=== PATIENT | male | born 1950 | race Caucasian/White ===

== ENCOUNTER 2019-05-28 11:52 | Inpatient (IN) | payer MEDICARE, MEDICAID ==
[~2019-05-28] VITALS: Ht 185.4 cm; Wt 71.7 kg
[2019-05-28] MEDS ORDERED: CARVEDILOL25 MG ORAL (12:01)
[2019-05-28] MEDS ORDERED: HYDRALAZINE HCL10 MG ORAL (12:07)
[2019-05-28] MEDS ORDERED: FERROUS SULFAT325 MG ORAL (12:07)
[2019-05-28] MEDS ORDERED: PROCRIT2000 UNIT/ SUBQ (12:07)
[2019-05-28] MEDS ORDERED: TRAZODONE HCL50 MG ORAL (12:07)
[2019-05-28] MEDS ORDERED: FOLIC ACID1 MG ORAL (12:07)
[2019-05-28] MEDS ORDERED: FLUTICASONE-SA1 EAC3 IH (12:07)
[2019-05-28] MEDS ORDERED: GEMFIBROZIL600 MG ORAL (12:07)
[2019-05-28] MEDS ORDERED: PROSCAR5 MG ORAL (12:07)
[2019-05-28] MEDS ORDERED: FUROSEMIDE20 M1 ORAL (12:07)
[2019-05-28] MEDS ORDERED: HALOPERIDOL0.5 MG ORAL (12:07)
[2019-05-28] MEDS ORDERED: NORVASC10 MG ORAL (12:07)
[2019-05-28 12:27] VITALS: BP 132/78
[2019-05-28 12:43] LABS: BASOPHILS % (AUTO) 0.7 % (0.0-2.0); EOSINOPHILS % (AUTO) 0.3 % (0.0-3.0); HEMATOCRIT 26.3 % (42.0-52.0); HEMOGLOBIN 8.7 G/DL (14.2-18.0); LYMPHOCYTES % (AUTO) 15.7 % (20.0-45.0); MEAN CORPUSCULAR VOLUME 93 FL (80-99); MONOCYTES % (AUTO) 6.8 % (1.0-10.0); NEUTROPHILS % (AUTO) 76.5 % (45.0-75.0); PLATELET COUNT 251 K/UL (150-450); RED BLOOD COUNT 2.85 M/UL (4.70-6.10); WHITE BLOOD COUNT 4.6 K/UL (4.8-10.8)
[2019-05-28 12:56] LABS: ANION GAP 21 mmol/L (5-15); BLOOD UREA NITROGEN 75 mg/dL (7-18); CALCIUM 8.9 MG/DL (8.5-10.1); CARBON DIOXIDE 12 MMOL/L (21-32); CHLORIDE 104 MMOL/L (98-107); CREATININE 8.1 MG/DL (0.55-1.30); POTASSIUM 4.7 MMOL/L (3.5-5.1); SODIUM 137 MMOL/L (136-145)
[2019-05-28 13:08] LABS: ALANINE AMINOTRANSFERASE 43 U/L (12-78); ALBUMIN 2.7 G/DL (3.4-5.0); ALBUMIN/GLOBULIN RATIO 0.5 (1.0-2.7); ALKALINE PHOSPHATASE 98 U/L (46-116); ASPARTATE AMINO TRANSFERASE 58 U/L (15-37); BILIRUBIN,TOTAL 0.2 MG/DL (0.2-1.0); CKMB 0.8 NG/ML (0.0-3.6); CREATINE KINASE 89 U/L (26-308)
--- NOTE | 2019-05-28 13:33 | Diagnostic Imaging Report ---
Indication: Shortness of breath Technique: One view of the chest Comparison: none Findings: Inspiration is suboptimal. There is suggestion of slight prominence and nodularity to the interstitial markings bilaterally. No definite focal airspace consolidation. There is some atelectasis at the left lung base. The heart is borderline enlarged. No definite effusions Impression: Hypoventilatory exam Mildly prominent and possibly nodular interstitial markings, nonspecific and possibly exaggerated by low lung volumes. Primary differential considerations include but but are not limited to pulmonary edema, atypical pneumonia, noninfectious inflammatory processes Borderline cardiomegaly
--- NOTE | 2019-05-28 15:04 | Emergency Room Report ---
History of Present Illness General Chief Complaint: Dyspnea/Respdistress Source: Medical Record, EMS Present Illness HPI This patient is brought in by EMS from a alf facility. The patient presents during the COVID-19 pandemic. The alf facility that he presents from has many positive cases of COVID-19. He presents with fever, cough and shortness of breath. There are no other complaints. Allergies: Coded Allergies: No Known Allergies (Unverified , 05/28/19) COVID-19 Screening Contact w/high risk pt: Yes Recent Travel to affected area: No Experienced COVID-19 symptoms?: Yes COVID-19 symptoms experienced: Fever (T>100.4F or >38C), Shortness of Breath, Cough Patient History Past Medical History: DM, HTN, CAD, COPD, psych hx - schizophrenia, renal disease, other - HCV, HLP Social History: Denies: smoking, alcohol use, drug use Reviewed Nursing Documentation: PMH: Agreed; PSxH: Agreed Nursing Documentation-PMH Past Medical History: No History, Except For Hx COPD: Yes Review of Systems All Other Systems: negative except mentioned in HPI Physical Exam Vital Signs Date Time Temp Pulse Resp B/P (MAP) Pulse Ox O2 Delivery O2 Flow Rate FiO2 05/28/19 11:53 100.2 69 36 132/78 (96) 96 Room Air Sp02 EP Interpretation: reviewed, normal General Appearance: no apparent distress, alert, GCS 15, non-toxic Head: normocephalic, atraumatic Eyes: bilateral eye normal inspection, bilateral eye PERRL ENT: hearing grossly normal, normal pharynx, no angioedema, normal voice Neck: full range of motion, supple/symm/no masses Respiratory: normal breath sounds, no respiratory distress, no retraction, no accessory muscle use, speaking full sentences Cardiovascular #1: regular rate, rhythm, no edema Gastrointestinal: normal inspection, soft, non-distended, no guarding, no rebound Rectal: deferred Musculoskeletal: normal range of motion, non-tender Neurologic: alert, motor strength/tone normal, sensory intact, responsive, speech normal Psychiatric: mood/affect normal, no suicidal/homicidal ideation Skin: Decubitus/Ulcer - See RN skin exam. Medical Decision Making Diagnostic Impression: Primary Impression: Suspected COVID-19 virus infection Additional Impressions: Renal failure Anemia ER Course This patient presents with suspected COVID-19 pneumonia. He also has profound renal failure. He does have a history of stage V chronic kidney disease and I am unsure of his baseline. He also has anemia which is likely secondary to his renal status. He has multiple medical problems and given his likely infection with COVID-19 he has a very poor prognosis. He did maintain normal oxygen saturations on nasal cannula without any evidence of respiratory distress during the ED course. The patient is on droplet precautions per COVID-19 protocols. He was also given broad-spectrum antibiotics for hospital-acquired pneumonia. IV fluids were held for both his suspected COVID-19 infection in addition to his renal status. Likely this patient will need dialysis. This patient was evaluated in the context of the global COVID-19 pandemic, which necessitated consideration that the patient might be at risk for infection with the [id number] virus that causes COVID-19. Institutional protocols and algorithms that pertain to the evaluation of patients at risk for COVID-19 and the state of rapid change based on information released by multiple regulatory bodies including the CDC and federal and state organizations. These policies and algorithms were followed during the patient' s care in the ED. This patient is critically ill. This patient required complex medical decision- making, aggressive intervention, extensive laboratory workup and monitoring. Critical care time: 40 minutes. Laboratory Tests Test 05/28/19 12:20 White Blood Count 4.6 K/UL (4.8-10.8) L Red Blood Count 2.85 M/UL (4.70-6.10) L Hemoglobin 8.7 G/DL (14.2-18.0) L Hematocrit 26.3 % (42.0-52.0) L Mean Corpuscular Volume 93 FL (80-99) Mean Corpuscular Hemoglobin 30.5 PG (27.0-31.0) Mean Corpuscular Hemoglobin Concent 33.0 G/DL (32.0-36.0) Red Cell Distribution Width 14.0 % (11.6-14.8) Platelet Count 251 K/UL (150-450) Mean Platelet Volume 6.3 FL (6.5-10.1) L Neutrophils (%) (Auto) 76.5 % (45.0-75.0) H Lymphocytes (%) (Auto) 15.7 % (20.0-45.0) L Monocytes (%) (Auto) 6.8 % (1.0-10.0) Eosinophils (%) (Auto) 0.3 % (0.0-3.0) Basophils (%) (Auto) 0.7 % (0.0-2.0) Sodium Level 137 MMOL/L (136-145) Potassium Level 4.7 MMOL/L (3.5-5.1) Chloride Level 104 MMOL/L (98-107) Carbon Dioxide Level 12 MMOL/L (21-32) L Anion Gap 21 mmol/L (5-15) H Blood Urea Nitrogen 75 mg/dL (7-18) H Creatinine 8.1 MG/DL (0.55-1.30) H Estimated Glomerular Filtration Rate 6.7 mL/min (>60) Glucose Level 145 MG/DL (74-106) H Lactic Acid Level 0.50 mmol/L (0.4-2.0) Calcium Level 8.9 MG/DL (8.5-10.1) Total Bilirubin 0.2 MG/DL (0.2-1.0) Aspartate Amino Transferase (AST) 58 U/L (15-37) H Alanine Aminotransferase (ALT) 43 U/L (12-78) Alkaline Phosphatase 98 U/L (46-116) Total Creatine Kinase 89 U/L (26-308) Creatine Kinase MB 0.8 NG/ML (0.0-3.6) Creatine Kinase MB Relative Index 0.8 Troponin I 0.000 ng/mL (0.000-0.056) Total Protein 8.3 G/DL (6.4-8.2) H Albumin 2.7 G/DL (3.4-5.0) L Globulin 5.6 g/dL Albumin/Globulin Ratio 0.5 (1.0-2.7) L EKG Diagnostic Results Rate: normal ST Segments: no acute changes Rhythm Strip Diag. Results EP Interpretation: yes Rate: 60's Rhythm: NSR, no PVC's, no ectopy Chest X-Ray Diagnostic Results Chest X-Ray Diagnostic Results : Chest X-Ray Ordered: Yes # of Views/Limited/Complete: 1 View Indication: Shortness of Breath EP Interpretation: Yes Interpretation: other - Diffuse patchy opacities. Impression: Other - Pulmonary edema Electronically Signed by: Amy uMñoz DO Last Vital Signs Date Time Temp Pulse Resp B/P (MAP) Pulse Ox O2 Delivery O2 Flow Rate FiO2 05/28/19 12:27 69 25 Room Air 05/28/19 12:27 100.2 132/78 96 Disposition: ADMITTED INPATIENT Condition: Critical Referrals: Karishma Mulligan MD (PCP) Amy Muñoz DO May 28, 2019 15:04
[2019-05-28 15:56] LABS: APPEARANCE,URINE CLEAR; BILIRUBIN, URINE NEGATIVE (NEGATIVE); COLOR,URINE PALE YELLOW; GLUCOSE, URINE (UA) 2+ (NEGATIVE); KETONES,URINE NEGATIVE (NEGATIVE); LEUKOCYTE ESTERASE ,URINE NEGATIVE (NEGATIVE); NITRITE,URINE NEGATIVE (NEGATIVE); PH,URINE 5 (4.5-8.0); PROTEIN,URINE 4+ (NEGATIVE); UROBILINOGEN,URINE NORMAL MG/DL (0.0-1.0)
[2019-05-28 16:40] VITALS: BP 148/90
[2019-05-28] MEDS ORDERED: Acetaminophen 500mg (ES) tab ORAL PRN ×2 (17:15)
[2019-05-28] MEDS: Azithromycin 500 MG in D5W 275 ML IV SCH (18:41)
[2019-05-28] MEDS ORDERED: Albuterol 90mcg Inhaler 8gm INH PRN (19:00)
[2019-05-28] MEDS ORDERED: MILK OF MA400 MG/51 ORAL (19:22)
[2019-05-28] MEDS ORDERED: Epoetin Alfa-EPBX (NON ESRD) 2000 units/ml vial SUBQ SCH (19:30)
[2019-05-28 20:00] VITALS: BP 147/84
[2019-05-28] MEDS: TraZODone 50mg tab ORAL SCH (20:38)
[2019-05-28] MEDS: cefTRIAXone 1 GM in D5W 55 ML IVPB SCH (20:38)
[2019-05-28] MEDS: Carvedilol 25mg Tab ORAL SCH (20:39)
[2019-05-28] MEDS ORDERED: Milk of Magnesia 30ml Ud ORAL PRN (21:00)
--- NOTE | 2019-05-28 22:37 | Pulmonology Progress Note ---
Assessment/Plan Assessment/Plan Pulmonary Consultation HPI: Patient is a 68 year old man, long term resident, admitted c/o shortness of breath, cough, facility has a number of COVID-19 patients, noted to have fever. Dyspnea Past Medical History: COPD, CKD, Hypertension, Anemia Allergies: No Known Allergies Physical Exam Vital Signs Noted Date Time Temp Pulse Resp B/P (MAP) Pulse Ox O2 Delivery O2 Flow Rate FiO2 05/28/19 11:53 100.2 69 36 132/78 (96) 96 Room Air WDWN, no distress HEENT: NCAT,moist mm Chest: Occasional rhonchi Heart: HS1, HS2, RRR Abdomen: SNTND, no masses Extremities: Well perfused, no edema [employer] C[employer]: No focalsigns, no seizures, responsive to commands. 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 Medications 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 Monitor cultures/viral studies PPX Laboratory Tests Noted: Test 05/28/19 12:20 White Blood Count 4.6 K/UL (4.8-10.8) L Red Blood Count 2.85 M/UL (4.70-6.10) L Hemoglobin 8.7 G/DL (14.2-18.0) L Hematocrit 26.3 % (42.0-52.0) L Mean Corpuscular Volume 93 FL (80-99) Mean Corpuscular Hemoglobin 30.5 PG (27.0-31.0) Mean Corpuscular Hemoglobin Concent 33.0 G/DL (32.0-36.0) Red Cell Distribution Width 14.0 % (11.6-14.8) Platelet Count 251 K/UL (150-450) Mean Platelet Volume 6.3 FL (6.5-10.1) L Neutrophils (%) (Auto) 76.5 % (45.0-75.0) H Lymphocytes (%) (Auto) 15.7 % (20.0-45.0) L Monocytes (%) (Auto) 6.8 % (1.0-10.0) Eosinophils (%) (Auto) 0.3 % (0.0-3.0) Basophils (%) (Auto) 0.7 % (0.0-2.0) Sodium Level 137 MMOL/L (136-145) Potassium Level 4.7 MMOL/L (3.5-5.1) Chloride Level 104 MMOL/L (98-107) Carbon Dioxide Level 12 MMOL/L (21-32) L Anion Gap 21 mmol/L (5-15) H Blood Urea Nitrogen 75 mg/dL (7-18) H Creatinine 8.1 MG/DL (0.55-1.30) H Estimated Glomerular Filtration Rate 6.7 mL/min (>60) Glucose Level 145 MG/DL (74-106) H Lactic Acid Level 0.50 mmol/L (0.4-2.0) Calcium Level 8.9 MG/DL (8.5-10.1) Total Bilirubin 0.2 MG/DL (0.2-1.0) Aspartate Amino Transferase (AST) 58 U/L (15-37) H Alanine Aminotransferase (ALT) 43 U/L (12-78) Alkaline Phosphatase 98 U/L (46-116) Total Creatine Kinase 89 U/L (26-308) Creatine Kinase MB 0.8 NG/ML (0.0-3.6) Creatine Kinase MB Relative Index 0.8 Troponin I 0.000 ng/mL (0.000-0.056) Total Protein 8.3 G/DL (6.4-8.2) H Albumin 2.7 G/DL (3.4-5.0) L Globulin 5.6 g/dL Albumin/Globulin Ratio 0.5 (1.0-2.7) L CXR: Hypoventilatory exam, interstitial changes, cardiomegaly Subjective ROS Limited/Unobtainable: No Respiratory: Reports: dry cough, shortness of breath Allergies: Coded Allergies: No Known Allergies (Unverified , 05/28/19) Objective Last 24 Hour Vital Signs Date Time Temp Pulse Resp B/P (MAP) Pulse Ox O2 Delivery O2 Flow Rate FiO2 05/28/19 20:39 73 147/83 05/28/19 20:00 Room Air 05/28/19 20:00 97.8 20 147/84 (105) 96 05/28/19 19:34 78 05/28/19 17:01 Room Air 05/28/19 16:40 98.2 20 148/90 (109) 94 05/28/19 16:30 97.3 75 25 148/67 99 Room Air 05/28/19 12:27 69 25 Room Air 05/28/19 12:27 100.2 66 25 132/78 96 Room Air 05/28/19 11:53 100.2 69 36 132/78 (96) 96 Room Air Microbiology Date/Time Source Procedure Growth Status 05/28/19 17:50 Rectum Received Laboratory Tests 05/28/19 12:20: White Blood Count 4.6L, Red Blood Count 2.85L, Hemoglobin 8.7L, Hematocrit 26.3L , Mean Corpuscular Volume 93, Mean Corpuscular Hemoglobin 30.5, Mean Corpuscular Hemoglobin Concent 33.0, Red Cell Distribution Width 14.0, Platelet Count 251, Mean Platelet Volume 6.3L, Neutrophils (%) (Auto) 76.5H, Lymphocytes (%) (Auto) 15.7L, Monocytes (%) (Auto) 6.8, Eosinophils (%) (Auto) 0.3, Basophils (%) (Auto) 0.7, Sodium Level 137, Potassium Level 4.7, Chloride Level 104, Carbon Dioxide Level 12L, Anion Gap 21H, Blood Urea Nitrogen 75H, Creatinine 8.1H, Estimat Glomerular Filtration Rate 6.7, Glucose Level 145H, Lactic Acid Level 0.50, Calcium Level 8.9, Total Bilirubin 0.2, Aspartate Amino Transf (AST/SGOT) 58H, Alanine Aminotransferase (ALT/SGPT) 43, Alkaline Phosphatase 98, Total Creatine Kinase 89, Creatine Kinase MB 0.8, Creatine Kinase MB Relative Index 0.8, Troponin I 0.000, Total Protein 8.3H, Albumin 2.7L , Globulin 5.6, Albumin/Globulin Ratio 0.5L 05/28/19 14:00: Urine Color Pale yellow, Urine Appearance Clear, Urine pH 5, Urine Specific Lane 1.015, Urine Protein 4+H, Urine Glucose (UA) 2+H, Urine Ketones Negative , Urine Blood 2+H, Urine Nitrite Negative, Urine Bilirubin Negative, Urine Urobilinogen Normal, Urine Leukocyte Esterase Negative, Urine RBC 2-4H, Urine WBC 0, Urine Squamous Epithelial Cells None, Urine Bacteria Few Current Medications Medications (Trade) Dose Ordered Sig/Anthony Route PRN Reason Start Time Stop Time Status Last Admin Dose Admin Acetaminophen (Tylenol) 650 mg Q6HR PRN ORAL MILD PAIN/Temp >100.5 05/28/19 17:45 06/27/19 17:44 Albuterol Sulfate (Proventil MDI) 2 puff Q4H PRN INH Shortness of Breath 05/28/19 19:00 08/26/19 18:59 Amlodipine Besylate (Norvasc) 10 mg DAILY ORAL 05/29/19 09:00 06/28/19 08:59 Azithromycin 500 mg/Dextrose 275 ml @ 275 mls/hr Q24HRS IV 05/28/19 17:45 06/03/19 18:44 05/28/19 18:41 Carvedilol (Coreg) 25 mg EVERY 12 HOURS ORAL 05/28/19 21:00 06/27/19 20:59 05/28/19 20:39 Ceftriaxone Sodium 1 gm/ Dextrose 55 ml @ 110 mls/hr Q24H IVPB 05/28/19 21:00 06/04/19 20:59 05/28/19 20:38 Enoxaparin Sodium (Lovenox) 30 mg DAILY SUBQ 05/29/19 09:00 08/27/19 08:59 Epoetin Aftab (Epoetin Aftab-EPBX(NON ESRD)) 1,000 unit ONCE A WEEK SUBQ 05/28/19 19:30 08/26/19 19:29 05/28/19 20:37 Ferrous Sulfate (Feosol) 325 mg BID ORAL 05/29/19 09:00 08/27/19 08:59 Finasteride (Proscar) 5 mg DAILY ORAL 05/29/19 09:00 08/27/19 08:59 Folic Acid (Folate) 1 mg DAILY ORAL 05/29/19 09:00 06/28/19 08:59 Furosemide (Lasix) 60 mg DAILY ORAL 05/29/19 09:00 06/28/19 08:59 Gemfibrozil (Lopid) 600 mg BIAC ORAL 05/29/19 06:30 06/28/19 06:29 Haloperidol (Haldol) 0.5 mg TID ORAL 05/29/19 09:00 07/13/19 08:59 Hydralazine HCl (Apresoline) 10 mg BID ORAL 05/29/19 09:00 08/27/19 08:59 Magnesium Hydroxide (Mom) 30 ml HSPRN PRN ORAL Constipation 05/28/19 21:00 06/27/19 20:59 Salmeterol Xinafoate/ Fluticasone (Advair 100/50 Diskus) 1 puffs BID INH 05/29/19 09:00 08/27/19 08:59 Trazodone HCl (Desyrel) 25 mg BEDTIME ORAL 05/28/19 21:00 06/27/19 20:59 05/28/19 20:38 Arturo Mckeon MD May 28, 2019 22:37
--- NOTE | 2019-05-28 23:41 | Initial Psychiatric Evaluation ---
Psychiatry Consultation Psychiatry Consultation Chief Complaint: Dyspnea/Respdistress History of Present Illness: Assess the pt via phone. in isolation for covid the pt is a 68 yo male with hx of mmp who is admitted for covid sxs. the pt is well known to me. the pt has hx of insomnia and anxiety. the pt is on haldol and trazadone no si/hi calm and cooperative Allergies: Coded Allergies: No Known Allergies (Unverified , 05/28/19) Past Psychiatric History: mdd anx no sa Medical History: copd htn Substance Abuse History: none Social/Family/Abuse/Legal Hx: lives at [facility] Medication History Scheduled Amlodipine Besylate (Norvasc), 10 MG ORAL DAILY, (Reported) Carvedilol* (Carvedilol*), 25 MG ORAL EVERY 12 HOURS, (Reported) Epoetin Aftab (Procrit), 1,000 UNIT SUBQ ONCE A WEEK, (Reported) Ferrous Sulfate* (Ferrous Sulfate*), 325 MG ORAL BID, (Reported) Finasteride* (Proscar*), 5 MG ORAL DAILY, (Reported) Folic Acid* (Folic Acid*), 1 MG ORAL DAILY, (Reported) Furosemide* (Lasix*), 60 MG ORAL DAILY, (Reported) Haloperidol* (Haldol*), 0.5 MG ORAL TID, (Reported) Hydralazine Hcl* (Hydralazine Hcl*), 10 MG ORAL BID, (Reported) Trazodone Hcl* (Desyrel*), 25 MG ORAL BEDTIME, (Reported) Scheduled PRN Magnesium Hydroxide* (Milk Of Magnesia*), 30 ML ORAL HS PRN for Constipation, ( Reported) Miscellaneous Medications Fluticasone Propion/Salmeterol (Fluticasone-Salmeterol 100-50), 1 EACH IH, ( Reported) Gemfibrozil (Gemfibrozil*), 600 MG ORAL, (Reported) Patient History History Provided By: Patient, Medical Record Objective Data Height (Feet): 6 Height (Inches): 1.00 Weight (Pounds): 205 Mood: anxious Thought Process: logical, goal-directed Suicidal Ideation: not present Assessment/Plan Diagnosis [place] I: mdd anxiety -trazadone 25mg po qhs -haldol prn Guicho Pimentel MD May 28, 2019 23:40
[2019-05-28] MEDS ORDERED: Haloperidol 5mg/ml Inj IM PRN (23:45)
[2019-05-29] VITALS: BP 149/80
[2019-05-29 04:00] VITALS: BP 148/84
[2019-05-29 07:53] LABS: HEMATOCRIT 25.1 % (42.0-52.0); HEMOGLOBIN 8.5 G/DL (14.2-18.0); MEAN CORPUSCULAR VOLUME 91 FL (80-99); PLATELET COUNT 240 K/UL (150-450); RED BLOOD COUNT 2.76 M/UL (4.70-6.10); RED CELL DISTRIBUTION WIDTH 13.5 % (11.6-14.8); WHITE BLOOD COUNT 7.1 K/UL (4.8-10.8)
[2019-05-29 08:00] VITALS: BP 142/79
[2019-05-29 08:04] LABS: ALANINE AMINOTRANSFERASE 39 U/L (12-78); ALBUMIN 2.5 G/DL (3.4-5.0); ALBUMIN/GLOBULIN RATIO 0.4 (1.0-2.7); ALKALINE PHOSPHATASE 86 U/L (46-116); ANION GAP 21 mmol/L (5-15); ASPARTATE AMINO TRANSFERASE 46 U/L (15-37); BILIRUBIN,TOTAL 0.2 MG/DL (0.2-1.0); BLOOD UREA NITROGEN 78 mg/dL (7-18); CALCIUM 8.8 MG/DL (8.5-10.1); CARBON DIOXIDE 11 MMOL/L (21-32); CHLORIDE 104 MMOL/L (98-107); CREATININE 8.4 MG/DL (0.55-1.30); POTASSIUM 4.8 MMOL/L (3.5-5.1); SODIUM 136 MMOL/L (136-145)
[2019-05-29] MEDS: Carvedilol 25mg Tab ORAL SCH ×2 (08:55→21:00)
[2019-05-29] MEDS ORDERED: HydrALAZINE 10mg Tab ORAL SCH (09:00)
[2019-05-29] MEDS ORDERED: Haloperidol 1mg tab ORAL SCH (09:00)
[2019-05-29] MEDS: Enoxaparin 30mg Inj SUBQ SCH (09:06)
[2019-05-29] MEDS: Wixela 100/50 Inhaler - 60 dose INH SCH ×2 (09:42→18:00)
--- NOTE | 2019-05-29 10:59 | Consultation ---
Consult Note Consult Note I am asked to evaluate the patient at the request of Dr. Carmona for renal failure management Patient is a 68 year old man, [facility] resident, admitted c/o shortness of breath, cough, facility has a number of COVID-19 patients, noted to have fever. Dyspnea Past Medical History: COPD, CKD, Hypertension, Anemia No Known Allergies Discussed with RN Data reviewed Patient examined . Assessment/Plan Acute renal failure most likely superimposed on chronic kidney disease Suspected COVID-19 virus infection Possible Pneumonia, lymphopenia, elevated AST Cardiomegaly, possible CHF COPD Hypertension Anemia, most likely related to chronic kidney disease Plan: Per pulmonary advice Adjust blood pressure medication Renal diet Anemia work-up 2D echocardiogram Kidney ultrasound Jules catheter Urine studies Per orders Mic Cole MD May 29, 2019 10:59
[2019-05-29 11:49] VITALS: BP 126/73
[2019-05-29] MEDS: Sodium Citrate 30ml ORAL SCH ×2 (12:13→18:13)
[2019-05-29] MEDS: Docusate 100mg cap ORAL SCH ×2 (12:14→18:13)
[2019-05-29] MEDS: HydrALAZINE 10mg Tab ORAL SCH ×2 (14:41→21:46)
[2019-05-29 15:49] VITALS: BP 130/71
[2019-05-29] MEDS: Azithromycin 500 MG in D5W 275 ML IV SCH (18:12)
[2019-05-29 20:00] VITALS: BP 148/81
[2019-05-29] MEDS: TraZODone 50mg tab ORAL SCH (21:00)
--- NOTE | 2019-05-29 21:29 | History and Physical Report ---
DATE OF ADMISSION: 05/28/2019 HISTORY OF PRESENT ILLNESS: The patient came in because of low-grade fever at the long term. The patient is admitted to rule out COVID-19 pneumonia to rule that out and also acute renal failure. Chest x-ray showed mild pulmonary edema as well as anemia. The patient basically had shortness of breath and rales as well as cough and for those reasons, I cannot get more history from the patient, but apparently no vomiting, no diarrhea, and no chills. PAST MEDICAL HISTORY: Significant for organic brain syndrome, COPD, anemia, possible chronic renal failure, iron-deficiency anemia, BPH, hyperlipidemia, psychosis, depression, hypertension, and chronic renal insufficiency. PAST SURGICAL HISTORY: None. ALLERGIES: No known allergies. FAMILY HISTORY: Noncontributory. MEDICATIONS: Coreg, Epogen, ferrous sulfate, finasteride, Lasix, gemfibrozil, Haldol, hydralazine, and trazodone. REVIEW OF SYSTEMS: HEENT: Denies headaches. RESPIRATORY: Reports shortness of breath and cough for a couple of days. CARDIOVASCULAR: Denies chest pain. GASTROINTESTINAL: Denies nausea, vomiting, or diarrhea. EXTREMITIES: Denies pain. CENTRAL NERVOUS SYSTEM: Denies change in speech pattern. PHYSICAL EXAMINATION: VITAL SIGNS: Temperature is 96.1, pulse is 75, blood pressure 142/79. HEENT: PERRLA. NECK: Supple CHEST: Clear to auscultation. CARDIOVASCULAR: Regular rate and rhythm. ABDOMEN: Soft. Positive bowel sounds. No organomegaly. EXTREMITIES: No edema. NEUROLOGIC: He is able to move his extremities. LABORATORY DATA: WBC of 4.6, hemoglobin 8.7, platelets of 251,000. Sodium 137, potassium 4.7, BUN of 75, creatinine of 8.1, and glucose of 145. ASSESSMENT AND PLAN: 1. Acute renal failure on top of chronic renal failure. 2. Rule out COVID-19 pneumonia. I have consulted Dr. Cole, Dr. Ted Leyva, Dr. Mckeon, and Dr. Pimentel for the patient's psychosis and depression as well as for the treatment of the pneumonia as well as for the treatment of acute renal failure on top of chronic renal failure. Antibiotics per Dr. Ted Leyva. Ali Luisa Mulligan DR: Norah JOB#: [id number] CC:
[2019-05-29] MEDS: cefTRIAXone 1 GM in D5W 55 ML IVPB SCH (22:42)
--- NOTE | 2019-05-29 22:42 | Pulmonology Progress Note ---
Assessment/Plan Assessment/Plan Pulmonary Progress HPI: Patient is a 68 year old man, group home resident, admitted c/o shortness of breath, cough, facility has a number of COVID-19 patients, noted to have fever. 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 Monitor cultures/viral studies PPX Laboratory Tests Noted: Test 05/28/19 12:20 White Blood Count 4.6 K/UL (4.8-10.8) L Red Blood Count 2.85 M/UL (4.70-6.10) L Hemoglobin 8.7 G/DL (14.2-18.0) L Hematocrit 26.3 % (42.0-52.0) L Mean Corpuscular Volume 93 FL (80-99) Mean Corpuscular Hemoglobin 30.5 PG (27.0-31.0) Mean Corpuscular Hemoglobin Concent 33.0 G/DL (32.0-36.0) Red Cell Distribution Width 14.0 % (11.6-14.8) Platelet Count 251 K/UL (150-450) Mean Platelet Volume 6.3 FL (6.5-10.1) L Neutrophils (%) (Auto) 76.5 % (45.0-75.0) H Lymphocytes (%) (Auto) 15.7 % (20.0-45.0) L Monocytes (%) (Auto) 6.8 % (1.0-10.0) Eosinophils (%) (Auto) 0.3 % (0.0-3.0) Basophils (%) (Auto) 0.7 % (0.0-2.0) Sodium Level 137 MMOL/L (136-145) Potassium Level 4.7 MMOL/L (3.5-5.1) Chloride Level 104 MMOL/L (98-107) Carbon Dioxide Level 12 MMOL/L (21-32) L Anion Gap 21 mmol/L (5-15) H Blood Urea Nitrogen 75 mg/dL (7-18) H Creatinine 8.1 MG/DL (0.55-1.30) H Estimated Glomerular Filtration Rate 6.7 mL/min (>60) Glucose Level 145 MG/DL (74-106) H Lactic Acid Level 0.50 mmol/L (0.4-2.0) Calcium Level 8.9 MG/DL (8.5-10.1) Total Bilirubin 0.2 MG/DL (0.2-1.0) Aspartate Amino Transferase (AST) 58 U/L (15-37) H Alanine Aminotransferase (ALT) 43 U/L (12-78) Alkaline Phosphatase 98 U/L (46-116) Total Creatine Kinase 89 U/L (26-308) Creatine Kinase MB 0.8 NG/ML (0.0-3.6) Creatine Kinase MB Relative Index 0.8 Troponin I 0.000 ng/mL (0.000-0.056) Total Protein 8.3 G/DL (6.4-8.2) H Albumin 2.7 G/DL (3.4-5.0) L Globulin 5.6 g/dL Albumin/Globulin Ratio 0.5 (1.0-2.7) L CXR: Hypoventilatory exam, interstitial changes, cardiomegaly Subjective ROS Limited/Unobtainable: No Allergies: Coded Allergies: No Known Allergies (Unverified , 05/28/19) Objective Last 24 Hour Vital Signs Date Time Temp Pulse Resp B/P (MAP) Pulse Ox O2 Delivery O2 Flow Rate FiO2 05/29/19 20:00 76 05/29/19 20:00 76 20 148/81 (103) 95 05/29/19 20:00 Room Air 05/29/19 16:00 Room Air 05/29/19 15:49 98.1 72 20 130/71 (90) 95 05/29/19 14:41 142/77 05/29/19 13:14 74 05/29/19 12:00 Room Air 05/29/19 11:49 97.5 69 20 126/73 (90) 95 05/29/19 11:48 68 05/29/19 09:43 74 20 96 Room Air 21 05/29/19 09:40 71 20 96 Room Air 21 05/29/19 08:55 142/79 05/29/19 08:55 75 147/79 05/29/19 08:54 75 142/79 05/29/19 08:05 78 05/29/19 08:00 Room Air 05/29/19 08:00 96.1 75 20 142/79 (100) 95 05/29/19 04:00 Room Air 05/29/19 04:00 79 05/29/19 04:00 97.9 77 20 148/84 (105) 95 05/29/19 00:00 Room Air 05/29/19 00:00 98.7 20 149/80 (103) 96 05/28/19 23:41 72 Intake and Output 05/28/19 05/29/19 19:00 07:00 Intake Total 300 ml Output Total 300 ml 600 ml Balance -300 ml -300 ml Intake Oral 300 ml Output Urine Total 300 ml 600 ml # Bowel Movements 1 1 Microbiology Date/Time Source Procedure Growth Status 05/28/19 22:55 Nasal Nares - Final Complete 05/28/19 22:55 Nasal Nares - Final Complete 05/28/19 16:55 Stool Clostridium difficile Toxin Assay - Final Complete 05/28/19 17:50 Rectum Received Laboratory Tests 05/29/19 06:50: White Blood Count 7.1#, Red Blood Count 2.76L, Hemoglobin 8.5L, Hematocrit 25.1L , Mean Corpuscular Volume 91, Mean Corpuscular Hemoglobin 30.9, Mean Corpuscular Hemoglobin Concent 34.0, Red Cell Distribution Width 13.5, Platelet Count 240, Mean Platelet Volume 6.4L, Neutrophils (%) (Auto) , Lymphocytes (%) ( Auto) , Monocytes (%) (Auto) , Eosinophils (%) (Auto) , Basophils (%) (Auto) , Differential Total Cells Counted 100, Neutrophils % (Manual) 87H, Lymphocytes % (Manual) 10L, Monocytes % (Manual) 3, Eosinophils % (Manual) 0, Basophils % ( Manual) 0, Band Neutrophils 0, Platelet Estimate Adequate, Platelet Morphology Normal, Red Blood Cell Morphology Normal, Sodium Level 136, Potassium Level 4.8 , Chloride Level 104, Carbon Dioxide Level 11L, Anion Gap 21H, Blood Urea Nitrogen 78H, Creatinine 8.4H, Estimat Glomerular Filtration Rate 6.4, Glucose Level 115H, Calcium Level 8.8, Total Bilirubin 0.2, Aspartate Amino Transf (AST/ SGOT) 46H, Alanine Aminotransferase (ALT/SGPT) 39, Alkaline Phosphatase 86, Total Protein 8.2, Albumin 2.5L, Globulin 5.7, Albumin/Globulin Ratio 0.4L Current Medications Medications (Trade) Dose Ordered Sig/Anthony Route PRN Reason Start Time Stop Time Status Last Admin Dose Admin Acetaminophen (Tylenol) 650 mg Q6HR PRN ORAL MILD PAIN/Temp >100.5 05/28/19 17:45 06/27/19 17:44 Albuterol Sulfate (Proventil MDI) 2 puff Q4H PRN INH Shortness of Breath 05/28/19 19:00 08/26/19 18:59 Amlodipine Besylate (Norvasc) 10 mg DAILY ORAL 05/30/19 09:00 06/28/19 08:59 Azithromycin 500 mg/Dextrose 275 ml @ 275 mls/hr Q24HRS IV 05/28/19 17:45 06/03/19 18:44 05/29/19 18:12 Carvedilol (Coreg) 25 mg EVERY 12 HOURS ORAL 05/28/19 21:00 06/27/19 20:59 05/29/19 08:55 Ceftriaxone Sodium 1 gm/ Dextrose 55 ml @ 110 mls/hr Q24H IVPB 05/28/19 21:00 06/04/19 20:59 05/28/19 20:38 Docusate Sodium (Colace) 100 mg THREE TIMES A DAY ORAL 05/29/19 13:00 06/28/19 12:59 05/29/19 18:13 Enoxaparin Sodium (Lovenox) 30 mg DAILY SUBQ 05/29/19 09:00 08/27/19 08:59 05/29/19 09:06 Epoetin Aftab (Epoetin Aftab-EPBX(NON ESRD)) 1,000 unit QWEEK SUBQ 06/04/19 21:00 09/02/19 20:59 Finasteride (Proscar) 5 mg DAILY ORAL 05/29/19 09:00 08/27/19 08:59 05/29/19 08:53 Folic Acid (Folate) 1 mg DAILY ORAL 05/29/19 09:00 06/28/19 08:59 05/29/19 09:06 Haloperidol Lactate (Haldol) 5 mg Q6H PRN IM Agitation 05/28/19 23:45 07/12/19 23:44 Hydralazine HCl (Apresoline) 10 mg Q8HR ORAL 05/29/19 14:00 08/27/19 08:59 05/29/19 14:41 Pantoprazole (Protonix) 40 mg EVERY 12 HOURS ORAL 05/29/19 21:00 06/28/19 20:59 Salmeterol Xinafoate/ Fluticasone (Advair 100/50 Diskus) 1 puffs BID INH 05/29/19 09:00 08/27/19 08:59 05/29/19 09:42 Sodium Citrate (Bicitra) 30 ml EVERY 6 HOURS ORAL 05/29/19 12:00 06/28/19 11:59 05/29/19 18:13 Trazodone HCl (Desyrel) 25 mg BEDTIME ORAL 05/28/19 21:00 06/27/19 20:59 05/28/19 20:38 Arturo Mckeon MD May 29, 2019 22:42
[2019-05-30] VITALS: BP 133/68
--- NOTE | 2019-05-30 01:59 | Progress Note ---
DATE: 05/29/2019 SUBJECTIVE: The patient is in bed, awaiting for COVID-19 test results, easily agitated, has episodes of agitation manageable on current psychotropic medication. MENTAL STATUS EXAMINATION: Alert and oriented times self, place, and mood is irritable. Affect is flat. Thought process is concrete. Thought content, no suicidal or homicidal ideation. ASSESSMENT: 1. MDD. 2. Anxiety. 3. Cognitive impairment. PLAN: 1. Trazodone 25 mg. 2. Haldol as needed. Guicho Pimentel M.D. DR: Yogesh JOB#: [id number] CC:
[2019-05-30 04:00] VITALS: BP 127/73
[2019-05-30] MEDS: HydrALAZINE 10mg Tab ORAL SCH ×3 (06:00→21:44)
[2019-05-30] MEDS: Sodium Citrate 30ml ORAL SCH ×5 (06:00→23:50)
[2019-05-30] MEDS: Docusate 100mg cap ORAL SCH ×3 (09:00→18:00)
[2019-05-30] MEDS: Enoxaparin 30mg Inj SUBQ SCH (09:00)
[2019-05-30] MEDS: Wixela 100/50 Inhaler - 60 dose INH SCH ×2 (09:00→18:00)
[2019-05-30] MEDS: Carvedilol 25mg Tab ORAL SCH ×2 (09:00→21:43)
--- NOTE | 2019-05-30 09:29 | Nephrology Progress Note ---
Assessment/Plan Problem List: (1) CASSANDRA (acute kidney injury) (2) Anemia in chronic kidney disease (CKD) (3) HTN (hypertension) (4) Suspected COVID-19 virus infection Assessment Acute renal failure most likely superimposed on chronic kidney disease Suspected COVID-19 virus infection Possible Pneumonia, lymphopenia, elevated AST Cardiomegaly, possible CHF COPD Hypertension Anemia, most likely related to chronic kidney disease Plan Awaiting for today's lab results to make a decision for kardex clerk reports that the patient refusing medication periodically He also has been refusing tests that were ordered for him Per pulmonary advice Adjust blood pressure medication Renal diet Anemia work-up 2D echocardiogram Kidney ultrasound Jules catheter Urine studies Per orders Subjective ROS Limited/Unobtainable: No Constitutional: Reports: malaise Objective Objective Last 24 Hour Vital Signs Date Time Temp Pulse Resp B/P (MAP) Pulse Ox O2 Delivery O2 Flow Rate FiO2 05/30/19 04:00 79 05/30/19 04:00 Room Air 05/30/19 04:00 78 20 127/73 (91) 96 05/30/19 00:00 81 20 133/68 (89) 95 05/30/19 00:00 Room Air 05/29/19 23:57 80 05/29/19 23:01 Room Air 21 05/29/19 23:01 Room Air 21 05/29/19 20:00 76 05/29/19 20:00 76 20 148/81 (103) 95 05/29/19 20:00 Room Air 05/29/19 16:00 Room Air 05/29/19 15:49 98.1 72 20 130/71 (90) 95 05/29/19 14:41 142/77 05/29/19 13:14 74 05/29/19 12:00 Room Air 05/29/19 11:49 97.5 69 20 126/73 (90) 95 05/29/19 11:48 68 05/29/19 09:43 74 20 96 Room Air 21 05/29/19 09:40 71 20 96 Room Air 21 Intake and Output 05/29/19 05/30/19 19:00 07:00 Intake Total 800 ml 475 ml Output Total 700 ml 300 ml Balance 100 ml 175 ml Intake Oral 800 ml 200 ml IV Total 275 ml Output Urine Total 700 ml 300 ml # Voids 1 # Bowel Movements 2 None available at this time Height (Feet): 6 Height (Inches): 1.00 Weight (Pounds): 205 General Appearance: no apparent distress Objective No change Mic Cole MD May 30, 2019 09:29
--- NOTE | 2019-05-30 11:38 | Diagnostic Imaging Report ---
EXAM: XR Chest, 1 View CLINICAL HISTORY: INFECT TECHNIQUE: Frontal view of the chest. COMPARISON: Chest x-rays dated 05/28/19 FINDINGS: Lungs: No significant change in appearance of the interstitial and airspace opacities in bilateral lungs, concerning for pneumonia. Pleural space: Unremarkable. The costophrenic angles are sharp. No visible pneumothorax. Heart: Unremarkable. No cardiomegaly. Mediastinum: Unremarkable. Bones/joints: Unremarkable. Tubes, lines and devices: Telemetry leads overlie the thorax. IMPRESSION: No significant change in appearance of the interstitial and airspace opacities in bilateral lungs, concerning for pneumonia.
[2019-05-30] MEDS ORDERED: D5W 275ml ONE (13:18)
[2019-05-30] MEDS ORDERED: NS 275ml ONE (13:18)
[2019-05-30 16:00] VITALS: BP_SYST 127
--- NOTE | 2019-05-30 17:15 | Consultation ---
DATE OF CONSULTATION: 05/30/2019 INFECTIOUS DISEASES CONSULTATION CONSULTING PHYSICIAN: Ted Leyva MD. PRIMARY ATTENDING PHYSICIAN: Karishma Mulligan MD. REASON FOR CONSULTATION: COVID-19 disease. HISTORY OF PRESENT ILLNESS: The patient is a 68-year-old white male who is a assisted resident admitted on 05/28/2019 because of shortness of breath, cough, had low-grade fever at the time of admission. He also has chronic kidney disease which become worse at the time of admission. PAST MEDICAL HISTORY: Significant for chronic kidney disease, COPD, hypertension, anemia, hypothyroidism, hyperlipidemia, spinal stenosis, major depressive disorder. ALLERGIES: No known drug allergies. MEDICATIONS: Epogen, amlodipine, Protonix, hydralazine, Colace, enoxaparin, finasteride, Advair Diskus, haloperidol, ceftriaxone, carvedilol, trazodone, albuterol, azithromycin, Tylenol. SOCIAL HISTORY: Single. He is an ex-smoker. intermediate resident. REVIEW OF SYSTEMS: The patient currently denies fever, cough. No shortness of breath. No chest pain. No problem passing urine. PHYSICAL EXAMINATION: VITAL SIGNS: Temperature 98.1, pulse 79, blood pressure is 127/73. GENERAL APPEARANCE: No acute distress, well developed. HEAD AND NECK: [place] conjunctiva. HEART: Normal rate. LUNGS: Clear. ABDOMEN: Soft, nontender. GENITOURINARY: Has Jules catheter. EXTREMITIES: No edema. NEUROLOGIC: He is awake, alert, responsive, verbal. LABORATORY AND DIAGNOSTIC DATA: WBC yesterday 7.1, hemoglobin 8.5, hematocrit 25.1, and platelets 240. Sodium 136, potassium 4.8, chloride 104, bicarb 11, BUN 78, creatinine 8.4. AST slightly elevated . Albumin is 2.5. Nasal MRSA screen is positive. C. difficile negative. COVID-19 test done on 05/28/2019 is negative. Influenza A and B negative. Blood culture so far negative. Chest x-ray showed hypoventilatory exam, borderline cardiomegaly, possible nodular interstitial markings. IMPRESSION: 1. COVID-19 disease. 2. MRSA carrier. 3. Chronic kidney disease likely end-stage renal disease. 4. COPD. 5. Hypertension. 6. Anemia. 7. Hypothyroidism. 8. Hyperlipidemia. 9. Major depression. RECOMMENDATIONS: Continue Zithromax and Rocephin. If the patient's symptoms become worse, we will start on hydroxychloroquine. At the end of my exam, I thank Dr. Mulligan, for involving me in the care of this patient. Ted Leyva M.D. DR: Avani JOB#: [id number] CC: SIMI
[2019-05-30] MEDS: Azithromycin 500 MG in D5W 275 ML IV SCH (17:45)
--- NOTE | 2019-05-30 18:45 | General Progress Note ---
Assessment/Plan Problem List: (1) Anemia ICD Codes: D64.9 - Anemia, unspecified SNOMED: 892954220 (2) Renal failure ICD Codes: N19 - Unspecified kidney failure SNOMED: 90478282 (3) Suspected COVID-19 virus infection ICD Codes: R68.89 - Other general symptoms and signs SNOMED: 296242379 (4) HTN (hypertension) ICD Codes: I10 - Essential (primary) hypertension SNOMED: 32195670 (5) CASSANDRA (acute kidney injury) ICD Codes: N17.9 - Acute kidney failure, unspecified SNOMED: 8565706, 82778683 (6) Anemia in chronic kidney disease (CKD) ICD Codes: N18.9 - Chronic kidney disease, unspecified; D63.1 - Anemia in chronic kidney disease SNOMED: 316789141 (7) Suspected COVID-19 virus infection ICD Codes: R68.89 - Other general symptoms and signs SNOMED: 410842448 Status: progressing Assessment/Plan: worsening renal failure s/p hypoxica pna resp insuff Subjective ROS Limited/Unobtainable: Yes Allergies: Coded Allergies: No Known Allergies (Unverified , 05/28/19) Objective Last 24 Hour Vital Signs Date Time Temp Pulse Resp B/P (MAP) Pulse Ox O2 Delivery O2 Flow Rate FiO2 05/30/19 16:00 78 20 127/ 96 05/30/19 16:00 78 05/30/19 16:00 Room Air 05/30/19 12:00 73 24 05/30/19 12:00 71 05/30/19 12:00 Room Air 05/30/19 08:00 79 21 94 05/30/19 08:00 Room Air 05/30/19 07:53 78 05/30/19 04:00 79 05/30/19 04:00 Room Air 05/30/19 04:00 78 20 127/73 (91) 96 05/30/19 00:00 81 20 133/68 (89) 95 05/30/19 00:00 Room Air 05/29/19 23:57 80 05/29/19 23:01 Room Air 21 05/29/19 23:01 Room Air 21 05/29/19 20:00 76 05/29/19 20:00 76 20 148/81 (103) 95 05/29/19 20:00 Room Air Intake and Output 05/29/19 05/30/19 19:00 07:00 Intake Total 800 ml 475 ml Output Total 700 ml 300 ml Balance 100 ml 175 ml Intake Oral 800 ml 200 ml IV Total 275 ml Output Urine Total 700 ml 300 ml # Voids 1 # Bowel Movements 2 Height (Feet): 6 Height (Inches): 1.00 Weight (Pounds): 205 Karishma Mulligan MD May 30, 2019 18:45
[2019-05-30] MEDS ORDERED: Albuterol 90mcg Inhaler 8gm INH PRN (19:00)
[2019-05-30 20:00] VITALS: BP 152/101
[2019-05-30] MEDS ORDERED: TraZODone 50mg tab ORAL SCH (21:00)
[2019-05-30] MEDS: TraZODone HCl 25 mg tablet ORAL SCH (21:44)
[2019-05-30] MEDS: cefTRIAXone 1 GM in D5W 55 ML IVPB SCH (22:07)
--- NOTE | 2019-05-30 22:09 | Pulmonology Progress Note ---
Assessment/Plan Assessment/Plan Pulmonary Progress Note HPI: Patient is a 68 year old man, residential resident, admitted c/o shortness of breath, cough, facility has a number of COVID-19 patients, noted to have fever. 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 Monitor cultures/viral studies PPX Laboratory Tests Noted: Test 05/28/19 12:20 White Blood Count 4.6 K/UL (4.8-10.8) L Red Blood Count 2.85 M/UL (4.70-6.10) L Hemoglobin 8.7 G/DL (14.2-18.0) L Hematocrit 26.3 % (42.0-52.0) L Mean Corpuscular Volume 93 FL (80-99) Mean Corpuscular Hemoglobin 30.5 PG (27.0-31.0) Mean Corpuscular Hemoglobin Concent 33.0 G/DL (32.0-36.0) Red Cell Distribution Width 14.0 % (11.6-14.8) Platelet Count 251 K/UL (150-450) Mean Platelet Volume 6.3 FL (6.5-10.1) L Neutrophils (%) (Auto) 76.5 % (45.0-75.0) H Lymphocytes (%) (Auto) 15.7 % (20.0-45.0) L Monocytes (%) (Auto) 6.8 % (1.0-10.0) Eosinophils (%) (Auto) 0.3 % (0.0-3.0) Basophils (%) (Auto) 0.7 % (0.0-2.0) Sodium Level 137 MMOL/L (136-145) Potassium Level 4.7 MMOL/L (3.5-5.1) Chloride Level 104 MMOL/L (98-107) Carbon Dioxide Level 12 MMOL/L (21-32) L Anion Gap 21 mmol/L (5-15) H Blood Urea Nitrogen 75 mg/dL (7-18) H Creatinine 8.1 MG/DL (0.55-1.30) H Estimated Glomerular Filtration Rate 6.7 mL/min (>60) Glucose Level 145 MG/DL (74-106) H Lactic Acid Level 0.50 mmol/L (0.4-2.0) Calcium Level 8.9 MG/DL (8.5-10.1) Total Bilirubin 0.2 MG/DL (0.2-1.0) Aspartate Amino Transferase (AST) 58 U/L (15-37) H Alanine Aminotransferase (ALT) 43 U/L (12-78) Alkaline Phosphatase 98 U/L (46-116) Total Creatine Kinase 89 U/L (26-308) Creatine Kinase MB 0.8 NG/ML (0.0-3.6) Creatine Kinase MB Relative Index 0.8 Troponin I 0.000 ng/mL (0.000-0.056) Total Protein 8.3 G/DL (6.4-8.2) H Albumin 2.7 G/DL (3.4-5.0) L Globulin 5.6 g/dL Albumin/Globulin Ratio 0.5 (1.0-2.7) L CXR: Hypoventilatory exam, interstitial changes, cardiomegaly, no change Subjective ROS Limited/Unobtainable: No Allergies: Coded Allergies: No Known Allergies (Unverified , 05/28/19) Objective Last 24 Hour Vital Signs Date Time Temp Pulse Resp B/P (MAP) Pulse Ox O2 Delivery O2 Flow Rate FiO2 05/30/19 21:44 152/101 05/30/19 21:43 91 152/101 05/30/19 20:13 Room Air 05/30/19 20:00 97.6 91 20 152/101 (118) 93 05/30/19 16:00 78 20 127/ 96 05/30/19 16:00 78 05/30/19 16:00 Room Air 05/30/19 12:00 73 24 05/30/19 12:00 71 05/30/19 12:00 Room Air 05/30/19 08:00 79 21 94 05/30/19 08:00 Room Air 05/30/19 07:53 78 05/30/19 04:00 79 05/30/19 04:00 Room Air 05/30/19 04:00 78 20 127/73 (91) 96 05/30/19 00:00 81 20 133/68 (89) 95 05/30/19 00:00 Room Air 05/29/19 23:57 80 05/29/19 23:01 Room Air 21 05/29/19 23:01 Room Air 21 Intake and Output 05/29/19 05/30/19 19:00 07:00 Intake Total 800 ml 475 ml Output Total 700 ml 300 ml Balance 100 ml 175 ml Intake Oral 800 ml 200 ml IV Total 275 ml Output Urine Total 700 ml 300 ml # Voids 1 # Bowel Movements 2 Microbiology Date/Time Source Procedure Growth Status 05/28/19 12:20 Blood Blood Culture - Preliminary NO GROWTH AFTER 24 HOURS Resulted 05/28/19 12:05 Blood Blood Culture - Preliminary NO GROWTH AFTER 24 HOURS Resulted 05/28/19 22:55 Nasal Nares - Final Complete 05/28/19 22:55 Nasal Nares - Final Complete 05/28/19 17:50 Nasal Nares MRSA Culture - Final Staphylococcus Aureus - Mrsa Complete 05/28/19 12:20 Nasopharynx Coronavirus COVID-19 PCR ([facility]) - Final Complete 05/28/19 16:55 Stool Clostridium difficile Toxin Assay - Final Complete 05/28/19 17:50 Rectum - Final NO CARBAPENEM-RESISTANT ENTEROBACTERI... Complete 05/28/19 17:50 Rectum VRE Culture - Final NO VANCOMYCIN RESISTANT ENTEROCOCCUS ... Complete Current Medications Medications (Trade) Dose Ordered Sig/Anthony Route PRN Reason Start Time Stop Time Status Last Admin Dose Admin Acetaminophen (Tylenol) 650 mg Q6HR PRN ORAL MILD PAIN/Temp >100.5 05/30/19 18:56 06/29/19 18:55 Albuterol Sulfate (Proventil MDI) 2 puff Q4H PRN INH Shortness of Breath 05/30/19 19:00 08/26/19 18:59 Amlodipine Besylate (Norvasc) 10 mg DAILY ORAL 05/31/19 09:00 06/28/19 08:59 Azithromycin 500 mg/Dextrose 275 ml @ 275 mls/hr Q24HRS IV 05/31/19 17:45 06/04/19 18:44 Carvedilol (Coreg) 25 mg EVERY 12 HOURS ORAL 05/30/19 21:00 06/27/19 20:59 05/30/19 21:43 Ceftriaxone Sodium 1 gm/ Dextrose 55 ml @ 110 mls/hr Q24H IVPB 05/30/19 21:00 06/04/19 20:59 Docusate Sodium (Colace) 100 mg THREE TIMES A DAY ORAL 05/31/19 09:00 06/28/19 12:59 Enoxaparin Sodium (Lovenox) 30 mg DAILY SUBQ 05/31/19 09:00 08/27/19 08:59 Epoetin Aftab (Epoetin Aftab-EPBX(NON ESRD)) 1,000 unit QWEEK SUBQ 06/04/19 21:00 09/02/19 20:59 Finasteride (Proscar) 5 mg DAILY ORAL 05/31/19 09:00 08/27/19 08:59 Folic Acid (Folate) 1 mg DAILY ORAL 05/31/19 09:00 06/28/19 08:59 Haloperidol Lactate (Haldol) 5 mg Q6H PRN IM Agitation 05/30/19 18:59 07/12/19 18:58 Hydralazine HCl (Apresoline) 10 mg Q8HR ORAL 05/30/19 22:00 08/27/19 08:59 05/30/19 21:44 Pantoprazole (Protonix) 40 mg EVERY 12 HOURS ORAL 05/30/19 21:00 06/28/19 20:59 05/30/19 21:44 Salmeterol Xinafoate/ Fluticasone (Advair 100/50 Diskus) 1 puffs BID INH 05/31/19 09:00 08/27/19 08:59 Sodium Citrate (Bicitra) 30 ml EVERY 6 HOURS ORAL 05/31/19 00:00 06/28/19 11:59 Trazodone HCl (Desyrel) 75 mg BEDTIME ORAL 05/30/19 21:00 06/29/19 20:59 05/30/19 21:44 Arturo Mckeon MD May 30, 2019 22:09
--- NOTE | 2019-05-31 | Progress Note ---
DATE: 05/30/2019 SUBJECTIVE: The patient continues to be easily agitated and refusing medications, uncooperative with the staff. Poor insight, yelling and abusive at times towards the staff, reluctant to be engaged. MENTAL STATUS EXAMINATION: Alert and oriented times self, place, did not know the date. Mood is irritable and angry. Affect is flat. Thought process is concrete. Thought content, no suicidal or homicidal ideation. Cognition is impaired. Insight and judgment is impaired. ASSESSMENT: 1. Major depressive disorder. 2. Dementia. PLAN: 1. We will increase the trazodone. 2. Haldol as needed. Guicho Pimentel M.D. DR: Shannon JOB#: [id number] CC:
[2019-05-31 00:15] VITALS: BP 129/81
[2019-05-31 04:00] VITALS: BP 127/64
[2019-05-31] MEDS: Sodium Citrate 30ml ORAL SCH ×3 (04:59→17:55)
[2019-05-31] MEDS: HydrALAZINE 10mg Tab ORAL SCH ×3 (04:59→21:00)
[2019-05-31 08:00] VITALS: BP 148/70
[2019-05-31] MEDS: Wixela 100/50 Inhaler - 60 dose INH SCH ×2 (09:00→20:00)
[2019-05-31] MEDS: Carvedilol 25mg Tab ORAL SCH ×2 (10:12→20:59)
[2019-05-31] MEDS: Docusate 100mg cap ORAL SCH ×3 (10:12→17:55)
[2019-05-31] MEDS: Enoxaparin 30mg Inj SUBQ SCH (10:14)
--- NOTE | 2019-05-31 10:20 | Nephrology Progress Note ---
Assessment/Plan Problem List: (1) CASSANDRA (acute kidney injury) (2) Anemia in chronic kidney disease (CKD) (3) HTN (hypertension) (4) Suspected COVID-19 virus infection Assessment Acute renal failure most likely superimposed on chronic kidney disease Suspected COVID-19 virus infection Possible Pneumonia, lymphopenia, elevated AST Cardiomegaly, possible CHF COPD Hypertension Anemia, most likely related to chronic kidney disease Plan Patient positive for COVID-19 test Patient refuses blood draw, since May 28 Patient refuses taking medication Per pulmonary and ID advice Adjust blood pressure medication Renal diet Anemia work-up 2D echocardiogram refused Kidney ultrasound refused Jules catheter Urine studies Per orders Subjective ROS Limited/Unobtainable: No Constitutional: Reports: other Objective Objective Last 24 Hour Vital Signs Date Time Temp Pulse Resp B/P (MAP) Pulse Ox O2 Delivery O2 Flow Rate FiO2 05/31/19 10:12 81 148/70 05/31/19 10:12 81 148/70 05/31/19 09:00 Room Air 21 05/31/19 09:00 Room Air 21 05/31/19 08:00 96.6 81 22 148/70 (96) 87 05/31/19 04:59 127/64 05/31/19 04:00 97.2 80 22 127/64 (85) 93 05/31/19 00:15 96.3 73 18 129/81 (97) 92 05/30/19 21:44 152/101 05/30/19 21:43 91 152/101 05/30/19 20:13 Room Air 05/30/19 20:00 97.6 91 20 152/101 (118) 93 05/30/19 16:00 78 20 127/ 96 05/30/19 16:00 78 05/30/19 16:00 Room Air 05/30/19 12:00 73 24 05/30/19 12:00 71 05/30/19 12:00 Room Air Intake and Output 05/30/19 05/31/19 19:00 07:00 Intake Total 415 ml Output Total 350 ml 800 ml Balance -350 ml -385 ml IV Total 55 ml Other 360 ml Output Urine Total 350 ml 800 ml Height (Feet): 6 Height (Inches): 1.00 Weight (Pounds): 205 General Appearance: no apparent distress Objective No change Mic Cole MD May 31, 2019 10:20
[2019-05-31 12:00] VITALS: BP 130/71
--- NOTE | 2019-05-31 12:41 | Infectious Diseases Prog Note ---
Assessment/Plan Assessment/Plan IMPRESSION: 1. COVID-19 disease. 2. MRSA carrier. 3. Chronic kidney disease likely end-stage renal disease. 4. COPD. 5. Hypertension. 6. Anemia. 7. Hypothyroidism. 8. Hyperlipidemia. 9. Major depression. RECOMMENDATIONS: Continue Zithromax and Rocephin. If the patient's symptoms become worse, we will start on hydroxychloroquine. Subjective ROS Limited/Unobtainable: Yes Allergies: Coded Allergies: No Known Allergies (Unverified , 05/28/19) Objective Vital Signs Last 24 Hour Vital Signs Date Time Temp Pulse Resp B/P (MAP) Pulse Ox O2 Delivery O2 Flow Rate FiO2 05/31/19 10:12 81 148/70 05/31/19 10:12 81 148/70 05/31/19 09:00 Room Air 21 05/31/19 09:00 Room Air 21 05/31/19 09:00 Room Air 05/31/19 08:00 96.6 81 22 148/70 (96) 87 05/31/19 04:59 127/64 05/31/19 04:00 97.2 80 22 127/64 (85) 93 05/31/19 00:15 96.3 73 18 129/81 (97) 92 05/30/19 21:44 152/101 05/30/19 21:43 91 152/101 05/30/19 20:13 Room Air 05/30/19 20:00 97.6 91 20 152/101 (118) 93 05/30/19 16:00 78 20 127/ 96 05/30/19 16:00 78 05/30/19 16:00 Room Air Height (Feet): 6 Height (Inches): 1.00 Weight (Pounds): 205 General Appearance: no acute distress HEENT: mucous membranes moist Respiratory/Chest: lungs clear Cardiovascular: normal rate Abdomen: soft, non tender Extremities: no edema Neurologic/Psychiatric: other - sleeping Microbiology Date/Time Source Procedure Growth Status 05/28/19 22:55 Nasal Nares - Final Complete 05/28/19 22:55 Nasal Nares - Final Complete 05/28/19 17:50 Nasal Nares MRSA Culture - Final Staphylococcus Aureus - Mrsa Complete 05/28/19 16:55 Stool Clostridium difficile Toxin Assay - Final Complete 05/28/19 17:50 Rectum - Final NO CARBAPENEM-RESISTANT ENTEROBACTERI... Complete 05/28/19 17:50 Rectum VRE Culture - Final NO VANCOMYCIN RESISTANT ENTEROCOCCUS ... Complete Current Medications Medications (Trade) Dose Ordered Sig/Anthony Route PRN Reason Start Time Stop Time Status Last Admin Dose Admin Acetaminophen (Tylenol) 650 mg Q6HR PRN ORAL MILD PAIN/Temp >100.5 05/30/19 18:56 06/29/19 18:55 05/31/19 11:42 Albuterol Sulfate (Proventil MDI) 2 puff Q4H PRN INH Shortness of Breath 05/30/19 19:00 08/26/19 18:59 Amlodipine Besylate (Norvasc) 10 mg DAILY ORAL 05/31/19 09:00 06/28/19 08:59 05/31/19 10:12 Azithromycin 500 mg/Dextrose 275 ml @ 275 mls/hr Q24HRS IV 05/31/19 17:45 06/04/19 18:44 Carvedilol (Coreg) 25 mg EVERY 12 HOURS ORAL 05/30/19 21:00 06/27/19 20:59 05/31/19 10:12 Ceftriaxone Sodium 1 gm/ Dextrose 55 ml @ 110 mls/hr Q24H IVPB 05/30/19 21:00 06/04/19 20:59 05/30/19 22:07 Docusate Sodium (Colace) 100 mg THREE TIMES A DAY ORAL 05/31/19 09:00 06/28/19 12:59 05/31/19 10:12 Enoxaparin Sodium (Lovenox) 30 mg DAILY SUBQ 05/31/19 09:00 08/27/19 08:59 05/31/19 10:14 Epoetin Aftab (Epoetin Aftab-EPBX(NON ESRD)) 1,000 unit QWEEK SUBQ 06/04/19 21:00 09/02/19 20:59 Finasteride (Proscar) 5 mg DAILY ORAL 05/31/19 09:00 08/27/19 08:59 05/31/19 10:13 Folic Acid (Folate) 1 mg DAILY ORAL 05/31/19 09:00 06/28/19 08:59 05/31/19 10:12 Haloperidol Lactate (Haldol) 5 mg Q6H PRN IM Agitation 05/30/19 18:59 07/12/19 18:58 Hydralazine HCl (Apresoline) 10 mg Q8HR ORAL 05/30/19 22:00 08/27/19 08:59 05/31/19 04:59 Pantoprazole (Protonix) 40 mg EVERY 12 HOURS ORAL 05/30/19 21:00 06/28/19 20:59 05/31/19 10:12 Salmeterol Xinafoate/ Fluticasone (Advair 100/50 Diskus) 1 puffs BID INH 05/31/19 09:00 08/27/19 08:59 Sodium Citrate (Bicitra) 30 ml EVERY 6 HOURS ORAL 05/31/19 00:00 06/28/19 11:59 Trazodone HCl (Desyrel) 75 mg BEDTIME ORAL 05/30/19 21:00 06/29/19 20:59 05/30/19 21:44 Vancomycin HCl (Vanco rx to dose) 1 ea DAILY PRN MISC Per rx protocol 05/31/19 11:15 06/30/19 11:14 Vancomycin/Sodium Chloride 275 ml @ 137.5 mls/ hr ONCE ONCE IVPB 05/31/19 13:00 05/31/19 14:59 Ted Leyva MD May 31, 2019 12:41
[2019-05-31] MEDS ORDERED: Vancomycin 1.5gm/NS Premix IVPB ONE (13:00)
[2019-05-31 13:52] LABS: HEMATOCRIT 21.5 % (42.0-52.0); HEMOGLOBIN 7.3 G/DL (14.2-18.0); MEAN CORPUSCULAR VOLUME 90 FL (80-99); PLATELET COUNT 281 K/UL (150-450); RED BLOOD COUNT 2.38 M/UL (4.70-6.10); RED CELL DISTRIBUTION WIDTH 13.1 % (11.6-14.8); WHITE BLOOD COUNT 10.9 K/UL (4.8-10.8)
[2019-05-31 15:12] LABS: ALANINE AMINOTRANSFERASE 29 U/L (12-78); ALBUMIN 2.1 G/DL (3.4-5.0); ALBUMIN/GLOBULIN RATIO 0.4 (1.0-2.7); ALKALINE PHOSPHATASE 64 U/L (46-116); ANION GAP 22 mmol/L (5-15); ASPARTATE AMINO TRANSFERASE 34 U/L (15-37); BILIRUBIN,TOTAL 0.2 MG/DL (0.2-1.0); BLOOD UREA NITROGEN 90 mg/dL (7-18); CALCIUM 7.9 MG/DL (8.5-10.1); CARBON DIOXIDE 11 MMOL/L (21-32); CHLORIDE 107 MMOL/L (98-107); CHOLESTEROL 181 MG/DL (< 200); CREATINE KINASE 37 U/L (26-308); CREATININE 9.3 MG/DL (0.55-1.30); FERRITIN 556 NG/ML (8-388); HDL CHOLESTEROL 31 MG/DL (40-60); LACTATE DEHYDROGENASE 289 U/L (81-234); PHOSPHORUS 8.3 MG/DL (2.5-4.9); POTASSIUM 4.2 MMOL/L (3.5-5.1); SODIUM 139 MMOL/L (136-145); TRIGLYCERIDES 231 MG/DL (30-150)
[2019-05-31 15:53] LABS: % IRON SATURATION 13 % (15-50); IRON 19 ug/dL (50-175); TOTAL IRON BINDING CAPACITY 142 ug/dL (250-450)
[2019-05-31 16:00] VITALS: BP 115/68
[2019-05-31] MEDS: Azithromycin 500 MG in D5W 275 ML IV SCH (17:53)
[2019-05-31 20:00] VITALS: BP 145/91
--- NOTE | 2019-05-31 20:52 | Pulmonology Progress Note ---
Assessment/Plan Assessment/Plan Pulmonary Progress Note HPI: Patient is a 68 year old man, prison resident, admitted c/o shortness of breath, cough, noted to have Covid 19 Pneumonia. Past Medical History: COPD, CKD, Hypertension, Anemia Stable Pulmonary Status Allergies: No Known Allergies Stable Pulmonary Status Physical Exam Vital Signs Noted WDWN, no distress HEENT: NCAT,moist mm Chest: Occasional rhonchi Heart: HS1, HS2, RRR Abdomen: SNTND, no masses Extremities: Well perfused, no edema [employer]: No focal signs, no seizures, responsive to commands. Impression: Suspected COVID-19 virus infection Possible Pneumonia Cardiomegaly Lymphopenia Elevated AST COPD Chronic Kidney Disease Hypertension Worsening anemia Plan: Antibiotics per ID O2 PRN [employer] Medications 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 Monitor cultures/viral studies PPX Laboratory Tests Noted: Test 05/28/19 12:20 White Blood Count 4.6 K/UL (4.8-10.8) L Red Blood Count 2.85 M/UL (4.70-6.10) L Hemoglobin 8.7 G/DL (14.2-18.0) L Hematocrit 26.3 % (42.0-52.0) L Mean Corpuscular Volume 93 FL (80-99) Mean Corpuscular Hemoglobin 30.5 PG (27.0-31.0) Mean Corpuscular Hemoglobin Concent 33.0 G/DL (32.0-36.0) Red Cell Distribution Width 14.0 % (11.6-14.8) Platelet Count 251 K/UL (150-450) Mean Platelet Volume 6.3 FL (6.5-10.1) L Neutrophils (%) (Auto) 76.5 % (45.0-75.0) H Lymphocytes (%) (Auto) 15.7 % (20.0-45.0) L Monocytes (%) (Auto) 6.8 % (1.0-10.0) Eosinophils (%) (Auto) 0.3 % (0.0-3.0) Basophils (%) (Auto) 0.7 % (0.0-2.0) Sodium Level 137 MMOL/L (136-145) Potassium Level 4.7 MMOL/L (3.5-5.1) Chloride Level 104 MMOL/L (98-107) Carbon Dioxide Level 12 MMOL/L (21-32) L Anion Gap 21 mmol/L (5-15) H Blood Urea Nitrogen 75 mg/dL (7-18) H Creatinine 8.1 MG/DL (0.55-1.30) H Estimated Glomerular Filtration Rate 6.7 mL/min (>60) Glucose Level 145 MG/DL (74-106) H Lactic Acid Level 0.50 mmol/L (0.4-2.0) Calcium Level 8.9 MG/DL (8.5-10.1) Total Bilirubin 0.2 MG/DL (0.2-1.0) Aspartate Amino Transferase (AST) 58 U/L (15-37) H Alanine Aminotransferase (ALT) 43 U/L (12-78) Alkaline Phosphatase 98 U/L (46-116) Total Creatine Kinase 89 U/L (26-308) Creatine Kinase MB 0.8 NG/ML (0.0-3.6) Creatine Kinase MB Relative Index 0.8 Troponin I 0.000 ng/mL (0.000-0.056) Total Protein 8.3 G/DL (6.4-8.2) H Albumin 2.7 G/DL (3.4-5.0) L Globulin 5.6 g/dL Albumin/Globulin Ratio 0.5 (1.0-2.7) L CXR: Hypoventilatory exam, interstitial changes, cardiomegaly, no change Subjective ROS Limited/Unobtainable: No Allergies: Coded Allergies: No Known Allergies (Unverified , 05/28/19) Objective Last 24 Hour Vital Signs Date Time Temp Pulse Resp B/P (MAP) Pulse Ox O2 Delivery O2 Flow Rate FiO2 05/31/19 20:31 Room Air 21 05/31/19 20:31 Room Air 21 05/31/19 17:22 Room Air 05/31/19 16:00 99.3 75 21 115/68 (84) 95 05/31/19 13:14 130/71 05/31/19 12:12 99.3 05/31/19 12:00 101.6 78 130/71 (90) 05/31/19 10:12 81 148/70 05/31/19 10:12 81 148/70 05/31/19 09:00 Room Air 21 05/31/19 09:00 Room Air 21 05/31/19 09:00 Room Air 05/31/19 08:00 96.6 81 22 148/70 (96) 87 05/31/19 04:59 127/64 05/31/19 04:00 97.2 80 22 127/64 (85) 93 05/31/19 00:15 96.3 73 18 129/81 (97) 92 05/30/19 21:44 152/101 05/30/19 21:43 91 152/101 Intake and Output 05/30/19 05/31/19 19:00 07:00 Intake Total 415 ml Output Total 350 ml 800 ml Balance -350 ml -385 ml IV Total 55 ml Other 360 ml Output Urine Total 350 ml 800 ml Microbiology Date/Time Source Procedure Growth Status 05/28/19 22:55 Nasal Nares - Final Complete 05/28/19 22:55 Nasal Nares - Final Complete Laboratory Tests 05/31/19 13:40: White Blood Count 10.9H, Red Blood Count 2.38L, Hemoglobin 7.3L, Hematocrit 21.5L, Mean Corpuscular Volume 90, Mean Corpuscular Hemoglobin 30.8, Mean Corpuscular Hemoglobin Concent 34.1, Red Cell Distribution Width 13.1, Platelet Count 281, Mean Platelet Volume 6.5, Neutrophils (%) (Auto) , Lymphocytes (%) ( Auto) , Monocytes (%) (Auto) , Eosinophils (%) (Auto) , Basophils (%) (Auto) , Differential Total Cells Counted 100, Neutrophils % (Manual) 82H, Lymphocytes % (Manual) 12L, Monocytes % (Manual) 6, Eosinophils % (Manual) 0, Basophils % ( Manual) 0, Band Neutrophils 0, Platelet Estimate Adequate, Platelet Morphology Normal, Hypochromasia 3+, Anisocytosis 1+, Reticulocyte Count 1.1, D-Dimer 1.94H , Sodium Level 139, Potassium Level 4.2, Chloride Level 107, Carbon Dioxide Level 11L, Anion Gap 22H, Blood Urea Nitrogen 90H, Creatinine 9.3H, Estimat Glomerular Filtration Rate 5.7, Glucose Level 197H, Hemoglobin A1c 5.5, Uric Acid 9.4H, Calcium Level 7.9L, Phosphorus Level 8.3H, Magnesium Level 1.8, Iron Level 19L, Total Iron Binding Capacity 142L, Percent Iron Saturation 13L, Unsaturated Iron Binding 123, Ferritin 556H, Total Bilirubin 0.2, Aspartate Amino Transf (AST/SGOT) 34, Alanine Aminotransferase (ALT/SGPT) 29, Alkaline Phosphatase 64, Lactate Dehydrogenase 289H, Total Creatine Kinase 37, Troponin I 0.000, C-Reactive Protein, Quantitative 21.5H, Pro-B-Type Natriuretic Peptide 3510H, Total Protein 7.7, Albumin 2.1L, Globulin 5.6, Albumin/Globulin Ratio 0.4L, Triglycerides Level 231H, Cholesterol Level 181, LDL Cholesterol 100, HDL Cholesterol 31L, Cholesterol/HDL Ratio 5.8H, Vitamin B12 Level 637, Folate 79.5H , Thyroid Stimulating Hormone (TSH) 2.089 Current Medications Medications (Trade) Dose Ordered Sig/Anthony Route PRN Reason Start Time Stop Time Status Last Admin Dose Admin Acetaminophen (Tylenol) 650 mg Q6HR PRN ORAL MILD PAIN/Temp >100.5 05/30/19 18:56 06/29/19 18:55 05/31/19 11:42 Albuterol Sulfate (Proventil MDI) 2 puff Q4H PRN INH Shortness of Breath 05/30/19 19:00 08/26/19 18:59 Amlodipine Besylate (Norvasc) 10 mg DAILY ORAL 05/31/19 09:00 06/28/19 08:59 05/31/19 10:12 Azithromycin 500 mg/Dextrose 275 ml @ 275 mls/hr Q24HRS IV 05/31/19 17:45 06/04/19 18:44 05/31/19 17:53 Carvedilol (Coreg) 25 mg EVERY 12 HOURS ORAL 05/30/19 21:00 06/27/19 20:59 05/31/19 10:12 Ceftriaxone Sodium 1 gm/ Dextrose 55 ml @ 110 mls/hr Q24H IVPB 05/30/19 21:00 06/04/19 20:59 05/30/19 22:07 Docusate Sodium (Colace) 100 mg THREE TIMES A DAY ORAL 05/31/19 09:00 06/28/19 12:59 05/31/19 13:13 Enoxaparin Sodium (Lovenox) 30 mg DAILY SUBQ 05/31/19 09:00 08/27/19 08:59 05/31/19 10:14 Epoetin Aftab (Epoetin Aftab-EPBX(NON ESRD)) 1,000 unit QWEEK SUBQ 06/04/19 21:00 09/02/19 20:59 Finasteride (Proscar) 5 mg DAILY ORAL 05/31/19 09:00 08/27/19 08:59 05/31/19 10:13 Folic Acid (Folate) 1 mg DAILY ORAL 05/31/19 09:00 06/28/19 08:59 05/31/19 10:12 Haloperidol Lactate (Haldol) 5 mg Q6H PRN IM Agitation 05/30/19 18:59 07/12/19 18:58 Hydralazine HCl (Apresoline) 10 mg Q8HR ORAL 05/30/19 22:00 08/27/19 08:59 05/31/19 13:14 Pantoprazole (Protonix) 40 mg EVERY 12 HOURS ORAL 05/30/19 21:00 06/28/19 20:59 05/31/19 10:12 Salmeterol Xinafoate/ Fluticasone (Advair 100/50 Diskus) 1 puffs BID INH 05/31/19 09:00 08/27/19 08:59 Sodium Citrate (Bicitra) 30 ml EVERY 6 HOURS ORAL 05/31/19 00:00 06/28/19 11:59 05/31/19 12:00 Trazodone HCl (Desyrel) 75 mg BEDTIME ORAL 05/30/19 21:00 06/29/19 20:59 05/30/19 21:44 Vancomycin HCl (Vanco rx to dose) 1 ea DAILY PRN MISC Per rx protocol 05/31/19 11:15 06/30/19 11:14 Arturo Mckeon MD May 31, 2019 20:52
[2019-05-31] MEDS: cefTRIAXone 1 GM in D5W 55 ML IVPB SCH (20:59)
[2019-05-31] MEDS: TraZODone HCl 25 mg tablet ORAL SCH (21:00)
--- NOTE | 2019-05-31 21:58 | General Progress Note ---
Assessment/Plan Problem List: (1) Anemia ICD Codes: D64.9 - Anemia, unspecified SNOMED: 982114443 (2) Renal failure ICD Codes: N19 - Unspecified kidney failure SNOMED: 15768022 (3) Suspected COVID-19 virus infection ICD Codes: R68.89 - Other general symptoms and signs SNOMED: 277393594 (4) HTN (hypertension) ICD Codes: I10 - Essential (primary) hypertension SNOMED: 70836046 (5) CASSANDRA (acute kidney injury) ICD Codes: N17.9 - Acute kidney failure, unspecified SNOMED: 9661490, 81114014 (6) Anemia in chronic kidney disease (CKD) ICD Codes: N18.9 - Chronic kidney disease, unspecified; D63.1 - Anemia in chronic kidney disease SNOMED: 745391368 (7) Suspected COVID-19 virus infection ICD Codes: R68.89 - Other general symptoms and signs SNOMED: 474364104 Status: progressing Assessment/Plan: worsening renal failure on top of cri worsening anemia of chronic renal insuff consulted dr ramos pna resp insuff Subjective ROS Limited/Unobtainable: Yes Allergies: Coded Allergies: No Known Allergies (Unverified , 05/28/19) Objective Last 24 Hour Vital Signs Date Time Temp Pulse Resp B/P (MAP) Pulse Ox O2 Delivery O2 Flow Rate FiO2 05/31/19 21:41 Room Air 05/31/19 21:00 147/74 05/31/19 20:59 78 147/74 05/31/19 20:31 Room Air 21 05/31/19 20:31 Room Air 21 05/31/19 20:00 99.0 88 22 145/91 (109) 93 05/31/19 17:22 Room Air 05/31/19 16:00 99.3 75 21 115/68 (84) 95 05/31/19 13:14 130/71 05/31/19 12:12 99.3 05/31/19 12:00 101.6 78 130/71 (90) 05/31/19 10:12 81 148/70 05/31/19 10:12 81 148/70 05/31/19 09:00 Room Air 21 05/31/19 09:00 Room Air 21 05/31/19 09:00 Room Air 4/20/20 08:00 96.6 81 22 148/70 (96) 87 05/31/19 04:59 127/64 05/31/19 04:00 97.2 80 22 127/64 (85) 93 05/31/19 00:15 96.3 73 18 129/81 (97) 92 Intake and Output 05/30/19 05/31/19 19:00 07:00 Intake Total 415 ml Output Total 350 ml 800 ml Balance -350 ml -385 ml IV Total 55 ml Other 360 ml Output Urine Total 350 ml 800 ml Laboratory Tests 05/31/19 13:40: White Blood Count 10.9H, Red Blood Count 2.38L, Hemoglobin 7.3L, Hematocrit 21.5L, Mean Corpuscular Volume 90, Mean Corpuscular Hemoglobin 30.8, Mean Corpuscular Hemoglobin Concent 34.1, Red Cell Distribution Width 13.1, Platelet Count 281, Mean Platelet Volume 6.5, Neutrophils (%) (Auto) , Lymphocytes (%) ( Auto) , Monocytes (%) (Auto) , Eosinophils (%) (Auto) , Basophils (%) (Auto) , Differential Total Cells Counted 100, Neutrophils % (Manual) 82H, Lymphocytes % (Manual) 12L, Monocytes % (Manual) 6, Eosinophils % (Manual) 0, Basophils % ( Manual) 0, Band Neutrophils 0, Platelet Estimate Adequate, Platelet Morphology Normal, Hypochromasia 3+, Anisocytosis 1+, Reticulocyte Count 1.1, D-Dimer 1.94H , Sodium Level 139, Potassium Level 4.2, Chloride Level 107, Carbon Dioxide Level 11L, Anion Gap 22H, Blood Urea Nitrogen 90H, Creatinine 9.3H, Estimat Glomerular Filtration Rate 5.7, Glucose Level 197H, Hemoglobin A1c 5.5, Uric Acid 9.4H, Calcium Level 7.9L, Phosphorus Level 8.3H, Magnesium Level 1.8, Iron Level 19L, Total Iron Binding Capacity 142L, Percent Iron Saturation 13L, Unsaturated Iron Binding 123, Ferritin 556H, Total Bilirubin 0.2, Aspartate Amino Transf (AST/SGOT) 34, Alanine Aminotransferase (ALT/SGPT) 29, Alkaline Phosphatase 64, Lactate Dehydrogenase 289H, Total Creatine Kinase 37, Troponin I 0.000, C-Reactive Protein, Quantitative 21.5H, Pro-B-Type Natriuretic Peptide 3510H, Total Protein 7.7, Albumin 2.1L, Globulin 5.6, Albumin/Globulin Ratio 0.4L, Triglycerides Level 231H, Cholesterol Level 181, LDL Cholesterol 100, HDL Cholesterol 31L, Cholesterol/HDL Ratio 5.8H, Vitamin B12 Level 637, Folate 79.5H , Thyroid Stimulating Hormone (TSH) 2.089 Height (Feet): 6 Height (Inches): 1.00 Weight (Pounds): 205 Karishma Mulligan MD May 31, 2019 21:58
[2019-06-01] VITALS (7 sets, daily range): BP systolic 131–151; BP diastolic 70–80
--- NOTE | 2019-06-01 04:30 | Progress Note ---
DATE: 05/28/2019 HISTORY OF PRESENT ILLNESS: The patient is in bed. No acute distress noted. Decreased anxiety. More compliant. Less irritable. Still forgetful and has cognitive impairment. MENTAL STATUS EXAMINATION: The patient is oriented x2. Mood is irritable. Affect is flat. Thought process is concrete. Thought content, no suicidal or homicidal ideation. Cognition is impaired. Insight and judgment impaired. ASSESSMENT: 1. Major depressive disorder. 2. Cognitive impairment. PLAN: 1. Trazodone 75 mg h.s. 2. Continue to follow and adjust the medications. Guicho Pimentel M.D. DR: Lauryn JOB#: [id number] CC:
[2019-06-01] MEDS: HydrALAZINE 10mg Tab ORAL SCH ×4 (05:41→22:00)
[2019-06-01] MEDS: Sodium Citrate 30ml ORAL SCH ×4 (05:41→18:00)
--- NOTE | 2019-06-01 06:27 | Consultation ---
History of Present Illness General Chief Complaint: Dyspnea/Respdistress Present Illness Allergies: Coded Allergies: No Known Allergies (Unverified , 05/28/19) Medication History Scheduled Amlodipine Besylate (Norvasc), 10 MG ORAL DAILY, (Reported) Carvedilol* (Carvedilol*), 25 MG ORAL EVERY 12 HOURS, (Reported) Epoetin Aftab (Procrit), 1,000 UNIT SUBQ ONCE A WEEK, (Reported) Ferrous Sulfate* (Ferrous Sulfate*), 325 MG ORAL BID, (Reported) Finasteride* (Proscar*), 5 MG ORAL DAILY, (Reported) Folic Acid* (Folic Acid*), 1 MG ORAL DAILY, (Reported) Furosemide* (Lasix*), 60 MG ORAL DAILY, (Reported) Haloperidol* (Haldol*), 0.5 MG ORAL TID, (Reported) Hydralazine Hcl* (Hydralazine Hcl*), 10 MG ORAL BID, (Reported) Trazodone Hcl* (Desyrel*), 25 MG ORAL BEDTIME, (Reported) Scheduled PRN Magnesium Hydroxide* (Milk Of Magnesia*), 30 ML ORAL HS PRN for Constipation, ( Reported) Miscellaneous Medications Fluticasone Propion/Salmeterol (Fluticasone-Salmeterol 100-50), 1 EACH IH, ( Reported) Gemfibrozil (Gemfibrozil*), 600 MG ORAL, (Reported) Patient History Healthcare decision maker Joseph Simmons(Guardian) Resuscitation status Full Code Advanced Directive on File Physical Exam Last 24 Hour Vital Signs Date Time Temp Pulse Resp B/P (MAP) Pulse Ox O2 Delivery O2 Flow Rate FiO2 06/01/19 05:41 136/78 06/01/19 04:54 97.9 81 22 131/72 (91) 92 06/01/19 01:10 98.2 87 20 140/74 (96) 94 06/01/19 00:00 98.2 78 20 147/74 (98) 94 05/31/19 21:41 Room Air 05/31/19 21:00 147/74 05/31/19 20:59 78 147/74 05/31/19 20:31 Room Air 21 05/31/19 20:31 Room Air 21 05/31/19 20:00 99.0 88 22 145/91 (109) 93 05/31/19 17:22 Room Air 05/31/19 16:00 99.3 75 21 115/68 (84) 95 05/31/19 13:14 130/71 05/31/19 12:12 99.3 05/31/19 12:00 101.6 78 130/71 (90) 05/31/19 10:12 81 148/70 05/31/19 10:12 81 148/70 05/31/19 09:00 Room Air 21 05/31/19 09:00 Room Air 21 05/31/19 09:00 Room Air 05/31/19 08:00 96.6 81 22 148/70 (96) 87 Intake and Output 05/31/19 06/01/19 19:00 07:00 Intake Total 1150 ml Output Total 600 ml Balance 550 ml Intake Oral 600 ml IV Total 550 ml Output Urine Total 600 ml # Bowel Movements 1 Laboratory Tests Test 05/31/19 13:40 White Blood Count 10.9 K/UL (4.8-10.8) H Red Blood Count 2.38 M/UL (4.70-6.10) L Hemoglobin 7.3 G/DL (14.2-18.0) L Hematocrit 21.5 % (42.0-52.0) L Mean Corpuscular Volume 90 FL (80-99) Mean Corpuscular Hemoglobin 30.8 PG (27.0-31.0) Mean Corpuscular Hemoglobin Concent 34.1 G/DL (32.0-36.0) Red Cell Distribution Width 13.1 % (11.6-14.8) Platelet Count 281 K/UL (150-450) Mean Platelet Volume 6.5 FL (6.5-10.1) Neutrophils (%) (Auto) % (45.0-75.0) Lymphocytes (%) (Auto) % (20.0-45.0) Monocytes (%) (Auto) % (1.0-10.0) Eosinophils (%) (Auto) % (0.0-3.0) Basophils (%) (Auto) % (0.0-2.0) Differential Total Cells Counted 100 Neutrophils % (Manual) 82 % (45-75) H Lymphocytes % (Manual) 12 % (20-45) L Monocytes % (Manual) 6 % (1-10) Eosinophils % (Manual) 0 % (0-3) Basophils % (Manual) 0 % (0-2) Band Neutrophils 0 % (0-8) Platelet Estimate Adequate Platelet Morphology Normal Hypochromasia 3+ Anisocytosis 1+ Reticulocyte Count 1.1 % (0.5-2.0) D-Dimer 1.94 mg/L FEU (0.00-0.49) H Sodium Level 139 MMOL/L (136-145) Potassium Level 4.2 MMOL/L (3.5-5.1) Chloride Level 107 MMOL/L (98-107) Carbon Dioxide Level 11 MMOL/L (21-32) L Anion Gap 22 mmol/L (5-15) H Blood Urea Nitrogen 90 mg/dL (7-18) H Creatinine 9.3 MG/DL (0.55-1.30) H Estimat Glomerular Filtration Rate 5.7 mL/min (>60) Glucose Level 197 MG/DL (74-106) H Hemoglobin A1c 5.5 % (4.3-6.0) Uric Acid 9.4 MG/DL (2.6-7.2) H Calcium Level 7.9 MG/DL (8.5-10.1) L Phosphorus Level 8.3 MG/DL (2.5-4.9) H Magnesium Level 1.8 MG/DL (1.8-2.4) Iron Level 19 ug/dL (50-175) L Total Iron Binding Capacity 142 ug/dL (250-450) L Percent Iron Saturation 13 % (15-50) L Unsaturated Iron Binding 123 ug/dL (112-346) Ferritin 556 NG/ML (8-388) H Total Bilirubin 0.2 MG/DL (0.2-1.0) Aspartate Amino Transf (AST/SGOT) 34 U/L (15-37) Alanine Aminotransferase (ALT/SGPT) 29 U/L (12-78) Alkaline Phosphatase 64 U/L (46-116) Lactate Dehydrogenase 289 U/L (81-234) H Total Creatine Kinase 37 U/L (26-308) Troponin I 0.000 ng/mL (0.000-0.056) C-Reactive Protein, Quantitative 21.5 mg/dL (0.00-0.90) H Pro-B-Type Natriuretic Peptide 3510 pg/mL (0-125) H Total Protein 7.7 G/DL (6.4-8.2) Albumin 2.1 G/DL (3.4-5.0) L Globulin 5.6 g/dL Albumin/Globulin Ratio 0.4 (1.0-2.7) L Triglycerides Level 231 MG/DL (30-150) H Cholesterol Level 181 MG/DL (< 200) LDL Cholesterol 100 mg/dL (<100) HDL Cholesterol 31 MG/DL (40-60) L Cholesterol/HDL Ratio 5.8 (3.3-4.4) H Vitamin B12 Level 637 PG/ML (193-986) Folate 79.5 NG/ML (8.6-58.9) H Thyroid Stimulating Hormone (TSH) 2.089 uiU/mL (0.358-3.740) Height (Feet): 6 Height (Inches): 1.00 Weight (Pounds): 205 Medications Current Medications Medications (Trade) Dose Ordered Sig/Anthony Route PRN Reason Start Time Stop Time Status Last Admin Dose Admin Acetaminophen (Tylenol) 650 mg Q6HR PRN ORAL MILD PAIN/Temp >100.5 05/30/19 18:56 06/29/19 18:55 05/31/19 11:42 Albuterol Sulfate (Proventil MDI) 2 puff Q4H PRN INH Shortness of Breath 05/30/19 19:00 08/26/19 18:59 Amlodipine Besylate (Norvasc) 10 mg DAILY ORAL 05/31/19 09:00 06/28/19 08:59 05/31/19 10:12 Azithromycin 500 mg/Dextrose 275 ml @ 275 mls/hr Q24HRS IV 05/31/19 17:45 06/04/19 18:44 05/31/19 17:53 Carvedilol (Coreg) 25 mg EVERY 12 HOURS ORAL 05/30/19 21:00 06/27/19 20:59 05/31/19 20:59 Ceftriaxone Sodium 1 gm/ Dextrose 55 ml @ 110 mls/hr Q24H IVPB 05/30/19 21:00 06/04/19 20:59 05/31/19 20:59 Docusate Sodium (Colace) 100 mg THREE TIMES A DAY ORAL 05/31/19 09:00 06/28/19 12:59 05/31/19 13:13 Enoxaparin Sodium (Lovenox) 30 mg DAILY SUBQ 05/31/19 09:00 08/27/19 08:59 05/31/19 10:14 Epoetin Aftab (Epoetin Aftab-EPBX(NON ESRD)) 1,000 unit QWEEK SUBQ 06/04/19 21:00 09/02/19 20:59 Finasteride (Proscar) 5 mg DAILY ORAL 05/31/19 09:00 08/27/19 08:59 05/31/19 10:13 Folic Acid (Folate) 1 mg DAILY ORAL 05/31/19 09:00 06/28/19 08:59 05/31/19 10:12 Haloperidol Lactate (Haldol) 5 mg Q6H PRN IM Agitation 05/30/19 18:59 07/12/19 18:58 Hydralazine HCl (Apresoline) 10 mg Q8HR ORAL 05/30/19 22:00 08/27/19 08:59 06/01/19 05:41 Pantoprazole (Protonix) 40 mg EVERY 12 HOURS ORAL 05/30/19 21:00 06/28/19 20:59 05/31/19 21:00 Salmeterol Xinafoate/ Fluticasone (Advair 100/50 Diskus) 1 puffs BID INH 05/31/19 09:00 08/27/19 08:59 Sodium Citrate (Bicitra) 30 ml EVERY 6 HOURS ORAL 05/31/19 00:00 06/28/19 11:59 06/01/19 05:41 Trazodone HCl (Desyrel) 75 mg BEDTIME ORAL 05/30/19 21:00 06/29/19 20:59 05/31/19 21:00 Vancomycin HCl (Vanco rx to dose) 1 ea DAILY PRN MISC Per rx protocol 05/31/19 11:15 06/30/19 11:14 Assessment/Plan Assessment/Plan: Hematology Consultation REQ : Karishma Carmona RFC: Anemia, ongoing DOS: 06/01/2019 ID [id number] old male, This patient is brought in by EMS from a residential facility. The patient presents during the COVID-19 pandemic. The residential facility that he presents from has many positive cases of COVID-19. He presents with fever, cough and shortness of breath. There are no other complaints. Noted to have covid19 and heme was consulted for evaluation, peripheral smear is noted, abx noted, on lovenox as well Allergies: No Known Allergies (Unverified , 05/28/19) COVID-19 Screening Contact w/high risk pt: Yes Recent Travel to affected area: No Experienced COVID-19 symptoms?: Yes COVID-19 symptoms experienced: Fever (T>100.4F or >38C), Shortness of Breath, Cough Patient History Past Medical History: DM, HTN, CAD, COPD, psych hx - schizophrenia, renal disease, other - HCV, HLP Social History: Denies: smoking, alcohol use, drug use Reviewed Nursing Documentation: PMH: Agreed; PSxH: Agreed Nursing Documentation-PMH Past Medical History: No History, Except For Hx COPD: Yes Review of Systems All Other Systems: negative except mentioned in HPI Physical Exam Sp02 EP Interpretation: reviewed, normal General Appearance: no apparent distress, alert, GCS 15, non-toxic Head: normocephalic, atraumatic Eyes: bilateral eye normal inspection, bilateral eye PERRL ENT: hearing grossly normal, normal pharynx, no angioedema, normal voice Neck: full range of motion, supple/symm/no masses Respiratory: normal breath sounds, no respiratory distress Cardiovascular: regular rate, rhythm, no edema Gastrointestinal: normal inspection, soft, non-distended Rectal: deferred Musculoskeletal: normal range of motion, non-tender Neurologic: alert, motor strength/tone normal, sensory intact, responsive, speech normal Psychiatric: mood/affect normal, no suicidal/homicidal ideation Skin: Decubitus/Ulcer - See RN skin exam. Labs: noted Imaging: reviewed Assessment and Recs: # Anemia of chronic disease, likely related ot underlying kidney disease --> hgb trend 9-->8-->7.3 --> transfuse as needed, hgb goal >7 --> no evidence of hemolysis --> peripheral smear has been reviewed --> epogen started # Leukocytosis likely related to suspected COVID-19 virus infection --> on abx and plaquenil --> trend smear as needed --> initially 4-->11 # Lymphopenia --> likely related to covid19 # Possible Pneumonia # Cardiomegaly # Transaminitis with Elevated AST # COPD # Chronic Kidney Disease --> per renal hd # Hypertension Appreciate consultation and dw Rn Greg Cabral MD Jun 01, 2019 06:27
[2019-06-01] MEDS: Carvedilol 25mg Tab ORAL SCH ×2 (09:00→21:03)
[2019-06-01] MEDS: Docusate 100mg cap ORAL SCH ×3 (09:00→18:00)
[2019-06-01] MEDS: Enoxaparin 30mg Inj SUBQ SCH (09:00)
[2019-06-01] MEDS: Wixela 100/50 Inhaler - 60 dose INH SCH ×2 (09:30→18:00)
--- NOTE | 2019-06-01 10:11 | Nephrology Progress Note ---
Assessment/Plan Problem List: (1) CASSANDRA (acute kidney injury) (2) Anemia in chronic kidney disease (CKD) (3) HTN (hypertension) (4) Suspected COVID-19 virus infection Assessment Acute renal failure most likely superimposed on chronic kidney disease Suspected COVID-19 virus infection Possible Pneumonia, lymphopenia, elevated AST Cardiomegaly, possible CHF COPD Hypertension Anemia, most likely related to chronic kidney disease Plan Patient positive for COVID-19 test Patient refuses blood draw, Blood results from May 30 noted Patient refuses taking medication at times I believe patient need dialysis treatment He however needs to competency assessment if can make decisions or not I will communicate with Dr. Mulligan Per pulmonary and ID advice Adjust blood pressure medication Renal diet Anemia work-up 2D echocardiogram refused Kidney ultrasound refused Jules catheter Urine studies Per orders Subjective ROS Limited/Unobtainable: No Constitutional: Reports: malaise, weakness Objective Objective Last 24 Hour Vital Signs Date Time Temp Pulse Resp B/P (MAP) Pulse Ox O2 Delivery O2 Flow Rate FiO2 06/01/19 08:00 99.2 84 24 142/73 (96) 100 06/01/19 05:41 136/78 06/01/19 04:54 97.9 81 22 131/72 (91) 92 06/01/19 01:10 98.2 87 20 140/74 (96) 94 06/01/19 00:00 98.2 78 20 147/74 (98) 94 05/31/19 21:41 Room Air 05/31/19 21:00 147/74 05/31/19 20:59 78 147/74 05/31/19 20:31 Room Air 21 05/31/19 20:31 Room Air 21 05/31/19 20:00 99.0 88 22 145/91 (109) 93 05/31/19 17:22 Room Air 05/31/19 16:00 99.3 75 21 115/68 (84) 95 05/31/19 13:14 130/71 05/31/19 12:12 99.3 05/31/19 12:00 101.6 78 130/71 (90) 05/31/19 10:12 81 148/70 05/31/19 10:12 81 148/70 Intake and Output 05/31/19 06/01/19 19:00 07:00 Intake Total 1150 ml Output Total 600 ml Balance 550 ml Intake Oral 600 ml IV Total 550 ml Output Urine Total 600 ml # Bowel Movements 1 Current Medications Medications (Trade) Dose Ordered Sig/Anthony Route PRN Reason Start Time Stop Time Status Last Admin Dose Admin Acetaminophen (Tylenol) 650 mg Q6HR PRN ORAL MILD PAIN/Temp >100.5 05/30/19 18:56 06/29/19 18:55 05/31/19 11:42 Albuterol Sulfate (Proventil MDI) 2 puff Q4H PRN INH Shortness of Breath 05/30/19 19:00 08/26/19 18:59 Amlodipine Besylate (Norvasc) 10 mg DAILY ORAL 05/31/19 09:00 06/28/19 08:59 05/31/19 10:12 Azithromycin 500 mg/Dextrose 275 ml @ 275 mls/hr Q24HRS IV 05/31/19 17:45 06/04/19 18:44 05/31/19 17:53 Carvedilol (Coreg) 25 mg EVERY 12 HOURS ORAL 05/30/19 21:00 06/27/19 20:59 05/31/19 20:59 Ceftriaxone Sodium 1 gm/ Dextrose 55 ml @ 110 mls/hr Q24H IVPB 05/30/19 21:00 06/04/19 20:59 05/31/19 20:59 Docusate Sodium (Colace) 100 mg THREE TIMES A DAY ORAL 05/31/19 09:00 06/28/19 12:59 05/31/19 13:13 Enoxaparin Sodium (Lovenox) 30 mg DAILY SUBQ 05/31/19 09:00 08/27/19 08:59 05/31/19 10:14 Epoetin Aftab (Epoetin Aftab-EPBX(NON ESRD)) 1,000 unit QWEEK SUBQ 06/04/19 21:00 09/02/19 20:59 Finasteride (Proscar) 5 mg DAILY ORAL 05/31/19 09:00 08/27/19 08:59 05/31/19 10:13 Haloperidol Lactate (Haldol) 5 mg Q6H PRN IM Agitation 05/30/19 18:59 07/12/19 18:58 Hydralazine HCl (Apresoline) 10 mg Q8HR ORAL 05/30/19 22:00 08/27/19 08:59 06/01/19 05:41 Pantoprazole (Protonix) 40 mg EVERY 12 HOURS ORAL 05/30/19 21:00 06/28/19 20:59 05/31/19 21:00 Salmeterol Xinafoate/ Fluticasone (Advair 100/50 Diskus) 1 puffs BID INH 05/31/19 09:00 08/27/19 08:59 Sevelamer Carbonate (Renvela) 1,600 mg THREE TIMES A DAY ORAL 06/01/19 09:00 08/30/19 08:59 Sodium Citrate (Bicitra) 30 ml EVERY 6 HOURS ORAL 05/31/19 00:00 06/28/19 11:59 06/01/19 05:41 Trazodone HCl (Desyrel) 75 mg BEDTIME ORAL 05/30/19 21:00 06/29/19 20:59 05/31/19 21:00 Vancomycin HCl (Vanco rx to dose) 1 ea DAILY PRN MISC Per rx protocol 05/31/19 11:15 06/30/19 11:14 Laboratory Tests 05/31/19 13:40: White Blood Count 10.9H, Red Blood Count 2.38L, Hemoglobin 7.3L, Hematocrit 21.5L, Mean Corpuscular Volume 90, Mean Corpuscular Hemoglobin 30.8, Mean Corpuscular Hemoglobin Concent 34.1, Red Cell Distribution Width 13.1, Platelet Count 281, Mean Platelet Volume 6.5, Neutrophils (%) (Auto) , Lymphocytes (%) ( Auto) , Monocytes (%) (Auto) , Eosinophils (%) (Auto) , Basophils (%) (Auto) , Differential Total Cells Counted 100, Neutrophils % (Manual) 82H, Lymphocytes % (Manual) 12L, Monocytes % (Manual) 6, Eosinophils % (Manual) 0, Basophils % ( Manual) 0, Band Neutrophils 0, Platelet Estimate Adequate, Platelet Morphology Normal, Hypochromasia 3+, Anisocytosis 1+, Reticulocyte Count 1.1, D-Dimer 1.94H , Sodium Level 139, Potassium Level 4.2, Chloride Level 107, Carbon Dioxide Level 11L, Anion Gap 22H, Blood Urea Nitrogen 90H, Creatinine 9.3H, Estimat Glomerular Filtration Rate 5.7, Glucose Level 197H, Hemoglobin A1c 5.5, Uric Acid 9.4H, Calcium Level 7.9L, Phosphorus Level 8.3H, Magnesium Level 1.8, Iron Level 19L, Total Iron Binding Capacity 142L, Percent Iron Saturation 13L, Unsaturated Iron Binding 123, Ferritin 556H, Total Bilirubin 0.2, Aspartate Amino Transf (AST/SGOT) 34, Alanine Aminotransferase (ALT/SGPT) 29, Alkaline Phosphatase 64, Lactate Dehydrogenase 289H, Total Creatine Kinase 37, Troponin I 0.000, C-Reactive Protein, Quantitative 21.5H, Pro-B-Type Natriuretic Peptide 3510H, Total Protein 7.7, Albumin 2.1L, Globulin 5.6, Albumin/Globulin Ratio 0.4L, Triglycerides Level 231H, Cholesterol Level 181, LDL Cholesterol 100, HDL Cholesterol 31L, Cholesterol/HDL Ratio 5.8H, Vitamin B12 Level 637, Folate 79.5H , Thyroid Stimulating Hormone (TSH) 2.089 Height (Feet): 6 Height (Inches): 1.00 Weight (Pounds): 205 General Appearance: no apparent distress, lethargic, confused Respiratory/Chest: decreased breath sounds Abdomen: distended Objective No change Mic Cole MD Jun 01, 2019 10:11
--- NOTE | 2019-06-01 12:25 | Infectious Diseases Prog Note ---
Assessment/Plan Assessment/Plan IMPRESSION: 1. COVID-19 disease. 2. MRSA carrier. 3. Chronic kidney disease likely end-stage renal disease. 4. COPD. 5. Hypertension. 6. Anemia. 7. Hypothyroidism. 8. Hyperlipidemia. 9. Major depression. RECOMMENDATIONS: Continue Zithromax and Rocephin. If the patient's symptoms become worse, we will start on hydroxychloroquine. Subjective ROS Limited/Unobtainable: Yes Constitutional: Denies: fever Respiratory: Reports: no symptoms Psychiatric: Reports: other - refuses labs Allergies: Coded Allergies: No Known Allergies (Unverified , 05/28/19) Objective Vital Signs Last 24 Hour Vital Signs Date Time Temp Pulse Resp B/P (MAP) Pulse Ox O2 Delivery O2 Flow Rate FiO2 06/01/19 09:00 Nasal Cannula 2.0 06/01/19 08:00 99.2 84 24 142/73 (96) 100 06/01/19 05:41 136/78 06/01/19 04:54 97.9 81 22 131/72 (91) 92 06/01/19 01:10 98.2 87 20 140/74 (96) 94 06/01/19 00:00 98.2 78 20 147/74 (98) 94 05/31/19 21:41 Room Air 05/31/19 21:00 147/74 05/31/19 20:59 78 147/74 05/31/19 20:31 Room Air 21 05/31/19 20:31 Room Air 21 05/31/19 20:00 99.0 88 22 145/91 (109) 93 05/31/19 17:22 Room Air 05/31/19 16:00 99.3 75 21 115/68 (84) 95 05/31/19 13:14 130/71 Height (Feet): 6 Height (Inches): 1.00 Weight (Pounds): 205 General Appearance: no acute distress HEENT: mucous membranes moist Respiratory/Chest: lungs clear Cardiovascular: normal rate Abdomen: soft, non tender Neurologic/Psychiatric: alert, responsive Laboratory Tests Test 05/31/19 13:40 White Blood Count 10.9 K/UL (4.8-10.8) H Red Blood Count 2.38 M/UL (4.70-6.10) L Hemoglobin 7.3 G/DL (14.2-18.0) L Hematocrit 21.5 % (42.0-52.0) L Mean Corpuscular Volume 90 FL (80-99) Mean Corpuscular Hemoglobin 30.8 PG (27.0-31.0) Mean Corpuscular Hemoglobin Concent 34.1 G/DL (32.0-36.0) Red Cell Distribution Width 13.1 % (11.6-14.8) Platelet Count 281 K/UL (150-450) Mean Platelet Volume 6.5 FL (6.5-10.1) Neutrophils (%) (Auto) % (45.0-75.0) Lymphocytes (%) (Auto) % (20.0-45.0) Monocytes (%) (Auto) % (1.0-10.0) Eosinophils (%) (Auto) % (0.0-3.0) Basophils (%) (Auto) % (0.0-2.0) Differential Total Cells Counted 100 Neutrophils % (Manual) 82 % (45-75) H Lymphocytes % (Manual) 12 % (20-45) L Monocytes % (Manual) 6 % (1-10) Eosinophils % (Manual) 0 % (0-3) Basophils % (Manual) 0 % (0-2) Band Neutrophils 0 % (0-8) Platelet Estimate Adequate Platelet Morphology Normal Hypochromasia 3+ Anisocytosis 1+ Reticulocyte Count 1.1 % (0.5-2.0) D-Dimer 1.94 mg/L FEU (0.00-0.49) H Sodium Level 139 MMOL/L (136-145) Potassium Level 4.2 MMOL/L (3.5-5.1) Chloride Level 107 MMOL/L (98-107) Carbon Dioxide Level 11 MMOL/L (21-32) L Anion Gap 22 mmol/L (5-15) H Blood Urea Nitrogen 90 mg/dL (7-18) H Creatinine 9.3 MG/DL (0.55-1.30) H Estimat Glomerular Filtration Rate 5.7 mL/min (>60) Glucose Level 197 MG/DL (74-106) H Hemoglobin A1c 5.5 % (4.3-6.0) Uric Acid 9.4 MG/DL (2.6-7.2) H Calcium Level 7.9 MG/DL (8.5-10.1) L Phosphorus Level 8.3 MG/DL (2.5-4.9) H Magnesium Level 1.8 MG/DL (1.8-2.4) Iron Level 19 ug/dL (50-175) L Total Iron Binding Capacity 142 ug/dL (250-450) L Percent Iron Saturation 13 % (15-50) L Unsaturated Iron Binding 123 ug/dL (112-346) Ferritin 556 NG/ML (8-388) H Total Bilirubin 0.2 MG/DL (0.2-1.0) Aspartate Amino Transf (AST/SGOT) 34 U/L (15-37) Alanine Aminotransferase (ALT/SGPT) 29 U/L (12-78) Alkaline Phosphatase 64 U/L (46-116) Lactate Dehydrogenase 289 U/L (81-234) H Total Creatine Kinase 37 U/L (26-308) Troponin I 0.000 ng/mL (0.000-0.056) C-Reactive Protein, Quantitative 21.5 mg/dL (0.00-0.90) H Pro-B-Type Natriuretic Peptide 3510 pg/mL (0-125) H Total Protein 7.7 G/DL (6.4-8.2) Albumin 2.1 G/DL (3.4-5.0) L Globulin 5.6 g/dL Albumin/Globulin Ratio 0.4 (1.0-2.7) L Triglycerides Level 231 MG/DL (30-150) H Cholesterol Level 181 MG/DL (< 200) LDL Cholesterol 100 mg/dL (<100) HDL Cholesterol 31 MG/DL (40-60) L Cholesterol/HDL Ratio 5.8 (3.3-4.4) H Vitamin B12 Level 637 PG/ML (193-986) Folate 79.5 NG/ML (8.6-58.9) H Thyroid Stimulating Hormone (TSH) 2.089 uiU/mL (0.358-3.740) Current Medications Medications (Trade) Dose Ordered Sig/Anthony Route PRN Reason Start Time Stop Time Status Last Admin Dose Admin Acetaminophen (Tylenol) 650 mg Q6HR PRN ORAL MILD PAIN/Temp >100.5 05/30/19 18:56 06/29/19 18:55 05/31/19 11:42 Albuterol Sulfate (Proventil MDI) 2 puff Q4H PRN INH Shortness of Breath 05/30/19 19:00 08/26/19 18:59 Amlodipine Besylate (Norvasc) 10 mg DAILY ORAL 05/31/19 09:00 06/28/19 08:59 05/31/19 10:12 Azithromycin 500 mg/Dextrose 275 ml @ 275 mls/hr Q24HRS IV 05/31/19 17:45 06/04/19 18:44 05/31/19 17:53 Carvedilol (Coreg) 25 mg EVERY 12 HOURS ORAL 05/30/19 21:00 06/27/19 20:59 05/31/19 20:59 Ceftriaxone Sodium 1 gm/ Dextrose 55 ml @ 110 mls/hr Q24H IVPB 05/30/19 21:00 06/04/19 20:59 05/31/19 20:59 Docusate Sodium (Colace) 100 mg THREE TIMES A DAY ORAL 05/31/19 09:00 06/28/19 12:59 05/31/19 13:13 Enoxaparin Sodium (Lovenox) 30 mg DAILY SUBQ 05/31/19 09:00 08/27/19 08:59 05/31/19 10:14 Epoetin Aftab (Epoetin Aftab-EPBX(NON ESRD)) 1,000 unit QWEEK SUBQ 06/04/19 21:00 09/02/19 20:59 Finasteride (Proscar) 5 mg DAILY ORAL 05/31/19 09:00 08/27/19 08:59 05/31/19 10:13 Haloperidol Lactate (Haldol) 5 mg Q6H PRN IM Agitation 05/30/19 18:59 07/12/19 18:58 Hydralazine HCl (Apresoline) 10 mg Q8HR ORAL 05/30/19 22:00 08/27/19 08:59 06/01/19 05:41 Pantoprazole (Protonix) 40 mg EVERY 12 HOURS ORAL 05/30/19 21:00 06/28/19 20:59 05/31/19 21:00 Salmeterol Xinafoate/ Fluticasone (Advair 100/50 Diskus) 1 puffs BID INH 05/31/19 09:00 08/27/19 08:59 Sevelamer Carbonate (Renvela) 1,600 mg THREE TIMES A DAY ORAL 06/01/19 09:00 08/30/19 08:59 Sodium Citrate (Bicitra) 30 ml EVERY 6 HOURS ORAL 05/31/19 00:00 06/28/19 11:59 06/01/19 05:41 Trazodone HCl (Desyrel) 75 mg BEDTIME ORAL 05/30/19 21:00 06/29/19 20:59 05/31/19 21:00 Vancomycin HCl (Vanco rx to dose) 1 ea DAILY PRN MISC Per rx protocol 05/31/19 11:15 06/30/19 11:14 Ted Leyva MD Jun 01, 2019 12:25
--- NOTE | 2019-06-01 17:30 | Diagnostic Imaging Report ---
Indication: Shortness of breath Technique: One view of the chest Comparison: 05/30/2019 Findings: Bilateral infiltrates are unchanged allowing for differences in technique. The heart is borderline enlarged. Impression: Unchanged, over 2 days, findings as above including bilateral infiltrates.
--- NOTE | 2019-06-01 18:10 | Pulmonology Progress Note ---
Assessment/Plan Assessment/Plan Pulmonary Progress Note HPI: Patient is a 68 year old man, long-term resident, admitted c/o shortness of breath, cough, noted to have Covid 19 Pneumonia. 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 Medications 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 Monitor cultures/viral studies PPX Meeds criteria for Hemodialysis as Emergency and Life sustaining measure Psychiatry following Laboratory Tests Noted: Test 05/28/19 12:20 White Blood Count 4.6 K/UL (4.8-10.8) L Red Blood Count 2.85 M/UL (4.70-6.10) L Hemoglobin 8.7 G/DL (14.2-18.0) L Hematocrit 26.3 % (42.0-52.0) L Mean Corpuscular Volume 93 FL (80-99) Mean Corpuscular Hemoglobin 30.5 PG (27.0-31.0) Mean Corpuscular Hemoglobin Concent 33.0 G/DL (32.0-36.0) Red Cell Distribution Width 14.0 % (11.6-14.8) Platelet Count 251 K/UL (150-450) Mean Platelet Volume 6.3 FL (6.5-10.1) L Neutrophils (%) (Auto) 76.5 % (45.0-75.0) H Lymphocytes (%) (Auto) 15.7 % (20.0-45.0) L Monocytes (%) (Auto) 6.8 % (1.0-10.0) Eosinophils (%) (Auto) 0.3 % (0.0-3.0) Basophils (%) (Auto) 0.7 % (0.0-2.0) Sodium Level 137 MMOL/L (136-145) Potassium Level 4.7 MMOL/L (3.5-5.1) Chloride Level 104 MMOL/L (98-107) Carbon Dioxide Level 12 MMOL/L (21-32) L Anion Gap 21 mmol/L (5-15) H Blood Urea Nitrogen 75 mg/dL (7-18) H Creatinine 8.1 MG/DL (0.55-1.30) H Estimated Glomerular Filtration Rate 6.7 mL/min (>60) Glucose Level 145 MG/DL (74-106) H Lactic Acid Level 0.50 mmol/L (0.4-2.0) Calcium Level 8.9 MG/DL (8.5-10.1) Total Bilirubin 0.2 MG/DL (0.2-1.0) Aspartate Amino Transferase (AST) 58 U/L (15-37) H Alanine Aminotransferase (ALT) 43 U/L (12-78) Alkaline Phosphatase 98 U/L (46-116) Total Creatine Kinase 89 U/L (26-308) Creatine Kinase MB 0.8 NG/ML (0.0-3.6) Creatine Kinase MB Relative Index 0.8 Troponin I 0.000 ng/mL (0.000-0.056) Total Protein 8.3 G/DL (6.4-8.2) H Albumin 2.7 G/DL (3.4-5.0) L Globulin 5.6 g/dL Albumin/Globulin Ratio 0.5 (1.0-2.7) L CXR: Hypoventilatory exam, interstitial changes, cardiomegaly, no change Subjective ROS Limited/Unobtainable: No Constitutional: Denies: fever Respiratory: Reports: dry cough, shortness of breath Psychiatric: Reports: other - refuses labs Allergies: Coded Allergies: No Known Allergies (Unverified , 05/28/19) Objective Last 24 Hour Vital Signs Date Time Temp Pulse Resp B/P (MAP) Pulse Ox O2 Delivery O2 Flow Rate FiO2 06/01/19 16:00 97.7 77 22 139/70 (93) 91 06/01/19 15:10 133/67 06/01/19 12:57 100.4 06/01/19 12:00 101.7 80 26 141/75 (97) 94 06/01/19 09:30 Room Air 21 06/01/19 09:30 Room Air 21 06/01/19 09:00 Nasal Cannula 2.0 06/01/19 08:00 99.2 84 24 142/73 (96) 100 06/01/19 05:41 136/78 06/01/19 04:54 97.9 81 22 131/72 (91) 92 06/01/19 01:10 98.2 87 20 140/74 (96) 94 06/01/19 00:00 98.2 78 20 147/74 (98) 94 05/31/19 21:41 Room Air 05/31/19 21:00 147/74 05/31/19 20:59 78 147/74 05/31/19 20:31 Room Air 21 05/31/19 20:31 Room Air 21 05/31/19 20:00 99.0 88 22 145/91 (109) 93 Intake and Output 05/31/19 06/01/19 19:00 07:00 Intake Total 1150 ml Output Total 600 ml Balance 550 ml Intake Oral 600 ml IV Total 550 ml Output Urine Total 600 ml # Bowel Movements 1 General Appearance: no acute distress HEENT: mucous membranes moist Abdomen: soft, non tender Extremities: no edema Neurologic/Psychiatric: alert, responsive Laboratory Tests 06/01/19 17:27: Arterial Blood pH 7.321L, Arterial Blood Partial Pressure CO2 22.2*L, Arterial Blood Partial Pressure O2 111.9H, Arterial Blood HCO3 11.2*L, Arterial Blood Oxygen Saturation 97.4, Arterial Blood Base Excess -13.4*L, Kosta Test Positive Current Medications Medications (Trade) Dose Ordered Sig/Anthony Route PRN Reason Start Time Stop Time Status Last Admin Dose Admin Acetaminophen (Tylenol) 650 mg Q6HR PRN ORAL MILD PAIN/Temp >100.5 05/30/19 18:56 06/29/19 18:55 06/01/19 12:27 Albuterol Sulfate (Proventil MDI) 2 puff Q4HRT INH 06/01/19 19:00 08/30/19 18:59 Amlodipine Besylate (Norvasc) 10 mg DAILY ORAL 05/31/19 09:00 06/28/19 08:59 05/31/19 10:12 Azithromycin 500 mg/Dextrose 275 ml @ 275 mls/hr Q24HRS IV 05/31/19 17:45 06/04/19 18:44 05/31/19 17:53 Carvedilol (Coreg) 25 mg EVERY 12 HOURS ORAL 05/30/19 21:00 06/27/19 20:59 05/31/19 20:59 Ceftriaxone Sodium 1 gm/ Dextrose 55 ml @ 110 mls/hr Q24H IVPB 05/30/19 21:00 06/04/19 20:59 05/31/19 20:59 Docusate Sodium (Colace) 100 mg THREE TIMES A DAY ORAL 05/31/19 09:00 06/28/19 12:59 05/31/19 13:13 Enoxaparin Sodium (Lovenox) 30 mg DAILY SUBQ 05/31/19 09:00 08/27/19 08:59 05/31/19 10:14 Epoetin Aftab (Epoetin Aftab-EPBX(NON ESRD)) 1,000 unit QWEEK SUBQ 06/04/19 21:00 09/02/19 20:59 Finasteride (Proscar) 5 mg DAILY ORAL 05/31/19 09:00 08/27/19 08:59 05/31/19 10:13 Haloperidol Lactate (Haldol) 5 mg Q6H PRN IM Agitation 05/30/19 18:59 07/12/19 18:58 Hydralazine HCl (Apresoline) 10 mg Q8HR ORAL 05/30/19 22:00 08/27/19 08:59 06/01/19 15:10 Pantoprazole (Protonix) 40 mg EVERY 12 HOURS ORAL 05/30/19 21:00 06/28/19 20:59 05/31/19 21:00 Salmeterol Xinafoate/ Fluticasone (Advair 100/50 Diskus) 1 puffs BID INH 05/31/19 09:00 08/27/19 08:59 Sevelamer Carbonate (Renvela) 1,600 mg THREE TIMES A DAY ORAL 06/01/19 09:00 08/30/19 08:59 06/01/19 15:10 Sodium Citrate (Bicitra) 30 ml EVERY 6 HOURS ORAL 05/31/19 00:00 06/28/19 11:59 06/01/19 12:20 Trazodone HCl (Desyrel) 75 mg BEDTIME ORAL 05/30/19 21:00 06/29/19 20:59 05/31/19 21:00 Vancomycin HCl (Vanco rx to dose) 1 ea DAILY PRN MISC Per rx protocol 05/31/19 11:15 06/30/19 11:14 Arturo Mckeon MD Jun 01, 2019 18:10
[2019-06-01] MEDS: Azithromycin 500 MG in D5W 275 ML IV SCH (18:27)
[2019-06-01] MEDS: Albuterol 90mcg Inhaler 8gm INH SCH ×2 (19:00→23:00)
[2019-06-01] MEDS ORDERED: Hydroxychloroquine Fact Sheet MISC ONE (19:15)
[2019-06-01] MEDS: Depakote ER 500mg tab ORAL SCH (20:46)
[2019-06-01] MEDS: Hydroxychloroquine 400mg tab ORAL SCH (21:03)
[2019-06-01] MEDS: cefTRIAXone 1 GM in D5W 55 ML IVPB SCH (21:07)
--- NOTE | 2019-06-01 22:49 | General Progress Note ---
Assessment/Plan Problem List: (1) Anemia ICD Codes: D64.9 - Anemia, unspecified SNOMED: 060157765 (2) Renal failure ICD Codes: N19 - Unspecified kidney failure SNOMED: 33188866 (3) Suspected COVID-19 virus infection ICD Codes: R68.89 - Other general symptoms and signs SNOMED: 631300489 (4) HTN (hypertension) ICD Codes: I10 - Essential (primary) hypertension SNOMED: 05471942 (5) CASSANDRA (acute kidney injury) ICD Codes: N17.9 - Acute kidney failure, unspecified SNOMED: 0121769, 74442994 (6) Anemia in chronic kidney disease (CKD) ICD Codes: N18.9 - Chronic kidney disease, unspecified; D63.1 - Anemia in chronic kidney disease SNOMED: 911636082 (7) Suspected COVID-19 virus infection ICD Codes: R68.89 - Other general symptoms and signs SNOMED: 131777988 Status: progressing Assessment/Plan: worsening renal failure on top of cri needs emergent HD ,patient agreed to get diaylized to remove oxygen resp distriss on high oxygen worsening anemia of chronic renal insuff pna respiratory getting worse Subjective ROS Limited/Unobtainable: Yes Allergies: Coded Allergies: No Known Allergies (Unverified , 05/28/19) Objective Last 24 Hour Vital Signs Date Time Temp Pulse Resp B/P (MAP) Pulse Ox O2 Delivery O2 Flow Rate FiO2 06/01/19 21:03 83 151/78 06/01/19 20:58 Room Air 21 06/01/19 20:58 Room Air 21 06/01/19 16:00 97.7 77 22 139/70 (93) 91 06/01/19 15:10 133/67 06/01/19 12:57 100.4 06/01/19 12:00 101.7 80 26 141/75 (97) 94 06/01/19 09:30 Room Air 21 06/01/19 09:30 Room Air 21 06/01/19 09:00 Nasal Cannula 2.0 06/01/19 08:00 99.2 84 24 142/73 (96) 100 06/01/19 05:41 136/78 06/01/19 04:54 97.9 81 22 131/72 (91) 92 06/01/19 01:10 98.2 87 20 140/74 (96) 94 06/01/19 00:00 98.2 78 20 147/74 (98) 94 Intake and Output 05/31/19 06/01/19 19:00 07:00 Intake Total 1150 ml Output Total 600 ml Balance 550 ml Intake Oral 600 ml IV Total 550 ml Output Urine Total 600 ml # Bowel Movements 1 Laboratory Tests 06/01/19 17:27: Arterial Blood pH 7.321L, Arterial Blood Partial Pressure CO2 22.2*L, Arterial Blood Partial Pressure O2 111.9H, Arterial Blood HCO3 11.2*L, Arterial Blood Oxygen Saturation 97.4, Arterial Blood Base Excess -13.4*L, Kosta Test Positive Height (Feet): 6 Height (Inches): 1.00 Weight (Pounds): 205 General Appearance: lethargic, confused Respiratory/Chest: rhonchi - bilaterally Karishma Mulligan MD Jun 01, 2019 22:49
[2019-06-02] VITALS: BP 152/83
[2019-06-02] MEDS: Sodium Citrate 30ml ORAL SCH ×4 (00:17→18:26)
[2019-06-02] MEDS: Albuterol 90mcg Inhaler 8gm INH SCH ×6 (03:00→23:00)
--- NOTE | 2019-06-02 03:00 | Progress Note ---
DATE: 06/01/2019 SUBJECTIVE: The patient has been refusing care and medications. Upon evaluation today, the patient stated that he does not care. The patient did not know what dialysis was. When I explained to him that he is benefitting from hemodialysis and what is the purpose of that, he agreed to do hemodialysis. The patient is depressed, very irritable, angry. He was at some point yelling during the evaluation. He yelled back to his nurse and is difficult to redirect at times. The patient was able to understand the benefit of taking medications versus refusing them. I spoke to the patient from the nursing station [facility]. The patient was in the room and I was in the station and we talked on the phone. He agreed to hemodialysis. He was able to understand, process, communicate rationally about hemodialysis. He has some episodes of disorientation and impulsive behaviors. ASSESSMENT: The patient has capacity to accept dialysis, now he is agreeing. We will discontinue the trazodone that will also will renew the restraints. The patient will stop both trazodone. Guicho Pimentel M.D. DR: Shannon JOB#: [id number] CC: SIMI
[2019-06-02 04:00] VITALS: BP 152/79
[2019-06-02] MEDS: HydrALAZINE 10mg Tab ORAL SCH ×3 (05:53→21:11)
--- NOTE | 2019-06-02 06:11 | Hematology/Onc Progress Note ---
Assessment/Plan Assessment/Plan Assessment and Recs: # Anemia of chronic disease, likely related ot underlying kidney disease --> hgb trend 9-->8-->7.3 --> transfuse as needed, hgb goal >7 --> no evidence of hemolysis --> peripheral smear has been reviewed --> epogen started tid # Leukocytosis likely related to suspected COVID-19 virus infection --> on abx and plaquenil --> trend smear as needed --> initially 4-->11 # Lymphopenia --> likely related to covid19 # Possible Pneumonia # Cardiomegaly # Transaminitis with Elevated AST # COPD # Chronic Kidney Disease --> per renal hd # Hypertension Appreciate consultation and dw Rn Subjective Constitutional: Denies: no symptoms, chills, fever, malaise, weakness, other HEENT: Denies: no symptoms, eye pain, blurred vision, tearing, double vision, ear pain, ear discharge, nose pain, nose congestion, throat pain, throat swelling, mouth pain, mouth swelling, other Cardiovascular: Denies: no symptoms, chest pain, edema, irregular heart rate, lightheadedness, palpitations, syncope, other Respiratory: Denies: no symptoms, cough, shortness of breath, SOB with excertion, SOB at rest, sputum, wheezing, other Gastrointestinal/Abdominal: Denies: no symptoms, abdomen distended, abdominal pain, black stools, tarry stools, blood in stool, constipated, diarrhea, difficulty swallowing, nausea, poor appetite, poor fluid intake, rectal bleeding , vomiting, other Genitourinary: Denies: no symptoms, burning, discharge, frequency, flank pain, hematuria, incontinence, pain, urgency, other Neurologic/Psychiatric: Denies: no symptoms, anxiety, depressed, emotional problems, headache, numbness, paresthesia, pre-existing deficit, seizure, tingling, tremors, weakness, other Endocrine: Denies: no symptoms, excessive sweating, flushing, intolerance to cold, intolerance to heat, increased hunger, increased thirst, increased urine, unexplained weight gain, unexplained weight loss, other Hematologic/Lymphatic: Denies: no symptoms, anemia, easy bleeding, easy bruising, adenopathy, other Allergies: Coded Allergies: No Known Allergies (Unverified , 05/28/19) Subjective 06/01 extremely agitated, not allowing labs draws, no night sweats, cbc ordered Objective Objective Current Medications Medications (Trade) Dose Ordered Sig/Anthony Route PRN Reason Start Time Stop Time Status Last Admin Dose Admin Acetaminophen (Tylenol) 650 mg Q6HR PRN ORAL MILD PAIN/Temp >100.5 05/30/19 18:56 06/29/19 18:55 06/01/19 12:27 Albuterol Sulfate (Proventil MDI) 2 puff Q4HRT INH 06/01/19 19:00 08/30/19 18:59 Amlodipine Besylate (Norvasc) 10 mg DAILY ORAL 05/31/19 09:00 06/28/19 08:59 05/31/19 10:12 Azithromycin 500 mg/Dextrose 275 ml @ 275 mls/hr Q24HRS IV 05/31/19 17:45 06/04/19 18:44 06/01/19 18:27 Carvedilol (Coreg) 25 mg EVERY 12 HOURS ORAL 05/30/19 21:00 06/27/19 20:59 06/01/19 21:03 Ceftriaxone Sodium 1 gm/ Dextrose 55 ml @ 110 mls/hr Q24H IVPB 05/30/19 21:00 06/04/19 20:59 06/01/19 21:07 Divalproex Sodium (Depakote ER) 500 mg BEDTIME ORAL 06/01/19 21:00 07/01/19 20:59 06/01/19 20:46 Docusate Sodium (Colace) 100 mg THREE TIMES A DAY ORAL 05/31/19 09:00 06/28/19 12:59 05/31/19 13:13 Enoxaparin Sodium (Lovenox) 30 mg DAILY SUBQ 05/31/19 09:00 08/27/19 08:59 05/31/19 10:14 Epoetin Aftab (Epoetin Aftab-EPBX(NON ESRD)) 1,000 unit QWEEK SUBQ 06/04/19 21:00 09/02/19 20:59 Finasteride (Proscar) 5 mg DAILY ORAL 05/31/19 09:00 08/27/19 08:59 05/31/19 10:13 Haloperidol Lactate (Haldol) 5 mg Q6H PRN IM Agitation 05/30/19 18:59 07/12/19 18:58 Hydralazine HCl (Apresoline) 10 mg Q8HR ORAL 05/30/19 22:00 08/27/19 08:59 06/02/19 05:53 Hydroxychloroquine Sulfate (Plaquenil) 200 mg Q12HR ORAL 06/02/19 21:00 06/06/19 09:01 Hydroxychloroquine Sulfate (Plaquenil) 400 mg Q12HR ORAL 06/01/19 21:00 06/02/19 09:01 06/01/19 21:03 Pantoprazole (Protonix) 40 mg EVERY 12 HOURS ORAL 05/30/19 21:00 06/28/19 20:59 06/01/19 21:03 Salmeterol Xinafoate/ Fluticasone (Advair 100/50 Diskus) 1 puffs BID INH 05/31/19 09:00 08/27/19 08:59 Sevelamer Carbonate (Renvela) 1,600 mg THREE TIMES A DAY ORAL 06/01/19 09:00 08/30/19 08:59 06/01/19 15:10 Sodium Citrate (Bicitra) 30 ml EVERY 6 HOURS ORAL 05/31/19 00:00 06/28/19 11:59 06/02/19 05:53 Vancomycin HCl (Vanco rx to dose) 1 ea DAILY PRN MISC Per rx protocol 05/31/19 11:15 06/30/19 11:14 Last 24 Hour Vital Signs Date Time Temp Pulse Resp B/P (MAP) Pulse Ox O2 Delivery O2 Flow Rate FiO2 06/02/19 05:53 152/79 06/02/19 04:00 66 06/02/19 00:00 97.8 79 20 152/83 (106) 96 06/02/19 00:00 75 06/01/19 21:03 83 151/78 06/01/19 21:00 Nasal Cannula 2.0 06/01/19 20:58 Room Air 21 06/01/19 20:58 Room Air 21 06/01/19 20:00 98.8 89 23 151/80 (103) 95 06/01/19 16:00 97.7 77 22 139/70 (93) 91 06/01/19 15:10 133/67 06/01/19 12:57 100.4 06/01/19 12:00 101.7 80 26 141/75 (97) 94 06/01/19 09:30 Room Air 21 06/01/19 09:30 Room Air 21 06/01/19 09:00 Nasal Cannula 2.0 06/01/19 08:00 99.2 84 24 142/73 (96) 100 06/01/19 05:41 136/78 06/01/19 04:54 97.9 81 22 131/72 (91) 92 06/01/19 01:10 98.2 87 20 140/74 (96) 94 06/01/19 00:00 98.2 78 20 147/74 (98) 94 05/31/19 21:41 Room Air 05/31/19 21:00 147/74 05/31/19 20:59 78 147/74 05/31/19 20:31 Room Air 21 05/31/19 20:31 Room Air 21 05/31/19 20:00 99.0 88 22 145/91 (109) 93 05/31/19 17:22 Room Air 05/31/19 16:00 99.3 75 21 115/68 (84) 95 05/31/19 13:14 130/71 05/31/19 12:00 101.6 78 130/71 (90) 05/31/19 10:12 81 148/70 05/31/19 10:12 81 148/70 05/31/19 09:00 Room Air 21 05/31/19 09:00 Room Air 21 05/31/19 09:00 Room Air 05/31/19 08:00 96.6 81 22 148/70 (96) 87 Intake and Output 06/01/19 06/02/19 19:00 07:00 Intake Total 500 ml 55 ml Output Total 900 ml Balance -400 ml 55 ml Intake Oral 500 ml IV Total 55 ml Output Urine Total 900 ml # Bowel Movements 2 Labs Test 05/31/19 13:40 06/01/19 17:27 White Blood Count 10.9 K/UL (4.8-10.8) Red Blood Count 2.38 M/UL (4.70-6.10) Hemoglobin 7.3 G/DL (14.2-18.0) Hematocrit 21.5 % (42.0-52.0) Mean Corpuscular Volume 90 FL (80-99) Mean Corpuscular Hemoglobin 30.8 PG (27.0-31.0) Mean Corpuscular Hemoglobin Concent 34.1 G/DL (32.0-36.0) Red Cell Distribution Width 13.1 % (11.6-14.8) Platelet Count 281 K/UL (150-450) Mean Platelet Volume 6.5 FL (6.5-10.1) Neutrophils (%) (Auto) % (45.0-75.0) Lymphocytes (%) (Auto) % (20.0-45.0) Monocytes (%) (Auto) % (1.0-10.0) Eosinophils (%) (Auto) % (0.0-3.0) Basophils (%) (Auto) % (0.0-2.0) Differential Total Cells Counted 100 Neutrophils % (Manual) 82 % (45-75) Lymphocytes % (Manual) 12 % (20-45) Monocytes % (Manual) 6 % (1-10) Eosinophils % (Manual) 0 % (0-3) Basophils % (Manual) 0 % (0-2) Band Neutrophils 0 % (0-8) Platelet Estimate Adequate Platelet Morphology Normal Hypochromasia 3+ Anisocytosis 1+ Reticulocyte Count 1.1 % (0.5-2.0) D-Dimer 1.94 mg/L FEU (0.00-0.49) Sodium Level 139 MMOL/L (136-145) Potassium Level 4.2 MMOL/L (3.5-5.1) Chloride Level 107 MMOL/L (98-107) Carbon Dioxide Level 11 MMOL/L (21-32) Anion Gap 22 mmol/L (5-15) Blood Urea Nitrogen 90 mg/dL (7-18) Creatinine 9.3 MG/DL (0.55-1.30) Estimat Glomerular Filtration Rate 5.7 mL/min (>60) Glucose Level 197 MG/DL (74-106) Hemoglobin A1c 5.5 % (4.3-6.0) Uric Acid 9.4 MG/DL (2.6-7.2) Calcium Level 7.9 MG/DL (8.5-10.1) Phosphorus Level 8.3 MG/DL (2.5-4.9) Magnesium Level 1.8 MG/DL (1.8-2.4) Iron Level 19 ug/dL (50-175) Total Iron Binding Capacity 142 ug/dL (250-450) Percent Iron Saturation 13 % (15-50) Unsaturated Iron Binding 123 ug/dL (112-346) Ferritin 556 NG/ML (8-388) Total Bilirubin 0.2 MG/DL (0.2-1.0) Aspartate Amino Transf (AST/SGOT) 34 U/L (15-37) Alanine Aminotransferase (ALT/SGPT) 29 U/L (12-78) Alkaline Phosphatase 64 U/L (46-116) Lactate Dehydrogenase 289 U/L (81-234) Total Creatine Kinase 37 U/L (26-308) Troponin I 0.000 ng/mL (0.000-0.056) C-Reactive Protein, Quantitative 21.5 mg/dL (0.00-0.90) Pro-B-Type Natriuretic Peptide 3510 pg/mL (0-125) Total Protein 7.7 G/DL (6.4-8.2) Albumin 2.1 G/DL (3.4-5.0) Globulin 5.6 g/dL Albumin/Globulin Ratio 0.4 (1.0-2.7) Triglycerides Level 231 MG/DL (30-150) Cholesterol Level 181 MG/DL (< 200) LDL Cholesterol 100 mg/dL (<100) HDL Cholesterol 31 MG/DL (40-60) Cholesterol/HDL Ratio 5.8 (3.3-4.4) Vitamin B12 Level 637 PG/ML (193-986) Folate 79.5 NG/ML (8.6-58.9) Thyroid Stimulating Hormone (TSH) 2.089 uiU/mL (0.358-3.740) Arterial Blood pH 7.321 (7.350-7.450) Arterial Blood Partial Pressure CO2 22.2 mmHg (35.0-45.0) Arterial Blood Partial Pressure O2 111.9 mmHg (75.0-100.0) Arterial Blood HCO3 11.2 mmol/L (22.0-26.0) Arterial Blood Oxygen Saturation 97.4 % (95-100) Arterial Blood Base Excess -13.4 (-2-2) Kosta Test Positive Height (Feet): 6 Height (Inches): 1.00 Weight (Pounds): 205 Objective Sp02 EP Interpretation: reviewed, normal General Appearance: no apparent distress, alert, GCS 15, non-toxic Head: normocephalic, atraumatic Eyes: bilateral eye normal inspection, bilateral eye PERRL ENT: hearing grossly normal, normal pharynx, no angioedema, normal voice Neck: full range of motion, supple/symm/no masses Respiratory: normal breath sounds, no respiratory distress Cardiovascular: regular rate, rhythm, no edema Gastrointestinal: normal inspection, soft, non-distended Rectal: deferred Musculoskeletal: normal range of motion, non-tender Neurologic: alert, motor strength/tone normal, sensory intact, responsive, speech normal Psychiatric: mood/affect normal, no suicidal/homicidal ideation Skin: Decubitus/Ulcer - See RN skin exam. Greg Cabral MD Jun 02, 2019 06:11
[2019-06-02 08:00] VITALS: BP 139/80
[2019-06-02] MEDS: Enoxaparin 30mg Inj SUBQ SCH (09:00)
[2019-06-02] MEDS: Wixela 100/50 Inhaler - 60 dose INH SCH ×2 (10:08→18:27)
[2019-06-02] MEDS: Hydroxychloroquine 400mg tab ORAL SCH (10:09)
[2019-06-02] MEDS: Carvedilol 25mg Tab ORAL SCH ×2 (10:09→21:12)
[2019-06-02] MEDS: Haloperidol 5mg/ml Inj IM PRN ×2 (10:13→16:45)
[2019-06-02] MEDS: Docusate 100mg cap ORAL SCH ×3 (10:13→18:26)
[2019-06-02] MEDS ORDERED: Lidocaine 1% 10mg/ml/EPI 0.01mg/ml 30ml INJ SCH (10:23)
[2019-06-02 12:00] VITALS: BP 115/82
--- NOTE | 2019-06-02 12:08 | Consultation ---
History of Present Illness General Date patient seen: Jun 02, 2019 Reason for Hospitalization: Dyspnea/Respdistress Present Illness HPI This is a 68 year old male who [place] by EMS [place] [facility] [place]. The patient presents during the COVID-19 pandemic and the jail facility that he presents from has many positive cases of COVID-19. He presents with fever, cough and shortness of breath. There are no other complaints. Admitted for care and management. worsening with renal insufficiency. needs HD and surgery called to evaluate for access. patient seen , chart reviewed, patient examined. Allergies: Coded Allergies: No Known Allergies (Unverified , 05/28/19) COVID-19 Screening Contact w/high risk pt: Yes Recent Travel to affected area: No Experienced COVID-19 symptoms?: Yes COVID-19 symptoms experienced: Fever (T>100.4F or >38C), Shortness of Breath, Cough, Flu-Like Symptoms Medication History Scheduled Amlodipine Besylate (Norvasc), 10 MG ORAL DAILY, (Reported) Carvedilol* (Carvedilol*), 25 MG ORAL EVERY 12 HOURS, (Reported) Epoetin Aftab (Procrit), 1,000 UNIT SUBQ ONCE A WEEK, (Reported) Ferrous Sulfate* (Ferrous Sulfate*), 325 MG ORAL BID, (Reported) Finasteride* (Proscar*), 5 MG ORAL DAILY, (Reported) Folic Acid* (Folic Acid*), 1 MG ORAL DAILY, (Reported) Furosemide* (Lasix*), 60 MG ORAL DAILY, (Reported) Haloperidol* (Haldol*), 0.5 MG ORAL TID, (Reported) Hydralazine Hcl* (Hydralazine Hcl*), 10 MG ORAL BID, (Reported) Trazodone Hcl* (Desyrel*), 25 MG ORAL BEDTIME, (Reported) Scheduled PRN Magnesium Hydroxide* (Milk Of Magnesia*), 30 ML ORAL HS PRN for Constipation, ( Reported) Miscellaneous Medications Fluticasone Propion/Salmeterol (Fluticasone-Salmeterol 100-50), 1 EACH IH, ( Reported) Gemfibrozil (Gemfibrozil*), 600 MG ORAL, (Reported) Patient History History Provided By: Patient, Medical Record, PMD Healthcare decision maker Joseph Simmons(Guardian) Resuscitation status Full Code Advanced Directive on File Past Medical/Surgical History Past Medical/Surgical History: (1) Suspected COVID-19 virus infection (2) HTN (hypertension) (3) CASSANDRA (acute kidney injury) (4) Anemia in chronic kidney disease (CKD) (5) Anemia (6) Renal failure (7) Suspected COVID-19 virus infection Review of Systems Review of Symptoms General ROS: no weight loss or fever Psychological ROS: no depression or mood changes, no memory loss Ophthalmic ROS: no visual changes or eye irritation ENT ROS: no nasal congestion, hearing loss, dizziness Allergy and Immunology ROS: no allergic symptoms or urticaria Hematological and Lymphatic ROS: no swollen glands, unusual bleeding or bruising Endocrine ROS: no polyuria, polydipsia, weight changes, temperature intolerance Respiratory ROS: no cough, shortness of breath, or wheezing Cardiovascular ROS: no chest pain or dyspnea on exertion Gastrointestinal ROS: denies abdominal pain, bright red blood in stool. Musculoskeletal ROS: no myalgias or arthralgias Neurological ROS: no TIA or stroke symptoms Dermatological ROS: no new or changing skin lesions, rashes or pruritis Physical Exam Physical Exam General appearance: alert, cooperative, no distress, appears stated age Head: Normocephalic, without obvious abnormality, atraumatic Eyes: conjunctivae/corneas clear. PERRL, EOM's intact. Fundi benign Throat: Lips, mucosa, and tongue normal. Teeth and gums normal Neck: supple, symmetrical, trachea midline, no adenopathy, thyroid: not enlarged, symmetric, no tenderness/mass/nodules, no carotid bruit and no JVD Lungs: clear to auscultation bilaterally Heart: regular rate and rhythm, S1, S2 normal, no murmur, click, rub or gallop Abdomen: soft, non-tender. Bowel sounds normal. No masses, no organomegaly Extremities: extremities normal, atraumatic, no cyanosis or edema Pulses: 2+ and symmetric Skin: Skin color, texture, turgor normal. No rashes or lesions Neurologic: Grossly normal Last 24 Hour Vital Signs Date Time Temp Pulse Resp B/P (MAP) Pulse Ox O2 Delivery O2 Flow Rate FiO2 06/02/19 10:09 87 139/80 06/02/19 10:09 87 139/80 06/02/19 09:00 Nasal Cannula 2.0 06/02/19 08:00 97.3 87 24 139/80 (99) 96 06/02/19 07:48 108 06/02/19 05:53 152/79 06/02/19 04:00 66 06/02/19 04:00 97.5 83 22 152/79 (103) 96 06/02/19 00:00 97.8 79 20 152/83 (106) 96 06/02/19 00:00 75 06/01/19 21:03 83 151/78 06/01/19 21:00 Nasal Cannula 2.0 06/01/19 20:58 Room Air 21 06/01/19 20:58 Room Air 21 06/01/19 20:00 98.8 89 23 151/80 (103) 95 06/01/19 16:00 97.7 77 22 139/70 (93) 91 06/01/19 15:10 133/67 06/01/19 12:57 100.4 Intake and Output 06/01/19 06/02/19 19:00 07:00 Intake Total 500 ml 180 ml Output Total 900 ml 400 ml Balance -400 ml -220 ml Intake Oral 500 ml 125 ml IV Total 55 ml Output Urine Total 900 ml 400 ml # Bowel Movements 2 1 Laboratory Tests Test 06/01/19 17:27 06/02/19 08:22 Arterial Blood pH 7.321 (7.350-7.450) 7.311 (7.350-7.450) Arterial Blood Partial Pressure CO2 22.2 mmHg (35.0-45.0) *L 24.2 mmHg (35.0-45.0) *L Arterial Blood Partial Pressure O2 111.9 mmHg (75.0-100.0) H 38.8 mmHg (75.0-100.0) Arterial Blood HCO3 11.2 mmol/L (22.0-26.0) *L 11.9 mmol/L (22.0-26.0) *L Arterial Blood Oxygen Saturation 97.4 % (95-100) 73.0 % (95-100) *L Arterial Blood Base Excess -13.4 (-2-2) *L -12.9 (-2-2) *L Kosta Test Positive Positive Height (Feet): 6 Height (Inches): 1.00 Weight (Pounds): 207 Medications Current Medications Medications (Trade) Dose Ordered Sig/Anthony Route PRN Reason Start Time Stop Time Status Last Admin Dose Admin Acetaminophen (Tylenol) 650 mg Q6HR PRN ORAL MILD PAIN/Temp >100.5 05/30/19 18:56 06/29/19 18:55 06/01/19 12:27 Albuterol Sulfate (Proventil MDI) 2 puff Q4HRT INH 06/01/19 19:00 08/30/19 18:59 Amlodipine Besylate (Norvasc) 10 mg DAILY ORAL 05/31/19 09:00 06/28/19 08:59 06/02/19 10:09 Azithromycin 500 mg/Dextrose 275 ml @ 275 mls/hr Q24HRS IV 05/31/19 17:45 06/04/19 18:44 06/01/19 18:27 Carvedilol (Coreg) 25 mg EVERY 12 HOURS ORAL 05/30/19 21:00 06/27/19 20:59 06/02/19 10:09 Ceftriaxone Sodium 1 gm/ Dextrose 55 ml @ 110 mls/hr Q24H IVPB 05/30/19 21:00 06/04/19 20:59 06/01/19 21:07 Divalproex Sodium (Depakote ER) 500 mg BEDTIME ORAL 06/01/19 21:00 07/01/19 20:59 06/01/19 20:46 Docusate Sodium (Colace) 100 mg THREE TIMES A DAY ORAL 05/31/19 09:00 06/28/19 12:59 06/02/19 10:13 Enoxaparin Sodium (Lovenox) 30 mg DAILY SUBQ 05/31/19 09:00 08/27/19 08:59 05/31/19 10:14 Epoetin Aftab (Epoetin Aftab-EPBX(NON ESRD)) 1,000 unit QWEEK SUBQ 06/04/19 21:00 09/02/19 20:59 Finasteride (Proscar) 5 mg DAILY ORAL 05/31/19 09:00 08/27/19 08:59 06/02/19 10:09 Haloperidol Lactate (Haldol) 5 mg Q6H PRN IM Agitation 05/30/19 18:59 07/12/19 18:58 06/02/19 10:13 Hydralazine HCl (Apresoline) 10 mg Q8HR ORAL 05/30/19 22:00 08/27/19 08:59 06/02/19 05:53 Hydroxychloroquine Sulfate (Plaquenil) 200 mg Q12HR ORAL 06/02/19 21:00 06/06/19 09:01 Pantoprazole (Protonix) 40 mg EVERY 12 HOURS ORAL 05/30/19 21:00 06/28/19 20:59 06/02/19 10:08 Salmeterol Xinafoate/ Fluticasone (Advair 100/50 Diskus) 1 puffs BID INH 05/31/19 09:00 08/27/19 08:59 06/02/19 10:08 Sevelamer Carbonate (Renvela) 1,600 mg THREE TIMES A DAY ORAL 06/01/19 09:00 08/30/19 08:59 06/02/19 10:10 Sodium Citrate (Bicitra) 30 ml EVERY 6 HOURS ORAL 05/31/19 00:00 06/28/19 11:59 06/02/19 05:53 Vancomycin HCl (Vanco rx to dose) 1 ea DAILY PRN MISC Per rx protocol 05/31/19 11:15 06/30/19 11:14 Assessment/Plan Problem List: (1) Suspected COVID-19 virus infection ICD Codes: R68.89 - Other general symptoms and signs SNOMED: 004084981 (2) HTN (hypertension) ICD Codes: I10 - Essential (primary) hypertension SNOMED: 58645619 (3) CASSANDRA (acute kidney injury) Assessment & Plan: Needs urgent HD needs access patient okay and consented see note will follow with recs ICD Codes: N17.9 - Acute kidney failure, unspecified SNOMED: 3261960, 03263614 (4) Anemia in chronic kidney disease (CKD) ICD Codes: N18.9 - Chronic kidney disease, unspecified; D63.1 - Anemia in chronic kidney disease SNOMED: 725962533 (5) Anemia ICD Codes: D64.9 - Anemia, unspecified SNOMED: 344559939 (6) Renal failure ICD Codes: N19 - Unspecified kidney failure SNOMED: 29006458 (7) Suspected COVID-19 virus infection ICD Codes: R68.89 - Other general symptoms and signs SNOMED: 255941930 (8) COVID-19 Assessment & Plan: COVID + c diff negative febrile leukocytosis renal insufficiency see above cont resp care Rx as per ID ICD Codes: U07.1 - COVID-19 SNOMED: 514152749 Yaniv Mast Jun 02, 2019 12:08
--- NOTE | 2019-06-02 12:10 | Operative Note - PDOC ---
Operative Note Operative Note Date of Operation/Procedure: Jun 02, 2019 Pre-op Diagnosis: COVID + renal insufficiency Alena Procedure: right femoral temporary HD catheter insertion Post-op Diagnosis: same as pre-op Surgeon: dario mast md Anesthesia: local Specimen: none Complications: none Condition: stable Estimated Blood Loss: minimal Drains: none Implant(s) used?: No Indications for Procedure Please see consultation report this is a 68-year-old male COVID positive with renal insufficiency requiring hemodialysis consent obtained from patient. Line placed at bedside using all precautions. Description of Procedure Patient is comfortable at the bedside in supine position. He is on respiratory support and monitored at the bedside. He is desaturating but stable. Facemask with under percent O2. Right groin is prepped draped in sterile surgical fashion. Local anesthetic was infiltrated after anatomic landmarks were identified. With first stick the right femoral vein was cannulated and venous blood noted. Guidewire placed and the needle removed. Small skin incision was made around the guidewire and dilators were used. A temporary hemodialysis catheter 13 K[place]z was inserted over the guidewire and guidewire removed and discarded. Line was sutured in place. All 3 ports flushed and aspirated without complication. Venous blood noted. Good flow on the dialysis venous ports. Tertiary line port okay to use. Okay to begin dialysis discussed with dialysis team and nurse. All COVID precautions were taken during the placement of this port. Monitor closely to ensure functionality and removal when necessary Dario Mast Jun 02, 2019 12:10
--- NOTE | 2019-06-02 12:41 | Nephrology Progress Note ---
Assessment/Plan Problem List: (1) CASSANDRA (acute kidney injury) (2) Anemia in chronic kidney disease (CKD) (3) HTN (hypertension) (4) Suspected COVID-19 virus infection Assessment Acute renal failure most likely superimposed on chronic kidney disease Suspected COVID-19 virus infection Possible Pneumonia, lymphopenia, elevated AST Cardiomegaly, possible CHF COPD Hypertension Anemia, most likely related to chronic kidney disease Plan Positive for COVID 19 Patient refuses blood draw today again, Events of yesterday afternoon and evening noted and record reviewed. Patient condition deteriorated yesterday evening, he started desaturating, He was transferred to [facility], he was agreed to dialysis, A dialysis catheter is in already, and due to get started on dialysis shortly Blood results from May 30 noted Patient refuses taking medication at times May 31 : I believe patient need dialysis treatment He however needs to competency assessment if can make decisions or not I will communicate with Dr. Mulligan Previously: Per pulmonary and ID advice Adjust blood pressure medication Renal diet Anemia work-up 2D echocardiogram refused Kidney ultrasound refused Jules catheter Urine studies Per orders Subjective ROS Limited/Unobtainable: Yes Constitutional: Reports: malaise, weakness Objective Objective Last 24 Hour Vital Signs Date Time Temp Pulse Resp B/P (MAP) Pulse Ox O2 Delivery O2 Flow Rate FiO2 06/02/19 10:09 87 139/80 06/02/19 10:09 87 139/80 06/02/19 09:00 Nasal Cannula 2.0 06/02/19 08:00 97.3 87 24 139/80 (99) 96 06/02/19 07:48 108 06/02/19 05:53 152/79 06/02/19 04:00 66 06/02/19 04:00 97.5 83 22 152/79 (103) 96 06/02/19 00:00 97.8 79 20 152/83 (106) 96 06/02/19 00:00 75 06/01/19 21:03 83 151/78 06/01/19 21:00 Nasal Cannula 2.0 06/01/19 20:58 Room Air 21 06/01/19 20:58 Room Air 21 06/01/19 20:00 98.8 89 23 151/80 (103) 95 06/01/19 16:00 97.7 77 22 139/70 (93) 91 06/01/19 15:10 133/67 06/01/19 12:57 100.4 Intake and Output 06/01/19 06/02/19 19:00 07:00 Intake Total 500 ml 180 ml Output Total 900 ml 400 ml Balance -400 ml -220 ml Intake Oral 500 ml 125 ml IV Total 55 ml Output Urine Total 900 ml 400 ml # Bowel Movements 2 1 Current Medications Medications (Trade) Dose Ordered Sig/Anthony Route PRN Reason Start Time Stop Time Status Last Admin Dose Admin Acetaminophen (Tylenol) 650 mg Q6HR PRN ORAL MILD PAIN/Temp >100.5 05/30/19 18:56 06/29/19 18:55 06/01/19 12:27 Albuterol Sulfate (Proventil MDI) 2 puff Q4HRT INH 06/01/19 19:00 08/30/19 18:59 Amlodipine Besylate (Norvasc) 10 mg DAILY ORAL 05/31/19 09:00 06/28/19 08:59 06/02/19 10:09 Azithromycin 500 mg/Dextrose 275 ml @ 275 mls/hr Q24HRS IV 05/31/19 17:45 06/04/19 18:44 06/01/19 18:27 Carvedilol (Coreg) 25 mg EVERY 12 HOURS ORAL 05/30/19 21:00 06/27/19 20:59 06/02/19 10:09 Ceftriaxone Sodium 1 gm/ Dextrose 55 ml @ 110 mls/hr Q24H IVPB 05/30/19 21:00 06/04/19 20:59 06/01/19 21:07 Divalproex Sodium (Depakote ER) 500 mg BEDTIME ORAL 06/01/19 21:00 07/01/19 20:59 06/01/19 20:46 Docusate Sodium (Colace) 100 mg THREE TIMES A DAY ORAL 05/31/19 09:00 06/28/19 12:59 06/02/19 10:13 Enoxaparin Sodium (Lovenox) 30 mg DAILY SUBQ 05/31/19 09:00 08/27/19 08:59 05/31/19 10:14 Epoetin Aftab (Epoetin Aftab-EPBX(NON ESRD)) 1,000 unit QWEEK SUBQ 06/04/19 21:00 09/02/19 20:59 Finasteride (Proscar) 5 mg DAILY ORAL 05/31/19 09:00 08/27/19 08:59 06/02/19 10:09 Haloperidol Lactate (Haldol) 5 mg Q6H PRN IM Agitation 05/30/19 18:59 07/12/19 18:58 06/02/19 10:13 Hydralazine HCl (Apresoline) 10 mg Q8HR ORAL 05/30/19 22:00 08/27/19 08:59 06/02/19 05:53 Hydroxychloroquine Sulfate (Plaquenil) 200 mg Q12HR ORAL 06/02/19 21:00 06/06/19 09:01 Pantoprazole (Protonix) 40 mg EVERY 12 HOURS ORAL 05/30/19 21:00 06/28/19 20:59 06/02/19 10:08 Salmeterol Xinafoate/ Fluticasone (Advair 100/50 Diskus) 1 puffs BID INH 05/31/19 09:00 08/27/19 08:59 06/02/19 10:08 Sevelamer Carbonate (Renvela) 1,600 mg THREE TIMES A DAY ORAL 06/01/19 09:00 08/30/19 08:59 06/02/19 10:10 Sodium Citrate (Bicitra) 30 ml EVERY 6 HOURS ORAL 05/31/19 00:00 06/28/19 11:59 06/02/19 05:53 Vancomycin HCl (Vanco rx to dose) 1 ea DAILY PRN MISC Per rx protocol 05/31/19 11:15 06/30/19 11:14 Laboratory Tests 06/01/19 17:27: Arterial Blood pH 7.321L, Arterial Blood Partial Pressure CO2 22.2*L, Arterial Blood Partial Pressure O2 111.9H, Arterial Blood HCO3 11.2*L, Arterial Blood Oxygen Saturation 97.4, Arterial Blood Base Excess -13.4*L, Kosta Test Positive 06/02/19 08:22: Arterial Blood pH 7.311L, Arterial Blood Partial Pressure CO2 24.2*L, Arterial Blood Partial Pressure O2 38.8*L, Arterial Blood HCO3 11.9*L, Arterial Blood Oxygen Saturation 73.0*L, Arterial Blood Base Excess -12.9*L, Kosta Test Positive Height (Feet): 6 Height (Inches): 1.00 Weight (Pounds): 207 General Appearance: mild distress Cardiovascular: tachycardia Respiratory/Chest: decreased breath sounds Abdomen: distended Objective No change Mic Cole MD Jun 02, 2019 12:41
--- NOTE | 2019-06-02 13:06 | Infectious Diseases Prog Note ---
Assessment/Plan Assessment/Plan IMPRESSION: 1. COVID-19 pneumonia 2. MRSA carrier. 3. Chronic kidney disease likely end-stage renal disease. 4. COPD. 5. Hypertension. 6. Anemia. 7. Hypothyroidism. 8. Hyperlipidemia. 9. Major depression. RECOMMENDATIONS: Continue Zithromax, Rocephin & hydroxychloroquine. Will be started on HD Subjective ROS Limited/Unobtainable: Yes Constitutional: Reports: other - developed fever yesterday, today is afebrile Respiratory: Reports: shortness of breath, other - was put on oxygen mask Cardiovascular: Reports: other - HD line placed Allergies: Coded Allergies: No Known Allergies (Unverified , 05/28/19) Objective Vital Signs Last 24 Hour Vital Signs Date Time Temp Pulse Resp B/P (MAP) Pulse Ox O2 Delivery O2 Flow Rate FiO2 06/02/19 10:09 87 139/80 06/02/19 10:09 87 139/80 06/02/19 09:00 Nasal Cannula 2.0 06/02/19 08:00 97.3 87 24 139/80 (99) 96 06/02/19 07:48 108 06/02/19 05:53 152/79 06/02/19 04:00 66 06/02/19 04:00 97.5 83 22 152/79 (103) 96 06/02/19 00:00 97.8 79 20 152/83 (106) 96 06/02/19 00:00 75 06/01/19 21:03 83 151/78 06/01/19 21:00 Nasal Cannula 2.0 06/01/19 20:58 Room Air 21 06/01/19 20:58 Room Air 21 06/01/19 20:00 98.8 89 23 151/80 (103) 95 06/01/19 16:00 97.7 77 22 139/70 (93) 91 06/01/19 15:10 133/67 Height (Feet): 6 Height (Inches): 1.00 Weight (Pounds): 207 General Appearance: no acute distress HEENT: mucous membranes moist Respiratory/Chest: other - oxygen by rebreathing mask Cardiovascular: normal rate, other - R feomral HD line Abdomen: soft, non tender Extremities: other - mild edema Skin: no rash Neurologic/Psychiatric: other - sleeping Laboratory Tests Test 06/01/19 17:27 4/22/20 08:22 Arterial Blood pH 7.321 (7.350-7.450) 7.311 (7.350-7.450) Arterial Blood Partial Pressure CO2 22.2 mmHg (35.0-45.0) *L 24.2 mmHg (35.0-45.0) *L Arterial Blood Partial Pressure O2 111.9 mmHg (75.0-100.0) H 38.8 mmHg (75.0-100.0) Arterial Blood HCO3 11.2 mmol/L (22.0-26.0) *L 11.9 mmol/L (22.0-26.0) *L Arterial Blood Oxygen Saturation 97.4 % (95-100) 73.0 % (95-100) *L Arterial Blood Base Excess -13.4 (-2-2) *L -12.9 (-2-2) *L Kosta Test Positive Positive Current Medications Medications (Trade) Dose Ordered Sig/Anthony Route PRN Reason Start Time Stop Time Status Last Admin Dose Admin Acetaminophen (Tylenol) 650 mg Q6HR PRN ORAL MILD PAIN/Temp >100.5 05/30/19 18:56 06/29/19 18:55 06/01/19 12:27 Albuterol Sulfate (Proventil MDI) 2 puff Q4HRT INH 06/01/19 19:00 08/30/19 18:59 Amlodipine Besylate (Norvasc) 10 mg DAILY ORAL 05/31/19 09:00 06/28/19 08:59 06/02/19 10:09 Azithromycin 500 mg/Dextrose 275 ml @ 275 mls/hr Q24HRS IV 05/31/19 17:45 06/04/19 18:44 06/01/19 18:27 Carvedilol (Coreg) 25 mg EVERY 12 HOURS ORAL 05/30/19 21:00 06/27/19 20:59 06/02/19 10:09 Ceftriaxone Sodium 1 gm/ Dextrose 55 ml @ 110 mls/hr Q24H IVPB 05/30/19 21:00 06/04/19 20:59 06/01/19 21:07 Divalproex Sodium (Depakote ER) 500 mg BEDTIME ORAL 06/01/19 21:00 07/01/19 20:59 06/01/19 20:46 Docusate Sodium (Colace) 100 mg THREE TIMES A DAY ORAL 05/31/19 09:00 06/28/19 12:59 06/02/19 10:13 Enoxaparin Sodium (Lovenox) 30 mg DAILY SUBQ 05/31/19 09:00 08/27/19 08:59 05/31/19 10:14 Epoetin Aftab (Epoetin Aftab(ESRD on dialysis)) 10,000 unit SUBQ 06/02/19 21:00 08/31/19 20:59 Finasteride (Proscar) 5 mg DAILY ORAL 05/31/19 09:00 08/27/19 08:59 06/02/19 10:09 Haloperidol Lactate (Haldol) 5 mg Q6H PRN IM Agitation 05/30/19 18:59 07/12/19 18:58 06/02/19 10:13 Hydralazine HCl (Apresoline) 10 mg Q8HR ORAL 05/30/19 22:00 08/27/19 08:59 06/02/19 05:53 Hydroxychloroquine Sulfate (Plaquenil) 200 mg Q12HR ORAL 06/02/19 21:00 06/06/19 09:01 Pantoprazole (Protonix) 40 mg EVERY 12 HOURS ORAL 05/30/19 21:00 06/28/19 20:59 06/02/19 10:08 Salmeterol Xinafoate/ Fluticasone (Advair 100/50 Diskus) 1 puffs BID INH 05/31/19 09:00 08/27/19 08:59 06/02/19 10:08 Sevelamer Carbonate (Renvela) 1,600 mg THREE TIMES A DAY ORAL 06/01/19 09:00 08/30/19 08:59 06/02/19 10:10 Sodium Citrate (Bicitra) 30 ml EVERY 6 HOURS ORAL 05/31/19 00:00 06/28/19 11:59 06/02/19 05:53 Vancomycin HCl (Vanco rx to dose) 1 ea DAILY PRN MISC Per rx protocol 05/31/19 11:15 06/30/19 11:14 Ted Leyva MD Jun 02, 2019 13:06
[2019-06-02] MEDS ORDERED: NS 275ml ONE (13:16)
[2019-06-02 14:14] LABS: HEMATOCRIT 22.5 % (42.0-52.0); HEMOGLOBIN 7.7 G/DL (14.2-18.0); MEAN CORPUSCULAR VOLUME 89 FL (80-99); PLATELET COUNT 364 K/UL (150-450); RED BLOOD COUNT 2.52 M/UL (4.70-6.10); RED CELL DISTRIBUTION WIDTH 13.1 % (11.6-14.8); WHITE BLOOD COUNT 15.4 K/UL (4.8-10.8)
[2019-06-02 14:25] LABS: ALANINE AMINOTRANSFERASE 15 U/L (12-78); ALBUMIN 1.9 G/DL (3.4-5.0); ALBUMIN/GLOBULIN RATIO 0.3 (1.0-2.7); ALKALINE PHOSPHATASE 65 U/L (46-116); ANION GAP 20 mmol/L (5-15); ASPARTATE AMINO TRANSFERASE 27 U/L (15-37); BILIRUBIN,TOTAL 0.2 MG/DL (0.2-1.0); BLOOD UREA NITROGEN 100 mg/dL (7-18); CALCIUM 8.7 MG/DL (8.5-10.1); CARBON DIOXIDE 15 MMOL/L (21-32); CHLORIDE 105 MMOL/L (98-107); CREATININE 9.8 MG/DL (0.55-1.30); SODIUM 139 MMOL/L (136-145)
[2019-06-02 14:36] LABS: GAMMA GLUTAMYL TRANSPEPTIDASE < 3 U/L (5-85); LACTATE DEHYDROGENASE 366 U/L (81-234); PHOSPHORUS 8.8 MG/DL (2.5-4.9)
[2019-06-02 16:00] VITALS: BP 138/85
[2019-06-02] MEDS: Azithromycin 500 MG in D5W 275 ML IV SCH (18:28)
[2019-06-02 20:00] VITALS: BP 147/81
--- NOTE | 2019-06-02 20:20 | General Progress Note ---
Assessment/Plan Problem List: (1) Anemia ICD Codes: D64.9 - Anemia, unspecified SNOMED: 818038852 (2) Renal failure ICD Codes: N19 - Unspecified kidney failure SNOMED: 69665845 (3) Suspected COVID-19 virus infection ICD Codes: R68.89 - Other general symptoms and signs SNOMED: 660018896 (4) HTN (hypertension) ICD Codes: I10 - Essential (primary) hypertension SNOMED: 96430561 (5) CASSANDRA (acute kidney injury) ICD Codes: N17.9 - Acute kidney failure, unspecified SNOMED: 8562581, 75612208 (6) Anemia in chronic kidney disease (CKD) ICD Codes: N18.9 - Chronic kidney disease, unspecified; D63.1 - Anemia in chronic kidney disease SNOMED: 558271032 (7) Suspected COVID-19 virus infection ICD Codes: R68.89 - Other general symptoms and signs SNOMED: 838447354 Status: progressing Assessment/Plan: worsening renal failure on top of cri needs emergent HD ,patient agreed to get diaylized will diaylze amol afebrile worsening anemia of chronic renal insuff pna respiratory getting worse Subjective ROS Limited/Unobtainable: Yes Allergies: Coded Allergies: No Known Allergies (Unverified , 05/28/19) Objective Last 24 Hour Vital Signs Date Time Temp Pulse Resp B/P (MAP) Pulse Ox O2 Delivery O2 Flow Rate FiO2 06/02/19 16:00 64 06/02/19 16:00 96.3 79 22 138/85 (102) 94 06/02/19 13:26 115/82 06/02/19 12:00 97.6 73 22 115/82 (93) 98 06/02/19 12:00 65 06/02/19 10:09 87 139/80 06/02/19 10:09 87 139/80 06/02/19 09:00 Nasal Cannula 2.0 06/02/19 08:00 97.3 87 24 139/80 (99) 96 06/02/19 07:48 108 06/02/19 05:53 152/79 06/02/19 04:00 66 06/02/19 04:00 97.5 83 22 152/79 (103) 96 06/02/19 00:00 97.8 79 20 152/83 (106) 96 06/02/19 00:00 75 06/01/19 21:03 83 151/78 06/01/19 21:00 Nasal Cannula 2.0 06/01/19 20:58 Room Air 21 06/01/19 20:58 Room Air 21 Intake and Output 06/01/19 06/02/19 19:00 07:00 Intake Total 500 ml 180 ml Output Total 900 ml 400 ml Balance -400 ml -220 ml Intake Oral 500 ml 125 ml IV Total 55 ml Output Urine Total 900 ml 400 ml # Bowel Movements 2 1 Laboratory Tests 06/02/19 08:22: Arterial Blood pH 7.311L, Arterial Blood Partial Pressure CO2 24.2*L, Arterial Blood Partial Pressure O2 38.8*L, Arterial Blood HCO3 11.9*L, Arterial Blood Oxygen Saturation 73.0*L, Arterial Blood Base Excess -12.9*L, Kosta Test Positive 06/02/19 14:00: White Blood Count 15.4H, Red Blood Count 2.52L, Hemoglobin 7.7L, Hematocrit 22.5L, Mean Corpuscular Volume 89, Mean Corpuscular Hemoglobin 30.6, Mean Corpuscular Hemoglobin Concent 34.2, Red Cell Distribution Width 13.1, Platelet Count 364, Mean Platelet Volume 6.9, Neutrophils (%) (Auto) , Lymphocytes (%) ( Auto) , Monocytes (%) (Auto) , Eosinophils (%) (Auto) , Basophils (%) (Auto) , Differential Total Cells Counted 100, Neutrophils % (Manual) 92H, Lymphocytes % (Manual) 4L, Monocytes % (Manual) 3, Eosinophils % (Manual) 0, Basophils % ( Manual) 0, Band Neutrophils 1, Platelet Estimate Adequate, Platelet Morphology Normal, Hypochromasia 1+, Anisocytosis 1+, Prothrombin Time 10.5, Prothromb Time International Ratio 1.0, Activated Partial Thromboplast Time 32, D-Dimer 3.72H, Sodium Level 139, Potassium Level 4.0, Chloride Level 105, Carbon Dioxide Level 15L, Anion Gap 20H, Blood Urea Nitrogen 100H, Creatinine 9.8H, Estimat Glomerular Filtration Rate 5.4, Glucose Level 223H, Lactic Acid Level 0.70, Uric Acid 10.1H, Calcium Level 8.7, Phosphorus Level 8.8H, Magnesium Level 2.0, Total Bilirubin 0.2, Gamma Glutamyl Transpeptidase < 3L, Aspartate Amino Transf (AST/SGOT) 27, Alanine Aminotransferase (ALT/SGPT) 15, Alkaline Phosphatase 65, Lactate Dehydrogenase 366H, Troponin I 0.074H, C-Reactive Protein, Quantitative 33.7H, Pro-B-Type Natriuretic Peptide 6794H, Total Protein 7.8, Albumin 1.9L, Globulin 5.9, Albumin/Globulin Ratio 0.3L, Random Vancomycin Level 11.5, Hepatitis A IgM Antibody [Pending], Hepatitis B Surface Antigen [Pending], Hepatitis B Core IgM Antibody [Pending], Hepatitis C Antibody [Pending], HIV (1&2) Antibody Rapid Negative Height (Feet): 6 Height (Inches): 1.00 Weight (Pounds): 207 Neck: supple Cardiovascular: regular rhythm Karishma Mulligan MD Jun 02, 2019 20:19
[2019-06-02] MEDS: cefTRIAXone 1 GM in D5W 55 ML IVPB SCH (21:12)
[2019-06-02] MEDS: Depakote ER 500mg tab ORAL SCH (21:12)
[2019-06-02] MEDS: Epoetin Alfa-EPBX(ESRD on dialysis)10,000 unit/ml vial SUBQ SCH (21:13)
--- NOTE | 2019-06-02 23:15 | Progress Note ---
DATE: 05/28/2019 SUBJECTIVE: The patient is transferred back to the . He has been off psychotropic medications but he has been taking outside of the hospital. The patient is severely agitated, throw stuff at his nurse today. During the evaluation, he was hard of hearing and he stated what the F are you talking about. The patient has been shouting all day at her charge nurse. The patient is difficult to manage, refusing some of his medication and laboratory draws. We will also ask for as needed psychotropic medication. MENTAL STATUS EXAMINATION: The patient is alert, oriented to time, self, place, and situation. He did not know the date. He stated I do not give the thoughts about these things. His mood is angry. Affect is blunted. Thought process, linear and goal oriented. Thought content, no suicidal, homicidal ideation. Cognition is impaired. Insight and judgment is limited. ASSESSMENT: Major depressive disorder. PLAN: 1. No medication at this time. 2. The patient lacks capacity to make decision. Discussed with primary care physician. Guicho Pimentel M.D. DR: FOREIGN JOB#: [id number] CC:
--- NOTE | 2019-06-02 23:32 | Pulmonology Progress Note ---
Assessment/Plan Assessment/Plan Pulmonary Progress Note HPI: Patient is a 68 year old man, jail resident, admitted c/o shortness of breath, cough, noted to have Covid 19 Pneumonia. Past Medical History: COPD, CKD, Hypertension, Anemia Receiving HD, stable Pulmonary Status Allergies: No Known Allergies Stable Pulmonary Status Physical Exam Vital Signs Noted WDWN, no distress HEENT: NCAT,moist mm Chest: Occasional rhonchi Heart: HS1, HS2, RRR Abdomen: SNTND, no masses Extremities: Well perfused, mild edema [employer] VERTICAL: No focal signs, no seizures, responsive to commands. Impression: COVID-19 virus infection Pneumonia Volume overload Cardiomegaly Lymphopenia Elevated AST COPD Chronic Kidney Disease, worsening renal function Hypertension Worsening anemia Plan: Antibiotics per ID O2 PRN [employer] Medications 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 Monitor cultures/viral studies PPX Hemodialysis per Renal Psychiatry following Laboratory Tests Noted: Test 05/28/19 12:20 White Blood Count 4.6 K/UL (4.8-10.8) L Red Blood Count 2.85 M/UL (4.70-6.10) L Hemoglobin 8.7 G/DL (14.2-18.0) L Hematocrit 26.3 % (42.0-52.0) L Mean Corpuscular Volume 93 FL (80-99) Mean Corpuscular Hemoglobin 30.5 PG (27.0-31.0) Mean Corpuscular Hemoglobin Concent 33.0 G/DL (32.0-36.0) Red Cell Distribution Width 14.0 % (11.6-14.8) Platelet Count 251 K/UL (150-450) Mean Platelet Volume 6.3 FL (6.5-10.1) L Neutrophils (%) (Auto) 76.5 % (45.0-75.0) H Lymphocytes (%) (Auto) 15.7 % (20.0-45.0) L Monocytes (%) (Auto) 6.8 % (1.0-10.0) Eosinophils (%) (Auto) 0.3 % (0.0-3.0) Basophils (%) (Auto) 0.7 % (0.0-2.0) Sodium Level 137 MMOL/L (136-145) Potassium Level 4.7 MMOL/L (3.5-5.1) Chloride Level 104 MMOL/L (98-107) Carbon Dioxide Level 12 MMOL/L (21-32) L Anion Gap 21 mmol/L (5-15) H Blood Urea Nitrogen 75 mg/dL (7-18) H Creatinine 8.1 MG/DL (0.55-1.30) H Estimated Glomerular Filtration Rate 6.7 mL/min (>60) Glucose Level 145 MG/DL (74-106) H Lactic Acid Level 0.50 mmol/L (0.4-2.0) Calcium Level 8.9 MG/DL (8.5-10.1) Total Bilirubin 0.2 MG/DL (0.2-1.0) Aspartate Amino Transferase (AST) 58 U/L (15-37) H Alanine Aminotransferase (ALT) 43 U/L (12-78) Alkaline Phosphatase 98 U/L (46-116) Total Creatine Kinase 89 U/L (26-308) Creatine Kinase MB 0.8 NG/ML (0.0-3.6) Creatine Kinase MB Relative Index 0.8 Troponin I 0.000 ng/mL (0.000-0.056) Total Protein 8.3 G/DL (6.4-8.2) H Albumin 2.7 G/DL (3.4-5.0) L Globulin 5.6 g/dL Albumin/Globulin Ratio 0.5 (1.0-2.7) L CXR: Hypoventilatory exam, interstitial changes, cardiomegaly, no change Subjective ROS Limited/Unobtainable: No Constitutional: Reports: other - developed fever yesterday, today is afebrile Respiratory: Reports: dry cough, shortness of breath Psychiatric: Reports: other - refuses labs Allergies: Coded Allergies: No Known Allergies (Unverified , 05/28/19) Objective Last 24 Hour Vital Signs Date Time Temp Pulse Resp B/P (MAP) Pulse Ox O2 Delivery O2 Flow Rate FiO2 06/02/19 22:03 15.0 06/02/19 21:12 79 147/81 06/02/19 21:11 147/81 06/02/19 21:00 Nasal Cannula 2.0 06/02/19 20:00 97.5 76 20 147/81 (103) 95 06/02/19 19:10 98 06/02/19 16:00 64 06/02/19 16:00 96.3 79 22 138/85 (102) 94 06/02/19 13:26 115/82 06/02/19 12:00 97.6 73 22 115/82 (93) 98 06/02/19 12:00 65 06/02/19 10:09 87 139/80 06/02/19 10:09 87 139/80 06/02/19 09:00 Nasal Cannula 2.0 06/02/19 08:00 97.3 87 24 139/80 (99) 96 06/02/19 07:48 108 06/02/19 05:53 152/79 06/02/19 04:00 66 06/02/19 04:00 97.5 83 22 152/79 (103) 96 06/02/19 00:00 97.8 79 20 152/83 (106) 96 06/02/19 00:00 75 Intake and Output 06/01/19 06/02/19 19:00 07:00 Intake Total 500 ml 180 ml Output Total 900 ml 400 ml Balance -400 ml -220 ml Intake Oral 500 ml 125 ml IV Total 55 ml Output Urine Total 900 ml 400 ml # Bowel Movements 2 1 General Appearance: no acute distress HEENT: mucous membranes moist Abdomen: soft, non tender Extremities: other - mild edema Skin: no rash Neurologic/Psychiatric: other - sleeping Laboratory Tests 06/02/19 08:22: Arterial Blood pH 7.311L, Arterial Blood Partial Pressure CO2 24.2*L, Arterial Blood Partial Pressure O2 38.8*L, Arterial Blood HCO3 11.9*L, Arterial Blood Oxygen Saturation 73.0*L, Arterial Blood Base Excess -12.9*L, Kosta Test Positive 06/02/19 14:00: White Blood Count 15.4H, Red Blood Count 2.52L, Hemoglobin 7.7L, Hematocrit 22.5L, Mean Corpuscular Volume 89, Mean Corpuscular Hemoglobin 30.6, Mean Corpuscular Hemoglobin Concent 34.2, Red Cell Distribution Width 13.1, Platelet Count 364, Mean Platelet Volume 6.9, Neutrophils (%) (Auto) , Lymphocytes (%) ( Auto) , Monocytes (%) (Auto) , Eosinophils (%) (Auto) , Basophils (%) (Auto) , Differential Total Cells Counted 100, Neutrophils % (Manual) 92H, Lymphocytes % (Manual) 4L, Monocytes % (Manual) 3, Eosinophils % (Manual) 0, Basophils % ( Manual) 0, Band Neutrophils 1, Platelet Estimate Adequate, Platelet Morphology Normal, Hypochromasia 1+, Anisocytosis 1+, Prothrombin Time 10.5, Prothromb Time International Ratio 1.0, Activated Partial Thromboplast Time 32, D-Dimer 3.72H, Sodium Level 139, Potassium Level 4.0, Chloride Level 105, Carbon Dioxide Level 15L, Anion Gap 20H, Blood Urea Nitrogen 100H, Creatinine 9.8H, Estimat Glomerular Filtration Rate 5.4, Glucose Level 223H, Lactic Acid Level 0.70, Uric Acid 10.1H, Calcium Level 8.7, Phosphorus Level 8.8H, Magnesium Level 2.0, Total Bilirubin 0.2, Gamma Glutamyl Transpeptidase < 3L, Aspartate Amino Transf (AST/SGOT) 27, Alanine Aminotransferase (ALT/SGPT) 15, Alkaline Phosphatase 65, Lactate Dehydrogenase 366H, Troponin I 0.074H, C-Reactive Protein, Quantitative 33.7H, Pro-B-Type Natriuretic Peptide 6794H, Total Protein 7.8, Albumin 1.9L, Globulin 5.9, Albumin/Globulin Ratio 0.3L, Random Vancomycin Level 11.5, Hepatitis A IgM Antibody [Pending], Hepatitis B Surface Antigen [Pending], Hepatitis B Core IgM Antibody [Pending], Hepatitis C Antibody [Pending], HIV (1&2) Antibody Rapid Negative Current Medications Medications (Trade) Dose Ordered Sig/Anthony Route PRN Reason Start Time Stop Time Status Last Admin Dose Admin Acetaminophen (Tylenol) 650 mg Q6HR PRN ORAL MILD PAIN/Temp >100.5 05/30/19 18:56 06/29/19 18:55 06/01/19 12:27 Albuterol Sulfate (Proventil MDI) 2 puff Q4HRT INH 06/01/19 19:00 08/30/19 18:59 06/02/19 19:59 Amlodipine Besylate (Norvasc) 10 mg DAILY ORAL 05/31/19 09:00 06/28/19 08:59 06/02/19 10:09 Azithromycin 500 mg/Dextrose 275 ml @ 275 mls/hr Q24HRS IV 05/31/19 17:45 06/04/19 18:44 06/02/19 18:28 Carvedilol (Coreg) 25 mg EVERY 12 HOURS ORAL 05/30/19 21:00 06/27/19 20:59 06/02/19 21:12 Ceftriaxone Sodium 1 gm/ Dextrose 55 ml @ 110 mls/hr Q24H IVPB 05/30/19 21:00 06/04/19 20:59 06/02/19 21:12 Divalproex Sodium (Depakote ER) 500 mg BEDTIME ORAL 06/01/19 21:00 07/01/19 20:59 06/02/19 21:12 Docusate Sodium (Colace) 100 mg THREE TIMES A DAY ORAL 05/31/19 09:00 06/28/19 12:59 06/02/19 18:26 Enoxaparin Sodium (Lovenox) 30 mg DAILY SUBQ 05/31/19 09:00 08/27/19 08:59 05/31/19 10:14 Epoetin Aftab (Epoetin Aftab(ESRD on dialysis)) 10,000 unit SUBQ 06/02/19 21:00 08/31/19 20:59 06/02/19 21:13 Finasteride (Proscar) 5 mg DAILY ORAL 05/31/19 09:00 08/27/19 08:59 06/02/19 10:09 Haloperidol Lactate (Haldol) 5 mg Q6H PRN IM Agitation 05/30/19 18:59 07/12/19 18:58 06/02/19 16:45 Hydralazine HCl (Apresoline) 10 mg Q8HR ORAL 05/30/19 22:00 08/27/19 08:59 06/02/19 21:11 Hydroxychloroquine Sulfate (Plaquenil) 200 mg Q12HR ORAL 06/02/19 21:00 06/06/19 09:01 06/02/19 21:11 Pantoprazole (Protonix) 40 mg EVERY 12 HOURS ORAL 05/30/19 21:00 06/28/19 20:59 06/02/19 21:11 Salmeterol Xinafoate/ Fluticasone (Advair 100/50 Diskus) 1 puffs BID INH 05/31/19 09:00 08/27/19 08:59 06/02/19 18:27 Sevelamer Carbonate (Renvela) 1,600 mg THREE TIMES A DAY ORAL 06/01/19 09:00 08/30/19 08:59 06/02/19 18:26 Sodium Citrate (Bicitra) 30 ml EVERY 6 HOURS ORAL 05/31/19 00:00 06/28/19 11:59 06/02/19 18:26 Arturo Mckeon MD Jun 02, 2019 23:32
[2019-06-03] VITALS: BP 141/79
[2019-06-03] MEDS: Albuterol 90mcg Inhaler 8gm INH SCH ×6 (03:53→23:00)
[2019-06-03 04:00] VITALS: BP 150/79
[2019-06-03 05:14] LABS: HEMATOCRIT 22.3 % (42.0-52.0); HEMOGLOBIN 7.9 G/DL (14.2-18.0); MEAN CORPUSCULAR VOLUME 90 FL (80-99); PLATELET COUNT 346 K/UL (150-450); RED BLOOD COUNT 2.49 M/UL (4.70-6.10); WHITE BLOOD COUNT 14.5 K/UL (4.8-10.8)
[2019-06-03 05:46] LABS: ALANINE AMINOTRANSFERASE 14 U/L (12-78); ALBUMIN 1.9 G/DL (3.4-5.0); ALBUMIN/GLOBULIN RATIO 0.3 (1.0-2.7); ALKALINE PHOSPHATASE 66 U/L (46-116); ANION GAP 20 mmol/L (5-15); ASPARTATE AMINO TRANSFERASE 29 U/L (15-37); BILIRUBIN,TOTAL 0.2 MG/DL (0.2-1.0); BLOOD UREA NITROGEN 91 mg/dL (7-18); CALCIUM 8.7 MG/DL (8.5-10.1); CARBON DIOXIDE 16 MMOL/L (21-32); CHLORIDE 103 MMOL/L (98-107); CREATININE 8.8 MG/DL (0.55-1.30); GAMMA GLUTAMYL TRANSPEPTIDASE < 3 U/L (5-85); PHOSPHORUS 7.7 MG/DL (2.5-4.9); POTASSIUM 3.5 MMOL/L (3.5-5.1); SODIUM 139 MMOL/L (136-145)
[2019-06-03] MEDS: Sodium Citrate 30ml ORAL SCH ×4 (06:18→18:49)
[2019-06-03] MEDS: HydrALAZINE 10mg Tab ORAL SCH ×3 (06:18→23:01)
[2019-06-03 08:00] VITALS: BP 149/79
[2019-06-03] MEDS: Wixela 100/50 Inhaler - 60 dose INH SCH ×2 (09:00→18:00)
[2019-06-03] MEDS: Docusate 100mg cap ORAL SCH ×3 (09:00→18:00)
[2019-06-03] MEDS: Carvedilol 25mg Tab ORAL SCH ×2 (09:09→22:45)
[2019-06-03] MEDS: Enoxaparin 30mg Inj SUBQ SCH (09:12)
--- NOTE | 2019-06-03 10:57 | Infectious Diseases Prog Note ---
Assessment/Plan Assessment/Plan IMPRESSION: 1. COVID-19 pneumonia 2. MRSA carrier. 3. Chronic kidney disease likely end-stage renal disease. 4. COPD. 5. Hypertension. 6. Anemia. 7. Hypothyroidism. 8. Hyperlipidemia. 9. Major depression. RECOMMENDATIONS: Continue Zithromax, Rocephin x 1 day Continue hydroxychloroquine. Repeat COVID19 test Subjective ROS Limited/Unobtainable: Yes Constitutional: Denies: fever Respiratory: Reports: shortness of breath Allergies: Coded Allergies: No Known Allergies (Unverified , 05/28/19) Objective Vital Signs Last 24 Hour Vital Signs Date Time Temp Pulse Resp B/P (MAP) Pulse Ox O2 Delivery O2 Flow Rate FiO2 06/03/19 09:09 83 149/79 06/03/19 09:08 83 149/79 06/03/19 08:00 84 06/03/19 08:00 15.0 06/03/19 08:00 Non-Rebreather 15.0 06/03/19 08:00 97.9 83 23 149/79 (102) 98 06/03/19 06:18 151/81 06/03/19 04:00 98.5 74 22 150/79 (102) 95 06/03/19 04:00 15.0 06/03/19 04:00 Non-Rebreather 15.0 06/03/19 04:00 71 06/03/19 00:00 97.6 72 22 141/79 (99) 96 06/03/19 00:00 Non-Rebreather 15.0 06/03/19 00:00 80 06/02/19 22:03 15.0 06/02/19 21:12 79 147/81 06/02/19 21:11 147/81 06/02/19 21:00 Non-Rebreather 15.0 06/02/19 20:00 97.5 76 20 147/81 (103) 95 06/02/19 19:10 98 06/02/19 16:00 64 06/02/19 16:00 96.3 79 22 138/85 (102) 94 06/02/19 13:26 115/82 06/02/19 12:00 97.6 73 22 115/82 (93) 98 06/02/19 12:00 65 Height (Feet): 6 Height (Inches): 1.00 Weight (Pounds): 207 General Appearance: no acute distress HEENT: mucous membranes moist Respiratory/Chest: other - oxygen by rebreathing mask Cardiovascular: normal rate Abdomen: soft, non tender Extremities: no edema Neurologic/Psychiatric: alert, responsive Laboratory Tests Test 06/02/19 14:00 06/03/19 04:00 White Blood Count 15.4 K/UL (4.8-10.8) H 14.5 K/UL (4.8-10.8) H Red Blood Count 2.52 M/UL (4.70-6.10) L 2.49 M/UL (4.70-6.10) L Hemoglobin 7.7 G/DL (14.2-18.0) L 7.9 G/DL (14.2-18.0) L Hematocrit 22.5 % (42.0-52.0) L 22.3 % (42.0-52.0) L Mean Corpuscular Volume 89 FL (80-99) 90 FL (80-99) Mean Corpuscular Hemoglobin 30.6 PG (27.0-31.0) 31.5 PG (27.0-31.0) H Mean Corpuscular Hemoglobin Concent 34.2 G/DL (32.0-36.0) 35.2 G/DL (32.0-36.0) Red Cell Distribution Width 13.1 % (11.6-14.8) 13.0 % (11.6-14.8) Platelet Count 364 K/UL (150-450) 346 K/UL (150-450) Mean Platelet Volume 6.9 FL (6.5-10.1) 6.8 FL (6.5-10.1) Neutrophils (%) (Auto) % (45.0-75.0) % (45.0-75.0) Lymphocytes (%) (Auto) % (20.0-45.0) % (20.0-45.0) Monocytes (%) (Auto) % (1.0-10.0) % (1.0-10.0) Eosinophils (%) (Auto) % (0.0-3.0) % (0.0-3.0) Basophils (%) (Auto) % (0.0-2.0) % (0.0-2.0) Differential Total Cells Counted 100 100 Neutrophils % (Manual) 92 % (45-75) H 88 % (45-75) H Lymphocytes % (Manual) 4 % (20-45) L 7 % (20-45) L Monocytes % (Manual) 3 % (1-10) 3 % (1-10) Eosinophils % (Manual) 0 % (0-3) 2 % (0-3) Basophils % (Manual) 0 % (0-2) 0 % (0-2) Band Neutrophils 1 % (0-8) 0 % (0-8) Platelet Estimate Adequate Adequate Platelet Morphology Normal Normal Hypochromasia 1+ 1+ Anisocytosis 1+ Prothrombin Time 10.5 SEC (9.30-11.50) Prothromb Time International Ratio 1.0 (0.9-1.1) Activated Partial Thromboplast Time 32 SEC (23-33) D-Dimer 3.72 mg/L FEU (0.00-0.49) H Sodium Level 139 MMOL/L (136-145) 139 MMOL/L (136-145) Potassium Level 4.0 MMOL/L (3.5-5.1) 3.5 MMOL/L (3.5-5.1) Chloride Level 105 MMOL/L (98-107) 103 MMOL/L (98-107) Carbon Dioxide Level 15 MMOL/L (21-32) L 16 MMOL/L (21-32) L Anion Gap 20 mmol/L (5-15) H 20 mmol/L (5-15) H Blood Urea Nitrogen 100 mg/dL (7-18) H 91 mg/dL (7-18) H Creatinine 9.8 MG/DL (0.55-1.30) H 8.8 MG/DL (0.55-1.30) H Estimat Glomerular Filtration Rate 5.4 mL/min (>60) 6.1 mL/min (>60) Glucose Level 223 MG/DL (74-106) H 155 MG/DL (74-106) H Lactic Acid Level 0.70 mmol/L (0.4-2.0) Uric Acid 10.1 MG/DL (2.6-7.2) H Calcium Level 8.7 MG/DL (8.5-10.1) 8.7 MG/DL (8.5-10.1) Phosphorus Level 8.8 MG/DL (2.5-4.9) H 7.7 MG/DL (2.5-4.9) H Magnesium Level 2.0 MG/DL (1.8-2.4) 2.0 MG/DL (1.8-2.4) Total Bilirubin 0.2 MG/DL (0.2-1.0) 0.2 MG/DL (0.2-1.0) Gamma Glutamyl Transpeptidase < 3 U/L (5-85) L < 3 U/L (5-85) L Aspartate Amino Transf (AST/SGOT) 27 U/L (15-37) 29 U/L (15-37) Alanine Aminotransferase (ALT/SGPT) 15 U/L (12-78) 14 U/L (12-78) Alkaline Phosphatase 65 U/L (46-116) 66 U/L (46-116) Lactate Dehydrogenase 366 U/L (81-234) H Troponin I 0.074 ng/mL (0.000-0.056) C-Reactive Protein, Quantitative 33.7 mg/dL (0.00-0.90) H 34.0 mg/dL (0.00-0.90) H Pro-B-Type Natriuretic Peptide 6794 pg/mL (0-125) H 7948 pg/mL (0-125) H Total Protein 7.8 G/DL (6.4-8.2) 7.8 G/DL (6.4-8.2) Albumin 1.9 G/DL (3.4-5.0) L 1.9 G/DL (3.4-5.0) L Globulin 5.9 g/dL 5.9 g/dL Albumin/Globulin Ratio 0.3 (1.0-2.7) L 0.3 (1.0-2.7) L Random Vancomycin Level 11.5 ug/mL Hepatitis A IgM Antibody Negative (Negative) Hepatitis B Surface Antigen Negative (Negative) Hepatitis B Core IgM Antibody Negative (Negative) Hepatitis C Antibody >11.0 s/co ratio HIV (1&2) Antibody Rapid Negative (NEGATIVE) Current Medications Medications (Trade) Dose Ordered Sig/Anthony Route PRN Reason Start Time Stop Time Status Last Admin Dose Admin Acetaminophen (Tylenol) 650 mg Q6HR PRN ORAL MILD PAIN/Temp >100.5 05/30/19 18:56 06/29/19 18:55 06/01/19 12:27 Albuterol Sulfate (Proventil MDI) 2 puff Q4HRT INH 06/01/19 19:00 08/30/19 18:59 06/03/19 06:27 Amlodipine Besylate (Norvasc) 10 mg DAILY ORAL 05/31/19 09:00 06/28/19 08:59 06/03/19 09:08 Azithromycin 500 mg/Dextrose 275 ml @ 275 mls/hr Q24HRS IV 05/31/19 17:45 06/04/19 18:44 06/02/19 18:28 Carvedilol (Coreg) 25 mg EVERY 12 HOURS ORAL 05/30/19 21:00 06/27/19 20:59 06/03/19 09:09 Ceftriaxone Sodium 1 gm/ Dextrose 55 ml @ 110 mls/hr Q24H IVPB 05/30/19 21:00 06/04/19 20:59 06/02/19 21:12 Divalproex Sodium (Depakote ER) 500 mg BEDTIME ORAL 06/01/19 21:00 07/01/19 20:59 06/02/19 21:12 Docusate Sodium (Colace) 100 mg THREE TIMES A DAY ORAL 05/31/19 09:00 06/28/19 12:59 06/02/19 18:26 Enoxaparin Sodium (Lovenox) 30 mg DAILY SUBQ 05/31/19 09:00 08/27/19 08:59 06/03/19 09:12 Epoetin Aftab (Epoetin Aftab(ESRD on dialysis)) 10,000 unit FRI-FRI-FRI SUBQ 06/02/19 21:00 08/31/19 20:59 06/02/19 21:13 Finasteride (Proscar) 5 mg DAILY ORAL 05/31/19 09:00 08/27/19 08:59 06/03/19 09:09 Haloperidol Lactate (Haldol) 5 mg Q6H PRN IM Agitation 05/30/19 18:59 07/12/19 18:58 06/02/19 16:45 Hydralazine HCl (Apresoline) 10 mg Q8HR ORAL 05/30/19 22:00 08/27/19 08:59 06/03/19 06:18 Hydroxychloroquine Sulfate (Plaquenil) 200 mg Q12HR ORAL 06/02/19 21:00 06/06/19 09:01 06/03/19 09:09 Pantoprazole (Protonix) 40 mg EVERY 12 HOURS ORAL 05/30/19 21:00 06/28/19 20:59 06/03/19 09:08 Salmeterol Xinafoate/ Fluticasone (Advair 100/50 Diskus) 1 puffs BID INH 05/31/19 09:00 08/27/19 08:59 06/02/19 18:27 Sevelamer Carbonate (Renvela) 1,600 mg THREE TIMES A DAY ORAL 06/01/19 09:00 08/30/19 08:59 06/03/19 09:09 Sodium Citrate (Bicitra) 30 ml EVERY 6 HOURS ORAL 05/31/19 00:00 06/28/19 11:59 06/03/19 06:18 Ted Leyva MD Jun 03, 2019 10:57
--- NOTE | 2019-06-03 11:11 | Nephrology Progress Note ---
Assessment/Plan Problem List: (1) CASSANDRA (acute kidney injury) (2) Anemia in chronic kidney disease (CKD) (3) HTN (hypertension) (4) Suspected COVID-19 virus infection Assessment Acute renal failure most likely superimposed on chronic kidney disease Suspected COVID-19 virus infection Possible Pneumonia, lymphopenia, elevated AST Cardiomegaly, possible CHF COPD Hypertension Anemia, most likely related to chronic kidney disease Plan Positive for COVID 19 Patient received dialysis yesterday however had some catheter malfunction and the dialysis was suboptimal Patient will have dialysis again today after catheter adjustment May 31 : I believe patient need dialysis treatment He however needs to competency assessment if can make decisions or not I will communicate with Dr. Mulligan Previously: Per pulmonary and ID advice Adjust blood pressure medication Renal diet Anemia work-up 2D echocardiogram refused Kidney ultrasound refused Jules catheter Urine studies Per orders Subjective ROS Limited/Unobtainable: No Constitutional: Reports: malaise, weakness Objective Objective Last 24 Hour Vital Signs Date Time Temp Pulse Resp B/P (MAP) Pulse Ox O2 Delivery O2 Flow Rate FiO2 06/03/19 09:09 83 149/79 06/03/19 09:08 83 149/79 06/03/19 08:00 84 06/03/19 08:00 15.0 06/03/19 08:00 Non-Rebreather 15.0 06/03/19 08:00 97.9 83 23 149/79 (102) 98 06/03/19 06:18 151/81 06/03/19 04:00 98.5 74 22 150/79 (102) 95 06/03/19 04:00 15.0 06/03/19 04:00 Non-Rebreather 15.0 06/03/19 04:00 71 06/03/19 00:00 97.6 72 22 141/79 (99) 96 06/03/19 00:00 Non-Rebreather 15.0 06/03/19 00:00 80 06/02/19 22:03 15.0 06/02/19 21:12 79 147/81 06/02/19 21:11 147/81 06/02/19 21:00 Non-Rebreather 15.0 06/02/19 20:00 97.5 76 20 147/81 (103) 95 06/02/19 19:10 98 4/22/20 16:00 64 06/02/19 16:00 96.3 79 22 138/85 (102) 94 06/02/19 13:26 115/82 06/02/19 12:00 97.6 73 22 115/82 (93) 98 06/02/19 12:00 65 Intake and Output 06/02/19 06/03/19 19:00 07:00 Intake Total 500 ml 730 ml Output Total 400 ml 1850 ml Balance 100 ml -1120 ml Intake Oral 500 ml 400 ml IV Total 330 ml Output Urine Total 400 ml 350 ml Hemodialysis UF 1500 ml # Bowel Movements 2 7 Laboratory Tests 06/02/19 14:00: White Blood Count 15.4H, Red Blood Count 2.52L, Hemoglobin 7.7L, Hematocrit 22.5L, Mean Corpuscular Volume 89, Mean Corpuscular Hemoglobin 30.6, Mean Corpuscular Hemoglobin Concent 34.2, Red Cell Distribution Width 13.1, Platelet Count 364, Mean Platelet Volume 6.9, Neutrophils (%) (Auto) , Lymphocytes (%) ( Auto) , Monocytes (%) (Auto) , Eosinophils (%) (Auto) , Basophils (%) (Auto) , Differential Total Cells Counted 100, Neutrophils % (Manual) 92H, Lymphocytes % (Manual) 4L, Monocytes % (Manual) 3, Eosinophils % (Manual) 0, Basophils % ( Manual) 0, Band Neutrophils 1, Platelet Estimate Adequate, Platelet Morphology Normal, Hypochromasia 1+, Anisocytosis 1+, Prothrombin Time 10.5, Prothromb Time International Ratio 1.0, Activated Partial Thromboplast Time 32, D-Dimer 3.72H, Sodium Level 139, Potassium Level 4.0, Chloride Level 105, Carbon Dioxide Level 15L, Anion Gap 20H, Blood Urea Nitrogen 100H, Creatinine 9.8H, Estimat Glomerular Filtration Rate 5.4, Glucose Level 223H, Lactic Acid Level 0.70, Uric Acid 10.1H, Calcium Level 8.7, Phosphorus Level 8.8H, Magnesium Level 2.0, Total Bilirubin 0.2, Gamma Glutamyl Transpeptidase < 3L, Aspartate Amino Transf (AST/SGOT) 27, Alanine Aminotransferase (ALT/SGPT) 15, Alkaline Phosphatase 65, Lactate Dehydrogenase 366H, Troponin I 0.074H, C-Reactive Protein, Quantitative 33.7H, Pro-B-Type Natriuretic Peptide 6794H, Total Protein 7.8, Albumin 1.9L, Globulin 5.9, Albumin/Globulin Ratio 0.3L, Random Vancomycin Level 11.5, Hepatitis A IgM Antibody Negative, Hepatitis B Surface Antigen Negative, Hepatitis B Core IgM Antibody Negative, Hepatitis C Antibody > 11.0H, HIV (1&2) Antibody Rapid Negative 06/03/19 04:00: White Blood Count 14.5H, Red Blood Count 2.49L, Hemoglobin 7.9L, Hematocrit 22.3L, Mean Corpuscular Volume 90, Mean Corpuscular Hemoglobin 31.5H, Mean Corpuscular Hemoglobin Concent 35.2, Red Cell Distribution Width 13.0, Platelet Count 346, Mean Platelet Volume 6.8, Neutrophils (%) (Auto) , Lymphocytes (%) ( Auto) , Monocytes (%) (Auto) , Eosinophils (%) (Auto) , Basophils (%) (Auto) , Differential Total Cells Counted 100, Neutrophils % (Manual) 88H, Lymphocytes % (Manual) 7L, Monocytes % (Manual) 3, Eosinophils % (Manual) 2, Basophils % ( Manual) 0, Band Neutrophils 0, Platelet Estimate Adequate, Platelet Morphology Normal, Hypochromasia 1+, Sodium Level 139, Potassium Level 3.5, Chloride Level 103, Carbon Dioxide Level 16L, Anion Gap 20H, Blood Urea Nitrogen 91H, Creatinine 8.8H, Estimat Glomerular Filtration Rate 6.1, Glucose Level 155H, Calcium Level 8.7, Phosphorus Level 7.7H, Magnesium Level 2.0, Total Bilirubin 0.2, Gamma Glutamyl Transpeptidase < 3L, Aspartate Amino Transf (AST/SGOT) 29, Alanine Aminotransferase (ALT/SGPT) 14, Alkaline Phosphatase 66, C-Reactive Protein, Quantitative 34.0H, Pro-B-Type Natriuretic Peptide 7948H, Total Protein 7.8, Albumin 1.9L, Globulin 5.9, Albumin/Globulin Ratio 0.3L Height (Feet): 6 Height (Inches): 1.00 Weight (Pounds): 207 General Appearance: no apparent distress, lethargic Respiratory/Chest: decreased breath sounds Abdomen: distended Objective No change Mic Cole MD Jun 03, 2019 11:11
[2019-06-03 12:00] VITALS: BP 139/66
--- NOTE | 2019-06-03 12:59 | Cardiac Electrophysiology PN ---
Subjective Subjective [id number] Objective Last 24 Hour Vital Signs Date Time Temp Pulse Resp B/P (MAP) Pulse Ox O2 Delivery O2 Flow Rate FiO2 06/03/19 12:00 15.0 06/03/19 12:00 Non-Rebreather 15.0 06/03/19 12:00 97.2 78 23 139/66 (90) 98 06/03/19 09:09 83 149/79 06/03/19 09:08 83 149/79 06/03/19 08:00 84 06/03/19 08:00 15.0 06/03/19 08:00 Non-Rebreather 15.0 06/03/19 08:00 97.9 83 23 149/79 (102) 98 06/03/19 06:18 151/81 06/03/19 04:00 98.5 74 22 150/79 (102) 95 06/03/19 04:00 15.0 06/03/19 04:00 Non-Rebreather 15.0 06/03/19 04:00 71 06/03/19 00:00 97.6 72 22 141/79 (99) 96 06/03/19 00:00 Non-Rebreather 15.0 06/03/19 00:00 80 06/02/19 22:03 15.0 06/02/19 21:12 79 147/81 06/02/19 21:11 147/81 06/02/19 21:00 Non-Rebreather 15.0 06/02/19 20:00 97.5 76 20 147/81 (103) 95 06/02/19 19:10 98 06/02/19 16:00 64 06/02/19 16:00 96.3 79 22 138/85 (102) 94 06/02/19 13:26 115/82 Intake and Output 06/02/19 06/03/19 19:00 07:00 Intake Total 500 ml 730 ml Output Total 400 ml 1850 ml Balance 100 ml -1120 ml Intake Oral 500 ml 400 ml IV Total 330 ml Output Urine Total 400 ml 350 ml Hemodialysis UF 1500 ml # Bowel Movements 2 7 Laboratory Tests Test 06/02/19 14:00 06/03/19 04:00 White Blood Count 15.4 K/UL (4.8-10.8) H 14.5 K/UL (4.8-10.8) H Red Blood Count 2.52 M/UL (4.70-6.10) L 2.49 M/UL (4.70-6.10) L Hemoglobin 7.7 G/DL (14.2-18.0) L 7.9 G/DL (14.2-18.0) L Hematocrit 22.5 % (42.0-52.0) L 22.3 % (42.0-52.0) L Mean Corpuscular Volume 89 FL (80-99) 90 FL (80-99) Mean Corpuscular Hemoglobin 30.6 PG (27.0-31.0) 31.5 PG (27.0-31.0) H Mean Corpuscular Hemoglobin Concent 34.2 G/DL (32.0-36.0) 35.2 G/DL (32.0-36.0) Red Cell Distribution Width 13.1 % (11.6-14.8) 13.0 % (11.6-14.8) Platelet Count 364 K/UL (150-450) 346 K/UL (150-450) Mean Platelet Volume 6.9 FL (6.5-10.1) 6.8 FL (6.5-10.1) Neutrophils (%) (Auto) % (45.0-75.0) % (45.0-75.0) Lymphocytes (%) (Auto) % (20.0-45.0) % (20.0-45.0) Monocytes (%) (Auto) % (1.0-10.0) % (1.0-10.0) Eosinophils (%) (Auto) % (0.0-3.0) % (0.0-3.0) Basophils (%) (Auto) % (0.0-2.0) % (0.0-2.0) Differential Total Cells Counted 100 100 Neutrophils % (Manual) 92 % (45-75) H 88 % (45-75) H Lymphocytes % (Manual) 4 % (20-45) L 7 % (20-45) L Monocytes % (Manual) 3 % (1-10) 3 % (1-10) Eosinophils % (Manual) 0 % (0-3) 2 % (0-3) Basophils % (Manual) 0 % (0-2) 0 % (0-2) Band Neutrophils 1 % (0-8) 0 % (0-8) Platelet Estimate Adequate Adequate Platelet Morphology Normal Normal Hypochromasia 1+ 1+ Anisocytosis 1+ Prothrombin Time 10.5 SEC (9.30-11.50) Prothromb Time International Ratio 1.0 (0.9-1.1) Activated Partial Thromboplast Time 32 SEC (23-33) D-Dimer 3.72 mg/L FEU (0.00-0.49) H Sodium Level 139 MMOL/L (136-145) 139 MMOL/L (136-145) Potassium Level 4.0 MMOL/L (3.5-5.1) 3.5 MMOL/L (3.5-5.1) Chloride Level 105 MMOL/L (98-107) 103 MMOL/L (98-107) Carbon Dioxide Level 15 MMOL/L (21-32) L 16 MMOL/L (21-32) L Anion Gap 20 mmol/L (5-15) H 20 mmol/L (5-15) H Blood Urea Nitrogen 100 mg/dL (7-18) H 91 mg/dL (7-18) H Creatinine 9.8 MG/DL (0.55-1.30) H 8.8 MG/DL (0.55-1.30) H Estimat Glomerular Filtration Rate 5.4 mL/min (>60) 6.1 mL/min (>60) Glucose Level 223 MG/DL (74-106) H 155 MG/DL (74-106) H Lactic Acid Level 0.70 mmol/L (0.4-2.0) Uric Acid 10.1 MG/DL (2.6-7.2) H Calcium Level 8.7 MG/DL (8.5-10.1) 8.7 MG/DL (8.5-10.1) Phosphorus Level 8.8 MG/DL (2.5-4.9) H 7.7 MG/DL (2.5-4.9) H Magnesium Level 2.0 MG/DL (1.8-2.4) 2.0 MG/DL (1.8-2.4) Total Bilirubin 0.2 MG/DL (0.2-1.0) 0.2 MG/DL (0.2-1.0) Gamma Glutamyl Transpeptidase < 3 U/L (5-85) L < 3 U/L (5-85) L Aspartate Amino Transf (AST/SGOT) 27 U/L (15-37) 29 U/L (15-37) Alanine Aminotransferase (ALT/SGPT) 15 U/L (12-78) 14 U/L (12-78) Alkaline Phosphatase 65 U/L (46-116) 66 U/L (46-116) Lactate Dehydrogenase 366 U/L (81-234) H Troponin I 0.074 ng/mL (0.000-0.056) C-Reactive Protein, Quantitative 33.7 mg/dL (0.00-0.90) H 34.0 mg/dL (0.00-0.90) H Pro-B-Type Natriuretic Peptide 6794 pg/mL (0-125) H 7948 pg/mL (0-125) H Total Protein 7.8 G/DL (6.4-8.2) 7.8 G/DL (6.4-8.2) Albumin 1.9 G/DL (3.4-5.0) L 1.9 G/DL (3.4-5.0) L Globulin 5.9 g/dL 5.9 g/dL Albumin/Globulin Ratio 0.3 (1.0-2.7) L 0.3 (1.0-2.7) L Random Vancomycin Level 11.5 ug/mL Hepatitis A IgM Antibody Negative (Negative) Hepatitis B Surface Antigen Negative (Negative) Hepatitis B Core IgM Antibody Negative (Negative) Hepatitis C Antibody >11.0 s/co ratio HIV (1&2) Antibody Rapid Negative (NEGATIVE) Gio Baker MD Jun 03, 2019 12:59
--- NOTE | 2019-06-03 15:20 | Surgery Progress Note ---
Surgery Progress Note Subjective Procedure Performed right femoral temporary HD catheter insertion Additional Comments Patient seen and examined bedside. Dialysis nurse let me know that there may be a potential obstruction in the catheter. Catheter was applied by myself at bedside with nursing staff present in both ports aspirated and flushed without complication. Instructed to resume dialysis. If continues to have problem may need to replace catheter but seemingly fine when evaluated by myself at the bedside. Objective Last 24 Hour Vital Signs Date Time Temp Pulse Resp B/P (MAP) Pulse Ox O2 Delivery O2 Flow Rate FiO2 06/03/19 13:17 139/66 06/03/19 12:04 88 06/03/19 12:00 15.0 06/03/19 12:00 Non-Rebreather 15.0 06/03/19 12:00 97.2 78 23 139/66 (90) 98 06/03/19 09:09 83 149/79 06/03/19 09:08 83 149/79 06/03/19 08:00 84 06/03/19 08:00 15.0 06/03/19 08:00 Non-Rebreather 15.0 06/03/19 08:00 97.9 83 23 149/79 (102) 98 06/03/19 06:18 151/81 06/03/19 04:00 98.5 74 22 150/79 (102) 95 06/03/19 04:00 15.0 06/03/19 04:00 Non-Rebreather 15.0 06/03/19 04:00 71 06/03/19 00:00 97.6 72 22 141/79 (99) 96 06/03/19 00:00 Non-Rebreather 15.0 06/03/19 00:00 80 06/02/19 22:03 15.0 06/02/19 21:12 79 147/81 06/02/19 21:11 147/81 06/02/19 21:00 Non-Rebreather 15.0 06/02/19 20:00 97.5 76 20 147/81 (103) 95 06/02/19 19:10 98 06/02/19 16:00 64 06/02/19 16:00 96.3 79 22 138/85 (102) 94 I&O Intake and Output 06/02/19 06/03/19 19:00 07:00 Intake Total 500 ml 730 ml Output Total 400 ml 1850 ml Balance 100 ml -1120 ml Intake Oral 500 ml 400 ml IV Total 330 ml Output Urine Total 400 ml 350 ml Hemodialysis UF 1500 ml # Bowel Movements 2 7 Dressing: other Wound: other Drains: other Cardiovascular: RSR Respiratory: decreased breath sounds Abdomen: soft, non-tender, present bowel sounds Extremities: no cyanosis Laboratory Tests Test 06/03/19 04:00 White Blood Count 14.5 K/UL (4.8-10.8) H Red Blood Count 2.49 M/UL (4.70-6.10) L Hemoglobin 7.9 G/DL (14.2-18.0) L Hematocrit 22.3 % (42.0-52.0) L Mean Corpuscular Volume 90 FL (80-99) Mean Corpuscular Hemoglobin 31.5 PG (27.0-31.0) H Mean Corpuscular Hemoglobin Concent 35.2 G/DL (32.0-36.0) Red Cell Distribution Width 13.0 % (11.6-14.8) Platelet Count 346 K/UL (150-450) Mean Platelet Volume 6.8 FL (6.5-10.1) Neutrophils (%) (Auto) % (45.0-75.0) Lymphocytes (%) (Auto) % (20.0-45.0) Monocytes (%) (Auto) % (1.0-10.0) Eosinophils (%) (Auto) % (0.0-3.0) Basophils (%) (Auto) % (0.0-2.0) Differential Total Cells Counted 100 Neutrophils % (Manual) 88 % (45-75) H Lymphocytes % (Manual) 7 % (20-45) L Monocytes % (Manual) 3 % (1-10) Eosinophils % (Manual) 2 % (0-3) Basophils % (Manual) 0 % (0-2) Band Neutrophils 0 % (0-8) Platelet Estimate Adequate Platelet Morphology Normal Hypochromasia 1+ Sodium Level 139 MMOL/L (136-145) Potassium Level 3.5 MMOL/L (3.5-5.1) Chloride Level 103 MMOL/L (98-107) Carbon Dioxide Level 16 MMOL/L (21-32) L Anion Gap 20 mmol/L (5-15) H Blood Urea Nitrogen 91 mg/dL (7-18) H Creatinine 8.8 MG/DL (0.55-1.30) H Estimat Glomerular Filtration Rate 6.1 mL/min (>60) Glucose Level 155 MG/DL (74-106) H Calcium Level 8.7 MG/DL (8.5-10.1) Phosphorus Level 7.7 MG/DL (2.5-4.9) H Magnesium Level 2.0 MG/DL (1.8-2.4) Total Bilirubin 0.2 MG/DL (0.2-1.0) Gamma Glutamyl Transpeptidase < 3 U/L (5-85) L Aspartate Amino Transf (AST/SGOT) 29 U/L (15-37) Alanine Aminotransferase (ALT/SGPT) 14 U/L (12-78) Alkaline Phosphatase 66 U/L (46-116) C-Reactive Protein, Quantitative 34.0 mg/dL (0.00-0.90) H Pro-B-Type Natriuretic Peptide 7948 pg/mL (0-125) H Total Protein 7.8 G/DL (6.4-8.2) Albumin 1.9 G/DL (3.4-5.0) L Globulin 5.9 g/dL Albumin/Globulin Ratio 0.3 (1.0-2.7) L Plan Problems: (1) Suspected COVID-19 virus infection (2) HTN (hypertension) (3) CASSANDRA (acute kidney injury) Assessment & Plan: Needs urgent HD needs access patient okay and consented see note will follow with recs (4) Anemia in chronic kidney disease (CKD) (5) Anemia (6) Renal failure (7) Suspected COVID-19 virus infection (8) COVID-19 Assessment & Plan: COVID + c diff negative febrile leukocytosis renal insufficiency see above cont resp care Rx as per Yaniv Clarke Jun 03, 2019 15:20
[2019-06-03 16:00] VITALS: BP 156/85
[2019-06-03] MEDS ORDERED: Alteplase 100mg Inj IVPB ONE (16:30)
[2019-06-03] MEDS ORDERED: Cathflo Alteplase 2mg Inj INJ SCH ×2 (17:00)
--- NOTE | 2019-06-03 17:45 | Consultation ---
DATE OF CONSULTATION: 06/03/2019 CARDIOLOGY CONSULTATION CONSULTING PHYSICIAN: Gio Baker MD. REFERRING PHYSICIAN: Karishma Mulligan MD. REASON FOR CONSULTATION: Elevated troponin and tachycardia. HISTORY OF PRESENT ILLNESS: The patient is a 68-year-old gentleman who was brought from [facility] for low-grade fever and was admitted to rule out COVID-19. The patient also had acute renal failure. His initial troponin was negative; however, followup troponin was elevated. His coronavirus level was detected and was positive on May 28, 2019. Currently, the patient is in isolation. REVIEW OF SYSTEMS: Cannot be obtained. The patient is confused. PAST MEDICAL HISTORY: As mentioned above. FAMILY HISTORY: Noncontributory. SOCIAL HISTORY: intermediate resident. Does not smoke or drink alcohol. PHYSICAL EXAMINATION: VITAL SIGNS: Blood pressure 139/66, pulse is 78, respirations 18, and temperature 97.2. HEAD AND NECK: Showed no JVD. LUNGS: Decreased breath sounds. CARDIOVASCULAR: Shows regular S1 and S2. Tachycardic. ABDOMEN: Soft. EXTREMITIES: No pitting edema. LABORATORY AND DIAGNOSTIC DATA: Labs show white count of 14.5, hemoglobin 7.9, hematocrit 22.3, and platelet count of 346,000. Sodium 139, potassium 3.5, BUN of 91, creatinine of 8.8, and glucose of 155. D-dimer 3.72. ASSESSMENT AND PLAN: 1. Elevated troponin. Initial troponin on May 27 was negative. On May 30, it was also negative; however, on June 01, it was elevated at 0.074. The patient does not have any chest pain. This could be due to renal failure. At this time, I will treat the patient medically with aspirin and change amlodipine to low-dose beta-sonia. We will repeat troponin in the morning to rule out COVID myocarditis and repeat EKG as well. We will also get an EKG to evaluate prolonged QT as the patient is on Plaquenil as well as azithromycin. 2. Hypertension. The patient is on Coreg 25 mg b.i.d., hydralazine 10 mg every 8 hours, and amlodipine 10 mg daily as well as hemodialysis. 3. End-stage renal disease, on hemodialysis. He is in acute on chronic renal failure. Further dialysis per Dr. Cole. 4. COVID-19 positive pneumonia and lymphopenia. Further evaluation by Dr. Ted Leyva and Dr. Mckeon. 5. MRSA carrier. 6. COPD. 7. Anemia. 8. Depression. Thank you very much for allowing me to participate in the care of this patient. Please do not hesitate to contact me for any questions regarding my evaluation. Gio Baker M.D. DR: Edith JOB#: [id number] CC:
--- NOTE | 2019-06-03 17:56 | Hematology/Onc Progress Note ---
Assessment/Plan Assessment/Plan Assessment and Recs: # Anemia of chronic disease, likely related ot underlying kidney disease --> hgb trend 9-->8-->7.3-->7.9 --> transfuse as needed, hgb goal >7 --> no evidence of hemolysis --> peripheral smear has been reviewed --> epogen started tid # Leukocytosis likely related to suspected COVID-19 virus infection --> on abx and plaquenil --> trend smear as needed --> initially 4-->11-->14.5 # Lymphopenia --> likely related to covid19 # Possible Pneumonia # Cardiomegaly # Transaminitis with Elevated AST # COPD # Chronic Kidney Disease --> per renal hd # Hypertension Appreciate consultation and ernesto Rn Subjective Allergies: Coded Allergies: No Known Allergies (Unverified , 05/28/19) Subjective 06/01 extremely agitated, not allowing labs draws, no night sweats, cbc ordered 06/02 confused, restraints, on abx and plaquenil, hgb 7.9, nrb 15 L Objective Objective Current Medications Medications (Trade) Dose Ordered Sig/Anthony Route PRN Reason Start Time Stop Time Status Last Admin Dose Admin Acetaminophen (Tylenol) 650 mg Q6HR PRN ORAL MILD PAIN/Temp >100.5 05/30/19 18:56 06/29/19 18:55 06/01/19 12:27 Albuterol Sulfate (Proventil MDI) 2 puff Q4HRT INH 06/01/19 19:00 08/30/19 18:59 06/03/19 06:27 Alteplase, Recombinant (Cathflo) 4 mg ONCE INJ 06/03/19 17:00 06/03/19 19:00 06/03/19 17:30 Amlodipine Besylate (Norvasc) 10 mg DAILY ORAL 05/31/19 09:00 06/28/19 08:59 06/03/19 09:08 Azithromycin 500 mg/Dextrose 275 ml @ 275 mls/hr Q24HRS IV 05/31/19 17:45 06/04/19 18:44 06/02/19 18:28 Carvedilol (Coreg) 25 mg EVERY 12 HOURS ORAL 05/30/19 21:00 06/27/19 20:59 06/03/19 09:09 Ceftriaxone Sodium 1 gm/ Dextrose 55 ml @ 110 mls/hr Q24H IVPB 05/30/19 21:00 06/04/19 20:59 06/02/19 21:12 Divalproex Sodium (Depakote ER) 500 mg BEDTIME ORAL 06/01/19 21:00 07/01/19 20:59 06/02/19 21:12 Docusate Sodium (Colace) 100 mg THREE TIMES A DAY ORAL 05/31/19 09:00 06/28/19 12:59 06/02/19 18:26 Enoxaparin Sodium (Lovenox) 30 mg DAILY SUBQ 05/31/19 09:00 08/27/19 08:59 06/03/19 09:12 Epoetin Aftab (Epoetin Aftab(ESRD on dialysis)) 10,000 unit SUBQ 06/02/19 21:00 08/31/19 20:59 06/02/19 21:13 Finasteride (Proscar) 5 mg DAILY ORAL 05/31/19 09:00 08/27/19 08:59 06/03/19 09:09 Haloperidol Lactate (Haldol) 5 mg Q6H PRN IM Agitation 05/30/19 18:59 07/12/19 18:58 06/02/19 16:45 Hydralazine HCl (Apresoline) 10 mg Q8HR ORAL 05/30/19 22:00 08/27/19 08:59 06/03/19 13:17 Hydroxychloroquine Sulfate (Plaquenil) 200 mg Q12HR ORAL 06/02/19 21:00 06/06/19 09:01 06/03/19 09:09 Pantoprazole (Protonix) 40 mg EVERY 12 HOURS ORAL 05/30/19 21:00 06/28/19 20:59 06/03/19 09:08 Salmeterol Xinafoate/ Fluticasone (Advair 100/50 Diskus) 1 puffs BID INH 05/31/19 09:00 08/27/19 08:59 06/02/19 18:27 Sevelamer Carbonate (Renvela) 1,600 mg THREE TIMES A DAY ORAL 06/01/19 09:00 08/30/19 08:59 06/03/19 13:17 Sodium Citrate (Bicitra) 30 ml EVERY 6 HOURS ORAL 05/31/19 00:00 06/28/19 11:59 06/03/19 13:16 Last 24 Hour Vital Signs Date Time Temp Pulse Resp B/P (MAP) Pulse Ox O2 Delivery O2 Flow Rate FiO2 06/03/19 16:00 Non-Rebreather 15.0 06/03/19 13:17 139/66 06/03/19 12:04 88 06/03/19 12:00 15.0 06/03/19 12:00 Non-Rebreather 15.0 06/03/19 12:00 97.2 78 23 139/66 (90) 98 06/03/19 09:09 83 149/79 06/03/19 09:08 83 149/79 06/03/19 08:00 84 06/03/19 08:00 15.0 06/03/19 08:00 Non-Rebreather 15.0 06/03/19 08:00 97.9 83 23 149/79 (102) 98 06/03/19 06:18 151/81 06/03/19 04:00 98.5 74 22 150/79 (102) 95 06/03/19 04:00 15.0 06/03/19 04:00 Non-Rebreather 15.0 06/03/19 04:00 71 06/03/19 00:00 97.6 72 22 141/79 (99) 96 06/03/19 00:00 Non-Rebreather 15.0 06/03/19 00:00 80 06/02/19 22:03 15.0 06/02/19 21:12 79 147/81 06/02/19 21:11 147/81 06/02/19 21:00 Non-Rebreather 15.0 06/02/19 20:00 97.5 76 20 147/81 (103) 95 06/02/19 19:10 98 06/02/19 16:00 64 06/02/19 16:00 96.3 79 22 138/85 (102) 94 06/02/19 13:26 115/82 06/02/19 12:00 97.6 73 22 115/82 (93) 98 06/02/19 12:00 65 06/02/19 10:09 87 139/80 06/02/19 10:09 87 139/80 06/02/19 09:00 Nasal Cannula 2.0 06/02/19 08:00 97.3 87 24 139/80 (99) 96 06/02/19 07:48 108 06/02/19 05:53 152/79 06/02/19 04:00 66 06/02/19 04:00 97.5 83 22 152/79 (103) 96 06/02/19 00:00 97.8 79 20 152/83 (106) 96 06/02/19 00:00 75 06/01/19 21:03 83 151/78 06/01/19 21:00 Nasal Cannula 2.0 06/01/19 20:58 Room Air 21 06/01/19 20:58 Room Air 21 06/01/19 20:00 98.8 89 23 151/80 (103) 95 Intake and Output 06/02/19 06/03/19 19:00 07:00 Intake Total 500 ml 730 ml Output Total 400 ml 1850 ml Balance 100 ml -1120 ml Intake Oral 500 ml 400 ml IV Total 330 ml Output Urine Total 400 ml 350 ml Hemodialysis UF 1500 ml # Bowel Movements 2 7 Labs Test 06/01/19 17:27 06/02/19 08:22 06/02/19 14:00 06/03/19 04:00 Arterial Blood pH 7.321 (7.350-7.450) 7.311 (7.350-7.450) Arterial Blood Partial Pressure CO2 22.2 mmHg (35.0-45.0) 24.2 mmHg (35.0-45.0) Arterial Blood Partial Pressure O2 111.9 mmHg (75.0-100.0) 38.8 mmHg (75.0-100.0) Arterial Blood HCO3 11.2 mmol/L (22.0-26.0) 11.9 mmol/L (22.0-26.0) Arterial Blood Oxygen Saturation 97.4 % (95-100) 73.0 % (95-100) Arterial Blood Base Excess -13.4 (-2-2) -12.9 (-2-2) Kosta Test Positive Positive White Blood Count 15.4 K/UL (4.8-10.8) 14.5 K/UL (4.8-10.8) Red Blood Count 2.52 M/UL (4.70-6.10) 2.49 M/UL (4.70-6.10) Hemoglobin 7.7 G/DL (14.2-18.0) 7.9 G/DL (14.2-18.0) Hematocrit 22.5 % (42.0-52.0) 22.3 % (42.0-52.0) Mean Corpuscular Volume 89 FL (80-99) 90 FL (80-99) Mean Corpuscular Hemoglobin 30.6 PG (27.0-31.0) 31.5 PG (27.0-31.0) Mean Corpuscular Hemoglobin Concent 34.2 G/DL (32.0-36.0) 35.2 G/DL (32.0-36.0) Red Cell Distribution Width 13.1 % (11.6-14.8) 13.0 % (11.6-14.8) Platelet Count 364 K/UL (150-450) 346 K/UL (150-450) Mean Platelet Volume 6.9 FL (6.5-10.1) 6.8 FL (6.5-10.1) Neutrophils (%) (Auto) % (45.0-75.0) % (45.0-75.0) Lymphocytes (%) (Auto) % (20.0-45.0) % (20.0-45.0) Monocytes (%) (Auto) % (1.0-10.0) % (1.0-10.0) Eosinophils (%) (Auto) % (0.0-3.0) % (0.0-3.0) Basophils (%) (Auto) % (0.0-2.0) % (0.0-2.0) Differential Total Cells Counted 100 100 Neutrophils % (Manual) 92 % (45-75) 88 % (45-75) Lymphocytes % (Manual) 4 % (20-45) 7 % (20-45) Monocytes % (Manual) 3 % (1-10) 3 % (1-10) Eosinophils % (Manual) 0 % (0-3) 2 % (0-3) Basophils % (Manual) 0 % (0-2) 0 % (0-2) Band Neutrophils 1 % (0-8) 0 % (0-8) Platelet Estimate Adequate Adequate Platelet Morphology Normal Normal Hypochromasia 1+ 1+ Anisocytosis 1+ Prothrombin Time 10.5 SEC (9.30-11.50) Prothromb Time International Ratio 1.0 (0.9-1.1) Activated Partial Thromboplast Time 32 SEC (23-33) D-Dimer 3.72 mg/L FEU (0.00-0.49) Sodium Level 139 MMOL/L (136-145) 139 MMOL/L (136-145) Potassium Level 4.0 MMOL/L (3.5-5.1) 3.5 MMOL/L (3.5-5.1) Chloride Level 105 MMOL/L (98-107) 103 MMOL/L (98-107) Carbon Dioxide Level 15 MMOL/L (21-32) 16 MMOL/L (21-32) Anion Gap 20 mmol/L (5-15) 20 mmol/L (5-15) Blood Urea Nitrogen 100 mg/dL (7-18) 91 mg/dL (7-18) Creatinine 9.8 MG/DL (0.55-1.30) 8.8 MG/DL (0.55-1.30) Estimat Glomerular Filtration Rate 5.4 mL/min (>60) 6.1 mL/min (>60) Glucose Level 223 MG/DL (74-106) 155 MG/DL (74-106) Lactic Acid Level 0.70 mmol/L (0.4-2.0) Uric Acid 10.1 MG/DL (2.6-7.2) Calcium Level 8.7 MG/DL (8.5-10.1) 8.7 MG/DL (8.5-10.1) Phosphorus Level 8.8 MG/DL (2.5-4.9) 7.7 MG/DL (2.5-4.9) Magnesium Level 2.0 MG/DL (1.8-2.4) 2.0 MG/DL (1.8-2.4) Total Bilirubin 0.2 MG/DL (0.2-1.0) 0.2 MG/DL (0.2-1.0) Gamma Glutamyl Transpeptidase < 3 U/L (5-85) < 3 U/L (5-85) Aspartate Amino Transf (AST/SGOT) 27 U/L (15-37) 29 U/L (15-37) Alanine Aminotransferase (ALT/SGPT) 15 U/L (12-78) 14 U/L (12-78) Alkaline Phosphatase 65 U/L (46-116) 66 U/L (46-116) Lactate Dehydrogenase 366 U/L (81-234) Troponin I 0.074 ng/mL (0.000-0.056) C-Reactive Protein, Quantitative 33.7 mg/dL (0.00-0.90) 34.0 mg/dL (0.00-0.90) Pro-B-Type Natriuretic Peptide 6794 pg/mL (0-125) 7948 pg/mL (0-125) Total Protein 7.8 G/DL (6.4-8.2) 7.8 G/DL (6.4-8.2) Albumin 1.9 G/DL (3.4-5.0) 1.9 G/DL (3.4-5.0) Globulin 5.9 g/dL 5.9 g/dL Albumin/Globulin Ratio 0.3 (1.0-2.7) 0.3 (1.0-2.7) Random Vancomycin Level 11.5 ug/mL Hepatitis A IgM Antibody Negative (Negative) Hepatitis B Surface Antigen Negative (Negative) Hepatitis B Core IgM Antibody Negative (Negative) Hepatitis C Antibody >11.0 s/co ratio HIV (1&2) Antibody Rapid Negative (NEGATIVE) Height (Feet): 6 Height (Inches): 1.00 Weight (Pounds): 207 Objective Sp02 EP Interpretation: reviewed, normal General Appearance: no apparent distress, alert, GCS 15, non-toxic Head: normocephalic, atraumatic Eyes: bilateral eye normal inspection, bilateral eye PERRL ENT: hearing grossly normal, normal pharynx, no angioedema, normal voice Neck: full range of motion, supple/symm/no masses Respiratory: normal breath sounds, no respiratory distress, NRB+ Cardiovascular: regular rate, rhythm, no edema Gastrointestinal: normal inspection, soft, non-distended Rectal: deferred Musculoskeletal: normal range of motion, non-tender Neurologic: alert, motor strength/tone normal, sensory intact, responsive, speech normal Psychiatric: mood/affect normal, no suicidal/homicidal ideation Skin: Decubitus/Ulcer - See RN skin exam. : hinton+ Greg Cabral MD Jun 03, 2019 17:56
[2019-06-03] MEDS: Azithromycin 500 MG in D5W 275 ML IV SCH (18:51)
[2019-06-03 20:00] VITALS: BP 165/78
--- NOTE | 2019-06-03 20:31 | General Progress Note ---
Assessment/Plan Problem List: (1) Anemia ICD Codes: D64.9 - Anemia, unspecified SNOMED: 576001303 (2) Renal failure ICD Codes: N19 - Unspecified kidney failure SNOMED: 74726758 (3) Suspected COVID-19 virus infection ICD Codes: R68.89 - Other general symptoms and signs SNOMED: 374724749 (4) HTN (hypertension) ICD Codes: I10 - Essential (primary) hypertension SNOMED: 67407026 (5) CASSANDRA (acute kidney injury) ICD Codes: N17.9 - Acute kidney failure, unspecified SNOMED: 0526425, 53157665 (6) Anemia in chronic kidney disease (CKD) ICD Codes: N18.9 - Chronic kidney disease, unspecified; D63.1 - Anemia in chronic kidney disease SNOMED: 931043196 (7) Suspected COVID-19 virus infection ICD Codes: R68.89 - Other general symptoms and signs SNOMED: 414693135 Status: progressing Assessment/Plan: worsening renal failure on top of cri needs emergent HD ,patient agreed to get diaylized will diaylze worsening anemia of chronic renal insuff fluid overload removal of fluid per renal pna respiratory getting worse Subjective ROS Limited/Unobtainable: Yes Allergies: Coded Allergies: No Known Allergies (Unverified , 05/28/19) Objective Last 24 Hour Vital Signs Date Time Temp Pulse Resp B/P (MAP) Pulse Ox O2 Delivery O2 Flow Rate FiO2 06/03/19 16:00 90 06/03/19 16:00 Non-Rebreather 15.0 06/03/19 16:00 97.2 100 23 156/85 (108) 98 06/03/19 16:00 15.0 06/03/19 13:17 139/66 06/03/19 12:04 88 06/03/19 12:00 15.0 06/03/19 12:00 Non-Rebreather 15.0 06/03/19 12:00 97.2 78 23 139/66 (90) 98 06/03/19 09:09 83 149/79 06/03/19 09:08 83 149/79 06/03/19 08:00 84 06/03/19 08:00 15.0 06/03/19 08:00 Non-Rebreather 15.0 06/03/19 08:00 97.9 83 23 149/79 (102) 98 06/03/19 06:18 151/81 06/03/19 04:00 98.5 74 22 150/79 (102) 95 06/03/19 04:00 15.0 06/03/19 04:00 Non-Rebreather 15.0 06/03/19 04:00 71 06/03/19 00:00 97.6 72 22 141/79 (99) 96 06/03/19 00:00 Non-Rebreather 15.0 06/03/19 00:00 80 06/02/19 22:03 15.0 06/02/19 21:12 79 147/81 06/02/19 21:11 147/81 06/02/19 21:00 Non-Rebreather 15.0 Intake and Output 06/02/19 06/03/19 19:00 07:00 Intake Total 500 ml 730 ml Output Total 400 ml 1850 ml Balance 100 ml -1120 ml Intake Oral 500 ml 400 ml IV Total 330 ml Output Urine Total 400 ml 350 ml Hemodialysis UF 1500 ml # Bowel Movements 2 7 Laboratory Tests 06/03/19 04:00: White Blood Count 14.5H, Red Blood Count 2.49L, Hemoglobin 7.9L, Hematocrit 22.3L, Mean Corpuscular Volume 90, Mean Corpuscular Hemoglobin 31.5H, Mean Corpuscular Hemoglobin Concent 35.2, Red Cell Distribution Width 13.0, Platelet Count 346, Mean Platelet Volume 6.8, Neutrophils (%) (Auto) , Lymphocytes (%) ( Auto) , Monocytes (%) (Auto) , Eosinophils (%) (Auto) , Basophils (%) (Auto) , Differential Total Cells Counted 100, Neutrophils % (Manual) 88H, Lymphocytes % (Manual) 7L, Monocytes % (Manual) 3, Eosinophils % (Manual) 2, Basophils % ( Manual) 0, Band Neutrophils 0, Platelet Estimate Adequate, Platelet Morphology Normal, Hypochromasia 1+, Sodium Level 139, Potassium Level 3.5, Chloride Level 103, Carbon Dioxide Level 16L, Anion Gap 20H, Blood Urea Nitrogen 91H, Creatinine 8.8H, Estimat Glomerular Filtration Rate 6.1, Glucose Level 155H, Calcium Level 8.7, Phosphorus Level 7.7H, Magnesium Level 2.0, Total Bilirubin 0.2, Gamma Glutamyl Transpeptidase < 3L, Aspartate Amino Transf (AST/SGOT) 29, Alanine Aminotransferase (ALT/SGPT) 14, Alkaline Phosphatase 66, C-Reactive Protein, Quantitative 34.0H, Pro-B-Type Natriuretic Peptide 7948H, Total Protein 7.8, Albumin 1.9L, Globulin 5.9, Albumin/Globulin Ratio 0.3L Height (Feet): 6 Height (Inches): 1.00 Weight (Pounds): 207 Karishma Mulligan MD Jun 03, 2019 20:31
[2019-06-03] MEDS: Depakote ER 500mg tab ORAL SCH (21:00)
[2019-06-03] MEDS: cefTRIAXone 1 GM in D5W 55 ML IVPB SCH (22:46)
--- NOTE | 2019-06-03 23:51 | Pulmonology Progress Note ---
Assessment/Plan Assessment/Plan Pulmonary Progress Note HPI: Patient is a 68 year old man, shelter resident, admitted c/o shortness of breath, cough, noted to have Covid 19 Pneumonia. 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 Monitor cultures/viral studies PPX Hemodialysis per Renal Psychiatry following Laboratory Tests Noted: Test 05/28/19 12:20 White Blood Count 4.6 K/UL (4.8-10.8) L Red Blood Count 2.85 M/UL (4.70-6.10) L Hemoglobin 8.7 G/DL (14.2-18.0) L Hematocrit 26.3 % (42.0-52.0) L Mean Corpuscular Volume 93 FL (80-99) Mean Corpuscular Hemoglobin 30.5 PG (27.0-31.0) Mean Corpuscular Hemoglobin Concent 33.0 G/DL (32.0-36.0) Red Cell Distribution Width 14.0 % (11.6-14.8) Platelet Count 251 K/UL (150-450) Mean Platelet Volume 6.3 FL (6.5-10.1) L Neutrophils (%) (Auto) 76.5 % (45.0-75.0) H Lymphocytes (%) (Auto) 15.7 % (20.0-45.0) L Monocytes (%) (Auto) 6.8 % (1.0-10.0) Eosinophils (%) (Auto) 0.3 % (0.0-3.0) Basophils (%) (Auto) 0.7 % (0.0-2.0) Sodium Level 137 MMOL/L (136-145) Potassium Level 4.7 MMOL/L (3.5-5.1) Chloride Level 104 MMOL/L (98-107) Carbon Dioxide Level 12 MMOL/L (21-32) L Anion Gap 21 mmol/L (5-15) H Blood Urea Nitrogen 75 mg/dL (7-18) H Creatinine 8.1 MG/DL (0.55-1.30) H Estimated Glomerular Filtration Rate 6.7 mL/min (>60) Glucose Level 145 MG/DL (74-106) H Lactic Acid Level 0.50 mmol/L (0.4-2.0) Calcium Level 8.9 MG/DL (8.5-10.1) Total Bilirubin 0.2 MG/DL (0.2-1.0) Aspartate Amino Transferase (AST) 58 U/L (15-37) H Alanine Aminotransferase (ALT) 43 U/L (12-78) Alkaline Phosphatase 98 U/L (46-116) Total Creatine Kinase 89 U/L (26-308) Creatine Kinase MB 0.8 NG/ML (0.0-3.6) Creatine Kinase MB Relative Index 0.8 Troponin I 0.000 ng/mL (0.000-0.056) Total Protein 8.3 G/DL (6.4-8.2) H Albumin 2.7 G/DL (3.4-5.0) L Globulin 5.6 g/dL Albumin/Globulin Ratio 0.5 (1.0-2.7) L CXR: Hypoventilatory exam, interstitial changes, cardiomegaly, no change Subjective ROS Limited/Unobtainable: No Constitutional: Denies: fever Respiratory: Reports: dry cough, shortness of breath Psychiatric: Reports: other - refuses labs Allergies: Coded Allergies: No Known Allergies (Unverified , 05/28/19) Objective Last 24 Hour Vital Signs Date Time Temp Pulse Resp B/P (MAP) Pulse Ox O2 Delivery O2 Flow Rate FiO2 06/03/19 23:01 160/90 06/03/19 22:45 103 160/90 06/03/19 16:00 90 06/03/19 16:00 Non-Rebreather 15.0 06/03/19 16:00 97.2 100 23 156/85 (108) 98 06/03/19 16:00 15.0 06/03/19 13:17 139/66 06/03/19 12:04 88 06/03/19 12:00 15.0 06/03/19 12:00 Non-Rebreather 15.0 06/03/19 12:00 97.2 78 23 139/66 (90) 98 06/03/19 09:09 83 149/79 06/03/19 09:08 83 149/79 06/03/19 08:00 84 06/03/19 08:00 15.0 06/03/19 08:00 Non-Rebreather 15.0 06/03/19 08:00 97.9 83 23 149/79 (102) 98 06/03/19 06:18 151/81 06/03/19 04:00 98.5 74 22 150/79 (102) 95 06/03/19 04:00 15.0 06/03/19 04:00 Non-Rebreather 15.0 06/03/19 04:00 71 06/03/19 00:00 97.6 72 22 141/79 (99) 96 06/03/19 00:00 Non-Rebreather 15.0 06/03/19 00:00 80 Intake and Output 06/02/19 06/03/19 19:00 07:00 Intake Total 500 ml 730 ml Output Total 400 ml 1850 ml Balance 100 ml -1120 ml Intake Oral 500 ml 400 ml IV Total 330 ml Output Urine Total 400 ml 350 ml Hemodialysis UF 1500 ml # Bowel Movements 2 7 General Appearance: no acute distress HEENT: mucous membranes moist Abdomen: soft, non tender Extremities: no edema Skin: no rash Neurologic/Psychiatric: alert, responsive Laboratory Tests 06/03/19 04:00: White Blood Count 14.5H, Red Blood Count 2.49L, Hemoglobin 7.9L, Hematocrit 22.3L, Mean Corpuscular Volume 90, Mean Corpuscular Hemoglobin 31.5H, Mean Corpuscular Hemoglobin Concent 35.2, Red Cell Distribution Width 13.0, Platelet Count 346, Mean Platelet Volume 6.8, Neutrophils (%) (Auto) , Lymphocytes (%) ( Auto) , Monocytes (%) (Auto) , Eosinophils (%) (Auto) , Basophils (%) (Auto) , Differential Total Cells Counted 100, Neutrophils % (Manual) 88H, Lymphocytes % (Manual) 7L, Monocytes % (Manual) 3, Eosinophils % (Manual) 2, Basophils % ( Manual) 0, Band Neutrophils 0, Platelet Estimate Adequate, Platelet Morphology Normal, Hypochromasia 1+, Sodium Level 139, Potassium Level 3.5, Chloride Level 103, Carbon Dioxide Level 16L, Anion Gap 20H, Blood Urea Nitrogen 91H, Creatinine 8.8H, Estimat Glomerular Filtration Rate 6.1, Glucose Level 155H, Calcium Level 8.7, Phosphorus Level 7.7H, Magnesium Level 2.0, Total Bilirubin 0.2, Gamma Glutamyl Transpeptidase < 3L, Aspartate Amino Transf (AST/SGOT) 29, Alanine Aminotransferase (ALT/SGPT) 14, Alkaline Phosphatase 66, C-Reactive Protein, Quantitative 34.0H, Pro-B-Type Natriuretic Peptide 7948H, Total Protein 7.8, Albumin 1.9L, Globulin 5.9, Albumin/Globulin Ratio 0.3L Current Medications Medications (Trade) Dose Ordered Sig/Anthony Route PRN Reason Start Time Stop Time Status Last Admin Dose Admin Acetaminophen (Tylenol) 650 mg Q6HR PRN ORAL MILD PAIN/Temp >100.5 05/30/19 18:56 06/29/19 18:55 06/01/19 12:27 Albuterol Sulfate (Proventil MDI) 2 puff Q4HRT INH 06/01/19 19:00 08/30/19 18:59 06/03/19 15:00 Amlodipine Besylate (Norvasc) 10 mg DAILY ORAL 05/31/19 09:00 06/28/19 08:59 06/03/19 09:08 Azithromycin 500 mg/Dextrose 275 ml @ 275 mls/hr Q24HRS IV 05/31/19 17:45 06/04/19 18:44 06/03/19 18:51 Carvedilol (Coreg) 25 mg EVERY 12 HOURS ORAL 05/30/19 21:00 06/27/19 20:59 06/03/19 22:45 Ceftriaxone Sodium 1 gm/ Dextrose 55 ml @ 110 mls/hr Q24H IVPB 05/30/19 21:00 06/04/19 20:59 06/03/19 22:46 Divalproex Sodium (Depakote ER) 500 mg BEDTIME ORAL 06/01/19 21:00 07/01/19 20:59 06/02/19 21:12 Docusate Sodium (Colace) 100 mg THREE TIMES A DAY ORAL 05/31/19 09:00 06/28/19 12:59 06/02/19 18:26 Enoxaparin Sodium (Lovenox) 30 mg DAILY SUBQ 05/31/19 09:00 08/27/19 08:59 06/03/19 09:12 Epoetin Aftab (Epoetin Aftab(ESRD on dialysis)) 10,000 unit SUBQ 06/02/19 21:00 08/31/19 20:59 06/02/19 21:13 Finasteride (Proscar) 5 mg DAILY ORAL 05/31/19 09:00 08/27/19 08:59 06/03/19 09:09 Haloperidol Lactate (Haldol) 5 mg Q6H PRN IM Agitation 05/30/19 18:59 07/12/19 18:58 06/02/19 16:45 Hydralazine HCl (Apresoline) 10 mg Q8HR ORAL 05/30/19 22:00 08/27/19 08:59 06/03/19 23:01 Hydroxychloroquine Sulfate (Plaquenil) 200 mg Q12HR ORAL 06/02/19 21:00 06/06/19 09:01 06/03/19 22:44 Pantoprazole (Protonix) 40 mg EVERY 12 HOURS ORAL 05/30/19 21:00 06/28/19 20:59 06/03/19 22:45 Salmeterol Xinafoate/ Fluticasone (Advair 100/50 Diskus) 1 puffs BID INH 05/31/19 09:00 08/27/19 08:59 06/03/19 18:00 Sevelamer Carbonate (Renvela) 1,600 mg THREE TIMES A DAY ORAL 06/01/19 09:00 08/30/19 08:59 06/03/19 18:53 Sodium Citrate (Bicitra) 30 ml EVERY 6 HOURS ORAL 05/31/19 00:00 06/28/19 11:59 06/03/19 18:49 Arturo Mckeon MD Jun 03, 2019 23:51
[2019-06-04] VITALS (7 sets, daily range): BP systolic 135–157; BP diastolic 70–100
[2019-06-04] MEDS: Sodium Citrate 30ml ORAL SCH ×4 (00:01→18:11)
[2019-06-04] MEDS: Albuterol 90mcg Inhaler 8gm INH SCH ×6 (02:37→23:00)
--- NOTE | 2019-06-04 04:45 | Progress Note ---
DATE: 06/03/2019 SUBJECTIVE: dialysis, noncooperative. Has been yelling all day and is agitated due to being on restraint. Able to answer the question. Hard of hearing. MENTAL STATUS EXAMINATION: Poor insight. No suicidal or homicidal ideation. Cognition is impaired. ASSESSMENT: Major depressive disorder, cognitive impairment. PLAN: Continue to monitor the symptoms. Discussed with this nurse. Guicho Pimentel M.D. DR: Yogesh JOB#: [id number] CC:
[2019-06-04] MEDS: HydrALAZINE 10mg Tab ORAL SCH ×3 (05:45→21:17)
--- NOTE | 2019-06-04 06:14 | Hematology/Onc Progress Note ---
Assessment/Plan Assessment/Plan Assessment and Recs: # Anemia of chronic disease, likely related ot underlying kidney disease --> hgb trend 9-->8-->7.3-->7.9 --> transfuse as needed, hgb goal >7 --> no evidence of hemolysis --> peripheral smear has been reviewed --> epogen started tid # Leukocytosis likely related to suspected COVID-19 virus infection --> on abx and plaquenil --> trend smear as needed --> initially 4-->11-->14.5 # Lymphopenia --> likely related to covid19 # Possible Pneumonia # Cardiomegaly # Transaminitis with Elevated AST # COPD # Chronic Kidney Disease --> per renal hd # Hypertension Appreciate consultation and dw Rn Subjective Constitutional: Denies: no symptoms, chills, fever, malaise, weakness, other HEENT: Denies: no symptoms, eye pain, blurred vision, tearing, double vision, ear pain, ear discharge, nose pain, nose congestion, throat pain, throat swelling, mouth pain, mouth swelling, other Cardiovascular: Denies: no symptoms, chest pain, edema, irregular heart rate, lightheadedness, palpitations, syncope, other Respiratory: Denies: no symptoms, cough, shortness of breath, SOB with excertion, SOB at rest, sputum, wheezing, other Gastrointestinal/Abdominal: Denies: no symptoms, abdomen distended, abdominal pain, black stools, tarry stools, blood in stool, constipated, diarrhea, difficulty swallowing, nausea, poor appetite, poor fluid intake, rectal bleeding , vomiting, other Genitourinary: Denies: no symptoms, burning, discharge, frequency, flank pain, hematuria, incontinence, pain, urgency, other Neurologic/Psychiatric: Denies: no symptoms, anxiety, depressed, emotional problems, headache, numbness, paresthesia, pre-existing deficit, seizure, tingling, tremors, weakness, other Endocrine: Denies: no symptoms, excessive sweating, flushing, intolerance to cold, intolerance to heat, increased hunger, increased thirst, increased urine, unexplained weight gain, unexplained weight loss, other Allergies: Coded Allergies: No Known Allergies (Unverified , 05/28/19) Subjective 06/01 extremely agitated, not allowing labs draws, no night sweats, cbc ordered 06/02 confused, restraints, on abx and plaquenil, hgb 7.9, nrb 15 L 06/03 is with nonrebreather, but not compliant, remains confused Objective Objective Current Medications Medications (Trade) Dose Ordered Sig/Anthony Route PRN Reason Start Time Stop Time Status Last Admin Dose Admin Acetaminophen (Tylenol) 650 mg Q6HR PRN ORAL MILD PAIN/Temp >100.5 05/30/19 18:56 06/29/19 18:55 06/01/19 12:27 Albuterol Sulfate (Proventil MDI) 2 puff Q4HRT INH 06/01/19 19:00 08/30/19 18:59 06/04/19 02:37 Amlodipine Besylate (Norvasc) 10 mg DAILY ORAL 05/31/19 09:00 06/28/19 08:59 06/03/19 09:08 Azithromycin 500 mg/Dextrose 275 ml @ 275 mls/hr Q24HRS IV 05/31/19 17:45 06/04/19 18:44 06/03/19 18:51 Carvedilol (Coreg) 25 mg EVERY 12 HOURS ORAL 05/30/19 21:00 06/27/19 20:59 06/03/19 22:45 Ceftriaxone Sodium 1 gm/ Dextrose 55 ml @ 110 mls/hr Q24H IVPB 05/30/19 21:00 06/04/19 20:59 06/03/19 22:46 Divalproex Sodium (Depakote ER) 500 mg BEDTIME ORAL 06/01/19 21:00 07/01/19 20:59 06/02/19 21:12 Docusate Sodium (Colace) 100 mg THREE TIMES A DAY ORAL 05/31/19 09:00 06/28/19 12:59 06/02/19 18:26 Enoxaparin Sodium (Lovenox) 30 mg DAILY SUBQ 05/31/19 09:00 08/27/19 08:59 06/03/19 09:12 Epoetin Aftab (Epoetin Aftab(ESRD on dialysis)) 10,000 unit MON-WED-FRI SUBQ 06/02/19 21:00 08/31/19 20:59 06/02/19 21:13 Finasteride (Proscar) 5 mg DAILY ORAL 05/31/19 09:00 08/27/19 08:59 06/03/19 09:09 Haloperidol Lactate (Haldol) 5 mg Q6H PRN IM Agitation 05/30/19 18:59 07/12/19 18:58 06/02/19 16:45 Hydralazine HCl (Apresoline) 10 mg Q8HR ORAL 05/30/19 22:00 08/27/19 08:59 06/04/19 05:45 Hydroxychloroquine Sulfate (Plaquenil) 200 mg Q12HR ORAL 06/02/19 21:00 06/06/19 09:01 06/03/19 22:44 Pantoprazole (Protonix) 40 mg EVERY 12 HOURS ORAL 05/30/19 21:00 06/28/19 20:59 06/03/19 22:45 Salmeterol Xinafoate/ Fluticasone (Advair 100/50 Diskus) 1 puffs BID INH 05/31/19 09:00 08/27/19 08:59 06/03/19 18:00 Sevelamer Carbonate (Renvela) 1,600 mg THREE TIMES A DAY ORAL 06/01/19 09:00 08/30/19 08:59 06/03/19 18:53 Sodium Citrate (Bicitra) 30 ml EVERY 6 HOURS ORAL 05/31/19 00:00 06/28/19 11:59 06/04/19 05:45 Last 24 Hour Vital Signs Date Time Temp Pulse Resp B/P (MAP) Pulse Ox O2 Delivery O2 Flow Rate FiO2 06/04/19 05:45 142/70 06/04/19 04:00 97.8 80 23 142/70 (94) 98 06/04/19 04:00 15.0 06/04/19 04:00 Non-Rebreather 15.0 06/04/19 04:00 75 06/04/19 00:00 106 06/04/19 00:00 15.0 06/04/19 00:00 98.6 95 23 148/75 (99) 98 06/04/19 00:00 Non-Rebreather 15.0 06/03/19 23:01 160/90 06/03/19 22:45 103 160/90 06/03/19 20:00 97.5 98 23 165/78 (107) 98 06/03/19 20:00 Non-Rebreather 15.0 06/03/19 16:00 90 06/03/19 16:00 Non-Rebreather 15.0 06/03/19 16:00 97.2 100 23 156/85 (108) 98 06/03/19 16:00 15.0 06/03/19 13:17 139/66 06/03/19 12:04 88 06/03/19 12:00 15.0 06/03/19 12:00 Non-Rebreather 15.0 06/03/19 12:00 97.2 78 23 139/66 (90) 98 06/03/19 09:09 83 149/79 06/03/19 09:08 83 149/79 06/03/19 08:00 84 06/03/19 08:00 15.0 06/03/19 08:00 Non-Rebreather 15.0 06/03/19 08:00 97.9 83 23 149/79 (102) 98 06/03/19 06:18 151/81 06/03/19 04:00 98.5 74 22 150/79 (102) 95 06/03/19 04:00 15.0 06/03/19 04:00 Non-Rebreather 15.0 06/03/19 04:00 71 06/03/19 00:00 97.6 72 22 141/79 (99) 96 06/03/19 00:00 Non-Rebreather 15.0 06/03/19 00:00 80 06/02/19 22:03 15.0 06/02/19 21:12 79 147/81 06/02/19 21:11 147/81 06/02/19 21:00 Non-Rebreather 15.0 06/02/19 20:00 97.5 76 20 147/81 (103) 95 06/02/19 19:10 98 06/02/19 16:00 64 06/02/19 16:00 96.3 79 22 138/85 (102) 94 06/02/19 13:26 115/82 06/02/19 12:00 97.6 73 22 115/82 (93) 98 06/02/19 12:00 65 06/02/19 10:09 87 139/80 06/02/19 10:09 87 139/80 06/02/19 09:00 Nasal Cannula 2.0 06/02/19 08:00 97.3 87 24 139/80 (99) 96 06/02/19 07:48 108 Intake and Output 06/03/19 06/04/19 19:00 07:00 Intake Total 300 ml Output Total 2500 ml Balance -2200 ml Intake Oral 300 ml Output Urine Total 500 ml Hemodialysis UF 2000 ml Labs Test 06/01/19 17:27 06/02/19 08:22 06/02/19 14:00 06/03/19 04:00 Arterial Blood pH 7.321 (7.350-7.450) 7.311 (7.350-7.450) Arterial Blood Partial Pressure CO2 22.2 mmHg (35.0-45.0) 24.2 mmHg (35.0-45.0) Arterial Blood Partial Pressure O2 111.9 mmHg (75.0-100.0) 38.8 mmHg (75.0-100.0) Arterial Blood HCO3 11.2 mmol/L (22.0-26.0) 11.9 mmol/L (22.0-26.0) Arterial Blood Oxygen Saturation 97.4 % (95-100) 73.0 % (95-100) Arterial Blood Base Excess -13.4 (-2-2) -12.9 (-2-2) Kosta Test Positive Positive White Blood Count 15.4 K/UL (4.8-10.8) 14.5 K/UL (4.8-10.8) Red Blood Count 2.52 M/UL (4.70-6.10) 2.49 M/UL (4.70-6.10) Hemoglobin 7.7 G/DL (14.2-18.0) 7.9 G/DL (14.2-18.0) Hematocrit 22.5 % (42.0-52.0) 22.3 % (42.0-52.0) Mean Corpuscular Volume 89 FL (80-99) 90 FL (80-99) Mean Corpuscular Hemoglobin 30.6 PG (27.0-31.0) 31.5 PG (27.0-31.0) Mean Corpuscular Hemoglobin Concent 34.2 G/DL (32.0-36.0) 35.2 G/DL (32.0-36.0) Red Cell Distribution Width 13.1 % (11.6-14.8) 13.0 % (11.6-14.8) Platelet Count 364 K/UL (150-450) 346 K/UL (150-450) Mean Platelet Volume 6.9 FL (6.5-10.1) 6.8 FL (6.5-10.1) Neutrophils (%) (Auto) % (45.0-75.0) % (45.0-75.0) Lymphocytes (%) (Auto) % (20.0-45.0) % (20.0-45.0) Monocytes (%) (Auto) % (1.0-10.0) % (1.0-10.0) Eosinophils (%) (Auto) % (0.0-3.0) % (0.0-3.0) Basophils (%) (Auto) % (0.0-2.0) % (0.0-2.0) Differential Total Cells Counted 100 100 Neutrophils % (Manual) 92 % (45-75) 88 % (45-75) Lymphocytes % (Manual) 4 % (20-45) 7 % (20-45) Monocytes % (Manual) 3 % (1-10) 3 % (1-10) Eosinophils % (Manual) 0 % (0-3) 2 % (0-3) Basophils % (Manual) 0 % (0-2) 0 % (0-2) Band Neutrophils 1 % (0-8) 0 % (0-8) Platelet Estimate Adequate Adequate Platelet Morphology Normal Normal Hypochromasia 1+ 1+ Anisocytosis 1+ Prothrombin Time 10.5 SEC (9.30-11.50) Prothromb Time International Ratio 1.0 (0.9-1.1) Activated Partial Thromboplast Time 32 SEC (23-33) D-Dimer 3.72 mg/L FEU (0.00-0.49) Sodium Level 139 MMOL/L (136-145) 139 MMOL/L (136-145) Potassium Level 4.0 MMOL/L (3.5-5.1) 3.5 MMOL/L (3.5-5.1) Chloride Level 105 MMOL/L (98-107) 103 MMOL/L (98-107) Carbon Dioxide Level 15 MMOL/L (21-32) 16 MMOL/L (21-32) Anion Gap 20 mmol/L (5-15) 20 mmol/L (5-15) Blood Urea Nitrogen 100 mg/dL (7-18) 91 mg/dL (7-18) Creatinine 9.8 MG/DL (0.55-1.30) 8.8 MG/DL (0.55-1.30) Estimat Glomerular Filtration Rate 5.4 mL/min (>60) 6.1 mL/min (>60) Glucose Level 223 MG/DL (74-106) 155 MG/DL (74-106) Lactic Acid Level 0.70 mmol/L (0.4-2.0) Uric Acid 10.1 MG/DL (2.6-7.2) Calcium Level 8.7 MG/DL (8.5-10.1) 8.7 MG/DL (8.5-10.1) Phosphorus Level 8.8 MG/DL (2.5-4.9) 7.7 MG/DL (2.5-4.9) Magnesium Level 2.0 MG/DL (1.8-2.4) 2.0 MG/DL (1.8-2.4) Total Bilirubin 0.2 MG/DL (0.2-1.0) 0.2 MG/DL (0.2-1.0) Gamma Glutamyl Transpeptidase < 3 U/L (5-85) < 3 U/L (5-85) Aspartate Amino Transf (AST/SGOT) 27 U/L (15-37) 29 U/L (15-37) Alanine Aminotransferase (ALT/SGPT) 15 U/L (12-78) 14 U/L (12-78) Alkaline Phosphatase 65 U/L (46-116) 66 U/L (46-116) Lactate Dehydrogenase 366 U/L (81-234) Troponin I 0.074 ng/mL (0.000-0.056) C-Reactive Protein, Quantitative 33.7 mg/dL (0.00-0.90) 34.0 mg/dL (0.00-0.90) Pro-B-Type Natriuretic Peptide 6794 pg/mL (0-125) 7948 pg/mL (0-125) Total Protein 7.8 G/DL (6.4-8.2) 7.8 G/DL (6.4-8.2) Albumin 1.9 G/DL (3.4-5.0) 1.9 G/DL (3.4-5.0) Globulin 5.9 g/dL 5.9 g/dL Albumin/Globulin Ratio 0.3 (1.0-2.7) 0.3 (1.0-2.7) Random Vancomycin Level 11.5 ug/mL Hepatitis A IgM Antibody Negative (Negative) Hepatitis B Surface Antigen Negative (Negative) Hepatitis B Core IgM Antibody Negative (Negative) Hepatitis C Antibody >11.0 s/co ratio HIV (1&2) Antibody Rapid Negative (NEGATIVE) Height (Feet): 6 Height (Inches): 1.00 Weight (Pounds): 207 Objective Sp02 EP Interpretation: reviewed, normal General Appearance: no apparent distress, alert, GCS 15, non-toxic Head: normocephalic, atraumatic Eyes: bilateral eye normal inspection, bilateral eye PERRL ENT: hearing grossly normal, normal pharynx, no angioedema, normal voice Neck: full range of motion, supple/symm/no masses Respiratory: normal breath sounds, no respiratory distress, NRB+ Cardiovascular: regular rate, rhythm, no edema Gastrointestinal: normal inspection, soft, non-distended Rectal: deferred Musculoskeletal: normal range of motion, non-tender Neurologic: alert, motor strength/tone normal, sensory intact, responsive, speech normal Psychiatric: mood/affect normal, no suicidal/homicidal ideation Skin: Decubitus/Ulcer - See RN skin exam. : jamaal+ Greg Cabral MD Jun 04, 2019 06:14
[2019-06-04] MEDS: Enoxaparin 30mg Inj SUBQ SCH (09:08)
[2019-06-04] MEDS: Docusate 100mg cap ORAL SCH ×3 (09:11→18:00)
[2019-06-04] MEDS: Wixela 100/50 Inhaler - 60 dose INH SCH ×2 (09:11→18:11)
[2019-06-04] MEDS: Carvedilol 25mg Tab ORAL SCH ×2 (09:13→21:15)
[2019-06-04 10:04] LABS: HEMATOCRIT 25.6 % (42.0-52.0); HEMOGLOBIN 8.8 G/DL (14.2-18.0); MEAN CORPUSCULAR VOLUME 89 FL (80-99); PLATELET COUNT 334 K/UL (150-450); RED BLOOD COUNT 2.88 M/UL (4.70-6.10); RED CELL DISTRIBUTION WIDTH 13.2 % (11.6-14.8); WHITE BLOOD COUNT 14.4 K/UL (4.8-10.8)
[2019-06-04 10:39] LABS: PHOSPHORUS 7.1 MG/DL (2.5-4.9)
--- NOTE | 2019-06-04 10:53 | Diagnostic Imaging Report ---
Indication: Shortness of breath Technique: One view of the chest Comparison: June 01, 2019 Findings: Interim marked worsening of bilateral mid and lower lung infiltrates, particularly in the periphery. The heart remains borderline enlarged. No definite effusions. Impression: Marked worsening of bilateral infiltrates, likely pneumonia, over 3 days
--- NOTE | 2019-06-04 10:59 | Infectious Diseases Prog Note ---
Assessment/Plan Assessment/Plan IMPRESSION: 1. COVID-19 pneumonia 2. MRSA carrier. 3. Chronic kidney disease likely end-stage renal disease. 4. COPD. 5. Hypertension. 6. Anemia. 7. Hypothyroidism. 8. Hyperlipidemia. 9. Major depression. RECOMMENDATIONS: Discontinue Zithromax, Rocephin Continue hydroxychloroquine. Repeat COVID19 test Subjective ROS Limited/Unobtainable: Yes Constitutional: Denies: fever Neurologic: Reports: confusion, other - on restraint Allergies: Coded Allergies: No Known Allergies (Unverified , 05/28/19) Objective Vital Signs Last 24 Hour Vital Signs Date Time Temp Pulse Resp B/P (MAP) Pulse Ox O2 Delivery O2 Flow Rate FiO2 06/04/19 09:14 78 134/85 06/04/19 09:13 65 134/85 06/04/19 07:25 97.6 86 22 136/82 (100) 98 06/04/19 05:45 142/70 06/04/19 04:00 97.8 80 23 142/70 (94) 98 06/04/19 04:00 15.0 06/04/19 04:00 Non-Rebreather 15.0 06/04/19 04:00 75 06/04/19 00:00 106 06/04/19 00:00 15.0 06/04/19 00:00 98.6 95 23 148/75 (99) 98 06/04/19 00:00 Non-Rebreather 15.0 06/03/19 23:01 160/90 06/03/19 22:45 103 160/90 06/03/19 20:00 97.5 98 23 165/78 (107) 98 06/03/19 20:00 Non-Rebreather 15.0 06/03/19 16:00 90 06/03/19 16:00 Non-Rebreather 15.0 06/03/19 16:00 97.2 100 23 156/85 (108) 98 06/03/19 16:00 15.0 06/03/19 13:17 139/66 06/03/19 12:04 88 06/03/19 12:00 15.0 06/03/19 12:00 Non-Rebreather 15.0 06/03/19 12:00 97.2 78 23 139/66 (90) 98 Height (Feet): 6 Height (Inches): 1.00 Weight (Pounds): 207 HEENT: mucous membranes moist Respiratory/Chest: other - oxygen by rebreathing mask Cardiovascular: normal rate, other - R femoral HD line Abdomen: soft, non tender Extremities: no edema Neurologic/Psychiatric: disoriented Microbiology Date/Time Source Procedure Growth Status 06/01/19 18:30 Nasopharynx Coronavirus COVID-19 PCR ([facility]) - Final Complete Laboratory Tests Test 06/04/19 08:30 06/04/19 09:50 Arterial Blood pH 7.375 (7.350-7.450) Arterial Blood Partial Pressure CO2 28.1 mmHg (35.0-45.0) L Arterial Blood Partial Pressure O2 81.3 mmHg (75.0-100.0) Arterial Blood HCO3 16.1 mmol/L (22.0-26.0) *L Arterial Blood Oxygen Saturation 95.0 % (95-100) Arterial Blood Base Excess -8.2 (-2-2) L Kosta Test Positive White Blood Count 14.4 K/UL (4.8-10.8) H Red Blood Count 2.88 M/UL (4.70-6.10) L Hemoglobin 8.8 G/DL (14.2-18.0) L Hematocrit 25.6 % (42.0-52.0) L Mean Corpuscular Volume 89 FL (80-99) Mean Corpuscular Hemoglobin 30.5 PG (27.0-31.0) Mean Corpuscular Hemoglobin Concent 34.2 G/DL (32.0-36.0) Red Cell Distribution Width 13.2 % (11.6-14.8) Platelet Count 334 K/UL (150-450) Mean Platelet Volume 6.8 FL (6.5-10.1) Neutrophils (%) (Auto) % (45.0-75.0) Lymphocytes (%) (Auto) % (20.0-45.0) Monocytes (%) (Auto) % (1.0-10.0) Eosinophils (%) (Auto) % (0.0-3.0) Basophils (%) (Auto) % (0.0-2.0) Neutrophils % (Manual) Pending Lymphocytes % (Manual) Pending Platelet Estimate Pending Platelet Morphology Pending Sodium Level Pending Potassium Level Pending Chloride Level Pending Carbon Dioxide Level Pending Blood Urea Nitrogen Pending Creatinine Pending Estimat Glomerular Filtration Rate Pending Glucose Level Pending Calcium Level Pending Phosphorus Level 7.1 MG/DL (2.5-4.9) H Magnesium Level 2.2 MG/DL (1.8-2.4) Total Bilirubin Pending Aspartate Amino Transf (AST/SGOT) Pending Alanine Aminotransferase (ALT/SGPT) Pending Alkaline Phosphatase Pending Troponin I 0.058 ng/mL (0.000-0.056) C-Reactive Protein, Quantitative Pending Total Protein Pending Albumin Pending Globulin Pending Current Medications Medications (Trade) Dose Ordered Sig/Anthony Route PRN Reason Start Time Stop Time Status Last Admin Dose Admin Acetaminophen (Tylenol) 650 mg Q6HR PRN ORAL MILD PAIN/Temp >100.5 05/30/19 18:56 06/29/19 18:55 06/01/19 12:27 Albuterol Sulfate (Proventil MDI) 2 puff Q4HRT INH 06/01/19 19:00 08/30/19 18:59 06/04/19 07:28 Amlodipine Besylate (Norvasc) 10 mg DAILY ORAL 05/31/19 09:00 06/28/19 08:59 06/04/19 09:14 Azithromycin 500 mg/Dextrose 275 ml @ 275 mls/hr Q24HRS IV 05/31/19 17:45 06/04/19 18:44 06/03/19 18:51 Carvedilol (Coreg) 25 mg EVERY 12 HOURS ORAL 05/30/19 21:00 06/27/19 20:59 06/04/19 09:13 Ceftriaxone Sodium 1 gm/ Dextrose 55 ml @ 110 mls/hr Q24H IVPB 05/30/19 21:00 06/04/19 20:59 06/03/19 22:46 Divalproex Sodium (Depakote ER) 500 mg BEDTIME ORAL 06/01/19 21:00 07/01/19 20:59 06/02/19 21:12 Docusate Sodium (Colace) 100 mg THREE TIMES A DAY ORAL 05/31/19 09:00 06/28/19 12:59 06/04/19 09:11 Enoxaparin Sodium (Lovenox) 30 mg DAILY SUBQ 05/31/19 09:00 08/27/19 08:59 06/04/19 09:08 Epoetin Aftab (Epoetin Aftab(ESRD on dialysis)) 10,000 unit FRI-FRI-FRI SUBQ 06/02/19 21:00 08/31/19 20:59 06/02/19 21:13 Finasteride (Proscar) 5 mg DAILY ORAL 05/31/19 09:00 08/27/19 08:59 06/04/19 09:14 Haloperidol Lactate (Haldol) 5 mg Q6H PRN IM Agitation 05/30/19 18:59 07/12/19 18:58 06/02/19 16:45 Hydralazine HCl (Apresoline) 10 mg Q8HR ORAL 05/30/19 22:00 08/27/19 08:59 06/04/19 05:45 Hydroxychloroquine Sulfate (Plaquenil) 200 mg Q12HR ORAL 06/02/19 21:00 06/06/19 09:01 06/04/19 09:14 Pantoprazole (Protonix) 40 mg EVERY 12 HOURS ORAL 05/30/19 21:00 06/28/19 20:59 06/04/19 09:14 Salmeterol Xinafoate/ Fluticasone (Advair 100/50 Diskus) 1 puffs BID INH 05/31/19 09:00 08/27/19 08:59 06/04/19 09:11 Sevelamer Carbonate (Renvela) 1,600 mg THREE TIMES A DAY ORAL 06/01/19 09:00 08/30/19 08:59 06/04/19 09:14 Sodium Citrate (Bicitra) 30 ml EVERY 6 HOURS ORAL 05/31/19 00:00 06/28/19 11:59 06/04/19 05:45 Ted Leyva MD Jun 04, 2019 10:58
--- NOTE | 2019-06-04 11:26 | Nephrology Progress Note ---
Assessment/Plan Problem List: (1) CASSANDRA (acute kidney injury) (2) Anemia in chronic kidney disease (CKD) (3) HTN (hypertension) (4) Suspected COVID-19 virus infection Assessment Acute renal failure most likely superimposed on chronic kidney disease Suspected COVID-19 virus infection Possible Pneumonia, lymphopenia, elevated AST Cardiomegaly, possible CHF COPD Hypertension Anemia, most likely related to chronic kidney disease Plan Positive for COVID 19 Patient received dialysis June 01 and June 02 had some catheter malfunction and the dialysis was suboptimal Patient will have dialysis again tomorrow June 04 2 days chemistries still pending May 31 : I believe patient need dialysis treatment He however needs to competency assessment if can make decisions or not I will communicate with Dr. Mulligan Previously: Per pulmonary and ID advice Adjust blood pressure medication Renal diet Anemia work-up 2D echocardiogram refused Kidney ultrasound refused Jules catheter Urine studies Per orders Subjective ROS Limited/Unobtainable: No Constitutional: Reports: malaise, weakness Objective Objective Last 24 Hour Vital Signs Date Time Temp Pulse Resp B/P (MAP) Pulse Ox O2 Delivery O2 Flow Rate FiO2 06/04/19 09:14 78 134/85 06/04/19 09:13 65 134/85 06/04/19 08:00 15.0 06/04/19 07:25 97.6 86 22 136/82 (100) 98 06/04/19 05:45 142/70 06/04/19 04:00 97.8 80 23 142/70 (94) 98 06/04/19 04:00 15.0 06/04/19 04:00 Non-Rebreather 15.0 06/04/19 04:00 75 06/04/19 00:00 106 06/04/19 00:00 15.0 06/04/19 00:00 98.6 95 23 148/75 (99) 98 06/04/19 00:00 Non-Rebreather 15.0 06/03/19 23:01 160/90 06/03/19 22:45 103 160/90 06/03/19 20:00 97.5 98 23 165/78 (107) 98 06/03/19 20:00 Non-Rebreather 15.0 06/03/19 16:00 90 06/03/19 16:00 Non-Rebreather 15.0 06/03/19 16:00 97.2 100 23 156/85 (108) 98 06/03/19 16:00 15.0 06/03/19 13:17 139/66 06/03/19 12:04 88 06/03/19 12:00 15.0 06/03/19 12:00 Non-Rebreather 15.0 06/03/19 12:00 97.2 78 23 139/66 (90) 98 Intake and Output 06/03/19 06/04/19 19:00 07:00 Intake Total 341.25 ml 288.750 ml Output Total 2500 ml 425 ml Balance -2158.75 ml -136.250 ml Intake Oral 300 ml IV Total 41.25 ml 288.750 ml Output Urine Total 500 ml 425 ml Hemodialysis UF 2000 ml Laboratory Tests 06/04/19 08:30: Arterial Blood pH 7.375, Arterial Blood Partial Pressure CO2 28.1L, Arterial Blood Partial Pressure O2 81.3, Arterial Blood HCO3 16.1*L, Arterial Blood Oxygen Saturation 95.0, Arterial Blood Base Excess -8.2L, Kosta Test Positive 06/04/19 09:50: White Blood Count 14.4H, Red Blood Count 2.88L, Hemoglobin 8.8L, Hematocrit 25.6L, Mean Corpuscular Volume 89, Mean Corpuscular Hemoglobin 30.5, Mean Corpuscular Hemoglobin Concent 34.2, Red Cell Distribution Width 13.2, Platelet Count 334, Mean Platelet Volume 6.8, Neutrophils (%) (Auto) , Lymphocytes (%) ( Auto) , Monocytes (%) (Auto) , Eosinophils (%) (Auto) , Basophils (%) (Auto) , Neutrophils % (Manual) [Pending], Lymphocytes % (Manual) [Pending], Platelet Estimate [Pending], Platelet Morphology [Pending], Sodium Level [Pending], Potassium Level [Pending], Chloride Level [Pending], Carbon Dioxide Level [ Pending], Blood Urea Nitrogen [Pending], Creatinine [Pending], Estimat Glomerular Filtration Rate [Pending], Glucose Level [Pending], Calcium Level [ Pending], Phosphorus Level 7.1H, Magnesium Level 2.2, Total Bilirubin [Pending] , Aspartate Amino Transf (AST/SGOT) [Pending], Alanine Aminotransferase (ALT/ SGPT) [Pending], Alkaline Phosphatase [Pending], Troponin I 0.058H, C-Reactive Protein, Quantitative [Pending], Total Protein [Pending], Albumin [Pending], Globulin [Pending] Height (Feet): 6 Height (Inches): 1.00 Weight (Pounds): 207 General Appearance: no apparent distress, lethargic Cardiovascular: tachycardia - Rate 80s Respiratory/Chest: decreased breath sounds Abdomen: distended Objective No change Mic Cole MD Jun 04, 2019 11:26
[2019-06-04 11:47] LABS: ANION GAP 26 mmol/L (5-15); BLOOD UREA NITROGEN 74 mg/dL (7-18); CALCIUM 8.8 MG/DL (8.5-10.1); CARBON DIOXIDE 16 MMOL/L (21-32); CHLORIDE 104 MMOL/L (98-107); CREATININE 7.7 MG/DL (0.55-1.30); POTASSIUM 3.6 MMOL/L (3.5-5.1); SODIUM 145 MMOL/L (136-145)
[2019-06-04 11:52] LABS: ALANINE AMINOTRANSFERASE 21 U/L (12-78); ALBUMIN/GLOBULIN RATIO 0.3 (1.0-2.7); ALKALINE PHOSPHATASE 82 U/L (46-116); ASPARTATE AMINO TRANSFERASE 36 U/L (15-37); BILIRUBIN,TOTAL 0.3 MG/DL (0.2-1.0)
--- NOTE | 2019-06-04 13:32 | Surgery Progress Note ---
Surgery Progress Note Subjective Procedure Performed right femoral temporary HD catheter insertion Additional Comments doing well had HD plan for HD tomorrow again line checked. one suture out and other in. line stable dressings changed Objective Last 24 Hour Vital Signs Date Time Temp Pulse Resp B/P (MAP) Pulse Ox O2 Delivery O2 Flow Rate FiO2 06/04/19 12:00 80 06/04/19 12:00 15.0 06/04/19 11:30 98.0 78 22 135/74 (94) 92 06/04/19 09:14 78 134/85 06/04/19 09:13 65 134/85 06/04/19 08:00 77 06/04/19 08:00 15.0 06/04/19 07:25 97.6 86 22 136/82 (100) 98 06/04/19 05:45 142/70 06/04/19 04:00 97.8 80 23 142/70 (94) 98 06/04/19 04:00 15.0 06/04/19 04:00 Non-Rebreather 15.0 06/04/19 04:00 75 06/04/19 00:00 106 06/04/19 00:00 15.0 06/04/19 00:00 98.6 95 23 148/75 (99) 98 06/04/19 00:00 Non-Rebreather 15.0 06/03/19 23:01 160/90 06/03/19 22:45 103 160/90 06/03/19 20:00 97.5 98 23 165/78 (107) 98 06/03/19 20:00 Non-Rebreather 15.0 06/03/19 16:00 90 06/03/19 16:00 Non-Rebreather 15.0 06/03/19 16:00 97.2 100 23 156/85 (108) 98 06/03/19 16:00 15.0 I&O Intake and Output 06/03/19 06/04/19 19:00 07:00 Intake Total 341.25 ml 288.750 ml Output Total 2500 ml 425 ml Balance -2158.75 ml -136.250 ml Intake Oral 300 ml IV Total 41.25 ml 288.750 ml Output Urine Total 500 ml 425 ml Hemodialysis UF 2000 ml Dressing: other Wound: other Drains: other Cardiovascular: RSR Respiratory: decreased breath sounds Abdomen: soft, non-tender, present bowel sounds Extremities: no tenderness, no cyanosis Laboratory Tests Test 06/04/19 08:30 06/04/19 09:50 Arterial Blood pH 7.375 (7.350-7.450) Arterial Blood Partial Pressure CO2 28.1 mmHg (35.0-45.0) L Arterial Blood Partial Pressure O2 81.3 mmHg (75.0-100.0) Arterial Blood HCO3 16.1 mmol/L (22.0-26.0) *L Arterial Blood Oxygen Saturation 95.0 % (95-100) Arterial Blood Base Excess -8.2 (-2-2) L Kosta Test Positive White Blood Count 14.4 K/UL (4.8-10.8) H Red Blood Count 2.88 M/UL (4.70-6.10) L Hemoglobin 8.8 G/DL (14.2-18.0) L Hematocrit 25.6 % (42.0-52.0) L Mean Corpuscular Volume 89 FL (80-99) Mean Corpuscular Hemoglobin 30.5 PG (27.0-31.0) Mean Corpuscular Hemoglobin Concent 34.2 G/DL (32.0-36.0) Red Cell Distribution Width 13.2 % (11.6-14.8) Platelet Count 334 K/UL (150-450) Mean Platelet Volume 6.8 FL (6.5-10.1) Neutrophils (%) (Auto) % (45.0-75.0) Lymphocytes (%) (Auto) % (20.0-45.0) Monocytes (%) (Auto) % (1.0-10.0) Eosinophils (%) (Auto) % (0.0-3.0) Basophils (%) (Auto) % (0.0-2.0) Differential Total Cells Counted 100 Neutrophils % (Manual) 88 % (45-75) H Lymphocytes % (Manual) 8 % (20-45) L Monocytes % (Manual) 4 % (1-10) Eosinophils % (Manual) 0 % (0-3) Basophils % (Manual) 0 % (0-2) Band Neutrophils 0 % (0-8) Platelet Estimate Adequate Platelet Morphology Normal Hypochromasia 2+ Anisocytosis 1+ Sodium Level 145 MMOL/L (136-145) Potassium Level 3.6 MMOL/L (3.5-5.1) Chloride Level 104 MMOL/L (98-107) Carbon Dioxide Level 16 MMOL/L (21-32) L Anion Gap 26 mmol/L (5-15) H Blood Urea Nitrogen 74 mg/dL (7-18) H Creatinine 7.7 MG/DL (0.55-1.30) H Estimat Glomerular Filtration Rate 7.1 mL/min (>60) Glucose Level 151 MG/DL (74-106) H Calcium Level 8.8 MG/DL (8.5-10.1) Phosphorus Level 7.1 MG/DL (2.5-4.9) H Magnesium Level 2.2 MG/DL (1.8-2.4) Total Bilirubin 0.3 MG/DL (0.2-1.0) Aspartate Amino Transf (AST/SGOT) 36 U/L (15-37) Alanine Aminotransferase (ALT/SGPT) 21 U/L (12-78) Alkaline Phosphatase 82 U/L (46-116) Troponin I 0.058 ng/mL (0.000-0.056) C-Reactive Protein, Quantitative 31.9 mg/dL (0.00-0.90) H Total Protein 8.7 G/DL (6.4-8.2) H Albumin 2.0 G/DL (3.4-5.0) L Globulin 6.7 g/dL Albumin/Globulin Ratio 0.3 (1.0-2.7) L Plan Problems: (1) Suspected COVID-19 virus infection (2) HTN (hypertension) (3) CASSANDRA (acute kidney injury) Assessment & Plan: Needs urgent HD needs access patient okay and consented see note will follow with recs (4) Anemia in chronic kidney disease (CKD) (5) Anemia (6) Renal failure (7) Suspected COVID-19 virus infection (8) COVID-19 Assessment & Plan: COVID + c diff negative febrile leukocytosis renal insufficiency see above cont resp care Rx as per Yaniv Clarke Jun 04, 2019 13:32
--- NOTE | 2019-06-04 14:20 | Operative Note - PDOC ---
Operative Note Operative Note Date of Operation/Procedure: Jun 04, 2019 Pre-op Diagnosis: COVID + renal insufficiency Alena Procedure: right femoral temporary HD catheter removal Post-op Diagnosis: same as pre-op Surgeon: dario mast md Specimen: none Complications: none Condition: stable Estimated Blood Loss: minimal Drains: none Implant(s) used?: No Indications for Procedure patient dislodged right fem catheter when agitated needs removal and replacement of new line for HD Description of Procedure meds given prior patient in supine position. suture partially in place and removed. catheter out. pressure held until hemostasis. dressings applied new line placed on left see note Dario Mast Jun 04, 2019 14:20
--- NOTE | 2019-06-04 14:22 | Surgery Progress Note ---
Surgery Progress Note Subjective Procedure Performed left femoral temporary HD catheter placement Additional Comments agitated removed line see notes Objective Last 24 Hour Vital Signs Date Time Temp Pulse Resp B/P (MAP) Pulse Ox O2 Delivery O2 Flow Rate FiO2 06/04/19 12:00 80 06/04/19 12:00 15.0 06/04/19 11:30 98.0 78 22 135/74 (94) 92 06/04/19 09:14 78 134/85 06/04/19 09:13 65 134/85 06/04/19 08:00 77 06/04/19 08:00 15.0 06/04/19 07:25 97.6 86 22 136/82 (100) 98 06/04/19 05:45 142/70 06/04/19 04:00 97.8 80 23 142/70 (94) 98 06/04/19 04:00 15.0 06/04/19 04:00 Non-Rebreather 15.0 06/04/19 04:00 75 06/04/19 00:00 106 06/04/19 00:00 15.0 06/04/19 00:00 98.6 95 23 148/75 (99) 98 06/04/19 00:00 Non-Rebreather 15.0 06/03/19 23:01 160/90 06/03/19 22:45 103 160/90 06/03/19 20:00 97.5 98 23 165/78 (107) 98 06/03/19 20:00 Non-Rebreather 15.0 06/03/19 16:00 90 06/03/19 16:00 Non-Rebreather 15.0 06/03/19 16:00 97.2 100 23 156/85 (108) 98 06/03/19 16:00 15.0 I&O Intake and Output 06/03/19 06/04/19 19:00 07:00 Intake Total 341.25 ml 288.750 ml Output Total 2500 ml 425 ml Balance -2158.75 ml -136.250 ml Intake Oral 300 ml IV Total 41.25 ml 288.750 ml Output Urine Total 500 ml 425 ml Hemodialysis UF 2000 ml Dressing: other Wound: other Drains: other Cardiovascular: RSR Respiratory: decreased breath sounds Abdomen: non-tender, present bowel sounds Extremities: no edema, no tenderness, no cyanosis Laboratory Tests Test 06/04/19 08:30 06/04/19 09:50 Arterial Blood pH 7.375 (7.350-7.450) Arterial Blood Partial Pressure CO2 28.1 mmHg (35.0-45.0) L Arterial Blood Partial Pressure O2 81.3 mmHg (75.0-100.0) Arterial Blood HCO3 16.1 mmol/L (22.0-26.0) *L Arterial Blood Oxygen Saturation 95.0 % (95-100) Arterial Blood Base Excess -8.2 (-2-2) L Kosta Test Positive White Blood Count 14.4 K/UL (4.8-10.8) H Red Blood Count 2.88 M/UL (4.70-6.10) L Hemoglobin 8.8 G/DL (14.2-18.0) L Hematocrit 25.6 % (42.0-52.0) L Mean Corpuscular Volume 89 FL (80-99) Mean Corpuscular Hemoglobin 30.5 PG (27.0-31.0) Mean Corpuscular Hemoglobin Concent 34.2 G/DL (32.0-36.0) Red Cell Distribution Width 13.2 % (11.6-14.8) Platelet Count 334 K/UL (150-450) Mean Platelet Volume 6.8 FL (6.5-10.1) Neutrophils (%) (Auto) % (45.0-75.0) Lymphocytes (%) (Auto) % (20.0-45.0) Monocytes (%) (Auto) % (1.0-10.0) Eosinophils (%) (Auto) % (0.0-3.0) Basophils (%) (Auto) % (0.0-2.0) Differential Total Cells Counted 100 Neutrophils % (Manual) 88 % (45-75) H Lymphocytes % (Manual) 8 % (20-45) L Monocytes % (Manual) 4 % (1-10) Eosinophils % (Manual) 0 % (0-3) Basophils % (Manual) 0 % (0-2) Band Neutrophils 0 % (0-8) Platelet Estimate Adequate Platelet Morphology Normal Hypochromasia 2+ Anisocytosis 1+ Sodium Level 145 MMOL/L (136-145) Potassium Level 3.6 MMOL/L (3.5-5.1) Chloride Level 104 MMOL/L (98-107) Carbon Dioxide Level 16 MMOL/L (21-32) L Anion Gap 26 mmol/L (5-15) H Blood Urea Nitrogen 74 mg/dL (7-18) H Creatinine 7.7 MG/DL (0.55-1.30) H Estimat Glomerular Filtration Rate 7.1 mL/min (>60) Glucose Level 151 MG/DL (74-106) H Calcium Level 8.8 MG/DL (8.5-10.1) Phosphorus Level 7.1 MG/DL (2.5-4.9) H Magnesium Level 2.2 MG/DL (1.8-2.4) Total Bilirubin 0.3 MG/DL (0.2-1.0) Aspartate Amino Transf (AST/SGOT) 36 U/L (15-37) Alanine Aminotransferase (ALT/SGPT) 21 U/L (12-78) Alkaline Phosphatase 82 U/L (46-116) Troponin I 0.058 ng/mL (0.000-0.056) C-Reactive Protein, Quantitative 31.9 mg/dL (0.00-0.90) H Total Protein 8.7 G/DL (6.4-8.2) H Albumin 2.0 G/DL (3.4-5.0) L Globulin 6.7 g/dL Albumin/Globulin Ratio 0.3 (1.0-2.7) L Plan Problems: (1) Suspected COVID-19 virus infection (2) HTN (hypertension) (3) CASSANDRA (acute kidney injury) Assessment & Plan: Needs urgent HD needs access patient okay and consented see note will follow with recs new line placed discussed with team and nephrology (4) Anemia in chronic kidney disease (CKD) (5) Anemia (6) Renal failure (7) Suspected COVID-19 virus infection (8) COVID-19 Assessment & Plan: COVID + c diff negative febrile leukocytosis renal insufficiency see above cont resp care Rx as per Yaniv Clarke Jun 04, 2019 14:22
--- NOTE | 2019-06-04 14:22 | Operative Note - PDOC ---
Operative Note Operative Note Date of Operation/Procedure: Jun 04, 2019 Pre-op Diagnosis: COVID + renal insufficiency Alena Procedure: left femoral temporary HD catheter placement Post-op Diagnosis: same as pre-op Surgeon: dario mast md Anesthesia: local Specimen: none Complications: none Condition: stable Estimated Blood Loss: minimal Drains: none Implant(s) used?: No Indications for Procedure patient removed right fem line when agitated. needs HD. left fem placement necessary and indicated Description of Procedure Patient is comfortable at the bedside in supine position. He is on respiratory support and monitored at the bedside. He is desaturating but stable. Facemask with under percent O2. left groin is prepped draped in sterile surgical fashion. Local anesthetic was infiltrated after anatomic landmarks were identified. With third stick, given agitation, the left femoral vein was cannulated and venous blood noted. Guidewire placed and the needle removed. Small skin incision was made around the guidewire and dilators were used. A temporary hemodialysis catheter 13 [place] was inserted over the guidewire and guidewire removed and discarded. Line was sutured in place. All 3 ports flushed and aspirated without complication. Venous blood noted. Good flow on the dialysis venous ports. Tertiary line port okay to use. Okay to begin dialysis discussed with dialysis team and nurse. All COVID precautions were taken during the placement of this port. Monitor closely to ensure functionality and removal when necessary Dario Mast Jun 04, 2019 14:22
--- NOTE | 2019-06-04 14:35 | Cardiac Electrophysiology PN ---
Assessment/Plan Assessment/Plan 1. Elevated troponin. Initial troponin on May 27 was negative. On May 30, it was also negative; however, on June 01, it was elevated at 0.074. Repeat 0.05. The patient does not have any chest pain. This could be due to renal failure. At this time, I will treat the patient medically with aspirin and Coreg. We will also get an EKG to evaluate prolonged QT as the patient is on Plaquenil as well as azithromycin. 2. Hypertension. The patient is on Coreg 25 mg b.i.d., hydralazine 10 mg every 8 hours, and amlodipine 10 mg daily as well as hemodialysis. 3. End-stage renal disease, on hemodialysis.On dialysis per Dr. Cole. 4. COVID-19 positive pneumonia and lymphopenia. Fu by Dr. Ted Leyva and Dr. Mckeon. 5. MRSA carrier. 6. COPD. 7. Anemia. 8. Depression. Subjective Subjective Pulled out his RFV HD catheter. Dr Mast just put in a new LFV Kamlesh in Objective Last 24 Hour Vital Signs Date Time Temp Pulse Resp B/P (MAP) Pulse Ox O2 Delivery O2 Flow Rate FiO2 06/04/19 12:00 80 06/04/19 12:00 15.0 06/04/19 11:30 98.0 78 22 135/74 (94) 92 06/04/19 09:14 78 134/85 06/04/19 09:13 65 134/85 06/04/19 08:00 77 06/04/19 08:00 15.0 06/04/19 07:25 97.6 86 22 136/82 (100) 98 06/04/19 05:45 142/70 06/04/19 04:00 97.8 80 23 142/70 (94) 98 06/04/19 04:00 15.0 06/04/19 04:00 Non-Rebreather 15.0 06/04/19 04:00 75 06/04/19 00:00 106 06/04/19 00:00 15.0 06/04/19 00:00 98.6 95 23 148/75 (99) 98 06/04/19 00:00 Non-Rebreather 15.0 06/03/19 23:01 160/90 06/03/19 22:45 103 160/90 06/03/19 20:00 97.5 98 23 165/78 (107) 98 06/03/19 20:00 Non-Rebreather 15.0 06/03/19 16:00 90 06/03/19 16:00 Non-Rebreather 15.0 06/03/19 16:00 97.2 100 23 156/85 (108) 98 06/03/19 16:00 15.0 Intake and Output 06/03/19 06/04/19 19:00 07:00 Intake Total 341.25 ml 288.750 ml Output Total 2500 ml 425 ml Balance -2158.75 ml -136.250 ml Intake Oral 300 ml IV Total 41.25 ml 288.750 ml Output Urine Total 500 ml 425 ml Hemodialysis UF 2000 ml Laboratory Tests Test 06/04/19 08:30 06/04/19 09:50 Arterial Blood pH 7.375 (7.350-7.450) Arterial Blood Partial Pressure CO2 28.1 mmHg (35.0-45.0) L Arterial Blood Partial Pressure O2 81.3 mmHg (75.0-100.0) Arterial Blood HCO3 16.1 mmol/L (22.0-26.0) *L Arterial Blood Oxygen Saturation 95.0 % (95-100) Arterial Blood Base Excess -8.2 (-2-2) L Kosta Test Positive White Blood Count 14.4 K/UL (4.8-10.8) H Red Blood Count 2.88 M/UL (4.70-6.10) L Hemoglobin 8.8 G/DL (14.2-18.0) L Hematocrit 25.6 % (42.0-52.0) L Mean Corpuscular Volume 89 FL (80-99) Mean Corpuscular Hemoglobin 30.5 PG (27.0-31.0) Mean Corpuscular Hemoglobin Concent 34.2 G/DL (32.0-36.0) Red Cell Distribution Width 13.2 % (11.6-14.8) Platelet Count 334 K/UL (150-450) Mean Platelet Volume 6.8 FL (6.5-10.1) Neutrophils (%) (Auto) % (45.0-75.0) Lymphocytes (%) (Auto) % (20.0-45.0) Monocytes (%) (Auto) % (1.0-10.0) Eosinophils (%) (Auto) % (0.0-3.0) Basophils (%) (Auto) % (0.0-2.0) Differential Total Cells Counted 100 Neutrophils % (Manual) 88 % (45-75) H Lymphocytes % (Manual) 8 % (20-45) L Monocytes % (Manual) 4 % (1-10) Eosinophils % (Manual) 0 % (0-3) Basophils % (Manual) 0 % (0-2) Band Neutrophils 0 % (0-8) Platelet Estimate Adequate Platelet Morphology Normal Hypochromasia 2+ Anisocytosis 1+ Sodium Level 145 MMOL/L (136-145) Potassium Level 3.6 MMOL/L (3.5-5.1) Chloride Level 104 MMOL/L (98-107) Carbon Dioxide Level 16 MMOL/L (21-32) L Anion Gap 26 mmol/L (5-15) H Blood Urea Nitrogen 74 mg/dL (7-18) H Creatinine 7.7 MG/DL (0.55-1.30) H Estimat Glomerular Filtration Rate 7.1 mL/min (>60) Glucose Level 151 MG/DL (74-106) H Calcium Level 8.8 MG/DL (8.5-10.1) Phosphorus Level 7.1 MG/DL (2.5-4.9) H Magnesium Level 2.2 MG/DL (1.8-2.4) Total Bilirubin 0.3 MG/DL (0.2-1.0) Aspartate Amino Transf (AST/SGOT) 36 U/L (15-37) Alanine Aminotransferase (ALT/SGPT) 21 U/L (12-78) Alkaline Phosphatase 82 U/L (46-116) Troponin I 0.058 ng/mL (0.000-0.056) C-Reactive Protein, Quantitative 31.9 mg/dL (0.00-0.90) H Total Protein 8.7 G/DL (6.4-8.2) H Albumin 2.0 G/DL (3.4-5.0) L Globulin 6.7 g/dL Albumin/Globulin Ratio 0.3 (1.0-2.7) L Microbiology Date/Time Source Procedure Growth Status 06/01/19 18:30 Nasopharynx Coronavirus COVID-19 PCR ([facility]) - Final Complete Objective HEAD AND NECK: Showed no JVD. LUNGS: Decreased breath sounds. CARDIOVASCULAR: Shows regular S1 and S2. Tachycardic. ABDOMEN: Soft. EXTREMITIES: No pitting edema. New Left FV Gio Engle MD Jun 04, 2019 14:35
[2019-06-04] MEDS ORDERED: Tubing IV Secondary IV ONE (14:48)
[2019-06-04] MEDS ORDERED: NS 275ml ONE (14:48)
[2019-06-04 14:58] LABS: HEMATOCRIT 28.6 % (42.0-52.0); HEMOGLOBIN 9.9 G/DL (14.2-18.0); MEAN CORPUSCULAR VOLUME 88 FL (80-99); PLATELET COUNT 310 K/UL (150-450); RED BLOOD COUNT 3.25 M/UL (4.70-6.10); RED CELL DISTRIBUTION WIDTH 13.3 % (11.6-14.8); WHITE BLOOD COUNT 12.5 K/UL (4.8-10.8)
[2019-06-04 15:06] LABS: ANION GAP 21 mmol/L (5-15); BLOOD UREA NITROGEN 77 mg/dL (7-18); CALCIUM 8.4 MG/DL (8.5-10.1); CARBON DIOXIDE 20 MMOL/L (21-32); CHLORIDE 104 MMOL/L (98-107); CREATININE 7.8 MG/DL (0.55-1.30); POTASSIUM 3.3 MMOL/L (3.5-5.1); SODIUM 145 MMOL/L (136-145)
[2019-06-04 15:11] LABS: ALANINE AMINOTRANSFERASE 16 U/L (12-78); ALBUMIN 1.9 G/DL (3.4-5.0); ALBUMIN/GLOBULIN RATIO 0.3 (1.0-2.7); ALKALINE PHOSPHATASE 81 U/L (46-116); ASPARTATE AMINO TRANSFERASE 32 U/L (15-37); BILIRUBIN,TOTAL 0.2 MG/DL (0.2-1.0)
[2019-06-04] MEDS ORDERED: Epoetin Alfa-EPBX (NON ESRD) 2000 units/ml vial SUBQ SCH ×2 (21:00)
--- NOTE | 2019-06-04 21:13 | General Progress Note ---
Assessment/Plan Problem List: (1) Anemia ICD Codes: D64.9 - Anemia, unspecified SNOMED: 217154132 (2) Renal failure ICD Codes: N19 - Unspecified kidney failure SNOMED: 54341910 (3) Suspected COVID-19 virus infection ICD Codes: R68.89 - Other general symptoms and signs SNOMED: 171416935 (4) HTN (hypertension) ICD Codes: I10 - Essential (primary) hypertension SNOMED: 06513413 (5) CASSANDRA (acute kidney injury) ICD Codes: N17.9 - Acute kidney failure, unspecified SNOMED: 0378968, 48608479 (6) Anemia in chronic kidney disease (CKD) ICD Codes: N18.9 - Chronic kidney disease, unspecified; D63.1 - Anemia in chronic kidney disease SNOMED: 018075165 (7) Suspected COVID-19 virus infection ICD Codes: R68.89 - Other general symptoms and signs SNOMED: 935414472 Status: progressing Assessment/Plan: worsening renal failure on top of cri needs emergent HD , fluid over load supportive therapy oxygen pna respiratory getting worse Subjective ROS Limited/Unobtainable: Yes Allergies: Coded Allergies: No Known Allergies (Unverified , 05/28/19) Objective Last 24 Hour Vital Signs Date Time Temp Pulse Resp B/P (MAP) Pulse Ox O2 Delivery O2 Flow Rate FiO2 06/04/19 19:30 99.1 103 20 157/100 (119) 95 06/04/19 16:00 15.0 06/04/19 16:00 98.8 86 20 146/89 (108) 97 06/04/19 16:00 96 06/04/19 16:00 Non-Rebreather 15.0 06/04/19 14:00 128/71 06/04/19 12:00 Non-Rebreather 15.0 06/04/19 12:00 80 06/04/19 12:00 15.0 06/04/19 11:30 98.0 78 22 135/74 (94) 92 06/04/19 09:14 78 134/85 06/04/19 09:13 65 134/85 06/04/19 08:00 Non-Rebreather 15.0 06/04/19 08:00 77 06/04/19 08:00 15.0 4/24/20 07:25 97.6 86 22 136/82 (100) 98 06/04/19 05:45 142/70 06/04/19 04:00 97.8 80 23 142/70 (94) 98 06/04/19 04:00 15.0 06/04/19 04:00 Non-Rebreather 15.0 06/04/19 04:00 75 06/04/19 00:00 106 06/04/19 00:00 15.0 06/04/19 00:00 98.6 95 23 148/75 (99) 98 06/04/19 00:00 Non-Rebreather 15.0 06/03/19 23:01 160/90 06/03/19 22:45 103 160/90 Intake and Output 06/03/19 06/04/19 19:00 07:00 Intake Total 341.25 ml 288.750 ml Output Total 2500 ml 425 ml Balance -2158.75 ml -136.250 ml Intake Oral 300 ml IV Total 41.25 ml 288.750 ml Output Urine Total 500 ml 425 ml Hemodialysis UF 2000 ml Laboratory Tests 06/04/19 08:30: Arterial Blood pH 7.375, Arterial Blood Partial Pressure CO2 28.1L, Arterial Blood Partial Pressure O2 81.3, Arterial Blood HCO3 16.1*L, Arterial Blood Oxygen Saturation 95.0, Arterial Blood Base Excess -8.2L, Kosta Test Positive 06/04/19 09:50: White Blood Count 14.4H, Red Blood Count 2.88L, Hemoglobin 8.8L, Hematocrit 25.6L, Mean Corpuscular Volume 89, Mean Corpuscular Hemoglobin 30.5, Mean Corpuscular Hemoglobin Concent 34.2, Red Cell Distribution Width 13.2, Platelet Count 334, Mean Platelet Volume 6.8, Neutrophils (%) (Auto) , Lymphocytes (%) ( Auto) , Monocytes (%) (Auto) , Eosinophils (%) (Auto) , Basophils (%) (Auto) , Differential Total Cells Counted 100, Neutrophils % (Manual) 88H, Lymphocytes % (Manual) 8L, Monocytes % (Manual) 4, Eosinophils % (Manual) 0, Basophils % ( Manual) 0, Band Neutrophils 0, Platelet Estimate Adequate, Platelet Morphology Normal, Hypochromasia 2+, Anisocytosis 1+, Sodium Level 145, Potassium Level 3.6 , Chloride Level 104, Carbon Dioxide Level 16L, Anion Gap 26H, Blood Urea Nitrogen 74H, Creatinine 7.7H, Estimat Glomerular Filtration Rate 7.1, Glucose Level 151H, Calcium Level 8.8, Phosphorus Level 7.1H, Magnesium Level 2.2, Total Bilirubin 0.3, Aspartate Amino Transf (AST/SGOT) 36, Alanine Aminotransferase (ALT/SGPT) 21, Alkaline Phosphatase 82, Troponin I 0.058H, C- Reactive Protein, Quantitative 31.9H, Total Protein 8.7H, Albumin 2.0L, Globulin 6.7, Albumin/Globulin Ratio 0.3L 06/04/19 14:20: White Blood Count 12.5H, Red Blood Count 3.25L, Hemoglobin 9.9L, Hematocrit 28.6L, Mean Corpuscular Volume 88, Mean Corpuscular Hemoglobin 30.6, Mean Corpuscular Hemoglobin Concent 34.7, Red Cell Distribution Width 13.3, Platelet Count 310, Mean Platelet Volume 6.1L, Neutrophils (%) (Auto) , Lymphocytes (%) ( Auto) , Monocytes (%) (Auto) , Eosinophils (%) (Auto) , Basophils (%) (Auto) , Differential Total Cells Counted 100, Neutrophils % (Manual) 90H, Lymphocytes % (Manual) 5L, Monocytes % (Manual) 3, Eosinophils % (Manual) 0, Basophils % ( Manual) 0, Band Neutrophils 0, Platelet Estimate Adequate, Platelet Morphology Normal, Hypochromasia 1+, Anisocytosis 1+, Sodium Level 145, Potassium Level 3.3L, Chloride Level 104, Carbon Dioxide Level 20L, Anion Gap 21H, Blood Urea Nitrogen 77H, Creatinine 7.8H, Estimat Glomerular Filtration Rate 7.0, Glucose Level 201H, Calcium Level 8.4L, Total Bilirubin 0.2, Aspartate Amino Transf (AST /SGOT) 32, Alanine Aminotransferase (ALT/SGPT) 16, Alkaline Phosphatase 81, Total Protein 8.1, Albumin 1.9L, Globulin 6.2, Albumin/Globulin Ratio 0.3L, Metamyelocytes % 1H, Myelocytes % 1H Height (Feet): 6 Height (Inches): 1.00 Weight (Pounds): 207 Karishma Mulligan MD Jun 04, 2019 21:13
[2019-06-04] MEDS: Depakote ER 500mg tab ORAL SCH (21:15)
[2019-06-04] MEDS: Epoetin Alfa-EPBX(ESRD on dialysis)10,000 unit/ml vial SUBQ SCH (21:16)
[2019-06-05] VITALS: BP 150/73
--- NOTE | 2019-06-05 02:04 | Pulmonology Progress Note ---
Assessment/Plan Assessment/Plan Pulmonary Progress Note HPI: Patient is a 68 year old man, long-term resident, admitted c/o shortness of breath, cough, noted to have Covid 19 Pneumonia. 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 Impression: COVID-19 virus infection Pneumonia Volume overload Cardiomegaly Lymphopenia Elevated AST COPD Chronic Kidney Disease, worsening renal function Hypertension Worsening anemia Plan: Antibiotics per ID O2 PRN [employer] Medications 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 Monitor cultures/viral studies PPX Hemodialysis per Renal Psychiatry following Laboratory Tests Noted: CXR: Hypoventilatory exam, interstitial changes, cardiomegaly, worseing infiltrates Subjective ROS Limited/Unobtainable: No Constitutional: Denies: fever Respiratory: Reports: dry cough, shortness of breath Psychiatric: Reports: other - refuses labs Allergies: Coded Allergies: No Known Allergies (Unverified , 05/28/19) Objective Last 24 Hour Vital Signs Date Time Temp Pulse Resp B/P (MAP) Pulse Ox O2 Delivery O2 Flow Rate FiO2 06/05/19 00:00 Non-Rebreather 15.0 06/05/19 00:00 98.4 90 26 150/73 (98) 98 06/05/19 00:00 15.0 06/04/19 23:51 88 06/04/19 21:17 146/92 06/04/19 21:15 91 146/92 06/04/19 20:00 101 06/04/19 20:00 15.0 06/04/19 20:00 99.1 103 20 157/100 (119) 95 06/04/19 20:00 Non-Rebreather 15.0 06/04/19 19:30 99.1 103 20 157/100 (119) 95 06/04/19 16:00 15.0 06/04/19 16:00 98.8 86 20 146/89 (108) 97 06/04/19 16:00 96 06/04/19 16:00 Non-Rebreather 15.0 06/04/19 14:00 128/71 06/04/19 12:00 Non-Rebreather 15.0 06/04/19 12:00 80 06/04/19 12:00 15.0 06/04/19 11:30 98.0 78 22 135/74 (94) 92 06/04/19 09:14 78 134/85 06/04/19 09:13 65 134/85 06/04/19 08:00 Non-Rebreather 15.0 06/04/19 08:00 77 06/04/19 08:00 15.0 06/04/19 07:25 97.6 86 22 136/82 (100) 98 06/04/19 05:45 142/70 06/04/19 04:00 97.8 80 23 142/70 (94) 98 06/04/19 04:00 15.0 06/04/19 04:00 Non-Rebreather 15.0 06/04/19 04:00 75 Intake and Output 06/04/19 06/05/19 19:00 07:00 Output Total 600 ml Balance -600 ml Output Urine Total 600 ml # Bowel Movements 1 General Appearance: no acute distress HEENT: mucous membranes moist Abdomen: soft, non tender Extremities: no edema Skin: no rash Neurologic/Psychiatric: disoriented Laboratory Tests 06/04/19 08:30: Arterial Blood pH 7.375, Arterial Blood Partial Pressure CO2 28.1L, Arterial Blood Partial Pressure O2 81.3, Arterial Blood HCO3 16.1*L, Arterial Blood Oxygen Saturation 95.0, Arterial Blood Base Excess -8.2L, Kosta Test Positive 06/04/19 09:50: White Blood Count 14.4H, Red Blood Count 2.88L, Hemoglobin 8.8L, Hematocrit 25.6L, Mean Corpuscular Volume 89, Mean Corpuscular Hemoglobin 30.5, Mean Corpuscular Hemoglobin Concent 34.2, Red Cell Distribution Width 13.2, Platelet Count 334, Mean Platelet Volume 6.8, Neutrophils (%) (Auto) , Lymphocytes (%) ( Auto) , Monocytes (%) (Auto) , Eosinophils (%) (Auto) , Basophils (%) (Auto) , Differential Total Cells Counted 100, Neutrophils % (Manual) 88H, Lymphocytes % (Manual) 8L, Monocytes % (Manual) 4, Eosinophils % (Manual) 0, Basophils % ( Manual) 0, Band Neutrophils 0, Platelet Estimate Adequate, Platelet Morphology Normal, Hypochromasia 2+, Anisocytosis 1+, Sodium Level 145, Potassium Level 3.6 , Chloride Level 104, Carbon Dioxide Level 16L, Anion Gap 26H, Blood Urea Nitrogen 74H, Creatinine 7.7H, Estimat Glomerular Filtration Rate 7.1, Glucose Level 151H, Calcium Level 8.8, Phosphorus Level 7.1H, Magnesium Level 2.2, Total Bilirubin 0.3, Aspartate Amino Transf (AST/SGOT) 36, Alanine Aminotransferase (ALT/SGPT) 21, Alkaline Phosphatase 82, Troponin I 0.058H, C- Reactive Protein, Quantitative 31.9H, Total Protein 8.7H, Albumin 2.0L, Globulin 6.7, Albumin/Globulin Ratio 0.3L 06/04/19 14:20: White Blood Count 12.5H, Red Blood Count 3.25L, Hemoglobin 9.9L, Hematocrit 28.6L, Mean Corpuscular Volume 88, Mean Corpuscular Hemoglobin 30.6, Mean Corpuscular Hemoglobin Concent 34.7, Red Cell Distribution Width 13.3, Platelet Count 310, Mean Platelet Volume 6.1L, Neutrophils (%) (Auto) , Lymphocytes (%) ( Auto) , Monocytes (%) (Auto) , Eosinophils (%) (Auto) , Basophils (%) (Auto) , Differential Total Cells Counted 100, Neutrophils % (Manual) 90H, Lymphocytes % (Manual) 5L, Monocytes % (Manual) 3, Eosinophils % (Manual) 0, Basophils % ( Manual) 0, Band Neutrophils 0, Platelet Estimate Adequate, Platelet Morphology Normal, Hypochromasia 1+, Anisocytosis 1+, Sodium Level 145, Potassium Level 3.3L, Chloride Level 104, Carbon Dioxide Level 20L, Anion Gap 21H, Blood Urea Nitrogen 77H, Creatinine 7.8H, Estimat Glomerular Filtration Rate 7.0, Glucose Level 201H, Calcium Level 8.4L, Total Bilirubin 0.2, Aspartate Amino Transf (AST /SGOT) 32, Alanine Aminotransferase (ALT/SGPT) 16, Alkaline Phosphatase 81, Total Protein 8.1, Albumin 1.9L, Globulin 6.2, Albumin/Globulin Ratio 0.3L, Metamyelocytes % 1H, Myelocytes % 1H Current Medications Medications (Trade) Dose Ordered Sig/Anthony Route PRN Reason Start Time Stop Time Status Last Admin Dose Admin Acetaminophen (Tylenol) 650 mg Q6HR PRN ORAL MILD PAIN/Temp >100.5 05/30/19 18:56 06/29/19 18:55 06/01/19 12:27 Albuterol Sulfate (Proventil MDI) 2 puff Q4HRT INH 06/01/19 19:00 08/30/19 18:59 06/04/19 19:39 Amlodipine Besylate (Norvasc) 10 mg DAILY ORAL 05/31/19 09:00 06/28/19 08:59 06/04/19 09:14 Carvedilol (Coreg) 25 mg EVERY 12 HOURS ORAL 05/30/19 21:00 06/27/19 20:59 06/04/19 21:15 Divalproex Sodium (Depakote ER) 500 mg BEDTIME ORAL 06/01/19 21:00 07/01/19 20:59 06/04/19 21:15 Docusate Sodium (Colace) 100 mg THREE TIMES A DAY ORAL 05/31/19 09:00 06/28/19 12:59 06/04/19 09:11 Enoxaparin Sodium (Lovenox) 30 mg DAILY SUBQ 05/31/19 09:00 08/27/19 08:59 06/04/19 09:08 Epoetin Aftab (Epoetin Aftab(ESRD on dialysis)) 10,000 unit FRI-FRI-FRI SUBQ 06/02/19 21:00 08/31/19 20:59 06/04/19 21:16 Finasteride (Proscar) 5 mg DAILY ORAL 05/31/19 09:00 08/27/19 08:59 06/04/19 09:14 Haloperidol Lactate (Haldol) 5 mg Q6H PRN IM Agitation 05/30/19 18:59 07/12/19 18:58 06/02/19 16:45 Hydralazine HCl (Apresoline) 10 mg Q8HR ORAL 05/30/19 22:00 08/27/19 08:59 06/04/19 21:17 Hydroxychloroquine Sulfate (Plaquenil) 200 mg Q12HR ORAL 06/02/19 21:00 06/06/19 09:01 06/04/19 21:15 Olanzapine (ZyPREXA) 5 mg Q6H PRN ORAL Agitation 06/04/19 17:00 07/19/19 16:59 Pantoprazole (Protonix) 40 mg EVERY 12 HOURS ORAL 05/30/19 21:00 06/28/19 20:59 06/04/19 21:16 Salmeterol Xinafoate/ Fluticasone (Advair 100/50 Diskus) 1 puffs BID INH 05/31/19 09:00 08/27/19 08:59 06/04/19 18:11 Sevelamer Carbonate (Renvela) 1,600 mg THREE TIMES A DAY ORAL 06/01/19 09:00 08/30/19 08:59 06/04/19 18:11 Sodium Citrate (Bicitra) 30 ml EVERY 6 HOURS ORAL 05/31/19 00:00 06/28/19 11:59 06/04/19 18:11 Arturo Mckeon MD Jun 05, 2019 02:04
[2019-06-05 04:00] VITALS: BP 134/84
[2019-06-05] MEDS: Albuterol 90mcg Inhaler 8gm INH SCH ×6 (04:15→22:06)
[2019-06-05] MEDS: HydrALAZINE 10mg Tab ORAL SCH ×3 (05:28→21:52)
[2019-06-05] MEDS: Sodium Citrate 30ml ORAL SCH ×3 (05:28→18:00)
[2019-06-05 08:00] VITALS: BP 133/78
[2019-06-05] MEDS: Enoxaparin 30mg Inj SUBQ SCH (08:35)
[2019-06-05] MEDS: Wixela 100/50 Inhaler - 60 dose INH SCH ×2 (08:53→18:00)
[2019-06-05] MEDS: Carvedilol 25mg Tab ORAL SCH ×2 (08:54→21:52)
[2019-06-05] MEDS: Docusate 100mg cap ORAL SCH ×3 (08:55→18:00)
[2019-06-05] MEDS ORDERED: NS 275ml ONE (09:54)
--- NOTE | 2019-06-05 10:09 | Nephrology Progress Note ---
Assessment/Plan Problem List: (1) CASSANDRA (acute kidney injury) (2) Anemia in chronic kidney disease (CKD) (3) HTN (hypertension) (4) Suspected COVID-19 virus infection Assessment Acute renal failure most likely superimposed on chronic kidney disease Suspected COVID-19 virus infection Possible Pneumonia, lymphopenia, elevated AST Cardiomegaly, possible CHF COPD Hypertension Anemia, most likely related to chronic kidney disease Plan Positive for COVID 19 Patient received dialysis June 01 and June 02 , Patient pulled out his femoral catheter yesterday June 03 which was reinserted by Dr. Mast Patient will have dialysis again today June 04 No labs for today Meanwhile continue management per ID, pulmonary , and psych. Previously May 31 : I believe patient need dialysis treatment He however needs to competency assessment if can make decisions or not I will communicate with Dr. Mulligan Previously: Per pulmonary and ID advice Adjust blood pressure medication Renal diet Anemia work-up 2D echocardiogram refused Kidney ultrasound refused Jules catheter Urine studies Per orders Subjective ROS Limited/Unobtainable: No Constitutional: Reports: malaise Objective Objective Last 24 Hour Vital Signs Date Time Temp Pulse Resp B/P (MAP) Pulse Ox O2 Delivery O2 Flow Rate FiO2 06/05/19 08:55 89 133/78 06/05/19 08:54 89 133/78 06/05/19 08:00 98.1 89 21 133/78 (96) 97 06/05/19 07:55 91 06/05/19 05:28 139/84 06/05/19 04:00 15.0 06/05/19 04:00 97.7 90 24 134/84 (101) 98 06/05/19 04:00 Non-Rebreather 15.0 06/05/19 03:58 83 06/05/19 00:00 Non-Rebreather 15.0 06/05/19 00:00 98.4 90 26 150/73 (98) 98 06/05/19 00:00 15.0 06/04/19 23:51 88 06/04/19 21:17 146/92 06/04/19 21:15 91 146/92 06/04/19 20:00 101 06/04/19 20:00 15.0 06/04/19 20:00 99.1 103 20 157/100 (119) 95 06/04/19 20:00 Non-Rebreather 15.0 06/04/19 19:30 99.1 103 20 157/100 (119) 95 06/04/19 16:00 15.0 06/04/19 16:00 98.8 86 20 146/89 (108) 97 06/04/19 16:00 96 06/04/19 16:00 Non-Rebreather 15.0 06/04/19 14:00 128/71 06/04/19 12:00 Non-Rebreather 15.0 06/04/19 12:00 80 06/04/19 12:00 15.0 06/04/19 11:30 98.0 78 22 135/74 (94) 92 Intake and Output 06/04/19 06/05/19 19:00 07:00 Intake Total 30 ml Output Total 600 ml 250 ml Balance -600 ml -220 ml Intake Oral 30 ml Output Urine Total 600 ml 250 ml # Bowel Movements 1 1 Laboratory Tests 06/04/19 14:20: White Blood Count 12.5H, Red Blood Count 3.25L, Hemoglobin 9.9L, Hematocrit 28.6L, Mean Corpuscular Volume 88, Mean Corpuscular Hemoglobin 30.6, Mean Corpuscular Hemoglobin Concent 34.7, Red Cell Distribution Width 13.3, Platelet Count 310, Mean Platelet Volume 6.1L, Neutrophils (%) (Auto) , Lymphocytes (%) ( Auto) , Monocytes (%) (Auto) , Eosinophils (%) (Auto) , Basophils (%) (Auto) , Differential Total Cells Counted 100, Neutrophils % (Manual) 90H, Lymphocytes % (Manual) 5L, Monocytes % (Manual) 3, Eosinophils % (Manual) 0, Basophils % ( Manual) 0, Metamyelocytes % 1H, Myelocytes % 1H, Band Neutrophils 0, Platelet Estimate Adequate, Platelet Morphology Normal, Hypochromasia 1+, Anisocytosis 1+ , Sodium Level 145, Potassium Level 3.3L, Chloride Level 104, Carbon Dioxide Level 20L, Anion Gap 21H, Blood Urea Nitrogen 77H, Creatinine 7.8H, Estimat Glomerular Filtration Rate 7.0, Glucose Level 201H, Calcium Level 8.4L, Total Bilirubin 0.2, Aspartate Amino Transf (AST/SGOT) 32, Alanine Aminotransferase ( ALT/SGPT) 16, Alkaline Phosphatase 81, Total Protein 8.1, Albumin 1.9L, Globulin 6.2, Albumin/Globulin Ratio 0.3L Height (Feet): 6 Height (Inches): 1.00 Weight (Pounds): 207 General Appearance: no apparent distress, other - Agitated at times Cardiovascular: tachycardia Objective No change Mic Cole MD Jun 05, 2019 10:09
[2019-06-05] MEDS ORDERED: Cathflo Alteplase 2mg Inj INJ SCH ×2 (10:15)
--- NOTE | 2019-06-05 15:25 | Cardiac Electrophysiology PN ---
Assessment/Plan Assessment/Plan 1. Elevated troponin. Initial troponin on May 27 was negative. On May 30, it was also negative; however, on June 01, it was elevated at 0.074. Repeat 0.05. The patient does not have any chest pain. This could be due to renal failure.Treat medically with aspirin and Coreg. EKG showd QT 493 on Plaquenil as well as azithromycin. 2. Hypertension. On b.i.d., hydralazine 10 tid, amlodipine 10 mg daily as well as hemodialysis. 3. End-stage renal disease, on hemodialysis.On dialysis per Dr. Cole. 4. COVID-19 positive pneumonia and lymphopenia. Fu by Dr. Ted Leyva and Dr. Mckeon. 5. MRSA carrier. 6. COPD. 7. Anemia. 8. Depression. 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 Mast put in a new LFV Kamlesh in. No new events. Still in Covid isolation Objective Last 24 Hour Vital Signs Date Time Temp Pulse Resp B/P (MAP) Pulse Ox O2 Delivery O2 Flow Rate FiO2 06/05/19 12:00 Non-Rebreather 15.0 06/05/19 12:00 15.0 06/05/19 11:46 85 06/05/19 08:55 89 133/78 06/05/19 08:54 89 133/78 06/05/19 08:00 98.1 89 21 133/78 (96) 97 06/05/19 08:00 15.0 06/05/19 08:00 Non-Rebreather 15.0 06/05/19 07:55 91 06/05/19 05:28 139/84 06/05/19 04:00 15.0 06/05/19 04:00 97.7 90 24 134/84 (101) 98 06/05/19 04:00 Non-Rebreather 15.0 06/05/19 03:58 83 06/05/19 00:00 Non-Rebreather 15.0 06/05/19 00:00 98.4 90 26 150/73 (98) 98 06/05/19 00:00 15.0 06/04/19 23:51 88 06/04/19 21:17 146/92 06/04/19 21:15 91 146/92 06/04/19 20:00 101 06/04/19 20:00 15.0 06/04/19 20:00 99.1 103 20 157/100 (119) 95 06/04/19 20:00 Non-Rebreather 15.0 06/04/19 19:30 99.1 103 20 157/100 (119) 95 06/04/19 16:00 15.0 06/04/19 16:00 98.8 86 20 146/89 (108) 97 06/04/19 16:00 96 06/04/19 16:00 Non-Rebreather 15.0 Intake and Output 06/04/19 06/05/19 19:00 07:00 Intake Total 30 ml Output Total 600 ml 250 ml Balance -600 ml -220 ml Intake Oral 30 ml Output Urine Total 600 ml 250 ml # Bowel Movements 1 1 Objective HEAD AND NECK: Showed no JVD. LUNGS: Decreased breath sounds. CARDIOVASCULAR: Shows regular S1 and S2. Tachycardic. ABDOMEN: Soft. EXTREMITIES: No pitting edema. New Left FV Gio Engle MD Jun 05, 2019 15:25
[2019-06-05 16:00] VITALS: BP 100/69
--- NOTE | 2019-06-05 19:34 | Surgery Progress Note ---
Surgery Progress Note Subjective Procedure Performed left femoral temporary HD catheter placement Additional Comments informed new HD catheter was given TPA discussed with nursing staff this is a new placed catheter that was very well functional when placed yesterday. Objective Last 24 Hour Vital Signs Date Time Temp Pulse Resp B/P (MAP) Pulse Ox O2 Delivery O2 Flow Rate FiO2 06/05/19 15:13 73 06/05/19 12:00 Non-Rebreather 15.0 06/05/19 12:00 15.0 06/05/19 11:46 85 06/05/19 08:55 89 133/78 06/05/19 08:54 89 133/78 06/05/19 08:00 98.1 89 21 133/78 (96) 97 06/05/19 08:00 15.0 06/05/19 08:00 Non-Rebreather 15.0 06/05/19 07:55 91 06/05/19 05:28 139/84 06/05/19 04:00 15.0 06/05/19 04:00 97.7 90 24 134/84 (101) 98 06/05/19 04:00 Non-Rebreather 15.0 06/05/19 03:58 83 06/05/19 00:00 Non-Rebreather 15.0 06/05/19 00:00 98.4 90 26 150/73 (98) 98 06/05/19 00:00 15.0 06/04/19 23:51 88 06/04/19 21:17 146/92 06/04/19 21:15 91 146/92 06/04/19 20:00 101 06/04/19 20:00 15.0 06/04/19 20:00 99.1 103 20 157/100 (119) 95 06/04/19 20:00 Non-Rebreather 15.0 I&O Intake and Output 06/04/19 06/05/19 19:00 07:00 Intake Total 30 ml Output Total 600 ml 250 ml Balance -600 ml -220 ml Intake Oral 30 ml Output Urine Total 600 ml 250 ml # Bowel Movements 1 1 Dressing: other Wound: other Drains: other Cardiovascular: RSR Respiratory: decreased breath sounds Abdomen: soft, non-tender, present bowel sounds Extremities: no edema, no tenderness, no cyanosis Plan Problems: (1) Suspected COVID-19 virus infection (2) HTN (hypertension) (3) CASSANDRA (acute kidney injury) Assessment & Plan: Needs urgent HD needs access patient okay and consented see note will follow with recs new line placed discussed with team and nephrology HD line functional when checked has TPA now please use appropriately (4) Anemia in chronic kidney disease (CKD) (5) Anemia (6) Renal failure (7) Suspected COVID-19 virus infection (8) COVID-19 Assessment & Plan: COVID + c diff negative febrile leukocytosis renal insufficiency see above cont resp care Rx as per Yaniv Clarke Jun 05, 2019 19:34
[2019-06-05 20:00] VITALS: BP 138/90
--- NOTE | 2019-06-05 20:02 | General Progress Note ---
Assessment/Plan Problem List: (1) Anemia ICD Codes: D64.9 - Anemia, unspecified SNOMED: 844016521 (2) Renal failure ICD Codes: N19 - Unspecified kidney failure SNOMED: 18894399 (3) Suspected COVID-19 virus infection ICD Codes: R68.89 - Other general symptoms and signs SNOMED: 397533715 (4) HTN (hypertension) ICD Codes: I10 - Essential (primary) hypertension SNOMED: 94702106 (5) CASSANDRA (acute kidney injury) ICD Codes: N17.9 - Acute kidney failure, unspecified SNOMED: 5491219, 04959140 (6) Anemia in chronic kidney disease (CKD) ICD Codes: N18.9 - Chronic kidney disease, unspecified; D63.1 - Anemia in chronic kidney disease SNOMED: 109419441 (7) Suspected COVID-19 virus infection ICD Codes: R68.89 - Other general symptoms and signs SNOMED: 087761202 Status: progressing Assessment/Plan: worsening renal failure on top of cri hypokalemia diaylsis per dr bailey not hypoxic fluid overload Subjective ROS Limited/Unobtainable: Yes Allergies: Coded Allergies: No Known Allergies (Unverified , 05/28/19) Objective Last 24 Hour Vital Signs Date Time Temp Pulse Resp B/P (MAP) Pulse Ox O2 Delivery O2 Flow Rate FiO2 06/05/19 16:00 Non-Rebreather 15.0 06/05/19 16:00 97.9 80 22 100/69 (79) 97 06/05/19 16:00 15.0 06/05/19 15:13 73 06/05/19 12:00 Non-Rebreather 15.0 06/05/19 12:00 15.0 06/05/19 11:46 85 06/05/19 08:55 89 133/78 06/05/19 08:54 89 133/78 06/05/19 08:00 98.1 89 21 133/78 (96) 97 06/05/19 08:00 15.0 06/05/19 08:00 Non-Rebreather 15.0 06/05/19 07:55 91 06/05/19 05:28 139/84 06/05/19 04:00 15.0 06/05/19 04:00 97.7 90 24 134/84 (101) 98 06/05/19 04:00 Non-Rebreather 15.0 06/05/19 03:58 83 06/05/19 00:00 Non-Rebreather 15.0 06/05/19 00:00 98.4 90 26 150/73 (98) 98 06/05/19 00:00 15.0 06/04/19 23:51 88 06/04/19 21:17 146/92 06/04/19 21:15 91 146/92 Intake and Output 06/04/19 06/05/19 19:00 07:00 Intake Total 30 ml Output Total 600 ml 250 ml Balance -600 ml -220 ml Intake Oral 30 ml Output Urine Total 600 ml 250 ml # Bowel Movements 1 1 Height (Feet): 6 Height (Inches): 1.00 Weight (Pounds): 207 Karishma Mulligan MD Jun 05, 2019 20:02
[2019-06-05] MEDS: Depakote ER 500mg tab ORAL SCH (21:51)
--- NOTE | 2019-06-05 22:16 | Psych Consult Progress Note ---
Psychiatry Progress Note Psychiatry Progress Note Subjective the pt is more confused and is easily agitated. the pt refusing care and yelling. Medications Current Medications Medications (Trade) Dose Ordered Sig/Anthony Route PRN Reason Start Time Stop Time Status Last Admin Dose Admin Acetaminophen (Tylenol) 650 mg Q6HR PRN ORAL MILD PAIN/Temp >100.5 05/30/19 18:56 06/29/19 18:55 06/01/19 12:27 Albuterol Sulfate (Proventil MDI) 2 puff Q4HRT INH 06/01/19 19:00 08/30/19 18:59 06/05/19 22:06 Amlodipine Besylate (Norvasc) 10 mg DAILY ORAL 05/31/19 09:00 06/28/19 08:59 06/05/19 08:55 Carvedilol (Coreg) 25 mg EVERY 12 HOURS ORAL 05/30/19 21:00 06/27/19 20:59 06/05/19 21:52 Divalproex Sodium (Depakote ER) 500 mg BEDTIME ORAL 06/01/19 21:00 07/01/19 20:59 06/05/19 21:51 Docusate Sodium (Colace) 100 mg THREE TIMES A DAY ORAL 05/31/19 09:00 06/28/19 12:59 06/05/19 08:55 Enoxaparin Sodium (Lovenox) 30 mg DAILY SUBQ 05/31/19 09:00 08/27/19 08:59 06/05/19 08:35 Epoetin Aftab (Epoetin Aftab(ESRD on dialysis)) 10,000 unit FRI-FRI-FRI SUBQ 06/02/19 21:00 08/31/19 20:59 06/04/19 21:16 Finasteride (Proscar) 5 mg DAILY ORAL 05/31/19 09:00 08/27/19 08:59 06/05/19 08:55 Haloperidol Lactate (Haldol) 5 mg Q6H PRN IM Agitation 05/30/19 18:59 07/12/19 18:58 06/02/19 16:45 Hydralazine HCl (Apresoline) 10 mg Q8HR ORAL 05/30/19 22:00 08/27/19 08:59 06/05/19 21:52 Hydroxychloroquine Sulfate (Plaquenil) 200 mg Q12HR ORAL 06/02/19 21:00 06/06/19 09:01 06/05/19 21:52 Pantoprazole (Protonix) 40 mg EVERY 12 HOURS ORAL 05/30/19 21:00 06/28/19 20:59 06/05/19 21:51 Salmeterol Xinafoate/ Fluticasone (Advair 100/50 Diskus) 1 puffs BID INH 05/31/19 09:00 08/27/19 08:59 06/05/19 08:53 Sevelamer Carbonate (Renvela) 1,600 mg THREE TIMES A DAY ORAL 06/01/19 09:00 08/30/19 08:59 06/05/19 08:54 Sodium Citrate (Bicitra) 30 ml BID ORAL 06/05/19 18:00 06/28/19 11:59 Allergies: Coded Allergies: No Known Allergies (Unverified , 05/28/19) Objective Data Height (Feet): 6 Height (Inches): 1.00 Weight (Pounds): 207 General Appearance: alert, confused, agitated Assessment/Plan [place] I: MDD Acute encephalopathy. Status: progressing Guicho Pimentel MD Jun 05, 2019 22:16
--- NOTE | 2019-06-05 22:30 | Progress Note ---
DATE: 06/04/2019 SUBJECTIVE: The patient pulled out his femoral cast, severely agitated. He was unmanageable. The patient is easily agitated and was not redirectable, more confused. Dr. Mulligan authorized to prescribe psychotropic medicine. The patient was given Zyprexa due to severe agitation risk. The . MENTAL STATUS EXAMINATION: The patient confused now, yelling, screaming, agitated, and mood is angry. Affect is flat. There is a paucity of thought content. Thought content, no suicidal or homicidal ideation. ASSESSMENT: Acute encephalopathy. PLAN: DC the Zyprexa as the patient calm down. Guicho Pimentel M.D. DR: CAMACHO JOB#: [id number] CC:
--- NOTE | 2019-06-05 23:39 | Pulmonology Progress Note ---
Assessment/Plan Assessment/Plan Pulmonary Progress Note HPI: Patient is a 68 year old man, halfway resident, admitted c/o shortness of breath, cough, noted to have Covid 19 Pneumonia. Past Medical History: COPD, CKD, Hypertension, Anemia Has new Kamlesh catheter, Psychiatry following Remains on NRB, worsening infiltrates, ABG noted Allergies: No Known Allergies Improving Pulmonary Status on HD Physical Exam Vital Signs Noted WDWN, no distress HEENT: NCAT,moist mm Chest: Occasional rhonchi Heart: HS1, HS2, RRR Abdomen: SNTND, no masses Extremities: Well perfused, mild edema [employer] WORK[employer]: No focal signs, no seizures, responsive to commands. 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 Monitor cultures/viral studies PPX Hemodialysis per Renal Psychiatry following Laboratory Tests Noted: CXR: Hypoventilatory exam, interstitial changes, cardiomegaly, worseing infiltrates Subjective ROS Limited/Unobtainable: No Constitutional: Denies: fever Respiratory: Reports: dry cough, shortness of breath Psychiatric: Reports: other - refuses labs Allergies: Coded Allergies: No Known Allergies (Unverified , 05/28/19) Objective Last 24 Hour Vital Signs Date Time Temp Pulse Resp B/P (MAP) Pulse Ox O2 Delivery O2 Flow Rate FiO2 06/05/19 21:52 138/92 06/05/19 21:52 91 138/92 06/05/19 20:00 Non-Rebreather 15.0 06/05/19 20:00 98.4 91 24 138/90 (106) 99 06/05/19 20:00 15.0 06/05/19 19:20 80 06/05/19 16:00 Non-Rebreather 15.0 06/05/19 16:00 97.9 80 22 100/69 (79) 97 06/05/19 16:00 15.0 06/05/19 15:13 73 06/05/19 12:00 Non-Rebreather 15.0 06/05/19 12:00 15.0 06/05/19 11:46 85 06/05/19 08:55 89 133/78 06/05/19 08:54 89 133/78 06/05/19 08:00 98.1 89 21 133/78 (96) 97 06/05/19 08:00 15.0 06/05/19 08:00 Non-Rebreather 15.0 06/05/19 07:55 91 06/05/19 05:28 139/84 06/05/19 04:00 15.0 06/05/19 04:00 97.7 90 24 134/84 (101) 98 06/05/19 04:00 Non-Rebreather 15.0 06/05/19 03:58 83 06/05/19 00:00 Non-Rebreather 15.0 06/05/19 00:00 98.4 90 26 150/73 (98) 98 06/05/19 00:00 15.0 06/04/19 23:51 88 Intake and Output 06/04/19 06/05/19 19:00 07:00 Intake Total 30 ml Output Total 600 ml 250 ml Balance -600 ml -220 ml Intake Oral 30 ml Output Urine Total 600 ml 250 ml # Bowel Movements 1 1 General Appearance: no acute distress HEENT: mucous membranes moist Abdomen: soft, non tender Extremities: no edema Skin: no rash Neurologic/Psychiatric: disoriented Current Medications Medications (Trade) Dose Ordered Sig/Anthony Route PRN Reason Start Time Stop Time Status Last Admin Dose Admin Acetaminophen (Tylenol) 650 mg Q6HR PRN ORAL MILD PAIN/Temp >100.5 05/30/19 18:56 06/29/19 18:55 06/01/19 12:27 Albuterol Sulfate (Proventil MDI) 2 puff Q4HRT INH 06/01/19 19:00 08/30/19 18:59 06/05/19 22:06 Amlodipine Besylate (Norvasc) 10 mg DAILY ORAL 05/31/19 09:00 06/28/19 08:59 06/05/19 08:55 Carvedilol (Coreg) 25 mg EVERY 12 HOURS ORAL 05/30/19 21:00 06/27/19 20:59 06/05/19 21:52 Divalproex Sodium (Depakote ER) 500 mg BEDTIME ORAL 06/01/19 21:00 07/01/19 20:59 06/05/19 21:51 Docusate Sodium (Colace) 100 mg THREE TIMES A DAY ORAL 05/31/19 09:00 06/28/19 12:59 06/05/19 08:55 Enoxaparin Sodium (Lovenox) 30 mg DAILY SUBQ 05/31/19 09:00 08/27/19 08:59 06/05/19 08:35 Epoetin Aftab (Epoetin Aftab(ESRD on dialysis)) 10,000 unit SUBQ 06/02/19 21:00 08/31/19 20:59 06/04/19 21:16 Finasteride (Proscar) 5 mg DAILY ORAL 05/31/19 09:00 08/27/19 08:59 06/05/19 08:55 Haloperidol Lactate (Haldol) 5 mg Q6H PRN IM Agitation 05/30/19 18:59 07/12/19 18:58 06/02/19 16:45 Hydralazine HCl (Apresoline) 10 mg Q8HR ORAL 05/30/19 22:00 08/27/19 08:59 06/05/19 21:52 Hydroxychloroquine Sulfate (Plaquenil) 200 mg Q12HR ORAL 06/02/19 21:00 06/06/19 09:01 06/05/19 21:52 Pantoprazole (Protonix) 40 mg EVERY 12 HOURS ORAL 05/30/19 21:00 06/28/19 20:59 06/05/19 21:51 Salmeterol Xinafoate/ Fluticasone (Advair 100/50 Diskus) 1 puffs BID INH 05/31/19 09:00 08/27/19 08:59 06/05/19 08:53 Sevelamer Carbonate (Renvela) 1,600 mg THREE TIMES A DAY ORAL 06/01/19 09:00 08/30/19 08:59 06/05/19 08:54 Sodium Citrate (Bicitra) 30 ml BID ORAL 06/05/19 18:00 06/28/19 11:59 Arturo Mckeon MD Jun 05, 2019 23:39
[2019-06-06] VITALS (12 sets, daily range): BP systolic 71–132; BP diastolic 35–75
[2019-06-06] MEDS: Albuterol 90mcg Inhaler 8gm INH SCH ×6 (03:42→23:58)
[2019-06-06] MEDS: HydrALAZINE 10mg Tab ORAL SCH ×4 (05:12→22:00)
[2019-06-06 06:00] LABS: HEMATOCRIT 22.9 % (42.0-52.0); HEMOGLOBIN 7.9 G/DL (14.2-18.0); MEAN CORPUSCULAR VOLUME 91 FL (80-99); PLATELET COUNT 268 K/UL (150-450); RED BLOOD COUNT 2.53 M/UL (4.70-6.10); RED CELL DISTRIBUTION WIDTH 13.3 % (11.6-14.8); WHITE BLOOD COUNT 21.6 K/UL (4.8-10.8)
[2019-06-06 06:28] LABS: ALANINE AMINOTRANSFERASE 17 U/L (12-78); ALBUMIN/GLOBULIN RATIO 0.3 (1.0-2.7); ALKALINE PHOSPHATASE 93 U/L (46-116); ANION GAP 22 mmol/L (5-15); ASPARTATE AMINO TRANSFERASE 36 U/L (15-37); BILIRUBIN,TOTAL 0.2 MG/DL (0.2-1.0); BLOOD UREA NITROGEN 92 mg/dL (7-18); CARBON DIOXIDE 19 MMOL/L (21-32); CHLORIDE 110 MMOL/L (98-107); PHOSPHORUS 7.5 MG/DL (2.5-4.9); POTASSIUM 4.2 MMOL/L (3.5-5.1); SODIUM 151 MMOL/L (136-145)
--- NOTE | 2019-06-06 06:45 | Hematology/Onc Progress Note ---
Assessment/Plan Assessment/Plan Assessment and Recs: # Anemia of chronic disease, likely related ot underlying kidney disease --> hgb trend 9-->8-->7.3-->7.9 --> transfuse as needed, hgb goal >7 --> no evidence of hemolysis --> peripheral smear has been reviewed --> epogen started tid # Leukocytosis likely related to suspected COVID-19 virus infection --> on abx and plaquenil --> trend smear as needed --> initially 4-->11-->14.5-->21 --> pulm is aware # Lymphopenia --> likely related to covid19 # Possible Pneumonia # Cardiomegaly # Transaminitis with Elevated AST # COPD # Chronic Kidney Disease --> per renal hd # Hypertension # Dvt ppx lovenox Appreciate consultation and dw Rn Subjective Constitutional: Denies: no symptoms, chills, fever, malaise, weakness, other HEENT: Denies: no symptoms, eye pain, blurred vision, tearing, double vision, ear pain, ear discharge, nose pain, nose congestion, throat pain, throat swelling, mouth pain, mouth swelling, other Cardiovascular: Denies: no symptoms, chest pain, edema, irregular heart rate, lightheadedness, palpitations, syncope, other Respiratory: Denies: no symptoms, cough, shortness of breath, SOB with excertion, SOB at rest, sputum, wheezing, other Gastrointestinal/Abdominal: Denies: no symptoms, abdomen distended, abdominal pain, black stools, tarry stools, blood in stool, constipated, diarrhea, difficulty swallowing, nausea, poor appetite, poor fluid intake, rectal bleeding , vomiting, other Genitourinary: Denies: no symptoms, burning, discharge, frequency, flank pain, hematuria, incontinence, pain, urgency, other Neurologic/Psychiatric: Denies: no symptoms, anxiety, depressed, emotional problems, headache, numbness, paresthesia, pre-existing deficit, seizure, tingling, tremors, weakness, other Endocrine: Denies: no symptoms, excessive sweating, flushing, intolerance to cold, intolerance to heat, increased hunger, increased thirst, increased urine, unexplained weight gain, unexplained weight loss, other Hematologic/Lymphatic: Denies: no symptoms, anemia, easy bleeding, easy bruising, adenopathy, other Allergies: Coded Allergies: No Known Allergies (Unverified , 05/28/19) Subjective 06/01 extremely agitated, not allowing labs draws, no night sweats, cbc ordered 06/02 confused, restraints, on abx and plaquenil, hgb 7.9, nrb 15 L 06/03 is with nonrebreather, but not compliant, remains confused 06/05 no bleeding, labs noted, no major bleeding, otherwise comfortable Objective Objective Current Medications Medications (Trade) Dose Ordered Sig/Anthony Route PRN Reason Start Time Stop Time Status Last Admin Dose Admin Acetaminophen (Tylenol) 650 mg Q6HR PRN ORAL MILD PAIN/Temp >100.5 05/30/19 18:56 06/29/19 18:55 06/01/19 12:27 Albuterol Sulfate (Proventil MDI) 2 puff Q4HRT INH 06/01/19 19:00 08/30/19 18:59 06/06/19 05:55 Amlodipine Besylate (Norvasc) 10 mg DAILY ORAL 05/31/19 09:00 06/28/19 08:59 06/05/19 08:55 Carvedilol (Coreg) 25 mg EVERY 12 HOURS ORAL 05/30/19 21:00 06/27/19 20:59 06/05/19 21:52 Divalproex Sodium (Depakote ER) 500 mg BEDTIME ORAL 06/01/19 21:00 07/01/19 20:59 06/05/19 21:51 Docusate Sodium (Colace) 100 mg THREE TIMES A DAY ORAL 05/31/19 09:00 06/28/19 12:59 06/05/19 08:55 Enoxaparin Sodium (Lovenox) 30 mg DAILY SUBQ 05/31/19 09:00 08/27/19 08:59 06/05/19 08:35 Epoetin Aftab (Epoetin Aftab(ESRD on dialysis)) 10,000 unit FRI-FRI-FRI SUBQ 06/02/19 21:00 08/31/19 20:59 06/04/19 21:16 Finasteride (Proscar) 5 mg DAILY ORAL 05/31/19 09:00 08/27/19 08:59 06/05/19 08:55 Haloperidol Lactate (Haldol) 5 mg Q6H PRN IM Agitation 05/30/19 18:59 07/12/19 18:58 06/02/19 16:45 Hydralazine HCl (Apresoline) 10 mg Q8HR ORAL 05/30/19 22:00 08/27/19 08:59 06/05/19 21:52 Hydroxychloroquine Sulfate (Plaquenil) 200 mg Q12HR ORAL 06/02/19 21:00 06/06/19 09:01 06/05/19 21:52 Pantoprazole (Protonix) 40 mg EVERY 12 HOURS ORAL 05/30/19 21:00 06/28/19 20:59 06/05/19 21:51 Salmeterol Xinafoate/ Fluticasone (Advair 100/50 Diskus) 1 puffs BID INH 05/31/19 09:00 08/27/19 08:59 06/05/19 08:53 Sevelamer Carbonate (Renvela) 1,600 mg THREE TIMES A DAY ORAL 06/01/19 09:00 08/30/19 08:59 06/05/19 08:54 Sodium Citrate (Bicitra) 30 ml BID ORAL 06/05/19 18:00 06/28/19 11:59 Last 24 Hour Vital Signs Date Time Temp Pulse Resp B/P (MAP) Pulse Ox O2 Delivery O2 Flow Rate FiO2 06/06/19 04:00 Non-Rebreather 15.0 06/06/19 04:00 98.2 91 22 116/66 (83) 98 06/06/19 04:00 15.0 06/06/19 03:50 87 06/06/19 00:00 Non-Rebreather 15.0 06/06/19 00:00 97.9 95 22 113/68 (83) 98 06/06/19 00:00 15.0 06/05/19 23:54 82 06/05/19 21:52 138/92 06/05/19 21:52 91 138/92 06/05/19 20:00 Non-Rebreather 15.0 06/05/19 20:00 98.4 91 24 138/90 (106) 99 06/05/19 20:00 15.0 06/05/19 19:20 80 06/05/19 16:00 Non-Rebreather 15.0 06/05/19 16:00 97.9 80 22 100/69 (79) 97 06/05/19 16:00 15.0 06/05/19 15:13 73 06/05/19 12:00 Non-Rebreather 15.0 06/05/19 12:00 15.0 06/05/19 11:46 85 06/05/19 08:55 89 133/78 06/05/19 08:54 89 133/78 06/05/19 08:00 98.1 89 21 133/78 (96) 97 06/05/19 08:00 15.0 06/05/19 08:00 Non-Rebreather 15.0 06/05/19 07:55 91 06/05/19 05:28 139/84 06/05/19 04:00 15.0 06/05/19 04:00 97.7 90 24 134/84 (101) 98 06/05/19 04:00 Non-Rebreather 15.0 06/05/19 03:58 83 06/05/19 00:00 Non-Rebreather 15.0 06/05/19 00:00 98.4 90 26 150/73 (98) 98 06/05/19 00:00 15.0 06/04/19 23:51 88 06/04/19 21:17 146/92 06/04/19 21:15 91 146/92 06/04/19 20:00 101 06/04/19 20:00 15.0 06/04/19 20:00 99.1 103 20 157/100 (119) 95 06/04/19 20:00 Non-Rebreather 15.0 06/04/19 19:30 99.1 103 20 157/100 (119) 95 06/04/19 16:00 15.0 06/04/19 16:00 98.8 86 20 146/89 (108) 97 06/04/19 16:00 96 06/04/19 16:00 Non-Rebreather 15.0 06/04/19 14:00 128/71 06/04/19 12:00 Non-Rebreather 15.0 06/04/19 12:00 80 06/04/19 12:00 15.0 06/04/19 11:30 98.0 78 22 135/74 (94) 92 06/04/19 09:14 78 134/85 06/04/19 09:13 65 134/85 06/04/19 08:00 Non-Rebreather 15.0 06/04/19 08:00 77 06/04/19 08:00 15.0 06/04/19 07:25 97.6 86 22 136/82 (100) 98 Intake and Output 06/05/19 06/06/19 19:00 07:00 Intake Total 420 ml 120 ml Output Total 1150 ml 250 ml Balance -730 ml -130 ml Intake Oral 420 ml 120 ml Output Urine Total 150 ml 250 ml Hemodialysis UF 1000 ml # Bowel Movements 1 Labs Test 06/04/19 08:30 06/04/19 09:50 06/04/19 14:20 06/06/19 05:10 Arterial Blood pH 7.375 (7.350-7.450) Arterial Blood Partial Pressure CO2 28.1 mmHg (35.0-45.0) Arterial Blood Partial Pressure O2 81.3 mmHg (75.0-100.0) Arterial Blood HCO3 16.1 mmol/L (22.0-26.0) Arterial Blood Oxygen Saturation 95.0 % (95-100) Arterial Blood Base Excess -8.2 (-2-2) Kosta Test Positive White Blood Count 14.4 K/UL (4.8-10.8) 12.5 K/UL (4.8-10.8) 21.6 K/UL (4.8-10.8) Red Blood Count 2.88 M/UL (4.70-6.10) 3.25 M/UL (4.70-6.10) 2.53 M/UL (4.70-6.10) Hemoglobin 8.8 G/DL (14.2-18.0) 9.9 G/DL (14.2-18.0) 7.9 G/DL (14.2-18.0) Hematocrit 25.6 % (42.0-52.0) 28.6 % (42.0-52.0) 22.9 % (42.0-52.0) Mean Corpuscular Volume 89 FL (80-99) 88 FL (80-99) 91 FL (80-99) Mean Corpuscular Hemoglobin 30.5 PG (27.0-31.0) 30.6 PG (27.0-31.0) 31.4 PG (27.0-31.0) Mean Corpuscular Hemoglobin Concent 34.2 G/DL (32.0-36.0) 34.7 G/DL (32.0-36.0) 34.6 G/DL (32.0-36.0) Red Cell Distribution Width 13.2 % (11.6-14.8) 13.3 % (11.6-14.8) 13.3 % (11.6-14.8) Platelet Count 334 K/UL (150-450) 310 K/UL (150-450) 268 K/UL (150-450) Mean Platelet Volume 6.8 FL (6.5-10.1) 6.1 FL (6.5-10.1) 6.5 FL (6.5-10.1) Neutrophils (%) (Auto) % (45.0-75.0) % (45.0-75.0) % (45.0-75.0) Lymphocytes (%) (Auto) % (20.0-45.0) % (20.0-45.0) % (20.0-45.0) Monocytes (%) (Auto) % (1.0-10.0) % (1.0-10.0) % (1.0-10.0) Eosinophils (%) (Auto) % (0.0-3.0) % (0.0-3.0) % (0.0-3.0) Basophils (%) (Auto) % (0.0-2.0) % (0.0-2.0) % (0.0-2.0) Differential Total Cells Counted 100 100 Neutrophils % (Manual) 88 % (45-75) 90 % (45-75) Lymphocytes % (Manual) 8 % (20-45) 5 % (20-45) Monocytes % (Manual) 4 % (1-10) 3 % (1-10) Eosinophils % (Manual) 0 % (0-3) 0 % (0-3) Basophils % (Manual) 0 % (0-2) 0 % (0-2) Band Neutrophils 0 % (0-8) 0 % (0-8) Platelet Estimate Adequate Adequate Platelet Morphology Normal Normal Hypochromasia 2+ 1+ Anisocytosis 1+ 1+ Sodium Level 145 MMOL/L (136-145) 145 MMOL/L (136-145) Potassium Level 3.6 MMOL/L (3.5-5.1) 3.3 MMOL/L (3.5-5.1) Chloride Level 104 MMOL/L (98-107) 104 MMOL/L (98-107) Carbon Dioxide Level 16 MMOL/L (21-32) 20 MMOL/L (21-32) Anion Gap 26 mmol/L (5-15) 21 mmol/L (5-15) Blood Urea Nitrogen 74 mg/dL (7-18) 77 mg/dL (7-18) Creatinine 7.7 MG/DL (0.55-1.30) 7.8 MG/DL (0.55-1.30) Estimat Glomerular Filtration Rate 7.1 mL/min (>60) 7.0 mL/min (>60) Glucose Level 151 MG/DL (74-106) 201 MG/DL (74-106) Calcium Level 8.8 MG/DL (8.5-10.1) 8.4 MG/DL (8.5-10.1) Phosphorus Level 7.1 MG/DL (2.5-4.9) Magnesium Level 2.2 MG/DL (1.8-2.4) Total Bilirubin 0.3 MG/DL (0.2-1.0) 0.2 MG/DL (0.2-1.0) Aspartate Amino Transf (AST/SGOT) 36 U/L (15-37) 32 U/L (15-37) Alanine Aminotransferase (ALT/SGPT) 21 U/L (12-78) 16 U/L (12-78) Alkaline Phosphatase 82 U/L (46-116) 81 U/L (46-116) Troponin I 0.058 ng/mL (0.000-0.056) C-Reactive Protein, Quantitative 31.9 mg/dL (0.00-0.90) Total Protein 8.7 G/DL (6.4-8.2) 8.1 G/DL (6.4-8.2) Albumin 2.0 G/DL (3.4-5.0) 1.9 G/DL (3.4-5.0) Globulin 6.7 g/dL 6.2 g/dL Albumin/Globulin Ratio 0.3 (1.0-2.7) 0.3 (1.0-2.7) Metamyelocytes % 1 % (0-0) Myelocytes % 1 % (0-0) Height (Feet): 6 Height (Inches): 1.00 Weight (Pounds): 207 Objective Sp02 EP Interpretation: reviewed, normal General: no apparent distress, alert, GCS 15, non-toxic Head: normocephalic, atraumatic Eyes: bilateral eye normal inspection, bilateral eye PERRL ENT: hearing grossly normal, normal pharynx, no angioedema, normal voice Neck: full range of motion, supple/symm/no masses Respiratory: normal breath sounds, no respiratory distress, NRB+ Cardiovascular: regular rate, rhythm, no edema Gastrointestinal: normal inspection, soft, non-distended Rectal: deferred Musculoskeletal: normal range of motion, non-tender Neurologic: alert, motor strength/tone normal, sensory intact, responsive, speech normal Psychiatric: mood/affect normal, no suicidal/homicidal ideation Skin: Decubitus/Ulcer - See RN skin exam. : jamaal+ Greg Cabral MD Jun 06, 2019 06:45
[2019-06-06] MEDS: Enoxaparin 30mg Inj SUBQ SCH (08:33)
[2019-06-06] MEDS: Wixela 100/50 Inhaler - 60 dose INH SCH ×2 (08:49→18:00)
[2019-06-06] MEDS: Sodium Citrate 30ml ORAL SCH ×2 (08:49→18:00)
[2019-06-06] MEDS: Docusate 100mg cap ORAL SCH ×3 (08:50→18:00)
[2019-06-06] MEDS: Carvedilol 25mg Tab ORAL SCH ×2 (08:51→20:24)
--- NOTE | 2019-06-06 11:49 | Infectious Diseases Prog Note ---
Assessment/Plan Assessment/Plan IMPRESSION: 1. COVID-19 pneumonia 2. MRSA carrier. 3. Chronic kidney disease , end-stage renal disease. 4. COPD. 5. Hypertension. 6. Anemia. 7. Hypothyroidism. 8. Hyperlipidemia. 9. Major depression. 10. Leukocytosis RECOMMENDATIONS: Start on Cefepime Finished hydroxychloroquine. Repeat COVID19 test Subjective ROS Limited/Unobtainable: Yes Constitutional: Denies: fever Neurologic: Reports: confusion, other - on restraint Allergies: Coded Allergies: No Known Allergies (Unverified , 05/28/19) Objective Vital Signs Last 24 Hour Vital Signs Date Time Temp Pulse Resp B/P (MAP) Pulse Ox O2 Delivery O2 Flow Rate FiO2 06/06/19 08:51 86 103/75 06/06/19 08:51 86 103/75 06/06/19 08:00 15.0 06/06/19 08:00 97.7 86 23 103/75 (84) 98 06/06/19 08:00 Non-Rebreather 15.0 06/06/19 07:59 86 06/06/19 04:00 Non-Rebreather 15.0 06/06/19 04:00 98.2 91 22 116/66 (83) 98 06/06/19 04:00 15.0 06/06/19 03:50 87 06/06/19 00:00 Non-Rebreather 15.0 06/06/19 00:00 97.9 95 22 113/68 (83) 98 06/06/19 00:00 15.0 06/05/19 23:54 82 06/05/19 21:52 138/92 06/05/19 21:52 91 138/92 06/05/19 20:00 Non-Rebreather 15.0 06/05/19 20:00 98.4 91 24 138/90 (106) 99 06/05/19 20:00 15.0 06/05/19 19:20 80 06/05/19 16:00 Non-Rebreather 15.0 06/05/19 16:00 97.9 80 22 100/69 (79) 97 06/05/19 16:00 15.0 06/05/19 15:13 73 06/05/19 12:00 Non-Rebreather 15.0 4/25/20 12:00 15.0 Height (Feet): 6 Height (Inches): 1.00 Weight (Pounds): 207 HEENT: mucous membranes moist Respiratory/Chest: other - oxygen by rebreathing mask Cardiovascular: normal rate Abdomen: soft, non tender, other - NG tube Extremities: no edema Neurologic/Psychiatric: alert, responsive, disoriented Laboratory Tests Test 06/06/19 05:10 White Blood Count 21.6 K/UL (4.8-10.8) H Red Blood Count 2.53 M/UL (4.70-6.10) L Hemoglobin 7.9 G/DL (14.2-18.0) L Hematocrit 22.9 % (42.0-52.0) L Mean Corpuscular Volume 91 FL (80-99) Mean Corpuscular Hemoglobin 31.4 PG (27.0-31.0) H Mean Corpuscular Hemoglobin Concent 34.6 G/DL (32.0-36.0) Red Cell Distribution Width 13.3 % (11.6-14.8) Platelet Count 268 K/UL (150-450) Mean Platelet Volume 6.5 FL (6.5-10.1) Neutrophils (%) (Auto) % (45.0-75.0) Lymphocytes (%) (Auto) % (20.0-45.0) Monocytes (%) (Auto) % (1.0-10.0) Eosinophils (%) (Auto) % (0.0-3.0) Basophils (%) (Auto) % (0.0-2.0) Differential Total Cells Counted 100 Neutrophils % (Manual) 92 % (45-75) H Lymphocytes % (Manual) 5 % (20-45) L Monocytes % (Manual) 2 % (1-10) Eosinophils % (Manual) 1 % (0-3) Basophils % (Manual) 0 % (0-2) Band Neutrophils 0 % (0-8) Platelet Estimate Adequate Platelet Morphology Normal Hypochromasia 3+ Anisocytosis 1+ Sodium Level 151 MMOL/L (136-145) H Potassium Level 4.2 MMOL/L (3.5-5.1) Chloride Level 110 MMOL/L (98-107) H Carbon Dioxide Level 19 MMOL/L (21-32) L Anion Gap 22 mmol/L (5-15) H Blood Urea Nitrogen 92 mg/dL (7-18) H Creatinine 10.0 MG/DL (0.55-1.30) H Estimat Glomerular Filtration Rate 5.2 mL/min (>60) Glucose Level 182 MG/DL (74-106) H Calcium Level 9.0 MG/DL (8.5-10.1) Phosphorus Level 7.5 MG/DL (2.5-4.9) H Magnesium Level 2.5 MG/DL (1.8-2.4) H Total Bilirubin 0.2 MG/DL (0.2-1.0) Aspartate Amino Transf (AST/SGOT) 36 U/L (15-37) Alanine Aminotransferase (ALT/SGPT) 17 U/L (12-78) Alkaline Phosphatase 93 U/L (46-116) Troponin I 0.012 ng/mL (0.000-0.056) C-Reactive Protein, Quantitative 40.1 mg/dL (0.00-0.90) H Pro-B-Type Natriuretic Peptide 29690 pg/mL (0-125) H Total Protein 8.8 G/DL (6.4-8.2) H Albumin 2.0 G/DL (3.4-5.0) L Globulin 6.8 g/dL Albumin/Globulin Ratio 0.3 (1.0-2.7) L Current Medications Medications (Trade) Dose Ordered Sig/Anthony Route PRN Reason Start Time Stop Time Status Last Admin Dose Admin Acetaminophen (Tylenol) 650 mg Q6HR PRN ORAL MILD PAIN/Temp >100.5 05/30/19 18:56 06/29/19 18:55 06/01/19 12:27 Albuterol Sulfate (Proventil MDI) 2 puff Q4HRT INH 06/01/19 19:00 08/30/19 18:59 06/06/19 05:55 Amlodipine Besylate (Norvasc) 10 mg DAILY ORAL 05/31/19 09:00 06/28/19 08:59 06/05/19 08:55 Carvedilol (Coreg) 25 mg EVERY 12 HOURS ORAL 05/30/19 21:00 06/27/19 20:59 06/05/19 21:52 Divalproex Sodium (Depakote ER) 500 mg BEDTIME ORAL 06/01/19 21:00 07/01/19 20:59 06/05/19 21:51 Docusate Sodium (Colace) 100 mg THREE TIMES A DAY ORAL 05/31/19 09:00 06/28/19 12:59 06/05/19 08:55 Enoxaparin Sodium (Lovenox) 30 mg DAILY SUBQ 05/31/19 09:00 08/27/19 08:59 06/06/19 08:33 Epoetin Aftab (Epoetin Aftab(ESRD on dialysis)) 10,000 unit SUBQ 06/02/19 21:00 08/31/19 20:59 06/04/19 21:16 Finasteride (Proscar) 5 mg DAILY ORAL 05/31/19 09:00 08/27/19 08:59 06/06/19 08:49 Haloperidol Lactate (Haldol) 5 mg Q6H PRN IM Agitation 05/30/19 18:59 07/12/19 18:58 06/02/19 16:45 Hydralazine HCl (Apresoline) 10 mg Q8HR ORAL 05/30/19 22:00 08/27/19 08:59 06/05/19 21:52 Pantoprazole (Protonix) 40 mg EVERY 12 HOURS ORAL 05/30/19 21:00 06/28/19 20:59 06/06/19 08:50 Salmeterol Xinafoate/ Fluticasone (Advair 100/50 Diskus) 1 puffs BID INH 05/31/19 09:00 08/27/19 08:59 06/06/19 08:49 Sevelamer Carbonate (Renvela) 1,600 mg THREE TIMES A DAY ORAL 06/01/19 09:00 08/30/19 08:59 06/06/19 08:49 Sodium Citrate (Bicitra) 30 ml BID ORAL 06/05/19 18:00 06/28/19 11:59 06/06/19 08:49 Ted Leyva MD Jun 06, 2019 11:49
[2019-06-06] MEDS ORDERED: Cefepime HCl 1 GM in D5W 55 ML IVPB SCH (13:00)
--- NOTE | 2019-06-06 13:54 | Nephrology Progress Note ---
Assessment/Plan Problem List: (1) CASSANDRA (acute kidney injury) (2) Anemia in chronic kidney disease (CKD) (3) HTN (hypertension) (4) Suspected COVID-19 virus infection Assessment Acute renal failure most likely superimposed on chronic kidney disease Suspected COVID-19 virus infection Possible Pneumonia, lymphopenia, elevated AST Cardiomegaly, possible CHF COPD Hypertension Anemia, most likely related to chronic kidney disease Plan Positive for COVID 19 Patient received dialysis June 01 and June 02 , Patient pulled out his femoral catheter yesterday June 03 which was reinserted by Dr. Mast Patient scheduled for dialysis again June 04, which again was not done due to dialysis nurse citing catheter malfunction Meanwhile continue management per ID, pulmonary , and psych. Meanwhile white blood cell count is rising. Patient blood pressure borderline low. Will check ABG Previously May 31 : I believe patient need dialysis treatment He however needs to competency assessment if can make decisions or not I will communicate with Dr. Mulligan Previously: Per pulmonary and ID advice Adjust blood pressure medication Renal diet Anemia work-up 2D echocardiogram refused Kidney ultrasound refused Jules catheter Urine studies Per orders Subjective ROS Limited/Unobtainable: No Constitutional: Reports: malaise, weakness Objective Objective Last 24 Hour Vital Signs Date Time Temp Pulse Resp B/P (MAP) Pulse Ox O2 Delivery O2 Flow Rate FiO2 06/06/19 12:00 15.0 06/06/19 12:00 Non-Rebreather 15.0 06/06/19 12:00 97.7 76 24 95/60 (72) 98 06/06/19 11:53 91 06/06/19 08:51 86 103/75 06/06/19 08:51 86 103/75 06/06/19 08:00 15.0 06/06/19 08:00 97.7 86 23 103/75 (84) 98 06/06/19 08:00 Non-Rebreather 15.0 06/06/19 07:59 86 06/06/19 04:00 Non-Rebreather 15.0 06/06/19 04:00 98.2 91 22 116/66 (83) 98 06/06/19 04:00 15.0 06/06/19 03:50 87 06/06/19 00:00 Non-Rebreather 15.0 06/06/19 00:00 97.9 95 22 113/68 (83) 98 06/06/19 00:00 15.0 06/05/19 23:54 82 06/05/19 21:52 138/92 06/05/19 21:52 91 138/92 06/05/19 20:00 Non-Rebreather 15.0 06/05/19 20:00 98.4 91 24 138/90 (106) 99 06/05/19 20:00 15.0 06/05/19 19:20 80 06/05/19 16:00 Non-Rebreather 15.0 06/05/19 16:00 97.9 80 22 100/69 (79) 97 06/05/19 16:00 15.0 06/05/19 15:13 73 Intake and Output 06/05/19 06/06/19 19:00 07:00 Intake Total 420 ml 120 ml Output Total 1150 ml 250 ml Balance -730 ml -130 ml Intake Oral 420 ml 120 ml Output Urine Total 150 ml 250 ml Hemodialysis UF 1000 ml # Bowel Movements 1 Laboratory Tests 06/06/19 05:10: White Blood Count 21.6H, Red Blood Count 2.53L, Hemoglobin 7.9L, Hematocrit 22.9L, Mean Corpuscular Volume 91, Mean Corpuscular Hemoglobin 31.4H, Mean Corpuscular Hemoglobin Concent 34.6, Red Cell Distribution Width 13.3, Platelet Count 268, Mean Platelet Volume 6.5, Neutrophils (%) (Auto) , Lymphocytes (%) ( Auto) , Monocytes (%) (Auto) , Eosinophils (%) (Auto) , Basophils (%) (Auto) , Differential Total Cells Counted 100, Neutrophils % (Manual) 92H, Lymphocytes % (Manual) 5L, Monocytes % (Manual) 2, Eosinophils % (Manual) 1, Basophils % ( Manual) 0, Band Neutrophils 0, Platelet Estimate Adequate, Platelet Morphology Normal, Hypochromasia 3+, Anisocytosis 1+, Sodium Level 151H, Potassium Level 4.2, Chloride Level 110H, Carbon Dioxide Level 19L, Anion Gap 22H, Blood Urea Nitrogen 92H, Creatinine 10.0H, Estimat Glomerular Filtration Rate 5.2, Glucose Level 182H, Calcium Level 9.0, Phosphorus Level 7.5H, Magnesium Level 2.5H, Total Bilirubin 0.2, Aspartate Amino Transf (AST/SGOT) 36, Alanine Aminotransferase (ALT/SGPT) 17, Alkaline Phosphatase 93, Troponin I 0.012, C- Reactive Protein, Quantitative 40.1H, Pro-B-Type Natriuretic Peptide 17690J, Total Protein 8.8H, Albumin 2.0L, Globulin 6.8, Albumin/Globulin Ratio 0.3L Height (Feet): 6 Height (Inches): 1.00 Weight (Pounds): 207 General Appearance: mild distress EENT: other - On nonrebreather mask Cardiovascular: tachycardia, other Respiratory/Chest: decreased breath sounds - Variable rate Abdomen: distended Objective No change Mic Cole MD Jun 06, 2019 13:54
[2019-06-06] MEDS ORDERED: Haloperidol 5mg/ml Inj IM PRN (22:00)
--- NOTE | 2019-06-06 22:22 | Surgery Progress Note ---
Surgery Progress Note Subjective Procedure Performed left femoral temporary HD catheter placement Symptoms: worse Additional Comments leukocytosis labs worse hypotensive in ICU agitated and combative HD done Objective Last 24 Hour Vital Signs Date Time Temp Pulse Resp B/P (MAP) Pulse Ox O2 Delivery O2 Flow Rate FiO2 06/06/19 22:02 75/48 06/06/19 22:00 75/48 06/06/19 20:00 98.4 92 26 71/35 (47) 95 06/06/19 20:00 Non-Rebreather 15.0 Non-Rebreather 15.0 06/06/19 20:00 15.0 06/06/19 16:00 15.0 06/06/19 16:00 Non-Rebreather 15.0 06/06/19 15:33 100 06/06/19 14:00 95/60 06/06/19 12:00 15.0 06/06/19 12:00 Non-Rebreather 15.0 06/06/19 12:00 97.7 76 24 95/60 (72) 98 06/06/19 11:53 91 06/06/19 08:51 86 103/75 06/06/19 08:51 86 103/75 06/06/19 08:00 15.0 06/06/19 08:00 97.7 86 23 103/75 (84) 98 06/06/19 08:00 Non-Rebreather 15.0 06/06/19 07:59 86 06/06/19 04:00 Non-Rebreather 15.0 06/06/19 04:00 98.2 91 22 116/66 (83) 98 06/06/19 04:00 15.0 06/06/19 03:50 87 06/06/19 00:00 Non-Rebreather 15.0 06/06/19 00:00 97.9 95 22 113/68 (83) 98 06/06/19 00:00 15.0 06/05/19 23:54 82 I&O Intake and Output 06/05/19 06/06/19 19:00 07:00 Intake Total 420 ml 120 ml Output Total 1150 ml 250 ml Balance -730 ml -130 ml Intake Oral 420 ml 120 ml Output Urine Total 150 ml 250 ml Hemodialysis UF 1000 ml # Bowel Movements 1 Dressing: other Wound: other Drains: other Cardiovascular: RSR Respiratory: decreased breath sounds Abdomen: soft, non-tender, present bowel sounds Extremities: no edema, no tenderness, no cyanosis Laboratory Tests Test 06/06/19 05:10 06/06/19 20:10 White Blood Count 21.6 K/UL (4.8-10.8) H Red Blood Count 2.53 M/UL (4.70-6.10) L Hemoglobin 7.9 G/DL (14.2-18.0) L Hematocrit 22.9 % (42.0-52.0) L Mean Corpuscular Volume 91 FL (80-99) Mean Corpuscular Hemoglobin 31.4 PG (27.0-31.0) H Mean Corpuscular Hemoglobin Concent 34.6 G/DL (32.0-36.0) Red Cell Distribution Width 13.3 % (11.6-14.8) Platelet Count 268 K/UL (150-450) Mean Platelet Volume 6.5 FL (6.5-10.1) Neutrophils (%) (Auto) % (45.0-75.0) Lymphocytes (%) (Auto) % (20.0-45.0) Monocytes (%) (Auto) % (1.0-10.0) Eosinophils (%) (Auto) % (0.0-3.0) Basophils (%) (Auto) % (0.0-2.0) Differential Total Cells Counted 100 Neutrophils % (Manual) 92 % (45-75) H Lymphocytes % (Manual) 5 % (20-45) L Monocytes % (Manual) 2 % (1-10) Eosinophils % (Manual) 1 % (0-3) Basophils % (Manual) 0 % (0-2) Band Neutrophils 0 % (0-8) Platelet Estimate Adequate Platelet Morphology Normal Hypochromasia 3+ Anisocytosis 1+ Sodium Level 151 MMOL/L (136-145) H Potassium Level 4.2 MMOL/L (3.5-5.1) Chloride Level 110 MMOL/L (98-107) H Carbon Dioxide Level 19 MMOL/L (21-32) L Anion Gap 22 mmol/L (5-15) H Blood Urea Nitrogen 92 mg/dL (7-18) H Creatinine 10.0 MG/DL (0.55-1.30) H Estimat Glomerular Filtration Rate 5.2 mL/min (>60) Glucose Level 182 MG/DL (74-106) H Calcium Level 9.0 MG/DL (8.5-10.1) Phosphorus Level 7.5 MG/DL (2.5-4.9) H Magnesium Level 2.5 MG/DL (1.8-2.4) H Total Bilirubin 0.2 MG/DL (0.2-1.0) Aspartate Amino Transf (AST/SGOT) 36 U/L (15-37) Alanine Aminotransferase (ALT/SGPT) 17 U/L (12-78) Alkaline Phosphatase 93 U/L (46-116) Troponin I 0.012 ng/mL (0.000-0.056) C-Reactive Protein, Quantitative 40.1 mg/dL (0.00-0.90) H Pro-B-Type Natriuretic Peptide 06624 pg/mL (0-125) H Total Protein 8.8 G/DL (6.4-8.2) H Albumin 2.0 G/DL (3.4-5.0) L Globulin 6.8 g/dL Albumin/Globulin Ratio 0.3 (1.0-2.7) L Arterial Blood pH 7.300 (7.350-7.450) Arterial Blood Partial Pressure CO2 30.5 mmHg (35.0-45.0) L Arterial Blood Partial Pressure O2 101.0 mmHg (75.0-100.0) H Arterial Blood HCO3 14.9 mmol/L (22.0-26.0) *L Arterial Blood Oxygen Saturation 96.8 % (95-100) Arterial Blood Base Excess -10.3 (-2-2) *L Kosta Test Positive Plan Problems: (1) Suspected COVID-19 virus infection (2) HTN (hypertension) (3) CASSANDRA (acute kidney injury) Assessment & Plan: Needs urgent HD needs access patient okay and consented see note will follow with recs new line placed discussed with team and nephrology HD line functional when checked has TPA now please use appropriately (4) Anemia in chronic kidney disease (CKD) (5) Anemia (6) Renal failure (7) Suspected COVID-19 virus infection (8) COVID-19 Assessment & Plan: COVID + c diff negative febrile leukocytosis renal insufficiency see above cont resp care Rx as per Yaniv Clarke Jun 06, 2019 22:22
--- NOTE | 2019-06-06 22:22 | General Progress Note ---
Assessment/Plan Problem List: (1) Anemia ICD Codes: D64.9 - Anemia, unspecified SNOMED: 989885298 (2) Renal failure ICD Codes: N19 - Unspecified kidney failure SNOMED: 41877707 (3) Suspected COVID-19 virus infection ICD Codes: R68.89 - Other general symptoms and signs SNOMED: 847407957 (4) HTN (hypertension) ICD Codes: I10 - Essential (primary) hypertension SNOMED: 00383982 (5) CASSANDRA (acute kidney injury) ICD Codes: N17.9 - Acute kidney failure, unspecified SNOMED: 0253026, 46563987 (6) Anemia in chronic kidney disease (CKD) ICD Codes: N18.9 - Chronic kidney disease, unspecified; D63.1 - Anemia in chronic kidney disease SNOMED: 419086034 (7) Suspected COVID-19 virus infection ICD Codes: R68.89 - Other general symptoms and signs SNOMED: 168279134 Status: progressing Assessment/Plan: worsening renal failure worsening anemia worsening leukocytosis sepsis continue supportive therapy poor prognosis on top of cri hypokalemia diaylsis per dr bailey not hypoxic fluid overload Subjective ROS Limited/Unobtainable: Yes Allergies: Coded Allergies: No Known Allergies (Unverified , 05/28/19) Objective Last 24 Hour Vital Signs Date Time Temp Pulse Resp B/P (MAP) Pulse Ox O2 Delivery O2 Flow Rate FiO2 06/06/19 22:02 75/48 06/06/19 22:00 75/48 06/06/19 20:00 98.4 92 26 71/35 (47) 95 06/06/19 20:00 Non-Rebreather 15.0 Non-Rebreather 15.0 06/06/19 20:00 15.0 06/06/19 16:00 15.0 06/06/19 16:00 Non-Rebreather 15.0 06/06/19 15:33 100 06/06/19 14:00 95/60 06/06/19 12:00 15.0 06/06/19 12:00 Non-Rebreather 15.0 06/06/19 12:00 97.7 76 24 95/60 (72) 98 06/06/19 11:53 91 06/06/19 08:51 86 103/75 06/06/19 08:51 86 103/75 06/06/19 08:00 15.0 06/06/19 08:00 97.7 86 23 103/75 (84) 98 06/06/19 08:00 Non-Rebreather 15.0 06/06/19 07:59 86 06/06/19 04:00 Non-Rebreather 15.0 06/06/19 04:00 98.2 91 22 116/66 (83) 98 06/06/19 04:00 15.0 06/06/19 03:50 87 06/06/19 00:00 Non-Rebreather 15.0 06/06/19 00:00 97.9 95 22 113/68 (83) 98 06/06/19 00:00 15.0 06/05/19 23:54 82 Intake and Output 06/05/19 06/06/19 19:00 07:00 Intake Total 420 ml 120 ml Output Total 1150 ml 250 ml Balance -730 ml -130 ml Intake Oral 420 ml 120 ml Output Urine Total 150 ml 250 ml Hemodialysis UF 1000 ml # Bowel Movements 1 Laboratory Tests 06/06/19 05:10: White Blood Count 21.6H, Red Blood Count 2.53L, Hemoglobin 7.9L, Hematocrit 22.9L, Mean Corpuscular Volume 91, Mean Corpuscular Hemoglobin 31.4H, Mean Corpuscular Hemoglobin Concent 34.6, Red Cell Distribution Width 13.3, Platelet Count 268, Mean Platelet Volume 6.5, Neutrophils (%) (Auto) , Lymphocytes (%) ( Auto) , Monocytes (%) (Auto) , Eosinophils (%) (Auto) , Basophils (%) (Auto) , Differential Total Cells Counted 100, Neutrophils % (Manual) 92H, Lymphocytes % (Manual) 5L, Monocytes % (Manual) 2, Eosinophils % (Manual) 1, Basophils % ( Manual) 0, Band Neutrophils 0, Platelet Estimate Adequate, Platelet Morphology Normal, Hypochromasia 3+, Anisocytosis 1+, Sodium Level 151H, Potassium Level 4.2, Chloride Level 110H, Carbon Dioxide Level 19L, Anion Gap 22H, Blood Urea Nitrogen 92H, Creatinine 10.0H, Estimat Glomerular Filtration Rate 5.2, Glucose Level 182H, Calcium Level 9.0, Phosphorus Level 7.5H, Magnesium Level 2.5H, Total Bilirubin 0.2, Aspartate Amino Transf (AST/SGOT) 36, Alanine Aminotransferase (ALT/SGPT) 17, Alkaline Phosphatase 93, Troponin I 0.012, C- Reactive Protein, Quantitative 40.1H, Pro-B-Type Natriuretic Peptide 32023D, Total Protein 8.8H, Albumin 2.0L, Globulin 6.8, Albumin/Globulin Ratio 0.3L 06/06/19 20:10: Arterial Blood pH 7.300L, Arterial Blood Partial Pressure CO2 30.5L, Arterial Blood Partial Pressure O2 101.0H, Arterial Blood HCO3 14.9*L, Arterial Blood Oxygen Saturation 96.8, Arterial Blood Base Excess -10.3*L, Kosta Test Positive Height (Feet): 6 Height (Inches): 1.00 Weight (Pounds): 207 General Appearance: lethargic, confused Karishma Mulligan MD Jun 06, 2019 22:22
--- NOTE | 2019-06-06 23:56 | Pulmonology Progress Note ---
Assessment/Plan Assessment/Plan Pulmonary Progress Note HPI: Patient is a 68 year old man, residential resident, admitted c/o shortness of breath, cough, noted to have Covid 19 Pneumonia. 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 Monitor cultures/viral studies PPX Hemodialysis per Renal Psychiatry following Laboratory Tests Noted: CXR: Hypoventilatory exam, interstitial changes, cardiomegaly, worseing infiltrates Subjective ROS Limited/Unobtainable: No Constitutional: Denies: fever Respiratory: Reports: dry cough, shortness of breath Psychiatric: Reports: other - refuses labs Allergies: Coded Allergies: No Known Allergies (Unverified , 05/28/19) Objective Last 24 Hour Vital Signs Date Time Temp Pulse Resp B/P (MAP) Pulse Ox O2 Delivery O2 Flow Rate FiO2 06/06/19 23:00 83 37 93/62 (72) 94 06/06/19 22:30 77 37 83/47 (59) 95 06/06/19 22:02 75/48 06/06/19 22:00 82 36 76/48 (57) 94 06/06/19 22:00 75/48 06/06/19 21:30 85 30 99/53 (68) 92 06/06/19 21:15 98.2 85 30 99/53 (68) 88 06/06/19 20:00 98.4 92 26 71/35 (47) 95 06/06/19 20:00 Non-Rebreather 15.0 Non-Rebreather 15.0 06/06/19 20:00 15.0 06/06/19 19:25 90 06/06/19 16:00 15.0 06/06/19 16:00 Non-Rebreather 15.0 06/06/19 15:33 100 06/06/19 14:00 95/60 06/06/19 12:00 15.0 06/06/19 12:00 Non-Rebreather 15.0 06/06/19 12:00 97.7 76 24 95/60 (72) 98 06/06/19 11:53 91 06/06/19 08:51 86 103/75 06/06/19 08:51 86 103/75 06/06/19 08:00 15.0 06/06/19 08:00 97.7 86 23 103/75 (84) 98 06/06/19 08:00 Non-Rebreather 15.0 06/06/19 07:59 86 06/06/19 04:00 Non-Rebreather 15.0 06/06/19 04:00 98.2 91 22 116/66 (83) 98 06/06/19 04:00 15.0 06/06/19 03:50 87 06/06/19 00:00 Non-Rebreather 15.0 06/06/19 00:00 97.9 95 22 113/68 (83) 98 06/06/19 00:00 15.0 Intake and Output 06/05/19 06/06/19 19:00 07:00 Intake Total 420 ml 120 ml Output Total 1150 ml 250 ml Balance -730 ml -130 ml Intake Oral 420 ml 120 ml Output Urine Total 150 ml 250 ml Hemodialysis UF 1000 ml # Bowel Movements 1 General Appearance: no acute distress HEENT: mucous membranes moist Abdomen: soft, non tender, other - NG tube Extremities: no edema Skin: no rash Neurologic/Psychiatric: alert, responsive, disoriented Laboratory Tests 06/06/19 05:10: White Blood Count 21.6H, Red Blood Count 2.53L, Hemoglobin 7.9L, Hematocrit 22.9L, Mean Corpuscular Volume 91, Mean Corpuscular Hemoglobin 31.4H, Mean Corpuscular Hemoglobin Concent 34.6, Red Cell Distribution Width 13.3, Platelet Count 268, Mean Platelet Volume 6.5, Neutrophils (%) (Auto) , Lymphocytes (%) ( Auto) , Monocytes (%) (Auto) , Eosinophils (%) (Auto) , Basophils (%) (Auto) , Differential Total Cells Counted 100, Neutrophils % (Manual) 92H, Lymphocytes % (Manual) 5L, Monocytes % (Manual) 2, Eosinophils % (Manual) 1, Basophils % ( Manual) 0, Band Neutrophils 0, Platelet Estimate Adequate, Platelet Morphology Normal, Hypochromasia 3+, Anisocytosis 1+, Sodium Level 151H, Potassium Level 4.2, Chloride Level 110H, Carbon Dioxide Level 19L, Anion Gap 22H, Blood Urea Nitrogen 92H, Creatinine 10.0H, Estimat Glomerular Filtration Rate 5.2, Glucose Level 182H, Calcium Level 9.0, Phosphorus Level 7.5H, Magnesium Level 2.5H, Total Bilirubin 0.2, Aspartate Amino Transf (AST/SGOT) 36, Alanine Aminotransferase (ALT/SGPT) 17, Alkaline Phosphatase 93, Troponin I 0.012, C- Reactive Protein, Quantitative 40.1H, Pro-B-Type Natriuretic Peptide 35795P, Total Protein 8.8H, Albumin 2.0L, Globulin 6.8, Albumin/Globulin Ratio 0.3L 06/06/19 20:10: Arterial Blood pH 7.300L, Arterial Blood Partial Pressure CO2 30.5L, Arterial Blood Partial Pressure O2 101.0H, Arterial Blood HCO3 14.9*L, Arterial Blood Oxygen Saturation 96.8, Arterial Blood Base Excess -10.3*L, Kosta Test Positive Current Medications Medications (Trade) Dose Ordered Sig/Anthony Route PRN Reason Start Time Stop Time Status Last Admin Dose Admin Acetaminophen (Tylenol) 650 mg Q6H PRN ORAL MILD PAIN/Temp >100.5 06/07/19 00:00 07/07/19 00:00 Albumin Human 250 ml @ 0 mls/hr Q0M PRN IV For hypotension 06/06/19 21:15 09/04/19 12:44 Albuterol Sulfate (Proventil MDI) 2 puff Q4HRT INH 06/06/19 23:00 08/30/19 18:59 Amlodipine Besylate (Norvasc) 10 mg DAILY ORAL 06/07/19 09:00 06/28/19 08:59 Carvedilol (Coreg) 25 mg EVERY 12 HOURS ORAL 06/07/19 09:00 06/27/19 20:59 Cefepime HCl 1 gm/ Dextrose 55 ml @ 110 mls/hr Q24H IVPB 06/07/19 13:00 06/13/19 12:59 Divalproex Sodium (Depakote ER) 500 mg BEDTIME ORAL 06/07/19 21:00 07/01/19 20:59 Docusate Sodium (Colace) 100 mg THREE TIMES A DAY ORAL 06/07/19 09:00 06/28/19 12:59 Enoxaparin Sodium (Lovenox) 30 mg DAILY SUBQ 06/07/19 09:00 08/27/19 08:59 Epoetin Aftab (Epoetin Aftab(ESRD on dialysis)) 10,000 unit FRI-FRI-FRI SUBQ 06/07/19 21:00 08/31/19 20:59 Finasteride (Proscar) 5 mg DAILY ORAL 06/07/19 09:00 08/27/19 08:59 Haloperidol Lactate (Haldol) 5 mg Q6H PRN IM Agitation 06/06/19 22:00 07/21/19 21:59 Hydralazine HCl (Apresoline) 10 mg Q8HR ORAL 06/06/19 22:00 08/27/19 08:59 Norepinephrine Bitartrate 4 mg/ Dextrose 250 ml @ 0 mls/hr Q24H IV 06/06/19 21:30 07/06/19 21:29 06/06/19 22:02 Pantoprazole (Protonix) 40 mg EVERY 12 HOURS ORAL 06/07/19 09:00 06/28/19 20:59 Salmeterol Xinafoate/ Fluticasone (Advair 100/50 Diskus) 1 puffs BID INH 06/07/19 09:00 08/27/19 08:59 Sevelamer Carbonate (Renvela) 1,600 mg THREE TIMES A DAY ORAL 06/07/19 09:00 08/30/19 08:59 Sodium Citrate (Bicitra) 30 ml BID ORAL 06/07/19 09:00 06/28/19 11:59 Arturo Mckeon MD Jun 06, 2019 23:56
[2019-06-07] VITALS (67 sets, daily range): BP systolic 83–126; BP diastolic 50–72
[2019-06-07] MEDS: Albuterol 90mcg Inhaler 8gm INH SCH ×6 (03:21→23:00)
[2019-06-07] MEDS: HydrALAZINE 10mg Tab ORAL SCH (05:59)
[2019-06-07 06:04] LABS: HEMATOCRIT 23.3 % (42.0-52.0); HEMOGLOBIN 7.9 G/DL (14.2-18.0); MEAN CORPUSCULAR VOLUME 92 FL (80-99); PLATELET COUNT 297 K/UL (150-450); RED BLOOD COUNT 2.54 M/UL (4.70-6.10); RED CELL DISTRIBUTION WIDTH 13.2 % (11.6-14.8)
[2019-06-07 06:30] LABS: WHITE BLOOD COUNT 25.6 K/UL (4.8-10.8)
[2019-06-07 06:31] LABS: ALANINE AMINOTRANSFERASE 8 U/L (12-78); ALBUMIN 2.7 G/DL (3.4-5.0); ALBUMIN/GLOBULIN RATIO 0.4 (1.0-2.7); ALKALINE PHOSPHATASE 87 U/L (46-116); ANION GAP 24 mmol/L (5-15); ASPARTATE AMINO TRANSFERASE 42 U/L (15-37); BILIRUBIN,TOTAL 0.4 MG/DL (0.2-1.0); BLOOD UREA NITROGEN 75 mg/dL (7-18); CALCIUM 9.6 MG/DL (8.5-10.1); CARBON DIOXIDE 16 MMOL/L (21-32); CHLORIDE 104 MMOL/L (98-107); CREATININE 8.2 MG/DL (0.55-1.30); POTASSIUM 4.6 MMOL/L (3.5-5.1); SODIUM 144 MMOL/L (136-145)
[2019-06-07 06:41] LABS: PHOSPHORUS 8.7 MG/DL (2.5-4.9)
--- NOTE | 2019-06-07 07:02 | Hematology/Onc Progress Note ---
Assessment/Plan Assessment/Plan Assessment and Recs: # Anemia of chronic disease, likely related ot underlying kidney disease --> hgb trend 9-->8-->7.3-->7.9 --> transfuse as needed, hgb goal >7 --> no evidence of hemolysis --> peripheral smear has been reviewed --> epogen started tid # Leukocytosis likely related to suspected COVID-19 virus infection --> on abx and plaquenil --> trend smear as needed --> initially 4-->11-->14.5-->21-->26 --> pulm is aware # Lymphopenia --> likely related to covid19 # Possible Pneumonia # Cardiomegaly # Transaminitis with Elevated AST # COPD # Chronic Kidney Disease --> per renal hd # Hypertension # Dvt ppx lovenox Appreciate consultation and ernesto Rn Subjective HEENT: Denies: no symptoms, eye pain, blurred vision, tearing, double vision, ear pain, ear discharge, nose pain, nose congestion, throat pain, throat swelling, mouth pain, mouth swelling, other Cardiovascular: Denies: no symptoms, chest pain, edema, irregular heart rate, lightheadedness, palpitations, syncope, other Respiratory: Denies: no symptoms, cough, shortness of breath, SOB with excertion, SOB at rest, sputum, wheezing, other Gastrointestinal/Abdominal: Denies: no symptoms, abdomen distended, abdominal pain, black stools, tarry stools, blood in stool, constipated, diarrhea, difficulty swallowing, nausea, poor appetite, poor fluid intake, rectal bleeding , vomiting, other Genitourinary: Denies: no symptoms, burning, discharge, frequency, flank pain, hematuria, incontinence, pain, urgency, other Neurologic/Psychiatric: Denies: no symptoms, anxiety, depressed, emotional problems, headache, numbness, paresthesia, pre-existing deficit, seizure, tingling, tremors, weakness, other Endocrine: Denies: no symptoms, excessive sweating, flushing, intolerance to cold, intolerance to heat, increased hunger, increased thirst, increased urine, unexplained weight gain, unexplained weight loss, other Hematologic/Lymphatic: Denies: no symptoms, anemia, easy bleeding, easy bruising, adenopathy, other Allergies: Coded Allergies: No Known Allergies (Unverified , 05/28/19) Subjective 06/01 extremely agitated, not allowing labs draws, no night sweats, cbc ordered 06/02 confused, restraints, on abx and plaquenil, hgb 7.9, nrb 15 L 06/03 is with nonrebreather, but not compliant, remains confused 06/05 no bleeding, labs noted, no major bleeding, otherwise comfortable 06/06 labs reviewed, no bleeding, meds noted, no night sweats, on levo and nonrebreather Objective Objective Current Medications Medications (Trade) Dose Ordered Sig/Anthony Route PRN Reason Start Time Stop Time Status Last Admin Dose Admin Acetaminophen (Tylenol) 650 mg Q6H PRN ORAL MILD PAIN/Temp >100.5 06/07/19 00:00 07/07/19 00:00 Albumin Human 250 ml @ 0 mls/hr Q0M PRN IV For hypotension 06/06/19 21:15 09/04/19 12:44 Albuterol Sulfate (Proventil MDI) 2 puff Q4HRT INH 06/06/19 23:00 08/30/19 18:59 06/07/19 03:21 Amlodipine Besylate (Norvasc) 10 mg DAILY ORAL 06/07/19 09:00 06/28/19 08:59 Carvedilol (Coreg) 25 mg EVERY 12 HOURS ORAL 06/07/19 09:00 06/27/19 20:59 Cefepime HCl 1 gm/ Dextrose 55 ml @ 110 mls/hr Q24H IVPB 06/07/19 13:00 06/13/19 12:59 Divalproex Sodium (Depakote ER) 500 mg BEDTIME ORAL 06/07/19 21:00 07/01/19 20:59 Docusate Sodium (Colace) 100 mg THREE TIMES A DAY ORAL 06/07/19 09:00 06/28/19 12:59 Enoxaparin Sodium (Lovenox) 30 mg DAILY SUBQ 06/07/19 09:00 08/27/19 08:59 Epoetin Aftab (Epoetin Aftab(ESRD on dialysis)) 10,000 unit MON-WED-FRI SUBQ 06/07/19 21:00 08/31/19 20:59 Finasteride (Proscar) 5 mg DAILY ORAL 06/07/19 09:00 08/27/19 08:59 Haloperidol Lactate (Haldol) 5 mg Q6H PRN IM Agitation 06/06/19 22:00 07/21/19 21:59 Hydralazine HCl (Apresoline) 10 mg Q8HR ORAL 06/06/19 22:00 08/27/19 08:59 Norepinephrine Bitartrate 4 mg/ Dextrose 250 ml @ 0 mls/hr Q24H IV 06/06/19 21:30 07/06/19 21:29 06/07/19 02:47 Pantoprazole (Protonix) 40 mg EVERY 12 HOURS ORAL 06/07/19 09:00 06/28/19 20:59 Salmeterol Xinafoate/ Fluticasone (Advair 100/50 Diskus) 1 puffs BID INH 06/07/19 09:00 08/27/19 08:59 Sevelamer Carbonate (Renvela) 1,600 mg THREE TIMES A DAY ORAL 06/07/19 09:00 08/30/19 08:59 Sodium Citrate (Bicitra) 30 ml BID ORAL 06/07/19 09:00 06/28/19 11:59 Last 24 Hour Vital Signs Date Time Temp Pulse Resp B/P (MAP) Pulse Ox O2 Delivery O2 Flow Rate FiO2 06/07/19 06:30 77 28 105/59 (74) 100 06/07/19 06:15 74 28 91/60 (70) 100 06/07/19 06:01 73 28 90/55 (67) 100 06/07/19 06:00 96/57 06/07/19 06:00 73 28 89/60 (70) 100 06/07/19 05:59 110/52 06/07/19 05:30 71 23 84/59 (67) 100 06/07/19 05:00 78 26 115/61 (79) 100 06/07/19 05:00 89/60 06/07/19 04:30 77 28 88/56 (67) 100 06/07/19 04:00 15.0 06/07/19 04:00 76 06/07/19 04:00 Non-Rebreather 15.0 Non-Rebreather 15.0 06/07/19 04:00 98.6 74 30 98/51 (67) 100 06/07/19 04:00 99/53 06/07/19 03:30 91 35 104/68 (80) 88 06/07/19 03:22 81 33 94 Non-Rebreather 15.0 100 06/07/19 03:21 82 33 93 Non-Rebreather 15.0 100 06/07/19 03:00 77 30 109/56 (73) 94 06/07/19 03:00 99/54 06/07/19 02:47 111/64 06/07/19 02:30 94 36 117/64 (81) 86 06/07/19 02:00 80 34 109/59 (76) 93 06/07/19 01:30 84 40 103/60 (74) 88 06/07/19 01:00 96/50 06/07/19 01:00 79 32 102/52 (69) 92 06/07/19 00:30 97 39 123/66 (85) 85 06/07/19 00:00 88 06/07/19 00:00 101/53 06/07/19 00:00 98.0 88 34 117/69 (85) 90 06/07/19 00:00 Non-Rebreather 15.0 Non-Rebreather 15.0 06/06/19 23:59 87 30 92 Non-Rebreather 15.0 100 06/06/19 23:59 86 32 93 Non-Rebreather 15.0 100 06/06/19 23:30 94 42 108/57 (74) 87 06/06/19 23:00 107/54 06/06/19 23:00 83 37 93/62 (72) 94 06/06/19 22:30 77/50 06/06/19 22:30 77 37 83/47 (59) 95 06/06/19 22:02 75/48 06/06/19 22:00 82 36 76/48 (57) 94 06/06/19 22:00 75/48 06/06/19 21:30 85 30 99/53 (68) 92 06/06/19 21:15 98.2 85 30 99/53 (68) 88 06/06/19 20:00 98.4 92 26 71/35 (47) 95 06/06/19 20:00 Non-Rebreather 15.0 Non-Rebreather 15.0 06/06/19 20:00 15.0 06/06/19 19:25 90 06/06/19 16:00 15.0 06/06/19 16:00 Non-Rebreather 15.0 06/06/19 15:33 100 06/06/19 14:00 95/60 06/06/19 12:00 15.0 06/06/19 12:00 Non-Rebreather 15.0 06/06/19 12:00 97.7 76 24 95/60 (72) 98 06/06/19 11:53 91 06/06/19 08:51 86 103/75 06/06/19 08:51 86 103/75 06/06/19 08:00 15.0 06/06/19 08:00 97.7 86 23 103/75 (84) 98 06/06/19 08:00 Non-Rebreather 15.0 06/06/19 07:59 86 06/06/19 04:00 Non-Rebreather 15.0 06/06/19 04:00 98.2 91 22 116/66 (83) 98 06/06/19 04:00 15.0 06/06/19 03:50 87 06/06/19 00:00 Non-Rebreather 15.0 06/06/19 00:00 97.9 95 22 113/68 (83) 98 06/06/19 00:00 15.0 06/05/19 23:54 82 06/05/19 21:52 138/92 06/05/19 21:52 91 138/92 06/05/19 20:00 Non-Rebreather 15.0 06/05/19 20:00 98.4 91 24 138/90 (106) 99 06/05/19 20:00 15.0 06/05/19 19:20 80 06/05/19 16:00 Non-Rebreather 15.0 06/05/19 16:00 97.9 80 22 100/69 (79) 97 06/05/19 16:00 15.0 06/05/19 15:13 73 06/05/19 12:00 Non-Rebreather 15.0 06/05/19 12:00 15.0 06/05/19 11:46 85 06/05/19 08:55 89 133/78 06/05/19 08:54 89 133/78 06/05/19 08:00 98.1 89 21 133/78 (96) 97 06/05/19 08:00 15.0 06/05/19 08:00 Non-Rebreather 15.0 06/05/19 07:55 91 Intake and Output 06/06/19 06/07/19 19:00 07:00 Intake Total 255 ml 337.5 ml Output Total 2050 ml 1210 ml Balance -1795 ml -872.5 ml Intake Oral 200 ml IV Total 55 ml 337.5 ml Output Urine Total 50 ml 210 ml Hemodialysis UF 2000 ml 1000 ml Labs Test 06/04/19 08:30 06/04/19 09:50 06/04/19 14:20 06/06/19 05:10 Arterial Blood pH 7.375 (7.350-7.450) Arterial Blood Partial Pressure CO2 28.1 mmHg (35.0-45.0) Arterial Blood Partial Pressure O2 81.3 mmHg (75.0-100.0) Arterial Blood HCO3 16.1 mmol/L (22.0-26.0) Arterial Blood Oxygen Saturation 95.0 % (95-100) Arterial Blood Base Excess -8.2 (-2-2) Kosta Test Positive White Blood Count 14.4 K/UL (4.8-10.8) 12.5 K/UL (4.8-10.8) 21.6 K/UL (4.8-10.8) Red Blood Count 2.88 M/UL (4.70-6.10) 3.25 M/UL (4.70-6.10) 2.53 M/UL (4.70-6.10) Hemoglobin 8.8 G/DL (14.2-18.0) 9.9 G/DL (14.2-18.0) 7.9 G/DL (14.2-18.0) Hematocrit 25.6 % (42.0-52.0) 28.6 % (42.0-52.0) 22.9 % (42.0-52.0) Mean Corpuscular Volume 89 FL (80-99) 88 FL (80-99) 91 FL (80-99) Mean Corpuscular Hemoglobin 30.5 PG (27.0-31.0) 30.6 PG (27.0-31.0) 31.4 PG (27.0-31.0) Mean Corpuscular Hemoglobin Concent 34.2 G/DL (32.0-36.0) 34.7 G/DL (32.0-36.0) 34.6 G/DL (32.0-36.0) Red Cell Distribution Width 13.2 % (11.6-14.8) 13.3 % (11.6-14.8) 13.3 % (11.6-14.8) Platelet Count 334 K/UL (150-450) 310 K/UL (150-450) 268 K/UL (150-450) Mean Platelet Volume 6.8 FL (6.5-10.1) 6.1 FL (6.5-10.1) 6.5 FL (6.5-10.1) Neutrophils (%) (Auto) % (45.0-75.0) % (45.0-75.0) % (45.0-75.0) Lymphocytes (%) (Auto) % (20.0-45.0) % (20.0-45.0) % (20.0-45.0) Monocytes (%) (Auto) % (1.0-10.0) % (1.0-10.0) % (1.0-10.0) Eosinophils (%) (Auto) % (0.0-3.0) % (0.0-3.0) % (0.0-3.0) Basophils (%) (Auto) % (0.0-2.0) % (0.0-2.0) % (0.0-2.0) Differential Total Cells Counted 100 100 100 Neutrophils % (Manual) 88 % (45-75) 90 % (45-75) 92 % (45-75) Lymphocytes % (Manual) 8 % (20-45) 5 % (20-45) 5 % (20-45) Monocytes % (Manual) 4 % (1-10) 3 % (1-10) 2 % (1-10) Eosinophils % (Manual) 0 % (0-3) 0 % (0-3) 1 % (0-3) Basophils % (Manual) 0 % (0-2) 0 % (0-2) 0 % (0-2) Band Neutrophils 0 % (0-8) 0 % (0-8) 0 % (0-8) Platelet Estimate Adequate Adequate Adequate Platelet Morphology Normal Normal Normal Hypochromasia 2+ 1+ 3+ Anisocytosis 1+ 1+ 1+ Sodium Level 145 MMOL/L (136-145) 145 MMOL/L (136-145) 151 MMOL/L (136-145) Potassium Level 3.6 MMOL/L (3.5-5.1) 3.3 MMOL/L (3.5-5.1) 4.2 MMOL/L (3.5-5.1) Chloride Level 104 MMOL/L (98-107) 104 MMOL/L (98-107) 110 MMOL/L (98-107) Carbon Dioxide Level 16 MMOL/L (21-32) 20 MMOL/L (21-32) 19 MMOL/L (21-32) Anion Gap 26 mmol/L (5-15) 21 mmol/L (5-15) 22 mmol/L (5-15) Blood Urea Nitrogen 74 mg/dL (7-18) 77 mg/dL (7-18) 92 mg/dL (7-18) Creatinine 7.7 MG/DL (0.55-1.30) 7.8 MG/DL (0.55-1.30) 10.0 MG/DL (0.55-1.30) Estimat Glomerular Filtration Rate 7.1 mL/min (>60) 7.0 mL/min (>60) 5.2 mL/min (>60) Glucose Level 151 MG/DL (74-106) 201 MG/DL (74-106) 182 MG/DL (74-106) Calcium Level 8.8 MG/DL (8.5-10.1) 8.4 MG/DL (8.5-10.1) 9.0 MG/DL (8.5-10.1) Phosphorus Level 7.1 MG/DL (2.5-4.9) 7.5 MG/DL (2.5-4.9) Magnesium Level 2.2 MG/DL (1.8-2.4) 2.5 MG/DL (1.8-2.4) Total Bilirubin 0.3 MG/DL (0.2-1.0) 0.2 MG/DL (0.2-1.0) 0.2 MG/DL (0.2-1.0) Aspartate Amino Transf (AST/SGOT) 36 U/L (15-37) 32 U/L (15-37) 36 U/L (15-37) Alanine Aminotransferase (ALT/SGPT) 21 U/L (12-78) 16 U/L (12-78) 17 U/L (12-78) Alkaline Phosphatase 82 U/L (46-116) 81 U/L (46-116) 93 U/L (46-116) Troponin I 0.058 ng/mL (0.000-0.056) 0.012 ng/mL (0.000-0.056) C-Reactive Protein, Quantitative 31.9 mg/dL (0.00-0.90) 40.1 mg/dL (0.00-0.90) Total Protein 8.7 G/DL (6.4-8.2) 8.1 G/DL (6.4-8.2) 8.8 G/DL (6.4-8.2) Albumin 2.0 G/DL (3.4-5.0) 1.9 G/DL (3.4-5.0) 2.0 G/DL (3.4-5.0) Globulin 6.7 g/dL 6.2 g/dL 6.8 g/dL Albumin/Globulin Ratio 0.3 (1.0-2.7) 0.3 (1.0-2.7) 0.3 (1.0-2.7) Metamyelocytes % 1 % (0-0) Myelocytes % 1 % (0-0) Pro-B-Type Natriuretic Peptide 12028 pg/mL (0-125) Test 06/06/19 20:10 06/07/19 04:37 Arterial Blood pH 7.300 (7.350-7.450) Arterial Blood Partial Pressure CO2 30.5 mmHg (35.0-45.0) Arterial Blood Partial Pressure O2 101.0 mmHg (75.0-100.0) Arterial Blood HCO3 14.9 mmol/L (22.0-26.0) Arterial Blood Oxygen Saturation 96.8 % (95-100) Arterial Blood Base Excess -10.3 (-2-2) Kosta Test Positive White Blood Count 25.6 K/UL (4.8-10.8) Red Blood Count 2.54 M/UL (4.70-6.10) Hemoglobin 7.9 G/DL (14.2-18.0) Hematocrit 23.3 % (42.0-52.0) Mean Corpuscular Volume 92 FL (80-99) Mean Corpuscular Hemoglobin 31.1 PG (27.0-31.0) Mean Corpuscular Hemoglobin Concent 33.9 G/DL (32.0-36.0) Red Cell Distribution Width 13.2 % (11.6-14.8) Platelet Count 297 K/UL (150-450) Mean Platelet Volume 7.1 FL (6.5-10.1) Neutrophils (%) (Auto) % (45.0-75.0) Lymphocytes (%) (Auto) % (20.0-45.0) Monocytes (%) (Auto) % (1.0-10.0) Eosinophils (%) (Auto) % (0.0-3.0) Basophils (%) (Auto) % (0.0-2.0) Sodium Level 144 MMOL/L (136-145) Potassium Level 4.6 MMOL/L (3.5-5.1) Chloride Level 104 MMOL/L (98-107) Carbon Dioxide Level 16 MMOL/L (21-32) Anion Gap 24 mmol/L (5-15) Blood Urea Nitrogen 75 mg/dL (7-18) Creatinine 8.2 MG/DL (0.55-1.30) Estimat Glomerular Filtration Rate 6.6 mL/min (>60) Glucose Level 149 MG/DL (74-106) Calcium Level 9.6 MG/DL (8.5-10.1) Phosphorus Level 8.7 MG/DL (2.5-4.9) Total Bilirubin 0.4 MG/DL (0.2-1.0) Aspartate Amino Transf (AST/SGOT) 42 U/L (15-37) Alanine Aminotransferase (ALT/SGPT) 8 U/L (12-78) Alkaline Phosphatase 87 U/L (46-116) Troponin I 0.004 ng/mL (0.000-0.056) Pro-B-Type Natriuretic Peptide 9119 pg/mL (0-125) Total Protein 9.4 G/DL (6.4-8.2) Albumin 2.7 G/DL (3.4-5.0) Globulin 6.7 g/dL Albumin/Globulin Ratio 0.4 (1.0-2.7) Height (Feet): 6 Height (Inches): 1.00 Weight (Pounds): 207 Objective Sp02 EP Interpretation: reviewed, normal General: no apparent distress, alert, GCS 15, non-toxic Head: normocephalic, atraumatic Heent: bilateral eye normal inspection, bilateral eye PERRL Respiratory: normal breath sounds, no respiratory distress, NRB+ Cardiovascular: regular rate, rhythm, no edema Gastrointestinal: normal inspection, soft, non-distended Rectal: deferred Musculoskeletal: normal range of motion, non-tender Neurologic: alert, motor strength/tone normal, sensory intact, responsive, speech normal Psychiatric: mood/affect normal, no suicidal/homicidal ideation Skin: Decubitus/Ulcer - See RN skin exam. : jamaal+ Greg Cabral MD Jun 07, 2019 07:02
[2019-06-07] MEDS: Wixela 100/50 Inhaler - 60 dose INH SCH ×2 (07:27→18:23)
[2019-06-07] MEDS ORDERED: Carvedilol 25mg Tab ORAL SCH (09:00)
[2019-06-07] MEDS ORDERED: Sodium Citrate 30ml ORAL SCH (09:00)
[2019-06-07] MEDS ORDERED: Docusate 100mg cap ORAL SCH (09:00)
[2019-06-07] MEDS ORDERED: Pantoprazole Inj IVP SCH (09:00)
[2019-06-07] MEDS: Enoxaparin 30mg Inj SUBQ SCH (09:08)
[2019-06-07] MEDS: D5W IV SCH ×2 (10:00→20:26)
[2019-06-07] MEDS: NOREPINEPHRINE BITARTRATE IV SCH ×2 (10:00→20:26)
--- NOTE | 2019-06-07 10:11 | Nephrology Progress Note ---
Assessment/Plan Problem List: (1) CASSANDRA (acute kidney injury) (2) Anemia in chronic kidney disease (CKD) (3) HTN (hypertension) (4) Suspected COVID-19 virus infection Assessment Acute renal failure most likely superimposed on chronic kidney disease Suspected COVID-19 virus infection Possible Pneumonia, lymphopenia, elevated AST Cardiomegaly, possible CHF COPD Hypertension Anemia, most likely related to chronic kidney disease Plan Positive for COVID 19 Patient received dialysis last evening June 05, next dialysis June 07 Patient is doing poorly, septic, white blood cells are rising, hypotensive on pressors We will keep n.p.o. NG tube for medications, and change medication to IV as needed Patient remains full code Previously: Patient pulled out his femoral catheter yesterday June 03 which was reinserted by Dr. Mast Patient scheduled for dialysis again June 04, which again was not done due to dialysis nurse citing catheter malfunction Meanwhile continue management per ID, pulmonary , and psych. Meanwhile white blood cell count is rising. Patient blood pressure borderline low. Will check ABG Previously May 31 : I believe patient need dialysis treatment He however needs to competency assessment if can make decisions or not I will communicate with Dr. Mulligan Previously: Per pulmonary and ID advice Adjust blood pressure medication Renal diet Anemia work-up 2D echocardiogram refused Kidney ultrasound refused Jules catheter Urine studies Per orders Subjective ROS Limited/Unobtainable: No Interval Events/Complaints Patient is now in ICU Constitutional: Reports: malaise, weakness Objective Objective Last 24 Hour Vital Signs Date Time Temp Pulse Resp B/P (MAP) Pulse Ox O2 Delivery O2 Flow Rate FiO2 06/07/19 10:00 91/61 06/07/19 09:30 81 35 109/63 (78) 98 06/07/19 09:00 77 30 111/50 (70) 100 06/07/19 08:30 81 30 109/65 (80) 93 06/07/19 08:00 98.4 80 31 107/58 (74) 98 06/07/19 08:00 15.0 06/07/19 08:00 75 06/07/19 07:31 75 34 97 Non-Rebreather 15.0 100 06/07/19 07:31 75 34 97 Non-Rebreather 15.0 100 06/07/19 07:30 74 30 95/57 (70) 98 06/07/19 07:27 71 26 100 Non-Rebreather 15.0 100 06/07/19 07:25 73 27 100 Non-Rebreather 15.0 100 06/07/19 07:00 95/57 06/07/19 07:00 70 28 95/57 (70) 100 06/07/19 06:30 77 28 105/59 (74) 100 06/07/19 06:15 74 28 91/60 (70) 100 06/07/19 06:01 73 28 90/55 (67) 100 06/07/19 06:00 96/57 06/07/19 06:00 73 28 89/60 (70) 100 06/07/19 05:59 110/52 06/07/19 05:30 71 23 84/59 (67) 100 06/07/19 05:00 78 26 115/61 (79) 100 06/07/19 05:00 89/60 06/07/19 04:30 77 28 88/56 (67) 100 06/07/19 04:00 15.0 06/07/19 04:00 76 06/07/19 04:00 Non-Rebreather 15.0 Non-Rebreather 15.0 06/07/19 04:00 98.6 74 30 98/51 (67) 100 06/07/19 04:00 99/53 06/07/19 03:30 91 35 104/68 (80) 88 06/07/19 03:22 81 33 94 Non-Rebreather 15.0 100 06/07/19 03:21 82 33 93 Non-Rebreather 15.0 100 06/07/19 03:00 77 30 109/56 (73) 94 06/07/19 03:00 99/54 06/07/19 02:47 111/64 06/07/19 02:30 94 36 117/64 (81) 86 06/07/19 02:00 80 34 109/59 (76) 93 06/07/19 01:30 84 40 103/60 (74) 88 06/07/19 01:00 96/50 06/07/19 01:00 79 32 102/52 (69) 92 06/07/19 00:30 97 39 123/66 (85) 85 06/07/19 00:00 88 06/07/19 00:00 101/53 06/07/19 00:00 98.0 88 34 117/69 (85) 90 06/07/19 00:00 Non-Rebreather 15.0 Non-Rebreather 15.0 06/06/19 23:59 87 30 92 Non-Rebreather 15.0 100 06/06/19 23:59 86 32 93 Non-Rebreather 15.0 100 06/06/19 23:30 94 42 108/57 (74) 87 06/06/19 23:00 107/54 06/06/19 23:00 83 37 93/62 (72) 94 06/06/19 22:30 77/50 06/06/19 22:30 77 37 83/47 (59) 95 06/06/19 22:02 75/48 06/06/19 22:00 82 36 76/48 (57) 94 06/06/19 22:00 75/48 06/06/19 21:30 85 30 99/53 (68) 92 06/06/19 21:15 98.2 85 30 99/53 (68) 88 06/06/19 20:00 98.4 92 26 71/35 (47) 95 06/06/19 20:00 Non-Rebreather 15.0 Non-Rebreather 15.0 06/06/19 20:00 15.0 06/06/19 19:25 90 06/06/19 16:00 15.0 06/06/19 16:00 Non-Rebreather 15.0 06/06/19 15:33 100 06/06/19 14:00 95/60 06/06/19 12:00 15.0 06/06/19 12:00 Non-Rebreather 15.0 06/06/19 12:00 97.7 76 24 95/60 (72) 98 06/06/19 11:53 91 Intake and Output 06/06/19 06/07/19 19:00 07:00 Intake Total 255 ml 375.0 ml Output Total 2050 ml 1210 ml Balance -1795 ml -835.0 ml Intake Oral 200 ml IV Total 55 ml 375.0 ml Output Urine Total 50 ml 210 ml Hemodialysis UF 2000 ml 1000 ml Laboratory Tests 06/06/19 20:10: Arterial Blood pH 7.300L, Arterial Blood Partial Pressure CO2 30.5L, Arterial Blood Partial Pressure O2 101.0H, Arterial Blood HCO3 14.9*L, Arterial Blood Oxygen Saturation 96.8, Arterial Blood Base Excess -10.3*L, Kosta Test Positive 06/07/19 04:37: White Blood Count 25.6*H, Red Blood Count 2.54L, Hemoglobin 7.9L, Hematocrit 23.3L, Mean Corpuscular Volume 92, Mean Corpuscular Hemoglobin 31.1H, Mean Corpuscular Hemoglobin Concent 33.9, Red Cell Distribution Width 13.2, Platelet Count 297, Mean Platelet Volume 7.1, Neutrophils (%) (Auto) , Lymphocytes (%) ( Auto) , Monocytes (%) (Auto) , Eosinophils (%) (Auto) , Basophils (%) (Auto) , Neutrophils % (Manual) [Pending], Lymphocytes % (Manual) [Pending], Platelet Estimate [Pending], Platelet Morphology [Pending], Sodium Level 144, Potassium Level 4.6, Chloride Level 104, Carbon Dioxide Level 16L, Anion Gap 24H, Blood Urea Nitrogen 75H, Creatinine 8.2H, Estimat Glomerular Filtration Rate 6.6, Glucose Level 149H, Calcium Level 9.6, Phosphorus Level 8.7H, Total Bilirubin 0.4, Aspartate Amino Transf (AST/SGOT) 42H, Alanine Aminotransferase (ALT/SGPT) 8L, Alkaline Phosphatase 87, Troponin I 0.004, C-Reactive Protein, Quantitative 38.1H, Pro-B-Type Natriuretic Peptide 9119H, Total Protein 9.4H, Albumin 2.7L, Globulin 6.7, Albumin/Globulin Ratio 0.4L 06/07/19 08:02: Arterial Blood pH 7.296L, Arterial Blood Partial Pressure CO2 31.3L, Arterial Blood Partial Pressure O2 96.1, Arterial Blood HCO3 14.9*L, Arterial Blood Oxygen Saturation 96.0, Arterial Blood Base Excess -10.5*L, Kosta Test Positive Height (Feet): 6 Height (Inches): 1.00 Weight (Pounds): 207 General Appearance: lethargic, other - Hypotensive and on pressors EENT: other - On nonrebreather mask oxygen Cardiovascular: tachycardia Respiratory/Chest: decreased breath sounds Abdomen: distended Objective No change Mic Cole MD Jun 07, 2019 10:11
--- NOTE | 2019-06-07 10:44 | Diagnostic Imaging Report ---
Indication: Shortness of breath Technique: One view of the chest Comparison: 06/04/2019 Findings: Bilateral mid and lower lung infiltrates unchanged. The heart is enlarged. Findings are unchanged Impression: Unchanged, over 3 days, findings as above.
--- NOTE | 2019-06-07 10:53 | Infectious Diseases Prog Note ---
Assessment/Plan Assessment/Plan IMPRESSION: 1. COVID-19 pneumonia 2. MRSA carrier. 3. Chronic kidney disease , end-stage renal disease. 4. COPD. 5. Hypertension. 6. Anemia. 7. Hypothyroidism. 8. Hyperlipidemia. 9. Major depression. 10. Leukocytosis RECOMMENDATIONS: Continue Cefepime Start on IV Vancomycin Finished hydroxychloroquine. Repeat COVID19 test Subjective ROS Limited/Unobtainable: Yes Cardiovascular: Reports: other - tranferred to ICU because of Hypotension , on Levophed Allergies: Coded Allergies: No Known Allergies (Unverified , 05/28/19) Objective Vital Signs Last 24 Hour Vital Signs Date Time Temp Pulse Resp B/P (MAP) Pulse Ox O2 Delivery O2 Flow Rate FiO2 06/07/19 10:00 91/61 06/07/19 09:30 81 35 109/63 (78) 98 06/07/19 09:00 77 30 111/50 (70) 100 06/07/19 08:30 81 30 109/65 (80) 93 06/07/19 08:00 98.4 80 31 107/58 (74) 98 06/07/19 08:00 15.0 06/07/19 08:00 75 06/07/19 07:31 75 34 97 Non-Rebreather 15.0 100 06/07/19 07:31 75 34 97 Non-Rebreather 15.0 100 06/07/19 07:30 74 30 95/57 (70) 98 06/07/19 07:27 71 26 100 Non-Rebreather 15.0 100 06/07/19 07:25 73 27 100 Non-Rebreather 15.0 100 06/07/19 07:00 95/57 06/07/19 07:00 70 28 95/57 (70) 100 06/07/19 06:30 77 28 105/59 (74) 100 06/07/19 06:15 74 28 91/60 (70) 100 06/07/19 06:01 73 28 90/55 (67) 100 06/07/19 06:00 96/57 06/07/19 06:00 73 28 89/60 (70) 100 06/07/19 05:59 110/52 06/07/19 05:30 71 23 84/59 (67) 100 06/07/19 05:00 78 26 115/61 (79) 100 06/07/19 05:00 89/60 06/07/19 04:30 77 28 88/56 (67) 100 06/07/19 04:00 15.0 06/07/19 04:00 76 06/07/19 04:00 Non-Rebreather 15.0 Non-Rebreather 15.0 06/07/19 04:00 98.6 74 30 98/51 (67) 100 06/07/19 04:00 99/53 06/07/19 03:30 91 35 104/68 (80) 88 06/07/19 03:22 81 33 94 Non-Rebreather 15.0 100 06/07/19 03:21 82 33 93 Non-Rebreather 15.0 100 06/07/19 03:00 77 30 109/56 (73) 94 06/07/19 03:00 99/54 06/07/19 02:47 111/64 06/07/19 02:30 94 36 117/64 (81) 86 06/07/19 02:00 80 34 109/59 (76) 93 06/07/19 01:30 84 40 103/60 (74) 88 06/07/19 01:00 96/50 06/07/19 01:00 79 32 102/52 (69) 92 06/07/19 00:30 97 39 123/66 (85) 85 06/07/19 00:00 88 06/07/19 00:00 101/53 06/07/19 00:00 98.0 88 34 117/69 (85) 90 06/07/19 00:00 Non-Rebreather 15.0 Non-Rebreather 15.0 06/06/19 23:59 87 30 92 Non-Rebreather 15.0 100 06/06/19 23:59 86 32 93 Non-Rebreather 15.0 100 06/06/19 23:30 94 42 108/57 (74) 87 06/06/19 23:00 107/54 06/06/19 23:00 83 37 93/62 (72) 94 06/06/19 22:30 77/50 06/06/19 22:30 77 37 83/47 (59) 95 06/06/19 22:02 75/48 06/06/19 22:00 82 36 76/48 (57) 94 4/26/20 22:00 75/48 06/06/19 21:30 85 30 99/53 (68) 92 06/06/19 21:15 98.2 85 30 99/53 (68) 88 06/06/19 20:00 98.4 92 26 71/35 (47) 95 06/06/19 20:00 Non-Rebreather 15.0 Non-Rebreather 15.0 06/06/19 20:00 15.0 06/06/19 19:25 90 06/06/19 16:00 15.0 06/06/19 16:00 Non-Rebreather 15.0 06/06/19 15:33 100 06/06/19 14:00 95/60 06/06/19 12:00 15.0 06/06/19 12:00 Non-Rebreather 15.0 06/06/19 12:00 97.7 76 24 95/60 (72) 98 06/06/19 11:53 91 Height (Feet): 6 Height (Inches): 1.00 Weight (Pounds): 207 HEENT: mucous membranes moist Respiratory/Chest: other - oxygen by rebreathing mask Cardiovascular: normal rate, other - Left femoral Kamlesh's catheter Abdomen: soft, non tender Extremities: no edema Neurologic/Psychiatric: responsive, disoriented Laboratory Tests Test 06/06/19 20:10 06/07/19 04:37 06/07/19 08:02 Arterial Blood pH 7.300 (7.350-7.450) 7.296 (7.350-7.450) Arterial Blood Partial Pressure CO2 30.5 mmHg (35.0-45.0) L 31.3 mmHg (35.0-45.0) L Arterial Blood Partial Pressure O2 101.0 mmHg (75.0-100.0) H 96.1 mmHg (75.0-100.0) Arterial Blood HCO3 14.9 mmol/L (22.0-26.0) *L 14.9 mmol/L (22.0-26.0) *L Arterial Blood Oxygen Saturation 96.8 % (95-100) 96.0 % (95-100) Arterial Blood Base Excess -10.3 (-2-2) *L -10.5 (-2-2) *L Kosta Test Positive Positive White Blood Count 25.6 K/UL (4.8-10.8) *H Red Blood Count 2.54 M/UL (4.70-6.10) L Hemoglobin 7.9 G/DL (14.2-18.0) L Hematocrit 23.3 % (42.0-52.0) L Mean Corpuscular Volume 92 FL (80-99) Mean Corpuscular Hemoglobin 31.1 PG (27.0-31.0) H Mean Corpuscular Hemoglobin Concent 33.9 G/DL (32.0-36.0) Red Cell Distribution Width 13.2 % (11.6-14.8) Platelet Count 297 K/UL (150-450) Mean Platelet Volume 7.1 FL (6.5-10.1) Neutrophils (%) (Auto) % (45.0-75.0) Lymphocytes (%) (Auto) % (20.0-45.0) Monocytes (%) (Auto) % (1.0-10.0) Eosinophils (%) (Auto) % (0.0-3.0) Basophils (%) (Auto) % (0.0-2.0) Differential Total Cells Counted 100 Neutrophils % (Manual) 82 % (45-75) H Lymphocytes % (Manual) 10 % (20-45) L Monocytes % (Manual) 4 % (1-10) Eosinophils % (Manual) 0 % (0-3) Basophils % (Manual) 0 % (0-2) Metamyelocytes % 1 % (0-0) H Myelocytes % 2 % (0-0) H Band Neutrophils 1 % (0-8) Platelet Estimate Adequate Platelet Morphology Normal Polychromasia 1+ Hypochromasia 1+ Sodium Level 144 MMOL/L (136-145) Potassium Level 4.6 MMOL/L (3.5-5.1) Chloride Level 104 MMOL/L (98-107) Carbon Dioxide Level 16 MMOL/L (21-32) L Anion Gap 24 mmol/L (5-15) H Blood Urea Nitrogen 75 mg/dL (7-18) H Creatinine 8.2 MG/DL (0.55-1.30) H Estimat Glomerular Filtration Rate 6.6 mL/min (>60) Glucose Level 149 MG/DL (74-106) H Calcium Level 9.6 MG/DL (8.5-10.1) Phosphorus Level 8.7 MG/DL (2.5-4.9) H Total Bilirubin 0.4 MG/DL (0.2-1.0) Aspartate Amino Transf (AST/SGOT) 42 U/L (15-37) H Alanine Aminotransferase (ALT/SGPT) 8 U/L (12-78) L Alkaline Phosphatase 87 U/L (46-116) Troponin I 0.004 ng/mL (0.000-0.056) C-Reactive Protein, Quantitative 38.1 mg/dL (0.00-0.90) H Pro-B-Type Natriuretic Peptide 9119 pg/mL (0-125) H Total Protein 9.4 G/DL (6.4-8.2) H Albumin 2.7 G/DL (3.4-5.0) L Globulin 6.7 g/dL Albumin/Globulin Ratio 0.4 (1.0-2.7) L Current Medications Medications (Trade) Dose Ordered Sig/Anthony Route PRN Reason Start Time Stop Time Status Last Admin Dose Admin Acetaminophen (Tylenol) 650 mg Q6H PRN ORAL MILD PAIN/Temp >100.5 06/07/19 00:00 07/07/19 00:00 Albumin Human 250 ml @ 0 mls/hr Q0M PRN IV For hypotension 06/06/19 21:15 09/04/19 12:44 Albuterol Sulfate (Proventil MDI) 2 puff Q4HRT INH 06/06/19 23:00 08/30/19 18:59 06/07/19 10:30 Cefepime HCl 1 gm/ Dextrose 55 ml @ 110 mls/hr Q24H IVPB 06/07/19 13:00 06/13/19 12:59 Chlorhexidine Gluconate (Michelle-Hex 2%) 1 applic DAILY@2000 TOPIC 06/07/19 20:00 09/05/19 19:59 Divalproex Sodium (Depakote ER) 500 mg BEDTIME ORAL 06/07/19 21:00 07/01/19 20:59 Docusate Sodium (Colace) 100 mg THREE TIMES A DAY ORAL 06/07/19 09:00 06/28/19 12:59 Enoxaparin Sodium (Lovenox) 30 mg DAILY SUBQ 06/07/19 09:00 08/27/19 08:59 06/07/19 09:08 Epoetin Aftab (Epoetin Aftab(ESRD on dialysis)) 10,000 unit SUBQ 06/07/19 21:00 08/31/19 20:59 Haloperidol Lactate (Haldol) 5 mg Q6H PRN IM Agitation 06/06/19 22:00 07/21/19 21:59 06/07/19 10:05 Hydralazine HCl (Apresoline) 10 mg Q4H PRN IV Blood pressure over 160 systol 06/07/19 10:15 09/05/19 10:14 Norepinephrine Bitartrate 8 mg/ Dextrose 558 ml @ 0 mls/hr Q24H IV 06/07/19 09:00 07/07/19 08:59 06/07/19 10:00 Pantoprazole (Protonix) 40 mg Q12HR IVP 06/07/19 21:00 07/07/19 08:59 Salmeterol Xinafoate/ Fluticasone (Advair 100/50 Diskus) 1 puffs BID INH 06/07/19 09:00 08/27/19 08:59 06/07/19 07:27 Sevelamer Carbonate (Renvela) 1,600 mg THREE TIMES A DAY NG 06/07/19 13:00 09/05/19 12:59 Sodium Citrate (Bicitra) 30 ml Q8HR NG 06/07/19 14:00 06/28/19 11:59 Ted Leyva MD Jun 07, 2019 10:53
[2019-06-07] MEDS: Docusate 100mg/10ml Liq NG SCH ×2 (12:56→18:23)
[2019-06-07] MEDS: Renvela 800mg Pkt NG SCH ×2 (12:56→18:23)
[2019-06-07] MEDS: Cefepime HCl 1 GM in D5W 55 ML IVPB SCH (12:56)
--- NOTE | 2019-06-07 13:51 | Cardiac Electrophysiology PN ---
Assessment/Plan Assessment/Plan 1. Elevated troponin. Initial troponin on May 27 was negative. On May 30, it was also negative; however, on June 01, it was elevated at 0.074. Repeat 0.05. The patient does not have any chest pain. Due to renal failure. Treat medically with aspirin and DC Coreg. EKG showd QT 493 on Plaquenil as well as azithromycin. Plaquenil DCed. ECho still pending 2. Septic shock. On Levophed 12 Mcg. Coreg, hydralazine, amlodipine were DCed 3. End-stage renal disease, on hemodialysis.On dialysis per Dr. Cole. 4. COVID-19 positive pneumonia and lymphopenia. Fu by Dr. Ted Leyva and Dr. Mckeon. 5. MRSA carrier. 6. COPD. 7. Anemia. 8. Depression. 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 Mast put in a new LFV Kamlesh in. Still in Covid isolation. Transferred to ICU for hypotension as now on 12 Mc Levophed and started to new Abx regimen. Objective Last 24 Hour Vital Signs Date Time Temp Pulse Resp B/P (MAP) Pulse Ox O2 Delivery O2 Flow Rate FiO2 06/07/19 13:30 72 21 102/65 (77) 99 06/07/19 13:15 73 24 103/62 (76) 100 06/07/19 13:00 99/54 06/07/19 13:00 74 32 99/54 (69) 96 06/07/19 12:45 72 33 92/62 (72) 97 06/07/19 12:30 81 30 105/52 (69) 94 06/07/19 12:15 73 35 91/61 (71) 93 06/07/19 12:00 98.7 73 33 98/61 (73) 97 06/07/19 12:00 98/61 06/07/19 12:00 15.0 06/07/19 12:00 74 06/07/19 12:00 Non-Rebreather 15.0 06/07/19 11:45 87 44 108/63 (78) 90 06/07/19 11:42 Non-Rebreather 15.0 100 06/07/19 11:42 Non-Rebreather 15.0 100 06/07/19 11:30 76 29 90/60 (70) 100 06/07/19 11:15 76 28 94/53 (67) 100 06/07/19 11:00 67 24 90/61 (71) 100 06/07/19 11:00 90/61 06/07/19 10:30 73 31 100/57 (71) 100 06/07/19 10:00 81 29 109/59 (76) 98 06/07/19 10:00 91/61 06/07/19 10:00 91/61 06/07/19 09:30 81 35 109/63 (78) 98 06/07/19 09:00 77 30 111/50 (70) 100 06/07/19 09:00 84/57 06/07/19 08:30 81 30 109/65 (80) 93 06/07/19 08:00 98.4 80 31 107/58 (74) 98 06/07/19 08:00 Non-Rebreather 15.0 06/07/19 08:00 98/63 06/07/19 08:00 15.0 06/07/19 08:00 75 06/07/19 07:31 75 34 97 Non-Rebreather 15.0 100 06/07/19 07:31 75 34 97 Non-Rebreather 15.0 100 06/07/19 07:30 74 30 95/57 (70) 98 06/07/19 07:27 71 26 100 Non-Rebreather 15.0 100 06/07/19 07:25 73 27 100 Non-Rebreather 15.0 100 06/07/19 07:00 95/57 06/07/19 07:00 70 28 95/57 (70) 100 06/07/19 06:30 77 28 105/59 (74) 100 06/07/19 06:15 74 28 91/60 (70) 100 06/07/19 06:01 73 28 90/55 (67) 100 06/07/19 06:00 96/57 06/07/19 06:00 73 28 89/60 (70) 100 06/07/19 05:59 110/52 06/07/19 05:30 71 23 84/59 (67) 100 06/07/19 05:00 78 26 115/61 (79) 100 06/07/19 05:00 89/60 06/07/19 04:30 77 28 88/56 (67) 100 06/07/19 04:00 15.0 06/07/19 04:00 76 06/07/19 04:00 Non-Rebreather 15.0 Non-Rebreather 15.0 06/07/19 04:00 98.6 74 30 98/51 (67) 100 06/07/19 04:00 99/53 06/07/19 03:30 91 35 104/68 (80) 88 06/07/19 03:22 81 33 94 Non-Rebreather 15.0 100 06/07/19 03:21 82 33 93 Non-Rebreather 15.0 100 06/07/19 03:00 77 30 109/56 (73) 94 06/07/19 03:00 99/54 06/07/19 02:47 111/64 06/07/19 02:30 94 36 117/64 (81) 86 06/07/19 02:00 80 34 109/59 (76) 93 06/07/19 01:30 84 40 103/60 (74) 88 06/07/19 01:00 96/50 06/07/19 01:00 79 32 102/52 (69) 92 06/07/19 00:30 97 39 123/66 (85) 85 06/07/19 00:00 88 06/07/19 00:00 101/53 06/07/19 00:00 98.0 88 34 117/69 (85) 90 06/07/19 00:00 Non-Rebreather 15.0 Non-Rebreather 15.0 06/06/19 23:59 87 30 92 Non-Rebreather 15.0 100 06/06/19 23:59 86 32 93 Non-Rebreather 15.0 100 06/06/19 23:30 94 42 108/57 (74) 87 06/06/19 23:00 107/54 06/06/19 23:00 83 37 93/62 (72) 94 06/06/19 22:30 77/50 06/06/19 22:30 77 37 83/47 (59) 95 06/06/19 22:02 75/48 06/06/19 22:00 82 36 76/48 (57) 94 06/06/19 22:00 75/48 06/06/19 21:30 85 30 99/53 (68) 92 06/06/19 21:15 98.2 85 30 99/53 (68) 88 06/06/19 20:00 98.4 92 26 71/35 (47) 95 06/06/19 20:00 Non-Rebreather 15.0 Non-Rebreather 15.0 06/06/19 20:00 15.0 06/06/19 19:25 90 06/06/19 16:00 15.0 06/06/19 16:00 Non-Rebreather 15.0 06/06/19 15:33 100 06/06/19 14:00 95/60 Intake and Output 06/06/19 06/07/19 19:00 07:00 Intake Total 255 ml 375.0 ml Output Total 2050 ml 1210 ml Balance -1795 ml -835.0 ml Intake Oral 200 ml IV Total 55 ml 375.0 ml Output Urine Total 50 ml 210 ml Hemodialysis UF 2000 ml 1000 ml Laboratory Tests Test 06/06/19 20:10 06/07/19 04:37 06/07/19 08:02 Arterial Blood pH 7.300 (7.350-7.450) 7.296 (7.350-7.450) Arterial Blood Partial Pressure CO2 30.5 mmHg (35.0-45.0) L 31.3 mmHg (35.0-45.0) L Arterial Blood Partial Pressure O2 101.0 mmHg (75.0-100.0) H 96.1 mmHg (75.0-100.0) Arterial Blood HCO3 14.9 mmol/L (22.0-26.0) *L 14.9 mmol/L (22.0-26.0) *L Arterial Blood Oxygen Saturation 96.8 % (95-100) 96.0 % (95-100) Arterial Blood Base Excess -10.3 (-2-2) *L -10.5 (-2-2) *L Kosta Test Positive Positive White Blood Count 25.6 K/UL (4.8-10.8) *H Red Blood Count 2.54 M/UL (4.70-6.10) L Hemoglobin 7.9 G/DL (14.2-18.0) L Hematocrit 23.3 % (42.0-52.0) L Mean Corpuscular Volume 92 FL (80-99) Mean Corpuscular Hemoglobin 31.1 PG (27.0-31.0) H Mean Corpuscular Hemoglobin Concent 33.9 G/DL (32.0-36.0) Red Cell Distribution Width 13.2 % (11.6-14.8) Platelet Count 297 K/UL (150-450) Mean Platelet Volume 7.1 FL (6.5-10.1) Neutrophils (%) (Auto) % (45.0-75.0) Lymphocytes (%) (Auto) % (20.0-45.0) Monocytes (%) (Auto) % (1.0-10.0) Eosinophils (%) (Auto) % (0.0-3.0) Basophils (%) (Auto) % (0.0-2.0) Differential Total Cells Counted 100 Neutrophils % (Manual) 82 % (45-75) H Lymphocytes % (Manual) 10 % (20-45) L Monocytes % (Manual) 4 % (1-10) Eosinophils % (Manual) 0 % (0-3) Basophils % (Manual) 0 % (0-2) Metamyelocytes % 1 % (0-0) H Myelocytes % 2 % (0-0) H Band Neutrophils 1 % (0-8) Platelet Estimate Adequate Platelet Morphology Normal Polychromasia 1+ Hypochromasia 1+ Sodium Level 144 MMOL/L (136-145) Potassium Level 4.6 MMOL/L (3.5-5.1) Chloride Level 104 MMOL/L (98-107) Carbon Dioxide Level 16 MMOL/L (21-32) L Anion Gap 24 mmol/L (5-15) H Blood Urea Nitrogen 75 mg/dL (7-18) H Creatinine 8.2 MG/DL (0.55-1.30) H Estimat Glomerular Filtration Rate 6.6 mL/min (>60) Glucose Level 149 MG/DL (74-106) H Calcium Level 9.6 MG/DL (8.5-10.1) Phosphorus Level 8.7 MG/DL (2.5-4.9) H Total Bilirubin 0.4 MG/DL (0.2-1.0) Aspartate Amino Transf (AST/SGOT) 42 U/L (15-37) H Alanine Aminotransferase (ALT/SGPT) 8 U/L (12-78) L Alkaline Phosphatase 87 U/L (46-116) Troponin I 0.004 ng/mL (0.000-0.056) C-Reactive Protein, Quantitative 38.1 mg/dL (0.00-0.90) H Pro-B-Type Natriuretic Peptide 9119 pg/mL (0-125) H Total Protein 9.4 G/DL (6.4-8.2) H Albumin 2.7 G/DL (3.4-5.0) L Globulin 6.7 g/dL Albumin/Globulin Ratio 0.4 (1.0-2.7) L Objective HEAD AND NECK: No JVD. LUNGS: Decreased breath sounds. CARDIOVASCULAR: Shows regular S1 and S2. Tachycardic. ABDOMEN: Soft. EXTREMITIES: No pitting edema. New Left FV Gio Engle MD Jun 07, 2019 13:51
[2019-06-07] MEDS: Sodium Citrate 30ml NG SCH ×2 (14:00→21:31)
[2019-06-07] MEDS ORDERED: Vancomycin 1.5gm/D5W 275ml IVPB ONE ×2 (15:00)
--- NOTE | 2019-06-07 15:10 | Diagnostic Imaging Report ---
Indication: Post nasogastric tube placement Technique: One view of the upper abdomen Comparison: none Findings: There is a nasogastric tube in place, tip projected at the level gastric fundus, proximal port just beyond the gastroesophageal junction. The tip of a left groin dialysis catheter is noted at the expected level of the iliac venous confluence.. The bowel gas pattern is unremarkable. Included lower chest demonstrates extensive pulmonary parenchymal disease Impression: Satisfactory nasogastric intubation Other findings as noted
--- NOTE | 2019-06-07 16:45 | Surgery Progress Note ---
Surgery Progress Note Subjective Procedure Performed left femoral temporary HD catheter placement Additional Comments ill appearing received HD labs noted more subdued today Objective Last 24 Hour Vital Signs Date Time Temp Pulse Resp B/P (MAP) Pulse Ox O2 Delivery O2 Flow Rate FiO2 06/07/19 16:00 71 06/07/19 16:00 Non-Rebreather 15.0 06/07/19 16:00 15.0 06/07/19 15:30 Non-Rebreather 15.0 100 06/07/19 15:30 Non-Rebreather 15.0 100 06/07/19 15:00 71 20 100/72 (81) 100 06/07/19 15:00 100/72 06/07/19 14:30 72 15 101/64 (76) 100 06/07/19 14:00 103/62 06/07/19 14:00 69 15 103/62 (76) 100 06/07/19 13:30 72 21 102/65 (77) 99 06/07/19 13:15 73 24 103/62 (76) 100 06/07/19 13:00 99/54 06/07/19 13:00 74 32 99/54 (69) 96 06/07/19 12:45 72 33 92/62 (72) 97 06/07/19 12:30 81 30 105/52 (69) 94 06/07/19 12:15 73 35 91/61 (71) 93 06/07/19 12:00 98.7 73 33 98/61 (73) 97 06/07/19 12:00 98/61 06/07/19 12:00 15.0 06/07/19 12:00 74 06/07/19 12:00 Non-Rebreather 15.0 06/07/19 11:45 87 44 108/63 (78) 90 06/07/19 11:42 Non-Rebreather 15.0 100 06/07/19 11:42 Non-Rebreather 15.0 100 06/07/19 11:30 76 29 90/60 (70) 100 06/07/19 11:15 76 28 94/53 (67) 100 06/07/19 11:00 67 24 90/61 (71) 100 06/07/19 11:00 90/61 06/07/19 10:30 73 31 100/57 (71) 100 06/07/19 10:00 81 29 109/59 (76) 98 06/07/19 10:00 91/61 06/07/19 10:00 91/61 06/07/19 09:30 81 35 109/63 (78) 98 06/07/19 09:00 77 30 111/50 (70) 100 06/07/19 09:00 84/57 06/07/19 08:30 81 30 109/65 (80) 93 06/07/19 08:00 98.4 80 31 107/58 (74) 98 06/07/19 08:00 Non-Rebreather 15.0 06/07/19 08:00 98/63 06/07/19 08:00 15.0 06/07/19 08:00 75 06/07/19 07:31 75 34 97 Non-Rebreather 15.0 100 06/07/19 07:31 75 34 97 Non-Rebreather 15.0 100 06/07/19 07:30 74 30 95/57 (70) 98 06/07/19 07:27 71 26 100 Non-Rebreather 15.0 100 06/07/19 07:25 73 27 100 Non-Rebreather 15.0 100 06/07/19 07:00 95/57 06/07/19 07:00 70 28 95/57 (70) 100 06/07/19 06:30 77 28 105/59 (74) 100 06/07/19 06:15 74 28 91/60 (70) 100 06/07/19 06:01 73 28 90/55 (67) 100 06/07/19 06:00 96/57 06/07/19 06:00 73 28 89/60 (70) 100 06/07/19 05:59 110/52 06/07/19 05:30 71 23 84/59 (67) 100 06/07/19 05:00 78 26 115/61 (79) 100 06/07/19 05:00 89/60 06/07/19 04:30 77 28 88/56 (67) 100 06/07/19 04:00 15.0 06/07/19 04:00 76 06/07/19 04:00 Non-Rebreather 15.0 Non-Rebreather 15.0 06/07/19 04:00 98.6 74 30 98/51 (67) 100 06/07/19 04:00 99/53 06/07/19 03:30 91 35 104/68 (80) 88 06/07/19 03:22 81 33 94 Non-Rebreather 15.0 100 06/07/19 03:21 82 33 93 Non-Rebreather 15.0 100 06/07/19 03:00 77 30 109/56 (73) 94 06/07/19 03:00 99/54 06/07/19 02:47 111/64 06/07/19 02:30 94 36 117/64 (81) 86 06/07/19 02:00 80 34 109/59 (76) 93 06/07/19 01:30 84 40 103/60 (74) 88 06/07/19 01:00 96/50 06/07/19 01:00 79 32 102/52 (69) 92 06/07/19 00:30 97 39 123/66 (85) 85 06/07/19 00:00 88 06/07/19 00:00 101/53 06/07/19 00:00 98.0 88 34 117/69 (85) 90 06/07/19 00:00 Non-Rebreather 15.0 Non-Rebreather 15.0 06/06/19 23:59 87 30 92 Non-Rebreather 15.0 100 06/06/19 23:59 86 32 93 Non-Rebreather 15.0 100 06/06/19 23:30 94 42 108/57 (74) 87 06/06/19 23:00 107/54 06/06/19 23:00 83 37 93/62 (72) 94 06/06/19 22:30 77/50 06/06/19 22:30 77 37 83/47 (59) 95 06/06/19 22:02 75/48 06/06/19 22:00 82 36 76/48 (57) 94 06/06/19 22:00 75/48 06/06/19 21:30 85 30 99/53 (68) 92 06/06/19 21:15 98.2 85 30 99/53 (68) 88 06/06/19 20:00 98.4 92 26 71/35 (47) 95 06/06/19 20:00 Non-Rebreather 15.0 Non-Rebreather 15.0 06/06/19 20:00 15.0 06/06/19 19:25 90 I&O Intake and Output 06/06/19 06/07/19 19:00 07:00 Intake Total 255 ml 375.0 ml Output Total 2050 ml 1210 ml Balance -1795 ml -835.0 ml Intake Oral 200 ml IV Total 55 ml 375.0 ml Output Urine Total 50 ml 210 ml Hemodialysis UF 2000 ml 1000 ml Dressing: other Wound: other Drains: other Cardiovascular: RSR Respiratory: decreased breath sounds Abdomen: soft, non-tender, present bowel sounds Extremities: no cyanosis Laboratory Tests Test 06/06/19 20:10 06/07/19 04:37 06/07/19 08:02 Arterial Blood pH 7.300 (7.350-7.450) 7.296 (7.350-7.450) Arterial Blood Partial Pressure CO2 30.5 mmHg (35.0-45.0) L 31.3 mmHg (35.0-45.0) L Arterial Blood Partial Pressure O2 101.0 mmHg (75.0-100.0) H 96.1 mmHg (75.0-100.0) Arterial Blood HCO3 14.9 mmol/L (22.0-26.0) *L 14.9 mmol/L (22.0-26.0) *L Arterial Blood Oxygen Saturation 96.8 % (95-100) 96.0 % (95-100) Arterial Blood Base Excess -10.3 (-2-2) *L -10.5 (-2-2) *L Kosta Test Positive Positive White Blood Count 25.6 K/UL (4.8-10.8) *H Red Blood Count 2.54 M/UL (4.70-6.10) L Hemoglobin 7.9 G/DL (14.2-18.0) L Hematocrit 23.3 % (42.0-52.0) L Mean Corpuscular Volume 92 FL (80-99) Mean Corpuscular Hemoglobin 31.1 PG (27.0-31.0) H Mean Corpuscular Hemoglobin Concent 33.9 G/DL (32.0-36.0) Red Cell Distribution Width 13.2 % (11.6-14.8) Platelet Count 297 K/UL (150-450) Mean Platelet Volume 7.1 FL (6.5-10.1) Neutrophils (%) (Auto) % (45.0-75.0) Lymphocytes (%) (Auto) % (20.0-45.0) Monocytes (%) (Auto) % (1.0-10.0) Eosinophils (%) (Auto) % (0.0-3.0) Basophils (%) (Auto) % (0.0-2.0) Differential Total Cells Counted 100 Neutrophils % (Manual) 82 % (45-75) H Lymphocytes % (Manual) 10 % (20-45) L Monocytes % (Manual) 4 % (1-10) Eosinophils % (Manual) 0 % (0-3) Basophils % (Manual) 0 % (0-2) Metamyelocytes % 1 % (0-0) H Myelocytes % 2 % (0-0) H Band Neutrophils 1 % (0-8) Platelet Estimate Adequate Platelet Morphology Normal Polychromasia 1+ Hypochromasia 1+ Sodium Level 144 MMOL/L (136-145) Potassium Level 4.6 MMOL/L (3.5-5.1) Chloride Level 104 MMOL/L (98-107) Carbon Dioxide Level 16 MMOL/L (21-32) L Anion Gap 24 mmol/L (5-15) H Blood Urea Nitrogen 75 mg/dL (7-18) H Creatinine 8.2 MG/DL (0.55-1.30) H Estimat Glomerular Filtration Rate 6.6 mL/min (>60) Glucose Level 149 MG/DL (74-106) H Calcium Level 9.6 MG/DL (8.5-10.1) Phosphorus Level 8.7 MG/DL (2.5-4.9) H Total Bilirubin 0.4 MG/DL (0.2-1.0) Aspartate Amino Transf (AST/SGOT) 42 U/L (15-37) H Alanine Aminotransferase (ALT/SGPT) 8 U/L (12-78) L Alkaline Phosphatase 87 U/L (46-116) Troponin I 0.004 ng/mL (0.000-0.056) C-Reactive Protein, Quantitative 38.1 mg/dL (0.00-0.90) H Pro-B-Type Natriuretic Peptide 9119 pg/mL (0-125) H Total Protein 9.4 G/DL (6.4-8.2) H Albumin 2.7 G/DL (3.4-5.0) L Globulin 6.7 g/dL Albumin/Globulin Ratio 0.4 (1.0-2.7) L Plan Problems: (1) Suspected COVID-19 virus infection (2) HTN (hypertension) (3) CASSANDRA (acute kidney injury) Assessment & Plan: Needs urgent HD needs access patient okay and consented see note will follow with recs new line placed discussed with team and nephrology HD line functional when checked has TPA now please use appropriately (4) Anemia in chronic kidney disease (CKD) (5) Anemia (6) Renal failure (7) Suspected COVID-19 virus infection (8) COVID-19 Assessment & Plan: COVID + c diff negative febrile leukocytosis renal insufficiency see above cont resp care Rx as per Yaniv Clarke Jun 07, 2019 16:45
[2019-06-07] MEDS: Dyna-Hex 2% Top Sol 2oz TOPIC SCH (19:51)
[2019-06-07] MEDS: Pantoprazole Inj IVP SCH (21:31)
[2019-06-07] MEDS: Epoetin Alfa-EPBX(ESRD on dialysis)10,000 unit/ml vial SUBQ SCH (21:32)
[2019-06-07] MEDS: Depakote ER 500mg tab ORAL SCH (21:32)
--- NOTE | 2019-06-07 22:07 | General Progress Note ---
Assessment/Plan Problem List: (1) Anemia ICD Codes: D64.9 - Anemia, unspecified SNOMED: 529550796 (2) Renal failure ICD Codes: N19 - Unspecified kidney failure SNOMED: 13959977 (3) Suspected COVID-19 virus infection ICD Codes: R68.89 - Other general symptoms and signs SNOMED: 897139384 (4) HTN (hypertension) ICD Codes: I10 - Essential (primary) hypertension SNOMED: 14644456 (5) CASSANDRA (acute kidney injury) ICD Codes: N17.9 - Acute kidney failure, unspecified SNOMED: 8673189, 11135449 (6) Anemia in chronic kidney disease (CKD) ICD Codes: N18.9 - Chronic kidney disease, unspecified; D63.1 - Anemia in chronic kidney disease SNOMED: 563554196 (7) Suspected COVID-19 virus infection ICD Codes: R68.89 - Other general symptoms and signs SNOMED: 569116959 Status: progressing Assessment/Plan: renal failure anemia hb7.9 s/p fluid overload worsening leukocytosis sepsis continue supportive therapy poor prognosis on top of cri hypokalemia diaylsis per dr moreno no Subjective ROS Limited/Unobtainable: Yes Allergies: Coded Allergies: No Known Allergies (Unverified , 05/28/19) Objective Last 24 Hour Vital Signs Date Time Temp Pulse Resp B/P (MAP) Pulse Ox O2 Delivery O2 Flow Rate FiO2 06/07/19 20:26 107/57 06/07/19 19:21 72 29 106/59 (75) 100 06/07/19 19:17 65 27 83/50 (61) 100 06/07/19 19:15 64 28 84/50 (61) 100 06/07/19 19:00 85/51 06/07/19 19:00 66 27 85/51 (62) 100 06/07/19 18:57 Non-Rebreather 15.0 06/07/19 18:45 74 33 111/61 (78) 99 06/07/19 18:30 78 33 126/72 (90) 98 06/07/19 18:00 71 25 123/63 (83) 100 06/07/19 18:00 123/63 06/07/19 17:30 80 31 125/70 (88) 99 4/27/20 17:00 125/64 06/07/19 17:00 73 26 125/64 (84) 100 06/07/19 16:30 69 25 119/64 (82) 100 06/07/19 16:00 71 06/07/19 16:00 98.9 69 22 100/60 (73) 98 06/07/19 16:00 Non-Rebreather 15.0 06/07/19 16:00 100/60 06/07/19 16:00 15.0 06/07/19 15:30 Non-Rebreather 15.0 100 06/07/19 15:30 79 23 118/71 (87) 98 06/07/19 15:30 Non-Rebreather 15.0 100 06/07/19 15:00 71 20 100/72 (81) 100 06/07/19 15:00 100/72 06/07/19 14:30 72 15 101/64 (76) 100 06/07/19 14:00 103/62 06/07/19 14:00 69 15 103/62 (76) 100 06/07/19 13:30 72 21 102/65 (77) 99 06/07/19 13:15 73 24 103/62 (76) 100 06/07/19 13:00 99/54 06/07/19 13:00 74 32 99/54 (69) 96 06/07/19 12:45 72 33 92/62 (72) 97 06/07/19 12:30 81 30 105/52 (69) 94 06/07/19 12:15 73 35 91/61 (71) 93 06/07/19 12:00 98.7 73 33 98/61 (73) 97 06/07/19 12:00 98/61 06/07/19 12:00 15.0 06/07/19 12:00 74 06/07/19 12:00 Non-Rebreather 15.0 06/07/19 11:45 87 44 108/63 (78) 90 06/07/19 11:42 Non-Rebreather 15.0 100 06/07/19 11:42 Non-Rebreather 15.0 100 06/07/19 11:30 76 29 90/60 (70) 100 06/07/19 11:15 76 28 94/53 (67) 100 06/07/19 11:00 67 24 90/61 (71) 100 06/07/19 11:00 90/61 06/07/19 10:30 73 31 100/57 (71) 100 06/07/19 10:00 81 29 109/59 (76) 98 06/07/19 10:00 91/61 06/07/19 10:00 91/61 06/07/19 09:30 81 35 109/63 (78) 98 06/07/19 09:00 77 30 111/50 (70) 100 06/07/19 09:00 84/57 06/07/19 08:30 81 30 109/65 (80) 93 06/07/19 08:00 98.4 80 31 107/58 (74) 98 06/07/19 08:00 Non-Rebreather 15.0 06/07/19 08:00 98/63 06/07/19 08:00 15.0 06/07/19 08:00 75 06/07/19 07:31 75 34 97 Non-Rebreather 15.0 100 06/07/19 07:31 75 34 97 Non-Rebreather 15.0 100 06/07/19 07:30 74 30 95/57 (70) 98 06/07/19 07:27 71 26 100 Non-Rebreather 15.0 100 06/07/19 07:25 73 27 100 Non-Rebreather 15.0 100 06/07/19 07:00 95/57 06/07/19 07:00 70 28 95/57 (70) 100 06/07/19 06:30 77 28 105/59 (74) 100 06/07/19 06:15 74 28 91/60 (70) 100 06/07/19 06:01 73 28 90/55 (67) 100 06/07/19 06:00 96/57 06/07/19 06:00 73 28 89/60 (70) 100 06/07/19 05:59 110/52 06/07/19 05:30 71 23 84/59 (67) 100 06/07/19 05:00 78 26 115/61 (79) 100 06/07/19 05:00 89/60 06/07/19 04:30 77 28 88/56 (67) 100 06/07/19 04:00 15.0 06/07/19 04:00 76 06/07/19 04:00 Non-Rebreather 15.0 Non-Rebreather 15.0 06/07/19 04:00 98.6 74 30 98/51 (67) 100 06/07/19 04:00 99/53 06/07/19 03:30 91 35 104/68 (80) 88 06/07/19 03:22 81 33 94 Non-Rebreather 15.0 100 06/07/19 03:21 82 33 93 Non-Rebreather 15.0 100 06/07/19 03:00 77 30 109/56 (73) 94 06/07/19 03:00 99/54 06/07/19 02:47 111/64 06/07/19 02:30 94 36 117/64 (81) 86 06/07/19 02:00 80 34 109/59 (76) 93 06/07/19 01:30 84 40 103/60 (74) 88 06/07/19 01:00 96/50 06/07/19 01:00 79 32 102/52 (69) 92 06/07/19 00:30 97 39 123/66 (85) 85 06/07/19 00:00 88 06/07/19 00:00 101/53 06/07/19 00:00 98.0 88 34 117/69 (85) 90 06/07/19 00:00 Non-Rebreather 15.0 Non-Rebreather 15.0 06/06/19 23:59 87 30 92 Non-Rebreather 15.0 100 06/06/19 23:59 86 32 93 Non-Rebreather 15.0 100 06/06/19 23:30 94 42 108/57 (74) 87 06/06/19 23:00 107/54 06/06/19 23:00 83 37 93/62 (72) 94 06/06/19 22:30 77/50 06/06/19 22:30 77 37 83/47 (59) 95 Intake and Output 06/06/19 06/07/19 19:00 07:00 Intake Total 255 ml 375.0 ml Output Total 2050 ml 1210 ml Balance -1795 ml -835.0 ml Intake Oral 200 ml IV Total 55 ml 375.0 ml Output Urine Total 50 ml 210 ml Hemodialysis UF 2000 ml 1000 ml Laboratory Tests 06/07/19 04:37: White Blood Count 25.6*H, Red Blood Count 2.54L, Hemoglobin 7.9L, Hematocrit 23.3L, Mean Corpuscular Volume 92, Mean Corpuscular Hemoglobin 31.1H, Mean Corpuscular Hemoglobin Concent 33.9, Red Cell Distribution Width 13.2, Platelet Count 297, Mean Platelet Volume 7.1, Neutrophils (%) (Auto) , Lymphocytes (%) ( Auto) , Monocytes (%) (Auto) , Eosinophils (%) (Auto) , Basophils (%) (Auto) , Differential Total Cells Counted 100, Neutrophils % (Manual) 82H, Lymphocytes % (Manual) 10L, Monocytes % (Manual) 4, Eosinophils % (Manual) 0, Basophils % ( Manual) 0, Metamyelocytes % 1H, Myelocytes % 2H, Band Neutrophils 1, Platelet Estimate Adequate, Platelet Morphology Normal, Polychromasia 1+, Hypochromasia 1 +, Sodium Level 144, Potassium Level 4.6, Chloride Level 104, Carbon Dioxide Level 16L, Anion Gap 24H, Blood Urea Nitrogen 75H, Creatinine 8.2H, Estimat Glomerular Filtration Rate 6.6, Glucose Level 149H, Calcium Level 9.6, Phosphorus Level 8.7H, Total Bilirubin 0.4, Aspartate Amino Transf (AST/SGOT) 42H, Alanine Aminotransferase (ALT/SGPT) 8L, Alkaline Phosphatase 87, Troponin I 0.004, C-Reactive Protein, Quantitative 38.1H, Pro-B-Type Natriuretic Peptide 9119H, Total Protein 9.4H, Albumin 2.7L, Globulin 6.7, Albumin/Globulin Ratio 0.4L 06/07/19 08:02: Arterial Blood pH 7.296L, Arterial Blood Partial Pressure CO2 31.3L, Arterial Blood Partial Pressure O2 96.1, Arterial Blood HCO3 14.9*L, Arterial Blood Oxygen Saturation 96.0, Arterial Blood Base Excess -10.5*L, Kosta Test Positive Height (Feet): 6 Height (Inches): 1.00 Weight (Pounds): 207 Karishma Mulligan MD Jun 07, 2019 22:07
[2019-06-08] VITALS (74 sets, daily range): BP systolic 92–136; BP diastolic 44–80
--- NOTE | 2019-06-08 01:40 | Pulmonology Progress Note ---
Assessment/Plan Assessment/Plan Pulmonary CCM Progress Note HPI: Patient is a 68 year old man, group home resident, admitted c/o shortness of breath, cough, noted to have Covid 19 Pneumonia. Past Medical History: COPD, CKD, Hypertension, Anemia Has new HD catheter, Psychiatry following Received HD today Remains on NRB, worsening infiltrates, ABG noted Hypotension requiring pressors, in ICU Seen on 06/07/2019 Allergies: No Known Allergies Improving Pulmonary Status on HD Physical Exam Vital Signs Noted WDWN, no distress HEENT: NCAT,moist mm Chest: Occasional rhonchi Heart: HS1, HS2, RRR Abdomen: SNTND, no masses Extremities: Well perfused, mild edema EXHIBITION SPECIALIST: No focal signs, no seizures, responsive to commands. Impression: COVID-19 virus infection Pneumonia Volume overload - on HD Cardiomegaly Lymphopenia Elevated AST COPD Chronic Kidney Disease, worsening renal function - now receiving HD Hypertension Worsening anemia Plan: Antibiotics per ID HD Pressors PRN O2 PRN ABG PRN ECONOMIC ADVISER Medications 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 Monitor cultures/viral studies PPX Hemodialysis per Renal Psychiatry following Laboratory Tests Noted: CXR: Hypoventilatory exam, interstitial changes, cardiomegaly, worseing infiltrates Subjective ROS Limited/Unobtainable: No Constitutional: Denies: fever Respiratory: Reports: dry cough, shortness of breath Psychiatric: Reports: other - refuses labs Allergies: Coded Allergies: No Known Allergies (Unverified , 05/28/19) Objective Last 24 Hour Vital Signs Date Time Temp Pulse Resp B/P (MAP) Pulse Ox O2 Delivery O2 Flow Rate FiO2 06/08/19 00:00 Non-Rebreather 15.0 06/08/19 00:00 98.3 78 35 129/66 (87) 98 06/07/19 23:45 66 26 110/56 (74) 100 06/07/19 23:30 68 24 105/63 (77) 100 06/07/19 23:15 66 26 107/58 (74) 100 06/07/19 23:00 66 25 104/56 (72) 100 06/07/19 22:30 68 24 99/57 (71) 100 06/07/19 22:15 68 26 105/54 (71) 100 06/07/19 22:00 80 34 118/60 (79) 97 06/07/19 21:45 78 32 115/68 (84) 99 06/07/19 21:30 66 28 111/59 (76) 100 06/07/19 21:15 67 28 105/62 (76) 100 06/07/19 21:00 76 26 115/66 (82) 100 06/07/19 20:45 65 25 102/56 (71) 100 06/07/19 20:30 65 24 100/56 (71) 100 06/07/19 20:26 107/57 06/07/19 20:15 66 23 107/57 (74) 100 06/07/19 20:00 15.0 06/07/19 20:00 Non-Rebreather 15.0 06/07/19 20:00 98.5 68 23 106/53 (70) 100 06/07/19 19:45 66 27 90/52 (65) 100 06/07/19 19:30 70 25 100/57 (71) 100 06/07/19 19:21 72 29 106/59 (75) 100 06/07/19 19:17 65 27 83/50 (61) 100 06/07/19 19:15 64 28 84/50 (61) 100 06/07/19 19:00 85/51 06/07/19 19:00 66 27 85/51 (62) 100 06/07/19 18:57 Non-Rebreather 15.0 06/07/19 18:45 74 33 111/61 (78) 99 06/07/19 18:30 78 33 126/72 (90) 98 06/07/19 18:00 71 25 123/63 (83) 100 06/07/19 18:00 123/63 06/07/19 17:30 80 31 125/70 (88) 99 06/07/19 17:00 125/64 06/07/19 17:00 73 26 125/64 (84) 100 06/07/19 16:30 69 25 119/64 (82) 100 06/07/19 16:00 71 06/07/19 16:00 98.9 69 22 100/60 (73) 98 06/07/19 16:00 Non-Rebreather 15.0 06/07/19 16:00 100/60 06/07/19 16:00 15.0 06/07/19 15:30 Non-Rebreather 15.0 100 06/07/19 15:30 79 23 118/71 (87) 98 06/07/19 15:30 Non-Rebreather 15.0 100 06/07/19 15:00 71 20 100/72 (81) 100 06/07/19 15:00 100/72 06/07/19 14:30 72 15 101/64 (76) 100 06/07/19 14:00 103/62 06/07/19 14:00 69 15 103/62 (76) 100 06/07/19 13:30 72 21 102/65 (77) 99 06/07/19 13:15 73 24 103/62 (76) 100 06/07/19 13:00 99/54 06/07/19 13:00 74 32 99/54 (69) 96 06/07/19 12:45 72 33 92/62 (72) 97 06/07/19 12:30 81 30 105/52 (69) 94 06/07/19 12:15 73 35 91/61 (71) 93 06/07/19 12:00 98.7 73 33 98/61 (73) 97 06/07/19 12:00 98/61 06/07/19 12:00 15.0 06/07/19 12:00 74 06/07/19 12:00 Non-Rebreather 15.0 06/07/19 11:45 87 44 108/63 (78) 90 06/07/19 11:42 Non-Rebreather 15.0 100 06/07/19 11:42 Non-Rebreather 15.0 100 06/07/19 11:30 76 29 90/60 (70) 100 06/07/19 11:15 76 28 94/53 (67) 100 06/07/19 11:00 67 24 90/61 (71) 100 06/07/19 11:00 90/61 06/07/19 10:30 73 31 100/57 (71) 100 06/07/19 10:00 81 29 109/59 (76) 98 06/07/19 10:00 91/61 06/07/19 10:00 91/61 06/07/19 09:30 81 35 109/63 (78) 98 06/07/19 09:00 77 30 111/50 (70) 100 06/07/19 09:00 84/57 4/27/20 08:30 81 30 109/65 (80) 93 06/07/19 08:00 98.4 80 31 107/58 (74) 98 06/07/19 08:00 Non-Rebreather 15.0 06/07/19 08:00 98/63 06/07/19 08:00 15.0 06/07/19 08:00 75 06/07/19 07:31 75 34 97 Non-Rebreather 15.0 100 06/07/19 07:31 75 34 97 Non-Rebreather 15.0 100 06/07/19 07:30 74 30 95/57 (70) 98 06/07/19 07:27 71 26 100 Non-Rebreather 15.0 100 06/07/19 07:25 73 27 100 Non-Rebreather 15.0 100 06/07/19 07:00 95/57 06/07/19 07:00 70 28 95/57 (70) 100 06/07/19 06:30 77 28 105/59 (74) 100 06/07/19 06:15 74 28 91/60 (70) 100 06/07/19 06:01 73 28 90/55 (67) 100 06/07/19 06:00 96/57 06/07/19 06:00 73 28 89/60 (70) 100 06/07/19 05:59 110/52 06/07/19 05:30 71 23 84/59 (67) 100 06/07/19 05:00 78 26 115/61 (79) 100 06/07/19 05:00 89/60 06/07/19 04:30 77 28 88/56 (67) 100 06/07/19 04:00 15.0 06/07/19 04:00 76 06/07/19 04:00 Non-Rebreather 15.0 Non-Rebreather 15.0 06/07/19 04:00 98.6 74 30 98/51 (67) 100 06/07/19 04:00 99/53 06/07/19 03:30 91 35 104/68 (80) 88 06/07/19 03:22 81 33 94 Non-Rebreather 15.0 100 06/07/19 03:21 82 33 93 Non-Rebreather 15.0 100 06/07/19 03:00 77 30 109/56 (73) 94 06/07/19 03:00 99/54 06/07/19 02:47 111/64 06/07/19 02:30 94 36 117/64 (81) 86 06/07/19 02:00 80 34 109/59 (76) 93 Intake and Output 06/07/19 06/08/19 19:00 07:00 Intake Total 886.11 ml 60 ml Output Total 15 ml 0 ml Balance 871.11 ml 60 ml IV Total 886.11 ml Other 60 ml Output Urine Total 15 ml 0 ml # Bowel Movements 2 General Appearance: no acute distress HEENT: mucous membranes moist Abdomen: soft, non tender Extremities: no edema Skin: no rash Neurologic/Psychiatric: responsive, disoriented Laboratory Tests 06/07/19 04:37: White Blood Count 25.6*H, Red Blood Count 2.54L, Hemoglobin 7.9L, Hematocrit 23.3L, Mean Corpuscular Volume 92, Mean Corpuscular Hemoglobin 31.1H, Mean Corpuscular Hemoglobin Concent 33.9, Red Cell Distribution Width 13.2, Platelet Count 297, Mean Platelet Volume 7.1, Neutrophils (%) (Auto) , Lymphocytes (%) ( Auto) , Monocytes (%) (Auto) , Eosinophils (%) (Auto) , Basophils (%) (Auto) , Differential Total Cells Counted 100, Neutrophils % (Manual) 82H, Lymphocytes % (Manual) 10L, Monocytes % (Manual) 4, Eosinophils % (Manual) 0, Basophils % ( Manual) 0, Metamyelocytes % 1H, Myelocytes % 2H, Band Neutrophils 1, Platelet Estimate Adequate, Platelet Morphology Normal, Polychromasia 1+, Hypochromasia 1 +, Sodium Level 144, Potassium Level 4.6, Chloride Level 104, Carbon Dioxide Level 16L, Anion Gap 24H, Blood Urea Nitrogen 75H, Creatinine 8.2H, Estimat Glomerular Filtration Rate 6.6, Glucose Level 149H, Calcium Level 9.6, Phosphorus Level 8.7H, Total Bilirubin 0.4, Aspartate Amino Transf (AST/SGOT) 42H, Alanine Aminotransferase (ALT/SGPT) 8L, Alkaline Phosphatase 87, Troponin I 0.004, C-Reactive Protein, Quantitative 38.1H, Pro-B-Type Natriuretic Peptide 9119H, Total Protein 9.4H, Albumin 2.7L, Globulin 6.7, Albumin/Globulin Ratio 0.4L 06/07/19 08:02: Arterial Blood pH 7.296L, Arterial Blood Partial Pressure CO2 31.3L, Arterial Blood Partial Pressure O2 96.1, Arterial Blood HCO3 14.9*L, Arterial Blood Oxygen Saturation 96.0, Arterial Blood Base Excess -10.5*L, Kosta Test Positive 06/07/19 19:30: Stool Occult Blood [Pending] Current Medications Medications (Trade) Dose Ordered Sig/Anthony Route PRN Reason Start Time Stop Time Status Last Admin Dose Admin Acetaminophen (Tylenol) 650 mg Q6H PRN ORAL MILD PAIN/Temp >100.5 06/07/19 00:00 07/07/19 00:00 Albumin Human 250 ml @ 0 mls/hr Q0M PRN IV For hypotension 06/06/19 21:15 09/04/19 12:44 Albuterol Sulfate (Proventil MDI) 2 puff Q4HRT INH 06/06/19 23:00 08/30/19 18:59 06/07/19 23:00 Cefepime HCl 1 gm/ Dextrose 55 ml @ 110 mls/hr Q24H IVPB 06/07/19 13:00 06/13/19 12:59 06/07/19 12:56 Chlorhexidine Gluconate (Michelle-Hex 2%) 1 applic DAILY@2000 TOPIC 06/07/19 20:00 09/05/19 19:59 06/07/19 19:51 Divalproex Sodium (Depakote ER) 500 mg BEDTIME ORAL 06/07/19 21:00 07/01/19 20:59 06/07/19 21:32 Docusate Sodium (Colace) 100 mg THREE TIMES A DAY NG 06/07/19 13:00 07/07/19 12:59 06/07/19 18:23 Enoxaparin Sodium (Lovenox) 30 mg DAILY SUBQ 06/07/19 09:00 08/27/19 08:59 06/07/19 09:08 Epoetin Aftab (Epoetin Aftab(ESRD on dialysis)) 10,000 unit FRI-FRI-FRI SUBQ 06/07/19 21:00 08/31/19 20:59 06/07/19 21:32 Hydralazine HCl (Apresoline) 10 mg Q4H PRN IV Blood pressure over 160 systol 06/07/19 10:15 09/05/19 10:14 Norepinephrine Bitartrate 8 mg/ Dextrose 558 ml @ 0 mls/hr Q24H IV 06/07/19 09:00 07/07/19 08:59 06/07/19 20:26 Pantoprazole (Protonix) 40 mg Q12HR IVP 06/07/19 21:00 07/07/19 08:59 06/07/19 21:31 Salmeterol Xinafoate/ Fluticasone (Advair 100/50 Diskus) 1 puffs BID INH 06/07/19 09:00 08/27/19 08:59 06/07/19 18:23 Sevelamer Carbonate (Renvela) 1,600 mg THREE TIMES A DAY NG 06/07/19 13:00 09/05/19 12:59 06/07/19 18:23 Sodium Citrate (Bicitra) 30 ml Q8HR NG 06/07/19 14:00 06/28/19 11:59 06/07/19 21:31 Vancomycin HCl (Vanco rx to dose) 1 ea DAILY PRN MISC Per rx protocol 06/07/19 11:00 07/07/19 10:59 Arturo Mckeon MD Jun 08, 2019 01:40
[2019-06-08] MEDS: Albuterol 90mcg Inhaler 8gm INH SCH ×6 (03:46→22:28)
--- NOTE | 2019-06-08 04:14 | Progress Note ---
DATE: 06/07/2019 HISTORY OF PRESENT ILLNESS: Patient now is in ICU. Patient was seen in person today. I spoke to his nurse ordered Depakote and Haldol for the patient's agitation. Patient is refusing the Depakote as well as other medication. One dose of Haldol was given. Per Dr. Mulligan's request, we will discontinue the psychotropic medications. Patient has not been taking psychotropic medications for the past several days except today. Patient is decompensating. He continues to have episodes of agitation. He is on soft restraints now. MENTAL STATUS EXAMINATION: Waxing-waning consciousness, confused, disoriented. Mood is agitated. Affect is flat. Thought process, there is a paucity of thought content. Thought content, no suicidal or homicidal ideation. Cognition is impaired. Insight and judgment, impaired. ASSESSMENT: 1. Acute encephalopathy. 2. Major depressive disorder. PLAN: 1. Discontinue Depakote. Discontinue Haldol. 2. Continue bilateral soft restraints. Guicho Pimentel M.D. DR: Yogesh JOB#: [id number] CC:
[2019-06-08] MEDS: Sodium Citrate 30ml NG SCH ×3 (05:32→22:27)
[2019-06-08] MEDS: D5W IV SCH ×2 (05:32→16:02)
[2019-06-08] MEDS: NOREPINEPHRINE BITARTRATE IV SCH ×2 (05:32→16:02)
[2019-06-08 06:35] LABS: ALANINE AMINOTRANSFERASE 17 U/L (12-78); ALBUMIN 2.4 G/DL (3.4-5.0); ALBUMIN/GLOBULIN RATIO 0.4 (1.0-2.7); ALKALINE PHOSPHATASE 86 U/L (46-116); ANION GAP 19 mmol/L (5-15); ASPARTATE AMINO TRANSFERASE 30 U/L (15-37); BILIRUBIN,TOTAL 0.3 MG/DL (0.2-1.0); BLOOD UREA NITROGEN 88 mg/dL (7-18); CARBON DIOXIDE 20 MMOL/L (21-32); CHLORIDE 105 MMOL/L (98-107); CREATINE KINASE 135 U/L (26-308); PHOSPHORUS 7.6 MG/DL (2.5-4.9); POTASSIUM 4.5 MMOL/L (3.5-5.1); SODIUM 144 MMOL/L (136-145)
--- NOTE | 2019-06-08 06:57 | Hematology/Onc Progress Note ---
Assessment/Plan Assessment/Plan Assessment and Recs: # Anemia of chronic disease, likely related ot underlying kidney disease --> hgb trend 9-->8-->7.3-->7.9 --> transfuse as needed, hgb goal >7 --> no evidence of hemolysis --> peripheral smear has been reviewed --> epogen started tid # Leukocytosis likely related to suspected COVID-19 virus infection --> on abx and plaquenil --> trend smear as needed --> initially 4-->11-->14.5-->21-->26 --> pulm is aware --> on abx cefepime/vanc # Lymphopenia --> likely related to covid19 # Possible Pneumonia # Cardiomegaly # Transaminitis with Elevated AST # COPD # Chronic Kidney Disease --> per renal hd # Hypertension # Dvt ppx lovenox Appreciate consultation and ernesto Rn Subjective HEENT: Denies: no symptoms, eye pain, blurred vision, tearing, double vision, ear pain, ear discharge, nose pain, nose congestion, throat pain, throat swelling, mouth pain, mouth swelling, other Cardiovascular: Denies: no symptoms, chest pain, edema, irregular heart rate, lightheadedness, palpitations, syncope, other Gastrointestinal/Abdominal: Denies: no symptoms, abdomen distended, abdominal pain, black stools, tarry stools, blood in stool, constipated, diarrhea, difficulty swallowing, nausea, poor appetite, poor fluid intake, rectal bleeding , vomiting, other Genitourinary: Denies: no symptoms, burning, discharge, frequency, flank pain, hematuria, incontinence, pain, urgency, other Neurologic/Psychiatric: Denies: no symptoms, anxiety, depressed, emotional problems, headache, numbness, paresthesia, pre-existing deficit, seizure, tingling, tremors, weakness, other Endocrine: Denies: no symptoms, excessive sweating, flushing, intolerance to cold, intolerance to heat, increased hunger, increased thirst, increased urine, unexplained weight gain, unexplained weight loss, other Allergies: Coded Allergies: No Known Allergies (Unverified , 05/28/19) Subjective 06/01 extremely agitated, not allowing labs draws, no night sweats, cbc ordered 06/02 confused, restraints, on abx and plaquenil, hgb 7.9, nrb 15 L 06/03 is with nonrebreather, but not compliant, remains confused 06/05 no bleeding, labs noted, no major bleeding, otherwise comfortable 06/06 labs reviewed, no bleeding, meds noted, no night sweats, on levo and nonrebreather 06/07 labs noted, no bleeding, meds reviewed, no bleeding, wbc higher Objective Objective Current Medications Medications (Trade) Dose Ordered Sig/Anthony Route PRN Reason Start Time Stop Time Status Last Admin Dose Admin Acetaminophen (Tylenol) 650 mg Q6H PRN ORAL MILD PAIN/Temp >100.5 06/07/19 00:00 07/07/19 00:00 Albumin Human 250 ml @ 0 mls/hr Q0M PRN IV For hypotension 06/06/19 21:15 09/04/19 12:44 Albuterol Sulfate (Proventil MDI) 2 puff Q4HRT INH 06/06/19 23:00 08/30/19 18:59 06/08/19 06:19 Cefepime HCl 1 gm/ Dextrose 55 ml @ 110 mls/hr Q24H IVPB 06/07/19 13:00 06/13/19 12:59 06/07/19 12:56 Chlorhexidine Gluconate (Michelle-Hex 2%) 1 applic DAILY@2000 TOPIC 06/07/19 20:00 09/05/19 19:59 06/07/19 19:51 Divalproex Sodium (Depakote ER) 500 mg BEDTIME ORAL 06/07/19 21:00 07/01/19 20:59 06/07/19 21:32 Docusate Sodium (Colace) 100 mg THREE TIMES A DAY NG 06/07/19 13:00 07/07/19 12:59 06/07/19 18:23 Enoxaparin Sodium (Lovenox) 30 mg DAILY SUBQ 06/07/19 09:00 08/27/19 08:59 06/07/19 09:08 Epoetin Aftab (Epoetin Aftab(ESRD on dialysis)) 10,000 unit FRI-WED-FRI SUBQ 06/07/19 21:00 08/31/19 20:59 06/07/19 21:32 Hydralazine HCl (Apresoline) 10 mg Q4H PRN IV Blood pressure over 160 systol 06/07/19 10:15 09/05/19 10:14 Norepinephrine Bitartrate 8 mg/ Dextrose 558 ml @ 0 mls/hr Q24H IV 06/07/19 09:00 07/07/19 08:59 06/08/19 05:32 Pantoprazole (Protonix) 40 mg Q12HR IVP 06/07/19 21:00 07/07/19 08:59 06/07/19 21:31 Salmeterol Xinafoate/ Fluticasone (Advair 100/50 Diskus) 1 puffs BID INH 06/07/19 09:00 08/27/19 08:59 06/07/19 18:23 Sevelamer Carbonate (Renvela) 1,600 mg THREE TIMES A DAY NG 06/07/19 13:00 09/05/19 12:59 06/07/19 18:23 Sodium Citrate (Bicitra) 30 ml Q8HR NG 06/07/19 14:00 06/28/19 11:59 06/08/19 05:32 Vancomycin HCl (Vanco rx to dose) 1 ea DAILY PRN MISC Per rx protocol 06/07/19 11:00 07/07/19 10:59 Last 24 Hour Vital Signs Date Time Temp Pulse Resp B/P (MAP) Pulse Ox O2 Delivery O2 Flow Rate FiO2 06/08/19 06:00 110/59 06/08/19 06:00 65 23 110/59 (76) 100 06/08/19 05:32 116/57 06/08/19 05:00 65 22 108/57 (74) 100 06/08/19 05:00 117/55 06/08/19 04:30 65 23 115/58 (77) 100 06/08/19 04:00 98.3 66 22 105/61 (76) 100 06/08/19 04:00 108/57 06/08/19 04:00 83 06/08/19 04:00 Non-Rebreather 15.0 06/08/19 04:00 15.0 06/08/19 03:30 84 37 136/74 (94) 95 06/08/19 03:00 131/69 06/08/19 03:00 71 31 118/72 (87) 100 06/08/19 02:30 65 24 99/57 (71) 100 06/08/19 02:15 68 24 102/56 (71) 100 06/08/19 02:00 102/56 06/08/19 02:00 72 30 128/64 (85) 100 06/08/19 01:45 73 27 111/55 (73) 100 06/08/19 01:30 74 27 128/61 (83) 100 06/08/19 01:15 70 24 105/58 (74) 100 06/08/19 01:00 105/58 06/08/19 01:00 67 23 106/59 (75) 100 06/08/19 00:45 68 25 109/59 (76) 100 06/08/19 00:30 67 27 110/53 (72) 100 06/08/19 00:15 72 25 118/67 (84) 99 06/08/19 00:00 118/67 06/08/19 00:00 15.0 06/08/19 00:00 Non-Rebreather 15.0 06/08/19 00:00 65 06/08/19 00:00 98.3 78 35 129/66 (87) 98 06/07/19 23:45 66 26 110/56 (74) 100 06/07/19 23:30 68 24 105/63 (77) 100 06/07/19 23:15 66 26 107/58 (74) 100 06/07/19 23:00 66 25 104/56 (72) 100 06/07/19 23:00 107/58 06/07/19 22:30 68 24 99/57 (71) 100 06/07/19 22:15 68 26 105/54 (71) 100 06/07/19 22:00 105/54 06/07/19 22:00 80 34 118/60 (79) 97 06/07/19 21:45 78 32 115/68 (84) 99 06/07/19 21:30 66 28 111/59 (76) 100 06/07/19 21:15 67 28 105/62 (76) 100 06/07/19 21:00 76 26 115/66 (82) 100 06/07/19 21:00 105/62 06/07/19 20:45 65 25 102/56 (71) 100 06/07/19 20:30 65 24 100/56 (71) 100 06/07/19 20:26 107/57 06/07/19 20:15 66 23 107/57 (74) 100 06/07/19 20:00 15.0 06/07/19 20:00 Non-Rebreather 15.0 06/07/19 20:00 98.5 68 23 106/53 (70) 100 06/07/19 20:00 107/57 06/07/19 20:00 65 06/07/19 19:45 66 27 90/52 (65) 100 06/07/19 19:30 70 25 100/57 (71) 100 06/07/19 19:21 72 29 106/59 (75) 100 06/07/19 19:17 65 27 83/50 (61) 100 06/07/19 19:15 64 28 84/50 (61) 100 06/07/19 19:00 85/51 06/07/19 19:00 66 27 85/51 (62) 100 06/07/19 18:57 Non-Rebreather 15.0 06/07/19 18:45 74 33 111/61 (78) 99 06/07/19 18:30 78 33 126/72 (90) 98 06/07/19 18:00 71 25 123/63 (83) 100 06/07/19 18:00 123/63 06/07/19 17:30 80 31 125/70 (88) 99 06/07/19 17:00 125/64 06/07/19 17:00 73 26 125/64 (84) 100 06/07/19 16:30 69 25 119/64 (82) 100 06/07/19 16:00 71 06/07/19 16:00 98.9 69 22 100/60 (73) 98 06/07/19 16:00 Non-Rebreather 15.0 06/07/19 16:00 100/60 06/07/19 16:00 15.0 06/07/19 15:30 Non-Rebreather 15.0 100 06/07/19 15:30 79 23 118/71 (87) 98 06/07/19 15:30 Non-Rebreather 15.0 100 06/07/19 15:00 71 20 100/72 (81) 100 06/07/19 15:00 100/72 06/07/19 14:30 72 15 101/64 (76) 100 06/07/19 14:00 103/62 06/07/19 14:00 69 15 103/62 (76) 100 06/07/19 13:30 72 21 102/65 (77) 99 06/07/19 13:15 73 24 103/62 (76) 100 06/07/19 13:00 99/54 06/07/19 13:00 74 32 99/54 (69) 96 06/07/19 12:45 72 33 92/62 (72) 97 06/07/19 12:30 81 30 105/52 (69) 94 06/07/19 12:15 73 35 91/61 (71) 93 06/07/19 12:00 98.7 73 33 98/61 (73) 97 06/07/19 12:00 98/61 06/07/19 12:00 15.0 06/07/19 12:00 74 06/07/19 12:00 Non-Rebreather 15.0 06/07/19 11:45 87 44 108/63 (78) 90 06/07/19 11:42 Non-Rebreather 15.0 100 06/07/19 11:42 Non-Rebreather 15.0 100 06/07/19 11:30 76 29 90/60 (70) 100 06/07/19 11:15 76 28 94/53 (67) 100 06/07/19 11:00 67 24 90/61 (71) 100 06/07/19 11:00 90/61 06/07/19 10:30 73 31 100/57 (71) 100 06/07/19 10:00 81 29 109/59 (76) 98 06/07/19 10:00 91/61 06/07/19 10:00 91/61 06/07/19 09:30 81 35 109/63 (78) 98 06/07/19 09:00 77 30 111/50 (70) 100 06/07/19 09:00 84/57 06/07/19 08:30 81 30 109/65 (80) 93 06/07/19 08:00 98.4 80 31 107/58 (74) 98 06/07/19 08:00 Non-Rebreather 15.0 06/07/19 08:00 98/63 06/07/19 08:00 15.0 06/07/19 08:00 75 06/07/19 07:31 75 34 97 Non-Rebreather 15.0 100 06/07/19 07:31 75 34 97 Non-Rebreather 15.0 100 06/07/19 07:30 74 30 95/57 (70) 98 06/07/19 07:27 71 26 100 Non-Rebreather 15.0 100 06/07/19 07:25 73 27 100 Non-Rebreather 15.0 100 06/07/19 07:00 95/57 06/07/19 07:00 70 28 95/57 (70) 100 06/07/19 06:30 77 28 105/59 (74) 100 06/07/19 06:15 74 28 91/60 (70) 100 06/07/19 06:01 73 28 90/55 (67) 100 06/07/19 06:00 96/57 06/07/19 06:00 73 28 89/60 (70) 100 06/07/19 05:59 110/52 06/07/19 05:30 71 23 84/59 (67) 100 06/07/19 05:00 78 26 115/61 (79) 100 06/07/19 05:00 89/60 06/07/19 04:30 77 28 88/56 (67) 100 06/07/19 04:00 15.0 06/07/19 04:00 76 06/07/19 04:00 Non-Rebreather 15.0 Non-Rebreather 15.0 06/07/19 04:00 98.6 74 30 98/51 (67) 100 06/07/19 04:00 99/53 06/07/19 03:30 91 35 104/68 (80) 88 06/07/19 03:22 81 33 94 Non-Rebreather 15.0 100 06/07/19 03:21 82 33 93 Non-Rebreather 15.0 100 06/07/19 03:00 77 30 109/56 (73) 94 06/07/19 03:00 99/54 06/07/19 02:47 111/64 06/07/19 02:30 94 36 117/64 (81) 86 06/07/19 02:00 80 34 109/59 (76) 93 06/07/19 01:30 84 40 103/60 (74) 88 06/07/19 01:00 96/50 06/07/19 01:00 79 32 102/52 (69) 92 06/07/19 00:30 97 39 123/66 (85) 85 06/07/19 00:00 88 06/07/19 00:00 101/53 06/07/19 00:00 98.0 88 34 117/69 (85) 90 06/07/19 00:00 Non-Rebreather 15.0 Non-Rebreather 15.0 06/06/19 23:59 87 30 92 Non-Rebreather 15.0 100 06/06/19 23:59 86 32 93 Non-Rebreather 15.0 100 06/06/19 23:30 94 42 108/57 (74) 87 06/06/19 23:00 107/54 06/06/19 23:00 83 37 93/62 (72) 94 06/06/19 22:30 77/50 06/06/19 22:30 77 37 83/47 (59) 95 06/06/19 22:02 75/48 06/06/19 22:00 82 36 76/48 (57) 94 06/06/19 22:00 75/48 06/06/19 21:30 85 30 99/53 (68) 92 06/06/19 21:15 98.2 85 30 99/53 (68) 88 06/06/19 20:00 98.4 92 26 71/35 (47) 95 06/06/19 20:00 Non-Rebreather 15.0 Non-Rebreather 15.0 06/06/19 20:00 15.0 06/06/19 19:25 90 06/06/19 16:00 15.0 06/06/19 16:00 Non-Rebreather 15.0 06/06/19 15:33 100 06/06/19 14:00 95/60 06/06/19 12:00 15.0 06/06/19 12:00 Non-Rebreather 15.0 06/06/19 12:00 97.7 76 24 95/60 (72) 98 06/06/19 11:53 91 06/06/19 08:51 86 103/75 4/26/20 08:51 86 103/75 06/06/19 08:00 15.0 06/06/19 08:00 97.7 86 23 103/75 (84) 98 06/06/19 08:00 Non-Rebreather 15.0 06/06/19 07:59 86 Intake and Output 06/07/19 06/08/19 19:00 07:00 Intake Total 886.11 ml 764.49 ml Output Total 15 ml 0 ml Balance 871.11 ml 764.49 ml IV Total 886.11 ml 644.49 ml Other 120 ml Output Urine Total 15 ml 0 ml # Bowel Movements 2 Labs Test 06/06/19 05:10 06/06/19 20:10 06/07/19 04:37 06/07/19 08:02 White Blood Count 21.6 K/UL (4.8-10.8) 25.6 K/UL (4.8-10.8) Red Blood Count 2.53 M/UL (4.70-6.10) 2.54 M/UL (4.70-6.10) Hemoglobin 7.9 G/DL (14.2-18.0) 7.9 G/DL (14.2-18.0) Hematocrit 22.9 % (42.0-52.0) 23.3 % (42.0-52.0) Mean Corpuscular Volume 91 FL (80-99) 92 FL (80-99) Mean Corpuscular Hemoglobin 31.4 PG (27.0-31.0) 31.1 PG (27.0-31.0) Mean Corpuscular Hemoglobin Concent 34.6 G/DL (32.0-36.0) 33.9 G/DL (32.0-36.0) Red Cell Distribution Width 13.3 % (11.6-14.8) 13.2 % (11.6-14.8) Platelet Count 268 K/UL (150-450) 297 K/UL (150-450) Mean Platelet Volume 6.5 FL (6.5-10.1) 7.1 FL (6.5-10.1) Neutrophils (%) (Auto) % (45.0-75.0) % (45.0-75.0) Lymphocytes (%) (Auto) % (20.0-45.0) % (20.0-45.0) Monocytes (%) (Auto) % (1.0-10.0) % (1.0-10.0) Eosinophils (%) (Auto) % (0.0-3.0) % (0.0-3.0) Basophils (%) (Auto) % (0.0-2.0) % (0.0-2.0) Differential Total Cells Counted 100 100 Neutrophils % (Manual) 92 % (45-75) 82 % (45-75) Lymphocytes % (Manual) 5 % (20-45) 10 % (20-45) Monocytes % (Manual) 2 % (1-10) 4 % (1-10) Eosinophils % (Manual) 1 % (0-3) 0 % (0-3) Basophils % (Manual) 0 % (0-2) 0 % (0-2) Band Neutrophils 0 % (0-8) 1 % (0-8) Platelet Estimate Adequate Adequate Platelet Morphology Normal Normal Hypochromasia 3+ 1+ Anisocytosis 1+ Sodium Level 151 MMOL/L (136-145) 144 MMOL/L (136-145) Potassium Level 4.2 MMOL/L (3.5-5.1) 4.6 MMOL/L (3.5-5.1) Chloride Level 110 MMOL/L (98-107) 104 MMOL/L (98-107) Carbon Dioxide Level 19 MMOL/L (21-32) 16 MMOL/L (21-32) Anion Gap 22 mmol/L (5-15) 24 mmol/L (5-15) Blood Urea Nitrogen 92 mg/dL (7-18) 75 mg/dL (7-18) Creatinine 10.0 MG/DL (0.55-1.30) 8.2 MG/DL (0.55-1.30) Estimat Glomerular Filtration Rate 5.2 mL/min (>60) 6.6 mL/min (>60) Glucose Level 182 MG/DL (74-106) 149 MG/DL (74-106) Calcium Level 9.0 MG/DL (8.5-10.1) 9.6 MG/DL (8.5-10.1) Phosphorus Level 7.5 MG/DL (2.5-4.9) 8.7 MG/DL (2.5-4.9) Magnesium Level 2.5 MG/DL (1.8-2.4) Total Bilirubin 0.2 MG/DL (0.2-1.0) 0.4 MG/DL (0.2-1.0) Aspartate Amino Transf (AST/SGOT) 36 U/L (15-37) 42 U/L (15-37) Alanine Aminotransferase (ALT/SGPT) 17 U/L (12-78) 8 U/L (12-78) Alkaline Phosphatase 93 U/L (46-116) 87 U/L (46-116) Troponin I 0.012 ng/mL (0.000-0.056) 0.004 ng/mL (0.000-0.056) C-Reactive Protein, Quantitative 40.1 mg/dL (0.00-0.90) 38.1 mg/dL (0.00-0.90) Pro-B-Type Natriuretic Peptide 46645 pg/mL (0-125) 9119 pg/mL (0-125) Total Protein 8.8 G/DL (6.4-8.2) 9.4 G/DL (6.4-8.2) Albumin 2.0 G/DL (3.4-5.0) 2.7 G/DL (3.4-5.0) Globulin 6.8 g/dL 6.7 g/dL Albumin/Globulin Ratio 0.3 (1.0-2.7) 0.4 (1.0-2.7) Arterial Blood pH 7.300 (7.350-7.450) 7.296 (7.350-7.450) Arterial Blood Partial Pressure CO2 30.5 mmHg (35.0-45.0) 31.3 mmHg (35.0-45.0) Arterial Blood Partial Pressure O2 101.0 mmHg (75.0-100.0) 96.1 mmHg (75.0-100.0) Arterial Blood HCO3 14.9 mmol/L (22.0-26.0) 14.9 mmol/L (22.0-26.0) Arterial Blood Oxygen Saturation 96.8 % (95-100) 96.0 % (95-100) Arterial Blood Base Excess -10.3 (-2-2) -10.5 (-2-2) Kosta Test Positive Positive Metamyelocytes % 1 % (0-0) Myelocytes % 2 % (0-0) Polychromasia 1+ Test 06/07/19 19:30 06/08/19 05:16 Height (Feet): 6 Height (Inches): 1.00 Weight (Pounds): 207 Objective Sp02 EP Interpretation: reviewed, normal General: no apparent distress, alert, GCS 15, non-toxic Head: normocephalic, atraumatic Heent: bilateral eye normal inspection, bilateral eye PERRL Respiratory: normal breath sounds, no respiratory distress, NRB+ Cardiovascular: regular rate, rhythm, no edema Gastrointestinal: normal inspection, soft, non-distended Rectal: deferred Musculoskeletal: normal range of motion, non-tender Neurologic: alert, motor strength/tone normal, sensory intact, responsive, speech normal Psychiatric: mood/affect normal, no suicidal/homicidal ideation Skin: Decubitus/Ulcer - See RN skin exam. : jamaal+ Greg Cabral MD Jun 08, 2019 06:57
[2019-06-08 08:22] LABS: GAMMA GLUTAMYL TRANSPEPTIDASE 3 U/L (5-85)
[2019-06-08] MEDS: Renvela 800mg Pkt NG SCH ×3 (09:07→17:34)
[2019-06-08] MEDS: Pantoprazole Inj IVP SCH ×2 (09:08→20:11)
[2019-06-08] MEDS: Enoxaparin 30mg Inj SUBQ SCH (09:08)
[2019-06-08] MEDS: Docusate 100mg/10ml Liq NG SCH ×3 (09:08→17:34)
[2019-06-08] MEDS: Wixela 100/50 Inhaler - 60 dose INH SCH ×2 (10:22→18:30)
--- NOTE | 2019-06-08 10:56 | Infectious Diseases Prog Note ---
Assessment/Plan Assessment/Plan IMPRESSION: 1. COVID-19 pneumonia 2. MRSA carrier. 3. Chronic kidney disease , end-stage renal disease. 4. COPD. 5. Hypertension. 6. Anemia. 7. Hypothyroidism. 8. Hyperlipidemia. 9. Major depression. 10. Leukocytosis 11. Hypotension RECOMMENDATIONS: Continue Cefepime & IV Vancomycin Finished hydroxychloroquine. Will f/u COVID19 test Subjective ROS Limited/Unobtainable: Yes Constitutional: Denies: fever Neurologic: Reports: confusion, other - on restraint Allergies: Coded Allergies: No Known Allergies (Unverified , 05/28/19) Objective Vital Signs Last 24 Hour Vital Signs Date Time Temp Pulse Resp B/P (MAP) Pulse Ox O2 Delivery O2 Flow Rate FiO2 06/08/19 08:00 15.0 06/08/19 07:00 121/62 06/08/19 07:00 75 25 121/62 (81) 100 06/08/19 06:30 66 23 102/60 (74) 100 06/08/19 06:00 110/59 06/08/19 06:00 65 23 110/59 (76) 100 06/08/19 05:32 116/57 06/08/19 05:30 66 20 120/56 (77) 100 06/08/19 05:00 65 22 108/57 (74) 100 06/08/19 05:00 117/55 06/08/19 04:30 65 23 115/58 (77) 100 06/08/19 04:00 98.3 66 22 105/61 (76) 100 06/08/19 04:00 108/57 06/08/19 04:00 83 06/08/19 04:00 Non-Rebreather 15.0 06/08/19 04:00 15.0 06/08/19 03:30 84 37 136/74 (94) 95 06/08/19 03:00 131/69 06/08/19 03:00 71 31 118/72 (87) 100 06/08/19 02:30 65 24 99/57 (71) 100 06/08/19 02:15 68 24 102/56 (71) 100 06/08/19 02:00 102/56 06/08/19 02:00 72 30 128/64 (85) 100 06/08/19 01:45 73 27 111/55 (73) 100 06/08/19 01:30 74 27 128/61 (83) 100 06/08/19 01:15 70 24 105/58 (74) 100 06/08/19 01:00 105/58 06/08/19 01:00 67 23 106/59 (75) 100 06/08/19 00:45 68 25 109/59 (76) 100 06/08/19 00:30 67 27 110/53 (72) 100 06/08/19 00:15 72 25 118/67 (84) 99 06/08/19 00:00 118/67 06/08/19 00:00 15.0 06/08/19 00:00 Non-Rebreather 15.0 06/08/19 00:00 65 06/08/19 00:00 98.3 78 35 129/66 (87) 98 06/07/19 23:45 66 26 110/56 (74) 100 06/07/19 23:30 68 24 105/63 (77) 100 06/07/19 23:15 66 26 107/58 (74) 100 06/07/19 23:00 66 25 104/56 (72) 100 06/07/19 23:00 107/58 06/07/19 22:30 68 24 99/57 (71) 100 06/07/19 22:15 68 26 105/54 (71) 100 06/07/19 22:00 105/54 06/07/19 22:00 80 34 118/60 (79) 97 06/07/19 21:45 78 32 115/68 (84) 99 06/07/19 21:30 66 28 111/59 (76) 100 06/07/19 21:15 67 28 105/62 (76) 100 06/07/19 21:00 76 26 115/66 (82) 100 06/07/19 21:00 105/62 06/07/19 20:45 65 25 102/56 (71) 100 06/07/19 20:30 65 24 100/56 (71) 100 20 20:26 107/57 06/07/19 20:15 66 23 107/57 (74) 100 06/07/19 20:00 15.0 06/07/19 20:00 Non-Rebreather 15.0 06/07/19 20:00 98.5 68 23 106/53 (70) 100 06/07/19 20:00 107/57 06/07/19 20:00 65 06/07/19 19:45 66 27 90/52 (65) 100 06/07/19 19:30 70 25 100/57 (71) 100 06/07/19 19:21 72 29 106/59 (75) 100 06/07/19 19:17 65 27 83/50 (61) 100 06/07/19 19:15 64 28 84/50 (61) 100 06/07/19 19:00 85/51 06/07/19 19:00 66 27 85/51 (62) 100 06/07/19 18:57 Non-Rebreather 15.0 06/07/19 18:45 74 33 111/61 (78) 99 06/07/19 18:30 78 33 126/72 (90) 98 06/07/19 18:00 71 25 123/63 (83) 100 06/07/19 18:00 123/63 06/07/19 17:30 80 31 125/70 (88) 99 06/07/19 17:00 125/64 06/07/19 17:00 73 26 125/64 (84) 100 06/07/19 16:30 69 25 119/64 (82) 100 06/07/19 16:00 71 06/07/19 16:00 98.9 69 22 100/60 (73) 98 06/07/19 16:00 Non-Rebreather 15.0 06/07/19 16:00 100/60 06/07/19 16:00 15.0 06/07/19 15:30 Non-Rebreather 15.0 100 06/07/19 15:30 79 23 118/71 (87) 98 06/07/19 15:30 Non-Rebreather 15.0 100 06/07/19 15:00 71 20 100/72 (81) 100 06/07/19 15:00 100/72 06/07/19 14:30 72 15 101/64 (76) 100 06/07/19 14:00 103/62 06/07/19 14:00 69 15 103/62 (76) 100 06/07/19 13:30 72 21 102/65 (77) 99 06/07/19 13:15 73 24 103/62 (76) 100 06/07/19 13:00 99/54 06/07/19 13:00 74 32 99/54 (69) 96 06/07/19 12:45 72 33 92/62 (72) 97 06/07/19 12:30 81 30 105/52 (69) 94 06/07/19 12:15 73 35 91/61 (71) 93 06/07/19 12:00 98.7 73 33 98/61 (73) 97 06/07/19 12:00 98/61 06/07/19 12:00 15.0 06/07/19 12:00 74 06/07/19 12:00 Non-Rebreather 15.0 06/07/19 11:45 87 44 108/63 (78) 90 06/07/19 11:42 Non-Rebreather 15.0 100 06/07/19 11:42 Non-Rebreather 15.0 100 06/07/19 11:30 76 29 90/60 (70) 100 06/07/19 11:15 76 28 94/53 (67) 100 06/07/19 11:00 67 24 90/61 (71) 100 06/07/19 11:00 90/61 Height (Feet): 6 Height (Inches): 1.00 Weight (Pounds): 207 HEENT: mucous membranes moist Respiratory/Chest: other - oxygen by rebreathing mask Cardiovascular: normal rate, other - HD line Abdomen: soft, non tender, other - NG tube Extremities: no edema, other - 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 Neurologic/Psychiatric: other - mostly sleeping Laboratory Tests Test 06/07/19 19:30 06/08/19 05:16 Stool Occult Blood Pending Sodium Level 144 MMOL/L (136-145) Potassium Level 4.5 MMOL/L (3.5-5.1) Chloride Level 105 MMOL/L (98-107) Carbon Dioxide Level 20 MMOL/L (21-32) L Anion Gap 19 mmol/L (5-15) H Blood Urea Nitrogen 88 mg/dL (7-18) H Creatinine 10.0 MG/DL (0.55-1.30) H Estimat Glomerular Filtration Rate 5.2 mL/min (>60) Glucose Level 221 MG/DL (74-106) H Lactic Acid Level 1.40 mmol/L (0.4-2.0) Uric Acid 10.6 MG/DL (2.6-7.2) H Calcium Level 9.0 MG/DL (8.5-10.1) Phosphorus Level 7.6 MG/DL (2.5-4.9) H Magnesium Level 2.6 MG/DL (1.8-2.4) H Total Bilirubin 0.3 MG/DL (0.2-1.0) Gamma Glutamyl Transpeptidase 3 U/L (5-85) L Aspartate Amino Transf (AST/SGOT) 30 U/L (15-37) Alanine Aminotransferase (ALT/SGPT) 17 U/L (12-78) Alkaline Phosphatase 86 U/L (46-116) Total Creatine Kinase 135 U/L (26-308) Troponin I 0.000 ng/mL (0.000-0.056) C-Reactive Protein, Quantitative 32.4 mg/dL (0.00-0.90) H Total Protein 8.9 G/DL (6.4-8.2) H Albumin 2.4 G/DL (3.4-5.0) L Globulin 6.5 g/dL Albumin/Globulin Ratio 0.4 (1.0-2.7) L Current Medications Medications (Trade) Dose Ordered Sig/Anthony Route PRN Reason Start Time Stop Time Status Last Admin Dose Admin Acetaminophen (Tylenol) 650 mg Q6H PRN ORAL MILD PAIN/Temp >100.5 06/07/19 00:00 07/07/19 00:00 Albumin Human 250 ml @ 0 mls/hr Q0M PRN IV For hypotension 06/06/19 21:15 09/04/19 12:44 Albuterol Sulfate (Proventil MDI) 2 puff Q4HRT INH 06/06/19 23:00 08/30/19 18:59 06/08/19 10:23 Allopurinol (allopurinoL) 300 mg DAILY NG 06/08/19 09:30 07/08/19 09:29 06/08/19 10:00 Cefepime HCl 1 gm/ Dextrose 55 ml @ 110 mls/hr Q24H IVPB 06/07/19 13:00 06/13/19 12:59 06/07/19 12:56 Chlorhexidine Gluconate (Michelle-Hex 2%) 1 applic DAILY@2000 TOPIC 06/07/19 20:00 09/05/19 19:59 06/07/19 19:51 Divalproex Sodium (Depakote ER) 500 mg BEDTIME ORAL 06/07/19 21:00 07/01/19 20:59 06/07/19 21:32 Docusate Sodium (Colace) 100 mg THREE TIMES A DAY NG 06/07/19 13:00 07/07/19 12:59 06/08/19 09:08 Enoxaparin Sodium (Lovenox) 30 mg DAILY SUBQ 06/07/19 09:00 08/27/19 08:59 06/08/19 09:08 Epoetin Aftab (Epoetin Aftab(ESRD on dialysis)) 10,000 unit FRI- SUBQ 06/07/19 21:00 08/31/19 20:59 06/07/19 21:32 Hydralazine HCl (Apresoline) 10 mg Q4H PRN IV Blood pressure over 160 systol 06/07/19 10:15 09/05/19 10:14 Norepinephrine Bitartrate 8 mg/ Dextrose 558 ml @ 0 mls/hr Q24H IV 06/07/19 09:00 07/07/19 08:59 06/08/19 05:32 Pantoprazole (Protonix) 40 mg Q12HR IVP 06/07/19 21:00 07/07/19 08:59 06/08/19 09:08 Salmeterol Xinafoate/ Fluticasone (Advair 100/50 Diskus) 1 puffs BID INH 06/07/19 09:00 08/27/19 08:59 06/08/19 10:22 Sevelamer Carbonate (Renvela) 1,600 mg THREE TIMES A DAY NG 06/07/19 13:00 09/05/19 12:59 06/08/19 09:07 Sodium Citrate (Bicitra) 30 ml Q8HR NG 06/07/19 14:00 06/28/19 11:59 06/08/19 05:32 Vancomycin HCl (Vanco rx to dose) 1 ea DAILY PRN MISC Per rx protocol 06/07/19 11:00 07/07/19 10:59 Ted Leyva MD Jun 08, 2019 10:56
--- NOTE | 2019-06-08 12:09 | Cardiac Electrophysiology PN ---
Assessment/Plan Assessment/Plan 1. Elevated troponin. Troponin on May 27 and May 30 were negative; however, on June 01, it was elevated at 0.074. Repeat 0.05. The patient does not have any chest pain. Due to renal failure. Treat medically with aspirin EKG showd QT 493 on Plaquenil as well as azithromycin. Plaquenil DCed. Echo still pending 2. Septic shock. On Levophed 10 Mcg. 3. End-stage renal disease, on hemodialysis.On dialysis per Dr. Cole. 4. COVID-19 positive pneumonia and lymphopenia. Fu by Dr. Ted Leyva and Dr. Mckeon. 5. MRSA carrier. 6. COPD. 7. Anemia. 8. Depression. 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 Mast put in a new LFV Kamlesh in. Still in Covid isolation. On 10 Mc Levophed and new Abx regimen.In SR Objective Last 24 Hour Vital Signs Date Time Temp Pulse Resp B/P (MAP) Pulse Ox O2 Delivery O2 Flow Rate FiO2 06/08/19 08:00 15.0 06/08/19 07:00 121/62 06/08/19 07:00 75 25 121/62 (81) 100 06/08/19 06:30 66 23 102/60 (74) 100 06/08/19 06:00 110/59 06/08/19 06:00 65 23 110/59 (76) 100 06/08/19 05:32 116/57 06/08/19 05:30 66 20 120/56 (77) 100 06/08/19 05:00 65 22 108/57 (74) 100 06/08/19 05:00 117/55 06/08/19 04:30 65 23 115/58 (77) 100 06/08/19 04:00 98.3 66 22 105/61 (76) 100 06/08/19 04:00 108/57 06/08/19 04:00 83 06/08/19 04:00 Non-Rebreather 15.0 06/08/19 04:00 15.0 06/08/19 03:30 84 37 136/74 (94) 95 06/08/19 03:00 131/69 06/08/19 03:00 71 31 118/72 (87) 100 06/08/19 02:30 65 24 99/57 (71) 100 06/08/19 02:15 68 24 102/56 (71) 100 06/08/19 02:00 102/56 06/08/19 02:00 72 30 128/64 (85) 100 06/08/19 01:45 73 27 111/55 (73) 100 06/08/19 01:30 74 27 128/61 (83) 100 06/08/19 01:15 70 24 105/58 (74) 100 06/08/19 01:00 105/58 06/08/19 01:00 67 23 106/59 (75) 100 06/08/19 00:45 68 25 109/59 (76) 100 06/08/19 00:30 67 27 110/53 (72) 100 06/08/19 00:15 72 25 118/67 (84) 99 06/08/19 00:00 118/67 06/08/19 00:00 15.0 06/08/19 00:00 Non-Rebreather 15.0 06/08/19 00:00 65 06/08/19 00:00 98.3 78 35 129/66 (87) 98 06/07/19 23:45 66 26 110/56 (74) 100 06/07/19 23:30 68 24 105/63 (77) 100 06/07/19 23:15 66 26 107/58 (74) 100 06/07/19 23:00 66 25 104/56 (72) 100 06/07/19 23:00 107/58 06/07/19 22:30 68 24 99/57 (71) 100 06/07/19 22:15 68 26 105/54 (71) 100 06/07/19 22:00 105/54 06/07/19 22:00 80 34 118/60 (79) 97 06/07/19 21:45 78 32 115/68 (84) 99 06/07/19 21:30 66 28 111/59 (76) 100 06/07/19 21:15 67 28 105/62 (76) 100 06/07/19 21:00 76 26 115/66 (82) 100 06/07/19 21:00 105/62 06/07/19 20:45 65 25 102/56 (71) 100 06/07/19 20:30 65 24 100/56 (71) 100 06/07/19 20:26 107/57 06/07/19 20:15 66 23 107/57 (74) 100 06/07/19 20:00 15.0 06/07/19 20:00 Non-Rebreather 15.0 06/07/19 20:00 98.5 68 23 106/53 (70) 100 06/07/19 20:00 107/57 06/07/19 20:00 65 06/07/19 19:45 66 27 90/52 (65) 100 06/07/19 19:30 70 25 100/57 (71) 100 06/07/19 19:21 72 29 106/59 (75) 100 06/07/19 19:17 65 27 83/50 (61) 100 06/07/19 19:15 64 28 84/50 (61) 100 06/07/19 19:00 85/51 06/07/19 19:00 66 27 85/51 (62) 100 06/07/19 18:57 Non-Rebreather 15.0 06/07/19 18:45 74 33 111/61 (78) 99 06/07/19 18:30 78 33 126/72 (90) 98 06/07/19 18:00 71 25 123/63 (83) 100 06/07/19 18:00 123/63 06/07/19 17:30 80 31 125/70 (88) 99 06/07/19 17:00 125/64 06/07/19 17:00 73 26 125/64 (84) 100 06/07/19 16:30 69 25 119/64 (82) 100 06/07/19 16:00 71 06/07/19 16:00 98.9 69 22 100/60 (73) 98 06/07/19 16:00 Non-Rebreather 15.0 06/07/19 16:00 100/60 06/07/19 16:00 15.0 06/07/19 15:30 Non-Rebreather 15.0 100 06/07/19 15:30 79 23 118/71 (87) 98 06/07/19 15:30 Non-Rebreather 15.0 100 06/07/19 15:00 71 20 100/72 (81) 100 06/07/19 15:00 100/72 06/07/19 14:30 72 15 101/64 (76) 100 06/07/19 14:00 103/62 06/07/19 14:00 69 15 103/62 (76) 100 06/07/19 13:30 72 21 102/65 (77) 99 06/07/19 13:15 73 24 103/62 (76) 100 06/07/19 13:00 99/54 06/07/19 13:00 74 32 99/54 (69) 96 06/07/19 12:45 72 33 92/62 (72) 97 06/07/19 12:30 81 30 105/52 (69) 94 06/07/19 12:15 73 35 91/61 (71) 93 Intake and Output 06/07/19 06/08/19 19:00 07:00 Intake Total 886.11 ml 814.71 ml Output Total 15 ml 0 ml Balance 871.11 ml 814.71 ml IV Total 886.11 ml 694.71 ml Other 120 ml Output Urine Total 15 ml 0 ml # Bowel Movements 2 Laboratory Tests Test 06/07/19 19:30 06/08/19 05:16 Stool Occult Blood Pending Sodium Level 144 MMOL/L (136-145) Potassium Level 4.5 MMOL/L (3.5-5.1) Chloride Level 105 MMOL/L (98-107) Carbon Dioxide Level 20 MMOL/L (21-32) L Anion Gap 19 mmol/L (5-15) H Blood Urea Nitrogen 88 mg/dL (7-18) H Creatinine 10.0 MG/DL (0.55-1.30) H Estimat Glomerular Filtration Rate 5.2 mL/min (>60) Glucose Level 221 MG/DL (74-106) H Lactic Acid Level 1.40 mmol/L (0.4-2.0) Uric Acid 10.6 MG/DL (2.6-7.2) H Calcium Level 9.0 MG/DL (8.5-10.1) Phosphorus Level 7.6 MG/DL (2.5-4.9) H Magnesium Level 2.6 MG/DL (1.8-2.4) H Total Bilirubin 0.3 MG/DL (0.2-1.0) Gamma Glutamyl Transpeptidase 3 U/L (5-85) L Aspartate Amino Transf (AST/SGOT) 30 U/L (15-37) Alanine Aminotransferase (ALT/SGPT) 17 U/L (12-78) Alkaline Phosphatase 86 U/L (46-116) Total Creatine Kinase 135 U/L (26-308) Troponin I 0.000 ng/mL (0.000-0.056) C-Reactive Protein, Quantitative 32.4 mg/dL (0.00-0.90) H Total Protein 8.9 G/DL (6.4-8.2) H Albumin 2.4 G/DL (3.4-5.0) L Globulin 6.5 g/dL Albumin/Globulin Ratio 0.4 (1.0-2.7) L Objective HEAD AND NECK: No JVD. LUNGS: Decreased breath sounds. CARDIOVASCULAR: Shows regular S1 and S2. Tachycardic. ABDOMEN: Soft. EXTREMITIES: No pitting edema. New Left FV Gio Engle MD Jun 08, 2019 12:09
[2019-06-08] MEDS: Cefepime HCl 1 GM in D5W 55 ML IVPB SCH (13:41)
--- NOTE | 2019-06-08 14:32 | Surgery Progress Note ---
Surgery Progress Note Subjective Procedure Performed left femoral temporary HD catheter placement Additional Comments on levo ill appearing no n/v/f/c labs noted Objective Last 24 Hour Vital Signs Date Time Temp Pulse Resp B/P (MAP) Pulse Ox O2 Delivery O2 Flow Rate FiO2 06/08/19 12:15 75 24 126/59 (81) 100 06/08/19 12:00 Non-Rebreather 15.0 06/08/19 12:00 98.5 68 23 108/66 (80) 100 06/08/19 12:00 15.0 06/08/19 11:45 78 27 123/71 (88) 100 06/08/19 11:30 76 23 123/64 (83) 100 06/08/19 11:15 65 22 100/60 (73) 100 06/08/19 11:00 80 30 119/61 (80) 100 06/08/19 10:45 67 24 109/63 (78) 100 06/08/19 10:30 72 21 106/61 (76) 100 06/08/19 10:15 67 23 132/65 (87) 100 06/08/19 10:00 71 18 105/68 (80) 100 06/08/19 09:45 68 23 129/68 (88) 100 06/08/19 09:30 66 23 107/63 (78) 100 06/08/19 09:15 65 23 109/60 (76) 100 06/08/19 09:00 66 24 113/55 (74) 100 06/08/19 08:45 67 23 112/57 (75) 100 06/08/19 08:30 66 23 107/60 (76) 100 06/08/19 08:15 77 29 125/69 (87) 100 06/08/19 08:00 15.0 06/08/19 08:00 98.6 66 24 109/53 (71) 100 06/08/19 08:00 Non-Rebreather 15.0 06/08/19 07:45 67 23 101/58 (72) 100 06/08/19 07:30 69 22 110/55 (73) 100 06/08/19 07:00 121/62 06/08/19 07:00 75 25 121/62 (81) 100 06/08/19 06:30 66 23 102/60 (74) 100 06/08/19 06:00 110/59 06/08/19 06:00 65 23 110/59 (76) 100 06/08/19 05:32 116/57 06/08/19 05:30 66 20 120/56 (77) 100 06/08/19 05:00 65 22 108/57 (74) 100 06/08/19 05:00 117/55 06/08/19 04:30 65 23 115/58 (77) 100 06/08/19 04:00 98.3 66 22 105/61 (76) 100 06/08/19 04:00 108/57 06/08/19 04:00 83 06/08/19 04:00 Non-Rebreather 15.0 06/08/19 04:00 15.0 06/08/19 03:30 84 37 136/74 (94) 95 06/08/19 03:00 131/69 06/08/19 03:00 71 31 118/72 (87) 100 06/08/19 02:30 65 24 99/57 (71) 100 06/08/19 02:15 68 24 102/56 (71) 100 06/08/19 02:00 102/56 06/08/19 02:00 72 30 128/64 (85) 100 06/08/19 01:45 73 27 111/55 (73) 100 06/08/19 01:30 74 27 128/61 (83) 100 06/08/19 01:15 70 24 105/58 (74) 100 06/08/19 01:00 105/58 06/08/19 01:00 67 23 106/59 (75) 100 06/08/19 00:45 68 25 109/59 (76) 100 06/08/19 00:30 67 27 110/53 (72) 100 06/08/19 00:15 72 25 118/67 (84) 99 06/08/19 00:00 118/67 06/08/19 00:00 15.0 06/08/19 00:00 Non-Rebreather 15.0 06/08/19 00:00 65 06/08/19 00:00 98.3 78 35 129/66 (87) 98 06/07/19 23:45 66 26 110/56 (74) 100 06/07/19 23:30 68 24 105/63 (77) 100 06/07/19 23:15 66 26 107/58 (74) 100 06/07/19 23:00 66 25 104/56 (72) 100 06/07/19 23:00 107/58 06/07/19 22:30 68 24 99/57 (71) 100 06/07/19 22:15 68 26 105/54 (71) 100 06/07/19 22:00 105/54 06/07/19 22:00 80 34 118/60 (79) 97 06/07/19 21:45 78 32 115/68 (84) 99 06/07/19 21:30 66 28 111/59 (76) 100 06/07/19 21:15 67 28 105/62 (76) 100 06/07/19 21:00 76 26 115/66 (82) 100 06/07/19 21:00 105/62 06/07/19 20:45 65 25 102/56 (71) 100 06/07/19 20:30 65 24 100/56 (71) 100 06/07/19 20:26 107/57 06/07/19 20:15 66 23 107/57 (74) 100 06/07/19 20:00 15.0 06/07/19 20:00 Non-Rebreather 15.0 06/07/19 20:00 98.5 68 23 106/53 (70) 100 06/07/19 20:00 107/57 06/07/19 20:00 65 06/07/19 19:45 66 27 90/52 (65) 100 06/07/19 19:30 70 25 100/57 (71) 100 06/07/19 19:21 72 29 106/59 (75) 100 06/07/19 19:17 65 27 83/50 (61) 100 06/07/19 19:15 64 28 84/50 (61) 100 06/07/19 19:00 85/51 06/07/19 19:00 66 27 85/51 (62) 100 06/07/19 18:57 Non-Rebreather 15.0 06/07/19 18:45 74 33 111/61 (78) 99 06/07/19 18:30 78 33 126/72 (90) 98 06/07/19 18:00 71 25 123/63 (83) 100 06/07/19 18:00 123/63 06/07/19 17:30 80 31 125/70 (88) 99 06/07/19 17:00 125/64 06/07/19 17:00 73 26 125/64 (84) 100 06/07/19 16:30 69 25 119/64 (82) 100 06/07/19 16:00 71 06/07/19 16:00 98.9 69 22 100/60 (73) 98 06/07/19 16:00 Non-Rebreather 15.0 06/07/19 16:00 100/60 06/07/19 16:00 15.0 06/07/19 15:30 Non-Rebreather 15.0 100 06/07/19 15:30 79 23 118/71 (87) 98 06/07/19 15:30 Non-Rebreather 15.0 100 06/07/19 15:00 71 20 100/72 (81) 100 06/07/19 15:00 100/72 I&O Intake and Output 06/07/19 06/08/19 19:00 07:00 Intake Total 886.11 ml 814.71 ml Output Total 15 ml 0 ml Balance 871.11 ml 814.71 ml IV Total 886.11 ml 694.71 ml Other 120 ml Output Urine Total 15 ml 0 ml # Bowel Movements 2 Dressing: other Wound: other Drains: other Cardiovascular: RSR Respiratory: decreased breath sounds Abdomen: non-tender, present bowel sounds Extremities: no cyanosis Laboratory Tests Test 06/07/19 19:30 06/08/19 05:16 Stool Occult Blood Negative (NEGATIVE) Sodium Level 144 MMOL/L (136-145) Potassium Level 4.5 MMOL/L (3.5-5.1) Chloride Level 105 MMOL/L (98-107) Carbon Dioxide Level 20 MMOL/L (21-32) L Anion Gap 19 mmol/L (5-15) H Blood Urea Nitrogen 88 mg/dL (7-18) H Creatinine 10.0 MG/DL (0.55-1.30) H Estimat Glomerular Filtration Rate 5.2 mL/min (>60) Glucose Level 221 MG/DL (74-106) H Lactic Acid Level 1.40 mmol/L (0.4-2.0) Uric Acid 10.6 MG/DL (2.6-7.2) H Calcium Level 9.0 MG/DL (8.5-10.1) Phosphorus Level 7.6 MG/DL (2.5-4.9) H Magnesium Level 2.6 MG/DL (1.8-2.4) H Total Bilirubin 0.3 MG/DL (0.2-1.0) Gamma Glutamyl Transpeptidase 3 U/L (5-85) L Aspartate Amino Transf (AST/SGOT) 30 U/L (15-37) Alanine Aminotransferase (ALT/SGPT) 17 U/L (12-78) Alkaline Phosphatase 86 U/L (46-116) Total Creatine Kinase 135 U/L (26-308) Troponin I 0.000 ng/mL (0.000-0.056) C-Reactive Protein, Quantitative 32.4 mg/dL (0.00-0.90) H Total Protein 8.9 G/DL (6.4-8.2) H Albumin 2.4 G/DL (3.4-5.0) L Globulin 6.5 g/dL Albumin/Globulin Ratio 0.4 (1.0-2.7) L Plan Problems: (1) Suspected COVID-19 virus infection (2) HTN (hypertension) (3) CASSANDRA (acute kidney injury) Assessment & Plan: Needs urgent HD needs access patient okay and consented see note will follow with recs new line placed discussed with team and nephrology HD line functional when checked has TPA now please use appropriately (4) Anemia in chronic kidney disease (CKD) (5) Anemia (6) Renal failure (7) Suspected COVID-19 virus infection (8) COVID-19 Assessment & Plan: COVID + c diff negative febrile leukocytosis renal insufficiency see above cont resp care Rx as per Yaniv Clarke Jun 08, 2019 14:32
--- NOTE | 2019-06-08 14:44 | Nephrology Progress Note ---
Assessment/Plan Problem List: (1) CASSANDRA (acute kidney injury) (2) Anemia in chronic kidney disease (CKD) (3) HTN (hypertension) (4) COVID-19 Assessment Acute renal failure most likely superimposed on chronic kidney disease Suspected COVID-19 virus infection Possible Pneumonia, lymphopenia, elevated AST Cardiomegaly, possible CHF COPD Hypertension Anemia, most likely related to chronic kidney disease Plan Positive for COVID 19 Patient received dialysis last evening June 05, next dialysis June 07 Patient is doing poorly, septic, white blood cells are rising, Hypotension somewhat improved We will keep n.p.o. , NG tube for medications, and change medication to IV as needed Patient remains full code Monitor vancomycin level Previously: Patient pulled out his femoral catheter yesterday June 03 which was reinserted by Dr. Mast Patient scheduled for dialysis again June 04, which again was not done due to dialysis nurse citing catheter malfunction Meanwhile continue management per ID, pulmonary , and psych. Meanwhile white blood cell count is rising. Patient blood pressure borderline low. Will check ABG Previously May 31 : I believe patient need dialysis treatment He however needs to competency assessment if can make decisions or not I will communicate with Dr. Mulligan Previously: Per pulmonary and ID advice Adjust blood pressure medication Renal diet Anemia work-up 2D echocardiogram refused Kidney ultrasound refused Jules catheter Urine studies Per orders Subjective ROS Limited/Unobtainable: No Constitutional: Reports: malaise, weakness Objective Objective Last 24 Hour Vital Signs Date Time Temp Pulse Resp B/P (MAP) Pulse Ox O2 Delivery O2 Flow Rate FiO2 06/08/19 14:30 97 46 104/49 (67) 87 06/08/19 14:00 68 23 118/60 (79) 100 06/08/19 13:30 74 22 116/62 (80) 100 06/08/19 13:00 69 23 113/59 (77) 100 06/08/19 12:30 80 28 133/80 (97) 100 06/08/19 12:15 75 24 126/59 (81) 100 06/08/19 12:00 Non-Rebreather 15.0 06/08/19 12:00 98.5 68 23 108/66 (80) 100 06/08/19 12:00 15.0 06/08/19 11:45 78 27 123/71 (88) 100 4/28/20 11:30 76 23 123/64 (83) 100 06/08/19 11:15 65 22 100/60 (73) 100 06/08/19 11:00 80 30 119/61 (80) 100 06/08/19 10:45 67 24 109/63 (78) 100 06/08/19 10:30 72 21 106/61 (76) 100 06/08/19 10:15 67 23 132/65 (87) 100 06/08/19 10:00 71 18 105/68 (80) 100 06/08/19 09:45 68 23 129/68 (88) 100 06/08/19 09:30 66 23 107/63 (78) 100 06/08/19 09:15 65 23 109/60 (76) 100 06/08/19 09:00 66 24 113/55 (74) 100 06/08/19 08:45 67 23 112/57 (75) 100 06/08/19 08:30 66 23 107/60 (76) 100 06/08/19 08:15 77 29 125/69 (87) 100 06/08/19 08:00 15.0 06/08/19 08:00 98.6 66 24 109/53 (71) 100 06/08/19 08:00 Non-Rebreather 15.0 06/08/19 07:45 67 23 101/58 (72) 100 06/08/19 07:30 69 22 110/55 (73) 100 06/08/19 07:00 121/62 06/08/19 07:00 75 25 121/62 (81) 100 06/08/19 06:30 66 23 102/60 (74) 100 06/08/19 06:00 110/59 06/08/19 06:00 65 23 110/59 (76) 100 06/08/19 05:32 116/57 06/08/19 05:30 66 20 120/56 (77) 100 06/08/19 05:00 65 22 108/57 (74) 100 06/08/19 05:00 117/55 06/08/19 04:30 65 23 115/58 (77) 100 06/08/19 04:00 98.3 66 22 105/61 (76) 100 06/08/19 04:00 108/57 06/08/19 04:00 83 06/08/19 04:00 Non-Rebreather 15.0 06/08/19 04:00 15.0 06/08/19 03:30 84 37 136/74 (94) 95 06/08/19 03:00 131/69 06/08/19 03:00 71 31 118/72 (87) 100 06/08/19 02:30 65 24 99/57 (71) 100 06/08/19 02:15 68 24 102/56 (71) 100 06/08/19 02:00 102/56 06/08/19 02:00 72 30 128/64 (85) 100 06/08/19 01:45 73 27 111/55 (73) 100 06/08/19 01:30 74 27 128/61 (83) 100 06/08/19 01:15 70 24 105/58 (74) 100 06/08/19 01:00 105/58 06/08/19 01:00 67 23 106/59 (75) 100 06/08/19 00:45 68 25 109/59 (76) 100 06/08/19 00:30 67 27 110/53 (72) 100 06/08/19 00:15 72 25 118/67 (84) 99 06/08/19 00:00 118/67 06/08/19 00:00 15.0 06/08/19 00:00 Non-Rebreather 15.0 06/08/19 00:00 65 06/08/19 00:00 98.3 78 35 129/66 (87) 98 06/07/19 23:45 66 26 110/56 (74) 100 06/07/19 23:30 68 24 105/63 (77) 100 06/07/19 23:15 66 26 107/58 (74) 100 06/07/19 23:00 66 25 104/56 (72) 100 06/07/19 23:00 107/58 06/07/19 22:30 68 24 99/57 (71) 100 06/07/19 22:15 68 26 105/54 (71) 100 06/07/19 22:00 105/54 06/07/19 22:00 80 34 118/60 (79) 97 06/07/19 21:45 78 32 115/68 (84) 99 06/07/19 21:30 66 28 111/59 (76) 100 06/07/19 21:15 67 28 105/62 (76) 100 06/07/19 21:00 76 26 115/66 (82) 100 06/07/19 21:00 105/62 06/07/19 20:45 65 25 102/56 (71) 100 06/07/19 20:30 65 24 100/56 (71) 100 06/07/19 20:26 107/57 06/07/19 20:15 66 23 107/57 (74) 100 06/07/19 20:00 15.0 06/07/19 20:00 Non-Rebreather 15.0 06/07/19 20:00 98.5 68 23 106/53 (70) 100 06/07/19 20:00 107/57 06/07/19 20:00 65 06/07/19 19:45 66 27 90/52 (65) 100 06/07/19 19:30 70 25 100/57 (71) 100 06/07/19 19:21 72 29 106/59 (75) 100 06/07/19 19:17 65 27 83/50 (61) 100 06/07/19 19:15 64 28 84/50 (61) 100 06/07/19 19:00 85/51 06/07/19 19:00 66 27 85/51 (62) 100 06/07/19 18:57 Non-Rebreather 15.0 06/07/19 18:45 74 33 111/61 (78) 99 06/07/19 18:30 78 33 126/72 (90) 98 06/07/19 18:00 71 25 123/63 (83) 100 06/07/19 18:00 123/63 06/07/19 17:30 80 31 125/70 (88) 99 06/07/19 17:00 125/64 06/07/19 17:00 73 26 125/64 (84) 100 06/07/19 16:30 69 25 119/64 (82) 100 06/07/19 16:00 71 06/07/19 16:00 98.9 69 22 100/60 (73) 98 06/07/19 16:00 Non-Rebreather 15.0 06/07/19 16:00 100/60 06/07/19 16:00 15.0 06/07/19 15:30 Non-Rebreather 15.0 100 06/07/19 15:30 79 23 118/71 (87) 98 06/07/19 15:30 Non-Rebreather 15.0 100 06/07/19 15:00 71 20 100/72 (81) 100 06/07/19 15:00 100/72 Intake and Output 06/07/19 06/08/19 19:00 07:00 Intake Total 886.11 ml 814.71 ml Output Total 15 ml 0 ml Balance 871.11 ml 814.71 ml IV Total 886.11 ml 694.71 ml Other 120 ml Output Urine Total 15 ml 0 ml # Bowel Movements 2 Laboratory Tests 06/07/19 19:30: Stool Occult Blood Negative 06/08/19 05:16: Sodium Level 144, Potassium Level 4.5, Chloride Level 105, Carbon Dioxide Level 20L, Anion Gap 19H, Blood Urea Nitrogen 88H, Creatinine 10.0H, Estimat Glomerular Filtration Rate 5.2, Glucose Level 221H, Lactic Acid Level 1.40, Uric Acid 10.6H, Calcium Level 9.0, Phosphorus Level 7.6H, Magnesium Level 2.6H , Total Bilirubin 0.3, Gamma Glutamyl Transpeptidase 3L, Aspartate Amino Transf (AST/SGOT) 30, Alanine Aminotransferase (ALT/SGPT) 17, Alkaline Phosphatase 86, Total Creatine Kinase 135, Troponin I 0.000, C-Reactive Protein, Quantitative 32.4H, Total Protein 8.9H, Albumin 2.4L, Globulin 6.5, Albumin/Globulin Ratio 0.4L Height (Feet): 6 Height (Inches): 1.00 Weight (Pounds): 207 General Appearance: lethargic EENT: other Cardiovascular: tachycardia Respiratory/Chest: decreased breath sounds Abdomen: distended Objective No change Mic Cole MD Jun 08, 2019 14:44
[2019-06-08] MEDS: Dyna-Hex 2% Top Sol 2oz TOPIC SCH (20:10)
[2019-06-08] MEDS: Depakote ER 500mg tab ORAL SCH (20:11)
--- NOTE | 2019-06-08 20:31 | General Progress Note ---
Assessment/Plan Problem List: (1) Anemia ICD Codes: D64.9 - Anemia, unspecified SNOMED: 407180210 (2) Renal failure ICD Codes: N19 - Unspecified kidney failure SNOMED: 62140647 (3) Suspected COVID-19 virus infection ICD Codes: R68.89 - Other general symptoms and signs SNOMED: 988591276 (4) HTN (hypertension) ICD Codes: I10 - Essential (primary) hypertension SNOMED: 84364767 (5) CASSANDRA (acute kidney injury) ICD Codes: N17.9 - Acute kidney failure, unspecified SNOMED: 7592349, 40828276 (6) Anemia in chronic kidney disease (CKD) ICD Codes: N18.9 - Chronic kidney disease, unspecified; D63.1 - Anemia in chronic kidney disease SNOMED: 582258331 (7) Suspected COVID-19 virus infection ICD Codes: R68.89 - Other general symptoms and signs SNOMED: 697629225 Status: progressing Assessment/Plan: renal failure anemia s/p fluid overload worsening leukocytosis sepsis anemia is not improving getting worse check lytes diaylsis per dr moreno Subjective ROS Limited/Unobtainable: Yes Allergies: Coded Allergies: No Known Allergies (Unverified , 05/28/19) Objective Last 24 Hour Vital Signs Date Time Temp Pulse Resp B/P (MAP) Pulse Ox O2 Delivery O2 Flow Rate FiO2 06/08/19 19:00 72 24 116/55 (75) 100 06/08/19 19:00 116/55 06/08/19 18:30 81 31 120/58 (78) 99 06/08/19 18:00 71 24 124/59 (80) 100 06/08/19 18:00 124/59 06/08/19 17:30 72 26 126/73 (90) 99 06/08/19 17:00 72 28 113/56 (75) 99 06/08/19 17:00 125/69 06/08/19 16:30 74 28 95/54 (68) 97 06/08/19 16:15 88 32 125/69 (87) 96 06/08/19 16:02 132/60 06/08/19 16:00 15.0 06/08/19 16:00 125/69 06/08/19 16:00 Non-Rebreather 15.0 06/08/19 16:00 98.2 72 24 106/44 (64) 100 06/08/19 16:00 66 06/08/19 15:45 76 24 132/60 (84) 100 06/08/19 15:30 73 25 111/62 (78) 100 06/08/19 15:00 85 26 92/62 (72) 98 06/08/19 15:00 93/61 06/08/19 14:30 97 46 104/49 (67) 87 06/08/19 14:00 99/55 06/08/19 14:00 68 23 118/60 (79) 100 06/08/19 13:30 74 22 116/62 (80) 100 06/08/19 13:00 69 23 113/59 (77) 100 06/08/19 13:00 118/62 06/08/19 12:30 80 28 133/80 (97) 100 06/08/19 12:15 75 24 126/59 (81) 100 06/08/19 12:00 Non-Rebreather 15.0 06/08/19 12:00 98.5 68 23 108/66 (80) 100 06/08/19 12:00 108/66 06/08/19 12:00 15.0 06/08/19 12:00 68 06/08/19 11:45 78 27 123/71 (88) 100 06/08/19 11:30 76 23 123/64 (83) 100 06/08/19 11:15 65 22 100/60 (73) 100 06/08/19 11:00 80 30 119/61 (80) 100 06/08/19 11:00 100/60 06/08/19 10:45 67 24 109/63 (78) 100 06/08/19 10:30 72 21 106/61 (76) 100 06/08/19 10:15 67 23 132/65 (87) 100 06/08/19 10:00 132/65 06/08/19 10:00 71 18 105/68 (80) 100 06/08/19 09:45 68 23 129/68 (88) 100 06/08/19 09:30 66 23 107/63 (78) 100 06/08/19 09:15 65 23 109/60 (76) 100 06/08/19 09:00 109/60 06/08/19 09:00 66 24 113/55 (74) 100 06/08/19 08:45 67 23 112/57 (75) 100 06/08/19 08:30 66 23 107/60 (76) 100 06/08/19 08:15 77 29 125/69 (87) 100 06/08/19 08:00 15.0 06/08/19 08:00 72 06/08/19 08:00 98.6 66 24 109/53 (71) 100 06/08/19 08:00 125/69 06/08/19 08:00 Non-Rebreather 15.0 06/08/19 07:45 67 23 101/58 (72) 100 06/08/19 07:30 69 22 110/55 (73) 100 06/08/19 07:00 121/62 06/08/19 07:00 75 25 121/62 (81) 100 06/08/19 06:30 66 23 102/60 (74) 100 06/08/19 06:00 110/59 06/08/19 06:00 65 23 110/59 (76) 100 06/08/19 05:32 116/57 06/08/19 05:30 66 20 120/56 (77) 100 06/08/19 05:00 65 22 108/57 (74) 100 06/08/19 05:00 117/55 06/08/19 04:30 65 23 115/58 (77) 100 06/08/19 04:00 98.3 66 22 105/61 (76) 100 06/08/19 04:00 108/57 06/08/19 04:00 83 06/08/19 04:00 Non-Rebreather 15.0 06/08/19 04:00 15.0 06/08/19 03:30 84 37 136/74 (94) 95 06/08/19 03:00 131/69 06/08/19 03:00 71 31 118/72 (87) 100 06/08/19 02:30 65 24 99/57 (71) 100 06/08/19 02:15 68 24 102/56 (71) 100 06/08/19 02:00 102/56 06/08/19 02:00 72 30 128/64 (85) 100 06/08/19 01:45 73 27 111/55 (73) 100 06/08/19 01:30 74 27 128/61 (83) 100 06/08/19 01:15 70 24 105/58 (74) 100 06/08/19 01:00 105/58 06/08/19 01:00 67 23 106/59 (75) 100 06/08/19 00:45 68 25 109/59 (76) 100 06/08/19 00:30 67 27 110/53 (72) 100 06/08/19 00:15 72 25 118/67 (84) 99 06/08/19 00:00 118/67 06/08/19 00:00 15.0 06/08/19 00:00 Non-Rebreather 15.0 06/08/19 00:00 65 06/08/19 00:00 98.3 78 35 129/66 (87) 98 06/07/19 23:45 66 26 110/56 (74) 100 06/07/19 23:30 68 24 105/63 (77) 100 06/07/19 23:15 66 26 107/58 (74) 100 06/07/19 23:00 66 25 104/56 (72) 100 06/07/19 23:00 107/58 06/07/19 22:30 68 24 99/57 (71) 100 06/07/19 22:15 68 26 105/54 (71) 100 06/07/19 22:00 105/54 06/07/19 22:00 80 34 118/60 (79) 97 06/07/19 21:45 78 32 115/68 (84) 99 06/07/19 21:30 66 28 111/59 (76) 100 06/07/19 21:15 67 28 105/62 (76) 100 06/07/19 21:00 76 26 115/66 (82) 100 06/07/19 21:00 105/62 06/07/19 20:45 65 25 102/56 (71) 100 Intake and Output 06/07/19 06/08/19 19:00 07:00 Intake Total 886.11 ml 814.71 ml Output Total 15 ml 0 ml Balance 871.11 ml 814.71 ml IV Total 886.11 ml 694.71 ml Other 120 ml Output Urine Total 15 ml 0 ml # Bowel Movements 2 Laboratory Tests 06/08/19 05:16: Sodium Level 144, Potassium Level 4.5, Chloride Level 105, Carbon Dioxide Level 20L, Anion Gap 19H, Blood Urea Nitrogen 88H, Creatinine 10.0H, Estimat Glomerular Filtration Rate 5.2, Glucose Level 221H, Lactic Acid Level 1.40, Uric Acid 10.6H, Calcium Level 9.0, Phosphorus Level 7.6H, Magnesium Level 2.6H , Total Bilirubin 0.3, Gamma Glutamyl Transpeptidase 3L, Aspartate Amino Transf (AST/SGOT) 30, Alanine Aminotransferase (ALT/SGPT) 17, Alkaline Phosphatase 86, Total Creatine Kinase 135, Troponin I 0.000, C-Reactive Protein, Quantitative 32.4H, Total Protein 8.9H, Albumin 2.4L, Globulin 6.5, Albumin/Globulin Ratio 0.4L 06/08/19 19:20: Random Vancomycin Level 10.6 Height (Feet): 6 Height (Inches): 1.00 Weight (Pounds): 207 Karishma Mulligan MD Jun 08, 2019 20:31
--- NOTE | 2019-06-08 21:35 | Pulmonology Progress Note ---
Assessment/Plan Assessment/Plan Pulmonary CCM Progress Note HPI: Patient is a 68 year old man, halfway resident, admitted c/o shortness of breath, cough, noted to have Covid 19 Pneumonia. Past Medical History: COPD, CKD, Hypertension, Anemia Has new HD catheter, Psychiatry following Received HD today Remains on NRB, worsening infiltrates, some improvement in O2 sats s/p HD Hypotension requiring pressors, in ICU Seen earlier Allergies: No Known Allergies Improving Pulmonary Status on HD Physical Exam Vital Signs Noted WDWN, no distress HEENT: NCAT,moist mm Chest: Occasional rhonchi Heart: HS1, HS2, RRR Abdomen: SNTND, no masses Extremities: Well perfused, mild edema [employer]: No focal signs, no seizures, responsive to commands. Impression: COVID-19 virus infection Pneumonia Volume overload - on HD Cardiomegaly Lymphopenia Elevated AST COPD Chronic Kidney Disease, worsening renal function - now receiving HD Hypertension Worsening anemia Plan: Antibiotics per ID HD Pressors PRN O2 PRN ABG PRN [employer] Medications 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 Monitor cultures/viral studies PPX Hemodialysis per Renal Psychiatry following Laboratory Tests Noted: CXR: Hypoventilatory exam, interstitial changes, cardiomegaly, worseing infiltrates Subjective ROS Limited/Unobtainable: No Constitutional: Denies: fever Respiratory: Reports: dry cough, shortness of breath Psychiatric: Reports: other - refuses labs Allergies: Coded Allergies: No Known Allergies (Unverified , 05/28/19) Objective Last 24 Hour Vital Signs Date Time Temp Pulse Resp B/P (MAP) Pulse Ox O2 Delivery O2 Flow Rate FiO2 06/08/19 20:43 99 Non-Rebreather 15.0 100 06/08/19 20:00 Non-Rebreather 15.0 06/08/19 19:00 72 24 116/55 (75) 100 06/08/19 19:00 116/55 06/08/19 18:30 81 31 120/58 (78) 99 06/08/19 18:00 71 24 124/59 (80) 100 06/08/19 18:00 124/59 06/08/19 17:30 72 26 126/73 (90) 99 06/08/19 17:00 72 28 113/56 (75) 99 06/08/19 17:00 125/69 06/08/19 16:30 74 28 95/54 (68) 97 4/28/20 16:15 88 32 125/69 (87) 96 06/08/19 16:02 132/60 06/08/19 16:00 15.0 06/08/19 16:00 125/69 06/08/19 16:00 Non-Rebreather 15.0 06/08/19 16:00 98.2 72 24 106/44 (64) 100 06/08/19 16:00 66 06/08/19 15:45 76 24 132/60 (84) 100 06/08/19 15:30 73 25 111/62 (78) 100 06/08/19 15:00 85 26 92/62 (72) 98 06/08/19 15:00 93/61 06/08/19 14:30 97 46 104/49 (67) 87 06/08/19 14:00 99/55 06/08/19 14:00 68 23 118/60 (79) 100 06/08/19 13:30 74 22 116/62 (80) 100 06/08/19 13:00 69 23 113/59 (77) 100 06/08/19 13:00 118/62 06/08/19 12:30 80 28 133/80 (97) 100 06/08/19 12:15 75 24 126/59 (81) 100 06/08/19 12:00 Non-Rebreather 15.0 06/08/19 12:00 98.5 68 23 108/66 (80) 100 06/08/19 12:00 108/66 06/08/19 12:00 15.0 06/08/19 12:00 68 06/08/19 11:45 78 27 123/71 (88) 100 06/08/19 11:30 76 23 123/64 (83) 100 06/08/19 11:15 65 22 100/60 (73) 100 06/08/19 11:00 80 30 119/61 (80) 100 06/08/19 11:00 100/60 06/08/19 10:45 67 24 109/63 (78) 100 06/08/19 10:30 72 21 106/61 (76) 100 06/08/19 10:15 67 23 132/65 (87) 100 06/08/19 10:00 132/65 06/08/19 10:00 71 18 105/68 (80) 100 06/08/19 09:45 68 23 129/68 (88) 100 06/08/19 09:30 66 23 107/63 (78) 100 06/08/19 09:15 65 23 109/60 (76) 100 06/08/19 09:00 109/60 06/08/19 09:00 66 24 113/55 (74) 100 06/08/19 08:45 67 23 112/57 (75) 100 06/08/19 08:30 66 23 107/60 (76) 100 06/08/19 08:15 77 29 125/69 (87) 100 06/08/19 08:00 15.0 06/08/19 08:00 72 06/08/19 08:00 98.6 66 24 109/53 (71) 100 06/08/19 08:00 125/69 06/08/19 08:00 Non-Rebreather 15.0 06/08/19 07:45 67 23 101/58 (72) 100 06/08/19 07:30 69 22 110/55 (73) 100 06/08/19 07:00 121/62 06/08/19 07:00 75 25 121/62 (81) 100 06/08/19 06:30 66 23 102/60 (74) 100 06/08/19 06:00 110/59 06/08/19 06:00 65 23 110/59 (76) 100 06/08/19 05:32 116/57 06/08/19 05:30 66 20 120/56 (77) 100 06/08/19 05:00 65 22 108/57 (74) 100 06/08/19 05:00 117/55 06/08/19 04:30 65 23 115/58 (77) 100 06/08/19 04:00 98.3 66 22 105/61 (76) 100 06/08/19 04:00 108/57 06/08/19 04:00 83 06/08/19 04:00 Non-Rebreather 15.0 06/08/19 04:00 15.0 06/08/19 03:30 84 37 136/74 (94) 95 06/08/19 03:00 131/69 06/08/19 03:00 71 31 118/72 (87) 100 06/08/19 02:30 65 24 99/57 (71) 100 06/08/19 02:15 68 24 102/56 (71) 100 06/08/19 02:00 102/56 06/08/19 02:00 72 30 128/64 (85) 100 06/08/19 01:45 73 27 111/55 (73) 100 06/08/19 01:30 74 27 128/61 (83) 100 06/08/19 01:15 70 24 105/58 (74) 100 06/08/19 01:00 105/58 06/08/19 01:00 67 23 106/59 (75) 100 06/08/19 00:45 68 25 109/59 (76) 100 06/08/19 00:30 67 27 110/53 (72) 100 06/08/19 00:15 72 25 118/67 (84) 99 06/08/19 00:00 118/67 06/08/19 00:00 15.0 06/08/19 00:00 Non-Rebreather 15.0 06/08/19 00:00 65 06/08/19 00:00 98.3 78 35 129/66 (87) 98 06/07/19 23:45 66 26 110/56 (74) 100 06/07/19 23:30 68 24 105/63 (77) 100 06/07/19 23:15 66 26 107/58 (74) 100 06/07/19 23:00 66 25 104/56 (72) 100 06/07/19 23:00 107/58 06/07/19 22:30 68 24 99/57 (71) 100 06/07/19 22:15 68 26 105/54 (71) 100 06/07/19 22:00 105/54 06/07/19 22:00 80 34 118/60 (79) 97 06/07/19 21:45 78 32 115/68 (84) 99 Intake and Output 06/07/19 06/08/19 19:00 07:00 Intake Total 886.11 ml 814.71 ml Output Total 15 ml 0 ml Balance 871.11 ml 814.71 ml IV Total 886.11 ml 694.71 ml Other 120 ml Output Urine Total 15 ml 0 ml # Bowel Movements 2 General Appearance: no acute distress HEENT: mucous membranes moist Abdomen: soft, non tender, other - NG tube Extremities: no edema, other - 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 Skin: no rash Neurologic/Psychiatric: other - mostly sleeping Laboratory Tests 06/08/19 05:16: Sodium Level 144, Potassium Level 4.5, Chloride Level 105, Carbon Dioxide Level 20L, Anion Gap 19H, Blood Urea Nitrogen 88H, Creatinine 10.0H, Estimat Glomerular Filtration Rate 5.2, Glucose Level 221H, Lactic Acid Level 1.40, Uric Acid 10.6H, Calcium Level 9.0, Phosphorus Level 7.6H, Magnesium Level 2.6H , Total Bilirubin 0.3, Gamma Glutamyl Transpeptidase 3L, Aspartate Amino Transf (AST/SGOT) 30, Alanine Aminotransferase (ALT/SGPT) 17, Alkaline Phosphatase 86, Total Creatine Kinase 135, Troponin I 0.000, C-Reactive Protein, Quantitative 32.4H, Total Protein 8.9H, Albumin 2.4L, Globulin 6.5, Albumin/Globulin Ratio 0.4L 06/08/19 19:20: Random Vancomycin Level 10.6 Current Medications Medications (Trade) Dose Ordered Sig/Anthony Route PRN Reason Start Time Stop Time Status Last Admin Dose Admin Acetaminophen (Tylenol) 650 mg Q6H PRN ORAL MILD PAIN/Temp >100.5 06/07/19 00:00 07/07/19 00:00 Albumin Human 250 ml @ 0 mls/hr Q0M PRN IV For hypotension 06/06/19 21:15 09/04/19 12:44 Albuterol Sulfate (Proventil MDI) 2 puff Q4HRT INH 06/06/19 23:00 08/30/19 18:59 06/08/19 18:30 Allopurinol (allopurinoL) 300 mg DAILY NG 06/08/19 09:30 07/08/19 09:29 06/08/19 10:00 Cefepime HCl 1 gm/ Dextrose 55 ml @ 110 mls/hr Q24H IVPB 06/07/19 13:00 06/13/19 12:59 06/08/19 13:41 Chlorhexidine Gluconate (Michelle-Hex 2%) 1 applic DAILY@2000 TOPIC 06/07/19 20:00 09/05/19 19:59 06/08/19 20:10 Divalproex Sodium (Depakote ER) 500 mg BEDTIME ORAL 06/07/19 21:00 07/01/19 20:59 06/08/19 20:11 Docusate Sodium (Colace) 100 mg THREE TIMES A DAY NG 06/07/19 13:00 07/07/19 12:59 06/08/19 17:34 Enoxaparin Sodium (Lovenox) 30 mg DAILY SUBQ 06/07/19 09:00 08/27/19 08:59 06/08/19 09:08 Epoetin Aftab (Epoetin Aftab(ESRD on dialysis)) 10,000 unit SUBQ 06/07/19 21:00 08/31/19 20:59 06/07/19 21:32 Hydralazine HCl (Apresoline) 10 mg Q4H PRN IV Blood pressure over 160 systol 06/07/19 10:15 09/05/19 10:14 Norepinephrine Bitartrate 8 mg/ Dextrose 558 ml @ 0 mls/hr Q24H IV 06/07/19 09:00 07/07/19 08:59 06/08/19 16:02 Pantoprazole (Protonix) 40 mg Q12HR IVP 06/07/19 21:00 07/07/19 08:59 06/08/19 20:11 Salmeterol Xinafoate/ Fluticasone (Advair 100/50 Diskus) 1 puffs BID INH 06/07/19 09:00 08/27/19 08:59 06/08/19 18:30 Sevelamer Carbonate (Renvela) 1,600 mg THREE TIMES A DAY NG 06/07/19 13:00 09/05/19 12:59 06/08/19 17:34 Sodium Citrate (Bicitra) 30 ml Q8HR NG 06/07/19 14:00 06/28/19 11:59 06/08/19 13:40 Vancomycin HCl (Vanco rx to dose) 1 ea DAILY PRN MISC Per rx protocol 06/07/19 11:00 07/07/19 10:59 Vancomycin HCl 1 gm/Dextrose 275 ml @ 183.708 mls/hr ONCE IVPB 06/08/19 23:00 06/09/19 01:00 Arturo Mckeon MD Jun 08, 2019 21:35
[2019-06-08] MEDS ORDERED: Vancomycin 1gm in D5W 275ml IVPB SCH (23:00)
[2019-06-09] VITALS (61 sets, daily range): BP systolic 89–144; BP diastolic 51–72
--- NOTE | 2019-06-09 00:10 | Psych Consult Progress Note ---
Psychiatry Progress Note Psychiatry Progress Note Subjective the pt is decompensating. less agitated. no major changes. more confused. Medications Current Medications Medications (Trade) Dose Ordered Sig/Anthony Route PRN Reason Start Time Stop Time Status Last Admin Dose Admin Acetaminophen (Tylenol) 650 mg Q6H PRN ORAL MILD PAIN/Temp >100.5 06/07/19 00:00 07/07/19 00:00 Albumin Human 250 ml @ 0 mls/hr Q0M PRN IV For hypotension 06/06/19 21:15 09/04/19 12:44 Albuterol Sulfate (Proventil MDI) 2 puff Q4HRT INH 06/06/19 23:00 08/30/19 18:59 06/08/19 22:28 Allopurinol (allopurinoL) 300 mg DAILY NG 06/08/19 09:30 07/08/19 09:29 06/08/19 10:00 Cefepime HCl 1 gm/ Dextrose 55 ml @ 110 mls/hr Q24H IVPB 06/07/19 13:00 06/13/19 12:59 06/08/19 13:41 Chlorhexidine Gluconate (Michelle-Hex 2%) 1 applic DAILY@2000 TOPIC 06/07/19 20:00 09/05/19 19:59 06/08/19 20:10 Divalproex Sodium (Depakote ER) 500 mg BEDTIME ORAL 06/07/19 21:00 07/01/19 20:59 06/08/19 20:11 Docusate Sodium (Colace) 100 mg THREE TIMES A DAY NG 06/07/19 13:00 07/07/19 12:59 06/08/19 17:34 Enoxaparin Sodium (Lovenox) 30 mg DAILY SUBQ 06/07/19 09:00 08/27/19 08:59 06/08/19 09:08 Epoetin Aftab (Epoetin Aftab(ESRD on dialysis)) 10,000 unit FRI-FRI-FRI SUBQ 06/07/19 21:00 08/31/19 20:59 06/07/19 21:32 Hydralazine HCl (Apresoline) 10 mg Q4H PRN IV Blood pressure over 160 systol 06/07/19 10:15 09/05/19 10:14 Norepinephrine Bitartrate 8 mg/ Dextrose 558 ml @ 0 mls/hr Q24H IV 06/07/19 09:00 07/07/19 08:59 06/08/19 16:02 Pantoprazole (Protonix) 40 mg Q12HR IVP 06/07/19 21:00 07/07/19 08:59 06/08/19 20:11 Salmeterol Xinafoate/ Fluticasone (Advair 100/50 Diskus) 1 puffs BID INH 06/07/19 09:00 08/27/19 08:59 06/08/19 18:30 Sevelamer Carbonate (Renvela) 1,600 mg THREE TIMES A DAY NG 06/07/19 13:00 09/05/19 12:59 06/08/19 17:34 Sodium Citrate (Bicitra) 30 ml Q8HR NG 06/07/19 14:00 06/28/19 11:59 06/08/19 22:27 Vancomycin HCl (Vanco rx to dose) 1 ea DAILY PRN MISC Per rx protocol 06/07/19 11:00 07/07/19 10:59 Vancomycin HCl 1 gm/Dextrose 275 ml @ 183.708 mls/hr ONCE IVPB 06/08/19 23:00 06/09/19 01:00 06/08/19 22:28 Allergies: Coded Allergies: No Known Allergies (Unverified , 05/28/19) Objective Data Height (Feet): 6 Height (Inches): 1.00 Weight (Pounds): 207 General Appearance: confused, agitated - at times Behavior Mannerisms: poor eye contact Mental Status Exam - Affect: constricted Mental Status Exam - Suicidal: not present Assessment/Plan [place] I: Acute encephalopathy MDD Dc the depakote restarted by pulmonology dw pmd Status: progressing Guicho Pimentel MD Jun 09, 2019 00:10
[2019-06-09] MEDS: Albuterol 90mcg Inhaler 8gm INH SCH ×6 (03:17→23:02)
[2019-06-09 05:44] LABS: HEMATOCRIT 19.9 % (42.0-52.0); MEAN CORPUSCULAR VOLUME 90 FL (80-99); PLATELET COUNT 199 K/UL (150-450); RED BLOOD COUNT 2.21 M/UL (4.70-6.10); RED CELL DISTRIBUTION WIDTH 13.9 % (11.6-14.8); WHITE BLOOD COUNT 21.4 K/UL (4.8-10.8)
[2019-06-09] MEDS: Sodium Citrate 30ml NG SCH ×3 (05:46→21:48)
[2019-06-09] MEDS: D5W IV SCH (05:56)
[2019-06-09] MEDS: NOREPINEPHRINE BITARTRATE IV SCH (05:56)
[2019-06-09 06:07] LABS: HEMOGLOBIN 6.8 G/DL (14.2-18.0)
[2019-06-09 06:10] LABS: ALANINE AMINOTRANSFERASE 11 U/L (12-78); ALBUMIN 2.2 G/DL (3.4-5.0); ALBUMIN/GLOBULIN RATIO 0.4 (1.0-2.7); ALKALINE PHOSPHATASE 78 U/L (46-116); ANION GAP 20 mmol/L (5-15); ASPARTATE AMINO TRANSFERASE 28 U/L (15-37); BILIRUBIN,TOTAL 0.3 MG/DL (0.2-1.0); BLOOD UREA NITROGEN 91 mg/dL (7-18); CALCIUM 8.7 MG/DL (8.5-10.1); CARBON DIOXIDE 21 MMOL/L (21-32); CHLORIDE 99 MMOL/L (98-107); CREATININE 10.6 MG/DL (0.55-1.30); GAMMA GLUTAMYL TRANSPEPTIDASE 3 U/L (5-85); LACTATE DEHYDROGENASE 449 U/L (81-234); PHOSPHORUS 6.1 MG/DL (2.5-4.9); POTASSIUM 3.6 MMOL/L (3.5-5.1); SODIUM 139 MMOL/L (136-145)
--- NOTE | 2019-06-09 07:42 | Hematology/Onc Progress Note ---
Assessment/Plan Assessment/Plan Assessment and Recs: # Anemia of chronic disease, likely related ot underlying kidney disease --> hgb trend 9-->8-->7.3-->7.9-->6.8 --> transfuse as needed, hgb goal >7 --> no evidence of hemolysis --> peripheral smear has been reviewed --> epogen started tid ==>> transfuse w 2 units 06/08 # Leukocytosis likely related to suspected COVID-19 virus infection --> on abx and plaquenil --> trend smear as needed --> initially 4-->11-->14.5-->21-->26-->21 --> pulm is aware --> on abx cefepime/vanc # Lymphopenia --> likely related to covid19 # Possible Pneumonia # Cardiomegaly # Transaminitis with Elevated AST # COPD # Chronic Kidney Disease --> per renal hd # Hypertension # Dvt ppx lovenox Appreciate consultation and dw Rn Subjective Constitutional: Denies: no symptoms, chills, fever, malaise, weakness, other HEENT: Denies: no symptoms, eye pain, blurred vision, tearing, double vision, ear pain, ear discharge, nose pain, nose congestion, throat pain, throat swelling, mouth pain, mouth swelling, other Gastrointestinal/Abdominal: Denies: no symptoms, abdomen distended, abdominal pain, black stools, tarry stools, blood in stool, constipated, diarrhea, difficulty swallowing, nausea, poor appetite, poor fluid intake, rectal bleeding , vomiting, other Genitourinary: Denies: no symptoms, burning, discharge, frequency, flank pain, hematuria, incontinence, pain, urgency, other Neurologic/Psychiatric: Denies: no symptoms, anxiety, depressed, emotional problems, headache, numbness, paresthesia, pre-existing deficit, seizure, tingling, tremors, weakness, other Hematologic/Lymphatic: Denies: no symptoms, anemia, easy bleeding, easy bruising, adenopathy, other Allergies: Coded Allergies: No Known Allergies (Unverified , 05/28/19) Subjective 06/01 extremely agitated, not allowing labs draws, no night sweats, cbc ordered 06/02 confused, restraints, on abx and plaquenil, hgb 7.9, nrb 15 L 06/03 is with nonrebreather, but not compliant, remains confused 06/05 no bleeding, labs noted, no major bleeding, otherwise comfortable 06/06 labs reviewed, no bleeding, meds noted, no night sweats, on levo and nonrebreather 06/07 labs noted, no bleeding, meds reviewed, no bleeding, wbc higher 06/08 to get 2 units prbc, no night sweats, meds reviewed Objective Objective Current Medications Medications (Trade) Dose Ordered Sig/Anthony Route PRN Reason Start Time Stop Time Status Last Admin Dose Admin Acetaminophen (Tylenol) 650 mg Q6H PRN ORAL MILD PAIN/Temp >100.5 06/07/19 00:00 07/07/19 00:00 Albumin Human 250 ml @ 0 mls/hr Q0M PRN IV For hypotension 06/06/19 21:15 09/04/19 12:44 Albuterol Sulfate (Proventil MDI) 2 puff Q4HRT INH 06/06/19 23:00 08/30/19 18:59 06/09/19 05:46 Allopurinol (allopurinoL) 300 mg DAILY NG 06/08/19 09:30 07/08/19 09:29 06/08/19 10:00 Cefepime HCl 1 gm/ Dextrose 55 ml @ 110 mls/hr Q24H IVPB 06/07/19 13:00 06/13/19 12:59 06/08/19 13:41 Chlorhexidine Gluconate (Michelle-Hex 2%) 1 applic DAILY@2000 TOPIC 06/07/19 20:00 09/05/19 19:59 06/08/19 20:10 Docusate Sodium (Colace) 100 mg THREE TIMES A DAY NG 06/07/19 13:00 07/07/19 12:59 06/08/19 17:34 Enoxaparin Sodium (Lovenox) 30 mg DAILY SUBQ 06/07/19 09:00 08/27/19 08:59 06/08/19 09:08 Epoetin Aftab (Epoetin Aftab(ESRD on dialysis)) 10,000 unit FRI-WED-FRI SUBQ 06/07/19 21:00 08/31/19 20:59 06/07/19 21:32 Hydralazine HCl (Apresoline) 10 mg Q4H PRN IV Blood pressure over 160 systol 06/07/19 10:15 09/05/19 10:14 Norepinephrine Bitartrate 8 mg/ Dextrose 558 ml @ 0 mls/hr Q24H IV 06/07/19 09:00 07/07/19 08:59 06/09/19 05:56 Pantoprazole (Protonix) 40 mg Q12HR IVP 06/07/19 21:00 07/07/19 08:59 06/08/19 20:11 Salmeterol Xinafoate/ Fluticasone (Advair 100/50 Diskus) 1 puffs BID INH 06/07/19 09:00 08/27/19 08:59 06/08/19 18:30 Sevelamer Carbonate (Renvela) 1,600 mg THREE TIMES A DAY NG 06/07/19 13:00 09/05/19 12:59 06/08/19 17:34 Sodium Citrate (Bicitra) 30 ml Q8HR NG 06/07/19 14:00 06/28/19 11:59 06/09/19 05:46 Vancomycin HCl (Vanco rx to dose) 1 ea DAILY PRN MISC Per rx protocol 06/07/19 11:00 07/07/19 10:59 Last 24 Hour Vital Signs Date Time Temp Pulse Resp B/P (MAP) Pulse Ox O2 Delivery O2 Flow Rate FiO2 06/09/19 07:00 91/50 06/09/19 07:00 72 21 95/55 (68) 100 06/09/19 06:30 79 24 101/60 (74) 100 06/09/19 06:00 78 24 111/61 (78) 100 06/09/19 06:00 108/68 06/09/19 05:56 108/68 06/09/19 05:45 80 26 108/68 (81) 100 06/09/19 05:30 72 22 115/59 (77) 100 06/09/19 05:15 71 19 101/61 (74) 100 06/09/19 05:00 71 23 113/62 (79) 100 06/09/19 05:00 101/61 06/09/19 04:45 70 20 99/59 (72) 100 06/09/19 04:30 77 25 109/60 (76) 100 06/09/19 04:15 72 17 109/53 (71) 100 06/09/19 04:00 15.0 06/09/19 04:00 82 06/09/19 04:00 109/53 06/09/19 04:00 Non-Rebreather 15.0 06/09/19 04:00 98.1 71 19 92/56 (68) 100 06/09/19 03:30 90 33 104/56 (72) 95 06/09/19 03:00 81 29 117/61 (79) 100 06/09/19 03:00 98/58 06/09/19 02:30 72 22 99/51 (67) 100 06/09/19 02:00 84 27 121/68 (85) 98 06/09/19 02:00 109/60 06/09/19 01:30 77 23 122/58 (79) 100 06/09/19 01:00 71 22 105/56 (72) 100 06/09/19 01:00 102/55 06/09/19 00:30 81 31 112/63 (79) 93 06/09/19 00:00 Non-Rebreather 15.0 06/09/19 00:00 15.0 06/09/19 00:00 103/55 06/09/19 00:00 75 06/09/19 00:00 98.0 77 25 105/60 (75) 99 06/08/19 23:45 81 30 115/64 (81) 97 06/08/19 23:30 73 25 95/58 (70) 100 06/08/19 23:15 78 26 109/61 (77) 100 06/08/19 23:00 74 23 103/62 (76) 100 06/08/19 23:00 109/61 06/08/19 22:45 73 23 99/58 (72) 100 06/08/19 22:30 78 25 107/60 (76) 100 06/08/19 22:15 76 24 106/66 (79) 98 06/08/19 22:00 79 29 97/58 (71) 98 06/08/19 22:00 106/66 06/08/19 21:45 81 28 115/62 (79) 98 06/08/19 21:30 83 32 120/63 (82) 99 06/08/19 21:15 76 23 94/59 (71) 98 06/08/19 21:00 83 27 111/63 (79) 98 06/08/19 21:00 94/59 06/08/19 20:45 83 33 120/69 (86) 98 06/08/19 20:43 99 Non-Rebreather 15.0 100 06/08/19 20:30 84 32 114/71 (85) 98 06/08/19 20:15 75 27 117/62 (80) 100 06/08/19 20:00 66 06/08/19 20:00 15.0 06/08/19 20:00 98.3 75 28 108/59 (75) 100 06/08/19 20:00 Non-Rebreather 15.0 06/08/19 20:00 117/62 06/08/19 19:45 72 25 99/58 (72) 100 06/08/19 19:30 83 31 118/66 (83) 100 06/08/19 19:00 72 24 116/55 (75) 100 06/08/19 19:00 116/55 06/08/19 18:30 81 31 120/58 (78) 99 06/08/19 18:00 71 24 124/59 (80) 100 06/08/19 18:00 124/59 06/08/19 17:30 72 26 126/73 (90) 99 06/08/19 17:00 72 28 113/56 (75) 99 06/08/19 17:00 125/69 06/08/19 16:30 74 28 95/54 (68) 97 06/08/19 16:15 88 32 125/69 (87) 96 06/08/19 16:02 132/60 06/08/19 16:00 15.0 06/08/19 16:00 125/69 06/08/19 16:00 Non-Rebreather 15.0 06/08/19 16:00 98.2 72 24 106/44 (64) 100 06/08/19 16:00 66 06/08/19 15:45 76 24 132/60 (84) 100 06/08/19 15:30 73 25 111/62 (78) 100 06/08/19 15:00 85 26 92/62 (72) 98 06/08/19 15:00 93/61 06/08/19 14:30 97 46 104/49 (67) 87 06/08/19 14:00 99/55 06/08/19 14:00 68 23 118/60 (79) 100 06/08/19 13:30 74 22 116/62 (80) 100 06/08/19 13:00 69 23 113/59 (77) 100 06/08/19 13:00 118/62 06/08/19 12:30 80 28 133/80 (97) 100 06/08/19 12:15 75 24 126/59 (81) 100 06/08/19 12:00 Non-Rebreather 15.0 06/08/19 12:00 98.5 68 23 108/66 (80) 100 06/08/19 12:00 108/66 06/08/19 12:00 15.0 06/08/19 12:00 68 06/08/19 11:45 78 27 123/71 (88) 100 06/08/19 11:30 76 23 123/64 (83) 100 06/08/19 11:15 65 22 100/60 (73) 100 06/08/19 11:00 80 30 119/61 (80) 100 06/08/19 11:00 100/60 06/08/19 10:45 67 24 109/63 (78) 100 06/08/19 10:30 72 21 106/61 (76) 100 06/08/19 10:15 67 23 132/65 (87) 100 06/08/19 10:00 132/65 06/08/19 10:00 71 18 105/68 (80) 100 06/08/19 09:45 68 23 129/68 (88) 100 06/08/19 09:30 66 23 107/63 (78) 100 06/08/19 09:15 65 23 109/60 (76) 100 06/08/19 09:00 109/60 06/08/19 09:00 66 24 113/55 (74) 100 06/08/19 08:45 67 23 112/57 (75) 100 06/08/19 08:30 66 23 107/60 (76) 100 06/08/19 08:15 77 29 125/69 (87) 100 06/08/19 08:00 15.0 06/08/19 08:00 72 06/08/19 08:00 98.6 66 24 109/53 (71) 100 06/08/19 08:00 125/69 06/08/19 08:00 Non-Rebreather 15.0 06/08/19 07:45 67 23 101/58 (72) 100 06/08/19 07:30 69 22 110/55 (73) 100 06/08/19 07:00 121/62 06/08/19 07:00 75 25 121/62 (81) 100 06/08/19 06:30 66 23 102/60 (74) 100 06/08/19 06:00 110/59 06/08/19 06:00 65 23 110/59 (76) 100 06/08/19 05:32 116/57 06/08/19 05:30 66 20 120/56 (77) 100 06/08/19 05:00 65 22 108/57 (74) 100 06/08/19 05:00 117/55 06/08/19 04:30 65 23 115/58 (77) 100 06/08/19 04:00 98.3 66 22 105/61 (76) 100 06/08/19 04:00 108/57 06/08/19 04:00 83 06/08/19 04:00 Non-Rebreather 15.0 06/08/19 04:00 15.0 06/08/19 03:30 84 37 136/74 (94) 95 06/08/19 03:00 131/69 06/08/19 03:00 71 31 118/72 (87) 100 06/08/19 02:30 65 24 99/57 (71) 100 06/08/19 02:15 68 24 102/56 (71) 100 06/08/19 02:00 102/56 06/08/19 02:00 72 30 128/64 (85) 100 06/08/19 01:45 73 27 111/55 (73) 100 06/08/19 01:30 74 27 128/61 (83) 100 06/08/19 01:15 70 24 105/58 (74) 100 06/08/19 01:00 105/58 06/08/19 01:00 67 23 106/59 (75) 100 06/08/19 00:45 68 25 109/59 (76) 100 06/08/19 00:30 67 27 110/53 (72) 100 06/08/19 00:15 72 25 118/67 (84) 99 06/08/19 00:00 118/67 06/08/19 00:00 15.0 06/08/19 00:00 Non-Rebreather 15.0 06/08/19 00:00 65 06/08/19 00:00 98.3 78 35 129/66 (87) 98 06/07/19 23:45 66 26 110/56 (74) 100 06/07/19 23:30 68 24 105/63 (77) 100 06/07/19 23:15 66 26 107/58 (74) 100 06/07/19 23:00 66 25 104/56 (72) 100 06/07/19 23:00 107/58 06/07/19 22:30 68 24 99/57 (71) 100 06/07/19 22:15 68 26 105/54 (71) 100 06/07/19 22:00 105/54 06/07/19 22:00 80 34 118/60 (79) 97 06/07/19 21:45 78 32 115/68 (84) 99 06/07/19 21:30 66 28 111/59 (76) 100 06/07/19 21:15 67 28 105/62 (76) 100 06/07/19 21:00 76 26 115/66 (82) 100 06/07/19 21:00 105/62 06/07/19 20:45 65 25 102/56 (71) 100 06/07/19 20:30 65 24 100/56 (71) 100 06/07/19 20:26 107/57 06/07/19 20:15 66 23 107/57 (74) 100 06/07/19 20:00 15.0 06/07/19 20:00 Non-Rebreather 15.0 06/07/19 20:00 98.5 68 23 106/53 (70) 100 06/07/19 20:00 107/57 06/07/19 20:00 65 06/07/19 19:45 66 27 90/52 (65) 100 06/07/19 19:30 70 25 100/57 (71) 100 06/07/19 19:21 72 29 106/59 (75) 100 06/07/19 19:17 65 27 83/50 (61) 100 06/07/19 19:15 64 28 84/50 (61) 100 06/07/19 19:00 85/51 06/07/19 19:00 66 27 85/51 (62) 100 06/07/19 18:57 Non-Rebreather 15.0 06/07/19 18:45 74 33 111/61 (78) 99 06/07/19 18:30 78 33 126/72 (90) 98 06/07/19 18:00 71 25 123/63 (83) 100 06/07/19 18:00 123/63 06/07/19 17:30 80 31 125/70 (88) 99 06/07/19 17:00 125/64 06/07/19 17:00 73 26 125/64 (84) 100 06/07/19 16:30 69 25 119/64 (82) 100 06/07/19 16:00 71 06/07/19 16:00 98.9 69 22 100/60 (73) 98 06/07/19 16:00 Non-Rebreather 15.0 06/07/19 16:00 100/60 06/07/19 16:00 15.0 06/07/19 15:30 Non-Rebreather 15.0 100 06/07/19 15:30 79 23 118/71 (87) 98 06/07/19 15:30 Non-Rebreather 15.0 100 06/07/19 15:00 71 20 100/72 (81) 100 06/07/19 15:00 100/72 06/07/19 14:30 72 15 101/64 (76) 100 06/07/19 14:00 103/62 06/07/19 14:00 69 15 103/62 (76) 100 06/07/19 13:30 72 21 102/65 (77) 99 06/07/19 13:15 73 24 103/62 (76) 100 06/07/19 13:00 99/54 06/07/19 13:00 74 32 99/54 (69) 96 06/07/19 12:45 72 33 92/62 (72) 97 06/07/19 12:30 81 30 105/52 (69) 94 06/07/19 12:15 73 35 91/61 (71) 93 06/07/19 12:00 98.7 73 33 98/61 (73) 97 06/07/19 12:00 98/61 06/07/19 12:00 15.0 06/07/19 12:00 74 06/07/19 12:00 Non-Rebreather 15.0 06/07/19 11:45 87 44 108/63 (78) 90 06/07/19 11:42 Non-Rebreather 15.0 100 06/07/19 11:42 Non-Rebreather 15.0 100 06/07/19 11:30 76 29 90/60 (70) 100 06/07/19 11:15 76 28 94/53 (67) 100 06/07/19 11:00 67 24 90/61 (71) 100 06/07/19 11:00 90/61 06/07/19 10:30 73 31 100/57 (71) 100 06/07/19 10:00 81 29 109/59 (76) 98 06/07/19 10:00 91/61 06/07/19 10:00 91/61 06/07/19 09:30 81 35 109/63 (78) 98 06/07/19 09:00 77 30 111/50 (70) 100 06/07/19 09:00 84/57 06/07/19 08:30 81 30 109/65 (80) 93 06/07/19 08:00 98.4 80 31 107/58 (74) 98 06/07/19 08:00 Non-Rebreather 15.0 06/07/19 08:00 98/63 06/07/19 08:00 15.0 06/07/19 08:00 75 Intake and Output 06/08/19 06/09/19 19:00 07:00 Intake Total 565.57 ml 445.02 ml Output Total 1 ml 0 ml Balance 564.57 ml 445.02 ml IV Total 565.57 ml 385.02 ml Other 60 ml Output Urine Total 0 ml 0 ml Stool Total 1 ml # Bowel Movements 1 Labs Test 06/06/19 20:10 06/07/19 04:37 06/07/19 08:02 06/07/19 19:30 Arterial Blood pH 7.300 (7.350-7.450) 7.296 (7.350-7.450) Arterial Blood Partial Pressure CO2 30.5 mmHg (35.0-45.0) 31.3 mmHg (35.0-45.0) Arterial Blood Partial Pressure O2 101.0 mmHg (75.0-100.0) 96.1 mmHg (75.0-100.0) Arterial Blood HCO3 14.9 mmol/L (22.0-26.0) 14.9 mmol/L (22.0-26.0) Arterial Blood Oxygen Saturation 96.8 % (95-100) 96.0 % (95-100) Arterial Blood Base Excess -10.3 (-2-2) -10.5 (-2-2) Kosta Test Positive Positive White Blood Count 25.6 K/UL (4.8-10.8) Red Blood Count 2.54 M/UL (4.70-6.10) Hemoglobin 7.9 G/DL (14.2-18.0) Hematocrit 23.3 % (42.0-52.0) Mean Corpuscular Volume 92 FL (80-99) Mean Corpuscular Hemoglobin 31.1 PG (27.0-31.0) Mean Corpuscular Hemoglobin Concent 33.9 G/DL (32.0-36.0) Red Cell Distribution Width 13.2 % (11.6-14.8) Platelet Count 297 K/UL (150-450) Mean Platelet Volume 7.1 FL (6.5-10.1) Neutrophils (%) (Auto) % (45.0-75.0) Lymphocytes (%) (Auto) % (20.0-45.0) Monocytes (%) (Auto) % (1.0-10.0) Eosinophils (%) (Auto) % (0.0-3.0) Basophils (%) (Auto) % (0.0-2.0) Differential Total Cells Counted 100 Neutrophils % (Manual) 82 % (45-75) Lymphocytes % (Manual) 10 % (20-45) Monocytes % (Manual) 4 % (1-10) Eosinophils % (Manual) 0 % (0-3) Basophils % (Manual) 0 % (0-2) Metamyelocytes % 1 % (0-0) Myelocytes % 2 % (0-0) Band Neutrophils 1 % (0-8) Platelet Estimate Adequate Platelet Morphology Normal Polychromasia 1+ Hypochromasia 1+ Sodium Level 144 MMOL/L (136-145) Potassium Level 4.6 MMOL/L (3.5-5.1) Chloride Level 104 MMOL/L (98-107) Carbon Dioxide Level 16 MMOL/L (21-32) Anion Gap 24 mmol/L (5-15) Blood Urea Nitrogen 75 mg/dL (7-18) Creatinine 8.2 MG/DL (0.55-1.30) Estimat Glomerular Filtration Rate 6.6 mL/min (>60) Glucose Level 149 MG/DL (74-106) Calcium Level 9.6 MG/DL (8.5-10.1) Phosphorus Level 8.7 MG/DL (2.5-4.9) Total Bilirubin 0.4 MG/DL (0.2-1.0) Aspartate Amino Transf (AST/SGOT) 42 U/L (15-37) Alanine Aminotransferase (ALT/SGPT) 8 U/L (12-78) Alkaline Phosphatase 87 U/L (46-116) Troponin I 0.004 ng/mL (0.000-0.056) C-Reactive Protein, Quantitative 38.1 mg/dL (0.00-0.90) Pro-B-Type Natriuretic Peptide 9119 pg/mL (0-125) Total Protein 9.4 G/DL (6.4-8.2) Albumin 2.7 G/DL (3.4-5.0) Globulin 6.7 g/dL Albumin/Globulin Ratio 0.4 (1.0-2.7) Stool Occult Blood Negative (NEGATIVE) Test 06/08/19 05:16 06/08/19 19:20 06/09/19 04:20 Sodium Level 144 MMOL/L (136-145) 139 MMOL/L (136-145) Potassium Level 4.5 MMOL/L (3.5-5.1) 3.6 MMOL/L (3.5-5.1) Chloride Level 105 MMOL/L (98-107) 99 MMOL/L (98-107) Carbon Dioxide Level 20 MMOL/L (21-32) 21 MMOL/L (21-32) Anion Gap 19 mmol/L (5-15) 20 mmol/L (5-15) Blood Urea Nitrogen 88 mg/dL (7-18) 91 mg/dL (7-18) Creatinine 10.0 MG/DL (0.55-1.30) 10.6 MG/DL (0.55-1.30) Estimat Glomerular Filtration Rate 5.2 mL/min (>60) 4.9 mL/min (>60) Glucose Level 221 MG/DL (74-106) 214 MG/DL (74-106) Lactic Acid Level 1.40 mmol/L (0.4-2.0) Uric Acid 10.6 MG/DL (2.6-7.2) 9.8 MG/DL (2.6-7.2) Calcium Level 9.0 MG/DL (8.5-10.1) 8.7 MG/DL (8.5-10.1) Phosphorus Level 7.6 MG/DL (2.5-4.9) 6.1 MG/DL (2.5-4.9) Magnesium Level 2.6 MG/DL (1.8-2.4) 2.4 MG/DL (1.8-2.4) Total Bilirubin 0.3 MG/DL (0.2-1.0) 0.3 MG/DL (0.2-1.0) Gamma Glutamyl Transpeptidase 3 U/L (5-85) 3 U/L (5-85) Aspartate Amino Transf (AST/SGOT) 30 U/L (15-37) 28 U/L (15-37) Alanine Aminotransferase (ALT/SGPT) 17 U/L (12-78) 11 U/L (12-78) Alkaline Phosphatase 86 U/L (46-116) 78 U/L (46-116) Total Creatine Kinase 135 U/L (26-308) Troponin I 0.000 ng/mL (0.000-0.056) C-Reactive Protein, Quantitative 32.4 mg/dL (0.00-0.90) 17.8 mg/dL (0.00-0.90) Total Protein 8.9 G/DL (6.4-8.2) 8.2 G/DL (6.4-8.2) Albumin 2.4 G/DL (3.4-5.0) 2.2 G/DL (3.4-5.0) Globulin 6.5 g/dL 6.0 g/dL Albumin/Globulin Ratio 0.4 (1.0-2.7) 0.4 (1.0-2.7) Random Vancomycin Level 10.6 ug/mL White Blood Count 21.4 K/UL (4.8-10.8) Red Blood Count 2.21 M/UL (4.70-6.10) Hemoglobin 6.8 G/DL (14.2-18.0) Hematocrit 19.9 % (42.0-52.0) Mean Corpuscular Volume 90 FL (80-99) Mean Corpuscular Hemoglobin 30.8 PG (27.0-31.0) Mean Corpuscular Hemoglobin Concent 34.3 G/DL (32.0-36.0) Red Cell Distribution Width 13.9 % (11.6-14.8) Platelet Count 199 K/UL (150-450) Mean Platelet Volume 6.5 FL (6.5-10.1) Neutrophils (%) (Auto) % (45.0-75.0) Lymphocytes (%) (Auto) % (20.0-45.0) Monocytes (%) (Auto) % (1.0-10.0) Eosinophils (%) (Auto) % (0.0-3.0) Basophils (%) (Auto) % (0.0-2.0) D-Dimer 35.20 mg/L FEU (0.00-0.49) Lactate Dehydrogenase 449 U/L (81-234) Pro-B-Type Natriuretic Peptide 5492 pg/mL (0-125) Height (Feet): 6 Height (Inches): 1.00 Weight (Pounds): 178 Objective Sp02 EP Interpretation: reviewed, normal General: no apparent distress, alert, GCS 15, non-toxic Head: normocephalic, atraumatic Heent: bilateral eye normal inspection, bilateral eye PERRL Respiratory: normal breath sounds, no respiratory distress, NRB+ Cardiovascular: regular rate, rhythm, no edema Gastrointestinal: normal inspection, soft, non-distended Rectal: deferred Musculoskeletal: normal range of motion, non-tender Neurologic: alert, motor strength/tone normal, sensory intact, responsive, speech normal Psychiatric: mood/affect normal, no suicidal/homicidal ideation Skin: Decubitus/Ulcer - See RN skin exam. : jamaal+ Greg Cabral MD Jun 09, 2019 07:42
[2019-06-09] MEDS: Wixela 100/50 Inhaler - 60 dose INH SCH ×2 (08:10→18:49)
[2019-06-09] MEDS: Renvela 800mg Pkt NG SCH ×3 (08:10→18:48)
[2019-06-09] MEDS: Pantoprazole Inj IVP SCH ×2 (08:10→20:45)
[2019-06-09] MEDS: Docusate 100mg/10ml Liq NG SCH ×3 (08:10→18:48)
[2019-06-09] MEDS: Enoxaparin 30mg Inj SUBQ SCH (08:11)
--- NOTE | 2019-06-09 11:46 | Infectious Diseases Prog Note ---
Assessment/Plan Assessment/Plan IMPRESSION: 1. COVID19 pneumonia Positive: 05/27, 05/31 , 06/05 2. MRSA carrier. 3. Chronic kidney disease , end-stage renal disease. 4. COPD. 5. Hypertension. 6. Anemia. 7. Hypothyroidism. 8. Hyperlipidemia. 9. Major depression. 10. Leukocytosis 11. Hypotension 12. Hepatitis C 13. Hyperuricemia RECOMMENDATIONS: Continue Cefepime & IV Vancomycin Will f/u sputum culture Finished hydroxychloroquine. Will f/u COVID19 test Subjective ROS Limited/Unobtainable: Yes Constitutional: Denies: fever Cardiovascular: Reports: other - on low dose Levophed Neurologic: Reports: confusion, other - on restraint Allergies: Coded Allergies: No Known Allergies (Unverified , 05/28/19) Objective Vital Signs Last 24 Hour Vital Signs Date Time Temp Pulse Resp B/P (MAP) Pulse Ox O2 Delivery O2 Flow Rate FiO2 06/09/19 11:30 80 27 89/54 (66) 98 06/09/19 11:00 85 31 120/61 (80) 99 06/09/19 11:00 120/61 06/09/19 10:30 73 22 108/56 (73) 100 06/09/19 10:00 120/65 06/09/19 10:00 88 35 120/65 (83) 97 06/09/19 09:30 73 24 102/51 (68) 100 06/09/19 09:00 80 31 98/57 (71) 99 06/09/19 09:00 98/57 06/09/19 08:30 82 28 116/65 (82) 98 06/09/19 08:00 98.9 70 22 98/53 (68) 100 06/09/19 08:00 15.0 06/09/19 08:00 98/53 06/09/19 08:00 Non-Rebreather 15.0 06/09/19 07:30 72 22 103/52 (69) 100 06/09/19 07:00 91/50 06/09/19 07:00 72 21 95/55 (68) 100 06/09/19 06:30 79 24 101/60 (74) 100 06/09/19 06:00 78 24 111/61 (78) 100 06/09/19 06:00 108/68 06/09/19 05:56 108/68 06/09/19 05:45 80 26 108/68 (81) 100 06/09/19 05:30 72 22 115/59 (77) 100 06/09/19 05:15 71 19 101/61 (74) 100 06/09/19 05:00 71 23 113/62 (79) 100 06/09/19 05:00 101/61 06/09/19 04:45 70 20 99/59 (72) 100 06/09/19 04:30 77 25 109/60 (76) 100 06/09/19 04:15 72 17 109/53 (71) 100 06/09/19 04:00 15.0 06/09/19 04:00 82 06/09/19 04:00 109/53 06/09/19 04:00 Non-Rebreather 15.0 06/09/19 04:00 98.1 71 19 92/56 (68) 100 06/09/19 03:30 90 33 104/56 (72) 95 06/09/19 03:00 81 29 117/61 (79) 100 06/09/19 03:00 98/58 06/09/19 02:30 72 22 99/51 (67) 100 06/09/19 02:00 84 27 121/68 (85) 98 06/09/19 02:00 109/60 06/09/19 01:30 77 23 122/58 (79) 100 06/09/19 01:00 71 22 105/56 (72) 100 06/09/19 01:00 102/55 06/09/19 00:30 81 31 112/63 (79) 93 06/09/19 00:00 Non-Rebreather 15.0 06/09/19 00:00 15.0 06/09/19 00:00 103/55 06/09/19 00:00 75 06/09/19 00:00 98.0 77 25 105/60 (75) 99 06/08/19 23:45 81 30 115/64 (81) 97 06/08/19 23:30 73 25 95/58 (70) 100 06/08/19 23:15 78 26 109/61 (77) 100 06/08/19 23:00 74 23 103/62 (76) 100 06/08/19 23:00 109/61 06/08/19 22:45 73 23 99/58 (72) 100 06/08/19 22:30 78 25 107/60 (76) 100 06/08/19 22:15 76 24 106/66 (79) 98 06/08/19 22:00 79 29 97/58 (71) 98 06/08/19 22:00 106/66 06/08/19 21:45 81 28 115/62 (79) 98 06/08/19 21:30 83 32 120/63 (82) 99 06/08/19 21:15 76 23 94/59 (71) 98 06/08/19 21:00 83 27 111/63 (79) 98 06/08/19 21:00 94/59 06/08/19 20:45 83 33 120/69 (86) 98 06/08/19 20:43 99 Non-Rebreather 15.0 100 06/08/19 20:30 84 32 114/71 (85) 98 06/08/19 20:15 75 27 117/62 (80) 100 06/08/19 20:00 66 06/08/19 20:00 15.0 06/08/19 20:00 98.3 75 28 108/59 (75) 100 06/08/19 20:00 Non-Rebreather 15.0 06/08/19 20:00 117/62 06/08/19 19:45 72 25 99/58 (72) 100 06/08/19 19:30 83 31 118/66 (83) 100 06/08/19 19:00 72 24 116/55 (75) 100 06/08/19 19:00 116/55 06/08/19 18:30 81 31 120/58 (78) 99 06/08/19 18:00 71 24 124/59 (80) 100 06/08/19 18:00 124/59 06/08/19 17:30 72 26 126/73 (90) 99 06/08/19 17:00 72 28 113/56 (75) 99 06/08/19 17:00 125/69 06/08/19 16:30 74 28 95/54 (68) 97 06/08/19 16:15 88 32 125/69 (87) 96 06/08/19 16:02 132/60 06/08/19 16:00 15.0 06/08/19 16:00 125/69 06/08/19 16:00 Non-Rebreather 15.0 06/08/19 16:00 98.2 72 24 106/44 (64) 100 06/08/19 16:00 66 06/08/19 15:45 76 24 132/60 (84) 100 06/08/19 15:30 73 25 111/62 (78) 100 06/08/19 15:00 85 26 92/62 (72) 98 06/08/19 15:00 93/61 06/08/19 14:30 97 46 104/49 (67) 87 06/08/19 14:00 99/55 06/08/19 14:00 68 23 118/60 (79) 100 06/08/19 13:30 74 22 116/62 (80) 100 06/08/19 13:00 69 23 113/59 (77) 100 06/08/19 13:00 118/62 06/08/19 12:30 80 28 133/80 (97) 100 06/08/19 12:15 75 24 126/59 (81) 100 06/08/19 12:00 Non-Rebreather 15.0 06/08/19 12:00 98.5 68 23 108/66 (80) 100 06/08/19 12:00 108/66 06/08/19 12:00 15.0 06/08/19 12:00 68 06/08/19 11:45 78 27 123/71 (88) 100 Height (Feet): 6 Height (Inches): 1.00 Weight (Pounds): 178 HEENT: mucous membranes moist Respiratory/Chest: other - Oxygen by breathing mask Cardiovascular: normal rate, other - femoral HD line Abdomen: other - NGT, NPO Extremities: no edema, other - 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 Neurologic/Psychiatric: disoriented Microbiology Date/Time Source Procedure Growth Status 06/07/19 12:30 Sputum Gram Stain - Final Resulted 06/07/19 12:30 Sputum Sputum Culture Pending Resulted 06/06/19 18:25 Nasopharynx Coronavirus COVID-19 PCR ([facility]) - Final Complete Laboratory Tests Test 06/08/19 19:20 06/09/19 04:20 Random Vancomycin Level 10.6 ug/mL White Blood Count 21.4 K/UL (4.8-10.8) H Red Blood Count 2.21 M/UL (4.70-6.10) L Hemoglobin 6.8 G/DL (14.2-18.0) *L Hematocrit 19.9 % (42.0-52.0) L Mean Corpuscular Volume 90 FL (80-99) Mean Corpuscular Hemoglobin 30.8 PG (27.0-31.0) Mean Corpuscular Hemoglobin Concent 34.3 G/DL (32.0-36.0) Red Cell Distribution Width 13.9 % (11.6-14.8) Platelet Count 199 K/UL (150-450) Mean Platelet Volume 6.5 FL (6.5-10.1) Neutrophils (%) (Auto) % (45.0-75.0) Lymphocytes (%) (Auto) % (20.0-45.0) Monocytes (%) (Auto) % (1.0-10.0) Eosinophils (%) (Auto) % (0.0-3.0) Basophils (%) (Auto) % (0.0-2.0) Differential Total Cells Counted 100 Neutrophils % (Manual) 88 % (45-75) H Lymphocytes % (Manual) 3 % (20-45) L Monocytes % (Manual) 6 % (1-10) Eosinophils % (Manual) 3 % (0-3) Basophils % (Manual) 0 % (0-2) Band Neutrophils 0 % (0-8) Platelet Estimate Adequate Platelet Morphology Normal Hypochromasia 4+ Anisocytosis 1+ Spherocytes 3+ D-Dimer 35.20 mg/L FEU (0.00-0.49) H Sodium Level 139 MMOL/L (136-145) Potassium Level 3.6 MMOL/L (3.5-5.1) Chloride Level 99 MMOL/L (98-107) Carbon Dioxide Level 21 MMOL/L (21-32) Anion Gap 20 mmol/L (5-15) H Blood Urea Nitrogen 91 mg/dL (7-18) H Creatinine 10.6 MG/DL (0.55-1.30) H Estimat Glomerular Filtration Rate 4.9 mL/min (>60) Glucose Level 214 MG/DL (74-106) H Uric Acid 9.8 MG/DL (2.6-7.2) H Calcium Level 8.7 MG/DL (8.5-10.1) Phosphorus Level 6.1 MG/DL (2.5-4.9) H Magnesium Level 2.4 MG/DL (1.8-2.4) Total Bilirubin 0.3 MG/DL (0.2-1.0) Gamma Glutamyl Transpeptidase 3 U/L (5-85) L Aspartate Amino Transf (AST/SGOT) 28 U/L (15-37) Alanine Aminotransferase (ALT/SGPT) 11 U/L (12-78) L Alkaline Phosphatase 78 U/L (46-116) Lactate Dehydrogenase 449 U/L (81-234) H C-Reactive Protein, Quantitative 17.8 mg/dL (0.00-0.90) H Pro-B-Type Natriuretic Peptide 5492 pg/mL (0-125) H Total Protein 8.2 G/DL (6.4-8.2) Albumin 2.2 G/DL (3.4-5.0) L Globulin 6.0 g/dL Albumin/Globulin Ratio 0.4 (1.0-2.7) L Current Medications Medications (Trade) Dose Ordered Sig/Anthony Route PRN Reason Start Time Stop Time Status Last Admin Dose Admin Acetaminophen (Tylenol) 650 mg Q6H PRN ORAL MILD PAIN/Temp >100.5 06/07/19 00:00 07/07/19 00:00 Albumin Human 250 ml @ 0 mls/hr Q0M PRN IV For hypotension 06/06/19 21:15 09/04/19 12:44 Albuterol Sulfate (Proventil MDI) 2 puff Q4HRT INH 06/06/19 23:00 08/30/19 18:59 06/09/19 05:46 Allopurinol (allopurinoL) 300 mg DAILY NG 06/08/19 09:30 07/08/19 09:29 06/09/19 08:10 Cefepime HCl 1 gm/ Dextrose 55 ml @ 110 mls/hr Q24H IVPB 06/07/19 13:00 06/13/19 12:59 06/08/19 13:41 Chlorhexidine Gluconate (Michelle-Hex 2%) 1 applic DAILY@2000 TOPIC 06/07/19 20:00 09/05/19 19:59 06/08/19 20:10 Docusate Sodium (Colace) 100 mg THREE TIMES A DAY NG 06/07/19 13:00 07/07/19 12:59 06/09/19 08:10 Enoxaparin Sodium (Lovenox) 30 mg DAILY SUBQ 06/07/19 09:00 08/27/19 08:59 06/09/19 08:11 Epoetin Aftab (Epoetin Aftab(ESRD on dialysis)) 10,000 unit SUBQ 06/07/19 21:00 08/31/19 20:59 06/07/19 21:32 Hydralazine HCl (Apresoline) 10 mg Q4H PRN IV Blood pressure over 160 systol 06/07/19 10:15 09/05/19 10:14 Norepinephrine Bitartrate 8 mg/ Dextrose 558 ml @ 0 mls/hr Q24H IV 06/07/19 09:00 07/07/19 08:59 06/09/19 05:56 Pantoprazole (Protonix) 40 mg Q12HR IVP 06/07/19 21:00 07/07/19 08:59 06/09/19 08:10 Salmeterol Xinafoate/ Fluticasone (Advair 100/50 Diskus) 1 puffs BID INH 06/07/19 09:00 08/27/19 08:59 06/09/19 08:10 Sevelamer Carbonate (Renvela) 1,600 mg THREE TIMES A DAY NG 06/07/19 13:00 09/05/19 12:59 06/09/19 08:10 Sodium Citrate (Bicitra) 30 ml Q8HR NG 06/07/19 14:00 06/28/19 11:59 06/09/19 05:46 Vancomycin HCl (Vanco rx to dose) 1 ea DAILY PRN MISC Per rx protocol 06/07/19 11:00 07/07/19 10:59 Ted Leyva MD Jun 09, 2019 11:46
--- NOTE | 2019-06-09 11:57 | Nephrology Progress Note ---
Assessment/Plan Problem List: (1) CASSANDRA (acute kidney injury) (2) Anemia in chronic kidney disease (CKD) (3) HTN (hypertension) (4) COVID-19 Assessment Acute renal failure most likely superimposed on chronic kidney disease Suspected COVID-19 virus infection Possible Pneumonia, lymphopenia, elevated AST Cardiomegaly, possible CHF COPD Hypertension Anemia, most likely related to chronic kidney disease Plan Positive for COVID 19 Patient received dialysis last evening June 05, next dialysis June 07 which was incomplete due to patient's hypotension Will order dialysis for June 09 Will start on midodrine for blood pressure support. Meanwhile continue other pressors as needed Patient is doing poorly, septic, white blood cells are rising, Hypotension somewhat improved We will keep n.p.o. , NG tube for medications, and change medication to IV as needed Patient remains full code Monitor vancomycin level Previously: Patient pulled out his femoral catheter yesterday June 03 which was reinserted by Dr. Mast Patient scheduled for dialysis again June 04, which again was not done due to dialysis nurse citing catheter malfunction Meanwhile continue management per ID, pulmonary , and psych. Meanwhile white blood cell count is rising. Patient blood pressure borderline low. Will check ABG Previously May 31 : I believe patient need dialysis treatment He however needs to competency assessment if can make decisions or not I will communicate with Dr. Mulligan Previously: Per pulmonary and ID advice Adjust blood pressure medication Renal diet Anemia work-up 2D echocardiogram refused Kidney ultrasound refused Jules catheter Urine studies Per orders Subjective ROS Limited/Unobtainable: Yes Objective Objective Last 24 Hour Vital Signs Date Time Temp Pulse Resp B/P (MAP) Pulse Ox O2 Delivery O2 Flow Rate FiO2 06/09/19 11:30 80 27 89/54 (66) 98 06/09/19 11:00 85 31 120/61 (80) 99 06/09/19 11:00 120/61 06/09/19 10:30 73 22 108/56 (73) 100 06/09/19 10:00 120/65 06/09/19 10:00 88 35 120/65 (83) 97 06/09/19 09:30 73 24 102/51 (68) 100 06/09/19 09:00 80 31 98/57 (71) 99 06/09/19 09:00 98/57 06/09/19 08:30 82 28 116/65 (82) 98 06/09/19 08:00 98.9 70 22 98/53 (68) 100 06/09/19 08:00 15.0 06/09/19 08:00 98/53 06/09/19 08:00 Non-Rebreather 15.0 06/09/19 07:30 72 22 103/52 (69) 100 06/09/19 07:00 91/50 06/09/19 07:00 72 21 95/55 (68) 100 06/09/19 06:30 79 24 101/60 (74) 100 06/09/19 06:00 78 24 111/61 (78) 100 06/09/19 06:00 108/68 06/09/19 05:56 108/68 06/09/19 05:45 80 26 108/68 (81) 100 06/09/19 05:30 72 22 115/59 (77) 100 06/09/19 05:15 71 19 101/61 (74) 100 06/09/19 05:00 71 23 113/62 (79) 100 06/09/19 05:00 101/61 06/09/19 04:45 70 20 99/59 (72) 100 06/09/19 04:30 77 25 109/60 (76) 100 06/09/19 04:15 72 17 109/53 (71) 100 06/09/19 04:00 15.0 06/09/19 04:00 82 06/09/19 04:00 109/53 06/09/19 04:00 Non-Rebreather 15.0 06/09/19 04:00 98.1 71 19 92/56 (68) 100 06/09/19 03:30 90 33 104/56 (72) 95 06/09/19 03:00 81 29 117/61 (79) 100 06/09/19 03:00 98/58 06/09/19 02:30 72 22 99/51 (67) 100 06/09/19 02:00 84 27 121/68 (85) 98 06/09/19 02:00 109/60 06/09/19 01:30 77 23 122/58 (79) 100 06/09/19 01:00 71 22 105/56 (72) 100 06/09/19 01:00 102/55 4/29/20 00:30 81 31 112/63 (79) 93 06/09/19 00:00 Non-Rebreather 15.0 06/09/19 00:00 15.0 06/09/19 00:00 103/55 06/09/19 00:00 75 06/09/19 00:00 98.0 77 25 105/60 (75) 99 06/08/19 23:45 81 30 115/64 (81) 97 06/08/19 23:30 73 25 95/58 (70) 100 06/08/19 23:15 78 26 109/61 (77) 100 06/08/19 23:00 74 23 103/62 (76) 100 06/08/19 23:00 109/61 06/08/19 22:45 73 23 99/58 (72) 100 06/08/19 22:30 78 25 107/60 (76) 100 06/08/19 22:15 76 24 106/66 (79) 98 06/08/19 22:00 79 29 97/58 (71) 98 06/08/19 22:00 106/66 06/08/19 21:45 81 28 115/62 (79) 98 06/08/19 21:30 83 32 120/63 (82) 99 06/08/19 21:15 76 23 94/59 (71) 98 06/08/19 21:00 83 27 111/63 (79) 98 06/08/19 21:00 94/59 06/08/19 20:45 83 33 120/69 (86) 98 06/08/19 20:43 99 Non-Rebreather 15.0 100 06/08/19 20:30 84 32 114/71 (85) 98 06/08/19 20:15 75 27 117/62 (80) 100 06/08/19 20:00 66 06/08/19 20:00 15.0 06/08/19 20:00 98.3 75 28 108/59 (75) 100 06/08/19 20:00 Non-Rebreather 15.0 06/08/19 20:00 117/62 06/08/19 19:45 72 25 99/58 (72) 100 06/08/19 19:30 83 31 118/66 (83) 100 06/08/19 19:00 72 24 116/55 (75) 100 06/08/19 19:00 116/55 06/08/19 18:30 81 31 120/58 (78) 99 06/08/19 18:00 71 24 124/59 (80) 100 06/08/19 18:00 124/59 06/08/19 17:30 72 26 126/73 (90) 99 06/08/19 17:00 72 28 113/56 (75) 99 06/08/19 17:00 125/69 06/08/19 16:30 74 28 95/54 (68) 97 06/08/19 16:15 88 32 125/69 (87) 96 06/08/19 16:02 132/60 06/08/19 16:00 15.0 06/08/19 16:00 125/69 06/08/19 16:00 Non-Rebreather 15.0 06/08/19 16:00 98.2 72 24 106/44 (64) 100 06/08/19 16:00 66 06/08/19 15:45 76 24 132/60 (84) 100 06/08/19 15:30 73 25 111/62 (78) 100 06/08/19 15:00 85 26 92/62 (72) 98 06/08/19 15:00 93/61 06/08/19 14:30 97 46 104/49 (67) 87 06/08/19 14:00 99/55 06/08/19 14:00 68 23 118/60 (79) 100 06/08/19 13:30 74 22 116/62 (80) 100 06/08/19 13:00 69 23 113/59 (77) 100 06/08/19 13:00 118/62 06/08/19 12:30 80 28 133/80 (97) 100 06/08/19 12:15 75 24 126/59 (81) 100 06/08/19 12:00 Non-Rebreather 15.0 06/08/19 12:00 98.5 68 23 108/66 (80) 100 06/08/19 12:00 108/66 06/08/19 12:00 15.0 06/08/19 12:00 68 Intake and Output 06/08/19 06/09/19 19:00 07:00 Intake Total 565.57 ml 445.02 ml Output Total 1 ml 0 ml Balance 564.57 ml 445.02 ml IV Total 565.57 ml 385.02 ml Other 60 ml Output Urine Total 0 ml 0 ml Stool Total 1 ml # Bowel Movements 1 Current Medications Medications (Trade) Dose Ordered Sig/Anthony Route PRN Reason Start Time Stop Time Status Last Admin Dose Admin Acetaminophen (Tylenol) 650 mg Q6H PRN ORAL MILD PAIN/Temp >100.5 06/07/19 00:00 07/07/19 00:00 Albumin Human 250 ml @ 0 mls/hr Q0M PRN IV For hypotension 06/06/19 21:15 09/04/19 12:44 Albuterol Sulfate (Proventil MDI) 2 puff Q4HRT INH 06/06/19 23:00 08/30/19 18:59 06/09/19 05:46 Allopurinol (allopurinoL) 300 mg DAILY NG 06/08/19 09:30 07/08/19 09:29 06/09/19 08:10 Cefepime HCl 1 gm/ Dextrose 55 ml @ 110 mls/hr Q24H IVPB 06/07/19 13:00 06/13/19 12:59 06/08/19 13:41 Chlorhexidine Gluconate (Michelle-Hex 2%) 1 applic DAILY@2000 TOPIC 06/07/19 20:00 09/05/19 19:59 06/08/19 20:10 Docusate Sodium (Colace) 100 mg THREE TIMES A DAY NG 06/07/19 13:00 07/07/19 12:59 06/09/19 08:10 Enoxaparin Sodium (Lovenox) 30 mg DAILY SUBQ 06/07/19 09:00 08/27/19 08:59 06/09/19 08:11 Epoetin Aftab (Epoetin Aftab(ESRD on dialysis)) 10,000 unit FRI-FRI-FRI SUBQ 06/07/19 21:00 08/31/19 20:59 06/07/19 21:32 Hydralazine HCl (Apresoline) 10 mg Q4H PRN IV Blood pressure over 160 systol 06/07/19 10:15 09/05/19 10:14 Norepinephrine Bitartrate 8 mg/ Dextrose 558 ml @ 0 mls/hr Q24H IV 06/07/19 09:00 07/07/19 08:59 06/09/19 05:56 Pantoprazole (Protonix) 40 mg Q12HR IVP 06/07/19 21:00 07/07/19 08:59 06/09/19 08:10 Salmeterol Xinafoate/ Fluticasone (Advair 100/50 Diskus) 1 puffs BID INH 06/07/19 09:00 08/27/19 08:59 06/09/19 08:10 Sevelamer Carbonate (Renvela) 1,600 mg THREE TIMES A DAY NG 06/07/19 13:00 09/05/19 12:59 06/09/19 08:10 Sodium Citrate (Bicitra) 30 ml Q8HR NG 06/07/19 14:00 06/28/19 11:59 06/09/19 05:46 Vancomycin HCl (Vanco rx to dose) 1 ea DAILY PRN MISC Per rx protocol 06/07/19 11:00 07/07/19 10:59 Laboratory Tests 06/08/19 19:20: Random Vancomycin Level 10.6 06/09/19 04:20: White Blood Count 21.4H, Red Blood Count 2.21L, Hemoglobin 6.8*L, Hematocrit 19.9L, Mean Corpuscular Volume 90, Mean Corpuscular Hemoglobin 30.8, Mean Corpuscular Hemoglobin Concent 34.3, Red Cell Distribution Width 13.9, Platelet Count 199, Mean Platelet Volume 6.5, Neutrophils (%) (Auto) , Lymphocytes (%) ( Auto) , Monocytes (%) (Auto) , Eosinophils (%) (Auto) , Basophils (%) (Auto) , Differential Total Cells Counted 100, Neutrophils % (Manual) 88H, Lymphocytes % (Manual) 3L, Monocytes % (Manual) 6, Eosinophils % (Manual) 3, Basophils % ( Manual) 0, Band Neutrophils 0, Platelet Estimate Adequate, Platelet Morphology Normal, Hypochromasia 4+, Anisocytosis 1+, Spherocytes 3+, D-Dimer 35.20H, Sodium Level 139, Potassium Level 3.6, Chloride Level 99, Carbon Dioxide Level 21, Anion Gap 20H, Blood Urea Nitrogen 91H, Creatinine 10.6H, Estimat Glomerular Filtration Rate 4.9, Glucose Level 214H, Uric Acid 9.8H, Calcium Level 8.7, Phosphorus Level 6.1H, Magnesium Level 2.4, Total Bilirubin 0.3, Gamma Glutamyl Transpeptidase 3L, Aspartate Amino Transf (AST/SGOT) 28, Alanine Aminotransferase (ALT/SGPT) 11L, Alkaline Phosphatase 78, Lactate Dehydrogenase 449H, C-Reactive Protein, Quantitative 17.8H, Pro-B-Type Natriuretic Peptide 5492H, Total Protein 8.2, Albumin 2.2L, Globulin 6.0, Albumin/Globulin Ratio 0.4L Height (Feet): 6 Height (Inches): 1.00 Weight (Pounds): 178 General Appearance: no apparent distress, lethargic EENT: other - On non rebreather mask Cardiovascular: other - Rate 85 Respiratory/Chest: decreased breath sounds Abdomen: distended, other - NG tube in place Objective No change Mic Cole MD Jun 09, 2019 11:57
--- NOTE | 2019-06-09 12:22 | Cardiac Electrophysiology PN ---
Assessment/Plan Assessment/Plan 1. Elevated troponin. Troponin on May 27 and May 30 were negative; however, on June 01, it was elevated at 0.074. Repeat 0.05. No chest pain. Due to renal failure. On Aspirin. QT 493. Plaquenil DCed. Echo still pending 2. Septic shock. On Levophed 6 Mcg. 3. End-stage renal disease, on hemodialysis.On dialysis per Dr. Cole. 4. COVID-19 positive pneumonia and lymphopenia. Fu by Dr. Ted Leyva and Dr. Mckeon. 5. MRSA carrier. 6. COPD. 7. Anemia. 8. Depression. JHONY RN Subjective Subjective Still in Covid isolation. On 15 liter NRB face mask and 6 Mc Levophed In SR. Getting 2 units of PRBC today and HD tomorrow Objective Last 24 Hour Vital Signs Date Time Temp Pulse Resp B/P (MAP) Pulse Ox O2 Delivery O2 Flow Rate FiO2 06/09/19 12:00 15.0 06/09/19 11:30 80 27 89/54 (66) 98 06/09/19 11:00 85 31 120/61 (80) 99 06/09/19 11:00 120/61 06/09/19 10:30 73 22 108/56 (73) 100 06/09/19 10:00 120/65 06/09/19 10:00 88 35 120/65 (83) 97 06/09/19 09:30 73 24 102/51 (68) 100 06/09/19 09:00 80 31 98/57 (71) 99 06/09/19 09:00 98/57 06/09/19 08:30 82 28 116/65 (82) 98 06/09/19 08:00 98.9 70 22 98/53 (68) 100 06/09/19 08:00 15.0 06/09/19 08:00 98/53 06/09/19 08:00 Non-Rebreather 15.0 06/09/19 07:30 72 22 103/52 (69) 100 06/09/19 07:00 91/50 06/09/19 07:00 72 21 95/55 (68) 100 06/09/19 06:30 79 24 101/60 (74) 100 06/09/19 06:00 78 24 111/61 (78) 100 06/09/19 06:00 108/68 06/09/19 05:56 108/68 06/09/19 05:45 80 26 108/68 (81) 100 06/09/19 05:30 72 22 115/59 (77) 100 06/09/19 05:15 71 19 101/61 (74) 100 06/09/19 05:00 71 23 113/62 (79) 100 06/09/19 05:00 101/61 06/09/19 04:45 70 20 99/59 (72) 100 06/09/19 04:30 77 25 109/60 (76) 100 06/09/19 04:15 72 17 109/53 (71) 100 06/09/19 04:00 15.0 06/09/19 04:00 82 06/09/19 04:00 109/53 06/09/19 04:00 Non-Rebreather 15.0 06/09/19 04:00 98.1 71 19 92/56 (68) 100 06/09/19 03:30 90 33 104/56 (72) 95 06/09/19 03:00 81 29 117/61 (79) 100 06/09/19 03:00 98/58 06/09/19 02:30 72 22 99/51 (67) 100 06/09/19 02:00 84 27 121/68 (85) 98 06/09/19 02:00 109/60 06/09/19 01:30 77 23 122/58 (79) 100 06/09/19 01:00 71 22 105/56 (72) 100 06/09/19 01:00 102/55 06/09/19 00:30 81 31 112/63 (79) 93 06/09/19 00:00 Non-Rebreather 15.0 06/09/19 00:00 15.0 06/09/19 00:00 103/55 06/09/19 00:00 75 06/09/19 00:00 98.0 77 25 105/60 (75) 99 06/08/19 23:45 81 30 115/64 (81) 97 06/08/19 23:30 73 25 95/58 (70) 100 06/08/19 23:15 78 26 109/61 (77) 100 06/08/19 23:00 74 23 103/62 (76) 100 06/08/19 23:00 109/61 06/08/19 22:45 73 23 99/58 (72) 100 06/08/19 22:30 78 25 107/60 (76) 100 06/08/19 22:15 76 24 106/66 (79) 98 06/08/19 22:00 79 29 97/58 (71) 98 06/08/19 22:00 106/66 06/08/19 21:45 81 28 115/62 (79) 98 06/08/19 21:30 83 32 120/63 (82) 99 06/08/19 21:15 76 23 94/59 (71) 98 06/08/19 21:00 83 27 111/63 (79) 98 06/08/19 21:00 94/59 06/08/19 20:45 83 33 120/69 (86) 98 06/08/19 20:43 99 Non-Rebreather 15.0 100 06/08/19 20:30 84 32 114/71 (85) 98 06/08/19 20:15 75 27 117/62 (80) 100 06/08/19 20:00 66 06/08/19 20:00 15.0 06/08/19 20:00 98.3 75 28 108/59 (75) 100 06/08/19 20:00 Non-Rebreather 15.0 06/08/19 20:00 117/62 06/08/19 19:45 72 25 99/58 (72) 100 06/08/19 19:30 83 31 118/66 (83) 100 06/08/19 19:00 72 24 116/55 (75) 100 06/08/19 19:00 116/55 06/08/19 18:30 81 31 120/58 (78) 99 06/08/19 18:00 71 24 124/59 (80) 100 06/08/19 18:00 124/59 06/08/19 17:30 72 26 126/73 (90) 99 06/08/19 17:00 72 28 113/56 (75) 99 06/08/19 17:00 125/69 06/08/19 16:30 74 28 95/54 (68) 97 06/08/19 16:15 88 32 125/69 (87) 96 06/08/19 16:02 132/60 06/08/19 16:00 15.0 06/08/19 16:00 125/69 06/08/19 16:00 Non-Rebreather 15.0 06/08/19 16:00 98.2 72 24 106/44 (64) 100 06/08/19 16:00 66 06/08/19 15:45 76 24 132/60 (84) 100 06/08/19 15:30 73 25 111/62 (78) 100 06/08/19 15:00 85 26 92/62 (72) 98 06/08/19 15:00 93/61 06/08/19 14:30 97 46 104/49 (67) 87 06/08/19 14:00 99/55 06/08/19 14:00 68 23 118/60 (79) 100 06/08/19 13:30 74 22 116/62 (80) 100 06/08/19 13:00 69 23 113/59 (77) 100 06/08/19 13:00 118/62 06/08/19 12:30 80 28 133/80 (97) 100 Intake and Output 06/08/19 06/09/19 19:00 07:00 Intake Total 565.57 ml 445.02 ml Output Total 1 ml 0 ml Balance 564.57 ml 445.02 ml IV Total 565.57 ml 385.02 ml Other 60 ml Output Urine Total 0 ml 0 ml Stool Total 1 ml # Bowel Movements 1 Laboratory Tests Test 06/08/19 19:20 06/09/19 04:20 Random Vancomycin Level 10.6 ug/mL White Blood Count 21.4 K/UL (4.8-10.8) H Red Blood Count 2.21 M/UL (4.70-6.10) L Hemoglobin 6.8 G/DL (14.2-18.0) *L Hematocrit 19.9 % (42.0-52.0) L Mean Corpuscular Volume 90 FL (80-99) Mean Corpuscular Hemoglobin 30.8 PG (27.0-31.0) Mean Corpuscular Hemoglobin Concent 34.3 G/DL (32.0-36.0) Red Cell Distribution Width 13.9 % (11.6-14.8) Platelet Count 199 K/UL (150-450) Mean Platelet Volume 6.5 FL (6.5-10.1) Neutrophils (%) (Auto) % (45.0-75.0) Lymphocytes (%) (Auto) % (20.0-45.0) Monocytes (%) (Auto) % (1.0-10.0) Eosinophils (%) (Auto) % (0.0-3.0) Basophils (%) (Auto) % (0.0-2.0) Differential Total Cells Counted 100 Neutrophils % (Manual) 88 % (45-75) H Lymphocytes % (Manual) 3 % (20-45) L Monocytes % (Manual) 6 % (1-10) Eosinophils % (Manual) 3 % (0-3) Basophils % (Manual) 0 % (0-2) Band Neutrophils 0 % (0-8) Platelet Estimate Adequate Platelet Morphology Normal Hypochromasia 4+ Anisocytosis 1+ Spherocytes 3+ D-Dimer 35.20 mg/L FEU (0.00-0.49) H Sodium Level 139 MMOL/L (136-145) Potassium Level 3.6 MMOL/L (3.5-5.1) Chloride Level 99 MMOL/L (98-107) Carbon Dioxide Level 21 MMOL/L (21-32) Anion Gap 20 mmol/L (5-15) H Blood Urea Nitrogen 91 mg/dL (7-18) H Creatinine 10.6 MG/DL (0.55-1.30) H Estimat Glomerular Filtration Rate 4.9 mL/min (>60) Glucose Level 214 MG/DL (74-106) H Uric Acid 9.8 MG/DL (2.6-7.2) H Calcium Level 8.7 MG/DL (8.5-10.1) Phosphorus Level 6.1 MG/DL (2.5-4.9) H Magnesium Level 2.4 MG/DL (1.8-2.4) Total Bilirubin 0.3 MG/DL (0.2-1.0) Gamma Glutamyl Transpeptidase 3 U/L (5-85) L Aspartate Amino Transf (AST/SGOT) 28 U/L (15-37) Alanine Aminotransferase (ALT/SGPT) 11 U/L (12-78) L Alkaline Phosphatase 78 U/L (46-116) Lactate Dehydrogenase 449 U/L (81-234) H C-Reactive Protein, Quantitative 17.8 mg/dL (0.00-0.90) H Pro-B-Type Natriuretic Peptide 5492 pg/mL (0-125) H Total Protein 8.2 G/DL (6.4-8.2) Albumin 2.2 G/DL (3.4-5.0) L Globulin 6.0 g/dL Albumin/Globulin Ratio 0.4 (1.0-2.7) L Microbiology Date/Time Source Procedure Growth Status 06/07/19 12:30 Sputum Gram Stain - Final Complete 06/07/19 12:30 Sputum Sputum Culture - Final NORMAL UPPER RESPIRATORY WALDEMAR PRESENT Complete 06/06/19 18:25 Nasopharynx Coronavirus COVID-19 PCR ([facility]) - Final Complete Objective HEAD AND NECK: No JVD. LUNGS: Decreased breath sounds. CARDIOVASCULAR: Shows regular S1 and S2. Tachycardic. ABDOMEN: Soft. EXTREMITIES: No pitting edema. New Left FV Gio Engle MD Jun 09, 2019 12:22
[2019-06-09] MEDS: Midodrine 10mg tab NG SCH ×2 (13:07→18:48)
[2019-06-09] MEDS: Cefepime HCl 1 GM in D5W 55 ML IVPB SCH (13:07)
--- NOTE | 2019-06-09 15:52 | Surgery Progress Note ---
Surgery Progress Note Subjective Procedure Performed left femoral temporary HD catheter placement Additional Comments anemia leukocytosis slightly improved ill appearing labs reviewed Objective Last 24 Hour Vital Signs Date Time Temp Pulse Resp B/P (MAP) Pulse Ox O2 Delivery O2 Flow Rate FiO2 06/09/19 15:00 74 23 109/52 (71) 100 06/09/19 15:00 109/52 06/09/19 14:30 87 28 114/61 (78) 96 06/09/19 14:00 109/55 06/09/19 14:00 76 23 109/55 (73) 100 06/09/19 13:30 86 35 128/67 (87) 97 06/09/19 13:00 105/67 06/09/19 13:00 73 25 105/67 (80) 100 06/09/19 12:30 81 31 115/65 (82) 99 06/09/19 12:00 97.8 74 25 91/55 (67) 100 06/09/19 12:00 Non-Rebreather 15.0 06/09/19 12:00 79 06/09/19 12:00 110/58 06/09/19 12:00 15.0 06/09/19 11:30 80 27 89/54 (66) 98 06/09/19 11:00 85 31 120/61 (80) 99 06/09/19 11:00 120/61 06/09/19 10:30 73 22 108/56 (73) 100 06/09/19 10:00 120/65 06/09/19 10:00 88 35 120/65 (83) 97 06/09/19 09:30 73 24 102/51 (68) 100 06/09/19 09:00 80 31 98/57 (71) 99 06/09/19 09:00 98/57 06/09/19 08:30 82 28 116/65 (82) 98 06/09/19 08:00 98.9 70 22 98/53 (68) 100 06/09/19 08:00 15.0 06/09/19 08:00 98/53 06/09/19 08:00 Non-Rebreather 15.0 06/09/19 07:49 73 06/09/19 07:30 72 22 103/52 (69) 100 06/09/19 07:00 91/50 06/09/19 07:00 72 21 95/55 (68) 100 06/09/19 06:30 79 24 101/60 (74) 100 06/09/19 06:00 78 24 111/61 (78) 100 06/09/19 06:00 108/68 06/09/19 05:56 108/68 06/09/19 05:45 80 26 108/68 (81) 100 06/09/19 05:30 72 22 115/59 (77) 100 06/09/19 05:15 71 19 101/61 (74) 100 06/09/19 05:00 71 23 113/62 (79) 100 06/09/19 05:00 101/61 06/09/19 04:45 70 20 99/59 (72) 100 06/09/19 04:30 77 25 109/60 (76) 100 06/09/19 04:15 72 17 109/53 (71) 100 06/09/19 04:00 15.0 06/09/19 04:00 82 06/09/19 04:00 109/53 06/09/19 04:00 Non-Rebreather 15.0 06/09/19 04:00 98.1 71 19 92/56 (68) 100 06/09/19 03:30 90 33 104/56 (72) 95 06/09/19 03:00 81 29 117/61 (79) 100 06/09/19 03:00 98/58 06/09/19 02:30 72 22 99/51 (67) 100 06/09/19 02:00 84 27 121/68 (85) 98 06/09/19 02:00 109/60 06/09/19 01:30 77 23 122/58 (79) 100 06/09/19 01:00 71 22 105/56 (72) 100 06/09/19 01:00 102/55 06/09/19 00:30 81 31 112/63 (79) 93 06/09/19 00:00 Non-Rebreather 15.0 06/09/19 00:00 15.0 06/09/19 00:00 103/55 06/09/19 00:00 75 06/09/19 00:00 98.0 77 25 105/60 (75) 99 06/08/19 23:45 81 30 115/64 (81) 97 06/08/19 23:30 73 25 95/58 (70) 100 06/08/19 23:15 78 26 109/61 (77) 100 06/08/19 23:00 74 23 103/62 (76) 100 06/08/19 23:00 109/61 06/08/19 22:45 73 23 99/58 (72) 100 06/08/19 22:30 78 25 107/60 (76) 100 06/08/19 22:15 76 24 106/66 (79) 98 06/08/19 22:00 79 29 97/58 (71) 98 06/08/19 22:00 106/66 06/08/19 21:45 81 28 115/62 (79) 98 06/08/19 21:30 83 32 120/63 (82) 99 06/08/19 21:15 76 23 94/59 (71) 98 06/08/19 21:00 83 27 111/63 (79) 98 06/08/19 21:00 94/59 06/08/19 20:45 83 33 120/69 (86) 98 06/08/19 20:43 99 Non-Rebreather 15.0 100 06/08/19 20:30 84 32 114/71 (85) 98 06/08/19 20:15 75 27 117/62 (80) 100 06/08/19 20:00 66 06/08/19 20:00 15.0 06/08/19 20:00 98.3 75 28 108/59 (75) 100 06/08/19 20:00 Non-Rebreather 15.0 06/08/19 20:00 117/62 06/08/19 19:45 72 25 99/58 (72) 100 06/08/19 19:30 83 31 118/66 (83) 100 06/08/19 19:00 72 24 116/55 (75) 100 06/08/19 19:00 116/55 06/08/19 18:30 81 31 120/58 (78) 99 06/08/19 18:00 71 24 124/59 (80) 100 06/08/19 18:00 124/59 06/08/19 17:30 72 26 126/73 (90) 99 06/08/19 17:00 72 28 113/56 (75) 99 06/08/19 17:00 125/69 06/08/19 16:30 74 28 95/54 (68) 97 06/08/19 16:15 88 32 125/69 (87) 96 06/08/19 16:02 132/60 06/08/19 16:00 15.0 06/08/19 16:00 125/69 06/08/19 16:00 Non-Rebreather 15.0 06/08/19 16:00 98.2 72 24 106/44 (64) 100 06/08/19 16:00 66 I&O Intake and Output 06/08/19 06/09/19 19:00 07:00 Intake Total 565.57 ml 445.02 ml Output Total 1 ml 0 ml Balance 564.57 ml 445.02 ml IV Total 565.57 ml 385.02 ml Other 60 ml Output Urine Total 0 ml 0 ml Stool Total 1 ml # Bowel Movements 1 Dressing: other Wound: other Drains: other Cardiovascular: RSR Respiratory: decreased breath sounds Abdomen: soft, non-tender, present bowel sounds Extremities: no cyanosis Laboratory Tests Test 06/08/19 19:20 06/09/19 04:20 Random Vancomycin Level 10.6 ug/mL White Blood Count 21.4 K/UL (4.8-10.8) H Red Blood Count 2.21 M/UL (4.70-6.10) L Hemoglobin 6.8 G/DL (14.2-18.0) *L Hematocrit 19.9 % (42.0-52.0) L Mean Corpuscular Volume 90 FL (80-99) Mean Corpuscular Hemoglobin 30.8 PG (27.0-31.0) Mean Corpuscular Hemoglobin Concent 34.3 G/DL (32.0-36.0) Red Cell Distribution Width 13.9 % (11.6-14.8) Platelet Count 199 K/UL (150-450) Mean Platelet Volume 6.5 FL (6.5-10.1) Neutrophils (%) (Auto) % (45.0-75.0) Lymphocytes (%) (Auto) % (20.0-45.0) Monocytes (%) (Auto) % (1.0-10.0) Eosinophils (%) (Auto) % (0.0-3.0) Basophils (%) (Auto) % (0.0-2.0) Differential Total Cells Counted 100 Neutrophils % (Manual) 88 % (45-75) H Lymphocytes % (Manual) 3 % (20-45) L Monocytes % (Manual) 6 % (1-10) Eosinophils % (Manual) 3 % (0-3) Basophils % (Manual) 0 % (0-2) Band Neutrophils 0 % (0-8) Platelet Estimate Adequate Platelet Morphology Normal Hypochromasia 4+ Anisocytosis 1+ Spherocytes 3+ D-Dimer 35.20 mg/L FEU (0.00-0.49) H Sodium Level 139 MMOL/L (136-145) Potassium Level 3.6 MMOL/L (3.5-5.1) Chloride Level 99 MMOL/L (98-107) Carbon Dioxide Level 21 MMOL/L (21-32) Anion Gap 20 mmol/L (5-15) H Blood Urea Nitrogen 91 mg/dL (7-18) H Creatinine 10.6 MG/DL (0.55-1.30) H Estimat Glomerular Filtration Rate 4.9 mL/min (>60) Glucose Level 214 MG/DL (74-106) H Uric Acid 9.8 MG/DL (2.6-7.2) H Calcium Level 8.7 MG/DL (8.5-10.1) Phosphorus Level 6.1 MG/DL (2.5-4.9) H Magnesium Level 2.4 MG/DL (1.8-2.4) Total Bilirubin 0.3 MG/DL (0.2-1.0) Gamma Glutamyl Transpeptidase 3 U/L (5-85) L Aspartate Amino Transf (AST/SGOT) 28 U/L (15-37) Alanine Aminotransferase (ALT/SGPT) 11 U/L (12-78) L Alkaline Phosphatase 78 U/L (46-116) Lactate Dehydrogenase 449 U/L (81-234) H C-Reactive Protein, Quantitative 17.8 mg/dL (0.00-0.90) H Pro-B-Type Natriuretic Peptide 5492 pg/mL (0-125) H Total Protein 8.2 G/DL (6.4-8.2) Albumin 2.2 G/DL (3.4-5.0) L Globulin 6.0 g/dL Albumin/Globulin Ratio 0.4 (1.0-2.7) L Plan Problems: (1) Suspected COVID-19 virus infection (2) HTN (hypertension) (3) CASSANDRA (acute kidney injury) Assessment & Plan: Needs urgent HD needs access patient okay and consented see note will follow with recs new line placed discussed with team and nephrology HD line functional when checked has TPA now please use appropriately (4) Anemia in chronic kidney disease (CKD) (5) Anemia (6) Renal failure (7) Suspected COVID-19 virus infection (8) COVID-19 Assessment & Plan: COVID + c diff negative febrile leukocytosis renal insufficiency see above cont resp care Rx as per Yaniv Clarke Jun 09, 2019 15:52
[2019-06-09] MEDS: Epoetin Alfa-EPBX(ESRD on dialysis)10,000 unit/ml vial SUBQ SCH (20:45)
[2019-06-09] MEDS: Dyna-Hex 2% Top Sol 2oz TOPIC SCH (20:45)
--- NOTE | 2019-06-09 21:39 | General Progress Note ---
Assessment/Plan Problem List: (1) Anemia ICD Codes: D64.9 - Anemia, unspecified SNOMED: 285059767 (2) Renal failure ICD Codes: N19 - Unspecified kidney failure SNOMED: 25926662 (3) Suspected COVID-19 virus infection ICD Codes: R68.89 - Other general symptoms and signs SNOMED: 779292958 (4) HTN (hypertension) ICD Codes: I10 - Essential (primary) hypertension SNOMED: 10502945 (5) CASSANDRA (acute kidney injury) ICD Codes: N17.9 - Acute kidney failure, unspecified SNOMED: 4615626, 11568914 (6) Anemia in chronic kidney disease (CKD) ICD Codes: N18.9 - Chronic kidney disease, unspecified; D63.1 - Anemia in chronic kidney disease SNOMED: 165139139 (7) Suspected COVID-19 virus infection ICD Codes: R68.89 - Other general symptoms and signs SNOMED: 441809971 Status: progressing Assessment/Plan: worsening renal failure requiring diaylsis cxr worsening s/p pressor pna covid positve anemia s/p fluid overload worsening leukocytosis sepsis anemia is not improving getting worse Subjective Allergies: Coded Allergies: No Known Allergies (Unverified , 05/28/19) Objective Last 24 Hour Vital Signs Date Time Temp Pulse Resp B/P (MAP) Pulse Ox O2 Delivery O2 Flow Rate FiO2 06/09/19 19:00 86 28 132/72 (92) 95 06/09/19 19:00 132/72 06/09/19 18:30 73 19 105/64 (78) 100 06/09/19 18:00 77 24 125/63 (83) 100 06/09/19 18:00 125/63 06/09/19 17:30 78 22 125/63 (83) 98 06/09/19 17:00 78 23 120/64 (82) 99 06/09/19 17:00 120/64 06/09/19 16:30 73 17 144/70 (94) 100 06/09/19 16:00 115/63 06/09/19 16:00 78 06/09/19 16:00 15.0 06/09/19 16:00 Non-Rebreather 15.0 06/09/19 16:00 97.4 76 20 115/63 (80) 100 06/09/19 15:30 71 18 113/59 (77) 100 06/09/19 15:00 74 23 109/52 (71) 100 06/09/19 15:00 109/52 06/09/19 14:30 87 28 114/61 (78) 96 06/09/19 14:00 109/55 06/09/19 14:00 76 23 109/55 (73) 100 06/09/19 13:30 86 35 128/67 (87) 97 06/09/19 13:00 105/67 06/09/19 13:00 73 25 105/67 (80) 100 06/09/19 12:30 81 31 115/65 (82) 99 06/09/19 12:00 97.8 74 25 91/55 (67) 100 06/09/19 12:00 Non-Rebreather 15.0 06/09/19 12:00 79 06/09/19 12:00 110/58 06/09/19 12:00 15.0 06/09/19 11:30 80 27 89/54 (66) 98 06/09/19 11:00 85 31 120/61 (80) 99 06/09/19 11:00 120/61 06/09/19 10:30 73 22 108/56 (73) 100 06/09/19 10:00 120/65 06/09/19 10:00 88 35 120/65 (83) 97 06/09/19 09:30 73 24 102/51 (68) 100 06/09/19 09:00 80 31 98/57 (71) 99 06/09/19 09:00 98/57 06/09/19 08:30 82 28 116/65 (82) 98 06/09/19 08:00 98.9 70 22 98/53 (68) 100 06/09/19 08:00 15.0 06/09/19 08:00 98/53 06/09/19 08:00 Non-Rebreather 15.0 06/09/19 07:49 73 06/09/19 07:30 72 22 103/52 (69) 100 06/09/19 07:00 91/50 06/09/19 07:00 72 21 95/55 (68) 100 06/09/19 06:30 79 24 101/60 (74) 100 06/09/19 06:00 78 24 111/61 (78) 100 06/09/19 06:00 108/68 06/09/19 05:56 108/68 06/09/19 05:45 80 26 108/68 (81) 100 06/09/19 05:30 72 22 115/59 (77) 100 06/09/19 05:15 71 19 101/61 (74) 100 06/09/19 05:00 71 23 113/62 (79) 100 06/09/19 05:00 101/61 06/09/19 04:45 70 20 99/59 (72) 100 06/09/19 04:30 77 25 109/60 (76) 100 06/09/19 04:15 72 17 109/53 (71) 100 06/09/19 04:00 15.0 06/09/19 04:00 82 06/09/19 04:00 109/53 06/09/19 04:00 Non-Rebreather 15.0 06/09/19 04:00 98.1 71 19 92/56 (68) 100 06/09/19 03:30 90 33 104/56 (72) 95 06/09/19 03:00 81 29 117/61 (79) 100 06/09/19 03:00 98/58 06/09/19 02:30 72 22 99/51 (67) 100 06/09/19 02:00 84 27 121/68 (85) 98 06/09/19 02:00 109/60 06/09/19 01:30 77 23 122/58 (79) 100 06/09/19 01:00 71 22 105/56 (72) 100 06/09/19 01:00 102/55 06/09/19 00:30 81 31 112/63 (79) 93 06/09/19 00:00 Non-Rebreather 15.0 06/09/19 00:00 15.0 06/09/19 00:00 103/55 06/09/19 00:00 75 06/09/19 00:00 98.0 77 25 105/60 (75) 99 06/08/19 23:45 81 30 115/64 (81) 97 06/08/19 23:30 73 25 95/58 (70) 100 06/08/19 23:15 78 26 109/61 (77) 100 06/08/19 23:00 74 23 103/62 (76) 100 06/08/19 23:00 109/61 06/08/19 22:45 73 23 99/58 (72) 100 06/08/19 22:30 78 25 107/60 (76) 100 06/08/19 22:15 76 24 106/66 (79) 98 06/08/19 22:00 79 29 97/58 (71) 98 06/08/19 22:00 106/66 06/08/19 21:45 81 28 115/62 (79) 98 Intake and Output 06/08/19 06/09/19 19:00 07:00 Intake Total 565.57 ml 445.02 ml Output Total 1 ml 0 ml Balance 564.57 ml 445.02 ml IV Total 565.57 ml 385.02 ml Other 60 ml Output Urine Total 0 ml 0 ml Stool Total 1 ml # Bowel Movements 1 Laboratory Tests 06/09/19 04:20: White Blood Count 21.4H, Red Blood Count 2.21L, Hemoglobin 6.8*L, Hematocrit 19.9L, Mean Corpuscular Volume 90, Mean Corpuscular Hemoglobin 30.8, Mean Corpuscular Hemoglobin Concent 34.3, Red Cell Distribution Width 13.9, Platelet Count 199, Mean Platelet Volume 6.5, Neutrophils (%) (Auto) , Lymphocytes (%) ( Auto) , Monocytes (%) (Auto) , Eosinophils (%) (Auto) , Basophils (%) (Auto) , Differential Total Cells Counted 100, Neutrophils % (Manual) 88H, Lymphocytes % (Manual) 3L, Monocytes % (Manual) 6, Eosinophils % (Manual) 3, Basophils % ( Manual) 0, Band Neutrophils 0, Platelet Estimate Adequate, Platelet Morphology Normal, Hypochromasia 4+, Anisocytosis 1+, Spherocytes 3+, D-Dimer 35.20H, Sodium Level 139, Potassium Level 3.6, Chloride Level 99, Carbon Dioxide Level 21, Anion Gap 20H, Blood Urea Nitrogen 91H, Creatinine 10.6H, Estimat Glomerular Filtration Rate 4.9, Glucose Level 214H, Uric Acid 9.8H, Calcium Level 8.7, Phosphorus Level 6.1H, Magnesium Level 2.4, Total Bilirubin 0.3, Gamma Glutamyl Transpeptidase 3L, Aspartate Amino Transf (AST/SGOT) 28, Alanine Aminotransferase (ALT/SGPT) 11L, Alkaline Phosphatase 78, Lactate Dehydrogenase 449H, C-Reactive Protein, Quantitative 17.8H, Pro-B-Type Natriuretic Peptide 5492H, Total Protein 8.2, Albumin 2.2L, Globulin 6.0, Albumin/Globulin Ratio 0.4L Height (Feet): 6 Height (Inches): 1.00 Weight (Pounds): 178 General Appearance: lethargic, confused Karishma Mulligan MD Jun 09, 2019 21:39
--- NOTE | 2019-06-09 23:59 | Pulmonology Progress Note ---
Assessment/Plan Assessment/Plan Pulmonary CCM Progress Note HPI: Patient is a 68 year old man, skilled nursing resident, admitted c/o shortness of breath, cough, noted to have Covid 19 Pneumonia. 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 Medications 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 Monitor cultures/viral studies PPX Hemodialysis per Renal Psychiatry following Laboratory Tests Noted: CXR: Hypoventilatory exam, interstitial changes, cardiomegaly, worseing infiltrates Subjective ROS Limited/Unobtainable: No Constitutional: Denies: fever Respiratory: Reports: dry cough, shortness of breath Psychiatric: Reports: other - refuses labs Allergies: Coded Allergies: No Known Allergies (Unverified , 05/28/19) Objective Last 24 Hour Vital Signs Date Time Temp Pulse Resp B/P (MAP) Pulse Ox O2 Delivery O2 Flow Rate FiO2 06/09/19 20:00 15.0 06/09/19 20:00 Non-Rebreather 15.0 06/09/19 19:00 86 28 132/72 (92) 95 06/09/19 19:00 132/72 06/09/19 18:30 73 19 105/64 (78) 100 06/09/19 18:00 77 24 125/63 (83) 100 06/09/19 18:00 125/63 06/09/19 17:30 78 22 125/63 (83) 98 06/09/19 17:00 78 23 120/64 (82) 99 06/09/19 17:00 120/64 06/09/19 16:30 73 17 144/70 (94) 100 06/09/19 16:00 115/63 06/09/19 16:00 78 06/09/19 16:00 15.0 06/09/19 16:00 Non-Rebreather 15.0 06/09/19 16:00 97.4 76 20 115/63 (80) 100 06/09/19 15:30 71 18 113/59 (77) 100 06/09/19 15:00 74 23 109/52 (71) 100 06/09/19 15:00 109/52 06/09/19 14:30 87 28 114/61 (78) 96 06/09/19 14:00 109/55 06/09/19 14:00 76 23 109/55 (73) 100 06/09/19 13:30 86 35 128/67 (87) 97 06/09/19 13:00 105/67 06/09/19 13:00 73 25 105/67 (80) 100 06/09/19 12:30 81 31 115/65 (82) 99 06/09/19 12:00 97.8 74 25 91/55 (67) 100 06/09/19 12:00 Non-Rebreather 15.0 06/09/19 12:00 79 06/09/19 12:00 110/58 06/09/19 12:00 15.0 06/09/19 11:30 80 27 89/54 (66) 98 06/09/19 11:00 85 31 120/61 (80) 99 06/09/19 11:00 120/61 06/09/19 10:30 73 22 108/56 (73) 100 06/09/19 10:00 120/65 06/09/19 10:00 88 35 120/65 (83) 97 06/09/19 09:30 73 24 102/51 (68) 100 06/09/19 09:00 80 31 98/57 (71) 99 06/09/19 09:00 98/57 06/09/19 08:30 82 28 116/65 (82) 98 06/09/19 08:00 98.9 70 22 98/53 (68) 100 06/09/19 08:00 15.0 06/09/19 08:00 98/53 06/09/19 08:00 Non-Rebreather 15.0 06/09/19 07:49 73 06/09/19 07:30 72 22 103/52 (69) 100 06/09/19 07:00 91/50 06/09/19 07:00 72 21 95/55 (68) 100 06/09/19 06:30 79 24 101/60 (74) 100 06/09/19 06:00 78 24 111/61 (78) 100 06/09/19 06:00 108/68 06/09/19 05:56 108/68 06/09/19 05:45 80 26 108/68 (81) 100 06/09/19 05:30 72 22 115/59 (77) 100 06/09/19 05:15 71 19 101/61 (74) 100 06/09/19 05:00 71 23 113/62 (79) 100 06/09/19 05:00 101/61 06/09/19 04:45 70 20 99/59 (72) 100 06/09/19 04:30 77 25 109/60 (76) 100 06/09/19 04:15 72 17 109/53 (71) 100 06/09/19 04:00 15.0 06/09/19 04:00 82 06/09/19 04:00 109/53 06/09/19 04:00 Non-Rebreather 15.0 06/09/19 04:00 98.1 71 19 92/56 (68) 100 06/09/19 03:30 90 33 104/56 (72) 95 06/09/19 03:00 81 29 117/61 (79) 100 06/09/19 03:00 98/58 06/09/19 02:30 72 22 99/51 (67) 100 06/09/19 02:00 84 27 121/68 (85) 98 06/09/19 02:00 109/60 06/09/19 01:30 77 23 122/58 (79) 100 06/09/19 01:00 71 22 105/56 (72) 100 06/09/19 01:00 102/55 06/09/19 00:30 81 31 112/63 (79) 93 06/09/19 00:00 Non-Rebreather 15.0 06/09/19 00:00 15.0 06/09/19 00:00 103/55 06/09/19 00:00 75 06/09/19 00:00 98.0 77 25 105/60 (75) 99 Intake and Output 06/08/19 06/09/19 19:00 07:00 Intake Total 565.57 ml 445.02 ml Output Total 1 ml 0 ml Balance 564.57 ml 445.02 ml IV Total 565.57 ml 385.02 ml Other 60 ml Output Urine Total 0 ml 0 ml Stool Total 1 ml # Bowel Movements 1 General Appearance: no acute distress HEENT: mucous membranes moist Abdomen: other - NGT, NPO Extremities: no edema, other - 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 Skin: no rash Neurologic/Psychiatric: disoriented Microbiology Date/Time Source Procedure Growth Status 06/07/19 12:30 Sputum Gram Stain - Final Complete 06/07/19 12:30 Sputum Sputum Culture - Final NORMAL UPPER RESPIRATORY WALDEMAR PRESENT Complete Laboratory Tests 06/09/19 04:20: White Blood Count 21.4H, Red Blood Count 2.21L, Hemoglobin 6.8*L, Hematocrit 19.9L, Mean Corpuscular Volume 90, Mean Corpuscular Hemoglobin 30.8, Mean Corpuscular Hemoglobin Concent 34.3, Red Cell Distribution Width 13.9, Platelet Count 199, Mean Platelet Volume 6.5, Neutrophils (%) (Auto) , Lymphocytes (%) ( Auto) , Monocytes (%) (Auto) , Eosinophils (%) (Auto) , Basophils (%) (Auto) , Differential Total Cells Counted 100, Neutrophils % (Manual) 88H, Lymphocytes % (Manual) 3L, Monocytes % (Manual) 6, Eosinophils % (Manual) 3, Basophils % ( Manual) 0, Band Neutrophils 0, Platelet Estimate Adequate, Platelet Morphology Normal, Hypochromasia 4+, Anisocytosis 1+, Spherocytes 3+, D-Dimer 35.20H, Sodium Level 139, Potassium Level 3.6, Chloride Level 99, Carbon Dioxide Level 21, Anion Gap 20H, Blood Urea Nitrogen 91H, Creatinine 10.6H, Estimat Glomerular Filtration Rate 4.9, Glucose Level 214H, Uric Acid 9.8H, Calcium Level 8.7, Phosphorus Level 6.1H, Magnesium Level 2.4, Total Bilirubin 0.3, Gamma Glutamyl Transpeptidase 3L, Aspartate Amino Transf (AST/SGOT) 28, Alanine Aminotransferase (ALT/SGPT) 11L, Alkaline Phosphatase 78, Lactate Dehydrogenase 449H, C-Reactive Protein, Quantitative 17.8H, Pro-B-Type Natriuretic Peptide 5492H, Total Protein 8.2, Albumin 2.2L, Globulin 6.0, Albumin/Globulin Ratio 0.4L Current Medications Medications (Trade) Dose Ordered Sig/Anthony Route PRN Reason Start Time Stop Time Status Last Admin Dose Admin Acetaminophen (Tylenol) 650 mg Q6H PRN ORAL MILD PAIN/Temp >100.5 06/07/19 00:00 07/07/19 00:00 Albumin Human 250 ml @ 0 mls/hr Q0M PRN IV For hypotension 06/06/19 21:15 09/04/19 12:44 Albuterol Sulfate (Proventil MDI) 2 puff Q4HRT INH 06/06/19 23:00 08/30/19 18:59 06/09/19 23:02 Allopurinol (allopurinoL) 300 mg DAILY NG 06/08/19 09:30 07/08/19 09:29 06/09/19 08:10 Cefepime HCl 1 gm/ Dextrose 55 ml @ 110 mls/hr Q24H IVPB 06/07/19 13:00 06/13/19 12:59 06/09/19 13:07 Chlorhexidine Gluconate (Michelle-Hex 2%) 1 applic DAILY@2000 TOPIC 06/07/19 20:00 09/05/19 19:59 06/09/19 20:45 Docusate Sodium (Colace) 100 mg THREE TIMES A DAY NG 06/07/19 13:00 07/07/19 12:59 06/09/19 18:48 Enoxaparin Sodium (Lovenox) 30 mg DAILY SUBQ 06/07/19 09:00 08/27/19 08:59 06/09/19 08:11 Epoetin Aftab (Epoetin Aftab(ESRD on dialysis)) 10,000 unit FRI-FRI-FRI SUBQ 06/07/19 21:00 08/31/19 20:59 06/09/19 20:45 Hydralazine HCl (Apresoline) 10 mg Q4H PRN IV Blood pressure over 160 systol 06/07/19 10:15 09/05/19 10:14 Midodrine (Pro-Amatine) 10 mg THREE TIMES A DAY NG 06/09/19 13:00 09/07/19 12:59 06/09/19 18:48 Norepinephrine Bitartrate 8 mg/ Dextrose 558 ml @ 0 mls/hr Q24H IV 06/07/19 09:00 07/07/19 08:59 06/09/19 05:56 Pantoprazole (Protonix) 40 mg Q12HR IVP 06/07/19 21:00 07/07/19 08:59 06/09/19 20:45 Salmeterol Xinafoate/ Fluticasone (Advair 100/50 Diskus) 1 puffs BID INH 06/07/19 09:00 08/27/19 08:59 06/09/19 18:49 Sevelamer Carbonate (Renvela) 1,600 mg THREE TIMES A DAY NG 06/07/19 13:00 09/05/19 12:59 06/09/19 18:48 Sodium Citrate (Bicitra) 30 ml Q8HR NG 06/07/19 14:00 06/28/19 11:59 06/09/19 21:48 Vancomycin HCl (Vanco rx to dose) 1 ea DAILY PRN MISC Per rx protocol 06/07/19 11:00 07/07/19 10:59 Arturo Mckeon MD Jun 09, 2019 23:59
[2019-06-10] VITALS (72 sets, daily range): BP systolic 86–147; BP diastolic 50–99
[2019-06-10] MEDS: Albuterol 90mcg Inhaler 8gm INH SCH ×6 (03:34→23:00)
--- NOTE | 2019-06-10 04:44 | Progress Note ---
DATE: 06/09/2019 SUBJECTIVE: The patient is deteriorating and easily agitated. MENTAL STATUS EXAMINATION: He is awake and confused. Mood is anxious. Affect is flat. Thought process is concrete. Thought content, no suicidal or homicidal ideation. Cognition is impaired. Insight and judgment are impaired. ASSESSMENT: Acute encephalopathy. PLAN: May need a restraint. . Guicho Pimentel M.D. DR: Yogesh JOB#: [id number] CC:
[2019-06-10 05:55] LABS: HEMOGLOBIN 9.5 G/DL (14.2-18.0); MEAN CORPUSCULAR VOLUME 88 FL (80-99); PLATELET COUNT 185 K/UL (150-450); RED BLOOD COUNT 3.09 M/UL (4.70-6.10); RED CELL DISTRIBUTION WIDTH 14.1 % (11.6-14.8)
[2019-06-10 06:26] LABS: ALANINE AMINOTRANSFERASE 8 U/L (12-78); ALBUMIN 2.1 G/DL (3.4-5.0); ALBUMIN/GLOBULIN RATIO 0.3 (1.0-2.7); ALKALINE PHOSPHATASE 87 U/L (46-116); ANION GAP 19 mmol/L (5-15); ASPARTATE AMINO TRANSFERASE 28 U/L (15-37); BILIRUBIN,TOTAL 0.4 MG/DL (0.2-1.0); BLOOD UREA NITROGEN 106 mg/dL (7-18); CALCIUM 9.1 MG/DL (8.5-10.1); CARBON DIOXIDE 22 MMOL/L (21-32); CHLORIDE 100 MMOL/L (98-107); CREATININE 11.9 MG/DL (0.55-1.30); PHOSPHORUS 6.1 MG/DL (2.5-4.9); POTASSIUM 3.7 MMOL/L (3.5-5.1); SODIUM 141 MMOL/L (136-145)
[2019-06-10] MEDS: Sodium Citrate 30ml NG SCH ×3 (06:33→21:02)
[2019-06-10] MEDS: Wixela 100/50 Inhaler - 60 dose INH SCH ×2 (08:04→16:43)
[2019-06-10] MEDS: Renvela 800mg Pkt NG SCH ×3 (08:05→16:44)
[2019-06-10] MEDS: Pantoprazole Inj IVP SCH ×2 (08:05→21:02)
[2019-06-10] MEDS: Midodrine 10mg tab NG SCH ×3 (08:05→16:44)
[2019-06-10] MEDS: Docusate 100mg/10ml Liq NG SCH ×3 (08:06→16:43)
[2019-06-10] MEDS: Enoxaparin 30mg Inj SUBQ SCH (08:06)
--- NOTE | 2019-06-10 10:33 | Nephrology Progress Note ---
Assessment/Plan Problem List: (1) CASSANDRA (acute kidney injury) (2) Anemia in chronic kidney disease (CKD) (3) HTN (hypertension) (4) COVID-19 Assessment Acute renal failure most likely superimposed on chronic kidney disease Suspected COVID-19 virus infection Possible Pneumonia, lymphopenia, elevated AST Cardiomegaly, possible CHF COPD Hypertension Anemia, most likely related to chronic kidney disease Plan Positive for COVID 19 Discussed with RN Mayelin Blood pressure better maintained however still on pressors Do for dialysis today June 09 ABG results noted Previously patient received dialysis last evening June 05, next dialysis June 07 which was incomplete due to patient's hypotension Will start on midodrine for blood pressure support. Meanwhile continue other pressors as needed Previously Patient is doing poorly, septic, white blood cells are rising, Hypotension somewhat improved We will keep n.p.o. , NG tube for medications, and change medication to IV as needed Patient remains full code Monitor vancomycin level Previously: Patient pulled out his femoral catheter yesterday June 03 which was reinserted by Dr. Mast Patient scheduled for dialysis again June 04, which again was not done due to dialysis nurse citing catheter malfunction Meanwhile continue management per ID, pulmonary , and psych. Meanwhile white blood cell count is rising. Patient blood pressure borderline low. Will check ABG Previously May 31 : I believe patient need dialysis treatment He however needs to competency assessment if can make decisions or not I will communicate with Dr. Mulligan Previously: Per pulmonary and ID advice Adjust blood pressure medication Renal diet Anemia work-up 2D echocardiogram refused Kidney ultrasound refused Jules catheter Urine studies Per orders Subjective ROS Limited/Unobtainable: Yes Objective Objective Last 24 Hour Vital Signs Date Time Temp Pulse Resp B/P (MAP) Pulse Ox O2 Delivery O2 Flow Rate FiO2 06/10/19 08:00 15.0 06/10/19 07:00 125/65 06/10/19 07:00 79 24 86/56 (66) 97 06/10/19 06:45 85 29 125/69 (87) 95 06/10/19 06:30 80 27 118/56 (76) 98 06/10/19 06:15 77 24 100/57 (71) 97 06/10/19 06:00 80 26 98/65 (76) 96 06/10/19 06:00 100/57 06/10/19 05:45 90 37 129/99 (109) 94 06/10/19 05:30 80 27 104/71 (82) 97 06/10/19 05:15 78 23 94/55 (68) 98 06/10/19 05:00 78 23 95/57 (70) 99 06/10/19 05:00 94/56 06/10/19 04:45 93 36 126/69 (88) 99 06/10/19 04:30 89 36 125/65 (85) 95 06/10/19 04:15 92 38 121/65 (83) 92 06/10/19 04:00 97.9 91 41 141/87 (105) 94 06/10/19 04:00 15.0 06/10/19 04:00 121/65 06/10/19 04:00 90 06/10/19 04:00 Non-Rebreather 15.0 06/10/19 03:45 93 37 141/69 (93) 92 06/10/19 03:30 83 30 123/69 (87) 99 06/10/19 03:15 73 23 99/53 (68) 99 06/10/19 03:00 99/53 06/10/19 03:00 76 25 103/59 (74) 97 06/10/19 02:45 89 37 137/63 (87) 94 06/10/19 02:30 76 30 107/61 (76) 99 06/10/19 02:15 73 25 102/58 (73) 98 06/10/19 02:00 95/56 06/10/19 02:00 72 25 95/56 (69) 98 06/10/19 01:45 80 33 117/69 (85) 97 06/10/19 01:30 76 28 108/65 (79) 99 06/10/19 01:15 75 27 111/61 (78) 100 06/10/19 01:00 72 22 100/53 (69) 99 06/10/19 01:00 111/61 06/10/19 00:45 76 30 117/64 (81) 99 06/10/19 00:30 75 27 99/58 (72) 99 06/10/19 00:15 72 24 101/56 (71) 99 06/10/19 00:00 15.0 06/10/19 00:00 101/56 06/10/19 00:00 Non-Rebreather 15.0 06/10/19 00:00 78 06/10/19 00:00 98.0 80 26 114/68 (83) 100 06/09/19 23:45 74 23 98/57 (71) 99 06/09/19 23:30 75 25 110/59 (76) 99 06/09/19 23:15 83 29 123/64 (83) 99 06/09/19 23:00 75 24 123/63 (83) 99 06/09/19 23:00 123/64 06/09/19 22:45 78 25 126/64 (84) 99 06/09/19 22:30 75 22 100/58 (72) 100 06/09/19 22:15 75 23 115/64 (81) 99 06/09/19 22:00 79 24 119/63 (81) 97 06/09/19 22:00 115/64 06/09/19 21:45 90 33 135/72 (93) 89 06/09/19 21:30 76 23 120/64 (82) 100 06/09/19 21:15 80 25 114/62 (79) 100 06/09/19 21:00 100/60 06/09/19 21:00 97.8 79 23 130/67 (88) 100 06/09/19 20:45 82 26 136/65 (88) 99 06/09/19 20:30 73 22 119/63 (81) 100 06/09/19 20:15 77 24 124/65 (84) 100 06/09/19 20:00 15.0 06/09/19 20:00 97.9 82 26 121/71 (88) 93 06/09/19 20:00 124/65 06/09/19 20:00 Non-Rebreather 15.0 06/09/19 20:00 86 06/09/19 19:45 85 28 133/67 (89) 90 06/09/19 19:30 83 29 137/67 (90) 94 06/09/19 19:00 86 28 132/72 (92) 95 06/09/19 19:00 132/72 06/09/19 18:30 73 19 105/64 (78) 100 06/09/19 18:00 77 24 125/63 (83) 100 06/09/19 18:00 125/63 4/29/20 17:30 78 22 125/63 (83) 98 06/09/19 17:00 78 23 120/64 (82) 99 06/09/19 17:00 120/64 06/09/19 16:30 73 17 144/70 (94) 100 06/09/19 16:00 115/63 06/09/19 16:00 78 06/09/19 16:00 15.0 06/09/19 16:00 Non-Rebreather 15.0 06/09/19 16:00 97.4 76 20 115/63 (80) 100 06/09/19 15:30 71 18 113/59 (77) 100 06/09/19 15:00 74 23 109/52 (71) 100 06/09/19 15:00 109/52 06/09/19 14:30 87 28 114/61 (78) 96 06/09/19 14:00 109/55 06/09/19 14:00 76 23 109/55 (73) 100 06/09/19 13:30 86 35 128/67 (87) 97 06/09/19 13:00 105/67 06/09/19 13:00 73 25 105/67 (80) 100 06/09/19 12:30 81 31 115/65 (82) 99 06/09/19 12:00 97.8 74 25 91/55 (67) 100 06/09/19 12:00 Non-Rebreather 15.0 06/09/19 12:00 79 06/09/19 12:00 110/58 06/09/19 12:00 15.0 06/09/19 11:30 80 27 89/54 (66) 98 06/09/19 11:00 85 31 120/61 (80) 99 06/09/19 11:00 120/61 06/09/19 10:30 73 22 108/56 (73) 100 Intake and Output 06/09/19 06/10/19 19:00 07:00 Intake Total 886.32 ml 312.51 ml Output Total 5 ml 30 ml Balance 881.32 ml 282.51 ml IV Total 356.32 ml 192.51 ml Blood Product 250 ml Other 280 ml 120 ml Output Urine Total 5 ml 30 ml # Bowel Movements 1 1 Current Medications Medications (Trade) Dose Ordered Sig/Anthony Route PRN Reason Start Time Stop Time Status Last Admin Dose Admin Acetaminophen (Tylenol) 650 mg Q6H PRN ORAL MILD PAIN/Temp >100.5 06/07/19 00:00 07/07/19 00:00 Albumin Human 250 ml @ 0 mls/hr Q0M PRN IV For hypotension 06/06/19 21:15 09/04/19 12:44 Albuterol Sulfate (Proventil MDI) 2 puff Q4HRT INH 06/06/19 23:00 08/30/19 18:59 06/10/19 06:33 Allopurinol (allopurinoL) 300 mg DAILY NG 06/08/19 09:30 07/08/19 09:29 06/10/19 08:06 Cefepime HCl 1 gm/ Dextrose 55 ml @ 110 mls/hr Q24H IVPB 06/07/19 13:00 06/13/19 12:59 06/09/19 13:07 Chlorhexidine Gluconate (Michelle-Hex 2%) 1 applic DAILY@1999 TOPIC 06/07/19 20:00 09/05/19 19:59 06/09/19 20:45 Docusate Sodium (Colace) 100 mg THREE TIMES A DAY NG 06/07/19 13:00 07/07/19 12:59 06/10/19 08:06 Enoxaparin Sodium (Lovenox) 30 mg DAILY SUBQ 06/07/19 09:00 08/27/19 08:59 06/10/19 08:06 Epoetin Aftab (Epoetin Aftab(ESRD on dialysis)) 10,000 unit SUBQ 06/07/19 21:00 08/31/19 20:59 06/09/19 20:45 Hydralazine HCl (Apresoline) 10 mg Q4H PRN IV Blood pressure over 160 systol 06/07/19 10:15 09/05/19 10:14 Midodrine (Pro-Amatine) 10 mg THREE TIMES A DAY NG 06/09/19 13:00 09/07/19 12:59 06/10/19 08:05 Norepinephrine Bitartrate 8 mg/ Dextrose 558 ml @ 0 mls/hr Q24H IV 06/07/19 09:00 07/07/19 08:59 06/09/19 05:56 Pantoprazole (Protonix) 40 mg Q12HR IVP 06/07/19 21:00 07/07/19 08:59 06/10/19 08:05 Salmeterol Xinafoate/ Fluticasone (Advair 100/50 Diskus) 1 puffs BID INH 06/07/19 09:00 08/27/19 08:59 06/09/19 18:49 Sevelamer Carbonate (Renvela) 1,600 mg THREE TIMES A DAY NG 06/07/19 13:00 09/05/19 12:59 06/10/19 08:05 Sodium Citrate (Bicitra) 30 ml Q8HR NG 06/07/19 14:00 06/28/19 11:59 06/10/19 06:33 Vancomycin HCl (Vanco rx to dose) 1 ea DAILY PRN MISC Per rx protocol 06/07/19 11:00 07/07/19 10:59 Laboratory Tests 06/10/19 04:32: White Blood Count 23.0*H, Red Blood Count 3.09L, Hemoglobin 9.5#L, Hematocrit 27.0#L, Mean Corpuscular Volume 88, Mean Corpuscular Hemoglobin 30.8, Mean Corpuscular Hemoglobin Concent 35.1, Red Cell Distribution Width 14.1, Platelet Count 185, Mean Platelet Volume 6.5, Neutrophils (%) (Auto) , Lymphocytes (%) ( Auto) , Monocytes (%) (Auto) , Eosinophils (%) (Auto) , Basophils (%) (Auto) , Differential Total Cells Counted 100, Neutrophils % (Manual) 89H, Lymphocytes % (Manual) 2L, Monocytes % (Manual) 7, Eosinophils % (Manual) 2, Basophils % ( Manual) 0, Band Neutrophils 0, Nucleated Red Blood Cells 1, Platelet Estimate Adequate, Platelet Morphology Normal, Hypochromasia 2+, Anisocytosis 1+, Sodium Level 141, Potassium Level 3.7, Chloride Level 100, Carbon Dioxide Level 22, Anion Gap 19H, Blood Urea Nitrogen 106H, Creatinine 11.9H, Estimat Glomerular Filtration Rate 4.3, Glucose Level 172H, Uric Acid 10.8H, Calcium Level 9.1, Phosphorus Level 6.1H, Magnesium Level 2.5H, Total Bilirubin 0.4, Aspartate Amino Transf (AST/SGOT) 28, Alanine Aminotransferase (ALT/SGPT) 8L, Alkaline Phosphatase 87, C-Reactive Protein, Quantitative 29.8H, Pro-B-Type Natriuretic Peptide 6139H, Total Protein 8.3H, Albumin 2.1L, Globulin 6.2, Albumin/Globulin Ratio 0.3L 06/10/19 08:58: Arterial Blood pH 7.347L, Arterial Blood Partial Pressure CO2 35.5, Arterial Blood Partial Pressure O2 80.4, Arterial Blood HCO3 19.0L, Arterial Blood Oxygen Saturation 93.9L, Arterial Blood Base Excess -6.0L, Kosta Test N/a Height (Feet): 6 Height (Inches): 1.00 Weight (Pounds): 183 General Appearance: no apparent distress, lethargic EENT: other - On nonrebreather mask Cardiovascular: tachycardia - Slightly Respiratory/Chest: decreased breath sounds Abdomen: distended Objective No change Mic Cole MD Jun 10, 2019 10:33
--- NOTE | 2019-06-10 10:45 | Infectious Diseases Prog Note ---
Assessment/Plan Assessment/Plan IMPRESSION: 1. COVID19 pneumonia Positive: 05/27, 05/31 , 06/05 2. MRSA carrier. 3. Chronic kidney disease , end-stage renal disease. 4. COPD. 5. Hypertension. 6. Anemia. 7. Hypothyroidism. 8. Hyperlipidemia. 9. Major depression. 10. Leukocytosis 11. Hypotension 12. Hepatitis C 13. Hyperuricemia RECOMMENDATIONS: Continue Cefepime Discontinue IV Vancomycin Finished hydroxychloroquine. Will f/u COVID19 test Subjective ROS Limited/Unobtainable: Yes Constitutional: Denies: fever Neurologic: Reports: confusion, other - on restraint Allergies: Coded Allergies: No Known Allergies (Unverified , 05/28/19) Objective Vital Signs Last 24 Hour Vital Signs Date Time Temp Pulse Resp B/P (MAP) Pulse Ox O2 Delivery O2 Flow Rate FiO2 06/10/19 08:00 15.0 06/10/19 07:00 125/65 06/10/19 07:00 79 24 86/56 (66) 97 06/10/19 06:45 85 29 125/69 (87) 95 06/10/19 06:30 80 27 118/56 (76) 98 06/10/19 06:15 77 24 100/57 (71) 97 06/10/19 06:00 80 26 98/65 (76) 96 06/10/19 06:00 100/57 06/10/19 05:45 90 37 129/99 (109) 94 06/10/19 05:30 80 27 104/71 (82) 97 06/10/19 05:15 78 23 94/55 (68) 98 06/10/19 05:00 78 23 95/57 (70) 99 06/10/19 05:00 94/56 06/10/19 04:45 93 36 126/69 (88) 99 06/10/19 04:30 89 36 125/65 (85) 95 06/10/19 04:15 92 38 121/65 (83) 92 06/10/19 04:00 97.9 91 41 141/87 (105) 94 06/10/19 04:00 15.0 06/10/19 04:00 121/65 06/10/19 04:00 90 06/10/19 04:00 Non-Rebreather 15.0 06/10/19 03:45 93 37 141/69 (93) 92 06/10/19 03:30 83 30 123/69 (87) 99 06/10/19 03:15 73 23 99/53 (68) 99 06/10/19 03:00 99/53 06/10/19 03:00 76 25 103/59 (74) 97 06/10/19 02:45 89 37 137/63 (87) 94 06/10/19 02:30 76 30 107/61 (76) 99 06/10/19 02:15 73 25 102/58 (73) 98 06/10/19 02:00 95/56 06/10/19 02:00 72 25 95/56 (69) 98 06/10/19 01:45 80 33 117/69 (85) 97 06/10/19 01:30 76 28 108/65 (79) 99 06/10/19 01:15 75 27 111/61 (78) 100 06/10/19 01:00 72 22 100/53 (69) 99 06/10/19 01:00 111/61 06/10/19 00:45 76 30 117/64 (81) 99 06/10/19 00:30 75 27 99/58 (72) 99 06/10/19 00:15 72 24 101/56 (71) 99 06/10/19 00:00 15.0 06/10/19 00:00 101/56 06/10/19 00:00 Non-Rebreather 15.0 06/10/19 00:00 78 06/10/19 00:00 98.0 80 26 114/68 (83) 100 06/09/19 23:45 74 23 98/57 (71) 99 06/09/19 23:30 75 25 110/59 (76) 99 06/09/19 23:15 83 29 123/64 (83) 99 06/09/19 23:00 75 24 123/63 (83) 99 06/09/19 23:00 123/64 06/09/19 22:45 78 25 126/64 (84) 99 06/09/19 22:30 75 22 100/58 (72) 100 06/09/19 22:15 75 23 115/64 (81) 99 06/09/19 22:00 79 24 119/63 (81) 97 06/09/19 22:00 115/64 06/09/19 21:45 90 33 135/72 (93) 89 06/09/19 21:30 76 23 120/64 (82) 100 06/09/19 21:15 80 25 114/62 (79) 100 06/09/19 21:00 100/60 06/09/19 21:00 97.8 79 23 130/67 (88) 100 06/09/19 20:45 82 26 136/65 (88) 99 06/09/19 20:30 73 22 119/63 (81) 100 06/09/19 20:15 77 24 124/65 (84) 100 06/09/19 20:00 15.0 06/09/19 20:00 97.9 82 26 121/71 (88) 93 06/09/19 20:00 124/65 06/09/19 20:00 Non-Rebreather 15.0 06/09/19 20:00 86 06/09/19 19:45 85 28 133/67 (89) 90 06/09/19 19:30 83 29 137/67 (90) 94 06/09/19 19:00 86 28 132/72 (92) 95 06/09/19 19:00 132/72 06/09/19 18:30 73 19 105/64 (78) 100 06/09/19 18:00 77 24 125/63 (83) 100 06/09/19 18:00 125/63 06/09/19 17:30 78 22 125/63 (83) 98 06/09/19 17:00 78 23 120/64 (82) 99 06/09/19 17:00 120/64 06/09/19 16:30 73 17 144/70 (94) 100 06/09/19 16:00 115/63 06/09/19 16:00 78 06/09/19 16:00 15.0 06/09/19 16:00 Non-Rebreather 15.0 06/09/19 16:00 97.4 76 20 115/63 (80) 100 06/09/19 15:30 71 18 113/59 (77) 100 06/09/19 15:00 74 23 109/52 (71) 100 06/09/19 15:00 109/52 06/09/19 14:30 87 28 114/61 (78) 96 4/29/20 14:00 109/55 06/09/19 14:00 76 23 109/55 (73) 100 06/09/19 13:30 86 35 128/67 (87) 97 06/09/19 13:00 105/67 06/09/19 13:00 73 25 105/67 (80) 100 06/09/19 12:30 81 31 115/65 (82) 99 06/09/19 12:00 97.8 74 25 91/55 (67) 100 06/09/19 12:00 Non-Rebreather 15.0 06/09/19 12:00 79 06/09/19 12:00 110/58 06/09/19 12:00 15.0 06/09/19 11:30 80 27 89/54 (66) 98 06/09/19 11:00 85 31 120/61 (80) 99 06/09/19 11:00 120/61 Height (Feet): 6 Height (Inches): 1.00 Weight (Pounds): 183 HEENT: mucous membranes moist Respiratory/Chest: other - oxygen by rebreathing mask Cardiovascular: normal rate Abdomen: soft, non tender Extremities: no edema, other - toe amputions in quiñonez foot Neurologic/Psychiatric: disoriented Microbiology Date/Time Source Procedure Growth Status 06/07/19 12:30 Sputum Gram Stain - Final Complete 06/07/19 12:30 Sputum Sputum Culture - Final NORMAL UPPER RESPIRATORY WALDEMAR PRESENT Complete Laboratory Tests Test 06/10/19 04:32 06/10/19 08:58 White Blood Count 23.0 K/UL (4.8-10.8) *H Red Blood Count 3.09 M/UL (4.70-6.10) L Hemoglobin 9.5 G/DL (14.2-18.0) #L Hematocrit 27.0 % (42.0-52.0) #L Mean Corpuscular Volume 88 FL (80-99) Mean Corpuscular Hemoglobin 30.8 PG (27.0-31.0) Mean Corpuscular Hemoglobin Concent 35.1 G/DL (32.0-36.0) Red Cell Distribution Width 14.1 % (11.6-14.8) Platelet Count 185 K/UL (150-450) Mean Platelet Volume 6.5 FL (6.5-10.1) Neutrophils (%) (Auto) % (45.0-75.0) Lymphocytes (%) (Auto) % (20.0-45.0) Monocytes (%) (Auto) % (1.0-10.0) Eosinophils (%) (Auto) % (0.0-3.0) Basophils (%) (Auto) % (0.0-2.0) Differential Total Cells Counted 100 Neutrophils % (Manual) 89 % (45-75) H Lymphocytes % (Manual) 2 % (20-45) L Monocytes % (Manual) 7 % (1-10) Eosinophils % (Manual) 2 % (0-3) Basophils % (Manual) 0 % (0-2) Band Neutrophils 0 % (0-8) Nucleated Red Blood Cells 1 /100 WBC Platelet Estimate Adequate Platelet Morphology Normal Hypochromasia 2+ Anisocytosis 1+ Sodium Level 141 MMOL/L (136-145) Potassium Level 3.7 MMOL/L (3.5-5.1) Chloride Level 100 MMOL/L (98-107) Carbon Dioxide Level 22 MMOL/L (21-32) Anion Gap 19 mmol/L (5-15) H Blood Urea Nitrogen 106 mg/dL (7-18) H Creatinine 11.9 MG/DL (0.55-1.30) H Estimat Glomerular Filtration Rate 4.3 mL/min (>60) Glucose Level 172 MG/DL (74-106) H Uric Acid 10.8 MG/DL (2.6-7.2) H Calcium Level 9.1 MG/DL (8.5-10.1) Phosphorus Level 6.1 MG/DL (2.5-4.9) H Magnesium Level 2.5 MG/DL (1.8-2.4) H Total Bilirubin 0.4 MG/DL (0.2-1.0) Aspartate Amino Transf (AST/SGOT) 28 U/L (15-37) Alanine Aminotransferase (ALT/SGPT) 8 U/L (12-78) L Alkaline Phosphatase 87 U/L (46-116) C-Reactive Protein, Quantitative 29.8 mg/dL (0.00-0.90) H Pro-B-Type Natriuretic Peptide 6139 pg/mL (0-125) H Total Protein 8.3 G/DL (6.4-8.2) H Albumin 2.1 G/DL (3.4-5.0) L Globulin 6.2 g/dL Albumin/Globulin Ratio 0.3 (1.0-2.7) L Arterial Blood pH 7.347 (7.350-7.450) Arterial Blood Partial Pressure CO2 35.5 mmHg (35.0-45.0) Arterial Blood Partial Pressure O2 80.4 mmHg (75.0-100.0) Arterial Blood HCO3 19.0 mmol/L (22.0-26.0) L Arterial Blood Oxygen Saturation 93.9 % (95-100) L Arterial Blood Base Excess -6.0 (-2-2) L Kosta Test N/a Current Medications Medications (Trade) Dose Ordered Sig/Anthony Route PRN Reason Start Time Stop Time Status Last Admin Dose Admin Acetaminophen (Tylenol) 650 mg Q6H PRN ORAL MILD PAIN/Temp >100.5 06/07/19 00:00 07/07/19 00:00 Albumin Human 250 ml @ 0 mls/hr Q0M PRN IV For hypotension 06/06/19 21:15 09/04/19 12:44 Albuterol Sulfate (Proventil MDI) 2 puff Q4HRT INH 06/06/19 23:00 08/30/19 18:59 06/10/19 06:33 Allopurinol (allopurinoL) 300 mg DAILY NG 06/08/19 09:30 07/08/19 09:29 06/10/19 08:06 Cefepime HCl 1 gm/ Dextrose 55 ml @ 110 mls/hr Q24H IVPB 06/07/19 13:00 06/13/19 12:59 06/09/19 13:07 Chlorhexidine Gluconate (Michelle-Hex 2%) 1 applic DAILY@2000 TOPIC 06/07/19 20:00 09/05/19 19:59 06/09/19 20:45 Docusate Sodium (Colace) 100 mg THREE TIMES A DAY NG 06/07/19 13:00 07/07/19 12:59 06/10/19 08:06 Enoxaparin Sodium (Lovenox) 30 mg DAILY SUBQ 06/07/19 09:00 08/27/19 08:59 06/10/19 08:06 Epoetin Aftab (Epoetin Aftab(ESRD on dialysis)) 10,000 unit SUBQ 06/07/19 21:00 08/31/19 20:59 06/09/19 20:45 Hydralazine HCl (Apresoline) 10 mg Q4H PRN IV Blood pressure over 160 systol 06/07/19 10:15 09/05/19 10:14 Midodrine (Pro-Amatine) 10 mg THREE TIMES A DAY NG 06/09/19 13:00 09/07/19 12:59 06/10/19 08:05 Norepinephrine Bitartrate 8 mg/ Dextrose 558 ml @ 0 mls/hr Q24H IV 06/07/19 09:00 07/07/19 08:59 06/09/19 05:56 Pantoprazole (Protonix) 40 mg Q12HR IVP 06/07/19 21:00 07/07/19 08:59 06/10/19 08:05 Salmeterol Xinafoate/ Fluticasone (Advair 100/50 Diskus) 1 puffs BID INH 06/07/19 09:00 08/27/19 08:59 06/09/19 18:49 Sevelamer Carbonate (Renvela) 1,600 mg THREE TIMES A DAY NG 06/07/19 13:00 09/05/19 12:59 06/10/19 08:05 Sodium Citrate (Bicitra) 30 ml Q8HR NG 06/07/19 14:00 06/28/19 11:59 06/10/19 06:33 Vancomycin HCl (Vanco rx to dose) 1 ea DAILY PRN MISC Per rx protocol 06/07/19 11:00 07/07/19 10:59 Ted Leyva MD Jun 10, 2019 10:45
[2019-06-10] MEDS: NOREPINEPHRINE BITARTRATE IV SCH (11:10)
[2019-06-10] MEDS: D5W IV SCH (11:10)
--- NOTE | 2019-06-10 12:53 | Hematology/Onc Progress Note ---
Assessment/Plan Assessment/Plan Assessment and Recs: # Anemia of chronic disease, likely related ot underlying kidney disease --> hgb trend 9-->8-->7.3-->7.9-->6.8->9.5 --> transfuse as needed, hgb goal >7 --> no evidence of hemolysis --> peripheral smear has been reviewed --> epogen started tid ==>> transfuse w 2 units 06/08 # Leukocytosis likely related to suspected COVID-19 virus infection --> on abx and plaquenil --> trend smear as needed --> initially 4-->11-->14.5-->21-->26-->-> --> pulm is aware --> on abx cefepime/vanc # Lymphopenia --> likely related to covid19 # Possible Pneumonia # Cardiomegaly # Transaminitis with Elevated AST # COPD # Chronic Kidney Disease --> per renal hd # Hypertension # Dvt ppx lovenox Appreciate consultation and ernesto Rn Subjective Allergies: Coded Allergies: No Known Allergies (Unverified , 05/28/19) All Systems: reviewed and negative except above Subjective 06/01 extremely agitated, not allowing labs draws, no night sweats, cbc ordered 06/02 confused, restraints, on abx and plaquenil, hgb 7.9, nrb 15 L 06/03 is with nonrebreather, but not compliant, remains confused 06/05 no bleeding, labs noted, no major bleeding, otherwise comfortable 06/06 labs reviewed, no bleeding, meds noted, no night sweats, on levo and nonrebreather 06/07 labs noted, no bleeding, meds reviewed, no bleeding, wbc higher 06/08 to get 2 units prbc, no night sweats, meds reviewed 06/09 is on cefepime and vanc, labs noted, ernesto Rn, no bleeding Objective Objective Current Medications Medications (Trade) Dose Ordered Sig/Anthony Route PRN Reason Start Time Stop Time Status Last Admin Dose Admin Acetaminophen (Tylenol) 650 mg Q6H PRN ORAL MILD PAIN/Temp >100.5 06/07/19 00:00 07/07/19 00:00 Albumin Human 250 ml @ 0 mls/hr Q0M PRN IV For hypotension 06/06/19 21:15 09/04/19 12:44 Albuterol Sulfate (Proventil MDI) 2 puff Q4HRT INH 06/06/19 23:00 08/30/19 18:59 06/10/19 11:15 Allopurinol (allopurinoL) 300 mg DAILY NG 06/08/19 09:30 07/08/19 09:29 06/10/19 08:06 Cefepime HCl 1 gm/ Dextrose 55 ml @ 110 mls/hr Q24H IVPB 06/07/19 13:00 06/13/19 12:59 06/09/19 13:07 Chlorhexidine Gluconate (Michelle-Hex 2%) 1 applic DAILY@2000 TOPIC 06/07/19 20:00 09/05/19 19:59 06/09/19 20:45 Docusate Sodium (Colace) 100 mg THREE TIMES A DAY NG 06/07/19 13:00 07/07/19 12:59 06/10/19 08:06 Enoxaparin Sodium (Lovenox) 30 mg DAILY SUBQ 06/07/19 09:00 08/27/19 08:59 06/10/19 08:06 Epoetin Aftab (Epoetin Aftab(ESRD on dialysis)) 10,000 unit FRI-FRI-FRI SUBQ 06/07/19 21:00 08/31/19 20:59 06/09/19 20:45 Hydralazine HCl (Apresoline) 10 mg Q4H PRN IV Blood pressure over 160 systol 06/07/19 10:15 09/05/19 10:14 Midodrine (Pro-Amatine) 10 mg THREE TIMES A DAY NG 06/09/19 13:00 09/07/19 12:59 06/10/19 08:05 Norepinephrine Bitartrate 8 mg/ Dextrose 558 ml @ 0 mls/hr Q24H IV 06/07/19 09:00 07/07/19 08:59 06/10/19 11:10 Pantoprazole (Protonix) 40 mg Q12HR IVP 06/07/19 21:00 07/07/19 08:59 06/10/19 08:05 Salmeterol Xinafoate/ Fluticasone (Advair 100/50 Diskus) 1 puffs BID INH 06/07/19 09:00 08/27/19 08:59 06/09/19 18:49 Sevelamer Carbonate (Renvela) 1,600 mg THREE TIMES A DAY NG 06/07/19 13:00 09/05/19 12:59 06/10/19 08:05 Sodium Citrate (Bicitra) 30 ml Q8HR NG 06/07/19 14:00 06/28/19 11:59 06/10/19 06:33 Last 24 Hour Vital Signs Date Time Temp Pulse Resp B/P (MAP) Pulse Ox O2 Delivery O2 Flow Rate FiO2 06/10/19 11:10 118/64 06/10/19 11:00 84 29 124/75 (91) 94 06/10/19 10:30 74 23 104/63 (77) 99 06/10/19 10:00 78 28 125/68 (87) 99 06/10/19 09:30 74 23 96/58 (71) 98 06/10/19 09:00 81 31 147/63 (91) 100 06/10/19 09:00 147/63 06/10/19 08:30 83 30 122/64 (83) 96 06/10/19 08:00 83 06/10/19 08:00 Non-Rebreather 15.0 06/10/19 08:00 125/65 06/10/19 08:00 97.7 85 31 125/65 (85) 97 06/10/19 08:00 15.0 06/10/19 07:30 77 24 110/56 (74) 98 06/10/19 07:00 125/65 06/10/19 07:00 79 24 86/56 (66) 97 06/10/19 06:45 85 29 125/69 (87) 95 06/10/19 06:30 80 27 118/56 (76) 98 06/10/19 06:15 77 24 100/57 (71) 97 06/10/19 06:00 80 26 98/65 (76) 96 06/10/19 06:00 100/57 06/10/19 05:45 90 37 129/99 (109) 94 06/10/19 05:30 80 27 104/71 (82) 97 06/10/19 05:15 78 23 94/55 (68) 98 06/10/19 05:00 78 23 95/57 (70) 99 06/10/19 05:00 94/56 06/10/19 04:45 93 36 126/69 (88) 99 06/10/19 04:30 89 36 125/65 (85) 95 06/10/19 04:15 92 38 121/65 (83) 92 06/10/19 04:00 97.9 91 41 141/87 (105) 94 06/10/19 04:00 15.0 06/10/19 04:00 121/65 06/10/19 04:00 90 06/10/19 04:00 Non-Rebreather 15.0 06/10/19 03:45 93 37 141/69 (93) 92 06/10/19 03:30 83 30 123/69 (87) 99 06/10/19 03:15 73 23 99/53 (68) 99 06/10/19 03:00 99/53 06/10/19 03:00 76 25 103/59 (74) 97 06/10/19 02:45 89 37 137/63 (87) 94 06/10/19 02:30 76 30 107/61 (76) 99 06/10/19 02:15 73 25 102/58 (73) 98 06/10/19 02:00 95/56 06/10/19 02:00 72 25 95/56 (69) 98 06/10/19 01:45 80 33 117/69 (85) 97 06/10/19 01:30 76 28 108/65 (79) 99 06/10/19 01:15 75 27 111/61 (78) 100 06/10/19 01:00 72 22 100/53 (69) 99 06/10/19 01:00 111/61 06/10/19 00:45 76 30 117/64 (81) 99 06/10/19 00:30 75 27 99/58 (72) 99 06/10/19 00:15 72 24 101/56 (71) 99 06/10/19 00:00 15.0 06/10/19 00:00 101/56 06/10/19 00:00 Non-Rebreather 15.0 06/10/19 00:00 78 06/10/19 00:00 98.0 80 26 114/68 (83) 100 06/09/19 23:45 74 23 98/57 (71) 99 06/09/19 23:30 75 25 110/59 (76) 99 06/09/19 23:15 83 29 123/64 (83) 99 06/09/19 23:00 75 24 123/63 (83) 99 06/09/19 23:00 123/64 06/09/19 22:45 78 25 126/64 (84) 99 06/09/19 22:30 75 22 100/58 (72) 100 06/09/19 22:15 75 23 115/64 (81) 99 06/09/19 22:00 79 24 119/63 (81) 97 06/09/19 22:00 115/64 06/09/19 21:45 90 33 135/72 (93) 89 06/09/19 21:30 76 23 120/64 (82) 100 06/09/19 21:15 80 25 114/62 (79) 100 06/09/19 21:00 100/60 06/09/19 21:00 97.8 79 23 130/67 (88) 100 06/09/19 20:45 82 26 136/65 (88) 99 06/09/19 20:30 73 22 119/63 (81) 100 06/09/19 20:15 77 24 124/65 (84) 100 06/09/19 20:00 15.0 06/09/19 20:00 97.9 82 26 121/71 (88) 93 06/09/19 20:00 124/65 06/09/19 20:00 Non-Rebreather 15.0 06/09/19 20:00 86 06/09/19 19:45 85 28 133/67 (89) 90 06/09/19 19:30 83 29 137/67 (90) 94 06/09/19 19:00 86 28 132/72 (92) 95 06/09/19 19:00 132/72 06/09/19 18:30 73 19 105/64 (78) 100 06/09/19 18:00 77 24 125/63 (83) 100 06/09/19 18:00 125/63 06/09/19 17:30 78 22 125/63 (83) 98 06/09/19 17:00 78 23 120/64 (82) 99 06/09/19 17:00 120/64 06/09/19 16:30 73 17 144/70 (94) 100 06/09/19 16:00 115/63 06/09/19 16:00 78 06/09/19 16:00 15.0 06/09/19 16:00 Non-Rebreather 15.0 06/09/19 16:00 97.4 76 20 115/63 (80) 100 06/09/19 15:30 71 18 113/59 (77) 100 06/09/19 15:00 74 23 109/52 (71) 100 06/09/19 15:00 109/52 06/09/19 14:30 87 28 114/61 (78) 96 06/09/19 14:00 109/55 06/09/19 14:00 76 23 109/55 (73) 100 06/09/19 13:30 86 35 128/67 (87) 97 06/09/19 13:00 105/67 06/09/19 13:00 73 25 105/67 (80) 100 06/09/19 12:30 81 31 115/65 (82) 99 06/09/19 12:00 97.8 74 25 91/55 (67) 100 06/09/19 12:00 Non-Rebreather 15.0 06/09/19 12:00 79 06/09/19 12:00 110/58 06/09/19 12:00 15.0 06/09/19 11:30 80 27 89/54 (66) 98 06/09/19 11:00 85 31 120/61 (80) 99 06/09/19 11:00 120/61 06/09/19 10:30 73 22 108/56 (73) 100 06/09/19 10:00 120/65 06/09/19 10:00 88 35 120/65 (83) 97 06/09/19 09:30 73 24 102/51 (68) 100 06/09/19 09:00 80 31 98/57 (71) 99 06/09/19 09:00 98/57 06/09/19 08:30 82 28 116/65 (82) 98 06/09/19 08:00 98.9 70 22 98/53 (68) 100 06/09/19 08:00 15.0 06/09/19 08:00 98/53 06/09/19 08:00 Non-Rebreather 15.0 06/09/19 07:49 73 06/09/19 07:30 72 22 103/52 (69) 100 06/09/19 07:00 91/50 06/09/19 07:00 72 21 95/55 (68) 100 06/09/19 06:30 79 24 101/60 (74) 100 06/09/19 06:00 78 24 111/61 (78) 100 06/09/19 06:00 108/68 06/09/19 05:56 108/68 06/09/19 05:45 80 26 108/68 (81) 100 06/09/19 05:30 72 22 115/59 (77) 100 06/09/19 05:15 71 19 101/61 (74) 100 06/09/19 05:00 71 23 113/62 (79) 100 06/09/19 05:00 101/61 06/09/19 04:45 70 20 99/59 (72) 100 06/09/19 04:30 77 25 109/60 (76) 100 06/09/19 04:15 72 17 109/53 (71) 100 06/09/19 04:00 15.0 06/09/19 04:00 82 06/09/19 04:00 109/53 06/09/19 04:00 Non-Rebreather 15.0 06/09/19 04:00 98.1 71 19 92/56 (68) 100 06/09/19 03:30 90 33 104/56 (72) 95 06/09/19 03:00 81 29 117/61 (79) 100 06/09/19 03:00 98/58 06/09/19 02:30 72 22 99/51 (67) 100 06/09/19 02:00 84 27 121/68 (85) 98 06/09/19 02:00 109/60 06/09/19 01:30 77 23 122/58 (79) 100 06/09/19 01:00 71 22 105/56 (72) 100 06/09/19 01:00 102/55 06/09/19 00:30 81 31 112/63 (79) 93 06/09/19 00:00 Non-Rebreather 15.0 06/09/19 00:00 15.0 06/09/19 00:00 103/55 06/09/19 00:00 75 06/09/19 00:00 98.0 77 25 105/60 (75) 99 06/08/19 23:45 81 30 115/64 (81) 97 06/08/19 23:30 73 25 95/58 (70) 100 06/08/19 23:15 78 26 109/61 (77) 100 06/08/19 23:00 74 23 103/62 (76) 100 06/08/19 23:00 109/61 06/08/19 22:45 73 23 99/58 (72) 100 06/08/19 22:30 78 25 107/60 (76) 100 06/08/19 22:15 76 24 106/66 (79) 98 06/08/19 22:00 79 29 97/58 (71) 98 06/08/19 22:00 106/66 06/08/19 21:45 81 28 115/62 (79) 98 06/08/19 21:30 83 32 120/63 (82) 99 06/08/19 21:15 76 23 94/59 (71) 98 06/08/19 21:00 83 27 111/63 (79) 98 06/08/19 21:00 94/59 06/08/19 20:45 83 33 120/69 (86) 98 06/08/19 20:43 99 Non-Rebreather 15.0 100 06/08/19 20:30 84 32 114/71 (85) 98 06/08/19 20:15 75 27 117/62 (80) 100 06/08/19 20:00 66 06/08/19 20:00 15.0 06/08/19 20:00 98.3 75 28 108/59 (75) 100 06/08/19 20:00 Non-Rebreather 15.0 06/08/19 20:00 117/62 06/08/19 19:45 72 25 99/58 (72) 100 06/08/19 19:30 83 31 118/66 (83) 100 06/08/19 19:00 72 24 116/55 (75) 100 06/08/19 19:00 116/55 06/08/19 18:30 81 31 120/58 (78) 99 4/28/20 18:00 71 24 124/59 (80) 100 06/08/19 18:00 124/59 06/08/19 17:30 72 26 126/73 (90) 99 06/08/19 17:00 72 28 113/56 (75) 99 06/08/19 17:00 125/69 06/08/19 16:30 74 28 95/54 (68) 97 06/08/19 16:15 88 32 125/69 (87) 96 06/08/19 16:02 132/60 06/08/19 16:00 15.0 06/08/19 16:00 125/69 06/08/19 16:00 Non-Rebreather 15.0 06/08/19 16:00 98.2 72 24 106/44 (64) 100 06/08/19 16:00 66 06/08/19 15:45 76 24 132/60 (84) 100 06/08/19 15:30 73 25 111/62 (78) 100 06/08/19 15:00 85 26 92/62 (72) 98 06/08/19 15:00 93/61 06/08/19 14:30 97 46 104/49 (67) 87 06/08/19 14:00 99/55 06/08/19 14:00 68 23 118/60 (79) 100 06/08/19 13:30 74 22 116/62 (80) 100 06/08/19 13:00 69 23 113/59 (77) 100 06/08/19 13:00 118/62 Intake and Output 06/09/19 06/10/19 19:00 07:00 Intake Total 886.32 ml 312.51 ml Output Total 5 ml 30 ml Balance 881.32 ml 282.51 ml IV Total 356.32 ml 192.51 ml Blood Product 250 ml Other 280 ml 120 ml Output Urine Total 5 ml 30 ml # Bowel Movements 1 1 Labs Test 06/07/19 19:30 06/08/19 05:16 06/08/19 19:20 06/09/19 04:20 Stool Occult Blood Negative (NEGATIVE) Sodium Level 144 MMOL/L (136-145) 139 MMOL/L (136-145) Potassium Level 4.5 MMOL/L (3.5-5.1) 3.6 MMOL/L (3.5-5.1) Chloride Level 105 MMOL/L (98-107) 99 MMOL/L (98-107) Carbon Dioxide Level 20 MMOL/L (21-32) 21 MMOL/L (21-32) Anion Gap 19 mmol/L (5-15) 20 mmol/L (5-15) Blood Urea Nitrogen 88 mg/dL (7-18) 91 mg/dL (7-18) Creatinine 10.0 MG/DL (0.55-1.30) 10.6 MG/DL (0.55-1.30) Estimat Glomerular Filtration Rate 5.2 mL/min (>60) 4.9 mL/min (>60) Glucose Level 221 MG/DL (74-106) 214 MG/DL (74-106) Lactic Acid Level 1.40 mmol/L (0.4-2.0) Uric Acid 10.6 MG/DL (2.6-7.2) 9.8 MG/DL (2.6-7.2) Calcium Level 9.0 MG/DL (8.5-10.1) 8.7 MG/DL (8.5-10.1) Phosphorus Level 7.6 MG/DL (2.5-4.9) 6.1 MG/DL (2.5-4.9) Magnesium Level 2.6 MG/DL (1.8-2.4) 2.4 MG/DL (1.8-2.4) Total Bilirubin 0.3 MG/DL (0.2-1.0) 0.3 MG/DL (0.2-1.0) Gamma Glutamyl Transpeptidase 3 U/L (5-85) 3 U/L (5-85) Aspartate Amino Transf (AST/SGOT) 30 U/L (15-37) 28 U/L (15-37) Alanine Aminotransferase (ALT/SGPT) 17 U/L (12-78) 11 U/L (12-78) Alkaline Phosphatase 86 U/L (46-116) 78 U/L (46-116) Total Creatine Kinase 135 U/L (26-308) Troponin I 0.000 ng/mL (0.000-0.056) C-Reactive Protein, Quantitative 32.4 mg/dL (0.00-0.90) 17.8 mg/dL (0.00-0.90) Total Protein 8.9 G/DL (6.4-8.2) 8.2 G/DL (6.4-8.2) Albumin 2.4 G/DL (3.4-5.0) 2.2 G/DL (3.4-5.0) Globulin 6.5 g/dL 6.0 g/dL Albumin/Globulin Ratio 0.4 (1.0-2.7) 0.4 (1.0-2.7) Random Vancomycin Level 10.6 ug/mL White Blood Count 21.4 K/UL (4.8-10.8) Red Blood Count 2.21 M/UL (4.70-6.10) Hemoglobin 6.8 G/DL (14.2-18.0) Hematocrit 19.9 % (42.0-52.0) Mean Corpuscular Volume 90 FL (80-99) Mean Corpuscular Hemoglobin 30.8 PG (27.0-31.0) Mean Corpuscular Hemoglobin Concent 34.3 G/DL (32.0-36.0) Red Cell Distribution Width 13.9 % (11.6-14.8) Platelet Count 199 K/UL (150-450) Mean Platelet Volume 6.5 FL (6.5-10.1) Neutrophils (%) (Auto) % (45.0-75.0) Lymphocytes (%) (Auto) % (20.0-45.0) Monocytes (%) (Auto) % (1.0-10.0) Eosinophils (%) (Auto) % (0.0-3.0) Basophils (%) (Auto) % (0.0-2.0) Differential Total Cells Counted 100 Neutrophils % (Manual) 88 % (45-75) Lymphocytes % (Manual) 3 % (20-45) Monocytes % (Manual) 6 % (1-10) Eosinophils % (Manual) 3 % (0-3) Basophils % (Manual) 0 % (0-2) Band Neutrophils 0 % (0-8) Platelet Estimate Adequate Platelet Morphology Normal Hypochromasia 4+ Anisocytosis 1+ Spherocytes 3+ D-Dimer 35.20 mg/L FEU (0.00-0.49) Lactate Dehydrogenase 449 U/L (81-234) Pro-B-Type Natriuretic Peptide 5492 pg/mL (0-125) Test 06/10/19 04:32 06/10/19 08:58 White Blood Count 23.0 K/UL (4.8-10.8) Red Blood Count 3.09 M/UL (4.70-6.10) Hemoglobin 9.5 G/DL (14.2-18.0) Hematocrit 27.0 % (42.0-52.0) Mean Corpuscular Volume 88 FL (80-99) Mean Corpuscular Hemoglobin 30.8 PG (27.0-31.0) Mean Corpuscular Hemoglobin Concent 35.1 G/DL (32.0-36.0) Red Cell Distribution Width 14.1 % (11.6-14.8) Platelet Count 185 K/UL (150-450) Mean Platelet Volume 6.5 FL (6.5-10.1) Neutrophils (%) (Auto) % (45.0-75.0) Lymphocytes (%) (Auto) % (20.0-45.0) Monocytes (%) (Auto) % (1.0-10.0) Eosinophils (%) (Auto) % (0.0-3.0) Basophils (%) (Auto) % (0.0-2.0) Differential Total Cells Counted 100 Neutrophils % (Manual) 89 % (45-75) Lymphocytes % (Manual) 2 % (20-45) Monocytes % (Manual) 7 % (1-10) Eosinophils % (Manual) 2 % (0-3) Basophils % (Manual) 0 % (0-2) Band Neutrophils 0 % (0-8) Nucleated Red Blood Cells 1 /100 WBC Platelet Estimate Adequate Platelet Morphology Normal Hypochromasia 2+ Anisocytosis 1+ Sodium Level 141 MMOL/L (136-145) Potassium Level 3.7 MMOL/L (3.5-5.1) Chloride Level 100 MMOL/L (98-107) Carbon Dioxide Level 22 MMOL/L (21-32) Anion Gap 19 mmol/L (5-15) Blood Urea Nitrogen 106 mg/dL (7-18) Creatinine 11.9 MG/DL (0.55-1.30) Estimat Glomerular Filtration Rate 4.3 mL/min (>60) Glucose Level 172 MG/DL (74-106) Uric Acid 10.8 MG/DL (2.6-7.2) Calcium Level 9.1 MG/DL (8.5-10.1) Phosphorus Level 6.1 MG/DL (2.5-4.9) Magnesium Level 2.5 MG/DL (1.8-2.4) Total Bilirubin 0.4 MG/DL (0.2-1.0) Aspartate Amino Transf (AST/SGOT) 28 U/L (15-37) Alanine Aminotransferase (ALT/SGPT) 8 U/L (12-78) Alkaline Phosphatase 87 U/L (46-116) C-Reactive Protein, Quantitative 29.8 mg/dL (0.00-0.90) Pro-B-Type Natriuretic Peptide 6139 pg/mL (0-125) Total Protein 8.3 G/DL (6.4-8.2) Albumin 2.1 G/DL (3.4-5.0) Globulin 6.2 g/dL Albumin/Globulin Ratio 0.3 (1.0-2.7) Arterial Blood pH 7.347 (7.350-7.450) Arterial Blood Partial Pressure CO2 35.5 mmHg (35.0-45.0) Arterial Blood Partial Pressure O2 80.4 mmHg (75.0-100.0) Arterial Blood HCO3 19.0 mmol/L (22.0-26.0) Arterial Blood Oxygen Saturation 93.9 % (95-100) Arterial Blood Base Excess -6.0 (-2-2) Kosta Test N/a Height (Feet): 6 Height (Inches): 1.00 Weight (Pounds): 183 Objective Sp02 EP Interpretation: reviewed, normal General: no apparent distress, alert, GCS 15, non-toxic Head: normocephalic, atraumatic Heent: bilateral eye normal inspection, bilateral eye PERRL Respiratory: normal breath sounds, no respiratory distress, NRB+ Cardiovascular: regular rate, rhythm, no edema Gastrointestinal: normal inspection, soft, non-distended Rectal: deferred Musculoskeletal: normal range of motion, non-tender Neurologic: alert, motor strength/tone normal, sensory intact, responsive, speech normal Psychiatric: mood/affect normal, no suicidal/homicidal ideation Skin: Decubitus/Ulcer - See RN skin exam. : [email or web address]+ Greg Cabral MD Jun 10, 2019 12:53
[2019-06-10] MEDS: Cefepime HCl 1 GM in D5W 55 ML IVPB SCH (13:00)
--- NOTE | 2019-06-10 14:10 | Cardiac Electrophysiology PN ---
Assessment/Plan Assessment/Plan 1. Elevated troponin. Troponin on May 27 and May 30 were negative; however , on June 01, it was elevated at 0.074. Repeat 0.05. No chest pain. Due to renal failure. On Aspirin. QT 493. Plaquenil DCed. Echo EF 60% 2. Septic shock. On Levophed 2 Mcg. 3. End-stage renal disease, on hemodialysis per Dr. Cole. 4. COVID-19 positive pneumonia and lymphopenia. Fu by Dr. Ted Leyva and Dr. Mckeon. 5. MRSA carrier. 6. COPD. 7. Anemia. 8. Depression. DW RN Subjective Subjective Still in Covid isolation. On 15 liter NRB face mask and 2 Mc Levophed In SR. S /P 2 units of PRBC yesterday on HD Objective Last 24 Hour Vital Signs Date Time Temp Pulse Resp B/P (MAP) Pulse Ox O2 Delivery O2 Flow Rate FiO2 06/10/19 12:00 15.0 06/10/19 11:10 118/64 06/10/19 11:00 84 29 124/75 (91) 94 06/10/19 10:30 74 23 104/63 (77) 99 06/10/19 10:00 78 28 125/68 (87) 99 06/10/19 09:30 74 23 96/58 (71) 98 06/10/19 09:00 81 31 147/63 (91) 100 06/10/19 09:00 147/63 06/10/19 08:30 83 30 122/64 (83) 96 06/10/19 08:00 83 06/10/19 08:00 Non-Rebreather 15.0 06/10/19 08:00 125/65 06/10/19 08:00 97.7 85 31 125/65 (85) 97 06/10/19 08:00 15.0 06/10/19 07:30 77 24 110/56 (74) 98 06/10/19 07:00 125/65 06/10/19 07:00 79 24 86/56 (66) 97 06/10/19 06:45 85 29 125/69 (87) 95 06/10/19 06:30 80 27 118/56 (76) 98 06/10/19 06:15 77 24 100/57 (71) 97 06/10/19 06:00 80 26 98/65 (76) 96 06/10/19 06:00 100/57 06/10/19 05:45 90 37 129/99 (109) 94 06/10/19 05:30 80 27 104/71 (82) 97 06/10/19 05:15 78 23 94/55 (68) 98 06/10/19 05:00 78 23 95/57 (70) 99 06/10/19 05:00 94/56 06/10/19 04:45 93 36 126/69 (88) 99 06/10/19 04:30 89 36 125/65 (85) 95 06/10/19 04:15 92 38 121/65 (83) 92 06/10/19 04:00 97.9 91 41 141/87 (105) 94 06/10/19 04:00 15.0 06/10/19 04:00 121/65 06/10/19 04:00 90 06/10/19 04:00 Non-Rebreather 15.0 06/10/19 03:45 93 37 141/69 (93) 92 06/10/19 03:30 83 30 123/69 (87) 99 06/10/19 03:15 73 23 99/53 (68) 99 06/10/19 03:00 99/53 06/10/19 03:00 76 25 103/59 (74) 97 06/10/19 02:45 89 37 137/63 (87) 94 06/10/19 02:30 76 30 107/61 (76) 99 06/10/19 02:15 73 25 102/58 (73) 98 06/10/19 02:00 95/56 06/10/19 02:00 72 25 95/56 (69) 98 06/10/19 01:45 80 33 117/69 (85) 97 06/10/19 01:30 76 28 108/65 (79) 99 06/10/19 01:15 75 27 111/61 (78) 100 06/10/19 01:00 72 22 100/53 (69) 99 06/10/19 01:00 111/61 06/10/19 00:45 76 30 117/64 (81) 99 06/10/19 00:30 75 27 99/58 (72) 99 06/10/19 00:15 72 24 101/56 (71) 99 06/10/19 00:00 15.0 06/10/19 00:00 101/56 06/10/19 00:00 Non-Rebreather 15.0 06/10/19 00:00 78 06/10/19 00:00 98.0 80 26 114/68 (83) 100 06/09/19 23:45 74 23 98/57 (71) 99 06/09/19 23:30 75 25 110/59 (76) 99 06/09/19 23:15 83 29 123/64 (83) 99 06/09/19 23:00 75 24 123/63 (83) 99 06/09/19 23:00 123/64 06/09/19 22:45 78 25 126/64 (84) 99 06/09/19 22:30 75 22 100/58 (72) 100 06/09/19 22:15 75 23 115/64 (81) 99 06/09/19 22:00 79 24 119/63 (81) 97 06/09/19 22:00 115/64 06/09/19 21:45 90 33 135/72 (93) 89 06/09/19 21:30 76 23 120/64 (82) 100 06/09/19 21:15 80 25 114/62 (79) 100 06/09/19 21:00 100/60 06/09/19 21:00 97.8 79 23 130/67 (88) 100 06/09/19 20:45 82 26 136/65 (88) 99 06/09/19 20:30 73 22 119/63 (81) 100 06/09/19 20:15 77 24 124/65 (84) 100 06/09/19 20:00 15.0 06/09/19 20:00 97.9 82 26 121/71 (88) 93 06/09/19 20:00 124/65 06/09/19 20:00 Non-Rebreather 15.0 06/09/19 20:00 86 06/09/19 19:45 85 28 133/67 (89) 90 06/09/19 19:30 83 29 137/67 (90) 94 06/09/19 19:00 86 28 132/72 (92) 95 06/09/19 19:00 132/72 06/09/19 18:30 73 19 105/64 (78) 100 06/09/19 18:00 77 24 125/63 (83) 100 06/09/19 18:00 125/63 06/09/19 17:30 78 22 125/63 (83) 98 06/09/19 17:00 78 23 120/64 (82) 99 06/09/19 17:00 120/64 06/09/19 16:30 73 17 144/70 (94) 100 06/09/19 16:00 115/63 06/09/19 16:00 78 06/09/19 16:00 15.0 06/09/19 16:00 Non-Rebreather 15.0 06/09/19 16:00 97.4 76 20 115/63 (80) 100 06/09/19 15:30 71 18 113/59 (77) 100 06/09/19 15:00 74 23 109/52 (71) 100 06/09/19 15:00 109/52 06/09/19 14:30 87 28 114/61 (78) 96 Intake and Output 06/09/19 06/10/19 19:00 07:00 Intake Total 886.32 ml 312.51 ml Output Total 5 ml 30 ml Balance 881.32 ml 282.51 ml IV Total 356.32 ml 192.51 ml Blood Product 250 ml Other 280 ml 120 ml Output Urine Total 5 ml 30 ml # Bowel Movements 1 1 Laboratory Tests Test 06/10/19 04:32 06/10/19 08:58 White Blood Count 23.0 K/UL (4.8-10.8) *H Red Blood Count 3.09 M/UL (4.70-6.10) L Hemoglobin 9.5 G/DL (14.2-18.0) #L Hematocrit 27.0 % (42.0-52.0) #L Mean Corpuscular Volume 88 FL (80-99) Mean Corpuscular Hemoglobin 30.8 PG (27.0-31.0) Mean Corpuscular Hemoglobin Concent 35.1 G/DL (32.0-36.0) Red Cell Distribution Width 14.1 % (11.6-14.8) Platelet Count 185 K/UL (150-450) Mean Platelet Volume 6.5 FL (6.5-10.1) Neutrophils (%) (Auto) % (45.0-75.0) Lymphocytes (%) (Auto) % (20.0-45.0) Monocytes (%) (Auto) % (1.0-10.0) Eosinophils (%) (Auto) % (0.0-3.0) Basophils (%) (Auto) % (0.0-2.0) Differential Total Cells Counted 100 Neutrophils % (Manual) 89 % (45-75) H Lymphocytes % (Manual) 2 % (20-45) L Monocytes % (Manual) 7 % (1-10) Eosinophils % (Manual) 2 % (0-3) Basophils % (Manual) 0 % (0-2) Band Neutrophils 0 % (0-8) Nucleated Red Blood Cells 1 /100 WBC Platelet Estimate Adequate Platelet Morphology Normal Hypochromasia 2+ Anisocytosis 1+ Sodium Level 141 MMOL/L (136-145) Potassium Level 3.7 MMOL/L (3.5-5.1) Chloride Level 100 MMOL/L (98-107) Carbon Dioxide Level 22 MMOL/L (21-32) Anion Gap 19 mmol/L (5-15) H Blood Urea Nitrogen 106 mg/dL (7-18) H Creatinine 11.9 MG/DL (0.55-1.30) H Estimat Glomerular Filtration Rate 4.3 mL/min (>60) Glucose Level 172 MG/DL (74-106) H Uric Acid 10.8 MG/DL (2.6-7.2) H Calcium Level 9.1 MG/DL (8.5-10.1) Phosphorus Level 6.1 MG/DL (2.5-4.9) H Magnesium Level 2.5 MG/DL (1.8-2.4) H Total Bilirubin 0.4 MG/DL (0.2-1.0) Aspartate Amino Transf (AST/SGOT) 28 U/L (15-37) Alanine Aminotransferase (ALT/SGPT) 8 U/L (12-78) L Alkaline Phosphatase 87 U/L (46-116) C-Reactive Protein, Quantitative 29.8 mg/dL (0.00-0.90) H Pro-B-Type Natriuretic Peptide 6139 pg/mL (0-125) H Total Protein 8.3 G/DL (6.4-8.2) H Albumin 2.1 G/DL (3.4-5.0) L Globulin 6.2 g/dL Albumin/Globulin Ratio 0.3 (1.0-2.7) L Arterial Blood pH 7.347 (7.350-7.450) Arterial Blood Partial Pressure CO2 35.5 mmHg (35.0-45.0) Arterial Blood Partial Pressure O2 80.4 mmHg (75.0-100.0) Arterial Blood HCO3 19.0 mmol/L (22.0-26.0) L Arterial Blood Oxygen Saturation 93.9 % (95-100) L Arterial Blood Base Excess -6.0 (-2-2) L Kosta Test N/a Objective HEAD AND NECK: No JVD. LUNGS: Decreased breath sounds. CARDIOVASCULAR: Regular S1 and S2. Tachycardic. ABDOMEN: Soft. EXTREMITIES: No pitting edema. New Left [facility] Gio Engle MD Jun 10, 2019 14:10
[2019-06-10] MEDS ORDERED: Alteplase 100mg Inj IVPB ONE (14:45)
[2019-06-10] MEDS ORDERED: Cathflo Alteplase 2mg Inj IVP ONE (16:00)
--- NOTE | 2019-06-10 17:25 | Surgery Progress Note ---
Surgery Progress Note Subjective Procedure Performed left femoral temporary HD catheter placement Additional Comments Patient with persistent leukocytosis. On support. Hemodialysis today unfortunately flow low at 200. Cathflo ordered and placed. Objective Last 24 Hour Vital Signs Date Time Temp Pulse Resp B/P (MAP) Pulse Ox O2 Delivery O2 Flow Rate FiO2 06/10/19 16:00 104 06/10/19 15:20 104 57 124/69 (87) 86 06/10/19 15:15 98 33 102/70 (81) 90 06/10/19 15:10 101 34 117/64 (81) 91 06/10/19 15:05 99 38 116/67 (83) 90 06/10/19 15:00 97.9 104 37 113/65 (81) 87 06/10/19 14:30 117 39 122/65 (84) 86 06/10/19 14:00 93 32 118/72 (87) 87 06/10/19 13:30 79 28 111/66 (81) 95 06/10/19 13:00 78 28 120/74 (89) 96 06/10/19 13:00 76 25 110/69 (83) 96 06/10/19 12:30 79 26 118/85 (96) 96 06/10/19 12:00 Non-Rebreather 15.0 06/10/19 12:00 104 06/10/19 12:00 78 23 96/60 (72) 98 06/10/19 12:00 15.0 06/10/19 11:30 73 22 124/75 (91) 94 06/10/19 11:10 118/64 06/10/19 11:00 84 29 124/75 (91) 94 06/10/19 10:30 74 23 104/63 (77) 99 06/10/19 10:00 78 28 125/68 (87) 99 06/10/19 09:30 74 23 96/58 (71) 98 06/10/19 09:00 81 31 147/63 (91) 100 06/10/19 09:00 147/63 06/10/19 08:30 83 30 122/64 (83) 96 06/10/19 08:00 83 06/10/19 08:00 Non-Rebreather 15.0 06/10/19 08:00 125/65 06/10/19 08:00 97.7 85 31 125/65 (85) 97 06/10/19 08:00 15.0 06/10/19 07:30 77 24 110/56 (74) 98 06/10/19 07:00 125/65 06/10/19 07:00 79 24 86/56 (66) 97 06/10/19 06:45 85 29 125/69 (87) 95 06/10/19 06:30 80 27 118/56 (76) 98 06/10/19 06:15 77 24 100/57 (71) 97 06/10/19 06:00 80 26 98/65 (76) 96 06/10/19 06:00 100/57 06/10/19 05:45 90 37 129/99 (109) 94 06/10/19 05:30 80 27 104/71 (82) 97 06/10/19 05:15 78 23 94/55 (68) 98 06/10/19 05:00 78 23 95/57 (70) 99 06/10/19 05:00 94/56 06/10/19 04:45 93 36 126/69 (88) 99 06/10/19 04:30 89 36 125/65 (85) 95 06/10/19 04:15 92 38 121/65 (83) 92 06/10/19 04:00 97.9 91 41 141/87 (105) 94 06/10/19 04:00 15.0 06/10/19 04:00 121/65 06/10/19 04:00 90 06/10/19 04:00 Non-Rebreather 15.0 06/10/19 03:45 93 37 141/69 (93) 92 06/10/19 03:30 83 30 123/69 (87) 99 06/10/19 03:15 73 23 99/53 (68) 99 06/10/19 03:00 99/53 06/10/19 03:00 76 25 103/59 (74) 97 06/10/19 02:45 89 37 137/63 (87) 94 06/10/19 02:30 76 30 107/61 (76) 99 06/10/19 02:15 73 25 102/58 (73) 98 06/10/19 02:00 95/56 06/10/19 02:00 72 25 95/56 (69) 98 06/10/19 01:45 80 33 117/69 (85) 97 06/10/19 01:30 76 28 108/65 (79) 99 06/10/19 01:15 75 27 111/61 (78) 100 06/10/19 01:00 72 22 100/53 (69) 99 06/10/19 01:00 111/61 06/10/19 00:45 76 30 117/64 (81) 99 06/10/19 00:30 75 27 99/58 (72) 99 06/10/19 00:15 72 24 101/56 (71) 99 06/10/19 00:00 15.0 06/10/19 00:00 101/56 06/10/19 00:00 Non-Rebreather 15.0 06/10/19 00:00 78 06/10/19 00:00 98.0 80 26 114/68 (83) 100 06/09/19 23:45 74 23 98/57 (71) 99 06/09/19 23:30 75 25 110/59 (76) 99 06/09/19 23:15 83 29 123/64 (83) 99 06/09/19 23:00 75 24 123/63 (83) 99 06/09/19 23:00 123/64 06/09/19 22:45 78 25 126/64 (84) 99 06/09/19 22:30 75 22 100/58 (72) 100 06/09/19 22:15 75 23 115/64 (81) 99 06/09/19 22:00 79 24 119/63 (81) 97 06/09/19 22:00 115/64 06/09/19 21:45 90 33 135/72 (93) 89 06/09/19 21:30 76 23 120/64 (82) 100 06/09/19 21:15 80 25 114/62 (79) 100 06/09/19 21:00 100/60 06/09/19 21:00 97.8 79 23 130/67 (88) 100 06/09/19 20:45 82 26 136/65 (88) 99 06/09/19 20:30 73 22 119/63 (81) 100 06/09/19 20:15 77 24 124/65 (84) 100 06/09/19 20:00 15.0 06/09/19 20:00 97.9 82 26 121/71 (88) 93 06/09/19 20:00 124/65 06/09/19 20:00 Non-Rebreather 15.0 06/09/19 20:00 86 06/09/19 19:45 85 28 133/67 (89) 90 06/09/19 19:30 83 29 137/67 (90) 94 06/09/19 19:00 86 28 132/72 (92) 95 06/09/19 19:00 132/72 06/09/19 18:30 73 19 105/64 (78) 100 06/09/19 18:00 77 24 125/63 (83) 100 06/09/19 18:00 125/63 06/09/19 17:30 78 22 125/63 (83) 98 I&O Intake and Output 06/09/19 06/10/19 19:00 07:00 Intake Total 886.32 ml 312.51 ml Output Total 5 ml 30 ml Balance 881.32 ml 282.51 ml IV Total 356.32 ml 192.51 ml Blood Product 250 ml Other 280 ml 120 ml Output Urine Total 5 ml 30 ml # Bowel Movements 1 1 Dressing: other Wound: other Drains: other Cardiovascular: RSR Respiratory: decreased breath sounds Abdomen: soft, non-tender, present bowel sounds Extremities: edema, no tenderness, no cyanosis Laboratory Tests Test 06/10/19 04:32 06/10/19 08:58 White Blood Count 23.0 K/UL (4.8-10.8) *H Red Blood Count 3.09 M/UL (4.70-6.10) L Hemoglobin 9.5 G/DL (14.2-18.0) #L Hematocrit 27.0 % (42.0-52.0) #L Mean Corpuscular Volume 88 FL (80-99) Mean Corpuscular Hemoglobin 30.8 PG (27.0-31.0) Mean Corpuscular Hemoglobin Concent 35.1 G/DL (32.0-36.0) Red Cell Distribution Width 14.1 % (11.6-14.8) Platelet Count 185 K/UL (150-450) Mean Platelet Volume 6.5 FL (6.5-10.1) Neutrophils (%) (Auto) % (45.0-75.0) Lymphocytes (%) (Auto) % (20.0-45.0) Monocytes (%) (Auto) % (1.0-10.0) Eosinophils (%) (Auto) % (0.0-3.0) Basophils (%) (Auto) % (0.0-2.0) Differential Total Cells Counted 100 Neutrophils % (Manual) 89 % (45-75) H Lymphocytes % (Manual) 2 % (20-45) L Monocytes % (Manual) 7 % (1-10) Eosinophils % (Manual) 2 % (0-3) Basophils % (Manual) 0 % (0-2) Band Neutrophils 0 % (0-8) Nucleated Red Blood Cells 1 /100 WBC Platelet Estimate Adequate Platelet Morphology Normal Hypochromasia 2+ Anisocytosis 1+ Sodium Level 141 MMOL/L (136-145) Potassium Level 3.7 MMOL/L (3.5-5.1) Chloride Level 100 MMOL/L (98-107) Carbon Dioxide Level 22 MMOL/L (21-32) Anion Gap 19 mmol/L (5-15) H Blood Urea Nitrogen 106 mg/dL (7-18) H Creatinine 11.9 MG/DL (0.55-1.30) H Estimat Glomerular Filtration Rate 4.3 mL/min (>60) Glucose Level 172 MG/DL (74-106) H Uric Acid 10.8 MG/DL (2.6-7.2) H Calcium Level 9.1 MG/DL (8.5-10.1) Phosphorus Level 6.1 MG/DL (2.5-4.9) H Magnesium Level 2.5 MG/DL (1.8-2.4) H Total Bilirubin 0.4 MG/DL (0.2-1.0) Aspartate Amino Transf (AST/SGOT) 28 U/L (15-37) Alanine Aminotransferase (ALT/SGPT) 8 U/L (12-78) L Alkaline Phosphatase 87 U/L (46-116) C-Reactive Protein, Quantitative 29.8 mg/dL (0.00-0.90) H Pro-B-Type Natriuretic Peptide 6139 pg/mL (0-125) H Total Protein 8.3 G/DL (6.4-8.2) H Albumin 2.1 G/DL (3.4-5.0) L Globulin 6.2 g/dL Albumin/Globulin Ratio 0.3 (1.0-2.7) L Arterial Blood pH 7.347 (7.350-7.450) Arterial Blood Partial Pressure CO2 35.5 mmHg (35.0-45.0) Arterial Blood Partial Pressure O2 80.4 mmHg (75.0-100.0) Arterial Blood HCO3 19.0 mmol/L (22.0-26.0) L Arterial Blood Oxygen Saturation 93.9 % (95-100) L Arterial Blood Base Excess -6.0 (-2-2) L Kosta Test N/a Plan Problems: (1) Suspected COVID-19 virus infection (2) HTN (hypertension) (3) CASSANDRA (acute kidney injury) Assessment & Plan: Needs urgent HD needs access patient okay and consented see note will follow with recs new line placed discussed with team and nephrology HD line functional when checked has TPA now please use appropriately Cathflo used again this flow during dialysis on 430 was low. Will monitor may need (4) Anemia in chronic kidney disease (CKD) (5) Anemia (6) Renal failure (7) Suspected COVID-19 virus infection (8) COVID-19 Assessment & Plan: COVID + c diff negative febrile leukocytosis renal insufficiency see above cont resp care Rx as per Yaniv Clarke Jun 10, 2019 17:25
--- NOTE | 2019-06-10 20:30 | General Progress Note ---
Assessment/Plan Problem List: (1) Anemia ICD Codes: D64.9 - Anemia, unspecified SNOMED: 653594513 (2) Renal failure ICD Codes: N19 - Unspecified kidney failure SNOMED: 94433162 (3) Suspected COVID-19 virus infection ICD Codes: R68.89 - Other general symptoms and signs SNOMED: 987346085 (4) HTN (hypertension) ICD Codes: I10 - Essential (primary) hypertension SNOMED: 38903612 (5) CASSANDRA (acute kidney injury) ICD Codes: N17.9 - Acute kidney failure, unspecified SNOMED: 5046183, 15361444 (6) Anemia in chronic kidney disease (CKD) ICD Codes: N18.9 - Chronic kidney disease, unspecified; D63.1 - Anemia in chronic kidney disease SNOMED: 326053535 (7) Suspected COVID-19 virus infection ICD Codes: R68.89 - Other general symptoms and signs SNOMED: 722512123 Status: progressing Assessment/Plan: worsening renal failure requiring diaylsis cxr worsening s/p pressor pna covid positve anemia s/p fluid overload worsening leukocytosis sepsis anemia poor prognosis getting worse abx per id Subjective ROS Limited/Unobtainable: Yes Allergies: Coded Allergies: No Known Allergies (Unverified , 05/28/19) Objective Last 24 Hour Vital Signs Date Time Temp Pulse Resp B/P (MAP) Pulse Ox O2 Delivery O2 Flow Rate FiO2 06/10/19 19:15 82 27 105/61 (76) 96 06/10/19 19:00 80 26 97/56 (70) 96 06/10/19 19:00 95/55 06/10/19 18:30 80 26 95/55 (68) 06/10/19 18:00 98.7 80 27 87/57 (67) 96 06/10/19 18:00 87/57 06/10/19 17:30 87 34 92/55 (67) 06/10/19 17:15 90 33 98/56 (70) 06/10/19 17:00 97 42 99/63 (75) 06/10/19 17:00 99/63 06/10/19 16:45 93 38 115/62 (79) 96 06/10/19 16:30 86 32 93/50 (64) 96 4/30/20 16:15 90 34 86/52 (63) 97 06/10/19 16:00 104 06/10/19 16:00 Non-Rebreather 15.0 06/10/19 16:00 81 29 86/53 (64) 86 06/10/19 16:00 106/64 06/10/19 16:00 15.0 06/10/19 16:00 107 43 106/64 (78) 91 06/10/19 15:20 104 57 124/69 (87) 86 06/10/19 15:15 98 33 102/70 (81) 90 06/10/19 15:10 101 34 117/64 (81) 91 06/10/19 15:05 99 38 116/67 (83) 90 06/10/19 15:00 113/65 06/10/19 15:00 97.9 104 37 113/65 (81) 87 06/10/19 14:30 117 39 122/65 (84) 86 06/10/19 14:00 118/72 06/10/19 14:00 93 32 118/72 (87) 87 06/10/19 13:30 79 28 111/66 (81) 95 06/10/19 13:00 110/69 06/10/19 13:00 78 28 120/74 (89) 96 06/10/19 13:00 76 25 110/69 (83) 96 06/10/19 12:30 79 26 118/85 (96) 96 06/10/19 12:00 Non-Rebreather 15.0 06/10/19 12:00 104 06/10/19 12:00 96/60 06/10/19 12:00 78 23 96/60 (72) 98 06/10/19 12:00 15.0 06/10/19 11:30 73 22 124/75 (91) 94 06/10/19 11:10 118/64 06/10/19 11:00 84 29 124/75 (91) 94 06/10/19 10:30 74 23 104/63 (77) 99 06/10/19 10:00 78 28 125/68 (87) 99 06/10/19 09:30 74 23 96/58 (71) 98 06/10/19 09:00 81 31 147/63 (91) 100 06/10/19 09:00 147/63 06/10/19 08:30 83 30 122/64 (83) 96 06/10/19 08:00 83 06/10/19 08:00 Non-Rebreather 15.0 06/10/19 08:00 125/65 06/10/19 08:00 97.7 85 31 125/65 (85) 97 06/10/19 08:00 15.0 06/10/19 07:30 77 24 110/56 (74) 98 06/10/19 07:00 125/65 06/10/19 07:00 79 24 86/56 (66) 97 06/10/19 06:45 85 29 125/69 (87) 95 06/10/19 06:30 80 27 118/56 (76) 98 06/10/19 06:15 77 24 100/57 (71) 97 06/10/19 06:00 80 26 98/65 (76) 96 06/10/19 06:00 100/57 06/10/19 05:45 90 37 129/99 (109) 94 06/10/19 05:30 80 27 104/71 (82) 97 06/10/19 05:15 78 23 94/55 (68) 98 06/10/19 05:00 78 23 95/57 (70) 99 06/10/19 05:00 94/56 06/10/19 04:45 93 36 126/69 (88) 99 06/10/19 04:30 89 36 125/65 (85) 95 06/10/19 04:15 92 38 121/65 (83) 92 06/10/19 04:00 97.9 91 41 141/87 (105) 94 06/10/19 04:00 15.0 06/10/19 04:00 121/65 06/10/19 04:00 90 06/10/19 04:00 Non-Rebreather 15.0 06/10/19 03:45 93 37 141/69 (93) 92 06/10/19 03:30 83 30 123/69 (87) 99 06/10/19 03:15 73 23 99/53 (68) 99 06/10/19 03:00 99/53 06/10/19 03:00 76 25 103/59 (74) 97 06/10/19 02:45 89 37 137/63 (87) 94 06/10/19 02:30 76 30 107/61 (76) 99 06/10/19 02:15 73 25 102/58 (73) 98 06/10/19 02:00 95/56 06/10/19 02:00 72 25 95/56 (69) 98 06/10/19 01:45 80 33 117/69 (85) 97 06/10/19 01:30 76 28 108/65 (79) 99 06/10/19 01:15 75 27 111/61 (78) 100 06/10/19 01:00 72 22 100/53 (69) 99 06/10/19 01:00 111/61 06/10/19 00:45 76 30 117/64 (81) 99 06/10/19 00:30 75 27 99/58 (72) 99 06/10/19 00:15 72 24 101/56 (71) 99 06/10/19 00:00 15.0 06/10/19 00:00 101/56 06/10/19 00:00 Non-Rebreather 15.0 06/10/19 00:00 78 06/10/19 00:00 98.0 80 26 114/68 (83) 100 06/09/19 23:45 74 23 98/57 (71) 99 06/09/19 23:30 75 25 110/59 (76) 99 06/09/19 23:15 83 29 123/64 (83) 99 06/09/19 23:00 75 24 123/63 (83) 99 06/09/19 23:00 123/64 06/09/19 22:45 78 25 126/64 (84) 99 06/09/19 22:30 75 22 100/58 (72) 100 06/09/19 22:15 75 23 115/64 (81) 99 06/09/19 22:00 79 24 119/63 (81) 97 06/09/19 22:00 115/64 06/09/19 21:45 90 33 135/72 (93) 89 06/09/19 21:30 76 23 120/64 (82) 100 06/09/19 21:15 80 25 114/62 (79) 100 06/09/19 21:00 100/60 06/09/19 21:00 97.8 79 23 130/67 (88) 100 06/09/19 20:45 82 26 136/65 (88) 99 06/09/19 20:30 73 22 119/63 (81) 100 Intake and Output 06/09/19 06/10/19 19:00 07:00 Intake Total 886.32 ml 312.51 ml Output Total 5 ml 30 ml Balance 881.32 ml 282.51 ml IV Total 356.32 ml 192.51 ml Blood Product 250 ml Other 280 ml 120 ml Output Urine Total 5 ml 30 ml # Bowel Movements 1 1 Laboratory Tests 06/10/19 04:32: White Blood Count 23.0*H, Red Blood Count 3.09L, Hemoglobin 9.5#L, Hematocrit 27.0#L, Mean Corpuscular Volume 88, Mean Corpuscular Hemoglobin 30.8, Mean Corpuscular Hemoglobin Concent 35.1, Red Cell Distribution Width 14.1, Platelet Count 185, Mean Platelet Volume 6.5, Neutrophils (%) (Auto) , Lymphocytes (%) ( Auto) , Monocytes (%) (Auto) , Eosinophils (%) (Auto) , Basophils (%) (Auto) , Differential Total Cells Counted 100, Neutrophils % (Manual) 89H, Lymphocytes % (Manual) 2L, Monocytes % (Manual) 7, Eosinophils % (Manual) 2, Basophils % ( Manual) 0, Band Neutrophils 0, Nucleated Red Blood Cells 1, Platelet Estimate Adequate, Platelet Morphology Normal, Hypochromasia 2+, Anisocytosis 1+, Sodium Level 141, Potassium Level 3.7, Chloride Level 100, Carbon Dioxide Level 22, Anion Gap 19H, Blood Urea Nitrogen 106H, Creatinine 11.9H, Estimat Glomerular Filtration Rate 4.3, Glucose Level 172H, Uric Acid 10.8H, Calcium Level 9.1, Phosphorus Level 6.1H, Magnesium Level 2.5H, Total Bilirubin 0.4, Aspartate Amino Transf (AST/SGOT) 28, Alanine Aminotransferase (ALT/SGPT) 8L, Alkaline Phosphatase 87, C-Reactive Protein, Quantitative 29.8H, Pro-B-Type Natriuretic Peptide 6139H, Total Protein 8.3H, Albumin 2.1L, Globulin 6.2, Albumin/Globulin Ratio 0.3L 06/10/19 08:58: Arterial Blood pH 7.347L, Arterial Blood Partial Pressure CO2 35.5, Arterial Blood Partial Pressure O2 80.4, Arterial Blood HCO3 19.0L, Arterial Blood Oxygen Saturation 93.9L, Arterial Blood Base Excess -6.0L, Kosta Test N/a Height (Feet): 6 Height (Inches): 1.00 Weight (Pounds): 183 Karishma Mulligan MD Jun 10, 2019 20:30
[2019-06-10] MEDS: Dyna-Hex 2% Top Sol 2oz TOPIC SCH (21:02)
--- NOTE | 2019-06-10 23:54 | Pulmonology Progress Note ---
Assessment/Plan Assessment/Plan Pulmonary CCM Progress Note HPI: Patient is a 68 year old man, residential resident, admitted c/o shortness of breath, cough, noted to have Covid 19 Pneumonia. 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 Monitor cultures/viral studies PPX Hemodialysis per Renal Psychiatry following Laboratory Tests Noted: CXR: Hypoventilatory exam, interstitial changes, cardiomegaly, worseing infiltrates Subjective ROS Limited/Unobtainable: No Constitutional: Denies: fever Respiratory: Reports: dry cough, shortness of breath Psychiatric: Reports: other - refuses labs Allergies: Coded Allergies: No Known Allergies (Unverified , 05/28/19) All Systems: reviewed and negative except above Objective Last 24 Hour Vital Signs Date Time Temp Pulse Resp B/P (MAP) Pulse Ox O2 Delivery O2 Flow Rate FiO2 06/10/19 23:00 91/57 06/10/19 22:00 99/57 06/10/19 21:00 86 32 115/66 (82) 06/10/19 21:00 116/66 06/10/19 20:45 82 30 111/54 (73) 06/10/19 20:30 96 38 131/73 (92) 06/10/19 20:15 87 33 112/53 (72) 06/10/19 20:00 98.1 82 29 108/55 (72) 06/10/19 20:00 15.0 06/10/19 20:00 121/67 06/10/19 20:00 Non-Rebreather 15.0 06/10/19 19:45 88 35 121/63 (82) 06/10/19 19:38 96 Non-Rebreather 15.0 100 06/10/19 19:30 83 30 110/62 (78) 06/10/19 19:15 82 27 105/61 (76) 96 06/10/19 19:00 80 26 97/56 (70) 96 06/10/19 19:00 95/55 06/10/19 18:30 80 26 95/55 (68) 06/10/19 18:00 98.7 80 27 87/57 (67) 96 06/10/19 18:00 87/57 06/10/19 17:30 87 34 92/55 (67) 06/10/19 17:15 90 33 98/56 (70) 06/10/19 17:00 97 42 99/63 (75) 06/10/19 17:00 99/63 06/10/19 16:45 93 38 115/62 (79) 96 06/10/19 16:30 86 32 93/50 (64) 96 06/10/19 16:15 90 34 86/52 (63) 97 06/10/19 16:00 104 06/10/19 16:00 Non-Rebreather 15.0 06/10/19 16:00 81 29 86/53 (64) 86 06/10/19 16:00 106/64 06/10/19 16:00 15.0 06/10/19 16:00 107 43 106/64 (78) 91 06/10/19 15:20 104 57 124/69 (87) 86 06/10/19 15:15 98 33 102/70 (81) 90 06/10/19 15:10 101 34 117/64 (81) 91 06/10/19 15:05 99 38 116/67 (83) 90 06/10/19 15:00 113/65 06/10/19 15:00 97.9 104 37 113/65 (81) 87 06/10/19 14:30 117 39 122/65 (84) 86 06/10/19 14:00 118/72 06/10/19 14:00 93 32 118/72 (87) 87 06/10/19 13:30 79 28 111/66 (81) 95 06/10/19 13:00 110/69 06/10/19 13:00 78 28 120/74 (89) 96 06/10/19 13:00 76 25 110/69 (83) 96 06/10/19 12:30 79 26 118/85 (96) 96 06/10/19 12:00 Non-Rebreather 15.0 06/10/19 12:00 104 06/10/19 12:00 96/60 06/10/19 12:00 78 23 96/60 (72) 98 06/10/19 12:00 15.0 06/10/19 11:30 73 22 124/75 (91) 94 06/10/19 11:10 118/64 06/10/19 11:00 84 29 124/75 (91) 94 06/10/19 10:30 74 23 104/63 (77) 99 06/10/19 10:00 78 28 125/68 (87) 99 06/10/19 09:30 74 23 96/58 (71) 98 06/10/19 09:00 81 31 147/63 (91) 100 06/10/19 09:00 147/63 06/10/19 08:30 83 30 122/64 (83) 96 06/10/19 08:00 83 06/10/19 08:00 Non-Rebreather 15.0 06/10/19 08:00 125/65 06/10/19 08:00 97.7 85 31 125/65 (85) 97 06/10/19 08:00 15.0 06/10/19 07:30 77 24 110/56 (74) 98 06/10/19 07:00 125/65 06/10/19 07:00 79 24 86/56 (66) 97 06/10/19 06:45 85 29 125/69 (87) 95 06/10/19 06:30 80 27 118/56 (76) 98 06/10/19 06:15 77 24 100/57 (71) 97 06/10/19 06:00 80 26 98/65 (76) 96 06/10/19 06:00 100/57 06/10/19 05:45 90 37 129/99 (109) 94 06/10/19 05:30 80 27 104/71 (82) 97 06/10/19 05:15 78 23 94/55 (68) 98 06/10/19 05:00 78 23 95/57 (70) 99 06/10/19 05:00 94/56 06/10/19 04:45 93 36 126/69 (88) 99 06/10/19 04:30 89 36 125/65 (85) 95 06/10/19 04:15 92 38 121/65 (83) 92 06/10/19 04:00 97.9 91 41 141/87 (105) 94 06/10/19 04:00 15.0 06/10/19 04:00 121/65 06/10/19 04:00 90 06/10/19 04:00 Non-Rebreather 15.0 06/10/19 03:45 93 37 141/69 (93) 92 06/10/19 03:30 83 30 123/69 (87) 99 06/10/19 03:15 73 23 99/53 (68) 99 06/10/19 03:00 99/53 06/10/19 03:00 76 25 103/59 (74) 97 06/10/19 02:45 89 37 137/63 (87) 94 06/10/19 02:30 76 30 107/61 (76) 99 06/10/19 02:15 73 25 102/58 (73) 98 06/10/19 02:00 95/56 06/10/19 02:00 72 25 95/56 (69) 98 06/10/19 01:45 80 33 117/69 (85) 97 06/10/19 01:30 76 28 108/65 (79) 99 06/10/19 01:15 75 27 111/61 (78) 100 06/10/19 01:00 72 22 100/53 (69) 99 06/10/19 01:00 111/61 06/10/19 00:45 76 30 117/64 (81) 99 06/10/19 00:30 75 27 99/58 (72) 99 06/10/19 00:15 72 24 101/56 (71) 99 06/10/19 00:00 15.0 06/10/19 00:00 101/56 06/10/19 00:00 Non-Rebreather 15.0 06/10/19 00:00 78 06/10/19 00:00 98.0 80 26 114/68 (83) 100 Intake and Output 06/09/19 06/10/19 19:00 07:00 Intake Total 886.32 ml 312.51 ml Output Total 5 ml 30 ml Balance 881.32 ml 282.51 ml IV Total 356.32 ml 192.51 ml Blood Product 250 ml Other 280 ml 120 ml Output Urine Total 5 ml 30 ml # Bowel Movements 1 1 General Appearance: no acute distress HEENT: mucous membranes moist Abdomen: soft, non tender Extremities: no edema, other - toe amputions in quiñonez foot Skin: no rash Neurologic/Psychiatric: disoriented Laboratory Tests 06/10/19 04:32: White Blood Count 23.0*H, Red Blood Count 3.09L, Hemoglobin 9.5#L, Hematocrit 27.0#L, Mean Corpuscular Volume 88, Mean Corpuscular Hemoglobin 30.8, Mean Corpuscular Hemoglobin Concent 35.1, Red Cell Distribution Width 14.1, Platelet Count 185, Mean Platelet Volume 6.5, Neutrophils (%) (Auto) , Lymphocytes (%) ( Auto) , Monocytes (%) (Auto) , Eosinophils (%) (Auto) , Basophils (%) (Auto) , Differential Total Cells Counted 100, Neutrophils % (Manual) 89H, Lymphocytes % (Manual) 2L, Monocytes % (Manual) 7, Eosinophils % (Manual) 2, Basophils % ( Manual) 0, Band Neutrophils 0, Nucleated Red Blood Cells 1, Platelet Estimate Adequate, Platelet Morphology Normal, Hypochromasia 2+, Anisocytosis 1+, Sodium Level 141, Potassium Level 3.7, Chloride Level 100, Carbon Dioxide Level 22, Anion Gap 19H, Blood Urea Nitrogen 106H, Creatinine 11.9H, Estimat Glomerular Filtration Rate 4.3, Glucose Level 172H, Uric Acid 10.8H, Calcium Level 9.1, Phosphorus Level 6.1H, Magnesium Level 2.5H, Total Bilirubin 0.4, Aspartate Amino Transf (AST/SGOT) 28, Alanine Aminotransferase (ALT/SGPT) 8L, Alkaline Phosphatase 87, C-Reactive Protein, Quantitative 29.8H, Pro-B-Type Natriuretic Peptide 6139H, Total Protein 8.3H, Albumin 2.1L, Globulin 6.2, Albumin/Globulin Ratio 0.3L 06/10/19 08:58: Arterial Blood pH 7.347L, Arterial Blood Partial Pressure CO2 35.5, Arterial Blood Partial Pressure O2 80.4, Arterial Blood HCO3 19.0L, Arterial Blood Oxygen Saturation 93.9L, Arterial Blood Base Excess -6.0L, Kosta Test N/a Current Medications Medications (Trade) Dose Ordered Sig/Anthony Route PRN Reason Start Time Stop Time Status Last Admin Dose Admin Acetaminophen (Tylenol) 650 mg Q6H PRN ORAL MILD PAIN/Temp >100.5 06/07/19 00:00 07/07/19 00:00 Albumin Human 250 ml @ 0 mls/hr Q0M PRN IV For hypotension 06/06/19 21:15 09/04/19 12:44 Albuterol Sulfate (Proventil MDI) 2 puff Q4HRT INH 06/06/19 23:00 08/30/19 18:59 06/10/19 17:51 Allopurinol (allopurinoL) 300 mg DAILY NG 06/08/19 09:30 07/08/19 09:29 06/10/19 08:06 Cefepime HCl 1 gm/ Dextrose 55 ml @ 110 mls/hr Q24H IVPB 06/07/19 13:00 06/13/19 12:59 06/09/19 13:07 Chlorhexidine Gluconate (Michelle-Hex 2%) 1 applic DAILY@2000 TOPIC 06/07/19 20:00 09/05/19 19:59 06/10/19 21:02 Docusate Sodium (Colace) 100 mg THREE TIMES A DAY NG 06/07/19 13:00 07/07/19 12:59 06/10/19 16:43 Enoxaparin Sodium (Lovenox) 30 mg DAILY SUBQ 06/07/19 09:00 08/27/19 08:59 06/10/19 08:06 Epoetin Aftab (Epoetin Aftab(ESRD on dialysis)) 10,000 unit FRI-FRI-FRI SUBQ 06/07/19 21:00 08/31/19 20:59 06/09/19 20:45 Hydralazine HCl (Apresoline) 10 mg Q4H PRN IV Blood pressure over 160 systol 06/07/19 10:15 09/05/19 10:14 Midodrine (Pro-Amatine) 10 mg THREE TIMES A DAY NG 06/09/19 13:00 09/07/19 12:59 06/10/19 16:44 Norepinephrine Bitartrate 8 mg/ Dextrose 558 ml @ 0 mls/hr Q24H IV 06/07/19 09:00 07/07/19 08:59 06/10/19 11:10 Pantoprazole (Protonix) 40 mg Q12HR IVP 06/07/19 21:00 07/07/19 08:59 06/10/19 21:02 Salmeterol Xinafoate/ Fluticasone (Advair 100/50 Diskus) 1 puffs BID INH 06/07/19 09:00 08/27/19 08:59 06/09/19 18:49 Sevelamer Carbonate (Renvela) 1,600 mg THREE TIMES A DAY NG 06/07/19 13:00 09/05/19 12:59 06/10/19 16:44 Sodium Citrate (Bicitra) 30 ml Q8HR NG 06/07/19 14:00 06/28/19 11:59 06/10/19 21:02 Arturo Mckeon MD Jun 10, 2019 23:54
[2019-06-11] VITALS (51 sets, daily range): BP systolic 89–147; BP diastolic 52–94
--- NOTE | 2019-06-11 00:59 | Progress Note ---
DATE: 06/10/2019 SUBJECTIVE: The patient is more confused today. Mood lethargic with waxing, waning and consciousness. No agitation was noted. The patient is deteriorating. ASSESSMENT: Acute encephalopathy. PLAN: Continue psych medications. Guicho Pimentel M.D. DR: Yogesh JOB#: [id number] CC:
[2019-06-11] MEDS: Albuterol 90mcg Inhaler 8gm INH SCH ×6 (03:16→23:00)
[2019-06-11 05:34] LABS: HEMATOCRIT 28.5 % (42.0-52.0); MEAN CORPUSCULAR VOLUME 88 FL (80-99); PLATELET COUNT 172 K/UL (150-450); RED BLOOD COUNT 3.25 M/UL (4.70-6.10); RED CELL DISTRIBUTION WIDTH 13.6 % (11.6-14.8)
[2019-06-11 05:51] LABS: WHITE BLOOD COUNT 28.2 K/UL (4.8-10.8)
[2019-06-11 06:20] LABS: ALANINE AMINOTRANSFERASE 14 U/L (12-78); ALBUMIN 2.1 G/DL (3.4-5.0); ALBUMIN/GLOBULIN RATIO 0.3 (1.0-2.7); ALKALINE PHOSPHATASE 113 U/L (46-116); ANION GAP 23 mmol/L (5-15); ASPARTATE AMINO TRANSFERASE 30 U/L (15-37); BILIRUBIN,TOTAL 0.3 MG/DL (0.2-1.0); BLOOD UREA NITROGEN 86 mg/dL (7-18); CALCIUM 9.2 MG/DL (8.5-10.1); CARBON DIOXIDE 22 MMOL/L (21-32); CHLORIDE 98 MMOL/L (98-107); CREATININE 10.8 MG/DL (0.55-1.30); GAMMA GLUTAMYL TRANSPEPTIDASE 6 U/L (5-85); PHOSPHORUS 7.1 MG/DL (2.5-4.9); SODIUM 143 MMOL/L (136-145)
[2019-06-11] MEDS: Sodium Citrate 30ml NG SCH ×3 (06:21→22:05)
--- NOTE | 2019-06-11 07:15 | Hematology/Onc Progress Note ---
Assessment/Plan Assessment/Plan Assessment and Recs: # Anemia of chronic disease, likely related ot underlying kidney disease --> hgb trend 9-->8-->7.3-->7.9-->6.8->9.5-->10 --> transfuse as needed, hgb goal >7 --> no evidence of hemolysis --> peripheral smear has been reviewed --> epogen started tid ==>> transfuse w 2 units 06/08 # Leukocytosis likely related to suspected COVID-19 virus infection --> on abx and plaquenil --> trend smear as needed --> initially 4-->11-->14.5-->21-->26-->21->24--. --> pulm is aware --> on abx cefepime/vanc # Lymphopenia --> likely related to covid19 # Possible Pneumonia # Cardiomegaly # Transaminitis with Elevated AST # COPD # Chronic Kidney Disease --> per renal hd # Hypertension # Dvt ppx lovenox Appreciate consultation and ernesto Rn Subjective Neurologic/Psychiatric: Denies: no symptoms, anxiety, depressed, emotional problems, headache, numbness, paresthesia, pre-existing deficit, seizure, tingling, tremors, weakness, other Allergies: Coded Allergies: No Known Allergies (Unverified , 05/28/19) All Systems: reviewed and negative except above Subjective 06/01 extremely agitated, not allowing labs draws, no night sweats, cbc ordered 06/02 confused, restraints, on abx and plaquenil, hgb 7.9, nrb 15 L 06/03 is with nonrebreather, but not compliant, remains confused 06/05 no bleeding, labs noted, no major bleeding, otherwise comfortable 06/06 labs reviewed, no bleeding, meds noted, no night sweats, on levo and nonrebreather 06/07 labs noted, no bleeding, meds reviewed, no bleeding, wbc higher 06/08 to get 2 units prbc, no night sweats, meds reviewed 06/09 is on cefepime and vanc, labs noted, ernesto Rn, no bleeding 06/10 no major changes, labs reviewed, wbc 28k, on abx, cefepime Objective Objective Current Medications Medications (Trade) Dose Ordered Sig/Anthony Route PRN Reason Start Time Stop Time Status Last Admin Dose Admin Acetaminophen (Tylenol) 650 mg Q6H PRN ORAL MILD PAIN/Temp >100.5 06/07/19 00:00 07/07/19 00:00 Albumin Human 250 ml @ 0 mls/hr Q0M PRN IV For hypotension 06/06/19 21:15 09/04/19 12:44 Albuterol Sulfate (Proventil MDI) 2 puff Q4HRT INH 06/06/19 23:00 08/30/19 18:59 06/11/19 03:16 Allopurinol (allopurinoL) 300 mg DAILY NG 06/08/19 09:30 07/08/19 09:29 06/10/19 08:06 Cefepime HCl 1 gm/ Dextrose 55 ml @ 110 mls/hr Q24H IVPB 06/07/19 13:00 06/13/19 12:59 06/09/19 13:07 Chlorhexidine Gluconate (Michelle-Hex 2%) 1 applic DAILY@2000 TOPIC 06/07/19 20:00 09/05/19 19:59 06/10/19 21:02 Docusate Sodium (Colace) 100 mg THREE TIMES A DAY NG 06/07/19 13:00 07/07/19 12:59 06/10/19 16:43 Enoxaparin Sodium (Lovenox) 30 mg DAILY SUBQ 06/07/19 09:00 08/27/19 08:59 06/10/19 08:06 Epoetin Aftab (Epoetin Aftab(ESRD on dialysis)) 10,000 unit -FRI SUBQ 06/07/19 21:00 08/31/19 20:59 06/09/19 20:45 Hydralazine HCl (Apresoline) 10 mg Q4H PRN IV Blood pressure over 160 systol 06/07/19 10:15 09/05/19 10:14 Midodrine (Pro-Amatine) 10 mg THREE TIMES A DAY NG 06/09/19 13:00 09/07/19 12:59 06/10/19 16:44 Norepinephrine Bitartrate 8 mg/ Dextrose 558 ml @ 0 mls/hr Q24H IV 06/07/19 09:00 07/07/19 08:59 06/10/19 11:10 Pantoprazole (Protonix) 40 mg Q12HR IVP 06/07/19 21:00 07/07/19 08:59 06/10/19 21:02 Salmeterol Xinafoate/ Fluticasone (Advair 100/50 Diskus) 1 puffs BID INH 06/07/19 09:00 08/27/19 08:59 06/09/19 18:49 Sevelamer Carbonate (Renvela) 1,600 mg THREE TIMES A DAY NG 06/07/19 13:00 09/05/19 12:59 06/10/19 16:44 Sodium Citrate (Bicitra) 30 ml Q8HR NG 06/07/19 14:00 06/28/19 11:59 06/11/19 06:21 Last 24 Hour Vital Signs Date Time Temp Pulse Resp B/P (MAP) Pulse Ox O2 Delivery O2 Flow Rate FiO2 06/11/19 06:30 75 24 110/56 (74) 97 06/11/19 06:00 76 24 105/59 (74) 95 06/11/19 06:00 105/59 06/11/19 05:30 76 26 115/56 (75) 96 06/11/19 05:00 72 26 93/60 (71) 98 06/11/19 05:00 115/56 06/11/19 04:30 89 36 135/74 (94) 92 06/11/19 04:00 97.5 76 27 99/62 (74) 96 06/11/19 04:00 15.0 06/11/19 04:00 Non-Rebreather 15.0 06/11/19 04:00 99/62 06/11/19 03:30 80 33 119/73 (88) 97 06/11/19 03:02 89 06/11/19 03:00 127/66 06/11/19 03:00 87 38 127/66 (86) 91 06/11/19 02:30 81 34 112/54 (73) 96 06/11/19 02:00 77 28 90/56 (67) 96 06/11/19 02:00 112/54 06/11/19 01:30 96 44 107/64 (78) 88 06/11/19 01:00 107/64 06/11/19 01:00 80 29 90/60 (70) 90 06/11/19 00:30 88 34 89/57 (68) 91 06/11/19 00:10 105 06/11/19 00:00 89/57 06/11/19 00:00 98.3 86 32 126/67 (86) 91 06/11/19 00:00 Non-Rebreather 15.0 06/10/19 23:30 82 31 112/60 (77) 89 06/10/19 23:00 85 29 91/57 (68) 90 06/10/19 23:00 91/57 06/10/19 22:30 86 30 119/75 (90) 90 06/10/19 22:00 83 31 99/57 (71) 90 06/10/19 22:00 99/57 06/10/19 21:30 82 22 111/65 (80) 90 06/10/19 21:00 86 32 115/66 (82) 06/10/19 21:00 116/66 06/10/19 20:45 82 30 111/54 (73) 06/10/19 20:30 96 38 131/73 (92) 06/10/19 20:15 87 33 112/53 (72) 06/10/19 20:00 98.1 82 29 108/55 (72) 06/10/19 20:00 15.0 06/10/19 20:00 121/67 06/10/19 20:00 Non-Rebreather 15.0 06/10/19 20:00 85 06/10/19 19:45 88 35 121/63 (82) 06/10/19 19:38 96 Non-Rebreather 15.0 100 06/10/19 19:30 83 30 110/62 (78) 06/10/19 19:15 82 27 105/61 (76) 96 06/10/19 19:00 80 26 97/56 (70) 96 06/10/19 19:00 95/55 06/10/19 18:30 80 26 95/55 (68) 06/10/19 18:00 98.7 80 27 87/57 (67) 96 06/10/19 18:00 87/57 06/10/19 17:30 87 34 92/55 (67) 06/10/19 17:15 90 33 98/56 (70) 06/10/19 17:00 97 42 99/63 (75) 06/10/19 17:00 99/63 06/10/19 16:45 93 38 115/62 (79) 96 06/10/19 16:30 86 32 93/50 (64) 96 06/10/19 16:15 90 34 86/52 (63) 97 06/10/19 16:00 104 06/10/19 16:00 Non-Rebreather 15.0 06/10/19 16:00 81 29 86/53 (64) 86 06/10/19 16:00 106/64 06/10/19 16:00 15.0 06/10/19 16:00 107 43 106/64 (78) 91 06/10/19 15:20 104 57 124/69 (87) 86 06/10/19 15:15 98 33 102/70 (81) 90 06/10/19 15:10 101 34 117/64 (81) 91 06/10/19 15:05 99 38 116/67 (83) 90 06/10/19 15:00 113/65 06/10/19 15:00 97.9 104 37 113/65 (81) 87 06/10/19 14:30 117 39 122/65 (84) 86 06/10/19 14:00 118/72 06/10/19 14:00 93 32 118/72 (87) 87 06/10/19 13:30 79 28 111/66 (81) 95 06/10/19 13:00 110/69 06/10/19 13:00 78 28 120/74 (89) 96 06/10/19 13:00 76 25 110/69 (83) 96 06/10/19 12:30 79 26 118/85 (96) 96 06/10/19 12:00 Non-Rebreather 15.0 06/10/19 12:00 104 06/10/19 12:00 96/60 06/10/19 12:00 78 23 96/60 (72) 98 06/10/19 12:00 15.0 06/10/19 11:30 73 22 124/75 (91) 94 06/10/19 11:10 118/64 06/10/19 11:00 84 29 124/75 (91) 94 06/10/19 10:30 74 23 104/63 (77) 99 06/10/19 10:00 78 28 125/68 (87) 99 06/10/19 09:30 74 23 96/58 (71) 98 06/10/19 09:00 81 31 147/63 (91) 100 06/10/19 09:00 147/63 06/10/19 08:30 83 30 122/64 (83) 96 06/10/19 08:00 83 06/10/19 08:00 Non-Rebreather 15.0 06/10/19 08:00 125/65 06/10/19 08:00 97.7 85 31 125/65 (85) 97 06/10/19 08:00 15.0 06/10/19 07:30 77 24 110/56 (74) 98 06/10/19 07:00 125/65 06/10/19 07:00 79 24 86/56 (66) 97 06/10/19 06:45 85 29 125/69 (87) 95 06/10/19 06:30 80 27 118/56 (76) 98 06/10/19 06:15 77 24 100/57 (71) 97 06/10/19 06:00 80 26 98/65 (76) 96 06/10/19 06:00 100/57 06/10/19 05:45 90 37 129/99 (109) 94 06/10/19 05:30 80 27 104/71 (82) 97 06/10/19 05:15 78 23 94/55 (68) 98 06/10/19 05:00 78 23 95/57 (70) 99 06/10/19 05:00 94/56 06/10/19 04:45 93 36 126/69 (88) 99 06/10/19 04:30 89 36 125/65 (85) 95 06/10/19 04:15 92 38 121/65 (83) 92 06/10/19 04:00 97.9 91 41 141/87 (105) 94 06/10/19 04:00 15.0 06/10/19 04:00 121/65 06/10/19 04:00 90 06/10/19 04:00 Non-Rebreather 15.0 06/10/19 03:45 93 37 141/69 (93) 92 06/10/19 03:30 83 30 123/69 (87) 99 06/10/19 03:15 73 23 99/53 (68) 99 06/10/19 03:00 99/53 06/10/19 03:00 76 25 103/59 (74) 97 06/10/19 02:45 89 37 137/63 (87) 94 06/10/19 02:30 76 30 107/61 (76) 99 06/10/19 02:15 73 25 102/58 (73) 98 06/10/19 02:00 95/56 06/10/19 02:00 72 25 95/56 (69) 98 06/10/19 01:45 80 33 117/69 (85) 97 06/10/19 01:30 76 28 108/65 (79) 99 06/10/19 01:15 75 27 111/61 (78) 100 06/10/19 01:00 72 22 100/53 (69) 99 06/10/19 01:00 111/61 06/10/19 00:45 76 30 117/64 (81) 99 06/10/19 00:30 75 27 99/58 (72) 99 06/10/19 00:15 72 24 101/56 (71) 99 06/10/19 00:00 15.0 06/10/19 00:00 101/56 06/10/19 00:00 Non-Rebreather 15.0 06/10/19 00:00 78 06/10/19 00:00 98.0 80 26 114/68 (83) 100 06/09/19 23:45 74 23 98/57 (71) 99 06/09/19 23:30 75 25 110/59 (76) 99 06/09/19 23:15 83 29 123/64 (83) 99 06/09/19 23:00 75 24 123/63 (83) 99 06/09/19 23:00 123/64 06/09/19 22:45 78 25 126/64 (84) 99 06/09/19 22:30 75 22 100/58 (72) 100 06/09/19 22:15 75 23 115/64 (81) 99 06/09/19 22:00 79 24 119/63 (81) 97 06/09/19 22:00 115/64 06/09/19 21:45 90 33 135/72 (93) 89 06/09/19 21:30 76 23 120/64 (82) 100 06/09/19 21:15 80 25 114/62 (79) 100 06/09/19 21:00 100/60 06/09/19 21:00 97.8 79 23 130/67 (88) 100 06/09/19 20:45 82 26 136/65 (88) 99 06/09/19 20:30 73 22 119/63 (81) 100 06/09/19 20:15 77 24 124/65 (84) 100 06/09/19 20:00 15.0 06/09/19 20:00 97.9 82 26 121/71 (88) 93 06/09/19 20:00 124/65 06/09/19 20:00 Non-Rebreather 15.0 06/09/19 20:00 86 06/09/19 19:45 85 28 133/67 (89) 90 06/09/19 19:30 83 29 137/67 (90) 94 06/09/19 19:00 86 28 132/72 (92) 95 06/09/19 19:00 132/72 06/09/19 18:30 73 19 105/64 (78) 100 06/09/19 18:00 77 24 125/63 (83) 100 06/09/19 18:00 125/63 06/09/19 17:30 78 22 125/63 (83) 98 06/09/19 17:00 78 23 120/64 (82) 99 06/09/19 17:00 120/64 06/09/19 16:30 73 17 144/70 (94) 100 06/09/19 16:00 115/63 06/09/19 16:00 78 06/09/19 16:00 15.0 06/09/19 16:00 Non-Rebreather 15.0 06/09/19 16:00 97.4 76 20 115/63 (80) 100 06/09/19 15:30 71 18 113/59 (77) 100 06/09/19 15:00 74 23 109/52 (71) 100 06/09/19 15:00 109/52 06/09/19 14:30 87 28 114/61 (78) 96 06/09/19 14:00 109/55 06/09/19 14:00 76 23 109/55 (73) 100 06/09/19 13:30 86 35 128/67 (87) 97 06/09/19 13:00 105/67 06/09/19 13:00 73 25 105/67 (80) 100 06/09/19 12:30 81 31 115/65 (82) 99 06/09/19 12:00 97.8 74 25 91/55 (67) 100 06/09/19 12:00 Non-Rebreather 15.0 06/09/19 12:00 79 06/09/19 12:00 110/58 06/09/19 12:00 15.0 06/09/19 11:30 80 27 89/54 (66) 98 06/09/19 11:00 85 31 120/61 (80) 99 06/09/19 11:00 120/61 06/09/19 10:30 73 22 108/56 (73) 100 06/09/19 10:00 120/65 06/09/19 10:00 88 35 120/65 (83) 97 06/09/19 09:30 73 24 102/51 (68) 100 06/09/19 09:00 80 31 98/57 (71) 99 06/09/19 09:00 98/57 06/09/19 08:30 82 28 116/65 (82) 98 06/09/19 08:00 98.9 70 22 98/53 (68) 100 06/09/19 08:00 15.0 06/09/19 08:00 98/53 06/09/19 08:00 Non-Rebreather 15.0 06/09/19 07:49 73 06/09/19 07:30 72 22 103/52 (69) 100 Intake and Output 06/10/19 06/11/19 19:00 07:00 Intake Total 343.40 ml 276.21 ml Output Total 1520 ml 20 ml Balance -1176.60 ml 256.21 ml IV Total 183.40 ml 276.21 ml Other 160 ml Output Urine Total 20 ml 20 ml Hemodialysis UF 1500 ml # Bowel Movements 1 2 Labs Test 06/08/19 19:20 06/09/19 04:20 06/10/19 04:32 06/10/19 08:58 Random Vancomycin Level 10.6 ug/mL White Blood Count 21.4 K/UL (4.8-10.8) 23.0 K/UL (4.8-10.8) Red Blood Count 2.21 M/UL (4.70-6.10) 3.09 M/UL (4.70-6.10) Hemoglobin 6.8 G/DL (14.2-18.0) 9.5 G/DL (14.2-18.0) Hematocrit 19.9 % (42.0-52.0) 27.0 % (42.0-52.0) Mean Corpuscular Volume 90 FL (80-99) 88 FL (80-99) Mean Corpuscular Hemoglobin 30.8 PG (27.0-31.0) 30.8 PG (27.0-31.0) Mean Corpuscular Hemoglobin Concent 34.3 G/DL (32.0-36.0) 35.1 G/DL (32.0-36.0) Red Cell Distribution Width 13.9 % (11.6-14.8) 14.1 % (11.6-14.8) Platelet Count 199 K/UL (150-450) 185 K/UL (150-450) Mean Platelet Volume 6.5 FL (6.5-10.1) 6.5 FL (6.5-10.1) Neutrophils (%) (Auto) % (45.0-75.0) % (45.0-75.0) Lymphocytes (%) (Auto) % (20.0-45.0) % (20.0-45.0) Monocytes (%) (Auto) % (1.0-10.0) % (1.0-10.0) Eosinophils (%) (Auto) % (0.0-3.0) % (0.0-3.0) Basophils (%) (Auto) % (0.0-2.0) % (0.0-2.0) Differential Total Cells Counted 100 100 Neutrophils % (Manual) 88 % (45-75) 89 % (45-75) Lymphocytes % (Manual) 3 % (20-45) 2 % (20-45) Monocytes % (Manual) 6 % (1-10) 7 % (1-10) Eosinophils % (Manual) 3 % (0-3) 2 % (0-3) Basophils % (Manual) 0 % (0-2) 0 % (0-2) Band Neutrophils 0 % (0-8) 0 % (0-8) Platelet Estimate Adequate Adequate Platelet Morphology Normal Normal Hypochromasia 4+ 2+ Anisocytosis 1+ 1+ Spherocytes 3+ D-Dimer 35.20 mg/L FEU (0.00-0.49) Sodium Level 139 MMOL/L (136-145) 141 MMOL/L (136-145) Potassium Level 3.6 MMOL/L (3.5-5.1) 3.7 MMOL/L (3.5-5.1) Chloride Level 99 MMOL/L (98-107) 100 MMOL/L (98-107) Carbon Dioxide Level 21 MMOL/L (21-32) 22 MMOL/L (21-32) Anion Gap 20 mmol/L (5-15) 19 mmol/L (5-15) Blood Urea Nitrogen 91 mg/dL (7-18) 106 mg/dL (7-18) Creatinine 10.6 MG/DL (0.55-1.30) 11.9 MG/DL (0.55-1.30) Estimat Glomerular Filtration Rate 4.9 mL/min (>60) 4.3 mL/min (>60) Glucose Level 214 MG/DL (74-106) 172 MG/DL (74-106) Uric Acid 9.8 MG/DL (2.6-7.2) 10.8 MG/DL (2.6-7.2) Calcium Level 8.7 MG/DL (8.5-10.1) 9.1 MG/DL (8.5-10.1) Phosphorus Level 6.1 MG/DL (2.5-4.9) 6.1 MG/DL (2.5-4.9) Magnesium Level 2.4 MG/DL (1.8-2.4) 2.5 MG/DL (1.8-2.4) Total Bilirubin 0.3 MG/DL (0.2-1.0) 0.4 MG/DL (0.2-1.0) Gamma Glutamyl Transpeptidase 3 U/L (5-85) Aspartate Amino Transf (AST/SGOT) 28 U/L (15-37) 28 U/L (15-37) Alanine Aminotransferase (ALT/SGPT) 11 U/L (12-78) 8 U/L (12-78) Alkaline Phosphatase 78 U/L (46-116) 87 U/L (46-116) Lactate Dehydrogenase 449 U/L (81-234) C-Reactive Protein, Quantitative 17.8 mg/dL (0.00-0.90) 29.8 mg/dL (0.00-0.90) Pro-B-Type Natriuretic Peptide 5492 pg/mL (0-125) 6139 pg/mL (0-125) Total Protein 8.2 G/DL (6.4-8.2) 8.3 G/DL (6.4-8.2) Albumin 2.2 G/DL (3.4-5.0) 2.1 G/DL (3.4-5.0) Globulin 6.0 g/dL 6.2 g/dL Albumin/Globulin Ratio 0.4 (1.0-2.7) 0.3 (1.0-2.7) Nucleated Red Blood Cells 1 /100 WBC Arterial Blood pH 7.347 (7.350-7.450) Arterial Blood Partial Pressure CO2 35.5 mmHg (35.0-45.0) Arterial Blood Partial Pressure O2 80.4 mmHg (75.0-100.0) Arterial Blood HCO3 19.0 mmol/L (22.0-26.0) Arterial Blood Oxygen Saturation 93.9 % (95-100) Arterial Blood Base Excess -6.0 (-2-2) Kosta Test N/a Test 06/11/19 03:34 White Blood Count 28.2 K/UL (4.8-10.8) Red Blood Count 3.25 M/UL (4.70-6.10) Hemoglobin 10.0 G/DL (14.2-18.0) Hematocrit 28.5 % (42.0-52.0) Mean Corpuscular Volume 88 FL (80-99) Mean Corpuscular Hemoglobin 30.7 PG (27.0-31.0) Mean Corpuscular Hemoglobin Concent 35.0 G/DL (32.0-36.0) Red Cell Distribution Width 13.6 % (11.6-14.8) Platelet Count 172 K/UL (150-450) Mean Platelet Volume 7.4 FL (6.5-10.1) Neutrophils (%) (Auto) % (45.0-75.0) Lymphocytes (%) (Auto) % (20.0-45.0) Monocytes (%) (Auto) % (1.0-10.0) Eosinophils (%) (Auto) % (0.0-3.0) Basophils (%) (Auto) % (0.0-2.0) Sodium Level 143 MMOL/L (136-145) Potassium Level 4.0 MMOL/L (3.5-5.1) Chloride Level 98 MMOL/L (98-107) Carbon Dioxide Level 22 MMOL/L (21-32) Anion Gap 23 mmol/L (5-15) Blood Urea Nitrogen 86 mg/dL (7-18) Creatinine 10.8 MG/DL (0.55-1.30) Estimat Glomerular Filtration Rate 4.8 mL/min (>60) Glucose Level 178 MG/DL (74-106) Uric Acid 8.5 MG/DL (2.6-7.2) Calcium Level 9.2 MG/DL (8.5-10.1) Phosphorus Level 7.1 MG/DL (2.5-4.9) Magnesium Level 2.6 MG/DL (1.8-2.4) Total Bilirubin 0.3 MG/DL (0.2-1.0) Gamma Glutamyl Transpeptidase 6 U/L (5-85) Aspartate Amino Transf (AST/SGOT) 30 U/L (15-37) Alanine Aminotransferase (ALT/SGPT) 14 U/L (12-78) Alkaline Phosphatase 113 U/L (46-116) Pro-B-Type Natriuretic Peptide 7775 pg/mL (0-125) Total Protein 8.6 G/DL (6.4-8.2) Albumin 2.1 G/DL (3.4-5.0) Globulin 6.5 g/dL Albumin/Globulin Ratio 0.3 (1.0-2.7) Height (Feet): 6 Height (Inches): 1.00 Weight (Pounds): 180 Objective Sp02 EP Interpretation: reviewed, normal General: no apparent distress, alert, GCS 15, non-toxic Head: normocephalic, atraumatic Heent: bilateral eye normal inspection, bilateral eye PERRL Respiratory: normal breath sounds, no respiratory distress, NRB+ Cardiovascular: regular rate, rhythm, no edema Gastrointestinal: normal inspection, soft, non-distended Rectal: deferred Musculoskeletal: normal range of motion, non-tender Neurologic: alert, motor strength/tone normal, sensory intact, responsive, speech normal Psychiatric: mood/affect normal, no suicidal/homicidal ideation Skin: Decubitus/Ulcer - See RN skin exam. : jamaal+ Greg Cabral MD June 11, 2019 07:15
[2019-06-11] MEDS: Docusate 100mg/10ml Liq NG SCH ×3 (09:00→17:31)
--- NOTE | 2019-06-11 09:07 | Nephrology Progress Note ---
Assessment/Plan Problem List: (1) CASSANDRA (acute kidney injury) (2) Anemia in chronic kidney disease (CKD) (3) HTN (hypertension) (4) COVID-19 Assessment Acute renal failure most likely superimposed on chronic kidney disease Suspected COVID-19 virus infection Possible Pneumonia, lymphopenia, elevated AST Cardiomegaly, possible CHF COPD Hypertension Anemia, most likely related to chronic kidney disease Plan Positive for COVID 19 Discussed with SHANIQUE Yuen Patient received dialysis yesterday however renal parameters still not satisfactory Will order dialysis again today June 10 Blood pressure better maintained however still on pressors Continue per consultants Previously patient received dialysis last evening June 05, next dialysis June 07 which was incomplete due to patient's hypotension Will start on midodrine for blood pressure support. Meanwhile continue other pressors as needed Previously Patient is doing poorly, septic, white blood cells are rising, Hypotension somewhat improved We will keep n.p.o. , NG tube for medications, and change medication to IV as needed Patient remains full code Monitor vancomycin level Previously: Patient pulled out his femoral catheter yesterday June 03 which was reinserted by Dr. Mast Patient scheduled for dialysis again June 04, which again was not done due to dialysis nurse citing catheter malfunction Meanwhile continue management per ID, pulmonary , and psych. Meanwhile white blood cell count is rising. Patient blood pressure borderline low. Will check ABG Previously May 31 : I believe patient need dialysis treatment He however needs to competency assessment if can make decisions or not I will communicate with Dr. Mulligan Previously: Per pulmonary and ID advice Adjust blood pressure medication Renal diet Anemia work-up 2D echocardiogram refused Kidney ultrasound refused Julse catheter Urine studies Per orders Subjective ROS Limited/Unobtainable: No Constitutional: Reports: malaise Objective Objective Last 24 Hour Vital Signs Date Time Temp Pulse Resp B/P (MAP) Pulse Ox O2 Delivery O2 Flow Rate FiO2 06/11/19 07:15 94 Non-Rebreather 15.0 100 06/11/19 07:00 129/70 06/11/19 07:00 94 35 129/70 (89) 90 06/11/19 06:30 75 24 110/56 (74) 97 06/11/19 06:00 76 24 105/59 (74) 95 06/11/19 06:00 105/59 06/11/19 05:30 76 26 115/56 (75) 96 06/11/19 05:00 72 26 93/60 (71) 98 06/11/19 05:00 115/56 06/11/19 04:30 89 36 135/74 (94) 92 06/11/19 04:00 97.5 76 27 99/62 (74) 96 06/11/19 04:00 15.0 06/11/19 04:00 Non-Rebreather 15.0 06/11/19 04:00 99/62 06/11/19 03:30 80 33 119/73 (88) 97 06/11/19 03:02 89 06/11/19 03:00 127/66 06/11/19 03:00 87 38 127/66 (86) 91 06/11/19 02:30 81 34 112/54 (73) 96 06/11/19 02:00 77 28 90/56 (67) 96 06/11/19 02:00 112/54 06/11/19 01:30 96 44 107/64 (78) 88 06/11/19 01:00 107/64 06/11/19 01:00 80 29 90/60 (70) 90 06/11/19 00:30 88 34 89/57 (68) 91 06/11/19 00:10 105 06/11/19 00:00 89/57 06/11/19 00:00 98.3 86 32 126/67 (86) 91 06/11/19 00:00 Non-Rebreather 15.0 06/10/19 23:30 82 31 112/60 (77) 89 06/10/19 23:00 85 29 91/57 (68) 90 06/10/19 23:00 91/57 06/10/19 22:30 86 30 119/75 (90) 90 06/10/19 22:00 83 31 99/57 (71) 90 06/10/19 22:00 99/57 06/10/19 21:30 82 22 111/65 (80) 90 06/10/19 21:00 86 32 115/66 (82) 06/10/19 21:00 116/66 06/10/19 20:45 82 30 111/54 (73) 06/10/19 20:30 96 38 131/73 (92) 06/10/19 20:15 87 33 112/53 (72) 06/10/19 20:00 98.1 82 29 108/55 (72) 06/10/19 20:00 15.0 06/10/19 20:00 121/67 06/10/19 20:00 Non-Rebreather 15.0 06/10/19 20:00 85 06/10/19 19:45 88 35 121/63 (82) 06/10/19 19:38 96 Non-Rebreather 15.0 100 06/10/19 19:30 83 30 110/62 (78) 06/10/19 19:15 82 27 105/61 (76) 96 06/10/19 19:00 80 26 97/56 (70) 96 06/10/19 19:00 95/55 06/10/19 18:30 80 26 95/55 (68) 06/10/19 18:00 98.7 80 27 87/57 (67) 96 06/10/19 18:00 87/57 06/10/19 17:30 87 34 92/55 (67) 06/10/19 17:15 90 33 98/56 (70) 06/10/19 17:00 97 42 99/63 (75) 06/10/19 17:00 99/63 06/10/19 16:45 93 38 115/62 (79) 96 06/10/19 16:30 86 32 93/50 (64) 96 06/10/19 16:15 90 34 86/52 (63) 97 06/10/19 16:00 104 06/10/19 16:00 Non-Rebreather 15.0 06/10/19 16:00 81 29 86/53 (64) 86 06/10/19 16:00 106/64 06/10/19 16:00 15.0 06/10/19 16:00 107 43 106/64 (78) 91 06/10/19 15:20 104 57 124/69 (87) 86 06/10/19 15:15 98 33 102/70 (81) 90 06/10/19 15:10 101 34 117/64 (81) 91 06/10/19 15:05 99 38 116/67 (83) 90 06/10/19 15:00 113/65 06/10/19 15:00 97.9 104 37 113/65 (81) 87 06/10/19 14:30 117 39 122/65 (84) 86 06/10/19 14:00 118/72 06/10/19 14:00 93 32 118/72 (87) 87 06/10/19 13:30 79 28 111/66 (81) 95 06/10/19 13:00 110/69 06/10/19 13:00 78 28 120/74 (89) 96 06/10/19 13:00 76 25 110/69 (83) 96 06/10/19 12:30 79 26 118/85 (96) 96 06/10/19 12:00 Non-Rebreather 15.0 06/10/19 12:00 104 06/10/19 12:00 96/60 06/10/19 12:00 78 23 96/60 (72) 98 06/10/19 12:00 15.0 06/10/19 11:30 73 22 124/75 (91) 94 06/10/19 11:10 118/64 06/10/19 11:00 84 29 124/75 (91) 94 06/10/19 10:30 74 23 104/63 (77) 99 06/10/19 10:00 78 28 125/68 (87) 99 06/10/19 09:30 74 23 96/58 (71) 98 Intake and Output 06/10/19 06/11/19 19:00 07:00 Intake Total 343.40 ml 301.32 ml Output Total 1520 ml 20 ml Balance -1176.60 ml 281.32 ml IV Total 183.40 ml 301.32 ml Other 160 ml Output Urine Total 20 ml 20 ml Hemodialysis UF 1500 ml # Bowel Movements 1 2 Laboratory Tests 06/11/19 03:34: White Blood Count 28.2*H, Red Blood Count 3.25L, Hemoglobin 10.0L, Hematocrit 28.5L, Mean Corpuscular Volume 88, Mean Corpuscular Hemoglobin 30.7, Mean Corpuscular Hemoglobin Concent 35.0, Red Cell Distribution Width 13.6, Platelet Count 172, Mean Platelet Volume 7.4, Neutrophils (%) (Auto) , Lymphocytes (%) ( Auto) , Monocytes (%) (Auto) , Eosinophils (%) (Auto) , Basophils (%) (Auto) , Differential Total Cells Counted 100, Neutrophils % (Manual) 84H, Lymphocytes % (Manual) 3L, Monocytes % (Manual) 2, Eosinophils % (Manual) 1, Basophils % ( Manual) 0, Metamyelocytes % 4H, Myelocytes % 4H, Band Neutrophils 2, Platelet Estimate Adequate, Platelet Morphology Normal, Sodium Level 143, Potassium Level 4.0, Chloride Level 98, Carbon Dioxide Level 22, Anion Gap 23H, Blood Urea Nitrogen 86H, Creatinine 10.8H, Estimat Glomerular Filtration Rate 4.8, Glucose Level 178H, Uric Acid 8.5H, Calcium Level 9.2, Phosphorus Level 7.1H, Magnesium Level 2.6H, Total Bilirubin 0.3, Gamma Glutamyl Transpeptidase 6, Aspartate Amino Transf (AST/SGOT) 30, Alanine Aminotransferase (ALT/SGPT) 14, Alkaline Phosphatase 113, C-Reactive Protein, Quantitative [Pending], Pro-B- Type Natriuretic Peptide 7775H, Total Protein 8.6H, Albumin 2.1L, Globulin 6.5, Albumin/Globulin Ratio 0.3L Height (Feet): 6 Height (Inches): 1.00 Weight (Pounds): 180 General Appearance: no apparent distress, lethargic EENT: other - On nonrebreather mask Cardiovascular: other - Variable rate Respiratory/Chest: decreased breath sounds Abdomen: distended Objective No change Mic Cole MD June 11, 2019 09:07
[2019-06-11] MEDS: Pantoprazole Inj IVP SCH ×2 (09:12→20:45)
[2019-06-11] MEDS: Midodrine 10mg tab NG SCH ×3 (09:13→17:31)
[2019-06-11] MEDS: Renvela 800mg Pkt NG SCH ×3 (09:13→17:31)
[2019-06-11] MEDS: Wixela 100/50 Inhaler - 60 dose INH SCH ×2 (09:14→17:31)
[2019-06-11] MEDS: Enoxaparin 30mg Inj SUBQ SCH (09:14)
--- NOTE | 2019-06-11 10:02 | Infectious Diseases Prog Note ---
Assessment/Plan Assessment/Plan IMPRESSION: 1. COVID19 pneumonia Positive: 05/27, 05/31 , 06/05 2. MRSA carrier. 3. Chronic kidney disease , end-stage renal disease. 4. COPD. 5. Hypertension. 6. Anemia. 7. Hypothyroidism. 8. Hyperlipidemia. 9. Major depression. 10. Leukocytosis 11. Hypotension 12. Hepatitis C 13. Hyperuricemia 14. Diarrhea RECOMMENDATIONS: Discontinue Cefepime If diarrhea persists, will check C. difficile test Finished hydroxychloroquine. Will f/u COVID19 test Subjective ROS Limited/Unobtainable: Yes Gastrointestinal/Abdominal: Reports: diarrhea, other - colace was stopped Neurologic: Reports: confusion, other - on restraint Allergies: Coded Allergies: No Known Allergies (Unverified , 05/28/19) Objective Vital Signs Last 24 Hour Vital Signs Date Time Temp Pulse Resp B/P (MAP) Pulse Ox O2 Delivery O2 Flow Rate FiO2 06/11/19 07:15 94 Non-Rebreather 15.0 100 06/11/19 07:00 129/70 06/11/19 07:00 94 35 129/70 (89) 90 06/11/19 06:30 75 24 110/56 (74) 97 06/11/19 06:00 76 24 105/59 (74) 95 06/11/19 06:00 105/59 06/11/19 05:30 76 26 115/56 (75) 96 06/11/19 05:00 72 26 93/60 (71) 98 06/11/19 05:00 115/56 06/11/19 04:30 89 36 135/74 (94) 92 06/11/19 04:00 97.5 76 27 99/62 (74) 96 06/11/19 04:00 15.0 06/11/19 04:00 Non-Rebreather 15.0 06/11/19 04:00 99/62 06/11/19 03:30 80 33 119/73 (88) 97 06/11/19 03:02 89 06/11/19 03:00 127/66 06/11/19 03:00 87 38 127/66 (86) 91 06/11/19 02:30 81 34 112/54 (73) 96 06/11/19 02:00 77 28 90/56 (67) 96 06/11/19 02:00 112/54 06/11/19 01:30 96 44 107/64 (78) 88 06/11/19 01:00 107/64 06/11/19 01:00 80 29 90/60 (70) 90 06/11/19 00:30 88 34 89/57 (68) 91 06/11/19 00:10 105 06/11/19 00:00 89/57 06/11/19 00:00 98.3 86 32 126/67 (86) 91 06/11/19 00:00 Non-Rebreather 15.0 06/10/19 23:30 82 31 112/60 (77) 89 06/10/19 23:00 85 29 91/57 (68) 90 06/10/19 23:00 91/57 06/10/19 22:30 86 30 119/75 (90) 90 06/10/19 22:00 83 31 99/57 (71) 90 06/10/19 22:00 99/57 06/10/19 21:30 82 22 111/65 (80) 90 06/10/19 21:00 86 32 115/66 (82) 06/10/19 21:00 116/66 06/10/19 20:45 82 30 111/54 (73) 06/10/19 20:30 96 38 131/73 (92) 06/10/19 20:15 87 33 112/53 (72) 06/10/19 20:00 98.1 82 29 108/55 (72) 06/10/19 20:00 15.0 06/10/19 20:00 121/67 06/10/19 20:00 Non-Rebreather 15.0 06/10/19 20:00 85 06/10/19 19:45 88 35 121/63 (82) 06/10/19 19:38 96 Non-Rebreather 15.0 100 06/10/19 19:30 83 30 110/62 (78) 06/10/19 19:15 82 27 105/61 (76) 96 06/10/19 19:00 80 26 97/56 (70) 96 06/10/19 19:00 95/55 06/10/19 18:30 80 26 95/55 (68) 06/10/19 18:00 98.7 80 27 87/57 (67) 96 06/10/19 18:00 87/57 06/10/19 17:30 87 34 92/55 (67) 06/10/19 17:15 90 33 98/56 (70) 06/10/19 17:00 97 42 99/63 (75) 06/10/19 17:00 99/63 06/10/19 16:45 93 38 115/62 (79) 96 06/10/19 16:30 86 32 93/50 (64) 96 06/10/19 16:15 90 34 86/52 (63) 97 06/10/19 16:00 104 06/10/19 16:00 Non-Rebreather 15.0 06/10/19 16:00 81 29 86/53 (64) 86 06/10/19 16:00 106/64 06/10/19 16:00 15.0 06/10/19 16:00 107 43 106/64 (78) 91 06/10/19 15:20 104 57 124/69 (87) 86 06/10/19 15:15 98 33 102/70 (81) 90 06/10/19 15:10 101 34 117/64 (81) 91 06/10/19 15:05 99 38 116/67 (83) 90 06/10/19 15:00 113/65 06/10/19 15:00 97.9 104 37 113/65 (81) 87 06/10/19 14:30 117 39 122/65 (84) 86 06/10/19 14:00 118/72 06/10/19 14:00 93 32 118/72 (87) 87 06/10/19 13:30 79 28 111/66 (81) 95 06/10/19 13:00 110/69 06/10/19 13:00 78 28 120/74 (89) 96 06/10/19 13:00 76 25 110/69 (83) 96 06/10/19 12:30 79 26 118/85 (96) 96 06/10/19 12:00 Non-Rebreather 15.0 06/10/19 12:00 104 06/10/19 12:00 96/60 06/10/19 12:00 78 23 96/60 (72) 98 06/10/19 12:00 15.0 4/30/20 11:30 73 22 124/75 (91) 94 06/10/19 11:10 118/64 06/10/19 11:00 84 29 124/75 (91) 94 06/10/19 10:30 74 23 104/63 (77) 99 06/10/19 10:00 78 28 125/68 (87) 99 Height (Feet): 6 Height (Inches): 1.00 Weight (Pounds): 180 HEENT: mucous membranes moist Respiratory/Chest: other - oxygen by nsal cannula Cardiovascular: normal rate Extremities: no edema Neurologic/Psychiatric: disoriented Laboratory Tests Test 06/11/19 03:34 White Blood Count 28.2 K/UL (4.8-10.8) *H Red Blood Count 3.25 M/UL (4.70-6.10) L Hemoglobin 10.0 G/DL (14.2-18.0) L Hematocrit 28.5 % (42.0-52.0) L Mean Corpuscular Volume 88 FL (80-99) Mean Corpuscular Hemoglobin 30.7 PG (27.0-31.0) Mean Corpuscular Hemoglobin Concent 35.0 G/DL (32.0-36.0) Red Cell Distribution Width 13.6 % (11.6-14.8) Platelet Count 172 K/UL (150-450) Mean Platelet Volume 7.4 FL (6.5-10.1) Neutrophils (%) (Auto) % (45.0-75.0) Lymphocytes (%) (Auto) % (20.0-45.0) Monocytes (%) (Auto) % (1.0-10.0) Eosinophils (%) (Auto) % (0.0-3.0) Basophils (%) (Auto) % (0.0-2.0) Differential Total Cells Counted 100 Neutrophils % (Manual) 84 % (45-75) H Lymphocytes % (Manual) 3 % (20-45) L Monocytes % (Manual) 2 % (1-10) Eosinophils % (Manual) 1 % (0-3) Basophils % (Manual) 0 % (0-2) Metamyelocytes % 4 % (0-0) H Myelocytes % 4 % (0-0) H Band Neutrophils 2 % (0-8) Platelet Estimate Adequate Platelet Morphology Normal Sodium Level 143 MMOL/L (136-145) Potassium Level 4.0 MMOL/L (3.5-5.1) Chloride Level 98 MMOL/L (98-107) Carbon Dioxide Level 22 MMOL/L (21-32) Anion Gap 23 mmol/L (5-15) H Blood Urea Nitrogen 86 mg/dL (7-18) H Creatinine 10.8 MG/DL (0.55-1.30) H Estimat Glomerular Filtration Rate 4.8 mL/min (>60) Glucose Level 178 MG/DL (74-106) H Uric Acid 8.5 MG/DL (2.6-7.2) H Calcium Level 9.2 MG/DL (8.5-10.1) Phosphorus Level 7.1 MG/DL (2.5-4.9) H Magnesium Level 2.6 MG/DL (1.8-2.4) H Total Bilirubin 0.3 MG/DL (0.2-1.0) Gamma Glutamyl Transpeptidase 6 U/L (5-85) Aspartate Amino Transf (AST/SGOT) 30 U/L (15-37) Alanine Aminotransferase (ALT/SGPT) 14 U/L (12-78) Alkaline Phosphatase 113 U/L (46-116) C-Reactive Protein, Quantitative Pending Pro-B-Type Natriuretic Peptide 7775 pg/mL (0-125) H Total Protein 8.6 G/DL (6.4-8.2) H Albumin 2.1 G/DL (3.4-5.0) L Globulin 6.5 g/dL Albumin/Globulin Ratio 0.3 (1.0-2.7) L Current Medications Medications (Trade) Dose Ordered Sig/Anthony Route PRN Reason Start Time Stop Time Status Last Admin Dose Admin Acetaminophen (Tylenol) 650 mg Q6H PRN ORAL MILD PAIN/Temp >100.5 06/07/19 00:00 07/07/19 00:00 Albumin Human 250 ml @ 0 mls/hr Q0M PRN IV For hypotension 06/06/19 21:15 09/04/19 12:44 Albuterol Sulfate (Proventil MDI) 2 puff Q4HRT INH 06/06/19 23:00 08/30/19 18:59 06/11/19 09:15 Allopurinol (allopurinoL) 300 mg DAILY NG 06/08/19 09:30 07/08/19 09:29 06/11/19 09:19 Cefepime HCl 1 gm/ Dextrose 55 ml @ 110 mls/hr Q24H IVPB 06/07/19 13:00 06/13/19 12:59 06/09/19 13:07 Chlorhexidine Gluconate (Michelle-Hex 2%) 1 applic DAILY@2000 TOPIC 06/07/19 20:00 09/05/19 19:59 06/10/19 21:02 Docusate Sodium (Colace) 100 mg THREE TIMES A DAY NG 06/07/19 13:00 07/07/19 12:59 06/10/19 16:43 Enoxaparin Sodium (Lovenox) 30 mg DAILY SUBQ 06/07/19 09:00 08/27/19 08:59 06/11/19 09:14 Epoetin Aftab (Epoetin Aftab(ESRD on dialysis)) 10,000 unit SUBQ 06/07/19 21:00 08/31/19 20:59 06/09/19 20:45 Hydralazine HCl (Apresoline) 10 mg Q4H PRN IV Blood pressure over 160 systol 06/07/19 10:15 09/05/19 10:14 Midodrine (Pro-Amatine) 10 mg THREE TIMES A DAY NG 06/09/19 13:00 09/07/19 12:59 06/11/19 09:13 Norepinephrine Bitartrate 8 mg/ Dextrose 558 ml @ 0 mls/hr Q24H IV 06/07/19 09:00 07/07/19 08:59 06/10/19 11:10 Pantoprazole (Protonix) 40 mg Q12HR IVP 06/07/19 21:00 07/07/19 08:59 06/11/19 09:12 Salmeterol Xinafoate/ Fluticasone (Advair 100/50 Diskus) 1 puffs BID INH 06/07/19 09:00 08/27/19 08:59 06/11/19 09:14 Sevelamer Carbonate (Renvela) 1,600 mg THREE TIMES A DAY NG 06/07/19 13:00 09/05/19 12:59 06/11/19 09:13 Sodium Citrate (Bicitra) 30 ml Q8HR NG 06/07/19 14:00 06/28/19 11:59 06/11/19 06:21 Ted Leyva MD June 11, 2019 10:02
[2019-06-11] MEDS: D5W IV SCH (11:06)
[2019-06-11] MEDS: NOREPINEPHRINE BITARTRATE IV SCH (11:06)
--- NOTE | 2019-06-11 11:45 | Surgery Progress Note ---
Surgery Progress Note Subjective Procedure Performed left femoral temporary HD catheter placement Additional Comments remains on levo labs noted ill appearing moveing spontan Objective Last 24 Hour Vital Signs Date Time Temp Pulse Resp B/P (MAP) Pulse Ox O2 Delivery O2 Flow Rate FiO2 06/11/19 11:06 117/62 06/11/19 10:00 89 33 128/69 (88) 94 06/11/19 09:30 92 40 123/70 (87) 88 06/11/19 09:00 81 30 103/59 (74) 96 06/11/19 08:30 75 25 125/66 (85) 96 06/11/19 08:00 82 06/11/19 08:00 15.0 06/11/19 08:00 98.6 91 40 123/88 (100) 93 06/11/19 08:00 Non-Rebreather 15.0 06/11/19 07:30 78 26 97/52 (67) 96 06/11/19 07:15 94 Non-Rebreather 15.0 100 06/11/19 07:00 129/70 06/11/19 07:00 94 35 129/70 (89) 90 06/11/19 06:30 75 24 110/56 (74) 97 06/11/19 06:00 76 24 105/59 (74) 95 06/11/19 06:00 105/59 06/11/19 05:30 76 26 115/56 (75) 96 06/11/19 05:00 72 26 93/60 (71) 98 06/11/19 05:00 115/56 06/11/19 04:30 89 36 135/74 (94) 92 06/11/19 04:00 97.5 76 27 99/62 (74) 96 06/11/19 04:00 15.0 06/11/19 04:00 Non-Rebreather 15.0 06/11/19 04:00 99/62 06/11/19 03:30 80 33 119/73 (88) 97 06/11/19 03:02 89 06/11/19 03:00 127/66 06/11/19 03:00 87 38 127/66 (86) 91 06/11/19 02:30 81 34 112/54 (73) 96 06/11/19 02:00 77 28 90/56 (67) 96 06/11/19 02:00 112/54 06/11/19 01:30 96 44 107/64 (78) 88 06/11/19 01:00 107/64 06/11/19 01:00 80 29 90/60 (70) 90 06/11/19 00:30 88 34 89/57 (68) 91 06/11/19 00:10 105 06/11/19 00:00 89/57 06/11/19 00:00 98.3 86 32 126/67 (86) 91 06/11/19 00:00 Non-Rebreather 15.0 06/10/19 23:30 82 31 112/60 (77) 89 06/10/19 23:00 85 29 91/57 (68) 90 06/10/19 23:00 91/57 06/10/19 22:30 86 30 119/75 (90) 90 06/10/19 22:00 83 31 99/57 (71) 90 06/10/19 22:00 99/57 06/10/19 21:30 82 22 111/65 (80) 90 06/10/19 21:00 86 32 115/66 (82) 06/10/19 21:00 116/66 06/10/19 20:45 82 30 111/54 (73) 06/10/19 20:30 96 38 131/73 (92) 06/10/19 20:15 87 33 112/53 (72) 06/10/19 20:00 98.1 82 29 108/55 (72) 06/10/19 20:00 15.0 06/10/19 20:00 121/67 06/10/19 20:00 Non-Rebreather 15.0 06/10/19 20:00 85 06/10/19 19:45 88 35 121/63 (82) 06/10/19 19:38 96 Non-Rebreather 15.0 100 06/10/19 19:30 83 30 110/62 (78) 06/10/19 19:15 82 27 105/61 (76) 96 06/10/19 19:00 80 26 97/56 (70) 96 06/10/19 19:00 95/55 06/10/19 18:30 80 26 95/55 (68) 06/10/19 18:00 98.7 80 27 87/57 (67) 96 06/10/19 18:00 87/57 06/10/19 17:30 87 34 92/55 (67) 06/10/19 17:15 90 33 98/56 (70) 06/10/19 17:00 97 42 99/63 (75) 06/10/19 17:00 99/63 06/10/19 16:45 93 38 115/62 (79) 96 06/10/19 16:30 86 32 93/50 (64) 96 06/10/19 16:15 90 34 86/52 (63) 97 06/10/19 16:00 104 06/10/19 16:00 Non-Rebreather 15.0 06/10/19 16:00 81 29 86/53 (64) 86 06/10/19 16:00 106/64 06/10/19 16:00 15.0 06/10/19 16:00 107 43 106/64 (78) 91 06/10/19 15:20 104 57 124/69 (87) 86 06/10/19 15:15 98 33 102/70 (81) 90 06/10/19 15:10 101 34 117/64 (81) 91 06/10/19 15:05 99 38 116/67 (83) 90 06/10/19 15:00 113/65 06/10/19 15:00 97.9 104 37 113/65 (81) 87 06/10/19 14:30 117 39 122/65 (84) 86 06/10/19 14:00 118/72 06/10/19 14:00 93 32 118/72 (87) 87 06/10/19 13:30 79 28 111/66 (81) 95 06/10/19 13:00 110/69 06/10/19 13:00 78 28 120/74 (89) 96 06/10/19 13:00 76 25 110/69 (83) 96 06/10/19 12:30 79 26 118/85 (96) 96 06/10/19 12:00 Non-Rebreather 15.0 06/10/19 12:00 104 06/10/19 12:00 96/60 06/10/19 12:00 78 23 96/60 (72) 98 06/10/19 12:00 15.0 I&O Intake and Output 06/10/19 06/11/19 19:00 07:00 Intake Total 343.40 ml 301.32 ml Output Total 1520 ml 20 ml Balance -1176.60 ml 281.32 ml IV Total 183.40 ml 301.32 ml Other 160 ml Output Urine Total 20 ml 20 ml Hemodialysis UF 1500 ml # Bowel Movements 1 2 Dressing: other Wound: other Drains: other Cardiovascular: RSR Respiratory: decreased breath sounds Abdomen: soft, non-tender, present bowel sounds Extremities: no cyanosis, other Laboratory Tests Test 06/11/19 03:34 White Blood Count 28.2 K/UL (4.8-10.8) *H Red Blood Count 3.25 M/UL (4.70-6.10) L Hemoglobin 10.0 G/DL (14.2-18.0) L Hematocrit 28.5 % (42.0-52.0) L Mean Corpuscular Volume 88 FL (80-99) Mean Corpuscular Hemoglobin 30.7 PG (27.0-31.0) Mean Corpuscular Hemoglobin Concent 35.0 G/DL (32.0-36.0) Red Cell Distribution Width 13.6 % (11.6-14.8) Platelet Count 172 K/UL (150-450) Mean Platelet Volume 7.4 FL (6.5-10.1) Neutrophils (%) (Auto) % (45.0-75.0) Lymphocytes (%) (Auto) % (20.0-45.0) Monocytes (%) (Auto) % (1.0-10.0) Eosinophils (%) (Auto) % (0.0-3.0) Basophils (%) (Auto) % (0.0-2.0) Differential Total Cells Counted 100 Neutrophils % (Manual) 84 % (45-75) H Lymphocytes % (Manual) 3 % (20-45) L Monocytes % (Manual) 2 % (1-10) Eosinophils % (Manual) 1 % (0-3) Basophils % (Manual) 0 % (0-2) Metamyelocytes % 4 % (0-0) H Myelocytes % 4 % (0-0) H Band Neutrophils 2 % (0-8) Platelet Estimate Adequate Platelet Morphology Normal Sodium Level 143 MMOL/L (136-145) Potassium Level 4.0 MMOL/L (3.5-5.1) Chloride Level 98 MMOL/L (98-107) Carbon Dioxide Level 22 MMOL/L (21-32) Anion Gap 23 mmol/L (5-15) H Blood Urea Nitrogen 86 mg/dL (7-18) H Creatinine 10.8 MG/DL (0.55-1.30) H Estimat Glomerular Filtration Rate 4.8 mL/min (>60) Glucose Level 178 MG/DL (74-106) H Uric Acid 8.5 MG/DL (2.6-7.2) H Calcium Level 9.2 MG/DL (8.5-10.1) Phosphorus Level 7.1 MG/DL (2.5-4.9) H Magnesium Level 2.6 MG/DL (1.8-2.4) H Total Bilirubin 0.3 MG/DL (0.2-1.0) Gamma Glutamyl Transpeptidase 6 U/L (5-85) Aspartate Amino Transf (AST/SGOT) 30 U/L (15-37) Alanine Aminotransferase (ALT/SGPT) 14 U/L (12-78) Alkaline Phosphatase 113 U/L (46-116) C-Reactive Protein, Quantitative 9.6 mg/dL (0.00-0.90) H Pro-B-Type Natriuretic Peptide 7775 pg/mL (0-125) H Total Protein 8.6 G/DL (6.4-8.2) H Albumin 2.1 G/DL (3.4-5.0) L Globulin 6.5 g/dL Albumin/Globulin Ratio 0.3 (1.0-2.7) L Plan Problems: (1) Suspected COVID-19 virus infection (2) HTN (hypertension) (3) CASSANDRA (acute kidney injury) Assessment & Plan: Needs urgent HD needs access patient okay and consented see note will follow with recs new line placed discussed with team and nephrology HD line functional when checked has TPA now please use appropriately Cathflo used again this flow during dialysis on 430 was low. Will monitor may need (4) Anemia in chronic kidney disease (CKD) (5) Anemia (6) Renal failure (7) Suspected COVID-19 virus infection (8) COVID-19 Assessment & Plan: COVID + c diff negative febrile leukocytosis renal insufficiency see above cont resp care Rx as per Yaniv Clarke June 11, 2019 11:45
--- NOTE | 2019-06-11 12:59 | Cardiac Electrophysiology PN ---
Assessment/Plan Assessment/Plan 1. Elevated troponin. Troponin on May 27 and May 30 were negative; however , on June 01, it was elevated at 0.074. Repeat 0.05. No chest pain. Due to renal failure. On Aspirin. QT 493. Plaquenil DCed. Echo EF 60% 2. Septic shock. OFF Levo today 3. End-stage renal disease, on hemodialysis per Dr. Cole. 4. COVID-19 positive pneumonia and lymphopenia. Fu by Dr. Ted Leyva and Dr. Mckeon. 5. MRSA carrier. 6. COPD. 7. Anemia. 8. Depression. DW RN Subjective Subjective In Covid isolation in ICU. On 15 liter NRB face mask. In SR. S/P 2 units of PRBC and HD . Off Levphed Objective Last 24 Hour Vital Signs Date Time Temp Pulse Resp B/P (MAP) Pulse Ox O2 Delivery O2 Flow Rate FiO2 06/11/19 12:00 Non-Rebreather 15.0 06/11/19 12:00 98.6 88 33 114/61 (78) 94 06/11/19 11:45 89 35 146/94 (111) 95 06/11/19 11:30 89 35 146/94 (111) 95 06/11/19 11:15 76 28 117/62 (80) 98 06/11/19 11:06 117/62 06/11/19 11:00 76 28 117/62 (80) 98 06/11/19 10:45 76 28 116/57 (76) 99 06/11/19 10:30 76 28 116/57 (76) 99 06/11/19 10:00 89 33 128/69 (88) 94 06/11/19 09:30 92 40 123/70 (87) 88 06/11/19 09:00 81 30 103/59 (74) 96 06/11/19 08:30 75 25 125/66 (85) 96 06/11/19 08:00 82 06/11/19 08:00 15.0 06/11/19 08:00 98.6 91 40 123/88 (100) 93 06/11/19 08:00 Non-Rebreather 15.0 06/11/19 07:30 78 26 97/52 (67) 96 06/11/19 07:15 94 Non-Rebreather 15.0 100 06/11/19 07:00 129/70 06/11/19 07:00 94 35 129/70 (89) 90 06/11/19 06:30 75 24 110/56 (74) 97 06/11/19 06:00 76 24 105/59 (74) 95 06/11/19 06:00 105/59 06/11/19 05:30 76 26 115/56 (75) 96 06/11/19 05:00 72 26 93/60 (71) 98 06/11/19 05:00 115/56 06/11/19 04:30 89 36 135/74 (94) 92 06/11/19 04:00 97.5 76 27 99/62 (74) 96 06/11/19 04:00 15.0 06/11/19 04:00 Non-Rebreather 15.0 06/11/19 04:00 99/62 06/11/19 03:30 80 33 119/73 (88) 97 06/11/19 03:02 89 06/11/19 03:00 127/66 06/11/19 03:00 87 38 127/66 (86) 91 06/11/19 02:30 81 34 112/54 (73) 96 06/11/19 02:00 77 28 90/56 (67) 96 06/11/19 02:00 112/54 06/11/19 01:30 96 44 107/64 (78) 88 06/11/19 01:00 107/64 06/11/19 01:00 80 29 90/60 (70) 90 06/11/19 00:30 88 34 89/57 (68) 91 06/11/19 00:10 105 06/11/19 00:00 89/57 06/11/19 00:00 98.3 86 32 126/67 (86) 91 06/11/19 00:00 Non-Rebreather 15.0 06/10/19 23:30 82 31 112/60 (77) 89 06/10/19 23:00 85 29 91/57 (68) 90 06/10/19 23:00 91/57 06/10/19 22:30 86 30 119/75 (90) 90 06/10/19 22:00 83 31 99/57 (71) 90 06/10/19 22:00 99/57 4/30/20 21:30 82 22 111/65 (80) 90 06/10/19 21:00 86 32 115/66 (82) 06/10/19 21:00 116/66 06/10/19 20:45 82 30 111/54 (73) 06/10/19 20:30 96 38 131/73 (92) 06/10/19 20:15 87 33 112/53 (72) 06/10/19 20:00 98.1 82 29 108/55 (72) 06/10/19 20:00 15.0 06/10/19 20:00 121/67 06/10/19 20:00 Non-Rebreather 15.0 06/10/19 20:00 85 06/10/19 19:45 88 35 121/63 (82) 06/10/19 19:38 96 Non-Rebreather 15.0 100 06/10/19 19:30 83 30 110/62 (78) 06/10/19 19:15 82 27 105/61 (76) 96 06/10/19 19:00 80 26 97/56 (70) 96 06/10/19 19:00 95/55 06/10/19 18:30 80 26 95/55 (68) 06/10/19 18:00 98.7 80 27 87/57 (67) 96 06/10/19 18:00 87/57 06/10/19 17:30 87 34 92/55 (67) 06/10/19 17:15 90 33 98/56 (70) 06/10/19 17:00 97 42 99/63 (75) 06/10/19 17:00 99/63 06/10/19 16:45 93 38 115/62 (79) 96 06/10/19 16:30 86 32 93/50 (64) 96 06/10/19 16:15 90 34 86/52 (63) 97 06/10/19 16:00 104 06/10/19 16:00 Non-Rebreather 15.0 06/10/19 16:00 81 29 86/53 (64) 86 06/10/19 16:00 106/64 06/10/19 16:00 15.0 06/10/19 16:00 107 43 106/64 (78) 91 06/10/19 15:20 104 57 124/69 (87) 86 06/10/19 15:15 98 33 102/70 (81) 90 06/10/19 15:10 101 34 117/64 (81) 91 06/10/19 15:05 99 38 116/67 (83) 90 06/10/19 15:00 113/65 06/10/19 15:00 97.9 104 37 113/65 (81) 87 06/10/19 14:30 117 39 122/65 (84) 86 06/10/19 14:00 118/72 06/10/19 14:00 93 32 118/72 (87) 87 06/10/19 13:30 79 28 111/66 (81) 95 06/10/19 13:00 110/69 06/10/19 13:00 78 28 120/74 (89) 96 06/10/19 13:00 76 25 110/69 (83) 96 Intake and Output 06/10/19 06/11/19 19:00 07:00 Intake Total 343.40 ml 301.32 ml Output Total 1520 ml 20 ml Balance -1176.60 ml 281.32 ml IV Total 183.40 ml 301.32 ml Other 160 ml Output Urine Total 20 ml 20 ml Hemodialysis UF 1500 ml # Bowel Movements 1 2 Laboratory Tests Test 06/11/19 03:34 White Blood Count 28.2 K/UL (4.8-10.8) *H Red Blood Count 3.25 M/UL (4.70-6.10) L Hemoglobin 10.0 G/DL (14.2-18.0) L Hematocrit 28.5 % (42.0-52.0) L Mean Corpuscular Volume 88 FL (80-99) Mean Corpuscular Hemoglobin 30.7 PG (27.0-31.0) Mean Corpuscular Hemoglobin Concent 35.0 G/DL (32.0-36.0) Red Cell Distribution Width 13.6 % (11.6-14.8) Platelet Count 172 K/UL (150-450) Mean Platelet Volume 7.4 FL (6.5-10.1) Neutrophils (%) (Auto) % (45.0-75.0) Lymphocytes (%) (Auto) % (20.0-45.0) Monocytes (%) (Auto) % (1.0-10.0) Eosinophils (%) (Auto) % (0.0-3.0) Basophils (%) (Auto) % (0.0-2.0) Differential Total Cells Counted 100 Neutrophils % (Manual) 84 % (45-75) H Lymphocytes % (Manual) 3 % (20-45) L Monocytes % (Manual) 2 % (1-10) Eosinophils % (Manual) 1 % (0-3) Basophils % (Manual) 0 % (0-2) Metamyelocytes % 4 % (0-0) H Myelocytes % 4 % (0-0) H Band Neutrophils 2 % (0-8) Platelet Estimate Adequate Platelet Morphology Normal Sodium Level 143 MMOL/L (136-145) Potassium Level 4.0 MMOL/L (3.5-5.1) Chloride Level 98 MMOL/L (98-107) Carbon Dioxide Level 22 MMOL/L (21-32) Anion Gap 23 mmol/L (5-15) H Blood Urea Nitrogen 86 mg/dL (7-18) H Creatinine 10.8 MG/DL (0.55-1.30) H Estimat Glomerular Filtration Rate 4.8 mL/min (>60) Glucose Level 178 MG/DL (74-106) H Uric Acid 8.5 MG/DL (2.6-7.2) H Calcium Level 9.2 MG/DL (8.5-10.1) Phosphorus Level 7.1 MG/DL (2.5-4.9) H Magnesium Level 2.6 MG/DL (1.8-2.4) H Total Bilirubin 0.3 MG/DL (0.2-1.0) Gamma Glutamyl Transpeptidase 6 U/L (5-85) Aspartate Amino Transf (AST/SGOT) 30 U/L (15-37) Alanine Aminotransferase (ALT/SGPT) 14 U/L (12-78) Alkaline Phosphatase 113 U/L (46-116) C-Reactive Protein, Quantitative 9.6 mg/dL (0.00-0.90) H Pro-B-Type Natriuretic Peptide 7775 pg/mL (0-125) H Total Protein 8.6 G/DL (6.4-8.2) H Albumin 2.1 G/DL (3.4-5.0) L Globulin 6.5 g/dL Albumin/Globulin Ratio 0.3 (1.0-2.7) L Objective HEAD AND NECK: No JVD. LUNGS: Decreased breath sounds. CARDIOVASCULAR: Regular S1 and S2. Tachycardic. ABDOMEN: Soft. EXTREMITIES: No pitting edema. New Left FV Gio Engle MD June 11, 2019 12:59
--- NOTE | 2019-06-11 15:21 | Diagnostic Imaging Report ---
Indication: Shortness of breath Technique: One view of the chest Comparison: For 30/08/2019 Findings: Extensive bilateral diffuse infiltrates are again demonstrated, may be slightly worse on the left, stable on the right. Slightly high position of nasogastric tube, tip projected at the level gastric fundus with proximal sidehole at the level of the gastroesophageal junction. Impression: Extensive bilateral infiltrates, stable on the right and perhaps slightly worse on the left, since prior study of 4 days earlier Slightly high position of nasogastric tube. Advancement recommended. This finding was phoned to ICU charge nurse Gayla at the time of interpretation
--- NOTE | 2019-06-11 16:47 | General Progress Note ---
Assessment/Plan Problem List: (1) Anemia ICD Codes: D64.9 - Anemia, unspecified SNOMED: 524922361 (2) Renal failure ICD Codes: N19 - Unspecified kidney failure SNOMED: 75643245 (3) Suspected COVID-19 virus infection ICD Codes: R68.89 - Other general symptoms and signs SNOMED: 657351897 (4) HTN (hypertension) ICD Codes: I10 - Essential (primary) hypertension SNOMED: 09560446 (5) CASSANDRA (acute kidney injury) ICD Codes: N17.9 - Acute kidney failure, unspecified SNOMED: 7693252, 39968347 (6) Anemia in chronic kidney disease (CKD) ICD Codes: N18.9 - Chronic kidney disease, unspecified; D63.1 - Anemia in chronic kidney disease SNOMED: 331524013 (7) Suspected COVID-19 virus infection ICD Codes: R68.89 - Other general symptoms and signs SNOMED: 563308934 Status: progressing Assessment/Plan: improving renal failure requiring diaylsis cxr worsening s/p pressor pna covid positve anemia s/p fluid overload worsening leukocytosis sepsis reviewed chart and labs afebrile Subjective ROS Limited/Unobtainable: Yes Allergies: Coded Allergies: No Known Allergies (Unverified , 05/28/19) Objective Last 24 Hour Vital Signs Date Time Temp Pulse Resp B/P (MAP) Pulse Ox O2 Delivery O2 Flow Rate FiO2 06/11/19 16:00 15.0 06/11/19 16:00 65 06/11/19 16:00 Non-Rebreather 15.0 06/11/19 15:00 94 39 119/65 (83) 89 06/11/19 15:00 119/65 06/11/19 14:45 94 39 119/65 (83) 89 06/11/19 14:30 81 27 92/55 (67) 92 06/11/19 14:15 81 27 92/55 (67) 92 06/11/19 14:00 95 40 135/58 (83) 90 06/11/19 14:00 135/58 06/11/19 13:45 95 40 135/58 (83) 90 06/11/19 13:30 102 42 112/79 (90) 90 06/11/19 13:15 102 42 112/79 (90) 90 06/11/19 13:00 112/79 06/11/19 13:00 79 26 97/56 (70) 98 06/11/19 12:45 79 26 97/56 (70) 98 06/11/19 12:30 86 32 94/63 (73) 97 06/11/19 12:15 86 32 94/63 (73) 97 06/11/19 12:00 Non-Rebreather 15.0 06/11/19 12:00 97 06/11/19 12:00 15.0 06/11/19 12:00 114/61 06/11/19 12:00 98.6 88 33 114/61 (78) 94 06/11/19 11:45 89 35 146/94 (111) 95 06/11/19 11:30 146/94 06/11/19 11:30 89 35 146/94 (111) 95 06/11/19 11:15 76 28 117/62 (80) 98 06/11/19 11:06 117/62 06/11/19 11:00 76 28 117/62 (80) 98 06/11/19 11:00 117/62 06/11/19 10:45 76 28 116/57 (76) 99 06/11/19 10:30 76 28 116/57 (76) 99 06/11/19 10:00 89 33 128/69 (88) 94 06/11/19 10:00 128/69 06/11/19 09:30 92 40 123/70 (87) 88 06/11/19 09:00 123/70 06/11/19 09:00 81 30 103/59 (74) 96 06/11/19 08:30 75 25 125/66 (85) 96 06/11/19 08:00 82 06/11/19 08:00 15.0 06/11/19 08:00 125/66 06/11/19 08:00 98.6 91 40 123/88 (100) 93 06/11/19 08:00 Non-Rebreather 15.0 06/11/19 07:30 78 26 97/52 (67) 96 06/11/19 07:15 94 Non-Rebreather 15.0 100 06/11/19 07:00 129/70 06/11/19 07:00 94 35 129/70 (89) 90 06/11/19 06:30 75 24 110/56 (74) 97 06/11/19 06:00 76 24 105/59 (74) 95 06/11/19 06:00 105/59 06/11/19 05:30 76 26 115/56 (75) 96 06/11/19 05:00 72 26 93/60 (71) 98 06/11/19 05:00 115/56 06/11/19 04:30 89 36 135/74 (94) 92 06/11/19 04:00 97.5 76 27 99/62 (74) 96 06/11/19 04:00 15.0 06/11/19 04:00 Non-Rebreather 15.0 06/11/19 04:00 99/62 06/11/19 03:30 80 33 119/73 (88) 97 06/11/19 03:02 89 06/11/19 03:00 127/66 06/11/19 03:00 87 38 127/66 (86) 91 06/11/19 02:30 81 34 112/54 (73) 96 06/11/19 02:00 77 28 90/56 (67) 96 06/11/19 02:00 112/54 06/11/19 01:30 96 44 107/64 (78) 88 06/11/19 01:00 107/64 06/11/19 01:00 80 29 90/60 (70) 90 06/11/19 00:30 88 34 89/57 (68) 91 06/11/19 00:10 105 06/11/19 00:00 89/57 06/11/19 00:00 98.3 86 32 126/67 (86) 91 06/11/19 00:00 Non-Rebreather 15.0 06/10/19 23:30 82 31 112/60 (77) 89 06/10/19 23:00 85 29 91/57 (68) 90 06/10/19 23:00 91/57 06/10/19 22:30 86 30 119/75 (90) 90 06/10/19 22:00 83 31 99/57 (71) 90 06/10/19 22:00 99/57 06/10/19 21:30 82 22 111/65 (80) 90 06/10/19 21:00 86 32 115/66 (82) 06/10/19 21:00 116/66 06/10/19 20:45 82 30 111/54 (73) 06/10/19 20:30 96 38 131/73 (92) 06/10/19 20:15 87 33 112/53 (72) 06/10/19 20:00 98.1 82 29 108/55 (72) 06/10/19 20:00 15.0 06/10/19 20:00 121/67 06/10/19 20:00 Non-Rebreather 15.0 06/10/19 20:00 85 06/10/19 19:45 88 35 121/63 (82) 06/10/19 19:38 96 Non-Rebreather 15.0 100 06/10/19 19:30 83 30 110/62 (78) 06/10/19 19:15 82 27 105/61 (76) 96 06/10/19 19:00 80 26 97/56 (70) 96 06/10/19 19:00 95/55 06/10/19 18:30 80 26 95/55 (68) 06/10/19 18:00 98.7 80 27 87/57 (67) 96 06/10/19 18:00 87/57 06/10/19 17:30 87 34 92/55 (67) 06/10/19 17:15 90 33 98/56 (70) 06/10/19 17:00 97 42 99/63 (75) 06/10/19 17:00 99/63 Intake and Output 06/10/19 06/11/19 19:00 07:00 Intake Total 343.40 ml 301.32 ml Output Total 1520 ml 20 ml Balance -1176.60 ml 281.32 ml IV Total 183.40 ml 301.32 ml Other 160 ml Output Urine Total 20 ml 20 ml Hemodialysis UF 1500 ml # Bowel Movements 1 2 Laboratory Tests 06/11/19 03:34: White Blood Count 28.2*H, Red Blood Count 3.25L, Hemoglobin 10.0L, Hematocrit 28.5L, Mean Corpuscular Volume 88, Mean Corpuscular Hemoglobin 30.7, Mean Corpuscular Hemoglobin Concent 35.0, Red Cell Distribution Width 13.6, Platelet Count 172, Mean Platelet Volume 7.4, Neutrophils (%) (Auto) , Lymphocytes (%) ( Auto) , Monocytes (%) (Auto) , Eosinophils (%) (Auto) , Basophils (%) (Auto) , Differential Total Cells Counted 100, Neutrophils % (Manual) 84H, Lymphocytes % (Manual) 3L, Monocytes % (Manual) 2, Eosinophils % (Manual) 1, Basophils % ( Manual) 0, Metamyelocytes % 4H, Myelocytes % 4H, Band Neutrophils 2, Platelet Estimate Adequate, Platelet Morphology Normal, Sodium Level 143, Potassium Level 4.0, Chloride Level 98, Carbon Dioxide Level 22, Anion Gap 23H, Blood Urea Nitrogen 86H, Creatinine 10.8H, Estimat Glomerular Filtration Rate 4.8, Glucose Level 178H, Uric Acid 8.5H, Calcium Level 9.2, Phosphorus Level 7.1H, Magnesium Level 2.6H, Total Bilirubin 0.3, Gamma Glutamyl Transpeptidase 6, Aspartate Amino Transf (AST/SGOT) 30, Alanine Aminotransferase (ALT/SGPT) 14, Alkaline Phosphatase 113, C-Reactive Protein, Quantitative 9.6H, Pro-B-Type Natriuretic Peptide 7775H, Total Protein 8.6H, Albumin 2.1L, Globulin 6.5, Albumin/Globulin Ratio 0.3L Height (Feet): 6 Height (Inches): 1.00 Weight (Pounds): 180 General Appearance: lethargic, confused Karishma Mulligan MD June 11, 2019 16:47
[2019-06-11] MEDS ORDERED: NS 275ml ONE (17:20)
[2019-06-11] MEDS ORDERED: Tubing IV Secondary IV ONE (17:20)
[2019-06-11] MEDS ORDERED: Sterile Water Irrig 2000ml IRRIG ONE (17:20)
[2019-06-11] MEDS: Dyna-Hex 2% Top Sol 2oz TOPIC SCH (20:45)
[2019-06-11] MEDS: Epoetin Alfa-EPBX(ESRD on dialysis)10,000 unit/ml vial SUBQ SCH (20:45)
--- NOTE | 2019-06-11 23:07 | Diagnostic Imaging Report ---
EXAM: XR Abdomen, 2 Views CLINICAL HISTORY: TUBE PLCMT TECHNIQUE: Frontal view of the abdomen/pelvis with upright view of the abdomen. COMPARISON: Chest radiograph dated 05/30/19. FINDINGS: Lower thorax: There is extensive disease in the lungs with multifocal patchy consolidations and bronchiectasis. Gastrointestinal tract: Unremarkable. No dilation. Organs: 1.9 cm calcification projects over the left of L2-L3 medial to the left kidney. A ureteral calculus is not excluded. Bones/joints: Unremarkable. Tubes, lines and devices: Feeding tube tip is within the stomach. IMPRESSION: Feeding tube tip is within the stomach.
--- NOTE | 2019-06-11 23:41 | Psych Consult Progress Note ---
Psychiatry Progress Note Psychiatry Progress Note Medications Current Medications Medications (Trade) Dose Ordered Sig/Anthony Route PRN Reason Start Time Stop Time Status Last Admin Dose Admin Acetaminophen (Tylenol) 650 mg Q6H PRN ORAL MILD PAIN/Temp >100.5 06/07/19 00:00 07/07/19 00:00 Albumin Human 250 ml @ 0 mls/hr Q0M PRN IV For hypotension 06/06/19 21:15 09/04/19 12:44 Albuterol Sulfate (Proventil MDI) 2 puff Q4HRT INH 06/06/19 23:00 08/30/19 18:59 06/11/19 09:15 Allopurinol (allopurinoL) 300 mg DAILY NG 06/08/19 09:30 07/08/19 09:29 06/11/19 09:19 Chlorhexidine Gluconate (Michelle-Hex 2%) 1 applic DAILY@2000 TOPIC 06/07/19 20:00 09/05/19 19:59 06/11/19 20:45 Docusate Sodium (Colace) 100 mg THREE TIMES A DAY NG 06/07/19 13:00 07/07/19 12:59 06/11/19 13:00 Enoxaparin Sodium (Lovenox) 30 mg DAILY SUBQ 06/07/19 09:00 08/27/19 08:59 06/11/19 09:14 Epoetin Aftab (Epoetin Aftab(ESRD on dialysis)) 10,000 unit FRI-FRI-FRI SUBQ 06/07/19 21:00 08/31/19 20:59 06/11/19 20:45 Hydralazine HCl (Apresoline) 10 mg Q4H PRN IV Blood pressure over 160 systol 06/07/19 10:15 09/05/19 10:14 Midodrine (Pro-Amatine) 10 mg THREE TIMES A DAY NG 06/09/19 13:00 09/07/19 12:59 06/11/19 17:31 Norepinephrine Bitartrate 8 mg/ Dextrose 558 ml @ 0 mls/hr Q24H IV 06/07/19 09:00 07/07/19 08:59 06/11/19 11:06 Pantoprazole (Protonix) 40 mg Q12HR IVP 06/07/19 21:00 07/07/19 08:59 06/11/19 20:45 Salmeterol Xinafoate/ Fluticasone (Advair 100/50 Diskus) 1 puffs BID INH 06/07/19 09:00 08/27/19 08:59 06/11/19 09:14 Sevelamer Carbonate (Renvela) 1,600 mg THREE TIMES A DAY NG 06/07/19 13:00 09/05/19 12:59 06/11/19 17:31 Sodium Citrate (Bicitra) 30 ml Q8HR NG 06/07/19 14:00 06/28/19 11:59 06/11/19 22:05 Allergies: Coded Allergies: No Known Allergies (Unverified , 05/28/19) Objective Data Height (Feet): 6 Height (Inches): 1.00 Weight (Pounds): 180 Assessment/Plan Status: Guicho Gagnon MD June 11, 2019 23:41
[2019-06-12] VITALS (86 sets, daily range): BP systolic 66–157; BP diastolic 42–86
--- NOTE | 2019-06-12 02:33 | Pulmonology Progress Note ---
Assessment/Plan Assessment/Plan Pulmonary CCM Progress Note HPI: Patient is a 68 year old man, residential resident, admitted c/o shortness of breath, cough, noted to have Covid 19 Pneumonia. 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 Monitor cultures/viral studies PPX Hemodialysis per Renal Psychiatry following [facility] - [facility] requested for when available Laboratory Tests Noted: CXR: Hypoventilatory exam, interstitial changes, cardiomegaly, worseing infiltrates Subjective ROS Limited/Unobtainable: No Constitutional: Denies: fever Respiratory: Reports: dry cough, shortness of breath Gastrointestinal/Abdominal: Reports: diarrhea, other - colace was stopped Psychiatric: Reports: other - refuses labs Allergies: Coded Allergies: No Known Allergies (Unverified , 05/28/19) All Systems: reviewed and negative except above Objective Last 24 Hour Vital Signs Date Time Temp Pulse Resp B/P (MAP) Pulse Ox O2 Delivery O2 Flow Rate FiO2 06/12/19 02:00 108 53 107/65 (79) 92 06/12/19 01:00 103 49 106/69 (81) 90 06/12/19 00:00 98.4 108 52 135/70 (91) 90 06/12/19 00:00 Non-Rebreather 15.0 06/11/19 23:18 140/79 06/11/19 23:00 102 48 90/54 (66) 91 06/11/19 23:00 90/56 06/11/19 22:00 97 43 147/75 (99) 90 06/11/19 22:00 147/75 06/11/19 21:00 94 43 144/66 (92) 88 06/11/19 21:00 144/66 06/11/19 20:00 Non-Rebreather 15.0 06/11/19 20:00 15.0 06/11/19 20:00 103/60 06/11/19 20:00 82 06/11/19 20:00 100 41 103/60 (74) 94 06/11/19 19:14 97 Non-Rebreather 15.0 100 06/11/19 19:00 108/63 06/11/19 19:00 98.8 87 35 108/63 (78) 91 06/11/19 18:00 84 32 105/58 (74) 93 06/11/19 18:00 117/65 06/11/19 17:30 99 40 98/64 (75) 84 06/11/19 17:00 102/61 06/11/19 17:00 87 33 102/61 (75) 06/11/19 16:30 91 42 133/67 (89) 06/11/19 16:00 15.0 06/11/19 16:00 98.6 96 32 134/78 (96) 06/11/19 16:00 65 06/11/19 16:00 134/78 06/11/19 16:00 Non-Rebreather 15.0 06/11/19 15:30 101 47 130/66 (87) 06/11/19 15:00 94 39 119/65 (83) 89 06/11/19 15:00 119/65 06/11/19 14:45 94 39 119/65 (83) 89 06/11/19 14:30 81 27 92/55 (67) 92 06/11/19 14:15 81 27 92/55 (67) 92 06/11/19 14:00 95 40 135/58 (83) 90 06/11/19 14:00 135/58 06/11/19 13:45 95 40 135/58 (83) 90 06/11/19 13:30 102 42 112/79 (90) 90 06/11/19 13:15 102 42 112/79 (90) 90 06/11/19 13:00 112/79 06/11/19 13:00 79 26 97/56 (70) 98 06/11/19 12:45 79 26 97/56 (70) 98 06/11/19 12:30 86 32 94/63 (73) 97 06/11/19 12:15 86 32 94/63 (73) 97 06/11/19 12:00 Non-Rebreather 15.0 06/11/19 12:00 97 06/11/19 12:00 15.0 06/11/19 12:00 114/61 06/11/19 12:00 98.6 88 33 114/61 (78) 94 06/11/19 11:45 89 35 146/94 (111) 95 06/11/19 11:30 146/94 06/11/19 11:30 89 35 146/94 (111) 95 06/11/19 11:15 76 28 117/62 (80) 98 06/11/19 11:06 117/62 06/11/19 11:00 76 28 117/62 (80) 98 06/11/19 11:00 117/62 06/11/19 10:45 76 28 116/57 (76) 99 06/11/19 10:30 76 28 116/57 (76) 99 06/11/19 10:00 89 33 128/69 (88) 94 06/11/19 10:00 128/69 06/11/19 09:30 92 40 123/70 (87) 88 06/11/19 09:00 123/70 06/11/19 09:00 81 30 103/59 (74) 96 06/11/19 08:30 75 25 125/66 (85) 96 06/11/19 08:00 82 06/11/19 08:00 15.0 06/11/19 08:00 125/66 06/11/19 08:00 98.6 91 40 123/88 (100) 93 06/11/19 08:00 Non-Rebreather 15.0 06/11/19 07:30 78 26 97/52 (67) 96 06/11/19 07:15 94 Non-Rebreather 15.0 100 06/11/19 07:00 129/70 06/11/19 07:00 94 35 129/70 (89) 90 06/11/19 06:30 75 24 110/56 (74) 97 06/11/19 06:00 76 24 105/59 (74) 95 06/11/19 06:00 105/59 06/11/19 05:30 76 26 115/56 (75) 96 06/11/19 05:00 72 26 93/60 (71) 98 06/11/19 05:00 115/56 06/11/19 04:30 89 36 135/74 (94) 92 06/11/19 04:00 97.5 76 27 99/62 (74) 96 06/11/19 04:00 15.0 06/11/19 04:00 Non-Rebreather 15.0 06/11/19 04:00 99/62 06/11/19 03:30 80 33 119/73 (88) 97 06/11/19 03:02 89 06/11/19 03:00 127/66 06/11/19 03:00 87 38 127/66 (86) 91 Intake and Output 06/11/19 06/12/19 19:00 07:00 Intake Total 298.54 ml 58.59 ml Output Total 30 ml Balance 268.54 ml 58.59 ml IV Total 238.54 ml 58.59 ml Other 60 ml Output Urine Total 30 ml General Appearance: no acute distress HEENT: mucous membranes moist Abdomen: soft, non tender Extremities: no edema Skin: no rash Neurologic/Psychiatric: disoriented Laboratory Tests 06/11/19 03:34: White Blood Count 28.2*H, Red Blood Count 3.25L, Hemoglobin 10.0L, Hematocrit 28.5L, Mean Corpuscular Volume 88, Mean Corpuscular Hemoglobin 30.7, Mean Corpuscular Hemoglobin Concent 35.0, Red Cell Distribution Width 13.6, Platelet Count 172, Mean Platelet Volume 7.4, Neutrophils (%) (Auto) , Lymphocytes (%) ( Auto) , Monocytes (%) (Auto) , Eosinophils (%) (Auto) , Basophils (%) (Auto) , Differential Total Cells Counted 100, Neutrophils % (Manual) 84H, Lymphocytes % (Manual) 3L, Monocytes % (Manual) 2, Eosinophils % (Manual) 1, Basophils % ( Manual) 0, Metamyelocytes % 4H, Myelocytes % 4H, Band Neutrophils 2, Platelet Estimate Adequate, Platelet Morphology Normal, Sodium Level 143, Potassium Level 4.0, Chloride Level 98, Carbon Dioxide Level 22, Anion Gap 23H, Blood Urea Nitrogen 86H, Creatinine 10.8H, Estimat Glomerular Filtration Rate 4.8, Glucose Level 178H, Uric Acid 8.5H, Calcium Level 9.2, Phosphorus Level 7.1H, Magnesium Level 2.6H, Total Bilirubin 0.3, Gamma Glutamyl Transpeptidase 6, Aspartate Amino Transf (AST/SGOT) 30, Alanine Aminotransferase (ALT/SGPT) 14, Alkaline Phosphatase 113, C-Reactive Protein, Quantitative 9.6H, Pro-B-Type Natriuretic Peptide 7775H, Total Protein 8.6H, Albumin 2.1L, Globulin 6.5, Albumin/Globulin Ratio 0.3L 06/11/19 19:14: Arterial Blood pH 7.521H, Arterial Blood Partial Pressure CO2 18.8*L, Arterial Blood Partial Pressure O2 82.6, Arterial Blood HCO3 15.0*L, Arterial Blood Oxygen Saturation 97.1, Arterial Blood Base Excess -6.0L, Kosta Test Positive 06/12/19 01:30: Arterial Blood pH 7.358, Arterial Blood Partial Pressure CO2 28.0L, Arterial Blood Partial Pressure O2 58.1L, Arterial Blood HCO3 15.4*L, Arterial Blood Oxygen Saturation 86.8*L, Arterial Blood Base Excess -8.8L, Kosta Test Positive Current Medications Medications (Trade) Dose Ordered Sig/Anthony Route PRN Reason Start Time Stop Time Status Last Admin Dose Admin Acetaminophen (Tylenol) 650 mg Q6H PRN ORAL MILD PAIN/Temp >100.5 06/07/19 00:00 07/07/19 00:00 Albumin Human 250 ml @ 0 mls/hr Q0M PRN IV For hypotension 06/06/19 21:15 09/04/19 12:44 Albuterol Sulfate (Proventil MDI) 2 puff Q4HRT INH 06/06/19 23:00 08/30/19 18:59 06/11/19 09:15 Allopurinol (allopurinoL) 300 mg DAILY NG 06/08/19 09:30 07/08/19 09:29 06/11/19 09:19 Chlorhexidine Gluconate (Michelle-Hex 2%) 1 applic DAILY@2000 TOPIC 06/07/19 20:00 09/05/19 19:59 06/11/19 20:45 Divalproex Sodium (Depakote) 250 mg EVERY 12 HOURS ORAL 06/12/19 09:00 07/12/19 08:59 Docusate Sodium (Colace) 100 mg THREE TIMES A DAY NG 06/07/19 13:00 07/07/19 12:59 06/11/19 13:00 Enoxaparin Sodium (Lovenox) 30 mg DAILY SUBQ 06/07/19 09:00 08/27/19 08:59 06/11/19 09:14 Epoetin Aftab (Epoetin Aftab(ESRD on dialysis)) 10,000 unit SUBQ 06/07/19 21:00 08/31/19 20:59 06/11/19 20:45 Hydralazine HCl (Apresoline) 10 mg Q4H PRN IV Blood pressure over 160 systol 06/07/19 10:15 09/05/19 10:14 Midodrine (Pro-Amatine) 10 mg THREE TIMES A DAY NG 06/09/19 13:00 09/07/19 12:59 06/11/19 17:31 Norepinephrine Bitartrate 8 mg/ Dextrose 558 ml @ 0 mls/hr Q24H IV 06/07/19 09:00 07/07/19 08:59 06/11/19 11:06 Pantoprazole (Protonix) 40 mg Q12HR IVP 06/07/19 21:00 07/07/19 08:59 06/11/19 20:45 Salmeterol Xinafoate/ Fluticasone (Advair 100/50 Diskus) 1 puffs BID INH 06/07/19 09:00 08/27/19 08:59 06/11/19 09:14 Sevelamer Carbonate (Renvela) 1,600 mg THREE TIMES A DAY NG 06/07/19 13:00 09/05/19 12:59 06/11/19 17:31 Sodium Citrate (Bicitra) 30 ml Q8HR NG 06/07/19 14:00 06/28/19 11:59 06/11/19 22:05 Arturo Mckeon MD June 12, 2019 02:33
[2019-06-12] MEDS: Albuterol 90mcg Inhaler 8gm INH SCH ×6 (03:00→23:00)
[2019-06-12] MEDS: propofoL 1,000mg/100ml 100 ML IV SCH (03:44)
--- NOTE | 2019-06-12 04:40 | Emergency Room Report ---
History of Present Illness General Chief Complaint: Dyspnea/Respdistress Source: Medical Record, PMD Present Illness HPI This is a 68-year-old male admitted to the hospital for COVID pneumonia. I was asked to evaluate the patient for respiratory distress. Patient respiratory status been worsening. He has been more hypoxic. He is was placed on a high flow oxygen and was not tolerating it. His blood gas showed increasing CO2. I was asked by Dr. Blanc to evaluate the patient for possible intubation. On my arrival to ICU, patient is in respiratory distress. He is agitated and tried tried to get out of bed. He is not following command. History is otherwise limited. Allergies: Coded Allergies: No Known Allergies (Unverified , 05/28/19) COVID-19 Screening Contact w/high risk pt: Yes Recent Travel to affected area: No Experienced COVID-19 symptoms?: Yes COVID-19 symptoms experienced: Fever (T>100.4F or >38C), Shortness of Breath, Cough, Flu-Like Symptoms Patient History Past Medical History: DM, HTN, COPD Past Surgical History: other Pertinent Family History: none Social History: Denies: smoking Immunizations: other Reviewed Nursing Documentation: PMH: Agreed; PSxH: Agreed Nursing Documentation-PMH Past Medical History: No History, Except For Hx Hypertension: Yes Hx COPD: Yes Hx Diabetes: Yes Hx Cancer: No Hx Weakness: Yes Review of Systems Respiratory: Reports: cough, shortness of breath All Other Systems: limited - Secondary to condition Physical Exam Vital Signs Date Time Temp Pulse Resp B/P (MAP) Pulse Ox O2 Delivery O2 Flow Rate FiO2 06/08/19 07:00 75 25 121/62 (81) 100 06/08/19 08:00 Non-Rebreather 15.0 06/08/19 08:00 98.6 06/08/19 20:43 100 Sp02 EP Interpretation: abnormal General Appearance: moderate distress, Chronically Ill Head: normocephalic, atraumatic Eyes: bilateral eye PERRL, bilateral eye EOMI ENT: dry mucus membranes Neck: supple, no meningismus, limited range of motion - Secondary to arthritic changes Respiratory: chest non-tender, crackles Cardiovascular #1: regular rate, rhythm, no murmur Gastrointestinal: normal bowel sounds, non tender, no mass, no organomegaly, no bruit, non-distended Musculoskeletal: back normal, normal range of motion Neurologic: grossly normal Psychiatric: other - Agitated Skin: no rash Lymphatic: normal inspection Procedures Critical Care Time Critical Care Time Critical care is mandated in this patient who presented with respiratory failure secondary to COVID pneumonia. Patient require my urgent intervention to attenuate the risks of metabolic collapse which may lead to cardiovascular collapse and . Critical care time is 35 minutes excluding any reportable procedure. Critical care time included evaluation, multiple reevaluation, looking at old charts, interpreting laboratory and diagnostic data, discussing case with patient and family and consultants, and charting. Intubation Intubation : Consent: Emergent Intubation Method: orotracheal Tube Size (cm): 7.5 Medications: Etomidate, Succinylcholine Breath Sounds after Intubation: equal Intubation Complications: no complications Post Intubation Xray: Yes Progress/Xray Impression: Endotracheal tube in good position. Multi lobar infiltrates. No ptx Attempts: One Patient Tolerated: Well Complications: None Medical Decision Making Diagnostic Impression: Primary Impression: Respiratory failure requiring intubation Additional Impressions: Pneumonia due to COVID-19 virus Sepsis due to severe acute respiratory syndrome coronavirus 2 (SARS-CoV-2) ER Course This patient presents with respiratory failure secondary to COVID pneumonia. Because of increased work of breathing and increasing CO2 and oxygen requirement , I intubated patient for airway management. Prognosis is poor because of this. Chest X-Ray Diagnostic Results Chest X-Ray Diagnostic Results : Chest X-Ray Ordered: Yes # of Views/Limited/Complete: 1 View Indication: Shortness of Breath - Post intubation EP Interpretation: Yes Interpretation: no effusion, no pneumothorax, other - Endotracheal tube at the sternal notch. Multi lobar infiltrate. NG tube in good position. Impression: Other - ETT in good position. no Ptx. Electronically Signed by: Albert Sanders MD Last Vital Signs Date Time Temp Pulse Resp B/P (MAP) Pulse Ox O2 Delivery O2 Flow Rate FiO2 06/12/19 03:44 26 151/80 Mechanical Ventilator 100 06/12/19 03:30 92 06/12/19 02:00 92 06/12/19 00:00 98.4 06/12/19 00:00 15.0 Status: improved Disposition: ADMITTED INPATIENT Condition: Critical Referrals: Karishma Mulligan MD (PCP) Albert Sanders MD June 12, 2019 04:40
--- NOTE | 2019-06-12 04:56 | Diagnostic Imaging Report ---
EXAM: XR Chest, 1 View CLINICAL HISTORY: TUBE PLCMT TECHNIQUE: Frontal view of the chest. COMPARISON: Chest radiograph dated 06/11/19. FINDINGS: Lungs: There are extensive bilateral pulmonary consolidations similar to the previous study. Pleural space: Unremarkable. No pneumothorax. Heart: Unremarkable. No cardiomegaly. Mediastinum: Unremarkable. Bones/joints: Unremarkable. Tubes, lines and devices: Endotracheal tube tip is 5.5 cm above the re. Feeding tube tip is in the stomach. IMPRESSION: 1. There are extensive bilateral pulmonary consolidations similar to the previous study. Endotracheal tube tip is present 5.5 cm above the re. 2. Feeding tube in position in the stomach. 3. Unchanged extensive bilateral pulmonary infiltrates.
[2019-06-12] MEDS: Sodium Citrate 30ml NG SCH ×2 (07:12→13:23)
[2019-06-12] MEDS: D5W IV SCH ×4 (07:43→22:51)
[2019-06-12] MEDS: NOREPINEPHRINE BITARTRATE IV SCH ×4 (07:43→22:51)
[2019-06-12] MEDS: Wixela 100/50 Inhaler - 60 dose INH SCH ×2 (08:37→17:09)
[2019-06-12] MEDS: Pantoprazole Inj IVP SCH ×2 (09:03→20:57)
[2019-06-12] MEDS: Docusate 100mg/10ml Liq NG SCH ×3 (09:04→17:29)
[2019-06-12] MEDS: Renvela 800mg Pkt NG SCH ×3 (09:04→17:29)
[2019-06-12] MEDS: Enoxaparin 30mg Inj SUBQ SCH (09:04)
[2019-06-12] MEDS: Midodrine 10mg tab NG SCH ×3 (09:04→17:29)
[2019-06-12 09:16] LABS: HEMATOCRIT 27.4 % (42.0-52.0); HEMOGLOBIN 9.4 G/DL (14.2-18.0); MEAN CORPUSCULAR VOLUME 90 FL (80-99); PLATELET COUNT 141 K/UL (150-450); RED BLOOD COUNT 3.04 M/UL (4.70-6.10); RED CELL DISTRIBUTION WIDTH 15.5 % (11.6-14.8)
[2019-06-12 09:21] LABS: ANION GAP 24 mmol/L (5-15); BLOOD UREA NITROGEN 81 mg/dL (7-18); CALCIUM 8.8 MG/DL (8.5-10.1); CARBON DIOXIDE 23 MMOL/L (21-32); CHLORIDE 95 MMOL/L (98-107); CREATININE 10.6 MG/DL (0.55-1.30); POTASSIUM 3.5 MMOL/L (3.5-5.1); SODIUM 142 MMOL/L (136-145)
[2019-06-12 09:32] LABS: ALANINE AMINOTRANSFERASE 9 U/L (12-78); ALBUMIN 1.9 G/DL (3.4-5.0); ALKALINE PHOSPHATASE 125 U/L (46-116); ASPARTATE AMINO TRANSFERASE 25 U/L (15-37); BILIRUBIN,DIRECT 0.1 MG/DL (0.0-0.3); BILIRUBIN,TOTAL 0.3 MG/DL (0.2-1.0); PHOSPHORUS 7.8 MG/DL (2.5-4.9)
[2019-06-12 09:33] LABS: WHITE BLOOD COUNT 29.7 K/UL (4.8-10.8)
--- NOTE | 2019-06-12 10:28 | Surgery Progress Note ---
Surgery Progress Note Subjective Procedure Performed left femoral temporary HD catheter placement Additional Comments worse labs noted on levo max will need vaso fentanyl on support Objective Last 24 Hour Vital Signs Date Time Temp Pulse Resp B/P (MAP) Pulse Ox O2 Delivery O2 Flow Rate FiO2 06/12/19 08:38 124 35 100 06/12/19 07:43 82/53 06/12/19 07:21 111 29 100 06/12/19 07:00 110 30 111/70 (84) 100 06/12/19 07:00 28 91/69 Mechanical Ventilator 100 06/12/19 07:00 91/69 06/12/19 06:00 27 86/62 Mechanical Ventilator 100 06/12/19 06:00 86/62 06/12/19 06:00 118 86/62 (70) 06/12/19 05:55 108 27 81/50 (60) 100 06/12/19 05:50 109 24 85/48 (60) 100 06/12/19 05:45 105 45 74/48 (57) 100 06/12/19 05:40 108 20 87/54 (65) 100 06/12/19 05:35 107 32 88/58 (68) 100 06/12/19 05:30 106 33 77/51 (60) 100 06/12/19 05:25 107 26 83/54 (64) 100 06/12/19 05:22 108 27 83/51 (62) 100 06/12/19 05:20 109 28 66/50 (55) 100 06/12/19 05:15 117 10 81/61 (68) 100 06/12/19 05:10 88 26 100 06/12/19 05:10 117 48 118/66 (83) 97 06/12/19 05:05 110 24 77/51 (60) 100 06/12/19 05:00 24 110/71 Mechanical Ventilator 100 06/12/19 05:00 110/71 06/12/19 05:00 110 49 110/71 (84) 99 06/12/19 04:30 105 27 71/44 (53) 100 06/12/19 04:15 108 25 100/62 (75) 100 06/12/19 04:15 108 25 100/62 (75) 100 06/12/19 04:00 106 06/12/19 04:00 29 90/61 Mechanical Ventilator 100 06/12/19 04:00 90/61 06/12/19 04:00 98.6 106 29 90/61 (71) 98 06/12/19 04:00 106 29 90/61 (71) 98 06/12/19 03:45 99 23 91/66 (74) 96 06/12/19 03:44 26 151/80 Mechanical Ventilator 100 06/12/19 03:30 92 26 100 06/12/19 03:30 96 2 157/81 (106) 76 06/12/19 03:15 108 55 106/74 (85) 88 06/12/19 03:00 110/68 06/12/19 03:00 106 52 110/68 (82) 88 06/12/19 02:00 108 53 107/65 (79) 92 06/12/19 02:00 107/65 06/12/19 01:00 103 49 106/69 (81) 90 06/12/19 01:00 106/69 06/12/19 00:00 98.4 108 52 135/70 (91) 90 06/12/19 00:00 135/70 06/12/19 00:00 Non-Rebreather 15.0 06/11/19 23:18 140/79 06/11/19 23:00 102 48 90/54 (66) 91 06/11/19 23:00 90/56 06/11/19 22:00 97 43 147/75 (99) 90 06/11/19 22:00 147/75 06/11/19 21:00 94 43 144/66 (92) 88 06/11/19 21:00 144/66 06/11/19 20:00 Non-Rebreather 15.0 06/11/19 20:00 15.0 06/11/19 20:00 103/60 06/11/19 20:00 82 06/11/19 20:00 100 41 103/60 (74) 94 06/11/19 19:14 97 Non-Rebreather 15.0 100 06/11/19 19:00 108/63 06/11/19 19:00 98.8 87 35 108/63 (78) 91 06/11/19 18:00 84 32 105/58 (74) 93 06/11/19 18:00 117/65 06/11/19 17:30 99 40 98/64 (75) 84 06/11/19 17:00 102/61 06/11/19 17:00 87 33 102/61 (75) 06/11/19 16:30 91 42 133/67 (89) 06/11/19 16:00 15.0 06/11/19 16:00 98.6 96 32 134/78 (96) 06/11/19 16:00 65 06/11/19 16:00 134/78 06/11/19 16:00 Non-Rebreather 15.0 06/11/19 15:30 101 47 130/66 (87) 06/11/19 15:00 94 39 119/65 (83) 89 06/11/19 15:00 119/65 06/11/19 14:45 94 39 119/65 (83) 89 06/11/19 14:30 81 27 92/55 (67) 92 06/11/19 14:15 81 27 92/55 (67) 92 06/11/19 14:00 95 40 135/58 (83) 90 06/11/19 14:00 135/58 06/11/19 13:45 95 40 135/58 (83) 90 06/11/19 13:30 102 42 112/79 (90) 90 06/11/19 13:15 102 42 112/79 (90) 90 06/11/19 13:00 112/79 06/11/19 13:00 79 26 97/56 (70) 98 06/11/19 12:45 79 26 97/56 (70) 98 06/11/19 12:30 86 32 94/63 (73) 97 06/11/19 12:15 86 32 94/63 (73) 97 06/11/19 12:00 Non-Rebreather 15.0 06/11/19 12:00 97 06/11/19 12:00 15.0 06/11/19 12:00 114/61 06/11/19 12:00 98.6 88 33 114/61 (78) 94 06/11/19 11:45 89 35 146/94 (111) 95 06/11/19 11:30 146/94 06/11/19 11:30 89 35 146/94 (111) 95 06/11/19 11:15 76 28 117/62 (80) 98 06/11/19 11:06 117/62 06/11/19 11:00 76 28 117/62 (80) 98 06/11/19 11:00 117/62 06/11/19 10:45 76 28 116/57 (76) 99 06/11/19 10:30 76 28 116/57 (76) 99 I&O Intake and Output 06/11/19 06/12/19 19:00 07:00 Intake Total 298.54 ml 255.346 ml Output Total 30 ml Balance 268.54 ml 255.346 ml IV Total 238.54 ml 255.346 ml Other 60 ml Output Urine Total 30 ml # Voids 20 Dressing: other Wound: other Drains: other Cardiovascular: RSR Respiratory: decreased breath sounds Abdomen: soft, non-tender, present bowel sounds Extremities: no tenderness, no cyanosis, other Laboratory Tests Test 06/11/19 19:14 06/12/19 01:30 06/12/19 04:50 06/12/19 07:50 Arterial Blood pH 7.521 (7.350-7.450) 7.358 (7.350-7.450) 7.293 (7.350-7.450) Arterial Blood Partial Pressure CO2 18.8 mmHg (35.0-45.0) *L 28.0 mmHg (35.0-45.0) L 41.1 mmHg (35.0-45.0) Arterial Blood Partial Pressure O2 82.6 mmHg (75.0-100.0) 58.1 mmHg (75.0-100.0) L 103.1 mmHg (75.0-100.0) H Arterial Blood HCO3 15.0 mmol/L (22.0-26.0) *L 15.4 mmol/L (22.0-26.0) *L 19.5 mmol/L (22.0-26.0) L Arterial Blood Oxygen Saturation 97.1 % (95-100) 86.8 % (95-100) *L 96.4 % (95-100) Arterial Blood Base Excess -6.0 (-2-2) L -8.8 (-2-2) L -6.6 (-2-2) L Kosta Test Positive Positive Positive White Blood Count 29.7 K/UL (4.8-10.8) *H Red Blood Count 3.04 M/UL (4.70-6.10) L Hemoglobin 9.4 G/DL (14.2-18.0) L Hematocrit 27.4 % (42.0-52.0) L Mean Corpuscular Volume 90 FL (80-99) Mean Corpuscular Hemoglobin 30.7 PG (27.0-31.0) Mean Corpuscular Hemoglobin Concent 34.2 G/DL (32.0-36.0) Red Cell Distribution Width 15.5 % (11.6-14.8) H Platelet Count 141 K/UL (150-450) L Mean Platelet Volume 6.8 FL (6.5-10.1) Neutrophils (%) (Auto) % (45.0-75.0) Lymphocytes (%) (Auto) % (20.0-45.0) Monocytes (%) (Auto) % (1.0-10.0) Eosinophils (%) (Auto) % (0.0-3.0) Basophils (%) (Auto) % (0.0-2.0) Neutrophils % (Manual) Pending Lymphocytes % (Manual) Pending Platelet Estimate Pending Platelet Morphology Pending Sodium Level 142 MMOL/L (136-145) Potassium Level 3.5 MMOL/L (3.5-5.1) Chloride Level 95 MMOL/L (98-107) L Carbon Dioxide Level 23 MMOL/L (21-32) Anion Gap 24 mmol/L (5-15) H Blood Urea Nitrogen 81 mg/dL (7-18) H Creatinine 10.6 MG/DL (0.55-1.30) H Estimat Glomerular Filtration Rate 4.9 mL/min (>60) Glucose Level 216 MG/DL (74-106) H Calcium Level 8.8 MG/DL (8.5-10.1) Phosphorus Level 7.8 MG/DL (2.5-4.9) H Total Bilirubin 0.3 MG/DL (0.2-1.0) Direct Bilirubin 0.1 MG/DL (0.0-0.3) Aspartate Amino Transf (AST/SGOT) 25 U/L (15-37) Alanine Aminotransferase (ALT/SGPT) 9 U/L (12-78) L Alkaline Phosphatase 125 U/L (46-116) H Total Protein 8.0 G/DL (6.4-8.2) Albumin 1.9 G/DL (3.4-5.0) L Triglycerides Level 142 MG/DL (30-150) Plan Problems: (1) Suspected COVID-19 virus infection (2) HTN (hypertension) (3) CASSANDRA (acute kidney injury) Assessment & Plan: Needs urgent HD needs access patient okay and consented see note will follow with recs new line placed discussed with team and nephrology HD line functional when checked has TPA now please use appropriately Cathflo used again this flow during dialysis on 430 was low. Will monitor may need (4) Anemia in chronic kidney disease (CKD) (5) Anemia (6) Renal failure (7) Suspected COVID-19 virus infection (8) COVID-19 Assessment & Plan: COVID + c diff negative febrile leukocytosis renal insufficiency see above cont resp care Rx as per ID worsening on vent support now cxr noted on pressors prognosis guarded Yaniv Mast June 12, 2019 10:28
--- NOTE | 2019-06-12 10:31 | Operative Note - PDOC ---
Operative Note Operative Note Date of Operation/Procedure: June 12, 2019 Pre-op Diagnosis: COVID + sepsis hypotensive Procedure: right subclavian central venous catheter insertion Post-op Diagnosis: same as pre-op Surgeon: dario mast md Anesthesia: local Specimen: none Complications: none Condition: unstable Estimated Blood Loss: minimal Drains: none Implant(s) used?: No Indications for Procedure worsening, msof sepsis on levo needs another pressor no peripheral access meds, fluids, abx Description of Procedure patient made comfortable at bedside in supine trend position. line necessary emergently. left chest wall prepped and draped in standard surgical fashion. using finder needle the left subclavian vein was cannulated on first stick. venous blood flow noted. guidewire placed and needle removed. small skin incision made around wire and dilator used. triple lumen placed over guidewire without complication. wire removed and discarded. all ports flushed and aspirated well. line sutured in place and dressings applied. cxr ordered Dario Mast June 12, 2019 10:31
[2019-06-12] MEDS: Vasopressin 100 UNITS in NS 95 ML IV SCH (11:38)
[2019-06-12] MEDS ORDERED: fentaNYL Citrate 2,500 MCG in NS 200 ML IV SCH (12:00)
[2019-06-12] MEDS ORDERED: Levofloxacin 750mg tab NG SCH (12:00)
--- NOTE | 2019-06-12 13:35 | Nephrology Progress Note ---
Assessment/Plan Problem List: (1) CASSANDRA (acute kidney injury) (2) Anemia in chronic kidney disease (CKD) (3) HTN (hypertension) (4) COVID-19 Assessment Acute renal failure most likely superimposed on chronic kidney disease Suspected COVID-19 virus infection Possible Pneumonia, lymphopenia, elevated AST Cardiomegaly, possible CHF COPD Hypertension Anemia, most likely related to chronic kidney disease Plan Positive for COVID 28 June 2: Patient now intubated on mechanical ventilation Discussed with RN Patient received dialysis yesterday June 10 next hemodialysis June 12 Blood pressure better maintained however still on pressors Continue per consultants Previously patient received dialysis last evening June 05, next dialysis June 07 which was incomplete due to patient's hypotension Will start on midodrine for blood pressure support. Meanwhile continue other pressors as needed Previously Patient is doing poorly, septic, white blood cells are rising, Hypotension somewhat improved We will keep n.p.o. , NG tube for medications, and change medication to IV as needed Patient remains full code Monitor vancomycin level Previously: Patient pulled out his femoral catheter yesterday June 03 which was reinserted by Dr. Mast Patient scheduled for dialysis again June 04, which again was not done due to dialysis nurse citing catheter malfunction Meanwhile continue management per ID, pulmonary , and psych. Meanwhile white blood cell count is rising. Patient blood pressure borderline low. Will check ABG Previously May 31 : I believe patient need dialysis treatment He however needs to competency assessment if can make decisions or not I will communicate with Dr. Mulligan Previously: Per pulmonary and ID advice Adjust blood pressure medication Renal diet Anemia work-up 2D echocardiogram refused Kidney ultrasound refused Jules catheter Urine studies Per orders Subjective ROS Limited/Unobtainable: Yes Objective Objective Last 24 Hour Vital Signs Date Time Temp Pulse Resp B/P (MAP) Pulse Ox O2 Delivery O2 Flow Rate FiO2 06/12/19 13:28 36 Mechanical Ventilator 100 06/12/19 13:27 72/54 06/12/19 12:30 104 32 97/60 (72) 100 06/12/19 12:15 97 29 95/78 (84) 100 06/12/19 12:00 100 06/12/19 12:00 103 34 79/50 (60) 100 06/12/19 12:00 99 06/12/19 12:00 99.8 97 27 90/64 (73) 100 06/12/19 11:45 107 47 90/63 (72) 100 06/12/19 11:30 107 30 74/55 (61) 100 06/12/19 11:15 106 40 80/59 (66) 100 06/12/19 11:00 80/52 06/12/19 11:00 107 50 80/59 (66) 100 06/12/19 10:48 112 33 100 06/12/19 10:30 109 36 85/46 (59) 100 06/12/19 10:15 116 44 80/59 (66) 100 06/12/19 10:00 60 72/56 Mechanical Ventilator 100 06/12/19 10:00 72/56 06/12/19 10:00 112 51 80/59 (66) 100 06/12/19 09:45 120 59 72/56 (61) 100 06/12/19 09:30 121 60 73/59 (64) 100 06/12/19 09:15 124 63 94/79 (84) 100 06/12/19 09:00 56 72/56 Mechanical Ventilator 100 06/12/19 09:00 72/56 06/12/19 09:00 126 65 84/59 (67) 100 06/12/19 08:45 126 64 110/70 (83) 100 06/12/19 08:38 124 35 100 06/12/19 08:30 124 62 100/61 (74) 100 06/12/19 08:15 119 56 87/54 (65) 100 06/12/19 08:00 99.6 116 40 79/55 (63) 100 06/12/19 08:00 100 06/12/19 08:00 115 06/12/19 07:43 82/53 06/12/19 07:21 111 29 100 06/12/19 07:00 110 30 111/70 (84) 100 06/12/19 07:00 28 91/69 Mechanical Ventilator 100 06/12/19 07:00 91/69 06/12/19 06:00 27 86/62 Mechanical Ventilator 100 06/12/19 06:00 86/62 06/12/19 06:00 118 86/62 (70) 06/12/19 05:55 108 27 81/50 (60) 100 06/12/19 05:50 109 24 85/48 (60) 100 06/12/19 05:45 105 45 74/48 (57) 100 06/12/19 05:40 108 20 87/54 (65) 100 06/12/19 05:35 107 32 88/58 (68) 100 06/12/19 05:30 106 33 77/51 (60) 100 06/12/19 05:25 107 26 83/54 (64) 100 06/12/19 05:22 108 27 83/51 (62) 100 06/12/19 05:20 109 28 66/50 (55) 100 06/12/19 05:15 117 10 81/61 (68) 100 06/12/19 05:10 88 26 100 06/12/19 05:10 117 48 118/66 (83) 97 06/12/19 05:05 110 24 77/51 (60) 100 06/12/19 05:00 24 110/71 Mechanical Ventilator 100 06/12/19 05:00 110/71 06/12/19 05:00 110 49 110/71 (84) 99 06/12/19 04:30 105 27 71/44 (53) 100 06/12/19 04:15 108 25 100/62 (75) 100 06/12/19 04:15 108 25 100/62 (75) 100 06/12/19 04:00 106 06/12/19 04:00 29 90/61 Mechanical Ventilator 100 06/12/19 04:00 90/61 06/12/19 04:00 98.6 106 29 90/61 (71) 98 06/12/19 04:00 106 29 90/61 (71) 98 06/12/19 03:45 99 23 91/66 (74) 96 06/12/19 03:44 26 151/80 Mechanical Ventilator 100 06/12/19 03:30 92 26 100 06/12/19 03:30 96 2 157/81 (106) 76 06/12/19 03:15 108 55 106/74 (85) 88 06/12/19 03:00 110/68 06/12/19 03:00 106 52 110/68 (82) 88 06/12/19 02:00 108 53 107/65 (79) 92 06/12/19 02:00 107/65 06/12/19 01:00 103 49 106/69 (81) 90 06/12/19 01:00 106/69 5/2/20 00:00 98.4 108 52 135/70 (91) 90 06/12/19 00:00 135/70 06/12/19 00:00 Non-Rebreather 15.0 06/11/19 23:18 140/79 06/11/19 23:00 102 48 90/54 (66) 91 06/11/19 23:00 90/56 06/11/19 22:00 97 43 147/75 (99) 90 06/11/19 22:00 147/75 06/11/19 21:00 94 43 144/66 (92) 88 06/11/19 21:00 144/66 06/11/19 20:00 Non-Rebreather 15.0 06/11/19 20:00 15.0 06/11/19 20:00 103/60 06/11/19 20:00 82 06/11/19 20:00 100 41 103/60 (74) 94 06/11/19 19:14 97 Non-Rebreather 15.0 100 06/11/19 19:00 108/63 06/11/19 19:00 98.8 87 35 108/63 (78) 91 06/11/19 18:00 84 32 105/58 (74) 93 06/11/19 18:00 117/65 06/11/19 17:30 99 40 98/64 (75) 84 06/11/19 17:00 102/61 06/11/19 17:00 87 33 102/61 (75) 06/11/19 16:30 91 42 133/67 (89) 06/11/19 16:00 15.0 06/11/19 16:00 98.6 96 32 134/78 (96) 06/11/19 16:00 65 06/11/19 16:00 134/78 06/11/19 16:00 Non-Rebreather 15.0 06/11/19 15:30 101 47 130/66 (87) 06/11/19 15:00 94 39 119/65 (83) 89 06/11/19 15:00 119/65 06/11/19 14:45 94 39 119/65 (83) 89 06/11/19 14:30 81 27 92/55 (67) 92 5/1/20 14:15 81 27 92/55 (67) 92 06/11/19 14:00 95 40 135/58 (83) 90 06/11/19 14:00 135/58 06/11/19 13:45 95 40 135/58 (83) 90 Intake and Output 06/11/19 06/12/19 19:00 07:00 Intake Total 298.54 ml 255.346 ml Output Total 30 ml Balance 268.54 ml 255.346 ml IV Total 238.54 ml 255.346 ml Other 60 ml Output Urine Total 30 ml # Voids 20 Laboratory Tests 06/11/19 19:14: Arterial Blood pH 7.521H, Arterial Blood Partial Pressure CO2 18.8*L, Arterial Blood Partial Pressure O2 82.6, Arterial Blood HCO3 15.0*L, Arterial Blood Oxygen Saturation 97.1, Arterial Blood Base Excess -6.0L, Kosta Test Positive 06/12/19 01:30: Arterial Blood pH 7.358, Arterial Blood Partial Pressure CO2 28.0L, Arterial Blood Partial Pressure O2 58.1L, Arterial Blood HCO3 15.4*L, Arterial Blood Oxygen Saturation 86.8*L, Arterial Blood Base Excess -8.8L, Kosta Test Positive 06/12/19 04:50: Arterial Blood pH 7.293L, Arterial Blood Partial Pressure CO2 41.1, Arterial Blood Partial Pressure O2 103.1H, Arterial Blood HCO3 19.5L, Arterial Blood Oxygen Saturation 96.4, Arterial Blood Base Excess -6.6L, Kosta Test Positive 06/12/19 07:50: White Blood Count 29.7*H, Red Blood Count 3.04L, Hemoglobin 9.4L, Hematocrit 27.4L, Mean Corpuscular Volume 90, Mean Corpuscular Hemoglobin 30.7, Mean Corpuscular Hemoglobin Concent 34.2, Red Cell Distribution Width 15.5H, Platelet Count 141L, Mean Platelet Volume 6.8, Neutrophils (%) (Auto) , Lymphocytes (%) (Auto) , Monocytes (%) (Auto) , Eosinophils (%) (Auto) , Basophils (%) (Auto) , Neutrophils % (Manual) [Pending], Lymphocytes % (Manual) [Pending], Platelet Estimate [Pending], Platelet Morphology [Pending], Sodium Level 142, Potassium Level 3.5, Chloride Level 95L, Carbon Dioxide Level 23, Anion Gap 24H, Blood Urea Nitrogen 81H, Creatinine 10.6H, Estimat Glomerular Filtration Rate 4.9, Glucose Level 216H, Calcium Level 8.8, Phosphorus Level 7.8H, Total Bilirubin 0.3, Direct Bilirubin 0.1, Aspartate Amino Transf (AST/ SGOT) 25, Alanine Aminotransferase (ALT/SGPT) 9L, Alkaline Phosphatase 125H, Total Protein 8.0, Albumin 1.9L, Triglycerides Level 142 Height (Feet): 6 Height (Inches): 1.00 Weight (Pounds): 189 General Appearance: no apparent distress EENT: other - Patient is now intubated on ventilator Cardiovascular: tachycardia Respiratory/Chest: decreased breath sounds Abdomen: distended Objective No change Mic Cole MD June 12, 2019 13:35
--- NOTE | 2019-06-12 14:41 | Cardiac Electrophysiology PN ---
Assessment/Plan Assessment/Plan 1. Elevated troponin. Troponin on May 27 and May 30 were negative; however , on June 01, it was elevated at 0.074. Repeat 0.05. No chest pain. Due to renal failure. On Aspirin. QT 493. Plaquenil DCed. Echo EF 60% 2. Septic shock. Maxed out on Levo today 3. End-stage renal disease, on hemodialysis per Dr. Cole. 4. Respiratory failure due to COVID-19 positive pneumonia. On the Vent. Fu by Dr. Ted Leyva and Dr. Mckeon. 5. MRSA carrier. 6. COPD. 7. Anemia. 8. Depression. DW RN Subjective Subjective In Covid isolation in ICU, intubated today on 100% Fio2. In SR. S/P 2 units of PRBC and HD . Maxed out on Levphed Objective Last 24 Hour Vital Signs Date Time Temp Pulse Resp B/P (MAP) Pulse Ox O2 Delivery O2 Flow Rate FiO2 06/12/19 14:15 97 31 119/69 (86) 100 06/12/19 14:00 98 54 99/66 (77) 100 06/12/19 13:45 103 38 97/65 (76) 100 06/12/19 13:30 109 47 82/60 (67) 100 06/12/19 13:28 36 Mechanical Ventilator 100 06/12/19 13:27 72/54 06/12/19 13:20 111 33 100 06/12/19 13:15 112 46 83/62 (69) 100 06/12/19 13:00 111 41 82/60 (67) 100 06/12/19 12:30 104 32 97/60 (72) 100 06/12/19 12:15 97 29 95/78 (84) 100 06/12/19 12:00 100 06/12/19 12:00 103 34 79/50 (60) 100 06/12/19 12:00 99 06/12/19 12:00 99.8 97 27 90/64 (73) 100 06/12/19 11:45 107 47 90/63 (72) 100 06/12/19 11:30 107 30 74/55 (61) 100 06/12/19 11:15 106 40 80/59 (66) 100 06/12/19 11:00 80/52 06/12/19 11:00 107 50 80/59 (66) 100 06/12/19 10:48 112 33 100 06/12/19 10:30 109 36 85/46 (59) 100 06/12/19 10:15 116 44 80/59 (66) 100 06/12/19 10:00 60 72/56 Mechanical Ventilator 100 06/12/19 10:00 72/56 06/12/19 10:00 112 51 80/59 (66) 100 06/12/19 09:45 120 59 72/56 (61) 100 06/12/19 09:30 121 60 73/59 (64) 100 06/12/19 09:15 124 63 94/79 (84) 100 06/12/19 09:00 56 72/56 Mechanical Ventilator 100 06/12/19 09:00 72/56 06/12/19 09:00 126 65 84/59 (67) 100 06/12/19 08:45 126 64 110/70 (83) 100 06/12/19 08:38 124 35 100 06/12/19 08:30 124 62 100/61 (74) 100 06/12/19 08:15 119 56 87/54 (65) 100 06/12/19 08:00 99.6 116 40 79/55 (63) 100 06/12/19 08:00 100 06/12/19 08:00 115 06/12/19 07:43 82/53 06/12/19 07:21 111 29 100 06/12/19 07:00 110 30 111/70 (84) 100 06/12/19 07:00 28 91/69 Mechanical Ventilator 100 06/12/19 07:00 91/69 06/12/19 06:00 27 86/62 Mechanical Ventilator 100 06/12/19 06:00 86/62 06/12/19 06:00 118 86/62 (70) 06/12/19 05:55 108 27 81/50 (60) 100 06/12/19 05:50 109 24 85/48 (60) 100 06/12/19 05:45 105 45 74/48 (57) 100 06/12/19 05:40 108 20 87/54 (65) 100 06/12/19 05:35 107 32 88/58 (68) 100 06/12/19 05:30 106 33 77/51 (60) 100 06/12/19 05:25 107 26 83/54 (64) 100 06/12/19 05:22 108 27 83/51 (62) 100 06/12/19 05:20 109 28 66/50 (55) 100 06/12/19 05:15 117 10 81/61 (68) 100 06/12/19 05:10 88 26 100 06/12/19 05:10 117 48 118/66 (83) 97 06/12/19 05:05 110 24 77/51 (60) 100 06/12/19 05:00 24 110/71 Mechanical Ventilator 100 06/12/19 05:00 110/71 06/12/19 05:00 110 49 110/71 (84) 99 06/12/19 04:30 105 27 71/44 (53) 100 06/12/19 04:15 108 25 100/62 (75) 100 06/12/19 04:15 108 25 100/62 (75) 100 06/12/19 04:00 106 06/12/19 04:00 29 90/61 Mechanical Ventilator 100 06/12/19 04:00 90/61 06/12/19 04:00 98.6 106 29 90/61 (71) 98 06/12/19 04:00 106 29 90/61 (71) 98 06/12/19 03:45 99 23 91/66 (74) 96 06/12/19 03:44 26 151/80 Mechanical Ventilator 100 06/12/19 03:30 92 26 100 06/12/19 03:30 96 2 157/81 (106) 76 06/12/19 03:15 108 55 106/74 (85) 88 06/12/19 03:00 110/68 06/12/19 03:00 106 52 110/68 (82) 88 06/12/19 02:00 108 53 107/65 (79) 92 06/12/19 02:00 107/65 06/12/19 01:00 103 49 106/69 (81) 90 06/12/19 01:00 106/69 06/12/19 00:00 98.4 108 52 135/70 (91) 90 06/12/19 00:00 135/70 06/12/19 00:00 Non-Rebreather 15.0 06/11/19 23:18 140/79 06/11/19 23:00 102 48 90/54 (66) 91 06/11/19 23:00 90/56 06/11/19 22:00 97 43 147/75 (99) 90 06/11/19 22:00 147/75 06/11/19 21:00 94 43 144/66 (92) 88 06/11/19 21:00 144/66 06/11/19 20:00 Non-Rebreather 15.0 06/11/19 20:00 15.0 06/11/19 20:00 103/60 06/11/19 20:00 82 06/11/19 20:00 100 41 103/60 (74) 94 06/11/19 19:14 97 Non-Rebreather 15.0 100 06/11/19 19:00 108/63 06/11/19 19:00 98.8 87 35 108/63 (78) 91 06/11/19 18:00 84 32 105/58 (74) 93 06/11/19 18:00 117/65 06/11/19 17:30 99 40 98/64 (75) 84 06/11/19 17:00 102/61 06/11/19 17:00 87 33 102/61 (75) 06/11/19 16:30 91 42 133/67 (89) 06/11/19 16:00 15.0 06/11/19 16:00 98.6 96 32 134/78 (96) 06/11/19 16:00 65 06/11/19 16:00 134/78 06/11/19 16:00 Non-Rebreather 15.0 06/11/19 15:30 101 47 130/66 (87) 06/11/19 15:00 94 39 119/65 (83) 89 06/11/19 15:00 119/65 06/11/19 14:45 94 39 119/65 (83) 89 Intake and Output 06/11/19 06/12/19 19:00 07:00 Intake Total 298.54 ml 255.346 ml Output Total 30 ml Balance 268.54 ml 255.346 ml IV Total 238.54 ml 255.346 ml Other 60 ml Output Urine Total 30 ml # Voids 20 Laboratory Tests Test 06/11/19 19:14 06/12/19 01:30 06/12/19 04:50 06/12/19 07:50 Arterial Blood pH 7.521 (7.350-7.450) 7.358 (7.350-7.450) 7.293 (7.350-7.450) Arterial Blood Partial Pressure CO2 18.8 mmHg (35.0-45.0) *L 28.0 mmHg (35.0-45.0) L 41.1 mmHg (35.0-45.0) Arterial Blood Partial Pressure O2 82.6 mmHg (75.0-100.0) 58.1 mmHg (75.0-100.0) L 103.1 mmHg (75.0-100.0) H Arterial Blood HCO3 15.0 mmol/L (22.0-26.0) *L 15.4 mmol/L (22.0-26.0) *L 19.5 mmol/L (22.0-26.0) L Arterial Blood Oxygen Saturation 97.1 % (95-100) 86.8 % (95-100) *L 96.4 % (95-100) Arterial Blood Base Excess -6.0 (-2-2) L -8.8 (-2-2) L -6.6 (-2-2) L K[place] Test Positive Positive Positive White Blood Count 29.7 K/UL (4.8-10.8) *H Red Blood Count 3.04 M/UL (4.70-6.10) L Hemoglobin 9.4 G/DL (14.2-18.0) L Hematocrit 27.4 % (42.0-52.0) L Mean Corpuscular Volume 90 FL (80-99) Mean Corpuscular Hemoglobin 30.7 PG (27.0-31.0) Mean Corpuscular Hemoglobin Concent 34.2 G/DL (32.0-36.0) Red Cell Distribution Width 15.5 % (11.6-14.8) H Platelet Count 141 K/UL (150-450) L Mean Platelet Volume 6.8 FL (6.5-10.1) Neutrophils (%) (Auto) % (45.0-75.0) Lymphocytes (%) (Auto) % (20.0-45.0) Monocytes (%) (Auto) % (1.0-10.0) Eosinophils (%) (Auto) % (0.0-3.0) Basophils (%) (Auto) % (0.0-2.0) Differential Total Cells Counted 100 Neutrophils % (Manual) 92 % (45-75) H Lymphocytes % (Manual) 4 % (20-45) L Monocytes % (Manual) 4 % (1-10) Eosinophils % (Manual) 0 % (0-3) Basophils % (Manual) 0 % (0-2) Metamyelocytes % 2 % (0-0) H Myelocytes % 2 % (0-0) H Band Neutrophils 0 % (0-8) Platelet Estimate Decreased L Platelet Morphology Normal Anisocytosis 1+ Sodium Level 142 MMOL/L (136-145) Potassium Level 3.5 MMOL/L (3.5-5.1) Chloride Level 95 MMOL/L (98-107) L Carbon Dioxide Level 23 MMOL/L (21-32) Anion Gap 24 mmol/L (5-15) H Blood Urea Nitrogen 81 mg/dL (7-18) H Creatinine 10.6 MG/DL (0.55-1.30) H Estimat Glomerular Filtration Rate 4.9 mL/min (>60) Glucose Level 216 MG/DL (74-106) H Calcium Level 8.8 MG/DL (8.5-10.1) Phosphorus Level 7.8 MG/DL (2.5-4.9) H Total Bilirubin 0.3 MG/DL (0.2-1.0) Direct Bilirubin 0.1 MG/DL (0.0-0.3) Aspartate Amino Transf (AST/SGOT) 25 U/L (15-37) Alanine Aminotransferase (ALT/SGPT) 9 U/L (12-78) L Alkaline Phosphatase 125 U/L (46-116) H Total Protein 8.0 G/DL (6.4-8.2) Albumin 1.9 G/DL (3.4-5.0) L Triglycerides Level 142 MG/DL (30-150) Objective HEAD AND NECK: No JVD.Orally intubated LUNGS: Decreased breath sounds. CARDIOVASCULAR: Regular S1 and S2. Tachycardic. ABDOMEN: Soft. EXTREMITIES: No pitting edema. New Left [facility] Gio Engle MD June 12, 2019 14:41
[2019-06-12] MEDS ORDERED: Tubing IV Secondary IV ONE (15:55)
[2019-06-12] MEDS ORDERED: NS 275ml ONE ×2 (15:55→15:56)
--- NOTE | 2019-06-12 19:18 | Pulmonolgy Critical Care Note ---
Critical Care - Asmt/Plan Assessment/Plan: Pulmonary CCM Progress Note HPI: Patient is a 68 year old man, [facility] resident, admitted c/o shortness of breath, cough, noted to have Covid 19 Pneumonia. S/p extubation, remains on pressors ID following On HD per Renal Past Medical History: COPD, CKD, Hypertension, Anemia Received HD today Hypotension requiring pressors, in ICU Persistently elevated WCC Allergies: No Known Allergies Improving Pulmonary Status on HD Physical Exam Vital Signs Noted Secdated on ventilator WDWN, no distress HEENT: NCAT,moist mm Chest: Occasional rhonchi Heart: HS1, HS2, RRR Abdomen: SNTND, no masses Extremities: Well perfused, mild edema PSYCHIATRIC NURSING AIDE: No focal signs, no seizures, seadted Impression: COVID-19 virus infection Pneumonia Respiratory failure on ventilator Volume overload - on HD Cardiomegaly Lymphopenia Elevated AST COPD Chronic Kidney Disease, worsening renal function - now receiving HD Hypertension Worsening anemia Plan: Antibiotics per ID HD Pressors PRN O2 PRN ABG PRN PRINCIPAL CONSULTANT Medications 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 Monitor cultures/viral studies PPX Hemodialysis per Renal Psychiatry following [facility] - [facility] requested for when available Laboratory Tests Noted: CXR: Hypoventilatory exam, interstitial changes, cardiomegaly, worseing infiltrates Subjective ROS Limited/Unobtainable: No Constitutional: Denies: fever Respiratory: Reports: dry cough, shortness of breath Gastrointestinal/Abdominal: Reports: diarrhea, other - colace was stopped Psychiatric: Reports: other - refuses labs Allergies: Coded Allergies: No Known Allergies (Unverified , 05/28/19) All Systems: reviewed and negative except above Labs noted 06/11/19 03:34: White Blood Count 28.2*H, Red Blood Count 3.25L, Hemoglobin 10.0L, Hematocrit 28.5L, Mean Corpuscular Volume 88, Mean Corpuscular Hemoglobin 30.7, Mean Corpuscular Hemoglobin Concent 35.0, Red Cell Distribution Width 13.6, Platelet Count 172, Mean Platelet Volume 7.4, Neutrophils (%) (Auto) , Lymphocytes (%) ( Auto) , Monocytes (%) (Auto) , Eosinophils (%) (Auto) , Basophils (%) (Auto) , Differential Total Cells Counted 100, Neutrophils % (Manual) 84H, Lymphocytes % (Manual) 3L, Monocytes % (Manual) 2, Eosinophils % (Manual) 1, Basophils % ( Manual) 0, Metamyelocytes % 4H, Myelocytes % 4H, Band Neutrophils 2, Platelet Estimate Adequate, Platelet Morphology Normal, Sodium Level 143, Potassium Level 4.0, Chloride Level 98, Carbon Dioxide Level 22, Anion Gap 23H, Blood Urea Nitrogen 86H, Creatinine 10.8H, Estimat Glomerular Filtration Rate 4.8, Glucose Level 178H, Uric Acid 8.5H, Calcium Level 9.2, Phosphorus Level 7.1H, Magnesium Level 2.6H, Total Bilirubin 0.3, Gamma Glutamyl Transpeptidase 6, Aspartate Amino Transf (AST/SGOT) 30, Alanine Aminotransferase (ALT/SGPT) 14, Alkaline Phosphatase 113, C-Reactive Protein, Quantitative 9.6H, Pro-B-Type Natriuretic Peptide 7775H, Total Protein 8.6H, Albumin 2.1L, Globulin 6.5, Albumin/Globulin Ratio 0.3L 06/11/19 19:14: Arterial Blood pH 7.521H, Arterial Blood Partial Pressure CO2 18.8*L, Arterial Blood Partial Pressure O2 82.6, Arterial Blood HCO3 15.0*L, Arterial Blood Oxygen Saturation 97.1, Arterial Blood Base Excess -6.0L, Kosta Test Positive 06/12/19 01:30: Arterial Blood pH 7.358, Arterial Blood Partial Pressure CO2 28.0L, Arterial Blood Partial Pressure O2 58.1L, Arterial Blood HCO3 15.4*L, Arterial Blood Oxygen Saturation 86.8*L, Arterial Blood Base Excess -8.8L, Kosta Test Positive Current Medications Medications (Trade) Dose Ordered Sig/Anthony Route PRN Reason Start Time Stop Time Status Last Admin Dose Admin Acetaminophen (Tylenol) 650 mg Q6H PRN ORAL MILD PAIN/Temp >100.5 06/07/19 00:00 07/07/19 00:00 Albumin Human 250 ml @ 0 mls/hr Q0M PRN IV For hypotension 06/06/19 21:15 09/04/19 12:44 Albuterol Sulfate (Proventil MDI) 2 puff Q4HRT INH 06/06/19 23:00 08/30/19 18:59 06/11/19 09:15 Allopurinol (allopurinoL) 300 mg DAILY NG 06/08/19 09:30 07/08/19 09:29 06/11/19 09:19 Chlorhexidine Gluconate (Michelle-Hex 2%) 1 applic DAILY@2000 TOPIC 06/07/19 20:00 09/05/19 19:59 06/11/19 20:45 Divalproex Sodium (Depakote) 250 mg EVERY 12 HOURS ORAL 06/12/19 09:00 07/12/19 08:59 Docusate Sodium (Colace) 100 mg THREE TIMES A DAY NG 06/07/19 13:00 07/07/19 12:59 06/11/19 13:00 Enoxaparin Sodium (Lovenox) 30 mg DAILY SUBQ 06/07/19 09:00 08/27/19 08:59 06/11/19 09:14 Epoetin Aftab (Epoetin Aftab(ESRD on dialysis)) 10,000 unit SUBQ 06/07/19 21:00 08/31/19 20:59 06/11/19 20:45 Hydralazine HCl (Apresoline) 10 mg Q4H PRN IV Blood pressure over 160 systol 06/07/19 10:15 09/05/19 10:14 Midodrine (Pro-Amatine) 10 mg THREE TIMES A DAY NG 06/09/19 13:00 09/07/19 12:59 06/11/19 17:31 Norepinephrine Bitartrate 8 mg/ Dextrose 558 ml @ 0 mls/hr Q24H IV 06/07/19 09:00 07/07/19 08:59 06/11/19 11:06 Pantoprazole (Protonix) 40 mg Q12HR IVP 06/07/19 21:00 07/07/19 08:59 06/11/19 20:45 Salmeterol Xinafoate/ Fluticasone (Advair 100/50 Diskus) 1 puffs BID INH 06/07/19 09:00 08/27/19 08:59 06/11/19 09:14 Sevelamer Carbonate (Renvela) 1,600 mg THREE TIMES A DAY NG 06/07/19 13:00 09/05/19 12:59 06/11/19 17:31 Sodium Citrate (Bicitra) 30 ml Q8HR NG 06/07/19 14:00 06/28/19 11:59 06/11/19 22:05 Critical Care - Objective Last 24 Hour Vital Signs Date Time Temp Pulse Resp B/P (MAP) Pulse Ox O2 Delivery O2 Flow Rate FiO2 06/12/19 18:48 77/52 06/12/19 18:45 87 23 77/52 (60) 100 06/12/19 18:30 87 23 77/52 (60) 100 06/12/19 18:15 80 26 96/51 (66) 100 06/12/19 18:00 80 27 93/50 (64) 100 06/12/19 17:45 86 34 85/46 (59) 100 06/12/19 17:30 78 26 85 06/12/19 17:30 84 27 102/61 (75) 100 06/12/19 17:00 78 26 92/56 (68) 100 06/12/19 17:00 28 Mechanical Ventilator 100 06/12/19 17:00 29 92/56 Mechanical Ventilator 100 06/12/19 17:00 92/56 06/12/19 16:45 79 26 89/54 (66) 100 06/12/19 16:30 79 27 87/50 (62) 100 06/12/19 16:15 80 26 86/49 (61) 100 06/12/19 16:00 100 06/12/19 16:00 81 06/12/19 16:00 99.2 81 26 71/48 (56) 100 06/12/19 16:00 28 Mechanical Ventilator 100 06/12/19 16:00 29 71/48 Mechanical Ventilator 100 06/12/19 16:00 71/48 06/12/19 15:45 82 26 70/44 (53) 100 06/12/19 15:30 82 26 70/42 (51) 100 06/12/19 15:16 107 34 100 06/12/19 15:15 90 26 72/44 (53) 100 06/12/19 15:00 52 Mechanical Ventilator 100 06/12/19 15:00 49 70/52 Mechanical Ventilator 100 06/12/19 15:00 70/52 06/12/19 15:00 102 30 105/70 (82) 100 06/12/19 14:45 104 32 136/80 (98) 100 06/12/19 14:30 102 55 131/86 (101) 100 06/12/19 14:15 97 31 119/69 (86) 100 06/12/19 14:00 36 Mechanical Ventilator 100 06/12/19 14:00 52 72/54 Mechanical Ventilator 100 06/12/19 14:00 92/56 06/12/19 14:00 98 54 99/66 (77) 100 06/12/19 13:58 99.6 06/12/19 13:45 103 38 97/65 (76) 100 06/12/19 13:30 109 47 82/60 (67) 100 06/12/19 13:28 36 Mechanical Ventilator 100 06/12/19 13:27 72/54 06/12/19 13:20 111 33 100 06/12/19 13:15 112 46 83/62 (69) 100 06/12/19 13:00 72/54 06/12/19 13:00 111 41 82/60 (67) 100 06/12/19 12:30 104 32 97/60 (72) 100 06/12/19 12:15 97 29 95/78 (84) 100 06/12/19 12:00 100 06/12/19 12:00 103 34 79/50 (60) 100 06/12/19 12:00 72/52 06/12/19 12:00 99 06/12/19 12:00 99.8 97 27 90/64 (73) 100 06/12/19 11:45 107 47 90/63 (72) 100 06/12/19 11:30 107 30 74/55 (61) 100 06/12/19 11:15 106 40 80/59 (66) 100 06/12/19 11:00 80/52 06/12/19 11:00 107 50 80/59 (66) 100 06/12/19 10:48 112 33 100 06/12/19 10:30 109 36 85/46 (59) 100 06/12/19 10:15 116 44 80/59 (66) 100 06/12/19 10:00 60 72/56 Mechanical Ventilator 100 06/12/19 10:00 72/56 06/12/19 10:00 112 51 80/59 (66) 100 06/12/19 09:45 120 59 72/56 (61) 100 06/12/19 09:30 121 60 73/59 (64) 100 06/12/19 09:15 124 63 94/79 (84) 100 06/12/19 09:00 56 72/56 Mechanical Ventilator 100 06/12/19 09:00 72/56 06/12/19 09:00 126 65 84/59 (67) 100 06/12/19 08:45 126 64 110/70 (83) 100 06/12/19 08:38 124 35 100 06/12/19 08:30 124 62 100/61 (74) 100 06/12/19 08:15 119 56 87/54 (65) 100 06/12/19 08:00 99.6 116 40 79/55 (63) 100 06/12/19 08:00 100 06/12/19 08:00 115 06/12/19 07:43 82/53 06/12/19 07:21 111 29 100 06/12/19 07:00 110 30 111/70 (84) 100 06/12/19 07:00 28 91/69 Mechanical Ventilator 100 06/12/19 07:00 91/69 06/12/19 06:00 27 86/62 Mechanical Ventilator 100 06/12/19 06:00 86/62 06/12/19 06:00 118 86/62 (70) 06/12/19 05:55 108 27 81/50 (60) 100 06/12/19 05:50 109 24 85/48 (60) 100 06/12/19 05:45 105 45 74/48 (57) 100 06/12/19 05:40 108 20 87/54 (65) 100 06/12/19 05:35 107 32 88/58 (68) 100 06/12/19 05:30 106 33 77/51 (60) 100 06/12/19 05:25 107 26 83/54 (64) 100 06/12/19 05:22 108 27 83/51 (62) 100 06/12/19 05:20 109 28 66/50 (55) 100 06/12/19 05:15 117 10 81/61 (68) 100 06/12/19 05:10 88 26 100 06/12/19 05:10 117 48 118/66 (83) 97 06/12/19 05:05 110 24 77/51 (60) 100 06/12/19 05:00 24 110/71 Mechanical Ventilator 100 06/12/19 05:00 110/71 06/12/19 05:00 110 49 110/71 (84) 99 06/12/19 04:30 105 27 71/44 (53) 100 06/12/19 04:15 108 25 100/62 (75) 100 06/12/19 04:15 108 25 100/62 (75) 100 06/12/19 04:00 106 06/12/19 04:00 29 90/61 Mechanical Ventilator 100 06/12/19 04:00 90/61 06/12/19 04:00 98.6 106 29 90/61 (71) 98 06/12/19 04:00 106 29 90/61 (71) 98 06/12/19 03:45 99 23 91/66 (74) 96 06/12/19 03:44 26 151/80 Mechanical Ventilator 100 06/12/19 03:30 92 26 100 06/12/19 03:30 96 2 157/81 (106) 76 06/12/19 03:15 108 55 106/74 (85) 88 06/12/19 03:00 110/68 06/12/19 03:00 106 52 110/68 (82) 88 06/12/19 02:00 108 53 107/65 (79) 92 06/12/19 02:00 107/65 06/12/19 01:00 103 49 106/69 (81) 90 06/12/19 01:00 106/69 06/12/19 00:00 98.4 108 52 135/70 (91) 90 06/12/19 00:00 135/70 06/12/19 00:00 Non-Rebreather 15.0 06/11/19 23:18 140/79 06/11/19 23:00 102 48 90/54 (66) 91 06/11/19 23:00 90/56 06/11/19 22:00 97 43 147/75 (99) 90 06/11/19 22:00 147/75 06/11/19 21:00 94 43 144/66 (92) 88 06/11/19 21:00 144/66 06/11/19 20:00 Non-Rebreather 15.0 06/11/19 20:00 15.0 06/11/19 20:00 103/60 06/11/19 20:00 82 06/11/19 20:00 100 41 103/60 (74) 94 Critical Care - Subjective ROS Limited/Unobtainable: Yes Condition: critical IV Access: central EKG Rhythm: Sinus Rhythm FI02: 85 Vent Support Breath Rate: 26 Vent Support Mode: AC Vent Tidal Volume: 500 Sputum Amount: Small PEEP: 8.0 PIP: 25 I&O: Intake and Output 06/11/19 06/12/19 19:00 07:00 Intake Total 298.54 ml 255.346 ml Output Total 30 ml Balance 268.54 ml 255.346 ml IV Total 238.54 ml 255.346 ml Other 60 ml Output Urine Total 30 ml # Voids 20 ET-Tube: 7.5 ET Position: 24 Arturo Mckeon MD June 12, 2019 19:18
--- NOTE | 2019-06-12 20:25 | General Progress Note ---
Assessment/Plan Problem List: (1) Anemia ICD Codes: D64.9 - Anemia, unspecified SNOMED: 759044098 (2) Renal failure ICD Codes: N19 - Unspecified kidney failure SNOMED: 73640935 (3) Suspected COVID-19 virus infection ICD Codes: R68.89 - Other general symptoms and signs SNOMED: 439844247 (4) HTN (hypertension) ICD Codes: I10 - Essential (primary) hypertension SNOMED: 78580883 (5) CASSANDRA (acute kidney injury) ICD Codes: N17.9 - Acute kidney failure, unspecified SNOMED: 4954508, 21684885 (6) Anemia in chronic kidney disease (CKD) ICD Codes: N18.9 - Chronic kidney disease, unspecified; D63.1 - Anemia in chronic kidney disease SNOMED: 543169484 (7) Suspected COVID-19 virus infection ICD Codes: R68.89 - Other general symptoms and signs SNOMED: 449185727 Status: progressing Assessment/Plan: renal failure requiring diaylsis cxr worsening s/p pressor pna covid positve anemia s/p fluid overload worsening leukocytosis sepsis poor prognosis not improving abx per id Subjective ROS Limited/Unobtainable: Yes Allergies: Coded Allergies: No Known Allergies (Unverified , 05/28/19) Objective Last 24 Hour Vital Signs Date Time Temp Pulse Resp B/P (MAP) Pulse Ox O2 Delivery O2 Flow Rate FiO2 06/12/19 20:15 96 35 124/66 (85) 96 06/12/19 20:00 70 06/12/19 20:00 96 06/12/19 20:00 100.2 93 34 129/64 (85) 100 06/12/19 19:46 84 29 70 06/12/19 19:45 84 25 130/62 (84) 100 06/12/19 19:30 92 31 132/62 (85) 100 06/12/19 19:15 82 25 132/62 (85) 100 06/12/19 19:00 78 26 111/58 (75) 100 06/12/19 18:48 77/52 06/12/19 18:45 87 23 77/52 (60) 100 06/12/19 18:30 87 23 77/52 (60) 100 06/12/19 18:15 80 26 96/51 (66) 100 06/12/19 18:00 25 Mechanical Ventilator 100 06/12/19 18:00 28 72/51 Mechanical Ventilator 85 5 18:00 72/51 5 18:00 80 27 93/50 (64) 100 06/12/19 17:45 86 34 85/46 (59) 100 06/12/19 17:30 78 26 85 06/12/19 17:30 84 27 102/61 (75) 100 06/12/19 17:00 78 26 92/56 (68) 100 06/12/19 17:00 28 Mechanical Ventilator 100 06/12/19 17:00 29 92/56 Mechanical Ventilator 100 06/12/19 17:00 92/56 06/12/19 16:45 79 26 89/54 (66) 100 06/12/19 16:30 79 27 87/50 (62) 100 06/12/19 16:15 80 26 86/49 (61) 100 06/12/19 16:00 100 06/12/19 16:00 81 06/12/19 16:00 99.2 81 26 71/48 (56) 100 06/12/19 16:00 28 Mechanical Ventilator 100 06/12/19 16:00 29 71/48 Mechanical Ventilator 100 06/12/19 16:00 71/48 06/12/19 15:45 82 26 70/44 (53) 100 06/12/19 15:30 82 26 70/42 (51) 100 06/12/19 15:16 107 34 100 06/12/19 15:15 90 26 72/44 (53) 100 06/12/19 15:00 52 Mechanical Ventilator 100 06/12/19 15:00 49 70/52 Mechanical Ventilator 100 06/12/19 15:00 70/52 06/12/19 15:00 102 30 105/70 (82) 100 06/12/19 14:45 104 32 136/80 (98) 100 06/12/19 14:30 102 55 131/86 (101) 100 06/12/19 14:15 97 31 119/69 (86) 100 06/12/19 14:00 36 Mechanical Ventilator 100 06/12/19 14:00 52 72/54 Mechanical Ventilator 100 06/12/19 14:00 92/56 06/12/19 14:00 98 54 99/66 (77) 100 06/12/19 13:58 99.6 06/12/19 13:45 103 38 97/65 (76) 100 06/12/19 13:30 109 47 82/60 (67) 100 06/12/19 13:28 36 Mechanical Ventilator 100 06/12/19 13:27 72/54 06/12/19 13:20 111 33 100 06/12/19 13:15 112 46 83/62 (69) 100 06/12/19 13:00 72/54 06/12/19 13:00 111 41 82/60 (67) 100 06/12/19 12:30 104 32 97/60 (72) 100 06/12/19 12:15 97 29 95/78 (84) 100 06/12/19 12:00 100 06/12/19 12:00 103 34 79/50 (60) 100 06/12/19 12:00 72/52 06/12/19 12:00 99 06/12/19 12:00 99.8 97 27 90/64 (73) 100 06/12/19 11:45 107 47 90/63 (72) 100 06/12/19 11:30 107 30 74/55 (61) 100 06/12/19 11:15 106 40 80/59 (66) 100 06/12/19 11:00 80/52 06/12/19 11:00 107 50 80/59 (66) 100 06/12/19 10:48 112 33 100 06/12/19 10:30 109 36 85/46 (59) 100 06/12/19 10:15 116 44 80/59 (66) 100 06/12/19 10:00 60 72/56 Mechanical Ventilator 100 06/12/19 10:00 72/56 06/12/19 10:00 112 51 80/59 (66) 100 06/12/19 09:45 120 59 72/56 (61) 100 06/12/19 09:30 121 60 73/59 (64) 100 06/12/19 09:15 124 63 94/79 (84) 100 06/12/19 09:00 56 72/56 Mechanical Ventilator 100 06/12/19 09:00 72/56 06/12/19 09:00 126 65 84/59 (67) 100 06/12/19 08:45 126 64 110/70 (83) 100 06/12/19 08:38 124 35 100 06/12/19 08:30 124 62 100/61 (74) 100 06/12/19 08:15 119 56 87/54 (65) 100 06/12/19 08:00 99.6 116 40 79/55 (63) 100 06/12/19 08:00 100 06/12/19 08:00 115 06/12/19 07:43 82/53 06/12/19 07:21 111 29 100 06/12/19 07:00 110 30 111/70 (84) 100 06/12/19 07:00 28 91/69 Mechanical Ventilator 100 06/12/19 07:00 91/69 06/12/19 06:00 27 86/62 Mechanical Ventilator 100 06/12/19 06:00 86/62 06/12/19 06:00 118 86/62 (70) 06/12/19 05:55 108 27 81/50 (60) 100 06/12/19 05:50 109 24 85/48 (60) 100 06/12/19 05:45 105 45 74/48 (57) 100 06/12/19 05:40 108 20 87/54 (65) 100 06/12/19 05:35 107 32 88/58 (68) 100 06/12/19 05:30 106 33 77/51 (60) 100 06/12/19 05:25 107 26 83/54 (64) 100 06/12/19 05:22 108 27 83/51 (62) 100 06/12/19 05:20 109 28 66/50 (55) 100 06/12/19 05:15 117 10 81/61 (68) 100 06/12/19 05:10 88 26 100 06/12/19 05:10 117 48 118/66 (83) 97 06/12/19 05:05 110 24 77/51 (60) 100 06/12/19 05:00 24 110/71 Mechanical Ventilator 100 06/12/19 05:00 110/71 06/12/19 05:00 110 49 110/71 (84) 99 06/12/19 04:30 105 27 71/44 (53) 100 06/12/19 04:15 108 25 100/62 (75) 100 06/12/19 04:15 108 25 100/62 (75) 100 06/12/19 04:00 106 06/12/19 04:00 29 90/61 Mechanical Ventilator 100 06/12/19 04:00 90/61 06/12/19 04:00 98.6 106 29 90/61 (71) 98 06/12/19 04:00 106 29 90/61 (71) 98 06/12/19 03:45 99 23 91/66 (74) 96 06/12/19 03:44 26 151/80 Mechanical Ventilator 100 06/12/19 03:30 92 26 100 06/12/19 03:30 96 2 157/81 (106) 76 06/12/19 03:15 108 55 106/74 (85) 88 06/12/19 03:00 110/68 06/12/19 03:00 106 52 110/68 (82) 88 06/12/19 02:00 108 53 107/65 (79) 92 06/12/19 02:00 107/65 06/12/19 01:00 103 49 106/69 (81) 90 06/12/19 01:00 106/69 06/12/19 00:00 98.4 108 52 135/70 (91) 90 06/12/19 00:00 135/70 06/12/19 00:00 Non-Rebreather 15.0 06/11/19 23:18 140/79 06/11/19 23:00 102 48 90/54 (66) 91 06/11/19 23:00 90/56 06/11/19 22:00 97 43 147/75 (99) 90 06/11/19 22:00 147/75 06/11/19 21:00 94 43 144/66 (92) 88 06/11/19 21:00 144/66 Intake and Output 06/11/19 06/12/19 19:00 07:00 Intake Total 298.54 ml 255.346 ml Output Total 30 ml Balance 268.54 ml 255.346 ml IV Total 238.54 ml 255.346 ml Other 60 ml Output Urine Total 30 ml # Voids 20 Laboratory Tests 06/12/19 01:30: Arterial Blood pH 7.358, Arterial Blood Partial Pressure CO2 28.0L, Arterial Blood Partial Pressure O2 58.1L, Arterial Blood HCO3 15.4*L, Arterial Blood Oxygen Saturation 86.8*L, Arterial Blood Base Excess -8.8L, Kosta Test Positive 06/12/19 04:50: Arterial Blood pH 7.293L, Arterial Blood Partial Pressure CO2 41.1, Arterial Blood Partial Pressure O2 103.1H, Arterial Blood HCO3 19.5L, Arterial Blood Oxygen Saturation 96.4, Arterial Blood Base Excess -6.6L, Kosta Test Positive 06/12/19 07:50: White Blood Count 29.7*H, Red Blood Count 3.04L, Hemoglobin 9.4L, Hematocrit 27.4L, Mean Corpuscular Volume 90, Mean Corpuscular Hemoglobin 30.7, Mean Corpuscular Hemoglobin Concent 34.2, Red Cell Distribution Width 15.5H, Platelet Count 141L, Mean Platelet Volume 6.8, Neutrophils (%) (Auto) , Lymphocytes (%) (Auto) , Monocytes (%) (Auto) , Eosinophils (%) (Auto) , Basophils (%) (Auto) , Differential Total Cells Counted 100, Neutrophils % ( Manual) 92H, Lymphocytes % (Manual) 4L, Monocytes % (Manual) 4, Eosinophils % ( Manual) 0, Basophils % (Manual) 0, Metamyelocytes % 2H, Myelocytes % 2H, Band Neutrophils 0, Platelet Estimate DecreasedL, Platelet Morphology Normal, Anisocytosis 1+, Sodium Level 142, Potassium Level 3.5, Chloride Level 95L, Carbon Dioxide Level 23, Anion Gap 24H, Blood Urea Nitrogen 81H, Creatinine 10.6H, Estimat Glomerular Filtration Rate 4.9, Glucose Level 216H, Calcium Level 8.8, Phosphorus Level 7.8H, Total Bilirubin 0.3, Direct Bilirubin 0.1, Aspartate Amino Transf (AST/SGOT) 25, Alanine Aminotransferase (ALT/SGPT) 9L, Alkaline Phosphatase 125H, Total Protein 8.0, Albumin 1.9L, Triglycerides Level 142 Height (Feet): 6 Height (Inches): 1.00 Weight (Pounds): 189 Karishma Mulligan MD June 12, 2019 20:25
[2019-06-12] MEDS: Dyna-Hex 2% Top Sol 2oz TOPIC SCH (20:57)
[2019-06-12] MEDS: Depakote 125mg Sprinkles ORAL SCH (20:57)
[2019-06-13] VITALS (69 sets, daily range): BP systolic 59–177; BP diastolic 37–75
[2019-06-13] MEDS: Albuterol 90mcg Inhaler 8gm INH SCH ×6 (03:00→23:00)
[2019-06-13] MEDS: D5W IV SCH ×2 (03:12→07:23)
[2019-06-13] MEDS: NOREPINEPHRINE BITARTRATE IV SCH ×2 (03:12→07:23)
[2019-06-13] MEDS: propofoL 1,000mg/100ml 100 ML IV SCH (05:09)
[2019-06-13 06:35] LABS: HEMATOCRIT 24.5 % (42.0-52.0); HEMOGLOBIN 8.3 G/DL (14.2-18.0); MEAN CORPUSCULAR VOLUME 91 FL (80-99); PLATELET COUNT 106 K/UL (150-450); RED BLOOD COUNT 2.68 M/UL (4.70-6.10); RED CELL DISTRIBUTION WIDTH 14.8 % (11.6-14.8); WHITE BLOOD COUNT 19.9 K/UL (4.8-10.8)
[2019-06-13] MEDS: fentaNYL Citrate 2,500 MCG in NS 200 ML IV SCH ×2 (07:00→12:39)
[2019-06-13 07:04] LABS: ALANINE AMINOTRANSFERASE 26 U/L (12-78); ALBUMIN/GLOBULIN RATIO 0.4 (1.0-2.7); ALKALINE PHOSPHATASE 100 U/L (46-116); ANION GAP 19 mmol/L (5-15); ASPARTATE AMINO TRANSFERASE 77 U/L (15-37); BILIRUBIN,TOTAL 0.3 MG/DL (0.2-1.0); BLOOD UREA NITROGEN 81 mg/dL (7-18); CALCIUM 7.8 MG/DL (8.5-10.1); CARBON DIOXIDE 23 MMOL/L (21-32); CHLORIDE 92 MMOL/L (98-107); CREATININE 10.7 MG/DL (0.55-1.30); POTASSIUM 4.9 MMOL/L (3.5-5.1); SODIUM 134 MMOL/L (136-145)
[2019-06-13 07:17] LABS: CREATINE KINASE 490 U/L (26-308); GAMMA GLUTAMYL TRANSPEPTIDASE 10 U/L (5-85); LACTATE DEHYDROGENASE 508 U/L (81-234); PHOSPHORUS 7.3 MG/DL (2.5-4.9)
[2019-06-13] MEDS ORDERED: DOPamine 400mg/250ml 250 ML IV PRN (08:15)
[2019-06-13] MEDS: Wixela 100/50 Inhaler - 60 dose INH SCH ×2 (09:00→18:00)
[2019-06-13] MEDS: Depakote 125mg Sprinkles ORAL SCH ×2 (09:22→20:38)
--- NOTE | 2019-06-13 09:22 | Nephrology Progress Note ---
Assessment/Plan Problem List: (1) CASSANDRA (acute kidney injury) (2) Anemia in chronic kidney disease (CKD) (3) HTN (hypertension) (4) COVID-19 Assessment Acute renal failure most likely superimposed on chronic kidney disease Suspected COVID-19 virus infection Possible Pneumonia, lymphopenia, elevated AST Cardiomegaly, possible CHF COPD Hypertension Anemia, most likely related to chronic kidney disease Plan Positive for COVID 28 June 2: Patient now intubated on mechanical ventilation Discussed with SHANIQUE Yuen, today June 12 Patient received dialysis yesterday June 10 next hemodialysis June 12 Blood pressure better maintained Today's labs reviewed Continue per consultants Previously patient received dialysis last evening June 05, next dialysis June 07 which was incomplete due to patient's hypotension Will start on midodrine for blood pressure support. Meanwhile continue other pressors as needed Previously Patient is doing poorly, septic, white blood cells are rising, Hypotension somewhat improved We will keep n.p.o. , NG tube for medications, and change medication to IV as needed Patient remains full code Monitor vancomycin level Previously: Patient pulled out his femoral catheter yesterday June 03 which was reinserted by Dr. Mast Patient scheduled for dialysis again June 04, which again was not done due to dialysis nurse citing catheter malfunction Meanwhile continue management per ID, pulmonary , and psych. Meanwhile white blood cell count is rising. Patient blood pressure borderline low. Will check ABG Previously May 31 : I believe patient need dialysis treatment He however needs to competency assessment if can make decisions or not I will communicate with Dr. Mulligan Previously: Per pulmonary and ID advice Adjust blood pressure medication Renal diet Anemia work-up 2D echocardiogram refused Kidney ultrasound refused Jules catheter Urine studies Per orders Subjective ROS Limited/Unobtainable: Yes Objective Objective Last 24 Hour Vital Signs Date Time Temp Pulse Resp B/P (MAP) Pulse Ox O2 Delivery O2 Flow Rate FiO2 06/13/19 07:30 101.3 06/13/19 07:25 86 26 60 06/13/19 07:23 116/56 06/13/19 07:00 85 14 116/56 (76) 98 06/13/19 07:00 18 Mechanical Ventilator 50 06/13/19 07:00 18 Mechanical Ventilator 50 06/13/19 07:00 24 115/56 Mechanical Ventilator 50 06/13/19 07:00 115/56 06/13/19 06:30 85 115/56 (75) 5/3/20 06:00 84 110/54 (72) 06/13/19 06:00 18 Mechanical Ventilator 50 06/13/19 06:00 18 110/54 Mechanical Ventilator 50 06/13/19 06:00 110/54 06/13/19 05:30 85 96/50 (65) 06/13/19 05:12 86 26 60 06/13/19 05:09 26 Mechanical Ventilator 70 06/13/19 05:09 26 109/53 Mechanical Ventilator 50 06/13/19 05:09 103/53 06/13/19 05:00 102.3 84 103/53 (70) 06/13/19 04:30 84 1 109/54 (72) 97 06/13/19 04:00 22 Mechanical Ventilator 70 06/13/19 04:00 22 96/52 Mechanical Ventilator 70.0 06/13/19 04:00 96/52 06/13/19 04:00 86 21 84/47 (59) 89 06/13/19 04:00 79 06/13/19 04:00 50 06/13/19 03:33 84 26 60 06/13/19 03:30 82 26 116/54 (74) 97 06/13/19 03:12 114/62 06/13/19 03:00 22 Mechanical Ventilator 70 06/13/19 03:00 26 116/54 Mechanical Ventilator 70 06/13/19 03:00 83 26 114/52 (72) 97 06/13/19 02:30 82 26 117/51 (73) 97 06/13/19 02:20 26 Mechanical Ventilator 70 06/13/19 02:20 26 114/51 Mechanical Ventilator 70 06/13/19 02:20 114/51 06/13/19 02:00 100.6 82 26 114/51 (72) 97 06/13/19 01:30 83 27 113/51 (71) 97 06/13/19 01:16 81 26 70 06/13/19 01:00 83 26 109/52 (71) 98 06/13/19 01:00 83 26 109/52 (71) 98 06/13/19 01:00 26 Mechanical Ventilator 70 06/13/19 01:00 26 109/52 Mechanical Ventilator 70 06/13/19 01:00 109/52 06/13/19 00:30 82 27 115/51 (72) 97 06/13/19 00:00 101.7 81 26 111/51 (71) 97 20 00:00 26 Mechanical Ventilator 70 20 00:00 26 111/51 Mechanical Ventilator 70 20 00:00 111/51 20 23:45 85 22 110/52 (71) 96 20 23:30 82 27 113/51 (71) 98 20 23:21 83 26 70 06/12/19 23:15 82 26 122/58 (79) 98 20 23:00 26 Mechanical Ventilator 70 06/12/19 23:00 26 130/53 Mechanical Ventilator 70 06/12/19 23:00 130/53 06/12/19 23:00 76 26 130/53 (78) 99 20 22:51 108/51 06/12/19 22:45 88 26 116/54 (74) 96 06/12/19 22:30 82 26 108/51 (70) 98 20 22:15 82 27 110/50 (70) 98 20 22:00 28 Mechanical Ventilator 70 06/12/19 22:00 28 112/52 Mechanical Ventilator 70 06/12/19 22:00 112/52 06/12/19 22:00 82 28 112/52 (72) 98 06/12/19 21:45 83 29 96/47 (63) 98 06/12/19 21:45 29 Mechanical Ventilator 70 06/12/19 21:45 29 96/47 Mechanical Ventilator 70 06/12/19 21:45 96/47 06/12/19 21:30 84 29 84/46 (59) 97 20 21:30 29 Mechanical Ventilator 70 06/12/19 21:30 29 84/46 Mechanical Ventilator 70 06/12/19 21:30 84/46 06/12/19 21:15 88 30 100/46 (64) 98 06/12/19 21:15 29 Mechanical Ventilator 70 06/12/19 21:15 30 100/46 Mechanical Ventilator 70 20 21:15 100/46 20 21:10 86 27 70 06/12/19 21:00 85 31 87/48 (61) 98 5/2/20 21:00 31 Mechanical Ventilator 70 06/12/19 21:00 31 87/48 Mechanical Ventilator 70 06/12/19 21:00 87/48 06/12/19 20:45 92 34 92/52 (65) 98 06/12/19 20:45 34 Mechanical Ventilator 70 06/12/19 20:45 34 92/52 Mechanical Ventilator 70 06/12/19 20:45 92/52 06/12/19 20:35 38 Mechanical Ventilator 70 06/12/19 20:35 38 100/54 Mechanical Ventilator 70 06/12/19 20:35 100/54 06/12/19 20:30 99 39 100/54 (69) 97 06/12/19 20:15 96 35 124/66 (85) 96 06/12/19 20:00 70 06/12/19 20:00 96 06/12/19 20:00 100.2 93 34 129/64 (85) 100 06/12/19 19:46 84 29 70 06/12/19 19:45 84 25 130/62 (84) 100 06/12/19 19:30 92 31 132/62 (85) 100 06/12/19 19:15 82 25 132/62 (85) 100 06/12/19 19:00 78 26 111/58 (75) 100 06/12/19 18:48 77/52 06/12/19 18:45 87 23 77/52 (60) 100 06/12/19 18:30 87 23 77/52 (60) 100 06/12/19 18:15 80 26 96/51 (66) 100 06/12/19 18:00 25 Mechanical Ventilator 100 06/12/19 18:00 28 72/51 Mechanical Ventilator 85 06/12/19 18:00 72/51 06/12/19 18:00 80 27 93/50 (64) 100 06/12/19 17:45 86 34 85/46 (59) 100 06/12/19 17:30 78 26 85 06/12/19 17:30 84 27 102/61 (75) 100 06/12/19 17:00 78 26 92/56 (68) 100 06/12/19 17:00 28 Mechanical Ventilator 100 06/12/19 17:00 29 92/56 Mechanical Ventilator 100 06/12/19 17:00 92/56 06/12/19 16:45 79 26 89/54 (66) 100 06/12/19 16:30 79 27 87/50 (62) 100 06/12/19 16:15 80 26 86/49 (61) 100 06/12/19 16:00 100 06/12/19 16:00 81 06/12/19 16:00 99.2 81 26 71/48 (56) 100 06/12/19 16:00 28 Mechanical Ventilator 100 06/12/19 16:00 29 71/48 Mechanical Ventilator 100 06/12/19 16:00 71/48 06/12/19 15:45 82 26 70/44 (53) 100 06/12/19 15:30 82 26 70/42 (51) 100 06/12/19 15:16 107 34 100 06/12/19 15:15 90 26 72/44 (53) 100 06/12/19 15:00 52 Mechanical Ventilator 100 06/12/19 15:00 49 70/52 Mechanical Ventilator 100 06/12/19 15:00 70/52 06/12/19 15:00 102 30 105/70 (82) 100 06/12/19 14:45 104 32 136/80 (98) 100 06/12/19 14:30 102 55 131/86 (101) 100 06/12/19 14:15 97 31 119/69 (86) 100 06/12/19 14:00 36 Mechanical Ventilator 100 06/12/19 14:00 52 72/54 Mechanical Ventilator 100 06/12/19 14:00 92/56 06/12/19 14:00 98 54 99/66 (77) 100 06/12/19 13:58 99.6 06/12/19 13:45 103 38 97/65 (76) 100 06/12/19 13:30 109 47 82/60 (67) 100 06/12/19 13:28 36 Mechanical Ventilator 100 06/12/19 13:27 72/54 06/12/19 13:20 111 33 100 06/12/19 13:15 112 46 83/62 (69) 100 06/12/19 13:00 72/54 06/12/19 13:00 111 41 82/60 (67) 100 06/12/19 12:30 104 32 97/60 (72) 100 06/12/19 12:15 97 29 95/78 (84) 100 06/12/19 12:00 100 06/12/19 12:00 103 34 79/50 (60) 100 06/12/19 12:00 72/52 06/12/19 12:00 99 06/12/19 12:00 99.8 97 27 90/64 (73) 100 06/12/19 11:45 107 47 90/63 (72) 100 06/12/19 11:30 107 30 74/55 (61) 100 06/12/19 11:15 106 40 80/59 (66) 100 06/12/19 11:00 80/52 06/12/19 11:00 107 50 80/59 (66) 100 06/12/19 10:48 112 33 100 06/12/19 10:30 109 36 85/46 (59) 100 06/12/19 10:15 116 44 80/59 (66) 100 06/12/19 10:00 60 72/56 Mechanical Ventilator 100 06/12/19 10:00 72/56 06/12/19 10:00 112 51 80/59 (66) 100 06/12/19 09:45 120 59 72/56 (61) 100 06/12/19 09:30 121 60 73/59 (64) 100 Intake and Output 06/12/19 06/13/19 19:00 07:00 Intake Total 1333.893 ml 1027.709 ml Output Total 1020 ml 30 ml Balance 313.893 ml 997.709 ml IV Total 1333.893 ml 1027.709 ml Output Urine Total 20 ml 30 ml Hemodialysis UF 1000 ml Laboratory Tests 06/13/19 05:35: White Blood Count 19.9H, Red Blood Count 2.68L, Hemoglobin 8.3L, Hematocrit 24.5L, Mean Corpuscular Volume 91, Mean Corpuscular Hemoglobin 31.1H, Mean Corpuscular Hemoglobin Concent 34.0, Red Cell Distribution Width 14.8, Platelet Count 106L, Mean Platelet Volume 7.2, Neutrophils (%) (Auto) , Lymphocytes (%) ( Auto) , Monocytes (%) (Auto) , Eosinophils (%) (Auto) , Basophils (%) (Auto) , Neutrophils % (Manual) [Pending], Lymphocytes % (Manual) [Pending], Platelet Estimate [Pending], Platelet Morphology [Pending], Sodium Level 134L, Potassium Level 4.9, Chloride Level 92L, Carbon Dioxide Level 23, Anion Gap 19H, Blood Urea Nitrogen 81H, Creatinine 10.7H, Estimat Glomerular Filtration Rate 4.9, Glucose Level 379#H, Uric Acid 8.0H, Calcium Level 7.8L, Phosphorus Level 7.3H, Magnesium Level 2.3, Total Bilirubin 0.3, Gamma Glutamyl Transpeptidase 10, Aspartate Amino Transf (AST/SGOT) 77H, Alanine Aminotransferase (ALT/SGPT) 26, Alkaline Phosphatase 100, Lactate Dehydrogenase 508H, Total Creatine Kinase 490H , Troponin I 0.076H, C-Reactive Protein, Quantitative 28.9H, Pro-B-Type Natriuretic Peptide 60609R, Total Protein 7.4, Albumin 2.0L, Globulin 5.4, Albumin/Globulin Ratio 0.4L, Cortisol AM Sample [Pending] 06/13/19 07:30: Arterial Blood pH 7.291L, Arterial Blood Partial Pressure CO2 44.4, Arterial Blood Partial Pressure O2 87.3, Arterial Blood HCO3 20.9L, Arterial Blood Oxygen Saturation 95.1, Arterial Blood Base Excess -5.4L, Kosta Test Positive Height (Feet): 6 Height (Inches): 1.00 Weight (Pounds): 188 General Appearance: no apparent distress EENT: other - Intubated on ventilator Cardiovascular: tachycardia Respiratory/Chest: decreased breath sounds Abdomen: distended Objective No change Mic Cole MD June 13, 2019 09:21
[2019-06-13] MEDS: Midodrine 10mg tab NG SCH ×3 (09:23→18:01)
[2019-06-13] MEDS: Docusate 100mg/10ml Liq NG SCH ×3 (09:23→18:01)
[2019-06-13] MEDS: Renvela 800mg Pkt NG SCH ×3 (09:23→18:01)
[2019-06-13] MEDS: Pantoprazole Inj IVP SCH ×2 (09:23→20:37)
[2019-06-13] MEDS: Enoxaparin 30mg Inj SUBQ SCH (09:25)
--- NOTE | 2019-06-13 10:00 | Diagnostic Imaging Report ---
EXAM: XR Chest, 1 View CLINICAL HISTORY: F/U TECHNIQUE: Frontal view of the chest. COMPARISON: June 12, 2019. FINDINGS: Stable support lines and tubes. The distal tip of the enteric tube is in the proximal stomach with the first side port at the GE junction. There is little interval change in previously noted extensive bilateral infiltrates. No large pleural effusions. Cardiac silhouette is within normal limits. IMPRESSION: Stable bilateral multifocal pneumonia/ARDS. Recommend advancement of enteric tube by 5-10 cm. <MYCVCSECTION> Communications: 06/13/19 10:06 Verify Receipt with Nurse Verified receipt with CN Kin on 06/12 10:06 (-07:00)
[2019-06-13] MEDS: Vasopressin 100 UNITS in NS 95 ML IV SCH (11:00)
--- NOTE | 2019-06-13 11:44 | Infectious Diseases Prog Note ---
Assessment/Plan Assessment/Plan IMPRESSION: 1. COVID19 pneumonia Positive: 05/27, 05/31 , 06/05 2. MRSA carrier. 3. Chronic kidney disease , end-stage renal disease. 4. COPD. 5. Hypertension. 6. Anemia. 7. Hypothyroidism. 8. Hyperlipidemia. 9. Major depression. 10. Leukocytosis 11. Hypotension 12. Hepatitis C 13. Hyperuricemia 14. Diarrhea 15. septic shock RECOMMENDATIONS: started on Vancomycin & Zosyn sputum culture Poor prognosis Finished hydroxychloroquine. Will f/u COVID19 test Subjective ROS Limited/Unobtainable: Yes Constitutional: Reports: fever, other - T=104 Respiratory: Reports: other - intubated yesterday Cardiovascular: Reports: other - on maximal dose of pressor, HD catheter is clotted Gastrointestinal/Abdominal: Denies: diarrhea Allergies: Coded Allergies: No Known Allergies (Unverified , 05/28/19) Objective Vital Signs Last 24 Hour Vital Signs Date Time Temp Pulse Resp B/P (MAP) Pulse Ox O2 Delivery O2 Flow Rate FiO2 06/13/19 10:40 84 26 60 06/13/19 10:30 82 26 116/57 (76) 95 06/13/19 10:00 115 27 109/57 (74) 98 06/13/19 09:45 88 27 109/58 (75) 98 06/13/19 09:30 84 26 59/37 (44) 99 06/13/19 09:00 121/58 06/13/19 09:00 84 26 121/58 (79) 99 06/13/19 08:41 83 26 60 06/13/19 08:30 85 27 119/57 (77) 98 06/13/19 08:00 85 06/13/19 08:00 85 26 121/57 (78) 98 06/13/19 07:30 85 26 124/57 (79) 98 06/13/19 07:30 101.3 06/13/19 07:25 86 26 60 06/13/19 07:23 116/56 06/13/19 07:00 85 14 116/56 (76) 98 06/13/19 07:00 18 Mechanical Ventilator 50 06/13/19 07:00 18 Mechanical Ventilator 50 06/13/19 07:00 24 115/56 Mechanical Ventilator 50 06/13/19 07:00 115/56 06/13/19 06:30 85 115/56 (75) 06/13/19 06:00 84 110/54 (72) 06/13/19 06:00 18 Mechanical Ventilator 50 06/13/19 06:00 18 110/54 Mechanical Ventilator 50 06/13/19 06:00 110/54 06/13/19 05:30 85 96/50 (65) 06/13/19 05:12 86 26 60 06/13/19 05:09 26 Mechanical Ventilator 70 06/13/19 05:09 26 109/53 Mechanical Ventilator 50 06/13/19 05:09 103/53 06/13/19 05:00 102.3 84 103/53 (70) 06/13/19 04:30 84 1 109/54 (72) 97 06/13/19 04:00 22 Mechanical Ventilator 70 06/13/19 04:00 22 96/52 Mechanical Ventilator 70.0 06/13/19 04:00 96/52 06/13/19 04:00 86 21 84/47 (59) 89 06/13/19 04:00 79 06/13/19 04:00 50 06/13/19 03:33 84 26 60 06/13/19 03:30 82 26 116/54 (74) 97 06/13/19 03:12 114/62 06/13/19 03:00 22 Mechanical Ventilator 70 06/13/19 03:00 26 116/54 Mechanical Ventilator 70 06/13/19 03:00 83 26 114/52 (72) 97 06/13/19 02:30 82 26 117/51 (73) 97 06/13/19 02:20 26 Mechanical Ventilator 70 06/13/19 02:20 26 114/51 Mechanical Ventilator 70 06/13/19 02:20 114/51 06/13/19 02:00 100.6 82 26 114/51 (72) 97 06/13/19 01:30 83 27 113/51 (71) 97 06/13/19 01:16 81 26 70 06/13/19 01:00 83 26 109/52 (71) 98 06/13/19 01:00 83 26 109/52 (71) 98 06/13/19 01:00 26 Mechanical Ventilator 70 06/13/19 01:00 26 109/52 Mechanical Ventilator 70 06/13/19 01:00 109/52 5/3/20 00:30 82 27 115/51 (72) 97 20 00:00 101.7 81 26 111/51 (71) 97 20 00:00 26 Mechanical Ventilator 70 20 00:00 26 111/51 Mechanical Ventilator 70 20 00:00 111/51 20 23:45 85 22 110/52 (71) 96 20 23:30 82 27 113/51 (71) 98 20 23:21 83 26 70 20 23:15 82 26 122/58 (79) 98 06/12/19 23:00 26 Mechanical Ventilator 70 06/12/19 23:00 26 130/53 Mechanical Ventilator 70 06/12/19 23:00 130/53 06/12/19 23:00 76 26 130/53 (78) 99 20 22:51 108/51 06/12/19 22:45 88 26 116/54 (74) 96 20 22:30 82 26 108/51 (70) 98 20 22:15 82 27 110/50 (70) 98 06/12/19 22:00 28 Mechanical Ventilator 70 06/12/19 22:00 28 112/52 Mechanical Ventilator 70 06/12/19 22:00 112/52 06/12/19 22:00 82 28 112/52 (72) 98 20 21:45 83 29 96/47 (63) 98 20 21:45 29 Mechanical Ventilator 70 06/12/19 21:45 29 96/47 Mechanical Ventilator 70 06/12/19 21:45 96/47 06/12/19 21:30 84 29 84/46 (59) 97 06/12/19 21:30 29 Mechanical Ventilator 70 06/12/19 21:30 29 84/46 Mechanical Ventilator 70 20 21:30 84/46 20 21:15 88 30 100/46 (64) 98 20 21:15 29 Mechanical Ventilator 70 20 21:15 30 100/46 Mechanical Ventilator 70 20 21:15 100/46 520 21:10 86 27 70 20 21:00 85 31 87/48 (61) 98 5/20 21:00 31 Mechanical Ventilator 70 06/12/19 21:00 31 87/48 Mechanical Ventilator 70 06/12/19 21:00 87/48 20 20:45 92 34 92/52 (65) 98 20 20:45 34 Mechanical Ventilator 70 06/12/19 20:45 34 92/52 Mechanical Ventilator 70 20 20:45 92/52 06/12/19 20:35 38 Mechanical Ventilator 70 06/12/19 20:35 38 100/54 Mechanical Ventilator 70 20 20:35 100/54 20 20:30 99 39 100/54 (69) 97 06/12/19 20:15 96 35 124/66 (85) 96 06/12/19 20:00 70 06/12/19 20:00 96 06/12/19 20:00 100.2 93 34 129/64 (85) 100 06/12/19 19:46 84 29 70 06/12/19 19:45 84 25 130/62 (84) 100 06/12/19 19:30 92 31 132/62 (85) 100 06/12/19 19:15 82 25 132/62 (85) 100 06/12/19 19:00 78 26 111/58 (75) 100 06/12/19 18:48 77/52 06/12/19 18:45 87 23 77/52 (60) 100 06/12/19 18:30 87 23 77/52 (60) 100 06/12/19 18:15 80 26 96/51 (66) 100 06/12/19 18:00 25 Mechanical Ventilator 100 06/12/19 18:00 28 72/51 Mechanical Ventilator 85 20 18:00 72/51 20 18:00 80 27 93/50 (64) 100 06/12/19 17:45 86 34 85/46 (59) 100 06/12/19 17:30 78 26 85 06/12/19 17:30 84 27 102/61 (75) 100 06/12/19 17:00 78 26 92/56 (68) 100 06/12/19 17:00 28 Mechanical Ventilator 100 06/12/19 17:00 29 92/56 Mechanical Ventilator 100 06/12/19 17:00 92/56 06/12/19 16:45 79 26 89/54 (66) 100 06/12/19 16:30 79 27 87/50 (62) 100 06/12/19 16:15 80 26 86/49 (61) 100 06/12/19 16:00 100 06/12/19 16:00 81 06/12/19 16:00 99.2 81 26 71/48 (56) 100 06/12/19 16:00 28 Mechanical Ventilator 100 06/12/19 16:00 29 71/48 Mechanical Ventilator 100 06/12/19 16:00 71/48 06/12/19 15:45 82 26 70/44 (53) 100 06/12/19 15:30 82 26 70/42 (51) 100 06/12/19 15:16 107 34 100 06/12/19 15:15 90 26 72/44 (53) 100 06/12/19 15:00 52 Mechanical Ventilator 100 06/12/19 15:00 49 70/52 Mechanical Ventilator 100 06/12/19 15:00 70/52 06/12/19 15:00 102 30 105/70 (82) 100 06/12/19 14:45 104 32 136/80 (98) 100 06/12/19 14:30 102 55 131/86 (101) 100 06/12/19 14:15 97 31 119/69 (86) 100 06/12/19 14:00 36 Mechanical Ventilator 100 06/12/19 14:00 52 72/54 Mechanical Ventilator 100 06/12/19 14:00 92/56 06/12/19 14:00 98 54 99/66 (77) 100 06/12/19 13:58 99.6 06/12/19 13:45 103 38 97/65 (76) 100 06/12/19 13:30 109 47 82/60 (67) 100 06/12/19 13:28 36 Mechanical Ventilator 100 06/12/19 13:27 72/54 06/12/19 13:20 111 33 100 06/12/19 13:15 112 46 83/62 (69) 100 06/12/19 13:00 72/54 06/12/19 13:00 111 41 82/60 (67) 100 06/12/19 12:30 104 32 97/60 (72) 100 5/2/20 12:15 97 29 95/78 (84) 100 06/12/19 12:00 100 06/12/19 12:00 103 34 79/50 (60) 100 06/12/19 12:00 72/52 06/12/19 12:00 99 06/12/19 12:00 99.8 97 27 90/64 (73) 100 06/12/19 11:45 107 47 90/63 (72) 100 Height (Feet): 6 Height (Inches): 1.00 Weight (Pounds): 188 HEENT: other - orally intubated Respiratory/Chest: other - on ventiltor Cardiovascular: normal rate Abdomen: soft, non tender Extremities: no edema Neurologic/Psychiatric: unresponsiveness Laboratory Tests Test 06/13/19 05:35 06/13/19 07:30 White Blood Count 19.9 K/UL (4.8-10.8) H Red Blood Count 2.68 M/UL (4.70-6.10) L Hemoglobin 8.3 G/DL (14.2-18.0) L Hematocrit 24.5 % (42.0-52.0) L Mean Corpuscular Volume 91 FL (80-99) Mean Corpuscular Hemoglobin 31.1 PG (27.0-31.0) H Mean Corpuscular Hemoglobin Concent 34.0 G/DL (32.0-36.0) Red Cell Distribution Width 14.8 % (11.6-14.8) Platelet Count 106 K/UL (150-450) L Mean Platelet Volume 7.2 FL (6.5-10.1) Neutrophils (%) (Auto) % (45.0-75.0) Lymphocytes (%) (Auto) % (20.0-45.0) Monocytes (%) (Auto) % (1.0-10.0) Eosinophils (%) (Auto) % (0.0-3.0) Basophils (%) (Auto) % (0.0-2.0) Neutrophils % (Manual) Pending Lymphocytes % (Manual) Pending Platelet Estimate Pending Platelet Morphology Pending Sodium Level 134 MMOL/L (136-145) L Potassium Level 4.9 MMOL/L (3.5-5.1) Chloride Level 92 MMOL/L (98-107) L Carbon Dioxide Level 23 MMOL/L (21-32) Anion Gap 19 mmol/L (5-15) H Blood Urea Nitrogen 81 mg/dL (7-18) H Creatinine 10.7 MG/DL (0.55-1.30) H Estimat Glomerular Filtration Rate 4.9 mL/min (>60) Glucose Level 379 MG/DL (74-106) #H Uric Acid 8.0 MG/DL (2.6-7.2) H Calcium Level 7.8 MG/DL (8.5-10.1) L Phosphorus Level 7.3 MG/DL (2.5-4.9) H Magnesium Level 2.3 MG/DL (1.8-2.4) Total Bilirubin 0.3 MG/DL (0.2-1.0) Gamma Glutamyl Transpeptidase 10 U/L (5-85) Aspartate Amino Transf (AST/SGOT) 77 U/L (15-37) H Alanine Aminotransferase (ALT/SGPT) 26 U/L (12-78) Alkaline Phosphatase 100 U/L (46-116) Lactate Dehydrogenase 508 U/L (81-234) H Total Creatine Kinase 490 U/L (26-308) H Troponin I 0.076 ng/mL (0.000-0.056) C-Reactive Protein, Quantitative 28.9 mg/dL (0.00-0.90) H Pro-B-Type Natriuretic Peptide 60591 pg/mL (0-125) H Total Protein 7.4 G/DL (6.4-8.2) Albumin 2.0 G/DL (3.4-5.0) L Globulin 5.4 g/dL Albumin/Globulin Ratio 0.4 (1.0-2.7) L Cortisol AM Sample Pending Arterial Blood pH 7.291 (7.350-7.450) Arterial Blood Partial Pressure CO2 44.4 mmHg (35.0-45.0) Arterial Blood Partial Pressure O2 87.3 mmHg (75.0-100.0) Arterial Blood HCO3 20.9 mmol/L (22.0-26.0) L Arterial Blood Oxygen Saturation 95.1 % (95-100) Arterial Blood Base Excess -5.4 (-2-2) L Kosta Test Positive Current Medications Medications (Trade) Dose Ordered Sig/Anthony Route PRN Reason Start Time Stop Time Status Last Admin Dose Admin Acetaminophen (Tylenol) 650 mg Q4H PRN NG Temp >100.5 06/13/19 11:00 07/13/19 10:59 Albuterol Sulfate (Proventil MDI) 2 puff Q4HRT INH 06/06/19 23:00 08/30/19 18:59 06/11/19 09:15 Allopurinol (allopurinoL) 300 mg DAILY NG 06/08/19 09:30 07/08/19 09:29 06/13/19 09:23 Chlorhexidine Gluconate (Michelle-Hex 2%) 1 applic DAILY@2000 TOPIC 06/07/19 20:00 09/05/19 19:59 06/12/19 20:57 Divalproex Sodium (Depakote Sprinkles) 250 mg EVERY 12 HOURS ORAL 06/12/19 21:00 07/12/19 08:59 06/13/19 09:22 Docusate Sodium (Colace) 100 mg THREE TIMES A DAY NG 06/07/19 13:00 07/07/19 12:59 06/13/19 09:23 Dopamine HCl/ Dextrose 250 ml @ 0 mls/hr Q24H PRN IV For hypotension 06/13/19 08:15 09/11/19 08:14 Enoxaparin Sodium (Lovenox) 30 mg DAILY SUBQ 06/07/19 09:00 08/27/19 08:59 06/13/19 09:25 Epoetin Aftab (Epoetin Aftab(ESRD on dialysis)) 10,000 unit FRI-FRI-FRI SUBQ 06/07/19 21:00 08/31/19 20:59 06/11/19 20:45 Fentanyl Citrate 2500 mcg/Sodium Chloride 250 ml @ 0 mls/hr Q24H IV 06/13/19 07:00 06/20/19 06:59 Hydralazine HCl (Apresoline) 10 mg Q4H PRN IV Blood pressure over 160 systol 06/07/19 10:15 09/05/19 10:14 Midodrine (Pro-Amatine) 10 mg THREE TIMES A DAY NG 06/09/19 13:00 09/07/19 12:59 06/13/19 09:23 Norepinephrine Bitartrate 16 mg/ Dextrose 566 ml @ 0 mls/hr Q24H IV 06/13/19 09:45 07/13/19 09:44 Pantoprazole (Protonix) 40 mg Q12HR IVP 06/07/19 21:00 07/07/19 08:59 06/13/19 09:23 Piperacillin Sod/ Tazobactam Sod 2.25 gm/Dextrose 55 ml @ 110 mls/hr Q8HR IVPB 06/13/19 14:00 06/18/19 13:59 UNV Propofol 100 ml @ 0 mls/hr Q24H IV 06/12/19 03:30 06/14/19 03:29 06/13/19 05:09 Salmeterol Xinafoate/ Fluticasone (Advair 100/50 Diskus) 1 puffs BID INH 06/07/19 09:00 08/27/19 08:59 06/11/19 09:14 Sevelamer Carbonate (Renvela) 1,600 mg THREE TIMES A DAY NG 06/07/19 13:00 09/05/19 12:59 06/13/19 09:23 Vancomycin HCl (Vanco rx to dose) 1 ea DAILY PRN MISC Per rx protocol 06/13/19 11:45 07/13/19 11:44 UNV Vasopressin 100 units/Sodium Chloride 100 ml @ 0 mls/hr Q24H IV 06/12/19 11:00 07/12/19 10:59 06/12/19 11:38 Ted Leyva MD June 13, 2019 11:44
[2019-06-13] MEDS: Acetaminophen 650mg/20.3ml NG PRN (11:46)
[2019-06-13] MEDS: Norepinephrine Bitartrate 16 MG in D5W 500ml 550 ML IV SCH ×2 (11:47→22:43)
[2019-06-13] MEDS ORDERED: Vancomycin 1.5gm/NS Premix q24h IVPB SCH (13:00)
[2019-06-13] MEDS ORDERED: Tubing IV Blood Pump IV ONE (14:08)
[2019-06-13] MEDS ORDERED: D5W 275ml ONE (14:08)
[2019-06-13] MEDS ORDERED: NS 275ml ONE (14:08)
[2019-06-13] MEDS: Piperacillin/Tazobactam 2.25 GM in D5W 55 ML IVPB SCH ×2 (14:25→21:41)
[2019-06-13] MEDS ORDERED: Tubing IV Secondary IV ONE (16:04)
--- NOTE | 2019-06-13 17:01 | Diagnostic Imaging Report ---
EXAM: XR Abdomen, 2 Views CLINICAL HISTORY: MALPOSITION TECHNIQUE: Frontal view of the abdomen/pelvis with upright view of the abdomen. COMPARISON: Abdominal radiograph on 06/11/2019 FINDINGS: Hardware: Enteric tube terminates in the region of the proximal stomach. Abdomen: Nonobstructive bowel gas pattern. No free air. Bones: Degenerative changes of the spine. Soft tissues: Normal. Lower chest: Right basilar opacity and probable small pleural effusion. Other: Catheter projecting from the left groin harshly visualized. IMPRESSION: Enteric tube terminates in the region of the proximal stomach.
--- NOTE | 2019-06-13 18:53 | Pulmonolgy Critical Care Note ---
Critical Care - Asmt/Plan Assessment/Plan: Pulmonary CCM Progress Note HPI: Patient is a 68 year old man, senior care resident, admitted c/o shortness of breath, cough, noted to have Covid 19 Pneumonia. S/p intubation, remains on pressors, ABG/CXR noted ID following On HD per Renal Past Medical History: COPD, CKD, Hypertension, Anemia Hypotension requiring pressors, in ICU Persistently elevated WCC Allergies: No Known Allergies Improving Pulmonary Status on HD Physical Exam Vital Signs Noted Sedated on ventilator WDWN, no distress HEENT: NCAT,moist mm Chest: Occasional rhonchi Heart: HS1, HS2, RRR Abdomen: SNTND, no masses Extremities: Well perfused, mild edema [employer]: No focal signs, no seizures, seadted Impression: COVID-19 virus infection Pneumonia Respiratory failure on ventilator Volume overload - on HD Cardiomegaly Lymphopenia Elevated AST COPD Chronic Kidney Disease, worsening renal function - HD Hypertension Worsening anemia Plan: Antibiotics per ID HD Pressors PRN ACVC 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 Monitor cultures/viral studies PPX Hemodialysis per Renal Psychiatry following [facility] - [facility] requested for when available Laboratory Tests Noted: CXR: Hypoventilatory exam, interstitial changes, cardiomegaly, worsening infiltrates Subjective ROS Limited/Unobtainable: No Constitutional: Denies: fever Respiratory: Reports: dry cough, shortness of breath Gastrointestinal/Abdominal: Reports: diarrhea, other - colace was stopped Psychiatric: Reports: other - refuses labs Allergies: Coded Allergies: No Known Allergies (Unverified , 05/28/19) All Systems: reviewed and negative except above Labs noted Critical Care - Objective Last 24 Hour Vital Signs Date Time Temp Pulse Resp B/P (MAP) Pulse Ox O2 Delivery O2 Flow Rate FiO2 06/13/19 17:15 79 27 102/66 (78) 99 06/13/19 17:00 80 25 100/60 (73) 98 06/13/19 17:00 100/60 06/13/19 17:00 26 Mechanical Ventilator 80 06/13/19 16:45 85 26 94/54 (67) 97 06/13/19 16:41 87 26 80 06/13/19 16:30 90 26 90/51 (64) 86 06/13/19 16:15 73 26 103/55 (71) 97 06/13/19 16:00 74 5/3/20 16:00 80 06/13/19 16:00 71 27 106/59 (75) 97 06/13/19 16:00 103/55 06/13/19 16:00 26 Mechanical Ventilator 80 06/13/19 15:45 74 26 114/60 (78) 97 06/13/19 15:30 72 26 121/65 (83) 98 06/13/19 15:15 73 27 122/66 (84) 99 06/13/19 15:15 121/65 06/13/19 15:00 96.9 78 26 110/61 (77) 97 06/13/19 15:00 122/66 06/13/19 15:00 26 Mechanical Ventilator 80 06/13/19 14:54 84 31 60 06/13/19 14:45 77 26 107/58 (74) 97 06/13/19 14:30 76 21 106/61 (76) 96 06/13/19 14:15 79 21 110/67 (81) 96 06/13/19 14:00 79 26 111/61 (78) 96 06/13/19 14:00 110/67 06/13/19 14:00 26 Mechanical Ventilator 80 06/13/19 13:45 67 26 100/72 (81) 93 06/13/19 13:30 79 25 135/69 (91) 93 06/13/19 13:15 69 26 144/68 (93) 96 06/13/19 13:15 135/69 06/13/19 13:00 73 24 153/69 (97) 95 06/13/19 13:00 144/68 06/13/19 13:00 26 Mechanical Ventilator 80 06/13/19 12:56 71 19 116/56 (76) 94 06/13/19 12:45 80 26 177/67 (103) 95 06/13/19 12:39 26 Mechanical Ventilator 100 06/13/19 12:30 75 26 136/61 (86) 95 06/13/19 12:30 26 Mechanical Ventilator 80 06/13/19 12:30 26 139/61 Mechanical Ventilator 80 06/13/19 12:30 75 26 60 06/13/19 12:00 79 06/13/19 12:00 75 26 108/58 (75) 92 06/13/19 12:00 139/61 06/13/19 12:00 26 Mechanical Ventilator 70 06/13/19 12:00 26 Mechanical Ventilator 70 06/13/19 12:00 26 139/61 Mechanical Ventilator 70 06/13/19 12:00 139/61 06/13/19 12:00 99.2 108/58 (75) 06/13/19 12:00 80 06/13/19 11:47 125/60 06/13/19 11:46 99.5 06/13/19 11:30 77 26 128/61 (83) 94 06/13/19 11:00 26 Mechanical Ventilator 70 06/13/19 11:00 26 Mechanical Ventilator 70 06/13/19 11:00 26 128/61 Mechanical Ventilator 70 06/13/19 11:00 140/62 06/13/19 11:00 80 25 140/62 (88) 96 06/13/19 10:40 84 26 60 06/13/19 10:30 82 26 116/57 (76) 95 06/13/19 10:00 26 Mechanical Ventilator 50 06/13/19 10:00 26 Mechanical Ventilator 50 06/13/19 10:00 26 140/62 Mechanical Ventilator 50 06/13/19 10:00 109/50 06/13/19 10:00 115 27 109/57 (74) 98 06/13/19 09:45 88 27 109/58 (75) 98 06/13/19 09:30 84 26 59/37 (44) 99 06/13/19 09:00 121/58 06/13/19 09:00 26 Mechanical Ventilator 50 06/13/19 09:00 26 Mechanical Ventilator 50 06/13/19 09:00 26 124/57 Mechanical Ventilator 50 06/13/19 09:00 119/57 06/13/19 09:00 84 26 121/58 (79) 99 06/13/19 08:41 83 26 60 06/13/19 08:30 85 27 119/57 (77) 98 06/13/19 08:00 104.0 06/13/19 08:00 85 06/13/19 08:00 26 Mechanical Ventilator 50 06/13/19 08:00 26 Mechanical Ventilator 50 06/13/19 08:00 26 116/56 Mechanical Ventilator 50 06/13/19 08:00 124/57 06/13/19 08:00 50 06/13/19 08:00 85 26 121/57 (78) 98 06/13/19 07:30 85 26 124/57 (79) 98 06/13/19 07:30 101.3 06/13/19 07:25 86 26 60 06/13/19 07:23 116/56 06/13/19 07:00 85 14 116/56 (76) 98 06/13/19 07:00 18 Mechanical Ventilator 50 06/13/19 07:00 18 Mechanical Ventilator 50 06/13/19 07:00 24 115/56 Mechanical Ventilator 50 06/13/19 07:00 115/56 06/13/19 06:30 85 115/56 (75) 06/13/19 06:00 84 110/54 (72) 06/13/19 06:00 18 Mechanical Ventilator 50 06/13/19 06:00 18 110/54 Mechanical Ventilator 50 06/13/19 06:00 110/54 06/13/19 05:30 85 96/50 (65) 06/13/19 05:12 86 26 60 06/13/19 05:09 26 Mechanical Ventilator 70 06/13/19 05:09 26 109/53 Mechanical Ventilator 50 06/13/19 05:09 103/53 06/13/19 05:00 102.3 84 103/53 (70) 06/13/19 04:30 84 1 109/54 (72) 97 06/13/19 04:00 22 Mechanical Ventilator 70 06/13/19 04:00 22 96/52 Mechanical Ventilator 70.0 06/13/19 04:00 96/52 06/13/19 04:00 86 21 84/47 (59) 89 06/13/19 04:00 79 06/13/19 04:00 50 06/13/19 03:33 84 26 60 06/13/19 03:30 82 26 116/54 (74) 97 06/13/19 03:12 114/62 06/13/19 03:00 22 Mechanical Ventilator 70 06/13/19 03:00 26 116/54 Mechanical Ventilator 70 06/13/19 03:00 83 26 114/52 (72) 97 06/13/19 02:30 82 26 117/51 (73) 97 06/13/19 02:20 26 Mechanical Ventilator 70 06/13/19 02:20 26 114/51 Mechanical Ventilator 70 06/13/19 02:20 114/51 06/13/19 02:00 100.6 82 26 114/51 (72) 97 06/13/19 01:30 83 27 113/51 (71) 97 06/13/19 01:16 81 26 70 06/13/19 01:00 83 26 109/52 (71) 98 06/13/19 01:00 83 26 109/52 (71) 98 06/13/19 01:00 26 Mechanical Ventilator 70 06/13/19 01:00 26 109/52 Mechanical Ventilator 70 06/13/19 01:00 109/52 06/13/19 00:30 82 27 115/51 (72) 97 06/13/19 00:00 101.7 81 26 111/51 (71) 97 06/13/19 00:00 26 Mechanical Ventilator 70 06/13/19 00:00 26 111/51 Mechanical Ventilator 70 06/13/19 00:00 111/51 06/12/19 23:45 85 22 110/52 (71) 96 06/12/19 23:30 82 27 113/51 (71) 98 06/12/19 23:21 83 26 70 06/12/19 23:15 82 26 122/58 (79) 98 06/12/19 23:00 26 Mechanical Ventilator 70 06/12/19 23:00 26 130/53 Mechanical Ventilator 70 06/12/19 23:00 130/53 06/12/19 23:00 76 26 130/53 (78) 99 06/12/19 22:51 108/51 06/12/19 22:45 88 26 116/54 (74) 96 06/12/19 22:30 82 26 108/51 (70) 98 06/12/19 22:15 82 27 110/50 (70) 98 06/12/19 22:00 28 Mechanical Ventilator 70 06/12/19 22:00 28 112/52 Mechanical Ventilator 70 06/12/19 22:00 112/52 06/12/19 22:00 82 28 112/52 (72) 98 06/12/19 21:45 83 29 96/47 (63) 98 06/12/19 21:45 29 Mechanical Ventilator 70 06/12/19 21:45 29 96/47 Mechanical Ventilator 70 06/12/19 21:45 96/47 5/2/20 21:30 84 29 84/46 (59) 97 06/12/19 21:30 29 Mechanical Ventilator 70 06/12/19 21:30 29 84/46 Mechanical Ventilator 70 20 21:30 84/46 20 21:15 88 30 100/46 (64) 98 20 21:15 29 Mechanical Ventilator 70 20 21:15 30 100/46 Mechanical Ventilator 70 20 21:15 100/46 06/12/19 21:10 86 27 70 06/12/19 21:00 85 31 87/48 (61) 98 06/12/19 21:00 31 Mechanical Ventilator 70 06/12/19 21:00 31 87/48 Mechanical Ventilator 70 06/12/19 21:00 87/48 06/12/19 20:45 92 34 92/52 (65) 98 06/12/19 20:45 34 Mechanical Ventilator 70 06/12/19 20:45 34 92/52 Mechanical Ventilator 70 06/12/19 20:45 92/52 06/12/19 20:35 38 Mechanical Ventilator 70 06/12/19 20:35 38 100/54 Mechanical Ventilator 70 06/12/19 20:35 100/54 06/12/19 20:30 99 39 100/54 (69) 97 06/12/19 20:15 96 35 124/66 (85) 96 06/12/19 20:00 70 06/12/19 20:00 96 06/12/19 20:00 100.2 93 34 129/64 (85) 100 06/12/19 19:46 84 29 70 06/12/19 19:45 84 25 130/62 (84) 100 20 19:30 92 31 132/62 (85) 100 06/12/19 19:15 82 25 132/62 (85) 100 06/12/19 19:00 78 26 111/58 (75) 100 Critical Care - Subjective ROS Limited/Unobtainable: No FI02: 80 Vent Support Breath Rate: 26 Vent Support Mode: AC Vent Tidal Volume: 500 Sputum Amount: Moderate PEEP: 8.0 PIP: 27 Tube Feeding Amount: 10 I&O: Intake and Output 06/12/19 06/13/19 19:00 07:00 Intake Total 1333.893 ml 1027.709 ml Output Total 1020 ml 30 ml Balance 313.893 ml 997.709 ml IV Total 1333.893 ml 1027.709 ml Output Urine Total 20 ml 30 ml Hemodialysis UF 1000 ml ET-Tube: 7.5 ET Position: 24 Arturo Mckeon MD June 13, 2019 18:53
[2019-06-13] MEDS: Dyna-Hex 2% Top Sol 2oz TOPIC SCH (20:37)
--- NOTE | 2019-06-13 21:09 | Hematology/Onc Progress Note ---
Assessment/Plan Assessment/Plan Assessment and Recs: # Anemia of chronic disease, likely related ot underlying kidney disease --> hgb trend 9-->8-->7.3-->7.9-->6.8->9.5-->10->8.3 --> transfuse as needed, hgb goal >7 --> no evidence of hemolysis --> peripheral smear has been reviewed --> epogen started tid ==>> transfuse w 2 units 06/08 # Leukocytosis likely related to suspected COVID-19 virus infection --> on abx and plaquenil --> trend smear as needed --> initially 4-->11-->14.5-->21-->26-->21->24--.28-->19 --> pulm is aware --> on abx cefepime/vanc->zosyn/vanc --> pressors as needed # Lymphopenia --> likely related to covid19 # Possible Pneumonia # Cardiomegaly # Transaminitis with Elevated AST # COPD # Chronic Kidney Disease --> per renal hd # Hypertension # Dvt ppx lovenox Appreciate consultation and dw Rn Subjective Constitutional: Denies: no symptoms, chills, fever, malaise, weakness, other HEENT: Denies: no symptoms, eye pain, blurred vision, tearing, double vision, ear pain, ear discharge, nose pain, nose congestion, throat pain, throat swelling, mouth pain, mouth swelling, other Cardiovascular: Denies: no symptoms, chest pain, edema, irregular heart rate, lightheadedness, palpitations, syncope, other Respiratory: Denies: no symptoms, cough, shortness of breath, SOB with excertion, SOB at rest, sputum, wheezing, other Genitourinary: Denies: no symptoms, burning, discharge, frequency, flank pain, hematuria, incontinence, pain, urgency, other Endocrine: Denies: no symptoms, excessive sweating, flushing, intolerance to cold, intolerance to heat, increased hunger, increased thirst, increased urine, unexplained weight gain, unexplained weight loss, other Allergies: Coded Allergies: No Known Allergies (Unverified , 05/28/19) Subjective 06/01 extremely agitated, not allowing labs draws, no night sweats, cbc ordered 06/02 confused, restraints, on abx and plaquenil, hgb 7.9, nrb 15 L 06/03 is with nonrebreather, but not compliant, remains confused 06/05 no bleeding, labs noted, no major bleeding, otherwise comfortable 06/06 labs reviewed, no bleeding, meds noted, no night sweats, on levo and nonrebreather 06/07 labs noted, no bleeding, meds reviewed, no bleeding, wbc higher 06/08 to get 2 units prbc, no night sweats, meds reviewed 06/09 is on cefepime and vanc, labs noted, dw Rn, no bleeding 06/10 no major changes, labs reviewed, wbc 28k, on abx, cefepime 06/12 remains in icu, labs noted, no night sweats or bleeding Objective Objective Current Medications Medications (Trade) Dose Ordered Sig/Anthony Route PRN Reason Start Time Stop Time Status Last Admin Dose Admin Acetaminophen (Tylenol) 650 mg Q4H PRN NG Temp >100.5 06/13/19 11:00 07/13/19 10:59 06/13/19 11:46 Albuterol Sulfate (Proventil MDI) 2 puff Q4HRT INH 06/06/19 23:00 08/30/19 18:59 06/11/19 09:15 Allopurinol (allopurinoL) 300 mg DAILY NG 06/08/19 09:30 07/08/19 09:29 06/13/19 09:23 Chlorhexidine Gluconate (Michelle-Hex 2%) 1 applic DAILY@2000 TOPIC 06/07/19 20:00 09/05/19 19:59 06/13/19 20:37 Divalproex Sodium (Depakote Sprinkles) 250 mg EVERY 12 HOURS ORAL 06/12/19 21:00 07/12/19 08:59 06/13/19 20:38 Docusate Sodium (Colace) 100 mg THREE TIMES A DAY NG 06/07/19 13:00 07/07/19 12:59 06/13/19 18:01 Dopamine HCl/ Dextrose 250 ml @ 0 mls/hr Q24H PRN IV For hypotension 06/13/19 08:15 09/11/19 08:14 Enoxaparin Sodium (Lovenox) 30 mg DAILY SUBQ 06/07/19 09:00 08/27/19 08:59 06/13/19 09:25 Epoetin Aftab (Epoetin Aftab(ESRD on dialysis)) 10,000 unit SUBQ 06/07/19 21:00 08/31/19 20:59 06/11/19 20:45 Fentanyl Citrate 2500 mcg/Sodium Chloride 250 ml @ 0 mls/hr Q24H IV 06/13/19 07:00 06/20/19 06:59 06/13/19 12:39 Hydralazine HCl (Apresoline) 10 mg Q4H PRN IV Blood pressure over 160 systol 06/07/19 10:15 09/05/19 10:14 Midodrine (Pro-Amatine) 10 mg THREE TIMES A DAY NG 06/09/19 13:00 09/07/19 12:59 06/13/19 18:01 Norepinephrine Bitartrate 16 mg/ Dextrose 566 ml @ 0 mls/hr Q24H IV 06/13/19 09:45 07/13/19 09:44 06/13/19 11:47 Pantoprazole (Protonix) 40 mg Q12HR IVP 06/07/19 21:00 07/07/19 08:59 06/13/19 20:37 Piperacillin Sod/ Tazobactam Sod 2.25 gm/Dextrose 55 ml @ 110 mls/hr Q8HR IVPB 06/13/19 14:00 06/18/19 13:59 06/13/19 14:25 Propofol 100 ml @ 0 mls/hr Q24H IV 06/12/19 03:30 06/14/19 03:29 06/13/19 05:09 Salmeterol Xinafoate/ Fluticasone (Advair 100/50 Diskus) 1 puffs BID INH 06/07/19 09:00 08/27/19 08:59 06/11/19 09:14 Sevelamer Carbonate (Renvela) 1,600 mg THREE TIMES A DAY NG 06/07/19 13:00 09/05/19 12:59 06/13/19 18:01 Vancomycin HCl (Vanco rx to dose) 1 ea DAILY PRN MISC Per rx protocol 06/13/19 11:45 07/13/19 11:44 Vancomycin/Sodium Chloride 275 ml @ 137.5 mls/ hr ONCE IVPB 06/13/19 13:00 06/18/19 14:00 06/13/19 12:42 Vasopressin 100 units/Sodium Chloride 100 ml @ 0 mls/hr Q24H IV 06/12/19 11:00 07/12/19 10:59 06/12/19 11:38 Last 24 Hour Vital Signs Date Time Temp Pulse Resp B/P (MAP) Pulse Ox O2 Delivery O2 Flow Rate FiO2 06/13/19 20:15 64 26 140/75 (96) 100 06/13/19 20:00 97.8 64 28 136/71 (92) 99 06/13/19 20:00 80 06/13/19 20:00 62 06/13/19 19:54 66 29 80 06/13/19 19:45 67 30 132/70 (90) 99 06/13/19 19:30 68 28 130/65 (86) 100 06/13/19 19:15 71 26 116/62 (80) 98 06/13/19 19:00 116/62 06/13/19 19:00 26 Mechanical Ventilator 80 06/13/19 19:00 94 24 95/57 (70) 99 06/13/19 18:45 80 26 106/58 (74) 94 06/13/19 18:30 75 27 117/67 (84) 98 06/13/19 18:15 75 26 120/65 (83) 98 06/13/19 18:00 77 26 120/68 (85) 99 06/13/19 18:00 120/65 06/13/19 18:00 26 Mechanical Ventilator 80 06/13/19 17:45 77 29 122/72 (89) 99 06/13/19 17:30 79 26 116/68 (84) 99 06/13/19 17:15 79 27 102/66 (78) 99 06/13/19 17:00 80 25 100/60 (73) 98 06/13/19 17:00 100/60 06/13/19 17:00 26 Mechanical Ventilator 80 06/13/19 16:45 85 26 94/54 (67) 97 06/13/19 16:41 87 26 80 06/13/19 16:30 90 26 90/51 (64) 86 06/13/19 16:15 73 26 103/55 (71) 97 06/13/19 16:00 74 06/13/19 16:00 80 06/13/19 16:00 71 27 106/59 (75) 97 06/13/19 16:00 103/55 06/13/19 16:00 26 Mechanical Ventilator 80 06/13/19 15:45 74 26 114/60 (78) 97 06/13/19 15:30 72 26 121/65 (83) 98 06/13/19 15:15 73 27 122/66 (84) 99 06/13/19 15:15 121/65 06/13/19 15:00 96.9 78 26 110/61 (77) 97 06/13/19 15:00 122/66 06/13/19 15:00 26 Mechanical Ventilator 80 06/13/19 14:54 84 31 60 06/13/19 14:45 77 26 107/58 (74) 97 06/13/19 14:30 76 21 106/61 (76) 96 06/13/19 14:15 79 21 110/67 (81) 96 06/13/19 14:00 79 26 111/61 (78) 96 06/13/19 14:00 110/67 06/13/19 14:00 26 Mechanical Ventilator 80 06/13/19 13:45 67 26 100/72 (81) 93 06/13/19 13:30 79 25 135/69 (91) 93 06/13/19 13:15 69 26 144/68 (93) 96 06/13/19 13:15 135/69 06/13/19 13:00 73 24 153/69 (97) 95 06/13/19 13:00 144/68 06/13/19 13:00 26 Mechanical Ventilator 80 06/13/19 12:56 71 19 116/56 (76) 94 06/13/19 12:45 80 26 177/67 (103) 95 06/13/19 12:39 26 Mechanical Ventilator 100 06/13/19 12:30 75 26 136/61 (86) 95 06/13/19 12:30 26 Mechanical Ventilator 80 06/13/19 12:30 26 139/61 Mechanical Ventilator 80 06/13/19 12:30 75 26 60 06/13/19 12:00 79 06/13/19 12:00 75 26 108/58 (75) 92 06/13/19 12:00 139/61 06/13/19 12:00 26 Mechanical Ventilator 70 06/13/19 12:00 26 Mechanical Ventilator 70 06/13/19 12:00 26 139/61 Mechanical Ventilator 70 06/13/19 12:00 139/61 06/13/19 12:00 99.2 108/58 (75) 06/13/19 12:00 80 06/13/19 11:47 125/60 06/13/19 11:46 99.5 06/13/19 11:30 77 26 128/61 (83) 94 06/13/19 11:00 26 Mechanical Ventilator 70 06/13/19 11:00 26 Mechanical Ventilator 70 06/13/19 11:00 26 128/61 Mechanical Ventilator 70 06/13/19 11:00 140/62 06/13/19 11:00 80 25 140/62 (88) 96 06/13/19 10:40 84 26 60 06/13/19 10:30 82 26 116/57 (76) 95 06/13/19 10:00 26 Mechanical Ventilator 50 06/13/19 10:00 26 Mechanical Ventilator 50 06/13/19 10:00 26 140/62 Mechanical Ventilator 50 06/13/19 10:00 109/50 06/13/19 10:00 115 27 109/57 (74) 98 06/13/19 09:45 88 27 109/58 (75) 98 06/13/19 09:30 84 26 59/37 (44) 99 06/13/19 09:00 121/58 06/13/19 09:00 26 Mechanical Ventilator 50 06/13/19 09:00 26 Mechanical Ventilator 50 06/13/19 09:00 26 124/57 Mechanical Ventilator 50 06/13/19 09:00 119/57 06/13/19 09:00 84 26 121/58 (79) 99 06/13/19 08:41 83 26 60 06/13/19 08:30 85 27 119/57 (77) 98 06/13/19 08:00 104.0 06/13/19 08:00 85 06/13/19 08:00 26 Mechanical Ventilator 50 06/13/19 08:00 26 Mechanical Ventilator 50 06/13/19 08:00 26 116/56 Mechanical Ventilator 50 06/13/19 08:00 124/57 06/13/19 08:00 50 06/13/19 08:00 85 26 121/57 (78) 98 06/13/19 07:30 85 26 124/57 (79) 98 06/13/19 07:30 101.3 06/13/19 07:25 86 26 60 06/13/19 07:23 116/56 06/13/19 07:00 85 14 116/56 (76) 98 06/13/19 07:00 18 Mechanical Ventilator 50 06/13/19 07:00 18 Mechanical Ventilator 50 06/13/19 07:00 24 115/56 Mechanical Ventilator 50 06/13/19 07:00 115/56 06/13/19 06:30 85 115/56 (75) 06/13/19 06:00 84 110/54 (72) 06/13/19 06:00 18 Mechanical Ventilator 50 06/13/19 06:00 18 110/54 Mechanical Ventilator 50 06/13/19 06:00 110/54 06/13/19 05:30 85 96/50 (65) 06/13/19 05:12 86 26 60 06/13/19 05:09 26 Mechanical Ventilator 70 06/13/19 05:09 26 109/53 Mechanical Ventilator 50 06/13/19 05:09 103/53 06/13/19 05:00 102.3 84 103/53 (70) 06/13/19 04:30 84 1 109/54 (72) 97 06/13/19 04:00 22 Mechanical Ventilator 70 06/13/19 04:00 22 96/52 Mechanical Ventilator 70.0 06/13/19 04:00 96/52 06/13/19 04:00 86 21 84/47 (59) 89 06/13/19 04:00 79 06/13/19 04:00 50 06/13/19 03:33 84 26 60 06/13/19 03:30 82 26 116/54 (74) 97 06/13/19 03:12 114/62 06/13/19 03:00 22 Mechanical Ventilator 70 06/13/19 03:00 26 116/54 Mechanical Ventilator 70 06/13/19 03:00 83 26 114/52 (72) 97 06/13/19 02:30 82 26 117/51 (73) 97 06/13/19 02:20 26 Mechanical Ventilator 70 06/13/19 02:20 26 114/51 Mechanical Ventilator 70 06/13/19 02:20 114/51 06/13/19 02:00 100.6 82 26 114/51 (72) 97 06/13/19 01:30 83 27 113/51 (71) 97 06/13/19 01:16 81 26 70 06/13/19 01:00 83 26 109/52 (71) 98 06/13/19 01:00 83 26 109/52 (71) 98 06/13/19 01:00 26 Mechanical Ventilator 70 06/13/19 01:00 26 109/52 Mechanical Ventilator 70 06/13/19 01:00 109/52 06/13/19 00:30 82 27 115/51 (72) 97 06/13/19 00:00 101.7 81 26 111/51 (71) 97 06/13/19 00:00 26 Mechanical Ventilator 70 06/13/19 00:00 26 111/51 Mechanical Ventilator 70 06/13/19 00:00 111/51 06/12/19 23:45 85 22 110/52 (71) 96 06/12/19 23:30 82 27 113/51 (71) 98 06/12/19 23:21 83 26 70 06/12/19 23:15 82 26 122/58 (79) 98 06/12/19 23:00 26 Mechanical Ventilator 70 06/12/19 23:00 26 130/53 Mechanical Ventilator 70 06/12/19 23:00 130/53 06/12/19 23:00 76 26 130/53 (78) 99 06/12/19 22:51 108/51 06/12/19 22:45 88 26 116/54 (74) 96 06/12/19 22:30 82 26 108/51 (70) 98 06/12/19 22:15 82 27 110/50 (70) 98 06/12/19 22:00 28 Mechanical Ventilator 70 06/12/19 22:00 28 112/52 Mechanical Ventilator 70 06/12/19 22:00 112/52 06/12/19 22:00 82 28 112/52 (72) 98 06/12/19 21:45 83 29 96/47 (63) 98 06/12/19 21:45 29 Mechanical Ventilator 70 06/12/19 21:45 29 96/47 Mechanical Ventilator 70 06/12/19 21:45 96/47 5/2/20 21:30 84 29 84/46 (59) 97 5/2/20 21:30 29 Mechanical Ventilator 70 5/20 21:30 29 84/46 Mechanical Ventilator 70 5/20 21:30 84/46 5/2/20 21:15 88 30 100/46 (64) 98 5/2/20 21:15 29 Mechanical Ventilator 70 06/11/20 21:15 30 100/46 Mechanical Ventilator 70 06/11/20 21:15 100/46 5//20 21:10 86 27 70 5/2/20 21:00 85 31 87/48 (61) 98 5//20 21:00 31 Mechanical Ventilator 70 06/11/20 21:00 31 87/48 Mechanical Ventilator 70 06/11/20 21:00 87/48 520 20:45 92 34 92/52 (65) 98 //20 20:45 34 Mechanical Ventilator 70 06/11/20 20:45 34 92/52 Mechanical Ventilator 70 20 20:45 92/52 20 20:35 38 Mechanical Ventilator 70 20 20:35 38 100/54 Mechanical Ventilator 70 06/11/20 20:35 100/54 5//20 20:30 99 39 100/54 (69) 97 06/11/20 20:15 96 35 124/66 (85) 96 5/2/20 20:00 70 5/2/20 20:00 96 5//20 20:00 100.2 93 34 129/64 (85) 100 5/20 19:46 84 29 70 5/2/20 19:45 84 25 130/62 (84) 100 5/2/20 19:30 92 31 132/62 (85) 100 5/2/20 19:15 82 25 132/62 (85) 100 5/2/20 19:00 78 26 111/58 (75) 100 5/2/20 18:48 77/52 5/2/20 18:45 87 23 77/52 (60) 100 5/2/20 18:30 87 23 77/52 (60) 100 5/2/20 18:15 80 26 96/51 (66) 100 5/2/20 18:00 25 Mechanical Ventilator 100 5/2/20 18:00 28 72/51 Mechanical Ventilator 85 06/12/19 18:00 72/51 06/12/19 18:00 80 27 93/50 (64) 100 06/12/19 17:45 86 34 85/46 (59) 100 06/12/19 17:30 78 26 85 06/12/19 17:30 84 27 102/61 (75) 100 06/12/19 17:00 78 26 92/56 (68) 100 06/12/19 17:00 28 Mechanical Ventilator 100 06/12/19 17:00 29 92/56 Mechanical Ventilator 100 06/12/19 17:00 92/56 06/12/19 16:45 79 26 89/54 (66) 100 06/12/19 16:30 79 27 87/50 (62) 100 06/12/19 16:15 80 26 86/49 (61) 100 06/12/19 16:00 100 06/12/19 16:00 81 06/12/19 16:00 99.2 81 26 71/48 (56) 100 06/12/19 16:00 28 Mechanical Ventilator 100 06/12/19 16:00 29 71/48 Mechanical Ventilator 100 06/12/19 16:00 71/48 06/12/19 15:45 82 26 70/44 (53) 100 06/12/19 15:30 82 26 70/42 (51) 100 06/12/19 15:16 107 34 100 06/12/19 15:15 90 26 72/44 (53) 100 06/12/19 15:00 52 Mechanical Ventilator 100 06/12/19 15:00 49 70/52 Mechanical Ventilator 100 06/12/19 15:00 70/52 06/12/19 15:00 102 30 105/70 (82) 100 06/12/19 14:45 104 32 136/80 (98) 100 06/12/19 14:30 102 55 131/86 (101) 100 06/12/19 14:15 97 31 119/69 (86) 100 06/12/19 14:00 36 Mechanical Ventilator 100 06/12/19 14:00 52 72/54 Mechanical Ventilator 100 06/12/19 14:00 92/56 06/12/19 14:00 98 54 99/66 (77) 100 06/12/19 13:58 99.6 06/12/19 13:45 103 38 97/65 (76) 100 06/12/19 13:30 109 47 82/60 (67) 100 06/12/19 13:28 36 Mechanical Ventilator 100 06/12/19 13:27 72/54 06/12/19 13:20 111 33 100 06/12/19 13:15 112 46 83/62 (69) 100 06/12/19 13:00 72/54 06/12/19 13:00 111 41 82/60 (67) 100 06/12/19 12:30 104 32 97/60 (72) 100 06/12/19 12:15 97 29 95/78 (84) 100 06/12/19 12:00 100 06/12/19 12:00 103 34 79/50 (60) 100 06/12/19 12:00 72/52 06/12/19 12:00 99 06/12/19 12:00 99.8 97 27 90/64 (73) 100 06/12/19 11:45 107 47 90/63 (72) 100 06/12/19 11:30 107 30 74/55 (61) 100 06/12/19 11:15 106 40 80/59 (66) 100 06/12/19 11:00 80/52 06/12/19 11:00 107 50 80/59 (66) 100 06/12/19 10:48 112 33 100 06/12/19 10:30 109 36 85/46 (59) 100 06/12/19 10:15 116 44 80/59 (66) 100 06/12/19 10:00 60 72/56 Mechanical Ventilator 100 06/12/19 10:00 72/56 06/12/19 10:00 112 51 80/59 (66) 100 06/12/19 09:45 120 59 72/56 (61) 100 06/12/19 09:30 121 60 73/59 (64) 100 06/12/19 09:15 124 63 94/79 (84) 100 06/12/19 09:00 56 72/56 Mechanical Ventilator 100 06/12/19 09:00 72/56 06/12/19 09:00 126 65 84/59 (67) 100 06/12/19 08:45 126 64 110/70 (83) 100 06/12/19 08:38 124 35 100 06/12/19 08:30 124 62 100/61 (74) 100 06/12/19 08:15 119 56 87/54 (65) 100 06/12/19 08:00 99.6 116 40 79/55 (63) 100 06/12/19 08:00 100 06/12/19 08:00 115 06/12/19 07:43 82/53 06/12/19 07:21 111 29 100 06/12/19 07:00 110 30 111/70 (84) 100 06/12/19 07:00 28 91/69 Mechanical Ventilator 100 06/12/19 07:00 91/69 06/12/19 06:00 27 86/62 Mechanical Ventilator 100 06/12/19 06:00 86/62 06/12/19 06:00 118 86/62 (70) 06/12/19 05:55 108 27 81/50 (60) 100 06/12/19 05:50 109 24 85/48 (60) 100 06/12/19 05:45 105 45 74/48 (57) 100 06/12/19 05:40 108 20 87/54 (65) 100 06/12/19 05:35 107 32 88/58 (68) 100 06/12/19 05:30 106 33 77/51 (60) 100 06/12/19 05:25 107 26 83/54 (64) 100 06/12/19 05:22 108 27 83/51 (62) 100 06/12/19 05:20 109 28 66/50 (55) 100 06/12/19 05:15 117 10 81/61 (68) 100 06/12/19 05:10 88 26 100 06/12/19 05:10 117 48 118/66 (83) 97 06/12/19 05:05 110 24 77/51 (60) 100 06/12/19 05:00 24 110/71 Mechanical Ventilator 100 06/12/19 05:00 110/71 06/12/19 05:00 110 49 110/71 (84) 99 06/12/19 04:30 105 27 71/44 (53) 100 06/12/19 04:15 108 25 100/62 (75) 100 06/12/19 04:15 108 25 100/62 (75) 100 06/12/19 04:00 106 06/12/19 04:00 29 90/61 Mechanical Ventilator 100 06/12/19 04:00 90/61 06/12/19 04:00 98.6 106 29 90/61 (71) 98 06/12/19 04:00 106 29 90/61 (71) 98 06/12/19 03:45 99 23 91/66 (74) 96 06/12/19 03:44 26 151/80 Mechanical Ventilator 100 06/12/19 03:30 92 26 100 06/12/19 03:30 96 2 157/81 (106) 76 06/12/19 03:15 108 55 106/74 (85) 88 06/12/19 03:00 110/68 06/12/19 03:00 106 52 110/68 (82) 88 06/12/19 02:00 108 53 107/65 (79) 92 06/12/19 02:00 107/65 06/12/19 01:00 103 49 106/69 (81) 90 06/12/19 01:00 106/69 06/12/19 00:00 98.4 108 52 135/70 (91) 90 06/12/19 00:00 135/70 06/12/19 00:00 Non-Rebreather 15.0 06/11/19 23:18 140/79 06/11/19 23:00 102 48 90/54 (66) 91 06/11/19 23:00 90/56 06/11/19 22:00 97 43 147/75 (99) 90 06/11/19 22:00 147/75 Intake and Output 06/12/19 06/13/19 19:00 07:00 Intake Total 1333.893 ml 1027.709 ml Output Total 1020 ml 30 ml Balance 313.893 ml 997.709 ml IV Total 1333.893 ml 1027.709 ml Output Urine Total 20 ml 30 ml Hemodialysis UF 1000 ml Labs Test 06/11/19 03:34 06/11/19 19:14 06/12/19 01:30 06/12/19 04:50 White Blood Count 28.2 K/UL (4.8-10.8) Red Blood Count 3.25 M/UL (4.70-6.10) Hemoglobin 10.0 G/DL (14.2-18.0) Hematocrit 28.5 % (42.0-52.0) Mean Corpuscular Volume 88 FL (80-99) Mean Corpuscular Hemoglobin 30.7 PG (27.0-31.0) Mean Corpuscular Hemoglobin Concent 35.0 G/DL (32.0-36.0) Red Cell Distribution Width 13.6 % (11.6-14.8) Platelet Count 172 K/UL (150-450) Mean Platelet Volume 7.4 FL (6.5-10.1) Neutrophils (%) (Auto) % (45.0-75.0) Lymphocytes (%) (Auto) % (20.0-45.0) Monocytes (%) (Auto) % (1.0-10.0) Eosinophils (%) (Auto) % (0.0-3.0) Basophils (%) (Auto) % (0.0-2.0) Differential Total Cells Counted 100 Neutrophils % (Manual) 84 % (45-75) Lymphocytes % (Manual) 3 % (20-45) Monocytes % (Manual) 2 % (1-10) Eosinophils % (Manual) 1 % (0-3) Basophils % (Manual) 0 % (0-2) Metamyelocytes % 4 % (0-0) Myelocytes % 4 % (0-0) Band Neutrophils 2 % (0-8) Platelet Estimate Adequate Platelet Morphology Normal Sodium Level 143 MMOL/L (136-145) Potassium Level 4.0 MMOL/L (3.5-5.1) Chloride Level 98 MMOL/L (98-107) Carbon Dioxide Level 22 MMOL/L (21-32) Anion Gap 23 mmol/L (5-15) Blood Urea Nitrogen 86 mg/dL (7-18) Creatinine 10.8 MG/DL (0.55-1.30) Estimat Glomerular Filtration Rate 4.8 mL/min (>60) Glucose Level 178 MG/DL (74-106) Uric Acid 8.5 MG/DL (2.6-7.2) Calcium Level 9.2 MG/DL (8.5-10.1) Phosphorus Level 7.1 MG/DL (2.5-4.9) Magnesium Level 2.6 MG/DL (1.8-2.4) Total Bilirubin 0.3 MG/DL (0.2-1.0) Gamma Glutamyl Transpeptidase 6 U/L (5-85) Aspartate Amino Transf (AST/SGOT) 30 U/L (15-37) Alanine Aminotransferase (ALT/SGPT) 14 U/L (12-78) Alkaline Phosphatase 113 U/L (46-116) C-Reactive Protein, Quantitative 9.6 mg/dL (0.00-0.90) Pro-B-Type Natriuretic Peptide 7775 pg/mL (0-125) Total Protein 8.6 G/DL (6.4-8.2) Albumin 2.1 G/DL (3.4-5.0) Globulin 6.5 g/dL Albumin/Globulin Ratio 0.3 (1.0-2.7) Arterial Blood pH 7.521 (7.350-7.450) 7.358 (7.350-7.450) 7.293 (7.350-7.450) Arterial Blood Partial Pressure CO2 18.8 mmHg (35.0-45.0) 28.0 mmHg (35.0-45.0) 41.1 mmHg (35.0-45.0) Arterial Blood Partial Pressure O2 82.6 mmHg (75.0-100.0) 58.1 mmHg (75.0-100.0) 103.1 mmHg (75.0-100.0) Arterial Blood HCO3 15.0 mmol/L (22.0-26.0) 15.4 mmol/L (22.0-26.0) 19.5 mmol/L (22.0-26.0) Arterial Blood Oxygen Saturation 97.1 % (95-100) 86.8 % (95-100) 96.4 % (95-100) Arterial Blood Base Excess -6.0 (-2-2) -8.8 (-2-2) -6.6 (-2-2) Kosta Test Positive Positive Positive Test 06/12/19 07:50 06/13/19 05:35 06/13/19 07:30 White Blood Count 29.7 K/UL (4.8-10.8) 19.9 K/UL (4.8-10.8) Red Blood Count 3.04 M/UL (4.70-6.10) 2.68 M/UL (4.70-6.10) Hemoglobin 9.4 G/DL (14.2-18.0) 8.3 G/DL (14.2-18.0) Hematocrit 27.4 % (42.0-52.0) 24.5 % (42.0-52.0) Mean Corpuscular Volume 90 FL (80-99) 91 FL (80-99) Mean Corpuscular Hemoglobin 30.7 PG (27.0-31.0) 31.1 PG (27.0-31.0) Mean Corpuscular Hemoglobin Concent 34.2 G/DL (32.0-36.0) 34.0 G/DL (32.0-36.0) Red Cell Distribution Width 15.5 % (11.6-14.8) 14.8 % (11.6-14.8) Platelet Count 141 K/UL (150-450) 106 K/UL (150-450) Mean Platelet Volume 6.8 FL (6.5-10.1) 7.2 FL (6.5-10.1) Neutrophils (%) (Auto) % (45.0-75.0) % (45.0-75.0) Lymphocytes (%) (Auto) % (20.0-45.0) % (20.0-45.0) Monocytes (%) (Auto) % (1.0-10.0) % (1.0-10.0) Eosinophils (%) (Auto) % (0.0-3.0) % (0.0-3.0) Basophils (%) (Auto) % (0.0-2.0) % (0.0-2.0) Differential Total Cells Counted 100 100 Neutrophils % (Manual) 92 % (45-75) 84 % (45-75) Lymphocytes % (Manual) 4 % (20-45) 9 % (20-45) Monocytes % (Manual) 4 % (1-10) 6 % (1-10) Eosinophils % (Manual) 0 % (0-3) 0 % (0-3) Basophils % (Manual) 0 % (0-2) 1 % (0-2) Metamyelocytes % 2 % (0-0) Myelocytes % 2 % (0-0) Band Neutrophils 0 % (0-8) 0 % (0-8) Platelet Estimate Decreased Decreased Platelet Morphology Normal Normal Anisocytosis 1+ Sodium Level 142 MMOL/L (136-145) 134 MMOL/L (136-145) Potassium Level 3.5 MMOL/L (3.5-5.1) 4.9 MMOL/L (3.5-5.1) Chloride Level 95 MMOL/L (98-107) 92 MMOL/L (98-107) Carbon Dioxide Level 23 MMOL/L (21-32) 23 MMOL/L (21-32) Anion Gap 24 mmol/L (5-15) 19 mmol/L (5-15) Blood Urea Nitrogen 81 mg/dL (7-18) 81 mg/dL (7-18) Creatinine 10.6 MG/DL (0.55-1.30) 10.7 MG/DL (0.55-1.30) Estimat Glomerular Filtration Rate 4.9 mL/min (>60) 4.9 mL/min (>60) Glucose Level 216 MG/DL (74-106) 379 MG/DL (74-106) Calcium Level 8.8 MG/DL (8.5-10.1) 7.8 MG/DL (8.5-10.1) Phosphorus Level 7.8 MG/DL (2.5-4.9) 7.3 MG/DL (2.5-4.9) Total Bilirubin 0.3 MG/DL (0.2-1.0) 0.3 MG/DL (0.2-1.0) Direct Bilirubin 0.1 MG/DL (0.0-0.3) Aspartate Amino Transf (AST/SGOT) 25 U/L (15-37) 77 U/L (15-37) Alanine Aminotransferase (ALT/SGPT) 9 U/L (12-78) 26 U/L (12-78) Alkaline Phosphatase 125 U/L (46-116) 100 U/L (46-116) Total Protein 8.0 G/DL (6.4-8.2) 7.4 G/DL (6.4-8.2) Albumin 1.9 G/DL (3.4-5.0) 2.0 G/DL (3.4-5.0) Triglycerides Level 142 MG/DL (30-150) Hypochromasia 1+ Uric Acid 8.0 MG/DL (2.6-7.2) Magnesium Level 2.3 MG/DL (1.8-2.4) Gamma Glutamyl Transpeptidase 10 U/L (5-85) Lactate Dehydrogenase 508 U/L (81-234) Total Creatine Kinase 490 U/L (26-308) Troponin I 0.076 ng/mL (0.000-0.056) C-Reactive Protein, Quantitative 28.9 mg/dL (0.00-0.90) Pro-B-Type Natriuretic Peptide 31434 pg/mL (0-125) Globulin 5.4 g/dL Albumin/Globulin Ratio 0.4 (1.0-2.7) Arterial Blood pH 7.291 (7.350-7.450) Arterial Blood Partial Pressure CO2 44.4 mmHg (35.0-45.0) Arterial Blood Partial Pressure O2 87.3 mmHg (75.0-100.0) Arterial Blood HCO3 20.9 mmol/L (22.0-26.0) Arterial Blood Oxygen Saturation 95.1 % (95-100) Arterial Blood Base Excess -5.4 (-2-2) Kosta Test Positive Height (Feet): 6 Height (Inches): 1.00 Weight (Pounds): 188 Objective Sp02 EP Interpretation: reviewed, normal General: no apparent distress, alert, GCS 15, non-toxic Head: normocephalic, atraumatic Heent: bilateral eye normal inspection, bilateral eye PERRL Respiratory: normal breath sounds, no respiratory distress,intubated+++ Cardiovascular: regular rate, rhythm, no edema Gastrointestinal: normal inspection, soft, non-distended Rectal: deferred Musculoskeletal: normal range of motion, non-tender Neurologic: alert, motor strength/tone normal, sensory intact, responsive, speech normal Psychiatric: mood/affect normal, no suicidal/homicidal ideation Skin: Decubitus/Ulcer - See RN skin exam. : jamaal+ Greg Cabral MD June 13, 2019 21:09
--- NOTE | 2019-06-13 21:44 | Surgery Progress Note ---
Surgery Progress Note Subjective Procedure Performed right subclavian central venous catheter insertion Additional Comments Ill-appearing. Attempted dialysis lines not functional plan for change discussed with dialysis nurse and nursing staff Labs noted. On vent support. Objective Last 24 Hour Vital Signs Date Time Temp Pulse Resp B/P (MAP) Pulse Ox O2 Delivery O2 Flow Rate FiO2 06/13/19 21:15 67 26 117/62 (80) 98 20 21:00 66 26 113/64 (80) 98 06/13/19 20:45 66 26 129/66 (87) 99 06/13/19 20:45 117/62 06/13/19 20:30 65 26 133/69 (90) 98 06/13/19 20:15 64 26 140/75 (96) 100 06/13/19 20:00 97.8 64 28 136/71 (92) 99 06/13/19 20:00 26 Mechanical Ventilator 80 06/13/19 20:00 80 06/13/19 20:00 62 06/13/19 19:54 66 29 80 06/13/19 19:45 67 30 132/70 (90) 99 06/13/19 19:30 68 28 130/65 (86) 100 06/13/19 19:15 71 26 116/62 (80) 98 06/13/19 19:00 116/62 06/13/19 19:00 26 Mechanical Ventilator 80 06/13/19 19:00 94 24 95/57 (70) 99 06/13/19 18:45 80 26 106/58 (74) 94 06/13/19 18:30 75 27 117/67 (84) 98 06/13/19 18:15 75 26 120/65 (83) 98 20 18:00 77 26 120/68 (85) 99 06/13/19 18:00 120/65 06/13/19 18:00 26 Mechanical Ventilator 80 06/13/19 17:45 77 29 122/72 (89) 99 06/13/19 17:30 79 26 116/68 (84) 99 20 17:15 79 27 102/66 (78) 99 06/13/19 17:00 80 25 100/60 (73) 98 06/13/19 17:00 100/60 06/13/19 17:00 26 Mechanical Ventilator 80 06/13/19 16:45 85 26 94/54 (67) 97 06/13/19 16:41 87 26 80 06/13/19 16:30 90 26 90/51 (64) 86 06/13/19 16:15 73 26 103/55 (71) 97 06/13/19 16:00 74 06/13/19 16:00 80 06/13/19 16:00 71 27 106/59 (75) 97 06/13/19 16:00 103/55 06/13/19 16:00 26 Mechanical Ventilator 80 06/13/19 15:45 74 26 114/60 (78) 97 06/13/19 15:30 72 26 121/65 (83) 98 06/13/19 15:15 73 27 122/66 (84) 99 06/13/19 15:15 121/65 06/13/19 15:00 96.9 78 26 110/61 (77) 97 06/13/19 15:00 122/66 06/13/19 15:00 26 Mechanical Ventilator 80 06/13/19 14:54 84 31 60 06/13/19 14:45 77 26 107/58 (74) 97 06/13/19 14:30 76 21 106/61 (76) 96 06/13/19 14:15 79 21 110/67 (81) 96 06/13/19 14:00 79 26 111/61 (78) 96 06/13/19 14:00 110/67 06/13/19 14:00 26 Mechanical Ventilator 80 06/13/19 13:45 67 26 100/72 (81) 93 06/13/19 13:30 79 25 135/69 (91) 93 06/13/19 13:15 69 26 144/68 (93) 96 06/13/19 13:15 135/69 06/13/19 13:00 73 24 153/69 (97) 95 06/13/19 13:00 144/68 06/13/19 13:00 26 Mechanical Ventilator 80 06/13/19 12:56 71 19 116/56 (76) 94 06/13/19 12:45 80 26 177/67 (103) 95 06/13/19 12:39 26 Mechanical Ventilator 100 06/13/19 12:30 75 26 136/61 (86) 95 06/13/19 12:30 26 Mechanical Ventilator 80 06/13/19 12:30 26 139/61 Mechanical Ventilator 80 06/13/19 12:30 75 26 60 06/13/19 12:00 79 06/13/19 12:00 75 26 108/58 (75) 92 06/13/19 12:00 139/61 06/13/19 12:00 26 Mechanical Ventilator 70 06/13/19 12:00 26 Mechanical Ventilator 70 06/13/19 12:00 26 139/61 Mechanical Ventilator 70 06/13/19 12:00 139/61 06/13/19 12:00 99.2 108/58 (75) 06/13/19 12:00 80 06/13/19 11:47 125/60 06/13/19 11:46 99.5 06/13/19 11:30 77 26 128/61 (83) 94 06/13/19 11:00 26 Mechanical Ventilator 70 06/13/19 11:00 26 Mechanical Ventilator 70 06/13/19 11:00 26 128/61 Mechanical Ventilator 70 06/13/19 11:00 140/62 06/13/19 11:00 80 25 140/62 (88) 96 06/13/19 10:40 84 26 60 06/13/19 10:30 82 26 116/57 (76) 95 06/13/19 10:00 26 Mechanical Ventilator 50 06/13/19 10:00 26 Mechanical Ventilator 50 06/13/19 10:00 26 140/62 Mechanical Ventilator 50 06/13/19 10:00 109/50 06/13/19 10:00 115 27 109/57 (74) 98 06/13/19 09:45 88 27 109/58 (75) 98 06/13/19 09:30 84 26 59/37 (44) 99 06/13/19 09:00 121/58 06/13/19 09:00 26 Mechanical Ventilator 50 06/13/19 09:00 26 Mechanical Ventilator 50 06/13/19 09:00 26 124/57 Mechanical Ventilator 50 06/13/19 09:00 119/57 06/13/19 09:00 84 26 121/58 (79) 99 06/13/19 08:41 83 26 60 06/13/19 08:30 85 27 119/57 (77) 98 06/13/19 08:00 104.0 06/13/19 08:00 85 06/13/19 08:00 26 Mechanical Ventilator 50 06/13/19 08:00 26 Mechanical Ventilator 50 06/13/19 08:00 26 116/56 Mechanical Ventilator 50 06/13/19 08:00 124/57 06/13/19 08:00 50 06/13/19 08:00 85 26 121/57 (78) 98 06/13/19 07:30 85 26 124/57 (79) 98 06/13/19 07:30 101.3 06/13/19 07:25 86 26 60 06/13/19 07:23 116/56 06/13/19 07:00 85 14 116/56 (76) 98 06/13/19 07:00 18 Mechanical Ventilator 50 06/13/19 07:00 18 Mechanical Ventilator 50 06/13/19 07:00 24 115/56 Mechanical Ventilator 50 06/13/19 07:00 115/56 06/13/19 06:30 85 115/56 (75) 06/13/19 06:00 84 110/54 (72) 06/13/19 06:00 18 Mechanical Ventilator 50 06/13/19 06:00 18 110/54 Mechanical Ventilator 50 06/13/19 06:00 110/54 06/13/19 05:30 85 96/50 (65) 06/13/19 05:12 86 26 60 06/13/19 05:09 26 Mechanical Ventilator 70 06/13/19 05:09 26 109/53 Mechanical Ventilator 50 06/13/19 05:09 103/53 06/13/19 05:00 102.3 84 103/53 (70) 06/13/19 04:30 84 1 109/54 (72) 97 06/13/19 04:00 22 Mechanical Ventilator 70 06/13/19 04:00 22 96/52 Mechanical Ventilator 70.0 06/13/19 04:00 96/52 06/13/19 04:00 86 21 84/47 (59) 89 06/13/19 04:00 79 06/13/19 04:00 50 06/13/19 03:33 84 26 60 06/13/19 03:30 82 26 116/54 (74) 97 06/13/19 03:12 114/62 06/13/19 03:00 22 Mechanical Ventilator 70 06/13/19 03:00 26 116/54 Mechanical Ventilator 70 06/13/19 03:00 83 26 114/52 (72) 97 06/13/19 02:30 82 26 117/51 (73) 97 06/13/19 02:20 26 Mechanical Ventilator 70 06/13/19 02:20 26 114/51 Mechanical Ventilator 70 06/13/19 02:20 114/51 06/13/19 02:00 100.6 82 26 114/51 (72) 97 06/13/19 01:30 83 27 113/51 (71) 97 06/13/19 01:16 81 26 70 06/13/19 01:00 83 26 109/52 (71) 98 06/13/19 01:00 83 26 109/52 (71) 98 06/13/19 01:00 26 Mechanical Ventilator 70 06/13/19 01:00 26 109/52 Mechanical Ventilator 70 06/13/19 01:00 109/52 06/13/19 00:30 82 27 115/51 (72) 97 06/13/19 00:00 101.7 81 26 111/51 (71) 97 06/13/19 00:00 26 Mechanical Ventilator 70 06/13/19 00:00 26 111/51 Mechanical Ventilator 70 06/13/19 00:00 111/51 06/12/19 23:45 85 22 110/52 (71) 96 06/12/19 23:30 82 27 113/51 (71) 98 06/12/19 23:21 83 26 70 06/12/19 23:15 82 26 122/58 (79) 98 06/12/19 23:00 26 Mechanical Ventilator 70 06/12/19 23:00 26 130/53 Mechanical Ventilator 70 06/12/19 23:00 130/53 06/12/19 23:00 76 26 130/53 (78) 99 06/12/19 22:51 108/51 06/12/19 22:45 88 26 116/54 (74) 96 06/12/19 22:30 82 26 108/51 (70) 98 06/12/19 22:15 82 27 110/50 (70) 98 06/12/19 22:00 28 Mechanical Ventilator 70 06/12/19 22:00 28 112/52 Mechanical Ventilator 70 06/12/19 22:00 112/52 06/12/19 22:00 82 28 112/52 (72) 98 06/12/19 21:45 83 29 96/47 (63) 98 06/12/19 21:45 29 Mechanical Ventilator 70 06/12/19 21:45 29 96/47 Mechanical Ventilator 70 06/12/19 21:45 96/47 I&O Intake and Output 06/12/19 06/13/19 19:00 07:00 Intake Total 1333.893 ml 1027.709 ml Output Total 1020 ml 30 ml Balance 313.893 ml 997.709 ml IV Total 1333.893 ml 1027.709 ml Output Urine Total 20 ml 30 ml Hemodialysis UF 1000 ml Cardiovascular: RSR Respiratory: decreased breath sounds Abdomen: soft, decreased bowel sounds Extremities: no tenderness, no cyanosis, other Laboratory Tests Test 06/13/19 05:35 06/13/19 07:30 White Blood Count 19.9 K/UL (4.8-10.8) H Red Blood Count 2.68 M/UL (4.70-6.10) L Hemoglobin 8.3 G/DL (14.2-18.0) L Hematocrit 24.5 % (42.0-52.0) L Mean Corpuscular Volume 91 FL (80-99) Mean Corpuscular Hemoglobin 31.1 PG (27.0-31.0) H Mean Corpuscular Hemoglobin Concent 34.0 G/DL (32.0-36.0) Red Cell Distribution Width 14.8 % (11.6-14.8) Platelet Count 106 K/UL (150-450) L Mean Platelet Volume 7.2 FL (6.5-10.1) Neutrophils (%) (Auto) % (45.0-75.0) Lymphocytes (%) (Auto) % (20.0-45.0) Monocytes (%) (Auto) % (1.0-10.0) Eosinophils (%) (Auto) % (0.0-3.0) Basophils (%) (Auto) % (0.0-2.0) Differential Total Cells Counted 100 Neutrophils % (Manual) 84 % (45-75) H Lymphocytes % (Manual) 9 % (20-45) L Monocytes % (Manual) 6 % (1-10) Eosinophils % (Manual) 0 % (0-3) Basophils % (Manual) 1 % (0-2) Band Neutrophils 0 % (0-8) Platelet Estimate Decreased L Platelet Morphology Normal Hypochromasia 1+ Sodium Level 134 MMOL/L (136-145) L Potassium Level 4.9 MMOL/L (3.5-5.1) Chloride Level 92 MMOL/L (98-107) L Carbon Dioxide Level 23 MMOL/L (21-32) Anion Gap 19 mmol/L (5-15) H Blood Urea Nitrogen 81 mg/dL (7-18) H Creatinine 10.7 MG/DL (0.55-1.30) H Estimat Glomerular Filtration Rate 4.9 mL/min (>60) Glucose Level 379 MG/DL (74-106) #H Uric Acid 8.0 MG/DL (2.6-7.2) H Calcium Level 7.8 MG/DL (8.5-10.1) L Phosphorus Level 7.3 MG/DL (2.5-4.9) H Magnesium Level 2.3 MG/DL (1.8-2.4) Total Bilirubin 0.3 MG/DL (0.2-1.0) Gamma Glutamyl Transpeptidase 10 U/L (5-85) Aspartate Amino Transf (AST/SGOT) 77 U/L (15-37) H Alanine Aminotransferase (ALT/SGPT) 26 U/L (12-78) Alkaline Phosphatase 100 U/L (46-116) Lactate Dehydrogenase 508 U/L (81-234) H Total Creatine Kinase 490 U/L (26-308) H Troponin I 0.076 ng/mL (0.000-0.056) C-Reactive Protein, Quantitative 28.9 mg/dL (0.00-0.90) H Pro-B-Type Natriuretic Peptide 49663 pg/mL (0-125) H Total Protein 7.4 G/DL (6.4-8.2) Albumin 2.0 G/DL (3.4-5.0) L Globulin 5.4 g/dL Albumin/Globulin Ratio 0.4 (1.0-2.7) L Cortisol AM Sample Pending Arterial Blood pH 7.291 (7.350-7.450) Arterial Blood Partial Pressure CO2 44.4 mmHg (35.0-45.0) Arterial Blood Partial Pressure O2 87.3 mmHg (75.0-100.0) Arterial Blood HCO3 20.9 mmol/L (22.0-26.0) L Arterial Blood Oxygen Saturation 95.1 % (95-100) Arterial Blood Base Excess -5.4 (-2-2) L Kosta Test Positive Plan Problems: (1) Suspected COVID-19 virus infection (2) HTN (hypertension) (3) CASSANDRA (acute kidney injury) Assessment & Plan: Needs urgent HD needs access patient okay and consented see note will follow with recs new line placed discussed with team and nephrology HD line functional when checked has TPA now please use appropriately Cathflo used again this flow during dialysis on 430 was low. Will monitor may need Plan for line change / (4) Anemia in chronic kidney disease (CKD) (5) Anemia (6) Renal failure (7) Suspected COVID-19 virus infection (8) COVID-19 Assessment & Plan: COVID + c diff negative febrile leukocytosis renal insufficiency see above cont resp care Rx as per ID worsening on vent support now cxr noted on pressors prognosis guarded Yaniv Mast June 13, 2019 21:44
--- NOTE | 2019-06-13 22:26 | General Progress Note ---
Assessment/Plan Problem List: (1) Anemia ICD Codes: D64.9 - Anemia, unspecified SNOMED: 558572638 (2) Renal failure ICD Codes: N19 - Unspecified kidney failure SNOMED: 92849503 (3) Suspected COVID-19 virus infection ICD Codes: R68.89 - Other general symptoms and signs SNOMED: 958499911 (4) HTN (hypertension) ICD Codes: I10 - Essential (primary) hypertension SNOMED: 87340157 (5) CASSANDRA (acute kidney injury) ICD Codes: N17.9 - Acute kidney failure, unspecified SNOMED: 1839590, 07005423 (6) Anemia in chronic kidney disease (CKD) ICD Codes: N18.9 - Chronic kidney disease, unspecified; D63.1 - Anemia in chronic kidney disease SNOMED: 798943768 (7) Suspected COVID-19 virus infection ICD Codes: R68.89 - Other general symptoms and signs SNOMED: 516566182 Status: progressing Assessment/Plan: renal failure requiring diaylsisg s/p pressor pna covid positve improving leukocytosis h/h stable weak sepsis poor prognosis not improving abx per id Subjective ROS Limited/Unobtainable: Yes Allergies: Coded Allergies: No Known Allergies (Unverified , 05/28/19) Objective Last 24 Hour Vital Signs Date Time Temp Pulse Resp B/P (MAP) Pulse Ox O2 Delivery O2 Flow Rate FiO2 06/13/19 22:00 68 26 115/61 (79) 97 06/13/19 21:45 68 26 112/61 (78) 97 06/13/19 21:30 67 26 112/60 (77) 97 06/13/19 21:15 67 26 117/62 (80) 98 06/13/19 21:00 66 26 113/64 (80) 98 06/13/19 20:45 66 26 129/66 (87) 99 06/13/19 20:45 117/62 06/13/19 20:30 65 26 133/69 (90) 98 06/13/19 20:15 64 26 140/75 (96) 100 06/13/19 20:00 97.8 64 28 136/71 (92) 99 06/13/19 20:00 26 Mechanical Ventilator 80 06/13/19 20:00 80 06/13/19 20:00 62 5/3/20 19:54 66 29 80 5/20 19:45 67 30 132/70 (90) 99 20 19:30 68 28 130/65 (86) 100 5/20 19:15 71 26 116/62 (80) 98 5//20 19:00 116/62 5//20 19:00 26 Mechanical Ventilator 80 20 19:00 94 24 95/57 (70) 99 06/12/20 18:45 80 26 106/58 (74) 94 06/12/20 18:30 75 27 117/67 (84) 98 06/12/20 18:15 75 26 120/65 (83) 98 20 18:00 77 26 120/68 (85) 99 20 18:00 120/65 20 18:00 26 Mechanical Ventilator 80 06/13/19 17:45 77 29 122/72 (89) 99 20 17:30 79 26 116/68 (84) 99 20 17:15 79 27 102/66 (78) 99 20 17:00 80 25 100/60 (73) 98 06/12/20 17:00 100/60 5 17:00 26 Mechanical Ventilator 80 06/13/19 16:45 85 26 94/54 (67) 97 06/13/19 16:41 87 26 80 //20 16:30 90 26 90/51 (64) 86 06/12/20 16:15 73 26 103/55 (71) 97 20 16:00 74 20 16:00 80 20 16:00 71 27 106/59 (75) 97 06/12/20 16:00 103/55 5//20 16:00 26 Mechanical Ventilator 80 06/13/19 15:45 74 26 114/60 (78) 97 06/12/20 15:30 72 26 121/65 (83) 98 //20 15:15 73 27 122/66 (84) 99 //20 15:15 121/65 5/20 15:00 96.9 78 26 110/61 (77) 97 20 15:00 122/66 520 15:00 26 Mechanical Ventilator 80 06/13/19 14:54 84 31 60 06/13/19 14:45 77 26 107/58 (74) 97 06/13/19 14:30 76 21 106/61 (76) 96 06/13/19 14:15 79 21 110/67 (81) 96 06/13/19 14:00 79 26 111/61 (78) 96 06/13/19 14:00 110/67 06/13/19 14:00 26 Mechanical Ventilator 80 06/13/19 13:45 67 26 100/72 (81) 93 06/13/19 13:30 79 25 135/69 (91) 93 06/13/19 13:15 69 26 144/68 (93) 96 06/13/19 13:15 135/69 06/13/19 13:00 73 24 153/69 (97) 95 06/13/19 13:00 144/68 06/13/19 13:00 26 Mechanical Ventilator 80 06/13/19 12:56 71 19 116/56 (76) 94 06/13/19 12:45 80 26 177/67 (103) 95 06/13/19 12:39 26 Mechanical Ventilator 100 06/13/19 12:30 75 26 136/61 (86) 95 06/13/19 12:30 26 Mechanical Ventilator 80 06/13/19 12:30 26 139/61 Mechanical Ventilator 80 06/13/19 12:30 75 26 60 06/13/19 12:00 79 06/13/19 12:00 75 26 108/58 (75) 92 06/13/19 12:00 139/61 06/13/19 12:00 26 Mechanical Ventilator 70 06/13/19 12:00 26 Mechanical Ventilator 70 06/13/19 12:00 26 139/61 Mechanical Ventilator 70 06/13/19 12:00 139/61 06/13/19 12:00 99.2 108/58 (75) 06/13/19 12:00 80 06/13/19 11:47 125/60 06/13/19 11:46 99.5 06/13/19 11:30 77 26 128/61 (83) 94 06/13/19 11:00 26 Mechanical Ventilator 70 06/13/19 11:00 26 Mechanical Ventilator 70 06/13/19 11:00 26 128/61 Mechanical Ventilator 70 06/13/19 11:00 140/62 06/13/19 11:00 80 25 140/62 (88) 96 06/13/19 10:40 84 26 60 06/13/19 10:30 82 26 116/57 (76) 95 06/13/19 10:00 26 Mechanical Ventilator 50 06/13/19 10:00 26 Mechanical Ventilator 50 06/13/19 10:00 26 140/62 Mechanical Ventilator 50 06/13/19 10:00 109/50 06/13/19 10:00 115 27 109/57 (74) 98 06/13/19 09:45 88 27 109/58 (75) 98 06/13/19 09:30 84 26 59/37 (44) 99 06/13/19 09:00 121/58 06/13/19 09:00 26 Mechanical Ventilator 50 06/13/19 09:00 26 Mechanical Ventilator 50 06/13/19 09:00 26 124/57 Mechanical Ventilator 50 06/13/19 09:00 119/57 06/13/19 09:00 84 26 121/58 (79) 99 06/13/19 08:41 83 26 60 06/13/19 08:30 85 27 119/57 (77) 98 06/13/19 08:00 104.0 06/13/19 08:00 85 06/13/19 08:00 26 Mechanical Ventilator 50 06/13/19 08:00 26 Mechanical Ventilator 50 06/13/19 08:00 26 116/56 Mechanical Ventilator 50 06/13/19 08:00 124/57 06/13/19 08:00 50 06/13/19 08:00 85 26 121/57 (78) 98 06/13/19 07:30 85 26 124/57 (79) 98 06/13/19 07:30 101.3 06/13/19 07:25 86 26 60 06/13/19 07:23 116/56 06/13/19 07:00 85 14 116/56 (76) 98 06/13/19 07:00 18 Mechanical Ventilator 50 06/13/19 07:00 18 Mechanical Ventilator 50 06/13/19 07:00 24 115/56 Mechanical Ventilator 50 06/13/19 07:00 115/56 06/13/19 06:30 85 115/56 (75) 06/13/19 06:00 84 110/54 (72) 06/13/19 06:00 18 Mechanical Ventilator 50 06/13/19 06:00 18 110/54 Mechanical Ventilator 50 06/13/19 06:00 110/54 06/13/19 05:30 85 96/50 (65) 06/13/19 05:12 86 26 60 06/13/19 05:09 26 Mechanical Ventilator 70 06/13/19 05:09 26 109/53 Mechanical Ventilator 50 06/13/19 05:09 103/53 06/13/19 05:00 102.3 84 103/53 (70) 06/13/19 04:30 84 1 109/54 (72) 97 06/13/19 04:00 22 Mechanical Ventilator 70 06/13/19 04:00 22 96/52 Mechanical Ventilator 70.0 06/13/19 04:00 96/52 06/13/19 04:00 86 21 84/47 (59) 89 06/13/19 04:00 79 06/13/19 04:00 50 06/13/19 03:33 84 26 60 06/13/19 03:30 82 26 116/54 (74) 97 06/13/19 03:12 114/62 06/13/19 03:00 22 Mechanical Ventilator 70 06/13/19 03:00 26 116/54 Mechanical Ventilator 70 06/13/19 03:00 83 26 114/52 (72) 97 06/13/19 02:30 82 26 117/51 (73) 97 06/13/19 02:20 26 Mechanical Ventilator 70 06/13/19 02:20 26 114/51 Mechanical Ventilator 70 06/13/19 02:20 114/51 06/13/19 02:00 100.6 82 26 114/51 (72) 97 06/13/19 01:30 83 27 113/51 (71) 97 06/13/19 01:16 81 26 70 06/13/19 01:00 83 26 109/52 (71) 98 06/13/19 01:00 83 26 109/52 (71) 98 06/13/19 01:00 26 Mechanical Ventilator 70 06/13/19 01:00 26 109/52 Mechanical Ventilator 70 06/13/19 01:00 109/52 06/13/19 00:30 82 27 115/51 (72) 97 06/13/19 00:00 101.7 81 26 111/51 (71) 97 06/13/19 00:00 26 Mechanical Ventilator 70 06/13/19 00:00 26 111/51 Mechanical Ventilator 70 06/13/19 00:00 111/51 06/12/19 23:45 85 22 110/52 (71) 96 06/12/19 23:30 82 27 113/51 (71) 98 06/12/19 23:21 83 26 70 06/12/19 23:15 82 26 122/58 (79) 98 06/12/19 23:00 26 Mechanical Ventilator 70 06/12/19 23:00 26 130/53 Mechanical Ventilator 70 06/12/19 23:00 130/53 06/12/19 23:00 76 26 130/53 (78) 99 06/12/19 22:51 108/51 06/12/19 22:45 88 26 116/54 (74) 96 06/12/19 22:30 82 26 108/51 (70) 98 Intake and Output 06/12/19 06/13/19 19:00 07:00 Intake Total 1333.893 ml 1027.709 ml Output Total 1020 ml 30 ml Balance 313.893 ml 997.709 ml IV Total 1333.893 ml 1027.709 ml Output Urine Total 20 ml 30 ml Hemodialysis UF 1000 ml Laboratory Tests 06/13/19 05:35: White Blood Count 19.9H, Red Blood Count 2.68L, Hemoglobin 8.3L, Hematocrit 24.5L, Mean Corpuscular Volume 91, Mean Corpuscular Hemoglobin 31.1H, Mean Corpuscular Hemoglobin Concent 34.0, Red Cell Distribution Width 14.8, Platelet Count 106L, Mean Platelet Volume 7.2, Neutrophils (%) (Auto) , Lymphocytes (%) ( Auto) , Monocytes (%) (Auto) , Eosinophils (%) (Auto) , Basophils (%) (Auto) , Differential Total Cells Counted 100, Neutrophils % (Manual) 84H, Lymphocytes % (Manual) 9L, Monocytes % (Manual) 6, Eosinophils % (Manual) 0, Basophils % ( Manual) 1, Band Neutrophils 0, Platelet Estimate DecreasedL, Platelet Morphology Normal, Hypochromasia 1+, Sodium Level 134L, Potassium Level 4.9, Chloride Level 92L, Carbon Dioxide Level 23, Anion Gap 19H, Blood Urea Nitrogen 81H, Creatinine 10.7H, Estimat Glomerular Filtration Rate 4.9, Glucose Level 379 #H, Uric Acid 8.0H, Calcium Level 7.8L, Phosphorus Level 7.3H, Magnesium Level 2.3, Total Bilirubin 0.3, Gamma Glutamyl Transpeptidase 10, Aspartate Amino Transf (AST/SGOT) 77H, Alanine Aminotransferase (ALT/SGPT) 26, Alkaline Phosphatase 100, Lactate Dehydrogenase 508H, Total Creatine Kinase 490H, Troponin I 0.076H, C-Reactive Protein, Quantitative 28.9H, Pro-B-Type Natriuretic Peptide 80354C, Total Protein 7.4, Albumin 2.0L, Globulin 5.4, Albumin/Globulin Ratio 0.4L, Cortisol AM Sample [Pending] 06/13/19 07:30: Arterial Blood pH 7.291L, Arterial Blood Partial Pressure CO2 44.4, Arterial Blood Partial Pressure O2 87.3, Arterial Blood HCO3 20.9L, Arterial Blood Oxygen Saturation 95.1, Arterial Blood Base Excess -5.4L, Kosta Test Positive Height (Feet): 6 Height (Inches): 1.00 Weight (Pounds): 188 Karishma Mulligan MD June 13, 2019 22:26
[2019-06-14] VITALS (48 sets, daily range): BP systolic 82–160; BP diastolic 47–77
--- NOTE | 2019-06-14 02:44 | Progress Note ---
DATE: 06/13/2019 SUBJECTIVE: The patient seen in the ICU. The patient was started on Depakote due to severe agitation, attempting to come out of bed. Depakote The patient had kidney failure and is currently on dialysis. MENTAL STATUS EXAMINATION: The patient is awake, ill-appearing, still has some episodes of agitation, confused. Mood is agitated. Affect is flat. Thought process, disorganized. Thought content, no suicidal or homicidal ideation. Cognition is impaired. Insight and judgment is impaired. ASSESSMENT: 1. Dementia. 2. Acute encephalopathy. 3. Major depressive disorder. PLAN: Depakote Sprinkles 250 mg b.i.d. Guicho Pimentel M.D. DR: Shannon JOB#: [id number] CC: [email or web address]
[2019-06-14] MEDS: Albuterol 90mcg Inhaler 8gm INH SCH ×6 (03:00→22:27)
[2019-06-14] MEDS: fentaNYL Citrate 2,500 MCG in NS 200 ML IV SCH ×2 (04:07→15:49)
[2019-06-14] MEDS: Piperacillin/Tazobactam 2.25 GM in D5W 55 ML IVPB SCH ×3 (05:56→20:58)
[2019-06-14 07:15] LABS: INR 1.3 (0.9-1.1)
[2019-06-14 07:24] LABS: HEMOGLOBIN 8.7 G/DL (14.2-18.0); MEAN CORPUSCULAR VOLUME 92 FL (80-99); PLATELET COUNT 122 K/UL (150-450); RED BLOOD COUNT 2.85 M/UL (4.70-6.10)
[2019-06-14 07:40] LABS: WHITE BLOOD COUNT 23.2 K/UL (4.8-10.8)
[2019-06-14 08:08] LABS: ALANINE AMINOTRANSFERASE 44 U/L (12-78); ALBUMIN 2.2 G/DL (3.4-5.0); ALBUMIN/GLOBULIN RATIO 0.4 (1.0-2.7); ALKALINE PHOSPHATASE 88 U/L (46-116); ANION GAP 20 mmol/L (5-15); ASPARTATE AMINO TRANSFERASE 91 U/L (15-37); BILIRUBIN,TOTAL 0.4 MG/DL (0.2-1.0); BLOOD UREA NITROGEN 96 mg/dL (7-18); CALCIUM 8.4 MG/DL (8.5-10.1); CARBON DIOXIDE 21 MMOL/L (21-32); CHLORIDE 87 MMOL/L (98-107); CREATININE 11.6 MG/DL (0.55-1.30); PHOSPHORUS 8.3 MG/DL (2.5-4.9); SODIUM 128 MMOL/L (136-145)
[2019-06-14] MEDS: Wixela 100/50 Inhaler - 60 dose INH SCH ×2 (09:00→17:00)
[2019-06-14] MEDS: Docusate 100mg/10ml Liq NG SCH ×3 (09:01→18:13)
[2019-06-14] MEDS: Midodrine 10mg tab NG SCH ×3 (09:01→18:00)
[2019-06-14] MEDS: Depakote 125mg Sprinkles ORAL SCH (09:01)
[2019-06-14] MEDS: Pantoprazole Inj IVP SCH ×2 (09:01→20:58)
[2019-06-14] MEDS: Enoxaparin 30mg Inj SUBQ SCH (09:02)
[2019-06-14] MEDS: Renvela 800mg Pkt NG SCH ×3 (09:02→18:13)
[2019-06-14] MEDS: Vasopressin 100 UNITS in NS 95 ML IV SCH (09:03)
[2019-06-14] MEDS: Norepinephrine Bitartrate 16 MG in D5W 500ml 550 ML IV SCH ×2 (09:05→18:40)
--- NOTE | 2019-06-14 09:46 | Nephrology Progress Note ---
Assessment/Plan Problem List: (1) CASSANDRA (acute kidney injury) (2) Anemia in chronic kidney disease (CKD) (3) HTN (hypertension) (4) COVID-19 Assessment Acute renal failure most likely superimposed on chronic kidney disease Suspected COVID-19 virus infection Possible Pneumonia, lymphopenia, elevated AST Cardiomegaly, possible CHF COPD Hypertension Anemia, most likely related to chronic kidney disease Plan June 4: Discussed with RN in ICU Patient did not receive proper dialysis yesterday due to dialysis catheter malfunction Catheter to be adjusted today and dialyzed to be resumed today Continue per consultants Positive for COVID 28 June 2: Patient now intubated on mechanical ventilation Discussed with SHANIQUE Yuen, today June 12 Patient received dialysis yesterday June 10 next hemodialysis June 12 Blood pressure better maintained Today's labs reviewed Continue per consultants Previously patient received dialysis last evening June 05, next dialysis June 07 which was incomplete due to patient's hypotension Will start on midodrine for blood pressure support. Meanwhile continue other pressors as needed Previously Patient is doing poorly, septic, white blood cells are rising, Hypotension somewhat improved We will keep n.p.o. , NG tube for medications, and change medication to IV as needed Patient remains full code Monitor vancomycin level Previously: Patient pulled out his femoral catheter yesterday June 03 which was reinserted by Dr. Mast Patient scheduled for dialysis again June 04, which again was not done due to dialysis nurse citing catheter malfunction Meanwhile continue management per ID, pulmonary , and psych. Meanwhile white blood cell count is rising. Patient blood pressure borderline low. Will check ABG Previously May 31 : I believe patient need dialysis treatment He however needs to competency assessment if can make decisions or not I will communicate with Dr. Mulligan Previously: Per pulmonary and ID advice Adjust blood pressure medication Renal diet Anemia work-up 2D echocardiogram refused Kidney ultrasound refused Jules catheter Urine studies Per orders Subjective ROS Limited/Unobtainable: Yes Objective Objective Last 24 Hour Vital Signs Date Time Temp Pulse Resp B/P (MAP) Pulse Ox O2 Delivery O2 Flow Rate FiO2 06/14/19 09:05 118/63 06/14/19 07:17 72 26 60 06/14/19 07:00 99.0 72 25 122/63 (82) 94 06/14/19 06:50 121/61 06/14/19 06:50 26 Mechanical Ventilator 60 06/14/19 06:30 72 29 126/68 (87) 96 06/14/19 06:00 70 27 125/68 (87) 99 06/14/19 06:00 125/68 06/14/19 06:00 26 Mechanical Ventilator 70 06/14/19 05:48 99.8 06/14/19 05:34 71 28 60 06/14/19 05:30 70 24 110/59 (76) 98 06/14/19 05:00 77 22 93/59 (70) 95 06/14/19 05:00 93/59 06/14/19 05:00 26 Mechanical Ventilator 70 06/14/19 04:30 99.8 103 23 108/62 (77) 95 06/14/19 04:07 28 Mechanical Ventilator 100 06/14/19 04:00 70 06/14/19 04:00 70 29 126/66 (86) 96 06/14/19 04:00 70 06/14/19 03:30 66 29 141/70 (93) 98 06/14/19 03:22 65 28 60 06/14/19 03:00 63 31 160/74 (102) 99 06/14/19 03:00 160/72 06/14/19 03:00 26 Mechanical Ventilator 70 06/14/19 02:30 65 25 112/61 (78) 100 06/14/19 02:00 106/59 06/14/19 02:00 26 Mechanical Ventilator 70 06/14/19 02:00 67 26 106/59 (75) 100 06/14/19 01:45 100/54 06/14/19 01:30 69 26 97/56 (70) 99 06/14/19 01:30 97/56 06/14/19 01:29 69 26 80 06/14/19 01:00 66 31 109/60 (76) 99 06/14/19 01:00 109/60 06/14/19 01:00 28 Mechanical Ventilator 70 06/14/19 00:30 65 27 114/64 (81) 99 06/14/19 00:30 114/64 06/14/19 00:15 122/68 06/14/19 00:00 126/70 06/14/19 00:00 26 Mechanical Ventilator 70 06/14/19 00:00 97.4 62 28 126/70 (88) 98 5/3/20 23:45 130/70 06/13/19 23:37 59 26 80 06/13/19 23:30 62 32 138/71 (93) 98 06/13/19 23:00 98.6 65 28 132/67 (88) 99 06/13/19 23:00 26 Mechanical Ventilator 70 06/13/19 22:43 117/62 06/13/19 22:30 67 31 119/64 (82) 98 06/13/19 22:00 115/61 06/13/19 22:00 26 Mechanical Ventilator 70 06/13/19 22:00 68 26 115/61 (79) 97 06/13/19 21:45 68 26 112/61 (78) 97 06/13/19 21:45 112/61 06/13/19 21:39 67 29 80 06/13/19 21:30 112/60 06/13/19 21:30 67 26 112/60 (77) 97 06/13/19 21:15 67 26 117/62 (80) 98 06/13/19 21:15 117/62 06/13/19 21:00 113/64 06/13/19 21:00 28 Mechanical Ventilator 70 06/13/19 21:00 66 26 113/64 (80) 98 06/13/19 20:45 66 26 129/66 (87) 99 06/13/19 20:45 117/62 06/13/19 20:30 65 26 133/69 (90) 98 20 20:15 64 26 140/75 (96) 100 06/13/19 20:00 97.8 64 28 136/71 (92) 99 06/13/19 20:00 26 Mechanical Ventilator 80 06/13/19 20:00 80 20 20:00 62 06/13/19 19:54 66 29 80 06/13/19 19:45 67 30 132/70 (90) 99 06/13/19 19:30 68 28 130/65 (86) 100 06/13/19 19:15 71 26 116/62 (80) 98 20 19:00 116/62 20 19:00 26 Mechanical Ventilator 80 06/13/19 19:00 94 24 95/57 (70) 99 06/13/19 18:45 80 26 106/58 (74) 94 5/3/20 18:30 75 27 117/67 (84) 98 5//20 18:15 75 26 120/65 (83) 98 20 18:00 77 26 120/68 (85) 99 20 18:00 120/65 520 18:00 26 Mechanical Ventilator 80 06/13/19 17:45 77 29 122/72 (89) 99 20 17:30 79 26 116/68 (84) 99 20 17:15 79 27 102/66 (78) 99 20 17:00 80 25 100/60 (73) 98 06/13/19 17:00 100/60 5 17:00 26 Mechanical Ventilator 80 06/13/19 16:45 85 26 94/54 (67) 97 06/13/19 16:41 87 26 80 06/13/19 16:30 90 26 90/51 (64) 86 06/13/19 16:15 73 26 103/55 (71) 97 06/13/19 16:00 74 06/13/19 16:00 80 06/13/19 16:00 71 27 106/59 (75) 97 06/13/19 16:00 103/55 06/13/19 16:00 26 Mechanical Ventilator 80 06/13/19 15:45 74 26 114/60 (78) 97 06/13/19 15:30 72 26 121/65 (83) 98 06/13/19 15:15 73 27 122/66 (84) 99 06/13/19 15:15 121/65 06/13/19 15:00 96.9 78 26 110/61 (77) 97 20 15:00 122/66 06/13/19 15:00 26 Mechanical Ventilator 80 06/13/19 14:54 84 31 60 5/04/29 14:45 77 26 107/58 (74) 97 06/13/19 14:30 76 21 106/61 (76) 96 06/12/20 14:15 79 21 110/67 (81) 96 06/12/20 14:00 79 26 111/61 (78) 96 20 14:00 110/67 06/13/19 14:00 26 Mechanical Ventilator 80 06/13/19 13:45 67 26 100/72 (81) 93 06/13/19 13:30 79 25 135/69 (91) 93 06/13/19 13:15 69 26 144/68 (93) 96 06/13/19 13:15 135/69 06/13/19 13:00 73 24 153/69 (97) 95 06/13/19 13:00 144/68 06/13/19 13:00 26 Mechanical Ventilator 80 06/13/19 12:56 71 19 116/56 (76) 94 06/13/19 12:45 80 26 177/67 (103) 95 06/13/19 12:39 26 Mechanical Ventilator 100 06/13/19 12:30 75 26 136/61 (86) 95 06/13/19 12:30 26 Mechanical Ventilator 80 06/13/19 12:30 26 139/61 Mechanical Ventilator 80 06/13/19 12:30 75 26 60 06/13/19 12:00 79 06/13/19 12:00 75 26 108/58 (75) 92 06/13/19 12:00 139/61 06/13/19 12:00 26 Mechanical Ventilator 70 06/13/19 12:00 26 Mechanical Ventilator 70 06/13/19 12:00 26 139/61 Mechanical Ventilator 70 06/13/19 12:00 139/61 06/13/19 12:00 99.2 108/58 (75) 06/13/19 12:00 80 06/13/19 11:47 125/60 06/13/19 11:46 99.5 06/13/19 11:30 77 26 128/61 (83) 94 06/13/19 11:00 26 Mechanical Ventilator 70 06/13/19 11:00 26 Mechanical Ventilator 70 06/13/19 11:00 26 128/61 Mechanical Ventilator 70 06/13/19 11:00 140/62 06/13/19 11:00 80 25 140/62 (88) 96 06/13/19 10:40 84 26 60 06/13/19 10:30 82 26 116/57 (76) 95 06/13/19 10:00 26 Mechanical Ventilator 50 06/13/19 10:00 26 Mechanical Ventilator 50 06/13/19 10:00 26 140/62 Mechanical Ventilator 50 06/13/19 10:00 109/50 06/13/19 10:00 115 27 109/57 (74) 98 06/13/19 09:45 88 27 109/58 (75) 98 Intake and Output 06/13/19 06/14/19 19:00 07:00 Intake Total 1499.6050 ml 1227.10 ml Output Total 30 ml 20 ml Balance 1469.6050 ml 1207.10 ml IV Total 1459.6050 ml 1202.10 ml Tube Feeding 40 ml 25 ml Output Urine Total 30 ml 20 ml Laboratory Tests 06/14/19 05:30: White Blood Count 23.2*H, Red Blood Count 2.85L, Hemoglobin 8.7L, Hematocrit 26.0L, Mean Corpuscular Volume 92, Mean Corpuscular Hemoglobin 30.5, Mean Corpuscular Hemoglobin Concent 33.4, Red Cell Distribution Width 16.0H, Platelet Count 122L, Mean Platelet Volume 7.3, Neutrophils (%) (Auto) , Lymphocytes (%) (Auto) , Monocytes (%) (Auto) , Eosinophils (%) (Auto) , Basophils (%) (Auto) , Differential Total Cells Counted 100, Neutrophils % ( Manual) 80H, Lymphocytes % (Manual) 8L, Monocytes % (Manual) 11H, Eosinophils % (Manual) 1, Basophils % (Manual) 0, Band Neutrophils 0, Nucleated Red Blood Cells 1, Platelet Estimate DecreasedL, Platelet Morphology Normal, Prothrombin Time 13.2H, Prothromb Time International Ratio 1.3H, Activated Partial Thromboplast Time 33, Sodium Level 128L, Potassium Level 5.0, Chloride Level 87L , Carbon Dioxide Level 21, Anion Gap 20H, Blood Urea Nitrogen 96H, Creatinine 11.6H, Estimat Glomerular Filtration Rate 4.4, Glucose Level 275#H, Uric Acid 8.1H, Calcium Level 8.4L, Phosphorus Level 8.3H, Magnesium Level 2.2, Total Bilirubin 0.4, Aspartate Amino Transf (AST/SGOT) 91H, Alanine Aminotransferase ( ALT/SGPT) 44, Alkaline Phosphatase 88, C-Reactive Protein, Quantitative 25.2H, Pro-B-Type Natriuretic Peptide 92810Q, Total Protein 7.7, Albumin 2.2L, Globulin 5.5, Albumin/Globulin Ratio 0.4L Height (Feet): 6 Height (Inches): 1.00 Weight (Pounds): 189 General Appearance: no apparent distress EENT: other - Intubated and vented Cardiovascular: normal rate Respiratory/Chest: decreased breath sounds Abdomen: distended Objective No change Mic Cole MD June 14, 2019 09:46
--- NOTE | 2019-06-14 10:54 | Diagnostic Imaging Report ---
Indication: Post nasogastric tube placement Technique: Supine view of the upper abdomen Comparison: 06/13/2019 Findings: Previously demonstrated nasogastric tube has advanced from the prior position, proximal port well beyond the gastroesophageal junction, tip in the fundus. The included lungs demonstrate extensive parenchymal disease bilaterally. The visualized bowel gas is unremarkable. Impression: Satisfactory position of enteric tube. ICU charge nurse Gayla notified at the time of interpretation.
--- NOTE | 2019-06-14 11:17 | Hematology/Onc Progress Note ---
Assessment/Plan Assessment/Plan Assessment and Recs: # Anemia of chronic disease, likely related ot underlying kidney disease --> hgb trend 9-->8-->7.3-->7.9-->6.8->9.5-->10->8.3 --> transfuse as needed, hgb goal >7 --> no evidence of hemolysis --> peripheral smear has been reviewed --> epogen started tid ==>> transfuse w 2 units 06/08 # Leukocytosis likely related to suspected COVID-19 virus infection --> on abx and plaquenil --> trend smear as needed --> initially 4-->11-->14.5-->21-->26-->21->24--.-->23 --> pulm is aware --> on abx cefepime/vanc->zosyn/vanc --> pressors as neededon board # Lymphopenia --> likely related to covid19 # Possible Pneumonia # Cardiomegaly # Transaminitis with Elevated AST # COPD # Chronic Kidney Disease --> per renal hd # Hypertension # Dvt ppx lovenox Appreciate consultation and ernesto Rn Subjective Allergies: Coded Allergies: No Known Allergies (Unverified , 05/28/19) All Systems: reviewed and negative except above Subjective 06/01 extremely agitated, not allowing labs draws, no night sweats, cbc ordered 06/02 confused, restraints, on abx and plaquenil, hgb 7.9, nrb 15 L 06/03 is with nonrebreather, but not compliant, remains confused 06/05 no bleeding, labs noted, no major bleeding, otherwise comfortable 06/06 labs reviewed, no bleeding, meds noted, no night sweats, on levo and nonrebreather 06/07 labs noted, no bleeding, meds reviewed, no bleeding, wbc higher 06/08 to get 2 units prbc, no night sweats, meds reviewed 06/09 is on cefepime and vanc, labs noted, ernesto Rn, no bleeding 06/10 no major changes, labs reviewed, wbc 28k, on abx, cefepime 06/12 remains in icu, labs noted, no night sweats or bleeding 06/13 sluggish pupils, remains agitated, per psych, no bleding, on vent, wbc sitll high Objective Objective Current Medications Medications (Trade) Dose Ordered Sig/Anthony Route PRN Reason Start Time Stop Time Status Last Admin Dose Admin Acetaminophen (Tylenol) 650 mg Q4H PRN NG Temp >100.5 06/13/19 11:00 07/13/19 10:59 06/13/19 11:46 Albuterol Sulfate (Proventil MDI) 2 puff Q4HRT INH 06/06/19 23:00 08/30/19 18:59 06/11/19 09:15 Allopurinol (allopurinoL) 300 mg DAILY NG 06/08/19 09:30 07/08/19 09:29 06/14/19 09:03 Chlorhexidine Gluconate (Michelle-Hex 2%) 1 applic DAILY@2000 TOPIC 06/07/19 20:00 09/05/19 19:59 06/13/19 20:37 Divalproex Sodium (Depakote Sprinkles) 250 mg EVERY 12 HOURS ORAL 06/12/19 21:00 07/12/19 08:59 06/14/19 09:01 Docusate Sodium (Colace) 100 mg THREE TIMES A DAY NG 06/07/19 13:00 07/07/19 12:59 06/14/19 09:01 Dopamine HCl/ Dextrose 250 ml @ 0 mls/hr Q24H PRN IV For hypotension 06/13/19 08:15 09/11/19 08:14 Enoxaparin Sodium (Lovenox) 30 mg DAILY SUBQ 06/07/19 09:00 08/27/19 08:59 06/14/19 09:02 Epoetin Aftab (Epoetin Aftab(ESRD on dialysis)) 10,000 unit FRI-FRI-FRI SUBQ 06/07/19 21:00 08/31/19 20:59 06/11/19 20:45 Fentanyl Citrate 2500 mcg/Sodium Chloride 250 ml @ 0 mls/hr Q24H IV 06/13/19 07:00 06/20/19 06:59 06/14/19 04:07 Hydralazine HCl (Apresoline) 10 mg Q4H PRN IV Blood pressure over 160 systol 06/07/19 10:15 09/05/19 10:14 Midodrine (Pro-Amatine) 10 mg THREE TIMES A DAY NG 06/09/19 13:00 09/07/19 12:59 06/14/19 09:01 Norepinephrine Bitartrate 16 mg/ Dextrose 566 ml @ 0 mls/hr Q24H IV 06/13/19 09:45 07/13/19 09:44 06/14/19 09:05 Pantoprazole (Protonix) 40 mg Q12HR IVP 06/07/19 21:00 07/07/19 08:59 06/14/19 09:01 Piperacillin Sod/ Tazobactam Sod 2.25 gm/Dextrose 55 ml @ 110 mls/hr Q8HR IVPB 06/13/19 14:00 06/18/19 13:59 06/14/19 05:56 Salmeterol Xinafoate/ Fluticasone (Advair 100/50 Diskus) 1 puffs BID INH 06/07/19 09:00 08/27/19 08:59 06/11/19 09:14 Sevelamer Carbonate (Renvela) 1,600 mg Q6HR NG 06/14/19 12:00 09/05/19 12:59 Vancomycin HCl (Vanco rx to dose) 1 ea DAILY PRN MISC Per rx protocol 06/13/19 11:45 07/13/19 11:44 Vasopressin 100 units/Sodium Chloride 100 ml @ 0 mls/hr Q24H IV 06/12/19 11:00 07/12/19 10:59 06/14/19 09:03 Last 24 Hour Vital Signs Date Time Temp Pulse Resp B/P (MAP) Pulse Ox O2 Delivery O2 Flow Rate FiO2 06/14/19 10:37 77 27 60 06/14/19 09:05 118/63 06/14/19 08:00 60 06/14/19 07:17 72 26 60 06/14/19 07:00 99.0 72 25 122/63 (82) 94 06/14/19 06:50 121/61 06/14/19 06:50 26 Mechanical Ventilator 60 06/14/19 06:30 72 29 126/68 (87) 96 06/14/19 06:00 70 27 125/68 (87) 99 06/14/19 06:00 125/68 06/14/19 06:00 26 Mechanical Ventilator 70 06/14/19 05:48 99.8 06/14/19 05:34 71 28 60 06/14/19 05:30 70 24 110/59 (76) 98 06/14/19 05:00 77 22 93/59 (70) 95 06/14/19 05:00 93/59 06/14/19 05:00 26 Mechanical Ventilator 70 06/14/19 04:30 99.8 103 23 108/62 (77) 95 06/14/19 04:07 28 Mechanical Ventilator 100 06/14/19 04:00 70 06/14/19 04:00 70 29 126/66 (86) 96 06/14/19 04:00 70 06/14/19 03:30 66 29 141/70 (93) 98 06/14/19 03:22 65 28 60 06/14/19 03:00 63 31 160/74 (102) 99 06/14/19 03:00 160/72 06/14/19 03:00 26 Mechanical Ventilator 70 06/14/19 02:30 65 25 112/61 (78) 100 06/14/19 02:00 106/59 06/14/19 02:00 26 Mechanical Ventilator 70 06/14/19 02:00 67 26 106/59 (75) 100 06/14/19 01:45 100/54 06/14/19 01:30 69 26 97/56 (70) 99 06/14/19 01:30 97/56 06/14/19 01:29 69 26 80 06/14/19 01:00 66 31 109/60 (76) 99 06/14/19 01:00 109/60 06/14/19 01:00 28 Mechanical Ventilator 70 06/14/19 00:30 65 27 114/64 (81) 99 06/14/19 00:30 114/64 06/14/19 00:15 122/68 06/14/19 00:00 126/70 06/14/19 00:00 26 Mechanical Ventilator 70 06/14/19 00:00 97.4 62 28 126/70 (88) 98 06/13/19 23:45 130/70 06/13/19 23:37 59 26 80 06/13/19 23:30 62 32 138/71 (93) 98 06/13/19 23:00 98.6 65 28 132/67 (88) 99 5/3/20 23:00 26 Mechanical Ventilator 70 20 22:43 117/62 20 22:30 67 31 119/64 (82) 98 20 22:00 115/61 20 22:00 26 Mechanical Ventilator 70 20 22:00 68 26 115/61 (79) 97 20 21:45 68 26 112/61 (78) 97 20 21:45 112/61 20 21:39 67 29 80 20 21:30 112/60 20 21:30 67 26 112/60 (77) 97 20 21:15 67 26 117/62 (80) 98 20 21:15 117/62 20 21:00 113/64 06/13/19 21:00 28 Mechanical Ventilator 70 06/13/19 21:00 66 26 113/64 (80) 98 20 20:45 66 26 129/66 (87) 99 20 20:45 117/62 20 20:30 65 26 133/69 (90) 98 06/13/19 20:15 64 26 140/75 (96) 100 06/13/19 20:00 97.8 64 28 136/71 (92) 99 06/13/19 20:00 26 Mechanical Ventilator 80 06/13/19 20:00 80 06/13/19 20:00 62 /04/29 19:54 66 29 80 06/13/19 19:45 67 30 132/70 (90) 99 20 19:30 68 28 130/65 (86) 100 20 19:15 71 26 116/62 (80) 98 20 19:00 116/62 20 19:00 26 Mechanical Ventilator 80 06/13/19 19:00 94 24 95/57 (70) 99 20 18:45 80 26 106/58 (74) 94 //20 18:30 75 27 117/67 (84) 98 20 18:15 75 26 120/65 (83) 98 20 18:00 77 26 120/68 (85) 99 20 18:00 120/65 5/3/20 18:00 26 Mechanical Ventilator 80 06/13/19 17:45 77 29 122/72 (89) 99 06/13/19 17:30 79 26 116/68 (84) 99 06/13/19 17:15 79 27 102/66 (78) 99 06/13/19 17:00 80 25 100/60 (73) 98 06/13/19 17:00 100/60 06/13/19 17:00 26 Mechanical Ventilator 80 06/13/19 16:45 85 26 94/54 (67) 97 06/13/19 16:41 87 26 80 06/13/19 16:30 90 26 90/51 (64) 86 06/13/19 16:15 73 26 103/55 (71) 97 06/13/19 16:00 74 06/13/19 16:00 80 06/13/19 16:00 71 27 106/59 (75) 97 06/13/19 16:00 103/55 06/13/19 16:00 26 Mechanical Ventilator 80 06/13/19 15:45 74 26 114/60 (78) 97 06/13/19 15:30 72 26 121/65 (83) 98 06/13/19 15:15 73 27 122/66 (84) 99 06/13/19 15:15 121/65 06/13/19 15:00 96.9 78 26 110/61 (77) 97 06/13/19 15:00 122/66 06/13/19 15:00 26 Mechanical Ventilator 80 06/13/19 14:54 84 31 60 06/13/19 14:45 77 26 107/58 (74) 97 06/13/19 14:30 76 21 106/61 (76) 96 06/13/19 14:15 79 21 110/67 (81) 96 06/13/19 14:00 79 26 111/61 (78) 96 06/13/19 14:00 110/67 06/13/19 14:00 26 Mechanical Ventilator 80 06/13/19 13:45 67 26 100/72 (81) 93 06/13/19 13:30 79 25 135/69 (91) 93 06/13/19 13:15 69 26 144/68 (93) 96 06/13/19 13:15 135/69 06/13/19 13:00 73 24 153/69 (97) 95 06/13/19 13:00 144/68 06/13/19 13:00 26 Mechanical Ventilator 80 06/13/19 12:56 71 19 116/56 (76) 94 06/13/19 12:45 80 26 177/67 (103) 95 06/13/19 12:39 26 Mechanical Ventilator 100 06/13/19 12:30 75 26 136/61 (86) 95 06/13/19 12:30 26 Mechanical Ventilator 80 06/13/19 12:30 26 139/61 Mechanical Ventilator 80 06/13/19 12:30 75 26 60 06/13/19 12:00 79 06/13/19 12:00 75 26 108/58 (75) 92 06/13/19 12:00 139/61 06/13/19 12:00 26 Mechanical Ventilator 70 06/13/19 12:00 26 Mechanical Ventilator 70 06/13/19 12:00 26 139/61 Mechanical Ventilator 70 06/13/19 12:00 139/61 06/13/19 12:00 99.2 108/58 (75) 06/13/19 12:00 80 06/13/19 11:47 125/60 06/13/19 11:46 99.5 06/13/19 11:30 77 26 128/61 (83) 94 06/13/19 11:00 26 Mechanical Ventilator 70 06/13/19 11:00 26 Mechanical Ventilator 70 06/13/19 11:00 26 128/61 Mechanical Ventilator 70 06/13/19 11:00 140/62 06/13/19 11:00 80 25 140/62 (88) 96 06/13/19 10:40 84 26 60 06/13/19 10:30 82 26 116/57 (76) 95 06/13/19 10:00 26 Mechanical Ventilator 50 06/13/19 10:00 26 Mechanical Ventilator 50 06/13/19 10:00 26 140/62 Mechanical Ventilator 50 06/13/19 10:00 109/50 06/13/19 10:00 115 27 109/57 (74) 98 06/13/19 09:45 88 27 109/58 (75) 98 06/13/19 09:30 84 26 59/37 (44) 99 06/13/19 09:00 121/58 06/13/19 09:00 26 Mechanical Ventilator 50 06/13/19 09:00 26 Mechanical Ventilator 50 06/13/19 09:00 26 124/57 Mechanical Ventilator 50 06/13/19 09:00 119/57 06/13/19 09:00 84 26 121/58 (79) 99 06/13/19 08:41 83 26 60 06/13/19 08:30 85 27 119/57 (77) 98 06/13/19 08:00 104.0 06/13/19 08:00 85 06/13/19 08:00 26 Mechanical Ventilator 50 06/13/19 08:00 26 Mechanical Ventilator 50 06/13/19 08:00 26 116/56 Mechanical Ventilator 50 06/13/19 08:00 124/57 06/13/19 08:00 50 06/13/19 08:00 85 26 121/57 (78) 98 06/13/19 07:30 85 26 124/57 (79) 98 06/13/19 07:30 101.3 06/13/19 07:25 86 26 60 06/13/19 07:23 116/56 06/13/19 07:00 85 14 116/56 (76) 98 06/13/19 07:00 18 Mechanical Ventilator 50 06/13/19 07:00 18 Mechanical Ventilator 50 06/13/19 07:00 24 115/56 Mechanical Ventilator 50 06/13/19 07:00 115/56 06/13/19 06:30 85 115/56 (75) 06/13/19 06:00 84 110/54 (72) 06/13/19 06:00 18 Mechanical Ventilator 50 06/13/19 06:00 18 110/54 Mechanical Ventilator 50 06/13/19 06:00 110/54 06/13/19 05:30 85 96/50 (65) 06/13/19 05:12 86 26 60 06/13/19 05:09 26 Mechanical Ventilator 70 06/13/19 05:09 26 109/53 Mechanical Ventilator 50 06/13/19 05:09 103/53 06/13/19 05:00 102.3 84 103/53 (70) 06/13/19 04:30 84 1 109/54 (72) 97 06/13/19 04:00 22 Mechanical Ventilator 70 06/13/19 04:00 22 96/52 Mechanical Ventilator 70.0 06/13/19 04:00 96/52 06/13/19 04:00 86 21 84/47 (59) 89 06/13/19 04:00 79 06/13/19 04:00 50 06/13/19 03:33 84 26 60 06/13/19 03:30 82 26 116/54 (74) 97 06/13/19 03:12 114/62 06/13/19 03:00 22 Mechanical Ventilator 70 06/13/19 03:00 26 116/54 Mechanical Ventilator 70 06/13/19 03:00 83 26 114/52 (72) 97 06/13/19 02:30 82 26 117/51 (73) 97 06/13/19 02:20 26 Mechanical Ventilator 70 06/13/19 02:20 26 114/51 Mechanical Ventilator 70 06/13/19 02:20 114/51 06/13/19 02:00 100.6 82 26 114/51 (72) 97 06/13/19 01:30 83 27 113/51 (71) 97 06/13/19 01:16 81 26 70 06/13/19 01:00 83 26 109/52 (71) 98 06/13/19 01:00 83 26 109/52 (71) 98 06/13/19 01:00 26 Mechanical Ventilator 70 06/13/19 01:00 26 109/52 Mechanical Ventilator 70 06/13/19 01:00 109/52 06/13/19 00:30 82 27 115/51 (72) 97 06/13/19 00:00 101.7 81 26 111/51 (71) 97 06/13/19 00:00 26 Mechanical Ventilator 70 06/13/19 00:00 26 111/51 Mechanical Ventilator 70 06/13/19 00:00 111/51 06/12/19 23:45 85 22 110/52 (71) 96 06/12/19 23:30 82 27 113/51 (71) 98 06/12/19 23:21 83 26 70 06/12/19 23:15 82 26 122/58 (79) 98 06/12/19 23:00 26 Mechanical Ventilator 70 06/12/19 23:00 26 130/53 Mechanical Ventilator 70 06/12/19 23:00 130/53 06/12/19 23:00 76 26 130/53 (78) 99 5/2/20 22:51 108/51 5//20 22:45 88 26 116/54 (74) 96 5//20 22:30 82 26 108/51 (70) 98 5/2/20 22:15 82 27 110/50 (70) 98 /2/20 22:00 28 Mechanical Ventilator 70 20 22:00 28 112/52 Mechanical Ventilator 70 20 22:00 112/52 5//20 22:00 82 28 112/52 (72) 98 06/11/20 21:45 83 29 96/47 (63) 98 20 21:45 29 Mechanical Ventilator 70 20 21:45 29 96/47 Mechanical Ventilator 70 20 21:45 96/47 20 21:30 84 29 84/46 (59) 97 20 21:30 29 Mechanical Ventilator 70 20 21:30 29 84/46 Mechanical Ventilator 70 20 21:30 84/46 20 21:15 88 30 100/46 (64) 98 20 21:15 29 Mechanical Ventilator 70 20 21:15 30 100/46 Mechanical Ventilator 70 20 21:15 100/46 520 21:10 86 27 70 20 21:00 85 31 87/48 (61) 98 06/11/20 21:00 31 Mechanical Ventilator 70 20 21:00 31 87/48 Mechanical Ventilator 70 20 21:00 87/48 20 20:45 92 34 92/52 (65) 98 06/11/20 20:45 34 Mechanical Ventilator 70 06/11/20 20:45 34 92/52 Mechanical Ventilator 70 06/11/20 20:45 92/52 5//20 20:35 38 Mechanical Ventilator 70 20 20:35 38 100/54 Mechanical Ventilator 70 5/20 20:35 100/54 5/2/20 20:30 99 39 100/54 (69) 97 /2/20 20:15 96 35 124/66 (85) 96 5/2/20 20:00 70 5/2/20 20:00 96 //20 20:00 100.2 93 34 129/64 (85) 100 06/12/19 19:46 84 29 70 06/12/19 19:45 84 25 130/62 (84) 100 06/12/19 19:30 92 31 132/62 (85) 100 06/12/19 19:15 82 25 132/62 (85) 100 06/12/19 19:00 78 26 111/58 (75) 100 06/12/19 18:48 77/52 06/12/19 18:45 87 23 77/52 (60) 100 06/12/19 18:30 87 23 77/52 (60) 100 06/12/19 18:15 80 26 96/51 (66) 100 06/12/19 18:00 25 Mechanical Ventilator 100 06/12/19 18:00 28 72/51 Mechanical Ventilator 85 06/12/19 18:00 72/51 06/12/19 18:00 80 27 93/50 (64) 100 06/12/19 17:45 86 34 85/46 (59) 100 06/12/19 17:30 78 26 85 06/12/19 17:30 84 27 102/61 (75) 100 06/12/19 17:00 78 26 92/56 (68) 100 06/12/19 17:00 28 Mechanical Ventilator 100 06/12/19 17:00 29 92/56 Mechanical Ventilator 100 06/12/19 17:00 92/56 06/12/19 16:45 79 26 89/54 (66) 100 06/12/19 16:30 79 27 87/50 (62) 100 06/12/19 16:15 80 26 86/49 (61) 100 06/12/19 16:00 100 06/12/19 16:00 81 06/12/19 16:00 99.2 81 26 71/48 (56) 100 06/12/19 16:00 28 Mechanical Ventilator 100 06/12/19 16:00 29 71/48 Mechanical Ventilator 100 06/12/19 16:00 71/48 06/12/19 15:45 82 26 70/44 (53) 100 06/12/19 15:30 82 26 70/42 (51) 100 06/12/19 15:16 107 34 100 06/12/19 15:15 90 26 72/44 (53) 100 06/12/19 15:00 52 Mechanical Ventilator 100 5/2/20 15:00 49 70/52 Mechanical Ventilator 100 06/12/19 15:00 70/52 06/12/19 15:00 102 30 105/70 (82) 100 06/12/19 14:45 104 32 136/80 (98) 100 06/12/19 14:30 102 55 131/86 (101) 100 06/12/19 14:15 97 31 119/69 (86) 100 06/12/19 14:00 36 Mechanical Ventilator 100 06/12/19 14:00 52 72/54 Mechanical Ventilator 100 06/12/19 14:00 92/56 06/12/19 14:00 98 54 99/66 (77) 100 06/12/19 13:58 99.6 06/12/19 13:45 103 38 97/65 (76) 100 06/12/19 13:30 109 47 82/60 (67) 100 06/12/19 13:28 36 Mechanical Ventilator 100 06/12/19 13:27 72/54 06/12/19 13:20 111 33 100 06/12/19 13:15 112 46 83/62 (69) 100 06/12/19 13:00 72/54 06/12/19 13:00 111 41 82/60 (67) 100 06/12/19 12:30 104 32 97/60 (72) 100 06/12/19 12:15 97 29 95/78 (84) 100 06/12/19 12:00 100 06/12/19 12:00 103 34 79/50 (60) 100 06/12/19 12:00 72/52 06/12/19 12:00 99 06/12/19 12:00 99.8 97 27 90/64 (73) 100 06/12/19 11:45 107 47 90/63 (72) 100 06/12/19 11:30 107 30 74/55 (61) 100 06/12/19 11:15 106 40 80/59 (66) 100 Intake and Output 06/13/19 06/14/19 19:00 07:00 Intake Total 1499.6050 ml 1227.10 ml Output Total 30 ml 20 ml Balance 1469.6050 ml 1207.10 ml IV Total 1459.6050 ml 1202.10 ml Tube Feeding 40 ml 25 ml Output Urine Total 30 ml 20 ml Labs Test 06/11/19 19:14 06/12/19 01:30 06/12/19 04:50 06/12/19 07:50 Arterial Blood pH 7.521 (7.350-7.450) 7.358 (7.350-7.450) 7.293 (7.350-7.450) Arterial Blood Partial Pressure CO2 18.8 mmHg (35.0-45.0) 28.0 mmHg (35.0-45.0) 41.1 mmHg (35.0-45.0) Arterial Blood Partial Pressure O2 82.6 mmHg (75.0-100.0) 58.1 mmHg (75.0-100.0) 103.1 mmHg (75.0-100.0) Arterial Blood HCO3 15.0 mmol/L (22.0-26.0) 15.4 mmol/L (22.0-26.0) 19.5 mmol/L (22.0-26.0) Arterial Blood Oxygen Saturation 97.1 % (95-100) 86.8 % (95-100) 96.4 % (95-100) Arterial Blood Base Excess -6.0 (-2-2) -8.8 (-2-2) -6.6 (-2-2) Kosta Test Positive Positive Positive White Blood Count 29.7 K/UL (4.8-10.8) Red Blood Count 3.04 M/UL (4.70-6.10) Hemoglobin 9.4 G/DL (14.2-18.0) Hematocrit 27.4 % (42.0-52.0) Mean Corpuscular Volume 90 FL (80-99) Mean Corpuscular Hemoglobin 30.7 PG (27.0-31.0) Mean Corpuscular Hemoglobin Concent 34.2 G/DL (32.0-36.0) Red Cell Distribution Width 15.5 % (11.6-14.8) Platelet Count 141 K/UL (150-450) Mean Platelet Volume 6.8 FL (6.5-10.1) Neutrophils (%) (Auto) % (45.0-75.0) Lymphocytes (%) (Auto) % (20.0-45.0) Monocytes (%) (Auto) % (1.0-10.0) Eosinophils (%) (Auto) % (0.0-3.0) Basophils (%) (Auto) % (0.0-2.0) Differential Total Cells Counted 100 Neutrophils % (Manual) 92 % (45-75) Lymphocytes % (Manual) 4 % (20-45) Monocytes % (Manual) 4 % (1-10) Eosinophils % (Manual) 0 % (0-3) Basophils % (Manual) 0 % (0-2) Metamyelocytes % 2 % (0-0) Myelocytes % 2 % (0-0) Band Neutrophils 0 % (0-8) Platelet Estimate Decreased Platelet Morphology Normal Anisocytosis 1+ Sodium Level 142 MMOL/L (136-145) Potassium Level 3.5 MMOL/L (3.5-5.1) Chloride Level 95 MMOL/L (98-107) Carbon Dioxide Level 23 MMOL/L (21-32) Anion Gap 24 mmol/L (5-15) Blood Urea Nitrogen 81 mg/dL (7-18) Creatinine 10.6 MG/DL (0.55-1.30) Estimat Glomerular Filtration Rate 4.9 mL/min (>60) Glucose Level 216 MG/DL (74-106) Calcium Level 8.8 MG/DL (8.5-10.1) Phosphorus Level 7.8 MG/DL (2.5-4.9) Total Bilirubin 0.3 MG/DL (0.2-1.0) Direct Bilirubin 0.1 MG/DL (0.0-0.3) Aspartate Amino Transf (AST/SGOT) 25 U/L (15-37) Alanine Aminotransferase (ALT/SGPT) 9 U/L (12-78) Alkaline Phosphatase 125 U/L (46-116) Total Protein 8.0 G/DL (6.4-8.2) Albumin 1.9 G/DL (3.4-5.0) Triglycerides Level 142 MG/DL (30-150) Test 06/13/19 05:35 06/13/19 07:30 06/14/19 05:30 White Blood Count 19.9 K/UL (4.8-10.8) 23.2 K/UL (4.8-10.8) Red Blood Count 2.68 M/UL (4.70-6.10) 2.85 M/UL (4.70-6.10) Hemoglobin 8.3 G/DL (14.2-18.0) 8.7 G/DL (14.2-18.0) Hematocrit 24.5 % (42.0-52.0) 26.0 % (42.0-52.0) Mean Corpuscular Volume 91 FL (80-99) 92 FL (80-99) Mean Corpuscular Hemoglobin 31.1 PG (27.0-31.0) 30.5 PG (27.0-31.0) Mean Corpuscular Hemoglobin Concent 34.0 G/DL (32.0-36.0) 33.4 G/DL (32.0-36.0) Red Cell Distribution Width 14.8 % (11.6-14.8) 16.0 % (11.6-14.8) Platelet Count 106 K/UL (150-450) 122 K/UL (150-450) Mean Platelet Volume 7.2 FL (6.5-10.1) 7.3 FL (6.5-10.1) Neutrophils (%) (Auto) % (45.0-75.0) % (45.0-75.0) Lymphocytes (%) (Auto) % (20.0-45.0) % (20.0-45.0) Monocytes (%) (Auto) % (1.0-10.0) % (1.0-10.0) Eosinophils (%) (Auto) % (0.0-3.0) % (0.0-3.0) Basophils (%) (Auto) % (0.0-2.0) % (0.0-2.0) Differential Total Cells Counted 100 100 Neutrophils % (Manual) 84 % (45-75) 80 % (45-75) Lymphocytes % (Manual) 9 % (20-45) 8 % (20-45) Monocytes % (Manual) 6 % (1-10) 11 % (1-10) Eosinophils % (Manual) 0 % (0-3) 1 % (0-3) Basophils % (Manual) 1 % (0-2) 0 % (0-2) Band Neutrophils 0 % (0-8) 0 % (0-8) Platelet Estimate Decreased Decreased Platelet Morphology Normal Normal Hypochromasia 1+ Sodium Level 134 MMOL/L (136-145) 128 MMOL/L (136-145) Potassium Level 4.9 MMOL/L (3.5-5.1) 5.0 MMOL/L (3.5-5.1) Chloride Level 92 MMOL/L (98-107) 87 MMOL/L (98-107) Carbon Dioxide Level 23 MMOL/L (21-32) 21 MMOL/L (21-32) Anion Gap 19 mmol/L (5-15) 20 mmol/L (5-15) Blood Urea Nitrogen 81 mg/dL (7-18) 96 mg/dL (7-18) Creatinine 10.7 MG/DL (0.55-1.30) 11.6 MG/DL (0.55-1.30) Estimat Glomerular Filtration Rate 4.9 mL/min (>60) 4.4 mL/min (>60) Glucose Level 379 MG/DL (74-106) 275 MG/DL (74-106) Uric Acid 8.0 MG/DL (2.6-7.2) 8.1 MG/DL (2.6-7.2) Calcium Level 7.8 MG/DL (8.5-10.1) 8.4 MG/DL (8.5-10.1) Phosphorus Level 7.3 MG/DL (2.5-4.9) 8.3 MG/DL (2.5-4.9) Magnesium Level 2.3 MG/DL (1.8-2.4) 2.2 MG/DL (1.8-2.4) Total Bilirubin 0.3 MG/DL (0.2-1.0) 0.4 MG/DL (0.2-1.0) Gamma Glutamyl Transpeptidase 10 U/L (5-85) Aspartate Amino Transf (AST/SGOT) 77 U/L (15-37) 91 U/L (15-37) Alanine Aminotransferase (ALT/SGPT) 26 U/L (12-78) 44 U/L (12-78) Alkaline Phosphatase 100 U/L (46-116) 88 U/L (46-116) Lactate Dehydrogenase 508 U/L (81-234) Total Creatine Kinase 490 U/L (26-308) Troponin I 0.076 ng/mL (0.000-0.056) C-Reactive Protein, Quantitative 28.9 mg/dL (0.00-0.90) 25.2 mg/dL (0.00-0.90) Pro-B-Type Natriuretic Peptide 00863 pg/mL (0-125) 37719 pg/mL (0-125) Total Protein 7.4 G/DL (6.4-8.2) 7.7 G/DL (6.4-8.2) Albumin 2.0 G/DL (3.4-5.0) 2.2 G/DL (3.4-5.0) Globulin 5.4 g/dL 5.5 g/dL Albumin/Globulin Ratio 0.4 (1.0-2.7) 0.4 (1.0-2.7) Arterial Blood pH 7.291 (7.350-7.450) Arterial Blood Partial Pressure CO2 44.4 mmHg (35.0-45.0) Arterial Blood Partial Pressure O2 87.3 mmHg (75.0-100.0) Arterial Blood HCO3 20.9 mmol/L (22.0-26.0) Arterial Blood Oxygen Saturation 95.1 % (95-100) Arterial Blood Base Excess -5.4 (-2-2) Kosta Test Positive Nucleated Red Blood Cells 1 /100 WBC Prothrombin Time 13.2 SEC (9.30-11.50) Prothromb Time International Ratio 1.3 (0.9-1.1) Activated Partial Thromboplast Time 33 SEC (23-33) Height (Feet): 6 Height (Inches): 1.00 Weight (Pounds): 189 Objective Sp02 EP Interpretation: reviewed, normal General: confused, agitated+ Head: normocephalic, atraumatic Heent: bilateral eye normal inspection, bilateral eye PERRL Respiratory: normal breath sounds, no respiratory distress,intubated+++ Cardiovascular: regular rate, rhythm, no edema Gastrointestinal: normal inspection, soft, non-distended Rectal: deferred Musculoskeletal: normal range of motion, non-tender Neurologic: alert, motor strength/tone normal, sensory intact, responsive, speech normal Skin: Decubitus/Ulcer - See RN skin exam. : jamaal+ Greg Cabral MD June 14, 2019 11:17
--- NOTE | 2019-06-14 11:31 | Infectious Diseases Prog Note ---
Assessment/Plan Assessment/Plan IMPRESSION: 1. COVID19 pneumonia Positive: 05/27, 05/31 , 06/05, 06/09 2. MRSA carrier. 3. Chronic kidney disease , end-stage renal disease. 4. COPD. 5. Hypertension. 6. Anemia. 7. Hypothyroidism. 8. Hyperlipidemia. 9. Major depression. 10. Leukocytosis 11. Hypotension 12. Hepatitis C 13. Hyperuricemia 14. Diarrhea 15. septic shock RECOMMENDATIONS: Continue Vancomycin & Zosyn Poor prognosis Finished hydroxychloroquine. Will f/u COVID19 test Subjective ROS Limited/Unobtainable: Yes Constitutional: Reports: fever Cardiovascular: Reports: other - on pressor Neurologic: Reports: other - on restraint Allergies: Coded Allergies: No Known Allergies (Unverified , 05/28/19) Objective Vital Signs Last 24 Hour Vital Signs Date Time Temp Pulse Resp B/P (MAP) Pulse Ox O2 Delivery O2 Flow Rate FiO2 06/14/19 10:37 77 27 60 06/14/19 09:05 118/63 06/14/19 08:00 72 06/14/19 08:00 60 06/14/19 07:17 72 26 60 06/14/19 07:00 99.0 72 25 122/63 (82) 94 06/14/19 06:50 121/61 06/14/19 06:50 26 Mechanical Ventilator 60 06/14/19 06:30 72 29 126/68 (87) 96 06/14/19 06:00 70 27 125/68 (87) 99 06/14/19 06:00 125/68 06/14/19 06:00 26 Mechanical Ventilator 70 06/14/19 05:48 99.8 06/14/19 05:34 71 28 60 06/14/19 05:30 70 24 110/59 (76) 98 06/14/19 05:00 77 22 93/59 (70) 95 06/14/19 05:00 93/59 06/14/19 05:00 26 Mechanical Ventilator 70 06/14/19 04:30 99.8 103 23 108/62 (77) 95 06/14/19 04:07 28 Mechanical Ventilator 100 06/14/19 04:00 70 06/14/19 04:00 70 29 126/66 (86) 96 06/14/19 04:00 70 06/14/19 03:30 66 29 141/70 (93) 98 06/14/19 03:22 65 28 60 06/14/19 03:00 63 31 160/74 (102) 99 06/14/19 03:00 160/72 06/14/19 03:00 26 Mechanical Ventilator 70 06/14/19 02:30 65 25 112/61 (78) 100 06/14/19 02:00 106/59 06/14/19 02:00 26 Mechanical Ventilator 70 06/14/19 02:00 67 26 106/59 (75) 100 06/14/19 01:45 100/54 06/14/19 01:30 69 26 97/56 (70) 99 06/14/19 01:30 97/56 06/14/19 01:29 69 26 80 06/14/19 01:00 66 31 109/60 (76) 99 06/14/19 01:00 109/60 06/14/19 01:00 28 Mechanical Ventilator 70 06/14/19 00:30 65 27 114/64 (81) 99 06/14/19 00:30 114/64 06/14/19 00:15 122/68 06/14/19 00:00 126/70 06/14/19 00:00 26 Mechanical Ventilator 70 06/14/19 00:00 97.4 62 28 126/70 (88) 98 06/13/19 23:45 130/70 06/13/19 23:37 59 26 80 06/13/19 23:30 62 32 138/71 (93) 98 06/13/19 23:00 98.6 65 28 132/67 (88) 99 06/13/19 23:00 26 Mechanical Ventilator 70 06/13/19 22:43 117/62 06/13/19 22:30 67 31 119/64 (82) 98 06/13/19 22:00 115/61 06/13/19 22:00 26 Mechanical Ventilator 70 06/13/19 22:00 68 26 115/61 (79) 97 06/13/19 21:45 68 26 112/61 (78) 97 06/13/19 21:45 112/61 06/13/19 21:39 67 29 80 06/13/19 21:30 112/60 06/13/19 21:30 67 26 112/60 (77) 97 5/3/20 21:15 67 26 117/62 (80) 98 520 21:15 117/62 520 21:00 113/64 520 21:00 28 Mechanical Ventilator 70 20 21:00 66 26 113/64 (80) 98 06/12/20 20:45 66 26 129/66 (87) 99 06/12/20 20:45 117/62 520 20:30 65 26 133/69 (90) 98 20 20:15 64 26 140/75 (96) 100 06/13/19 20:00 97.8 64 28 136/71 (92) 99 06/13/19 20:00 26 Mechanical Ventilator 80 06/13/19 20:00 80 06/13/19 20:00 62 06/13/19 19:54 66 29 80 06/13/19 19:45 67 30 132/70 (90) 99 20 19:30 68 28 130/65 (86) 100 06/13/19 19:15 71 26 116/62 (80) 98 06/13/19 19:00 116/62 06/13/19 19:00 26 Mechanical Ventilator 80 06/13/19 19:00 94 24 95/57 (70) 99 06/13/19 18:45 80 26 106/58 (74) 94 06/13/19 18:30 75 27 117/67 (84) 98 20 18:15 75 26 120/65 (83) 98 20 18:00 77 26 120/68 (85) 99 20 18:00 120/65 06/13/19 18:00 26 Mechanical Ventilator 80 06/13/19 17:45 77 29 122/72 (89) 99 20 17:30 79 26 116/68 (84) 99 20 17:15 79 27 102/66 (78) 99 20 17:00 80 25 100/60 (73) 98 20 17:00 100/60 520 17:00 26 Mechanical Ventilator 80 06/13/19 16:45 85 26 94/54 (67) 97 06/13/19 16:41 87 26 80 20 16:30 90 26 90/51 (64) 86 5/3/20 16:15 73 26 103/55 (71) 97 06/13/19 16:00 74 06/13/19 16:00 80 06/13/19 16:00 71 27 106/59 (75) 97 06/13/19 16:00 103/55 06/13/19 16:00 26 Mechanical Ventilator 80 06/13/19 15:45 74 26 114/60 (78) 97 06/13/19 15:30 72 26 121/65 (83) 98 06/13/19 15:15 73 27 122/66 (84) 99 06/13/19 15:15 121/65 06/13/19 15:00 96.9 78 26 110/61 (77) 97 06/13/19 15:00 122/66 06/13/19 15:00 26 Mechanical Ventilator 80 06/13/19 14:54 84 31 60 06/13/19 14:45 77 26 107/58 (74) 97 06/13/19 14:30 76 21 106/61 (76) 96 06/13/19 14:15 79 21 110/67 (81) 96 06/13/19 14:00 79 26 111/61 (78) 96 06/13/19 14:00 110/67 06/13/19 14:00 26 Mechanical Ventilator 80 06/13/19 13:45 67 26 100/72 (81) 93 06/13/19 13:30 79 25 135/69 (91) 93 06/13/19 13:15 69 26 144/68 (93) 96 06/13/19 13:15 135/69 06/13/19 13:00 73 24 153/69 (97) 95 06/13/19 13:00 144/68 06/13/19 13:00 26 Mechanical Ventilator 80 06/13/19 12:56 71 19 116/56 (76) 94 06/13/19 12:45 80 26 177/67 (103) 95 06/13/19 12:39 26 Mechanical Ventilator 100 06/13/19 12:30 75 26 136/61 (86) 95 06/13/19 12:30 26 Mechanical Ventilator 80 06/13/19 12:30 26 139/61 Mechanical Ventilator 80 06/13/19 12:30 75 26 60 06/13/19 12:00 79 06/13/19 12:00 75 26 108/58 (75) 92 06/13/19 12:00 139/61 06/13/19 12:00 26 Mechanical Ventilator 70 06/13/19 12:00 26 Mechanical Ventilator 70 06/13/19 12:00 26 139/61 Mechanical Ventilator 70 06/13/19 12:00 139/61 06/13/19 12:00 99.2 108/58 (75) 06/13/19 12:00 80 06/13/19 11:47 125/60 06/13/19 11:46 99.5 06/13/19 11:30 77 26 128/61 (83) 94 Height (Feet): 6 Height (Inches): 1.00 Weight (Pounds): 189 HEENT: other - orally intubted Respiratory/Chest: other - on ventilator Cardiovascular: normal rate Abdomen: soft, non tender, other - NG tube Extremities: no edema Neurologic/Psychiatric: unresponsiveness Laboratory Tests Test 06/14/19 05:30 White Blood Count 23.2 K/UL (4.8-10.8) *H Red Blood Count 2.85 M/UL (4.70-6.10) L Hemoglobin 8.7 G/DL (14.2-18.0) L Hematocrit 26.0 % (42.0-52.0) L Mean Corpuscular Volume 92 FL (80-99) Mean Corpuscular Hemoglobin 30.5 PG (27.0-31.0) Mean Corpuscular Hemoglobin Concent 33.4 G/DL (32.0-36.0) Red Cell Distribution Width 16.0 % (11.6-14.8) H Platelet Count 122 K/UL (150-450) L Mean Platelet Volume 7.3 FL (6.5-10.1) Neutrophils (%) (Auto) % (45.0-75.0) Lymphocytes (%) (Auto) % (20.0-45.0) Monocytes (%) (Auto) % (1.0-10.0) Eosinophils (%) (Auto) % (0.0-3.0) Basophils (%) (Auto) % (0.0-2.0) Differential Total Cells Counted 100 Neutrophils % (Manual) 80 % (45-75) H Lymphocytes % (Manual) 8 % (20-45) L Monocytes % (Manual) 11 % (1-10) H Eosinophils % (Manual) 1 % (0-3) Basophils % (Manual) 0 % (0-2) Band Neutrophils 0 % (0-8) Nucleated Red Blood Cells 1 /100 WBC Platelet Estimate Decreased L Platelet Morphology Normal Prothrombin Time 13.2 SEC (9.30-11.50) H Prothromb Time International Ratio 1.3 (0.9-1.1) H Activated Partial Thromboplast Time 33 SEC (23-33) Sodium Level 128 MMOL/L (136-145) L Potassium Level 5.0 MMOL/L (3.5-5.1) Chloride Level 87 MMOL/L (98-107) L Carbon Dioxide Level 21 MMOL/L (21-32) Anion Gap 20 mmol/L (5-15) H Blood Urea Nitrogen 96 mg/dL (7-18) H Creatinine 11.6 MG/DL (0.55-1.30) H Estimat Glomerular Filtration Rate 4.4 mL/min (>60) Glucose Level 275 MG/DL (74-106) #H Uric Acid 8.1 MG/DL (2.6-7.2) H Calcium Level 8.4 MG/DL (8.5-10.1) L Phosphorus Level 8.3 MG/DL (2.5-4.9) H Magnesium Level 2.2 MG/DL (1.8-2.4) Total Bilirubin 0.4 MG/DL (0.2-1.0) Aspartate Amino Transf (AST/SGOT) 91 U/L (15-37) H Alanine Aminotransferase (ALT/SGPT) 44 U/L (12-78) Alkaline Phosphatase 88 U/L (46-116) C-Reactive Protein, Quantitative 25.2 mg/dL (0.00-0.90) H Pro-B-Type Natriuretic Peptide 76251 pg/mL (0-125) H Total Protein 7.7 G/DL (6.4-8.2) Albumin 2.2 G/DL (3.4-5.0) L Globulin 5.5 g/dL Albumin/Globulin Ratio 0.4 (1.0-2.7) L Current Medications Medications (Trade) Dose Ordered Sig/Anthony Route PRN Reason Start Time Stop Time Status Last Admin Dose Admin Acetaminophen (Tylenol) 650 mg Q4H PRN NG Temp >100.5 06/13/19 11:00 07/13/19 10:59 06/13/19 11:46 Albuterol Sulfate (Proventil MDI) 2 puff Q4HRT INH 06/06/19 23:00 08/30/19 18:59 06/11/19 09:15 Allopurinol (allopurinoL) 300 mg DAILY NG 06/08/19 09:30 07/08/19 09:29 06/14/19 09:03 Chlorhexidine Gluconate (Michelle-Hex 2%) 1 applic DAILY@2000 TOPIC 06/07/19 20:00 09/05/19 19:59 06/13/19 20:37 Divalproex Sodium (Depakote Sprinkles) 250 mg EVERY 12 HOURS ORAL 06/12/19 21:00 07/12/19 08:59 06/14/19 09:01 Docusate Sodium (Colace) 100 mg THREE TIMES A DAY NG 06/07/19 13:00 07/07/19 12:59 06/14/19 09:01 Dopamine HCl/ Dextrose 250 ml @ 0 mls/hr Q24H PRN IV For hypotension 06/13/19 08:15 09/11/19 08:14 Enoxaparin Sodium (Lovenox) 30 mg DAILY SUBQ 06/07/19 09:00 08/27/19 08:59 06/14/19 09:02 Epoetin Aftab (Epoetin Aftab(ESRD on dialysis)) 10,000 unit FRI-FRI-FRI SUBQ 06/07/19 21:00 08/31/19 20:59 06/11/19 20:45 Fentanyl Citrate 2500 mcg/Sodium Chloride 250 ml @ 0 mls/hr Q24H IV 06/13/19 07:00 06/20/19 06:59 06/14/19 04:07 Hydralazine HCl (Apresoline) 10 mg Q4H PRN IV Blood pressure over 160 systol 06/07/19 10:15 09/05/19 10:14 Midodrine (Pro-Amatine) 10 mg THREE TIMES A DAY NG 06/09/19 13:00 09/07/19 12:59 06/14/19 09:01 Norepinephrine Bitartrate 16 mg/ Dextrose 566 ml @ 0 mls/hr Q24H IV 06/13/19 09:45 07/13/19 09:44 06/14/19 09:05 Pantoprazole (Protonix) 40 mg Q12HR IVP 06/07/19 21:00 07/07/19 08:59 06/14/19 09:01 Piperacillin Sod/ Tazobactam Sod 2.25 gm/Dextrose 55 ml @ 110 mls/hr Q8HR IVPB 06/13/19 14:00 06/18/19 13:59 06/14/19 05:56 Salmeterol Xinafoate/ Fluticasone (Advair 100/50 Diskus) 1 puffs BID INH 06/07/19 09:00 08/27/19 08:59 06/11/19 09:14 Sevelamer Carbonate (Renvela) 1,600 mg Q6HR NG 06/14/19 12:00 09/05/19 12:59 Vancomycin HCl (Vanco rx to dose) 1 ea DAILY PRN MISC Per rx protocol 06/13/19 11:45 07/13/19 11:44 Vasopressin 100 units/Sodium Chloride 100 ml @ 0 mls/hr Q24H IV 06/12/19 11:00 07/12/19 10:59 06/14/19 09:03 Ted Leyva MD June 14, 2019 11:31
--- NOTE | 2019-06-14 13:25 | Diagnostic Imaging Report ---
Indication: Post line placement Technique: One view of the chest Comparison: 6 hours earlier Findings: Interim placement of a left subclavian central venous catheter, tip of which projects at the level of the mid superior vena cava. Interim development of a pneumomediastinum or pneumopericardium, outlining the cardiac apex. No pneumothorax. Bilateral diffuse interstitial and airspace infiltrates are unchanged. Stable somewhat high position of orogastric tube. Stable satisfactory position of endotracheal tube Impression: Satisfactory placement left subclavian central venous catheter. No pneumothorax Interim development of pneumomediastinum. Apparently transient, as subsequent radiographs do not demonstrate this. Somewhat high position of orogastric tube. Subsequent abdomen radiograph of 06/14/2019 demonstrates that this has been corrected Unchanged bilateral infiltrates
--- NOTE | 2019-06-14 13:58 | Cardiac Electrophysiology PN ---
Assessment/Plan Assessment/Plan 1. Elevated troponin. Troponin on May 27 and May 30 were negative; however , on June 01, it was elevated at 0.074. Repeat 0.05. No chest pain. Due to renal failure. On Aspirin. QT 493. Plaquenil DCed. Echo EF 60% 2. Septic shock. Maxed out on Levo 3. End-stage renal disease, on hemodialysis per Dr. Cole. 4. Respiratory failure due to COVID-19 positive pneumonia. On the Vent with60% fio2. Fu by Dr. Ted Leyva and Dr. Mckeon. 5. MRSA carrier. 6. COPD. 7. Anemia. 8. Depression. DW RN Subjective Subjective In Covid isolation in ICU, intubated on 60% Fio2. In SR. S/P 2 units of PRBC and HD . Maxed out on Levphed Objective Last 24 Hour Vital Signs Date Time Temp Pulse Resp B/P (MAP) Pulse Ox O2 Delivery O2 Flow Rate FiO2 06/14/19 12:00 89 06/14/19 12:00 60 06/14/19 11:30 89 26 82/47 (59) 92 06/14/19 11:00 76 31 96/56 (69) 98 06/14/19 10:37 77 27 60 06/14/19 10:30 77 32 99/58 (72) 98 06/14/19 10:00 79 28 87/51 (63) 98 06/14/19 09:30 79 19 95/72 (80) 95 06/14/19 09:05 118/63 06/14/19 09:00 85 26 118/63 (81) 93 06/14/19 08:30 72 26 120/64 (82) 94 06/14/19 08:00 72 06/14/19 08:00 60 06/14/19 08:00 99.1 71 26 120/61 (80) 94 06/14/19 07:30 72 26 115/64 (81) 94 06/14/19 07:17 72 26 60 06/14/19 07:00 99.0 72 25 122/63 (82) 94 06/14/19 06:50 121/61 06/14/19 06:50 26 Mechanical Ventilator 60 06/14/19 06:30 72 29 126/68 (87) 96 06/14/19 06:00 70 27 125/68 (87) 99 06/14/19 06:00 125/68 06/14/19 06:00 26 Mechanical Ventilator 70 06/14/19 05:48 99.8 06/14/19 05:34 71 28 60 06/14/19 05:30 70 24 110/59 (76) 98 06/14/19 05:00 77 22 93/59 (70) 95 06/14/19 05:00 93/59 06/14/19 05:00 26 Mechanical Ventilator 70 06/14/19 04:30 99.8 103 23 108/62 (77) 95 06/14/19 04:07 28 Mechanical Ventilator 100 06/14/19 04:00 70 06/14/19 04:00 70 29 126/66 (86) 96 06/14/19 04:00 70 06/14/19 03:30 66 29 141/70 (93) 98 06/14/19 03:22 65 28 60 06/14/19 03:00 63 31 160/74 (102) 99 06/14/19 03:00 160/72 06/14/19 03:00 26 Mechanical Ventilator 70 06/14/19 02:30 65 25 112/61 (78) 100 06/14/19 02:00 106/59 06/14/19 02:00 26 Mechanical Ventilator 70 06/14/19 02:00 67 26 106/59 (75) 100 06/14/19 01:45 100/54 06/14/19 01:30 69 26 97/56 (70) 99 06/14/19 01:30 97/56 06/14/19 01:29 69 26 80 06/14/19 01:00 66 31 109/60 (76) 99 06/14/19 01:00 109/60 06/14/19 01:00 28 Mechanical Ventilator 70 06/14/19 00:30 65 27 114/64 (81) 99 06/14/19 00:30 114/64 06/14/19 00:15 122/68 06/14/19 00:00 126/70 06/14/19 00:00 26 Mechanical Ventilator 70 06/14/19 00:00 97.4 62 28 126/70 (88) 98 06/13/19 23:45 130/70 06/13/19 23:37 59 26 80 5/3/20 23:30 62 32 138/71 (93) 98 5//20 23:00 98.6 65 28 132/67 (88) 99 520 23:00 26 Mechanical Ventilator 70 20 22:43 117/62 5//20 22:30 67 31 119/64 (82) 98 //20 22:00 115/61 5//20 22:00 26 Mechanical Ventilator 70 20 22:00 68 26 115/61 (79) 97 06/12/20 21:45 68 26 112/61 (78) 97 06/12/20 21:45 112/61 5/20 21:39 67 29 80 520 21:30 112/60 520 21:30 67 26 112/60 (77) 97 06/12/20 21:15 67 26 117/62 (80) 98 //20 21:15 117/62 520 21:00 113/64 20 21:00 28 Mechanical Ventilator 70 20 21:00 66 26 113/64 (80) 98 06/12/20 20:45 66 26 129/66 (87) 99 06/12/20 20:45 117/62 5//20 20:30 65 26 133/69 (90) 98 06/12/20 20:15 64 26 140/75 (96) 100 /20 20:00 97.8 64 28 136/71 (92) 99 20 20:00 26 Mechanical Ventilator 80 20 20:00 80 5//20 20:00 62 5//20 19:54 66 29 80 5//20 19:45 67 30 132/70 (90) 99 5//20 19:30 68 28 130/65 (86) 100 5//20 19:15 71 26 116/62 (80) 98 06/12/20 19:00 116/62 5//20 19:00 26 Mechanical Ventilator 80 20 19:00 94 24 95/57 (70) 99 5//20 18:45 80 26 106/58 (74) 94 5//20 18:30 75 27 117/67 (84) 98 5//20 18:15 75 26 120/65 (83) 98 06/13/19 18:00 77 26 120/68 (85) 99 06/13/19 18:00 120/65 06/13/19 18:00 26 Mechanical Ventilator 80 06/13/19 17:45 77 29 122/72 (89) 99 06/13/19 17:30 79 26 116/68 (84) 99 06/13/19 17:15 79 27 102/66 (78) 99 06/13/19 17:00 80 25 100/60 (73) 98 06/13/19 17:00 100/60 06/13/19 17:00 26 Mechanical Ventilator 80 06/13/19 16:45 85 26 94/54 (67) 97 06/13/19 16:41 87 26 80 06/13/19 16:30 90 26 90/51 (64) 86 06/13/19 16:15 73 26 103/55 (71) 97 06/13/19 16:00 74 06/13/19 16:00 80 06/13/19 16:00 71 27 106/59 (75) 97 06/13/19 16:00 103/55 06/13/19 16:00 26 Mechanical Ventilator 80 06/13/19 15:45 74 26 114/60 (78) 97 06/13/19 15:30 72 26 121/65 (83) 98 06/13/19 15:15 73 27 122/66 (84) 99 06/13/19 15:15 121/65 06/13/19 15:00 96.9 78 26 110/61 (77) 97 06/13/19 15:00 122/66 06/13/19 15:00 26 Mechanical Ventilator 80 06/13/19 14:54 84 31 60 06/13/19 14:45 77 26 107/58 (74) 97 06/13/19 14:30 76 21 106/61 (76) 96 06/13/19 14:15 79 21 110/67 (81) 96 06/13/19 14:00 79 26 111/61 (78) 96 06/13/19 14:00 110/67 06/13/19 14:00 26 Mechanical Ventilator 80 Intake and Output 06/13/19 06/14/19 19:00 07:00 Intake Total 1499.6050 ml 1227.10 ml Output Total 30 ml 20 ml Balance 1469.6050 ml 1207.10 ml IV Total 1459.6050 ml 1202.10 ml Tube Feeding 40 ml 25 ml Output Urine Total 30 ml 20 ml Laboratory Tests Test 06/14/19 05:30 White Blood Count 23.2 K/UL (4.8-10.8) *H Red Blood Count 2.85 M/UL (4.70-6.10) L Hemoglobin 8.7 G/DL (14.2-18.0) L Hematocrit 26.0 % (42.0-52.0) L Mean Corpuscular Volume 92 FL (80-99) Mean Corpuscular Hemoglobin 30.5 PG (27.0-31.0) Mean Corpuscular Hemoglobin Concent 33.4 G/DL (32.0-36.0) Red Cell Distribution Width 16.0 % (11.6-14.8) H Platelet Count 122 K/UL (150-450) L Mean Platelet Volume 7.3 FL (6.5-10.1) Neutrophils (%) (Auto) % (45.0-75.0) Lymphocytes (%) (Auto) % (20.0-45.0) Monocytes (%) (Auto) % (1.0-10.0) Eosinophils (%) (Auto) % (0.0-3.0) Basophils (%) (Auto) % (0.0-2.0) Differential Total Cells Counted 100 Neutrophils % (Manual) 80 % (45-75) H Lymphocytes % (Manual) 8 % (20-45) L Monocytes % (Manual) 11 % (1-10) H Eosinophils % (Manual) 1 % (0-3) Basophils % (Manual) 0 % (0-2) Band Neutrophils 0 % (0-8) Nucleated Red Blood Cells 1 /100 WBC Platelet Estimate Decreased L Platelet Morphology Normal Prothrombin Time 13.2 SEC (9.30-11.50) H Prothromb Time International Ratio 1.3 (0.9-1.1) H Activated Partial Thromboplast Time 33 SEC (23-33) Sodium Level 128 MMOL/L (136-145) L Potassium Level 5.0 MMOL/L (3.5-5.1) Chloride Level 87 MMOL/L (98-107) L Carbon Dioxide Level 21 MMOL/L (21-32) Anion Gap 20 mmol/L (5-15) H Blood Urea Nitrogen 96 mg/dL (7-18) H Creatinine 11.6 MG/DL (0.55-1.30) H Estimat Glomerular Filtration Rate 4.4 mL/min (>60) Glucose Level 275 MG/DL (74-106) #H Uric Acid 8.1 MG/DL (2.6-7.2) H Calcium Level 8.4 MG/DL (8.5-10.1) L Phosphorus Level 8.3 MG/DL (2.5-4.9) H Magnesium Level 2.2 MG/DL (1.8-2.4) Total Bilirubin 0.4 MG/DL (0.2-1.0) Aspartate Amino Transf (AST/SGOT) 91 U/L (15-37) H Alanine Aminotransferase (ALT/SGPT) 44 U/L (12-78) Alkaline Phosphatase 88 U/L (46-116) C-Reactive Protein, Quantitative 25.2 mg/dL (0.00-0.90) H Pro-B-Type Natriuretic Peptide 18208 pg/mL (0-125) H Total Protein 7.7 G/DL (6.4-8.2) Albumin 2.2 G/DL (3.4-5.0) L Globulin 5.5 g/dL Albumin/Globulin Ratio 0.4 (1.0-2.7) L Objective HEAD AND NECK: No JVD.Orally intubated LUNGS: Decreased breath sounds. CARDIOVASCULAR: Regular S1 and S2. Tachycardic. ABDOMEN: Soft. EXTREMITIES: No pitting edema. New Left [facility] Gio Engle MD June 14, 2019 13:58
--- NOTE | 2019-06-14 15:13 | Surgery Progress Note ---
Surgery Progress Note Subjective Procedure Performed right subclavian central venous catheter insertion Additional Comments worsening leuckotyosis sedated ill appearing labs noted anemia line no good needs HD today new line placed Objective Last 24 Hour Vital Signs Date Time Temp Pulse Resp B/P (MAP) Pulse Ox O2 Delivery O2 Flow Rate FiO2 06/14/19 12:00 89 06/14/19 12:00 60 06/14/19 11:30 89 26 82/47 (59) 92 06/14/19 11:00 76 31 96/56 (69) 98 06/14/19 10:37 77 27 60 06/14/19 10:30 77 32 99/58 (72) 98 06/14/19 10:00 79 28 87/51 (63) 98 06/14/19 09:30 79 19 95/72 (80) 95 06/14/19 09:05 118/63 06/14/19 09:00 85 26 118/63 (81) 93 06/14/19 08:30 72 26 120/64 (82) 94 06/14/19 08:00 72 06/14/19 08:00 60 06/14/19 08:00 99.1 71 26 120/61 (80) 94 06/14/19 07:30 72 26 115/64 (81) 94 06/14/19 07:17 72 26 60 06/14/19 07:00 99.0 72 25 122/63 (82) 94 06/14/19 06:50 121/61 06/14/19 06:50 26 Mechanical Ventilator 60 06/14/19 06:30 72 29 126/68 (87) 96 06/14/19 06:00 70 27 125/68 (87) 99 06/14/19 06:00 125/68 06/14/19 06:00 26 Mechanical Ventilator 70 06/14/19 05:48 99.8 06/14/19 05:34 71 28 60 06/14/19 05:30 70 24 110/59 (76) 98 06/14/19 05:00 77 22 93/59 (70) 95 06/14/19 05:00 93/59 06/14/19 05:00 26 Mechanical Ventilator 70 06/14/19 04:30 99.8 103 23 108/62 (77) 95 06/14/19 04:07 28 Mechanical Ventilator 100 06/14/19 04:00 70 06/14/19 04:00 70 29 126/66 (86) 96 06/14/19 04:00 70 06/14/19 03:30 66 29 141/70 (93) 98 06/14/19 03:22 65 28 60 06/14/19 03:00 63 31 160/74 (102) 99 06/14/19 03:00 160/72 06/14/19 03:00 26 Mechanical Ventilator 70 06/14/19 02:30 65 25 112/61 (78) 100 06/14/19 02:00 106/59 06/14/19 02:00 26 Mechanical Ventilator 70 06/14/19 02:00 67 26 106/59 (75) 100 06/14/19 01:45 100/54 06/14/19 01:30 69 26 97/56 (70) 99 06/14/19 01:30 97/56 06/14/19 01:29 69 26 80 06/14/19 01:00 66 31 109/60 (76) 99 06/14/19 01:00 109/60 06/14/19 01:00 28 Mechanical Ventilator 70 06/14/19 00:30 65 27 114/64 (81) 99 06/14/19 00:30 114/64 06/14/19 00:15 122/68 06/14/19 00:00 126/70 06/14/19 00:00 26 Mechanical Ventilator 70 06/14/19 00:00 97.4 62 28 126/70 (88) 98 06/13/19 23:45 130/70 06/13/19 23:37 59 26 80 06/13/19 23:30 62 32 138/71 (93) 98 06/13/19 23:00 98.6 65 28 132/67 (88) 99 06/13/19 23:00 26 Mechanical Ventilator 70 06/13/19 22:43 117/62 06/13/19 22:30 67 31 119/64 (82) 98 06/13/19 22:00 115/61 06/13/19 22:00 26 Mechanical Ventilator 70 06/13/19 22:00 68 26 115/61 (79) 97 06/13/19 21:45 68 26 112/61 (78) 97 06/13/19 21:45 112/61 5/3/20 21:39 67 29 80 5/20 21:30 112/60 5/20 21:30 67 26 112/60 (77) 97 20 21:15 67 26 117/62 (80) 98 06/12/20 21:15 117/62 5/20 21:00 113/64 520 21:00 28 Mechanical Ventilator 70 06/13/19 21:00 66 26 113/64 (80) 98 20 20:45 66 26 129/66 (87) 99 20 20:45 117/62 520 20:30 65 26 133/69 (90) 98 20 20:15 64 26 140/75 (96) 100 06/13/19 20:00 97.8 64 28 136/71 (92) 99 20 20:00 26 Mechanical Ventilator 80 06/13/19 20:00 80 06/13/19 20:00 62 06/13/19 19:54 66 29 80 06/13/19 19:45 67 30 132/70 (90) 99 06/13/19 19:30 68 28 130/65 (86) 100 06/13/19 19:15 71 26 116/62 (80) 98 06/13/19 19:00 116/62 06/13/19 19:00 26 Mechanical Ventilator 80 06/13/19 19:00 94 24 95/57 (70) 99 06/13/19 18:45 80 26 106/58 (74) 94 20 18:30 75 27 117/67 (84) 98 20 18:15 75 26 120/65 (83) 98 20 18:00 77 26 120/68 (85) 99 20 18:00 120/65 20 18:00 26 Mechanical Ventilator 80 06/13/19 17:45 77 29 122/72 (89) 99 20 17:30 79 26 116/68 (84) 99 06/12/20 17:15 79 27 102/66 (78) 99 06/12/20 17:00 80 25 100/60 (73) 98 20 17:00 100/60 06/13/19 17:00 26 Mechanical Ventilator 80 06/13/19 16:45 85 26 94/54 (67) 97 06/13/19 16:41 87 26 80 06/13/19 16:30 90 26 90/51 (64) 86 06/13/19 16:15 73 26 103/55 (71) 97 06/13/19 16:00 74 06/13/19 16:00 80 06/13/19 16:00 71 27 106/59 (75) 97 06/13/19 16:00 103/55 06/13/19 16:00 26 Mechanical Ventilator 80 06/13/19 15:45 74 26 114/60 (78) 97 06/13/19 15:30 72 26 121/65 (83) 98 06/13/19 15:15 73 27 122/66 (84) 99 06/13/19 15:15 121/65 I&O Intake and Output 06/13/19 06/14/19 19:00 07:00 Intake Total 1499.6050 ml 1310.77 ml Output Total 30 ml 20 ml Balance 1469.6050 ml 1290.77 ml IV Total 1459.6050 ml 1285.77 ml Tube Feeding 40 ml 25 ml Output Urine Total 30 ml 20 ml Dressing: other Wound: other Drains: other Cardiovascular: RSR Respiratory: decreased breath sounds Abdomen: soft, non-tender, present bowel sounds Extremities: no cyanosis, other Laboratory Tests Test 06/14/19 05:30 White Blood Count 23.2 K/UL (4.8-10.8) *H Red Blood Count 2.85 M/UL (4.70-6.10) L Hemoglobin 8.7 G/DL (14.2-18.0) L Hematocrit 26.0 % (42.0-52.0) L Mean Corpuscular Volume 92 FL (80-99) Mean Corpuscular Hemoglobin 30.5 PG (27.0-31.0) Mean Corpuscular Hemoglobin Concent 33.4 G/DL (32.0-36.0) Red Cell Distribution Width 16.0 % (11.6-14.8) H Platelet Count 122 K/UL (150-450) L Mean Platelet Volume 7.3 FL (6.5-10.1) Neutrophils (%) (Auto) % (45.0-75.0) Lymphocytes (%) (Auto) % (20.0-45.0) Monocytes (%) (Auto) % (1.0-10.0) Eosinophils (%) (Auto) % (0.0-3.0) Basophils (%) (Auto) % (0.0-2.0) Differential Total Cells Counted 100 Neutrophils % (Manual) 80 % (45-75) H Lymphocytes % (Manual) 8 % (20-45) L Monocytes % (Manual) 11 % (1-10) H Eosinophils % (Manual) 1 % (0-3) Basophils % (Manual) 0 % (0-2) Band Neutrophils 0 % (0-8) Nucleated Red Blood Cells 1 /100 WBC Platelet Estimate Decreased L Platelet Morphology Normal Prothrombin Time 13.2 SEC (9.30-11.50) H Prothromb Time International Ratio 1.3 (0.9-1.1) H Activated Partial Thromboplast Time 33 SEC (23-33) Sodium Level 128 MMOL/L (136-145) L Potassium Level 5.0 MMOL/L (3.5-5.1) Chloride Level 87 MMOL/L (98-107) L Carbon Dioxide Level 21 MMOL/L (21-32) Anion Gap 20 mmol/L (5-15) H Blood Urea Nitrogen 96 mg/dL (7-18) H Creatinine 11.6 MG/DL (0.55-1.30) H Estimat Glomerular Filtration Rate 4.4 mL/min (>60) Glucose Level 275 MG/DL (74-106) #H Uric Acid 8.1 MG/DL (2.6-7.2) H Calcium Level 8.4 MG/DL (8.5-10.1) L Phosphorus Level 8.3 MG/DL (2.5-4.9) H Magnesium Level 2.2 MG/DL (1.8-2.4) Total Bilirubin 0.4 MG/DL (0.2-1.0) Aspartate Amino Transf (AST/SGOT) 91 U/L (15-37) H Alanine Aminotransferase (ALT/SGPT) 44 U/L (12-78) Alkaline Phosphatase 88 U/L (46-116) C-Reactive Protein, Quantitative 25.2 mg/dL (0.00-0.90) H Pro-B-Type Natriuretic Peptide 23522 pg/mL (0-125) H Total Protein 7.7 G/DL (6.4-8.2) Albumin 2.2 G/DL (3.4-5.0) L Globulin 5.5 g/dL Albumin/Globulin Ratio 0.4 (1.0-2.7) L Plan Problems: (1) Suspected COVID-19 virus infection (2) HTN (hypertension) (3) CASSANDRA (acute kidney injury) Assessment & Plan: Needs urgent HD needs access patient okay and consented see note will follow with recs new line placed discussed with team and nephrology HD line functional when checked has TPA now please use appropriately Cathflo used again this flow during dialysis on 430 was low. Will monitor may need line change 5/4 (4) Anemia in chronic kidney disease (CKD) (5) Anemia (6) Renal failure (7) Suspected COVID-19 virus infection (8) COVID-19 Assessment & Plan: COVID + c diff negative febrile leukocytosis renal insufficiency see above cont resp care Rx as per ID worsening on vent support now cxr noted on pressors prognosis guarded Yaniv Mast June 14, 2019 15:13
--- NOTE | 2019-06-14 15:14 | Operative Note - PDOC ---
Operative Note Operative Note Pre-op Diagnosis: COVID + sepsis hypotensive Procedure: left femoral temp HD catheter removal Post-op Diagnosis: same as pre-op Surgeon: dario mast md Specimen: none Complications: none Condition: unstable Estimated Blood Loss: minimal Drains: none Implant(s) used?: No Indications for Procedure malfunctioning left femoral vein temp HD catheter new right side placed left side okay for removal Description of Procedure After satisfactory placement of right femoral temporary hemodialysis catheter and the left femoral nonfunctioning catheter was removed. Dressings were removed while patient was in the supine position. Sutures were cut. The catheter was removed and pressure was held for approximately 8 minutes until hemostasis noted. Dressings applied. Discussed with nursing staff and monitoring. Dario Mast June 14, 2019 15:14
--- NOTE | 2019-06-14 15:16 | Operative Note - PDOC ---
Operative Note Operative Note Pre-op Diagnosis: COVID + sepsis hypotensive Renal insufficiency Procedure: Right femoral temporary hemodialysis catheter insertion Post-op Diagnosis: same as pre-op Surgeon: dario mast md Anesthesia: local Specimen: none Complications: none Condition: unstable Estimated Blood Loss: minimal Drains: none Implant(s) used?: No Indications for Procedure Patient continued renal insufficiency requiring hemodialysis. Left groin catheter no longer functional requiring change. Description of Procedure Patient was made comfortable in the supine position. The right femoral region was prepped draped in the same surgical fashion. Anatomic landmarks identified. Local anesthetic was infiltrated. The right femoral vein was cannulated on second stick. Dark venous blood was identified. Guidewire placed the needle and needle was removed. Small skin incision was made around the guidewire and dilators were used. A temporary hemodialysis catheter was inserted over the wire without complication. Wire was removed and discarded. Line was sutured in place. All 3 ports flushed and aspirated without complication. 2 ports were hemodialysis and 1 is a accessory port for infusion. Dressings were applied. Patient tolerated well. Plan for HD today Dario Mast June 14, 2019 15:16
--- NOTE | 2019-06-14 17:26 | General Progress Note ---
Assessment/Plan Problem List: (1) Anemia ICD Codes: D64.9 - Anemia, unspecified SNOMED: 157048378 (2) Renal failure ICD Codes: N19 - Unspecified kidney failure SNOMED: 89656994 (3) Suspected COVID-19 virus infection ICD Codes: R68.89 - Other general symptoms and signs SNOMED: 389177652 (4) HTN (hypertension) ICD Codes: I10 - Essential (primary) hypertension SNOMED: 57881352 (5) CASSANDRA (acute kidney injury) ICD Codes: N17.9 - Acute kidney failure, unspecified SNOMED: 5754283, 34017900 (6) Anemia in chronic kidney disease (CKD) ICD Codes: N18.9 - Chronic kidney disease, unspecified; D63.1 - Anemia in chronic kidney disease SNOMED: 424401071 (7) Suspected COVID-19 virus infection ICD Codes: R68.89 - Other general symptoms and signs SNOMED: 695391346 Status: progressing Assessment/Plan: worsening renal failure s/p pressor pna covid positve iresp failure afebrile lethargic poor prognosis Subjective ROS Limited/Unobtainable: Yes Allergies: Coded Allergies: No Known Allergies (Unverified , 05/28/19) Objective Last 24 Hour Vital Signs Date Time Temp Pulse Resp B/P (MAP) Pulse Ox O2 Delivery O2 Flow Rate FiO2 06/14/19 17:00 85 28 140/64 (89) 99 06/14/19 16:30 84 28 146/72 (96) 99 06/14/19 16:00 77 06/14/19 16:00 99.6 81 29 117/59 (78) 99 06/14/19 16:00 60 06/14/19 15:49 28 Mechanical Ventilator 60 06/14/19 15:30 77 26 110/55 (73) 97 06/14/19 15:00 82 26 116/58 (77) 96 06/14/19 14:30 83 29 107/54 (71) 97 06/14/19 14:00 84 30 114/64 (81) 96 06/14/19 13:30 82 30 117/60 (79) 97 06/14/19 13:00 81 29 106/57 (73) 97 06/14/19 12:30 84 26 100/58 (72) 96 06/14/19 12:00 89 5/4/20 12:00 60 06/14/19 12:00 99.2 85 26 94/58 (70) 94 06/14/19 11:30 89 26 82/47 (59) 92 06/14/19 11:00 76 31 96/56 (69) 98 06/14/19 10:37 77 27 60 06/14/19 10:30 77 32 99/58 (72) 98 06/14/19 10:00 79 28 87/51 (63) 98 06/14/19 09:30 79 19 95/72 (80) 95 06/14/19 09:05 118/63 06/14/19 09:00 85 26 118/63 (81) 93 06/14/19 08:30 72 26 120/64 (82) 94 06/14/19 08:00 72 06/14/19 08:00 60 06/14/19 08:00 99.1 71 26 120/61 (80) 94 06/14/19 07:30 72 26 115/64 (81) 94 06/14/19 07:17 72 26 60 06/14/19 07:00 99.0 72 25 122/63 (82) 94 06/14/19 06:50 121/61 06/14/19 06:50 26 Mechanical Ventilator 60 06/14/19 06:30 72 29 126/68 (87) 96 06/14/19 06:00 70 27 125/68 (87) 99 06/14/19 06:00 125/68 06/14/19 06:00 26 Mechanical Ventilator 70 06/14/19 05:48 99.8 06/14/19 05:34 71 28 60 06/14/19 05:30 70 24 110/59 (76) 98 06/14/19 05:00 77 22 93/59 (70) 95 06/14/19 05:00 93/59 06/14/19 05:00 26 Mechanical Ventilator 70 06/14/19 04:30 99.8 103 23 108/62 (77) 95 06/14/19 04:07 28 Mechanical Ventilator 100 06/14/19 04:00 70 06/14/19 04:00 70 29 126/66 (86) 96 06/14/19 04:00 70 06/14/19 03:30 66 29 141/70 (93) 98 06/14/19 03:22 65 28 60 06/14/19 03:00 63 31 160/74 (102) 99 06/14/19 03:00 160/72 06/14/19 03:00 26 Mechanical Ventilator 70 06/14/19 02:30 65 25 112/61 (78) 100 06/14/19 02:00 106/59 06/14/19 02:00 26 Mechanical Ventilator 70 06/14/19 02:00 67 26 106/59 (75) 100 06/14/19 01:45 100/54 06/14/19 01:30 69 26 97/56 (70) 99 06/14/19 01:30 97/56 06/14/19 01:29 69 26 80 06/14/19 01:00 66 31 109/60 (76) 99 06/14/19 01:00 109/60 06/14/19 01:00 28 Mechanical Ventilator 70 06/14/19 00:30 65 27 114/64 (81) 99 06/14/19 00:30 114/64 06/14/19 00:15 122/68 06/14/19 00:00 126/70 06/14/19 00:00 26 Mechanical Ventilator 70 06/14/19 00:00 97.4 62 28 126/70 (88) 98 06/13/19 23:45 130/70 06/13/19 23:37 59 26 80 06/13/19 23:30 62 32 138/71 (93) 98 06/13/19 23:00 98.6 65 28 132/67 (88) 99 06/13/19 23:00 26 Mechanical Ventilator 70 06/13/19 22:43 117/62 06/13/19 22:30 67 31 119/64 (82) 98 06/13/19 22:00 115/61 06/13/19 22:00 26 Mechanical Ventilator 70 06/13/19 22:00 68 26 115/61 (79) 97 06/13/19 21:45 68 26 112/61 (78) 97 20 21:45 112/61 06/13/19 21:39 67 29 80 06/13/19 21:30 112/60 06/13/19 21:30 67 26 112/60 (77) 97 06/13/19 21:15 67 26 117/62 (80) 98 20 21:15 117/62 20 21:00 113/64 20 21:00 28 Mechanical Ventilator 70 06/13/19 21:00 66 26 113/64 (80) 98 20 20:45 66 26 129/66 (87) 99 20 20:45 117/62 20 20:30 65 26 133/69 (90) 98 20 20:15 64 26 140/75 (96) 100 06/13/19 20:00 97.8 64 28 136/71 (92) 99 06/13/19 20:00 26 Mechanical Ventilator 80 06/13/19 20:00 80 06/13/19 20:00 62 06/13/19 19:54 66 29 80 06/13/19 19:45 67 30 132/70 (90) 99 06/13/19 19:30 68 28 130/65 (86) 100 06/13/19 19:15 71 26 116/62 (80) 98 06/13/19 19:00 116/62 06/13/19 19:00 26 Mechanical Ventilator 80 06/13/19 19:00 94 24 95/57 (70) 99 06/13/19 18:45 80 26 106/58 (74) 94 06/13/19 18:30 75 27 117/67 (84) 98 06/13/19 18:15 75 26 120/65 (83) 98 06/13/19 18:00 77 26 120/68 (85) 99 06/13/19 18:00 120/65 06/13/19 18:00 26 Mechanical Ventilator 80 06/13/19 17:45 77 29 122/72 (89) 99 06/13/19 17:30 79 26 116/68 (84) 99 Intake and Output 06/13/19 06/14/19 19:00 07:00 Intake Total 1499.6050 ml 1310.83 ml Output Total 30 ml 20 ml Balance 1469.6050 ml 1290.83 ml IV Total 1459.6050 ml 1285.83 ml Tube Feeding 40 ml 25 ml Output Urine Total 30 ml 20 ml Laboratory Tests 06/14/19 05:30: White Blood Count 23.2*H, Red Blood Count 2.85L, Hemoglobin 8.7L, Hematocrit 26.0L, Mean Corpuscular Volume 92, Mean Corpuscular Hemoglobin 30.5, Mean Corpuscular Hemoglobin Concent 33.4, Red Cell Distribution Width 16.0H, Platelet Count 122L, Mean Platelet Volume 7.3, Neutrophils (%) (Auto) , Lymphocytes (%) (Auto) , Monocytes (%) (Auto) , Eosinophils (%) (Auto) , Basophils (%) (Auto) , Differential Total Cells Counted 100, Neutrophils % ( Manual) 80H, Lymphocytes % (Manual) 8L, Monocytes % (Manual) 11H, Eosinophils % (Manual) 1, Basophils % (Manual) 0, Band Neutrophils 0, Nucleated Red Blood Cells 1, Platelet Estimate DecreasedL, Platelet Morphology Normal, Prothrombin Time 13.2H, Prothromb Time International Ratio 1.3H, Activated Partial Thromboplast Time 33, Sodium Level 128L, Potassium Level 5.0, Chloride Level 87L , Carbon Dioxide Level 21, Anion Gap 20H, Blood Urea Nitrogen 96H, Creatinine 11.6H, Estimat Glomerular Filtration Rate 4.4, Glucose Level 275#H, Uric Acid 8.1H, Calcium Level 8.4L, Phosphorus Level 8.3H, Magnesium Level 2.2, Total Bilirubin 0.4, Aspartate Amino Transf (AST/SGOT) 91H, Alanine Aminotransferase ( ALT/SGPT) 44, Alkaline Phosphatase 88, C-Reactive Protein, Quantitative 25.2H, Pro-B-Type Natriuretic Peptide 08239U, Total Protein 7.7, Albumin 2.2L, Globulin 5.5, Albumin/Globulin Ratio 0.4L Height (Feet): 6 Height (Inches): 1.00 Weight (Pounds): 189 Karishma Mulligan MD June 14, 2019 17:26
[2019-06-14] MEDS ORDERED: Digoxin 0.5mg/2ml Inj IVP SCH (18:30)
[2019-06-14] MEDS: Dyna-Hex 2% Top Sol 2oz TOPIC SCH (20:57)
[2019-06-14] MEDS: Epoetin Alfa-EPBX(ESRD on dialysis)10,000 unit/ml vial SUBQ SCH (20:58)
--- NOTE | 2019-06-14 22:26 | Pulmonolgy Critical Care Note ---
Critical Care - Asmt/Plan Assessment/Plan: Pulmonary CCM Progress Note HPI: Patient is a 68 year old man, correction resident, admitted c/o shortness of breath, cough, noted to have Covid 19 Pneumonia. S/p intubation, remains on pressors, ABG/CXR noted Feeding tube repositioned FIO2 60% HD line reinserted ID following On HD per Renal Past Medical History: COPD, CKD, Hypertension, Anemia Hypotension requiring pressors, in ICU Persistently elevated WCC Allergies: No Known Allergies Improving Pulmonary Status on HD Physical Exam Vital Signs Noted Sedated on ventilator WDWN, no distress HEENT: NCAT,moist mm Chest: Occasional rhonchi Heart: HS1, HS2, RRR Abdomen: SNTND, no masses Extremities: Well perfused, mild edema [employer]: No focal signs, no seizures, seadted Impression: COVID-19 virus infection Pneumonia Respiratory failure on ventilator Volume overload - on HD Cardiomegaly Lymphopenia Elevated AST COPD Chronic Kidney Disease, worsening renal function - HD Hypertension Worsening anemia Plan: Antibiotics per ID HD Pressors PRN ACVC ABG PRN 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 Medications 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 Monitor cultures/viral studies PPX Hemodialysis per Renal Psychiatry following [facility] - [facility] requested for when available Laboratory Tests Noted: CXR: Hypoventilatory exam, interstitial changes, cardiomegaly, worsening infiltrates Subjective ROS Limited/Unobtainable: No Constitutional: Denies: fever Respiratory: Reports: dry cough, shortness of breath Gastrointestinal/Abdominal: Reports: diarrhea, other - colace was stopped Psychiatric: Reports: other - refuses labs Allergies: Coded Allergies: No Known Allergies (Unverified , 05/28/19) All Systems: reviewed and negative except above Labs noted Critical Care - Objective Last 24 Hour Vital Signs Date Time Temp Pulse Resp B/P (MAP) Pulse Ox O2 Delivery O2 Flow Rate FiO2 06/14/19 22:00 111 24 126/73 (90) 100 06/14/19 21:30 116 22 135/67 (89) 100 06/14/19 21:14 111 26 60 06/14/19 21:00 115 25 127/65 (85) 100 06/14/19 20:30 120 27 118/65 (82) 100 06/14/19 20:13 126 26 100 Mechanical Ventilator 60 122 27 60 06/14/19 20:00 Mechanical Ventilator 06/14/19 20:00 122 5/4/20 20:00 60 06/14/19 20:00 101.1 123 26 118/59 (78) 99 06/14/19 19:30 124 26 125/68 (87) 100 06/14/19 19:00 122 32 149/77 (101) 99 06/14/19 18:40 115 06/14/19 18:40 116/62 06/14/19 18:30 126 26 116/62 (80) 97 06/14/19 18:00 127 26 160/69 (99) 98 06/14/19 17:30 123 26 115/59 (77) 98 06/14/19 17:00 85 28 140/64 (89) 99 06/14/19 16:30 84 28 146/72 (96) 99 06/14/19 16:00 Mechanical Ventilator 06/14/19 16:00 77 06/14/19 16:00 99.6 81 29 117/59 (78) 99 06/14/19 16:00 60 06/14/19 15:49 28 Mechanical Ventilator 60 06/14/19 15:30 77 26 110/55 (73) 97 06/14/19 15:00 82 26 116/58 (77) 96 06/14/19 14:30 83 29 107/54 (71) 97 06/14/19 14:00 84 30 114/64 (81) 96 06/14/19 13:30 82 30 117/60 (79) 97 06/14/19 13:00 81 29 106/57 (73) 97 06/14/19 12:30 84 26 100/58 (72) 96 06/14/19 12:00 Mechanical Ventilator 06/14/19 12:00 89 06/14/19 12:00 60 06/14/19 12:00 99.2 85 26 94/58 (70) 94 06/14/19 11:30 89 26 82/47 (59) 92 06/14/19 11:00 76 31 96/56 (69) 98 06/14/19 10:37 77 27 60 06/14/19 10:30 77 32 99/58 (72) 98 06/14/19 10:00 79 28 87/51 (63) 98 06/14/19 09:30 79 19 95/72 (80) 95 06/14/19 09:05 118/63 06/14/19 09:00 85 26 118/63 (81) 93 06/14/19 08:30 72 26 120/64 (82) 94 06/14/19 08:00 Mechanical Ventilator 06/14/19 08:00 72 06/14/19 08:00 60 06/14/19 08:00 99.1 71 26 120/61 (80) 94 06/14/19 07:30 72 26 115/64 (81) 94 06/14/19 07:17 72 26 60 06/14/19 07:00 99.0 72 25 122/63 (82) 94 06/14/19 06:50 121/61 06/14/19 06:50 26 Mechanical Ventilator 60 06/14/19 06:30 72 29 126/68 (87) 96 06/14/19 06:00 70 27 125/68 (87) 99 06/14/19 06:00 125/68 06/14/19 06:00 26 Mechanical Ventilator 70 06/14/19 05:48 99.8 06/14/19 05:34 71 28 60 06/14/19 05:30 70 24 110/59 (76) 98 06/14/19 05:00 77 22 93/59 (70) 95 06/14/19 05:00 93/59 06/14/19 05:00 26 Mechanical Ventilator 70 06/14/19 04:30 99.8 103 23 108/62 (77) 95 06/14/19 04:07 28 Mechanical Ventilator 100 06/14/19 04:00 70 06/14/19 04:00 70 29 126/66 (86) 96 06/14/19 04:00 70 06/14/19 03:30 66 29 141/70 (93) 98 06/14/19 03:22 65 28 60 06/14/19 03:00 63 31 160/74 (102) 99 06/14/19 03:00 160/72 06/14/19 03:00 26 Mechanical Ventilator 70 06/14/19 02:30 65 25 112/61 (78) 100 06/14/19 02:00 106/59 06/14/19 02:00 26 Mechanical Ventilator 70 06/14/19 02:00 67 26 106/59 (75) 100 06/14/19 01:45 100/54 06/14/19 01:30 69 26 97/56 (70) 99 06/14/19 01:30 97/56 06/14/19 01:29 69 26 80 06/14/19 01:00 66 31 109/60 (76) 99 06/14/19 01:00 109/60 06/14/19 01:00 28 Mechanical Ventilator 70 06/14/19 00:30 65 27 114/64 (81) 99 06/14/19 00:30 114/64 06/14/19 00:15 122/68 06/14/19 00:00 126/70 06/14/19 00:00 26 Mechanical Ventilator 70 06/14/19 00:00 97.4 62 28 126/70 (88) 98 06/13/19 23:45 130/70 06/13/19 23:37 59 26 80 06/13/19 23:30 62 32 138/71 (93) 98 06/13/19 23:00 98.6 65 28 132/67 (88) 99 06/13/19 23:00 26 Mechanical Ventilator 70 06/13/19 22:43 117/62 06/13/19 22:30 67 31 119/64 (82) 98 Critical Care - Subjective ROS Limited/Unobtainable: No FI02: 60 Vent Support Breath Rate: 26 Vent Support Mode: AC Vent Tidal Volume: 500 Sputum Amount: Small PEEP: 8.0 PIP: 31 Tube Feeding Amount: 10 I&O: Intake and Output 06/13/19 06/14/19 19:00 07:00 Intake Total 1499.6050 ml 1310.83 ml Output Total 30 ml 20 ml Balance 1469.6050 ml 1290.83 ml IV Total 1459.6050 ml 1285.83 ml Tube Feeding 40 ml 25 ml Output Urine Total 30 ml 20 ml ET-Tube: 7.5 ET Position: 24 Arturo Mckeon MD June 14, 2019 22:26
[2019-06-14] MEDS: Acetaminophen 650mg/20.3ml NG PRN (22:35)
[2019-06-15] VITALS (44 sets, daily range): BP systolic 60–181; BP diastolic 37–85
[2019-06-15] MEDS: Renvela 800mg Pkt NG SCH ×4 (00:54→17:09)
[2019-06-15] MEDS: Albuterol 90mcg Inhaler 8gm INH SCH ×6 (02:04→22:46)
[2019-06-15] MEDS: Acetaminophen 650mg/20.3ml NG PRN (02:45)
[2019-06-15] MEDS: Norepinephrine Bitartrate 16 MG in D5W 500ml 550 ML IV SCH ×2 (03:48→17:09)
[2019-06-15] MEDS: fentaNYL Citrate 2,500 MCG in NS 200 ML IV SCH ×2 (04:12→17:10)
[2019-06-15] MEDS: Piperacillin/Tazobactam 2.25 GM in D5W 55 ML IVPB SCH ×3 (05:33→22:11)
[2019-06-15 07:04] LABS: HEMATOCRIT 22.5 % (42.0-52.0); HEMOGLOBIN 7.7 G/DL (14.2-18.0); MEAN CORPUSCULAR VOLUME 92 FL (80-99); PLATELET COUNT 111 K/UL (150-450); RED BLOOD COUNT 2.45 M/UL (4.70-6.10); RED CELL DISTRIBUTION WIDTH 16.5 % (11.6-14.8); WHITE BLOOD COUNT 19.2 K/UL (4.8-10.8)
--- NOTE | 2019-06-15 07:20 | Hematology/Onc Progress Note ---
Assessment/Plan Assessment/Plan Assessment and Recs: # Anemia of chronic disease, likely related ot underlying kidney disease --> hgb trend 9-->8-->7.3-->7.9-->6.8->9.5-->10->8.3-->7.7 --> transfuse as needed, hgb goal >7 --> no evidence of hemolysis --> peripheral smear has been reviewed --> epogen started tid ==>> transfuse w 2 units 06/08 # Leukocytosis likely related to suspected COVID-19 virus infection --> on abx and plaquenil --> trend smear as needed --> initially 4-->11-->14.5-->21-->26-->21->24--.28-->23-->19 --> pulm is aware --> on abx cefepime/vanc->zosyn/vanc --> pressors as neededon board # Lymphopenia --> likely related to covid19 # Respiratory failure --> s/p vent # Possible Pneumonia # Cardiomegaly # Transaminitis with Elevated AST # COPD # Chronic Kidney Disease --> per renal hd # Hypertension # Dvt ppx lovenox Appreciate consultation and dw Rn Subjective Constitutional: Denies: no symptoms, chills, fever, malaise, weakness, other HEENT: Denies: no symptoms, eye pain, blurred vision, tearing, double vision, ear pain, ear discharge, nose pain, nose congestion, throat pain, throat swelling, mouth pain, mouth swelling, other Cardiovascular: Denies: no symptoms, chest pain, edema, irregular heart rate, lightheadedness, palpitations, syncope, other Gastrointestinal/Abdominal: Denies: no symptoms, abdomen distended, abdominal pain, black stools, tarry stools, blood in stool, constipated, diarrhea, difficulty swallowing, nausea, poor appetite, poor fluid intake, rectal bleeding , vomiting, other Genitourinary: Denies: no symptoms, burning, discharge, frequency, flank pain, hematuria, incontinence, pain, urgency, other Neurologic/Psychiatric: Denies: no symptoms, anxiety, depressed, emotional problems, headache, numbness, paresthesia, pre-existing deficit, seizure, tingling, tremors, weakness, other Endocrine: Denies: no symptoms, excessive sweating, flushing, intolerance to cold, intolerance to heat, increased hunger, increased thirst, increased urine, unexplained weight gain, unexplained weight loss, other Allergies: Coded Allergies: No Known Allergies (Unverified , 05/28/19) Subjective 06/01 extremely agitated, not allowing labs draws, no night sweats, cbc ordered 06/02 confused, restraints, on abx and plaquenil, hgb 7.9, nrb 15 L 06/03 is with nonrebreather, but not compliant, remains confused 06/05 no bleeding, labs noted, no major bleeding, otherwise comfortable 06/06 labs reviewed, no bleeding, meds noted, no night sweats, on levo and nonrebreather 06/07 labs noted, no bleeding, meds reviewed, no bleeding, wbc higher 06/08 to get 2 units prbc, no night sweats, meds reviewed 06/09 is on cefepime and vanc, labs noted, dw Rn, no bleeding 06/10 no major changes, labs reviewed, wbc 28k, on abx, cefepime 06/12 remains in icu, labs noted, no night sweats or bleeding 06/13 sluggish pupils, remains agitated, per psych, no bleding, on vent, wbc sitll high 06/14 still confused, remains on vent, with ng, running nepro, on pressors Objective Objective Current Medications Medications (Trade) Dose Ordered Sig/Anthony Route PRN Reason Start Time Stop Time Status Last Admin Dose Admin Acetaminophen (Tylenol) 650 mg Q4H PRN NG Temp >100.5 06/13/19 11:00 07/13/19 10:59 06/15/19 02:45 Albuterol Sulfate (Proventil MDI) 2 puff Q4HRT INH 06/06/19 23:00 08/30/19 18:59 06/15/19 02:04 Allopurinol (allopurinoL) 300 mg DAILY NG 06/08/19 09:30 07/08/19 09:29 06/14/19 09:03 Chlorhexidine Gluconate (Michelle-Hex 2%) 1 applic DAILY@1999 TOPIC 06/07/19 20:00 09/05/19 19:59 06/14/19 20:57 Docusate Sodium (Colace) 100 mg THREE TIMES A DAY NG 06/07/19 13:00 07/07/19 12:59 06/14/19 18:13 Dopamine HCl/ Dextrose 250 ml @ 0 mls/hr Q24H PRN IV For hypotension 06/13/19 08:15 09/11/19 08:14 Enoxaparin Sodium (Lovenox) 30 mg DAILY SUBQ 06/07/19 09:00 08/27/19 08:59 06/14/19 09:02 Epoetin Aftab (Epoetin Aftab(ESRD on dialysis)) 10,000 unit SUBQ 06/07/19 21:00 08/31/19 20:59 06/14/19 20:58 Fentanyl Citrate 2500 mcg/Sodium Chloride 250 ml @ 0 mls/hr Q24H IV 06/13/19 07:00 06/20/19 06:59 06/15/19 04:12 Hydralazine HCl (Apresoline) 10 mg Q4H PRN IV Blood pressure over 160 systol 06/07/19 10:15 09/05/19 10:14 Midodrine (Pro-Amatine) 10 mg THREE TIMES A DAY NG 06/09/19 13:00 09/07/19 12:59 06/14/19 13:02 Norepinephrine Bitartrate 16 mg/ Dextrose 566 ml @ 0 mls/hr Q24H IV 06/13/19 09:45 07/13/19 09:44 06/15/19 03:48 Pantoprazole (Protonix) 40 mg Q12HR IVP 06/07/19 21:00 07/07/19 08:59 06/14/19 20:58 Piperacillin Sod/ Tazobactam Sod 2.25 gm/Dextrose 55 ml @ 110 mls/hr Q8HR IVPB 06/13/19 14:00 06/18/19 13:59 06/15/19 05:33 Salmeterol Xinafoate/ Fluticasone (Advair 100/50 Diskus) 1 puffs BID INH 06/07/19 09:00 08/27/19 08:59 06/11/19 09:14 Sevelamer Carbonate (Renvela) 1,600 mg Q6HR NG 06/14/19 12:00 09/05/19 12:59 06/15/19 05:33 Vancomycin HCl (Vanco rx to dose) 1 ea DAILY PRN MISC Per rx protocol 06/13/19 11:45 07/13/19 11:44 Vasopressin 100 units/Sodium Chloride 100 ml @ 0 mls/hr Q24H IV 06/12/19 11:00 07/12/19 10:59 06/14/19 09:03 Last 24 Hour Vital Signs Date Time Temp Pulse Resp B/P (MAP) Pulse Ox O2 Delivery O2 Flow Rate FiO2 06/15/19 07:00 83 30 147/73 (97) 99 06/15/19 07:00 147/73 06/15/19 07:00 30 Mechanical Ventilator 60 06/15/19 06:30 86 29 139/69 (92) 99 06/15/19 06:00 99.9 88 29 141/67 (91) 99 06/15/19 06:00 141/67 06/15/19 06:00 29 Mechanical Ventilator 60 06/15/19 05:30 90 30 132/68 (89) 99 06/15/19 05:00 139/68 06/15/19 05:00 31 Mechanical Ventilator 60 06/15/19 05:00 88 31 139/68 (91) 99 06/15/19 04:58 111 26 60 06/15/19 04:30 89 26 138/65 (89) 98 06/15/19 04:12 26 Mechanical Ventilator 60 06/15/19 04:00 Mechanical Ventilator 06/15/19 04:00 109 06/15/19 04:00 130/57 06/15/19 04:00 26 Mechanical Ventilator 60 06/15/19 04:00 101.3 109 26 130/57 (81) 98 06/15/19 04:00 60 06/15/19 03:48 118/58 06/15/19 03:30 112 32 118/58 (78) 99 06/15/19 03:15 101.3 06/15/19 03:00 112/63 06/15/19 03:00 32 Mechanical Ventilator 60 06/15/19 03:00 111 32 112/63 (79) 100 06/15/19 02:31 104 26 100 Mechanical Ventilator 50 109 26 50 06/15/19 02:30 112 29 116/64 (81) 100 06/15/19 02:00 110 26 99/61 (74) 98 06/15/19 02:00 99/61 06/15/19 02:00 26 Mechanical Ventilator 100 06/15/19 01:30 117 26 100/58 (72) 98 06/15/19 01:00 117 28 117/64 (81) 98 06/15/19 01:00 117/64 06/15/19 01:00 26 Mechanical Ventilator 60 06/15/19 00:40 114 26 60 06/15/19 00:30 115 28 114/64 (81) 98 06/15/19 00:00 116 06/15/19 00:00 119/64 06/15/19 00:00 27 Mechanical Ventilator 60 06/15/19 00:00 118 27 119/64 (82) 98 06/15/19 00:00 60 06/15/19 00:00 Mechanical Ventilator 06/14/19 23:30 116 26 121/61 (81) 98 06/14/19 23:00 122 29 123/66 (85) 98 06/14/19 23:00 123/66 06/14/19 23:00 29 Mechanical Ventilator 60 06/14/19 22:30 119 27 121/66 (84) 100 06/14/19 22:30 109 26 100 Mechanical Ventilator 50 112 26 60 06/14/19 22:00 126/73 06/14/19 22:00 24 Mechanical Ventilator 60 06/14/19 22:00 111 24 126/73 (90) 100 06/14/19 21:30 116 22 135/67 (89) 100 06/14/19 21:14 111 26 60 06/14/19 21:00 115 25 127/65 (85) 100 06/14/19 21:00 122/64 06/14/19 21:00 26 Mechanical Ventilator 60 06/14/19 20:30 120 27 118/65 (82) 100 06/14/19 20:13 126 26 100 Mechanical Ventilator 60 122 27 60 06/14/19 20:00 118/59 06/14/19 20:00 27 Mechanical Ventilator 60 06/14/19 20:00 Mechanical Ventilator 06/14/19 20:00 122 06/14/19 20:00 60 06/14/19 20:00 101.1 123 26 118/59 (78) 99 06/14/19 19:30 124 26 125/68 (87) 100 06/14/19 19:00 122 32 149/77 (101) 99 06/14/19 18:40 115 06/14/19 18:40 116/62 06/14/19 18:30 126 26 116/62 (80) 97 06/14/19 18:00 127 26 160/69 (99) 98 06/14/19 17:30 123 26 115/59 (77) 98 06/14/19 17:00 85 28 140/64 (89) 99 06/14/19 16:30 84 28 146/72 (96) 99 06/14/19 16:00 Mechanical Ventilator 06/14/19 16:00 77 06/14/19 16:00 99.6 81 29 117/59 (78) 99 06/14/19 16:00 60 06/14/19 15:49 28 Mechanical Ventilator 60 06/14/19 15:30 77 26 110/55 (73) 97 06/14/19 15:00 82 26 116/58 (77) 96 06/14/19 14:30 83 29 107/54 (71) 97 06/14/19 14:00 84 30 114/64 (81) 96 06/14/19 13:30 82 30 117/60 (79) 97 06/14/19 13:00 81 29 106/57 (73) 97 06/14/19 12:30 84 26 100/58 (72) 96 06/14/19 12:00 Mechanical Ventilator 06/14/19 12:00 89 06/14/19 12:00 60 06/14/19 12:00 99.2 85 26 94/58 (70) 94 06/14/19 11:30 89 26 82/47 (59) 92 06/14/19 11:00 76 31 96/56 (69) 98 06/14/19 10:37 77 27 60 06/14/19 10:30 77 32 99/58 (72) 98 06/14/19 10:00 79 28 87/51 (63) 98 06/14/19 09:30 79 19 95/72 (80) 95 06/14/19 09:05 118/63 06/14/19 09:00 85 26 118/63 (81) 93 06/14/19 08:30 72 26 120/64 (82) 94 06/14/19 08:00 Mechanical Ventilator 06/14/19 08:00 72 06/14/19 08:00 60 06/14/19 08:00 99.1 71 26 120/61 (80) 94 06/14/19 07:30 72 26 115/64 (81) 94 06/14/19 07:17 72 26 60 06/14/19 07:00 99.0 72 25 122/63 (82) 94 06/14/19 06:50 121/61 06/14/19 06:50 26 Mechanical Ventilator 60 06/14/19 06:30 72 29 126/68 (87) 96 06/14/19 06:00 70 27 125/68 (87) 99 06/14/19 06:00 125/68 06/14/19 06:00 26 Mechanical Ventilator 70 06/14/19 05:48 99.8 06/14/19 05:34 71 28 60 06/14/19 05:30 70 24 110/59 (76) 98 06/14/19 05:00 77 22 93/59 (70) 95 06/14/19 05:00 93/59 06/14/19 05:00 26 Mechanical Ventilator 70 06/14/19 04:30 99.8 103 23 108/62 (77) 95 06/14/19 04:07 28 Mechanical Ventilator 100 06/14/19 04:00 70 06/14/19 04:00 70 29 126/66 (86) 96 06/14/19 04:00 70 06/14/19 03:30 66 29 141/70 (93) 98 06/14/19 03:22 65 28 60 06/14/19 03:00 63 31 160/74 (102) 99 06/14/19 03:00 160/72 06/14/19 03:00 26 Mechanical Ventilator 70 06/14/19 02:30 65 25 112/61 (78) 100 06/14/19 02:00 106/59 06/14/19 02:00 26 Mechanical Ventilator 70 06/14/19 02:00 67 26 106/59 (75) 100 06/14/19 01:45 100/54 06/14/19 01:30 69 26 97/56 (70) 99 06/14/19 01:30 97/56 06/14/19 01:29 69 26 80 06/14/19 01:00 66 31 109/60 (76) 99 06/14/19 01:00 109/60 06/14/19 01:00 28 Mechanical Ventilator 70 06/14/19 00:30 65 27 114/64 (81) 99 06/14/19 00:30 114/64 06/14/19 00:15 122/68 06/14/19 00:00 126/70 06/14/19 00:00 26 Mechanical Ventilator 70 06/14/19 00:00 97.4 62 28 126/70 (88) 98 06/13/19 23:45 130/70 06/13/19 23:37 59 26 80 06/13/19 23:30 62 32 138/71 (93) 98 06/13/19 23:00 98.6 65 28 132/67 (88) 99 06/13/19 23:00 26 Mechanical Ventilator 70 06/13/19 22:43 117/62 06/13/19 22:30 67 31 119/64 (82) 98 06/13/19 22:00 115/61 06/13/19 22:00 26 Mechanical Ventilator 70 06/13/19 22:00 68 26 115/61 (79) 97 06/13/19 21:45 68 26 112/61 (78) 97 06/13/19 21:45 112/61 06/13/19 21:39 67 29 80 06/13/19 21:30 112/60 06/13/19 21:30 67 26 112/60 (77) 97 06/13/19 21:15 67 26 117/62 (80) 98 06/13/19 21:15 117/62 06/13/19 21:00 113/64 06/13/19 21:00 28 Mechanical Ventilator 70 06/13/19 21:00 66 26 113/64 (80) 98 06/13/19 20:45 66 26 129/66 (87) 99 06/13/19 20:45 117/62 06/13/19 20:30 65 26 133/69 (90) 98 06/13/19 20:15 64 26 140/75 (96) 100 06/13/19 20:00 97.8 64 28 136/71 (92) 99 06/13/19 20:00 26 Mechanical Ventilator 80 06/13/19 20:00 80 5/3/20 20:00 62 520 19:54 66 29 80 5/20 19:45 67 30 132/70 (90) 99 20 19:30 68 28 130/65 (86) 100 20 19:15 71 26 116/62 (80) 98 5//20 19:00 116/62 5/20 19:00 26 Mechanical Ventilator 80 06/13/19 19:00 94 24 95/57 (70) 99 06/12/20 18:45 80 26 106/58 (74) 94 06/12/20 18:30 75 27 117/67 (84) 98 //20 18:15 75 26 120/65 (83) 98 20 18:00 77 26 120/68 (85) 99 06/13/19 18:00 120/65 06/13/19 18:00 26 Mechanical Ventilator 80 06/13/19 17:45 77 29 122/72 (89) 99 06/13/19 17:30 79 26 116/68 (84) 99 20 17:15 79 27 102/66 (78) 99 20 17:00 80 25 100/60 (73) 98 20 17:00 100/60 06/13/19 17:00 26 Mechanical Ventilator 80 06/13/19 16:45 85 26 94/54 (67) 97 06/13/19 16:41 87 26 80 06/13/19 16:30 90 26 90/51 (64) 86 06/13/19 16:15 73 26 103/55 (71) 97 20 16:00 74 06/13/19 16:00 80 20 16:00 71 27 106/59 (75) 97 20 16:00 103/55 20 16:00 26 Mechanical Ventilator 80 06/13/19 15:45 74 26 114/60 (78) 97 06/12/20 15:30 72 26 121/65 (83) 98 //20 15:15 73 27 122/66 (84) 99 //20 15:15 121/65 520 15:00 96.9 78 26 110/61 (77) 97 06/12/20 15:00 122/66 06/13/19 15:00 26 Mechanical Ventilator 80 06/13/19 14:54 84 31 60 06/13/19 14:45 77 26 107/58 (74) 97 06/13/19 14:30 76 21 106/61 (76) 96 06/13/19 14:15 79 21 110/67 (81) 96 06/13/19 14:00 79 26 111/61 (78) 96 06/13/19 14:00 110/67 06/13/19 14:00 26 Mechanical Ventilator 80 06/13/19 13:45 67 26 100/72 (81) 93 06/13/19 13:30 79 25 135/69 (91) 93 06/13/19 13:15 69 26 144/68 (93) 96 06/13/19 13:15 135/69 06/13/19 13:00 73 24 153/69 (97) 95 06/13/19 13:00 144/68 06/13/19 13:00 26 Mechanical Ventilator 80 06/13/19 12:56 71 19 116/56 (76) 94 06/13/19 12:45 80 26 177/67 (103) 95 06/13/19 12:39 26 Mechanical Ventilator 100 06/13/19 12:30 75 26 136/61 (86) 95 06/13/19 12:30 26 Mechanical Ventilator 80 06/13/19 12:30 26 139/61 Mechanical Ventilator 80 06/13/19 12:30 75 26 60 06/13/19 12:00 79 06/13/19 12:00 75 26 108/58 (75) 92 06/13/19 12:00 139/61 06/13/19 12:00 26 Mechanical Ventilator 70 06/13/19 12:00 26 Mechanical Ventilator 70 06/13/19 12:00 26 139/61 Mechanical Ventilator 70 06/13/19 12:00 139/61 06/13/19 12:00 99.2 108/58 (75) 06/13/19 12:00 80 06/13/19 11:47 125/60 06/13/19 11:30 77 26 128/61 (83) 94 06/13/19 11:00 26 Mechanical Ventilator 70 06/13/19 11:00 26 Mechanical Ventilator 70 06/13/19 11:00 26 128/61 Mechanical Ventilator 70 06/13/19 11:00 140/62 06/13/19 11:00 80 25 140/62 (88) 96 06/13/19 10:40 84 26 60 06/13/19 10:30 82 26 116/57 (76) 95 06/13/19 10:00 26 Mechanical Ventilator 50 06/13/19 10:00 26 Mechanical Ventilator 50 06/13/19 10:00 26 140/62 Mechanical Ventilator 50 06/13/19 10:00 109/50 06/13/19 10:00 115 27 109/57 (74) 98 06/13/19 09:45 88 27 109/58 (75) 98 06/13/19 09:30 84 26 59/37 (44) 99 06/13/19 09:00 121/58 06/13/19 09:00 26 Mechanical Ventilator 50 06/13/19 09:00 26 Mechanical Ventilator 50 06/13/19 09:00 26 124/57 Mechanical Ventilator 50 06/13/19 09:00 119/57 06/13/19 09:00 84 26 121/58 (79) 99 06/13/19 08:41 83 26 60 06/13/19 08:30 85 27 119/57 (77) 98 06/13/19 08:00 104.0 06/13/19 08:00 85 06/13/19 08:00 26 Mechanical Ventilator 50 06/13/19 08:00 26 Mechanical Ventilator 50 06/13/19 08:00 26 116/56 Mechanical Ventilator 50 06/13/19 08:00 124/57 06/13/19 08:00 50 06/13/19 08:00 85 26 121/57 (78) 98 06/13/19 07:30 85 26 124/57 (79) 98 06/13/19 07:30 101.3 06/13/19 07:25 86 26 60 06/13/19 07:23 116/56 Intake and Output 06/14/19 06/15/19 19:00 07:00 Intake Total 1104.085 ml 724.24 ml Output Total 0 ml 15 ml Balance 1104.085 ml 709.24 ml Free Water 40 ml IV Total 1044.085 ml 564.24 ml Tube Feeding 60 ml 120 ml Output Urine Total 0 ml 15 ml Labs Test 06/12/19 07:50 06/13/19 05:35 06/13/19 07:30 06/14/19 05:30 White Blood Count 29.7 K/UL (4.8-10.8) 19.9 K/UL (4.8-10.8) 23.2 K/UL (4.8-10.8) Red Blood Count 3.04 M/UL (4.70-6.10) 2.68 M/UL (4.70-6.10) 2.85 M/UL (4.70-6.10) Hemoglobin 9.4 G/DL (14.2-18.0) 8.3 G/DL (14.2-18.0) 8.7 G/DL (14.2-18.0) Hematocrit 27.4 % (42.0-52.0) 24.5 % (42.0-52.0) 26.0 % (42.0-52.0) Mean Corpuscular Volume 90 FL (80-99) 91 FL (80-99) 92 FL (80-99) Mean Corpuscular Hemoglobin 30.7 PG (27.0-31.0) 31.1 PG (27.0-31.0) 30.5 PG (27.0-31.0) Mean Corpuscular Hemoglobin Concent 34.2 G/DL (32.0-36.0) 34.0 G/DL (32.0-36.0) 33.4 G/DL (32.0-36.0) Red Cell Distribution Width 15.5 % (11.6-14.8) 14.8 % (11.6-14.8) 16.0 % (11.6-14.8) Platelet Count 141 K/UL (150-450) 106 K/UL (150-450) 122 K/UL (150-450) Mean Platelet Volume 6.8 FL (6.5-10.1) 7.2 FL (6.5-10.1) 7.3 FL (6.5-10.1) Neutrophils (%) (Auto) % (45.0-75.0) % (45.0-75.0) % (45.0-75.0) Lymphocytes (%) (Auto) % (20.0-45.0) % (20.0-45.0) % (20.0-45.0) Monocytes (%) (Auto) % (1.0-10.0) % (1.0-10.0) % (1.0-10.0) Eosinophils (%) (Auto) % (0.0-3.0) % (0.0-3.0) % (0.0-3.0) Basophils (%) (Auto) % (0.0-2.0) % (0.0-2.0) % (0.0-2.0) Differential Total Cells Counted 100 100 100 Neutrophils % (Manual) 92 % (45-75) 84 % (45-75) 80 % (45-75) Lymphocytes % (Manual) 4 % (20-45) 9 % (20-45) 8 % (20-45) Monocytes % (Manual) 4 % (1-10) 6 % (1-10) 11 % (1-10) Eosinophils % (Manual) 0 % (0-3) 0 % (0-3) 1 % (0-3) Basophils % (Manual) 0 % (0-2) 1 % (0-2) 0 % (0-2) Metamyelocytes % 2 % (0-0) Myelocytes % 2 % (0-0) Band Neutrophils 0 % (0-8) 0 % (0-8) 0 % (0-8) Platelet Estimate Decreased Decreased Decreased Platelet Morphology Normal Normal Normal Anisocytosis 1+ Sodium Level 142 MMOL/L (136-145) 134 MMOL/L (136-145) 128 MMOL/L (136-145) Potassium Level 3.5 MMOL/L (3.5-5.1) 4.9 MMOL/L (3.5-5.1) 5.0 MMOL/L (3.5-5.1) Chloride Level 95 MMOL/L (98-107) 92 MMOL/L (98-107) 87 MMOL/L (98-107) Carbon Dioxide Level 23 MMOL/L (21-32) 23 MMOL/L (21-32) 21 MMOL/L (21-32) Anion Gap 24 mmol/L (5-15) 19 mmol/L (5-15) 20 mmol/L (5-15) Blood Urea Nitrogen 81 mg/dL (7-18) 81 mg/dL (7-18) 96 mg/dL (7-18) Creatinine 10.6 MG/DL (0.55-1.30) 10.7 MG/DL (0.55-1.30) 11.6 MG/DL (0.55-1.30) Estimat Glomerular Filtration Rate 4.9 mL/min (>60) 4.9 mL/min (>60) 4.4 mL/min (>60) Glucose Level 216 MG/DL (74-106) 379 MG/DL (74-106) 275 MG/DL (74-106) Calcium Level 8.8 MG/DL (8.5-10.1) 7.8 MG/DL (8.5-10.1) 8.4 MG/DL (8.5-10.1) Phosphorus Level 7.8 MG/DL (2.5-4.9) 7.3 MG/DL (2.5-4.9) 8.3 MG/DL (2.5-4.9) Total Bilirubin 0.3 MG/DL (0.2-1.0) 0.3 MG/DL (0.2-1.0) 0.4 MG/DL (0.2-1.0) Direct Bilirubin 0.1 MG/DL (0.0-0.3) Aspartate Amino Transf (AST/SGOT) 25 U/L (15-37) 77 U/L (15-37) 91 U/L (15-37) Alanine Aminotransferase (ALT/SGPT) 9 U/L (12-78) 26 U/L (12-78) 44 U/L (12-78) Alkaline Phosphatase 125 U/L (46-116) 100 U/L (46-116) 88 U/L (46-116) Total Protein 8.0 G/DL (6.4-8.2) 7.4 G/DL (6.4-8.2) 7.7 G/DL (6.4-8.2) Albumin 1.9 G/DL (3.4-5.0) 2.0 G/DL (3.4-5.0) 2.2 G/DL (3.4-5.0) Triglycerides Level 142 MG/DL (30-150) Hypochromasia 1+ Uric Acid 8.0 MG/DL (2.6-7.2) 8.1 MG/DL (2.6-7.2) Magnesium Level 2.3 MG/DL (1.8-2.4) 2.2 MG/DL (1.8-2.4) Gamma Glutamyl Transpeptidase 10 U/L (5-85) Lactate Dehydrogenase 508 U/L (81-234) Total Creatine Kinase 490 U/L (26-308) Troponin I 0.076 ng/mL (0.000-0.056) C-Reactive Protein, Quantitative 28.9 mg/dL (0.00-0.90) 25.2 mg/dL (0.00-0.90) Pro-B-Type Natriuretic Peptide 76687 pg/mL (0-125) 21414 pg/mL (0-125) Globulin 5.4 g/dL 5.5 g/dL Albumin/Globulin Ratio 0.4 (1.0-2.7) 0.4 (1.0-2.7) Arterial Blood pH 7.291 (7.350-7.450) Arterial Blood Partial Pressure CO2 44.4 mmHg (35.0-45.0) Arterial Blood Partial Pressure O2 87.3 mmHg (75.0-100.0) Arterial Blood HCO3 20.9 mmol/L (22.0-26.0) Arterial Blood Oxygen Saturation 95.1 % (95-100) Arterial Blood Base Excess -5.4 (-2-2) Kosta Test Positive Nucleated Red Blood Cells 1 /100 WBC Prothrombin Time 13.2 SEC (9.30-11.50) Prothromb Time International Ratio 1.3 (0.9-1.1) Activated Partial Thromboplast Time 33 SEC (23-33) Test 06/15/19 04:10 White Blood Count 19.2 K/UL (4.8-10.8) Red Blood Count 2.45 M/UL (4.70-6.10) Hemoglobin 7.7 G/DL (14.2-18.0) Hematocrit 22.5 % (42.0-52.0) Mean Corpuscular Volume 92 FL (80-99) Mean Corpuscular Hemoglobin 31.4 PG (27.0-31.0) Mean Corpuscular Hemoglobin Concent 34.2 G/DL (32.0-36.0) Red Cell Distribution Width 16.5 % (11.6-14.8) Platelet Count 111 K/UL (150-450) Mean Platelet Volume 7.0 FL (6.5-10.1) Neutrophils (%) (Auto) % (45.0-75.0) Lymphocytes (%) (Auto) % (20.0-45.0) Monocytes (%) (Auto) % (1.0-10.0) Eosinophils (%) (Auto) % (0.0-3.0) Basophils (%) (Auto) % (0.0-2.0) Height (Feet): 6 Height (Inches): 1.00 Weight (Pounds): 190 Objective Sp02 EP Interpretation: reviewed, normal General: confused, sedated Heent: bilateral eye normal inspection, bilateral eye PERRL ++Ng Respiratory: normal breath sounds, no respiratory distress,intubated+++ Cardiovascular: regular rate, rhythm, no edema Gastrointestinal: normal inspection, soft, non-distended Rectal: deferred Musculoskeletal: normal range of motion, non-tender Neurologic: alert, motor strength/tone normal, sensory intact, responsive, speech normal Skin: Decubitus/Ulcer - See RN skin exam. : jamaal+ Greg Cabral MD June 15, 2019 07:20
[2019-06-15 07:22] LABS: ALANINE AMINOTRANSFERASE 39 U/L (12-78); ALBUMIN 2.3 G/DL (3.4-5.0); ALBUMIN/GLOBULIN RATIO 0.5 (1.0-2.7); ALKALINE PHOSPHATASE 82 U/L (46-116); ANION GAP 16 mmol/L (5-15); ASPARTATE AMINO TRANSFERASE 75 U/L (15-37); BILIRUBIN,TOTAL 0.4 MG/DL (0.2-1.0); BLOOD UREA NITROGEN 62 mg/dL (7-18); CARBON DIOXIDE 25 MMOL/L (21-32); CHLORIDE 93 MMOL/L (98-107); CREATININE 8.7 MG/DL (0.55-1.30); POTASSIUM 4.5 MMOL/L (3.5-5.1); SODIUM 134 MMOL/L (136-145)
[2019-06-15] MEDS: Wixela 100/50 Inhaler - 60 dose INH SCH ×2 (08:26→18:00)
[2019-06-15] MEDS: Docusate 100mg/10ml Liq NG SCH ×3 (09:31→17:10)
[2019-06-15] MEDS: Midodrine 10mg tab NG SCH ×3 (09:31→17:10)
[2019-06-15] MEDS: Pantoprazole Inj IVP SCH ×2 (09:31→20:33)
[2019-06-15] MEDS: Enoxaparin 30mg Inj SUBQ SCH (09:33)
--- NOTE | 2019-06-15 10:03 | Nephrology Progress Note ---
Assessment/Plan Problem List: (1) CASSANDRA (acute kidney injury) (2) Anemia in chronic kidney disease (CKD) (3) HTN (hypertension) (4) COVID-19 Assessment Acute renal failure most likely superimposed on chronic kidney disease Suspected COVID-19 virus infection Possible Pneumonia, lymphopenia, elevated AST Cardiomegaly, possible CHF COPD Hypertension Anemia, most likely related to chronic kidney disease Plan June 5: Blood pressure well maintained Receive dialysis June 13 next hemodialysis June 15June 4: Discussed with RN in ICU Patient did not receive proper dialysis yesterday due to dialysis catheter malfunction Catheter to be adjusted today and dialyzed to be resumed today Continue per consultants Positive for COVID 28 June 2: Patient now intubated on mechanical ventilation Discussed with SHANIQUE Yuen, today June 12 Patient received dialysis yesterday June 10 next hemodialysis June 12 Blood pressure better maintained Today's labs reviewed Continue per consultants Previously patient received dialysis last evening June 05, next dialysis June 07 which was incomplete due to patient's hypotension Will start on midodrine for blood pressure support. Meanwhile continue other pressors as needed Previously Patient is doing poorly, septic, white blood cells are rising, Hypotension somewhat improved We will keep n.p.o. , NG tube for medications, and change medication to IV as needed Patient remains full code Monitor vancomycin level Previously: Patient pulled out his femoral catheter yesterday June 03 which was reinserted by Dr. Mast Patient scheduled for dialysis again June 04, which again was not done due to dialysis nurse citing catheter malfunction Meanwhile continue management per ID, pulmonary , and psych. Meanwhile white blood cell count is rising. Patient blood pressure borderline low. Will check ABG Previously May 31 : I believe patient need dialysis treatment He however needs to competency assessment if can make decisions or not I will communicate with Dr. Mulligan Previously: Per pulmonary and ID advice Adjust blood pressure medication Renal diet Anemia work-up 2D echocardiogram refused Kidney ultrasound refused Jules catheter Urine studies Per orders Subjective ROS Limited/Unobtainable: Yes Objective Objective Last 24 Hour Vital Signs Date Time Temp Pulse Resp B/P (MAP) Pulse Ox O2 Delivery O2 Flow Rate FiO2 06/15/19 08:00 60 06/15/19 08:00 91 26 141/68 (92) 100 06/15/19 07:25 83 26 100 Mechanical Ventilator 50 90 26 50 06/15/19 07:00 83 30 147/73 (97) 99 06/15/19 07:00 147/73 06/15/19 07:00 30 Mechanical Ventilator 60 06/15/19 06:30 86 29 139/69 (92) 99 06/15/19 06:00 99.9 88 29 141/67 (91) 99 06/15/19 06:00 141/67 06/15/19 06:00 29 Mechanical Ventilator 60 06/15/19 05:30 90 30 132/68 (89) 99 06/15/19 05:00 139/68 06/15/19 05:00 31 Mechanical Ventilator 60 06/15/19 05:00 88 31 139/68 (91) 99 06/15/19 04:58 111 26 60 06/15/19 04:30 89 26 138/65 (89) 98 06/15/19 04:12 26 Mechanical Ventilator 60 06/15/19 04:00 Mechanical Ventilator 06/15/19 04:00 109 06/15/19 04:00 130/57 06/15/19 04:00 26 Mechanical Ventilator 60 06/15/19 04:00 101.3 109 26 130/57 (81) 98 06/15/19 04:00 60 06/15/19 03:48 118/58 06/15/19 03:30 112 32 118/58 (78) 99 06/15/19 03:15 101.3 06/15/19 03:00 112/63 06/15/19 03:00 32 Mechanical Ventilator 60 06/15/19 03:00 111 32 112/63 (79) 100 06/15/19 02:31 104 26 100 Mechanical Ventilator 50 109 26 50 06/15/19 02:30 112 29 116/64 (81) 100 06/15/19 02:00 110 26 99/61 (74) 98 06/15/19 02:00 99/61 06/15/19 02:00 26 Mechanical Ventilator 100 06/15/19 01:30 117 26 100/58 (72) 98 06/15/19 01:00 117 28 117/64 (81) 98 06/15/19 01:00 117/64 06/15/19 01:00 26 Mechanical Ventilator 60 06/15/19 00:40 114 26 60 06/15/19 00:30 115 28 114/64 (81) 98 5/5/20 00:00 116 06/15/19 00:00 119/64 06/15/19 00:00 27 Mechanical Ventilator 60 06/15/19 00:00 118 27 119/64 (82) 98 06/15/19 00:00 60 06/15/19 00:00 Mechanical Ventilator 06/14/19 23:30 116 26 121/61 (81) 98 06/14/19 23:00 122 29 123/66 (85) 98 06/14/19 23:00 123/66 06/14/19 23:00 29 Mechanical Ventilator 60 06/14/19 22:30 119 27 121/66 (84) 100 06/14/19 22:30 109 26 100 Mechanical Ventilator 50 112 26 60 06/14/19 22:00 126/73 06/14/19 22:00 24 Mechanical Ventilator 60 06/14/19 22:00 111 24 126/73 (90) 100 06/14/19 21:30 116 22 135/67 (89) 100 06/14/19 21:14 111 26 60 06/14/19 21:00 115 25 127/65 (85) 100 06/14/19 21:00 122/64 06/14/19 21:00 26 Mechanical Ventilator 60 06/14/19 20:30 120 27 118/65 (82) 100 06/14/19 20:13 126 26 100 Mechanical Ventilator 60 122 27 60 06/14/19 20:00 118/59 06/14/19 20:00 27 Mechanical Ventilator 60 06/14/19 20:00 Mechanical Ventilator 06/14/19 20:00 122 06/14/19 20:00 60 06/14/19 20:00 101.1 123 26 118/59 (78) 99 06/14/19 19:30 124 26 125/68 (87) 100 06/14/19 19:00 122 32 149/77 (101) 99 06/14/19 18:40 115 06/14/19 18:40 116/62 06/14/19 18:30 126 26 116/62 (80) 97 06/14/19 18:00 127 26 160/69 (99) 98 06/14/19 17:30 123 26 115/59 (77) 98 06/14/19 17:00 85 28 140/64 (89) 99 06/14/19 16:30 84 28 146/72 (96) 99 06/14/19 16:00 Mechanical Ventilator 06/14/19 16:00 77 06/14/19 16:00 99.6 81 29 117/59 (78) 99 06/14/19 16:00 60 06/14/19 15:49 28 Mechanical Ventilator 60 06/14/19 15:30 77 26 110/55 (73) 97 06/14/19 15:00 82 26 116/58 (77) 96 06/14/19 14:30 83 29 107/54 (71) 97 06/14/19 14:00 84 30 114/64 (81) 96 06/14/19 13:30 82 30 117/60 (79) 97 06/14/19 13:00 81 29 106/57 (73) 97 06/14/19 12:30 84 26 100/58 (72) 96 06/14/19 12:00 Mechanical Ventilator 06/14/19 12:00 89 06/14/19 12:00 60 06/14/19 12:00 99.2 85 26 94/58 (70) 94 06/14/19 11:30 89 26 82/47 (59) 92 06/14/19 11:00 76 31 96/56 (69) 98 06/14/19 10:37 77 27 60 06/14/19 10:30 77 32 99/58 (72) 98 Intake and Output 06/14/19 06/15/19 19:00 07:00 Intake Total 1104.085 ml 724.24 ml Output Total 0 ml 15 ml Balance 1104.085 ml 709.24 ml Free Water 40 ml IV Total 1044.085 ml 564.24 ml Tube Feeding 60 ml 120 ml Output Urine Total 0 ml 15 ml Laboratory Tests 06/15/19 04:00: Urine Eosinophils [Pending] 06/15/19 04:10: White Blood Count 19.2H, Red Blood Count 2.45L, Hemoglobin 7.7L, Hematocrit 22.5L, Mean Corpuscular Volume 92, Mean Corpuscular Hemoglobin 31.4H, Mean Corpuscular Hemoglobin Concent 34.2, Red Cell Distribution Width 16.5H, Platelet Count 111L, Mean Platelet Volume 7.0, Neutrophils (%) (Auto) , Lymphocytes (%) (Auto) , Monocytes (%) (Auto) , Eosinophils (%) (Auto) , Basophils (%) (Auto) , Differential Total Cells Counted 100, Neutrophils % ( Manual) 82H, Lymphocytes % (Manual) 4L, Monocytes % (Manual) 14H, Eosinophils % (Manual) 0, Basophils % (Manual) 0, Band Neutrophils 0, Nucleated Red Blood Cells 2, Platelet Estimate DecreasedL, Platelet Morphology Normal, Hypochromasia 3+, Anisocytosis 1+, Spherocytes 1+, Sodium Level 134L, Potassium Level 4.5, Chloride Level 93L, Carbon Dioxide Level 25, Anion Gap 16H, Blood Urea Nitrogen 62H, Creatinine 8.7H, Estimat Glomerular Filtration Rate 6.2, Glucose Level 251H, Uric Acid 5.3, Calcium Level 8.0L, Phosphorus Level 6.0H, Magnesium Level 2.1, Total Bilirubin 0.4, Gamma Glutamyl Transpeptidase 12, Aspartate Amino Transf (AST/SGOT) 75H, Alanine Aminotransferase (ALT/SGPT) 39, Alkaline Phosphatase 82, C-Reactive Protein, Quantitative 20.6H, Pro-B-Type Natriuretic Peptide 70475W, Total Protein 6.9, Albumin 2.3L, Globulin 4.6, Albumin/Globulin Ratio 0.5L, Random Vancomycin Level 22.0 Height (Feet): 6 Height (Inches): 1.00 Weight (Pounds): 190 General Appearance: no apparent distress EENT: other - Remains intubated on ventilator Cardiovascular: tachycardia Respiratory/Chest: decreased breath sounds Abdomen: soft Objective No change Mic Cole MD June 15, 2019 10:03
[2019-06-15] MEDS: Vasopressin 100 UNITS in NS 95 ML IV SCH (11:08)
--- NOTE | 2019-06-15 11:36 | Cardiac Electrophysiology PN ---
Assessment/Plan Assessment/Plan 1. Elevated troponin. Troponin on May 27 and May 30 were negative; however , on June 01, it was elevated at 0.074. Repeat 0.05. No chest pain. Due to renal failure. On Aspirin. Echo EF 60 % 2. Septic shock. On Levo and Vaso 3. End-stage renal disease, on hemodialysis per Dr. Cole. 4. Respiratory failure due to COVID-19 positive pneumonia. On the Vent with60% fio2. Fu by Dr. Ted Leyva and Dr. Mckeon. 5. MRSA carrier. 6. COPD. 7. Anemia. 8. Depression. DW RN Subjective Subjective In Covid isolation in ICU, intubated on 60% Fio2. In SR. S/P 2 units of PRBC and HD . On Levophed 20 and Vasopressin. On fentanyl drip Objective Last 24 Hour Vital Signs Date Time Temp Pulse Resp B/P (MAP) Pulse Ox O2 Delivery O2 Flow Rate FiO2 06/15/19 11:00 73 26 181/76 (111) 100 06/15/19 10:30 72 26 166/69 (101) 97 06/15/19 10:00 75 26 66/41 (49) 100 06/15/19 09:30 76 27 156/85 (108) 99 06/15/19 09:00 99.8 77 25 148/75 (99) 99 06/15/19 08:00 60 06/15/19 08:00 91 26 141/68 (92) 100 06/15/19 07:25 83 26 100 Mechanical Ventilator 50 90 26 50 06/15/19 07:00 83 30 147/73 (97) 99 06/15/19 07:00 147/73 06/15/19 07:00 30 Mechanical Ventilator 60 06/15/19 06:30 86 29 139/69 (92) 99 06/15/19 06:00 99.9 88 29 141/67 (91) 99 06/15/19 06:00 141/67 06/15/19 06:00 29 Mechanical Ventilator 60 06/15/19 05:30 90 30 132/68 (89) 99 06/15/19 05:00 139/68 06/15/19 05:00 31 Mechanical Ventilator 60 06/15/19 05:00 88 31 139/68 (91) 99 06/15/19 04:58 111 26 60 5/5/20 04:30 89 26 138/65 (89) 98 06/15/19 04:12 26 Mechanical Ventilator 60 06/15/19 04:00 Mechanical Ventilator 06/15/19 04:00 109 06/15/19 04:00 130/57 06/15/19 04:00 26 Mechanical Ventilator 60 06/15/19 04:00 101.3 109 26 130/57 (81) 98 06/15/19 04:00 60 06/15/19 03:48 118/58 06/15/19 03:30 112 32 118/58 (78) 99 06/15/19 03:15 101.3 06/15/19 03:00 112/63 06/15/19 03:00 32 Mechanical Ventilator 60 06/15/19 03:00 111 32 112/63 (79) 100 06/15/19 02:31 104 26 100 Mechanical Ventilator 50 109 26 50 06/15/19 02:30 112 29 116/64 (81) 100 06/15/19 02:00 110 26 99/61 (74) 98 06/15/19 02:00 99/61 06/15/19 02:00 26 Mechanical Ventilator 100 06/15/19 01:30 117 26 100/58 (72) 98 06/15/19 01:00 117 28 117/64 (81) 98 06/15/19 01:00 117/64 06/15/19 01:00 26 Mechanical Ventilator 60 06/15/19 00:40 114 26 60 06/15/19 00:30 115 28 114/64 (81) 98 06/15/19 00:00 116 06/15/19 00:00 119/64 06/15/19 00:00 27 Mechanical Ventilator 60 06/15/19 00:00 118 27 119/64 (82) 98 06/15/19 00:00 60 06/15/19 00:00 Mechanical Ventilator 06/14/19 23:30 116 26 121/61 (81) 98 06/14/19 23:00 122 29 123/66 (85) 98 06/14/19 23:00 123/66 06/14/19 23:00 29 Mechanical Ventilator 60 06/14/19 22:30 119 27 121/66 (84) 100 06/14/19 22:30 109 26 100 Mechanical Ventilator 50 112 26 60 06/14/19 22:00 126/73 06/14/19 22:00 24 Mechanical Ventilator 60 06/14/19 22:00 111 24 126/73 (90) 100 06/14/19 21:30 116 22 135/67 (89) 100 06/14/19 21:14 111 26 60 06/14/19 21:00 115 25 127/65 (85) 100 06/14/19 21:00 122/64 06/14/19 21:00 26 Mechanical Ventilator 60 06/14/19 20:30 120 27 118/65 (82) 100 06/14/19 20:13 126 26 100 Mechanical Ventilator 60 122 27 60 06/14/19 20:00 118/59 06/14/19 20:00 27 Mechanical Ventilator 60 06/14/19 20:00 Mechanical Ventilator 06/14/19 20:00 122 06/14/19 20:00 60 06/14/19 20:00 101.1 123 26 118/59 (78) 99 06/14/19 19:30 124 26 125/68 (87) 100 06/14/19 19:00 122 32 149/77 (101) 99 06/14/19 18:40 115 06/14/19 18:40 116/62 06/14/19 18:30 126 26 116/62 (80) 97 06/14/19 18:00 127 26 160/69 (99) 98 06/14/19 17:30 123 26 115/59 (77) 98 06/14/19 17:00 85 28 140/64 (89) 99 06/14/19 16:30 84 28 146/72 (96) 99 06/14/19 16:00 Mechanical Ventilator 06/14/19 16:00 77 06/14/19 16:00 99.6 81 29 117/59 (78) 99 06/14/19 16:00 60 06/14/19 15:49 28 Mechanical Ventilator 60 06/14/19 15:30 77 26 110/55 (73) 97 06/14/19 15:00 82 26 116/58 (77) 96 06/14/19 14:30 83 29 107/54 (71) 97 06/14/19 14:00 84 30 114/64 (81) 96 06/14/19 13:30 82 30 117/60 (79) 97 06/14/19 13:00 81 29 106/57 (73) 97 06/14/19 12:30 84 26 100/58 (72) 96 06/14/19 12:00 Mechanical Ventilator 06/14/19 12:00 89 06/14/19 12:00 60 06/14/19 12:00 99.2 85 26 94/58 (70) 94 Intake and Output 06/14/19 06/15/19 19:00 07:00 Intake Total 1104.085 ml 724.24 ml Output Total 0 ml 15 ml Balance 1104.085 ml 709.24 ml Free Water 40 ml IV Total 1044.085 ml 564.24 ml Tube Feeding 60 ml 120 ml Output Urine Total 0 ml 15 ml Laboratory Tests Test 06/15/19 04:00 06/15/19 04:10 Urine Eosinophils None seen (NONE SEEN) White Blood Count 19.2 K/UL (4.8-10.8) H Red Blood Count 2.45 M/UL (4.70-6.10) L Hemoglobin 7.7 G/DL (14.2-18.0) L Hematocrit 22.5 % (42.0-52.0) L Mean Corpuscular Volume 92 FL (80-99) Mean Corpuscular Hemoglobin 31.4 PG (27.0-31.0) H Mean Corpuscular Hemoglobin Concent 34.2 G/DL (32.0-36.0) Red Cell Distribution Width 16.5 % (11.6-14.8) H Platelet Count 111 K/UL (150-450) L Mean Platelet Volume 7.0 FL (6.5-10.1) Neutrophils (%) (Auto) % (45.0-75.0) Lymphocytes (%) (Auto) % (20.0-45.0) Monocytes (%) (Auto) % (1.0-10.0) Eosinophils (%) (Auto) % (0.0-3.0) Basophils (%) (Auto) % (0.0-2.0) Differential Total Cells Counted 100 Neutrophils % (Manual) 82 % (45-75) H Lymphocytes % (Manual) 4 % (20-45) L Monocytes % (Manual) 14 % (1-10) H Eosinophils % (Manual) 0 % (0-3) Basophils % (Manual) 0 % (0-2) Band Neutrophils 0 % (0-8) Nucleated Red Blood Cells 2 /100 WBC Platelet Estimate Decreased L Platelet Morphology Normal Hypochromasia 3+ Anisocytosis 1+ Spherocytes 1+ Sodium Level 134 MMOL/L (136-145) L Potassium Level 4.5 MMOL/L (3.5-5.1) Chloride Level 93 MMOL/L (98-107) L Carbon Dioxide Level 25 MMOL/L (21-32) Anion Gap 16 mmol/L (5-15) H Blood Urea Nitrogen 62 mg/dL (7-18) H Creatinine 8.7 MG/DL (0.55-1.30) H Estimat Glomerular Filtration Rate 6.2 mL/min (>60) Glucose Level 251 MG/DL (74-106) H Uric Acid 5.3 MG/DL (2.6-7.2) Calcium Level 8.0 MG/DL (8.5-10.1) L Phosphorus Level 6.0 MG/DL (2.5-4.9) H Magnesium Level 2.1 MG/DL (1.8-2.4) Total Bilirubin 0.4 MG/DL (0.2-1.0) Gamma Glutamyl Transpeptidase 12 U/L (5-85) Aspartate Amino Transf (AST/SGOT) 75 U/L (15-37) H Alanine Aminotransferase (ALT/SGPT) 39 U/L (12-78) Alkaline Phosphatase 82 U/L (46-116) C-Reactive Protein, Quantitative 20.6 mg/dL (0.00-0.90) H Pro-B-Type Natriuretic Peptide 85553 pg/mL (0-125) H Total Protein 6.9 G/DL (6.4-8.2) Albumin 2.3 G/DL (3.4-5.0) L Globulin 4.6 g/dL Albumin/Globulin Ratio 0.5 (1.0-2.7) L Random Vancomycin Level 22.0 ug/mL Microbiology Date/Time Source Procedure Growth Status 06/14/19 14:20 Sputum Gram Stain - Final Resulted 06/14/19 14:20 Sputum Sputum Culture Pending Resulted Objective HEAD AND NECK: No JVD.Orally intubated LUNGS: Decreased breath sounds. CARDIOVASCULAR: Regular S1 and S2. Tachycardic. ABDOMEN: Soft. EXTREMITIES: No pitting edema. New Left FV Gio Engle MD June 15, 2019 11:36
--- NOTE | 2019-06-15 13:26 | Infectious Diseases Prog Note ---
Assessment/Plan Assessment/Plan IMPRESSION: 1. COVID19 pneumonia Positive: 05/27, 05/31 , 06/05, 06/09 2. MRSA carrier. 3. Chronic kidney disease , end-stage renal disease. 4. COPD. 5. Hypertension. 6. Anemia. 7. Hypothyroidism. 8. Hyperlipidemia. 9. Major depression. 10. Leukocytosis 11. Hypotension 12. Hepatitis C 13. Hyperuricemia 14. Diarrhea 15. septic shock RECOMMENDATIONS: Continue Vancomycin & Zosyn Poor prognosis Finished hydroxychloroquine. Will f/u COVID19 test Subjective ROS Limited/Unobtainable: Yes Constitutional: Reports: fever Allergies: Coded Allergies: No Known Allergies (Unverified , 05/28/19) Objective Vital Signs Last 24 Hour Vital Signs Date Time Temp Pulse Resp B/P (MAP) Pulse Ox O2 Delivery O2 Flow Rate FiO2 06/15/19 12:02 75 26 130/69 (89) 98 06/15/19 12:00 73 06/15/19 12:00 60 06/15/19 12:00 132/72 06/15/19 12:00 28 Mechanical Ventilator 60 06/15/19 11:22 71 31 50 06/15/19 11:08 130/76 06/15/19 11:08 26 Mechanical Ventilator 60 06/15/19 11:00 73 26 181/76 (111) 100 06/15/19 11:00 181/76 06/15/19 11:00 Mechanical Ventilator 60 06/15/19 10:30 72 26 166/69 (101) 97 06/15/19 10:00 75 26 66/41 (49) 100 06/15/19 10:00 66/41 06/15/19 10:00 27 Mechanical Ventilator 60 06/15/19 09:30 76 27 156/85 (108) 99 06/15/19 09:00 148/75 06/15/19 09:00 29 Mechanical Ventilator 60 06/15/19 09:00 99.8 77 25 148/75 (99) 99 06/15/19 08:00 60 06/15/19 08:00 80 06/15/19 08:00 141/68 06/15/19 08:00 26 Mechanical Ventilator 60 06/15/19 08:00 91 26 141/68 (92) 100 06/15/19 07:25 83 26 100 Mechanical Ventilator 50 90 26 50 06/15/19 07:00 83 30 147/73 (97) 99 06/15/19 07:00 147/73 06/15/19 07:00 30 Mechanical Ventilator 60 06/15/19 06:30 86 29 139/69 (92) 99 06/15/19 06:00 99.9 88 29 141/67 (91) 99 06/15/19 06:00 141/67 06/15/19 06:00 29 Mechanical Ventilator 60 06/15/19 05:30 90 30 132/68 (89) 99 06/15/19 05:00 139/68 06/15/19 05:00 31 Mechanical Ventilator 60 06/15/19 05:00 88 31 139/68 (91) 99 06/15/19 04:58 111 26 60 06/15/19 04:30 89 26 138/65 (89) 98 06/15/19 04:12 26 Mechanical Ventilator 60 06/15/19 04:00 Mechanical Ventilator 06/15/19 04:00 109 06/15/19 04:00 130/57 06/15/19 04:00 26 Mechanical Ventilator 60 06/15/19 04:00 101.3 109 26 130/57 (81) 98 06/15/19 04:00 60 06/15/19 03:48 118/58 06/15/19 03:30 112 32 118/58 (78) 99 06/15/19 03:15 101.3 06/15/19 03:00 112/63 06/15/19 03:00 32 Mechanical Ventilator 60 06/15/19 03:00 111 32 112/63 (79) 100 06/15/19 02:31 104 26 100 Mechanical Ventilator 50 109 26 50 06/15/19 02:30 112 29 116/64 (81) 100 06/15/19 02:00 110 26 99/61 (74) 98 06/15/19 02:00 99/61 06/15/19 02:00 26 Mechanical Ventilator 100 06/15/19 01:30 117 26 100/58 (72) 98 06/15/19 01:00 117 28 117/64 (81) 98 06/15/19 01:00 117/64 06/15/19 01:00 26 Mechanical Ventilator 60 06/15/19 00:40 114 26 60 06/15/19 00:30 115 28 114/64 (81) 98 06/15/19 00:00 116 06/15/19 00:00 119/64 06/15/19 00:00 27 Mechanical Ventilator 60 06/15/19 00:00 118 27 119/64 (82) 98 06/15/19 00:00 60 06/15/19 00:00 Mechanical Ventilator 06/14/19 23:30 116 26 121/61 (81) 98 06/14/19 23:00 122 29 123/66 (85) 98 06/14/19 23:00 123/66 06/14/19 23:00 29 Mechanical Ventilator 60 06/14/19 22:30 119 27 121/66 (84) 100 06/14/19 22:30 109 26 100 Mechanical Ventilator 50 112 26 60 06/14/19 22:00 126/73 06/14/19 22:00 24 Mechanical Ventilator 60 06/14/19 22:00 111 24 126/73 (90) 100 06/14/19 21:30 116 22 135/67 (89) 100 06/14/19 21:14 111 26 60 06/14/19 21:00 115 25 127/65 (85) 100 06/14/19 21:00 122/64 06/14/19 21:00 26 Mechanical Ventilator 60 06/14/19 20:30 120 27 118/65 (82) 100 06/14/19 20:13 126 26 100 Mechanical Ventilator 60 122 27 60 06/14/19 20:00 118/59 06/14/19 20:00 27 Mechanical Ventilator 60 06/14/19 20:00 Mechanical Ventilator 06/14/19 20:00 122 06/14/19 20:00 60 06/14/19 20:00 101.1 123 26 118/59 (78) 99 06/14/19 19:30 124 26 125/68 (87) 100 06/14/19 19:00 122 32 149/77 (101) 99 06/14/19 18:40 115 06/14/19 18:40 116/62 06/14/19 18:30 126 26 116/62 (80) 97 06/14/19 18:00 127 26 160/69 (99) 98 06/14/19 17:30 123 26 115/59 (77) 98 06/14/19 17:00 85 28 140/64 (89) 99 06/14/19 16:30 84 28 146/72 (96) 99 06/14/19 16:00 Mechanical Ventilator 06/14/19 16:00 77 06/14/19 16:00 99.6 81 29 117/59 (78) 99 06/14/19 16:00 60 06/14/19 15:49 28 Mechanical Ventilator 60 06/14/19 15:30 77 26 110/55 (73) 97 06/14/19 15:00 82 26 116/58 (77) 96 06/14/19 14:30 83 29 107/54 (71) 97 06/14/19 14:00 84 30 114/64 (81) 96 06/14/19 13:30 82 30 117/60 (79) 97 Height (Feet): 6 Height (Inches): 1.00 Weight (Pounds): 190 HEENT: other - orlly intubated Respiratory/Chest: other Cardiovascular: normal rate, other - HD line Abdomen: soft, non tender, other - NG tube Extremities: no edema Neurologic/Psychiatric: unresponsiveness Microbiology Date/Time Source Procedure Growth Status 06/14/19 14:20 Sputum Gram Stain - Final Resulted 06/14/19 14:20 Sputum Sputum Culture Pending Resulted Laboratory Tests Test 06/15/19 04:00 06/15/19 04:10 Urine Eosinophils None seen (NONE SEEN) White Blood Count 19.2 K/UL (4.8-10.8) H Red Blood Count 2.45 M/UL (4.70-6.10) L Hemoglobin 7.7 G/DL (14.2-18.0) L Hematocrit 22.5 % (42.0-52.0) L Mean Corpuscular Volume 92 FL (80-99) Mean Corpuscular Hemoglobin 31.4 PG (27.0-31.0) H Mean Corpuscular Hemoglobin Concent 34.2 G/DL (32.0-36.0) Red Cell Distribution Width 16.5 % (11.6-14.8) H Platelet Count 111 K/UL (150-450) L Mean Platelet Volume 7.0 FL (6.5-10.1) Neutrophils (%) (Auto) % (45.0-75.0) Lymphocytes (%) (Auto) % (20.0-45.0) Monocytes (%) (Auto) % (1.0-10.0) Eosinophils (%) (Auto) % (0.0-3.0) Basophils (%) (Auto) % (0.0-2.0) Differential Total Cells Counted 100 Neutrophils % (Manual) 82 % (45-75) H Lymphocytes % (Manual) 4 % (20-45) L Monocytes % (Manual) 14 % (1-10) H Eosinophils % (Manual) 0 % (0-3) Basophils % (Manual) 0 % (0-2) Band Neutrophils 0 % (0-8) Nucleated Red Blood Cells 2 /100 WBC Platelet Estimate Decreased L Platelet Morphology Normal Hypochromasia 3+ Anisocytosis 1+ Spherocytes 1+ Sodium Level 134 MMOL/L (136-145) L Potassium Level 4.5 MMOL/L (3.5-5.1) Chloride Level 93 MMOL/L (98-107) L Carbon Dioxide Level 25 MMOL/L (21-32) Anion Gap 16 mmol/L (5-15) H Blood Urea Nitrogen 62 mg/dL (7-18) H Creatinine 8.7 MG/DL (0.55-1.30) H Estimat Glomerular Filtration Rate 6.2 mL/min (>60) Glucose Level 251 MG/DL (74-106) H Uric Acid 5.3 MG/DL (2.6-7.2) Calcium Level 8.0 MG/DL (8.5-10.1) L Phosphorus Level 6.0 MG/DL (2.5-4.9) H Magnesium Level 2.1 MG/DL (1.8-2.4) Total Bilirubin 0.4 MG/DL (0.2-1.0) Gamma Glutamyl Transpeptidase 12 U/L (5-85) Aspartate Amino Transf (AST/SGOT) 75 U/L (15-37) H Alanine Aminotransferase (ALT/SGPT) 39 U/L (12-78) Alkaline Phosphatase 82 U/L (46-116) C-Reactive Protein, Quantitative 20.6 mg/dL (0.00-0.90) H Pro-B-Type Natriuretic Peptide 30715 pg/mL (0-125) H Total Protein 6.9 G/DL (6.4-8.2) Albumin 2.3 G/DL (3.4-5.0) L Globulin 4.6 g/dL Albumin/Globulin Ratio 0.5 (1.0-2.7) L Random Vancomycin Level 22.0 ug/mL Current Medications Medications (Trade) Dose Ordered Sig/Anthony Route PRN Reason Start Time Stop Time Status Last Admin Dose Admin Acetaminophen (Tylenol) 650 mg Q4H PRN NG Temp >100.5 06/13/19 11:00 07/13/19 10:59 06/15/19 02:45 Albuterol Sulfate (Proventil MDI) 2 puff Q4HRT INH 06/06/19 23:00 08/30/19 18:59 06/15/19 07:00 Allopurinol (allopurinoL) 300 mg DAILY NG 06/08/19 09:30 07/08/19 09:29 06/15/19 09:32 Chlorhexidine Gluconate (Michelle-Hex 2%) 1 applic DAILY@2000 TOPIC 06/07/19 20:00 09/05/19 19:59 06/14/19 20:57 Docusate Sodium (Colace) 100 mg THREE TIMES A DAY NG 06/07/19 13:00 07/07/19 12:59 06/15/19 13:12 Dopamine HCl/ Dextrose 250 ml @ 0 mls/hr Q24H PRN IV For hypotension 06/13/19 08:15 09/11/19 08:14 Enoxaparin Sodium (Lovenox) 30 mg DAILY SUBQ 06/07/19 09:00 08/27/19 08:59 06/15/19 09:33 Epoetin Aftab (Epoetin Aftab(ESRD on dialysis)) 10,000 unit FRI-FRI-FRI SUBQ 06/07/19 21:00 08/31/19 20:59 06/14/19 20:58 Fentanyl Citrate 2500 mcg/Sodium Chloride 250 ml @ 0 mls/hr Q24H IV 06/13/19 07:00 06/20/19 06:59 06/15/19 04:12 Hydralazine HCl (Apresoline) 10 mg Q4H PRN IV Blood pressure over 160 systol 06/07/19 10:15 09/05/19 10:14 Midodrine (Pro-Amatine) 10 mg THREE TIMES A DAY NG 06/09/19 13:00 09/07/19 12:59 06/15/19 13:12 Norepinephrine Bitartrate 16 mg/ Dextrose 566 ml @ 0 mls/hr Q24H IV 06/13/19 09:45 07/13/19 09:44 06/15/19 03:48 Pantoprazole (Protonix) 40 mg Q12HR IVP 06/07/19 21:00 07/07/19 08:59 06/15/19 09:31 Piperacillin Sod/ Tazobactam Sod 2.25 gm/Dextrose 55 ml @ 110 mls/hr Q8HR IVPB 06/13/19 14:00 06/18/19 13:59 06/15/19 13:12 Salmeterol Xinafoate/ Fluticasone (Advair 100/50 Diskus) 1 puffs BID INH 06/07/19 09:00 08/27/19 08:59 06/11/19 09:14 Sevelamer Carbonate (Renvela) 1,600 mg Q6HR NG 06/14/19 12:00 09/05/19 12:59 06/15/19 13:12 Vancomycin HCl (Vanco rx to dose) 1 ea DAILY PRN MISC Per rx protocol 06/13/19 11:45 07/13/19 11:44 Vancomycin HCl 1 gm/Sodium Chloride 275 ml @ 183.708 mls/hr ONCE IVPB 06/16/19 09:00 06/16/19 10:00 Vasopressin 100 units/Sodium Chloride 100 ml @ 0 mls/hr Q24H IV 06/12/19 11:00 07/12/19 10:59 06/15/19 11:08 Ted Leyva MD June 15, 2019 13:26
--- NOTE | 2019-06-15 16:27 | Surgery Progress Note ---
Surgery Progress Note Subjective Procedure Performed Right femoral temporary hemodialysis catheter insertion Additional Comments on levo and vaso had successful HD yesterday wbc trending down ill appearing Objective Last 24 Hour Vital Signs Date Time Temp Pulse Resp B/P (MAP) Pulse Ox O2 Delivery O2 Flow Rate FiO2 06/15/19 15:30 60 26 92/49 (63) 100 06/15/19 15:30 65 25 71/47 (55) 100 06/15/19 15:00 67 27 126/67 (86) 100 06/15/19 15:00 126/67 06/15/19 15:00 26 Mechanical Ventilator 60 06/15/19 15:00 64 28 126/67 (86) 100 06/15/19 14:30 68 27 103/58 (73) 100 06/15/19 14:30 66 26 103/58 (73) 100 06/15/19 14:00 70 26 91/52 (65) 98 06/15/19 14:00 126/67 06/15/19 14:00 26 Mechanical Ventilator 60 06/15/19 13:30 73 26 95/53 (67) 99 06/15/19 13:00 70 26 91/52 (65) 99 06/15/19 13:00 93/63 06/15/19 13:00 26 Mechanical Ventilator 60 06/15/19 12:02 75 26 130/69 (89) 98 06/15/19 12:00 73 06/15/19 12:00 60 06/15/19 12:00 132/72 06/15/19 12:00 28 Mechanical Ventilator 60 06/15/19 11:22 71 31 50 06/15/19 11:08 130/76 06/15/19 11:08 26 Mechanical Ventilator 60 06/15/19 11:00 73 26 181/76 (111) 100 06/15/19 11:00 181/76 06/15/19 11:00 Mechanical Ventilator 60 06/15/19 10:30 72 26 166/69 (101) 97 06/15/19 10:00 75 26 66/41 (49) 100 06/15/19 10:00 66/41 06/15/19 10:00 27 Mechanical Ventilator 60 06/15/19 09:30 76 27 156/85 (108) 99 06/15/19 09:00 148/75 06/15/19 09:00 29 Mechanical Ventilator 60 06/15/19 09:00 99.8 77 25 148/75 (99) 99 06/15/19 08:00 60 06/15/19 08:00 80 06/15/19 08:00 141/68 06/15/19 08:00 26 Mechanical Ventilator 60 06/15/19 08:00 91 26 141/68 (92) 100 06/15/19 07:25 83 26 100 Mechanical Ventilator 50 90 26 50 06/15/19 07:00 83 30 147/73 (97) 99 06/15/19 07:00 147/73 06/15/19 07:00 30 Mechanical Ventilator 60 06/15/19 06:30 86 29 139/69 (92) 99 06/15/19 06:00 99.9 88 29 141/67 (91) 99 06/15/19 06:00 141/67 06/15/19 06:00 29 Mechanical Ventilator 60 06/15/19 05:30 90 30 132/68 (89) 99 06/15/19 05:00 139/68 06/15/19 05:00 31 Mechanical Ventilator 60 06/15/19 05:00 88 31 139/68 (91) 99 06/15/19 04:58 111 26 60 06/15/19 04:30 89 26 138/65 (89) 98 06/15/19 04:12 26 Mechanical Ventilator 60 06/15/19 04:00 Mechanical Ventilator 06/15/19 04:00 109 06/15/19 04:00 130/57 06/15/19 04:00 26 Mechanical Ventilator 60 06/15/19 04:00 101.3 109 26 130/57 (81) 98 06/15/19 04:00 60 06/15/19 03:48 118/58 06/15/19 03:30 112 32 118/58 (78) 99 06/15/19 03:15 101.3 06/15/19 03:00 112/63 06/15/19 03:00 32 Mechanical Ventilator 60 06/15/19 03:00 111 32 112/63 (79) 100 06/15/19 02:31 104 26 100 Mechanical Ventilator 50 109 26 50 06/15/19 02:30 112 29 116/64 (81) 100 06/15/19 02:00 110 26 99/61 (74) 98 06/15/19 02:00 99/61 06/15/19 02:00 26 Mechanical Ventilator 100 06/15/19 01:30 117 26 100/58 (72) 98 06/15/19 01:00 117 28 117/64 (81) 98 06/15/19 01:00 117/64 06/15/19 01:00 26 Mechanical Ventilator 60 06/15/19 00:40 114 26 60 06/15/19 00:30 115 28 114/64 (81) 98 06/15/19 00:00 116 06/15/19 00:00 119/64 06/15/19 00:00 27 Mechanical Ventilator 60 06/15/19 00:00 118 27 119/64 (82) 98 06/15/19 00:00 60 06/15/19 00:00 Mechanical Ventilator 06/14/19 23:30 116 26 121/61 (81) 98 06/14/19 23:00 122 29 123/66 (85) 98 06/14/19 23:00 123/66 06/14/19 23:00 29 Mechanical Ventilator 60 06/14/19 22:30 119 27 121/66 (84) 100 06/14/19 22:30 109 26 100 Mechanical Ventilator 50 112 26 60 06/14/19 22:00 126/73 06/14/19 22:00 24 Mechanical Ventilator 60 06/14/19 22:00 111 24 126/73 (90) 100 06/14/19 21:30 116 22 135/67 (89) 100 06/14/19 21:14 111 26 60 06/14/19 21:00 115 25 127/65 (85) 100 06/14/19 21:00 122/64 06/14/19 21:00 26 Mechanical Ventilator 60 06/14/19 20:30 120 27 118/65 (82) 100 06/14/19 20:13 126 26 100 Mechanical Ventilator 60 122 27 60 06/14/19 20:00 118/59 06/14/19 20:00 27 Mechanical Ventilator 60 06/14/19 20:00 Mechanical Ventilator 06/14/19 20:00 122 06/14/19 20:00 60 06/14/19 20:00 101.1 123 26 118/59 (78) 99 06/14/19 19:30 124 26 125/68 (87) 100 06/14/19 19:00 122 32 149/77 (101) 99 06/14/19 18:40 115 06/14/19 18:40 116/62 06/14/19 18:30 126 26 116/62 (80) 97 06/14/19 18:00 127 26 160/69 (99) 98 06/14/19 17:30 123 26 115/59 (77) 98 06/14/19 17:00 85 28 140/64 (89) 99 06/14/19 16:30 84 28 146/72 (96) 99 I&O Intake and Output 06/14/19 06/15/19 19:00 07:00 Intake Total 1104.085 ml 724.24 ml Output Total 0 ml 15 ml Balance 1104.085 ml 709.24 ml Free Water 40 ml IV Total 1044.085 ml 564.24 ml Tube Feeding 60 ml 120 ml Output Urine Total 0 ml 15 ml Dressing: other Wound: other Drains: other Cardiovascular: RSR Respiratory: decreased breath sounds Abdomen: soft, non-tender, present bowel sounds Extremities: no cyanosis, other Laboratory Tests Test 06/15/19 04:00 06/15/19 04:10 Urine Eosinophils None seen (NONE SEEN) White Blood Count 19.2 K/UL (4.8-10.8) H Red Blood Count 2.45 M/UL (4.70-6.10) L Hemoglobin 7.7 G/DL (14.2-18.0) L Hematocrit 22.5 % (42.0-52.0) L Mean Corpuscular Volume 92 FL (80-99) Mean Corpuscular Hemoglobin 31.4 PG (27.0-31.0) H Mean Corpuscular Hemoglobin Concent 34.2 G/DL (32.0-36.0) Red Cell Distribution Width 16.5 % (11.6-14.8) H Platelet Count 111 K/UL (150-450) L Mean Platelet Volume 7.0 FL (6.5-10.1) Neutrophils (%) (Auto) % (45.0-75.0) Lymphocytes (%) (Auto) % (20.0-45.0) Monocytes (%) (Auto) % (1.0-10.0) Eosinophils (%) (Auto) % (0.0-3.0) Basophils (%) (Auto) % (0.0-2.0) Differential Total Cells Counted 100 Neutrophils % (Manual) 82 % (45-75) H Lymphocytes % (Manual) 4 % (20-45) L Monocytes % (Manual) 14 % (1-10) H Eosinophils % (Manual) 0 % (0-3) Basophils % (Manual) 0 % (0-2) Band Neutrophils 0 % (0-8) Nucleated Red Blood Cells 2 /100 WBC Platelet Estimate Decreased L Platelet Morphology Normal Hypochromasia 3+ Anisocytosis 1+ Spherocytes 1+ Sodium Level 134 MMOL/L (136-145) L Potassium Level 4.5 MMOL/L (3.5-5.1) Chloride Level 93 MMOL/L (98-107) L Carbon Dioxide Level 25 MMOL/L (21-32) Anion Gap 16 mmol/L (5-15) H Blood Urea Nitrogen 62 mg/dL (7-18) H Creatinine 8.7 MG/DL (0.55-1.30) H Estimat Glomerular Filtration Rate 6.2 mL/min (>60) Glucose Level 251 MG/DL (74-106) H Uric Acid 5.3 MG/DL (2.6-7.2) Calcium Level 8.0 MG/DL (8.5-10.1) L Phosphorus Level 6.0 MG/DL (2.5-4.9) H Magnesium Level 2.1 MG/DL (1.8-2.4) Total Bilirubin 0.4 MG/DL (0.2-1.0) Gamma Glutamyl Transpeptidase 12 U/L (5-85) Aspartate Amino Transf (AST/SGOT) 75 U/L (15-37) H Alanine Aminotransferase (ALT/SGPT) 39 U/L (12-78) Alkaline Phosphatase 82 U/L (46-116) C-Reactive Protein, Quantitative 20.6 mg/dL (0.00-0.90) H Pro-B-Type Natriuretic Peptide 26266 pg/mL (0-125) H Total Protein 6.9 G/DL (6.4-8.2) Albumin 2.3 G/DL (3.4-5.0) L Globulin 4.6 g/dL Albumin/Globulin Ratio 0.5 (1.0-2.7) L Random Vancomycin Level 22.0 ug/mL Plan Problems: (1) Suspected COVID-19 virus infection (2) HTN (hypertension) (3) CASSANDRA (acute kidney injury) Assessment & Plan: Needs urgent HD needs access patient okay and consented see note will follow with recs new line placed discussed with team and nephrology HD line functional when checked has TPA now please use appropriately Cathflo used again this flow during dialysis on 430 was low. Will monitor may need line change 5/ (4) Anemia in chronic kidney disease (CKD) (5) Anemia (6) Renal failure (7) Suspected COVID-19 virus infection (8) COVID-19 Assessment & Plan: COVID + c diff negative febrile leukocytosis renal insufficiency see above cont resp care Rx as per ID worsening on vent support now cxr noted on pressors prognosis guarded Yaniv Mast June 15, 2019 16:27
--- NOTE | 2019-06-15 16:54 | General Progress Note ---
Assessment/Plan Problem List: (1) Anemia ICD Codes: D64.9 - Anemia, unspecified SNOMED: 026048985 (2) Renal failure ICD Codes: N19 - Unspecified kidney failure SNOMED: 23875225 (3) Suspected COVID-19 virus infection ICD Codes: R68.89 - Other general symptoms and signs SNOMED: 273730929 (4) HTN (hypertension) ICD Codes: I10 - Essential (primary) hypertension SNOMED: 03553528 (5) CASSANDRA (acute kidney injury) ICD Codes: N17.9 - Acute kidney failure, unspecified SNOMED: 0928637, 27080816 (6) Anemia in chronic kidney disease (CKD) ICD Codes: N18.9 - Chronic kidney disease, unspecified; D63.1 - Anemia in chronic kidney disease SNOMED: 150593854 (7) Suspected COVID-19 virus infection ICD Codes: R68.89 - Other general symptoms and signs SNOMED: 893041821 Status: progressing Assessment/Plan: worsening renal failure worsening anemia of renal failure pna covid positve iresp failure afebrile lethargic poor prognosis afebrile Subjective ROS Limited/Unobtainable: Yes Allergies: Coded Allergies: No Known Allergies (Unverified , 05/28/19) Objective Last 24 Hour Vital Signs Date Time Temp Pulse Resp B/P (MAP) Pulse Ox O2 Delivery O2 Flow Rate FiO2 06/15/19 16:30 65 25 142/67 (92) 100 06/15/19 16:00 98.8 63 26 140/78 (98) 100 06/15/19 15:30 60 26 92/49 (63) 100 06/15/19 15:30 65 25 71/47 (55) 100 06/15/19 15:00 67 27 126/67 (86) 100 06/15/19 15:00 126/67 06/15/19 15:00 26 Mechanical Ventilator 60 06/15/19 15:00 64 28 126/67 (86) 100 06/15/19 14:30 68 27 103/58 (73) 100 06/15/19 14:30 66 26 103/58 (73) 100 06/15/19 14:00 70 26 91/52 (65) 98 06/15/19 14:00 126/67 06/15/19 14:00 26 Mechanical Ventilator 60 06/15/19 13:30 73 26 95/53 (67) 99 06/15/19 13:00 70 26 91/52 (65) 99 06/15/19 13:00 93/63 06/15/19 13:00 26 Mechanical Ventilator 60 06/15/19 12:02 75 26 130/69 (89) 98 06/15/19 12:00 73 06/15/19 12:00 60 06/15/19 12:00 132/72 06/15/19 12:00 28 Mechanical Ventilator 60 06/15/19 11:22 71 31 50 06/15/19 11:08 130/76 06/15/19 11:08 26 Mechanical Ventilator 60 06/15/19 11:00 73 26 181/76 (111) 100 06/15/19 11:00 181/76 06/15/19 11:00 Mechanical Ventilator 60 06/15/19 10:30 72 26 166/69 (101) 97 06/15/19 10:00 75 26 66/41 (49) 100 06/15/19 10:00 66/41 06/15/19 10:00 27 Mechanical Ventilator 60 06/15/19 09:30 76 27 156/85 (108) 99 06/15/19 09:00 148/75 06/15/19 09:00 29 Mechanical Ventilator 60 06/15/19 09:00 99.8 77 25 148/75 (99) 99 06/15/19 08:00 60 06/15/19 08:00 80 06/15/19 08:00 141/68 06/15/19 08:00 26 Mechanical Ventilator 60 06/15/19 08:00 91 26 141/68 (92) 100 06/15/19 07:25 83 26 100 Mechanical Ventilator 50 90 26 50 06/15/19 07:00 83 30 147/73 (97) 99 06/15/19 07:00 147/73 06/15/19 07:00 30 Mechanical Ventilator 60 06/15/19 06:30 86 29 139/69 (92) 99 06/15/19 06:00 99.9 88 29 141/67 (91) 99 06/15/19 06:00 141/67 06/15/19 06:00 29 Mechanical Ventilator 60 06/15/19 05:30 90 30 132/68 (89) 99 06/15/19 05:00 139/68 06/15/19 05:00 31 Mechanical Ventilator 60 06/15/19 05:00 88 31 139/68 (91) 99 06/15/19 04:58 111 26 60 06/15/19 04:30 89 26 138/65 (89) 98 06/15/19 04:12 26 Mechanical Ventilator 60 06/15/19 04:00 Mechanical Ventilator 06/15/19 04:00 109 06/15/19 04:00 130/57 06/15/19 04:00 26 Mechanical Ventilator 60 06/15/19 04:00 101.3 109 26 130/57 (81) 98 06/15/19 04:00 60 06/15/19 03:48 118/58 06/15/19 03:30 112 32 118/58 (78) 99 06/15/19 03:15 101.3 06/15/19 03:00 112/63 06/15/19 03:00 32 Mechanical Ventilator 60 06/15/19 03:00 111 32 112/63 (79) 100 06/15/19 02:31 104 26 100 Mechanical Ventilator 50 109 26 50 06/15/19 02:30 112 29 116/64 (81) 100 06/15/19 02:00 110 26 99/61 (74) 98 06/15/19 02:00 99/61 06/15/19 02:00 26 Mechanical Ventilator 100 06/15/19 01:30 117 26 100/58 (72) 98 06/15/19 01:00 117 28 117/64 (81) 98 06/15/19 01:00 117/64 06/15/19 01:00 26 Mechanical Ventilator 60 06/15/19 00:40 114 26 60 06/15/19 00:30 115 28 114/64 (81) 98 06/15/19 00:00 116 06/15/19 00:00 119/64 06/15/19 00:00 27 Mechanical Ventilator 60 06/15/19 00:00 118 27 119/64 (82) 98 06/15/19 00:00 60 06/15/19 00:00 Mechanical Ventilator 06/14/19 23:30 116 26 121/61 (81) 98 06/14/19 23:00 122 29 123/66 (85) 98 06/14/19 23:00 123/66 06/14/19 23:00 29 Mechanical Ventilator 60 06/14/19 22:30 119 27 121/66 (84) 100 06/14/19 22:30 109 26 100 Mechanical Ventilator 50 112 26 60 06/14/19 22:00 126/73 06/14/19 22:00 24 Mechanical Ventilator 60 06/14/19 22:00 111 24 126/73 (90) 100 06/14/19 21:30 116 22 135/67 (89) 100 06/14/19 21:14 111 26 60 06/14/19 21:00 115 25 127/65 (85) 100 06/14/19 21:00 122/64 06/14/19 21:00 26 Mechanical Ventilator 60 06/14/19 20:30 120 27 118/65 (82) 100 06/14/19 20:13 126 26 100 Mechanical Ventilator 60 122 27 60 06/14/19 20:00 118/59 06/14/19 20:00 27 Mechanical Ventilator 60 06/14/19 20:00 Mechanical Ventilator 06/14/19 20:00 122 06/14/19 20:00 60 06/14/19 20:00 101.1 123 26 118/59 (78) 99 06/14/19 19:30 124 26 125/68 (87) 100 06/14/19 19:00 122 32 149/77 (101) 99 06/14/19 18:40 115 06/14/19 18:40 116/62 06/14/19 18:30 126 26 116/62 (80) 97 06/14/19 18:00 127 26 160/69 (99) 98 06/14/19 17:30 123 26 115/59 (77) 98 06/14/19 17:00 85 28 140/64 (89) 99 Intake and Output 06/14/19 06/15/19 19:00 07:00 Intake Total 1104.085 ml 724.24 ml Output Total 0 ml 15 ml Balance 1104.085 ml 709.24 ml Free Water 40 ml IV Total 1044.085 ml 564.24 ml Tube Feeding 60 ml 120 ml Output Urine Total 0 ml 15 ml Laboratory Tests 06/15/19 04:00: Urine Eosinophils None seen 06/15/19 04:10: White Blood Count 19.2H, Red Blood Count 2.45L, Hemoglobin 7.7L, Hematocrit 22.5L, Mean Corpuscular Volume 92, Mean Corpuscular Hemoglobin 31.4H, Mean Corpuscular Hemoglobin Concent 34.2, Red Cell Distribution Width 16.5H, Platelet Count 111L, Mean Platelet Volume 7.0, Neutrophils (%) (Auto) , Lymphocytes (%) (Auto) , Monocytes (%) (Auto) , Eosinophils (%) (Auto) , Basophils (%) (Auto) , Differential Total Cells Counted 100, Neutrophils % ( Manual) 82H, Lymphocytes % (Manual) 4L, Monocytes % (Manual) 14H, Eosinophils % (Manual) 0, Basophils % (Manual) 0, Band Neutrophils 0, Nucleated Red Blood Cells 2, Platelet Estimate DecreasedL, Platelet Morphology Normal, Hypochromasia 3+, Anisocytosis 1+, Spherocytes 1+, Sodium Level 134L, Potassium Level 4.5, Chloride Level 93L, Carbon Dioxide Level 25, Anion Gap 16H, Blood Urea Nitrogen 62H, Creatinine 8.7H, Estimat Glomerular Filtration Rate 6.2, Glucose Level 251H, Uric Acid 5.3, Calcium Level 8.0L, Phosphorus Level 6.0H, Magnesium Level 2.1, Total Bilirubin 0.4, Gamma Glutamyl Transpeptidase 12, Aspartate Amino Transf (AST/SGOT) 75H, Alanine Aminotransferase (ALT/SGPT) 39, Alkaline Phosphatase 82, C-Reactive Protein, Quantitative 20.6H, Pro-B-Type Natriuretic Peptide 32131E, Total Protein 6.9, Albumin 2.3L, Globulin 4.6, Albumin/Globulin Ratio 0.5L, Random Vancomycin Level 22.0 Height (Feet): 6 Height (Inches): 1.00 Weight (Pounds): 190 Karishma Mulligan MD June 15, 2019 16:54
[2019-06-15] MEDS: Dyna-Hex 2% Top Sol 2oz TOPIC SCH (20:32)
--- NOTE | 2019-06-15 23:49 | Pulmonolgy Critical Care Note ---
Critical Care - Asmt/Plan Assessment/Plan: Pulmonary CCM Progress Note HPI: Patient is a 68 year old man, custodial resident, admitted c/o shortness of breath, cough, noted to have Covid 19 Pneumonia. S/p intubation, remains on pressors, ABG/CXR noted Feeding tube repositioned FIO2 50%, adequate O2 sats HD tolerated ID following On HD per Renal Past Medical History: COPD, CKD, Hypertension, Anemia Hypotension requiring pressors, in ICU Persistently elevated WCC Allergies: No Known Allergies Improving Pulmonary Status on HD Physical Exam Vital Signs Noted Sedated on ventilator WDWN, no distress HEENT: NCAT,moist mm Chest: Occasional rhonchi Heart: HS1, HS2, RRR Abdomen: SNTND, no masses Extremities: Well perfused, no edema [employer]: No focal signs, no seizures, seadted Impression: COVID-19 virus infection Pneumonia Respiratory failure on ventilator Volume overload improving - on HD Cardiomegaly Lymphopenia Elevated AST COPD Chronic Kidney Disease - HD Hypertension Worsening anemia Plan: Antibiotics per ID HD Pressors PRN ACVC ABG PRN SLIP MIXER Medications 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 Monitor cultures/viral studies PPX Hemodialysis per Renal Psychiatry [facility] - [facility] requested for when available, [facility] - not available as yet Laboratory Tests Noted: CXR: Hypoventilatory exam, interstitial changes, cardiomegaly, worsening infiltrates Subjective ROS Limited/Unobtainable: No Constitutional: Denies: fever Respiratory: Reports: dry cough, shortness of breath Gastrointestinal/Abdominal: Reports: diarrhea, other - colace was stopped Psychiatric: Reports: other - refuses labs Allergies: Coded Allergies: No Known Allergies (Unverified , 05/28/19) All Systems: reviewed and negative except above Labs noted Critical Care - Objective Last 24 Hour Vital Signs Date Time Temp Pulse Resp B/P (MAP) Pulse Ox O2 Delivery O2 Flow Rate FiO2 06/15/19 23:03 84 29 100 Mechanical Ventilator 50 84 29 50 06/15/19 23:00 84 26 103/46 (65) 98 06/15/19 22:30 80 8 98/58 (71) 100 06/15/19 22:00 82 12 104/60 (75) 100 06/15/19 21:30 83 12 114/64 (81) 100 06/15/19 21:00 77 29 116/75 (89) 100 5/5/20 20:30 77 23 123/70 (87) 100 520 20:00 98.3 78 16 124/72 (89) 100 520 20:00 60 5/20 20:00 74 5/20 19:30 87 33 111/73 (86) 100 20 19:16 81 30 99 Mechanical Ventilator 50 84 29 100 20 19:00 78 22 122/69 (86) 100 20 18:30 96.2 78 32 120/69 (86) 100 20 18:00 72 32 117/65 (82) 100 20 18:00 120/65 5 18:00 26 Mechanical Ventilator 60 06/15/19 18:00 74 31 117/65 (82) 100 06/15/19 17:40 98.6 06/15/19 17:30 80 26 107/64 (78) 100 06/15/19 17:30 76 24 107/64 (78) 99 06/15/19 17:10 26 60 06/15/19 17:09 60/43 06/15/19 17:00 69 26 60/37 (45) 98 06/15/19 17:00 68 24 60/37 (45) 97 06/15/19 16:30 65 25 142/67 (92) 100 06/15/19 16:00 98.8 63 26 140/78 (98) 100 06/15/19 16:00 69 06/15/19 16:00 140/78 06/15/19 16:00 29 Mechanical Ventilator 60 06/15/19 16:00 60 06/15/19 15:30 60 26 92/49 (63) 100 06/15/19 15:30 65 25 71/47 (55) 100 20 15:24 66 30 50 06/15/19 15:00 67 27 126/67 (86) 100 20 15:00 126/67 06/15/19 15:00 26 Mechanical Ventilator 60 06/15/19 15:00 64 28 126/67 (86) 100 20 14:30 68 27 103/58 (73) 100 06/15/19 14:30 66 26 103/58 (73) 100 5/5/20 14:00 70 26 91/52 (65) 98 06/15/19 14:00 126/67 06/15/19 14:00 26 Mechanical Ventilator 60 06/15/19 13:30 73 26 95/53 (67) 99 06/15/19 13:00 70 26 91/52 (65) 99 06/15/19 13:00 93/63 06/15/19 13:00 26 Mechanical Ventilator 60 06/15/19 12:02 75 26 130/69 (89) 98 06/15/19 12:00 73 06/15/19 12:00 60 06/15/19 12:00 132/72 06/15/19 12:00 28 Mechanical Ventilator 60 06/15/19 11:22 71 31 50 06/15/19 11:08 130/76 06/15/19 11:08 26 Mechanical Ventilator 60 06/15/19 11:00 73 26 181/76 (111) 100 06/15/19 11:00 181/76 06/15/19 11:00 Mechanical Ventilator 60 06/15/19 10:30 72 26 166/69 (101) 97 06/15/19 10:00 75 26 66/41 (49) 100 06/15/19 10:00 66/41 06/15/19 10:00 27 Mechanical Ventilator 60 06/15/19 09:30 76 27 156/85 (108) 99 06/15/19 09:00 148/75 06/15/19 09:00 29 Mechanical Ventilator 60 06/15/19 09:00 99.8 77 25 148/75 (99) 99 06/15/19 08:00 60 06/15/19 08:00 80 06/15/19 08:00 141/68 06/15/19 08:00 26 Mechanical Ventilator 60 06/15/19 08:00 91 26 141/68 (92) 100 06/15/19 07:25 83 26 100 Mechanical Ventilator 50 90 26 50 06/15/19 07:00 83 30 147/73 (97) 99 06/15/19 07:00 147/73 06/15/19 07:00 30 Mechanical Ventilator 60 06/15/19 06:30 86 29 139/69 (92) 99 06/15/19 06:00 99.9 88 29 141/67 (91) 99 06/15/19 06:00 141/67 06/15/19 06:00 29 Mechanical Ventilator 60 06/15/19 05:30 90 30 132/68 (89) 99 06/15/19 05:00 139/68 06/15/19 05:00 31 Mechanical Ventilator 60 06/15/19 05:00 88 31 139/68 (91) 99 06/15/19 04:58 111 26 60 06/15/19 04:30 89 26 138/65 (89) 98 06/15/19 04:12 26 Mechanical Ventilator 60 06/15/19 04:00 Mechanical Ventilator 06/15/19 04:00 109 06/15/19 04:00 130/57 06/15/19 04:00 26 Mechanical Ventilator 60 06/15/19 04:00 101.3 109 26 130/57 (81) 98 06/15/19 04:00 60 06/15/19 03:48 118/58 06/15/19 03:30 112 32 118/58 (78) 99 06/15/19 03:15 101.3 06/15/19 03:00 112/63 06/15/19 03:00 32 Mechanical Ventilator 60 06/15/19 03:00 111 32 112/63 (79) 100 06/15/19 02:31 104 26 100 Mechanical Ventilator 50 109 26 50 06/15/19 02:30 112 29 116/64 (81) 100 06/15/19 02:00 110 26 99/61 (74) 98 06/15/19 02:00 99/61 06/15/19 02:00 26 Mechanical Ventilator 100 06/15/19 01:30 117 26 100/58 (72) 98 06/15/19 01:00 117 28 117/64 (81) 98 06/15/19 01:00 117/64 06/15/19 01:00 26 Mechanical Ventilator 60 06/15/19 00:40 114 26 60 06/15/19 00:30 115 28 114/64 (81) 98 06/15/19 00:00 116 06/15/19 00:00 119/64 06/15/19 00:00 27 Mechanical Ventilator 60 06/15/19 00:00 118 27 119/64 (82) 98 06/15/19 00:00 60 06/15/19 00:00 Mechanical Ventilator Micro: Microbiology Date/Time Source Procedure Growth Status 06/14/19 14:20 Sputum Gram Stain - Final Resulted 06/14/19 14:20 Sputum Sputum Culture Pending Resulted Critical Care - Subjective ROS Limited/Unobtainable: No FI02: 50 Vent Support Breath Rate: 26 Vent Support Mode: AC Vent Tidal Volume: 500 Sputum Amount: Small PEEP: 8.0 PIP: 34 Tube Feeding Amount: 10 I&O: Intake and Output 06/14/19 06/15/19 19:00 07:00 Intake Total 1104.085 ml 724.24 ml Output Total 0 ml 15 ml Balance 1104.085 ml 709.24 ml Free Water 40 ml IV Total 1044.085 ml 564.24 ml Tube Feeding 60 ml 120 ml Output Urine Total 0 ml 15 ml ET-Tube: 7.5 ET Position: 24 Arturo Mckeon MD June 15, 2019 23:49
[2019-06-16] VITALS (46 sets, daily range): BP systolic 76–165; BP diastolic 41–79
[2019-06-16] MEDS: Renvela 800mg Pkt NG SCH ×5 (00:20→23:41)
[2019-06-16] MEDS: fentaNYL Citrate 2,500 MCG in NS 200 ML IV SCH ×2 (03:15→16:40)
[2019-06-16] MEDS: Albuterol 90mcg Inhaler 8gm INH SCH ×6 (03:46→23:27)
[2019-06-16 06:27] LABS: HEMATOCRIT 21.3 % (42.0-52.0); HEMOGLOBIN 7.1 G/DL (14.2-18.0); MEAN CORPUSCULAR VOLUME 93 FL (80-99); PLATELET COUNT 110 K/UL (150-450); RED BLOOD COUNT 2.31 M/UL (4.70-6.10); RED CELL DISTRIBUTION WIDTH 19.9 % (11.6-14.8); WHITE BLOOD COUNT 16.2 K/UL (4.8-10.8)
[2019-06-16] MEDS: Piperacillin/Tazobactam 2.25 GM in D5W 55 ML IVPB SCH ×3 (06:39→22:29)
[2019-06-16 07:24] LABS: ALANINE AMINOTRANSFERASE 29 U/L (12-78); ALBUMIN/GLOBULIN RATIO 0.4 (1.0-2.7); ALKALINE PHOSPHATASE 76 U/L (46-116); ANION GAP 16 mmol/L (5-15); ASPARTATE AMINO TRANSFERASE 46 U/L (15-37); BILIRUBIN,TOTAL 0.4 MG/DL (0.2-1.0); BLOOD UREA NITROGEN 71 mg/dL (7-18); CALCIUM 8.3 MG/DL (8.5-10.1); CARBON DIOXIDE 24 MMOL/L (21-32); CHLORIDE 90 MMOL/L (98-107); CREATININE 9.9 MG/DL (0.55-1.30); PHOSPHORUS 6.5 MG/DL (2.5-4.9); POTASSIUM 4.3 MMOL/L (3.5-5.1); SODIUM 130 MMOL/L (136-145)
[2019-06-16] MEDS: Norepinephrine Bitartrate 16 MG in D5W 500ml 550 ML IV SCH ×2 (07:25→19:51)
[2019-06-16] MEDS: Wixela 100/50 Inhaler - 60 dose INH SCH ×2 (07:28→17:47)
[2019-06-16] MEDS: Pantoprazole Inj IVP SCH ×2 (08:40→20:45)
[2019-06-16] MEDS: Docusate 100mg/10ml Liq NG SCH ×3 (08:41→17:59)
[2019-06-16] MEDS: Acetaminophen 650mg/20.3ml NG PRN (08:41)
[2019-06-16] MEDS: Midodrine 10mg tab NG SCH ×3 (08:41→17:59)
[2019-06-16] MEDS: Enoxaparin 30mg Inj SUBQ SCH (08:44)
[2019-06-16] MEDS ORDERED: Vancomycin 1 GM in NS 275 ML IVPB SCH (09:00)
--- NOTE | 2019-06-16 09:53 | Surgery Progress Note ---
Surgery Progress Note Subjective Procedure Performed Right femoral temporary hemodialysis catheter insertion Additional Comments leukocytosis improving respiratory slightly improved peep down fi02 okay Objective Last 24 Hour Vital Signs Date Time Temp Pulse Resp B/P (MAP) Pulse Ox O2 Delivery O2 Flow Rate FiO2 06/16/19 08:00 100.1 81 26 109/58 (75) 98 06/16/19 08:00 Mechanical Ventilator 06/16/19 08:00 40 06/16/19 07:25 112/62 06/16/19 07:23 81 29 100 Mechanical Ventilator 40 84 29 50 06/16/19 07:00 80 30 115/59 (77) 98 06/16/19 07:00 26 Mechanical Ventilator 40 06/16/19 06:45 117/62 06/16/19 06:30 80 30 129/61 (83) 98 06/16/19 06:00 121/51 06/16/19 06:00 26 Mechanical Ventilator 40 06/16/19 06:00 79 30 121/59 (79) 98 06/16/19 05:30 80 25 121/60 (80) 98 06/16/19 05:19 87 29 100 Mechanical Ventilator 50 84 29 50 06/16/19 05:12 99.0 06/16/19 05:00 82 26 122/59 (80) 99 06/16/19 05:00 122/59 06/16/19 05:00 26 Mechanical Ventilator 40 06/16/19 04:30 85 26 106/55 (72) 97 06/16/19 04:00 74 06/16/19 04:00 40 06/16/19 04:00 123/61 06/16/19 04:00 26 Mechanical Ventilator 60 06/16/19 04:00 100.3 74 28 123/61 (81) 100 06/16/19 04:00 Mechanical Ventilator 06/16/19 03:30 74 28 118/62 (80) 100 06/16/19 03:15 26 Mechanical Ventilator 60 06/16/19 03:00 74 26 118/61 (80) 100 06/16/19 03:00 118/61 06/16/19 03:00 26 Mechanical Ventilator 60 06/16/19 02:30 73 25 123/62 (82) 100 06/16/19 02:00 70 29 117/63 (81) 100 06/16/19 02:00 117/63 5/6/20 02:00 26 Mechanical Ventilator 60 5/6/20 01:30 71 25 115/66 (82) 100 5/620 01:16 87 28 100 Mechanical Ventilator 50 84 29 50 5/6/20 01:00 72 26 112/60 (77) 100 5/6/20 01:00 112/60 5/6/20 01:00 26 Mechanical Ventilator 60 20 00:30 74 25 106/56 (73) 100 5/6/20 00:00 99.0 73 19 104/56 (72) 100 620 00:00 Mechanical Ventilator 20 00:00 104/56 5/6/20 00:00 26 Mechanical Ventilator 60 20 23:30 71 26 104/55 (71) 100 20 23:03 84 29 100 Mechanical Ventilator 50 84 29 50 20 23:00 103/46 5//20 23:00 26 Mechanical Ventilator 60 20 23:00 84 26 103/46 (65) 98 /20 22:30 80 8 98/58 (71) 100 5/20 22:00 82 12 104/60 (75) 100 5//20 22:00 104/60 5/20 22:00 25 Mechanical Ventilator 60 20 21:30 83 12 114/64 (81) 100 5/5/20 21:00 116/75 5/5/20 21:00 26 Mechanical Ventilator 60 5//20 21:00 77 29 116/75 (89) 100 5/5/20 20:30 77 23 123/70 (87) 100 5/5/20 20:00 98.3 78 16 124/72 (89) 100 5/5/20 20:00 116/75 5/5/20 20:00 26 Mechanical Ventilator 60 5/5/20 20:00 60 5/5/20 20:00 Mechanical Ventilator 5/5/20 20:00 74 5/5/20 19:30 87 33 111/73 (86) 100 5/5/20 19:16 81 30 99 Mechanical Ventilator 50 84 29 100 5/5/20 19:00 122/69 5/5/20 19:00 26 Mechanical Ventilator 60 5/5/20 19:00 78 22 122/69 (86) 100 5/06/29 18:30 96.2 78 32 120/69 (86) 100 20 18:00 72 32 117/65 (82) 100 20 18:00 120/65 06/15/19 18:00 26 Mechanical Ventilator 60 20 18:00 74 31 117/65 (82) 100 20 17:30 80 26 107/64 (78) 100 06/15/19 17:30 76 24 107/64 (78) 99 06/15/19 17:10 26 60 06/15/19 17:09 60/43 06/15/19 17:00 69 26 60/37 (45) 98 06/15/19 17:00 68 24 60/37 (45) 97 06/15/19 16:30 65 25 142/67 (92) 100 06/15/19 16:00 98.8 63 26 140/78 (98) 100 06/15/19 16:00 69 06/15/19 16:00 140/78 06/15/19 16:00 29 Mechanical Ventilator 60 06/15/19 16:00 60 06/15/19 15:30 60 26 92/49 (63) 100 06/15/19 15:30 65 25 71/47 (55) 100 06/15/19 15:24 66 30 50 06/15/19 15:00 67 27 126/67 (86) 100 06/15/19 15:00 126/67 06/15/19 15:00 26 Mechanical Ventilator 60 06/15/19 15:00 64 28 126/67 (86) 100 06/15/19 14:30 68 27 103/58 (73) 100 20 14:30 66 26 103/58 (73) 100 06/15/19 14:00 70 26 91/52 (65) 98 06/15/19 14:00 126/67 06/15/19 14:00 26 Mechanical Ventilator 60 06/15/19 13:30 73 26 95/53 (67) 99 20 13:00 70 26 91/52 (65) 99 06/15/19 13:00 93/63 06/15/19 13:00 26 Mechanical Ventilator 60 06/15/19 12:02 75 26 130/69 (89) 98 06/15/19 12:00 73 06/15/19 12:00 60 06/15/19 12:00 132/72 06/15/19 12:00 28 Mechanical Ventilator 60 06/15/19 11:22 71 31 50 06/15/19 11:08 130/76 06/15/19 11:08 26 Mechanical Ventilator 60 06/15/19 11:00 73 26 181/76 (111) 100 06/15/19 11:00 181/76 06/15/19 11:00 Mechanical Ventilator 60 06/15/19 10:30 72 26 166/69 (101) 97 06/15/19 10:00 75 26 66/41 (49) 100 06/15/19 10:00 66/41 06/15/19 10:00 27 Mechanical Ventilator 60 I&O Intake and Output 06/15/19 06/16/19 19:00 07:00 Intake Total 987.34 ml 827.74 ml Output Total 0 ml 20 ml Balance 987.34 ml 807.74 ml Free Water 120 ml 60 ml IV Total 747.34 ml 647.74 ml Tube Feeding 120 ml 120 ml Output Urine Total 0 ml 20 ml Dressing: dry Wound: clean Cardiovascular: RSR Respiratory: decreased breath sounds Abdomen: soft, non-tender, present bowel sounds Extremities: no cyanosis Laboratory Tests Test 06/16/19 04:00 White Blood Count 16.2 K/UL (4.8-10.8) H Red Blood Count 2.31 M/UL (4.70-6.10) L Hemoglobin 7.1 G/DL (14.2-18.0) L Hematocrit 21.3 % (42.0-52.0) L Mean Corpuscular Volume 93 FL (80-99) Mean Corpuscular Hemoglobin 31.0 PG (27.0-31.0) Mean Corpuscular Hemoglobin Concent 33.5 G/DL (32.0-36.0) Red Cell Distribution Width 19.9 % (11.6-14.8) H Platelet Count 110 K/UL (150-450) L Mean Platelet Volume 8.3 FL (6.5-10.1) Neutrophils (%) (Auto) % (45.0-75.0) Lymphocytes (%) (Auto) % (20.0-45.0) Monocytes (%) (Auto) % (1.0-10.0) Eosinophils (%) (Auto) % (0.0-3.0) Basophils (%) (Auto) % (0.0-2.0) Differential Total Cells Counted 100 Neutrophils % (Manual) 83 % (45-75) H Lymphocytes % (Manual) 6 % (20-45) L Monocytes % (Manual) 11 % (1-10) H Eosinophils % (Manual) 0 % (0-3) Basophils % (Manual) 0 % (0-2) Band Neutrophils 0 % (0-8) Platelet Estimate Decreased L Platelet Morphology Normal Polychromasia 2+ Hypochromasia 1+ Anisocytosis 2+ Sodium Level 130 MMOL/L (136-145) L Potassium Level 4.3 MMOL/L (3.5-5.1) Chloride Level 90 MMOL/L (98-107) L Carbon Dioxide Level 24 MMOL/L (21-32) Anion Gap 16 mmol/L (5-15) H Blood Urea Nitrogen 71 mg/dL (7-18) H Creatinine 9.9 MG/DL (0.55-1.30) H Estimat Glomerular Filtration Rate 5.3 mL/min (>60) Glucose Level 225 MG/DL (74-106) H Uric Acid 6.6 MG/DL (2.6-7.2) Calcium Level 8.3 MG/DL (8.5-10.1) L Phosphorus Level 6.5 MG/DL (2.5-4.9) H Magnesium Level 2.1 MG/DL (1.8-2.4) Total Bilirubin 0.4 MG/DL (0.2-1.0) Aspartate Amino Transf (AST/SGOT) 46 U/L (15-37) H Alanine Aminotransferase (ALT/SGPT) 29 U/L (12-78) Alkaline Phosphatase 76 U/L (46-116) C-Reactive Protein, Quantitative 24.1 mg/dL (0.00-0.90) H Pro-B-Type Natriuretic Peptide 10050 pg/mL (0-125) H Total Protein 7.3 G/DL (6.4-8.2) Albumin 2.0 G/DL (3.4-5.0) L Globulin 5.3 g/dL Albumin/Globulin Ratio 0.4 (1.0-2.7) L Plan Problems: (1) Suspected COVID-19 virus infection (2) HTN (hypertension) (3) CASSANDRA (acute kidney injury) Assessment & Plan: Needs urgent HD needs access patient okay and consented see note will follow with recs new line placed discussed with team and nephrology HD line functional when checked has TPA now please use appropriately Cathflo used again this flow during dialysis on 430 was low. Will monitor may need line change 06/13 plan for HD as per renal (4) Anemia in chronic kidney disease (CKD) (5) Anemia (6) Renal failure (7) Suspected COVID-19 virus infection (8) COVID-19 Assessment & Plan: COVID + c diff negative febrile leukocytosis renal insufficiency see above cont resp care Rx as per ID worsening on vent support now cxr noted on pressors prognosis guarded Yaniv Mast June 16, 2019 09:53
--- NOTE | 2019-06-16 10:32 | Infectious Diseases Prog Note ---
Assessment/Plan Assessment/Plan IMPRESSION: 1. COVID19 pneumonia Positive: 05/27, 05/31 , 06/05, 06/09 2. MRSA carrier. 3. Chronic kidney disease , end-stage renal disease. 4. COPD. 5. Hypertension. 6. Anemia. 7. Hypothyroidism. 8. Hyperlipidemia. 9. Major depression. 10. Leukocytosis 11. Hypotension 12. Hepatitis C 13. Hyperuricemia 14. Diarrhea 15. septic shock RECOMMENDATIONS: Continue Vancomycin & Zosyn Poor prognosis Finished hydroxychloroquine. Will f/u COVID19 test Subjective ROS Limited/Unobtainable: Yes Constitutional: Reports: fever, other - Dk=324.3 Cardiovascular: Reports: other - on Levophed Neurologic: Reports: other - on restraint Allergies: Coded Allergies: No Known Allergies (Unverified , 05/28/19) Objective Vital Signs Last 24 Hour Vital Signs Date Time Temp Pulse Resp B/P (MAP) Pulse Ox O2 Delivery O2 Flow Rate FiO2 06/16/19 08:00 100.1 81 26 109/58 (75) 98 06/16/19 08:00 Mechanical Ventilator 06/16/19 08:00 40 06/16/19 07:25 112/62 06/16/19 07:23 81 29 100 Mechanical Ventilator 40 84 29 50 06/16/19 07:00 80 30 115/59 (77) 98 06/16/19 07:00 26 Mechanical Ventilator 40 06/16/19 06:45 117/62 06/16/19 06:30 80 30 129/61 (83) 98 06/16/19 06:00 121/51 06/16/19 06:00 26 Mechanical Ventilator 40 06/16/19 06:00 79 30 121/59 (79) 98 06/16/19 05:30 80 25 121/60 (80) 98 06/16/19 05:19 87 29 100 Mechanical Ventilator 50 84 29 50 06/16/19 05:12 99.0 06/16/19 05:00 82 26 122/59 (80) 99 06/16/19 05:00 122/59 06/16/19 05:00 26 Mechanical Ventilator 40 06/16/19 04:30 85 26 106/55 (72) 97 06/16/19 04:00 74 06/16/19 04:00 40 06/16/19 04:00 123/61 06/16/19 04:00 26 Mechanical Ventilator 60 06/16/19 04:00 100.3 74 28 123/61 (81) 100 06/16/19 04:00 Mechanical Ventilator 06/16/19 03:30 74 28 118/62 (80) 100 06/16/19 03:15 26 Mechanical Ventilator 60 06/16/19 03:00 74 26 118/61 (80) 100 06/16/19 03:00 118/61 06/16/19 03:00 26 Mechanical Ventilator 60 06/16/19 02:30 73 25 123/62 (82) 100 06/16/19 02:00 70 29 117/63 (81) 100 06/16/19 02:00 117/63 06/16/19 02:00 26 Mechanical Ventilator 60 06/16/19 01:30 71 25 115/66 (82) 100 06/16/19 01:16 87 28 100 Mechanical Ventilator 50 84 29 50 06/16/19 01:00 72 26 112/60 (77) 100 06/16/19 01:00 112/60 06/16/19 01:00 26 Mechanical Ventilator 60 06/16/19 00:30 74 25 106/56 (73) 100 06/16/19 00:00 99.0 73 19 104/56 (72) 100 06/16/19 00:00 Mechanical Ventilator 06/16/19 00:00 104/56 06/16/19 00:00 26 Mechanical Ventilator 60 06/15/19 23:30 71 26 104/55 (71) 100 06/15/19 23:03 84 29 100 Mechanical Ventilator 50 84 29 50 06/15/19 23:00 103/46 06/15/19 23:00 26 Mechanical Ventilator 60 06/15/19 23:00 84 26 103/46 (65) 98 06/15/19 22:30 80 8 98/58 (71) 100 06/15/19 22:00 82 12 104/60 (75) 100 06/15/19 22:00 104/60 06/15/19 22:00 25 Mechanical Ventilator 60 06/15/19 21:30 83 12 114/64 (81) 100 06/15/19 21:00 116/75 06/15/19 21:00 26 Mechanical Ventilator 60 06/15/19 21:00 77 29 116/75 (89) 100 5/5/20 20:30 77 23 123/70 (87) 100 5/5/20 20:00 98.3 78 16 124/72 (89) 100 5/5/20 20:00 116/75 5/5/20 20:00 26 Mechanical Ventilator 60 5/20 20:00 60 5/5/20 20:00 Mechanical Ventilator 5/5/20 20:00 74 5/520 19:30 87 33 111/73 (86) 100 520 19:16 81 30 99 Mechanical Ventilator 50 84 29 100 520 19:00 122/69 520 19:00 26 Mechanical Ventilator 60 5/20 19:00 78 22 122/69 (86) 100 /20 18:30 96.2 78 32 120/69 (86) 100 5/20 18:00 72 32 117/65 (82) 100 /20 18:00 120/65 20 18:00 26 Mechanical Ventilator 60 06/15/19 18:00 74 31 117/65 (82) 100 20 17:30 80 26 107/64 (78) 100 20 17:30 76 24 107/64 (78) 99 06/15/19 17:10 26 60 06/15/19 17:09 60/43 06/15/19 17:00 69 26 60/37 (45) 98 5/20 17:00 68 24 60/37 (45) 97 20 16:30 65 25 142/67 (92) 100 20 16:00 98.8 63 26 140/78 (98) 100 20 16:00 69 520 16:00 140/78 20 16:00 29 Mechanical Ventilator 60 20 16:00 60 20 15:30 60 26 92/49 (63) 100 20 15:30 65 25 71/47 (55) 100 520 15:24 66 30 50 5//20 15:00 67 27 126/67 (86) 100 520 15:00 126/67 5 15:00 26 Mechanical Ventilator 60 06/15/19 15:00 64 28 126/67 (86) 100 06/15/19 14:30 68 27 103/58 (73) 100 06/15/19 14:30 66 26 103/58 (73) 100 06/15/19 14:00 70 26 91/52 (65) 98 06/15/19 14:00 126/67 06/15/19 14:00 26 Mechanical Ventilator 60 06/15/19 13:30 73 26 95/53 (67) 99 06/15/19 13:00 70 26 91/52 (65) 99 06/15/19 13:00 93/63 06/15/19 13:00 26 Mechanical Ventilator 60 06/15/19 12:02 75 26 130/69 (89) 98 06/15/19 12:00 73 06/15/19 12:00 60 06/15/19 12:00 132/72 06/15/19 12:00 28 Mechanical Ventilator 60 06/15/19 11:22 71 31 50 06/15/19 11:08 130/76 06/15/19 11:08 26 Mechanical Ventilator 60 06/15/19 11:00 73 26 181/76 (111) 100 06/15/19 11:00 181/76 06/15/19 11:00 Mechanical Ventilator 60 06/15/19 10:30 72 26 166/69 (101) 97 Height (Feet): 6 Height (Inches): 1.00 Weight (Pounds): 209 HEENT: other - orally intubated Respiratory/Chest: other - on ventilator, FIO2=40% Cardiovascular: normal rate, other - left subclavian central line Abdomen: soft, non tender, other Extremities: no edema Neurologic/Psychiatric: other - sedated Microbiology Date/Time Source Procedure Growth Status 06/14/19 14:20 Sputum Gram Stain - Final Complete 06/14/19 14:20 Sputum Sputum Culture - Final NORMAL UPPER RESPIRATORY WALDEMAR PRESENT Complete Laboratory Tests Test 06/16/19 04:00 White Blood Count 16.2 K/UL (4.8-10.8) H Red Blood Count 2.31 M/UL (4.70-6.10) L Hemoglobin 7.1 G/DL (14.2-18.0) L Hematocrit 21.3 % (42.0-52.0) L Mean Corpuscular Volume 93 FL (80-99) Mean Corpuscular Hemoglobin 31.0 PG (27.0-31.0) Mean Corpuscular Hemoglobin Concent 33.5 G/DL (32.0-36.0) Red Cell Distribution Width 19.9 % (11.6-14.8) H Platelet Count 110 K/UL (150-450) L Mean Platelet Volume 8.3 FL (6.5-10.1) Neutrophils (%) (Auto) % (45.0-75.0) Lymphocytes (%) (Auto) % (20.0-45.0) Monocytes (%) (Auto) % (1.0-10.0) Eosinophils (%) (Auto) % (0.0-3.0) Basophils (%) (Auto) % (0.0-2.0) Differential Total Cells Counted 100 Neutrophils % (Manual) 83 % (45-75) H Lymphocytes % (Manual) 6 % (20-45) L Monocytes % (Manual) 11 % (1-10) H Eosinophils % (Manual) 0 % (0-3) Basophils % (Manual) 0 % (0-2) Band Neutrophils 0 % (0-8) Platelet Estimate Decreased L Platelet Morphology Normal Polychromasia 2+ Hypochromasia 1+ Anisocytosis 2+ Sodium Level 130 MMOL/L (136-145) L Potassium Level 4.3 MMOL/L (3.5-5.1) Chloride Level 90 MMOL/L (98-107) L Carbon Dioxide Level 24 MMOL/L (21-32) Anion Gap 16 mmol/L (5-15) H Blood Urea Nitrogen 71 mg/dL (7-18) H Creatinine 9.9 MG/DL (0.55-1.30) H Estimat Glomerular Filtration Rate 5.3 mL/min (>60) Glucose Level 225 MG/DL (74-106) H Uric Acid 6.6 MG/DL (2.6-7.2) Calcium Level 8.3 MG/DL (8.5-10.1) L Phosphorus Level 6.5 MG/DL (2.5-4.9) H Magnesium Level 2.1 MG/DL (1.8-2.4) Total Bilirubin 0.4 MG/DL (0.2-1.0) Aspartate Amino Transf (AST/SGOT) 46 U/L (15-37) H Alanine Aminotransferase (ALT/SGPT) 29 U/L (12-78) Alkaline Phosphatase 76 U/L (46-116) C-Reactive Protein, Quantitative 24.1 mg/dL (0.00-0.90) H Pro-B-Type Natriuretic Peptide 52876 pg/mL (0-125) H Total Protein 7.3 G/DL (6.4-8.2) Albumin 2.0 G/DL (3.4-5.0) L Globulin 5.3 g/dL Albumin/Globulin Ratio 0.4 (1.0-2.7) L Current Medications Medications (Trade) Dose Ordered Sig/Anthony Route PRN Reason Start Time Stop Time Status Last Admin Dose Admin Acetaminophen (Tylenol) 650 mg Q4H PRN NG Temp >100.5 06/13/19 11:00 07/13/19 10:59 06/16/19 08:41 Albuterol Sulfate (Proventil MDI) 2 puff Q4HRT INH 06/06/19 23:00 08/30/19 18:59 06/16/19 07:28 Allopurinol (allopurinoL) 300 mg DAILY NG 06/08/19 09:30 07/08/19 09:29 06/16/19 08:41 Chlorhexidine Gluconate (Michelle-Hex 2%) 1 applic DAILY@2000 TOPIC 06/07/19 20:00 09/05/19 19:59 06/15/19 20:32 Docusate Sodium (Colace) 100 mg THREE TIMES A DAY NG 06/07/19 13:00 07/07/19 12:59 06/16/19 08:41 Dopamine HCl/ Dextrose 250 ml @ 0 mls/hr Q24H PRN IV For hypotension 06/13/19 08:15 09/11/19 08:14 Enoxaparin Sodium (Lovenox) 30 mg DAILY SUBQ 06/07/19 09:00 08/27/19 08:59 06/16/19 08:44 Epoetin Aftab (Epoetin Aftab(ESRD on dialysis)) 10,000 unit FRI-FRI-[id number] SUBQ 06/07/19 21:00 08/31/19 20:59 06/14/19 20:58 Fentanyl Citrate 2500 mcg/Sodium Chloride 250 ml @ 0 mls/hr Q24H IV 06/13/19 07:00 06/20/19 06:59 06/16/19 03:15 Hydralazine HCl (Apresoline) 10 mg Q4H PRN IV Blood pressure over 160 systol 06/07/19 10:15 09/05/19 10:14 Midodrine (Pro-Amatine) 10 mg THREE TIMES A DAY NG 06/09/19 13:00 09/07/19 12:59 06/16/19 08:41 Norepinephrine Bitartrate 16 mg/ Dextrose 566 ml @ 0 mls/hr Q24H IV 06/13/19 09:45 07/13/19 09:44 06/16/19 07:25 Pantoprazole (Protonix) 40 mg Q12HR IVP 06/07/19 21:00 07/07/19 08:59 06/16/19 08:40 Piperacillin Sod/ Tazobactam Sod 2.25 gm/Dextrose 55 ml @ 110 mls/hr Q8HR IVPB 06/13/19 14:00 06/18/19 13:59 06/16/19 06:39 Salmeterol Xinafoate/ Fluticasone (Advair 100/50 Diskus) 1 puffs BID INH 06/07/19 09:00 08/27/19 08:59 06/11/19 09:14 Sevelamer Carbonate (Renvela) 1,600 mg Q6HR NG 06/14/19 12:00 09/05/19 12:59 06/16/19 06:40 Vancomycin HCl (Vanco rx to dose) 1 ea DAILY PRN MISC Per rx protocol 06/13/19 11:45 07/13/19 11:44 Vasopressin 100 units/Sodium Chloride 100 ml @ 0 mls/hr Q24H IV 06/12/19 11:00 07/12/19 10:59 06/15/19 11:08 Ted Leyva MD June 16, 2019 10:32
[2019-06-16] MEDS: Vasopressin 100 UNITS in NS 95 ML IV SCH (11:00)
--- NOTE | 2019-06-16 11:35 | Hematology/Onc Progress Note ---
Assessment/Plan Assessment/Plan Assessment and Recs: # Anemia of chronic disease, likely related ot underlying kidney disease --> hgb trend 9-->8-->7.3-->7.9-->6.8->9.5-->10->8.3-->7.7-->7.1 --> transfuse as needed, hgb goal >7 --> no evidence of hemolysis --> peripheral smear has been reviewed --> epogen started tid ==>> transfuse w 2 units 06/08, 06/15, # Leukocytosis likely related to suspected COVID-19 virus infection --> completed plaquenil --> trend smear as needed --> initially 4-->11-->14.5-->21-->26-->21->24--.28-->23-->19-->16.2 --> pulm is aware --> on abx cefepime/vanc->zosyn/vanc --> pressors as needed # Lymphopenia --> likely related to covid19 # Respiratory failure --> s/p vent # Possible Pneumonia # Cardiomegaly # Transaminitis with Elevated AST # COPD # Chronic Kidney Disease --> per renal hd # Hypertension # Dvt ppx lovenox Appreciate consultation and ernesto Candelario Subjective Allergies: Coded Allergies: No Known Allergies (Unverified , 05/28/19) Subjective 06/01 extremely agitated, not allowing labs draws, no night sweats, cbc ordered 06/02 confused, restraints, on abx and plaquenil, hgb 7.9, nrb 15 L 06/03 is with nonrebreather, but not compliant, remains confused 06/05 no bleeding, labs noted, no major bleeding, otherwise comfortable 06/06 labs reviewed, no bleeding, meds noted, no night sweats, on levo and nonrebreather 06/07 labs noted, no bleeding, meds reviewed, no bleeding, wbc higher 06/08 to get 2 units prbc, no night sweats, meds reviewed 06/09 is on cefepime and vanc, labs noted, ernesto Rn, no bleeding 06/10 no major changes, labs reviewed, wbc 28k, on abx, cefepime 06/12 remains in icu, labs noted, no night sweats or bleeding 06/13 sluggish pupils, remains agitated, per psych, no bleding, on vent, wbc sitll high 06/14 still confused, remains on vent, with ng, running nepro, on pressors 06/15 icu, febrile, non verbal, hgb 7.1, blood pending, completed plaq Objective Objective Current Medications Medications (Trade) Dose Ordered Sig/Anthony Route PRN Reason Start Time Stop Time Status Last Admin Dose Admin Acetaminophen (Tylenol) 650 mg Q4H PRN NG Temp >100.5 06/13/19 11:00 07/13/19 10:59 06/16/19 08:41 Albuterol Sulfate (Proventil MDI) 2 puff Q4HRT INH 06/06/19 23:00 08/30/19 18:59 06/16/19 11:25 Allopurinol (allopurinoL) 300 mg DAILY NG 06/08/19 09:30 07/08/19 09:29 06/16/19 08:41 Chlorhexidine Gluconate (Michelle-Hex 2%) 1 applic DAILY@2000 TOPIC 06/07/19 20:00 09/05/19 19:59 06/15/19 20:32 Docusate Sodium (Colace) 100 mg THREE TIMES A DAY NG 06/07/19 13:00 07/07/19 12:59 06/16/19 08:41 Dopamine HCl/ Dextrose 250 ml @ 0 mls/hr Q24H PRN IV For hypotension 06/13/19 08:15 09/11/19 08:14 Enoxaparin Sodium (Lovenox) 30 mg DAILY SUBQ 06/07/19 09:00 08/27/19 08:59 06/16/19 08:44 Epoetin Aftab (Epoetin Aftab(ESRD on dialysis)) 10,000 unit FRI-FRI-FRI SUBQ 06/07/19 21:00 08/31/19 20:59 06/14/19 20:58 Fentanyl Citrate 2500 mcg/Sodium Chloride 250 ml @ 0 mls/hr Q24H IV 06/13/19 07:00 06/20/19 06:59 06/16/19 03:15 Hydralazine HCl (Apresoline) 10 mg Q4H PRN IV Blood pressure over 160 systol 06/07/19 10:15 09/05/19 10:14 Midodrine (Pro-Amatine) 10 mg THREE TIMES A DAY NG 06/09/19 13:00 09/07/19 12:59 06/16/19 08:41 Norepinephrine Bitartrate 16 mg/ Dextrose 566 ml @ 0 mls/hr Q24H IV 06/13/19 09:45 07/13/19 09:44 06/16/19 07:25 Pantoprazole (Protonix) 40 mg Q12HR IVP 06/07/19 21:00 07/07/19 08:59 06/16/19 08:40 Piperacillin Sod/ Tazobactam Sod 2.25 gm/Dextrose 55 ml @ 110 mls/hr Q8HR IVPB 06/13/19 14:00 06/18/19 13:59 06/16/19 06:39 Salmeterol Xinafoate/ Fluticasone (Advair 100/50 Diskus) 1 puffs BID INH 06/07/19 09:00 08/27/19 08:59 06/11/19 09:14 Sevelamer Carbonate (Renvela) 1,600 mg Q6HR NG 06/14/19 12:00 09/05/19 12:59 06/16/19 06:40 Vancomycin HCl (Vanco rx to dose) 1 ea DAILY PRN MISC Per rx protocol 06/13/19 11:45 07/13/19 11:44 Vasopressin 100 units/Sodium Chloride 100 ml @ 0 mls/hr Q24H IV 06/12/19 11:00 07/12/19 10:59 06/15/19 11:08 Last 24 Hour Vital Signs Date Time Temp Pulse Resp B/P (MAP) Pulse Ox O2 Delivery O2 Flow Rate FiO2 06/16/19 11:00 84 26 100 Mechanical Ventilator 40 84 29 50 06/16/19 11:00 76 27 110/60 (77) 99 06/16/19 10:00 77 26 129/60 (83) 98 06/16/19 09:30 75 25 165/75 (105) 100 06/16/19 09:11 99.8 06/16/19 09:00 79 31 121/60 (80) 99 06/16/19 08:30 80 27 117/56 (76) 98 06/16/19 08:00 100.1 81 26 109/58 (75) 98 06/16/19 08:00 Mechanical Ventilator 06/16/19 08:00 40 06/16/19 08:00 74 06/16/19 07:30 86 25 124/62 (82) 100 20 07:25 112/62 06/16/19 07:23 81 29 100 Mechanical Ventilator 40 84 29 50 06/16/19 07:00 80 30 115/59 (77) 98 06/16/19 07:00 26 Mechanical Ventilator 40 06/16/19 06:45 117/62 06/16/19 06:30 80 30 129/61 (83) 98 06/16/19 06:00 121/51 06/16/19 06:00 26 Mechanical Ventilator 40 06/16/19 06:00 79 30 121/59 (79) 98 06/16/19 05:30 80 25 121/60 (80) 98 06/16/19 05:19 87 29 100 Mechanical Ventilator 50 84 29 50 06/16/19 05:12 99.0 06/16/19 05:00 82 26 122/59 (80) 99 06/16/19 05:00 122/59 06/16/19 05:00 26 Mechanical Ventilator 40 06/16/19 04:30 85 26 106/55 (72) 97 06/16/19 04:00 74 06/16/19 04:00 40 06/16/19 04:00 123/61 06/16/19 04:00 26 Mechanical Ventilator 60 06/16/19 04:00 100.3 74 28 123/61 (81) 100 06/16/19 04:00 Mechanical Ventilator 06/16/19 03:30 74 28 118/62 (80) 100 06/16/19 03:15 26 Mechanical Ventilator 60 06/16/19 03:00 74 26 118/61 (80) 100 06/16/19 03:00 118/61 06/16/19 03:00 26 Mechanical Ventilator 60 06/16/19 02:30 73 25 123/62 (82) 100 06/16/19 02:00 70 29 117/63 (81) 100 06/16/19 02:00 117/63 06/16/19 02:00 26 Mechanical Ventilator 60 06/16/19 01:30 71 25 115/66 (82) 100 5/6/20 01:16 87 28 100 Mechanical Ventilator 50 84 29 50 5/6/20 01:00 72 26 112/60 (77) 100 5/6/20 01:00 112/60 5/6/20 01:00 26 Mechanical Ventilator 60 5/6/20 00:30 74 25 106/56 (73) 100 5/6/20 00:00 99.0 73 19 104/56 (72) 100 5/6/20 00:00 Mechanical Ventilator 5/6/20 00:00 104/56 5/6/20 00:00 26 Mechanical Ventilator 60 5/20 23:30 71 26 104/55 (71) 100 5/5/20 23:03 84 29 100 Mechanical Ventilator 50 84 29 50 5/5/20 23:00 103/46 5/5/20 23:00 26 Mechanical Ventilator 60 5/5/20 23:00 84 26 103/46 (65) 98 5/5/20 22:30 80 8 98/58 (71) 100 5//20 22:00 82 12 104/60 (75) 100 5//20 22:00 104/60 5/5/20 22:00 25 Mechanical Ventilator 60 5//20 21:30 83 12 114/64 (81) 100 5/5/20 21:00 116/75 5/5/20 21:00 26 Mechanical Ventilator 60 5//20 21:00 77 29 116/75 (89) 100 5/5/20 20:30 77 23 123/70 (87) 100 5/5/20 20:00 98.3 78 16 124/72 (89) 100 5/5/20 20:00 116/75 5/5/20 20:00 26 Mechanical Ventilator 60 5/5/20 20:00 60 5/5/20 20:00 Mechanical Ventilator 5/5/20 20:00 74 5/5/20 19:30 87 33 111/73 (86) 100 5/5/20 19:16 81 30 99 Mechanical Ventilator 50 84 29 100 5/5/20 19:00 122/69 5/5/20 19:00 26 Mechanical Ventilator 60 5/5/20 19:00 78 22 122/69 (86) 100 5/5/20 18:30 96.2 78 32 120/69 (86) 100 5/5/20 18:00 72 32 117/65 (82) 100 520 18:00 120/65 520 18:00 26 Mechanical Ventilator 60 06/15/19 18:00 74 31 117/65 (82) 100 20 17:30 80 26 107/64 (78) 100 20 17:30 76 24 107/64 (78) 99 06/15/19 17:10 26 60 5 17:09 60/43 06/15/19 17:00 69 26 60/37 (45) 98 20 17:00 68 24 60/37 (45) 97 06/15/19 16:30 65 25 142/67 (92) 100 06/15/19 16:00 98.8 63 26 140/78 (98) 100 06/15/19 16:00 69 06/15/19 16:00 140/78 06/15/19 16:00 29 Mechanical Ventilator 60 06/15/19 16:00 60 06/15/19 15:30 60 26 92/49 (63) 100 06/15/19 15:30 65 25 71/47 (55) 100 06/15/19 15:24 66 30 50 06/15/19 15:00 67 27 126/67 (86) 100 06/15/19 15:00 126/67 06/15/19 15:00 26 Mechanical Ventilator 60 06/15/19 15:00 64 28 126/67 (86) 100 06/15/19 14:30 68 27 103/58 (73) 100 06/15/19 14:30 66 26 103/58 (73) 100 06/15/19 14:00 70 26 91/52 (65) 98 20 14:00 126/67 20 14:00 26 Mechanical Ventilator 60 06/15/19 13:30 73 26 95/53 (67) 99 20 13:00 70 26 91/52 (65) 99 20 13:00 93/63 5 13:00 26 Mechanical Ventilator 60 06/15/19 12:02 75 26 130/69 (89) 98 06/15/19 12:00 73 06/15/19 12:00 60 06/15/19 12:00 132/72 5/20 12:00 28 Mechanical Ventilator 60 06/15/19 11:22 71 31 50 06/15/19 11:08 130/76 06/15/19 11:08 26 Mechanical Ventilator 60 06/15/19 11:00 73 26 181/76 (111) 100 06/15/19 11:00 181/76 06/15/19 11:00 Mechanical Ventilator 60 06/15/19 10:30 72 26 166/69 (101) 97 06/15/19 10:00 75 26 66/41 (49) 100 06/15/19 10:00 66/41 06/15/19 10:00 27 Mechanical Ventilator 60 06/15/19 09:30 76 27 156/85 (108) 99 06/15/19 09:00 148/75 06/15/19 09:00 29 Mechanical Ventilator 60 06/15/19 09:00 99.8 77 25 148/75 (99) 99 06/15/19 08:00 60 06/15/19 08:00 80 06/15/19 08:00 141/68 06/15/19 08:00 26 Mechanical Ventilator 60 06/15/19 08:00 91 26 141/68 (92) 100 06/15/19 07:25 83 26 100 Mechanical Ventilator 50 90 26 50 06/15/19 07:00 83 30 147/73 (97) 99 06/15/19 07:00 147/73 06/15/19 07:00 30 Mechanical Ventilator 60 06/15/19 06:30 86 29 139/69 (92) 99 06/15/19 06:00 99.9 88 29 141/67 (91) 99 06/15/19 06:00 141/67 06/15/19 06:00 29 Mechanical Ventilator 60 06/15/19 05:30 90 30 132/68 (89) 99 06/15/19 05:00 139/68 06/15/19 05:00 31 Mechanical Ventilator 60 06/15/19 05:00 88 31 139/68 (91) 99 06/15/19 04:58 111 26 60 06/15/19 04:30 89 26 138/65 (89) 98 06/15/19 04:12 26 Mechanical Ventilator 60 06/15/19 04:00 Mechanical Ventilator 06/15/19 04:00 109 06/15/19 04:00 130/57 06/15/19 04:00 26 Mechanical Ventilator 60 06/15/19 04:00 101.3 109 26 130/57 (81) 98 06/15/19 04:00 60 06/15/19 03:48 118/58 06/15/19 03:30 112 32 118/58 (78) 99 06/15/19 03:00 112/63 06/15/19 03:00 32 Mechanical Ventilator 60 06/15/19 03:00 111 32 112/63 (79) 100 06/15/19 02:31 104 26 100 Mechanical Ventilator 50 109 26 50 06/15/19 02:30 112 29 116/64 (81) 100 06/15/19 02:00 110 26 99/61 (74) 98 06/15/19 02:00 99/61 06/15/19 02:00 26 Mechanical Ventilator 100 06/15/19 01:30 117 26 100/58 (72) 98 06/15/19 01:00 117 28 117/64 (81) 98 06/15/19 01:00 117/64 06/15/19 01:00 26 Mechanical Ventilator 60 06/15/19 00:40 114 26 60 06/15/19 00:30 115 28 114/64 (81) 98 06/15/19 00:00 116 06/15/19 00:00 119/64 06/15/19 00:00 27 Mechanical Ventilator 60 06/15/19 00:00 118 27 119/64 (82) 98 06/15/19 00:00 60 06/15/19 00:00 Mechanical Ventilator 06/14/19 23:30 116 26 121/61 (81) 98 06/14/19 23:00 122 29 123/66 (85) 98 06/14/19 23:00 123/66 06/14/19 23:00 29 Mechanical Ventilator 60 06/14/19 22:30 119 27 121/66 (84) 100 06/14/19 22:30 109 26 100 Mechanical Ventilator 50 112 26 60 06/14/19 22:00 126/73 06/14/19 22:00 24 Mechanical Ventilator 60 06/14/19 22:00 111 24 126/73 (90) 100 06/14/19 21:30 116 22 135/67 (89) 100 06/14/19 21:14 111 26 60 06/14/19 21:00 115 25 127/65 (85) 100 06/14/19 21:00 122/64 06/14/19 21:00 26 Mechanical Ventilator 60 06/14/19 20:30 120 27 118/65 (82) 100 06/14/19 20:13 126 26 100 Mechanical Ventilator 60 122 27 60 06/14/19 20:00 118/59 06/14/19 20:00 27 Mechanical Ventilator 60 06/14/19 20:00 Mechanical Ventilator 06/14/19 20:00 122 06/14/19 20:00 60 06/14/19 20:00 101.1 123 26 118/59 (78) 99 06/14/19 19:30 124 26 125/68 (87) 100 06/14/19 19:00 122 32 149/77 (101) 99 06/14/19 18:40 115 06/14/19 18:40 116/62 06/14/19 18:30 126 26 116/62 (80) 97 06/14/19 18:00 127 26 160/69 (99) 98 06/14/19 17:30 123 26 115/59 (77) 98 06/14/19 17:00 85 28 140/64 (89) 99 06/14/19 16:30 84 28 146/72 (96) 99 06/14/19 16:00 Mechanical Ventilator 06/14/19 16:00 77 06/14/19 16:00 99.6 81 29 117/59 (78) 99 06/14/19 16:00 60 06/14/19 15:49 28 Mechanical Ventilator 60 06/14/19 15:30 77 26 110/55 (73) 97 06/14/19 15:00 82 26 116/58 (77) 96 06/14/19 14:30 83 29 107/54 (71) 97 06/14/19 14:00 84 30 114/64 (81) 96 06/14/19 13:30 82 30 117/60 (79) 97 06/14/19 13:00 81 29 106/57 (73) 97 06/14/19 12:30 84 26 100/58 (72) 96 06/14/19 12:00 Mechanical Ventilator 06/14/19 12:00 89 06/14/19 12:00 60 5/4/20 12:00 99.2 85 26 94/58 (70) 94 Intake and Output 06/15/19 06/16/19 19:00 07:00 Intake Total 987.34 ml 827.74 ml Output Total 0 ml 20 ml Balance 987.34 ml 807.74 ml Free Water 120 ml 60 ml IV Total 747.34 ml 647.74 ml Tube Feeding 120 ml 120 ml Output Urine Total 0 ml 20 ml Labs Test 06/14/19 05:30 06/15/19 04:00 06/15/19 04:10 06/16/19 04:00 White Blood Count 23.2 K/UL (4.8-10.8) 19.2 K/UL (4.8-10.8) 16.2 K/UL (4.8-10.8) Red Blood Count 2.85 M/UL (4.70-6.10) 2.45 M/UL (4.70-6.10) 2.31 M/UL (4.70-6.10) Hemoglobin 8.7 G/DL (14.2-18.0) 7.7 G/DL (14.2-18.0) 7.1 G/DL (14.2-18.0) Hematocrit 26.0 % (42.0-52.0) 22.5 % (42.0-52.0) 21.3 % (42.0-52.0) Mean Corpuscular Volume 92 FL (80-99) 92 FL (80-99) 93 FL (80-99) Mean Corpuscular Hemoglobin 30.5 PG (27.0-31.0) 31.4 PG (27.0-31.0) 31.0 PG (27.0-31.0) Mean Corpuscular Hemoglobin Concent 33.4 G/DL (32.0-36.0) 34.2 G/DL (32.0-36.0) 33.5 G/DL (32.0-36.0) Red Cell Distribution Width 16.0 % (11.6-14.8) 16.5 % (11.6-14.8) 19.9 % (11.6-14.8) Platelet Count 122 K/UL (150-450) 111 K/UL (150-450) 110 K/UL (150-450) Mean Platelet Volume 7.3 FL (6.5-10.1) 7.0 FL (6.5-10.1) 8.3 FL (6.5-10.1) Neutrophils (%) (Auto) % (45.0-75.0) % (45.0-75.0) % (45.0-75.0) Lymphocytes (%) (Auto) % (20.0-45.0) % (20.0-45.0) % (20.0-45.0) Monocytes (%) (Auto) % (1.0-10.0) % (1.0-10.0) % (1.0-10.0) Eosinophils (%) (Auto) % (0.0-3.0) % (0.0-3.0) % (0.0-3.0) Basophils (%) (Auto) % (0.0-2.0) % (0.0-2.0) % (0.0-2.0) Differential Total Cells Counted 100 100 100 Neutrophils % (Manual) 80 % (45-75) 82 % (45-75) 83 % (45-75) Lymphocytes % (Manual) 8 % (20-45) 4 % (20-45) 6 % (20-45) Monocytes % (Manual) 11 % (1-10) 14 % (1-10) 11 % (1-10) Eosinophils % (Manual) 1 % (0-3) 0 % (0-3) 0 % (0-3) Basophils % (Manual) 0 % (0-2) 0 % (0-2) 0 % (0-2) Band Neutrophils 0 % (0-8) 0 % (0-8) 0 % (0-8) Nucleated Red Blood Cells 1 /100 WBC 2 /100 WBC Platelet Estimate Decreased Decreased Decreased Platelet Morphology Normal Normal Normal Prothrombin Time 13.2 SEC (9.30-11.50) Prothromb Time International Ratio 1.3 (0.9-1.1) Activated Partial Thromboplast Time 33 SEC (23-33) Sodium Level 128 MMOL/L (136-145) 134 MMOL/L (136-145) 130 MMOL/L (136-145) Potassium Level 5.0 MMOL/L (3.5-5.1) 4.5 MMOL/L (3.5-5.1) 4.3 MMOL/L (3.5-5.1) Chloride Level 87 MMOL/L (98-107) 93 MMOL/L (98-107) 90 MMOL/L (98-107) Carbon Dioxide Level 21 MMOL/L (21-32) 25 MMOL/L (21-32) 24 MMOL/L (21-32) Anion Gap 20 mmol/L (5-15) 16 mmol/L (5-15) 16 mmol/L (5-15) Blood Urea Nitrogen 96 mg/dL (7-18) 62 mg/dL (7-18) 71 mg/dL (7-18) Creatinine 11.6 MG/DL (0.55-1.30) 8.7 MG/DL (0.55-1.30) 9.9 MG/DL (0.55-1.30) Estimat Glomerular Filtration Rate 4.4 mL/min (>60) 6.2 mL/min (>60) 5.3 mL/min (>60) Glucose Level 275 MG/DL (74-106) 251 MG/DL (74-106) 225 MG/DL (74-106) Uric Acid 8.1 MG/DL (2.6-7.2) 5.3 MG/DL (2.6-7.2) 6.6 MG/DL (2.6-7.2) Calcium Level 8.4 MG/DL (8.5-10.1) 8.0 MG/DL (8.5-10.1) 8.3 MG/DL (8.5-10.1) Phosphorus Level 8.3 MG/DL (2.5-4.9) 6.0 MG/DL (2.5-4.9) 6.5 MG/DL (2.5-4.9) Magnesium Level 2.2 MG/DL (1.8-2.4) 2.1 MG/DL (1.8-2.4) 2.1 MG/DL (1.8-2.4) Total Bilirubin 0.4 MG/DL (0.2-1.0) 0.4 MG/DL (0.2-1.0) 0.4 MG/DL (0.2-1.0) Aspartate Amino Transf (AST/SGOT) 91 U/L (15-37) 75 U/L (15-37) 46 U/L (15-37) Alanine Aminotransferase (ALT/SGPT) 44 U/L (12-78) 39 U/L (12-78) 29 U/L (12-78) Alkaline Phosphatase 88 U/L (46-116) 82 U/L (46-116) 76 U/L (46-116) C-Reactive Protein, Quantitative 25.2 mg/dL (0.00-0.90) 20.6 mg/dL (0.00-0.90) 24.1 mg/dL (0.00-0.90) Pro-B-Type Natriuretic Peptide 92281 pg/mL (0-125) 32794 pg/mL (0-125) 67751 pg/mL (0-125) Total Protein 7.7 G/DL (6.4-8.2) 6.9 G/DL (6.4-8.2) 7.3 G/DL (6.4-8.2) Albumin 2.2 G/DL (3.4-5.0) 2.3 G/DL (3.4-5.0) 2.0 G/DL (3.4-5.0) Globulin 5.5 g/dL 4.6 g/dL 5.3 g/dL Albumin/Globulin Ratio 0.4 (1.0-2.7) 0.5 (1.0-2.7) 0.4 (1.0-2.7) Urine Eosinophils None seen (NONE SEEN) Hypochromasia 3+ 1+ Anisocytosis 1+ 2+ Spherocytes 1+ Gamma Glutamyl Transpeptidase 12 U/L (5-85) Random Vancomycin Level 22.0 ug/mL Polychromasia 2+ Height (Feet): 6 Height (Inches): 1.00 Weight (Pounds): 209 Objective Sp02 EP Interpretation: reviewed, normal General: confused, sedated Heent: bilateral eye normal inspection, bilateral eye PERRL ++Ng Respiratory: normal breath sounds, no respiratory distress,intubated+++ Cardiovascular: regular rate, rhythm, no edema Gastrointestinal: normal inspection, soft, non-distended Rectal: deferred Musculoskeletal: normal range of motion, non-tender Neurologic: alert, motor strength/tone normal, sensory intact, responsive, speech normal Skin: Decubitus/Ulcer - See RN skin exam. : jamaal+ Greg Cabral MD June 16, 2019 11:35
--- NOTE | 2019-06-16 12:30 | Nephrology Progress Note ---
Assessment/Plan Problem List: (1) CASSANDRA (acute kidney injury) (2) Anemia in chronic kidney disease (CKD) (3) HTN (hypertension) (4) COVID-19 Assessment Acute renal failure most likely superimposed on chronic kidney disease Suspected COVID-19 virus infection Possible Pneumonia, lymphopenia, elevated AST Cardiomegaly, possible CHF COPD Hypertension Anemia, most likely related to chronic kidney disease Plan June 15: Due for dialysis today Labs reviewed Discussed with RN Transfuse 1 unit of packed RBCs today for low hemoglobin of 7.1 June 5: Blood pressure well maintained Receive dialysis June 13 next hemodialysis June 15June 4: Discussed with RN in ICU Patient did not receive proper dialysis yesterday due to dialysis catheter malfunction Catheter to be adjusted today and dialyzed to be resumed today Continue per consultants Positive for COVID 28 June 2: Patient now intubated on mechanical ventilation Discussed with SHANIQUE Yuen, today June 12 Patient received dialysis yesterday June 10 next hemodialysis June 12 Blood pressure better maintained Today's labs reviewed Continue per consultants Previously patient received dialysis last evening June 05, next dialysis June 07 which was incomplete due to patient's hypotension Will start on midodrine for blood pressure support. Meanwhile continue other pressors as needed Previously Patient is doing poorly, septic, white blood cells are rising, Hypotension somewhat improved We will keep n.p.o. , NG tube for medications, and change medication to IV as needed Patient remains full code Monitor vancomycin level Previously: Patient pulled out his femoral catheter yesterday June 03 which was reinserted by Dr. Mast Patient scheduled for dialysis again June 04, which again was not done due to dialysis nurse citing catheter malfunction Meanwhile continue management per ID, pulmonary , and psych. Meanwhile white blood cell count is rising. Patient blood pressure borderline low. Will check ABG Previously May 31 : I believe patient need dialysis treatment He however needs to competency assessment if can make decisions or not I will communicate with Dr. Mulligan Previously: Per pulmonary and ID advice Adjust blood pressure medication Renal diet Anemia work-up 2D echocardiogram refused Kidney ultrasound refused Jules catheter Urine studies Per orders Subjective ROS Limited/Unobtainable: Yes Objective Objective Last 24 Hour Vital Signs Date Time Temp Pulse Resp B/P (MAP) Pulse Ox O2 Delivery O2 Flow Rate FiO2 06/16/19 11:00 84 26 100 Mechanical Ventilator 40 84 29 50 06/16/19 11:00 110/60 5/6/20 11:00 26 Mechanical Ventilator 40 06/16/19 11:00 76 27 110/60 (77) 99 //20 10:00 77 26 129/60 (83) 98 5/6/20 10:00 129/60 20 10:00 24 Mechanical Ventilator 40 06/16/19 09:30 75 25 165/75 (105) 100 520 09:11 99.8 06/16/19 09:00 79 31 121/60 (80) 99 20 09:00 121/60 20 09:00 25 Mechanical Ventilator 40 06/16/19 08:30 80 27 117/56 (76) 98 20 08:00 100.1 81 26 109/58 (75) 98 06/16/19 08:00 Mechanical Ventilator 06/16/19 08:00 40 06/16/19 08:00 109/58 20 08:00 26 Mechanical Ventilator 40 06/16/19 08:00 74 06/16/19 07:30 86 25 124/62 (82) 100 20 07:25 112/62 06/16/19 07:23 81 29 100 Mechanical Ventilator 40 84 29 50 20 07:00 80 30 115/59 (77) 98 06/15/20 07:00 26 Mechanical Ventilator 40 06/16/19 06:45 117/62 20 06:30 80 30 129/61 (83) 98 //20 06:00 121/51 5/20 06:00 26 Mechanical Ventilator 40 06/16/19 06:00 79 30 121/59 (79) 98 20 05:30 80 25 121/60 (80) 98 06/15/20 05:19 87 29 100 Mechanical Ventilator 50 84 29 50 5//20 05:12 99.0 20 05:00 82 26 122/59 (80) 99 20 05:00 122/59 20 05:00 26 Mechanical Ventilator 40 06/16/19 04:30 85 26 106/55 (72) 97 06/15/20 04:00 74 06/16/19 04:00 40 20 04:00 123/61 5/6/20 04:00 26 Mechanical Ventilator 60 06/16/19 04:00 100.3 74 28 123/61 (81) 100 06/16/19 04:00 Mechanical Ventilator 06/16/19 03:30 74 28 118/62 (80) 100 06/16/19 03:15 26 Mechanical Ventilator 60 06/16/19 03:00 74 26 118/61 (80) 100 06/16/19 03:00 118/61 06/16/19 03:00 26 Mechanical Ventilator 60 06/16/19 02:30 73 25 123/62 (82) 100 06/16/19 02:00 70 29 117/63 (81) 100 06/16/19 02:00 117/63 06/16/19 02:00 26 Mechanical Ventilator 60 06/16/19 01:30 71 25 115/66 (82) 100 06/16/19 01:16 87 28 100 Mechanical Ventilator 50 84 29 50 06/16/19 01:00 72 26 112/60 (77) 100 06/16/19 01:00 112/60 06/16/19 01:00 26 Mechanical Ventilator 60 06/16/19 00:30 74 25 106/56 (73) 100 06/16/19 00:00 99.0 73 19 104/56 (72) 100 06/16/19 00:00 Mechanical Ventilator 06/16/19 00:00 104/56 06/16/19 00:00 26 Mechanical Ventilator 60 06/15/19 23:30 71 26 104/55 (71) 100 06/15/19 23:03 84 29 100 Mechanical Ventilator 50 84 29 50 06/15/19 23:00 103/46 06/15/19 23:00 26 Mechanical Ventilator 60 06/15/19 23:00 84 26 103/46 (65) 98 06/15/19 22:30 80 8 98/58 (71) 100 20 22:00 82 12 104/60 (75) 100 20 22:00 104/60 06/15/19 22:00 25 Mechanical Ventilator 60 06/15/19 21:30 83 12 114/64 (81) 100 06/15/19 21:00 116/75 5/20 21:00 26 Mechanical Ventilator 60 20 21:00 77 29 116/75 (89) 100 20 20:30 77 23 123/70 (87) 100 5/20 20:00 98.3 78 16 124/72 (89) 100 20 20:00 116/75 520 20:00 26 Mechanical Ventilator 60 520 20:00 60 520 20:00 Mechanical Ventilator 5/20 20:00 74 5/20 19:30 87 33 111/73 (86) 100 06/15/19 19:16 81 30 99 Mechanical Ventilator 50 84 29 100 20 19:00 122/69 5 19:00 26 Mechanical Ventilator 60 20 19:00 78 22 122/69 (86) 100 06/15/19 18:30 96.2 78 32 120/69 (86) 100 20 18:00 72 32 117/65 (82) 100 20 18:00 120/65 06/15/19 18:00 26 Mechanical Ventilator 60 06/15/19 18:00 74 31 117/65 (82) 100 06/15/19 17:30 80 26 107/64 (78) 100 06/15/19 17:30 76 24 107/64 (78) 99 06/15/19 17:10 26 60 06/15/19 17:09 60/43 06/15/19 17:00 69 26 60/37 (45) 98 06/15/19 17:00 68 24 60/37 (45) 97 20 16:30 65 25 142/67 (92) 100 06/15/19 16:00 98.8 63 26 140/78 (98) 100 06/15/19 16:00 69 20 16:00 140/78 06/15/19 16:00 29 Mechanical Ventilator 60 20 16:00 60 06/15/19 15:30 60 26 92/49 (63) 100 20 15:30 65 25 71/47 (55) 100 20 15:24 66 30 50 5/20 15:00 67 27 126/67 (86) 100 20 15:00 126/67 06/15/19 15:00 26 Mechanical Ventilator 60 06/15/19 15:00 64 28 126/67 (86) 100 5/5/20 14:30 68 27 103/58 (73) 100 06/15/19 14:30 66 26 103/58 (73) 100 06/15/19 14:00 70 26 91/52 (65) 98 06/15/19 14:00 126/67 06/15/19 14:00 26 Mechanical Ventilator 60 06/15/19 13:30 73 26 95/53 (67) 99 06/15/19 13:00 70 26 91/52 (65) 99 06/15/19 13:00 93/63 06/15/19 13:00 26 Mechanical Ventilator 60 Intake and Output 06/15/19 06/16/19 19:00 07:00 Intake Total 987.34 ml 827.74 ml Output Total 0 ml 20 ml Balance 987.34 ml 807.74 ml Free Water 120 ml 60 ml IV Total 747.34 ml 647.74 ml Tube Feeding 120 ml 120 ml Output Urine Total 0 ml 20 ml Laboratory Tests 06/16/19 04:00: White Blood Count 16.2H, Red Blood Count 2.31L, Hemoglobin 7.1L, Hematocrit 21.3L, Mean Corpuscular Volume 93, Mean Corpuscular Hemoglobin 31.0, Mean Corpuscular Hemoglobin Concent 33.5, Red Cell Distribution Width 19.9H, Platelet Count 110L, Mean Platelet Volume 8.3, Neutrophils (%) (Auto) , Lymphocytes (%) (Auto) , Monocytes (%) (Auto) , Eosinophils (%) (Auto) , Basophils (%) (Auto) , Differential Total Cells Counted 100, Neutrophils % ( Manual) 83H, Lymphocytes % (Manual) 6L, Monocytes % (Manual) 11H, Eosinophils % (Manual) 0, Basophils % (Manual) 0, Band Neutrophils 0, Platelet Estimate DecreasedL, Platelet Morphology Normal, Polychromasia 2+, Hypochromasia 1+, Anisocytosis 2+, Sodium Level 130L, Potassium Level 4.3, Chloride Level 90L, Carbon Dioxide Level 24, Anion Gap 16H, Blood Urea Nitrogen 71H, Creatinine 9.9H , Estimat Glomerular Filtration Rate 5.3, Glucose Level 225H, Uric Acid 6.6, Calcium Level 8.3L, Phosphorus Level 6.5H, Magnesium Level 2.1, Total Bilirubin 0.4, Aspartate Amino Transf (AST/SGOT) 46H, Alanine Aminotransferase (ALT/SGPT) 29, Alkaline Phosphatase 76, C-Reactive Protein, Quantitative 24.1H, Pro-B-Type Natriuretic Peptide 78986U, Total Protein 7.3, Albumin 2.0L, Globulin 5.3, Albumin/Globulin Ratio 0.4L Height (Feet): 6 Height (Inches): 1.00 Weight (Pounds): 209 General Appearance: no apparent distress EENT: other - Remains intubated on ventilator Cardiovascular: normal rate - Right mid 70s Respiratory/Chest: decreased breath sounds Abdomen: distended Objective No change Mic Cole MD June 16, 2019 12:30
--- NOTE | 2019-06-16 13:48 | Cardiac Electrophysiology PN ---
Assessment/Plan Assessment/Plan 1. Elevated troponin. Troponin on May 27 and May 30 were negative; however , on June 01, it was elevated at 0.074. Repeat 0.05. Likely due to renal failure. On Aspirin. Echo EF 60%. No chest pain. 2. Septic shock. On Levo 3. End-stage renal disease, on hemodialysis per Dr. Cole. 4. Respiratory failure due to COVID-19 positive pneumonia. On the Vent with 40% Fio2. Fu by Dr. Ted Leyva and Dr. Mckeon. 5. MRSA carrier. 6. COPD. 7. Anemia. 8. Depression. DW RN Subjective Subjective In Covid isolation in ICU, intubated on 40% Fio2. In SR. S/P 2 units of PRBC and HD . On Levophed 20 and off Vasopressin. Objective Last 24 Hour Vital Signs Date Time Temp Pulse Resp B/P (MAP) Pulse Ox O2 Delivery O2 Flow Rate FiO2 06/16/19 13:00 129/62 06/16/19 13:00 24 Mechanical Ventilator 40 06/16/19 13:00 73 26 129/62 (84) 98 06/16/19 12:30 76 26 76/41 (53) 98 06/16/19 12:00 40 06/16/19 12:00 116/58 06/16/19 12:00 24 Mechanical Ventilator 40 06/16/19 12:00 Mechanical Ventilator 06/16/19 12:00 99.9 76 26 116/58 (77) 97 06/16/19 12:00 76 06/16/19 11:30 77 26 110/60 (77) 98 06/16/19 11:00 84 26 100 Mechanical Ventilator 40 84 29 50 06/16/19 11:00 110/60 06/16/19 11:00 26 Mechanical Ventilator 40 06/16/19 11:00 76 27 110/60 (77) 99 06/16/19 10:30 79 28 107/53 (71) 99 06/16/19 10:00 77 26 129/60 (83) 98 20 10:00 129/60 06/16/19 10:00 24 Mechanical Ventilator 40 06/16/19 09:30 75 25 165/75 (105) 100 06/16/19 09:11 99.8 06/16/19 09:00 79 31 121/60 (80) 99 06/16/19 09:00 121/60 06/16/19 09:00 25 Mechanical Ventilator 40 06/16/19 08:30 80 27 117/56 (76) 98 06/16/19 08:00 100.1 81 26 109/58 (75) 98 20 08:00 Mechanical Ventilator 06/16/19 08:00 40 06/16/19 08:00 109/58 06/16/19 08:00 26 Mechanical Ventilator 40 06/16/19 08:00 74 20 07:30 86 25 124/62 (82) 100 06/16/19 07:25 112/62 06/16/19 07:23 81 29 100 Mechanical Ventilator 40 84 29 50 06/16/19 07:00 80 30 115/59 (77) 98 06/16/19 07:00 26 Mechanical Ventilator 40 06/16/19 06:45 117/62 06/16/19 06:30 80 30 129/61 (83) 98 06/16/19 06:00 121/51 06/16/19 06:00 26 Mechanical Ventilator 40 06/16/19 06:00 79 30 121/59 (79) 98 20 05:30 80 25 121/60 (80) 98 06/16/19 05:19 87 29 100 Mechanical Ventilator 50 84 29 50 06/16/19 05:12 99.0 06/16/19 05:00 82 26 122/59 (80) 99 20 05:00 122/59 06/16/19 05:00 26 Mechanical Ventilator 40 06/16/19 04:30 85 26 106/55 (72) 97 06/16/19 04:00 74 20 04:00 40 06/16/19 04:00 123/61 20 04:00 26 Mechanical Ventilator 60 06/16/19 04:00 100.3 74 28 123/61 (81) 100 06/16/19 04:00 Mechanical Ventilator 06/16/19 03:30 74 28 118/62 (80) 100 20 03:15 26 Mechanical Ventilator 60 20 03:00 74 26 118/61 (80) 100 06/16/19 03:00 118/61 20 03:00 26 Mechanical Ventilator 60 20 02:30 73 25 123/62 (82) 100 20 02:00 70 29 117/63 (81) 100 20 02:00 117/63 20 02:00 26 Mechanical Ventilator 60 20 01:30 71 25 115/66 (82) 100 /20 01:16 87 28 100 Mechanical Ventilator 50 84 29 50 20 01:00 72 26 112/60 (77) 100 20 01:00 112/60 20 01:00 26 Mechanical Ventilator 60 20 00:30 74 25 106/56 (73) 100 20 00:00 99.0 73 19 104/56 (72) 100 06/16/19 00:00 Mechanical Ventilator 06/16/19 00:00 104/56 20 00:00 26 Mechanical Ventilator 60 06/15/19 23:30 71 26 104/55 (71) 100 20 23:03 84 29 100 Mechanical Ventilator 50 84 29 50 20 23:00 103/46 5/20 23:00 26 Mechanical Ventilator 60 20 23:00 84 26 103/46 (65) 98 /20 22:30 80 8 98/58 (71) 100 20 22:00 82 12 104/60 (75) 100 20 22:00 104/60 5//20 22:00 25 Mechanical Ventilator 60 20 21:30 83 12 114/64 (81) 100 20 21:00 116/75 5/5/20 21:00 26 Mechanical Ventilator 60 5/20 21:00 77 29 116/75 (89) 100 5/5/20 20:30 77 23 123/70 (87) 100 5//20 20:00 98.3 78 16 124/72 (89) 100 5/5/20 20:00 116/75 5/5/20 20:00 26 Mechanical Ventilator 60 5/5/20 20:00 60 5/5/20 20:00 Mechanical Ventilator 520 20:00 74 5/5/20 19:30 87 33 111/73 (86) 100 5/20 19:16 81 30 99 Mechanical Ventilator 50 84 29 100 06/15/19 19:00 122/69 5 19:00 26 Mechanical Ventilator 60 06/15/19 19:00 78 22 122/69 (86) 100 06/15/19 18:30 96.2 78 32 120/69 (86) 100 20 18:00 72 32 117/65 (82) 100 06/15/19 18:00 120/65 06/15/19 18:00 26 Mechanical Ventilator 60 06/15/19 18:00 74 31 117/65 (82) 100 06/15/19 17:30 80 26 107/64 (78) 100 06/15/19 17:30 76 24 107/64 (78) 99 06/15/19 17:10 26 60 06/15/19 17:09 60/43 06/15/19 17:00 69 26 60/37 (45) 98 06/15/19 17:00 68 24 60/37 (45) 97 06/15/19 16:30 65 25 142/67 (92) 100 06/15/19 16:00 98.8 63 26 140/78 (98) 100 06/15/19 16:00 69 06/15/19 16:00 140/78 06/15/19 16:00 29 Mechanical Ventilator 60 06/15/19 16:00 60 06/15/19 15:30 60 26 92/49 (63) 100 06/15/19 15:30 65 25 71/47 (55) 100 06/15/19 15:24 66 30 50 06/15/19 15:00 67 27 126/67 (86) 100 06/15/19 15:00 126/67 06/15/19 15:00 26 Mechanical Ventilator 60 06/15/19 15:00 64 28 126/67 (86) 100 06/15/19 14:30 68 27 103/58 (73) 100 06/15/19 14:30 66 26 103/58 (73) 100 06/15/19 14:00 70 26 91/52 (65) 98 06/15/19 14:00 126/67 06/15/19 14:00 26 Mechanical Ventilator 60 Intake and Output 06/15/19 06/16/19 19:00 07:00 Intake Total 987.34 ml 827.74 ml Output Total 0 ml 20 ml Balance 987.34 ml 807.74 ml Free Water 120 ml 60 ml IV Total 747.34 ml 647.74 ml Tube Feeding 120 ml 120 ml Output Urine Total 0 ml 20 ml Laboratory Tests Test 06/16/19 04:00 White Blood Count 16.2 K/UL (4.8-10.8) H Red Blood Count 2.31 M/UL (4.70-6.10) L Hemoglobin 7.1 G/DL (14.2-18.0) L Hematocrit 21.3 % (42.0-52.0) L Mean Corpuscular Volume 93 FL (80-99) Mean Corpuscular Hemoglobin 31.0 PG (27.0-31.0) Mean Corpuscular Hemoglobin Concent 33.5 G/DL (32.0-36.0) Red Cell Distribution Width 19.9 % (11.6-14.8) H Platelet Count 110 K/UL (150-450) L Mean Platelet Volume 8.3 FL (6.5-10.1) Neutrophils (%) (Auto) % (45.0-75.0) Lymphocytes (%) (Auto) % (20.0-45.0) Monocytes (%) (Auto) % (1.0-10.0) Eosinophils (%) (Auto) % (0.0-3.0) Basophils (%) (Auto) % (0.0-2.0) Differential Total Cells Counted 100 Neutrophils % (Manual) 83 % (45-75) H Lymphocytes % (Manual) 6 % (20-45) L Monocytes % (Manual) 11 % (1-10) H Eosinophils % (Manual) 0 % (0-3) Basophils % (Manual) 0 % (0-2) Band Neutrophils 0 % (0-8) Platelet Estimate Decreased L Platelet Morphology Normal Polychromasia 2+ Hypochromasia 1+ Anisocytosis 2+ Sodium Level 130 MMOL/L (136-145) L Potassium Level 4.3 MMOL/L (3.5-5.1) Chloride Level 90 MMOL/L (98-107) L Carbon Dioxide Level 24 MMOL/L (21-32) Anion Gap 16 mmol/L (5-15) H Blood Urea Nitrogen 71 mg/dL (7-18) H Creatinine 9.9 MG/DL (0.55-1.30) H Estimat Glomerular Filtration Rate 5.3 mL/min (>60) Glucose Level 225 MG/DL (74-106) H Uric Acid 6.6 MG/DL (2.6-7.2) Calcium Level 8.3 MG/DL (8.5-10.1) L Phosphorus Level 6.5 MG/DL (2.5-4.9) H Magnesium Level 2.1 MG/DL (1.8-2.4) Total Bilirubin 0.4 MG/DL (0.2-1.0) Aspartate Amino Transf (AST/SGOT) 46 U/L (15-37) H Alanine Aminotransferase (ALT/SGPT) 29 U/L (12-78) Alkaline Phosphatase 76 U/L (46-116) C-Reactive Protein, Quantitative 24.1 mg/dL (0.00-0.90) H Pro-B-Type Natriuretic Peptide 25874 pg/mL (0-125) H Total Protein 7.3 G/DL (6.4-8.2) Albumin 2.0 G/DL (3.4-5.0) L Globulin 5.3 g/dL Albumin/Globulin Ratio 0.4 (1.0-2.7) L Microbiology Date/Time Source Procedure Growth Status 06/14/19 14:20 Sputum Gram Stain - Final Complete 06/14/19 14:20 Sputum Sputum Culture - Final NORMAL UPPER RESPIRATORY WALDEMAR PRESENT Complete Objective HEAD AND NECK: No JVD.Orally intubated LUNGS: Decreased breath sounds. CARDIOVASCULAR: Regular S1 and S2. Tachycardic. ABDOMEN: Soft. EXTREMITIES: No pitting edema. New Left FV Gio Engle MD June 16, 2019 13:48
--- NOTE | 2019-06-16 17:40 | General Progress Note ---
Assessment/Plan Problem List: (1) Anemia ICD Codes: D64.9 - Anemia, unspecified SNOMED: 423893033 (2) Renal failure ICD Codes: N19 - Unspecified kidney failure SNOMED: 92878851 (3) Suspected COVID-19 virus infection ICD Codes: R68.89 - Other general symptoms and signs SNOMED: 285793090 (4) HTN (hypertension) ICD Codes: I10 - Essential (primary) hypertension SNOMED: 15722433 (5) CASSANDRA (acute kidney injury) ICD Codes: N17.9 - Acute kidney failure, unspecified SNOMED: 0226751, 43993649 (6) Anemia in chronic kidney disease (CKD) ICD Codes: N18.9 - Chronic kidney disease, unspecified; D63.1 - Anemia in chronic kidney disease SNOMED: 948744077 (7) Suspected COVID-19 virus infection ICD Codes: R68.89 - Other general symptoms and signs SNOMED: 229759170 Status: progressing Assessment/Plan: improving renal failure worsening anemia of renal failure pna covid positve iresp failure sepsis hyponatrmia improving leukocytosis Subjective ROS Limited/Unobtainable: Yes Allergies: Coded Allergies: No Known Allergies (Unverified , 05/28/19) Objective Last 24 Hour Vital Signs Date Time Temp Pulse Resp B/P (MAP) Pulse Ox O2 Delivery O2 Flow Rate FiO2 06/16/19 16:40 24 40 06/16/19 16:00 40 06/16/19 16:00 98.2 82 26 100/65 (77) 100 06/16/19 16:00 Mechanical Ventilator 06/16/19 16:00 100/65 06/16/19 16:00 26 Mechanical Ventilator 40 06/16/19 15:30 81 26 100 Mechanical Ventilator 40 82 27 50 06/16/19 15:00 113/65 06/16/19 15:00 25 Mechanical Ventilator 40 06/16/19 15:00 78 24 113/65 (81) 100 06/16/19 14:00 93/53 06/16/19 14:00 24 Mechanical Ventilator 40 06/16/19 14:00 74 26 93/53 (66) 100 06/16/19 13:00 129/62 06/16/19 13:00 24 Mechanical Ventilator 40 06/16/19 13:00 73 26 129/62 (84) 98 5/6/20 12:30 76 26 76/41 (53) 98 5/6/20 12:00 40 5/620 12:00 116/58 520 12:00 24 Mechanical Ventilator 40 06/16/19 12:00 Mechanical Ventilator 20 12:00 99.9 76 26 116/58 (77) 97 5/6/20 12:00 76 20 11:30 77 26 110/60 (77) 98 20 11:00 84 26 100 Mechanical Ventilator 40 85 27 50 5/6/20 11:00 110/60 5/6/20 11:00 26 Mechanical Ventilator 40 20 11:00 76 27 110/60 (77) 99 20 10:30 79 28 107/53 (71) 99 06/15/20 10:00 77 26 129/60 (83) 98 /6/20 10:00 129/60 5/20 10:00 24 Mechanical Ventilator 40 06/16/19 09:30 75 25 165/75 (105) 100 06/16/19 09:11 99.8 06/16/19 09:00 79 31 121/60 (80) 99 //20 09:00 121/60 520 09:00 25 Mechanical Ventilator 40 06/16/19 08:30 80 27 117/56 (76) 98 06/15/20 08:00 100.1 81 26 109/58 (75) 98 06/15/20 08:00 Mechanical Ventilator 06/16/19 08:00 40 20 08:00 109/58 20 08:00 26 Mechanical Ventilator 40 20 08:00 74 //20 07:30 86 25 124/62 (82) 100 5/6/20 07:25 112/62 5//20 07:23 81 29 100 Mechanical Ventilator 40 83 26 50 5/6/20 07:00 80 30 115/59 (77) 98 06/15/20 07:00 26 Mechanical Ventilator 40 20 06:45 117/62 5/6/20 06:30 80 30 129/61 (83) 98 20 06:00 121/51 5620 06:00 26 Mechanical Ventilator 40 06/16/19 06:00 79 30 121/59 (79) 98 20 05:30 80 25 121/60 (80) 98 06/16/19 05:19 87 29 100 Mechanical Ventilator 50 84 29 50 06/16/19 05:12 99.0 06/16/19 05:00 82 26 122/59 (80) 99 20 05:00 122/59 06/16/19 05:00 26 Mechanical Ventilator 40 06/16/19 04:30 85 26 106/55 (72) 97 06/16/19 04:00 74 06/16/19 04:00 40 06/16/19 04:00 123/61 06/16/19 04:00 26 Mechanical Ventilator 60 06/16/19 04:00 100.3 74 28 123/61 (81) 100 06/16/19 04:00 Mechanical Ventilator 06/16/19 03:30 74 28 118/62 (80) 100 06/16/19 03:15 26 Mechanical Ventilator 60 06/16/19 03:00 74 26 118/61 (80) 100 06/16/19 03:00 118/61 06/16/19 03:00 26 Mechanical Ventilator 60 06/16/19 02:30 73 25 123/62 (82) 100 06/16/19 02:00 70 29 117/63 (81) 100 06/16/19 02:00 117/63 06/16/19 02:00 26 Mechanical Ventilator 60 06/16/19 01:30 71 25 115/66 (82) 100 06/16/19 01:16 87 28 100 Mechanical Ventilator 50 84 29 50 06/16/19 01:00 72 26 112/60 (77) 100 06/16/19 01:00 112/60 06/16/19 01:00 26 Mechanical Ventilator 60 06/16/19 00:30 74 25 106/56 (73) 100 06/16/19 00:00 99.0 73 19 104/56 (72) 100 06/16/19 00:00 Mechanical Ventilator 06/16/19 00:00 104/56 06/16/19 00:00 26 Mechanical Ventilator 60 06/15/19 23:30 71 26 104/55 (71) 100 06/15/19 23:03 84 29 100 Mechanical Ventilator 50 84 29 50 06/15/19 23:00 103/46 5/5/20 23:00 26 Mechanical Ventilator 60 06/15/19 23:00 84 26 103/46 (65) 98 06/15/19 22:30 80 8 98/58 (71) 100 06/15/19 22:00 82 12 104/60 (75) 100 06/15/19 22:00 104/60 06/15/19 22:00 25 Mechanical Ventilator 60 06/15/19 21:30 83 12 114/64 (81) 100 06/15/19 21:00 116/75 06/15/19 21:00 26 Mechanical Ventilator 60 06/15/19 21:00 77 29 116/75 (89) 100 06/15/19 20:30 77 23 123/70 (87) 100 06/15/19 20:00 98.3 78 16 124/72 (89) 100 06/15/19 20:00 116/75 06/15/19 20:00 26 Mechanical Ventilator 60 06/15/19 20:00 60 06/15/19 20:00 Mechanical Ventilator 06/15/19 20:00 74 06/15/19 19:30 87 33 111/73 (86) 100 06/15/19 19:16 81 30 99 Mechanical Ventilator 50 84 29 100 06/15/19 19:00 122/69 06/15/19 19:00 26 Mechanical Ventilator 60 06/15/19 19:00 78 22 122/69 (86) 100 06/15/19 18:30 96.2 78 32 120/69 (86) 100 06/15/19 18:00 72 32 117/65 (82) 100 06/15/19 18:00 120/65 06/15/19 18:00 26 Mechanical Ventilator 60 06/15/19 18:00 74 31 117/65 (82) 100 Intake and Output 06/15/19 06/16/19 19:00 07:00 Intake Total 987.34 ml 827.74 ml Output Total 0 ml 20 ml Balance 987.34 ml 807.74 ml Free Water 120 ml 60 ml IV Total 747.34 ml 647.74 ml Tube Feeding 120 ml 120 ml Output Urine Total 0 ml 20 ml Laboratory Tests 06/16/19 04:00: White Blood Count 16.2H, Red Blood Count 2.31L, Hemoglobin 7.1L, Hematocrit 21.3L, Mean Corpuscular Volume 93, Mean Corpuscular Hemoglobin 31.0, Mean Corpuscular Hemoglobin Concent 33.5, Red Cell Distribution Width 19.9H, Platelet Count 110L, Mean Platelet Volume 8.3, Neutrophils (%) (Auto) , Lymphocytes (%) (Auto) , Monocytes (%) (Auto) , Eosinophils (%) (Auto) , Basophils (%) (Auto) , Differential Total Cells Counted 100, Neutrophils % ( Manual) 83H, Lymphocytes % (Manual) 6L, Monocytes % (Manual) 11H, Eosinophils % (Manual) 0, Basophils % (Manual) 0, Band Neutrophils 0, Platelet Estimate DecreasedL, Platelet Morphology Normal, Polychromasia 2+, Hypochromasia 1+, Anisocytosis 2+, Sodium Level 130L, Potassium Level 4.3, Chloride Level 90L, Carbon Dioxide Level 24, Anion Gap 16H, Blood Urea Nitrogen 71H, Creatinine 9.9H , Estimat Glomerular Filtration Rate 5.3, Glucose Level 225H, Uric Acid 6.6, Calcium Level 8.3L, Phosphorus Level 6.5H, Magnesium Level 2.1, Total Bilirubin 0.4, Aspartate Amino Transf (AST/SGOT) 46H, Alanine Aminotransferase (ALT/SGPT) 29, Alkaline Phosphatase 76, C-Reactive Protein, Quantitative 24.1H, Pro-B-Type Natriuretic Peptide 05544C, Total Protein 7.3, Albumin 2.0L, Globulin 5.3, Albumin/Globulin Ratio 0.4L Height (Feet): 6 Height (Inches): 1.00 Weight (Pounds): 209 Karishma Mulligan MD June 16, 2019 17:40
[2019-06-16] MEDS: Dyna-Hex 2% Top Sol 2oz TOPIC SCH (20:44)
[2019-06-16] MEDS: Epoetin Alfa-EPBX(ESRD on dialysis)10,000 unit/ml vial SUBQ SCH (20:52)
--- NOTE | 2019-06-16 23:51 | Pulmonolgy Critical Care Note ---
Critical Care - Asmt/Plan Assessment/Plan: Pulmonary CCM Progress Note HPI: Patient is a 68 year old man, group home resident, admitted c/o shortness of breath, cough, noted to have Covid 19 Pneumonia. S/p intubation, remains on pressors, ABG/CXR noted Feeding tube repositioned FIO2 50%, adequate O2 sats HD tolerated Anemia ID following On HD per Renal Past Medical History: COPD, CKD, Hypertension, Anemia Hypotension requiring pressors, in ICU Persistently elevated WCC Allergies: No Known Allergies Improving Pulmonary Status on HD Physical Exam Vital Signs Noted Sedated on ventilator WDWN, no distress HEENT: NCAT,moist mm Chest: Occasional rhonchi Heart: HS1, HS2, RRR Abdomen: SNTND, no masses Extremities: Well perfused, no edema [employer]: No focal signs, no seizures, seadted Impression: COVID-19 virus infection Pneumonia Respiratory failure on ventilator Volume overload improving - on HD Cardiomegaly Lymphopenia Elevated AST COPD Chronic Kidney Disease - HD Hypertension Worsening anemia Plan: Antibiotics per ID HD Pressors PRN ACVC ABG PRN RHINOLOGIST Medications 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 Monitor cultures/viral studies PPX Hemodialysis per Renal Psychiatry following [facility] requested for when available, [facility] - not available as yet Laboratory Tests Noted: CXR: Hypoventilatory exam, interstitial changes, cardiomegaly, worsening infiltrates Subjective ROS Limited/Unobtainable: No Constitutional: Denies: fever Respiratory: Reports: dry cough, shortness of breath Gastrointestinal/Abdominal: Reports: diarrhea, other - colace was stopped Psychiatric: Reports: other - refuses labs Allergies: Coded Allergies: No Known Allergies (Unverified , 05/28/19) All Systems: reviewed and negative except above Labs noted Critical Care - Objective Last 24 Hour Vital Signs Date Time Temp Pulse Resp B/P (MAP) Pulse Ox O2 Delivery O2 Flow Rate FiO2 06/16/19 23:27 86 28 100 Mechanical Ventilator 40 82 27 50 06/16/19 23:00 84 25 118/65 (82) 100 06/16/19 22:30 86 23 124/62 (82) 98 06/16/19 22:00 115/64 06/16/19 22:00 26 Mechanical Ventilator 40 06/16/19 22:00 85 25 115/64 (81) 98 06/16/19 21:30 87 24 124/64 (84) 97 5/6/20 21:00 82 26 131/70 (90) 97 20 21:00 131/70 520 21:00 30 Mechanical Ventilator 40 20 20:45 128/66 520 20:30 133/70 5/20 20:30 99.5 83 25 133/65 (87) 100 20 20:15 138/68 5/20 20:00 Mechanical Ventilator 06/16/19 20:00 80 36 145/69 (94) 95 20 20:00 145/69 20 20:00 26 Mechanical Ventilator 40 06/16/19 20:00 40 20 20:00 80 20 19:51 56/40 06/16/19 19:36 79 28 100 Mechanical Ventilator 40 82 27 50 20 19:30 83 25 147/79 (101) 100 06/16/19 19:00 77 26 136/71 (92) 100 06/16/19 19:00 136/71 06/16/19 19:00 26 Mechanical Ventilator 40 06/16/19 18:30 83 25 113/64 (80) 99 20 18:00 87 29 150/64 (92) 100 20 18:00 113/62 06/16/19 18:00 26 Mechanical Ventilator 40 06/16/19 17:30 79 30 152/74 (100) 100 20 17:10 98.2 06/16/19 17:00 81 30 141/74 (96) 100 06/16/19 17:00 122/65 20 17:00 24 Mechanical Ventilator 40 06/16/19 16:40 24 40 20 16:30 81 28 122/65 (84) 100 20 16:00 40 20 16:00 98.2 82 26 100/65 (77) 100 20 16:00 86 /20 16:00 Mechanical Ventilator 06/16/19 16:00 100/65 520 16:00 26 Mechanical Ventilator 40 06/16/19 15:30 79 26 126/73 (90) 100 06/16/19 15:30 81 26 100 Mechanical Ventilator 40 82 27 50 5/6/20 15:00 113/65 5/6/20 15:00 25 Mechanical Ventilator 40 20 15:00 78 24 113/65 (81) 100 5/6/20 14:00 93/53 5/6/20 14:00 24 Mechanical Ventilator 40 20 14:00 74 26 93/53 (66) 100 5/6/20 13:00 129/62 5/6/20 13:00 24 Mechanical Ventilator 40 20 13:00 73 26 129/62 (84) 98 6/20 12:30 76 26 76/41 (53) 98 06/15/20 12:00 40 06/16/19 12:00 116/58 20 12:00 24 Mechanical Ventilator 40 06/16/19 12:00 Mechanical Ventilator 06/16/19 12:00 99.9 76 26 116/58 (77) 97 06/15/20 12:00 76 06/16/19 11:30 77 26 110/60 (77) 98 20 11:00 84 26 100 Mechanical Ventilator 40 85 27 50 20 11:00 110/60 5//20 11:00 26 Mechanical Ventilator 40 06/16/19 11:00 76 27 110/60 (77) 99 //20 10:30 79 28 107/53 (71) 99 //20 10:00 77 26 129/60 (83) 98 5/6/20 10:00 129/60 5//20 10:00 24 Mechanical Ventilator 40 06/16/19 09:30 75 25 165/75 (105) 100 20 09:11 99.8 20 09:00 79 31 121/60 (80) 99 5/6/20 09:00 121/60 5/20 09:00 25 Mechanical Ventilator 40 20 08:30 80 27 117/56 (76) 98 06/15/20 08:00 100.1 81 26 109/58 (75) 98 5/6/20 08:00 Mechanical Ventilator 20 08:00 40 20 08:00 109/58 20 08:00 26 Mechanical Ventilator 40 06/16/19 08:00 74 5/6/20 07:30 86 25 124/62 (82) 100 520 07:25 112/62 06/16/19 07:23 81 29 100 Mechanical Ventilator 40 83 26 50 20 07:00 80 30 115/59 (77) 98 20 07:00 26 Mechanical Ventilator 40 06/16/19 06:45 117/62 20 06:30 80 30 129/61 (83) 98 20 06:00 121/51 06/16/19 06:00 26 Mechanical Ventilator 40 06/16/19 06:00 79 30 121/59 (79) 98 20 05:30 80 25 121/60 (80) 98 06/16/19 05:19 87 29 100 Mechanical Ventilator 50 84 29 50 06/16/19 05:00 82 26 122/59 (80) 99 06/16/19 05:00 122/59 06/16/19 05:00 26 Mechanical Ventilator 40 06/16/19 04:30 85 26 106/55 (72) 97 06/16/19 04:00 74 06/16/19 04:00 40 06/16/19 04:00 123/61 06/16/19 04:00 26 Mechanical Ventilator 60 06/16/19 04:00 100.3 74 28 123/61 (81) 100 06/16/19 04:00 Mechanical Ventilator 06/16/19 03:30 74 28 118/62 (80) 100 06/16/19 03:15 26 Mechanical Ventilator 60 06/16/19 03:00 74 26 118/61 (80) 100 06/16/19 03:00 118/61 06/16/19 03:00 26 Mechanical Ventilator 60 06/16/19 02:30 73 25 123/62 (82) 100 20 02:00 70 29 117/63 (81) 100 06/16/19 02:00 117/63 06/16/19 02:00 26 Mechanical Ventilator 60 06/16/19 01:30 71 25 115/66 (82) 100 06/16/19 01:16 87 28 100 Mechanical Ventilator 50 84 29 50 20 01:00 72 26 112/60 (77) 100 06/16/19 01:00 112/60 06/16/19 01:00 26 Mechanical Ventilator 60 06/16/19 00:30 74 25 106/56 (73) 100 06/16/19 00:00 99.0 73 19 104/56 (72) 100 06/16/19 00:00 Mechanical Ventilator 06/16/19 00:00 104/56 06/16/19 00:00 26 Mechanical Ventilator 60 Micro: Microbiology Date/Time Source Procedure Growth Status 06/14/19 14:20 Sputum Gram Stain - Final Complete 06/14/19 14:20 Sputum Sputum Culture - Final NORMAL UPPER RESPIRATORY WALDEMAR PRESENT Complete Critical Care - Subjective ROS Limited/Unobtainable: No Condition: critical FI02: 40 Vent Support Breath Rate: 26 Vent Support Mode: AC Vent Tidal Volume: 500 Sputum Amount: Small PEEP: 8.0 PIP: 36 Tube Feeding Amount: 30 I&O: Intake and Output 06/15/19 06/16/19 19:00 07:00 Intake Total 987.34 ml 827.74 ml Output Total 0 ml 20 ml Balance 987.34 ml 807.74 ml Free Water 120 ml 60 ml IV Total 747.34 ml 647.74 ml Tube Feeding 120 ml 120 ml Output Urine Total 0 ml 20 ml ET-Tube: 7.5 ET Position: 24 Arturo Mckeon MD June 16, 2019 23:51
[2019-06-17] VITALS (61 sets, daily range): BP systolic 91–142; BP diastolic 40–82
[2019-06-17] MEDS: Albuterol 90mcg Inhaler 8gm INH SCH ×6 (03:23→23:13)
[2019-06-17] MEDS: fentaNYL Citrate 2,500 MCG in NS 200 ML IV SCH ×2 (04:54→17:13)
[2019-06-17 05:52] LABS: HEMATOCRIT 26.8 % (42.0-52.0); HEMOGLOBIN 8.9 G/DL (14.2-18.0); MEAN CORPUSCULAR VOLUME 92 FL (80-99); PLATELET COUNT 121 K/UL (150-450); RED BLOOD COUNT 2.91 M/UL (4.70-6.10); RED CELL DISTRIBUTION WIDTH 18.4 % (11.6-14.8); WHITE BLOOD COUNT 14.4 K/UL (4.8-10.8)
[2019-06-17 06:32] LABS: ALANINE AMINOTRANSFERASE 21 U/L (12-78); ALBUMIN 1.9 G/DL (3.4-5.0); ALBUMIN/GLOBULIN RATIO 0.3 (1.0-2.7); ALKALINE PHOSPHATASE 76 U/L (46-116); ANION GAP 15 mmol/L (5-15); ASPARTATE AMINO TRANSFERASE 32 U/L (15-37); BILIRUBIN,TOTAL 0.5 MG/DL (0.2-1.0); BLOOD UREA NITROGEN 55 mg/dL (7-18); CALCIUM 7.9 MG/DL (8.5-10.1); CARBON DIOXIDE 25 MMOL/L (21-32); CHLORIDE 91 MMOL/L (98-107); CREATININE 8.2 MG/DL (0.55-1.30); LACTATE DEHYDROGENASE 356 U/L (81-234); PHOSPHORUS 5.7 MG/DL (2.5-4.9); POTASSIUM 4.2 MMOL/L (3.5-5.1); SODIUM 131 MMOL/L (136-145)
[2019-06-17] MEDS: Renvela 800mg Pkt NG SCH ×4 (06:37→23:38)
[2019-06-17] MEDS: Acetaminophen 650mg/20.3ml NG PRN ×3 (06:37→17:14)
[2019-06-17] MEDS: Piperacillin/Tazobactam 2.25 GM in D5W 55 ML IVPB SCH ×3 (06:38→20:32)
[2019-06-17] MEDS: Wixela 100/50 Inhaler - 60 dose INH SCH ×2 (07:33→19:55)
[2019-06-17] MEDS: Docusate 100mg/10ml Liq NG SCH ×3 (08:36→17:14)
[2019-06-17] MEDS: Pantoprazole Inj IVP SCH ×2 (08:36→20:32)
[2019-06-17] MEDS: Midodrine 10mg tab NG SCH ×3 (08:36→17:14)
[2019-06-17] MEDS: Enoxaparin 30mg Inj SUBQ SCH (08:37)
--- NOTE | 2019-06-17 08:55 | Infectious Diseases Prog Note ---
Assessment/Plan Assessment/Plan IMPRESSION: 1. COVID19 pneumonia Positive: 05/27, 05/31 , 06/05, 06/09 2. MRSA carrier. 3. Chronic kidney disease , end-stage renal disease. 4. COPD. 5. Hypertension. 6. Anemia. 7. Hypothyroidism. 8. Hyperlipidemia. 9. Major depression. 10. Leukocytosis 11. Hypotension 12. Hepatitis C 13. Hyperuricemia 14. Diarrhea 15. septic shock RECOMMENDATIONS: Continue Vancomycin & Zosyn Repeat CXR Poor prognosis Finished hydroxychloroquine. Will f/u COVID19 test Subjective ROS Limited/Unobtainable: Yes Constitutional: Reports: fever, other - T=102.3 Neurologic: Reports: other - on restraint Allergies: Coded Allergies: No Known Allergies (Unverified , 05/28/19) Objective Vital Signs Last 24 Hour Vital Signs Date Time Temp Pulse Resp B/P (MAP) Pulse Ox O2 Delivery O2 Flow Rate FiO2 06/17/19 07:30 83 30 99 Mechanical Ventilator 40 85 27 40 06/17/19 07:00 123/55 06/17/19 07:00 16 Mechanical Ventilator 40 06/17/19 07:00 83 27 123/55 (77) 97 06/17/19 06:30 102.3 84 27 127/56 (79) 97 06/17/19 06:22 100.5 06/17/19 06:00 84 27 115/55 (75) 97 06/17/19 06:00 115/55 06/17/19 06:00 26 Mechanical Ventilator 40 06/17/19 05:30 100.5 87 28 117/53 (74) 98 06/17/19 05:00 85 28 124/61 (82) 97 06/17/19 05:00 117/53 06/17/19 04:54 26 Mechanical Ventilator 40 06/17/19 04:30 86 23 132/61 (84) 98 06/17/19 04:00 Mechanical Ventilator 06/17/19 04:00 83 30 122/60 (80) 97 06/17/19 04:00 40 06/17/19 04:00 78 06/17/19 04:00 122/60 06/17/19 03:30 82 27 116/56 (76) 96 06/17/19 03:23 78 31 100 Mechanical Ventilator 40 82 27 50 06/17/19 03:00 129/65 5/7/20 03:00 79 26 129/65 (86) 99 06/17/19 02:30 99.6 77 27 117/59 (78) 98 06/17/19 02:15 130/64 06/17/19 02:00 76 28 130/64 (86) 98 06/17/19 01:30 77 26 125/61 (82) 98 06/17/19 01:00 135/63 06/17/19 01:00 77 28 135/63 (87) 98 06/17/19 00:30 77 27 137/61 (86) 98 06/17/19 00:00 Mechanical Ventilator 06/17/19 00:00 142/65 06/17/19 00:00 99.0 76 28 142/65 (90) 98 06/16/19 23:30 82 26 122/59 (80) 97 06/16/19 23:27 86 28 100 Mechanical Ventilator 40 82 27 50 06/16/19 23:00 84 25 118/65 (82) 100 06/16/19 23:00 118/65 06/16/19 22:30 86 23 124/62 (82) 98 06/16/19 22:00 115/64 06/16/19 22:00 26 Mechanical Ventilator 40 06/16/19 22:00 85 25 115/64 (81) 98 06/16/19 21:30 87 24 124/64 (84) 97 06/16/19 21:00 82 26 131/70 (90) 97 20 21:00 131/70 06/16/19 21:00 30 Mechanical Ventilator 40 06/16/19 20:45 128/66 06/16/19 20:30 133/70 20 20:30 99.5 83 25 133/65 (87) 100 06/16/19 20:15 138/68 20 20:00 Mechanical Ventilator 06/16/19 20:00 80 36 145/69 (94) 95 20 20:00 145/69 20 20:00 26 Mechanical Ventilator 40 06/16/19 20:00 40 20 20:00 80 20 19:51 56/40 06/16/19 19:36 79 28 100 Mechanical Ventilator 40 82 27 50 5/6/20 19:30 83 25 147/79 (101) 100 5/6/20 19:00 77 26 136/71 (92) 100 5620 19:00 136/71 5/20 19:00 26 Mechanical Ventilator 40 20 18:30 83 25 113/64 (80) 99 5/620 18:00 87 29 150/64 (92) 100 5620 18:00 113/62 520 18:00 26 Mechanical Ventilator 40 06/16/19 17:30 79 30 152/74 (100) 100 20 17:00 81 30 141/74 (96) 100 20 17:00 122/65 06/16/19 17:00 24 Mechanical Ventilator 40 06/16/19 16:40 24 40 20 16:30 81 28 122/65 (84) 100 20 16:00 40 20 16:00 98.2 82 26 100/65 (77) 100 06/16/19 16:00 86 06/16/19 16:00 Mechanical Ventilator 20 16:00 100/65 520 16:00 26 Mechanical Ventilator 40 20 15:30 79 26 126/73 (90) 100 20 15:30 81 26 100 Mechanical Ventilator 40 82 27 50 20 15:00 113/65 5/20 15:00 25 Mechanical Ventilator 40 20 15:00 78 24 113/65 (81) 100 520 14:00 93/53 520 14:00 24 Mechanical Ventilator 40 20 14:00 74 26 93/53 (66) 100 5/20 13:00 129/62 5/6/20 13:00 24 Mechanical Ventilator 40 20 13:00 73 26 129/62 (84) 98 06/15/20 12:30 76 26 76/41 (53) 98 5/6/20 12:00 40 5/620 12:00 116/58 5/6/20 12:00 24 Mechanical Ventilator 40 20 12:00 Mechanical Ventilator 20 12:00 99.9 76 26 116/58 (77) 97 06/16/19 12:00 76 06/16/19 11:30 77 26 110/60 (77) 98 06/16/19 11:00 84 26 100 Mechanical Ventilator 40 85 27 50 06/16/19 11:00 110/60 06/16/19 11:00 26 Mechanical Ventilator 40 06/16/19 11:00 76 27 110/60 (77) 99 06/16/19 10:30 79 28 107/53 (71) 99 06/16/19 10:00 77 26 129/60 (83) 98 06/16/19 10:00 129/60 06/16/19 10:00 24 Mechanical Ventilator 40 06/16/19 09:30 75 25 165/75 (105) 100 06/16/19 09:11 99.8 06/16/19 09:00 79 31 121/60 (80) 99 06/16/19 09:00 121/60 06/16/19 09:00 25 Mechanical Ventilator 40 Height (Feet): 6 Height (Inches): 1.00 Weight (Pounds): 211 HEENT: other Respiratory/Chest: other - on ventilator Cardiovascular: normal rate, other - subclavian central line Abdomen: other - NG tube Extremities: other - periankle edema Neurologic/Psychiatric: unresponsiveness Microbiology Date/Time Source Procedure Growth Status 06/14/19 14:20 Sputum Gram Stain - Final Complete 06/14/19 14:20 Sputum Sputum Culture - Final NORMAL UPPER RESPIRATORY WALDEMAR PRESENT Complete Laboratory Tests Test 06/17/19 04:00 White Blood Count 14.4 K/UL (4.8-10.8) H Red Blood Count 2.91 M/UL (4.70-6.10) L Hemoglobin 8.9 G/DL (14.2-18.0) L Hematocrit 26.8 % (42.0-52.0) L Mean Corpuscular Volume 92 FL (80-99) Mean Corpuscular Hemoglobin 30.5 PG (27.0-31.0) Mean Corpuscular Hemoglobin Concent 33.2 G/DL (32.0-36.0) Red Cell Distribution Width 18.4 % (11.6-14.8) H Platelet Count 121 K/UL (150-450) L Mean Platelet Volume 7.7 FL (6.5-10.1) Neutrophils (%) (Auto) % (45.0-75.0) Lymphocytes (%) (Auto) % (20.0-45.0) Monocytes (%) (Auto) % (1.0-10.0) Eosinophils (%) (Auto) % (0.0-3.0) Basophils (%) (Auto) % (0.0-2.0) Differential Total Cells Counted 100 Neutrophils % (Manual) 85 % (45-75) H Lymphocytes % (Manual) 9 % (20-45) L Monocytes % (Manual) 4 % (1-10) Eosinophils % (Manual) 1 % (0-3) Basophils % (Manual) 0 % (0-2) Metamyelocytes % 1 % (0-0) H Band Neutrophils 0 % (0-8) Platelet Estimate Decreased L Platelet Morphology Normal Hypochromasia 2+ Anisocytosis 2+ Spherocytes 1+ Sodium Level 131 MMOL/L (136-145) L Potassium Level 4.2 MMOL/L (3.5-5.1) Chloride Level 91 MMOL/L (98-107) L Carbon Dioxide Level 25 MMOL/L (21-32) Anion Gap 15 mmol/L (5-15) Blood Urea Nitrogen 55 mg/dL (7-18) H Creatinine 8.2 MG/DL (0.55-1.30) H Estimat Glomerular Filtration Rate 6.6 mL/min (>60) Glucose Level 200 MG/DL (74-106) H Calcium Level 7.9 MG/DL (8.5-10.1) L Phosphorus Level 5.7 MG/DL (2.5-4.9) H Magnesium Level 2.1 MG/DL (1.8-2.4) Total Bilirubin 0.5 MG/DL (0.2-1.0) Aspartate Amino Transf (AST/SGOT) 32 U/L (15-37) Alanine Aminotransferase (ALT/SGPT) 21 U/L (12-78) Alkaline Phosphatase 76 U/L (46-116) Lactate Dehydrogenase 356 U/L (81-234) H C-Reactive Protein, Quantitative Pending Pro-B-Type Natriuretic Peptide > 18582 pg/mL (0-125) H Total Protein 7.7 G/DL (6.4-8.2) Albumin 1.9 G/DL (3.4-5.0) L Globulin 5.8 g/dL Albumin/Globulin Ratio 0.3 (1.0-2.7) L Current Medications Medications (Trade) Dose Ordered Sig/Anthony Route PRN Reason Start Time Stop Time Status Last Admin Dose Admin Acetaminophen (Tylenol) 650 mg Q4H PRN NG Temp >100.5 06/13/19 11:00 07/13/19 10:59 06/17/19 06:37 Albuterol Sulfate (Proventil MDI) 2 puff Q4HRT INH 06/06/19 23:00 08/30/19 18:59 06/17/19 07:33 Allopurinol (allopurinoL) 300 mg DAILY NG 06/08/19 09:30 07/08/19 09:29 06/17/19 08:36 Chlorhexidine Gluconate (Michelle-Hex 2%) 1 applic DAILY@2000 TOPIC 06/07/19 20:00 09/05/19 19:59 06/16/19 20:44 Docusate Sodium (Colace) 100 mg THREE TIMES A DAY NG 06/07/19 13:00 07/07/19 12:59 06/17/19 08:36 Dopamine HCl/ Dextrose 250 ml @ 0 mls/hr Q24H PRN IV For hypotension 06/13/19 08:15 09/11/19 08:14 Enoxaparin Sodium (Lovenox) 30 mg DAILY SUBQ 06/07/19 09:00 08/27/19 08:59 06/17/19 08:37 Epoetin Aftab (Epoetin Aftab(ESRD on dialysis)) 10,000 unit FRI-FRI-FRI SUBQ 06/07/19 21:00 08/31/19 20:59 06/16/19 20:52 Fentanyl Citrate 2500 mcg/Sodium Chloride 250 ml @ 0 mls/hr Q24H IV 06/13/19 07:00 06/20/19 06:59 06/17/19 04:54 Hydralazine HCl (Apresoline) 10 mg Q4H PRN IV Blood pressure over 160 systol 06/07/19 10:15 09/05/19 10:14 Midodrine (Pro-Amatine) 10 mg THREE TIMES A DAY NG 06/09/19 13:00 09/07/19 12:59 06/17/19 08:36 Norepinephrine Bitartrate 16 mg/ Dextrose 566 ml @ 0 mls/hr Q24H IV 06/13/19 09:45 07/13/19 09:44 06/16/19 19:51 Pantoprazole (Protonix) 40 mg Q12HR IVP 06/07/19 21:00 07/07/19 08:59 06/17/19 08:36 Piperacillin Sod/ Tazobactam Sod 2.25 gm/Dextrose 55 ml @ 110 mls/hr Q8HR IVPB 06/13/19 14:00 06/18/19 13:59 06/17/19 06:38 Salmeterol Xinafoate/ Fluticasone (Advair 100/50 Diskus) 1 puffs BID INH 06/07/19 09:00 08/27/19 08:59 06/11/19 09:14 Sevelamer Carbonate (Renvela) 1,600 mg Q6HR NG 06/14/19 12:00 09/05/19 12:59 06/17/19 06:37 Vancomycin HCl (Vanco rx to dose) 1 ea DAILY PRN MISC Per rx protocol 06/13/19 11:45 07/13/19 11:44 Vasopressin 100 units/Sodium Chloride 100 ml @ 0 mls/hr Q24H IV 06/12/19 11:00 07/12/19 10:59 06/15/19 11:08 Ted Leyva MD June 17, 2019 08:55
--- NOTE | 2019-06-17 09:25 | Nephrology Progress Note ---
Assessment/Plan Problem List: (1) CASSANDRA (acute kidney injury) (2) Anemia in chronic kidney disease (CKD) (3) HTN (hypertension) (4) COVID-19 Assessment Acute renal failure most likely superimposed on chronic kidney disease Suspected COVID-19 virus infection Possible Pneumonia, lymphopenia, elevated AST Cardiomegaly, possible CHF COPD Hypertension Anemia, most likely related to chronic kidney disease Plan June 16: Dialyzed yesterday Remains intubated Labs reviewed, serum sodium 131 Plan to dialyze tomorrow June 17 with high sodium bath Discussed with SHANIQUE Yuen June 15: Due for dialysis today Labs reviewed Discussed with RN Transfuse 1 unit of packed RBCs today for low hemoglobin of 7.1 June 5: Blood pressure well maintained Receive dialysis June 13 next hemodialysis June 15June 4: Discussed with RN in ICU Patient did not receive proper dialysis yesterday due to dialysis catheter malfunction Catheter to be adjusted today and dialyzed to be resumed today Continue per consultants Positive for COVID 28 June 2: Patient now intubated on mechanical ventilation Discussed with SHANIQUE Yuen, today June 12 Patient received dialysis yesterday June 10 next hemodialysis June 12 Blood pressure better maintained Today's labs reviewed Continue per consultants Previously patient received dialysis last evening June 05, next dialysis June 07 which was incomplete due to patient's hypotension Will start on midodrine for blood pressure support. Meanwhile continue other pressors as needed Previously Patient is doing poorly, septic, white blood cells are rising, Hypotension somewhat improved We will keep n.p.o. , NG tube for medications, and change medication to IV as needed Patient remains full code Monitor vancomycin level Previously: Patient pulled out his femoral catheter yesterday June 03 which was reinserted by Dr. Mast Patient scheduled for dialysis again June 04, which again was not done due to dialysis nurse citing catheter malfunction Meanwhile continue management per ID, pulmonary , and psych. Meanwhile white blood cell count is rising. Patient blood pressure borderline low. Will check ABG Previously May 31 : I believe patient need dialysis treatment He however needs to competency assessment if can make decisions or not I will communicate with Dr. Mulligan Previously: Per pulmonary and ID advice Adjust blood pressure medication Renal diet Anemia work-up 2D echocardiogram refused Kidney ultrasound refused Jules catheter Urine studies Per orders Subjective ROS Limited/Unobtainable: Yes Objective Objective Last 24 Hour Vital Signs Date Time Temp Pulse Resp B/P (MAP) Pulse Ox O2 Delivery O2 Flow Rate FiO2 06/17/19 07:30 83 30 99 Mechanical Ventilator 40 85 27 40 06/17/19 07:00 123/55 06/17/19 07:00 16 Mechanical Ventilator 40 06/17/19 07:00 83 27 123/55 (77) 97 06/17/19 06:30 102.3 84 27 127/56 (79) 97 06/17/19 06:22 100.5 06/17/19 06:00 84 27 115/55 (75) 97 06/17/19 06:00 115/55 06/17/19 06:00 26 Mechanical Ventilator 40 06/17/19 05:30 100.5 87 28 117/53 (74) 98 06/17/19 05:00 85 28 124/61 (82) 97 06/17/19 05:00 117/53 06/17/19 04:54 26 Mechanical Ventilator 40 06/17/19 04:30 86 23 132/61 (84) 98 06/17/19 04:00 Mechanical Ventilator 06/17/19 04:00 83 30 122/60 (80) 97 06/17/19 04:00 40 06/17/19 04:00 78 06/17/19 04:00 122/60 06/17/19 03:30 82 27 116/56 (76) 96 06/17/19 03:23 78 31 100 Mechanical Ventilator 40 82 27 50 06/17/19 03:00 129/65 06/17/19 03:00 79 26 129/65 (86) 99 06/17/19 02:30 99.6 77 27 117/59 (78) 98 06/17/19 02:15 130/64 06/17/19 02:00 76 28 130/64 (86) 98 06/17/19 01:30 77 26 125/61 (82) 98 06/17/19 01:00 135/63 06/17/19 01:00 77 28 135/63 (87) 98 06/17/19 00:30 77 27 137/61 (86) 98 06/17/19 00:00 Mechanical Ventilator 06/17/19 00:00 142/65 06/17/19 00:00 99.0 76 28 142/65 (90) 98 06/16/19 23:30 82 26 122/59 (80) 97 5/6/20 23:27 86 28 100 Mechanical Ventilator 40 82 27 50 5/6/20 23:00 84 25 118/65 (82) 100 5/6/20 23:00 118/65 5/6/20 22:30 86 23 124/62 (82) 98 5/6/20 22:00 115/64 5/6/20 22:00 26 Mechanical Ventilator 40 5/6/20 22:00 85 25 115/64 (81) 98 5/6/20 21:30 87 24 124/64 (84) 97 5/6/20 21:00 82 26 131/70 (90) 97 5/6/20 21:00 131/70 5/6/20 21:00 30 Mechanical Ventilator 40 5/6/20 20:45 128/66 5/6/20 20:30 133/70 5/6/20 20:30 99.5 83 25 133/65 (87) 100 5/6/20 20:15 138/68 5/6/20 20:00 Mechanical Ventilator 5//20 20:00 80 36 145/69 (94) 95 5/6/20 20:00 145/69 5/6/20 20:00 26 Mechanical Ventilator 40 5/6/20 20:00 40 5/6/20 20:00 80 5/6/20 19:51 56/40 5/6/20 19:36 79 28 100 Mechanical Ventilator 40 82 27 50 5/6/20 19:30 83 25 147/79 (101) 100 5/6/20 19:00 77 26 136/71 (92) 100 5/6/20 19:00 136/71 5/6/20 19:00 26 Mechanical Ventilator 40 5/6/20 18:30 83 25 113/64 (80) 99 5/6/20 18:00 87 29 150/64 (92) 100 5/6/20 18:00 113/62 5/6/20 18:00 26 Mechanical Ventilator 40 5/6/20 17:30 79 30 152/74 (100) 100 5/6/20 17:00 81 30 141/74 (96) 100 5/6/20 17:00 122/65 5/6/20 17:00 24 Mechanical Ventilator 40 5/6/20 16:40 24 40 5/6/20 16:30 81 28 122/65 (84) 100 5/6/20 16:00 40 20 16:00 98.2 82 26 100/65 (77) 100 20 16:00 86 20 16:00 Mechanical Ventilator 06/16/19 16:00 100/65 20 16:00 26 Mechanical Ventilator 40 06/16/19 15:30 79 26 126/73 (90) 100 06/16/19 15:30 81 26 100 Mechanical Ventilator 40 82 27 50 20 15:00 113/65 06/16/19 15:00 25 Mechanical Ventilator 40 06/16/19 15:00 78 24 113/65 (81) 100 06/16/19 14:00 93/53 06/16/19 14:00 24 Mechanical Ventilator 40 06/16/19 14:00 74 26 93/53 (66) 100 06/16/19 13:00 129/62 06/16/19 13:00 24 Mechanical Ventilator 40 06/16/19 13:00 73 26 129/62 (84) 98 06/16/19 12:30 76 26 76/41 (53) 98 20 12:00 40 06/16/19 12:00 116/58 06/16/19 12:00 24 Mechanical Ventilator 40 06/16/19 12:00 Mechanical Ventilator 06/16/19 12:00 99.9 76 26 116/58 (77) 97 20 12:00 76 06/16/19 11:30 77 26 110/60 (77) 98 06/16/19 11:00 84 26 100 Mechanical Ventilator 40 85 27 50 06/16/19 11:00 110/60 06/16/19 11:00 26 Mechanical Ventilator 40 06/16/19 11:00 76 27 110/60 (77) 99 //20 10:30 79 28 107/53 (71) 99 20 10:00 77 26 129/60 (83) 98 20 10:00 129/60 20 10:00 24 Mechanical Ventilator 40 06/16/19 09:30 75 25 165/75 (105) 100 Intake and Output 20 06/17/19 18:59 06:59 Intake Total 1055.00 ml 1110 ml Output Total 2040 ml 15 ml Balance -985.00 ml 1095 ml Free Water 60 ml 310 ml IV Total 555.00 ml 410 ml Tube Feeding 190 ml 390 ml Blood Product 250 ml Output Urine Total 40 ml 15 ml Hemodialysis UF 2000 ml # Bowel Movements 1 Laboratory Tests 06/17/19 04:00: White Blood Count 14.4H, Red Blood Count 2.91L, Hemoglobin 8.9L, Hematocrit 26.8L, Mean Corpuscular Volume 92, Mean Corpuscular Hemoglobin 30.5, Mean Corpuscular Hemoglobin Concent 33.2, Red Cell Distribution Width 18.4H, Platelet Count 121L, Mean Platelet Volume 7.7, Neutrophils (%) (Auto) , Lymphocytes (%) (Auto) , Monocytes (%) (Auto) , Eosinophils (%) (Auto) , Basophils (%) (Auto) , Differential Total Cells Counted 100, Neutrophils % ( Manual) 85H, Lymphocytes % (Manual) 9L, Monocytes % (Manual) 4, Eosinophils % ( Manual) 1, Basophils % (Manual) 0, Metamyelocytes % 1H, Band Neutrophils 0, Platelet Estimate DecreasedL, Platelet Morphology Normal, Hypochromasia 2+, Anisocytosis 2+, Spherocytes 1+, Sodium Level 131L, Potassium Level 4.2, Chloride Level 91L, Carbon Dioxide Level 25, Anion Gap 15, Blood Urea Nitrogen 55H, Creatinine 8.2H, Estimat Glomerular Filtration Rate 6.6, Glucose Level 200H , Calcium Level 7.9L, Phosphorus Level 5.7H, Magnesium Level 2.1, Total Bilirubin 0.5, Aspartate Amino Transf (AST/SGOT) 32, Alanine Aminotransferase ( ALT/SGPT) 21, Alkaline Phosphatase 76, Lactate Dehydrogenase 356H, C-Reactive Protein, Quantitative [Pending], Pro-B-Type Natriuretic Peptide > [id number], Total Protein 7.7, Albumin 1.9L, Globulin 5.8, Albumin/Globulin Ratio 0.3L Height (Feet): 6 Height (Inches): 1.00 Weight (Pounds): 211 General Appearance: no apparent distress EENT: other - Intubated on ventilator Cardiovascular: tachycardia - Rate in 80s Respiratory/Chest: decreased breath sounds Abdomen: distended Objective No change Mic Cole MD June 17, 2019 09:25
--- NOTE | 2019-06-17 09:36 | Hematology/Onc Progress Note ---
Assessment/Plan Assessment/Plan Assessment and Recs: # Anemia of chronic disease, likely related ot underlying kidney disease --> hgb trend 9-->8-->7.3-->7.9-->6.8->9.5-->10->8.3-->7.7-->7.1-->8.9 --> transfuse as needed, hgb goal >7 --> no evidence of hemolysis --> peripheral smear has been reviewed --> epogen started three x a week ==>> transfuse w 2 units 06/08, 06/15, # Leukocytosis likely related to suspected COVID-19 virus infection --> completed plaquenil --> trend smear as needed --> initially 4-->11-->14.5-->21-->26-->21->24--.28-->23-->19-->16.2 --> pulm is aware --> on abx cefepime/vanc->zosyn/vanc --> pressors as needed # Thrombocytopenia/Lymphopenia --> likely related to covid19 --> plt 129k # Respiratory failure --> s/p vent # Possible Pneumonia --> abx given --> on zosyn and vanc # Cardiomegaly # Transaminitis with Elevated AST # COPD # Chronic Kidney Disease --> per renal hd # Hypertension # Dvt ppx lovenox Appreciate consultation and dw Rn Subjective Constitutional: Denies: no symptoms, chills, fever, malaise, weakness, other HEENT: Denies: no symptoms, eye pain, blurred vision, tearing, double vision, ear pain, ear discharge, nose pain, nose congestion, throat pain, throat swelling, mouth pain, mouth swelling, other Respiratory: Denies: no symptoms, cough, shortness of breath, SOB with excertion, SOB at rest, sputum, wheezing, other Gastrointestinal/Abdominal: Denies: no symptoms, abdomen distended, abdominal pain, black stools, tarry stools, blood in stool, constipated, diarrhea, difficulty swallowing, nausea, poor appetite, poor fluid intake, rectal bleeding , vomiting, other Genitourinary: Denies: no symptoms, burning, discharge, frequency, flank pain, hematuria, incontinence, pain, urgency, other Neurologic/Psychiatric: Denies: no symptoms, anxiety, depressed, emotional problems, headache, numbness, paresthesia, pre-existing deficit, seizure, tingling, tremors, weakness, other Endocrine: Denies: no symptoms, excessive sweating, flushing, intolerance to cold, intolerance to heat, increased hunger, increased thirst, increased urine, unexplained weight gain, unexplained weight loss, other Allergies: Coded Allergies: No Known Allergies (Unverified , 05/28/19) Subjective 06/01 extremely agitated, not allowing labs draws, no night sweats, cbc ordered 06/02 confused, restraints, on abx and plaquenil, hgb 7.9, nrb 15 L 06/03 is with nonrebreather, but not compliant, remains confused 06/05 no bleeding, labs noted, no major bleeding, otherwise comfortable 06/06 labs reviewed, no bleeding, meds noted, no night sweats, on levo and nonrebreather 06/07 labs noted, no bleeding, meds reviewed, no bleeding, wbc higher 06/08 to get 2 units prbc, no night sweats, meds reviewed 06/09 is on cefepime and vanc, labs noted, ernesto Rn, no bleeding 06/10 no major changes, labs reviewed, wbc 28k, on abx, cefepime 06/12 remains in icu, labs noted, no night sweats or bleeding 06/13 sluggish pupils, remains agitated, per psych, no bleding, on vent, wbc sitll high 06/14 still confused, remains on vent, with ng, running nepro, on pressors 06/15 icu, febrile, non verbal, hgb 7.1, blood pending, completed plaq 06/16 remains in the icu, nonverbal, plan for hd tomorrow, ernesto rn Objective Objective Current Medications Medications (Trade) Dose Ordered Sig/Anthony Route PRN Reason Start Time Stop Time Status Last Admin Dose Admin Acetaminophen (Tylenol) 650 mg Q4H PRN NG Temp >100.5 06/13/19 11:00 07/13/19 10:59 06/17/19 06:37 Albuterol Sulfate (Proventil MDI) 2 puff Q4HRT INH 06/06/19 23:00 08/30/19 18:59 06/17/19 07:33 Allopurinol (allopurinoL) 300 mg DAILY NG 06/08/19 09:30 07/08/19 09:29 06/17/19 08:36 Chlorhexidine Gluconate (Michelle-Hex 2%) 1 applic DAILY@2000 TOPIC 06/07/19 20:00 09/05/19 19:59 06/16/19 20:44 Docusate Sodium (Colace) 100 mg THREE TIMES A DAY NG 06/07/19 13:00 07/07/19 12:59 06/17/19 08:36 Dopamine HCl/ Dextrose 250 ml @ 0 mls/hr Q24H PRN IV For hypotension 06/13/19 08:15 09/11/19 08:14 Enoxaparin Sodium (Lovenox) 30 mg DAILY SUBQ 06/07/19 09:00 08/27/19 08:59 06/17/19 08:37 Epoetin Aftab (Epoetin Aftab(ESRD on dialysis)) 10,000 unit SUBQ 06/07/19 21:00 08/31/19 20:59 06/16/19 20:52 Fentanyl Citrate 2500 mcg/Sodium Chloride 250 ml @ 0 mls/hr Q24H IV 06/13/19 07:00 06/20/19 06:59 06/17/19 04:54 Hydralazine HCl (Apresoline) 10 mg Q4H PRN IV Blood pressure over 160 systol 06/07/19 10:15 09/05/19 10:14 Midodrine (Pro-Amatine) 10 mg THREE TIMES A DAY NG 06/09/19 13:00 09/07/19 12:59 06/17/19 08:36 Norepinephrine Bitartrate 16 mg/ Dextrose 566 ml @ 0 mls/hr Q24H IV 06/13/19 09:45 07/13/19 09:44 06/16/19 19:51 Pantoprazole (Protonix) 40 mg Q12HR IVP 06/07/19 21:00 07/07/19 08:59 06/17/19 08:36 Piperacillin Sod/ Tazobactam Sod 2.25 gm/Dextrose 55 ml @ 110 mls/hr Q8HR IVPB 06/13/19 14:00 06/19/19 13:59 06/17/19 06:38 Salmeterol Xinafoate/ Fluticasone (Advair 100/50 Diskus) 1 puffs BID INH 06/07/19 09:00 08/27/19 08:59 06/11/19 09:14 Sevelamer Carbonate (Renvela) 1,600 mg Q6HR NG 06/14/19 12:00 09/05/19 12:59 06/17/19 06:37 Vancomycin HCl (Vanco rx to dose) 1 ea DAILY PRN MISC Per rx protocol 06/13/19 11:45 07/13/19 11:44 Vasopressin 100 units/Sodium Chloride 100 ml @ 0 mls/hr Q24H IV 06/12/19 11:00 07/12/19 10:59 06/15/19 11:08 Last 24 Hour Vital Signs Date Time Temp Pulse Resp B/P (MAP) Pulse Ox O2 Delivery O2 Flow Rate FiO2 06/17/19 07:30 83 30 99 Mechanical Ventilator 40 85 27 40 06/17/19 07:00 123/55 06/17/19 07:00 16 Mechanical Ventilator 40 06/17/19 07:00 83 27 123/55 (77) 97 06/17/19 06:30 102.3 84 27 127/56 (79) 97 06/17/19 06:22 100.5 06/17/19 06:00 84 27 115/55 (75) 97 06/17/19 06:00 115/55 06/17/19 06:00 26 Mechanical Ventilator 40 06/17/19 05:30 100.5 87 28 117/53 (74) 98 06/17/19 05:00 85 28 124/61 (82) 97 06/17/19 05:00 117/53 06/17/19 04:54 26 Mechanical Ventilator 40 06/17/19 04:30 86 23 132/61 (84) 98 06/17/19 04:00 Mechanical Ventilator 06/17/19 04:00 83 30 122/60 (80) 97 06/17/19 04:00 40 06/17/19 04:00 78 06/17/19 04:00 122/60 06/17/19 03:30 82 27 116/56 (76) 96 06/17/19 03:23 78 31 100 Mechanical Ventilator 40 82 27 50 06/17/19 03:00 129/65 06/17/19 03:00 79 26 129/65 (86) 99 06/17/19 02:30 99.6 77 27 117/59 (78) 98 06/17/19 02:15 130/64 06/17/19 02:00 76 28 130/64 (86) 98 06/17/19 01:30 77 26 125/61 (82) 98 06/17/19 01:00 135/63 06/17/19 01:00 77 28 135/63 (87) 98 06/17/19 00:30 77 27 137/61 (86) 98 06/17/19 00:00 Mechanical Ventilator 06/17/19 00:00 142/65 06/17/19 00:00 99.0 76 28 142/65 (90) 98 06/16/19 23:30 82 26 122/59 (80) 97 06/16/19 23:27 86 28 100 Mechanical Ventilator 40 82 27 50 06/16/19 23:00 84 25 118/65 (82) 100 06/16/19 23:00 118/65 06/16/19 22:30 86 23 124/62 (82) 98 06/16/19 22:00 115/64 06/16/19 22:00 26 Mechanical Ventilator 40 06/16/19 22:00 85 25 115/64 (81) 98 06/16/19 21:30 87 24 124/64 (84) 97 20 21:00 82 26 131/70 (90) 97 06/15/20 21:00 131/70 06/16/19 21:00 30 Mechanical Ventilator 40 06/16/19 20:45 128/66 20 20:30 133/70 20 20:30 99.5 83 25 133/65 (87) 100 20 20:15 138/68 5/6/20 20:00 Mechanical Ventilator 06/16/19 20:00 80 36 145/69 (94) 95 20 20:00 145/69 5/20 20:00 26 Mechanical Ventilator 40 20 20:00 40 /6/20 20:00 80 5/6/20 19:51 56/40 520 19:36 79 28 100 Mechanical Ventilator 40 82 27 50 5/6/20 19:30 83 25 147/79 (101) 100 5/6/20 19:00 77 26 136/71 (92) 100 5/6/20 19:00 136/71 5/6/20 19:00 26 Mechanical Ventilator 40 5/6/20 18:30 83 25 113/64 (80) 99 5/6/20 18:00 87 29 150/64 (92) 100 5/6/20 18:00 113/62 5/6/20 18:00 26 Mechanical Ventilator 40 5/620 17:30 79 30 152/74 (100) 100 5/6/20 17:00 81 30 141/74 (96) 100 5/6/20 17:00 122/65 5/6/20 17:00 24 Mechanical Ventilator 40 20 16:40 24 40 5/6/20 16:30 81 28 122/65 (84) 100 5/6/20 16:00 40 5/6/20 16:00 98.2 82 26 100/65 (77) 100 20 16:00 86 5/620 16:00 Mechanical Ventilator 56/20 16:00 100/65 5//20 16:00 26 Mechanical Ventilator 40 /6/20 15:30 79 26 126/73 (90) 100 5/6/20 15:30 81 26 100 Mechanical Ventilator 40 82 27 50 5/6/20 15:00 113/65 5/6/20 15:00 25 Mechanical Ventilator 40 5/6/20 15:00 78 24 113/65 (81) 100 5/6/20 14:00 93/53 5/6/20 14:00 24 Mechanical Ventilator 40 5/6/20 14:00 74 26 93/53 (66) 100 5/6/20 13:00 129/62 5/6/20 13:00 24 Mechanical Ventilator 40 5/6/20 13:00 73 26 129/62 (84) 98 5/6/20 12:30 76 26 76/41 (53) 98 5/6/20 12:00 40 5/6/20 12:00 116/58 5/6/20 12:00 24 Mechanical Ventilator 40 5/6/20 12:00 Mechanical Ventilator 5/6/20 12:00 99.9 76 26 116/58 (77) 97 5/6/20 12:00 76 5/20 11:30 77 26 110/60 (77) 98 20 11:00 84 26 100 Mechanical Ventilator 40 85 27 50 5/6/20 11:00 110/60 5//20 11:00 26 Mechanical Ventilator 40 520 11:00 76 27 110/60 (77) 99 /6/20 10:30 79 28 107/53 (71) 99 06/15/20 10:00 77 26 129/60 (83) 98 6/20 10:00 129/60 5/20 10:00 24 Mechanical Ventilator 40 06/16/19 09:30 75 25 165/75 (105) 100 06/16/19 09:11 99.8 06/16/19 09:00 79 31 121/60 (80) 99 20 09:00 121/60 20 09:00 25 Mechanical Ventilator 40 06/16/19 08:30 80 27 117/56 (76) 98 20 08:00 100.1 81 26 109/58 (75) 98 20 08:00 Mechanical Ventilator 06/16/19 08:00 40 20 08:00 109/58 20 08:00 26 Mechanical Ventilator 40 06/16/19 08:00 74 /20 07:30 86 25 124/62 (82) 100 20 07:25 112/62 20 07:23 81 29 100 Mechanical Ventilator 40 83 26 50 06/15/20 07:00 80 30 115/59 (77) 98 20 07:00 26 Mechanical Ventilator 40 20 06:45 117/62 5/20 06:30 80 30 129/61 (83) 98 06/15/20 06:00 121/51 5//20 06:00 26 Mechanical Ventilator 40 20 06:00 79 30 121/59 (79) 98 06/15/20 05:30 80 25 121/60 (80) 98 06/15/20 05:19 87 29 100 Mechanical Ventilator 50 84 29 50 5/20 05:00 82 26 122/59 (80) 99 20 05:00 122/59 5/6/20 05:00 26 Mechanical Ventilator 40 06/16/19 04:30 85 26 106/55 (72) 97 06/16/19 04:00 74 06/16/19 04:00 40 06/16/19 04:00 123/61 06/16/19 04:00 26 Mechanical Ventilator 60 06/16/19 04:00 100.3 74 28 123/61 (81) 100 06/16/19 04:00 Mechanical Ventilator 06/16/19 03:30 74 28 118/62 (80) 100 06/16/19 03:15 26 Mechanical Ventilator 60 06/16/19 03:00 74 26 118/61 (80) 100 06/16/19 03:00 118/61 06/16/19 03:00 26 Mechanical Ventilator 60 06/16/19 02:30 73 25 123/62 (82) 100 06/16/19 02:00 70 29 117/63 (81) 100 06/16/19 02:00 117/63 06/16/19 02:00 26 Mechanical Ventilator 60 06/16/19 01:30 71 25 115/66 (82) 100 06/16/19 01:16 87 28 100 Mechanical Ventilator 50 84 29 50 06/16/19 01:00 72 26 112/60 (77) 100 06/16/19 01:00 112/60 06/16/19 01:00 26 Mechanical Ventilator 60 06/16/19 00:30 74 25 106/56 (73) 100 06/16/19 00:00 99.0 73 19 104/56 (72) 100 06/16/19 00:00 Mechanical Ventilator 06/16/19 00:00 104/56 06/16/19 00:00 26 Mechanical Ventilator 60 06/15/19 23:30 71 26 104/55 (71) 100 06/15/19 23:03 84 29 100 Mechanical Ventilator 50 84 29 50 06/15/19 23:00 103/46 06/15/19 23:00 26 Mechanical Ventilator 60 06/15/19 23:00 84 26 103/46 (65) 98 06/15/19 22:30 80 8 98/58 (71) 100 06/15/19 22:00 82 12 104/60 (75) 100 06/15/19 22:00 104/60 06/15/19 22:00 25 Mechanical Ventilator 60 20 21:30 83 12 114/64 (81) 100 520 21:00 116/75 520 21:00 26 Mechanical Ventilator 60 20 21:00 77 29 116/75 (89) 100 /20 20:30 77 23 123/70 (87) 100 /20 20:00 98.3 78 16 124/72 (89) 100 20 20:00 116/75 520 20:00 26 Mechanical Ventilator 60 20 20:00 60 20 20:00 Mechanical Ventilator 520 20:00 74 5/06/29 19:30 87 33 111/73 (86) 100 06/15/19 19:16 81 30 99 Mechanical Ventilator 50 84 29 100 06/15/19 19:00 122/69 06/15/19 19:00 26 Mechanical Ventilator 60 06/15/19 19:00 78 22 122/69 (86) 100 06/15/19 18:30 96.2 78 32 120/69 (86) 100 20 18:00 72 32 117/65 (82) 100 20 18:00 120/65 06/15/19 18:00 26 Mechanical Ventilator 60 06/15/19 18:00 74 31 117/65 (82) 100 06/15/19 17:30 80 26 107/64 (78) 100 06/15/19 17:30 76 24 107/64 (78) 99 06/15/19 17:10 26 60 06/15/19 17:09 60/43 06/15/19 17:00 69 26 60/37 (45) 98 20 17:00 68 24 60/37 (45) 97 20 16:30 65 25 142/67 (92) 100 06/15/19 16:00 98.8 63 26 140/78 (98) 100 06/15/19 16:00 69 06/15/19 16:00 140/78 06/15/19 16:00 29 Mechanical Ventilator 60 06/15/19 16:00 60 06/15/19 15:30 60 26 92/49 (63) 100 06/15/19 15:30 65 25 71/47 (55) 100 06/15/19 15:24 66 30 50 06/15/19 15:00 67 27 126/67 (86) 100 06/15/19 15:00 126/67 06/15/19 15:00 26 Mechanical Ventilator 60 06/15/19 15:00 64 28 126/67 (86) 100 06/15/19 14:30 68 27 103/58 (73) 100 06/15/19 14:30 66 26 103/58 (73) 100 06/15/19 14:00 70 26 91/52 (65) 98 06/15/19 14:00 126/67 06/15/19 14:00 26 Mechanical Ventilator 60 06/15/19 13:30 73 26 95/53 (67) 99 06/15/19 13:00 70 26 91/52 (65) 99 06/15/19 13:00 93/63 06/15/19 13:00 26 Mechanical Ventilator 60 06/15/19 12:02 75 26 130/69 (89) 98 06/15/19 12:00 73 06/15/19 12:00 60 06/15/19 12:00 132/72 06/15/19 12:00 28 Mechanical Ventilator 60 06/15/19 11:22 71 31 50 06/15/19 11:08 130/76 06/15/19 11:08 26 Mechanical Ventilator 60 06/15/19 11:00 73 26 181/76 (111) 100 06/15/19 11:00 181/76 06/15/19 11:00 Mechanical Ventilator 60 06/15/19 10:30 72 26 166/69 (101) 97 06/15/19 10:00 75 26 66/41 (49) 100 06/15/19 10:00 66/41 06/15/19 10:00 27 Mechanical Ventilator 60 Intake and Output 06/16/19 06/17/19 19:00 07:00 Intake Total 1105.00 ml 1106 ml Output Total 2020 ml 15 ml Balance -915.00 ml 1091 ml Free Water 60 ml 310 ml IV Total 585.00 ml 396 ml Tube Feeding 210 ml 400 ml Blood Product 250 ml Output Urine Total 20 ml 15 ml Hemodialysis UF 2000 ml # Bowel Movements 1 Labs Test 06/15/19 04:00 06/15/19 04:10 06/16/19 04:00 06/17/19 04:00 Urine Eosinophils None seen (NONE SEEN) White Blood Count 19.2 K/UL (4.8-10.8) 16.2 K/UL (4.8-10.8) 14.4 K/UL (4.8-10.8) Red Blood Count 2.45 M/UL (4.70-6.10) 2.31 M/UL (4.70-6.10) 2.91 M/UL (4.70-6.10) Hemoglobin 7.7 G/DL (14.2-18.0) 7.1 G/DL (14.2-18.0) 8.9 G/DL (14.2-18.0) Hematocrit 22.5 % (42.0-52.0) 21.3 % (42.0-52.0) 26.8 % (42.0-52.0) Mean Corpuscular Volume 92 FL (80-99) 93 FL (80-99) 92 FL (80-99) Mean Corpuscular Hemoglobin 31.4 PG (27.0-31.0) 31.0 PG (27.0-31.0) 30.5 PG (27.0-31.0) Mean Corpuscular Hemoglobin Concent 34.2 G/DL (32.0-36.0) 33.5 G/DL (32.0-36.0) 33.2 G/DL (32.0-36.0) Red Cell Distribution Width 16.5 % (11.6-14.8) 19.9 % (11.6-14.8) 18.4 % (11.6-14.8) Platelet Count 111 K/UL (150-450) 110 K/UL (150-450) 121 K/UL (150-450) Mean Platelet Volume 7.0 FL (6.5-10.1) 8.3 FL (6.5-10.1) 7.7 FL (6.5-10.1) Neutrophils (%) (Auto) % (45.0-75.0) % (45.0-75.0) % (45.0-75.0) Lymphocytes (%) (Auto) % (20.0-45.0) % (20.0-45.0) % (20.0-45.0) Monocytes (%) (Auto) % (1.0-10.0) % (1.0-10.0) % (1.0-10.0) Eosinophils (%) (Auto) % (0.0-3.0) % (0.0-3.0) % (0.0-3.0) Basophils (%) (Auto) % (0.0-2.0) % (0.0-2.0) % (0.0-2.0) Differential Total Cells Counted 100 100 100 Neutrophils % (Manual) 82 % (45-75) 83 % (45-75) 85 % (45-75) Lymphocytes % (Manual) 4 % (20-45) 6 % (20-45) 9 % (20-45) Monocytes % (Manual) 14 % (1-10) 11 % (1-10) 4 % (1-10) Eosinophils % (Manual) 0 % (0-3) 0 % (0-3) 1 % (0-3) Basophils % (Manual) 0 % (0-2) 0 % (0-2) 0 % (0-2) Band Neutrophils 0 % (0-8) 0 % (0-8) 0 % (0-8) Nucleated Red Blood Cells 2 /100 WBC Platelet Estimate Decreased Decreased Decreased Platelet Morphology Normal Normal Normal Hypochromasia 3+ 1+ 2+ Anisocytosis 1+ 2+ 2+ Spherocytes 1+ 1+ Sodium Level 134 MMOL/L (136-145) 130 MMOL/L (136-145) 131 MMOL/L (136-145) Potassium Level 4.5 MMOL/L (3.5-5.1) 4.3 MMOL/L (3.5-5.1) 4.2 MMOL/L (3.5-5.1) Chloride Level 93 MMOL/L (98-107) 90 MMOL/L (98-107) 91 MMOL/L (98-107) Carbon Dioxide Level 25 MMOL/L (21-32) 24 MMOL/L (21-32) 25 MMOL/L (21-32) Anion Gap 16 mmol/L (5-15) 16 mmol/L (5-15) 15 mmol/L (5-15) Blood Urea Nitrogen 62 mg/dL (7-18) 71 mg/dL (7-18) 55 mg/dL (7-18) Creatinine 8.7 MG/DL (0.55-1.30) 9.9 MG/DL (0.55-1.30) 8.2 MG/DL (0.55-1.30) Estimat Glomerular Filtration Rate 6.2 mL/min (>60) 5.3 mL/min (>60) 6.6 mL/min (>60) Glucose Level 251 MG/DL (74-106) 225 MG/DL (74-106) 200 MG/DL (74-106) Uric Acid 5.3 MG/DL (2.6-7.2) 6.6 MG/DL (2.6-7.2) Calcium Level 8.0 MG/DL (8.5-10.1) 8.3 MG/DL (8.5-10.1) 7.9 MG/DL (8.5-10.1) Phosphorus Level 6.0 MG/DL (2.5-4.9) 6.5 MG/DL (2.5-4.9) 5.7 MG/DL (2.5-4.9) Magnesium Level 2.1 MG/DL (1.8-2.4) 2.1 MG/DL (1.8-2.4) 2.1 MG/DL (1.8-2.4) Total Bilirubin 0.4 MG/DL (0.2-1.0) 0.4 MG/DL (0.2-1.0) 0.5 MG/DL (0.2-1.0) Gamma Glutamyl Transpeptidase 12 U/L (5-85) Aspartate Amino Transf (AST/SGOT) 75 U/L (15-37) 46 U/L (15-37) 32 U/L (15-37) Alanine Aminotransferase (ALT/SGPT) 39 U/L (12-78) 29 U/L (12-78) 21 U/L (12-78) Alkaline Phosphatase 82 U/L (46-116) 76 U/L (46-116) 76 U/L (46-116) C-Reactive Protein, Quantitative 20.6 mg/dL (0.00-0.90) 24.1 mg/dL (0.00-0.90) Pro-B-Type Natriuretic Peptide 16212 pg/mL (0-125) 36785 pg/mL (0-125) > 96241 pg/mL (0-125) Total Protein 6.9 G/DL (6.4-8.2) 7.3 G/DL (6.4-8.2) 7.7 G/DL (6.4-8.2) Albumin 2.3 G/DL (3.4-5.0) 2.0 G/DL (3.4-5.0) 1.9 G/DL (3.4-5.0) Globulin 4.6 g/dL 5.3 g/dL 5.8 g/dL Albumin/Globulin Ratio 0.5 (1.0-2.7) 0.4 (1.0-2.7) 0.3 (1.0-2.7) Random Vancomycin Level 22.0 ug/mL Polychromasia 2+ Metamyelocytes % 1 % (0-0) Lactate Dehydrogenase 356 U/L (81-234) Height (Feet): 6 Height (Inches): 1.00 Weight (Pounds): 211 Objective Sp02 EP Interpretation: reviewed, normal General: confused, sedated Heent: bilateral eye normal inspection, bilateral eye PERRL ++Ng Respiratory: normal breath sounds, no respiratory distress,intubated+++ Cardiovascular: regular rate, rhythm, no edema Gastrointestinal: normal inspection, soft, non-distended Rectal: deferred Musculoskeletal: normal range of motion, non-tender Neurologic: alert, motor strength/tone normal, sensory intact, responsive, speech normal Skin: Decubitus/Ulcer - See RN skin exam. : jamaal+ Greg Cabral MD June 17, 2019 09:36
[2019-06-17] MEDS: Vasopressin 100 UNITS in NS 95 ML IV SCH (10:58)
[2019-06-17] MEDS: Norepinephrine Bitartrate 16 MG in D5W 500ml 550 ML IV SCH (12:08)
--- NOTE | 2019-06-17 12:10 | Diagnostic Imaging Report ---
Indication: Shortness of breath Technique: One view of the chest Comparison: 06/13/2019 Findings: 2 satisfactory positions of endotracheal tube, nasogastric tube, left subclavian central venous catheter. Bilateral infiltrates appear slightly improved but still extensive. The heart size is normal. Impression: Apparent slight improvement of bilateral infiltrates, since prior exam of 06/13/2019 Other stable findings as described
--- NOTE | 2019-06-17 13:39 | Cardiac Electrophysiology PN ---
Assessment/Plan Assessment/Plan 1. Elevated troponin. Troponin on May 27 and May 30 were negative; however , on June 01, it was elevated at 0.074. Repeat 0.05. Likely due to renal failure. On Aspirin. Echo EF 60%. 2. Septic shock. On Levo 14 mcg 3. End-stage renal disease, on hemodialysis per Dr. Cole. 4. Respiratory failure due to COVID-19 positive pneumonia. Still febrile On the Vent with 40% Fio2. Fu by Dr. Ted Leyva and Dr. Mckeon. 5. MRSA carrier. 6. COPD. 7. Anemia. 8. Depression. 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 In SR. S/P 2 units of PRBC and HD . Is Covid positive x 3 Objective Last 24 Hour Vital Signs Date Time Temp Pulse Resp B/P (MAP) Pulse Ox O2 Delivery O2 Flow Rate FiO2 06/17/19 13:29 77 26 40 06/17/19 12:36 99.8 06/17/19 12:08 111/53 06/17/19 12:00 40 06/17/19 12:00 Mechanical Ventilator 06/17/19 12:00 78 06/17/19 11:45 100.6 77 25 102/52 (69) 96 06/17/19 11:30 78 28 126/55 (78) 97 06/17/19 11:15 79 26 122/55 (77) 97 06/17/19 11:08 80 27 98 Mechanical Ventilator 40 79 26 40 06/17/19 11:00 78 26 124/57 (79) 97 06/17/19 11:00 122/55 06/17/19 11:00 26 Mechanical Ventilator 40 06/17/19 10:45 79 33 91/47 (62) 96 06/17/19 10:30 82 27 93/40 (57) 96 06/17/19 10:15 86 28 99/49 (66) 95 06/17/19 10:02 84 28 40 06/17/19 10:00 81 27 107/53 (71) 95 06/17/19 09:45 84 15 105/49 (67) 92 06/17/19 09:30 82 29 106/55 (72) 97 06/17/19 09:15 81 31 128/57 (80) 97 5/7/20 09:00 81 29 126/59 (81) 97 06/17/19 08:45 82 27 119/58 (78) 97 06/17/19 08:30 83 27 126/57 (80) 97 06/17/19 08:15 83 28 126/56 (79) 97 06/17/19 08:00 102.2 83 27 118/56 (76) 97 06/17/19 08:00 Mechanical Ventilator 06/17/19 08:00 79 06/17/19 08:00 40 06/17/19 07:45 85 28 122/60 (80) 96 06/17/19 07:30 83 25 117/55 (75) 97 06/17/19 07:30 83 30 99 Mechanical Ventilator 40 85 27 40 06/17/19 07:15 102.8 83 26 127/57 (80) 97 06/17/19 07:00 123/55 06/17/19 07:00 16 Mechanical Ventilator 40 06/17/19 07:00 83 27 123/55 (77) 97 06/17/19 06:30 102.3 84 27 127/56 (79) 97 06/17/19 06:22 100.5 06/17/19 06:00 84 27 115/55 (75) 97 06/17/19 06:00 115/55 06/17/19 06:00 26 Mechanical Ventilator 40 06/17/19 05:30 100.5 87 28 117/53 (74) 98 06/17/19 05:00 85 28 124/61 (82) 97 06/17/19 05:00 117/53 06/17/19 04:54 26 Mechanical Ventilator 40 06/17/19 04:30 86 23 132/61 (84) 98 06/17/19 04:00 Mechanical Ventilator 06/17/19 04:00 83 30 122/60 (80) 97 06/17/19 04:00 40 06/17/19 04:00 78 06/17/19 04:00 122/60 06/17/19 03:30 82 27 116/56 (76) 96 06/17/19 03:23 78 31 100 Mechanical Ventilator 40 82 27 50 06/17/19 03:00 129/65 06/17/19 03:00 79 26 129/65 (86) 99 06/17/19 02:30 99.6 77 27 117/59 (78) 98 06/17/19 02:15 130/64 06/17/19 02:00 76 28 130/64 (86) 98 06/17/19 01:30 77 26 125/61 (82) 98 06/17/19 01:00 135/63 06/17/19 01:00 77 28 135/63 (87) 98 06/17/19 00:30 77 27 137/61 (86) 98 06/17/19 00:00 Mechanical Ventilator 06/17/19 00:00 142/65 06/17/19 00:00 99.0 76 28 142/65 (90) 98 06/16/19 23:30 82 26 122/59 (80) 97 06/16/19 23:27 86 28 100 Mechanical Ventilator 40 82 27 50 06/16/19 23:00 84 25 118/65 (82) 100 06/16/19 23:00 118/65 06/16/19 22:30 86 23 124/62 (82) 98 06/16/19 22:00 115/64 06/16/19 22:00 26 Mechanical Ventilator 40 06/16/19 22:00 85 25 115/64 (81) 98 20 21:30 87 24 124/64 (84) 97 20 21:00 82 26 131/70 (90) 97 06/15/20 21:00 131/70 06/16/19 21:00 30 Mechanical Ventilator 40 06/16/19 20:45 128/66 520 20:30 133/70 20 20:30 99.5 83 25 133/65 (87) 100 20 20:15 138/68 5/6/20 20:00 Mechanical Ventilator 06/16/19 20:00 80 36 145/69 (94) 95 20 20:00 145/69 20 20:00 26 Mechanical Ventilator 40 06/16/19 20:00 40 /20 20:00 80 20 19:51 56/40 520 19:36 79 28 100 Mechanical Ventilator 40 82 27 50 5/20 19:30 83 25 147/79 (101) 100 06/16/19 19:00 77 26 136/71 (92) 100 06/16/19 19:00 136/71 06/16/19 19:00 26 Mechanical Ventilator 40 06/16/19 18:30 83 25 113/64 (80) 99 06/16/19 18:00 87 29 150/64 (92) 100 06/16/19 18:00 113/62 06/16/19 18:00 26 Mechanical Ventilator 40 06/16/19 17:30 79 30 152/74 (100) 100 06/16/19 17:00 81 30 141/74 (96) 100 06/16/19 17:00 122/65 06/16/19 17:00 24 Mechanical Ventilator 40 06/16/19 16:40 24 40 06/16/19 16:30 81 28 122/65 (84) 100 06/16/19 16:00 40 06/16/19 16:00 98.2 82 26 100/65 (77) 100 06/16/19 16:00 86 06/16/19 16:00 Mechanical Ventilator 06/16/19 16:00 100/65 06/16/19 16:00 26 Mechanical Ventilator 40 06/16/19 15:30 79 26 126/73 (90) 100 06/16/19 15:30 81 26 100 Mechanical Ventilator 40 82 27 50 06/16/19 15:00 113/65 06/16/19 15:00 25 Mechanical Ventilator 40 06/16/19 15:00 78 24 113/65 (81) 100 06/16/19 14:00 93/53 06/16/19 14:00 24 Mechanical Ventilator 40 06/16/19 14:00 74 26 93/53 (66) 100 Intake and Output 06/16/19 06/17/19 19:00 07:00 Intake Total 1105.00 ml 1106 ml Output Total 2020 ml 15 ml Balance -915.00 ml 1091 ml Free Water 60 ml 310 ml IV Total 585.00 ml 396 ml Tube Feeding 210 ml 400 ml Blood Product 250 ml Output Urine Total 20 ml 15 ml Hemodialysis UF 2000 ml # Bowel Movements 1 Laboratory Tests Test 06/17/19 04:00 White Blood Count 14.4 K/UL (4.8-10.8) H Red Blood Count 2.91 M/UL (4.70-6.10) L Hemoglobin 8.9 G/DL (14.2-18.0) L Hematocrit 26.8 % (42.0-52.0) L Mean Corpuscular Volume 92 FL (80-99) Mean Corpuscular Hemoglobin 30.5 PG (27.0-31.0) Mean Corpuscular Hemoglobin Concent 33.2 G/DL (32.0-36.0) Red Cell Distribution Width 18.4 % (11.6-14.8) H Platelet Count 121 K/UL (150-450) L Mean Platelet Volume 7.7 FL (6.5-10.1) Neutrophils (%) (Auto) % (45.0-75.0) Lymphocytes (%) (Auto) % (20.0-45.0) Monocytes (%) (Auto) % (1.0-10.0) Eosinophils (%) (Auto) % (0.0-3.0) Basophils (%) (Auto) % (0.0-2.0) Differential Total Cells Counted 100 Neutrophils % (Manual) 85 % (45-75) H Lymphocytes % (Manual) 9 % (20-45) L Monocytes % (Manual) 4 % (1-10) Eosinophils % (Manual) 1 % (0-3) Basophils % (Manual) 0 % (0-2) Metamyelocytes % 1 % (0-0) H Band Neutrophils 0 % (0-8) Platelet Estimate Decreased L Platelet Morphology Normal Hypochromasia 2+ Anisocytosis 2+ Spherocytes 1+ Sodium Level 131 MMOL/L (136-145) L Potassium Level 4.2 MMOL/L (3.5-5.1) Chloride Level 91 MMOL/L (98-107) L Carbon Dioxide Level 25 MMOL/L (21-32) Anion Gap 15 mmol/L (5-15) Blood Urea Nitrogen 55 mg/dL (7-18) H Creatinine 8.2 MG/DL (0.55-1.30) H Estimat Glomerular Filtration Rate 6.6 mL/min (>60) Glucose Level 200 MG/DL (74-106) H Calcium Level 7.9 MG/DL (8.5-10.1) L Phosphorus Level 5.7 MG/DL (2.5-4.9) H Magnesium Level 2.1 MG/DL (1.8-2.4) Total Bilirubin 0.5 MG/DL (0.2-1.0) Aspartate Amino Transf (AST/SGOT) 32 U/L (15-37) Alanine Aminotransferase (ALT/SGPT) 21 U/L (12-78) Alkaline Phosphatase 76 U/L (46-116) Lactate Dehydrogenase 356 U/L (81-234) H C-Reactive Protein, Quantitative 4.5 mg/dL (0.00-0.90) H Pro-B-Type Natriuretic Peptide > 17585 pg/mL (0-125) H Total Protein 7.7 G/DL (6.4-8.2) Albumin 1.9 G/DL (3.4-5.0) L Globulin 5.8 g/dL Albumin/Globulin Ratio 0.3 (1.0-2.7) L Microbiology Date/Time Source Procedure Growth Status 06/14/19 14:20 Sputum Gram Stain - Final Complete 06/14/19 14:20 Sputum Sputum Culture - Final NORMAL UPPER RESPIRATORY WALDEMAR PRESENT Complete Objective HEAD AND NECK: No JVD.Orally intubated LUNGS: Decreased breath sounds. CARDIOVASCULAR: Regular S1 and S2. Tachycardic. ABDOMEN: Soft. EXTREMITIES: No pitting edema. New Left FV Gio Engle MD June 17, 2019 13:39
--- NOTE | 2019-06-17 16:42 | General Progress Note ---
Assessment/Plan Problem List: (1) Anemia ICD Codes: D64.9 - Anemia, unspecified SNOMED: 710851659 (2) Renal failure ICD Codes: N19 - Unspecified kidney failure SNOMED: 05238422 (3) Suspected COVID-19 virus infection ICD Codes: R68.89 - Other general symptoms and signs SNOMED: 645220140 (4) HTN (hypertension) ICD Codes: I10 - Essential (primary) hypertension SNOMED: 83701308 (5) CASSANDRA (acute kidney injury) ICD Codes: N17.9 - Acute kidney failure, unspecified SNOMED: 2648626, 78215450 (6) Anemia in chronic kidney disease (CKD) ICD Codes: N18.9 - Chronic kidney disease, unspecified; D63.1 - Anemia in chronic kidney disease SNOMED: 571654553 (7) Suspected COVID-19 virus infection ICD Codes: R68.89 - Other general symptoms and signs SNOMED: 201621502 Status: progressing Assessment/Plan: afebrile no wheezing weak abx per id pna covid positve iresp failure sepsis hyponatrmia improving leukocytosis Subjective ROS Limited/Unobtainable: Yes Allergies: Coded Allergies: No Known Allergies (Unverified , 05/28/19) Objective Last 24 Hour Vital Signs Date Time Temp Pulse Resp B/P (MAP) Pulse Ox O2 Delivery O2 Flow Rate FiO2 06/17/19 16:00 76 24 94/46 (62) 95 06/17/19 16:00 77 06/17/19 15:30 78 26 98/47 (64) 95 06/17/19 15:11 79 26 97 Mechanical Ventilator 40 79 26 40 06/17/19 15:00 79 26 121/58 (79) 95 06/17/19 14:30 70 26 129/56 (80) 100 06/17/19 14:00 79 26 142/82 (102) 95 06/17/19 14:00 125/52 06/17/19 14:00 26 Mechanical Ventilator 40 06/17/19 13:30 82 24 131/59 (83) 99 06/17/19 13:29 77 26 40 06/17/19 13:15 76 25 122/56 (78) 97 06/17/19 13:00 77 26 125/56 (79) 97 06/17/19 13:00 122/56 06/17/19 13:00 26 Mechanical Ventilator 40 06/17/19 12:45 78 26 119/58 (78) 96 06/17/19 12:36 99.8 06/17/19 12:30 78 26 119/58 (78) 97 06/17/19 12:15 99.8 75 29 131/57 (81) 97 06/17/19 12:08 111/53 06/17/19 12:00 40 06/17/19 12:00 Mechanical Ventilator 06/17/19 12:00 78 06/17/19 12:00 111/53 06/17/19 12:00 40 Mechanical Ventilator 40 06/17/19 12:00 75 28 111/53 (72) 95 06/17/19 11:45 100.6 77 25 102/52 (69) 96 06/17/19 11:30 78 28 126/55 (78) 97 06/17/19 11:15 79 26 122/55 (77) 97 06/17/19 11:08 80 27 98 Mechanical Ventilator 40 79 26 40 06/17/19 11:00 78 26 124/57 (79) 97 06/17/19 11:00 122/55 06/17/19 11:00 26 Mechanical Ventilator 40 06/17/19 10:45 79 33 91/47 (62) 96 06/17/19 10:30 82 27 93/40 (57) 96 06/17/19 10:15 86 28 99/49 (66) 95 06/17/19 10:02 84 28 40 06/17/19 10:00 81 27 107/53 (71) 95 06/17/19 10:00 99/49 06/17/19 10:00 26 Mechanical Ventilator 40 06/17/19 09:45 84 15 105/49 (67) 92 06/17/19 09:30 82 29 106/55 (72) 97 06/17/19 09:15 81 31 128/57 (80) 97 06/17/19 09:00 126/59 06/17/19 09:00 26 Mechanical Ventilator 40 06/17/19 09:00 81 29 126/59 (81) 97 06/17/19 08:45 82 27 119/58 (78) 97 06/17/19 08:30 83 27 126/57 (80) 97 06/17/19 08:15 83 28 126/56 (79) 97 06/17/19 08:00 102.2 83 27 118/56 (76) 97 06/17/19 08:00 126/56 06/17/19 08:00 26 Mechanical Ventilator 40 06/17/19 08:00 Mechanical Ventilator 06/17/19 08:00 79 06/17/19 08:00 40 06/17/19 07:45 85 28 122/60 (80) 96 06/17/19 07:30 83 25 117/55 (75) 97 06/17/19 07:30 83 30 99 Mechanical Ventilator 40 85 27 40 06/17/19 07:15 102.8 83 26 127/57 (80) 97 06/17/19 07:00 123/55 06/17/19 07:00 16 Mechanical Ventilator 40 06/17/19 07:00 83 27 123/55 (77) 97 06/17/19 06:30 102.3 84 27 127/56 (79) 97 06/17/19 06:22 100.5 06/17/19 06:00 84 27 115/55 (75) 97 06/17/19 06:00 115/55 06/17/19 06:00 26 Mechanical Ventilator 40 06/17/19 05:30 100.5 87 28 117/53 (74) 98 06/17/19 05:00 85 28 124/61 (82) 97 06/17/19 05:00 117/53 06/17/19 04:54 26 Mechanical Ventilator 40 06/17/19 04:30 86 23 132/61 (84) 98 06/17/19 04:00 Mechanical Ventilator 06/17/19 04:00 83 30 122/60 (80) 97 06/17/19 04:00 40 06/17/19 04:00 78 06/17/19 04:00 122/60 06/17/19 03:30 82 27 116/56 (76) 96 06/17/19 03:23 78 31 100 Mechanical Ventilator 40 82 27 50 06/17/19 03:00 129/65 06/17/19 03:00 79 26 129/65 (86) 99 06/17/19 02:30 99.6 77 27 117/59 (78) 98 06/17/19 02:15 130/64 06/17/19 02:00 76 28 130/64 (86) 98 06/17/19 01:30 77 26 125/61 (82) 98 20 01:00 135/63 06/17/19 01:00 77 28 135/63 (87) 98 20 00:30 77 27 137/61 (86) 98 20 00:00 Mechanical Ventilator 06/17/19 00:00 142/65 06/17/19 00:00 99.0 76 28 142/65 (90) 98 20 23:30 82 26 122/59 (80) 97 20 23:27 86 28 100 Mechanical Ventilator 40 82 27 50 5/620 23:00 84 25 118/65 (82) 100 20 23:00 118/65 20 22:30 86 23 124/62 (82) 98 20 22:00 115/64 20 22:00 26 Mechanical Ventilator 40 06/16/19 22:00 85 25 115/64 (81) 98 20 21:30 87 24 124/64 (84) 97 20 21:00 82 26 131/70 (90) 97 06/15/20 21:00 131/70 520 21:00 30 Mechanical Ventilator 40 06/16/19 20:45 128/66 5//20 20:30 133/70 //20 20:30 99.5 83 25 133/65 (87) 100 20 20:15 138/68 5/6/20 20:00 Mechanical Ventilator 06/16/19 20:00 80 36 145/69 (94) 95 56/20 20:00 145/69 5/6/20 20:00 26 Mechanical Ventilator 40 5//20 20:00 40 5/6/20 20:00 80 5/6/20 19:51 56/40 5/6/20 19:36 79 28 100 Mechanical Ventilator 40 82 27 50 5/6/20 19:30 83 25 147/79 (101) 100 5/6/20 19:00 77 26 136/71 (92) 100 5/6/20 19:00 136/71 5/6/20 19:00 26 Mechanical Ventilator 40 20 18:30 83 25 113/64 (80) 99 06/16/19 18:00 87 29 150/64 (92) 100 06/16/19 18:00 113/62 06/16/19 18:00 26 Mechanical Ventilator 40 06/16/19 17:30 79 30 152/74 (100) 100 06/16/19 17:00 81 30 141/74 (96) 100 06/16/19 17:00 122/65 06/16/19 17:00 24 Mechanical Ventilator 40 Intake and Output 06/16/19 06/17/19 19:00 07:00 Intake Total 1105.00 ml 1106 ml Output Total 2020 ml 15 ml Balance -915.00 ml 1091 ml Free Water 60 ml 310 ml IV Total 585.00 ml 396 ml Tube Feeding 210 ml 400 ml Blood Product 250 ml Output Urine Total 20 ml 15 ml Hemodialysis UF 2000 ml # Bowel Movements 1 Laboratory Tests 06/17/19 04:00: White Blood Count 14.4H, Red Blood Count 2.91L, Hemoglobin 8.9L, Hematocrit 26.8L, Mean Corpuscular Volume 92, Mean Corpuscular Hemoglobin 30.5, Mean Corpuscular Hemoglobin Concent 33.2, Red Cell Distribution Width 18.4H, Platelet Count 121L, Mean Platelet Volume 7.7, Neutrophils (%) (Auto) , Lymphocytes (%) (Auto) , Monocytes (%) (Auto) , Eosinophils (%) (Auto) , Basophils (%) (Auto) , Differential Total Cells Counted 100, Neutrophils % ( Manual) 85H, Lymphocytes % (Manual) 9L, Monocytes % (Manual) 4, Eosinophils % ( Manual) 1, Basophils % (Manual) 0, Metamyelocytes % 1H, Band Neutrophils 0, Platelet Estimate DecreasedL, Platelet Morphology Normal, Hypochromasia 2+, Anisocytosis 2+, Spherocytes 1+, Sodium Level 131L, Potassium Level 4.2, Chloride Level 91L, Carbon Dioxide Level 25, Anion Gap 15, Blood Urea Nitrogen 55H, Creatinine 8.2H, Estimat Glomerular Filtration Rate 6.6, Glucose Level 200H , Calcium Level 7.9L, Phosphorus Level 5.7H, Magnesium Level 2.1, Total Bilirubin 0.5, Aspartate Amino Transf (AST/SGOT) 32, Alanine Aminotransferase ( ALT/SGPT) 21, Alkaline Phosphatase 76, Lactate Dehydrogenase 356H, C-Reactive Protein, Quantitative 4.5H, Pro-B-Type Natriuretic Peptide > 70273H, Total Protein 7.7, Albumin 1.9L, Globulin 5.8, Albumin/Globulin Ratio 0.3L Height (Feet): 6 Height (Inches): 1.00 Weight (Pounds): 211 Karishma Mulliagn MD June 17, 2019 16:42
--- NOTE | 2019-06-17 18:27 | Surgery Progress Note ---
Surgery Progress Note Subjective Procedure Performed Right femoral temporary hemodialysis catheter insertion Additional Comments levo 12. off vaso 40% with ppep 8 slowly improving HD Objective Last 24 Hour Vital Signs Date Time Temp Pulse Resp B/P (MAP) Pulse Ox O2 Delivery O2 Flow Rate FiO2 06/17/19 17:44 98.3 06/17/19 17:35 78 26 95/50 (65) 98 06/17/19 17:13 26 Mechanical Ventilator 40 06/17/19 17:00 83 27 109/57 (74) 98 06/17/19 16:58 78 28 40 06/17/19 16:30 78 27 98/55 (69) 98 06/17/19 16:00 40 06/17/19 16:00 76 24 94/46 (62) 95 06/17/19 16:00 Mechanical Ventilator 06/17/19 16:00 77 06/17/19 15:30 78 26 98/47 (64) 95 06/17/19 15:11 79 26 97 Mechanical Ventilator 40 79 26 40 06/17/19 15:00 79 26 121/58 (79) 95 06/17/19 14:30 70 26 129/56 (80) 100 06/17/19 14:00 79 26 142/82 (102) 95 06/17/19 14:00 125/52 06/17/19 14:00 26 Mechanical Ventilator 40 06/17/19 13:30 82 24 131/59 (83) 99 06/17/19 13:29 77 26 40 06/17/19 13:15 76 25 122/56 (78) 97 06/17/19 13:00 77 26 125/56 (79) 97 06/17/19 13:00 122/56 06/17/19 13:00 26 Mechanical Ventilator 40 06/17/19 12:45 78 26 119/58 (78) 96 06/17/19 12:30 78 26 119/58 (78) 97 06/17/19 12:15 99.8 75 29 131/57 (81) 97 06/17/19 12:08 111/53 06/17/19 12:00 40 06/17/19 12:00 Mechanical Ventilator 06/17/19 12:00 78 06/17/19 12:00 111/53 06/17/19 12:00 40 Mechanical Ventilator 40 06/17/19 12:00 75 28 111/53 (72) 95 06/17/19 11:45 100.6 77 25 102/52 (69) 96 06/17/19 11:30 78 28 126/55 (78) 97 06/17/19 11:15 79 26 122/55 (77) 97 06/17/19 11:08 80 27 98 Mechanical Ventilator 40 79 26 40 06/17/19 11:00 78 26 124/57 (79) 97 06/17/19 11:00 122/55 06/17/19 11:00 26 Mechanical Ventilator 40 06/17/19 10:45 79 33 91/47 (62) 96 06/17/19 10:30 82 27 93/40 (57) 96 06/17/19 10:15 86 28 99/49 (66) 95 06/17/19 10:02 84 28 40 06/17/19 10:00 81 27 107/53 (71) 95 06/17/19 10:00 99/49 06/17/19 10:00 26 Mechanical Ventilator 40 06/17/19 09:45 84 15 105/49 (67) 92 06/17/19 09:30 82 29 106/55 (72) 97 06/17/19 09:15 81 31 128/57 (80) 97 06/17/19 09:00 126/59 06/17/19 09:00 26 Mechanical Ventilator 40 06/17/19 09:00 81 29 126/59 (81) 97 06/17/19 08:45 82 27 119/58 (78) 97 06/17/19 08:30 83 27 126/57 (80) 97 06/17/19 08:15 83 28 126/56 (79) 97 06/17/19 08:00 102.2 83 27 118/56 (76) 97 06/17/19 08:00 126/56 06/17/19 08:00 26 Mechanical Ventilator 40 06/17/19 08:00 Mechanical Ventilator 06/17/19 08:00 79 06/17/19 08:00 40 06/17/19 07:45 85 28 122/60 (80) 96 06/17/19 07:30 83 25 117/55 (75) 97 06/17/19 07:30 83 30 99 Mechanical Ventilator 40 85 27 40 06/17/19 07:15 102.8 83 26 127/57 (80) 97 06/17/19 07:00 123/55 06/17/19 07:00 16 Mechanical Ventilator 40 06/17/19 07:00 83 27 123/55 (77) 97 06/17/19 06:30 102.3 84 27 127/56 (79) 97 06/17/19 06:22 100.5 06/17/19 06:00 84 27 115/55 (75) 97 06/17/19 06:00 115/55 06/17/19 06:00 26 Mechanical Ventilator 40 06/17/19 05:30 100.5 87 28 117/53 (74) 98 06/17/19 05:00 85 28 124/61 (82) 97 06/17/19 05:00 117/53 06/17/19 04:54 26 Mechanical Ventilator 40 06/17/19 04:30 86 23 132/61 (84) 98 06/17/19 04:00 Mechanical Ventilator 06/17/19 04:00 83 30 122/60 (80) 97 06/17/19 04:00 40 06/17/19 04:00 78 06/17/19 04:00 122/60 06/17/19 03:30 82 27 116/56 (76) 96 06/17/19 03:23 78 31 100 Mechanical Ventilator 40 82 27 50 06/17/19 03:00 129/65 06/17/19 03:00 79 26 129/65 (86) 99 06/17/19 02:30 99.6 77 27 117/59 (78) 98 06/17/19 02:15 130/64 06/17/19 02:00 76 28 130/64 (86) 98 06/17/19 01:30 77 26 125/61 (82) 98 06/17/19 01:00 135/63 06/17/19 01:00 77 28 135/63 (87) 98 06/17/19 00:30 77 27 137/61 (86) 98 06/17/19 00:00 Mechanical Ventilator 06/17/19 00:00 142/65 06/17/19 00:00 99.0 76 28 142/65 (90) 98 06/16/19 23:30 82 26 122/59 (80) 97 06/16/19 23:27 86 28 100 Mechanical Ventilator 40 82 27 50 06/16/19 23:00 84 25 118/65 (82) 100 06/16/19 23:00 118/65 06/16/19 22:30 86 23 124/62 (82) 98 06/16/19 22:00 115/64 06/16/19 22:00 26 Mechanical Ventilator 40 06/16/19 22:00 85 25 115/64 (81) 98 06/16/19 21:30 87 24 124/64 (84) 97 06/16/19 21:00 82 26 131/70 (90) 97 06/16/19 21:00 131/70 06/16/19 21:00 30 Mechanical Ventilator 40 06/16/19 20:45 128/66 06/16/19 20:30 133/70 06/16/19 20:30 99.5 83 25 133/65 (87) 100 06/16/19 20:15 138/68 06/16/19 20:00 Mechanical Ventilator 06/16/19 20:00 80 36 145/69 (94) 95 06/16/19 20:00 145/69 06/16/19 20:00 26 Mechanical Ventilator 40 06/16/19 20:00 40 06/16/19 20:00 80 06/16/19 19:51 56/40 06/16/19 19:36 79 28 100 Mechanical Ventilator 40 82 27 50 06/16/19 19:30 83 25 147/79 (101) 100 06/16/19 19:00 77 26 136/71 (92) 100 06/16/19 19:00 136/71 06/16/19 19:00 26 Mechanical Ventilator 40 06/16/19 18:30 83 25 113/64 (80) 99 I&O Intake and Output 06/16/19 06/17/19 19:00 07:00 Intake Total 1105.00 ml 1106 ml Output Total 2020 ml 15 ml Balance -915.00 ml 1091 ml Free Water 60 ml 310 ml IV Total 585.00 ml 396 ml Tube Feeding 210 ml 400 ml Blood Product 250 ml Output Urine Total 20 ml 15 ml Hemodialysis UF 2000 ml # Bowel Movements 1 Dressing: dry Wound: clean Drains: other - both line working Cardiovascular: RSR Respiratory: decreased breath sounds Abdomen: soft, non-tender, present bowel sounds Extremities: no tenderness, no cyanosis Laboratory Tests Test 5/7/20 04:00 White Blood Count 14.4 K/UL (4.8-10.8) H Red Blood Count 2.91 M/UL (4.70-6.10) L Hemoglobin 8.9 G/DL (14.2-18.0) L Hematocrit 26.8 % (42.0-52.0) L Mean Corpuscular Volume 92 FL (80-99) Mean Corpuscular Hemoglobin 30.5 PG (27.0-31.0) Mean Corpuscular Hemoglobin Concent 33.2 G/DL (32.0-36.0) Red Cell Distribution Width 18.4 % (11.6-14.8) H Platelet Count 121 K/UL (150-450) L Mean Platelet Volume 7.7 FL (6.5-10.1) Neutrophils (%) (Auto) % (45.0-75.0) Lymphocytes (%) (Auto) % (20.0-45.0) Monocytes (%) (Auto) % (1.0-10.0) Eosinophils (%) (Auto) % (0.0-3.0) Basophils (%) (Auto) % (0.0-2.0) Differential Total Cells Counted 100 Neutrophils % (Manual) 85 % (45-75) H Lymphocytes % (Manual) 9 % (20-45) L Monocytes % (Manual) 4 % (1-10) Eosinophils % (Manual) 1 % (0-3) Basophils % (Manual) 0 % (0-2) Metamyelocytes % 1 % (0-0) H Band Neutrophils 0 % (0-8) Platelet Estimate Decreased L Platelet Morphology Normal Hypochromasia 2+ Anisocytosis 2+ Spherocytes 1+ Sodium Level 131 MMOL/L (136-145) L Potassium Level 4.2 MMOL/L (3.5-5.1) Chloride Level 91 MMOL/L (98-107) L Carbon Dioxide Level 25 MMOL/L (21-32) Anion Gap 15 mmol/L (5-15) Blood Urea Nitrogen 55 mg/dL (7-18) H Creatinine 8.2 MG/DL (0.55-1.30) H Estimat Glomerular Filtration Rate 6.6 mL/min (>60) Glucose Level 200 MG/DL (74-106) H Calcium Level 7.9 MG/DL (8.5-10.1) L Phosphorus Level 5.7 MG/DL (2.5-4.9) H Magnesium Level 2.1 MG/DL (1.8-2.4) Total Bilirubin 0.5 MG/DL (0.2-1.0) Aspartate Amino Transf (AST/SGOT) 32 U/L (15-37) Alanine Aminotransferase (ALT/SGPT) 21 U/L (12-78) Alkaline Phosphatase 76 U/L (46-116) Lactate Dehydrogenase 356 U/L (81-234) H C-Reactive Protein, Quantitative 4.5 mg/dL (0.00-0.90) H Pro-B-Type Natriuretic Peptide > 77112 pg/mL (0-125) H Total Protein 7.7 G/DL (6.4-8.2) Albumin 1.9 G/DL (3.4-5.0) L Globulin 5.8 g/dL Albumin/Globulin Ratio 0.3 (1.0-2.7) L Plan Problems: (1) Suspected COVID-19 virus infection (2) HTN (hypertension) (3) CASSANDRA (acute kidney injury) Assessment & Plan: Needs urgent HD needs access patient okay and consented see note will follow with recs new line placed discussed with team and nephrology HD line functional when checked has TPA now please use appropriately Cathflo used again this flow during dialysis on 430 was low. Will monitor may need line change 5/4 plan for HD as per renal (4) Anemia in chronic kidney disease (CKD) (5) Anemia (6) Renal failure (7) Suspected COVID-19 virus infection (8) COVID-19 Assessment & Plan: COVID + c diff negative febrile leukocytosis renal insufficiency see above cont resp care Rx as per ID worsening on vent support now cxr noted on pressors prognosis guarded Yaniv Mast June 17, 2019 18:27
[2019-06-17] MEDS: Dyna-Hex 2% Top Sol 2oz TOPIC SCH (20:32)
[2019-06-18] VITALS (73 sets, daily range): BP systolic 84–150; BP diastolic 50–130
--- NOTE | 2019-06-18 00:47 | Pulmonolgy Critical Care Note ---
Critical Care - Asmt/Plan Assessment/Plan: Pulmonary CCM Progress Note HPI: Patient is a 68 year old man, prison resident, admitted c/o shortness of breath, cough, noted to have Covid 19 Pneumonia. S/p intubation, remains on pressors PRN, CXR imrpoving FIO2 40-50%, adequate O2 sats, improving HD tolerated Anemia Seen earlier Seen on 06/17/2019 ID following On HD per Renal Past Medical History: COPD, CKD, Hypertension, Anemia Hypotension requiring pressors, in ICU Persistently elevated WCC Allergies: No Known Allergies Improving Pulmonary Status on HD Physical Exam Vital Signs Noted Sedated on ventilator WDWN, no distress HEENT: NCAT,moist mm Chest: Occasional rhonchi Heart: HS1, HS2, RRR Abdomen: SNTND, no masses Extremities: Well perfused, no edema [employer]: No focal signs, no seizures, seadted Impression: COVID-19 virus infection Pneumonia Respiratory failure on ventilator Volume overload improving - on HD Cardiomegaly Lymphopenia Elevated AST COPD Chronic Kidney Disease - HD Hypertension Worsening anemia Plan: Antibiotics per ID HD Pressors PRN ACVC ABG PRN HAND [employer] RE[employer]ER Medications 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 Monitor cultures/viral studies PPX Hemodialysis per Renal Psychiatry following [facility] - [facility] requested for when available, [facility] - not available as yet Laboratory Tests Noted: CXR: Hypoventilatory exam, interstitial changes, cardiomegaly, improving infiltrates Subjective ROS Limited/Unobtainable: No Constitutional: Denies: fever Respiratory: Reports: dry cough, shortness of breath Gastrointestinal/Abdominal: Reports: diarrhea, other - colace was stopped Psychiatric: Reports: other - refuses labs Allergies: Coded Allergies: No Known Allergies (Unverified , 05/28/19) All Systems: reviewed and negative except above Labs noted Critical Care - Objective Last 24 Hour Vital Signs Date Time Temp Pulse Resp B/P (MAP) Pulse Ox O2 Delivery O2 Flow Rate FiO2 06/18/19 00:00 108/58 06/18/19 00:00 29 Mechanical Ventilator 40 06/17/19 23:45 102/60 06/17/19 23:30 111/64 06/17/19 23:15 118/69 06/17/19 23:13 73 28 100 Mechanical Ventilator 40 76 29 40 06/17/19 23:00 107/59 06/17/19 23:00 26 Mechanical Ventilator 40 06/17/19 23:00 98.4 72 28 107/59 (75) 100 06/17/19 22:45 76 30 92/56 (68) 99 06/17/19 22:45 96/52 06/17/19 22:45 28 Mechanical Ventilator 40 06/17/19 22:30 85 28 136/64 (88) 95 06/17/19 22:00 104/55 06/17/19 22:00 25 Mechanical Ventilator 40 06/17/19 22:00 100.0 75 24 104/55 (71) 99 06/17/19 21:30 78 25 103/56 (72) 99 06/17/19 21:00 77 26 100/54 (69) 98 06/17/19 21:00 100/54 06/17/19 21:00 24 Mechanical Ventilator 40 06/17/19 20:30 80 26 110/56 (74) 98 06/17/19 20:00 Mechanical Ventilator 06/17/19 20:00 105/57 06/17/19 20:00 16 Mechanical Ventilator 40 06/17/19 20:00 40 06/17/19 20:00 84 06/17/19 20:00 98.8 84 16 105/57 (73) 99 06/17/19 19:56 80 27 99 Mechanical Ventilator 40 78 28 40 06/17/19 19:00 104/61 06/17/19 19:00 26 Mechanical Ventilator 40 06/17/19 19:00 80 23 104/57 (73) 99 06/17/19 18:30 78 23 105/57 (73) 99 06/17/19 18:00 75 26 99/53 (68) 99 06/17/19 18:00 108/61 06/17/19 18:00 26 Mechanical Ventilator 40 06/17/19 17:44 98.3 06/17/19 17:35 78 26 95/50 (65) 98 06/17/19 17:13 26 Mechanical Ventilator 40 06/17/19 17:00 83 27 109/57 (74) 98 06/17/19 17:00 114/68 06/17/19 17:00 26 Mechanical Ventilator 40 06/17/19 16:58 78 28 40 06/17/19 16:30 78 27 98/55 (69) 98 06/17/19 16:00 40 06/17/19 16:00 76 24 94/46 (62) 95 06/17/19 16:00 108/58 06/17/19 16:00 26 Mechanical Ventilator 40 06/17/19 16:00 Mechanical Ventilator 06/17/19 16:00 77 06/17/19 16:00 100.7 06/17/19 15:30 78 26 98/47 (64) 95 06/17/19 15:11 79 26 97 Mechanical Ventilator 40 79 26 40 06/17/19 15:00 79 26 121/58 (79) 95 06/17/19 15:00 123/63 06/17/19 15:00 26 Mechanical Ventilator 40 06/17/19 14:30 70 26 129/56 (80) 100 06/17/19 14:00 79 26 142/82 (102) 95 06/17/19 14:00 125/52 06/17/19 14:00 26 Mechanical Ventilator 40 06/17/19 13:30 82 24 131/59 (83) 99 06/17/19 13:29 77 26 40 06/17/19 13:15 76 25 122/56 (78) 97 06/17/19 13:00 77 26 125/56 (79) 97 06/17/19 13:00 122/56 06/17/19 13:00 26 Mechanical Ventilator 40 06/17/19 12:45 78 26 119/58 (78) 96 06/17/19 12:30 78 26 119/58 (78) 97 06/17/19 12:15 99.8 75 29 131/57 (81) 97 06/17/19 12:08 111/53 06/17/19 12:00 40 06/17/19 12:00 Mechanical Ventilator 06/17/19 12:00 78 06/17/19 12:00 111/53 06/17/19 12:00 40 Mechanical Ventilator 40 06/17/19 12:00 75 28 111/53 (72) 95 06/17/19 11:45 100.6 77 25 102/52 (69) 96 06/17/19 11:30 78 28 126/55 (78) 97 06/17/19 11:15 79 26 122/55 (77) 97 06/17/19 11:08 80 27 98 Mechanical Ventilator 40 79 26 40 06/17/19 11:00 78 26 124/57 (79) 97 06/17/19 11:00 122/55 06/17/19 11:00 26 Mechanical Ventilator 40 06/17/19 10:45 79 33 91/47 (62) 96 06/17/19 10:30 82 27 93/40 (57) 96 06/17/19 10:15 86 28 99/49 (66) 95 06/17/19 10:02 84 28 40 06/17/19 10:00 81 27 107/53 (71) 95 06/17/19 10:00 99/49 06/17/19 10:00 26 Mechanical Ventilator 40 06/17/19 09:45 84 15 105/49 (67) 92 06/17/19 09:30 82 29 106/55 (72) 97 06/17/19 09:15 81 31 128/57 (80) 97 06/17/19 09:00 126/59 06/17/19 09:00 26 Mechanical Ventilator 40 06/17/19 09:00 81 29 126/59 (81) 97 06/17/19 08:45 82 27 119/58 (78) 97 06/17/19 08:30 83 27 126/57 (80) 97 06/17/19 08:15 83 28 126/56 (79) 97 06/17/19 08:00 102.2 83 27 118/56 (76) 97 06/17/19 08:00 126/56 06/17/19 08:00 26 Mechanical Ventilator 40 06/17/19 08:00 Mechanical Ventilator 06/17/19 08:00 79 06/17/19 08:00 40 06/17/19 07:45 85 28 122/60 (80) 96 06/17/19 07:30 83 25 117/55 (75) 97 06/17/19 07:30 83 30 99 Mechanical Ventilator 40 85 27 40 06/17/19 07:15 102.8 83 26 127/57 (80) 97 06/17/19 07:00 123/55 06/17/19 07:00 16 Mechanical Ventilator 40 06/17/19 07:00 83 27 123/55 (77) 97 06/17/19 06:30 102.3 84 27 127/56 (79) 97 06/17/19 06:22 100.5 06/17/19 06:00 84 27 115/55 (75) 97 06/17/19 06:00 115/55 06/17/19 06:00 26 Mechanical Ventilator 40 06/17/19 05:30 100.5 87 28 117/53 (74) 98 06/17/19 05:00 85 28 124/61 (82) 97 06/17/19 05:00 117/53 06/17/19 04:54 26 Mechanical Ventilator 40 06/17/19 04:30 86 23 132/61 (84) 98 06/17/19 04:00 Mechanical Ventilator 06/17/19 04:00 83 30 122/60 (80) 97 06/17/19 04:00 40 06/17/19 04:00 78 06/17/19 04:00 122/60 06/17/19 03:30 82 27 116/56 (76) 96 06/17/19 03:23 78 31 100 Mechanical Ventilator 40 82 27 50 06/17/19 03:00 129/65 06/17/19 03:00 79 26 129/65 (86) 99 06/17/19 02:30 99.6 77 27 117/59 (78) 98 06/17/19 02:15 130/64 06/17/19 02:00 76 28 130/64 (86) 98 06/17/19 01:30 77 26 125/61 (82) 98 06/17/19 01:00 135/63 06/17/19 01:00 77 28 135/63 (87) 98 Critical Care - Subjective ROS Limited/Unobtainable: No Condition: critical IV Access: central FI02: 40 Vent Support Breath Rate: 26 Vent Support Mode: AC Vent Tidal Volume: 500 Sputum Amount: Scant PEEP: 8.0 PIP: 26 Tube Feeding Amount: 30 I&O: Intake and Output 06/17/19 06/18/19 19:00 07:00 Intake Total 1178.06 ml 598.73 ml Output Total 30 ml Balance 1148.06 ml 598.73 ml Free Water 120 ml IV Total 698.06 ml 358.73 ml Tube Feeding 440 ml 120 ml Other 40 ml Output Urine Total 30 ml # Bowel Movements 2 1 ET-Tube: 7.5 ET Position: 24 Arturo Mckeon MD June 18, 2019 00:47
[2019-06-18] MEDS: Albuterol 90mcg Inhaler 8gm INH SCH ×6 (03:44→23:02)
[2019-06-18] MEDS: Piperacillin/Tazobactam 2.25 GM in D5W 55 ML IVPB SCH ×3 (06:00→21:46)
[2019-06-18] MEDS: fentaNYL Citrate 2,500 MCG in NS 200 ML IV SCH ×2 (06:00→18:35)
[2019-06-18] MEDS: Renvela 800mg Pkt NG SCH ×3 (06:00→18:33)
[2019-06-18 06:23] LABS: HEMATOCRIT 26.6 % (42.0-52.0); HEMOGLOBIN 8.8 G/DL (14.2-18.0); MEAN CORPUSCULAR VOLUME 94 FL (80-99); PLATELET COUNT 186 K/UL (150-450); RED BLOOD COUNT 2.84 M/UL (4.70-6.10); RED CELL DISTRIBUTION WIDTH 20.2 % (11.6-14.8); WHITE BLOOD COUNT 21.7 K/UL (4.8-10.8)
[2019-06-18 07:34] LABS: ANION GAP 16 mmol/L (5-15); BLOOD UREA NITROGEN 71 mg/dL (7-18); CALCIUM 8.1 MG/DL (8.5-10.1); CARBON DIOXIDE 22 MMOL/L (21-32); CHLORIDE 87 MMOL/L (98-107); CREATININE 9.6 MG/DL (0.55-1.30); POTASSIUM 4.6 MMOL/L (3.5-5.1); SODIUM 124 MMOL/L (136-145)
[2019-06-18 07:39] LABS: ALANINE AMINOTRANSFERASE 20 U/L (12-78); ALBUMIN 1.7 G/DL (3.4-5.0); ALBUMIN/GLOBULIN RATIO 0.3 (1.0-2.7); ALKALINE PHOSPHATASE 78 U/L (46-116); ASPARTATE AMINO TRANSFERASE 25 U/L (15-37); BILIRUBIN,TOTAL 0.4 MG/DL (0.2-1.0)
[2019-06-18] MEDS: Pantoprazole Inj IVP SCH (08:48)
[2019-06-18] MEDS: Docusate 100mg/10ml Liq NG SCH ×3 (08:50→18:00)
[2019-06-18] MEDS: Enoxaparin 30mg Inj SUBQ SCH (08:50)
[2019-06-18] MEDS: Wixela 100/50 Inhaler - 60 dose INH SCH (08:50)
[2019-06-18] MEDS: Midodrine 10mg tab NG SCH ×3 (09:35→18:33)
[2019-06-18] MEDS: Vasopressin 100 UNITS in NS 95 ML IV SCH (11:00)
--- NOTE | 2019-06-18 11:32 | Nephrology Progress Note ---
Assessment/Plan Problem List: (1) CASSANDRA (acute kidney injury) (2) Anemia in chronic kidney disease (CKD) (3) HTN (hypertension) (4) COVID-19 Assessment Acute renal failure most likely superimposed on chronic kidney disease Suspected COVID-19 virus infection Possible Pneumonia, lymphopenia, elevated AST Cardiomegaly, possible CHF COPD Hypertension Anemia, most likely related to chronic kidney disease Plan June 17: Due for dialysis today Today's lab reviewed, low serum sodium noted, Emphasized on high sodium bath to dialysis nurse Discussed with SHANIQUE Yuen June 16: Dialyzed yesterday Remains intubated Labs reviewed, serum sodium 131 Plan to dialyze tomorrow June 17 with high sodium bath Discussed with SHANIQUE Yuen June 15: Due for dialysis today Labs reviewed Discussed with RN Transfuse 1 unit of packed RBCs today for low hemoglobin of 7.1 June 5: Blood pressure well maintained Receive dialysis June 13 next hemodialysis June 15June 4: Discussed with RN in ICU Patient did not receive proper dialysis yesterday due to dialysis catheter malfunction Catheter to be adjusted today and dialyzed to be resumed today Continue per consultants Positive for COVID 19 June 2: Patient now intubated on mechanical ventilation Discussed with SHANIQUE Yuen, today June 12 Patient received dialysis yesterday June 10 next hemodialysis June 12 Blood pressure better maintained Today's labs reviewed Continue per consultants Previously patient received dialysis last evening June 05, next dialysis June 07 which was incomplete due to patient's hypotension Will start on midodrine for blood pressure support. Meanwhile continue other pressors as needed Previously Patient is doing poorly, septic, white blood cells are rising, Hypotension somewhat improved We will keep n.p.o. , NG tube for medications, and change medication to IV as needed Patient remains full code Monitor vancomycin level Previously: Patient pulled out his femoral catheter yesterday June 03 which was reinserted by Dr. Mast Patient scheduled for dialysis again June 04, which again was not done due to dialysis nurse citing catheter malfunction Meanwhile continue management per ID, pulmonary , and psych. Meanwhile white blood cell count is rising. Patient blood pressure borderline low. Will check ABG Previously May 31 : I believe patient need dialysis treatment He however needs to competency assessment if can make decisions or not I will communicate with Dr. Mulligan Previously: Per pulmonary and ID advice Adjust blood pressure medication Renal diet Anemia work-up 2D echocardiogram refused Kidney ultrasound refused Jules catheter Urine studies Per orders Subjective ROS Limited/Unobtainable: Yes Objective Objective Last 24 Hour Vital Signs Date Time Temp Pulse Resp B/P (MAP) Pulse Ox O2 Delivery O2 Flow Rate FiO2 06/18/19 09:30 69 28 113/69 (84) 100 06/18/19 09:15 70 28 108/65 (79) 100 06/18/19 09:00 98.8 70 33 103/63 (76) 99 06/18/19 08:57 70 28 40 06/18/19 08:45 71 31 91/54 (66) 99 06/18/19 08:30 72 33 99/55 (70) 99 06/18/19 08:15 71 32 94/59 (71) 99 06/18/19 08:00 40 06/18/19 08:00 99.1 70 35 105/61 (76) 99 06/18/19 08:00 Mechanical Ventilator 06/18/19 07:45 69 31 109/63 (78) 100 06/18/19 07:30 70 31 106/65 (79) 100 06/18/19 07:26 72 31 100 Mechanical Ventilator 40 71 20 40 06/18/19 07:00 118/57 06/18/19 07:00 24 Mechanical Ventilator 40 06/18/19 07:00 74 31 117/67 (84) 100 06/18/19 06:50 98.6 06/18/19 06:30 77 31 109/60 (76) 100 06/18/19 06:00 91/54 06/18/19 06:00 26 Mechanical Ventilator 40 06/18/19 06:00 81 7 91/54 (66) 99 06/18/19 05:30 92 13 119/52 (74) 95 06/18/19 05:00 71 24 106/62 (77) 99 06/18/19 05:00 106/62 06/18/19 05:00 26 Mechanical Ventilator 40 06/18/19 04:30 98.6 72 24 105/57 (73) 99 06/18/19 04:00 Mechanical Ventilator 06/18/19 04:00 97/55 06/18/19 04:00 25 Mechanical Ventilator 40 06/18/19 04:00 40 06/18/19 04:00 74 26 97/55 (69) 97 06/18/19 04:00 72 06/18/19 03:44 75 29 100 Mechanical Ventilator 40 73 32 40 06/18/19 03:30 71 26 141/84 (103) 100 06/18/19 03:00 127/69 06/18/19 03:00 26 Mechanical Ventilator 40 06/18/19 03:00 71 27 127/69 (88) 100 06/18/19 02:30 72 28 128/68 (88) 100 06/18/19 02:00 107/63 06/18/19 02:00 26 Mechanical Ventilator 40 06/18/19 02:00 76 22 107/63 (78) 100 06/18/19 01:30 77 28 122/78 (93) 100 06/18/19 01:00 97.0 90 22 146/76 (99) 95 06/18/19 01:00 146/76 06/18/19 01:00 26 Mechanical Ventilator 40 06/18/19 00:30 81 26 145/79 (101) 99 06/18/19 00:00 Mechanical Ventilator 06/18/19 00:00 82 29 108/58 (75) 99 06/18/19 00:00 108/58 06/18/19 00:00 29 Mechanical Ventilator 40 06/17/19 23:45 102/60 06/17/19 23:30 74 26 111/64 (80) 100 06/17/19 23:30 111/64 06/17/19 23:15 118/69 06/17/19 23:13 73 28 100 Mechanical Ventilator 40 76 29 40 06/17/19 23:00 107/59 06/17/19 23:00 26 Mechanical Ventilator 40 06/17/19 23:00 98.4 72 28 107/59 (75) 100 06/17/19 22:45 76 30 92/56 (68) 99 06/17/19 22:45 96/52 06/17/19 22:45 28 Mechanical Ventilator 40 06/17/19 22:30 85 28 136/64 (88) 95 06/17/19 22:00 104/55 06/17/19 22:00 25 Mechanical Ventilator 40 06/17/19 22:00 100.0 75 24 104/55 (71) 99 06/17/19 21:30 78 25 103/56 (72) 99 06/17/19 21:00 77 26 100/54 (69) 98 06/17/19 21:00 100/54 06/17/19 21:00 24 Mechanical Ventilator 40 06/17/19 20:30 80 26 110/56 (74) 98 06/17/19 20:00 Mechanical Ventilator 06/17/19 20:00 105/57 06/17/19 20:00 16 Mechanical Ventilator 40 06/17/19 20:00 40 06/17/19 20:00 84 06/17/19 20:00 98.8 84 16 105/57 (73) 99 06/17/19 19:56 80 27 99 Mechanical Ventilator 40 78 28 40 06/17/19 19:00 104/61 06/17/19 19:00 26 Mechanical Ventilator 40 06/17/19 19:00 80 23 104/57 (73) 99 06/17/19 18:30 78 23 105/57 (73) 99 06/17/19 18:00 75 26 99/53 (68) 99 06/17/19 18:00 108/61 06/17/19 18:00 26 Mechanical Ventilator 40 06/17/19 17:44 98.3 06/17/19 17:35 78 26 95/50 (65) 98 06/17/19 17:13 26 Mechanical Ventilator 40 06/17/19 17:00 83 27 109/57 (74) 98 06/17/19 17:00 114/68 06/17/19 17:00 26 Mechanical Ventilator 40 06/17/19 16:58 78 28 40 06/17/19 16:30 78 27 98/55 (69) 98 06/17/19 16:00 40 06/17/19 16:00 76 24 94/46 (62) 95 06/17/19 16:00 108/58 06/17/19 16:00 26 Mechanical Ventilator 40 06/17/19 16:00 Mechanical Ventilator 06/17/19 16:00 77 06/17/19 16:00 100.7 06/17/19 15:30 78 26 98/47 (64) 95 06/17/19 15:11 79 26 97 Mechanical Ventilator 40 79 26 40 06/17/19 15:00 79 26 121/58 (79) 95 06/17/19 15:00 123/63 06/17/19 15:00 26 Mechanical Ventilator 40 06/17/19 14:30 70 26 129/56 (80) 100 06/17/19 14:00 79 26 142/82 (102) 95 06/17/19 14:00 125/52 06/17/19 14:00 26 Mechanical Ventilator 40 06/17/19 13:30 82 24 131/59 (83) 99 06/17/19 13:29 77 26 40 06/17/19 13:15 76 25 122/56 (78) 97 06/17/19 13:00 77 26 125/56 (79) 97 06/17/19 13:00 122/56 06/17/19 13:00 26 Mechanical Ventilator 40 06/17/19 12:45 78 26 119/58 (78) 96 06/17/19 12:30 78 26 119/58 (78) 97 06/17/19 12:15 99.8 75 29 131/57 (81) 97 06/17/19 12:08 111/53 06/17/19 12:00 40 06/17/19 12:00 Mechanical Ventilator 06/17/19 12:00 78 06/17/19 12:00 111/53 06/17/19 12:00 40 Mechanical Ventilator 40 06/17/19 12:00 75 28 111/53 (72) 95 06/17/19 11:45 100.6 77 25 102/52 (69) 96 Intake and Output 06/17/19 06/18/19 19:00 07:00 Intake Total 1178.06 ml 1093.791 ml Output Total 30 ml 10 ml Balance 1148.06 ml 1083.791 ml Free Water 120 ml IV Total 698.06 ml 673.791 ml Tube Feeding 440 ml 300 ml Other 40 ml Output Urine Total 30 ml 10 ml # Bowel Movements 2 3 Laboratory Tests 06/18/19 04:50: White Blood Count 21.7#H, Red Blood Count 2.84L, Hemoglobin 8.8L, Hematocrit 26.6L, Mean Corpuscular Volume 94, Mean Corpuscular Hemoglobin 31.1H, Mean Corpuscular Hemoglobin Concent 33.3, Red Cell Distribution Width 20.2H, Platelet Count 186#, Mean Platelet Volume 8.0, Neutrophils (%) (Auto) , Lymphocytes (%) (Auto) , Monocytes (%) (Auto) , Eosinophils (%) (Auto) , Basophils (%) (Auto) , Differential Total Cells Counted 100, Neutrophils % ( Manual) 90H, Lymphocytes % (Manual) 3L, Monocytes % (Manual) 7, Eosinophils % ( Manual) 0, Basophils % (Manual) 0, Band Neutrophils 0, Platelet Estimate Adequate, Platelet Morphology Normal, Hypochromasia 2+, Anisocytosis 2+, Spherocytes 1+, Sodium Level 124L, Potassium Level 4.6, Chloride Level 87L, Carbon Dioxide Level 22, Anion Gap 16H, Blood Urea Nitrogen 71H, Creatinine 9.6H , Estimat Glomerular Filtration Rate 5.5, Glucose Level 336#H, Calcium Level 8.1L, Total Bilirubin 0.4, Aspartate Amino Transf (AST/SGOT) 25, Alanine Aminotransferase (ALT/SGPT) 20, Alkaline Phosphatase 78, Total Protein 7.5, Albumin 1.7L, Globulin 5.8, Albumin/Globulin Ratio 0.3L, Random Vancomycin Level 21.9 Height (Feet): 6 Height (Inches): 1.00 Weight (Pounds): 215 General Appearance: no apparent distress EENT: other - Remains intubated on ventilator Cardiovascular: normal rate Respiratory/Chest: decreased breath sounds Abdomen: distended Objective No change Mic Cole MD June 18, 2019 11:32
--- NOTE | 2019-06-18 11:49 | Infectious Diseases Prog Note ---
Assessment/Plan Assessment/Plan IMPRESSION: 1. COVID19 pneumonia Positive: 05/27, 05/31 , 06/05, 06/09 2. MRSA carrier. 3. Chronic kidney disease , end-stage renal disease. 4. COPD. 5. Hypertension. 6. Anemia. 7. Hypothyroidism. 8. Hyperlipidemia. 9. Major depression. 10. Leukocytosis 11. Hypotension 12. Hepatitis C 13. Hyperuricemia 14. Diarrhea 15. septic shock 16. Leukocytosis RECOMMENDATIONS: Continue Vancomycin & Zosyn Repeat CXR shows slight improvement Poor prognosis Finished hydroxychloroquine. Will f/u COVID19 test Subjective ROS Limited/Unobtainable: Yes Constitutional: Denies: fever Cardiovascular: Reports: other - on Levophed 6 jermaine/kg/min Neurologic: Reports: confusion, other - on restrait Allergies: Coded Allergies: No Known Allergies (Unverified , 05/28/19) Objective Vital Signs Last 24 Hour Vital Signs Date Time Temp Pulse Resp B/P (MAP) Pulse Ox O2 Delivery O2 Flow Rate FiO2 06/18/19 09:30 69 28 113/69 (84) 100 06/18/19 09:15 70 28 108/65 (79) 100 06/18/19 09:00 98.8 70 33 103/63 (76) 99 06/18/19 08:57 70 28 40 06/18/19 08:45 71 31 91/54 (66) 99 06/18/19 08:30 72 33 99/55 (70) 99 06/18/19 08:15 71 32 94/59 (71) 99 06/18/19 08:00 40 06/18/19 08:00 99.1 70 35 105/61 (76) 99 06/18/19 08:00 Mechanical Ventilator 06/18/19 07:45 69 31 109/63 (78) 100 06/18/19 07:30 70 31 106/65 (79) 100 06/18/19 07:26 72 31 100 Mechanical Ventilator 40 71 20 40 06/18/19 07:00 118/57 06/18/19 07:00 24 Mechanical Ventilator 40 06/18/19 07:00 74 31 117/67 (84) 100 06/18/19 06:50 98.6 06/18/19 06:30 77 31 109/60 (76) 100 5/8/20 06:00 91/54 5/8/20 06:00 26 Mechanical Ventilator 40 06/18/19 06:00 81 7 91/54 (66) 99 06/18/19 05:30 92 13 119/52 (74) 95 06/18/19 05:00 71 24 106/62 (77) 99 06/18/19 05:00 106/62 06/18/19 05:00 26 Mechanical Ventilator 40 06/18/19 04:30 98.6 72 24 105/57 (73) 99 06/18/19 04:00 Mechanical Ventilator 06/18/19 04:00 97/55 06/18/19 04:00 25 Mechanical Ventilator 40 06/18/19 04:00 40 06/18/19 04:00 74 26 97/55 (69) 97 06/18/19 04:00 72 06/18/19 03:44 75 29 100 Mechanical Ventilator 40 73 32 40 06/18/19 03:30 71 26 141/84 (103) 100 06/18/19 03:00 127/69 06/18/19 03:00 26 Mechanical Ventilator 40 06/18/19 03:00 71 27 127/69 (88) 100 06/18/19 02:30 72 28 128/68 (88) 100 06/18/19 02:00 107/63 06/18/19 02:00 26 Mechanical Ventilator 40 06/18/19 02:00 76 22 107/63 (78) 100 06/18/19 01:30 77 28 122/78 (93) 100 06/18/19 01:00 97.0 90 22 146/76 (99) 95 06/18/19 01:00 146/76 06/18/19 01:00 26 Mechanical Ventilator 40 06/18/19 00:30 81 26 145/79 (101) 99 06/18/19 00:00 Mechanical Ventilator 06/18/19 00:00 82 29 108/58 (75) 99 06/18/19 00:00 108/58 06/18/19 00:00 29 Mechanical Ventilator 40 06/17/19 23:45 102/60 06/17/19 23:30 74 26 111/64 (80) 100 06/17/19 23:30 111/64 06/17/19 23:15 118/69 06/17/19 23:13 73 28 100 Mechanical Ventilator 40 76 29 40 06/17/19 23:00 107/59 06/17/19 23:00 26 Mechanical Ventilator 40 06/17/19 23:00 98.4 72 28 107/59 (75) 100 06/17/19 22:45 76 30 92/56 (68) 99 06/17/19 22:45 96/52 06/17/19 22:45 28 Mechanical Ventilator 40 06/17/19 22:30 85 28 136/64 (88) 95 06/17/19 22:00 104/55 06/17/19 22:00 25 Mechanical Ventilator 40 06/17/19 22:00 100.0 75 24 104/55 (71) 99 06/17/19 21:30 78 25 103/56 (72) 99 06/17/19 21:00 77 26 100/54 (69) 98 06/17/19 21:00 100/54 06/17/19 21:00 24 Mechanical Ventilator 40 06/17/19 20:30 80 26 110/56 (74) 98 06/17/19 20:00 Mechanical Ventilator 06/17/19 20:00 105/57 06/17/19 20:00 16 Mechanical Ventilator 40 06/17/19 20:00 40 06/17/19 20:00 84 06/17/19 20:00 98.8 84 16 105/57 (73) 99 06/17/19 19:56 80 27 99 Mechanical Ventilator 40 78 28 40 06/17/19 19:00 104/61 06/17/19 19:00 26 Mechanical Ventilator 40 06/17/19 19:00 80 23 104/57 (73) 99 06/17/19 18:30 78 23 105/57 (73) 99 06/17/19 18:00 75 26 99/53 (68) 99 06/17/19 18:00 108/61 06/17/19 18:00 26 Mechanical Ventilator 40 06/17/19 17:44 98.3 06/17/19 17:35 78 26 95/50 (65) 98 06/17/19 17:13 26 Mechanical Ventilator 40 06/17/19 17:00 83 27 109/57 (74) 98 06/17/19 17:00 114/68 06/17/19 17:00 26 Mechanical Ventilator 40 06/17/19 16:58 78 28 40 06/17/19 16:30 78 27 98/55 (69) 98 06/17/19 16:00 40 06/17/19 16:00 76 24 94/46 (62) 95 06/17/19 16:00 108/58 06/17/19 16:00 26 Mechanical Ventilator 40 06/17/19 16:00 Mechanical Ventilator 06/17/19 16:00 77 06/17/19 16:00 100.7 06/17/19 15:30 78 26 98/47 (64) 95 06/17/19 15:11 79 26 97 Mechanical Ventilator 40 79 26 40 06/17/19 15:00 79 26 121/58 (79) 95 06/17/19 15:00 123/63 06/17/19 15:00 26 Mechanical Ventilator 40 06/17/19 14:30 70 26 129/56 (80) 100 06/17/19 14:00 79 26 142/82 (102) 95 06/17/19 14:00 125/52 06/17/19 14:00 26 Mechanical Ventilator 40 06/17/19 13:30 82 24 131/59 (83) 99 06/17/19 13:29 77 26 40 06/17/19 13:15 76 25 122/56 (78) 97 06/17/19 13:00 77 26 125/56 (79) 97 06/17/19 13:00 122/56 06/17/19 13:00 26 Mechanical Ventilator 40 06/17/19 12:45 78 26 119/58 (78) 96 06/17/19 12:30 78 26 119/58 (78) 97 06/17/19 12:15 99.8 75 29 131/57 (81) 97 06/17/19 12:08 111/53 06/17/19 12:00 40 06/17/19 12:00 Mechanical Ventilator 06/17/19 12:00 78 06/17/19 12:00 111/53 06/17/19 12:00 40 Mechanical Ventilator 40 06/17/19 12:00 75 28 111/53 (72) 95 Height (Feet): 6 Height (Inches): 1.00 Weight (Pounds): 215 HEENT: mucous membranes moist Respiratory/Chest: other - on Ventilator, FIO2=40% Cardiovascular: normal rate, other - left subclavian line Abdomen: soft, non tender, other - NG tube Neurologic/Psychiatric: other - sedated Laboratory Tests Test 06/18/19 04:50 White Blood Count 21.7 K/UL (4.8-10.8) #H Red Blood Count 2.84 M/UL (4.70-6.10) L Hemoglobin 8.8 G/DL (14.2-18.0) L Hematocrit 26.6 % (42.0-52.0) L Mean Corpuscular Volume 94 FL (80-99) Mean Corpuscular Hemoglobin 31.1 PG (27.0-31.0) H Mean Corpuscular Hemoglobin Concent 33.3 G/DL (32.0-36.0) Red Cell Distribution Width 20.2 % (11.6-14.8) H Platelet Count 186 K/UL (150-450) # Mean Platelet Volume 8.0 FL (6.5-10.1) Neutrophils (%) (Auto) % (45.0-75.0) Lymphocytes (%) (Auto) % (20.0-45.0) Monocytes (%) (Auto) % (1.0-10.0) Eosinophils (%) (Auto) % (0.0-3.0) Basophils (%) (Auto) % (0.0-2.0) Differential Total Cells Counted 100 Neutrophils % (Manual) 90 % (45-75) H Lymphocytes % (Manual) 3 % (20-45) L Monocytes % (Manual) 7 % (1-10) Eosinophils % (Manual) 0 % (0-3) Basophils % (Manual) 0 % (0-2) Band Neutrophils 0 % (0-8) Platelet Estimate Adequate Platelet Morphology Normal Hypochromasia 2+ Anisocytosis 2+ Spherocytes 1+ Sodium Level 124 MMOL/L (136-145) L Potassium Level 4.6 MMOL/L (3.5-5.1) Chloride Level 87 MMOL/L (98-107) L Carbon Dioxide Level 22 MMOL/L (21-32) Anion Gap 16 mmol/L (5-15) H Blood Urea Nitrogen 71 mg/dL (7-18) H Creatinine 9.6 MG/DL (0.55-1.30) H Estimat Glomerular Filtration Rate 5.5 mL/min (>60) Glucose Level 336 MG/DL (74-106) #H Calcium Level 8.1 MG/DL (8.5-10.1) L Total Bilirubin 0.4 MG/DL (0.2-1.0) Aspartate Amino Transf (AST/SGOT) 25 U/L (15-37) Alanine Aminotransferase (ALT/SGPT) 20 U/L (12-78) Alkaline Phosphatase 78 U/L (46-116) Total Protein 7.5 G/DL (6.4-8.2) Albumin 1.7 G/DL (3.4-5.0) L Globulin 5.8 g/dL Albumin/Globulin Ratio 0.3 (1.0-2.7) L Random Vancomycin Level 21.9 ug/mL Current Medications Medications (Trade) Dose Ordered Sig/Anthony Route PRN Reason Start Time Stop Time Status Last Admin Dose Admin Acetaminophen (Tylenol) 650 mg Q4H PRN NG Temp >100.5 06/13/19 11:00 07/13/19 10:59 06/17/19 17:14 Albuterol Sulfate (Proventil MDI) 2 puff Q4HRT INH 06/06/19 23:00 08/30/19 18:59 06/18/19 10:58 Allopurinol (allopurinoL) 300 mg DAILY NG 06/08/19 09:30 07/08/19 09:29 06/18/19 08:48 Chlorhexidine Gluconate (Michelle-Hex 2%) 1 applic DAILY@2000 TOPIC 06/07/19 20:00 09/05/19 19:59 06/17/19 20:32 Docusate Sodium (Colace) 100 mg THREE TIMES A DAY NG 06/07/19 13:00 07/07/19 12:59 06/17/19 17:14 Dopamine HCl/ Dextrose 250 ml @ 0 mls/hr Q24H PRN IV For hypotension 06/13/19 08:15 09/11/19 08:14 Enoxaparin Sodium (Lovenox) 30 mg DAILY SUBQ 06/07/19 09:00 08/27/19 08:59 06/18/19 08:50 Epoetin Aftab (Epoetin Aftab(ESRD on dialysis)) 10,000 unit FRI-WED-FRI SUBQ 06/07/19 21:00 08/31/19 20:59 06/16/19 20:52 Fentanyl Citrate 2500 mcg/Sodium Chloride 250 ml @ 0 mls/hr Q24H IV 06/13/19 07:00 06/20/19 06:59 06/18/19 06:00 Hydralazine HCl (Apresoline) 10 mg Q4H PRN IV Blood pressure over 160 systol 06/07/19 10:15 09/05/19 10:14 Midodrine (Pro-Amatine) 10 mg THREE TIMES A DAY NG 06/09/19 13:00 09/07/19 12:59 06/18/19 09:35 Norepinephrine Bitartrate 16 mg/ Dextrose 566 ml @ 0 mls/hr Q24H IV 06/13/19 09:45 07/13/19 09:44 06/17/19 12:08 Pantoprazole (Protonix) 40 mg Q12HR IVP 06/07/19 21:00 07/07/19 08:59 06/18/19 08:48 Piperacillin Sod/ Tazobactam Sod 2.25 gm/Dextrose 55 ml @ 110 mls/hr Q8HR IVPB 06/13/19 14:00 06/23/19 13:59 06/18/19 06:00 Salmeterol Xinafoate/ Fluticasone (Advair 100/50 Diskus) 1 puffs BID INH 06/07/19 09:00 08/27/19 08:59 06/11/19 09:14 Sevelamer Carbonate (Renvela) 1,600 mg Q6HR NG 06/14/19 12:00 09/05/19 12:59 06/18/19 06:00 Vancomycin HCl (Vanco rx to dose) 1 ea DAILY PRN MISC Per rx protocol 06/13/19 11:45 07/13/19 11:44 Vasopressin 100 units/Sodium Chloride 100 ml @ 0 mls/hr Q24H IV 06/12/19 11:00 07/12/19 10:59 06/15/19 11:08 Ted Leyva MD June 18, 2019 11:49
[2019-06-18] MEDS ORDERED: Metoclopramide 10mg/2ml Inj IVP PRN (12:00)
--- NOTE | 2019-06-18 12:06 | Hematology/Onc Progress Note ---
Assessment/Plan Assessment/Plan Assessment and Recs: # Anemia of chronic disease, likely related ot underlying kidney disease --> hgb trend 9-->8-->7.3-->7.9-->6.8->9.5-->10->8.3-->7.7-->7.1-->8.9->8.8 --> transfuse as needed, hgb goal >7 --> no evidence of hemolysis --> peripheral smear has been reviewed --> epogen started three x a week ==>> transfuse w 2 units 06/08, 06/15, # Leukocytosis likely related to suspected COVID-19 virus infection --> completed plaquenil --> trend smear as needed --> initially 4-->11-->14.5-->21-->26-->21->24--.28-->23-->19-->16.2-->21 --> pulm is aware --> on abx cefepime/vanc->zosyn/vanc --> pressors as needed # Thrombocytopenia/Lymphopenia --> likely related to covid19 --> plt 129k-->186k # Respiratory failure --> s/p vent # Possible Pneumonia --> abx given --> on zosyn and vanc # Cardiomegaly # Transaminitis with Elevated AST # COPD # Chronic Kidney Disease --> per renal hd # Hypertension # Dvt ppx lovenox Appreciate consultation and ernesto Rn Subjective Allergies: Coded Allergies: No Known Allergies (Unverified , 05/28/19) All Systems: reviewed and negative except above Subjective 06/01 extremely agitated, not allowing labs draws, no night sweats, cbc ordered 06/02 confused, restraints, on abx and plaquenil, hgb 7.9, nrb 15 L 06/03 is with nonrebreather, but not compliant, remains confused 06/05 no bleeding, labs noted, no major bleeding, otherwise comfortable 06/06 labs reviewed, no bleeding, meds noted, no night sweats, on levo and nonrebreather 06/07 labs noted, no bleeding, meds reviewed, no bleeding, wbc higher 06/08 to get 2 units prbc, no night sweats, meds reviewed 06/09 is on cefepime and vanc, labs noted, ernesto Rn, no bleeding 06/10 no major changes, labs reviewed, wbc 28k, on abx, cefepime 06/12 remains in icu, labs noted, no night sweats or bleeding 06/13 sluggish pupils, remains agitated, per psych, no bleding, on vent, wbc sitll high 06/14 still confused, remains on vent, with ng, running nepro, on pressors 06/15 icu, febrile, non verbal, hgb 7.1, blood pending, completed plaq 06/16 remains in the icu, nonverbal, plan for hd tomorrow, ernesto rn 06/17 in icu, on pressor, nonverbal, on abx, no bleeding Objective Objective Current Medications Medications (Trade) Dose Ordered Sig/Anthony Route PRN Reason Start Time Stop Time Status Last Admin Dose Admin Acetaminophen (Tylenol) 650 mg Q4H PRN NG Temp >100.5 06/13/19 11:00 07/13/19 10:59 06/17/19 17:14 Albuterol Sulfate (Proventil MDI) 2 puff Q4HRT INH 06/06/19 23:00 08/30/19 18:59 06/18/19 10:58 Allopurinol (allopurinoL) 300 mg DAILY NG 06/08/19 09:30 07/08/19 09:29 06/18/19 08:48 Chlorhexidine Gluconate (Michelle-Hex 2%) 1 applic DAILY@2000 TOPIC 06/07/19 20:00 09/05/19 19:59 06/17/19 20:32 Docusate Sodium (Colace) 100 mg THREE TIMES A DAY NG 06/07/19 13:00 07/07/19 12:59 06/17/19 17:14 Dopamine HCl/ Dextrose 250 ml @ 0 mls/hr Q24H PRN IV For hypotension 06/13/19 08:15 09/11/19 08:14 Enoxaparin Sodium (Lovenox) 30 mg DAILY SUBQ 06/07/19 09:00 08/27/19 08:59 06/18/19 08:50 Epoetin Aftab (Epoetin Aftab(ESRD on dialysis)) 10,000 unit FRI-FRI-FRI SUBQ 06/07/19 21:00 08/31/19 20:59 06/16/19 20:52 Fentanyl Citrate 2500 mcg/Sodium Chloride 250 ml @ 0 mls/hr Q24H IV 06/13/19 07:00 06/20/19 06:59 06/18/19 06:00 Hydralazine HCl (Apresoline) 10 mg Q4H PRN IV Blood pressure over 160 systol 06/07/19 10:15 09/05/19 10:14 Metoclopramide HCl (Reglan) 5 mg Q8H PRN IVP Nausea & Vomiting 06/18/19 12:00 07/18/19 11:59 UNV Midodrine (Pro-Amatine) 10 mg THREE TIMES A DAY NG 06/09/19 13:00 09/07/19 12:59 06/18/19 09:35 Norepinephrine Bitartrate 16 mg/ Dextrose 566 ml @ 0 mls/hr Q24H IV 06/13/19 09:45 07/13/19 09:44 06/17/19 12:08 Pantoprazole (Protonix) 40 mg DAILY IVP 06/19/19 09:00 07/19/19 08:59 UNV Piperacillin Sod/ Tazobactam Sod 2.25 gm/Dextrose 55 ml @ 110 mls/hr Q8HR IVPB 06/13/19 14:00 06/23/19 13:59 06/18/19 06:00 Salmeterol Xinafoate/ Fluticasone (Advair 100/50 Diskus) 1 puffs BID INH 06/07/19 09:00 08/27/19 08:59 06/11/19 09:14 Sevelamer Carbonate (Renvela) 1,600 mg Q6HR NG 06/14/19 12:00 09/05/19 12:59 06/18/19 06:00 Vancomycin HCl (Vanco rx to dose) 1 ea DAILY PRN MISC Per rx protocol 06/13/19 11:45 07/13/19 11:44 Vasopressin 100 units/Sodium Chloride 100 ml @ 0 mls/hr Q24H IV 06/12/19 11:00 07/12/19 10:59 06/15/19 11:08 Last 24 Hour Vital Signs Date Time Temp Pulse Resp B/P (MAP) Pulse Ox O2 Delivery O2 Flow Rate FiO2 06/18/19 11:45 75 29 109/76 (87) 100 06/18/19 11:30 74 26 122/66 (84) 100 06/18/19 11:15 73 23 112/67 (82) 100 06/18/19 11:00 82 24 139/82 (101) 100 06/18/19 10:45 68 27 119/71 (87) 100 06/18/19 10:30 67 24 103/66 (78) 100 06/18/19 10:15 70 20 98/63 (75) 100 06/18/19 10:00 68 26 94/57 (69) 100 06/18/19 09:58 68 26 89/58 (68) 100 06/18/19 09:50 70 26 84/52 (63) 99 06/18/19 09:45 71 26 87/50 (62) 99 06/18/19 09:30 69 28 113/69 (84) 100 06/18/19 09:15 70 28 108/65 (79) 100 06/18/19 09:00 98.8 70 33 103/63 (76) 99 06/18/19 08:57 70 28 40 06/18/19 08:45 71 31 91/54 (66) 99 06/18/19 08:30 72 33 99/55 (70) 99 06/18/19 08:15 71 32 94/59 (71) 99 06/18/19 08:00 70 06/18/19 08:00 40 06/18/19 08:00 99.1 70 35 105/61 (76) 99 06/18/19 08:00 Mechanical Ventilator 06/18/19 07:45 69 31 109/63 (78) 100 06/18/19 07:30 70 31 106/65 (79) 100 06/18/19 07:26 72 31 100 Mechanical Ventilator 40 71 20 40 06/18/19 07:00 118/57 06/18/19 07:00 24 Mechanical Ventilator 40 06/18/19 07:00 74 31 117/67 (84) 100 06/18/19 06:50 98.6 06/18/19 06:30 77 31 109/60 (76) 100 06/18/19 06:00 91/54 06/18/19 06:00 26 Mechanical Ventilator 40 06/18/19 06:00 81 7 91/54 (66) 99 06/18/19 05:30 92 13 119/52 (74) 95 06/18/19 05:00 71 24 106/62 (77) 99 06/18/19 05:00 106/62 06/18/19 05:00 26 Mechanical Ventilator 40 06/18/19 04:30 98.6 72 24 105/57 (73) 99 06/18/19 04:00 Mechanical Ventilator 06/18/19 04:00 97/55 06/18/19 04:00 25 Mechanical Ventilator 40 06/18/19 04:00 40 06/18/19 04:00 74 26 97/55 (69) 97 06/18/19 04:00 72 06/18/19 03:44 75 29 100 Mechanical Ventilator 40 73 32 40 06/18/19 03:30 71 26 141/84 (103) 100 06/18/19 03:00 127/69 06/18/19 03:00 26 Mechanical Ventilator 40 06/18/19 03:00 71 27 127/69 (88) 100 06/18/19 02:30 72 28 128/68 (88) 100 06/18/19 02:00 107/63 06/18/19 02:00 26 Mechanical Ventilator 40 06/18/19 02:00 76 22 107/63 (78) 100 06/18/19 01:30 77 28 122/78 (93) 100 06/18/19 01:00 97.0 90 22 146/76 (99) 95 06/18/19 01:00 146/76 06/18/19 01:00 26 Mechanical Ventilator 40 06/18/19 00:30 81 26 145/79 (101) 99 06/18/19 00:00 Mechanical Ventilator 06/18/19 00:00 82 29 108/58 (75) 99 06/18/19 00:00 108/58 06/18/19 00:00 29 Mechanical Ventilator 40 06/17/19 23:45 102/60 06/17/19 23:30 74 26 111/64 (80) 100 06/17/19 23:30 111/64 06/17/19 23:15 118/69 06/17/19 23:13 73 28 100 Mechanical Ventilator 40 76 29 40 06/17/19 23:00 107/59 06/17/19 23:00 26 Mechanical Ventilator 40 06/17/19 23:00 98.4 72 28 107/59 (75) 100 06/17/19 22:45 76 30 92/56 (68) 99 06/17/19 22:45 96/52 06/17/19 22:45 28 Mechanical Ventilator 40 06/17/19 22:30 85 28 136/64 (88) 95 06/17/19 22:00 104/55 06/17/19 22:00 25 Mechanical Ventilator 40 06/17/19 22:00 100.0 75 24 104/55 (71) 99 06/17/19 21:30 78 25 103/56 (72) 99 06/17/19 21:00 77 26 100/54 (69) 98 06/17/19 21:00 100/54 06/17/19 21:00 24 Mechanical Ventilator 40 06/17/19 20:30 80 26 110/56 (74) 98 06/17/19 20:00 Mechanical Ventilator 06/17/19 20:00 105/57 06/17/19 20:00 16 Mechanical Ventilator 40 06/17/19 20:00 40 06/17/19 20:00 84 06/17/19 20:00 98.8 84 16 105/57 (73) 99 06/17/19 19:56 80 27 99 Mechanical Ventilator 40 78 28 40 06/17/19 19:00 104/61 06/17/19 19:00 26 Mechanical Ventilator 40 06/17/19 19:00 80 23 104/57 (73) 99 06/17/19 18:30 78 23 105/57 (73) 99 06/17/19 18:00 75 26 99/53 (68) 99 06/17/19 18:00 108/61 06/17/19 18:00 26 Mechanical Ventilator 40 06/17/19 17:44 98.3 06/17/19 17:35 78 26 95/50 (65) 98 06/17/19 17:13 26 Mechanical Ventilator 40 06/17/19 17:00 83 27 109/57 (74) 98 06/17/19 17:00 114/68 06/17/19 17:00 26 Mechanical Ventilator 40 06/17/19 16:58 78 28 40 06/17/19 16:30 78 27 98/55 (69) 98 06/17/19 16:00 40 06/17/19 16:00 76 24 94/46 (62) 95 06/17/19 16:00 108/58 06/17/19 16:00 26 Mechanical Ventilator 40 06/17/19 16:00 Mechanical Ventilator 06/17/19 16:00 77 06/17/19 16:00 100.7 06/17/19 15:30 78 26 98/47 (64) 95 06/17/19 15:11 79 26 97 Mechanical Ventilator 40 79 26 40 06/17/19 15:00 79 26 121/58 (79) 95 06/17/19 15:00 123/63 06/17/19 15:00 26 Mechanical Ventilator 40 06/17/19 14:30 70 26 129/56 (80) 100 06/17/19 14:00 79 26 142/82 (102) 95 06/17/19 14:00 125/52 06/17/19 14:00 26 Mechanical Ventilator 40 06/17/19 13:30 82 24 131/59 (83) 99 06/17/19 13:29 77 26 40 06/17/19 13:15 76 25 122/56 (78) 97 06/17/19 13:00 77 26 125/56 (79) 97 06/17/19 13:00 122/56 06/17/19 13:00 26 Mechanical Ventilator 40 06/17/19 12:45 78 26 119/58 (78) 96 06/17/19 12:30 78 26 119/58 (78) 97 06/17/19 12:15 99.8 75 29 131/57 (81) 97 06/17/19 12:08 111/53 06/17/19 12:00 40 06/17/19 12:00 Mechanical Ventilator 06/17/19 12:00 78 06/17/19 12:00 111/53 06/17/19 12:00 40 Mechanical Ventilator 40 06/17/19 12:00 75 28 111/53 (72) 95 06/17/19 11:45 100.6 77 25 102/52 (69) 96 06/17/19 11:30 78 28 126/55 (78) 97 06/17/19 11:15 79 26 122/55 (77) 97 06/17/19 11:08 80 27 98 Mechanical Ventilator 40 79 26 40 06/17/19 11:00 78 26 124/57 (79) 97 06/17/19 11:00 122/55 06/17/19 11:00 26 Mechanical Ventilator 40 06/17/19 10:45 79 33 91/47 (62) 96 06/17/19 10:30 82 27 93/40 (57) 96 06/17/19 10:15 86 28 99/49 (66) 95 06/17/19 10:02 84 28 40 06/17/19 10:00 81 27 107/53 (71) 95 06/17/19 10:00 99/49 06/17/19 10:00 26 Mechanical Ventilator 40 06/17/19 09:45 84 15 105/49 (67) 92 06/17/19 09:30 82 29 106/55 (72) 97 06/17/19 09:15 81 31 128/57 (80) 97 06/17/19 09:00 126/59 06/17/19 09:00 26 Mechanical Ventilator 40 06/17/19 09:00 81 29 126/59 (81) 97 06/17/19 08:45 82 27 119/58 (78) 97 06/17/19 08:30 83 27 126/57 (80) 97 06/17/19 08:15 83 28 126/56 (79) 97 06/17/19 08:00 102.2 83 27 118/56 (76) 97 06/17/19 08:00 126/56 06/17/19 08:00 26 Mechanical Ventilator 40 06/17/19 08:00 Mechanical Ventilator 06/17/19 08:00 79 06/17/19 08:00 40 06/17/19 07:45 85 28 122/60 (80) 96 06/17/19 07:30 83 25 117/55 (75) 97 06/17/19 07:30 83 30 99 Mechanical Ventilator 40 85 27 40 06/17/19 07:15 102.8 83 26 127/57 (80) 97 06/17/19 07:00 123/55 06/17/19 07:00 16 Mechanical Ventilator 40 06/17/19 07:00 83 27 123/55 (77) 97 06/17/19 06:30 102.3 84 27 127/56 (79) 97 06/17/19 06:00 84 27 115/55 (75) 97 06/17/19 06:00 115/55 06/17/19 06:00 26 Mechanical Ventilator 40 06/17/19 05:30 100.5 87 28 117/53 (74) 98 06/17/19 05:00 85 28 124/61 (82) 97 06/17/19 05:00 117/53 06/17/19 04:54 26 Mechanical Ventilator 40 06/17/19 04:30 86 23 132/61 (84) 98 06/17/19 04:00 Mechanical Ventilator 06/17/19 04:00 83 30 122/60 (80) 97 06/17/19 04:00 40 06/17/19 04:00 78 06/17/19 04:00 122/60 06/17/19 03:30 82 27 116/56 (76) 96 06/17/19 03:23 78 31 100 Mechanical Ventilator 40 82 27 50 06/17/19 03:00 129/65 06/17/19 03:00 79 26 129/65 (86) 99 06/17/19 02:30 99.6 77 27 117/59 (78) 98 06/17/19 02:15 130/64 06/17/19 02:00 76 28 130/64 (86) 98 06/17/19 01:30 77 26 125/61 (82) 98 06/17/19 01:00 135/63 06/17/19 01:00 77 28 135/63 (87) 98 06/17/19 00:30 77 27 137/61 (86) 98 06/17/19 00:00 Mechanical Ventilator 06/17/19 00:00 142/65 06/17/19 00:00 99.0 76 28 142/65 (90) 98 06/16/19 23:30 82 26 122/59 (80) 97 06/16/19 23:27 86 28 100 Mechanical Ventilator 40 82 27 50 06/16/19 23:00 84 25 118/65 (82) 100 06/16/19 23:00 118/65 06/16/19 22:30 86 23 124/62 (82) 98 06/16/19 22:00 115/64 06/16/19 22:00 26 Mechanical Ventilator 40 06/16/19 22:00 85 25 115/64 (81) 98 06/16/19 21:30 87 24 124/64 (84) 97 5/6/20 21:00 82 26 131/70 (90) 97 5/6/20 21:00 131/70 5/6/20 21:00 30 Mechanical Ventilator 40 20 20:45 128/66 5/6/20 20:30 133/70 5/6/20 20:30 99.5 83 25 133/65 (87) 100 56/20 20:15 138/68 5/6/20 20:00 Mechanical Ventilator 20 20:00 80 36 145/69 (94) 95 56/20 20:00 145/69 5/6/20 20:00 26 Mechanical Ventilator 40 20 20:00 40 5/620 20:00 80 5/20 19:51 56/40 520 19:36 79 28 100 Mechanical Ventilator 40 82 27 50 /20 19:30 83 25 147/79 (101) 100 20 19:00 77 26 136/71 (92) 100 20 19:00 136/71 20 19:00 26 Mechanical Ventilator 40 20 18:30 83 25 113/64 (80) 99 5//20 18:00 87 29 150/64 (92) 100 5//20 18:00 113/62 520 18:00 26 Mechanical Ventilator 40 20 17:30 79 30 152/74 (100) 100 5/6/20 17:00 81 30 141/74 (96) 100 20 17:00 122/65 20 17:00 24 Mechanical Ventilator 40 20 16:40 24 40 5/6/20 16:30 81 28 122/65 (84) 100 5/6/20 16:00 40 5/620 16:00 98.2 82 26 100/65 (77) 100 56/20 16:00 86 5/620 16:00 Mechanical Ventilator 20 16:00 100/65 5/620 16:00 26 Mechanical Ventilator 40 /20 15:30 79 26 126/73 (90) 100 520 15:30 81 26 100 Mechanical Ventilator 40 82 27 50 5/6/20 15:00 113/65 06/16/19 15:00 25 Mechanical Ventilator 40 06/16/19 15:00 78 24 113/65 (81) 100 06/16/19 14:00 93/53 06/16/19 14:00 24 Mechanical Ventilator 40 06/16/19 14:00 74 26 93/53 (66) 100 06/16/19 13:00 129/62 06/16/19 13:00 24 Mechanical Ventilator 40 06/16/19 13:00 73 26 129/62 (84) 98 06/16/19 12:30 76 26 76/41 (53) 98 Intake and Output 06/17/19 06/18/19 19:00 07:00 Intake Total 1178.06 ml 1093.791 ml Output Total 30 ml 10 ml Balance 1148.06 ml 1083.791 ml Free Water 120 ml IV Total 698.06 ml 673.791 ml Tube Feeding 440 ml 300 ml Other 40 ml Output Urine Total 30 ml 10 ml # Bowel Movements 2 3 Labs Test 06/16/19 04:00 06/17/19 04:00 06/18/19 04:50 White Blood Count 16.2 K/UL (4.8-10.8) 14.4 K/UL (4.8-10.8) 21.7 K/UL (4.8-10.8) Red Blood Count 2.31 M/UL (4.70-6.10) 2.91 M/UL (4.70-6.10) 2.84 M/UL (4.70-6.10) Hemoglobin 7.1 G/DL (14.2-18.0) 8.9 G/DL (14.2-18.0) 8.8 G/DL (14.2-18.0) Hematocrit 21.3 % (42.0-52.0) 26.8 % (42.0-52.0) 26.6 % (42.0-52.0) Mean Corpuscular Volume 93 FL (80-99) 92 FL (80-99) 94 FL (80-99) Mean Corpuscular Hemoglobin 31.0 PG (27.0-31.0) 30.5 PG (27.0-31.0) 31.1 PG (27.0-31.0) Mean Corpuscular Hemoglobin Concent 33.5 G/DL (32.0-36.0) 33.2 G/DL (32.0-36.0) 33.3 G/DL (32.0-36.0) Red Cell Distribution Width 19.9 % (11.6-14.8) 18.4 % (11.6-14.8) 20.2 % (11.6-14.8) Platelet Count 110 K/UL (150-450) 121 K/UL (150-450) 186 K/UL (150-450) Mean Platelet Volume 8.3 FL (6.5-10.1) 7.7 FL (6.5-10.1) 8.0 FL (6.5-10.1) Neutrophils (%) (Auto) % (45.0-75.0) % (45.0-75.0) % (45.0-75.0) Lymphocytes (%) (Auto) % (20.0-45.0) % (20.0-45.0) % (20.0-45.0) Monocytes (%) (Auto) % (1.0-10.0) % (1.0-10.0) % (1.0-10.0) Eosinophils (%) (Auto) % (0.0-3.0) % (0.0-3.0) % (0.0-3.0) Basophils (%) (Auto) % (0.0-2.0) % (0.0-2.0) % (0.0-2.0) Differential Total Cells Counted 100 100 100 Neutrophils % (Manual) 83 % (45-75) 85 % (45-75) 90 % (45-75) Lymphocytes % (Manual) 6 % (20-45) 9 % (20-45) 3 % (20-45) Monocytes % (Manual) 11 % (1-10) 4 % (1-10) 7 % (1-10) Eosinophils % (Manual) 0 % (0-3) 1 % (0-3) 0 % (0-3) Basophils % (Manual) 0 % (0-2) 0 % (0-2) 0 % (0-2) Band Neutrophils 0 % (0-8) 0 % (0-8) 0 % (0-8) Platelet Estimate Decreased Decreased Adequate Platelet Morphology Normal Normal Normal Polychromasia 2+ Hypochromasia 1+ 2+ 2+ Anisocytosis 2+ 2+ 2+ Sodium Level 130 MMOL/L (136-145) 131 MMOL/L (136-145) 124 MMOL/L (136-145) Potassium Level 4.3 MMOL/L (3.5-5.1) 4.2 MMOL/L (3.5-5.1) 4.6 MMOL/L (3.5-5.1) Chloride Level 90 MMOL/L (98-107) 91 MMOL/L (98-107) 87 MMOL/L (98-107) Carbon Dioxide Level 24 MMOL/L (21-32) 25 MMOL/L (21-32) 22 MMOL/L (21-32) Anion Gap 16 mmol/L (5-15) 15 mmol/L (5-15) 16 mmol/L (5-15) Blood Urea Nitrogen 71 mg/dL (7-18) 55 mg/dL (7-18) 71 mg/dL (7-18) Creatinine 9.9 MG/DL (0.55-1.30) 8.2 MG/DL (0.55-1.30) 9.6 MG/DL (0.55-1.30) Estimat Glomerular Filtration Rate 5.3 mL/min (>60) 6.6 mL/min (>60) 5.5 mL/min (>60) Glucose Level 225 MG/DL (74-106) 200 MG/DL (74-106) 336 MG/DL (74-106) Uric Acid 6.6 MG/DL (2.6-7.2) Calcium Level 8.3 MG/DL (8.5-10.1) 7.9 MG/DL (8.5-10.1) 8.1 MG/DL (8.5-10.1) Phosphorus Level 6.5 MG/DL (2.5-4.9) 5.7 MG/DL (2.5-4.9) Magnesium Level 2.1 MG/DL (1.8-2.4) 2.1 MG/DL (1.8-2.4) Total Bilirubin 0.4 MG/DL (0.2-1.0) 0.5 MG/DL (0.2-1.0) 0.4 MG/DL (0.2-1.0) Aspartate Amino Transf (AST/SGOT) 46 U/L (15-37) 32 U/L (15-37) 25 U/L (15-37) Alanine Aminotransferase (ALT/SGPT) 29 U/L (12-78) 21 U/L (12-78) 20 U/L (12-78) Alkaline Phosphatase 76 U/L (46-116) 76 U/L (46-116) 78 U/L (46-116) C-Reactive Protein, Quantitative 24.1 mg/dL (0.00-0.90) 4.5 mg/dL (0.00-0.90) Pro-B-Type Natriuretic Peptide 59808 pg/mL (0-125) > 06083 pg/mL (0-125) Total Protein 7.3 G/DL (6.4-8.2) 7.7 G/DL (6.4-8.2) 7.5 G/DL (6.4-8.2) Albumin 2.0 G/DL (3.4-5.0) 1.9 G/DL (3.4-5.0) 1.7 G/DL (3.4-5.0) Globulin 5.3 g/dL 5.8 g/dL 5.8 g/dL Albumin/Globulin Ratio 0.4 (1.0-2.7) 0.3 (1.0-2.7) 0.3 (1.0-2.7) Metamyelocytes % 1 % (0-0) Spherocytes 1+ 1+ Lactate Dehydrogenase 356 U/L (81-234) Random Vancomycin Level 21.9 ug/mL Height (Feet): 6 Height (Inches): 1.00 Weight (Pounds): 215 Objective Sp02 EP Interpretation: reviewed, normal General: confused, sedated Heent: bilateral eye normal inspection, bilateral eye PERRL ++Ng Respiratory: normal breath sounds, no respiratory distress,intubated+++ Cardiovascular: regular rate, rhythm, no edema Gastrointestinal: normal inspection, soft, non-distended Rectal: deferred Musculoskeletal: normal range of motion, non-tender Neurologic: alert, motor strength/tone normal, sensory intact, responsive, speech normal Skin: Decubitus/Ulcer - See RN skin exam. : jamaal+ Greg aCbral MD June 18, 2019 12:06
[2019-06-18] MEDS: Norepinephrine Bitartrate 16 MG in D5W 500ml 550 ML IV SCH (13:04)
--- NOTE | 2019-06-18 14:37 | Cardiac Electrophysiology PN ---
Assessment/Plan Assessment/Plan 1. Elevated troponin. Troponin on May 27 and May 30 were negative; however , on June 01, it was elevated at 0.074. Repeat 0.05. Likely due to renal failure. On Aspirin. Echo EF 60%. 2. Septic shock. On Levo 6 mcg 3. ESRD, on hemodialysis per Dr. Cole. 4. Respiratory failure due to COVID-19 positive pneumonia. Still febrile On the Vent with 40% Fio2. Fu by Dr. Leyva and Dr. Mckeon. 5. MRSA carrier. 6. COPD. 7. Anemia. 8. Depression. 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 In SR. Is Covid positive x 3 Objective Last 24 Hour Vital Signs Date Time Temp Pulse Resp B/P (MAP) Pulse Ox O2 Delivery O2 Flow Rate FiO2 06/18/19 13:45 74 27 94/57 (69) 100 06/18/19 13:30 79 26 93/54 (67) 99 06/18/19 13:15 92 24 130/61 (84) 91 06/18/19 13:04 113/62 06/18/19 13:00 72 23 113/62 (79) 99 06/18/19 12:51 73 26 40 06/18/19 12:45 70 24 96/59 (71) 100 06/18/19 12:30 73 0 102/66 (78) 100 06/18/19 12:15 73 29 130/62 (84) 100 06/18/19 12:00 98.6 78 24 121/72 (88) 99 06/18/19 12:00 Mechanical Ventilator 06/18/19 12:00 77 06/18/19 12:00 40 06/18/19 11:45 75 29 109/76 (87) 100 06/18/19 11:30 74 26 122/66 (84) 100 06/18/19 11:15 73 23 112/67 (82) 100 06/18/19 11:00 70 28 100 Mechanical Ventilator 40 70 32 40 06/18/19 11:00 82 24 139/82 (101) 100 06/18/19 10:45 68 27 119/71 (87) 100 06/18/19 10:30 67 24 103/66 (78) 100 06/18/19 10:15 70 20 98/63 (75) 100 06/18/19 10:00 68 26 94/57 (69) 100 06/18/19 09:58 68 26 89/58 (68) 100 06/18/19 09:50 70 26 84/52 (63) 99 06/18/19 09:45 71 26 87/50 (62) 99 06/18/19 09:30 69 28 113/69 (84) 100 06/18/19 09:15 70 28 108/65 (79) 100 06/18/19 09:00 98.8 70 33 103/63 (76) 99 06/18/19 08:57 70 28 40 06/18/19 08:45 71 31 91/54 (66) 99 06/18/19 08:30 72 33 99/55 (70) 99 06/18/19 08:15 71 32 94/59 (71) 99 06/18/19 08:00 70 06/18/19 08:00 40 06/18/19 08:00 99.1 70 35 105/61 (76) 99 06/18/19 08:00 Mechanical Ventilator 06/18/19 07:45 69 31 109/63 (78) 100 06/18/19 07:30 70 31 106/65 (79) 100 06/18/19 07:26 72 31 100 Mechanical Ventilator 40 71 20 40 06/18/19 07:00 118/57 06/18/19 07:00 24 Mechanical Ventilator 40 06/18/19 07:00 74 31 117/67 (84) 100 06/18/19 06:50 98.6 06/18/19 06:30 77 31 109/60 (76) 100 06/18/19 06:00 91/54 06/18/19 06:00 26 Mechanical Ventilator 40 06/18/19 06:00 81 7 91/54 (66) 99 06/18/19 05:30 92 13 119/52 (74) 95 06/18/19 05:00 71 24 106/62 (77) 99 06/18/19 05:00 106/62 06/18/19 05:00 26 Mechanical Ventilator 40 06/18/19 04:30 98.6 72 24 105/57 (73) 99 06/18/19 04:00 Mechanical Ventilator 06/18/19 04:00 97/55 06/18/19 04:00 25 Mechanical Ventilator 40 06/18/19 04:00 40 06/18/19 04:00 74 26 97/55 (69) 97 06/18/19 04:00 72 06/18/19 03:44 75 29 100 Mechanical Ventilator 40 73 32 40 06/18/19 03:30 71 26 141/84 (103) 100 06/18/19 03:00 127/69 06/18/19 03:00 26 Mechanical Ventilator 40 06/18/19 03:00 71 27 127/69 (88) 100 06/18/19 02:30 72 28 128/68 (88) 100 06/18/19 02:00 107/63 06/18/19 02:00 26 Mechanical Ventilator 40 06/18/19 02:00 76 22 107/63 (78) 100 06/18/19 01:30 77 28 122/78 (93) 100 06/18/19 01:00 97.0 90 22 146/76 (99) 95 06/18/19 01:00 146/76 06/18/19 01:00 26 Mechanical Ventilator 40 06/18/19 00:30 81 26 145/79 (101) 99 06/18/19 00:00 Mechanical Ventilator 06/18/19 00:00 82 29 108/58 (75) 99 06/18/19 00:00 108/58 06/18/19 00:00 29 Mechanical Ventilator 40 06/17/19 23:45 102/60 06/17/19 23:30 74 26 111/64 (80) 100 06/17/19 23:30 111/64 06/17/19 23:15 118/69 06/17/19 23:13 73 28 100 Mechanical Ventilator 40 76 29 40 06/17/19 23:00 107/59 06/17/19 23:00 26 Mechanical Ventilator 40 06/17/19 23:00 98.4 72 28 107/59 (75) 100 06/17/19 22:45 76 30 92/56 (68) 99 06/17/19 22:45 96/52 06/17/19 22:45 28 Mechanical Ventilator 40 06/17/19 22:30 85 28 136/64 (88) 95 06/17/19 22:00 104/55 06/17/19 22:00 25 Mechanical Ventilator 40 06/17/19 22:00 100.0 75 24 104/55 (71) 99 06/17/19 21:30 78 25 103/56 (72) 99 06/17/19 21:00 77 26 100/54 (69) 98 06/17/19 21:00 100/54 06/17/19 21:00 24 Mechanical Ventilator 40 06/17/19 20:30 80 26 110/56 (74) 98 06/17/19 20:00 Mechanical Ventilator 06/17/19 20:00 105/57 06/17/19 20:00 16 Mechanical Ventilator 40 06/17/19 20:00 40 06/17/19 20:00 84 06/17/19 20:00 98.8 84 16 105/57 (73) 99 06/17/19 19:56 80 27 99 Mechanical Ventilator 40 78 28 40 06/17/19 19:00 104/61 06/17/19 19:00 26 Mechanical Ventilator 40 06/17/19 19:00 80 23 104/57 (73) 99 06/17/19 18:30 78 23 105/57 (73) 99 06/17/19 18:00 75 26 99/53 (68) 99 06/17/19 18:00 108/61 06/17/19 18:00 26 Mechanical Ventilator 40 06/17/19 17:44 98.3 06/17/19 17:35 78 26 95/50 (65) 98 06/17/19 17:13 26 Mechanical Ventilator 40 06/17/19 17:00 83 27 109/57 (74) 98 06/17/19 17:00 114/68 06/17/19 17:00 26 Mechanical Ventilator 40 06/17/19 16:58 78 28 40 06/17/19 16:30 78 27 98/55 (69) 98 06/17/19 16:00 40 06/17/19 16:00 76 24 94/46 (62) 95 06/17/19 16:00 108/58 06/17/19 16:00 26 Mechanical Ventilator 40 06/17/19 16:00 Mechanical Ventilator 06/17/19 16:00 77 06/17/19 16:00 100.7 06/17/19 15:30 78 26 98/47 (64) 95 06/17/19 15:11 79 26 97 Mechanical Ventilator 40 79 26 40 06/17/19 15:00 79 26 121/58 (79) 95 06/17/19 15:00 123/63 06/17/19 15:00 26 Mechanical Ventilator 40 Intake and Output 06/17/19 06/18/19 19:00 07:00 Intake Total 1178.06 ml 1093.791 ml Output Total 30 ml 10 ml Balance 1148.06 ml 1083.791 ml Free Water 120 ml IV Total 698.06 ml 673.791 ml Tube Feeding 440 ml 300 ml Other 40 ml Output Urine Total 30 ml 10 ml # Bowel Movements 2 3 Laboratory Tests Test 06/18/19 04:50 White Blood Count 21.7 K/UL (4.8-10.8) #H Red Blood Count 2.84 M/UL (4.70-6.10) L Hemoglobin 8.8 G/DL (14.2-18.0) L Hematocrit 26.6 % (42.0-52.0) L Mean Corpuscular Volume 94 FL (80-99) Mean Corpuscular Hemoglobin 31.1 PG (27.0-31.0) H Mean Corpuscular Hemoglobin Concent 33.3 G/DL (32.0-36.0) Red Cell Distribution Width 20.2 % (11.6-14.8) H Platelet Count 186 K/UL (150-450) # Mean Platelet Volume 8.0 FL (6.5-10.1) Neutrophils (%) (Auto) % (45.0-75.0) Lymphocytes (%) (Auto) % (20.0-45.0) Monocytes (%) (Auto) % (1.0-10.0) Eosinophils (%) (Auto) % (0.0-3.0) Basophils (%) (Auto) % (0.0-2.0) Differential Total Cells Counted 100 Neutrophils % (Manual) 90 % (45-75) H Lymphocytes % (Manual) 3 % (20-45) L Monocytes % (Manual) 7 % (1-10) Eosinophils % (Manual) 0 % (0-3) Basophils % (Manual) 0 % (0-2) Band Neutrophils 0 % (0-8) Platelet Estimate Adequate Platelet Morphology Normal Hypochromasia 2+ Anisocytosis 2+ Spherocytes 1+ Sodium Level 124 MMOL/L (136-145) L Potassium Level 4.6 MMOL/L (3.5-5.1) Chloride Level 87 MMOL/L (98-107) L Carbon Dioxide Level 22 MMOL/L (21-32) Anion Gap 16 mmol/L (5-15) H Blood Urea Nitrogen 71 mg/dL (7-18) H Creatinine 9.6 MG/DL (0.55-1.30) H Estimat Glomerular Filtration Rate 5.5 mL/min (>60) Glucose Level 336 MG/DL (74-106) #H Calcium Level 8.1 MG/DL (8.5-10.1) L Total Bilirubin 0.4 MG/DL (0.2-1.0) Aspartate Amino Transf (AST/SGOT) 25 U/L (15-37) Alanine Aminotransferase (ALT/SGPT) 20 U/L (12-78) Alkaline Phosphatase 78 U/L (46-116) Total Protein 7.5 G/DL (6.4-8.2) Albumin 1.7 G/DL (3.4-5.0) L Globulin 5.8 g/dL Albumin/Globulin Ratio 0.3 (1.0-2.7) L Random Vancomycin Level 21.9 ug/mL Objective HEAD AND NECK: No JVD.Orally intubated LUNGS: Decreased breath sounds. CARDIOVASCULAR: Regular S1 and S2. Tachycardic. ABDOMEN: Soft. EXTREMITIES: No pitting edema. New Left FV Gio Engle MD June 18, 2019 14:37
--- NOTE | 2019-06-18 14:56 | Surgery Progress Note ---
Surgery Progress Note Subjective Procedure Performed Right femoral temporary hemodialysis catheter insertion Additional Comments worsening leukocytosis weaning pressors vent settings okay ill appearing imaging reviewed Objective Last 24 Hour Vital Signs Date Time Temp Pulse Resp B/P (MAP) Pulse Ox O2 Delivery O2 Flow Rate FiO2 06/18/19 13:45 74 27 94/57 (69) 100 06/18/19 13:30 79 26 93/54 (67) 99 06/18/19 13:15 92 24 130/61 (84) 91 06/18/19 13:04 113/62 06/18/19 13:00 72 23 113/62 (79) 99 06/18/19 12:51 73 26 40 06/18/19 12:45 70 24 96/59 (71) 100 06/18/19 12:30 73 0 102/66 (78) 100 06/18/19 12:15 73 29 130/62 (84) 100 06/18/19 12:00 98.6 78 24 121/72 (88) 99 06/18/19 12:00 Mechanical Ventilator 06/18/19 12:00 77 06/18/19 12:00 40 06/18/19 11:45 75 29 109/76 (87) 100 06/18/19 11:30 74 26 122/66 (84) 100 06/18/19 11:15 73 23 112/67 (82) 100 06/18/19 11:00 70 28 100 Mechanical Ventilator 40 70 32 40 06/18/19 11:00 82 24 139/82 (101) 100 06/18/19 10:45 68 27 119/71 (87) 100 06/18/19 10:30 67 24 103/66 (78) 100 06/18/19 10:15 70 20 98/63 (75) 100 06/18/19 10:00 68 26 94/57 (69) 100 06/18/19 09:58 68 26 89/58 (68) 100 06/18/19 09:50 70 26 84/52 (63) 99 06/18/19 09:45 71 26 87/50 (62) 99 06/18/19 09:30 69 28 113/69 (84) 100 06/18/19 09:15 70 28 108/65 (79) 100 06/18/19 09:00 98.8 70 33 103/63 (76) 99 06/18/19 08:57 70 28 40 06/18/19 08:45 71 31 91/54 (66) 99 06/18/19 08:30 72 33 99/55 (70) 99 06/18/19 08:15 71 32 94/59 (71) 99 06/18/19 08:00 70 06/18/19 08:00 40 06/18/19 08:00 99.1 70 35 105/61 (76) 99 06/18/19 08:00 Mechanical Ventilator 06/18/19 07:45 69 31 109/63 (78) 100 06/18/19 07:30 70 31 106/65 (79) 100 06/18/19 07:26 72 31 100 Mechanical Ventilator 40 71 20 40 06/18/19 07:00 118/57 06/18/19 07:00 24 Mechanical Ventilator 40 06/18/19 07:00 74 31 117/67 (84) 100 06/18/19 06:50 98.6 06/18/19 06:30 77 31 109/60 (76) 100 06/18/19 06:00 91/54 06/18/19 06:00 26 Mechanical Ventilator 40 06/18/19 06:00 81 7 91/54 (66) 99 06/18/19 05:30 92 13 119/52 (74) 95 06/18/19 05:00 71 24 106/62 (77) 99 06/18/19 05:00 106/62 06/18/19 05:00 26 Mechanical Ventilator 40 06/18/19 04:30 98.6 72 24 105/57 (73) 99 06/18/19 04:00 Mechanical Ventilator 06/18/19 04:00 97/55 06/18/19 04:00 25 Mechanical Ventilator 40 06/18/19 04:00 40 06/18/19 04:00 74 26 97/55 (69) 97 06/18/19 04:00 72 06/18/19 03:44 75 29 100 Mechanical Ventilator 40 73 32 40 06/18/19 03:30 71 26 141/84 (103) 100 06/18/19 03:00 127/69 06/18/19 03:00 26 Mechanical Ventilator 40 06/18/19 03:00 71 27 127/69 (88) 100 06/18/19 02:30 72 28 128/68 (88) 100 06/18/19 02:00 107/63 06/18/19 02:00 26 Mechanical Ventilator 40 06/18/19 02:00 76 22 107/63 (78) 100 06/18/19 01:30 77 28 122/78 (93) 100 06/18/19 01:00 97.0 90 22 146/76 (99) 95 06/18/19 01:00 146/76 06/18/19 01:00 26 Mechanical Ventilator 40 06/18/19 00:30 81 26 145/79 (101) 99 06/18/19 00:00 Mechanical Ventilator 06/18/19 00:00 82 29 108/58 (75) 99 06/18/19 00:00 108/58 06/18/19 00:00 29 Mechanical Ventilator 40 06/17/19 23:45 102/60 06/17/19 23:30 74 26 111/64 (80) 100 06/17/19 23:30 111/64 06/17/19 23:15 118/69 06/17/19 23:13 73 28 100 Mechanical Ventilator 40 76 29 40 06/17/19 23:00 107/59 06/17/19 23:00 26 Mechanical Ventilator 40 06/17/19 23:00 98.4 72 28 107/59 (75) 100 06/17/19 22:45 76 30 92/56 (68) 99 06/17/19 22:45 96/52 06/17/19 22:45 28 Mechanical Ventilator 40 06/17/19 22:30 85 28 136/64 (88) 95 06/17/19 22:00 104/55 06/17/19 22:00 25 Mechanical Ventilator 40 06/17/19 22:00 100.0 75 24 104/55 (71) 99 06/17/19 21:30 78 25 103/56 (72) 99 06/17/19 21:00 77 26 100/54 (69) 98 06/17/19 21:00 100/54 06/17/19 21:00 24 Mechanical Ventilator 40 06/17/19 20:30 80 26 110/56 (74) 98 06/17/19 20:00 Mechanical Ventilator 06/17/19 20:00 105/57 06/17/19 20:00 16 Mechanical Ventilator 40 06/17/19 20:00 40 06/17/19 20:00 84 5/7/20 20:00 98.8 84 16 105/57 (73) 99 06/17/19 19:56 80 27 99 Mechanical Ventilator 40 78 28 40 06/17/19 19:00 104/61 06/17/19 19:00 26 Mechanical Ventilator 40 06/17/19 19:00 80 23 104/57 (73) 99 06/17/19 18:30 78 23 105/57 (73) 99 06/17/19 18:00 75 26 99/53 (68) 99 06/17/19 18:00 108/61 06/17/19 18:00 26 Mechanical Ventilator 40 06/17/19 17:44 98.3 06/17/19 17:35 78 26 95/50 (65) 98 06/17/19 17:13 26 Mechanical Ventilator 40 06/17/19 17:00 83 27 109/57 (74) 98 06/17/19 17:00 114/68 06/17/19 17:00 26 Mechanical Ventilator 40 06/17/19 16:58 78 28 40 06/17/19 16:30 78 27 98/55 (69) 98 06/17/19 16:00 40 06/17/19 16:00 76 24 94/46 (62) 95 06/17/19 16:00 108/58 06/17/19 16:00 26 Mechanical Ventilator 40 06/17/19 16:00 Mechanical Ventilator 06/17/19 16:00 77 06/17/19 16:00 100.7 06/17/19 15:30 78 26 98/47 (64) 95 06/17/19 15:11 79 26 97 Mechanical Ventilator 40 79 26 40 06/17/19 15:00 79 26 121/58 (79) 95 06/17/19 15:00 123/63 06/17/19 15:00 26 Mechanical Ventilator 40 I&O Intake and Output 06/17/19 06/18/19 19:00 07:00 Intake Total 1178.06 ml 1093.791 ml Output Total 30 ml 10 ml Balance 1148.06 ml 1083.791 ml Free Water 120 ml IV Total 698.06 ml 673.791 ml Tube Feeding 440 ml 300 ml Other 40 ml Output Urine Total 30 ml 10 ml # Bowel Movements 2 3 Dressing: other Wound: other Drains: other Cardiovascular: RSR Respiratory: decreased breath sounds Abdomen: soft, non-tender, present bowel sounds Extremities: no cyanosis Laboratory Tests Test 06/18/19 04:50 White Blood Count 21.7 K/UL (4.8-10.8) #H Red Blood Count 2.84 M/UL (4.70-6.10) L Hemoglobin 8.8 G/DL (14.2-18.0) L Hematocrit 26.6 % (42.0-52.0) L Mean Corpuscular Volume 94 FL (80-99) Mean Corpuscular Hemoglobin 31.1 PG (27.0-31.0) H Mean Corpuscular Hemoglobin Concent 33.3 G/DL (32.0-36.0) Red Cell Distribution Width 20.2 % (11.6-14.8) H Platelet Count 186 K/UL (150-450) # Mean Platelet Volume 8.0 FL (6.5-10.1) Neutrophils (%) (Auto) % (45.0-75.0) Lymphocytes (%) (Auto) % (20.0-45.0) Monocytes (%) (Auto) % (1.0-10.0) Eosinophils (%) (Auto) % (0.0-3.0) Basophils (%) (Auto) % (0.0-2.0) Differential Total Cells Counted 100 Neutrophils % (Manual) 90 % (45-75) H Lymphocytes % (Manual) 3 % (20-45) L Monocytes % (Manual) 7 % (1-10) Eosinophils % (Manual) 0 % (0-3) Basophils % (Manual) 0 % (0-2) Band Neutrophils 0 % (0-8) Platelet Estimate Adequate Platelet Morphology Normal Hypochromasia 2+ Anisocytosis 2+ Spherocytes 1+ Sodium Level 124 MMOL/L (136-145) L Potassium Level 4.6 MMOL/L (3.5-5.1) Chloride Level 87 MMOL/L (98-107) L Carbon Dioxide Level 22 MMOL/L (21-32) Anion Gap 16 mmol/L (5-15) H Blood Urea Nitrogen 71 mg/dL (7-18) H Creatinine 9.6 MG/DL (0.55-1.30) H Estimat Glomerular Filtration Rate 5.5 mL/min (>60) Glucose Level 336 MG/DL (74-106) #H Calcium Level 8.1 MG/DL (8.5-10.1) L Total Bilirubin 0.4 MG/DL (0.2-1.0) Aspartate Amino Transf (AST/SGOT) 25 U/L (15-37) Alanine Aminotransferase (ALT/SGPT) 20 U/L (12-78) Alkaline Phosphatase 78 U/L (46-116) Total Protein 7.5 G/DL (6.4-8.2) Albumin 1.7 G/DL (3.4-5.0) L Globulin 5.8 g/dL Albumin/Globulin Ratio 0.3 (1.0-2.7) L Random Vancomycin Level 21.9 ug/mL Plan Problems: (1) Suspected COVID-19 virus infection (2) HTN (hypertension) (3) CASSANDRA (acute kidney injury) Assessment & Plan: Needs urgent HD needs access patient okay and consented see note will follow with recs new line placed discussed with team and nephrology HD line functional when checked has TPA now please use appropriately Cathflo used again this flow during dialysis on 430 was low. Will monitor may need line change 5/ plan for HD as per renal (4) Anemia in chronic kidney disease (CKD) (5) Anemia (6) Renal failure (7) Suspected COVID-19 virus infection (8) COVID-19 Assessment & Plan: COVID + c diff negative febrile leukocytosis renal insufficiency see above cont resp care Rx as per ID worsening on vent support now cxr noted on pressors prognosis guarded Yaniv Mast June 18, 2019 14:56
--- NOTE | 2019-06-18 16:48 | General Progress Note ---
Assessment/Plan Problem List: (1) Anemia ICD Codes: D64.9 - Anemia, unspecified SNOMED: 777834432 (2) Renal failure ICD Codes: N19 - Unspecified kidney failure SNOMED: 62745600 (3) Suspected COVID-19 virus infection ICD Codes: R68.89 - Other general symptoms and signs SNOMED: 616174730 (4) HTN (hypertension) ICD Codes: I10 - Essential (primary) hypertension SNOMED: 36809009 (5) CASSANDRA (acute kidney injury) ICD Codes: N17.9 - Acute kidney failure, unspecified SNOMED: 9776102, 54269639 (6) Anemia in chronic kidney disease (CKD) ICD Codes: N18.9 - Chronic kidney disease, unspecified; D63.1 - Anemia in chronic kidney disease SNOMED: 718210131 (7) Suspected COVID-19 virus infection ICD Codes: R68.89 - Other general symptoms and signs SNOMED: 605232682 Status: progressing Assessment/Plan: worsening renal failure sepsis poor prognosis no wheezing weak abx per id pna covid positve resp failure sepsis worsening hyponatrmia persistent leukocytosis Subjective ROS Limited/Unobtainable: Yes Allergies: Coded Allergies: No Known Allergies (Unverified , 05/28/19) Objective Last 24 Hour Vital Signs Date Time Temp Pulse Resp B/P (MAP) Pulse Ox O2 Delivery O2 Flow Rate FiO2 06/18/19 16:00 101/68 06/18/19 16:00 26 Mechanical Ventilator 40 06/18/19 15:52 40 06/18/19 15:30 82 30 85/57 (66) 95 06/18/19 15:30 85/57 06/18/19 15:16 76 20 100 Mechanical Ventilator 40 73 20 40 06/18/19 15:15 74 30 106/67 (80) 99 06/18/19 15:00 73 28 118/75 (89) 98 06/18/19 14:59 118/75 06/18/19 14:59 26 Mechanical Ventilator 40 06/18/19 14:45 75 27 89/57 (68) 99 06/18/19 14:30 73 32 113/68 (83) 99 06/18/19 14:30 89/57 06/18/19 14:15 78 36 91/56 (68) 95 5/8/20 14:00 91/56 06/18/19 14:00 26 Mechanical Ventilator 100 06/18/19 14:00 71 28 106/64 (78) 100 06/18/19 13:45 74 27 94/57 (69) 100 06/18/19 13:30 79 26 93/54 (67) 99 06/18/19 13:15 92 24 130/61 (84) 91 06/18/19 13:04 113/62 06/18/19 13:00 72 23 113/62 (79) 99 06/18/19 13:00 113/62 06/18/19 13:00 26 Mechanical Ventilator 40 06/18/19 12:51 73 26 40 06/18/19 12:45 70 24 96/59 (71) 100 06/18/19 12:30 73 0 102/66 (78) 100 06/18/19 12:15 73 29 130/62 (84) 100 06/18/19 12:00 98.6 78 24 121/72 (88) 99 06/18/19 12:00 Mechanical Ventilator 06/18/19 12:00 77 06/18/19 12:00 130/62 06/18/19 12:00 26 Mechanical Ventilator 40 06/18/19 12:00 40 06/18/19 11:45 75 29 109/76 (87) 100 06/18/19 11:30 74 26 122/66 (84) 100 06/18/19 11:15 73 23 112/67 (82) 100 06/18/19 11:00 70 28 100 Mechanical Ventilator 40 70 32 40 06/18/19 11:00 82 24 139/82 (101) 100 06/18/19 11:00 112/67 06/18/19 11:00 26 Mechanical Ventilator 40 06/18/19 10:45 68 27 119/71 (87) 100 06/18/19 10:30 67 24 103/66 (78) 100 06/18/19 10:15 70 20 98/63 (75) 100 06/18/19 10:00 68 26 94/57 (69) 100 06/18/19 10:00 98/63 06/18/19 10:00 26 Mechanical Ventilator 40 06/18/19 09:58 68 26 89/58 (68) 100 06/18/19 09:50 70 26 84/52 (63) 99 06/18/19 09:45 71 26 87/50 (62) 99 06/18/19 09:30 69 28 113/69 (84) 100 06/18/19 09:15 70 28 108/65 (79) 100 06/18/19 09:00 98.8 70 33 103/63 (76) 99 06/18/19 09:00 108/65 06/18/19 09:00 26 Mechanical Ventilator 40 06/18/19 08:57 70 28 40 06/18/19 08:45 71 31 91/54 (66) 99 06/18/19 08:30 72 33 99/55 (70) 99 06/18/19 08:15 71 32 94/59 (71) 99 06/18/19 08:00 70 06/18/19 08:00 40 06/18/19 08:00 99.1 70 35 105/61 (76) 99 06/18/19 08:00 94/59 06/18/19 08:00 26 Mechanical Ventilator 40 06/18/19 08:00 Mechanical Ventilator 06/18/19 07:45 69 31 109/63 (78) 100 06/18/19 07:30 70 31 106/65 (79) 100 06/18/19 07:26 72 31 100 Mechanical Ventilator 40 71 20 40 06/18/19 07:00 118/57 06/18/19 07:00 24 Mechanical Ventilator 40 06/18/19 07:00 74 31 117/67 (84) 100 06/18/19 06:50 98.6 06/18/19 06:30 77 31 109/60 (76) 100 06/18/19 06:00 91/54 06/18/19 06:00 26 Mechanical Ventilator 40 06/18/19 06:00 81 7 91/54 (66) 99 06/18/19 05:30 92 13 119/52 (74) 95 06/18/19 05:00 71 24 106/62 (77) 99 06/18/19 05:00 106/62 06/18/19 05:00 26 Mechanical Ventilator 40 06/18/19 04:30 98.6 72 24 105/57 (73) 99 06/18/19 04:00 Mechanical Ventilator 06/18/19 04:00 97/55 06/18/19 04:00 25 Mechanical Ventilator 40 06/18/19 04:00 40 5/8/20 04:00 74 26 97/55 (69) 97 06/18/19 04:00 72 06/18/19 03:44 75 29 100 Mechanical Ventilator 40 73 32 40 06/18/19 03:30 71 26 141/84 (103) 100 06/18/19 03:00 127/69 06/18/19 03:00 26 Mechanical Ventilator 40 06/18/19 03:00 71 27 127/69 (88) 100 06/18/19 02:30 72 28 128/68 (88) 100 06/18/19 02:00 107/63 06/18/19 02:00 26 Mechanical Ventilator 40 06/18/19 02:00 76 22 107/63 (78) 100 06/18/19 01:30 77 28 122/78 (93) 100 06/18/19 01:00 97.0 90 22 146/76 (99) 95 06/18/19 01:00 146/76 06/18/19 01:00 26 Mechanical Ventilator 40 06/18/19 00:30 81 26 145/79 (101) 99 06/18/19 00:00 Mechanical Ventilator 06/18/19 00:00 82 29 108/58 (75) 99 06/18/19 00:00 108/58 06/18/19 00:00 29 Mechanical Ventilator 40 06/17/19 23:45 102/60 06/17/19 23:30 74 26 111/64 (80) 100 06/17/19 23:30 111/64 06/17/19 23:15 118/69 06/17/19 23:13 73 28 100 Mechanical Ventilator 40 76 29 40 06/17/19 23:00 107/59 06/17/19 23:00 26 Mechanical Ventilator 40 06/17/19 23:00 98.4 72 28 107/59 (75) 100 06/17/19 22:45 76 30 92/56 (68) 99 06/17/19 22:45 96/52 06/17/19 22:45 28 Mechanical Ventilator 40 06/17/19 22:30 85 28 136/64 (88) 95 06/17/19 22:00 104/55 06/17/19 22:00 25 Mechanical Ventilator 40 06/17/19 22:00 100.0 75 24 104/55 (71) 99 06/17/19 21:30 78 25 103/56 (72) 99 06/17/19 21:00 77 26 100/54 (69) 98 06/17/19 21:00 100/54 06/17/19 21:00 24 Mechanical Ventilator 40 06/17/19 20:30 80 26 110/56 (74) 98 06/17/19 20:00 Mechanical Ventilator 06/17/19 20:00 105/57 06/17/19 20:00 16 Mechanical Ventilator 40 06/17/19 20:00 40 06/17/19 20:00 84 06/17/19 20:00 98.8 84 16 105/57 (73) 99 06/17/19 19:56 80 27 99 Mechanical Ventilator 40 78 28 40 06/17/19 19:00 104/61 06/17/19 19:00 26 Mechanical Ventilator 40 06/17/19 19:00 80 23 104/57 (73) 99 06/17/19 18:30 78 23 105/57 (73) 99 06/17/19 18:00 75 26 99/53 (68) 99 06/17/19 18:00 108/61 06/17/19 18:00 26 Mechanical Ventilator 40 06/17/19 17:44 98.3 06/17/19 17:35 78 26 95/50 (65) 98 06/17/19 17:13 26 Mechanical Ventilator 40 06/17/19 17:00 83 27 109/57 (74) 98 06/17/19 17:00 114/68 06/17/19 17:00 26 Mechanical Ventilator 40 06/17/19 16:58 78 28 40 Intake and Output 06/17/19 06/18/19 19:00 07:00 Intake Total 1178.06 ml 1093.791 ml Output Total 30 ml 10 ml Balance 1148.06 ml 1083.791 ml Free Water 120 ml IV Total 698.06 ml 673.791 ml Tube Feeding 440 ml 300 ml Other 40 ml Output Urine Total 30 ml 10 ml # Bowel Movements 2 3 Laboratory Tests 06/18/19 04:50: White Blood Count 21.7#H, Red Blood Count 2.84L, Hemoglobin 8.8L, Hematocrit 26.6L, Mean Corpuscular Volume 94, Mean Corpuscular Hemoglobin 31.1H, Mean Corpuscular Hemoglobin Concent 33.3, Red Cell Distribution Width 20.2H, Platelet Count 186#, Mean Platelet Volume 8.0, Neutrophils (%) (Auto) , Lymphocytes (%) (Auto) , Monocytes (%) (Auto) , Eosinophils (%) (Auto) , Basophils (%) (Auto) , Differential Total Cells Counted 100, Neutrophils % ( Manual) 90H, Lymphocytes % (Manual) 3L, Monocytes % (Manual) 7, Eosinophils % ( Manual) 0, Basophils % (Manual) 0, Band Neutrophils 0, Platelet Estimate Adequate, Platelet Morphology Normal, Hypochromasia 2+, Anisocytosis 2+, Spherocytes 1+, Sodium Level 124L, Potassium Level 4.6, Chloride Level 87L, Carbon Dioxide Level 22, Anion Gap 16H, Blood Urea Nitrogen 71H, Creatinine 9.6H , Estimat Glomerular Filtration Rate 5.5, Glucose Level 336#H, Calcium Level 8.1L, Total Bilirubin 0.4, Aspartate Amino Transf (AST/SGOT) 25, Alanine Aminotransferase (ALT/SGPT) 20, Alkaline Phosphatase 78, Total Protein 7.5, Albumin 1.7L, Globulin 5.8, Albumin/Globulin Ratio 0.3L, Random Vancomycin Level 21.9 Height (Feet): 6 Height (Inches): 1.00 Weight (Pounds): 215 Karishma Mulligan MD June 18, 2019 16:48
--- NOTE | 2019-06-18 17:30 | Consultation ---
DATE OF CONSULTATION: 06/18/2019 CHIEF COMPLAINT: Dysphagia, anemia, elevated NG tube residuals. HISTORY OF PRESENT ILLNESS: Most of history per chart. The patient is a 68-year-old [facility] patient was admitted to the hospital with COVID positive pneumonia, intubated in ICU. Currently getting NG tube feeding. There was elevated residuals, so GI consult requested for evaluation. PAST MEDICAL HISTORY: 1. Diabetes. 2. Hypertension. 3. Coronary artery disease. 4. COPD. 5. Psychiatric disorder with schizophrenia. 6. History of hepatitis C. 7. HLP. 8. Chronic kidney disease, now with acute renal failure. 9. Anemia. 10. Hypothyroidism. 11. Spinal stenosis. 12. Constipation. 13. GERD. ALLERGIES: No known drug allergies. MEDICATIONS: Please see medication reconciliation list. FAMILY HISTORY: Noncontributory. REVIEW OF SYSTEMS: Unable to obtain. PAST SURGICAL HISTORY: Unknown. PHYSICAL EXAMINATION: GENERAL: Currently intubated in ICU, on pressors. VITAL SIGNS: Temperature 98.8, pulse 70, respirations 28, blood pressure . HEENT: Normocephalic and atraumatic. Mildly pale conjunctivae. NECK: Supple. CARDIOVASCULAR: Tachy, regular rate. Plus S1, S2. LUNGS: Decreased breath sounds bilaterally and diffusely based on the supine exam. ABDOMEN: Soft. Hypoactive bowel sounds. No rebound. No guarding. No peritoneal sign EXTREMITIES: No cyanosis. No clubbing. LABORATORY DATA: White count is 21,000, hemoglobin 8.8, hematocrit 26, platelet count 186. Chem-7, sodium is 124, potassium 4.6, BUN is 71, creatinine is 9.6. ASSESSMENT: This is a 68-year-old male with above medical problems. PLAN: From GI standpoint, we will Protonix to daily. Monitor hemoglobin and hematocrit. Transfuse as needed. Decrease the tube feeding to 35 mL an hour. Add Reglan 5 mg every 8 hours. Monitor for residuals. Also add MiraLAX or Colace for constipation. I want to thank, Dr. Mulligan, for this kind referral. Lexii FoleyD. DR: Eneida JOB#: [id number] CC: Karishma Mulligan M.D.; Fax#: [phone]
[2019-06-18] MEDS: Dyna-Hex 2% Top Sol 2oz TOPIC SCH (20:30)
[2019-06-18] MEDS: Epoetin Alfa-EPBX(ESRD on dialysis)10,000 unit/ml vial SUBQ SCH (21:46)
--- NOTE | 2019-06-18 23:14 | Pulmonolgy Critical Care Note ---
Critical Care - Asmt/Plan Assessment/Plan: Pulmonary CCM Progress Note HPI: Patient is a 68 year old man, care home resident, admitted c/o shortness of breath, cough, noted to have Covid 19 Pneumonia, Respiratory Failure S/p intubation, remains on pressors PRN, CXR improving FIO2 40%, adequate O2 sats, improving HD tolerated Hyponatremia Anemia Seen earlier ID following On HD per Renal Past Medical History: COPD, CKD, Hypertension, Anemia Hypotension requiring pressors, in ICU Persistently elevated WCC Allergies: No Known Allergies Improving Pulmonary Status on HD Physical Exam Vital Signs Noted Sedated on ventilator WDWN, no distress HEENT: NCAT,moist mm Chest: Occasional rhonchi Heart: HS1, HS2, RRR Abdomen: SNTND, no masses Extremities: Well perfused, no edema CHAIN CARRIER: No focal signs, no seizures, sedated Impression: COVID-19 virus infection Pneumonia Respiratory failure on ventilator Volume overload improving - on HD Hypotension on pressors Cardiomegaly Lymphopenia Elevated AST COPD Chronic Kidney Disease - HD H/o Hypertension Worsening anemia Plan: Antibiotics per ID HD Pressors PRN ACVC - wean as tolerated once pressors reduced/off ABG PRN 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 Monitor cultures/viral studies PPX Hemodialysis per Renal Psychiatry following [facility] - [facility] requested for when available, [facility] - not available as yet Laboratory Tests Noted: CXR: Hypoventilatory exam, interstitial changes, cardiomegaly, improving infiltrates Subjective ROS Limited/Unobtainable: No Constitutional: Denies: fever Respiratory: Reports: dry cough, shortness of breath Gastrointestinal/Abdominal: Reports: diarrhea, other - colace was stopped Psychiatric: Reports: other - refuses labs Allergies: Coded Allergies: No Known Allergies (Unverified , 05/28/19) All Systems: reviewed and negative except above Labs noted Critical Care - Objective Last 24 Hour Vital Signs Date Time Temp Pulse Resp B/P (MAP) Pulse Ox O2 Delivery O2 Flow Rate FiO2 06/18/19 23:00 78 30 100 Mechanical Ventilator 40 78 20 40 06/18/19 22:30 130/74 06/18/19 22:30 86 24 130/74 (92) 100 06/18/19 22:15 110/66 06/18/19 22:00 81 30 115/71 (86) 100 06/18/19 22:00 115/71 06/18/19 22:00 28 Mechanical Ventilator 40 06/18/19 21:48 138/84 06/18/19 21:45 125/70 06/18/19 21:30 134/71 06/18/19 21:30 82 33 134/71 (92) 100 06/18/19 21:15 118/70 06/18/19 21:00 84 28 118/65 (82) 100 06/18/19 21:00 118/65 06/18/19 21:00 26 Mechanical Ventilator 40 06/18/19 20:30 98.9 06/18/19 20:30 93 25 150/74 (99) 100 06/18/19 20:00 40 06/18/19 20:00 98.6 86 32 139/79 (99) 100 06/18/19 20:00 86 06/18/19 20:00 Mechanical Ventilator 06/18/19 20:00 139/79 06/18/19 20:00 26 Mechanical Ventilator 40 06/18/19 19:30 88 29 126/72 (90) 100 06/18/19 19:23 96 26 Mechanical Ventilator 40 40 06/18/19 19:00 114/65 06/18/19 19:00 26 Mechanical Ventilator 40 06/18/19 18:45 100 24 100 06/18/19 18:35 26 Mechanical Ventilator 40 06/18/19 18:30 98 25 132/65 (87) 99 06/18/19 18:30 26 Mechanical Ventilator 40 06/18/19 18:15 100 24 120/59 (79) 98 06/18/19 18:15 132/65 06/18/19 18:00 107 23 109/62 (78) 96 06/18/19 18:00 120/59 06/18/19 18:00 26 Mechanical Ventilator 40 06/18/19 17:45 118 29 146/130 (135) 100 06/18/19 17:30 97 27 128/72 (90) 97 06/18/19 17:15 96 27 132/74 (93) 96 06/18/19 17:06 100 20 40 06/18/19 17:03 99 28 135/70 (91) 98 06/18/19 17:00 93 24 129/73 (91) 98 06/18/19 17:00 128/72 06/18/19 17:00 26 Mechanical Ventilator 40 06/18/19 16:56 91 24 143/66 (91) 98 06/18/19 16:50 98 23 95/61 (72) 97 06/18/19 16:45 100 24 88/52 (64) 97 06/18/19 16:30 96 25 94/60 (71) 97 06/18/19 16:15 93 30 101/68 (79) 98 06/18/19 16:00 98.9 84 26 116/66 (83) 98 06/18/19 16:00 76 06/18/19 16:00 101/68 06/18/19 16:00 26 Mechanical Ventilator 40 06/18/19 16:00 Mechanical Ventilator 06/18/19 15:52 40 06/18/19 15:30 82 30 85/57 (66) 95 06/18/19 15:30 85/57 06/18/19 15:16 76 20 100 Mechanical Ventilator 40 73 20 40 06/18/19 15:15 74 30 106/67 (80) 99 06/18/19 15:00 73 28 118/75 (89) 98 06/18/19 14:59 118/75 06/18/19 14:59 26 Mechanical Ventilator 40 06/18/19 14:45 75 27 89/57 (68) 99 06/18/19 14:30 73 32 113/68 (83) 99 06/18/19 14:30 89/57 06/18/19 14:15 78 36 91/56 (68) 95 06/18/19 14:00 91/56 06/18/19 14:00 26 Mechanical Ventilator 100 06/18/19 14:00 71 28 106/64 (78) 100 06/18/19 13:45 74 27 94/57 (69) 100 06/18/19 13:30 79 26 93/54 (67) 99 06/18/19 13:15 92 24 130/61 (84) 91 06/18/19 13:04 113/62 06/18/19 13:00 72 23 113/62 (79) 99 06/18/19 13:00 113/62 06/18/19 13:00 26 Mechanical Ventilator 40 06/18/19 12:51 73 26 40 06/18/19 12:45 70 24 96/59 (71) 100 06/18/19 12:30 73 0 102/66 (78) 100 06/18/19 12:15 73 29 130/62 (84) 100 06/18/19 12:00 98.6 78 24 121/72 (88) 99 06/18/19 12:00 Mechanical Ventilator 06/18/19 12:00 77 06/18/19 12:00 130/62 06/18/19 12:00 26 Mechanical Ventilator 40 06/18/19 12:00 40 06/18/19 11:45 75 29 109/76 (87) 100 06/18/19 11:30 74 26 122/66 (84) 100 06/18/19 11:15 73 23 112/67 (82) 100 06/18/19 11:00 70 28 100 Mechanical Ventilator 40 70 32 40 06/18/19 11:00 82 24 139/82 (101) 100 06/18/19 11:00 112/67 06/18/19 11:00 26 Mechanical Ventilator 40 06/18/19 10:45 68 27 119/71 (87) 100 06/18/19 10:30 67 24 103/66 (78) 100 06/18/19 10:15 70 20 98/63 (75) 100 06/18/19 10:00 68 26 94/57 (69) 100 06/18/19 10:00 98/63 06/18/19 10:00 26 Mechanical Ventilator 40 06/18/19 09:58 68 26 89/58 (68) 100 06/18/19 09:50 70 26 84/52 (63) 99 06/18/19 09:45 71 26 87/50 (62) 99 06/18/19 09:30 69 28 113/69 (84) 100 06/18/19 09:15 70 28 108/65 (79) 100 06/18/19 09:00 98.8 70 33 103/63 (76) 99 06/18/19 09:00 108/65 06/18/19 09:00 26 Mechanical Ventilator 40 06/18/19 08:57 70 28 40 06/18/19 08:45 71 31 91/54 (66) 99 06/18/19 08:30 72 33 99/55 (70) 99 06/18/19 08:15 71 32 94/59 (71) 99 06/18/19 08:00 70 06/18/19 08:00 40 06/18/19 08:00 99.1 70 35 105/61 (76) 99 06/18/19 08:00 94/59 06/18/19 08:00 26 Mechanical Ventilator 40 06/18/19 08:00 Mechanical Ventilator 06/18/19 07:45 69 31 109/63 (78) 100 06/18/19 07:30 70 31 106/65 (79) 100 06/18/19 07:26 72 31 100 Mechanical Ventilator 40 71 20 40 06/18/19 07:00 118/57 06/18/19 07:00 24 Mechanical Ventilator 40 06/18/19 07:00 74 31 117/67 (84) 100 06/18/19 06:30 77 31 109/60 (76) 100 06/18/19 06:00 91/54 06/18/19 06:00 26 Mechanical Ventilator 40 06/18/19 06:00 81 7 91/54 (66) 99 06/18/19 05:30 92 13 119/52 (74) 95 06/18/19 05:00 71 24 106/62 (77) 99 06/18/19 05:00 106/62 06/18/19 05:00 26 Mechanical Ventilator 40 06/18/19 04:30 98.6 72 24 105/57 (73) 99 06/18/19 04:00 Mechanical Ventilator 06/18/19 04:00 97/55 06/18/19 04:00 25 Mechanical Ventilator 40 06/18/19 04:00 40 06/18/19 04:00 74 26 97/55 (69) 97 06/18/19 04:00 72 06/18/19 03:44 75 29 100 Mechanical Ventilator 40 73 32 40 06/18/19 03:30 71 26 141/84 (103) 100 06/18/19 03:00 127/69 06/18/19 03:00 26 Mechanical Ventilator 40 06/18/19 03:00 71 27 127/69 (88) 100 06/18/19 02:30 72 28 128/68 (88) 100 06/18/19 02:00 107/63 06/18/19 02:00 26 Mechanical Ventilator 40 06/18/19 02:00 76 22 107/63 (78) 100 06/18/19 01:30 77 28 122/78 (93) 100 06/18/19 01:00 97.0 90 22 146/76 (99) 95 06/18/19 01:00 146/76 06/18/19 01:00 26 Mechanical Ventilator 40 06/18/19 00:30 81 26 145/79 (101) 99 06/18/19 00:00 Mechanical Ventilator 06/18/19 00:00 82 29 108/58 (75) 99 06/18/19 00:00 108/58 06/18/19 00:00 29 Mechanical Ventilator 40 06/17/19 23:45 102/60 06/17/19 23:30 74 26 111/64 (80) 100 06/17/19 23:30 111/64 06/17/19 23:15 118/69 06/17/19 23:13 73 28 100 Mechanical Ventilator 40 76 29 40 Critical Care - Subjective ROS Limited/Unobtainable: No Condition: critical FI02: 40 Vent Support Breath Rate: 26 Vent Support Mode: AC Vent Tidal Volume: 500 Sputum Amount: Moderate PEEP: 8.0 PIP: 35 Tube Feeding Amount: 30 I&O: Intake and Output 06/17/19 06/18/19 19:00 07:00 Intake Total 1178.06 ml 1093.791 ml Output Total 30 ml 10 ml Balance 1148.06 ml 1083.791 ml Free Water 120 ml IV Total 698.06 ml 673.791 ml Tube Feeding 440 ml 300 ml Other 40 ml Output Urine Total 30 ml 10 ml # Bowel Movements 2 3 ET-Tube: 7.5 ET Position: 24 Arturo Mckeon MD June 18, 2019 23:14
[2019-06-19] VITALS (53 sets, daily range): BP systolic 83–157; BP diastolic 47–120
[2019-06-19] MEDS: Renvela 800mg Pkt NG SCH ×5 (00:27→23:12)
[2019-06-19] MEDS: Albuterol 90mcg Inhaler 8gm INH SCH ×6 (03:08→22:59)
[2019-06-19 04:43] LABS: HEMATOCRIT 26.7 % (42.0-52.0); HEMOGLOBIN 8.7 G/DL (14.2-18.0); MEAN CORPUSCULAR VOLUME 94 FL (80-99); PLATELET COUNT 178 K/UL (150-450); RED BLOOD COUNT 2.83 M/UL (4.70-6.10); RED CELL DISTRIBUTION WIDTH 19.3 % (11.6-14.8)
[2019-06-19] MEDS: Piperacillin/Tazobactam 2.25 GM in D5W 55 ML IVPB SCH ×3 (05:10→21:40)
[2019-06-19] MEDS: fentaNYL Citrate 2,500 MCG in NS 200 ML IV SCH ×3 (05:16→23:13)
[2019-06-19 05:37] LABS: ALANINE AMINOTRANSFERASE 13 U/L (12-78); ALBUMIN/GLOBULIN RATIO 0.4 (1.0-2.7); ALKALINE PHOSPHATASE 85 U/L (46-116); ANION GAP 15 mmol/L (5-15); ASPARTATE AMINO TRANSFERASE 20 U/L (15-37); BILIRUBIN,TOTAL 0.4 MG/DL (0.2-1.0); BLOOD UREA NITROGEN 54 mg/dL (7-18); CALCIUM 8.2 MG/DL (8.5-10.1); CARBON DIOXIDE 26 MMOL/L (21-32); CHLORIDE 88 MMOL/L (98-107); CREATININE 7.5 MG/DL (0.55-1.30); SODIUM 129 MMOL/L (136-145)
[2019-06-19 05:51] LABS: PHOSPHORUS 7.2 MG/DL (2.5-4.9)
[2019-06-19] MEDS: Docusate 100mg/10ml Liq NG SCH ×3 (09:38→17:59)
[2019-06-19] MEDS: Pantoprazole Inj IVP SCH (09:38)
[2019-06-19] MEDS: Midodrine 10mg tab NG SCH ×3 (09:38→17:59)
[2019-06-19] MEDS: Enoxaparin 30mg Inj SUBQ SCH (09:39)
[2019-06-19] MEDS ORDERED: Vancomycin 1gm/D5W 275ml IVPB ONE ×2 (10:30)
[2019-06-19] MEDS: Vasopressin 100 UNITS in NS 95 ML IV SCH (11:00)
--- NOTE | 2019-06-19 12:09 | Nephrology Progress Note ---
Assessment/Plan Problem List: (1) CASSANDRA (acute kidney injury) (2) Anemia in chronic kidney disease (CKD) (3) HTN (hypertension) (4) COVID-19 Assessment Acute renal failure most likely superimposed on chronic kidney disease Suspected COVID-19 virus infection Possible Pneumonia, lymphopenia, elevated AST Cardiomegaly, possible CHF COPD Hypertension Anemia, most likely related to chronic kidney disease Plan June 9: Patient dialyzed yesterday June 17 Serum sodium improved but still low Arrange for dialysis tomorrow June 19 Continue per consultants June 8: Due for dialysis today Today's lab reviewed, low serum sodium noted, Emphasized on high sodium bath to dialysis nurse Discussed with SHANIQUE Yuen June 16: Dialyzed yesterday Remains intubated Labs reviewed, serum sodium 131 Plan to dialyze tomorrow June 17 with high sodium bath Discussed with SHANIQUE Yuen June 15: Due for dialysis today Labs reviewed Discussed with RN Transfuse 1 unit of packed RBCs today for low hemoglobin of 7.1 June 5: Blood pressure well maintained Receive dialysis June 13 next hemodialysis June 15June 4: Discussed with RN in ICU Patient did not receive proper dialysis yesterday due to dialysis catheter malfunction Catheter to be adjusted today and dialyzed to be resumed today Continue per consultants Positive for COVID 28 June 2: Patient now intubated on mechanical ventilation Discussed with SHANIQUE Yuen, today June 12 Patient received dialysis yesterday June 10 next hemodialysis June 12 Blood pressure better maintained Today's labs reviewed Continue per consultants Previously patient received dialysis last evening June 05, next dialysis June 07 which was incomplete due to patient's hypotension Will start on midodrine for blood pressure support. Meanwhile continue other pressors as needed Previously Patient is doing poorly, septic, white blood cells are rising, Hypotension somewhat improved We will keep n.p.o. , NG tube for medications, and change medication to IV as needed Patient remains full code Monitor vancomycin level Previously: Patient pulled out his femoral catheter yesterday June 03 which was reinserted by Dr. Mast Patient scheduled for dialysis again June 04, which again was not done due to dialysis nurse citing catheter malfunction Meanwhile continue management per ID, pulmonary , and psych. Meanwhile white blood cell count is rising. Patient blood pressure borderline low. Will check ABG Previously May 31 : I believe patient need dialysis treatment He however needs to competency assessment if can make decisions or not I will communicate with Dr. Mulligan Previously: Per pulmonary and ID advice Adjust blood pressure medication Renal diet Anemia work-up 2D echocardiogram refused Kidney ultrasound refused Jules catheter Urine studies Per orders Subjective ROS Limited/Unobtainable: Yes Objective Objective Last 24 Hour Vital Signs Date Time Temp Pulse Resp B/P (MAP) Pulse Ox O2 Delivery O2 Flow Rate FiO2 06/19/19 11:30 79 21 107/63 (78) 100 06/19/19 11:00 76 18 97/57 (70) 100 06/19/19 10:30 77 19 104/56 (72) 99 06/19/19 10:00 91/55 06/19/19 10:00 19 Endotracheal Tube 40 06/19/19 10:00 79 19 93/55 (68) 98 06/19/19 09:30 85 19 97/61 (73) 99 06/19/19 09:00 100/64 06/19/19 09:00 21 Endotracheal Tube 40 06/19/19 09:00 85 21 109/68 (82) 99 06/19/19 08:30 78 24 106/66 (79) 100 06/19/19 08:00 Mechanical Ventilator 06/19/19 08:00 40 06/19/19 08:00 81 06/19/19 08:00 122/72 06/19/19 08:00 23 Endotracheal Tube 40 06/19/19 08:00 99.4 75 23 107/68 (81) 100 06/19/19 07:34 73 06/19/19 07:29 97.6 06/19/19 07:24 77 29 100 Mechanical Ventilator 40 79 27 40 06/19/19 07:15 74 11 101/64 (76) 100 06/19/19 07:00 75 26 99/58 (72) 100 06/19/19 06:45 86/64 06/19/19 06:30 82 13 93/59 (70) 100 06/19/19 06:00 97.6 85 29 133/80 (97) 100 06/19/19 06:00 133/80 06/19/19 06:00 26 Mechanical Ventilator 40 06/19/19 05:30 90 26 100/63 (75) 99 06/19/19 05:16 20 Mechanical Ventilator 40 06/19/19 05:00 76 20 102/64 (77) 99 06/19/19 05:00 102/64 06/19/19 05:00 26 Mechanical Ventilator 40 06/19/19 04:30 71 21 110/72 (85) 100 06/19/19 04:00 40 06/19/19 04:00 73 28 113/64 (80) 100 06/19/19 04:00 Mechanical Ventilator 06/19/19 04:00 113/64 06/19/19 04:00 26 Mechanical Ventilator 40 06/19/19 04:00 78 06/19/19 03:30 80 24 98/63 (75) 100 06/19/19 03:06 84 26 100 Mechanical Ventilator 40 86 20 40 06/19/19 03:00 92/59 06/19/19 03:00 28 Mechanical Ventilator 40 06/19/19 03:00 97.9 82 31 92/59 (70) 100 06/19/19 02:54 82 15 99/70 (80) 100 06/19/19 02:45 80 1 83/55 (64) 100 06/19/19 02:30 88 23 98/61 (73) 100 06/19/19 02:15 85 32 105/63 (77) 100 06/19/19 02:00 92 28 101/68 (79) 100 06/19/19 02:00 101/68 06/19/19 02:00 26 Mechanical Ventilator 40 06/19/19 01:50 28 Mechanical Ventilator 40 06/19/19 01:45 103 26 129/77 (94) 98 06/19/19 01:40 129/77 06/19/19 01:40 28 Mechanical Ventilator 40 06/19/19 01:30 107 13 114/63 (80) 95 06/19/19 01:30 30 Mechanical Ventilator 40 06/19/19 01:20 130/110 06/19/19 01:20 30 Mechanical Ventilator 40 06/19/19 01:15 114 22 134/120 (125) 97 06/19/19 01:10 32 Mechanical Ventilator 40 06/19/19 01:00 157/82 06/19/19 01:00 32 Mechanical Ventilator 40 06/19/19 01:00 122 15 157/82 (107) 92 06/19/19 00:50 30 Mechanical Ventilator 40 06/19/19 00:45 89 12 122/72 (89) 100 06/19/19 00:40 24 Mechanical Ventilator 40 06/19/19 00:30 29 Mechanical Ventilator 40 06/19/19 00:30 79 23 122/80 (94) 100 06/19/19 00:15 78 17 136/74 (94) 100 06/19/19 00:00 145/73 06/19/19 00:00 28 Mechanical Ventilator 40 06/19/19 00:00 Mechanical Ventilator 06/19/19 00:00 97.6 80 20 145/73 (97) 100 06/18/19 23:30 79 27 128/74 (92) 100 06/18/19 23:00 79 25 131/86 (101) 100 06/18/19 23:00 78 30 100 Mechanical Ventilator 40 78 20 40 06/18/19 23:00 131/86 06/18/19 23:00 25 Mechanical Ventilator 40 06/18/19 22:30 130/74 06/18/19 22:30 86 24 130/74 (92) 100 06/18/19 22:15 110/66 06/18/19 22:00 81 30 115/71 (86) 100 06/18/19 22:00 115/71 06/18/19 22:00 28 Mechanical Ventilator 40 06/18/19 21:48 138/84 06/18/19 21:45 125/70 06/18/19 21:30 134/71 06/18/19 21:30 82 33 134/71 (92) 100 06/18/19 21:15 118/70 06/18/19 21:00 84 28 118/65 (82) 100 06/18/19 21:00 118/65 06/18/19 21:00 26 Mechanical Ventilator 40 06/18/19 20:30 93 25 150/74 (99) 100 06/18/19 20:00 40 06/18/19 20:00 98.6 86 32 139/79 (99) 100 06/18/19 20:00 86 06/18/19 20:00 Mechanical Ventilator 06/18/19 20:00 139/79 06/18/19 20:00 26 Mechanical Ventilator 40 06/18/19 19:30 88 29 126/72 (90) 100 06/18/19 19:23 96 26 100 Mechanical Ventilator 40 98 28 40 06/18/19 19:00 114/65 06/18/19 19:00 26 Mechanical Ventilator 40 06/18/19 18:45 100 24 100 06/18/19 18:35 26 Mechanical Ventilator 40 06/18/19 18:30 98 25 132/65 (87) 99 06/18/19 18:30 26 Mechanical Ventilator 40 06/18/19 18:15 100 24 120/59 (79) 98 06/18/19 18:15 132/65 06/18/19 18:00 107 23 109/62 (78) 96 06/18/19 18:00 120/59 06/18/19 18:00 26 Mechanical Ventilator 40 06/18/19 17:45 118 29 146/130 (135) 100 06/18/19 17:30 97 27 128/72 (90) 97 06/18/19 17:15 96 27 132/74 (93) 96 06/18/19 17:06 100 20 40 06/18/19 17:03 99 28 135/70 (91) 98 06/18/19 17:00 93 24 129/73 (91) 98 06/18/19 17:00 128/72 06/18/19 17:00 26 Mechanical Ventilator 40 06/18/19 16:56 91 24 143/66 (91) 98 06/18/19 16:50 98 23 95/61 (72) 97 06/18/19 16:45 100 24 88/52 (64) 97 06/18/19 16:30 96 25 94/60 (71) 97 06/18/19 16:15 93 30 101/68 (79) 98 06/18/19 16:00 98.9 84 26 116/66 (83) 98 06/18/19 16:00 76 06/18/19 16:00 101/68 06/18/19 16:00 26 Mechanical Ventilator 40 06/18/19 16:00 Mechanical Ventilator 06/18/19 15:52 40 06/18/19 15:30 82 30 85/57 (66) 95 06/18/19 15:30 85/57 06/18/19 15:16 76 20 100 Mechanical Ventilator 40 73 20 40 06/18/19 15:15 74 30 106/67 (80) 99 06/18/19 15:00 73 28 118/75 (89) 98 06/18/19 14:59 118/75 06/18/19 14:59 26 Mechanical Ventilator 40 5/8/20 14:45 75 27 89/57 (68) 99 06/18/19 14:30 73 32 113/68 (83) 99 06/18/19 14:30 89/57 06/18/19 14:15 78 36 91/56 (68) 95 06/18/19 14:00 91/56 06/18/19 14:00 26 Mechanical Ventilator 100 06/18/19 14:00 71 28 106/64 (78) 100 06/18/19 13:45 74 27 94/57 (69) 100 06/18/19 13:30 79 26 93/54 (67) 99 06/18/19 13:15 92 24 130/61 (84) 91 06/18/19 13:04 113/62 06/18/19 13:00 72 23 113/62 (79) 99 06/18/19 13:00 113/62 06/18/19 13:00 26 Mechanical Ventilator 40 06/18/19 12:51 73 26 40 06/18/19 12:45 70 24 96/59 (71) 100 06/18/19 12:30 73 0 102/66 (78) 100 06/18/19 12:15 73 29 130/62 (84) 100 Intake and Output 06/18/19 06/19/19 19:00 07:00 Intake Total 928.215 ml 1136.55 ml Output Total 2030 ml 35 ml Balance -1101.785 ml 1101.55 ml Free Water 180 ml IV Total 628.215 ml 686.55 ml Tube Feeding 300 ml 270 ml Output Urine Total 30 ml 35 ml Hemodialysis UF 2000 ml # Bowel Movements 2 3 Laboratory Tests 06/19/19 04:00: White Blood Count 15.0H, Red Blood Count 2.83L, Hemoglobin 8.7L, Hematocrit 26.7L, Mean Corpuscular Volume 94, Mean Corpuscular Hemoglobin 30.8, Mean Corpuscular Hemoglobin Concent 32.7, Red Cell Distribution Width 19.3H, Platelet Count 178, Mean Platelet Volume 8.9, Neutrophils (%) (Auto) , Lymphocytes (%) (Auto) , Monocytes (%) (Auto) , Eosinophils (%) (Auto) , Basophils (%) (Auto) , Differential Total Cells Counted 100, Neutrophils % ( Manual) 80H, Lymphocytes % (Manual) 7L, Monocytes % (Manual) 13H, Eosinophils % (Manual) 0, Basophils % (Manual) 0, Band Neutrophils 0, Platelet Estimate Adequate, Platelet Morphology Normal, Hypochromasia 2+, Anisocytosis 2+, Spherocytes 1+, Sodium Level 129L, Potassium Level 4.0, Chloride Level 88L, Carbon Dioxide Level 26, Anion Gap 15, Blood Urea Nitrogen 54H, Creatinine 7.5H , Estimat Glomerular Filtration Rate 7.3, Glucose Level 376H, Uric Acid 3.8, Calcium Level 8.2L, Phosphorus Level 7.2H, Magnesium Level 2.1, Total Bilirubin 0.4, Aspartate Amino Transf (AST/SGOT) 20, Alanine Aminotransferase (ALT/SGPT) 13, Alkaline Phosphatase 85, C-Reactive Protein, Quantitative 27.4H, Pro-B-Type Natriuretic Peptide > 70359R, Total Protein 7.7, Albumin 2.0L, Globulin 5.7, Albumin/Globulin Ratio 0.4L, Thyroid Stimulating Hormone (TSH) 3.946H, Random Vancomycin Level 17.8 Height (Feet): 6 Height (Inches): 1.00 Weight (Pounds): 240 General Appearance: no apparent distress, lethargic EENT: other - Intubated on ventilator Cardiovascular: normal rate Respiratory/Chest: decreased breath sounds Abdomen: distended Objective No change Mic Cole MD June 19, 2019 12:09
--- NOTE | 2019-06-19 16:03 | Cardiac Electrophysiology PN ---
Assessment/Plan Assessment/Plan 1. Elevated troponin. Troponin on May 27 and May 30 were negative; however , on June 01, it was elevated at 0.074. Repeat 0.05. Likely due to renal failure. On Aspirin. Echo EF 60%. 2. Septic shock. On Levo 8 mcg 3. ESRD, on hemodialysis per Dr. Cole. 4. Respiratory failure due to COVID-19 positive pneumonia. Still febrile On the Vent with 40% Fio2. Fu by Dr. Leyva and Dr. Mckeon. 5. MRSA carrier. 6. COPD. 7. Anemia. 8. Depression. 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 In SR. Is Covid positive x 3 Objective Last 24 Hour Vital Signs Date Time Temp Pulse Resp B/P (MAP) Pulse Ox O2 Delivery O2 Flow Rate FiO2 06/19/19 15:11 72 27 40 06/19/19 15:00 72 16 121/61 (81) 100 06/19/19 14:00 24 Endotracheal Tube 40 06/19/19 14:00 73 18 117/60 (79) 100 06/19/19 13:30 78 16 119/67 (84) 100 06/19/19 13:19 14 Endotracheal Tube 70.0 40 06/19/19 13:00 99.5 73 16 119/64 (82) 100 06/19/19 12:00 40 06/19/19 12:00 72 14 112/60 (77) 100 06/19/19 12:00 Mechanical Ventilator 06/19/19 12:00 112/60 06/19/19 12:00 73 06/19/19 11:30 79 21 107/63 (78) 100 06/19/19 11:29 75 27 100 Mechanical Ventilator 40 89 28 40 06/19/19 11:00 76 18 97/57 (70) 100 06/19/19 11:00 92/55 06/19/19 10:30 77 19 104/56 (72) 99 06/19/19 10:00 91/55 06/19/19 10:00 19 Endotracheal Tube 40 06/19/19 10:00 79 19 93/55 (68) 98 06/19/19 09:30 85 19 97/61 (73) 99 06/19/19 09:00 100/64 06/19/19 09:00 21 Endotracheal Tube 40 06/19/19 09:00 85 21 109/68 (82) 99 06/19/19 08:30 78 24 106/66 (79) 100 06/19/19 08:00 Mechanical Ventilator 06/19/19 08:00 40 06/19/19 08:00 81 06/19/19 08:00 122/72 06/19/19 08:00 23 Endotracheal Tube 40 06/19/19 08:00 99.4 75 23 107/68 (81) 100 06/19/19 07:34 73 06/19/19 07:29 97.6 06/19/19 07:24 77 29 100 Mechanical Ventilator 40 79 27 40 06/19/19 07:15 74 11 101/64 (76) 100 06/19/19 07:00 75 26 99/58 (72) 100 06/19/19 06:45 86/64 06/19/19 06:30 82 13 93/59 (70) 100 06/19/19 06:00 97.6 85 29 133/80 (97) 100 06/19/19 06:00 133/80 06/19/19 06:00 26 Mechanical Ventilator 40 06/19/19 05:30 90 26 100/63 (75) 99 06/19/19 05:16 20 Mechanical Ventilator 40 06/19/19 05:00 76 20 102/64 (77) 99 06/19/19 05:00 102/64 06/19/19 05:00 26 Mechanical Ventilator 40 06/19/19 04:30 71 21 110/72 (85) 100 06/19/19 04:00 40 06/19/19 04:00 73 28 113/64 (80) 100 06/19/19 04:00 Mechanical Ventilator 06/19/19 04:00 113/64 06/19/19 04:00 26 Mechanical Ventilator 40 06/19/19 04:00 78 06/19/19 03:30 80 24 98/63 (75) 100 06/19/19 03:06 84 26 100 Mechanical Ventilator 40 86 20 40 06/19/19 03:00 92/59 06/19/19 03:00 28 Mechanical Ventilator 40 06/19/19 03:00 97.9 82 31 92/59 (70) 100 06/19/19 02:54 82 15 99/70 (80) 100 06/19/19 02:45 80 1 83/55 (64) 100 06/19/19 02:30 88 23 98/61 (73) 100 06/19/19 02:15 85 32 105/63 (77) 100 06/19/19 02:00 92 28 101/68 (79) 100 06/19/19 02:00 101/68 06/19/19 02:00 26 Mechanical Ventilator 40 06/19/19 01:50 28 Mechanical Ventilator 40 06/19/19 01:45 103 26 129/77 (94) 98 06/19/19 01:40 129/77 06/19/19 01:40 28 Mechanical Ventilator 40 06/19/19 01:30 107 13 114/63 (80) 95 06/19/19 01:30 30 Mechanical Ventilator 40 06/19/19 01:20 130/110 06/19/19 01:20 30 Mechanical Ventilator 40 06/19/19 01:15 114 22 134/120 (125) 97 06/19/19 01:10 32 Mechanical Ventilator 40 06/19/19 01:00 157/82 06/19/19 01:00 32 Mechanical Ventilator 40 06/19/19 01:00 122 15 157/82 (107) 92 06/19/19 00:50 30 Mechanical Ventilator 40 06/19/19 00:45 89 12 122/72 (89) 100 06/19/19 00:40 24 Mechanical Ventilator 40 06/19/19 00:30 29 Mechanical Ventilator 40 06/19/19 00:30 79 23 122/80 (94) 100 06/19/19 00:15 78 17 136/74 (94) 100 06/19/19 00:00 145/73 06/19/19 00:00 28 Mechanical Ventilator 40 06/19/19 00:00 Mechanical Ventilator 06/19/19 00:00 97.6 80 20 145/73 (97) 100 06/18/19 23:30 79 27 128/74 (92) 100 06/18/19 23:00 79 25 131/86 (101) 100 06/18/19 23:00 78 30 100 Mechanical Ventilator 40 78 20 40 06/18/19 23:00 131/86 06/18/19 23:00 25 Mechanical Ventilator 40 06/18/19 22:30 130/74 06/18/19 22:30 86 24 130/74 (92) 100 06/18/19 22:15 110/66 06/18/19 22:00 81 30 115/71 (86) 100 06/18/19 22:00 115/71 06/18/19 22:00 28 Mechanical Ventilator 40 06/18/19 21:48 138/84 06/18/19 21:45 125/70 06/18/19 21:30 134/71 06/18/19 21:30 82 33 134/71 (92) 100 06/18/19 21:15 118/70 06/18/19 21:00 84 28 118/65 (82) 100 06/18/19 21:00 118/65 06/18/19 21:00 26 Mechanical Ventilator 40 06/18/19 20:30 93 25 150/74 (99) 100 06/18/19 20:00 40 06/18/19 20:00 98.6 86 32 139/79 (99) 100 06/18/19 20:00 86 06/18/19 20:00 Mechanical Ventilator 06/18/19 20:00 139/79 06/18/19 20:00 26 Mechanical Ventilator 40 06/18/19 19:30 88 29 126/72 (90) 100 06/18/19 19:23 96 26 100 Mechanical Ventilator 40 98 28 40 06/18/19 19:00 114/65 06/18/19 19:00 26 Mechanical Ventilator 40 06/18/19 18:45 100 24 100 06/18/19 18:35 26 Mechanical Ventilator 40 06/18/19 18:30 98 25 132/65 (87) 99 06/18/19 18:30 26 Mechanical Ventilator 40 06/18/19 18:15 100 24 120/59 (79) 98 06/18/19 18:15 132/65 06/18/19 18:00 107 23 109/62 (78) 96 06/18/19 18:00 120/59 06/18/19 18:00 26 Mechanical Ventilator 40 06/18/19 17:45 118 29 146/130 (135) 100 06/18/19 17:30 97 27 128/72 (90) 97 06/18/19 17:15 96 27 132/74 (93) 96 06/18/19 17:06 100 20 40 5/8/20 17:03 99 28 135/70 (91) 98 06/18/19 17:00 93 24 129/73 (91) 98 06/18/19 17:00 128/72 06/18/19 17:00 26 Mechanical Ventilator 40 06/18/19 16:56 91 24 143/66 (91) 98 06/18/19 16:50 98 23 95/61 (72) 97 06/18/19 16:45 100 24 88/52 (64) 97 06/18/19 16:30 96 25 94/60 (71) 97 06/18/19 16:15 93 30 101/68 (79) 98 Intake and Output 06/18/19 06/19/19 19:00 07:00 Intake Total 928.215 ml 1136.55 ml Output Total 2030 ml 35 ml Balance -1101.785 ml 1101.55 ml Free Water 180 ml IV Total 628.215 ml 686.55 ml Tube Feeding 300 ml 270 ml Output Urine Total 30 ml 35 ml Hemodialysis UF 2000 ml # Bowel Movements 2 3 Laboratory Tests Test 06/19/19 04:00 White Blood Count 15.0 K/UL (4.8-10.8) H Red Blood Count 2.83 M/UL (4.70-6.10) L Hemoglobin 8.7 G/DL (14.2-18.0) L Hematocrit 26.7 % (42.0-52.0) L Mean Corpuscular Volume 94 FL (80-99) Mean Corpuscular Hemoglobin 30.8 PG (27.0-31.0) Mean Corpuscular Hemoglobin Concent 32.7 G/DL (32.0-36.0) Red Cell Distribution Width 19.3 % (11.6-14.8) H Platelet Count 178 K/UL (150-450) Mean Platelet Volume 8.9 FL (6.5-10.1) Neutrophils (%) (Auto) % (45.0-75.0) Lymphocytes (%) (Auto) % (20.0-45.0) Monocytes (%) (Auto) % (1.0-10.0) Eosinophils (%) (Auto) % (0.0-3.0) Basophils (%) (Auto) % (0.0-2.0) Differential Total Cells Counted 100 Neutrophils % (Manual) 80 % (45-75) H Lymphocytes % (Manual) 7 % (20-45) L Monocytes % (Manual) 13 % (1-10) H Eosinophils % (Manual) 0 % (0-3) Basophils % (Manual) 0 % (0-2) Band Neutrophils 0 % (0-8) Platelet Estimate Adequate Platelet Morphology Normal Hypochromasia 2+ Anisocytosis 2+ Spherocytes 1+ Sodium Level 129 MMOL/L (136-145) L Potassium Level 4.0 MMOL/L (3.5-5.1) Chloride Level 88 MMOL/L (98-107) L Carbon Dioxide Level 26 MMOL/L (21-32) Anion Gap 15 mmol/L (5-15) Blood Urea Nitrogen 54 mg/dL (7-18) H Creatinine 7.5 MG/DL (0.55-1.30) H Estimat Glomerular Filtration Rate 7.3 mL/min (>60) Glucose Level 376 MG/DL (74-106) H Uric Acid 3.8 MG/DL (2.6-7.2) Calcium Level 8.2 MG/DL (8.5-10.1) L Phosphorus Level 7.2 MG/DL (2.5-4.9) H Magnesium Level 2.1 MG/DL (1.8-2.4) Total Bilirubin 0.4 MG/DL (0.2-1.0) Aspartate Amino Transf (AST/SGOT) 20 U/L (15-37) Alanine Aminotransferase (ALT/SGPT) 13 U/L (12-78) Alkaline Phosphatase 85 U/L (46-116) C-Reactive Protein, Quantitative 27.4 mg/dL (0.00-0.90) H Pro-B-Type Natriuretic Peptide > 67067 pg/mL (0-125) H Total Protein 7.7 G/DL (6.4-8.2) Albumin 2.0 G/DL (3.4-5.0) L Globulin 5.7 g/dL Albumin/Globulin Ratio 0.4 (1.0-2.7) L Thyroid Stimulating Hormone (TSH) 3.946 uiU/mL (0.358-3.740) Random Vancomycin Level 17.8 ug/mL Objective HEAD AND NECK: No JVD.Orally intubated LUNGS: Decreased breath sounds. CARDIOVASCULAR: Regular S1 and S2. Tachycardic. ABDOMEN: Soft. EXTREMITIES: No pitting edema. New Left [facility] Gio Engle MD June 19, 2019 16:03
--- NOTE | 2019-06-19 16:46 | General Progress Note ---
Assessment/Plan Problem List: (1) Anemia ICD Codes: D64.9 - Anemia, unspecified SNOMED: 496224223 (2) Renal failure ICD Codes: N19 - Unspecified kidney failure SNOMED: 29567357 (3) Suspected COVID-19 virus infection ICD Codes: R68.89 - Other general symptoms and signs SNOMED: 106417681 (4) HTN (hypertension) ICD Codes: I10 - Essential (primary) hypertension SNOMED: 30470883 (5) CASSANDRA (acute kidney injury) ICD Codes: N17.9 - Acute kidney failure, unspecified SNOMED: 5469844, 17970784 (6) Anemia in chronic kidney disease (CKD) ICD Codes: N18.9 - Chronic kidney disease, unspecified; D63.1 - Anemia in chronic kidney disease SNOMED: 611558914 (7) Suspected COVID-19 virus infection ICD Codes: R68.89 - Other general symptoms and signs SNOMED: 523539757 Status: progressing Assessment/Plan: worsening renal failure afebrile malnutrition abx per id pna covid positve resp failure sepsis worsening hyponatrmia persistent leukocytosis anemia Subjective ROS Limited/Unobtainable: Yes Allergies: Coded Allergies: No Known Allergies (Unverified , 05/28/19) Objective Last 24 Hour Vital Signs Date Time Temp Pulse Resp B/P (MAP) Pulse Ox O2 Delivery O2 Flow Rate FiO2 06/19/19 15:11 72 27 40 06/19/19 15:00 72 16 121/61 (81) 100 06/19/19 14:00 24 Endotracheal Tube 40 06/19/19 14:00 73 18 117/60 (79) 100 06/19/19 13:30 78 16 119/67 (84) 100 06/19/19 13:19 14 Endotracheal Tube 70.0 40 06/19/19 13:00 99.5 73 16 119/64 (82) 100 06/19/19 12:00 40 06/19/19 12:00 72 14 112/60 (77) 100 06/19/19 12:00 Mechanical Ventilator 06/19/19 12:00 112/60 06/19/19 12:00 73 06/19/19 11:30 79 21 107/63 (78) 100 06/19/19 11:29 75 27 100 Mechanical Ventilator 40 89 28 40 06/19/19 11:00 76 18 97/57 (70) 100 06/19/19 11:00 92/55 06/19/19 10:30 77 19 104/56 (72) 99 06/19/19 10:00 91/55 06/19/19 10:00 19 Endotracheal Tube 40 06/19/19 10:00 79 19 93/55 (68) 98 06/19/19 09:30 85 19 97/61 (73) 99 06/19/19 09:00 100/64 06/19/19 09:00 21 Endotracheal Tube 40 06/19/19 09:00 85 21 109/68 (82) 99 06/19/19 08:30 78 24 106/66 (79) 100 06/19/19 08:00 Mechanical Ventilator 06/19/19 08:00 40 06/19/19 08:00 81 06/19/19 08:00 122/72 06/19/19 08:00 23 Endotracheal Tube 40 06/19/19 08:00 99.4 75 23 107/68 (81) 100 06/19/19 07:34 73 06/19/19 07:29 97.6 06/19/19 07:24 77 29 100 Mechanical Ventilator 40 79 27 40 06/19/19 07:15 74 11 101/64 (76) 100 06/19/19 07:00 75 26 99/58 (72) 100 06/19/19 06:45 86/64 06/19/19 06:30 82 13 93/59 (70) 100 06/19/19 06:00 97.6 85 29 133/80 (97) 100 06/19/19 06:00 133/80 06/19/19 06:00 26 Mechanical Ventilator 40 06/19/19 05:30 90 26 100/63 (75) 99 06/19/19 05:16 20 Mechanical Ventilator 40 06/19/19 05:00 76 20 102/64 (77) 99 06/19/19 05:00 102/64 06/19/19 05:00 26 Mechanical Ventilator 40 06/19/19 04:30 71 21 110/72 (85) 100 06/19/19 04:00 40 06/19/19 04:00 73 28 113/64 (80) 100 06/19/19 04:00 Mechanical Ventilator 06/19/19 04:00 113/64 06/19/19 04:00 26 Mechanical Ventilator 40 06/19/19 04:00 78 06/19/19 03:30 80 24 98/63 (75) 100 06/19/19 03:06 84 26 100 Mechanical Ventilator 40 86 20 40 06/19/19 03:00 92/59 06/19/19 03:00 28 Mechanical Ventilator 40 06/19/19 03:00 97.9 82 31 92/59 (70) 100 06/19/19 02:54 82 15 99/70 (80) 100 06/19/19 02:45 80 1 83/55 (64) 100 06/19/19 02:30 88 23 98/61 (73) 100 06/19/19 02:15 85 32 105/63 (77) 100 06/19/19 02:00 92 28 101/68 (79) 100 06/19/19 02:00 101/68 06/19/19 02:00 26 Mechanical Ventilator 40 06/19/19 01:50 28 Mechanical Ventilator 40 06/19/19 01:45 103 26 129/77 (94) 98 06/19/19 01:40 129/77 06/19/19 01:40 28 Mechanical Ventilator 40 06/19/19 01:30 107 13 114/63 (80) 95 06/19/19 01:30 30 Mechanical Ventilator 40 06/19/19 01:20 130/110 06/19/19 01:20 30 Mechanical Ventilator 40 06/19/19 01:15 114 22 134/120 (125) 97 06/19/19 01:10 32 Mechanical Ventilator 40 06/19/19 01:00 157/82 06/19/19 01:00 32 Mechanical Ventilator 40 06/19/19 01:00 122 15 157/82 (107) 92 06/19/19 00:50 30 Mechanical Ventilator 40 06/19/19 00:45 89 12 122/72 (89) 100 06/19/19 00:40 24 Mechanical Ventilator 40 06/19/19 00:30 29 Mechanical Ventilator 40 06/19/19 00:30 79 23 122/80 (94) 100 06/19/19 00:15 78 17 136/74 (94) 100 06/19/19 00:00 145/73 06/19/19 00:00 28 Mechanical Ventilator 40 06/19/19 00:00 Mechanical Ventilator 06/19/19 00:00 97.6 80 20 145/73 (97) 100 06/18/19 23:30 79 27 128/74 (92) 100 06/18/19 23:00 79 25 131/86 (101) 100 06/18/19 23:00 78 30 100 Mechanical Ventilator 40 78 20 40 06/18/19 23:00 131/86 06/18/19 23:00 25 Mechanical Ventilator 40 06/18/19 22:30 130/74 06/18/19 22:30 86 24 130/74 (92) 100 06/18/19 22:15 110/66 06/18/19 22:00 81 30 115/71 (86) 100 06/18/19 22:00 115/71 06/18/19 22:00 28 Mechanical Ventilator 40 06/18/19 21:48 138/84 06/18/19 21:45 125/70 06/18/19 21:30 134/71 06/18/19 21:30 82 33 134/71 (92) 100 06/18/19 21:15 118/70 06/18/19 21:00 84 28 118/65 (82) 100 06/18/19 21:00 118/65 06/18/19 21:00 26 Mechanical Ventilator 40 06/18/19 20:30 93 25 150/74 (99) 100 06/18/19 20:00 40 06/18/19 20:00 98.6 86 32 139/79 (99) 100 06/18/19 20:00 86 06/18/19 20:00 Mechanical Ventilator 06/18/19 20:00 139/79 06/18/19 20:00 26 Mechanical Ventilator 40 06/18/19 19:30 88 29 126/72 (90) 100 06/18/19 19:23 96 26 100 Mechanical Ventilator 40 98 28 40 06/18/19 19:00 114/65 06/18/19 19:00 26 Mechanical Ventilator 40 06/18/19 18:45 100 24 100 06/18/19 18:35 26 Mechanical Ventilator 40 06/18/19 18:30 98 25 132/65 (87) 99 06/18/19 18:30 26 Mechanical Ventilator 40 06/18/19 18:15 100 24 120/59 (79) 98 06/18/19 18:15 132/65 06/18/19 18:00 107 23 109/62 (78) 96 06/18/19 18:00 120/59 06/18/19 18:00 26 Mechanical Ventilator 40 06/18/19 17:45 118 29 146/130 (135) 100 06/18/19 17:30 97 27 128/72 (90) 97 06/18/19 17:15 96 27 132/74 (93) 96 06/18/19 17:06 100 20 40 06/18/19 17:03 99 28 135/70 (91) 98 06/18/19 17:00 93 24 129/73 (91) 98 06/18/19 17:00 128/72 06/18/19 17:00 26 Mechanical Ventilator 40 06/18/19 16:56 91 24 143/66 (91) 98 06/18/19 16:50 98 23 95/61 (72) 97 06/18/19 16:45 100 24 88/52 (64) 97 Intake and Output 06/18/19 06/19/19 19:00 07:00 Intake Total 928.215 ml 1136.55 ml Output Total 2030 ml 35 ml Balance -1101.785 ml 1101.55 ml Free Water 180 ml IV Total 628.215 ml 686.55 ml Tube Feeding 300 ml 270 ml Output Urine Total 30 ml 35 ml Hemodialysis UF 2000 ml # Bowel Movements 2 3 Laboratory Tests 06/19/19 04:00: White Blood Count 15.0H, Red Blood Count 2.83L, Hemoglobin 8.7L, Hematocrit 26.7L, Mean Corpuscular Volume 94, Mean Corpuscular Hemoglobin 30.8, Mean Corpuscular Hemoglobin Concent 32.7, Red Cell Distribution Width 19.3H, Platelet Count 178, Mean Platelet Volume 8.9, Neutrophils (%) (Auto) , Lymphocytes (%) (Auto) , Monocytes (%) (Auto) , Eosinophils (%) (Auto) , Basophils (%) (Auto) , Differential Total Cells Counted 100, Neutrophils % ( Manual) 80H, Lymphocytes % (Manual) 7L, Monocytes % (Manual) 13H, Eosinophils % (Manual) 0, Basophils % (Manual) 0, Band Neutrophils 0, Platelet Estimate Adequate, Platelet Morphology Normal, Hypochromasia 2+, Anisocytosis 2+, Spherocytes 1+, Sodium Level 129L, Potassium Level 4.0, Chloride Level 88L, Carbon Dioxide Level 26, Anion Gap 15, Blood Urea Nitrogen 54H, Creatinine 7.5H , Estimat Glomerular Filtration Rate 7.3, Glucose Level 376H, Uric Acid 3.8, Calcium Level 8.2L, Phosphorus Level 7.2H, Magnesium Level 2.1, Total Bilirubin 0.4, Aspartate Amino Transf (AST/SGOT) 20, Alanine Aminotransferase (ALT/SGPT) 13, Alkaline Phosphatase 85, C-Reactive Protein, Quantitative 27.4H, Pro-B-Type Natriuretic Peptide > 51685E, Total Protein 7.7, Albumin 2.0L, Globulin 5.7, Albumin/Globulin Ratio 0.4L, Thyroid Stimulating Hormone (TSH) 3.946H, Random Vancomycin Level 17.8 Height (Feet): 6 Height (Inches): 1.00 Weight (Pounds): 240 Karishma Mulligan MD June 19, 2019 16:46
--- NOTE | 2019-06-19 16:57 | GI Progress Note ---
Assessment/Plan Problems: (1) Sepsis due to severe acute respiratory syndrome coronavirus 2 (SARS-CoV-2) ICD Codes: U07.1 - COVID-19; A41.89 - Other specified sepsis SNOMED: 806407572, 715313856 (2) Pneumonia due to COVID-19 virus ICD Codes: U07.1 - COVID-19; J12.89 - Other viral pneumonia SNOMED: 326742256, 154532976 (3) Respiratory failure requiring intubation ICD Codes: J96.90 - Respiratory failure, unspecified, unspecified whether with hypoxia or hypercapnia; A41.89 - Other specified sepsis SNOMED: 099148501, 183466375 (4) COVID-19 ICD Codes: U07.1 - COVID-19 SNOMED: 582007345 (5) Anemia ICD Codes: D64.9 - Anemia, unspecified SNOMED: 421443446 Status: unchanged Status Narrative Discussed with Dr. Ramires. Assessment/Plan #decreased GI motility 2/2 to sepsis vs covid infection - continue low dose reglan 5mg IV q8 - decrease TF to 35cc/hr, monitor for residuals, advance to goal #Anemia most likely 2/2 to chronic renal disease - PPI IV daily - monitor H&H, prn transfusions - OB stool r/o GI bleed #Constipation - bowel regime Miralax and colace The patient was seen and examined at bedside and all new and available data was reviewed in the patients chart. I agree with the above findings, impression and plan. (Patient seen earlier today. Signature stamp does not reflect patient encounter time.). - Marito Ramires MD Subjective Subjective limited Objective Last 24 Hour Vital Signs Date Time Temp Pulse Resp B/P (MAP) Pulse Ox O2 Delivery O2 Flow Rate FiO2 06/19/19 16:00 75 06/19/19 15:11 72 27 40 06/19/19 15:00 72 16 121/61 (81) 100 06/19/19 14:00 24 Endotracheal Tube 40 06/19/19 14:00 73 18 117/60 (79) 100 06/19/19 13:30 78 16 119/67 (84) 100 06/19/19 13:19 14 Endotracheal Tube 70.0 40 06/19/19 13:00 99.5 73 16 119/64 (82) 100 06/19/19 12:00 40 06/19/19 12:00 72 14 112/60 (77) 100 06/19/19 12:00 Mechanical Ventilator 06/19/19 12:00 112/60 06/19/19 12:00 73 06/19/19 11:30 79 21 107/63 (78) 100 06/19/19 11:29 75 27 100 Mechanical Ventilator 40 89 28 40 06/19/19 11:00 76 18 97/57 (70) 100 06/19/19 11:00 92/55 06/19/19 10:30 77 19 104/56 (72) 99 06/19/19 10:00 91/55 06/19/19 10:00 19 Endotracheal Tube 40 06/19/19 10:00 79 19 93/55 (68) 98 06/19/19 09:30 85 19 97/61 (73) 99 06/19/19 09:00 100/64 06/19/19 09:00 21 Endotracheal Tube 40 06/19/19 09:00 85 21 109/68 (82) 99 06/19/19 08:30 78 24 106/66 (79) 100 06/19/19 08:00 Mechanical Ventilator 06/19/19 08:00 40 06/19/19 08:00 81 06/19/19 08:00 122/72 06/19/19 08:00 23 Endotracheal Tube 40 06/19/19 08:00 99.4 75 23 107/68 (81) 100 06/19/19 07:34 73 06/19/19 07:29 97.6 06/19/19 07:24 77 29 100 Mechanical Ventilator 40 79 27 40 06/19/19 07:15 74 11 101/64 (76) 100 06/19/19 07:00 75 26 99/58 (72) 100 06/19/19 06:45 86/64 06/19/19 06:30 82 13 93/59 (70) 100 06/19/19 06:00 97.6 85 29 133/80 (97) 100 06/19/19 06:00 133/80 06/19/19 06:00 26 Mechanical Ventilator 40 06/19/19 05:30 90 26 100/63 (75) 99 06/19/19 05:16 20 Mechanical Ventilator 40 06/19/19 05:00 76 20 102/64 (77) 99 06/19/19 05:00 102/64 06/19/19 05:00 26 Mechanical Ventilator 40 06/19/19 04:30 71 21 110/72 (85) 100 06/19/19 04:00 40 06/19/19 04:00 73 28 113/64 (80) 100 06/19/19 04:00 Mechanical Ventilator 06/19/19 04:00 113/64 06/19/19 04:00 26 Mechanical Ventilator 40 06/19/19 04:00 78 06/19/19 03:30 80 24 98/63 (75) 100 06/19/19 03:06 84 26 100 Mechanical Ventilator 40 86 20 40 06/19/19 03:00 92/59 06/19/19 03:00 28 Mechanical Ventilator 40 06/19/19 03:00 97.9 82 31 92/59 (70) 100 06/19/19 02:54 82 15 99/70 (80) 100 06/19/19 02:45 80 1 83/55 (64) 100 06/19/19 02:30 88 23 98/61 (73) 100 06/19/19 02:15 85 32 105/63 (77) 100 06/19/19 02:00 92 28 101/68 (79) 100 06/19/19 02:00 101/68 06/19/19 02:00 26 Mechanical Ventilator 40 06/19/19 01:50 28 Mechanical Ventilator 40 06/19/19 01:45 103 26 129/77 (94) 98 06/19/19 01:40 129/77 06/19/19 01:40 28 Mechanical Ventilator 40 06/19/19 01:30 107 13 114/63 (80) 95 06/19/19 01:30 30 Mechanical Ventilator 40 06/19/19 01:20 130/110 06/19/19 01:20 30 Mechanical Ventilator 40 06/19/19 01:15 114 22 134/120 (125) 97 06/19/19 01:10 32 Mechanical Ventilator 40 06/19/19 01:00 157/82 06/19/19 01:00 32 Mechanical Ventilator 40 06/19/19 01:00 122 15 157/82 (107) 92 06/19/19 00:50 30 Mechanical Ventilator 40 06/19/19 00:45 89 12 122/72 (89) 100 06/19/19 00:40 24 Mechanical Ventilator 40 06/19/19 00:30 29 Mechanical Ventilator 40 06/19/19 00:30 79 23 122/80 (94) 100 06/19/19 00:15 78 17 136/74 (94) 100 06/19/19 00:00 145/73 06/19/19 00:00 28 Mechanical Ventilator 40 06/19/19 00:00 Mechanical Ventilator 06/19/19 00:00 97.6 80 20 145/73 (97) 100 06/18/19 23:30 79 27 128/74 (92) 100 06/18/19 23:00 79 25 131/86 (101) 100 06/18/19 23:00 78 30 100 Mechanical Ventilator 40 78 20 40 06/18/19 23:00 131/86 06/18/19 23:00 25 Mechanical Ventilator 40 06/18/19 22:30 130/74 06/18/19 22:30 86 24 130/74 (92) 100 06/18/19 22:15 110/66 06/18/19 22:00 81 30 115/71 (86) 100 06/18/19 22:00 115/71 06/18/19 22:00 28 Mechanical Ventilator 40 06/18/19 21:48 138/84 06/18/19 21:45 125/70 06/18/19 21:30 134/71 06/18/19 21:30 82 33 134/71 (92) 100 06/18/19 21:15 118/70 06/18/19 21:00 84 28 118/65 (82) 100 06/18/19 21:00 118/65 06/18/19 21:00 26 Mechanical Ventilator 40 06/18/19 20:30 93 25 150/74 (99) 100 06/18/19 20:00 40 06/18/19 20:00 98.6 86 32 139/79 (99) 100 06/18/19 20:00 86 06/18/19 20:00 Mechanical Ventilator 06/18/19 20:00 139/79 06/18/19 20:00 26 Mechanical Ventilator 40 06/18/19 19:30 88 29 126/72 (90) 100 06/18/19 19:23 96 26 100 Mechanical Ventilator 40 98 28 40 06/18/19 19:00 114/65 5/8/20 19:00 26 Mechanical Ventilator 40 06/18/19 18:45 100 24 100 06/18/19 18:35 26 Mechanical Ventilator 40 06/18/19 18:30 98 25 132/65 (87) 99 06/18/19 18:30 26 Mechanical Ventilator 40 06/18/19 18:15 100 24 120/59 (79) 98 06/18/19 18:15 132/65 06/18/19 18:00 107 23 109/62 (78) 96 06/18/19 18:00 120/59 06/18/19 18:00 26 Mechanical Ventilator 40 06/18/19 17:45 118 29 146/130 (135) 100 06/18/19 17:30 97 27 128/72 (90) 97 06/18/19 17:15 96 27 132/74 (93) 96 06/18/19 17:06 100 20 40 06/18/19 17:03 99 28 135/70 (91) 98 06/18/19 17:00 93 24 129/73 (91) 98 06/18/19 17:00 128/72 06/18/19 17:00 26 Mechanical Ventilator 40 06/18/19 16:56 91 24 143/66 (91) 98 Intake and Output 06/18/19 06/19/19 19:00 07:00 Intake Total 928.215 ml 1136.55 ml Output Total 2030 ml 35 ml Balance -1101.785 ml 1101.55 ml Free Water 180 ml IV Total 628.215 ml 686.55 ml Tube Feeding 300 ml 270 ml Output Urine Total 30 ml 35 ml Hemodialysis UF 2000 ml # Bowel Movements 2 3 Laboratory Tests Test 06/19/19 04:00 White Blood Count 15.0 K/UL (4.8-10.8) H Red Blood Count 2.83 M/UL (4.70-6.10) L Hemoglobin 8.7 G/DL (14.2-18.0) L Hematocrit 26.7 % (42.0-52.0) L Mean Corpuscular Volume 94 FL (80-99) Mean Corpuscular Hemoglobin 30.8 PG (27.0-31.0) Mean Corpuscular Hemoglobin Concent 32.7 G/DL (32.0-36.0) Red Cell Distribution Width 19.3 % (11.6-14.8) H Platelet Count 178 K/UL (150-450) Mean Platelet Volume 8.9 FL (6.5-10.1) Neutrophils (%) (Auto) % (45.0-75.0) Lymphocytes (%) (Auto) % (20.0-45.0) Monocytes (%) (Auto) % (1.0-10.0) Eosinophils (%) (Auto) % (0.0-3.0) Basophils (%) (Auto) % (0.0-2.0) Differential Total Cells Counted 100 Neutrophils % (Manual) 80 % (45-75) H Lymphocytes % (Manual) 7 % (20-45) L Monocytes % (Manual) 13 % (1-10) H Eosinophils % (Manual) 0 % (0-3) Basophils % (Manual) 0 % (0-2) Band Neutrophils 0 % (0-8) Platelet Estimate Adequate Platelet Morphology Normal Hypochromasia 2+ Anisocytosis 2+ Spherocytes 1+ Sodium Level 129 MMOL/L (136-145) L Potassium Level 4.0 MMOL/L (3.5-5.1) Chloride Level 88 MMOL/L (98-107) L Carbon Dioxide Level 26 MMOL/L (21-32) Anion Gap 15 mmol/L (5-15) Blood Urea Nitrogen 54 mg/dL (7-18) H Creatinine 7.5 MG/DL (0.55-1.30) H Estimat Glomerular Filtration Rate 7.3 mL/min (>60) Glucose Level 376 MG/DL (74-106) H Uric Acid 3.8 MG/DL (2.6-7.2) Calcium Level 8.2 MG/DL (8.5-10.1) L Phosphorus Level 7.2 MG/DL (2.5-4.9) H Magnesium Level 2.1 MG/DL (1.8-2.4) Total Bilirubin 0.4 MG/DL (0.2-1.0) Aspartate Amino Transf (AST/SGOT) 20 U/L (15-37) Alanine Aminotransferase (ALT/SGPT) 13 U/L (12-78) Alkaline Phosphatase 85 U/L (46-116) C-Reactive Protein, Quantitative 27.4 mg/dL (0.00-0.90) H Pro-B-Type Natriuretic Peptide > 52790 pg/mL (0-125) H Total Protein 7.7 G/DL (6.4-8.2) Albumin 2.0 G/DL (3.4-5.0) L Globulin 5.7 g/dL Albumin/Globulin Ratio 0.4 (1.0-2.7) L Thyroid Stimulating Hormone (TSH) 3.946 uiU/mL (0.358-3.740) Random Vancomycin Level 17.8 ug/mL Height (Feet): 6 Height (Inches): 1.00 Weight (Pounds): 240 General Appearance: no apparent distress Cardiovascular: normal rate Respiratory/Chest: no respiratory distress Abdominal Exam: normal bowel sounds, non tender, soft Extremities: non-tender Lyle Sanders NP June 19, 2019 16:57
[2019-06-19] MEDS: Norepinephrine Bitartrate 16 MG in D5W 500ml 550 ML IV SCH (17:00)
[2019-06-19] MEDS ORDERED: Sterile Water Irrig 1000ml IRRIG ONE (17:50)
[2019-06-19] MEDS ORDERED: NS 275ml ONE ×2 (17:50→22:50)
[2019-06-19] MEDS: Dyna-Hex 2% Top Sol 2oz TOPIC SCH (20:06)
--- NOTE | 2019-06-19 20:25 | Surgery Progress Note ---
Surgery Progress Note Subjective Procedure Performed Right femoral temporary hemodialysis catheter insertion Additional Comments fi02 40% peep 8 levo at 8 on support Objective Last 24 Hour Vital Signs Date Time Temp Pulse Resp B/P (MAP) Pulse Ox O2 Delivery O2 Flow Rate FiO2 06/19/19 20:00 100.1 78 25 101/47 (65) 100 06/19/19 20:00 78 06/19/19 20:00 40 06/19/19 20:00 Mechanical Ventilator 06/19/19 19:30 75 17 100/52 (68) 100 06/19/19 19:01 76 27 100 Mechanical Ventilator 40 73 26 40 06/19/19 19:00 108/48 06/19/19 19:00 19 Endotracheal Tube 40 06/19/19 19:00 76 19 108/48 (68) 100 06/19/19 18:30 76 18 96/49 (65) 99 06/19/19 18:00 100/47 06/19/19 18:00 20 Endotracheal Tube 40 06/19/19 18:00 76 15 100/47 (64) 99 06/19/19 17:30 77 11 99/53 (68) 99 06/19/19 17:00 92/49 06/19/19 17:00 28 Endotracheal Tube 40 06/19/19 17:00 76 16 93/50 (64) 99 06/19/19 16:30 75 16 92/48 (63) 97 06/19/19 16:00 40 06/19/19 16:00 Mechanical Ventilator 06/19/19 16:00 22 Endotracheal Tube 40 06/19/19 16:00 75 06/19/19 16:00 88 23 107/48 (67) 97 06/19/19 15:30 76 17 121/62 (81) 99 06/19/19 15:11 72 27 40 06/19/19 15:00 18 Endotracheal Tube 40 06/19/19 15:00 72 16 121/61 (81) 100 06/19/19 14:00 24 Endotracheal Tube 40 06/19/19 14:00 73 18 117/60 (79) 100 06/19/19 13:30 78 16 119/67 (84) 100 06/19/19 13:19 14 Endotracheal Tube 70.0 40 06/19/19 13:00 99.5 73 16 119/64 (82) 100 06/19/19 13:00 117/64 06/19/19 12:00 40 06/19/19 12:00 72 14 112/60 (77) 100 06/19/19 12:00 Mechanical Ventilator 06/19/19 12:00 112/60 06/19/19 12:00 73 06/19/19 11:30 79 21 107/63 (78) 100 06/19/19 11:29 75 27 100 Mechanical Ventilator 40 89 28 40 06/19/19 11:00 76 18 97/57 (70) 100 06/19/19 11:00 92/55 06/19/19 10:30 77 19 104/56 (72) 99 06/19/19 10:00 91/55 06/19/19 10:00 19 Endotracheal Tube 40 06/19/19 10:00 79 19 93/55 (68) 98 06/19/19 09:30 85 19 97/61 (73) 99 06/19/19 09:00 100/64 06/19/19 09:00 21 Endotracheal Tube 40 06/19/19 09:00 85 21 109/68 (82) 99 06/19/19 08:30 78 24 106/66 (79) 100 06/19/19 08:00 Mechanical Ventilator 06/19/19 08:00 40 06/19/19 08:00 81 06/19/19 08:00 122/72 06/19/19 08:00 23 Endotracheal Tube 40 06/19/19 08:00 99.4 75 23 107/68 (81) 100 06/19/19 07:34 73 06/19/19 07:29 97.6 06/19/19 07:24 77 29 100 Mechanical Ventilator 40 79 27 40 06/19/19 07:15 74 11 101/64 (76) 100 06/19/19 07:00 75 26 99/58 (72) 100 06/19/19 06:45 86/64 06/19/19 06:30 82 13 93/59 (70) 100 06/19/19 06:00 97.6 85 29 133/80 (97) 100 06/19/19 06:00 133/80 06/19/19 06:00 26 Mechanical Ventilator 40 06/19/19 05:30 90 26 100/63 (75) 99 06/19/19 05:16 20 Mechanical Ventilator 40 06/19/19 05:00 76 20 102/64 (77) 99 06/19/19 05:00 102/64 06/19/19 05:00 26 Mechanical Ventilator 40 06/19/19 04:30 71 21 110/72 (85) 100 06/19/19 04:00 40 06/19/19 04:00 73 28 113/64 (80) 100 06/19/19 04:00 Mechanical Ventilator 06/19/19 04:00 113/64 06/19/19 04:00 26 Mechanical Ventilator 40 06/19/19 04:00 78 06/19/19 03:30 80 24 98/63 (75) 100 06/19/19 03:06 84 26 100 Mechanical Ventilator 40 86 20 40 06/19/19 03:00 92/59 06/19/19 03:00 28 Mechanical Ventilator 40 06/19/19 03:00 97.9 82 31 92/59 (70) 100 06/19/19 02:54 82 15 99/70 (80) 100 06/19/19 02:45 80 1 83/55 (64) 100 06/19/19 02:30 88 23 98/61 (73) 100 06/19/19 02:15 85 32 105/63 (77) 100 06/19/19 02:00 92 28 101/68 (79) 100 06/19/19 02:00 101/68 06/19/19 02:00 26 Mechanical Ventilator 40 06/19/19 01:50 28 Mechanical Ventilator 40 06/19/19 01:45 103 26 129/77 (94) 98 06/19/19 01:40 129/77 06/19/19 01:40 28 Mechanical Ventilator 40 06/19/19 01:30 107 13 114/63 (80) 95 06/19/19 01:30 30 Mechanical Ventilator 40 06/19/19 01:20 130/110 06/19/19 01:20 30 Mechanical Ventilator 40 06/19/19 01:15 114 22 134/120 (125) 97 06/19/19 01:10 32 Mechanical Ventilator 40 06/19/19 01:00 157/82 06/19/19 01:00 32 Mechanical Ventilator 40 06/19/19 01:00 122 15 157/82 (107) 92 06/19/19 00:50 30 Mechanical Ventilator 40 5/9/20 00:45 89 12 122/72 (89) 100 06/19/19 00:40 24 Mechanical Ventilator 40 06/19/19 00:30 29 Mechanical Ventilator 40 06/19/19 00:30 79 23 122/80 (94) 100 06/19/19 00:15 78 17 136/74 (94) 100 06/19/19 00:00 145/73 06/19/19 00:00 28 Mechanical Ventilator 40 06/19/19 00:00 Mechanical Ventilator 06/19/19 00:00 97.6 80 20 145/73 (97) 100 06/18/19 23:30 79 27 128/74 (92) 100 06/18/19 23:00 79 25 131/86 (101) 100 06/18/19 23:00 78 30 100 Mechanical Ventilator 40 78 20 40 06/18/19 23:00 131/86 06/18/19 23:00 25 Mechanical Ventilator 40 06/18/19 22:30 130/74 06/18/19 22:30 86 24 130/74 (92) 100 06/18/19 22:15 110/66 06/18/19 22:00 81 30 115/71 (86) 100 06/18/19 22:00 115/71 06/18/19 22:00 28 Mechanical Ventilator 40 06/18/19 21:48 138/84 06/18/19 21:45 125/70 06/18/19 21:30 134/71 06/18/19 21:30 82 33 134/71 (92) 100 06/18/19 21:15 118/70 06/18/19 21:00 84 28 118/65 (82) 100 06/18/19 21:00 118/65 06/18/19 21:00 26 Mechanical Ventilator 40 06/18/19 20:30 93 25 150/74 (99) 100 I&O Intake and Output 06/18/19 06/19/19 19:00 07:00 Intake Total 928.215 ml 1136.55 ml Output Total 2030 ml 35 ml Balance -1101.785 ml 1101.55 ml Free Water 180 ml IV Total 628.215 ml 686.55 ml Tube Feeding 300 ml 270 ml Output Urine Total 30 ml 35 ml Hemodialysis UF 2000 ml # Bowel Movements 2 3 Dressing: saturated Cardiovascular: RSR Respiratory: decreased breath sounds Abdomen: soft, present bowel sounds Extremities: no cyanosis, other Laboratory Tests Test 06/19/19 04:00 White Blood Count 15.0 K/UL (4.8-10.8) H Red Blood Count 2.83 M/UL (4.70-6.10) L Hemoglobin 8.7 G/DL (14.2-18.0) L Hematocrit 26.7 % (42.0-52.0) L Mean Corpuscular Volume 94 FL (80-99) Mean Corpuscular Hemoglobin 30.8 PG (27.0-31.0) Mean Corpuscular Hemoglobin Concent 32.7 G/DL (32.0-36.0) Red Cell Distribution Width 19.3 % (11.6-14.8) H Platelet Count 178 K/UL (150-450) Mean Platelet Volume 8.9 FL (6.5-10.1) Neutrophils (%) (Auto) % (45.0-75.0) Lymphocytes (%) (Auto) % (20.0-45.0) Monocytes (%) (Auto) % (1.0-10.0) Eosinophils (%) (Auto) % (0.0-3.0) Basophils (%) (Auto) % (0.0-2.0) Differential Total Cells Counted 100 Neutrophils % (Manual) 80 % (45-75) H Lymphocytes % (Manual) 7 % (20-45) L Monocytes % (Manual) 13 % (1-10) H Eosinophils % (Manual) 0 % (0-3) Basophils % (Manual) 0 % (0-2) Band Neutrophils 0 % (0-8) Platelet Estimate Adequate Platelet Morphology Normal Hypochromasia 2+ Anisocytosis 2+ Spherocytes 1+ Sodium Level 129 MMOL/L (136-145) L Potassium Level 4.0 MMOL/L (3.5-5.1) Chloride Level 88 MMOL/L (98-107) L Carbon Dioxide Level 26 MMOL/L (21-32) Anion Gap 15 mmol/L (5-15) Blood Urea Nitrogen 54 mg/dL (7-18) H Creatinine 7.5 MG/DL (0.55-1.30) H Estimat Glomerular Filtration Rate 7.3 mL/min (>60) Glucose Level 376 MG/DL (74-106) H Uric Acid 3.8 MG/DL (2.6-7.2) Calcium Level 8.2 MG/DL (8.5-10.1) L Phosphorus Level 7.2 MG/DL (2.5-4.9) H Magnesium Level 2.1 MG/DL (1.8-2.4) Total Bilirubin 0.4 MG/DL (0.2-1.0) Aspartate Amino Transf (AST/SGOT) 20 U/L (15-37) Alanine Aminotransferase (ALT/SGPT) 13 U/L (12-78) Alkaline Phosphatase 85 U/L (46-116) C-Reactive Protein, Quantitative 27.4 mg/dL (0.00-0.90) H Pro-B-Type Natriuretic Peptide > 85814 pg/mL (0-125) H Total Protein 7.7 G/DL (6.4-8.2) Albumin 2.0 G/DL (3.4-5.0) L Globulin 5.7 g/dL Albumin/Globulin Ratio 0.4 (1.0-2.7) L Thyroid Stimulating Hormone (TSH) 3.946 uiU/mL (0.358-3.740) Random Vancomycin Level 17.8 ug/mL Plan Problems: (1) Suspected COVID-19 virus infection (2) HTN (hypertension) (3) CASSANDRA (acute kidney injury) Assessment & Plan: Needs urgent HD needs access patient okay and consented see note will follow with recs new line placed discussed with team and nephrology HD line functional when checked has TPA now please use appropriately Cathflo used again this flow during dialysis on 430 was low. Will monitor may need line change 5/4 plan for HD as per renal (4) Anemia in chronic kidney disease (CKD) (5) Anemia (6) Renal failure (7) Suspected COVID-19 virus infection (8) COVID-19 Assessment & Plan: COVID + c diff negative febrile leukocytosis renal insufficiency see above cont resp care Rx as per ID worsening on vent support now cxr noted on pressors prognosis patriciaed Yaniv Mast June 19, 2019 20:25
[2019-06-19] MEDS ORDERED: D5W 550ml IV ONE (22:50)
[2019-06-19] MEDS ORDERED: Tubing IV Secondary IV ONE (22:50)
[2019-06-20] VITALS (59 sets, daily range): BP systolic 74–160; BP diastolic 43–90
--- NOTE | 2019-06-20 00:26 | Pulmonolgy Critical Care Note ---
Critical Care - Asmt/Plan Assessment/Plan: Pulmonary CCM Progress Note HPI: Patient is a 68 year old man, [facility] resident, admitted c/o shortness of breath, cough, noted to have Covid 19 Pneumonia, Respiratory Failure S/p intubation, remains on pressors PRN, CXR improving FIO2 40%, adequate O2 sats, improving, remains on AC HD tolerated Hyponatremia improving Anemia stable Seen earlier on 06/19/2019 ID following On HD per Renal Past Medical History: COPD, CKD, Hypertension, Anemia Hypotension requiring pressors, in ICU Persistently elevated WCC Allergies: No Known Allergies Improving Pulmonary Status on HD Physical Exam Vital Signs Noted Sedated on ventilator WDWN, no distress HEENT: NCAT,moist mm Chest: Occasional rhonchi Heart: HS1, HS2, RRR Abdomen: SNTND, no masses Extremities: Well perfused, no edema ER REGISTRAR: No focal signs, no seizures, sedated Impression: COVID-19 virus infection Pneumonia Respiratory failure on ventilator Volume overload improving - on HD Hypotension on pressors Cardiomegaly Lymphopenia Elevated AST COPD Chronic Kidney Disease - HD H/o Hypertension Worsening anemia Plan: Antibiotics per ID HD Pressors PRN ACVC - wean as tolerated once pressors reduced/off ABG PRN 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 Medications 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 Monitor cultures/viral studies PPX Hemodialysis per Renal Psychiatry following [facility] - [facility] requested for when available, [facility] - not available as yet Laboratory Tests Noted: CXR: Hypoventilatory exam, interstitial changes, cardiomegaly, improving infiltrates Subjective ROS Limited/Unobtainable: No Constitutional: Denies: fever Respiratory: Reports: dry cough, shortness of breath Gastrointestinal/Abdominal: Reports: diarrhea, other - colace was stopped Psychiatric: Reports: other - refuses labs Allergies: Coded Allergies: No Known Allergies (Unverified , 05/28/19) All Systems: reviewed and negative except above Labs noted Critical Care - Objective Last 24 Hour Vital Signs Date Time Temp Pulse Resp B/P (MAP) Pulse Ox O2 Delivery O2 Flow Rate FiO2 06/19/19 23:52 100.1 06/19/19 23:13 26 Mechanical Ventilator 40 06/19/19 23:00 86 15 125/65 (85) 100 06/19/19 22:58 81 31 100 Mechanical Ventilator 40 83 30 40 06/19/19 22:30 79 20 128/67 (87) 100 06/19/19 22:00 79 24 117/63 (81) 100 06/19/19 21:30 74 26 115/66 (82) 100 06/19/19 21:00 109/46 06/19/19 21:00 26 Mechanical Ventilator 40 06/19/19 21:00 76 28 116/57 (76) 100 06/19/19 20:30 76 25 101/55 (70) 100 06/19/19 20:00 100.1 78 25 101/47 (65) 100 06/19/19 20:00 78 06/19/19 20:00 114/44 06/19/19 20:00 26 Mechanical Ventilator 40 06/19/19 20:00 40 06/19/19 20:00 Mechanical Ventilator 06/19/19 19:30 75 17 100/52 (68) 100 06/19/19 19:01 76 27 100 Mechanical Ventilator 40 73 26 40 06/19/19 19:00 108/48 06/19/19 19:00 19 Endotracheal Tube 40 06/19/19 19:00 76 19 108/48 (68) 100 06/19/19 18:30 76 18 96/49 (65) 99 06/19/19 18:00 100/47 06/19/19 18:00 20 Endotracheal Tube 40 06/19/19 18:00 76 15 100/47 (64) 99 06/19/19 17:30 77 11 99/53 (68) 99 06/19/19 17:00 92/49 06/19/19 17:00 28 Endotracheal Tube 40 06/19/19 17:00 76 16 93/50 (64) 99 06/19/19 16:30 75 16 92/48 (63) 97 06/19/19 16:00 40 06/19/19 16:00 Mechanical Ventilator 06/19/19 16:00 22 Endotracheal Tube 40 06/19/19 16:00 75 06/19/19 16:00 88 23 107/48 (67) 97 06/19/19 15:30 76 17 121/62 (81) 99 06/19/19 15:11 72 27 40 06/19/19 15:00 18 Endotracheal Tube 40 06/19/19 15:00 72 16 121/61 (81) 100 06/19/19 14:00 24 Endotracheal Tube 40 06/19/19 14:00 73 18 117/60 (79) 100 06/19/19 13:30 78 16 119/67 (84) 100 06/19/19 13:19 14 Endotracheal Tube 70.0 40 06/19/19 13:00 99.5 73 16 119/64 (82) 100 06/19/19 13:00 117/64 06/19/19 12:00 40 06/19/19 12:00 72 14 112/60 (77) 100 06/19/19 12:00 Mechanical Ventilator 06/19/19 12:00 112/60 06/19/19 12:00 73 06/19/19 11:30 79 21 107/63 (78) 100 06/19/19 11:29 75 27 100 Mechanical Ventilator 40 89 28 40 06/19/19 11:00 76 18 97/57 (70) 100 06/19/19 11:00 92/55 06/19/19 10:30 77 19 104/56 (72) 99 06/19/19 10:00 91/55 06/19/19 10:00 19 Endotracheal Tube 40 06/19/19 10:00 79 19 93/55 (68) 98 06/19/19 09:30 85 19 97/61 (73) 99 06/19/19 09:00 100/64 06/19/19 09:00 21 Endotracheal Tube 40 06/19/19 09:00 85 21 109/68 (82) 99 06/19/19 08:30 78 24 106/66 (79) 100 06/19/19 08:00 Mechanical Ventilator 06/19/19 08:00 40 06/19/19 08:00 81 06/19/19 08:00 122/72 06/19/19 08:00 23 Endotracheal Tube 40 06/19/19 08:00 99.4 75 23 107/68 (81) 100 06/19/19 07:34 73 06/19/19 07:24 77 29 100 Mechanical Ventilator 40 79 27 40 06/19/19 07:15 74 11 101/64 (76) 100 06/19/19 07:00 75 26 99/58 (72) 100 06/19/19 06:45 86/64 06/19/19 06:30 82 13 93/59 (70) 100 06/19/19 06:00 97.6 85 29 133/80 (97) 100 06/19/19 06:00 133/80 06/19/19 06:00 26 Mechanical Ventilator 40 06/19/19 05:30 90 26 100/63 (75) 99 06/19/19 05:16 20 Mechanical Ventilator 40 06/19/19 05:00 76 20 102/64 (77) 99 06/19/19 05:00 102/64 06/19/19 05:00 26 Mechanical Ventilator 40 06/19/19 04:30 71 21 110/72 (85) 100 06/19/19 04:00 40 06/19/19 04:00 73 28 113/64 (80) 100 06/19/19 04:00 Mechanical Ventilator 06/19/19 04:00 113/64 06/19/19 04:00 26 Mechanical Ventilator 40 06/19/19 04:00 78 06/19/19 03:30 80 24 98/63 (75) 100 06/19/19 03:06 84 26 100 Mechanical Ventilator 40 86 20 40 06/19/19 03:00 92/59 06/19/19 03:00 28 Mechanical Ventilator 40 06/19/19 03:00 97.9 82 31 92/59 (70) 100 06/19/19 02:54 82 15 99/70 (80) 100 06/19/19 02:45 80 1 83/55 (64) 100 06/19/19 02:30 88 23 98/61 (73) 100 06/19/19 02:15 85 32 105/63 (77) 100 06/19/19 02:00 92 28 101/68 (79) 100 06/19/19 02:00 101/68 06/19/19 02:00 26 Mechanical Ventilator 40 06/19/19 01:50 28 Mechanical Ventilator 40 06/19/19 01:45 103 26 129/77 (94) 98 06/19/19 01:40 129/77 06/19/19 01:40 28 Mechanical Ventilator 40 06/19/19 01:30 107 13 114/63 (80) 95 06/19/19 01:30 30 Mechanical Ventilator 40 06/19/19 01:20 130/110 06/19/19 01:20 30 Mechanical Ventilator 40 06/19/19 01:15 114 22 134/120 (125) 97 06/19/19 01:10 32 Mechanical Ventilator 40 06/19/19 01:00 157/82 06/19/19 01:00 32 Mechanical Ventilator 40 06/19/19 01:00 122 15 157/82 (107) 92 06/19/19 00:50 30 Mechanical Ventilator 40 06/19/19 00:45 89 12 122/72 (89) 100 06/19/19 00:40 24 Mechanical Ventilator 40 06/19/19 00:30 29 Mechanical Ventilator 40 06/19/19 00:30 79 23 122/80 (94) 100 Critical Care - Subjective ROS Limited/Unobtainable: No FI02: 40 Vent Support Breath Rate: 26 Vent Support Mode: AC Vent Tidal Volume: 500 Sputum Amount: Moderate PEEP: 8.0 PIP: 30 Tube Feeding Amount: 10 I&O: Intake and Output 06/19/19 06/20/19 19:00 07:00 Intake Total 993.97 ml 449.96 ml Output Total 30 ml Balance 963.97 ml 449.96 ml Free Water 200 ml 200 ml IV Total 433.97 ml 89.96 ml Tube Feeding 360 ml 40 ml Other 120 ml Output Urine Total 30 ml # Bowel Movements 1 1 ET-Tube: 7.5 ET Position: 24 Arturo Mckeon MD June 20, 2019 00:26
[2019-06-20] MEDS: Albuterol 90mcg Inhaler 8gm INH SCH ×5 (01:40→21:55)
[2019-06-20] MEDS: Piperacillin/Tazobactam 2.25 GM in D5W 55 ML IVPB SCH ×3 (05:44→21:47)
[2019-06-20] MEDS: Renvela 800mg Pkt NG SCH ×4 (05:44→23:33)
[2019-06-20 06:47] LABS: HEMATOCRIT 23.4 % (42.0-52.0); HEMOGLOBIN 7.7 G/DL (14.2-18.0); MEAN CORPUSCULAR VOLUME 94 FL (80-99); PLATELET COUNT 227 K/UL (150-450); RED CELL DISTRIBUTION WIDTH 18.9 % (11.6-14.8); WHITE BLOOD COUNT 15.5 K/UL (4.8-10.8)
[2019-06-20 06:56] LABS: ALANINE AMINOTRANSFERASE 7 U/L (12-78); ALBUMIN 1.7 G/DL (3.4-5.0); ALBUMIN/GLOBULIN RATIO 0.3 (1.0-2.7); ALKALINE PHOSPHATASE 79 U/L (46-116); ANION GAP 18 mmol/L (5-15); ASPARTATE AMINO TRANSFERASE 18 U/L (15-37); BILIRUBIN,TOTAL 0.4 MG/DL (0.2-1.0); BLOOD UREA NITROGEN 64 mg/dL (7-18); CALCIUM 8.3 MG/DL (8.5-10.1); CARBON DIOXIDE 23 MMOL/L (21-32); CHLORIDE 87 MMOL/L (98-107); CREATININE 8.5 MG/DL (0.55-1.30); POTASSIUM 3.8 MMOL/L (3.5-5.1); SODIUM 128 MMOL/L (136-145)
[2019-06-20] MEDS: Pantoprazole Inj IVP SCH (08:04)
[2019-06-20] MEDS: Midodrine 10mg tab NG SCH ×3 (08:04→17:36)
[2019-06-20] MEDS: Docusate 100mg/10ml Liq NG SCH ×3 (08:04→18:17)
[2019-06-20] MEDS: fentaNYL Citrate 2,500 MCG in NS 200 ML IV SCH ×2 (08:04→17:36)
[2019-06-20] MEDS: Enoxaparin 30mg Inj SUBQ SCH (08:05)
[2019-06-20] MEDS: Allopurinol 100mg Tab NG SCH (08:06)
--- NOTE | 2019-06-20 08:59 | Nephrology Progress Note ---
Assessment/Plan Problem List: (1) CASSANDRA (acute kidney injury) (2) Anemia in chronic kidney disease (CKD) (3) HTN (hypertension) (4) COVID-19 Assessment Acute renal failure most likely superimposed on chronic kidney disease Suspected COVID-19 virus infection Possible Pneumonia, lymphopenia, elevated AST Cardiomegaly, possible CHF COPD Hypertension Anemia, most likely related to chronic kidney disease Plan June 19: Discussed with RN. Patient due for dialysis today. Continue pulmonary support. Remains full code. June 18: Patient dialyzed yesterday June 17 Serum sodium improved but still low Arrange for dialysis tomorrow June 19 Continue per consultants June 17: Due for dialysis today Today's lab reviewed, low serum sodium noted, Emphasized on high sodium bath to dialysis nurse Discussed with SHANIQUE Yuen June 16: Dialyzed yesterday Remains intubated Labs reviewed, serum sodium 131 Plan to dialyze tomorrow June 17 with high sodium bath Discussed with SHANIQUE Yuen June 15: Due for dialysis today Labs reviewed Discussed with RN Transfuse 1 unit of packed RBCs today for low hemoglobin of 7.1 June 5: Blood pressure well maintained Receive dialysis June 13 next hemodialysis June 15June 4: Discussed with RN in ICU Patient did not receive proper dialysis yesterday due to dialysis catheter malfunction Catheter to be adjusted today and dialyzed to be resumed today Continue per consultants Positive for COVID 19 June 2: Patient now intubated on mechanical ventilation Discussed with SHANIQUE Yuen, today June 12 Patient received dialysis yesterday June 10 next hemodialysis June 12 Blood pressure better maintained Today's labs reviewed Continue per consultants Previously patient received dialysis last evening June 05, next dialysis June 07 which was incomplete due to patient's hypotension Will start on midodrine for blood pressure support. Meanwhile continue other pressors as needed Previously Patient is doing poorly, septic, white blood cells are rising, Hypotension somewhat improved We will keep n.p.o. , NG tube for medications, and change medication to IV as needed Patient remains full code Monitor vancomycin level Previously: Patient pulled out his femoral catheter yesterday June 03 which was reinserted by Dr. Mast Patient scheduled for dialysis again June 04, which again was not done due to dialysis nurse citing catheter malfunction Meanwhile continue management per ID, pulmonary , and psych. Meanwhile white blood cell count is rising. Patient blood pressure borderline low. Will check ABG Previously May 31 : I believe patient need dialysis treatment He however needs to competency assessment if can make decisions or not I will communicate with Dr. Mulligan Previously: Per pulmonary and ID advice Adjust blood pressure medication Renal diet Anemia work-up 2D echocardiogram refused Kidney ultrasound refused Jules catheter Urine studies Per orders Subjective ROS Limited/Unobtainable: Yes Objective Objective Last 24 Hour Vital Signs Date Time Temp Pulse Resp B/P (MAP) Pulse Ox O2 Delivery O2 Flow Rate FiO2 06/20/19 08:04 25 Endotracheal Tube 70.0 40 06/20/19 07:00 102/65 06/20/19 07:00 72 25 101/53 (69) 100 06/20/19 06:30 72 27 105/61 (76) 100 06/20/19 06:00 94/51 06/20/19 06:00 24 Mechanical Ventilator 40 06/20/19 06:00 74 24 94/51 (65) 100 06/20/19 05:30 64 27 114/59 (77) 100 06/20/19 05:00 101/53 06/20/19 05:00 28 Mechanical Ventilator 40 06/20/19 05:00 65 28 101/53 (69) 100 06/20/19 04:30 74 24 97/48 (64) 100 06/20/19 04:00 40 06/20/19 04:00 72 06/20/19 04:00 76 21 109/53 (71) 100 06/20/19 04:00 109/53 06/20/19 04:00 21 Mechanical Ventilator 40 06/20/19 04:00 Mechanical Ventilator 06/20/19 03:30 79 11 93/55 (68) 100 06/20/19 03:00 112/62 06/20/19 03:00 10 Mechanical Ventilator 40 06/20/19 03:00 87 10 112/62 (79) 100 06/20/19 02:30 103 15 109/55 (73) 97 06/20/19 02:00 109 28 160/90 (113) 98 06/20/19 02:00 160/90 06/20/19 02:00 28 Mechanical Ventilator 40 06/20/19 01:41 85 30 40 06/20/19 01:30 86 17 111/68 (82) 100 06/20/19 01:00 83 25 140/71 (94) 99 06/20/19 01:00 140/70 06/20/19 01:00 25 Mechanical Ventilator 40 06/20/19 00:45 124/74 06/20/19 00:30 119/67 06/20/19 00:30 89 25 119/67 (84) 100 06/20/19 00:15 126/68 06/20/19 00:00 97.6 89 23 132/69 (90) 100 06/20/19 00:00 132/69 06/20/19 00:00 23 Mechanical Ventilator 40 06/20/19 00:00 Mechanical Ventilator 06/19/19 23:52 100.1 06/19/19 23:30 90 24 125/73 (90) 100 06/19/19 23:13 26 Mechanical Ventilator 40 06/19/19 23:00 86 15 125/65 (85) 100 06/19/19 23:00 125/65 06/19/19 23:00 15 Mechanical Ventilator 40 06/19/19 22:58 81 31 100 Mechanical Ventilator 40 83 30 40 06/19/19 22:30 79 20 128/67 (87) 100 06/19/19 22:00 117/63 06/19/19 22:00 24 Mechanical Ventilator 40 06/19/19 22:00 79 24 117/63 (81) 100 06/19/19 21:30 74 26 115/66 (82) 100 06/19/19 21:00 109/46 06/19/19 21:00 26 Mechanical Ventilator 40 06/19/19 21:00 76 28 116/57 (76) 100 06/19/19 20:30 76 25 101/55 (70) 100 06/19/19 20:00 100.1 78 25 101/47 (65) 100 06/19/19 20:00 78 06/19/19 20:00 114/44 06/19/19 20:00 26 Mechanical Ventilator 40 06/19/19 20:00 40 06/19/19 20:00 Mechanical Ventilator 06/19/19 19:30 75 17 100/52 (68) 100 06/19/19 19:01 76 27 100 Mechanical Ventilator 40 73 26 40 06/19/19 19:00 108/48 06/19/19 19:00 19 Endotracheal Tube 40 06/19/19 19:00 76 19 108/48 (68) 100 06/19/19 18:30 76 18 96/49 (65) 99 06/19/19 18:00 100/47 06/19/19 18:00 20 Endotracheal Tube 40 06/19/19 18:00 76 15 100/47 (64) 99 06/19/19 17:30 77 11 99/53 (68) 99 06/19/19 17:00 92/49 06/19/19 17:00 28 Endotracheal Tube 40 06/19/19 17:00 76 16 93/50 (64) 99 06/19/19 16:30 75 16 92/48 (63) 97 06/19/19 16:00 40 06/19/19 16:00 Mechanical Ventilator 06/19/19 16:00 22 Endotracheal Tube 40 06/19/19 16:00 75 06/19/19 16:00 88 23 107/48 (67) 97 06/19/19 15:30 76 17 121/62 (81) 99 06/19/19 15:11 72 27 40 06/19/19 15:00 18 Endotracheal Tube 40 06/19/19 15:00 72 16 121/61 (81) 100 06/19/19 14:00 24 Endotracheal Tube 40 06/19/19 14:00 73 18 117/60 (79) 100 06/19/19 13:30 78 16 119/67 (84) 100 06/19/19 13:19 14 Endotracheal Tube 70.0 40 06/19/19 13:00 99.5 73 16 119/64 (82) 100 06/19/19 13:00 117/64 06/19/19 12:00 40 06/19/19 12:00 72 14 112/60 (77) 100 06/19/19 12:00 Mechanical Ventilator 06/19/19 12:00 112/60 06/19/19 12:00 73 06/19/19 11:30 79 21 107/63 (78) 100 06/19/19 11:29 75 27 100 Mechanical Ventilator 40 89 28 40 06/19/19 11:00 76 18 97/57 (70) 100 06/19/19 11:00 92/55 06/19/19 10:30 77 19 104/56 (72) 99 06/19/19 10:00 91/55 06/19/19 10:00 19 Endotracheal Tube 40 06/19/19 10:00 79 19 93/55 (68) 98 06/19/19 09:30 85 19 97/61 (73) 99 06/19/19 09:00 100/64 06/19/19 09:00 21 Endotracheal Tube 40 06/19/19 09:00 85 21 109/68 (82) 99 Intake and Output 06/19/19 06/20/19 19:00 07:00 Intake Total 993.97 ml 1070.20 ml Output Total 30 ml Balance 963.97 ml 1070.20 ml Free Water 200 ml 200 ml IV Total 433.97 ml 630.20 ml Tube Feeding 360 ml 120 ml Other 120 ml Output Urine Total 30 ml # Bowel Movements 1 4 Laboratory Tests 06/20/19 06:00: White Blood Count 15.5H, Red Blood Count 2.50L, Hemoglobin 7.7L, Hematocrit 23.4L, Mean Corpuscular Volume 94, Mean Corpuscular Hemoglobin 30.6, Mean Corpuscular Hemoglobin Concent 32.7, Red Cell Distribution Width 18.9H, Platelet Count 227, Mean Platelet Volume 7.7, Neutrophils (%) (Auto) , Lymphocytes (%) (Auto) , Monocytes (%) (Auto) , Eosinophils (%) (Auto) , Basophils (%) (Auto) , Neutrophils % (Manual) [Pending], Lymphocytes % (Manual) [Pending], Platelet Estimate [Pending], Platelet Morphology [Pending], Sodium Level 128L, Potassium Level 3.8, Chloride Level 87L, Carbon Dioxide Level 23, Anion Gap 18H, Blood Urea Nitrogen 64H, Creatinine 8.5H, Estimat Glomerular Filtration Rate 6.3, Glucose Level 325H, Calcium Level 8.3L, Phosphorus Level 7.0H, Magnesium Level 2.1, Total Bilirubin 0.4, Aspartate Amino Transf (AST/SGOT ) 18, Alanine Aminotransferase (ALT/SGPT) 7L, Alkaline Phosphatase 79, Total Protein 7.3, Albumin 1.7L, Globulin 5.6, Albumin/Globulin Ratio 0.3L Height (Feet): 6 Height (Inches): 1.00 Weight (Pounds): 242 General Appearance: no apparent distress Cardiovascular: normal rate Respiratory/Chest: decreased breath sounds Abdomen: distended Objective No change Mic Cole MD June 20, 2019 08:59
--- NOTE | 2019-06-20 10:41 | Infectious Diseases Prog Note ---
Assessment/Plan Assessment/Plan IMPRESSION: 1. COVID19 pneumonia Positive: 05/27, 05/31 , 06/05, 06/09 & 06/17 2. MRSA carrier. 3. Chronic kidney disease , end-stage renal disease. 4. COPD. 5. Hypertension. 6. Anemia. 7. Hypothyroidism. 8. Hyperlipidemia. 9. Major depression. 10. Leukocytosis 11. Hypotension 12. Hepatitis C 13. Hyperuricemia 14. Diarrhea 15. septic shock 16. Leukocytosis RECOMMENDATIONS: Continue Zosyn Repeat CXR shows slight improvement Finished hydroxychloroquine. Will f/u COVID19 test Subjective ROS Limited/Unobtainable: Yes Constitutional: Reports: fever, other - Uv=591.1 Cardiovascular: Reports: other - on Levophed Allergies: Coded Allergies: No Known Allergies (Unverified , 05/28/19) Objective Vital Signs Last 24 Hour Vital Signs Date Time Temp Pulse Resp B/P (MAP) Pulse Ox O2 Delivery O2 Flow Rate FiO2 06/20/19 09:30 75 26 98/51 (67) 98 06/20/19 09:00 80 26 104/50 (68) 98 06/20/19 09:00 26 Endotracheal Tube 40 06/20/19 09:00 103/52 06/20/19 08:30 82 21 94/75 (81) 99 06/20/19 08:04 25 Endotracheal Tube 70.0 40 06/20/19 08:00 99.0 73 28 105/53 (70) 100 06/20/19 08:00 Mechanical Ventilator 06/20/19 08:00 74 06/20/19 08:00 105/55 06/20/19 08:00 40 06/20/19 07:00 102/65 06/20/19 07:00 72 25 101/53 (69) 100 06/20/19 06:30 72 27 105/61 (76) 100 06/20/19 06:00 94/51 06/20/19 06:00 24 Mechanical Ventilator 40 06/20/19 06:00 74 24 94/51 (65) 100 06/20/19 05:30 64 27 114/59 (77) 100 06/20/19 05:00 101/53 06/20/19 05:00 28 Mechanical Ventilator 40 06/20/19 05:00 65 28 101/53 (69) 100 06/20/19 04:30 74 24 97/48 (64) 100 06/20/19 04:00 40 06/20/19 04:00 72 06/20/19 04:00 76 21 109/53 (71) 100 06/20/19 04:00 109/53 06/20/19 04:00 21 Mechanical Ventilator 40 06/20/19 04:00 Mechanical Ventilator 06/20/19 03:30 79 11 93/55 (68) 100 06/20/19 03:00 112/62 06/20/19 03:00 10 Mechanical Ventilator 40 06/20/19 03:00 87 10 112/62 (79) 100 06/20/19 02:30 103 15 109/55 (73) 97 06/20/19 02:00 109 28 160/90 (113) 98 06/20/19 02:00 160/90 06/20/19 02:00 28 Mechanical Ventilator 40 06/20/19 01:41 85 30 40 06/20/19 01:30 86 17 111/68 (82) 100 06/20/19 01:00 83 25 140/71 (94) 99 06/20/19 01:00 140/70 06/20/19 01:00 25 Mechanical Ventilator 40 06/20/19 00:45 124/74 06/20/19 00:30 119/67 06/20/19 00:30 89 25 119/67 (84) 100 06/20/19 00:15 126/68 06/20/19 00:00 97.6 89 23 132/69 (90) 100 06/20/19 00:00 132/69 06/20/19 00:00 23 Mechanical Ventilator 40 06/20/19 00:00 Mechanical Ventilator 06/19/19 23:52 100.1 06/19/19 23:30 90 24 125/73 (90) 100 06/19/19 23:13 26 Mechanical Ventilator 40 06/19/19 23:00 86 15 125/65 (85) 100 06/19/19 23:00 125/65 06/19/19 23:00 15 Mechanical Ventilator 40 06/19/19 22:58 81 31 100 Mechanical Ventilator 40 83 30 40 06/19/19 22:30 79 20 128/67 (87) 100 06/19/19 22:00 117/63 5/9/20 22:00 24 Mechanical Ventilator 40 06/19/19 22:00 79 24 117/63 (81) 100 06/19/19 21:30 74 26 115/66 (82) 100 06/19/19 21:00 109/46 06/19/19 21:00 26 Mechanical Ventilator 40 06/19/19 21:00 76 28 116/57 (76) 100 06/19/19 20:30 76 25 101/55 (70) 100 06/19/19 20:00 100.1 78 25 101/47 (65) 100 06/19/19 20:00 78 06/19/19 20:00 114/44 06/19/19 20:00 26 Mechanical Ventilator 40 06/19/19 20:00 40 06/19/19 20:00 Mechanical Ventilator 06/19/19 19:30 75 17 100/52 (68) 100 06/19/19 19:01 76 27 100 Mechanical Ventilator 40 73 26 40 06/19/19 19:00 108/48 06/19/19 19:00 19 Endotracheal Tube 40 06/19/19 19:00 76 19 108/48 (68) 100 06/19/19 18:30 76 18 96/49 (65) 99 06/19/19 18:00 100/47 06/19/19 18:00 20 Endotracheal Tube 40 06/19/19 18:00 76 15 100/47 (64) 99 06/19/19 17:30 77 11 99/53 (68) 99 06/19/19 17:00 92/49 06/19/19 17:00 28 Endotracheal Tube 40 06/19/19 17:00 76 16 93/50 (64) 99 06/19/19 16:30 75 16 92/48 (63) 97 06/19/19 16:00 40 06/19/19 16:00 Mechanical Ventilator 06/19/19 16:00 22 Endotracheal Tube 40 06/19/19 16:00 75 06/19/19 16:00 88 23 107/48 (67) 97 06/19/19 15:30 76 17 121/62 (81) 99 06/19/19 15:11 72 27 40 06/19/19 15:00 18 Endotracheal Tube 40 06/19/19 15:00 72 16 121/61 (81) 100 06/19/19 14:00 24 Endotracheal Tube 40 06/19/19 14:00 73 18 117/60 (79) 100 06/19/19 13:30 78 16 119/67 (84) 100 06/19/19 13:19 14 Endotracheal Tube 70.0 40 06/19/19 13:00 99.5 73 16 119/64 (82) 100 06/19/19 13:00 117/64 06/19/19 12:00 40 06/19/19 12:00 72 14 112/60 (77) 100 06/19/19 12:00 Mechanical Ventilator 06/19/19 12:00 112/60 06/19/19 12:00 73 06/19/19 11:30 79 21 107/63 (78) 100 06/19/19 11:29 75 27 100 Mechanical Ventilator 40 89 28 40 06/19/19 11:00 76 18 97/57 (70) 100 06/19/19 11:00 92/55 Height (Feet): 6 Height (Inches): 1.00 Weight (Pounds): 242 HEENT: mucous membranes moist, other - Orally intubated Respiratory/Chest: other - on Ventilator, FIO2=40% Cardiovascular: normal rate, other - left subclavian line Abdomen: soft, non tender, other - NG tube Extremities: no edema Neurologic/Psychiatric: other - sedated Microbiology Date/Time Source Procedure Growth Status 06/18/19 13:32 Nasopharynx Coronavirus COVID-19 PCR ([facility]) - Final Complete Laboratory Tests Test 06/20/19 06:00 White Blood Count 15.5 K/UL (4.8-10.8) H Red Blood Count 2.50 M/UL (4.70-6.10) L Hemoglobin 7.7 G/DL (14.2-18.0) L Hematocrit 23.4 % (42.0-52.0) L Mean Corpuscular Volume 94 FL (80-99) Mean Corpuscular Hemoglobin 30.6 PG (27.0-31.0) Mean Corpuscular Hemoglobin Concent 32.7 G/DL (32.0-36.0) Red Cell Distribution Width 18.9 % (11.6-14.8) H Platelet Count 227 K/UL (150-450) Mean Platelet Volume 7.7 FL (6.5-10.1) Neutrophils (%) (Auto) % (45.0-75.0) Lymphocytes (%) (Auto) % (20.0-45.0) Monocytes (%) (Auto) % (1.0-10.0) Eosinophils (%) (Auto) % (0.0-3.0) Basophils (%) (Auto) % (0.0-2.0) Differential Total Cells Counted 100 Neutrophils % (Manual) 94 % (45-75) H Lymphocytes % (Manual) 2 % (20-45) L Monocytes % (Manual) 4 % (1-10) Eosinophils % (Manual) 0 % (0-3) Basophils % (Manual) 0 % (0-2) Band Neutrophils 0 % (0-8) Platelet Estimate Adequate Platelet Morphology Normal Polychromasia 1+ Anisocytosis 1+ Sodium Level 128 MMOL/L (136-145) L Potassium Level 3.8 MMOL/L (3.5-5.1) Chloride Level 87 MMOL/L (98-107) L Carbon Dioxide Level 23 MMOL/L (21-32) Anion Gap 18 mmol/L (5-15) H Blood Urea Nitrogen 64 mg/dL (7-18) H Creatinine 8.5 MG/DL (0.55-1.30) H Estimat Glomerular Filtration Rate 6.3 mL/min (>60) Glucose Level 325 MG/DL (74-106) H Calcium Level 8.3 MG/DL (8.5-10.1) L Phosphorus Level 7.0 MG/DL (2.5-4.9) H Magnesium Level 2.1 MG/DL (1.8-2.4) Total Bilirubin 0.4 MG/DL (0.2-1.0) Aspartate Amino Transf (AST/SGOT) 18 U/L (15-37) Alanine Aminotransferase (ALT/SGPT) 7 U/L (12-78) L Alkaline Phosphatase 79 U/L (46-116) Total Protein 7.3 G/DL (6.4-8.2) Albumin 1.7 G/DL (3.4-5.0) L Globulin 5.6 g/dL Albumin/Globulin Ratio 0.3 (1.0-2.7) L Current Medications Medications (Trade) Dose Ordered Sig/Anthony Route PRN Reason Start Time Stop Time Status Last Admin Dose Admin Acetaminophen (Tylenol) 650 mg Q4H PRN NG Temp >100.5 06/13/19 11:00 07/13/19 10:59 06/17/19 17:14 Albuterol Sulfate (Proventil MDI) 2 puff Q4HRT INH 06/06/19 23:00 08/30/19 18:59 06/20/19 07:10 Allopurinol (Zyloprim) 200 mg DAILY NG 06/20/19 09:00 07/08/19 09:29 06/20/19 08:06 Chlorhexidine Gluconate (Michelle-Hex 2%) 1 applic DAILY@2000 TOPIC 06/07/19 20:00 09/05/19 19:59 06/19/19 20:06 Docusate Sodium (Colace) 100 mg THREE TIMES A DAY NG 06/07/19 13:00 07/07/19 12:59 06/20/19 08:04 Dopamine HCl/ Dextrose 250 ml @ 0 mls/hr Q24H PRN IV For hypotension 06/13/19 08:15 09/11/19 08:14 Enoxaparin Sodium (Lovenox) 30 mg DAILY SUBQ 06/07/19 09:00 08/27/19 08:59 06/20/19 08:05 Epoetin Aftab (Epoetin Aftab(ESRD on dialysis)) 10,000 unit FRI-FRI-FRI SUBQ 06/07/19 21:00 08/31/19 20:59 06/18/19 21:46 Fentanyl Citrate 2500 mcg/Sodium Chloride 250 ml @ 0 mls/hr Q24H IV 06/20/19 07:45 06/27/19 07:44 06/20/19 08:04 Hydralazine HCl (Apresoline) 10 mg Q4H PRN IV Blood pressure over 160 systol 06/07/19 10:15 09/05/19 10:14 Metoclopramide HCl (Reglan) 5 mg Q8H PRN IVP Nausea & Vomiting 06/18/19 12:00 07/18/19 11:59 06/19/19 00:50 Midodrine (Pro-Amatine) 10 mg THREE TIMES A DAY NG 06/09/19 13:00 09/07/19 12:59 06/20/19 08:04 Norepinephrine Bitartrate 16 mg/ Dextrose 566 ml @ 0 mls/hr Q24H IV 06/13/19 09:45 07/13/19 09:44 06/19/19 17:00 Pantoprazole (Protonix) 40 mg DAILY IVP 06/19/19 09:00 07/19/19 08:59 06/20/19 08:04 Piperacillin Sod/ Tazobactam Sod 2.25 gm/Dextrose 55 ml @ 110 mls/hr Q8HR IVPB 06/13/19 14:00 06/23/19 13:59 06/20/19 05:44 Sevelamer Carbonate (Renvela) 1,600 mg Q6HR NG 06/14/19 12:00 09/05/19 12:59 06/20/19 05:44 Vancomycin HCl (Vanco rx to dose) 1 ea DAILY PRN MISC Per rx protocol 06/13/19 11:45 07/13/19 11:44 Vasopressin 100 units/Sodium Chloride 100 ml @ 0 mls/hr Q24H IV 06/12/19 11:00 07/12/19 10:59 06/15/19 11:08 Ted Leyva MD June 20, 2019 10:41
[2019-06-20] MEDS: Vasopressin 100 UNITS in NS 95 ML IV SCH (11:00)
--- NOTE | 2019-06-20 12:47 | Hematology/Onc Progress Note ---
Assessment/Plan Assessment/Plan Assessment and Recs: # Anemia of chronic disease, likely related ot underlying kidney disease has COIVD19++ --> hgb trend 9-->8-->7.3-->7.9-->6.8->9.5-->10->8.3-->7.7-->7.1-->8.9->8.8->7.7 --> transfuse as needed, hgb goal >7 --> no evidence of hemolysis --> peripheral smear has been reviewed --> epogen started three x a week ==>> transfuse w 2 units 06/08, 06/15, # Leukocytosis likely related to suspected COVID-19 virus infection --> completed plaquenil --> trend smear as needed --> initially 4-->11-->14.5-->21-->26-->21->24--.28-->23-->19-->16.2-->21 --> pulm is aware --> on abx cefepime/vanc->zosyn/vanc --> pressors as needed # Thrombocytopenia/Lymphopenia --> likely related to covid19 --> plt 129k-->186k # Respiratory failure with covid19+ --> s/p vent # Possible Pneumonia --> abx given --> on zosyn and vanc # Cardiomegaly # Transaminitis with Elevated AST # COPD # Chronic Kidney Disease --> per renal hd # Hypertension # Dvt ppx lovenox Appreciate consultation and ernesto Rn Subjective Allergies: Coded Allergies: No Known Allergies (Unverified , 05/28/19) All Systems: reviewed and negative except above Subjective 06/01 nv, extremely agitated, not allowing labs draws, no night sweats, cbc ordered 06/02 confused, restraints, on abx and plaquenil, hgb 7.9, nrb 15 L 06/03 is with nonrebreather, but not compliant, remains confused 06/05 no bleeding, labs noted, no major bleeding, otherwise comfortable 06/06 labs reviewed, no bleeding, meds noted, no night sweats, on levo and nonrebreather 06/07 labs noted, no bleeding, meds reviewed, no bleeding, wbc higher 06/08 to get 2 units prbc, no night sweats, meds reviewed 06/09 is on cefepime and vanc, labs noted, ernesto Rn, no bleeding 06/10 no major changes, labs reviewed, wbc 28k, on abx, cefepime 06/12 remains in icu, labs noted, no night sweats or bleeding 06/13 sluggish pupils, remains agitated, per psych, no bleding, on vent, wbc sitll high 06/14 still confused, remains on vent, with ng, running nepro, on pressors 06/15 icu, febrile, non verbal, hgb 7.1, blood pending, completed plaq 06/16 remains in the icu, nonverbal, plan for hd tomorrow, ernesto rn 06/17 in icu, on pressor, nonverbal, on abx, no bleeding 06/19 no bleeding, nonverbal in icu, hgb is 7.7 Objective Objective Current Medications Medications (Trade) Dose Ordered Sig/Anthony Route PRN Reason Start Time Stop Time Status Last Admin Dose Admin Acetaminophen (Tylenol) 650 mg Q4H PRN NG Temp >100.5 06/13/19 11:00 07/13/19 10:59 06/17/19 17:14 Albuterol Sulfate (Proventil MDI) 2 puff Q4HRT INH 06/06/19 23:00 08/30/19 18:59 06/20/19 11:23 Allopurinol (Zyloprim) 200 mg DAILY NG 06/20/19 09:00 07/08/19 09:29 06/20/19 08:06 Chlorhexidine Gluconate (Michelle-Hex 2%) 1 applic DAILY@2000 TOPIC 06/07/19 20:00 09/05/19 19:59 06/19/19 20:06 Docusate Sodium (Colace) 100 mg THREE TIMES A DAY NG 06/07/19 13:00 07/07/19 12:59 06/20/19 08:04 Dopamine HCl/ Dextrose 250 ml @ 0 mls/hr Q24H PRN IV For hypotension 06/13/19 08:15 09/11/19 08:14 Enoxaparin Sodium (Lovenox) 30 mg DAILY SUBQ 06/07/19 09:00 7/17/20 08:59 06/20/19 08:05 Epoetin Aftab (Epoetin Aftab(ESRD on dialysis)) 10,000 unit FRI- SUBQ 06/07/19 21:00 08/31/19 20:59 06/18/19 21:46 Fentanyl Citrate 2500 mcg/Sodium Chloride 250 ml @ 0 mls/hr Q24H IV 06/20/19 07:45 06/27/19 07:44 06/20/19 08:04 Hydralazine HCl (Apresoline) 10 mg Q4H PRN IV Blood pressure over 160 systol 06/07/19 10:15 09/05/19 10:14 Metoclopramide HCl (Reglan) 5 mg Q8H PRN IVP Nausea & Vomiting 06/18/19 12:00 07/18/19 11:59 06/19/19 00:50 Midodrine (Pro-Amatine) 10 mg THREE TIMES A DAY NG 06/09/19 13:00 09/07/19 12:59 06/20/19 08:04 Norepinephrine Bitartrate 16 mg/ Dextrose 566 ml @ 0 mls/hr Q24H IV 06/13/19 09:45 07/13/19 09:44 06/19/19 17:00 Pantoprazole (Protonix) 40 mg DAILY IVP 06/19/19 09:00 07/19/19 08:59 06/20/19 08:04 Piperacillin Sod/ Tazobactam Sod 2.25 gm/Dextrose 55 ml @ 110 mls/hr Q8HR IVPB 06/13/19 14:00 06/23/19 13:59 06/20/19 05:44 Sevelamer Carbonate (Renvela) 1,600 mg Q6HR NG 06/14/19 12:00 09/05/19 12:59 06/20/19 12:02 Vancomycin HCl (Vanco rx to dose) 1 ea DAILY PRN MISC Per rx protocol 06/13/19 11:45 07/13/19 11:44 Vasopressin 100 units/Sodium Chloride 100 ml @ 0 mls/hr Q24H IV 06/12/19 11:00 07/12/19 10:59 06/15/19 11:08 Last 24 Hour Vital Signs Date Time Temp Pulse Resp B/P (MAP) Pulse Ox O2 Delivery O2 Flow Rate FiO2 5/10/20 12:30 74 26 104/51 (68) 98 06/20/19 12:00 73 17 92/53 (66) 98 06/20/19 12:00 75 06/20/19 11:30 74 15 94/45 (61) 99 06/20/19 11:05 76 27 98 Mechanical Ventilator 40 76 27 40 06/20/19 11:00 80 36 106/52 (70) 98 06/20/19 11:00 102/52 06/20/19 10:30 84 20 102/52 (69) 98 06/20/19 10:00 25 Endotracheal Tube 40 06/20/19 10:00 95/54 06/20/19 10:00 79 26 97/52 (67) 98 06/20/19 09:30 75 26 98/51 (67) 98 06/20/19 09:00 80 26 104/50 (68) 98 06/20/19 09:00 26 Endotracheal Tube 40 06/20/19 09:00 103/52 06/20/19 08:30 82 21 94/75 (81) 99 06/20/19 08:04 25 Endotracheal Tube 70.0 40 06/20/19 08:00 99.0 73 28 105/53 (70) 100 06/20/19 08:00 Mechanical Ventilator 06/20/19 08:00 74 06/20/19 08:00 105/55 06/20/19 08:00 40 06/20/19 07:15 73 26 100 Mechanical Ventilator 40 73 26 40 06/20/19 07:00 102/65 06/20/19 07:00 72 25 101/53 (69) 100 06/20/19 06:30 72 27 105/61 (76) 100 06/20/19 06:00 94/51 06/20/19 06:00 24 Mechanical Ventilator 40 06/20/19 06:00 74 24 94/51 (65) 100 06/20/19 05:30 64 27 114/59 (77) 100 06/20/19 05:00 101/53 06/20/19 05:00 28 Mechanical Ventilator 40 06/20/19 05:00 65 28 101/53 (69) 100 06/20/19 04:30 74 24 97/48 (64) 100 06/20/19 04:00 40 06/20/19 04:00 72 06/20/19 04:00 76 21 109/53 (71) 100 06/20/19 04:00 109/53 06/20/19 04:00 21 Mechanical Ventilator 40 06/20/19 04:00 Mechanical Ventilator 06/20/19 03:30 79 11 93/55 (68) 100 06/20/19 03:00 112/62 06/20/19 03:00 10 Mechanical Ventilator 40 06/20/19 03:00 87 10 112/62 (79) 100 06/20/19 02:30 103 15 109/55 (73) 97 06/20/19 02:00 109 28 160/90 (113) 98 06/20/19 02:00 160/90 06/20/19 02:00 28 Mechanical Ventilator 40 06/20/19 01:41 85 30 40 06/20/19 01:30 86 17 111/68 (82) 100 06/20/19 01:00 83 25 140/71 (94) 99 06/20/19 01:00 140/70 06/20/19 01:00 25 Mechanical Ventilator 40 06/20/19 00:45 124/74 06/20/19 00:30 119/67 06/20/19 00:30 89 25 119/67 (84) 100 06/20/19 00:15 126/68 06/20/19 00:00 97.6 89 23 132/69 (90) 100 06/20/19 00:00 132/69 06/20/19 00:00 23 Mechanical Ventilator 40 06/20/19 00:00 Mechanical Ventilator 06/19/19 23:52 100.1 06/19/19 23:30 90 24 125/73 (90) 100 06/19/19 23:13 26 Mechanical Ventilator 40 06/19/19 23:00 86 15 125/65 (85) 100 06/19/19 23:00 125/65 06/19/19 23:00 15 Mechanical Ventilator 40 06/19/19 22:58 81 31 100 Mechanical Ventilator 40 83 30 40 06/19/19 22:30 79 20 128/67 (87) 100 06/19/19 22:00 117/63 06/19/19 22:00 24 Mechanical Ventilator 40 06/19/19 22:00 79 24 117/63 (81) 100 06/19/19 21:30 74 26 115/66 (82) 100 06/19/19 21:00 109/46 06/19/19 21:00 26 Mechanical Ventilator 40 06/19/19 21:00 76 28 116/57 (76) 100 06/19/19 20:30 76 25 101/55 (70) 100 06/19/19 20:00 100.1 78 25 101/47 (65) 100 06/19/19 20:00 78 06/19/19 20:00 114/44 06/19/19 20:00 26 Mechanical Ventilator 40 06/19/19 20:00 40 06/19/19 20:00 Mechanical Ventilator 06/19/19 19:30 75 17 100/52 (68) 100 06/19/19 19:01 76 27 100 Mechanical Ventilator 40 73 26 40 06/19/19 19:00 108/48 06/19/19 19:00 19 Endotracheal Tube 40 06/19/19 19:00 76 19 108/48 (68) 100 06/19/19 18:30 76 18 96/49 (65) 99 06/19/19 18:00 100/47 06/19/19 18:00 20 Endotracheal Tube 40 06/19/19 18:00 76 15 100/47 (64) 99 06/19/19 17:30 77 11 99/53 (68) 99 06/19/19 17:00 92/49 06/19/19 17:00 28 Endotracheal Tube 40 06/19/19 17:00 76 16 93/50 (64) 99 06/19/19 16:30 75 16 92/48 (63) 97 06/19/19 16:00 40 06/19/19 16:00 Mechanical Ventilator 06/19/19 16:00 22 Endotracheal Tube 40 06/19/19 16:00 75 06/19/19 16:00 88 23 107/48 (67) 97 06/19/19 15:30 76 17 121/62 (81) 99 06/19/19 15:11 72 27 40 06/19/19 15:00 18 Endotracheal Tube 40 06/19/19 15:00 72 16 121/61 (81) 100 06/19/19 14:00 24 Endotracheal Tube 40 06/19/19 14:00 73 18 117/60 (79) 100 06/19/19 13:30 78 16 119/67 (84) 100 06/19/19 13:19 14 Endotracheal Tube 70.0 40 06/19/19 13:00 99.5 73 16 119/64 (82) 100 06/19/19 13:00 117/64 06/19/19 12:00 40 06/19/19 12:00 72 14 112/60 (77) 100 06/19/19 12:00 Mechanical Ventilator 06/19/19 12:00 112/60 06/19/19 12:00 73 06/19/19 11:30 79 21 107/63 (78) 100 06/19/19 11:29 75 27 100 Mechanical Ventilator 40 89 28 40 06/19/19 11:00 76 18 97/57 (70) 100 06/19/19 11:00 92/55 06/19/19 10:30 77 19 104/56 (72) 99 06/19/19 10:00 91/55 06/19/19 10:00 19 Endotracheal Tube 40 06/19/19 10:00 79 19 93/55 (68) 98 06/19/19 09:30 85 19 97/61 (73) 99 06/19/19 09:00 100/64 06/19/19 09:00 21 Endotracheal Tube 40 06/19/19 09:00 85 21 109/68 (82) 99 06/19/19 08:30 78 24 106/66 (79) 100 06/19/19 08:00 Mechanical Ventilator 06/19/19 08:00 40 06/19/19 08:00 81 06/19/19 08:00 122/72 06/19/19 08:00 23 Endotracheal Tube 40 06/19/19 08:00 99.4 75 23 107/68 (81) 100 06/19/19 07:34 73 06/19/19 07:24 77 29 100 Mechanical Ventilator 40 79 27 40 06/19/19 07:15 74 11 101/64 (76) 100 06/19/19 07:00 75 26 99/58 (72) 100 06/19/19 06:45 86/64 06/19/19 06:30 82 13 93/59 (70) 100 06/19/19 06:00 97.6 85 29 133/80 (97) 100 06/19/19 06:00 133/80 06/19/19 06:00 26 Mechanical Ventilator 40 06/19/19 05:30 90 26 100/63 (75) 99 06/19/19 05:16 20 Mechanical Ventilator 40 06/19/19 05:00 76 20 102/64 (77) 99 06/19/19 05:00 102/64 06/19/19 05:00 26 Mechanical Ventilator 40 06/19/19 04:30 71 21 110/72 (85) 100 06/19/19 04:00 40 06/19/19 04:00 73 28 113/64 (80) 100 06/19/19 04:00 Mechanical Ventilator 06/19/19 04:00 113/64 06/19/19 04:00 26 Mechanical Ventilator 40 06/19/19 04:00 78 06/19/19 03:30 80 24 98/63 (75) 100 06/19/19 03:06 84 26 100 Mechanical Ventilator 40 86 20 40 06/19/19 03:00 92/59 06/19/19 03:00 28 Mechanical Ventilator 40 06/19/19 03:00 97.9 82 31 92/59 (70) 100 06/19/19 02:54 82 15 99/70 (80) 100 06/19/19 02:45 80 1 83/55 (64) 100 06/19/19 02:30 88 23 98/61 (73) 100 06/19/19 02:15 85 32 105/63 (77) 100 06/19/19 02:00 92 28 101/68 (79) 100 06/19/19 02:00 101/68 06/19/19 02:00 26 Mechanical Ventilator 40 06/19/19 01:50 28 Mechanical Ventilator 40 06/19/19 01:45 103 26 129/77 (94) 98 06/19/19 01:40 129/77 06/19/19 01:40 28 Mechanical Ventilator 40 06/19/19 01:30 107 13 114/63 (80) 95 06/19/19 01:30 30 Mechanical Ventilator 40 06/19/19 01:20 130/110 06/19/19 01:20 30 Mechanical Ventilator 40 06/19/19 01:15 114 22 134/120 (125) 97 06/19/19 01:10 32 Mechanical Ventilator 40 06/19/19 01:00 157/82 06/19/19 01:00 32 Mechanical Ventilator 40 06/19/19 01:00 122 15 157/82 (107) 92 06/19/19 00:50 30 Mechanical Ventilator 40 06/19/19 00:45 89 12 122/72 (89) 100 06/19/19 00:40 24 Mechanical Ventilator 40 06/19/19 00:30 29 Mechanical Ventilator 40 06/19/19 00:30 79 23 122/80 (94) 100 06/19/19 00:15 78 17 136/74 (94) 100 06/19/19 00:00 145/73 06/19/19 00:00 28 Mechanical Ventilator 40 06/19/19 00:00 Mechanical Ventilator 06/19/19 00:00 97.6 80 20 145/73 (97) 100 06/18/19 23:30 79 27 128/74 (92) 100 06/18/19 23:00 79 25 131/86 (101) 100 06/18/19 23:00 78 30 100 Mechanical Ventilator 40 78 20 40 06/18/19 23:00 131/86 06/18/19 23:00 25 Mechanical Ventilator 40 06/18/19 22:30 130/74 06/18/19 22:30 86 24 130/74 (92) 100 06/18/19 22:15 110/66 06/18/19 22:00 81 30 115/71 (86) 100 06/18/19 22:00 115/71 06/18/19 22:00 28 Mechanical Ventilator 40 06/18/19 21:48 138/84 06/18/19 21:45 125/70 06/18/19 21:30 134/71 06/18/19 21:30 82 33 134/71 (92) 100 06/18/19 21:15 118/70 06/18/19 21:00 84 28 118/65 (82) 100 06/18/19 21:00 118/65 06/18/19 21:00 26 Mechanical Ventilator 40 06/18/19 20:30 93 25 150/74 (99) 100 06/18/19 20:00 40 06/18/19 20:00 98.6 86 32 139/79 (99) 100 06/18/19 20:00 86 06/18/19 20:00 Mechanical Ventilator 06/18/19 20:00 139/79 06/18/19 20:00 26 Mechanical Ventilator 40 06/18/19 19:30 88 29 126/72 (90) 100 06/18/19 19:23 96 26 100 Mechanical Ventilator 40 98 28 40 06/18/19 19:00 114/65 06/18/19 19:00 26 Mechanical Ventilator 40 06/18/19 18:45 100 24 100 06/18/19 18:35 26 Mechanical Ventilator 40 06/18/19 18:30 98 25 132/65 (87) 99 06/18/19 18:30 26 Mechanical Ventilator 40 06/18/19 18:15 100 24 120/59 (79) 98 06/18/19 18:15 132/65 06/18/19 18:00 107 23 109/62 (78) 96 06/18/19 18:00 120/59 06/18/19 18:00 26 Mechanical Ventilator 40 06/18/19 17:45 118 29 146/130 (135) 100 06/18/19 17:30 97 27 128/72 (90) 97 06/18/19 17:15 96 27 132/74 (93) 96 06/18/19 17:06 100 20 40 06/18/19 17:03 99 28 135/70 (91) 98 06/18/19 17:00 93 24 129/73 (91) 98 06/18/19 17:00 128/72 06/18/19 17:00 26 Mechanical Ventilator 40 06/18/19 16:56 91 24 143/66 (91) 98 06/18/19 16:50 98 23 95/61 (72) 97 06/18/19 16:45 100 24 88/52 (64) 97 06/18/19 16:30 96 25 94/60 (71) 97 06/18/19 16:15 93 30 101/68 (79) 98 06/18/19 16:00 98.9 84 26 116/66 (83) 98 06/18/19 16:00 76 06/18/19 16:00 101/68 06/18/19 16:00 26 Mechanical Ventilator 40 06/18/19 16:00 Mechanical Ventilator 06/18/19 15:52 40 06/18/19 15:30 82 30 85/57 (66) 95 06/18/19 15:30 85/57 06/18/19 15:16 76 20 100 Mechanical Ventilator 40 73 20 40 06/18/19 15:15 74 30 106/67 (80) 99 06/18/19 15:00 73 28 118/75 (89) 98 06/18/19 14:59 118/75 06/18/19 14:59 26 Mechanical Ventilator 40 06/18/19 14:45 75 27 89/57 (68) 99 06/18/19 14:30 73 32 113/68 (83) 99 06/18/19 14:30 89/57 06/18/19 14:15 78 36 91/56 (68) 95 06/18/19 14:00 91/56 06/18/19 14:00 26 Mechanical Ventilator 100 06/18/19 14:00 71 28 106/64 (78) 100 06/18/19 13:45 74 27 94/57 (69) 100 06/18/19 13:30 79 26 93/54 (67) 99 06/18/19 13:15 92 24 130/61 (84) 91 06/18/19 13:04 113/62 06/18/19 13:00 72 23 113/62 (79) 99 06/18/19 13:00 113/62 06/18/19 13:00 26 Mechanical Ventilator 40 06/18/19 12:51 73 26 40 Intake and Output 06/19/19 06/20/19 19:00 07:00 Intake Total 993.97 ml 1070.20 ml Output Total 30 ml Balance 963.97 ml 1070.20 ml Free Water 200 ml 200 ml IV Total 433.97 ml 630.20 ml Tube Feeding 360 ml 120 ml Other 120 ml Output Urine Total 30 ml # Bowel Movements 1 4 Labs Test 06/18/19 04:50 06/19/19 04:00 06/20/19 06:00 White Blood Count 21.7 K/UL (4.8-10.8) 15.0 K/UL (4.8-10.8) 15.5 K/UL (4.8-10.8) Red Blood Count 2.84 M/UL (4.70-6.10) 2.83 M/UL (4.70-6.10) 2.50 M/UL (4.70-6.10) Hemoglobin 8.8 G/DL (14.2-18.0) 8.7 G/DL (14.2-18.0) 7.7 G/DL (14.2-18.0) Hematocrit 26.6 % (42.0-52.0) 26.7 % (42.0-52.0) 23.4 % (42.0-52.0) Mean Corpuscular Volume 94 FL (80-99) 94 FL (80-99) 94 FL (80-99) Mean Corpuscular Hemoglobin 31.1 PG (27.0-31.0) 30.8 PG (27.0-31.0) 30.6 PG (27.0-31.0) Mean Corpuscular Hemoglobin Concent 33.3 G/DL (32.0-36.0) 32.7 G/DL (32.0-36.0) 32.7 G/DL (32.0-36.0) Red Cell Distribution Width 20.2 % (11.6-14.8) 19.3 % (11.6-14.8) 18.9 % (11.6-14.8) Platelet Count 186 K/UL (150-450) 178 K/UL (150-450) 227 K/UL (150-450) Mean Platelet Volume 8.0 FL (6.5-10.1) 8.9 FL (6.5-10.1) 7.7 FL (6.5-10.1) Neutrophils (%) (Auto) % (45.0-75.0) % (45.0-75.0) % (45.0-75.0) Lymphocytes (%) (Auto) % (20.0-45.0) % (20.0-45.0) % (20.0-45.0) Monocytes (%) (Auto) % (1.0-10.0) % (1.0-10.0) % (1.0-10.0) Eosinophils (%) (Auto) % (0.0-3.0) % (0.0-3.0) % (0.0-3.0) Basophils (%) (Auto) % (0.0-2.0) % (0.0-2.0) % (0.0-2.0) Differential Total Cells Counted 100 100 100 Neutrophils % (Manual) 90 % (45-75) 80 % (45-75) 94 % (45-75) Lymphocytes % (Manual) 3 % (20-45) 7 % (20-45) 2 % (20-45) Monocytes % (Manual) 7 % (1-10) 13 % (1-10) 4 % (1-10) Eosinophils % (Manual) 0 % (0-3) 0 % (0-3) 0 % (0-3) Basophils % (Manual) 0 % (0-2) 0 % (0-2) 0 % (0-2) Band Neutrophils 0 % (0-8) 0 % (0-8) 0 % (0-8) Platelet Estimate Adequate Adequate Adequate Platelet Morphology Normal Normal Normal Hypochromasia 2+ 2+ Anisocytosis 2+ 2+ 1+ Spherocytes 1+ 1+ Sodium Level 124 MMOL/L (136-145) 129 MMOL/L (136-145) 128 MMOL/L (136-145) Potassium Level 4.6 MMOL/L (3.5-5.1) 4.0 MMOL/L (3.5-5.1) 3.8 MMOL/L (3.5-5.1) Chloride Level 87 MMOL/L (98-107) 88 MMOL/L (98-107) 87 MMOL/L (98-107) Carbon Dioxide Level 22 MMOL/L (21-32) 26 MMOL/L (21-32) 23 MMOL/L (21-32) Anion Gap 16 mmol/L (5-15) 15 mmol/L (5-15) 18 mmol/L (5-15) Blood Urea Nitrogen 71 mg/dL (7-18) 54 mg/dL (7-18) 64 mg/dL (7-18) Creatinine 9.6 MG/DL (0.55-1.30) 7.5 MG/DL (0.55-1.30) 8.5 MG/DL (0.55-1.30) Estimat Glomerular Filtration Rate 5.5 mL/min (>60) 7.3 mL/min (>60) 6.3 mL/min (>60) Glucose Level 336 MG/DL (74-106) 376 MG/DL (74-106) 325 MG/DL (74-106) Calcium Level 8.1 MG/DL (8.5-10.1) 8.2 MG/DL (8.5-10.1) 8.3 MG/DL (8.5-10.1) Total Bilirubin 0.4 MG/DL (0.2-1.0) 0.4 MG/DL (0.2-1.0) 0.4 MG/DL (0.2-1.0) Aspartate Amino Transf (AST/SGOT) 25 U/L (15-37) 20 U/L (15-37) 18 U/L (15-37) Alanine Aminotransferase (ALT/SGPT) 20 U/L (12-78) 13 U/L (12-78) 7 U/L (12-78) Alkaline Phosphatase 78 U/L (46-116) 85 U/L (46-116) 79 U/L (46-116) Total Protein 7.5 G/DL (6.4-8.2) 7.7 G/DL (6.4-8.2) 7.3 G/DL (6.4-8.2) Albumin 1.7 G/DL (3.4-5.0) 2.0 G/DL (3.4-5.0) 1.7 G/DL (3.4-5.0) Globulin 5.8 g/dL 5.7 g/dL 5.6 g/dL Albumin/Globulin Ratio 0.3 (1.0-2.7) 0.4 (1.0-2.7) 0.3 (1.0-2.7) Random Vancomycin Level 21.9 ug/mL 17.8 ug/mL Uric Acid 3.8 MG/DL (2.6-7.2) Phosphorus Level 7.2 MG/DL (2.5-4.9) 7.0 MG/DL (2.5-4.9) Magnesium Level 2.1 MG/DL (1.8-2.4) 2.1 MG/DL (1.8-2.4) C-Reactive Protein, Quantitative 27.4 mg/dL (0.00-0.90) Pro-B-Type Natriuretic Peptide > 25370 pg/mL (0-125) Thyroid Stimulating Hormone (TSH) 3.946 uiU/mL (0.358-3.740) Polychromasia 1+ Height (Feet): 6 Height (Inches): 1.00 Weight (Pounds): 242 Objective Sp02 EP Interpretation: reviewed, normal General: confused, sedated Heent: bilateral eye normal inspection, bilateral eye PERRL ++Ng Respiratory: normal breath sounds, no respiratory distress,intubated+++ Cardiovascular: regular rate, rhythm, no edema Gastrointestinal: normal inspection, soft, non-distended Rectal: deferred Musculoskeletal: normal range of motion, non-tender Neurologic: alert, motor strength/tone normal, sensory intact, responsive, speech normal Skin: Decubitus/Ulcer - See RN skin exam. : jamaal+ Greg Cabral MD June 20, 2019 12:47
--- NOTE | 2019-06-20 13:02 | GI Progress Note ---
Assessment/Plan Problems: (1) Sepsis due to severe acute respiratory syndrome coronavirus 2 (SARS-CoV-2) ICD Codes: U07.1 - COVID-19; A41.89 - Other specified sepsis SNOMED: 407391164, 582202367 (2) Pneumonia due to COVID-19 virus ICD Codes: U07.1 - COVID-19; J12.89 - Other viral pneumonia SNOMED: 991209340, 755895374 (3) Respiratory failure requiring intubation ICD Codes: J96.90 - Respiratory failure, unspecified, unspecified whether with hypoxia or hypercapnia; A41.89 - Other specified sepsis SNOMED: 307339859, 593376736 (4) COVID-19 ICD Codes: U07.1 - COVID-19 SNOMED: 400522927 (5) Anemia ICD Codes: D64.9 - Anemia, unspecified SNOMED: 689997305 Status: unchanged Status Narrative Discussed with Dr. Ramires. Assessment/Plan #decreased GI motility 2/2 to sepsis vs covid infection - continue low dose reglan 5mg IV q8 - decrease TF to 35cc/hr, monitor for residuals, advance to goal #Anemia most likely 2/2 to chronic renal disease - PPI IV daily - monitor H&H, prn transfusions - OB stool r/o GI bleed #Constipation - bowel regime Miralax and colace The patient was seen and examined at bedside and all new and available data was reviewed in the patients chart. I agree with the above findings, impression and plan. (Patient seen earlier today. Signature stamp does not reflect patient encounter time.). - Marito Ramires MD Subjective Subjective limited Objective Last 24 Hour Vital Signs Date Time Temp Pulse Resp B/P (MAP) Pulse Ox O2 Delivery O2 Flow Rate FiO2 06/20/19 12:30 74 26 104/51 (68) 98 06/20/19 12:00 73 17 92/53 (66) 98 06/20/19 12:00 75 06/20/19 11:30 74 15 94/45 (61) 99 06/20/19 11:05 76 27 98 Mechanical Ventilator 40 76 27 40 06/20/19 11:00 80 36 106/52 (70) 98 06/20/19 11:00 102/52 06/20/19 10:30 84 20 102/52 (69) 98 06/20/19 10:00 25 Endotracheal Tube 40 06/20/19 10:00 95/54 06/20/19 10:00 79 26 97/52 (67) 98 06/20/19 09:30 75 26 98/51 (67) 98 06/20/19 09:00 80 26 104/50 (68) 98 06/20/19 09:00 26 Endotracheal Tube 40 06/20/19 09:00 103/52 06/20/19 08:30 82 21 94/75 (81) 99 06/20/19 08:04 25 Endotracheal Tube 70.0 40 06/20/19 08:00 99.0 73 28 105/53 (70) 100 06/20/19 08:00 Mechanical Ventilator 06/20/19 08:00 74 06/20/19 08:00 105/55 06/20/19 08:00 40 06/20/19 07:15 73 26 100 Mechanical Ventilator 40 73 26 40 06/20/19 07:00 102/65 06/20/19 07:00 72 25 101/53 (69) 100 06/20/19 06:30 72 27 105/61 (76) 100 06/20/19 06:00 94/51 06/20/19 06:00 24 Mechanical Ventilator 40 06/20/19 06:00 74 24 94/51 (65) 100 06/20/19 05:30 64 27 114/59 (77) 100 06/20/19 05:00 101/53 06/20/19 05:00 28 Mechanical Ventilator 40 06/20/19 05:00 65 28 101/53 (69) 100 06/20/19 04:30 74 24 97/48 (64) 100 06/20/19 04:00 40 06/20/19 04:00 72 06/20/19 04:00 76 21 109/53 (71) 100 06/20/19 04:00 109/53 06/20/19 04:00 21 Mechanical Ventilator 40 06/20/19 04:00 Mechanical Ventilator 06/20/19 03:30 79 11 93/55 (68) 100 06/20/19 03:00 112/62 06/20/19 03:00 10 Mechanical Ventilator 40 06/20/19 03:00 87 10 112/62 (79) 100 06/20/19 02:30 103 15 109/55 (73) 97 06/20/19 02:00 109 28 160/90 (113) 98 06/20/19 02:00 160/90 06/20/19 02:00 28 Mechanical Ventilator 40 06/20/19 01:41 85 30 40 06/20/19 01:30 86 17 111/68 (82) 100 06/20/19 01:00 83 25 140/71 (94) 99 06/20/19 01:00 140/70 06/20/19 01:00 25 Mechanical Ventilator 40 06/20/19 00:45 124/74 06/20/19 00:30 119/67 06/20/19 00:30 89 25 119/67 (84) 100 06/20/19 00:15 126/68 06/20/19 00:00 97.6 89 23 132/69 (90) 100 06/20/19 00:00 132/69 06/20/19 00:00 23 Mechanical Ventilator 40 06/20/19 00:00 Mechanical Ventilator 06/19/19 23:52 100.1 06/19/19 23:30 90 24 125/73 (90) 100 06/19/19 23:13 26 Mechanical Ventilator 40 06/19/19 23:00 86 15 125/65 (85) 100 06/19/19 23:00 125/65 06/19/19 23:00 15 Mechanical Ventilator 40 06/19/19 22:58 81 31 100 Mechanical Ventilator 40 83 30 40 06/19/19 22:30 79 20 128/67 (87) 100 06/19/19 22:00 117/63 06/19/19 22:00 24 Mechanical Ventilator 40 06/19/19 22:00 79 24 117/63 (81) 100 06/19/19 21:30 74 26 115/66 (82) 100 06/19/19 21:00 109/46 06/19/19 21:00 26 Mechanical Ventilator 40 06/19/19 21:00 76 28 116/57 (76) 100 06/19/19 20:30 76 25 101/55 (70) 100 06/19/19 20:00 100.1 78 25 101/47 (65) 100 06/19/19 20:00 78 06/19/19 20:00 114/44 06/19/19 20:00 26 Mechanical Ventilator 40 06/19/19 20:00 40 06/19/19 20:00 Mechanical Ventilator 06/19/19 19:30 75 17 100/52 (68) 100 06/19/19 19:01 76 27 100 Mechanical Ventilator 40 73 26 40 06/19/19 19:00 108/48 06/19/19 19:00 19 Endotracheal Tube 40 06/19/19 19:00 76 19 108/48 (68) 100 06/19/19 18:30 76 18 96/49 (65) 99 06/19/19 18:00 100/47 06/19/19 18:00 20 Endotracheal Tube 40 06/19/19 18:00 76 15 100/47 (64) 99 06/19/19 17:30 77 11 99/53 (68) 99 06/19/19 17:00 92/49 06/19/19 17:00 28 Endotracheal Tube 40 06/19/19 17:00 76 16 93/50 (64) 99 06/19/19 16:30 75 16 92/48 (63) 97 06/19/19 16:00 40 06/19/19 16:00 Mechanical Ventilator 06/19/19 16:00 22 Endotracheal Tube 40 06/19/19 16:00 75 06/19/19 16:00 88 23 107/48 (67) 97 06/19/19 15:30 76 17 121/62 (81) 99 06/19/19 15:11 72 27 40 06/19/19 15:00 18 Endotracheal Tube 40 06/19/19 15:00 72 16 121/61 (81) 100 06/19/19 14:00 24 Endotracheal Tube 40 06/19/19 14:00 73 18 117/60 (79) 100 06/19/19 13:30 78 16 119/67 (84) 100 06/19/19 13:19 14 Endotracheal Tube 70.0 40 06/19/19 13:00 99.5 73 16 119/64 (82) 100 06/19/19 13:00 117/64 Intake and Output 06/19/19 06/20/19 19:00 07:00 Intake Total 993.97 ml 1070.20 ml Output Total 30 ml Balance 963.97 ml 1070.20 ml Free Water 200 ml 200 ml IV Total 433.97 ml 630.20 ml Tube Feeding 360 ml 120 ml Other 120 ml Output Urine Total 30 ml # Bowel Movements 1 4 Laboratory Tests Test 06/20/19 06:00 White Blood Count 15.5 K/UL (4.8-10.8) H Red Blood Count 2.50 M/UL (4.70-6.10) L Hemoglobin 7.7 G/DL (14.2-18.0) L Hematocrit 23.4 % (42.0-52.0) L Mean Corpuscular Volume 94 FL (80-99) Mean Corpuscular Hemoglobin 30.6 PG (27.0-31.0) Mean Corpuscular Hemoglobin Concent 32.7 G/DL (32.0-36.0) Red Cell Distribution Width 18.9 % (11.6-14.8) H Platelet Count 227 K/UL (150-450) Mean Platelet Volume 7.7 FL (6.5-10.1) Neutrophils (%) (Auto) % (45.0-75.0) Lymphocytes (%) (Auto) % (20.0-45.0) Monocytes (%) (Auto) % (1.0-10.0) Eosinophils (%) (Auto) % (0.0-3.0) Basophils (%) (Auto) % (0.0-2.0) Differential Total Cells Counted 100 Neutrophils % (Manual) 94 % (45-75) H Lymphocytes % (Manual) 2 % (20-45) L Monocytes % (Manual) 4 % (1-10) Eosinophils % (Manual) 0 % (0-3) Basophils % (Manual) 0 % (0-2) Band Neutrophils 0 % (0-8) Platelet Estimate Adequate Platelet Morphology Normal Polychromasia 1+ Anisocytosis 1+ Sodium Level 128 MMOL/L (136-145) L Potassium Level 3.8 MMOL/L (3.5-5.1) Chloride Level 87 MMOL/L (98-107) L Carbon Dioxide Level 23 MMOL/L (21-32) Anion Gap 18 mmol/L (5-15) H Blood Urea Nitrogen 64 mg/dL (7-18) H Creatinine 8.5 MG/DL (0.55-1.30) H Estimat Glomerular Filtration Rate 6.3 mL/min (>60) Glucose Level 325 MG/DL (74-106) H Calcium Level 8.3 MG/DL (8.5-10.1) L Phosphorus Level 7.0 MG/DL (2.5-4.9) H Magnesium Level 2.1 MG/DL (1.8-2.4) Total Bilirubin 0.4 MG/DL (0.2-1.0) Aspartate Amino Transf (AST/SGOT) 18 U/L (15-37) Alanine Aminotransferase (ALT/SGPT) 7 U/L (12-78) L Alkaline Phosphatase 79 U/L (46-116) Total Protein 7.3 G/DL (6.4-8.2) Albumin 1.7 G/DL (3.4-5.0) L Globulin 5.6 g/dL Albumin/Globulin Ratio 0.3 (1.0-2.7) L Height (Feet): 6 Height (Inches): 1.00 Weight (Pounds): 242 General Appearance: no apparent distress Cardiovascular: normal rate Respiratory/Chest: no respiratory distress Abdominal Exam: normal bowel sounds, soft Lyle Sanders [employer] June 20, 2019 13:02
--- NOTE | 2019-06-20 17:16 | Surgery Progress Note ---
Surgery Progress Note Subjective Procedure Performed Right femoral temporary hemodialysis catheter insertion Additional Comments repeat covid ++ leukocytosis persistent anemia on support in ICU slow improvement Objective Last 24 Hour Vital Signs Date Time Temp Pulse Resp B/P (MAP) Pulse Ox O2 Delivery O2 Flow Rate FiO2 06/20/19 17:05 89 26 82/47 (59) 98 06/20/19 16:30 90 26 91/43 (59) 97 06/20/19 16:00 80 29 105/53 (70) 98 06/20/19 16:00 92 06/20/19 15:30 91 26 102/52 (69) 98 06/20/19 15:10 80 26 98 Mechanical Ventilator 40 80 26 40 06/20/19 15:00 83 24 103/52 (69) 97 06/20/19 14:30 82 24 108/63 (78) 95 06/20/19 14:00 80 24 98/52 (67) 95 06/20/19 13:30 79 24 108/53 (71) 98 06/20/19 13:00 99.5 81 27 96/52 (67) 93 06/20/19 12:30 74 26 104/51 (68) 98 06/20/19 12:00 40 06/20/19 12:00 73 17 92/53 (66) 98 06/20/19 12:00 Mechanical Ventilator 06/20/19 12:00 75 06/20/19 11:30 74 15 94/45 (61) 99 06/20/19 11:05 76 27 98 Mechanical Ventilator 40 76 27 40 06/20/19 11:00 80 36 106/52 (70) 98 06/20/19 11:00 102/52 06/20/19 10:30 84 20 102/52 (69) 98 06/20/19 10:00 25 Endotracheal Tube 40 06/20/19 10:00 95/54 06/20/19 10:00 79 26 97/52 (67) 98 06/20/19 09:30 75 26 98/51 (67) 98 06/20/19 09:00 80 26 104/50 (68) 98 06/20/19 09:00 26 Endotracheal Tube 40 06/20/19 09:00 103/52 06/20/19 08:30 82 21 94/75 (81) 99 06/20/19 08:04 25 Endotracheal Tube 70.0 40 06/20/19 08:00 99.0 73 28 105/53 (70) 100 06/20/19 08:00 Mechanical Ventilator 06/20/19 08:00 74 06/20/19 08:00 105/55 06/20/19 08:00 40 06/20/19 07:15 73 26 100 Mechanical Ventilator 40 73 26 40 06/20/19 07:00 102/65 06/20/19 07:00 72 25 101/53 (69) 100 06/20/19 06:30 72 27 105/61 (76) 100 06/20/19 06:00 94/51 06/20/19 06:00 24 Mechanical Ventilator 40 06/20/19 06:00 74 24 94/51 (65) 100 06/20/19 05:30 64 27 114/59 (77) 100 06/20/19 05:00 101/53 06/20/19 05:00 28 Mechanical Ventilator 40 06/20/19 05:00 65 28 101/53 (69) 100 06/20/19 04:30 74 24 97/48 (64) 100 06/20/19 04:00 40 06/20/19 04:00 72 06/20/19 04:00 76 21 109/53 (71) 100 06/20/19 04:00 109/53 06/20/19 04:00 21 Mechanical Ventilator 40 06/20/19 04:00 Mechanical Ventilator 06/20/19 03:30 79 11 93/55 (68) 100 06/20/19 03:00 112/62 06/20/19 03:00 10 Mechanical Ventilator 40 06/20/19 03:00 87 10 112/62 (79) 100 06/20/19 02:30 103 15 109/55 (73) 97 06/20/19 02:00 109 28 160/90 (113) 98 06/20/19 02:00 160/90 06/20/19 02:00 28 Mechanical Ventilator 40 06/20/19 01:41 85 30 40 06/20/19 01:30 86 17 111/68 (82) 100 06/20/19 01:00 83 25 140/71 (94) 99 06/20/19 01:00 140/70 06/20/19 01:00 25 Mechanical Ventilator 40 06/20/19 00:45 124/74 06/20/19 00:30 119/67 06/20/19 00:30 89 25 119/67 (84) 100 06/20/19 00:15 126/68 06/20/19 00:00 97.6 89 23 132/69 (90) 100 06/20/19 00:00 132/69 06/20/19 00:00 23 Mechanical Ventilator 40 06/20/19 00:00 Mechanical Ventilator 06/19/19 23:52 100.1 06/19/19 23:30 90 24 125/73 (90) 100 06/19/19 23:13 26 Mechanical Ventilator 40 06/19/19 23:00 86 15 125/65 (85) 100 06/19/19 23:00 125/65 06/19/19 23:00 15 Mechanical Ventilator 40 06/19/19 22:58 81 31 100 Mechanical Ventilator 40 83 30 40 06/19/19 22:30 79 20 128/67 (87) 100 06/19/19 22:00 117/63 06/19/19 22:00 24 Mechanical Ventilator 40 06/19/19 22:00 79 24 117/63 (81) 100 06/19/19 21:30 74 26 115/66 (82) 100 06/19/19 21:00 109/46 06/19/19 21:00 26 Mechanical Ventilator 40 06/19/19 21:00 76 28 116/57 (76) 100 06/19/19 20:30 76 25 101/55 (70) 100 06/19/19 20:00 100.1 78 25 101/47 (65) 100 06/19/19 20:00 78 06/19/19 20:00 114/44 06/19/19 20:00 26 Mechanical Ventilator 40 06/19/19 20:00 40 06/19/19 20:00 Mechanical Ventilator 06/19/19 19:30 75 17 100/52 (68) 100 06/19/19 19:01 76 27 100 Mechanical Ventilator 40 73 26 40 06/19/19 19:00 108/48 06/19/19 19:00 19 Endotracheal Tube 40 06/19/19 19:00 76 19 108/48 (68) 100 06/19/19 18:30 76 18 96/49 (65) 99 06/19/19 18:00 100/47 5/9/20 18:00 20 Endotracheal Tube 40 06/19/19 18:00 76 15 100/47 (64) 99 06/19/19 17:30 77 11 99/53 (68) 99 I&O Intake and Output 06/19/19 06/20/19 19:00 07:00 Intake Total 993.97 ml 1070.20 ml Output Total 30 ml Balance 963.97 ml 1070.20 ml Free Water 200 ml 200 ml IV Total 433.97 ml 630.20 ml Tube Feeding 360 ml 120 ml Other 120 ml Output Urine Total 30 ml # Bowel Movements 1 4 Dressing: dry Wound: other Drains: other Cardiovascular: RSR Respiratory: decreased breath sounds Abdomen: soft, non-tender, present bowel sounds, non-distended Extremities: edema, no tenderness, no cyanosis Laboratory Tests Test 06/20/19 06:00 White Blood Count 15.5 K/UL (4.8-10.8) H Red Blood Count 2.50 M/UL (4.70-6.10) L Hemoglobin 7.7 G/DL (14.2-18.0) L Hematocrit 23.4 % (42.0-52.0) L Mean Corpuscular Volume 94 FL (80-99) Mean Corpuscular Hemoglobin 30.6 PG (27.0-31.0) Mean Corpuscular Hemoglobin Concent 32.7 G/DL (32.0-36.0) Red Cell Distribution Width 18.9 % (11.6-14.8) H Platelet Count 227 K/UL (150-450) Mean Platelet Volume 7.7 FL (6.5-10.1) Neutrophils (%) (Auto) % (45.0-75.0) Lymphocytes (%) (Auto) % (20.0-45.0) Monocytes (%) (Auto) % (1.0-10.0) Eosinophils (%) (Auto) % (0.0-3.0) Basophils (%) (Auto) % (0.0-2.0) Differential Total Cells Counted 100 Neutrophils % (Manual) 94 % (45-75) H Lymphocytes % (Manual) 2 % (20-45) L Monocytes % (Manual) 4 % (1-10) Eosinophils % (Manual) 0 % (0-3) Basophils % (Manual) 0 % (0-2) Band Neutrophils 0 % (0-8) Platelet Estimate Adequate Platelet Morphology Normal Polychromasia 1+ Anisocytosis 1+ Sodium Level 128 MMOL/L (136-145) L Potassium Level 3.8 MMOL/L (3.5-5.1) Chloride Level 87 MMOL/L (98-107) L Carbon Dioxide Level 23 MMOL/L (21-32) Anion Gap 18 mmol/L (5-15) H Blood Urea Nitrogen 64 mg/dL (7-18) H Creatinine 8.5 MG/DL (0.55-1.30) H Estimat Glomerular Filtration Rate 6.3 mL/min (>60) Glucose Level 325 MG/DL (74-106) H Calcium Level 8.3 MG/DL (8.5-10.1) L Phosphorus Level 7.0 MG/DL (2.5-4.9) H Magnesium Level 2.1 MG/DL (1.8-2.4) Total Bilirubin 0.4 MG/DL (0.2-1.0) Aspartate Amino Transf (AST/SGOT) 18 U/L (15-37) Alanine Aminotransferase (ALT/SGPT) 7 U/L (12-78) L Alkaline Phosphatase 79 U/L (46-116) Total Protein 7.3 G/DL (6.4-8.2) Albumin 1.7 G/DL (3.4-5.0) L Globulin 5.6 g/dL Albumin/Globulin Ratio 0.3 (1.0-2.7) L Plan Problems: (1) Suspected COVID-19 virus infection (2) HTN (hypertension) (3) CASSANDRA (acute kidney injury) Assessment & Plan: Needs urgent HD needs access patient okay and consented see note will follow with recs new line placed discussed with team and nephrology HD line functional when checked has TPA now please use appropriately Cathflo used again this flow during dialysis on 430 was low. Will monitor may need line change / plan for HD as per renal (4) Anemia in chronic kidney disease (CKD) (5) Anemia (6) Renal failure (7) Suspected COVID-19 virus infection (8) COVID-19 Assessment & Plan: COVID + c diff negative febrile leukocytosis renal insufficiency see above cont resp care Rx as per ID worsening on vent support now cxr noted on pressors prognosis guarded repeat covid ++ weaning vent and pressors off slowly showing improvement Yaniv Mast June 20, 2019 17:16
[2019-06-20] MEDS: Acetaminophen 650mg/20.3ml NG PRN (17:38)
[2019-06-20] MEDS: Dyna-Hex 2% Top Sol 2oz TOPIC SCH (20:26)
--- NOTE | 2019-06-20 20:32 | General Progress Note ---
Assessment/Plan Problem List: (1) Anemia ICD Codes: D64.9 - Anemia, unspecified SNOMED: 423840866 (2) Renal failure ICD Codes: N19 - Unspecified kidney failure SNOMED: 61251764 (3) Suspected COVID-19 virus infection ICD Codes: R68.89 - Other general symptoms and signs SNOMED: 439176545 (4) HTN (hypertension) ICD Codes: I10 - Essential (primary) hypertension SNOMED: 52102180 (5) CASSANDRA (acute kidney injury) ICD Codes: N17.9 - Acute kidney failure, unspecified SNOMED: 3388619, 12779961 (6) Anemia in chronic kidney disease (CKD) ICD Codes: N18.9 - Chronic kidney disease, unspecified; D63.1 - Anemia in chronic kidney disease SNOMED: 795231337 (7) Suspected COVID-19 virus infection ICD Codes: R68.89 - Other general symptoms and signs SNOMED: 206195122 Status: unchanged Assessment/Plan: weak HD lyte abnormality reviwed chart abx per id pna covid positve resp failure sepsi hyponatrmia persistent leukocytosis anemia Subjective ROS Limited/Unobtainable: Yes Allergies: Coded Allergies: No Known Allergies (Unverified , 05/28/19) Objective Last 24 Hour Vital Signs Date Time Temp Pulse Resp B/P (MAP) Pulse Ox O2 Delivery O2 Flow Rate FiO2 06/20/19 20:08 78 26 136/62 (86) 100 06/20/19 20:00 99.4 89 26 74/46 (55) 98 06/20/19 20:00 75 06/20/19 20:00 Mechanical Ventilator 06/20/19 20:00 40 06/20/19 19:45 87 26 89/52 (64) 99 06/20/19 19:45 111/59 06/20/19 19:30 141/46 06/20/19 19:30 81 26 111/59 (76) 99 06/20/19 19:15 77 26 141/61 (87) 99 06/20/19 19:15 76/46 06/20/19 19:00 90 26 76/46 (56) 98 06/20/19 19:00 26 Endotracheal Tube 40 06/20/19 19:00 141/61 06/20/19 18:45 87 22 123/55 (77) 100 06/20/19 18:30 85 26 113/57 (75) 100 06/20/19 18:16 99.8 06/20/19 18:15 86 26 113/54 (73) 100 06/20/19 18:00 86 26 110/55 (73) 99 06/20/19 18:00 26 Endotracheal Tube 40 06/20/19 18:00 110/55 06/20/19 17:36 27 Endotracheal Tube 70.0 40 06/20/19 17:35 87 27 103/50 (67) 99 06/20/19 17:30 86 27 103/50 (67) 99 06/20/19 17:05 89 26 82/47 (59) 98 06/20/19 17:00 100.5 89 27 82/47 (59) 98 06/20/19 17:00 27 Endotracheal Tube 40 06/20/19 17:00 82/47 06/20/19 16:30 90 26 91/43 (59) 97 06/20/19 16:00 40 06/20/19 16:00 80 29 105/53 (70) 98 06/20/19 16:00 92 06/20/19 16:00 Mechanical Ventilator 06/20/19 16:00 26 Endotracheal Tube 40 06/20/19 16:00 103/53 06/20/19 15:30 91 26 102/52 (69) 98 06/20/19 15:10 80 26 98 Mechanical Ventilator 40 80 26 40 06/20/19 15:00 20 Endotracheal Tube 40 06/20/19 15:00 103/52 06/20/19 15:00 83 24 103/52 (69) 97 06/20/19 14:30 82 24 108/63 (78) 95 06/20/19 14:00 80 24 98/52 (67) 95 06/20/19 14:00 24 Endotracheal Tube 40 06/20/19 14:00 98/52 06/20/19 13:30 79 24 108/53 (71) 98 06/20/19 13:00 99.5 81 27 96/52 (67) 93 06/20/19 13:00 27 Endotracheal Tube 40 06/20/19 13:00 96/52 06/20/19 12:30 74 26 104/51 (68) 98 06/20/19 12:00 40 06/20/19 12:00 73 17 92/53 (66) 98 06/20/19 12:00 Mechanical Ventilator 06/20/19 12:00 23 Endotracheal Tube 40 06/20/19 12:00 92/53 06/20/19 12:00 75 06/20/19 11:30 74 15 94/45 (61) 99 06/20/19 11:05 76 27 98 Mechanical Ventilator 40 76 27 40 06/20/19 11:00 80 36 106/52 (70) 98 06/20/19 11:00 36 Endotracheal Tube 40 06/20/19 11:00 102/52 06/20/19 10:30 84 20 102/52 (69) 98 06/20/19 10:00 25 Endotracheal Tube 40 06/20/19 10:00 95/54 06/20/19 10:00 79 26 97/52 (67) 98 06/20/19 09:30 75 26 98/51 (67) 98 06/20/19 09:00 80 26 104/50 (68) 98 06/20/19 09:00 26 Endotracheal Tube 40 06/20/19 09:00 103/52 06/20/19 08:30 82 21 94/75 (81) 99 06/20/19 08:04 25 Endotracheal Tube 70.0 40 06/20/19 08:00 99.0 73 28 105/53 (70) 100 06/20/19 08:00 Mechanical Ventilator 06/20/19 08:00 74 06/20/19 08:00 105/55 06/20/19 08:00 40 06/20/19 07:15 73 26 100 Mechanical Ventilator 40 73 26 40 06/20/19 07:00 102/65 06/20/19 07:00 72 25 101/53 (69) 100 06/20/19 06:30 72 27 105/61 (76) 100 06/20/19 06:00 94/51 06/20/19 06:00 24 Mechanical Ventilator 40 06/20/19 06:00 74 24 94/51 (65) 100 06/20/19 05:30 64 27 114/59 (77) 100 06/20/19 05:00 101/53 06/20/19 05:00 28 Mechanical Ventilator 40 06/20/19 05:00 65 28 101/53 (69) 100 06/20/19 04:30 74 24 97/48 (64) 100 06/20/19 04:00 40 06/20/19 04:00 72 06/20/19 04:00 76 21 109/53 (71) 100 06/20/19 04:00 109/53 06/20/19 04:00 21 Mechanical Ventilator 40 06/20/19 04:00 Mechanical Ventilator 06/20/19 03:30 79 11 93/55 (68) 100 06/20/19 03:00 112/62 06/20/19 03:00 10 Mechanical Ventilator 40 06/20/19 03:00 87 10 112/62 (79) 100 06/20/19 02:30 103 15 109/55 (73) 97 06/20/19 02:00 109 28 160/90 (113) 98 06/20/19 02:00 160/90 06/20/19 02:00 28 Mechanical Ventilator 40 06/20/19 01:41 85 30 40 06/20/19 01:30 86 17 111/68 (82) 100 06/20/19 01:00 83 25 140/71 (94) 99 06/20/19 01:00 140/70 06/20/19 01:00 25 Mechanical Ventilator 40 06/20/19 00:45 124/74 06/20/19 00:30 119/67 06/20/19 00:30 89 25 119/67 (84) 100 06/20/19 00:15 126/68 06/20/19 00:00 97.6 89 23 132/69 (90) 100 06/20/19 00:00 132/69 06/20/19 00:00 23 Mechanical Ventilator 40 06/20/19 00:00 Mechanical Ventilator 06/19/19 23:52 100.1 06/19/19 23:30 90 24 125/73 (90) 100 06/19/19 23:13 26 Mechanical Ventilator 40 06/19/19 23:00 86 15 125/65 (85) 100 06/19/19 23:00 125/65 06/19/19 23:00 15 Mechanical Ventilator 40 06/19/19 22:58 81 31 100 Mechanical Ventilator 40 83 30 40 06/19/19 22:30 79 20 128/67 (87) 100 06/19/19 22:00 117/63 06/19/19 22:00 24 Mechanical Ventilator 40 06/19/19 22:00 79 24 117/63 (81) 100 06/19/19 21:30 74 26 115/66 (82) 100 06/19/19 21:00 109/46 06/19/19 21:00 26 Mechanical Ventilator 40 06/19/19 21:00 76 28 116/57 (76) 100 Intake and Output 06/19/19 06/20/19 19:00 07:00 Intake Total 993.97 ml 1070.20 ml Output Total 30 ml Balance 963.97 ml 1070.20 ml Free Water 200 ml 200 ml IV Total 433.97 ml 630.20 ml Tube Feeding 360 ml 120 ml Other 120 ml Output Urine Total 30 ml # Bowel Movements 1 4 Laboratory Tests 06/20/19 06:00: White Blood Count 15.5H, Red Blood Count 2.50L, Hemoglobin 7.7L, Hematocrit 23.4L, Mean Corpuscular Volume 94, Mean Corpuscular Hemoglobin 30.6, Mean Corpuscular Hemoglobin Concent 32.7, Red Cell Distribution Width 18.9H, Platelet Count 227, Mean Platelet Volume 7.7, Neutrophils (%) (Auto) , Lymphocytes (%) (Auto) , Monocytes (%) (Auto) , Eosinophils (%) (Auto) , Basophils (%) (Auto) , Differential Total Cells Counted 100, Neutrophils % ( Manual) 94H, Lymphocytes % (Manual) 2L, Monocytes % (Manual) 4, Eosinophils % ( Manual) 0, Basophils % (Manual) 0, Band Neutrophils 0, Platelet Estimate Adequate, Platelet Morphology Normal, Polychromasia 1+, Anisocytosis 1+, Sodium Level 128L, Potassium Level 3.8, Chloride Level 87L, Carbon Dioxide Level 23, Anion Gap 18H, Blood Urea Nitrogen 64H, Creatinine 8.5H, Estimat Glomerular Filtration Rate 6.3, Glucose Level 325H, Calcium Level 8.3L, Phosphorus Level 7.0H, Magnesium Level 2.1, Total Bilirubin 0.4, Aspartate Amino Transf (AST/SGOT ) 18, Alanine Aminotransferase (ALT/SGPT) 7L, Alkaline Phosphatase 79, Total Protein 7.3, Albumin 1.7L, Globulin 5.6, Albumin/Globulin Ratio 0.3L Height (Feet): 6 Height (Inches): 1.00 Weight (Pounds): 242 Hadadz,Ali MD June 20, 2019 20:31
--- NOTE | 2019-06-20 23:22 | Cardiac Electrophysiology PN ---
Assessment/Plan Assessment/Plan 1. Elevated troponin. Troponin on May 27 and May 30 were negative; however , on June 01, it was elevated at 0.074. Repeat 0.05. Likely due to renal failure. On Aspirin. EF 60%. 2. Septic shock. On Levo 8 mc. Still febrile 3. ESRD, on hemodialysis per Dr. Cole. 4. Respiratory failure due to COVID-19 positive pneumonia. Still febrile On the Vent with 40% Fio2. Fu by Dr. Leyva and Dr. Mckeon. 5. MRSA carrier. 6. COPD. 7. Anemia. 8. Depression. 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 In SR. Is Covid positive x 3. HAd fever again Objective Last 24 Hour Vital Signs Date Time Temp Pulse Resp B/P (MAP) Pulse Ox O2 Delivery O2 Flow Rate FiO2 06/20/19 22:15 135/61 06/20/19 22:15 93 25 135/61 (85) 100 06/20/19 22:00 117/56 06/20/19 22:00 93 26 117/56 (76) 100 06/20/19 21:45 144/60 06/20/19 21:45 94 26 144/60 (88) 100 06/20/19 21:30 138/61 06/20/19 21:30 95 26 138/61 (86) 100 06/20/19 21:15 96 26 135/62 (86) 100 06/20/19 21:15 135/62 06/20/19 21:00 96 26 138/64 (88) 100 06/20/19 21:00 138/64 06/20/19 20:45 105 25 94/54 (67) 99 06/20/19 20:45 94/54 06/20/19 20:30 88/52 06/20/19 20:30 95 25 88/52 (64) 99 06/20/19 20:15 112/58 06/20/19 20:15 86 26 112/58 (76) 100 06/20/19 20:08 78 26 136/62 (86) 100 06/20/19 20:00 99.4 89 26 74/46 (55) 98 06/20/19 20:00 75 5/10/20 20:00 Mechanical Ventilator 06/20/19 20:00 74/46 06/20/19 20:00 40 06/20/19 19:45 87 26 89/52 (64) 99 06/20/19 19:45 111/59 06/20/19 19:30 95 26 98 Mechanical Ventilator 40 94 26 40 06/20/19 19:30 141/46 06/20/19 19:30 81 26 111/59 (76) 99 06/20/19 19:15 77 26 141/61 (87) 99 06/20/19 19:15 76/46 06/20/19 19:00 90 26 76/46 (56) 98 06/20/19 19:00 26 Endotracheal Tube 40 06/20/19 19:00 141/61 06/20/19 18:45 87 22 123/55 (77) 100 06/20/19 18:30 85 26 113/57 (75) 100 06/20/19 18:16 99.8 06/20/19 18:15 86 26 113/54 (73) 100 06/20/19 18:00 86 26 110/55 (73) 99 06/20/19 18:00 26 Endotracheal Tube 40 06/20/19 18:00 110/55 06/20/19 17:36 27 Endotracheal Tube 70.0 40 06/20/19 17:35 87 27 103/50 (67) 99 06/20/19 17:30 86 27 103/50 (67) 99 06/20/19 17:05 89 26 82/47 (59) 98 06/20/19 17:00 100.5 89 27 82/47 (59) 98 06/20/19 17:00 27 Endotracheal Tube 40 06/20/19 17:00 82/47 06/20/19 16:30 90 26 91/43 (59) 97 06/20/19 16:00 40 06/20/19 16:00 80 29 105/53 (70) 98 06/20/19 16:00 92 06/20/19 16:00 Mechanical Ventilator 06/20/19 16:00 26 Endotracheal Tube 40 06/20/19 16:00 103/53 06/20/19 15:30 91 26 102/52 (69) 98 06/20/19 15:10 80 26 98 Mechanical Ventilator 40 80 26 40 06/20/19 15:00 20 Endotracheal Tube 40 5/10/20 15:00 103/52 06/20/19 15:00 83 24 103/52 (69) 97 06/20/19 14:30 82 24 108/63 (78) 95 06/20/19 14:00 80 24 98/52 (67) 95 06/20/19 14:00 24 Endotracheal Tube 40 06/20/19 14:00 98/52 06/20/19 13:30 79 24 108/53 (71) 98 06/20/19 13:00 99.5 81 27 96/52 (67) 93 06/20/19 13:00 27 Endotracheal Tube 40 06/20/19 13:00 96/52 06/20/19 12:30 74 26 104/51 (68) 98 06/20/19 12:00 40 06/20/19 12:00 73 17 92/53 (66) 98 06/20/19 12:00 Mechanical Ventilator 06/20/19 12:00 23 Endotracheal Tube 40 06/20/19 12:00 92/53 06/20/19 12:00 75 06/20/19 11:30 74 15 94/45 (61) 99 06/20/19 11:05 76 27 98 Mechanical Ventilator 40 76 27 40 06/20/19 11:00 80 36 106/52 (70) 98 06/20/19 11:00 36 Endotracheal Tube 40 06/20/19 11:00 102/52 06/20/19 10:30 84 20 102/52 (69) 98 06/20/19 10:00 25 Endotracheal Tube 40 06/20/19 10:00 95/54 06/20/19 10:00 79 26 97/52 (67) 98 06/20/19 09:30 75 26 98/51 (67) 98 06/20/19 09:00 80 26 104/50 (68) 98 06/20/19 09:00 26 Endotracheal Tube 40 06/20/19 09:00 103/52 06/20/19 08:30 82 21 94/75 (81) 99 06/20/19 08:04 25 Endotracheal Tube 70.0 40 06/20/19 08:00 99.0 73 28 105/53 (70) 100 06/20/19 08:00 Mechanical Ventilator 06/20/19 08:00 74 06/20/19 08:00 105/55 5/10/20 08:00 40 06/20/19 07:15 73 26 100 Mechanical Ventilator 40 73 26 40 06/20/19 07:00 102/65 06/20/19 07:00 72 25 101/53 (69) 100 06/20/19 06:30 72 27 105/61 (76) 100 06/20/19 06:00 94/51 06/20/19 06:00 24 Mechanical Ventilator 40 06/20/19 06:00 74 24 94/51 (65) 100 06/20/19 05:30 64 27 114/59 (77) 100 06/20/19 05:00 101/53 06/20/19 05:00 28 Mechanical Ventilator 40 06/20/19 05:00 65 28 101/53 (69) 100 06/20/19 04:30 74 24 97/48 (64) 100 06/20/19 04:00 40 06/20/19 04:00 72 06/20/19 04:00 76 21 109/53 (71) 100 06/20/19 04:00 109/53 06/20/19 04:00 21 Mechanical Ventilator 40 06/20/19 04:00 Mechanical Ventilator 06/20/19 03:30 79 11 93/55 (68) 100 06/20/19 03:00 112/62 06/20/19 03:00 10 Mechanical Ventilator 40 06/20/19 03:00 87 10 112/62 (79) 100 06/20/19 02:30 103 15 109/55 (73) 97 06/20/19 02:00 109 28 160/90 (113) 98 06/20/19 02:00 160/90 06/20/19 02:00 28 Mechanical Ventilator 40 06/20/19 01:41 85 30 40 06/20/19 01:30 86 17 111/68 (82) 100 06/20/19 01:00 83 25 140/71 (94) 99 06/20/19 01:00 140/70 06/20/19 01:00 25 Mechanical Ventilator 40 06/20/19 00:45 124/74 06/20/19 00:30 119/67 06/20/19 00:30 89 25 119/67 (84) 100 06/20/19 00:15 126/68 06/20/19 00:00 97.6 89 23 132/69 (90) 100 06/20/19 00:00 132/69 06/20/19 00:00 23 Mechanical Ventilator 40 06/20/19 00:00 Mechanical Ventilator 06/19/19 23:52 100.1 06/19/19 23:30 90 24 125/73 (90) 100 Intake and Output 06/19/19 06/20/19 19:00 07:00 Intake Total 993.97 ml 1070.20 ml Output Total 30 ml Balance 963.97 ml 1070.20 ml Free Water 200 ml 200 ml IV Total 433.97 ml 630.20 ml Tube Feeding 360 ml 120 ml Other 120 ml Output Urine Total 30 ml # Bowel Movements 1 4 Laboratory Tests Test 06/20/19 06:00 White Blood Count 15.5 K/UL (4.8-10.8) H Red Blood Count 2.50 M/UL (4.70-6.10) L Hemoglobin 7.7 G/DL (14.2-18.0) L Hematocrit 23.4 % (42.0-52.0) L Mean Corpuscular Volume 94 FL (80-99) Mean Corpuscular Hemoglobin 30.6 PG (27.0-31.0) Mean Corpuscular Hemoglobin Concent 32.7 G/DL (32.0-36.0) Red Cell Distribution Width 18.9 % (11.6-14.8) H Platelet Count 227 K/UL (150-450) Mean Platelet Volume 7.7 FL (6.5-10.1) Neutrophils (%) (Auto) % (45.0-75.0) Lymphocytes (%) (Auto) % (20.0-45.0) Monocytes (%) (Auto) % (1.0-10.0) Eosinophils (%) (Auto) % (0.0-3.0) Basophils (%) (Auto) % (0.0-2.0) Differential Total Cells Counted 100 Neutrophils % (Manual) 94 % (45-75) H Lymphocytes % (Manual) 2 % (20-45) L Monocytes % (Manual) 4 % (1-10) Eosinophils % (Manual) 0 % (0-3) Basophils % (Manual) 0 % (0-2) Band Neutrophils 0 % (0-8) Platelet Estimate Adequate Platelet Morphology Normal Polychromasia 1+ Anisocytosis 1+ Sodium Level 128 MMOL/L (136-145) L Potassium Level 3.8 MMOL/L (3.5-5.1) Chloride Level 87 MMOL/L (98-107) L Carbon Dioxide Level 23 MMOL/L (21-32) Anion Gap 18 mmol/L (5-15) H Blood Urea Nitrogen 64 mg/dL (7-18) H Creatinine 8.5 MG/DL (0.55-1.30) H Estimat Glomerular Filtration Rate 6.3 mL/min (>60) Glucose Level 325 MG/DL (74-106) H Calcium Level 8.3 MG/DL (8.5-10.1) L Phosphorus Level 7.0 MG/DL (2.5-4.9) H Magnesium Level 2.1 MG/DL (1.8-2.4) Total Bilirubin 0.4 MG/DL (0.2-1.0) Aspartate Amino Transf (AST/SGOT) 18 U/L (15-37) Alanine Aminotransferase (ALT/SGPT) 7 U/L (12-78) L Alkaline Phosphatase 79 U/L (46-116) Total Protein 7.3 G/DL (6.4-8.2) Albumin 1.7 G/DL (3.4-5.0) L Globulin 5.6 g/dL Albumin/Globulin Ratio 0.3 (1.0-2.7) L Microbiology Date/Time Source Procedure Growth Status 06/18/19 13:32 Nasopharynx Coronavirus COVID-19 PCR ([facility]) - Final Complete Objective HEAD AND NECK: No JVD.Orally intubated LUNGS: Decreased breath sounds. CARDIOVASCULAR: Regular S1 and S2. Tachycardic. ABDOMEN: Soft. EXTREMITIES: No pitting edema. New Left FV Gio Engle MD June 20, 2019 23:22
[2019-06-20] MEDS: NovoLOG Insulin Flexpen SUBQ SCH (23:34)
[2019-06-21] VITALS (54 sets, daily range): BP systolic 82–155; BP diastolic 43–98
[2019-06-21] MEDS: Albuterol 90mcg Inhaler 8gm INH SCH ×7 (00:22→23:58)
[2019-06-21] MEDS: fentaNYL Citrate 2,500 MCG in NS 200 ML IV SCH ×3 (01:06→18:18)
[2019-06-21] MEDS: Norepinephrine Bitartrate 16 MG in D5W 500ml 550 ML IV SCH (01:07)
--- NOTE | 2019-06-21 04:25 | Pulmonolgy Critical Care Note ---
Critical Care - Asmt/Plan Assessment/Plan: Pulmonary CCM Progress Note HPI: Patient is a 68 year old man, group home resident, admitted c/o shortness of breath, cough, noted to have Covid 19 Pneumonia, Respiratory Failure S/p intubation, remains on pressors PRN, CXR improving Septic Shock Preserved EF FIO2 40%, adequate O2 sats, improving, remains on AC HD tolerated Hyponatremia improving Anemia stable Seen earlier on 06/20/2019 ID following On HD per Renal Past Medical History: COPD, CKD, Hypertension, Anemia Hypotension requiring pressors, in ICU Persistently elevated WCC Allergies: No Known Allergies Improving Pulmonary Status on HD Physical Exam Vital Signs Noted Sedated on ventilator WDWN, no distress HEENT: NCAT,moist mm Chest: Occasional rhonchi Heart: HS1, HS2, RRR Abdomen: SNTND, no masses Extremities: Well perfused, no edema 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, no seizures, sedated Impression: COVID-19 virus infection Pneumonia Respiratory failure on ventilator Volume overload improving - on HD Hypotension on pressors Cardiomegaly Lymphopenia Elevated AST COPD Chronic Kidney Disease - HD H/o Hypertension Worsening anemia Plan: Antibiotics per ID HD Pressors PRN ACVC - wean as tolerated once pressors reduced/off 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 Monitor cultures/viral studies PPX Hemodialysis per Renal Psychiatry following [facility] - [facility] requested for when available, [facility] - not available as yet Laboratory Tests Noted: CXR: Hypoventilatory exam, interstitial changes, cardiomegaly, improving infiltrates Subjective ROS Limited/Unobtainable: No Constitutional: Denies: fever Respiratory: Reports: dry cough, shortness of breath Gastrointestinal/Abdominal: Reports: diarrhea, other - colace was stopped Psychiatric: Reports: other - refuses labs Allergies: Coded Allergies: No Known Allergies (Unverified , 05/28/19) All Systems: reviewed and negative except above Labs noted Critical Care - Objective Last 24 Hour Vital Signs Date Time Temp Pulse Resp B/P (MAP) Pulse Ox O2 Delivery O2 Flow Rate FiO2 06/21/19 03:21 98.3 06/21/19 03:00 27 Mechanical Ventilator 40 06/21/19 03:00 119/61 06/21/19 03:00 66 11 130/63 (85) 100 06/21/19 02:30 119/59 06/21/19 02:30 69 27 119/59 (79) 100 06/21/19 02:15 105/57 06/21/19 02:00 24 Mechanical Ventilator 40 06/21/19 02:00 94/54 06/21/19 02:00 98.3 72 26 94/54 (67) 100 06/21/19 01:45 88/51 06/21/19 01:30 95/55 06/21/19 01:30 75 25 95/55 (68) 100 06/21/19 01:15 95/54 06/21/19 01:07 99/56 06/21/19 01:06 20 Mechanical Ventilator 40 06/21/19 01:00 76 25 99/56 (70) 100 06/21/19 01:00 99/56 06/21/19 00:45 120/53 06/21/19 00:30 103/55 06/21/19 00:30 77 18 103/55 (71) 100 06/21/19 00:15 82/49 06/21/19 00:00 111/60 06/21/19 00:00 Mechanical Ventilator 06/21/19 00:00 77 26 111/60 (77) 100 06/20/19 23:45 111/60 06/20/19 23:30 122/64 06/20/19 23:30 89 27 98 Mechanical Ventilator 40 90 26 40 06/20/19 23:30 97.6 85 25 122/64 (83) 100 06/20/19 23:15 127/76 06/20/19 23:00 92 25 134/64 (87) 99 06/20/19 23:00 134/64 06/20/19 22:45 122/62 06/20/19 22:30 142/63 06/20/19 22:30 90 25 142/63 (89) 100 06/20/19 22:15 135/61 06/20/19 22:15 93 25 135/61 (85) 100 06/20/19 22:00 117/56 06/20/19 22:00 93 26 117/56 (76) 100 06/20/19 21:45 144/60 06/20/19 21:45 94 26 144/60 (88) 100 06/20/19 21:30 138/61 06/20/19 21:30 95 26 138/61 (86) 100 06/20/19 21:15 96 26 135/62 (86) 100 51020 21:15 135/62 520 21:00 96 26 138/64 (88) 100 20 21:00 138/64 520 20:45 105 25 94/54 (67) 99 1020 20:45 94/54 20 20:30 88/52 520 20:30 95 25 88/52 (64) 99 20 20:15 112/58 5 20:15 86 26 112/58 (76) 100 06/20/19 20:08 78 26 136/62 (86) 100 06/20/19 20:00 99.4 89 26 74/46 (55) 98 06/20/19 20:00 75 06/20/19 20:00 Mechanical Ventilator 06/20/19 20:00 74/46 06/20/19 20:00 40 06/20/19 19:45 87 26 89/52 (64) 99 06/20/19 19:45 111/59 06/20/19 19:30 95 26 98 Mechanical Ventilator 40 94 26 40 06/20/19 19:30 141/46 06/20/19 19:30 81 26 111/59 (76) 99 06/20/19 19:15 77 26 141/61 (87) 99 06/20/19 19:15 76/46 06/20/19 19:00 90 26 76/46 (56) 98 06/20/19 19:00 26 Endotracheal Tube 40 06/20/19 19:00 141/61 06/20/19 18:45 87 22 123/55 (77) 100 06/20/19 18:30 85 26 113/57 (75) 100 06/20/19 18:16 99.8 06/20/19 18:15 86 26 113/54 (73) 100 20 18:00 86 26 110/55 (73) 99 20 18:00 26 Endotracheal Tube 40 06/20/19 18:00 110/55 06/20/19 17:36 27 Endotracheal Tube 70.0 40 06/20/19 17:35 87 27 103/50 (67) 99 5/10/20 17:30 86 27 103/50 (67) 99 06/20/19 17:05 89 26 82/47 (59) 98 06/20/19 17:00 100.5 89 27 82/47 (59) 98 06/20/19 17:00 27 Endotracheal Tube 40 06/20/19 17:00 82/47 06/20/19 16:30 90 26 91/43 (59) 97 06/20/19 16:00 40 06/20/19 16:00 80 29 105/53 (70) 98 06/20/19 16:00 92 06/20/19 16:00 Mechanical Ventilator 06/20/19 16:00 26 Endotracheal Tube 40 06/20/19 16:00 103/53 06/20/19 15:30 91 26 102/52 (69) 98 06/20/19 15:10 80 26 98 Mechanical Ventilator 40 80 26 40 06/20/19 15:00 20 Endotracheal Tube 40 06/20/19 15:00 103/52 06/20/19 15:00 83 24 103/52 (69) 97 06/20/19 14:30 82 24 108/63 (78) 95 06/20/19 14:00 80 24 98/52 (67) 95 06/20/19 14:00 24 Endotracheal Tube 40 06/20/19 14:00 98/52 06/20/19 13:30 79 24 108/53 (71) 98 06/20/19 13:00 99.5 81 27 96/52 (67) 93 06/20/19 13:00 27 Endotracheal Tube 40 06/20/19 13:00 96/52 06/20/19 12:30 74 26 104/51 (68) 98 06/20/19 12:00 40 06/20/19 12:00 73 17 92/53 (66) 98 06/20/19 12:00 Mechanical Ventilator 06/20/19 12:00 23 Endotracheal Tube 40 06/20/19 12:00 92/53 06/20/19 12:00 75 06/20/19 11:30 74 15 94/45 (61) 99 06/20/19 11:05 76 27 98 Mechanical Ventilator 40 76 27 40 06/20/19 11:00 80 36 106/52 (70) 98 06/20/19 11:00 36 Endotracheal Tube 40 06/20/19 11:00 102/52 06/20/19 10:30 84 20 102/52 (69) 98 06/20/19 10:00 25 Endotracheal Tube 40 06/20/19 10:00 95/54 06/20/19 10:00 79 26 97/52 (67) 98 06/20/19 09:30 75 26 98/51 (67) 98 06/20/19 09:00 80 26 104/50 (68) 98 06/20/19 09:00 26 Endotracheal Tube 40 06/20/19 09:00 103/52 06/20/19 08:30 82 21 94/75 (81) 99 06/20/19 08:04 25 Endotracheal Tube 70.0 40 06/20/19 08:00 99.0 73 28 105/53 (70) 100 06/20/19 08:00 Mechanical Ventilator 06/20/19 08:00 74 06/20/19 08:00 105/55 06/20/19 08:00 40 06/20/19 07:15 73 26 100 Mechanical Ventilator 40 73 26 40 06/20/19 07:00 102/65 06/20/19 07:00 72 25 101/53 (69) 100 06/20/19 06:30 72 27 105/61 (76) 100 06/20/19 06:00 94/51 06/20/19 06:00 24 Mechanical Ventilator 40 06/20/19 06:00 74 24 94/51 (65) 100 06/20/19 05:30 64 27 114/59 (77) 100 06/20/19 05:00 101/53 06/20/19 05:00 28 Mechanical Ventilator 40 06/20/19 05:00 65 28 101/53 (69) 100 06/20/19 04:30 74 24 97/48 (64) 100 Micro: Microbiology Date/Time Source Procedure Growth Status 06/18/19 13:32 Nasopharynx Coronavirus COVID-19 PCR ([facility]) - Final Complete Accucheck: 306 Critical Care - Subjective ROS Limited/Unobtainable: No Condition: critical FI02: 40 Vent Support Breath Rate: 26 Vent Support Mode: AC Vent Tidal Volume: 500 Sputum Amount: Small PEEP: 8.0 PIP: 27 Tube Feeding Amount: 30 I&O: Intake and Output 06/20/19 06/21/19 19:00 07:00 Intake Total 786.96 ml 800.84 ml Output Total 0 ml Balance 786.96 ml 800.84 ml IV Total 496.96 ml 590.84 ml Tube Feeding 290 ml 210 ml Output Urine Total 0 ml # Bowel Movements 1 1 ET-Tube: 7.5 ET Position: 24 Arturo Mckeon MD June 21, 2019 04:25
[2019-06-21] MEDS: Piperacillin/Tazobactam 2.25 GM in D5W 55 ML IVPB SCH ×3 (05:09→21:42)
[2019-06-21] MEDS: Renvela 800mg Pkt NG SCH ×4 (05:09→23:27)
[2019-06-21] MEDS: NovoLOG Insulin Flexpen SUBQ SCH ×4 (06:27→23:28)
[2019-06-21 06:31] LABS: HEMATOCRIT 24.2 % (42.0-52.0); HEMOGLOBIN 7.9 G/DL (14.2-18.0); MEAN CORPUSCULAR VOLUME 94 FL (80-99); PLATELET COUNT 246 K/UL (150-450); RED BLOOD COUNT 2.58 M/UL (4.70-6.10); RED CELL DISTRIBUTION WIDTH 18.9 % (11.6-14.8); WHITE BLOOD COUNT 14.9 K/UL (4.8-10.8)
[2019-06-21 06:41] LABS: ALANINE AMINOTRANSFERASE 10 U/L (12-78); ALBUMIN 1.7 G/DL (3.4-5.0); ALBUMIN/GLOBULIN RATIO 0.3 (1.0-2.7); ALKALINE PHOSPHATASE 77 U/L (46-116); ANION GAP 16 mmol/L (5-15); ASPARTATE AMINO TRANSFERASE 19 U/L (15-37); BILIRUBIN,TOTAL 0.4 MG/DL (0.2-1.0); BLOOD UREA NITROGEN 56 mg/dL (7-18); CALCIUM 7.6 MG/DL (8.5-10.1); CARBON DIOXIDE 23 MMOL/L (21-32); CHLORIDE 89 MMOL/L (98-107); CREATININE 7.6 MG/DL (0.55-1.30); SODIUM 128 MMOL/L (136-145)
[2019-06-21] MEDS: Docusate 100mg/10ml Liq NG SCH ×3 (08:04→18:08)
[2019-06-21] MEDS: Pantoprazole Inj IVP SCH (08:04)
[2019-06-21] MEDS: Enoxaparin 30mg Inj SUBQ SCH (08:05)
[2019-06-21] MEDS: Midodrine 10mg tab NG SCH ×3 (08:05→18:08)
[2019-06-21] MEDS: Allopurinol 100mg Tab NG SCH (08:05)
--- NOTE | 2019-06-21 08:23 | Nephrology Progress Note ---
Assessment/Plan Problem List: (1) CASSANDRA (acute kidney injury) (2) Anemia in chronic kidney disease (CKD) (3) HTN (hypertension) (4) COVID-19 Assessment Acute renal failure most likely superimposed on chronic kidney disease Suspected COVID-19 virus infection Possible Pneumonia, lymphopenia, elevated AST Cardiomegaly, possible CHF COPD Hypertension Anemia, most likely related to chronic kidney disease Plan June 20: Remains intubated on ventilator Dialyzed June 19 next dialysis June 21 Serum sodium 128, will give 250 cc 3% saline Remains full code Discussed with RN Iron panel ordered June 19: Discussed with RN. Patient due for dialysis today. Continue pulmonary support. Remains full code. June 18: Patient dialyzed yesterday June 17 Serum sodium improved but still low Arrange for dialysis tomorrow June 19 Continue per consultants June 17: Due for dialysis today Today's lab reviewed, low serum sodium noted, Emphasized on high sodium bath to dialysis nurse Discussed with SHANIQUE Yuen June 16: Dialyzed yesterday Remains intubated Labs reviewed, serum sodium 131 Plan to dialyze tomorrow June 17 with high sodium bath Discussed with SHANIQUE Yuen June 6: Due for dialysis today Labs reviewed Discussed with RN Transfuse 1 unit of packed RBCs today for low hemoglobin of 7.1 June 5: Blood pressure well maintained Receive dialysis June 13 next hemodialysis June 15June 4: Discussed with RN in ICU Patient did not receive proper dialysis yesterday due to dialysis catheter malfunction Catheter to be adjusted today and dialyzed to be resumed today Continue per consultants Positive for COVID 28 June 2: Patient now intubated on mechanical ventilation Discussed with SHANIQUE Yuen, today June 12 Patient received dialysis yesterday June 10 next hemodialysis June 12 Blood pressure better maintained Today's labs reviewed Continue per consultants Previously patient received dialysis last evening June 05, next dialysis June 07 which was incomplete due to patient's hypotension Will start on midodrine for blood pressure support. Meanwhile continue other pressors as needed Previously Patient is doing poorly, septic, white blood cells are rising, Hypotension somewhat improved We will keep n.p.o. , NG tube for medications, and change medication to IV as needed Patient remains full code Monitor vancomycin level Previously: Patient pulled out his femoral catheter yesterday June 03 which was reinserted by Dr. Mast Patient scheduled for dialysis again June 04, which again was not done due to dialysis nurse citing catheter malfunction Meanwhile continue management per ID, pulmonary , and psych. Meanwhile white blood cell count is rising. Patient blood pressure borderline low. Will check ABG Previously May 31 : I believe patient need dialysis treatment He however needs to competency assessment if can make decisions or not I will communicate with Dr. Mulligan Previously: Per pulmonary and ID advice Adjust blood pressure medication Renal diet Anemia work-up 2D echocardiogram refused Kidney ultrasound refused Jules catheter Urine studies Per orders Subjective ROS Limited/Unobtainable: Yes Objective Objective Last 24 Hour Vital Signs Date Time Temp Pulse Resp B/P (MAP) Pulse Ox O2 Delivery O2 Flow Rate FiO2 06/21/19 07:34 68 3 100 Mechanical Ventilator 40 88 28 40 06/21/19 07:00 24 Mechanical Ventilator 40 06/21/19 07:00 124/71 06/21/19 07:00 74 28 124/71 (88) 99 06/21/19 06:30 79 26 136/80 (98) 100 06/21/19 06:00 26 Mechanical Ventilator 40 06/21/19 06:00 110/62 06/21/19 06:00 74 27 110/62 (78) 100 06/21/19 05:30 82 28 104/57 (73) 100 06/21/19 05:00 98.5 90 26 102/54 (70) 98 06/21/19 05:00 27 Mechanical Ventilator 40 06/21/19 05:00 102/54 06/21/19 04:30 73 26 113/61 (78) 100 06/21/19 04:00 40 06/21/19 04:00 66 22 126/55 (78) 100 06/21/19 04:00 26 Mechanical Ventilator 40 06/21/19 04:00 126/55 06/21/19 04:00 70 06/21/19 04:00 Mechanical Ventilator 06/21/19 03:30 66 0 123/60 (81) 100 06/21/19 03:21 98.3 06/21/19 03:10 86 28 98 Mechanical Ventilator 40 87 29 40 06/21/19 03:00 27 Mechanical Ventilator 40 06/21/19 03:00 119/61 06/21/19 03:00 66 11 130/63 (85) 100 06/21/19 02:30 119/59 06/21/19 02:30 69 27 119/59 (79) 100 06/21/19 02:15 105/57 06/21/19 02:00 24 Mechanical Ventilator 40 06/21/19 02:00 94/54 06/21/19 02:00 98.3 72 26 94/54 (67) 100 06/21/19 01:45 88/51 06/21/19 01:30 95/55 06/21/19 01:30 75 25 95/55 (68) 100 06/21/19 01:15 95/54 06/21/19 01:07 99/56 06/21/19 01:06 20 Mechanical Ventilator 40 06/21/19 01:00 76 25 99/56 (70) 100 06/21/19 01:00 99/56 06/21/19 00:45 120/53 06/21/19 00:30 103/55 06/21/19 00:30 77 18 103/55 (71) 100 06/21/19 00:15 82/49 06/21/19 00:00 111/60 06/21/19 00:00 Mechanical Ventilator 06/21/19 00:00 77 26 111/60 (77) 100 06/20/19 23:45 111/60 06/20/19 23:30 122/64 06/20/19 23:30 89 27 98 Mechanical Ventilator 40 90 26 40 06/20/19 23:30 97.6 85 25 122/64 (83) 100 06/20/19 23:15 127/76 06/20/19 23:00 92 25 134/64 (87) 99 06/20/19 23:00 134/64 06/20/19 22:45 122/62 06/20/19 22:30 142/63 06/20/19 22:30 90 25 142/63 (89) 100 06/20/19 22:15 135/61 06/20/19 22:15 93 25 135/61 (85) 100 06/20/19 22:00 117/56 06/20/19 22:00 93 26 117/56 (76) 100 06/20/19 21:45 144/60 06/20/19 21:45 94 26 144/60 (88) 100 06/20/19 21:30 138/61 06/20/19 21:30 95 26 138/61 (86) 100 06/20/19 21:15 96 26 135/62 (86) 100 20 21:15 135/62 520 21:00 96 26 138/64 (88) 100 06/20/19 21:00 138/64 06/20/19 20:45 105 25 94/54 (67) 99 51020 20:45 94/54 520 20:30 88/52 520 20:30 95 25 88/52 (64) 99 20 20:15 112/58 06/20/19 20:15 86 26 112/58 (76) 100 06/20/19 20:08 78 26 136/62 (86) 100 06/20/19 20:00 99.4 89 26 74/46 (55) 98 06/20/19 20:00 75 06/20/19 20:00 Mechanical Ventilator 06/20/19 20:00 74/46 06/20/19 20:00 40 06/20/19 19:45 87 26 89/52 (64) 99 06/20/19 19:45 111/59 06/20/19 19:30 95 26 98 Mechanical Ventilator 40 94 26 40 06/20/19 19:30 141/46 06/20/19 19:30 81 26 111/59 (76) 99 06/20/19 19:15 77 26 141/61 (87) 99 06/20/19 19:15 76/46 5 19:00 90 26 76/46 (56) 98 20 19:00 26 Endotracheal Tube 40 06/20/19 19:00 141/61 06/20/19 18:45 87 22 123/55 (77) 100 06/20/19 18:30 85 26 113/57 (75) 100 06/20/19 18:16 99.8 06/20/19 18:15 86 26 113/54 (73) 100 06/20/19 18:00 86 26 110/55 (73) 99 20 18:00 26 Endotracheal Tube 40 20 18:00 110/55 20 17:36 27 Endotracheal Tube 70.0 40 20 17:35 87 27 103/50 (67) 99 20 17:30 86 27 103/50 (67) 99 5/10/20 17:05 89 26 82/47 (59) 98 06/20/19 17:00 100.5 89 27 82/47 (59) 98 06/20/19 17:00 27 Endotracheal Tube 40 06/20/19 17:00 82/47 06/20/19 16:30 90 26 91/43 (59) 97 06/20/19 16:00 40 06/20/19 16:00 80 29 105/53 (70) 98 06/20/19 16:00 92 06/20/19 16:00 Mechanical Ventilator 06/20/19 16:00 26 Endotracheal Tube 40 06/20/19 16:00 103/53 06/20/19 15:30 91 26 102/52 (69) 98 06/20/19 15:10 80 26 98 Mechanical Ventilator 40 80 26 40 06/20/19 15:00 20 Endotracheal Tube 40 06/20/19 15:00 103/52 06/20/19 15:00 83 24 103/52 (69) 97 06/20/19 14:30 82 24 108/63 (78) 95 06/20/19 14:00 80 24 98/52 (67) 95 06/20/19 14:00 24 Endotracheal Tube 40 06/20/19 14:00 98/52 06/20/19 13:30 79 24 108/53 (71) 98 06/20/19 13:00 99.5 81 27 96/52 (67) 93 06/20/19 13:00 27 Endotracheal Tube 40 06/20/19 13:00 96/52 06/20/19 12:30 74 26 104/51 (68) 98 06/20/19 12:00 40 06/20/19 12:00 73 17 92/53 (66) 98 06/20/19 12:00 Mechanical Ventilator 06/20/19 12:00 23 Endotracheal Tube 40 06/20/19 12:00 92/53 06/20/19 12:00 75 06/20/19 11:30 74 15 94/45 (61) 99 06/20/19 11:05 76 27 98 Mechanical Ventilator 40 76 27 40 06/20/19 11:00 80 36 106/52 (70) 98 06/20/19 11:00 36 Endotracheal Tube 40 06/20/19 11:00 102/52 06/20/19 10:30 84 20 102/52 (69) 98 06/20/19 10:00 25 Endotracheal Tube 40 06/20/19 10:00 95/54 06/20/19 10:00 79 26 97/52 (67) 98 06/20/19 09:30 75 26 98/51 (67) 98 06/20/19 09:00 80 26 104/50 (68) 98 06/20/19 09:00 26 Endotracheal Tube 40 06/20/19 09:00 103/52 06/20/19 08:30 82 21 94/75 (81) 99 Intake and Output 06/20/19 06/21/19 19:00 07:00 Intake Total 786.96 ml 1313.94 ml Output Total 0 ml 0 ml Balance 786.96 ml 1313.94 ml Free Water 120 ml IV Total 496.96 ml 863.94 ml Tube Feeding 290 ml 330 ml Output Urine Total 0 ml 0 ml # Bowel Movements 1 1 Laboratory Tests 06/21/19 05:30: White Blood Count 14.9H, Red Blood Count 2.58L, Hemoglobin 7.9L, Hematocrit 24.2L, Mean Corpuscular Volume 94, Mean Corpuscular Hemoglobin 30.6, Mean Corpuscular Hemoglobin Concent 32.6, Red Cell Distribution Width 18.9H, Platelet Count 246, Mean Platelet Volume 7.7, Neutrophils (%) (Auto) , Lymphocytes (%) (Auto) , Monocytes (%) (Auto) , Eosinophils (%) (Auto) , Basophils (%) (Auto) , Neutrophils % (Manual) [Pending], Lymphocytes % (Manual) [Pending], Platelet Estimate [Pending], Platelet Morphology [Pending], Sodium Level 128L, Potassium Level 4.0, Chloride Level 89L, Carbon Dioxide Level 23, Anion Gap 16H, Blood Urea Nitrogen 56H, Creatinine 7.6H, Estimat Glomerular Filtration Rate 7.2, Glucose Level 232H, Uric Acid 3.9, Calcium Level 7.6L, Phosphorus Level 6.0H, Magnesium Level 2.1, Total Bilirubin 0.4, Aspartate Amino Transf (AST/SGOT) 19, Alanine Aminotransferase (ALT/SGPT) 10L, Alkaline Phosphatase 77, C-Reactive Protein, Quantitative [Pending], Total Protein 7.5, Albumin 1.7L, Globulin 5.8, Albumin/Globulin Ratio 0.3L Height (Feet): 6 Height (Inches): 1.00 Weight (Pounds): 244 General Appearance: no apparent distress EENT: other - Remains intubated on ventilator Cardiovascular: normal rate Respiratory/Chest: decreased breath sounds Objective No change Mic Cole MD June 21, 2019 08:23
--- NOTE | 2019-06-21 09:48 | Infectious Diseases Prog Note ---
Assessment/Plan Assessment/Plan IMPRESSION: 1. COVID19 pneumonia Positive: 05/27, 05/31 , 06/05, 06/09 & 06/17 2. MRSA carrier. 3. Chronic kidney disease , end-stage renal disease. 4. COPD. 5. Hypertension. 6. Anemia. 7. Hypothyroidism. 8. Hyperlipidemia. 9. Major depression. 10. Leukocytosis 11. Hypotension 12. Hepatitis C 13. Hyperuricemia 14. Diarrhea 15. septic shock 16. Leukocytosis RECOMMENDATIONS: Continue Zosyn Repeat CXR shows slight improvement Finished hydroxychloroquine. Will f/u COVID19 test Subjective ROS Limited/Unobtainable: Yes Constitutional: Denies: fever Cardiovascular: Reports: other - on Levophed Gastrointestinal/Abdominal: Denies: diarrhea Allergies: Coded Allergies: No Known Allergies (Unverified , 05/28/19) Objective Vital Signs Last 24 Hour Vital Signs Date Time Temp Pulse Resp B/P (MAP) Pulse Ox O2 Delivery O2 Flow Rate FiO2 06/21/19 09:36 23 Endotracheal Tube 70.0 40 06/21/19 08:15 102 23 155/98 (117) 99 06/21/19 08:00 40 06/21/19 08:00 19 Endotracheal Tube 40 06/21/19 08:00 135/70 06/21/19 08:00 Mechanical Ventilator 06/21/19 08:00 97.9 86 19 135/70 (91) 100 06/21/19 07:34 68 3 100 Mechanical Ventilator 40 88 28 40 06/21/19 07:30 72 26 120/66 (84) 100 06/21/19 07:00 24 Mechanical Ventilator 40 06/21/19 07:00 124/71 06/21/19 07:00 74 28 124/71 (88) 99 06/21/19 06:30 79 26 136/80 (98) 100 06/21/19 06:00 26 Mechanical Ventilator 40 06/21/19 06:00 110/62 06/21/19 06:00 74 27 110/62 (78) 100 06/21/19 05:30 82 28 104/57 (73) 100 06/21/19 05:00 98.5 90 26 102/54 (70) 98 06/21/19 05:00 27 Mechanical Ventilator 40 06/21/19 05:00 102/54 06/21/19 04:30 73 26 113/61 (78) 100 06/21/19 04:00 40 06/21/19 04:00 66 22 126/55 (78) 100 06/21/19 04:00 26 Mechanical Ventilator 40 06/21/19 04:00 126/55 06/21/19 04:00 70 06/21/19 04:00 Mechanical Ventilator 06/21/19 03:30 66 0 123/60 (81) 100 06/21/19 03:21 98.3 06/21/19 03:10 86 28 98 Mechanical Ventilator 40 87 29 40 06/21/19 03:00 27 Mechanical Ventilator 40 06/21/19 03:00 119/61 06/21/19 03:00 66 11 130/63 (85) 100 06/21/19 02:30 119/59 06/21/19 02:30 69 27 119/59 (79) 100 06/21/19 02:15 105/57 06/21/19 02:00 24 Mechanical Ventilator 40 06/21/19 02:00 94/54 06/21/19 02:00 98.3 72 26 94/54 (67) 100 06/21/19 01:45 88/51 06/21/19 01:30 95/55 06/21/19 01:30 75 25 95/55 (68) 100 06/21/19 01:15 95/54 06/21/19 01:07 99/56 06/21/19 01:06 20 Mechanical Ventilator 40 06/21/19 01:00 76 25 99/56 (70) 100 06/21/19 01:00 99/56 06/21/19 00:45 120/53 06/21/19 00:30 103/55 06/21/19 00:30 77 18 103/55 (71) 100 06/21/19 00:15 82/49 06/21/19 00:00 111/60 06/21/19 00:00 Mechanical Ventilator 06/21/19 00:00 77 26 111/60 (77) 100 06/20/19 23:45 111/60 06/20/19 23:30 122/64 06/20/19 23:30 89 27 98 Mechanical Ventilator 40 90 26 40 06/20/19 23:30 97.6 85 25 122/64 (83) 100 5/10/20 23:15 127/76 5/10/20 23:00 92 25 134/64 (87) 99 06/20/19 23:00 134/64 06/20/19 22:45 122/62 06/20/19 22:30 142/63 06/20/19 22:30 90 25 142/63 (89) 100 06/20/19 22:15 135/61 06/20/19 22:15 93 25 135/61 (85) 100 06/20/19 22:00 117/56 06/20/19 22:00 93 26 117/56 (76) 100 06/20/19 21:45 144/60 06/20/19 21:45 94 26 144/60 (88) 100 06/20/19 21:30 138/61 06/20/19 21:30 95 26 138/61 (86) 100 06/20/19 21:15 96 26 135/62 (86) 100 06/20/19 21:15 135/62 06/20/19 21:00 96 26 138/64 (88) 100 06/20/19 21:00 138/64 06/20/19 20:45 105 25 94/54 (67) 99 06/20/19 20:45 94/54 06/20/19 20:30 88/52 06/20/19 20:30 95 25 88/52 (64) 99 06/20/19 20:15 112/58 06/20/19 20:15 86 26 112/58 (76) 100 06/20/19 20:08 78 26 136/62 (86) 100 06/20/19 20:00 99.4 89 26 74/46 (55) 98 06/20/19 20:00 75 06/20/19 20:00 Mechanical Ventilator 06/20/19 20:00 74/46 06/20/19 20:00 40 06/20/19 19:45 87 26 89/52 (64) 99 06/20/19 19:45 111/59 06/20/19 19:30 95 26 98 Mechanical Ventilator 40 94 26 40 06/20/19 19:30 141/46 06/20/19 19:30 81 26 111/59 (76) 99 06/20/19 19:15 77 26 141/61 (87) 99 06/20/19 19:15 76/46 06/20/19 19:00 90 26 76/46 (56) 98 06/20/19 19:00 26 Endotracheal Tube 40 06/20/19 19:00 141/61 06/20/19 18:45 87 22 123/55 (77) 100 06/20/19 18:30 85 26 113/57 (75) 100 06/20/19 18:16 99.8 06/20/19 18:15 86 26 113/54 (73) 100 06/20/19 18:00 86 26 110/55 (73) 99 06/20/19 18:00 26 Endotracheal Tube 40 06/20/19 18:00 110/55 06/20/19 17:36 27 Endotracheal Tube 70.0 40 06/20/19 17:35 87 27 103/50 (67) 99 06/20/19 17:30 86 27 103/50 (67) 99 06/20/19 17:05 89 26 82/47 (59) 98 06/20/19 17:00 100.5 89 27 82/47 (59) 98 06/20/19 17:00 27 Endotracheal Tube 40 06/20/19 17:00 82/47 06/20/19 16:30 90 26 91/43 (59) 97 06/20/19 16:00 40 06/20/19 16:00 80 29 105/53 (70) 98 06/20/19 16:00 92 06/20/19 16:00 Mechanical Ventilator 06/20/19 16:00 26 Endotracheal Tube 40 06/20/19 16:00 103/53 06/20/19 15:30 91 26 102/52 (69) 98 06/20/19 15:10 80 26 98 Mechanical Ventilator 40 80 26 40 06/20/19 15:00 20 Endotracheal Tube 40 06/20/19 15:00 103/52 06/20/19 15:00 83 24 103/52 (69) 97 06/20/19 14:30 82 24 108/63 (78) 95 06/20/19 14:00 80 24 98/52 (67) 95 06/20/19 14:00 24 Endotracheal Tube 40 06/20/19 14:00 98/52 06/20/19 13:30 79 24 108/53 (71) 98 06/20/19 13:00 99.5 81 27 96/52 (67) 93 5/10/20 13:00 27 Endotracheal Tube 40 06/20/19 13:00 96/52 06/20/19 12:30 74 26 104/51 (68) 98 06/20/19 12:00 40 06/20/19 12:00 73 17 92/53 (66) 98 06/20/19 12:00 Mechanical Ventilator 06/20/19 12:00 23 Endotracheal Tube 40 06/20/19 12:00 92/53 06/20/19 12:00 75 06/20/19 11:30 74 15 94/45 (61) 99 06/20/19 11:05 76 27 98 Mechanical Ventilator 40 76 27 40 06/20/19 11:00 80 36 106/52 (70) 98 06/20/19 11:00 36 Endotracheal Tube 40 06/20/19 11:00 102/52 06/20/19 10:30 84 20 102/52 (69) 98 06/20/19 10:00 25 Endotracheal Tube 40 06/20/19 10:00 95/54 06/20/19 10:00 79 26 97/52 (67) 98 Height (Feet): 6 Height (Inches): 1.00 Weight (Pounds): 244 HEENT: other - orally intubated Respiratory/Chest: other Cardiovascular: tachycardia, other - Subclvian central line Abdomen: soft, non tender, other - NG tube Extremities: no edema Neurologic/Psychiatric: other - sedated Microbiology Date/Time Source Procedure Growth Status 06/18/19 13:32 Nasopharynx Coronavirus COVID-19 PCR ([facility]) - Final Complete Laboratory Tests Test 06/21/19 05:30 White Blood Count 14.9 K/UL (4.8-10.8) H Red Blood Count 2.58 M/UL (4.70-6.10) L Hemoglobin 7.9 G/DL (14.2-18.0) L Hematocrit 24.2 % (42.0-52.0) L Mean Corpuscular Volume 94 FL (80-99) Mean Corpuscular Hemoglobin 30.6 PG (27.0-31.0) Mean Corpuscular Hemoglobin Concent 32.6 G/DL (32.0-36.0) Red Cell Distribution Width 18.9 % (11.6-14.8) H Platelet Count 246 K/UL (150-450) Mean Platelet Volume 7.7 FL (6.5-10.1) Neutrophils (%) (Auto) % (45.0-75.0) Lymphocytes (%) (Auto) % (20.0-45.0) Monocytes (%) (Auto) % (1.0-10.0) Eosinophils (%) (Auto) % (0.0-3.0) Basophils (%) (Auto) % (0.0-2.0) Differential Total Cells Counted 100 Neutrophils % (Manual) 87 % (45-75) H Lymphocytes % (Manual) 10 % (20-45) L Monocytes % (Manual) 2 % (1-10) Eosinophils % (Manual) 1 % (0-3) Basophils % (Manual) 0 % (0-2) Band Neutrophils 0 % (0-8) Platelet Estimate Adequate Platelet Morphology Normal Hypochromasia 3+ Anisocytosis 2+ Sodium Level 128 MMOL/L (136-145) L Potassium Level 4.0 MMOL/L (3.5-5.1) Chloride Level 89 MMOL/L (98-107) L Carbon Dioxide Level 23 MMOL/L (21-32) Anion Gap 16 mmol/L (5-15) H Blood Urea Nitrogen 56 mg/dL (7-18) H Creatinine 7.6 MG/DL (0.55-1.30) H Estimat Glomerular Filtration Rate 7.2 mL/min (>60) Glucose Level 232 MG/DL (74-106) H Uric Acid 3.9 MG/DL (2.6-7.2) Calcium Level 7.6 MG/DL (8.5-10.1) L Phosphorus Level 6.0 MG/DL (2.5-4.9) H Magnesium Level 2.1 MG/DL (1.8-2.4) Total Bilirubin 0.4 MG/DL (0.2-1.0) Aspartate Amino Transf (AST/SGOT) 19 U/L (15-37) Alanine Aminotransferase (ALT/SGPT) 10 U/L (12-78) L Alkaline Phosphatase 77 U/L (46-116) C-Reactive Protein, Quantitative 29.9 mg/dL (0.00-0.90) H Total Protein 7.5 G/DL (6.4-8.2) Albumin 1.7 G/DL (3.4-5.0) L Globulin 5.8 g/dL Albumin/Globulin Ratio 0.3 (1.0-2.7) L Current Medications Medications (Trade) Dose Ordered Sig/Anthony Route PRN Reason Start Time Stop Time Status Last Admin Dose Admin Acetaminophen (Tylenol) 650 mg Q4H PRN NG Temp >100.5 06/13/19 11:00 07/13/19 10:59 06/20/19 17:38 Albuterol Sulfate (Proventil MDI) 2 puff Q4HRT INH 06/06/19 23:00 08/30/19 18:59 06/21/19 07:39 Chlorhexidine Gluconate (Michelle-Hex 2%) 1 applic DAILY@2000 TOPIC 06/07/19 20:00 09/05/19 19:59 06/20/19 20:26 Dextrose (Dextrose 50%) 25 ml Q30M PRN IV Hypoglycemia 06/20/19 19:30 09/18/19 19:29 Dextrose (Dextrose 50%) 50 ml Q30M PRN IV Hypoglycemia 06/20/19 19:30 09/18/19 19:29 Docusate Sodium (Colace) 100 mg THREE TIMES A DAY NG 06/07/19 13:00 07/07/19 12:59 06/21/19 08:04 Dopamine HCl/ Dextrose 250 ml @ 0 mls/hr Q24H PRN IV For hypotension 06/13/19 08:15 09/11/19 08:14 Enoxaparin Sodium (Lovenox) 30 mg DAILY SUBQ 06/07/19 09:00 08/27/19 08:59 06/21/19 08:05 Epoetin Aftab (Epoetin Aftab(ESRD on dialysis)) 10,000 unit FRI-FRI-FRI SUBQ 06/07/19 21:00 08/31/19 20:59 06/18/19 21:46 Fentanyl Citrate 2500 mcg/Sodium Chloride 250 ml @ 0 mls/hr Q24H IV 06/20/19 07:45 06/27/19 07:44 06/21/19 09:36 Hydralazine HCl (Apresoline) 10 mg Q4H PRN IV Blood pressure over 160 systol 06/07/19 10:15 09/05/19 10:14 Insulin Aspart (NovoLOG) EVERY 6 HOURS SUBQ 06/21/19 00:00 09/19/19 00:00 06/21/19 06:27 Metoclopramide HCl (Reglan) 5 mg Q8H PRN IVP Nausea & Vomiting 06/18/19 12:00 07/18/19 11:59 06/19/19 00:50 Midodrine (Pro-Amatine) 10 mg THREE TIMES A DAY NG 06/09/19 13:00 09/07/19 12:59 06/21/19 08:05 Norepinephrine Bitartrate 16 mg/ Dextrose 566 ml @ 0 mls/hr Q24H IV 06/13/19 09:45 07/13/19 09:44 06/21/19 01:07 Pantoprazole (Protonix) 40 mg DAILY IVP 06/19/19 09:00 07/19/19 08:59 06/21/19 08:04 Piperacillin Sod/ Tazobactam Sod 2.25 gm/Dextrose 55 ml @ 110 mls/hr Q8HR IVPB 06/13/19 14:00 06/23/19 13:59 06/21/19 05:09 Sevelamer Carbonate (Renvela) 1,600 mg Q6HR NG 06/14/19 12:00 09/05/19 12:59 06/21/19 05:09 Sodium Chloride 250 ml @ 30 mls/hr ONCE ONCE IV 06/21/19 10:00 06/21/19 18:19 06/21/19 09:36 Vancomycin HCl (Vanco rx to dose) 1 ea DAILY PRN MISC Per rx protocol 06/13/19 11:45 07/13/19 11:44 Vasopressin 100 units/Sodium Chloride 100 ml @ 0 mls/hr Q24H IV 06/12/19 11:00 07/12/19 10:59 06/15/19 11:08 Ted Leyva MD June 21, 2019 09:48
[2019-06-21] MEDS ORDERED: NaCl 3% 500ml 250 ML IV ONE (10:00)
[2019-06-21] MEDS: Vasopressin 100 UNITS in NS 95 ML IV SCH (11:00)
--- NOTE | 2019-06-21 11:31 | General Progress Note ---
Assessment/Plan Status: unchanged Assessment/Plan: 1. Diabetes. 2. Hypertension. 3. Coronary artery disease. 4. COPD. 5. Psychiatric disorder with schizophrenia. 6. History of hepatitis C. 7. HLP. 8. Chronic kidney disease, now with acute renal failure. 9. Anemia. 10. Hypothyroidism. 11. Spinal stenosis. 12. Constipation. 13. GERD. on HD tolerating TF had BM will fu Subjective ROS Limited/Unobtainable: No Allergies: Coded Allergies: No Known Allergies (Unverified , 05/28/19) Objective Last 24 Hour Vital Signs Date Time Temp Pulse Resp B/P (MAP) Pulse Ox O2 Delivery O2 Flow Rate FiO2 06/21/19 11:00 81 25 132/63 (86) 100 06/21/19 10:59 83 28 100 Mechanical Ventilator 40 79 26 40 06/21/19 10:30 70 26 117/64 (81) 100 06/21/19 10:00 75 26 100/50 (67) 100 06/21/19 09:51 72 28 40 06/21/19 09:36 23 Endotracheal Tube 70.0 40 06/21/19 09:30 74 27 94/56 (69) 100 06/21/19 09:00 75 26 94/55 (68) 100 06/21/19 08:45 77 26 101/52 (68) 100 06/21/19 08:30 85 25 109/64 (79) 100 06/21/19 08:15 102 23 155/98 (117) 99 06/21/19 08:00 40 06/21/19 08:00 19 Endotracheal Tube 40 06/21/19 08:00 135/70 06/21/19 08:00 Mechanical Ventilator 06/21/19 08:00 97.9 86 19 135/70 (91) 100 06/21/19 07:34 68 30 100 Mechanical Ventilator 40 88 28 40 06/21/19 07:30 72 26 120/66 (84) 100 06/21/19 07:00 24 Mechanical Ventilator 40 06/21/19 07:00 124/71 06/21/19 07:00 74 28 124/71 (88) 99 06/21/19 06:30 79 26 136/80 (98) 100 06/21/19 06:00 26 Mechanical Ventilator 40 06/21/19 06:00 110/62 06/21/19 06:00 74 27 110/62 (78) 100 06/21/19 05:30 82 28 104/57 (73) 100 06/21/19 05:00 98.5 90 26 102/54 (70) 98 06/21/19 05:00 27 Mechanical Ventilator 40 06/21/19 05:00 102/54 06/21/19 04:30 73 26 113/61 (78) 100 06/21/19 04:00 40 06/21/19 04:00 66 22 126/55 (78) 100 06/21/19 04:00 26 Mechanical Ventilator 40 06/21/19 04:00 126/55 06/21/19 04:00 70 06/21/19 04:00 Mechanical Ventilator 06/21/19 03:30 66 0 123/60 (81) 100 06/21/19 03:21 98.3 06/21/19 03:10 86 28 98 Mechanical Ventilator 40 87 29 40 06/21/19 03:00 27 Mechanical Ventilator 40 06/21/19 03:00 119/61 06/21/19 03:00 66 11 130/63 (85) 100 06/21/19 02:30 119/59 06/21/19 02:30 69 27 119/59 (79) 100 06/21/19 02:15 105/57 06/21/19 02:00 24 Mechanical Ventilator 40 06/21/19 02:00 94/54 06/21/19 02:00 98.3 72 26 94/54 (67) 100 06/21/19 01:45 88/51 06/21/19 01:30 95/55 06/21/19 01:30 75 25 95/55 (68) 100 06/21/19 01:15 95/54 06/21/19 01:07 99/56 06/21/19 01:06 20 Mechanical Ventilator 40 06/21/19 01:00 76 25 99/56 (70) 100 06/21/19 01:00 99/56 06/21/19 00:45 120/53 06/21/19 00:30 103/55 06/21/19 00:30 77 18 103/55 (71) 100 06/21/19 00:15 82/49 06/21/19 00:00 111/60 06/21/19 00:00 Mechanical Ventilator 06/21/19 00:00 77 26 111/60 (77) 100 06/20/19 23:45 111/60 06/20/19 23:30 122/64 06/20/19 23:30 89 27 98 Mechanical Ventilator 40 90 26 40 06/20/19 23:30 97.6 85 25 122/64 (83) 100 06/20/19 23:15 127/76 06/20/19 23:00 92 25 134/64 (87) 99 06/20/19 23:00 134/64 06/20/19 22:45 122/62 06/20/19 22:30 142/63 06/20/19 22:30 90 25 142/63 (89) 100 06/20/19 22:15 135/61 06/20/19 22:15 93 25 135/61 (85) 100 06/20/19 22:00 117/56 06/20/19 22:00 93 26 117/56 (76) 100 06/20/19 21:45 144/60 06/20/19 21:45 94 26 144/60 (88) 100 06/20/19 21:30 138/61 06/20/19 21:30 95 26 138/61 (86) 100 06/20/19 21:15 96 26 135/62 (86) 100 06/20/19 21:15 135/62 06/20/19 21:00 96 26 138/64 (88) 100 06/20/19 21:00 138/64 06/20/19 20:45 105 25 94/54 (67) 99 06/20/19 20:45 94/54 06/20/19 20:30 88/52 06/20/19 20:30 95 25 88/52 (64) 99 06/20/19 20:15 112/58 06/20/19 20:15 86 26 112/58 (76) 100 06/20/19 20:08 78 26 136/62 (86) 100 06/20/19 20:00 99.4 89 26 74/46 (55) 98 06/20/19 20:00 75 06/20/19 20:00 Mechanical Ventilator 06/20/19 20:00 74/46 06/20/19 20:00 40 06/20/19 19:45 87 26 89/52 (64) 99 06/20/19 19:45 111/59 06/20/19 19:30 95 26 98 Mechanical Ventilator 40 94 26 40 06/20/19 19:30 141/46 06/20/19 19:30 81 26 111/59 (76) 99 06/20/19 19:15 77 26 141/61 (87) 99 06/20/19 19:15 76/46 06/20/19 19:00 90 26 76/46 (56) 98 06/20/19 19:00 26 Endotracheal Tube 40 06/20/19 19:00 141/61 06/20/19 18:45 87 22 123/55 (77) 100 06/20/19 18:30 85 26 113/57 (75) 100 06/20/19 18:16 99.8 06/20/19 18:15 86 26 113/54 (73) 100 06/20/19 18:00 86 26 110/55 (73) 99 06/20/19 18:00 26 Endotracheal Tube 40 06/20/19 18:00 110/55 06/20/19 17:36 27 Endotracheal Tube 70.0 40 06/20/19 17:35 87 27 103/50 (67) 99 06/20/19 17:30 86 27 103/50 (67) 99 06/20/19 17:05 89 26 82/47 (59) 98 06/20/19 17:00 100.5 89 27 82/47 (59) 98 06/20/19 17:00 27 Endotracheal Tube 40 06/20/19 17:00 82/47 06/20/19 16:30 90 26 91/43 (59) 97 06/20/19 16:00 40 06/20/19 16:00 80 29 105/53 (70) 98 06/20/19 16:00 92 06/20/19 16:00 Mechanical Ventilator 06/20/19 16:00 26 Endotracheal Tube 40 06/20/19 16:00 103/53 06/20/19 15:30 91 26 102/52 (69) 98 06/20/19 15:10 80 26 98 Mechanical Ventilator 40 80 26 40 06/20/19 15:00 20 Endotracheal Tube 40 06/20/19 15:00 103/52 06/20/19 15:00 83 24 103/52 (69) 97 06/20/19 14:30 82 24 108/63 (78) 95 06/20/19 14:00 80 24 98/52 (67) 95 06/20/19 14:00 24 Endotracheal Tube 40 06/20/19 14:00 98/52 06/20/19 13:30 79 24 108/53 (71) 98 06/20/19 13:00 99.5 81 27 96/52 (67) 93 06/20/19 13:00 27 Endotracheal Tube 40 06/20/19 13:00 96/52 06/20/19 12:30 74 26 104/51 (68) 98 06/20/19 12:00 40 06/20/19 12:00 73 17 92/53 (66) 98 06/20/19 12:00 Mechanical Ventilator 06/20/19 12:00 23 Endotracheal Tube 40 06/20/19 12:00 92/53 06/20/19 12:00 75 Intake and Output 06/20/19 06/21/19 19:00 07:00 Intake Total 786.96 ml 1313.94 ml Output Total 0 ml 0 ml Balance 786.96 ml 1313.94 ml Free Water 120 ml IV Total 496.96 ml 863.94 ml Tube Feeding 290 ml 330 ml Output Urine Total 0 ml 0 ml # Bowel Movements 1 1 Laboratory Tests 06/21/19 05:30: White Blood Count 14.9H, Red Blood Count 2.58L, Hemoglobin 7.9L, Hematocrit 24.2L, Mean Corpuscular Volume 94, Mean Corpuscular Hemoglobin 30.6, Mean Corpuscular Hemoglobin Concent 32.6, Red Cell Distribution Width 18.9H, Platelet Count 246, Mean Platelet Volume 7.7, Neutrophils (%) (Auto) , Lymphocytes (%) (Auto) , Monocytes (%) (Auto) , Eosinophils (%) (Auto) , Basophils (%) (Auto) , Differential Total Cells Counted 100, Neutrophils % ( Manual) 87H, Lymphocytes % (Manual) 10L, Monocytes % (Manual) 2, Eosinophils % ( Manual) 1, Basophils % (Manual) 0, Band Neutrophils 0, Platelet Estimate Adequate, Platelet Morphology Normal, Hypochromasia 3+, Anisocytosis 2+, Sodium Level 128L, Potassium Level 4.0, Chloride Level 89L, Carbon Dioxide Level 23, Anion Gap 16H, Blood Urea Nitrogen 56H, Creatinine 7.6H, Estimat Glomerular Filtration Rate 7.2, Glucose Level 232H, Uric Acid 3.9, Calcium Level 7.6L, Phosphorus Level 6.0H, Magnesium Level 2.1, Total Bilirubin 0.4, Aspartate Amino Transf (AST/SGOT) 19, Alanine Aminotransferase (ALT/SGPT) 10L, Alkaline Phosphatase 77, C-Reactive Protein, Quantitative 29.9H, Total Protein 7.5, Albumin 1.7L, Globulin 5.8, Albumin/Globulin Ratio 0.3L Height (Feet): 6 Height (Inches): 1.00 Weight (Pounds): 244 General Appearance: no apparent distress EENT: normal ENT inspection Neck: supple Cardiovascular: normal rate Respiratory/Chest: decreased breath sounds Abdomen: normal bowel sounds, non tender, soft Extremities: non-tender Marito Ramires MD June 21, 2019 11:31
--- NOTE | 2019-06-21 12:01 | Hematology/Onc Progress Note ---
Assessment/Plan Assessment/Plan Assessment and Recs: # Anemia of chronic disease, likely related ot underlying kidney disease has COIVD19++ --> hgb trend 9-->8-->7.3-->7.9-->6.8->9.5-->10->8.3-->7.7-->7.1-->8.9->8.8->7.7 --> transfuse as needed, hgb goal >7 --> no evidence of hemolysis --> peripheral smear has been reviewed --> epogen started three x a week ==>> transfuse w 2 units 06/08, 06/15, # Leukocytosis likely related to suspected COVID-19 virus infection --> completed plaquenil --> trend smear as needed --> initially 4-->11-->14.5-->21-->26-->21->24--.28-->23-->19-->16.2-->21 --> pulm is aware --> on abx cefepime/vanc->zosyn/vanc --> pressors as needed # Thrombocytopenia/Lymphopenia --> likely related to covid19 --> plt 129k-->186k # Respiratory failure with covid19+ --> s/p vent # Possible Pneumonia --> abx given --> on zosyn and vanc # Cardiomegaly # Transaminitis with Elevated AST # COPD # Chronic Kidney Disease --> per renal hd # Hypertension # Dvt ppx lovenox Appreciate consultation and ernesto Rn Subjective HEENT: Denies: no symptoms, eye pain, blurred vision, tearing, double vision, ear pain, ear discharge, nose pain, nose congestion, throat pain, throat swelling, mouth pain, mouth swelling, other Cardiovascular: Denies: no symptoms, chest pain, edema, irregular heart rate, lightheadedness, palpitations, syncope, other Respiratory: Denies: no symptoms, cough, shortness of breath, SOB with excertion, SOB at rest, sputum, wheezing, other Allergies: Coded Allergies: No Known Allergies (Unverified , 05/28/19) Subjective 06/01 nv, extremely agitated, not allowing labs draws, no night sweats, cbc ordered 06/02 confused, restraints, on abx and plaquenil, hgb 7.9, nrb 15 L 06/03 is with nonrebreather, but not compliant, remains confused 06/05 no bleeding, labs noted, no major bleeding, otherwise comfortable 06/06 labs reviewed, no bleeding, meds noted, no night sweats, on levo and nonrebreather 06/07 labs noted, no bleeding, meds reviewed, no bleeding, wbc higher 06/08 to get 2 units prbc, no night sweats, meds reviewed 06/09 is on cefepime and vanc, labs noted, ernesto Rn, no bleeding 06/10 no major changes, labs reviewed, wbc 28k, on abx, cefepime 06/12 remains in icu, labs noted, no night sweats or bleeding 06/13 sluggish pupils, remains agitated, per psych, no bleding, on vent, wbc sitll high 06/14 still confused, remains on vent, with ng, running nepro, on pressors 06/15 icu, febrile, non verbal, hgb 7.1, blood pending, completed plaq 06/16 remains in the icu, nonverbal, plan for hd tomorrow, ernesto rn 06/17 in icu, on pressor, nonverbal, on abx, no bleeding 06/19 no bleeding, nonverbal in icu, hgb is 7.7 06/20 on zosyn, tube feeds, vent, labs noted, in icu, nv Objective Objective Current Medications Medications (Trade) Dose Ordered Sig/Anthony Route PRN Reason Start Time Stop Time Status Last Admin Dose Admin Acetaminophen (Tylenol) 650 mg Q4H PRN NG Temp >100.5 06/13/19 11:00 07/13/19 10:59 06/20/19 17:38 Albuterol Sulfate (Proventil MDI) 2 puff Q4HRT INH 06/06/19 23:00 08/30/19 18:59 06/21/19 11:02 Chlorhexidine Gluconate (Michelle-Hex 2%) 1 applic DAILY@1999 TOPIC 06/07/19 20:00 09/05/19 19:59 06/20/19 20:26 Dextrose (Dextrose 50%) 25 ml Q30M PRN IV Hypoglycemia 06/20/19 19:30 09/18/19 19:29 Dextrose (Dextrose 50%) 50 ml Q30M PRN IV Hypoglycemia 06/20/19 19:30 09/18/19 19:29 Docusate Sodium (Colace) 100 mg THREE TIMES A DAY NG 06/07/19 13:00 07/07/19 12:59 06/21/19 08:04 Dopamine HCl/ Dextrose 250 ml @ 0 mls/hr Q24H PRN IV For hypotension 06/13/19 08:15 09/11/19 08:14 Enoxaparin Sodium (Lovenox) 30 mg DAILY SUBQ 06/07/19 09:00 08/27/19 08:59 06/21/19 08:05 Epoetin Aftab (Epoetin Aftab(ESRD on dialysis)) 10,000 unit SUBQ 06/07/19 21:00 08/31/19 20:59 06/18/19 21:46 Fentanyl Citrate 2500 mcg/Sodium Chloride 250 ml @ 0 mls/hr Q24H IV 06/20/19 07:45 06/27/19 07:44 06/21/19 09:36 Hydralazine HCl (Apresoline) 10 mg Q4H PRN IV Blood pressure over 160 systol 06/07/19 10:15 09/05/19 10:14 Insulin Aspart (NovoLOG) EVERY 6 HOURS SUBQ 06/21/19 00:00 09/19/19 00:00 06/21/19 06:27 Metoclopramide HCl (Reglan) 5 mg Q8H PRN IVP Nausea & Vomiting 06/18/19 12:00 07/18/19 11:59 06/19/19 00:50 Midodrine (Pro-Amatine) 10 mg THREE TIMES A DAY NG 06/09/19 13:00 09/07/19 12:59 06/21/19 08:05 Norepinephrine Bitartrate 16 mg/ Dextrose 566 ml @ 0 mls/hr Q24H IV 06/13/19 09:45 07/13/19 09:44 06/21/19 01:07 Pantoprazole (Protonix) 40 mg DAILY IVP 06/19/19 09:00 07/19/19 08:59 06/21/19 08:04 Piperacillin Sod/ Tazobactam Sod 2.25 gm/Dextrose 55 ml @ 110 mls/hr Q8HR IVPB 06/13/19 14:00 06/23/19 13:59 06/21/19 05:09 Sevelamer Carbonate (Renvela) 1,600 mg Q6HR NG 06/14/19 12:00 09/05/19 12:59 06/21/19 05:09 Sodium Chloride 250 ml @ 30 mls/hr ONCE ONCE IV 06/21/19 10:00 06/21/19 18:19 06/21/19 09:36 Vancomycin HCl (Vanco rx to dose) 1 ea DAILY PRN MISC Per rx protocol 06/13/19 11:45 07/13/19 11:44 Vasopressin 100 units/Sodium Chloride 100 ml @ 0 mls/hr Q24H IV 06/12/19 11:00 07/12/19 10:59 06/15/19 11:08 Last 24 Hour Vital Signs Date Time Temp Pulse Resp B/P (MAP) Pulse Ox O2 Delivery O2 Flow Rate FiO2 06/21/19 11:00 81 25 132/63 (86) 100 06/21/19 11:00 25 Endotracheal Tube 40 06/21/19 11:00 132/63 06/21/19 10:59 83 28 100 Mechanical Ventilator 40 79 26 40 06/21/19 10:30 70 26 117/64 (81) 100 06/21/19 10:00 75 26 100/50 (67) 100 06/21/19 10:00 26 Endotracheal Tube 40 06/21/19 10:00 111/56 06/21/19 09:51 72 28 40 06/21/19 09:36 23 Endotracheal Tube 70.0 40 06/21/19 09:30 74 27 94/56 (69) 100 06/21/19 09:00 26 Endotracheal Tube 40 06/21/19 09:00 96/54 06/21/19 09:00 75 26 94/55 (68) 100 06/21/19 08:45 77 26 101/52 (68) 100 06/21/19 08:30 85 25 109/64 (79) 100 06/21/19 08:15 102 23 155/98 (117) 99 06/21/19 08:00 40 06/21/19 08:00 19 Endotracheal Tube 40 06/21/19 08:00 135/70 06/21/19 08:00 Mechanical Ventilator 06/21/19 08:00 97.9 86 19 135/70 (91) 100 06/21/19 07:34 68 30 100 Mechanical Ventilator 40 88 28 40 06/21/19 07:30 72 26 120/66 (84) 100 06/21/19 07:13 75 06/21/19 07:00 24 Mechanical Ventilator 40 06/21/19 07:00 124/71 06/21/19 07:00 74 28 124/71 (88) 99 06/21/19 06:30 79 26 136/80 (98) 100 06/21/19 06:00 26 Mechanical Ventilator 40 06/21/19 06:00 110/62 06/21/19 06:00 74 27 110/62 (78) 100 06/21/19 05:30 82 28 104/57 (73) 100 06/21/19 05:00 98.5 90 26 102/54 (70) 98 06/21/19 05:00 27 Mechanical Ventilator 40 06/21/19 05:00 102/54 06/21/19 04:30 73 26 113/61 (78) 100 06/21/19 04:00 40 06/21/19 04:00 66 22 126/55 (78) 100 06/21/19 04:00 26 Mechanical Ventilator 40 06/21/19 04:00 126/55 06/21/19 04:00 70 06/21/19 04:00 Mechanical Ventilator 06/21/19 03:30 66 0 123/60 (81) 100 06/21/19 03:21 98.3 06/21/19 03:10 86 28 98 Mechanical Ventilator 40 87 29 40 06/21/19 03:00 27 Mechanical Ventilator 40 06/21/19 03:00 119/61 06/21/19 03:00 66 11 130/63 (85) 100 06/21/19 02:30 119/59 06/21/19 02:30 69 27 119/59 (79) 100 06/21/19 02:15 105/57 06/21/19 02:00 24 Mechanical Ventilator 40 06/21/19 02:00 94/54 06/21/19 02:00 98.3 72 26 94/54 (67) 100 06/21/19 01:45 88/51 06/21/19 01:30 95/55 06/21/19 01:30 75 25 95/55 (68) 100 06/21/19 01:15 95/54 06/21/19 01:07 99/56 06/21/19 01:06 20 Mechanical Ventilator 40 06/21/19 01:00 76 25 99/56 (70) 100 06/21/19 01:00 99/56 06/21/19 00:45 120/53 06/21/19 00:30 103/55 06/21/19 00:30 77 18 103/55 (71) 100 06/21/19 00:15 82/49 06/21/19 00:00 111/60 06/21/19 00:00 Mechanical Ventilator 06/21/19 00:00 77 26 111/60 (77) 100 06/20/19 23:45 111/60 06/20/19 23:30 122/64 06/20/19 23:30 89 27 98 Mechanical Ventilator 40 90 26 40 06/20/19 23:30 97.6 85 25 122/64 (83) 100 06/20/19 23:15 127/76 06/20/19 23:00 92 25 134/64 (87) 99 06/20/19 23:00 134/64 06/20/19 22:45 122/62 06/20/19 22:30 142/63 06/20/19 22:30 90 25 142/63 (89) 100 06/20/19 22:15 135/61 06/20/19 22:15 93 25 135/61 (85) 100 06/20/19 22:00 117/56 06/20/19 22:00 93 26 117/56 (76) 100 06/20/19 21:45 144/60 06/20/19 21:45 94 26 144/60 (88) 100 06/20/19 21:30 138/61 06/20/19 21:30 95 26 138/61 (86) 100 06/20/19 21:15 96 26 135/62 (86) 100 06/20/19 21:15 135/62 06/20/19 21:00 96 26 138/64 (88) 100 06/20/19 21:00 138/64 06/20/19 20:45 105 25 94/54 (67) 99 06/20/19 20:45 94/54 06/20/19 20:30 88/52 06/20/19 20:30 95 25 88/52 (64) 99 06/20/19 20:15 112/58 06/20/19 20:15 86 26 112/58 (76) 100 06/20/19 20:08 78 26 136/62 (86) 100 06/20/19 20:00 99.4 89 26 74/46 (55) 98 06/20/19 20:00 75 06/20/19 20:00 Mechanical Ventilator 06/20/19 20:00 74/46 06/20/19 20:00 40 06/20/19 19:45 87 26 89/52 (64) 99 06/20/19 19:45 111/59 06/20/19 19:30 95 26 98 Mechanical Ventilator 40 94 26 40 06/20/19 19:30 141/46 06/20/19 19:30 81 26 111/59 (76) 99 06/20/19 19:15 77 26 141/61 (87) 99 06/20/19 19:15 76/46 06/20/19 19:00 90 26 76/46 (56) 98 06/20/19 19:00 26 Endotracheal Tube 40 06/20/19 19:00 141/61 06/20/19 18:45 87 22 123/55 (77) 100 06/20/19 18:30 85 26 113/57 (75) 100 06/20/19 18:16 99.8 06/20/19 18:15 86 26 113/54 (73) 100 06/20/19 18:00 86 26 110/55 (73) 99 06/20/19 18:00 26 Endotracheal Tube 40 06/20/19 18:00 110/55 06/20/19 17:36 27 Endotracheal Tube 70.0 40 06/20/19 17:35 87 27 103/50 (67) 99 06/20/19 17:30 86 27 103/50 (67) 99 06/20/19 17:05 89 26 82/47 (59) 98 06/20/19 17:00 100.5 89 27 82/47 (59) 98 20 17:00 27 Endotracheal Tube 40 06/20/19 17:00 82/47 06/20/19 16:30 90 26 91/43 (59) 97 06/20/19 16:00 40 06/20/19 16:00 80 29 105/53 (70) 98 06/20/19 16:00 92 06/20/19 16:00 Mechanical Ventilator 06/20/19 16:00 26 Endotracheal Tube 40 06/20/19 16:00 103/53 06/20/19 15:30 91 26 102/52 (69) 98 06/20/19 15:10 80 26 98 Mechanical Ventilator 40 80 26 40 06/20/19 15:00 20 Endotracheal Tube 40 06/20/19 15:00 103/52 06/20/19 15:00 83 24 103/52 (69) 97 06/20/19 14:30 82 24 108/63 (78) 95 06/20/19 14:00 80 24 98/52 (67) 95 06/20/19 14:00 24 Endotracheal Tube 40 06/20/19 14:00 98/52 06/20/19 13:30 79 24 108/53 (71) 98 06/20/19 13:00 99.5 81 27 96/52 (67) 93 06/20/19 13:00 27 Endotracheal Tube 40 06/20/19 13:00 96/52 06/20/19 12:30 74 26 104/51 (68) 98 06/20/19 12:00 40 06/20/19 12:00 73 17 92/53 (66) 98 06/20/19 12:00 Mechanical Ventilator 06/20/19 12:00 23 Endotracheal Tube 40 06/20/19 12:00 92/53 06/20/19 12:00 75 06/20/19 11:30 74 15 94/45 (61) 99 06/20/19 11:05 76 27 98 Mechanical Ventilator 40 76 27 40 06/20/19 11:00 80 36 106/52 (70) 98 06/20/19 11:00 36 Endotracheal Tube 40 06/20/19 11:00 102/52 06/20/19 10:30 84 20 102/52 (69) 98 06/20/19 10:00 25 Endotracheal Tube 40 06/20/19 10:00 95/54 06/20/19 10:00 79 26 97/52 (67) 98 06/20/19 09:30 75 26 98/51 (67) 98 06/20/19 09:00 80 26 104/50 (68) 98 06/20/19 09:00 26 Endotracheal Tube 40 06/20/19 09:00 103/52 06/20/19 08:30 82 21 94/75 (81) 99 06/20/19 08:04 25 Endotracheal Tube 70.0 40 06/20/19 08:00 99.0 73 28 105/53 (70) 100 06/20/19 08:00 Mechanical Ventilator 06/20/19 08:00 74 06/20/19 08:00 105/55 06/20/19 08:00 40 06/20/19 07:15 73 26 100 Mechanical Ventilator 40 73 26 40 06/20/19 07:00 102/65 06/20/19 07:00 72 25 101/53 (69) 100 06/20/19 06:30 72 27 105/61 (76) 100 06/20/19 06:00 94/51 06/20/19 06:00 24 Mechanical Ventilator 40 06/20/19 06:00 74 24 94/51 (65) 100 06/20/19 05:30 64 27 114/59 (77) 100 06/20/19 05:00 101/53 06/20/19 05:00 28 Mechanical Ventilator 40 06/20/19 05:00 65 28 101/53 (69) 100 06/20/19 04:30 74 24 97/48 (64) 100 06/20/19 04:00 40 06/20/19 04:00 72 06/20/19 04:00 76 21 109/53 (71) 100 06/20/19 04:00 109/53 06/20/19 04:00 21 Mechanical Ventilator 40 06/20/19 04:00 Mechanical Ventilator 06/20/19 03:30 79 11 93/55 (68) 100 06/20/19 03:00 112/62 06/20/19 03:00 10 Mechanical Ventilator 40 06/20/19 03:00 87 10 112/62 (79) 100 06/20/19 02:30 103 15 109/55 (73) 97 06/20/19 02:00 109 28 160/90 (113) 98 06/20/19 02:00 160/90 06/20/19 02:00 28 Mechanical Ventilator 40 06/20/19 01:41 85 30 40 06/20/19 01:30 86 17 111/68 (82) 100 06/20/19 01:00 83 25 140/71 (94) 99 06/20/19 01:00 140/70 06/20/19 01:00 25 Mechanical Ventilator 40 06/20/19 00:45 124/74 06/20/19 00:30 119/67 06/20/19 00:30 89 25 119/67 (84) 100 06/20/19 00:15 126/68 06/20/19 00:00 97.6 89 23 132/69 (90) 100 06/20/19 00:00 132/69 06/20/19 00:00 23 Mechanical Ventilator 40 06/20/19 00:00 Mechanical Ventilator 06/19/19 23:52 100.1 06/19/19 23:30 90 24 125/73 (90) 100 06/19/19 23:13 26 Mechanical Ventilator 40 06/19/19 23:00 86 15 125/65 (85) 100 06/19/19 23:00 125/65 06/19/19 23:00 15 Mechanical Ventilator 40 06/19/19 22:58 81 31 100 Mechanical Ventilator 40 83 30 40 06/19/19 22:30 79 20 128/67 (87) 100 06/19/19 22:00 117/63 06/19/19 22:00 24 Mechanical Ventilator 40 06/19/19 22:00 79 24 117/63 (81) 100 06/19/19 21:30 74 26 115/66 (82) 100 06/19/19 21:00 109/46 06/19/19 21:00 26 Mechanical Ventilator 40 06/19/19 21:00 76 28 116/57 (76) 100 06/19/19 20:30 76 25 101/55 (70) 100 06/19/19 20:00 100.1 78 25 101/47 (65) 100 06/19/19 20:00 78 06/19/19 20:00 114/44 06/19/19 20:00 26 Mechanical Ventilator 40 06/19/19 20:00 40 06/19/19 20:00 Mechanical Ventilator 06/19/19 19:30 75 17 100/52 (68) 100 06/19/19 19:01 76 27 100 Mechanical Ventilator 40 73 26 40 06/19/19 19:00 108/48 06/19/19 19:00 19 Endotracheal Tube 40 06/19/19 19:00 76 19 108/48 (68) 100 06/19/19 18:30 76 18 96/49 (65) 99 06/19/19 18:00 100/47 06/19/19 18:00 20 Endotracheal Tube 40 06/19/19 18:00 76 15 100/47 (64) 99 06/19/19 17:30 77 11 99/53 (68) 99 06/19/19 17:00 92/49 06/19/19 17:00 28 Endotracheal Tube 40 06/19/19 17:00 76 16 93/50 (64) 99 06/19/19 16:30 75 16 92/48 (63) 97 06/19/19 16:00 40 06/19/19 16:00 Mechanical Ventilator 06/19/19 16:00 22 Endotracheal Tube 40 06/19/19 16:00 75 06/19/19 16:00 88 23 107/48 (67) 97 06/19/19 15:30 76 17 121/62 (81) 99 06/19/19 15:11 72 27 40 06/19/19 15:00 18 Endotracheal Tube 40 06/19/19 15:00 72 16 121/61 (81) 100 06/19/19 14:00 24 Endotracheal Tube 40 06/19/19 14:00 73 18 117/60 (79) 100 06/19/19 13:30 78 16 119/67 (84) 100 06/19/19 13:19 14 Endotracheal Tube 70.0 40 06/19/19 13:00 99.5 73 16 119/64 (82) 100 06/19/19 13:00 117/64 Intake and Output 06/20/19 06/21/19 19:00 07:00 Intake Total 786.96 ml 1313.94 ml Output Total 0 ml 0 ml Balance 786.96 ml 1313.94 ml Free Water 120 ml IV Total 496.96 ml 863.94 ml Tube Feeding 290 ml 330 ml Output Urine Total 0 ml 0 ml # Bowel Movements 1 1 Labs Test 06/19/19 04:00 06/20/19 06:00 06/21/19 05:30 White Blood Count 15.0 K/UL (4.8-10.8) 15.5 K/UL (4.8-10.8) 14.9 K/UL (4.8-10.8) Red Blood Count 2.83 M/UL (4.70-6.10) 2.50 M/UL (4.70-6.10) 2.58 M/UL (4.70-6.10) Hemoglobin 8.7 G/DL (14.2-18.0) 7.7 G/DL (14.2-18.0) 7.9 G/DL (14.2-18.0) Hematocrit 26.7 % (42.0-52.0) 23.4 % (42.0-52.0) 24.2 % (42.0-52.0) Mean Corpuscular Volume 94 FL (80-99) 94 FL (80-99) 94 FL (80-99) Mean Corpuscular Hemoglobin 30.8 PG (27.0-31.0) 30.6 PG (27.0-31.0) 30.6 PG (27.0-31.0) Mean Corpuscular Hemoglobin Concent 32.7 G/DL (32.0-36.0) 32.7 G/DL (32.0-36.0) 32.6 G/DL (32.0-36.0) Red Cell Distribution Width 19.3 % (11.6-14.8) 18.9 % (11.6-14.8) 18.9 % (11.6-14.8) Platelet Count 178 K/UL (150-450) 227 K/UL (150-450) 246 K/UL (150-450) Mean Platelet Volume 8.9 FL (6.5-10.1) 7.7 FL (6.5-10.1) 7.7 FL (6.5-10.1) Neutrophils (%) (Auto) % (45.0-75.0) % (45.0-75.0) % (45.0-75.0) Lymphocytes (%) (Auto) % (20.0-45.0) % (20.0-45.0) % (20.0-45.0) Monocytes (%) (Auto) % (1.0-10.0) % (1.0-10.0) % (1.0-10.0) Eosinophils (%) (Auto) % (0.0-3.0) % (0.0-3.0) % (0.0-3.0) Basophils (%) (Auto) % (0.0-2.0) % (0.0-2.0) % (0.0-2.0) Differential Total Cells Counted 100 100 100 Neutrophils % (Manual) 80 % (45-75) 94 % (45-75) 87 % (45-75) Lymphocytes % (Manual) 7 % (20-45) 2 % (20-45) 10 % (20-45) Monocytes % (Manual) 13 % (1-10) 4 % (1-10) 2 % (1-10) Eosinophils % (Manual) 0 % (0-3) 0 % (0-3) 1 % (0-3) Basophils % (Manual) 0 % (0-2) 0 % (0-2) 0 % (0-2) Band Neutrophils 0 % (0-8) 0 % (0-8) 0 % (0-8) Platelet Estimate Adequate Adequate Adequate Platelet Morphology Normal Normal Normal Hypochromasia 2+ 3+ Anisocytosis 2+ 1+ 2+ Spherocytes 1+ Sodium Level 129 MMOL/L (136-145) 128 MMOL/L (136-145) 128 MMOL/L (136-145) Potassium Level 4.0 MMOL/L (3.5-5.1) 3.8 MMOL/L (3.5-5.1) 4.0 MMOL/L (3.5-5.1) Chloride Level 88 MMOL/L (98-107) 87 MMOL/L (98-107) 89 MMOL/L (98-107) Carbon Dioxide Level 26 MMOL/L (21-32) 23 MMOL/L (21-32) 23 MMOL/L (21-32) Anion Gap 15 mmol/L (5-15) 18 mmol/L (5-15) 16 mmol/L (5-15) Blood Urea Nitrogen 54 mg/dL (7-18) 64 mg/dL (7-18) 56 mg/dL (7-18) Creatinine 7.5 MG/DL (0.55-1.30) 8.5 MG/DL (0.55-1.30) 7.6 MG/DL (0.55-1.30) Estimat Glomerular Filtration Rate 7.3 mL/min (>60) 6.3 mL/min (>60) 7.2 mL/min (>60) Glucose Level 376 MG/DL (74-106) 325 MG/DL (74-106) 232 MG/DL (74-106) Uric Acid 3.8 MG/DL (2.6-7.2) 3.9 MG/DL (2.6-7.2) Calcium Level 8.2 MG/DL (8.5-10.1) 8.3 MG/DL (8.5-10.1) 7.6 MG/DL (8.5-10.1) Phosphorus Level 7.2 MG/DL (2.5-4.9) 7.0 MG/DL (2.5-4.9) 6.0 MG/DL (2.5-4.9) Magnesium Level 2.1 MG/DL (1.8-2.4) 2.1 MG/DL (1.8-2.4) 2.1 MG/DL (1.8-2.4) Total Bilirubin 0.4 MG/DL (0.2-1.0) 0.4 MG/DL (0.2-1.0) 0.4 MG/DL (0.2-1.0) Aspartate Amino Transf (AST/SGOT) 20 U/L (15-37) 18 U/L (15-37) 19 U/L (15-37) Alanine Aminotransferase (ALT/SGPT) 13 U/L (12-78) 7 U/L (12-78) 10 U/L (12-78) Alkaline Phosphatase 85 U/L (46-116) 79 U/L (46-116) 77 U/L (46-116) C-Reactive Protein, Quantitative 27.4 mg/dL (0.00-0.90) 29.9 mg/dL (0.00-0.90) Pro-B-Type Natriuretic Peptide > 06787 pg/mL (0-125) Total Protein 7.7 G/DL (6.4-8.2) 7.3 G/DL (6.4-8.2) 7.5 G/DL (6.4-8.2) Albumin 2.0 G/DL (3.4-5.0) 1.7 G/DL (3.4-5.0) 1.7 G/DL (3.4-5.0) Globulin 5.7 g/dL 5.6 g/dL 5.8 g/dL Albumin/Globulin Ratio 0.4 (1.0-2.7) 0.3 (1.0-2.7) 0.3 (1.0-2.7) Thyroid Stimulating Hormone (TSH) 3.946 uiU/mL (0.358-3.740) Random Vancomycin Level 17.8 ug/mL Polychromasia 1+ Height (Feet): 6 Height (Inches): 1.00 Weight (Pounds): 244 Objective Sp02 EP Interpretation: reviewed General: nv, confused, sedated Heent: bilateral eye normal inspection, bilateral eye PERRL ++Ng Respiratory: normal breath sounds, no respiratory distress,intubated+++ Cardiovascular: regular rate, rhythm, no edema Gastrointestinal: normal inspection, soft, non-distended Rectal: deferred Musculoskeletal: normal range of motion, non-tender Neurologic: alert, motor strength/tone normal, sensory intact, responsive, speech normal Skin: Decubitus/Ulcer - See RN skin exam. : jamaal+ Greg Cabral MD June 21, 2019 12:01
--- NOTE | 2019-06-21 13:40 | Surgery Progress Note ---
Surgery Progress Note Subjective Procedure Performed Right femoral temporary hemodialysis catheter insertion Additional Comments persistent leukocytosis anemia weaning vent non responsive HD soon line functional Objective Last 24 Hour Vital Signs Date Time Temp Pulse Resp B/P (MAP) Pulse Ox O2 Delivery O2 Flow Rate FiO2 06/21/19 11:00 81 25 132/63 (86) 100 06/21/19 11:00 25 Endotracheal Tube 40 06/21/19 11:00 132/63 06/21/19 10:59 83 28 100 Mechanical Ventilator 40 79 26 40 06/21/19 10:30 70 26 117/64 (81) 100 06/21/19 10:00 75 26 100/50 (67) 100 06/21/19 10:00 26 Endotracheal Tube 40 06/21/19 10:00 111/56 06/21/19 09:51 72 28 40 06/21/19 09:36 23 Endotracheal Tube 70.0 40 06/21/19 09:30 74 27 94/56 (69) 100 06/21/19 09:00 26 Endotracheal Tube 40 06/21/19 09:00 96/54 06/21/19 09:00 75 26 94/55 (68) 100 06/21/19 08:45 77 26 101/52 (68) 100 06/21/19 08:30 85 25 109/64 (79) 100 06/21/19 08:15 102 23 155/98 (117) 99 06/21/19 08:00 40 06/21/19 08:00 19 Endotracheal Tube 40 06/21/19 08:00 135/70 06/21/19 08:00 Mechanical Ventilator 06/21/19 08:00 97.9 86 19 135/70 (91) 100 06/21/19 07:34 68 30 100 Mechanical Ventilator 40 88 28 40 06/21/19 07:30 72 26 120/66 (84) 100 06/21/19 07:13 75 06/21/19 07:00 24 Mechanical Ventilator 40 06/21/19 07:00 124/71 06/21/19 07:00 74 28 124/71 (88) 99 06/21/19 06:30 79 26 136/80 (98) 100 06/21/19 06:00 26 Mechanical Ventilator 40 06/21/19 06:00 110/62 06/21/19 06:00 74 27 110/62 (78) 100 06/21/19 05:30 82 28 104/57 (73) 100 06/21/19 05:00 98.5 90 26 102/54 (70) 98 06/21/19 05:00 27 Mechanical Ventilator 40 06/21/19 05:00 102/54 06/21/19 04:30 73 26 113/61 (78) 100 06/21/19 04:00 40 06/21/19 04:00 66 22 126/55 (78) 100 06/21/19 04:00 26 Mechanical Ventilator 40 06/21/19 04:00 126/55 06/21/19 04:00 70 06/21/19 04:00 Mechanical Ventilator 06/21/19 03:30 66 0 123/60 (81) 100 06/21/19 03:21 98.3 06/21/19 03:10 86 28 98 Mechanical Ventilator 40 87 29 40 06/21/19 03:00 27 Mechanical Ventilator 40 06/21/19 03:00 119/61 06/21/19 03:00 66 11 130/63 (85) 100 06/21/19 02:30 119/59 06/21/19 02:30 69 27 119/59 (79) 100 06/21/19 02:15 105/57 06/21/19 02:00 24 Mechanical Ventilator 40 06/21/19 02:00 94/54 06/21/19 02:00 98.3 72 26 94/54 (67) 100 06/21/19 01:45 88/51 06/21/19 01:30 95/55 06/21/19 01:30 75 25 95/55 (68) 100 06/21/19 01:15 95/54 06/21/19 01:07 99/56 06/21/19 01:06 20 Mechanical Ventilator 40 06/21/19 01:00 76 25 99/56 (70) 100 06/21/19 01:00 99/56 06/21/19 00:45 120/53 06/21/19 00:30 103/55 06/21/19 00:30 77 18 103/55 (71) 100 06/21/19 00:15 82/49 06/21/19 00:00 111/60 06/21/19 00:00 Mechanical Ventilator 06/21/19 00:00 77 26 111/60 (77) 100 06/20/19 23:45 111/60 06/20/19 23:30 122/64 06/20/19 23:30 89 27 98 Mechanical Ventilator 40 90 26 40 06/20/19 23:30 97.6 85 25 122/64 (83) 100 06/20/19 23:15 127/76 06/20/19 23:00 92 25 134/64 (87) 99 06/20/19 23:00 134/64 06/20/19 22:45 122/62 06/20/19 22:30 142/63 06/20/19 22:30 90 25 142/63 (89) 100 06/20/19 22:15 135/61 06/20/19 22:15 93 25 135/61 (85) 100 06/20/19 22:00 117/56 06/20/19 22:00 93 26 117/56 (76) 100 06/20/19 21:45 144/60 06/20/19 21:45 94 26 144/60 (88) 100 06/20/19 21:30 138/61 06/20/19 21:30 95 26 138/61 (86) 100 06/20/19 21:15 96 26 135/62 (86) 100 06/20/19 21:15 135/62 06/20/19 21:00 96 26 138/64 (88) 100 06/20/19 21:00 138/64 06/20/19 20:45 105 25 94/54 (67) 99 06/20/19 20:45 94/54 06/20/19 20:30 88/52 06/20/19 20:30 95 25 88/52 (64) 99 06/20/19 20:15 112/58 06/20/19 20:15 86 26 112/58 (76) 100 06/20/19 20:08 78 26 136/62 (86) 100 06/20/19 20:00 99.4 89 26 74/46 (55) 98 06/20/19 20:00 75 06/20/19 20:00 Mechanical Ventilator 06/20/19 20:00 74/46 06/20/19 20:00 40 06/20/19 19:45 87 26 89/52 (64) 99 06/20/19 19:45 111/59 5/10/20 19:30 95 26 98 Mechanical Ventilator 40 94 26 40 06/20/19 19:30 141/46 06/20/19 19:30 81 26 111/59 (76) 99 06/20/19 19:15 77 26 141/61 (87) 99 06/20/19 19:15 76/46 06/20/19 19:00 90 26 76/46 (56) 98 06/20/19 19:00 26 Endotracheal Tube 40 06/20/19 19:00 141/61 06/20/19 18:45 87 22 123/55 (77) 100 06/20/19 18:30 85 26 113/57 (75) 100 06/20/19 18:16 99.8 06/20/19 18:15 86 26 113/54 (73) 100 06/20/19 18:00 86 26 110/55 (73) 99 06/20/19 18:00 26 Endotracheal Tube 40 06/20/19 18:00 110/55 06/20/19 17:36 27 Endotracheal Tube 70.0 40 06/20/19 17:35 87 27 103/50 (67) 99 06/20/19 17:30 86 27 103/50 (67) 99 06/20/19 17:05 89 26 82/47 (59) 98 06/20/19 17:00 100.5 89 27 82/47 (59) 98 06/20/19 17:00 27 Endotracheal Tube 40 06/20/19 17:00 82/47 06/20/19 16:30 90 26 91/43 (59) 97 06/20/19 16:00 40 06/20/19 16:00 80 29 105/53 (70) 98 06/20/19 16:00 92 06/20/19 16:00 Mechanical Ventilator 06/20/19 16:00 26 Endotracheal Tube 40 06/20/19 16:00 103/53 06/20/19 15:30 91 26 102/52 (69) 98 06/20/19 15:10 80 26 98 Mechanical Ventilator 40 80 26 40 06/20/19 15:00 20 Endotracheal Tube 40 06/20/19 15:00 103/52 06/20/19 15:00 83 24 103/52 (69) 97 06/20/19 14:30 82 24 108/63 (78) 95 5/10/20 14:00 80 24 98/52 (67) 95 06/20/19 14:00 24 Endotracheal Tube 40 06/20/19 14:00 98/52 I&O Intake and Output 06/20/19 06/21/19 19:00 07:00 Intake Total 786.96 ml 1313.94 ml Output Total 0 ml 0 ml Balance 786.96 ml 1313.94 ml Free Water 120 ml IV Total 496.96 ml 863.94 ml Tube Feeding 290 ml 330 ml Output Urine Total 0 ml 0 ml # Bowel Movements 1 1 Dressing: other Wound: other Drains: other Cardiovascular: RSR Respiratory: decreased breath sounds Abdomen: soft, non-distended, decreased bowel sounds Extremities: edema, no cyanosis Laboratory Tests Test 06/21/19 05:30 White Blood Count 14.9 K/UL (4.8-10.8) H Red Blood Count 2.58 M/UL (4.70-6.10) L Hemoglobin 7.9 G/DL (14.2-18.0) L Hematocrit 24.2 % (42.0-52.0) L Mean Corpuscular Volume 94 FL (80-99) Mean Corpuscular Hemoglobin 30.6 PG (27.0-31.0) Mean Corpuscular Hemoglobin Concent 32.6 G/DL (32.0-36.0) Red Cell Distribution Width 18.9 % (11.6-14.8) H Platelet Count 246 K/UL (150-450) Mean Platelet Volume 7.7 FL (6.5-10.1) Neutrophils (%) (Auto) % (45.0-75.0) Lymphocytes (%) (Auto) % (20.0-45.0) Monocytes (%) (Auto) % (1.0-10.0) Eosinophils (%) (Auto) % (0.0-3.0) Basophils (%) (Auto) % (0.0-2.0) Differential Total Cells Counted 100 Neutrophils % (Manual) 87 % (45-75) H Lymphocytes % (Manual) 10 % (20-45) L Monocytes % (Manual) 2 % (1-10) Eosinophils % (Manual) 1 % (0-3) Basophils % (Manual) 0 % (0-2) Band Neutrophils 0 % (0-8) Platelet Estimate Adequate Platelet Morphology Normal Hypochromasia 3+ Anisocytosis 2+ Sodium Level 128 MMOL/L (136-145) L Potassium Level 4.0 MMOL/L (3.5-5.1) Chloride Level 89 MMOL/L (98-107) L Carbon Dioxide Level 23 MMOL/L (21-32) Anion Gap 16 mmol/L (5-15) H Blood Urea Nitrogen 56 mg/dL (7-18) H Creatinine 7.6 MG/DL (0.55-1.30) H Estimat Glomerular Filtration Rate 7.2 mL/min (>60) Glucose Level 232 MG/DL (74-106) H Uric Acid 3.9 MG/DL (2.6-7.2) Calcium Level 7.6 MG/DL (8.5-10.1) L Phosphorus Level 6.0 MG/DL (2.5-4.9) H Magnesium Level 2.1 MG/DL (1.8-2.4) Total Bilirubin 0.4 MG/DL (0.2-1.0) Aspartate Amino Transf (AST/SGOT) 19 U/L (15-37) Alanine Aminotransferase (ALT/SGPT) 10 U/L (12-78) L Alkaline Phosphatase 77 U/L (46-116) C-Reactive Protein, Quantitative 29.9 mg/dL (0.00-0.90) H Total Protein 7.5 G/DL (6.4-8.2) Albumin 1.7 G/DL (3.4-5.0) L Globulin 5.8 g/dL Albumin/Globulin Ratio 0.3 (1.0-2.7) L Plan Problems: (1) Suspected COVID-19 virus infection (2) HTN (hypertension) (3) CASSANDRA (acute kidney injury) Assessment & Plan: Needs urgent HD needs access patient okay and consented see note will follow with recs new line placed discussed with team and nephrology HD line functional when checked has TPA now please use appropriately Cathflo used again this flow during dialysis on 430 was low. Will monitor may need line change 5/4 plan for HD as per renal may need to take fluid off with HD edema anasarca (4) Anemia in chronic kidney disease (CKD) (5) Anemia (6) Renal failure (7) Suspected COVID-19 virus infection (8) COVID-19 Assessment & Plan: COVID + c diff negative febrile leukocytosis renal insufficiency see above cont resp care Rx as per ID worsening on vent support now cxr noted on pressors prognosis guarded repeat covid ++ weaning vent and pressors off slowly showing improvement Yaniv Mast June 21, 2019 13:40
--- NOTE | 2019-06-21 14:26 | Cardiac Electrophysiology PN ---
Assessment/Plan Assessment/Plan 1. Elevated troponin. Troponin on May 27 and May 30 were negative; however , on June 01, it was elevated at 0.074. Repeat 0.05. Likely due to renal failure. On Aspirin. EF 60%. 2. Septic shock. On Levo 8 mc and iv ABx 3. ESRD, on hemodialysis per Dr. Cole. 4. Respiratory failure due to COVID-19 positive pneumonia. Still febrile On the Vent with 40% Fio2. Fu by Dr. Leyva and Dr. Mckeon. 5. MRSA carrier. 6. COPD. 7. Anemia. 8. Depression. 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 In SR. Is Covid positive x 3. Couldn't be weaned from the vent or the Levo Objective Last 24 Hour Vital Signs Date Time Temp Pulse Resp B/P (MAP) Pulse Ox O2 Delivery O2 Flow Rate FiO2 06/21/19 14:00 74 24 90/44 (59) 100 06/21/19 13:30 74 25 92/50 (64) 99 06/21/19 13:00 73 26 104/55 (71) 100 06/21/19 12:30 71 26 105/58 (74) 100 06/21/19 12:00 Mechanical Ventilator 06/21/19 12:00 97.9 75 27 112/59 (76) 100 06/21/19 12:00 40 06/21/19 11:30 82 24 130/67 (88) 100 06/21/19 11:00 81 25 132/63 (86) 100 06/21/19 11:00 25 Endotracheal Tube 40 06/21/19 11:00 132/63 06/21/19 10:59 83 28 100 Mechanical Ventilator 40 79 26 40 06/21/19 10:30 70 26 117/64 (81) 100 06/21/19 10:00 75 26 100/50 (67) 100 06/21/19 10:00 26 Endotracheal Tube 40 06/21/19 10:00 111/56 06/21/19 09:51 72 28 40 06/21/19 09:36 23 Endotracheal Tube 70.0 40 06/21/19 09:30 74 27 94/56 (69) 100 06/21/19 09:00 26 Endotracheal Tube 40 06/21/19 09:00 96/54 06/21/19 09:00 75 26 94/55 (68) 100 06/21/19 08:45 77 26 101/52 (68) 100 06/21/19 08:30 85 25 109/64 (79) 100 06/21/19 08:15 102 23 155/98 (117) 99 06/21/19 08:00 40 06/21/19 08:00 19 Endotracheal Tube 40 06/21/19 08:00 135/70 06/21/19 08:00 Mechanical Ventilator 06/21/19 08:00 97.9 86 19 135/70 (91) 100 06/21/19 07:34 68 30 100 Mechanical Ventilator 40 88 28 40 06/21/19 07:30 72 26 120/66 (84) 100 06/21/19 07:13 75 06/21/19 07:00 24 Mechanical Ventilator 40 06/21/19 07:00 124/71 06/21/19 07:00 74 28 124/71 (88) 99 06/21/19 06:30 79 26 136/80 (98) 100 06/21/19 06:00 26 Mechanical Ventilator 40 06/21/19 06:00 110/62 06/21/19 06:00 74 27 110/62 (78) 100 06/21/19 05:30 82 28 104/57 (73) 100 06/21/19 05:00 98.5 90 26 102/54 (70) 98 06/21/19 05:00 27 Mechanical Ventilator 40 06/21/19 05:00 102/54 06/21/19 04:30 73 26 113/61 (78) 100 06/21/19 04:00 40 06/21/19 04:00 66 22 126/55 (78) 100 06/21/19 04:00 26 Mechanical Ventilator 40 06/21/19 04:00 126/55 06/21/19 04:00 70 06/21/19 04:00 Mechanical Ventilator 06/21/19 03:30 66 0 123/60 (81) 100 06/21/19 03:21 98.3 06/21/19 03:10 86 28 98 Mechanical Ventilator 40 87 29 40 06/21/19 03:00 27 Mechanical Ventilator 40 06/21/19 03:00 119/61 06/21/19 03:00 66 11 130/63 (85) 100 06/21/19 02:30 119/59 06/21/19 02:30 69 27 119/59 (79) 100 06/21/19 02:15 105/57 06/21/19 02:00 24 Mechanical Ventilator 40 06/21/19 02:00 94/54 06/21/19 02:00 98.3 72 26 94/54 (67) 100 06/21/19 01:45 88/51 06/21/19 01:30 95/55 06/21/19 01:30 75 25 95/55 (68) 100 06/21/19 01:15 95/54 06/21/19 01:07 99/56 06/21/19 01:06 20 Mechanical Ventilator 40 06/21/19 01:00 76 25 99/56 (70) 100 06/21/19 01:00 99/56 06/21/19 00:45 120/53 06/21/19 00:30 103/55 06/21/19 00:30 77 18 103/55 (71) 100 06/21/19 00:15 82/49 06/21/19 00:00 111/60 06/21/19 00:00 Mechanical Ventilator 06/21/19 00:00 77 26 111/60 (77) 100 06/20/19 23:45 111/60 06/20/19 23:30 122/64 06/20/19 23:30 89 27 98 Mechanical Ventilator 40 90 26 40 06/20/19 23:30 97.6 85 25 122/64 (83) 100 06/20/19 23:15 127/76 06/20/19 23:00 92 25 134/64 (87) 99 06/20/19 23:00 134/64 06/20/19 22:45 122/62 06/20/19 22:30 142/63 06/20/19 22:30 90 25 142/63 (89) 100 06/20/19 22:15 135/61 06/20/19 22:15 93 25 135/61 (85) 100 06/20/19 22:00 117/56 06/20/19 22:00 93 26 117/56 (76) 100 06/20/19 21:45 144/60 06/20/19 21:45 94 26 144/60 (88) 100 5/10/20 21:30 138/61 520 21:30 95 26 138/61 (86) 100 06/20/19 21:15 96 26 135/62 (86) 100 520 21:15 135/62 520 21:00 96 26 138/64 (88) 100 1020 21:00 138/64 520 20:45 105 25 94/54 (67) 99 20 20:45 94/54 20 20:30 88/52 520 20:30 95 25 88/52 (64) 99 06/20/19 20:15 112/58 06/20/19 20:15 86 26 112/58 (76) 100 06/20/19 20:08 78 26 136/62 (86) 100 06/20/19 20:00 99.4 89 26 74/46 (55) 98 06/20/19 20:00 75 06/20/19 20:00 Mechanical Ventilator 06/20/19 20:00 74/46 06/20/19 20:00 40 06/20/19 19:45 87 26 89/52 (64) 99 06/20/19 19:45 111/59 06/20/19 19:30 95 26 98 Mechanical Ventilator 40 94 26 40 06/20/19 19:30 141/46 06/20/19 19:30 81 26 111/59 (76) 99 06/20/19 19:15 77 26 141/61 (87) 99 06/20/19 19:15 76/46 06/20/19 19:00 90 26 76/46 (56) 98 06/20/19 19:00 26 Endotracheal Tube 40 06/20/19 19:00 141/61 06/20/19 18:45 87 22 123/55 (77) 100 06/20/19 18:30 85 26 113/57 (75) 100 06/20/19 18:16 99.8 06/20/19 18:15 86 26 113/54 (73) 100 06/20/19 18:00 86 26 110/55 (73) 99 20 18:00 26 Endotracheal Tube 40 06/20/19 18:00 110/55 06/20/19 17:36 27 Endotracheal Tube 70.0 40 06/20/19 17:35 87 27 103/50 (67) 99 06/20/19 17:30 86 27 103/50 (67) 99 06/20/19 17:05 89 26 82/47 (59) 98 06/20/19 17:00 100.5 89 27 82/47 (59) 98 06/20/19 17:00 27 Endotracheal Tube 40 06/20/19 17:00 82/47 06/20/19 16:30 90 26 91/43 (59) 97 06/20/19 16:00 40 06/20/19 16:00 80 29 105/53 (70) 98 06/20/19 16:00 92 06/20/19 16:00 Mechanical Ventilator 06/20/19 16:00 26 Endotracheal Tube 40 06/20/19 16:00 103/53 06/20/19 15:30 91 26 102/52 (69) 98 06/20/19 15:10 80 26 98 Mechanical Ventilator 40 80 26 40 06/20/19 15:00 20 Endotracheal Tube 40 06/20/19 15:00 103/52 06/20/19 15:00 83 24 103/52 (69) 97 06/20/19 14:30 82 24 108/63 (78) 95 Intake and Output 06/20/19 06/21/19 19:00 07:00 Intake Total 786.96 ml 1313.94 ml Output Total 0 ml 0 ml Balance 786.96 ml 1313.94 ml Free Water 120 ml IV Total 496.96 ml 863.94 ml Tube Feeding 290 ml 330 ml Output Urine Total 0 ml 0 ml # Bowel Movements 1 1 Laboratory Tests Test 06/21/19 05:30 White Blood Count 14.9 K/UL (4.8-10.8) H Red Blood Count 2.58 M/UL (4.70-6.10) L Hemoglobin 7.9 G/DL (14.2-18.0) L Hematocrit 24.2 % (42.0-52.0) L Mean Corpuscular Volume 94 FL (80-99) Mean Corpuscular Hemoglobin 30.6 PG (27.0-31.0) Mean Corpuscular Hemoglobin Concent 32.6 G/DL (32.0-36.0) Red Cell Distribution Width 18.9 % (11.6-14.8) H Platelet Count 246 K/UL (150-450) Mean Platelet Volume 7.7 FL (6.5-10.1) Neutrophils (%) (Auto) % (45.0-75.0) Lymphocytes (%) (Auto) % (20.0-45.0) Monocytes (%) (Auto) % (1.0-10.0) Eosinophils (%) (Auto) % (0.0-3.0) Basophils (%) (Auto) % (0.0-2.0) Differential Total Cells Counted 100 Neutrophils % (Manual) 87 % (45-75) H Lymphocytes % (Manual) 10 % (20-45) L Monocytes % (Manual) 2 % (1-10) Eosinophils % (Manual) 1 % (0-3) Basophils % (Manual) 0 % (0-2) Band Neutrophils 0 % (0-8) Platelet Estimate Adequate Platelet Morphology Normal Hypochromasia 3+ Anisocytosis 2+ Sodium Level 128 MMOL/L (136-145) L Potassium Level 4.0 MMOL/L (3.5-5.1) Chloride Level 89 MMOL/L (98-107) L Carbon Dioxide Level 23 MMOL/L (21-32) Anion Gap 16 mmol/L (5-15) H Blood Urea Nitrogen 56 mg/dL (7-18) H Creatinine 7.6 MG/DL (0.55-1.30) H Estimat Glomerular Filtration Rate 7.2 mL/min (>60) Glucose Level 232 MG/DL (74-106) H Uric Acid 3.9 MG/DL (2.6-7.2) Calcium Level 7.6 MG/DL (8.5-10.1) L Phosphorus Level 6.0 MG/DL (2.5-4.9) H Magnesium Level 2.1 MG/DL (1.8-2.4) Total Bilirubin 0.4 MG/DL (0.2-1.0) Aspartate Amino Transf (AST/SGOT) 19 U/L (15-37) Alanine Aminotransferase (ALT/SGPT) 10 U/L (12-78) L Alkaline Phosphatase 77 U/L (46-116) C-Reactive Protein, Quantitative 29.9 mg/dL (0.00-0.90) H Total Protein 7.5 G/DL (6.4-8.2) Albumin 1.7 G/DL (3.4-5.0) L Globulin 5.8 g/dL Albumin/Globulin Ratio 0.3 (1.0-2.7) L Objective HEAD AND NECK: No JVD.Orally intubated LUNGS: Decreased breath sounds. CARDIOVASCULAR: Regular S1 and S2. Tachycardic. ABDOMEN: Soft. EXTREMITIES: No pitting edema. New Left [facility] Gio Engle MD June 21, 2019 14:26
[2019-06-21] MEDS: Dyna-Hex 2% Top Sol 2oz TOPIC SCH (20:13)
[2019-06-21] MEDS: Epoetin Alfa-EPBX(ESRD on dialysis)10,000 unit/ml vial SUBQ SCH (20:48)
--- NOTE | 2019-06-21 21:41 | General Progress Note ---
Assessment/Plan Problem List: (1) Anemia ICD Codes: D64.9 - Anemia, unspecified SNOMED: 181699392 (2) Renal failure ICD Codes: N19 - Unspecified kidney failure SNOMED: 05662208 (3) Suspected COVID-19 virus infection ICD Codes: R68.89 - Other general symptoms and signs SNOMED: 631838651 (4) HTN (hypertension) ICD Codes: I10 - Essential (primary) hypertension SNOMED: 05324103 (5) CASSANDRA (acute kidney injury) ICD Codes: N17.9 - Acute kidney failure, unspecified SNOMED: 2153655, 21220841 (6) Anemia in chronic kidney disease (CKD) ICD Codes: N18.9 - Chronic kidney disease, unspecified; D63.1 - Anemia in chronic kidney disease SNOMED: 593334647 (7) Suspected COVID-19 virus infection ICD Codes: R68.89 - Other general symptoms and signs SNOMED: 257041918 Status: unchanged Assessment/Plan: weak HD lyte ab renal failure not improving poor prognosis reviewed chart and labs pna covid positve resp failure sepsis hyponatrmia persistent leukocytosis anemia Subjective ROS Limited/Unobtainable: Yes Allergies: Coded Allergies: No Known Allergies (Unverified , 05/28/19) Objective Last 24 Hour Vital Signs Date Time Temp Pulse Resp B/P (MAP) Pulse Ox O2 Delivery O2 Flow Rate FiO2 06/21/19 21:30 98.6 68 25 100/49 (66) 100 06/21/19 21:00 27 Mechanical Ventilator 40 06/21/19 21:00 100/49 06/21/19 21:00 69 25 100/51 (67) 100 06/21/19 20:30 67 25 123/64 (83) 100 06/21/19 20:01 69 28 100 Mechanical Ventilator 40 65 27 40 06/21/19 20:00 Mechanical Ventilator 06/21/19 20:00 99.1 68 26 124/59 (80) 100 06/21/19 20:00 26 Mechanical Ventilator 40 06/21/19 20:00 124/59 06/21/19 20:00 76 06/21/19 20:00 40 06/21/19 19:30 73 26 97/52 (67) 100 06/21/19 19:00 83 25 83/50 (61) 100 06/21/19 19:00 25 Endotracheal Tube 40 06/21/19 19:00 83/50 06/21/19 18:45 86 26 87/43 (58) 100 06/21/19 18:30 87 25 85/44 (58) 100 06/21/19 18:18 27 Endotracheal Tube 70.0 40 06/21/19 18:15 87 26 93/48 (63) 100 06/21/19 18:00 98.5 84 26 91/49 (63) 100 06/21/19 18:00 26 Endotracheal Tube 40 06/21/19 18:00 93/48 06/21/19 17:30 83 25 127/53 (77) 100 06/21/19 17:00 70 27 102/50 (67) 100 06/21/19 17:00 27 Bi-pap 40 06/21/19 17:00 99/50 06/21/19 16:45 71 26 104/51 (68) 100 06/21/19 16:30 95.6 73 26 89/50 (63) 100 06/21/19 16:30 89/50 06/21/19 16:15 78 26 82/46 (58) 100 06/21/19 16:00 84 26 97/55 (69) 100 06/21/19 16:00 26 Endotracheal Tube 40 06/21/19 16:00 97/55 06/21/19 16:00 Mechanical Ventilator 06/21/19 16:00 61 06/21/19 16:00 40 06/21/19 15:30 65 26 111/59 (76) 100 06/21/19 15:29 61 06/21/19 15:25 60 26 100 Mechanical Ventilator 40 60 26 40 06/21/19 15:00 26 Endotracheal Tube 40 06/21/19 15:00 112/54 06/21/19 15:00 63 26 112/54 (73) 100 06/21/19 14:30 65 27 103/53 (70) 100 06/21/19 14:00 24 Endotracheal Tube 40 06/21/19 14:00 90/44 06/21/19 14:00 74 24 90/44 (59) 100 06/21/19 13:30 74 25 92/50 (64) 99 06/21/19 13:00 73 26 104/55 (71) 100 06/21/19 13:00 26 Endotracheal Tube 40 06/21/19 13:00 93/52 06/21/19 12:30 71 26 105/58 (74) 100 06/21/19 12:00 Mechanical Ventilator 06/21/19 12:00 Mechanical Ventilator 06/21/19 12:00 97.9 75 27 112/59 (76) 100 06/21/19 12:00 27 Endotracheal Tube 40 06/21/19 12:00 127/62 06/21/19 12:00 40 06/21/19 11:35 74 06/21/19 11:30 82 24 130/67 (88) 100 06/21/19 11:00 81 25 132/63 (86) 100 06/21/19 11:00 25 Endotracheal Tube 40 06/21/19 11:00 132/63 06/21/19 10:59 83 28 100 Mechanical Ventilator 40 79 26 40 06/21/19 10:30 70 26 117/64 (81) 100 06/21/19 10:00 75 26 100/50 (67) 100 06/21/19 10:00 26 Endotracheal Tube 40 06/21/19 10:00 111/56 06/21/19 09:51 72 28 40 06/21/19 09:36 23 Endotracheal Tube 70.0 40 06/21/19 09:30 74 27 94/56 (69) 100 06/21/19 09:00 26 Endotracheal Tube 40 06/21/19 09:00 96/54 06/21/19 09:00 75 26 94/55 (68) 100 06/21/19 08:45 77 26 101/52 (68) 100 06/21/19 08:30 85 25 109/64 (79) 100 06/21/19 08:15 102 23 155/98 (117) 99 06/21/19 08:00 40 06/21/19 08:00 19 Endotracheal Tube 40 06/21/19 08:00 135/70 06/21/19 08:00 Mechanical Ventilator 06/21/19 08:00 97.9 86 19 135/70 (91) 100 06/21/19 07:34 68 30 100 Mechanical Ventilator 40 88 28 40 06/21/19 07:30 72 26 120/66 (84) 100 06/21/19 07:13 75 06/21/19 07:00 24 Mechanical Ventilator 40 06/21/19 07:00 124/71 06/21/19 07:00 74 28 124/71 (88) 99 06/21/19 06:30 79 26 136/80 (98) 100 06/21/19 06:00 26 Mechanical Ventilator 40 06/21/19 06:00 110/62 06/21/19 06:00 74 27 110/62 (78) 100 06/21/19 05:30 82 28 104/57 (73) 100 06/21/19 05:00 98.5 90 26 102/54 (70) 98 06/21/19 05:00 27 Mechanical Ventilator 40 06/21/19 05:00 102/54 06/21/19 04:30 73 26 113/61 (78) 100 06/21/19 04:00 40 06/21/19 04:00 66 22 126/55 (78) 100 06/21/19 04:00 26 Mechanical Ventilator 40 06/21/19 04:00 126/55 06/21/19 04:00 70 06/21/19 04:00 Mechanical Ventilator 06/21/19 03:30 66 0 123/60 (81) 100 06/21/19 03:21 98.3 06/21/19 03:10 86 28 98 Mechanical Ventilator 40 87 29 40 06/21/19 03:00 27 Mechanical Ventilator 40 06/21/19 03:00 119/61 06/21/19 03:00 66 11 130/63 (85) 100 06/21/19 02:30 119/59 06/21/19 02:30 69 27 119/59 (79) 100 06/21/19 02:15 105/57 06/21/19 02:00 24 Mechanical Ventilator 40 06/21/19 02:00 94/54 06/21/19 02:00 98.3 72 26 94/54 (67) 100 06/21/19 01:45 88/51 06/21/19 01:30 95/55 06/21/19 01:30 75 25 95/55 (68) 100 06/21/19 01:15 95/54 06/21/19 01:07 99/56 06/21/19 01:06 20 Mechanical Ventilator 40 06/21/19 01:00 76 25 99/56 (70) 100 06/21/19 01:00 99/56 06/21/19 00:45 120/53 06/21/19 00:30 103/55 06/21/19 00:30 77 18 103/55 (71) 100 06/21/19 00:15 82/49 06/21/19 00:00 111/60 06/21/19 00:00 Mechanical Ventilator 06/21/19 00:00 77 26 111/60 (77) 100 06/20/19 23:45 111/60 06/20/19 23:30 122/64 06/20/19 23:30 89 27 98 Mechanical Ventilator 40 90 26 40 06/20/19 23:30 97.6 85 25 122/64 (83) 100 06/20/19 23:15 127/76 06/20/19 23:00 92 25 134/64 (87) 99 06/20/19 23:00 134/64 06/20/19 22:45 122/62 06/20/19 22:30 142/63 06/20/19 22:30 90 25 142/63 (89) 100 06/20/19 22:15 135/61 06/20/19 22:15 93 25 135/61 (85) 100 06/20/19 22:00 117/56 06/20/19 22:00 93 26 117/56 (76) 100 06/20/19 21:45 144/60 06/20/19 21:45 94 26 144/60 (88) 100 Intake and Output 06/20/19 06/21/19 19:00 07:00 Intake Total 786.96 ml 1313.94 ml Output Total 0 ml 0 ml Balance 786.96 ml 1313.94 ml Free Water 120 ml IV Total 496.96 ml 863.94 ml Tube Feeding 290 ml 330 ml Output Urine Total 0 ml 0 ml # Bowel Movements 1 1 Laboratory Tests 06/21/19 05:30: White Blood Count 14.9H, Red Blood Count 2.58L, Hemoglobin 7.9L, Hematocrit 24.2L, Mean Corpuscular Volume 94, Mean Corpuscular Hemoglobin 30.6, Mean Corpuscular Hemoglobin Concent 32.6, Red Cell Distribution Width 18.9H, Platelet Count 246, Mean Platelet Volume 7.7, Neutrophils (%) (Auto) , Lymphocytes (%) (Auto) , Monocytes (%) (Auto) , Eosinophils (%) (Auto) , Basophils (%) (Auto) , Differential Total Cells Counted 100, Neutrophils % ( Manual) 87H, Lymphocytes % (Manual) 10L, Monocytes % (Manual) 2, Eosinophils % ( Manual) 1, Basophils % (Manual) 0, Band Neutrophils 0, Platelet Estimate Adequate, Platelet Morphology Normal, Hypochromasia 3+, Anisocytosis 2+, Sodium Level 128L, Potassium Level 4.0, Chloride Level 89L, Carbon Dioxide Level 23, Anion Gap 16H, Blood Urea Nitrogen 56H, Creatinine 7.6H, Estimat Glomerular Filtration Rate 7.2, Glucose Level 232H, Uric Acid 3.9, Calcium Level 7.6L, Phosphorus Level 6.0H, Magnesium Level 2.1, Total Bilirubin 0.4, Aspartate Amino Transf (AST/SGOT) 19, Alanine Aminotransferase (ALT/SGPT) 10L, Alkaline Phosphatase 77, C-Reactive Protein, Quantitative 29.9H, Total Protein 7.5, Albumin 1.7L, Globulin 5.8, Albumin/Globulin Ratio 0.3L Height (Feet): 6 Height (Inches): 1.00 Weight (Pounds): 244 Karishma Mulligan MD June 21, 2019 21:41
--- NOTE | 2019-06-21 23:26 | Pulmonolgy Critical Care Note ---
Critical Care - Asmt/Plan Assessment/Plan: Pulmonary CCM Progress Note HPI: Patient is a 68 year old man, [facility] resident, admitted c/o shortness of breath, cough, noted to have Covid 19 Pneumonia, Respiratory Failure S/p intubation, remains on pressors, CXR improving Septic Shock Preserved EF FIO2 40%, adequate O2 sats, remains on ACVC HD tolerated Hyponatremia stable Anemia persists Seen earlier ID following On HD per Renal Past Medical History: COPD, CKD, Hypertension, Anemia Hypotension requiring pressors, in ICU Persistently elevated WCC Allergies: No Known Allergies Improving Pulmonary Status on HD Physical Exam Vital Signs Noted Sedated on ventilator WDWN, no distress HEENT: NCAT,moist mm Chest: Occasional rhonchi Heart: HS1, HS2, RRR Abdomen: SNTND, no masses Extremities: Well perfused, no edema [employer]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 [employer]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[employer]OR: No focal signs, no seizures, sedated Impression: COVID-19 virus infection Pneumonia Respiratory failure on ventilator Volume overload improving - on HD Hypotension on pressors Cardiomegaly Lymphopenia Elevated AST COPD Chronic Kidney Disease - HD H/o Hypertension Worsening anemia Plan: Antibiotics per ID HD Pressors PRN ACVC - wean as tolerated once pressors reduced/off ABG PRN BLOCK FEEDER Medications 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 Monitor cultures/viral studies PPX Hemodialysis per Renal Psychiatry following [facility] - [facility] requested for when available, [facility] - not available as yet Laboratory Tests Noted: CXR: Hypoventilatory exam, interstitial changes, cardiomegaly, improving infiltrates Subjective ROS Limited/Unobtainable: No Constitutional: Denies: fever Respiratory: Reports: dry cough, shortness of breath Gastrointestinal/Abdominal: Reports: diarrhea, other - colace was stopped Psychiatric: Reports: other - refuses labs Allergies: Coded Allergies: No Known Allergies (Unverified , 05/28/19) All Systems: reviewed and negative except above Labs noted Critical Care - Objective Last 24 Hour Vital Signs Date Time Temp Pulse Resp B/P (MAP) Pulse Ox O2 Delivery O2 Flow Rate FiO2 06/21/19 21:30 98.6 68 25 100/49 (66) 100 06/21/19 21:00 27 Mechanical Ventilator 40 06/21/19 21:00 100/49 06/21/19 21:00 69 25 100/51 (67) 100 06/21/19 20:30 67 25 123/64 (83) 100 06/21/19 20:01 69 28 100 Mechanical Ventilator 40 65 27 40 06/21/19 20:00 Mechanical Ventilator 06/21/19 20:00 99.1 68 26 124/59 (80) 100 06/21/19 20:00 26 Mechanical Ventilator 40 06/21/19 20:00 124/59 06/21/19 20:00 76 06/21/19 20:00 40 06/21/19 19:30 73 26 97/52 (67) 100 06/21/19 19:00 83 25 83/50 (61) 100 06/21/19 19:00 25 Endotracheal Tube 40 06/21/19 19:00 83/50 06/21/19 18:45 86 26 87/43 (58) 100 06/21/19 18:30 87 25 85/44 (58) 100 06/21/19 18:18 27 Endotracheal Tube 70.0 40 06/21/19 18:15 87 26 93/48 (63) 100 06/21/19 18:00 98.5 84 26 91/49 (63) 100 06/21/19 18:00 26 Endotracheal Tube 40 06/21/19 18:00 93/48 06/21/19 17:30 83 25 127/53 (77) 100 06/21/19 17:00 70 27 102/50 (67) 100 06/21/19 17:00 27 Bi-pap 40 06/21/19 17:00 99/50 06/21/19 16:45 71 26 104/51 (68) 100 06/21/19 16:30 95.6 73 26 89/50 (63) 100 06/21/19 16:30 89/50 06/21/19 16:15 78 26 82/46 (58) 100 06/21/19 16:00 84 26 97/55 (69) 100 06/21/19 16:00 26 Endotracheal Tube 40 06/21/19 16:00 97/55 06/21/19 16:00 Mechanical Ventilator 06/21/19 16:00 61 06/21/19 16:00 40 06/21/19 15:30 65 26 111/59 (76) 100 06/21/19 15:29 61 06/21/19 15:25 60 26 100 Mechanical Ventilator 40 60 26 40 06/21/19 15:00 26 Endotracheal Tube 40 06/21/19 15:00 112/54 06/21/19 15:00 63 26 112/54 (73) 100 06/21/19 14:30 65 27 103/53 (70) 100 06/21/19 14:00 24 Endotracheal Tube 40 06/21/19 14:00 90/44 06/21/19 14:00 74 24 90/44 (59) 100 06/21/19 13:30 74 25 92/50 (64) 99 06/21/19 13:00 73 26 104/55 (71) 100 06/21/19 13:00 26 Endotracheal Tube 40 06/21/19 13:00 93/52 06/21/19 12:30 71 26 105/58 (74) 100 06/21/19 12:00 Mechanical Ventilator 06/21/19 12:00 Mechanical Ventilator 06/21/19 12:00 97.9 75 27 112/59 (76) 100 06/21/19 12:00 27 Endotracheal Tube 40 06/21/19 12:00 127/62 06/21/19 12:00 40 06/21/19 11:35 74 06/21/19 11:30 82 24 130/67 (88) 100 06/21/19 11:00 81 25 132/63 (86) 100 06/21/19 11:00 25 Endotracheal Tube 40 06/21/19 11:00 132/63 06/21/19 10:59 83 28 100 Mechanical Ventilator 40 79 26 40 06/21/19 10:30 70 26 117/64 (81) 100 06/21/19 10:00 75 26 100/50 (67) 100 06/21/19 10:00 26 Endotracheal Tube 40 06/21/19 10:00 111/56 06/21/19 09:51 72 28 40 06/21/19 09:36 23 Endotracheal Tube 70.0 40 06/21/19 09:30 74 27 94/56 (69) 100 06/21/19 09:00 26 Endotracheal Tube 40 06/21/19 09:00 96/54 06/21/19 09:00 75 26 94/55 (68) 100 06/21/19 08:45 77 26 101/52 (68) 100 06/21/19 08:30 85 25 109/64 (79) 100 06/21/19 08:15 102 23 155/98 (117) 99 06/21/19 08:00 40 06/21/19 08:00 19 Endotracheal Tube 40 06/21/19 08:00 135/70 06/21/19 08:00 Mechanical Ventilator 06/21/19 08:00 97.9 86 19 135/70 (91) 100 06/21/19 07:34 68 30 100 Mechanical Ventilator 40 88 28 40 06/21/19 07:30 72 26 120/66 (84) 100 06/21/19 07:13 75 06/21/19 07:00 24 Mechanical Ventilator 40 06/21/19 07:00 124/71 06/21/19 07:00 74 28 124/71 (88) 99 06/21/19 06:30 79 26 136/80 (98) 100 06/21/19 06:00 26 Mechanical Ventilator 40 06/21/19 06:00 110/62 06/21/19 06:00 74 27 110/62 (78) 100 06/21/19 05:30 82 28 104/57 (73) 100 06/21/19 05:00 98.5 90 26 102/54 (70) 98 06/21/19 05:00 27 Mechanical Ventilator 40 06/21/19 05:00 102/54 06/21/19 04:30 73 26 113/61 (78) 100 06/21/19 04:00 40 06/21/19 04:00 66 22 126/55 (78) 100 06/21/19 04:00 26 Mechanical Ventilator 40 06/21/19 04:00 126/55 06/21/19 04:00 70 06/21/19 04:00 Mechanical Ventilator 06/21/19 03:30 66 0 123/60 (81) 100 06/21/19 03:21 98.3 06/21/19 03:10 86 28 98 Mechanical Ventilator 40 87 29 40 06/21/19 03:00 27 Mechanical Ventilator 40 06/21/19 03:00 119/61 06/21/19 03:00 66 11 130/63 (85) 100 06/21/19 02:30 119/59 06/21/19 02:30 69 27 119/59 (79) 100 06/21/19 02:15 105/57 06/21/19 02:00 24 Mechanical Ventilator 40 06/21/19 02:00 94/54 06/21/19 02:00 98.3 72 26 94/54 (67) 100 06/21/19 01:45 88/51 06/21/19 01:30 95/55 06/21/19 01:30 75 25 95/55 (68) 100 06/21/19 01:15 95/54 06/21/19 01:07 99/56 06/21/19 01:06 20 Mechanical Ventilator 40 06/21/19 01:00 76 25 99/56 (70) 100 06/21/19 01:00 99/56 06/21/19 00:45 120/53 06/21/19 00:30 103/55 06/21/19 00:30 77 18 103/55 (71) 100 06/21/19 00:15 82/49 06/21/19 00:00 111/60 06/21/19 00:00 Mechanical Ventilator 06/21/19 00:00 77 26 111/60 (77) 100 06/20/19 23:45 111/60 06/20/19 23:30 122/64 06/20/19 23:30 89 27 98 Mechanical Ventilator 40 90 26 40 06/20/19 23:30 97.6 85 25 122/64 (83) 100 Accucheck: 237 Critical Care - Subjective ROS Limited/Unobtainable: No Condition: critical FI02: 40 Vent Support Breath Rate: 26 Vent Support Mode: AC Vent Tidal Volume: 500 Sputum Amount: Small PEEP: 8.0 PIP: 26 Tube Feeding Amount: 30 I&O: Intake and Output 06/20/19 06/21/19 19:00 07:00 Intake Total 786.96 ml 1313.94 ml Output Total 0 ml 0 ml Balance 786.96 ml 1313.94 ml Free Water 120 ml IV Total 496.96 ml 863.94 ml Tube Feeding 290 ml 330 ml Output Urine Total 0 ml 0 ml # Bowel Movements 1 1 ET-Tube: 7.5 ET Position: 24 Arturo Mckeon MD June 21, 2019 23:26
[2019-06-22] VITALS (48 sets, daily range): BP systolic 82–173; BP diastolic 49–92
[2019-06-22] MEDS: Albuterol 90mcg Inhaler 8gm INH SCH ×6 (03:25→22:37)
[2019-06-22] MEDS: fentaNYL Citrate 2,500 MCG in NS 200 ML IV SCH ×3 (04:12→22:27)
[2019-06-22] MEDS: Renvela 800mg Pkt NG SCH ×4 (05:27→23:56)
[2019-06-22] MEDS: Piperacillin/Tazobactam 2.25 GM in D5W 55 ML IVPB SCH ×3 (05:28→22:24)
[2019-06-22] MEDS: NovoLOG Insulin Flexpen SUBQ SCH ×4 (06:15→23:55)
[2019-06-22 07:05] LABS: ALANINE AMINOTRANSFERASE 12 U/L (12-78); ALBUMIN 1.6 G/DL (3.4-5.0); ALBUMIN/GLOBULIN RATIO 0.3 (1.0-2.7); ALKALINE PHOSPHATASE 71 U/L (46-116); ASPARTATE AMINO TRANSFERASE 17 U/L (15-37); BILIRUBIN,TOTAL 0.4 MG/DL (0.2-1.0); BLOOD UREA NITROGEN 64 mg/dL (7-18); CALCIUM 8.4 MG/DL (8.5-10.1); CHLORIDE 88 MMOL/L (98-107); CREATININE 8.2 MG/DL (0.55-1.30); POTASSIUM 3.7 MMOL/L (3.5-5.1); SODIUM 127 MMOL/L (136-145)
[2019-06-22 07:11] LABS: CARBON DIOXIDE 24 MMOL/L (21-32)
[2019-06-22 07:21] LABS: HEMATOCRIT 25.5 % (42.0-52.0); HEMOGLOBIN 8.2 G/DL (14.2-18.0); MEAN CORPUSCULAR VOLUME 94 FL (80-99); PLATELET COUNT 264 K/UL (150-450); RED BLOOD COUNT 2.73 M/UL (4.70-6.10); RED CELL DISTRIBUTION WIDTH 18.7 % (11.6-14.8)
--- NOTE | 2019-06-22 07:33 | General Progress Note ---
Assessment/Plan Status: unchanged Assessment/Plan: 1. Diabetes. 2. Hypertension. 3. Coronary artery disease. 4. COPD. 5. Psychiatric disorder with schizophrenia. 6. History of hepatitis C. 7. HLP. 8. Chronic kidney disease, now with acute renal failure. 9. Anemia. 10. Hypothyroidism. 11. Spinal stenosis. 12. Constipation. 13. GERD. on HD tolerating TF recent labs and notes reviewed TF nephro at 35 cc and tolerated will fu Subjective ROS Limited/Unobtainable: No Allergies: Coded Allergies: No Known Allergies (Unverified , 05/28/19) Objective Last 24 Hour Vital Signs Date Time Temp Pulse Resp B/P (MAP) Pulse Ox O2 Delivery O2 Flow Rate FiO2 06/22/19 07:13 77 28 100 Mechanical Ventilator 40 74 28 40 06/22/19 07:00 28 Mechanical Ventilator 40 06/22/19 07:00 90/49 06/22/19 07:00 78 12 90/49 (63) 99 06/22/19 06:15 104/54 06/22/19 06:00 75 13 99/50 (66) 100 06/22/19 06:00 27 Mechanical Ventilator 40 06/22/19 06:00 99/50 06/22/19 05:30 81 23 111/68 (82) 100 06/22/19 05:27 98.4 06/22/19 05:00 91 26 119/67 (84) 100 06/22/19 05:00 28 Mechanical Ventilator 40 06/22/19 05:00 119/67 06/22/19 04:30 91 25 127/55 (79) 99 06/22/19 04:12 28 Mechanical Ventilator 40 06/22/19 04:00 98.6 76 24 114/57 (76) 100 06/22/19 04:00 40 06/22/19 04:00 72 06/22/19 04:00 114/57 06/22/19 04:00 Mechanical Ventilator 06/22/19 03:30 71 26 124/55 (78) 100 06/22/19 03:25 72 26 100 Mechanical Ventilator 40 71 26 40 06/22/19 03:00 22 Mechanical Ventilator 40 06/22/19 03:00 129/68 06/22/19 03:00 68 25 129/64 (85) 100 06/22/19 02:30 69 26 127/57 (80) 100 06/22/19 02:00 76 19 124/60 (81) 100 06/22/19 02:00 20 Mechanical Ventilator 40 06/22/19 02:00 120/54 06/22/19 01:30 75 26 109/51 (70) 100 06/22/19 01:00 74 21 113/53 (73) 100 06/22/19 01:00 21 Mechanical Ventilator 40 06/22/19 01:00 113/53 06/22/19 00:30 70 26 97/51 (66) 100 06/22/19 00:00 98.4 79 23 124/66 (85) 100 06/22/19 00:00 71 06/22/19 00:00 26 Mechanical Ventilator 40 06/22/19 00:00 124/66 06/22/19 00:00 Mechanical Ventilator 06/22/19 00:00 40 06/21/19 23:59 68 27 100 Mechanical Ventilator 40 74 27 40 06/21/19 23:30 75 26 109/51 (70) 100 06/21/19 23:00 74 26 112/51 (71) 100 06/21/19 23:00 26 Mechanical Ventilator 40 06/21/19 23:00 112/51 06/21/19 22:30 71 26 101/50 (67) 100 06/21/19 22:00 74 25 98/47 (64) 100 06/21/19 22:00 27 Mechanical Ventilator 40 06/21/19 22:00 98/47 06/21/19 21:30 98.6 68 25 100/49 (66) 100 06/21/19 21:00 27 Mechanical Ventilator 40 06/21/19 21:00 100/49 06/21/19 21:00 69 25 100/51 (67) 100 06/21/19 20:30 67 25 123/64 (83) 100 06/21/19 20:01 69 28 100 Mechanical Ventilator 40 65 27 40 06/21/19 20:00 Mechanical Ventilator 06/21/19 20:00 99.1 68 26 124/59 (80) 100 06/21/19 20:00 26 Mechanical Ventilator 40 06/21/19 20:00 124/59 06/21/19 20:00 76 06/21/19 20:00 40 06/21/19 19:30 73 26 97/52 (67) 100 06/21/19 19:00 83 25 83/50 (61) 100 06/21/19 19:00 25 Endotracheal Tube 40 06/21/19 19:00 83/50 06/21/19 18:45 86 26 87/43 (58) 100 06/21/19 18:30 87 25 85/44 (58) 100 06/21/19 18:18 27 Endotracheal Tube 70.0 40 06/21/19 18:15 87 26 93/48 (63) 100 06/21/19 18:00 98.5 84 26 91/49 (63) 100 06/21/19 18:00 26 Endotracheal Tube 40 06/21/19 18:00 93/48 06/21/19 17:30 83 25 127/53 (77) 100 06/21/19 17:00 70 27 102/50 (67) 100 06/21/19 17:00 27 Bi-pap 40 06/21/19 17:00 99/50 06/21/19 16:45 71 26 104/51 (68) 100 06/21/19 16:30 95.6 73 26 89/50 (63) 100 06/21/19 16:30 89/50 06/21/19 16:15 78 26 82/46 (58) 100 06/21/19 16:00 84 26 97/55 (69) 100 06/21/19 16:00 26 Endotracheal Tube 40 06/21/19 16:00 97/55 06/21/19 16:00 Mechanical Ventilator 06/21/19 16:00 61 06/21/19 16:00 40 06/21/19 15:30 65 26 111/59 (76) 100 06/21/19 15:29 61 06/21/19 15:25 60 26 100 Mechanical Ventilator 40 60 26 40 06/21/19 15:00 26 Endotracheal Tube 40 06/21/19 15:00 112/54 06/21/19 15:00 63 26 112/54 (73) 100 06/21/19 14:30 65 27 103/53 (70) 100 06/21/19 14:00 24 Endotracheal Tube 40 06/21/19 14:00 90/44 06/21/19 14:00 74 24 90/44 (59) 100 06/21/19 13:30 74 25 92/50 (64) 99 06/21/19 13:00 73 26 104/55 (71) 100 06/21/19 13:00 26 Endotracheal Tube 40 06/21/19 13:00 93/52 06/21/19 12:30 71 26 105/58 (74) 100 06/21/19 12:00 Mechanical Ventilator 06/21/19 12:00 Mechanical Ventilator 06/21/19 12:00 97.9 75 27 112/59 (76) 100 06/21/19 12:00 27 Endotracheal Tube 40 06/21/19 12:00 127/62 06/21/19 12:00 40 06/21/19 11:35 74 06/21/19 11:30 82 24 130/67 (88) 100 06/21/19 11:00 81 25 132/63 (86) 100 06/21/19 11:00 25 Endotracheal Tube 40 06/21/19 11:00 132/63 06/21/19 10:59 83 28 100 Mechanical Ventilator 40 79 26 40 06/21/19 10:30 70 26 117/64 (81) 100 06/21/19 10:00 75 26 100/50 (67) 100 06/21/19 10:00 26 Endotracheal Tube 40 06/21/19 10:00 111/56 06/21/19 09:51 72 28 40 06/21/19 09:36 23 Endotracheal Tube 70.0 40 06/21/19 09:30 74 27 94/56 (69) 100 06/21/19 09:00 26 Endotracheal Tube 40 06/21/19 09:00 96/54 06/21/19 09:00 75 26 94/55 (68) 100 06/21/19 08:45 77 26 101/52 (68) 100 06/21/19 08:30 85 25 109/64 (79) 100 06/21/19 08:15 102 23 155/98 (117) 99 06/21/19 08:00 40 06/21/19 08:00 19 Endotracheal Tube 40 06/21/19 08:00 135/70 06/21/19 08:00 Mechanical Ventilator 06/21/19 08:00 97.9 86 19 135/70 (91) 100 06/21/19 07:34 68 30 100 Mechanical Ventilator 40 88 28 40 Intake and Output 06/21/19 06/22/19 19:00 07:00 Intake Total 1762.07 ml 1202.84 ml Output Total 50 ml 10 ml Balance 1712.07 ml 1192.84 ml Free Water 600 ml 240 ml IV Total 802.07 ml 587.84 ml Tube Feeding 360 ml 375 ml Output Urine Total 50 ml 10 ml Laboratory Tests 06/22/19 06:13: White Blood Count 13.0H, Red Blood Count 2.73L, Hemoglobin 8.2L, Hematocrit 25.5L, Mean Corpuscular Volume 94, Mean Corpuscular Hemoglobin 30.0, Mean Corpuscular Hemoglobin Concent 32.1, Red Cell Distribution Width 18.7H, Platelet Count 264, Mean Platelet Volume 7.4, Neutrophils (%) (Auto) , Lymphocytes (%) (Auto) , Monocytes (%) (Auto) , Eosinophils (%) (Auto) , Basophils (%) (Auto) , Neutrophils % (Manual) [Pending], Lymphocytes % (Manual) [Pending], Platelet Estimate [Pending], Platelet Morphology [Pending], Sodium Level 127L, Potassium Level 3.7, Chloride Level 88L, Carbon Dioxide Level [ Pending], Blood Urea Nitrogen 64H, Creatinine 8.2H, Estimat Glomerular Filtration Rate 6.6, Glucose Level 212H, Calcium Level 8.4L, Iron Level [Pending ], Unsaturated Iron Binding [Pending], Ferritin [Pending], Total Bilirubin 0.4, Aspartate Amino Transf (AST/SGOT) 17, Alanine Aminotransferase (ALT/SGPT) 12, Alkaline Phosphatase 71, Total Protein 7.6, Albumin 1.6L, Globulin 6.0, Albumin/ Globulin Ratio 0.3L Height (Feet): 6 Height (Inches): 1.00 Weight (Pounds): 245 General Appearance: no apparent distress EENT: PERRL/EOMI Neck: normal alignment Cardiovascular: normal rate Respiratory/Chest: decreased breath sounds Abdomen: soft, hypoactive bowel sounds Extremities: non-tender Marito Ramires MD June 22, 2019 07:33
[2019-06-22 08:05] LABS: % IRON SATURATION 21 % (15-50); IRON 21 ug/dL (50-175); TOTAL IRON BINDING CAPACITY 101 ug/dL (250-450)
[2019-06-22 08:15] LABS: FERRITIN 414 NG/ML (8-388)
[2019-06-22] MEDS: Docusate 100mg/10ml Liq NG SCH ×3 (09:37→17:48)
[2019-06-22] MEDS: Midodrine 10mg tab NG SCH ×3 (09:37→17:47)
[2019-06-22] MEDS: Pantoprazole Inj IVP SCH (09:37)
[2019-06-22] MEDS: Norepinephrine Bitartrate 16 MG in D5W 500ml 550 ML IV SCH (09:38)
[2019-06-22] MEDS: Enoxaparin 30mg Inj SUBQ SCH (10:12)
--- NOTE | 2019-06-22 11:12 | Hematology/Onc Progress Note ---
Assessment/Plan Assessment/Plan Assessment and Recs: # Anemia of chronic disease, likely related ot underlying kidney disease has COIVD19++ --> hgb trend 9-->8-->7.3-->7.9-->6.8->9.5-->10->8.3-->7.7-->7.1-->8.9->8.8->7.7 --> transfuse as needed, hgb goal >7 --> no evidence of hemolysis --> peripheral smear has been reviewed --> epogen started three x a week ==>> transfuse w 2 units 06/08, 06/15, # Leukocytosis likely related to suspected COVID-19 virus infection --> completed plaquenil --> trend smear as needed --> initially 4-->11-->14.5-->21-->26-->21->24--.28-->23-->19-->16.2-->21 --> pulm is aware --> on abx cefepime/vanc->zosyn/vanc --> pressors as needed # Thrombocytopenia/Lymphopenia --> likely related to covid19 --> plt 129k-->186k # Respiratory failure with covid19+ --> s/p vent # Possible Pneumonia --> abx given --> on zosyn and vanc # Cardiomegaly # Transaminitis with Elevated AST # COPD # Chronic Kidney Disease --> per renal hd # Hypertension # Dvt ppx lovenox Appreciate consultation and ernesto Rn Subjective Allergies: Coded Allergies: No Known Allergies (Unverified , 05/28/19) All Systems: reviewed and negative except above Subjective 06/01 nv, extremely agitated, not allowing labs draws, no night sweats, cbc ordered 06/02 confused, restraints, on abx and plaquenil, hgb 7.9, nrb 15 L 06/03 is with nonrebreather, but not compliant, remains confused 06/05 no bleeding, labs noted, no major bleeding, otherwise comfortable 06/06 labs reviewed, no bleeding, meds noted, no night sweats, on levo and nonrebreather 06/07 labs noted, no bleeding, meds reviewed, no bleeding, wbc higher 06/08 to get 2 units prbc, no night sweats, meds reviewed 06/09 is on cefepime and vanc, labs noted, ernesto Rn, no bleeding 06/10 no major changes, labs reviewed, wbc 28k, on abx, cefepime 06/12 remains in icu, labs noted, no night sweats or bleeding 06/13 sluggish pupils, remains agitated, per psych, no bleding, on vent, wbc sitll high 06/14 still confused, remains on vent, with ng, running nepro, on pressors 06/15 icu, febrile, non verbal, hgb 7.1, blood pending, completed plaq 06/16 remains in the icu, nonverbal, plan for hd tomorrow, ernesto rn 06/17 in icu, on pressor, nonverbal, on abx, no bleeding 06/19 no bleeding, nonverbal in icu, hgb is 7.7 06/20 on zosyn, tube feeds, vent, labs noted, in icu, nv 06/21 gettng hd as per renal, in icu, nv, no bleeding, tfs Objective Objective Current Medications Medications (Trade) Dose Ordered Sig/Anthony Route PRN Reason Start Time Stop Time Status Last Admin Dose Admin Acetaminophen (Tylenol) 650 mg Q4H PRN NG Temp >100.5 06/13/19 11:00 07/13/19 10:59 06/20/19 17:38 Albuterol Sulfate (Proventil MDI) 2 puff Q4HRT INH 06/06/19 23:00 08/30/19 18:59 06/22/19 10:53 Chlorhexidine Gluconate (Michelle-Hex 2%) 1 applic DAILY@1999 TOPIC 06/07/19 20:00 09/05/19 19:59 06/21/19 20:13 Dextrose (Dextrose 50%) 25 ml Q30M PRN IV Hypoglycemia 06/20/19 19:30 09/18/19 19:29 Dextrose (Dextrose 50%) 50 ml Q30M PRN IV Hypoglycemia 06/20/19 19:30 09/18/19 19:29 Docusate Sodium (Colace) 100 mg THREE TIMES A DAY NG 06/07/19 13:00 07/07/19 12:59 06/22/19 09:37 Dopamine HCl/ Dextrose 250 ml @ 0 mls/hr Q24H PRN IV For hypotension 06/13/19 08:15 09/11/19 08:14 Enoxaparin Sodium (Lovenox) 30 mg DAILY SUBQ 06/07/19 09:00 08/27/19 08:59 06/22/19 10:12 Epoetin Aftab (Epoetin Aftab(ESRD on dialysis)) 10,000 unit SUBQ 06/07/19 21:00 08/31/19 20:59 06/21/19 20:48 Fentanyl Citrate 2500 mcg/Sodium Chloride 250 ml @ 0 mls/hr Q24H IV 06/20/19 07:45 06/27/19 07:44 06/22/19 04:12 Hydralazine HCl (Apresoline) 10 mg Q4H PRN IV Blood pressure over 160 systol 06/07/19 10:15 09/05/19 10:14 Insulin Aspart (NovoLOG) EVERY 6 HOURS SUBQ 06/21/19 00:00 09/19/19 00:00 06/22/19 06:15 Metoclopramide HCl (Reglan) 5 mg Q8H PRN IVP Nausea & Vomiting 06/18/19 12:00 07/18/19 11:59 06/19/19 00:50 Midodrine (Pro-Amatine) 10 mg THREE TIMES A DAY NG 06/09/19 13:00 09/07/19 12:59 06/22/19 09:37 Norepinephrine Bitartrate 16 mg/ Dextrose 566 ml @ 0 mls/hr Q24H IV 06/13/19 09:45 07/13/19 09:44 06/22/19 09:38 Pantoprazole (Protonix) 40 mg DAILY IVP 06/19/19 09:00 07/19/19 08:59 06/22/19 09:37 Piperacillin Sod/ Tazobactam Sod 2.25 gm/Dextrose 55 ml @ 110 mls/hr Q8HR IVPB 06/13/19 14:00 06/23/19 13:59 06/22/19 05:28 Sevelamer Carbonate (Renvela) 1,600 mg Q6HR NG 06/14/19 12:00 09/05/19 12:59 06/22/19 05:27 Vancomycin HCl (Vanco rx to dose) 1 ea DAILY PRN MISC Per rx protocol 06/13/19 11:45 07/13/19 11:44 Last 24 Hour Vital Signs Date Time Temp Pulse Resp B/P (MAP) Pulse Ox O2 Delivery O2 Flow Rate FiO2 06/22/19 10:53 78 26 100 Mechanical Ventilator 40 77 26 40 06/22/19 09:38 112/58 06/22/19 08:00 74 06/22/19 07:13 77 28 100 Mechanical Ventilator 40 74 28 40 06/22/19 07:00 28 Mechanical Ventilator 40 06/22/19 07:00 90/49 06/22/19 07:00 78 12 90/49 (63) 99 06/22/19 06:15 104/54 06/22/19 06:00 75 13 99/50 (66) 100 06/22/19 06:00 27 Mechanical Ventilator 40 06/22/19 06:00 99/50 06/22/19 05:30 81 23 111/68 (82) 100 06/22/19 05:27 98.4 06/22/19 05:00 91 26 119/67 (84) 100 06/22/19 05:00 28 Mechanical Ventilator 40 06/22/19 05:00 119/67 06/22/19 04:30 91 25 127/55 (79) 99 06/22/19 04:12 28 Mechanical Ventilator 40 06/22/19 04:00 98.6 76 24 114/57 (76) 100 06/22/19 04:00 40 06/22/19 04:00 72 06/22/19 04:00 114/57 06/22/19 04:00 Mechanical Ventilator 06/22/19 03:30 71 26 124/55 (78) 100 06/22/19 03:25 72 26 100 Mechanical Ventilator 40 71 26 40 06/22/19 03:00 22 Mechanical Ventilator 40 06/22/19 03:00 129/68 06/22/19 03:00 68 25 129/64 (85) 100 06/22/19 02:30 69 26 127/57 (80) 100 06/22/19 02:00 76 19 124/60 (81) 100 06/22/19 02:00 20 Mechanical Ventilator 40 06/22/19 02:00 120/54 06/22/19 01:30 75 26 109/51 (70) 100 06/22/19 01:00 74 21 113/53 (73) 100 06/22/19 01:00 21 Mechanical Ventilator 40 06/22/19 01:00 113/53 06/22/19 00:30 70 26 97/51 (66) 100 06/22/19 00:00 98.4 79 23 124/66 (85) 100 06/22/19 00:00 71 06/22/19 00:00 26 Mechanical Ventilator 40 06/22/19 00:00 124/66 06/22/19 00:00 Mechanical Ventilator 06/22/19 00:00 40 06/21/19 23:59 68 27 100 Mechanical Ventilator 40 74 27 40 06/21/19 23:30 75 26 109/51 (70) 100 06/21/19 23:00 74 26 112/51 (71) 100 06/21/19 23:00 26 Mechanical Ventilator 40 06/21/19 23:00 112/51 06/21/19 22:30 71 26 101/50 (67) 100 06/21/19 22:00 74 25 98/47 (64) 100 06/21/19 22:00 27 Mechanical Ventilator 40 06/21/19 22:00 98/47 06/21/19 21:30 98.6 68 25 100/49 (66) 100 06/21/19 21:00 27 Mechanical Ventilator 40 06/21/19 21:00 100/49 06/21/19 21:00 69 25 100/51 (67) 100 06/21/19 20:30 67 25 123/64 (83) 100 06/21/19 20:01 69 28 100 Mechanical Ventilator 40 65 27 40 06/21/19 20:00 Mechanical Ventilator 06/21/19 20:00 99.1 68 26 124/59 (80) 100 06/21/19 20:00 26 Mechanical Ventilator 40 06/21/19 20:00 124/59 06/21/19 20:00 76 06/21/19 20:00 40 06/21/19 19:30 73 26 97/52 (67) 100 06/21/19 19:00 83 25 83/50 (61) 100 06/21/19 19:00 25 Endotracheal Tube 40 06/21/19 19:00 83/50 5/11/20 18:45 86 26 87/43 (58) 100 06/21/19 18:30 87 25 85/44 (58) 100 06/21/19 18:18 27 Endotracheal Tube 70.0 40 06/21/19 18:15 87 26 93/48 (63) 100 06/21/19 18:00 98.5 84 26 91/49 (63) 100 06/21/19 18:00 26 Endotracheal Tube 40 06/21/19 18:00 93/48 06/21/19 17:30 83 25 127/53 (77) 100 06/21/19 17:00 70 27 102/50 (67) 100 06/21/19 17:00 27 Bi-pap 40 06/21/19 17:00 99/50 06/21/19 16:45 71 26 104/51 (68) 100 06/21/19 16:30 95.6 73 26 89/50 (63) 100 06/21/19 16:30 89/50 06/21/19 16:15 78 26 82/46 (58) 100 06/21/19 16:00 84 26 97/55 (69) 100 06/21/19 16:00 26 Endotracheal Tube 40 06/21/19 16:00 97/55 06/21/19 16:00 Mechanical Ventilator 06/21/19 16:00 61 06/21/19 16:00 40 06/21/19 15:30 65 26 111/59 (76) 100 06/21/19 15:29 61 06/21/19 15:25 60 26 100 Mechanical Ventilator 40 60 26 40 06/21/19 15:00 26 Endotracheal Tube 40 06/21/19 15:00 112/54 06/21/19 15:00 63 26 112/54 (73) 100 06/21/19 14:30 65 27 103/53 (70) 100 06/21/19 14:00 24 Endotracheal Tube 40 06/21/19 14:00 90/44 06/21/19 14:00 74 24 90/44 (59) 100 06/21/19 13:30 74 25 92/50 (64) 99 06/21/19 13:00 73 26 104/55 (71) 100 06/21/19 13:00 26 Endotracheal Tube 40 06/21/19 13:00 93/52 06/21/19 12:30 71 26 105/58 (74) 100 06/21/19 12:00 Mechanical Ventilator 06/21/19 12:00 Mechanical Ventilator 06/21/19 12:00 97.9 75 27 112/59 (76) 100 06/21/19 12:00 27 Endotracheal Tube 40 06/21/19 12:00 127/62 06/21/19 12:00 40 06/21/19 11:35 74 06/21/19 11:30 82 24 130/67 (88) 100 06/21/19 11:00 81 25 132/63 (86) 100 06/21/19 11:00 25 Endotracheal Tube 40 06/21/19 11:00 132/63 06/21/19 10:59 83 28 100 Mechanical Ventilator 40 79 26 40 06/21/19 10:30 70 26 117/64 (81) 100 06/21/19 10:00 75 26 100/50 (67) 100 06/21/19 10:00 26 Endotracheal Tube 40 06/21/19 10:00 111/56 06/21/19 09:51 72 28 40 06/21/19 09:36 23 Endotracheal Tube 70.0 40 06/21/19 09:30 74 27 94/56 (69) 100 06/21/19 09:00 26 Endotracheal Tube 40 06/21/19 09:00 96/54 06/21/19 09:00 75 26 94/55 (68) 100 06/21/19 08:45 77 26 101/52 (68) 100 06/21/19 08:30 85 25 109/64 (79) 100 06/21/19 08:15 102 23 155/98 (117) 99 06/21/19 08:00 40 06/21/19 08:00 19 Endotracheal Tube 40 06/21/19 08:00 135/70 06/21/19 08:00 Mechanical Ventilator 06/21/19 08:00 97.9 86 19 135/70 (91) 100 06/21/19 07:34 68 30 100 Mechanical Ventilator 40 88 28 40 06/21/19 07:30 72 26 120/66 (84) 100 06/21/19 07:13 75 06/21/19 07:00 24 Mechanical Ventilator 40 06/21/19 07:00 124/71 06/21/19 07:00 74 28 124/71 (88) 99 06/21/19 06:30 79 26 136/80 (98) 100 06/21/19 06:00 26 Mechanical Ventilator 40 06/21/19 06:00 110/62 06/21/19 06:00 74 27 110/62 (78) 100 06/21/19 05:30 82 28 104/57 (73) 100 06/21/19 05:00 98.5 90 26 102/54 (70) 98 06/21/19 05:00 27 Mechanical Ventilator 40 06/21/19 05:00 102/54 06/21/19 04:30 73 26 113/61 (78) 100 06/21/19 04:00 40 06/21/19 04:00 66 22 126/55 (78) 100 06/21/19 04:00 26 Mechanical Ventilator 40 06/21/19 04:00 126/55 06/21/19 04:00 70 06/21/19 04:00 Mechanical Ventilator 06/21/19 03:30 66 0 123/60 (81) 100 06/21/19 03:10 86 28 98 Mechanical Ventilator 40 87 29 40 06/21/19 03:00 27 Mechanical Ventilator 40 06/21/19 03:00 119/61 06/21/19 03:00 66 11 130/63 (85) 100 06/21/19 02:30 119/59 06/21/19 02:30 69 27 119/59 (79) 100 06/21/19 02:15 105/57 06/21/19 02:00 24 Mechanical Ventilator 40 06/21/19 02:00 94/54 06/21/19 02:00 98.3 72 26 94/54 (67) 100 06/21/19 01:45 88/51 06/21/19 01:30 95/55 06/21/19 01:30 75 25 95/55 (68) 100 06/21/19 01:15 95/54 06/21/19 01:07 99/56 06/21/19 01:06 20 Mechanical Ventilator 40 06/21/19 01:00 76 25 99/56 (70) 100 06/21/19 01:00 99/56 06/21/19 00:45 120/53 06/21/19 00:30 103/55 06/21/19 00:30 77 18 103/55 (71) 100 06/21/19 00:15 82/49 06/21/19 00:00 111/60 06/21/19 00:00 Mechanical Ventilator 06/21/19 00:00 77 26 111/60 (77) 100 06/20/19 23:45 111/60 06/20/19 23:30 122/64 06/20/19 23:30 89 27 98 Mechanical Ventilator 40 90 26 40 06/20/19 23:30 97.6 85 25 122/64 (83) 100 06/20/19 23:15 127/76 06/20/19 23:00 92 25 134/64 (87) 99 06/20/19 23:00 134/64 06/20/19 22:45 122/62 06/20/19 22:30 142/63 06/20/19 22:30 90 25 142/63 (89) 100 06/20/19 22:15 135/61 06/20/19 22:15 93 25 135/61 (85) 100 06/20/19 22:00 117/56 06/20/19 22:00 93 26 117/56 (76) 100 06/20/19 21:45 144/60 06/20/19 21:45 94 26 144/60 (88) 100 06/20/19 21:30 138/61 06/20/19 21:30 95 26 138/61 (86) 100 06/20/19 21:15 96 26 135/62 (86) 100 06/20/19 21:15 135/62 06/20/19 21:00 96 26 138/64 (88) 100 06/20/19 21:00 138/64 06/20/19 20:45 105 25 94/54 (67) 99 06/20/19 20:45 94/54 06/20/19 20:30 88/52 06/20/19 20:30 95 25 88/52 (64) 99 06/20/19 20:15 112/58 06/20/19 20:15 86 26 112/58 (76) 100 06/20/19 20:08 78 26 136/62 (86) 100 06/20/19 20:00 99.4 89 26 74/46 (55) 98 06/20/19 20:00 75 06/20/19 20:00 Mechanical Ventilator 06/20/19 20:00 74/46 06/20/19 20:00 40 06/20/19 19:45 87 26 89/52 (64) 99 06/20/19 19:45 111/59 06/20/19 19:30 95 26 98 Mechanical Ventilator 40 94 26 40 06/20/19 19:30 141/46 06/20/19 19:30 81 26 111/59 (76) 99 06/20/19 19:15 77 26 141/61 (87) 99 06/20/19 19:15 76/46 06/20/19 19:00 90 26 76/46 (56) 98 06/20/19 19:00 26 Endotracheal Tube 40 06/20/19 19:00 141/61 06/20/19 18:45 87 22 123/55 (77) 100 06/20/19 18:30 85 26 113/57 (75) 100 06/20/19 18:16 99.8 06/20/19 18:15 86 26 113/54 (73) 100 06/20/19 18:00 86 26 110/55 (73) 99 06/20/19 18:00 26 Endotracheal Tube 40 06/20/19 18:00 110/55 06/20/19 17:36 27 Endotracheal Tube 70.0 40 06/20/19 17:35 87 27 103/50 (67) 99 06/20/19 17:30 86 27 103/50 (67) 99 06/20/19 17:05 89 26 82/47 (59) 98 06/20/19 17:00 100.5 89 27 82/47 (59) 98 06/20/19 17:00 27 Endotracheal Tube 40 06/20/19 17:00 82/47 06/20/19 16:30 90 26 91/43 (59) 97 06/20/19 16:00 40 06/20/19 16:00 80 29 105/53 (70) 98 06/20/19 16:00 92 06/20/19 16:00 Mechanical Ventilator 06/20/19 16:00 26 Endotracheal Tube 40 06/20/19 16:00 103/53 06/20/19 15:30 91 26 102/52 (69) 98 06/20/19 15:10 80 26 98 Mechanical Ventilator 40 80 26 40 06/20/19 15:00 20 Endotracheal Tube 40 5/10/20 15:00 103/52 5/10/20 15:00 83 24 103/52 (69) 97 06/20/19 14:30 82 24 108/63 (78) 95 06/20/19 14:00 80 24 98/52 (67) 95 06/20/19 14:00 24 Endotracheal Tube 40 06/20/19 14:00 98/52 06/20/19 13:30 79 24 108/53 (71) 98 06/20/19 13:00 99.5 81 27 96/52 (67) 93 06/20/19 13:00 27 Endotracheal Tube 40 06/20/19 13:00 96/52 06/20/19 12:30 74 26 104/51 (68) 98 06/20/19 12:00 40 06/20/19 12:00 73 17 92/53 (66) 98 06/20/19 12:00 Mechanical Ventilator 06/20/19 12:00 23 Endotracheal Tube 40 06/20/19 12:00 92/53 06/20/19 12:00 75 06/20/19 11:30 74 15 94/45 (61) 99 Intake and Output 06/21/19 06/22/19 19:00 07:00 Intake Total 1762.07 ml 1202.84 ml Output Total 50 ml 10 ml Balance 1712.07 ml 1192.84 ml Free Water 600 ml 240 ml IV Total 802.07 ml 587.84 ml Tube Feeding 360 ml 375 ml Output Urine Total 50 ml 10 ml Labs Test 06/20/19 06:00 06/21/19 05:30 06/22/19 06:13 White Blood Count 15.5 K/UL (4.8-10.8) 14.9 K/UL (4.8-10.8) 13.0 K/UL (4.8-10.8) Red Blood Count 2.50 M/UL (4.70-6.10) 2.58 M/UL (4.70-6.10) 2.73 M/UL (4.70-6.10) Hemoglobin 7.7 G/DL (14.2-18.0) 7.9 G/DL (14.2-18.0) 8.2 G/DL (14.2-18.0) Hematocrit 23.4 % (42.0-52.0) 24.2 % (42.0-52.0) 25.5 % (42.0-52.0) Mean Corpuscular Volume 94 FL (80-99) 94 FL (80-99) 94 FL (80-99) Mean Corpuscular Hemoglobin 30.6 PG (27.0-31.0) 30.6 PG (27.0-31.0) 30.0 PG (27.0-31.0) Mean Corpuscular Hemoglobin Concent 32.7 G/DL (32.0-36.0) 32.6 G/DL (32.0-36.0) 32.1 G/DL (32.0-36.0) Red Cell Distribution Width 18.9 % (11.6-14.8) 18.9 % (11.6-14.8) 18.7 % (11.6-14.8) Platelet Count 227 K/UL (150-450) 246 K/UL (150-450) 264 K/UL (150-450) Mean Platelet Volume 7.7 FL (6.5-10.1) 7.7 FL (6.5-10.1) 7.4 FL (6.5-10.1) Neutrophils (%) (Auto) % (45.0-75.0) % (45.0-75.0) % (45.0-75.0) Lymphocytes (%) (Auto) % (20.0-45.0) % (20.0-45.0) % (20.0-45.0) Monocytes (%) (Auto) % (1.0-10.0) % (1.0-10.0) % (1.0-10.0) Eosinophils (%) (Auto) % (0.0-3.0) % (0.0-3.0) % (0.0-3.0) Basophils (%) (Auto) % (0.0-2.0) % (0.0-2.0) % (0.0-2.0) Differential Total Cells Counted 100 100 100 Neutrophils % (Manual) 94 % (45-75) 87 % (45-75) 88 % (45-75) Lymphocytes % (Manual) 2 % (20-45) 10 % (20-45) 6 % (20-45) Monocytes % (Manual) 4 % (1-10) 2 % (1-10) 5 % (1-10) Eosinophils % (Manual) 0 % (0-3) 1 % (0-3) 0 % (0-3) Basophils % (Manual) 0 % (0-2) 0 % (0-2) 0 % (0-2) Band Neutrophils 0 % (0-8) 0 % (0-8) 1 % (0-8) Platelet Estimate Adequate Adequate Adequate Platelet Morphology Normal Normal Normal Polychromasia 1+ Anisocytosis 1+ 2+ 1+ Sodium Level 128 MMOL/L (136-145) 128 MMOL/L (136-145) 127 MMOL/L (136-145) Potassium Level 3.8 MMOL/L (3.5-5.1) 4.0 MMOL/L (3.5-5.1) 3.7 MMOL/L (3.5-5.1) Chloride Level 87 MMOL/L (98-107) 89 MMOL/L (98-107) 88 MMOL/L (98-107) Carbon Dioxide Level 23 MMOL/L (21-32) 23 MMOL/L (21-32) 24 MMOL/L (21-32) Anion Gap 18 mmol/L (5-15) 16 mmol/L (5-15) Blood Urea Nitrogen 64 mg/dL (7-18) 56 mg/dL (7-18) 64 mg/dL (7-18) Creatinine 8.5 MG/DL (0.55-1.30) 7.6 MG/DL (0.55-1.30) 8.2 MG/DL (0.55-1.30) Estimat Glomerular Filtration Rate 6.3 mL/min (>60) 7.2 mL/min (>60) 6.6 mL/min (>60) Glucose Level 325 MG/DL (74-106) 232 MG/DL (74-106) 212 MG/DL (74-106) Calcium Level 8.3 MG/DL (8.5-10.1) 7.6 MG/DL (8.5-10.1) 8.4 MG/DL (8.5-10.1) Phosphorus Level 7.0 MG/DL (2.5-4.9) 6.0 MG/DL (2.5-4.9) Magnesium Level 2.1 MG/DL (1.8-2.4) 2.1 MG/DL (1.8-2.4) Total Bilirubin 0.4 MG/DL (0.2-1.0) 0.4 MG/DL (0.2-1.0) 0.4 MG/DL (0.2-1.0) Aspartate Amino Transf (AST/SGOT) 18 U/L (15-37) 19 U/L (15-37) 17 U/L (15-37) Alanine Aminotransferase (ALT/SGPT) 7 U/L (12-78) 10 U/L (12-78) 12 U/L (12-78) Alkaline Phosphatase 79 U/L (46-116) 77 U/L (46-116) 71 U/L (46-116) Total Protein 7.3 G/DL (6.4-8.2) 7.5 G/DL (6.4-8.2) 7.6 G/DL (6.4-8.2) Albumin 1.7 G/DL (3.4-5.0) 1.7 G/DL (3.4-5.0) 1.6 G/DL (3.4-5.0) Globulin 5.6 g/dL 5.8 g/dL 6.0 g/dL Albumin/Globulin Ratio 0.3 (1.0-2.7) 0.3 (1.0-2.7) 0.3 (1.0-2.7) Hypochromasia 3+ Uric Acid 3.9 MG/DL (2.6-7.2) C-Reactive Protein, Quantitative 29.9 mg/dL (0.00-0.90) Iron Level 21 ug/dL (50-175) Total Iron Binding Capacity 101 ug/dL (250-450) Percent Iron Saturation 21 % (15-50) Unsaturated Iron Binding 80 ug/dL (112-346) Ferritin 414 NG/ML (8-388) Height (Feet): 6 Height (Inches): 1.00 Weight (Pounds): 245 Objective Sp02 EP Interpretation: reviewed General: nv, confused, sedated Heent: bilateral eye normal inspection, bilateral eye PERRL ++Ng Respiratory: normal breath sounds, no respiratory distress,intubated+++ Cardiovascular: regular rate, rhythm, no edema Gastrointestinal: normal inspection, soft, non-distended Rectal: deferred Musculoskeletal: normal range of motion, non-tender Neurologic: alert, motor strength/tone normal, sensory intact, responsive, speech normal Skin: Decubitus/Ulcer - See RN skin exam. : jamaal+ Greg Cabral MD June 22, 2019 11:12
--- NOTE | 2019-06-22 11:52 | Nephrology Progress Note ---
Assessment/Plan Problem List: (1) CASSADNRA (acute kidney injury) (2) Anemia in chronic kidney disease (CKD) (3) HTN (hypertension) (4) COVID-19 Assessment Acute renal failure most likely superimposed on chronic kidney disease Suspected COVID-19 virus infection Possible Pneumonia, lymphopenia, elevated AST Cardiomegaly, possible CHF COPD Hypertension Anemia, most likely related to chronic kidney disease Plan June 21 Remains intubated on ventilator Due dialysis today Emphasized high sodium bath for dialysis June 20: Remains intubated on ventilator Dialyzed June 19 next dialysis June 21 Serum sodium 128, will give 250 cc 3% saline Remains full code Discussed with RN Iron panel ordered June 19: Discussed with RN. Patient due for dialysis today. Continue pulmonary support. Remains full code. June 18: Patient dialyzed yesterday June 17 Serum sodium improved but still low Arrange for dialysis tomorrow June 19 Continue per consultants June 17: Due for dialysis today Today's lab reviewed, low serum sodium noted, Emphasized on high sodium bath to dialysis nurse Discussed with SHANIQUE Yuen June 16: Dialyzed yesterday Remains intubated Labs reviewed, serum sodium 131 Plan to dialyze tomorrow June 17 with high sodium bath Discussed with SHANIQUE Yuen June 6: Due for dialysis today Labs reviewed Discussed with RN Transfuse 1 unit of packed RBCs today for low hemoglobin of 7.1 June 5: Blood pressure well maintained Receive dialysis June 13 next hemodialysis June 15June 4: Discussed with RN in ICU Patient did not receive proper dialysis yesterday due to dialysis catheter malfunction Catheter to be adjusted today and dialyzed to be resumed today Continue per consultants Positive for COVID 28 June 2: Patient now intubated on mechanical ventilation Discussed with SHANIQUE Yuen, today June 12 Patient received dialysis yesterday June 10 next hemodialysis June 12 Blood pressure better maintained Today's labs reviewed Continue per consultants Previously patient received dialysis last evening June 05, next dialysis June 07 which was incomplete due to patient's hypotension Will start on midodrine for blood pressure support. Meanwhile continue other pressors as needed Previously Patient is doing poorly, septic, white blood cells are rising, Hypotension somewhat improved We will keep n.p.o. , NG tube for medications, and change medication to IV as needed Patient remains full code Monitor vancomycin level Previously: Patient pulled out his femoral catheter yesterday June 03 which was reinserted by Dr. Mast Patient scheduled for dialysis again June 04, which again was not done due to dialysis nurse citing catheter malfunction Meanwhile continue management per ID, pulmonary , and psych. Meanwhile white blood cell count is rising. Patient blood pressure borderline low. Will check ABG Previously May 31 : I believe patient need dialysis treatment He however needs to competency assessment if can make decisions or not I will communicate with Dr. Mulligan Previously: Per pulmonary and ID advice Adjust blood pressure medication Renal diet Anemia work-up 2D echocardiogram refused Kidney ultrasound refused Jules catheter Urine studies Per orders Subjective ROS Limited/Unobtainable: Yes Objective Objective Last 24 Hour Vital Signs Date Time Temp Pulse Resp B/P (MAP) Pulse Ox O2 Delivery O2 Flow Rate FiO2 06/22/19 11:31 Mechanical Ventilator 06/22/19 11:30 96 25 127/67 (87) 100 06/22/19 11:00 79 25 97/54 (68) 100 06/22/19 10:53 78 26 100 Mechanical Ventilator 40 77 26 40 06/22/19 10:30 79 24 97/49 (65) 100 06/22/19 10:00 80 25 102/53 (69) 100 06/22/19 09:38 112/58 06/22/19 09:30 72 25 156/58 (90) 100 06/22/19 09:00 81 21 117/57 (77) 100 06/22/19 08:30 73 20 117/61 (79) 100 06/22/19 08:00 72 25 100/56 (71) 99 06/22/19 08:00 78 12 90/49 (63) 99 06/22/19 08:00 74 06/22/19 07:30 75 26 99/52 (68) 100 06/22/19 07:13 77 28 100 Mechanical Ventilator 40 74 28 40 06/22/19 07:00 28 Mechanical Ventilator 40 06/22/19 07:00 90/49 06/22/19 07:00 78 12 90/49 (63) 99 06/22/19 06:15 104/54 06/22/19 06:00 75 13 99/50 (66) 100 06/22/19 06:00 27 Mechanical Ventilator 40 06/22/19 06:00 99/50 06/22/19 05:30 81 23 111/68 (82) 100 06/22/19 05:27 98.4 06/22/19 05:00 91 26 119/67 (84) 100 06/22/19 05:00 28 Mechanical Ventilator 40 06/22/19 05:00 119/67 06/22/19 04:30 91 25 127/55 (79) 99 06/22/19 04:12 28 Mechanical Ventilator 40 06/22/19 04:00 98.6 76 24 114/57 (76) 100 06/22/19 04:00 40 06/22/19 04:00 72 06/22/19 04:00 114/57 06/22/19 04:00 Mechanical Ventilator 06/22/19 03:30 71 26 124/55 (78) 100 06/22/19 03:25 72 26 100 Mechanical Ventilator 40 71 26 40 06/22/19 03:00 22 Mechanical Ventilator 40 06/22/19 03:00 129/68 06/22/19 03:00 68 25 129/64 (85) 100 06/22/19 02:30 69 26 127/57 (80) 100 06/22/19 02:00 76 19 124/60 (81) 100 06/22/19 02:00 20 Mechanical Ventilator 40 06/22/19 02:00 120/54 06/22/19 01:30 75 26 109/51 (70) 100 06/22/19 01:00 74 21 113/53 (73) 100 06/22/19 01:00 21 Mechanical Ventilator 40 06/22/19 01:00 113/53 06/22/19 00:30 70 26 97/51 (66) 100 06/22/19 00:00 98.4 79 23 124/66 (85) 100 06/22/19 00:00 71 06/22/19 00:00 26 Mechanical Ventilator 40 06/22/19 00:00 124/66 06/22/19 00:00 Mechanical Ventilator 06/22/19 00:00 40 06/21/19 23:59 68 27 100 Mechanical Ventilator 40 74 27 40 06/21/19 23:30 75 26 109/51 (70) 100 06/21/19 23:00 74 26 112/51 (71) 100 06/21/19 23:00 26 Mechanical Ventilator 40 06/21/19 23:00 112/51 06/21/19 22:30 71 26 101/50 (67) 100 06/21/19 22:00 74 25 98/47 (64) 100 06/21/19 22:00 27 Mechanical Ventilator 40 06/21/19 22:00 98/47 06/21/19 21:30 98.6 68 25 100/49 (66) 100 06/21/19 21:00 27 Mechanical Ventilator 40 06/21/19 21:00 100/49 06/21/19 21:00 69 25 100/51 (67) 100 06/21/19 20:30 67 25 123/64 (83) 100 06/21/19 20:01 69 28 100 Mechanical Ventilator 40 65 27 40 06/21/19 20:00 Mechanical Ventilator 06/21/19 20:00 99.1 68 26 124/59 (80) 100 06/21/19 20:00 26 Mechanical Ventilator 40 06/21/19 20:00 124/59 06/21/19 20:00 76 06/21/19 20:00 40 06/21/19 19:30 73 26 97/52 (67) 100 06/21/19 19:00 83 25 83/50 (61) 100 06/21/19 19:00 25 Endotracheal Tube 40 06/21/19 19:00 83/50 06/21/19 18:45 86 26 87/43 (58) 100 06/21/19 18:30 87 25 85/44 (58) 100 06/21/19 18:18 27 Endotracheal Tube 70.0 40 06/21/19 18:15 87 26 93/48 (63) 100 06/21/19 18:00 98.5 84 26 91/49 (63) 100 06/21/19 18:00 26 Endotracheal Tube 40 06/21/19 18:00 93/48 06/21/19 17:30 83 25 127/53 (77) 100 06/21/19 17:00 70 27 102/50 (67) 100 06/21/19 17:00 27 Bi-pap 40 06/21/19 17:00 99/50 06/21/19 16:45 71 26 104/51 (68) 100 06/21/19 16:30 95.6 73 26 89/50 (63) 100 06/21/19 16:30 89/50 06/21/19 16:15 78 26 82/46 (58) 100 06/21/19 16:00 84 26 97/55 (69) 100 06/21/19 16:00 26 Endotracheal Tube 40 06/21/19 16:00 97/55 06/21/19 16:00 Mechanical Ventilator 06/21/19 16:00 61 06/21/19 16:00 40 06/21/19 15:30 65 26 111/59 (76) 100 06/21/19 15:29 61 06/21/19 15:25 60 26 100 Mechanical Ventilator 40 60 26 40 06/21/19 15:00 26 Endotracheal Tube 40 06/21/19 15:00 112/54 06/21/19 15:00 63 26 112/54 (73) 100 06/21/19 14:30 65 27 103/53 (70) 100 06/21/19 14:00 24 Endotracheal Tube 40 06/21/19 14:00 90/44 06/21/19 14:00 74 24 90/44 (59) 100 06/21/19 13:30 74 25 92/50 (64) 99 06/21/19 13:00 73 26 104/55 (71) 100 06/21/19 13:00 26 Endotracheal Tube 40 06/21/19 13:00 93/52 06/21/19 12:30 71 26 105/58 (74) 100 06/21/19 12:00 Mechanical Ventilator 06/21/19 12:00 Mechanical Ventilator 06/21/19 12:00 97.9 75 27 112/59 (76) 100 06/21/19 12:00 27 Endotracheal Tube 40 06/21/19 12:00 127/62 06/21/19 12:00 40 Intake and Output 06/21/19 06/22/19 19:00 07:00 Intake Total 1762.07 ml 1202.84 ml Output Total 50 ml 10 ml Balance 1712.07 ml 1192.84 ml Free Water 600 ml 240 ml IV Total 802.07 ml 587.84 ml Tube Feeding 360 ml 375 ml Output Urine Total 50 ml 10 ml Laboratory Tests 06/22/19 06:13: White Blood Count 13.0H, Red Blood Count 2.73L, Hemoglobin 8.2L, Hematocrit 25.5L, Mean Corpuscular Volume 94, Mean Corpuscular Hemoglobin 30.0, Mean Corpuscular Hemoglobin Concent 32.1, Red Cell Distribution Width 18.7H, Platelet Count 264, Mean Platelet Volume 7.4, Neutrophils (%) (Auto) , Lymphocytes (%) (Auto) , Monocytes (%) (Auto) , Eosinophils (%) (Auto) , Basophils (%) (Auto) , Differential Total Cells Counted 100, Neutrophils % ( Manual) 88H, Lymphocytes % (Manual) 6L, Monocytes % (Manual) 5, Eosinophils % ( Manual) 0, Basophils % (Manual) 0, Band Neutrophils 1, Platelet Estimate Adequate, Platelet Morphology Normal, Anisocytosis 1+, Sodium Level 127L, Potassium Level 3.7, Chloride Level 88L, Carbon Dioxide Level 24, Blood Urea Nitrogen 64H, Creatinine 8.2H, Estimat Glomerular Filtration Rate 6.6, Glucose Level 212H, Calcium Level 8.4L, Iron Level 21L, Total Iron Binding Capacity 101L , Percent Iron Saturation 21, Unsaturated Iron Binding 80L, Ferritin 414H, Total Bilirubin 0.4, Aspartate Amino Transf (AST/SGOT) 17, Alanine Aminotransferase (ALT/SGPT) 12, Alkaline Phosphatase 71, Total Protein 7.6, Albumin 1.6L, Globulin 6.0, Albumin/Globulin Ratio 0.3L Height (Feet): 6 Height (Inches): 1.00 Weight (Pounds): 245 General Appearance: no apparent distress EENT: other - Intubated and vented Cardiovascular: tachycardia Respiratory/Chest: decreased breath sounds Abdomen: distended Objective No change Mic Cole MD June 22, 2019 11:52
--- NOTE | 2019-06-22 12:19 | Cardiac Electrophysiology PN ---
Assessment/Plan Assessment/Plan 1. Elevated troponin. Troponin on May 27 and May 30 were negative; however , on June 01, it was elevated at 0.074. Repeat 0.05. Likely due to renal failure. On Aspirin. EF 60%. 2. Septic shock. On Levo 8 mc and iv ABx 3. ESRD, on hemodialysis per Dr. Cole. 4. Respiratory failure due to COVID-19 positive pneumonia. On the Vent with 40% Fio2. Fu by Dr. Leyva and Dr. Mckeon. 5. MRSA carrier. 6. COPD. 7. Anemia. 8. Depression. 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 In SR. Is Covid positive x 3. Getting HD Objective Last 24 Hour Vital Signs Date Time Temp Pulse Resp B/P (MAP) Pulse Ox O2 Delivery O2 Flow Rate FiO2 06/22/19 12:00 100 06/22/19 11:31 Mechanical Ventilator 06/22/19 11:30 96 25 127/67 (87) 100 06/22/19 11:00 79 25 97/54 (68) 100 06/22/19 10:53 78 26 100 Mechanical Ventilator 40 77 26 40 06/22/19 10:30 79 24 97/49 (65) 100 06/22/19 10:00 80 25 102/53 (69) 100 06/22/19 09:38 112/58 06/22/19 09:30 72 25 156/58 (90) 100 06/22/19 09:00 81 21 117/57 (77) 100 06/22/19 08:30 73 20 117/61 (79) 100 06/22/19 08:00 72 25 100/56 (71) 99 06/22/19 08:00 78 12 90/49 (63) 99 06/22/19 08:00 74 06/22/19 07:30 75 26 99/52 (68) 100 06/22/19 07:13 77 28 100 Mechanical Ventilator 40 74 28 40 06/22/19 07:00 28 Mechanical Ventilator 40 06/22/19 07:00 90/49 06/22/19 07:00 78 12 90/49 (63) 99 06/22/19 06:15 104/54 06/22/19 06:00 75 13 99/50 (66) 100 06/22/19 06:00 27 Mechanical Ventilator 40 06/22/19 06:00 99/50 06/22/19 05:30 81 23 111/68 (82) 100 06/22/19 05:27 98.4 06/22/19 05:00 91 26 119/67 (84) 100 06/22/19 05:00 28 Mechanical Ventilator 40 06/22/19 05:00 119/67 06/22/19 04:30 91 25 127/55 (79) 99 06/22/19 04:12 28 Mechanical Ventilator 40 06/22/19 04:00 98.6 76 24 114/57 (76) 100 06/22/19 04:00 40 06/22/19 04:00 72 06/22/19 04:00 114/57 06/22/19 04:00 Mechanical Ventilator 06/22/19 03:30 71 26 124/55 (78) 100 06/22/19 03:25 72 26 100 Mechanical Ventilator 40 71 26 40 06/22/19 03:00 22 Mechanical Ventilator 40 06/22/19 03:00 129/68 06/22/19 03:00 68 25 129/64 (85) 100 06/22/19 02:30 69 26 127/57 (80) 100 06/22/19 02:00 76 19 124/60 (81) 100 06/22/19 02:00 20 Mechanical Ventilator 40 06/22/19 02:00 120/54 06/22/19 01:30 75 26 109/51 (70) 100 06/22/19 01:00 74 21 113/53 (73) 100 06/22/19 01:00 21 Mechanical Ventilator 40 06/22/19 01:00 113/53 06/22/19 00:30 70 26 97/51 (66) 100 06/22/19 00:00 98.4 79 23 124/66 (85) 100 06/22/19 00:00 71 06/22/19 00:00 26 Mechanical Ventilator 40 06/22/19 00:00 124/66 06/22/19 00:00 Mechanical Ventilator 06/22/19 00:00 40 06/21/19 23:59 68 27 100 Mechanical Ventilator 40 74 27 40 06/21/19 23:30 75 26 109/51 (70) 100 5/11/20 23:00 74 26 112/51 (71) 100 06/21/19 23:00 26 Mechanical Ventilator 40 06/21/19 23:00 112/51 06/21/19 22:30 71 26 101/50 (67) 100 06/21/19 22:00 74 25 98/47 (64) 100 06/21/19 22:00 27 Mechanical Ventilator 40 06/21/19 22:00 98/47 06/21/19 21:30 98.6 68 25 100/49 (66) 100 06/21/19 21:00 27 Mechanical Ventilator 40 06/21/19 21:00 100/49 06/21/19 21:00 69 25 100/51 (67) 100 06/21/19 20:30 67 25 123/64 (83) 100 06/21/19 20:01 69 28 100 Mechanical Ventilator 40 65 27 40 06/21/19 20:00 Mechanical Ventilator 06/21/19 20:00 99.1 68 26 124/59 (80) 100 06/21/19 20:00 26 Mechanical Ventilator 40 06/21/19 20:00 124/59 06/21/19 20:00 76 06/21/19 20:00 40 06/21/19 19:30 73 26 97/52 (67) 100 06/21/19 19:00 83 25 83/50 (61) 100 06/21/19 19:00 25 Endotracheal Tube 40 06/21/19 19:00 83/50 06/21/19 18:45 86 26 87/43 (58) 100 06/21/19 18:30 87 25 85/44 (58) 100 06/21/19 18:18 27 Endotracheal Tube 70.0 40 06/21/19 18:15 87 26 93/48 (63) 100 06/21/19 18:00 98.5 84 26 91/49 (63) 100 06/21/19 18:00 26 Endotracheal Tube 40 06/21/19 18:00 93/48 06/21/19 17:30 83 25 127/53 (77) 100 06/21/19 17:00 70 27 102/50 (67) 100 06/21/19 17:00 27 Bi-pap 40 06/21/19 17:00 99/50 06/21/19 16:45 71 26 104/51 (68) 100 06/21/19 16:30 95.6 73 26 89/50 (63) 100 06/21/19 16:30 89/50 06/21/19 16:15 78 26 82/46 (58) 100 06/21/19 16:00 84 26 97/55 (69) 100 06/21/19 16:00 26 Endotracheal Tube 40 06/21/19 16:00 97/55 06/21/19 16:00 Mechanical Ventilator 06/21/19 16:00 61 06/21/19 16:00 40 06/21/19 15:30 65 26 111/59 (76) 100 06/21/19 15:29 61 06/21/19 15:25 60 26 100 Mechanical Ventilator 40 60 26 40 06/21/19 15:00 26 Endotracheal Tube 40 06/21/19 15:00 112/54 06/21/19 15:00 63 26 112/54 (73) 100 06/21/19 14:30 65 27 103/53 (70) 100 06/21/19 14:00 24 Endotracheal Tube 40 06/21/19 14:00 90/44 06/21/19 14:00 74 24 90/44 (59) 100 06/21/19 13:30 74 25 92/50 (64) 99 06/21/19 13:00 73 26 104/55 (71) 100 06/21/19 13:00 26 Endotracheal Tube 40 06/21/19 13:00 93/52 06/21/19 12:30 71 26 105/58 (74) 100 Intake and Output 06/21/19 06/22/19 19:00 07:00 Intake Total 1762.07 ml 1202.84 ml Output Total 50 ml 10 ml Balance 1712.07 ml 1192.84 ml Free Water 600 ml 240 ml IV Total 802.07 ml 587.84 ml Tube Feeding 360 ml 375 ml Output Urine Total 50 ml 10 ml Laboratory Tests Test 06/22/19 06:13 White Blood Count 13.0 K/UL (4.8-10.8) H Red Blood Count 2.73 M/UL (4.70-6.10) L Hemoglobin 8.2 G/DL (14.2-18.0) L Hematocrit 25.5 % (42.0-52.0) L Mean Corpuscular Volume 94 FL (80-99) Mean Corpuscular Hemoglobin 30.0 PG (27.0-31.0) Mean Corpuscular Hemoglobin Concent 32.1 G/DL (32.0-36.0) Red Cell Distribution Width 18.7 % (11.6-14.8) H Platelet Count 264 K/UL (150-450) Mean Platelet Volume 7.4 FL (6.5-10.1) Neutrophils (%) (Auto) % (45.0-75.0) Lymphocytes (%) (Auto) % (20.0-45.0) Monocytes (%) (Auto) % (1.0-10.0) Eosinophils (%) (Auto) % (0.0-3.0) Basophils (%) (Auto) % (0.0-2.0) Differential Total Cells Counted 100 Neutrophils % (Manual) 88 % (45-75) H Lymphocytes % (Manual) 6 % (20-45) L Monocytes % (Manual) 5 % (1-10) Eosinophils % (Manual) 0 % (0-3) Basophils % (Manual) 0 % (0-2) Band Neutrophils 1 % (0-8) Platelet Estimate Adequate Platelet Morphology Normal Anisocytosis 1+ Sodium Level 127 MMOL/L (136-145) L Potassium Level 3.7 MMOL/L (3.5-5.1) Chloride Level 88 MMOL/L (98-107) L Carbon Dioxide Level 24 MMOL/L (21-32) Blood Urea Nitrogen 64 mg/dL (7-18) H Creatinine 8.2 MG/DL (0.55-1.30) H Estimat Glomerular Filtration Rate 6.6 mL/min (>60) Glucose Level 212 MG/DL (74-106) H Calcium Level 8.4 MG/DL (8.5-10.1) L Iron Level 21 ug/dL (50-175) L Total Iron Binding Capacity 101 ug/dL (250-450) L Percent Iron Saturation 21 % (15-50) Unsaturated Iron Binding 80 ug/dL (112-346) L Ferritin 414 NG/ML (8-388) H Total Bilirubin 0.4 MG/DL (0.2-1.0) Aspartate Amino Transf (AST/SGOT) 17 U/L (15-37) Alanine Aminotransferase (ALT/SGPT) 12 U/L (12-78) Alkaline Phosphatase 71 U/L (46-116) Total Protein 7.6 G/DL (6.4-8.2) Albumin 1.6 G/DL (3.4-5.0) L Globulin 6.0 g/dL Albumin/Globulin Ratio 0.3 (1.0-2.7) L Microbiology Date/Time Source Procedure Growth Status 06/20/19 13:00 Nasopharynx Coronavirus COVID-19 PCR ([facility]) - Final Complete Objective HEAD AND NECK: No JVD.Orally intubated LUNGS: Decreased breath sounds. CARDIOVASCULAR: Regular S1 and S2. Tachycardic. ABDOMEN: Soft. EXTREMITIES: No pitting edema. New Left [facility] Gio Engle MD June 22, 2019 12:19
--- NOTE | 2019-06-22 12:28 | Surgery Progress Note ---
Surgery Progress Note Subjective Procedure Performed Right femoral temporary hemodialysis catheter insertion Additional Comments leukocytosis anemia deconditioned receiving HD Objective Last 24 Hour Vital Signs Date Time Temp Pulse Resp B/P (MAP) Pulse Ox O2 Delivery O2 Flow Rate FiO2 06/22/19 12:00 100 06/22/19 12:00 40 06/22/19 11:31 Mechanical Ventilator 06/22/19 11:30 96 25 127/67 (87) 100 06/22/19 11:00 79 25 97/54 (68) 100 06/22/19 10:53 78 26 100 Mechanical Ventilator 40 77 26 40 06/22/19 10:30 79 24 97/49 (65) 100 06/22/19 10:00 80 25 102/53 (69) 100 06/22/19 09:38 112/58 06/22/19 09:30 72 25 156/58 (90) 100 06/22/19 09:00 81 21 117/57 (77) 100 06/22/19 08:30 73 20 117/61 (79) 100 06/22/19 08:00 72 25 100/56 (71) 99 06/22/19 08:00 40 06/22/19 08:00 78 12 90/49 (63) 99 06/22/19 08:00 74 06/22/19 07:30 75 26 99/52 (68) 100 06/22/19 07:13 77 28 100 Mechanical Ventilator 40 74 28 40 06/22/19 07:00 28 Mechanical Ventilator 40 06/22/19 07:00 90/49 06/22/19 07:00 78 12 90/49 (63) 99 06/22/19 06:15 104/54 06/22/19 06:00 75 13 99/50 (66) 100 06/22/19 06:00 27 Mechanical Ventilator 40 06/22/19 06:00 99/50 06/22/19 05:30 81 23 111/68 (82) 100 06/22/19 05:27 98.4 06/22/19 05:00 91 26 119/67 (84) 100 06/22/19 05:00 28 Mechanical Ventilator 40 06/22/19 05:00 119/67 06/22/19 04:30 91 25 127/55 (79) 99 06/22/19 04:12 28 Mechanical Ventilator 40 06/22/19 04:00 98.6 76 24 114/57 (76) 100 06/22/19 04:00 40 06/22/19 04:00 72 06/22/19 04:00 114/57 06/22/19 04:00 Mechanical Ventilator 06/22/19 03:30 71 26 124/55 (78) 100 06/22/19 03:25 72 26 100 Mechanical Ventilator 40 71 26 40 06/22/19 03:00 22 Mechanical Ventilator 40 06/22/19 03:00 129/68 06/22/19 03:00 68 25 129/64 (85) 100 06/22/19 02:30 69 26 127/57 (80) 100 06/22/19 02:00 76 19 124/60 (81) 100 06/22/19 02:00 20 Mechanical Ventilator 40 06/22/19 02:00 120/54 06/22/19 01:30 75 26 109/51 (70) 100 06/22/19 01:00 74 21 113/53 (73) 100 06/22/19 01:00 21 Mechanical Ventilator 40 06/22/19 01:00 113/53 06/22/19 00:30 70 26 97/51 (66) 100 06/22/19 00:00 98.4 79 23 124/66 (85) 100 06/22/19 00:00 71 06/22/19 00:00 26 Mechanical Ventilator 40 06/22/19 00:00 124/66 06/22/19 00:00 Mechanical Ventilator 06/22/19 00:00 40 06/21/19 23:59 68 27 100 Mechanical Ventilator 40 74 27 40 06/21/19 23:30 75 26 109/51 (70) 100 06/21/19 23:00 74 26 112/51 (71) 100 06/21/19 23:00 26 Mechanical Ventilator 40 06/21/19 23:00 112/51 06/21/19 22:30 71 26 101/50 (67) 100 06/21/19 22:00 74 25 98/47 (64) 100 06/21/19 22:00 27 Mechanical Ventilator 40 06/21/19 22:00 98/47 06/21/19 21:30 98.6 68 25 100/49 (66) 100 06/21/19 21:00 27 Mechanical Ventilator 40 06/21/19 21:00 100/49 06/21/19 21:00 69 25 100/51 (67) 100 06/21/19 20:30 67 25 123/64 (83) 100 06/21/19 20:01 69 28 100 Mechanical Ventilator 40 65 27 40 06/21/19 20:00 Mechanical Ventilator 06/21/19 20:00 99.1 68 26 124/59 (80) 100 06/21/19 20:00 26 Mechanical Ventilator 40 06/21/19 20:00 124/59 06/21/19 20:00 76 06/21/19 20:00 40 06/21/19 19:30 73 26 97/52 (67) 100 06/21/19 19:00 83 25 83/50 (61) 100 06/21/19 19:00 25 Endotracheal Tube 40 06/21/19 19:00 83/50 06/21/19 18:45 86 26 87/43 (58) 100 06/21/19 18:30 87 25 85/44 (58) 100 06/21/19 18:18 27 Endotracheal Tube 70.0 40 06/21/19 18:15 87 26 93/48 (63) 100 06/21/19 18:00 98.5 84 26 91/49 (63) 100 06/21/19 18:00 26 Endotracheal Tube 40 06/21/19 18:00 93/48 06/21/19 17:30 83 25 127/53 (77) 100 06/21/19 17:00 70 27 102/50 (67) 100 06/21/19 17:00 27 Bi-pap 40 06/21/19 17:00 99/50 06/21/19 16:45 71 26 104/51 (68) 100 06/21/19 16:30 95.6 73 26 89/50 (63) 100 06/21/19 16:30 89/50 06/21/19 16:15 78 26 82/46 (58) 100 06/21/19 16:00 84 26 97/55 (69) 100 06/21/19 16:00 26 Endotracheal Tube 40 06/21/19 16:00 97/55 06/21/19 16:00 Mechanical Ventilator 06/21/19 16:00 61 06/21/19 16:00 40 06/21/19 15:30 65 26 111/59 (76) 100 06/21/19 15:29 61 06/21/19 15:25 60 26 100 Mechanical Ventilator 40 60 26 40 06/21/19 15:00 26 Endotracheal Tube 40 06/21/19 15:00 112/54 06/21/19 15:00 63 26 112/54 (73) 100 06/21/19 14:30 65 27 103/53 (70) 100 06/21/19 14:00 24 Endotracheal Tube 40 06/21/19 14:00 90/44 06/21/19 14:00 74 24 90/44 (59) 100 06/21/19 13:30 74 25 92/50 (64) 99 06/21/19 13:00 73 26 104/55 (71) 100 06/21/19 13:00 26 Endotracheal Tube 40 06/21/19 13:00 93/52 06/21/19 12:30 71 26 105/58 (74) 100 I&O Intake and Output 06/21/19 06/22/19 19:00 07:00 Intake Total 1762.07 ml 1202.84 ml Output Total 50 ml 10 ml Balance 1712.07 ml 1192.84 ml Free Water 600 ml 240 ml IV Total 802.07 ml 587.84 ml Tube Feeding 360 ml 375 ml Output Urine Total 50 ml 10 ml Dressing: other Wound: other Drains: other Cardiovascular: RSR Respiratory: decreased breath sounds Abdomen: soft, non-distended, decreased bowel sounds Extremities: edema, no cyanosis Laboratory Tests Test 06/22/19 06:13 White Blood Count 13.0 K/UL (4.8-10.8) H Red Blood Count 2.73 M/UL (4.70-6.10) L Hemoglobin 8.2 G/DL (14.2-18.0) L Hematocrit 25.5 % (42.0-52.0) L Mean Corpuscular Volume 94 FL (80-99) Mean Corpuscular Hemoglobin 30.0 PG (27.0-31.0) Mean Corpuscular Hemoglobin Concent 32.1 G/DL (32.0-36.0) Red Cell Distribution Width 18.7 % (11.6-14.8) H Platelet Count 264 K/UL (150-450) Mean Platelet Volume 7.4 FL (6.5-10.1) Neutrophils (%) (Auto) % (45.0-75.0) Lymphocytes (%) (Auto) % (20.0-45.0) Monocytes (%) (Auto) % (1.0-10.0) Eosinophils (%) (Auto) % (0.0-3.0) Basophils (%) (Auto) % (0.0-2.0) Differential Total Cells Counted 100 Neutrophils % (Manual) 88 % (45-75) H Lymphocytes % (Manual) 6 % (20-45) L Monocytes % (Manual) 5 % (1-10) Eosinophils % (Manual) 0 % (0-3) Basophils % (Manual) 0 % (0-2) Band Neutrophils 1 % (0-8) Platelet Estimate Adequate Platelet Morphology Normal Anisocytosis 1+ Sodium Level 127 MMOL/L (136-145) L Potassium Level 3.7 MMOL/L (3.5-5.1) Chloride Level 88 MMOL/L (98-107) L Carbon Dioxide Level 24 MMOL/L (21-32) Blood Urea Nitrogen 64 mg/dL (7-18) H Creatinine 8.2 MG/DL (0.55-1.30) H Estimat Glomerular Filtration Rate 6.6 mL/min (>60) Glucose Level 212 MG/DL (74-106) H Calcium Level 8.4 MG/DL (8.5-10.1) L Iron Level 21 ug/dL (50-175) L Total Iron Binding Capacity 101 ug/dL (250-450) L Percent Iron Saturation 21 % (15-50) Unsaturated Iron Binding 80 ug/dL (112-346) L Ferritin 414 NG/ML (8-388) H Total Bilirubin 0.4 MG/DL (0.2-1.0) Aspartate Amino Transf (AST/SGOT) 17 U/L (15-37) Alanine Aminotransferase (ALT/SGPT) 12 U/L (12-78) Alkaline Phosphatase 71 U/L (46-116) Total Protein 7.6 G/DL (6.4-8.2) Albumin 1.6 G/DL (3.4-5.0) L Globulin 6.0 g/dL Albumin/Globulin Ratio 0.3 (1.0-2.7) L Plan Problems: (1) Suspected COVID-19 virus infection (2) HTN (hypertension) (3) CASSANDRA (acute kidney injury) Assessment & Plan: Needs urgent HD needs access patient okay and consented see note will follow with recs new line placed discussed with team and nephrology HD line functional when checked has TPA now please use appropriately Cathflo used again this flow during dialysis on 430 was low. Will monitor may need line change 5/ plan for HD as per renal may need to take fluid off with HD edema anasarca dressings saturated and changed will monitor (4) Anemia in chronic kidney disease (CKD) (5) Anemia (6) Renal failure (7) Suspected COVID-19 virus infection Assessment & Plan: Pt deconditioned and despite all skin preventions Pt noted to have developed several pressure injuries. . Stable dry eschar noted to clefts of R and L ears. No erythema noted . DTPI noted to L trochanter. Base of injury is maroon in colour with marginal erythema along borders. Partially opened DTPI Sacrum, R and L Buttocks. Base of wound is maroon with two small open wounds L sacrum and L buttocks. Pt has an APM/MOMO Mattress overlay and is being positioned with pillows as per tolerance and within protocols. Tx.Plan: Apply Cavilon Skin Barrier to both ears Daily and prn. Apply Moisture Barrier Paste to Sacrum,R and L Buttocks. Cover with Optifoam drsgs. Change every 3 days and PRN. Apply Cavilon Skin Barrier to R and L trochanter. Cover each site with Optifoam drsgs.Change every 7 days and PRN. Apply Cavilon Skin Barrier to both heels. Cover each heel with Optifoam drsg. Change every 7 days and prn. Off-load heels with pillow. Reposition at least every 2hours or as tolerated. APM/MOMO Mattress overlay. (8) COVID-19 Assessment & Plan: COVID + c diff negative febrile leukocytosis renal insufficiency see above cont resp care Rx as per ID worsening on vent support now cxr noted on pressors prognosis guarded repeat covid ++ weaning vent and pressors off slowly showing improvement Yaniv Mast June 22, 2019 12:28
--- NOTE | 2019-06-22 12:39 | Infectious Diseases Prog Note ---
Assessment/Plan Assessment/Plan IMPRESSION: 1. COVID19 pneumonia Positive: 05/27, 05/31 , 06/05, 06/09 ,06/17, 06/19 2. MRSA carrier. 3. Chronic kidney disease , end-stage renal disease. 4. COPD. 5. Hypertension. 6. Anemia. 7. Hypothyroidism. 8. Hyperlipidemia. 9. Major depression. 10. Leukocytosis 11. Hypotension 12. Hepatitis C 13. Hyperuricemia 14. Diarrhea 15. septic shock 16. Leukocytosis improving RECOMMENDATIONS: Continue Zosyn x 1 day Disconyinue Vancomycin Repeat CXR shows slight improvement Finished hydroxychloroquine. Will f/u COVID19 test Subjective ROS Limited/Unobtainable: Yes Constitutional: Denies: fever Cardiovascular: Reports: other - on levophed Allergies: Coded Allergies: No Known Allergies (Unverified , 05/28/19) Objective Vital Signs Last 24 Hour Vital Signs Date Time Temp Pulse Resp B/P (MAP) Pulse Ox O2 Delivery O2 Flow Rate FiO2 06/22/19 12:00 100 06/22/19 12:00 40 06/22/19 11:31 Mechanical Ventilator 06/22/19 11:30 96 25 127/67 (87) 100 06/22/19 11:00 79 25 97/54 (68) 100 06/22/19 10:53 78 26 100 Mechanical Ventilator 40 77 26 40 06/22/19 10:30 79 24 97/49 (65) 100 06/22/19 10:00 80 25 102/53 (69) 100 06/22/19 09:38 112/58 06/22/19 09:30 72 25 156/58 (90) 100 06/22/19 09:00 81 21 117/57 (77) 100 06/22/19 08:30 73 20 117/61 (79) 100 06/22/19 08:00 72 25 100/56 (71) 99 06/22/19 08:00 40 06/22/19 08:00 78 12 90/49 (63) 99 06/22/19 08:00 74 06/22/19 07:30 75 26 99/52 (68) 100 06/22/19 07:13 77 28 100 Mechanical Ventilator 40 74 28 40 06/22/19 07:00 28 Mechanical Ventilator 40 06/22/19 07:00 90/49 06/22/19 07:00 78 12 90/49 (63) 99 06/22/19 06:15 104/54 06/22/19 06:00 75 13 99/50 (66) 100 06/22/19 06:00 27 Mechanical Ventilator 40 06/22/19 06:00 99/50 06/22/19 05:30 81 23 111/68 (82) 100 06/22/19 05:27 98.4 06/22/19 05:00 91 26 119/67 (84) 100 06/22/19 05:00 28 Mechanical Ventilator 40 06/22/19 05:00 119/67 06/22/19 04:30 91 25 127/55 (79) 99 06/22/19 04:12 28 Mechanical Ventilator 40 06/22/19 04:00 98.6 76 24 114/57 (76) 100 06/22/19 04:00 40 06/22/19 04:00 72 06/22/19 04:00 114/57 06/22/19 04:00 Mechanical Ventilator 06/22/19 03:30 71 26 124/55 (78) 100 06/22/19 03:25 72 26 100 Mechanical Ventilator 40 71 26 40 06/22/19 03:00 22 Mechanical Ventilator 40 06/22/19 03:00 129/68 06/22/19 03:00 68 25 129/64 (85) 100 06/22/19 02:30 69 26 127/57 (80) 100 06/22/19 02:00 76 19 124/60 (81) 100 06/22/19 02:00 20 Mechanical Ventilator 40 06/22/19 02:00 120/54 06/22/19 01:30 75 26 109/51 (70) 100 06/22/19 01:00 74 21 113/53 (73) 100 06/22/19 01:00 21 Mechanical Ventilator 40 06/22/19 01:00 113/53 06/22/19 00:30 70 26 97/51 (66) 100 06/22/19 00:00 98.4 79 23 124/66 (85) 100 06/22/19 00:00 71 06/22/19 00:00 26 Mechanical Ventilator 40 06/22/19 00:00 124/66 06/22/19 00:00 Mechanical Ventilator 06/22/19 00:00 40 06/21/19 23:59 68 27 100 Mechanical Ventilator 40 74 27 40 06/21/19 23:30 75 26 109/51 (70) 100 06/21/19 23:00 74 26 112/51 (71) 100 06/21/19 23:00 26 Mechanical Ventilator 40 06/21/19 23:00 112/51 06/21/19 22:30 71 26 101/50 (67) 100 06/21/19 22:00 74 25 98/47 (64) 100 06/21/19 22:00 27 Mechanical Ventilator 40 06/21/19 22:00 98/47 06/21/19 21:30 98.6 68 25 100/49 (66) 100 06/21/19 21:00 27 Mechanical Ventilator 40 06/21/19 21:00 100/49 06/21/19 21:00 69 25 100/51 (67) 100 06/21/19 20:30 67 25 123/64 (83) 100 06/21/19 20:01 69 28 100 Mechanical Ventilator 40 65 27 40 06/21/19 20:00 Mechanical Ventilator 06/21/19 20:00 99.1 68 26 124/59 (80) 100 06/21/19 20:00 26 Mechanical Ventilator 40 06/21/19 20:00 124/59 06/21/19 20:00 76 06/21/19 20:00 40 06/21/19 19:30 73 26 97/52 (67) 100 06/21/19 19:00 83 25 83/50 (61) 100 06/21/19 19:00 25 Endotracheal Tube 40 06/21/19 19:00 83/50 06/21/19 18:45 86 26 87/43 (58) 100 06/21/19 18:30 87 25 85/44 (58) 100 06/21/19 18:18 27 Endotracheal Tube 70.0 40 06/21/19 18:15 87 26 93/48 (63) 100 06/21/19 18:00 98.5 84 26 91/49 (63) 100 06/21/19 18:00 26 Endotracheal Tube 40 06/21/19 18:00 93/48 06/21/19 17:30 83 25 127/53 (77) 100 06/21/19 17:00 70 27 102/50 (67) 100 06/21/19 17:00 27 Bi-pap 40 06/21/19 17:00 99/50 06/21/19 16:45 71 26 104/51 (68) 100 06/21/19 16:30 95.6 73 26 89/50 (63) 100 06/21/19 16:30 89/50 06/21/19 16:15 78 26 82/46 (58) 100 06/21/19 16:00 84 26 97/55 (69) 100 06/21/19 16:00 26 Endotracheal Tube 40 06/21/19 16:00 97/55 06/21/19 16:00 Mechanical Ventilator 06/21/19 16:00 61 06/21/19 16:00 40 06/21/19 15:30 65 26 111/59 (76) 100 06/21/19 15:29 61 06/21/19 15:25 60 26 100 Mechanical Ventilator 40 60 26 40 06/21/19 15:00 26 Endotracheal Tube 40 06/21/19 15:00 112/54 06/21/19 15:00 63 26 112/54 (73) 100 06/21/19 14:30 65 27 103/53 (70) 100 06/21/19 14:00 24 Endotracheal Tube 40 06/21/19 14:00 90/44 06/21/19 14:00 74 24 90/44 (59) 100 06/21/19 13:30 74 25 92/50 (64) 99 06/21/19 13:00 73 26 104/55 (71) 100 06/21/19 13:00 26 Endotracheal Tube 40 06/21/19 13:00 93/52 Height (Feet): 6 Height (Inches): 1.00 Weight (Pounds): 245 HEENT: other - orally intubated Respiratory/Chest: other - on ventilator Cardiovascular: normal rate, other - Subclavian central line, femoral HD line Abdomen: soft, non tender, other - NG tube Extremities: other - legs edema Neurologic/Psychiatric: other - sedated Microbiology Date/Time Source Procedure Growth Status 06/20/19 13:00 Nasopharynx Coronavirus COVID-19 PCR ([facility]) - Final Complete Laboratory Tests Test 06/22/19 06:13 White Blood Count 13.0 K/UL (4.8-10.8) H Red Blood Count 2.73 M/UL (4.70-6.10) L Hemoglobin 8.2 G/DL (14.2-18.0) L Hematocrit 25.5 % (42.0-52.0) L Mean Corpuscular Volume 94 FL (80-99) Mean Corpuscular Hemoglobin 30.0 PG (27.0-31.0) Mean Corpuscular Hemoglobin Concent 32.1 G/DL (32.0-36.0) Red Cell Distribution Width 18.7 % (11.6-14.8) H Platelet Count 264 K/UL (150-450) Mean Platelet Volume 7.4 FL (6.5-10.1) Neutrophils (%) (Auto) % (45.0-75.0) Lymphocytes (%) (Auto) % (20.0-45.0) Monocytes (%) (Auto) % (1.0-10.0) Eosinophils (%) (Auto) % (0.0-3.0) Basophils (%) (Auto) % (0.0-2.0) Differential Total Cells Counted 100 Neutrophils % (Manual) 88 % (45-75) H Lymphocytes % (Manual) 6 % (20-45) L Monocytes % (Manual) 5 % (1-10) Eosinophils % (Manual) 0 % (0-3) Basophils % (Manual) 0 % (0-2) Band Neutrophils 1 % (0-8) Platelet Estimate Adequate Platelet Morphology Normal Anisocytosis 1+ Sodium Level 127 MMOL/L (136-145) L Potassium Level 3.7 MMOL/L (3.5-5.1) Chloride Level 88 MMOL/L (98-107) L Carbon Dioxide Level 24 MMOL/L (21-32) Blood Urea Nitrogen 64 mg/dL (7-18) H Creatinine 8.2 MG/DL (0.55-1.30) H Estimat Glomerular Filtration Rate 6.6 mL/min (>60) Glucose Level 212 MG/DL (74-106) H Calcium Level 8.4 MG/DL (8.5-10.1) L Iron Level 21 ug/dL (50-175) L Total Iron Binding Capacity 101 ug/dL (250-450) L Percent Iron Saturation 21 % (15-50) Unsaturated Iron Binding 80 ug/dL (112-346) L Ferritin 414 NG/ML (8-388) H Total Bilirubin 0.4 MG/DL (0.2-1.0) Aspartate Amino Transf (AST/SGOT) 17 U/L (15-37) Alanine Aminotransferase (ALT/SGPT) 12 U/L (12-78) Alkaline Phosphatase 71 U/L (46-116) Total Protein 7.6 G/DL (6.4-8.2) Albumin 1.6 G/DL (3.4-5.0) L Globulin 6.0 g/dL Albumin/Globulin Ratio 0.3 (1.0-2.7) L Current Medications Medications (Trade) Dose Ordered Sig/Anthony Route PRN Reason Start Time Stop Time Status Last Admin Dose Admin Acetaminophen (Tylenol) 650 mg Q4H PRN NG Temp >100.5 06/13/19 11:00 07/13/19 10:59 06/20/19 17:38 Albumin Human 100 ml @ 100 mls/hr ONCE ONCE IVPB 06/22/19 11:45 06/22/19 12:44 Albuterol Sulfate (Proventil MDI) 2 puff Q4HRT INH 06/06/19 23:00 08/30/19 18:59 06/22/19 10:53 Chlorhexidine Gluconate (Michelle-Hex 2%) 1 applic DAILY@2000 TOPIC 06/07/19 20:00 09/05/19 19:59 06/21/19 20:13 Dextrose (Dextrose 50%) 25 ml Q30M PRN IV Hypoglycemia 06/20/19 19:30 09/18/19 19:29 Dextrose (Dextrose 50%) 50 ml Q30M PRN IV Hypoglycemia 06/20/19 19:30 09/18/19 19:29 Docusate Sodium (Colace) 100 mg THREE TIMES A DAY NG 06/07/19 13:00 07/07/19 12:59 06/22/19 09:37 Dopamine HCl/ Dextrose 250 ml @ 0 mls/hr Q24H PRN IV For hypotension 06/13/19 08:15 09/11/19 08:14 Enoxaparin Sodium (Lovenox) 30 mg DAILY SUBQ 06/07/19 09:00 08/27/19 08:59 06/22/19 10:12 Epoetin Aftab (Epoetin Aftab(ESRD on dialysis)) 10,000 unit SUBQ 06/07/19 21:00 08/31/19 20:59 06/21/19 20:48 Fentanyl Citrate 2500 mcg/Sodium Chloride 250 ml @ 0 mls/hr Q24H IV 06/20/19 07:45 06/27/19 07:44 06/22/19 11:31 Hydralazine HCl (Apresoline) 10 mg Q4H PRN IV Blood pressure over 160 systol 06/07/19 10:15 09/05/19 10:14 Insulin Aspart (NovoLOG) EVERY 6 HOURS SUBQ 06/21/19 00:00 09/19/19 00:00 06/22/19 06:15 Metoclopramide HCl (Reglan) 5 mg Q8H PRN IVP Nausea & Vomiting 06/18/19 12:00 07/18/19 11:59 06/19/19 00:50 Midodrine (Pro-Amatine) 10 mg THREE TIMES A DAY NG 06/09/19 13:00 09/07/19 12:59 06/22/19 09:37 Norepinephrine Bitartrate 16 mg/ Dextrose 566 ml @ 0 mls/hr Q24H IV 06/13/19 09:45 07/13/19 09:44 06/22/19 09:38 Pantoprazole (Protonix) 40 mg DAILY IVP 06/19/19 09:00 07/19/19 08:59 06/22/19 09:37 Piperacillin Sod/ Tazobactam Sod 2.25 gm/Dextrose 55 ml @ 110 mls/hr Q8HR IVPB 06/13/19 14:00 06/23/19 13:59 06/22/19 05:28 Sevelamer Carbonate (Renvela) 1,600 mg Q6HR NG 06/14/19 12:00 09/05/19 12:59 06/22/19 11:31 Vancomycin HCl (Vanco rx to dose) 1 ea DAILY PRN MISC Per rx protocol 06/13/19 11:45 07/13/19 11:44 Ted Leyva MD June 22, 2019 12:39
--- NOTE | 2019-06-22 21:17 | Diagnostic Imaging Report ---
EXAM: XR Chest, 1 View CLINICAL HISTORY: TUBE PLCMT TECHNIQUE: Frontal view of the chest. COMPARISON: Chest x-ray 06/17/2019. FINDINGS: Lungs: Unchanged interstitial and airspace opacities within the lungs bilaterally. Pleural space: No pleural effusion. No pneumothorax. Heart: Unremarkable. No cardiomegaly. Tubes, lines and devices: Enteric tube terminates within the stomach. Endotracheal tube terminates above the level of the clavicles. Left upper extremity PICC is unchanged in position. IMPRESSION: 1. Enteric tube terminates within the stomach. 2. Unchanged interstitial and airspace opacities within the lungs bilaterally.
--- NOTE | 2019-06-22 21:27 | General Progress Note ---
Assessment/Plan Problem List: (1) Anemia ICD Codes: D64.9 - Anemia, unspecified SNOMED: 726924893 (2) Renal failure ICD Codes: N19 - Unspecified kidney failure SNOMED: 97735125 (3) Suspected COVID-19 virus infection ICD Codes: R68.89 - Other general symptoms and signs SNOMED: 730546423 (4) HTN (hypertension) ICD Codes: I10 - Essential (primary) hypertension SNOMED: 48154536 (5) CASSANDRA (acute kidney injury) ICD Codes: N17.9 - Acute kidney failure, unspecified SNOMED: 6626865, 50811260 (6) Anemia in chronic kidney disease (CKD) ICD Codes: N18.9 - Chronic kidney disease, unspecified; D63.1 - Anemia in chronic kidney disease SNOMED: 320843657 (7) Suspected COVID-19 virus infection ICD Codes: R68.89 - Other general symptoms and signs SNOMED: 061073311 Status: unchanged Assessment/Plan: diaylsis per renal worsening renal failure not improving poor prognosis reviewed chart and labs pna covid positve resp failure sepsis hyponatrmia persistent leukocytosis afebrile ams htn Subjective ROS Limited/Unobtainable: Yes Allergies: Coded Allergies: No Known Allergies (Unverified , 05/28/19) Objective Last 24 Hour Vital Signs Date Time Temp Pulse Resp B/P (MAP) Pulse Ox O2 Delivery O2 Flow Rate FiO2 06/22/19 19:27 80 28 100 Mechanical Ventilator 40 83 28 40 06/22/19 19:15 88 13 157/72 (100) 100 06/22/19 19:00 83 19 140/64 (89) 100 06/22/19 18:30 74 26 125/57 (79) 100 06/22/19 18:00 76 26 122/60 (80) 100 06/22/19 18:00 118/59 06/22/19 17:30 100 21 117/68 (84) 100 06/22/19 17:00 100 18 136/66 (89) 100 06/22/19 17:00 133/66 06/22/19 16:28 92 21 136/63 (87) 100 06/22/19 16:00 Mechanical Ventilator 06/22/19 16:00 151/64 06/22/19 16:00 87 20 151/64 (93) 100 06/22/19 16:00 81 06/22/19 16:00 40 06/22/19 15:30 86 22 139/67 (91) 100 06/22/19 15:18 90 26 100 Mechanical Ventilator 40 95 30 40 06/22/19 15:00 90 20 157/61 (93) 100 06/22/19 14:30 97.0 82 23 141/66 (91) 100 06/22/19 14:00 85 27 124/60 (81) 100 06/22/19 14:00 114/55 06/22/19 13:30 85 27 138/70 (92) 100 06/22/19 13:00 88 25 82/54 (63) 100 06/22/19 12:30 92 24 112/66 (81) 100 06/22/19 12:00 94/61 06/22/19 12:00 100 06/22/19 12:00 40 06/22/19 12:00 Mechanical Ventilator 06/22/19 12:00 91 25 94/61 (72) 100 06/22/19 11:31 Mechanical Ventilator 06/22/19 11:30 96 25 127/67 (87) 100 06/22/19 11:00 79 25 97/54 (68) 100 06/22/19 11:00 97/54 06/22/19 10:53 78 26 100 Mechanical Ventilator 40 77 26 40 06/22/19 10:30 79 24 97/49 (65) 100 06/22/19 10:00 102/53 06/22/19 10:00 80 25 102/53 (69) 100 06/22/19 09:38 112/58 06/22/19 09:30 72 25 156/58 (90) 100 06/22/19 09:00 81 21 117/57 (77) 100 06/22/19 08:30 73 20 117/61 (79) 100 06/22/19 08:00 72 25 100/56 (71) 99 06/22/19 08:00 Mechanical Ventilator 06/22/19 08:00 40 06/22/19 08:00 78 12 90/49 (63) 99 06/22/19 08:00 100/56 06/22/19 08:00 74 06/22/19 07:30 75 26 99/52 (68) 100 06/22/19 07:13 77 28 100 Mechanical Ventilator 40 74 28 40 06/22/19 07:00 28 Mechanical Ventilator 40 06/22/19 07:00 90/49 06/22/19 07:00 78 12 90/49 (63) 99 06/22/19 06:15 104/54 06/22/19 06:00 75 13 99/50 (66) 100 06/22/19 06:00 27 Mechanical Ventilator 40 06/22/19 06:00 99/50 06/22/19 05:30 81 23 111/68 (82) 100 06/22/19 05:27 98.4 06/22/19 05:00 91 26 119/67 (84) 100 06/22/19 05:00 28 Mechanical Ventilator 40 06/22/19 05:00 119/67 06/22/19 04:30 91 25 127/55 (79) 99 06/22/19 04:12 28 Mechanical Ventilator 40 06/22/19 04:00 98.6 76 24 114/57 (76) 100 06/22/19 04:00 40 06/22/19 04:00 72 06/22/19 04:00 114/57 06/22/19 04:00 Mechanical Ventilator 06/22/19 03:30 71 26 124/55 (78) 100 06/22/19 03:25 72 26 100 Mechanical Ventilator 40 71 26 40 06/22/19 03:00 22 Mechanical Ventilator 40 06/22/19 03:00 129/68 06/22/19 03:00 68 25 129/64 (85) 100 06/22/19 02:30 69 26 127/57 (80) 100 06/22/19 02:00 76 19 124/60 (81) 100 06/22/19 02:00 20 Mechanical Ventilator 40 06/22/19 02:00 120/54 06/22/19 01:30 75 26 109/51 (70) 100 06/22/19 01:00 74 21 113/53 (73) 100 06/22/19 01:00 21 Mechanical Ventilator 40 06/22/19 01:00 113/53 06/22/19 00:30 70 26 97/51 (66) 100 06/22/19 00:00 98.4 79 23 124/66 (85) 100 06/22/19 00:00 71 06/22/19 00:00 26 Mechanical Ventilator 40 06/22/19 00:00 124/66 06/22/19 00:00 Mechanical Ventilator 06/22/19 00:00 40 06/21/19 23:59 68 27 100 Mechanical Ventilator 40 74 27 40 06/21/19 23:30 75 26 109/51 (70) 100 06/21/19 23:00 74 26 112/51 (71) 100 06/21/19 23:00 26 Mechanical Ventilator 40 06/21/19 23:00 112/51 06/21/19 22:30 71 26 101/50 (67) 100 06/21/19 22:00 74 25 98/47 (64) 100 06/21/19 22:00 27 Mechanical Ventilator 40 06/21/19 22:00 98/47 06/21/19 21:30 98.6 68 25 100/49 (66) 100 Intake and Output 06/21/19 06/22/19 19:00 07:00 Intake Total 1762.07 ml 1202.84 ml Output Total 50 ml 10 ml Balance 1712.07 ml 1192.84 ml Free Water 600 ml 240 ml IV Total 802.07 ml 587.84 ml Tube Feeding 360 ml 375 ml Output Urine Total 50 ml 10 ml Laboratory Tests 06/22/19 06:13: White Blood Count 13.0H, Red Blood Count 2.73L, Hemoglobin 8.2L, Hematocrit 25.5L, Mean Corpuscular Volume 94, Mean Corpuscular Hemoglobin 30.0, Mean Corpuscular Hemoglobin Concent 32.1, Red Cell Distribution Width 18.7H, Platelet Count 264, Mean Platelet Volume 7.4, Neutrophils (%) (Auto) , Lymphocytes (%) (Auto) , Monocytes (%) (Auto) , Eosinophils (%) (Auto) , Basophils (%) (Auto) , Differential Total Cells Counted 100, Neutrophils % ( Manual) 88H, Lymphocytes % (Manual) 6L, Monocytes % (Manual) 5, Eosinophils % ( Manual) 0, Basophils % (Manual) 0, Band Neutrophils 1, Platelet Estimate Adequate, Platelet Morphology Normal, Anisocytosis 1+, Sodium Level 127L, Potassium Level 3.7, Chloride Level 88L, Carbon Dioxide Level 24, Blood Urea Nitrogen 64H, Creatinine 8.2H, Estimat Glomerular Filtration Rate 6.6, Glucose Level 212H, Calcium Level 8.4L, Iron Level 21L, Total Iron Binding Capacity 101L , Percent Iron Saturation 21, Unsaturated Iron Binding 80L, Ferritin 414H, Total Bilirubin 0.4, Aspartate Amino Transf (AST/SGOT) 17, Alanine Aminotransferase (ALT/SGPT) 12, Alkaline Phosphatase 71, Total Protein 7.6, Albumin 1.6L, Globulin 6.0, Albumin/Globulin Ratio 0.3L Height (Feet): 6 Height (Inches): 1.00 Weight (Pounds): 245 General Appearance: lethargic Karishma Mulligan MD June 22, 2019 21:27
[2019-06-22] MEDS: Dyna-Hex 2% Top Sol 2oz TOPIC SCH (22:23)
--- NOTE | 2019-06-22 23:26 | Emergency Room Report ---
Physical Exam Vital Signs Date Time Temp Pulse Resp B/P (MAP) Pulse Ox O2 Delivery O2 Flow Rate FiO2 06/18/19 07:00 74 31 117/67 (84) 100 06/18/19 07:00 Mechanical Ventilator 40 06/18/19 08:00 99.1 06/19/19 13:19 70.0 Intubation Intubation : Consent: Emergent Intubation Method: orotracheal Tube Size (cm): 7.5 Breath Sounds after Intubation: equal Intubation Complications: no complications Post Intubation Xray: Yes Progress/Xray Impression: ETT in good position. No pneumothorax. Attempts: One Patient Tolerated: Well Complications: None Progress I was called by the ICU nurse to evaluate the patient for complication from his endotracheal tube. He is not getting volume and there appear to be a leak. Per respiratory therapist, when she inflate the balloon he is getting volume but shortly afterward there appear to be a leak. Because of that, I reintubated the patient. I deflate the balloon and insert a bougie through the old endotracheal tube. I remove the O endotracheal tube and placed a new 7.5 endotracheal tube over the bougie. It was placed at 24 cm the lip. Bougie was removed and balloon inflated. Patient tolerated surgery without any problem. There is good tidal volume now. X-ray done to showed tubes in good position. No pneumothorax. Patient still have bilateral infiltrates. Medical Decision Making Diagnostic Impression: Primary Impression: Respiratory failure requiring intubation Additional Impressions: Pneumonia due to COVID-19 virus Sepsis due to severe acute respiratory syndrome coronavirus 2 (SARS-CoV-2) Other air leak Last Vital Signs Date Time Temp Pulse Resp B/P (MAP) Pulse Ox O2 Delivery O2 Flow Rate FiO2 06/22/19 22:37 102 26 100 Mechanical Ventilator 40 99 26 40 06/22/19 22:30 173/72 (105) 06/22/19 19:30 98.7 06/21/19 18:18 70.0 Disposition: ADMITTED INPATIENT Condition: Critical Referrals: Karishma Mulligan MD (PCP) Albert Sanders MD June 22, 2019 23:26
--- NOTE | 2019-06-22 23:27 | Pulmonolgy Critical Care Note ---
Critical Care - Asmt/Plan Assessment/Plan: Pulmonary CCM Progress Note HPI: Patient is a 68 year old man, custodial resident, admitted c/o shortness of breath, cough, noted to have Covid 19 Pneumonia, Respiratory Failure S/p intubation, remains on pressors, CXR improving Septic Shock, pressors decreasing Preserved EF FIO2 40%, adequate O2 sats, remains on ACVC HD tolerated Hyponatremia stable Anemia stable Seen earlier ID following On HD per Renal Past Medical History: COPD, CKD, Hypertension, Anemia Hypotension requiring pressors, in ICU Persistently elevated WCC Allergies: No Known Allergies Improving Pulmonary Status on HD Physical Exam Vital Signs Noted Sedated on ventilator WDWN, no distress HEENT: NCAT,moist mm Chest: Occasional rhonchi Heart: HS1, HS2, RRR Abdomen: SNTND, no masses Extremities: Well perfused, no edema [employer]: No focal signs, no seizures, sedated Impression: COVID-19 virus infection Pneumonia Respiratory failure on ventilator Volume overload improving - on HD Hypotension on pressors Cardiomegaly Lymphopenia Elevated AST COPD Chronic Kidney Disease - HD H/o Hypertension Worsening anemia Plan: Antibiotics per ID HD Pressors PRN ACVC - wean as tolerated once pressors reduced/off ABG PRN [employer] Medications 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 Monitor cultures/viral studies PPX Hemodialysis per Renal Psychiatry following [facility] - [facility] requested for when available, [facility] - not available as yet Laboratory Tests Noted: CXR: Hypoventilatory exam, interstitial changes, cardiomegaly, improving infiltrates Subjective ROS Limited/Unobtainable: No Constitutional: Denies: fever Respiratory: Reports: dry cough, shortness of breath Gastrointestinal/Abdominal: Reports: diarrhea, other - colace was stopped Psychiatric: Reports: other - refuses labs Allergies: Coded Allergies: No Known Allergies (Unverified , 05/28/19) All Systems: reviewed and negative except above Labs noted Critical Care - Objective Last 24 Hour Vital Signs Date Time Temp Pulse Resp B/P (MAP) Pulse Ox O2 Delivery O2 Flow Rate FiO2 06/22/19 22:37 102 26 100 Mechanical Ventilator 40 99 26 40 06/22/19 22:30 142 29 173/72 (105) 100 06/22/19 22:27 23 151/78 Mechanical Ventilator 40 06/22/19 22:00 112 22 138/69 (92) 98 06/22/19 22:00 18 151/78 Mechanical Ventilator 40 06/22/19 22:00 151/78 06/22/19 21:30 96 24 147/76 (99) 97 06/22/19 21:00 24 137/72 Mechanical Ventilator 40 06/22/19 21:00 137/72 06/22/19 21:00 87 26 124/68 (86) 96 06/22/19 20:30 91 16 143/68 (93) 98 06/22/19 20:00 87 14 141/79 (99) 98 06/22/19 20:00 Mechanical Ventilator 06/22/19 20:00 40 06/22/19 20:00 18 155/70 Mechanical Ventilator 40 06/22/19 20:00 155/70 06/22/19 20:00 85 06/22/19 19:30 98.7 113 22 172/78 (109) 99 06/22/19 19:27 80 28 100 Mechanical Ventilator 40 83 28 40 06/22/19 19:15 88 13 157/72 (100) 100 06/22/19 19:00 83 19 140/64 (89) 100 06/22/19 19:00 14 122/76 Mechanical Ventilator 40 06/22/19 19:00 157/72 06/22/19 18:30 74 26 125/57 (79) 100 06/22/19 18:00 76 26 122/60 (80) 100 06/22/19 18:00 118/59 06/22/19 17:30 100 21 117/68 (84) 100 06/22/19 17:00 100 18 136/66 (89) 100 06/22/19 17:00 133/66 06/22/19 16:28 92 21 136/63 (87) 100 06/22/19 16:00 Mechanical Ventilator 06/22/19 16:00 151/64 06/22/19 16:00 87 20 151/64 (93) 100 06/22/19 16:00 81 06/22/19 16:00 40 06/22/19 15:30 86 22 139/67 (91) 100 06/22/19 15:18 90 26 100 Mechanical Ventilator 40 95 30 40 06/22/19 15:00 90 20 157/61 (93) 100 06/22/19 14:30 97.0 82 23 141/66 (91) 100 06/22/19 14:00 85 27 124/60 (81) 100 06/22/19 14:00 114/55 06/22/19 13:30 85 27 138/70 (92) 100 06/22/19 13:00 88 25 82/54 (63) 100 06/22/19 12:30 92 24 112/66 (81) 100 06/22/19 12:00 94/61 06/22/19 12:00 100 06/22/19 12:00 40 06/22/19 12:00 Mechanical Ventilator 06/22/19 12:00 91 25 94/61 (72) 100 06/22/19 11:31 Mechanical Ventilator 06/22/19 11:30 96 25 127/67 (87) 100 06/22/19 11:00 79 25 97/54 (68) 100 06/22/19 11:00 97/54 06/22/19 10:53 78 26 100 Mechanical Ventilator 40 77 26 40 06/22/19 10:30 79 24 97/49 (65) 100 06/22/19 10:00 102/53 06/22/19 10:00 80 25 102/53 (69) 100 06/22/19 09:38 112/58 06/22/19 09:30 72 25 156/58 (90) 100 06/22/19 09:00 81 21 117/57 (77) 100 06/22/19 08:30 73 20 117/61 (79) 100 06/22/19 08:00 72 25 100/56 (71) 99 06/22/19 08:00 Mechanical Ventilator 06/22/19 08:00 40 06/22/19 08:00 78 12 90/49 (63) 99 06/22/19 08:00 100/56 06/22/19 08:00 74 06/22/19 07:30 75 26 99/52 (68) 100 06/22/19 07:13 77 28 100 Mechanical Ventilator 40 74 28 40 06/22/19 07:00 28 Mechanical Ventilator 40 06/22/19 07:00 90/49 06/22/19 07:00 78 12 90/49 (63) 99 06/22/19 06:15 104/54 06/22/19 06:00 75 13 99/50 (66) 100 06/22/19 06:00 27 Mechanical Ventilator 40 06/22/19 06:00 99/50 06/22/19 05:30 81 23 111/68 (82) 100 06/22/19 05:27 98.4 06/22/19 05:00 91 26 119/67 (84) 100 06/22/19 05:00 28 Mechanical Ventilator 40 06/22/19 05:00 119/67 06/22/19 04:30 91 25 127/55 (79) 99 06/22/19 04:12 28 Mechanical Ventilator 40 06/22/19 04:00 98.6 76 24 114/57 (76) 100 06/22/19 04:00 40 06/22/19 04:00 72 06/22/19 04:00 114/57 06/22/19 04:00 Mechanical Ventilator 06/22/19 03:30 71 26 124/55 (78) 100 06/22/19 03:25 72 26 100 Mechanical Ventilator 40 71 26 40 06/22/19 03:00 22 Mechanical Ventilator 40 06/22/19 03:00 129/68 06/22/19 03:00 68 25 129/64 (85) 100 06/22/19 02:30 69 26 127/57 (80) 100 06/22/19 02:00 76 19 124/60 (81) 100 06/22/19 02:00 20 Mechanical Ventilator 40 06/22/19 02:00 120/54 06/22/19 01:30 75 26 109/51 (70) 100 06/22/19 01:00 74 21 113/53 (73) 100 06/22/19 01:00 21 Mechanical Ventilator 40 06/22/19 01:00 113/53 06/22/19 00:30 70 26 97/51 (66) 100 06/22/19 00:00 98.4 79 23 124/66 (85) 100 06/22/19 00:00 71 06/22/19 00:00 26 Mechanical Ventilator 40 06/22/19 00:00 124/66 06/22/19 00:00 Mechanical Ventilator 06/22/19 00:00 40 06/21/19 23:59 68 27 100 Mechanical Ventilator 40 74 27 40 06/21/19 23:30 75 26 109/51 (70) 100 Micro: Microbiology Date/Time Source Procedure Growth Status 06/20/19 13:00 Nasopharynx Coronavirus COVID-19 PCR ([facility]) - Final Complete Accucheck: 200 Critical Care - Subjective ROS Limited/Unobtainable: No Condition: improving FI02: 40 Vent Support Breath Rate: 26 Vent Support Mode: AC Vent Tidal Volume: 500 Sputum Amount: Moderate PEEP: 8.0 PIP: 25 Tube Feeding Amount: 35 I&O: Intake and Output 06/21/19 06/22/19 19:00 07:00 Intake Total 1762.07 ml 1202.84 ml Output Total 50 ml 10 ml Balance 1712.07 ml 1192.84 ml Free Water 600 ml 240 ml IV Total 802.07 ml 587.84 ml Tube Feeding 360 ml 375 ml Output Urine Total 50 ml 10 ml ET-Tube: 7.5 ET Position: 24 Arturo Mckeon MD June 22, 2019 23:27
--- NOTE | 2019-06-22 23:30 | Diagnostic Imaging Report ---
EXAM: XR Chest, 1 View CLINICAL HISTORY: TUBE PLCMT TECHNIQUE: Frontal view of the chest. COMPARISON: No relevant prior studies available. FINDINGS: Lungs: Unchanged patchy airspace opacities bilaterally. Pleural space: No pleural effusion. No pneumothorax. Heart: Unremarkable. No cardiomegaly. Tubes, lines and devices: Endotracheal tube has been advanced terminating 5.5 cm from the re. Redemonstrated left upper extremity PICC and enteric tubes. IMPRESSION: 1. Endotracheal tube has been advanced terminating 5.5 cm from the re. 2. Unchanged patchy airspace opacities bilaterally.
[2019-06-23] VITALS (44 sets, daily range): BP systolic 95–152; BP diastolic 50–91
[2019-06-23] MEDS: Albuterol 90mcg Inhaler 8gm INH SCH ×6 (03:33→23:50)
[2019-06-23 05:23] LABS: HEMOGLOBIN 8.1 G/DL (14.2-18.0); MEAN CORPUSCULAR VOLUME 94 FL (80-99); PLATELET COUNT 251 K/UL (150-450); RED BLOOD COUNT 2.67 M/UL (4.70-6.10); RED CELL DISTRIBUTION WIDTH 18.6 % (11.6-14.8); WHITE BLOOD COUNT 11.2 K/UL (4.8-10.8)
[2019-06-23 06:02] LABS: ALANINE AMINOTRANSFERASE 10 U/L (12-78); ALBUMIN 1.8 G/DL (3.4-5.0); ALBUMIN/GLOBULIN RATIO 0.3 (1.0-2.7); ALKALINE PHOSPHATASE 84 U/L (46-116); ANION GAP 14 mmol/L (5-15); ASPARTATE AMINO TRANSFERASE 20 U/L (15-37); BILIRUBIN,TOTAL 0.4 MG/DL (0.2-1.0); BLOOD UREA NITROGEN 50 mg/dL (7-18); CALCIUM 8.9 MG/DL (8.5-10.1); CARBON DIOXIDE 27 MMOL/L (21-32); CHLORIDE 92 MMOL/L (98-107); CREATININE 6.4 MG/DL (0.55-1.30); PHOSPHORUS 5.5 MG/DL (2.5-4.9); POTASSIUM 3.5 MMOL/L (3.5-5.1); SODIUM 133 MMOL/L (136-145)
[2019-06-23] MEDS: NovoLOG Insulin Flexpen SUBQ SCH ×4 (06:33→23:51)
[2019-06-23] MEDS: Renvela 800mg Pkt NG SCH ×4 (06:34→23:50)
[2019-06-23] MEDS: Piperacillin/Tazobactam 2.25 GM in D5W 55 ML IVPB SCH (06:34)
[2019-06-23] MEDS: Docusate 100mg/10ml Liq NG SCH ×3 (08:54→17:10)
[2019-06-23] MEDS: Enoxaparin 30mg Inj SUBQ SCH (08:54)
[2019-06-23] MEDS: Midodrine 10mg tab NG SCH ×3 (08:54→17:10)
[2019-06-23] MEDS: Pantoprazole Inj IVP SCH (08:54)
[2019-06-23] MEDS: fentaNYL Citrate 2,500 MCG in NS 200 ML IV SCH (08:57)
[2019-06-23] MEDS: Norepinephrine Bitartrate 16 MG in D5W 500ml 550 ML IV SCH (09:45)
--- NOTE | 2019-06-23 09:55 | General Progress Note ---
Assessment/Plan Status: unchanged Assessment/Plan: 1. Diabetes. 2. Hypertension. 3. Coronary artery disease. 4. COPD. 5. Psychiatric disorder with schizophrenia. 6. History of hepatitis C. 7. HLP. 8. Chronic kidney disease, now with acute renal failure. 9. Anemia. 10. Hypothyroidism. 11. Spinal stenosis. 12. Constipation. 13. GERD. HD per nephrology tolerating TF recent labs and notes reviewed TF nephro at 35 cc and tolerated stable H&H will fu Subjective ROS Limited/Unobtainable: No Allergies: Coded Allergies: No Known Allergies (Unverified , 05/28/19) Objective Last 24 Hour Vital Signs Date Time Temp Pulse Resp B/P (MAP) Pulse Ox O2 Delivery O2 Flow Rate FiO2 06/23/19 09:52 30 06/23/19 08:57 28 106/57 Mechanical Ventilator 40 06/23/19 07:14 85 28 Mechanical Ventilator 40 40 06/23/19 06:49 86 26 06/23/19 06:30 82 26 106/57 (73) 100 06/23/19 06:00 80 26 99/56 (70) 100 06/23/19 06:00 106/57 06/23/19 05:30 84 25 95/54 (68) 100 06/23/19 05:00 26 116/62 Mechanical Ventilator 40 06/23/19 05:00 116/62 06/23/19 05:00 87 26 110/66 (81) 100 06/23/19 04:30 116 23 116/62 (80) 97 06/23/19 04:00 40 06/23/19 04:00 86 06/23/19 04:00 98.7 86 26 129/65 (86) 100 06/23/19 04:00 23 119/57 Mechanical Ventilator 40 06/23/19 04:00 119/57 06/23/19 04:00 Mechanical Ventilator 06/23/19 03:33 94 27 100 Mechanical Ventilator 40 97 27 40 06/23/19 03:30 95 8 150/79 (102) 100 06/23/19 03:00 12 154/96 Mechanical Ventilator 40 06/23/19 03:00 154/96 06/23/19 03:00 98 11 152/87 (108) 93 06/23/19 02:30 91 13 150/73 (98) 97 06/23/19 02:00 89 5 143/91 (108) 99 06/23/19 02:00 10 150/73 Mechanical Ventilator 40 06/23/19 02:00 150/73 06/23/19 01:30 86 14 134/82 (99) 100 06/23/19 01:00 23 104/56 Mechanical Ventilator 40 06/23/19 01:00 104/56 06/23/19 01:00 87 20 120/68 (85) 100 06/23/19 00:30 93 17 112/66 (81) 95 06/23/19 00:00 89 06/23/19 00:00 98.2 91 0 122/65 (84) 92 06/23/19 00:00 19 120/61 Mechanical Ventilator 40 06/23/19 00:00 120/61 06/23/19 00:00 Mechanical Ventilator 06/23/19 00:00 40 06/22/19 23:30 91 25 138/70 (92) 100 06/22/19 23:00 98 20 155/92 (113) 100 06/22/19 23:00 21 175/75 Mechanical Ventilator 40 06/22/19 23:00 175/75 06/22/19 22:37 102 26 100 Mechanical Ventilator 40 99 26 40 06/22/19 22:30 142 29 173/72 (105) 100 06/22/19 22:27 23 151/78 Mechanical Ventilator 40 06/22/19 22:00 112 22 138/69 (92) 98 06/22/19 22:00 18 151/78 Mechanical Ventilator 40 06/22/19 22:00 151/78 06/22/19 21:30 96 24 147/76 (99) 97 06/22/19 21:00 24 137/72 Mechanical Ventilator 40 06/22/19 21:00 137/72 06/22/19 21:00 87 26 124/68 (86) 96 06/22/19 20:30 91 16 143/68 (93) 98 06/22/19 20:00 87 14 141/79 (99) 98 06/22/19 20:00 Mechanical Ventilator 06/22/19 20:00 40 06/22/19 20:00 18 155/70 Mechanical Ventilator 40 06/22/19 20:00 155/70 06/22/19 20:00 85 06/22/19 19:30 98.7 113 22 172/78 (109) 99 06/22/19 19:27 80 28 100 Mechanical Ventilator 40 83 28 40 06/22/19 19:15 88 13 157/72 (100) 100 06/22/19 19:00 83 19 140/64 (89) 100 06/22/19 19:00 14 122/76 Mechanical Ventilator 40 06/22/19 19:00 157/72 06/22/19 18:30 74 26 125/57 (79) 100 06/22/19 18:00 76 26 122/60 (80) 100 06/22/19 18:00 118/59 06/22/19 17:30 100 21 117/68 (84) 100 06/22/19 17:00 100 18 136/66 (89) 100 06/22/19 17:00 133/66 06/22/19 16:28 92 21 136/63 (87) 100 06/22/19 16:00 Mechanical Ventilator 06/22/19 16:00 151/64 06/22/19 16:00 87 20 151/64 (93) 100 06/22/19 16:00 81 06/22/19 16:00 40 06/22/19 15:30 86 22 139/67 (91) 100 06/22/19 15:18 90 26 100 Mechanical Ventilator 40 95 30 40 06/22/19 15:00 90 20 157/61 (93) 100 06/22/19 14:30 97.0 82 23 141/66 (91) 100 06/22/19 14:00 85 27 124/60 (81) 100 06/22/19 14:00 114/55 06/22/19 13:30 85 27 138/70 (92) 100 06/22/19 13:00 88 25 82/54 (63) 100 06/22/19 12:30 92 24 112/66 (81) 100 06/22/19 12:00 94/61 06/22/19 12:00 100 06/22/19 12:00 40 06/22/19 12:00 Mechanical Ventilator 06/22/19 12:00 91 25 94/61 (72) 100 06/22/19 11:31 Mechanical Ventilator 06/22/19 11:30 96 25 127/67 (87) 100 06/22/19 11:00 79 25 97/54 (68) 100 06/22/19 11:00 97/54 06/22/19 10:53 78 26 100 Mechanical Ventilator 40 77 26 40 06/22/19 10:30 79 24 97/49 (65) 100 06/22/19 10:00 102/53 06/22/19 10:00 80 25 102/53 (69) 100 Intake and Output 06/22/19 06/23/19 19:00 07:00 Intake Total 1114.90 ml 871.44 ml Output Total 2022 ml 10 ml Balance -907.10 ml 861.44 ml IV Total 634.90 ml 486.44 ml Tube Feeding 420 ml 385 ml Other 60 ml Output Urine Total 22 ml 10 ml Hemodialysis UF 2000 ml # Bowel Movements 1 1 Laboratory Tests 06/23/19 04:13: White Blood Count 11.2H, Red Blood Count 2.67L, Hemoglobin 8.1L, Hematocrit 25.0L, Mean Corpuscular Volume 94, Mean Corpuscular Hemoglobin 30.2, Mean Corpuscular Hemoglobin Concent 32.3, Red Cell Distribution Width 18.6H, Platelet Count 251, Mean Platelet Volume 7.8, Neutrophils (%) (Auto) , Lymphocytes (%) (Auto) , Monocytes (%) (Auto) , Eosinophils (%) (Auto) , Basophils (%) (Auto) , Differential Total Cells Counted 100, Neutrophils % ( Manual) 91H, Lymphocytes % (Manual) 3L, Monocytes % (Manual) 4, Eosinophils % ( Manual) 0, Basophils % (Manual) 1, Metamyelocytes % 1H, Band Neutrophils 0, Platelet Estimate Adequate, Platelet Morphology Normal, Hypochromasia 2+, Anisocytosis 2+, Sodium Level 133L, Potassium Level 3.5, Chloride Level 92L, Carbon Dioxide Level 27, Anion Gap 14, Blood Urea Nitrogen 50H, Creatinine 6.4H , Estimat Glomerular Filtration Rate 8.8, Glucose Level 210H, Uric Acid 3.9, Calcium Level 8.9, Phosphorus Level 5.5H, Magnesium Level 2.3, Total Bilirubin 0.4, Aspartate Amino Transf (AST/SGOT) 20, Alanine Aminotransferase (ALT/SGPT) 10L, Alkaline Phosphatase 84, Total Protein 7.7, Albumin 1.8L, Globulin 5.9, Albumin/Globulin Ratio 0.3L 06/23/19 08:27: Arterial Blood pH 7.383, Arterial Blood Partial Pressure CO2 40.4, Arterial Blood Partial Pressure O2 112.3H, Arterial Blood HCO3 23.5, Arterial Blood Oxygen Saturation 97.7, Arterial Blood Base Excess -1.4, Kosta Test Positive Height (Feet): 6 Height (Inches): 1.00 Weight (Pounds): 240 General Appearance: no apparent distress EENT: normal ENT inspection Neck: supple Cardiovascular: normal rate Respiratory/Chest: decreased breath sounds Abdomen: normal bowel sounds, non tender, soft Extremities: non-tender Marito Ramires MD June 23, 2019 09:55
--- NOTE | 2019-06-23 10:18 | Infectious Diseases Prog Note ---
Assessment/Plan Assessment/Plan IMPRESSION: 1. COVID19 pneumonia Positive: 05/27, 05/31 , 06/05, 06/09 ,06/17, 06/19 2. MRSA carrier. 3. Chronic kidney disease , end-stage renal disease. 4. COPD. 5. Hypertension. 6. Anemia. 7. Hypothyroidism. 8. Hyperlipidemia. 9. Major depression. 10. Leukocytosis 11. Hypotension 12. Hepatitis C 13. Hyperuricemia 14. Diarrhea 15. septic shock 16. Leukocytosis improving RECOMMENDATIONS: Discontinue Zosyn Repeat CXR shows slight improvement Finished hydroxychloroquine. Will f/u COVID19 test Subjective ROS Limited/Unobtainable: Yes Constitutional: Denies: fever Allergies: Coded Allergies: No Known Allergies (Unverified , 05/28/19) Objective Vital Signs Last 24 Hour Vital Signs Date Time Temp Pulse Resp B/P (MAP) Pulse Ox O2 Delivery O2 Flow Rate FiO2 06/23/19 09:52 30 06/23/19 08:57 28 106/57 Mechanical Ventilator 40 06/23/19 07:14 85 28 Mechanical Ventilator 40 40 06/23/19 06:49 86 26 06/23/19 06:30 82 26 106/57 (73) 100 06/23/19 06:00 80 26 99/56 (70) 100 06/23/19 06:00 106/57 06/23/19 05:30 84 25 95/54 (68) 100 06/23/19 05:00 26 116/62 Mechanical Ventilator 40 06/23/19 05:00 116/62 06/23/19 05:00 87 26 110/66 (81) 100 06/23/19 04:30 116 23 116/62 (80) 97 06/23/19 04:00 40 06/23/19 04:00 86 06/23/19 04:00 98.7 86 26 129/65 (86) 100 06/23/19 04:00 23 119/57 Mechanical Ventilator 40 06/23/19 04:00 119/57 06/23/19 04:00 Mechanical Ventilator 06/23/19 03:33 94 27 100 Mechanical Ventilator 40 97 27 40 06/23/19 03:30 95 8 150/79 (102) 100 06/23/19 03:00 12 154/96 Mechanical Ventilator 40 06/23/19 03:00 154/96 06/23/19 03:00 98 11 152/87 (108) 93 06/23/19 02:30 91 13 150/73 (98) 97 06/23/19 02:00 89 5 143/91 (108) 99 06/23/19 02:00 10 150/73 Mechanical Ventilator 40 06/23/19 02:00 150/73 06/23/19 01:30 86 14 134/82 (99) 100 06/23/19 01:00 23 104/56 Mechanical Ventilator 40 06/23/19 01:00 104/56 06/23/19 01:00 87 20 120/68 (85) 100 06/23/19 00:30 93 17 112/66 (81) 95 06/23/19 00:00 89 06/23/19 00:00 98.2 91 0 122/65 (84) 92 06/23/19 00:00 19 120/61 Mechanical Ventilator 40 06/23/19 00:00 120/61 06/23/19 00:00 Mechanical Ventilator 06/23/19 00:00 40 06/22/19 23:30 91 25 138/70 (92) 100 06/22/19 23:00 98 20 155/92 (113) 100 06/22/19 23:00 21 175/75 Mechanical Ventilator 40 06/22/19 23:00 175/75 06/22/19 22:37 102 26 100 Mechanical Ventilator 40 99 26 40 06/22/19 22:30 142 29 173/72 (105) 100 06/22/19 22:27 23 151/78 Mechanical Ventilator 40 06/22/19 22:00 112 22 138/69 (92) 98 06/22/19 22:00 18 151/78 Mechanical Ventilator 40 06/22/19 22:00 151/78 06/22/19 21:30 96 24 147/76 (99) 97 06/22/19 21:00 24 137/72 Mechanical Ventilator 40 06/22/19 21:00 137/72 06/22/19 21:00 87 26 124/68 (86) 96 06/22/19 20:30 91 16 143/68 (93) 98 06/22/19 20:00 87 14 141/79 (99) 98 06/22/19 20:00 Mechanical Ventilator 06/22/19 20:00 40 06/22/19 20:00 18 155/70 Mechanical Ventilator 40 06/22/19 20:00 155/70 06/22/19 20:00 85 06/22/19 19:30 98.7 113 22 172/78 (109) 99 06/22/19 19:27 80 28 100 Mechanical Ventilator 40 83 28 40 06/22/19 19:15 88 13 157/72 (100) 100 06/22/19 19:00 83 19 140/64 (89) 100 06/22/19 19:00 14 122/76 Mechanical Ventilator 40 06/22/19 19:00 157/72 06/22/19 18:30 74 26 125/57 (79) 100 06/22/19 18:00 76 26 122/60 (80) 100 06/22/19 18:00 118/59 06/22/19 17:30 100 21 117/68 (84) 100 06/22/19 17:00 100 18 136/66 (89) 100 06/22/19 17:00 133/66 06/22/19 16:28 92 21 136/63 (87) 100 06/22/19 16:00 Mechanical Ventilator 06/22/19 16:00 151/64 06/22/19 16:00 87 20 151/64 (93) 100 06/22/19 16:00 81 06/22/19 16:00 40 06/22/19 15:30 86 22 139/67 (91) 100 06/22/19 15:18 90 26 100 Mechanical Ventilator 40 95 30 40 06/22/19 15:00 90 20 157/61 (93) 100 06/22/19 14:30 97.0 82 23 141/66 (91) 100 06/22/19 14:00 85 27 124/60 (81) 100 06/22/19 14:00 114/55 06/22/19 13:30 85 27 138/70 (92) 100 06/22/19 13:00 88 25 82/54 (63) 100 06/22/19 12:30 92 24 112/66 (81) 100 06/22/19 12:00 94/61 06/22/19 12:00 100 06/22/19 12:00 40 06/22/19 12:00 Mechanical Ventilator 06/22/19 12:00 91 25 94/61 (72) 100 06/22/19 11:31 Mechanical Ventilator 06/22/19 11:30 96 25 127/67 (87) 100 06/22/19 11:00 79 25 97/54 (68) 100 06/22/19 11:00 97/54 06/22/19 10:53 78 26 100 Mechanical Ventilator 40 77 26 40 06/22/19 10:30 79 24 97/49 (65) 100 Height (Feet): 6 Height (Inches): 1.00 Weight (Pounds): 240 HEENT: other - orally intubated Respiratory/Chest: other - on ventilator Cardiovascular: normal rate, other - subclavian central line, Femoral HD line Abdomen: other - NG tube Extremities: other - edema Neurologic/Psychiatric: other - sedated Microbiology Date/Time Source Procedure Growth Status 06/20/19 13:00 Nasopharynx Coronavirus COVID-19 PCR ([facility]) - Final Complete Laboratory Tests Test 06/23/19 04:13 06/23/19 08:27 White Blood Count 11.2 K/UL (4.8-10.8) H Red Blood Count 2.67 M/UL (4.70-6.10) L Hemoglobin 8.1 G/DL (14.2-18.0) L Hematocrit 25.0 % (42.0-52.0) L Mean Corpuscular Volume 94 FL (80-99) Mean Corpuscular Hemoglobin 30.2 PG (27.0-31.0) Mean Corpuscular Hemoglobin Concent 32.3 G/DL (32.0-36.0) Red Cell Distribution Width 18.6 % (11.6-14.8) H Platelet Count 251 K/UL (150-450) Mean Platelet Volume 7.8 FL (6.5-10.1) Neutrophils (%) (Auto) % (45.0-75.0) Lymphocytes (%) (Auto) % (20.0-45.0) Monocytes (%) (Auto) % (1.0-10.0) Eosinophils (%) (Auto) % (0.0-3.0) Basophils (%) (Auto) % (0.0-2.0) Differential Total Cells Counted 100 Neutrophils % (Manual) 91 % (45-75) H Lymphocytes % (Manual) 3 % (20-45) L Monocytes % (Manual) 4 % (1-10) Eosinophils % (Manual) 0 % (0-3) Basophils % (Manual) 1 % (0-2) Metamyelocytes % 1 % (0-0) H Band Neutrophils 0 % (0-8) Platelet Estimate Adequate Platelet Morphology Normal Hypochromasia 2+ Anisocytosis 2+ Sodium Level 133 MMOL/L (136-145) L Potassium Level 3.5 MMOL/L (3.5-5.1) Chloride Level 92 MMOL/L (98-107) L Carbon Dioxide Level 27 MMOL/L (21-32) Anion Gap 14 mmol/L (5-15) Blood Urea Nitrogen 50 mg/dL (7-18) H Creatinine 6.4 MG/DL (0.55-1.30) H Estimat Glomerular Filtration Rate 8.8 mL/min (>60) Glucose Level 210 MG/DL (74-106) H Uric Acid 3.9 MG/DL (2.6-7.2) Calcium Level 8.9 MG/DL (8.5-10.1) Phosphorus Level 5.5 MG/DL (2.5-4.9) H Magnesium Level 2.3 MG/DL (1.8-2.4) Total Bilirubin 0.4 MG/DL (0.2-1.0) Aspartate Amino Transf (AST/SGOT) 20 U/L (15-37) Alanine Aminotransferase (ALT/SGPT) 10 U/L (12-78) L Alkaline Phosphatase 84 U/L (46-116) Total Protein 7.7 G/DL (6.4-8.2) Albumin 1.8 G/DL (3.4-5.0) L Globulin 5.9 g/dL Albumin/Globulin Ratio 0.3 (1.0-2.7) L Arterial Blood pH 7.383 (7.350-7.450) Arterial Blood Partial Pressure CO2 40.4 mmHg (35.0-45.0) Arterial Blood Partial Pressure O2 112.3 mmHg (75.0-100.0) H Arterial Blood HCO3 23.5 mmol/L (22.0-26.0) Arterial Blood Oxygen Saturation 97.7 % (95-100) Arterial Blood Base Excess -1.4 (-2-2) Kosta Test Positive Current Medications Medications (Trade) Dose Ordered Sig/Anthony Route PRN Reason Start Time Stop Time Status Last Admin Dose Admin Acetaminophen (Tylenol) 650 mg Q4H PRN NG Temp >100.5 06/13/19 11:00 07/13/19 10:59 06/20/19 17:38 Albuterol Sulfate (Proventil MDI) 2 puff Q4HRT INH 06/06/19 23:00 08/30/19 18:59 06/23/19 09:53 Chlorhexidine Gluconate (Michelle-Hex 2%) 1 applic DAILY@2000 TOPIC 06/07/19 20:00 09/05/19 19:59 06/22/19 22:23 Dextrose (Dextrose 50%) 25 ml Q30M PRN IV Hypoglycemia 06/20/19 19:30 09/18/19 19:29 Dextrose (Dextrose 50%) 50 ml Q30M PRN IV Hypoglycemia 06/20/19 19:30 09/18/19 19:29 Docusate Sodium (Colace) 100 mg THREE TIMES A DAY NG 06/07/19 13:00 07/07/19 12:59 06/23/19 08:54 Dopamine HCl/ Dextrose 250 ml @ 0 mls/hr Q24H PRN IV For hypotension 06/13/19 08:15 09/11/19 08:14 Enoxaparin Sodium (Lovenox) 30 mg DAILY SUBQ 06/07/19 09:00 08/27/19 08:59 06/23/19 08:54 Epoetin Aftab (Epoetin Aftab(ESRD on dialysis)) 10,000 unit FRI-FRI-FRI SUBQ 06/07/19 21:00 08/31/19 20:59 06/21/19 20:48 Fentanyl Citrate 2500 mcg/Sodium Chloride 250 ml @ 0 mls/hr Q24H IV 06/20/19 07:45 06/27/19 07:44 06/23/19 08:57 Hydralazine HCl (Apresoline) 10 mg Q4H PRN IV Blood pressure over 160 systol 06/07/19 10:15 09/05/19 10:14 Insulin Aspart (NovoLOG) EVERY 6 HOURS SUBQ 06/21/19 00:00 09/19/19 00:00 06/23/19 06:33 Metoclopramide HCl (Reglan) 5 mg Q8H PRN IVP Nausea & Vomiting 06/18/19 12:00 6/7/20 11:59 06/19/19 00:50 Midodrine (Pro-Amatine) 10 mg THREE TIMES A DAY NG 06/09/19 13:00 09/07/19 12:59 06/23/19 08:54 Norepinephrine Bitartrate 16 mg/ Dextrose 566 ml @ 0 mls/hr Q24H IV 06/13/19 09:45 07/13/19 09:44 06/22/19 09:38 Pantoprazole (Protonix) 40 mg DAILY IVP 06/19/19 09:00 07/19/19 08:59 06/23/19 08:54 Piperacillin Sod/ Tazobactam Sod 2.25 gm/Dextrose 55 ml @ 110 mls/hr Q8HR IVPB 06/13/19 14:00 06/23/19 13:59 06/23/19 06:34 Sevelamer Carbonate (Renvela) 1,600 mg Q6HR NG 06/14/19 12:00 09/05/19 12:59 06/23/19 06:34 Ted Leyva MD June 23, 2019 10:18
--- NOTE | 2019-06-23 11:23 | Nephrology Progress Note ---
Assessment/Plan Problem List: (1) CASSANDRA (acute kidney injury) (2) Anemia in chronic kidney disease (CKD) (3) HTN (hypertension) (4) COVID-19 Assessment Acute renal failure most likely superimposed on chronic kidney disease Suspected COVID-19 virus infection Possible Pneumonia, lymphopenia, elevated AST Cardiomegaly, possible CHF COPD Hypertension Anemia, most likely related to chronic kidney disease Plan June 22: Status unchanged Dialyzed yesterday and due for dialysis tomorrow Serum sodium stable today June 21 Remains intubated on ventilator Due dialysis today Emphasized high sodium bath for dialysis June 20: Remains intubated on ventilator Dialyzed June 19 next dialysis June 21 Serum sodium 128, will give 250 cc 3% saline Remains full code Discussed with RN Iron panel ordered June 19: Discussed with RN. Patient due for dialysis today. Continue pulmonary support. Remains full code. June 18: Patient dialyzed yesterday June 17 Serum sodium improved but still low Arrange for dialysis tomorrow June 19 Continue per consultants June 17: Due for dialysis today Today's lab reviewed, low serum sodium noted, Emphasized on high sodium bath to dialysis nurse Discussed with SHANIQUE Yuen June 7: Dialyzed yesterday Remains intubated Labs reviewed, serum sodium 131 Plan to dialyze tomorrow June 17 with high sodium bath Discussed with SHANIQUE Yuen June 6: Due for dialysis today Labs reviewed Discussed with RN Transfuse 1 unit of packed RBCs today for low hemoglobin of 7.1 June 5: Blood pressure well maintained Receive dialysis June 13 next hemodialysis June 15June 4: Discussed with RN in ICU Patient did not receive proper dialysis yesterday due to dialysis catheter malfunction Catheter to be adjusted today and dialyzed to be resumed today Continue per consultants Positive for COVID 28 June 2: Patient now intubated on mechanical ventilation Discussed with SHANIQUE Yuen, today June 12 Patient received dialysis yesterday June 10 next hemodialysis June 12 Blood pressure better maintained Today's labs reviewed Continue per consultants Previously patient received dialysis last evening June 05, next dialysis June 07 which was incomplete due to patient's hypotension Will start on midodrine for blood pressure support. Meanwhile continue other pressors as needed Previously Patient is doing poorly, septic, white blood cells are rising, Hypotension somewhat improved We will keep n.p.o. , NG tube for medications, and change medication to IV as needed Patient remains full code Monitor vancomycin level Previously: Patient pulled out his femoral catheter yesterday June 03 which was reinserted by Dr. Mast Patient scheduled for dialysis again June 04, which again was not done due to dialysis nurse citing catheter malfunction Meanwhile continue management per ID, pulmonary , and psych. Meanwhile white blood cell count is rising. Patient blood pressure borderline low. Will check ABG Previously May 31 : I believe patient need dialysis treatment He however needs to competency assessment if can make decisions or not I will communicate with Dr. Mulligan Previously: Per pulmonary and ID advice Adjust blood pressure medication Renal diet Anemia work-up 2D echocardiogram refused Kidney ultrasound refused Jules catheter Urine studies Per orders Subjective ROS Limited/Unobtainable: Yes Objective Objective Last 24 Hour Vital Signs Date Time Temp Pulse Resp B/P (MAP) Pulse Ox O2 Delivery O2 Flow Rate FiO2 06/23/19 10:30 90 14 127/61 (83) 97 06/23/19 10:00 106 21 133/60 (84) 94 06/23/19 09:52 30 06/23/19 09:30 88 26 108/61 (77) 99 06/23/19 09:00 81 26 98/53 (68) 100 06/23/19 08:57 28 106/57 Mechanical Ventilator 40 06/23/19 08:30 91 23 133/63 (86) 100 06/23/19 08:00 30 06/23/19 08:00 Mechanical Ventilator 06/23/19 08:00 85 06/23/19 08:00 99.3 84 25 104/55 (71) 100 06/23/19 07:30 80 26 112/56 (74) 100 06/23/19 07:14 85 28 Mechanical Ventilator 40 40 06/23/19 07:00 83 24 107/61 (76) 100 06/23/19 06:49 86 26 06/23/19 06:30 82 26 106/57 (73) 100 06/23/19 06:00 80 26 99/56 (70) 100 06/23/19 06:00 106/57 06/23/19 05:30 84 25 95/54 (68) 100 06/23/19 05:00 26 116/62 Mechanical Ventilator 40 06/23/19 05:00 116/62 06/23/19 05:00 87 26 110/66 (81) 100 06/23/19 04:30 116 23 116/62 (80) 97 06/23/19 04:00 40 06/23/19 04:00 86 06/23/19 04:00 98.7 86 26 129/65 (86) 100 06/23/19 04:00 23 119/57 Mechanical Ventilator 40 06/23/19 04:00 119/57 06/23/19 04:00 Mechanical Ventilator 06/23/19 03:33 94 27 100 Mechanical Ventilator 40 97 27 40 06/23/19 03:30 95 8 150/79 (102) 100 06/23/19 03:00 12 154/96 Mechanical Ventilator 40 06/23/19 03:00 154/96 06/23/19 03:00 98 11 152/87 (108) 93 06/23/19 02:30 91 13 150/73 (98) 97 06/23/19 02:00 89 5 143/91 (108) 99 06/23/19 02:00 10 150/73 Mechanical Ventilator 40 06/23/19 02:00 150/73 06/23/19 01:30 86 14 134/82 (99) 100 06/23/19 01:00 23 104/56 Mechanical Ventilator 40 06/23/19 01:00 104/56 06/23/19 01:00 87 20 120/68 (85) 100 06/23/19 00:30 93 17 112/66 (81) 95 06/23/19 00:00 89 06/23/19 00:00 98.2 91 0 122/65 (84) 92 06/23/19 00:00 19 120/61 Mechanical Ventilator 40 06/23/19 00:00 120/61 06/23/19 00:00 Mechanical Ventilator 06/23/19 00:00 40 06/22/19 23:30 91 25 138/70 (92) 100 06/22/19 23:00 98 20 155/92 (113) 100 06/22/19 23:00 21 175/75 Mechanical Ventilator 40 06/22/19 23:00 175/75 06/22/19 22:37 102 26 100 Mechanical Ventilator 40 99 26 40 06/22/19 22:30 142 29 173/72 (105) 100 06/22/19 22:27 23 151/78 Mechanical Ventilator 40 06/22/19 22:00 112 22 138/69 (92) 98 06/22/19 22:00 18 151/78 Mechanical Ventilator 40 06/22/19 22:00 151/78 06/22/19 21:30 96 24 147/76 (99) 97 06/22/19 21:00 24 137/72 Mechanical Ventilator 40 06/22/19 21:00 137/72 06/22/19 21:00 87 26 124/68 (86) 96 06/22/19 20:30 91 16 143/68 (93) 98 06/22/19 20:00 87 14 141/79 (99) 98 06/22/19 20:00 Mechanical Ventilator 06/22/19 20:00 40 06/22/19 20:00 18 155/70 Mechanical Ventilator 40 06/22/19 20:00 155/70 06/22/19 20:00 85 06/22/19 19:30 98.7 113 22 172/78 (109) 99 06/22/19 19:27 80 28 100 Mechanical Ventilator 40 83 28 40 06/22/19 19:15 88 13 157/72 (100) 100 06/22/19 19:00 83 19 140/64 (89) 100 06/22/19 19:00 14 122/76 Mechanical Ventilator 40 06/22/19 19:00 157/72 06/22/19 18:30 74 26 125/57 (79) 100 06/22/19 18:00 76 26 122/60 (80) 100 06/22/19 18:00 118/59 06/22/19 17:30 100 21 117/68 (84) 100 06/22/19 17:00 100 18 136/66 (89) 100 06/22/19 17:00 133/66 06/22/19 16:28 92 21 136/63 (87) 100 06/22/19 16:00 Mechanical Ventilator 06/22/19 16:00 151/64 06/22/19 16:00 87 20 151/64 (93) 100 06/22/19 16:00 81 06/22/19 16:00 40 06/22/19 15:30 86 22 139/67 (91) 100 06/22/19 15:18 90 26 100 Mechanical Ventilator 40 95 30 40 06/22/19 15:00 90 20 157/61 (93) 100 06/22/19 14:30 97.0 82 23 141/66 (91) 100 06/22/19 14:00 85 27 124/60 (81) 100 06/22/19 14:00 114/55 06/22/19 13:30 85 27 138/70 (92) 100 06/22/19 13:00 88 25 82/54 (63) 100 06/22/19 12:30 92 24 112/66 (81) 100 06/22/19 12:00 94/61 06/22/19 12:00 100 06/22/19 12:00 40 06/22/19 12:00 Mechanical Ventilator 06/22/19 12:00 91 25 94/61 (72) 100 06/22/19 11:31 Mechanical Ventilator 06/22/19 11:30 96 25 127/67 (87) 100 Intake and Output 06/22/19 06/23/19 19:00 07:00 Intake Total 1114.90 ml 912.80 ml Output Total 2022 ml 10 ml Balance -907.10 ml 902.80 ml IV Total 634.90 ml 492.80 ml Tube Feeding 420 ml 420 ml Other 60 ml Output Urine Total 22 ml 10 ml Hemodialysis UF 2000 ml # Bowel Movements 1 1 Laboratory Tests 06/23/19 04:13: White Blood Count 11.2H, Red Blood Count 2.67L, Hemoglobin 8.1L, Hematocrit 25.0L, Mean Corpuscular Volume 94, Mean Corpuscular Hemoglobin 30.2, Mean Corpuscular Hemoglobin Concent 32.3, Red Cell Distribution Width 18.6H, Platelet Count 251, Mean Platelet Volume 7.8, Neutrophils (%) (Auto) , Lymphocytes (%) (Auto) , Monocytes (%) (Auto) , Eosinophils (%) (Auto) , Basophils (%) (Auto) , Differential Total Cells Counted 100, Neutrophils % ( Manual) 91H, Lymphocytes % (Manual) 3L, Monocytes % (Manual) 4, Eosinophils % ( Manual) 0, Basophils % (Manual) 1, Metamyelocytes % 1H, Band Neutrophils 0, Platelet Estimate Adequate, Platelet Morphology Normal, Hypochromasia 2+, Anisocytosis 2+, Sodium Level 133L, Potassium Level 3.5, Chloride Level 92L, Carbon Dioxide Level 27, Anion Gap 14, Blood Urea Nitrogen 50H, Creatinine 6.4H , Estimat Glomerular Filtration Rate 8.8, Glucose Level 210H, Uric Acid 3.9, Calcium Level 8.9, Phosphorus Level 5.5H, Magnesium Level 2.3, Total Bilirubin 0.4, Aspartate Amino Transf (AST/SGOT) 20, Alanine Aminotransferase (ALT/SGPT) 10L, Alkaline Phosphatase 84, Total Protein 7.7, Albumin 1.8L, Globulin 5.9, Albumin/Globulin Ratio 0.3L 06/23/19 08:27: Arterial Blood pH 7.383, Arterial Blood Partial Pressure CO2 40.4, Arterial Blood Partial Pressure O2 112.3H, Arterial Blood HCO3 23.5, Arterial Blood Oxygen Saturation 97.7, Arterial Blood Base Excess -1.4, Kosta Test Positive Height (Feet): 6 Height (Inches): 1.00 Weight (Pounds): 240 General Appearance: no apparent distress EENT: other - Remains intubated on ventilator Cardiovascular: tachycardia Respiratory/Chest: decreased breath sounds Abdomen: distended Objective No change Mic Cole MD June 23, 2019 11:23
--- NOTE | 2019-06-23 11:42 | Hematology/Onc Progress Note ---
Assessment/Plan Assessment/Plan Assessment and Recs: # Anemia of chronic disease, likely related ot underlying kidney disease has COIVD19++ --> hgb trend 9-->8-->7.3-->7.9-->6.8->9.5-->10->8.3-->7.7-->7.1-->8.9->8.8->7.7 -->8.1 --> transfuse as needed, hgb goal >7 --> no evidence of hemolysis --> peripheral smear has been reviewed --> epogen started three x a week ==>> transfuse w 2 units 06/08, 06/15, # Leukocytosis likely related to suspected COVID-19 virus infection --> completed plaquenil --> trend smear as needed --> initially 4-->11-->14.5-->21-->26-->21->24--.28-->23-->19-->16.2-->21--> 11.2 --> pulm is aware --> on abx cefepime/vanc->zosyn/vanc --> pressors as needed # Thrombocytopenia/Lymphopenia --> likely related to covid19 --> plt 129k-->186k-->251 # Respiratory failure with covid19+ --> s/p vent # Possible Pneumonia --> abx given --> on zosyn and vanc # Cardiomegaly # Transaminitis with Elevated AST # COPD # Chronic Kidney Disease --> per renal hd # Hypertension # Dvt ppx lovenox Appreciate consultation and dw Rn Subjective Allergies: Coded Allergies: No Known Allergies (Unverified , 05/28/19) Subjective 06/01 nv, extremely agitated, not allowing labs draws, no night sweats, cbc ordered 06/02 confused, restraints, on abx and plaquenil, hgb 7.9, nrb 15 L 06/03 is with nonrebreather, but not compliant, remains confused 06/05 no bleeding, labs noted, no major bleeding, otherwise comfortable 06/06 labs reviewed, no bleeding, meds noted, no night sweats, on levo and nonrebreather 06/07 labs noted, no bleeding, meds reviewed, no bleeding, wbc higher 06/08 to get 2 units prbc, no night sweats, meds reviewed 06/09 is on cefepime and vanc, labs noted, ernesto Rn, no bleeding 06/10 no major changes, labs reviewed, wbc 28k, on abx, cefepime 06/12 remains in icu, labs noted, no night sweats or bleeding 06/13 sluggish pupils, remains agitated, per psych, no bleding, on vent, wbc sitll high 06/14 still confused, remains on vent, with ng, running nepro, on pressors 06/15 icu, febrile, non verbal, hgb 7.1, blood pending, completed plaq 06/16 remains in the icu, nonverbal, plan for hd tomorrow, ernesto rn 06/17 in icu, on pressor, nonverbal, on abx, no bleeding 06/19 no bleeding, nonverbal in icu, hgb is 7.7 06/20 on zosyn, tube feeds, vent, labs noted, in icu, nv 06/21 gettng hd as per renal, in icu, nv, no bleeding, tfs 06/22 icu, cxr with slight improvement, cooling blanket, weaning today Objective Objective Current Medications Medications (Trade) Dose Ordered Sig/Anthony Route PRN Reason Start Time Stop Time Status Last Admin Dose Admin Acetaminophen (Tylenol) 650 mg Q4H PRN NG Temp >100.5 06/13/19 11:00 07/13/19 10:59 06/20/19 17:38 Albuterol Sulfate (Proventil MDI) 2 puff Q4HRT INH 06/06/19 23:00 08/30/19 18:59 06/23/19 09:53 Chlorhexidine Gluconate (Michelle-Hex 2%) 1 applic DAILY@1999 TOPIC 06/07/19 20:00 09/05/19 19:59 06/22/19 22:23 Dextrose (Dextrose 50%) 25 ml Q30M PRN IV Hypoglycemia 06/20/19 19:30 09/18/19 19:29 Dextrose (Dextrose 50%) 50 ml Q30M PRN IV Hypoglycemia 06/20/19 19:30 09/18/19 19:29 Docusate Sodium (Colace) 100 mg THREE TIMES A DAY NG 06/07/19 13:00 07/07/19 12:59 06/23/19 08:54 Dopamine HCl/ Dextrose 250 ml @ 0 mls/hr Q24H PRN IV For hypotension 06/13/19 08:15 09/11/19 08:14 Enoxaparin Sodium (Lovenox) 30 mg DAILY SUBQ 06/07/19 09:00 08/27/19 08:59 06/23/19 08:54 Epoetin Aftab (Epoetin Aftab(ESRD on dialysis)) 10,000 unit FRI- SUBQ 06/07/19 21:00 08/31/19 20:59 06/21/19 20:48 Fentanyl Citrate 2500 mcg/Sodium Chloride 250 ml @ 0 mls/hr Q24H IV 06/20/19 07:45 06/27/19 07:44 06/23/19 08:57 Hydralazine HCl (Apresoline) 10 mg Q4H PRN IV Blood pressure over 160 systol 06/07/19 10:15 09/05/19 10:14 Insulin Aspart (NovoLOG) EVERY 6 HOURS SUBQ 06/21/19 00:00 09/19/19 00:00 06/23/19 06:33 Metoclopramide HCl (Reglan) 5 mg Q8H PRN IVP Nausea & Vomiting 06/18/19 12:00 07/18/19 11:59 06/19/19 00:50 Midodrine (Pro-Amatine) 10 mg THREE TIMES A DAY NG 06/09/19 13:00 09/07/19 12:59 06/23/19 08:54 Norepinephrine Bitartrate 16 mg/ Dextrose 566 ml @ 0 mls/hr Q24H IV 06/13/19 09:45 07/13/19 09:44 06/22/19 09:38 Pantoprazole (Protonix) 40 mg DAILY IVP 06/19/19 09:00 07/19/19 08:59 06/23/19 08:54 Sevelamer Carbonate (Renvela) 1,600 mg Q6HR NG 06/14/19 12:00 09/05/19 12:59 06/23/19 06:34 Last 24 Hour Vital Signs Date Time Temp Pulse Resp B/P (MAP) Pulse Ox O2 Delivery O2 Flow Rate FiO2 06/23/19 11:03 85 26 95 Mechanical Ventilator 30 88 26 30 06/23/19 10:30 90 14 127/61 (83) 97 06/23/19 10:00 106 21 133/60 (84) 94 06/23/19 09:52 30 06/23/19 09:30 88 26 108/61 (77) 99 06/23/19 09:00 81 26 98/53 (68) 100 06/23/19 08:57 28 106/57 Mechanical Ventilator 40 06/23/19 08:30 91 23 133/63 (86) 100 06/23/19 08:00 30 06/23/19 08:00 Mechanical Ventilator 06/23/19 08:00 85 06/23/19 08:00 99.3 84 25 104/55 (71) 100 06/23/19 07:30 80 26 112/56 (74) 100 06/23/19 07:14 85 28 Mechanical Ventilator 40 40 06/23/19 07:00 83 24 107/61 (76) 100 06/23/19 06:49 86 26 06/23/19 06:30 82 26 106/57 (73) 100 06/23/19 06:00 80 26 99/56 (70) 100 06/23/19 06:00 106/57 06/23/19 05:30 84 25 95/54 (68) 100 06/23/19 05:00 26 116/62 Mechanical Ventilator 40 06/23/19 05:00 116/62 06/23/19 05:00 87 26 110/66 (81) 100 06/23/19 04:30 116 23 116/62 (80) 97 06/23/19 04:00 40 06/23/19 04:00 86 06/23/19 04:00 98.7 86 26 129/65 (86) 100 06/23/19 04:00 23 119/57 Mechanical Ventilator 40 06/23/19 04:00 119/57 06/23/19 04:00 Mechanical Ventilator 06/23/19 03:33 94 27 100 Mechanical Ventilator 40 97 27 40 06/23/19 03:30 95 8 150/79 (102) 100 06/23/19 03:00 12 154/96 Mechanical Ventilator 40 06/23/19 03:00 154/96 06/23/19 03:00 98 11 152/87 (108) 93 5/13/20 02:30 91 13 150/73 (98) 97 06/23/19 02:00 89 5 143/91 (108) 99 06/23/19 02:00 10 150/73 Mechanical Ventilator 40 06/23/19 02:00 150/73 06/23/19 01:30 86 14 134/82 (99) 100 06/23/19 01:00 23 104/56 Mechanical Ventilator 40 06/23/19 01:00 104/56 06/23/19 01:00 87 20 120/68 (85) 100 06/23/19 00:30 93 17 112/66 (81) 95 06/23/19 00:00 89 06/23/19 00:00 98.2 91 0 122/65 (84) 92 06/23/19 00:00 19 120/61 Mechanical Ventilator 40 06/23/19 00:00 120/61 06/23/19 00:00 Mechanical Ventilator 06/23/19 00:00 40 06/22/19 23:30 91 25 138/70 (92) 100 06/22/19 23:00 98 20 155/92 (113) 100 06/22/19 23:00 21 175/75 Mechanical Ventilator 40 06/22/19 23:00 175/75 06/22/19 22:37 102 26 100 Mechanical Ventilator 40 99 26 40 06/22/19 22:30 142 29 173/72 (105) 100 06/22/19 22:27 23 151/78 Mechanical Ventilator 40 06/22/19 22:00 112 22 138/69 (92) 98 06/22/19 22:00 18 151/78 Mechanical Ventilator 40 06/22/19 22:00 151/78 06/22/19 21:30 96 24 147/76 (99) 97 06/22/19 21:00 24 137/72 Mechanical Ventilator 40 06/22/19 21:00 137/72 06/22/19 21:00 87 26 124/68 (86) 96 06/22/19 20:30 91 16 143/68 (93) 98 06/22/19 20:00 87 14 141/79 (99) 98 06/22/19 20:00 Mechanical Ventilator 06/22/19 20:00 40 06/22/19 20:00 18 155/70 Mechanical Ventilator 40 06/22/19 20:00 155/70 06/22/19 20:00 85 06/22/19 19:30 98.7 113 22 172/78 (109) 99 06/22/19 19:27 80 28 100 Mechanical Ventilator 40 83 28 40 06/22/19 19:15 88 13 157/72 (100) 100 06/22/19 19:00 83 19 140/64 (89) 100 06/22/19 19:00 14 122/76 Mechanical Ventilator 40 06/22/19 19:00 157/72 06/22/19 18:30 74 26 125/57 (79) 100 06/22/19 18:00 76 26 122/60 (80) 100 06/22/19 18:00 118/59 06/22/19 17:30 100 21 117/68 (84) 100 06/22/19 17:00 100 18 136/66 (89) 100 06/22/19 17:00 133/66 06/22/19 16:28 92 21 136/63 (87) 100 06/22/19 16:00 Mechanical Ventilator 06/22/19 16:00 151/64 06/22/19 16:00 87 20 151/64 (93) 100 06/22/19 16:00 81 06/22/19 16:00 40 06/22/19 15:30 86 22 139/67 (91) 100 06/22/19 15:18 90 26 100 Mechanical Ventilator 40 95 30 40 06/22/19 15:00 90 20 157/61 (93) 100 06/22/19 14:30 97.0 82 23 141/66 (91) 100 06/22/19 14:00 85 27 124/60 (81) 100 06/22/19 14:00 114/55 06/22/19 13:30 85 27 138/70 (92) 100 06/22/19 13:00 88 25 82/54 (63) 100 06/22/19 12:30 92 24 112/66 (81) 100 06/22/19 12:00 94/61 06/22/19 12:00 100 06/22/19 12:00 40 06/22/19 12:00 Mechanical Ventilator 06/22/19 12:00 91 25 94/61 (72) 100 06/22/19 11:31 Mechanical Ventilator 5/12/20 11:30 96 25 127/67 (87) 100 06/22/19 11:00 79 25 97/54 (68) 100 06/22/19 11:00 97/54 06/22/19 10:53 78 26 100 Mechanical Ventilator 40 77 26 40 06/22/19 10:30 79 24 97/49 (65) 100 06/22/19 10:00 102/53 06/22/19 10:00 80 25 102/53 (69) 100 06/22/19 09:38 112/58 06/22/19 09:30 72 25 156/58 (90) 100 06/22/19 09:00 81 21 117/57 (77) 100 06/22/19 08:30 73 20 117/61 (79) 100 06/22/19 08:00 72 25 100/56 (71) 99 06/22/19 08:00 Mechanical Ventilator 06/22/19 08:00 40 06/22/19 08:00 78 12 90/49 (63) 99 06/22/19 08:00 100/56 06/22/19 08:00 74 06/22/19 07:30 75 26 99/52 (68) 100 06/22/19 07:13 77 28 100 Mechanical Ventilator 40 74 28 40 06/22/19 07:00 28 Mechanical Ventilator 40 06/22/19 07:00 90/49 06/22/19 07:00 78 12 90/49 (63) 99 06/22/19 06:15 104/54 06/22/19 06:00 75 13 99/50 (66) 100 06/22/19 06:00 27 Mechanical Ventilator 40 06/22/19 06:00 99/50 06/22/19 05:30 81 23 111/68 (82) 100 06/22/19 05:27 98.4 06/22/19 05:00 91 26 119/67 (84) 100 06/22/19 05:00 28 Mechanical Ventilator 40 06/22/19 05:00 119/67 06/22/19 04:30 91 25 127/55 (79) 99 06/22/19 04:12 28 Mechanical Ventilator 40 06/22/19 04:00 98.6 76 24 114/57 (76) 100 06/22/19 04:00 40 06/22/19 04:00 72 06/22/19 04:00 114/57 5/12/20 04:00 Mechanical Ventilator 06/22/19 03:30 71 26 124/55 (78) 100 06/22/19 03:25 72 26 100 Mechanical Ventilator 40 71 26 40 06/22/19 03:00 22 Mechanical Ventilator 40 06/22/19 03:00 129/68 06/22/19 03:00 68 25 129/64 (85) 100 06/22/19 02:30 69 26 127/57 (80) 100 06/22/19 02:00 76 19 124/60 (81) 100 06/22/19 02:00 20 Mechanical Ventilator 40 06/22/19 02:00 120/54 06/22/19 01:30 75 26 109/51 (70) 100 06/22/19 01:00 74 21 113/53 (73) 100 06/22/19 01:00 21 Mechanical Ventilator 40 06/22/19 01:00 113/53 06/22/19 00:30 70 26 97/51 (66) 100 06/22/19 00:00 98.4 79 23 124/66 (85) 100 06/22/19 00:00 71 06/22/19 00:00 26 Mechanical Ventilator 40 06/22/19 00:00 124/66 06/22/19 00:00 Mechanical Ventilator 06/22/19 00:00 40 06/21/19 23:59 68 27 100 Mechanical Ventilator 40 74 27 40 06/21/19 23:30 75 26 109/51 (70) 100 06/21/19 23:00 74 26 112/51 (71) 100 06/21/19 23:00 26 Mechanical Ventilator 40 06/21/19 23:00 112/51 06/21/19 22:30 71 26 101/50 (67) 100 06/21/19 22:00 74 25 98/47 (64) 100 06/21/19 22:00 27 Mechanical Ventilator 40 06/21/19 22:00 98/47 06/21/19 21:30 98.6 68 25 100/49 (66) 100 06/21/19 21:00 27 Mechanical Ventilator 40 06/21/19 21:00 100/49 06/21/19 21:00 69 25 100/51 (67) 100 06/21/19 20:30 67 25 123/64 (83) 100 06/21/19 20:01 69 28 100 Mechanical Ventilator 40 65 27 40 06/21/19 20:00 Mechanical Ventilator 06/21/19 20:00 99.1 68 26 124/59 (80) 100 06/21/19 20:00 26 Mechanical Ventilator 40 06/21/19 20:00 124/59 06/21/19 20:00 76 06/21/19 20:00 40 06/21/19 19:30 73 26 97/52 (67) 100 06/21/19 19:00 83 25 83/50 (61) 100 06/21/19 19:00 25 Endotracheal Tube 40 06/21/19 19:00 83/50 06/21/19 18:45 86 26 87/43 (58) 100 06/21/19 18:30 87 25 85/44 (58) 100 06/21/19 18:18 27 Endotracheal Tube 70.0 40 06/21/19 18:15 87 26 93/48 (63) 100 06/21/19 18:00 98.5 84 26 91/49 (63) 100 06/21/19 18:00 26 Endotracheal Tube 40 06/21/19 18:00 93/48 06/21/19 17:30 83 25 127/53 (77) 100 06/21/19 17:00 70 27 102/50 (67) 100 06/21/19 17:00 27 Bi-pap 40 06/21/19 17:00 99/50 06/21/19 16:45 71 26 104/51 (68) 100 06/21/19 16:30 95.6 73 26 89/50 (63) 100 06/21/19 16:30 89/50 06/21/19 16:15 78 26 82/46 (58) 100 06/21/19 16:00 84 26 97/55 (69) 100 06/21/19 16:00 26 Endotracheal Tube 40 06/21/19 16:00 97/55 06/21/19 16:00 Mechanical Ventilator 06/21/19 16:00 61 06/21/19 16:00 40 06/21/19 15:30 65 26 111/59 (76) 100 06/21/19 15:29 61 06/21/19 15:25 60 26 100 Mechanical Ventilator 40 60 26 40 06/21/19 15:00 26 Endotracheal Tube 40 06/21/19 15:00 112/54 06/21/19 15:00 63 26 112/54 (73) 100 06/21/19 14:30 65 27 103/53 (70) 100 06/21/19 14:00 24 Endotracheal Tube 40 06/21/19 14:00 90/44 06/21/19 14:00 74 24 90/44 (59) 100 06/21/19 13:30 74 25 92/50 (64) 99 06/21/19 13:00 73 26 104/55 (71) 100 06/21/19 13:00 26 Endotracheal Tube 40 06/21/19 13:00 93/52 06/21/19 12:30 71 26 105/58 (74) 100 06/21/19 12:00 Mechanical Ventilator 06/21/19 12:00 Mechanical Ventilator 06/21/19 12:00 97.9 75 27 112/59 (76) 100 06/21/19 12:00 27 Endotracheal Tube 40 06/21/19 12:00 127/62 06/21/19 12:00 40 Intake and Output 06/22/19 06/23/19 19:00 07:00 Intake Total 1114.90 ml 912.80 ml Output Total 2022 ml 10 ml Balance -907.10 ml 902.80 ml IV Total 634.90 ml 492.80 ml Tube Feeding 420 ml 420 ml Other 60 ml Output Urine Total 22 ml 10 ml Hemodialysis UF 2000 ml # Bowel Movements 1 1 Labs Test 06/21/19 05:30 06/22/19 06:13 06/23/19 04:13 06/23/19 08:27 White Blood Count 14.9 K/UL (4.8-10.8) 13.0 K/UL (4.8-10.8) 11.2 K/UL (4.8-10.8) Red Blood Count 2.58 M/UL (4.70-6.10) 2.73 M/UL (4.70-6.10) 2.67 M/UL (4.70-6.10) Hemoglobin 7.9 G/DL (14.2-18.0) 8.2 G/DL (14.2-18.0) 8.1 G/DL (14.2-18.0) Hematocrit 24.2 % (42.0-52.0) 25.5 % (42.0-52.0) 25.0 % (42.0-52.0) Mean Corpuscular Volume 94 FL (80-99) 94 FL (80-99) 94 FL (80-99) Mean Corpuscular Hemoglobin 30.6 PG (27.0-31.0) 30.0 PG (27.0-31.0) 30.2 PG (27.0-31.0) Mean Corpuscular Hemoglobin Concent 32.6 G/DL (32.0-36.0) 32.1 G/DL (32.0-36.0) 32.3 G/DL (32.0-36.0) Red Cell Distribution Width 18.9 % (11.6-14.8) 18.7 % (11.6-14.8) 18.6 % (11.6-14.8) Platelet Count 246 K/UL (150-450) 264 K/UL (150-450) 251 K/UL (150-450) Mean Platelet Volume 7.7 FL (6.5-10.1) 7.4 FL (6.5-10.1) 7.8 FL (6.5-10.1) Neutrophils (%) (Auto) % (45.0-75.0) % (45.0-75.0) % (45.0-75.0) Lymphocytes (%) (Auto) % (20.0-45.0) % (20.0-45.0) % (20.0-45.0) Monocytes (%) (Auto) % (1.0-10.0) % (1.0-10.0) % (1.0-10.0) Eosinophils (%) (Auto) % (0.0-3.0) % (0.0-3.0) % (0.0-3.0) Basophils (%) (Auto) % (0.0-2.0) % (0.0-2.0) % (0.0-2.0) Differential Total Cells Counted 100 100 100 Neutrophils % (Manual) 87 % (45-75) 88 % (45-75) 91 % (45-75) Lymphocytes % (Manual) 10 % (20-45) 6 % (20-45) 3 % (20-45) Monocytes % (Manual) 2 % (1-10) 5 % (1-10) 4 % (1-10) Eosinophils % (Manual) 1 % (0-3) 0 % (0-3) 0 % (0-3) Basophils % (Manual) 0 % (0-2) 0 % (0-2) 1 % (0-2) Band Neutrophils 0 % (0-8) 1 % (0-8) 0 % (0-8) Platelet Estimate Adequate Adequate Adequate Platelet Morphology Normal Normal Normal Hypochromasia 3+ 2+ Anisocytosis 2+ 1+ 2+ Sodium Level 128 MMOL/L (136-145) 127 MMOL/L (136-145) 133 MMOL/L (136-145) Potassium Level 4.0 MMOL/L (3.5-5.1) 3.7 MMOL/L (3.5-5.1) 3.5 MMOL/L (3.5-5.1) Chloride Level 89 MMOL/L (98-107) 88 MMOL/L (98-107) 92 MMOL/L (98-107) Carbon Dioxide Level 23 MMOL/L (21-32) 24 MMOL/L (21-32) 27 MMOL/L (21-32) Anion Gap 16 mmol/L (5-15) 14 mmol/L (5-15) Blood Urea Nitrogen 56 mg/dL (7-18) 64 mg/dL (7-18) 50 mg/dL (7-18) Creatinine 7.6 MG/DL (0.55-1.30) 8.2 MG/DL (0.55-1.30) 6.4 MG/DL (0.55-1.30) Estimat Glomerular Filtration Rate 7.2 mL/min (>60) 6.6 mL/min (>60) 8.8 mL/min (>60) Glucose Level 232 MG/DL (74-106) 212 MG/DL (74-106) 210 MG/DL (74-106) Uric Acid 3.9 MG/DL (2.6-7.2) 3.9 MG/DL (2.6-7.2) Calcium Level 7.6 MG/DL (8.5-10.1) 8.4 MG/DL (8.5-10.1) 8.9 MG/DL (8.5-10.1) Phosphorus Level 6.0 MG/DL (2.5-4.9) 5.5 MG/DL (2.5-4.9) Magnesium Level 2.1 MG/DL (1.8-2.4) 2.3 MG/DL (1.8-2.4) Total Bilirubin 0.4 MG/DL (0.2-1.0) 0.4 MG/DL (0.2-1.0) 0.4 MG/DL (0.2-1.0) Aspartate Amino Transf (AST/SGOT) 19 U/L (15-37) 17 U/L (15-37) 20 U/L (15-37) Alanine Aminotransferase (ALT/SGPT) 10 U/L (12-78) 12 U/L (12-78) 10 U/L (12-78) Alkaline Phosphatase 77 U/L (46-116) 71 U/L (46-116) 84 U/L (46-116) C-Reactive Protein, Quantitative 29.9 mg/dL (0.00-0.90) Total Protein 7.5 G/DL (6.4-8.2) 7.6 G/DL (6.4-8.2) 7.7 G/DL (6.4-8.2) Albumin 1.7 G/DL (3.4-5.0) 1.6 G/DL (3.4-5.0) 1.8 G/DL (3.4-5.0) Globulin 5.8 g/dL 6.0 g/dL 5.9 g/dL Albumin/Globulin Ratio 0.3 (1.0-2.7) 0.3 (1.0-2.7) 0.3 (1.0-2.7) Iron Level 21 ug/dL (50-175) Total Iron Binding Capacity 101 ug/dL (250-450) Percent Iron Saturation 21 % (15-50) Unsaturated Iron Binding 80 ug/dL (112-346) Ferritin 414 NG/ML (8-388) Metamyelocytes % 1 % (0-0) Arterial Blood pH 7.383 (7.350-7.450) Arterial Blood Partial Pressure CO2 40.4 mmHg (35.0-45.0) Arterial Blood Partial Pressure O2 112.3 mmHg (75.0-100.0) Arterial Blood HCO3 23.5 mmol/L (22.0-26.0) Arterial Blood Oxygen Saturation 97.7 % (95-100) Arterial Blood Base Excess -1.4 (-2-2) Kosta Test Positive Height (Feet): 6 Height (Inches): 1.00 Weight (Pounds): 240 Objective Sp02 EP Interpretation: reviewed General: nv, confused, sedated Heent: bilateral eye normal inspection, bilateral eye PERRL ++Ng Respiratory: normal breath sounds, no respiratory distress, intubated+++ Cardiovascular: regular rate, rhythm, no edema Gastrointestinal: normal inspection, soft, non-distended Rectal: deferred Musculoskeletal: normal range of motion, non-tender Neurologic: alert, motor strength/tone normal, sensory intact, responsive, speech normal Skin: Decubitus/Ulcer - See RN skin exam. : jamaal+ Greg Cabral MD June 23, 2019 11:41
--- NOTE | 2019-06-23 13:44 | Cardiac Electrophysiology PN ---
Assessment/Plan Assessment/Plan 1. Elevated troponin. Troponin on May 27 and May 30 were negative; however , on June 01, it was elevated at 0.074. Repeat 0.05. Likely due to renal failure. On Aspirin. EF 60%. 2. Septic shock. On Levo 2 mc and iv ABx 3. ESRD, on hemodialysis per Dr. Cole. 4. Respiratory failure due to COVID-19 positive pneumonia. On the Vent with 30% Fio2. Fu by Dr. Mckeon. 5. MRSA carrier. 6. COPD. 7. Anemia. 8. Depression. 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 In SR. Is Covid positive x 3. Had 2 liter HD yesterday. In SR Objective Last 24 Hour Vital Signs Date Time Temp Pulse Resp B/P (MAP) Pulse Ox O2 Delivery O2 Flow Rate FiO2 06/23/19 13:00 26 145/67 Mechanical Ventilator 30 06/23/19 13:00 145/67 06/23/19 13:00 94 12 145/67 (93) 96 06/23/19 12:30 83 26 126/63 (84) 99 06/23/19 12:00 30 06/23/19 12:00 98.3 82 26 127/63 (84) 98 06/23/19 12:00 25 127/63 Mechanical Ventilator 30 06/23/19 12:00 127/63 06/23/19 12:00 Mechanical Ventilator 06/23/19 12:00 91 06/23/19 11:30 90 13 123/58 (79) 97 06/23/19 11:03 85 26 95 Mechanical Ventilator 30 88 26 30 06/23/19 11:00 94 21 126/65 (85) 97 06/23/19 11:00 23 126/65 30 06/23/19 11:00 126/65 06/23/19 10:30 90 14 127/61 (83) 97 06/23/19 10:00 15 133/60 Mechanical Ventilator 30 06/23/19 10:00 133/60 06/23/19 10:00 106 21 133/60 (84) 94 06/23/19 09:52 30 06/23/19 09:30 88 26 108/61 (77) 99 06/23/19 09:00 81 26 98/53 (68) 100 06/23/19 09:00 26 98/53 Mechanical Ventilator 30 06/23/19 09:00 98/53 06/23/19 08:57 28 106/57 Mechanical Ventilator 40 06/23/19 08:30 91 23 133/63 (86) 100 06/23/19 08:00 104/55 06/23/19 08:00 30 06/23/19 08:00 Mechanical Ventilator 06/23/19 08:00 85 06/23/19 08:00 99.3 84 25 104/55 (71) 100 06/23/19 07:30 80 26 112/56 (74) 100 06/23/19 07:14 85 28 Mechanical Ventilator 40 40 06/23/19 07:00 83 24 107/61 (76) 100 06/23/19 07:00 107/61 06/23/19 06:49 86 26 06/23/19 06:30 82 26 106/57 (73) 100 06/23/19 06:00 80 26 99/56 (70) 100 06/23/19 06:00 106/57 06/23/19 05:30 84 25 95/54 (68) 100 06/23/19 05:00 26 116/62 Mechanical Ventilator 40 06/23/19 05:00 116/62 06/23/19 05:00 87 26 110/66 (81) 100 06/23/19 04:30 116 23 116/62 (80) 97 06/23/19 04:00 40 06/23/19 04:00 86 06/23/19 04:00 98.7 86 26 129/65 (86) 100 06/23/19 04:00 23 119/57 Mechanical Ventilator 40 06/23/19 04:00 119/57 06/23/19 04:00 Mechanical Ventilator 06/23/19 03:33 94 27 100 Mechanical Ventilator 40 97 27 40 06/23/19 03:30 95 8 150/79 (102) 100 06/23/19 03:00 12 154/96 Mechanical Ventilator 40 06/23/19 03:00 154/96 06/23/19 03:00 98 11 152/87 (108) 93 06/23/19 02:30 91 13 150/73 (98) 97 06/23/19 02:00 89 5 143/91 (108) 99 06/23/19 02:00 10 150/73 Mechanical Ventilator 40 06/23/19 02:00 150/73 06/23/19 01:30 86 14 134/82 (99) 100 06/23/19 01:00 23 104/56 Mechanical Ventilator 40 06/23/19 01:00 104/56 06/23/19 01:00 87 20 120/68 (85) 100 06/23/19 00:30 93 17 112/66 (81) 95 06/23/19 00:00 89 06/23/19 00:00 98.2 91 0 122/65 (84) 92 06/23/19 00:00 19 120/61 Mechanical Ventilator 40 06/23/19 00:00 120/61 06/23/19 00:00 Mechanical Ventilator 06/23/19 00:00 40 06/22/19 23:30 91 25 138/70 (92) 100 06/22/19 23:00 98 20 155/92 (113) 100 06/22/19 23:00 21 175/75 Mechanical Ventilator 40 06/22/19 23:00 175/75 06/22/19 22:37 102 26 100 Mechanical Ventilator 40 99 26 40 06/22/19 22:30 142 29 173/72 (105) 100 06/22/19 22:27 23 151/78 Mechanical Ventilator 40 06/22/19 22:00 112 22 138/69 (92) 98 06/22/19 22:00 18 151/78 Mechanical Ventilator 40 06/22/19 22:00 151/78 06/22/19 21:30 96 24 147/76 (99) 97 06/22/19 21:00 24 137/72 Mechanical Ventilator 40 06/22/19 21:00 137/72 06/22/19 21:00 87 26 124/68 (86) 96 06/22/19 20:30 91 16 143/68 (93) 98 06/22/19 20:00 87 14 141/79 (99) 98 06/22/19 20:00 Mechanical Ventilator 06/22/19 20:00 40 06/22/19 20:00 18 155/70 Mechanical Ventilator 40 06/22/19 20:00 155/70 06/22/19 20:00 85 06/22/19 19:30 98.7 113 22 172/78 (109) 99 06/22/19 19:27 80 28 100 Mechanical Ventilator 40 83 28 40 06/22/19 19:15 88 13 157/72 (100) 100 06/22/19 19:00 83 19 140/64 (89) 100 06/22/19 19:00 14 122/76 Mechanical Ventilator 40 06/22/19 19:00 157/72 06/22/19 18:30 74 26 125/57 (79) 100 06/22/19 18:00 76 26 122/60 (80) 100 06/22/19 18:00 118/59 06/22/19 17:30 100 21 117/68 (84) 100 06/22/19 17:00 100 18 136/66 (89) 100 06/22/19 17:00 133/66 06/22/19 16:28 92 21 136/63 (87) 100 06/22/19 16:00 Mechanical Ventilator 06/22/19 16:00 151/64 06/22/19 16:00 87 20 151/64 (93) 100 06/22/19 16:00 81 06/22/19 16:00 40 06/22/19 15:30 86 22 139/67 (91) 100 06/22/19 15:18 90 26 100 Mechanical Ventilator 40 95 30 40 06/22/19 15:00 90 20 157/61 (93) 100 06/22/19 14:30 97.0 82 23 141/66 (91) 100 06/22/19 14:00 85 27 124/60 (81) 100 06/22/19 14:00 114/55 Intake and Output 06/22/19 06/23/19 19:00 07:00 Intake Total 1114.90 ml 912.80 ml Output Total 2022 ml 10 ml Balance -907.10 ml 902.80 ml IV Total 634.90 ml 492.80 ml Tube Feeding 420 ml 420 ml Other 60 ml Output Urine Total 22 ml 10 ml Hemodialysis UF 2000 ml # Bowel Movements 1 1 Laboratory Tests Test 06/23/19 04:13 06/23/19 08:27 White Blood Count 11.2 K/UL (4.8-10.8) H Red Blood Count 2.67 M/UL (4.70-6.10) L Hemoglobin 8.1 G/DL (14.2-18.0) L Hematocrit 25.0 % (42.0-52.0) L Mean Corpuscular Volume 94 FL (80-99) Mean Corpuscular Hemoglobin 30.2 PG (27.0-31.0) Mean Corpuscular Hemoglobin Concent 32.3 G/DL (32.0-36.0) Red Cell Distribution Width 18.6 % (11.6-14.8) H Platelet Count 251 K/UL (150-450) Mean Platelet Volume 7.8 FL (6.5-10.1) Neutrophils (%) (Auto) % (45.0-75.0) Lymphocytes (%) (Auto) % (20.0-45.0) Monocytes (%) (Auto) % (1.0-10.0) Eosinophils (%) (Auto) % (0.0-3.0) Basophils (%) (Auto) % (0.0-2.0) Differential Total Cells Counted 100 Neutrophils % (Manual) 91 % (45-75) H Lymphocytes % (Manual) 3 % (20-45) L Monocytes % (Manual) 4 % (1-10) Eosinophils % (Manual) 0 % (0-3) Basophils % (Manual) 1 % (0-2) Metamyelocytes % 1 % (0-0) H Band Neutrophils 0 % (0-8) Platelet Estimate Adequate Platelet Morphology Normal Hypochromasia 2+ Anisocytosis 2+ Sodium Level 133 MMOL/L (136-145) L Potassium Level 3.5 MMOL/L (3.5-5.1) Chloride Level 92 MMOL/L (98-107) L Carbon Dioxide Level 27 MMOL/L (21-32) Anion Gap 14 mmol/L (5-15) Blood Urea Nitrogen 50 mg/dL (7-18) H Creatinine 6.4 MG/DL (0.55-1.30) H Estimat Glomerular Filtration Rate 8.8 mL/min (>60) Glucose Level 210 MG/DL (74-106) H Uric Acid 3.9 MG/DL (2.6-7.2) Calcium Level 8.9 MG/DL (8.5-10.1) Phosphorus Level 5.5 MG/DL (2.5-4.9) H Magnesium Level 2.3 MG/DL (1.8-2.4) Total Bilirubin 0.4 MG/DL (0.2-1.0) Aspartate Amino Transf (AST/SGOT) 20 U/L (15-37) Alanine Aminotransferase (ALT/SGPT) 10 U/L (12-78) L Alkaline Phosphatase 84 U/L (46-116) Total Protein 7.7 G/DL (6.4-8.2) Albumin 1.8 G/DL (3.4-5.0) L Globulin 5.9 g/dL Albumin/Globulin Ratio 0.3 (1.0-2.7) L Arterial Blood pH 7.383 (7.350-7.450) Arterial Blood Partial Pressure CO2 40.4 mmHg (35.0-45.0) Arterial Blood Partial Pressure O2 112.3 mmHg (75.0-100.0) H Arterial Blood HCO3 23.5 mmol/L (22.0-26.0) Arterial Blood Oxygen Saturation 97.7 % (95-100) Arterial Blood Base Excess -1.4 (-2-2) Kosta Test Positive Objective HEAD AND NECK: No JVD.Orally intubated LUNGS: Decreased breath sounds. CARDIOVASCULAR: Regular S1 and S2. Tachycardic. ABDOMEN: Soft. EXTREMITIES: No pitting edema. New Left FV Gio Engle MD June 23, 2019 13:44
--- NOTE | 2019-06-23 17:24 | Pulmonolgy Critical Care Note ---
Critical Care - Asmt/Plan Assessment/Plan: Pulmonary CCM Progress Note HPI: Patient is a 68 year old man, [facility] resident, admitted c/o shortness of breath, cough, noted to have Covid 19 Pneumonia, Respiratory Failure S/p intubation, remains on pressors, CXR improving ETT adjusted Septic Shock, pressors decreasing Preserved EF FIO2 40%-50%, P5, adequate O2 sats, remains on ACVC HD tolerated Hyponatremia stable Anemia stable Seen earlier ID following On HD per Renal Past Medical History: COPD, CKD, Hypertension, Anemia Hypotension requiring pressors, in ICU Persistently elevated WCC Allergies: No Known Allergies Improving Pulmonary Status on HD Physical Exam Vital Signs Noted Sedated on ventilator WDWN, no distress HEENT: NCAT,moist mm Chest: Occasional rhonchi Heart: HS1, HS2, RRR Abdomen: SNTND, no masses Extremities: Well perfused, no edema INSPECTOR OPEN DIE: No focal signs, no seizures, sedated Impression: COVID-19 virus infection Pneumonia Respiratory failure on ventilator Volume overload improving - on HD Hypotension on pressors Cardiomegaly Lymphopenia Elevated AST COPD Chronic Kidney Disease - HD H/o Hypertension Worsening anemia Plan: Antibiotics per ID HD Pressors PRN ACVC - wean as tolerated once pressors reduced/off ABG PRN 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 Medications 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 Monitor cultures/viral studies PPX Hemodialysis per Renal Psychiatry following [facility] - [facility] requested for when available, [facility] - not available as yet Laboratory Tests Noted: CXR: Hypoventilatory exam, interstitial changes, cardiomegaly, improving infiltrates Subjective ROS Limited/Unobtainable: No Constitutional: Denies: fever Respiratory: Reports: dry cough, shortness of breath Gastrointestinal/Abdominal: Reports: diarrhea, other - colace was stopped Psychiatric: Reports: other - refuses labs Allergies: Coded Allergies: No Known Allergies (Unverified , 05/28/19) All Systems: reviewed and negative except above Labs noted Critical Care - Objective Last 24 Hour Vital Signs Date Time Temp Pulse Resp B/P (MAP) Pulse Ox O2 Delivery O2 Flow Rate FiO2 06/23/19 16:00 Mechanical Ventilator 06/23/19 16:00 30 06/23/19 16:00 20 123/54 Mechanical Ventilator 30 06/23/19 16:00 123/54 06/23/19 16:00 75 19 121/58 (79) 98 06/23/19 16:00 89 06/23/19 15:30 72 26 117/62 (80) 98 06/23/19 15:16 71 26 97 Mechanical Ventilator 30 78 28 30 06/23/19 15:00 22 115/55 Mechanical Ventilator 30 06/23/19 15:00 115/55 06/23/19 15:00 77 26 141/64 (89) 99 06/23/19 14:00 77 25 122/59 (80) 98 06/23/19 14:00 24 118/49 30 06/23/19 14:00 118/59 06/23/19 13:00 26 145/67 Mechanical Ventilator 30 06/23/19 13:00 145/67 06/23/19 13:00 94 12 145/67 (93) 96 06/23/19 12:30 83 26 126/63 (84) 99 06/23/19 12:00 30 06/23/19 12:00 98.3 82 26 127/63 (84) 98 06/23/19 12:00 25 127/63 Mechanical Ventilator 30 06/23/19 12:00 127/63 06/23/19 12:00 Mechanical Ventilator 06/23/19 12:00 91 06/23/19 11:30 90 13 123/58 (79) 97 06/23/19 11:03 85 26 95 Mechanical Ventilator 30 88 26 30 06/23/19 11:00 94 21 126/65 (85) 97 06/23/19 11:00 23 126/65 30 06/23/19 11:00 126/65 06/23/19 10:30 90 14 127/61 (83) 97 06/23/19 10:00 15 133/60 Mechanical Ventilator 30 06/23/19 10:00 133/60 06/23/19 10:00 106 21 133/60 (84) 94 06/23/19 09:52 30 06/23/19 09:30 88 26 108/61 (77) 99 06/23/19 09:00 81 26 98/53 (68) 100 06/23/19 09:00 26 98/53 Mechanical Ventilator 30 06/23/19 09:00 98/53 06/23/19 08:57 28 106/57 Mechanical Ventilator 40 06/23/19 08:30 91 23 133/63 (86) 100 06/23/19 08:00 104/55 5/13/20 08:00 30 06/23/19 08:00 Mechanical Ventilator 06/23/19 08:00 85 06/23/19 08:00 99.3 84 25 104/55 (71) 100 06/23/19 07:30 80 26 112/56 (74) 100 06/23/19 07:14 85 28 Mechanical Ventilator 40 40 06/23/19 07:00 83 24 107/61 (76) 100 06/23/19 07:00 107/61 06/23/19 06:49 86 26 06/23/19 06:30 82 26 106/57 (73) 100 06/23/19 06:00 80 26 99/56 (70) 100 06/23/19 06:00 106/57 06/23/19 05:30 84 25 95/54 (68) 100 06/23/19 05:00 26 116/62 Mechanical Ventilator 40 06/23/19 05:00 116/62 06/23/19 05:00 87 26 110/66 (81) 100 06/23/19 04:30 116 23 116/62 (80) 97 06/23/19 04:00 40 06/23/19 04:00 86 06/23/19 04:00 98.7 86 26 129/65 (86) 100 06/23/19 04:00 23 119/57 Mechanical Ventilator 40 06/23/19 04:00 119/57 06/23/19 04:00 Mechanical Ventilator 06/23/19 03:33 94 27 100 Mechanical Ventilator 40 97 27 40 06/23/19 03:30 95 8 150/79 (102) 100 06/23/19 03:00 12 154/96 Mechanical Ventilator 40 06/23/19 03:00 154/96 06/23/19 03:00 98 11 152/87 (108) 93 06/23/19 02:30 91 13 150/73 (98) 97 06/23/19 02:00 89 5 143/91 (108) 99 06/23/19 02:00 10 150/73 Mechanical Ventilator 40 06/23/19 02:00 150/73 06/23/19 01:30 86 14 134/82 (99) 100 06/23/19 01:00 23 104/56 Mechanical Ventilator 40 06/23/19 01:00 104/56 06/23/19 01:00 87 20 120/68 (85) 100 06/23/19 00:30 93 17 112/66 (81) 95 06/23/19 00:00 89 06/23/19 00:00 98.2 91 0 122/65 (84) 92 06/23/19 00:00 19 120/61 Mechanical Ventilator 40 06/23/19 00:00 120/61 06/23/19 00:00 Mechanical Ventilator 06/23/19 00:00 40 06/22/19 23:30 91 25 138/70 (92) 100 06/22/19 23:00 98 20 155/92 (113) 100 06/22/19 23:00 21 175/75 Mechanical Ventilator 40 06/22/19 23:00 175/75 06/22/19 22:37 102 26 100 Mechanical Ventilator 40 99 26 40 06/22/19 22:30 142 29 173/72 (105) 100 06/22/19 22:27 23 151/78 Mechanical Ventilator 40 06/22/19 22:00 112 22 138/69 (92) 98 06/22/19 22:00 18 151/78 Mechanical Ventilator 40 06/22/19 22:00 151/78 06/22/19 21:30 96 24 147/76 (99) 97 06/22/19 21:00 24 137/72 Mechanical Ventilator 40 06/22/19 21:00 137/72 06/22/19 21:00 87 26 124/68 (86) 96 06/22/19 20:30 91 16 143/68 (93) 98 06/22/19 20:00 87 14 141/79 (99) 98 06/22/19 20:00 Mechanical Ventilator 06/22/19 20:00 40 06/22/19 20:00 18 155/70 Mechanical Ventilator 40 06/22/19 20:00 155/70 06/22/19 20:00 85 06/22/19 19:30 98.7 113 22 172/78 (109) 99 06/22/19 19:27 80 28 100 Mechanical Ventilator 40 83 28 40 06/22/19 19:15 88 13 157/72 (100) 100 06/22/19 19:00 83 19 140/64 (89) 100 06/22/19 19:00 14 122/76 Mechanical Ventilator 40 5/12/20 19:00 157/72 06/22/19 18:30 74 26 125/57 (79) 100 06/22/19 18:00 76 26 122/60 (80) 100 06/22/19 18:00 118/59 06/22/19 17:30 100 21 117/68 (84) 100 Accucheck: 181 Critical Care - Subjective Condition: critical IV Access: central FI02: 30 Vent Support Breath Rate: 26 Vent Support Mode: AC Vent Tidal Volume: 500 Sputum Amount: Scant PEEP: 5.0 PIP: 29 Tube Feeding Amount: 35 I&O: Intake and Output 06/22/19 06/23/19 19:00 07:00 Intake Total 1114.90 ml 912.80 ml Output Total 2022 ml 10 ml Balance -907.10 ml 902.80 ml IV Total 634.90 ml 492.80 ml Tube Feeding 420 ml 420 ml Other 60 ml Output Urine Total 22 ml 10 ml Hemodialysis UF 2000 ml # Bowel Movements 1 1 ET-Tube: 7.5 ET Position: 26 Arturo Mckeon MD June 23, 2019 17:24
--- NOTE | 2019-06-23 20:41 | Diagnostic Imaging Report ---
Indication: ET tube readjusted. Check placement of endotracheal tube Technique: XRAY Chest 1v Comparison: 06/22/2019 Findings: Heart size and mediastinal contours are stable. Again there is interstitial and patchy bilateral airspace disease which is not significantly changed compared to the prior exam. Endotracheal tube is in satisfactory position with its tip below level of clavicles, approximately 3.4 cm above the re. A left subclavian central line has its tip in the region of the upper SVC. NG tube tip in the stomach. Osseous structures are stable. Impression: Satisfactory positioning of endotracheal tube. Additional support lines/tubes stable and satisfactory position. Interstitial and patchy bilateral airspace disease which may related to CHF and/or multifocal pneumonia not significantly changed.
--- NOTE | 2019-06-23 20:49 | Surgery Progress Note ---
Surgery Progress Note Subjective Procedure Performed Right femoral temporary hemodialysis catheter insertion Additional Comments ill appearing labs reviewed Objective Last 24 Hour Vital Signs Date Time Temp Pulse Resp B/P (MAP) Pulse Ox O2 Delivery O2 Flow Rate FiO2 06/23/19 19:12 86 26 30 06/23/19 19:00 20 104/58 Mechanical Ventilator 30 06/23/19 19:00 104/58 06/23/19 19:00 81 12 110/53 (72) 98 06/23/19 18:00 24 143/63 Mechanical Ventilator 30 06/23/19 18:00 143/63 06/23/19 18:00 80 24 104/58 (73) 99 06/23/19 17:15 90 25 143/63 (89) 96 06/23/19 17:00 98.9 88 26 124/55 (78) 95 06/23/19 17:00 24 115/55 Mechanical Ventilator 30 06/23/19 17:00 115/55 06/23/19 16:00 Mechanical Ventilator 06/23/19 16:00 30 06/23/19 16:00 20 123/54 Mechanical Ventilator 30 06/23/19 16:00 123/54 06/23/19 16:00 75 19 121/58 (79) 98 06/23/19 16:00 89 06/23/19 15:30 72 26 117/62 (80) 98 06/23/19 15:16 71 26 97 Mechanical Ventilator 30 78 28 30 06/23/19 15:00 22 115/55 Mechanical Ventilator 30 06/23/19 15:00 115/55 06/23/19 15:00 77 26 141/64 (89) 99 06/23/19 14:00 77 25 122/59 (80) 98 06/23/19 14:00 24 118/49 30 06/23/19 14:00 118/59 06/23/19 13:00 26 145/67 Mechanical Ventilator 30 06/23/19 13:00 145/67 06/23/19 13:00 94 12 145/67 (93) 96 06/23/19 12:30 83 26 126/63 (84) 99 06/23/19 12:00 30 06/23/19 12:00 98.3 82 26 127/63 (84) 98 06/23/19 12:00 25 127/63 Mechanical Ventilator 30 06/23/19 12:00 127/63 5/13/20 12:00 Mechanical Ventilator 06/23/19 12:00 91 06/23/19 11:30 90 13 123/58 (79) 97 06/23/19 11:03 85 26 95 Mechanical Ventilator 30 88 26 30 06/23/19 11:00 94 21 126/65 (85) 97 06/23/19 11:00 23 126/65 30 06/23/19 11:00 126/65 06/23/19 10:30 90 14 127/61 (83) 97 06/23/19 10:00 15 133/60 Mechanical Ventilator 30 06/23/19 10:00 133/60 06/23/19 10:00 106 21 133/60 (84) 94 06/23/19 09:52 30 06/23/19 09:30 88 26 108/61 (77) 99 06/23/19 09:00 81 26 98/53 (68) 100 06/23/19 09:00 26 98/53 Mechanical Ventilator 30 06/23/19 09:00 98/53 06/23/19 08:57 28 106/57 Mechanical Ventilator 40 06/23/19 08:30 91 23 133/63 (86) 100 06/23/19 08:00 104/55 06/23/19 08:00 30 06/23/19 08:00 Mechanical Ventilator 06/23/19 08:00 85 06/23/19 08:00 99.3 84 25 104/55 (71) 100 06/23/19 07:30 80 26 112/56 (74) 100 06/23/19 07:14 85 28 Mechanical Ventilator 40 40 06/23/19 07:00 83 24 107/61 (76) 100 06/23/19 07:00 107/61 06/23/19 06:49 86 26 06/23/19 06:30 82 26 106/57 (73) 100 06/23/19 06:00 80 26 99/56 (70) 100 06/23/19 06:00 106/57 06/23/19 05:30 84 25 95/54 (68) 100 06/23/19 05:00 26 116/62 Mechanical Ventilator 40 06/23/19 05:00 116/62 06/23/19 05:00 87 26 110/66 (81) 100 5/13/20 04:30 116 23 116/62 (80) 97 06/23/19 04:00 40 06/23/19 04:00 86 06/23/19 04:00 98.7 86 26 129/65 (86) 100 06/23/19 04:00 23 119/57 Mechanical Ventilator 40 06/23/19 04:00 119/57 06/23/19 04:00 Mechanical Ventilator 06/23/19 03:33 94 27 100 Mechanical Ventilator 40 97 27 40 06/23/19 03:30 95 8 150/79 (102) 100 06/23/19 03:00 12 154/96 Mechanical Ventilator 40 06/23/19 03:00 154/96 06/23/19 03:00 98 11 152/87 (108) 93 06/23/19 02:30 91 13 150/73 (98) 97 06/23/19 02:00 89 5 143/91 (108) 99 06/23/19 02:00 10 150/73 Mechanical Ventilator 40 06/23/19 02:00 150/73 06/23/19 01:30 86 14 134/82 (99) 100 06/23/19 01:00 23 104/56 Mechanical Ventilator 40 06/23/19 01:00 104/56 06/23/19 01:00 87 20 120/68 (85) 100 06/23/19 00:30 93 17 112/66 (81) 95 06/23/19 00:00 89 06/23/19 00:00 98.2 91 0 122/65 (84) 92 06/23/19 00:00 19 120/61 Mechanical Ventilator 40 06/23/19 00:00 120/61 06/23/19 00:00 Mechanical Ventilator 06/23/19 00:00 40 06/22/19 23:30 91 25 138/70 (92) 100 06/22/19 23:00 98 20 155/92 (113) 100 06/22/19 23:00 21 175/75 Mechanical Ventilator 40 06/22/19 23:00 175/75 06/22/19 22:37 102 26 100 Mechanical Ventilator 40 99 26 40 06/22/19 22:30 142 29 173/72 (105) 100 06/22/19 22:27 23 151/78 Mechanical Ventilator 40 06/22/19 22:00 112 22 138/69 (92) 98 06/22/19 22:00 18 151/78 Mechanical Ventilator 40 06/22/19 22:00 151/78 06/22/19 21:30 96 24 147/76 (99) 97 06/22/19 21:00 24 137/72 Mechanical Ventilator 40 06/22/19 21:00 137/72 06/22/19 21:00 87 26 124/68 (86) 96 I&O Intake and Output 06/22/19 06/23/19 19:00 07:00 Intake Total 1114.90 ml 912.80 ml Output Total 2022 ml 10 ml Balance -907.10 ml 902.80 ml IV Total 634.90 ml 492.80 ml Tube Feeding 420 ml 420 ml Other 60 ml Output Urine Total 22 ml 10 ml Hemodialysis UF 2000 ml # Bowel Movements 1 1 Dressing: other Wound: other Drains: other Cardiovascular: RSR Respiratory: decreased breath sounds Abdomen: soft, present bowel sounds Extremities: no cyanosis Laboratory Tests Test 06/23/19 04:13 06/23/19 08:27 White Blood Count 11.2 K/UL (4.8-10.8) H Red Blood Count 2.67 M/UL (4.70-6.10) L Hemoglobin 8.1 G/DL (14.2-18.0) L Hematocrit 25.0 % (42.0-52.0) L Mean Corpuscular Volume 94 FL (80-99) Mean Corpuscular Hemoglobin 30.2 PG (27.0-31.0) Mean Corpuscular Hemoglobin Concent 32.3 G/DL (32.0-36.0) Red Cell Distribution Width 18.6 % (11.6-14.8) H Platelet Count 251 K/UL (150-450) Mean Platelet Volume 7.8 FL (6.5-10.1) Neutrophils (%) (Auto) % (45.0-75.0) Lymphocytes (%) (Auto) % (20.0-45.0) Monocytes (%) (Auto) % (1.0-10.0) Eosinophils (%) (Auto) % (0.0-3.0) Basophils (%) (Auto) % (0.0-2.0) Differential Total Cells Counted 100 Neutrophils % (Manual) 91 % (45-75) H Lymphocytes % (Manual) 3 % (20-45) L Monocytes % (Manual) 4 % (1-10) Eosinophils % (Manual) 0 % (0-3) Basophils % (Manual) 1 % (0-2) Metamyelocytes % 1 % (0-0) H Band Neutrophils 0 % (0-8) Platelet Estimate Adequate Platelet Morphology Normal Hypochromasia 2+ Anisocytosis 2+ Sodium Level 133 MMOL/L (136-145) L Potassium Level 3.5 MMOL/L (3.5-5.1) Chloride Level 92 MMOL/L (98-107) L Carbon Dioxide Level 27 MMOL/L (21-32) Anion Gap 14 mmol/L (5-15) Blood Urea Nitrogen 50 mg/dL (7-18) H Creatinine 6.4 MG/DL (0.55-1.30) H Estimat Glomerular Filtration Rate 8.8 mL/min (>60) Glucose Level 210 MG/DL (74-106) H Uric Acid 3.9 MG/DL (2.6-7.2) Calcium Level 8.9 MG/DL (8.5-10.1) Phosphorus Level 5.5 MG/DL (2.5-4.9) H Magnesium Level 2.3 MG/DL (1.8-2.4) Total Bilirubin 0.4 MG/DL (0.2-1.0) Aspartate Amino Transf (AST/SGOT) 20 U/L (15-37) Alanine Aminotransferase (ALT/SGPT) 10 U/L (12-78) L Alkaline Phosphatase 84 U/L (46-116) Total Protein 7.7 G/DL (6.4-8.2) Albumin 1.8 G/DL (3.4-5.0) L Globulin 5.9 g/dL Albumin/Globulin Ratio 0.3 (1.0-2.7) L Arterial Blood pH 7.383 (7.350-7.450) Arterial Blood Partial Pressure CO2 40.4 mmHg (35.0-45.0) Arterial Blood Partial Pressure O2 112.3 mmHg (75.0-100.0) H Arterial Blood HCO3 23.5 mmol/L (22.0-26.0) Arterial Blood Oxygen Saturation 97.7 % (95-100) Arterial Blood Base Excess -1.4 (-2-2) Kosta Test Positive Plan Problems: (1) Suspected COVID-19 virus infection (2) HTN (hypertension) (3) CASSANDRA (acute kidney injury) Assessment & Plan: Needs urgent HD needs access patient okay and consented see note will follow with recs new line placed discussed with team and nephrology HD line functional when checked has TPA now please use appropriately Cathflo used again this flow during dialysis on 430 was low. Will monitor may need line change 5/ plan for HD as per renal may need to take fluid off with HD edema anasarca dressings saturated and changed will monitor (4) Anemia in chronic kidney disease (CKD) (5) Anemia (6) Renal failure (7) Suspected COVID-19 virus infection Assessment & Plan: Pt deconditioned and despite all skin preventions Pt noted to have developed several pressure injuries. . Stable dry eschar noted to clefts of R and L ears. No erythema noted . DTPI noted to L trochanter. Base of injury is maroon in colour with marginal erythema along borders. Partially opened DTPI Sacrum, R and L Buttocks. Base of wound is maroon with two small open wounds L sacrum and L buttocks. Pt has an APM/MOMO Mattress overlay and is being positioned with pillows as per tolerance and within protocols. Tx.Plan: Apply Cavilon Skin Barrier to both ears Daily and prn. Apply Moisture Barrier Paste to Sacrum,R and L Buttocks. Cover with Optifoam drsgs. Change every 3 days and PRN. Apply Cavilon Skin Barrier to R and L trochanter. Cover each site with Optifoam drsgs.Change every 7 days and PRN. Apply Cavilon Skin Barrier to both heels. Cover each heel with Optifoam drsg. Change every 7 days and prn. Off-load heels with pillow. Reposition at least every 2hours or as tolerated. APM/MOMO Mattress overlay. (8) COVID-19 Assessment & Plan: COVID + c diff negative febrile leukocytosis renal insufficiency see above cont resp care Rx as per ID worsening on vent support now cxr noted on pressors prognosis guarded repeat covid ++ weaning vent and pressors off slowly showing improvement Yaniv Mast June 23, 2019 20:49
[2019-06-23] MEDS: Dyna-Hex 2% Top Sol 2oz TOPIC SCH (21:08)
[2019-06-23] MEDS: Epoetin Alfa-EPBX(ESRD on dialysis)10,000 unit/ml vial SUBQ SCH (21:09)
--- NOTE | 2019-06-23 21:28 | General Progress Note ---
Assessment/Plan Problem List: (1) Anemia ICD Codes: D64.9 - Anemia, unspecified SNOMED: 943958204 (2) Renal failure ICD Codes: N19 - Unspecified kidney failure SNOMED: 22313125 (3) Suspected COVID-19 virus infection ICD Codes: R68.89 - Other general symptoms and signs SNOMED: 283628916 (4) HTN (hypertension) ICD Codes: I10 - Essential (primary) hypertension SNOMED: 78051835 (5) CASSANDRA (acute kidney injury) ICD Codes: N17.9 - Acute kidney failure, unspecified SNOMED: 8300954, 74006914 (6) Anemia in chronic kidney disease (CKD) ICD Codes: N18.9 - Chronic kidney disease, unspecified; D63.1 - Anemia in chronic kidney disease SNOMED: 611423772 (7) Suspected COVID-19 virus infection ICD Codes: R68.89 - Other general symptoms and signs SNOMED: 873683137 Status: unchanged Assessment/Plan: diaylsis renal failure lyte abnormlaity not improving lethargy pna covid positve resp failure sepsis hyponatrmia leukoytosis afebrile ams htn Subjective ROS Limited/Unobtainable: Yes Allergies: Coded Allergies: No Known Allergies (Unverified , 05/28/19) Objective Last 24 Hour Vital Signs Date Time Temp Pulse Resp B/P (MAP) Pulse Ox O2 Delivery O2 Flow Rate FiO2 06/23/19 21:00 84 7 150/63 (92) 100 06/23/19 20:30 79 15 147/66 (93) 100 06/23/19 20:00 84 06/23/19 20:00 76 10 147/85 (105) 100 06/23/19 20:00 30 06/23/19 20:00 Mechanical Ventilator 06/23/19 19:30 98.7 76 19 118/58 (78) 100 06/23/19 19:12 86 26 30 06/23/19 19:00 20 104/58 Mechanical Ventilator 30 06/23/19 19:00 104/58 06/23/19 19:00 81 12 110/53 (72) 98 06/23/19 18:00 24 143/63 Mechanical Ventilator 30 06/23/19 18:00 143/63 06/23/19 18:00 80 24 104/58 (73) 99 06/23/19 17:15 90 25 143/63 (89) 96 06/23/19 17:00 98.9 88 26 124/55 (78) 95 06/23/19 17:00 24 115/55 Mechanical Ventilator 30 06/23/19 17:00 115/55 06/23/19 16:00 Mechanical Ventilator 06/23/19 16:00 30 06/23/19 16:00 20 123/54 Mechanical Ventilator 30 06/23/19 16:00 123/54 06/23/19 16:00 75 19 121/58 (79) 98 06/23/19 16:00 89 06/23/19 15:30 72 26 117/62 (80) 98 06/23/19 15:16 71 26 97 Mechanical Ventilator 30 78 28 30 06/23/19 15:00 22 115/55 Mechanical Ventilator 30 06/23/19 15:00 115/55 06/23/19 15:00 77 26 141/64 (89) 99 06/23/19 14:00 77 25 122/59 (80) 98 06/23/19 14:00 24 118/49 30 06/23/19 14:00 118/59 06/23/19 13:00 26 145/67 Mechanical Ventilator 30 06/23/19 13:00 145/67 06/23/19 13:00 94 12 145/67 (93) 96 06/23/19 12:30 83 26 126/63 (84) 99 06/23/19 12:00 30 06/23/19 12:00 98.3 82 26 127/63 (84) 98 06/23/19 12:00 25 127/63 Mechanical Ventilator 30 06/23/19 12:00 127/63 06/23/19 12:00 Mechanical Ventilator 06/23/19 12:00 91 06/23/19 11:30 90 13 123/58 (79) 97 06/23/19 11:03 85 26 95 Mechanical Ventilator 30 88 26 30 06/23/19 11:00 94 21 126/65 (85) 97 06/23/19 11:00 23 126/65 30 06/23/19 11:00 126/65 06/23/19 10:30 90 14 127/61 (83) 97 06/23/19 10:00 15 133/60 Mechanical Ventilator 30 06/23/19 10:00 133/60 5/13/20 10:00 106 21 133/60 (84) 94 06/23/19 09:52 30 06/23/19 09:30 88 26 108/61 (77) 99 06/23/19 09:00 81 26 98/53 (68) 100 06/23/19 09:00 26 98/53 Mechanical Ventilator 30 06/23/19 09:00 98/53 06/23/19 08:57 28 106/57 Mechanical Ventilator 40 06/23/19 08:30 91 23 133/63 (86) 100 06/23/19 08:00 104/55 06/23/19 08:00 30 06/23/19 08:00 Mechanical Ventilator 06/23/19 08:00 85 06/23/19 08:00 99.3 84 25 104/55 (71) 100 06/23/19 07:30 80 26 112/56 (74) 100 06/23/19 07:14 85 28 Mechanical Ventilator 40 40 06/23/19 07:00 83 24 107/61 (76) 100 06/23/19 07:00 107/61 06/23/19 06:49 86 26 06/23/19 06:30 82 26 106/57 (73) 100 06/23/19 06:00 80 26 99/56 (70) 100 06/23/19 06:00 106/57 06/23/19 05:30 84 25 95/54 (68) 100 06/23/19 05:00 26 116/62 Mechanical Ventilator 40 06/23/19 05:00 116/62 06/23/19 05:00 87 26 110/66 (81) 100 06/23/19 04:30 116 23 116/62 (80) 97 06/23/19 04:00 40 06/23/19 04:00 86 06/23/19 04:00 98.7 86 26 129/65 (86) 100 06/23/19 04:00 23 119/57 Mechanical Ventilator 40 06/23/19 04:00 119/57 06/23/19 04:00 Mechanical Ventilator 06/23/19 03:33 94 27 100 Mechanical Ventilator 40 97 27 40 06/23/19 03:30 95 8 150/79 (102) 100 06/23/19 03:00 12 154/96 Mechanical Ventilator 40 06/23/19 03:00 154/96 06/23/19 03:00 98 11 152/87 (108) 93 06/23/19 02:30 91 13 150/73 (98) 97 06/23/19 02:00 89 5 143/91 (108) 99 06/23/19 02:00 10 150/73 Mechanical Ventilator 40 06/23/19 02:00 150/73 06/23/19 01:30 86 14 134/82 (99) 100 06/23/19 01:00 23 104/56 Mechanical Ventilator 40 06/23/19 01:00 104/56 06/23/19 01:00 87 20 120/68 (85) 100 06/23/19 00:30 93 17 112/66 (81) 95 06/23/19 00:00 89 06/23/19 00:00 98.2 91 0 122/65 (84) 92 06/23/19 00:00 19 120/61 Mechanical Ventilator 40 06/23/19 00:00 120/61 06/23/19 00:00 Mechanical Ventilator 06/23/19 00:00 40 06/22/19 23:30 91 25 138/70 (92) 100 06/22/19 23:00 98 20 155/92 (113) 100 06/22/19 23:00 21 175/75 Mechanical Ventilator 40 06/22/19 23:00 175/75 06/22/19 22:37 102 26 100 Mechanical Ventilator 40 99 26 40 06/22/19 22:30 142 29 173/72 (105) 100 06/22/19 22:27 23 151/78 Mechanical Ventilator 40 06/22/19 22:00 112 22 138/69 (92) 98 06/22/19 22:00 18 151/78 Mechanical Ventilator 40 06/22/19 22:00 151/78 06/22/19 21:30 96 24 147/76 (99) 97 Intake and Output 06/22/19 06/23/19 19:00 07:00 Intake Total 1114.90 ml 912.80 ml Output Total 2022 ml 10 ml Balance -907.10 ml 902.80 ml IV Total 634.90 ml 492.80 ml Tube Feeding 420 ml 420 ml Other 60 ml Output Urine Total 22 ml 10 ml Hemodialysis UF 2000 ml # Bowel Movements 1 1 Laboratory Tests 06/23/19 04:13: White Blood Count 11.2H, Red Blood Count 2.67L, Hemoglobin 8.1L, Hematocrit 25.0L, Mean Corpuscular Volume 94, Mean Corpuscular Hemoglobin 30.2, Mean Corpuscular Hemoglobin Concent 32.3, Red Cell Distribution Width 18.6H, Platelet Count 251, Mean Platelet Volume 7.8, Neutrophils (%) (Auto) , Lymphocytes (%) (Auto) , Monocytes (%) (Auto) , Eosinophils (%) (Auto) , Basophils (%) (Auto) , Differential Total Cells Counted 100, Neutrophils % ( Manual) 91H, Lymphocytes % (Manual) 3L, Monocytes % (Manual) 4, Eosinophils % ( Manual) 0, Basophils % (Manual) 1, Metamyelocytes % 1H, Band Neutrophils 0, Platelet Estimate Adequate, Platelet Morphology Normal, Hypochromasia 2+, Anisocytosis 2+, Sodium Level 133L, Potassium Level 3.5, Chloride Level 92L, Carbon Dioxide Level 27, Anion Gap 14, Blood Urea Nitrogen 50H, Creatinine 6.4H , Estimat Glomerular Filtration Rate 8.8, Glucose Level 210H, Uric Acid 3.9, Calcium Level 8.9, Phosphorus Level 5.5H, Magnesium Level 2.3, Total Bilirubin 0.4, Aspartate Amino Transf (AST/SGOT) 20, Alanine Aminotransferase (ALT/SGPT) 10L, Alkaline Phosphatase 84, Total Protein 7.7, Albumin 1.8L, Globulin 5.9, Albumin/Globulin Ratio 0.3L 06/23/19 08:27: Arterial Blood pH 7.383, Arterial Blood Partial Pressure CO2 40.4, Arterial Blood Partial Pressure O2 112.3H, Arterial Blood HCO3 23.5, Arterial Blood Oxygen Saturation 97.7, Arterial Blood Base Excess -1.4, Kosta Test Positive Height (Feet): 6 Height (Inches): 1.00 Weight (Pounds): 240 General Appearance: lethargic Karishma Mulligan MD June 23, 2019 21:28
[2019-06-23] MEDS: NOREPINEPHRINE BITARTRATE IV SCH ×3 (23:00)
[2019-06-23] MEDS: D5W IV SCH ×3 (23:00)
[2019-06-24] VITALS (44 sets, daily range): BP systolic 73–190; BP diastolic 45–114
--- NOTE | 2019-06-24 02:18 | Diagnostic Imaging Report ---
EXAM: XR Abdomen, 2 Views CLINICAL HISTORY: NGT TECHNIQUE: Frontal view of the abdomen/pelvis with upright view of the abdomen. COMPARISON: 06/23/2019 IMPRESSION: NG tube side port terminates in the GE junction. Recommend advancing 5 cm.
[2019-06-24] MEDS: Albuterol 90mcg Inhaler 8gm INH SCH ×6 (05:07→23:13)
[2019-06-24 05:39] LABS: HEMATOCRIT 25.9 % (42.0-52.0); HEMOGLOBIN 8.3 G/DL (14.2-18.0); MEAN CORPUSCULAR VOLUME 92 FL (80-99); PLATELET COUNT 255 K/UL (150-450); RED BLOOD COUNT 2.81 M/UL (4.70-6.10); RED CELL DISTRIBUTION WIDTH 17.7 % (11.6-14.8); WHITE BLOOD COUNT 11.8 K/UL (4.8-10.8)
[2019-06-24] MEDS: fentaNYL 2500mcg/NS 250ml IV SCH ×2 (06:00→15:08)
[2019-06-24] MEDS: Renvela 800mg Pkt NG SCH ×4 (06:00→23:42)
[2019-06-24] MEDS: NovoLOG Insulin Flexpen SUBQ SCH ×4 (06:17→23:42)
[2019-06-24 06:24] LABS: ALANINE AMINOTRANSFERASE 10 U/L (12-78); ALBUMIN 1.6 G/DL (3.4-5.0); ALBUMIN/GLOBULIN RATIO 0.3 (1.0-2.7); ALKALINE PHOSPHATASE 86 U/L (46-116); ANION GAP 15 mmol/L (5-15); ASPARTATE AMINO TRANSFERASE 20 U/L (15-37); BILIRUBIN,TOTAL 0.4 MG/DL (0.2-1.0); BLOOD UREA NITROGEN 61 mg/dL (7-18); CALCIUM 8.5 MG/DL (8.5-10.1); CARBON DIOXIDE 24 MMOL/L (21-32); CHLORIDE 91 MMOL/L (98-107); CREATININE 7.4 MG/DL (0.55-1.30); PHOSPHORUS 4.5 MG/DL (2.5-4.9); POTASSIUM 3.3 MMOL/L (3.5-5.1); SODIUM 130 MMOL/L (136-145)
--- NOTE | 2019-06-24 09:41 | Infectious Diseases Prog Note ---
Assessment/Plan Assessment/Plan IMPRESSION: 1. COVID19 pneumonia Positive: 05/27, 05/31 , 06/05, 06/09 ,06/17, 06/19 2. MRSA carrier. 3. Chronic kidney disease , end-stage renal disease. 4. COPD. 5. Hypertension. 6. Anemia. 7. Hypothyroidism. 8. Hyperlipidemia. 9. Major depression. 10. Leukocytosis 11. Hypotension 12. Hepatitis C 13. Hyperuricemia 14. Diarrhea 15. septic shock 16. Leukocytosis improving RECOMMENDATIONS: Observe off of antibiotic Finished hydroxychloroquine. Will f/u COVID19 test Subjective ROS Limited/Unobtainable: Yes Constitutional: Denies: fever Cardiovascular: Reports: other - off of Levophed Allergies: Coded Allergies: No Known Allergies (Unverified , 05/28/19) Objective Vital Signs Last 24 Hour Vital Signs Date Time Temp Pulse Resp B/P (MAP) Pulse Ox O2 Delivery O2 Flow Rate FiO2 06/24/19 07:10 120 30 97 Mechanical Ventilator 30 120 30 30 06/24/19 06:28 94 17 06/24/19 06:00 20 119/71 Mechanical Ventilator 30 06/24/19 06:00 17 119/71 Mechanical Ventilator 30 06/24/19 06:00 109 21 119/71 (87) 98 06/24/19 05:30 106 25 117/63 (81) 97 06/24/19 05:00 30 150/86 Mechanical Ventilator 30 06/24/19 05:00 120 25 150/86 (107) 97 06/24/19 04:30 127 29 181/94 (123) 95 06/24/19 04:00 Mechanical Ventilator 06/24/19 04:00 85 06/24/19 04:00 30 181/94 Mechanical Ventilator 30 06/24/19 04:00 30 06/24/19 04:00 97.8 84 26 136/71 (92) 100 06/24/19 03:37 99 26 30 06/24/19 03:30 80 26 137/66 (89) 100 06/24/19 03:00 20 137/66 Mechanical Ventilator 30 06/24/19 03:00 85 26 136/68 (90) 99 06/24/19 02:30 85 23 127/64 (85) 99 06/24/19 02:00 100 23 159/68 (98) 97 06/24/19 02:00 16 159/68 Mechanical Ventilator 30 06/24/19 01:30 87 17 116/61 (79) 99 06/24/19 01:00 95 16 113/57 (75) 99 06/24/19 01:00 16 113/57 Mechanical Ventilator 30 06/24/19 00:30 101 12 169/94 (119) 98 06/24/19 00:03 Mechanical Ventilator 06/24/19 00:00 102 06/24/19 00:00 97.8 89 16 113/72 (86) 98 06/24/19 00:00 16 113/72 Mechanical Ventilator 30 06/23/19 23:30 85 18 136/67 (90) 98 06/23/19 23:20 82 26 30 06/23/19 23:00 136/67 06/23/19 23:00 16 103/50 Mechanical Ventilator 30 06/23/19 23:00 76 16 103/50 (67) 100 06/23/19 22:30 76 16 112/56 (74) 100 06/23/19 22:00 78 16 128/60 (82) 98 06/23/19 22:00 17 128/60 Mechanical Ventilator 30 06/23/19 21:30 83 11 134/61 (85) 96 06/23/19 21:00 84 17 150/63 (92) 100 06/23/19 21:00 11 134/61 Mechanical Ventilator 30 06/23/19 21:00 134/61 06/23/19 20:30 79 15 147/66 (93) 100 06/23/19 20:00 84 06/23/19 20:00 15 126/62 Mechanical Ventilator 30 06/23/19 20:00 126/62 06/23/19 20:00 76 10 147/85 (105) 100 06/23/19 20:00 30 06/23/19 20:00 Mechanical Ventilator 06/23/19 19:30 98.7 76 19 118/58 (78) 100 06/23/19 19:12 86 26 30 06/23/19 19:00 20 104/58 Mechanical Ventilator 30 06/23/19 19:00 104/58 06/23/19 19:00 81 12 110/53 (72) 98 06/23/19 18:00 24 143/63 Mechanical Ventilator 30 06/23/19 18:00 143/63 06/23/19 18:00 80 24 104/58 (73) 99 06/23/19 17:15 90 25 143/63 (89) 96 06/23/19 17:00 98.9 88 26 124/55 (78) 95 06/23/19 17:00 24 115/55 Mechanical Ventilator 30 06/23/19 17:00 115/55 06/23/19 16:00 Mechanical Ventilator 06/23/19 16:00 30 06/23/19 16:00 20 123/54 Mechanical Ventilator 30 06/23/19 16:00 123/54 06/23/19 16:00 75 19 121/58 (79) 98 06/23/19 16:00 89 06/23/19 15:30 72 26 117/62 (80) 98 06/23/19 15:16 71 26 97 Mechanical Ventilator 30 78 28 30 06/23/19 15:00 22 115/55 Mechanical Ventilator 30 06/23/19 15:00 115/55 06/23/19 15:00 77 26 141/64 (89) 99 06/23/19 14:00 77 25 122/59 (80) 98 06/23/19 14:00 24 118/49 30 06/23/19 14:00 118/59 06/23/19 13:00 26 145/67 Mechanical Ventilator 30 06/23/19 13:00 145/67 06/23/19 13:00 94 12 145/67 (93) 96 06/23/19 12:30 83 26 126/63 (84) 99 06/23/19 12:00 30 06/23/19 12:00 98.3 82 26 127/63 (84) 98 06/23/19 12:00 25 127/63 Mechanical Ventilator 30 06/23/19 12:00 127/63 06/23/19 12:00 Mechanical Ventilator 06/23/19 12:00 91 06/23/19 11:30 90 13 123/58 (79) 97 06/23/19 11:03 85 26 95 Mechanical Ventilator 30 88 26 30 06/23/19 11:00 94 21 126/65 (85) 97 06/23/19 11:00 23 126/65 30 06/23/19 11:00 126/65 06/23/19 10:30 90 14 127/61 (83) 97 06/23/19 10:00 15 133/60 Mechanical Ventilator 30 06/23/19 10:00 133/60 06/23/19 10:00 106 21 133/60 (84) 94 06/23/19 09:52 30 Height (Feet): 6 Height (Inches): 1.00 Weight (Pounds): 244 HEENT: other - orally intubated Cardiovascular: tachycardia, other - Subclavian line , Femoral HD line Abdomen: soft, non tender, other - orogastric tube Extremities: other - edema Neurologic/Psychiatric: other - sedated Laboratory Tests Test 06/24/19 05:23 White Blood Count 11.8 K/UL (4.8-10.8) H Red Blood Count 2.81 M/UL (4.70-6.10) L Hemoglobin 8.3 G/DL (14.2-18.0) L Hematocrit 25.9 % (42.0-52.0) L Mean Corpuscular Volume 92 FL (80-99) Mean Corpuscular Hemoglobin 29.5 PG (27.0-31.0) Mean Corpuscular Hemoglobin Concent 31.9 G/DL (32.0-36.0) L Red Cell Distribution Width 17.7 % (11.6-14.8) H Platelet Count 255 K/UL (150-450) Mean Platelet Volume 7.3 FL (6.5-10.1) Neutrophils (%) (Auto) % (45.0-75.0) Lymphocytes (%) (Auto) % (20.0-45.0) Monocytes (%) (Auto) % (1.0-10.0) Eosinophils (%) (Auto) % (0.0-3.0) Basophils (%) (Auto) % (0.0-2.0) Differential Total Cells Counted 100 Neutrophils % (Manual) 90 % (45-75) H Lymphocytes % (Manual) 6 % (20-45) L Monocytes % (Manual) 4 % (1-10) Eosinophils % (Manual) 0 % (0-3) Basophils % (Manual) 0 % (0-2) Band Neutrophils 0 % (0-8) Platelet Estimate Adequate Platelet Morphology Normal Hypochromasia 2+ Anisocytosis 2+ Sodium Level 130 MMOL/L (136-145) L Potassium Level 3.3 MMOL/L (3.5-5.1) L Chloride Level 91 MMOL/L (98-107) L Carbon Dioxide Level 24 MMOL/L (21-32) Anion Gap 15 mmol/L (5-15) Blood Urea Nitrogen 61 mg/dL (7-18) H Creatinine 7.4 MG/DL (0.55-1.30) H Estimat Glomerular Filtration Rate 7.4 mL/min (>60) Glucose Level 212 MG/DL (74-106) H Calcium Level 8.5 MG/DL (8.5-10.1) Phosphorus Level 4.5 MG/DL (2.5-4.9) Magnesium Level 2.4 MG/DL (1.8-2.4) Total Bilirubin 0.4 MG/DL (0.2-1.0) Aspartate Amino Transf (AST/SGOT) 20 U/L (15-37) Alanine Aminotransferase (ALT/SGPT) 10 U/L (12-78) L Alkaline Phosphatase 86 U/L (46-116) C-Reactive Protein, Quantitative 17.9 mg/dL (0.00-0.90) H Total Protein 7.2 G/DL (6.4-8.2) Albumin 1.6 G/DL (3.4-5.0) L Globulin 5.6 g/dL Albumin/Globulin Ratio 0.3 (1.0-2.7) L Current Medications Medications (Trade) Dose Ordered Sig/Anthony Route PRN Reason Start Time Stop Time Status Last Admin Dose Admin Acetaminophen (Tylenol) 650 mg Q4H PRN NG Temp >100.5 06/13/19 11:00 07/13/19 10:59 06/20/19 17:38 Albuterol Sulfate (Proventil MDI) 2 puff Q4HRT INH 06/06/19 23:00 08/30/19 18:59 06/24/19 07:10 Chlorhexidine Gluconate (Michelle-Hex 2%) 1 applic DAILY@1999 TOPIC 06/07/19 20:00 09/05/19 19:59 06/23/19 21:08 Dextrose (Dextrose 50%) 25 ml Q30M PRN IV Hypoglycemia 06/20/19 19:30 09/18/19 19:29 Dextrose (Dextrose 50%) 50 ml Q30M PRN IV Hypoglycemia 06/20/19 19:30 09/18/19 19:29 Docusate Sodium (Colace) 100 mg THREE TIMES A DAY NG 06/07/19 13:00 07/07/19 12:59 06/23/19 17:10 Dopamine HCl/ Dextrose 250 ml @ 0 mls/hr Q24H PRN IV For hypotension 06/13/19 08:15 09/11/19 08:14 Enoxaparin Sodium (Lovenox) 30 mg DAILY SUBQ 06/07/19 09:00 08/27/19 08:59 06/23/19 08:54 Epoetin Aftab (Epoetin Aftab(ESRD on dialysis)) 10,000 unit SUBQ 06/07/19 21:00 08/31/19 20:59 06/23/19 21:09 Fentanyl Citrate 250 ml @ 0 mls/hr Q24H IV 06/24/19 06:00 09/22/19 05:59 Hydralazine HCl (Apresoline) 10 mg Q4H PRN IV Blood pressure over 160 systol 06/07/19 10:15 09/05/19 10:14 Insulin Aspart (NovoLOG) EVERY 6 HOURS SUBQ 06/21/19 00:00 09/19/19 00:00 06/24/19 06:17 Metoclopramide HCl (Reglan) 5 mg Q8H PRN IVP Nausea & Vomiting 06/18/19 12:00 07/18/19 11:59 06/19/19 00:50 Midodrine (Pro-Amatine) 10 mg THREE TIMES A DAY NG 06/09/19 13:00 09/07/19 12:59 06/23/19 17:10 Norepinephrine Bitartrate 8 mg/ Dextrose 283 ml @ 0 mls/hr Q24H IV 06/23/19 23:00 07/23/19 22:59 Pantoprazole (Protonix) 40 mg DAILY IVP 06/19/19 09:00 07/19/19 08:59 06/23/19 08:54 Sevelamer Carbonate (Renvela) 1,600 mg Q6HR NG 06/14/19 12:00 09/05/19 12:59 06/23/19 23:50 Ted Leyva MD June 24, 2019 09:41
[2019-06-24] MEDS: D5W IV SCH ×3 (10:00)
[2019-06-24] MEDS: Dyna-Hex 2% Top Sol 2oz TOPIC SCH ×2 (10:00→20:55)
[2019-06-24] MEDS: NOREPINEPHRINE BITARTRATE IV SCH ×3 (10:00)
[2019-06-24] MEDS: Pantoprazole Inj IVP SCH (10:11)
[2019-06-24] MEDS: Docusate 100mg/10ml Liq NG SCH ×3 (10:12→18:29)
[2019-06-24] MEDS: Enoxaparin 30mg Inj SUBQ SCH (10:12)
[2019-06-24] MEDS: Midodrine 10mg tab NG SCH ×3 (10:12→18:29)
--- NOTE | 2019-06-24 10:24 | General Progress Note ---
Assessment/Plan Status: unchanged Assessment/Plan: 1. Diabetes. 2. Hypertension. 3. Coronary artery disease. 4. COPD. 5. Psychiatric disorder with schizophrenia. 6. History of hepatitis C. 7. HLP. 8. Chronic kidney disease, now with acute renal failure. 9. Anemia. 10. Hypothyroidism. 11. Spinal stenosis. 12. Constipation. 13. GERD. 14. COVID positive HD per nephrology tolerating TF recent labs and notes reviewed TF nephro at 35 cc and tolerated stable H&H will fu Subjective ROS Limited/Unobtainable: No Allergies: Coded Allergies: No Known Allergies (Unverified , 05/28/19) Objective Last 24 Hour Vital Signs Date Time Temp Pulse Resp B/P (MAP) Pulse Ox O2 Delivery O2 Flow Rate FiO2 06/24/19 07:10 120 30 97 Mechanical Ventilator 30 120 30 30 06/24/19 06:28 94 17 06/24/19 06:00 20 119/71 Mechanical Ventilator 30 06/24/19 06:00 17 119/71 Mechanical Ventilator 30 06/24/19 06:00 109 21 119/71 (87) 98 06/24/19 05:30 106 25 117/63 (81) 97 06/24/19 05:00 30 150/86 Mechanical Ventilator 30 06/24/19 05:00 120 25 150/86 (107) 97 06/24/19 04:30 127 29 181/94 (123) 95 06/24/19 04:00 Mechanical Ventilator 06/24/19 04:00 85 06/24/19 04:00 30 181/94 Mechanical Ventilator 30 06/24/19 04:00 30 06/24/19 04:00 97.8 84 26 136/71 (92) 100 06/24/19 03:37 99 26 30 06/24/19 03:30 80 26 137/66 (89) 100 06/24/19 03:00 20 137/66 Mechanical Ventilator 30 06/24/19 03:00 85 26 136/68 (90) 99 06/24/19 02:30 85 23 127/64 (85) 99 06/24/19 02:00 100 23 159/68 (98) 97 06/24/19 02:00 16 159/68 Mechanical Ventilator 30 06/24/19 01:30 87 17 116/61 (79) 99 06/24/19 01:00 95 16 113/57 (75) 99 06/24/19 01:00 16 113/57 Mechanical Ventilator 30 06/24/19 00:30 101 12 169/94 (119) 98 06/24/19 00:03 Mechanical Ventilator 06/24/19 00:00 102 06/24/19 00:00 97.8 89 16 113/72 (86) 98 06/24/19 00:00 16 113/72 Mechanical Ventilator 30 06/23/19 23:30 85 18 136/67 (90) 98 06/23/19 23:20 82 26 30 06/23/19 23:00 136/67 06/23/19 23:00 16 103/50 Mechanical Ventilator 30 06/23/19 23:00 76 16 103/50 (67) 100 06/23/19 22:30 76 16 112/56 (74) 100 06/23/19 22:00 78 16 128/60 (82) 98 06/23/19 22:00 17 128/60 Mechanical Ventilator 30 06/23/19 21:30 83 11 134/61 (85) 96 06/23/19 21:00 84 17 150/63 (92) 100 06/23/19 21:00 11 134/61 Mechanical Ventilator 30 06/23/19 21:00 134/61 06/23/19 20:30 79 15 147/66 (93) 100 06/23/19 20:00 84 06/23/19 20:00 15 126/62 Mechanical Ventilator 30 06/23/19 20:00 126/62 06/23/19 20:00 76 10 147/85 (105) 100 06/23/19 20:00 30 06/23/19 20:00 Mechanical Ventilator 06/23/19 19:30 98.7 76 19 118/58 (78) 100 06/23/19 19:12 86 26 30 06/23/19 19:00 20 104/58 Mechanical Ventilator 30 06/23/19 19:00 104/58 06/23/19 19:00 81 12 110/53 (72) 98 06/23/19 18:00 24 143/63 Mechanical Ventilator 30 06/23/19 18:00 143/63 06/23/19 18:00 80 24 104/58 (73) 99 06/23/19 17:15 90 25 143/63 (89) 96 06/23/19 17:00 98.9 88 26 124/55 (78) 95 06/23/19 17:00 24 115/55 Mechanical Ventilator 30 06/23/19 17:00 115/55 06/23/19 16:00 Mechanical Ventilator 06/23/19 16:00 30 06/23/19 16:00 20 123/54 Mechanical Ventilator 30 06/23/19 16:00 123/54 06/23/19 16:00 75 19 121/58 (79) 98 06/23/19 16:00 89 06/23/19 15:30 72 26 117/62 (80) 98 06/23/19 15:16 71 26 97 Mechanical Ventilator 30 78 28 30 06/23/19 15:00 22 115/55 Mechanical Ventilator 30 06/23/19 15:00 115/55 06/23/19 15:00 77 26 141/64 (89) 99 06/23/19 14:00 77 25 122/59 (80) 98 06/23/19 14:00 24 118/49 30 06/23/19 14:00 118/59 06/23/19 13:00 26 145/67 Mechanical Ventilator 30 06/23/19 13:00 145/67 06/23/19 13:00 94 12 145/67 (93) 96 06/23/19 12:30 83 26 126/63 (84) 99 06/23/19 12:00 30 06/23/19 12:00 98.3 82 26 127/63 (84) 98 06/23/19 12:00 25 127/63 Mechanical Ventilator 30 06/23/19 12:00 127/63 06/23/19 12:00 Mechanical Ventilator 06/23/19 12:00 91 06/23/19 11:30 90 13 123/58 (79) 97 06/23/19 11:03 85 26 95 Mechanical Ventilator 30 88 26 30 06/23/19 11:00 94 21 126/65 (85) 97 06/23/19 11:00 23 126/65 30 06/23/19 11:00 126/65 06/23/19 10:30 90 14 127/61 (83) 97 Intake and Output 06/23/19 06/24/19 19:00 07:00 Intake Total 707.96 ml 287.12 ml Output Total 0 ml 0 ml Balance 707.96 ml 287.12 ml Free Water 150 ml IV Total 137.96 ml 82.12 ml Tube Feeding 420 ml 175 ml Other 30 ml Output Urine Total 0 ml 0 ml # Bowel Movements 2 Laboratory Tests 06/24/19 05:23: White Blood Count 11.8H, Red Blood Count 2.81L, Hemoglobin 8.3L, Hematocrit 25.9L, Mean Corpuscular Volume 92, Mean Corpuscular Hemoglobin 29.5, Mean Corpuscular Hemoglobin Concent 31.9L, Red Cell Distribution Width 17.7H, Platelet Count 255, Mean Platelet Volume 7.3, Neutrophils (%) (Auto) , Lymphocytes (%) (Auto) , Monocytes (%) (Auto) , Eosinophils (%) (Auto) , Basophils (%) (Auto) , Differential Total Cells Counted 100, Neutrophils % ( Manual) 90H, Lymphocytes % (Manual) 6L, Monocytes % (Manual) 4, Eosinophils % ( Manual) 0, Basophils % (Manual) 0, Band Neutrophils 0, Platelet Estimate Adequate, Platelet Morphology Normal, Hypochromasia 2+, Anisocytosis 2+, Sodium Level 130L, Potassium Level 3.3L, Chloride Level 91L, Carbon Dioxide Level 24, Anion Gap 15, Blood Urea Nitrogen 61H, Creatinine 7.4H, Estimat Glomerular Filtration Rate 7.4, Glucose Level 212H, Calcium Level 8.5, Phosphorus Level 4.5 , Magnesium Level 2.4, Total Bilirubin 0.4, Aspartate Amino Transf (AST/SGOT) 20 , Alanine Aminotransferase (ALT/SGPT) 10L, Alkaline Phosphatase 86, C-Reactive Protein, Quantitative 17.9H, Total Protein 7.2, Albumin 1.6L, Globulin 5.6, Albumin/Globulin Ratio 0.3L Height (Feet): 6 Height (Inches): 1.00 Weight (Pounds): 244 General Appearance: lethargic EENT: normal ENT inspection Neck: supple Cardiovascular: tachycardia Respiratory/Chest: decreased breath sounds Abdomen: soft, hypoactive bowel sounds Extremities: non-tender Marito Ramires MD June 24, 2019 10:24
--- NOTE | 2019-06-24 13:36 | Nephrology Progress Note ---
Assessment/Plan Problem List: (1) CASSANDRA (acute kidney injury) (2) Anemia in chronic kidney disease (CKD) (3) HTN (hypertension) (4) COVID-19 Assessment Acute renal failure most likely superimposed on chronic kidney disease Suspected COVID-19 virus infection Possible Pneumonia, lymphopenia, elevated AST Cardiomegaly, possible CHF COPD Hypertension Anemia, most likely related to chronic kidney disease Plan June 14: Due dialysis today Status: Remains intubated on ventilator June 22: Status unchanged Dialyzed yesterday and due for dialysis tomorrow Serum sodium stable today June 21 Remains intubated on ventilator Due dialysis today Emphasized high sodium bath for dialysis June 20: Remains intubated on ventilator Dialyzed June 19 next dialysis June 21 Serum sodium 128, will give 250 cc 3% saline Remains full code Discussed with RN Iron panel ordered June 19: Discussed with RN. Patient due for dialysis today. Continue pulmonary support. Remains full code. June 18: Patient dialyzed yesterday June 17 Serum sodium improved but still low Arrange for dialysis tomorrow June 19 Continue per consultants June 8: Due for dialysis today Today's lab reviewed, low serum sodium noted, Emphasized on high sodium bath to dialysis nurse Discussed with SHANIQUE Yuen June 7: Dialyzed yesterday Remains intubated Labs reviewed, serum sodium 131 Plan to dialyze tomorrow June 17 with high sodium bath Discussed with SHANIQUE Yuen June 6: Due for dialysis today Labs reviewed Discussed with RN Transfuse 1 unit of packed RBCs today for low hemoglobin of 7.1 June 5: Blood pressure well maintained Receive dialysis June 13 next hemodialysis June 15June 4: Discussed with RN in ICU Patient did not receive proper dialysis yesterday due to dialysis catheter malfunction Catheter to be adjusted today and dialyzed to be resumed today Continue per consultants Positive for COVID 28 June 2: Patient now intubated on mechanical ventilation Discussed with SHANIQUE Yuen, today June 12 Patient received dialysis yesterday June 10 next hemodialysis June 12 Blood pressure better maintained Today's labs reviewed Continue per consultants Previously patient received dialysis last evening June 05, next dialysis June 07 which was incomplete due to patient's hypotension Will start on midodrine for blood pressure support. Meanwhile continue other pressors as needed Previously Patient is doing poorly, septic, white blood cells are rising, Hypotension somewhat improved We will keep n.p.o. , NG tube for medications, and change medication to IV as needed Patient remains full code Monitor vancomycin level Previously: Patient pulled out his femoral catheter yesterday June 03 which was reinserted by Dr. Mast Patient scheduled for dialysis again June 04, which again was not done due to dialysis nurse citing catheter malfunction Meanwhile continue management per ID, pulmonary , and psych. Meanwhile white blood cell count is rising. Patient blood pressure borderline low. Will check ABG Previously May 31 : I believe patient need dialysis treatment He however needs to competency assessment if can make decisions or not I will communicate with Dr. Mulligan Previously: Per pulmonary and ID advice Adjust blood pressure medication Renal diet Anemia work-up 2D echocardiogram refused Kidney ultrasound refused Jules catheter Urine studies Per orders Subjective ROS Limited/Unobtainable: Yes Objective Objective Last 24 Hour Vital Signs Date Time Temp Pulse Resp B/P (MAP) Pulse Ox O2 Delivery O2 Flow Rate FiO2 06/24/19 11:30 84 0 127/64 (85) 100 06/24/19 11:10 83 26 100 Mechanical Ventilator 30 83 26 30 06/24/19 11:00 84 6 117/59 (78) 100 06/24/19 10:30 95 15 100/71 (81) 99 06/24/19 10:00 84 23 77/51 (60) 99 06/24/19 09:30 91 24 73/47 (56) 97 06/24/19 09:00 101 21 77/45 (56) 97 06/24/19 08:30 136 20 122/61 (81) 97 06/24/19 08:00 Mechanical Ventilator 06/24/19 08:00 97.9 155 28 190/97 (128) 89 06/24/19 08:00 30 06/24/19 07:30 102 24 149/114 (126) 96 06/24/19 07:10 120 30 97 Mechanical Ventilator 30 120 30 30 06/24/19 07:00 96 26 96/57 (70) 98 06/24/19 06:28 94 17 06/24/19 06:00 20 119/71 Mechanical Ventilator 30 06/24/19 06:00 17 119/71 Mechanical Ventilator 30 06/24/19 06:00 109 21 119/71 (87) 98 06/24/19 05:30 106 25 117/63 (81) 97 06/24/19 05:00 30 150/86 Mechanical Ventilator 30 06/24/19 05:00 120 25 150/86 (107) 97 06/24/19 04:30 127 29 181/94 (123) 95 06/24/19 04:00 Mechanical Ventilator 06/24/19 04:00 85 06/24/19 04:00 30 181/94 Mechanical Ventilator 30 06/24/19 04:00 30 06/24/19 04:00 97.8 84 26 136/71 (92) 100 06/24/19 03:37 99 26 30 06/24/19 03:30 80 26 137/66 (89) 100 06/24/19 03:00 20 137/66 Mechanical Ventilator 30 06/24/19 03:00 85 26 136/68 (90) 99 06/24/19 02:30 85 23 127/64 (85) 99 06/24/19 02:00 100 23 159/68 (98) 97 06/24/19 02:00 16 159/68 Mechanical Ventilator 30 06/24/19 01:30 87 17 116/61 (79) 99 06/24/19 01:00 95 16 113/57 (75) 99 06/24/19 01:00 16 113/57 Mechanical Ventilator 30 06/24/19 00:30 101 12 169/94 (119) 98 06/24/19 00:03 Mechanical Ventilator 06/24/19 00:00 102 06/24/19 00:00 97.8 89 16 113/72 (86) 98 06/24/19 00:00 16 113/72 Mechanical Ventilator 30 06/23/19 23:30 85 18 136/67 (90) 98 06/23/19 23:20 82 26 30 06/23/19 23:00 136/67 06/23/19 23:00 16 103/50 Mechanical Ventilator 30 06/23/19 23:00 76 16 103/50 (67) 100 06/23/19 22:30 76 16 112/56 (74) 100 06/23/19 22:00 78 16 128/60 (82) 98 06/23/19 22:00 17 128/60 Mechanical Ventilator 30 06/23/19 21:30 83 11 134/61 (85) 96 06/23/19 21:00 84 17 150/63 (92) 100 06/23/19 21:00 11 134/61 Mechanical Ventilator 30 06/23/19 21:00 134/61 06/23/19 20:30 79 15 147/66 (93) 100 06/23/19 20:00 84 06/23/19 20:00 15 126/62 Mechanical Ventilator 30 06/23/19 20:00 126/62 06/23/19 20:00 76 10 147/85 (105) 100 06/23/19 20:00 30 06/23/19 20:00 Mechanical Ventilator 06/23/19 19:30 98.7 76 19 118/58 (78) 100 06/23/19 19:12 86 26 30 06/23/19 19:00 20 104/58 Mechanical Ventilator 30 06/23/19 19:00 104/58 06/23/19 19:00 81 12 110/53 (72) 98 06/23/19 18:00 24 143/63 Mechanical Ventilator 30 06/23/19 18:00 143/63 06/23/19 18:00 80 24 104/58 (73) 99 06/23/19 17:15 90 25 143/63 (89) 96 06/23/19 17:00 98.9 88 26 124/55 (78) 95 06/23/19 17:00 24 115/55 Mechanical Ventilator 30 06/23/19 17:00 115/55 06/23/19 16:00 Mechanical Ventilator 06/23/19 16:00 30 06/23/19 16:00 20 123/54 Mechanical Ventilator 30 06/23/19 16:00 123/54 06/23/19 16:00 75 19 121/58 (79) 98 06/23/19 16:00 89 06/23/19 15:30 72 26 117/62 (80) 98 06/23/19 15:16 71 26 97 Mechanical Ventilator 30 78 28 30 06/23/19 15:00 22 115/55 Mechanical Ventilator 30 06/23/19 15:00 115/55 06/23/19 15:00 77 26 141/64 (89) 99 06/23/19 14:00 77 25 122/59 (80) 98 06/23/19 14:00 24 118/49 30 06/23/19 14:00 118/59 Intake and Output 06/23/19 06/24/19 19:00 07:00 Intake Total 707.96 ml 287.12 ml Output Total 0 ml 0 ml Balance 707.96 ml 287.12 ml Free Water 150 ml IV Total 137.96 ml 82.12 ml Tube Feeding 420 ml 175 ml Other 30 ml Output Urine Total 0 ml 0 ml # Bowel Movements 2 Laboratory Tests 06/24/19 05:23: White Blood Count 11.8H, Red Blood Count 2.81L, Hemoglobin 8.3L, Hematocrit 25.9L, Mean Corpuscular Volume 92, Mean Corpuscular Hemoglobin 29.5, Mean Corpuscular Hemoglobin Concent 31.9L, Red Cell Distribution Width 17.7H, Platelet Count 255, Mean Platelet Volume 7.3, Neutrophils (%) (Auto) , Lymphocytes (%) (Auto) , Monocytes (%) (Auto) , Eosinophils (%) (Auto) , Basophils (%) (Auto) , Differential Total Cells Counted 100, Neutrophils % ( Manual) 90H, Lymphocytes % (Manual) 6L, Monocytes % (Manual) 4, Eosinophils % ( Manual) 0, Basophils % (Manual) 0, Band Neutrophils 0, Platelet Estimate Adequate, Platelet Morphology Normal, Hypochromasia 2+, Anisocytosis 2+, Sodium Level 130L, Potassium Level 3.3L, Chloride Level 91L, Carbon Dioxide Level 24, Anion Gap 15, Blood Urea Nitrogen 61H, Creatinine 7.4H, Estimat Glomerular Filtration Rate 7.4, Glucose Level 212H, Calcium Level 8.5, Phosphorus Level 4.5 , Magnesium Level 2.4, Total Bilirubin 0.4, Aspartate Amino Transf (AST/SGOT) 20 , Alanine Aminotransferase (ALT/SGPT) 10L, Alkaline Phosphatase 86, C-Reactive Protein, Quantitative 17.9H, Total Protein 7.2, Albumin 1.6L, Globulin 5.6, Albumin/Globulin Ratio 0.3L Height (Feet): 6 Height (Inches): 1.00 Weight (Pounds): 244 General Appearance: no apparent distress EENT: other - Intubated on ventilator Cardiovascular: tachycardia Respiratory/Chest: decreased breath sounds Abdomen: soft Objective No change Mic Cole MD June 24, 2019 13:36
--- NOTE | 2019-06-24 14:16 | Cardiac Electrophysiology PN ---
Assessment/Plan Assessment/Plan 1. Elevated troponin. Troponin on May 27 and May 30 were negative; however , on June 01, it was elevated at 0.074. Repeat 0.05. Likely due to renal failure. On Aspirin. EF 60%. 2. Septic shock. On Levo 4 mc and iv ABx 3. ESRD, on hemodialysis per Dr. Cole. 4. Respiratory failure due to COVID-19 positive pneumonia. On the Vent with 30% Fio2. Fu by Dr. Mckeon. 5. MRSA carrier. 6. COPD. 7. Anemia. 8. Depression. 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 Off Levo since 1 am but after fentanyl dropped to 60s and Levophed was resumed at 4 [address] In [address]. Is Covid positive x 3. HD pending today . In SR Objective Last 24 Hour Vital Signs Date Time Temp Pulse Resp B/P (MAP) Pulse Ox O2 Delivery O2 Flow Rate FiO2 06/24/19 12:00 91 17 139/75 (96) 100 06/24/19 12:00 94 06/24/19 11:30 84 0 127/64 (85) 100 06/24/19 11:10 83 26 100 Mechanical Ventilator 30 83 26 30 06/24/19 11:00 84 6 117/59 (78) 100 06/24/19 10:30 95 15 100/71 (81) 99 06/24/19 10:00 84 23 77/51 (60) 99 06/24/19 09:30 91 24 73/47 (56) 97 06/24/19 09:00 101 21 77/45 (56) 97 06/24/19 08:30 136 20 122/61 (81) 97 06/24/19 08:00 Mechanical Ventilator 06/24/19 08:00 85 06/24/19 08:00 97.9 155 28 190/97 (128) 89 06/24/19 08:00 30 06/24/19 07:30 102 24 149/114 (126) 96 06/24/19 07:10 120 30 97 Mechanical Ventilator 30 120 30 30 06/24/19 07:00 96 26 96/57 (70) 98 06/24/19 06:28 94 17 06/24/19 06:00 20 119/71 Mechanical Ventilator 30 06/24/19 06:00 17 119/71 Mechanical Ventilator 30 06/24/19 06:00 109 21 119/71 (87) 98 06/24/19 05:30 106 25 117/63 (81) 97 06/24/19 05:00 30 150/86 Mechanical Ventilator 30 06/24/19 05:00 120 25 150/86 (107) 97 06/24/19 04:30 127 29 181/94 (123) 95 06/24/19 04:00 Mechanical Ventilator 06/24/19 04:00 85 06/24/19 04:00 30 181/94 Mechanical Ventilator 30 06/24/19 04:00 30 06/24/19 04:00 97.8 84 26 136/71 (92) 100 06/24/19 03:37 99 26 30 06/24/19 03:30 80 26 137/66 (89) 100 06/24/19 03:00 20 137/66 Mechanical Ventilator 30 06/24/19 03:00 85 26 136/68 (90) 99 06/24/19 02:30 85 23 127/64 (85) 99 06/24/19 02:00 100 23 159/68 (98) 97 06/24/19 02:00 16 159/68 Mechanical Ventilator 30 06/24/19 01:30 87 17 116/61 (79) 99 06/24/19 01:00 95 16 113/57 (75) 99 06/24/19 01:00 16 113/57 Mechanical Ventilator 30 06/24/19 00:30 101 12 169/94 (119) 98 06/24/19 00:03 Mechanical Ventilator 06/24/19 00:00 102 06/24/19 00:00 97.8 89 16 113/72 (86) 98 06/24/19 00:00 16 113/72 Mechanical Ventilator 30 06/23/19 23:30 85 18 136/67 (90) 98 06/23/19 23:20 82 26 30 06/23/19 23:00 136/67 06/23/19 23:00 16 103/50 Mechanical Ventilator 30 06/23/19 23:00 76 16 103/50 (67) 100 06/23/19 22:30 76 16 112/56 (74) 100 06/23/19 22:00 78 16 128/60 (82) 98 06/23/19 22:00 17 128/60 Mechanical Ventilator 30 06/23/19 21:30 83 11 134/61 (85) 96 06/23/19 21:00 84 17 150/63 (92) 100 06/23/19 21:00 11 134/61 Mechanical Ventilator 30 06/23/19 21:00 134/61 06/23/19 20:30 79 15 147/66 (93) 100 06/23/19 20:00 84 06/23/19 20:00 15 126/62 Mechanical Ventilator 30 06/23/19 20:00 126/62 06/23/19 20:00 76 10 147/85 (105) 100 06/23/19 20:00 30 06/23/19 20:00 Mechanical Ventilator 06/23/19 19:30 98.7 76 19 118/58 (78) 100 06/23/19 19:12 86 26 30 06/23/19 19:00 20 104/58 Mechanical Ventilator 30 06/23/19 19:00 104/58 06/23/19 19:00 81 12 110/53 (72) 98 06/23/19 18:00 24 143/63 Mechanical Ventilator 30 06/23/19 18:00 143/63 06/23/19 18:00 80 24 104/58 (73) 99 06/23/19 17:15 90 25 143/63 (89) 96 06/23/19 17:00 98.9 88 26 124/55 (78) 95 06/23/19 17:00 24 115/55 Mechanical Ventilator 30 06/23/19 17:00 115/55 06/23/19 16:00 Mechanical Ventilator 06/23/19 16:00 30 06/23/19 16:00 20 123/54 Mechanical Ventilator 30 06/23/19 16:00 123/54 06/23/19 16:00 75 19 121/58 (79) 98 06/23/19 16:00 89 06/23/19 15:30 72 26 117/62 (80) 98 06/23/19 15:16 71 26 97 Mechanical Ventilator 30 78 28 30 06/23/19 15:00 22 115/55 Mechanical Ventilator 30 06/23/19 15:00 115/55 06/23/19 15:00 77 26 141/64 (89) 99 Intake and Output 06/23/19 06/24/19 19:00 07:00 Intake Total 707.96 ml 287.12 ml Output Total 0 ml 0 ml Balance 707.96 ml 287.12 ml Free Water 150 ml IV Total 137.96 ml 82.12 ml Tube Feeding 420 ml 175 ml Other 30 ml Output Urine Total 0 ml 0 ml # Bowel Movements 2 Laboratory Tests Test 06/24/19 05:23 White Blood Count 11.8 K/UL (4.8-10.8) H Red Blood Count 2.81 M/UL (4.70-6.10) L Hemoglobin 8.3 G/DL (14.2-18.0) L Hematocrit 25.9 % (42.0-52.0) L Mean Corpuscular Volume 92 FL (80-99) Mean Corpuscular Hemoglobin 29.5 PG (27.0-31.0) Mean Corpuscular Hemoglobin Concent 31.9 G/DL (32.0-36.0) L Red Cell Distribution Width 17.7 % (11.6-14.8) H Platelet Count 255 K/UL (150-450) Mean Platelet Volume 7.3 FL (6.5-10.1) Neutrophils (%) (Auto) % (45.0-75.0) Lymphocytes (%) (Auto) % (20.0-45.0) Monocytes (%) (Auto) % (1.0-10.0) Eosinophils (%) (Auto) % (0.0-3.0) Basophils (%) (Auto) % (0.0-2.0) Differential Total Cells Counted 100 Neutrophils % (Manual) 90 % (45-75) H Lymphocytes % (Manual) 6 % (20-45) L Monocytes % (Manual) 4 % (1-10) Eosinophils % (Manual) 0 % (0-3) Basophils % (Manual) 0 % (0-2) Band Neutrophils 0 % (0-8) Platelet Estimate Adequate Platelet Morphology Normal Hypochromasia 2+ Anisocytosis 2+ Sodium Level 130 MMOL/L (136-145) L Potassium Level 3.3 MMOL/L (3.5-5.1) L Chloride Level 91 MMOL/L (98-107) L Carbon Dioxide Level 24 MMOL/L (21-32) Anion Gap 15 mmol/L (5-15) Blood Urea Nitrogen 61 mg/dL (7-18) H Creatinine 7.4 MG/DL (0.55-1.30) H Estimat Glomerular Filtration Rate 7.4 mL/min (>60) Glucose Level 212 MG/DL (74-106) H Calcium Level 8.5 MG/DL (8.5-10.1) Phosphorus Level 4.5 MG/DL (2.5-4.9) Magnesium Level 2.4 MG/DL (1.8-2.4) Total Bilirubin 0.4 MG/DL (0.2-1.0) Aspartate Amino Transf (AST/SGOT) 20 U/L (15-37) Alanine Aminotransferase (ALT/SGPT) 10 U/L (12-78) L Alkaline Phosphatase 86 U/L (46-116) C-Reactive Protein, Quantitative 17.9 mg/dL (0.00-0.90) H Total Protein 7.2 G/DL (6.4-8.2) Albumin 1.6 G/DL (3.4-5.0) L Globulin 5.6 g/dL Albumin/Globulin Ratio 0.3 (1.0-2.7) L Objective HEAD AND NECK: No JVD.Orally intubated LUNGS: Decreased breath sounds. CARDIOVASCULAR: Regular S1 and S2. Tachycardic. ABDOMEN: Soft. EXTREMITIES: No pitting edema. New Left FV Gio Engle MD June 24, 2019 14:16
--- NOTE | 2019-06-24 14:53 | Hematology/Onc Progress Note ---
Assessment/Plan Assessment/Plan Assessment and Recs: # Anemia of chronic disease, likely related ot underlying kidney disease has COIVD19++ --> hgb trend 9-->8-->7.3-->7.9-->6.8->9.5-->10->8.3-->7.7-->7.1-->8.9->8.8->7.7 -->8.1 --> transfuse as needed, hgb goal >7 --> no evidence of hemolysis --> peripheral smear has been reviewed --> epogen started three x a week ==>> transfuse w 2 units 06/08, 06/15, # Leukocytosis likely related to suspected COVID-19 virus infection --> completed plaquenil --> trend smear as needed --> initially 4-->11-->14.5-->21-->26-->21->24--.28-->23-->19-->16.2-->21--> 11.2 --> pulm is aware --> on abx cefepime/vanc->zosyn/vanc --> pressors as needed # Thrombocytopenia/Lymphopenia --> likely related to covid19 --> plt 129k-->186k-->251 # Respiratory failure with covid19+ --> s/p vent # Possible Pneumonia --> abx given --> on zosyn and vanc # Cardiomegaly # Transaminitis with Elevated AST # COPD # Chronic Kidney Disease --> per renal hd # Hypertension # Dvt ppx lovenox Appreciate consultation and dw Rn Subjective Endocrine: Denies: no symptoms, excessive sweating, flushing, intolerance to cold, intolerance to heat, increased hunger, increased thirst, increased urine, unexplained weight gain, unexplained weight loss, other Allergies: Coded Allergies: No Known Allergies (Unverified , 05/28/19) All Systems: reviewed and negative except above Subjective 06/01 nv, extremely agitated, not allowing labs draws, no night sweats, cbc ordered 06/02 confused, restraints, on abx and plaquenil, hgb 7.9, nrb 15 L 06/03 is with nonrebreather, but not compliant, remains confused 06/05 no bleeding, labs noted, no major bleeding, otherwise comfortable 06/06 labs reviewed, no bleeding, meds noted, no night sweats, on levo and nonrebreather 06/07 labs noted, no bleeding, meds reviewed, no bleeding, wbc higher 06/08 to get 2 units prbc, no night sweats, meds reviewed 06/09 is on cefepime and vanc, labs noted, ernesto Rn, no bleeding 06/10 no major changes, labs reviewed, wbc 28k, on abx, cefepime 06/12 remains in icu, labs noted, no night sweats or bleeding 06/13 sluggish pupils, remains agitated, per psych, no bleding, on vent, wbc sitll high 06/14 still confused, remains on vent, with ng, running nepro, on pressors 06/15 icu, febrile, non verbal, hgb 7.1, blood pending, completed plaq 06/16 remains in the icu, nonverbal, plan for hd tomorrow, ernesto rn 06/17 in icu, on pressor, nonverbal, on abx, no bleeding 06/19 no bleeding, nonverbal in icu, hgb is 7.7 06/20 on zosyn, tube feeds, vent, labs noted, in icu, nv 06/21 gettng hd as per renal, in icu, nv, no bleeding, tfs 06/22 icu, cxr with slight improvement, cooling blanket, weaning today 06/23 wewaning, in icu, on vent, abx, and pressors as needed, labs noted Objective Objective Current Medications Medications (Trade) Dose Ordered Sig/Anthony Route PRN Reason Start Time Stop Time Status Last Admin Dose Admin Acetaminophen (Tylenol) 650 mg Q4H PRN NG Temp >100.5 06/13/19 11:00 07/13/19 10:59 06/20/19 17:38 Albuterol Sulfate (Proventil MDI) 2 puff Q4HRT INH 06/06/19 23:00 08/30/19 18:59 06/24/19 11:10 Chlorhexidine Gluconate (Michelle-Hex 2%) 1 applic DAILY@1999 TOPIC 06/07/19 20:00 09/05/19 19:59 06/23/19 21:08 Dextrose (Dextrose 50%) 25 ml Q30M PRN IV Hypoglycemia 06/20/19 19:30 09/18/19 19:29 Dextrose (Dextrose 50%) 50 ml Q30M PRN IV Hypoglycemia 06/20/19 19:30 09/18/19 19:29 Docusate Sodium (Colace) 100 mg THREE TIMES A DAY NG 06/07/19 13:00 07/07/19 12:59 06/24/19 12:45 Dopamine HCl/ Dextrose 250 ml @ 0 mls/hr Q24H PRN IV For hypotension 06/13/19 08:15 09/11/19 08:14 Enoxaparin Sodium (Lovenox) 30 mg DAILY SUBQ 06/07/19 09:00 08/27/19 08:59 06/24/19 10:12 Epoetin Aftab (Epoetin Aftab(ESRD on dialysis)) 10,000 unit SUBQ 06/07/19 21:00 08/31/19 20:59 06/23/19 21:09 Fentanyl Citrate 250 ml @ 0 mls/hr Q24H IV 06/24/19 06:00 09/22/19 05:59 Hydralazine HCl (Apresoline) 10 mg Q4H PRN IV Blood pressure over 160 systol 06/07/19 10:15 09/05/19 10:14 Insulin Aspart (NovoLOG) EVERY 6 HOURS SUBQ 06/21/19 00:00 09/19/19 00:00 06/24/19 12:49 Metoclopramide HCl (Reglan) 5 mg Q8H PRN IVP Nausea & Vomiting 06/18/19 12:00 07/18/19 11:59 06/19/19 00:50 Midodrine (Pro-Amatine) 10 mg THREE TIMES A DAY NG 06/09/19 13:00 09/07/19 12:59 06/24/19 12:45 Norepinephrine Bitartrate 8 mg/ Dextrose 283 ml @ 0 mls/hr Q24H IV 06/23/19 23:00 07/23/19 22:59 Pantoprazole (Protonix) 40 mg DAILY IVP 06/19/19 09:00 07/19/19 08:59 06/24/19 10:11 Sevelamer Carbonate (Renvela) 1,600 mg Q6HR NG 06/14/19 12:00 09/05/19 12:59 06/24/19 12:46 Last 24 Hour Vital Signs Date Time Temp Pulse Resp B/P (MAP) Pulse Ox O2 Delivery O2 Flow Rate FiO2 06/24/19 12:00 91 17 139/75 (96) 100 06/24/19 12:00 94 06/24/19 11:30 84 0 127/64 (85) 100 06/24/19 11:10 83 26 100 Mechanical Ventilator 30 83 26 30 06/24/19 11:00 84 6 117/59 (78) 100 06/24/19 10:30 95 15 100/71 (81) 99 06/24/19 10:00 84 23 77/51 (60) 99 06/24/19 09:30 91 24 73/47 (56) 97 06/24/19 09:00 101 21 77/45 (56) 97 06/24/19 08:30 136 20 122/61 (81) 97 06/24/19 08:00 Mechanical Ventilator 06/24/19 08:00 85 06/24/19 08:00 97.9 155 28 190/97 (128) 89 06/24/19 08:00 30 06/24/19 07:30 102 24 149/114 (126) 96 06/24/19 07:10 120 30 97 Mechanical Ventilator 30 120 30 30 06/24/19 07:00 96 26 96/57 (70) 98 06/24/19 06:28 94 17 06/24/19 06:00 20 119/71 Mechanical Ventilator 30 06/24/19 06:00 17 119/71 Mechanical Ventilator 30 06/24/19 06:00 109 21 119/71 (87) 98 06/24/19 05:30 106 25 117/63 (81) 97 06/24/19 05:00 30 150/86 Mechanical Ventilator 30 06/24/19 05:00 120 25 150/86 (107) 97 06/24/19 04:30 127 29 181/94 (123) 95 06/24/19 04:00 Mechanical Ventilator 06/24/19 04:00 85 06/24/19 04:00 30 181/94 Mechanical Ventilator 30 06/24/19 04:00 30 06/24/19 04:00 97.8 84 26 136/71 (92) 100 06/24/19 03:37 99 26 30 06/24/19 03:30 80 26 137/66 (89) 100 06/24/19 03:00 20 137/66 Mechanical Ventilator 30 06/24/19 03:00 85 26 136/68 (90) 99 06/24/19 02:30 85 23 127/64 (85) 99 06/24/19 02:00 100 23 159/68 (98) 97 06/24/19 02:00 16 159/68 Mechanical Ventilator 30 06/24/19 01:30 87 17 116/61 (79) 99 06/24/19 01:00 95 16 113/57 (75) 99 06/24/19 01:00 16 113/57 Mechanical Ventilator 30 06/24/19 00:30 101 12 169/94 (119) 98 06/24/19 00:03 Mechanical Ventilator 06/24/19 00:00 102 06/24/19 00:00 97.8 89 16 113/72 (86) 98 06/24/19 00:00 16 113/72 Mechanical Ventilator 30 06/23/19 23:30 85 18 136/67 (90) 98 06/23/19 23:20 82 26 30 06/23/19 23:00 136/67 06/23/19 23:00 16 103/50 Mechanical Ventilator 30 06/23/19 23:00 76 16 103/50 (67) 100 06/23/19 22:30 76 16 112/56 (74) 100 06/23/19 22:00 78 16 128/60 (82) 98 06/23/19 22:00 17 128/60 Mechanical Ventilator 30 06/23/19 21:30 83 11 134/61 (85) 96 06/23/19 21:00 84 17 150/63 (92) 100 06/23/19 21:00 11 134/61 Mechanical Ventilator 30 06/23/19 21:00 134/61 06/23/19 20:30 79 15 147/66 (93) 100 06/23/19 20:00 84 06/23/19 20:00 15 126/62 Mechanical Ventilator 30 06/23/19 20:00 126/62 06/23/19 20:00 76 10 147/85 (105) 100 06/23/19 20:00 30 06/23/19 20:00 Mechanical Ventilator 06/23/19 19:30 98.7 76 19 118/58 (78) 100 06/23/19 19:12 86 26 30 06/23/19 19:00 20 104/58 Mechanical Ventilator 30 06/23/19 19:00 104/58 06/23/19 19:00 81 12 110/53 (72) 98 06/23/19 18:00 24 143/63 Mechanical Ventilator 30 06/23/19 18:00 143/63 06/23/19 18:00 80 24 104/58 (73) 99 06/23/19 17:15 90 25 143/63 (89) 96 06/23/19 17:00 98.9 88 26 124/55 (78) 95 06/23/19 17:00 24 115/55 Mechanical Ventilator 30 06/23/19 17:00 115/55 06/23/19 16:00 Mechanical Ventilator 06/23/19 16:00 30 06/23/19 16:00 20 123/54 Mechanical Ventilator 30 06/23/19 16:00 123/54 06/23/19 16:00 75 19 121/58 (79) 98 06/23/19 16:00 89 06/23/19 15:30 72 26 117/62 (80) 98 06/23/19 15:16 71 26 97 Mechanical Ventilator 30 78 28 30 06/23/19 15:00 22 115/55 Mechanical Ventilator 30 06/23/19 15:00 115/55 06/23/19 15:00 77 26 141/64 (89) 99 06/23/19 14:00 77 25 122/59 (80) 98 06/23/19 14:00 24 118/49 30 06/23/19 14:00 118/59 06/23/19 13:00 26 145/67 Mechanical Ventilator 30 06/23/19 13:00 145/67 06/23/19 13:00 94 12 145/67 (93) 96 06/23/19 12:30 83 26 126/63 (84) 99 06/23/19 12:00 30 06/23/19 12:00 98.3 82 26 127/63 (84) 98 06/23/19 12:00 25 127/63 Mechanical Ventilator 30 06/23/19 12:00 127/63 06/23/19 12:00 Mechanical Ventilator 06/23/19 12:00 91 06/23/19 11:30 90 13 123/58 (79) 97 06/23/19 11:03 85 26 95 Mechanical Ventilator 30 88 26 30 06/23/19 11:00 94 21 126/65 (85) 97 06/23/19 11:00 23 126/65 30 06/23/19 11:00 126/65 06/23/19 10:30 90 14 127/61 (83) 97 06/23/19 10:00 15 133/60 Mechanical Ventilator 30 06/23/19 10:00 133/60 06/23/19 10:00 106 21 133/60 (84) 94 06/23/19 09:52 30 06/23/19 09:30 88 26 108/61 (77) 99 06/23/19 09:00 81 26 98/53 (68) 100 06/23/19 09:00 26 98/53 Mechanical Ventilator 30 06/23/19 09:00 98/53 06/23/19 08:57 28 106/57 Mechanical Ventilator 40 06/23/19 08:30 91 23 133/63 (86) 100 06/23/19 08:00 104/55 06/23/19 08:00 30 06/23/19 08:00 Mechanical Ventilator 06/23/19 08:00 85 06/23/19 08:00 99.3 84 25 104/55 (71) 100 06/23/19 07:30 80 26 112/56 (74) 100 06/23/19 07:14 85 28 Mechanical Ventilator 40 40 06/23/19 07:00 83 24 107/61 (76) 100 06/23/19 07:00 107/61 06/23/19 06:49 86 26 06/23/19 06:30 82 26 106/57 (73) 100 06/23/19 06:00 80 26 99/56 (70) 100 06/23/19 06:00 106/57 06/23/19 05:30 84 25 95/54 (68) 100 06/23/19 05:00 26 116/62 Mechanical Ventilator 40 06/23/19 05:00 116/62 06/23/19 05:00 87 26 110/66 (81) 100 06/23/19 04:30 116 23 116/62 (80) 97 06/23/19 04:00 40 06/23/19 04:00 86 06/23/19 04:00 98.7 86 26 129/65 (86) 100 06/23/19 04:00 23 119/57 Mechanical Ventilator 40 06/23/19 04:00 119/57 06/23/19 04:00 Mechanical Ventilator 06/23/19 03:33 94 27 100 Mechanical Ventilator 40 97 27 40 06/23/19 03:30 95 8 150/79 (102) 100 06/23/19 03:00 12 154/96 Mechanical Ventilator 40 06/23/19 03:00 154/96 06/23/19 03:00 98 11 152/87 (108) 93 06/23/19 02:30 91 13 150/73 (98) 97 06/23/19 02:00 89 5 143/91 (108) 99 06/23/19 02:00 10 150/73 Mechanical Ventilator 40 06/23/19 02:00 150/73 06/23/19 01:30 86 14 134/82 (99) 100 06/23/19 01:00 23 104/56 Mechanical Ventilator 40 06/23/19 01:00 104/56 06/23/19 01:00 87 20 120/68 (85) 100 06/23/19 00:30 93 17 112/66 (81) 95 06/23/19 00:00 89 06/23/19 00:00 98.2 91 0 122/65 (84) 92 06/23/19 00:00 19 120/61 Mechanical Ventilator 40 06/23/19 00:00 120/61 06/23/19 00:00 Mechanical Ventilator 06/23/19 00:00 40 06/22/19 23:30 91 25 138/70 (92) 100 06/22/19 23:00 98 20 155/92 (113) 100 06/22/19 23:00 21 175/75 Mechanical Ventilator 40 06/22/19 23:00 175/75 06/22/19 22:37 102 26 100 Mechanical Ventilator 40 99 26 40 06/22/19 22:30 142 29 173/72 (105) 100 06/22/19 22:27 23 151/78 Mechanical Ventilator 40 06/22/19 22:00 112 22 138/69 (92) 98 06/22/19 22:00 18 151/78 Mechanical Ventilator 40 06/22/19 22:00 151/78 06/22/19 21:30 96 24 147/76 (99) 97 06/22/19 21:00 24 137/72 Mechanical Ventilator 40 06/22/19 21:00 137/72 06/22/19 21:00 87 26 124/68 (86) 96 06/22/19 20:30 91 16 143/68 (93) 98 06/22/19 20:00 87 14 141/79 (99) 98 06/22/19 20:00 Mechanical Ventilator 06/22/19 20:00 40 06/22/19 20:00 18 155/70 Mechanical Ventilator 40 06/22/19 20:00 155/70 06/22/19 20:00 85 06/22/19 19:30 98.7 113 22 172/78 (109) 99 06/22/19 19:27 80 28 100 Mechanical Ventilator 40 83 28 40 06/22/19 19:15 88 13 157/72 (100) 100 06/22/19 19:00 83 19 140/64 (89) 100 06/22/19 19:00 14 122/76 Mechanical Ventilator 40 06/22/19 19:00 157/72 06/22/19 18:30 74 26 125/57 (79) 100 06/22/19 18:00 76 26 122/60 (80) 100 06/22/19 18:00 118/59 06/22/19 17:30 100 21 117/68 (84) 100 06/22/19 17:00 100 18 136/66 (89) 100 06/22/19 17:00 133/66 06/22/19 16:28 92 21 136/63 (87) 100 06/22/19 16:00 Mechanical Ventilator 06/22/19 16:00 151/64 06/22/19 16:00 87 20 151/64 (93) 100 06/22/19 16:00 81 06/22/19 16:00 40 06/22/19 15:30 86 22 139/67 (91) 100 06/22/19 15:18 90 26 100 Mechanical Ventilator 40 95 30 40 06/22/19 15:00 90 20 157/61 (93) 100 Intake and Output 06/23/19 06/24/19 19:00 07:00 Intake Total 707.96 ml 287.12 ml Output Total 0 ml 0 ml Balance 707.96 ml 287.12 ml Free Water 150 ml IV Total 137.96 ml 82.12 ml Tube Feeding 420 ml 175 ml Other 30 ml Output Urine Total 0 ml 0 ml # Bowel Movements 2 Labs Test 06/22/19 06:13 06/23/19 04:13 06/23/19 08:27 06/24/19 05:23 White Blood Count 13.0 K/UL (4.8-10.8) 11.2 K/UL (4.8-10.8) 11.8 K/UL (4.8-10.8) Red Blood Count 2.73 M/UL (4.70-6.10) 2.67 M/UL (4.70-6.10) 2.81 M/UL (4.70-6.10) Hemoglobin 8.2 G/DL (14.2-18.0) 8.1 G/DL (14.2-18.0) 8.3 G/DL (14.2-18.0) Hematocrit 25.5 % (42.0-52.0) 25.0 % (42.0-52.0) 25.9 % (42.0-52.0) Mean Corpuscular Volume 94 FL (80-99) 94 FL (80-99) 92 FL (80-99) Mean Corpuscular Hemoglobin 30.0 PG (27.0-31.0) 30.2 PG (27.0-31.0) 29.5 PG (27.0-31.0) Mean Corpuscular Hemoglobin Concent 32.1 G/DL (32.0-36.0) 32.3 G/DL (32.0-36.0) 31.9 G/DL (32.0-36.0) Red Cell Distribution Width 18.7 % (11.6-14.8) 18.6 % (11.6-14.8) 17.7 % (11.6-14.8) Platelet Count 264 K/UL (150-450) 251 K/UL (150-450) 255 K/UL (150-450) Mean Platelet Volume 7.4 FL (6.5-10.1) 7.8 FL (6.5-10.1) 7.3 FL (6.5-10.1) Neutrophils (%) (Auto) % (45.0-75.0) % (45.0-75.0) % (45.0-75.0) Lymphocytes (%) (Auto) % (20.0-45.0) % (20.0-45.0) % (20.0-45.0) Monocytes (%) (Auto) % (1.0-10.0) % (1.0-10.0) % (1.0-10.0) Eosinophils (%) (Auto) % (0.0-3.0) % (0.0-3.0) % (0.0-3.0) Basophils (%) (Auto) % (0.0-2.0) % (0.0-2.0) % (0.0-2.0) Differential Total Cells Counted 100 100 100 Neutrophils % (Manual) 88 % (45-75) 91 % (45-75) 90 % (45-75) Lymphocytes % (Manual) 6 % (20-45) 3 % (20-45) 6 % (20-45) Monocytes % (Manual) 5 % (1-10) 4 % (1-10) 4 % (1-10) Eosinophils % (Manual) 0 % (0-3) 0 % (0-3) 0 % (0-3) Basophils % (Manual) 0 % (0-2) 1 % (0-2) 0 % (0-2) Band Neutrophils 1 % (0-8) 0 % (0-8) 0 % (0-8) Platelet Estimate Adequate Adequate Adequate Platelet Morphology Normal Normal Normal Anisocytosis 1+ 2+ 2+ Sodium Level 127 MMOL/L (136-145) 133 MMOL/L (136-145) 130 MMOL/L (136-145) Potassium Level 3.7 MMOL/L (3.5-5.1) 3.5 MMOL/L (3.5-5.1) 3.3 MMOL/L (3.5-5.1) Chloride Level 88 MMOL/L (98-107) 92 MMOL/L (98-107) 91 MMOL/L (98-107) Carbon Dioxide Level 24 MMOL/L (21-32) 27 MMOL/L (21-32) 24 MMOL/L (21-32) Blood Urea Nitrogen 64 mg/dL (7-18) 50 mg/dL (7-18) 61 mg/dL (7-18) Creatinine 8.2 MG/DL (0.55-1.30) 6.4 MG/DL (0.55-1.30) 7.4 MG/DL (0.55-1.30) Estimat Glomerular Filtration Rate 6.6 mL/min (>60) 8.8 mL/min (>60) 7.4 mL/min (>60) Glucose Level 212 MG/DL (74-106) 210 MG/DL (74-106) 212 MG/DL (74-106) Calcium Level 8.4 MG/DL (8.5-10.1) 8.9 MG/DL (8.5-10.1) 8.5 MG/DL (8.5-10.1) Iron Level 21 ug/dL (50-175) Total Iron Binding Capacity 101 ug/dL (250-450) Percent Iron Saturation 21 % (15-50) Unsaturated Iron Binding 80 ug/dL (112-346) Ferritin 414 NG/ML (8-388) Total Bilirubin 0.4 MG/DL (0.2-1.0) 0.4 MG/DL (0.2-1.0) 0.4 MG/DL (0.2-1.0) Aspartate Amino Transf (AST/SGOT) 17 U/L (15-37) 20 U/L (15-37) 20 U/L (15-37) Alanine Aminotransferase (ALT/SGPT) 12 U/L (12-78) 10 U/L (12-78) 10 U/L (12-78) Alkaline Phosphatase 71 U/L (46-116) 84 U/L (46-116) 86 U/L (46-116) Total Protein 7.6 G/DL (6.4-8.2) 7.7 G/DL (6.4-8.2) 7.2 G/DL (6.4-8.2) Albumin 1.6 G/DL (3.4-5.0) 1.8 G/DL (3.4-5.0) 1.6 G/DL (3.4-5.0) Globulin 6.0 g/dL 5.9 g/dL 5.6 g/dL Albumin/Globulin Ratio 0.3 (1.0-2.7) 0.3 (1.0-2.7) 0.3 (1.0-2.7) Metamyelocytes % 1 % (0-0) Hypochromasia 2+ 2+ Anion Gap 14 mmol/L (5-15) 15 mmol/L (5-15) Uric Acid 3.9 MG/DL (2.6-7.2) Phosphorus Level 5.5 MG/DL (2.5-4.9) 4.5 MG/DL (2.5-4.9) Magnesium Level 2.3 MG/DL (1.8-2.4) 2.4 MG/DL (1.8-2.4) Arterial Blood pH 7.383 (7.350-7.450) Arterial Blood Partial Pressure CO2 40.4 mmHg (35.0-45.0) Arterial Blood Partial Pressure O2 112.3 mmHg (75.0-100.0) Arterial Blood HCO3 23.5 mmol/L (22.0-26.0) Arterial Blood Oxygen Saturation 97.7 % (95-100) Arterial Blood Base Excess -1.4 (-2-2) Kosta Test Positive C-Reactive Protein, Quantitative 17.9 mg/dL (0.00-0.90) Height (Feet): 6 Height (Inches): 1.00 Weight (Pounds): 244 Objective Sp02 EP Interpretation: reviewed General: nv, confused, sedated Heent: bilateral eye normal inspection, bilateral eye PERRL ++Ng Respiratory: normal breath sounds, no respiratory distress, intubated+++ Cardiovascular: regular rate, rhythm, no edema Gastrointestinal: normal inspection, soft, non-distended Rectal: deferred Musculoskeletal: normal range of motion, non-tender Neurologic: alert, motor strength/tone normal, sensory intact, responsive, speech normal Skin: Decubitus/Ulcer - See RN skin exam. : jamaal+ Greg Cabral MD June 24, 2019 14:53
--- NOTE | 2019-06-24 19:35 | Surgery Progress Note ---
Surgery Progress Note Subjective Procedure Performed Right femoral temporary hemodialysis catheter insertion Additional Comments labs noted ill appearing vent settings now minimal Objective Last 24 Hour Vital Signs Date Time Temp Pulse Resp B/P (MAP) Pulse Ox O2 Delivery O2 Flow Rate FiO2 06/24/19 19:20 97 31 100 Mechanical Ventilator 30 98 31 30 06/24/19 19:00 93 4 122/62 (82) 100 06/24/19 18:30 86 26 149/70 (96) 100 06/24/19 18:00 98.6 81 21 112/58 (76) 100 06/24/19 17:00 87 23 107/57 (74) 99 06/24/19 16:30 111 28 135/73 (93) 100 06/24/19 16:00 103 06/24/19 16:00 101 18 86/53 (64) 100 06/24/19 16:00 Mechanical Ventilator 06/24/19 16:00 30 06/24/19 15:10 137 43 97 Mechanical Ventilator 30 137 43 30 06/24/19 15:08 17 139/75 Mechanical Ventilator 70.0 30 06/24/19 15:00 120 26 139/69 (92) 97 06/24/19 14:30 121 7 105/56 (72) 98 06/24/19 14:00 98 17 96/70 (79) 98 06/24/19 13:30 96 10 113/63 (80) 99 06/24/19 13:00 98.0 99 11 136/68 (90) 99 06/24/19 12:00 91 17 139/75 (96) 100 06/24/19 12:00 30 06/24/19 12:00 94 06/24/19 12:00 Mechanical Ventilator 06/24/19 11:30 84 22 127/64 (85) 100 06/24/19 11:10 83 26 100 Mechanical Ventilator 30 83 26 30 06/24/19 11:00 84 24 117/59 (78) 100 06/24/19 10:30 95 15 100/71 (81) 99 06/24/19 10:00 84 23 77/51 (60) 99 06/24/19 09:30 91 24 73/47 (56) 97 06/24/19 09:00 101 21 77/45 (56) 97 06/24/19 08:30 136 20 122/61 (81) 97 06/24/19 08:00 Mechanical Ventilator 06/24/19 08:00 85 06/24/19 08:00 97.9 155 28 190/97 (128) 89 06/24/19 08:00 30 06/24/19 07:30 102 24 149/114 (126) 96 06/24/19 07:10 120 30 97 Mechanical Ventilator 30 120 30 30 06/24/19 07:00 96 26 96/57 (70) 98 06/24/19 06:28 94 17 06/24/19 06:00 20 119/71 Mechanical Ventilator 30 06/24/19 06:00 17 119/71 Mechanical Ventilator 30 06/24/19 06:00 109 21 119/71 (87) 98 06/24/19 05:30 106 25 117/63 (81) 97 06/24/19 05:00 30 150/86 Mechanical Ventilator 30 06/24/19 05:00 120 25 150/86 (107) 97 06/24/19 04:30 127 29 181/94 (123) 95 06/24/19 04:00 Mechanical Ventilator 06/24/19 04:00 85 06/24/19 04:00 30 181/94 Mechanical Ventilator 30 06/24/19 04:00 30 06/24/19 04:00 97.8 84 26 136/71 (92) 100 06/24/19 03:37 99 26 30 06/24/19 03:30 80 26 137/66 (89) 100 06/24/19 03:00 20 137/66 Mechanical Ventilator 30 06/24/19 03:00 85 26 136/68 (90) 99 06/24/19 02:30 85 23 127/64 (85) 99 06/24/19 02:00 100 23 159/68 (98) 97 06/24/19 02:00 16 159/68 Mechanical Ventilator 30 06/24/19 01:30 87 17 116/61 (79) 99 06/24/19 01:00 95 16 113/57 (75) 99 06/24/19 01:00 16 113/57 Mechanical Ventilator 30 06/24/19 00:30 101 12 169/94 (119) 98 06/24/19 00:03 Mechanical Ventilator 06/24/19 00:00 102 06/24/19 00:00 97.8 89 16 113/72 (86) 98 06/24/19 00:00 16 113/72 Mechanical Ventilator 30 06/23/19 23:30 85 18 136/67 (90) 98 06/23/19 23:20 82 26 30 06/23/19 23:00 136/67 06/23/19 23:00 16 103/50 Mechanical Ventilator 30 06/23/19 23:00 76 16 103/50 (67) 100 06/23/19 22:30 76 16 112/56 (74) 100 06/23/19 22:00 78 16 128/60 (82) 98 06/23/19 22:00 17 128/60 Mechanical Ventilator 30 06/23/19 21:30 83 11 134/61 (85) 96 06/23/19 21:00 84 17 150/63 (92) 100 06/23/19 21:00 11 134/61 Mechanical Ventilator 30 06/23/19 21:00 134/61 06/23/19 20:30 79 15 147/66 (93) 100 06/23/19 20:00 84 06/23/19 20:00 15 126/62 Mechanical Ventilator 30 06/23/19 20:00 126/62 06/23/19 20:00 76 10 147/85 (105) 100 06/23/19 20:00 30 06/23/19 20:00 Mechanical Ventilator I&O Intake and Output 06/23/19 06/24/19 19:00 07:00 Intake Total 707.96 ml 287.12 ml Output Total 0 ml 0 ml Balance 707.96 ml 287.12 ml Free Water 150 ml IV Total 137.96 ml 82.12 ml Tube Feeding 420 ml 175 ml Other 30 ml Output Urine Total 0 ml 0 ml # Bowel Movements 2 Dressing: saturated Cardiovascular: RSR Respiratory: decreased breath sounds Abdomen: present bowel sounds Extremities: no cyanosis Laboratory Tests Test 06/24/19 05:23 White Blood Count 11.8 K/UL (4.8-10.8) H Red Blood Count 2.81 M/UL (4.70-6.10) L Hemoglobin 8.3 G/DL (14.2-18.0) L Hematocrit 25.9 % (42.0-52.0) L Mean Corpuscular Volume 92 FL (80-99) Mean Corpuscular Hemoglobin 29.5 PG (27.0-31.0) Mean Corpuscular Hemoglobin Concent 31.9 G/DL (32.0-36.0) L Red Cell Distribution Width 17.7 % (11.6-14.8) H Platelet Count 255 K/UL (150-450) Mean Platelet Volume 7.3 FL (6.5-10.1) Neutrophils (%) (Auto) % (45.0-75.0) Lymphocytes (%) (Auto) % (20.0-45.0) Monocytes (%) (Auto) % (1.0-10.0) Eosinophils (%) (Auto) % (0.0-3.0) Basophils (%) (Auto) % (0.0-2.0) Differential Total Cells Counted 100 Neutrophils % (Manual) 90 % (45-75) H Lymphocytes % (Manual) 6 % (20-45) L Monocytes % (Manual) 4 % (1-10) Eosinophils % (Manual) 0 % (0-3) Basophils % (Manual) 0 % (0-2) Band Neutrophils 0 % (0-8) Platelet Estimate Adequate Platelet Morphology Normal Hypochromasia 2+ Anisocytosis 2+ Sodium Level 130 MMOL/L (136-145) L Potassium Level 3.3 MMOL/L (3.5-5.1) L Chloride Level 91 MMOL/L (98-107) L Carbon Dioxide Level 24 MMOL/L (21-32) Anion Gap 15 mmol/L (5-15) Blood Urea Nitrogen 61 mg/dL (7-18) H Creatinine 7.4 MG/DL (0.55-1.30) H Estimat Glomerular Filtration Rate 7.4 mL/min (>60) Glucose Level 212 MG/DL (74-106) H Calcium Level 8.5 MG/DL (8.5-10.1) Phosphorus Level 4.5 MG/DL (2.5-4.9) Magnesium Level 2.4 MG/DL (1.8-2.4) Total Bilirubin 0.4 MG/DL (0.2-1.0) Aspartate Amino Transf (AST/SGOT) 20 U/L (15-37) Alanine Aminotransferase (ALT/SGPT) 10 U/L (12-78) L Alkaline Phosphatase 86 U/L (46-116) C-Reactive Protein, Quantitative 17.9 mg/dL (0.00-0.90) H Total Protein 7.2 G/DL (6.4-8.2) Albumin 1.6 G/DL (3.4-5.0) L Globulin 5.6 g/dL Albumin/Globulin Ratio 0.3 (1.0-2.7) L Plan Problems: (1) Suspected COVID-19 virus infection (2) HTN (hypertension) (3) CASSANDRA (acute kidney injury) Assessment & Plan: Needs urgent HD needs access patient okay and consented see note will follow with recs new line placed discussed with team and nephrology HD line functional when checked has TPA now please use appropriately Cathflo used again this flow during dialysis on 430 was low. Will monitor may need line change 5/ plan for HD as per renal may need to take fluid off with HD edema anasarca dressings saturated and changed will monitor (4) Anemia in chronic kidney disease (CKD) (5) Anemia (6) Renal failure (7) Suspected COVID-19 virus infection Assessment & Plan: Pt deconditioned and despite all skin preventions Pt noted to have developed several pressure injuries. . Stable dry eschar noted to clefts of R and L ears. No erythema noted . DTPI noted to L trochanter. Base of injury is maroon in colour with marginal erythema along borders. Partially opened DTPI Sacrum, R and L Buttocks. Base of wound is maroon with two small open wounds L sacrum and L buttocks. Pt has an APM/MOMO Mattress overlay and is being positioned with pillows as per tolerance and within protocols. Tx.Plan: Apply Cavilon Skin Barrier to both ears Daily and prn. Apply Moisture Barrier Paste to Sacrum,R and L Buttocks. Cover with Optifoam drsgs. Change every 3 days and PRN. Apply Cavilon Skin Barrier to R and L trochanter. Cover each site with Optifoam drsgs.Change every 7 days and PRN. Apply Cavilon Skin Barrier to both heels. Cover each heel with Optifoam drsg. Change every 7 days and prn. Off-load heels with pillow. Reposition at least every 2hours or as tolerated. APM/MOMO Mattress overlay. (8) COVID-19 Assessment & Plan: COVID + c diff negative febrile leukocytosis renal insufficiency see above cont resp care Rx as per ID worsening on vent support now cxr noted on pressors prognosis guarded repeat covid ++ weaning vent and pressors off slowly showing improvement Yaniv Mast June 24, 2019 19:35
--- NOTE | 2019-06-24 20:36 | Pulmonolgy Critical Care Note ---
Critical Care - Asmt/Plan Assessment/Plan: Pulmonary CCM Progress Note HPI: Patient is a 68 year old man, group home resident, admitted c/o shortness of breath, cough, noted to have Covid 19 Pneumonia, Respiratory Failure S/p intubation, remains on pressors, CXR stable ETT adjusted Septic Shock, pressors decreasing Preserved EF FIO2 40%-50%, P5, adequate O2 sats, remains on ACVC, did not tolerate weaning HD tolerated Hyponatremia stable Anemia stable Seen earlier ID following On HD per Renal Past Medical History: COPD, CKD, Hypertension, Anemia Hypotension requiring pressors, in ICU Persistently elevated WCC Allergies: No Known Allergies Improving Pulmonary Status on HD Physical Exam Vital Signs Noted Sedated on ventilator WDWN, no distress HEENT: NCAT,moist mm Chest: Occasional rhonchi Heart: HS1, HS2, RRR Abdomen: SNTND, no masses Extremities: Well perfused, no edema TESTER REGULATOR: No focal signs, no seizures, sedated Impression: COVID-19 virus infection Pneumonia Respiratory failure on ventilator Volume overload improving - on HD Hypotension on pressors Cardiomegaly Lymphopenia Elevated AST COPD Chronic Kidney Disease - HD H/o Hypertension Worsening anemia Plan: Antibiotics per ID HD Pressors PRN ACVC - wean as tolerated once pressors reduced/off ABG PRN [employer] Medications 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 Monitor cultures/viral studies PPX Hemodialysis per Renal Psychiatry following [facility] - [facility] requested for when available, [facility] - not available as yet Laboratory Tests Noted: CXR: Hypoventilatory exam, interstitial changes, cardiomegaly, improving infiltrates Subjective ROS Limited/Unobtainable: No Constitutional: Denies: fever Respiratory: Reports: dry cough, shortness of breath Gastrointestinal/Abdominal: Reports: diarrhea, other - colace was stopped Psychiatric: Reports: other - refuses labs Allergies: Coded Allergies: No Known Allergies (Unverified , 05/28/19) All Systems: reviewed and negative except above Labs noted Critical Care - Objective Last 24 Hour Vital Signs Date Time Temp Pulse Resp B/P (MAP) Pulse Ox O2 Delivery O2 Flow Rate FiO2 06/24/19 19:20 97 31 100 Mechanical Ventilator 30 98 31 30 06/24/19 19:00 93 4 122/62 (82) 100 06/24/19 19:00 24 122/62 Mechanical Ventilator 30 06/24/19 19:00 122/62 06/24/19 18:30 86 26 149/70 (96) 100 06/24/19 18:00 98.6 81 21 112/58 (76) 100 06/24/19 18:00 28 122/58 Mechanical Ventilator 30 06/24/19 18:00 112/58 06/24/19 17:00 26 115/55 Mechanical Ventilator 30 06/24/19 17:00 115/55 06/24/19 17:00 87 23 107/57 (74) 99 06/24/19 16:30 111 28 135/73 (93) 100 06/24/19 16:00 103 06/24/19 16:00 101 18 86/53 (64) 100 06/24/19 16:00 Mechanical Ventilator 06/24/19 16:00 23 113/70 Mechanical Ventilator 30 06/24/19 16:00 113/70 06/24/19 16:00 30 06/24/19 15:10 137 43 97 Mechanical Ventilator 30 137 43 30 06/24/19 15:08 17 139/75 Mechanical Ventilator 70.0 30 06/24/19 15:00 139/69 06/24/19 15:00 120 26 139/69 (92) 97 06/24/19 14:30 121 7 105/56 (72) 98 06/24/19 14:00 96/70 06/24/19 14:00 28 139/69 Mechanical Ventilator 30 06/24/19 14:00 98 17 96/70 (79) 98 06/24/19 13:30 96 10 113/63 (80) 99 06/24/19 13:00 136/68 06/24/19 13:00 20 105/56 Mechanical Ventilator 30 06/24/19 13:00 98.0 99 11 136/68 (90) 99 06/24/19 12:00 91 17 139/75 (96) 100 06/24/19 12:00 30 06/24/19 12:00 139/75 06/24/19 12:00 26 139/75 Mechanical Ventilator 30 06/24/19 12:00 94 06/24/19 12:00 Mechanical Ventilator 06/24/19 11:30 84 22 127/64 (85) 100 06/24/19 11:10 83 26 100 Mechanical Ventilator 30 83 26 30 06/24/19 11:00 117/59 06/24/19 11:00 22 117/59 Mechanical Ventilator 30 06/24/19 11:00 84 24 117/59 (78) 100 06/24/19 10:30 95 15 100/71 (81) 99 06/24/19 10:00 70/40 06/24/19 10:00 22 77/51 Mechanical Ventilator 30 06/24/19 10:00 84 23 77/51 (60) 99 06/24/19 09:30 91 24 73/47 (56) 97 06/24/19 09:00 24 77/45 30 06/24/19 09:00 101 21 77/45 (56) 97 06/24/19 08:30 136 20 122/61 (81) 97 06/24/19 08:00 Mechanical Ventilator 06/24/19 08:00 85 06/24/19 08:00 97.9 155 28 190/97 (128) 89 06/24/19 08:00 30 122/61 Mechanical Ventilator 30 06/24/19 08:00 30 06/24/19 07:30 102 24 149/114 (126) 96 06/24/19 07:10 120 30 97 Mechanical Ventilator 30 120 30 30 06/24/19 07:00 96/57 06/24/19 07:00 96 26 96/57 (70) 98 06/24/19 06:28 94 17 06/24/19 06:00 20 119/71 Mechanical Ventilator 30 06/24/19 06:00 17 119/71 Mechanical Ventilator 30 06/24/19 06:00 109 21 119/71 (87) 98 06/24/19 05:30 106 25 117/63 (81) 97 06/24/19 05:00 30 150/86 Mechanical Ventilator 30 06/24/19 05:00 120 25 150/86 (107) 97 06/24/19 04:30 127 29 181/94 (123) 95 06/24/19 04:00 Mechanical Ventilator 06/24/19 04:00 85 06/24/19 04:00 30 181/94 Mechanical Ventilator 30 06/24/19 04:00 30 06/24/19 04:00 97.8 84 26 136/71 (92) 100 06/24/19 03:37 99 26 30 06/24/19 03:30 80 26 137/66 (89) 100 06/24/19 03:00 20 137/66 Mechanical Ventilator 30 06/24/19 03:00 85 26 136/68 (90) 99 06/24/19 02:30 85 23 127/64 (85) 99 06/24/19 02:00 100 23 159/68 (98) 97 06/24/19 02:00 16 159/68 Mechanical Ventilator 30 06/24/19 01:30 87 17 116/61 (79) 99 06/24/19 01:00 95 16 113/57 (75) 99 06/24/19 01:00 16 113/57 Mechanical Ventilator 30 06/24/19 00:30 101 12 169/94 (119) 98 06/24/19 00:03 Mechanical Ventilator 06/24/19 00:00 102 06/24/19 00:00 97.8 89 16 113/72 (86) 98 06/24/19 00:00 16 113/72 Mechanical Ventilator 30 06/23/19 23:30 85 18 136/67 (90) 98 06/23/19 23:20 82 26 30 06/23/19 23:00 136/67 06/23/19 23:00 16 103/50 Mechanical Ventilator 30 06/23/19 23:00 76 16 103/50 (67) 100 06/23/19 22:30 76 16 112/56 (74) 100 06/23/19 22:00 78 16 128/60 (82) 98 06/23/19 22:00 17 128/60 Mechanical Ventilator 30 06/23/19 21:30 83 11 134/61 (85) 96 06/23/19 21:00 84 17 150/63 (92) 100 06/23/19 21:00 11 134/61 Mechanical Ventilator 30 06/23/19 21:00 134/61 Accucheck: 214 Critical Care - Subjective ROS Limited/Unobtainable: Yes Condition: stable FI02: 30 Vent Support Breath Rate: 26 Vent Support Mode: AC Vent Tidal Volume: 500 Sputum Amount: Scant PEEP: 5.0 PIP: 15 Tube Feeding Amount: 35 I&O: Intake and Output 06/23/19 06/24/19 19:00 07:00 Intake Total 707.96 ml 287.12 ml Output Total 0 ml 0 ml Balance 707.96 ml 287.12 ml Free Water 150 ml IV Total 137.96 ml 82.12 ml Tube Feeding 420 ml 175 ml Other 30 ml Output Urine Total 0 ml 0 ml # Bowel Movements 2 ET-Tube: 7.5 ET Position: 26 Arturo Mckeon MD June 24, 2019 20:36
--- NOTE | 2019-06-24 21:23 | General Progress Note ---
Assessment/Plan Problem List: (1) Anemia ICD Codes: D64.9 - Anemia, unspecified SNOMED: 582187899 (2) Renal failure ICD Codes: N19 - Unspecified kidney failure SNOMED: 94084062 (3) Suspected COVID-19 virus infection ICD Codes: R68.89 - Other general symptoms and signs SNOMED: 956322710 (4) HTN (hypertension) ICD Codes: I10 - Essential (primary) hypertension SNOMED: 83232587 (5) CASSANDRA (acute kidney injury) ICD Codes: N17.9 - Acute kidney failure, unspecified SNOMED: 3135075, 63288852 (6) Anemia in chronic kidney disease (CKD) ICD Codes: N18.9 - Chronic kidney disease, unspecified; D63.1 - Anemia in chronic kidney disease SNOMED: 714123172 (7) Suspected COVID-19 virus infection ICD Codes: R68.89 - Other general symptoms and signs SNOMED: 711823964 Status: unchanged Assessment/Plan: Hd per renal low k.replacement per renal pna covid positve resp failure sepsis hyponatrmia leukoytosis poor prognosis htn Subjective ROS Limited/Unobtainable: Yes Allergies: Coded Allergies: No Known Allergies (Unverified , 05/28/19) Objective Last 24 Hour Vital Signs Date Time Temp Pulse Resp B/P (MAP) Pulse Ox O2 Delivery O2 Flow Rate FiO2 06/24/19 19:20 97 31 100 Mechanical Ventilator 30 98 31 30 06/24/19 19:00 93 4 122/62 (82) 100 06/24/19 19:00 24 122/62 Mechanical Ventilator 30 06/24/19 19:00 122/62 06/24/19 18:30 86 26 149/70 (96) 100 06/24/19 18:00 98.6 81 21 112/58 (76) 100 06/24/19 18:00 28 122/58 Mechanical Ventilator 30 06/24/19 18:00 112/58 06/24/19 17:00 26 115/55 Mechanical Ventilator 30 06/24/19 17:00 115/55 06/24/19 17:00 87 23 107/57 (74) 99 06/24/19 16:30 111 28 135/73 (93) 100 06/24/19 16:00 103 06/24/19 16:00 101 18 86/53 (64) 100 06/24/19 16:00 Mechanical Ventilator 06/24/19 16:00 23 113/70 Mechanical Ventilator 30 06/24/19 16:00 113/70 06/24/19 16:00 30 06/24/19 15:10 137 43 97 Mechanical Ventilator 30 137 43 30 06/24/19 15:08 17 139/75 Mechanical Ventilator 70.0 30 06/24/19 15:00 139/69 06/24/19 15:00 120 26 139/69 (92) 97 06/24/19 14:30 121 7 105/56 (72) 98 06/24/19 14:00 96/70 06/24/19 14:00 28 139/69 Mechanical Ventilator 30 06/24/19 14:00 98 17 96/70 (79) 98 06/24/19 13:30 96 10 113/63 (80) 99 06/24/19 13:00 136/68 06/24/19 13:00 20 105/56 Mechanical Ventilator 30 06/24/19 13:00 98.0 99 11 136/68 (90) 99 06/24/19 12:00 91 17 139/75 (96) 100 06/24/19 12:00 30 06/24/19 12:00 139/75 06/24/19 12:00 26 139/75 Mechanical Ventilator 30 06/24/19 12:00 94 06/24/19 12:00 Mechanical Ventilator 06/24/19 11:30 84 22 127/64 (85) 100 06/24/19 11:10 83 26 100 Mechanical Ventilator 30 83 26 30 06/24/19 11:00 117/59 06/24/19 11:00 22 117/59 Mechanical Ventilator 30 06/24/19 11:00 84 24 117/59 (78) 100 06/24/19 10:30 95 15 100/71 (81) 99 06/24/19 10:00 70/40 06/24/19 10:00 22 77/51 Mechanical Ventilator 30 06/24/19 10:00 84 23 77/51 (60) 99 06/24/19 09:30 91 24 73/47 (56) 97 06/24/19 09:00 24 77/45 30 06/24/19 09:00 101 21 77/45 (56) 97 06/24/19 08:30 136 20 122/61 (81) 97 06/24/19 08:00 Mechanical Ventilator 06/24/19 08:00 85 06/24/19 08:00 97.9 155 28 190/97 (128) 89 06/24/19 08:00 30 122/61 Mechanical Ventilator 30 06/24/19 08:00 30 06/24/19 07:30 102 24 149/114 (126) 96 06/24/19 07:10 120 30 97 Mechanical Ventilator 30 120 30 30 06/24/19 07:00 96/57 06/24/19 07:00 96 26 96/57 (70) 98 06/24/19 06:28 94 17 06/24/19 06:00 20 119/71 Mechanical Ventilator 30 06/24/19 06:00 17 119/71 Mechanical Ventilator 30 06/24/19 06:00 109 21 119/71 (87) 98 06/24/19 05:30 106 25 117/63 (81) 97 06/24/19 05:00 30 150/86 Mechanical Ventilator 30 06/24/19 05:00 120 25 150/86 (107) 97 06/24/19 04:30 127 29 181/94 (123) 95 06/24/19 04:00 Mechanical Ventilator 06/24/19 04:00 85 06/24/19 04:00 30 181/94 Mechanical Ventilator 30 06/24/19 04:00 30 06/24/19 04:00 97.8 84 26 136/71 (92) 100 06/24/19 03:37 99 26 30 06/24/19 03:30 80 26 137/66 (89) 100 06/24/19 03:00 20 137/66 Mechanical Ventilator 30 06/24/19 03:00 85 26 136/68 (90) 99 06/24/19 02:30 85 23 127/64 (85) 99 06/24/19 02:00 100 23 159/68 (98) 97 06/24/19 02:00 16 159/68 Mechanical Ventilator 30 06/24/19 01:30 87 17 116/61 (79) 99 06/24/19 01:00 95 16 113/57 (75) 99 06/24/19 01:00 16 113/57 Mechanical Ventilator 30 06/24/19 00:30 101 12 169/94 (119) 98 06/24/19 00:03 Mechanical Ventilator 06/24/19 00:00 102 06/24/19 00:00 97.8 89 16 113/72 (86) 98 06/24/19 00:00 16 113/72 Mechanical Ventilator 30 06/23/19 23:30 85 18 136/67 (90) 98 06/23/19 23:20 82 26 30 06/23/19 23:00 136/67 06/23/19 23:00 16 103/50 Mechanical Ventilator 30 06/23/19 23:00 76 16 103/50 (67) 100 06/23/19 22:30 76 16 112/56 (74) 100 06/23/19 22:00 78 16 128/60 (82) 98 06/23/19 22:00 17 128/60 Mechanical Ventilator 30 06/23/19 21:30 83 11 134/61 (85) 96 Intake and Output 06/23/19 06/24/19 19:00 07:00 Intake Total 707.96 ml 287.12 ml Output Total 0 ml 0 ml Balance 707.96 ml 287.12 ml Free Water 150 ml IV Total 137.96 ml 82.12 ml Tube Feeding 420 ml 175 ml Other 30 ml Output Urine Total 0 ml 0 ml # Bowel Movements 2 Laboratory Tests 06/24/19 05:23: White Blood Count 11.8H, Red Blood Count 2.81L, Hemoglobin 8.3L, Hematocrit 25.9L, Mean Corpuscular Volume 92, Mean Corpuscular Hemoglobin 29.5, Mean Corpuscular Hemoglobin Concent 31.9L, Red Cell Distribution Width 17.7H, Platelet Count 255, Mean Platelet Volume 7.3, Neutrophils (%) (Auto) , Lymphocytes (%) (Auto) , Monocytes (%) (Auto) , Eosinophils (%) (Auto) , Basophils (%) (Auto) , Differential Total Cells Counted 100, Neutrophils % ( Manual) 90H, Lymphocytes % (Manual) 6L, Monocytes % (Manual) 4, Eosinophils % ( Manual) 0, Basophils % (Manual) 0, Band Neutrophils 0, Platelet Estimate Adequate, Platelet Morphology Normal, Hypochromasia 2+, Anisocytosis 2+, Sodium Level 130L, Potassium Level 3.3L, Chloride Level 91L, Carbon Dioxide Level 24, Anion Gap 15, Blood Urea Nitrogen 61H, Creatinine 7.4H, Estimat Glomerular Filtration Rate 7.4, Glucose Level 212H, Calcium Level 8.5, Phosphorus Level 4.5 , Magnesium Level 2.4, Total Bilirubin 0.4, Aspartate Amino Transf (AST/SGOT) 20 , Alanine Aminotransferase (ALT/SGPT) 10L, Alkaline Phosphatase 86, C-Reactive Protein, Quantitative 17.9H, Total Protein 7.2, Albumin 1.6L, Globulin 5.6, Albumin/Globulin Ratio 0.3L Height (Feet): 6 Height (Inches): 1.00 Weight (Pounds): 244 Karishma Mulligan MD June 24, 2019 21:23
[2019-06-25] VITALS (43 sets, daily range): BP systolic 82–173; BP diastolic 49–87
[2019-06-25] MEDS: Albuterol 90mcg Inhaler 8gm INH SCH ×6 (03:28→23:53)
[2019-06-25] MEDS: Renvela 800mg Pkt NG SCH ×2 (06:08→21:30)
[2019-06-25] MEDS: NovoLOG Insulin Flexpen SUBQ SCH ×4 (06:09→23:34)
[2019-06-25] MEDS: fentaNYL 2500mcg/NS 250ml IV SCH ×2 (06:11→22:47)
[2019-06-25 07:27] LABS: HEMATOCRIT 25.1 % (42.0-52.0); HEMOGLOBIN 8.1 G/DL (14.2-18.0); MEAN CORPUSCULAR VOLUME 93 FL (80-99); PLATELET COUNT 285 K/UL (150-450); RED CELL DISTRIBUTION WIDTH 18.1 % (11.6-14.8); WHITE BLOOD COUNT 11.2 K/UL (4.8-10.8)
[2019-06-25 07:42] LABS: ALANINE AMINOTRANSFERASE 10 U/L (12-78); ALBUMIN 1.6 G/DL (3.4-5.0); ALBUMIN/GLOBULIN RATIO 0.3 (1.0-2.7); ALKALINE PHOSPHATASE 88 U/L (46-116); ANION GAP 13 mmol/L (5-15); ASPARTATE AMINO TRANSFERASE 23 U/L (15-37); BILIRUBIN,TOTAL 0.3 MG/DL (0.2-1.0); BLOOD UREA NITROGEN 47 mg/dL (7-18); CALCIUM 8.7 MG/DL (8.5-10.1); CARBON DIOXIDE 27 MMOL/L (21-32); CHLORIDE 95 MMOL/L (98-107); CREATININE 5.8 MG/DL (0.55-1.30); PHOSPHORUS 2.9 MG/DL (2.5-4.9); POTASSIUM 3.1 MMOL/L (3.5-5.1); SODIUM 135 MMOL/L (136-145)
[2019-06-25] MEDS: Docusate 100mg/10ml Liq NG SCH ×3 (08:42→17:27)
[2019-06-25] MEDS: Midodrine 10mg tab NG SCH ×3 (08:42→17:27)
[2019-06-25] MEDS: Pantoprazole Inj IVP SCH (08:42)
[2019-06-25] MEDS: Enoxaparin 30mg Inj SUBQ SCH (08:43)
[2019-06-25] MEDS ORDERED: Sterile Water Irrig 1000ml IRRIG ONE (09:27)
--- NOTE | 2019-06-25 10:13 | Infectious Diseases Prog Note ---
Assessment/Plan Assessment/Plan IMPRESSION: 1. COVID19 pneumonia Positive: 05/27, 05/31 , 06/05, 06/09 ,06/17, 06/19 2. MRSA carrier. 3. Chronic kidney disease , end-stage renal disease. 4. COPD. 5. Hypertension. 6. Anemia. 7. Hypothyroidism. 8. Hyperlipidemia. 9. Major depression. 10. Leukocytosis 11. Hypotension 12. Hepatitis C 13. Hyperuricemia 14. Diarrhea 15. septic shock 16. Leukocytosis improving RECOMMENDATIONS: Observe off of antibiotic Finished hydroxychloroquine. Will f/u COVID19 test Subjective ROS Limited/Unobtainable: Yes Respiratory: Reports: other - on weaning process Allergies: Coded Allergies: No Known Allergies (Unverified , 05/28/19) Objective Vital Signs Last 24 Hour Vital Signs Date Time Temp Pulse Resp B/P (MAP) Pulse Ox O2 Delivery O2 Flow Rate FiO2 06/25/19 09:02 98 06/25/19 09:00 98 28 116/63 (80) 98 06/25/19 08:00 Mechanical Ventilator 06/25/19 08:00 99.5 78 27 96/58 (71) 98 06/25/19 07:24 98 26 100 Mechanical Ventilator 30 98 30 30 30 06/25/19 07:00 24 92/55 Mechanical Ventilator 30 06/25/19 07:00 77 25 97/62 (74) 100 06/25/19 06:30 86 26 06/25/19 06:30 86 10 116/73 (87) 100 06/25/19 06:11 31 165/104 Mechanical Ventilator 30 06/25/19 06:00 99 21 113/60 (77) 97 06/25/19 06:00 21 113/60 Mechanical Ventilator 30 06/25/19 05:30 108 29 142/71 (94) 98 06/25/19 05:00 123 22 165/74 (104) 98 06/25/19 05:00 22 165/74 Mechanical Ventilator 30 06/25/19 04:30 91 27 117/61 (79) 98 06/25/19 04:00 91 27 119/60 (79) 98 06/25/19 04:00 91 06/25/19 04:00 Mechanical Ventilator 06/25/19 04:00 30 06/25/19 04:00 27 119/60 Mechanical Ventilator 30 06/25/19 03:30 92 26 148/71 (96) 98 06/25/19 03:21 78 26 100 Mechanical Ventilator 30 80 26 30 06/25/19 03:00 27 154/76 Mechanical Ventilator 30 06/25/19 03:00 98 8 157/57 (90) 99 06/25/19 02:30 79 23 109/56 (73) 98 06/25/19 02:00 82 21 143/64 (90) 100 06/25/19 02:00 26 126/63 Mechanical Ventilator 30 06/25/19 01:30 81 17 126/63 (84) 99 06/25/19 01:00 24 143/64 Mechanical Ventilator 30 06/25/19 01:00 81 24 117/66 (83) 99 06/25/19 00:30 79 26 121/62 (81) 99 06/25/19 00:00 Mechanical Ventilator 06/25/19 00:00 98.5 89 16 163/67 (99) 99 06/25/19 00:00 24 163/67 Mechanical Ventilator 30 06/24/19 23:30 101 20 160/75 (103) 99 06/24/19 23:13 91 31 100 Mechanical Ventilator 30 92 32 30 06/24/19 23:00 87 21 132/66 (88) 100 06/24/19 23:00 26 132/66 Mechanical Ventilator 30 06/24/19 22:30 89 24 143/67 (92) 100 06/24/19 22:00 85 20 147/102 (117) 100 06/24/19 22:00 22 147/102 Mechanical Ventilator 30 06/24/19 21:30 93 24 148/68 (94) 96 06/24/19 21:00 26 149/64 Mechanical Ventilator 30 06/24/19 21:00 79 24 149/64 (92) 100 06/24/19 20:30 75 28 101/56 (71) 99 06/24/19 20:00 Mechanical Ventilator 06/24/19 20:00 76 06/24/19 20:00 27 115/54 Mechanical Ventilator 30 06/24/19 20:00 30 06/24/19 20:00 98.7 81 28 115/54 (74) 99 06/24/19 19:30 85 30 89/52 (64) 100 06/24/19 19:20 97 31 100 Mechanical Ventilator 30 98 31 30 06/24/19 19:00 93 4 122/62 (82) 100 06/24/19 19:00 24 122/62 Mechanical Ventilator 30 06/24/19 19:00 122/62 06/24/19 18:30 86 26 149/70 (96) 100 06/24/19 18:00 98.6 81 21 112/58 (76) 100 06/24/19 18:00 28 122/58 Mechanical Ventilator 30 06/24/19 18:00 112/58 06/24/19 17:00 26 115/55 Mechanical Ventilator 30 06/24/19 17:00 115/55 06/24/19 17:00 87 23 107/57 (74) 99 06/24/19 16:30 111 28 135/73 (93) 100 06/24/19 16:00 103 06/24/19 16:00 101 18 86/53 (64) 100 06/24/19 16:00 Mechanical Ventilator 06/24/19 16:00 23 113/70 Mechanical Ventilator 30 06/24/19 16:00 113/70 06/24/19 16:00 30 06/24/19 15:10 137 43 97 Mechanical Ventilator 30 137 43 30 06/24/19 15:08 17 139/75 Mechanical Ventilator 70.0 30 06/24/19 15:00 139/69 06/24/19 15:00 120 26 139/69 (92) 97 06/24/19 14:30 121 7 105/56 (72) 98 06/24/19 14:00 96/70 06/24/19 14:00 28 139/69 Mechanical Ventilator 30 06/24/19 14:00 98 17 96/70 (79) 98 06/24/19 13:30 96 10 113/63 (80) 99 06/24/19 13:00 136/68 06/24/19 13:00 20 105/56 Mechanical Ventilator 30 06/24/19 13:00 98.0 99 11 136/68 (90) 99 06/24/19 12:00 91 17 139/75 (96) 100 06/24/19 12:00 30 06/24/19 12:00 139/75 06/24/19 12:00 26 139/75 Mechanical Ventilator 30 06/24/19 12:00 94 06/24/19 12:00 Mechanical Ventilator 06/24/19 11:30 84 22 127/64 (85) 100 06/24/19 11:10 83 26 100 Mechanical Ventilator 30 83 26 30 06/24/19 11:00 117/59 06/24/19 11:00 22 117/59 Mechanical Ventilator 30 06/24/19 11:00 84 24 117/59 (78) 100 06/24/19 10:30 95 15 100/71 (81) 99 Height (Feet): 6 Height (Inches): 1.00 Weight (Pounds): 245 HEENT: other - orally intubated Respiratory/Chest: other - on Ventilator Cardiovascular: normal rate, other - L subclavian central line, R femoral HD Abdomen: soft, non tender Extremities: other - edema Neurologic/Psychiatric: other - Opens eyes Laboratory Tests Test 06/25/19 03:45 06/25/19 08:35 White Blood Count 11.2 K/UL (4.8-10.8) H Red Blood Count 2.70 M/UL (4.70-6.10) L Hemoglobin 8.1 G/DL (14.2-18.0) L Hematocrit 25.1 % (42.0-52.0) L Mean Corpuscular Volume 93 FL (80-99) Mean Corpuscular Hemoglobin 30.1 PG (27.0-31.0) Mean Corpuscular Hemoglobin Concent 32.5 G/DL (32.0-36.0) Red Cell Distribution Width 18.1 % (11.6-14.8) H Platelet Count 285 K/UL (150-450) Mean Platelet Volume 6.9 FL (6.5-10.1) Neutrophils (%) (Auto) % (45.0-75.0) Lymphocytes (%) (Auto) % (20.0-45.0) Monocytes (%) (Auto) % (1.0-10.0) Eosinophils (%) (Auto) % (0.0-3.0) Basophils (%) (Auto) % (0.0-2.0) Differential Total Cells Counted 100 Neutrophils % (Manual) 92 % (45-75) H Lymphocytes % (Manual) 2 % (20-45) L Monocytes % (Manual) 5 % (1-10) Eosinophils % (Manual) 1 % (0-3) Basophils % (Manual) 0 % (0-2) Band Neutrophils 0 % (0-8) Platelet Estimate Adequate Platelet Morphology Normal Polychromasia 1+ Anisocytosis 1+ Sodium Level 135 MMOL/L (136-145) L Potassium Level 3.1 MMOL/L (3.5-5.1) L Chloride Level 95 MMOL/L (98-107) L Carbon Dioxide Level 27 MMOL/L (21-32) Anion Gap 13 mmol/L (5-15) Blood Urea Nitrogen 47 mg/dL (7-18) H Creatinine 5.8 MG/DL (0.55-1.30) H Estimat Glomerular Filtration Rate 9.8 mL/min (>60) Glucose Level 160 MG/DL (74-106) H Calcium Level 8.7 MG/DL (8.5-10.1) Phosphorus Level 2.9 MG/DL (2.5-4.9) Magnesium Level 2.2 MG/DL (1.8-2.4) Total Bilirubin 0.3 MG/DL (0.2-1.0) Aspartate Amino Transf (AST/SGOT) 23 U/L (15-37) Alanine Aminotransferase (ALT/SGPT) 10 U/L (12-78) L Alkaline Phosphatase 88 U/L (46-116) C-Reactive Protein, Quantitative 23.3 mg/dL (0.00-0.90) H Total Protein 7.2 G/DL (6.4-8.2) Albumin 1.6 G/DL (3.4-5.0) L Globulin 5.6 g/dL Albumin/Globulin Ratio 0.3 (1.0-2.7) L Arterial Blood pH 7.431 (7.350-7.450) Arterial Blood Partial Pressure CO2 40.4 mmHg (35.0-45.0) Arterial Blood Partial Pressure O2 91.1 mmHg (75.0-100.0) Arterial Blood HCO3 26.3 mmol/L (22.0-26.0) H Arterial Blood Oxygen Saturation 97.2 % (95-100) Arterial Blood Base Excess 1.8 (-2-2) Kosta Test Positive Current Medications Medications (Trade) Dose Ordered Sig/Anthony Route PRN Reason Start Time Stop Time Status Last Admin Dose Admin Acetaminophen (Tylenol) 650 mg Q4H PRN NG Temp >100.5 06/13/19 11:00 07/13/19 10:59 06/20/19 17:38 Albuterol Sulfate (Proventil MDI) 2 puff Q4HRT INH 06/06/19 23:00 08/30/19 18:59 06/25/19 07:22 Chlorhexidine Gluconate (Michelle-Hex 2%) 1 applic DAILY@2000 TOPIC 06/07/19 20:00 09/05/19 19:59 06/24/19 20:55 Dextrose (Dextrose 50%) 25 ml Q30M PRN IV Hypoglycemia 06/20/19 19:30 09/18/19 19:29 Dextrose (Dextrose 50%) 50 ml Q30M PRN IV Hypoglycemia 06/20/19 19:30 09/18/19 19:29 Docusate Sodium (Colace) 100 mg THREE TIMES A DAY NG 06/07/19 13:00 07/07/19 12:59 06/25/19 08:42 Dopamine HCl/ Dextrose 250 ml @ 0 mls/hr Q24H PRN IV For hypotension 06/13/19 08:15 09/11/19 08:14 Enoxaparin Sodium (Lovenox) 30 mg DAILY SUBQ 06/07/19 09:00 08/27/19 08:59 06/25/19 08:43 Epoetin Aftba (Epoetin Aftab(ESRD on dialysis)) 10,000 unit SUBQ 06/07/19 21:00 08/31/19 20:59 06/23/19 21:09 Fentanyl Citrate 250 ml @ 0 mls/hr Q24H IV 06/24/19 06:00 09/22/19 05:59 06/25/19 06:11 Hydralazine HCl (Apresoline) 10 mg Q4H PRN IV Blood pressure over 160 systol 06/07/19 10:15 09/05/19 10:14 Insulin Aspart (NovoLOG) EVERY 6 HOURS SUBQ 06/21/19 00:00 09/19/19 00:00 06/25/19 06:09 Metoclopramide HCl (Reglan) 5 mg Q8H PRN IVP Nausea & Vomiting 06/18/19 12:00 07/18/19 11:59 06/19/19 00:50 Midodrine (Pro-Amatine) 10 mg THREE TIMES A DAY NG 06/09/19 13:00 09/07/19 12:59 06/25/19 08:42 Norepinephrine Bitartrate 8 mg/ Dextrose 283 ml @ 0 mls/hr Q24H IV 06/23/19 23:00 07/23/19 22:59 06/24/19 10:00 Pantoprazole (Protonix) 40 mg DAILY IVP 06/19/19 09:00 07/19/19 08:59 06/25/19 08:42 Potassium Chloride 100 ml @ 50 mls/hr ONCE ONCE IVPB 06/25/19 08:30 06/25/19 10:29 06/25/19 08:42 Sevelamer Carbonate (Renvela) 1,600 mg Q6HR NG 06/14/19 12:00 09/05/19 12:59 06/25/19 06:08 Ted Leyva MD June 25, 2019 10:13
--- NOTE | 2019-06-25 10:23 | General Progress Note ---
Assessment/Plan Status: unchanged Assessment/Plan: 1. Diabetes. 2. Hypertension. 3. Coronary artery disease. 4. COPD. 5. Psychiatric disorder with schizophrenia. 6. History of hepatitis C. 7. HLP. 8. Chronic kidney disease, now with acute renal failure. 9. Anemia. 10. Hypothyroidism. 11. Spinal stenosis. 12. Constipation. 13. GERD. 14. COVID positive HD per nephrology tolerating TF recent labs and notes reviewed TF nephro at 35 cc and tolerated stable H&H will fu Subjective ROS Limited/Unobtainable: No Allergies: Coded Allergies: No Known Allergies (Unverified , 05/28/19) Objective Last 24 Hour Vital Signs Date Time Temp Pulse Resp B/P (MAP) Pulse Ox O2 Delivery O2 Flow Rate FiO2 06/25/19 10:00 107 28 169/87 (114) 98 06/25/19 09:02 98 06/25/19 09:00 98 28 116/63 (80) 98 06/25/19 08:00 Mechanical Ventilator 06/25/19 08:00 99.5 78 27 96/58 (71) 98 06/25/19 07:24 98 26 100 Mechanical Ventilator 30 98 30 30 30 06/25/19 07:00 24 92/55 Mechanical Ventilator 30 06/25/19 07:00 77 25 97/62 (74) 100 06/25/19 06:30 86 26 06/25/19 06:30 86 10 116/73 (87) 100 06/25/19 06:11 31 165/104 Mechanical Ventilator 30 06/25/19 06:00 99 21 113/60 (77) 97 06/25/19 06:00 21 113/60 Mechanical Ventilator 30 06/25/19 05:30 108 29 142/71 (94) 98 06/25/19 05:00 123 22 165/74 (104) 98 06/25/19 05:00 22 165/74 Mechanical Ventilator 30 06/25/19 04:30 91 27 117/61 (79) 98 06/25/19 04:00 91 27 119/60 (79) 98 06/25/19 04:00 91 06/25/19 04:00 Mechanical Ventilator 06/25/19 04:00 30 06/25/19 04:00 27 119/60 Mechanical Ventilator 30 06/25/19 03:30 92 26 148/71 (96) 98 06/25/19 03:21 78 26 100 Mechanical Ventilator 30 80 26 30 06/25/19 03:00 27 154/76 Mechanical Ventilator 30 06/25/19 03:00 98 8 157/57 (90) 99 06/25/19 02:30 79 23 109/56 (73) 98 06/25/19 02:00 82 21 143/64 (90) 100 06/25/19 02:00 26 126/63 Mechanical Ventilator 30 06/25/19 01:30 81 17 126/63 (84) 99 06/25/19 01:00 24 143/64 Mechanical Ventilator 30 06/25/19 01:00 81 24 117/66 (83) 99 06/25/19 00:30 79 26 121/62 (81) 99 06/25/19 00:00 Mechanical Ventilator 06/25/19 00:00 98.5 89 16 163/67 (99) 99 06/25/19 00:00 24 163/67 Mechanical Ventilator 30 06/24/19 23:30 101 20 160/75 (103) 99 06/24/19 23:13 91 31 100 Mechanical Ventilator 30 92 32 30 06/24/19 23:00 87 21 132/66 (88) 100 06/24/19 23:00 26 132/66 Mechanical Ventilator 30 06/24/19 22:30 89 24 143/67 (92) 100 06/24/19 22:00 85 20 147/102 (117) 100 06/24/19 22:00 22 147/102 Mechanical Ventilator 30 06/24/19 21:30 93 24 148/68 (94) 96 06/24/19 21:00 26 149/64 Mechanical Ventilator 30 06/24/19 21:00 79 24 149/64 (92) 100 06/24/19 20:30 75 28 101/56 (71) 99 06/24/19 20:00 Mechanical Ventilator 06/24/19 20:00 76 06/24/19 20:00 27 115/54 Mechanical Ventilator 30 06/24/19 20:00 30 06/24/19 20:00 98.7 81 28 115/54 (74) 99 06/24/19 19:30 85 30 89/52 (64) 100 06/24/19 19:20 97 31 100 Mechanical Ventilator 30 98 31 30 06/24/19 19:00 93 4 122/62 (82) 100 06/24/19 19:00 24 122/62 Mechanical Ventilator 30 06/24/19 19:00 122/62 06/24/19 18:30 86 26 149/70 (96) 100 06/24/19 18:00 98.6 81 21 112/58 (76) 100 06/24/19 18:00 28 122/58 Mechanical Ventilator 30 06/24/19 18:00 112/58 06/24/19 17:00 26 115/55 Mechanical Ventilator 30 06/24/19 17:00 115/55 06/24/19 17:00 87 23 107/57 (74) 99 06/24/19 16:30 111 28 135/73 (93) 100 06/24/19 16:00 103 06/24/19 16:00 101 18 86/53 (64) 100 06/24/19 16:00 Mechanical Ventilator 06/24/19 16:00 23 113/70 Mechanical Ventilator 30 06/24/19 16:00 113/70 06/24/19 16:00 30 06/24/19 15:10 137 43 97 Mechanical Ventilator 30 137 43 30 06/24/19 15:08 17 139/75 Mechanical Ventilator 70.0 30 06/24/19 15:00 139/69 06/24/19 15:00 120 26 139/69 (92) 97 06/24/19 14:30 121 7 105/56 (72) 98 06/24/19 14:00 96/70 06/24/19 14:00 28 139/69 Mechanical Ventilator 30 06/24/19 14:00 98 17 96/70 (79) 98 06/24/19 13:30 96 10 113/63 (80) 99 06/24/19 13:00 136/68 06/24/19 13:00 20 105/56 Mechanical Ventilator 30 06/24/19 13:00 98.0 99 11 136/68 (90) 99 06/24/19 12:00 91 17 139/75 (96) 100 06/24/19 12:00 30 06/24/19 12:00 139/75 06/24/19 12:00 26 139/75 Mechanical Ventilator 30 06/24/19 12:00 94 06/24/19 12:00 Mechanical Ventilator 06/24/19 11:30 84 22 127/64 (85) 100 06/24/19 11:10 83 26 100 Mechanical Ventilator 30 83 26 30 06/24/19 11:00 117/59 06/24/19 11:00 22 117/59 Mechanical Ventilator 30 06/24/19 11:00 84 24 117/59 (78) 100 06/24/19 10:30 95 15 100/71 (81) 99 Intake and Output 06/24/19 06/25/19 19:00 07:00 Intake Total 690.65 ml 820 ml Output Total 3050 ml 10 ml Balance -2359.35 ml 810 ml Free Water 90 ml 160 ml IV Total 180.65 ml 240 ml Tube Feeding 420 ml 420 ml Output Urine Total 50 ml 10 ml Hemodialysis UF 3000 ml # Bowel Movements 3 1 Laboratory Tests 06/25/19 03:45: White Blood Count 11.2H, Red Blood Count 2.70L, Hemoglobin 8.1L, Hematocrit 25.1L, Mean Corpuscular Volume 93, Mean Corpuscular Hemoglobin 30.1, Mean Corpuscular Hemoglobin Concent 32.5, Red Cell Distribution Width 18.1H, Platelet Count 285, Mean Platelet Volume 6.9, Neutrophils (%) (Auto) , Lymphocytes (%) (Auto) , Monocytes (%) (Auto) , Eosinophils (%) (Auto) , Basophils (%) (Auto) , Differential Total Cells Counted 100, Neutrophils % ( Manual) 92H, Lymphocytes % (Manual) 2L, Monocytes % (Manual) 5, Eosinophils % ( Manual) 1, Basophils % (Manual) 0, Band Neutrophils 0, Platelet Estimate Adequate, Platelet Morphology Normal, Polychromasia 1+, Anisocytosis 1+, Sodium Level 135L, Potassium Level 3.1L, Chloride Level 95L, Carbon Dioxide Level 27, Anion Gap 13, Blood Urea Nitrogen 47H, Creatinine 5.8H, Estimat Glomerular Filtration Rate 9.8, Glucose Level 160H, Calcium Level 8.7, Phosphorus Level 2.9 , Magnesium Level 2.2, Total Bilirubin 0.3, Aspartate Amino Transf (AST/SGOT) 23 , Alanine Aminotransferase (ALT/SGPT) 10L, Alkaline Phosphatase 88, C-Reactive Protein, Quantitative 23.3H, Total Protein 7.2, Albumin 1.6L, Globulin 5.6, Albumin/Globulin Ratio 0.3L 06/25/19 08:35: Arterial Blood pH 7.431, Arterial Blood Partial Pressure CO2 40.4, Arterial Blood Partial Pressure O2 91.1, Arterial Blood HCO3 26.3H, Arterial Blood Oxygen Saturation 97.2, Arterial Blood Base Excess 1.8, Kosta Test Positive Height (Feet): 6 Height (Inches): 1.00 Weight (Pounds): 245 General Appearance: no apparent distress EENT: normal ENT inspection Neck: supple Cardiovascular: normal rate Respiratory/Chest: decreased breath sounds Abdomen: normal bowel sounds, non tender, soft Extremities: non-tender Marito Ramires MD June 25, 2019 10:23
--- NOTE | 2019-06-25 12:10 | Nephrology Progress Note ---
Assessment/Plan Problem List: (1) CASSANDRA (acute kidney injury) (2) Anemia in chronic kidney disease (CKD) (3) HTN (hypertension) (4) COVID-19 Assessment Acute renal failure most likely superimposed on chronic kidney disease Suspected COVID-19 virus infection Possible Pneumonia, lymphopenia, elevated AST Cardiomegaly, possible CHF COPD Hypertension Anemia, most likely related to chronic kidney disease Plan June 15: Status unchanged Dialyzed yesterday will dialyze again tomorrow Potassium supplements given Discussed with RN June 14: Due dialysis today Status: Remains intubated on ventilator June 22: Status unchanged Dialyzed yesterday and due for dialysis tomorrow Serum sodium stable today June 21 Remains intubated on ventilator Due dialysis today Emphasized high sodium bath for dialysis June 20: Remains intubated on ventilator Dialyzed June 19 next dialysis June 21 Serum sodium 128, will give 250 cc 3% saline Remains full code Discussed with RN Iron panel ordered June 19: Discussed with RN. Patient due for dialysis today. Continue pulmonary support. Remains full code. June 18: Patient dialyzed yesterday June 17 Serum sodium improved but still low Arrange for dialysis tomorrow June 19 Continue per consultants June 8: Due for dialysis today Today's lab reviewed, low serum sodium noted, Emphasized on high sodium bath to dialysis nurse Discussed with SHANIQUE Yuen June 16: Dialyzed yesterday Remains intubated Labs reviewed, serum sodium 131 Plan to dialyze tomorrow June 17 with high sodium bath Discussed with SHANIQUE Yuen June 6: Due for dialysis today Labs reviewed Discussed with RN Transfuse 1 unit of packed RBCs today for low hemoglobin of 7.1 June 5: Blood pressure well maintained Receive dialysis June 13 next hemodialysis June 15June 4: Discussed with RN in ICU Patient did not receive proper dialysis yesterday due to dialysis catheter malfunction Catheter to be adjusted today and dialyzed to be resumed today Continue per consultants Positive for COVID 28 June 2: Patient now intubated on mechanical ventilation Discussed with SHANIQUE Yuen today June 12 Patient received dialysis yesterday June 10 next hemodialysis June 12 Blood pressure better maintained Today's labs reviewed Continue per consultants Previously patient received dialysis last evening June 05, next dialysis June 07 which was incomplete due to patient's hypotension Will start on midodrine for blood pressure support. Meanwhile continue other pressors as needed Previously Patient is doing poorly, septic, white blood cells are rising, Hypotension somewhat improved We will keep n.p.o. , NG tube for medications, and change medication to IV as needed Patient remains full code Monitor vancomycin level Previously: Patient pulled out his femoral catheter yesterday June 03 which was reinserted by Dr. Mast Patient scheduled for dialysis again June 04, which again was not done due to dialysis nurse citing catheter malfunction Meanwhile continue management per ID, pulmonary , and psych. Meanwhile white blood cell count is rising. Patient blood pressure borderline low. Will check ABG Previously May 31 : I believe patient need dialysis treatment He however needs to competency assessment if can make decisions or not I will communicate with Dr. Mulligan Previously: Per pulmonary and ID advice Adjust blood pressure medication Renal diet Anemia work-up 2D echocardiogram refused Kidney ultrasound refused Jules catheter Urine studies Per orders Subjective ROS Limited/Unobtainable: Yes Objective Objective Last 24 Hour Vital Signs Date Time Temp Pulse Resp B/P (MAP) Pulse Ox O2 Delivery O2 Flow Rate FiO2 06/25/19 10:57 81 26 98 Mechanical Ventilator 30 96 28 30 06/25/19 10:00 107 28 169/87 (114) 98 06/25/19 09:02 98 06/25/19 09:00 98 28 116/63 (80) 98 06/25/19 08:00 Mechanical Ventilator 06/25/19 08:00 99.5 78 27 96/58 (71) 98 06/25/19 08:00 81 06/25/19 07:30 30 06/25/19 07:24 98 26 100 Mechanical Ventilator 30 98 30 30 30 06/25/19 07:00 24 92/55 Mechanical Ventilator 30 06/25/19 07:00 77 25 97/62 (74) 100 06/25/19 06:30 86 26 06/25/19 06:30 86 10 116/73 (87) 100 06/25/19 06:11 31 165/104 Mechanical Ventilator 30 06/25/19 06:00 99 21 113/60 (77) 97 06/25/19 06:00 21 113/60 Mechanical Ventilator 30 06/25/19 05:30 108 29 142/71 (94) 98 06/25/19 05:00 123 22 165/74 (104) 98 06/25/19 05:00 22 165/74 Mechanical Ventilator 30 06/25/19 04:30 91 27 117/61 (79) 98 06/25/19 04:00 91 27 119/60 (79) 98 06/25/19 04:00 91 06/25/19 04:00 Mechanical Ventilator 06/25/19 04:00 30 06/25/19 04:00 27 119/60 Mechanical Ventilator 30 06/25/19 03:30 92 26 148/71 (96) 98 06/25/19 03:21 78 26 100 Mechanical Ventilator 30 80 26 30 06/25/19 03:00 27 154/76 Mechanical Ventilator 30 06/25/19 03:00 98 8 157/57 (90) 99 06/25/19 02:30 79 23 109/56 (73) 98 06/25/19 02:00 82 21 143/64 (90) 100 06/25/19 02:00 26 126/63 Mechanical Ventilator 30 06/25/19 01:30 81 17 126/63 (84) 99 06/25/19 01:00 24 143/64 Mechanical Ventilator 30 06/25/19 01:00 81 24 117/66 (83) 99 06/25/19 00:30 79 26 121/62 (81) 99 06/25/19 00:00 Mechanical Ventilator 06/25/19 00:00 98.5 89 16 163/67 (99) 99 06/25/19 00:00 24 163/67 Mechanical Ventilator 30 06/24/19 23:30 101 20 160/75 (103) 99 06/24/19 23:13 91 31 100 Mechanical Ventilator 30 92 32 30 06/24/19 23:00 87 21 132/66 (88) 100 06/24/19 23:00 26 132/66 Mechanical Ventilator 30 06/24/19 22:30 89 24 143/67 (92) 100 06/24/19 22:00 85 20 147/102 (117) 100 06/24/19 22:00 22 147/102 Mechanical Ventilator 30 06/24/19 21:30 93 24 148/68 (94) 96 06/24/19 21:00 26 149/64 Mechanical Ventilator 30 06/24/19 21:00 79 24 149/64 (92) 100 06/24/19 20:30 75 28 101/56 (71) 99 06/24/19 20:00 Mechanical Ventilator 06/24/19 20:00 76 06/24/19 20:00 27 115/54 Mechanical Ventilator 30 06/24/19 20:00 30 5/14/20 20:00 98.7 81 28 115/54 (74) 99 06/24/19 19:30 85 30 89/52 (64) 100 06/24/19 19:20 97 31 100 Mechanical Ventilator 30 98 31 30 06/24/19 19:00 93 4 122/62 (82) 100 06/24/19 19:00 24 122/62 Mechanical Ventilator 30 06/24/19 19:00 122/62 06/24/19 18:30 86 26 149/70 (96) 100 06/24/19 18:00 98.6 81 21 112/58 (76) 100 06/24/19 18:00 28 122/58 Mechanical Ventilator 30 06/24/19 18:00 112/58 06/24/19 17:00 26 115/55 Mechanical Ventilator 30 06/24/19 17:00 115/55 06/24/19 17:00 87 23 107/57 (74) 99 06/24/19 16:30 111 28 135/73 (93) 100 06/24/19 16:00 103 06/24/19 16:00 101 18 86/53 (64) 100 06/24/19 16:00 Mechanical Ventilator 06/24/19 16:00 23 113/70 Mechanical Ventilator 30 06/24/19 16:00 113/70 06/24/19 16:00 30 06/24/19 15:10 137 43 97 Mechanical Ventilator 30 137 43 30 06/24/19 15:08 17 139/75 Mechanical Ventilator 70.0 30 06/24/19 15:00 139/69 06/24/19 15:00 120 26 139/69 (92) 97 06/24/19 14:30 121 7 105/56 (72) 98 06/24/19 14:00 96/70 06/24/19 14:00 28 139/69 Mechanical Ventilator 30 06/24/19 14:00 98 17 96/70 (79) 98 06/24/19 13:30 96 10 113/63 (80) 99 06/24/19 13:00 136/68 06/24/19 13:00 20 105/56 Mechanical Ventilator 30 06/24/19 13:00 98.0 99 11 136/68 (90) 99 Intake and Output 06/24/19 06/25/19 19:00 07:00 Intake Total 690.65 ml 820 ml Output Total 3050 ml 10 ml Balance -2359.35 ml 810 ml Free Water 90 ml 160 ml IV Total 180.65 ml 240 ml Tube Feeding 420 ml 420 ml Output Urine Total 50 ml 10 ml Hemodialysis UF 3000 ml # Bowel Movements 3 1 Current Medications Medications (Trade) Dose Ordered Sig/Anthony Route PRN Reason Start Time Stop Time Status Last Admin Dose Admin Acetaminophen (Tylenol) 650 mg Q4H PRN NG Temp >100.5 06/13/19 11:00 07/13/19 10:59 06/20/19 17:38 Albuterol Sulfate (Proventil MDI) 2 puff Q4HRT INH 06/06/19 23:00 08/30/19 18:59 06/25/19 10:56 Chlorhexidine Gluconate (Michelle-Hex 2%) 1 applic DAILY@2000 TOPIC 06/07/19 20:00 09/05/19 19:59 06/24/19 20:55 Dextrose (Dextrose 50%) 25 ml Q30M PRN IV Hypoglycemia 06/20/19 19:30 09/18/19 19:29 Dextrose (Dextrose 50%) 50 ml Q30M PRN IV Hypoglycemia 06/20/19 19:30 09/18/19 19:29 Docusate Sodium (Colace) 100 mg THREE TIMES A DAY NG 06/07/19 13:00 07/07/19 12:59 06/25/19 08:42 Dopamine HCl/ Dextrose 250 ml @ 0 mls/hr Q24H PRN IV For hypotension 06/13/19 08:15 09/11/19 08:14 Enoxaparin Sodium (Lovenox) 30 mg DAILY SUBQ 06/07/19 09:00 08/27/19 08:59 06/25/19 08:43 Epoetin Aftab (Epoetin Aftab(ESRD on dialysis)) 10,000 unit FRI-FRI-FRI SUBQ 06/07/19 21:00 08/31/19 20:59 06/23/19 21:09 Fentanyl Citrate 250 ml @ 0 mls/hr Q24H IV 06/24/19 06:00 09/22/19 05:59 06/25/19 06:11 Hydralazine HCl (Apresoline) 10 mg Q4H PRN IV Blood pressure over 160 systol 06/07/19 10:15 09/05/19 10:14 Insulin Aspart (NovoLOG) EVERY 6 HOURS SUBQ 06/21/19 00:00 09/19/19 00:00 06/25/19 06:09 Metoclopramide HCl (Reglan) 5 mg Q8H PRN IVP Nausea & Vomiting 06/18/19 12:00 07/18/19 11:59 06/19/19 00:50 Midodrine (Pro-Amatine) 10 mg THREE TIMES A DAY NG 06/09/19 13:00 09/07/19 12:59 06/25/19 08:42 Norepinephrine Bitartrate 8 mg/ Dextrose 283 ml @ 0 mls/hr Q24H IV 06/23/19 23:00 07/23/19 22:59 06/24/19 10:00 Pantoprazole (Protonix) 40 mg DAILY IVP 06/19/19 09:00 07/19/19 08:59 06/25/19 08:42 Sevelamer Carbonate (Renvela) 1,600 mg Q6HR NG 06/14/19 12:00 09/05/19 12:59 06/25/19 06:08 Laboratory Tests 06/25/19 03:45: White Blood Count 11.2H, Red Blood Count 2.70L, Hemoglobin 8.1L, Hematocrit 25.1L, Mean Corpuscular Volume 93, Mean Corpuscular Hemoglobin 30.1, Mean Corpuscular Hemoglobin Concent 32.5, Red Cell Distribution Width 18.1H, Platelet Count 285, Mean Platelet Volume 6.9, Neutrophils (%) (Auto) , Lymphocytes (%) (Auto) , Monocytes (%) (Auto) , Eosinophils (%) (Auto) , Basophils (%) (Auto) , Differential Total Cells Counted 100, Neutrophils % ( Manual) 92H, Lymphocytes % (Manual) 2L, Monocytes % (Manual) 5, Eosinophils % ( Manual) 1, Basophils % (Manual) 0, Band Neutrophils 0, Platelet Estimate Adequate, Platelet Morphology Normal, Polychromasia 1+, Anisocytosis 1+, Sodium Level 135L, Potassium Level 3.1L, Chloride Level 95L, Carbon Dioxide Level 27, Anion Gap 13, Blood Urea Nitrogen 47H, Creatinine 5.8H, Estimat Glomerular Filtration Rate 9.8, Glucose Level 160H, Calcium Level 8.7, Phosphorus Level 2.9 , Magnesium Level 2.2, Total Bilirubin 0.3, Aspartate Amino Transf (AST/SGOT) 23 , Alanine Aminotransferase (ALT/SGPT) 10L, Alkaline Phosphatase 88, C-Reactive Protein, Quantitative 23.3H, Total Protein 7.2, Albumin 1.6L, Globulin 5.6, Albumin/Globulin Ratio 0.3L 06/25/19 08:35: Arterial Blood pH 7.431, Arterial Blood Partial Pressure CO2 40.4, Arterial Blood Partial Pressure O2 91.1, Arterial Blood HCO3 26.3H, Arterial Blood Oxygen Saturation 97.2, Arterial Blood Base Excess 1.8, Kosta Test Positive Height (Feet): 6 Height (Inches): 1.00 Weight (Pounds): 245 General Appearance: no apparent distress EENT: other - Intubated on ventilator Cardiovascular: tachycardia Respiratory/Chest: decreased breath sounds Abdomen: distended Objective No change Mic Cole MD June 25, 2019 12:10
[2019-06-25] MEDS: Acetaminophen 650mg/20.3ml NG PRN (12:30)
--- NOTE | 2019-06-25 13:48 | Cardiac Electrophysiology PN ---
Assessment/Plan Assessment/Plan 1. Elevated troponin. Troponin on May 27 and May 30 were negative, on June 01, it was elevated at 0.074. Repeat 0.05. Likely due to renal failure. On Aspirin. EF 60%. 2. Septic shock. Off Levo and on iv ABx 3. ESRD, on hemodialysis per Dr. Cole. 4. Respiratory failure due to COVID-19 positive pneumonia. On the Vent with 30% Fio2. Fu by Dr. Mckeon. 5. MRSA carrier. 6. COPD. 7. Anemia. 8. Depression. 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 Off Levo In SR. Is Covid positive x 3. HD yesterday . In SR Objective Last 24 Hour Vital Signs Date Time Temp Pulse Resp B/P (MAP) Pulse Ox O2 Delivery O2 Flow Rate FiO2 06/25/19 13:00 99.3 06/25/19 13:00 119 14 104/79 (87) 98 06/25/19 12:30 126 25 139/74 (95) 97 06/25/19 12:02 139 38 30 06/25/19 12:00 Mechanical Ventilator 06/25/19 12:00 30 06/25/19 12:00 99.6 149 37 173/79 (110) 100 06/25/19 11:30 122 38 132/69 (90) 98 06/25/19 11:00 106 39 159/85 (109) 98 06/25/19 10:57 81 26 98 Mechanical Ventilator 30 96 28 30 06/25/19 10:30 95 24 144/79 (100) 99 06/25/19 10:00 107 28 169/87 (114) 98 06/25/19 09:02 98 06/25/19 09:00 98 28 116/63 (80) 98 06/25/19 08:00 Mechanical Ventilator 06/25/19 08:00 99.5 78 27 96/58 (71) 98 06/25/19 08:00 81 06/25/19 07:30 30 06/25/19 07:24 98 26 100 Mechanical Ventilator 30 98 30 30 30 06/25/19 07:00 24 92/55 Mechanical Ventilator 30 06/25/19 07:00 77 25 97/62 (74) 100 06/25/19 06:30 86 26 06/25/19 06:30 86 10 116/73 (87) 100 06/25/19 06:11 31 165/104 Mechanical Ventilator 30 06/25/19 06:00 99 21 113/60 (77) 97 06/25/19 06:00 21 113/60 Mechanical Ventilator 30 06/25/19 05:30 108 29 142/71 (94) 98 06/25/19 05:00 123 22 165/74 (104) 98 06/25/19 05:00 22 165/74 Mechanical Ventilator 30 06/25/19 04:30 91 27 117/61 (79) 98 06/25/19 04:00 91 27 119/60 (79) 98 06/25/19 04:00 91 06/25/19 04:00 Mechanical Ventilator 06/25/19 04:00 30 06/25/19 04:00 27 119/60 Mechanical Ventilator 30 06/25/19 03:30 92 26 148/71 (96) 98 06/25/19 03:21 78 26 100 Mechanical Ventilator 30 80 26 30 06/25/19 03:00 27 154/76 Mechanical Ventilator 30 06/25/19 03:00 98 8 157/57 (90) 99 06/25/19 02:30 79 23 109/56 (73) 98 06/25/19 02:00 82 21 143/64 (90) 100 06/25/19 02:00 26 126/63 Mechanical Ventilator 30 06/25/19 01:30 81 17 126/63 (84) 99 06/25/19 01:00 24 143/64 Mechanical Ventilator 30 06/25/19 01:00 81 24 117/66 (83) 99 06/25/19 00:30 79 26 121/62 (81) 99 06/25/19 00:00 Mechanical Ventilator 06/25/19 00:00 98.5 89 16 163/67 (99) 99 06/25/19 00:00 24 163/67 Mechanical Ventilator 30 06/24/19 23:30 101 20 160/75 (103) 99 06/24/19 23:13 91 31 100 Mechanical Ventilator 30 92 32 30 06/24/19 23:00 87 21 132/66 (88) 100 06/24/19 23:00 26 132/66 Mechanical Ventilator 30 06/24/19 22:30 89 24 143/67 (92) 100 06/24/19 22:00 85 20 147/102 (117) 100 06/24/19 22:00 22 147/102 Mechanical Ventilator 30 06/24/19 21:30 93 24 148/68 (94) 96 06/24/19 21:00 26 149/64 Mechanical Ventilator 30 06/24/19 21:00 79 24 149/64 (92) 100 06/24/19 20:30 75 28 101/56 (71) 99 06/24/19 20:00 Mechanical Ventilator 06/24/19 20:00 76 06/24/19 20:00 27 115/54 Mechanical Ventilator 30 06/24/19 20:00 30 06/24/19 20:00 98.7 81 28 115/54 (74) 99 06/24/19 19:30 85 30 89/52 (64) 100 06/24/19 19:20 97 31 100 Mechanical Ventilator 30 98 31 30 06/24/19 19:00 93 4 122/62 (82) 100 06/24/19 19:00 24 122/62 Mechanical Ventilator 30 06/24/19 19:00 122/62 06/24/19 18:30 86 26 149/70 (96) 100 06/24/19 18:00 98.6 81 21 112/58 (76) 100 06/24/19 18:00 28 122/58 Mechanical Ventilator 30 06/24/19 18:00 112/58 06/24/19 17:00 26 115/55 Mechanical Ventilator 30 06/24/19 17:00 115/55 06/24/19 17:00 87 23 107/57 (74) 99 06/24/19 16:30 111 28 135/73 (93) 100 06/24/19 16:00 103 06/24/19 16:00 101 18 86/53 (64) 100 06/24/19 16:00 Mechanical Ventilator 06/24/19 16:00 23 113/70 Mechanical Ventilator 30 06/24/19 16:00 113/70 06/24/19 16:00 30 06/24/19 15:10 137 43 97 Mechanical Ventilator 30 137 43 30 06/24/19 15:08 17 139/75 Mechanical Ventilator 70.0 30 06/24/19 15:00 139/69 06/24/19 15:00 120 26 139/69 (92) 97 06/24/19 14:30 121 7 105/56 (72) 98 06/24/19 14:00 96/70 06/24/19 14:00 28 139/69 Mechanical Ventilator 30 06/24/19 14:00 98 17 96/70 (79) 98 Intake and Output 06/24/19 06/25/19 19:00 07:00 Intake Total 690.65 ml 820 ml Output Total 3050 ml 10 ml Balance -2359.35 ml 810 ml Free Water 90 ml 160 ml IV Total 180.65 ml 240 ml Tube Feeding 420 ml 420 ml Output Urine Total 50 ml 10 ml Hemodialysis UF 3000 ml # Bowel Movements 3 1 Laboratory Tests Test 06/25/19 03:45 06/25/19 08:35 White Blood Count 11.2 K/UL (4.8-10.8) H Red Blood Count 2.70 M/UL (4.70-6.10) L Hemoglobin 8.1 G/DL (14.2-18.0) L Hematocrit 25.1 % (42.0-52.0) L Mean Corpuscular Volume 93 FL (80-99) Mean Corpuscular Hemoglobin 30.1 PG (27.0-31.0) Mean Corpuscular Hemoglobin Concent 32.5 G/DL (32.0-36.0) Red Cell Distribution Width 18.1 % (11.6-14.8) H Platelet Count 285 K/UL (150-450) Mean Platelet Volume 6.9 FL (6.5-10.1) Neutrophils (%) (Auto) % (45.0-75.0) Lymphocytes (%) (Auto) % (20.0-45.0) Monocytes (%) (Auto) % (1.0-10.0) Eosinophils (%) (Auto) % (0.0-3.0) Basophils (%) (Auto) % (0.0-2.0) Differential Total Cells Counted 100 Neutrophils % (Manual) 92 % (45-75) H Lymphocytes % (Manual) 2 % (20-45) L Monocytes % (Manual) 5 % (1-10) Eosinophils % (Manual) 1 % (0-3) Basophils % (Manual) 0 % (0-2) Band Neutrophils 0 % (0-8) Platelet Estimate Adequate Platelet Morphology Normal Polychromasia 1+ Anisocytosis 1+ Sodium Level 135 MMOL/L (136-145) L Potassium Level 3.1 MMOL/L (3.5-5.1) L Chloride Level 95 MMOL/L (98-107) L Carbon Dioxide Level 27 MMOL/L (21-32) Anion Gap 13 mmol/L (5-15) Blood Urea Nitrogen 47 mg/dL (7-18) H Creatinine 5.8 MG/DL (0.55-1.30) H Estimat Glomerular Filtration Rate 9.8 mL/min (>60) Glucose Level 160 MG/DL (74-106) H Calcium Level 8.7 MG/DL (8.5-10.1) Phosphorus Level 2.9 MG/DL (2.5-4.9) Magnesium Level 2.2 MG/DL (1.8-2.4) Total Bilirubin 0.3 MG/DL (0.2-1.0) Aspartate Amino Transf (AST/SGOT) 23 U/L (15-37) Alanine Aminotransferase (ALT/SGPT) 10 U/L (12-78) L Alkaline Phosphatase 88 U/L (46-116) C-Reactive Protein, Quantitative 23.3 mg/dL (0.00-0.90) H Total Protein 7.2 G/DL (6.4-8.2) Albumin 1.6 G/DL (3.4-5.0) L Globulin 5.6 g/dL Albumin/Globulin Ratio 0.3 (1.0-2.7) L Arterial Blood pH 7.431 (7.350-7.450) Arterial Blood Partial Pressure CO2 40.4 mmHg (35.0-45.0) Arterial Blood Partial Pressure O2 91.1 mmHg (75.0-100.0) Arterial Blood HCO3 26.3 mmol/L (22.0-26.0) H Arterial Blood Oxygen Saturation 97.2 % (95-100) Arterial Blood Base Excess 1.8 (-2-2) Kosta Test Positive Objective HEAD AND NECK: No JVD.Orally intubated LUNGS: Decreased breath sounds. CARDIOVASCULAR: Regular S1 and S2. Tachycardic. ABDOMEN: Soft. EXTREMITIES: No pitting edema. New Left FV Gio Engle MD June 25, 2019 13:48
--- NOTE | 2019-06-25 14:02 | Surgery Progress Note ---
Surgery Progress Note Subjective Procedure Performed Right femoral temporary hemodialysis catheter insertion Additional Comments labs noted ill appearing vent settings now minimal Objective Last 24 Hour Vital Signs Date Time Temp Pulse Resp B/P (MAP) Pulse Ox O2 Delivery O2 Flow Rate FiO2 06/25/19 13:00 99.3 06/25/19 13:00 119 14 104/79 (87) 98 06/25/19 12:30 126 25 139/74 (95) 97 06/25/19 12:02 139 38 30 06/25/19 12:00 Mechanical Ventilator 06/25/19 12:00 30 06/25/19 12:00 99.6 149 37 173/79 (110) 100 06/25/19 11:30 122 38 132/69 (90) 98 06/25/19 11:00 106 39 159/85 (109) 98 06/25/19 10:57 81 26 98 Mechanical Ventilator 30 96 28 30 06/25/19 10:30 95 24 144/79 (100) 99 06/25/19 10:00 107 28 169/87 (114) 98 06/25/19 09:02 98 06/25/19 09:00 98 28 116/63 (80) 98 06/25/19 08:00 Mechanical Ventilator 06/25/19 08:00 99.5 78 27 96/58 (71) 98 06/25/19 08:00 81 06/25/19 07:30 30 06/25/19 07:24 98 26 100 Mechanical Ventilator 30 98 30 30 30 06/25/19 07:00 24 92/55 Mechanical Ventilator 30 06/25/19 07:00 77 25 97/62 (74) 100 06/25/19 06:30 86 26 06/25/19 06:30 86 10 116/73 (87) 100 06/25/19 06:11 31 165/104 Mechanical Ventilator 30 06/25/19 06:00 99 21 113/60 (77) 97 06/25/19 06:00 21 113/60 Mechanical Ventilator 30 06/25/19 05:30 108 29 142/71 (94) 98 06/25/19 05:00 123 22 165/74 (104) 98 06/25/19 05:00 22 165/74 Mechanical Ventilator 30 06/25/19 04:30 91 27 117/61 (79) 98 06/25/19 04:00 91 27 119/60 (79) 98 06/25/19 04:00 91 06/25/19 04:00 Mechanical Ventilator 06/25/19 04:00 30 06/25/19 04:00 27 119/60 Mechanical Ventilator 30 06/25/19 03:30 92 26 148/71 (96) 98 06/25/19 03:21 78 26 100 Mechanical Ventilator 30 80 26 30 06/25/19 03:00 27 154/76 Mechanical Ventilator 30 06/25/19 03:00 98 8 157/57 (90) 99 06/25/19 02:30 79 23 109/56 (73) 98 06/25/19 02:00 82 21 143/64 (90) 100 06/25/19 02:00 26 126/63 Mechanical Ventilator 30 06/25/19 01:30 81 17 126/63 (84) 99 06/25/19 01:00 24 143/64 Mechanical Ventilator 30 06/25/19 01:00 81 24 117/66 (83) 99 06/25/19 00:30 79 26 121/62 (81) 99 06/25/19 00:00 Mechanical Ventilator 06/25/19 00:00 98.5 89 16 163/67 (99) 99 06/25/19 00:00 24 163/67 Mechanical Ventilator 30 06/24/19 23:30 101 20 160/75 (103) 99 06/24/19 23:13 91 31 100 Mechanical Ventilator 30 92 32 30 06/24/19 23:00 87 21 132/66 (88) 100 06/24/19 23:00 26 132/66 Mechanical Ventilator 30 06/24/19 22:30 89 24 143/67 (92) 100 06/24/19 22:00 85 20 147/102 (117) 100 06/24/19 22:00 22 147/102 Mechanical Ventilator 30 06/24/19 21:30 93 24 148/68 (94) 96 06/24/19 21:00 26 149/64 Mechanical Ventilator 30 06/24/19 21:00 79 24 149/64 (92) 100 06/24/19 20:30 75 28 101/56 (71) 99 06/24/19 20:00 Mechanical Ventilator 06/24/19 20:00 76 06/24/19 20:00 27 115/54 Mechanical Ventilator 30 06/24/19 20:00 30 06/24/19 20:00 98.7 81 28 115/54 (74) 99 06/24/19 19:30 85 30 89/52 (64) 100 06/24/19 19:20 97 31 100 Mechanical Ventilator 30 98 31 30 06/24/19 19:00 93 4 122/62 (82) 100 06/24/19 19:00 24 122/62 Mechanical Ventilator 30 06/24/19 19:00 122/62 06/24/19 18:30 86 26 149/70 (96) 100 06/24/19 18:00 98.6 81 21 112/58 (76) 100 06/24/19 18:00 28 122/58 Mechanical Ventilator 30 06/24/19 18:00 112/58 06/24/19 17:00 26 115/55 Mechanical Ventilator 30 06/24/19 17:00 115/55 06/24/19 17:00 87 23 107/57 (74) 99 06/24/19 16:30 111 28 135/73 (93) 100 06/24/19 16:00 103 06/24/19 16:00 101 18 86/53 (64) 100 06/24/19 16:00 Mechanical Ventilator 06/24/19 16:00 23 113/70 Mechanical Ventilator 30 06/24/19 16:00 113/70 06/24/19 16:00 30 06/24/19 15:10 137 43 97 Mechanical Ventilator 30 137 43 30 06/24/19 15:08 17 139/75 Mechanical Ventilator 70.0 30 06/24/19 15:00 139/69 06/24/19 15:00 120 26 139/69 (92) 97 06/24/19 14:30 121 7 105/56 (72) 98 I&O Intake and Output 06/24/19 06/25/19 19:00 07:00 Intake Total 690.65 ml 820 ml Output Total 3050 ml 10 ml Balance -2359.35 ml 810 ml Free Water 90 ml 160 ml IV Total 180.65 ml 240 ml Tube Feeding 420 ml 420 ml Output Urine Total 50 ml 10 ml Hemodialysis UF 3000 ml # Bowel Movements 3 1 Dressing: other Wound: other Drains: other Cardiovascular: RSR Respiratory: decreased breath sounds Abdomen: soft, present bowel sounds, non-distended Extremities: edema, no cyanosis Laboratory Tests Test 06/25/19 03:45 06/25/19 08:35 White Blood Count 11.2 K/UL (4.8-10.8) H Red Blood Count 2.70 M/UL (4.70-6.10) L Hemoglobin 8.1 G/DL (14.2-18.0) L Hematocrit 25.1 % (42.0-52.0) L Mean Corpuscular Volume 93 FL (80-99) Mean Corpuscular Hemoglobin 30.1 PG (27.0-31.0) Mean Corpuscular Hemoglobin Concent 32.5 G/DL (32.0-36.0) Red Cell Distribution Width 18.1 % (11.6-14.8) H Platelet Count 285 K/UL (150-450) Mean Platelet Volume 6.9 FL (6.5-10.1) Neutrophils (%) (Auto) % (45.0-75.0) Lymphocytes (%) (Auto) % (20.0-45.0) Monocytes (%) (Auto) % (1.0-10.0) Eosinophils (%) (Auto) % (0.0-3.0) Basophils (%) (Auto) % (0.0-2.0) Differential Total Cells Counted 100 Neutrophils % (Manual) 92 % (45-75) H Lymphocytes % (Manual) 2 % (20-45) L Monocytes % (Manual) 5 % (1-10) Eosinophils % (Manual) 1 % (0-3) Basophils % (Manual) 0 % (0-2) Band Neutrophils 0 % (0-8) Platelet Estimate Adequate Platelet Morphology Normal Polychromasia 1+ Anisocytosis 1+ Sodium Level 135 MMOL/L (136-145) L Potassium Level 3.1 MMOL/L (3.5-5.1) L Chloride Level 95 MMOL/L (98-107) L Carbon Dioxide Level 27 MMOL/L (21-32) Anion Gap 13 mmol/L (5-15) Blood Urea Nitrogen 47 mg/dL (7-18) H Creatinine 5.8 MG/DL (0.55-1.30) H Estimat Glomerular Filtration Rate 9.8 mL/min (>60) Glucose Level 160 MG/DL (74-106) H Calcium Level 8.7 MG/DL (8.5-10.1) Phosphorus Level 2.9 MG/DL (2.5-4.9) Magnesium Level 2.2 MG/DL (1.8-2.4) Total Bilirubin 0.3 MG/DL (0.2-1.0) Aspartate Amino Transf (AST/SGOT) 23 U/L (15-37) Alanine Aminotransferase (ALT/SGPT) 10 U/L (12-78) L Alkaline Phosphatase 88 U/L (46-116) C-Reactive Protein, Quantitative 23.3 mg/dL (0.00-0.90) H Total Protein 7.2 G/DL (6.4-8.2) Albumin 1.6 G/DL (3.4-5.0) L Globulin 5.6 g/dL Albumin/Globulin Ratio 0.3 (1.0-2.7) L Arterial Blood pH 7.431 (7.350-7.450) Arterial Blood Partial Pressure CO2 40.4 mmHg (35.0-45.0) Arterial Blood Partial Pressure O2 91.1 mmHg (75.0-100.0) Arterial Blood HCO3 26.3 mmol/L (22.0-26.0) H Arterial Blood Oxygen Saturation 97.2 % (95-100) Arterial Blood Base Excess 1.8 (-2-2) Kosta Test Positive Plan Problems: (1) Suspected COVID-19 virus infection (2) HTN (hypertension) (3) CASSANDRA (acute kidney injury) Assessment & Plan: Needs urgent HD needs access patient okay and consented see note will follow with recs new line placed discussed with team and nephrology HD line functional when checked has TPA now please use appropriately Cathflo used again this flow during dialysis on 430 was low. Will monitor may need line change 5/4 plan for HD as per renal may need to take fluid off with HD edema anasarca dressings saturated and changed will monitor (4) Anemia in chronic kidney disease (CKD) (5) Anemia (6) Renal failure (7) Suspected COVID-19 virus infection Assessment & Plan: Pt deconditioned and despite all skin preventions Pt noted to have developed several pressure injuries. . Stable dry eschar noted to clefts of R and L ears. No erythema noted . DTPI noted to L trochanter. Base of injury is maroon in colour with marginal erythema along borders. Partially opened DTPI Sacrum, R and L Buttocks. Base of wound is maroon with two small open wounds L sacrum and L buttocks. Pt has an APM/MOMO Mattress overlay and is being positioned with pillows as per tolerance and within protocols. Tx.Plan: Apply Cavilon Skin Barrier to both ears Daily and prn. Apply Moisture Barrier Paste to Sacrum,R and L Buttocks. Cover with Optifoam drsgs. Change every 3 days and PRN. Apply Cavilon Skin Barrier to R and L trochanter. Cover each site with Optifoam drsgs.Change every 7 days and PRN. Apply Cavilon Skin Barrier to both heels. Cover each heel with Optifoam drsg. Change every 7 days and prn. Off-load heels with pillow. Reposition at least every 2hours or as tolerated. APM/MOMO Mattress overlay. (8) COVID-19 Assessment & Plan: COVID + c diff negative febrile leukocytosis renal insufficiency see above cont resp care Rx as per ID worsening on vent support now cxr noted on pressors prognosis guarded repeat covid ++ weaning vent and pressors off slowly showing improvement Yaniv Mast June 25, 2019 14:02
[2019-06-25] MEDS: D5W IV SCH ×3 (14:38)
[2019-06-25] MEDS: NOREPINEPHRINE BITARTRATE IV SCH ×3 (14:38)
--- NOTE | 2019-06-25 15:56 | Hematology/Onc Progress Note ---
Assessment/Plan Assessment/Plan Assessment and Recs: # Anemia of chronic disease, likely related ot underlying kidney disease has COIVD19++ --> hgb trend 9-->8-->7.3-->7.9-->6.8->9.5-->10->8.3-->7.7-->7.1-->8.9->8.8->7.7 -->8.1 --> transfuse as needed, hgb goal >7 --> no evidence of hemolysis --> peripheral smear has been reviewed --> epogen started three x a week ==>> transfuse w 2 units 06/08, 06/15, # Leukocytosis likely related to suspected COVID-19 virus infection --> completed plaquenil --> trend smear as needed --> initially 4-->11-->14.5-->21-->26-->21->24--.28-->23-->19-->16.2-->21--> 11.2 --> pulm is aware --> on abx cefepime/vanc->zosyn/vanc-->off --> pressors as needed # Thrombocytopenia/Lymphopenia --> likely related to covid19 --> plt 129k-->186k-->251--285 # Respiratory failure with covid19+ --> s/p vent # Possible Pneumonia --> abx given --> on zosyn and vanc # Cardiomegaly # Transaminitis with Elevated AST # COPD # Chronic Kidney Disease --> per renal hd # Hypertension # Dvt ppx lovenox Appreciate consultation and dw Rn Subjective Allergies: Coded Allergies: No Known Allergies (Unverified , 05/28/19) Subjective 06/01 nv, extremely agitated, not allowing labs draws, no night sweats, cbc ordered 06/02 confused, restraints, on abx and plaquenil, hgb 7.9, nrb 15 L 06/03 is with nonrebreather, but not compliant, remains confused 06/05 no bleeding, labs noted, no major bleeding, otherwise comfortable 06/06 labs reviewed, no bleeding, meds noted, no night sweats, on levo and nonrebreather 06/07 labs noted, no bleeding, meds reviewed, no bleeding, wbc higher 06/08 to get 2 units prbc, no night sweats, meds reviewed 06/09 is on cefepime and vanc, labs noted, ernesto Rn, no bleeding 06/10 no major changes, labs reviewed, wbc 28k, on abx, cefepime 06/12 remains in icu, labs noted, no night sweats or bleeding 06/13 sluggish pupils, remains agitated, per psych, no bleding, on vent, wbc sitll high 06/14 still confused, remains on vent, with ng, running nepro, on pressors 06/15 icu, febrile, non verbal, hgb 7.1, blood pending, completed plaq 06/16 remains in the icu, nonverbal, plan for hd tomorrow, ernesto rn 06/17 in icu, on pressor, nonverbal, on abx, no bleeding 06/19 no bleeding, nonverbal in icu, hgb is 7.7 06/20 on zosyn, tube feeds, vent, labs noted, in icu, nv 06/21 gettng hd as per renal, in icu, nv, no bleeding, tfs 06/22 icu, cxr with slight improvement, cooling blanket, weaning today 06/23 wewaning, in icu, on vent, abx, and pressors as needed, labs noted 06/24 failed weaning, off abx, completed plaquenil, hgb 8.1 Objective Objective Current Medications Medications (Trade) Dose Ordered Sig/Anthony Route PRN Reason Start Time Stop Time Status Last Admin Dose Admin Acetaminophen (Tylenol) 650 mg Q4H PRN NG Temp >100.5 06/13/19 11:00 07/13/19 10:59 06/25/19 12:30 Albuterol Sulfate (Proventil MDI) 2 puff Q4HRT INH 06/06/19 23:00 08/30/19 18:59 06/25/19 15:24 Chlorhexidine Gluconate (Michelle-Hex 2%) 1 applic DAILY@1999 TOPIC 06/07/19 20:00 09/05/19 19:59 06/24/19 20:55 Dextrose (Dextrose 50%) 25 ml Q30M PRN IV Hypoglycemia 06/20/19 19:30 09/18/19 19:29 Dextrose (Dextrose 50%) 50 ml Q30M PRN IV Hypoglycemia 06/20/19 19:30 09/18/19 19:29 Docusate Sodium (Colace) 100 mg THREE TIMES A DAY NG 06/07/19 13:00 07/07/19 12:59 06/25/19 12:30 Dopamine HCl/ Dextrose 250 ml @ 0 mls/hr Q24H PRN IV For hypotension 06/13/19 08:15 09/11/19 08:14 Enoxaparin Sodium (Lovenox) 30 mg DAILY SUBQ 06/07/19 09:00 08/27/19 08:59 06/25/19 08:43 Epoetin Aftab (Epoetin Aftab(ESRD on dialysis)) 10,000 unit SUBQ 06/07/19 21:00 08/31/19 20:59 06/23/19 21:09 Fentanyl Citrate 250 ml @ 0 mls/hr Q24H IV 06/24/19 06:00 09/22/19 05:59 06/25/19 06:11 Hydralazine HCl (Apresoline) 10 mg Q4H PRN IV Blood pressure over 160 systol 06/07/19 10:15 09/05/19 10:14 Insulin Aspart (NovoLOG) EVERY 6 HOURS SUBQ 06/21/19 00:00 09/19/19 00:00 06/25/19 12:32 Metoclopramide HCl (Reglan) 5 mg Q8H PRN IVP Nausea & Vomiting 06/18/19 12:00 07/18/19 11:59 06/19/19 00:50 Midodrine (Pro-Amatine) 10 mg THREE TIMES A DAY NG 06/09/19 13:00 09/07/19 12:59 06/25/19 12:30 Norepinephrine Bitartrate 8 mg/ Dextrose 283 ml @ 0 mls/hr Q24H IV 06/23/19 23:00 07/23/19 22:59 06/25/19 14:38 Pantoprazole (Protonix) 40 mg DAILY IVP 06/19/19 09:00 07/19/19 08:59 06/25/19 08:42 Sevelamer Carbonate (Renvela) 1,600 mg Q8HR NG 06/25/19 22:00 09/05/19 12:59 Last 24 Hour Vital Signs Date Time Temp Pulse Resp B/P (MAP) Pulse Ox O2 Delivery O2 Flow Rate FiO2 06/25/19 15:30 84 26 99 Mechanical Ventilator 30 88 28 30 06/25/19 15:00 75 20 137/66 (89) 100 06/25/19 14:38 82/49 06/25/19 14:30 85 20 82/49 (60) 98 06/25/19 14:00 119 16 117/58 (77) 99 06/25/19 13:30 109 27 98/50 (66) 98 06/25/19 13:00 99.3 06/25/19 13:00 119 14 104/79 (87) 98 06/25/19 12:30 126 25 139/74 (95) 97 06/25/19 12:02 139 38 30 06/25/19 12:00 Mechanical Ventilator 06/25/19 12:00 30 06/25/19 12:00 99.6 149 37 173/79 (110) 100 06/25/19 11:30 122 38 132/69 (90) 98 06/25/19 11:00 106 39 159/85 (109) 98 06/25/19 10:57 81 26 98 Mechanical Ventilator 30 96 28 30 06/25/19 10:30 95 24 144/79 (100) 99 06/25/19 10:00 107 28 169/87 (114) 98 06/25/19 09:02 98 06/25/19 09:00 98 28 116/63 (80) 98 06/25/19 08:00 Mechanical Ventilator 06/25/19 08:00 99.5 78 27 96/58 (71) 98 06/25/19 08:00 81 06/25/19 07:30 30 06/25/19 07:24 98 26 100 Mechanical Ventilator 30 98 30 30 30 06/25/19 07:00 24 92/55 Mechanical Ventilator 30 06/25/19 07:00 77 25 97/62 (74) 100 06/25/19 06:30 86 26 06/25/19 06:30 86 10 116/73 (87) 100 06/25/19 06:11 31 165/104 Mechanical Ventilator 30 06/25/19 06:00 99 21 113/60 (77) 97 06/25/19 06:00 21 113/60 Mechanical Ventilator 30 06/25/19 05:30 108 29 142/71 (94) 98 06/25/19 05:00 123 22 165/74 (104) 98 06/25/19 05:00 22 165/74 Mechanical Ventilator 30 06/25/19 04:30 91 27 117/61 (79) 98 06/25/19 04:00 91 27 119/60 (79) 98 06/25/19 04:00 91 06/25/19 04:00 Mechanical Ventilator 06/25/19 04:00 30 06/25/19 04:00 27 119/60 Mechanical Ventilator 30 06/25/19 03:30 92 26 148/71 (96) 98 06/25/19 03:21 78 26 100 Mechanical Ventilator 30 80 26 30 06/25/19 03:00 27 154/76 Mechanical Ventilator 30 06/25/19 03:00 98 8 157/57 (90) 99 06/25/19 02:30 79 23 109/56 (73) 98 06/25/19 02:00 82 21 143/64 (90) 100 06/25/19 02:00 26 126/63 Mechanical Ventilator 30 06/25/19 01:30 81 17 126/63 (84) 99 06/25/19 01:00 24 143/64 Mechanical Ventilator 30 06/25/19 01:00 81 24 117/66 (83) 99 06/25/19 00:30 79 26 121/62 (81) 99 06/25/19 00:00 Mechanical Ventilator 06/25/19 00:00 98.5 89 16 163/67 (99) 99 06/25/19 00:00 24 163/67 Mechanical Ventilator 30 06/24/19 23:30 101 20 160/75 (103) 99 06/24/19 23:13 91 31 100 Mechanical Ventilator 30 92 32 30 06/24/19 23:00 87 21 132/66 (88) 100 06/24/19 23:00 26 132/66 Mechanical Ventilator 30 06/24/19 22:30 89 24 143/67 (92) 100 06/24/19 22:00 85 20 147/102 (117) 100 06/24/19 22:00 22 147/102 Mechanical Ventilator 30 06/24/19 21:30 93 24 148/68 (94) 96 06/24/19 21:00 26 149/64 Mechanical Ventilator 30 06/24/19 21:00 79 24 149/64 (92) 100 06/24/19 20:30 75 28 101/56 (71) 99 06/24/19 20:00 Mechanical Ventilator 06/24/19 20:00 76 06/24/19 20:00 27 115/54 Mechanical Ventilator 30 06/24/19 20:00 30 06/24/19 20:00 98.7 81 28 115/54 (74) 99 06/24/19 19:30 85 30 89/52 (64) 100 06/24/19 19:20 97 31 100 Mechanical Ventilator 30 98 31 30 06/24/19 19:00 93 4 122/62 (82) 100 06/24/19 19:00 24 122/62 Mechanical Ventilator 30 06/24/19 19:00 122/62 06/24/19 18:30 86 26 149/70 (96) 100 06/24/19 18:00 98.6 81 21 112/58 (76) 100 06/24/19 18:00 28 122/58 Mechanical Ventilator 30 06/24/19 18:00 112/58 06/24/19 17:00 26 115/55 Mechanical Ventilator 30 06/24/19 17:00 115/55 06/24/19 17:00 87 23 107/57 (74) 99 06/24/19 16:30 111 28 135/73 (93) 100 06/24/19 16:00 103 06/24/19 16:00 101 18 86/53 (64) 100 06/24/19 16:00 Mechanical Ventilator 06/24/19 16:00 23 113/70 Mechanical Ventilator 30 06/24/19 16:00 113/70 06/24/19 16:00 30 06/24/19 15:10 137 43 97 Mechanical Ventilator 30 137 43 30 06/24/19 15:08 17 139/75 Mechanical Ventilator 70.0 30 06/24/19 15:00 139/69 06/24/19 15:00 120 26 139/69 (92) 97 06/24/19 14:30 121 7 105/56 (72) 98 06/24/19 14:00 96/70 06/24/19 14:00 28 139/69 Mechanical Ventilator 30 06/24/19 14:00 98 17 96/70 (79) 98 06/24/19 13:30 96 10 113/63 (80) 99 06/24/19 13:00 136/68 06/24/19 13:00 20 105/56 Mechanical Ventilator 30 06/24/19 13:00 98.0 99 11 136/68 (90) 99 06/24/19 12:00 91 17 139/75 (96) 100 06/24/19 12:00 30 06/24/19 12:00 139/75 06/24/19 12:00 26 139/75 Mechanical Ventilator 30 06/24/19 12:00 94 06/24/19 12:00 Mechanical Ventilator 06/24/19 11:30 84 22 127/64 (85) 100 06/24/19 11:10 83 26 100 Mechanical Ventilator 30 83 26 30 06/24/19 11:00 117/59 06/24/19 11:00 22 117/59 Mechanical Ventilator 30 06/24/19 11:00 84 24 117/59 (78) 100 06/24/19 10:30 95 15 100/71 (81) 99 06/24/19 10:00 70/40 06/24/19 10:00 22 77/51 Mechanical Ventilator 30 06/24/19 10:00 84 23 77/51 (60) 99 06/24/19 09:30 91 24 73/47 (56) 97 06/24/19 09:00 24 77/45 30 06/24/19 09:00 101 21 77/45 (56) 97 06/24/19 08:30 136 20 122/61 (81) 97 06/24/19 08:00 Mechanical Ventilator 06/24/19 08:00 85 06/24/19 08:00 97.9 155 28 190/97 (128) 89 06/24/19 08:00 30 122/61 Mechanical Ventilator 30 06/24/19 08:00 30 06/24/19 07:30 102 24 149/114 (126) 96 06/24/19 07:10 120 30 97 Mechanical Ventilator 30 120 30 30 06/24/19 07:00 96/57 06/24/19 07:00 96 26 96/57 (70) 98 06/24/19 06:28 94 17 06/24/19 06:00 20 119/71 Mechanical Ventilator 30 06/24/19 06:00 17 119/71 Mechanical Ventilator 30 06/24/19 06:00 109 21 119/71 (87) 98 06/24/19 05:30 106 25 117/63 (81) 97 06/24/19 05:00 30 150/86 Mechanical Ventilator 30 06/24/19 05:00 120 25 150/86 (107) 97 06/24/19 04:30 127 29 181/94 (123) 95 06/24/19 04:00 Mechanical Ventilator 06/24/19 04:00 85 06/24/19 04:00 30 181/94 Mechanical Ventilator 30 06/24/19 04:00 30 06/24/19 04:00 97.8 84 26 136/71 (92) 100 06/24/19 03:37 99 26 30 06/24/19 03:30 80 26 137/66 (89) 100 06/24/19 03:00 20 137/66 Mechanical Ventilator 30 06/24/19 03:00 85 26 136/68 (90) 99 06/24/19 02:30 85 23 127/64 (85) 99 06/24/19 02:00 100 23 159/68 (98) 97 06/24/19 02:00 16 159/68 Mechanical Ventilator 30 06/24/19 01:30 87 17 116/61 (79) 99 06/24/19 01:00 95 16 113/57 (75) 99 06/24/19 01:00 16 113/57 Mechanical Ventilator 30 06/24/19 00:30 101 12 169/94 (119) 98 06/24/19 00:03 Mechanical Ventilator 06/24/19 00:00 102 06/24/19 00:00 97.8 89 16 113/72 (86) 98 06/24/19 00:00 16 113/72 Mechanical Ventilator 30 06/23/19 23:30 85 18 136/67 (90) 98 06/23/19 23:20 82 26 30 06/23/19 23:00 136/67 06/23/19 23:00 16 103/50 Mechanical Ventilator 30 06/23/19 23:00 76 16 103/50 (67) 100 06/23/19 22:30 76 16 112/56 (74) 100 06/23/19 22:00 78 16 128/60 (82) 98 06/23/19 22:00 17 128/60 Mechanical Ventilator 30 06/23/19 21:30 83 11 134/61 (85) 96 06/23/19 21:00 84 17 150/63 (92) 100 06/23/19 21:00 11 134/61 Mechanical Ventilator 30 06/23/19 21:00 134/61 06/23/19 20:30 79 15 147/66 (93) 100 06/23/19 20:00 84 06/23/19 20:00 15 126/62 Mechanical Ventilator 30 06/23/19 20:00 126/62 06/23/19 20:00 76 10 147/85 (105) 100 06/23/19 20:00 30 06/23/19 20:00 Mechanical Ventilator 06/23/19 19:30 98.7 76 19 118/58 (78) 100 06/23/19 19:12 86 26 30 06/23/19 19:00 20 104/58 Mechanical Ventilator 30 06/23/19 19:00 104/58 06/23/19 19:00 81 12 110/53 (72) 98 06/23/19 18:00 24 143/63 Mechanical Ventilator 30 06/23/19 18:00 143/63 06/23/19 18:00 80 24 104/58 (73) 99 06/23/19 17:15 90 25 143/63 (89) 96 06/23/19 17:00 98.9 88 26 124/55 (78) 95 06/23/19 17:00 24 115/55 Mechanical Ventilator 30 06/23/19 17:00 115/55 06/23/19 16:00 Mechanical Ventilator 06/23/19 16:00 30 06/23/19 16:00 20 123/54 Mechanical Ventilator 30 06/23/19 16:00 123/54 06/23/19 16:00 75 19 121/58 (79) 98 06/23/19 16:00 89 Intake and Output 06/24/19 06/25/19 19:00 07:00 Intake Total 690.65 ml 820 ml Output Total 3050 ml 10 ml Balance -2359.35 ml 810 ml Free Water 90 ml 160 ml IV Total 180.65 ml 240 ml Tube Feeding 420 ml 420 ml Output Urine Total 50 ml 10 ml Hemodialysis UF 3000 ml # Bowel Movements 3 1 Labs Test 06/23/19 04:13 06/23/19 08:27 06/24/19 05:23 06/25/19 03:45 White Blood Count 11.2 K/UL (4.8-10.8) 11.8 K/UL (4.8-10.8) 11.2 K/UL (4.8-10.8) Red Blood Count 2.67 M/UL (4.70-6.10) 2.81 M/UL (4.70-6.10) 2.70 M/UL (4.70-6.10) Hemoglobin 8.1 G/DL (14.2-18.0) 8.3 G/DL (14.2-18.0) 8.1 G/DL (14.2-18.0) Hematocrit 25.0 % (42.0-52.0) 25.9 % (42.0-52.0) 25.1 % (42.0-52.0) Mean Corpuscular Volume 94 FL (80-99) 92 FL (80-99) 93 FL (80-99) Mean Corpuscular Hemoglobin 30.2 PG (27.0-31.0) 29.5 PG (27.0-31.0) 30.1 PG (27.0-31.0) Mean Corpuscular Hemoglobin Concent 32.3 G/DL (32.0-36.0) 31.9 G/DL (32.0-36.0) 32.5 G/DL (32.0-36.0) Red Cell Distribution Width 18.6 % (11.6-14.8) 17.7 % (11.6-14.8) 18.1 % (11.6-14.8) Platelet Count 251 K/UL (150-450) 255 K/UL (150-450) 285 K/UL (150-450) Mean Platelet Volume 7.8 FL (6.5-10.1) 7.3 FL (6.5-10.1) 6.9 FL (6.5-10.1) Neutrophils (%) (Auto) % (45.0-75.0) % (45.0-75.0) % (45.0-75.0) Lymphocytes (%) (Auto) % (20.0-45.0) % (20.0-45.0) % (20.0-45.0) Monocytes (%) (Auto) % (1.0-10.0) % (1.0-10.0) % (1.0-10.0) Eosinophils (%) (Auto) % (0.0-3.0) % (0.0-3.0) % (0.0-3.0) Basophils (%) (Auto) % (0.0-2.0) % (0.0-2.0) % (0.0-2.0) Differential Total Cells Counted 100 100 100 Neutrophils % (Manual) 91 % (45-75) 90 % (45-75) 92 % (45-75) Lymphocytes % (Manual) 3 % (20-45) 6 % (20-45) 2 % (20-45) Monocytes % (Manual) 4 % (1-10) 4 % (1-10) 5 % (1-10) Eosinophils % (Manual) 0 % (0-3) 0 % (0-3) 1 % (0-3) Basophils % (Manual) 1 % (0-2) 0 % (0-2) 0 % (0-2) Metamyelocytes % 1 % (0-0) Band Neutrophils 0 % (0-8) 0 % (0-8) 0 % (0-8) Platelet Estimate Adequate Adequate Adequate Platelet Morphology Normal Normal Normal Hypochromasia 2+ 2+ Anisocytosis 2+ 2+ 1+ Sodium Level 133 MMOL/L (136-145) 130 MMOL/L (136-145) 135 MMOL/L (136-145) Potassium Level 3.5 MMOL/L (3.5-5.1) 3.3 MMOL/L (3.5-5.1) 3.1 MMOL/L (3.5-5.1) Chloride Level 92 MMOL/L (98-107) 91 MMOL/L (98-107) 95 MMOL/L (98-107) Carbon Dioxide Level 27 MMOL/L (21-32) 24 MMOL/L (21-32) 27 MMOL/L (21-32) Anion Gap 14 mmol/L (5-15) 15 mmol/L (5-15) 13 mmol/L (5-15) Blood Urea Nitrogen 50 mg/dL (7-18) 61 mg/dL (7-18) 47 mg/dL (7-18) Creatinine 6.4 MG/DL (0.55-1.30) 7.4 MG/DL (0.55-1.30) 5.8 MG/DL (0.55-1.30) Estimat Glomerular Filtration Rate 8.8 mL/min (>60) 7.4 mL/min (>60) 9.8 mL/min (>60) Glucose Level 210 MG/DL (74-106) 212 MG/DL (74-106) 160 MG/DL (74-106) Uric Acid 3.9 MG/DL (2.6-7.2) Calcium Level 8.9 MG/DL (8.5-10.1) 8.5 MG/DL (8.5-10.1) 8.7 MG/DL (8.5-10.1) Phosphorus Level 5.5 MG/DL (2.5-4.9) 4.5 MG/DL (2.5-4.9) 2.9 MG/DL (2.5-4.9) Magnesium Level 2.3 MG/DL (1.8-2.4) 2.4 MG/DL (1.8-2.4) 2.2 MG/DL (1.8-2.4) Total Bilirubin 0.4 MG/DL (0.2-1.0) 0.4 MG/DL (0.2-1.0) 0.3 MG/DL (0.2-1.0) Aspartate Amino Transf (AST/SGOT) 20 U/L (15-37) 20 U/L (15-37) 23 U/L (15-37) Alanine Aminotransferase (ALT/SGPT) 10 U/L (12-78) 10 U/L (12-78) 10 U/L (12-78) Alkaline Phosphatase 84 U/L (46-116) 86 U/L (46-116) 88 U/L (46-116) Total Protein 7.7 G/DL (6.4-8.2) 7.2 G/DL (6.4-8.2) 7.2 G/DL (6.4-8.2) Albumin 1.8 G/DL (3.4-5.0) 1.6 G/DL (3.4-5.0) 1.6 G/DL (3.4-5.0) Globulin 5.9 g/dL 5.6 g/dL 5.6 g/dL Albumin/Globulin Ratio 0.3 (1.0-2.7) 0.3 (1.0-2.7) 0.3 (1.0-2.7) Arterial Blood pH 7.383 (7.350-7.450) Arterial Blood Partial Pressure CO2 40.4 mmHg (35.0-45.0) Arterial Blood Partial Pressure O2 112.3 mmHg (75.0-100.0) Arterial Blood HCO3 23.5 mmol/L (22.0-26.0) Arterial Blood Oxygen Saturation 97.7 % (95-100) Arterial Blood Base Excess -1.4 (-2-2) Kosta Test Positive C-Reactive Protein, Quantitative 17.9 mg/dL (0.00-0.90) 23.3 mg/dL (0.00-0.90) Polychromasia 1+ Test 06/25/19 08:35 Arterial Blood pH 7.431 (7.350-7.450) Arterial Blood Partial Pressure CO2 40.4 mmHg (35.0-45.0) Arterial Blood Partial Pressure O2 91.1 mmHg (75.0-100.0) Arterial Blood HCO3 26.3 mmol/L (22.0-26.0) Arterial Blood Oxygen Saturation 97.2 % (95-100) Arterial Blood Base Excess 1.8 (-2-2) Kosta Test Positive Height (Feet): 6 Height (Inches): 1.00 Weight (Pounds): 245 Objective Sp02 EP Interpretation: reviewed General: nv, confused, sedated Heent: bilateral eye normal inspection, bilateral eye PERRL ++Ng Respiratory: normal breath sounds, no respiratory distress, intubated+++ Cardiovascular: regular rate, rhythm, no edema Gastrointestinal: normal inspection, soft, non-distended Rectal: deferred Musculoskeletal: normal range of motion, non-tender Neurologic: alert, motor strength/tone normal, sensory intact, responsive, speech normal Skin: Decubitus/Ulcer - See RN skin exam. : jamaal+ Greg Cabral MD June 25, 2019 15:56
--- NOTE | 2019-06-25 16:30 | Diagnostic Imaging Report ---
EXAM: XRAY Abdomen 1v HISTORY: NG tube placement COMPARISON: 06/24/2019 at 0157 hours. Present study at 0816 hours. TECHNIQUE: Frontal view of the abdomen obtained. FINDINGS: Radiograph includes the lower chest and upper abdomen only. NG tube appears in place. Bowel gas pattern grossly unremarkable to the extent visualized. No definite pathologic calcifications identified. There is no sign of free air. Hazy infiltrates noted in both lungs. IMPRESSION: NG TUBE IN STOMACH. HAZY INFILTRATES BOTH LUNGS.
--- NOTE | 2019-06-25 16:50 | General Progress Note ---
Assessment/Plan Problem List: (1) Anemia ICD Codes: D64.9 - Anemia, unspecified SNOMED: 829023469 (2) Renal failure ICD Codes: N19 - Unspecified kidney failure SNOMED: 33035128 (3) Suspected COVID-19 virus infection ICD Codes: R68.89 - Other general symptoms and signs SNOMED: 670044220 (4) HTN (hypertension) ICD Codes: I10 - Essential (primary) hypertension SNOMED: 67360701 (5) CASSANDRA (acute kidney injury) ICD Codes: N17.9 - Acute kidney failure, unspecified SNOMED: 9009061, 20254180 (6) Anemia in chronic kidney disease (CKD) ICD Codes: N18.9 - Chronic kidney disease, unspecified; D63.1 - Anemia in chronic kidney disease SNOMED: 590763537 (7) Suspected COVID-19 virus infection ICD Codes: R68.89 - Other general symptoms and signs SNOMED: 420653398 Status: unchanged Assessment/Plan: Hd per renal low k.replacement per renal anemia not improving pna covid positve resp failure sepsis hyponatrmia resolved supportive therapy leukoytosis poor prognosis htn Subjective ROS Limited/Unobtainable: Yes Allergies: Coded Allergies: No Known Allergies (Unverified , 05/28/19) Objective Last 24 Hour Vital Signs Date Time Temp Pulse Resp B/P (MAP) Pulse Ox O2 Delivery O2 Flow Rate FiO2 06/25/19 16:30 75 7 159/78 (105) 100 06/25/19 16:00 Mechanical Ventilator 06/25/19 16:00 104 06/25/19 16:00 30 06/25/19 16:00 98.8 86 24 144/74 (97) 99 06/25/19 15:30 84 26 99 Mechanical Ventilator 30 88 28 30 06/25/19 15:00 75 20 137/66 (89) 100 06/25/19 14:38 82/49 06/25/19 14:30 85 20 82/49 (60) 98 06/25/19 14:00 119 16 117/58 (77) 99 06/25/19 13:30 109 27 98/50 (66) 98 06/25/19 13:00 99.3 06/25/19 13:00 119 14 104/79 (87) 98 06/25/19 12:30 126 25 139/74 (95) 97 06/25/19 12:02 139 38 30 06/25/19 12:00 Mechanical Ventilator 06/25/19 12:00 138 06/25/19 12:00 30 06/25/19 12:00 99.6 149 37 173/79 (110) 100 06/25/19 11:30 122 38 132/69 (90) 98 06/25/19 11:00 106 39 159/85 (109) 98 06/25/19 10:57 81 26 98 Mechanical Ventilator 30 96 28 30 06/25/19 10:30 95 24 144/79 (100) 99 06/25/19 10:00 107 28 169/87 (114) 98 06/25/19 09:02 98 06/25/19 09:00 98 28 116/63 (80) 98 06/25/19 08:00 Mechanical Ventilator 06/25/19 08:00 99.5 78 27 96/58 (71) 98 06/25/19 08:00 81 06/25/19 07:30 30 06/25/19 07:24 98 26 100 Mechanical Ventilator 30 98 30 30 30 06/25/19 07:00 24 92/55 Mechanical Ventilator 30 06/25/19 07:00 77 25 97/62 (74) 100 06/25/19 06:30 86 26 06/25/19 06:30 86 10 116/73 (87) 100 06/25/19 06:11 31 165/104 Mechanical Ventilator 30 06/25/19 06:00 99 21 113/60 (77) 97 06/25/19 06:00 21 113/60 Mechanical Ventilator 30 06/25/19 05:30 108 29 142/71 (94) 98 06/25/19 05:00 123 22 165/74 (104) 98 06/25/19 05:00 22 165/74 Mechanical Ventilator 30 06/25/19 04:30 91 27 117/61 (79) 98 06/25/19 04:00 91 27 119/60 (79) 98 06/25/19 04:00 91 06/25/19 04:00 Mechanical Ventilator 06/25/19 04:00 30 06/25/19 04:00 27 119/60 Mechanical Ventilator 30 06/25/19 03:30 92 26 148/71 (96) 98 5/15/20 03:21 78 26 100 Mechanical Ventilator 30 80 26 30 06/25/19 03:00 27 154/76 Mechanical Ventilator 30 06/25/19 03:00 98 8 157/57 (90) 99 06/25/19 02:30 79 23 109/56 (73) 98 06/25/19 02:00 82 21 143/64 (90) 100 06/25/19 02:00 26 126/63 Mechanical Ventilator 30 06/25/19 01:30 81 17 126/63 (84) 99 06/25/19 01:00 24 143/64 Mechanical Ventilator 30 06/25/19 01:00 81 24 117/66 (83) 99 06/25/19 00:30 79 26 121/62 (81) 99 06/25/19 00:00 Mechanical Ventilator 06/25/19 00:00 98.5 89 16 163/67 (99) 99 06/25/19 00:00 24 163/67 Mechanical Ventilator 30 06/24/19 23:30 101 20 160/75 (103) 99 06/24/19 23:13 91 31 100 Mechanical Ventilator 30 92 32 30 06/24/19 23:00 87 21 132/66 (88) 100 06/24/19 23:00 26 132/66 Mechanical Ventilator 30 06/24/19 22:30 89 24 143/67 (92) 100 06/24/19 22:00 85 20 147/102 (117) 100 06/24/19 22:00 22 147/102 Mechanical Ventilator 30 06/24/19 21:30 93 24 148/68 (94) 96 06/24/19 21:00 26 149/64 Mechanical Ventilator 30 06/24/19 21:00 79 24 149/64 (92) 100 06/24/19 20:30 75 28 101/56 (71) 99 06/24/19 20:00 Mechanical Ventilator 06/24/19 20:00 76 06/24/19 20:00 27 115/54 Mechanical Ventilator 30 06/24/19 20:00 30 06/24/19 20:00 98.7 81 28 115/54 (74) 99 06/24/19 19:30 85 30 89/52 (64) 100 06/24/19 19:20 97 31 100 Mechanical Ventilator 30 98 31 30 06/24/19 19:00 93 4 122/62 (82) 100 06/24/19 19:00 24 122/62 Mechanical Ventilator 30 06/24/19 19:00 122/62 06/24/19 18:30 86 26 149/70 (96) 100 06/24/19 18:00 98.6 81 21 112/58 (76) 100 06/24/19 18:00 28 122/58 Mechanical Ventilator 30 06/24/19 18:00 112/58 06/24/19 17:00 26 115/55 Mechanical Ventilator 30 06/24/19 17:00 115/55 06/24/19 17:00 87 23 107/57 (74) 99 Intake and Output 06/24/19 06/25/19 19:00 07:00 Intake Total 690.65 ml 820 ml Output Total 3050 ml 10 ml Balance -2359.35 ml 810 ml Free Water 90 ml 160 ml IV Total 180.65 ml 240 ml Tube Feeding 420 ml 420 ml Output Urine Total 50 ml 10 ml Hemodialysis UF 3000 ml # Bowel Movements 3 1 Laboratory Tests 06/25/19 03:45: White Blood Count 11.2H, Red Blood Count 2.70L, Hemoglobin 8.1L, Hematocrit 25.1L, Mean Corpuscular Volume 93, Mean Corpuscular Hemoglobin 30.1, Mean Corpuscular Hemoglobin Concent 32.5, Red Cell Distribution Width 18.1H, Platelet Count 285, Mean Platelet Volume 6.9, Neutrophils (%) (Auto) , Lymphocytes (%) (Auto) , Monocytes (%) (Auto) , Eosinophils (%) (Auto) , Basophils (%) (Auto) , Differential Total Cells Counted 100, Neutrophils % ( Manual) 92H, Lymphocytes % (Manual) 2L, Monocytes % (Manual) 5, Eosinophils % ( Manual) 1, Basophils % (Manual) 0, Band Neutrophils 0, Platelet Estimate Adequate, Platelet Morphology Normal, Polychromasia 1+, Anisocytosis 1+, Sodium Level 135L, Potassium Level 3.1L, Chloride Level 95L, Carbon Dioxide Level 27, Anion Gap 13, Blood Urea Nitrogen 47H, Creatinine 5.8H, Estimat Glomerular Filtration Rate 9.8, Glucose Level 160H, Calcium Level 8.7, Phosphorus Level 2.9 , Magnesium Level 2.2, Total Bilirubin 0.3, Aspartate Amino Transf (AST/SGOT) 23 , Alanine Aminotransferase (ALT/SGPT) 10L, Alkaline Phosphatase 88, C-Reactive Protein, Quantitative 23.3H, Total Protein 7.2, Albumin 1.6L, Globulin 5.6, Albumin/Globulin Ratio 0.3L 06/25/19 08:35: Arterial Blood pH 7.431, Arterial Blood Partial Pressure CO2 40.4, Arterial Blood Partial Pressure O2 91.1, Arterial Blood HCO3 26.3H, Arterial Blood Oxygen Saturation 97.2, Arterial Blood Base Excess 1.8, Kosta Test Positive Height (Feet): 6 Height (Inches): 1.00 Weight (Pounds): 245 Karishma Mulligan MD June 25, 2019 16:50
[2019-06-25] MEDS: Dyna-Hex 2% Top Sol 2oz TOPIC SCH (19:48)
[2019-06-25] MEDS: Epoetin Alfa-EPBX(ESRD on dialysis)10,000 unit/ml vial SUBQ SCH (21:23)
[2019-06-26] VITALS (39 sets, daily range): BP systolic 96–160; BP diastolic 51–98
[2019-06-26] MEDS: Albuterol 90mcg Inhaler 8gm INH SCH ×6 (03:07→22:58)
[2019-06-26] MEDS: NovoLOG Insulin Flexpen SUBQ SCH ×4 (06:04→22:44)
[2019-06-26] MEDS: Renvela 800mg Pkt NG SCH ×3 (06:04→21:33)
[2019-06-26 06:05] LABS: HEMATOCRIT 24.6 % (42.0-52.0); HEMOGLOBIN 7.9 G/DL (14.2-18.0); MEAN CORPUSCULAR VOLUME 93 FL (80-99); PLATELET COUNT 319 K/UL (150-450); RED BLOOD COUNT 2.63 M/UL (4.70-6.10); RED CELL DISTRIBUTION WIDTH 18.4 % (11.6-14.8); WHITE BLOOD COUNT 13.6 K/UL (4.8-10.8)
[2019-06-26 06:13] LABS: ALANINE AMINOTRANSFERASE 8 U/L (12-78); ALBUMIN 1.5 G/DL (3.4-5.0); ALBUMIN/GLOBULIN RATIO 0.3 (1.0-2.7); ALKALINE PHOSPHATASE 79 U/L (46-116); ASPARTATE AMINO TRANSFERASE 20 U/L (15-37); BILIRUBIN,TOTAL 0.3 MG/DL (0.2-1.0); BLOOD UREA NITROGEN 57 mg/dL (7-18); CALCIUM 8.5 MG/DL (8.5-10.1); CARBON DIOXIDE 25 MMOL/L (21-32); CHLORIDE 96 MMOL/L (98-107); CREATININE 6.8 MG/DL (0.55-1.30); PHOSPHORUS 3.7 MG/DL (2.5-4.9); POTASSIUM 3.2 MMOL/L (3.5-5.1); SODIUM 136 MMOL/L (136-145)
--- NOTE | 2019-06-26 06:14 | Pulmonolgy Critical Care Note ---
Critical Care - Asmt/Plan Assessment/Plan: Pulmonary CCM Progress Note HPI: Patient is a 68 year old man, intermediate resident, admitted c/o shortness of breath, cough, noted to have Covid 19 Pneumonia, Respiratory Failure S/p intubation, CXR stable ETT adjusted Septic Shock, pressors off Preserved EF FIO2 40%-50%, P5, adequate O2 sats, remains on ACVC, tolerated weaning, remains sedated HD tolerated Hyponatremia stable Anemia stable Seen earlier Seen on 06/25/2019 ID following On HD per Renal Past Medical History: COPD, CKD, Hypertension, Anemia Hypotension requiring pressors, in ICU Persistently elevated WCC Allergies: No Known Allergies Improving Pulmonary Status on HD Physical Exam Vital Signs Noted Sedated on ventilator WDWN, no distress HEENT: NCAT,moist mm Chest: Occasional rhonchi Heart: HS1, HS2, RRR Abdomen: SNTND, no masses Extremities: Well perfused, no edema 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, 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, 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 Impression: COVID-19 virus infection Pneumonia Respiratory failure on ventilator Volume overload improving - on HD Hypotension on pressors Cardiomegaly Lymphopenia Elevated AST COPD Chronic Kidney Disease - HD H/o Hypertension Worsening anemia Plan: Antibiotics per ID HD Pressors PRN ACVC - wean as tolerated once pressors reduced/off 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 Monitor cultures/viral studies PPX Hemodialysis per Renal Psychiatry [facility] - [facility] requested for when available, [facility] - not available as yet Laboratory Tests Noted: CXR: Hypoventilatory exam, interstitial changes, cardiomegaly, improving infiltrates Subjective ROS Limited/Unobtainable: No Constitutional: Denies: fever Respiratory: Reports: dry cough, shortness of breath Gastrointestinal/Abdominal: Reports: diarrhea, other - colace was stopped Psychiatric: Reports: other - refuses labs Allergies: Coded Allergies: No Known Allergies (Unverified , 05/28/19) All Systems: reviewed and negative except above Labs noted Critical Care - Objective Last 24 Hour Vital Signs Date Time Temp Pulse Resp B/P (MAP) Pulse Ox O2 Delivery O2 Flow Rate FiO2 06/26/19 05:30 104 24 157/82 (107) 99 06/26/19 05:00 99.8 107 28 156/72 (100) 96 06/26/19 05:00 28 156/72 Mechanical Ventilator 30 06/26/19 05:00 156/72 06/26/19 04:30 75 27 118/51 (73) 99 06/26/19 04:00 Mechanical Ventilator 06/26/19 04:00 75 06/26/19 04:00 19 113/52 Mechanical Ventilator 30 06/26/19 04:00 113/52 06/26/19 04:00 75 19 113/52 (72) 99 06/26/19 04:00 30 06/26/19 03:30 75 26 124/56 (78) 99 06/26/19 03:07 73 26 100 Mechanical Ventilator 30 75 26 30 06/26/19 03:00 70 26 141/68 (92) 99 06/26/19 03:00 26 141/68 Mechanical Ventilator 30 06/26/19 03:00 141/68 06/26/19 02:30 70 26 119/63 (81) 100 06/26/19 02:00 24 120/56 Mechanical Ventilator 30 06/26/19 02:00 120/56 06/26/19 02:00 71 24 120/56 (77) 99 06/26/19 01:30 70 23 119/54 (75) 100 06/26/19 01:00 26 117/56 Mechanical Ventilator 30 06/26/19 01:00 117/56 06/26/19 01:00 75 24 117/56 (76) 100 06/26/19 00:30 70 25 118/57 (77) 100 06/26/19 00:00 98.8 73 25 126/56 (79) 100 06/26/19 00:00 30 126/56 Mechanical Ventilator 30 06/26/19 00:00 126/56 06/26/19 00:00 Mechanical Ventilator 06/25/19 23:30 67 26 136/70 (92) 100 06/25/19 23:00 70 26 100 Mechanical Ventilator 30 72 26 30 06/25/19 23:00 26 127/70 Mechanical Ventilator 30 06/25/19 23:00 127/70 06/25/19 23:00 68 28 127/70 (89) 100 06/25/19 22:47 24 129/61 Mechanical Ventilator 30 06/25/19 22:41 26 129/61 Mechanical Ventilator 30 06/25/19 22:30 68 27 129/61 (83) 100 06/25/19 22:00 66 26 123/61 (81) 100 06/25/19 22:00 28 123/61 Mechanical Ventilator 30 06/25/19 22:00 123/61 06/25/19 21:30 84 17 121/61 (81) 100 06/25/19 21:00 69 30 115/58 (77) 100 06/25/19 21:00 28 118/58 Mechanical Ventilator 30 06/25/19 21:00 118/58 06/25/19 20:30 88 24 138/66 (90) 99 06/25/19 20:20 172/89 06/25/19 20:00 97.6 84 25 167/73 (104) 100 06/25/19 20:00 30 06/25/19 20:00 Mechanical Ventilator 06/25/19 20:00 28 167/73 Mechanical Ventilator 30 06/25/19 20:00 167/73 06/25/19 20:00 84 06/25/19 19:30 90 28 154/64 (94) 100 06/25/19 19:05 87 26 100 Mechanical Ventilator 30 89 29 30 06/25/19 19:00 28 152/62 Mechanical Ventilator 30 06/25/19 19:00 152/62 06/25/19 19:00 93 25 152/62 (92) 99 06/25/19 18:00 26 141/68 Mechanical Ventilator 30 06/25/19 18:00 141/68 06/25/19 18:00 74 26 127/62 (83) 100 06/25/19 17:30 69 26 120/64 (82) 100 06/25/19 17:00 20 127/62 Mechanical Ventilator 30 06/25/19 17:00 146/64 06/25/19 17:00 77 22 146/64 (91) 100 06/25/19 16:30 127/62 06/25/19 16:30 75 7 159/78 (105) 100 06/25/19 16:00 Mechanical Ventilator 06/25/19 16:00 104 06/25/19 16:00 30 06/25/19 16:00 18 136/66 Mechanical Ventilator 30 06/25/19 16:00 142/69 06/25/19 16:00 98.8 86 24 144/74 (97) 99 06/25/19 15:30 84 26 99 Mechanical Ventilator 30 88 28 30 06/25/19 15:00 17 136/66 Mechanical Ventilator 30 06/25/19 15:00 136/66 06/25/19 15:00 75 20 137/66 (89) 100 06/25/19 14:38 82/49 06/25/19 14:30 85 20 82/49 (60) 98 06/25/19 14:00 119 16 117/58 (77) 99 06/25/19 14:00 17 109/57 Mechanical Ventilator 30 06/25/19 13:30 109 27 98/50 (66) 98 06/25/19 13:00 20 99/55 Mechanical Ventilator 30 06/25/19 13:00 99.3 06/25/19 13:00 119 14 104/79 (87) 98 06/25/19 12:30 126 25 139/74 (95) 97 06/25/19 12:02 139 38 30 06/25/19 12:00 Mechanical Ventilator 06/25/19 12:00 138 06/25/19 12:00 34 129/75 Mechanical Ventilator 30 06/25/19 12:00 30 06/25/19 12:00 99.6 149 37 173/79 (110) 100 06/25/19 11:30 122 38 132/69 (90) 98 06/25/19 11:00 106 39 159/85 (109) 98 06/25/19 10:57 81 26 98 Mechanical Ventilator 30 96 28 30 06/25/19 10:30 95 24 144/79 (100) 99 06/25/19 10:00 107 28 169/87 (114) 98 06/25/19 09:02 98 06/25/19 09:00 98 28 116/63 (80) 98 06/25/19 08:00 Mechanical Ventilator 06/25/19 08:00 99.5 78 27 96/58 (71) 98 06/25/19 08:00 81 06/25/19 07:30 30 06/25/19 07:30 26 99/55 Mechanical Ventilator 30 06/25/19 07:24 98 26 100 Mechanical Ventilator 30 98 30 30 30 06/25/19 07:00 24 92/55 Mechanical Ventilator 30 06/25/19 07:00 77 25 97/62 (74) 100 06/25/19 06:30 86 26 06/25/19 06:30 86 10 116/73 (87) 100 Accucheck: 162 Critical Care - Subjective ROS Limited/Unobtainable: Yes Condition: improving IV Access: central FI02: 30 Vent Support Breath Rate: 26 Vent Support Mode: AC Vent Tidal Volume: 500 Sputum Amount: Small PEEP: 5.0 PIP: 23 Tube Feeding Amount: 0 I&O: Intake and Output 06/25/19 06/26/19 19:00 07:00 Intake Total 812.355 ml 327.40 ml Output Total 75 ml 0 ml Balance 737.355 ml 327.40 ml Free Water 200 ml IV Total 192.355 ml 222.40 ml Tube Feeding 420 ml 105 ml Output Urine Total 75 ml 0 ml # Bowel Movements 2 ET-Tube: 7.5 ET Position: 26 Arturo Mckeon MD June 26, 2019 06:14
--- NOTE | 2019-06-26 07:17 | General Progress Note ---
Assessment/Plan Status: unchanged Assessment/Plan: 1. Diabetes. 2. Hypertension. 3. Coronary artery disease. 4. COPD. 5. Psychiatric disorder with schizophrenia. 6. History of hepatitis C. 7. HLP. 8. Chronic kidney disease, now with acute renal failure. 9. Anemia. 10. Hypothyroidism. 11. Spinal stenosis. 12. Constipation. 13. GERD. 14. COVID positive HD per nephrology TF>> on hold for weaning recent labs and notes reviewed TF nephro at 35 cc and tolerated stable H&H will fu Subjective ROS Limited/Unobtainable: No Allergies: Coded Allergies: No Known Allergies (Unverified , 05/28/19) Objective Last 24 Hour Vital Signs Date Time Temp Pulse Resp B/P (MAP) Pulse Ox O2 Delivery O2 Flow Rate FiO2 06/26/19 06:30 98 25 06/26/19 06:00 100 28 138/65 (89) 99 06/26/19 05:30 104 24 157/82 (107) 99 06/26/19 05:00 99.8 107 28 156/72 (100) 96 06/26/19 05:00 28 156/72 Mechanical Ventilator 30 06/26/19 05:00 156/72 06/26/19 04:30 75 27 118/51 (73) 99 06/26/19 04:00 Mechanical Ventilator 06/26/19 04:00 75 06/26/19 04:00 19 113/52 Mechanical Ventilator 30 06/26/19 04:00 113/52 06/26/19 04:00 75 19 113/52 (72) 99 06/26/19 04:00 30 06/26/19 03:30 75 26 124/56 (78) 99 06/26/19 03:07 73 26 100 Mechanical Ventilator 30 75 26 30 06/26/19 03:00 70 26 141/68 (92) 99 06/26/19 03:00 26 141/68 Mechanical Ventilator 30 06/26/19 03:00 141/68 06/26/19 02:30 70 26 119/63 (81) 100 06/26/19 02:00 24 120/56 Mechanical Ventilator 30 06/26/19 02:00 120/56 06/26/19 02:00 71 24 120/56 (77) 99 06/26/19 01:30 70 23 119/54 (75) 100 06/26/19 01:00 26 117/56 Mechanical Ventilator 30 06/26/19 01:00 117/56 06/26/19 01:00 75 24 117/56 (76) 100 06/26/19 00:30 70 25 118/57 (77) 100 06/26/19 00:00 98.8 73 25 126/56 (79) 100 06/26/19 00:00 30 126/56 Mechanical Ventilator 30 06/26/19 00:00 126/56 06/26/19 00:00 Mechanical Ventilator 06/25/19 23:30 67 26 136/70 (92) 100 06/25/19 23:00 70 26 100 Mechanical Ventilator 30 72 26 30 06/25/19 23:00 26 127/70 Mechanical Ventilator 30 06/25/19 23:00 127/70 06/25/19 23:00 68 28 127/70 (89) 100 06/25/19 22:47 24 129/61 Mechanical Ventilator 30 06/25/19 22:41 26 129/61 Mechanical Ventilator 30 06/25/19 22:30 68 27 129/61 (83) 100 06/25/19 22:00 66 26 123/61 (81) 100 06/25/19 22:00 28 123/61 Mechanical Ventilator 30 06/25/19 22:00 123/61 06/25/19 21:30 84 17 121/61 (81) 100 06/25/19 21:00 69 30 115/58 (77) 100 06/25/19 21:00 28 118/58 Mechanical Ventilator 30 06/25/19 21:00 118/58 06/25/19 20:30 88 24 138/66 (90) 99 06/25/19 20:20 172/89 06/25/19 20:00 97.6 84 25 167/73 (104) 100 06/25/19 20:00 30 06/25/19 20:00 Mechanical Ventilator 06/25/19 20:00 28 167/73 Mechanical Ventilator 30 06/25/19 20:00 167/73 06/25/19 20:00 84 06/25/19 19:30 90 28 154/64 (94) 100 06/25/19 19:05 87 26 100 Mechanical Ventilator 30 89 29 30 06/25/19 19:00 28 152/62 Mechanical Ventilator 30 5/15/20 19:00 152/62 5/15/20 19:00 93 25 152/62 (92) 99 06/25/19 18:00 26 141/68 Mechanical Ventilator 30 06/25/19 18:00 141/68 06/25/19 18:00 74 26 127/62 (83) 100 06/25/19 17:30 69 26 120/64 (82) 100 06/25/19 17:00 20 127/62 Mechanical Ventilator 30 06/25/19 17:00 146/64 06/25/19 17:00 77 22 146/64 (91) 100 06/25/19 16:30 127/62 06/25/19 16:30 75 7 159/78 (105) 100 06/25/19 16:00 Mechanical Ventilator 06/25/19 16:00 104 06/25/19 16:00 30 06/25/19 16:00 18 136/66 Mechanical Ventilator 30 06/25/19 16:00 142/69 06/25/19 16:00 98.8 86 24 144/74 (97) 99 06/25/19 15:30 84 26 99 Mechanical Ventilator 30 88 28 30 06/25/19 15:00 17 136/66 Mechanical Ventilator 30 06/25/19 15:00 136/66 06/25/19 15:00 75 20 137/66 (89) 100 06/25/19 14:38 82/49 06/25/19 14:30 85 20 82/49 (60) 98 06/25/19 14:00 119 16 117/58 (77) 99 06/25/19 14:00 17 109/57 Mechanical Ventilator 30 06/25/19 13:30 109 27 98/50 (66) 98 06/25/19 13:00 20 99/55 Mechanical Ventilator 30 06/25/19 13:00 99.3 06/25/19 13:00 119 14 104/79 (87) 98 06/25/19 12:30 126 25 139/74 (95) 97 06/25/19 12:02 139 38 30 06/25/19 12:00 Mechanical Ventilator 06/25/19 12:00 138 06/25/19 12:00 34 129/75 Mechanical Ventilator 30 06/25/19 12:00 30 06/25/19 12:00 99.6 149 37 173/79 (110) 100 06/25/19 11:30 122 38 132/69 (90) 98 06/25/19 11:00 106 39 159/85 (109) 98 06/25/19 10:57 81 26 98 Mechanical Ventilator 30 96 28 30 06/25/19 10:30 95 24 144/79 (100) 99 06/25/19 10:00 107 28 169/87 (114) 98 06/25/19 09:02 98 06/25/19 09:00 98 28 116/63 (80) 98 06/25/19 08:00 Mechanical Ventilator 06/25/19 08:00 99.5 78 27 96/58 (71) 98 06/25/19 08:00 81 06/25/19 07:30 30 06/25/19 07:30 26 99/55 Mechanical Ventilator 30 06/25/19 07:24 98 26 100 Mechanical Ventilator 30 98 30 30 30 Intake and Output 06/25/19 06/26/19 19:00 07:00 Intake Total 812.355 ml 327.40 ml Output Total 75 ml 60 ml Balance 737.355 ml 267.40 ml Free Water 200 ml IV Total 192.355 ml 222.40 ml Tube Feeding 420 ml 105 ml Output Urine Total 75 ml 60 ml # Bowel Movements 2 Laboratory Tests 06/25/19 08:35: Arterial Blood pH 7.431, Arterial Blood Partial Pressure CO2 40.4, Arterial Blood Partial Pressure O2 91.1, Arterial Blood HCO3 26.3H, Arterial Blood Oxygen Saturation 97.2, Arterial Blood Base Excess 1.8, Kosta Test Positive 06/26/19 04:00: White Blood Count 13.6H, Red Blood Count 2.63L, Hemoglobin 7.9L, Hematocrit 24.6L, Mean Corpuscular Volume 93, Mean Corpuscular Hemoglobin 29.9, Mean Corpuscular Hemoglobin Concent 32.0, Red Cell Distribution Width 18.4H, Platelet Count 319, Mean Platelet Volume 6.8, Neutrophils (%) (Auto) , Lymphocytes (%) (Auto) , Monocytes (%) (Auto) , Eosinophils (%) (Auto) , Basophils (%) (Auto) , Neutrophils % (Manual) [Pending], Lymphocytes % (Manual) [Pending], Platelet Estimate [Pending], Platelet Morphology [Pending], Sodium Level 136, Potassium Level 3.2L, Chloride Level 96L, Carbon Dioxide Level 25, Blood Urea Nitrogen 57H, Creatinine 6.8H, Estimat Glomerular Filtration Rate 8.2 , Glucose Level 135H, Calcium Level 8.5, Phosphorus Level 3.7, Magnesium Level 2.2, Total Bilirubin 0.3, Aspartate Amino Transf (AST/SGOT) 20, Alanine Aminotransferase (ALT/SGPT) 8L, Alkaline Phosphatase 79, Total Protein 7.1, Albumin 1.5L, Globulin 5.6, Albumin/Globulin Ratio 0.3L Height (Feet): 6 Height (Inches): 1.00 Weight (Pounds): 237 General Appearance: no apparent distress EENT: normal ENT inspection Neck: supple Cardiovascular: normal rate Respiratory/Chest: decreased breath sounds Abdomen: normal bowel sounds, non tender, soft Extremities: non-tender Marito Ramires MD June 26, 2019 07:17
[2019-06-26] MEDS: Midodrine 10mg tab NG SCH ×3 (08:47→17:19)
[2019-06-26] MEDS: Pantoprazole Inj IVP SCH (08:47)
[2019-06-26] MEDS: Docusate 100mg/10ml Liq NG SCH ×3 (08:47→17:19)
[2019-06-26] MEDS: Enoxaparin 30mg Inj SUBQ SCH (08:48)
--- NOTE | 2019-06-26 12:04 | Nephrology Progress Note ---
Assessment/Plan Problem List: (1) CASSANDRA (acute kidney injury) (2) Anemia in chronic kidney disease (CKD) (3) HTN (hypertension) (4) COVID-19 Assessment Acute renal failure most likely superimposed on chronic kidney disease Suspected COVID-19 virus infection Possible Pneumonia, lymphopenia, elevated AST Cardiomegaly, possible CHF COPD Hypertension Anemia, most likely related to chronic kidney disease Plan June 16: On dialysis now Potassium supplement implemented Continue per consultants Next dialysis June 27June 15: Status unchanged Dialyzed yesterday will dialyze again tomorrow Potassium supplements given Discussed with RN June 14: Due dialysis today Status: Remains intubated on ventilator June 22: Status unchanged Dialyzed yesterday and due for dialysis tomorrow Serum sodium stable today June 21 Remains intubated on ventilator Due dialysis today Emphasized high sodium bath for dialysis June 20: Remains intubated on ventilator Dialyzed June 19 next dialysis June 21 Serum sodium 128, will give 250 cc 3% saline Remains full code Discussed with RN Iron panel ordered June 19: Discussed with RN. Patient due for dialysis today. Continue pulmonary support. Remains full code. June 18: Patient dialyzed yesterday June 17 Serum sodium improved but still low Arrange for dialysis tomorrow June 19 Continue per consultants June 8: Due for dialysis today Today's lab reviewed, low serum sodium noted, Emphasized on high sodium bath to dialysis nurse Discussed with SHANIQUE Yuen June 7: Dialyzed yesterday Remains intubated Labs reviewed, serum sodium 131 Plan to dialyze tomorrow June 17 with high sodium bath Discussed with SHANIQUE Yuen June 15: Due for dialysis today Labs reviewed Discussed with RN Transfuse 1 unit of packed RBCs today for low hemoglobin of 7.1 June 5: Blood pressure well maintained Receive dialysis June 13 next hemodialysis June 15June 4: Discussed with RN in ICU Patient did not receive proper dialysis yesterday due to dialysis catheter malfunction Catheter to be adjusted today and dialyzed to be resumed today Continue per consultants Positive for COVID 28 June 2: Patient now intubated on mechanical ventilation Discussed with SHANIQUE Yuen, today June 12 Patient received dialysis yesterday June 10 next hemodialysis June 12 Blood pressure better maintained Today's labs reviewed Continue per consultants Previously patient received dialysis last evening June 05, next dialysis June 07 which was incomplete due to patient's hypotension Will start on midodrine for blood pressure support. Meanwhile continue other pressors as needed Previously Patient is doing poorly, septic, white blood cells are rising, Hypotension somewhat improved We will keep n.p.o. , NG tube for medications, and change medication to IV as needed Patient remains full code Monitor vancomycin level Previously: Patient pulled out his femoral catheter yesterday June 03 which was reinserted by Dr. Mast Patient scheduled for dialysis again June 04, which again was not done due to dialysis nurse citing catheter malfunction Meanwhile continue management per ID, pulmonary , and psych. Meanwhile white blood cell count is rising. Patient blood pressure borderline low. Will check ABG Previously May 31 : I believe patient need dialysis treatment He however needs to competency assessment if can make decisions or not I will communicate with Dr. Mulligan Previously: Per pulmonary and ID advice Adjust blood pressure medication Renal diet Anemia work-up 2D echocardiogram refused Kidney ultrasound refused Jules catheter Urine studies Per orders Subjective ROS Limited/Unobtainable: Yes Objective Objective Last 24 Hour Vital Signs Date Time Temp Pulse Resp B/P (MAP) Pulse Ox O2 Delivery O2 Flow Rate FiO2 06/26/19 11:00 125 27 117/98 (104) 99 06/26/19 11:00 117/98 06/26/19 10:48 120 30 99 Mechanical Ventilator 30 115 29 30 06/26/19 10:30 104 27 109/68 (82) 100 06/26/19 10:00 148/67 06/26/19 10:00 104 27 148/67 (94) 99 06/26/19 09:30 98 27 131/61 (84) 100 06/26/19 09:00 98.6 97 27 130/64 (86) 98 06/26/19 09:00 130/64 06/26/19 08:30 107 28 141/66 (91) 99 06/26/19 08:02 98 06/26/19 08:00 Mechanical Ventilator 06/26/19 08:00 30 06/26/19 08:00 106 26 135/67 (89) 99 06/26/19 08:00 120 06/26/19 08:00 135/67 06/26/19 07:35 30 06/26/19 07:31 118 32 98 Mechanical Ventilator 30 112 28 30 06/26/19 07:00 102 26 122/67 (85) 99 06/26/19 07:00 122/67 06/26/19 06:30 98 25 137/63 (87) 99 06/26/19 06:30 98 25 06/26/19 06:00 100 28 138/65 (89) 99 06/26/19 06:00 132/75 06/26/19 05:30 104 24 157/82 (107) 99 06/26/19 05:00 99.8 107 28 156/72 (100) 96 06/26/19 05:00 28 156/72 Mechanical Ventilator 30 06/26/19 05:00 156/72 06/26/19 04:30 75 27 118/51 (73) 99 06/26/19 04:00 Mechanical Ventilator 06/26/19 04:00 75 06/26/19 04:00 19 113/52 Mechanical Ventilator 30 06/26/19 04:00 113/52 06/26/19 04:00 75 19 113/52 (72) 99 06/26/19 04:00 30 06/26/19 03:30 75 26 124/56 (78) 99 06/26/19 03:07 73 26 100 Mechanical Ventilator 30 75 26 30 06/26/19 03:00 70 26 141/68 (92) 99 06/26/19 03:00 26 141/68 Mechanical Ventilator 30 06/26/19 03:00 141/68 06/26/19 02:30 70 26 119/63 (81) 100 06/26/19 02:00 24 120/56 Mechanical Ventilator 30 06/26/19 02:00 120/56 06/26/19 02:00 71 24 120/56 (77) 99 06/26/19 01:30 70 23 119/54 (75) 100 06/26/19 01:00 26 117/56 Mechanical Ventilator 30 06/26/19 01:00 117/56 06/26/19 01:00 75 24 117/56 (76) 100 06/26/19 00:30 70 25 118/57 (77) 100 06/26/19 00:00 98.8 73 25 126/56 (79) 100 06/26/19 00:00 30 126/56 Mechanical Ventilator 30 06/26/19 00:00 126/56 06/26/19 00:00 Mechanical Ventilator 06/25/19 23:30 67 26 136/70 (92) 100 06/25/19 23:00 70 26 100 Mechanical Ventilator 30 72 26 30 06/25/19 23:00 26 127/70 Mechanical Ventilator 30 06/25/19 23:00 127/70 06/25/19 23:00 68 28 127/70 (89) 100 06/25/19 22:47 24 129/61 Mechanical Ventilator 30 06/25/19 22:41 26 129/61 Mechanical Ventilator 30 06/25/19 22:30 68 27 129/61 (83) 100 06/25/19 22:00 66 26 123/61 (81) 100 06/25/19 22:00 28 123/61 Mechanical Ventilator 30 06/25/19 22:00 123/61 06/25/19 21:30 84 17 121/61 (81) 100 06/25/19 21:00 69 30 115/58 (77) 100 06/25/19 21:00 28 118/58 Mechanical Ventilator 30 06/25/19 21:00 118/58 06/25/19 20:30 88 24 138/66 (90) 99 06/25/19 20:20 172/89 06/25/19 20:00 97.6 84 25 167/73 (104) 100 06/25/19 20:00 30 06/25/19 20:00 Mechanical Ventilator 06/25/19 20:00 28 167/73 Mechanical Ventilator 30 06/25/19 20:00 167/73 06/25/19 20:00 84 06/25/19 19:30 90 28 154/64 (94) 100 06/25/19 19:05 87 26 100 Mechanical Ventilator 30 89 29 30 06/25/19 19:00 28 152/62 Mechanical Ventilator 30 06/25/19 19:00 152/62 06/25/19 19:00 93 25 152/62 (92) 99 06/25/19 18:00 26 141/68 Mechanical Ventilator 30 06/25/19 18:00 141/68 06/25/19 18:00 74 26 127/62 (83) 100 06/25/19 17:30 69 26 120/64 (82) 100 06/25/19 17:00 20 127/62 Mechanical Ventilator 30 06/25/19 17:00 146/64 06/25/19 17:00 77 22 146/64 (91) 100 06/25/19 16:30 127/62 06/25/19 16:30 75 7 159/78 (105) 100 06/25/19 16:00 Mechanical Ventilator 06/25/19 16:00 104 06/25/19 16:00 30 06/25/19 16:00 18 136/66 Mechanical Ventilator 30 06/25/19 16:00 142/69 06/25/19 16:00 98.8 86 24 144/74 (97) 99 06/25/19 15:30 84 26 99 Mechanical Ventilator 30 88 28 30 06/25/19 15:00 17 136/66 Mechanical Ventilator 30 06/25/19 15:00 136/66 06/25/19 15:00 75 20 137/66 (89) 100 06/25/19 14:38 82/49 06/25/19 14:30 85 20 82/49 (60) 98 06/25/19 14:00 119 16 117/58 (77) 99 06/25/19 14:00 17 109/57 Mechanical Ventilator 30 06/25/19 13:30 109 27 98/50 (66) 98 06/25/19 13:00 20 99/55 Mechanical Ventilator 30 06/25/19 13:00 99.3 06/25/19 13:00 119 14 104/79 (87) 98 06/25/19 12:30 126 25 139/74 (95) 97 Intake and Output 06/25/19 06/26/19 19:00 07:00 Intake Total 812.355 ml 335.88 ml Output Total 75 ml 60 ml Balance 737.355 ml 275.88 ml Free Water 200 ml IV Total 192.355 ml 230.88 ml Tube Feeding 420 ml 105 ml Output Urine Total 75 ml 60 ml # Bowel Movements 2 Laboratory Tests 06/26/19 04:00: White Blood Count 13.6H, Red Blood Count 2.63L, Hemoglobin 7.9L, Hematocrit 24.6L, Mean Corpuscular Volume 93, Mean Corpuscular Hemoglobin 29.9, Mean Corpuscular Hemoglobin Concent 32.0, Red Cell Distribution Width 18.4H, Platelet Count 319, Mean Platelet Volume 6.8, Neutrophils (%) (Auto) , Lymphocytes (%) (Auto) , Monocytes (%) (Auto) , Eosinophils (%) (Auto) , Basophils (%) (Auto) , Differential Total Cells Counted 100, Neutrophils % ( Manual) 82H, Lymphocytes % (Manual) 9L, Monocytes % (Manual) 8, Eosinophils % ( Manual) 1, Basophils % (Manual) 0, Band Neutrophils 0, Platelet Estimate Adequate, Platelet Morphology Normal, Polychromasia 1+, Hypochromasia 1+, Anisocytosis 1+, Sodium Level 136, Potassium Level 3.2L, Chloride Level 96L, Carbon Dioxide Level 25, Blood Urea Nitrogen 57H, Creatinine 6.8H, Estimat Glomerular Filtration Rate 8.2, Glucose Level 135H, Calcium Level 8.5, Phosphorus Level 3.7, Magnesium Level 2.2, Total Bilirubin 0.3, Aspartate Amino Transf (AST/SGOT) 20, Alanine Aminotransferase (ALT/SGPT) 8L, Alkaline Phosphatase 79, Total Protein 7.1, Albumin 1.5L, Globulin 5.6, Albumin/Globulin Ratio 0.3L Height (Feet): 6 Height (Inches): 1.00 Weight (Pounds): 237 General Appearance: no apparent distress, other - Currently being dialyzed EENT: other - Remains intubated on ventilator Cardiovascular: tachycardia Respiratory/Chest: decreased breath sounds Abdomen: distended Objective No change Mic Cole MD June 26, 2019 12:04
--- NOTE | 2019-06-26 13:00 | Cardiac Electrophysiology PN ---
Assessment/Plan Assessment/Plan 1. Elevated troponin. Troponin on May 27 and May 30 were negative, on June 01, it was elevated at 0.074. Repeat 0.05. Likely due to renal failure. On Aspirin. EF 60%. 2. Septic shock. Off Levo and on iv ABx 3. ESRD, on hemodialysis per Dr. Cole. 4. Respiratory failure due to COVID-19 positive pneumonia. On the Vent with 30% Fio2. Fu by Dr. Mckeon. 5. MRSA carrier. 6. COPD. 7. Anemia. 8. Depression. 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 On Levo 2 mcg. In SR. Is Covid positive x 3. Getting HD. Objective Last 24 Hour Vital Signs Date Time Temp Pulse Resp B/P (MAP) Pulse Ox O2 Delivery O2 Flow Rate FiO2 06/26/19 12:30 135 32 112/74 (87) 99 06/26/19 12:15 137 32 118/71 (87) 99 06/26/19 12:00 136 33 96/76 (83) 97 06/26/19 12:00 30 06/26/19 12:00 Mechanical Ventilator 06/26/19 11:00 125 27 117/98 (104) 99 06/26/19 11:00 117/98 06/26/19 10:48 120 30 99 Mechanical Ventilator 30 115 29 30 06/26/19 10:30 104 27 109/68 (82) 100 06/26/19 10:00 148/67 06/26/19 10:00 104 27 148/67 (94) 99 06/26/19 09:30 98 27 131/61 (84) 100 06/26/19 09:00 98.6 97 27 130/64 (86) 98 06/26/19 09:00 130/64 06/26/19 08:30 107 28 141/66 (91) 99 06/26/19 08:02 98 06/26/19 08:00 Mechanical Ventilator 06/26/19 08:00 30 06/26/19 08:00 106 26 135/67 (89) 99 06/26/19 08:00 120 06/26/19 08:00 135/67 06/26/19 07:35 30 06/26/19 07:31 118 32 98 Mechanical Ventilator 30 112 28 30 06/26/19 07:00 102 26 122/67 (85) 99 06/26/19 07:00 122/67 06/26/19 06:30 98 25 137/63 (87) 99 06/26/19 06:30 98 25 06/26/19 06:00 100 28 138/65 (89) 99 06/26/19 06:00 132/75 06/26/19 05:30 104 24 157/82 (107) 99 06/26/19 05:00 99.8 107 28 156/72 (100) 96 06/26/19 05:00 28 156/72 Mechanical Ventilator 30 06/26/19 05:00 156/72 06/26/19 04:30 75 27 118/51 (73) 99 06/26/19 04:00 Mechanical Ventilator 06/26/19 04:00 75 06/26/19 04:00 19 113/52 Mechanical Ventilator 30 06/26/19 04:00 113/52 06/26/19 04:00 75 19 113/52 (72) 99 06/26/19 04:00 30 06/26/19 03:30 75 26 124/56 (78) 99 06/26/19 03:07 73 26 100 Mechanical Ventilator 30 75 26 30 06/26/19 03:00 70 26 141/68 (92) 99 06/26/19 03:00 26 141/68 Mechanical Ventilator 30 06/26/19 03:00 141/68 06/26/19 02:30 70 26 119/63 (81) 100 06/26/19 02:00 24 120/56 Mechanical Ventilator 30 06/26/19 02:00 120/56 06/26/19 02:00 71 24 120/56 (77) 99 06/26/19 01:30 70 23 119/54 (75) 100 06/26/19 01:00 26 117/56 Mechanical Ventilator 30 06/26/19 01:00 117/56 06/26/19 01:00 75 24 117/56 (76) 100 06/26/19 00:30 70 25 118/57 (77) 100 06/26/19 00:00 98.8 73 25 126/56 (79) 100 06/26/19 00:00 30 126/56 Mechanical Ventilator 30 06/26/19 00:00 126/56 06/26/19 00:00 Mechanical Ventilator 06/25/19 23:30 67 26 136/70 (92) 100 06/25/19 23:00 70 26 100 Mechanical Ventilator 30 72 26 30 06/25/19 23:00 26 127/70 Mechanical Ventilator 30 06/25/19 23:00 127/70 06/25/19 23:00 68 28 127/70 (89) 100 06/25/19 22:47 24 129/61 Mechanical Ventilator 30 06/25/19 22:41 26 129/61 Mechanical Ventilator 30 06/25/19 22:30 68 27 129/61 (83) 100 06/25/19 22:00 66 26 123/61 (81) 100 06/25/19 22:00 28 123/61 Mechanical Ventilator 30 06/25/19 22:00 123/61 06/25/19 21:30 84 17 121/61 (81) 100 06/25/19 21:00 69 30 115/58 (77) 100 06/25/19 21:00 28 118/58 Mechanical Ventilator 30 06/25/19 21:00 118/58 06/25/19 20:30 88 24 138/66 (90) 99 06/25/19 20:20 172/89 06/25/19 20:00 97.6 84 25 167/73 (104) 100 06/25/19 20:00 30 06/25/19 20:00 Mechanical Ventilator 06/25/19 20:00 28 167/73 Mechanical Ventilator 30 06/25/19 20:00 167/73 06/25/19 20:00 84 06/25/19 19:30 90 28 154/64 (94) 100 06/25/19 19:05 87 26 100 Mechanical Ventilator 30 89 29 30 06/25/19 19:00 28 152/62 Mechanical Ventilator 30 06/25/19 19:00 152/62 06/25/19 19:00 93 25 152/62 (92) 99 06/25/19 18:00 26 141/68 Mechanical Ventilator 30 06/25/19 18:00 141/68 06/25/19 18:00 74 26 127/62 (83) 100 06/25/19 17:30 69 26 120/64 (82) 100 06/25/19 17:00 20 127/62 Mechanical Ventilator 30 06/25/19 17:00 146/64 06/25/19 17:00 77 22 146/64 (91) 100 06/25/19 16:30 127/62 06/25/19 16:30 75 7 159/78 (105) 100 06/25/19 16:00 Mechanical Ventilator 06/25/19 16:00 104 06/25/19 16:00 30 06/25/19 16:00 18 136/66 Mechanical Ventilator 30 06/25/19 16:00 142/69 06/25/19 16:00 98.8 86 24 144/74 (97) 99 06/25/19 15:30 84 26 99 Mechanical Ventilator 30 88 28 30 06/25/19 15:00 17 136/66 Mechanical Ventilator 30 06/25/19 15:00 136/66 06/25/19 15:00 75 20 137/66 (89) 100 06/25/19 14:38 82/49 06/25/19 14:30 85 20 82/49 (60) 98 06/25/19 14:00 119 16 117/58 (77) 99 06/25/19 14:00 17 109/57 Mechanical Ventilator 30 06/25/19 13:30 109 27 98/50 (66) 98 06/25/19 13:00 20 99/55 Mechanical Ventilator 30 06/25/19 13:00 99.3 06/25/19 13:00 119 14 104/79 (87) 98 Intake and Output 06/25/19 06/26/19 19:00 07:00 Intake Total 812.355 ml 335.88 ml Output Total 75 ml 60 ml Balance 737.355 ml 275.88 ml Free Water 200 ml IV Total 192.355 ml 230.88 ml Tube Feeding 420 ml 105 ml Output Urine Total 75 ml 60 ml # Bowel Movements 2 Laboratory Tests Test 06/26/19 04:00 White Blood Count 13.6 K/UL (4.8-10.8) H Red Blood Count 2.63 M/UL (4.70-6.10) L Hemoglobin 7.9 G/DL (14.2-18.0) L Hematocrit 24.6 % (42.0-52.0) L Mean Corpuscular Volume 93 FL (80-99) Mean Corpuscular Hemoglobin 29.9 PG (27.0-31.0) Mean Corpuscular Hemoglobin Concent 32.0 G/DL (32.0-36.0) Red Cell Distribution Width 18.4 % (11.6-14.8) H Platelet Count 319 K/UL (150-450) Mean Platelet Volume 6.8 FL (6.5-10.1) Neutrophils (%) (Auto) % (45.0-75.0) Lymphocytes (%) (Auto) % (20.0-45.0) Monocytes (%) (Auto) % (1.0-10.0) Eosinophils (%) (Auto) % (0.0-3.0) Basophils (%) (Auto) % (0.0-2.0) Differential Total Cells Counted 100 Neutrophils % (Manual) 82 % (45-75) H Lymphocytes % (Manual) 9 % (20-45) L Monocytes % (Manual) 8 % (1-10) Eosinophils % (Manual) 1 % (0-3) Basophils % (Manual) 0 % (0-2) Band Neutrophils 0 % (0-8) Platelet Estimate Adequate Platelet Morphology Normal Polychromasia 1+ Hypochromasia 1+ Anisocytosis 1+ Sodium Level 136 MMOL/L (136-145) Potassium Level 3.2 MMOL/L (3.5-5.1) L Chloride Level 96 MMOL/L (98-107) L Carbon Dioxide Level 25 MMOL/L (21-32) Blood Urea Nitrogen 57 mg/dL (7-18) H Creatinine 6.8 MG/DL (0.55-1.30) H Estimat Glomerular Filtration Rate 8.2 mL/min (>60) Glucose Level 135 MG/DL (74-106) H Calcium Level 8.5 MG/DL (8.5-10.1) Phosphorus Level 3.7 MG/DL (2.5-4.9) Magnesium Level 2.2 MG/DL (1.8-2.4) Total Bilirubin 0.3 MG/DL (0.2-1.0) Aspartate Amino Transf (AST/SGOT) 20 U/L (15-37) Alanine Aminotransferase (ALT/SGPT) 8 U/L (12-78) L Alkaline Phosphatase 79 U/L (46-116) Total Protein 7.1 G/DL (6.4-8.2) Albumin 1.5 G/DL (3.4-5.0) L Globulin 5.6 g/dL Albumin/Globulin Ratio 0.3 (1.0-2.7) L Microbiology Date/Time Source Procedure Growth Status 06/24/19 16:40 Nasopharynx Coronavirus COVID-19 PCR ([facility]) - Final Complete Objective HEAD AND NECK: No JVD. Orally intubated LUNGS: Decreased breath sounds. CARDIOVASCULAR: Regular S1 and S2. Tachycardic. ABDOMEN: Soft. EXTREMITIES: No pitting edema. New Left FV Gio Engle MD June 26, 2019 13:00
--- NOTE | 2019-06-26 14:42 | Surgery Progress Note ---
Surgery Progress Note Subjective Procedure Performed Right femoral temporary hemodialysis catheter insertion Additional Comments HD yesterday 3L removed labs noted ill appearing on vent min settings Objective Last 24 Hour Vital Signs Date Time Temp Pulse Resp B/P (MAP) Pulse Ox O2 Delivery O2 Flow Rate FiO2 06/26/19 14:15 104 27 140/69 (92) 100 06/26/19 14:00 28 125/77 Mechanical Ventilator 30 06/26/19 14:00 109 28 125/77 (93) 100 06/26/19 13:30 39 138/81 Mechanical Ventilator 30 06/26/19 13:00 135/84 06/26/19 13:00 127 39 135/84 (101) 100 06/26/19 12:30 135 32 112/74 (87) 99 06/26/19 12:15 137 32 118/71 (87) 99 06/26/19 12:00 127 06/26/19 12:00 98.9 136 33 96/76 (83) 97 06/26/19 12:00 96/76 06/26/19 12:00 30 06/26/19 12:00 Mechanical Ventilator 06/26/19 11:00 125 27 117/98 (104) 99 06/26/19 11:00 117/98 06/26/19 10:48 120 30 99 Mechanical Ventilator 30 115 29 30 06/26/19 10:30 104 27 109/68 (82) 100 06/26/19 10:00 148/67 06/26/19 10:00 104 27 148/67 (94) 99 06/26/19 09:30 98 27 131/61 (84) 100 06/26/19 09:00 98.6 97 27 130/64 (86) 98 06/26/19 09:00 130/64 06/26/19 08:30 107 28 141/66 (91) 99 06/26/19 08:02 98 06/26/19 08:00 Mechanical Ventilator 06/26/19 08:00 30 06/26/19 08:00 106 26 135/67 (89) 99 06/26/19 08:00 120 06/26/19 08:00 135/67 06/26/19 07:35 30 06/26/19 07:31 118 32 98 Mechanical Ventilator 30 112 28 30 06/26/19 07:00 102 26 122/67 (85) 99 06/26/19 07:00 122/67 06/26/19 06:30 98 25 137/63 (87) 99 06/26/19 06:30 98 25 06/26/19 06:00 100 28 138/65 (89) 99 06/26/19 06:00 132/75 06/26/19 05:30 104 24 157/82 (107) 99 06/26/19 05:00 99.8 107 28 156/72 (100) 96 06/26/19 05:00 28 156/72 Mechanical Ventilator 30 06/26/19 05:00 156/72 06/26/19 04:30 75 27 118/51 (73) 99 06/26/19 04:00 Mechanical Ventilator 06/26/19 04:00 75 06/26/19 04:00 19 113/52 Mechanical Ventilator 30 06/26/19 04:00 113/52 06/26/19 04:00 75 19 113/52 (72) 99 06/26/19 04:00 30 06/26/19 03:30 75 26 124/56 (78) 99 06/26/19 03:07 73 26 100 Mechanical Ventilator 30 75 26 30 06/26/19 03:00 70 26 141/68 (92) 99 06/26/19 03:00 26 141/68 Mechanical Ventilator 30 06/26/19 03:00 141/68 06/26/19 02:30 70 26 119/63 (81) 100 06/26/19 02:00 24 120/56 Mechanical Ventilator 30 06/26/19 02:00 120/56 06/26/19 02:00 71 24 120/56 (77) 99 06/26/19 01:30 70 23 119/54 (75) 100 06/26/19 01:00 26 117/56 Mechanical Ventilator 30 06/26/19 01:00 117/56 06/26/19 01:00 75 24 117/56 (76) 100 06/26/19 00:30 70 25 118/57 (77) 100 06/26/19 00:00 98.8 73 25 126/56 (79) 100 06/26/19 00:00 30 126/56 Mechanical Ventilator 30 06/26/19 00:00 126/56 06/26/19 00:00 Mechanical Ventilator 06/25/19 23:30 67 26 136/70 (92) 100 06/25/19 23:00 70 26 100 Mechanical Ventilator 30 72 26 30 06/25/19 23:00 26 127/70 Mechanical Ventilator 30 06/25/19 23:00 127/70 06/25/19 23:00 68 28 127/70 (89) 100 06/25/19 22:47 24 129/61 Mechanical Ventilator 30 06/25/19 22:41 26 129/61 Mechanical Ventilator 30 06/25/19 22:30 68 27 129/61 (83) 100 06/25/19 22:00 66 26 123/61 (81) 100 06/25/19 22:00 28 123/61 Mechanical Ventilator 30 06/25/19 22:00 123/61 06/25/19 21:30 84 17 121/61 (81) 100 06/25/19 21:00 69 30 115/58 (77) 100 06/25/19 21:00 28 118/58 Mechanical Ventilator 30 06/25/19 21:00 118/58 06/25/19 20:30 88 24 138/66 (90) 99 06/25/19 20:20 172/89 06/25/19 20:00 97.6 84 25 167/73 (104) 100 06/25/19 20:00 30 06/25/19 20:00 Mechanical Ventilator 06/25/19 20:00 28 167/73 Mechanical Ventilator 30 06/25/19 20:00 167/73 06/25/19 20:00 84 06/25/19 19:30 90 28 154/64 (94) 100 06/25/19 19:05 87 26 100 Mechanical Ventilator 30 89 29 30 06/25/19 19:00 28 152/62 Mechanical Ventilator 30 06/25/19 19:00 152/62 06/25/19 19:00 93 25 152/62 (92) 99 06/25/19 18:00 26 141/68 Mechanical Ventilator 30 06/25/19 18:00 141/68 06/25/19 18:00 74 26 127/62 (83) 100 06/25/19 17:30 69 26 120/64 (82) 100 06/25/19 17:00 20 127/62 Mechanical Ventilator 30 06/25/19 17:00 146/64 06/25/19 17:00 77 22 146/64 (91) 100 06/25/19 16:30 127/62 06/25/19 16:30 75 7 159/78 (105) 100 06/25/19 16:00 Mechanical Ventilator 06/25/19 16:00 104 06/25/19 16:00 30 06/25/19 16:00 18 136/66 Mechanical Ventilator 30 06/25/19 16:00 142/69 06/25/19 16:00 98.8 86 24 144/74 (97) 99 06/25/19 15:30 84 26 99 Mechanical Ventilator 30 88 28 30 06/25/19 15:00 17 136/66 Mechanical Ventilator 30 06/25/19 15:00 136/66 06/25/19 15:00 75 20 137/66 (89) 100 I&O Intake and Output 06/25/19 06/26/19 19:00 07:00 Intake Total 812.355 ml 335.88 ml Output Total 75 ml 60 ml Balance 737.355 ml 275.88 ml Free Water 200 ml IV Total 192.355 ml 230.88 ml Tube Feeding 420 ml 105 ml Output Urine Total 75 ml 60 ml # Bowel Movements 2 Dressing: other Wound: other Drains: other Cardiovascular: RSR Respiratory: decreased breath sounds Abdomen: soft, non-tender, present bowel sounds Extremities: no cyanosis Laboratory Tests Test 06/26/19 04:00 White Blood Count 13.6 K/UL (4.8-10.8) H Red Blood Count 2.63 M/UL (4.70-6.10) L Hemoglobin 7.9 G/DL (14.2-18.0) L Hematocrit 24.6 % (42.0-52.0) L Mean Corpuscular Volume 93 FL (80-99) Mean Corpuscular Hemoglobin 29.9 PG (27.0-31.0) Mean Corpuscular Hemoglobin Concent 32.0 G/DL (32.0-36.0) Red Cell Distribution Width 18.4 % (11.6-14.8) H Platelet Count 319 K/UL (150-450) Mean Platelet Volume 6.8 FL (6.5-10.1) Neutrophils (%) (Auto) % (45.0-75.0) Lymphocytes (%) (Auto) % (20.0-45.0) Monocytes (%) (Auto) % (1.0-10.0) Eosinophils (%) (Auto) % (0.0-3.0) Basophils (%) (Auto) % (0.0-2.0) Differential Total Cells Counted 100 Neutrophils % (Manual) 82 % (45-75) H Lymphocytes % (Manual) 9 % (20-45) L Monocytes % (Manual) 8 % (1-10) Eosinophils % (Manual) 1 % (0-3) Basophils % (Manual) 0 % (0-2) Band Neutrophils 0 % (0-8) Platelet Estimate Adequate Platelet Morphology Normal Polychromasia 1+ Hypochromasia 1+ Anisocytosis 1+ Sodium Level 136 MMOL/L (136-145) Potassium Level 3.2 MMOL/L (3.5-5.1) L Chloride Level 96 MMOL/L (98-107) L Carbon Dioxide Level 25 MMOL/L (21-32) Blood Urea Nitrogen 57 mg/dL (7-18) H Creatinine 6.8 MG/DL (0.55-1.30) H Estimat Glomerular Filtration Rate 8.2 mL/min (>60) Glucose Level 135 MG/DL (74-106) H Calcium Level 8.5 MG/DL (8.5-10.1) Phosphorus Level 3.7 MG/DL (2.5-4.9) Magnesium Level 2.2 MG/DL (1.8-2.4) Total Bilirubin 0.3 MG/DL (0.2-1.0) Aspartate Amino Transf (AST/SGOT) 20 U/L (15-37) Alanine Aminotransferase (ALT/SGPT) 8 U/L (12-78) L Alkaline Phosphatase 79 U/L (46-116) Total Protein 7.1 G/DL (6.4-8.2) Albumin 1.5 G/DL (3.4-5.0) L Globulin 5.6 g/dL Albumin/Globulin Ratio 0.3 (1.0-2.7) L Plan Problems: (1) Suspected COVID-19 virus infection (2) HTN (hypertension) (3) CASSANDRA (acute kidney injury) Assessment & Plan: Needs urgent HD needs access patient okay and consented see note will follow with recs new line placed discussed with team and nephrology HD line functional when checked has TPA now please use appropriately Cathflo used again this flow during dialysis on 430 was low. Will monitor may need line change / plan for HD as per renal may need to take fluid off with HD edema anasarca dressings saturated and changed will monitor (4) Anemia in chronic kidney disease (CKD) (5) Anemia (6) Renal failure (7) Suspected COVID-19 virus infection Assessment & Plan: Pt deconditioned and despite all skin preventions Pt noted to have developed several pressure injuries. . Stable dry eschar noted to clefts of R and L ears. No erythema noted . DTPI noted to L trochanter. Base of injury is maroon in colour with marginal erythema along borders. Partially opened DTPI Sacrum, R and L Buttocks. Base of wound is maroon with two small open wounds L sacrum and L buttocks. Pt has an APM/MOMO Mattress overlay and is being positioned with pillows as per tolerance and within protocols. Tx.Plan: Apply Cavilon Skin Barrier to both ears Daily and prn. Apply Moisture Barrier Paste to Sacrum,R and L Buttocks. Cover with Optifoam drsgs. Change every 3 days and PRN. Apply Cavilon Skin Barrier to R and L trochanter. Cover each site with Optifoam drsgs.Change every 7 days and PRN. Apply Cavilon Skin Barrier to both heels. Cover each heel with Optifoam drsg. Change every 7 days and prn. Off-load heels with pillow. Reposition at least every 2hours or as tolerated. APM/MOMO Mattress overlay. (8) COVID-19 Assessment & Plan: COVID + c diff negative febrile leukocytosis renal insufficiency see above cont resp care Rx as per ID worsening on vent support now cxr noted on pressors prognosis guarded repeat covid ++ weaning vent and pressors off slowly showing improvement Yaniv Mast June 26, 2019 14:42
--- NOTE | 2019-06-26 20:24 | General Progress Note ---
Assessment/Plan Problem List: (1) Anemia ICD Codes: D64.9 - Anemia, unspecified SNOMED: 309118591 (2) Renal failure ICD Codes: N19 - Unspecified kidney failure SNOMED: 74010443 (3) Suspected COVID-19 virus infection ICD Codes: R68.89 - Other general symptoms and signs SNOMED: 314058787 (4) HTN (hypertension) ICD Codes: I10 - Essential (primary) hypertension SNOMED: 09305288 (5) CASSANDRA (acute kidney injury) ICD Codes: N17.9 - Acute kidney failure, unspecified SNOMED: 0353274, 62665978 (6) Anemia in chronic kidney disease (CKD) ICD Codes: N18.9 - Chronic kidney disease, unspecified; D63.1 - Anemia in chronic kidney disease SNOMED: 753587063 (7) Suspected COVID-19 virus infection ICD Codes: R68.89 - Other general symptoms and signs SNOMED: 998908901 Status: unchanged Assessment/Plan: low k .replacement per renal dr anemia lyte abnormality afebrile no change renal failure pna covid positve resp failure sepsis hyponatrmia resolved supportive therapy leukoytosis poor prognosis htn Subjective ROS Limited/Unobtainable: Yes Allergies: Coded Allergies: No Known Allergies (Unverified , 05/28/19) Objective Last 24 Hour Vital Signs Date Time Temp Pulse Resp B/P (MAP) Pulse Ox O2 Delivery O2 Flow Rate FiO2 06/26/19 20:00 99.4 86 26 113/59 (77) 99 06/26/19 20:00 Mechanical Ventilator 06/26/19 20:00 96 06/26/19 20:00 30 06/26/19 19:30 83 27 100 Mechanical Ventilator 30 85 28 30 06/26/19 19:00 103 26 134/67 (89) 100 06/26/19 19:00 26 134/67 Mechanical Ventilator 30 06/26/19 18:00 82 21 103/60 (74) 100 06/26/19 18:00 21 103/60 Mechanical Ventilator 30 06/26/19 17:00 91 23 104/62 (76) 100 06/26/19 17:00 23 104/62 Mechanical Ventilator 30 06/26/19 16:30 95 26 160/81 (107) 99 06/26/19 16:00 23 137/65 Mechanical Ventilator 30 06/26/19 16:00 105 23 137/65 (89) 100 06/26/19 16:00 93 06/26/19 16:00 Mechanical Ventilator 06/26/19 16:00 30 06/26/19 15:20 89 26 100 Mechanical Ventilator 30 88 26 30 06/26/19 15:00 26 109/72 Mechanical Ventilator 30 06/26/19 15:00 26 109/72 Mechanical Ventilator 30 06/26/19 15:00 92 26 109/72 (84) 99 06/26/19 14:15 104 27 140/69 (92) 100 06/26/19 14:00 28 125/77 Mechanical Ventilator 30 06/26/19 14:00 109 28 125/77 (93) 100 06/26/19 13:30 39 138/81 Mechanical Ventilator 30 06/26/19 13:00 135/84 06/26/19 13:00 127 39 135/84 (101) 100 06/26/19 12:30 135 32 112/74 (87) 99 06/26/19 12:15 137 32 118/71 (87) 99 06/26/19 12:00 127 06/26/19 12:00 98.9 136 33 96/76 (83) 97 06/26/19 12:00 96/76 06/26/19 12:00 30 06/26/19 12:00 Mechanical Ventilator 06/26/19 11:00 125 27 117/98 (104) 99 06/26/19 11:00 117/98 06/26/19 10:48 120 30 99 Mechanical Ventilator 30 115 29 30 06/26/19 10:30 104 27 109/68 (82) 100 06/26/19 10:00 148/67 06/26/19 10:00 104 27 148/67 (94) 99 06/26/19 09:30 98 27 131/61 (84) 100 06/26/19 09:00 98.6 97 27 130/64 (86) 98 06/26/19 09:00 130/64 06/26/19 08:30 107 28 141/66 (91) 99 06/26/19 08:02 98 06/26/19 08:00 Mechanical Ventilator 06/26/19 08:00 30 06/26/19 08:00 106 26 135/67 (89) 99 06/26/19 08:00 120 06/26/19 08:00 135/67 06/26/19 07:35 30 06/26/19 07:31 118 32 98 Mechanical Ventilator 30 112 28 30 06/26/19 07:00 102 26 122/67 (85) 99 06/26/19 07:00 122/67 06/26/19 06:30 98 25 137/63 (87) 99 06/26/19 06:30 98 25 06/26/19 06:00 100 28 138/65 (89) 99 06/26/19 06:00 132/75 06/26/19 05:30 104 24 157/82 (107) 99 06/26/19 05:00 99.8 107 28 156/72 (100) 96 06/26/19 05:00 28 156/72 Mechanical Ventilator 30 06/26/19 05:00 156/72 06/26/19 04:30 75 27 118/51 (73) 99 06/26/19 04:00 Mechanical Ventilator 06/26/19 04:00 75 06/26/19 04:00 19 113/52 Mechanical Ventilator 30 06/26/19 04:00 113/52 06/26/19 04:00 75 19 113/52 (72) 99 06/26/19 04:00 30 06/26/19 03:30 75 26 124/56 (78) 99 06/26/19 03:07 73 26 100 Mechanical Ventilator 30 75 26 30 06/26/19 03:00 70 26 141/68 (92) 99 06/26/19 03:00 26 141/68 Mechanical Ventilator 30 06/26/19 03:00 141/68 06/26/19 02:30 70 26 119/63 (81) 100 06/26/19 02:00 24 120/56 Mechanical Ventilator 30 06/26/19 02:00 120/56 06/26/19 02:00 71 24 120/56 (77) 99 06/26/19 01:30 70 23 119/54 (75) 100 06/26/19 01:00 26 117/56 Mechanical Ventilator 30 06/26/19 01:00 117/56 06/26/19 01:00 75 24 117/56 (76) 100 06/26/19 00:30 70 25 118/57 (77) 100 06/26/19 00:00 98.8 73 25 126/56 (79) 100 06/26/19 00:00 30 126/56 Mechanical Ventilator 30 06/26/19 00:00 126/56 06/26/19 00:00 Mechanical Ventilator 06/25/19 23:30 67 26 136/70 (92) 100 06/25/19 23:00 70 26 100 Mechanical Ventilator 30 72 26 30 06/25/19 23:00 26 127/70 Mechanical Ventilator 30 06/25/19 23:00 127/70 06/25/19 23:00 68 28 127/70 (89) 100 06/25/19 22:47 24 129/61 Mechanical Ventilator 30 06/25/19 22:41 26 129/61 Mechanical Ventilator 30 06/25/19 22:30 68 27 129/61 (83) 100 06/25/19 22:00 66 26 123/61 (81) 100 06/25/19 22:00 28 123/61 Mechanical Ventilator 30 06/25/19 22:00 123/61 06/25/19 21:30 84 17 121/61 (81) 100 06/25/19 21:00 69 30 115/58 (77) 100 06/25/19 21:00 28 118/58 Mechanical Ventilator 30 06/25/19 21:00 118/58 06/25/19 20:30 88 24 138/66 (90) 99 Intake and Output 06/25/19 06/26/19 19:00 07:00 Intake Total 812.355 ml 335.88 ml Output Total 75 ml 60 ml Balance 737.355 ml 275.88 ml Free Water 200 ml IV Total 192.355 ml 230.88 ml Tube Feeding 420 ml 105 ml Output Urine Total 75 ml 60 ml # Bowel Movements 2 Laboratory Tests 06/26/19 04:00: White Blood Count 13.6H, Red Blood Count 2.63L, Hemoglobin 7.9L, Hematocrit 24.6L, Mean Corpuscular Volume 93, Mean Corpuscular Hemoglobin 29.9, Mean Corpuscular Hemoglobin Concent 32.0, Red Cell Distribution Width 18.4H, Platelet Count 319, Mean Platelet Volume 6.8, Neutrophils (%) (Auto) , Lymphocytes (%) (Auto) , Monocytes (%) (Auto) , Eosinophils (%) (Auto) , Basophils (%) (Auto) , Differential Total Cells Counted 100, Neutrophils % ( Manual) 82H, Lymphocytes % (Manual) 9L, Monocytes % (Manual) 8, Eosinophils % ( Manual) 1, Basophils % (Manual) 0, Band Neutrophils 0, Platelet Estimate Adequate, Platelet Morphology Normal, Polychromasia 1+, Hypochromasia 1+, Anisocytosis 1+, Sodium Level 136, Potassium Level 3.2L, Chloride Level 96L, Carbon Dioxide Level 25, Blood Urea Nitrogen 57H, Creatinine 6.8H, Estimat Glomerular Filtration Rate 8.2, Glucose Level 135H, Calcium Level 8.5, Phosphorus Level 3.7, Magnesium Level 2.2, Total Bilirubin 0.3, Aspartate Amino Transf (AST/SGOT) 20, Alanine Aminotransferase (ALT/SGPT) 8L, Alkaline Phosphatase 79, Total Protein 7.1, Albumin 1.5L, Globulin 5.6, Albumin/Globulin Ratio 0.3L Height (Feet): 6 Height (Inches): 1.00 Weight (Pounds): 237 Karishma Mulligan MD June 26, 2019 20:24
[2019-06-26] MEDS: Dyna-Hex 2% Top Sol 2oz TOPIC SCH (21:32)
[2019-06-26] MEDS: Acetaminophen 650mg/20.3ml NG PRN (21:33)
[2019-06-26] MEDS: NOREPINEPHRINE BITARTRATE IV SCH ×3 (21:34)
[2019-06-26] MEDS: fentaNYL 2500mcg/NS 250ml IV SCH (21:34)
[2019-06-26] MEDS: D5W IV SCH ×3 (21:34)
[2019-06-27] VITALS (32 sets, daily range): BP systolic 98–162; BP diastolic 52–81
--- NOTE | 2019-06-27 00:27 | Pulmonolgy Critical Care Note ---
Critical Care - Asmt/Plan Assessment/Plan: Pulmonary CCM Progress Note HPI: Patient is a 68 year old man, [facility] resident, admitted c/o shortness of breath, cough, noted to have Covid 19 Pneumonia, Respiratory Failure S/p intubation, CXR stable ETT adjusted Septic Shock, pressors off Preserved EF FIO2 40%-50%, P5, adequate O2 sats, remains on ACVC, tolerated weaning, remains sedated HD tolerated Hyponatremia stable Anemia stable Seen earlier Seen on 06/26/2019 ID following On HD per Renal Past Medical History: COPD, CKD, Hypertension, Anemia Hypotension requiring pressors, in ICU Persistently elevated WCC Allergies: No Known Allergies Improving Pulmonary Status on HD Physical Exam Vital Signs Noted Sedated on ventilator WDWN, no distress HEENT: NCAT,moist mm Chest: Occasional rhonchi Heart: HS1, HS2, RRR Abdomen: SNTND, no masses Extremities: Well perfused, 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 signs, no seizures, sedated Impression: COVID-19 virus infection Pneumonia Respiratory failure on ventilator Volume overload improving - on HD Hypotension on pressors Cardiomegaly Lymphopenia Elevated AST COPD Chronic Kidney Disease - HD H/o Hypertension Worsening anemia Plan: Antibiotics per ID HD Pressors PRN ACVC - wean as tolerated once pressors reduced/off 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 Monitor cultures/viral studies PPX Hemodialysis per Renal Psychiatry following [facility] - [facility] requested for when available, [facility] - not available as yet Laboratory Tests Noted: CXR: Hypoventilatory exam, interstitial changes, cardiomegaly, improving infiltrates Subjective ROS Limited/Unobtainable: No Constitutional: Denies: fever Respiratory: Reports: dry cough, shortness of breath Gastrointestinal/Abdominal: Reports: diarrhea, other - colace was stopped Psychiatric: Reports: other - refuses labs Allergies: Coded Allergies: No Known Allergies (Unverified , 05/28/19) All Systems: reviewed and negative except above Labs noted Critical Care - Objective Last 24 Hour Vital Signs Date Time Temp Pulse Resp B/P (MAP) Pulse Ox O2 Delivery O2 Flow Rate FiO2 06/26/19 23:00 87 10 134/76 (95) 99 06/26/19 23:00 26 134/76 Mechanical Ventilator 30 06/26/19 22:59 85 26 100 Mechanical Ventilator 30 86 26 30 06/26/19 22:00 116 35 160/76 (104) 99 06/26/19 22:00 26 160/76 Mechanical Ventilator 30 06/26/19 21:34 26 163/85 30 06/26/19 21:00 26 139/77 Mechanical Ventilator 30 06/26/19 21:00 88 26 139/77 (97) 99 06/26/19 20:00 99.4 86 26 113/59 (77) 99 06/26/19 20:00 Mechanical Ventilator 06/26/19 20:00 96 06/26/19 20:00 26 125/80 Mechanical Ventilator 30 06/26/19 20:00 30 06/26/19 19:30 83 27 100 Mechanical Ventilator 30 85 28 30 06/26/19 19:00 103 26 134/67 (89) 100 06/26/19 19:00 26 134/67 Mechanical Ventilator 30 06/26/19 18:00 82 21 103/60 (74) 100 06/26/19 18:00 21 103/60 Mechanical Ventilator 30 06/26/19 17:00 91 23 104/62 (76) 100 06/26/19 17:00 23 104/62 Mechanical Ventilator 30 06/26/19 16:30 95 26 160/81 (107) 99 06/26/19 16:00 23 137/65 Mechanical Ventilator 30 06/26/19 16:00 105 23 137/65 (89) 100 06/26/19 16:00 93 06/26/19 16:00 Mechanical Ventilator 06/26/19 16:00 30 06/26/19 15:20 89 26 100 Mechanical Ventilator 30 88 26 30 06/26/19 15:00 26 109/72 Mechanical Ventilator 30 06/26/19 15:00 26 109/72 Mechanical Ventilator 30 06/26/19 15:00 92 26 109/72 (84) 99 06/26/19 14:15 104 27 140/69 (92) 100 06/26/19 14:00 28 125/77 Mechanical Ventilator 30 06/26/19 14:00 109 28 125/77 (93) 100 06/26/19 13:30 39 138/81 Mechanical Ventilator 30 06/26/19 13:00 135/84 06/26/19 13:00 127 39 135/84 (101) 100 06/26/19 12:30 135 32 112/74 (87) 99 06/26/19 12:15 137 32 118/71 (87) 99 06/26/19 12:00 127 06/26/19 12:00 98.9 136 33 96/76 (83) 97 06/26/19 12:00 96/76 06/26/19 12:00 30 06/26/19 12:00 Mechanical Ventilator 06/26/19 11:00 125 27 117/98 (104) 99 06/26/19 11:00 117/98 06/26/19 10:48 120 30 99 Mechanical Ventilator 30 115 29 30 06/26/19 10:30 104 27 109/68 (82) 100 06/26/19 10:00 148/67 06/26/19 10:00 104 27 148/67 (94) 99 06/26/19 09:30 98 27 131/61 (84) 100 06/26/19 09:00 98.6 97 27 130/64 (86) 98 06/26/19 09:00 130/64 06/26/19 08:30 107 28 141/66 (91) 99 06/26/19 08:02 98 06/26/19 08:00 Mechanical Ventilator 06/26/19 08:00 30 06/26/19 08:00 106 26 135/67 (89) 99 06/26/19 08:00 120 06/26/19 08:00 135/67 06/26/19 07:35 30 06/26/19 07:31 118 32 98 Mechanical Ventilator 30 112 28 30 06/26/19 07:00 102 26 122/67 (85) 99 06/26/19 07:00 122/67 06/26/19 06:30 98 25 137/63 (87) 99 06/26/19 06:30 98 25 06/26/19 06:00 100 28 138/65 (89) 99 06/26/19 06:00 132/75 06/26/19 05:30 104 24 157/82 (107) 99 06/26/19 05:00 99.8 107 28 156/72 (100) 96 06/26/19 05:00 28 156/72 Mechanical Ventilator 30 06/26/19 05:00 156/72 06/26/19 04:30 75 27 118/51 (73) 99 06/26/19 04:00 Mechanical Ventilator 06/26/19 04:00 75 06/26/19 04:00 19 113/52 Mechanical Ventilator 30 06/26/19 04:00 113/52 06/26/19 04:00 75 19 113/52 (72) 99 06/26/19 04:00 30 06/26/19 03:30 75 26 124/56 (78) 99 06/26/19 03:07 73 26 100 Mechanical Ventilator 30 75 26 30 06/26/19 03:00 70 26 141/68 (92) 99 06/26/19 03:00 26 141/68 Mechanical Ventilator 30 06/26/19 03:00 141/68 06/26/19 02:30 70 26 119/63 (81) 100 06/26/19 02:00 24 120/56 Mechanical Ventilator 30 06/26/19 02:00 120/56 06/26/19 02:00 71 24 120/56 (77) 99 06/26/19 01:30 70 23 119/54 (75) 100 06/26/19 01:00 26 117/56 Mechanical Ventilator 30 06/26/19 01:00 117/56 06/26/19 01:00 75 24 117/56 (76) 100 06/26/19 00:30 70 25 118/57 (77) 100 Micro: Microbiology Date/Time Source Procedure Growth Status 06/24/19 16:40 Nasopharynx Coronavirus COVID-19 PCR ([facility]) - Final Complete Accucheck: 233 Critical Care - Subjective ROS Limited/Unobtainable: No FI02: 30 Vent Support Breath Rate: 26 Vent Support Mode: AC Vent Tidal Volume: 500 Sputum Amount: Small PEEP: 5.0 PIP: 25 Tube Feeding Amount: 35 I&O: Intake and Output 06/26/19 06/27/19 19:00 07:00 Intake Total 502.94 ml 185 ml Output Total 3300 ml 10 ml Balance -2797.06 ml 175 ml IV Total 122.94 ml 45 ml Tube Feeding 280 ml 140 ml Other 100 ml Output Urine Total 300 ml 10 ml Hemodialysis UF 3000 ml # Bowel Movements 1 ET-Tube: 7.5 ET Position: 26 Arturo Mckeon MD June 27, 2019 00:26
[2019-06-27] MEDS: Albuterol 90mcg Inhaler 8gm INH SCH ×6 (03:23→23:40)
[2019-06-27] MEDS: Acetaminophen 650mg/20.3ml NG PRN (04:21)
[2019-06-27] MEDS: Renvela 800mg Pkt NG SCH ×3 (04:21→21:35)
[2019-06-27] MEDS: NovoLOG Insulin Flexpen SUBQ SCH ×3 (05:07→17:18)
[2019-06-27 06:21] LABS: ALANINE AMINOTRANSFERASE 26 U/L (12-78); ALBUMIN 1.8 G/DL (3.4-5.0); ALBUMIN/GLOBULIN RATIO 0.4 (1.0-2.7); ALKALINE PHOSPHATASE 169 U/L (46-116); ANION GAP 9 mmol/L (5-15); ASPARTATE AMINO TRANSFERASE 32 U/L (15-37); BILIRUBIN,TOTAL 0.4 MG/DL (0.2-1.0); BLOOD UREA NITROGEN 54 mg/dL (7-18); CALCIUM 7.4 MG/DL (8.5-10.1); CARBON DIOXIDE 25 MMOL/L (21-32); CHLORIDE 106 MMOL/L (98-107); CREATININE 2.7 MG/DL (0.55-1.30); PHOSPHORUS 4.5 MG/DL (2.5-4.9); POTASSIUM 4.5 MMOL/L (3.5-5.1); SODIUM 140 MMOL/L (136-145)
[2019-06-27 07:14] LABS: HEMATOCRIT 23.5 % (42.0-52.0); MEAN CORPUSCULAR VOLUME 92 FL (80-99); PLATELET COUNT 326 K/UL (150-450); RED BLOOD COUNT 2.55 M/UL (4.70-6.10); WHITE BLOOD COUNT 13.3 K/UL (4.8-10.8)
--- NOTE | 2019-06-27 07:26 | Hematology/Onc Progress Note ---
Assessment/Plan Assessment/Plan Assessment and Recs: # Anemia of chronic disease, likely related ot underlying kidney disease has COIVD19++ --> hgb trend 9-->8-->7.3-->7.9-->6.8->9.5-->10->8.3-->7.7-->7.1-->8.9->8.8->7.7 -->8.1 --> transfuse as needed, hgb goal >7 --> no evidence of hemolysis --> peripheral smear has been reviewed --> epogen started three x a week ==>> transfuse w 2 units 06/08, 06/15, # Leukocytosis likely related to suspected COVID-19 virus infection --> completed plaquenil --> trend smear as needed --> initially 4-->11-->14.5-->21-->26-->21->24--.28-->23-->19-->16.2-->21--> 11.2 --> pulm is aware --> on abx cefepime/vanc->zosyn/vanc-->off --> pressors as needed # Thrombocytopenia/Lymphopenia --> likely related to covid19 --> plt 129k-->186k-->251--285 # Respiratory failure with covid19+ --> s/p vent # Possible Pneumonia --> abx given --> on zosyn and vanc # Cardiomegaly # Transaminitis with Elevated AST # COPD # Chronic Kidney Disease --> per renal hd # Hypertension # Dvt ppx lovenox Appreciate consultation and dw Rn Subjective Allergies: Coded Allergies: No Known Allergies (Unverified , 05/28/19) Subjective 06/01 nv, extremely agitated, not allowing labs draws, no night sweats, cbc ordered 06/02 confused, restraints, on abx and plaquenil, hgb 7.9, nrb 15 L 06/03 is with nonrebreather, but not compliant, remains confused 06/05 no bleeding, labs noted, no major bleeding, otherwise comfortable 06/06 labs reviewed, no bleeding, meds noted, no night sweats, on levo and nonrebreather 06/07 labs noted, no bleeding, meds reviewed, no bleeding, wbc higher 06/08 to get 2 units prbc, no night sweats, meds reviewed 06/09 is on cefepime and vanc, labs noted, ernesto Rn, no bleeding 06/10 no major changes, labs reviewed, wbc 28k, on abx, cefepime 06/12 remains in icu, labs noted, no night sweats or bleeding 06/13 sluggish pupils, remains agitated, per psych, no bleding, on vent, wbc sitll high 06/14 still confused, remains on vent, with ng, running nepro, on pressors 06/15 icu, febrile, non verbal, hgb 7.1, blood pending, completed plaq 06/16 remains in the icu, nonverbal, plan for hd tomorrow, ernesto rn 06/17 in icu, on pressor, nonverbal, on abx, no bleeding 06/19 no bleeding, nonverbal in icu, hgb is 7.7 06/20 on zosyn, tube feeds, vent, labs noted, in icu, nv 06/21 gettng hd as per renal, in icu, nv, no bleeding, tfs 06/22 icu, cxr with slight improvement, cooling blanket, weaning today 06/23 wewaning, in icu, on vent, abx, and pressors as needed, labs noted 06/24 failed weaning, off abx, completed plaquenil, hgb 8.1 06/26 icu, weaning for this am, afebrile, hgb 8 Objective Objective Current Medications Medications (Trade) Dose Ordered Sig/Anthony Route PRN Reason Start Time Stop Time Status Last Admin Dose Admin Acetaminophen (Tylenol) 650 mg Q4H PRN NG Temp >100.5 06/13/19 11:00 07/13/19 10:59 06/27/19 04:21 Albuterol Sulfate (Proventil MDI) 2 puff Q4HRT INH 06/06/19 23:00 08/30/19 18:59 06/27/19 06:59 Chlorhexidine Gluconate (Michelle-Hex 2%) 1 applic DAILY@1999 TOPIC 06/07/19 20:00 09/05/19 19:59 06/26/19 21:32 Dextrose (Dextrose 50%) 25 ml Q30M PRN IV Hypoglycemia 06/20/19 19:30 09/18/19 19:29 Dextrose (Dextrose 50%) 50 ml Q30M PRN IV Hypoglycemia 06/20/19 19:30 09/18/19 19:29 Docusate Sodium (Colace) 100 mg THREE TIMES A DAY NG 06/07/19 13:00 07/07/19 12:59 06/26/19 17:19 Dopamine HCl/ Dextrose 250 ml @ 0 mls/hr Q24H PRN IV For hypotension 06/13/19 08:15 09/11/19 08:14 Enoxaparin Sodium (Lovenox) 30 mg DAILY SUBQ 06/07/19 09:00 08/27/19 08:59 06/26/19 08:48 Epoetin Aftab (Epoetin Aftab(ESRD on dialysis)) 10,000 unit SUBQ 06/07/19 21:00 08/31/19 20:59 06/25/19 21:23 Fentanyl Citrate 250 ml @ 0 mls/hr Q24H IV 06/24/19 06:00 09/22/19 05:59 06/26/19 21:34 Hydralazine HCl (Apresoline) 10 mg Q4H PRN IV Blood pressure over 160 systol 06/07/19 10:15 09/05/19 10:14 Insulin Aspart (NovoLOG) EVERY 6 HOURS SUBQ 06/21/19 00:00 09/19/19 00:00 06/27/19 05:07 Metoclopramide HCl (Reglan) 5 mg Q8H PRN IVP Nausea & Vomiting 06/18/19 12:00 07/18/19 11:59 06/19/19 00:50 Midodrine (Pro-Amatine) 10 mg THREE TIMES A DAY NG 06/09/19 13:00 09/07/19 12:59 06/26/19 17:19 Norepinephrine Bitartrate 8 mg/ Dextrose 283 ml @ 0 mls/hr Q24H IV 06/23/19 23:00 07/23/19 22:59 06/25/19 14:38 Pantoprazole (Protonix) 40 mg DAILY IVP 06/19/19 09:00 07/19/19 08:59 06/26/19 08:47 Sevelamer Carbonate (Renvela) 1,600 mg Q8HR NG 06/25/19 22:00 09/05/19 12:59 06/27/19 04:21 Last 24 Hour Vital Signs Date Time Temp Pulse Resp B/P (MAP) Pulse Ox O2 Delivery O2 Flow Rate FiO2 06/27/19 07:10 100 06/27/19 07:06 84 25 100 Mechanical Ventilator 30 85 25 30 30 06/27/19 07:03 82 35 151/66 (94) 100 06/27/19 07:00 90 20 154/77 (102) 100 06/27/19 06:30 98 25 06/27/19 06:00 98.6 87 26 130/61 (84) 100 06/27/19 05:30 80 26 118/63 (81) 100 06/27/19 05:08 99.6 06/27/19 05:00 94 26 150/70 (96) 100 06/27/19 04:30 91 26 148/68 (94) 99 06/27/19 04:00 Mechanical Ventilator 06/27/19 04:00 87 06/27/19 04:00 30 06/27/19 04:00 100.0 72 26 107/57 (74) 100 06/27/19 03:30 91 26 144/59 (87) 99 06/27/19 03:23 73 26 100 Mechanical Ventilator 30 77 26 30 06/27/19 03:00 26 120/85 Mechanical Ventilator 30 06/27/19 03:00 69 26 124/57 (79) 100 06/27/19 02:30 67 26 107/54 (71) 100 06/27/19 02:00 70 26 105/52 (69) 100 06/27/19 02:00 26 105/52 Mechanical Ventilator 30 06/27/19 01:00 26 103/52 Mechanical Ventilator 30 06/27/19 01:00 73 26 99/53 (68) 100 06/27/19 00:30 77 26 110/60 (77) 100 06/27/19 00:00 Mechanical Ventilator 06/27/19 00:00 92 06/27/19 00:00 30 06/27/19 00:00 26 123/65 Mechanical Ventilator 30 06/27/19 00:00 76 26 98/55 (69) 100 06/26/19 23:30 86 26 98/53 (68) 100 06/26/19 23:00 87 10 134/76 (95) 99 06/26/19 23:00 26 134/76 Mechanical Ventilator 30 06/26/19 22:59 85 26 100 Mechanical Ventilator 30 86 26 30 06/26/19 22:00 116 35 160/76 (104) 99 06/26/19 22:00 26 160/76 Mechanical Ventilator 30 06/26/19 21:34 26 163/85 30 06/26/19 21:00 26 139/77 Mechanical Ventilator 30 06/26/19 21:00 88 26 139/77 (97) 99 06/26/19 20:00 99.4 86 26 113/59 (77) 99 06/26/19 20:00 Mechanical Ventilator 06/26/19 20:00 96 06/26/19 20:00 26 125/80 Mechanical Ventilator 30 06/26/19 20:00 30 06/26/19 19:30 83 27 100 Mechanical Ventilator 30 85 28 30 06/26/19 19:00 103 26 134/67 (89) 100 06/26/19 19:00 26 134/67 Mechanical Ventilator 30 06/26/19 18:00 82 21 103/60 (74) 100 06/26/19 18:00 21 103/60 Mechanical Ventilator 30 06/26/19 17:00 91 23 104/62 (76) 100 06/26/19 17:00 23 104/62 Mechanical Ventilator 30 06/26/19 16:30 95 26 160/81 (107) 99 06/26/19 16:00 23 137/65 Mechanical Ventilator 30 06/26/19 16:00 105 23 137/65 (89) 100 06/26/19 16:00 93 06/26/19 16:00 Mechanical Ventilator 06/26/19 16:00 30 06/26/19 15:20 89 26 100 Mechanical Ventilator 30 88 26 30 06/26/19 15:00 26 109/72 Mechanical Ventilator 30 06/26/19 15:00 26 109/72 Mechanical Ventilator 30 06/26/19 15:00 92 26 109/72 (84) 99 06/26/19 14:15 104 27 140/69 (92) 100 06/26/19 14:00 28 125/77 Mechanical Ventilator 30 06/26/19 14:00 109 28 125/77 (93) 100 06/26/19 13:30 39 138/81 Mechanical Ventilator 30 06/26/19 13:00 135/84 06/26/19 13:00 127 39 135/84 (101) 100 06/26/19 12:30 135 32 112/74 (87) 99 06/26/19 12:15 137 32 118/71 (87) 99 06/26/19 12:00 127 06/26/19 12:00 98.9 136 33 96/76 (83) 97 06/26/19 12:00 96/76 06/26/19 12:00 30 06/26/19 12:00 Mechanical Ventilator 06/26/19 11:00 125 27 117/98 (104) 99 06/26/19 11:00 117/98 06/26/19 10:48 120 30 99 Mechanical Ventilator 30 115 29 30 06/26/19 10:30 104 27 109/68 (82) 100 06/26/19 10:00 148/67 06/26/19 10:00 104 27 148/67 (94) 99 06/26/19 09:30 98 27 131/61 (84) 100 06/26/19 09:00 98.6 97 27 130/64 (86) 98 06/26/19 09:00 130/64 06/26/19 08:30 107 28 141/66 (91) 99 06/26/19 08:02 98 06/26/19 08:00 Mechanical Ventilator 06/26/19 08:00 30 06/26/19 08:00 106 26 135/67 (89) 99 06/26/19 08:00 120 06/26/19 08:00 135/67 06/26/19 07:35 30 06/26/19 07:31 118 32 98 Mechanical Ventilator 30 112 28 30 06/26/19 07:00 102 26 122/67 (85) 99 06/26/19 07:00 122/67 06/26/19 06:30 98 25 137/63 (87) 99 06/26/19 06:30 98 25 06/26/19 06:00 100 28 138/65 (89) 99 06/26/19 06:00 132/75 06/26/19 05:30 104 24 157/82 (107) 99 06/26/19 05:00 99.8 107 28 156/72 (100) 96 06/26/19 05:00 28 156/72 Mechanical Ventilator 30 06/26/19 05:00 156/72 06/26/19 04:30 75 27 118/51 (73) 99 06/26/19 04:00 Mechanical Ventilator 06/26/19 04:00 75 06/26/19 04:00 19 113/52 Mechanical Ventilator 30 06/26/19 04:00 113/52 06/26/19 04:00 75 19 113/52 (72) 99 06/26/19 04:00 30 06/26/19 03:30 75 26 124/56 (78) 99 06/26/19 03:07 73 26 100 Mechanical Ventilator 30 75 26 30 06/26/19 03:00 70 26 141/68 (92) 99 06/26/19 03:00 26 141/68 Mechanical Ventilator 30 06/26/19 03:00 141/68 06/26/19 02:30 70 26 119/63 (81) 100 06/26/19 02:00 24 120/56 Mechanical Ventilator 30 06/26/19 02:00 120/56 06/26/19 02:00 71 24 120/56 (77) 99 06/26/19 01:30 70 23 119/54 (75) 100 06/26/19 01:00 26 117/56 Mechanical Ventilator 30 06/26/19 01:00 117/56 06/26/19 01:00 75 24 117/56 (76) 100 06/26/19 00:30 70 25 118/57 (77) 100 06/26/19 00:00 98.8 73 25 126/56 (79) 100 06/26/19 00:00 30 126/56 Mechanical Ventilator 30 06/26/19 00:00 126/56 06/26/19 00:00 Mechanical Ventilator 06/25/19 23:30 67 26 136/70 (92) 100 06/25/19 23:00 70 26 100 Mechanical Ventilator 30 72 26 30 06/25/19 23:00 26 127/70 Mechanical Ventilator 30 06/25/19 23:00 127/70 06/25/19 23:00 68 28 127/70 (89) 100 06/25/19 22:47 24 129/61 Mechanical Ventilator 30 06/25/19 22:41 26 129/61 Mechanical Ventilator 30 06/25/19 22:30 68 27 129/61 (83) 100 06/25/19 22:00 66 26 123/61 (81) 100 06/25/19 22:00 28 123/61 Mechanical Ventilator 30 06/25/19 22:00 123/61 06/25/19 21:30 84 17 121/61 (81) 100 06/25/19 21:00 69 30 115/58 (77) 100 06/25/19 21:00 28 118/58 Mechanical Ventilator 30 06/25/19 21:00 118/58 06/25/19 20:30 88 24 138/66 (90) 99 06/25/19 20:20 172/89 06/25/19 20:00 97.6 84 25 167/73 (104) 100 06/25/19 20:00 30 06/25/19 20:00 Mechanical Ventilator 06/25/19 20:00 28 167/73 Mechanical Ventilator 30 06/25/19 20:00 167/73 06/25/19 20:00 84 06/25/19 19:30 90 28 154/64 (94) 100 06/25/19 19:05 87 26 100 Mechanical Ventilator 30 89 29 30 06/25/19 19:00 28 152/62 Mechanical Ventilator 30 06/25/19 19:00 152/62 06/25/19 19:00 93 25 152/62 (92) 99 06/25/19 18:00 26 141/68 Mechanical Ventilator 30 06/25/19 18:00 141/68 06/25/19 18:00 74 26 127/62 (83) 100 06/25/19 17:30 69 26 120/64 (82) 100 06/25/19 17:00 20 127/62 Mechanical Ventilator 30 06/25/19 17:00 146/64 06/25/19 17:00 77 22 146/64 (91) 100 06/25/19 16:30 127/62 06/25/19 16:30 75 7 159/78 (105) 100 06/25/19 16:00 Mechanical Ventilator 06/25/19 16:00 104 06/25/19 16:00 30 06/25/19 16:00 18 136/66 Mechanical Ventilator 30 06/25/19 16:00 142/69 06/25/19 16:00 98.8 86 24 144/74 (97) 99 06/25/19 15:30 84 26 99 Mechanical Ventilator 30 88 28 30 06/25/19 15:00 17 136/66 Mechanical Ventilator 30 06/25/19 15:00 136/66 06/25/19 15:00 75 20 137/66 (89) 100 06/25/19 14:38 82/49 06/25/19 14:30 85 20 82/49 (60) 98 06/25/19 14:00 119 16 117/58 (77) 99 06/25/19 14:00 17 109/57 Mechanical Ventilator 30 06/25/19 13:30 109 27 98/50 (66) 98 06/25/19 13:00 20 99/55 Mechanical Ventilator 30 06/25/19 13:00 119 14 104/79 (87) 98 06/25/19 12:30 126 25 139/74 (95) 97 06/25/19 12:02 139 38 30 06/25/19 12:00 Mechanical Ventilator 06/25/19 12:00 138 06/25/19 12:00 34 129/75 Mechanical Ventilator 30 06/25/19 12:00 30 06/25/19 12:00 99.6 149 37 173/79 (110) 100 06/25/19 11:30 122 38 132/69 (90) 98 06/25/19 11:00 106 39 159/85 (109) 98 06/25/19 10:57 81 26 98 Mechanical Ventilator 30 96 28 30 06/25/19 10:30 95 24 144/79 (100) 99 06/25/19 10:00 107 28 169/87 (114) 98 06/25/19 09:02 98 06/25/19 09:00 98 28 116/63 (80) 98 06/25/19 08:00 Mechanical Ventilator 06/25/19 08:00 99.5 78 27 96/58 (71) 98 06/25/19 08:00 81 06/25/19 07:30 30 06/25/19 07:30 26 99/55 Mechanical Ventilator 30 Intake and Output 06/26/19 06/27/19 19:00 07:00 Intake Total 502.94 ml 365 ml Output Total 3300 ml 210 ml Balance -2797.06 ml 155 ml IV Total 122.94 ml 85 ml Tube Feeding 280 ml 280 ml Other 100 ml Output Urine Total 300 ml 210 ml Hemodialysis UF 3000 ml # Bowel Movements 1 4 Labs Test 06/25/19 03:45 06/25/19 08:35 06/26/19 04:00 06/27/19 04:00 White Blood Count 11.2 K/UL (4.8-10.8) 13.6 K/UL (4.8-10.8) Red Blood Count 2.70 M/UL (4.70-6.10) 2.63 M/UL (4.70-6.10) Hemoglobin 8.1 G/DL (14.2-18.0) 7.9 G/DL (14.2-18.0) Hematocrit 25.1 % (42.0-52.0) 24.6 % (42.0-52.0) Mean Corpuscular Volume 93 FL (80-99) 93 FL (80-99) Mean Corpuscular Hemoglobin 30.1 PG (27.0-31.0) 29.9 PG (27.0-31.0) Mean Corpuscular Hemoglobin Concent 32.5 G/DL (32.0-36.0) 32.0 G/DL (32.0-36.0) Red Cell Distribution Width 18.1 % (11.6-14.8) 18.4 % (11.6-14.8) Platelet Count 285 K/UL (150-450) 319 K/UL (150-450) Mean Platelet Volume 6.9 FL (6.5-10.1) 6.8 FL (6.5-10.1) Neutrophils (%) (Auto) % (45.0-75.0) % (45.0-75.0) Lymphocytes (%) (Auto) % (20.0-45.0) % (20.0-45.0) Monocytes (%) (Auto) % (1.0-10.0) % (1.0-10.0) Eosinophils (%) (Auto) % (0.0-3.0) % (0.0-3.0) Basophils (%) (Auto) % (0.0-2.0) % (0.0-2.0) Differential Total Cells Counted 100 100 Neutrophils % (Manual) 92 % (45-75) 82 % (45-75) Lymphocytes % (Manual) 2 % (20-45) 9 % (20-45) Monocytes % (Manual) 5 % (1-10) 8 % (1-10) Eosinophils % (Manual) 1 % (0-3) 1 % (0-3) Basophils % (Manual) 0 % (0-2) 0 % (0-2) Band Neutrophils 0 % (0-8) 0 % (0-8) Platelet Estimate Adequate Adequate Platelet Morphology Normal Normal Polychromasia 1+ 1+ Anisocytosis 1+ 1+ Sodium Level 135 MMOL/L (136-145) 136 MMOL/L (136-145) 140 MMOL/L (136-145) Potassium Level 3.1 MMOL/L (3.5-5.1) 3.2 MMOL/L (3.5-5.1) 4.5 MMOL/L (3.5-5.1) Chloride Level 95 MMOL/L (98-107) 96 MMOL/L (98-107) 106 MMOL/L (98-107) Carbon Dioxide Level 27 MMOL/L (21-32) 25 MMOL/L (21-32) 25 MMOL/L (21-32) Anion Gap 13 mmol/L (5-15) 9 mmol/L (5-15) Blood Urea Nitrogen 47 mg/dL (7-18) 57 mg/dL (7-18) 54 mg/dL (7-18) Creatinine 5.8 MG/DL (0.55-1.30) 6.8 MG/DL (0.55-1.30) 2.7 MG/DL (0.55-1.30) Estimat Glomerular Filtration Rate 9.8 mL/min (>60) 8.2 mL/min (>60) 23.8 mL/min (>60) Glucose Level 160 MG/DL (74-106) 135 MG/DL (74-106) 188 MG/DL (74-106) Calcium Level 8.7 MG/DL (8.5-10.1) 8.5 MG/DL (8.5-10.1) 7.4 MG/DL (8.5-10.1) Phosphorus Level 2.9 MG/DL (2.5-4.9) 3.7 MG/DL (2.5-4.9) 4.5 MG/DL (2.5-4.9) Magnesium Level 2.2 MG/DL (1.8-2.4) 2.2 MG/DL (1.8-2.4) 2.9 MG/DL (1.8-2.4) Total Bilirubin 0.3 MG/DL (0.2-1.0) 0.3 MG/DL (0.2-1.0) 0.4 MG/DL (0.2-1.0) Aspartate Amino Transf (AST/SGOT) 23 U/L (15-37) 20 U/L (15-37) 32 U/L (15-37) Alanine Aminotransferase (ALT/SGPT) 10 U/L (12-78) 8 U/L (12-78) 26 U/L (12-78) Alkaline Phosphatase 88 U/L (46-116) 79 U/L (46-116) 169 U/L (46-116) C-Reactive Protein, Quantitative 23.3 mg/dL (0.00-0.90) Total Protein 7.2 G/DL (6.4-8.2) 7.1 G/DL (6.4-8.2) 6.1 G/DL (6.4-8.2) Albumin 1.6 G/DL (3.4-5.0) 1.5 G/DL (3.4-5.0) 1.8 G/DL (3.4-5.0) Globulin 5.6 g/dL 5.6 g/dL 4.3 g/dL Albumin/Globulin Ratio 0.3 (1.0-2.7) 0.3 (1.0-2.7) 0.4 (1.0-2.7) Arterial Blood pH 7.431 (7.350-7.450) Arterial Blood Partial Pressure CO2 40.4 mmHg (35.0-45.0) Arterial Blood Partial Pressure O2 91.1 mmHg (75.0-100.0) Arterial Blood HCO3 26.3 mmol/L (22.0-26.0) Arterial Blood Oxygen Saturation 97.2 % (95-100) Arterial Blood Base Excess 1.8 (-2-2) Kosta Test Positive Hypochromasia 1+ Test 06/27/19 06:50 White Blood Count 13.3 K/UL (4.8-10.8) Red Blood Count 2.55 M/UL (4.70-6.10) Hemoglobin 8.0 G/DL (14.2-18.0) Hematocrit 23.5 % (42.0-52.0) Mean Corpuscular Volume 92 FL (80-99) Mean Corpuscular Hemoglobin 31.4 PG (27.0-31.0) Mean Corpuscular Hemoglobin Concent 34.1 G/DL (32.0-36.0) Red Cell Distribution Width 18.0 % (11.6-14.8) Platelet Count 326 K/UL (150-450) Mean Platelet Volume 7.4 FL (6.5-10.1) Neutrophils (%) (Auto) % (45.0-75.0) Lymphocytes (%) (Auto) % (20.0-45.0) Monocytes (%) (Auto) % (1.0-10.0) Eosinophils (%) (Auto) % (0.0-3.0) Basophils (%) (Auto) % (0.0-2.0) Height (Feet): 6 Height (Inches): 1.00 Weight (Pounds): 237 Objective Sp02 EP Interpretation: reviewed General: nv, confused, sedated Heent: bilateral eye normal inspection, bilateral eye PERRL ++Ng Respiratory: normal breath sounds, no respiratory distress, intubated+++ Cardiovascular: regular rate, rhythm, no edema Gastrointestinal: normal inspection, soft, non-distended Rectal: deferred Musculoskeletal: normal range of motion, non-tender Neurologic: alert, motor strength/tone normal, sensory intact, responsive, speech normal Skin: Decubitus/Ulcer - See RN skin exam. : jamaal+ Greg Cabral MD June 27, 2019 07:26
--- NOTE | 2019-06-27 07:41 | General Progress Note ---
Assessment/Plan Status: unchanged Assessment/Plan: 1. Diabetes. 2. Hypertension. 3. Coronary artery disease. 4. COPD. 5. Psychiatric disorder with schizophrenia. 6. History of hepatitis C. 7. HLP. 8. Chronic kidney disease, now with acute renal failure. 9. Anemia. 10. Hypothyroidism. 11. Spinal stenosis. 12. Constipation. 13. GERD. 14. COVID positive HD per nephrology TF>> on hold for weaning recent labs and notes reviewed stable H&H will fu Subjective ROS Limited/Unobtainable: No Allergies: Coded Allergies: No Known Allergies (Unverified , 05/28/19) Objective Last 24 Hour Vital Signs Date Time Temp Pulse Resp B/P (MAP) Pulse Ox O2 Delivery O2 Flow Rate FiO2 06/27/19 07:10 100 06/27/19 07:06 84 25 100 Mechanical Ventilator 30 85 25 30 30 06/27/19 07:03 82 35 151/66 (94) 100 06/27/19 07:00 90 20 154/77 (102) 100 06/27/19 06:30 98 25 06/27/19 06:00 98.6 87 26 130/61 (84) 100 06/27/19 05:30 80 26 118/63 (81) 100 06/27/19 05:08 99.6 06/27/19 05:00 94 26 150/70 (96) 100 06/27/19 04:30 91 26 148/68 (94) 99 06/27/19 04:00 Mechanical Ventilator 06/27/19 04:00 87 06/27/19 04:00 30 06/27/19 04:00 100.0 72 26 107/57 (74) 100 06/27/19 03:30 91 26 144/59 (87) 99 06/27/19 03:23 73 26 100 Mechanical Ventilator 30 77 26 30 06/27/19 03:00 26 120/85 Mechanical Ventilator 30 06/27/19 03:00 69 26 124/57 (79) 100 06/27/19 02:30 67 26 107/54 (71) 100 06/27/19 02:00 70 26 105/52 (69) 100 06/27/19 02:00 26 105/52 Mechanical Ventilator 30 06/27/19 01:00 26 103/52 Mechanical Ventilator 30 06/27/19 01:00 73 26 99/53 (68) 100 06/27/19 00:30 77 26 110/60 (77) 100 06/27/19 00:00 Mechanical Ventilator 06/27/19 00:00 92 06/27/19 00:00 30 06/27/19 00:00 26 123/65 Mechanical Ventilator 30 06/27/19 00:00 76 26 98/55 (69) 100 06/26/19 23:30 86 26 98/53 (68) 100 06/26/19 23:00 87 10 134/76 (95) 99 06/26/19 23:00 26 134/76 Mechanical Ventilator 30 06/26/19 22:59 85 26 100 Mechanical Ventilator 30 86 26 30 06/26/19 22:00 116 35 160/76 (104) 99 06/26/19 22:00 26 160/76 Mechanical Ventilator 30 06/26/19 21:34 26 163/85 30 06/26/19 21:00 26 139/77 Mechanical Ventilator 30 06/26/19 21:00 88 26 139/77 (97) 99 06/26/19 20:00 99.4 86 26 113/59 (77) 99 06/26/19 20:00 Mechanical Ventilator 06/26/19 20:00 96 06/26/19 20:00 26 125/80 Mechanical Ventilator 30 06/26/19 20:00 30 06/26/19 19:30 83 27 100 Mechanical Ventilator 30 85 28 30 06/26/19 19:00 103 26 134/67 (89) 100 06/26/19 19:00 26 134/67 Mechanical Ventilator 30 06/26/19 18:00 82 21 103/60 (74) 100 06/26/19 18:00 21 103/60 Mechanical Ventilator 30 06/26/19 17:00 91 23 104/62 (76) 100 06/26/19 17:00 23 104/62 Mechanical Ventilator 30 06/26/19 16:30 95 26 160/81 (107) 99 06/26/19 16:00 23 137/65 Mechanical Ventilator 30 06/26/19 16:00 105 23 137/65 (89) 100 06/26/19 16:00 93 06/26/19 16:00 Mechanical Ventilator 06/26/19 16:00 30 06/26/19 15:20 89 26 100 Mechanical Ventilator 30 88 26 30 06/26/19 15:00 26 109/72 Mechanical Ventilator 30 06/26/19 15:00 26 109/72 Mechanical Ventilator 30 06/26/19 15:00 92 26 109/72 (84) 99 06/26/19 14:15 104 27 140/69 (92) 100 06/26/19 14:00 28 125/77 Mechanical Ventilator 30 06/26/19 14:00 109 28 125/77 (93) 100 06/26/19 13:30 39 138/81 Mechanical Ventilator 30 06/26/19 13:00 135/84 06/26/19 13:00 127 39 135/84 (101) 100 06/26/19 12:30 135 32 112/74 (87) 99 06/26/19 12:15 137 32 118/71 (87) 99 06/26/19 12:00 127 06/26/19 12:00 98.9 136 33 96/76 (83) 97 06/26/19 12:00 96/76 06/26/19 12:00 30 06/26/19 12:00 Mechanical Ventilator 06/26/19 11:00 125 27 117/98 (104) 99 06/26/19 11:00 117/98 06/26/19 10:48 120 30 99 Mechanical Ventilator 30 115 29 30 06/26/19 10:30 104 27 109/68 (82) 100 06/26/19 10:00 148/67 06/26/19 10:00 104 27 148/67 (94) 99 06/26/19 09:30 98 27 131/61 (84) 100 06/26/19 09:00 98.6 97 27 130/64 (86) 98 06/26/19 09:00 130/64 06/26/19 08:30 107 28 141/66 (91) 99 06/26/19 08:02 98 06/26/19 08:00 Mechanical Ventilator 06/26/19 08:00 30 06/26/19 08:00 106 26 135/67 (89) 99 06/26/19 08:00 120 06/26/19 08:00 135/67 Intake and Output 06/26/19 06/27/19 19:00 07:00 Intake Total 502.94 ml 365 ml Output Total 3300 ml 210 ml Balance -2797.06 ml 155 ml IV Total 122.94 ml 85 ml Tube Feeding 280 ml 280 ml Other 100 ml Output Urine Total 300 ml 210 ml Hemodialysis UF 3000 ml # Bowel Movements 1 4 Laboratory Tests 06/27/19 04:00: Sodium Level 140, Potassium Level 4.5, Chloride Level 106, Carbon Dioxide Level 25, Anion Gap 9, Blood Urea Nitrogen 54H, Creatinine 2.7#H, Estimat Glomerular Filtration Rate 23.8, Glucose Level 188H, Calcium Level 7.4L, Phosphorus Level 4.5, Magnesium Level 2.9H, Total Bilirubin 0.4, Aspartate Amino Transf (AST/SGOT ) 32, Alanine Aminotransferase (ALT/SGPT) 26, Alkaline Phosphatase 169H, Total Protein 6.1L, Albumin 1.8L, Globulin 4.3, Albumin/Globulin Ratio 0.4L 06/27/19 06:50: White Blood Count 13.3H, Red Blood Count 2.55L, Hemoglobin 8.0L, Hematocrit 23.5L, Mean Corpuscular Volume 92, Mean Corpuscular Hemoglobin 31.4H, Mean Corpuscular Hemoglobin Concent 34.1, Red Cell Distribution Width 18.0H, Platelet Count 326, Mean Platelet Volume 7.4, Neutrophils (%) (Auto) , Lymphocytes (%) (Auto) , Monocytes (%) (Auto) , Eosinophils (%) (Auto) , Basophils (%) (Auto) , Neutrophils % (Manual) [Pending], Lymphocytes % (Manual) [Pending], Platelet Estimate [Pending], Platelet Morphology [Pending] Height (Feet): 6 Height (Inches): 1.00 Weight (Pounds): 237 General Appearance: no apparent distress EENT: normal ENT inspection Neck: supple Cardiovascular: normal rate Respiratory/Chest: decreased breath sounds Abdomen: soft, hypoactive bowel sounds Extremities: non-tender Marito Ramires MD June 27, 2019 07:41
[2019-06-27] MEDS: Pantoprazole Inj IVP SCH (08:05)
[2019-06-27] MEDS: Docusate 100mg/10ml Liq NG SCH ×3 (08:05→17:17)
[2019-06-27] MEDS: Midodrine 10mg tab NG SCH ×3 (08:05→17:17)
[2019-06-27] MEDS: Enoxaparin 30mg Inj SUBQ SCH (08:06)
--- NOTE | 2019-06-27 11:07 | Infectious Diseases Prog Note ---
Assessment/Plan Assessment/Plan IMPRESSION: 1. COVID19 pneumonia Positive: 05/27, 05/31 , 06/05, 06/09 ,06/17, 06/19, 06/23 2. MRSA carrier. 3. Chronic kidney disease , end-stage renal disease. 4. COPD. 5. Hypertension. 6. Anemia. 7. Hypothyroidism. 8. Hyperlipidemia. 9. Major depression. 10. Leukocytosis 11. Hypotension 12. Hepatitis C 13. Hyperuricemia 14. Diarrhea 15. septic shock 16. Leukocytosis improving RECOMMENDATIONS: Observe off of antibiotic Finished hydroxychloroquine. Will f/u COVID19 test Case was D/W RN Subjective ROS Limited/Unobtainable: Yes Constitutional: Reports: fever, other - Jx=[id number] Respiratory: Reports: other - on weaning process Allergies: Coded Allergies: No Known Allergies (Unverified , 05/28/19) Objective Vital Signs Last 24 Hour Vital Signs Date Time Temp Pulse Resp B/P (MAP) Pulse Ox O2 Delivery O2 Flow Rate FiO2 06/27/19 09:20 81 25 30 06/27/19 09:00 75 25 131/70 (90) 99 06/27/19 08:30 79 24 135/62 (86) 99 06/27/19 08:00 Mechanical Ventilator 06/27/19 08:00 81 06/27/19 08:00 98.3 86 21 141/78 (99) 99 06/27/19 07:10 100 06/27/19 07:06 84 25 100 Mechanical Ventilator 30 85 25 30 30 06/27/19 07:03 82 35 151/66 (94) 100 06/27/19 07:00 90 20 154/77 (102) 100 06/27/19 06:30 98 25 06/27/19 06:00 98.6 87 26 130/61 (84) 100 06/27/19 05:30 80 26 118/63 (81) 100 06/27/19 05:08 99.6 06/27/19 05:00 94 26 150/70 (96) 100 06/27/19 04:30 91 26 148/68 (94) 99 06/27/19 04:00 Mechanical Ventilator 06/27/19 04:00 87 06/27/19 04:00 30 06/27/19 04:00 100.0 72 26 107/57 (74) 100 06/27/19 03:30 91 26 144/59 (87) 99 06/27/19 03:23 73 26 100 Mechanical Ventilator 30 77 26 30 06/27/19 03:00 26 120/85 Mechanical Ventilator 30 06/27/19 03:00 69 26 124/57 (79) 100 06/27/19 02:30 67 26 107/54 (71) 100 06/27/19 02:00 70 26 105/52 (69) 100 06/27/19 02:00 26 105/52 Mechanical Ventilator 30 06/27/19 01:00 26 103/52 Mechanical Ventilator 30 06/27/19 01:00 73 26 99/53 (68) 100 06/27/19 00:30 77 26 110/60 (77) 100 06/27/19 00:00 Mechanical Ventilator 06/27/19 00:00 92 06/27/19 00:00 30 06/27/19 00:00 26 123/65 Mechanical Ventilator 30 06/27/19 00:00 76 26 98/55 (69) 100 06/26/19 23:30 86 26 98/53 (68) 100 06/26/19 23:00 87 10 134/76 (95) 99 06/26/19 23:00 26 134/76 Mechanical Ventilator 30 06/26/19 22:59 85 26 100 Mechanical Ventilator 30 86 26 30 06/26/19 22:00 116 35 160/76 (104) 99 06/26/19 22:00 26 160/76 Mechanical Ventilator 30 06/26/19 21:34 26 163/85 30 06/26/19 21:00 26 139/77 Mechanical Ventilator 30 06/26/19 21:00 88 26 139/77 (97) 99 06/26/19 20:00 99.4 86 26 113/59 (77) 99 06/26/19 20:00 Mechanical Ventilator 06/26/19 20:00 96 06/26/19 20:00 26 125/80 Mechanical Ventilator 30 06/26/19 20:00 30 06/26/19 19:30 83 27 100 Mechanical Ventilator 30 85 28 30 06/26/19 19:00 103 26 134/67 (89) 100 06/26/19 19:00 26 134/67 Mechanical Ventilator 30 06/26/19 18:00 82 21 103/60 (74) 100 06/26/19 18:00 21 103/60 Mechanical Ventilator 30 06/26/19 17:00 91 23 104/62 (76) 100 06/26/19 17:00 23 104/62 Mechanical Ventilator 30 06/26/19 16:30 95 26 160/81 (107) 99 06/26/19 16:00 23 137/65 Mechanical Ventilator 30 06/26/19 16:00 105 23 137/65 (89) 100 06/26/19 16:00 93 06/26/19 16:00 Mechanical Ventilator 06/26/19 16:00 30 06/26/19 15:20 89 26 100 Mechanical Ventilator 30 88 26 30 06/26/19 15:00 26 109/72 Mechanical Ventilator 30 06/26/19 15:00 26 109/72 Mechanical Ventilator 30 06/26/19 15:00 92 26 109/72 (84) 99 06/26/19 14:15 104 27 140/69 (92) 100 06/26/19 14:00 28 125/77 Mechanical Ventilator 30 06/26/19 14:00 109 28 125/77 (93) 100 06/26/19 13:30 39 138/81 Mechanical Ventilator 30 06/26/19 13:00 135/84 06/26/19 13:00 127 39 135/84 (101) 100 06/26/19 12:30 135 32 112/74 (87) 99 06/26/19 12:15 137 32 118/71 (87) 99 06/26/19 12:00 127 06/26/19 12:00 98.9 136 33 96/76 (83) 97 06/26/19 12:00 96/76 06/26/19 12:00 30 06/26/19 12:00 Mechanical Ventilator Height (Feet): 6 Height (Inches): 1.00 Weight (Pounds): 237 HEENT: other - orally intubated Respiratory/Chest: other - on ventilator Cardiovascular: normal rate, other - Left subclavian central line, R femoral HD line Abdomen: soft, non tender, other - tube feeding Extremities: no edema Neurologic/Psychiatric: disoriented Microbiology Date/Time Source Procedure Growth Status 06/24/19 16:40 Nasopharynx Coronavirus COVID-19 PCR ([facility]) - Final Complete Laboratory Tests Test 06/27/19 04:00 06/27/19 06:50 Sodium Level 140 MMOL/L (136-145) Potassium Level 4.5 MMOL/L (3.5-5.1) Chloride Level 106 MMOL/L (98-107) Carbon Dioxide Level 25 MMOL/L (21-32) Anion Gap 9 mmol/L (5-15) Blood Urea Nitrogen 54 mg/dL (7-18) H Creatinine 2.7 MG/DL (0.55-1.30) #H Estimat Glomerular Filtration Rate 23.8 mL/min (>60) Glucose Level 188 MG/DL (74-106) H Calcium Level 7.4 MG/DL (8.5-10.1) L Phosphorus Level 4.5 MG/DL (2.5-4.9) Magnesium Level 2.9 MG/DL (1.8-2.4) H Total Bilirubin 0.4 MG/DL (0.2-1.0) Aspartate Amino Transf (AST/SGOT) 32 U/L (15-37) Alanine Aminotransferase (ALT/SGPT) 26 U/L (12-78) Alkaline Phosphatase 169 U/L (46-116) H Total Protein 6.1 G/DL (6.4-8.2) L Albumin 1.8 G/DL (3.4-5.0) L Globulin 4.3 g/dL Albumin/Globulin Ratio 0.4 (1.0-2.7) L White Blood Count 13.3 K/UL (4.8-10.8) H Red Blood Count 2.55 M/UL (4.70-6.10) L Hemoglobin 8.0 G/DL (14.2-18.0) L Hematocrit 23.5 % (42.0-52.0) L Mean Corpuscular Volume 92 FL (80-99) Mean Corpuscular Hemoglobin 31.4 PG (27.0-31.0) H Mean Corpuscular Hemoglobin Concent 34.1 G/DL (32.0-36.0) Red Cell Distribution Width 18.0 % (11.6-14.8) H Platelet Count 326 K/UL (150-450) Mean Platelet Volume 7.4 FL (6.5-10.1) Neutrophils (%) (Auto) % (45.0-75.0) Lymphocytes (%) (Auto) % (20.0-45.0) Monocytes (%) (Auto) % (1.0-10.0) Eosinophils (%) (Auto) % (0.0-3.0) Basophils (%) (Auto) % (0.0-2.0) Differential Total Cells Counted 100 Neutrophils % (Manual) 79 % (45-75) H Lymphocytes % (Manual) 14 % (20-45) L Monocytes % (Manual) 6 % (1-10) Eosinophils % (Manual) 1 % (0-3) Basophils % (Manual) 0 % (0-2) Band Neutrophils 0 % (0-8) Platelet Estimate Adequate Platelet Morphology Normal Polychromasia 1+ Hypochromasia 1+ Anisocytosis 1+ Current Medications Medications (Trade) Dose Ordered Sig/Anthony Route PRN Reason Start Time Stop Time Status Last Admin Dose Admin Acetaminophen (Tylenol) 650 mg Q4H PRN NG Temp >100.5 06/13/19 11:00 07/13/19 10:59 06/27/19 04:21 Albuterol Sulfate (Proventil MDI) 2 puff Q4HRT INH 06/06/19 23:00 08/30/19 18:59 06/27/19 06:59 Chlorhexidine Gluconate (Michelle-Hex 2%) 1 applic DAILY@2000 TOPIC 06/07/19 20:00 09/05/19 19:59 06/26/19 21:32 Dextrose (Dextrose 50%) 25 ml Q30M PRN IV Hypoglycemia 06/20/19 19:30 09/18/19 19:29 Dextrose (Dextrose 50%) 50 ml Q30M PRN IV Hypoglycemia 06/20/19 19:30 09/18/19 19:29 Docusate Sodium (Colace) 100 mg THREE TIMES A DAY NG 06/07/19 13:00 07/07/19 12:59 06/27/19 08:05 Dopamine HCl/ Dextrose 250 ml @ 0 mls/hr Q24H PRN IV For hypotension 06/13/19 08:15 09/11/19 08:14 Enoxaparin Sodium (Lovenox) 30 mg DAILY SUBQ 06/07/19 09:00 08/27/19 08:59 06/27/19 08:06 Epoetin Aftab (Epoetin Aftab(ESRD on dialysis)) 10,000 unit FRI-WED-FRI SUBQ 06/07/19 21:00 08/31/19 20:59 06/25/19 21:23 Fentanyl Citrate 250 ml @ 0 mls/hr Q24H IV 06/24/19 06:00 09/22/19 05:59 06/26/19 21:34 Hydralazine HCl (Apresoline) 10 mg Q4H PRN IV Blood pressure over 160 systol 06/07/19 10:15 09/05/19 10:14 Insulin Aspart (NovoLOG) EVERY 6 HOURS SUBQ 06/21/19 00:00 09/19/19 00:00 06/27/19 05:07 Metoclopramide HCl (Reglan) 5 mg Q8H PRN IVP Nausea & Vomiting 06/18/19 12:00 07/18/19 11:59 06/19/19 00:50 Midodrine (Pro-Amatine) 10 mg THREE TIMES A DAY NG 06/09/19 13:00 09/07/19 12:59 06/27/19 08:05 Norepinephrine Bitartrate 8 mg/ Dextrose 283 ml @ 0 mls/hr Q24H IV 06/23/19 23:00 07/23/19 22:59 06/25/19 14:38 Pantoprazole (Protonix) 40 mg DAILY IVP 06/19/19 09:00 07/19/19 08:59 06/27/19 08:05 Sevelamer Carbonate (Renvela) 1,600 mg Q8HR NG 06/25/19 22:00 09/05/19 12:59 06/27/19 04:21 Ted Leyva MD June 27, 2019 11:07
--- NOTE | 2019-06-27 11:48 | Nephrology Progress Note ---
Assessment/Plan Problem List: (1) CASSANDRA (acute kidney injury) (2) Anemia in chronic kidney disease (CKD) (3) HTN (hypertension) (4) COVID-19 Assessment Acute renal failure most likely superimposed on chronic kidney disease Suspected COVID-19 virus infection Possible Pneumonia, lymphopenia, elevated AST Cardiomegaly, possible CHF COPD Hypertension Anemia, most likely related to chronic kidney disease Plan June 26 Labs reviewed Dialyzed yesterday Started on weaning today Continue to monitor renal parameters June 25: On dialysis now Potassium supplement implemented Continue per consultants Next dialysis June 27June 15: Status unchanged Dialyzed yesterday will dialyze again tomorrow Potassium supplements given Discussed with RN June 14: Due dialysis today Status: Remains intubated on ventilator June 22: Status unchanged Dialyzed yesterday and due for dialysis tomorrow Serum sodium stable today June 21 Remains intubated on ventilator Due dialysis today Emphasized high sodium bath for dialysis June 20: Remains intubated on ventilator Dialyzed June 19 next dialysis June 21 Serum sodium 128, will give 250 cc 3% saline Remains full code Discussed with RN Iron panel ordered June 19: Discussed with RN. Patient due for dialysis today. Continue pulmonary support. Remains full code. June 18: Patient dialyzed yesterday June 17 Serum sodium improved but still low Arrange for dialysis tomorrow June 19 Continue per consultants June 8: Due for dialysis today Today's lab reviewed, low serum sodium noted, Emphasized on high sodium bath to dialysis nurse Discussed with SHANIQUE Yuen June 7: Dialyzed yesterday Remains intubated Labs reviewed, serum sodium 131 Plan to dialyze tomorrow June 17 with high sodium bath Discussed with SHANIQUE Alpa June 6: Due for dialysis today Labs reviewed Discussed with RN Transfuse 1 unit of packed RBCs today for low hemoglobin of 7.1 June 5: Blood pressure well maintained Receive dialysis June 13 next hemodialysis June 15June 4: Discussed with RN in ICU Patient did not receive proper dialysis yesterday due to dialysis catheter malfunction Catheter to be adjusted today and dialyzed to be resumed today Continue per consultants Positive for COVID 28 June 2: Patient now intubated on mechanical ventilation Discussed with SHANIQUE Yuen, today June 12 Patient received dialysis yesterday June 10 next hemodialysis June 12 Blood pressure better maintained Today's labs reviewed Continue per consultants Previously patient received dialysis last evening June 05, next dialysis June 07 which was incomplete due to patient's hypotension Will start on midodrine for blood pressure support. Meanwhile continue other pressors as needed Previously Patient is doing poorly, septic, white blood cells are rising, Hypotension somewhat improved We will keep n.p.o. , NG tube for medications, and change medication to IV as needed Patient remains full code Monitor vancomycin level Previously: Patient pulled out his femoral catheter yesterday June 03 which was reinserted by Dr. Mast Patient scheduled for dialysis again June 04, which again was not done due to dialysis nurse citing catheter malfunction Meanwhile continue management per ID, pulmonary , and psych. Meanwhile white blood cell count is rising. Patient blood pressure borderline low. Will check ABG Previously May 31 : I believe patient need dialysis treatment He however needs to competency assessment if can make decisions or not I will communicate with Dr. Mulligan Previously: Per pulmonary and ID advice Adjust blood pressure medication Renal diet Anemia work-up 2D echocardiogram refused Kidney ultrasound refused Jules catheter Urine studies Per orders Subjective ROS Limited/Unobtainable: Yes Objective Objective Last 24 Hour Vital Signs Date Time Temp Pulse Resp B/P (MAP) Pulse Ox O2 Delivery O2 Flow Rate FiO2 06/27/19 09:20 81 25 30 06/27/19 09:00 75 25 131/70 (90) 99 06/27/19 08:30 79 24 135/62 (86) 99 06/27/19 08:00 Mechanical Ventilator 06/27/19 08:00 81 06/27/19 08:00 98.3 86 21 141/78 (99) 99 06/27/19 07:10 100 06/27/19 07:06 84 25 100 Mechanical Ventilator 30 85 25 30 30 06/27/19 07:03 82 35 151/66 (94) 100 06/27/19 07:00 90 20 154/77 (102) 100 06/27/19 06:30 98 25 06/27/19 06:00 98.6 87 26 130/61 (84) 100 06/27/19 05:30 80 26 118/63 (81) 100 06/27/19 05:08 99.6 06/27/19 05:00 94 26 150/70 (96) 100 06/27/19 04:30 91 26 148/68 (94) 99 06/27/19 04:00 Mechanical Ventilator 06/27/19 04:00 87 06/27/19 04:00 30 06/27/19 04:00 100.0 72 26 107/57 (74) 100 06/27/19 03:30 91 26 144/59 (87) 99 06/27/19 03:23 73 26 100 Mechanical Ventilator 30 77 26 30 06/27/19 03:00 26 120/85 Mechanical Ventilator 30 06/27/19 03:00 69 26 124/57 (79) 100 06/27/19 02:30 67 26 107/54 (71) 100 06/27/19 02:00 70 26 105/52 (69) 100 06/27/19 02:00 26 105/52 Mechanical Ventilator 30 06/27/19 01:00 26 103/52 Mechanical Ventilator 30 06/27/19 01:00 73 26 99/53 (68) 100 06/27/19 00:30 77 26 110/60 (77) 100 06/27/19 00:00 Mechanical Ventilator 06/27/19 00:00 92 06/27/19 00:00 30 06/27/19 00:00 26 123/65 Mechanical Ventilator 30 06/27/19 00:00 76 26 98/55 (69) 100 06/26/19 23:30 86 26 98/53 (68) 100 06/26/19 23:00 87 10 134/76 (95) 99 06/26/19 23:00 26 134/76 Mechanical Ventilator 30 06/26/19 22:59 85 26 100 Mechanical Ventilator 30 86 26 30 06/26/19 22:00 116 35 160/76 (104) 99 06/26/19 22:00 26 160/76 Mechanical Ventilator 30 06/26/19 21:34 26 163/85 30 06/26/19 21:00 26 139/77 Mechanical Ventilator 30 06/26/19 21:00 88 26 139/77 (97) 99 06/26/19 20:00 99.4 86 26 113/59 (77) 99 06/26/19 20:00 Mechanical Ventilator 06/26/19 20:00 96 06/26/19 20:00 26 125/80 Mechanical Ventilator 30 06/26/19 20:00 30 06/26/19 19:30 83 27 100 Mechanical Ventilator 30 85 28 30 06/26/19 19:00 103 26 134/67 (89) 100 06/26/19 19:00 26 134/67 Mechanical Ventilator 30 06/26/19 18:00 82 21 103/60 (74) 100 06/26/19 18:00 21 103/60 Mechanical Ventilator 30 06/26/19 17:00 91 23 104/62 (76) 100 06/26/19 17:00 23 104/62 Mechanical Ventilator 30 06/26/19 16:30 95 26 160/81 (107) 99 06/26/19 16:00 23 137/65 Mechanical Ventilator 30 06/26/19 16:00 105 23 137/65 (89) 100 06/26/19 16:00 93 06/26/19 16:00 Mechanical Ventilator 06/26/19 16:00 30 06/26/19 15:20 89 26 100 Mechanical Ventilator 30 88 26 30 06/26/19 15:00 26 109/72 Mechanical Ventilator 30 06/26/19 15:00 26 109/72 Mechanical Ventilator 30 06/26/19 15:00 92 26 109/72 (84) 99 06/26/19 14:15 104 27 140/69 (92) 100 06/26/19 14:00 28 125/77 Mechanical Ventilator 30 06/26/19 14:00 109 28 125/77 (93) 100 06/26/19 13:30 39 138/81 Mechanical Ventilator 30 06/26/19 13:00 135/84 06/26/19 13:00 127 39 135/84 (101) 100 06/26/19 12:30 135 32 112/74 (87) 99 06/26/19 12:15 137 32 118/71 (87) 99 06/26/19 12:00 127 06/26/19 12:00 98.9 136 33 96/76 (83) 97 06/26/19 12:00 96/76 06/26/19 12:00 30 06/26/19 12:00 Mechanical Ventilator Intake and Output 06/26/19 06/27/19 19:00 07:00 Intake Total 502.94 ml 365 ml Output Total 3300 ml 210 ml Balance -2797.06 ml 155 ml IV Total 122.94 ml 85 ml Tube Feeding 280 ml 280 ml Other 100 ml Output Urine Total 300 ml 210 ml Hemodialysis UF 3000 ml # Bowel Movements 1 4 Laboratory Tests 06/27/19 04:00: Sodium Level 140, Potassium Level 4.5, Chloride Level 106, Carbon Dioxide Level 25, Anion Gap 9, Blood Urea Nitrogen 54H, Creatinine 2.7#H, Estimat Glomerular Filtration Rate 23.8, Glucose Level 188H, Calcium Level 7.4L, Phosphorus Level 4.5, Magnesium Level 2.9H, Total Bilirubin 0.4, Aspartate Amino Transf (AST/SGOT ) 32, Alanine Aminotransferase (ALT/SGPT) 26, Alkaline Phosphatase 169H, Total Protein 6.1L, Albumin 1.8L, Globulin 4.3, Albumin/Globulin Ratio 0.4L 06/27/19 06:50: White Blood Count 13.3H, Red Blood Count 2.55L, Hemoglobin 8.0L, Hematocrit 23.5L, Mean Corpuscular Volume 92, Mean Corpuscular Hemoglobin 31.4H, Mean Corpuscular Hemoglobin Concent 34.1, Red Cell Distribution Width 18.0H, Platelet Count 326, Mean Platelet Volume 7.4, Neutrophils (%) (Auto) , Lymphocytes (%) (Auto) , Monocytes (%) (Auto) , Eosinophils (%) (Auto) , Basophils (%) (Auto) , Differential Total Cells Counted 100, Neutrophils % ( Manual) 79H, Lymphocytes % (Manual) 14L, Monocytes % (Manual) 6, Eosinophils % ( Manual) 1, Basophils % (Manual) 0, Band Neutrophils 0, Platelet Estimate Adequate, Platelet Morphology Normal, Polychromasia 1+, Hypochromasia 1+, Anisocytosis 1+ 06/27/19 11:20: Arterial Blood pH 7.413, Arterial Blood Partial Pressure CO2 41.7, Arterial Blood Partial Pressure O2 104.3H, Arterial Blood HCO3 26.0, Arterial Blood Oxygen Saturation 97.9, Arterial Blood Base Excess 1.3, Kosta Test Positive Height (Feet): 6 Height (Inches): 1.00 Weight (Pounds): 237 General Appearance: no apparent distress EENT: other - Remains intubated on ventilator Cardiovascular: normal rate Respiratory/Chest: decreased breath sounds Abdomen: distended Objective No change Mic Cole MD June 27, 2019 11:48
--- NOTE | 2019-06-27 13:01 | Surgery Progress Note ---
Surgery Progress Note Subjective Procedure Performed Right femoral temporary hemodialysis catheter insertion Additional Comments afebrile labs reviewed [facility] weaning vent HD planned Objective Last 24 Hour Vital Signs Date Time Temp Pulse Resp B/P (MAP) Pulse Ox O2 Delivery O2 Flow Rate FiO2 06/27/19 11:23 82 27 100 Mechanical Ventilator 30 82 27 30 06/27/19 11:00 82 27 143/71 (95) 99 06/27/19 10:00 75 26 131/62 (85) 98 06/27/19 09:20 81 25 30 06/27/19 09:00 75 25 131/70 (90) 99 06/27/19 08:30 79 24 135/62 (86) 99 06/27/19 08:00 Mechanical Ventilator 06/27/19 08:00 81 06/27/19 08:00 98.3 86 21 141/78 (99) 99 06/27/19 07:10 100 06/27/19 07:06 84 25 100 Mechanical Ventilator 30 85 25 30 30 06/27/19 07:03 82 35 151/66 (94) 100 06/27/19 07:00 90 20 154/77 (102) 100 06/27/19 06:30 98 25 06/27/19 06:00 98.6 87 26 130/61 (84) 100 06/27/19 05:30 80 26 118/63 (81) 100 06/27/19 05:08 99.6 06/27/19 05:00 94 26 150/70 (96) 100 06/27/19 04:30 91 26 148/68 (94) 99 06/27/19 04:00 Mechanical Ventilator 06/27/19 04:00 87 06/27/19 04:00 30 06/27/19 04:00 100.0 72 26 107/57 (74) 100 06/27/19 03:30 91 26 144/59 (87) 99 06/27/19 03:23 73 26 100 Mechanical Ventilator 30 77 26 30 06/27/19 03:00 26 120/85 Mechanical Ventilator 30 06/27/19 03:00 69 26 124/57 (79) 100 06/27/19 02:30 67 26 107/54 (71) 100 06/27/19 02:00 70 26 105/52 (69) 100 06/27/19 02:00 26 105/52 Mechanical Ventilator 30 06/27/19 01:00 26 103/52 Mechanical Ventilator 30 06/27/19 01:00 73 26 99/53 (68) 100 06/27/19 00:30 77 26 110/60 (77) 100 06/27/19 00:00 Mechanical Ventilator 06/27/19 00:00 92 06/27/19 00:00 30 06/27/19 00:00 26 123/65 Mechanical Ventilator 30 06/27/19 00:00 76 26 98/55 (69) 100 06/26/19 23:30 86 26 98/53 (68) 100 06/26/19 23:00 87 10 134/76 (95) 99 06/26/19 23:00 26 134/76 Mechanical Ventilator 30 06/26/19 22:59 85 26 100 Mechanical Ventilator 30 86 26 30 06/26/19 22:00 116 35 160/76 (104) 99 06/26/19 22:00 26 160/76 Mechanical Ventilator 30 06/26/19 21:34 26 163/85 30 06/26/19 21:00 26 139/77 Mechanical Ventilator 30 06/26/19 21:00 88 26 139/77 (97) 99 06/26/19 20:00 99.4 86 26 113/59 (77) 99 06/26/19 20:00 Mechanical Ventilator 06/26/19 20:00 96 06/26/19 20:00 26 125/80 Mechanical Ventilator 30 06/26/19 20:00 30 06/26/19 19:30 83 27 100 Mechanical Ventilator 30 85 28 30 06/26/19 19:00 103 26 134/67 (89) 100 06/26/19 19:00 26 134/67 Mechanical Ventilator 30 06/26/19 18:00 82 21 103/60 (74) 100 06/26/19 18:00 21 103/60 Mechanical Ventilator 30 06/26/19 17:00 91 23 104/62 (76) 100 06/26/19 17:00 23 104/62 Mechanical Ventilator 30 06/26/19 16:30 95 26 160/81 (107) 99 06/26/19 16:00 23 137/65 Mechanical Ventilator 30 06/26/19 16:00 105 23 137/65 (89) 100 06/26/19 16:00 93 06/26/19 16:00 Mechanical Ventilator 06/26/19 16:00 30 5/16/20 15:20 89 26 100 Mechanical Ventilator 30 88 26 30 06/26/19 15:00 26 109/72 Mechanical Ventilator 30 06/26/19 15:00 26 109/72 Mechanical Ventilator 30 06/26/19 15:00 92 26 109/72 (84) 99 06/26/19 14:15 104 27 140/69 (92) 100 06/26/19 14:00 28 125/77 Mechanical Ventilator 30 06/26/19 14:00 109 28 125/77 (93) 100 06/26/19 13:30 39 138/81 Mechanical Ventilator 30 I&O Intake and Output 06/26/19 06/27/19 19:00 07:00 Intake Total 502.94 ml 365 ml Output Total 3300 ml 210 ml Balance -2797.06 ml 155 ml IV Total 122.94 ml 85 ml Tube Feeding 280 ml 280 ml Other 100 ml Output Urine Total 300 ml 210 ml Hemodialysis UF 3000 ml # Bowel Movements 1 4 Dressing: saturated Wound: other Drains: other Cardiovascular: RSR Respiratory: decreased breath sounds Abdomen: soft, non-tender, present bowel sounds Extremities: no cyanosis, other Laboratory Tests Test 06/27/19 04:00 06/27/19 06:50 06/27/19 11:20 Sodium Level 140 MMOL/L (136-145) Potassium Level 4.5 MMOL/L (3.5-5.1) Chloride Level 106 MMOL/L (98-107) Carbon Dioxide Level 25 MMOL/L (21-32) Anion Gap 9 mmol/L (5-15) Blood Urea Nitrogen 54 mg/dL (7-18) H Creatinine 2.7 MG/DL (0.55-1.30) #H Estimat Glomerular Filtration Rate 23.8 mL/min (>60) Glucose Level 188 MG/DL (74-106) H Calcium Level 7.4 MG/DL (8.5-10.1) L Phosphorus Level 4.5 MG/DL (2.5-4.9) Magnesium Level 2.9 MG/DL (1.8-2.4) H Total Bilirubin 0.4 MG/DL (0.2-1.0) Aspartate Amino Transf (AST/SGOT) 32 U/L (15-37) Alanine Aminotransferase (ALT/SGPT) 26 U/L (12-78) Alkaline Phosphatase 169 U/L (46-116) H Total Protein 6.1 G/DL (6.4-8.2) L Albumin 1.8 G/DL (3.4-5.0) L Globulin 4.3 g/dL Albumin/Globulin Ratio 0.4 (1.0-2.7) L White Blood Count 13.3 K/UL (4.8-10.8) H Red Blood Count 2.55 M/UL (4.70-6.10) L Hemoglobin 8.0 G/DL (14.2-18.0) L Hematocrit 23.5 % (42.0-52.0) L Mean Corpuscular Volume 92 FL (80-99) Mean Corpuscular Hemoglobin 31.4 PG (27.0-31.0) H Mean Corpuscular Hemoglobin Concent 34.1 G/DL (32.0-36.0) Red Cell Distribution Width 18.0 % (11.6-14.8) H Platelet Count 326 K/UL (150-450) Mean Platelet Volume 7.4 FL (6.5-10.1) Neutrophils (%) (Auto) % (45.0-75.0) Lymphocytes (%) (Auto) % (20.0-45.0) Monocytes (%) (Auto) % (1.0-10.0) Eosinophils (%) (Auto) % (0.0-3.0) Basophils (%) (Auto) % (0.0-2.0) Differential Total Cells Counted 100 Neutrophils % (Manual) 79 % (45-75) H Lymphocytes % (Manual) 14 % (20-45) L Monocytes % (Manual) 6 % (1-10) Eosinophils % (Manual) 1 % (0-3) Basophils % (Manual) 0 % (0-2) Band Neutrophils 0 % (0-8) Platelet Estimate Adequate Platelet Morphology Normal Polychromasia 1+ Hypochromasia 1+ Anisocytosis 1+ Arterial Blood pH 7.413 (7.350-7.450) Arterial Blood Partial Pressure CO2 41.7 mmHg (35.0-45.0) Arterial Blood Partial Pressure O2 104.3 mmHg (75.0-100.0) H Arterial Blood HCO3 26.0 mmol/L (22.0-26.0) Arterial Blood Oxygen Saturation 97.9 % (95-100) Arterial Blood Base Excess 1.3 (-2-2) Kosta Test Positive Plan Problems: (1) Suspected COVID-19 virus infection (2) HTN (hypertension) (3) CASSANDRA (acute kidney injury) Assessment & Plan: Needs urgent HD needs access patient okay and consented see note will follow with recs new line placed discussed with team and nephrology HD line functional when checked has TPA now please use appropriately Cathflo used again this flow during dialysis on 430 was low. Will monitor may need line change 5/ plan for HD as per renal may need to take fluid off with HD edema anasarca dressings saturated and changed will monitor (4) Anemia in chronic kidney disease (CKD) (5) Anemia (6) Renal failure (7) Suspected COVID-19 virus infection Assessment & Plan: Pt deconditioned and despite all skin preventions Pt noted to have developed several pressure injuries. . Stable dry eschar noted to clefts of R and L ears. No erythema noted . DTPI noted to L trochanter. Base of injury is maroon in colour with marginal erythema along borders. Partially opened DTPI Sacrum, R and L Buttocks. Base of wound is maroon with two small open wounds L sacrum and L buttocks. Pt has an APM/MOMO Mattress overlay and is being positioned with pillows as per tolerance and within protocols. Tx.Plan: Apply Cavilon Skin Barrier to both ears Daily and prn. Apply Moisture Barrier Paste to Sacrum,R and L Buttocks. Cover with Optifoam drsgs. Change every 3 days and PRN. Apply Cavilon Skin Barrier to R and L trochanter. Cover each site with Optifoam drsgs.Change every 7 days and PRN. Apply Cavilon Skin Barrier to both heels. Cover each heel with Optifoam drsg. Change every 7 days and prn. Off-load heels with pillow. Reposition at least every 2hours or as tolerated. APM/MOMO Mattress overlay. (8) COVID-19 Assessment & Plan: COVID + c diff negative febrile leukocytosis renal insufficiency see above cont resp care Rx as per ID worsening on vent support now cxr noted on pressors prognosis guarded repeat covid ++ weaning vent and pressors off slowly showing improvement Yaniv Mast June 27, 2019 13:01
--- NOTE | 2019-06-27 14:34 | Cardiac Electrophysiology PN ---
Assessment/Plan Assessment/Plan 1. Elevated troponin. Troponin on May 27 and May 30 were negative, on June 01, it was elevated at 0.074. Repeat 0.05. Likely due to renal failure. On Aspirin. EF 60%. 2. S/P Septic shock. Off Levo 3. ESRD, on hemodialysis per Dr. Cole. 4. COVID-19 positive pneumonia. On the Vent with 30% Fio2. Fu by Dr. Mckeon. 5. MRSA carrier. 6. COPD. 7. Anemia. 8. Depression. 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 . Is Covid positive x 3. Objective Last 24 Hour Vital Signs Date Time Temp Pulse Resp B/P (MAP) Pulse Ox O2 Delivery O2 Flow Rate FiO2 06/27/19 14:00 100 34 151/77 (101) 98 06/27/19 13:00 86 28 141/76 (97) 98 06/27/19 12:30 81 24 138/72 (94) 98 06/27/19 12:00 100 06/27/19 12:00 98.6 79 27 135/69 (91) 99 06/27/19 11:23 82 27 100 Mechanical Ventilator 30 82 27 30 06/27/19 11:00 82 27 143/71 (95) 99 06/27/19 10:00 75 26 131/62 (85) 98 06/27/19 09:20 81 25 30 06/27/19 09:00 75 25 131/70 (90) 99 06/27/19 08:30 79 24 135/62 (86) 99 06/27/19 08:00 Mechanical Ventilator 06/27/19 08:00 81 06/27/19 08:00 98.3 86 21 141/78 (99) 99 06/27/19 07:10 100 06/27/19 07:06 84 25 100 Mechanical Ventilator 30 85 25 30 30 06/27/19 07:03 82 35 151/66 (94) 100 06/27/19 07:00 90 20 154/77 (102) 100 06/27/19 06:30 98 25 06/27/19 06:00 98.6 87 26 130/61 (84) 100 06/27/19 05:30 80 26 118/63 (81) 100 06/27/19 05:08 99.6 06/27/19 05:00 94 26 150/70 (96) 100 06/27/19 04:30 91 26 148/68 (94) 99 06/27/19 04:00 Mechanical Ventilator 06/27/19 04:00 87 06/27/19 04:00 30 06/27/19 04:00 100.0 72 26 107/57 (74) 100 06/27/19 03:30 91 26 144/59 (87) 99 06/27/19 03:23 73 26 100 Mechanical Ventilator 30 77 26 30 06/27/19 03:00 26 120/85 Mechanical Ventilator 30 06/27/19 03:00 69 26 124/57 (79) 100 06/27/19 02:30 67 26 107/54 (71) 100 06/27/19 02:00 70 26 105/52 (69) 100 06/27/19 02:00 26 105/52 Mechanical Ventilator 30 06/27/19 01:00 26 103/52 Mechanical Ventilator 30 06/27/19 01:00 73 26 99/53 (68) 100 06/27/19 00:30 77 26 110/60 (77) 100 06/27/19 00:00 Mechanical Ventilator 06/27/19 00:00 92 06/27/19 00:00 30 06/27/19 00:00 26 123/65 Mechanical Ventilator 30 06/27/19 00:00 76 26 98/55 (69) 100 06/26/19 23:30 86 26 98/53 (68) 100 06/26/19 23:00 87 10 134/76 (95) 99 06/26/19 23:00 26 134/76 Mechanical Ventilator 30 06/26/19 22:59 85 26 100 Mechanical Ventilator 30 86 26 30 06/26/19 22:00 116 35 160/76 (104) 99 06/26/19 22:00 26 160/76 Mechanical Ventilator 30 06/26/19 21:34 26 163/85 30 06/26/19 21:00 26 139/77 Mechanical Ventilator 30 06/26/19 21:00 88 26 139/77 (97) 99 06/26/19 20:00 99.4 86 26 113/59 (77) 99 06/26/19 20:00 Mechanical Ventilator 06/26/19 20:00 96 06/26/19 20:00 26 125/80 Mechanical Ventilator 30 06/26/19 20:00 30 06/26/19 19:30 83 27 100 Mechanical Ventilator 30 85 28 30 06/26/19 19:00 103 26 134/67 (89) 100 06/26/19 19:00 26 134/67 Mechanical Ventilator 30 06/26/19 18:00 82 21 103/60 (74) 100 06/26/19 18:00 21 103/60 Mechanical Ventilator 30 06/26/19 17:00 91 23 104/62 (76) 100 06/26/19 17:00 23 104/62 Mechanical Ventilator 30 06/26/19 16:30 95 26 160/81 (107) 99 06/26/19 16:00 23 137/65 Mechanical Ventilator 30 06/26/19 16:00 105 23 137/65 (89) 100 06/26/19 16:00 93 06/26/19 16:00 Mechanical Ventilator 06/26/19 16:00 30 06/26/19 15:20 89 26 100 Mechanical Ventilator 30 88 26 30 06/26/19 15:00 26 109/72 Mechanical Ventilator 30 06/26/19 15:00 26 109/72 Mechanical Ventilator 30 06/26/19 15:00 92 26 109/72 (84) 99 Intake and Output 06/26/19 06/27/19 19:00 07:00 Intake Total 502.94 ml 365 ml Output Total 3300 ml 210 ml Balance -2797.06 ml 155 ml IV Total 122.94 ml 85 ml Tube Feeding 280 ml 280 ml Other 100 ml Output Urine Total 300 ml 210 ml Hemodialysis UF 3000 ml # Bowel Movements 1 4 Laboratory Tests Test 06/27/19 04:00 06/27/19 06:50 06/27/19 11:20 Sodium Level 140 MMOL/L (136-145) Potassium Level 4.5 MMOL/L (3.5-5.1) Chloride Level 106 MMOL/L (98-107) Carbon Dioxide Level 25 MMOL/L (21-32) Anion Gap 9 mmol/L (5-15) Blood Urea Nitrogen 54 mg/dL (7-18) H Creatinine 2.7 MG/DL (0.55-1.30) #H Estimat Glomerular Filtration Rate 23.8 mL/min (>60) Glucose Level 188 MG/DL (74-106) H Calcium Level 7.4 MG/DL (8.5-10.1) L Phosphorus Level 4.5 MG/DL (2.5-4.9) Magnesium Level 2.9 MG/DL (1.8-2.4) H Total Bilirubin 0.4 MG/DL (0.2-1.0) Aspartate Amino Transf (AST/SGOT) 32 U/L (15-37) Alanine Aminotransferase (ALT/SGPT) 26 U/L (12-78) Alkaline Phosphatase 169 U/L (46-116) H Total Protein 6.1 G/DL (6.4-8.2) L Albumin 1.8 G/DL (3.4-5.0) L Globulin 4.3 g/dL Albumin/Globulin Ratio 0.4 (1.0-2.7) L White Blood Count 13.3 K/UL (4.8-10.8) H Red Blood Count 2.55 M/UL (4.70-6.10) L Hemoglobin 8.0 G/DL (14.2-18.0) L Hematocrit 23.5 % (42.0-52.0) L Mean Corpuscular Volume 92 FL (80-99) Mean Corpuscular Hemoglobin 31.4 PG (27.0-31.0) H Mean Corpuscular Hemoglobin Concent 34.1 G/DL (32.0-36.0) Red Cell Distribution Width 18.0 % (11.6-14.8) H Platelet Count 326 K/UL (150-450) Mean Platelet Volume 7.4 FL (6.5-10.1) Neutrophils (%) (Auto) % (45.0-75.0) Lymphocytes (%) (Auto) % (20.0-45.0) Monocytes (%) (Auto) % (1.0-10.0) Eosinophils (%) (Auto) % (0.0-3.0) Basophils (%) (Auto) % (0.0-2.0) Differential Total Cells Counted 100 Neutrophils % (Manual) 79 % (45-75) H Lymphocytes % (Manual) 14 % (20-45) L Monocytes % (Manual) 6 % (1-10) Eosinophils % (Manual) 1 % (0-3) Basophils % (Manual) 0 % (0-2) Band Neutrophils 0 % (0-8) Platelet Estimate Adequate Platelet Morphology Normal Polychromasia 1+ Hypochromasia 1+ Anisocytosis 1+ Arterial Blood pH 7.413 (7.350-7.450) Arterial Blood Partial Pressure CO2 41.7 mmHg (35.0-45.0) Arterial Blood Partial Pressure O2 104.3 mmHg (75.0-100.0) H Arterial Blood HCO3 26.0 mmol/L (22.0-26.0) Arterial Blood Oxygen Saturation 97.9 % (95-100) Arterial Blood Base Excess 1.3 (-2-2) Kosta Test Positive Microbiology Date/Time Source Procedure Growth Status 06/24/19 16:40 Nasopharynx Coronavirus COVID-19 PCR ([facility]) - Final Complete Objective HEAD AND NECK: No JVD. Orally intubated LUNGS: Decreased breath sounds. CARDIOVASCULAR: Regular S1 and S2. Tachycardic. ABDOMEN: Soft. EXTREMITIES: No pitting edema. New Left FV Gio Engle MD June 27, 2019 14:34
[2019-06-27] MEDS ORDERED: NS 275ml ONE (15:52)
--- NOTE | 2019-06-27 16:46 | General Progress Note ---
Assessment/Plan Problem List: (1) Anemia ICD Codes: D64.9 - Anemia, unspecified SNOMED: 781387313 (2) Renal failure ICD Codes: N19 - Unspecified kidney failure SNOMED: 19577735 (3) Suspected COVID-19 virus infection ICD Codes: R68.89 - Other general symptoms and signs SNOMED: 760143487 (4) HTN (hypertension) ICD Codes: I10 - Essential (primary) hypertension SNOMED: 29830779 (5) CASSANDRA (acute kidney injury) ICD Codes: N17.9 - Acute kidney failure, unspecified SNOMED: 8884460, 06872321 (6) Anemia in chronic kidney disease (CKD) ICD Codes: N18.9 - Chronic kidney disease, unspecified; D63.1 - Anemia in chronic kidney disease SNOMED: 467558348 (7) Suspected COVID-19 virus infection ICD Codes: R68.89 - Other general symptoms and signs SNOMED: 639429502 Status: unchanged Assessment/Plan: hypokalemia resolved renal failure pna covid positve resp failure sepsis hyponatrmia resolved supportive therapy persistent leukoytosis htn anemia.h/h stable Subjective ROS Limited/Unobtainable: Yes Allergies: Coded Allergies: No Known Allergies (Unverified , 05/28/19) Objective Last 24 Hour Vital Signs Date Time Temp Pulse Resp B/P (MAP) Pulse Ox O2 Delivery O2 Flow Rate FiO2 06/27/19 16:00 30 06/27/19 16:00 98.3 88 15 162/81 (108) 99 06/27/19 16:00 Mechanical Ventilator 06/27/19 15:00 83 22 159/72 (101) 98 06/27/19 14:30 87 26 100 Mechanical Ventilator 30 87 26 30 06/27/19 14:30 30 06/27/19 14:00 100 34 151/77 (101) 98 06/27/19 13:00 86 28 141/76 (97) 98 06/27/19 12:30 81 24 138/72 (94) 98 06/27/19 12:00 100 06/27/19 12:00 98.6 79 27 135/69 (91) 99 06/27/19 12:00 30 06/27/19 12:00 Mechanical Ventilator 06/27/19 11:23 82 27 100 Mechanical Ventilator 30 82 27 30 06/27/19 11:00 82 27 143/71 (95) 99 06/27/19 10:00 75 26 131/62 (85) 98 06/27/19 09:20 81 25 30 06/27/19 09:00 75 25 131/70 (90) 99 06/27/19 08:30 79 24 135/62 (86) 99 06/27/19 08:00 Mechanical Ventilator 06/27/19 08:00 81 06/27/19 08:00 98.3 86 21 141/78 (99) 99 06/27/19 07:10 100 06/27/19 07:06 84 25 100 Mechanical Ventilator 30 85 25 30 30 06/27/19 07:03 82 35 151/66 (94) 100 06/27/19 07:00 90 20 154/77 (102) 100 06/27/19 07:00 30 06/27/19 06:30 98 25 06/27/19 06:00 98.6 87 26 130/61 (84) 100 06/27/19 05:30 80 26 118/63 (81) 100 06/27/19 05:08 99.6 06/27/19 05:00 94 26 150/70 (96) 100 06/27/19 04:30 91 26 148/68 (94) 99 06/27/19 04:00 Mechanical Ventilator 06/27/19 04:00 87 06/27/19 04:00 30 06/27/19 04:00 100.0 72 26 107/57 (74) 100 06/27/19 03:30 91 26 144/59 (87) 99 06/27/19 03:23 73 26 100 Mechanical Ventilator 30 77 26 30 06/27/19 03:00 26 120/85 Mechanical Ventilator 30 06/27/19 03:00 69 26 124/57 (79) 100 06/27/19 02:30 67 26 107/54 (71) 100 06/27/19 02:00 70 26 105/52 (69) 100 06/27/19 02:00 26 105/52 Mechanical Ventilator 30 06/27/19 01:00 26 103/52 Mechanical Ventilator 30 06/27/19 01:00 73 26 99/53 (68) 100 06/27/19 00:30 77 26 110/60 (77) 100 06/27/19 00:00 Mechanical Ventilator 06/27/19 00:00 92 06/27/19 00:00 30 06/27/19 00:00 26 123/65 Mechanical Ventilator 30 06/27/19 00:00 76 26 98/55 (69) 100 06/26/19 23:30 86 26 98/53 (68) 100 06/26/19 23:00 87 10 134/76 (95) 99 06/26/19 23:00 26 134/76 Mechanical Ventilator 30 06/26/19 22:59 85 26 100 Mechanical Ventilator 30 86 26 30 06/26/19 22:00 116 35 160/76 (104) 99 06/26/19 22:00 26 160/76 Mechanical Ventilator 30 06/26/19 21:34 26 163/85 30 06/26/19 21:00 26 139/77 Mechanical Ventilator 30 06/26/19 21:00 88 26 139/77 (97) 99 06/26/19 20:00 99.4 86 26 113/59 (77) 99 06/26/19 20:00 Mechanical Ventilator 06/26/19 20:00 96 06/26/19 20:00 26 125/80 Mechanical Ventilator 30 06/26/19 20:00 30 06/26/19 19:30 83 27 100 Mechanical Ventilator 30 85 28 30 06/26/19 19:00 103 26 134/67 (89) 100 06/26/19 19:00 26 134/67 Mechanical Ventilator 30 06/26/19 18:00 82 21 103/60 (74) 100 06/26/19 18:00 21 103/60 Mechanical Ventilator 30 06/26/19 17:00 91 23 104/62 (76) 100 06/26/19 17:00 23 104/62 Mechanical Ventilator 30 Intake and Output 06/26/19 06/27/19 19:00 07:00 Intake Total 502.94 ml 365 ml Output Total 3300 ml 210 ml Balance -2797.06 ml 155 ml IV Total 122.94 ml 85 ml Tube Feeding 280 ml 280 ml Other 100 ml Output Urine Total 300 ml 210 ml Hemodialysis UF 3000 ml # Bowel Movements 1 4 Laboratory Tests 06/27/19 04:00: Sodium Level 140, Potassium Level 4.5, Chloride Level 106, Carbon Dioxide Level 25, Anion Gap 9, Blood Urea Nitrogen 54H, Creatinine 2.7#H, Estimat Glomerular Filtration Rate 23.8, Glucose Level 188H, Calcium Level 7.4L, Phosphorus Level 4.5, Magnesium Level 2.9H, Total Bilirubin 0.4, Aspartate Amino Transf (AST/SGOT ) 32, Alanine Aminotransferase (ALT/SGPT) 26, Alkaline Phosphatase 169H, Total Protein 6.1L, Albumin 1.8L, Globulin 4.3, Albumin/Globulin Ratio 0.4L 06/27/19 06:50: White Blood Count 13.3H, Red Blood Count 2.55L, Hemoglobin 8.0L, Hematocrit 23.5L, Mean Corpuscular Volume 92, Mean Corpuscular Hemoglobin 31.4H, Mean Corpuscular Hemoglobin Concent 34.1, Red Cell Distribution Width 18.0H, Platelet Count 326, Mean Platelet Volume 7.4, Neutrophils (%) (Auto) , Lymphocytes (%) (Auto) , Monocytes (%) (Auto) , Eosinophils (%) (Auto) , Basophils (%) (Auto) , Differential Total Cells Counted 100, Neutrophils % ( Manual) 79H, Lymphocytes % (Manual) 14L, Monocytes % (Manual) 6, Eosinophils % ( Manual) 1, Basophils % (Manual) 0, Band Neutrophils 0, Platelet Estimate Adequate, Platelet Morphology Normal, Polychromasia 1+, Hypochromasia 1+, Anisocytosis 1+ 06/27/19 11:20: Arterial Blood pH 7.413, Arterial Blood Partial Pressure CO2 41.7, Arterial Blood Partial Pressure O2 104.3H, Arterial Blood HCO3 26.0, Arterial Blood Oxygen Saturation 97.9, Arterial Blood Base Excess 1.3, Kosta Test Positive Height (Feet): 6 Height (Inches): 1.00 Weight (Pounds): 237 Karishma Mulligan MD June 27, 2019 16:46
--- NOTE | 2019-06-27 17:46 | Pulmonolgy Critical Care Note ---
Critical Care - Asmt/Plan Assessment/Plan: Pulmonary CCM Progress Note HPI: Patient is a 68 year old man, long-term resident, admitted c/o shortness of breath, cough, noted to have Covid 19 Pneumonia, Respiratory Failure S/p intubation, CXR stable ETT adjusted Septic Shock, pressors off Preserved EF FIO2 40%-50%, P5, adequate O2 sats, remains on ACVC, tolerated weaning again, remains sedated, minimal secretions HD tolerated Hyponatremia stable Anemia stable ID following On HD per Renal Past Medical History: COPD, CKD, Hypertension, Anemia Hypotension requiring pressors, in ICU Persistently elevated WCC Allergies: No Known Allergies Improving Pulmonary Status on HD Physical Exam Vital Signs Noted Sedated on ventilator WDWN, no distress HEENT: NCAT,moist mm Chest: Occasional rhonchi Heart: HS1, HS2, RRR Abdomen: SNTND, no masses Extremities: Well perfused, no edema 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, no 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, 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 Impression: COVID-19 virus infection Pneumonia Respiratory failure on ventilator Volume overload improving - on HD Hypotension on pressors Cardiomegaly Lymphopenia Elevated AST COPD Chronic Kidney Disease - HD H/o Hypertension Worsening anemia Plan: Antibiotics per ID HD Pressors PRN ACVC - wean as tolerated once pressors reduced/off 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 Monitor cultures/viral studies PPX Hemodialysis per Renal Psychiatry following [facility] - [facility] requested for when available, [facility] - not available as yet Laboratory Tests Noted: CXR: Hypoventilatory exam, interstitial changes, cardiomegaly, improving infiltrates Subjective ROS Limited/Unobtainable: No Constitutional: Denies: fever Respiratory: Reports: dry cough, shortness of breath Gastrointestinal/Abdominal: Reports: diarrhea, other - colace was stopped Psychiatric: Reports: other - refuses labs Allergies: Coded Allergies: No Known Allergies (Unverified , 05/28/19) All Systems: reviewed and negative except above Labs noted Critical Care - Objective Last 24 Hour Vital Signs Date Time Temp Pulse Resp B/P (MAP) Pulse Ox O2 Delivery O2 Flow Rate FiO2 06/27/19 17:00 100 21 156/72 (100) 98 06/27/19 16:00 102 06/27/19 16:00 30 06/27/19 16:00 98.3 88 15 162/81 (108) 99 06/27/19 16:00 Mechanical Ventilator 06/27/19 15:00 83 22 159/72 (101) 98 06/27/19 14:30 87 26 100 Mechanical Ventilator 30 87 26 30 06/27/19 14:30 30 06/27/19 14:00 100 34 151/77 (101) 98 06/27/19 13:00 86 28 141/76 (97) 98 06/27/19 12:30 81 24 138/72 (94) 98 06/27/19 12:00 100 06/27/19 12:00 98.6 79 27 135/69 (91) 99 06/27/19 12:00 30 06/27/19 12:00 Mechanical Ventilator 06/27/19 11:23 82 27 100 Mechanical Ventilator 30 82 27 30 06/27/19 11:00 82 27 143/71 (95) 99 06/27/19 10:00 75 26 131/62 (85) 98 06/27/19 09:20 81 25 30 06/27/19 09:00 75 25 131/70 (90) 99 06/27/19 08:30 79 24 135/62 (86) 99 06/27/19 08:00 Mechanical Ventilator 06/27/19 08:00 81 06/27/19 08:00 98.3 86 21 141/78 (99) 99 06/27/19 07:10 100 06/27/19 07:06 84 25 100 Mechanical Ventilator 30 85 25 30 30 06/27/19 07:03 82 35 151/66 (94) 100 06/27/19 07:00 90 20 154/77 (102) 100 06/27/19 07:00 30 06/27/19 06:30 98 25 06/27/19 06:00 98.6 87 26 130/61 (84) 100 06/27/19 05:30 80 26 118/63 (81) 100 06/27/19 05:08 99.6 06/27/19 05:00 94 26 150/70 (96) 100 06/27/19 04:30 91 26 148/68 (94) 99 06/27/19 04:00 Mechanical Ventilator 06/27/19 04:00 87 06/27/19 04:00 30 06/27/19 04:00 100.0 72 26 107/57 (74) 100 06/27/19 03:30 91 26 144/59 (87) 99 06/27/19 03:23 73 26 100 Mechanical Ventilator 30 77 26 30 06/27/19 03:00 26 120/85 Mechanical Ventilator 30 06/27/19 03:00 69 26 124/57 (79) 100 06/27/19 02:30 67 26 107/54 (71) 100 06/27/19 02:00 70 26 105/52 (69) 100 06/27/19 02:00 26 105/52 Mechanical Ventilator 30 06/27/19 01:00 26 103/52 Mechanical Ventilator 30 06/27/19 01:00 73 26 99/53 (68) 100 06/27/19 00:30 77 26 110/60 (77) 100 06/27/19 00:00 Mechanical Ventilator 06/27/19 00:00 92 06/27/19 00:00 30 06/27/19 00:00 26 123/65 Mechanical Ventilator 30 06/27/19 00:00 76 26 98/55 (69) 100 06/26/19 23:30 86 26 98/53 (68) 100 06/26/19 23:00 87 10 134/76 (95) 99 06/26/19 23:00 26 134/76 Mechanical Ventilator 30 06/26/19 22:59 85 26 100 Mechanical Ventilator 30 86 26 30 06/26/19 22:00 116 35 160/76 (104) 99 06/26/19 22:00 26 160/76 Mechanical Ventilator 30 06/26/19 21:34 26 163/85 30 06/26/19 21:00 26 139/77 Mechanical Ventilator 30 06/26/19 21:00 88 26 139/77 (97) 99 06/26/19 20:00 99.4 86 26 113/59 (77) 99 06/26/19 20:00 Mechanical Ventilator 06/26/19 20:00 96 06/26/19 20:00 26 125/80 Mechanical Ventilator 30 06/26/19 20:00 30 06/26/19 19:30 83 27 100 Mechanical Ventilator 30 85 28 30 06/26/19 19:00 103 26 134/67 (89) 100 06/26/19 19:00 26 134/67 Mechanical Ventilator 30 06/26/19 18:00 82 21 103/60 (74) 100 06/26/19 18:00 21 103/60 Mechanical Ventilator 30 Accucheck: 213 Critical Care - Subjective Condition: improving IV Access: central FI02: 30 Vent Support Breath Rate: 26 Vent Support Mode: AC Vent Tidal Volume: 500 Sputum Amount: Small PEEP: 5.0 PIP: 23 Tube Feeding Amount: 35 I&O: Intake and Output 06/26/19 06/27/19 19:00 07:00 Intake Total 502.94 ml 365 ml Output Total 3300 ml 210 ml Balance -2797.06 ml 155 ml IV Total 122.94 ml 85 ml Tube Feeding 280 ml 280 ml Other 100 ml Output Urine Total 300 ml 210 ml Hemodialysis UF 3000 ml # Bowel Movements 1 4 ET-Tube: 7.5 ET Position: 26 Arturo Mckeon MD June 27, 2019 17:46
[2019-06-27] MEDS: Dyna-Hex 2% Top Sol 2oz TOPIC SCH (20:24)
[2019-06-27] MEDS: D5W IV SCH ×3 (23:00)
[2019-06-27] MEDS: NOREPINEPHRINE BITARTRATE IV SCH ×3 (23:00)
[2019-06-28] VITALS (37 sets, daily range): BP systolic 118–172; BP diastolic 54–80
[2019-06-28] MEDS: NovoLOG Insulin Flexpen SUBQ SCH ×4 (00:18→17:38)
[2019-06-28] MEDS: Albuterol 90mcg Inhaler 8gm INH SCH ×6 (03:52→23:56)
[2019-06-28 05:39] LABS: HEMATOCRIT 25.2 % (42.0-52.0); HEMOGLOBIN 7.9 G/DL (14.2-18.0); MEAN CORPUSCULAR VOLUME 94 FL (80-99); PLATELET COUNT 365 K/UL (150-450); RED BLOOD COUNT 2.67 M/UL (4.70-6.10)
[2019-06-28 05:51] LABS: ALANINE AMINOTRANSFERASE 7 U/L (12-78); ALBUMIN 1.8 G/DL (3.4-5.0); ALBUMIN/GLOBULIN RATIO 0.3 (1.0-2.7); ALKALINE PHOSPHATASE 88 U/L (46-116); ANION GAP 15 mmol/L (5-15); ASPARTATE AMINO TRANSFERASE 22 U/L (15-37); BILIRUBIN,TOTAL 0.3 MG/DL (0.2-1.0); BLOOD UREA NITROGEN 61 mg/dL (7-18); CALCIUM 9.2 MG/DL (8.5-10.1); CARBON DIOXIDE 26 MMOL/L (21-32); CHLORIDE 97 MMOL/L (98-107); CREATININE 7.1 MG/DL (0.55-1.30); PHOSPHORUS 4.2 MG/DL (2.5-4.9); POTASSIUM 3.4 MMOL/L (3.5-5.1); SODIUM 138 MMOL/L (136-145)
[2019-06-28] MEDS: Renvela 800mg Pkt NG SCH ×3 (06:03→21:05)
[2019-06-28] MEDS: Pantoprazole Inj IVP SCH (09:16)
[2019-06-28] MEDS: Docusate 100mg/10ml Liq NG SCH ×3 (09:16→17:28)
[2019-06-28] MEDS: Midodrine 10mg tab NG SCH ×3 (09:16→17:28)
[2019-06-28] MEDS: fentaNYL 2500mcg/NS 250ml IV SCH (09:18)
[2019-06-28] MEDS: Enoxaparin 30mg Inj SUBQ SCH (09:19)
--- NOTE | 2019-06-28 09:43 | Nephrology Progress Note ---
Assessment/Plan Problem List: (1) CASSANDRA (acute kidney injury) (2) Anemia in chronic kidney disease (CKD) (3) HTN (hypertension) (4) COVID-19 Assessment Acute renal failure most likely superimposed on chronic kidney disease Suspected COVID-19 virus infection Possible Pneumonia, lymphopenia, elevated AST Cardiomegaly, possible CHF COPD Hypertension Anemia, most likely related to chronic kidney disease Plan June 27: Labs reviewed Due due for dialysis June 28 Discussed with SHANIQUE Dick Continue per consultants Remains intubated on ventilator June 26 Labs reviewed Dialyzed yesterday Started on weaning today Continue to monitor renal parameters June 25: On dialysis now Potassium supplement implemented Continue per consultants Next dialysis June 27June 15: Status unchanged Dialyzed yesterday will dialyze again tomorrow Potassium supplements given Discussed with RN June 23: Due dialysis today Status: Remains intubated on ventilator June 22: Status unchanged Dialyzed yesterday and due for dialysis tomorrow Serum sodium stable today June 21 Remains intubated on ventilator Due dialysis today Emphasized high sodium bath for dialysis June 20: Remains intubated on ventilator Dialyzed June 19 next dialysis June 21 Serum sodium 128, will give 250 cc 3% saline Remains full code Discussed with RN Iron panel ordered June 19: Discussed with RN. Patient due for dialysis today. Continue pulmonary support. Remains full code. June 18: Patient dialyzed yesterday June 17 Serum sodium improved but still low Arrange for dialysis tomorrow June 19 Continue per consultants June 8: Due for dialysis today Today's lab reviewed, low serum sodium noted, Emphasized on high sodium bath to dialysis nurse Discussed with SHANIQUE Yuen June 16: Dialyzed yesterday Remains intubated Labs reviewed, serum sodium 131 Plan to dialyze tomorrow June 17 with high sodium bath Discussed with SHANIQUE Alpa June 6: Due for dialysis today Labs reviewed Discussed with RN Transfuse 1 unit of packed RBCs today for low hemoglobin of 7.1 June 5: Blood pressure well maintained Receive dialysis June 13 next hemodialysis June 15June 4: Discussed with RN in ICU Patient did not receive proper dialysis yesterday due to dialysis catheter malfunction Catheter to be adjusted today and dialyzed to be resumed today Continue per consultants Positive for COVID 28 June 2: Patient now intubated on mechanical ventilation Discussed with SHANIQUE Yuen today June 12 Patient received dialysis yesterday June 10 next hemodialysis June 12 Blood pressure better maintained Today's labs reviewed Continue per consultants Previously patient received dialysis last evening June 05, next dialysis June 07 which was incomplete due to patient's hypotension Will start on midodrine for blood pressure support. Meanwhile continue other pressors as needed Previously Patient is doing poorly, septic, white blood cells are rising, Hypotension somewhat improved We will keep n.p.o. , NG tube for medications, and change medication to IV as needed Patient remains full code Monitor vancomycin level Previously: Patient pulled out his femoral catheter yesterday June 03 which was reinserted by Dr. Mast Patient scheduled for dialysis again June 04, which again was not done due to dialysis nurse citing catheter malfunction Meanwhile continue management per ID, pulmonary , and psych. Meanwhile white blood cell count is rising. Patient blood pressure borderline low. Will check ABG Previously May 31 : I believe patient need dialysis treatment He however needs to competency assessment if can make decisions or not I will communicate with Dr. Mulligan Previously: Per pulmonary and ID advice Adjust blood pressure medication Renal diet Anemia work-up 2D echocardiogram refused Kidney ultrasound refused Jules catheter Urine studies Per orders Subjective ROS Limited/Unobtainable: Yes Objective Objective Last 24 Hour Vital Signs Date Time Temp Pulse Resp B/P (MAP) Pulse Ox O2 Delivery O2 Flow Rate FiO2 06/28/19 09:18 32 172/80 Mechanical Ventilator 30 06/28/19 09:13 106 33 30 06/28/19 07:45 30 06/28/19 07:43 103 36 30 06/28/19 07:43 100 06/28/19 07:11 101 26 100 Mechanical Ventilator 30 103 26 30 06/28/19 07:00 103 25 130/69 (89) 99 06/28/19 06:30 105 26 06/28/19 06:00 99.5 104 26 135/72 (93) 99 06/28/19 05:00 86 25 144/69 (94) 99 06/28/19 04:00 Mechanical Ventilator 06/28/19 04:00 89 06/28/19 04:00 89 24 136/68 (90) 100 06/28/19 04:00 30 06/28/19 03:30 84 26 100 Mechanical Ventilator 30 86 27 30 06/28/19 03:00 91 25 141/73 (95) 100 06/28/19 02:00 91 27 135/69 (91) 100 06/28/19 01:00 94 31 130/71 (90) 100 06/28/19 00:00 Mechanical Ventilator 06/28/19 00:00 99.7 103 23 142/68 (92) 100 06/27/19 23:30 106 28 100 Mechanical Ventilator 30 108 27 30 06/27/19 23:00 129/65 06/27/19 23:00 90 26 128/59 (82) 100 06/27/19 22:00 98 25 146/70 (95) 100 06/27/19 21:00 98.8 93 27 131/65 (87) 100 06/27/19 20:00 30 06/27/19 20:00 91 06/27/19 20:00 Mechanical Ventilator 06/27/19 20:00 94 26 144/65 (91) 99 06/27/19 19:30 94 27 100 Mechanical Ventilator 30 95 27 30 06/27/19 19:00 91 0 139/73 (95) 100 06/27/19 18:00 90 0 135/64 (87) 99 06/27/19 17:00 100 21 156/72 (100) 98 06/27/19 16:00 102 06/27/19 16:00 30 06/27/19 16:00 98.3 88 15 162/81 (108) 99 06/27/19 16:00 Mechanical Ventilator 06/27/19 15:00 83 22 159/72 (101) 98 06/27/19 14:30 87 26 100 Mechanical Ventilator 30 87 26 30 06/27/19 14:30 30 06/27/19 14:00 100 34 151/77 (101) 98 06/27/19 13:00 86 28 141/76 (97) 98 06/27/19 12:30 81 24 138/72 (94) 98 06/27/19 12:00 100 06/27/19 12:00 98.6 79 27 135/69 (91) 99 06/27/19 12:00 30 06/27/19 12:00 Mechanical Ventilator 06/27/19 11:23 82 27 100 Mechanical Ventilator 30 82 27 30 06/27/19 11:00 82 27 143/71 (95) 99 06/27/19 10:00 75 26 131/62 (85) 98 Intake and Output 06/27/19 06/28/19 18:59 06:59 Intake Total 345 ml 315 ml Output Total 100 ml 45 ml Balance 245 ml 270 ml Tube Feeding 245 ml 315 ml Other 100 ml Output Urine Total 100 ml 45 ml # Bowel Movements 1 2 Laboratory Tests 06/27/19 11:20: Arterial Blood pH 7.413, Arterial Blood Partial Pressure CO2 41.7, Arterial Blood Partial Pressure O2 104.3H, Arterial Blood HCO3 26.0, Arterial Blood Oxygen Saturation 97.9, Arterial Blood Base Excess 1.3, Kosta Test Positive 06/28/19 04:10: White Blood Count 13.0H, Red Blood Count 2.67L, Hemoglobin 7.9L, Hematocrit 25.2L, Mean Corpuscular Volume 94, Mean Corpuscular Hemoglobin 29.6, Mean Corpuscular Hemoglobin Concent 31.3L, Red Cell Distribution Width 19.0H, Platelet Count 365, Mean Platelet Volume 6.6, Neutrophils (%) (Auto) , Lymphocytes (%) (Auto) , Monocytes (%) (Auto) , Eosinophils (%) (Auto) , Basophils (%) (Auto) , Differential Total Cells Counted 100, Neutrophils % ( Manual) 84H, Lymphocytes % (Manual) 10L, Monocytes % (Manual) 5, Eosinophils % ( Manual) 1, Basophils % (Manual) 0, Band Neutrophils 0, Platelet Estimate Adequate, Platelet Morphology Normal, Polychromasia 1+, Hypochromasia 1+, Anisocytosis 1+, Sodium Level 138, Potassium Level 3.4L, Chloride Level 97L, Carbon Dioxide Level 26, Anion Gap 15, Blood Urea Nitrogen 61H, Creatinine 7.1#H , Estimat Glomerular Filtration Rate 7.8, Glucose Level 140H, Calcium Level 9.2# , Phosphorus Level 4.2, Magnesium Level 2.6H, Total Bilirubin 0.3, Aspartate Amino Transf (AST/SGOT) 22, Alanine Aminotransferase (ALT/SGPT) 7L, Alkaline Phosphatase 88, C-Reactive Protein, Quantitative 16.9H, Pro-B-Type Natriuretic Peptide > 85089T, Total Protein 7.6, Albumin 1.8L, Globulin 5.8, Albumin/ Globulin Ratio 0.3L Height (Feet): 6 Height (Inches): 1.00 Weight (Pounds): 242 General Appearance: no apparent distress EENT: other - Intubated on ventilator Neck: limited range of motion Cardiovascular: tachycardia Respiratory/Chest: decreased breath sounds Abdomen: distended Objective No change Fouladian,Mic MD June 28, 2019 09:43
--- NOTE | 2019-06-28 09:50 | Infectious Diseases Prog Note ---
Assessment/Plan Assessment/Plan IMPRESSION: 1. COVID19 pneumonia Positive: 05/27, 05/31 , 06/05, 06/09 ,06/17, 06/19, 06/23 2. MRSA carrier. 3. Chronic kidney disease , end-stage renal disease. 4. COPD. 5. Hypertension. 6. Anemia. 7. Hypothyroidism. 8. Hyperlipidemia. 9. Major depression. 10. Leukocytosis 11. Hypotension 12. Hepatitis C 13. Hyperuricemia 14. Diarrhea 15. septic shock 16. Leukocytosis improving RECOMMENDATIONS: Observe off of antibiotic Finished hydroxychloroquine. Will f/u COVID19 test Case was D/W RN Subjective ROS Limited/Unobtainable: Yes Allergies: Coded Allergies: No Known Allergies (Unverified , 05/28/19) Objective Vital Signs Last 24 Hour Vital Signs Date Time Temp Pulse Resp B/P (MAP) Pulse Ox O2 Delivery O2 Flow Rate FiO2 06/28/19 09:18 32 172/80 Mechanical Ventilator 30 06/28/19 09:13 106 33 30 06/28/19 07:45 30 06/28/19 07:43 103 36 30 06/28/19 07:43 100 06/28/19 07:11 101 26 100 Mechanical Ventilator 30 103 26 30 06/28/19 07:00 103 25 130/69 (89) 99 06/28/19 06:30 105 26 06/28/19 06:00 99.5 104 26 135/72 (93) 99 06/28/19 05:00 86 25 144/69 (94) 99 06/28/19 04:00 Mechanical Ventilator 06/28/19 04:00 89 06/28/19 04:00 89 24 136/68 (90) 100 06/28/19 04:00 30 06/28/19 03:30 84 26 100 Mechanical Ventilator 30 86 27 30 06/28/19 03:00 91 25 141/73 (95) 100 06/28/19 02:00 91 27 135/69 (91) 100 06/28/19 01:00 94 31 130/71 (90) 100 06/28/19 00:00 Mechanical Ventilator 06/28/19 00:00 99.7 103 23 142/68 (92) 100 06/27/19 23:30 106 28 100 Mechanical Ventilator 30 108 27 30 06/27/19 23:00 129/65 06/27/19 23:00 90 26 128/59 (82) 100 06/27/19 22:00 98 25 146/70 (95) 100 06/27/19 21:00 98.8 93 27 131/65 (87) 100 06/27/19 20:00 30 06/27/19 20:00 91 06/27/19 20:00 Mechanical Ventilator 06/27/19 20:00 94 26 144/65 (91) 99 06/27/19 19:30 94 27 100 Mechanical Ventilator 30 95 27 30 06/27/19 19:00 91 0 139/73 (95) 100 06/27/19 18:00 90 0 135/64 (87) 99 06/27/19 17:00 100 21 156/72 (100) 98 06/27/19 16:00 102 06/27/19 16:00 30 06/27/19 16:00 98.3 88 15 162/81 (108) 99 06/27/19 16:00 Mechanical Ventilator 06/27/19 15:00 83 22 159/72 (101) 98 06/27/19 14:30 87 26 100 Mechanical Ventilator 30 87 26 30 06/27/19 14:30 30 06/27/19 14:00 100 34 151/77 (101) 98 06/27/19 13:00 86 28 141/76 (97) 98 06/27/19 12:30 81 24 138/72 (94) 98 06/27/19 12:00 100 06/27/19 12:00 98.6 79 27 135/69 (91) 99 06/27/19 12:00 30 06/27/19 12:00 Mechanical Ventilator 06/27/19 11:23 82 27 100 Mechanical Ventilator 30 82 27 30 06/27/19 11:00 82 27 143/71 (95) 99 06/27/19 10:00 75 26 131/62 (85) 98 Height (Feet): 6 Height (Inches): 1.00 Weight (Pounds): 242 HEENT: mucous membranes moist, other - orally intubated Respiratory/Chest: other - on Ventilator, FIO2=30% Cardiovascular: tachycardia, other - Subclavian central line, Femoral HD line Abdomen: soft, non tender Extremities: no edema Neurologic/Psychiatric: unresponsiveness Laboratory Tests Test 06/27/19 11:20 06/28/19 04:10 Arterial Blood pH 7.413 (7.350-7.450) Arterial Blood Partial Pressure CO2 41.7 mmHg (35.0-45.0) Arterial Blood Partial Pressure O2 104.3 mmHg (75.0-100.0) H Arterial Blood HCO3 26.0 mmol/L (22.0-26.0) Arterial Blood Oxygen Saturation 97.9 % (95-100) Arterial Blood Base Excess 1.3 (-2-2) Kosta Test Positive White Blood Count 13.0 K/UL (4.8-10.8) H Red Blood Count 2.67 M/UL (4.70-6.10) L Hemoglobin 7.9 G/DL (14.2-18.0) L Hematocrit 25.2 % (42.0-52.0) L Mean Corpuscular Volume 94 FL (80-99) Mean Corpuscular Hemoglobin 29.6 PG (27.0-31.0) Mean Corpuscular Hemoglobin Concent 31.3 G/DL (32.0-36.0) L Red Cell Distribution Width 19.0 % (11.6-14.8) H Platelet Count 365 K/UL (150-450) Mean Platelet Volume 6.6 FL (6.5-10.1) Neutrophils (%) (Auto) % (45.0-75.0) Lymphocytes (%) (Auto) % (20.0-45.0) Monocytes (%) (Auto) % (1.0-10.0) Eosinophils (%) (Auto) % (0.0-3.0) Basophils (%) (Auto) % (0.0-2.0) Differential Total Cells Counted 100 Neutrophils % (Manual) 84 % (45-75) H Lymphocytes % (Manual) 10 % (20-45) L Monocytes % (Manual) 5 % (1-10) Eosinophils % (Manual) 1 % (0-3) Basophils % (Manual) 0 % (0-2) Band Neutrophils 0 % (0-8) Platelet Estimate Adequate Platelet Morphology Normal Polychromasia 1+ Hypochromasia 1+ Anisocytosis 1+ Sodium Level 138 MMOL/L (136-145) Potassium Level 3.4 MMOL/L (3.5-5.1) L Chloride Level 97 MMOL/L (98-107) L Carbon Dioxide Level 26 MMOL/L (21-32) Anion Gap 15 mmol/L (5-15) Blood Urea Nitrogen 61 mg/dL (7-18) H Creatinine 7.1 MG/DL (0.55-1.30) #H Estimat Glomerular Filtration Rate 7.8 mL/min (>60) Glucose Level 140 MG/DL (74-106) H Calcium Level 9.2 MG/DL (8.5-10.1) # Phosphorus Level 4.2 MG/DL (2.5-4.9) Magnesium Level 2.6 MG/DL (1.8-2.4) H Total Bilirubin 0.3 MG/DL (0.2-1.0) Aspartate Amino Transf (AST/SGOT) 22 U/L (15-37) Alanine Aminotransferase (ALT/SGPT) 7 U/L (12-78) L Alkaline Phosphatase 88 U/L (46-116) C-Reactive Protein, Quantitative 16.9 mg/dL (0.00-0.90) H Pro-B-Type Natriuretic Peptide > 85857 pg/mL (0-125) H Total Protein 7.6 G/DL (6.4-8.2) Albumin 1.8 G/DL (3.4-5.0) L Globulin 5.8 g/dL Albumin/Globulin Ratio 0.3 (1.0-2.7) L Current Medications Medications (Trade) Dose Ordered Sig/Anthony Route PRN Reason Start Time Stop Time Status Last Admin Dose Admin Acetaminophen (Tylenol) 650 mg Q4H PRN NG Temp >100.5 06/13/19 11:00 07/13/19 10:59 06/27/19 04:21 Albuterol Sulfate (Proventil MDI) 2 puff Q4HRT INH 06/06/19 23:00 08/30/19 18:59 06/28/19 07:19 Chlorhexidine Gluconate (Michelle-Hex 2%) 1 applic DAILY@1999 TOPIC 06/07/19 20:00 09/05/19 19:59 06/27/19 20:24 Dextrose (Dextrose 50%) 25 ml Q30M PRN IV Hypoglycemia 06/20/19 19:30 09/18/19 19:29 Dextrose (Dextrose 50%) 50 ml Q30M PRN IV Hypoglycemia 06/20/19 19:30 09/18/19 19:29 Docusate Sodium (Colace) 100 mg THREE TIMES A DAY NG 06/07/19 13:00 07/07/19 12:59 06/28/19 09:16 Dopamine HCl/ Dextrose 250 ml @ 0 mls/hr Q24H PRN IV For hypotension 06/13/19 08:15 09/11/19 08:14 Enoxaparin Sodium (Lovenox) 30 mg DAILY SUBQ 06/07/19 09:00 08/27/19 08:59 06/28/19 09:19 Epoetin Aftab (Epoetin Aftab(ESRD on dialysis)) 10,000 unit SUBQ 06/07/19 21:00 08/31/19 20:59 06/25/19 21:23 Fentanyl Citrate 250 ml @ 0 mls/hr Q24H IV 06/24/19 06:00 09/22/19 05:59 06/28/19 09:18 Hydralazine HCl (Apresoline) 10 mg Q4H PRN IV Blood pressure over 160 systol 06/07/19 10:15 09/05/19 10:14 Insulin Aspart (NovoLOG) EVERY 6 HOURS SUBQ 06/21/19 00:00 09/19/19 00:00 06/28/19 00:18 Metoclopramide HCl (Reglan) 5 mg Q8H PRN IVP Nausea & Vomiting 06/18/19 12:00 07/18/19 11:59 06/19/19 00:50 Midodrine (Pro-Amatine) 10 mg THREE TIMES A DAY NG 06/09/19 13:00 09/07/19 12:59 06/28/19 09:16 Norepinephrine Bitartrate 8 mg/ Dextrose 283 ml @ 0 mls/hr Q24H IV 06/23/19 23:00 07/23/19 22:59 06/25/19 14:38 Pantoprazole (Protonix) 40 mg DAILY IVP 06/19/19 09:00 07/19/19 08:59 06/28/19 09:16 Sevelamer Carbonate (Renvela) 1,600 mg Q8HR NG 06/25/19 22:00 09/05/19 12:59 06/28/19 06:03 Ted Leyva MD June 28, 2019 09:50
--- NOTE | 2019-06-28 10:09 | Cardiac Electrophysiology PN ---
Assessment/Plan Assessment/Plan 1. Elevated troponin. Troponin on May 27 and May 30 were negative, on June 01, it was elevated at 0.074. Repeat 0.05. Due to renal failure. On Aspirin. EF 60%. 2. S/P Septic shock. Off Levo 3. ESRD, on hemodialysis per Dr. Cole. 4. COVID-19 positive pneumonia. On the Vent with 30% Fio2. Fu by Dr. Mckeon. 5. MRSA carrier. 6. COPD. 7. Anemia. 8. Depression. DW RN Subjective Subjective Is Covid positive x 3 in isolation in ICU, intubated on 30% Fio2, PEEP 5. Off pressors. RN in the room Objective Last 24 Hour Vital Signs Date Time Temp Pulse Resp B/P (MAP) Pulse Ox O2 Delivery O2 Flow Rate FiO2 06/28/19 09:18 32 172/80 Mechanical Ventilator 30 06/28/19 09:13 106 33 30 06/28/19 07:45 30 06/28/19 07:43 103 36 30 06/28/19 07:43 100 06/28/19 07:11 101 26 100 Mechanical Ventilator 30 103 26 30 06/28/19 07:00 103 25 130/69 (89) 99 06/28/19 06:30 105 26 06/28/19 06:00 99.5 104 26 135/72 (93) 99 06/28/19 05:00 86 25 144/69 (94) 99 06/28/19 04:00 Mechanical Ventilator 06/28/19 04:00 89 06/28/19 04:00 89 24 136/68 (90) 100 06/28/19 04:00 30 06/28/19 03:30 84 26 100 Mechanical Ventilator 30 86 27 30 06/28/19 03:00 91 25 141/73 (95) 100 06/28/19 02:00 91 27 135/69 (91) 100 06/28/19 01:00 94 31 130/71 (90) 100 06/28/19 00:00 Mechanical Ventilator 06/28/19 00:00 99.7 103 23 142/68 (92) 100 06/27/19 23:30 106 28 100 Mechanical Ventilator 30 108 27 30 06/27/19 23:00 129/65 06/27/19 23:00 90 26 128/59 (82) 100 06/27/19 22:00 98 25 146/70 (95) 100 06/27/19 21:00 98.8 93 27 131/65 (87) 100 06/27/19 20:00 30 06/27/19 20:00 91 06/27/19 20:00 Mechanical Ventilator 06/27/19 20:00 94 26 144/65 (91) 99 06/27/19 19:30 94 27 100 Mechanical Ventilator 30 95 27 30 06/27/19 19:00 91 0 139/73 (95) 100 06/27/19 18:00 90 0 135/64 (87) 99 06/27/19 17:00 100 21 156/72 (100) 98 06/27/19 16:00 102 06/27/19 16:00 30 06/27/19 16:00 98.3 88 15 162/81 (108) 99 06/27/19 16:00 Mechanical Ventilator 06/27/19 15:00 83 22 159/72 (101) 98 06/27/19 14:30 87 26 100 Mechanical Ventilator 30 87 26 30 06/27/19 14:30 30 06/27/19 14:00 100 34 151/77 (101) 98 06/27/19 13:00 86 28 141/76 (97) 98 06/27/19 12:30 81 24 138/72 (94) 98 06/27/19 12:00 100 06/27/19 12:00 98.6 79 27 135/69 (91) 99 06/27/19 12:00 30 06/27/19 12:00 Mechanical Ventilator 06/27/19 11:23 82 27 100 Mechanical Ventilator 30 82 27 30 06/27/19 11:00 82 27 143/71 (95) 99 Intake and Output 06/27/19 06/28/19 19:00 07:00 Intake Total 380 ml 280 ml Output Total 100 ml 45 ml Balance 280 ml 235 ml Tube Feeding 280 ml 280 ml Other 100 ml Output Urine Total 100 ml 45 ml # Bowel Movements 1 2 Laboratory Tests Test 06/27/19 11:20 06/28/19 04:10 Arterial Blood pH 7.413 (7.350-7.450) Arterial Blood Partial Pressure CO2 41.7 mmHg (35.0-45.0) Arterial Blood Partial Pressure O2 104.3 mmHg (75.0-100.0) H Arterial Blood HCO3 26.0 mmol/L (22.0-26.0) Arterial Blood Oxygen Saturation 97.9 % (95-100) Arterial Blood Base Excess 1.3 (-2-2) Kosta Test Positive White Blood Count 13.0 K/UL (4.8-10.8) H Red Blood Count 2.67 M/UL (4.70-6.10) L Hemoglobin 7.9 G/DL (14.2-18.0) L Hematocrit 25.2 % (42.0-52.0) L Mean Corpuscular Volume 94 FL (80-99) Mean Corpuscular Hemoglobin 29.6 PG (27.0-31.0) Mean Corpuscular Hemoglobin Concent 31.3 G/DL (32.0-36.0) L Red Cell Distribution Width 19.0 % (11.6-14.8) H Platelet Count 365 K/UL (150-450) Mean Platelet Volume 6.6 FL (6.5-10.1) Neutrophils (%) (Auto) % (45.0-75.0) Lymphocytes (%) (Auto) % (20.0-45.0) Monocytes (%) (Auto) % (1.0-10.0) Eosinophils (%) (Auto) % (0.0-3.0) Basophils (%) (Auto) % (0.0-2.0) Differential Total Cells Counted 100 Neutrophils % (Manual) 84 % (45-75) H Lymphocytes % (Manual) 10 % (20-45) L Monocytes % (Manual) 5 % (1-10) Eosinophils % (Manual) 1 % (0-3) Basophils % (Manual) 0 % (0-2) Band Neutrophils 0 % (0-8) Platelet Estimate Adequate Platelet Morphology Normal Polychromasia 1+ Hypochromasia 1+ Anisocytosis 1+ Sodium Level 138 MMOL/L (136-145) Potassium Level 3.4 MMOL/L (3.5-5.1) L Chloride Level 97 MMOL/L (98-107) L Carbon Dioxide Level 26 MMOL/L (21-32) Anion Gap 15 mmol/L (5-15) Blood Urea Nitrogen 61 mg/dL (7-18) H Creatinine 7.1 MG/DL (0.55-1.30) #H Estimat Glomerular Filtration Rate 7.8 mL/min (>60) Glucose Level 140 MG/DL (74-106) H Calcium Level 9.2 MG/DL (8.5-10.1) # Phosphorus Level 4.2 MG/DL (2.5-4.9) Magnesium Level 2.6 MG/DL (1.8-2.4) H Total Bilirubin 0.3 MG/DL (0.2-1.0) Aspartate Amino Transf (AST/SGOT) 22 U/L (15-37) Alanine Aminotransferase (ALT/SGPT) 7 U/L (12-78) L Alkaline Phosphatase 88 U/L (46-116) C-Reactive Protein, Quantitative 16.9 mg/dL (0.00-0.90) H Pro-B-Type Natriuretic Peptide > 49913 pg/mL (0-125) H Total Protein 7.6 G/DL (6.4-8.2) Albumin 1.8 G/DL (3.4-5.0) L Globulin 5.8 g/dL Albumin/Globulin Ratio 0.3 (1.0-2.7) L Objective HEAD AND NECK: No JVD. Orally intubated LUNGS: Decreased breath sounds. CARDIOVASCULAR: Regular S1 and S2. Tachycardic. ABDOMEN: Soft. EXTREMITIES: No pitting edema. New Left [facility] iGo Engle MD June 28, 2019 10:09
--- NOTE | 2019-06-28 10:56 | Hematology/Onc Progress Note ---
Assessment/Plan Assessment/Plan Assessment and Recs: # Anemia of chronic disease, likely related ot underlying kidney disease has COIVD19++ --> hgb trend 9-->8-->7.3-->7.9-->6.8->9.5-->10->8.3-->7.7-->7.1-->8.9->8.8->7.7 -->8.1 ->7.9 --> transfuse as needed, hgb goal >7 --> no evidence of hemolysis --> peripheral smear has been reviewed --> epogen started three x a week ==>> transfuse w 2 units 06/08, 06/15, # Leukocytosis likely related to suspected COVID-19 virus infection --> completed plaquenil --> trend smear as needed --> initially 4-->11-->14.5-->21-->26-->21->24--.28-->23-->19-->16.2-->21--> 11.2 --> pulm is aware --> on abx cefepime/vanc->zosyn/vanc-->off --> pressors as needed # Thrombocytopenia/Lymphopenia --> likely related to covid19 --> plt 129k-->186k-->251--285 # Respiratory failure with covid19+ --> s/p vent # Possible Pneumonia --> abx given --> on zosyn and vanc # Cardiomegaly # Transaminitis with Elevated AST # COPD # Chronic Kidney Disease --> per renal hd # Hypertension # Dvt ppx lovenox Appreciate consultation and ernesto Rn Subjective Allergies: Coded Allergies: No Known Allergies (Unverified , 05/28/19) All Systems: reviewed and negative except above Subjective 06/01 nv, extremely agitated, not allowing labs draws, no night sweats, cbc ordered 06/02 confused, restraints, on abx and plaquenil, hgb 7.9, nrb 15 L 06/03 is with nonrebreather, but not compliant, remains confused 06/05 no bleeding, labs noted, no major bleeding, otherwise comfortable 06/06 labs reviewed, no bleeding, meds noted, no night sweats, on levo and nonrebreather 06/07 labs noted, no bleeding, meds reviewed, no bleeding, wbc higher 06/08 to get 2 units prbc, no night sweats, meds reviewed 06/09 is on cefepime and vanc, labs noted, ernesto Rn, no bleeding 06/10 no major changes, labs reviewed, wbc 28k, on abx, cefepime 06/12 remains in icu, labs noted, no night sweats or bleeding 06/13 sluggish pupils, remains agitated, per psych, no bleding, on vent, wbc sitll high 06/14 still confused, remains on vent, with ng, running nepro, on pressors 06/15 icu, febrile, non verbal, hgb 7.1, blood pending, completed plaq 06/16 remains in the icu, nonverbal, plan for hd tomorrow, ernesto rn 06/17 in icu, on pressor, nonverbal, on abx, no bleeding 06/19 no bleeding, nonverbal in icu, hgb is 7.7 06/20 on zosyn, tube feeds, vent, labs noted, in icu, nv 06/21 gettng hd as per renal, in icu, nv, no bleeding, tfs 06/22 icu, cxr with slight improvement, cooling blanket, weaning today 06/23 wewaning, in icu, on vent, abx, and pressors as needed, labs noted 06/24 failed weaning, off abx, completed plaquenil, hgb 8.1 06/26 icu, weaning for this am, afebrile, hgb 8 06/27 in icu, remains comotose, weaning started on peep, no night sweats Objective Objective Current Medications Medications (Trade) Dose Ordered Sig/Anthony Route PRN Reason Start Time Stop Time Status Last Admin Dose Admin Acetaminophen (Tylenol) 650 mg Q4H PRN NG Temp >100.5 06/13/19 11:00 07/13/19 10:59 06/27/19 04:21 Albuterol Sulfate (Proventil MDI) 2 puff Q4HRT INH 06/06/19 23:00 08/30/19 18:59 06/28/19 07:19 Chlorhexidine Gluconate (Michelle-Hex 2%) 1 applic DAILY@1999 TOPIC 06/07/19 20:00 09/05/19 19:59 06/27/19 20:24 Dextrose (Dextrose 50%) 25 ml Q30M PRN IV Hypoglycemia 06/20/19 19:30 09/18/19 19:29 Dextrose (Dextrose 50%) 50 ml Q30M PRN IV Hypoglycemia 06/20/19 19:30 09/18/19 19:29 Docusate Sodium (Colace) 100 mg THREE TIMES A DAY NG 06/07/19 13:00 07/07/19 12:59 06/28/19 09:16 Dopamine HCl/ Dextrose 250 ml @ 0 mls/hr Q24H PRN IV For hypotension 06/13/19 08:15 09/11/19 08:14 Enoxaparin Sodium (Lovenox) 30 mg DAILY SUBQ 06/07/19 09:00 08/27/19 08:59 06/28/19 09:19 Epoetin Aftab (Epoetin Aftab(ESRD on dialysis)) 10,000 unit SUBQ 06/07/19 21:00 08/31/19 20:59 06/25/19 21:23 Fentanyl Citrate 250 ml @ 0 mls/hr Q24H IV 06/24/19 06:00 09/22/19 05:59 06/28/19 09:18 Hydralazine HCl (Apresoline) 10 mg Q4H PRN IV Blood pressure over 160 systol 06/07/19 10:15 09/05/19 10:14 Insulin Aspart (NovoLOG) EVERY 6 HOURS SUBQ 06/21/19 00:00 09/19/19 00:00 06/28/19 00:18 Metoclopramide HCl (Reglan) 5 mg Q8H PRN IVP Nausea & Vomiting 06/18/19 12:00 07/18/19 11:59 06/19/19 00:50 Midodrine (Pro-Amatine) 10 mg THREE TIMES A DAY NG 06/09/19 13:00 09/07/19 12:59 06/28/19 09:16 Norepinephrine Bitartrate 8 mg/ Dextrose 283 ml @ 0 mls/hr Q24H IV 06/23/19 23:00 07/23/19 22:59 06/25/19 14:38 Pantoprazole (Protonix) 40 mg DAILY IVP 06/19/19 09:00 07/19/19 08:59 06/28/19 09:16 Sevelamer Carbonate (Renvela) 1,600 mg Q8HR NG 06/25/19 22:00 09/05/19 12:59 06/28/19 06:03 Last 24 Hour Vital Signs Date Time Temp Pulse Resp B/P (MAP) Pulse Ox O2 Delivery O2 Flow Rate FiO2 06/28/19 09:18 32 172/80 Mechanical Ventilator 30 06/28/19 09:13 106 33 30 06/28/19 08:00 Mechanical Ventilator 06/28/19 07:45 30 06/28/19 07:43 103 36 30 06/28/19 07:43 100 06/28/19 07:11 101 26 100 Mechanical Ventilator 30 103 26 30 06/28/19 07:00 103 25 130/69 (89) 99 06/28/19 06:30 105 26 06/28/19 06:00 99.5 104 26 135/72 (93) 99 06/28/19 05:00 86 25 144/69 (94) 99 06/28/19 04:00 Mechanical Ventilator 06/28/19 04:00 89 06/28/19 04:00 89 24 136/68 (90) 100 06/28/19 04:00 30 06/28/19 03:30 84 26 100 Mechanical Ventilator 30 86 27 30 06/28/19 03:00 91 25 141/73 (95) 100 06/28/19 02:00 91 27 135/69 (91) 100 06/28/19 01:00 94 31 130/71 (90) 100 06/28/19 00:00 Mechanical Ventilator 06/28/19 00:00 99.7 103 23 142/68 (92) 100 06/27/19 23:30 106 28 100 Mechanical Ventilator 30 108 27 30 06/27/19 23:00 129/65 06/27/19 23:00 90 26 128/59 (82) 100 06/27/19 22:00 98 25 146/70 (95) 100 06/27/19 21:00 98.8 93 27 131/65 (87) 100 06/27/19 20:00 30 06/27/19 20:00 91 06/27/19 20:00 Mechanical Ventilator 06/27/19 20:00 94 26 144/65 (91) 99 06/27/19 19:30 94 27 100 Mechanical Ventilator 30 95 27 30 06/27/19 19:00 91 0 139/73 (95) 100 06/27/19 18:00 90 0 135/64 (87) 99 06/27/19 17:00 100 21 156/72 (100) 98 06/27/19 16:00 102 06/27/19 16:00 30 06/27/19 16:00 98.3 88 15 162/81 (108) 99 06/27/19 16:00 Mechanical Ventilator 06/27/19 15:00 83 22 159/72 (101) 98 06/27/19 14:30 87 26 100 Mechanical Ventilator 30 87 26 30 06/27/19 14:30 30 06/27/19 14:00 100 34 151/77 (101) 98 06/27/19 13:00 86 28 141/76 (97) 98 06/27/19 12:30 81 24 138/72 (94) 98 06/27/19 12:00 100 06/27/19 12:00 98.6 79 27 135/69 (91) 99 06/27/19 12:00 30 06/27/19 12:00 Mechanical Ventilator 06/27/19 11:23 82 27 100 Mechanical Ventilator 30 82 27 30 06/27/19 11:00 82 27 143/71 (95) 99 06/27/19 10:00 75 26 131/62 (85) 98 06/27/19 09:20 81 25 30 06/27/19 09:00 75 25 131/70 (90) 99 06/27/19 08:30 79 24 135/62 (86) 99 06/27/19 08:00 Mechanical Ventilator 06/27/19 08:00 81 06/27/19 08:00 98.3 86 21 141/78 (99) 99 06/27/19 07:10 100 06/27/19 07:06 84 25 100 Mechanical Ventilator 30 85 25 30 30 06/27/19 07:03 82 35 151/66 (94) 100 06/27/19 07:00 90 20 154/77 (102) 100 06/27/19 07:00 30 06/27/19 06:30 98 25 06/27/19 06:00 98.6 87 26 130/61 (84) 100 5/17/20 05:30 80 26 118/63 (81) 100 06/27/19 05:08 99.6 06/27/19 05:00 94 26 150/70 (96) 100 06/27/19 04:30 91 26 148/68 (94) 99 06/27/19 04:00 Mechanical Ventilator 06/27/19 04:00 87 06/27/19 04:00 30 06/27/19 04:00 100.0 72 26 107/57 (74) 100 06/27/19 03:30 91 26 144/59 (87) 99 06/27/19 03:23 73 26 100 Mechanical Ventilator 30 77 26 30 06/27/19 03:00 26 120/85 Mechanical Ventilator 30 06/27/19 03:00 69 26 124/57 (79) 100 06/27/19 02:30 67 26 107/54 (71) 100 06/27/19 02:00 70 26 105/52 (69) 100 06/27/19 02:00 26 105/52 Mechanical Ventilator 30 06/27/19 01:00 26 103/52 Mechanical Ventilator 30 06/27/19 01:00 73 26 99/53 (68) 100 06/27/19 00:30 77 26 110/60 (77) 100 06/27/19 00:00 Mechanical Ventilator 06/27/19 00:00 92 06/27/19 00:00 30 06/27/19 00:00 26 123/65 Mechanical Ventilator 30 06/27/19 00:00 76 26 98/55 (69) 100 06/26/19 23:30 86 26 98/53 (68) 100 06/26/19 23:00 87 10 134/76 (95) 99 06/26/19 23:00 26 134/76 Mechanical Ventilator 30 06/26/19 22:59 85 26 100 Mechanical Ventilator 30 86 26 30 06/26/19 22:00 116 35 160/76 (104) 99 06/26/19 22:00 26 160/76 Mechanical Ventilator 30 06/26/19 21:34 26 163/85 30 06/26/19 21:00 26 139/77 Mechanical Ventilator 30 06/26/19 21:00 88 26 139/77 (97) 99 06/26/19 20:00 99.4 86 26 113/59 (77) 99 06/26/19 20:00 Mechanical Ventilator 06/26/19 20:00 96 06/26/19 20:00 26 125/80 Mechanical Ventilator 30 06/26/19 20:00 30 06/26/19 19:30 83 27 100 Mechanical Ventilator 30 85 28 30 06/26/19 19:00 103 26 134/67 (89) 100 06/26/19 19:00 26 134/67 Mechanical Ventilator 30 06/26/19 18:00 82 21 103/60 (74) 100 06/26/19 18:00 21 103/60 Mechanical Ventilator 30 06/26/19 17:00 91 23 104/62 (76) 100 06/26/19 17:00 23 104/62 Mechanical Ventilator 30 06/26/19 16:30 95 26 160/81 (107) 99 06/26/19 16:00 23 137/65 Mechanical Ventilator 30 06/26/19 16:00 105 23 137/65 (89) 100 06/26/19 16:00 93 06/26/19 16:00 Mechanical Ventilator 06/26/19 16:00 30 06/26/19 15:20 89 26 100 Mechanical Ventilator 30 88 26 30 06/26/19 15:00 26 109/72 Mechanical Ventilator 30 06/26/19 15:00 26 109/72 Mechanical Ventilator 30 06/26/19 15:00 92 26 109/72 (84) 99 06/26/19 14:15 104 27 140/69 (92) 100 06/26/19 14:00 28 125/77 Mechanical Ventilator 30 06/26/19 14:00 109 28 125/77 (93) 100 06/26/19 13:30 39 138/81 Mechanical Ventilator 30 06/26/19 13:00 135/84 06/26/19 13:00 127 39 135/84 (101) 100 06/26/19 12:30 135 32 112/74 (87) 99 06/26/19 12:15 137 32 118/71 (87) 99 06/26/19 12:00 127 06/26/19 12:00 98.9 136 33 96/76 (83) 97 06/26/19 12:00 96/76 06/26/19 12:00 30 06/26/19 12:00 Mechanical Ventilator 06/26/19 11:00 125 27 117/98 (104) 99 06/26/19 11:00 117/98 Intake and Output 06/27/19 06/28/19 19:00 07:00 Intake Total 380 ml 280 ml Output Total 100 ml 45 ml Balance 280 ml 235 ml Tube Feeding 280 ml 280 ml Other 100 ml Output Urine Total 100 ml 45 ml # Bowel Movements 1 2 Labs Test 06/26/19 04:00 06/27/19 04:00 06/27/19 06:50 06/27/19 11:20 White Blood Count 13.6 K/UL (4.8-10.8) 13.3 K/UL (4.8-10.8) Red Blood Count 2.63 M/UL (4.70-6.10) 2.55 M/UL (4.70-6.10) Hemoglobin 7.9 G/DL (14.2-18.0) 8.0 G/DL (14.2-18.0) Hematocrit 24.6 % (42.0-52.0) 23.5 % (42.0-52.0) Mean Corpuscular Volume 93 FL (80-99) 92 FL (80-99) Mean Corpuscular Hemoglobin 29.9 PG (27.0-31.0) 31.4 PG (27.0-31.0) Mean Corpuscular Hemoglobin Concent 32.0 G/DL (32.0-36.0) 34.1 G/DL (32.0-36.0) Red Cell Distribution Width 18.4 % (11.6-14.8) 18.0 % (11.6-14.8) Platelet Count 319 K/UL (150-450) 326 K/UL (150-450) Mean Platelet Volume 6.8 FL (6.5-10.1) 7.4 FL (6.5-10.1) Neutrophils (%) (Auto) % (45.0-75.0) % (45.0-75.0) Lymphocytes (%) (Auto) % (20.0-45.0) % (20.0-45.0) Monocytes (%) (Auto) % (1.0-10.0) % (1.0-10.0) Eosinophils (%) (Auto) % (0.0-3.0) % (0.0-3.0) Basophils (%) (Auto) % (0.0-2.0) % (0.0-2.0) Differential Total Cells Counted 100 100 Neutrophils % (Manual) 82 % (45-75) 79 % (45-75) Lymphocytes % (Manual) 9 % (20-45) 14 % (20-45) Monocytes % (Manual) 8 % (1-10) 6 % (1-10) Eosinophils % (Manual) 1 % (0-3) 1 % (0-3) Basophils % (Manual) 0 % (0-2) 0 % (0-2) Band Neutrophils 0 % (0-8) 0 % (0-8) Platelet Estimate Adequate Adequate Platelet Morphology Normal Normal Polychromasia 1+ 1+ Hypochromasia 1+ 1+ Anisocytosis 1+ 1+ Sodium Level 136 MMOL/L (136-145) 140 MMOL/L (136-145) Potassium Level 3.2 MMOL/L (3.5-5.1) 4.5 MMOL/L (3.5-5.1) Chloride Level 96 MMOL/L (98-107) 106 MMOL/L (98-107) Carbon Dioxide Level 25 MMOL/L (21-32) 25 MMOL/L (21-32) Blood Urea Nitrogen 57 mg/dL (7-18) 54 mg/dL (7-18) Creatinine 6.8 MG/DL (0.55-1.30) 2.7 MG/DL (0.55-1.30) Estimat Glomerular Filtration Rate 8.2 mL/min (>60) 23.8 mL/min (>60) Glucose Level 135 MG/DL (74-106) 188 MG/DL (74-106) Calcium Level 8.5 MG/DL (8.5-10.1) 7.4 MG/DL (8.5-10.1) Phosphorus Level 3.7 MG/DL (2.5-4.9) 4.5 MG/DL (2.5-4.9) Magnesium Level 2.2 MG/DL (1.8-2.4) 2.9 MG/DL (1.8-2.4) Total Bilirubin 0.3 MG/DL (0.2-1.0) 0.4 MG/DL (0.2-1.0) Aspartate Amino Transf (AST/SGOT) 20 U/L (15-37) 32 U/L (15-37) Alanine Aminotransferase (ALT/SGPT) 8 U/L (12-78) 26 U/L (12-78) Alkaline Phosphatase 79 U/L (46-116) 169 U/L (46-116) Total Protein 7.1 G/DL (6.4-8.2) 6.1 G/DL (6.4-8.2) Albumin 1.5 G/DL (3.4-5.0) 1.8 G/DL (3.4-5.0) Globulin 5.6 g/dL 4.3 g/dL Albumin/Globulin Ratio 0.3 (1.0-2.7) 0.4 (1.0-2.7) Anion Gap 9 mmol/L (5-15) Arterial Blood pH 7.413 (7.350-7.450) Arterial Blood Partial Pressure CO2 41.7 mmHg (35.0-45.0) Arterial Blood Partial Pressure O2 104.3 mmHg (75.0-100.0) Arterial Blood HCO3 26.0 mmol/L (22.0-26.0) Arterial Blood Oxygen Saturation 97.9 % (95-100) Arterial Blood Base Excess 1.3 (-2-2) Kosta Test Positive Test 06/28/19 04:10 White Blood Count 13.0 K/UL (4.8-10.8) Red Blood Count 2.67 M/UL (4.70-6.10) Hemoglobin 7.9 G/DL (14.2-18.0) Hematocrit 25.2 % (42.0-52.0) Mean Corpuscular Volume 94 FL (80-99) Mean Corpuscular Hemoglobin 29.6 PG (27.0-31.0) Mean Corpuscular Hemoglobin Concent 31.3 G/DL (32.0-36.0) Red Cell Distribution Width 19.0 % (11.6-14.8) Platelet Count 365 K/UL (150-450) Mean Platelet Volume 6.6 FL (6.5-10.1) Neutrophils (%) (Auto) % (45.0-75.0) Lymphocytes (%) (Auto) % (20.0-45.0) Monocytes (%) (Auto) % (1.0-10.0) Eosinophils (%) (Auto) % (0.0-3.0) Basophils (%) (Auto) % (0.0-2.0) Differential Total Cells Counted 100 Neutrophils % (Manual) 84 % (45-75) Lymphocytes % (Manual) 10 % (20-45) Monocytes % (Manual) 5 % (1-10) Eosinophils % (Manual) 1 % (0-3) Basophils % (Manual) 0 % (0-2) Band Neutrophils 0 % (0-8) Platelet Estimate Adequate Platelet Morphology Normal Polychromasia 1+ Hypochromasia 1+ Anisocytosis 1+ Sodium Level 138 MMOL/L (136-145) Potassium Level 3.4 MMOL/L (3.5-5.1) Chloride Level 97 MMOL/L (98-107) Carbon Dioxide Level 26 MMOL/L (21-32) Anion Gap 15 mmol/L (5-15) Blood Urea Nitrogen 61 mg/dL (7-18) Creatinine 7.1 MG/DL (0.55-1.30) Estimat Glomerular Filtration Rate 7.8 mL/min (>60) Glucose Level 140 MG/DL (74-106) Calcium Level 9.2 MG/DL (8.5-10.1) Phosphorus Level 4.2 MG/DL (2.5-4.9) Magnesium Level 2.6 MG/DL (1.8-2.4) Total Bilirubin 0.3 MG/DL (0.2-1.0) Aspartate Amino Transf (AST/SGOT) 22 U/L (15-37) Alanine Aminotransferase (ALT/SGPT) 7 U/L (12-78) Alkaline Phosphatase 88 U/L (46-116) C-Reactive Protein, Quantitative 16.9 mg/dL (0.00-0.90) Pro-B-Type Natriuretic Peptide > 50602 pg/mL (0-125) Total Protein 7.6 G/DL (6.4-8.2) Albumin 1.8 G/DL (3.4-5.0) Globulin 5.8 g/dL Albumin/Globulin Ratio 0.3 (1.0-2.7) Height (Feet): 6 Height (Inches): 1.00 Weight (Pounds): 242 Objective Sp02 EP Interpretation: reviewed General: nv, confused, sedated Heent: bilateral eye normal inspection, bilateral eye PERRL ++Ng Respiratory: normal breath sounds, no respiratory distress, intubated+++ Cardiovascular: regular rate, rhythm, no edema Gastrointestinal: normal inspection, soft, non-distended Rectal: deferred Musculoskeletal: normal range of motion, non-tender Neurologic: alert, motor strength/tone normal, sensory intact, responsive, speech normal Skin: Decubitus/Ulcer - See RN skin exam. : jamaal+ Greg Cabral MD June 28, 2019 10:56
--- NOTE | 2019-06-28 11:48 | General Progress Note ---
Assessment/Plan Status: unchanged Assessment/Plan: 1. Diabetes. 2. Hypertension. 3. Coronary artery disease. 4. COPD. 5. Psychiatric disorder with schizophrenia. 6. History of hepatitis C. 7. HLP. 8. Chronic kidney disease, now with acute renal failure. 9. Anemia. 10. Hypothyroidism. 11. Spinal stenosis. 12. Constipation. 13. GERD. 14. COVID positive HD per nephrology TF recent labs and notes reviewed stable H&H will fu Subjective ROS Limited/Unobtainable: No Allergies: Coded Allergies: No Known Allergies (Unverified , 05/28/19) Objective Last 24 Hour Vital Signs Date Time Temp Pulse Resp B/P (MAP) Pulse Ox O2 Delivery O2 Flow Rate FiO2 06/28/19 11:00 85 26 127/62 (83) 99 06/28/19 11:00 26 127/62 Mechanical Ventilator 30 06/28/19 10:30 92 26 118/63 (81) 99 06/28/19 10:00 26 124/72 Mechanical Ventilator 30 06/28/19 10:00 99 26 124/72 (89) 99 06/28/19 09:30 106 29 125/71 (89) 98 06/28/19 09:18 32 172/80 Mechanical Ventilator 30 06/28/19 09:15 30 06/28/19 09:13 106 33 30 06/28/19 09:00 122 38 172/80 (110) 98 06/28/19 08:00 99.1 108 36 141/73 (95) 98 06/28/19 08:00 Mechanical Ventilator 06/28/19 07:45 30 06/28/19 07:43 103 36 30 06/28/19 07:43 100 06/28/19 07:11 101 26 100 Mechanical Ventilator 30 103 26 30 06/28/19 07:00 103 25 130/69 (89) 99 06/28/19 06:30 105 26 06/28/19 06:00 99.5 104 26 135/72 (93) 99 06/28/19 05:00 86 25 144/69 (94) 99 06/28/19 04:00 Mechanical Ventilator 06/28/19 04:00 89 06/28/19 04:00 89 24 136/68 (90) 100 06/28/19 04:00 30 06/28/19 03:30 84 26 100 Mechanical Ventilator 30 86 27 30 06/28/19 03:00 91 25 141/73 (95) 100 06/28/19 02:00 91 27 135/69 (91) 100 06/28/19 01:00 94 31 130/71 (90) 100 06/28/19 00:00 Mechanical Ventilator 06/28/19 00:00 99.7 103 23 142/68 (92) 100 06/27/19 23:30 106 28 100 Mechanical Ventilator 30 108 27 30 06/27/19 23:00 129/65 06/27/19 23:00 90 26 128/59 (82) 100 06/27/19 22:00 98 25 146/70 (95) 100 06/27/19 21:00 98.8 93 27 131/65 (87) 100 06/27/19 20:00 30 06/27/19 20:00 91 06/27/19 20:00 Mechanical Ventilator 06/27/19 20:00 94 26 144/65 (91) 99 06/27/19 19:30 94 27 100 Mechanical Ventilator 30 95 27 30 06/27/19 19:00 91 0 139/73 (95) 100 06/27/19 18:00 90 0 135/64 (87) 99 06/27/19 17:00 100 21 156/72 (100) 98 06/27/19 16:00 102 06/27/19 16:00 30 06/27/19 16:00 98.3 88 15 162/81 (108) 99 06/27/19 16:00 Mechanical Ventilator 06/27/19 15:00 83 22 159/72 (101) 98 06/27/19 14:30 87 26 100 Mechanical Ventilator 30 87 26 30 06/27/19 14:30 30 06/27/19 14:00 100 34 151/77 (101) 98 06/27/19 13:00 86 28 141/76 (97) 98 06/27/19 12:30 81 24 138/72 (94) 98 06/27/19 12:00 100 06/27/19 12:00 98.6 79 27 135/69 (91) 99 06/27/19 12:00 30 06/27/19 12:00 Mechanical Ventilator Intake and Output 06/27/19 06/28/19 19:00 07:00 Intake Total 380 ml 280 ml Output Total 100 ml 45 ml Balance 280 ml 235 ml Tube Feeding 280 ml 280 ml Other 100 ml Output Urine Total 100 ml 45 ml # Bowel Movements 1 2 Laboratory Tests 06/28/19 04:10: White Blood Count 13.0H, Red Blood Count 2.67L, Hemoglobin 7.9L, Hematocrit 25.2L, Mean Corpuscular Volume 94, Mean Corpuscular Hemoglobin 29.6, Mean Corpuscular Hemoglobin Concent 31.3L, Red Cell Distribution Width 19.0H, Platelet Count 365, Mean Platelet Volume 6.6, Neutrophils (%) (Auto) , Lymphocytes (%) (Auto) , Monocytes (%) (Auto) , Eosinophils (%) (Auto) , Basophils (%) (Auto) , Differential Total Cells Counted 100, Neutrophils % ( Manual) 84H, Lymphocytes % (Manual) 10L, Monocytes % (Manual) 5, Eosinophils % ( Manual) 1, Basophils % (Manual) 0, Band Neutrophils 0, Platelet Estimate Adequate, Platelet Morphology Normal, Polychromasia 1+, Hypochromasia 1+, Anisocytosis 1+, Sodium Level 138, Potassium Level 3.4L, Chloride Level 97L, Carbon Dioxide Level 26, Anion Gap 15, Blood Urea Nitrogen 61H, Creatinine 7.1#H , Estimat Glomerular Filtration Rate 7.8, Glucose Level 140H, Calcium Level 9.2# , Phosphorus Level 4.2, Magnesium Level 2.6H, Total Bilirubin 0.3, Aspartate Amino Transf (AST/SGOT) 22, Alanine Aminotransferase (ALT/SGPT) 7L, Alkaline Phosphatase 88, C-Reactive Protein, Quantitative 16.9H, Pro-B-Type Natriuretic Peptide > 71420W, Total Protein 7.6, Albumin 1.8L, Globulin 5.8, Albumin/ Globulin Ratio 0.3L Height (Feet): 6 Height (Inches): 1.00 Weight (Pounds): 242 General Appearance: no apparent distress EENT: normal ENT inspection Neck: supple Cardiovascular: normal rate Respiratory/Chest: decreased breath sounds Abdomen: normal bowel sounds, non tender, soft Extremities: non-tender Marito Ramires MD June 28, 2019 11:48
--- NOTE | 2019-06-28 18:53 | Surgery Progress Note ---
Surgery Progress Note Subjective Procedure Performed Right femoral temporary hemodialysis catheter insertion Additional Comments labs reviewed ill appearing on support Objective Last 24 Hour Vital Signs Date Time Temp Pulse Resp B/P (MAP) Pulse Ox O2 Delivery O2 Flow Rate FiO2 06/28/19 17:00 89 26 149/66 (93) 99 06/28/19 17:00 26 149/66 Mechanical Ventilator 30 06/28/19 16:30 79 25 149/77 (101) 99 06/28/19 16:00 30 06/28/19 16:00 26 127/61 Mechanical Ventilator 30 06/28/19 16:00 Mechanical Ventilator 06/28/19 16:00 99.2 73 26 127/61 (83) 99 06/28/19 15:30 73 26 119/66 (83) 99 06/28/19 15:08 70 26 30 06/28/19 15:00 83 25 147/69 (95) 99 06/28/19 15:00 26 147/69 Mechanical Ventilator 30 06/28/19 14:30 83 26 148/68 (94) 100 06/28/19 14:00 77 26 142/70 (94) 100 06/28/19 14:00 26 142/70 Mechanical Ventilator 30 06/28/19 13:30 88 26 139/64 (89) 100 06/28/19 13:00 26 130/61 Mechanical Ventilator 30 06/28/19 13:00 76 26 130/61 (84) 100 06/28/19 12:30 76 26 128/58 (81) 100 06/28/19 12:00 99.4 77 26 125/58 (80) 99 06/28/19 12:00 26 125/58 Mechanical Ventilator 30 06/28/19 12:00 Mechanical Ventilator 06/28/19 12:00 74 06/28/19 11:49 87 26 100 Mechanical Ventilator 30 90 26 30 06/28/19 11:00 85 26 127/62 (83) 99 06/28/19 11:00 26 127/62 Mechanical Ventilator 30 06/28/19 10:30 92 26 118/63 (81) 99 06/28/19 10:00 26 124/72 Mechanical Ventilator 30 06/28/19 10:00 99 26 124/72 (89) 99 06/28/19 09:30 106 29 125/71 (89) 98 06/28/19 09:18 32 172/80 Mechanical Ventilator 30 06/28/19 09:15 30 06/28/19 09:13 106 33 30 06/28/19 09:00 122 38 172/80 (110) 98 06/28/19 08:00 102 06/28/19 08:00 99.1 108 36 141/73 (95) 98 06/28/19 08:00 Mechanical Ventilator 06/28/19 07:45 30 06/28/19 07:43 103 36 30 06/28/19 07:43 100 06/28/19 07:11 101 26 100 Mechanical Ventilator 30 103 26 30 06/28/19 07:00 103 25 130/69 (89) 99 06/28/19 06:30 105 26 06/28/19 06:00 99.5 104 26 135/72 (93) 99 06/28/19 05:00 86 25 144/69 (94) 99 06/28/19 04:00 Mechanical Ventilator 06/28/19 04:00 89 06/28/19 04:00 89 24 136/68 (90) 100 06/28/19 04:00 30 06/28/19 03:30 84 26 100 Mechanical Ventilator 30 86 27 30 06/28/19 03:00 91 25 141/73 (95) 100 06/28/19 02:00 91 27 135/69 (91) 100 06/28/19 01:00 94 31 130/71 (90) 100 06/28/19 00:00 Mechanical Ventilator 06/28/19 00:00 99.7 103 23 142/68 (92) 100 06/27/19 23:30 106 28 100 Mechanical Ventilator 30 108 27 30 06/27/19 23:00 129/65 06/27/19 23:00 90 26 128/59 (82) 100 06/27/19 22:00 98 25 146/70 (95) 100 06/27/19 21:00 98.8 93 27 131/65 (87) 100 06/27/19 20:00 30 06/27/19 20:00 91 06/27/19 20:00 Mechanical Ventilator 06/27/19 20:00 94 26 144/65 (91) 99 06/27/19 19:30 94 27 100 Mechanical Ventilator 30 95 27 30 06/27/19 19:00 91 0 139/73 (95) 100 I&O Intake and Output 06/27/19 06/28/19 19:00 07:00 Intake Total 380 ml 280 ml Output Total 100 ml 45 ml Balance 280 ml 235 ml Tube Feeding 280 ml 280 ml Other 100 ml Output Urine Total 100 ml 45 ml # Bowel Movements 1 2 Dressing: other Wound: other Drains: other Cardiovascular: RSR Respiratory: decreased breath sounds Abdomen: soft, present bowel sounds Extremities: no cyanosis Laboratory Tests Test 06/28/19 04:10 White Blood Count 13.0 K/UL (4.8-10.8) H Red Blood Count 2.67 M/UL (4.70-6.10) L Hemoglobin 7.9 G/DL (14.2-18.0) L Hematocrit 25.2 % (42.0-52.0) L Mean Corpuscular Volume 94 FL (80-99) Mean Corpuscular Hemoglobin 29.6 PG (27.0-31.0) Mean Corpuscular Hemoglobin Concent 31.3 G/DL (32.0-36.0) L Red Cell Distribution Width 19.0 % (11.6-14.8) H Platelet Count 365 K/UL (150-450) Mean Platelet Volume 6.6 FL (6.5-10.1) Neutrophils (%) (Auto) % (45.0-75.0) Lymphocytes (%) (Auto) % (20.0-45.0) Monocytes (%) (Auto) % (1.0-10.0) Eosinophils (%) (Auto) % (0.0-3.0) Basophils (%) (Auto) % (0.0-2.0) Differential Total Cells Counted 100 Neutrophils % (Manual) 84 % (45-75) H Lymphocytes % (Manual) 10 % (20-45) L Monocytes % (Manual) 5 % (1-10) Eosinophils % (Manual) 1 % (0-3) Basophils % (Manual) 0 % (0-2) Band Neutrophils 0 % (0-8) Platelet Estimate Adequate Platelet Morphology Normal Polychromasia 1+ Hypochromasia 1+ Anisocytosis 1+ Sodium Level 138 MMOL/L (136-145) Potassium Level 3.4 MMOL/L (3.5-5.1) L Chloride Level 97 MMOL/L (98-107) L Carbon Dioxide Level 26 MMOL/L (21-32) Anion Gap 15 mmol/L (5-15) Blood Urea Nitrogen 61 mg/dL (7-18) H Creatinine 7.1 MG/DL (0.55-1.30) #H Estimat Glomerular Filtration Rate 7.8 mL/min (>60) Glucose Level 140 MG/DL (74-106) H Calcium Level 9.2 MG/DL (8.5-10.1) # Phosphorus Level 4.2 MG/DL (2.5-4.9) Magnesium Level 2.6 MG/DL (1.8-2.4) H Total Bilirubin 0.3 MG/DL (0.2-1.0) Aspartate Amino Transf (AST/SGOT) 22 U/L (15-37) Alanine Aminotransferase (ALT/SGPT) 7 U/L (12-78) L Alkaline Phosphatase 88 U/L (46-116) C-Reactive Protein, Quantitative 16.9 mg/dL (0.00-0.90) H Pro-B-Type Natriuretic Peptide > 63898 pg/mL (0-125) H Total Protein 7.6 G/DL (6.4-8.2) Albumin 1.8 G/DL (3.4-5.0) L Globulin 5.8 g/dL Albumin/Globulin Ratio 0.3 (1.0-2.7) L Plan Problems: (1) Suspected COVID-19 virus infection (2) HTN (hypertension) (3) CASSANDRA (acute kidney injury) Assessment & Plan: Needs urgent HD needs access patient okay and consented see note will follow with recs new line placed discussed with team and nephrology HD line functional when checked has TPA now please use appropriately Cathflo used again this flow during dialysis on 430 was low. Will monitor may need line change 5/4 plan for HD as per renal may need to take fluid off with HD edema anasarca dressings saturated and changed will monitor (4) Anemia in chronic kidney disease (CKD) (5) Anemia (6) Renal failure (7) Suspected COVID-19 virus infection Assessment & Plan: Pt deconditioned and despite all skin preventions Pt noted to have developed several pressure injuries. . Stable dry eschar noted to clefts of R and L ears. No erythema noted . DTPI noted to L trochanter. Base of injury is maroon in colour with marginal erythema along borders. Partially opened DTPI Sacrum, R and L Buttocks. Base of wound is maroon with two small open wounds L sacrum and L buttocks. Pt has an APM/MOMO Mattress overlay and is being positioned with pillows as per tolerance and within protocols. Tx.Plan: Apply Cavilon Skin Barrier to both ears Daily and prn. Apply Moisture Barrier Paste to Sacrum,R and L Buttocks. Cover with Optifoam drsgs. Change every 3 days and PRN. Apply Cavilon Skin Barrier to R and L trochanter. Cover each site with Optifoam drsgs.Change every 7 days and PRN. Apply Cavilon Skin Barrier to both heels. Cover each heel with Optifoam drsg. Change every 7 days and prn. Off-load heels with pillow. Reposition at least every 2hours or as tolerated. APM/MOMO Mattress overlay. (8) COVID-19 Assessment & Plan: COVID + c diff negative febrile leukocytosis renal insufficiency see above cont resp care Rx as per ID worsening on vent support now cxr noted on pressors prognosis guarded repeat covid ++ weaning vent and pressors off slowly showing improvement Yaniv Mast June 28, 2019 18:53
[2019-06-28] MEDS: Dyna-Hex 2% Top Sol 2oz TOPIC SCH (20:34)
[2019-06-28] MEDS: Epoetin Alfa-EPBX(ESRD on dialysis)10,000 unit/ml vial SUBQ SCH (20:34)
--- NOTE | 2019-06-28 21:26 | General Progress Note ---
Assessment/Plan Problem List: (1) Anemia ICD Codes: D64.9 - Anemia, unspecified SNOMED: 568994666 (2) Renal failure ICD Codes: N19 - Unspecified kidney failure SNOMED: 94860811 (3) Suspected COVID-19 virus infection ICD Codes: R68.89 - Other general symptoms and signs SNOMED: 401502176 (4) HTN (hypertension) ICD Codes: I10 - Essential (primary) hypertension SNOMED: 13501939 (5) CASSANDRA (acute kidney injury) ICD Codes: N17.9 - Acute kidney failure, unspecified SNOMED: 0970268, 47791409 (6) Anemia in chronic kidney disease (CKD) ICD Codes: N18.9 - Chronic kidney disease, unspecified; D63.1 - Anemia in chronic kidney disease SNOMED: 399229712 (7) Suspected COVID-19 virus infection ICD Codes: R68.89 - Other general symptoms and signs SNOMED: 581373610 Status: unchanged Assessment/Plan: hypokalemia ANEMIA getting worse renal failure pna covid positve resp failure sepsis hyponatrmia supportive therapy no change very poor prognosis Subjective ROS Limited/Unobtainable: Yes Allergies: Coded Allergies: No Known Allergies (Unverified , 05/28/19) Objective Last 24 Hour Vital Signs Date Time Temp Pulse Resp B/P (MAP) Pulse Ox O2 Delivery O2 Flow Rate FiO2 06/28/19 20:30 83 22 137/67 (90) 99 06/28/19 20:00 79 26 123/61 (81) 99 06/28/19 20:00 Mechanical Ventilator 06/28/19 20:00 26 123/61 Non-Rebreather 30 06/28/19 20:00 30 06/28/19 19:30 85 16 126/60 (82) 99 06/28/19 19:00 86 26 100 30 86 26 30 06/28/19 19:00 26 137/63 Mechanical Ventilator 30 06/28/19 19:00 85 22 137/63 (87) 100 06/28/19 18:30 86 26 140/62 (88) 99 06/28/19 18:00 83 26 136/63 (87) 100 06/28/19 18:00 26 136/63 Mechanical Ventilator 30 06/28/19 17:30 80 26 128/54 (78) 100 5/18/20 17:00 89 26 149/66 (93) 99 20 17:00 26 149/66 Mechanical Ventilator 30 06/28/19 16:30 79 25 149/77 (101) 99 20 16:00 30 20 16:00 26 127/61 Mechanical Ventilator 30 20 16:00 74 1820 16:00 Mechanical Ventilator 06/28/19 16:00 99.2 73 26 127/61 (83) 99 20 15:30 73 26 119/66 (83) 99 18/20 15:08 70 26 30 20 15:00 83 25 147/69 (95) 99 06/28/19 15:00 26 147/69 Mechanical Ventilator 30 06/28/19 14:30 83 26 148/68 (94) 100 06/28/19 14:00 77 26 142/70 (94) 100 06/28/19 14:00 26 142/70 Mechanical Ventilator 30 06/28/19 13:30 88 26 139/64 (89) 100 06/28/19 13:00 26 130/61 Mechanical Ventilator 30 06/28/19 13:00 76 26 130/61 (84) 100 06/28/19 12:30 76 26 128/58 (81) 100 06/28/19 12:00 99.4 77 26 125/58 (80) 99 20 12:00 26 125/58 Mechanical Ventilator 30 06/28/19 12:00 Mechanical Ventilator 06/28/19 12:00 74 06/28/19 11:49 87 26 100 Mechanical Ventilator 30 90 26 30 06/28/19 11:00 85 26 127/62 (83) 99 06/27/20 11:00 26 127/62 Mechanical Ventilator 30 06/28/19 10:30 92 26 118/63 (81) 99 18/20 10:00 26 124/72 Mechanical Ventilator 30 06/28/19 10:00 99 26 124/72 (89) 99 1820 09:30 106 29 125/71 (89) 98 1820 09:18 32 172/80 Mechanical Ventilator 30 20 09:15 30 06/28/19 09:13 106 33 30 06/28/19 09:00 122 38 172/80 (110) 98 5/18/20 08:00 102 06/28/19 08:00 99.1 108 36 141/73 (95) 98 06/28/19 08:00 Mechanical Ventilator 06/28/19 07:45 30 06/28/19 07:43 103 36 30 06/28/19 07:43 100 06/28/19 07:11 101 26 100 Mechanical Ventilator 30 103 26 30 06/28/19 07:00 103 25 130/69 (89) 99 06/28/19 06:30 105 26 06/28/19 06:00 99.5 104 26 135/72 (93) 99 06/28/19 05:00 86 25 144/69 (94) 99 06/28/19 04:00 Mechanical Ventilator 06/28/19 04:00 89 06/28/19 04:00 89 24 136/68 (90) 100 06/28/19 04:00 30 06/28/19 03:30 84 26 100 Mechanical Ventilator 30 86 27 30 06/28/19 03:00 91 25 141/73 (95) 100 06/28/19 02:00 91 27 135/69 (91) 100 06/28/19 01:00 94 31 130/71 (90) 100 06/28/19 00:00 Mechanical Ventilator 06/28/19 00:00 99.7 103 23 142/68 (92) 100 06/27/19 23:30 106 28 100 Mechanical Ventilator 30 108 27 30 06/27/19 23:00 129/65 06/27/19 23:00 90 26 128/59 (82) 100 06/27/19 22:00 98 25 146/70 (95) 100 Intake and Output 06/27/19 06/28/19 19:00 07:00 Intake Total 380 ml 280 ml Output Total 100 ml 45 ml Balance 280 ml 235 ml Tube Feeding 280 ml 280 ml Other 100 ml Output Urine Total 100 ml 45 ml # Bowel Movements 1 2 Laboratory Tests 06/28/19 04:10: White Blood Count 13.0H, Red Blood Count 2.67L, Hemoglobin 7.9L, Hematocrit 25.2L, Mean Corpuscular Volume 94, Mean Corpuscular Hemoglobin 29.6, Mean Corpuscular Hemoglobin Concent 31.3L, Red Cell Distribution Width 19.0H, Platelet Count 365, Mean Platelet Volume 6.6, Neutrophils (%) (Auto) , Lymphocytes (%) (Auto) , Monocytes (%) (Auto) , Eosinophils (%) (Auto) , Basophils (%) (Auto) , Differential Total Cells Counted 100, Neutrophils % ( Manual) 84H, Lymphocytes % (Manual) 10L, Monocytes % (Manual) 5, Eosinophils % ( Manual) 1, Basophils % (Manual) 0, Band Neutrophils 0, Platelet Estimate Adequate, Platelet Morphology Normal, Polychromasia 1+, Hypochromasia 1+, Anisocytosis 1+, Sodium Level 138, Potassium Level 3.4L, Chloride Level 97L, Carbon Dioxide Level 26, Anion Gap 15, Blood Urea Nitrogen 61H, Creatinine 7.1#H , Estimat Glomerular Filtration Rate 7.8, Glucose Level 140H, Calcium Level 9.2# , Phosphorus Level 4.2, Magnesium Level 2.6H, Total Bilirubin 0.3, Aspartate Amino Transf (AST/SGOT) 22, Alanine Aminotransferase (ALT/SGPT) 7L, Alkaline Phosphatase 88, C-Reactive Protein, Quantitative 16.9H, Pro-B-Type Natriuretic Peptide > 00367W, Total Protein 7.6, Albumin 1.8L, Globulin 5.8, Albumin/ Globulin Ratio 0.3L Height (Feet): 6 Height (Inches): 1.00 Weight (Pounds): 242 Karishma Mulligan MD June 28, 2019 21:26
[2019-06-28] MEDS: NOREPINEPHRINE BITARTRATE IV SCH ×3 (23:00)
[2019-06-28] MEDS: D5W IV SCH ×3 (23:00)
[2019-06-29] VITALS (42 sets, daily range): BP systolic 93–176; BP diastolic 51–94
[2019-06-29] MEDS: NovoLOG Insulin Flexpen SUBQ SCH ×5 (00:02→23:02)
--- NOTE | 2019-06-29 00:27 | Pulmonolgy Critical Care Note ---
Critical Care - Asmt/Plan Assessment/Plan: Pulmonary CCM Progress Note HPI: Patient is a 68 year old man, senior living resident, admitted c/o shortness of breath, cough, noted to have Covid 19 Pneumonia, Respiratory Failure S/p intubation, CXR stable ETT adjusted Septic Shock, pressors off Preserved EF FIO2 40%-50%, P5, adequate O2 sats, remains on ACVC, tolerated weaning again, remains sedated, minimal secretions HD tolerated Hyponatremia stable Anemia stable ID following On HD per Renal See earlier on 06/28/2019 Past Medical History: COPD, CKD, Hypertension, Anemia Hypotension requiring pressors, in ICU Persistently elevated WCC Allergies: No Known Allergies Improving Pulmonary Status on HD Physical Exam Vital Signs Noted Sedated on ventilator WDWN, no distress HEENT: NCAT,moist mm Chest: Occasional rhonchi Heart: HS1, HS2, RRR Abdomen: SNTND, no masses Extremities: Well perfused, no edema 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: No focal signs, no seizures, sedated Impression: COVID-19 virus infection Pneumonia Respiratory failure on ventilator Volume overload improving - on HD Hypotension on pressors Cardiomegaly Lymphopenia Elevated AST COPD Chronic Kidney Disease - HD H/o Hypertension Worsening anemia Plan: Antibiotics per ID HD Pressors PRN ACVC - wean as tolerated once pressors reduced/off ABG [employer]N [employer] Medications 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 Monitor cultures/viral studies PPX Hemodialysis per Renal Psychiatry following [facility] - [facility] requested for when available, [facility] - not available as yet Laboratory Tests Noted: CXR: Hypoventilatory exam, interstitial changes, cardiomegaly, improving infiltrates Subjective ROS Limited/Unobtainable: No Constitutional: Denies: fever Respiratory: Reports: dry cough, shortness of breath Gastrointestinal/Abdominal: Reports: diarrhea, other - colace was stopped Psychiatric: Reports: other - refuses labs Allergies: Coded Allergies: No Known Allergies (Unverified , 05/28/19) All Systems: reviewed and negative except above Labs noted Critical Care - Objective Last 24 Hour Vital Signs Date Time Temp Pulse Resp B/P (MAP) Pulse Ox O2 Delivery O2 Flow Rate FiO2 06/29/19 00:00 26 133/73 Mechanical Ventilator 30 06/29/19 00:00 30 06/29/19 00:00 Mechanical Ventilator 06/29/19 00:00 99.1 77 26 133/73 (93) 100 5/18/20 23:30 85 26 100 30 85 26 30 5/18/20 23:00 90 23 147/74 (98) 99 518/20 23:00 23 147/74 Mechanical Ventilator 30 518/20 23:00 147/74 5/18/20 22:30 76 22 124/62 (82) 100 5/18/20 22:00 79 24 120/64 (82) 100 518/20 22:00 24 120/64 Mechanical Ventilator 30 06/27/20 21:30 90 26 140/63 (88) 99 5/18/20 21:00 77 26 122/59 (80) 99 5/18/20 21:00 26 122/59 Mechanical Ventilator 30 06/27/20 20:30 83 22 137/67 (90) 99 18/20 20:00 99.4 79 26 123/61 (81) 99 18/20 20:00 Mechanical Ventilator 18/20 20:00 26 123/61 Non-Rebreather 30 06/27/20 20:00 30 518/20 20:00 80 5/18/20 19:30 85 16 126/60 (82) 99 18/20 19:00 86 26 100 30 86 26 30 18/20 19:00 26 137/63 Mechanical Ventilator 30 18/20 19:00 85 22 137/63 (87) 100 5/18/20 18:30 86 26 140/62 (88) 99 5/18/20 18:00 83 26 136/63 (87) 100 518/20 18:00 26 136/63 Mechanical Ventilator 30 06/27/20 17:30 80 26 128/54 (78) 100 5/18/20 17:00 89 26 149/66 (93) 99 5/18/20 17:00 26 149/66 Mechanical Ventilator 30 18/20 16:30 79 25 149/77 (101) 99 18/20 16:00 30 518/20 16:00 26 127/61 Mechanical Ventilator 30 518/20 16:00 74 5/18/20 16:00 Mechanical Ventilator 518/20 16:00 99.2 73 26 127/61 (83) 99 5/18/20 15:30 73 26 119/66 (83) 99 5/18/20 15:08 70 26 30 06/27/20 15:00 83 25 147/69 (95) 99 20 15:00 26 147/69 Mechanical Ventilator 30 06/28/19 14:30 83 26 148/68 (94) 100 1820 14:00 77 26 142/70 (94) 100 1820 14:00 26 142/70 Mechanical Ventilator 30 06/28/19 13:30 88 26 139/64 (89) 100 20 13:00 26 130/61 Mechanical Ventilator 30 20 13:00 76 26 130/61 (84) 100 20 12:30 76 26 128/58 (81) 100 06/28/19 12:00 99.4 77 26 125/58 (80) 99 20 12:00 26 125/58 Mechanical Ventilator 30 06/28/19 12:00 Mechanical Ventilator 06/28/19 12:00 74 06/28/19 11:49 87 26 100 Mechanical Ventilator 30 90 26 30 06/28/19 11:00 85 26 127/62 (83) 99 20 11:00 26 127/62 Mechanical Ventilator 30 06/28/19 10:30 92 26 118/63 (81) 99 20 10:00 26 124/72 Mechanical Ventilator 30 06/28/19 10:00 99 26 124/72 (89) 99 06/28/19 09:30 106 29 125/71 (89) 98 06/28/19 09:18 32 172/80 Mechanical Ventilator 30 06/28/19 09:15 30 06/28/19 09:13 106 33 30 20 09:00 122 38 172/80 (110) 98 20 08:00 102 20 08:00 99.1 108 36 141/73 (95) 98 06/28/19 08:00 Mechanical Ventilator 06/28/19 07:45 30 06/28/19 07:43 103 36 30 06/27/20 07:43 100 1820 07:11 101 26 100 Mechanical Ventilator 30 103 26 30 18/20 07:00 103 25 130/69 (89) 99 20 06:30 105 26 06/28/19 06:00 99.5 104 26 135/72 (93) 99 06/28/19 05:00 86 25 144/69 (94) 99 06/28/19 04:00 Mechanical Ventilator 06/28/19 04:00 89 06/28/19 04:00 89 24 136/68 (90) 100 06/28/19 04:00 30 06/28/19 03:30 84 26 100 Mechanical Ventilator 30 86 27 30 06/28/19 03:00 91 25 141/73 (95) 100 06/28/19 02:00 91 27 135/69 (91) 100 06/28/19 01:00 94 31 130/71 (90) 100 Accucheck: 204 Critical Care - Subjective ROS Limited/Unobtainable: No Condition: improving IV Access: central FI02: 30 Vent Support Breath Rate: 26 Vent Support Mode: AC Vent Tidal Volume: 500 Sputum Amount: Moderate PEEP: 5.0 PIP: 24 Tube Feeding Amount: 35 I&O: Intake and Output 06/28/19 06/29/19 19:00 07:00 Intake Total 593.5 ml 200 ml Output Total 125 ml 0 ml Balance 468.5 ml 200 ml IV Total 48.5 ml 25 ml Tube Feeding 385 ml 175 ml Other 160 ml Output Urine Total 125 ml 0 ml # Bowel Movements 1 ET-Tube: 7.5 ET Position: 26 Arturo Mckeon MD June 29, 2019 00:27
[2019-06-29] MEDS: Albuterol 90mcg Inhaler 8gm INH SCH ×6 (04:44→22:44)
[2019-06-29] MEDS: Renvela 800mg Pkt NG SCH ×3 (05:22→20:10)
[2019-06-29 05:26] LABS: HEMATOCRIT 24.6 % (42.0-52.0); HEMOGLOBIN 7.7 G/DL (14.2-18.0); MEAN CORPUSCULAR VOLUME 94 FL (80-99); PLATELET COUNT 402 K/UL (150-450); RED BLOOD COUNT 2.63 M/UL (4.70-6.10); RED CELL DISTRIBUTION WIDTH 18.5 % (11.6-14.8); WHITE BLOOD COUNT 12.5 K/UL (4.8-10.8)
[2019-06-29 05:42] LABS: ANION GAP 13 mmol/L (5-15); BLOOD UREA NITROGEN 74 mg/dL (7-18); CALCIUM 8.7 MG/DL (8.5-10.1); CARBON DIOXIDE 27 MMOL/L (21-32); CHLORIDE 99 MMOL/L (98-107); CREATININE 8.3 MG/DL (0.55-1.30); POTASSIUM 3.5 MMOL/L (3.5-5.1); SODIUM 139 MMOL/L (136-145)
[2019-06-29] MEDS: fentaNYL 2500mcg/NS 250ml IV SCH ×2 (06:00→23:01)
--- NOTE | 2019-06-29 08:04 | Hematology/Onc Progress Note ---
Assessment/Plan Assessment/Plan Assessment and Recs: # Anemia of chronic disease, likely related ot underlying kidney disease has COIVD19++ --> hgb trend 9-->8-->7.3-->7.9-->6.8->9.5-->10->8.3-->7.7-->7.1-->8.9->8.8->7.7 -->8.1 ->7.9-->7.7 --> transfuse as needed, hgb goal >7 --> no evidence of hemolysis --> peripheral smear has been reviewed --> epogen started three x a week ==>> transfuse w 2 units 06/08, 06/15, # Leukocytosis likely related to suspected COVID-19 virus infection --> completed plaquenil --> trend smear as needed --> initially 4-->11-->14.5-->21-->26-->21->24--.28-->23-->19-->16.2-->21--> 11.2 -->12.5 --> pulm is aware --> on abx cefepime/vanc->zosyn/vanc-->off --> pressors as needed # Thrombocytopenia/Lymphopenia --> likely related to covid19 --> plt 129k-->186k-->251--285 # Respiratory failure with covid19+ --> s/p vent # Possible Pneumonia --> abx completed # Cardiomegaly # Transaminitis with Elevated AST # COPD # Chronic Kidney Disease --> per renal hd # Hypertension # Dvt ppx lovenox Appreciate consultation and ernesto Rn Subjective Allergies: Coded Allergies: No Known Allergies (Unverified , 05/28/19) Subjective 06/01 nv, extremely agitated, not allowing labs draws, no night sweats, cbc ordered 06/02 confused, restraints, on abx and plaquenil, hgb 7.9, nrb 15 L 06/03 is with nonrebreather, but not compliant, remains confused 06/05 no bleeding, labs noted, no major bleeding, otherwise comfortable 06/06 labs reviewed, no bleeding, meds noted, no night sweats, on levo and nonrebreather 06/07 labs noted, no bleeding, meds reviewed, no bleeding, wbc higher 06/08 to get 2 units prbc, no night sweats, meds reviewed 06/09 is on cefepime and vanc, labs noted, ernesto Rn, no bleeding 06/10 no major changes, labs reviewed, wbc 28k, on abx, cefepime 06/12 remains in icu, labs noted, no night sweats or bleeding 06/13 sluggish pupils, remains agitated, per psych, no bleding, on vent, wbc sitll high 06/14 still confused, remains on vent, with ng, running nepro, on pressors 06/15 icu, febrile, non verbal, hgb 7.1, blood pending, completed plaq 06/16 remains in the icu, nonverbal, plan for hd tomorrow, ernesto rn 06/17 in icu, on pressor, nonverbal, on abx, no bleeding 06/19 no bleeding, nonverbal in icu, hgb is 7.7 06/20 on zosyn, tube feeds, vent, labs noted, in icu, nv 06/21 gettng hd as per renal, in icu, nv, no bleeding, tfs 06/22 icu, cxr with slight improvement, cooling blanket, weaning today 06/23 wewaning, in icu, on vent, abx, and pressors as needed, labs noted 06/24 failed weaning, off abx, completed plaquenil, hgb 8.1 06/26 icu, weaning for this am, afebrile, hgb 8 06/27 in icu, remains comotose, weaning started on peep, no night sweats 06/28 weaning today, off abx, restraints, no distress, h/h stable Objective Objective Current Medications Medications (Trade) Dose Ordered Sig/Anthony Route PRN Reason Start Time Stop Time Status Last Admin Dose Admin Acetaminophen (Tylenol) 650 mg Q4H PRN NG Temp >100.5 06/13/19 11:00 07/13/19 10:59 06/27/19 04:21 Albuterol Sulfate (Proventil MDI) 2 puff Q4HRT INH 06/06/19 23:00 08/30/19 18:59 06/29/19 04:44 Chlorhexidine Gluconate (Michelle-Hex 2%) 1 applic DAILY@2000 TOPIC 06/07/19 20:00 09/05/19 19:59 06/28/19 20:34 Dextrose (Dextrose 50%) 25 ml Q30M PRN IV Hypoglycemia 06/20/19 19:30 09/18/19 19:29 Dextrose (Dextrose 50%) 50 ml Q30M PRN IV Hypoglycemia 06/20/19 19:30 09/18/19 19:29 Docusate Sodium (Colace) 100 mg THREE TIMES A DAY NG 06/07/19 13:00 07/07/19 12:59 06/28/19 17:28 Dopamine HCl/ Dextrose 250 ml @ 0 mls/hr Q24H PRN IV For hypotension 06/13/19 08:15 09/11/19 08:14 Enoxaparin Sodium (Lovenox) 30 mg DAILY SUBQ 06/07/19 09:00 08/27/19 08:59 06/28/19 09:19 Epoetin Aftab (Epoetin Aftab(ESRD on dialysis)) 10,000 unit FRI-FRI-FRI SUBQ 06/07/19 21:00 08/31/19 20:59 06/28/19 20:34 Fentanyl Citrate 250 ml @ 0 mls/hr Q24H IV 06/24/19 06:00 09/22/19 05:59 06/28/19 09:18 Hydralazine HCl (Apresoline) 10 mg Q4H PRN IV Blood pressure over 160 systol 06/07/19 10:15 09/05/19 10:14 Insulin Aspart (NovoLOG) EVERY 6 HOURS SUBQ 06/21/19 00:00 09/19/19 00:00 06/29/19 05:36 Metoclopramide HCl (Reglan) 5 mg Q8H PRN IVP Nausea & Vomiting 06/18/19 12:00 07/18/19 11:59 06/19/19 00:50 Midodrine (Pro-Amatine) 10 mg THREE TIMES A DAY NG 06/09/19 13:00 09/07/19 12:59 06/28/19 17:28 Norepinephrine Bitartrate 8 mg/ Dextrose 283 ml @ 0 mls/hr Q24H IV 06/23/19 23:00 6/12/20 22:59 06/25/19 14:38 Pantoprazole (Protonix) 40 mg DAILY IVP 06/19/19 09:00 07/19/19 08:59 06/28/19 09:16 Sevelamer Carbonate (Renvela) 1,600 mg Q8HR NG 06/25/19 22:00 09/05/19 12:59 06/29/19 05:22 Last 24 Hour Vital Signs Date Time Temp Pulse Resp B/P (MAP) Pulse Ox O2 Delivery O2 Flow Rate FiO2 06/29/19 07:04 91 29 100 30 87 28 30 06/29/19 07:00 89 26 149/69 (95) 100 06/29/19 07:00 26 149/69 Mechanical Ventilator 30 06/29/19 06:30 83 265 06/29/19 06:00 79 26 142/72 (95) 99 06/29/19 06:00 26 142/72 Mechanical Ventilator 30 06/29/19 06:00 26 122/74 Mechanical Ventilator 30 06/29/19 05:00 26 122/74 Mechanical Ventilator 30 06/29/19 05:00 84 26 122/74 (90) 99 06/29/19 04:00 Mechanical Ventilator 06/29/19 04:00 98.8 82 26 130/71 (90) 99 06/29/19 04:00 26 130/71 Mechanical Ventilator 30 06/29/19 04:00 89 06/29/19 04:00 30 06/29/19 03:32 73 26 100 30 75 26 30 06/29/19 03:00 81 28 130/73 (92) 100 06/29/19 03:00 28 130/73 Mechanical Ventilator 30 06/29/19 02:00 73 26 126/61 (82) 100 06/29/19 02:00 26 126/61 Mechanical Ventilator 30 06/29/19 01:00 26 125/57 Mechanical Ventilator 30 06/29/19 01:00 71 26 125/57 (79) 99 06/29/19 00:00 94 06/29/19 00:00 26 133/73 Mechanical Ventilator 30 06/29/19 00:00 30 06/29/19 00:00 Mechanical Ventilator 06/29/19 00:00 99.1 77 26 133/73 (93) 100 06/28/19 23:30 85 26 100 30 85 26 30 5/18/20 23:00 90 23 147/74 (98) 99 5/18/20 23:00 23 147/74 Mechanical Ventilator 30 518/20 23:00 147/74 5/18/20 22:30 76 22 124/62 (82) 100 5/18/20 22:00 79 24 120/64 (82) 100 5/18/20 22:00 24 120/64 Mechanical Ventilator 30 518/20 21:30 90 26 140/63 (88) 99 518/20 21:00 77 26 122/59 (80) 99 5/18/20 21:00 26 122/59 Mechanical Ventilator 30 18/20 20:30 83 22 137/67 (90) 99 5/18/20 20:00 99.4 79 26 123/61 (81) 99 18/20 20:00 Mechanical Ventilator 518/20 20:00 26 123/61 Non-Rebreather 30 06/27/20 20:00 30 518/20 20:00 80 518/20 19:30 85 16 126/60 (82) 99 18/20 19:00 86 26 100 30 86 26 30 518/20 19:00 26 137/63 Mechanical Ventilator 30 06/27/20 19:00 85 22 137/63 (87) 100 518/20 18:30 86 26 140/62 (88) 99 5/18/20 18:00 83 26 136/63 (87) 100 5/18/20 18:00 26 136/63 Mechanical Ventilator 30 06/27/20 17:30 80 26 128/54 (78) 100 518/20 17:00 89 26 149/66 (93) 99 5/18/20 17:00 26 149/66 Mechanical Ventilator 30 18/20 16:30 79 25 149/77 (101) 99 /18/20 16:00 30 5/18/20 16:00 26 127/61 Mechanical Ventilator 30 518/20 16:00 74 5/18/20 16:00 Mechanical Ventilator 5/18/20 16:00 99.2 73 26 127/61 (83) 99 5/18/20 15:30 73 26 119/66 (83) 99 5/18/20 15:08 70 26 30 5/18/20 15:00 83 25 147/69 (95) 99 1820 15:00 26 147/69 Mechanical Ventilator 30 20 14:30 83 26 148/68 (94) 100 20 14:00 77 26 142/70 (94) 100 18/20 14:00 26 142/70 Mechanical Ventilator 30 06/28/19 13:30 88 26 139/64 (89) 100 06/28/19 13:00 26 130/61 Mechanical Ventilator 30 20 13:00 76 26 130/61 (84) 100 1820 12:30 76 26 128/58 (81) 100 20 12:00 99.4 77 26 125/58 (80) 99 06/28/19 12:00 26 125/58 Mechanical Ventilator 30 06/28/19 12:00 Mechanical Ventilator 06/28/19 12:00 74 06/28/19 11:49 87 26 100 Mechanical Ventilator 30 90 26 30 06/28/19 11:00 85 26 127/62 (83) 99 06/28/19 11:00 26 127/62 Mechanical Ventilator 30 06/28/19 10:30 92 26 118/63 (81) 99 18/20 10:00 26 124/72 Mechanical Ventilator 30 06/28/19 10:00 99 26 124/72 (89) 99 06/28/19 09:30 106 29 125/71 (89) 98 06/28/19 09:18 32 172/80 Mechanical Ventilator 30 06/28/19 09:15 30 06/28/19 09:13 106 33 30 06/28/19 09:00 122 38 172/80 (110) 98 20 08:00 102 06/28/19 08:00 99.1 108 36 141/73 (95) 98 06/27/20 08:00 Mechanical Ventilator 06/28/19 07:45 30 20 07:43 103 36 30 06/27/20 07:43 100 06/28/19 07:11 101 26 100 Mechanical Ventilator 30 103 26 30 18/20 07:00 103 25 130/69 (89) 99 1820 06:30 105 26 06/28/19 06:00 99.5 104 26 135/72 (93) 99 20 05:00 86 25 144/69 (94) 99 06/28/19 04:00 Mechanical Ventilator 06/28/19 04:00 89 06/28/19 04:00 89 24 136/68 (90) 100 06/28/19 04:00 30 06/28/19 03:30 84 26 100 Mechanical Ventilator 30 86 27 30 06/28/19 03:00 91 25 141/73 (95) 100 06/28/19 02:00 91 27 135/69 (91) 100 06/28/19 01:00 94 31 130/71 (90) 100 06/28/19 00:00 Mechanical Ventilator 06/28/19 00:00 99.7 103 23 142/68 (92) 100 06/27/19 23:30 106 28 100 Mechanical Ventilator 30 108 27 30 06/27/19 23:00 129/65 06/27/19 23:00 90 26 128/59 (82) 100 06/27/19 22:00 98 25 146/70 (95) 100 06/27/19 21:00 98.8 93 27 131/65 (87) 100 06/27/19 20:00 30 06/27/19 20:00 91 06/27/19 20:00 Mechanical Ventilator 06/27/19 20:00 94 26 144/65 (91) 99 06/27/19 19:30 94 27 100 Mechanical Ventilator 30 95 27 30 06/27/19 19:00 91 0 139/73 (95) 100 06/27/19 18:00 90 0 135/64 (87) 99 06/27/19 17:00 100 21 156/72 (100) 98 06/27/19 16:00 102 06/27/19 16:00 30 06/27/19 16:00 98.3 88 15 162/81 (108) 99 06/27/19 16:00 Mechanical Ventilator 06/27/19 15:00 83 22 159/72 (101) 98 06/27/19 14:30 87 26 100 Mechanical Ventilator 30 87 26 30 06/27/19 14:30 30 06/27/19 14:00 100 34 151/77 (101) 98 06/27/19 13:00 86 28 141/76 (97) 98 06/27/19 12:30 81 24 138/72 (94) 98 06/27/19 12:00 100 06/27/19 12:00 98.6 79 27 135/69 (91) 99 06/27/19 12:00 30 06/27/19 12:00 Mechanical Ventilator 06/27/19 11:23 82 27 100 Mechanical Ventilator 30 82 27 30 06/27/19 11:00 82 27 143/71 (95) 99 06/27/19 10:00 75 26 131/62 (85) 98 06/27/19 09:20 81 25 30 06/27/19 09:00 75 25 131/70 (90) 99 06/27/19 08:30 79 24 135/62 (86) 99 Intake and Output 06/28/19 06/29/19 19:00 07:00 Intake Total 593.5 ml 445 ml Output Total 125 ml 21 ml Balance 468.5 ml 424 ml IV Total 48.5 ml 60 ml Tube Feeding 385 ml 385 ml Other 160 ml Output Urine Total 125 ml 20 ml Stool Total 1 ml # Bowel Movements 1 1 Labs Test 06/27/19 04:00 06/27/19 06:50 06/27/19 11:20 06/28/19 04:10 Sodium Level 140 MMOL/L (136-145) 138 MMOL/L (136-145) Potassium Level 4.5 MMOL/L (3.5-5.1) 3.4 MMOL/L (3.5-5.1) Chloride Level 106 MMOL/L (98-107) 97 MMOL/L (98-107) Carbon Dioxide Level 25 MMOL/L (21-32) 26 MMOL/L (21-32) Anion Gap 9 mmol/L (5-15) 15 mmol/L (5-15) Blood Urea Nitrogen 54 mg/dL (7-18) 61 mg/dL (7-18) Creatinine 2.7 MG/DL (0.55-1.30) 7.1 MG/DL (0.55-1.30) Estimat Glomerular Filtration Rate 23.8 mL/min (>60) 7.8 mL/min (>60) Glucose Level 188 MG/DL (74-106) 140 MG/DL (74-106) Calcium Level 7.4 MG/DL (8.5-10.1) 9.2 MG/DL (8.5-10.1) Phosphorus Level 4.5 MG/DL (2.5-4.9) 4.2 MG/DL (2.5-4.9) Magnesium Level 2.9 MG/DL (1.8-2.4) 2.6 MG/DL (1.8-2.4) Total Bilirubin 0.4 MG/DL (0.2-1.0) 0.3 MG/DL (0.2-1.0) Aspartate Amino Transf (AST/SGOT) 32 U/L (15-37) 22 U/L (15-37) Alanine Aminotransferase (ALT/SGPT) 26 U/L (12-78) 7 U/L (12-78) Alkaline Phosphatase 169 U/L (46-116) 88 U/L (46-116) Total Protein 6.1 G/DL (6.4-8.2) 7.6 G/DL (6.4-8.2) Albumin 1.8 G/DL (3.4-5.0) 1.8 G/DL (3.4-5.0) Globulin 4.3 g/dL 5.8 g/dL Albumin/Globulin Ratio 0.4 (1.0-2.7) 0.3 (1.0-2.7) White Blood Count 13.3 K/UL (4.8-10.8) 13.0 K/UL (4.8-10.8) Red Blood Count 2.55 M/UL (4.70-6.10) 2.67 M/UL (4.70-6.10) Hemoglobin 8.0 G/DL (14.2-18.0) 7.9 G/DL (14.2-18.0) Hematocrit 23.5 % (42.0-52.0) 25.2 % (42.0-52.0) Mean Corpuscular Volume 92 FL (80-99) 94 FL (80-99) Mean Corpuscular Hemoglobin 31.4 PG (27.0-31.0) 29.6 PG (27.0-31.0) Mean Corpuscular Hemoglobin Concent 34.1 G/DL (32.0-36.0) 31.3 G/DL (32.0-36.0) Red Cell Distribution Width 18.0 % (11.6-14.8) 19.0 % (11.6-14.8) Platelet Count 326 K/UL (150-450) 365 K/UL (150-450) Mean Platelet Volume 7.4 FL (6.5-10.1) 6.6 FL (6.5-10.1) Neutrophils (%) (Auto) % (45.0-75.0) % (45.0-75.0) Lymphocytes (%) (Auto) % (20.0-45.0) % (20.0-45.0) Monocytes (%) (Auto) % (1.0-10.0) % (1.0-10.0) Eosinophils (%) (Auto) % (0.0-3.0) % (0.0-3.0) Basophils (%) (Auto) % (0.0-2.0) % (0.0-2.0) Differential Total Cells Counted 100 100 Neutrophils % (Manual) 79 % (45-75) 84 % (45-75) Lymphocytes % (Manual) 14 % (20-45) 10 % (20-45) Monocytes % (Manual) 6 % (1-10) 5 % (1-10) Eosinophils % (Manual) 1 % (0-3) 1 % (0-3) Basophils % (Manual) 0 % (0-2) 0 % (0-2) Band Neutrophils 0 % (0-8) 0 % (0-8) Platelet Estimate Adequate Adequate Platelet Morphology Normal Normal Polychromasia 1+ 1+ Hypochromasia 1+ 1+ Anisocytosis 1+ 1+ Arterial Blood pH 7.413 (7.350-7.450) Arterial Blood Partial Pressure CO2 41.7 mmHg (35.0-45.0) Arterial Blood Partial Pressure O2 104.3 mmHg (75.0-100.0) Arterial Blood HCO3 26.0 mmol/L (22.0-26.0) Arterial Blood Oxygen Saturation 97.9 % (95-100) Arterial Blood Base Excess 1.3 (-2-2) Kosta Test Positive C-Reactive Protein, Quantitative 16.9 mg/dL (0.00-0.90) Pro-B-Type Natriuretic Peptide > 33829 pg/mL (0-125) Test 06/29/19 04:00 White Blood Count 12.5 K/UL (4.8-10.8) Red Blood Count 2.63 M/UL (4.70-6.10) Hemoglobin 7.7 G/DL (14.2-18.0) Hematocrit 24.6 % (42.0-52.0) Mean Corpuscular Volume 94 FL (80-99) Mean Corpuscular Hemoglobin 29.4 PG (27.0-31.0) Mean Corpuscular Hemoglobin Concent 31.3 G/DL (32.0-36.0) Red Cell Distribution Width 18.5 % (11.6-14.8) Platelet Count 402 K/UL (150-450) Mean Platelet Volume 6.3 FL (6.5-10.1) Neutrophils (%) (Auto) % (45.0-75.0) Lymphocytes (%) (Auto) % (20.0-45.0) Monocytes (%) (Auto) % (1.0-10.0) Eosinophils (%) (Auto) % (0.0-3.0) Basophils (%) (Auto) % (0.0-2.0) Sodium Level 139 MMOL/L (136-145) Potassium Level 3.5 MMOL/L (3.5-5.1) Chloride Level 99 MMOL/L (98-107) Carbon Dioxide Level 27 MMOL/L (21-32) Anion Gap 13 mmol/L (5-15) Blood Urea Nitrogen 74 mg/dL (7-18) Creatinine 8.3 MG/DL (0.55-1.30) Estimat Glomerular Filtration Rate 6.5 mL/min (>60) Glucose Level 187 MG/DL (74-106) Calcium Level 8.7 MG/DL (8.5-10.1) Height (Feet): 6 Height (Inches): 1.00 Weight (Pounds): 240 Objective Sp02 EP Interpretation: reviewed General: nv, confused, sedated Heent: bilateral eye normal inspection, bilateral eye PERRL ++Ng Respiratory: normal breath sounds, no respiratory distress, intubated+++ Cardiovascular: regular rate, rhythm, no edema Gastrointestinal: normal inspection, soft, non-distended Rectal: deferred Musculoskeletal: normal range of motion, non-tender Neurologic: alert, motor strength/tone normal, sensory intact, responsive, speech normal Skin: Decubitus/Ulcer - See RN skin exam. : jamaal+ Greg Cabral MD June 29, 2019 08:04
[2019-06-29] MEDS: Midodrine 10mg tab NG SCH ×3 (08:43→17:28)
[2019-06-29] MEDS: Docusate 100mg/10ml Liq NG SCH ×3 (08:43→17:28)
[2019-06-29] MEDS: Pantoprazole Inj IVP SCH (08:43)
[2019-06-29] MEDS: Enoxaparin 30mg Inj SUBQ SCH (08:44)
--- NOTE | 2019-06-29 09:45 | Infectious Diseases Prog Note ---
Assessment/Plan Assessment/Plan IMPRESSION: 1. COVID19 pneumonia Positive: 05/27, 05/31 , 06/05, 06/09 ,06/17, 06/19, 06/23 2. MRSA carrier. 3. Chronic kidney disease , end-stage renal disease. 4. COPD. 5. Hypertension. 6. Anemia. 7. Hypothyroidism. 8. Hyperlipidemia. 9. Major depression. 10. Leukocytosis 11. Hypotension 12. Hepatitis C 13. Hyperuricemia 14. Diarrhea 15. septic shock 16. Leukocytosis improving RECOMMENDATIONS: Observe off of antibiotic Repeat CXR Finished hydroxychloroquine. Will f/u COVID19 test Case was D/W RN Subjective ROS Limited/Unobtainable: Yes Constitutional: Denies: fever Respiratory: Reports: other - failed weaning Allergies: Coded Allergies: No Known Allergies (Unverified , 05/28/19) Objective Vital Signs Last 24 Hour Vital Signs Date Time Temp Pulse Resp B/P (MAP) Pulse Ox O2 Delivery O2 Flow Rate FiO2 06/29/19 09:00 30 06/29/19 09:00 96 40 165/85 (111) 100 06/29/19 08:47 105 37 30 06/29/19 08:33 100 06/29/19 08:33 91 34 30 30 06/29/19 08:30 30 06/29/19 08:00 Mechanical Ventilator 06/29/19 08:00 99.4 91 26 148/82 (104) 99 06/29/19 07:04 91 29 100 30 87 28 30 06/29/19 07:00 89 26 149/69 (95) 100 06/29/19 07:00 26 149/69 Mechanical Ventilator 30 06/29/19 06:30 83 265 06/29/19 06:00 79 26 142/72 (95) 99 06/29/19 06:00 26 142/72 Mechanical Ventilator 30 06/29/19 06:00 26 122/74 Mechanical Ventilator 30 06/29/19 05:00 26 122/74 Mechanical Ventilator 30 06/29/19 05:00 84 26 122/74 (90) 99 06/29/19 04:00 Mechanical Ventilator 06/29/19 04:00 98.8 82 26 130/71 (90) 99 06/29/19 04:00 26 130/71 Mechanical Ventilator 30 06/29/19 04:00 89 06/29/19 04:00 30 06/29/19 03:32 73 26 100 30 75 26 30 06/29/19 03:00 81 28 130/73 (92) 100 06/29/19 03:00 28 130/73 Mechanical Ventilator 30 06/29/19 02:00 73 26 126/61 (82) 100 06/29/19 02:00 26 126/61 Mechanical Ventilator 30 06/29/19 01:00 26 125/57 Mechanical Ventilator 30 06/29/19 01:00 71 26 125/57 (79) 99 06/29/19 00:00 94 06/29/19 00:00 26 133/73 Mechanical Ventilator 30 06/29/19 00:00 30 06/29/19 00:00 Mechanical Ventilator 06/29/19 00:00 99.1 77 26 133/73 (93) 100 06/28/19 23:30 85 26 100 30 85 26 30 06/28/19 23:00 90 23 147/74 (98) 99 06/28/19 23:00 23 147/74 Mechanical Ventilator 30 06/28/19 23:00 147/74 06/28/19 22:30 76 22 124/62 (82) 100 06/28/19 22:00 79 24 120/64 (82) 100 06/28/19 22:00 24 120/64 Mechanical Ventilator 30 06/28/19 21:30 90 26 140/63 (88) 99 1820 21:00 77 26 122/59 (80) 99 18/20 21:00 26 122/59 Mechanical Ventilator 30 06/28/19 20:30 83 22 137/67 (90) 99 06/28/19 20:00 99.4 79 26 123/61 (81) 99 20 20:00 Mechanical Ventilator 06/28/19 20:00 26 123/61 Non-Rebreather 30 06/28/19 20:00 30 06/28/19 20:00 80 06/28/19 19:30 85 16 126/60 (82) 99 06/28/19 19:00 86 26 100 30 86 26 30 06/28/19 19:00 26 137/63 Mechanical Ventilator 30 06/28/19 19:00 85 22 137/63 (87) 100 06/28/19 18:30 86 26 140/62 (88) 99 5/18/20 18:00 83 26 136/63 (87) 100 51820 18:00 26 136/63 Mechanical Ventilator 30 20 17:30 80 26 128/54 (78) 100 20 17:00 89 26 149/66 (93) 99 1820 17:00 26 149/66 Mechanical Ventilator 30 20 16:30 79 25 149/77 (101) 99 20 16:00 30 20 16:00 26 127/61 Mechanical Ventilator 30 20 16:00 74 20 16:00 Mechanical Ventilator 20 16:00 99.2 73 26 127/61 (83) 99 20 15:30 73 26 119/66 (83) 99 20 15:08 70 26 30 06/28/19 15:00 83 25 147/69 (95) 99 20 15:00 26 147/69 Mechanical Ventilator 30 06/28/19 14:30 83 26 148/68 (94) 100 20 14:00 77 26 142/70 (94) 100 20 14:00 26 142/70 Mechanical Ventilator 30 06/28/19 13:30 88 26 139/64 (89) 100 20 13:00 26 130/61 Mechanical Ventilator 30 20 13:00 76 26 130/61 (84) 100 20 12:30 76 26 128/58 (81) 100 06/28/19 12:00 99.4 77 26 125/58 (80) 99 20 12:00 26 125/58 Mechanical Ventilator 30 20 12:00 Mechanical Ventilator 20 12:00 74 06/28/19 11:49 87 26 100 Mechanical Ventilator 30 90 26 30 20 11:00 85 26 127/62 (83) 99 20 11:00 26 127/62 Mechanical Ventilator 30 20 10:30 92 26 118/63 (81) 99 18/20 10:00 26 124/72 Mechanical Ventilator 30 20 10:00 99 26 124/72 (89) 99 Height (Feet): 6 Height (Inches): 1.00 Weight (Pounds): 240 HEENT: other - orally intubated Respiratory/Chest: other - on Ventilator, FIO@=30% Cardiovascular: normal rate, other - Subclavian cental line, Femoral HD line Abdomen: soft, non tender, other - orogastric tube Extremities: other - edema Neurologic/Psychiatric: unresponsiveness Laboratory Tests Test 06/29/19 04:00 White Blood Count 12.5 K/UL (4.8-10.8) H Red Blood Count 2.63 M/UL (4.70-6.10) L Hemoglobin 7.7 G/DL (14.2-18.0) L Hematocrit 24.6 % (42.0-52.0) L Mean Corpuscular Volume 94 FL (80-99) Mean Corpuscular Hemoglobin 29.4 PG (27.0-31.0) Mean Corpuscular Hemoglobin Concent 31.3 G/DL (32.0-36.0) L Red Cell Distribution Width 18.5 % (11.6-14.8) H Platelet Count 402 K/UL (150-450) Mean Platelet Volume 6.3 FL (6.5-10.1) L Neutrophils (%) (Auto) % (45.0-75.0) Lymphocytes (%) (Auto) % (20.0-45.0) Monocytes (%) (Auto) % (1.0-10.0) Eosinophils (%) (Auto) % (0.0-3.0) Basophils (%) (Auto) % (0.0-2.0) Sodium Level 139 MMOL/L (136-145) Potassium Level 3.5 MMOL/L (3.5-5.1) Chloride Level 99 MMOL/L (98-107) Carbon Dioxide Level 27 MMOL/L (21-32) Anion Gap 13 mmol/L (5-15) Blood Urea Nitrogen 74 mg/dL (7-18) H Creatinine 8.3 MG/DL (0.55-1.30) H Estimat Glomerular Filtration Rate 6.5 mL/min (>60) Glucose Level 187 MG/DL (74-106) H Calcium Level 8.7 MG/DL (8.5-10.1) Current Medications Medications (Trade) Dose Ordered Sig/Anthony Route PRN Reason Start Time Stop Time Status Last Admin Dose Admin Acetaminophen (Tylenol) 650 mg Q4H PRN NG Temp >100.5 06/13/19 11:00 07/13/19 10:59 06/27/19 04:21 Albuterol Sulfate (Proventil MDI) 2 puff Q4HRT INH 06/06/19 23:00 08/30/19 18:59 06/29/19 08:34 Chlorhexidine Gluconate (Michelle-Hex 2%) 1 applic DAILY@2000 TOPIC 06/07/19 20:00 09/05/19 19:59 06/28/19 20:34 Dextrose (Dextrose 50%) 25 ml Q30M PRN IV Hypoglycemia 06/20/19 19:30 09/18/19 19:29 Dextrose (Dextrose 50%) 50 ml Q30M PRN IV Hypoglycemia 06/20/19 19:30 09/18/19 19:29 Docusate Sodium (Colace) 100 mg THREE TIMES A DAY NG 06/07/19 13:00 07/07/19 12:59 06/29/19 08:43 Dopamine HCl/ Dextrose 250 ml @ 0 mls/hr Q24H PRN IV For hypotension 06/13/19 08:15 09/11/19 08:14 Enoxaparin Sodium (Lovenox) 30 mg DAILY SUBQ 06/07/19 09:00 08/27/19 08:59 06/29/19 08:44 Epoetin Aftab (Epoetin Aftab(ESRD on dialysis)) 10,000 unit FRI-FRI-FRI SUBQ 06/07/19 21:00 08/31/19 20:59 06/28/19 20:34 Fentanyl Citrate 250 ml @ 0 mls/hr Q24H IV 06/24/19 06:00 09/22/19 05:59 06/28/19 09:18 Hydralazine HCl (Apresoline) 10 mg Q4H PRN IV Blood pressure over 160 systol 06/07/19 10:15 09/05/19 10:14 Insulin Aspart (NovoLOG) EVERY 6 HOURS SUBQ 06/21/19 00:00 09/19/19 00:00 06/29/19 05:36 Metoclopramide HCl (Reglan) 5 mg Q8H PRN IVP Nausea & Vomiting 06/18/19 12:00 07/18/19 11:59 06/19/19 00:50 Midodrine (Pro-Amatine) 10 mg THREE TIMES A DAY NG 06/09/19 13:00 09/07/19 12:59 06/29/19 08:43 Norepinephrine Bitartrate 8 mg/ Dextrose 283 ml @ 0 mls/hr Q24H IV 06/23/19 23:00 07/23/19 22:59 06/25/19 14:38 Pantoprazole (Protonix) 40 mg DAILY IVP 06/19/19 09:00 07/19/19 08:59 06/29/19 08:43 Sevelamer Carbonate (Renvela) 1,600 mg Q8HR NG 06/25/19 22:00 09/05/19 12:59 06/29/19 05:22 Ted Leyva MD June 29, 2019 09:45
--- NOTE | 2019-06-29 09:51 | General Progress Note ---
Assessment/Plan Status: unchanged Assessment/Plan: 1. Diabetes. 2. Hypertension. 3. Coronary artery disease. 4. COPD. 5. Psychiatric disorder with schizophrenia. 6. History of hepatitis C. 7. HLP. 8. Chronic kidney disease, now with acute renal failure. 9. Anemia. 10. Hypothyroidism. 11. Spinal stenosis. 12. Constipation. 13. GERD. 14. COVID positive HD per nephrology TF on hold for weaning recent labs and notes reviewed stable H&H will fu Subjective ROS Limited/Unobtainable: No Allergies: Coded Allergies: No Known Allergies (Unverified , 05/28/19) Objective Last 24 Hour Vital Signs Date Time Temp Pulse Resp B/P (MAP) Pulse Ox O2 Delivery O2 Flow Rate FiO2 06/29/19 09:00 30 06/29/19 09:00 96 40 165/85 (111) 100 06/29/19 08:47 105 37 30 06/29/19 08:33 100 06/29/19 08:33 91 34 30 30 06/29/19 08:30 30 06/29/19 08:00 Mechanical Ventilator 06/29/19 08:00 99.4 91 26 148/82 (104) 99 06/29/19 07:04 91 29 100 30 87 28 30 06/29/19 07:00 89 26 149/69 (95) 100 06/29/19 07:00 26 149/69 Mechanical Ventilator 30 06/29/19 06:30 83 265 06/29/19 06:00 79 26 142/72 (95) 99 06/29/19 06:00 26 142/72 Mechanical Ventilator 30 06/29/19 06:00 26 122/74 Mechanical Ventilator 30 06/29/19 05:00 26 122/74 Mechanical Ventilator 30 06/29/19 05:00 84 26 122/74 (90) 99 06/29/19 04:00 Mechanical Ventilator 06/29/19 04:00 98.8 82 26 130/71 (90) 99 06/29/19 04:00 26 130/71 Mechanical Ventilator 30 06/29/19 04:00 89 06/29/19 04:00 30 06/29/19 03:32 73 26 100 30 75 26 30 06/29/19 03:00 81 28 130/73 (92) 100 06/29/19 03:00 28 130/73 Mechanical Ventilator 30 06/29/19 02:00 73 26 126/61 (82) 100 06/29/19 02:00 26 126/61 Mechanical Ventilator 30 06/29/19 01:00 26 125/57 Mechanical Ventilator 30 06/29/19 01:00 71 26 125/57 (79) 99 06/29/19 00:00 94 06/29/19 00:00 26 133/73 Mechanical Ventilator 30 06/29/19 00:00 30 06/29/19 00:00 Mechanical Ventilator 06/29/19 00:00 99.1 77 26 133/73 (93) 100 06/28/19 23:30 85 26 100 30 85 26 30 06/28/19 23:00 90 23 147/74 (98) 99 06/28/19 23:00 23 147/74 Mechanical Ventilator 30 06/28/19 23:00 147/74 06/28/19 22:30 76 22 124/62 (82) 100 06/28/19 22:00 79 24 120/64 (82) 100 06/28/19 22:00 24 120/64 Mechanical Ventilator 30 06/28/19 21:30 90 26 140/63 (88) 99 06/28/19 21:00 77 26 122/59 (80) 99 20 21:00 26 122/59 Mechanical Ventilator 30 06/28/19 20:30 83 22 137/67 (90) 99 06/28/19 20:00 99.4 79 26 123/61 (81) 99 1820 20:00 Mechanical Ventilator 06/28/19 20:00 26 123/61 Non-Rebreather 30 20 20:00 30 06/28/19 20:00 80 1820 19:30 85 16 126/60 (82) 99 1820 19:00 86 26 100 30 86 26 30 20 19:00 26 137/63 Mechanical Ventilator 30 06/28/19 19:00 85 22 137/63 (87) 100 20 18:30 86 26 140/62 (88) 99 1820 18:00 83 26 136/63 (87) 100 1820 18:00 26 136/63 Mechanical Ventilator 30 06/28/19 17:30 80 26 128/54 (78) 100 06/28/19 17:00 89 26 149/66 (93) 99 06/28/19 17:00 26 149/66 Mechanical Ventilator 30 06/28/19 16:30 79 25 149/77 (101) 99 06/28/19 16:00 30 06/28/19 16:00 26 127/61 Mechanical Ventilator 30 06/28/19 16:00 74 06/28/19 16:00 Mechanical Ventilator 06/28/19 16:00 99.2 73 26 127/61 (83) 99 06/28/19 15:30 73 26 119/66 (83) 99 06/28/19 15:08 70 26 30 06/28/19 15:00 83 25 147/69 (95) 99 06/28/19 15:00 26 147/69 Mechanical Ventilator 30 06/28/19 14:30 83 26 148/68 (94) 100 06/28/19 14:00 77 26 142/70 (94) 100 06/28/19 14:00 26 142/70 Mechanical Ventilator 30 06/28/19 13:30 88 26 139/64 (89) 100 06/28/19 13:00 26 130/61 Mechanical Ventilator 30 06/28/19 13:00 76 26 130/61 (84) 100 06/28/19 12:30 76 26 128/58 (81) 100 06/28/19 12:00 99.4 77 26 125/58 (80) 99 06/28/19 12:00 26 125/58 Mechanical Ventilator 30 06/28/19 12:00 Mechanical Ventilator 06/28/19 12:00 74 06/28/19 11:49 87 26 100 Mechanical Ventilator 30 90 26 30 06/28/19 11:00 85 26 127/62 (83) 99 06/28/19 11:00 26 127/62 Mechanical Ventilator 30 06/28/19 10:30 92 26 118/63 (81) 99 06/28/19 10:00 26 124/72 Mechanical Ventilator 30 06/28/19 10:00 99 26 124/72 (89) 99 Intake and Output 06/28/19 06/29/19 19:00 07:00 Intake Total 593.5 ml 445 ml Output Total 125 ml 21 ml Balance 468.5 ml 424 ml IV Total 48.5 ml 60 ml Tube Feeding 385 ml 385 ml Other 160 ml Output Urine Total 125 ml 20 ml Stool Total 1 ml # Bowel Movements 1 1 Laboratory Tests 06/29/19 04:00: White Blood Count 12.5H, Red Blood Count 2.63L, Hemoglobin 7.7L, Hematocrit 24.6L, Mean Corpuscular Volume 94, Mean Corpuscular Hemoglobin 29.4, Mean Corpuscular Hemoglobin Concent 31.3L, Red Cell Distribution Width 18.5H, Platelet Count 402, Mean Platelet Volume 6.3L, Neutrophils (%) (Auto) , Lymphocytes (%) (Auto) , Monocytes (%) (Auto) , Eosinophils (%) (Auto) , Basophils (%) (Auto) , Sodium Level 139, Potassium Level 3.5, Chloride Level 99 , Carbon Dioxide Level 27, Anion Gap 13, Blood Urea Nitrogen 74H, Creatinine 8.3H, Estimat Glomerular Filtration Rate 6.5, Glucose Level 187H, Calcium Level 8.7 Height (Feet): 6 Height (Inches): 1.00 Weight (Pounds): 240 General Appearance: no apparent distress EENT: normal ENT inspection Neck: supple Cardiovascular: normal rate Respiratory/Chest: decreased breath sounds Abdomen: normal bowel sounds, non tender, soft Extremities: non-tender Marito Ramires MD June 29, 2019 09:51
--- NOTE | 2019-06-29 10:29 | Nephrology Progress Note ---
Assessment/Plan Problem List: (1) CASSANDRA (acute kidney injury) (2) Anemia in chronic kidney disease (CKD) (3) HTN (hypertension) (4) COVID-19 Assessment Acute renal failure most likely superimposed on chronic kidney disease Suspected COVID-19 virus infection Possible Pneumonia, lymphopenia, elevated AST Cardiomegaly, possible CHF COPD Hypertension Anemia, most likely related to chronic kidney disease Plan June 28: Patient due for dialysis today Stable from renal standpoint to view Continue per consultants June 27: Labs reviewed Due due for dialysis June 28 Discussed with SHANIQUE Dick Continue per consultants Remains intubated on ventilator June 26 Labs reviewed Dialyzed yesterday Started on weaning today Continue to monitor renal parameters June 25: On dialysis now Potassium supplement implemented Continue per consultants Next dialysis June 27June 15: Status unchanged Dialyzed yesterday will dialyze again tomorrow Potassium supplements given Discussed with RN June 23: Due dialysis today Status: Remains intubated on ventilator June 22: Status unchanged Dialyzed yesterday and due for dialysis tomorrow Serum sodium stable today June 21 Remains intubated on ventilator Due dialysis today Emphasized high sodium bath for dialysis June 20: Remains intubated on ventilator Dialyzed June 19 next dialysis June 21 Serum sodium 128, will give 250 cc 3% saline Remains full code Discussed with RN Iron panel ordered June 19: Discussed with RN. Patient due for dialysis today. Continue pulmonary support. Remains full code. June 18: Patient dialyzed yesterday June 17 Serum sodium improved but still low Arrange for dialysis tomorrow June 19 Continue per consultants June 17: Due for dialysis today Today's lab reviewed, low serum sodium noted, Emphasized on high sodium bath to dialysis nurse Discussed with SHANIQUE Yuen June 16: Dialyzed yesterday Remains intubated Labs reviewed, serum sodium 131 Plan to dialyze tomorrow June 17 with high sodium bath Discussed with SHANIQUE Yuen June 6: Due for dialysis today Labs reviewed Discussed with RN Transfuse 1 unit of packed RBCs today for low hemoglobin of 7.1 June 5: Blood pressure well maintained Receive dialysis June 13 next hemodialysis June 15June 4: Discussed with RN in ICU Patient did not receive proper dialysis yesterday due to dialysis catheter malfunction Catheter to be adjusted today and dialyzed to be resumed today Continue per consultants Positive for COVID 28 June 2: Patient now intubated on mechanical ventilation Discussed with SHANIQUE Yuen, today June 12 Patient received dialysis yesterday June 10 next hemodialysis June 12 Blood pressure better maintained Today's labs reviewed Continue per consultants Previously patient received dialysis last evening June 05, next dialysis June 07 which was incomplete due to patient's hypotension Will start on midodrine for blood pressure support. Meanwhile continue other pressors as needed Previously Patient is doing poorly, septic, white blood cells are rising, Hypotension somewhat improved We will keep n.p.o. , NG tube for medications, and change medication to IV as needed Patient remains full code Monitor vancomycin level Previously: Patient pulled out his femoral catheter yesterday June 03 which was reinserted by Dr. Mast Patient scheduled for dialysis again June 04, which again was not done due to dialysis nurse citing catheter malfunction Meanwhile continue management per ID, pulmonary , and psych. Meanwhile white blood cell count is rising. Patient blood pressure borderline low. Will check ABG Previously May 31 : I believe patient need dialysis treatment He however needs to competency assessment if can make decisions or not I will communicate with Dr. Mulligan Previously: Per pulmonary and ID advice Adjust blood pressure medication Renal diet Anemia work-up 2D echocardiogram refused Kidney ultrasound refused Jules catheter Urine studies Per orders Subjective ROS Limited/Unobtainable: Yes Objective Objective Last 24 Hour Vital Signs Date Time Temp Pulse Resp B/P (MAP) Pulse Ox O2 Delivery O2 Flow Rate FiO2 06/29/19 09:00 30 06/29/19 09:00 96 40 165/85 (111) 100 06/29/19 08:47 105 37 30 06/29/19 08:33 100 06/29/19 08:33 91 34 30 30 06/29/19 08:30 30 06/29/19 08:00 Mechanical Ventilator 06/29/19 08:00 99.4 91 26 148/82 (104) 99 06/29/19 07:04 91 29 100 30 87 28 30 06/29/19 07:00 89 26 149/69 (95) 100 06/29/19 07:00 26 149/69 Mechanical Ventilator 30 06/29/19 06:30 83 265 06/29/19 06:00 79 26 142/72 (95) 99 06/29/19 06:00 26 142/72 Mechanical Ventilator 30 06/29/19 06:00 26 122/74 Mechanical Ventilator 30 06/29/19 05:00 26 122/74 Mechanical Ventilator 30 5/19/20 05:00 84 26 122/74 (90) 99 06/29/19 04:00 Mechanical Ventilator 06/29/19 04:00 98.8 82 26 130/71 (90) 99 06/29/19 04:00 26 130/71 Mechanical Ventilator 30 06/29/19 04:00 89 06/29/19 04:00 30 06/29/19 03:32 73 26 100 30 75 26 30 06/29/19 03:00 81 28 130/73 (92) 100 06/29/19 03:00 28 130/73 Mechanical Ventilator 30 06/29/19 02:00 73 26 126/61 (82) 100 06/29/19 02:00 26 126/61 Mechanical Ventilator 30 06/29/19 01:00 26 125/57 Mechanical Ventilator 30 06/29/19 01:00 71 26 125/57 (79) 99 06/29/19 00:00 94 06/29/19 00:00 26 133/73 Mechanical Ventilator 30 06/29/19 00:00 30 06/29/19 00:00 Mechanical Ventilator 06/29/19 00:00 99.1 77 26 133/73 (93) 100 06/28/19 23:30 85 26 100 30 85 26 30 06/28/19 23:00 90 23 147/74 (98) 99 06/28/19 23:00 23 147/74 Mechanical Ventilator 30 06/28/19 23:00 147/74 06/28/19 22:30 76 22 124/62 (82) 100 06/28/19 22:00 79 24 120/64 (82) 100 06/28/19 22:00 24 120/64 Mechanical Ventilator 30 06/28/19 21:30 90 26 140/63 (88) 99 06/28/19 21:00 77 26 122/59 (80) 99 20 21:00 26 122/59 Mechanical Ventilator 30 06/28/19 20:30 83 22 137/67 (90) 99 06/28/19 20:00 99.4 79 26 123/61 (81) 99 20 20:00 Mechanical Ventilator 06/28/19 20:00 26 123/61 Non-Rebreather 30 06/28/19 20:00 30 06/28/19 20:00 80 06/28/19 19:30 85 16 126/60 (82) 99 20 19:00 86 26 100 30 86 26 30 518/20 19:00 26 137/63 Mechanical Ventilator 30 20 19:00 85 22 137/63 (87) 100 18/20 18:30 86 26 140/62 (88) 99 18/20 18:00 83 26 136/63 (87) 100 18/20 18:00 26 136/63 Mechanical Ventilator 30 20 17:30 80 26 128/54 (78) 100 20 17:00 89 26 149/66 (93) 99 20 17:00 26 149/66 Mechanical Ventilator 30 20 16:30 79 25 149/77 (101) 99 20 16:00 30 20 16:00 26 127/61 Mechanical Ventilator 30 20 16:00 74 20 16:00 Mechanical Ventilator 20 16:00 99.2 73 26 127/61 (83) 99 20 15:30 73 26 119/66 (83) 99 06/27/20 15:08 70 26 30 06/27/20 15:00 83 25 147/69 (95) 99 1820 15:00 26 147/69 Mechanical Ventilator 30 06/28/19 14:30 83 26 148/68 (94) 100 18/20 14:00 77 26 142/70 (94) 100 18/20 14:00 26 142/70 Mechanical Ventilator 30 06/28/19 13:30 88 26 139/64 (89) 100 20 13:00 26 130/61 Mechanical Ventilator 30 20 13:00 76 26 130/61 (84) 100 20 12:30 76 26 128/58 (81) 100 20 12:00 99.4 77 26 125/58 (80) 99 20 12:00 26 125/58 Mechanical Ventilator 30 20 12:00 Mechanical Ventilator 18/20 12:00 74 20 11:49 87 26 100 Mechanical Ventilator 30 90 26 30 20 11:00 85 26 127/62 (83) 99 20 11:00 26 127/62 Mechanical Ventilator 30 5/18/20 10:30 92 26 118/63 (81) 99 Intake and Output 06/28/19 06/29/19 19:00 07:00 Intake Total 593.5 ml 445 ml Output Total 125 ml 21 ml Balance 468.5 ml 424 ml IV Total 48.5 ml 60 ml Tube Feeding 385 ml 385 ml Other 160 ml Output Urine Total 125 ml 20 ml Stool Total 1 ml # Bowel Movements 1 1 Laboratory Tests 06/29/19 04:00: White Blood Count 12.5H, Red Blood Count 2.63L, Hemoglobin 7.7L, Hematocrit 24.6L, Mean Corpuscular Volume 94, Mean Corpuscular Hemoglobin 29.4, Mean Corpuscular Hemoglobin Concent 31.3L, Red Cell Distribution Width 18.5H, Platelet Count 402, Mean Platelet Volume 6.3L, Neutrophils (%) (Auto) , Lymphocytes (%) (Auto) , Monocytes (%) (Auto) , Eosinophils (%) (Auto) , Basophils (%) (Auto) , Sodium Level 139, Potassium Level 3.5, Chloride Level 99 , Carbon Dioxide Level 27, Anion Gap 13, Blood Urea Nitrogen 74H, Creatinine 8.3H, Estimat Glomerular Filtration Rate 6.5, Glucose Level 187H, Calcium Level 8.7 Height (Feet): 6 Height (Inches): 1.00 Weight (Pounds): 240 General Appearance: no apparent distress EENT: other - Intubated on ventilator Cardiovascular: tachycardia, arrhythmia Respiratory/Chest: decreased breath sounds Abdomen: distended Objective No change Mic Cole MD June 29, 2019 10:29
--- NOTE | 2019-06-29 12:49 | Cardiac Electrophysiology PN ---
Assessment/Plan Assessment/Plan 1. Elevated troponin. Troponin on May 27 and May 30 were negative, on June 01, it was elevated at 0.074. Repeat 0.05. Due to renal failure. On Aspirin. EF 60%. 2. S/P Septic shock. Off Levo 3. ESRD, on hemodialysis per Dr. Cole. 4. COVID-19 positive pneumonia. On the Vent with 30% Fio2. Fu by Dr. Mckeon.Failed weaning 5. MRSA carrier. 6. COPD. 7. Anemia. 8. Depression. DW RN Subjective Subjective Is Covid positive x 3 in isolation in ICU, intubated on 30% Fio2, PEEP 5. Failed weaning. Off pressors.Getting HD Objective Last 24 Hour Vital Signs Date Time Temp Pulse Resp B/P (MAP) Pulse Ox O2 Delivery O2 Flow Rate FiO2 06/29/19 12:00 Mechanical Ventilator 06/29/19 11:14 121 30 30 06/29/19 11:00 26 136/73 Mechanical Ventilator 30 06/29/19 11:00 119 35 136/73 (94) 90 06/29/19 10:45 108 21 115/61 (79) 94 06/29/19 10:30 101 18 117/75 (89) 95 06/29/19 10:23 103 17 147/75 (99) 97 06/29/19 10:00 107 19 154/76 (102) 97 06/29/19 10:00 26 154/76 Mechanical Ventilator 30 06/29/19 09:00 30 06/29/19 09:00 40 165/85 Mechanical Ventilator 30 06/29/19 09:00 96 40 165/85 (111) 100 06/29/19 08:47 105 37 30 06/29/19 08:33 100 06/29/19 08:33 91 34 30 30 06/29/19 08:30 30 06/29/19 08:00 Mechanical Ventilator 06/29/19 08:00 30 148/82 Mechanical Ventilator 30 06/29/19 08:00 99.4 91 26 148/82 (104) 99 06/29/19 07:04 91 29 100 30 87 28 30 06/29/19 07:00 89 26 149/69 (95) 100 06/29/19 07:00 26 149/69 Mechanical Ventilator 30 06/29/19 06:30 83 265 06/29/19 06:00 79 26 142/72 (95) 99 06/29/19 06:00 26 142/72 Mechanical Ventilator 30 06/29/19 06:00 26 122/74 Mechanical Ventilator 30 06/29/19 05:00 26 122/74 Mechanical Ventilator 30 06/29/19 05:00 84 26 122/74 (90) 99 06/29/19 04:00 Mechanical Ventilator 06/29/19 04:00 98.8 82 26 130/71 (90) 99 06/29/19 04:00 26 130/71 Mechanical Ventilator 30 06/29/19 04:00 89 06/29/19 04:00 30 06/29/19 03:32 73 26 100 30 75 26 30 06/29/19 03:00 81 28 130/73 (92) 100 06/29/19 03:00 28 130/73 Mechanical Ventilator 30 06/29/19 02:00 73 26 126/61 (82) 100 06/29/19 02:00 26 126/61 Mechanical Ventilator 30 06/29/19 01:00 26 125/57 Mechanical Ventilator 30 06/29/19 01:00 71 26 125/57 (79) 99 06/29/19 00:00 94 06/29/19 00:00 26 133/73 Mechanical Ventilator 30 06/29/19 00:00 30 06/29/19 00:00 Mechanical Ventilator 06/29/19 00:00 99.1 77 26 133/73 (93) 100 06/28/19 23:30 85 26 100 30 85 26 30 06/28/19 23:00 90 23 147/74 (98) 99 06/28/19 23:00 23 147/74 Mechanical Ventilator 30 06/28/19 23:00 147/74 06/28/19 22:30 76 22 124/62 (82) 100 06/28/19 22:00 79 24 120/64 (82) 100 06/28/19 22:00 24 120/64 Mechanical Ventilator 30 06/28/19 21:30 90 26 140/63 (88) 99 18 21:00 77 26 122/59 (80) 99 1820 21:00 26 122/59 Mechanical Ventilator 30 06/28/19 20:30 83 22 137/67 (90) 99 06/28/19 20:00 99.4 79 26 123/61 (81) 99 20 20:00 Mechanical Ventilator 20 20:00 26 123/61 Non-Rebreather 30 20 20:00 30 20 20:00 80 06/28/19 19:30 85 16 126/60 (82) 99 06/28/19 19:00 86 26 100 30 86 26 30 20 19:00 26 137/63 Mechanical Ventilator 30 06/28/19 19:00 85 22 137/63 (87) 100 06/28/19 18:30 86 26 140/62 (88) 99 06/28/19 18:00 83 26 136/63 (87) 100 20 18:00 26 136/63 Mechanical Ventilator 30 06/28/19 17:30 80 26 128/54 (78) 100 20 17:00 89 26 149/66 (93) 99 06/28/19 17:00 26 149/66 Mechanical Ventilator 30 06/28/19 16:30 79 25 149/77 (101) 99 06/28/19 16:00 30 20 16:00 26 127/61 Mechanical Ventilator 30 06/28/19 16:00 74 1820 16:00 Mechanical Ventilator 06/28/19 16:00 99.2 73 26 127/61 (83) 99 06/28/19 15:30 73 26 119/66 (83) 99 20 15:08 70 26 30 06/28/19 15:00 83 25 147/69 (95) 99 06/28/19 15:00 26 147/69 Mechanical Ventilator 30 06/28/19 14:30 83 26 148/68 (94) 100 20 14:00 77 26 142/70 (94) 100 20 14:00 26 142/70 Mechanical Ventilator 30 06/28/19 13:30 88 26 139/64 (89) 100 20 13:00 26 130/61 Mechanical Ventilator 30 06/28/19 13:00 76 26 130/61 (84) 100 Intake and Output 06/28/19 06/29/19 19:00 07:00 Intake Total 593.5 ml 445 ml Output Total 125 ml 21 ml Balance 468.5 ml 424 ml IV Total 48.5 ml 60 ml Tube Feeding 385 ml 385 ml Other 160 ml Output Urine Total 125 ml 20 ml Stool Total 1 ml # Bowel Movements 1 1 Laboratory Tests Test 06/29/19 04:00 White Blood Count 12.5 K/UL (4.8-10.8) H Red Blood Count 2.63 M/UL (4.70-6.10) L Hemoglobin 7.7 G/DL (14.2-18.0) L Hematocrit 24.6 % (42.0-52.0) L Mean Corpuscular Volume 94 FL (80-99) Mean Corpuscular Hemoglobin 29.4 PG (27.0-31.0) Mean Corpuscular Hemoglobin Concent 31.3 G/DL (32.0-36.0) L Red Cell Distribution Width 18.5 % (11.6-14.8) H Platelet Count 402 K/UL (150-450) Mean Platelet Volume 6.3 FL (6.5-10.1) L Neutrophils (%) (Auto) % (45.0-75.0) Lymphocytes (%) (Auto) % (20.0-45.0) Monocytes (%) (Auto) % (1.0-10.0) Eosinophils (%) (Auto) % (0.0-3.0) Basophils (%) (Auto) % (0.0-2.0) Sodium Level 139 MMOL/L (136-145) Potassium Level 3.5 MMOL/L (3.5-5.1) Chloride Level 99 MMOL/L (98-107) Carbon Dioxide Level 27 MMOL/L (21-32) Anion Gap 13 mmol/L (5-15) Blood Urea Nitrogen 74 mg/dL (7-18) H Creatinine 8.3 MG/DL (0.55-1.30) H Estimat Glomerular Filtration Rate 6.5 mL/min (>60) Glucose Level 187 MG/DL (74-106) H Calcium Level 8.7 MG/DL (8.5-10.1) Objective HEAD AND NECK: No JVD. Orally intubated LUNGS: Decreased breath sounds. CARDIOVASCULAR: Regular S1 and S2. Tachycardic. ABDOMEN: Soft. EXTREMITIES: No pitting edema. New Left [facility] Gio Engle MD June 29, 2019 12:49
--- NOTE | 2019-06-29 13:32 | Surgery Progress Note ---
Surgery Progress Note Subjective Procedure Performed Right femoral temporary hemodialysis catheter insertion Additional Comments il appearing wbc anemia getting HD now barely tolerating prognosisguarded Objective Last 24 Hour Vital Signs Date Time Temp Pulse Resp B/P (MAP) Pulse Ox O2 Delivery O2 Flow Rate FiO2 06/29/19 13:00 30 176/94 Mechanical Ventilator 30 06/29/19 13:00 123 51 176/94 (121) 94 06/29/19 12:45 122 35 118/70 (86) 94 06/29/19 12:30 123 34 114/58 (76) 96 06/29/19 12:15 123 40 124/68 (86) 97 06/29/19 12:00 100.0 119 53 134/80 (98) 95 06/29/19 12:00 50 134/80 Mechanical Ventilator 30 06/29/19 12:00 Mechanical Ventilator 06/29/19 11:45 116 45 144/75 (98) 92 06/29/19 11:30 117 50 158/84 (108) 91 06/29/19 11:14 121 30 30 06/29/19 11:00 26 136/73 Mechanical Ventilator 30 06/29/19 11:00 119 35 136/73 (94) 90 06/29/19 10:45 108 21 115/61 (79) 94 06/29/19 10:30 101 18 117/75 (89) 95 06/29/19 10:23 103 17 147/75 (99) 97 06/29/19 10:00 107 19 154/76 (102) 97 06/29/19 10:00 26 154/76 Mechanical Ventilator 30 06/29/19 09:00 30 06/29/19 09:00 40 165/85 Mechanical Ventilator 30 06/29/19 09:00 96 40 165/85 (111) 100 06/29/19 08:47 105 37 30 06/29/19 08:33 100 06/29/19 08:33 91 34 30 30 06/29/19 08:30 30 06/29/19 08:00 Mechanical Ventilator 06/29/19 08:00 30 148/82 Mechanical Ventilator 30 06/29/19 08:00 99.4 91 26 148/82 (104) 99 06/29/19 07:04 91 29 100 30 87 28 30 06/29/19 07:00 89 26 149/69 (95) 100 06/29/19 07:00 26 149/69 Mechanical Ventilator 30 06/29/19 06:30 83 265 06/29/19 06:00 79 26 142/72 (95) 99 06/29/19 06:00 26 142/72 Mechanical Ventilator 30 06/29/19 06:00 26 122/74 Mechanical Ventilator 30 06/29/19 05:00 26 122/74 Mechanical Ventilator 30 06/29/19 05:00 84 26 122/74 (90) 99 06/29/19 04:00 Mechanical Ventilator 06/29/19 04:00 98.8 82 26 130/71 (90) 99 06/29/19 04:00 26 130/71 Mechanical Ventilator 30 06/29/19 04:00 89 06/29/19 04:00 30 06/29/19 03:32 73 26 100 30 75 26 30 06/29/19 03:00 81 28 130/73 (92) 100 06/29/19 03:00 28 130/73 Mechanical Ventilator 30 06/29/19 02:00 73 26 126/61 (82) 100 06/29/19 02:00 26 126/61 Mechanical Ventilator 30 06/29/19 01:00 26 125/57 Mechanical Ventilator 30 06/29/19 01:00 71 26 125/57 (79) 99 06/29/19 00:00 94 06/29/19 00:00 26 133/73 Mechanical Ventilator 30 06/29/19 00:00 30 06/29/19 00:00 Mechanical Ventilator 06/29/19 00:00 99.1 77 26 133/73 (93) 100 06/28/19 23:30 85 26 100 30 85 26 30 06/28/19 23:00 90 23 147/74 (98) 99 06/28/19 23:00 23 147/74 Mechanical Ventilator 30 06/28/19 23:00 147/74 06/28/19 22:30 76 22 124/62 (82) 100 06/28/19 22:00 79 24 120/64 (82) 100 06/28/19 22:00 24 120/64 Mechanical Ventilator 30 06/28/19 21:30 90 26 140/63 (88) 99 06/28/19 21:00 77 26 122/59 (80) 99 06/28/19 21:00 26 122/59 Mechanical Ventilator 30 06/28/19 20:30 83 22 137/67 (90) 99 06/28/19 20:00 99.4 79 26 123/61 (81) 99 06/28/19 20:00 Mechanical Ventilator 06/28/19 20:00 26 123/61 Non-Rebreather 30 06/28/19 20:00 30 06/28/19 20:00 80 06/28/19 19:30 85 16 126/60 (82) 99 06/28/19 19:00 86 26 100 30 86 26 30 06/28/19 19:00 26 137/63 Mechanical Ventilator 30 06/28/19 19:00 85 22 137/63 (87) 100 06/28/19 18:30 86 26 140/62 (88) 99 06/28/19 18:00 83 26 136/63 (87) 100 06/28/19 18:00 26 136/63 Mechanical Ventilator 30 06/28/19 17:30 80 26 128/54 (78) 100 06/28/19 17:00 89 26 149/66 (93) 99 06/28/19 17:00 26 149/66 Mechanical Ventilator 30 06/28/19 16:30 79 25 149/77 (101) 99 06/28/19 16:00 30 06/28/19 16:00 26 127/61 Mechanical Ventilator 30 06/28/19 16:00 74 06/28/19 16:00 Mechanical Ventilator 06/28/19 16:00 99.2 73 26 127/61 (83) 99 06/28/19 15:30 73 26 119/66 (83) 99 06/28/19 15:08 70 26 30 06/28/19 15:00 83 25 147/69 (95) 99 06/28/19 15:00 26 147/69 Mechanical Ventilator 30 06/28/19 14:30 83 26 148/68 (94) 100 06/28/19 14:00 77 26 142/70 (94) 100 06/28/19 14:00 26 142/70 Mechanical Ventilator 30 I&O Intake and Output 06/28/19 06/29/19 19:00 07:00 Intake Total 593.5 ml 445 ml Output Total 125 ml 21 ml Balance 468.5 ml 424 ml IV Total 48.5 ml 60 ml Tube Feeding 385 ml 385 ml Other 160 ml Output Urine Total 125 ml 20 ml Stool Total 1 ml # Bowel Movements 1 1 Dressing: other Wound: other Drains: other Cardiovascular: RSR Respiratory: decreased breath sounds Abdomen: soft, non-tender, present bowel sounds Extremities: no cyanosis Laboratory Tests Test 06/29/19 04:00 White Blood Count 12.5 K/UL (4.8-10.8) H Red Blood Count 2.63 M/UL (4.70-6.10) L Hemoglobin 7.7 G/DL (14.2-18.0) L Hematocrit 24.6 % (42.0-52.0) L Mean Corpuscular Volume 94 FL (80-99) Mean Corpuscular Hemoglobin 29.4 PG (27.0-31.0) Mean Corpuscular Hemoglobin Concent 31.3 G/DL (32.0-36.0) L Red Cell Distribution Width 18.5 % (11.6-14.8) H Platelet Count 402 K/UL (150-450) Mean Platelet Volume 6.3 FL (6.5-10.1) L Neutrophils (%) (Auto) % (45.0-75.0) Lymphocytes (%) (Auto) % (20.0-45.0) Monocytes (%) (Auto) % (1.0-10.0) Eosinophils (%) (Auto) % (0.0-3.0) Basophils (%) (Auto) % (0.0-2.0) Sodium Level 139 MMOL/L (136-145) Potassium Level 3.5 MMOL/L (3.5-5.1) Chloride Level 99 MMOL/L (98-107) Carbon Dioxide Level 27 MMOL/L (21-32) Anion Gap 13 mmol/L (5-15) Blood Urea Nitrogen 74 mg/dL (7-18) H Creatinine 8.3 MG/DL (0.55-1.30) H Estimat Glomerular Filtration Rate 6.5 mL/min (>60) Glucose Level 187 MG/DL (74-106) H Calcium Level 8.7 MG/DL (8.5-10.1) Plan Problems: (1) Suspected COVID-19 virus infection (2) HTN (hypertension) (3) CASSANDRA (acute kidney injury) Assessment & Plan: Needs urgent HD needs access patient okay and consented see note will follow with recs new line placed discussed with team and nephrology HD line functional when checked has TPA now please use appropriately Cathflo used again this flow during dialysis on 430 was low. Will monitor may need line change 5/4 plan for HD as per renal may need to take fluid off with HD edema anasarca dressings saturated and changed will monitor (4) Anemia in chronic kidney disease (CKD) (5) Anemia (6) Renal failure (7) Suspected COVID-19 virus infection Assessment & Plan: Pt deconditioned and despite all skin preventions Pt noted to have developed several pressure injuries. . Stable dry eschar noted to clefts of R and L ears. No erythema noted . DTPI noted to L trochanter. Base of injury is maroon in colour with marginal erythema along borders. Partially opened DTPI Sacrum, R and L Buttocks. Base of wound is maroon with two small open wounds L sacrum and L buttocks. Pt has an APM/MOMO Mattress overlay and is being positioned with pillows as per tolerance and within protocols. Tx.Plan: Apply Cavilon Skin Barrier to both ears Daily and prn. Apply Moisture Barrier Paste to Sacrum,R and L Buttocks. Cover with Optifoam drsgs. Change every 3 days and PRN. Apply Cavilon Skin Barrier to R and L trochanter. Cover each site with Optifoam drsgs.Change every 7 days and PRN. Apply Cavilon Skin Barrier to both heels. Cover each heel with Optifoam drsg. Change every 7 days and prn. Off-load heels with pillow. Reposition at least every 2hours or as tolerated. APM/MOMO Mattress overlay. (8) COVID-19 Assessment & Plan: COVID + c diff negative febrile leukocytosis renal insufficiency see above cont resp care Rx as per ID worsening on vent support now cxr noted on pressors prognosis guarded repeat covid ++ weaning vent and pressors off slowly showing improvement Yaniv Mast June 29, 2019 13:32
--- NOTE | 2019-06-29 18:47 | General Progress Note ---
Assessment/Plan Problem List: (1) Anemia ICD Codes: D64.9 - Anemia, unspecified SNOMED: 713380751 (2) Renal failure ICD Codes: N19 - Unspecified kidney failure SNOMED: 57113092 (3) Suspected COVID-19 virus infection ICD Codes: R68.89 - Other general symptoms and signs SNOMED: 938919921 (4) HTN (hypertension) ICD Codes: I10 - Essential (primary) hypertension SNOMED: 78358179 (5) CASSANDRA (acute kidney injury) ICD Codes: N17.9 - Acute kidney failure, unspecified SNOMED: 1079991, 16736878 (6) Anemia in chronic kidney disease (CKD) ICD Codes: N18.9 - Chronic kidney disease, unspecified; D63.1 - Anemia in chronic kidney disease SNOMED: 699176446 (7) Suspected COVID-19 virus infection ICD Codes: R68.89 - Other general symptoms and signs SNOMED: 964671528 Status: unchanged Assessment/Plan: hypokalemia wrosening ANEMIA renal failure pna covid positve resp failure sepsis persistent leukocytosis afebrile Subjective ROS Limited/Unobtainable: Yes Allergies: Coded Allergies: No Known Allergies (Unverified , 05/28/19) Objective Last 24 Hour Vital Signs Date Time Temp Pulse Resp B/P (MAP) Pulse Ox O2 Delivery O2 Flow Rate FiO2 06/29/19 18:15 88 24 107/52 (70) 97 06/29/19 18:00 85 26 101/52 (68) 97 06/29/19 18:00 26 101/52 Mechanical Ventilator 30 06/29/19 17:30 89 26 108/51 (70) 97 06/29/19 17:00 26 156/79 Mechanical Ventilator 30 06/29/19 17:00 107 23 156/79 (104) 97 06/29/19 16:30 91 0 107/54 (71) 95 06/29/19 16:00 99.7 95 0 109/55 (73) 94 06/29/19 16:00 26 109/55 Mechanical Ventilator 30 06/29/19 16:00 Mechanical Ventilator 06/29/19 16:00 30 06/29/19 16:00 98 06/29/19 15:30 97 26 104/55 (71) 92 06/29/19 15:09 90 26 30 06/29/19 15:00 26 112/61 Mechanical Ventilator 30 06/29/19 15:00 100 26 112/61 (78) 90 06/29/19 14:30 102 26 104/61 (75) 86 06/29/19 14:00 26 118/67 Mechanical Ventilator 30 06/29/19 14:00 111 26 118/67 (84) 87 06/29/19 13:00 30 176/94 Mechanical Ventilator 30 06/29/19 13:00 123 51 176/94 (121) 94 06/29/19 12:45 122 35 118/70 (86) 94 06/29/19 12:30 123 34 114/58 (76) 96 06/29/19 12:15 123 40 124/68 (86) 97 06/29/19 12:00 100.0 119 53 134/80 (98) 95 06/29/19 12:00 50 134/80 Mechanical Ventilator 30 06/29/19 12:00 Mechanical Ventilator 06/29/19 12:00 115 06/29/19 12:00 30 06/29/19 11:45 116 45 144/75 (98) 92 06/29/19 11:30 117 50 158/84 (108) 91 06/29/19 11:14 121 30 30 06/29/19 11:00 26 136/73 Mechanical Ventilator 30 06/29/19 11:00 119 35 136/73 (94) 90 06/29/19 10:45 108 21 115/61 (79) 94 06/29/19 10:30 101 18 117/75 (89) 95 06/29/19 10:23 103 17 147/75 (99) 97 06/29/19 10:00 107 19 154/76 (102) 97 06/29/19 10:00 26 154/76 Mechanical Ventilator 30 06/29/19 09:00 30 06/29/19 09:00 40 165/85 Mechanical Ventilator 30 06/29/19 09:00 96 40 165/85 (111) 100 06/29/19 08:47 105 37 30 06/29/19 08:33 100 06/29/19 08:33 91 34 30 30 06/29/19 08:30 30 06/29/19 08:00 Mechanical Ventilator 06/29/19 08:00 30 148/82 Mechanical Ventilator 30 06/29/19 08:00 99.4 91 26 148/82 (104) 99 06/29/19 08:00 94 06/29/19 07:04 91 29 100 30 87 28 30 06/29/19 07:00 89 26 149/69 (95) 100 06/29/19 07:00 26 149/69 Mechanical Ventilator 30 06/29/19 06:30 83 265 06/29/19 06:00 79 26 142/72 (95) 99 06/29/19 06:00 26 142/72 Mechanical Ventilator 30 06/29/19 06:00 26 122/74 Mechanical Ventilator 30 06/29/19 05:00 26 122/74 Mechanical Ventilator 30 06/29/19 05:00 84 26 122/74 (90) 99 06/29/19 04:00 Mechanical Ventilator 06/29/19 04:00 98.8 82 26 130/71 (90) 99 06/29/19 04:00 26 130/71 Mechanical Ventilator 30 06/29/19 04:00 89 06/29/19 04:00 30 06/29/19 03:32 73 26 100 30 75 26 30 06/29/19 03:00 81 28 130/73 (92) 100 06/29/19 03:00 28 130/73 Mechanical Ventilator 30 06/29/19 02:00 73 26 126/61 (82) 100 06/29/19 02:00 26 126/61 Mechanical Ventilator 30 06/29/19 01:00 26 125/57 Mechanical Ventilator 30 06/29/19 01:00 71 26 125/57 (79) 99 06/29/19 00:00 94 06/29/19 00:00 26 133/73 Mechanical Ventilator 30 06/29/19 00:00 30 06/29/19 00:00 Mechanical Ventilator 06/29/19 00:00 99.1 77 26 133/73 (93) 100 06/28/19 23:30 85 26 100 30 85 26 30 06/28/19 23:00 90 23 147/74 (98) 99 06/28/19 23:00 23 147/74 Mechanical Ventilator 30 06/28/19 23:00 147/74 06/28/19 22:30 76 22 124/62 (82) 100 06/28/19 22:00 79 24 120/64 (82) 100 06/28/19 22:00 24 120/64 Mechanical Ventilator 30 06/28/19 21:30 90 26 140/63 (88) 99 06/28/19 21:00 77 26 122/59 (80) 99 06/28/19 21:00 26 122/59 Mechanical Ventilator 30 06/28/19 20:30 83 22 137/67 (90) 99 06/28/19 20:00 99.4 79 26 123/61 (81) 99 06/28/19 20:00 Mechanical Ventilator 06/28/19 20:00 26 123/61 Non-Rebreather 30 06/28/19 20:00 30 06/28/19 20:00 80 06/28/19 19:30 85 16 126/60 (82) 99 06/28/19 19:00 86 26 100 30 86 26 30 06/28/19 19:00 26 137/63 Mechanical Ventilator 30 06/28/19 19:00 85 22 137/63 (87) 100 Intake and Output 06/28/19 06/29/19 19:00 07:00 Intake Total 593.5 ml 445 ml Output Total 125 ml 21 ml Balance 468.5 ml 424 ml IV Total 48.5 ml 60 ml Tube Feeding 385 ml 385 ml Other 160 ml Output Urine Total 125 ml 20 ml Stool Total 1 ml # Bowel Movements 1 1 Laboratory Tests 06/29/19 04:00: White Blood Count 12.5H, Red Blood Count 2.63L, Hemoglobin 7.7L, Hematocrit 24.6L, Mean Corpuscular Volume 94, Mean Corpuscular Hemoglobin 29.4, Mean Corpuscular Hemoglobin Concent 31.3L, Red Cell Distribution Width 18.5H, Platelet Count 402, Mean Platelet Volume 6.3L, Neutrophils (%) (Auto) , Lymphocytes (%) (Auto) , Monocytes (%) (Auto) , Eosinophils (%) (Auto) , Basophils (%) (Auto) , Sodium Level 139, Potassium Level 3.5, Chloride Level 99 , Carbon Dioxide Level 27, Anion Gap 13, Blood Urea Nitrogen 74H, Creatinine 8.3H, Estimat Glomerular Filtration Rate 6.5, Glucose Level 187H, Calcium Level 8.7 Height (Feet): 6 Height (Inches): 1.00 Weight (Pounds): 240 Karishma Mulligan MD June 29, 2019 18:47
[2019-06-29] MEDS: Dyna-Hex 2% Top Sol 2oz TOPIC SCH (20:10)
[2019-06-29] MEDS: NOREPINEPHRINE BITARTRATE IV SCH ×3 (23:00)
[2019-06-29] MEDS: D5W IV SCH ×3 (23:00)
[2019-06-30] VITALS (46 sets, daily range): BP systolic 114–159; BP diastolic 53–115
--- NOTE | 2019-06-30 00:08 | Pulmonolgy Critical Care Note ---
Critical Care - Asmt/Plan Assessment/Plan: Pulmonary CCM Progress Note HPI: Patient is a 68 year old man, care home resident, admitted c/o shortness of breath, cough, noted to have Covid 19 Pneumonia, Respiratory Failure S/p intubation, CXR stable ETT adjusted Septic Shock, pressors off Preserved EF FIO2 40%-50%, P5, adequate O2 sats, remains on ACVC, did not tolerate weaning, less sedated, minimal secretions HD tolerated today Hyponatremia stable Anemic ID following See earlier on 06/29/2019 Past Medical History: COPD, CKD, Hypertension, Anemia Hypotension requiring pressors, in ICU Persistently elevated WCC Allergies: No Known Allergies Improving Pulmonary Status on HD Physical Exam Vital Signs Noted Sedated on ventilator WDWN, no distress HEENT: NCAT,moist mm Chest: Occasional rhonchi Heart: HS1, HS2, RRR Abdomen: SNTND, no masses Extremities: Well perfused, no edema [employer]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: No focal signs, no seizures, sedated Impression: COVID-19 virus infection Pneumonia Respiratory failure on ventilator Volume overload improving - on HD Hypotension on pressors Cardiomegaly Lymphopenia Elevated AST COPD Chronic Kidney Disease - HD H/o Hypertension Worsening anemia Plan: Antibiotics per ID HD Pressors PRN ACVC - wean as tolerated once pressors reduced/off 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 Monitor cultures/viral studies PPX Hemodialysis per Renal Psychiatry following [facility] - [facility] requested for when available, [facility] - not available as yet Laboratory Tests Noted: CXR: Hypoventilatory exam, interstitial changes, cardiomegaly, improving infiltrates Subjective ROS Limited/Unobtainable: No Constitutional: Denies: fever Respiratory: Reports: dry cough, shortness of breath Gastrointestinal/Abdominal: Reports: diarrhea, other - colace was stopped Psychiatric: Reports: other - refuses labs Allergies: Coded Allergies: No Known Allergies (Unverified , 05/28/19) All Systems: reviewed and negative except above Labs noted Critical Care - Objective Last 24 Hour Vital Signs Date Time Temp Pulse Resp B/P (MAP) Pulse Ox O2 Delivery O2 Flow Rate FiO2 06/29/19 23:01 25 168/80 Mechanical Ventilator 30 06/29/19 23:00 80 16 132/59 (83) 100 06/29/19 23:00 16 132/59 Mechanical Ventilator 30 5/19/20 23:00 168/80 5 22:44 84 26 100 Mechanical Ventilator 30 83 26 30 20 22:30 75 25 122/57 (78) 100 520 22:00 74 25 120/61 (80) 100 520 22:00 25 120/61 Mechanical Ventilator 30 20 21:30 76 25 137/60 (85) 100 20 21:00 25 133/56 Mechanical Ventilator 30 20 21:00 87 25 133/56 (81) 100 19/20 20:30 78 26 116/57 (76) 99 19/20 20:00 87 20 20:00 Mechanical Ventilator 06/29/19 20:00 30 20 20:00 24 125/55 Mechanical Ventilator 30 06/29/19 20:00 99.5 88 24 125/55 (78) 99 20 19:34 74 26 99 Mechanical Ventilator 30 84 26 30 06/29/19 19:30 88 24 137/65 (89) 100 06/29/19 19:00 26 93/51 Mechanical Ventilator 30 06/29/19 19:00 75 26 93/51 (65) 98 19/20 18:15 88 24 107/52 (70) 97 20 18:00 85 26 101/52 (68) 97 20 18:00 26 101/52 Mechanical Ventilator 30 06/29/19 17:30 89 26 108/51 (70) 97 06/28/20 17:00 26 156/79 Mechanical Ventilator 30 06/29/19 17:00 107 23 156/79 (104) 97 06/28/20 16:30 91 0 107/54 (71) 95 06/28/20 16:00 99.7 95 0 109/55 (73) 94 20 16:00 26 109/55 Mechanical Ventilator 30 20 16:00 Mechanical Ventilator 20 16:00 30 20 16:00 98 20 15:30 97 26 104/55 (71) 92 19/20 15:09 90 26 30 20 15:00 26 112/61 Mechanical Ventilator 30 20 15:00 100 26 112/61 (78) 90 5//20 14:30 102 26 104/61 (75) 86 06/29/19 14:00 26 118/67 Mechanical Ventilator 30 06/29/19 14:00 111 26 118/67 (84) 87 06/29/19 13:00 30 176/94 Mechanical Ventilator 30 06/29/19 13:00 123 51 176/94 (121) 94 06/29/19 12:45 122 35 118/70 (86) 94 06/29/19 12:30 123 34 114/58 (76) 96 06/29/19 12:15 123 40 124/68 (86) 97 06/29/19 12:00 100.0 119 53 134/80 (98) 95 06/29/19 12:00 50 134/80 Mechanical Ventilator 30 06/29/19 12:00 Mechanical Ventilator 06/29/19 12:00 115 06/29/19 12:00 30 06/29/19 11:45 116 45 144/75 (98) 92 06/29/19 11:30 117 50 158/84 (108) 91 06/29/19 11:14 121 30 30 06/29/19 11:00 26 136/73 Mechanical Ventilator 30 06/29/19 11:00 119 35 136/73 (94) 90 06/29/19 10:45 108 21 115/61 (79) 94 06/29/19 10:30 101 18 117/75 (89) 95 06/29/19 10:23 103 17 147/75 (99) 97 06/29/19 10:00 107 19 154/76 (102) 97 06/29/19 10:00 26 154/76 Mechanical Ventilator 30 06/29/19 09:00 30 06/29/19 09:00 40 165/85 Mechanical Ventilator 30 06/29/19 09:00 96 40 165/85 (111) 100 06/29/19 08:47 105 37 30 06/29/19 08:33 100 06/29/19 08:33 91 34 30 30 06/29/19 08:30 30 06/29/19 08:00 Mechanical Ventilator 06/29/19 08:00 30 148/82 Mechanical Ventilator 30 06/29/19 08:00 99.4 91 26 148/82 (104) 99 06/29/19 08:00 94 06/29/19 07:04 91 29 100 30 87 28 30 06/29/19 07:00 89 26 149/69 (95) 100 06/29/19 07:00 26 149/69 Mechanical Ventilator 30 06/29/19 06:30 83 265 06/29/19 06:00 79 26 142/72 (95) 99 06/29/19 06:00 26 142/72 Mechanical Ventilator 30 06/29/19 06:00 26 122/74 Mechanical Ventilator 30 06/29/19 05:00 26 122/74 Mechanical Ventilator 30 06/29/19 05:00 84 26 122/74 (90) 99 06/29/19 04:00 Mechanical Ventilator 06/29/19 04:00 98.8 82 26 130/71 (90) 99 06/29/19 04:00 26 130/71 Mechanical Ventilator 30 06/29/19 04:00 89 06/29/19 04:00 30 06/29/19 03:32 73 26 100 30 75 26 30 06/29/19 03:00 81 28 130/73 (92) 100 06/29/19 03:00 28 130/73 Mechanical Ventilator 30 06/29/19 02:00 73 26 126/61 (82) 100 06/29/19 02:00 26 126/61 Mechanical Ventilator 30 06/29/19 01:00 26 125/57 Mechanical Ventilator 30 06/29/19 01:00 71 26 125/57 (79) 99 Accucheck: 169 Critical Care - Subjective ROS Limited/Unobtainable: No Condition: improving IV Access: central FI02: 30 Vent Support Breath Rate: 26 Vent Support Mode: AC Vent Tidal Volume: 500 Sputum Amount: Small PEEP: 5.0 PIP: 34 Tube Feeding Amount: 35 I&O: Intake and Output 06/29/19 06/30/19 19:00 07:00 Intake Total 545 ml 280 ml Output Total 2055 ml 0 ml Balance -1510 ml 280 ml Free Water 100 ml IV Total 95 ml 40 ml Tube Feeding 350 ml 140 ml Other 100 ml Output Urine Total 55 ml 0 ml Hemodialysis UF 2000 ml # Bowel Movements 2 ET-Tube: 7.5 ET Position: 26 Arturo Mckeon MD June 30, 2019 00:08
[2019-06-30] MEDS: Albuterol 90mcg Inhaler 8gm INH SCH ×6 (02:39→22:49)
[2019-06-30] MEDS: Renvela 800mg Pkt NG SCH ×3 (05:05→21:24)
[2019-06-30 05:31] LABS: BASOPHILS % (AUTO) 0.7 % (0.0-2.0); HEMATOCRIT 25.9 % (42.0-52.0); HEMOGLOBIN 8.2 G/DL (14.2-18.0); LYMPHOCYTES % (AUTO) 11.1 % (20.0-45.0); MEAN CORPUSCULAR VOLUME 94 FL (80-99); MONOCYTES % (AUTO) 4.4 % (1.0-10.0); NEUTROPHILS % (AUTO) 82.8 % (45.0-75.0); PLATELET COUNT 389 K/UL (150-450); RED BLOOD COUNT 2.77 M/UL (4.70-6.10); RED CELL DISTRIBUTION WIDTH 18.1 % (11.6-14.8); WHITE BLOOD COUNT 12.8 K/UL (4.8-10.8)
[2019-06-30 05:56] LABS: ALANINE AMINOTRANSFERASE 11 U/L (12-78); ALBUMIN 2.2 G/DL (3.4-5.0); ALBUMIN/GLOBULIN RATIO 0.4 (1.0-2.7); ALKALINE PHOSPHATASE 95 U/L (46-116); ANION GAP 12 mmol/L (5-15); ASPARTATE AMINO TRANSFERASE 29 U/L (15-37); BILIRUBIN,TOTAL 0.3 MG/DL (0.2-1.0); BLOOD UREA NITROGEN 56 mg/dL (7-18); CALCIUM 9.2 MG/DL (8.5-10.1); CARBON DIOXIDE 30 MMOL/L (21-32); CHLORIDE 98 MMOL/L (98-107); CREATININE 6.8 MG/DL (0.55-1.30); PHOSPHORUS 4.1 MG/DL (2.5-4.9); POTASSIUM 4.1 MMOL/L (3.5-5.1); SODIUM 140 MMOL/L (136-145)
[2019-06-30] MEDS: NovoLOG Insulin Flexpen SUBQ SCH ×4 (06:00→23:57)
--- NOTE | 2019-06-30 09:16 | Hematology/Onc Progress Note ---
Assessment/Plan Assessment/Plan Assessment and Recs: # Anemia of chronic disease, likely related ot underlying kidney disease has COIVD19++ --> hgb trend 9-->8-->7.3-->7.9-->6.8->9.5-->10->8.3-->7.7-->7.1-->8.9->8.8->7.7 -->8.1 ->7.9-->7.7 -->8.2 --> transfuse as needed, hgb goal >7 --> no evidence of hemolysis --> peripheral smear has been reviewed --> epogen started three x a week ==>> transfuse 06/08, 06/15, # Leukocytosis likely related to suspected COVID-19 virus infection --> completed plaquenil --> trend smear as needed --> initially 4-->11-->14.5-->21-->26-->21->24--.28-->23-->19-->16.2-->21--> 11.2 -->12.5 --> pulm is aware --> on abx cefepime/vanc->zosyn/vanc-->off --> pressors as needed --> 06/27 covid 19++ # Thrombocytopenia/Lymphopenia --> likely related to covid19 --> plt 129k-->186k-->251-->285-->384 # Respiratory failure with covid19+ --> s/p vent # Possible Pneumonia --> abx completed # Cardiomegaly # Transaminitis with Elevated AST # COPD # Chronic Kidney Disease --> per renal hd # Hypertension # Dvt ppx lovenox Appreciate consultation and dw Rn Subjective Allergies: Coded Allergies: No Known Allergies (Unverified , 05/28/19) Subjective 06/01 nv, extremely agitated, not allowing labs draws, no night sweats, cbc ordered 06/02 confused, restraints, on abx and plaquenil, hgb 7.9, nrb 15 L 06/03 is with nonrebreather, but not compliant, remains confused 06/05 no bleeding, labs noted, no major bleeding, otherwise comfortable 06/06 labs reviewed, no bleeding, meds noted, no night sweats, on levo and nonrebreather 06/07 labs noted, no bleeding, meds reviewed, no bleeding, wbc higher 06/08 to get 2 units prbc, no night sweats, meds reviewed 06/09 is on cefepime and vanc, labs noted, ernesto Rn, no bleeding 06/10 no major changes, labs reviewed, wbc 28k, on abx, cefepime 06/12 remains in icu, labs noted, no night sweats or bleeding 06/13 sluggish pupils, remains agitated, per psych, no bleding, on vent, wbc sitll high 06/14 still confused, remains on vent, with ng, running nepro, on pressors 06/15 icu, febrile, non verbal, hgb 7.1, blood pending, completed plaq 06/16 remains in the icu, nonverbal, plan for hd tomorrow, ernesto rn 06/17 in icu, on pressor, nonverbal, on abx, no bleeding 06/19 no bleeding, nonverbal in icu, hgb is 7.7 06/20 on zosyn, tube feeds, vent, labs noted, in icu, nv 06/21 gettng hd as per renal, in icu, nv, no bleeding, tfs 06/22 icu, cxr with slight improvement, cooling blanket, weaning today 06/23 wewaning, in icu, on vent, abx, and pressors as needed, labs noted 06/24 failed weaning, off abx, completed plaquenil, hgb 8.1 06/26 icu, weaning for this am, afebrile, hgb 8 06/27 in icu, remains comotose, weaning started on peep, no night sweats 06/28 weaning today, off abx, restraints, no distress, h/h stable 06/29 covid 19+, failed weaning, no blood transfusion needed Objective Objective Current Medications Medications (Trade) Dose Ordered Sig/Anthony Route PRN Reason Start Time Stop Time Status Last Admin Dose Admin Acetaminophen (Tylenol) 650 mg Q4H PRN NG Temp >100.5 06/13/19 11:00 07/13/19 10:59 06/27/19 04:21 Albuterol Sulfate (Proventil MDI) 2 puff Q4HRT INH 06/06/19 23:00 08/30/19 18:59 06/30/19 07:42 Chlorhexidine Gluconate (Michelle-Hex 2%) 1 applic DAILY@2000 TOPIC 06/07/19 20:00 09/05/19 19:59 06/29/19 20:10 Dextrose (Dextrose 50%) 25 ml Q30M PRN IV Hypoglycemia 06/20/19 19:30 09/18/19 19:29 Dextrose (Dextrose 50%) 50 ml Q30M PRN IV Hypoglycemia 06/20/19 19:30 09/18/19 19:29 Docusate Sodium (Colace) 100 mg THREE TIMES A DAY NG 06/07/19 13:00 07/07/19 12:59 06/29/19 17:28 Dopamine HCl/ Dextrose 250 ml @ 0 mls/hr Q24H PRN IV For hypotension 06/13/19 08:15 09/11/19 08:14 Enoxaparin Sodium (Lovenox) 30 mg DAILY SUBQ 06/07/19 09:00 08/27/19 08:59 06/29/19 08:44 Epoetin Aftab (Epoetin Aftab(ESRD on dialysis)) 10,000 unit FRI-FRI-FRI SUBQ 06/07/19 21:00 08/31/19 20:59 06/28/19 20:34 Fentanyl Citrate 250 ml @ 0 mls/hr Q24H IV 06/24/19 06:00 09/22/19 05:59 06/29/19 23:01 Hydralazine HCl (Apresoline) 10 mg Q4H PRN IV Blood pressure over 160 systol 06/07/19 10:15 09/05/19 10:14 Insulin Aspart (NovoLOG) EVERY 6 HOURS SUBQ 06/21/19 00:00 09/19/19 00:00 06/29/19 23:02 Metoclopramide HCl (Reglan) 5 mg Q8H PRN IVP Nausea & Vomiting 06/18/19 12:00 07/18/19 11:59 06/19/19 00:50 Midodrine (Pro-Amatine) 10 mg THREE TIMES A DAY NG 06/09/19 13:00 09/07/19 12:59 06/29/19 17:28 Norepinephrine Bitartrate 8 mg/ Dextrose 283 ml @ 0 mls/hr Q24H IV 06/23/19 23:00 07/23/19 22:59 06/25/19 14:38 Pantoprazole (Protonix) 40 mg DAILY IVP 06/19/19 09:00 07/19/19 08:59 06/29/19 08:43 Sevelamer Carbonate (Renvela) 1,600 mg Q8HR NG 06/25/19 22:00 09/05/19 12:59 06/30/19 05:05 Last 24 Hour Vital Signs Date Time Temp Pulse Resp B/P (MAP) Pulse Ox O2 Delivery O2 Flow Rate FiO2 06/30/19 08:18 30 06/30/19 08:14 104 34 30 06/30/19 07:48 30 06/30/19 07:48 91 34 30 30 06/30/19 07:20 81 26 99 Mechanical Ventilator 30 82 26 30 06/30/19 07:00 87 26 133/82 (99) 98 06/30/19 06:30 82 26 120/69 (86) 99 06/30/19 06:30 93 17 06/30/19 06:00 93 17 144/73 (96) 99 06/30/19 05:30 90 24 141/74 (96) 99 06/30/19 05:00 81 22 149/72 (97) 99 06/30/19 04:30 87 25 125/54 (77) 99 06/30/19 04:00 30 06/30/19 04:00 83 06/30/19 04:00 Mechanical Ventilator 06/30/19 04:00 25 136/79 Mechanical Ventilator 30 06/30/19 04:00 99.9 81 25 136/79 (98) 99 06/30/19 03:30 90 23 132/66 (88) 99 06/30/19 03:00 93 34 149/73 (98) 97 06/30/19 03:00 34 149/73 Mechanical Ventilator 30 06/30/19 02:37 81 26 100 Mechanical Ventilator 30 83 26 30 06/30/19 02:30 70 26 131/57 (81) 100 06/30/19 02:00 26 118/59 Mechanical Ventilator 30 06/30/19 02:00 69 26 118/59 (78) 100 5/20/20 01:30 69 26 124/63 (83) 100 06/30/19 01:00 16 134/63 Mechanical Ventilator 30 06/30/19 01:00 75 16 134/63 (86) 100 06/30/19 00:30 82 26 132/66 (88) 100 06/30/19 00:00 Mechanical Ventilator 06/30/19 00:00 26 128/62 Mechanical Ventilator 30 06/30/19 00:00 30 06/30/19 00:00 75 06/30/19 00:00 99.4 73 26 128/62 (84) 100 06/29/19 23:30 74 26 113/60 (77) 100 06/29/19 23:01 25 168/80 Mechanical Ventilator 30 06/29/19 23:00 80 16 132/59 (83) 100 06/29/19 23:00 16 132/59 Mechanical Ventilator 30 06/29/19 23:00 168/80 06/29/19 22:44 84 26 100 Mechanical Ventilator 30 83 26 30 06/29/19 22:30 75 25 122/57 (78) 100 06/29/19 22:00 74 25 120/61 (80) 100 06/29/19 22:00 25 120/61 Mechanical Ventilator 30 06/29/19 21:30 76 25 137/60 (85) 100 06/29/19 21:00 25 133/56 Mechanical Ventilator 30 06/29/19 21:00 87 25 133/56 (81) 100 06/29/19 20:30 78 26 116/57 (76) 99 06/29/19 20:00 87 06/29/19 20:00 Mechanical Ventilator 06/29/19 20:00 30 06/29/19 20:00 24 125/55 Mechanical Ventilator 30 06/29/19 20:00 99.5 88 24 125/55 (78) 99 06/29/19 19:34 74 26 99 Mechanical Ventilator 30 84 26 30 06/29/19 19:30 88 24 137/65 (89) 100 06/29/19 19:00 26 93/51 Mechanical Ventilator 30 06/29/19 19:00 75 26 93/51 (65) 98 1920 18:15 88 24 107/52 (70) 97 06/29/19 18:00 85 26 101/52 (68) 97 20 18:00 26 101/52 Mechanical Ventilator 30 06/29/19 17:30 89 26 108/51 (70) 97 06/29/19 17:00 26 156/79 Mechanical Ventilator 30 06/29/19 17:00 107 23 156/79 (104) 97 06/29/19 16:30 91 0 107/54 (71) 95 06/29/19 16:00 99.7 95 0 109/55 (73) 94 06/29/19 16:00 26 109/55 Mechanical Ventilator 30 06/29/19 16:00 Mechanical Ventilator 06/29/19 16:00 30 06/29/19 16:00 98 06/29/19 15:30 97 26 104/55 (71) 92 06/29/19 15:09 90 26 30 06/29/19 15:00 26 112/61 Mechanical Ventilator 30 06/29/19 15:00 100 26 112/61 (78) 90 06/29/19 14:30 102 26 104/61 (75) 86 06/29/19 14:00 26 118/67 Mechanical Ventilator 30 06/29/19 14:00 111 26 118/67 (84) 87 06/29/19 13:00 30 176/94 Mechanical Ventilator 30 06/29/19 13:00 123 51 176/94 (121) 94 06/29/19 12:45 122 35 118/70 (86) 94 06/29/19 12:30 123 34 114/58 (76) 96 06/29/19 12:15 123 40 124/68 (86) 97 06/29/19 12:00 100.0 119 53 134/80 (98) 95 06/29/19 12:00 50 134/80 Mechanical Ventilator 30 06/29/19 12:00 Mechanical Ventilator 06/29/19 12:00 115 06/29/19 12:00 30 06/29/19 11:45 116 45 144/75 (98) 92 06/29/19 11:30 117 50 158/84 (108) 91 06/29/19 11:14 121 30 30 06/29/19 11:00 26 136/73 Mechanical Ventilator 30 06/29/19 11:00 119 35 136/73 (94) 90 06/29/19 10:45 108 21 115/61 (79) 94 06/29/19 10:30 101 18 117/75 (89) 95 06/29/19 10:23 103 17 147/75 (99) 97 06/29/19 10:00 107 19 154/76 (102) 97 06/29/19 10:00 26 154/76 Mechanical Ventilator 30 06/29/19 09:00 30 06/29/19 09:00 40 165/85 Mechanical Ventilator 30 06/29/19 09:00 96 40 165/85 (111) 100 06/29/19 08:47 105 37 30 06/29/19 08:33 100 06/29/19 08:33 91 34 30 30 06/29/19 08:30 30 06/29/19 08:00 Mechanical Ventilator 06/29/19 08:00 30 148/82 Mechanical Ventilator 30 06/29/19 08:00 99.4 91 26 148/82 (104) 99 06/29/19 08:00 94 06/29/19 07:04 91 29 100 30 87 28 30 06/29/19 07:00 89 26 149/69 (95) 100 06/29/19 07:00 26 149/69 Mechanical Ventilator 30 06/29/19 06:30 83 265 06/29/19 06:00 79 26 142/72 (95) 99 06/29/19 06:00 26 142/72 Mechanical Ventilator 30 06/29/19 06:00 26 122/74 Mechanical Ventilator 30 06/29/19 05:00 26 122/74 Mechanical Ventilator 30 06/29/19 05:00 84 26 122/74 (90) 99 06/29/19 04:00 Mechanical Ventilator 06/29/19 04:00 98.8 82 26 130/71 (90) 99 06/29/19 04:00 26 130/71 Mechanical Ventilator 30 06/29/19 04:00 89 06/29/19 04:00 30 06/29/19 03:32 73 26 100 30 75 26 30 06/29/19 03:00 81 28 130/73 (92) 100 06/29/19 03:00 28 130/73 Mechanical Ventilator 30 06/29/19 02:00 73 26 126/61 (82) 100 06/29/19 02:00 26 126/61 Mechanical Ventilator 30 06/29/19 01:00 26 125/57 Mechanical Ventilator 30 06/29/19 01:00 71 26 125/57 (79) 99 06/29/19 00:00 94 5/19/20 00:00 26 133/73 Mechanical Ventilator 30 06/29/19 00:00 30 06/29/19 00:00 Mechanical Ventilator 06/29/19 00:00 99.1 77 26 133/73 (93) 100 06/28/19 23:30 85 26 100 30 85 26 30 06/28/19 23:00 90 23 147/74 (98) 99 06/28/19 23:00 23 147/74 Mechanical Ventilator 30 06/28/19 23:00 147/74 06/28/19 22:30 76 22 124/62 (82) 100 06/28/19 22:00 79 24 120/64 (82) 100 06/28/19 22:00 24 120/64 Mechanical Ventilator 30 06/28/19 21:30 90 26 140/63 (88) 99 20 21:00 77 26 122/59 (80) 99 20 21:00 26 122/59 Mechanical Ventilator 30 06/28/19 20:30 83 22 137/67 (90) 99 06/28/19 20:00 99.4 79 26 123/61 (81) 99 20 20:00 Mechanical Ventilator 06/28/19 20:00 26 123/61 Non-Rebreather 30 06/28/19 20:00 30 06/28/19 20:00 80 20 19:30 85 16 126/60 (82) 99 20 19:00 86 26 100 30 86 26 30 20 19:00 26 137/63 Mechanical Ventilator 30 06/28/19 19:00 85 22 137/63 (87) 100 20 18:30 86 26 140/62 (88) 99 20 18:00 83 26 136/63 (87) 100 1820 18:00 26 136/63 Mechanical Ventilator 30 20 17:30 80 26 128/54 (78) 100 1820 17:00 89 26 149/66 (93) 99 1820 17:00 26 149/66 Mechanical Ventilator 30 20 16:30 79 25 149/77 (101) 99 1820 16:00 30 20 16:00 26 127/61 Mechanical Ventilator 30 06/28/19 16:00 74 06/28/19 16:00 Mechanical Ventilator 06/28/19 16:00 99.2 73 26 127/61 (83) 99 06/28/19 15:30 73 26 119/66 (83) 99 06/28/19 15:08 70 26 30 06/28/19 15:00 83 25 147/69 (95) 99 06/28/19 15:00 26 147/69 Mechanical Ventilator 30 06/28/19 14:30 83 26 148/68 (94) 100 06/28/19 14:00 77 26 142/70 (94) 100 06/28/19 14:00 26 142/70 Mechanical Ventilator 30 06/28/19 13:30 88 26 139/64 (89) 100 06/28/19 13:00 26 130/61 Mechanical Ventilator 30 06/28/19 13:00 76 26 130/61 (84) 100 06/28/19 12:30 76 26 128/58 (81) 100 06/28/19 12:00 99.4 77 26 125/58 (80) 99 06/28/19 12:00 26 125/58 Mechanical Ventilator 30 06/28/19 12:00 Mechanical Ventilator 06/28/19 12:00 74 06/28/19 11:49 87 26 100 Mechanical Ventilator 30 90 26 30 06/28/19 11:00 85 26 127/62 (83) 99 06/28/19 11:00 26 127/62 Mechanical Ventilator 30 06/28/19 10:30 92 26 118/63 (81) 99 06/28/19 10:00 26 124/72 Mechanical Ventilator 30 06/28/19 10:00 99 26 124/72 (89) 99 06/28/19 09:30 106 29 125/71 (89) 98 06/28/19 09:18 32 172/80 Mechanical Ventilator 30 06/28/19 09:15 30 06/28/19 09:13 106 33 30 Intake and Output 06/29/19 06/30/19 19:00 07:00 Intake Total 545 ml 569 ml Output Total 2055 ml 20 ml Balance -1510 ml 549 ml Free Water 200 ml IV Total 95 ml 89 ml Tube Feeding 350 ml 280 ml Other 100 ml Output Urine Total 55 ml 20 ml Hemodialysis UF 2000 ml # Bowel Movements 2 1 Labs Test 06/27/19 11:20 5/18/20 04:10 06/29/19 04:00 06/30/19 04:00 Arterial Blood pH 7.413 (7.350-7.450) Arterial Blood Partial Pressure CO2 41.7 mmHg (35.0-45.0) Arterial Blood Partial Pressure O2 104.3 mmHg (75.0-100.0) Arterial Blood HCO3 26.0 mmol/L (22.0-26.0) Arterial Blood Oxygen Saturation 97.9 % (95-100) Arterial Blood Base Excess 1.3 (-2-2) Kosta Test Positive White Blood Count 13.0 K/UL (4.8-10.8) 12.5 K/UL (4.8-10.8) 12.8 K/UL (4.8-10.8) Red Blood Count 2.67 M/UL (4.70-6.10) 2.63 M/UL (4.70-6.10) 2.77 M/UL (4.70-6.10) Hemoglobin 7.9 G/DL (14.2-18.0) 7.7 G/DL (14.2-18.0) 8.2 G/DL (14.2-18.0) Hematocrit 25.2 % (42.0-52.0) 24.6 % (42.0-52.0) 25.9 % (42.0-52.0) Mean Corpuscular Volume 94 FL (80-99) 94 FL (80-99) 94 FL (80-99) Mean Corpuscular Hemoglobin 29.6 PG (27.0-31.0) 29.4 PG (27.0-31.0) 29.5 PG (27.0-31.0) Mean Corpuscular Hemoglobin Concent 31.3 G/DL (32.0-36.0) 31.3 G/DL (32.0-36.0) 31.5 G/DL (32.0-36.0) Red Cell Distribution Width 19.0 % (11.6-14.8) 18.5 % (11.6-14.8) 18.1 % (11.6-14.8) Platelet Count 365 K/UL (150-450) 402 K/UL (150-450) 389 K/UL (150-450) Mean Platelet Volume 6.6 FL (6.5-10.1) 6.3 FL (6.5-10.1) 6.6 FL (6.5-10.1) Neutrophils (%) (Auto) % (45.0-75.0) % (45.0-75.0) 82.8 % (45.0-75.0) Lymphocytes (%) (Auto) % (20.0-45.0) % (20.0-45.0) 11.1 % (20.0-45.0) Monocytes (%) (Auto) % (1.0-10.0) % (1.0-10.0) 4.4 % (1.0-10.0) Eosinophils (%) (Auto) % (0.0-3.0) % (0.0-3.0) 1.0 % (0.0-3.0) Basophils (%) (Auto) % (0.0-2.0) % (0.0-2.0) 0.7 % (0.0-2.0) Differential Total Cells Counted 100 Neutrophils % (Manual) 84 % (45-75) Lymphocytes % (Manual) 10 % (20-45) Monocytes % (Manual) 5 % (1-10) Eosinophils % (Manual) 1 % (0-3) Basophils % (Manual) 0 % (0-2) Band Neutrophils 0 % (0-8) Platelet Estimate Adequate Platelet Morphology Normal Polychromasia 1+ Hypochromasia 1+ Anisocytosis 1+ Sodium Level 138 MMOL/L (136-145) 139 MMOL/L (136-145) 140 MMOL/L (136-145) Potassium Level 3.4 MMOL/L (3.5-5.1) 3.5 MMOL/L (3.5-5.1) 4.1 MMOL/L (3.5-5.1) Chloride Level 97 MMOL/L (98-107) 99 MMOL/L (98-107) 98 MMOL/L (98-107) Carbon Dioxide Level 26 MMOL/L (21-32) 27 MMOL/L (21-32) 30 MMOL/L (21-32) Anion Gap 15 mmol/L (5-15) 13 mmol/L (5-15) 12 mmol/L (5-15) Blood Urea Nitrogen 61 mg/dL (7-18) 74 mg/dL (7-18) 56 mg/dL (7-18) Creatinine 7.1 MG/DL (0.55-1.30) 8.3 MG/DL (0.55-1.30) 6.8 MG/DL (0.55-1.30) Estimat Glomerular Filtration Rate 7.8 mL/min (>60) 6.5 mL/min (>60) 8.2 mL/min (>60) Glucose Level 140 MG/DL (74-106) 187 MG/DL (74-106) 139 MG/DL (74-106) Calcium Level 9.2 MG/DL (8.5-10.1) 8.7 MG/DL (8.5-10.1) 9.2 MG/DL (8.5-10.1) Phosphorus Level 4.2 MG/DL (2.5-4.9) 4.1 MG/DL (2.5-4.9) Magnesium Level 2.6 MG/DL (1.8-2.4) 2.5 MG/DL (1.8-2.4) Total Bilirubin 0.3 MG/DL (0.2-1.0) 0.3 MG/DL (0.2-1.0) Aspartate Amino Transf (AST/SGOT) 22 U/L (15-37) 29 U/L (15-37) Alanine Aminotransferase (ALT/SGPT) 7 U/L (12-78) 11 U/L (12-78) Alkaline Phosphatase 88 U/L (46-116) 95 U/L (46-116) C-Reactive Protein, Quantitative 16.9 mg/dL (0.00-0.90) 17.3 mg/dL (0.00-0.90) Pro-B-Type Natriuretic Peptide > 74925 pg/mL (0-125) > 06060 pg/mL (0-125) Total Protein 7.6 G/DL (6.4-8.2) 8.4 G/DL (6.4-8.2) Albumin 1.8 G/DL (3.4-5.0) 2.2 G/DL (3.4-5.0) Globulin 5.8 g/dL 6.2 g/dL Albumin/Globulin Ratio 0.3 (1.0-2.7) 0.4 (1.0-2.7) Height (Feet): 6 Height (Inches): 1.00 Weight (Pounds): 239 Objective Sp02 EP Interpretation: reviewed General: nv, confused, sedated Heent: bilateral eye normal inspection, bilateral eye PERRL ++Ng Respiratory: normal breath sounds, no respiratory distress, intubated+++ Cardiovascular: regular rate, rhythm, no edema Gastrointestinal: normal inspection, soft, non-distended Rectal: deferred Musculoskeletal: normal range of motion, non-tender Neurologic: alert, motor strength/tone normal, sensory intact, responsive, speech normal Skin: Decubitus/Ulcer - See RN skin exam. : jamaal+ Greg Cabral MD June 30, 2019 09:16
--- NOTE | 2019-06-30 09:23 | Diagnostic Imaging Report ---
Procedure: XRAY Chest 1v Reason for study: Shortness of breath Comparison films: 06/23/2019. FINDINGS: Endotracheal tube, NG tube and central line remain in place. There is improved aeration with slight decrease in alveolar infiltrates. No new consolidation. Cardiac and mediastinal silhouette are within normal limits. CP angles are sharp. The bony thorax appear unremarkable. IMPRESSION: Improved aeration with slight decrease in bilateral infiltrates.
[2019-06-30] MEDS: Pantoprazole Inj IVP SCH (09:46)
[2019-06-30] MEDS: Docusate 100mg/10ml Liq NG SCH ×3 (09:46→17:26)
[2019-06-30] MEDS: Midodrine 10mg tab NG SCH ×3 (09:46→17:26)
[2019-06-30] MEDS: Enoxaparin 30mg Inj SUBQ SCH (09:47)
--- NOTE | 2019-06-30 10:11 | Cardiac Electrophysiology PN ---
Assessment/Plan Assessment/Plan 1. Elevated troponin. Troponin on May 27 and May 30 were negative, on June 01, it was elevated at 0.074. Repeat 0.05. Due to renal failure. On Aspirin. EF 60%. 2. S/P Septic shock. Off Levo 3. ESRD, on hemodialysis per Dr. Cole. 4. COVID-19 positive pneumonia. On the Vent with 30% Fio2. Fu by Dr. Mckeon. Failed weaning May need tracheostomy 5. MRSA carrier. 6. COPD. 7. Anemia. 8. Depression. DW RN Subjective Subjective Is Covid positive x 3 in isolation in ICU, intubated on 30% Fio2, PEEP 5. Failed weaning. Off pressors.Had HD yesterday Objective Last 24 Hour Vital Signs Date Time Temp Pulse Resp B/P (MAP) Pulse Ox O2 Delivery O2 Flow Rate FiO2 06/30/19 09:30 93 24 136/72 (93) 99 06/30/19 09:00 89 26 138/66 (90) 99 06/30/19 08:30 90 26 115/65 (82) 99 06/30/19 08:18 30 06/30/19 08:14 104 34 30 06/30/19 08:00 Mechanical Ventilator 06/30/19 08:00 100.0 101 35 159/77 (104) 99 06/30/19 07:48 30 06/30/19 07:48 91 34 30 30 06/30/19 07:30 90 22 156/73 (100) 99 06/30/19 07:20 81 26 99 Mechanical Ventilator 30 82 26 30 06/30/19 07:00 87 26 133/82 (99) 98 06/30/19 06:30 82 26 120/69 (86) 99 06/30/19 06:30 93 17 06/30/19 06:00 93 17 144/73 (96) 99 06/30/19 05:30 90 24 141/74 (96) 99 06/30/19 05:00 81 22 149/72 (97) 99 06/30/19 04:30 87 25 125/54 (77) 99 06/30/19 04:00 30 06/30/19 04:00 83 06/30/19 04:00 Mechanical Ventilator 06/30/19 04:00 25 136/79 Mechanical Ventilator 30 06/30/19 04:00 99.9 81 25 136/79 (98) 99 06/30/19 03:30 90 23 132/66 (88) 99 06/30/19 03:00 93 34 149/73 (98) 97 06/30/19 03:00 34 149/73 Mechanical Ventilator 30 06/30/19 02:37 81 26 100 Mechanical Ventilator 30 83 26 30 06/30/19 02:30 70 26 131/57 (81) 100 06/30/19 02:00 26 118/59 Mechanical Ventilator 30 06/30/19 02:00 69 26 118/59 (78) 100 06/30/19 01:30 69 26 124/63 (83) 100 06/30/19 01:00 16 134/63 Mechanical Ventilator 30 06/30/19 01:00 75 16 134/63 (86) 100 06/30/19 00:30 82 26 132/66 (88) 100 06/30/19 00:00 Mechanical Ventilator 06/30/19 00:00 26 128/62 Mechanical Ventilator 30 06/30/19 00:00 30 06/30/19 00:00 75 06/30/19 00:00 99.4 73 26 128/62 (84) 100 06/29/19 23:30 74 26 113/60 (77) 100 06/29/19 23:01 25 168/80 Mechanical Ventilator 30 06/29/19 23:00 80 16 132/59 (83) 100 06/29/19 23:00 16 132/59 Mechanical Ventilator 30 06/29/19 23:00 168/80 06/29/19 22:44 84 26 100 Mechanical Ventilator 30 83 26 30 06/29/19 22:30 75 25 122/57 (78) 100 06/29/19 22:00 74 25 120/61 (80) 100 06/29/19 22:00 25 120/61 Mechanical Ventilator 30 06/29/19 21:30 76 25 137/60 (85) 100 06/29/19 21:00 25 133/56 Mechanical Ventilator 30 06/29/19 21:00 87 25 133/56 (81) 100 06/29/19 20:30 78 26 116/57 (76) 99 06/29/19 20:00 87 06/29/19 20:00 Mechanical Ventilator 06/29/19 20:00 30 5/19/20 20:00 24 125/55 Mechanical Ventilator 30 06/29/19 20:00 99.5 88 24 125/55 (78) 99 06/29/19 19:34 74 26 99 Mechanical Ventilator 30 84 26 30 06/29/19 19:30 88 24 137/65 (89) 100 06/29/19 19:00 26 93/51 Mechanical Ventilator 30 06/29/19 19:00 75 26 93/51 (65) 98 06/29/19 18:15 88 24 107/52 (70) 97 06/29/19 18:00 85 26 101/52 (68) 97 06/29/19 18:00 26 101/52 Mechanical Ventilator 30 06/29/19 17:30 89 26 108/51 (70) 97 06/29/19 17:00 26 156/79 Mechanical Ventilator 30 06/29/19 17:00 107 23 156/79 (104) 97 06/29/19 16:30 91 0 107/54 (71) 95 06/29/19 16:00 99.7 95 0 109/55 (73) 94 06/29/19 16:00 26 109/55 Mechanical Ventilator 30 06/29/19 16:00 Mechanical Ventilator 06/29/19 16:00 30 06/29/19 16:00 98 06/29/19 15:30 97 26 104/55 (71) 92 06/29/19 15:09 90 26 30 06/29/19 15:00 26 112/61 Mechanical Ventilator 30 06/29/19 15:00 100 26 112/61 (78) 90 06/29/19 14:30 102 26 104/61 (75) 86 06/29/19 14:00 26 118/67 Mechanical Ventilator 30 06/29/19 14:00 111 26 118/67 (84) 87 06/29/19 13:00 30 176/94 Mechanical Ventilator 30 06/29/19 13:00 123 51 176/94 (121) 94 06/29/19 12:45 122 35 118/70 (86) 94 06/29/19 12:30 123 34 114/58 (76) 96 06/29/19 12:15 123 40 124/68 (86) 97 06/29/19 12:00 100.0 119 53 134/80 (98) 95 06/29/19 12:00 50 134/80 Mechanical Ventilator 30 06/29/19 12:00 Mechanical Ventilator 06/29/19 12:00 115 06/29/19 12:00 30 06/29/19 11:45 116 45 144/75 (98) 92 06/29/19 11:30 117 50 158/84 (108) 91 06/29/19 11:14 121 30 30 06/29/19 11:00 26 136/73 Mechanical Ventilator 30 06/29/19 11:00 119 35 136/73 (94) 90 06/29/19 10:45 108 21 115/61 (79) 94 06/29/19 10:30 101 18 117/75 (89) 95 06/29/19 10:23 103 17 147/75 (99) 97 Intake and Output 06/29/19 06/30/19 19:00 07:00 Intake Total 545 ml 569 ml Output Total 2055 ml 20 ml Balance -1510 ml 549 ml Free Water 200 ml IV Total 95 ml 89 ml Tube Feeding 350 ml 280 ml Other 100 ml Output Urine Total 55 ml 20 ml Hemodialysis UF 2000 ml # Bowel Movements 2 1 Laboratory Tests Test 06/30/19 04:00 White Blood Count 12.8 K/UL (4.8-10.8) H Red Blood Count 2.77 M/UL (4.70-6.10) L Hemoglobin 8.2 G/DL (14.2-18.0) L Hematocrit 25.9 % (42.0-52.0) L Mean Corpuscular Volume 94 FL (80-99) Mean Corpuscular Hemoglobin 29.5 PG (27.0-31.0) Mean Corpuscular Hemoglobin Concent 31.5 G/DL (32.0-36.0) L Red Cell Distribution Width 18.1 % (11.6-14.8) H Platelet Count 389 K/UL (150-450) Mean Platelet Volume 6.6 FL (6.5-10.1) Neutrophils (%) (Auto) 82.8 % (45.0-75.0) H Lymphocytes (%) (Auto) 11.1 % (20.0-45.0) L Monocytes (%) (Auto) 4.4 % (1.0-10.0) Eosinophils (%) (Auto) 1.0 % (0.0-3.0) Basophils (%) (Auto) 0.7 % (0.0-2.0) Sodium Level 140 MMOL/L (136-145) Potassium Level 4.1 MMOL/L (3.5-5.1) Chloride Level 98 MMOL/L (98-107) Carbon Dioxide Level 30 MMOL/L (21-32) Anion Gap 12 mmol/L (5-15) Blood Urea Nitrogen 56 mg/dL (7-18) H Creatinine 6.8 MG/DL (0.55-1.30) H Estimat Glomerular Filtration Rate 8.2 mL/min (>60) Glucose Level 139 MG/DL (74-106) H Calcium Level 9.2 MG/DL (8.5-10.1) Phosphorus Level 4.1 MG/DL (2.5-4.9) Magnesium Level 2.5 MG/DL (1.8-2.4) H Total Bilirubin 0.3 MG/DL (0.2-1.0) Aspartate Amino Transf (AST/SGOT) 29 U/L (15-37) Alanine Aminotransferase (ALT/SGPT) 11 U/L (12-78) L Alkaline Phosphatase 95 U/L (46-116) C-Reactive Protein, Quantitative 17.3 mg/dL (0.00-0.90) H Pro-B-Type Natriuretic Peptide > 67951 pg/mL (0-125) H Total Protein 8.4 G/DL (6.4-8.2) H Albumin 2.2 G/DL (3.4-5.0) L Globulin 6.2 g/dL Albumin/Globulin Ratio 0.4 (1.0-2.7) L Microbiology Date/Time Source Procedure Growth Status 06/28/19 16:50 Nasopharynx Coronavirus COVID-19 PCR ([facility]) - Final Complete Objective HEAD AND NECK: No JVD. Orally intubated LUNGS: Decreased breath sounds. CARDIOVASCULAR: Regular S1 and S2. Tachycardic. ABDOMEN: Soft. EXTREMITIES: No pitting edema. New Left [facility] Gio Engle MD June 30, 2019 10:11
--- NOTE | 2019-06-30 10:37 | Infectious Diseases Prog Note ---
Assessment/Plan Assessment/Plan IMPRESSION: 1. COVID19 pneumonia Positive: 05/27, 05/31 , 06/05, 06/09 ,06/17, 06/19, 06/23, 06/27 2. MRSA carrier. 3. Chronic kidney disease , end-stage renal disease. 4. COPD. 5. Hypertension. 6. Anemia. 7. Hypothyroidism. 8. Hyperlipidemia. 9. Major depression. 10. Leukocytosis 11. Hypotension 12. Hepatitis C 13. Hyperuricemia 14. Diarrhea 15. septic shock 16. Leukocytosis improving RECOMMENDATIONS: Observe off of antibiotic CXR: slight improvement Finished hydroxychloroquine. Will f/u COVID19 test Case was D/W RN Subjective ROS Limited/Unobtainable: Yes Constitutional: Reports: fever, other - low grade, T=100 Respiratory: Reports: other - failed weaning so far Allergies: Coded Allergies: No Known Allergies (Unverified , 05/28/19) Objective Vital Signs Last 24 Hour Vital Signs Date Time Temp Pulse Resp B/P (MAP) Pulse Ox O2 Delivery O2 Flow Rate FiO2 06/30/19 10:15 92 26 155/74 (101) 100 06/30/19 10:11 92 26 30 06/30/19 10:10 99 06/30/19 10:00 26 141/70 Mechanical Ventilator 30 06/30/19 10:00 91 26 141/70 (93) 99 06/30/19 09:30 93 24 136/72 (93) 99 06/30/19 09:00 89 26 138/66 (90) 99 06/30/19 08:30 90 26 115/65 (82) 99 06/30/19 08:18 30 06/30/19 08:14 104 34 30 06/30/19 08:00 Mechanical Ventilator 06/30/19 08:00 100.0 101 35 159/77 (104) 99 06/30/19 07:48 30 06/30/19 07:48 91 34 30 30 06/30/19 07:30 90 22 156/73 (100) 99 06/30/19 07:20 81 26 99 Mechanical Ventilator 30 82 26 30 06/30/19 07:00 87 26 133/82 (99) 98 06/30/19 06:30 82 26 120/69 (86) 99 06/30/19 06:30 93 17 06/30/19 06:00 93 17 144/73 (96) 99 06/30/19 05:30 90 24 141/74 (96) 99 06/30/19 05:00 81 22 149/72 (97) 99 06/30/19 04:30 87 25 125/54 (77) 99 06/30/19 04:00 30 06/30/19 04:00 83 06/30/19 04:00 Mechanical Ventilator 06/30/19 04:00 25 136/79 Mechanical Ventilator 30 06/30/19 04:00 99.9 81 25 136/79 (98) 99 06/30/19 03:30 90 23 132/66 (88) 99 06/30/19 03:00 93 34 149/73 (98) 97 06/30/19 03:00 34 149/73 Mechanical Ventilator 30 06/30/19 02:37 81 26 100 Mechanical Ventilator 30 83 26 30 06/30/19 02:30 70 26 131/57 (81) 100 06/30/19 02:00 26 118/59 Mechanical Ventilator 30 06/30/19 02:00 69 26 118/59 (78) 100 06/30/19 01:30 69 26 124/63 (83) 100 06/30/19 01:00 16 134/63 Mechanical Ventilator 30 06/30/19 01:00 75 16 134/63 (86) 100 06/30/19 00:30 82 26 132/66 (88) 100 06/30/19 00:00 Mechanical Ventilator 06/30/19 00:00 26 128/62 Mechanical Ventilator 30 06/30/19 00:00 30 06/30/19 00:00 75 06/30/19 00:00 99.4 73 26 128/62 (84) 100 06/29/19 23:30 74 26 113/60 (77) 100 06/29/19 23:01 25 168/80 Mechanical Ventilator 30 06/29/19 23:00 80 16 132/59 (83) 100 06/29/19 23:00 16 132/59 Mechanical Ventilator 30 06/29/19 23:00 168/80 06/29/19 22:44 84 26 100 Mechanical Ventilator 30 83 26 30 06/29/19 22:30 75 25 122/57 (78) 100 06/29/19 22:00 74 25 120/61 (80) 100 5/19/20 22:00 25 120/61 Mechanical Ventilator 30 06/29/19 21:30 76 25 137/60 (85) 100 20 21:00 25 133/56 Mechanical Ventilator 30 06/29/19 21:00 87 25 133/56 (81) 100 06/28/20 20:30 78 26 116/57 (76) 99 19/20 20:00 87 1920 20:00 Mechanical Ventilator 06/29/19 20:00 30 06/29/19 20:00 24 125/55 Mechanical Ventilator 30 06/29/19 20:00 99.5 88 24 125/55 (78) 99 06/29/19 19:34 74 26 99 Mechanical Ventilator 30 84 26 30 06/29/19 19:30 88 24 137/65 (89) 100 06/29/19 19:00 26 93/51 Mechanical Ventilator 30 06/29/19 19:00 75 26 93/51 (65) 98 06/28/ 18:15 88 24 107/52 (70) 97 06/29/19 18:00 85 26 101/52 (68) 97 06/28/20 18:00 26 101/52 Mechanical Ventilator 30 06/29/19 17:30 89 26 108/51 (70) 97 20 17:00 26 156/79 Mechanical Ventilator 30 06/29/19 17:00 107 23 156/79 (104) 97 06/28/20 16:30 91 0 107/54 (71) 95 20 16:00 99.7 95 0 109/55 (73) 94 06/29/19 16:00 26 109/55 Mechanical Ventilator 30 06/29/19 16:00 Mechanical Ventilator 06/29/19 16:00 30 20 16:00 98 06/29/19 15:30 97 26 104/55 (71) 92 06/29/19 15:09 90 26 30 20 15:00 26 112/61 Mechanical Ventilator 30 06/29/19 15:00 100 26 112/61 (78) 90 20 14:30 102 26 104/61 (75) 86 19/20 14:00 26 118/67 Mechanical Ventilator 30 06/29/19 14:00 111 26 118/67 (84) 87 20 13:00 30 176/94 Mechanical Ventilator 30 06/29/19 13:00 123 51 176/94 (121) 94 06/29/19 12:45 122 35 118/70 (86) 94 06/29/19 12:30 123 34 114/58 (76) 96 06/29/19 12:15 123 40 124/68 (86) 97 06/29/19 12:00 100.0 119 53 134/80 (98) 95 06/29/19 12:00 50 134/80 Mechanical Ventilator 30 06/29/19 12:00 Mechanical Ventilator 06/29/19 12:00 115 06/29/19 12:00 30 06/29/19 11:45 116 45 144/75 (98) 92 06/29/19 11:30 117 50 158/84 (108) 91 06/29/19 11:14 121 30 30 06/29/19 11:00 26 136/73 Mechanical Ventilator 30 06/29/19 11:00 119 35 136/73 (94) 90 06/29/19 10:45 108 21 115/61 (79) 94 Height (Feet): 6 Height (Inches): 1.00 Weight (Pounds): 239 HEENT: other - orally intubated Cardiovascular: normal rate, other - Subclavian central line, Femoral HD line Extremities: no edema Neurologic/Psychiatric: unresponsiveness Microbiology Date/Time Source Procedure Growth Status 06/28/19 16:50 Nasopharynx Coronavirus COVID-19 PCR ([facility]) - Final Complete Laboratory Tests Test 06/30/19 04:00 White Blood Count 12.8 K/UL (4.8-10.8) H Red Blood Count 2.77 M/UL (4.70-6.10) L Hemoglobin 8.2 G/DL (14.2-18.0) L Hematocrit 25.9 % (42.0-52.0) L Mean Corpuscular Volume 94 FL (80-99) Mean Corpuscular Hemoglobin 29.5 PG (27.0-31.0) Mean Corpuscular Hemoglobin Concent 31.5 G/DL (32.0-36.0) L Red Cell Distribution Width 18.1 % (11.6-14.8) H Platelet Count 389 K/UL (150-450) Mean Platelet Volume 6.6 FL (6.5-10.1) Neutrophils (%) (Auto) 82.8 % (45.0-75.0) H Lymphocytes (%) (Auto) 11.1 % (20.0-45.0) L Monocytes (%) (Auto) 4.4 % (1.0-10.0) Eosinophils (%) (Auto) 1.0 % (0.0-3.0) Basophils (%) (Auto) 0.7 % (0.0-2.0) Sodium Level 140 MMOL/L (136-145) Potassium Level 4.1 MMOL/L (3.5-5.1) Chloride Level 98 MMOL/L (98-107) Carbon Dioxide Level 30 MMOL/L (21-32) Anion Gap 12 mmol/L (5-15) Blood Urea Nitrogen 56 mg/dL (7-18) H Creatinine 6.8 MG/DL (0.55-1.30) H Estimat Glomerular Filtration Rate 8.2 mL/min (>60) Glucose Level 139 MG/DL (74-106) H Calcium Level 9.2 MG/DL (8.5-10.1) Phosphorus Level 4.1 MG/DL (2.5-4.9) Magnesium Level 2.5 MG/DL (1.8-2.4) H Total Bilirubin 0.3 MG/DL (0.2-1.0) Aspartate Amino Transf (AST/SGOT) 29 U/L (15-37) Alanine Aminotransferase (ALT/SGPT) 11 U/L (12-78) L Alkaline Phosphatase 95 U/L (46-116) C-Reactive Protein, Quantitative 17.3 mg/dL (0.00-0.90) H Pro-B-Type Natriuretic Peptide > 29260 pg/mL (0-125) H Total Protein 8.4 G/DL (6.4-8.2) H Albumin 2.2 G/DL (3.4-5.0) L Globulin 6.2 g/dL Albumin/Globulin Ratio 0.4 (1.0-2.7) L Current Medications Medications (Trade) Dose Ordered Sig/Anthony Route PRN Reason Start Time Stop Time Status Last Admin Dose Admin Acetaminophen (Tylenol) 650 mg Q4H PRN NG Temp >100.5 06/13/19 11:00 07/13/19 10:59 06/27/19 04:21 Albuterol Sulfate (Proventil MDI) 2 puff Q4HRT INH 06/06/19 23:00 08/30/19 18:59 06/30/19 07:42 Chlorhexidine Gluconate (Michelle-Hex 2%) 1 applic DAILY@2000 TOPIC 06/07/19 20:00 09/05/19 19:59 06/29/19 20:10 Dextrose (Dextrose 50%) 25 ml Q30M PRN IV Hypoglycemia 06/20/19 19:30 09/18/19 19:29 Dextrose (Dextrose 50%) 50 ml Q30M PRN IV Hypoglycemia 06/20/19 19:30 09/18/19 19:29 Docusate Sodium (Colace) 100 mg THREE TIMES A DAY NG 06/07/19 13:00 07/07/19 12:59 06/30/19 09:46 Dopamine HCl/ Dextrose 250 ml @ 0 mls/hr Q24H PRN IV For hypotension 06/13/19 08:15 09/11/19 08:14 Enoxaparin Sodium (Lovenox) 30 mg DAILY SUBQ 06/07/19 09:00 08/27/19 08:59 06/30/19 09:47 Epoetin Aftab (Epoetin Aftab(ESRD on dialysis)) 10,000 unit FRI- SUBQ 06/07/19 21:00 08/31/19 20:59 06/28/19 20:34 Fentanyl Citrate 250 ml @ 0 mls/hr Q24H IV 06/24/19 06:00 09/22/19 05:59 06/29/19 23:01 Hydralazine HCl (Apresoline) 10 mg Q4H PRN IV Blood pressure over 160 systol 06/07/19 10:15 09/05/19 10:14 Insulin Aspart (NovoLOG) EVERY 6 HOURS SUBQ 06/21/19 00:00 09/19/19 00:00 06/29/19 23:02 Metoclopramide HCl (Reglan) 5 mg Q8H PRN IVP Nausea & Vomiting 06/18/19 12:00 07/18/19 11:59 06/19/19 00:50 Midodrine (Pro-Amatine) 10 mg THREE TIMES A DAY NG 06/09/19 13:00 09/07/19 12:59 06/30/19 09:46 Norepinephrine Bitartrate 8 mg/ Dextrose 283 ml @ 0 mls/hr Q24H IV 06/23/19 23:00 07/23/19 22:59 06/25/19 14:38 Pantoprazole (Protonix) 40 mg DAILY IVP 06/19/19 09:00 07/19/19 08:59 06/30/19 09:46 Sevelamer Carbonate (Renvela) 1,600 mg Q8HR NG 06/25/19 22:00 09/05/19 12:59 06/30/19 05:05 Ted Leyva MD June 30, 2019 10:37
--- NOTE | 2019-06-30 11:32 | Nephrology Progress Note ---
Assessment/Plan Problem List: (1) CASSANDRA (acute kidney injury) (2) Anemia in chronic kidney disease (CKD) (3) HTN (hypertension) (4) COVID-19 Assessment Acute renal failure most likely superimposed on chronic kidney disease Suspected COVID-19 virus infection Possible Pneumonia, lymphopenia, elevated AST Cardiomegaly, possible CHF COPD Hypertension Anemia, most likely related to chronic kidney disease Plan June 29: Dialyzed yesterday Due for dialysis tomorrow Stable from renal standpoint to view Keeps failing weaning process June 28: Patient due for dialysis today Stable from renal standpoint to view Continue per consultants June 27: Labs reviewed Due due for dialysis June 28 Discussed with SHANIQUE Dick Continue per consultants Remains intubated on ventilator June 26 Labs reviewed Dialyzed yesterday Started on weaning today Continue to monitor renal parameters June 25: On dialysis now Potassium supplement implemented Continue per consultants Next dialysis June 27June 15: Status unchanged Dialyzed yesterday will dialyze again tomorrow Potassium supplements given Discussed with RN June 14: Due dialysis today Status: Remains intubated on ventilator June 13: Status unchanged Dialyzed yesterday and duefordialysistomorrow Serum sodium stable today June 21 Remains intubated on ventilator Due dialysis today Emphasized high sodium bath for dialysis June 11: Remains intubated on ventilator Dialyzed June 19 next dialysis June 21 Serum sodium 128, will give 250 cc 3% saline Remains full code Discussed with RN Iron panel ordered June 19: Discussed with RN. Patient due for dialysis today. Continue pulmonary support. Remains full code. June 18: Patient dialyzed yesterday June 17 Serum sodium improved but still low Arrange for dialysis tomorrow June 19 Continue per consultants June 8: Due for dialysis today Today's lab reviewed, low serum sodium noted, Emphasized on high sodium bath to dialysis nurse Discussed with SHANIQUE Yuen June 7: Dialyzed yesterday Remains intubated Labs reviewed, serum sodium 131 Plan to dialyze tomorrow June 17 with high sodium bath Discussed with SHANIQUE Yuen June 6: Due for dialysis today Labs reviewed Discussed with RN Transfuse 1 unit of packed RBCs today for low hemoglobin of 7.1 June 5: Blood pressure well maintained Receive dialysis June 13 next hemodialysis June 15June 4: Discussed with RN in ICU Patient did not receive proper dialysis yesterday due to dialysis catheter malfunction Catheter to be adjusted today and dialyzed to be resumed today Continue per consultants Positive for COVID 19 June 2: Patient now intubated on mechanical ventilation Discussed with SHANIQUE Yuen, today June 12 Patient received dialysis yesterday June 10 next hemodialysis June 12 Blood pressure better maintained Today's labs reviewed Continue per consultants Previously patient received dialysis last evening June 05, next dialysis June 07 which was incomplete due to patient's hypotension Will start on midodrine for blood pressure support. Meanwhile continue other pressors as needed Previously Patient is doing poorly, septic, white blood cells are rising, Hypotension somewhat improved We will keep n.p.o. , NG tube for medications, and change medication to IV as needed Patient remains full code Monitor vancomycin level Previously: Patient pulled out his femoral catheter yesterday June 03 which was reinserted by Dr. Mast Patient scheduled for dialysis again June 04, which again was not done due to dialysis nurse citing catheter malfunction Meanwhile continue management per ID, pulmonary , and psych. Meanwhile white blood cell count is rising. Patient blood pressure borderline low. Will check ABG Previously May 31 : I believe patient need dialysis treatment He however needs to competency assessment if can make decisions or not I will communicate with Dr. Mulligan Previously: Per pulmonary and ID advice Adjust blood pressure medication Renal diet Anemia work-up 2D echocardiogram refused Kidney ultrasound refused Jules catheter Urine studies Per orders Subjective ROS Limited/Unobtainable: Yes Objective Objective Last 24 Hour Vital Signs Date Time Temp Pulse Resp B/P (MAP) Pulse Ox O2 Delivery O2 Flow Rate FiO2 06/30/19 10:15 92 26 155/74 (101) 100 06/30/19 10:11 92 26 30 06/30/19 10:10 99 06/30/19 10:00 26 141/70 Mechanical Ventilator 30 06/30/19 10:00 91 26 141/70 (93) 99 06/30/19 09:30 93 24 136/72 (93) 99 06/30/19 09:00 89 26 138/66 (90) 99 06/30/19 08:30 90 26 115/65 (82) 99 06/30/19 08:18 30 06/30/19 08:14 104 34 30 06/30/19 08:00 Mechanical Ventilator 06/30/19 08:00 100.0 101 35 159/77 (104) 99 06/30/19 07:48 30 06/30/19 07:48 91 34 30 30 06/30/19 07:30 90 22 156/73 (100) 99 06/30/19 07:20 81 26 99 Mechanical Ventilator 30 82 26 30 06/30/19 07:00 87 26 133/82 (99) 98 06/30/19 06:30 82 26 120/69 (86) 99 06/30/19 06:30 93 17 06/30/19 06:00 93 17 144/73 (96) 99 06/30/19 05:30 90 24 141/74 (96) 99 06/30/19 05:00 81 22 149/72 (97) 99 06/30/19 04:30 87 25 125/54 (77) 99 06/30/19 04:00 30 06/30/19 04:00 83 06/30/19 04:00 Mechanical Ventilator 06/30/19 04:00 25 136/79 Mechanical Ventilator 30 06/30/19 04:00 99.9 81 25 136/79 (98) 99 06/30/19 03:30 90 23 132/66 (88) 99 06/30/19 03:00 93 34 149/73 (98) 97 06/30/19 03:00 34 149/73 Mechanical Ventilator 30 06/30/19 02:37 81 26 100 Mechanical Ventilator 30 83 26 30 06/30/19 02:30 70 26 131/57 (81) 100 06/30/19 02:00 26 118/59 Mechanical Ventilator 30 06/30/19 02:00 69 26 118/59 (78) 100 06/30/19 01:30 69 26 124/63 (83) 100 06/30/19 01:00 16 134/63 Mechanical Ventilator 30 06/30/19 01:00 75 16 134/63 (86) 100 06/30/19 00:30 82 26 132/66 (88) 100 06/30/19 00:00 Mechanical Ventilator 06/30/19 00:00 26 128/62 Mechanical Ventilator 30 06/30/19 00:00 30 06/30/19 00:00 75 06/30/19 00:00 99.4 73 26 128/62 (84) 100 06/29/19 23:30 74 26 113/60 (77) 100 06/29/19 23:01 25 168/80 Mechanical Ventilator 30 06/29/19 23:00 80 16 132/59 (83) 100 06/29/19 23:00 16 132/59 Mechanical Ventilator 30 06/29/19 23:00 168/80 06/29/19 22:44 84 26 100 Mechanical Ventilator 30 83 26 30 06/29/19 22:30 75 25 122/57 (78) 100 20 22:00 74 25 120/61 (80) 100 20 22:00 25 120/61 Mechanical Ventilator 30 06/29/19 21:30 76 25 137/60 (85) 100 20 21:00 25 133/56 Mechanical Ventilator 30 06/29/19 21:00 87 25 133/56 (81) 100 06/29/19 20:30 78 26 116/57 (76) 99 06/29/19 20:00 87 06/29/19 20:00 Mechanical Ventilator 06/29/19 20:00 30 06/29/19 20:00 24 125/55 Mechanical Ventilator 30 06/29/19 20:00 99.5 88 24 125/55 (78) 99 06/29/19 19:34 74 26 99 Mechanical Ventilator 30 84 26 30 06/29/19 19:30 88 24 137/65 (89) 100 06/29/19 19:00 26 93/51 Mechanical Ventilator 30 06/29/19 19:00 75 26 93/51 (65) 98 06/29/19 18:15 88 24 107/52 (70) 97 20 18:00 85 26 101/52 (68) 97 20 18:00 26 101/52 Mechanical Ventilator 30 06/29/19 17:30 89 26 108/51 (70) 97 20 17:00 26 156/79 Mechanical Ventilator 30 06/29/19 17:00 107 23 156/79 (104) 97 06/29/19 16:30 91 0 107/54 (71) 95 06/28/20 16:00 99.7 95 0 109/55 (73) 94 06/29/19 16:00 26 109/55 Mechanical Ventilator 30 06/29/19 16:00 Mechanical Ventilator 20 16:00 30 06/29/19 16:00 98 20 15:30 97 26 104/55 (71) 92 06/29/19 15:09 90 26 30 06/29/19 15:00 26 112/61 Mechanical Ventilator 30 06/29/19 15:00 100 26 112/61 (78) 90 06/29/19 14:30 102 26 104/61 (75) 86 06/29/19 14:00 26 118/67 Mechanical Ventilator 30 06/29/19 14:00 111 26 118/67 (84) 87 06/29/19 13:00 30 176/94 Mechanical Ventilator 30 06/29/19 13:00 123 51 176/94 (121) 94 06/29/19 12:45 122 35 118/70 (86) 94 06/29/19 12:30 123 34 114/58 (76) 96 06/29/19 12:15 123 40 124/68 (86) 97 06/29/19 12:00 100.0 119 53 134/80 (98) 95 06/29/19 12:00 50 134/80 Mechanical Ventilator 30 06/29/19 12:00 Mechanical Ventilator 06/29/19 12:00 115 06/29/19 12:00 30 06/29/19 11:45 116 45 144/75 (98) 92 Intake and Output 06/29/19 06/30/19 19:00 07:00 Intake Total 545 ml 569 ml Output Total 2055 ml 20 ml Balance -1510 ml 549 ml Free Water 200 ml IV Total 95 ml 89 ml Tube Feeding 350 ml 280 ml Other 100 ml Output Urine Total 55 ml 20 ml Hemodialysis UF 2000 ml # Bowel Movements 2 1 Laboratory Tests 06/30/19 04:00: White Blood Count 12.8H, Red Blood Count 2.77L, Hemoglobin 8.2L, Hematocrit 25.9L, Mean Corpuscular Volume 94, Mean Corpuscular Hemoglobin 29.5, Mean Corpuscular Hemoglobin Concent 31.5L, Red Cell Distribution Width 18.1H, Platelet Count 389, Mean Platelet Volume 6.6, Neutrophils (%) (Auto) 82.8H, Lymphocytes (%) (Auto) 11.1L, Monocytes (%) (Auto) 4.4, Eosinophils (%) (Auto) 1.0, Basophils (%) (Auto) 0.7, Sodium Level 140, Potassium Level 4.1, Chloride Level 98, Carbon Dioxide Level 30, Anion Gap 12, Blood Urea Nitrogen 56H, Creatinine 6.8H, Estimat Glomerular Filtration Rate 8.2, Glucose Level 139H, Calcium Level 9.2, Phosphorus Level 4.1, Magnesium Level 2.5H, Total Bilirubin 0.3, Aspartate Amino Transf (AST/SGOT) 29, Alanine Aminotransferase (ALT/SGPT) 11L, Alkaline Phosphatase 95, C-Reactive Protein, Quantitative 17.3H, Pro-B- Type Natriuretic Peptide > 51283U, Total Protein 8.4H, Albumin 2.2L, Globulin 6.2, Albumin/Globulin Ratio 0.4L Height (Feet): 6 Height (Inches): 1.00 Weight (Pounds): 239 General Appearance: no apparent distress EENT: other - Remains intubated on ventilator Cardiovascular: tachycardia Respiratory/Chest: decreased breath sounds Abdomen: distended Objective No change Mic Cole MD June 30, 2019 11:32
--- NOTE | 2019-06-30 11:47 | General Progress Note ---
Assessment/Plan Status: unchanged Assessment/Plan: 1. Diabetes. 2. Hypertension. 3. Coronary artery disease. 4. COPD. 5. Psychiatric disorder with schizophrenia. 6. History of hepatitis C. 7. HLP. 8. Chronic kidney disease, now with acute renal failure. 9. Anemia. 10. Hypothyroidism. 11. Spinal stenosis. 12. Constipation. 13. GERD. 14. COVID positive HD per nephrology extubated pending swallow eval recent labs and notes reviewed stable H&H will fu Subjective ROS Limited/Unobtainable: No Allergies: Coded Allergies: No Known Allergies (Unverified , 05/28/19) Objective Last 24 Hour Vital Signs Date Time Temp Pulse Resp B/P (MAP) Pulse Ox O2 Delivery O2 Flow Rate FiO2 06/30/19 11:41 80 26 100 Mechanical Ventilator 30 81 26 30 06/30/19 10:15 92 26 155/74 (101) 100 06/30/19 10:11 92 26 30 06/30/19 10:10 99 06/30/19 10:00 26 141/70 Mechanical Ventilator 30 06/30/19 10:00 91 26 141/70 (93) 99 06/30/19 09:30 93 24 136/72 (93) 99 06/30/19 09:00 89 26 138/66 (90) 99 06/30/19 08:30 90 26 115/65 (82) 99 06/30/19 08:18 30 06/30/19 08:14 104 34 30 06/30/19 08:00 Mechanical Ventilator 06/30/19 08:00 100.0 101 35 159/77 (104) 99 06/30/19 07:48 30 06/30/19 07:48 91 34 30 30 06/30/19 07:30 90 22 156/73 (100) 99 06/30/19 07:20 81 26 99 Mechanical Ventilator 30 82 26 30 06/30/19 07:00 87 26 133/82 (99) 98 06/30/19 06:30 82 26 120/69 (86) 99 06/30/19 06:30 93 17 06/30/19 06:00 93 17 144/73 (96) 99 06/30/19 05:30 90 24 141/74 (96) 99 06/30/19 05:00 81 22 149/72 (97) 99 06/30/19 04:30 87 25 125/54 (77) 99 06/30/19 04:00 30 06/30/19 04:00 83 06/30/19 04:00 Mechanical Ventilator 06/30/19 04:00 25 136/79 Mechanical Ventilator 30 06/30/19 04:00 99.9 81 25 136/79 (98) 99 06/30/19 03:30 90 23 132/66 (88) 99 06/30/19 03:00 93 34 149/73 (98) 97 06/30/19 03:00 34 149/73 Mechanical Ventilator 30 06/30/19 02:37 81 26 100 Mechanical Ventilator 30 83 26 30 06/30/19 02:30 70 26 131/57 (81) 100 06/30/19 02:00 26 118/59 Mechanical Ventilator 30 06/30/19 02:00 69 26 118/59 (78) 100 06/30/19 01:30 69 26 124/63 (83) 100 06/30/19 01:00 16 134/63 Mechanical Ventilator 30 06/30/19 01:00 75 16 134/63 (86) 100 06/30/19 00:30 82 26 132/66 (88) 100 06/30/19 00:00 Mechanical Ventilator 06/30/19 00:00 26 128/62 Mechanical Ventilator 30 06/30/19 00:00 30 06/30/19 00:00 75 06/30/19 00:00 99.4 73 26 128/62 (84) 100 06/29/19 23:30 74 26 113/60 (77) 100 06/29/19 23:01 25 168/80 Mechanical Ventilator 30 06/29/19 23:00 80 16 132/59 (83) 100 06/29/19 23:00 16 132/59 Mechanical Ventilator 30 06/29/19 23:00 168/80 06/29/19 22:44 84 26 100 Mechanical Ventilator 30 83 26 30 06/29/19 22:30 75 25 122/57 (78) 100 06/29/19 22:00 74 25 120/61 (80) 100 06/29/19 22:00 25 120/61 Mechanical Ventilator 30 06/29/19 21:30 76 25 137/60 (85) 100 06/29/19 21:00 25 133/56 Mechanical Ventilator 30 5/19/20 21:00 87 25 133/56 (81) 100 06/29/19 20:30 78 26 116/57 (76) 99 06/29/19 20:00 87 06/29/19 20:00 Mechanical Ventilator 06/29/19 20:00 30 20 20:00 24 125/55 Mechanical Ventilator 30 06/29/19 20:00 99.5 88 24 125/55 (78) 99 06/29/19 19:34 74 26 99 Mechanical Ventilator 30 84 26 30 06/29/19 19:30 88 24 137/65 (89) 100 20 19:00 26 93/51 Mechanical Ventilator 30 06/29/19 19:00 75 26 93/51 (65) 98 06/29/19 18:15 88 24 107/52 (70) 97 06/29/19 18:00 85 26 101/52 (68) 97 06/29/19 18:00 26 101/52 Mechanical Ventilator 30 06/29/19 17:30 89 26 108/51 (70) 97 06/29/19 17:00 26 156/79 Mechanical Ventilator 30 06/29/19 17:00 107 23 156/79 (104) 97 06/29/19 16:30 91 0 107/54 (71) 95 06/29/19 16:00 99.7 95 0 109/55 (73) 94 06/29/19 16:00 26 109/55 Mechanical Ventilator 30 06/29/19 16:00 Mechanical Ventilator 06/29/19 16:00 30 06/29/19 16:00 98 06/29/19 15:30 97 26 104/55 (71) 92 06/29/19 15:09 90 26 30 06/29/19 15:00 26 112/61 Mechanical Ventilator 30 06/29/19 15:00 100 26 112/61 (78) 90 20 14:30 102 26 104/61 (75) 86 20 14:00 26 118/67 Mechanical Ventilator 30 06/29/19 14:00 111 26 118/67 (84) 87 20 13:00 30 176/94 Mechanical Ventilator 30 06/29/19 13:00 123 51 176/94 (121) 94 06/29/19 12:45 122 35 118/70 (86) 94 06/29/19 12:30 123 34 114/58 (76) 96 06/29/19 12:15 123 40 124/68 (86) 97 06/29/19 12:00 100.0 119 53 134/80 (98) 95 06/29/19 12:00 50 134/80 Mechanical Ventilator 30 06/29/19 12:00 Mechanical Ventilator 06/29/19 12:00 115 06/29/19 12:00 30 Intake and Output 06/29/19 06/30/19 19:00 07:00 Intake Total 545 ml 569 ml Output Total 2055 ml 20 ml Balance -1510 ml 549 ml Free Water 200 ml IV Total 95 ml 89 ml Tube Feeding 350 ml 280 ml Other 100 ml Output Urine Total 55 ml 20 ml Hemodialysis UF 2000 ml # Bowel Movements 2 1 Laboratory Tests 06/30/19 04:00: White Blood Count 12.8H, Red Blood Count 2.77L, Hemoglobin 8.2L, Hematocrit 25.9L, Mean Corpuscular Volume 94, Mean Corpuscular Hemoglobin 29.5, Mean Corpuscular Hemoglobin Concent 31.5L, Red Cell Distribution Width 18.1H, Platelet Count 389, Mean Platelet Volume 6.6, Neutrophils (%) (Auto) 82.8H, Lymphocytes (%) (Auto) 11.1L, Monocytes (%) (Auto) 4.4, Eosinophils (%) (Auto) 1.0, Basophils (%) (Auto) 0.7, Sodium Level 140, Potassium Level 4.1, Chloride Level 98, Carbon Dioxide Level 30, Anion Gap 12, Blood Urea Nitrogen 56H, Creatinine 6.8H, Estimat Glomerular Filtration Rate 8.2, Glucose Level 139H, Calcium Level 9.2, Phosphorus Level 4.1, Magnesium Level 2.5H, Total Bilirubin 0.3, Aspartate Amino Transf (AST/SGOT) 29, Alanine Aminotransferase (ALT/SGPT) 11L, Alkaline Phosphatase 95, C-Reactive Protein, Quantitative 17.3H, Pro-B- Type Natriuretic Peptide > [id number], Total Protein 8.4H, Albumin 2.2L, Globulin 6.2, Albumin/Globulin Ratio 0.4L Height (Feet): 6 Height (Inches): 1.00 Weight (Pounds): 239 General Appearance: no apparent distress EENT: PERRL/EOMI Neck: supple Cardiovascular: normal rate Respiratory/Chest: decreased breath sounds Abdomen: normal bowel sounds, non tender, soft Extremities: non-tender Marito Ramires MD June 30, 2019 11:47
[2019-06-30] MEDS: Acetaminophen 650mg/20.3ml NG PRN ×2 (12:12→21:41)
--- NOTE | 2019-06-30 14:28 | Surgery Progress Note ---
Surgery Progress Note Subjective Procedure Performed Right femoral temporary hemodialysis catheter insertion Additional Comments febrile leukocytosis ill appearing unable to wean vent ? trach Objective Last 24 Hour Vital Signs Date Time Temp Pulse Resp B/P (MAP) Pulse Ox O2 Delivery O2 Flow Rate FiO2 06/30/19 14:00 81 26 140/65 (90) 100 06/30/19 13:00 26 154/73 Mechanical Ventilator 30 06/30/19 13:00 87 26 154/73 (100) 100 06/30/19 12:42 100.9 06/30/19 12:00 Mechanical Ventilator 06/30/19 12:00 83 06/30/19 12:00 101.0 89 26 135/67 (89) 100 06/30/19 12:00 90 26 135/67 (89) 99 06/30/19 12:00 26 135/67 Mechanical Ventilator 30 06/30/19 11:41 80 26 100 Mechanical Ventilator 30 81 26 30 06/30/19 11:30 93 26 149/76 (100) 99 06/30/19 11:00 83 26 125/64 (84) 100 06/30/19 11:00 26 125/64 Mechanical Ventilator 30 06/30/19 10:45 84 26 142/68 (92) 100 06/30/19 10:30 84 18 118/67 (84) 100 06/30/19 10:15 92 26 155/74 (101) 100 06/30/19 10:11 92 26 30 06/30/19 10:10 99 06/30/19 10:00 26 141/70 Mechanical Ventilator 30 06/30/19 10:00 91 26 141/70 (93) 99 06/30/19 09:30 93 24 136/72 (93) 99 06/30/19 09:00 89 26 138/66 (90) 99 06/30/19 08:30 90 26 115/65 (82) 99 06/30/19 08:18 30 06/30/19 08:14 104 34 30 06/30/19 08:00 Mechanical Ventilator 06/30/19 08:00 84 06/30/19 08:00 100.0 101 35 159/77 (104) 99 06/30/19 07:48 30 06/30/19 07:48 91 34 30 30 06/30/19 07:30 90 22 156/73 (100) 99 06/30/19 07:20 81 26 99 Mechanical Ventilator 30 82 26 30 06/30/19 07:00 87 26 133/82 (99) 98 06/30/19 06:30 82 26 120/69 (86) 99 06/30/19 06:30 93 17 06/30/19 06:00 93 17 144/73 (96) 99 06/30/19 05:30 90 24 141/74 (96) 99 06/30/19 05:00 81 22 149/72 (97) 99 06/30/19 04:30 87 25 125/54 (77) 99 06/30/19 04:00 30 06/30/19 04:00 83 06/30/19 04:00 Mechanical Ventilator 06/30/19 04:00 25 136/79 Mechanical Ventilator 30 06/30/19 04:00 99.9 81 25 136/79 (98) 99 06/30/19 03:30 90 23 132/66 (88) 99 06/30/19 03:00 93 34 149/73 (98) 97 06/30/19 03:00 34 149/73 Mechanical Ventilator 30 06/30/19 02:37 81 26 100 Mechanical Ventilator 30 83 26 30 06/30/19 02:30 70 26 131/57 (81) 100 06/30/19 02:00 26 118/59 Mechanical Ventilator 30 06/30/19 02:00 69 26 118/59 (78) 100 06/30/19 01:30 69 26 124/63 (83) 100 06/30/19 01:00 16 134/63 Mechanical Ventilator 30 06/30/19 01:00 75 16 134/63 (86) 100 06/30/19 00:30 82 26 132/66 (88) 100 06/30/19 00:00 Mechanical Ventilator 06/30/19 00:00 26 128/62 Mechanical Ventilator 30 06/30/19 00:00 30 06/30/19 00:00 75 06/30/19 00:00 99.4 73 26 128/62 (84) 100 06/29/19 23:30 74 26 113/60 (77) 100 06/29/19 23:01 25 168/80 Mechanical Ventilator 30 06/29/19 23:00 80 16 132/59 (83) 100 06/29/19 23:00 16 132/59 Mechanical Ventilator 30 06/29/19 23:00 168/80 06/29/19 22:44 84 26 100 Mechanical Ventilator 30 83 26 30 06/29/19 22:30 75 25 122/57 (78) 100 20 22:00 74 25 120/61 (80) 100 19/20 22:00 25 120/61 Mechanical Ventilator 30 06/29/19 21:30 76 25 137/60 (85) 100 06/29/19 21:00 25 133/56 Mechanical Ventilator 30 06/29/19 21:00 87 25 133/56 (81) 100 20 20:30 78 26 116/57 (76) 99 20 20:00 87 06/29/19 20:00 Mechanical Ventilator 06/29/19 20:00 30 06/29/19 20:00 24 125/55 Mechanical Ventilator 30 06/29/19 20:00 99.5 88 24 125/55 (78) 99 06/29/19 19:34 74 26 99 Mechanical Ventilator 30 84 26 30 06/29/19 19:30 88 24 137/65 (89) 100 06/29/19 19:00 26 93/51 Mechanical Ventilator 30 06/29/19 19:00 75 26 93/51 (65) 98 06/28/ 18:15 88 24 107/52 (70) 97 06/29/19 18:00 85 26 101/52 (68) 97 06/28/20 18:00 26 101/52 Mechanical Ventilator 30 06/29/19 17:30 89 26 108/51 (70) 97 06/29/19 17:00 26 156/79 Mechanical Ventilator 30 06/29/19 17:00 107 23 156/79 (104) 97 20 16:30 91 0 107/54 (71) 95 20 16:00 99.7 95 0 109/55 (73) 94 06/29/19 16:00 26 109/55 Mechanical Ventilator 30 06/29/19 16:00 Mechanical Ventilator 06/29/19 16:00 30 20 16:00 98 06/29/19 15:30 97 26 104/55 (71) 92 19/20 15:09 90 26 30 06/29/19 15:00 26 112/61 Mechanical Ventilator 30 06/29/19 15:00 100 26 112/61 (78) 90 5/19/20 14:30 102 26 104/61 (75) 86 I&O Intake and Output 06/29/19 06/30/19 19:00 07:00 Intake Total 545 ml 569 ml Output Total 2055 ml 20 ml Balance -1510 ml 549 ml Free Water 200 ml IV Total 95 ml 89 ml Tube Feeding 350 ml 280 ml Other 100 ml Output Urine Total 55 ml 20 ml Hemodialysis UF 2000 ml # Bowel Movements 2 1 Dressing: other Wound: other Drains: other Cardiovascular: RSR Respiratory: decreased breath sounds Abdomen: soft, non-tender, present bowel sounds Extremities: no cyanosis Laboratory Tests Test 06/30/19 04:00 White Blood Count 12.8 K/UL (4.8-10.8) H Red Blood Count 2.77 M/UL (4.70-6.10) L Hemoglobin 8.2 G/DL (14.2-18.0) L Hematocrit 25.9 % (42.0-52.0) L Mean Corpuscular Volume 94 FL (80-99) Mean Corpuscular Hemoglobin 29.5 PG (27.0-31.0) Mean Corpuscular Hemoglobin Concent 31.5 G/DL (32.0-36.0) L Red Cell Distribution Width 18.1 % (11.6-14.8) H Platelet Count 389 K/UL (150-450) Mean Platelet Volume 6.6 FL (6.5-10.1) Neutrophils (%) (Auto) 82.8 % (45.0-75.0) H Lymphocytes (%) (Auto) 11.1 % (20.0-45.0) L Monocytes (%) (Auto) 4.4 % (1.0-10.0) Eosinophils (%) (Auto) 1.0 % (0.0-3.0) Basophils (%) (Auto) 0.7 % (0.0-2.0) Sodium Level 140 MMOL/L (136-145) Potassium Level 4.1 MMOL/L (3.5-5.1) Chloride Level 98 MMOL/L (98-107) Carbon Dioxide Level 30 MMOL/L (21-32) Anion Gap 12 mmol/L (5-15) Blood Urea Nitrogen 56 mg/dL (7-18) H Creatinine 6.8 MG/DL (0.55-1.30) H Estimat Glomerular Filtration Rate 8.2 mL/min (>60) Glucose Level 139 MG/DL (74-106) H Calcium Level 9.2 MG/DL (8.5-10.1) Phosphorus Level 4.1 MG/DL (2.5-4.9) Magnesium Level 2.5 MG/DL (1.8-2.4) H Total Bilirubin 0.3 MG/DL (0.2-1.0) Aspartate Amino Transf (AST/SGOT) 29 U/L (15-37) Alanine Aminotransferase (ALT/SGPT) 11 U/L (12-78) L Alkaline Phosphatase 95 U/L (46-116) C-Reactive Protein, Quantitative 17.3 mg/dL (0.00-0.90) H Pro-B-Type Natriuretic Peptide > 97318 pg/mL (0-125) H Total Protein 8.4 G/DL (6.4-8.2) H Albumin 2.2 G/DL (3.4-5.0) L Globulin 6.2 g/dL Albumin/Globulin Ratio 0.4 (1.0-2.7) L Plan Problems: (1) Suspected COVID-19 virus infection (2) HTN (hypertension) (3) CASSANDRA (acute kidney injury) Assessment & Plan: Needs urgent HD needs access patient okay and consented see note will follow with recs new line placed discussed with team and nephrology HD line functional when checked has TPA now please use appropriately Cathflo used again this flow during dialysis on 430 was low. Will monitor may need line change 5/4 plan for HD as per renal may need to take fluid off with HD edema anasarca dressings saturated and changed will monitor (4) Anemia in chronic kidney disease (CKD) (5) Anemia (6) Renal failure (7) Suspected COVID-19 virus infection Assessment & Plan: Pt deconditioned and despite all skin preventions Pt noted to have developed several pressure injuries. . Stable dry eschar noted to clefts of R and L ears. No erythema noted . DTPI noted to L trochanter. Base of injury is maroon in colour with marginal erythema along borders. Partially opened DTPI Sacrum, R and L Buttocks. Base of wound is maroon with two small open wounds L sacrum and L buttocks. Pt has an APM/MOMO Mattress overlay and is being positioned with pillows as per tolerance and within protocols. Tx.Plan: Apply Cavilon Skin Barrier to both ears Daily and prn. Apply Moisture Barrier Paste to Sacrum,R and L Buttocks. Cover with Optifoam drsgs. Change every 3 days and PRN. Apply Cavilon Skin Barrier to R and L trochanter. Cover each site with Optifoam drsgs.Change every 7 days and PRN. Apply Cavilon Skin Barrier to both heels. Cover each heel with Optifoam drsg. Change every 7 days and prn. Off-load heels with pillow. Reposition at least every 2hours or as tolerated. APM/MOMO Mattress overlay. (8) COVID-19 Assessment & Plan: COVID + c diff negative febrile leukocytosis renal insufficiency see above cont resp care Rx as per ID worsening on vent support now cxr noted on pressors prognosis guarded repeat covid ++ weaning vent and pressors off slowly showing improvement Yaniv Mast June 30, 2019 14:28
[2019-06-30] MEDS: Dyna-Hex 2% Top Sol 2oz TOPIC SCH (20:38)
[2019-06-30] MEDS: Epoetin Alfa-EPBX(ESRD on dialysis)10,000 unit/ml vial SUBQ SCH (21:24)
--- NOTE | 2019-06-30 21:26 | General Progress Note ---
Assessment/Plan Problem List: (1) Anemia ICD Codes: D64.9 - Anemia, unspecified SNOMED: 053629050 (2) Renal failure ICD Codes: N19 - Unspecified kidney failure SNOMED: 44187553 (3) Suspected COVID-19 virus infection ICD Codes: R68.89 - Other general symptoms and signs SNOMED: 108818747 (4) HTN (hypertension) ICD Codes: I10 - Essential (primary) hypertension SNOMED: 77690445 (5) CASSANDRA (acute kidney injury) ICD Codes: N17.9 - Acute kidney failure, unspecified SNOMED: 6621060, 55602417 (6) Anemia in chronic kidney disease (CKD) ICD Codes: N18.9 - Chronic kidney disease, unspecified; D63.1 - Anemia in chronic kidney disease SNOMED: 514327419 (7) Suspected COVID-19 virus infection ICD Codes: R68.89 - Other general symptoms and signs SNOMED: 553390811 Status: unchanged Assessment/Plan: anemia leukocytosis pna covid resp failure not much changed intermittent fever diaylsis per renal dr Subjective ROS Limited/Unobtainable: Yes Allergies: Coded Allergies: No Known Allergies (Unverified , 05/28/19) Objective Last 24 Hour Vital Signs Date Time Temp Pulse Resp B/P (MAP) Pulse Ox O2 Delivery O2 Flow Rate FiO2 06/30/19 19:08 96 31 100 Mechanical Ventilator 30 86 26 30 06/30/19 19:00 26 142/90 Mechanical Ventilator 30 06/30/19 19:00 102 37 142/90 (107) 98 06/30/19 18:30 97 29 151/74 (99) 99 06/30/19 18:00 26 137/66 Mechanical Ventilator 30 06/30/19 18:00 87 26 137/66 (89) 98 06/30/19 17:47 81 26 30 06/30/19 17:30 79 3 129/68 (88) 100 06/30/19 17:00 79 26 129/63 (85) 100 06/30/19 17:00 26 129/63 Mechanical Ventilator 30 06/30/19 16:30 76 22 129/53 (78) 100 06/30/19 16:00 Mechanical Ventilator 06/30/19 16:00 80 06/30/19 16:00 30 06/30/19 16:00 98.0 74 26 132/63 (86) 100 5/20/20 16:00 26 132/63 Mechanical Ventilator 30 520/20 15:10 101 27 100 Mechanical Ventilator 30 86 26 30 520/20 15:00 26 134/69 Mechanical Ventilator 30 520/20 15:00 85 29 134/69 (90) 97 5/20/20 14:00 81 26 140/65 (90) 100 520/20 14:00 26 140/65 Mechanical Ventilator 30 520 13:00 26 154/73 Mechanical Ventilator 30 520/20 13:00 87 26 154/73 (100) 100 520/20 12:42 100.9 5/20/20 12:00 Mechanical Ventilator 2020 12:00 83 52020 12:00 101.0 89 26 135/67 (89) 100 520/20 12:00 90 26 135/67 (89) 99 20/20 12:00 26 135/67 Mechanical Ventilator 30 20 11:41 80 26 100 Mechanical Ventilator 30 81 26 30 520 11:30 93 26 149/76 (100) 99 520/20 11:00 83 26 125/64 (84) 100 520/20 11:00 26 125/64 Mechanical Ventilator 30 20 10:45 84 26 142/68 (92) 100 5/20/20 10:30 84 18 118/67 (84) 100 5/20/20 10:15 92 26 155/74 (101) 100 520/20 10:11 92 26 30 5/20/20 10:10 99 520/20 10:00 26 141/70 Mechanical Ventilator 30 520/20 10:00 91 26 141/70 (93) 99 5/20/20 09:30 93 24 136/72 (93) 99 520/20 09:00 89 26 138/66 (90) 99 520/20 08:30 90 26 115/65 (82) 99 520/20 08:18 30 5/20/20 08:14 104 34 30 5/20/20 08:00 Mechanical Ventilator 520/20 08:00 84 520/20 08:00 100.0 101 35 159/77 (104) 99 520/20 07:48 30 06/30/19 07:48 91 34 30 30 06/30/19 07:30 90 22 156/73 (100) 99 06/30/19 07:20 81 26 99 Mechanical Ventilator 30 82 26 30 06/30/19 07:00 87 26 133/82 (99) 98 06/30/19 06:30 82 26 120/69 (86) 99 06/30/19 06:30 93 17 06/30/19 06:00 93 17 144/73 (96) 99 06/30/19 05:30 90 24 141/74 (96) 99 06/30/19 05:00 81 22 149/72 (97) 99 06/30/19 04:30 87 25 125/54 (77) 99 06/30/19 04:00 30 06/30/19 04:00 83 06/30/19 04:00 Mechanical Ventilator 06/30/19 04:00 25 136/79 Mechanical Ventilator 30 06/30/19 04:00 99.9 81 25 136/79 (98) 99 06/30/19 03:30 90 23 132/66 (88) 99 06/30/19 03:00 93 34 149/73 (98) 97 06/30/19 03:00 34 149/73 Mechanical Ventilator 30 06/30/19 02:37 81 26 100 Mechanical Ventilator 30 83 26 30 06/30/19 02:30 70 26 131/57 (81) 100 06/30/19 02:00 26 118/59 Mechanical Ventilator 30 06/30/19 02:00 69 26 118/59 (78) 100 06/30/19 01:30 69 26 124/63 (83) 100 06/30/19 01:00 16 134/63 Mechanical Ventilator 30 06/30/19 01:00 75 16 134/63 (86) 100 06/30/19 00:30 82 26 132/66 (88) 100 06/30/19 00:00 Mechanical Ventilator 06/30/19 00:00 26 128/62 Mechanical Ventilator 30 06/30/19 00:00 30 06/30/19 00:00 75 06/30/19 00:00 99.4 73 26 128/62 (84) 100 06/29/19 23:30 74 26 113/60 (77) 100 06/29/19 23:01 25 168/80 Mechanical Ventilator 30 5/19/20 23:00 80 16 132/59 (83) 100 06/29/19 23:00 16 132/59 Mechanical Ventilator 30 06/29/19 23:00 168/80 06/29/19 22:44 84 26 100 Mechanical Ventilator 30 83 26 30 06/29/19 22:30 75 25 122/57 (78) 100 06/29/19 22:00 74 25 120/61 (80) 100 06/29/19 22:00 25 120/61 Mechanical Ventilator 30 06/29/19 21:30 76 25 137/60 (85) 100 Intake and Output 06/29/19 06/30/19 19:00 07:00 Intake Total 545 ml 569 ml Output Total 2055 ml 20 ml Balance -1510 ml 549 ml Free Water 200 ml IV Total 95 ml 89 ml Tube Feeding 350 ml 280 ml Other 100 ml Output Urine Total 55 ml 20 ml Hemodialysis UF 2000 ml # Bowel Movements 2 1 Laboratory Tests 06/30/19 04:00: White Blood Count 12.8H, Red Blood Count 2.77L, Hemoglobin 8.2L, Hematocrit 25.9L, Mean Corpuscular Volume 94, Mean Corpuscular Hemoglobin 29.5, Mean Corpuscular Hemoglobin Concent 31.5L, Red Cell Distribution Width 18.1H, Platelet Count 389, Mean Platelet Volume 6.6, Neutrophils (%) (Auto) 82.8H, Lymphocytes (%) (Auto) 11.1L, Monocytes (%) (Auto) 4.4, Eosinophils (%) (Auto) 1.0, Basophils (%) (Auto) 0.7, Sodium Level 140, Potassium Level 4.1, Chloride Level 98, Carbon Dioxide Level 30, Anion Gap 12, Blood Urea Nitrogen 56H, Creatinine 6.8H, Estimat Glomerular Filtration Rate 8.2, Glucose Level 139H, Calcium Level 9.2, Phosphorus Level 4.1, Magnesium Level 2.5H, Total Bilirubin 0.3, Aspartate Amino Transf (AST/SGOT) 29, Alanine Aminotransferase (ALT/SGPT) 11L, Alkaline Phosphatase 95, C-Reactive Protein, Quantitative 17.3H, Pro-B- Type Natriuretic Peptide > 53004A, Total Protein 8.4H, Albumin 2.2L, Globulin 6.2, Albumin/Globulin Ratio 0.4L Height (Feet): 6 Height (Inches): 1.00 Weight (Pounds): 239 Karishma Mulligan MD June 30, 2019 21:26
[2019-06-30] MEDS: D5W IV SCH ×3 (23:00)
[2019-06-30] MEDS: NOREPINEPHRINE BITARTRATE IV SCH ×3 (23:00)
[2019-07-01] VITALS (37 sets, daily range): BP systolic 104–157; BP diastolic 57–117
--- NOTE | 2019-07-01 00:03 | Pulmonolgy Critical Care Note ---
Critical Care - Asmt/Plan Assessment/Plan: Pulmonary CCM Progress Note HPI: Patient is a 68 year old man, longterm resident, admitted c/o shortness of breath, cough, noted to have Covid 19 Pneumonia, Respiratory Failure S/p intubation, CXR improving infiltrates ETT adjusted Septic Shock, pressors off Preserved EF FIO2 40%-50%, P5, adequate O2 sats, remains on ACVC, did not tolerate weaning, less sedated, minimal secretions HD per Renal Hyponatremia stable Anemic ID following See earlier on 06/30/2019 Past Medical History: COPD, CKD, Hypertension, Anemia Hypotension requiring pressors, in ICU Persistently elevated WCC Allergies: No Known Allergies Improving Pulmonary Status on HD Physical Exam Vital Signs Noted Sedated on ventilator WDWN, no distress HEENT: NCAT,moist mm Chest: Occasional rhonchi Heart: HS1, HS2, RRR Abdomen: SNTND, no masses Extremities: Well perfused, no edema [employer]: No focal signs, no seizures, sedated Impression: COVID-19 virus infection Pneumonia Respiratory failure on ventilator Volume overload improving - on HD Hypotension on pressors Cardiomegaly Lymphopenia Elevated AST COPD Chronic Kidney Disease - HD H/o Hypertension Worsening anemia Plan: Antibiotics per ID HD Pressors PRN ACVC - wean as tolerated once pressors reduced/off 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 Monitor cultures/viral studies PPX Hemodialysis per Renal Psychiatry following [facility] - [facility] requested for when available, [facility] - not available as yet Laboratory Tests Noted: CXR: Hypoventilatory exam, interstitial changes, cardiomegaly, improving infiltrates Subjective ROS Limited/Unobtainable: No Constitutional: Denies: fever Respiratory: Reports: dry cough, shortness of breath Gastrointestinal/Abdominal: Reports: diarrhea, other - colace was stopped Psychiatric: Reports: other - refuses labs Allergies: Coded Allergies: No Known Allergies (Unverified , 05/28/19) All Systems: reviewed and negative except above Labs noted Critical Care - Objective Last 24 Hour Vital Signs Date Time Temp Pulse Resp B/P (MAP) Pulse Ox O2 Delivery O2 Flow Rate FiO2 06/30/19 23:54 99.4 06/30/19 23:00 152/72 06/30/19 23:00 78 27 114/64 (81) 99 06/30/19 22:49 82 25 100 Mechanical Ventilator 30 84 25 30 5/20/20 22:30 82 26 115/63 (80) 99 5/20/20 22:00 91 18 144/115 (125) 100 5/20/20 21:30 101.3 85 23 140/73 (95) 99 5/20/20 21:00 85 28 139/66 (90) 99 5/20/20 20:30 84 25 132/59 (83) 99 5/20/20 20:00 Mechanical Ventilator 520/20 20:00 83 5/20/20 20:00 30 5/20/20 20:00 83 26 133/58 (83) 99 5/20/20 19:08 96 31 100 Mechanical Ventilator 30 86 26 30 5/20/20 19:00 26 142/90 Mechanical Ventilator 30 520/20 19:00 102 37 142/90 (107) 98 5/20/20 18:30 97 29 151/74 (99) 99 5/20/20 18:00 26 137/66 Mechanical Ventilator 30 520/20 18:00 87 26 137/66 (89) 98 5/20/20 17:47 81 26 30 5/20/20 17:30 79 3 129/68 (88) 100 5/20/20 17:00 79 26 129/63 (85) 100 5/20/20 17:00 26 129/63 Mechanical Ventilator 30 2020 16:30 76 22 129/53 (78) 100 5/20/20 16:00 Mechanical Ventilator 520/20 16:00 80 520/20 16:00 30 5/20/20 16:00 98.0 74 26 132/63 (86) 100 520/20 16:00 26 132/63 Mechanical Ventilator 30 520/20 15:10 101 27 100 Mechanical Ventilator 30 86 26 30 5/20/20 15:00 26 134/69 Mechanical Ventilator 30 5/20/20 15:00 85 29 134/69 (90) 97 5/20/20 14:00 81 26 140/65 (90) 100 5/20/20 14:00 26 140/65 Mechanical Ventilator 30 520/20 13:00 26 154/73 Mechanical Ventilator 30 520/20 13:00 87 26 154/73 (100) 100 520/20 12:00 Mechanical Ventilator 5/20/20 12:00 83 5/20/20 12:00 101.0 89 26 135/67 (89) 100 5/20/20 12:00 90 26 135/67 (89) 99 520/20 12:00 26 135/67 Mechanical Ventilator 30 520/20 11:41 80 26 100 Mechanical Ventilator 30 81 26 30 520/20 11:30 93 26 149/76 (100) 99 52020 11:00 83 26 125/64 (84) 100 52020 11:00 26 125/64 Mechanical Ventilator 30 2020 10:45 84 26 142/68 (92) 100 5/20/20 10:30 84 18 118/67 (84) 100 520/20 10:15 92 26 155/74 (101) 100 520/20 10:11 92 26 30 520/20 10:10 99 520/20 10:00 26 141/70 Mechanical Ventilator 30 20 10:00 91 26 141/70 (93) 99 52020 09:30 93 24 136/72 (93) 99 520/20 09:00 89 26 138/66 (90) 99 520/20 08:30 90 26 115/65 (82) 99 520/20 08:18 30 520/20 08:14 104 34 30 5/20/20 08:00 Mechanical Ventilator 20 08:00 84 520 08:00 100.0 101 35 159/77 (104) 99 520/20 07:48 30 520/20 07:48 91 34 30 30 5/20/20 07:30 90 22 156/73 (100) 99 5/20/20 07:20 81 26 99 Mechanical Ventilator 30 82 26 30 5/20/20 07:00 87 26 133/82 (99) 98 5/20/20 06:30 82 26 120/69 (86) 99 5/20/20 06:30 93 17 5/20/20 06:00 93 17 144/73 (96) 99 5/20/20 05:30 90 24 141/74 (96) 99 520/20 05:00 81 22 149/72 (97) 99 520/20 04:30 87 25 125/54 (77) 99 5/20/20 04:00 30 06/30/19 04:00 83 06/30/19 04:00 Mechanical Ventilator 06/30/19 04:00 25 136/79 Mechanical Ventilator 30 06/30/19 04:00 99.9 81 25 136/79 (98) 99 06/30/19 03:30 90 23 132/66 (88) 99 06/30/19 03:00 93 34 149/73 (98) 97 06/30/19 03:00 34 149/73 Mechanical Ventilator 30 06/30/19 02:37 81 26 100 Mechanical Ventilator 30 83 26 30 06/30/19 02:30 70 26 131/57 (81) 100 06/30/19 02:00 26 118/59 Mechanical Ventilator 30 06/30/19 02:00 69 26 118/59 (78) 100 06/30/19 01:30 69 26 124/63 (83) 100 06/30/19 01:00 16 134/63 Mechanical Ventilator 30 06/30/19 01:00 75 16 134/63 (86) 100 06/30/19 00:30 82 26 132/66 (88) 100 Micro: Microbiology Date/Time Source Procedure Growth Status 06/28/19 16:50 Nasopharynx Coronavirus COVID-19 PCR ([facility]) - Final Complete Accucheck: 210 Critical Care - Subjective ROS Limited/Unobtainable: No Condition: improving IV Access: central FI02: 30 Vent Support Breath Rate: 26 Vent Support Mode: AC Vent Tidal Volume: 500 Sputum Amount: Small PEEP: 5.0 PIP: 29 Tube Feeding Amount: 35 I&O: Intake and Output 06/30/19 07/01/19 19:00 07:00 Intake Total 600 ml 440 ml Output Total 55 ml Balance 545 ml 440 ml Free Water 180 ml IV Total 50 ml Tube Feeding 350 ml 140 ml Other 200 ml 120 ml Output Urine Total 55 ml # Bowel Movements 1 1 ET-Tube: 7.5 ET Position: 26 Arturo Mckeon MD July 01, 2019 00:03
[2019-07-01] MEDS: Albuterol 90mcg Inhaler 8gm INH SCH ×6 (03:04→23:05)
[2019-07-01 04:52] LABS: EOSINOPHILS % (AUTO) 0.5 % (0.0-3.0); HEMATOCRIT 25.4 % (42.0-52.0); HEMOGLOBIN 8.1 G/DL (14.2-18.0); MEAN CORPUSCULAR VOLUME 93 FL (80-99); NEUTROPHILS % (AUTO) 80.5 % (45.0-75.0); PLATELET COUNT 430 K/UL (150-450); RED BLOOD COUNT 2.71 M/UL (4.70-6.10); RED CELL DISTRIBUTION WIDTH 17.6 % (11.6-14.8); WHITE BLOOD COUNT 12.3 K/UL (4.8-10.8)
[2019-07-01 05:32] LABS: ALANINE AMINOTRANSFERASE 10 U/L (12-78); ALBUMIN 2.1 G/DL (3.4-5.0); ALBUMIN/GLOBULIN RATIO 0.3 (1.0-2.7); ALKALINE PHOSPHATASE 87 U/L (46-116); ANION GAP 14 mmol/L (5-15); ASPARTATE AMINO TRANSFERASE 25 U/L (15-37); BILIRUBIN,TOTAL 0.4 MG/DL (0.2-1.0); BLOOD UREA NITROGEN 68 mg/dL (7-18); CALCIUM 9.5 MG/DL (8.5-10.1); CARBON DIOXIDE 29 MMOL/L (21-32); CHLORIDE 101 MMOL/L (98-107); CREATININE 8.4 MG/DL (0.55-1.30); PHOSPHORUS 4.6 MG/DL (2.5-4.9); POTASSIUM 3.6 MMOL/L (3.5-5.1); SODIUM 144 MMOL/L (136-145)
[2019-07-01] MEDS: Renvela 800mg Pkt NG SCH ×3 (05:42→21:33)
[2019-07-01] MEDS: fentaNYL 2500mcg/NS 250ml IV SCH (06:00)
[2019-07-01] MEDS: NovoLOG Insulin Flexpen SUBQ SCH ×3 (06:20→18:00)
--- NOTE | 2019-07-01 08:16 | Hematology/Onc Progress Note ---
Assessment/Plan Assessment/Plan Assessment and Recs: # Anemia of chronic disease, likely related ot underlying kidney disease has COIVD19++ --> hgb trend 9-->8-->7.3-->7.9-->6.8->9.5-->10->8.3-->7.7-->7.1-->8.9->8.8->7.7 -->8.1 ->7.9-->7.7 -->8.2-->8.1 --> transfuse as needed, hgb goal >7 --> no evidence of hemolysis --> peripheral smear has been reviewed --> epogen started three x a week ==>> transfuse 06/08, 06/15, # Leukocytosis likely related to suspected COVID-19 virus infection --> completed plaquenil --> trend smear as needed --> initially 4-->11-->14.5-->21-->26-->21->24--.28-->23-->19-->16.2-->21--> 11.2 -->12.5-->12.3 --> pulm is aware --> on abx cefepime/vanc->zosyn/vanc-->off --> pressors as needed --> 06/27 covid 19++ # Thrombocytopenia/Lymphopenia --> likely related to covid19 --> plt 129k-->186k-->251-->285-->384 -->430 # Respiratory failure with covid19+ --> s/p vent # Possible Pneumonia --> abx completed # Cardiomegaly # Transaminitis with Elevated AST # COPD # Chronic Kidney Disease --> per renal hd # Hypertension # Dvt ppx lovenox Appreciate consultation and ernesto Rn Subjective Allergies: Coded Allergies: No Known Allergies (Unverified , 05/28/19) Subjective 06/01 nv, extremely agitated, not allowing labs draws, no night sweats, cbc ordered 06/02 confused, restraints, on abx and plaquenil, hgb 7.9, nrb 15 L 06/03 is with nonrebreather, but not compliant, remains confused 06/05 no bleeding, labs noted, no major bleeding, otherwise comfortable 06/06 labs reviewed, no bleeding, meds noted, no night sweats, on levo and nonrebreather 06/07 labs noted, no bleeding, meds reviewed, no bleeding, wbc higher 06/08 to get 2 units prbc, no night sweats, meds reviewed 06/09 is on cefepime and vanc, labs noted, ernesto Rn, no bleeding 06/10 no major changes, labs reviewed, wbc 28k, on abx, cefepime 06/12 remains in icu, labs noted, no night sweats or bleeding 06/13 sluggish pupils, remains agitated, per psych, no bleding, on vent, wbc sitll high 06/14 still confused, remains on vent, with ng, running nepro, on pressors 06/15 icu, febrile, non verbal, hgb 7.1, blood pending, completed plaq 06/16 remains in the icu, nonverbal, plan for hd tomorrow, ernesto rn 06/17 in icu, on pressor, nonverbal, on abx, no bleeding 06/19 no bleeding, nonverbal in icu, hgb is 7.7 06/20 on zosyn, tube feeds, vent, labs noted, in icu, nv 06/21 gettng hd as per renal, in icu, nv, no bleeding, tfs 06/22 icu, cxr with slight improvement, cooling blanket, weaning today 06/23 wewaning, in icu, on vent, abx, and pressors as needed, labs noted 06/24 failed weaning, off abx, completed plaquenil, hgb 8.1 06/26 icu, weaning for this am, afebrile, hgb 8 06/27 in icu, remains comotose, weaning started on peep, no night sweats 06/28 weaning today, off abx, restraints, no distress, h/h stable 06/29 covid 19+, failed weaning, no blood transfusion needed 06/30 icu, on vent, labs reviewed, no distress Objective Objective Current Medications Medications (Trade) Dose Ordered Sig/Anthony Route PRN Reason Start Time Stop Time Status Last Admin Dose Admin Acetaminophen (Tylenol) 650 mg Q4H PRN NG Temp >100.5 06/13/19 11:00 07/13/19 10:59 06/30/19 21:41 Albuterol Sulfate (Proventil MDI) 2 puff Q4HRT INH 06/06/19 23:00 08/30/19 18:59 07/01/19 07:24 Chlorhexidine Gluconate (Michelle-Hex 2%) 1 applic DAILY@2000 TOPIC 06/07/19 20:00 09/05/19 19:59 06/30/19 20:38 Dextrose (Dextrose 50%) 25 ml Q30M PRN IV Hypoglycemia 06/20/19 19:30 09/18/19 19:29 Dextrose (Dextrose 50%) 50 ml Q30M PRN IV Hypoglycemia 06/20/19 19:30 09/18/19 19:29 Docusate Sodium (Colace) 100 mg THREE TIMES A DAY NG 06/07/19 13:00 07/07/19 12:59 06/30/19 12:03 Dopamine HCl/ Dextrose 250 ml @ 0 mls/hr Q24H PRN IV For hypotension 06/13/19 08:15 09/11/19 08:14 Enoxaparin Sodium (Lovenox) 30 mg DAILY SUBQ 06/07/19 09:00 08/27/19 08:59 06/30/19 09:47 Epoetin Aftab (Epoetin Aftab(ESRD on dialysis)) 10,000 unit FRI-FRI-FRI SUBQ 06/07/19 21:00 08/31/19 20:59 06/30/19 21:24 Fentanyl Citrate 250 ml @ 0 mls/hr Q24H IV 06/24/19 06:00 09/22/19 05:59 06/29/19 23:01 Hydralazine HCl (Apresoline) 10 mg Q4H PRN IV Blood pressure over 160 systol 06/07/19 10:15 09/05/19 10:14 Insulin Aspart (NovoLOG) EVERY 6 HOURS SUBQ 06/21/19 00:00 09/19/19 00:00 07/01/19 06:20 Metoclopramide HCl (Reglan) 5 mg Q8H PRN IVP Nausea & Vomiting 06/18/19 12:00 07/18/19 11:59 06/19/19 00:50 Midodrine (Pro-Amatine) 10 mg THREE TIMES A DAY NG 06/09/19 13:00 09/07/19 12:59 06/30/19 17:26 Norepinephrine Bitartrate 8 mg/ Dextrose 283 ml @ 0 mls/hr Q24H IV 06/23/19 23:00 07/23/19 22:59 06/25/19 14:38 Pantoprazole (Protonix) 40 mg DAILY IVP 06/19/19 09:00 07/19/19 08:59 06/30/19 09:46 Sevelamer Carbonate (Renvela) 1,600 mg Q8HR NG 06/25/19 22:00 09/05/19 12:59 07/01/19 05:42 Last 24 Hour Vital Signs Date Time Temp Pulse Resp B/P (MAP) Pulse Ox O2 Delivery O2 Flow Rate FiO2 07/01/19 08:00 81 26 143/67 (92) 100 07/01/19 08:00 30 07/01/19 07:22 81 26 100 Mechanical Ventilator 30 79 26 30 07/01/19 07:00 81 26 135/65 (88) 100 07/01/19 06:30 80 21 07/01/19 06:30 80 21 120/66 (84) 100 07/01/19 06:00 82 25 142/69 (93) 100 07/01/19 06:00 24 142/69 Mechanical Ventilator 30 07/01/19 05:30 84 25 148/69 (95) 99 07/01/19 05:00 86 17 156/68 (97) 99 07/01/19 04:30 85 15 143/68 (93) 100 07/01/19 04:00 98.9 81 11 143/65 (91) 99 07/01/19 04:00 30 07/01/19 04:00 26 143/65 Mechanical Ventilator 30 07/01/19 04:00 81 07/01/19 04:00 Mechanical Ventilator 07/01/19 03:30 79 24 139/66 (90) 100 07/01/19 03:03 86 22 100 Mechanical Ventilator 30 82 26 30 07/01/19 03:00 79 22 141/72 (95) 99 07/01/19 03:00 22 141/72 Mechanical Ventilator 30 07/01/19 02:30 73 25 105/61 (76) 100 07/01/19 02:00 75 25 108/57 (74) 100 20 02:00 25 108/57 Mechanical Ventilator 30 20 01:30 84 26 127/70 (89) 100 20 01:00 78 26 114/59 (77) 100 20 01:00 26 114/59 Mechanical Ventilator 30 20 00:30 82 27 119/61 (80) 100 20 00:00 99.4 75 23 113/64 (80) 100 20 00:00 23 113/64 Mechanical Ventilator 30 20 00:00 Mechanical Ventilator 20 23:54 99.4 52020 23:30 75 26 115/60 (78) 99 20 23:00 27 114/64 Mechanical Ventilator 30 20 23:00 152/72 52020 23:00 78 27 114/64 (81) 99 20 22:49 82 25 100 Mechanical Ventilator 30 84 25 30 20 22:30 82 26 115/63 (80) 99 20/20 22:00 18 114/115 Mechanical Ventilator 30 20 22:00 91 18 144/115 (125) 100 20 21:30 101.3 85 23 140/73 (95) 99 5/20/20 21:00 85 28 139/66 (90) 99 5/20/20 21:00 27 139/68 Mechanical Ventilator 30 20/20 20:30 84 25 132/59 (83) 99 5/20/20 20:00 Mechanical Ventilator 520/20 20:00 83 5/20/20 20:00 30 5/20/20 20:00 26 131/58 Mechanical Ventilator 30 5/20/20 20:00 83 26 133/58 (83) 99 5/20/20 19:30 94 27 143/82 (102) 99 5/20/20 19:08 96 31 100 Mechanical Ventilator 30 86 26 30 5/20/20 19:00 26 142/90 Mechanical Ventilator 30 5/20/20 19:00 102 37 142/90 (107) 98 5/20/20 18:30 97 29 151/74 (99) 99 5/20/20 18:00 26 137/66 Mechanical Ventilator 30 5/20/20 18:00 87 26 137/66 (89) 98 5/20/20 17:47 81 26 30 520/20 17:30 79 3 129/68 (88) 100 520/20 17:00 79 26 129/63 (85) 100 520/20 17:00 26 129/63 Mechanical Ventilator 30 20 16:30 76 22 129/53 (78) 100 520 16:00 Mechanical Ventilator 520 16:00 80 52020 16:00 30 520 16:00 98.0 74 26 132/63 (86) 100 520 16:00 26 132/63 Mechanical Ventilator 30 06/30/19 15:10 101 27 100 Mechanical Ventilator 30 86 26 30 20 15:00 26 134/69 Mechanical Ventilator 30 20 15:00 85 29 134/69 (90) 97 20 14:00 81 26 140/65 (90) 100 20 14:00 26 140/65 Mechanical Ventilator 30 06/30/19 13:00 26 154/73 Mechanical Ventilator 30 20 13:00 87 26 154/73 (100) 100 20 12:00 Mechanical Ventilator 20 12:00 83 20 12:00 101.0 89 26 135/67 (89) 100 520 12:00 90 26 135/67 (89) 99 2020 12:00 26 135/67 Mechanical Ventilator 30 06/30/19 11:41 80 26 100 Mechanical Ventilator 30 81 26 30 20 11:30 93 26 149/76 (100) 99 520/20 11:00 83 26 125/64 (84) 100 520/20 11:00 26 125/64 Mechanical Ventilator 30 20 10:45 84 26 142/68 (92) 100 52020 10:30 84 18 118/67 (84) 100 520/20 10:15 92 26 155/74 (101) 100 520/20 10:11 92 26 30 520/20 10:10 99 52020 10:00 26 141/70 Mechanical Ventilator 30 20 10:00 91 26 141/70 (93) 99 20 09:30 93 24 136/72 (93) 99 20 09:00 89 26 138/66 (90) 99 520 08:30 90 26 115/65 (82) 99 20 08:18 30 520 08:14 104 34 30 52020 08:00 Mechanical Ventilator 06/30/19 08:00 84 5 08:00 100.0 101 35 159/77 (104) 99 20 07:48 30 520 07:48 91 34 30 30 520 07:30 90 22 156/73 (100) 99 06/30/19 07:20 81 26 99 Mechanical Ventilator 30 82 26 30 06/30/19 07:00 87 26 133/82 (99) 98 06/30/19 06:30 82 26 120/69 (86) 99 06/30/19 06:30 93 17 06/30/19 06:00 93 17 144/73 (96) 99 06/30/19 05:30 90 24 141/74 (96) 99 06/30/19 05:00 81 22 149/72 (97) 99 06/30/19 04:30 87 25 125/54 (77) 99 06/30/19 04:00 30 06/30/19 04:00 83 20 04:00 Mechanical Ventilator 06/30/19 04:00 25 136/79 Mechanical Ventilator 30 06/30/19 04:00 99.9 81 25 136/79 (98) 99 06/30/19 03:30 90 23 132/66 (88) 99 20 03:00 93 34 149/73 (98) 97 06/30/19 03:00 34 149/73 Mechanical Ventilator 30 06/30/19 02:37 81 26 100 Mechanical Ventilator 30 83 26 30 20 02:30 70 26 131/57 (81) 100 20 02:00 26 118/59 Mechanical Ventilator 30 20 02:00 69 26 118/59 (78) 100 20 01:30 69 26 124/63 (83) 100 20 01:00 16 134/63 Mechanical Ventilator 30 06/30/19 01:00 75 16 134/63 (86) 100 06/30/19 00:30 82 26 132/66 (88) 100 06/30/19 00:00 Mechanical Ventilator 06/30/19 00:00 26 128/62 Mechanical Ventilator 30 06/30/19 00:00 30 06/30/19 00:00 75 06/30/19 00:00 99.4 73 26 128/62 (84) 100 06/29/19 23:30 74 26 113/60 (77) 100 06/29/19 23:01 25 168/80 Mechanical Ventilator 30 06/29/19 23:00 80 16 132/59 (83) 100 06/29/19 23:00 16 132/59 Mechanical Ventilator 30 06/29/19 23:00 168/80 06/29/19 22:44 84 26 100 Mechanical Ventilator 30 83 26 30 06/29/19 22:30 75 25 122/57 (78) 100 06/29/19 22:00 74 25 120/61 (80) 100 06/29/19 22:00 25 120/61 Mechanical Ventilator 30 06/29/19 21:30 76 25 137/60 (85) 100 06/29/19 21:00 25 133/56 Mechanical Ventilator 30 06/29/19 21:00 87 25 133/56 (81) 100 06/29/19 20:30 78 26 116/57 (76) 99 06/29/19 20:00 87 06/29/19 20:00 Mechanical Ventilator 06/29/19 20:00 30 06/29/19 20:00 24 125/55 Mechanical Ventilator 30 06/29/19 20:00 99.5 88 24 125/55 (78) 99 06/29/19 19:34 74 26 99 Mechanical Ventilator 30 84 26 30 06/29/19 19:30 88 24 137/65 (89) 100 06/29/19 19:00 26 93/51 Mechanical Ventilator 30 06/29/19 19:00 75 26 93/51 (65) 98 06/29/19 18:15 88 24 107/52 (70) 97 20 18:00 85 26 101/52 (68) 97 20 18:00 26 101/52 Mechanical Ventilator 30 06/29/19 17:30 89 26 108/51 (70) 97 5/19/20 17:00 26 156/79 Mechanical Ventilator 30 06/29/19 17:00 107 23 156/79 (104) 97 06/29/19 16:30 91 0 107/54 (71) 95 06/29/19 16:00 99.7 95 0 109/55 (73) 94 06/29/19 16:00 26 109/55 Mechanical Ventilator 30 06/29/19 16:00 Mechanical Ventilator 06/29/19 16:00 30 06/29/19 16:00 98 06/29/19 15:30 97 26 104/55 (71) 92 06/29/19 15:09 90 26 30 06/29/19 15:00 26 112/61 Mechanical Ventilator 30 06/29/19 15:00 100 26 112/61 (78) 90 06/29/19 14:30 102 26 104/61 (75) 86 06/29/19 14:00 26 118/67 Mechanical Ventilator 30 06/29/19 14:00 111 26 118/67 (84) 87 06/29/19 13:00 30 176/94 Mechanical Ventilator 30 06/29/19 13:00 123 51 176/94 (121) 94 06/29/19 12:45 122 35 118/70 (86) 94 06/29/19 12:30 123 34 114/58 (76) 96 06/29/19 12:15 123 40 124/68 (86) 97 06/29/19 12:00 100.0 119 53 134/80 (98) 95 06/29/19 12:00 50 134/80 Mechanical Ventilator 30 06/29/19 12:00 Mechanical Ventilator 06/29/19 12:00 115 06/29/19 12:00 30 06/29/19 11:45 116 45 144/75 (98) 92 06/29/19 11:30 117 50 158/84 (108) 91 06/29/19 11:14 121 30 30 06/29/19 11:00 26 136/73 Mechanical Ventilator 30 06/29/19 11:00 119 35 136/73 (94) 90 06/29/19 10:45 108 21 115/61 (79) 94 06/29/19 10:30 101 18 117/75 (89) 95 06/29/19 10:23 103 17 147/75 (99) 97 06/29/19 10:00 107 19 154/76 (102) 97 5/19/20 10:00 26 154/76 Mechanical Ventilator 30 06/29/19 09:00 30 06/29/19 09:00 40 165/85 Mechanical Ventilator 30 06/29/19 09:00 96 40 165/85 (111) 100 06/29/19 08:47 105 37 30 06/29/19 08:33 100 06/29/19 08:33 91 34 30 30 06/29/19 08:30 30 Intake and Output 06/30/19 07/01/19 19:00 07:00 Intake Total 600 ml 620 ml Output Total 55 ml 25 ml Balance 545 ml 595 ml Free Water 180 ml IV Total 50 ml 40 ml Tube Feeding 350 ml 280 ml Other 200 ml 120 ml Output Urine Total 55 ml 25 ml # Bowel Movements 1 2 Labs Test 06/29/19 04:00 06/30/19 04:00 07/01/19 03:50 White Blood Count 12.5 K/UL (4.8-10.8) 12.8 K/UL (4.8-10.8) 12.3 K/UL (4.8-10.8) Red Blood Count 2.63 M/UL (4.70-6.10) 2.77 M/UL (4.70-6.10) 2.71 M/UL (4.70-6.10) Hemoglobin 7.7 G/DL (14.2-18.0) 8.2 G/DL (14.2-18.0) 8.1 G/DL (14.2-18.0) Hematocrit 24.6 % (42.0-52.0) 25.9 % (42.0-52.0) 25.4 % (42.0-52.0) Mean Corpuscular Volume 94 FL (80-99) 94 FL (80-99) 93 FL (80-99) Mean Corpuscular Hemoglobin 29.4 PG (27.0-31.0) 29.5 PG (27.0-31.0) 29.7 PG (27.0-31.0) Mean Corpuscular Hemoglobin Concent 31.3 G/DL (32.0-36.0) 31.5 G/DL (32.0-36.0) 31.8 G/DL (32.0-36.0) Red Cell Distribution Width 18.5 % (11.6-14.8) 18.1 % (11.6-14.8) 17.6 % (11.6-14.8) Platelet Count 402 K/UL (150-450) 389 K/UL (150-450) 430 K/UL (150-450) Mean Platelet Volume 6.3 FL (6.5-10.1) 6.6 FL (6.5-10.1) 6.1 FL (6.5-10.1) Neutrophils (%) (Auto) % (45.0-75.0) 82.8 % (45.0-75.0) 80.5 % (45.0-75.0) Lymphocytes (%) (Auto) % (20.0-45.0) 11.1 % (20.0-45.0) 10.0 % (20.0-45.0) Monocytes (%) (Auto) % (1.0-10.0) 4.4 % (1.0-10.0) 8.0 % (1.0-10.0) Eosinophils (%) (Auto) % (0.0-3.0) 1.0 % (0.0-3.0) 0.5 % (0.0-3.0) Basophils (%) (Auto) % (0.0-2.0) 0.7 % (0.0-2.0) 1.0 % (0.0-2.0) Sodium Level 139 MMOL/L (136-145) 140 MMOL/L (136-145) 144 MMOL/L (136-145) Potassium Level 3.5 MMOL/L (3.5-5.1) 4.1 MMOL/L (3.5-5.1) 3.6 MMOL/L (3.5-5.1) Chloride Level 99 MMOL/L (98-107) 98 MMOL/L (98-107) 101 MMOL/L (98-107) Carbon Dioxide Level 27 MMOL/L (21-32) 30 MMOL/L (21-32) 29 MMOL/L (21-32) Anion Gap 13 mmol/L (5-15) 12 mmol/L (5-15) 14 mmol/L (5-15) Blood Urea Nitrogen 74 mg/dL (7-18) 56 mg/dL (7-18) 68 mg/dL (7-18) Creatinine 8.3 MG/DL (0.55-1.30) 6.8 MG/DL (0.55-1.30) 8.4 MG/DL (0.55-1.30) Estimat Glomerular Filtration Rate 6.5 mL/min (>60) 8.2 mL/min (>60) 6.4 mL/min (>60) Glucose Level 187 MG/DL (74-106) 139 MG/DL (74-106) 138 MG/DL (74-106) Calcium Level 8.7 MG/DL (8.5-10.1) 9.2 MG/DL (8.5-10.1) 9.5 MG/DL (8.5-10.1) Phosphorus Level 4.1 MG/DL (2.5-4.9) 4.6 MG/DL (2.5-4.9) Magnesium Level 2.5 MG/DL (1.8-2.4) 2.9 MG/DL (1.8-2.4) Total Bilirubin 0.3 MG/DL (0.2-1.0) 0.4 MG/DL (0.2-1.0) Aspartate Amino Transf (AST/SGOT) 29 U/L (15-37) 25 U/L (15-37) Alanine Aminotransferase (ALT/SGPT) 11 U/L (12-78) 10 U/L (12-78) Alkaline Phosphatase 95 U/L (46-116) 87 U/L (46-116) C-Reactive Protein, Quantitative 17.3 mg/dL (0.00-0.90) 19.6 mg/dL (0.00-0.90) Pro-B-Type Natriuretic Peptide > 56919 pg/mL (0-125) > 16549 pg/mL (0-125) Total Protein 8.4 G/DL (6.4-8.2) 8.2 G/DL (6.4-8.2) Albumin 2.2 G/DL (3.4-5.0) 2.1 G/DL (3.4-5.0) Globulin 6.2 g/dL 6.1 g/dL Albumin/Globulin Ratio 0.4 (1.0-2.7) 0.3 (1.0-2.7) Uric Acid 8.7 MG/DL (2.6-7.2) Height (Feet): 6 Height (Inches): 1.00 Weight (Pounds): 213 Objective Sp02 EP Interpretation: reviewed General: nv, confused, sedated Heent: bilateral eye normal inspection, bilateral eye PERRL ++Ng Respiratory: normal breath sounds, no respiratory distress, intubated+++ Cardiovascular: regular rate, rhythm, no edema Gastrointestinal: normal inspection, soft, non-distended Rectal: deferred Musculoskeletal: normal range of motion, non-tender Neurologic: alert, motor strength/tone normal, sensory intact, responsive, speech normal Skin: Decubitus/Ulcer - See RN skin exam. : jamaal+ Greg Cabral MD July 01, 2019 08:16
[2019-07-01] MEDS: Docusate 100mg/10ml Liq NG SCH ×3 (08:31→17:05)
[2019-07-01] MEDS: Pantoprazole Inj IVP SCH (08:31)
[2019-07-01] MEDS: Midodrine 10mg tab NG SCH ×3 (08:32→18:00)
[2019-07-01] MEDS: Acetaminophen 650mg/20.3ml NG PRN (08:32)
[2019-07-01] MEDS: Enoxaparin 30mg Inj SUBQ SCH (08:33)
--- NOTE | 2019-07-01 08:43 | General Progress Note ---
Assessment/Plan Status: unchanged Assessment/Plan: 1. Diabetes. 2. Hypertension. 3. Coronary artery disease. 4. COPD. 5. Psychiatric disorder with schizophrenia. 6. History of hepatitis C. 7. HLP. 8. Chronic kidney disease, now with acute renal failure. 9. Anemia. 10. Hypothyroidism. 11. Spinal stenosis. 12. Constipation. 13. GERD. 14. COVID positive HD per nephrology extubated pending swallow eval recent labs and notes reviewed stable H&H will fu Subjective ROS Limited/Unobtainable: No Allergies: Coded Allergies: No Known Allergies (Unverified , 05/28/19) Objective Last 24 Hour Vital Signs Date Time Temp Pulse Resp B/P (MAP) Pulse Ox O2 Delivery O2 Flow Rate FiO2 07/01/19 08:00 81 26 143/67 (92) 100 07/01/19 08:00 30 07/01/19 07:22 81 26 100 Mechanical Ventilator 30 79 26 30 07/01/19 07:00 81 26 135/65 (88) 100 07/01/19 06:30 80 21 07/01/19 06:30 80 21 120/66 (84) 100 07/01/19 06:00 82 25 142/69 (93) 100 07/01/19 06:00 24 142/69 Mechanical Ventilator 30 07/01/19 05:30 84 25 148/69 (95) 99 07/01/19 05:00 86 17 156/68 (97) 99 07/01/19 04:30 85 15 143/68 (93) 100 07/01/19 04:00 98.9 81 11 143/65 (91) 99 07/01/19 04:00 30 07/01/19 04:00 26 143/65 Mechanical Ventilator 30 07/01/19 04:00 81 07/01/19 04:00 Mechanical Ventilator 07/01/19 03:30 79 24 139/66 (90) 100 07/01/19 03:03 86 22 100 Mechanical Ventilator 30 82 26 30 07/01/19 03:00 79 22 141/72 (95) 99 07/01/19 03:00 22 141/72 Mechanical Ventilator 30 07/01/19 02:30 73 25 105/61 (76) 100 07/01/19 02:00 75 25 108/57 (74) 100 07/01/19 02:00 25 108/57 Mechanical Ventilator 30 07/01/19 01:30 84 26 127/70 (89) 100 20 01:00 78 26 114/59 (77) 100 20 01:00 26 114/59 Mechanical Ventilator 30 07/01/19 00:30 82 27 119/61 (80) 100 07/01/19 00:00 99.4 75 23 113/64 (80) 100 07/01/19 00:00 23 113/64 Mechanical Ventilator 30 07/01/19 00:00 Mechanical Ventilator 20 23:54 99.4 20 23:30 75 26 115/60 (78) 99 20 23:00 27 114/64 Mechanical Ventilator 30 06/30/19 23:00 152/72 06/30/19 23:00 78 27 114/64 (81) 99 20 22:49 82 25 100 Mechanical Ventilator 30 84 25 30 06/30/19 22:30 82 26 115/63 (80) 99 20 22:00 18 114/115 Mechanical Ventilator 30 20 22:00 91 18 144/115 (125) 100 06/30/19 21:30 101.3 85 23 140/73 (95) 99 2020 21:00 85 28 139/66 (90) 99 2020 21:00 27 139/68 Mechanical Ventilator 30 20 20:30 84 25 132/59 (83) 99 2020 20:00 Mechanical Ventilator 20 20:00 83 520/20 20:00 30 52020 20:00 26 131/58 Mechanical Ventilator 30 20/20 20:00 83 26 133/58 (83) 99 20/20 19:30 94 27 143/82 (102) 99 520/20 19:08 96 31 100 Mechanical Ventilator 30 86 26 30 520/20 19:00 26 142/90 Mechanical Ventilator 30 520/20 19:00 102 37 142/90 (107) 98 5/20/20 18:30 97 29 151/74 (99) 99 20/20 18:00 26 137/66 Mechanical Ventilator 30 520/20 18:00 87 26 137/66 (89) 98 5/20/20 17:47 81 26 30 520/20 17:30 79 3 129/68 (88) 100 52020 17:00 79 26 129/63 (85) 100 52020 17:00 26 129/63 Mechanical Ventilator 30 20 16:30 76 22 129/53 (78) 100 520/20 16:00 Mechanical Ventilator 520 16:00 80 52020 16:00 30 520 16:00 98.0 74 26 132/63 (86) 100 52020 16:00 26 132/63 Mechanical Ventilator 30 20 15:10 101 27 100 Mechanical Ventilator 30 86 26 30 20 15:00 26 134/69 Mechanical Ventilator 30 20 15:00 85 29 134/69 (90) 97 20 14:00 81 26 140/65 (90) 100 20 14:00 26 140/65 Mechanical Ventilator 30 06/30/19 13:00 26 154/73 Mechanical Ventilator 30 20 13:00 87 26 154/73 (100) 100 20 12:00 Mechanical Ventilator 20 12:00 83 20 12:00 101.0 89 26 135/67 (89) 100 20 12:00 90 26 135/67 (89) 99 2020 12:00 26 135/67 Mechanical Ventilator 30 20 11:41 80 26 100 Mechanical Ventilator 30 81 26 30 06/30/19 11:30 93 26 149/76 (100) 99 20 11:00 83 26 125/64 (84) 100 520/20 11:00 26 125/64 Mechanical Ventilator 30 20 10:45 84 26 142/68 (92) 100 20 10:30 84 18 118/67 (84) 100 20 10:15 92 26 155/74 (101) 100 520/20 10:11 92 26 30 520/20 10:10 99 520/20 10:00 26 141/70 Mechanical Ventilator 30 20 10:00 91 26 141/70 (93) 99 20 09:30 93 24 136/72 (93) 99 06/30/19 09:00 89 26 138/66 (90) 99 Intake and Output 06/30/19 07/01/19 19:00 07:00 Intake Total 600 ml 620 ml Output Total 55 ml 25 ml Balance 545 ml 595 ml Free Water 180 ml IV Total 50 ml 40 ml Tube Feeding 350 ml 280 ml Other 200 ml 120 ml Output Urine Total 55 ml 25 ml # Bowel Movements 1 2 Laboratory Tests 07/01/19 03:50: White Blood Count 12.3H, Red Blood Count 2.71L, Hemoglobin 8.1L, Hematocrit 25.4L, Mean Corpuscular Volume 93, Mean Corpuscular Hemoglobin 29.7, Mean Corpuscular Hemoglobin Concent 31.8L, Red Cell Distribution Width 17.6H, Platelet Count 430, Mean Platelet Volume 6.1L, Neutrophils (%) (Auto) 80.5H, Lymphocytes (%) (Auto) 10.0L, Monocytes (%) (Auto) 8.0, Eosinophils (%) (Auto) 0.5, Basophils (%) (Auto) 1.0, Sodium Level 144, Potassium Level 3.6, Chloride Level 101, Carbon Dioxide Level 29, Anion Gap 14, Blood Urea Nitrogen 68H, Creatinine 8.4H, Estimat Glomerular Filtration Rate 6.4, Glucose Level 138H, Uric Acid 8.7H, Calcium Level 9.5, Phosphorus Level 4.6, Magnesium Level 2.9H, Total Bilirubin 0.4, Aspartate Amino Transf (AST/SGOT) 25, Alanine Aminotransferase (ALT/SGPT) 10L, Alkaline Phosphatase 87, C-Reactive Protein, Quantitative 19.6H, Pro-B-Type Natriuretic Peptide > 29117A, Total Protein 8.2, Albumin 2.1L, Globulin 6.1, Albumin/Globulin Ratio 0.3L Height (Feet): 6 Height (Inches): 1.00 Weight (Pounds): 213 General Appearance: no apparent distress, lethargic Neck: supple Cardiovascular: tachycardia Respiratory/Chest: decreased breath sounds Abdomen: soft, hypoactive bowel sounds Extremities: non-tender Marito Ramires MD July 01, 2019 08:43
--- NOTE | 2019-07-01 08:45 | General Progress Note ---
Assessment/Plan Status: unchanged Assessment/Plan: 1. Diabetes. 2. Hypertension. 3. Coronary artery disease. 4. COPD. 5. Psychiatric disorder with schizophrenia. 6. History of hepatitis C. 7. HLP. 8. Chronic kidney disease, now with acute renal failure. 9. Anemia. 10. Hypothyroidism. 11. Spinal stenosis. 12. Constipation. 13. GERD. 14. COVID positive HD per nephrology weaning, pending extubation d/w the nurse recent labs and notes reviewed stable H&H will fu Subjective ROS Limited/Unobtainable: No Allergies: Coded Allergies: No Known Allergies (Unverified , 05/28/19) Objective Last 24 Hour Vital Signs Date Time Temp Pulse Resp B/P (MAP) Pulse Ox O2 Delivery O2 Flow Rate FiO2 07/01/19 08:00 81 26 143/67 (92) 100 07/01/19 08:00 30 07/01/19 07:22 81 26 100 Mechanical Ventilator 30 79 26 30 07/01/19 07:00 81 26 135/65 (88) 100 07/01/19 06:30 80 21 07/01/19 06:30 80 21 120/66 (84) 100 07/01/19 06:00 82 25 142/69 (93) 100 07/01/19 06:00 24 142/69 Mechanical Ventilator 30 07/01/19 05:30 84 25 148/69 (95) 99 07/01/19 05:00 86 17 156/68 (97) 99 07/01/19 04:30 85 15 143/68 (93) 100 07/01/19 04:00 98.9 81 11 143/65 (91) 99 07/01/19 04:00 30 07/01/19 04:00 26 143/65 Mechanical Ventilator 30 07/01/19 04:00 81 07/01/19 04:00 Mechanical Ventilator 07/01/19 03:30 79 24 139/66 (90) 100 07/01/19 03:03 86 22 100 Mechanical Ventilator 30 82 26 30 07/01/19 03:00 79 22 141/72 (95) 99 07/01/19 03:00 22 141/72 Mechanical Ventilator 30 07/01/19 02:30 73 25 105/61 (76) 100 07/01/19 02:00 75 25 108/57 (74) 100 07/01/19 02:00 25 108/57 Mechanical Ventilator 30 07/01/19 01:30 84 26 127/70 (89) 100 07/01/19 01:00 78 26 114/59 (77) 100 20 01:00 26 114/59 Mechanical Ventilator 30 07/01/19 00:30 82 27 119/61 (80) 100 07/01/19 00:00 99.4 75 23 113/64 (80) 100 07/01/19 00:00 23 113/64 Mechanical Ventilator 30 07/01/19 00:00 Mechanical Ventilator 06/30/19 23:54 99.4 06/30/19 23:30 75 26 115/60 (78) 99 06/30/19 23:00 27 114/64 Mechanical Ventilator 30 06/30/19 23:00 152/72 06/30/19 23:00 78 27 114/64 (81) 99 06/30/19 22:49 82 25 100 Mechanical Ventilator 30 84 25 30 06/30/19 22:30 82 26 115/63 (80) 99 20 22:00 18 114/115 Mechanical Ventilator 30 06/30/19 22:00 91 18 144/115 (125) 100 06/30/19 21:30 101.3 85 23 140/73 (95) 99 20 21:00 85 28 139/66 (90) 99 20 21:00 27 139/68 Mechanical Ventilator 30 06/30/19 20:30 84 25 132/59 (83) 99 2020 20:00 Mechanical Ventilator 20 20:00 83 2020 20:00 30 2020 20:00 26 131/58 Mechanical Ventilator 30 20 20:00 83 26 133/58 (83) 99 20/20 19:30 94 27 143/82 (102) 99 2020 19:08 96 31 100 Mechanical Ventilator 30 86 26 30 52020 19:00 26 142/90 Mechanical Ventilator 30 20/20 19:00 102 37 142/90 (107) 98 /20/20 18:30 97 29 151/74 (99) 99 2020 18:00 26 137/66 Mechanical Ventilator 30 20 18:00 87 26 137/66 (89) 98 5/20/20 17:47 81 26 30 5/20/20 17:30 79 3 129/68 (88) 100 5/20/20 17:00 79 26 129/63 (85) 100 52020 17:00 26 129/63 Mechanical Ventilator 30 2020 16:30 76 22 129/53 (78) 100 5/20/20 16:00 Mechanical Ventilator 520/20 16:00 80 52020 16:00 30 52020 16:00 98.0 74 26 132/63 (86) 100 520/20 16:00 26 132/63 Mechanical Ventilator 30 20 15:10 101 27 100 Mechanical Ventilator 30 86 26 30 520 15:00 26 134/69 Mechanical Ventilator 30 20 15:00 85 29 134/69 (90) 97 52020 14:00 81 26 140/65 (90) 100 20 14:00 26 140/65 Mechanical Ventilator 30 06/30/19 13:00 26 154/73 Mechanical Ventilator 30 20 13:00 87 26 154/73 (100) 100 52020 12:00 Mechanical Ventilator 20 12:00 83 52020 12:00 101.0 89 26 135/67 (89) 100 52020 12:00 90 26 135/67 (89) 99 20/20 12:00 26 135/67 Mechanical Ventilator 30 20 11:41 80 26 100 Mechanical Ventilator 30 81 26 30 20 11:30 93 26 149/76 (100) 99 520/20 11:00 83 26 125/64 (84) 100 520/20 11:00 26 125/64 Mechanical Ventilator 30 06/29/20 10:45 84 26 142/68 (92) 100 520/20 10:30 84 18 118/67 (84) 100 52020 10:15 92 26 155/74 (101) 100 5/20/20 10:11 92 26 30 5/20/20 10:10 99 5/20/20 10:00 26 141/70 Mechanical Ventilator 30 20 10:00 91 26 141/70 (93) 99 5/20/20 09:30 93 24 136/72 (93) 99 06/30/19 09:00 89 26 138/66 (90) 99 Intake and Output 06/30/19 07/01/19 19:00 07:00 Intake Total 600 ml 620 ml Output Total 55 ml 25 ml Balance 545 ml 595 ml Free Water 180 ml IV Total 50 ml 40 ml Tube Feeding 350 ml 280 ml Other 200 ml 120 ml Output Urine Total 55 ml 25 ml # Bowel Movements 1 2 Laboratory Tests 07/01/19 03:50: White Blood Count 12.3H, Red Blood Count 2.71L, Hemoglobin 8.1L, Hematocrit 25.4L, Mean Corpuscular Volume 93, Mean Corpuscular Hemoglobin 29.7, Mean Corpuscular Hemoglobin Concent 31.8L, Red Cell Distribution Width 17.6H, Platelet Count 430, Mean Platelet Volume 6.1L, Neutrophils (%) (Auto) 80.5H, Lymphocytes (%) (Auto) 10.0L, Monocytes (%) (Auto) 8.0, Eosinophils (%) (Auto) 0.5, Basophils (%) (Auto) 1.0, Sodium Level 144, Potassium Level 3.6, Chloride Level 101, Carbon Dioxide Level 29, Anion Gap 14, Blood Urea Nitrogen 68H, Creatinine 8.4H, Estimat Glomerular Filtration Rate 6.4, Glucose Level 138H, Uric Acid 8.7H, Calcium Level 9.5, Phosphorus Level 4.6, Magnesium Level 2.9H, Total Bilirubin 0.4, Aspartate Amino Transf (AST/SGOT) 25, Alanine Aminotransferase (ALT/SGPT) 10L, Alkaline Phosphatase 87, C-Reactive Protein, Quantitative 19.6H, Pro-B-Type Natriuretic Peptide > 83709J, Total Protein 8.2, Albumin 2.1L, Globulin 6.1, Albumin/Globulin Ratio 0.3L Height (Feet): 6 Height (Inches): 1.00 Weight (Pounds): 213 General Appearance: lethargic EENT: normal ENT inspection Neck: supple Cardiovascular: normal rate Respiratory/Chest: decreased breath sounds Abdomen: soft, hypoactive bowel sounds Extremities: non-tender Marito Ramires MD July 01, 2019 08:45
--- NOTE | 2019-07-01 10:17 | Nephrology Progress Note ---
Assessment/Plan Problem List: (1) CASSANDRA (acute kidney injury) (2) Anemia in chronic kidney disease (CKD) (3) HTN (hypertension) (4) COVID-19 Assessment Acute renal failure most likely superimposed on chronic kidney disease Suspected COVID-19 virus infection Possible Pneumonia, lymphopenia, elevated AST Cardiomegaly, possible CHF COPD Hypertension Anemia, most likely related to chronic kidney disease Plan June 30: Due for dialysis today Remains intubated on ventilator Labs and medication reviewed Discussed with RN Stable from renal standpoint of view June 29: Dialyzed yesterday Due for dialysis tomorrow Stable from renal standpoint to view Keeps failing weaning process June 28: Patient due for dialysis today Stable from renal standpoint to view Continue per consultants June 27: Labs reviewed Due due for dialysis June 28 Discussed with SHANIQUE Silverman per consultants Remains intubated on ventilator June 26 Labs reviewed Dialyzed yesterday Started on weaning today Continue to monitor renal parameters June 25: On dialysis now Potassium supplement implemented Continue per consultants Next dialysis June 27June 15: Status unchanged Dialyzed yesterday will dialyze again tomorrow Potassium supplements given Discussed with RN June 14: Due dialysis today Status: Remains intubated on ventilator June 13: Status unchanged Dialyzed yesterday and duefordialysistomorrow Serum sodium stable today June 21 Remains intubated on ventilator Due dialysis today Emphasized high sodium bath for dialysis June 20: Remains intubated on ventilator Dialyzed June 19 next dialysis June 21 Serum sodium 128, will give 250 cc 3% saline Remains full code Discussed with RN Iron panel ordered June 19: Discussed with RN. Patient due for dialysis today. Continue pulmonary support. Remains full code. June 18: Patient dialyzed yesterday June 17 Serum sodium improved but still low Arrange for dialysis tomorrow June 19 Continue per consultants June 8: Due for dialysis today Today's lab reviewed, low serum sodium noted, Emphasized on high sodium bath to dialysis nurse Discussed with SHANIQUE Yuen June 16: Dialyzed yesterday Remains intubated Labs reviewed, serum sodium 131 Plan to dialyze tomorrow June 17 with high sodium bath Discussed with SHANIQUE Yuen June 6: Due for dialysis today Labs reviewed Discussed with RN Transfuse 1 unit of packed RBCs today for low hemoglobin of 7.1 June 5: Blood pressure well maintained Receive dialysis June 13 next hemodialysis June 15June 4: Discussed with RN in ICU Patient did not receive proper dialysis yesterday due to dialysis catheter malfunction Catheter to be adjusted today and dialyzed to be resumed today Continue per consultants Positive for COVID June 11: Patient now intubated on mechanical ventilation Discussed with SHANIQUE Yuen, today June 12 Patient received dialysis yesterday June 10 next hemodialysis June 12 Blood pressure better maintained Today's labs reviewed Continue per consultants Previously patient received dialysis last evening June 05, next dialysis June 07 which was incomplete due to patient's hypotension Will start on midodrine for blood pressure support. Meanwhile continue other pressors as needed Previously Patient is doing poorly, septic, white blood cells are rising, Hypotension somewhat improved We will keep n.p.o. , NG tube for medications, and change medication to IV as needed Patient remains full code Monitor vancomycin level Previously: Patient pulled out his femoral catheter yesterday June 03 which was reinserted by Dr. Mast Patient scheduled for dialysis again June 04, which again was not done due to dialysis nurse citing catheter malfunction Meanwhile continue management per ID, pulmonary , and psych. Meanwhile white blood cell count is rising. Patient blood pressure borderline low. Will check ABG Previously May 31 : I believe patient need dialysis treatment He however needs to competency assessment if can make decisions or not I will communicate with Dr. Mulligan Previously: Per pulmonary and ID advice Adjust blood pressure medication Renal diet Anemia work-up 2D echocardiogram refused Kidney ultrasound refused Jules catheter Urine studies Per orders Subjective ROS Limited/Unobtainable: Yes Objective Objective Last 24 Hour Vital Signs Date Time Temp Pulse Resp B/P (MAP) Pulse Ox O2 Delivery O2 Flow Rate FiO2 07/01/19 10:00 98.8 103 5 137/71 (93) 99 07/01/19 09:47 99 07/01/19 09:30 90 11 157/77 (103) 99 07/01/19 09:22 89 21 155/70 (98) 99 07/01/19 09:15 90 26 140/117 (125) 100 07/01/19 09:02 98.9 07/01/19 09:00 100.5 87 27 149/67 (94) 100 07/01/19 08:00 81 26 143/67 (92) 100 07/01/19 08:00 30 07/01/19 07:22 81 26 100 Mechanical Ventilator 30 79 26 30 07/01/19 07:00 81 26 135/65 (88) 100 07/01/19 06:30 80 21 07/01/19 06:30 80 21 120/66 (84) 100 07/01/19 06:00 82 25 142/69 (93) 100 07/01/19 06:00 24 142/69 Mechanical Ventilator 30 07/01/19 05:30 84 25 148/69 (95) 99 07/01/19 05:00 86 17 156/68 (97) 99 07/01/19 04:30 85 15 143/68 (93) 100 07/01/19 04:00 98.9 81 11 143/65 (91) 99 07/01/19 04:00 30 07/01/19 04:00 26 143/65 Mechanical Ventilator 30 07/01/19 04:00 81 07/01/19 04:00 Mechanical Ventilator 07/01/19 03:30 79 24 139/66 (90) 100 07/01/19 03:03 86 22 100 Mechanical Ventilator 30 82 26 30 07/01/19 03:00 79 22 141/72 (95) 99 07/01/19 03:00 22 141/72 Mechanical Ventilator 30 07/01/19 02:30 73 25 105/61 (76) 100 07/01/19 02:00 75 25 108/57 (74) 100 07/01/19 02:00 25 108/57 Mechanical Ventilator 30 07/01/19 01:30 84 26 127/70 (89) 100 07/01/19 01:00 78 26 114/59 (77) 100 07/01/19 01:00 26 114/59 Mechanical Ventilator 30 07/01/19 00:30 82 27 119/61 (80) 100 07/01/19 00:00 99.4 75 23 113/64 (80) 100 07/01/19 00:00 23 113/64 Mechanical Ventilator 30 07/01/19 00:00 Mechanical Ventilator 06/30/19 23:30 75 26 115/60 (78) 99 06/30/19 23:00 27 114/64 Mechanical Ventilator 30 06/30/19 23:00 152/72 06/30/19 23:00 78 27 114/64 (81) 99 06/30/19 22:49 82 25 100 Mechanical Ventilator 30 84 25 30 06/30/19 22:30 82 26 115/63 (80) 99 5/20/20 22:00 18 114/115 Mechanical Ventilator 30 5/20/20 22:00 91 18 144/115 (125) 100 5/20/20 21:30 101.3 85 23 140/73 (95) 99 5/20/20 21:00 85 28 139/66 (90) 99 5/20/20 21:00 27 139/68 Mechanical Ventilator 30 5/20/20 20:30 84 25 132/59 (83) 99 5/20/20 20:00 Mechanical Ventilator 5/20/20 20:00 83 5/20/20 20:00 30 5/20/20 20:00 26 131/58 Mechanical Ventilator 30 5/20/20 20:00 83 26 133/58 (83) 99 5/20/20 19:30 94 27 143/82 (102) 99 5/20/20 19:08 96 31 100 Mechanical Ventilator 30 86 26 30 5/20/20 19:00 26 142/90 Mechanical Ventilator 30 5/20/20 19:00 102 37 142/90 (107) 98 5/20/20 18:30 97 29 151/74 (99) 99 5/20/20 18:00 26 137/66 Mechanical Ventilator 30 520/20 18:00 87 26 137/66 (89) 98 5/20/20 17:47 81 26 30 5/20/20 17:30 79 3 129/68 (88) 100 5/20/20 17:00 79 26 129/63 (85) 100 5/20/20 17:00 26 129/63 Mechanical Ventilator 30 520/20 16:30 76 22 129/53 (78) 100 5/20/20 16:00 Mechanical Ventilator 520/20 16:00 80 5/20/20 16:00 30 5/20/20 16:00 98.0 74 26 132/63 (86) 100 5/20/20 16:00 26 132/63 Mechanical Ventilator 30 5/20/20 15:10 101 27 100 Mechanical Ventilator 30 86 26 30 5/20/20 15:00 26 134/69 Mechanical Ventilator 30 5/20/20 15:00 85 29 134/69 (90) 97 5/20/20 14:00 81 26 140/65 (90) 100 5/20/20 14:00 26 140/65 Mechanical Ventilator 30 520/20 13:00 26 154/73 Mechanical Ventilator 30 5/20/20 13:00 87 26 154/73 (100) 100 06/30/19 12:00 Mechanical Ventilator 06/30/19 12:00 83 06/30/19 12:00 101.0 89 26 135/67 (89) 100 06/30/19 12:00 90 26 135/67 (89) 99 06/30/19 12:00 26 135/67 Mechanical Ventilator 30 06/30/19 11:41 80 26 100 Mechanical Ventilator 30 81 26 30 06/30/19 11:30 93 26 149/76 (100) 99 06/30/19 11:00 83 26 125/64 (84) 100 06/30/19 11:00 26 125/64 Mechanical Ventilator 30 06/30/19 10:45 84 26 142/68 (92) 100 06/30/19 10:30 84 18 118/67 (84) 100 06/30/19 10:15 92 26 155/74 (101) 100 Intake and Output 06/30/19 07/01/19 19:00 07:00 Intake Total 600 ml 620 ml Output Total 55 ml 25 ml Balance 545 ml 595 ml Free Water 180 ml IV Total 50 ml 40 ml Tube Feeding 350 ml 280 ml Other 200 ml 120 ml Output Urine Total 55 ml 25 ml # Bowel Movements 1 2 Laboratory Tests 07/01/19 03:50: White Blood Count 12.3H, Red Blood Count 2.71L, Hemoglobin 8.1L, Hematocrit 25.4L, Mean Corpuscular Volume 93, Mean Corpuscular Hemoglobin 29.7, Mean Corpuscular Hemoglobin Concent 31.8L, Red Cell Distribution Width 17.6H, Platelet Count 430, Mean Platelet Volume 6.1L, Neutrophils (%) (Auto) 80.5H, Lymphocytes (%) (Auto) 10.0L, Monocytes (%) (Auto) 8.0, Eosinophils (%) (Auto) 0.5, Basophils (%) (Auto) 1.0, Sodium Level 144, Potassium Level 3.6, Chloride Level 101, Carbon Dioxide Level 29, Anion Gap 14, Blood Urea Nitrogen 68H, Creatinine 8.4H, Estimat Glomerular Filtration Rate 6.4, Glucose Level 138H, Uric Acid 8.7H, Calcium Level 9.5, Phosphorus Level 4.6, Magnesium Level 2.9H, Total Bilirubin 0.4, Aspartate Amino Transf (AST/SGOT) 25, Alanine Aminotransferase (ALT/SGPT) 10L, Alkaline Phosphatase 87, C-Reactive Protein, Quantitative 19.6H, Pro-B-Type Natriuretic Peptide > 13345T, Total Protein 8.2, Albumin 2.1L, Globulin 6.1, Albumin/Globulin Ratio 0.3L Height (Feet): 6 Height (Inches): 1.00 Weight (Pounds): 213 General Appearance: no apparent distress EENT: other - Intubated on ventilator Cardiovascular: arrhythmia Respiratory/Chest: decreased breath sounds Abdomen: distended Objective No change Mic Cole MD July 01, 2019 10:17
--- NOTE | 2019-07-01 11:00 | Infectious Diseases Prog Note ---
Assessment/Plan Assessment/Plan IMPRESSION: 1. COVID19 pneumonia Positive: 05/27, 05/31 , 06/05, 06/09 ,06/17, 06/19, 06/23, 06/27 2. MRSA carrier. 3. Chronic kidney disease , end-stage renal disease. 4. COPD. 5. Hypertension. 6. Anemia. 7. Hypothyroidism. 8. Hyperlipidemia. 9. Major depression. 10. Leukocytosis 11. Hypotension 12. Hepatitis C 13. Hyperuricemia 14. Diarrhea 15. septic shock 16. Leukocytosis & fever RECOMMENDATIONS: Blood culture from line repeat CXR Start on Vancomycin & Zosyn Finished hydroxychloroquine. Will f/u COVID19 test Case was D/W RN Subjective ROS Limited/Unobtainable: Yes Constitutional: Reports: fever, other - Gi=665.3 Respiratory: Reports: other - failed weaning Allergies: Coded Allergies: No Known Allergies (Unverified , 05/28/19) Objective Vital Signs Last 24 Hour Vital Signs Date Time Temp Pulse Resp B/P (MAP) Pulse Ox O2 Delivery O2 Flow Rate FiO2 07/01/19 10:55 104 26 100 Mechanical Ventilator 30 103 26 30 07/01/19 10:00 98.8 103 5 137/71 (93) 99 07/01/19 09:47 99 07/01/19 09:30 90 11 157/77 (103) 99 07/01/19 09:22 89 21 155/70 (98) 99 07/01/19 09:15 90 26 140/117 (125) 100 07/01/19 09:02 98.9 07/01/19 09:00 100.5 87 27 149/67 (94) 100 07/01/19 08:00 Mechanical Ventilator 07/01/19 08:00 81 26 143/67 (92) 100 07/01/19 08:00 30 07/01/19 07:22 81 26 100 Mechanical Ventilator 30 79 26 30 07/01/19 07:00 81 26 135/65 (88) 100 07/01/19 06:30 80 21 07/01/19 06:30 80 21 120/66 (84) 100 07/01/19 06:00 82 25 142/69 (93) 100 07/01/19 06:00 24 142/69 Mechanical Ventilator 30 07/01/19 05:30 84 25 148/69 (95) 99 07/01/19 05:00 86 17 156/68 (97) 99 07/01/19 04:30 85 15 143/68 (93) 100 07/01/19 04:00 98.9 81 11 143/65 (91) 99 07/01/19 04:00 30 07/01/19 04:00 26 143/65 Mechanical Ventilator 30 07/01/19 04:00 81 07/01/19 04:00 Mechanical Ventilator 07/01/19 03:30 79 24 139/66 (90) 100 07/01/19 03:03 86 22 100 Mechanical Ventilator 30 82 26 30 07/01/19 03:00 79 22 141/72 (95) 99 07/01/19 03:00 22 141/72 Mechanical Ventilator 30 07/01/19 02:30 73 25 105/61 (76) 100 07/01/19 02:00 75 25 108/57 (74) 100 07/01/19 02:00 25 108/57 Mechanical Ventilator 30 07/01/19 01:30 84 26 127/70 (89) 100 07/01/19 01:00 78 26 114/59 (77) 100 07/01/19 01:00 26 114/59 Mechanical Ventilator 30 07/01/19 00:30 82 27 119/61 (80) 100 07/01/19 00:00 99.4 75 23 113/64 (80) 100 07/01/19 00:00 23 113/64 Mechanical Ventilator 30 07/01/19 00:00 Mechanical Ventilator 06/30/19 23:30 75 26 115/60 (78) 99 06/30/19 23:00 27 114/64 Mechanical Ventilator 30 06/30/19 23:00 152/72 06/30/19 23:00 78 27 114/64 (81) 99 06/30/19 22:49 82 25 100 Mechanical Ventilator 30 84 25 30 06/30/19 22:30 82 26 115/63 (80) 99 06/30/19 22:00 18 114/115 Mechanical Ventilator 30 06/30/19 22:00 91 18 144/115 (125) 100 06/30/19 21:30 101.3 85 23 140/73 (95) 99 06/30/19 21:00 85 28 139/66 (90) 99 06/30/19 21:00 27 139/68 Mechanical Ventilator 30 5/20/20 20:30 84 25 132/59 (83) 99 5/20/20 20:00 Mechanical Ventilator 5/20/20 20:00 83 5/20/20 20:00 30 5/20/20 20:00 26 131/58 Mechanical Ventilator 30 5/20/20 20:00 83 26 133/58 (83) 99 5/20/20 19:30 94 27 143/82 (102) 99 5/20/20 19:08 96 31 100 Mechanical Ventilator 30 86 26 30 5/20/20 19:00 26 142/90 Mechanical Ventilator 30 5/20/20 19:00 102 37 142/90 (107) 98 5/20/20 18:30 97 29 151/74 (99) 99 5/20/20 18:00 26 137/66 Mechanical Ventilator 30 5/20/20 18:00 87 26 137/66 (89) 98 5/20/20 17:47 81 26 30 5/20/20 17:30 79 3 129/68 (88) 100 5/20/20 17:00 79 26 129/63 (85) 100 5/20/20 17:00 26 129/63 Mechanical Ventilator 30 5/20/20 16:30 76 22 129/53 (78) 100 5/20/20 16:00 Mechanical Ventilator 520/20 16:00 80 5/20/20 16:00 30 5/20/20 16:00 98.0 74 26 132/63 (86) 100 5/20/20 16:00 26 132/63 Mechanical Ventilator 30 5/20/20 15:10 101 27 100 Mechanical Ventilator 30 86 26 30 5/20/20 15:00 26 134/69 Mechanical Ventilator 30 5/20/20 15:00 85 29 134/69 (90) 97 5/20/20 14:00 81 26 140/65 (90) 100 5/20/20 14:00 26 140/65 Mechanical Ventilator 30 5/20/20 13:00 26 154/73 Mechanical Ventilator 30 5/20/20 13:00 87 26 154/73 (100) 100 5/20/20 12:00 Mechanical Ventilator 5/20/20 12:00 83 5/20/20 12:00 101.0 89 26 135/67 (89) 100 5/20/20 12:00 90 26 135/67 (89) 99 5/20/20 12:00 26 135/67 Mechanical Ventilator 30 06/30/19 11:41 80 26 100 Mechanical Ventilator 30 81 26 30 06/30/19 11:30 93 26 149/76 (100) 99 06/30/19 11:00 83 26 125/64 (84) 100 06/30/19 11:00 26 125/64 Mechanical Ventilator 30 Height (Feet): 6 Height (Inches): 1.00 Weight (Pounds): 213 HEENT: other - orally intubated Respiratory/Chest: other - on Ventilator, FIO2=50% Cardiovascular: tachycardia, other - Subclavian trilumen, Femoral HD line Abdomen: other - orogatric tube Neurologic/Psychiatric: unresponsiveness Microbiology Date/Time Source Procedure Growth Status 06/28/19 16:50 Nasopharynx Coronavirus COVID-19 PCR ([facility]) - Final Complete Laboratory Tests Test 07/01/19 03:50 White Blood Count 12.3 K/UL (4.8-10.8) H Red Blood Count 2.71 M/UL (4.70-6.10) L Hemoglobin 8.1 G/DL (14.2-18.0) L Hematocrit 25.4 % (42.0-52.0) L Mean Corpuscular Volume 93 FL (80-99) Mean Corpuscular Hemoglobin 29.7 PG (27.0-31.0) Mean Corpuscular Hemoglobin Concent 31.8 G/DL (32.0-36.0) L Red Cell Distribution Width 17.6 % (11.6-14.8) H Platelet Count 430 K/UL (150-450) Mean Platelet Volume 6.1 FL (6.5-10.1) L Neutrophils (%) (Auto) 80.5 % (45.0-75.0) H Lymphocytes (%) (Auto) 10.0 % (20.0-45.0) L Monocytes (%) (Auto) 8.0 % (1.0-10.0) Eosinophils (%) (Auto) 0.5 % (0.0-3.0) Basophils (%) (Auto) 1.0 % (0.0-2.0) Sodium Level 144 MMOL/L (136-145) Potassium Level 3.6 MMOL/L (3.5-5.1) Chloride Level 101 MMOL/L (98-107) Carbon Dioxide Level 29 MMOL/L (21-32) Anion Gap 14 mmol/L (5-15) Blood Urea Nitrogen 68 mg/dL (7-18) H Creatinine 8.4 MG/DL (0.55-1.30) H Estimat Glomerular Filtration Rate 6.4 mL/min (>60) Glucose Level 138 MG/DL (74-106) H Uric Acid 8.7 MG/DL (2.6-7.2) H Calcium Level 9.5 MG/DL (8.5-10.1) Phosphorus Level 4.6 MG/DL (2.5-4.9) Magnesium Level 2.9 MG/DL (1.8-2.4) H Total Bilirubin 0.4 MG/DL (0.2-1.0) Aspartate Amino Transf (AST/SGOT) 25 U/L (15-37) Alanine Aminotransferase (ALT/SGPT) 10 U/L (12-78) L Alkaline Phosphatase 87 U/L (46-116) C-Reactive Protein, Quantitative 19.6 mg/dL (0.00-0.90) H Pro-B-Type Natriuretic Peptide > 82199 pg/mL (0-125) H Total Protein 8.2 G/DL (6.4-8.2) Albumin 2.1 G/DL (3.4-5.0) L Globulin 6.1 g/dL Albumin/Globulin Ratio 0.3 (1.0-2.7) L Current Medications Medications (Trade) Dose Ordered Sig/Anthony Route PRN Reason Start Time Stop Time Status Last Admin Dose Admin Acetaminophen (Tylenol) 650 mg Q4H PRN NG Temp >100.5 06/13/19 11:00 07/13/19 10:59 07/01/19 08:32 Albuterol Sulfate (Proventil MDI) 2 puff Q4HRT INH 06/06/19 23:00 08/30/19 18:59 07/01/19 07:24 Chlorhexidine Gluconate (Michelle-Hex 2%) 1 applic DAILY@1999 TOPIC 06/07/19 20:00 09/05/19 19:59 06/30/19 20:38 Dextrose (Dextrose 50%) 25 ml Q30M PRN IV Hypoglycemia 06/20/19 19:30 8/8/20 19:29 Dextrose (Dextrose 50%) 50 ml Q30M PRN IV Hypoglycemia 06/20/19 19:30 09/18/19 19:29 Docusate Sodium (Colace) 100 mg THREE TIMES A DAY NG 06/07/19 13:00 07/07/19 12:59 07/01/19 08:31 Dopamine HCl/ Dextrose 250 ml @ 0 mls/hr Q24H PRN IV For hypotension 06/13/19 08:15 09/11/19 08:14 Enoxaparin Sodium (Lovenox) 30 mg DAILY SUBQ 06/07/19 09:00 08/27/19 08:59 07/01/19 08:33 Epoetin Aftab (Epoetin Aftab(ESRD on dialysis)) 10,000 unit SUBQ 06/07/19 21:00 08/31/19 20:59 06/30/19 21:24 Fentanyl Citrate 250 ml @ 0 mls/hr Q24H IV 06/24/19 06:00 09/22/19 05:59 06/29/19 23:01 Hydralazine HCl (Apresoline) 10 mg Q4H PRN IV Blood pressure over 160 systol 06/07/19 10:15 09/05/19 10:14 Insulin Aspart (NovoLOG) EVERY 6 HOURS SUBQ 06/21/19 00:00 09/19/19 00:00 07/01/19 06:20 Metoclopramide HCl (Reglan) 5 mg Q8H PRN IVP Nausea & Vomiting 06/18/19 12:00 07/18/19 11:59 06/19/19 00:50 Midodrine (Pro-Amatine) 10 mg THREE TIMES A DAY NG 06/09/19 13:00 09/07/19 12:59 07/01/19 08:32 Norepinephrine Bitartrate 8 mg/ Dextrose 283 ml @ 0 mls/hr Q24H IV 06/23/19 23:00 07/23/19 22:59 06/25/19 14:38 Pantoprazole (Protonix) 40 mg DAILY IVP 06/19/19 09:00 07/19/19 08:59 07/01/19 08:31 Sevelamer Carbonate (Renvela) 1,600 mg Q8HR NG 06/25/19 22:00 09/05/19 12:59 07/01/19 05:42 Tde Leyva MD July 01, 2019 11:00
--- NOTE | 2019-07-01 12:00 | Diagnostic Imaging Report ---
Procedure: XRAY Chest 1v Reason for study: Shortness of breath. Comparison films: 06/29/2019. FINDINGS: Endotracheal tube, NG tube and left PICC line remain in place. There are numerous overlying artifacts. Vascularity is normal. Bilateral alveolar infiltrates again noted slightly improved with improved aeration. Cardiac and mediastinal silhouette are within normal limits. CP angles are sharp. The bony thorax appear unremarkable. IMPRESSION: Slightly improved aeration with slight decrease of alveolar infiltrates.
[2019-07-01] MEDS ORDERED: Vancomycin 1.5gm/NS Premix q24h IVPB SCH (14:00)
[2019-07-01] MEDS: Piperacillin/Tazobactam 2.25 GM in NS 55 ML IVPB SCH ×2 (15:24→21:33)
--- NOTE | 2019-07-01 16:14 | Surgery Progress Note ---
Surgery Progress Note Subjective Procedure Performed Right femoral temporary hemodialysis catheter insertion Symptoms: worse, tolerating diet Objective Last 24 Hour Vital Signs Date Time Temp Pulse Resp B/P (MAP) Pulse Ox O2 Delivery O2 Flow Rate FiO2 07/01/19 15:20 89 26 100 Mechanical Ventilator 30 87 26 30 07/01/19 15:00 81 0 131/77 (95) 100 07/01/19 14:30 85 8 128/74 (92) 100 07/01/19 14:00 91 13 127/69 (88) 100 07/01/19 13:00 98 0 104/59 (74) 100 07/01/19 12:30 102 0 112/65 (81) 99 07/01/19 12:00 Mechanical Ventilator 07/01/19 12:00 30 07/01/19 12:00 108 07/01/19 12:00 98.1 104 20 127/71 (89) 99 07/01/19 12:00 21 112/65 Mechanical Ventilator 07/01/19 11:30 104 0 124/67 (86) 99 07/01/19 11:00 104 30 132/71 (91) 100 07/01/19 11:00 30 154/60 Mechanical Ventilator 07/01/19 10:55 104 26 100 Mechanical Ventilator 30 103 26 30 07/01/19 10:00 32 155/47 Mechanical Ventilator 07/01/19 10:00 98.8 103 5 137/71 (93) 99 07/01/19 09:47 99 07/01/19 09:30 90 11 157/77 (103) 99 07/01/19 09:22 89 21 155/70 (98) 99 07/01/19 09:15 90 26 140/117 (125) 100 07/01/19 09:02 98.9 07/01/19 09:00 100.5 87 27 149/67 (94) 100 07/01/19 08:00 Mechanical Ventilator 07/01/19 08:00 81 26 143/67 (92) 100 07/01/19 08:00 83 07/01/19 08:00 30 07/01/19 07:22 81 26 100 Mechanical Ventilator 30 79 26 30 07/01/19 07:00 81 26 135/65 (88) 100 07/01/19 06:30 80 21 07/01/19 06:30 80 21 120/66 (84) 100 07/01/19 06:00 82 25 142/69 (93) 100 07/01/19 06:00 24 142/69 Mechanical Ventilator 30 07/01/19 05:30 84 25 148/69 (95) 99 07/01/19 05:00 86 17 156/68 (97) 99 07/01/19 04:30 85 15 143/68 (93) 100 07/01/19 04:00 98.9 81 11 143/65 (91) 99 07/01/19 04:00 30 07/01/19 04:00 26 143/65 Mechanical Ventilator 30 07/01/19 04:00 81 07/01/19 04:00 Mechanical Ventilator 07/01/19 03:30 79 24 139/66 (90) 100 07/01/19 03:03 86 22 100 Mechanical Ventilator 30 82 26 30 07/01/19 03:00 79 22 141/72 (95) 99 07/01/19 03:00 22 141/72 Mechanical Ventilator 30 07/01/19 02:30 73 25 105/61 (76) 100 07/01/19 02:00 75 25 108/57 (74) 100 07/01/19 02:00 25 108/57 Mechanical Ventilator 30 07/01/19 01:30 84 26 127/70 (89) 100 07/01/19 01:00 78 26 114/59 (77) 100 07/01/19 01:00 26 114/59 Mechanical Ventilator 30 07/01/19 00:30 82 27 119/61 (80) 100 07/01/19 00:00 99.4 75 23 113/64 (80) 100 07/01/19 00:00 23 113/64 Mechanical Ventilator 30 07/01/19 00:00 Mechanical Ventilator 06/30/19 23:30 75 26 115/60 (78) 99 06/30/19 23:00 27 114/64 Mechanical Ventilator 30 06/30/19 23:00 152/72 06/30/19 23:00 78 27 114/64 (81) 99 06/30/19 22:49 82 25 100 Mechanical Ventilator 30 84 25 30 06/30/19 22:30 82 26 115/63 (80) 99 06/30/19 22:00 18 114/115 Mechanical Ventilator 30 06/30/19 22:00 91 18 144/115 (125) 100 06/30/19 21:30 101.3 85 23 140/73 (95) 99 06/30/19 21:00 85 28 139/66 (90) 99 06/30/19 21:00 27 139/68 Mechanical Ventilator 30 06/30/19 20:30 84 25 132/59 (83) 99 06/30/19 20:00 Mechanical Ventilator 06/30/19 20:00 83 06/30/19 20:00 30 06/30/19 20:00 26 131/58 Mechanical Ventilator 30 06/30/19 20:00 83 26 133/58 (83) 99 06/30/19 19:30 94 27 143/82 (102) 99 06/30/19 19:08 96 31 100 Mechanical Ventilator 30 86 26 30 06/30/19 19:00 26 142/90 Mechanical Ventilator 30 06/30/19 19:00 102 37 142/90 (107) 98 06/30/19 18:30 97 29 151/74 (99) 99 06/30/19 18:00 26 137/66 Mechanical Ventilator 30 06/30/19 18:00 87 26 137/66 (89) 98 06/30/19 17:47 81 26 30 06/30/19 17:30 79 3 129/68 (88) 100 06/30/19 17:00 79 26 129/63 (85) 100 06/30/19 17:00 26 129/63 Mechanical Ventilator 30 06/30/19 16:30 76 22 129/53 (78) 100 I&O Intake and Output 06/30/19 07/01/19 19:00 07:00 Intake Total 600 ml 620 ml Output Total 55 ml 25 ml Balance 545 ml 595 ml Free Water 180 ml IV Total 50 ml 40 ml Tube Feeding 350 ml 280 ml Other 200 ml 120 ml Output Urine Total 55 ml 25 ml # Bowel Movements 1 2 Dressing: saturated Wound: other Drains: other Cardiovascular: RSR Respiratory: decreased breath sounds Abdomen: soft, non-tender, decreased bowel sounds Extremities: edema, no tenderness, no cyanosis Laboratory Tests Test 07/01/19 03:50 White Blood Count 12.3 K/UL (4.8-10.8) H Red Blood Count 2.71 M/UL (4.70-6.10) L Hemoglobin 8.1 G/DL (14.2-18.0) L Hematocrit 25.4 % (42.0-52.0) L Mean Corpuscular Volume 93 FL (80-99) Mean Corpuscular Hemoglobin 29.7 PG (27.0-31.0) Mean Corpuscular Hemoglobin Concent 31.8 G/DL (32.0-36.0) L Red Cell Distribution Width 17.6 % (11.6-14.8) H Platelet Count 430 K/UL (150-450) Mean Platelet Volume 6.1 FL (6.5-10.1) L Neutrophils (%) (Auto) 80.5 % (45.0-75.0) H Lymphocytes (%) (Auto) 10.0 % (20.0-45.0) L Monocytes (%) (Auto) 8.0 % (1.0-10.0) Eosinophils (%) (Auto) 0.5 % (0.0-3.0) Basophils (%) (Auto) 1.0 % (0.0-2.0) Sodium Level 144 MMOL/L (136-145) Potassium Level 3.6 MMOL/L (3.5-5.1) Chloride Level 101 MMOL/L (98-107) Carbon Dioxide Level 29 MMOL/L (21-32) Anion Gap 14 mmol/L (5-15) Blood Urea Nitrogen 68 mg/dL (7-18) H Creatinine 8.4 MG/DL (0.55-1.30) H Estimat Glomerular Filtration Rate 6.4 mL/min (>60) Glucose Level 138 MG/DL (74-106) H Uric Acid 8.7 MG/DL (2.6-7.2) H Calcium Level 9.5 MG/DL (8.5-10.1) Phosphorus Level 4.6 MG/DL (2.5-4.9) Magnesium Level 2.9 MG/DL (1.8-2.4) H Total Bilirubin 0.4 MG/DL (0.2-1.0) Aspartate Amino Transf (AST/SGOT) 25 U/L (15-37) Alanine Aminotransferase (ALT/SGPT) 10 U/L (12-78) L Alkaline Phosphatase 87 U/L (46-116) C-Reactive Protein, Quantitative 19.6 mg/dL (0.00-0.90) H Pro-B-Type Natriuretic Peptide > 92801 pg/mL (0-125) H Total Protein 8.2 G/DL (6.4-8.2) Albumin 2.1 G/DL (3.4-5.0) L Globulin 6.1 g/dL Albumin/Globulin Ratio 0.3 (1.0-2.7) L Plan Problems: (1) Suspected COVID-19 virus infection (2) HTN (hypertension) (3) CASSANDRA (acute kidney injury) Assessment & Plan: Needs urgent HD needs access patient okay and consented see note will follow with recs new line placed discussed with team and nephrology HD line functional when checked has TPA now please use appropriately Cathflo used again this flow during dialysis on 430 was low. Will monitor may need line change 5/ plan for HD as per renal may need to take fluid off with HD edema anasarca dressings saturated and changed will monitor (4) Anemia in chronic kidney disease (CKD) (5) Anemia (6) Renal failure (7) Suspected COVID-19 virus infection Assessment & Plan: Pt deconditioned and despite all skin preventions Pt noted to have developed several pressure injuries. . Stable dry eschar noted to clefts of R and L ears. No erythema noted . DTPI noted to L trochanter. Base of injury is maroon in colour with marginal erythema along borders. Partially opened DTPI Sacrum, R and L Buttocks. Base of wound is maroon with two small open wounds L sacrum and L buttocks. Pt has an APM/MOMO Mattress overlay and is being positioned with pillows as per tolerance and within protocols. worsening despite medical efforts will cont to provide therapy Tx.Plan: Apply Cavilon Skin Barrier to both ears Daily and prn. Apply Moisture Barrier Paste to Sacrum,R and L Buttocks. Cover with Optifoam drsgs. Change every 3 days and PRN. Apply Cavilon Skin Barrier to R and L trochanter. Cover each site with Optifoam drsgs.Change every 7 days and PRN. Apply Cavilon Skin Barrier to both heels. Cover each heel with Optifoam drsg. Change every 7 days and prn. Off-load heels with pillow. Reposition at least every 2hours or as tolerated. APM/MOMO Mattress overlay. (8) COVID-19 Assessment & Plan: COVID + c diff negative febrile leukocytosis renal insufficiency see above cont resp care Rx as per ID worsening on vent support now cxr noted on pressors prognosis guarded repeat covid ++ weaning vent and pressors off slowly showing improvement Yaniv Mast July 01, 2019 16:14
--- NOTE | 2019-07-01 16:30 | Cardiac Electrophysiology PN ---
Assessment/Plan Assessment/Plan 1. Elevated troponin. Troponin on May 27 and May 30 were negative, on June 01, it was elevated at 0.074. Repeat 0.05. Due to renal failure. On Aspirin. EF 60%. 2. S/P Septic shock. Off Levo 3. ESRD, on hemodialysis per Dr. Cole. 4. COVID-19 positive pneumonia. On the Vent with 30% Fio2. Fu by Dr. Mckeon. Failed weaning May need tracheostomy 5. MRSA carrier. 6. COPD. 7. Anemia. 8. Depression. DW RN Subjective Subjective Is Covid positive x 3 in isolation in ICU, intubated on 30% Fio2, PEEP 5. Failed weaning. Off pressors. Objective Last 24 Hour Vital Signs Date Time Temp Pulse Resp B/P (MAP) Pulse Ox O2 Delivery O2 Flow Rate FiO2 07/01/19 16:00 85 24 131/70 (90) 100 07/01/19 16:00 87 07/01/19 15:20 89 26 100 Mechanical Ventilator 30 87 26 30 07/01/19 15:00 81 0 131/77 (95) 100 07/01/19 14:30 85 8 128/74 (92) 100 07/01/19 14:00 91 13 127/69 (88) 100 07/01/19 13:00 98 0 104/59 (74) 100 07/01/19 12:30 102 0 112/65 (81) 99 07/01/19 12:00 Mechanical Ventilator 07/01/19 12:00 30 07/01/19 12:00 108 07/01/19 12:00 98.1 104 20 127/71 (89) 99 07/01/19 12:00 21 112/65 Mechanical Ventilator 07/01/19 11:30 104 0 124/67 (86) 99 07/01/19 11:00 104 30 132/71 (91) 100 07/01/19 11:00 30 154/60 Mechanical Ventilator 07/01/19 10:55 104 26 100 Mechanical Ventilator 30 103 26 30 07/01/19 10:00 32 155/47 Mechanical Ventilator 07/01/19 10:00 98.8 103 5 137/71 (93) 99 07/01/19 09:47 99 07/01/19 09:30 90 11 157/77 (103) 99 5/21/20 09:22 89 21 155/70 (98) 99 07/01/19 09:15 90 26 140/117 (125) 100 07/01/19 09:02 98.9 07/01/19 09:00 100.5 87 27 149/67 (94) 100 07/01/19 08:00 Mechanical Ventilator 07/01/19 08:00 81 26 143/67 (92) 100 07/01/19 08:00 83 07/01/19 08:00 30 07/01/19 07:22 81 26 100 Mechanical Ventilator 30 79 26 30 07/01/19 07:00 81 26 135/65 (88) 100 07/01/19 06:30 80 21 07/01/19 06:30 80 21 120/66 (84) 100 07/01/19 06:00 82 25 142/69 (93) 100 07/01/19 06:00 24 142/69 Mechanical Ventilator 30 07/01/19 05:30 84 25 148/69 (95) 99 07/01/19 05:00 86 17 156/68 (97) 99 07/01/19 04:30 85 15 143/68 (93) 100 07/01/19 04:00 98.9 81 11 143/65 (91) 99 07/01/19 04:00 30 07/01/19 04:00 26 143/65 Mechanical Ventilator 30 07/01/19 04:00 81 07/01/19 04:00 Mechanical Ventilator 07/01/19 03:30 79 24 139/66 (90) 100 07/01/19 03:03 86 22 100 Mechanical Ventilator 30 82 26 30 07/01/19 03:00 79 22 141/72 (95) 99 07/01/19 03:00 22 141/72 Mechanical Ventilator 30 07/01/19 02:30 73 25 105/61 (76) 100 07/01/19 02:00 75 25 108/57 (74) 100 07/01/19 02:00 25 108/57 Mechanical Ventilator 30 07/01/19 01:30 84 26 127/70 (89) 100 07/01/19 01:00 78 26 114/59 (77) 100 07/01/19 01:00 26 114/59 Mechanical Ventilator 30 07/01/19 00:30 82 27 119/61 (80) 100 07/01/19 00:00 99.4 75 23 113/64 (80) 100 521/20 00:00 23 113/64 Mechanical Ventilator 30 06/30/20 00:00 Mechanical Ventilator 520/20 23:30 75 26 115/60 (78) 99 5/20/20 23:00 27 114/64 Mechanical Ventilator 30 520/20 23:00 152/72 5/20/20 23:00 78 27 114/64 (81) 99 20/20 22:49 82 25 100 Mechanical Ventilator 30 84 25 30 520/20 22:30 82 26 115/63 (80) 99 5/20/20 22:00 18 114/115 Mechanical Ventilator 30 520/20 22:00 91 18 144/115 (125) 100 520/20 21:30 101.3 85 23 140/73 (95) 99 520/20 21:00 85 28 139/66 (90) 99 20/20 21:00 27 139/68 Mechanical Ventilator 30 20 20:30 84 25 132/59 (83) 99 20/20 20:00 Mechanical Ventilator 520/20 20:00 83 5/20/20 20:00 30 520/20 20:00 26 131/58 Mechanical Ventilator 30 5/20 20:00 83 26 133/58 (83) 99 20/20 19:30 94 27 143/82 (102) 99 520/20 19:08 96 31 100 Mechanical Ventilator 30 86 26 30 520/20 19:00 26 142/90 Mechanical Ventilator 30 06/29/20 19:00 102 37 142/90 (107) 98 5/20/20 18:30 97 29 151/74 (99) 99 5/20/20 18:00 26 137/66 Mechanical Ventilator 30 520/20 18:00 87 26 137/66 (89) 98 5/20/20 17:47 81 26 30 5/20/20 17:30 79 3 129/68 (88) 100 5/20/20 17:00 79 26 129/63 (85) 100 5/20/20 17:00 26 129/63 Mechanical Ventilator 30 20/20 16:30 76 22 129/53 (78) 100 Intake and Output 06/29/20 5/20 19:00 07:00 Intake Total 600 ml 620 ml Output Total 55 ml 25 ml Balance 545 ml 595 ml Free Water 180 ml IV Total 50 ml 40 ml Tube Feeding 350 ml 280 ml Other 200 ml 120 ml Output Urine Total 55 ml 25 ml # Bowel Movements 1 2 Laboratory Tests Test 07/01/19 03:50 White Blood Count 12.3 K/UL (4.8-10.8) H Red Blood Count 2.71 M/UL (4.70-6.10) L Hemoglobin 8.1 G/DL (14.2-18.0) L Hematocrit 25.4 % (42.0-52.0) L Mean Corpuscular Volume 93 FL (80-99) Mean Corpuscular Hemoglobin 29.7 PG (27.0-31.0) Mean Corpuscular Hemoglobin Concent 31.8 G/DL (32.0-36.0) L Red Cell Distribution Width 17.6 % (11.6-14.8) H Platelet Count 430 K/UL (150-450) Mean Platelet Volume 6.1 FL (6.5-10.1) L Neutrophils (%) (Auto) 80.5 % (45.0-75.0) H Lymphocytes (%) (Auto) 10.0 % (20.0-45.0) L Monocytes (%) (Auto) 8.0 % (1.0-10.0) Eosinophils (%) (Auto) 0.5 % (0.0-3.0) Basophils (%) (Auto) 1.0 % (0.0-2.0) Sodium Level 144 MMOL/L (136-145) Potassium Level 3.6 MMOL/L (3.5-5.1) Chloride Level 101 MMOL/L (98-107) Carbon Dioxide Level 29 MMOL/L (21-32) Anion Gap 14 mmol/L (5-15) Blood Urea Nitrogen 68 mg/dL (7-18) H Creatinine 8.4 MG/DL (0.55-1.30) H Estimat Glomerular Filtration Rate 6.4 mL/min (>60) Glucose Level 138 MG/DL (74-106) H Uric Acid 8.7 MG/DL (2.6-7.2) H Calcium Level 9.5 MG/DL (8.5-10.1) Phosphorus Level 4.6 MG/DL (2.5-4.9) Magnesium Level 2.9 MG/DL (1.8-2.4) H Total Bilirubin 0.4 MG/DL (0.2-1.0) Aspartate Amino Transf (AST/SGOT) 25 U/L (15-37) Alanine Aminotransferase (ALT/SGPT) 10 U/L (12-78) L Alkaline Phosphatase 87 U/L (46-116) C-Reactive Protein, Quantitative 19.6 mg/dL (0.00-0.90) H Pro-B-Type Natriuretic Peptide > 69102 pg/mL (0-125) H Total Protein 8.2 G/DL (6.4-8.2) Albumin 2.1 G/DL (3.4-5.0) L Globulin 6.1 g/dL Albumin/Globulin Ratio 0.3 (1.0-2.7) L Microbiology Date/Time Source Procedure Growth Status 06/28/19 16:50 Nasopharynx Coronavirus COVID-19 PCR ([facility]) - Final Complete Objective HEAD AND NECK: No JVD. Orally intubated LUNGS: Decreased breath sounds. CARDIOVASCULAR: Regular S1 and S2. Tachycardic. ABDOMEN: Soft. EXTREMITIES: No pitting edema. New Left FV Gio Engle MD July 01, 2019 16:30
--- NOTE | 2019-07-01 18:07 | General Progress Note ---
Assessment/Plan Problem List: (1) Anemia ICD Codes: D64.9 - Anemia, unspecified SNOMED: 788137550 (2) Renal failure ICD Codes: N19 - Unspecified kidney failure SNOMED: 59294829 (3) Suspected COVID-19 virus infection ICD Codes: R68.89 - Other general symptoms and signs SNOMED: 712982597 (4) HTN (hypertension) ICD Codes: I10 - Essential (primary) hypertension SNOMED: 84282284 (5) CASSANDRA (acute kidney injury) ICD Codes: N17.9 - Acute kidney failure, unspecified SNOMED: 0276652, 90650250 (6) Anemia in chronic kidney disease (CKD) ICD Codes: N18.9 - Chronic kidney disease, unspecified; D63.1 - Anemia in chronic kidney disease SNOMED: 647197926 (7) Suspected COVID-19 virus infection ICD Codes: R68.89 - Other general symptoms and signs SNOMED: 478066143 Status: unchanged Assessment/Plan: leukocytosis pna covid no change not improving poor prognosis check lytes check h/h Subjective ROS Limited/Unobtainable: Yes Allergies: Coded Allergies: No Known Allergies (Unverified , 05/28/19) Objective Last 24 Hour Vital Signs Date Time Temp Pulse Resp B/P (MAP) Pulse Ox O2 Delivery O2 Flow Rate FiO2 07/01/19 17:00 93 5 135/63 (87) 100 07/01/19 16:00 85 24 131/70 (90) 100 07/01/19 16:00 87 07/01/19 16:00 30 07/01/19 16:00 Mechanical Ventilator 07/01/19 15:20 89 26 100 Mechanical Ventilator 30 87 26 30 07/01/19 15:00 81 0 131/77 (95) 100 07/01/19 14:30 85 8 128/74 (92) 100 07/01/19 14:00 91 13 127/69 (88) 100 07/01/19 13:00 98 0 104/59 (74) 100 07/01/19 12:30 102 0 112/65 (81) 99 07/01/19 12:00 Mechanical Ventilator 07/01/19 12:00 30 07/01/19 12:00 108 07/01/19 12:00 98.1 104 20 127/71 (89) 99 07/01/19 12:00 21 112/65 Mechanical Ventilator 07/01/19 11:30 104 0 124/67 (86) 99 07/01/19 11:00 104 30 132/71 (91) 100 07/01/19 11:00 30 154/60 Mechanical Ventilator 07/01/19 10:55 104 26 100 Mechanical Ventilator 30 103 26 30 07/01/19 10:00 32 155/47 Mechanical Ventilator 07/01/19 10:00 98.8 103 5 137/71 (93) 99 07/01/19 09:47 99 07/01/19 09:30 90 11 157/77 (103) 99 07/01/19 09:22 89 21 155/70 (98) 99 07/01/19 09:15 90 26 140/117 (125) 100 07/01/19 09:02 98.9 07/01/19 09:00 100.5 87 27 149/67 (94) 100 07/01/19 08:00 Mechanical Ventilator 07/01/19 08:00 81 26 143/67 (92) 100 07/01/19 08:00 83 07/01/19 08:00 30 07/01/19 07:22 81 26 100 Mechanical Ventilator 30 79 26 30 07/01/19 07:00 81 26 135/65 (88) 100 07/01/19 06:30 80 21 07/01/19 06:30 80 21 120/66 (84) 100 07/01/19 06:00 82 25 142/69 (93) 100 07/01/19 06:00 24 142/69 Mechanical Ventilator 30 07/01/19 05:30 84 25 148/69 (95) 99 07/01/19 05:00 86 17 156/68 (97) 99 07/01/19 04:30 85 15 143/68 (93) 100 07/01/19 04:00 98.9 81 11 143/65 (91) 99 07/01/19 04:00 30 07/01/19 04:00 26 143/65 Mechanical Ventilator 30 07/01/19 04:00 81 07/01/19 04:00 Mechanical Ventilator 07/01/19 03:30 79 24 139/66 (90) 100 07/01/19 03:03 86 22 100 Mechanical Ventilator 30 82 26 30 07/01/19 03:00 79 22 141/72 (95) 99 5/21/20 03:00 22 141/72 Mechanical Ventilator 30 07/01/19 02:30 73 25 105/61 (76) 100 07/01/19 02:00 75 25 108/57 (74) 100 07/01/19 02:00 25 108/57 Mechanical Ventilator 30 07/01/19 01:30 84 26 127/70 (89) 100 07/01/19 01:00 78 26 114/59 (77) 100 07/01/19 01:00 26 114/59 Mechanical Ventilator 30 07/01/19 00:30 82 27 119/61 (80) 100 07/01/19 00:00 99.4 75 23 113/64 (80) 100 07/01/19 00:00 23 113/64 Mechanical Ventilator 30 07/01/19 00:00 Mechanical Ventilator 06/30/19 23:30 75 26 115/60 (78) 99 06/30/19 23:00 27 114/64 Mechanical Ventilator 30 06/30/19 23:00 152/72 06/30/19 23:00 78 27 114/64 (81) 99 06/30/19 22:49 82 25 100 Mechanical Ventilator 30 84 25 30 06/30/19 22:30 82 26 115/63 (80) 99 06/30/19 22:00 18 114/115 Mechanical Ventilator 30 06/30/19 22:00 91 18 144/115 (125) 100 06/30/19 21:30 101.3 85 23 140/73 (95) 99 20 21:00 85 28 139/66 (90) 99 06/30/19 21:00 27 139/68 Mechanical Ventilator 30 06/30/19 20:30 84 25 132/59 (83) 99 20 20:00 Mechanical Ventilator 06/30/19 20:00 83 2020 20:00 30 20 20:00 26 131/58 Mechanical Ventilator 30 06/30/19 20:00 83 26 133/58 (83) 99 20 19:30 94 27 143/82 (102) 99 20 19:08 96 31 100 Mechanical Ventilator 30 86 26 30 06/30/19 19:00 26 142/90 Mechanical Ventilator 30 06/30/19 19:00 102 37 142/90 (107) 98 06/30/19 18:30 97 29 151/74 (99) 99 Intake and Output 06/30/19 07/01/19 19:00 07:00 Intake Total 600 ml 620 ml Output Total 55 ml 25 ml Balance 545 ml 595 ml Free Water 180 ml IV Total 50 ml 40 ml Tube Feeding 350 ml 280 ml Other 200 ml 120 ml Output Urine Total 55 ml 25 ml # Bowel Movements 1 2 Laboratory Tests 07/01/19 03:50: White Blood Count 12.3H, Red Blood Count 2.71L, Hemoglobin 8.1L, Hematocrit 25.4L, Mean Corpuscular Volume 93, Mean Corpuscular Hemoglobin 29.7, Mean Corpuscular Hemoglobin Concent 31.8L, Red Cell Distribution Width 17.6H, Platelet Count 430, Mean Platelet Volume 6.1L, Neutrophils (%) (Auto) 80.5H, Lymphocytes (%) (Auto) 10.0L, Monocytes (%) (Auto) 8.0, Eosinophils (%) (Auto) 0.5, Basophils (%) (Auto) 1.0, Sodium Level 144, Potassium Level 3.6, Chloride Level 101, Carbon Dioxide Level 29, Anion Gap 14, Blood Urea Nitrogen 68H, Creatinine 8.4H, Estimat Glomerular Filtration Rate 6.4, Glucose Level 138H, Uric Acid 8.7H, Calcium Level 9.5, Phosphorus Level 4.6, Magnesium Level 2.9H, Total Bilirubin 0.4, Aspartate Amino Transf (AST/SGOT) 25, Alanine Aminotransferase (ALT/SGPT) 10L, Alkaline Phosphatase 87, C-Reactive Protein, Quantitative 19.6H, Pro-B-Type Natriuretic Peptide > 88217G, Total Protein 8.2, Albumin 2.1L, Globulin 6.1, Albumin/Globulin Ratio 0.3L Height (Feet): 6 Height (Inches): 1.00 Weight (Pounds): 213 Karishma Mulligan MD July 01, 2019 18:07
[2019-07-01] MEDS: Dyna-Hex 2% Top Sol 2oz TOPIC SCH (20:27)
[2019-07-01] MEDS: NOREPINEPHRINE BITARTRATE IV SCH ×3 (23:00)
[2019-07-01] MEDS: D5W IV SCH ×3 (23:00)
[2019-07-02] VITALS (34 sets, daily range): BP systolic 85–156; BP diastolic 38–105
--- NOTE | 2019-07-02 | Pulmonolgy Critical Care Note ---
Critical Care - Asmt/Plan Assessment/Plan: Pulmonary CCM Progress Note HPI: Patient is a 68 year old man, senior living resident, admitted c/o shortness of breath, cough, noted to have Covid 19 Pneumonia, Respiratory Failure S/p intubation, CXR improving infiltrates ETT adjusted Septic Shock, pressors off Preserved EF FIO2 40%-50%, P5, adequate O2 sats, remains on ACVC, did not tolerate weaning, less sedated, minimal secretions HD per Renal Hyponatremia stable Anemic ID following See earlier on 07/01/2019 Past Medical History: COPD, CKD, Hypertension, Anemia Hypotension requiring pressors, in ICU Persistently elevated WCC Allergies: No Known Allergies Improving Pulmonary Status on HD Physical Exam Vital Signs Noted Sedated on ventilator WDWN, no distress HEENT: NCAT,moist mm Chest: Occasional rhonchi Heart: HS1, HS2, RRR Abdomen: SNTND, no masses Extremities: Well perfused, no edema [employer]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, 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, 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 Impression: COVID-19 virus infection Pneumonia Respiratory failure on ventilator Volume overload improving - on HD Hypotension on pressors Cardiomegaly Lymphopenia Elevated AST COPD Chronic Kidney Disease - HD H/o Hypertension Worsening anemia Plan: Antibiotics per ID HD Pressors PRN ACVC - wean as tolerated once pressors reduced/off 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 Monitor cultures/viral studies PPX Hemodialysis per Renal Psychiatry following [facility] - [facility] requested for when available, [facility] - not available as yet Laboratory Tests Noted: CXR: Hypoventilatory exam, interstitial changes, cardiomegaly, improving infiltrates Subjective ROS Limited/Unobtainable: No Constitutional: Denies: fever Respiratory: Reports: dry cough, shortness of breath Gastrointestinal/Abdominal: Reports: diarrhea, other - colace was stopped Psychiatric: Reports: other - refuses labs Allergies: Coded Allergies: No Known Allergies (Unverified , 05/28/19) All Systems: reviewed and negative except above Labs noted Critical Care - Objective Last 24 Hour Vital Signs Date Time Temp Pulse Resp B/P (MAP) Pulse Ox O2 Delivery O2 Flow Rate FiO2 07/01/19 23:05 89 26 100 Mechanical Ventilator 30 101 30 30 07/01/19 23:00 127/67 07/01/19 23:00 90 26 127/67 (87) 100 07/01/19 22:00 90 8 155/74 (101) 99 07/01/19 22:00 24 155/74 Mechanical Ventilator 30 07/01/19 21:00 87 13 155/75 (101) 100 07/01/19 21:00 26 155/75 Mechanical Ventilator 30 07/01/19 20:00 99.8 85 26 136/65 (88) 100 07/01/19 20:00 26 136/65 Mechanical Ventilator 30 07/01/19 20:00 30 07/01/19 20:00 70 07/01/19 20:00 Mechanical Ventilator 07/01/19 19:37 91 27 100 Mechanical Ventilator 30 87 26 30 07/01/19 19:00 84 0 138/72 (94) 99 07/01/19 18:00 95 22 143/75 (97) 100 07/01/19 17:00 93 5 135/63 (87) 100 07/01/19 16:00 85 24 131/70 (90) 100 07/01/19 16:00 87 07/01/19 16:00 30 07/01/19 16:00 Mechanical Ventilator 07/01/19 15:20 89 26 100 Mechanical Ventilator 30 87 26 30 07/01/19 15:00 81 0 131/77 (95) 100 07/01/19 14:30 85 8 128/74 (92) 100 07/01/19 14:00 91 13 127/69 (88) 100 07/01/19 13:00 98 0 104/59 (74) 100 07/01/19 12:30 102 0 112/65 (81) 99 07/01/19 12:00 Mechanical Ventilator 07/01/19 12:00 30 07/01/19 12:00 108 07/01/19 12:00 98.1 104 20 127/71 (89) 99 07/01/19 12:00 21 112/65 Mechanical Ventilator 07/01/19 11:30 104 0 124/67 (86) 99 07/01/19 11:00 104 30 132/71 (91) 100 07/01/19 11:00 30 154/60 Mechanical Ventilator 07/01/19 10:55 104 26 100 Mechanical Ventilator 30 103 26 30 07/01/19 10:00 32 155/47 Mechanical Ventilator 07/01/19 10:00 98.8 103 5 137/71 (93) 99 07/01/19 09:47 99 07/01/19 09:30 90 11 157/77 (103) 99 07/01/19 09:22 89 21 155/70 (98) 99 07/01/19 09:15 90 26 140/117 (125) 100 07/01/19 09:02 98.9 07/01/19 09:00 100.5 87 27 149/67 (94) 100 07/01/19 08:00 Mechanical Ventilator 07/01/19 08:00 81 26 143/67 (92) 100 07/01/19 08:00 83 07/01/19 08:00 30 07/01/19 07:22 81 26 100 Mechanical Ventilator 30 79 26 30 07/01/19 07:00 81 26 135/65 (88) 100 07/01/19 06:30 80 21 07/01/19 06:30 80 21 120/66 (84) 100 07/01/19 06:00 82 25 142/69 (93) 100 07/01/19 06:00 24 142/69 Mechanical Ventilator 30 07/01/19 05:30 84 25 148/69 (95) 99 07/01/19 05:00 86 17 156/68 (97) 99 07/01/19 04:30 85 15 143/68 (93) 100 07/01/19 04:00 98.9 81 11 143/65 (91) 99 07/01/19 04:00 30 07/01/19 04:00 26 143/65 Mechanical Ventilator 30 07/01/19 04:00 81 07/01/19 04:00 Mechanical Ventilator 07/01/19 03:30 79 24 139/66 (90) 100 07/01/19 03:03 86 22 100 Mechanical Ventilator 30 82 26 30 07/01/19 03:00 79 22 141/72 (95) 99 07/01/19 03:00 22 141/72 Mechanical Ventilator 30 07/01/19 02:30 73 25 105/61 (76) 100 07/01/19 02:00 75 25 108/57 (74) 100 07/01/19 02:00 25 108/57 Mechanical Ventilator 30 07/01/19 01:30 84 26 127/70 (89) 100 07/01/19 01:00 78 26 114/59 (77) 100 07/01/19 01:00 26 114/59 Mechanical Ventilator 30 07/01/19 00:30 82 27 119/61 (80) 100 07/01/19 00:00 99.4 75 23 113/64 (80) 100 07/01/19 00:00 23 113/64 Mechanical Ventilator 30 07/01/19 00:00 Mechanical Ventilator Accucheck: 127 Critical Care - Subjective ROS Limited/Unobtainable: No Condition: stable FI02: 30 Vent Support Breath Rate: 26 Vent Support Mode: AC Vent Tidal Volume: 500 Sputum Amount: Scant PEEP: 5.0 PIP: 22 Tube Feeding Amount: 35 I&O: Intake and Output 06/30/19 07/01/19 19:00 07:00 Intake Total 600 ml 620 ml Output Total 55 ml 25 ml Balance 545 ml 595 ml Free Water 180 ml IV Total 50 ml 40 ml Tube Feeding 350 ml 280 ml Other 200 ml 120 ml Output Urine Total 55 ml 25 ml # Bowel Movements 1 2 ET-Tube: 7.5 ET Position: 26 Arturo Mckeon MD July 02, 2019 00:00
[2019-07-02] MEDS: NovoLOG Insulin Flexpen SUBQ SCH ×4 (00:04→18:00)
[2019-07-02] MEDS: Albuterol 90mcg Inhaler 8gm INH SCH ×6 (03:04→22:50)
[2019-07-02 05:29] LABS: HEMATOCRIT 25.1 % (42.0-52.0); HEMOGLOBIN 7.9 G/DL (14.2-18.0); MEAN CORPUSCULAR VOLUME 93 FL (80-99); PLATELET COUNT 470 K/UL (150-450); RED CELL DISTRIBUTION WIDTH 16.7 % (11.6-14.8); WHITE BLOOD COUNT 13.3 K/UL (4.8-10.8)
[2019-07-02 05:53] LABS: ALANINE AMINOTRANSFERASE 10 U/L (12-78); ALBUMIN/GLOBULIN RATIO 0.3 (1.0-2.7); ALKALINE PHOSPHATASE 79 U/L (46-116); ANION GAP 16 mmol/L (5-15); ASPARTATE AMINO TRANSFERASE 25 U/L (15-37); BILIRUBIN,TOTAL 0.4 MG/DL (0.2-1.0); BLOOD UREA NITROGEN 78 mg/dL (7-18); CALCIUM 8.7 MG/DL (8.5-10.1); CARBON DIOXIDE 28 MMOL/L (21-32); CHLORIDE 104 MMOL/L (98-107); CREATININE 9.5 MG/DL (0.55-1.30); SODIUM 148 MMOL/L (136-145)
[2019-07-02] MEDS: fentaNYL 2500mcg/NS 250ml IV SCH ×2 (06:00→11:50)
[2019-07-02 06:18] LABS: PHOSPHORUS 5.6 MG/DL (2.5-4.9)
[2019-07-02] MEDS: Piperacillin/Tazobactam 2.25 GM in NS 55 ML IVPB SCH ×3 (06:41→21:48)
[2019-07-02] MEDS: Renvela 800mg Pkt NG SCH ×3 (06:41→21:48)
[2019-07-02] MEDS: Enoxaparin 30mg Inj SUBQ SCH (09:00)
[2019-07-02] MEDS: Midodrine 10mg tab NG SCH ×3 (09:32→17:06)
[2019-07-02] MEDS: Docusate 100mg/10ml Liq NG SCH ×3 (09:32→17:06)
[2019-07-02] MEDS: Pantoprazole Inj IVP SCH (09:32)
--- NOTE | 2019-07-02 09:53 | General Progress Note ---
Assessment/Plan Status: unchanged Assessment/Plan: 1. Diabetes. 2. Hypertension. 3. Coronary artery disease. 4. COPD. 5. Psychiatric disorder with schizophrenia. 6. History of hepatitis C. 7. HLP. 8. Chronic kidney disease, now with acute renal failure. 9. Anemia. 10. Hypothyroidism. 11. Spinal stenosis. 12. Constipation. 13. GERD. 14. COVID positive HD per nephrology weaning, pending extubation d/w the nurse recent labs and notes reviewed stable H&H NGTF at 40 cc will fu Subjective ROS Limited/Unobtainable: No Allergies: Coded Allergies: No Known Allergies (Unverified , 05/28/19) Objective Last 24 Hour Vital Signs Date Time Temp Pulse Resp B/P (MAP) Pulse Ox O2 Delivery O2 Flow Rate FiO2 07/02/19 08:30 75 0 136/76 (96) 100 07/02/19 08:00 30 07/02/19 08:00 Mechanical Ventilator 07/02/19 08:00 81 6 146/73 (97) 100 07/02/19 07:19 99 07/02/19 07:19 75 26 99 Mechanical Ventilator 30 86 26 30 07/02/19 07:00 77 118/69 (85) 07/02/19 06:30 82 25 07/02/19 06:00 26 135/69 Mechanical Ventilator 30 07/02/19 06:00 82 24 121/78 (92) 99 07/02/19 05:00 86 26 114/68 (83) 100 07/02/19 05:00 26 114/68 Mechanical Ventilator 30 07/02/19 04:14 85 07/02/19 04:14 30 07/02/19 04:00 Mechanical Ventilator 07/02/19 04:00 100.0 89 26 138/97 (111) 99 07/02/19 04:00 26 138/97 Mechanical Ventilator 30 07/02/19 03:04 87 27 100 Mechanical Ventilator 30 88 26 30 07/02/19 03:00 86 26 156/90 (112) 99 07/02/19 03:00 26 156/90 Mechanical Ventilator 30 07/02/19 02:00 81 26 137/71 (93) 99 07/02/19 02:00 26 137/71 Mechanical Ventilator 30 07/02/19 01:00 93 36 152/71 (98) 99 07/02/19 01:00 36 152/71 Mechanical Ventilator 30 07/02/19 00:00 100.3 85 27 147/79 (101) 100 07/02/19 00:00 26 147/79 Mechanical Ventilator 30 07/02/19 00:00 Mechanical Ventilator 07/01/19 23:05 89 26 100 Mechanical Ventilator 30 101 30 30 07/01/19 23:00 25 127/67 Mechanical Ventilator 30 07/01/19 23:00 127/67 07/01/19 23:00 90 26 127/67 (87) 100 07/01/19 22:00 90 8 155/74 (101) 99 07/01/19 22:00 24 155/74 Mechanical Ventilator 30 07/01/19 21:00 87 13 155/75 (101) 100 07/01/19 21:00 26 155/75 Mechanical Ventilator 30 07/01/19 20:00 99.8 85 26 136/65 (88) 100 07/01/19 20:00 26 136/65 Mechanical Ventilator 30 07/01/19 20:00 30 07/01/19 20:00 70 07/01/19 20:00 Mechanical Ventilator 07/01/19 19:37 91 27 100 Mechanical Ventilator 30 87 26 30 07/01/19 19:00 84 0 138/72 (94) 99 07/01/19 18:00 95 22 143/75 (97) 100 07/01/19 17:00 93 5 135/63 (87) 100 07/01/19 16:00 85 24 131/70 (90) 100 07/01/19 16:00 87 07/01/19 16:00 30 07/01/19 16:00 Mechanical Ventilator 07/01/19 15:20 89 26 100 Mechanical Ventilator 30 87 26 30 07/01/19 15:00 81 0 131/77 (95) 100 07/01/19 14:30 85 8 128/74 (92) 100 07/01/19 14:00 91 13 127/69 (88) 100 07/01/19 13:00 98 0 104/59 (74) 100 07/01/19 12:30 102 0 112/65 (81) 99 07/01/19 12:00 Mechanical Ventilator 07/01/19 12:00 30 07/01/19 12:00 108 07/01/19 12:00 98.1 104 20 127/71 (89) 99 5/21/20 12:00 21 112/65 Mechanical Ventilator 07/01/19 11:30 104 0 124/67 (86) 99 07/01/19 11:00 104 30 132/71 (91) 100 07/01/19 11:00 30 154/60 Mechanical Ventilator 07/01/19 10:55 104 26 100 Mechanical Ventilator 30 103 26 30 07/01/19 10:00 32 155/47 Mechanical Ventilator 07/01/19 10:00 98.8 103 5 137/71 (93) 99 Intake and Output 07/01/19 07/02/19 19:00 07:00 Intake Total 540 ml 440 ml Output Total 30 ml Balance 510 ml 440 ml IV Total 160 ml 160 ml Tube Feeding 350 ml 280 ml Other 30 ml Output Urine Total 30 ml # Voids 80 # Bowel Movements 3 1 Laboratory Tests 07/02/19 04:00: White Blood Count 13.3H, Red Blood Count 2.70L, Hemoglobin 7.9L, Hematocrit 25.1L, Mean Corpuscular Volume 93, Mean Corpuscular Hemoglobin 29.3, Mean Corpuscular Hemoglobin Concent 31.5L, Red Cell Distribution Width 16.7H, Platelet Count 470H, Mean Platelet Volume 6.1L, Neutrophils (%) (Auto) , Lymphocytes (%) (Auto) , Monocytes (%) (Auto) , Eosinophils (%) (Auto) , Basophils (%) (Auto) , Differential Total Cells Counted 100, Neutrophils % ( Manual) 81H, Lymphocytes % (Manual) 13L, Monocytes % (Manual) 4, Eosinophils % ( Manual) 1, Basophils % (Manual) 1, Band Neutrophils 0, Platelet Estimate Adequate, Platelet Morphology Normal, Hypochromasia 3+, Anisocytosis 1+, Sodium Level 148H, Potassium Level 4.0, Chloride Level 104, Carbon Dioxide Level 28, Anion Gap 16H, Blood Urea Nitrogen 78H, Creatinine 9.5H, Estimat Glomerular Filtration Rate 5.6, Glucose Level 119H, Calcium Level 8.7, Phosphorus Level 5.6H, Magnesium Level 3.2H, Total Bilirubin 0.4, Aspartate Amino Transf (AST/ SGOT) 25, Alanine Aminotransferase (ALT/SGPT) 10L, Alkaline Phosphatase 79, Pro- B-Type Natriuretic Peptide 83259G, Total Protein 8.1, Albumin 2.0L, Globulin 6.1 , Albumin/Globulin Ratio 0.3L, Random Vancomycin Level 30.0 Height (Feet): 6 Height (Inches): 1.00 Weight (Pounds): 215 General Appearance: no apparent distress EENT: normal ENT inspection Neck: supple Cardiovascular: normal rate Respiratory/Chest: decreased breath sounds Abdomen: normal bowel sounds, non tender, soft Extremities: non-tender Marito Ramires MD July 02, 2019 09:53
--- NOTE | 2019-07-02 09:56 | Cardiac Electrophysiology PN ---
Assessment/Plan Assessment/Plan 1. Elevated troponin. Low level and flat Due to renal failure. On Aspirin. EF 60%. 2. S/P Septic shock. Off Levo 3. ESRD, on hemodialysis per Dr. Cole. 4. COVID-19 positive pneumonia. On the Vent with 30% Fio2. Fu by Dr. Mckeon. Failed weaning May need tracheostomy 5. MRSA carrier. 6. COPD. 7. Anemia. 8. Depression. [facility] RN Subjective Subjective Is Covid positive x 3 in isolation in ICU, intubated on vent on 30% Fio2, PEEP 5. Failed weaning. Off pressors. Had RFV devin and HD on 06/28. Objective Last 24 Hour Vital Signs Date Time Temp Pulse Resp B/P (MAP) Pulse Ox O2 Delivery O2 Flow Rate FiO2 07/02/19 08:30 75 0 136/76 (96) 100 07/02/19 08:00 30 07/02/19 08:00 Mechanical Ventilator 07/02/19 08:00 81 6 146/73 (97) 100 07/02/19 07:19 99 07/02/19 07:19 75 26 99 Mechanical Ventilator 30 86 26 30 07/02/19 07:00 77 118/69 (85) 07/02/19 06:30 82 25 07/02/19 06:00 26 135/69 Mechanical Ventilator 30 07/02/19 06:00 82 24 121/78 (92) 99 07/02/19 05:00 86 26 114/68 (83) 100 07/02/19 05:00 26 114/68 Mechanical Ventilator 30 07/02/19 04:14 85 07/02/19 04:14 30 07/02/19 04:00 Mechanical Ventilator 07/02/19 04:00 100.0 89 26 138/97 (111) 99 07/02/19 04:00 26 138/97 Mechanical Ventilator 30 07/02/19 03:04 87 27 100 Mechanical Ventilator 30 88 26 30 07/02/19 03:00 86 26 156/90 (112) 99 07/02/19 03:00 26 156/90 Mechanical Ventilator 30 07/02/19 02:00 81 26 137/71 (93) 99 07/02/19 02:00 26 137/71 Mechanical Ventilator 30 07/02/19 01:00 93 36 152/71 (98) 99 07/02/19 01:00 36 152/71 Mechanical Ventilator 30 07/02/19 00:00 100.3 85 27 147/79 (101) 100 07/02/19 00:00 26 147/79 Mechanical Ventilator 30 07/02/19 00:00 Mechanical Ventilator 07/01/19 23:05 89 26 100 Mechanical Ventilator 30 101 30 30 07/01/19 23:00 25 127/67 Mechanical Ventilator 30 07/01/19 23:00 127/67 07/01/19 23:00 90 26 127/67 (87) 100 07/01/19 22:00 90 8 155/74 (101) 99 07/01/19 22:00 24 155/74 Mechanical Ventilator 30 07/01/19 21:00 87 13 155/75 (101) 100 07/01/19 21:00 26 155/75 Mechanical Ventilator 30 07/01/19 20:00 99.8 85 26 136/65 (88) 100 07/01/19 20:00 26 136/65 Mechanical Ventilator 30 07/01/19 20:00 30 07/01/19 20:00 70 07/01/19 20:00 Mechanical Ventilator 07/01/19 19:37 91 27 100 Mechanical Ventilator 30 87 26 30 07/01/19 19:00 84 0 138/72 (94) 99 07/01/19 18:00 95 22 143/75 (97) 100 07/01/19 17:00 93 5 135/63 (87) 100 07/01/19 16:00 85 24 131/70 (90) 100 07/01/19 16:00 87 07/01/19 16:00 30 07/01/19 16:00 Mechanical Ventilator 07/01/19 15:20 89 26 100 Mechanical Ventilator 30 87 26 30 07/01/19 15:00 81 0 131/77 (95) 100 07/01/19 14:30 85 8 128/74 (92) 100 07/01/19 14:00 91 13 127/69 (88) 100 07/01/19 13:00 98 0 104/59 (74) 100 07/01/19 12:30 102 0 112/65 (81) 99 07/01/19 12:00 Mechanical Ventilator 07/01/19 12:00 30 07/01/19 12:00 108 07/01/19 12:00 98.1 104 20 127/71 (89) 99 07/01/19 12:00 21 112/65 Mechanical Ventilator 07/01/19 11:30 104 0 124/67 (86) 99 07/01/19 11:00 104 30 132/71 (91) 100 07/01/19 11:00 30 154/60 Mechanical Ventilator 07/01/19 10:55 104 26 100 Mechanical Ventilator 30 103 26 30 07/01/19 10:00 32 155/47 Mechanical Ventilator 07/01/19 10:00 98.8 103 5 137/71 (93) 99 Intake and Output 07/01/19 07/02/19 19:00 07:00 Intake Total 540 ml 440 ml Output Total 30 ml Balance 510 ml 440 ml IV Total 160 ml 160 ml Tube Feeding 350 ml 280 ml Other 30 ml Output Urine Total 30 ml # Voids 80 # Bowel Movements 3 1 Laboratory Tests Test 07/02/19 04:00 White Blood Count 13.3 K/UL (4.8-10.8) H Red Blood Count 2.70 M/UL (4.70-6.10) L Hemoglobin 7.9 G/DL (14.2-18.0) L Hematocrit 25.1 % (42.0-52.0) L Mean Corpuscular Volume 93 FL (80-99) Mean Corpuscular Hemoglobin 29.3 PG (27.0-31.0) Mean Corpuscular Hemoglobin Concent 31.5 G/DL (32.0-36.0) L Red Cell Distribution Width 16.7 % (11.6-14.8) H Platelet Count 470 K/UL (150-450) H Mean Platelet Volume 6.1 FL (6.5-10.1) L Neutrophils (%) (Auto) % (45.0-75.0) Lymphocytes (%) (Auto) % (20.0-45.0) Monocytes (%) (Auto) % (1.0-10.0) Eosinophils (%) (Auto) % (0.0-3.0) Basophils (%) (Auto) % (0.0-2.0) Differential Total Cells Counted 100 Neutrophils % (Manual) 81 % (45-75) H Lymphocytes % (Manual) 13 % (20-45) L Monocytes % (Manual) 4 % (1-10) Eosinophils % (Manual) 1 % (0-3) Basophils % (Manual) 1 % (0-2) Band Neutrophils 0 % (0-8) Platelet Estimate Adequate Platelet Morphology Normal Hypochromasia 3+ Anisocytosis 1+ Sodium Level 148 MMOL/L (136-145) H Potassium Level 4.0 MMOL/L (3.5-5.1) Chloride Level 104 MMOL/L (98-107) Carbon Dioxide Level 28 MMOL/L (21-32) Anion Gap 16 mmol/L (5-15) H Blood Urea Nitrogen 78 mg/dL (7-18) H Creatinine 9.5 MG/DL (0.55-1.30) H Estimat Glomerular Filtration Rate 5.6 mL/min (>60) Glucose Level 119 MG/DL (74-106) H Calcium Level 8.7 MG/DL (8.5-10.1) Phosphorus Level 5.6 MG/DL (2.5-4.9) H Magnesium Level 3.2 MG/DL (1.8-2.4) H Total Bilirubin 0.4 MG/DL (0.2-1.0) Aspartate Amino Transf (AST/SGOT) 25 U/L (15-37) Alanine Aminotransferase (ALT/SGPT) 10 U/L (12-78) L Alkaline Phosphatase 79 U/L (46-116) Pro-B-Type Natriuretic Peptide 10013 pg/mL (0-125) H Total Protein 8.1 G/DL (6.4-8.2) Albumin 2.0 G/DL (3.4-5.0) L Globulin 6.1 g/dL Albumin/Globulin Ratio 0.3 (1.0-2.7) L Random Vancomycin Level 30.0 ug/mL Objective HEAD AND NECK: No JVD. Orally intubated LUNGS: Decreased breath sounds. CARDIOVASCULAR: Regular S1 and S2. Tachycardic. ABDOMEN: Soft. EXTREMITIES: No pitting edema. New Left [facility] Gio Engle MD July 02, 2019 09:56
--- NOTE | 2019-07-02 10:30 | Nephrology Progress Note ---
Assessment/Plan Problem List: (1) CASSANDRA (acute kidney injury) (2) Anemia in chronic kidney disease (CKD) (3) HTN (hypertension) (4) COVID-19 Assessment Acute renal failure most likely superimposed on chronic kidney disease Suspected COVID-19 virus infection Possible Pneumonia, lymphopenia, elevated AST Cardiomegaly, possible CHF COPD Hypertension Anemia, most likely related to chronic kidney disease Plan July 01: Dialysis today Other status unchanged June 30: Due for dialysis tomorrow Remains intubated on ventilator Labs and medication reviewed Discussed with RN Stable from renal standpoint of view June 29: Dialyzed yesterday Due for dialysis tomorrow Stable from renal standpoint to view Keeps failing weaning process June 28: Patient due for dialysis today Stable from renal standpoint to view Continue per consultants June 27: Labs reviewed Due due for dialysis June 28 Discussed with SHANIQUE Silverman per consultants Remains intubated on ventilator June 26 Labs reviewed Dialyzed yesterday Started on weaning today Continue to monitor renal parameters June 25: On dialysis now Potassium supplement implemented Continue per consultants Next dialysis June 27June 15: Status unchanged Dialyzed yesterday will dialyze again tomorrow Potassium supplements given Discussed with RN June 14: Due dialysis today Status: Remains intubated on ventilator June 13: Status unchanged Dialyzed yesterday and duefordialysistomorrow Serum sodium stable today June 21 Remains intubated on ventilator Due dialysis today Emphasized high sodium bath for dialysis June 20: Remains intubated on ventilator Dialyzed June 19 next dialysis June 21 Serum sodium 128, will give 250 cc 3% saline Remains full code Discussed with RN Iron panel ordered June 19: Discussed with RN. Patient due for dialysis today. Continue pulmonary support. Remains full code. June 18: Patient dialyzed yesterday June 17 Serum sodium improved but still low Arrange for dialysis tomorrow June 19 Continue per consultants June 17: Due for dialysis today Today's lab reviewed, low serum sodium noted, Emphasized on high sodium bath to dialysis nurse Discussed with SHANIQUE Yuen June 16: Dialyzed yesterday Remains intubated Labs reviewed, serum sodium 131 Plan to dialyze tomorrow June 17 with high sodium bath Discussed with SHANIQUE Yuen June 15: Due for dialysis today Labs reviewed Discussed with RN Transfuse 1 unit of packed RBCs today for low hemoglobin of 7.1 June 5: Blood pressure well maintained Receive dialysis June 13 next hemodialysis June 15June 4: Discussed with RN in ICU Patient did not receive proper dialysis yesterday due to dialysis catheter malfunction Catheter to be adjusted today and dialyzed to be resumed today Continue per consultants Positive for COVID June 11: Patient now intubated on mechanical ventilation Discussed with RN Alpa, today June 12 Patient received dialysis yesterday June 10 next hemodialysis June 12 Blood pressure better maintained Today's labs reviewed Continue per consultants Previously patient received dialysis last evening June 05, next dialysis June 07 which was incomplete due to patient's hypotension Will start on midodrine for blood pressure support. Meanwhile continue other pressors as needed Previously Patient is doing poorly, septic, white blood cells are rising, Hypotension somewhat improved We will keep n.p.o. , NG tube for medications, and change medication to IV as needed Patient remains full code Monitor vancomycin level Previously: Patient pulled out his femoral catheter yesterday June 03 which was reinserted by Dr. Mast Patient scheduled for dialysis again June 04, which again was not done due to dialysis nurse citing catheter malfunction Meanwhile continue management per ID, pulmonary , and psych. Meanwhile white blood cell count is rising. Patient blood pressure borderline low. Will check ABG Previously May 31 : I believe patient need dialysis treatment He however needs to competency assessment if can make decisions or not I will communicate with Dr. Mulligan Previously: Per pulmonary and ID advice Adjust blood pressure medication Renal diet Anemia work-up 2D echocardiogram refused Kidney ultrasound refused Jules catheter Urine studies Per orders Subjective ROS Limited/Unobtainable: Yes Objective Objective Last 24 Hour Vital Signs Date Time Temp Pulse Resp B/P (MAP) Pulse Ox O2 Delivery O2 Flow Rate FiO2 07/02/19 08:30 75 0 136/76 (96) 100 07/02/19 08:00 30 07/02/19 08:00 Mechanical Ventilator 07/02/19 08:00 81 6 146/73 (97) 100 07/02/19 07:19 99 07/02/19 07:19 75 26 99 Mechanical Ventilator 30 86 26 30 07/02/19 07:00 77 118/69 (85) 07/02/19 06:30 82 25 07/02/19 06:00 26 135/69 Mechanical Ventilator 30 07/02/19 06:00 82 24 121/78 (92) 99 07/02/19 05:00 86 26 114/68 (83) 100 5/22/20 05:00 26 114/68 Mechanical Ventilator 30 07/02/19 04:14 85 07/02/19 04:14 30 07/02/19 04:00 Mechanical Ventilator 07/02/19 04:00 100.0 89 26 138/97 (111) 99 07/02/19 04:00 26 138/97 Mechanical Ventilator 30 07/02/19 03:04 87 27 100 Mechanical Ventilator 30 88 26 30 07/02/19 03:00 86 26 156/90 (112) 99 07/02/19 03:00 26 156/90 Mechanical Ventilator 30 07/02/19 02:00 81 26 137/71 (93) 99 07/02/19 02:00 26 137/71 Mechanical Ventilator 30 07/02/19 01:00 93 36 152/71 (98) 99 07/02/19 01:00 36 152/71 Mechanical Ventilator 30 07/02/19 00:00 100.3 85 27 147/79 (101) 100 07/02/19 00:00 26 147/79 Mechanical Ventilator 30 07/02/19 00:00 Mechanical Ventilator 07/01/19 23:05 89 26 100 Mechanical Ventilator 30 101 30 30 07/01/19 23:00 25 127/67 Mechanical Ventilator 30 07/01/19 23:00 127/67 07/01/19 23:00 90 26 127/67 (87) 100 07/01/19 22:00 90 8 155/74 (101) 99 07/01/19 22:00 24 155/74 Mechanical Ventilator 30 07/01/19 21:00 87 13 155/75 (101) 100 07/01/19 21:00 26 155/75 Mechanical Ventilator 30 07/01/19 20:00 99.8 85 26 136/65 (88) 100 07/01/19 20:00 26 136/65 Mechanical Ventilator 30 07/01/19 20:00 30 07/01/19 20:00 70 07/01/19 20:00 Mechanical Ventilator 07/01/19 19:37 91 27 100 Mechanical Ventilator 30 87 26 30 07/01/19 19:00 84 0 138/72 (94) 99 07/01/19 18:00 95 22 143/75 (97) 100 07/01/19 17:00 93 5 135/63 (87) 100 07/01/19 16:00 85 24 131/70 (90) 100 07/01/19 16:00 87 07/01/19 16:00 30 07/01/19 16:00 Mechanical Ventilator 07/01/19 15:20 89 26 100 Mechanical Ventilator 30 87 26 30 07/01/19 15:00 81 0 131/77 (95) 100 07/01/19 14:30 85 8 128/74 (92) 100 07/01/19 14:00 91 13 127/69 (88) 100 07/01/19 13:00 98 0 104/59 (74) 100 07/01/19 12:30 102 0 112/65 (81) 99 07/01/19 12:00 Mechanical Ventilator 07/01/19 12:00 30 07/01/19 12:00 108 07/01/19 12:00 98.1 104 20 127/71 (89) 99 07/01/19 12:00 21 112/65 Mechanical Ventilator 07/01/19 11:30 104 0 124/67 (86) 99 07/01/19 11:00 104 30 132/71 (91) 100 07/01/19 11:00 30 154/60 Mechanical Ventilator 07/01/19 10:55 104 26 100 Mechanical Ventilator 30 103 26 30 Intake and Output 07/01/19 07/02/19 19:00 07:00 Intake Total 540 ml 440 ml Output Total 30 ml Balance 510 ml 440 ml IV Total 160 ml 160 ml Tube Feeding 350 ml 280 ml Other 30 ml Output Urine Total 30 ml # Voids 80 # Bowel Movements 3 1 Laboratory Tests 07/02/19 04:00: White Blood Count 13.3H, Red Blood Count 2.70L, Hemoglobin 7.9L, Hematocrit 25.1L, Mean Corpuscular Volume 93, Mean Corpuscular Hemoglobin 29.3, Mean Corpuscular Hemoglobin Concent 31.5L, Red Cell Distribution Width 16.7H, Platelet Count 470H, Mean Platelet Volume 6.1L, Neutrophils (%) (Auto) , Lymphocytes (%) (Auto) , Monocytes (%) (Auto) , Eosinophils (%) (Auto) , Basophils (%) (Auto) , Differential Total Cells Counted 100, Neutrophils % ( Manual) 81H, Lymphocytes % (Manual) 13L, Monocytes % (Manual) 4, Eosinophils % ( Manual) 1, Basophils % (Manual) 1, Band Neutrophils 0, Platelet Estimate Adequate, Platelet Morphology Normal, Hypochromasia 3+, Anisocytosis 1+, Sodium Level 148H, Potassium Level 4.0, Chloride Level 104, Carbon Dioxide Level 28, Anion Gap 16H, Blood Urea Nitrogen 78H, Creatinine 9.5H, Estimat Glomerular Filtration Rate 5.6, Glucose Level 119H, Calcium Level 8.7, Phosphorus Level 5.6H, Magnesium Level 3.2H, Total Bilirubin 0.4, Aspartate Amino Transf (AST/ SGOT) 25, Alanine Aminotransferase (ALT/SGPT) 10L, Alkaline Phosphatase 79, Pro- B-Type Natriuretic Peptide 85401H, Total Protein 8.1, Albumin 2.0L, Globulin 6.1 , Albumin/Globulin Ratio 0.3L, Random Vancomycin Level 30.0 Height (Feet): 6 Height (Inches): 1.00 Weight (Pounds): 215 General Appearance: no apparent distress EENT: other - Intubated on ventilator Respiratory/Chest: decreased breath sounds Abdomen: distended Objective No change Mic Cole MD July 02, 2019 10:30
--- NOTE | 2019-07-02 11:04 | Hematology/Onc Progress Note ---
Assessment/Plan Assessment/Plan Assessment and Recs: # Anemia of chronic disease, likely related ot underlying kidney disease has COIVD19++++++ --> hgb trend 9-->8-->7.3-->7.9-->6.8->9.5-->10->8.3-->7.7-->7.1-->8.9->8.8->7.7 -->8.1 ->7.9-->7.7 -->8.2-->8.1 -->7.9 --> transfuse as needed, hgb goal >7 --> no evidence of hemolysis --> peripheral smear has been reviewed --> epogen started three x a week ==>> transfuse 06/08, 06/15, # Leukocytosis likely related to suspected COVID-19 virus infection --> completed plaquenil --> trend smear as needed --> initially 4-->11-->14.5-->21-->26-->21->24--.28-->23-->19-->16.2-->21--> 11.2 -->12.5-->12.3 --> pulm is aware --> on abx cefepime/vanc->zosyn/vanc-->off --> pressors as needed --> 06/27 covid 19++ # Thrombocytopenia/Lymphopenia --> likely related to covid19 --> plt 129k-->186k-->251-->285-->384 -->430 # Respiratory failure with covid19+ --> s/p vent # Possible Pneumonia --> abx completed # Cardiomegaly # Transaminitis with Elevated AST # COPD # Chronic Kidney Disease --> per renal hd # Hypertension # Dvt ppx lovenox Appreciate consultation and dw Rn Subjective Allergies: Coded Allergies: No Known Allergies (Unverified , 05/28/19) All Systems: reviewed and negative except above Subjective 06/01 nv, extremely agitated, not allowing labs draws, no night sweats, cbc ordered 06/02 confused, restraints, on abx and plaquenil, hgb 7.9, nrb 15 L 06/03 is with nonrebreather, but not compliant, remains confused 06/05 no bleeding, labs noted, no major bleeding, otherwise comfortable 06/06 labs reviewed, no bleeding, meds noted, no night sweats, on levo and nonrebreather 06/07 labs noted, no bleeding, meds reviewed, no bleeding, wbc higher 06/08 to get 2 units prbc, no night sweats, meds reviewed 06/09 is on cefepime and vanc, labs noted, ernesto Rn, no bleeding 06/10 no major changes, labs reviewed, wbc 28k, on abx, cefepime 06/12 remains in icu, labs noted, no night sweats or bleeding 06/13 sluggish pupils, remains agitated, per psych, no bleding, on vent, wbc sitll high 06/14 still confused, remains on vent, with ng, running nepro, on pressors 06/15 icu, febrile, non verbal, hgb 7.1, blood pending, completed plaq 06/16 remains in the icu, nonverbal, plan for hd tomorrow, ernesto rn 06/17 in icu, on pressor, nonverbal, on abx, no bleeding 06/19 no bleeding, nonverbal in icu, hgb is 7.7 06/20 on zosyn, tube feeds, vent, labs noted, in icu, nv 06/21 gettng hd as per renal, in icu, nv, no bleeding, tfs 06/22 icu, cxr with slight improvement, cooling blanket, weaning today 06/23 wewaning, in icu, on vent, abx, and pressors as needed, labs noted 06/24 failed weaning, off abx, completed plaquenil, hgb 8.1 06/26 icu, weaning for this am, afebrile, hgb 8 06/27 in icu, remains comotose, weaning started on peep, no night sweats 06/28 weaning today, off abx, restraints, no distress, h/h stable 06/29 covid 19+, failed weaning, no blood transfusion needed 06/30 icu, on vent, labs reviewed, no distress 07/01 in icu, may need trach, remains on hd per renal, labs noted Objective Objective Current Medications Medications (Trade) Dose Ordered Sig/Anthony Route PRN Reason Start Time Stop Time Status Last Admin Dose Admin Acetaminophen (Tylenol) 650 mg Q4H PRN NG Temp >100.5 06/13/19 11:00 07/13/19 10:59 07/01/19 08:32 Albuterol Sulfate (Proventil MDI) 2 puff Q4HRT INH 06/06/19 23:00 08/30/19 18:59 07/02/19 10:46 Chlorhexidine Gluconate (Michelle-Hex 2%) 1 applic DAILY@2000 TOPIC 06/07/19 20:00 09/05/19 19:59 07/01/19 20:27 Dextrose (Dextrose 50%) 25 ml Q30M PRN IV Hypoglycemia 06/20/19 19:30 09/18/19 19:29 Dextrose (Dextrose 50%) 50 ml Q30M PRN IV Hypoglycemia 06/20/19 19:30 09/18/19 19:29 Docusate Sodium (Colace) 100 mg THREE TIMES A DAY NG 06/07/19 13:00 07/07/19 12:59 07/02/19 09:32 Dopamine HCl/ Dextrose 250 ml @ 0 mls/hr Q24H PRN IV For hypotension 06/13/19 08:15 09/11/19 08:14 Enoxaparin Sodium (Lovenox) 30 mg DAILY SUBQ 06/07/19 09:00 08/27/19 08:59 07/01/19 08:33 Epoetin Aftab (Epoetin Aftab(ESRD on dialysis)) 10,000 unit FRI-FRI-FRI SUBQ 06/07/19 21:00 08/31/19 20:59 06/30/19 21:24 Fentanyl Citrate 250 ml @ 0 mls/hr Q24H IV 06/24/19 06:00 09/22/19 05:59 06/29/19 23:01 Hydralazine HCl (Apresoline) 10 mg Q4H PRN IV Blood pressure over 160 systol 06/07/19 10:15 09/05/19 10:14 Insulin Aspart (NovoLOG) EVERY 6 HOURS SUBQ 06/21/19 00:00 09/19/19 00:00 07/02/19 00:04 Metoclopramide HCl (Reglan) 5 mg Q8H PRN IVP Nausea & Vomiting 06/18/19 12:00 07/18/19 11:59 06/19/19 00:50 Midodrine (Pro-Amatine) 10 mg THREE TIMES A DAY NG 06/09/19 13:00 09/07/19 12:59 07/02/19 09:32 Norepinephrine Bitartrate 8 mg/ Dextrose 283 ml @ 0 mls/hr Q24H IV 06/23/19 23:00 07/23/19 22:59 06/25/19 14:38 Pantoprazole (Protonix) 40 mg DAILY IVP 06/19/19 09:00 07/19/19 08:59 07/02/19 09:32 Piperacillin Sod/ Tazobactam Sod 2.25 gm/Sodium Chloride 55 ml @ 110 mls/hr Q8HR IVPB 07/01/19 14:00 07/06/19 13:59 07/02/19 06:41 Sevelamer Carbonate (Renvela) 1,600 mg Q8HR NG 06/25/19 22:00 09/05/19 12:59 07/02/19 06:41 Vancomycin HCl (Vanco rx to dose) 1 ea DAILY PRN MISC Per rx protocol 07/01/19 11:00 07/31/19 10:59 Last 24 Hour Vital Signs Date Time Temp Pulse Resp B/P (MAP) Pulse Ox O2 Delivery O2 Flow Rate FiO2 07/02/19 10:46 71 26 99 Mechanical Ventilator 30 67 26 30 07/02/19 08:30 75 0 136/76 (96) 100 07/02/19 08:00 30 07/02/19 08:00 Mechanical Ventilator 07/02/19 08:00 81 6 146/73 (97) 100 07/02/19 07:19 99 07/02/19 07:19 75 26 99 Mechanical Ventilator 30 86 26 30 07/02/19 07:00 77 118/69 (85) 07/02/19 06:30 82 25 07/02/19 06:00 26 135/69 Mechanical Ventilator 30 07/02/19 06:00 82 24 121/78 (92) 99 07/02/19 05:00 86 26 114/68 (83) 100 07/02/19 05:00 26 114/68 Mechanical Ventilator 30 07/02/19 04:14 85 07/02/19 04:14 30 07/02/19 04:00 Mechanical Ventilator 07/02/19 04:00 100.0 89 26 138/97 (111) 99 07/02/19 04:00 26 138/97 Mechanical Ventilator 30 07/02/19 03:04 87 27 100 Mechanical Ventilator 30 88 26 30 07/02/19 03:00 86 26 156/90 (112) 99 07/02/19 03:00 26 156/90 Mechanical Ventilator 30 07/02/19 02:00 81 26 137/71 (93) 99 07/02/19 02:00 26 137/71 Mechanical Ventilator 30 07/02/19 01:00 93 36 152/71 (98) 99 07/02/19 01:00 36 152/71 Mechanical Ventilator 30 07/02/19 00:00 100.3 85 27 147/79 (101) 100 07/02/19 00:00 26 147/79 Mechanical Ventilator 30 07/02/19 00:00 Mechanical Ventilator 07/01/19 23:05 89 26 100 Mechanical Ventilator 30 101 30 30 07/01/19 23:00 25 127/67 Mechanical Ventilator 30 07/01/19 23:00 127/67 07/01/19 23:00 90 26 127/67 (87) 100 07/01/19 22:00 90 8 155/74 (101) 99 07/01/19 22:00 24 155/74 Mechanical Ventilator 30 07/01/19 21:00 87 13 155/75 (101) 100 07/01/19 21:00 26 155/75 Mechanical Ventilator 30 07/01/19 20:00 99.8 85 26 136/65 (88) 100 07/01/19 20:00 26 136/65 Mechanical Ventilator 30 07/01/19 20:00 30 07/01/19 20:00 70 07/01/19 20:00 Mechanical Ventilator 07/01/19 19:37 91 27 100 Mechanical Ventilator 30 87 26 30 07/01/19 19:00 84 0 138/72 (94) 99 07/01/19 18:00 95 22 143/75 (97) 100 07/01/19 17:00 93 5 135/63 (87) 100 07/01/19 16:00 85 24 131/70 (90) 100 07/01/19 16:00 87 07/01/19 16:00 30 07/01/19 16:00 Mechanical Ventilator 07/01/19 15:20 89 26 100 Mechanical Ventilator 30 87 26 30 07/01/19 15:00 81 0 131/77 (95) 100 07/01/19 14:30 85 8 128/74 (92) 100 07/01/19 14:00 91 13 127/69 (88) 100 07/01/19 13:00 98 0 104/59 (74) 100 07/01/19 12:30 102 0 112/65 (81) 99 07/01/19 12:00 Mechanical Ventilator 07/01/19 12:00 30 07/01/19 12:00 108 07/01/19 12:00 98.1 104 20 127/71 (89) 99 07/01/19 12:00 21 112/65 Mechanical Ventilator 07/01/19 11:30 104 0 124/67 (86) 99 07/01/19 11:00 104 30 132/71 (91) 100 07/01/19 11:00 30 154/60 Mechanical Ventilator 07/01/19 10:55 104 26 100 Mechanical Ventilator 30 103 26 30 07/01/19 10:00 32 155/47 Mechanical Ventilator 07/01/19 10:00 98.8 103 5 137/71 (93) 99 07/01/19 09:47 99 07/01/19 09:30 90 11 157/77 (103) 99 07/01/19 09:22 89 21 155/70 (98) 99 07/01/19 09:15 90 26 140/117 (125) 100 07/01/19 09:02 98.9 07/01/19 09:00 100.5 87 27 149/67 (94) 100 07/01/19 08:00 Mechanical Ventilator 07/01/19 08:00 81 26 143/67 (92) 100 07/01/19 08:00 83 07/01/19 08:00 30 07/01/19 07:22 81 26 100 Mechanical Ventilator 30 79 26 30 07/01/19 07:00 81 26 135/65 (88) 100 07/01/19 06:30 80 21 07/01/19 06:30 80 21 120/66 (84) 100 07/01/19 06:00 82 25 142/69 (93) 100 07/01/19 06:00 24 142/69 Mechanical Ventilator 30 07/01/19 05:30 84 25 148/69 (95) 99 07/01/19 05:00 86 17 156/68 (97) 99 07/01/19 04:30 85 15 143/68 (93) 100 07/01/19 04:00 98.9 81 11 143/65 (91) 99 07/01/19 04:00 30 07/01/19 04:00 26 143/65 Mechanical Ventilator 30 07/01/19 04:00 81 07/01/19 04:00 Mechanical Ventilator 07/01/19 03:30 79 24 139/66 (90) 100 07/01/19 03:03 86 22 100 Mechanical Ventilator 30 82 26 30 07/01/19 03:00 79 22 141/72 (95) 99 07/01/19 03:00 22 141/72 Mechanical Ventilator 30 07/01/19 02:30 73 25 105/61 (76) 100 07/01/19 02:00 75 25 108/57 (74) 100 07/01/19 02:00 25 108/57 Mechanical Ventilator 30 07/01/19 01:30 84 26 127/70 (89) 100 07/01/19 01:00 78 26 114/59 (77) 100 07/01/19 01:00 26 114/59 Mechanical Ventilator 30 07/01/19 00:30 82 27 119/61 (80) 100 07/01/19 00:00 99.4 75 23 113/64 (80) 100 07/01/19 00:00 23 113/64 Mechanical Ventilator 30 07/01/19 00:00 Mechanical Ventilator 06/30/19 23:30 75 26 115/60 (78) 99 06/30/19 23:00 27 114/64 Mechanical Ventilator 30 06/30/19 23:00 152/72 06/30/19 23:00 78 27 114/64 (81) 99 06/30/19 22:49 82 25 100 Mechanical Ventilator 30 84 25 30 06/30/19 22:30 82 26 115/63 (80) 99 06/30/19 22:00 18 114/115 Mechanical Ventilator 30 06/30/19 22:00 91 18 144/115 (125) 100 06/30/19 21:30 101.3 85 23 140/73 (95) 99 06/30/19 21:00 85 28 139/66 (90) 99 5/20/20 21:00 27 139/68 Mechanical Ventilator 30 5/20/20 20:30 84 25 132/59 (83) 99 5/20/20 20:00 Mechanical Ventilator 5/20/20 20:00 83 5/20/20 20:00 30 5/20/20 20:00 26 131/58 Mechanical Ventilator 30 5/20/20 20:00 83 26 133/58 (83) 99 5/20/20 19:30 94 27 143/82 (102) 99 5/20/20 19:08 96 31 100 Mechanical Ventilator 30 86 26 30 5/20/20 19:00 26 142/90 Mechanical Ventilator 30 5/20/20 19:00 102 37 142/90 (107) 98 5/20/20 18:30 97 29 151/74 (99) 99 5/20/20 18:00 26 137/66 Mechanical Ventilator 30 5/20/20 18:00 87 26 137/66 (89) 98 5/20/20 17:47 81 26 30 520/20 17:30 79 3 129/68 (88) 100 520/20 17:00 79 26 129/63 (85) 100 5/20/20 17:00 26 129/63 Mechanical Ventilator 30 20/20 16:30 76 22 129/53 (78) 100 520/20 16:00 Mechanical Ventilator [id number] 16:00 80 5/20/20 16:00 30 520/20 16:00 98.0 74 26 132/63 (86) 100 5/20/20 16:00 26 132/63 Mechanical Ventilator 30 520/20 15:10 101 27 100 Mechanical Ventilator 30 86 26 30 5/20/20 15:00 26 134/69 Mechanical Ventilator 30 5/20/20 15:00 85 29 134/69 (90) 97 5/20/20 14:00 81 26 140/65 (90) 100 5/20/20 14:00 26 140/65 Mechanical Ventilator 30 520/20 13:00 26 154/73 Mechanical Ventilator 30 5/20/20 13:00 87 26 154/73 (100) 100 5/20/20 12:00 Mechanical Ventilator 5/20/20 12:00 83 5/20/20 12:00 101.0 89 26 135/67 (89) 100 5/20/20 12:00 90 26 135/67 (89) 99 06/30/19 12:00 26 135/67 Mechanical Ventilator 30 06/30/19 11:41 80 26 100 Mechanical Ventilator 30 81 26 30 06/30/19 11:30 93 26 149/76 (100) 99 Intake and Output 07/01/19 07/02/19 19:00 07:00 Intake Total 540 ml 440 ml Output Total 30 ml Balance 510 ml 440 ml IV Total 160 ml 160 ml Tube Feeding 350 ml 280 ml Other 30 ml Output Urine Total 30 ml # Voids 80 # Bowel Movements 3 1 Labs Test 06/30/19 04:00 07/01/19 03:50 07/02/19 04:00 White Blood Count 12.8 K/UL (4.8-10.8) 12.3 K/UL (4.8-10.8) 13.3 K/UL (4.8-10.8) Red Blood Count 2.77 M/UL (4.70-6.10) 2.71 M/UL (4.70-6.10) 2.70 M/UL (4.70-6.10) Hemoglobin 8.2 G/DL (14.2-18.0) 8.1 G/DL (14.2-18.0) 7.9 G/DL (14.2-18.0) Hematocrit 25.9 % (42.0-52.0) 25.4 % (42.0-52.0) 25.1 % (42.0-52.0) Mean Corpuscular Volume 94 FL (80-99) 93 FL (80-99) 93 FL (80-99) Mean Corpuscular Hemoglobin 29.5 PG (27.0-31.0) 29.7 PG (27.0-31.0) 29.3 PG (27.0-31.0) Mean Corpuscular Hemoglobin Concent 31.5 G/DL (32.0-36.0) 31.8 G/DL (32.0-36.0) 31.5 G/DL (32.0-36.0) Red Cell Distribution Width 18.1 % (11.6-14.8) 17.6 % (11.6-14.8) 16.7 % (11.6-14.8) Platelet Count 389 K/UL (150-450) 430 K/UL (150-450) 470 K/UL (150-450) Mean Platelet Volume 6.6 FL (6.5-10.1) 6.1 FL (6.5-10.1) 6.1 FL (6.5-10.1) Neutrophils (%) (Auto) 82.8 % (45.0-75.0) 80.5 % (45.0-75.0) % (45.0-75.0) Lymphocytes (%) (Auto) 11.1 % (20.0-45.0) 10.0 % (20.0-45.0) % (20.0-45.0) Monocytes (%) (Auto) 4.4 % (1.0-10.0) 8.0 % (1.0-10.0) % (1.0-10.0) Eosinophils (%) (Auto) 1.0 % (0.0-3.0) 0.5 % (0.0-3.0) % (0.0-3.0) Basophils (%) (Auto) 0.7 % (0.0-2.0) 1.0 % (0.0-2.0) % (0.0-2.0) Sodium Level 140 MMOL/L (136-145) 144 MMOL/L (136-145) 148 MMOL/L (136-145) Potassium Level 4.1 MMOL/L (3.5-5.1) 3.6 MMOL/L (3.5-5.1) 4.0 MMOL/L (3.5-5.1) Chloride Level 98 MMOL/L (98-107) 101 MMOL/L (98-107) 104 MMOL/L (98-107) Carbon Dioxide Level 30 MMOL/L (21-32) 29 MMOL/L (21-32) 28 MMOL/L (21-32) Anion Gap 12 mmol/L (5-15) 14 mmol/L (5-15) 16 mmol/L (5-15) Blood Urea Nitrogen 56 mg/dL (7-18) 68 mg/dL (7-18) 78 mg/dL (7-18) Creatinine 6.8 MG/DL (0.55-1.30) 8.4 MG/DL (0.55-1.30) 9.5 MG/DL (0.55-1.30) Estimat Glomerular Filtration Rate 8.2 mL/min (>60) 6.4 mL/min (>60) 5.6 mL/min (>60) Glucose Level 139 MG/DL (74-106) 138 MG/DL (74-106) 119 MG/DL (74-106) Calcium Level 9.2 MG/DL (8.5-10.1) 9.5 MG/DL (8.5-10.1) 8.7 MG/DL (8.5-10.1) Phosphorus Level 4.1 MG/DL (2.5-4.9) 4.6 MG/DL (2.5-4.9) 5.6 MG/DL (2.5-4.9) Magnesium Level 2.5 MG/DL (1.8-2.4) 2.9 MG/DL (1.8-2.4) 3.2 MG/DL (1.8-2.4) Total Bilirubin 0.3 MG/DL (0.2-1.0) 0.4 MG/DL (0.2-1.0) 0.4 MG/DL (0.2-1.0) Aspartate Amino Transf (AST/SGOT) 29 U/L (15-37) 25 U/L (15-37) 25 U/L (15-37) Alanine Aminotransferase (ALT/SGPT) 11 U/L (12-78) 10 U/L (12-78) 10 U/L (12-78) Alkaline Phosphatase 95 U/L (46-116) 87 U/L (46-116) 79 U/L (46-116) C-Reactive Protein, Quantitative 17.3 mg/dL (0.00-0.90) 19.6 mg/dL (0.00-0.90) Pro-B-Type Natriuretic Peptide > 17899 pg/mL (0-125) > 72165 pg/mL (0-125) 10565 pg/mL (0-125) Total Protein 8.4 G/DL (6.4-8.2) 8.2 G/DL (6.4-8.2) 8.1 G/DL (6.4-8.2) Albumin 2.2 G/DL (3.4-5.0) 2.1 G/DL (3.4-5.0) 2.0 G/DL (3.4-5.0) Globulin 6.2 g/dL 6.1 g/dL 6.1 g/dL Albumin/Globulin Ratio 0.4 (1.0-2.7) 0.3 (1.0-2.7) 0.3 (1.0-2.7) Uric Acid 8.7 MG/DL (2.6-7.2) Differential Total Cells Counted 100 Neutrophils % (Manual) 81 % (45-75) Lymphocytes % (Manual) 13 % (20-45) Monocytes % (Manual) 4 % (1-10) Eosinophils % (Manual) 1 % (0-3) Basophils % (Manual) 1 % (0-2) Band Neutrophils 0 % (0-8) Platelet Estimate Adequate Platelet Morphology Normal Hypochromasia 3+ Anisocytosis 1+ Random Vancomycin Level 30.0 ug/mL Height (Feet): 6 Height (Inches): 1.00 Weight (Pounds): 215 Objective Sp02 EP Interpretation: reviewed General: nv, confused, sedated Heent: bilateral eye normal inspection, bilateral eye PERRL ++Ng Respiratory: normal breath sounds, no respiratory distress, intubated+++ Cardiovascular: regular rate, rhythm, no edema Gastrointestinal: normal inspection, soft, non-distended Rectal: deferred Musculoskeletal: normal range of motion, non-tender Neurologic: alert, motor strength/tone normal, sensory intact, responsive, speech normal Skin: Decubitus/Ulcer - See RN skin exam. : jamaal+ Greg Cabral MD July 02, 2019 11:04
--- NOTE | 2019-07-02 11:51 | Infectious Diseases Prog Note ---
Assessment/Plan Assessment/Plan IMPRESSION: 1. COVID19 pneumonia Positive: 05/27, 05/31 , 06/05, 06/09 ,06/17, 06/19, 06/23, 06/27 2. MRSA carrier. 3. Chronic kidney disease , end-stage renal disease. 4. COPD. 5. Hypertension. 6. Anemia. 7. Hypothyroidism. 8. Hyperlipidemia. 9. Major depression. 10. Leukocytosis 11. Hypotension 12. Hepatitis C 13. Hyperuricemia 14. Diarrhea 15. septic shock 16. Leukocytosis & fever RECOMMENDATIONS: 06/30 CXR improving Continue Vancomycin & Zosyn Finished hydroxychloroquine. Will f/u COVID19 test Case was D/W RN Subjective ROS Limited/Unobtainable: Yes Constitutional: Reports: fever, other - low grade Cardiovascular: Reports: other - on bedside HD Neurologic: Reports: confusion, other - on restraint Allergies: Coded Allergies: No Known Allergies (Unverified , 05/28/19) Objective Vital Signs Last 24 Hour Vital Signs Date Time Temp Pulse Resp B/P (MAP) Pulse Ox O2 Delivery O2 Flow Rate FiO2 07/02/19 11:00 74 0 127/63 (84) 100 07/02/19 10:46 71 26 99 Mechanical Ventilator 30 67 26 30 07/02/19 10:30 72 0 107/62 (77) 99 07/02/19 10:00 72 3 127/65 (85) 100 07/02/19 09:30 72 0 136/66 (89) 100 07/02/19 09:00 99.6 74 0 129/73 (91) 100 07/02/19 08:30 75 0 136/76 (96) 100 07/02/19 08:00 30 07/02/19 08:00 80 07/02/19 08:00 Mechanical Ventilator 07/02/19 08:00 81 6 146/73 (97) 100 07/02/19 07:19 99 07/02/19 07:19 75 26 99 Mechanical Ventilator 30 86 26 30 07/02/19 07:00 77 118/69 (85) 07/02/19 06:30 82 25 07/02/19 06:00 26 135/69 Mechanical Ventilator 30 07/02/19 06:00 82 24 121/78 (92) 99 07/02/19 05:00 86 26 114/68 (83) 100 07/02/19 05:00 26 114/68 Mechanical Ventilator 30 07/02/19 04:14 85 07/02/19 04:14 30 07/02/19 04:00 Mechanical Ventilator 07/02/19 04:00 100.0 89 26 138/97 (111) 99 07/02/19 04:00 26 138/97 Mechanical Ventilator 30 07/02/19 03:04 87 27 100 Mechanical Ventilator 30 88 26 30 07/02/19 03:00 86 26 156/90 (112) 99 07/02/19 03:00 26 156/90 Mechanical Ventilator 30 07/02/19 02:00 81 26 137/71 (93) 99 07/02/19 02:00 26 137/71 Mechanical Ventilator 30 07/02/19 01:00 93 36 152/71 (98) 99 07/02/19 01:00 36 152/71 Mechanical Ventilator 30 07/02/19 00:00 100.3 85 27 147/79 (101) 100 07/02/19 00:00 26 147/79 Mechanical Ventilator 30 07/02/19 00:00 Mechanical Ventilator 07/01/19 23:05 89 26 100 Mechanical Ventilator 30 101 30 30 07/01/19 23:00 25 127/67 Mechanical Ventilator 30 07/01/19 23:00 127/67 07/01/19 23:00 90 26 127/67 (87) 100 07/01/19 22:00 90 8 155/74 (101) 99 07/01/19 22:00 24 155/74 Mechanical Ventilator 30 07/01/19 21:00 87 13 155/75 (101) 100 07/01/19 21:00 26 155/75 Mechanical Ventilator 30 07/01/19 20:00 99.8 85 26 136/65 (88) 100 07/01/19 20:00 26 136/65 Mechanical Ventilator 30 07/01/19 20:00 30 07/01/19 20:00 70 07/01/19 20:00 Mechanical Ventilator 07/01/19 19:37 91 27 100 Mechanical Ventilator 30 87 26 30 07/01/19 19:00 84 0 138/72 (94) 99 07/01/19 18:00 95 22 143/75 (97) 100 07/01/19 17:00 93 5 135/63 (87) 100 07/01/19 16:00 85 24 131/70 (90) 100 07/01/19 16:00 87 07/01/19 16:00 30 07/01/19 16:00 Mechanical Ventilator 07/01/19 15:20 89 26 100 Mechanical Ventilator 30 87 26 30 07/01/19 15:00 81 0 131/77 (95) 100 07/01/19 14:30 85 8 128/74 (92) 100 07/01/19 14:00 91 13 127/69 (88) 100 07/01/19 13:00 98 0 104/59 (74) 100 07/01/19 12:30 102 0 112/65 (81) 99 07/01/19 12:00 Mechanical Ventilator 07/01/19 12:00 30 07/01/19 12:00 108 07/01/19 12:00 98.1 104 20 127/71 (89) 99 07/01/19 12:00 21 112/65 Mechanical Ventilator Height (Feet): 6 Height (Inches): 1.00 Weight (Pounds): 215 HEENT: other - orally intubated Respiratory/Chest: other - on ventilator Cardiovascular: normal rate, other - HD & central line Abdomen: soft, non tender, other - orogastric tube Extremities: no edema Neurologic/Psychiatric: other - opens eyes Laboratory Tests Test 07/02/19 04:00 White Blood Count 13.3 K/UL (4.8-10.8) H Red Blood Count 2.70 M/UL (4.70-6.10) L Hemoglobin 7.9 G/DL (14.2-18.0) L Hematocrit 25.1 % (42.0-52.0) L Mean Corpuscular Volume 93 FL (80-99) Mean Corpuscular Hemoglobin 29.3 PG (27.0-31.0) Mean Corpuscular Hemoglobin Concent 31.5 G/DL (32.0-36.0) L Red Cell Distribution Width 16.7 % (11.6-14.8) H Platelet Count 470 K/UL (150-450) H Mean Platelet Volume 6.1 FL (6.5-10.1) L Neutrophils (%) (Auto) % (45.0-75.0) Lymphocytes (%) (Auto) % (20.0-45.0) Monocytes (%) (Auto) % (1.0-10.0) Eosinophils (%) (Auto) % (0.0-3.0) Basophils (%) (Auto) % (0.0-2.0) Differential Total Cells Counted 100 Neutrophils % (Manual) 81 % (45-75) H Lymphocytes % (Manual) 13 % (20-45) L Monocytes % (Manual) 4 % (1-10) Eosinophils % (Manual) 1 % (0-3) Basophils % (Manual) 1 % (0-2) Band Neutrophils 0 % (0-8) Platelet Estimate Adequate Platelet Morphology Normal Hypochromasia 3+ Anisocytosis 1+ Sodium Level 148 MMOL/L (136-145) H Potassium Level 4.0 MMOL/L (3.5-5.1) Chloride Level 104 MMOL/L (98-107) Carbon Dioxide Level 28 MMOL/L (21-32) Anion Gap 16 mmol/L (5-15) H Blood Urea Nitrogen 78 mg/dL (7-18) H Creatinine 9.5 MG/DL (0.55-1.30) H Estimat Glomerular Filtration Rate 5.6 mL/min (>60) Glucose Level 119 MG/DL (74-106) H Calcium Level 8.7 MG/DL (8.5-10.1) Phosphorus Level 5.6 MG/DL (2.5-4.9) H Magnesium Level 3.2 MG/DL (1.8-2.4) H Total Bilirubin 0.4 MG/DL (0.2-1.0) Aspartate Amino Transf (AST/SGOT) 25 U/L (15-37) Alanine Aminotransferase (ALT/SGPT) 10 U/L (12-78) L Alkaline Phosphatase 79 U/L (46-116) Pro-B-Type Natriuretic Peptide 09123 pg/mL (0-125) H Total Protein 8.1 G/DL (6.4-8.2) Albumin 2.0 G/DL (3.4-5.0) L Globulin 6.1 g/dL Albumin/Globulin Ratio 0.3 (1.0-2.7) L Random Vancomycin Level 30.0 ug/mL Current Medications Medications (Trade) Dose Ordered Sig/Anthony Route PRN Reason Start Time Stop Time Status Last Admin Dose Admin Acetaminophen (Tylenol) 650 mg Q4H PRN NG Temp >100.5 06/13/19 11:00 07/13/19 10:59 07/01/19 08:32 Albuterol Sulfate (Proventil MDI) 2 puff Q4HRT INH 06/06/19 23:00 08/30/19 18:59 07/02/19 10:46 Chlorhexidine Gluconate (Michelle-Hex 2%) 1 applic DAILY@2000 TOPIC 06/07/19 20:00 09/05/19 19:59 07/01/19 20:27 Dextrose (Dextrose 50%) 25 ml Q30M PRN IV Hypoglycemia 06/20/19 19:30 09/18/19 19:29 Dextrose (Dextrose 50%) 50 ml Q30M PRN IV Hypoglycemia 06/20/19 19:30 09/18/19 19:29 Docusate Sodium (Colace) 100 mg THREE TIMES A DAY NG 06/07/19 13:00 07/07/19 12:59 07/02/19 09:32 Dopamine HCl/ Dextrose 250 ml @ 0 mls/hr Q24H PRN IV For hypotension 06/13/19 08:15 09/11/19 08:14 Enoxaparin Sodium (Lovenox) 30 mg DAILY SUBQ 06/07/19 09:00 08/27/19 08:59 07/01/19 08:33 Epoetin Aftab (Epoetin Aftab(ESRD on dialysis)) 10,000 unit FRI-FRI-FRI SUBQ 06/07/19 21:00 08/31/19 20:59 06/30/19 21:24 Fentanyl Citrate 250 ml @ 0 mls/hr Q24H IV 06/24/19 06:00 09/22/19 05:59 06/29/19 23:01 Hydralazine HCl (Apresoline) 10 mg Q4H PRN IV Blood pressure over 160 systol 06/07/19 10:15 09/05/19 10:14 Insulin Aspart (NovoLOG) EVERY 6 HOURS SUBQ 06/21/19 00:00 09/19/19 00:00 07/02/19 00:04 Metoclopramide HCl (Reglan) 5 mg Q8H PRN IVP Nausea & Vomiting 06/18/19 12:00 07/18/19 11:59 06/19/19 00:50 Midodrine (Pro-Amatine) 10 mg THREE TIMES A DAY NG 06/09/19 13:00 09/07/19 12:59 07/02/19 09:32 Norepinephrine Bitartrate 8 mg/ Dextrose 283 ml @ 0 mls/hr Q24H IV 06/23/19 23:00 07/23/19 22:59 06/25/19 14:38 Pantoprazole (Protonix) 40 mg DAILY IVP 06/19/19 09:00 07/19/19 08:59 07/02/19 09:32 Piperacillin Sod/ Tazobactam Sod 2.25 gm/Sodium Chloride 55 ml @ 110 mls/hr Q8HR IVPB 07/01/19 14:00 07/06/19 13:59 07/02/19 06:41 Sevelamer Carbonate (Renvela) 1,600 mg Q8HR NG 06/25/19 22:00 09/05/19 12:59 07/02/19 06:41 Vancomycin HCl (Vanco rx to dose) 1 ea DAILY PRN MISC Per rx protocol 07/01/19 11:00 07/31/19 10:59 Ted Leyva MD July 02, 2019 11:51
--- NOTE | 2019-07-02 13:26 | Surgery Progress Note ---
Surgery Progress Note Subjective Procedure Performed Right femoral temporary hemodialysis catheter insertion Additional Comments HD soon not weaning vent will consider trach given condition cont current care Objective Last 24 Hour Vital Signs Date Time Temp Pulse Resp B/P (MAP) Pulse Ox O2 Delivery O2 Flow Rate FiO2 07/02/19 11:50 22 115/60 07/02/19 11:00 74 0 127/63 (84) 100 07/02/19 10:46 71 26 99 Mechanical Ventilator 30 67 26 30 07/02/19 10:30 72 0 107/62 (77) 99 07/02/19 10:00 72 3 127/65 (85) 100 07/02/19 09:30 72 0 136/66 (89) 100 07/02/19 09:00 99.6 74 0 129/73 (91) 100 07/02/19 08:30 75 0 136/76 (96) 100 07/02/19 08:00 30 07/02/19 08:00 80 07/02/19 08:00 Mechanical Ventilator 07/02/19 08:00 81 6 146/73 (97) 100 07/02/19 07:19 99 07/02/19 07:19 75 26 99 Mechanical Ventilator 30 86 26 30 07/02/19 07:00 77 118/69 (85) 07/02/19 06:30 82 25 07/02/19 06:00 26 135/69 Mechanical Ventilator 30 07/02/19 06:00 82 24 121/78 (92) 99 07/02/19 05:00 86 26 114/68 (83) 100 07/02/19 05:00 26 114/68 Mechanical Ventilator 30 07/02/19 04:14 85 07/02/19 04:14 30 07/02/19 04:00 Mechanical Ventilator 07/02/19 04:00 100.0 89 26 138/97 (111) 99 07/02/19 04:00 26 138/97 Mechanical Ventilator 30 07/02/19 03:04 87 27 100 Mechanical Ventilator 30 88 26 30 07/02/19 03:00 86 26 156/90 (112) 99 07/02/19 03:00 26 156/90 Mechanical Ventilator 30 07/02/19 02:00 81 26 137/71 (93) 99 07/02/19 02:00 26 137/71 Mechanical Ventilator 30 07/02/19 01:00 93 36 152/71 (98) 99 07/02/19 01:00 36 152/71 Mechanical Ventilator 30 07/02/19 00:00 100.3 85 27 147/79 (101) 100 07/02/19 00:00 26 147/79 Mechanical Ventilator 30 07/02/19 00:00 Mechanical Ventilator 07/01/19 23:05 89 26 100 Mechanical Ventilator 30 101 30 30 07/01/19 23:00 25 127/67 Mechanical Ventilator 30 07/01/19 23:00 127/67 07/01/19 23:00 90 26 127/67 (87) 100 07/01/19 22:00 90 8 155/74 (101) 99 07/01/19 22:00 24 155/74 Mechanical Ventilator 30 07/01/19 21:00 87 13 155/75 (101) 100 07/01/19 21:00 26 155/75 Mechanical Ventilator 30 07/01/19 20:00 99.8 85 26 136/65 (88) 100 07/01/19 20:00 26 136/65 Mechanical Ventilator 30 07/01/19 20:00 30 07/01/19 20:00 70 07/01/19 20:00 Mechanical Ventilator 07/01/19 19:37 91 27 100 Mechanical Ventilator 30 87 26 30 07/01/19 19:00 84 0 138/72 (94) 99 07/01/19 18:00 95 22 143/75 (97) 100 07/01/19 17:00 93 5 135/63 (87) 100 07/01/19 16:00 85 24 131/70 (90) 100 07/01/19 16:00 87 07/01/19 16:00 30 07/01/19 16:00 Mechanical Ventilator 07/01/19 15:20 89 26 100 Mechanical Ventilator 30 87 26 30 07/01/19 15:00 81 0 131/77 (95) 100 07/01/19 14:30 85 8 128/74 (92) 100 07/01/19 14:00 91 13 127/69 (88) 100 I&O Intake and Output 07/01/19 07/02/19 19:00 07:00 Intake Total 540 ml 440 ml Output Total 30 ml Balance 510 ml 440 ml IV Total 160 ml 160 ml Tube Feeding 350 ml 280 ml Other 30 ml Output Urine Total 30 ml # Voids 80 # Bowel Movements 3 1 Dressing: other Wound: other Drains: other Cardiovascular: RSR Respiratory: decreased breath sounds Abdomen: soft, non-tender, present bowel sounds Extremities: no edema, no cyanosis Laboratory Tests Test 07/02/19 04:00 White Blood Count 13.3 K/UL (4.8-10.8) H Red Blood Count 2.70 M/UL (4.70-6.10) L Hemoglobin 7.9 G/DL (14.2-18.0) L Hematocrit 25.1 % (42.0-52.0) L Mean Corpuscular Volume 93 FL (80-99) Mean Corpuscular Hemoglobin 29.3 PG (27.0-31.0) Mean Corpuscular Hemoglobin Concent 31.5 G/DL (32.0-36.0) L Red Cell Distribution Width 16.7 % (11.6-14.8) H Platelet Count 470 K/UL (150-450) H Mean Platelet Volume 6.1 FL (6.5-10.1) L Neutrophils (%) (Auto) % (45.0-75.0) Lymphocytes (%) (Auto) % (20.0-45.0) Monocytes (%) (Auto) % (1.0-10.0) Eosinophils (%) (Auto) % (0.0-3.0) Basophils (%) (Auto) % (0.0-2.0) Differential Total Cells Counted 100 Neutrophils % (Manual) 81 % (45-75) H Lymphocytes % (Manual) 13 % (20-45) L Monocytes % (Manual) 4 % (1-10) Eosinophils % (Manual) 1 % (0-3) Basophils % (Manual) 1 % (0-2) Band Neutrophils 0 % (0-8) Platelet Estimate Adequate Platelet Morphology Normal Hypochromasia 3+ Anisocytosis 1+ Sodium Level 148 MMOL/L (136-145) H Potassium Level 4.0 MMOL/L (3.5-5.1) Chloride Level 104 MMOL/L (98-107) Carbon Dioxide Level 28 MMOL/L (21-32) Anion Gap 16 mmol/L (5-15) H Blood Urea Nitrogen 78 mg/dL (7-18) H Creatinine 9.5 MG/DL (0.55-1.30) H Estimat Glomerular Filtration Rate 5.6 mL/min (>60) Glucose Level 119 MG/DL (74-106) H Calcium Level 8.7 MG/DL (8.5-10.1) Phosphorus Level 5.6 MG/DL (2.5-4.9) H Magnesium Level 3.2 MG/DL (1.8-2.4) H Total Bilirubin 0.4 MG/DL (0.2-1.0) Aspartate Amino Transf (AST/SGOT) 25 U/L (15-37) Alanine Aminotransferase (ALT/SGPT) 10 U/L (12-78) L Alkaline Phosphatase 79 U/L (46-116) Pro-B-Type Natriuretic Peptide 95092 pg/mL (0-125) H Total Protein 8.1 G/DL (6.4-8.2) Albumin 2.0 G/DL (3.4-5.0) L Globulin 6.1 g/dL Albumin/Globulin Ratio 0.3 (1.0-2.7) L Random Vancomycin Level 30.0 ug/mL Plan Problems: (1) Suspected COVID-19 virus infection (2) HTN (hypertension) (3) CSASANDRA (acute kidney injury) Assessment & Plan: Needs urgent HD needs access patient okay and consented see note will follow with recs new line placed discussed with team and nephrology HD line functional when checked has TPA now please use appropriately Cathflo used again this flow during dialysis on 430 was low. Will monitor may need line change 5/4 plan for HD as per renal may need to take fluid off with HD edema anasarca dressings saturated and changed will monitor (4) Anemia in chronic kidney disease (CKD) (5) Anemia (6) Renal failure (7) Suspected COVID-19 virus infection Assessment & Plan: Pt deconditioned and despite all skin preventions Pt noted to have developed several pressure injuries. . Stable dry eschar noted to clefts of R and L ears. No erythema noted . DTPI noted to L trochanter. Base of injury is maroon in colour with marginal erythema along borders. Partially opened DTPI Sacrum, R and L Buttocks. Base of wound is maroon with two small open wounds L sacrum and L buttocks. Pt has an APM/MOMO Mattress overlay and is being positioned with pillows as per tolerance and within protocols. worsening despite medical efforts will cont to provide therapy Tx.Plan: Apply Cavilon Skin Barrier to both ears Daily and prn. Apply Moisture Barrier Paste to Sacrum,R and L Buttocks. Cover with Optifoam drsgs. Change every 3 days and PRN. Apply Cavilon Skin Barrier to R and L trochanter. Cover each site with Optifoam drsgs.Change every 7 days and PRN. Apply Cavilon Skin Barrier to both heels. Cover each heel with Optifoam drsg. Change every 7 days and prn. Off-load heels with pillow. Reposition at least every 2hours or as tolerated. APM/MOMO Mattress overlay. (8) COVID-19 Assessment & Plan: COVID + c diff negative febrile leukocytosis renal insufficiency see above cont resp care Rx as per ID worsening on vent support now cxr noted on pressors prognosis guarded repeat covid ++ weaning vent and pressors off slowly showing improvement Yainv Mast July 02, 2019 13:26
--- NOTE | 2019-07-02 17:19 | General Progress Note ---
Assessment/Plan Problem List: (1) Anemia ICD Codes: D64.9 - Anemia, unspecified SNOMED: 754799192 (2) Renal failure ICD Codes: N19 - Unspecified kidney failure SNOMED: 45322290 (3) Suspected COVID-19 virus infection ICD Codes: R68.89 - Other general symptoms and signs SNOMED: 995995469 (4) HTN (hypertension) ICD Codes: I10 - Essential (primary) hypertension SNOMED: 70319802 (5) CASSANDRA (acute kidney injury) ICD Codes: N17.9 - Acute kidney failure, unspecified SNOMED: 1227334, 60959458 (6) Anemia in chronic kidney disease (CKD) ICD Codes: N18.9 - Chronic kidney disease, unspecified; D63.1 - Anemia in chronic kidney disease SNOMED: 244823490 (7) Suspected COVID-19 virus infection ICD Codes: R68.89 - Other general symptoms and signs SNOMED: 540663077 Status: unchanged Assessment/Plan: covid pna resp insuff contuine supportive therapy diaylsis per renal afebrile Subjective ROS Limited/Unobtainable: Yes Allergies: Coded Allergies: No Known Allergies (Unverified , 05/28/19) Objective Last 24 Hour Vital Signs Date Time Temp Pulse Resp B/P (MAP) Pulse Ox O2 Delivery O2 Flow Rate FiO2 07/02/19 17:00 79 27 93/56 (68) 95 07/02/19 16:06 78 07/02/19 16:00 Mechanical Ventilator 07/02/19 16:00 30 07/02/19 16:00 80 26 87/57 (67) 95 07/02/19 15:30 81 26 85/61 (69) 99 07/02/19 15:15 82 26 94/53 (67) 99 07/02/19 15:00 85 26 87/58 (68) 99 07/02/19 14:45 93 28 100 Mechanical Ventilator 30 89 27 30 07/02/19 14:00 76 26 87/38 (54) 99 07/02/19 13:30 102 0 108/67 (81) 99 07/02/19 13:15 110 15 127/75 (92) 99 07/02/19 13:00 100 19 108/67 (81) 100 07/02/19 13:00 104 27 114/78 (90) 100 07/02/19 12:45 97 26 88/58 (68) 99 07/02/19 12:30 110 30 136/87 (103) 100 07/02/19 12:15 99 26 113/72 (86) 100 07/02/19 12:00 30 07/02/19 12:00 Mechanical Ventilator 07/02/19 12:00 99.4 95 21 119/79 (92) 100 07/02/19 12:00 98 07/02/19 12:00 24 119/79 Mechanical Ventilator 07/02/19 12:00 99 23 119/79 (92) 100 07/02/19 11:50 22 115/60 07/02/19 11:00 74 0 127/63 (84) 100 07/02/19 10:46 71 26 99 Mechanical Ventilator 30 67 26 30 07/02/19 10:30 72 0 107/62 (77) 99 07/02/19 10:00 18 107/62 Mechanical Ventilator 07/02/19 10:00 72 3 127/65 (85) 100 07/02/19 09:30 72 0 136/66 (89) 100 07/02/19 09:00 99.6 74 0 129/73 (91) 100 07/02/19 08:30 75 0 136/76 (96) 100 07/02/19 08:00 30 07/02/19 08:00 80 07/02/19 08:00 Mechanical Ventilator 07/02/19 08:00 81 6 146/73 (97) 100 07/02/19 07:19 99 07/02/19 07:19 75 26 99 Mechanical Ventilator 30 86 26 30 07/02/19 07:00 77 118/69 (85) 07/02/19 06:30 82 25 07/02/19 06:00 26 135/69 Mechanical Ventilator 30 07/02/19 06:00 82 24 121/78 (92) 99 07/02/19 05:00 86 26 114/68 (83) 100 07/02/19 05:00 26 114/68 Mechanical Ventilator 30 07/02/19 04:14 85 07/02/19 04:14 30 07/02/19 04:00 Mechanical Ventilator 07/02/19 04:00 100.0 89 26 138/97 (111) 99 07/02/19 04:00 26 138/97 Mechanical Ventilator 30 07/02/19 03:04 87 27 100 Mechanical Ventilator 30 88 26 30 07/02/19 03:00 86 26 156/90 (112) 99 07/02/19 03:00 26 156/90 Mechanical Ventilator 30 07/02/19 02:00 81 26 137/71 (93) 99 07/02/19 02:00 26 137/71 Mechanical Ventilator 30 07/02/19 01:00 93 36 152/71 (98) 99 07/02/19 01:00 36 152/71 Mechanical Ventilator 30 07/02/19 00:00 100.3 85 27 147/79 (101) 100 07/02/19 00:00 26 147/79 Mechanical Ventilator 30 07/02/19 00:00 Mechanical Ventilator 07/01/19 23:05 89 26 100 Mechanical Ventilator 30 101 30 30 07/01/19 23:00 25 127/67 Mechanical Ventilator 30 07/01/19 23:00 127/67 07/01/19 23:00 90 26 127/67 (87) 100 07/01/19 22:00 90 8 155/74 (101) 99 07/01/19 22:00 24 155/74 Mechanical Ventilator 30 07/01/19 21:00 87 13 155/75 (101) 100 07/01/19 21:00 26 155/75 Mechanical Ventilator 30 07/01/19 20:00 99.8 85 26 136/65 (88) 100 07/01/19 20:00 26 136/65 Mechanical Ventilator 30 07/01/19 20:00 30 07/01/19 20:00 70 07/01/19 20:00 Mechanical Ventilator 07/01/19 19:37 91 27 100 Mechanical Ventilator 30 87 26 30 07/01/19 19:00 84 0 138/72 (94) 99 07/01/19 18:00 95 22 143/75 (97) 100 Intake and Output 07/01/19 07/02/19 19:00 07:00 Intake Total 540 ml 440 ml Output Total 30 ml Balance 510 ml 440 ml IV Total 160 ml 160 ml Tube Feeding 350 ml 280 ml Other 30 ml Output Urine Total 30 ml # Voids 80 # Bowel Movements 3 1 Laboratory Tests 07/02/19 04:00: White Blood Count 13.3H, Red Blood Count 2.70L, Hemoglobin 7.9L, Hematocrit 25.1L, Mean Corpuscular Volume 93, Mean Corpuscular Hemoglobin 29.3, Mean Corpuscular Hemoglobin Concent 31.5L, Red Cell Distribution Width 16.7H, Platelet Count 470H, Mean Platelet Volume 6.1L, Neutrophils (%) (Auto) , Lymphocytes (%) (Auto) , Monocytes (%) (Auto) , Eosinophils (%) (Auto) , Basophils (%) (Auto) , Differential Total Cells Counted 100, Neutrophils % ( Manual) 81H, Lymphocytes % (Manual) 13L, Monocytes % (Manual) 4, Eosinophils % ( Manual) 1, Basophils % (Manual) 1, Band Neutrophils 0, Platelet Estimate Adequate, Platelet Morphology Normal, Hypochromasia 3+, Anisocytosis 1+, Sodium Level 148H, Potassium Level 4.0, Chloride Level 104, Carbon Dioxide Level 28, Anion Gap 16H, Blood Urea Nitrogen 78H, Creatinine 9.5H, Estimat Glomerular Filtration Rate 5.6, Glucose Level 119H, Calcium Level 8.7, Phosphorus Level 5.6H, Magnesium Level 3.2H, Total Bilirubin 0.4, Aspartate Amino Transf (AST/ SGOT) 25, Alanine Aminotransferase (ALT/SGPT) 10L, Alkaline Phosphatase 79, Pro- B-Type Natriuretic Peptide 87589G, Total Protein 8.1, Albumin 2.0L, Globulin 6.1 , Albumin/Globulin Ratio 0.3L, Random Vancomycin Level 30.0 Height (Feet): 6 Height (Inches): 1.00 Weight (Pounds): 215 Karishma Mulligan MD July 02, 2019 17:19
[2019-07-02] MEDS: Dyna-Hex 2% Top Sol 2oz TOPIC SCH (20:11)
[2019-07-02] MEDS: Epoetin Alfa-EPBX(ESRD on dialysis)10,000 unit/ml vial SUBQ SCH (21:47)
[2019-07-02] MEDS: D5W IV SCH ×3 (23:00)
[2019-07-02] MEDS: NOREPINEPHRINE BITARTRATE IV SCH ×3 (23:00)
[2019-07-03] VITALS (24 sets, daily range): BP systolic 91–140; BP diastolic 60–72
[2019-07-03] MEDS: NovoLOG Insulin Flexpen SUBQ SCH ×4 (00:09→18:25)
--- NOTE | 2019-07-03 00:35 | Pulmonolgy Critical Care Note ---
Critical Care - Asmt/Plan Assessment/Plan: Pulmonary CCM Progress Note HPI: Patient is a 68 year old man, care home resident, admitted c/o shortness of breath, cough, noted to have Covid 19 Pneumonia, Respiratory Failure S/p intubation, CXR improving infiltrates ETT adjusted Septic Shock, pressors off Preserved EF FIO2 40%-50%, P5, adequate O2 sats, remains on ACVC, did not tolerate weaning, less sedated, minimal secretions HD per Renal Hyponatremia stable Anemic ID following See earlier on 07/02/2019 Past Medical History: COPD, CKD, Hypertension, Anemia Allergies: No Known Allergies Improving Pulmonary Status on HD Physical Exam Vital Signs Noted Sedated on ventilator WDWN, no distress HEENT: NCAT,moist mm Chest: Occasional rhonchi Heart: HS1, HS2, RRR Abdomen: SNTND, no masses Extremities: Well perfused, no edema [employer]: No focal signs, no seizures, sedated Impression: COVID-19 virus infection Pneumonia Respiratory failure on ventilator Volume overload improving - on HD Hypotension on pressors Cardiomegaly Lymphopenia Elevated AST COPD Chronic Kidney Disease - HD H/o Hypertension Worsening anemia Plan: Antibiotics per ID HD Pressors PRN ACVC - wean as tolerated once pressors reduced/off ABG PRN [employer] 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 Medications 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 Monitor cultures/viral studies PPX Hemodialysis per Renal Psychiatry following [facility] - [facility] requested for when available, [facility] - not available as yet Laboratory Tests Noted: CXR: Hypoventilatory exam, interstitial changes, cardiomegaly, improving infiltrates Subjective ROS Limited/Unobtainable: No Constitutional: Denies: fever Respiratory: Reports: dry cough, shortness of breath Gastrointestinal/Abdominal: Reports: diarrhea, other - colace was stopped Psychiatric: Reports: other - refuses labs Allergies: Coded Allergies: No Known Allergies (Unverified , 05/28/19) All Systems: reviewed and negative except above Labs noted Critical Care - Objective Last 24 Hour Vital Signs Date Time Temp Pulse Resp B/P (MAP) Pulse Ox O2 Delivery O2 Flow Rate FiO2 07/03/19 00:15 26 86/64 Mechanical Ventilator 30 07/03/19 00:00 Mechanical Ventilator 07/03/19 00:00 98.9 74 26 102/63 (76) 100 07/02/19 23:00 78 26 107/61 (76) 100 07/02/19 23:00 26 107/61 Mechanical Ventilator 30 07/02/19 23:00 115/72 07/02/19 22:50 86 27 100 Mechanical Ventilator 30 90 29 30 07/02/19 22:00 27 111/61 Mechanical Ventilator 30 07/02/19 22:00 72 28 111/61 (78) 100 07/02/19 21:00 70 27 95/58 (70) 100 07/02/19 21:00 26 95/50 Mechanical Ventilator 30 07/02/19 20:00 76 07/02/19 20:00 30 07/02/19 20:00 26 111/63 Mechanical Ventilator 30 07/02/19 20:00 99.4 80 26 111/63 (79) 99 07/02/19 20:00 Mechanical Ventilator 07/02/19 19:41 79 26 100 Mechanical Ventilator 30 78 27 30 07/02/19 19:00 79 0 103/60 (74) 100 07/02/19 19:00 26 103/60 Mechanical Ventilator 30 07/02/19 18:00 25 110/63 Mechanical Ventilator 07/02/19 18:00 89 26 126/105 (112) 99 07/02/19 17:00 79 27 93/56 (68) 95 07/02/19 17:00 25 108/64 Mechanical Ventilator 07/02/19 16:06 78 07/02/19 16:00 Mechanical Ventilator 07/02/19 16:00 30 07/02/19 16:00 17 87/57 Mechanical Ventilator 07/02/19 16:00 80 26 87/57 (67) 95 07/02/19 15:30 81 26 85/61 (69) 99 07/02/19 15:15 82 26 94/53 (67) 99 07/02/19 15:00 85 26 87/58 (68) 99 07/02/19 15:00 26 87/58 Mechanical Ventilator 07/02/19 14:45 93 28 100 Mechanical Ventilator 30 89 27 30 07/02/19 14:00 76 26 87/38 (54) 99 07/02/19 13:30 102 0 108/67 (81) 99 07/02/19 13:15 110 15 127/75 (92) 99 07/02/19 13:00 100 19 108/67 (81) 100 07/02/19 13:00 104 27 114/78 (90) 100 5/22/20 12:45 97 26 88/58 (68) 99 07/02/19 12:30 110 30 136/87 (103) 100 07/02/19 12:15 99 26 113/72 (86) 100 07/02/19 12:00 30 07/02/19 12:00 Mechanical Ventilator 07/02/19 12:00 99.4 95 21 119/79 (92) 100 07/02/19 12:00 98 07/02/19 12:00 24 119/79 Mechanical Ventilator 07/02/19 12:00 99 23 119/79 (92) 100 07/02/19 11:50 22 115/60 07/02/19 11:00 74 0 127/63 (84) 100 07/02/19 10:46 71 26 99 Mechanical Ventilator 30 67 26 30 07/02/19 10:30 72 0 107/62 (77) 99 07/02/19 10:00 18 107/62 Mechanical Ventilator 07/02/19 10:00 72 3 127/65 (85) 100 07/02/19 09:30 72 0 136/66 (89) 100 07/02/19 09:00 99.6 74 0 129/73 (91) 100 07/02/19 08:30 75 0 136/76 (96) 100 07/02/19 08:00 30 07/02/19 08:00 80 07/02/19 08:00 Mechanical Ventilator 07/02/19 08:00 81 6 146/73 (97) 100 07/02/19 07:19 99 07/02/19 07:19 75 26 99 Mechanical Ventilator 30 86 26 30 07/02/19 07:00 77 118/69 (85) 07/02/19 06:30 82 25 07/02/19 06:00 26 135/69 Mechanical Ventilator 30 07/02/19 06:00 82 24 121/78 (92) 99 07/02/19 05:00 86 26 114/68 (83) 100 07/02/19 05:00 26 114/68 Mechanical Ventilator 30 07/02/19 04:14 85 07/02/19 04:14 30 07/02/19 04:00 Mechanical Ventilator 07/02/19 04:00 100.0 89 26 138/97 (111) 99 07/02/19 04:00 26 138/97 Mechanical Ventilator 30 07/02/19 03:04 87 27 100 Mechanical Ventilator 30 88 26 30 07/02/19 03:00 86 26 156/90 (112) 99 07/02/19 03:00 26 156/90 Mechanical Ventilator 30 07/02/19 02:00 81 26 137/71 (93) 99 07/02/19 02:00 26 137/71 Mechanical Ventilator 30 07/02/19 01:00 93 36 152/71 (98) 99 07/02/19 01:00 36 152/71 Mechanical Ventilator 30 Micro: Microbiology Date/Time Source Procedure Growth Status 07/01/19 12:00 Blood Blood Culture - Preliminary Resulted Accucheck: 186 Critical Care - Subjective ROS Limited/Unobtainable: Yes Condition: stable IV Access: central FI02: 30 Vent Support Breath Rate: 26 Vent Support Mode: AC Vent Tidal Volume: 500 Sputum Amount: Moderate PEEP: 5.0 PIP: 27 Tube Feeding Amount: 0 I&O: Intake and Output 07/02/19 07/03/19 19:00 07:00 Intake Total 530 ml 354 ml Output Total 3055 ml Balance -2525 ml 354 ml IV Total 180 ml 89 ml Tube Feeding 315 ml 105 ml Other 35 ml 160 ml Output Urine Total 55 ml Hemodialysis UF 3000 ml # Bowel Movements 3 2 ET-Tube: 7.5 ET Position: 26 Arturo Mckeon MD July 03, 2019 00:35
[2019-07-03] MEDS: Albuterol 90mcg Inhaler 8gm INH SCH ×6 (04:31→23:00)
[2019-07-03] MEDS: Renvela 800mg Pkt NG SCH ×3 (05:32→20:40)
[2019-07-03] MEDS: Piperacillin/Tazobactam 2.25 GM in NS 55 ML IVPB SCH ×3 (05:32→20:40)
[2019-07-03 06:03] LABS: BASOPHILS % (AUTO) 1.6 % (0.0-2.0); EOSINOPHILS % (AUTO) 2.1 % (0.0-3.0); HEMATOCRIT 26.9 % (42.0-52.0); HEMOGLOBIN 8.5 G/DL (14.2-18.0); LYMPHOCYTES % (AUTO) 11.3 % (20.0-45.0); MEAN CORPUSCULAR VOLUME 93 FL (80-99); MONOCYTES % (AUTO) 8.5 % (1.0-10.0); NEUTROPHILS % (AUTO) 76.5 % (45.0-75.0); PLATELET COUNT 446 K/UL (150-450); WHITE BLOOD COUNT 12.4 K/UL (4.8-10.8)
[2019-07-03 06:28] LABS: ALANINE AMINOTRANSFERASE 13 U/L (12-78); ALBUMIN 2.1 G/DL (3.4-5.0); ALBUMIN/GLOBULIN RATIO 0.3 (1.0-2.7); ALKALINE PHOSPHATASE 82 U/L (46-116); ANION GAP 17 mmol/L (5-15); ASPARTATE AMINO TRANSFERASE 27 U/L (15-37); BILIRUBIN,TOTAL 0.5 MG/DL (0.2-1.0); BLOOD UREA NITROGEN 59 mg/dL (7-18); CALCIUM 8.8 MG/DL (8.5-10.1); CARBON DIOXIDE 26 MMOL/L (21-32); CHLORIDE 98 MMOL/L (98-107); CREATININE 7.9 MG/DL (0.55-1.30); POTASSIUM 3.7 MMOL/L (3.5-5.1); SODIUM 141 MMOL/L (136-145)
[2019-07-03 06:51] LABS: PHOSPHORUS 5.1 MG/DL (2.5-4.9)
[2019-07-03] MEDS: Pantoprazole Inj IVP SCH (09:52)
[2019-07-03] MEDS: Docusate 100mg/10ml Liq NG SCH ×3 (09:53→18:00)
[2019-07-03] MEDS: Midodrine 10mg tab NG SCH ×3 (09:53→18:00)
[2019-07-03] MEDS: Enoxaparin 30mg Inj SUBQ SCH (09:54)
--- NOTE | 2019-07-03 10:00 | General Progress Note ---
Assessment/Plan Problem List: (1) Anemia ICD Codes: D64.9 - Anemia, unspecified SNOMED: 401818726 (2) Renal failure ICD Codes: N19 - Unspecified kidney failure SNOMED: 15675038 (3) Suspected COVID-19 virus infection ICD Codes: R68.89 - Other general symptoms and signs SNOMED: 512345934 (4) HTN (hypertension) ICD Codes: I10 - Essential (primary) hypertension SNOMED: 18524546 (5) CASSANDRA (acute kidney injury) ICD Codes: N17.9 - Acute kidney failure, unspecified SNOMED: 4173893, 19859689 (6) Anemia in chronic kidney disease (CKD) ICD Codes: N18.9 - Chronic kidney disease, unspecified; D63.1 - Anemia in chronic kidney disease SNOMED: 786489065 (7) Suspected COVID-19 virus infection ICD Codes: R68.89 - Other general symptoms and signs SNOMED: 332160580 Status: unchanged Assessment/Plan: no change reviewed chart and labs covid pna resp insuff contuine supportive therapy getting diaylsis per renal afebrile Subjective ROS Limited/Unobtainable: Yes Allergies: Coded Allergies: No Known Allergies (Unverified , 05/28/19) Objective Last 24 Hour Vital Signs Date Time Temp Pulse Resp B/P (MAP) Pulse Ox O2 Delivery O2 Flow Rate FiO2 07/03/19 08:45 99 07/03/19 07:11 73 27 99 Mechanical Ventilator 30 75 28 30 07/03/19 07:00 80 26 137/70 (92) 100 07/03/19 06:30 75 26 07/03/19 06:00 98.3 81 26 109/66 (80) 100 07/03/19 06:00 26 109/64 Mechanical Ventilator 30 07/03/19 05:00 26 123/68 Mechanical Ventilator 30 07/03/19 05:00 83 26 123/68 (86) 100 07/03/19 04:31 79 27 98 Mechanical Ventilator 30 77 29 30 07/03/19 04:00 Mechanical Ventilator 07/03/19 04:00 30 07/03/19 04:00 26 109/62 Mechanical Ventilator 30 07/03/19 04:00 79 26 109/62 (78) 100 07/03/19 04:00 79 07/03/19 03:00 28 116/72 Mechanical Ventilator 30 07/03/19 03:00 76 26 116/72 (87) 100 07/03/19 02:00 24 128/66 Mechanical Ventilator 30 07/03/19 02:00 78 24 128/66 (86) 100 07/03/19 01:00 26 121/72 Mechanical Ventilator 30 07/03/19 01:00 76 26 121/72 (88) 100 07/03/19 00:15 26 86/64 Mechanical Ventilator 30 07/03/19 00:00 26 102/63 Mechanical Ventilator 30 07/03/19 00:00 Mechanical Ventilator 07/03/19 00:00 98.9 74 26 102/63 (76) 100 07/02/19 23:00 78 26 107/61 (76) 100 07/02/19 23:00 26 107/61 Mechanical Ventilator 30 07/02/19 23:00 115/72 07/02/19 22:50 86 27 100 Mechanical Ventilator 30 90 29 30 07/02/19 22:00 27 111/61 Mechanical Ventilator 30 07/02/19 22:00 72 28 111/61 (78) 100 07/02/19 21:00 70 27 95/58 (70) 100 07/02/19 21:00 26 95/50 Mechanical Ventilator 30 07/02/19 20:00 76 07/02/19 20:00 30 07/02/19 20:00 26 111/63 Mechanical Ventilator 30 07/02/19 20:00 99.4 80 26 111/63 (79) 99 07/02/19 20:00 Mechanical Ventilator 07/02/19 19:41 79 26 100 Mechanical Ventilator 30 78 27 30 07/02/19 19:00 79 0 103/60 (74) 100 07/02/19 19:00 26 103/60 Mechanical Ventilator 30 07/02/19 18:00 25 110/63 Mechanical Ventilator 07/02/19 18:00 89 26 126/105 (112) 99 07/02/19 17:00 79 27 93/56 (68) 95 07/02/19 17:00 25 108/64 Mechanical Ventilator 07/02/19 16:06 78 07/02/19 16:00 Mechanical Ventilator 07/02/19 16:00 30 07/02/19 16:00 17 87/57 Mechanical Ventilator 07/02/19 16:00 80 26 87/57 (67) 95 5/22/20 15:30 81 26 85/61 (69) 99 07/02/19 15:15 82 26 94/53 (67) 99 07/02/19 15:00 85 26 87/58 (68) 99 07/02/19 15:00 26 87/58 Mechanical Ventilator 07/02/19 14:45 93 28 100 Mechanical Ventilator 30 89 27 30 07/02/19 14:00 76 26 87/38 (54) 99 07/02/19 13:30 102 0 108/67 (81) 99 07/02/19 13:15 110 15 127/75 (92) 99 07/02/19 13:00 100 19 108/67 (81) 100 07/02/19 13:00 104 27 114/78 (90) 100 07/02/19 12:45 97 26 88/58 (68) 99 07/02/19 12:30 110 30 136/87 (103) 100 07/02/19 12:15 99 26 113/72 (86) 100 07/02/19 12:00 30 07/02/19 12:00 Mechanical Ventilator 07/02/19 12:00 99.4 95 21 119/79 (92) 100 07/02/19 12:00 98 07/02/19 12:00 24 119/79 Mechanical Ventilator 07/02/19 12:00 99 23 119/79 (92) 100 07/02/19 11:50 22 115/60 07/02/19 11:00 74 0 127/63 (84) 100 07/02/19 10:46 71 26 99 Mechanical Ventilator 30 67 26 30 07/02/19 10:30 72 0 107/62 (77) 99 07/02/19 10:00 18 107/62 Mechanical Ventilator 07/02/19 10:00 72 3 127/65 (85) 100 Intake and Output 07/02/19 07/03/19 19:00 07:00 Intake Total 530 ml 785 ml Output Total 3055 ml 70 ml Balance -2525 ml 715 ml Free Water 260 ml IV Total 180 ml 175 ml Tube Feeding 315 ml 190 ml Other 35 ml 160 ml Output Urine Total 55 ml 70 ml Hemodialysis UF 3000 ml # Bowel Movements 3 2 Laboratory Tests 07/03/19 04:00: White Blood Count 12.4H, Red Blood Count 2.90L, Hemoglobin 8.5L, Hematocrit 26.9L, Mean Corpuscular Volume 93, Mean Corpuscular Hemoglobin 29.2, Mean Corpuscular Hemoglobin Concent 31.5L, Red Cell Distribution Width 17.0H, Platelet Count 446, Mean Platelet Volume 6.1L, Neutrophils (%) (Auto) 76.5H, Lymphocytes (%) (Auto) 11.3L, Monocytes (%) (Auto) 8.5, Eosinophils (%) (Auto) 2.1, Basophils (%) (Auto) 1.6, Sodium Level 141, Potassium Level 3.7, Chloride Level 98, Carbon Dioxide Level 26, Anion Gap 17H, Blood Urea Nitrogen 59H, Creatinine 7.9H, Estimat Glomerular Filtration Rate 6.9, Glucose Level 114H, Calcium Level 8.8, Phosphorus Level 5.1H, Magnesium Level 2.4, Total Bilirubin 0.5, Aspartate Amino Transf (AST/SGOT) 27, Alanine Aminotransferase (ALT/SGPT) 13, Alkaline Phosphatase 82, C-Reactive Protein, Quantitative 9.2H, Pro-B-Type Natriuretic Peptide > 13560S, Total Protein 8.8H, Albumin 2.1L, Globulin 6.7, Albumin/Globulin Ratio 0.3L, Random Vancomycin Level 25.0 Height (Feet): 6 Height (Inches): 1.00 Weight (Pounds): 218 Karishma Mulligan MD July 03, 2019 10:00
--- NOTE | 2019-07-03 10:54 | Surgery Progress Note ---
Surgery Progress Note Subjective Procedure Performed Right femoral temporary hemodialysis catheter insertion Additional Comments no acute events labs reviewed exam stable comfortable Objective Last 24 Hour Vital Signs Date Time Temp Pulse Resp B/P (MAP) Pulse Ox O2 Delivery O2 Flow Rate FiO2 07/03/19 08:45 99 07/03/19 07:11 73 27 99 Mechanical Ventilator 30 75 28 30 07/03/19 07:00 80 26 137/70 (92) 100 07/03/19 06:30 75 26 07/03/19 06:00 98.3 81 26 109/66 (80) 100 07/03/19 06:00 26 109/64 Mechanical Ventilator 30 07/03/19 05:00 26 123/68 Mechanical Ventilator 30 07/03/19 05:00 83 26 123/68 (86) 100 07/03/19 04:31 79 27 98 Mechanical Ventilator 30 77 29 30 07/03/19 04:00 Mechanical Ventilator 07/03/19 04:00 30 07/03/19 04:00 26 109/62 Mechanical Ventilator 30 07/03/19 04:00 79 26 109/62 (78) 100 07/03/19 04:00 79 07/03/19 03:00 28 116/72 Mechanical Ventilator 30 07/03/19 03:00 76 26 116/72 (87) 100 07/03/19 02:00 24 128/66 Mechanical Ventilator 30 07/03/19 02:00 78 24 128/66 (86) 100 07/03/19 01:00 26 121/72 Mechanical Ventilator 30 07/03/19 01:00 76 26 121/72 (88) 100 07/03/19 00:15 26 86/64 Mechanical Ventilator 30 07/03/19 00:00 26 102/63 Mechanical Ventilator 30 07/03/19 00:00 Mechanical Ventilator 07/03/19 00:00 98.9 74 26 102/63 (76) 100 07/02/19 23:00 78 26 107/61 (76) 100 07/02/19 23:00 26 107/61 Mechanical Ventilator 30 07/02/19 23:00 115/72 07/02/19 22:50 86 27 100 Mechanical Ventilator 30 90 29 30 07/02/19 22:00 27 111/61 Mechanical Ventilator 30 07/02/19 22:00 72 28 111/61 (78) 100 07/02/19 21:00 70 27 95/58 (70) 100 07/02/19 21:00 26 95/50 Mechanical Ventilator 30 07/02/19 20:00 76 07/02/19 20:00 30 07/02/19 20:00 26 111/63 Mechanical Ventilator 30 07/02/19 20:00 99.4 80 26 111/63 (79) 99 07/02/19 20:00 Mechanical Ventilator 07/02/19 19:41 79 26 100 Mechanical Ventilator 30 78 27 30 07/02/19 19:00 79 0 103/60 (74) 100 07/02/19 19:00 26 103/60 Mechanical Ventilator 30 07/02/19 18:00 25 110/63 Mechanical Ventilator 07/02/19 18:00 89 26 126/105 (112) 99 07/02/19 17:00 79 27 93/56 (68) 95 07/02/19 17:00 25 108/64 Mechanical Ventilator 07/02/19 16:06 78 07/02/19 16:00 Mechanical Ventilator 07/02/19 16:00 30 07/02/19 16:00 17 87/57 Mechanical Ventilator 07/02/19 16:00 80 26 87/57 (67) 95 07/02/19 15:30 81 26 85/61 (69) 99 07/02/19 15:15 82 26 94/53 (67) 99 07/02/19 15:00 85 26 87/58 (68) 99 07/02/19 15:00 26 87/58 Mechanical Ventilator 07/02/19 14:45 93 28 100 Mechanical Ventilator 30 89 27 30 07/02/19 14:00 76 26 87/38 (54) 99 07/02/19 13:30 102 0 108/67 (81) 99 07/02/19 13:15 110 15 127/75 (92) 99 07/02/19 13:00 100 19 108/67 (81) 100 07/02/19 13:00 104 27 114/78 (90) 100 07/02/19 12:45 97 26 88/58 (68) 99 07/02/19 12:30 110 30 136/87 (103) 100 07/02/19 12:15 99 26 113/72 (86) 100 07/02/19 12:00 30 07/02/19 12:00 Mechanical Ventilator 07/02/19 12:00 99.4 95 21 119/79 (92) 100 07/02/19 12:00 98 07/02/19 12:00 24 119/79 Mechanical Ventilator 07/02/19 12:00 99 23 119/79 (92) 100 07/02/19 11:50 22 115/60 07/02/19 11:00 74 0 127/63 (84) 100 I&O Intake and Output 07/02/19 07/03/19 19:00 07:00 Intake Total 530 ml 785 ml Output Total 3055 ml 70 ml Balance -2525 ml 715 ml Free Water 260 ml IV Total 180 ml 175 ml Tube Feeding 315 ml 190 ml Other 35 ml 160 ml Output Urine Total 55 ml 70 ml Hemodialysis UF 3000 ml # Bowel Movements 3 2 Dressing: other Wound: other Drains: other Cardiovascular: RSR Respiratory: decreased breath sounds Abdomen: soft, present bowel sounds Extremities: no cyanosis Laboratory Tests Test 07/03/19 04:00 White Blood Count 12.4 K/UL (4.8-10.8) H Red Blood Count 2.90 M/UL (4.70-6.10) L Hemoglobin 8.5 G/DL (14.2-18.0) L Hematocrit 26.9 % (42.0-52.0) L Mean Corpuscular Volume 93 FL (80-99) Mean Corpuscular Hemoglobin 29.2 PG (27.0-31.0) Mean Corpuscular Hemoglobin Concent 31.5 G/DL (32.0-36.0) L Red Cell Distribution Width 17.0 % (11.6-14.8) H Platelet Count 446 K/UL (150-450) Mean Platelet Volume 6.1 FL (6.5-10.1) L Neutrophils (%) (Auto) 76.5 % (45.0-75.0) H Lymphocytes (%) (Auto) 11.3 % (20.0-45.0) L Monocytes (%) (Auto) 8.5 % (1.0-10.0) Eosinophils (%) (Auto) 2.1 % (0.0-3.0) Basophils (%) (Auto) 1.6 % (0.0-2.0) Sodium Level 141 MMOL/L (136-145) Potassium Level 3.7 MMOL/L (3.5-5.1) Chloride Level 98 MMOL/L (98-107) Carbon Dioxide Level 26 MMOL/L (21-32) Anion Gap 17 mmol/L (5-15) H Blood Urea Nitrogen 59 mg/dL (7-18) H Creatinine 7.9 MG/DL (0.55-1.30) H Estimat Glomerular Filtration Rate 6.9 mL/min (>60) Glucose Level 114 MG/DL (74-106) H Calcium Level 8.8 MG/DL (8.5-10.1) Phosphorus Level 5.1 MG/DL (2.5-4.9) H Magnesium Level 2.4 MG/DL (1.8-2.4) Total Bilirubin 0.5 MG/DL (0.2-1.0) Aspartate Amino Transf (AST/SGOT) 27 U/L (15-37) Alanine Aminotransferase (ALT/SGPT) 13 U/L (12-78) Alkaline Phosphatase 82 U/L (46-116) C-Reactive Protein, Quantitative 9.2 mg/dL (0.00-0.90) H Pro-B-Type Natriuretic Peptide > 38381 pg/mL (0-125) H Total Protein 8.8 G/DL (6.4-8.2) H Albumin 2.1 G/DL (3.4-5.0) L Globulin 6.7 g/dL Albumin/Globulin Ratio 0.3 (1.0-2.7) L Random Vancomycin Level 25.0 ug/mL Plan Problems: (1) Suspected COVID-19 virus infection (2) HTN (hypertension) (3) CASSANDRA (acute kidney injury) Assessment & Plan: Needs urgent HD needs access patient okay and consented see note will follow with recs new line placed discussed with team and nephrology HD line functional when checked has TPA now please use appropriately Cathflo used again this flow during dialysis on 430 was low. Will monitor may need line change 5/4 plan for HD as per renal may need to take fluid off with HD edema anasarca dressings saturated and changed will monitor (4) Anemia in chronic kidney disease (CKD) (5) Anemia (6) Renal failure (7) Suspected COVID-19 virus infection Assessment & Plan: Pt deconditioned and despite all skin preventions Pt noted to have developed several pressure injuries. . Stable dry eschar noted to clefts of R and L ears. No erythema noted . DTPI noted to L trochanter. Base of injury is maroon in colour with marginal erythema along borders. Partially opened DTPI Sacrum, R and L Buttocks. Base of wound is maroon with two small open wounds L sacrum and L buttocks. Pt has an APM/MOMO Mattress overlay and is being positioned with pillows as per tolerance and within protocols. worsening despite medical efforts will cont to provide therapy Tx.Plan: Apply Cavilon Skin Barrier to both ears Daily and prn. Apply Moisture Barrier Paste to Sacrum,R and L Buttocks. Cover with Optifoam drsgs. Change every 3 days and PRN. Apply Cavilon Skin Barrier to R and L trochanter. Cover each site with Optifoam drsgs.Change every 7 days and PRN. Apply Cavilon Skin Barrier to both heels. Cover each heel with Optifoam drsg. Change every 7 days and prn. Off-load heels with pillow. Reposition at least every 2hours or as tolerated. APM/MOMO Mattress overlay. (8) COVID-19 Assessment & Plan: COVID + c diff negative febrile leukocytosis renal insufficiency see above cont resp care Rx as per ID worsening on vent support now cxr noted on pressors prognosis guarded repeat covid ++ weaning vent and pressors off slowly showing improvement Yaniv Mast July 03, 2019 10:54
--- NOTE | 2019-07-03 11:04 | Hematology/Onc Progress Note ---
Assessment/Plan Assessment/Plan Assessment and Recs: # Anemia of chronic disease, likely related ot underlying kidney disease has COIVD19++++++ --> hgb trend 9-->8-->7.3-->7.9-->6.8->9.5-->10->8.3-->7.7-->7.1-->8.9->8.8->7.7 -->8.1 ->7.9-->7.7 -->8.2-->8.1 -->7.9-->8.5 --> transfuse as needed, hgb goal >7 --> no evidence of hemolysis --> peripheral smear has been reviewed --> epogen started three x a week ==>> transfuse 06/08, 06/15, # Leukocytosis likely related to suspected COVID-19 virus infection --> completed plaquenil --> trend smear as needed --> initially 4-->11-->14.5-->21-->26-->21->24--.28-->23-->19-->16.2-->21--> 11.2 -->12.5-->12.3-->12.4 --> pulm is aware --> on abx cefepime/vanc->zosyn/vanc --> pressors as needed --> 06/27 covid 19++ # Thrombocytopenia/Lymphopenia --> likely related to covid19 --> plt 129k-->186k-->251-->285-->384 -->430 # Respiratory failure with covid19+ --> s/p vent # Possible Pneumonia --> abx completed # Cardiomegaly # Transaminitis with Elevated AST # COPD # Chronic Kidney Disease --> per renal hd --> s/p right femoral cath 07/02 # Hypertension # Dvt ppx lovenox Appreciate consultation and dw Rn Subjective Allergies: Coded Allergies: No Known Allergies (Unverified , 05/28/19) Subjective 06/01 nv, extremely agitated, not allowing labs draws, no night sweats, cbc ordered 06/02 confused, restraints, on abx and plaquenil, hgb 7.9, nrb 15 L 06/03 is with nonrebreather, but not compliant, remains confused 06/05 no bleeding, labs noted, no major bleeding, otherwise comfortable 06/06 labs reviewed, no bleeding, meds noted, no night sweats, on levo and nonrebreather 06/07 labs noted, no bleeding, meds reviewed, no bleeding, wbc higher 06/08 to get 2 units prbc, no night sweats, meds reviewed 06/09 is on cefepime and vanc, labs noted, ernesto Rn, no bleeding 06/10 no major changes, labs reviewed, wbc 28k, on abx, cefepime 06/12 remains in icu, labs noted, no night sweats or bleeding 06/13 sluggish pupils, remains agitated, per psych, no bleding, on vent, wbc sitll high 06/14 still confused, remains on vent, with ng, running nepro, on pressors 06/15 icu, febrile, non verbal, hgb 7.1, blood pending, completed plaq 06/16 remains in the icu, nonverbal, plan for hd tomorrow, ernesto rn 06/17 in icu, on pressor, nonverbal, on abx, no bleeding 06/19 no bleeding, nonverbal in icu, hgb is 7.7 06/20 on zosyn, tube feeds, vent, labs noted, in icu, nv 06/21 gettng hd as per renal, in icu, nv, no bleeding, tfs 06/22 icu, cxr with slight improvement, cooling blanket, weaning today 06/23 wewaning, in icu, on vent, abx, and pressors as needed, labs noted 06/24 failed weaning, off abx, completed plaquenil, hgb 8.1 06/26 icu, weaning for this am, afebrile, hgb 8 06/27 in icu, remains comotose, weaning started on peep, no night sweats 06/28 weaning today, off abx, restraints, no distress, h/h stable 06/29 covid 19+, failed weaning, no blood transfusion needed 06/30 icu, on vent, labs reviewed, no distress 07/01 in icu, may need trach, remains on hd per renal, labs noted 07/02 s/p right fem cath, failed wean, no new orders, h/h stable Objective Objective Current Medications Medications (Trade) Dose Ordered Sig/Anthony Route PRN Reason Start Time Stop Time Status Last Admin Dose Admin Acetaminophen (Tylenol) 650 mg Q4H PRN NG Temp >100.5 06/13/19 11:00 07/13/19 10:59 07/01/19 08:32 Albuterol Sulfate (Proventil MDI) 2 puff Q4HRT INH 06/06/19 23:00 08/30/19 18:59 07/03/19 07:46 Chlorhexidine Gluconate (Michelle-Hex 2%) 1 applic DAILY@2000 TOPIC 06/07/19 20:00 09/05/19 19:59 07/02/19 20:11 Dextrose (Dextrose 50%) 25 ml Q30M PRN IV Hypoglycemia 06/20/19 19:30 09/18/19 19:29 Dextrose (Dextrose 50%) 50 ml Q30M PRN IV Hypoglycemia 06/20/19 19:30 09/18/19 19:29 Docusate Sodium (Colace) 100 mg THREE TIMES A DAY NG 06/07/19 13:00 07/07/19 12:59 07/03/19 09:53 Dopamine HCl/ Dextrose 250 ml @ 0 mls/hr Q24H PRN IV For hypotension 06/13/19 08:15 09/11/19 08:14 Enoxaparin Sodium (Lovenox) 30 mg DAILY SUBQ 06/07/19 09:00 08/27/19 08:59 07/03/19 09:54 Epoetin Aftab (Epoetin Aftab(ESRD on dialysis)) 10,000 unit FRI-FRI-FRI SUBQ 06/07/19 21:00 08/31/19 20:59 07/02/19 21:47 Fentanyl Citrate 250 ml @ 0 mls/hr Q24H IV 06/24/19 06:00 09/22/19 05:59 07/02/19 11:50 Hydralazine HCl (Apresoline) 10 mg Q4H PRN IV Blood pressure over 160 systol 06/07/19 10:15 09/05/19 10:14 Insulin Aspart (NovoLOG) EVERY 6 HOURS SUBQ 06/21/19 00:00 09/19/19 00:00 07/03/19 05:34 Metoclopramide HCl (Reglan) 5 mg Q8H PRN IVP Nausea & Vomiting 06/18/19 12:00 07/18/19 11:59 06/19/19 00:50 Midodrine (Pro-Amatine) 10 mg THREE TIMES A DAY NG 06/09/19 13:00 09/07/19 12:59 07/03/19 09:53 Norepinephrine Bitartrate 8 mg/ Dextrose 283 ml @ 0 mls/hr Q24H IV 06/23/19 23:00 07/23/19 22:59 06/25/19 14:38 Pantoprazole (Protonix) 40 mg DAILY IVP 06/19/19 09:00 07/19/19 08:59 07/03/19 09:52 Piperacillin Sod/ Tazobactam Sod 2.25 gm/Sodium Chloride 55 ml @ 110 mls/hr Q8HR IVPB 07/01/19 14:00 07/06/19 13:59 07/03/19 05:32 Sevelamer Carbonate (Renvela) 1,600 mg Q8HR NG 06/25/19 22:00 09/05/19 12:59 07/03/19 05:32 Vancomycin HCl (Vanco rx to dose) 1 ea DAILY PRN MISC Per rx protocol 07/01/19 11:00 07/31/19 10:59 Last 24 Hour Vital Signs Date Time Temp Pulse Resp B/P (MAP) Pulse Ox O2 Delivery O2 Flow Rate FiO2 07/03/19 08:45 99 07/03/19 07:11 73 27 99 Mechanical Ventilator 30 75 28 30 07/03/19 07:00 80 26 137/70 (92) 100 07/03/19 06:30 75 26 07/03/19 06:00 98.3 81 26 109/66 (80) 100 07/03/19 06:00 26 109/64 Mechanical Ventilator 30 07/03/19 05:00 26 123/68 Mechanical Ventilator 30 07/03/19 05:00 83 26 123/68 (86) 100 07/03/19 04:31 79 27 98 Mechanical Ventilator 30 77 29 30 07/03/19 04:00 Mechanical Ventilator 07/03/19 04:00 30 07/03/19 04:00 26 109/62 Mechanical Ventilator 30 07/03/19 04:00 79 26 109/62 (78) 100 07/03/19 04:00 79 07/03/19 03:00 28 116/72 Mechanical Ventilator 30 07/03/19 03:00 76 26 116/72 (87) 100 07/03/19 02:00 24 128/66 Mechanical Ventilator 30 07/03/19 02:00 78 24 128/66 (86) 100 07/03/19 01:00 26 121/72 Mechanical Ventilator 30 07/03/19 01:00 76 26 121/72 (88) 100 07/03/19 00:15 26 86/64 Mechanical Ventilator 30 07/03/19 00:00 26 102/63 Mechanical Ventilator 30 07/03/19 00:00 Mechanical Ventilator 07/03/19 00:00 98.9 74 26 102/63 (76) 100 07/02/19 23:00 78 26 107/61 (76) 100 07/02/19 23:00 26 107/61 Mechanical Ventilator 30 07/02/19 23:00 115/72 07/02/19 22:50 86 27 100 Mechanical Ventilator 30 90 29 30 07/02/19 22:00 27 111/61 Mechanical Ventilator 30 07/02/19 22:00 72 28 111/61 (78) 100 07/02/19 21:00 70 27 95/58 (70) 100 07/02/19 21:00 26 95/50 Mechanical Ventilator 30 07/02/19 20:00 76 07/02/19 20:00 30 07/02/19 20:00 26 111/63 Mechanical Ventilator 30 07/02/19 20:00 99.4 80 26 111/63 (79) 99 07/02/19 20:00 Mechanical Ventilator 07/02/19 19:41 79 26 100 Mechanical Ventilator 30 78 27 30 07/02/19 19:00 79 0 103/60 (74) 100 07/02/19 19:00 26 103/60 Mechanical Ventilator 30 07/02/19 18:00 25 110/63 Mechanical Ventilator 07/02/19 18:00 89 26 126/105 (112) 99 07/02/19 17:00 79 27 93/56 (68) 95 07/02/19 17:00 25 108/64 Mechanical Ventilator 07/02/19 16:06 78 07/02/19 16:00 Mechanical Ventilator 07/02/19 16:00 30 07/02/19 16:00 17 87/57 Mechanical Ventilator 07/02/19 16:00 80 26 87/57 (67) 95 07/02/19 15:30 81 26 85/61 (69) 99 07/02/19 15:15 82 26 94/53 (67) 99 07/02/19 15:00 85 26 87/58 (68) 99 07/02/19 15:00 26 87/58 Mechanical Ventilator 07/02/19 14:45 93 28 100 Mechanical Ventilator 30 89 27 30 07/02/19 14:00 76 26 87/38 (54) 99 07/02/19 13:30 102 0 108/67 (81) 99 07/02/19 13:15 110 15 127/75 (92) 99 07/02/19 13:00 100 19 108/67 (81) 100 07/02/19 13:00 104 27 114/78 (90) 100 07/02/19 12:45 97 26 88/58 (68) 99 07/02/19 12:30 110 30 136/87 (103) 100 07/02/19 12:15 99 26 113/72 (86) 100 07/02/19 12:00 30 07/02/19 12:00 Mechanical Ventilator 07/02/19 12:00 99.4 95 21 119/79 (92) 100 07/02/19 12:00 98 07/02/19 12:00 24 119/79 Mechanical Ventilator 07/02/19 12:00 99 23 119/79 (92) 100 07/02/19 11:50 22 115/60 07/02/19 11:00 74 0 127/63 (84) 100 07/02/19 10:46 71 26 99 Mechanical Ventilator 30 67 26 30 07/02/19 10:30 72 0 107/62 (77) 99 07/02/19 10:00 18 107/62 Mechanical Ventilator 07/02/19 10:00 72 3 127/65 (85) 100 07/02/19 09:30 72 0 136/66 (89) 100 07/02/19 09:00 99.6 74 0 129/73 (91) 100 07/02/19 08:30 75 0 136/76 (96) 100 07/02/19 08:00 30 07/02/19 08:00 80 07/02/19 08:00 Mechanical Ventilator 07/02/19 08:00 81 6 146/73 (97) 100 07/02/19 07:19 99 07/02/19 07:19 75 26 99 Mechanical Ventilator 30 86 26 30 07/02/19 07:00 77 118/69 (85) 07/02/19 06:30 82 25 07/02/19 06:00 26 135/69 Mechanical Ventilator 30 07/02/19 06:00 82 24 121/78 (92) 99 07/02/19 05:00 86 26 114/68 (83) 100 07/02/19 05:00 26 114/68 Mechanical Ventilator 30 07/02/19 04:14 85 07/02/19 04:14 30 07/02/19 04:00 Mechanical Ventilator 07/02/19 04:00 100.0 89 26 138/97 (111) 99 07/02/19 04:00 26 138/97 Mechanical Ventilator 30 07/02/19 03:04 87 27 100 Mechanical Ventilator 30 88 26 30 07/02/19 03:00 86 26 156/90 (112) 99 07/02/19 03:00 26 156/90 Mechanical Ventilator 30 07/02/19 02:00 81 26 137/71 (93) 99 07/02/19 02:00 26 137/71 Mechanical Ventilator 30 07/02/19 01:00 93 36 152/71 (98) 99 07/02/19 01:00 36 152/71 Mechanical Ventilator 30 07/02/19 00:00 100.3 85 27 147/79 (101) 100 07/02/19 00:00 26 147/79 Mechanical Ventilator 30 07/02/19 00:00 Mechanical Ventilator 07/01/19 23:05 89 26 100 Mechanical Ventilator 30 101 30 30 07/01/19 23:00 25 127/67 Mechanical Ventilator 30 07/01/19 23:00 127/67 07/01/19 23:00 90 26 127/67 (87) 100 07/01/19 22:00 90 8 155/74 (101) 99 07/01/19 22:00 24 155/74 Mechanical Ventilator 30 07/01/19 21:00 87 13 155/75 (101) 100 07/01/19 21:00 26 155/75 Mechanical Ventilator 30 07/01/19 20:00 99.8 85 26 136/65 (88) 100 07/01/19 20:00 26 136/65 Mechanical Ventilator 30 07/01/19 20:00 30 07/01/19 20:00 70 07/01/19 20:00 Mechanical Ventilator 07/01/19 19:37 91 27 100 Mechanical Ventilator 30 87 26 30 07/01/19 19:00 84 0 138/72 (94) 99 07/01/19 18:00 95 22 143/75 (97) 100 07/01/19 17:00 93 5 135/63 (87) 100 07/01/19 16:00 85 24 131/70 (90) 100 07/01/19 16:00 87 07/01/19 16:00 30 07/01/19 16:00 Mechanical Ventilator 07/01/19 15:20 89 26 100 Mechanical Ventilator 30 87 26 30 07/01/19 15:00 81 0 131/77 (95) 100 07/01/19 14:30 85 8 128/74 (92) 100 07/01/19 14:00 91 13 127/69 (88) 100 07/01/19 13:00 98 0 104/59 (74) 100 07/01/19 12:30 102 0 112/65 (81) 99 07/01/19 12:00 Mechanical Ventilator 07/01/19 12:00 30 07/01/19 12:00 108 07/01/19 12:00 98.1 104 20 127/71 (89) 99 07/01/19 12:00 21 112/65 Mechanical Ventilator 07/01/19 11:30 104 0 124/67 (86) 99 07/01/19 11:00 104 30 132/71 (91) 100 07/01/19 11:00 30 154/60 Mechanical Ventilator Intake and Output 07/02/19 07/03/19 19:00 07:00 Intake Total 530 ml 785 ml Output Total 3055 ml 70 ml Balance -2525 ml 715 ml Free Water 260 ml IV Total 180 ml 175 ml Tube Feeding 315 ml 190 ml Other 35 ml 160 ml Output Urine Total 55 ml 70 ml Hemodialysis UF 3000 ml # Bowel Movements 3 2 Labs Test 07/01/19 03:50 07/02/19 04:00 07/03/19 04:00 White Blood Count 12.3 K/UL (4.8-10.8) 13.3 K/UL (4.8-10.8) 12.4 K/UL (4.8-10.8) Red Blood Count 2.71 M/UL (4.70-6.10) 2.70 M/UL (4.70-6.10) 2.90 M/UL (4.70-6.10) Hemoglobin 8.1 G/DL (14.2-18.0) 7.9 G/DL (14.2-18.0) 8.5 G/DL (14.2-18.0) Hematocrit 25.4 % (42.0-52.0) 25.1 % (42.0-52.0) 26.9 % (42.0-52.0) Mean Corpuscular Volume 93 FL (80-99) 93 FL (80-99) 93 FL (80-99) Mean Corpuscular Hemoglobin 29.7 PG (27.0-31.0) 29.3 PG (27.0-31.0) 29.2 PG (27.0-31.0) Mean Corpuscular Hemoglobin Concent 31.8 G/DL (32.0-36.0) 31.5 G/DL (32.0-36.0) 31.5 G/DL (32.0-36.0) Red Cell Distribution Width 17.6 % (11.6-14.8) 16.7 % (11.6-14.8) 17.0 % (11.6-14.8) Platelet Count 430 K/UL (150-450) 470 K/UL (150-450) 446 K/UL (150-450) Mean Platelet Volume 6.1 FL (6.5-10.1) 6.1 FL (6.5-10.1) 6.1 FL (6.5-10.1) Neutrophils (%) (Auto) 80.5 % (45.0-75.0) % (45.0-75.0) 76.5 % (45.0-75.0) Lymphocytes (%) (Auto) 10.0 % (20.0-45.0) % (20.0-45.0) 11.3 % (20.0-45.0) Monocytes (%) (Auto) 8.0 % (1.0-10.0) % (1.0-10.0) 8.5 % (1.0-10.0) Eosinophils (%) (Auto) 0.5 % (0.0-3.0) % (0.0-3.0) 2.1 % (0.0-3.0) Basophils (%) (Auto) 1.0 % (0.0-2.0) % (0.0-2.0) 1.6 % (0.0-2.0) Sodium Level 144 MMOL/L (136-145) 148 MMOL/L (136-145) 141 MMOL/L (136-145) Potassium Level 3.6 MMOL/L (3.5-5.1) 4.0 MMOL/L (3.5-5.1) 3.7 MMOL/L (3.5-5.1) Chloride Level 101 MMOL/L (98-107) 104 MMOL/L (98-107) 98 MMOL/L (98-107) Carbon Dioxide Level 29 MMOL/L (21-32) 28 MMOL/L (21-32) 26 MMOL/L (21-32) Anion Gap 14 mmol/L (5-15) 16 mmol/L (5-15) 17 mmol/L (5-15) Blood Urea Nitrogen 68 mg/dL (7-18) 78 mg/dL (7-18) 59 mg/dL (7-18) Creatinine 8.4 MG/DL (0.55-1.30) 9.5 MG/DL (0.55-1.30) 7.9 MG/DL (0.55-1.30) Estimat Glomerular Filtration Rate 6.4 mL/min (>60) 5.6 mL/min (>60) 6.9 mL/min (>60) Glucose Level 138 MG/DL (74-106) 119 MG/DL (74-106) 114 MG/DL (74-106) Uric Acid 8.7 MG/DL (2.6-7.2) Calcium Level 9.5 MG/DL (8.5-10.1) 8.7 MG/DL (8.5-10.1) 8.8 MG/DL (8.5-10.1) Phosphorus Level 4.6 MG/DL (2.5-4.9) 5.6 MG/DL (2.5-4.9) 5.1 MG/DL (2.5-4.9) Magnesium Level 2.9 MG/DL (1.8-2.4) 3.2 MG/DL (1.8-2.4) 2.4 MG/DL (1.8-2.4) Total Bilirubin 0.4 MG/DL (0.2-1.0) 0.4 MG/DL (0.2-1.0) 0.5 MG/DL (0.2-1.0) Aspartate Amino Transf (AST/SGOT) 25 U/L (15-37) 25 U/L (15-37) 27 U/L (15-37) Alanine Aminotransferase (ALT/SGPT) 10 U/L (12-78) 10 U/L (12-78) 13 U/L (12-78) Alkaline Phosphatase 87 U/L (46-116) 79 U/L (46-116) 82 U/L (46-116) C-Reactive Protein, Quantitative 19.6 mg/dL (0.00-0.90) 9.2 mg/dL (0.00-0.90) Pro-B-Type Natriuretic Peptide > 79408 pg/mL (0-125) 14098 pg/mL (0-125) > 52657 pg/mL (0-125) Total Protein 8.2 G/DL (6.4-8.2) 8.1 G/DL (6.4-8.2) 8.8 G/DL (6.4-8.2) Albumin 2.1 G/DL (3.4-5.0) 2.0 G/DL (3.4-5.0) 2.1 G/DL (3.4-5.0) Globulin 6.1 g/dL 6.1 g/dL 6.7 g/dL Albumin/Globulin Ratio 0.3 (1.0-2.7) 0.3 (1.0-2.7) 0.3 (1.0-2.7) Differential Total Cells Counted 100 Neutrophils % (Manual) 81 % (45-75) Lymphocytes % (Manual) 13 % (20-45) Monocytes % (Manual) 4 % (1-10) Eosinophils % (Manual) 1 % (0-3) Basophils % (Manual) 1 % (0-2) Band Neutrophils 0 % (0-8) Platelet Estimate Adequate Platelet Morphology Normal Hypochromasia 3+ Anisocytosis 1+ Random Vancomycin Level 30.0 ug/mL 25.0 ug/mL Height (Feet): 6 Height (Inches): 1.00 Weight (Pounds): 218 Objective Sp02 EP Interpretation: reviewed General: nv, confused, sedated Heent: bilateral eye normal inspection, bilateral eye PERRL ++Ng Respiratory: normal breath sounds, no respiratory distress, intubated+++ Cardiovascular: regular rate, rhythm, no edema Gastrointestinal: normal inspection, soft, non-distended Rectal: deferred Musculoskeletal: normal range of motion, non-tender, R fem cath++ Neurologic: alert, motor strength/tone normal, sensory intact, responsive, speech normal Skin: Decubitus/Ulcer - See RN skin exam. : jamaal+ Greg Cabral MD July 03, 2019 11:04
--- NOTE | 2019-07-03 11:51 | Nephrology Progress Note ---
Assessment/Plan Problem List: (1) CASSANDRA (acute kidney injury) (2) Anemia in chronic kidney disease (CKD) (3) HTN (hypertension) (4) COVID-19 Assessment Acute renal failure most likely superimposed on chronic kidney disease Suspected COVID-19 virus infection Possible Pneumonia, lymphopenia, elevated AST Cardiomegaly, possible CHF COPD Hypertension Anemia, most likely related to chronic kidney disease Plan July 02: Patient was dialyzed yesterday and due for dialysis tomorrow Stable from renal standpoint W on dialysis Continue per consultants, weaning....... etc. July 01: Dialysis today Other status unchanged June 30: Due for dialysis tomorrow Remains intubated on ventilator Labs and medication reviewed Discussed with RN Stable from renal standpoint of view June 29: Dialyzed yesterday Due for dialysis tomorrow Stable from renal standpoint to view Keeps failing weaning process June 28: Patient due for dialysis today Stable from renal standpoint to view Continue per consultants June 27: Labs reviewed Due due for dialysis June 28 Discussed with SHANIQUE Silverman per consultants Remains intubated on ventilator June 26 Labs reviewed Dialyzed yesterday Started on weaning today Continue to monitor renal parameters June 16: On dialysis now Potassium supplement implemented Continue per consultants Next dialysis June 27June 15: Status unchanged Dialyzed yesterday will dialyze again tomorrow Potassium supplements given Discussed with RN June 14: Due dialysis today Status: Remains intubated on ventilator June 13: Status unchanged Dialyzed yesterday and duefordialysistomorrow Serum sodium stable today June 21 Remains intubated on ventilator Due dialysis today Emphasized high sodium bath for dialysis June 20: Remains intubated on ventilator Dialyzed June 19 next dialysis June 21 Serum sodium 128, will give 250 cc 3% saline Remains full code Discussed with RN Iron panel ordered June 19: Discussed with RN. Patient due for dialysis today. Continue pulmonary support. Remains full code. June 18: Patient dialyzed yesterday June 17 Serum sodium improved but still low Arrange for dialysis tomorrow June 19 Continue per consultants June 17: Due for dialysis today Today's lab reviewed, low serum sodium noted, Emphasized on high sodium bath to dialysis nurse Discussed with SHANIQUE Yuen June 7: Dialyzed yesterday Remains intubated Labs reviewed, serum sodium 131 Plan to dialyze tomorrow June 17 with high sodium bath Discussed with SHANIQUE Yuen June 6: Due for dialysis today Labs reviewed Discussed with RN Transfuse 1 unit of packed RBCs today for low hemoglobin of 7.1 June 5: Blood pressure well maintained Receive dialysis June 13 next hemodialysis June 15June 4: Discussed with RN in ICU Patient did not receive proper dialysis yesterday due to dialysis catheter malfunction Catheter to be adjusted today and dialyzed to be resumed today Continue per consultants Positive for COVID 28 June 2: Patient now intubated on mechanical ventilation Discussed with RN Alpa, today June 12 Patient received dialysis yesterday June 10 next hemodialysis June 12 Blood pressure better maintained Today's labs reviewed Continue per consultants Previously patient received dialysis last evening June 05, next dialysis June 07 which was incomplete due to patient's hypotension Will start on midodrine for blood pressure support. Meanwhile continue other pressors as needed Previously Patient is doing poorly, septic, white blood cells are rising, Hypotension somewhat improved We will keep n.p.o. , NG tube for medications, and change medication to IV as needed Patient remains full code Monitor vancomycin level Previously: Patient pulled out his femoral catheter yesterday June 03 which was reinserted by Dr. Mast Patient scheduled for dialysis again June 04, which again was not done due to dialysis nurse citing catheter malfunction Meanwhile continue management per ID, pulmonary , and psych. Meanwhile white blood cell count is rising. Patient blood pressure borderline low. Will check ABG Previously May 31 : I believe patient need dialysis treatment He however needs to competency assessment if can make decisions or not I will communicate with Dr. Mulligan Previously: Per pulmonary and ID advice Adjust blood pressure medication Renal diet Anemia work-up 2D echocardiogram refused Kidney ultrasound refused Jules catheter Urine studies Per orders Subjective ROS Limited/Unobtainable: Yes Objective Objective Last 24 Hour Vital Signs Date Time Temp Pulse Resp B/P (MAP) Pulse Ox O2 Delivery O2 Flow Rate FiO2 07/03/19 10:54 112 27 98 Mechanical Ventilator 30 98 27 30 07/03/19 08:45 99 07/03/19 07:11 73 27 99 Mechanical Ventilator 30 75 28 30 07/03/19 07:00 80 26 137/70 (92) 100 07/03/19 06:30 75 26 07/03/19 06:00 98.3 81 26 109/66 (80) 100 07/03/19 06:00 26 109/64 Mechanical Ventilator 30 07/03/19 05:00 26 123/68 Mechanical Ventilator 30 07/03/19 05:00 83 26 123/68 (86) 100 07/03/19 04:31 79 27 98 Mechanical Ventilator 30 77 29 30 07/03/19 04:00 Mechanical Ventilator 07/03/19 04:00 30 07/03/19 04:00 26 109/62 Mechanical Ventilator 30 07/03/19 04:00 79 26 109/62 (78) 100 07/03/19 04:00 79 07/03/19 03:00 28 116/72 Mechanical Ventilator 30 07/03/19 03:00 76 26 116/72 (87) 100 07/03/19 02:00 24 128/66 Mechanical Ventilator 30 07/03/19 02:00 78 24 128/66 (86) 100 07/03/19 01:00 26 121/72 Mechanical Ventilator 30 07/03/19 01:00 76 26 121/72 (88) 100 07/03/19 00:15 26 86/64 Mechanical Ventilator 30 07/03/19 00:00 26 102/63 Mechanical Ventilator 30 07/03/19 00:00 Mechanical Ventilator 07/03/19 00:00 98.9 74 26 102/63 (76) 100 07/02/19 23:00 78 26 107/61 (76) 100 07/02/19 23:00 26 107/61 Mechanical Ventilator 30 07/02/19 23:00 115/72 07/02/19 22:50 86 27 100 Mechanical Ventilator 30 90 29 30 07/02/19 22:00 27 111/61 Mechanical Ventilator 30 07/02/19 22:00 72 28 111/61 (78) 100 07/02/19 21:00 70 27 95/58 (70) 100 07/02/19 21:00 26 95/50 Mechanical Ventilator 30 07/02/19 20:00 76 07/02/19 20:00 30 07/02/19 20:00 26 111/63 Mechanical Ventilator 30 07/02/19 20:00 99.4 80 26 111/63 (79) 99 07/02/19 20:00 Mechanical Ventilator 07/02/19 19:41 79 26 100 Mechanical Ventilator 30 78 27 30 07/02/19 19:00 79 0 103/60 (74) 100 07/02/19 19:00 26 103/60 Mechanical Ventilator 30 07/02/19 18:00 25 110/63 Mechanical Ventilator 07/02/19 18:00 89 26 126/105 (112) 99 07/02/19 17:00 79 27 93/56 (68) 95 07/02/19 17:00 25 108/64 Mechanical Ventilator 07/02/19 16:06 78 07/02/19 16:00 Mechanical Ventilator 07/02/19 16:00 30 07/02/19 16:00 17 87/57 Mechanical Ventilator 07/02/19 16:00 80 26 87/57 (67) 95 07/02/19 15:30 81 26 85/61 (69) 99 07/02/19 15:15 82 26 94/53 (67) 99 07/02/19 15:00 85 26 87/58 (68) 99 07/02/19 15:00 26 87/58 Mechanical Ventilator 07/02/19 14:45 93 28 100 Mechanical Ventilator 30 89 27 30 07/02/19 14:00 76 26 87/38 (54) 99 07/02/19 13:30 102 0 108/67 (81) 99 07/02/19 13:15 110 15 127/75 (92) 99 07/02/19 13:00 100 19 108/67 (81) 100 07/02/19 13:00 104 27 114/78 (90) 100 07/02/19 12:45 97 26 88/58 (68) 99 07/02/19 12:30 110 30 136/87 (103) 100 07/02/19 12:15 99 26 113/72 (86) 100 07/02/19 12:00 30 07/02/19 12:00 Mechanical Ventilator 07/02/19 12:00 99.4 95 21 119/79 (92) 100 07/02/19 12:00 98 07/02/19 12:00 24 119/79 Mechanical Ventilator 07/02/19 12:00 99 23 119/79 (92) 100 07/02/19 11:50 22 115/60 Intake and Output 07/02/19 07/03/19 19:00 07:00 Intake Total 530 ml 785 ml Output Total 3055 ml 70 ml Balance -2525 ml 715 ml Free Water 260 ml IV Total 180 ml 175 ml Tube Feeding 315 ml 190 ml Other 35 ml 160 ml Output Urine Total 55 ml 70 ml Hemodialysis UF 3000 ml # Bowel Movements 3 2 Laboratory Tests 07/03/19 04:00: White Blood Count 12.4H, Red Blood Count 2.90L, Hemoglobin 8.5L, Hematocrit 26.9L, Mean Corpuscular Volume 93, Mean Corpuscular Hemoglobin 29.2, Mean Corpuscular Hemoglobin Concent 31.5L, Red Cell Distribution Width 17.0H, Platelet Count 446, Mean Platelet Volume 6.1L, Neutrophils (%) (Auto) 76.5H, Lymphocytes (%) (Auto) 11.3L, Monocytes (%) (Auto) 8.5, Eosinophils (%) (Auto) 2.1, Basophils (%) (Auto) 1.6, Sodium Level 141, Potassium Level 3.7, Chloride Level 98, Carbon Dioxide Level 26, Anion Gap 17H, Blood Urea Nitrogen 59H, Creatinine 7.9H, Estimat Glomerular Filtration Rate 6.9, Glucose Level 114H, Calcium Level 8.8, Phosphorus Level 5.1H, Magnesium Level 2.4, Total Bilirubin 0.5, Aspartate Amino Transf (AST/SGOT) 27, Alanine Aminotransferase (ALT/SGPT) 13, Alkaline Phosphatase 82, C-Reactive Protein, Quantitative 9.2H, Pro-B-Type Natriuretic Peptide > 13786W, Total Protein 8.8H, Albumin 2.1L, Globulin 6.7, Albumin/Globulin Ratio 0.3L, Random Vancomycin Level 25.0 Height (Feet): 6 Height (Inches): 1.00 Weight (Pounds): 218 General Appearance: no apparent distress EENT: other - Continue to be on ventilator Cardiovascular: tachycardia Respiratory/Chest: decreased breath sounds Abdomen: distended Objective No change Mic Cole MD July 03, 2019 11:51
--- NOTE | 2019-07-03 13:41 | Cardiac Electrophysiology PN ---
Assessment/Plan Assessment/Plan 1. Elevated troponin. Low level and flat Due to renal failure. On Aspirin. EF 60%. 2. S/P Septic shock. Off Levo 3. ESRD, on HD per Dr. Cole. 4. COVID-19 positive pneumonia. On the Vent with 30% Fio2. Fu by Dr. Mckeon. Failed weaning 5. MRSA carrier. 6. COPD. 7. Anemia. 8. Depression. DW RN Subjective Subjective Is Covid positive x 3 in isolation in ICU, on vent on 30% Fio2, PEEP 5. Failed weaning. Off pressors. Had HD on 06/28. Objective Last 24 Hour Vital Signs Date Time Temp Pulse Resp B/P (MAP) Pulse Ox O2 Delivery O2 Flow Rate FiO2 07/03/19 12:05 30 07/03/19 12:00 Mechanical Ventilator 07/03/19 11:00 87 28 119/64 (82) 100 07/03/19 10:54 112 27 98 Mechanical Ventilator 30 98 27 30 07/03/19 10:00 98 25 128/66 (86) 100 07/03/19 09:00 98 25 128/66 (86) 100 07/03/19 08:45 99 07/03/19 08:00 98.0 101 24 91/62 (72) 100 07/03/19 08:00 Mechanical Ventilator 07/03/19 08:00 30 07/03/19 07:11 73 27 99 Mechanical Ventilator 30 75 28 30 07/03/19 07:00 80 26 137/70 (92) 100 07/03/19 06:30 75 26 07/03/19 06:00 98.3 81 26 109/66 (80) 100 07/03/19 06:00 26 109/64 Mechanical Ventilator 30 07/03/19 05:00 26 123/68 Mechanical Ventilator 30 07/03/19 05:00 83 26 123/68 (86) 100 07/03/19 04:31 79 27 98 Mechanical Ventilator 30 77 29 30 07/03/19 04:00 Mechanical Ventilator 07/03/19 04:00 30 07/03/19 04:00 26 109/62 Mechanical Ventilator 30 07/03/19 04:00 79 26 109/62 (78) 100 07/03/19 04:00 79 07/03/19 03:00 28 116/72 Mechanical Ventilator 30 07/03/19 03:00 76 26 116/72 (87) 100 07/03/19 02:00 24 128/66 Mechanical Ventilator 30 07/03/19 02:00 78 24 128/66 (86) 100 07/03/19 01:00 26 121/72 Mechanical Ventilator 30 07/03/19 01:00 76 26 121/72 (88) 100 07/03/19 00:15 26 86/64 Mechanical Ventilator 30 07/03/19 00:00 26 102/63 Mechanical Ventilator 30 07/03/19 00:00 Mechanical Ventilator 07/03/19 00:00 98.9 74 26 102/63 (76) 100 07/02/19 23:00 78 26 107/61 (76) 100 07/02/19 23:00 26 107/61 Mechanical Ventilator 30 07/02/19 23:00 115/72 07/02/19 22:50 86 27 100 Mechanical Ventilator 30 90 29 30 07/02/19 22:00 27 111/61 Mechanical Ventilator 30 07/02/19 22:00 72 28 111/61 (78) 100 07/02/19 21:00 70 27 95/58 (70) 100 07/02/19 21:00 26 95/50 Mechanical Ventilator 30 07/02/19 20:00 76 07/02/19 20:00 30 07/02/19 20:00 26 111/63 Mechanical Ventilator 30 07/02/19 20:00 99.4 80 26 111/63 (79) 99 07/02/19 20:00 Mechanical Ventilator 07/02/19 19:41 79 26 100 Mechanical Ventilator 30 78 27 30 07/02/19 19:00 79 0 103/60 (74) 100 07/02/19 19:00 26 103/60 Mechanical Ventilator 30 07/02/19 18:00 25 110/63 Mechanical Ventilator 07/02/19 18:00 89 26 126/105 (112) 99 07/02/19 17:00 79 27 93/56 (68) 95 07/02/19 17:00 25 108/64 Mechanical Ventilator 07/02/19 16:06 78 07/02/19 16:00 Mechanical Ventilator 07/02/19 16:00 30 07/02/19 16:00 17 87/57 Mechanical Ventilator 07/02/19 16:00 80 26 87/57 (67) 95 07/02/19 15:30 81 26 85/61 (69) 99 07/02/19 15:15 82 26 94/53 (67) 99 07/02/19 15:00 85 26 87/58 (68) 99 07/02/19 15:00 26 87/58 Mechanical Ventilator 07/02/19 14:45 93 28 100 Mechanical Ventilator 30 89 27 30 07/02/19 14:00 76 26 87/38 (54) 99 Intake and Output 07/02/19 07/03/19 19:00 07:00 Intake Total 530 ml 785 ml Output Total 3055 ml 70 ml Balance -2525 ml 715 ml Free Water 260 ml IV Total 180 ml 175 ml Tube Feeding 315 ml 190 ml Other 35 ml 160 ml Output Urine Total 55 ml 70 ml Hemodialysis UF 3000 ml # Bowel Movements 3 2 Laboratory Tests Test 07/03/19 04:00 White Blood Count 12.4 K/UL (4.8-10.8) H Red Blood Count 2.90 M/UL (4.70-6.10) L Hemoglobin 8.5 G/DL (14.2-18.0) L Hematocrit 26.9 % (42.0-52.0) L Mean Corpuscular Volume 93 FL (80-99) Mean Corpuscular Hemoglobin 29.2 PG (27.0-31.0) Mean Corpuscular Hemoglobin Concent 31.5 G/DL (32.0-36.0) L Red Cell Distribution Width 17.0 % (11.6-14.8) H Platelet Count 446 K/UL (150-450) Mean Platelet Volume 6.1 FL (6.5-10.1) L Neutrophils (%) (Auto) 76.5 % (45.0-75.0) H Lymphocytes (%) (Auto) 11.3 % (20.0-45.0) L Monocytes (%) (Auto) 8.5 % (1.0-10.0) Eosinophils (%) (Auto) 2.1 % (0.0-3.0) Basophils (%) (Auto) 1.6 % (0.0-2.0) Sodium Level 141 MMOL/L (136-145) Potassium Level 3.7 MMOL/L (3.5-5.1) Chloride Level 98 MMOL/L (98-107) Carbon Dioxide Level 26 MMOL/L (21-32) Anion Gap 17 mmol/L (5-15) H Blood Urea Nitrogen 59 mg/dL (7-18) H Creatinine 7.9 MG/DL (0.55-1.30) H Estimat Glomerular Filtration Rate 6.9 mL/min (>60) Glucose Level 114 MG/DL (74-106) H Calcium Level 8.8 MG/DL (8.5-10.1) Phosphorus Level 5.1 MG/DL (2.5-4.9) H Magnesium Level 2.4 MG/DL (1.8-2.4) Total Bilirubin 0.5 MG/DL (0.2-1.0) Aspartate Amino Transf (AST/SGOT) 27 U/L (15-37) Alanine Aminotransferase (ALT/SGPT) 13 U/L (12-78) Alkaline Phosphatase 82 U/L (46-116) C-Reactive Protein, Quantitative 9.2 mg/dL (0.00-0.90) H Pro-B-Type Natriuretic Peptide > 30994 pg/mL (0-125) H Total Protein 8.8 G/DL (6.4-8.2) H Albumin 2.1 G/DL (3.4-5.0) L Globulin 6.7 g/dL Albumin/Globulin Ratio 0.3 (1.0-2.7) L Random Vancomycin Level 25.0 ug/mL Microbiology Date/Time Source Procedure Growth Status 07/01/19 12:00 Blood Blood Culture - Preliminary Staphylococcus Sp Coag Neg Resulted Objective HEAD AND NECK: No JVD. Orally intubated LUNGS: Decreased breath sounds. CARDIOVASCULAR: Regular S1 and S2. Tachycardic. ABDOMEN: Soft. EXTREMITIES: No pitting edema. New Left FV Gio Engle MD July 03, 2019 13:41
[2019-07-03] MEDS ORDERED: Tubing IV Secondary IV ONE ×2 (14:07→14:08)
[2019-07-03] MEDS ORDERED: NS 275ml ONE ×4 (14:07→14:12)
[2019-07-03] MEDS ORDERED: Sterile Water Irrig 1000ml IRRIG ONE (14:12)
[2019-07-03] MEDS: Dyna-Hex 2% Top Sol 2oz TOPIC SCH (20:40)
[2019-07-03] MEDS: NOREPINEPHRINE BITARTRATE IV SCH ×3 (23:00)
[2019-07-03] MEDS: D5W IV SCH ×3 (23:00)
--- NOTE | 2019-07-03 23:46 | Pulmonolgy Critical Care Note ---
Critical Care - Asmt/Plan Assessment/Plan: Pulmonary CCM Progress Note HPI: Patient is a 68 year old man, [facility] resident, admitted c/o shortness of breath, cough, noted to have Covid 19 Pneumonia, Respiratory Failure S/p intubation, CXR improving infiltrates ETT adjusted Septic Shock, pressors off Preserved EF FIO2 40%-50%, P5, adequate O2 sats, remains on ACVC, did not tolerate weaning, less sedated, minimal secretions HD per Renal Hyponatremia stable Anemic ID following See earlier Past Medical History: COPD, CKD, Hypertension, Anemia Allergies: No Known Allergies Improving Pulmonary Status on HD Physical Exam Vital Signs Noted Sedated on ventilator WDWN, no distress HEENT: NCAT,moist mm Chest: Occasional rhonchi Heart: HS1, HS2, RRR Abdomen: SNTND, no masses Extremities: Well perfused, no edema CREDIT CHARGE AUTHORIZER: No focal signs, no seizures, sedated Impression: COVID-19 virus infection Pneumonia Respiratory failure on ventilator Volume overload improving - on HD Hypotension on pressors Cardiomegaly Lymphopenia Elevated AST COPD Chronic Kidney Disease - HD H/o Hypertension Worsening anemia Plan: Antibiotics per ID HD Pressors PRN ACVC - wean as tolerated once pressors reduced/off ABG PRN LEAF BINNER Medications 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 Monitor cultures/viral studies PPX Hemodialysis per Renal Psychiatry following [facility] - [facility] requested for when available, [facility] - not available as yet Laboratory Tests Noted: CXR: Hypoventilatory exam, interstitial changes, cardiomegaly, improving infiltrates Subjective ROS Limited/Unobtainable: No Constitutional: Denies: fever Respiratory: Reports: dry cough, shortness of breath Gastrointestinal/Abdominal: Reports: diarrhea, other - colace was stopped Psychiatric: Reports: other - refuses labs Allergies: Coded Allergies: No Known Allergies (Unverified , 05/28/19) All Systems: reviewed and negative except above Labs noted Critical Care - Objective Last 24 Hour Vital Signs Date Time Temp Pulse Resp B/P (MAP) Pulse Ox O2 Delivery O2 Flow Rate FiO2 07/03/19 21:00 83 27 132/69 (90) 99 07/03/19 20:00 81 27 123/67 (85) 100 07/03/19 20:00 30 07/03/19 20:00 Mechanical Ventilator 07/03/19 19:15 89 27 100 Mechanical Ventilator 30 88 26 30 07/03/19 19:00 86 27 122/66 (84) 98 07/03/19 18:00 84 20 113/63 (80) 100 07/03/19 17:00 82 22 140/67 (91) 100 07/03/19 16:00 Mechanical Ventilator 07/03/19 16:00 30 07/03/19 16:00 85 07/03/19 16:00 97.5 85 23 109/60 (76) 100 07/03/19 15:14 86 26 100 Mechanical Ventilator 30 88 26 30 07/03/19 15:00 85 23 130/70 (90) 100 07/03/19 14:00 87 27 140/67 (91) 100 07/03/19 13:00 98 25 119/66 (83) 100 07/03/19 12:05 30 07/03/19 12:00 97.8 98 25 128/66 (86) 100 07/03/19 12:00 Mechanical Ventilator 07/03/19 11:00 87 28 119/64 (82) 100 07/03/19 10:54 112 27 98 Mechanical Ventilator 30 98 27 30 07/03/19 10:00 98 25 128/66 (86) 100 07/03/19 09:00 98 25 128/66 (86) 100 07/03/19 08:45 99 07/03/19 08:00 98.0 101 24 91/62 (72) 100 07/03/19 08:00 Mechanical Ventilator 07/03/19 08:00 30 07/03/19 07:11 73 27 99 Mechanical Ventilator 30 75 28 30 07/03/19 07:00 80 26 137/70 (92) 100 07/03/19 06:30 75 26 07/03/19 06:00 98.3 81 26 109/66 (80) 100 07/03/19 06:00 26 109/64 Mechanical Ventilator 30 07/03/19 05:00 26 123/68 Mechanical Ventilator 30 07/03/19 05:00 83 26 123/68 (86) 100 07/03/19 04:31 79 27 98 Mechanical Ventilator 30 77 29 30 07/03/19 04:00 Mechanical Ventilator 07/03/19 04:00 30 07/03/19 04:00 26 109/62 Mechanical Ventilator 30 07/03/19 04:00 79 26 109/62 (78) 100 07/03/19 04:00 79 07/03/19 03:00 28 116/72 Mechanical Ventilator 30 07/03/19 03:00 76 26 116/72 (87) 100 07/03/19 02:00 24 128/66 Mechanical Ventilator 30 07/03/19 02:00 78 24 128/66 (86) 100 07/03/19 01:00 26 121/72 Mechanical Ventilator 30 07/03/19 01:00 76 26 121/72 (88) 100 07/03/19 00:15 26 86/64 Mechanical Ventilator 30 07/03/19 00:00 26 102/63 Mechanical Ventilator 30 07/03/19 00:00 Mechanical Ventilator 07/03/19 00:00 98.9 74 26 102/63 (76) 100 Micro: Microbiology Date/Time Source Procedure Growth Status 07/01/19 12:00 Blood Blood Culture - Preliminary Staphylococcus Sp Coag Neg Resulted Accucheck: 154 Critical Care - Subjective ROS Limited/Unobtainable: No Condition: improving FI02: 30 Vent Support Breath Rate: 26 Vent Support Mode: AC Vent Tidal Volume: 500 Sputum Amount: Moderate PEEP: 5.0 PIP: 26 Tube Feeding Amount: 35 I&O: Intake and Output 07/02/19 07/03/19 19:00 07:00 Intake Total 530 ml 785 ml Output Total 3055 ml 70 ml Balance -2525 ml 715 ml Free Water 260 ml IV Total 180 ml 175 ml Tube Feeding 315 ml 190 ml Other 35 ml 160 ml Output Urine Total 55 ml 70 ml Hemodialysis UF 3000 ml # Bowel Movements 3 2 ET-Tube: 7.5 ET Position: 26 Arturo Mckeon MD July 03, 2019 23:46
[2019-07-04] VITALS (24 sets, daily range): BP systolic 95–143; BP diastolic 59–83
[2019-07-04] MEDS: Albuterol 90mcg Inhaler 8gm INH SCH ×6 (03:27→22:49)
[2019-07-04 05:34] LABS: BASOPHILS % (AUTO) 0.5 % (0.0-2.0); HEMATOCRIT 27.2 % (42.0-52.0); HEMOGLOBIN 8.5 G/DL (14.2-18.0); LYMPHOCYTES % (AUTO) 11.1 % (20.0-45.0); MEAN CORPUSCULAR VOLUME 92 FL (80-99); NEUTROPHILS % (AUTO) 81.4 % (45.0-75.0); PLATELET COUNT 491 K/UL (150-450); RED BLOOD COUNT 2.95 M/UL (4.70-6.10); RED CELL DISTRIBUTION WIDTH 16.7 % (11.6-14.8); WHITE BLOOD COUNT 13.1 K/UL (4.8-10.8)
[2019-07-04 05:51] LABS: ANION GAP 18 mmol/L (5-15); BLOOD UREA NITROGEN 67 mg/dL (7-18); CALCIUM 8.8 MG/DL (8.5-10.1); CARBON DIOXIDE 27 MMOL/L (21-32); CHLORIDE 98 MMOL/L (98-107); CREATININE 9.4 MG/DL (0.55-1.30); POTASSIUM 3.3 MMOL/L (3.5-5.1); SODIUM 143 MMOL/L (136-145)
[2019-07-04] MEDS: fentaNYL 2500mcg/NS 250ml IV SCH (06:00)
[2019-07-04] MEDS: NovoLOG Insulin Flexpen SUBQ SCH ×5 (06:00→23:52)
[2019-07-04] MEDS: Renvela 800mg Pkt NG SCH ×3 (06:06→21:20)
[2019-07-04] MEDS: Piperacillin/Tazobactam 2.25 GM in NS 55 ML IVPB SCH (06:06)
[2019-07-04] MEDS: Docusate 100mg/10ml Liq NG SCH ×3 (08:28→17:04)
[2019-07-04] MEDS: Enoxaparin 30mg Inj SUBQ SCH (08:29)
[2019-07-04] MEDS: Pantoprazole Inj IVP SCH (08:29)
[2019-07-04] MEDS: Midodrine 10mg tab NG SCH ×3 (08:29→17:04)
[2019-07-04] MEDS ORDERED: Tubing IV Secondary IV ONE (09:32)
--- NOTE | 2019-07-04 09:55 | Infectious Diseases Prog Note ---
Assessment/Plan Assessment/Plan IMPRESSION: 1. COVID19 pneumonia Positive: 05/27, 05/31 , 06/05, 06/09 ,06/17, 06/19, 06/23, 06/27 2. MRSA carrier. 3. Chronic kidney disease , end-stage renal disease. 4. COPD. 5. Hypertension. 6. Anemia. 7. Hypothyroidism. 8. Hyperlipidemia. 9. Major depression. 10. Leukocytosis 11. Hypotension 12. Hepatitis C 13. Hyperuricemia 14. Diarrhea 15. septic shock 16. Leukocytosis & fever 17. Bacteremia with Staph epidermidis RECOMMENDATIONS: Consider line change Continue Vancomycin May discontinue Zosyn Finished hydroxychloroquine. Will f/u COVID19 test Case was D/W RN Subjective ROS Limited/Unobtainable: Yes Constitutional: Denies: fever Allergies: Coded Allergies: No Known Allergies (Unverified , 05/28/19) Objective Vital Signs Last 24 Hour Vital Signs Date Time Temp Pulse Resp B/P (MAP) Pulse Ox O2 Delivery O2 Flow Rate FiO2 07/04/19 09:42 99 07/04/19 09:42 30 07/04/19 09:00 93 39 128/67 (87) 99 07/04/19 08:00 30 07/04/19 08:00 98.7 84 13 130/63 (85) 99 07/04/19 07:11 86 25 100 Mechanical Ventilator 30 85 26 30 07/04/19 07:00 88 22 109/62 (78) 99 07/04/19 06:30 94 17 07/04/19 06:00 94 17 116/64 (81) 99 07/04/19 05:00 99 20 122/69 (86) 98 07/04/19 04:00 30 07/04/19 04:00 82 07/04/19 04:00 98.9 88 25 120/64 (82) 99 07/04/19 04:00 Mechanical Ventilator 07/04/19 03:02 86 26 100 Mechanical Ventilator 30 86 26 30 07/04/19 03:00 87 25 121/67 (85) 100 07/04/19 02:00 90 25 128/64 (85) 100 07/04/19 01:00 88 26 109/65 (80) 99 07/04/19 00:00 99.1 86 27 143/79 (100) 97 07/04/19 00:00 Mechanical Ventilator 07/04/19 00:00 82 07/03/19 23:04 87 26 100 Mechanical Ventilator 30 88 26 30 07/03/19 23:00 87 27 132/69 (90) 96 07/03/19 23:00 132/69 07/03/19 22:00 84 26 126/63 (84) 100 07/03/19 21:00 83 27 132/69 (90) 99 07/03/19 20:00 98.7 81 27 123/67 (85) 100 07/03/19 20:00 30 07/03/19 20:00 82 07/03/19 20:00 Mechanical Ventilator 07/03/19 19:15 89 27 100 Mechanical Ventilator 30 88 26 30 07/03/19 19:00 86 27 122/66 (84) 98 07/03/19 18:00 84 20 113/63 (80) 100 07/03/19 17:00 82 22 140/67 (91) 100 07/03/19 16:00 Mechanical Ventilator 07/03/19 16:00 30 07/03/19 16:00 85 07/03/19 16:00 97.5 85 23 109/60 (76) 100 07/03/19 15:14 86 26 100 Mechanical Ventilator 30 88 26 30 07/03/19 15:00 85 23 130/70 (90) 100 07/03/19 14:00 87 27 140/67 (91) 100 07/03/19 13:00 98 25 119/66 (83) 100 07/03/19 12:05 30 07/03/19 12:00 97.8 98 25 128/66 (86) 100 07/03/19 12:00 Mechanical Ventilator 07/03/19 11:00 87 28 119/64 (82) 100 07/03/19 10:54 112 27 98 Mechanical Ventilator 30 98 27 30 07/03/19 10:00 98 25 128/66 (86) 100 Height (Feet): 6 Height (Inches): 1.00 Weight (Pounds): 226 HEENT: other - orally intubated Respiratory/Chest: other - on ventilator Abdomen: soft, non tender, other - orogatric tubes Extremities: no edema Skin: ulcers, other - developing heels tissue injury Neurologic/Psychiatric: disoriented Microbiology Date/Time Source Procedure Growth Status 07/01/19 12:00 Blood Blood Culture - Final Staphylococcus Epidermidis Complete Laboratory Tests Test 07/04/19 04:00 White Blood Count 13.1 K/UL (4.8-10.8) H Red Blood Count 2.95 M/UL (4.70-6.10) L Hemoglobin 8.5 G/DL (14.2-18.0) L Hematocrit 27.2 % (42.0-52.0) L Mean Corpuscular Volume 92 FL (80-99) Mean Corpuscular Hemoglobin 28.7 PG (27.0-31.0) Mean Corpuscular Hemoglobin Concent 31.1 G/DL (32.0-36.0) L Red Cell Distribution Width 16.7 % (11.6-14.8) H Platelet Count 491 K/UL (150-450) H Mean Platelet Volume 5.6 FL (6.5-10.1) L Neutrophils (%) (Auto) 81.4 % (45.0-75.0) H Lymphocytes (%) (Auto) 11.1 % (20.0-45.0) L Monocytes (%) (Auto) 5.0 % (1.0-10.0) Eosinophils (%) (Auto) 2.0 % (0.0-3.0) Basophils (%) (Auto) 0.5 % (0.0-2.0) Sodium Level 143 MMOL/L (136-145) Potassium Level 3.3 MMOL/L (3.5-5.1) L Chloride Level 98 MMOL/L (98-107) Carbon Dioxide Level 27 MMOL/L (21-32) Anion Gap 18 mmol/L (5-15) H Blood Urea Nitrogen 67 mg/dL (7-18) H Creatinine 9.4 MG/DL (0.55-1.30) H Estimat Glomerular Filtration Rate 5.6 mL/min (>60) Glucose Level 146 MG/DL (74-106) H Calcium Level 8.8 MG/DL (8.5-10.1) Current Medications Medications (Trade) Dose Ordered Sig/Anthony Route PRN Reason Start Time Stop Time Status Last Admin Dose Admin Acetaminophen (Tylenol) 650 mg Q4H PRN NG Temp >100.5 06/13/19 11:00 07/13/19 10:59 07/01/19 08:32 Albuterol Sulfate (Proventil MDI) 2 puff Q4HRT INH 06/06/19 23:00 08/30/19 18:59 07/04/19 08:00 Chlorhexidine Gluconate (Michelle-Hex 2%) 1 applic DAILY@2000 TOPIC 06/07/19 20:00 09/05/19 19:59 07/03/19 20:40 Dextrose (Dextrose 50%) 25 ml Q30M PRN IV Hypoglycemia 06/20/19 19:30 09/18/19 19:29 Dextrose (Dextrose 50%) 50 ml Q30M PRN IV Hypoglycemia 06/20/19 19:30 09/18/19 19:29 Docusate Sodium (Colace) 100 mg THREE TIMES A DAY NG 06/07/19 13:00 07/07/19 12:59 07/04/19 08:28 Dopamine HCl/ Dextrose 250 ml @ 0 mls/hr Q24H PRN IV For hypotension 06/13/19 08:15 09/11/19 08:14 Enoxaparin Sodium (Lovenox) 30 mg DAILY SUBQ 06/07/19 09:00 08/27/19 08:59 07/04/19 08:29 Epoetin Aftab (Epoetin Aftab(ESRD on dialysis)) 10,000 unit FRI- SUBQ 06/07/19 21:00 08/31/19 20:59 07/02/19 21:47 Fentanyl Citrate 250 ml @ 0 mls/hr Q24H IV 06/24/19 06:00 09/22/19 05:59 07/02/19 11:50 Hydralazine HCl (Apresoline) 10 mg Q4H PRN IV Blood pressure over 160 systol 06/07/19 10:15 09/05/19 10:14 Insulin Aspart (NovoLOG) EVERY 6 HOURS SUBQ 06/21/19 00:00 09/19/19 00:00 07/03/19 18:25 Metoclopramide HCl (Reglan) 5 mg Q8H PRN IVP Nausea & Vomiting 06/18/19 12:00 07/18/19 11:59 06/19/19 00:50 Midodrine (Pro-Amatine) 10 mg THREE TIMES A DAY NG 06/09/19 13:00 09/07/19 12:59 07/04/19 08:29 Norepinephrine Bitartrate 8 mg/ Dextrose 283 ml @ 0 mls/hr Q24H IV 06/23/19 23:00 07/23/19 22:59 06/25/19 14:38 Pantoprazole (Protonix) 40 mg DAILY IVP 06/19/19 09:00 07/19/19 08:59 07/04/19 08:29 Piperacillin Sod/ Tazobactam Sod 2.25 gm/Sodium Chloride 55 ml @ 110 mls/hr Q8HR IVPB 07/01/19 14:00 07/06/19 13:59 07/04/19 06:06 Sevelamer Carbonate (Renvela) 1,600 mg Q8HR NG 06/25/19 22:00 09/05/19 12:59 07/04/19 06:06 Vancomycin HCl (Vanco rx to dose) 1 ea DAILY PRN MISC Per rx protocol 07/01/19 11:00 07/31/19 10:59 Ted Leyva MD July 04, 2019 09:55
--- NOTE | 2019-07-04 10:52 | Nephrology Progress Note ---
Assessment/Plan Problem List: (1) CASSANDRA (acute kidney injury) (2) Anemia in chronic kidney disease (CKD) (3) HTN (hypertension) (4) COVID-19 Assessment Acute renal failure most likely superimposed on chronic kidney disease Suspected COVID-19 virus infection Possible Pneumonia, lymphopenia, elevated AST Cardiomegaly, possible CHF COPD Hypertension Anemia, most likely related to chronic kidney disease Plan July 03: Dialysis is about to be started now Continues to be intubated Will plan to remove the femoral dialysis catheter and exchanged for a new temporary catheter per ID recommendation We will check surveillance blood culture tomorrow July 02: Patient was dialyzed yesterday and due for dialysis tomorrow Stable from renal standpoint W on dialysis Continue per consultants, weaning....... etc. July 01: Dialysis today Other status unchanged June 30: Due for dialysis tomorrow Remains intubated on ventilator Labs and medication reviewed Discussed with SHANIQUE Stable from renal standpoint of view June 29: Dialyzed yesterday Due for dialysis tomorrow Stable from renal standpoint to view Keeps failing weaning process June 28: Patient due for dialysis today Stable from renal standpoint to view Continue per consultants June 27: Labs reviewed Due due for dialysis June 28 Discussed with SHANIQUE Silverman per consultants Remains intubated on ventilator June 26 Labs reviewed Dialyzed yesterday Started on weaning today Continue to monitor renal parameters June 25: On dialysis now Potassium supplement implemented Continue per consultants Next dialysis June 27June 15: Status unchanged Dialyzed yesterday will dialyze again tomorrow Potassium supplements given Discussed with RN June 14: Due dialysis today Status: Remains intubated on ventilator June 13: Status unchanged Dialyzed yesterday and duefordialysistomorrow Serum sodium stable today June 21 Remains intubated on ventilator Due dialysis today Emphasized high sodium bath for dialysis June 20: Remains intubated on ventilator Dialyzed June 19 next dialysis June 21 Serum sodium 128, will give 250 cc 3% saline Remains full code Discussed with RN Iron panel ordered June 19: Discussed with RN. Patient due for dialysis today. Continue pulmonary support. Remains full code. June 18: Patient dialyzed yesterday June 17 Serum sodium improved but still low Arrange for dialysis tomorrow June 19 Continue per consultants June 17: Due for dialysis today Today's lab reviewed, low serum sodium noted, Emphasized on high sodium bath to dialysis nurse Discussed with SHANIQUE Yuen May 7: Dialyzed yesterday Remains intubated Labs reviewed, serum sodium 131 Plan to dialyze tomorrow June 17 with high sodium bath Discussed with SHANIQUE Yuen June 6: Due for dialysis today Labs reviewed Discussed with RN Transfuse 1 unit of packed RBCs today for low hemoglobin of 7.1 June 5: Blood pressure well maintained Receive dialysis June 13 next hemodialysis June 15June 4: Discussed with RN in ICU Patient did not receive proper dialysis yesterday due to dialysis catheter malfunction Catheter to be adjusted today and dialyzed to be resumed today Continue per consultants Positive for COVID 28 June 2: Patient now intubated on mechanical ventilation Discussed with SHANIQUE Yuen, today June 12 Patient received dialysis yesterday June 10 next hemodialysis June 12 Blood pressure better maintained Today's labs reviewed Continue per consultants Previously patient received dialysis last evening June 05, next dialysis June 07 which was incomplete due to patient's hypotension Will start on midodrine for blood pressure support. Meanwhile continue other pressors as needed Previously Patient is doing poorly, septic, white blood cells are rising, Hypotension somewhat improved We will keep n.p.o. , NG tube for medications, and change medication to IV as needed Patient remains full code Monitor vancomycin level Previously: Patient pulled out his femoral catheter yesterday June 03 which was reinserted by Dr. Mast Patient scheduled for dialysis again June 04, which again was not done due to dialysis nurse citing catheter malfunction Meanwhile continue management per ID, pulmonary , and psych. Meanwhile white blood cell count is rising. Patient blood pressure borderline low. Will check ABG Previously May 31 : I believe patient need dialysis treatment He however needs to competency assessment if can make decisions or not I will communicate with Dr. Mulligan Previously: Per pulmonary and ID advice Adjust blood pressure medication Renal diet Anemia work-up 2D echocardiogram refused Kidney ultrasound refused Jules catheter Urine studies Per orders Subjective ROS Limited/Unobtainable: Yes Objective Objective Last 24 Hour Vital Signs Date Time Temp Pulse Resp B/P (MAP) Pulse Ox O2 Delivery O2 Flow Rate FiO2 07/04/19 10:00 84 16 125/69 (87) 99 07/04/19 09:42 99 07/04/19 09:42 30 07/04/19 09:00 93 39 128/67 (87) 99 07/04/19 08:00 84 07/04/19 08:00 30 07/04/19 08:00 98.7 84 13 130/63 (85) 99 07/04/19 08:00 Mechanical Ventilator 07/04/19 07:11 86 25 100 Mechanical Ventilator 30 85 26 30 07/04/19 07:00 88 22 109/62 (78) 99 07/04/19 06:30 94 17 07/04/19 06:00 94 17 116/64 (81) 99 07/04/19 05:00 99 20 122/69 (86) 98 07/04/19 04:00 30 07/04/19 04:00 82 07/04/19 04:00 98.9 88 25 120/64 (82) 99 07/04/19 04:00 Mechanical Ventilator 07/04/19 03:02 86 26 100 Mechanical Ventilator 30 86 26 30 07/04/19 03:00 87 25 121/67 (85) 100 07/04/19 02:00 90 25 128/64 (85) 100 07/04/19 01:00 88 26 109/65 (80) 99 07/04/19 00:00 99.1 86 27 143/79 (100) 97 07/04/19 00:00 Mechanical Ventilator 07/04/19 00:00 82 07/03/19 23:04 87 26 100 Mechanical Ventilator 30 88 26 30 07/03/19 23:00 87 27 132/69 (90) 96 07/03/19 23:00 132/69 07/03/19 22:00 84 26 126/63 (84) 100 07/03/19 21:00 83 27 132/69 (90) 99 07/03/19 20:00 98.7 81 27 123/67 (85) 100 07/03/19 20:00 30 07/03/19 20:00 82 07/03/19 20:00 Mechanical Ventilator 07/03/19 19:15 89 27 100 Mechanical Ventilator 30 88 26 30 07/03/19 19:00 86 27 122/66 (84) 98 07/03/19 18:00 84 20 113/63 (80) 100 07/03/19 17:00 82 22 140/67 (91) 100 07/03/19 16:00 Mechanical Ventilator 07/03/19 16:00 30 07/03/19 16:00 85 07/03/19 16:00 97.5 85 23 109/60 (76) 100 07/03/19 15:14 86 26 100 Mechanical Ventilator 30 88 26 30 07/03/19 15:00 85 23 130/70 (90) 100 07/03/19 14:00 87 27 140/67 (91) 100 07/03/19 13:00 98 25 119/66 (83) 100 07/03/19 12:05 30 07/03/19 12:00 97.8 98 25 128/66 (86) 100 07/03/19 12:00 Mechanical Ventilator 07/03/19 11:00 87 28 119/64 (82) 100 07/03/19 10:54 112 27 98 Mechanical Ventilator 30 98 27 30 Intake and Output 07/03/19 07/04/19 18:59 06:59 Intake Total 945 ml 735 ml Output Total 65 ml 5 ml Balance 880 ml 730 ml Free Water 200 ml 260 ml IV Total 55 ml Tube Feeding 385 ml 420 ml Other 360 ml Output Urine Total 65 ml 5 ml # Bowel Movements 1 3 Laboratory Tests 07/04/19 04:00: White Blood Count 13.1H, Red Blood Count 2.95L, Hemoglobin 8.5L, Hematocrit 27.2L, Mean Corpuscular Volume 92, Mean Corpuscular Hemoglobin 28.7, Mean Corpuscular Hemoglobin Concent 31.1L, Red Cell Distribution Width 16.7H, Platelet Count 491H, Mean Platelet Volume 5.6L, Neutrophils (%) (Auto) 81.4H, Lymphocytes (%) (Auto) 11.1L, Monocytes (%) (Auto) 5.0, Eosinophils (%) (Auto) 2.0, Basophils (%) (Auto) 0.5, Sodium Level 143, Potassium Level 3.3L, Chloride Level 98, Carbon Dioxide Level 27, Anion Gap 18H, Blood Urea Nitrogen 67H, Creatinine 9.4H, Estimat Glomerular Filtration Rate 5.6, Glucose Level 146H, Calcium Level 8.8 Height (Feet): 6 Height (Inches): 1.00 Weight (Pounds): 226 General Appearance: no apparent distress EENT: other - Intubated on ventilator Cardiovascular: tachycardia Respiratory/Chest: decreased breath sounds Abdomen: distended Objective No change Mic Cole MD July 04, 2019 10:52
--- NOTE | 2019-07-04 10:57 | Hematology/Onc Progress Note ---
Assessment/Plan Assessment/Plan Assessment and Recs: # Anemia of chronic disease, likely related ot underlying kidney disease has COIVD19++++++ --> hgb trend 9-->8-->7.3-->7.9-->6.8->9.5-->10->8.3-->7.7-->7.1-->8.9->8.8->7.7 -->8.1 ->7.9-->7.7 -->8.2-->8.1 -->7.9-->8.5 --> transfuse as needed, hgb goal >7 --> no evidence of hemolysis --> peripheral smear has been reviewed --> epogen started three x a week ==>> transfuse 06/08, 06/15, # Leukocytosis likely related to suspected COVID-19 virus infection --> completed plaquenil --> trend smear as needed --> initially 4-->11-->14.5-->21-->26-->21->24--.28-->23-->19-->16.2-->21--> 11.2 -->12.5-->12.3-->12.4 --> pulm is aware --> on abx cefepime/vanc->zosyn/vanc --> pressors as needed --> 06/27 covid 19++ # Thrombocytopenia/Lymphopenia --> likely related to covid19 --> plt 129k-->186k-->251-->285-->384 -->430-->539 --> abx # Respiratory failure with covid19+ --> s/p vent --> weaning # Possible Pneumonia --> abx completed # Cardiomegaly # Transaminitis with Elevated AST # COPD # Chronic Kidney Disease --> per renal hd --> s/p right femoral cath 07/02 # Hypertension # Dvt ppx lovenox Appreciate consultation and dw Rn Subjective Constitutional: Denies: no symptoms, chills, fever, malaise, weakness, other HEENT: Denies: no symptoms, eye pain, blurred vision, tearing, double vision, ear pain, ear discharge, nose pain, nose congestion, throat pain, throat swelling, mouth pain, mouth swelling, other Cardiovascular: Denies: no symptoms, chest pain, edema, irregular heart rate, lightheadedness, palpitations, syncope, other Respiratory: Denies: no symptoms, cough, shortness of breath, SOB with excertion, SOB at rest, sputum, wheezing, other Genitourinary: Denies: no symptoms, burning, discharge, frequency, flank pain, hematuria, incontinence, pain, urgency, other Neurologic/Psychiatric: Denies: no symptoms, anxiety, depressed, emotional problems, headache, numbness, paresthesia, pre-existing deficit, seizure, tingling, tremors, weakness, other Allergies: Coded Allergies: No Known Allergies (Unverified , 05/28/19) Subjective 06/01 nv, extremely agitated, not allowing labs draws, no night sweats, cbc ordered 06/02 confused, restraints, on abx and plaquenil, hgb 7.9, nrb 15 L 06/03 is with nonrebreather, but not compliant, remains confused 06/05 no bleeding, labs noted, no major bleeding, otherwise comfortable 06/06 labs reviewed, no bleeding, meds noted, no night sweats, on levo and nonrebreather 06/07 labs noted, no bleeding, meds reviewed, no bleeding, wbc higher 06/08 to get 2 units prbc, no night sweats, meds reviewed 06/09 is on cefepime and vanc, labs noted, ernesto Rn, no bleeding 06/10 no major changes, labs reviewed, wbc 28k, on abx, cefepime 06/12 remains in icu, labs noted, no night sweats or bleeding 06/13 sluggish pupils, remains agitated, per psych, no bleding, on vent, wbc sitll high 06/14 still confused, remains on vent, with ng, running nepro, on pressors 06/15 icu, febrile, non verbal, hgb 7.1, blood pending, completed plaq 06/16 remains in the icu, nonverbal, plan for hd tomorrow, ernesto rn 06/17 in icu, on pressor, nonverbal, on abx, no bleeding 06/19 no bleeding, nonverbal in icu, hgb is 7.7 06/20 on zosyn, tube feeds, vent, labs noted, in icu, nv 06/21 gettng hd as per renal, in icu, nv, no bleeding, tfs 06/22 icu, cxr with slight improvement, cooling blanket, weaning today 06/23 wewaning, in icu, on vent, abx, and pressors as needed, labs noted 06/24 failed weaning, off abx, completed plaquenil, hgb 8.1 06/26 icu, weaning for this am, afebrile, hgb 8 06/27 in icu, remains comotose, weaning started on peep, no night sweats 06/28 weaning today, off abx, restraints, no distress, h/h stable 06/29 covid 19+, failed weaning, no blood transfusion needed 06/30 icu, on vent, labs reviewed, no distress 07/01 in icu, may need trach, remains on hd per renal, labs noted 07/02 s/p right fem cath, failed wean, no new orders, h/h stable 07/03 is somewhat more responsive, on abx, no bleeding, weaning and HD today Objective Objective Current Medications Medications (Trade) Dose Ordered Sig/Anthony Route PRN Reason Start Time Stop Time Status Last Admin Dose Admin Acetaminophen (Tylenol) 650 mg Q4H PRN NG Temp >100.5 06/13/19 11:00 07/13/19 10:59 07/01/19 08:32 Albumin Human 100 ml @ 100 mls/hr ONCE IV 07/04/19 10:45 07/04/19 11:45 07/04/19 10:50 Albuterol Sulfate (Proventil MDI) 2 puff Q4HRT INH 06/06/19 23:00 08/30/19 18:59 07/04/19 08:00 Chlorhexidine Gluconate (Michelle-Hex 2%) 1 applic DAILY@2000 TOPIC 06/07/19 20:00 09/05/19 19:59 07/03/19 20:40 Dextrose (Dextrose 50%) 25 ml Q30M PRN IV Hypoglycemia 06/20/19 19:30 09/18/19 19:29 Dextrose (Dextrose 50%) 50 ml Q30M PRN IV Hypoglycemia 06/20/19 19:30 09/18/19 19:29 Docusate Sodium (Colace) 100 mg THREE TIMES A DAY NG 06/07/19 13:00 07/07/19 12:59 07/04/19 08:28 Dopamine HCl/ Dextrose 250 ml @ 0 mls/hr Q24H PRN IV For hypotension 06/13/19 08:15 09/11/19 08:14 Enoxaparin Sodium (Lovenox) 30 mg DAILY SUBQ 06/07/19 09:00 08/27/19 08:59 07/04/19 08:29 Epoetin Aftab (Epoetin Aftab(ESRD on dialysis)) 10,000 unit FRI- SUBQ 06/07/19 21:00 08/31/19 20:59 07/02/19 21:47 Fentanyl Citrate 250 ml @ 0 mls/hr Q24H IV 06/24/19 06:00 09/22/19 05:59 07/02/19 11:50 Hydralazine HCl (Apresoline) 10 mg Q4H PRN IV Blood pressure over 160 systol 06/07/19 10:15 09/05/19 10:14 Insulin Aspart (NovoLOG) EVERY 6 HOURS SUBQ 06/21/19 00:00 09/19/19 00:00 07/03/19 18:25 Metoclopramide HCl (Reglan) 5 mg Q8H PRN IVP Nausea & Vomiting 06/18/19 12:00 07/18/19 11:59 06/19/19 00:50 Midodrine (Pro-Amatine) 10 mg THREE TIMES A DAY NG 06/09/19 13:00 09/07/19 12:59 07/04/19 08:29 Norepinephrine Bitartrate 8 mg/ Dextrose 283 ml @ 0 mls/hr Q24H IV 06/23/19 23:00 07/23/19 22:59 06/25/19 14:38 Pantoprazole (Protonix) 40 mg DAILY IVP 06/19/19 09:00 07/19/19 08:59 07/04/19 08:29 Sevelamer Carbonate (Renvela) 1,600 mg Q8HR NG 06/25/19 22:00 09/05/19 12:59 07/04/19 06:06 Vancomycin HCl (Vanco rx to dose) 1 ea DAILY PRN MISC Per rx protocol 07/01/19 11:00 07/31/19 10:59 Last 24 Hour Vital Signs Date Time Temp Pulse Resp B/P (MAP) Pulse Ox O2 Delivery O2 Flow Rate FiO2 07/04/19 10:00 84 16 125/69 (87) 99 07/04/19 09:42 99 07/04/19 09:42 30 07/04/19 09:00 93 39 128/67 (87) 99 07/04/19 08:00 84 07/04/19 08:00 30 07/04/19 08:00 98.7 84 13 130/63 (85) 99 07/04/19 08:00 Mechanical Ventilator 07/04/19 07:11 86 25 100 Mechanical Ventilator 30 85 26 30 07/04/19 07:00 88 22 109/62 (78) 99 07/04/19 06:30 94 17 07/04/19 06:00 94 17 116/64 (81) 99 07/04/19 05:00 99 20 122/69 (86) 98 07/04/19 04:00 30 07/04/19 04:00 82 07/04/19 04:00 98.9 88 25 120/64 (82) 99 07/04/19 04:00 Mechanical Ventilator 07/04/19 03:02 86 26 100 Mechanical Ventilator 30 86 26 30 07/04/19 03:00 87 25 121/67 (85) 100 07/04/19 02:00 90 25 128/64 (85) 100 07/04/19 01:00 88 26 109/65 (80) 99 07/04/19 00:00 99.1 86 27 143/79 (100) 97 07/04/19 00:00 Mechanical Ventilator 07/04/19 00:00 82 07/03/19 23:04 87 26 100 Mechanical Ventilator 30 88 26 30 07/03/19 23:00 87 27 132/69 (90) 96 07/03/19 23:00 132/69 07/03/19 22:00 84 26 126/63 (84) 100 07/03/19 21:00 83 27 132/69 (90) 99 07/03/19 20:00 98.7 81 27 123/67 (85) 100 07/03/19 20:00 30 07/03/19 20:00 82 07/03/19 20:00 Mechanical Ventilator 07/03/19 19:15 89 27 100 Mechanical Ventilator 30 88 26 30 07/03/19 19:00 86 27 122/66 (84) 98 07/03/19 18:00 84 20 113/63 (80) 100 07/03/19 17:00 82 22 140/67 (91) 100 07/03/19 16:00 Mechanical Ventilator 07/03/19 16:00 30 07/03/19 16:00 85 07/03/19 16:00 97.5 85 23 109/60 (76) 100 07/03/19 15:14 86 26 100 Mechanical Ventilator 30 88 26 30 07/03/19 15:00 85 23 130/70 (90) 100 07/03/19 14:00 87 27 140/67 (91) 100 07/03/19 13:00 98 25 119/66 (83) 100 07/03/19 12:05 30 07/03/19 12:00 97.8 98 25 128/66 (86) 100 07/03/19 12:00 Mechanical Ventilator 07/03/19 11:00 87 28 119/64 (82) 100 07/03/19 10:54 112 27 98 Mechanical Ventilator 30 98 27 30 07/03/19 10:00 98 25 128/66 (86) 100 07/03/19 09:00 98 25 128/66 (86) 100 07/03/19 08:45 99 07/03/19 08:00 98.0 101 24 91/62 (72) 100 07/03/19 08:00 Mechanical Ventilator 07/03/19 08:00 30 07/03/19 07:11 73 27 99 Mechanical Ventilator 30 75 28 30 07/03/19 07:00 80 26 137/70 (92) 100 07/03/19 06:30 75 26 07/03/19 06:00 98.3 81 26 109/66 (80) 100 07/03/19 06:00 26 109/64 Mechanical Ventilator 30 07/03/19 05:00 26 123/68 Mechanical Ventilator 30 07/03/19 05:00 83 26 123/68 (86) 100 07/03/19 04:31 79 27 98 Mechanical Ventilator 30 77 29 30 07/03/19 04:00 Mechanical Ventilator 07/03/19 04:00 30 07/03/19 04:00 26 109/62 Mechanical Ventilator 30 07/03/19 04:00 79 26 109/62 (78) 100 07/03/19 04:00 79 07/03/19 03:00 28 116/72 Mechanical Ventilator 30 07/03/19 03:00 76 26 116/72 (87) 100 07/03/19 02:00 24 128/66 Mechanical Ventilator 30 07/03/19 02:00 78 24 128/66 (86) 100 07/03/19 01:00 26 121/72 Mechanical Ventilator 30 07/03/19 01:00 76 26 121/72 (88) 100 07/03/19 00:15 26 86/64 Mechanical Ventilator 30 07/03/19 00:00 26 102/63 Mechanical Ventilator 30 07/03/19 00:00 Mechanical Ventilator 07/03/19 00:00 98.9 74 26 102/63 (76) 100 07/02/19 23:00 78 26 107/61 (76) 100 07/02/19 23:00 26 107/61 Mechanical Ventilator 30 07/02/19 23:00 115/72 07/02/19 22:50 86 27 100 Mechanical Ventilator 30 90 29 30 07/02/19 22:00 27 111/61 Mechanical Ventilator 30 07/02/19 22:00 72 28 111/61 (78) 100 07/02/19 21:00 70 27 95/58 (70) 100 07/02/19 21:00 26 95/50 Mechanical Ventilator 30 07/02/19 20:00 76 07/02/19 20:00 30 07/02/19 20:00 26 111/63 Mechanical Ventilator 30 07/02/19 20:00 99.4 80 26 111/63 (79) 99 07/02/19 20:00 Mechanical Ventilator 07/02/19 19:41 79 26 100 Mechanical Ventilator 30 78 27 30 07/02/19 19:00 79 0 103/60 (74) 100 07/02/19 19:00 26 103/60 Mechanical Ventilator 30 07/02/19 18:00 25 110/63 Mechanical Ventilator 07/02/19 18:00 89 26 126/105 (112) 99 07/02/19 17:00 79 27 93/56 (68) 95 07/02/19 17:00 25 108/64 Mechanical Ventilator 07/02/19 16:06 78 07/02/19 16:00 Mechanical Ventilator 07/02/19 16:00 30 07/02/19 16:00 17 87/57 Mechanical Ventilator 07/02/19 16:00 80 26 87/57 (67) 95 07/02/19 15:30 81 26 85/61 (69) 99 07/02/19 15:15 82 26 94/53 (67) 99 07/02/19 15:00 85 26 87/58 (68) 99 07/02/19 15:00 26 87/58 Mechanical Ventilator 07/02/19 14:45 93 28 100 Mechanical Ventilator 30 89 27 30 07/02/19 14:00 76 26 87/38 (54) 99 07/02/19 13:30 102 0 108/67 (81) 99 07/02/19 13:15 110 15 127/75 (92) 99 07/02/19 13:00 100 19 108/67 (81) 100 07/02/19 13:00 104 27 114/78 (90) 100 07/02/19 12:45 97 26 88/58 (68) 99 07/02/19 12:30 110 30 136/87 (103) 100 07/02/19 12:15 99 26 113/72 (86) 100 07/02/19 12:00 30 07/02/19 12:00 Mechanical Ventilator 07/02/19 12:00 99.4 95 21 119/79 (92) 100 07/02/19 12:00 98 07/02/19 12:00 24 119/79 Mechanical Ventilator 07/02/19 12:00 99 23 119/79 (92) 100 07/02/19 11:50 22 115/60 07/02/19 11:00 74 0 127/63 (84) 100 Intake and Output 07/03/19 07/04/19 19:00 07:00 Intake Total 980 ml 834 ml Output Total 65 ml 5 ml Balance 915 ml 829 ml Free Water 200 ml 260 ml IV Total 154 ml Tube Feeding 420 ml 420 ml Other 360 ml Output Urine Total 65 ml 5 ml # Bowel Movements 1 3 Labs Test 07/02/19 04:00 07/03/19 04:00 07/04/19 04:00 White Blood Count 13.3 K/UL (4.8-10.8) 12.4 K/UL (4.8-10.8) 13.1 K/UL (4.8-10.8) Red Blood Count 2.70 M/UL (4.70-6.10) 2.90 M/UL (4.70-6.10) 2.95 M/UL (4.70-6.10) Hemoglobin 7.9 G/DL (14.2-18.0) 8.5 G/DL (14.2-18.0) 8.5 G/DL (14.2-18.0) Hematocrit 25.1 % (42.0-52.0) 26.9 % (42.0-52.0) 27.2 % (42.0-52.0) Mean Corpuscular Volume 93 FL (80-99) 93 FL (80-99) 92 FL (80-99) Mean Corpuscular Hemoglobin 29.3 PG (27.0-31.0) 29.2 PG (27.0-31.0) 28.7 PG (27.0-31.0) Mean Corpuscular Hemoglobin Concent 31.5 G/DL (32.0-36.0) 31.5 G/DL (32.0-36.0) 31.1 G/DL (32.0-36.0) Red Cell Distribution Width 16.7 % (11.6-14.8) 17.0 % (11.6-14.8) 16.7 % (11.6-14.8) Platelet Count 470 K/UL (150-450) 446 K/UL (150-450) 491 K/UL (150-450) Mean Platelet Volume 6.1 FL (6.5-10.1) 6.1 FL (6.5-10.1) 5.6 FL (6.5-10.1) Neutrophils (%) (Auto) % (45.0-75.0) 76.5 % (45.0-75.0) 81.4 % (45.0-75.0) Lymphocytes (%) (Auto) % (20.0-45.0) 11.3 % (20.0-45.0) 11.1 % (20.0-45.0) Monocytes (%) (Auto) % (1.0-10.0) 8.5 % (1.0-10.0) 5.0 % (1.0-10.0) Eosinophils (%) (Auto) % (0.0-3.0) 2.1 % (0.0-3.0) 2.0 % (0.0-3.0) Basophils (%) (Auto) % (0.0-2.0) 1.6 % (0.0-2.0) 0.5 % (0.0-2.0) Differential Total Cells Counted 100 Neutrophils % (Manual) 81 % (45-75) Lymphocytes % (Manual) 13 % (20-45) Monocytes % (Manual) 4 % (1-10) Eosinophils % (Manual) 1 % (0-3) Basophils % (Manual) 1 % (0-2) Band Neutrophils 0 % (0-8) Platelet Estimate Adequate Platelet Morphology Normal Hypochromasia 3+ Anisocytosis 1+ Sodium Level 148 MMOL/L (136-145) 141 MMOL/L (136-145) 143 MMOL/L (136-145) Potassium Level 4.0 MMOL/L (3.5-5.1) 3.7 MMOL/L (3.5-5.1) 3.3 MMOL/L (3.5-5.1) Chloride Level 104 MMOL/L (98-107) 98 MMOL/L (98-107) 98 MMOL/L (98-107) Carbon Dioxide Level 28 MMOL/L (21-32) 26 MMOL/L (21-32) 27 MMOL/L (21-32) Anion Gap 16 mmol/L (5-15) 17 mmol/L (5-15) 18 mmol/L (5-15) Blood Urea Nitrogen 78 mg/dL (7-18) 59 mg/dL (7-18) 67 mg/dL (7-18) Creatinine 9.5 MG/DL (0.55-1.30) 7.9 MG/DL (0.55-1.30) 9.4 MG/DL (0.55-1.30) Estimat Glomerular Filtration Rate 5.6 mL/min (>60) 6.9 mL/min (>60) 5.6 mL/min (>60) Glucose Level 119 MG/DL (74-106) 114 MG/DL (74-106) 146 MG/DL (74-106) Calcium Level 8.7 MG/DL (8.5-10.1) 8.8 MG/DL (8.5-10.1) 8.8 MG/DL (8.5-10.1) Phosphorus Level 5.6 MG/DL (2.5-4.9) 5.1 MG/DL (2.5-4.9) Magnesium Level 3.2 MG/DL (1.8-2.4) 2.4 MG/DL (1.8-2.4) Total Bilirubin 0.4 MG/DL (0.2-1.0) 0.5 MG/DL (0.2-1.0) Aspartate Amino Transf (AST/SGOT) 25 U/L (15-37) 27 U/L (15-37) Alanine Aminotransferase (ALT/SGPT) 10 U/L (12-78) 13 U/L (12-78) Alkaline Phosphatase 79 U/L (46-116) 82 U/L (46-116) Pro-B-Type Natriuretic Peptide 30253 pg/mL (0-125) > 66981 pg/mL (0-125) Total Protein 8.1 G/DL (6.4-8.2) 8.8 G/DL (6.4-8.2) Albumin 2.0 G/DL (3.4-5.0) 2.1 G/DL (3.4-5.0) Globulin 6.1 g/dL 6.7 g/dL Albumin/Globulin Ratio 0.3 (1.0-2.7) 0.3 (1.0-2.7) Random Vancomycin Level 30.0 ug/mL 25.0 ug/mL C-Reactive Protein, Quantitative 9.2 mg/dL (0.00-0.90) Height (Feet): 6 Height (Inches): 1.00 Weight (Pounds): 226 Objective Sp02 EP Interpretation: reviewed General: nv, confused, sedated Heent: bilateral eye normal inspection, bilateral eye PERRL ++Ng Respiratory: normal breath sounds, no respiratory distress, intubated/vent +++ Cardiovascular: regular rate, rhythm, no edema Gastrointestinal: normal inspection, soft, non-distended Rectal: deferred Musculoskeletal: normal range of motion, non-tender, R fem cath++ Neurologic: alert, motor strength/tone normal, sensory intact, responsive, speech normal Skin: Decubitus/Ulcer - See RN skin exam. : jamaal+ Greg Cabral MD July 04, 2019 10:57
--- NOTE | 2019-07-04 13:38 | Surgery Progress Note ---
Surgery Progress Note Subjective Procedure Performed Right femoral temporary hemodialysis catheter insertion Additional Comments receiving HD more responsive and agitated now labs noted Objective Last 24 Hour Vital Signs Date Time Temp Pulse Resp B/P (MAP) Pulse Ox O2 Delivery O2 Flow Rate FiO2 07/04/19 13:00 114 22 98/68 (78) 97 07/04/19 12:00 98.5 130 31 129/83 (98) 100 07/04/19 12:00 119 07/04/19 12:00 Mechanical Ventilator 07/04/19 11:02 88 27 30 07/04/19 11:00 88 15 113/71 (85) 99 07/04/19 10:00 84 16 125/69 (87) 99 07/04/19 09:42 99 07/04/19 09:42 30 07/04/19 09:00 93 39 128/67 (87) 99 07/04/19 08:00 84 07/04/19 08:00 30 07/04/19 08:00 98.7 84 13 130/63 (85) 99 07/04/19 08:00 Mechanical Ventilator 07/04/19 07:11 86 25 100 Mechanical Ventilator 30 85 26 30 07/04/19 07:00 88 22 109/62 (78) 99 07/04/19 06:30 94 17 07/04/19 06:00 94 17 116/64 (81) 99 07/04/19 05:00 99 20 122/69 (86) 98 07/04/19 04:00 30 07/04/19 04:00 82 07/04/19 04:00 98.9 88 25 120/64 (82) 99 07/04/19 04:00 Mechanical Ventilator 07/04/19 03:02 86 26 100 Mechanical Ventilator 30 86 26 30 07/04/19 03:00 87 25 121/67 (85) 100 07/04/19 02:00 90 25 128/64 (85) 100 07/04/19 01:00 88 26 109/65 (80) 99 07/04/19 00:00 99.1 86 27 143/79 (100) 97 07/04/19 00:00 Mechanical Ventilator 07/04/19 00:00 82 07/03/19 23:04 87 26 100 Mechanical Ventilator 30 88 26 30 07/03/19 23:00 87 27 132/69 (90) 96 07/03/19 23:00 132/69 07/03/19 22:00 84 26 126/63 (84) 100 07/03/19 21:00 83 27 132/69 (90) 99 07/03/19 20:00 98.7 81 27 123/67 (85) 100 07/03/19 20:00 30 07/03/19 20:00 82 07/03/19 20:00 Mechanical Ventilator 07/03/19 19:15 89 27 100 Mechanical Ventilator 30 88 26 30 07/03/19 19:00 86 27 122/66 (84) 98 07/03/19 18:00 84 20 113/63 (80) 100 07/03/19 17:00 82 22 140/67 (91) 100 07/03/19 16:00 Mechanical Ventilator 07/03/19 16:00 30 07/03/19 16:00 85 07/03/19 16:00 97.5 85 23 109/60 (76) 100 07/03/19 15:14 86 26 100 Mechanical Ventilator 30 88 26 30 07/03/19 15:00 85 23 130/70 (90) 100 07/03/19 14:00 87 27 140/67 (91) 100 I&O Intake and Output 07/03/19 07/04/19 19:00 07:00 Intake Total 980 ml 834 ml Output Total 65 ml 5 ml Balance 915 ml 829 ml Free Water 200 ml 260 ml IV Total 154 ml Tube Feeding 420 ml 420 ml Other 360 ml Output Urine Total 65 ml 5 ml # Bowel Movements 1 3 Dressing: other Wound: other Drains: other Cardiovascular: RSR Respiratory: decreased breath sounds Abdomen: soft, non-tender, present bowel sounds Extremities: edema, no tenderness, no cyanosis Laboratory Tests Test 07/04/19 04:00 White Blood Count 13.1 K/UL (4.8-10.8) H Red Blood Count 2.95 M/UL (4.70-6.10) L Hemoglobin 8.5 G/DL (14.2-18.0) L Hematocrit 27.2 % (42.0-52.0) L Mean Corpuscular Volume 92 FL (80-99) Mean Corpuscular Hemoglobin 28.7 PG (27.0-31.0) Mean Corpuscular Hemoglobin Concent 31.1 G/DL (32.0-36.0) L Red Cell Distribution Width 16.7 % (11.6-14.8) H Platelet Count 491 K/UL (150-450) H Mean Platelet Volume 5.6 FL (6.5-10.1) L Neutrophils (%) (Auto) 81.4 % (45.0-75.0) H Lymphocytes (%) (Auto) 11.1 % (20.0-45.0) L Monocytes (%) (Auto) 5.0 % (1.0-10.0) Eosinophils (%) (Auto) 2.0 % (0.0-3.0) Basophils (%) (Auto) 0.5 % (0.0-2.0) Sodium Level 143 MMOL/L (136-145) Potassium Level 3.3 MMOL/L (3.5-5.1) L Chloride Level 98 MMOL/L (98-107) Carbon Dioxide Level 27 MMOL/L (21-32) Anion Gap 18 mmol/L (5-15) H Blood Urea Nitrogen 67 mg/dL (7-18) H Creatinine 9.4 MG/DL (0.55-1.30) H Estimat Glomerular Filtration Rate 5.6 mL/min (>60) Glucose Level 146 MG/DL (74-106) H Calcium Level 8.8 MG/DL (8.5-10.1) Plan Problems: (1) Suspected COVID-19 virus infection (2) HTN (hypertension) (3) CASSANDRA (acute kidney injury) Assessment & Plan: Needs urgent HD needs access patient okay and consented see note will follow with recs new line placed discussed with team and nephrology HD line functional when checked has TPA now please use appropriately Cathflo used again this flow during dialysis on 430 was low. Will monitor may need line change 5/4 plan for HD as per renal may need to take fluid off with HD edema anasarca dressings saturated and changed will monitor cont with HD (4) Anemia in chronic kidney disease (CKD) (5) Anemia (6) Renal failure (7) Suspected COVID-19 virus infection Assessment & Plan: Pt deconditioned and despite all skin preventions Pt noted to have developed several pressure injuries. . Stable dry eschar noted to clefts of R and L ears. No erythema noted . DTPI noted to L trochanter. Base of injury is maroon in colour with marginal erythema along borders. Partially opened DTPI Sacrum, R and L Buttocks. Base of wound is maroon with two small open wounds L sacrum and L buttocks. Pt has an APM/MOMO Mattress overlay and is being positioned with pillows as per tolerance and within protocols. worsening despite medical efforts will cont to provide therapy Tx.Plan: Apply Cavilon Skin Barrier to both ears Daily and prn. Apply Moisture Barrier Paste to Sacrum,R and L Buttocks. Cover with Optifoam drsgs. Change every 3 days and PRN. Apply Cavilon Skin Barrier to R and L trochanter. Cover each site with Optifoam drsgs.Change every 7 days and PRN. Apply Cavilon Skin Barrier to both heels. Cover each heel with Optifoam drsg. Change every 7 days and prn. Off-load heels with pillow. Reposition at least every 2hours or as tolerated. APM/MOMO Mattress overlay. (8) COVID-19 Assessment & Plan: COVID + c diff negative febrile leukocytosis renal insufficiency see above cont resp care Rx as per ID worsening on vent support now cxr noted on pressors prognosis guarded repeat covid ++ weaning vent and pressors off slowly showing improvement Yaniv Mast July 04, 2019 13:38
--- NOTE | 2019-07-04 15:44 | General Progress Note ---
Assessment/Plan Problem List: (1) HTN (hypertension) ICD Codes: I10 - Essential (primary) hypertension SNOMED: 64799845 (2) CASSANDRA (acute kidney injury) ICD Codes: N17.9 - Acute kidney failure, unspecified SNOMED: 9789656, 48385992 (3) Anemia in chronic kidney disease (CKD) ICD Codes: N18.9 - Chronic kidney disease, unspecified; D63.1 - Anemia in chronic kidney disease SNOMED: 354793918 (4) Renal failure ICD Codes: N19 - Unspecified kidney failure SNOMED: 83295797 (5) Respiratory failure requiring intubation ICD Codes: J96.90 - Respiratory failure, unspecified, unspecified whether with hypoxia or hypercapnia; A41.89 - Other specified sepsis SNOMED: 565131138, 336238116 (6) Pneumonia due to COVID-19 virus ICD Codes: U07.1 - COVID-19; J12.89 - Other viral pneumonia SNOMED: 082497835, 324429518 (7) Sepsis due to severe acute respiratory syndrome coronavirus 2 (SARS-CoV-2) ICD Codes: U07.1 - COVID-19; A41.89 - Other specified sepsis SNOMED: 079364170, 296591658 Assessment/Plan: pna diaylsis per renal lyte abnormality supportive therapy anemia covid pna resp insuff Subjective ROS Limited/Unobtainable: Yes Allergies: Coded Allergies: No Known Allergies (Unverified , 05/28/19) Objective Last 24 Hour Vital Signs Date Time Temp Pulse Resp B/P (MAP) Pulse Ox O2 Delivery O2 Flow Rate FiO2 07/04/19 15:00 98 10 104/66 (79) 93 07/04/19 14:00 105 28 115/76 (89) 98 07/04/19 13:00 114 22 98/68 (78) 97 07/04/19 12:00 98.5 130 31 129/83 (98) 100 07/04/19 12:00 119 07/04/19 12:00 Mechanical Ventilator 07/04/19 11:02 88 27 30 07/04/19 11:00 88 15 113/71 (85) 99 07/04/19 10:00 84 16 125/69 (87) 99 07/04/19 09:42 99 07/04/19 09:42 30 07/04/19 09:00 93 39 128/67 (87) 99 07/04/19 08:00 84 07/04/19 08:00 30 07/04/19 08:00 98.7 84 13 130/63 (85) 99 07/04/19 08:00 Mechanical Ventilator 07/04/19 07:11 86 25 100 Mechanical Ventilator 30 85 26 30 07/04/19 07:00 88 22 109/62 (78) 99 07/04/19 06:30 94 17 07/04/19 06:00 94 17 116/64 (81) 99 07/04/19 05:00 99 20 122/69 (86) 98 07/04/19 04:00 30 07/04/19 04:00 82 07/04/19 04:00 98.9 88 25 120/64 (82) 99 07/04/19 04:00 Mechanical Ventilator 07/04/19 03:02 86 26 100 Mechanical Ventilator 30 86 26 30 07/04/19 03:00 87 25 121/67 (85) 100 07/04/19 02:00 90 25 128/64 (85) 100 07/04/19 01:00 88 26 109/65 (80) 99 07/04/19 00:00 99.1 86 27 143/79 (100) 97 07/04/19 00:00 Mechanical Ventilator 07/04/19 00:00 82 07/03/19 23:04 87 26 100 Mechanical Ventilator 30 88 26 30 07/03/19 23:00 87 27 132/69 (90) 96 07/03/19 23:00 132/69 07/03/19 22:00 84 26 126/63 (84) 100 07/03/19 21:00 83 27 132/69 (90) 99 07/03/19 20:00 98.7 81 27 123/67 (85) 100 07/03/19 20:00 30 07/03/19 20:00 82 07/03/19 20:00 Mechanical Ventilator 07/03/19 19:15 89 27 100 Mechanical Ventilator 30 88 26 30 07/03/19 19:00 86 27 122/66 (84) 98 07/03/19 18:00 84 20 113/63 (80) 100 07/03/19 17:00 82 22 140/67 (91) 100 5/23/20 16:00 Mechanical Ventilator 07/03/19 16:00 30 07/03/19 16:00 85 07/03/19 16:00 97.5 85 23 109/60 (76) 100 Intake and Output 07/03/19 07/04/19 19:00 07:00 Intake Total 980 ml 834 ml Output Total 65 ml 5 ml Balance 915 ml 829 ml Free Water 200 ml 260 ml IV Total 154 ml Tube Feeding 420 ml 420 ml Other 360 ml Output Urine Total 65 ml 5 ml # Bowel Movements 1 3 Laboratory Tests 07/04/19 04:00: White Blood Count 13.1H, Red Blood Count 2.95L, Hemoglobin 8.5L, Hematocrit 27.2L, Mean Corpuscular Volume 92, Mean Corpuscular Hemoglobin 28.7, Mean Corpuscular Hemoglobin Concent 31.1L, Red Cell Distribution Width 16.7H, Platelet Count 491H, Mean Platelet Volume 5.6L, Neutrophils (%) (Auto) 81.4H, Lymphocytes (%) (Auto) 11.1L, Monocytes (%) (Auto) 5.0, Eosinophils (%) (Auto) 2.0, Basophils (%) (Auto) 0.5, Sodium Level 143, Potassium Level 3.3L, Chloride Level 98, Carbon Dioxide Level 27, Anion Gap 18H, Blood Urea Nitrogen 67H, Creatinine 9.4H, Estimat Glomerular Filtration Rate 5.6, Glucose Level 146H, Calcium Level 8.8 Karishma Mulligan MD July 04, 2019 15:44
--- NOTE | 2019-07-04 16:52 | Cardiac Electrophysiology PN ---
Assessment/Plan Assessment/Plan 1. Elevated troponin. Low level and flat due to renal failure. On Aspirin. EF 60 %. 2. S/P Septic shock. Off Levo 3. ESRD, on HD per Dr. Cole. 4. COVID-19 positive pneumonia. On the Vent with 30% Fio2. Fu by Dr. Mckeon. Failed weaning 5. MRSA carrier. 6. COPD. 7. Anemia. 8. Depression. DW RN Subjective Subjective Is Covid positive x 3 in isolation in ICU, On vent on 30% Fio2, PEEP 5. Off pressors. Had HD today Objective Last 24 Hour Vital Signs Date Time Temp Pulse Resp B/P (MAP) Pulse Ox O2 Delivery O2 Flow Rate FiO2 07/04/19 16:00 94 07/04/19 16:00 Mechanical Ventilator 07/04/19 16:00 96 26 110/67 (81) 97 07/04/19 16:00 30 07/04/19 15:08 97 25 100 Mechanical Ventilator 30 78 25 30 07/04/19 15:00 98 26 104/66 (79) 93 07/04/19 14:00 105 28 115/76 (89) 98 07/04/19 13:00 114 22 98/68 (78) 97 07/04/19 12:00 98.5 130 31 129/83 (98) 100 07/04/19 12:00 119 07/04/19 12:00 30 07/04/19 12:00 Mechanical Ventilator 07/04/19 11:02 88 27 30 07/04/19 11:00 88 15 113/71 (85) 99 07/04/19 10:00 84 16 125/69 (87) 99 07/04/19 09:42 99 07/04/19 09:42 30 07/04/19 09:00 93 39 128/67 (87) 99 07/04/19 08:00 84 07/04/19 08:00 30 07/04/19 08:00 98.7 84 13 130/63 (85) 99 07/04/19 08:00 Mechanical Ventilator 07/04/19 07:11 86 25 100 Mechanical Ventilator 30 85 26 30 07/04/19 07:00 88 22 109/62 (78) 99 07/04/19 06:30 94 17 07/04/19 06:00 94 17 116/64 (81) 99 07/04/19 05:00 99 20 122/69 (86) 98 07/04/19 04:00 30 07/04/19 04:00 82 07/04/19 04:00 98.9 88 25 120/64 (82) 99 07/04/19 04:00 Mechanical Ventilator 07/04/19 03:02 86 26 100 Mechanical Ventilator 30 86 26 30 07/04/19 03:00 87 25 121/67 (85) 100 07/04/19 02:00 90 25 128/64 (85) 100 07/04/19 01:00 88 26 109/65 (80) 99 07/04/19 00:00 99.1 86 27 143/79 (100) 97 07/04/19 00:00 Mechanical Ventilator 07/04/19 00:00 82 07/03/19 23:04 87 26 100 Mechanical Ventilator 30 88 26 30 07/03/19 23:00 87 27 132/69 (90) 96 07/03/19 23:00 132/69 07/03/19 22:00 84 26 126/63 (84) 100 07/03/19 21:00 83 27 132/69 (90) 99 07/03/19 20:00 98.7 81 27 123/67 (85) 100 07/03/19 20:00 30 07/03/19 20:00 82 07/03/19 20:00 Mechanical Ventilator 07/03/19 19:15 89 27 100 Mechanical Ventilator 30 88 26 30 07/03/19 19:00 86 27 122/66 (84) 98 07/03/19 18:00 84 20 113/63 (80) 100 07/03/19 17:00 82 22 140/67 (91) 100 Intake and Output 07/03/19 07/04/19 19:00 07:00 Intake Total 980 ml 834 ml Output Total 65 ml 5 ml Balance 915 ml 829 ml Free Water 200 ml 260 ml IV Total 154 ml Tube Feeding 420 ml 420 ml Other 360 ml Output Urine Total 65 ml 5 ml # Bowel Movements 1 3 Laboratory Tests Test 07/04/19 04:00 White Blood Count 13.1 K/UL (4.8-10.8) H Red Blood Count 2.95 M/UL (4.70-6.10) L Hemoglobin 8.5 G/DL (14.2-18.0) L Hematocrit 27.2 % (42.0-52.0) L Mean Corpuscular Volume 92 FL (80-99) Mean Corpuscular Hemoglobin 28.7 PG (27.0-31.0) Mean Corpuscular Hemoglobin Concent 31.1 G/DL (32.0-36.0) L Red Cell Distribution Width 16.7 % (11.6-14.8) H Platelet Count 491 K/UL (150-450) H Mean Platelet Volume 5.6 FL (6.5-10.1) L Neutrophils (%) (Auto) 81.4 % (45.0-75.0) H Lymphocytes (%) (Auto) 11.1 % (20.0-45.0) L Monocytes (%) (Auto) 5.0 % (1.0-10.0) Eosinophils (%) (Auto) 2.0 % (0.0-3.0) Basophils (%) (Auto) 0.5 % (0.0-2.0) Sodium Level 143 MMOL/L (136-145) Potassium Level 3.3 MMOL/L (3.5-5.1) L Chloride Level 98 MMOL/L (98-107) Carbon Dioxide Level 27 MMOL/L (21-32) Anion Gap 18 mmol/L (5-15) H Blood Urea Nitrogen 67 mg/dL (7-18) H Creatinine 9.4 MG/DL (0.55-1.30) H Estimat Glomerular Filtration Rate 5.6 mL/min (>60) Glucose Level 146 MG/DL (74-106) H Calcium Level 8.8 MG/DL (8.5-10.1) Objective HEAD AND NECK: No JVD. Orally intubated LUNGS: Decreased breath sounds. CARDIOVASCULAR: Regular S1 and S2. Tachycardic. ABDOMEN: Soft. EXTREMITIES: No pitting edema. New Left FV Gio Engle MD July 04, 2019 16:52
[2019-07-04] MEDS: Dyna-Hex 2% Top Sol 2oz TOPIC SCH (19:58)
--- NOTE | 2019-07-04 22:42 | Pulmonolgy Critical Care Note ---
Critical Care - Asmt/Plan Assessment/Plan: Pulmonary CCM Progress Note HPI: Patient is a 68 year old man, retirement resident, admitted c/o shortness of breath, cough, noted to have Covid 19 Pneumonia, Respiratory Failure S/p intubation, CXR improving infiltrates ETT adjusted Septic Shock, pressors off Preserved EF FIO2 40%-50%, P5, adequate O2 sats, remains on ACVC, tolerate weaning, less sedated, minimal secretions For HD today Hyponatremia stable Anemic ID following See earlier Past Medical History: COPD, CKD, Hypertension, Anemia Allergies: No Known Allergies Improving Pulmonary Status on HD Physical Exam Vital Signs Noted Sedated on ventilator WDWN, no distress HEENT: NCAT,moist mm Chest: Occasional rhonchi Heart: HS1, HS2, RRR Abdomen: SNTND, no masses Extremities: Well perfused, no edema [employer]: No focal signs, no seizures, sedated Impression: COVID-19 virus infection Pneumonia Respiratory failure on ventilator Volume overload improving - on HD Hypotension on pressors Cardiomegaly Lymphopenia Elevated AST COPD Chronic Kidney Disease - HD H/o Hypertension Worsening anemia Plan: Antibiotics per ID HD Pressors PRN ACVC - wean as tolerated once pressors reduced/off ABG PRN [employer] Medications 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 Monitor cultures/viral studies PPX Hemodialysis per Renal Psychiatry following [facility] - [facility] requested for when available, [facility] - not available as yet Laboratory Tests Noted: CXR: Hypoventilatory exam, interstitial changes, cardiomegaly, improving infiltrates Subjective ROS Limited/Unobtainable: No Constitutional: Denies: fever Respiratory: Reports: dry cough, shortness of breath Gastrointestinal/Abdominal: Reports: diarrhea, other - colace was stopped Psychiatric: Reports: other - refuses labs Allergies: Coded Allergies: No Known Allergies (Unverified , 05/28/19) All Systems: reviewed and negative except above Labs noted Critical Care - Objective Last 24 Hour Vital Signs Date Time Temp Pulse Resp B/P (MAP) Pulse Ox O2 Delivery O2 Flow Rate FiO2 07/04/19 22:00 84 14 122/70 (87) 100 07/04/19 20:00 30 07/04/19 19:03 94 26 100 Mechanical Ventilator 30 95 26 30 07/04/19 19:00 87 17 95/63 (74) 100 07/04/19 18:00 99 13 117/73 (88) 99 5/24/20 17:00 100 15 116/68 (84) 100 07/04/19 16:00 94 07/04/19 16:00 Mechanical Ventilator 07/04/19 16:00 99.0 96 26 110/67 (81) 97 07/04/19 16:00 30 07/04/19 15:08 97 25 100 Mechanical Ventilator 30 78 25 30 07/04/19 15:00 98 26 104/66 (79) 93 07/04/19 14:00 105 28 115/76 (89) 98 07/04/19 13:00 114 22 98/68 (78) 97 07/04/19 12:00 98.5 130 31 129/83 (98) 100 07/04/19 12:00 119 07/04/19 12:00 30 07/04/19 12:00 Mechanical Ventilator 07/04/19 11:02 88 27 30 07/04/19 11:00 88 15 113/71 (85) 99 07/04/19 10:00 84 16 125/69 (87) 99 07/04/19 09:42 99 07/04/19 09:42 30 07/04/19 09:00 93 39 128/67 (87) 99 07/04/19 08:00 84 07/04/19 08:00 30 07/04/19 08:00 98.7 84 13 130/63 (85) 99 07/04/19 08:00 Mechanical Ventilator 07/04/19 07:11 86 25 100 Mechanical Ventilator 30 85 26 30 07/04/19 07:00 88 22 109/62 (78) 99 07/04/19 06:30 94 17 07/04/19 06:00 94 17 116/64 (81) 99 07/04/19 05:00 99 20 122/69 (86) 98 07/04/19 04:00 30 07/04/19 04:00 82 07/04/19 04:00 98.9 88 25 120/64 (82) 99 07/04/19 04:00 Mechanical Ventilator 07/04/19 03:02 86 26 100 Mechanical Ventilator 30 86 26 30 07/04/19 03:00 87 25 121/67 (85) 100 07/04/19 02:00 90 25 128/64 (85) 100 07/04/19 01:00 88 26 109/65 (80) 99 07/04/19 00:00 99.1 86 27 143/79 (100) 97 07/04/19 00:00 Mechanical Ventilator 07/04/19 00:00 82 07/03/19 23:04 87 26 100 Mechanical Ventilator 30 88 26 30 07/03/19 23:00 87 27 132/69 (90) 96 07/03/19 23:00 132/69 Accucheck: 153 Critical Care - Subjective ROS Limited/Unobtainable: No Condition: stable IV Access: central FI02: 30 Vent Support Breath Rate: 26 Vent Support Mode: AC Vent Tidal Volume: 500 Sputum Amount: Moderate PEEP: 5.0 PIP: 31 Tube Feeding Amount: 35 I&O: Intake and Output 07/03/19 07/04/19 19:00 07:00 Intake Total 980 ml 834 ml Output Total 65 ml 5 ml Balance 915 ml 829 ml Free Water 200 ml 260 ml IV Total 154 ml Tube Feeding 420 ml 420 ml Other 360 ml Output Urine Total 65 ml 5 ml # Bowel Movements 1 3 ET-Tube: 7.5 ET Position: 24 Arturo Mckeon MD July 04, 2019 22:42
[2019-07-04] MEDS: NOREPINEPHRINE BITARTRATE IV SCH ×3 (23:00)
[2019-07-04] MEDS: D5W IV SCH ×3 (23:00)
[2019-07-05] VITALS (32 sets, daily range): BP systolic 88–144; BP diastolic 54–79
[2019-07-05] MEDS: Albuterol 90mcg Inhaler 8gm INH SCH ×6 (02:30→23:29)
[2019-07-05] MEDS: Renvela 800mg Pkt NG SCH ×3 (05:52→21:50)
[2019-07-05 05:59] LABS: BASOPHILS % (AUTO) 0.6 % (0.0-2.0); EOSINOPHILS % (AUTO) 2.3 % (0.0-3.0); HEMATOCRIT 28.7 % (42.0-52.0); LYMPHOCYTES % (AUTO) 13.6 % (20.0-45.0); MEAN CORPUSCULAR VOLUME 92 FL (80-99); NEUTROPHILS % (AUTO) 77.5 % (45.0-75.0); PLATELET COUNT 512 K/UL (150-450); RED BLOOD COUNT 3.11 M/UL (4.70-6.10); RED CELL DISTRIBUTION WIDTH 16.7 % (11.6-14.8); WHITE BLOOD COUNT 12.6 K/UL (4.8-10.8)
[2019-07-05] MEDS: fentaNYL 2500mcg/NS 250ml IV SCH (06:00)
[2019-07-05] MEDS: NovoLOG Insulin Flexpen SUBQ SCH ×4 (06:01→23:34)
[2019-07-05 06:20] LABS: ALANINE AMINOTRANSFERASE 16 U/L (12-78); ALBUMIN 2.8 G/DL (3.4-5.0); ALBUMIN/GLOBULIN RATIO 0.4 (1.0-2.7); ALKALINE PHOSPHATASE 94 U/L (46-116); ANION GAP 16 mmol/L (5-15); ASPARTATE AMINO TRANSFERASE 27 U/L (15-37); BILIRUBIN,TOTAL 0.4 MG/DL (0.2-1.0); BLOOD UREA NITROGEN 50 mg/dL (7-18); CALCIUM 9.6 MG/DL (8.5-10.1); CARBON DIOXIDE 28 MMOL/L (21-32); CHLORIDE 95 MMOL/L (98-107); CREATININE 7.2 MG/DL (0.55-1.30); POTASSIUM 3.4 MMOL/L (3.5-5.1); SODIUM 139 MMOL/L (136-145)
[2019-07-05 06:34] LABS: PHOSPHORUS 4.7 MG/DL (2.5-4.9)
--- NOTE | 2019-07-05 07:49 | General Progress Note ---
Assessment/Plan Status: unchanged Assessment/Plan: 1. Diabetes. 2. Hypertension. 3. Coronary artery disease. 4. COPD. 5. Psychiatric disorder with schizophrenia. 6. History of hepatitis C. 7. HLP. 8. Chronic kidney disease, now with acute renal failure. 9. Anemia. 10. Hypothyroidism. 11. Spinal stenosis. 12. Constipation. 13. GERD. 14. COVID positive HD per nephrology weaning, pending extubation d/w the nurse recent labs and notes reviewed stable H&H NGTF at 40 cc will dc colace will fu Subjective ROS Limited/Unobtainable: No Allergies: Coded Allergies: No Known Allergies (Unverified , 05/28/19) Objective Last 24 Hour Vital Signs Date Time Temp Pulse Resp B/P (MAP) Pulse Ox O2 Delivery O2 Flow Rate FiO2 07/05/19 07:29 99 07/05/19 07:25 115 26 99 Mechanical Ventilator 30 115 26 30 07/05/19 07:00 117 31 97/68 (78) 100 07/05/19 06:30 120 17 07/05/19 06:00 124 26 108/78 (88) 100 07/05/19 05:00 126 28 107/63 (78) 98 07/05/19 04:00 98.4 110 26 144/70 (94) 97 07/05/19 04:00 30 07/05/19 04:00 Mechanical Ventilator 07/05/19 04:00 96 07/05/19 03:00 95 26 112/65 (81) 99 07/05/19 02:38 88 26 95 Mechanical Ventilator 30 89 26 30 07/05/19 02:00 97 20 121/70 (87) 100 07/05/19 01:00 90 25 117/63 (81) 100 07/05/19 00:00 84 07/05/19 00:00 30 07/05/19 00:00 Mechanical Ventilator 07/05/19 00:00 98.4 84 26 100/64 (76) 100 07/04/19 23:00 123/69 07/04/19 23:00 84 24 123/69 (87) 100 07/04/19 22:55 83 26 100 Mechanical Ventilator 30 88 26 30 07/04/19 22:00 84 26 122/70 (87) 100 07/04/19 20:15 90 26 102/59 (73) 100 07/04/19 20:00 98.6 91 26 123/70 (87) 100 07/04/19 20:00 91 07/04/19 20:00 30 07/04/19 20:00 Mechanical Ventilator 07/04/19 19:03 94 26 100 Mechanical Ventilator 30 95 26 30 07/04/19 19:00 87 17 95/63 (74) 100 07/04/19 18:00 99 13 117/73 (88) 99 07/04/19 17:00 100 15 116/68 (84) 100 07/04/19 16:00 94 07/04/19 16:00 Mechanical Ventilator 07/04/19 16:00 99.0 96 26 110/67 (81) 97 07/04/19 16:00 30 07/04/19 15:08 97 25 100 Mechanical Ventilator 30 78 25 30 07/04/19 15:00 98 26 104/66 (79) 93 07/04/19 14:00 105 28 115/76 (89) 98 07/04/19 13:00 114 22 98/68 (78) 97 07/04/19 12:00 98.5 130 31 129/83 (98) 100 07/04/19 12:00 119 07/04/19 12:00 30 07/04/19 12:00 Mechanical Ventilator 07/04/19 11:02 88 27 30 07/04/19 11:00 88 15 113/71 (85) 99 07/04/19 10:00 84 16 125/69 (87) 99 07/04/19 09:42 99 07/04/19 09:42 30 07/04/19 09:00 93 39 128/67 (87) 99 07/04/19 08:00 84 07/04/19 08:00 30 07/04/19 08:00 98.7 84 13 130/63 (85) 99 07/04/19 08:00 Mechanical Ventilator Intake and Output 07/04/19 07/05/19 19:00 07:00 Intake Total 360 ml 420 ml Output Total 2005 ml 5 ml Balance -1645 ml 415 ml Free Water 10 ml Tube Feeding 350 ml 420 ml Output Urine Total 5 ml 5 ml Hemodialysis UF 2000 ml # Bowel Movements 2 Laboratory Tests 07/05/19 04:30: White Blood Count 12.6H, Red Blood Count 3.11L, Hemoglobin 9.0L, Hematocrit 28.7L, Mean Corpuscular Volume 92, Mean Corpuscular Hemoglobin 28.8, Mean Corpuscular Hemoglobin Concent 31.2L, Red Cell Distribution Width 16.7H, Platelet Count 512H, Mean Platelet Volume 6.1L, Neutrophils (%) (Auto) 77.5H, Lymphocytes (%) (Auto) 13.6L, Monocytes (%) (Auto) 6.0, Eosinophils (%) (Auto) 2.3, Basophils (%) (Auto) 0.6, Sodium Level 139, Potassium Level 3.4L, Chloride Level 95L, Carbon Dioxide Level 28, Anion Gap 16H, Blood Urea Nitrogen 50H, Creatinine 7.2H, Estimat Glomerular Filtration Rate 7.7, Glucose Level 163H, Calcium Level 9.6, Phosphorus Level 4.7, Magnesium Level 2.6H, Total Bilirubin 0.4, Aspartate Amino Transf (AST/SGOT) 27, Alanine Aminotransferase (ALT/SGPT) 16, Alkaline Phosphatase 94, C-Reactive Protein, Quantitative 12.6H, Pro-B-Type Natriuretic Peptide [id number], Total Protein 9.7H, Albumin 2.8L, Globulin 6.9, Albumin/Globulin Ratio 0.4L, Random Vancomycin Level 21.2 Height (Feet): 6 Height (Inches): 1.00 Weight (Pounds): 226 General Appearance: lethargic EENT: normal ENT inspection Neck: normal alignment Cardiovascular: normal rate Respiratory/Chest: decreased breath sounds Abdomen: normal bowel sounds, non tender, soft Extremities: non-tender Marito Ramires MD July 05, 2019 07:49
[2019-07-05] MEDS: Acetaminophen 650mg/20.3ml NG PRN (08:15)
[2019-07-05] MEDS: Pantoprazole Inj IVP SCH (08:16)
[2019-07-05] MEDS: Midodrine 10mg tab NG SCH ×3 (08:16→17:54)
[2019-07-05] MEDS: Enoxaparin 30mg Inj SUBQ SCH (08:21)
--- NOTE | 2019-07-05 10:19 | Hematology/Onc Progress Note ---
Assessment/Plan Assessment/Plan Assessment and Recs: # Anemia of chronic disease, likely related ot underlying kidney disease has COIVD19++++++ --> hgb trend 9-->8-->7.3-->7.9-->6.8->9.5-->10->8.3-->7.7-->7.1-->8.9->8.8->7.7 -->8.1 ->7.9-->7.7 -->8.2-->8.1 -->7.9-->8.5 -->9 --> transfuse as needed, hgb goal >7 --> no evidence of hemolysis --> peripheral smear has been reviewed --> epogen started three x a week ==>> transfuse 06/08, 06/15, # Leukocytosis likely related to suspected COVID-19 virus infection --> completed plaquenil --> trend smear as needed --> initially 4-->11-->14.5-->21-->26-->21->24--.28-->23-->19-->16.2-->21--> 11.2 -->12.5-->12.3-->12.4 --> pulm is aware --> on abx cefepime/vanc->zosyn/vanc --> pressors as needed --> 06/27 covid 19++ # Thrombocytopenia/Lymphopenia --> likely related to covid19 --> plt 129k-->186k-->251-->285-->384 -->430-->539-->515 --> abx # Respiratory failure with covid19+ --> s/p vent --> weaning # Possible Pneumonia --> abx completed # Cardiomegaly # Transaminitis with Elevated AST # COPD # Chronic Kidney Disease --> per renal hd --> s/p right femoral cath 07/02 # Hypertension # Dvt ppx lovenox Appreciate consultation and dw Rn Subjective Respiratory: Denies: no symptoms, cough, shortness of breath, SOB with excertion, SOB at rest, sputum, wheezing, other Gastrointestinal/Abdominal: Denies: no symptoms, abdomen distended, abdominal pain, black stools, tarry stools, blood in stool, constipated, diarrhea, difficulty swallowing, nausea, poor appetite, poor fluid intake, rectal bleeding , vomiting, other Genitourinary: Denies: no symptoms, burning, discharge, frequency, flank pain, hematuria, incontinence, pain, urgency, other Neurologic/Psychiatric: Denies: no symptoms, anxiety, depressed, emotional problems, headache, numbness, paresthesia, pre-existing deficit, seizure, tingling, tremors, weakness, other Endocrine: Denies: no symptoms, excessive sweating, flushing, intolerance to cold, intolerance to heat, increased hunger, increased thirst, increased urine, unexplained weight gain, unexplained weight loss, other Allergies: Coded Allergies: No Known Allergies (Unverified , 05/28/19) Subjective 06/01 nv, extremely agitated, not allowing labs draws, no night sweats, cbc ordered 06/02 confused, restraints, on abx and plaquenil, hgb 7.9, nrb 15 L 06/03 is with nonrebreather, but not compliant, remains confused 06/05 no bleeding, labs noted, no major bleeding, otherwise comfortable 06/06 labs reviewed, no bleeding, meds noted, no night sweats, on levo and nonrebreather 06/07 labs noted, no bleeding, meds reviewed, no bleeding, wbc higher 06/08 to get 2 units prbc, no night sweats, meds reviewed 06/09 is on cefepime and vanc, labs noted, ernesto Rn, no bleeding 06/10 no major changes, labs reviewed, wbc 28k, on abx, cefepime 06/12 remains in icu, labs noted, no night sweats or bleeding 06/13 sluggish pupils, remains agitated, per psych, no bleding, on vent, wbc sitll high 06/14 still confused, remains on vent, with ng, running nepro, on pressors 06/15 icu, febrile, non verbal, hgb 7.1, blood pending, completed plaq 06/16 remains in the icu, nonverbal, plan for hd tomorrow, ernesto rn 06/17 in icu, on pressor, nonverbal, on abx, no bleeding 5/10 no bleeding, nonverbal in icu, hgb is 7.7 06/20 on zosyn, tube feeds, vent, labs noted, in icu, nv 06/21 gettng hd as per renal, in icu, nv, no bleeding, tfs 06/22 icu, cxr with slight improvement, cooling blanket, weaning today 06/23 wewaning, in icu, on vent, abx, and pressors as needed, labs noted 06/24 failed weaning, off abx, completed plaquenil, hgb 8.1 06/26 icu, weaning for this am, afebrile, hgb 8 06/27 in icu, remains comotose, weaning started on peep, no night sweats 06/28 weaning today, off abx, restraints, no distress, h/h stable 06/29 covid 19+, failed weaning, no blood transfusion needed 06/30 icu, on vent, labs reviewed, no distress 07/01 in icu, may need trach, remains on hd per renal, labs noted 07/02 s/p right fem cath, failed wean, no new orders, h/h stable 07/03 is somewhat more responsive, on abx, no bleeding, weaning and HD today 07/04 hd as per renal, weaning off vent, no bleeding today Objective Objective Current Medications Medications (Trade) Dose Ordered Sig/Anthony Route PRN Reason Start Time Stop Time Status Last Admin Dose Admin Acetaminophen (Tylenol) 650 mg Q4H PRN NG Temp >100.5 06/13/19 11:00 07/13/19 10:59 07/05/19 08:15 Albuterol Sulfate (Proventil MDI) 2 puff Q4HRT INH 06/06/19 23:00 08/30/19 18:59 07/05/19 07:25 Chlorhexidine Gluconate (Michelle-Hex 2%) 1 applic DAILY@1999 TOPIC 06/07/19 20:00 09/05/19 19:59 07/04/19 19:58 Dextrose (Dextrose 50%) 25 ml Q30M PRN IV Hypoglycemia 06/20/19 19:30 09/18/19 19:29 Dextrose (Dextrose 50%) 50 ml Q30M PRN IV Hypoglycemia 06/20/19 19:30 09/18/19 19:29 Dopamine HCl/ Dextrose 250 ml @ 0 mls/hr Q24H PRN IV For hypotension 06/13/19 08:15 09/11/19 08:14 Enoxaparin Sodium (Lovenox) 30 mg DAILY SUBQ 06/07/19 09:00 08/27/19 08:59 07/05/19 08:21 Epoetin Aftab (Epoetin Aftab(ESRD on dialysis)) 10,000 unit FRI-FRI-FRI SUBQ 06/07/19 21:00 08/31/19 20:59 07/02/19 21:47 Fentanyl Citrate 250 ml @ 0 mls/hr Q24H IV 06/24/19 06:00 09/22/19 05:59 07/02/19 11:50 Hydralazine HCl (Apresoline) 10 mg Q4H PRN IV Blood pressure over 160 systol 06/07/19 10:15 09/05/19 10:14 Insulin Aspart (NovoLOG) EVERY 6 HOURS SUBQ 06/21/19 00:00 09/19/19 00:00 07/05/19 06:01 Metoclopramide HCl (Reglan) 5 mg Q8H PRN IVP Nausea & Vomiting 06/18/19 12:00 07/18/19 11:59 06/19/19 00:50 Midodrine (Pro-Amatine) 10 mg THREE TIMES A DAY NG 06/09/19 13:00 09/07/19 12:59 07/05/19 08:16 Norepinephrine Bitartrate 8 mg/ Dextrose 283 ml @ 0 mls/hr Q24H IV 06/23/19 23:00 07/23/19 22:59 06/25/19 14:38 Pantoprazole (Protonix) 40 mg DAILY IVP 06/19/19 09:00 07/19/19 08:59 07/05/19 08:16 Potassium Chloride (K-Dur) 20 meq ONCE NG 07/05/19 09:45 07/05/19 11:00 07/05/19 10:13 Sevelamer Carbonate (Renvela) 1,600 mg Q8HR NG 06/25/19 22:00 09/05/19 12:59 07/05/19 05:52 Vancomycin HCl (Vanco rx to dose) 1 ea DAILY PRN MISC Per rx protocol 07/01/19 11:00 07/31/19 10:59 Last 24 Hour Vital Signs Date Time Temp Pulse Resp B/P (MAP) Pulse Ox O2 Delivery O2 Flow Rate FiO2 07/05/19 10:00 105 19 118/72 (87) 100 07/05/19 09:00 108 26 105/69 (81) 100 07/05/19 08:00 99.5 112 26 99/64 (76) 99 07/05/19 08:00 Mechanical Ventilator 07/05/19 08:00 30 07/05/19 08:00 114 07/05/19 07:29 99 07/05/19 07:25 115 26 99 Mechanical Ventilator 30 115 26 30 07/05/19 07:00 117 31 97/68 (78) 100 07/05/19 06:30 120 17 07/05/19 06:00 124 26 108/78 (88) 100 07/05/19 05:00 126 28 107/63 (78) 98 07/05/19 04:00 98.4 110 26 144/70 (94) 97 07/05/19 04:00 30 07/05/19 04:00 Mechanical Ventilator 07/05/19 04:00 96 07/05/19 03:00 95 26 112/65 (81) 99 07/05/19 02:38 88 26 95 Mechanical Ventilator 30 89 26 30 07/05/19 02:00 97 20 121/70 (87) 100 07/05/19 01:00 90 25 117/63 (81) 100 07/05/19 00:00 84 07/05/19 00:00 30 07/05/19 00:00 Mechanical Ventilator 07/05/19 00:00 98.4 84 26 100/64 (76) 100 07/04/19 23:00 123/69 07/04/19 23:00 84 24 123/69 (87) 100 07/04/19 22:55 83 26 100 Mechanical Ventilator 30 88 26 30 07/04/19 22:00 84 26 122/70 (87) 100 07/04/19 20:15 90 26 102/59 (73) 100 07/04/19 20:00 98.6 91 26 123/70 (87) 100 07/04/19 20:00 91 07/04/19 20:00 30 07/04/19 20:00 Mechanical Ventilator 07/04/19 19:03 94 26 100 Mechanical Ventilator 30 95 26 30 07/04/19 19:00 87 17 95/63 (74) 100 07/04/19 18:00 99 13 117/73 (88) 99 07/04/19 17:00 100 15 116/68 (84) 100 07/04/19 16:00 94 07/04/19 16:00 Mechanical Ventilator 07/04/19 16:00 99.0 96 26 110/67 (81) 97 07/04/19 16:00 30 07/04/19 15:08 97 25 100 Mechanical Ventilator 30 78 25 30 07/04/19 15:00 98 26 104/66 (79) 93 07/04/19 14:00 105 28 115/76 (89) 98 07/04/19 13:00 114 22 98/68 (78) 97 07/04/19 12:00 98.5 130 31 129/83 (98) 100 07/04/19 12:00 119 07/04/19 12:00 30 07/04/19 12:00 Mechanical Ventilator 07/04/19 11:02 88 27 30 07/04/19 11:00 88 15 113/71 (85) 99 07/04/19 10:00 84 16 125/69 (87) 99 07/04/19 09:42 99 07/04/19 09:42 30 07/04/19 09:00 93 39 128/67 (87) 99 07/04/19 08:00 84 07/04/19 08:00 30 07/04/19 08:00 98.7 84 13 130/63 (85) 99 07/04/19 08:00 Mechanical Ventilator 07/04/19 07:11 86 25 100 Mechanical Ventilator 30 85 26 30 07/04/19 07:00 88 22 109/62 (78) 99 07/04/19 06:30 94 17 07/04/19 06:00 94 17 116/64 (81) 99 07/04/19 05:00 99 20 122/69 (86) 98 07/04/19 04:00 30 07/04/19 04:00 82 07/04/19 04:00 98.9 88 25 120/64 (82) 99 07/04/19 04:00 Mechanical Ventilator 07/04/19 03:02 86 26 100 Mechanical Ventilator 30 86 26 30 07/04/19 03:00 87 25 121/67 (85) 100 07/04/19 02:00 90 25 128/64 (85) 100 07/04/19 01:00 88 26 109/65 (80) 99 07/04/19 00:00 99.1 86 27 143/79 (100) 97 07/04/19 00:00 Mechanical Ventilator 07/04/19 00:00 82 07/03/19 23:04 87 26 100 Mechanical Ventilator 30 88 26 30 07/03/19 23:00 87 27 132/69 (90) 96 07/03/19 23:00 132/69 07/03/19 22:00 84 26 126/63 (84) 100 07/03/19 21:00 83 27 132/69 (90) 99 07/03/19 20:00 98.7 81 27 123/67 (85) 100 07/03/19 20:00 30 07/03/19 20:00 82 07/03/19 20:00 Mechanical Ventilator 07/03/19 19:15 89 27 100 Mechanical Ventilator 30 88 26 30 07/03/19 19:00 86 27 122/66 (84) 98 07/03/19 18:00 84 20 113/63 (80) 100 07/03/19 17:00 82 22 140/67 (91) 100 07/03/19 16:00 Mechanical Ventilator 07/03/19 16:00 30 07/03/19 16:00 85 07/03/19 16:00 97.5 85 23 109/60 (76) 100 07/03/19 15:14 86 26 100 Mechanical Ventilator 30 88 26 30 07/03/19 15:00 85 23 130/70 (90) 100 07/03/19 14:00 87 27 140/67 (91) 100 07/03/19 13:00 98 25 119/66 (83) 100 07/03/19 12:05 30 07/03/19 12:00 97.8 98 25 128/66 (86) 100 07/03/19 12:00 Mechanical Ventilator 07/03/19 11:00 87 28 119/64 (82) 100 07/03/19 10:54 112 27 98 Mechanical Ventilator 30 98 27 30 Intake and Output 07/04/19 07/05/19 19:00 07:00 Intake Total 360 ml 420 ml Output Total 2005 ml 5 ml Balance -1645 ml 415 ml Free Water 10 ml Tube Feeding 350 ml 420 ml Output Urine Total 5 ml 5 ml Hemodialysis UF 2000 ml # Bowel Movements 2 Labs Test 07/03/19 04:00 07/04/19 04:00 07/05/19 04:30 White Blood Count 12.4 K/UL (4.8-10.8) 13.1 K/UL (4.8-10.8) 12.6 K/UL (4.8-10.8) Red Blood Count 2.90 M/UL (4.70-6.10) 2.95 M/UL (4.70-6.10) 3.11 M/UL (4.70-6.10) Hemoglobin 8.5 G/DL (14.2-18.0) 8.5 G/DL (14.2-18.0) 9.0 G/DL (14.2-18.0) Hematocrit 26.9 % (42.0-52.0) 27.2 % (42.0-52.0) 28.7 % (42.0-52.0) Mean Corpuscular Volume 93 FL (80-99) 92 FL (80-99) 92 FL (80-99) Mean Corpuscular Hemoglobin 29.2 PG (27.0-31.0) 28.7 PG (27.0-31.0) 28.8 PG (27.0-31.0) Mean Corpuscular Hemoglobin Concent 31.5 G/DL (32.0-36.0) 31.1 G/DL (32.0-36.0) 31.2 G/DL (32.0-36.0) Red Cell Distribution Width 17.0 % (11.6-14.8) 16.7 % (11.6-14.8) 16.7 % (11.6-14.8) Platelet Count 446 K/UL (150-450) 491 K/UL (150-450) 512 K/UL (150-450) Mean Platelet Volume 6.1 FL (6.5-10.1) 5.6 FL (6.5-10.1) 6.1 FL (6.5-10.1) Neutrophils (%) (Auto) 76.5 % (45.0-75.0) 81.4 % (45.0-75.0) 77.5 % (45.0-75.0) Lymphocytes (%) (Auto) 11.3 % (20.0-45.0) 11.1 % (20.0-45.0) 13.6 % (20.0-45.0) Monocytes (%) (Auto) 8.5 % (1.0-10.0) 5.0 % (1.0-10.0) 6.0 % (1.0-10.0) Eosinophils (%) (Auto) 2.1 % (0.0-3.0) 2.0 % (0.0-3.0) 2.3 % (0.0-3.0) Basophils (%) (Auto) 1.6 % (0.0-2.0) 0.5 % (0.0-2.0) 0.6 % (0.0-2.0) Sodium Level 141 MMOL/L (136-145) 143 MMOL/L (136-145) 139 MMOL/L (136-145) Potassium Level 3.7 MMOL/L (3.5-5.1) 3.3 MMOL/L (3.5-5.1) 3.4 MMOL/L (3.5-5.1) Chloride Level 98 MMOL/L (98-107) 98 MMOL/L (98-107) 95 MMOL/L (98-107) Carbon Dioxide Level 26 MMOL/L (21-32) 27 MMOL/L (21-32) 28 MMOL/L (21-32) Anion Gap 17 mmol/L (5-15) 18 mmol/L (5-15) 16 mmol/L (5-15) Blood Urea Nitrogen 59 mg/dL (7-18) 67 mg/dL (7-18) 50 mg/dL (7-18) Creatinine 7.9 MG/DL (0.55-1.30) 9.4 MG/DL (0.55-1.30) 7.2 MG/DL (0.55-1.30) Estimat Glomerular Filtration Rate 6.9 mL/min (>60) 5.6 mL/min (>60) 7.7 mL/min (>60) Glucose Level 114 MG/DL (74-106) 146 MG/DL (74-106) 163 MG/DL (74-106) Calcium Level 8.8 MG/DL (8.5-10.1) 8.8 MG/DL (8.5-10.1) 9.6 MG/DL (8.5-10.1) Phosphorus Level 5.1 MG/DL (2.5-4.9) 4.7 MG/DL (2.5-4.9) Magnesium Level 2.4 MG/DL (1.8-2.4) 2.6 MG/DL (1.8-2.4) Total Bilirubin 0.5 MG/DL (0.2-1.0) 0.4 MG/DL (0.2-1.0) Aspartate Amino Transf (AST/SGOT) 27 U/L (15-37) 27 U/L (15-37) Alanine Aminotransferase (ALT/SGPT) 13 U/L (12-78) 16 U/L (12-78) Alkaline Phosphatase 82 U/L (46-116) 94 U/L (46-116) C-Reactive Protein, Quantitative 9.2 mg/dL (0.00-0.90) 12.6 mg/dL (0.00-0.90) Pro-B-Type Natriuretic Peptide > 74653 pg/mL (0-125) 56787 pg/mL (0-125) Total Protein 8.8 G/DL (6.4-8.2) 9.7 G/DL (6.4-8.2) Albumin 2.1 G/DL (3.4-5.0) 2.8 G/DL (3.4-5.0) Globulin 6.7 g/dL 6.9 g/dL Albumin/Globulin Ratio 0.3 (1.0-2.7) 0.4 (1.0-2.7) Random Vancomycin Level 25.0 ug/mL 21.2 ug/mL Height (Feet): 6 Height (Inches): 1.00 Weight (Pounds): 226 Objective Sp02 EP Interpretation: reviewed General: nv, confused, sedated Heent: bilateral eye normal inspection, bilateral eye PERRL ++Ng Respiratory: normal breath sounds, no respiratory distress, intubated/vent +++ Cardiovascular: regular rate, rhythm, no edema Gastrointestinal: normal inspection, soft, non-distended Rectal: deferred Musculoskeletal: normal range of motion, non-tender, R fem cath++ Neurologic: alert, motor strength/tone normal, sensory intact, responsive, speech normal Skin: Decubitus/Ulcer - See RN skin exam. : jamaal+ Greg Cabral MD July 05, 2019 10:19
--- NOTE | 2019-07-05 10:47 | Surgery Progress Note ---
Surgery Progress Note Subjective Procedure Performed Right femoral temporary hemodialysis catheter insertion Additional Comments labs noted had HD weaning off vent becoming more alert and almost trying to pull out lines / tubes Objective Last 24 Hour Vital Signs Date Time Temp Pulse Resp B/P (MAP) Pulse Ox O2 Delivery O2 Flow Rate FiO2 07/05/19 10:00 105 19 118/72 (87) 100 07/05/19 09:00 108 26 105/69 (81) 100 07/05/19 08:00 99.5 112 26 99/64 (76) 99 07/05/19 08:00 Mechanical Ventilator 07/05/19 08:00 30 07/05/19 08:00 114 07/05/19 07:29 99 07/05/19 07:25 115 26 99 Mechanical Ventilator 30 115 26 30 07/05/19 07:00 117 31 97/68 (78) 100 07/05/19 06:30 120 17 07/05/19 06:00 124 26 108/78 (88) 100 07/05/19 05:00 126 28 107/63 (78) 98 07/05/19 04:00 98.4 110 26 144/70 (94) 97 07/05/19 04:00 30 07/05/19 04:00 Mechanical Ventilator 07/05/19 04:00 96 07/05/19 03:00 95 26 112/65 (81) 99 07/05/19 02:38 88 26 95 Mechanical Ventilator 30 89 26 30 07/05/19 02:00 97 20 121/70 (87) 100 07/05/19 01:00 90 25 117/63 (81) 100 07/05/19 00:00 84 07/05/19 00:00 30 07/05/19 00:00 Mechanical Ventilator 07/05/19 00:00 98.4 84 26 100/64 (76) 100 07/04/19 23:00 123/69 07/04/19 23:00 84 24 123/69 (87) 100 07/04/19 22:55 83 26 100 Mechanical Ventilator 30 88 26 30 07/04/19 22:00 84 26 122/70 (87) 100 07/04/19 20:15 90 26 102/59 (73) 100 07/04/19 20:00 98.6 91 26 123/70 (87) 100 07/04/19 20:00 91 07/04/19 20:00 30 07/04/19 20:00 Mechanical Ventilator 07/04/19 19:03 94 26 100 Mechanical Ventilator 30 95 26 30 07/04/19 19:00 87 17 95/63 (74) 100 07/04/19 18:00 99 13 117/73 (88) 99 07/04/19 17:00 100 15 116/68 (84) 100 07/04/19 16:00 94 07/04/19 16:00 Mechanical Ventilator 07/04/19 16:00 99.0 96 26 110/67 (81) 97 07/04/19 16:00 30 07/04/19 15:08 97 25 100 Mechanical Ventilator 30 78 25 30 07/04/19 15:00 98 26 104/66 (79) 93 07/04/19 14:00 105 28 115/76 (89) 98 07/04/19 13:00 114 22 98/68 (78) 97 07/04/19 12:00 98.5 130 31 129/83 (98) 100 07/04/19 12:00 119 07/04/19 12:00 30 07/04/19 12:00 Mechanical Ventilator 07/04/19 11:02 88 27 30 07/04/19 11:00 88 15 113/71 (85) 99 I&O Intake and Output 07/04/19 07/05/19 19:00 07:00 Intake Total 360 ml 420 ml Output Total 2005 ml 5 ml Balance -1645 ml 415 ml Free Water 10 ml Tube Feeding 350 ml 420 ml Output Urine Total 5 ml 5 ml Hemodialysis UF 2000 ml # Bowel Movements 2 Dressing: other Wound: other Drains: other Cardiovascular: RSR Respiratory: decreased breath sounds Abdomen: soft, non-tender, present bowel sounds Extremities: no cyanosis Laboratory Tests Test 07/05/19 04:30 White Blood Count 12.6 K/UL (4.8-10.8) H Red Blood Count 3.11 M/UL (4.70-6.10) L Hemoglobin 9.0 G/DL (14.2-18.0) L Hematocrit 28.7 % (42.0-52.0) L Mean Corpuscular Volume 92 FL (80-99) Mean Corpuscular Hemoglobin 28.8 PG (27.0-31.0) Mean Corpuscular Hemoglobin Concent 31.2 G/DL (32.0-36.0) L Red Cell Distribution Width 16.7 % (11.6-14.8) H Platelet Count 512 K/UL (150-450) H Mean Platelet Volume 6.1 FL (6.5-10.1) L Neutrophils (%) (Auto) 77.5 % (45.0-75.0) H Lymphocytes (%) (Auto) 13.6 % (20.0-45.0) L Monocytes (%) (Auto) 6.0 % (1.0-10.0) Eosinophils (%) (Auto) 2.3 % (0.0-3.0) Basophils (%) (Auto) 0.6 % (0.0-2.0) Sodium Level 139 MMOL/L (136-145) Potassium Level 3.4 MMOL/L (3.5-5.1) L Chloride Level 95 MMOL/L (98-107) L Carbon Dioxide Level 28 MMOL/L (21-32) Anion Gap 16 mmol/L (5-15) H Blood Urea Nitrogen 50 mg/dL (7-18) H Creatinine 7.2 MG/DL (0.55-1.30) H Estimat Glomerular Filtration Rate 7.7 mL/min (>60) Glucose Level 163 MG/DL (74-106) H Calcium Level 9.6 MG/DL (8.5-10.1) Phosphorus Level 4.7 MG/DL (2.5-4.9) Magnesium Level 2.6 MG/DL (1.8-2.4) H Total Bilirubin 0.4 MG/DL (0.2-1.0) Aspartate Amino Transf (AST/SGOT) 27 U/L (15-37) Alanine Aminotransferase (ALT/SGPT) 16 U/L (12-78) Alkaline Phosphatase 94 U/L (46-116) C-Reactive Protein, Quantitative 12.6 mg/dL (0.00-0.90) H Pro-B-Type Natriuretic Peptide 81024 pg/mL (0-125) H Total Protein 9.7 G/DL (6.4-8.2) H Albumin 2.8 G/DL (3.4-5.0) L Globulin 6.9 g/dL Albumin/Globulin Ratio 0.4 (1.0-2.7) L Random Vancomycin Level 21.2 ug/mL Plan Problems: (1) Suspected COVID-19 virus infection (2) HTN (hypertension) (3) CASSANDRA (acute kidney injury) Assessment & Plan: Needs urgent HD needs access patient okay and consented see note will follow with recs new line placed discussed with team and nephrology HD line functional when checked has TPA now please use appropriately Cathflo used again this flow during dialysis on 430 was low. Will monitor may need line change 5/4 plan for HD as per renal may need to take fluid off with HD edema anasarca dressings saturated and changed will monitor cont with HD (4) Anemia in chronic kidney disease (CKD) (5) Anemia (6) Renal failure (7) Suspected COVID-19 virus infection Assessment & Plan: Pt deconditioned and despite all skin preventions Pt noted to have developed several pressure injuries. . Stable dry eschar noted to clefts of R and L ears. No erythema noted . DTPI noted to L trochanter. Base of injury is maroon in colour with marginal erythema along borders. Partially opened DTPI Sacrum, R and L Buttocks. Base of wound is maroon with two small open wounds L sacrum and L buttocks. Pt has an APM/MOMO Mattress overlay and is being positioned with pillows as per tolerance and within protocols. worsening despite medical efforts will cont to provide therapy Tx.Plan: Apply Cavilon Skin Barrier to both ears Daily and prn. Apply Moisture Barrier Paste to Sacrum,R and L Buttocks. Cover with Optifoam drsgs. Change every 3 days and PRN. Apply Cavilon Skin Barrier to R and L trochanter. Cover each site with Optifoam drsgs.Change every 7 days and PRN. Apply Cavilon Skin Barrier to both heels. Cover each heel with Optifoam drsg. Change every 7 days and prn. Off-load heels with pillow. Reposition at least every 2hours or as tolerated. APM/MOMO Mattress overlay. (8) COVID-19 Assessment & Plan: COVID + c diff negative febrile leukocytosis renal insufficiency see above cont resp care Rx as per ID worsening on vent support now cxr noted on pressors prognosis guarded repeat covid ++ weaning vent and pressors off slowly showing improvement Yaniv Mast July 05, 2019 10:47
--- NOTE | 2019-07-05 11:53 | Nephrology Progress Note ---
Assessment/Plan Problem List: (1) CASSANDRA (acute kidney injury) (2) Anemia in chronic kidney disease (CKD) (3) HTN (hypertension) (4) COVID-19 Assessment Acute renal failure most likely superimposed on chronic kidney disease Suspected COVID-19 virus infection Possible Pneumonia, lymphopenia, elevated AST Cardiomegaly, possible CHF COPD Hypertension Anemia, most likely related to chronic kidney disease Plan July 04: Patient was dialyzed yesterday. Due for dialysis tomorrow. Continues to be intubated. After tomorrow's dialysis will order a permacath. July 03: Dialysis is about to be started now Continues to be intubated Will plan to remove the femoral dialysis catheter and exchanged for a new temporary catheter per ID recommendation We will check surveillance blood culture tomorrow July 02: Patient was dialyzed yesterday and due for dialysis tomorrow Stable from renal standpoint W on dialysis Continue per consultants, weaning....... etc. July 01: Dialysis today Other status unchanged June 30: Due for dialysis tomorrow Remains intubated on ventilator Labs and medication reviewed Discussed with SHANIQUE Stable from renal standpoint of view June 29: Dialyzed yesterday Due for dialysis tomorrow Stable from renal standpoint to view Keeps failing weaning process June 28: Patient due for dialysis today Stable from renal standpoint to view Continue per consultants June 27: Labs reviewed Due due for dialysis June 28 Discussed with SHANIQUE Dick Continue per consultants Remains intubated on ventilator June 26 Labs reviewed Dialyzed yesterday Started on weaning today Continue to monitor renal parameters June 25: On dialysis now Potassium supplement implemented Continue per consultants Next dialysis June 27June 15: Status unchanged Dialyzed yesterday will dialyze again tomorrow Potassium supplements given Discussed with RN June 23: Due dialysis today Status: Remains intubated on ventilator June 22: Status unchanged Dialyzed yesterday and duefordialysistomorrow Serum sodium stable today June 21 Remains intubated on ventilator Due dialysis today Emphasized high sodium bath for dialysis June 20: Remains intubated on ventilator Dialyzed June 19 next dialysis June 21 Serum sodium 128, will give 250 cc 3% saline Remains full code Discussed with RN Iron panel ordered June 19: Discussed with RN. Patient due for dialysis today. Continue pulmonary support. Remains full code. June 18: Patient dialyzed yesterday June 17 Serum sodium improved but still low Arrange for dialysis tomorrow June 19 Continue per consultants June 17: Due for dialysis today Today's lab reviewed, low serum sodium noted, Emphasized on high sodium bath to dialysis nurse Discussed with SHANIQUE Yuen June 16: Dialyzed yesterday Remains intubated Labs reviewed, serum sodium 131 Plan to dialyze tomorrow June 17 with high sodium bath Discussed with SHANIQUE Yuen June 15: Due for dialysis today Labs reviewed Discussed with RN Transfuse 1 unit of packed RBCs today for low hemoglobin of 7.1 June 5: Blood pressure well maintained Receive dialysis June 13 next hemodialysis June 15June 4: Discussed with RN in ICU Patient did not receive proper dialysis yesterday due to dialysis catheter malfunction Catheter to be adjusted today and dialyzed to be resumed today Continue per consultants Positive for COVID June 11: Patient now intubated on mechanical ventilation Discussed with SHANIQUE Yuen, today June 12 Patient received dialysis yesterday June 10 next hemodialysis June 12 Blood pressure better maintained Today's labs reviewed Continue per consultants Previously patient received dialysis last evening June 05, next dialysis June 07 which was incomplete due to patient's hypotension Will start on midodrine for blood pressure support. Meanwhile continue other pressors as needed Previously Patient is doing poorly, septic, white blood cells are rising, Hypotension somewhat improved We will keep n.p.o. , NG tube for medications, and change medication to IV as needed Patient remains full code Monitor vancomycin level Previously: Patient pulled out his femoral catheter yesterday June 03 which was reinserted by Dr. Mast Patient scheduled for dialysis again June 04, which again was not done due to dialysis nurse citing catheter malfunction Meanwhile continue management per ID, pulmonary , and psych. Meanwhile white blood cell count is rising. Patient blood pressure borderline low. Will check ABG Previously May 31 : I believe patient need dialysis treatment He however needs to competency assessment if can make decisions or not I will communicate with Dr. Mulligan Previously: Per pulmonary and ID advice Adjust blood pressure medication Renal diet Anemia work-up 2D echocardiogram refused Kidney ultrasound refused Jules catheter Urine studies Per orders Subjective ROS Limited/Unobtainable: Yes Objective Objective Last 24 Hour Vital Signs Date Time Temp Pulse Resp B/P (MAP) Pulse Ox O2 Delivery O2 Flow Rate FiO2 07/05/19 11:00 108 21 103/72 (82) 100 07/05/19 10:46 111 27 100 Mechanical Ventilator 30 109 26 30 07/05/19 10:00 105 19 118/72 (87) 100 07/05/19 09:00 108 26 105/69 (81) 100 07/05/19 08:00 99.5 112 26 99/64 (76) 99 07/05/19 08:00 Mechanical Ventilator 07/05/19 08:00 30 07/05/19 08:00 114 07/05/19 07:29 99 07/05/19 07:25 115 26 99 Mechanical Ventilator 30 115 26 30 07/05/19 07:00 117 31 97/68 (78) 100 07/05/19 06:30 120 17 07/05/19 06:00 124 26 108/78 (88) 100 07/05/19 05:00 126 28 107/63 (78) 98 07/05/19 04:00 98.4 110 26 144/70 (94) 97 07/05/19 04:00 30 07/05/19 04:00 Mechanical Ventilator 07/05/19 04:00 96 07/05/19 03:00 95 26 112/65 (81) 99 07/05/19 02:38 88 26 95 Mechanical Ventilator 30 89 26 30 07/05/19 02:00 97 20 121/70 (87) 100 07/05/19 01:00 90 25 117/63 (81) 100 07/05/19 00:00 84 07/05/19 00:00 30 07/05/19 00:00 Mechanical Ventilator 07/05/19 00:00 98.4 84 26 100/64 (76) 100 07/04/19 23:00 123/69 07/04/19 23:00 84 24 123/69 (87) 100 07/04/19 22:55 83 26 100 Mechanical Ventilator 30 88 26 30 07/04/19 22:00 84 26 122/70 (87) 100 07/04/19 20:15 90 26 102/59 (73) 100 07/04/19 20:00 98.6 91 26 123/70 (87) 100 07/04/19 20:00 91 07/04/19 20:00 30 07/04/19 20:00 Mechanical Ventilator 07/04/19 19:03 94 26 100 Mechanical Ventilator 30 95 26 30 07/04/19 19:00 87 17 95/63 (74) 100 07/04/19 18:00 99 13 117/73 (88) 99 07/04/19 17:00 100 15 116/68 (84) 100 07/04/19 16:00 94 07/04/19 16:00 Mechanical Ventilator 07/04/19 16:00 99.0 96 26 110/67 (81) 97 07/04/19 16:00 30 07/04/19 15:08 97 25 100 Mechanical Ventilator 30 78 25 30 07/04/19 15:00 98 26 104/66 (79) 93 07/04/19 14:00 105 28 115/76 (89) 98 07/04/19 13:00 114 22 98/68 (78) 97 07/04/19 12:00 98.5 130 31 129/83 (98) 100 07/04/19 12:00 119 07/04/19 12:00 30 07/04/19 12:00 Mechanical Ventilator Intake and Output 07/04/19 07/05/19 19:00 07:00 Intake Total 360 ml 420 ml Output Total 2005 ml 5 ml Balance -1645 ml 415 ml Free Water 10 ml Tube Feeding 350 ml 420 ml Output Urine Total 5 ml 5 ml Hemodialysis UF 2000 ml # Bowel Movements 2 Laboratory Tests 07/05/19 04:30: White Blood Count 12.6H, Red Blood Count 3.11L, Hemoglobin 9.0L, Hematocrit 28.7L, Mean Corpuscular Volume 92, Mean Corpuscular Hemoglobin 28.8, Mean Corpuscular Hemoglobin Concent 31.2L, Red Cell Distribution Width 16.7H, Platelet Count 512H, Mean Platelet Volume 6.1L, Neutrophils (%) (Auto) 77.5H, Lymphocytes (%) (Auto) 13.6L, Monocytes (%) (Auto) 6.0, Eosinophils (%) (Auto) 2.3, Basophils (%) (Auto) 0.6, Sodium Level 139, Potassium Level 3.4L, Chloride Level 95L, Carbon Dioxide Level 28, Anion Gap 16H, Blood Urea Nitrogen 50H, Creatinine 7.2H, Estimat Glomerular Filtration Rate 7.7, Glucose Level 163H, Calcium Level 9.6, Phosphorus Level 4.7, Magnesium Level 2.6H, Total Bilirubin 0.4, Aspartate Amino Transf (AST/SGOT) 27, Alanine Aminotransferase (ALT/SGPT) 16, Alkaline Phosphatase 94, C-Reactive Protein, Quantitative 12.6H, Pro-B-Type Natriuretic Peptide 54297T, Total Protein 9.7H, Albumin 2.8L, Globulin 6.9, Albumin/Globulin Ratio 0.4L, Random Vancomycin Level 21.2 Height (Feet): 6 Height (Inches): 1.00 Weight (Pounds): 226 General Appearance: no apparent distress EENT: other - Intubated and vented Cardiovascular: tachycardia Respiratory/Chest: decreased breath sounds Abdomen: distended Objective No change Mic Cole MD July 05, 2019 11:53
--- NOTE | 2019-07-05 12:24 | Infectious Diseases Prog Note ---
Assessment/Plan Assessment/Plan IMPRESSION: 1. COVID19 pneumonia Positive: 05/27, 05/31 , 06/05, 06/09 ,06/17, 06/19, 06/23, 06/27 2. MRSA carrier. 3. Chronic kidney disease , end-stage renal disease. 4. COPD. 5. Hypertension. 6. Anemia. 7. Hypothyroidism. 8. Hyperlipidemia. 9. Major depression. 10. Leukocytosis 11. Hypotension 12. Hepatitis C 13. Hyperuricemia 14. Diarrhea 15. septic shock resolved 16. Leukocytosis 17. Bacteremia with Staph epidermidis RECOMMENDATIONS: Consider line change Continue Vancomycin Family will decide about tracheostomy Finished hydroxychloroquine. Will f/u COVID19 test Case was D/W RN Subjective ROS Limited/Unobtainable: Yes Respiratory: Reports: other - failed weaning Neurologic: Reports: confusion, other - on restraint Allergies: Coded Allergies: No Known Allergies (Unverified , 05/28/19) Objective Vital Signs Last 24 Hour Vital Signs Date Time Temp Pulse Resp B/P (MAP) Pulse Ox O2 Delivery O2 Flow Rate FiO2 07/05/19 12:00 28 104/68 Mechanical Ventilator 30 07/05/19 11:00 108 21 103/72 (82) 100 07/05/19 10:46 111 27 100 Mechanical Ventilator 30 109 26 30 07/05/19 10:00 105 19 118/72 (87) 100 07/05/19 09:00 108 26 105/69 (81) 100 07/05/19 08:00 99.5 112 26 99/64 (76) 99 07/05/19 08:00 Mechanical Ventilator 07/05/19 08:00 30 07/05/19 08:00 114 07/05/19 07:29 99 07/05/19 07:25 115 26 99 Mechanical Ventilator 30 115 26 30 07/05/19 07:00 117 31 97/68 (78) 100 07/05/19 06:30 120 17 07/05/19 06:00 124 26 108/78 (88) 100 07/05/19 05:00 126 28 107/63 (78) 98 07/05/19 04:00 98.4 110 26 144/70 (94) 97 07/05/19 04:00 30 07/05/19 04:00 Mechanical Ventilator 07/05/19 04:00 96 07/05/19 03:00 95 26 112/65 (81) 99 07/05/19 02:38 88 26 95 Mechanical Ventilator 30 89 26 30 07/05/19 02:00 97 20 121/70 (87) 100 07/05/19 01:00 90 25 117/63 (81) 100 07/05/19 00:00 84 07/05/19 00:00 30 07/05/19 00:00 Mechanical Ventilator 07/05/19 00:00 98.4 84 26 100/64 (76) 100 07/04/19 23:00 123/69 07/04/19 23:00 84 24 123/69 (87) 100 07/04/19 22:55 83 26 100 Mechanical Ventilator 30 88 26 30 07/04/19 22:00 84 26 122/70 (87) 100 07/04/19 20:15 90 26 102/59 (73) 100 07/04/19 20:00 98.6 91 26 123/70 (87) 100 07/04/19 20:00 91 07/04/19 20:00 30 07/04/19 20:00 Mechanical Ventilator 07/04/19 19:03 94 26 100 Mechanical Ventilator 30 95 26 30 07/04/19 19:00 87 17 95/63 (74) 100 07/04/19 18:00 99 13 117/73 (88) 99 07/04/19 17:00 100 15 116/68 (84) 100 07/04/19 16:00 94 07/04/19 16:00 Mechanical Ventilator 07/04/19 16:00 99.0 96 26 110/67 (81) 97 07/04/19 16:00 30 07/04/19 15:08 97 25 100 Mechanical Ventilator 30 78 25 30 07/04/19 15:00 98 26 104/66 (79) 93 07/04/19 14:00 105 28 115/76 (89) 98 07/04/19 13:00 114 22 98/68 (78) 97 Height (Feet): 6 Height (Inches): 1.00 Weight (Pounds): 226 General Appearance: no acute distress HEENT: other - orally intubated Respiratory/Chest: other - on ventilator Cardiovascular: tachycardia, other - central & HD lines Abdomen: soft, non tender, other - NG tube Extremities: no edema Neurologic/Psychiatric: disoriented Laboratory Tests Test 07/05/19 04:30 White Blood Count 12.6 K/UL (4.8-10.8) H Red Blood Count 3.11 M/UL (4.70-6.10) L Hemoglobin 9.0 G/DL (14.2-18.0) L Hematocrit 28.7 % (42.0-52.0) L Mean Corpuscular Volume 92 FL (80-99) Mean Corpuscular Hemoglobin 28.8 PG (27.0-31.0) Mean Corpuscular Hemoglobin Concent 31.2 G/DL (32.0-36.0) L Red Cell Distribution Width 16.7 % (11.6-14.8) H Platelet Count 512 K/UL (150-450) H Mean Platelet Volume 6.1 FL (6.5-10.1) L Neutrophils (%) (Auto) 77.5 % (45.0-75.0) H Lymphocytes (%) (Auto) 13.6 % (20.0-45.0) L Monocytes (%) (Auto) 6.0 % (1.0-10.0) Eosinophils (%) (Auto) 2.3 % (0.0-3.0) Basophils (%) (Auto) 0.6 % (0.0-2.0) Sodium Level 139 MMOL/L (136-145) Potassium Level 3.4 MMOL/L (3.5-5.1) L Chloride Level 95 MMOL/L (98-107) L Carbon Dioxide Level 28 MMOL/L (21-32) Anion Gap 16 mmol/L (5-15) H Blood Urea Nitrogen 50 mg/dL (7-18) H Creatinine 7.2 MG/DL (0.55-1.30) H Estimat Glomerular Filtration Rate 7.7 mL/min (>60) Glucose Level 163 MG/DL (74-106) H Calcium Level 9.6 MG/DL (8.5-10.1) Phosphorus Level 4.7 MG/DL (2.5-4.9) Magnesium Level 2.6 MG/DL (1.8-2.4) H Total Bilirubin 0.4 MG/DL (0.2-1.0) Aspartate Amino Transf (AST/SGOT) 27 U/L (15-37) Alanine Aminotransferase (ALT/SGPT) 16 U/L (12-78) Alkaline Phosphatase 94 U/L (46-116) C-Reactive Protein, Quantitative 12.6 mg/dL (0.00-0.90) H Pro-B-Type Natriuretic Peptide 16623 pg/mL (0-125) H Total Protein 9.7 G/DL (6.4-8.2) H Albumin 2.8 G/DL (3.4-5.0) L Globulin 6.9 g/dL Albumin/Globulin Ratio 0.4 (1.0-2.7) L Random Vancomycin Level 21.2 ug/mL Current Medications Medications (Trade) Dose Ordered Sig/Anthony Route PRN Reason Start Time Stop Time Status Last Admin Dose Admin Acetaminophen (Tylenol) 650 mg Q4H PRN NG Temp >100.5 06/13/19 11:00 07/13/19 10:59 07/05/19 08:15 Albuterol Sulfate (Proventil MDI) 2 puff Q4HRT INH 06/06/19 23:00 08/30/19 18:59 07/05/19 10:46 Chlorhexidine Gluconate (Michelle-Hex 2%) 1 applic DAILY@2000 TOPIC 06/07/19 20:00 09/05/19 19:59 07/04/19 19:58 Dextrose (Dextrose 50%) 25 ml Q30M PRN IV Hypoglycemia 06/20/19 19:30 09/18/19 19:29 Dextrose (Dextrose 50%) 50 ml Q30M PRN IV Hypoglycemia 06/20/19 19:30 09/18/19 19:29 Dopamine HCl/ Dextrose 250 ml @ 0 mls/hr Q24H PRN IV For hypotension 06/13/19 08:15 09/11/19 08:14 Enoxaparin Sodium (Lovenox) 30 mg DAILY SUBQ 06/07/19 09:00 08/27/19 08:59 07/05/19 08:21 Epoetin Aftab (Epoetin Aftab(ESRD on dialysis)) 10,000 unit FRI-FRI-FRI SUBQ 06/07/19 21:00 08/31/19 20:59 07/02/19 21:47 Fentanyl Citrate 250 ml @ 0 mls/hr Q24H IV 06/24/19 06:00 09/22/19 05:59 07/02/19 11:50 Hydralazine HCl (Apresoline) 10 mg Q4H PRN IV Blood pressure over 160 systol 06/07/19 10:15 09/05/19 10:14 Insulin Aspart (NovoLOG) EVERY 6 HOURS SUBQ 06/21/19 00:00 09/19/19 00:00 07/05/19 12:14 Metoclopramide HCl (Reglan) 5 mg Q8H PRN IVP Nausea & Vomiting 06/18/19 12:00 07/18/19 11:59 06/19/19 00:50 Midodrine (Pro-Amatine) 10 mg THREE TIMES A DAY NG 06/09/19 13:00 09/07/19 12:59 07/05/19 12:03 Norepinephrine Bitartrate 8 mg/ Dextrose 283 ml @ 0 mls/hr Q24H IV 06/23/19 23:00 07/23/19 22:59 06/25/19 14:38 Pantoprazole (Protonix) 40 mg DAILY IVP 06/19/19 09:00 07/19/19 08:59 07/05/19 08:16 Sevelamer Carbonate (Renvela) 1,600 mg Q8HR NG 06/25/19 22:00 09/05/19 12:59 07/05/19 05:52 Vancomycin HCl (Vanco rx to dose) 1 ea DAILY PRN MISC Per rx protocol 07/01/19 11:00 07/31/19 10:59 Ted Leyva MD July 05, 2019 12:23
--- NOTE | 2019-07-05 13:43 | Cardiac Electrophysiology PN ---
Assessment/Plan Assessment/Plan 1. Elevated troponin. Low level and flat due to renal failure. On Aspirin. EF 60 %. 2. S/P Septic shock. Off Levo 3. ESRD, on HD per Dr. Cole. 4. COVID-19 positive pneumonia. On the Vent with 30% Fio2. Fu by Dr. Mckeon. Failed weaning 5. MRSA carrier. 6. COPD. 7. Anemia. 8. Depression. DW RN Subjective Subjective Is Covid positive x 3 in isolation in ICU, On vent on 30% Fio2, PEEP 5. Off pressors. Had HD yesterday. RN at [facility] Objective Last 24 Hour Vital Signs Date Time Temp Pulse Resp B/P (MAP) Pulse Ox O2 Delivery O2 Flow Rate FiO2 07/05/19 13:30 87 22 99/61 (74) 100 07/05/19 13:00 95 12 116/74 (88) 100 07/05/19 13:00 28 99/71 Mechanical Ventilator 30 07/05/19 12:45 102 19 116/77 (90) 100 07/05/19 12:30 102 19 116/77 (90) 100 07/05/19 12:15 104 23 124/63 (83) 100 07/05/19 12:00 99.6 104 23 124/63 (83) 100 07/05/19 12:00 107 07/05/19 12:00 30 07/05/19 12:00 Mechanical Ventilator 07/05/19 12:00 28 104/68 Mechanical Ventilator 30 07/05/19 11:00 108 21 103/72 (82) 100 07/05/19 10:46 111 27 100 Mechanical Ventilator 30 109 26 30 07/05/19 10:00 105 19 118/72 (87) 100 07/05/19 09:00 108 26 105/69 (81) 100 07/05/19 08:00 99.5 112 26 99/64 (76) 99 07/05/19 08:00 Mechanical Ventilator 07/05/19 08:00 30 07/05/19 08:00 114 07/05/19 07:29 99 07/05/19 07:25 115 26 99 Mechanical Ventilator 30 115 26 30 07/05/19 07:00 117 31 97/68 (78) 100 07/05/19 06:30 120 17 07/05/19 06:00 124 26 108/78 (88) 100 07/05/19 05:00 126 28 107/63 (78) 98 07/05/19 04:00 98.4 110 26 144/70 (94) 97 07/05/19 04:00 30 07/05/19 04:00 Mechanical Ventilator 07/05/19 04:00 96 07/05/19 03:00 95 26 112/65 (81) 99 07/05/19 02:38 88 26 95 Mechanical Ventilator 30 89 26 30 07/05/19 02:00 97 20 121/70 (87) 100 07/05/19 01:00 90 25 117/63 (81) 100 07/05/19 00:00 84 07/05/19 00:00 30 07/05/19 00:00 Mechanical Ventilator 07/05/19 00:00 98.4 84 26 100/64 (76) 100 07/04/19 23:00 123/69 07/04/19 23:00 84 24 123/69 (87) 100 07/04/19 22:55 83 26 100 Mechanical Ventilator 30 88 26 30 07/04/19 22:00 84 26 122/70 (87) 100 07/04/19 20:15 90 26 102/59 (73) 100 07/04/19 20:00 98.6 91 26 123/70 (87) 100 07/04/19 20:00 91 07/04/19 20:00 30 07/04/19 20:00 Mechanical Ventilator 07/04/19 19:03 94 26 100 Mechanical Ventilator 30 95 26 30 07/04/19 19:00 87 17 95/63 (74) 100 07/04/19 18:00 99 13 117/73 (88) 99 07/04/19 17:00 100 15 116/68 (84) 100 07/04/19 16:00 94 07/04/19 16:00 Mechanical Ventilator 07/04/19 16:00 99.0 96 26 110/67 (81) 97 07/04/19 16:00 30 07/04/19 15:08 97 25 100 Mechanical Ventilator 30 78 25 30 07/04/19 15:00 98 26 104/66 (79) 93 07/04/19 14:00 105 28 115/76 (89) 98 Intake and Output 07/04/19 07/05/19 19:00 07:00 Intake Total 360 ml 420 ml Output Total 2005 ml 5 ml Balance -1645 ml 415 ml Free Water 10 ml Tube Feeding 350 ml 420 ml Output Urine Total 5 ml 5 ml Hemodialysis UF 2000 ml # Bowel Movements 2 Laboratory Tests Test 07/05/19 04:30 White Blood Count 12.6 K/UL (4.8-10.8) H Red Blood Count 3.11 M/UL (4.70-6.10) L Hemoglobin 9.0 G/DL (14.2-18.0) L Hematocrit 28.7 % (42.0-52.0) L Mean Corpuscular Volume 92 FL (80-99) Mean Corpuscular Hemoglobin 28.8 PG (27.0-31.0) Mean Corpuscular Hemoglobin Concent 31.2 G/DL (32.0-36.0) L Red Cell Distribution Width 16.7 % (11.6-14.8) H Platelet Count 512 K/UL (150-450) H Mean Platelet Volume 6.1 FL (6.5-10.1) L Neutrophils (%) (Auto) 77.5 % (45.0-75.0) H Lymphocytes (%) (Auto) 13.6 % (20.0-45.0) L Monocytes (%) (Auto) 6.0 % (1.0-10.0) Eosinophils (%) (Auto) 2.3 % (0.0-3.0) Basophils (%) (Auto) 0.6 % (0.0-2.0) Sodium Level 139 MMOL/L (136-145) Potassium Level 3.4 MMOL/L (3.5-5.1) L Chloride Level 95 MMOL/L (98-107) L Carbon Dioxide Level 28 MMOL/L (21-32) Anion Gap 16 mmol/L (5-15) H Blood Urea Nitrogen 50 mg/dL (7-18) H Creatinine 7.2 MG/DL (0.55-1.30) H Estimat Glomerular Filtration Rate 7.7 mL/min (>60) Glucose Level 163 MG/DL (74-106) H Calcium Level 9.6 MG/DL (8.5-10.1) Phosphorus Level 4.7 MG/DL (2.5-4.9) Magnesium Level 2.6 MG/DL (1.8-2.4) H Total Bilirubin 0.4 MG/DL (0.2-1.0) Aspartate Amino Transf (AST/SGOT) 27 U/L (15-37) Alanine Aminotransferase (ALT/SGPT) 16 U/L (12-78) Alkaline Phosphatase 94 U/L (46-116) C-Reactive Protein, Quantitative 12.6 mg/dL (0.00-0.90) H Pro-B-Type Natriuretic Peptide 56753 pg/mL (0-125) H Total Protein 9.7 G/DL (6.4-8.2) H Albumin 2.8 G/DL (3.4-5.0) L Globulin 6.9 g/dL Albumin/Globulin Ratio 0.4 (1.0-2.7) L Random Vancomycin Level 21.2 ug/mL Objective HEAD AND NECK: No JVD. Orally intubated LUNGS: Decreased breath sounds. CARDIOVASCULAR: Regular S1 and S2. Tachycardic. ABDOMEN: Soft. EXTREMITIES: No pitting edema. New Left FV Gio Engle MD July 05, 2019 13:43
--- NOTE | 2019-07-05 14:16 | Pulmonolgy Critical Care Note ---
Critical Care - Asmt/Plan Assessment/Plan: Pulmonary CCM Progress Note HPI: Patient is a 68 [facility] old man, [facility], admitted c/o shortness of breath, cough, noted to have Covid 19 Pneumonia, Respiratory Failure S/p intubation, CXR improving infiltrates ETT adjusted Septic Shock, pressors off Preserved EF FIO2 40%-50%, P5, adequate O2 sats, remains on ACVC, did not tolerate weaning, less sedated, minimal secretions Anemic ID following See earlier Past Medical History: COPD, CKD, Hypertension, Anemia Allergies: No Known Allergies Improving Pulmonary Status on HD Physical Exam Vital Signs Noted Sedated on ventilator WDWN, no distress HEENT: NCAT,moist mm Chest: Occasional rhonchi Heart: HS1, HS2, RRR Abdomen: SNTND, no masses Extremities: Well perfused, no edema 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, no 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, sedated Impression: COVID-19 virus infection Pneumonia Respiratory failure on ventilator Volume overload improving - on HD Hypotension on pressors Cardiomegaly Lymphopenia Elevated AST COPD Chronic Kidney Disease - HD H/o Hypertension Worsening anemia Plan: Antibiotics per ID HD Pressors PRN ACVC - wean as tolerated once pressors reduced/off 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 Monitor cultures/viral studies PPX Hemodialysis per Renal Psychiatry following [facility] - [facility] requested for when available, [facility] - not available as yet Laboratory Tests Noted: CXR: Hypoventilatory exam, interstitial changes, cardiomegaly, improving infiltrates Subjective ROS Limited/Unobtainable: No Constitutional: Denies: fever Respiratory: Reports: dry cough, shortness of breath Gastrointestinal/Abdominal: Reports: diarrhea, other - colace was stopped Psychiatric: Reports: other - refuses labs Allergies: Coded Allergies: No Known Allergies (Unverified , 05/28/19) All Systems: reviewed and negative except above Labs noted Critical Care - Objective Last 24 Hour Vital Signs Date Time Temp Pulse Resp B/P (MAP) Pulse Ox O2 Delivery O2 Flow Rate FiO2 07/05/19 14:00 82 20 103/57 (72) 100 07/05/19 13:30 87 22 99/61 (74) 100 07/05/19 13:00 95 12 116/74 (88) 100 07/05/19 13:00 28 99/71 Mechanical Ventilator 30 07/05/19 12:45 102 19 116/77 (90) 100 07/05/19 12:30 102 19 116/77 (90) 100 07/05/19 12:15 104 23 124/63 (83) 100 07/05/19 12:00 99.6 104 23 124/63 (83) 100 07/05/19 12:00 107 07/05/19 12:00 30 07/05/19 12:00 Mechanical Ventilator 07/05/19 12:00 28 104/68 Mechanical Ventilator 30 07/05/19 11:00 108 21 103/72 (82) 100 07/05/19 10:46 111 27 100 Mechanical Ventilator 30 109 26 30 07/05/19 10:00 105 19 118/72 (87) 100 07/05/19 09:00 108 26 105/69 (81) 100 07/05/19 08:00 99.5 112 26 99/64 (76) 99 07/05/19 08:00 Mechanical Ventilator 07/05/19 08:00 30 07/05/19 08:00 114 07/05/19 07:29 99 07/05/19 07:25 115 26 99 Mechanical Ventilator 30 115 26 30 07/05/19 07:00 117 31 97/68 (78) 100 07/05/19 06:30 120 17 07/05/19 06:00 124 26 108/78 (88) 100 07/05/19 05:00 126 28 107/63 (78) 98 07/05/19 04:00 98.4 110 26 144/70 (94) 97 07/05/19 04:00 30 07/05/19 04:00 Mechanical Ventilator 07/05/19 04:00 96 07/05/19 03:00 95 26 112/65 (81) 99 07/05/19 02:38 88 26 95 Mechanical Ventilator 30 89 26 30 07/05/19 02:00 97 20 121/70 (87) 100 07/05/19 01:00 90 25 117/63 (81) 100 07/05/19 00:00 84 07/05/19 00:00 30 07/05/19 00:00 Mechanical Ventilator 07/05/19 00:00 98.4 84 26 100/64 (76) 100 07/04/19 23:00 123/69 07/04/19 23:00 84 24 123/69 (87) 100 07/04/19 22:55 83 26 100 Mechanical Ventilator 30 88 26 30 07/04/19 22:00 84 26 122/70 (87) 100 07/04/19 20:15 90 26 102/59 (73) 100 07/04/19 20:00 98.6 91 26 123/70 (87) 100 07/04/19 20:00 91 07/04/19 20:00 30 07/04/19 20:00 Mechanical Ventilator 07/04/19 19:03 94 26 100 Mechanical Ventilator 30 95 26 30 07/04/19 19:00 87 17 95/63 (74) 100 07/04/19 18:00 99 13 117/73 (88) 99 07/04/19 17:00 100 15 116/68 (84) 100 07/04/19 16:00 94 07/04/19 16:00 Mechanical Ventilator 07/04/19 16:00 99.0 96 26 110/67 (81) 97 07/04/19 16:00 30 07/04/19 15:08 97 25 100 Mechanical Ventilator 30 78 25 30 07/04/19 15:00 98 26 104/66 (79) 93 Accucheck: 186 Critical Care - Subjective ROS Limited/Unobtainable: Yes Condition: stable FI02: 30 Vent Support Breath Rate: 26 Vent Support Mode: AC Vent Tidal Volume: 500 Sputum Amount: Small PEEP: 5.0 PIP: 34 Tube Feeding Amount: 35 I&O: Intake and Output 07/04/19 07/05/19 19:00 07:00 Intake Total 360 ml 420 ml Output Total 2005 ml 5 ml Balance -1645 ml 415 ml Free Water 10 ml Tube Feeding 350 ml 420 ml Output Urine Total 5 ml 5 ml Hemodialysis UF 2000 ml # Bowel Movements 2 ET-Tube: 7.5 ET Position: 24 Arturo Mckeon MD July 05, 2019 14:16
--- NOTE | 2019-07-05 16:38 | General Progress Note ---
Assessment/Plan Problem List: (1) HTN (hypertension) ICD Codes: I10 - Essential (primary) hypertension SNOMED: 92185350 (2) CASSANDRA (acute kidney injury) ICD Codes: N17.9 - Acute kidney failure, unspecified SNOMED: 1101581, 01086946 (3) Anemia in chronic kidney disease (CKD) ICD Codes: N18.9 - Chronic kidney disease, unspecified; D63.1 - Anemia in chronic kidney disease SNOMED: 833735981 (4) Renal failure ICD Codes: N19 - Unspecified kidney failure SNOMED: 94413303 (5) Respiratory failure requiring intubation ICD Codes: J96.90 - Respiratory failure, unspecified, unspecified whether with hypoxia or hypercapnia; A41.89 - Other specified sepsis SNOMED: 625269134, 888304497 (6) Pneumonia due to COVID-19 virus ICD Codes: U07.1 - COVID-19; J12.89 - Other viral pneumonia SNOMED: 999330323, 805443268 (7) Sepsis due to severe acute respiratory syndrome coronavirus 2 (SARS-CoV-2) ICD Codes: U07.1 - COVID-19; A41.89 - Other specified sepsis SNOMED: 403386275, 489728000 Status: unchanged Assessment/Plan: pna diaylsis per renal lyte check no acute changes malnutrtion anemia covid pna resp insuff Subjective ROS Limited/Unobtainable: Yes Allergies: Coded Allergies: No Known Allergies (Unverified , 05/28/19) Objective Last 24 Hour Vital Signs Date Time Temp Pulse Resp B/P (MAP) Pulse Ox O2 Delivery O2 Flow Rate FiO2 07/05/19 14:54 83 26 100 Mechanical Ventilator 30 81 26 30 07/05/19 14:00 28 103/57 Mechanical Ventilator 30 07/05/19 14:00 82 20 103/57 (72) 100 07/05/19 13:30 87 22 99/61 (74) 100 07/05/19 13:00 95 12 116/74 (88) 100 07/05/19 13:00 28 99/71 Mechanical Ventilator 30 07/05/19 12:45 102 19 116/77 (90) 100 07/05/19 12:30 102 19 116/77 (90) 100 07/05/19 12:15 104 23 124/63 (83) 100 07/05/19 12:00 99.6 104 23 124/63 (83) 100 07/05/19 12:00 107 07/05/19 12:00 30 07/05/19 12:00 Mechanical Ventilator 07/05/19 12:00 28 104/68 Mechanical Ventilator 30 07/05/19 11:00 108 21 103/72 (82) 100 07/05/19 10:46 111 27 100 Mechanical Ventilator 30 109 26 30 07/05/19 10:00 105 19 118/72 (87) 100 07/05/19 09:00 108 26 105/69 (81) 100 07/05/19 08:00 99.5 112 26 99/64 (76) 99 07/05/19 08:00 Mechanical Ventilator 07/05/19 08:00 30 07/05/19 08:00 114 07/05/19 07:29 99 07/05/19 07:25 115 26 99 Mechanical Ventilator 30 115 26 30 07/05/19 07:00 117 31 97/68 (78) 100 07/05/19 06:30 120 17 07/05/19 06:00 124 26 108/78 (88) 100 07/05/19 05:00 126 28 107/63 (78) 98 07/05/19 04:00 98.4 110 26 144/70 (94) 97 07/05/19 04:00 30 07/05/19 04:00 Mechanical Ventilator 07/05/19 04:00 96 07/05/19 03:00 95 26 112/65 (81) 99 07/05/19 02:38 88 26 95 Mechanical Ventilator 30 89 26 30 07/05/19 02:00 97 20 121/70 (87) 100 07/05/19 01:00 90 25 117/63 (81) 100 07/05/19 00:00 84 07/05/19 00:00 30 07/05/19 00:00 Mechanical Ventilator 07/05/19 00:00 98.4 84 26 100/64 (76) 100 07/04/19 23:00 123/69 07/04/19 23:00 84 24 123/69 (87) 100 07/04/19 22:55 83 26 100 Mechanical Ventilator 30 88 26 30 07/04/19 22:00 84 26 122/70 (87) 100 07/04/19 20:15 90 26 102/59 (73) 100 07/04/19 20:00 98.6 91 26 123/70 (87) 100 07/04/19 20:00 91 07/04/19 20:00 30 07/04/19 20:00 Mechanical Ventilator 07/04/19 19:03 94 26 100 Mechanical Ventilator 30 95 26 30 07/04/19 19:00 87 17 95/63 (74) 100 07/04/19 18:00 99 13 117/73 (88) 99 07/04/19 17:00 100 15 116/68 (84) 100 Intake and Output 07/04/19 07/05/19 19:00 07:00 Intake Total 360 ml 420 ml Output Total 2005 ml 5 ml Balance -1645 ml 415 ml Free Water 10 ml Tube Feeding 350 ml 420 ml Output Urine Total 5 ml 5 ml Hemodialysis UF 2000 ml # Bowel Movements 2 Laboratory Tests 07/05/19 04:30: White Blood Count 12.6H, Red Blood Count 3.11L, Hemoglobin 9.0L, Hematocrit 28.7L, Mean Corpuscular Volume 92, Mean Corpuscular Hemoglobin 28.8, Mean Corpuscular Hemoglobin Concent 31.2L, Red Cell Distribution Width 16.7H, Platelet Count 512H, Mean Platelet Volume 6.1L, Neutrophils (%) (Auto) 77.5H, Lymphocytes (%) (Auto) 13.6L, Monocytes (%) (Auto) 6.0, Eosinophils (%) (Auto) 2.3, Basophils (%) (Auto) 0.6, Sodium Level 139, Potassium Level 3.4L, Chloride Level 95L, Carbon Dioxide Level 28, Anion Gap 16H, Blood Urea Nitrogen 50H, Creatinine 7.2H, Estimat Glomerular Filtration Rate 7.7, Glucose Level 163H, Calcium Level 9.6, Phosphorus Level 4.7, Magnesium Level 2.6H, Total Bilirubin 0.4, Aspartate Amino Transf (AST/SGOT) 27, Alanine Aminotransferase (ALT/SGPT) 16, Alkaline Phosphatase 94, C-Reactive Protein, Quantitative 12.6H, Pro-B-Type Natriuretic Peptide 62503X, Total Protein 9.7H, Albumin 2.8L, Globulin 6.9, Albumin/Globulin Ratio 0.4L, Random Vancomycin Level 21.2 Height (Feet): 6 Height (Inches): 1.00 Weight (Pounds): 226 Karishma Mulligan MD July 05, 2019 16:38
[2019-07-05] MEDS: Dyna-Hex 2% Top Sol 2oz TOPIC SCH (21:50)
[2019-07-05] MEDS: Epoetin Alfa-EPBX(ESRD on dialysis)10,000 unit/ml vial SUBQ SCH (21:50)
[2019-07-05] MEDS: NOREPINEPHRINE BITARTRATE IV SCH ×3 (23:00)
[2019-07-05] MEDS: D5W IV SCH ×3 (23:00)
[2019-07-06] VITALS (24 sets, daily range): BP systolic 78–147; BP diastolic 56–84
[2019-07-06] MEDS: Albuterol 90mcg Inhaler 8gm INH SCH ×6 (03:30→23:42)
[2019-07-06 05:21] LABS: BASOPHILS % (AUTO) 0.8 % (0.0-2.0); EOSINOPHILS % (AUTO) 2.9 % (0.0-3.0); HEMOGLOBIN 9.2 G/DL (14.2-18.0); LYMPHOCYTES % (AUTO) 14.1 % (20.0-45.0); MEAN CORPUSCULAR VOLUME 92 FL (80-99); MONOCYTES % (AUTO) 5.7 % (1.0-10.0); NEUTROPHILS % (AUTO) 76.6 % (45.0-75.0); PLATELET COUNT 538 K/UL (150-450); RED BLOOD COUNT 3.15 M/UL (4.70-6.10); RED CELL DISTRIBUTION WIDTH 16.4 % (11.6-14.8); WHITE BLOOD COUNT 14.6 K/UL (4.8-10.8)
[2019-07-06 05:41] LABS: ANION GAP 15 mmol/L (5-15); BLOOD UREA NITROGEN 63 mg/dL (7-18); CALCIUM 9.4 MG/DL (8.5-10.1); CARBON DIOXIDE 29 MMOL/L (21-32); CHLORIDE 97 MMOL/L (98-107); CREATININE 8.7 MG/DL (0.55-1.30); SODIUM 140 MMOL/L (136-145)
[2019-07-06 05:52] LABS: ALANINE AMINOTRANSFERASE 15 U/L (12-78); ALBUMIN 2.8 G/DL (3.4-5.0); ALKALINE PHOSPHATASE 110 U/L (46-116); ASPARTATE AMINO TRANSFERASE 32 U/L (15-37); BILIRUBIN,DIRECT 0.2 MG/DL (0.0-0.3); BILIRUBIN,TOTAL 0.4 MG/DL (0.2-1.0); PHOSPHORUS 6.4 MG/DL (2.5-4.9)
[2019-07-06] MEDS: NovoLOG Insulin Flexpen SUBQ SCH ×3 (06:00→18:00)
[2019-07-06] MEDS: Renvela 800mg Pkt NG SCH ×3 (06:00→21:36)
[2019-07-06] MEDS: fentaNYL 2500mcg/NS 250ml IV SCH (06:00)
[2019-07-06] MEDS: Pantoprazole Inj IVP SCH (08:35)
[2019-07-06] MEDS: Midodrine 10mg tab NG SCH ×3 (08:35→17:52)
[2019-07-06] MEDS: Enoxaparin 30mg Inj SUBQ SCH (08:36)
--- NOTE | 2019-07-06 09:51 | Infectious Diseases Prog Note ---
Assessment/Plan Assessment/Plan IMPRESSION: 1. COVID19 pneumonia Positive: 05/27, 05/31 , 06/05, 06/09 ,06/17, 06/19, 06/23, 06/27 2. MRSA carrier. 3. Chronic kidney disease , end-stage renal disease. 4. COPD. 5. Hypertension. 6. Anemia. 7. Hypothyroidism. 8. Hyperlipidemia. 9. Major depression. 10. Leukocytosis 11. Hypotension 12. Hepatitis C 13. Hyperuricemia 14. Diarrhea 15. septic shock resolved 16. Leukocytosis 17. Bacteremia with Staph epidermidis RECOMMENDATIONS: Consider line change Continue Vancomycin Family will decide about tracheostomy Finished hydroxychloroquine. Will f/u COVID19 test Case was D/W RN Subjective ROS Limited/Unobtainable: Yes Constitutional: Denies: fever Neurologic: Reports: confusion, other - on restraint Allergies: Coded Allergies: No Known Allergies (Unverified , 05/28/19) Objective Vital Signs Last 24 Hour Vital Signs Date Time Temp Pulse Resp B/P (MAP) Pulse Ox O2 Delivery O2 Flow Rate FiO2 07/06/19 09:01 98 07/06/19 09:00 104 33 122/66 (84) 97 07/06/19 08:58 109 33 30 07/06/19 08:00 91 07/06/19 08:00 98.6 91 33 112/62 (79) 97 07/06/19 08:00 Mechanical Ventilator 07/06/19 08:00 30 07/06/19 07:00 89 24 135/72 (93) 100 07/06/19 06:58 82 30 98 Mechanical Ventilator 30 89 28 30 07/06/19 06:00 89 24 07/06/19 06:00 80 23 85/61 (69) 99 07/06/19 05:00 86 19 123/74 (90) 97 07/06/19 04:00 30 07/06/19 04:00 87 07/06/19 04:00 Mechanical Ventilator 07/06/19 04:00 99.4 85 26 98/58 (71) 97 07/06/19 03:30 79 26 100 Mechanical Ventilator 30 80 26 30 07/06/19 03:00 75 20 99/62 (74) 100 07/06/19 02:00 79 20 105/56 (72) 100 07/06/19 01:00 85 23 128/71 (90) 100 07/06/19 00:00 30 07/06/19 00:00 80 07/06/19 00:00 Mechanical Ventilator 07/06/19 00:00 98.9 76 26 103/62 (76) 100 07/05/19 23:29 74 26 100 Mechanical Ventilator 30 78 26 30 07/05/19 23:00 77 25 120/64 (82) 100 07/05/19 23:00 120/73 07/05/19 22:00 99.2 77 25 99/54 (69) 99 07/05/19 21:00 75 20 89/56 (67) 100 07/05/19 20:00 79 07/05/19 20:00 Mechanical Ventilator 07/05/19 20:00 78 25 88/55 (66) 100 07/05/19 20:00 25 88/55 Mechanical Ventilator 30 07/05/19 20:00 30 07/05/19 19:40 79 26 100 Mechanical Ventilator 30 77 26 30 07/05/19 19:00 25 88/55 Mechanical Ventilator 30 07/05/19 19:00 82 27 103/67 (79) 07/05/19 18:00 84 28 128/68 (88) 100 07/05/19 18:00 87 24 128/68 (88) 100 07/05/19 18:00 26 128/68 Mechanical Ventilator 30 07/05/19 17:30 79 28 97/54 (68) 100 07/05/19 17:00 26 133/77 Mechanical Ventilator 30 07/05/19 17:00 85 26 133/77 (95) 100 07/05/19 17:00 85 28 133/77 (95) 100 07/05/19 16:30 85 26 114/61 (78) 100 07/05/19 16:00 98.4 83 26 96/56 (69) 100 07/05/19 16:00 87 07/05/19 16:00 26 114/61 Mechanical Ventilator 30 07/05/19 16:00 87 26 114/61 (78) 100 07/05/19 16:00 30 07/05/19 16:00 Mechanical Ventilator 07/05/19 15:30 87 26 122/71 (88) 100 07/05/19 15:00 26 127/79 Mechanical Ventilator 30 07/05/19 15:00 86 26 127/79 (95) 100 5/25/20 15:00 83 26 103/57 (72) 100 07/05/19 14:54 83 26 100 Mechanical Ventilator 30 81 26 30 07/05/19 14:30 91 26 130/73 (92) 100 07/05/19 14:00 28 103/57 Mechanical Ventilator 30 07/05/19 14:00 82 20 103/57 (72) 100 07/05/19 13:30 87 22 99/61 (74) 100 07/05/19 13:00 95 12 116/74 (88) 100 07/05/19 13:00 28 99/71 Mechanical Ventilator 30 07/05/19 12:45 102 19 116/77 (90) 100 07/05/19 12:30 102 19 116/77 (90) 100 07/05/19 12:15 104 23 124/63 (83) 100 07/05/19 12:00 99.6 104 23 124/63 (83) 100 07/05/19 12:00 107 07/05/19 12:00 30 07/05/19 12:00 Mechanical Ventilator 07/05/19 12:00 28 104/68 Mechanical Ventilator 30 07/05/19 11:00 108 21 103/72 (82) 100 07/05/19 10:46 111 27 100 Mechanical Ventilator 30 109 26 30 07/05/19 10:00 105 19 118/72 (87) 100 Height (Feet): 6 Height (Inches): 1.00 Weight (Pounds): 225 HEENT: mucous membranes moist, other - orally intubated Respiratory/Chest: other - on ventilator Cardiovascular: tachycardia Abdomen: soft, non tender Neurologic/Psychiatric: disoriented Microbiology Date/Time Source Procedure Growth Status 07/05/19 03:25 Blood Blood Culture - Preliminary NO GROWTH AFTER 24 HOURS Resulted 07/05/19 03:16 Blood Blood Culture - Preliminary NO GROWTH AFTER 24 HOURS Resulted Laboratory Tests Test 07/06/19 04:00 White Blood Count 14.6 K/UL (4.8-10.8) H Red Blood Count 3.15 M/UL (4.70-6.10) L Hemoglobin 9.2 G/DL (14.2-18.0) L Hematocrit 29.0 % (42.0-52.0) L Mean Corpuscular Volume 92 FL (80-99) Mean Corpuscular Hemoglobin 29.2 PG (27.0-31.0) Mean Corpuscular Hemoglobin Concent 31.7 G/DL (32.0-36.0) L Red Cell Distribution Width 16.4 % (11.6-14.8) H Platelet Count 538 K/UL (150-450) H Mean Platelet Volume 6.0 FL (6.5-10.1) L Neutrophils (%) (Auto) 76.6 % (45.0-75.0) H Lymphocytes (%) (Auto) 14.1 % (20.0-45.0) L Monocytes (%) (Auto) 5.7 % (1.0-10.0) Eosinophils (%) (Auto) 2.9 % (0.0-3.0) Basophils (%) (Auto) 0.8 % (0.0-2.0) Sodium Level 140 MMOL/L (136-145) Potassium Level 4.0 MMOL/L (3.5-5.1) Chloride Level 97 MMOL/L (98-107) L Carbon Dioxide Level 29 MMOL/L (21-32) Anion Gap 15 mmol/L (5-15) Blood Urea Nitrogen 63 mg/dL (7-18) H Creatinine 8.7 MG/DL (0.55-1.30) H Estimat Glomerular Filtration Rate 6.2 mL/min (>60) Glucose Level 164 MG/DL (74-106) H Calcium Level 9.4 MG/DL (8.5-10.1) Phosphorus Level 6.4 MG/DL (2.5-4.9) H Magnesium Level 2.8 MG/DL (1.8-2.4) H Total Bilirubin 0.4 MG/DL (0.2-1.0) Direct Bilirubin 0.2 MG/DL (0.0-0.3) Aspartate Amino Transf (AST/SGOT) 32 U/L (15-37) Alanine Aminotransferase (ALT/SGPT) 15 U/L (12-78) Alkaline Phosphatase 110 U/L (46-116) C-Reactive Protein, Quantitative 8.9 mg/dL (0.00-0.90) H Total Protein 9.0 G/DL (6.4-8.2) H Albumin 2.8 G/DL (3.4-5.0) L Random Vancomycin Level 18.6 ug/mL Current Medications Medications (Trade) Dose Ordered Sig/Anthony Route PRN Reason Start Time Stop Time Status Last Admin Dose Admin Acetaminophen (Tylenol) 650 mg Q4H PRN NG Temp >100.5 06/13/19 11:00 07/13/19 10:59 07/05/19 08:15 Albuterol Sulfate (Proventil MDI) 2 puff Q4HRT INH 06/06/19 23:00 08/30/19 18:59 07/06/19 07:03 Chlorhexidine Gluconate (Michelle-Hex 2%) 1 applic DAILY@2000 TOPIC 06/07/19 20:00 09/05/19 19:59 07/05/19 21:50 Dextrose (Dextrose 50%) 25 ml Q30M PRN IV Hypoglycemia 06/20/19 19:30 09/18/19 19:29 Dextrose (Dextrose 50%) 50 ml Q30M PRN IV Hypoglycemia 06/20/19 19:30 09/18/19 19:29 Dopamine HCl/ Dextrose 250 ml @ 0 mls/hr Q24H PRN IV For hypotension 06/13/19 08:15 09/11/19 08:14 Enoxaparin Sodium (Lovenox) 30 mg DAILY SUBQ 06/07/19 09:00 08/27/19 08:59 07/06/19 08:36 Epoetin Aftab (Epoetin Aftab(ESRD on dialysis)) 10,000 unit FRI-FRI-FRI SUBQ 06/07/19 21:00 08/31/19 20:59 07/05/19 21:50 Fentanyl Citrate 250 ml @ 0 mls/hr Q24H IV 06/24/19 06:00 09/22/19 05:59 07/02/19 11:50 Hydralazine HCl (Apresoline) 10 mg Q4H PRN IV Blood pressure over 160 systol 06/07/19 10:15 09/05/19 10:14 Insulin Aspart (NovoLOG) EVERY 6 HOURS SUBQ 06/21/19 00:00 09/19/19 00:00 07/05/19 18:05 Metoclopramide HCl (Reglan) 5 mg Q8H PRN IVP Nausea & Vomiting 06/18/19 12:00 07/18/19 11:59 06/19/19 00:50 Midodrine (Pro-Amatine) 10 mg THREE TIMES A DAY NG 06/09/19 13:00 09/07/19 12:59 07/06/19 08:35 Norepinephrine Bitartrate 8 mg/ Dextrose 283 ml @ 0 mls/hr Q24H IV 06/23/19 23:00 07/23/19 22:59 06/25/19 14:38 Pantoprazole (Protonix) 40 mg DAILY IVP 06/19/19 09:00 07/19/19 08:59 07/06/19 08:35 Sevelamer Carbonate (Renvela) 1,600 mg Q8HR NG 06/25/19 22:00 09/05/19 12:59 07/06/19 06:00 Vancomycin HCl (Vanco rx to dose) 1 ea DAILY PRN MISC Per rx protocol 07/01/19 11:00 07/31/19 10:59 Vancomycin/Sodium Chloride 275 ml @ 137.5 mls/ hr ONCE IVPB 07/06/19 11:00 07/06/19 13:00 Ted Leyva MD July 06, 2019 09:51
--- NOTE | 2019-07-06 10:17 | Nephrology Progress Note ---
Assessment/Plan Problem List: (1) CASSANDRA (acute kidney injury) (2) Anemia in chronic kidney disease (CKD) (3) HTN (hypertension) (4) COVID-19 Assessment Acute renal failure most likely superimposed on chronic kidney disease Suspected COVID-19 virus infection Possible Pneumonia, lymphopenia, elevated AST Cardiomegaly, possible CHF COPD Hypertension Anemia, most likely related to chronic kidney disease Plan July 05: Patient due for dialysis today. Remains intubated. Will schedule permacath placement in a.m. blood cultures on July 04 are negative. July 04: Patient was dialyzed yesterday. Due for dialysis tomorrow. Continues to be intubated. After tomorrow's dialysis will order a permacath. July 03: Dialysis is about to be started now Continues to be intubated Will plan to remove the femoral dialysis catheter and exchanged for a new temporary catheter per ID recommendation We will check surveillance blood culture tomorrow July 02: Patient was dialyzed yesterday and due for dialysis tomorrow Stable from renal standpoint W on dialysis Continue per consultants, weaning....... etc. July 01: Dialysis today Other status unchanged June 30: Due for dialysis tomorrow Remains intubated on ventilator Labs and medication reviewed Discussed with RN Stable from renal standpoint of view June 29: Dialyzed yesterday Due for dialysis tomorrow Stable from renal standpoint to view Keeps failing weaning process June 28: Patient due for dialysis today Stable from renal standpoint to view Continue per consultants June 27: Labs reviewed Due due for dialysis June 28 Discussed with SHANIQUE Dick Continue per consultants Remains intubated on ventilator June 26 Labs reviewed Dialyzed yesterday Started on weaning today Continue to monitor renal parameters June 25: On dialysis now Potassium supplement implemented Continue per consultants Next dialysis June 27June 15: Status unchanged Dialyzed yesterday will dialyze again tomorrow Potassium supplements given Discussed with RN June 23: Due dialysis today Status: Remains intubated on ventilator June 22: Status unchanged Dialyzed yesterday and duefordialysistomorrow Serum sodium stable today June 21 Remains intubated on ventilator Due dialysis today Emphasized high sodium bath for dialysis June 20: Remains intubated on ventilator Dialyzed June 19 next dialysis June 21 Serum sodium 128, will give 250 cc 3% saline Remains full code Discussed with RN Iron panel ordered June 19: Discussed with RN. Patient due for dialysis today. Continue pulmonary support. Remains full code. June 18: Patient dialyzed yesterday June 17 Serum sodium improved but still low Arrange for dialysis tomorrow June 19 Continue per consultants June 17: Due for dialysis today Today's lab reviewed, low serum sodium noted, Emphasized on high sodium bath to dialysis nurse Discussed with SHANIQUE Yuen June 7: Dialyzed yesterday Remains intubated Labs reviewed, serum sodium 131 Plan to dialyze tomorrow June 17 with high sodium bath Discussed with SHANIQUE Alpa June 6: Due for dialysis today Labs reviewed Discussed with RN Transfuse 1 unit of packed RBCs today for low hemoglobin of 7.1 June 5: Blood pressure well maintained Receive dialysis June 13 next hemodialysis June 15June 4: Discussed with RN in ICU Patient did not receive proper dialysis yesterday due to dialysis catheter malfunction Catheter to be adjusted today and dialyzed to be resumed today Continue per consultants Positive for COVID 28 June 2: Patient now intubated on mechanical ventilation Discussed with SHANIQUE Yuen, today June 12 Patient received dialysis yesterday June 10 next hemodialysis June 12 Blood pressure better maintained Today's labs reviewed Continue per consultants Previously patient received dialysis last evening June 05, next dialysis June 07 which was incomplete due to patient's hypotension Will start on midodrine for blood pressure support. Meanwhile continue other pressors as needed Previously Patient is doing poorly, septic, white blood cells are rising, Hypotension somewhat improved We will keep n.p.o. , NG tube for medications, and change medication to IV as needed Patient remains full code Monitor vancomycin level Previously: Patient pulled out his femoral catheter yesterday June 03 which was reinserted by Dr. Mast Patient scheduled for dialysis again June 04, which again was not done due to dialysis nurse citing catheter malfunction Meanwhile continue management per ID, pulmonary , and psych. Meanwhile white blood cell count is rising. Patient blood pressure borderline low. Will check ABG Previously May 31 : I believe patient need dialysis treatment He however needs to competency assessment if can make decisions or not I will communicate with Dr. Mulligan Previously: Per pulmonary and ID advice Adjust blood pressure medication Renal diet Anemia work-up 2D echocardiogram refused Kidney ultrasound refused Jules catheter Urine studies Per orders Subjective ROS Limited/Unobtainable: Yes Objective Objective Last 24 Hour Vital Signs Date Time Temp Pulse Resp B/P (MAP) Pulse Ox O2 Delivery O2 Flow Rate FiO2 5/26/20 10:00 84 25 136/70 (92) 96 07/06/19 09:01 98 07/06/19 09:00 104 33 122/66 (84) 97 07/06/19 08:58 109 33 30 07/06/19 08:00 91 07/06/19 08:00 98.6 91 33 112/62 (79) 97 07/06/19 08:00 Mechanical Ventilator 07/06/19 08:00 30 07/06/19 07:00 89 24 135/72 (93) 100 07/06/19 06:58 82 30 98 Mechanical Ventilator 30 89 28 30 07/06/19 06:00 89 24 07/06/19 06:00 80 23 85/61 (69) 99 07/06/19 05:00 86 19 123/74 (90) 97 07/06/19 04:00 30 07/06/19 04:00 87 07/06/19 04:00 Mechanical Ventilator 07/06/19 04:00 99.4 85 26 98/58 (71) 97 07/06/19 03:30 79 26 100 Mechanical Ventilator 30 80 26 30 07/06/19 03:00 75 20 99/62 (74) 100 07/06/19 02:00 79 20 105/56 (72) 100 07/06/19 01:00 85 23 128/71 (90) 100 07/06/19 00:00 30 07/06/19 00:00 80 07/06/19 00:00 Mechanical Ventilator 07/06/19 00:00 98.9 76 26 103/62 (76) 100 07/05/19 23:29 74 26 100 Mechanical Ventilator 30 78 26 30 07/05/19 23:00 77 25 120/64 (82) 100 07/05/19 23:00 120/73 07/05/19 22:00 99.2 77 25 99/54 (69) 99 07/05/19 21:00 75 20 89/56 (67) 100 07/05/19 20:00 79 07/05/19 20:00 Mechanical Ventilator 07/05/19 20:00 78 25 88/55 (66) 100 07/05/19 20:00 25 88/55 Mechanical Ventilator 30 07/05/19 20:00 30 07/05/19 19:40 79 26 100 Mechanical Ventilator 30 77 26 30 07/05/19 19:00 25 88/55 Mechanical Ventilator 30 07/05/19 19:00 82 27 103/67 (79) 07/05/19 18:00 84 28 128/68 (88) 100 07/05/19 18:00 87 24 128/68 (88) 100 07/05/19 18:00 26 128/68 Mechanical Ventilator 30 07/05/19 17:30 79 28 97/54 (68) 100 07/05/19 17:00 26 133/77 Mechanical Ventilator 30 07/05/19 17:00 85 26 133/77 (95) 100 07/05/19 17:00 85 28 133/77 (95) 100 07/05/19 16:30 85 26 114/61 (78) 100 07/05/19 16:00 98.4 83 26 96/56 (69) 100 07/05/19 16:00 87 07/05/19 16:00 26 114/61 Mechanical Ventilator 30 07/05/19 16:00 87 26 114/61 (78) 100 07/05/19 16:00 30 07/05/19 16:00 Mechanical Ventilator 07/05/19 15:30 87 26 122/71 (88) 100 07/05/19 15:00 26 127/79 Mechanical Ventilator 30 07/05/19 15:00 86 26 127/79 (95) 100 07/05/19 15:00 83 26 103/57 (72) 100 07/05/19 14:54 83 26 100 Mechanical Ventilator 30 81 26 30 07/05/19 14:30 91 26 130/73 (92) 100 07/05/19 14:00 28 103/57 Mechanical Ventilator 30 07/05/19 14:00 82 20 103/57 (72) 100 07/05/19 13:30 87 22 99/61 (74) 100 07/05/19 13:00 95 12 116/74 (88) 100 07/05/19 13:00 28 99/71 Mechanical Ventilator 30 07/05/19 12:45 102 19 116/77 (90) 100 07/05/19 12:30 102 19 116/77 (90) 100 07/05/19 12:15 104 23 124/63 (83) 100 07/05/19 12:00 99.6 104 23 124/63 (83) 100 07/05/19 12:00 107 07/05/19 12:00 30 07/05/19 12:00 Mechanical Ventilator 07/05/19 12:00 28 104/68 Mechanical Ventilator 30 07/05/19 11:00 108 21 103/72 (82) 100 07/05/19 10:46 111 27 100 Mechanical Ventilator 30 109 26 30 Intake and Output 07/05/19 07/06/19 19:00 07:00 Intake Total 545 ml 625 ml Output Total 0 ml 0 ml Balance 545 ml 625 ml Free Water 30 ml 200 ml IV Total 35 ml 5 ml Tube Feeding 420 ml 420 ml Other 60 ml Output Urine Total 0 ml 0 ml # Bowel Movements 4 3 Laboratory Tests 07/06/19 04:00: White Blood Count 14.6H, Red Blood Count 3.15L, Hemoglobin 9.2L, Hematocrit 29.0L, Mean Corpuscular Volume 92, Mean Corpuscular Hemoglobin 29.2, Mean Corpuscular Hemoglobin Concent 31.7L, Red Cell Distribution Width 16.4H, Platelet Count 538H, Mean Platelet Volume 6.0L, Neutrophils (%) (Auto) 76.6H, Lymphocytes (%) (Auto) 14.1L, Monocytes (%) (Auto) 5.7, Eosinophils (%) (Auto) 2.9, Basophils (%) (Auto) 0.8, Sodium Level 140, Potassium Level 4.0, Chloride Level 97L, Carbon Dioxide Level 29, Anion Gap 15, Blood Urea Nitrogen 63H, Creatinine 8.7H, Estimat Glomerular Filtration Rate 6.2, Glucose Level 164H, Calcium Level 9.4, Phosphorus Level 6.4H, Magnesium Level 2.8H, Total Bilirubin 0.4, Direct Bilirubin 0.2, Aspartate Amino Transf (AST/SGOT) 32, Alanine Aminotransferase (ALT/SGPT) 15, Alkaline Phosphatase 110, C-Reactive Protein, Quantitative 8.9H, Total Protein 9.0H, Albumin 2.8L, Random Vancomycin Level 18.6 Height (Feet): 6 Height (Inches): 1.00 Weight (Pounds): 225 General Appearance: no apparent distress EENT: other - Intubated on ventilator Cardiovascular: tachycardia Respiratory/Chest: decreased breath sounds Abdomen: distended Objective No change Mic Cole MD July 06, 2019 10:16
--- NOTE | 2019-07-06 10:53 | Hematology/Onc Progress Note ---
Assessment/Plan Assessment/Plan Assessment and Recs: # Anemia of chronic disease, likely related ot underlying kidney disease has COIVD19++++++ --> hgb trend 9-->8-->7.3-->7.9-->6.8->9.5-->10->8.3-->7.7-->7.1-->8.9->8.8->7.7 -->8.1 ->7.9-->7.7 -->8.2-->8.1 -->7.9-->8.5 -->9->9.2 --> transfuse as needed, hgb goal >7 --> no evidence of hemolysis --> peripheral smear has been reviewed --> epogen started 3 x a week ==>> transfuse 06/08, 06/15, # Leukocytosis likely related to suspected COVID-19 virus infection --> completed plaquenil --> trend smear as needed --> initially 4-->11-->14.5-->21-->26-->21->24--.28-->23-->19-->16.2-->21--> 11.2 -->12.5-->12.3-->12.4 --> pulm is aware --> on abx cefepime/vanc->zosyn/vanc --> pressors as needed --> 06/27 covid 19++ # Thrombocytopenia/Lymphopenia --> likely related to covid19 --> plt 129k-->186k-->251-->285-->384 -->430-->539-->515 --> abx # Respiratory failure with covid19+ --> s/p vent --> weaning # Possible Pneumonia --> abx completed # Cardiomegaly # Transaminitis with Elevated AST # COPD # Chronic Kidney Disease --> per renal hd --> s/p right femoral cath 07/02 # Hypertension # Dvt ppx lovenox Appreciate consultation and ernesto Rn Subjective HEENT: Denies: no symptoms, eye pain, blurred vision, tearing, double vision, ear pain, ear discharge, nose pain, nose congestion, throat pain, throat swelling, mouth pain, mouth swelling, other Cardiovascular: Denies: no symptoms, chest pain, edema, irregular heart rate, lightheadedness, palpitations, syncope, other Allergies: Coded Allergies: No Known Allergies (Unverified , 05/28/19) All Systems: reviewed and negative except above Subjective 06/01 nv, extremely agitated, not allowing labs draws, no night sweats, cbc ordered 06/02 confused, restraints, on abx and plaquenil, hgb 7.9, nrb 15 L 06/03 is with nonrebreather, but not compliant, remains confused 06/05 no bleeding, labs noted, no major bleeding, otherwise comfortable 06/06 labs reviewed, no bleeding, meds noted, no night sweats, on levo and nonrebreather 06/07 labs noted, no bleeding, meds reviewed, no bleeding, wbc higher 06/08 to get 2 units prbc, no night sweats, meds reviewed 06/09 is on cefepime and vanc, labs noted, ernesto Rn, no bleeding 06/10 no major changes, labs reviewed, wbc 28k, on abx, cefepime 06/12 remains in icu, labs noted, no night sweats or bleeding 06/13 sluggish pupils, remains agitated, per psych, no bleding, on vent, wbc sitll high 06/14 still confused, remains on vent, with ng, running nepro, on pressors 06/15 icu, febrile, non verbal, hgb 7.1, blood pending, completed plaq 06/16 remains in the icu, nonverbal, plan for hd tomorrow, ernesto rn 06/17 in icu, on pressor, nonverbal, on abx, no bleeding 06/19 no bleeding, nonverbal in icu, hgb is 7.7 06/20 on zosyn, tube feeds, vent, labs noted, in icu, nv 06/21 gettng hd as per renal, in icu, nv, no bleeding, tfs 06/22 icu, cxr with slight improvement, cooling blanket, weaning today 06/23 wewaning, in icu, on vent, abx, and pressors as needed, labs noted 06/24 failed weaning, off abx, completed plaquenil, hgb 8.1 06/26 icu, weaning for this am, afebrile, hgb 8 06/27 in icu, remains comotose, weaning started on peep, no night sweats 06/28 weaning today, off abx, restraints, no distress, h/h stable 06/29 covid 19+, failed weaning, no blood transfusion needed 06/30 icu, on vent, labs reviewed, no distress 07/01 in icu, may need trach, remains on hd per renal, labs noted 07/02 s/p right fem cath, failed wean, no new orders, h/h stable 07/03 is somewhat more responsive, on abx, no bleeding, weaning and HD today 07/04 hd as per renal, weaning off vent, no bleeding today 07/05 obtunded, no bleding overnight, with hd for tomorrow noted, vanc Objective Objective Current Medications Medications (Trade) Dose Ordered Sig/Anthony Route PRN Reason Start Time Stop Time Status Last Admin Dose Admin Acetaminophen (Tylenol) 650 mg Q4H PRN NG Temp >100.5 06/13/19 11:00 07/13/19 10:59 07/05/19 08:15 Albuterol Sulfate (Proventil MDI) 2 puff Q4HRT INH 06/06/19 23:00 08/30/19 18:59 07/06/19 07:03 Chlorhexidine Gluconate (Michelle-Hex 2%) 1 applic DAILY@2000 TOPIC 06/07/19 20:00 09/05/19 19:59 07/05/19 21:50 Dextrose (Dextrose 50%) 25 ml Q30M PRN IV Hypoglycemia 06/20/19 19:30 09/18/19 19:29 Dextrose (Dextrose 50%) 50 ml Q30M PRN IV Hypoglycemia 06/20/19 19:30 09/18/19 19:29 Dopamine HCl/ Dextrose 250 ml @ 0 mls/hr Q24H PRN IV For hypotension 06/13/19 08:15 09/11/19 08:14 Enoxaparin Sodium (Lovenox) 30 mg DAILY SUBQ 06/07/19 09:00 08/27/19 08:59 07/06/19 08:36 Epoetin Aftab (Epoetin Aftab(ESRD on dialysis)) 10,000 unit FRI-FRI-FRI SUBQ 06/07/19 21:00 08/31/19 20:59 07/05/19 21:50 Fentanyl Citrate 250 ml @ 0 mls/hr Q24H IV 06/24/19 06:00 09/22/19 05:59 07/02/19 11:50 Hydralazine HCl (Apresoline) 10 mg Q4H PRN IV Blood pressure over 160 systol 06/07/19 10:15 09/05/19 10:14 Insulin Aspart (NovoLOG) EVERY 6 HOURS SUBQ 06/21/19 00:00 09/19/19 00:00 07/05/19 18:05 Metoclopramide HCl (Reglan) 5 mg Q8H PRN IVP Nausea & Vomiting 06/18/19 12:00 07/18/19 11:59 06/19/19 00:50 Midodrine (Pro-Amatine) 10 mg THREE TIMES A DAY NG 06/09/19 13:00 09/07/19 12:59 07/06/19 08:35 Norepinephrine Bitartrate 8 mg/ Dextrose 283 ml @ 0 mls/hr Q24H IV 06/23/19 23:00 07/23/19 22:59 06/25/19 14:38 Pantoprazole (Protonix) 40 mg DAILY IVP 06/19/19 09:00 07/19/19 08:59 07/06/19 08:35 Sevelamer Carbonate (Renvela) 1,600 mg Q8HR NG 06/25/19 22:00 09/05/19 12:59 07/06/19 06:00 Vancomycin HCl (Vanco rx to dose) 1 ea DAILY PRN MISC Per rx protocol 07/01/19 11:00 07/31/19 10:59 Vancomycin/Sodium Chloride 275 ml @ 137.5 mls/ hr ONCE IVPB 07/06/19 11:00 07/06/19 13:00 Last 24 Hour Vital Signs Date Time Temp Pulse Resp B/P (MAP) Pulse Ox O2 Delivery O2 Flow Rate FiO2 07/06/19 10:00 84 25 136/70 (92) 96 07/06/19 09:01 98 07/06/19 09:00 104 33 122/66 (84) 97 07/06/19 08:58 109 33 30 07/06/19 08:00 91 07/06/19 08:00 98.6 91 33 112/62 (79) 97 07/06/19 08:00 Mechanical Ventilator 07/06/19 08:00 30 07/06/19 07:00 89 24 135/72 (93) 100 07/06/19 06:58 82 30 98 Mechanical Ventilator 30 89 28 30 07/06/19 06:00 89 24 07/06/19 06:00 80 23 85/61 (69) 99 07/06/19 05:00 86 19 123/74 (90) 97 07/06/19 04:00 30 07/06/19 04:00 87 07/06/19 04:00 Mechanical Ventilator 07/06/19 04:00 99.4 85 26 98/58 (71) 97 07/06/19 03:30 79 26 100 Mechanical Ventilator 30 80 26 30 07/06/19 03:00 75 20 99/62 (74) 100 07/06/19 02:00 79 20 105/56 (72) 100 07/06/19 01:00 85 23 128/71 (90) 100 07/06/19 00:00 30 07/06/19 00:00 80 07/06/19 00:00 Mechanical Ventilator 07/06/19 00:00 98.9 76 26 103/62 (76) 100 07/05/19 23:29 74 26 100 Mechanical Ventilator 30 78 26 30 07/05/19 23:00 77 25 120/64 (82) 100 07/05/19 23:00 120/73 07/05/19 22:00 99.2 77 25 99/54 (69) 99 07/05/19 21:00 75 20 89/56 (67) 100 07/05/19 20:00 79 07/05/19 20:00 Mechanical Ventilator 07/05/19 20:00 78 25 88/55 (66) 100 07/05/19 20:00 25 88/55 Mechanical Ventilator 30 07/05/19 20:00 30 07/05/19 19:40 79 26 100 Mechanical Ventilator 30 77 26 30 07/05/19 19:00 25 88/55 Mechanical Ventilator 30 07/05/19 19:00 82 27 103/67 (79) 07/05/19 18:00 84 28 128/68 (88) 100 07/05/19 18:00 87 24 128/68 (88) 100 5/25/20 18:00 26 128/68 Mechanical Ventilator 30 07/05/19 17:30 79 28 97/54 (68) 100 07/05/19 17:00 26 133/77 Mechanical Ventilator 30 07/05/19 17:00 85 26 133/77 (95) 100 07/05/19 17:00 85 28 133/77 (95) 100 07/05/19 16:30 85 26 114/61 (78) 100 07/05/19 16:00 98.4 83 26 96/56 (69) 100 07/05/19 16:00 87 07/05/19 16:00 26 114/61 Mechanical Ventilator 30 07/05/19 16:00 87 26 114/61 (78) 100 07/05/19 16:00 30 07/05/19 16:00 Mechanical Ventilator 07/05/19 15:30 87 26 122/71 (88) 100 07/05/19 15:00 26 127/79 Mechanical Ventilator 30 07/05/19 15:00 86 26 127/79 (95) 100 07/05/19 15:00 83 26 103/57 (72) 100 07/05/19 14:54 83 26 100 Mechanical Ventilator 30 81 26 30 07/05/19 14:30 91 26 130/73 (92) 100 07/05/19 14:00 28 103/57 Mechanical Ventilator 30 07/05/19 14:00 82 20 103/57 (72) 100 07/05/19 13:30 87 22 99/61 (74) 100 07/05/19 13:00 95 12 116/74 (88) 100 07/05/19 13:00 28 99/71 Mechanical Ventilator 30 07/05/19 12:45 102 19 116/77 (90) 100 07/05/19 12:30 102 19 116/77 (90) 100 07/05/19 12:15 104 23 124/63 (83) 100 07/05/19 12:00 99.6 104 23 124/63 (83) 100 07/05/19 12:00 107 07/05/19 12:00 30 07/05/19 12:00 Mechanical Ventilator 07/05/19 12:00 28 104/68 Mechanical Ventilator 30 07/05/19 11:00 108 21 103/72 (82) 100 07/05/19 10:46 111 27 100 Mechanical Ventilator 30 109 26 30 07/05/19 10:00 105 19 118/72 (87) 100 07/05/19 09:00 108 26 105/69 (81) 100 07/05/19 08:00 99.5 112 26 99/64 (76) 99 07/05/19 08:00 Mechanical Ventilator 07/05/19 08:00 30 07/05/19 08:00 114 07/05/19 07:29 99 07/05/19 07:25 115 26 99 Mechanical Ventilator 30 115 26 30 07/05/19 07:00 117 31 97/68 (78) 100 07/05/19 06:30 120 17 07/05/19 06:00 124 26 108/78 (88) 100 07/05/19 05:00 126 28 107/63 (78) 98 07/05/19 04:00 98.4 110 26 144/70 (94) 97 07/05/19 04:00 30 07/05/19 04:00 Mechanical Ventilator 07/05/19 04:00 96 07/05/19 03:00 95 26 112/65 (81) 99 07/05/19 02:38 88 26 95 Mechanical Ventilator 30 89 26 30 07/05/19 02:00 97 20 121/70 (87) 100 07/05/19 01:00 90 25 117/63 (81) 100 07/05/19 00:00 84 07/05/19 00:00 30 07/05/19 00:00 Mechanical Ventilator 07/05/19 00:00 98.4 84 26 100/64 (76) 100 07/04/19 23:00 123/69 07/04/19 23:00 84 24 123/69 (87) 100 07/04/19 22:55 83 26 100 Mechanical Ventilator 30 88 26 30 07/04/19 22:00 84 26 122/70 (87) 100 07/04/19 20:15 90 26 102/59 (73) 100 07/04/19 20:00 98.6 91 26 123/70 (87) 100 07/04/19 20:00 91 07/04/19 20:00 30 07/04/19 20:00 Mechanical Ventilator 07/04/19 19:03 94 26 100 Mechanical Ventilator 30 95 26 30 07/04/19 19:00 87 17 95/63 (74) 100 07/04/19 18:00 99 13 117/73 (88) 99 07/04/19 17:00 100 15 116/68 (84) 100 07/04/19 16:00 94 07/04/19 16:00 Mechanical Ventilator 07/04/19 16:00 99.0 96 26 110/67 (81) 97 07/04/19 16:00 30 07/04/19 15:08 97 25 100 Mechanical Ventilator 30 78 25 30 07/04/19 15:00 98 26 104/66 (79) 93 07/04/19 14:00 105 28 115/76 (89) 98 07/04/19 13:00 114 22 98/68 (78) 97 07/04/19 12:00 98.5 130 31 129/83 (98) 100 07/04/19 12:00 119 07/04/19 12:00 30 07/04/19 12:00 Mechanical Ventilator 07/04/19 11:02 88 27 30 07/04/19 11:00 88 15 113/71 (85) 99 Intake and Output 07/05/19 07/06/19 19:00 07:00 Intake Total 545 ml 625 ml Output Total 0 ml 0 ml Balance 545 ml 625 ml Free Water 30 ml 200 ml IV Total 35 ml 5 ml Tube Feeding 420 ml 420 ml Other 60 ml Output Urine Total 0 ml 0 ml # Bowel Movements 4 3 Labs Test 07/04/19 04:00 07/05/19 04:30 07/06/19 04:00 White Blood Count 13.1 K/UL (4.8-10.8) 12.6 K/UL (4.8-10.8) 14.6 K/UL (4.8-10.8) Red Blood Count 2.95 M/UL (4.70-6.10) 3.11 M/UL (4.70-6.10) 3.15 M/UL (4.70-6.10) Hemoglobin 8.5 G/DL (14.2-18.0) 9.0 G/DL (14.2-18.0) 9.2 G/DL (14.2-18.0) Hematocrit 27.2 % (42.0-52.0) 28.7 % (42.0-52.0) 29.0 % (42.0-52.0) Mean Corpuscular Volume 92 FL (80-99) 92 FL (80-99) 92 FL (80-99) Mean Corpuscular Hemoglobin 28.7 PG (27.0-31.0) 28.8 PG (27.0-31.0) 29.2 PG (27.0-31.0) Mean Corpuscular Hemoglobin Concent 31.1 G/DL (32.0-36.0) 31.2 G/DL (32.0-36.0) 31.7 G/DL (32.0-36.0) Red Cell Distribution Width 16.7 % (11.6-14.8) 16.7 % (11.6-14.8) 16.4 % (11.6-14.8) Platelet Count 491 K/UL (150-450) 512 K/UL (150-450) 538 K/UL (150-450) Mean Platelet Volume 5.6 FL (6.5-10.1) 6.1 FL (6.5-10.1) 6.0 FL (6.5-10.1) Neutrophils (%) (Auto) 81.4 % (45.0-75.0) 77.5 % (45.0-75.0) 76.6 % (45.0-75.0) Lymphocytes (%) (Auto) 11.1 % (20.0-45.0) 13.6 % (20.0-45.0) 14.1 % (20.0-45.0) Monocytes (%) (Auto) 5.0 % (1.0-10.0) 6.0 % (1.0-10.0) 5.7 % (1.0-10.0) Eosinophils (%) (Auto) 2.0 % (0.0-3.0) 2.3 % (0.0-3.0) 2.9 % (0.0-3.0) Basophils (%) (Auto) 0.5 % (0.0-2.0) 0.6 % (0.0-2.0) 0.8 % (0.0-2.0) Sodium Level 143 MMOL/L (136-145) 139 MMOL/L (136-145) 140 MMOL/L (136-145) Potassium Level 3.3 MMOL/L (3.5-5.1) 3.4 MMOL/L (3.5-5.1) 4.0 MMOL/L (3.5-5.1) Chloride Level 98 MMOL/L (98-107) 95 MMOL/L (98-107) 97 MMOL/L (98-107) Carbon Dioxide Level 27 MMOL/L (21-32) 28 MMOL/L (21-32) 29 MMOL/L (21-32) Anion Gap 18 mmol/L (5-15) 16 mmol/L (5-15) 15 mmol/L (5-15) Blood Urea Nitrogen 67 mg/dL (7-18) 50 mg/dL (7-18) 63 mg/dL (7-18) Creatinine 9.4 MG/DL (0.55-1.30) 7.2 MG/DL (0.55-1.30) 8.7 MG/DL (0.55-1.30) Estimat Glomerular Filtration Rate 5.6 mL/min (>60) 7.7 mL/min (>60) 6.2 mL/min (>60) Glucose Level 146 MG/DL (74-106) 163 MG/DL (74-106) 164 MG/DL (74-106) Calcium Level 8.8 MG/DL (8.5-10.1) 9.6 MG/DL (8.5-10.1) 9.4 MG/DL (8.5-10.1) Phosphorus Level 4.7 MG/DL (2.5-4.9) 6.4 MG/DL (2.5-4.9) Magnesium Level 2.6 MG/DL (1.8-2.4) 2.8 MG/DL (1.8-2.4) Total Bilirubin 0.4 MG/DL (0.2-1.0) 0.4 MG/DL (0.2-1.0) Aspartate Amino Transf (AST/SGOT) 27 U/L (15-37) 32 U/L (15-37) Alanine Aminotransferase (ALT/SGPT) 16 U/L (12-78) 15 U/L (12-78) Alkaline Phosphatase 94 U/L (46-116) 110 U/L (46-116) C-Reactive Protein, Quantitative 12.6 mg/dL (0.00-0.90) 8.9 mg/dL (0.00-0.90) Pro-B-Type Natriuretic Peptide 08559 pg/mL (0-125) Total Protein 9.7 G/DL (6.4-8.2) 9.0 G/DL (6.4-8.2) Albumin 2.8 G/DL (3.4-5.0) 2.8 G/DL (3.4-5.0) Globulin 6.9 g/dL Albumin/Globulin Ratio 0.4 (1.0-2.7) Random Vancomycin Level 21.2 ug/mL 18.6 ug/mL Direct Bilirubin 0.2 MG/DL (0.0-0.3) Height (Feet): 6 Height (Inches): 1.00 Weight (Pounds): 225 Objective Sp02 EP Interpretation: reviewed General: nv, confused, sedated Heent: bilateral eye normal inspection, bilateral eye PERRL ++Ng Respiratory: normal breath sounds, no respiratory distress, intubated/vent +++ Cardiovascular: regular rate, rhythm, no edema Gastrointestinal: normal inspection, soft, non-distended Rectal: deferred Musculoskeletal: normal range of motion, non-tender, R fem cath++ Neurologic: alert, motor strength/tone normal, sensory intact, responsive, speech normal Skin: Decubitus/Ulcer - See RN skin exam. : jamaal+ Greg Cabral MD July 06, 2019 10:53
[2019-07-06] MEDS ORDERED: Vancomycin 1.5gm/NS Premix q24h IVPB SCH (11:00)
--- NOTE | 2019-07-06 12:02 | Cardiac Electrophysiology PN ---
Assessment/Plan Assessment/Plan 1. Elevated troponin. Low level and flat due to renal failure. On Aspirin. EF 60 %. 2. S/P Septic shock. Off Levo 3. ESRD, on HD per Dr. Cole. 4. COVID-19 positive pneumonia. On the Vent with 30% Fio2. Fu by Dr. Mckeon. Failed weaning 5. MRSA carrier. 6. COPD. 7. Anemia. 8. Depression. DW RN Subjective Subjective Is Covid positive x 3 in isolation in ICU, On vent on 30% Fio2, PEEP 5. Off pressors. RN at bedside. No change. Likely will need Tracheostomy Objective Last 24 Hour Vital Signs Date Time Temp Pulse Resp B/P (MAP) Pulse Ox O2 Delivery O2 Flow Rate FiO2 07/06/19 11:23 88 27 100 Mechanical Ventilator 30 94 28 30 07/06/19 11:00 83 23 130/70 (90) 95 07/06/19 10:00 84 25 136/70 (92) 96 07/06/19 09:01 98 07/06/19 09:00 104 33 122/66 (84) 97 07/06/19 08:58 109 33 30 07/06/19 08:00 91 07/06/19 08:00 98.6 91 33 112/62 (79) 97 07/06/19 08:00 Mechanical Ventilator 07/06/19 08:00 30 07/06/19 07:00 89 24 135/72 (93) 100 07/06/19 06:58 82 30 98 Mechanical Ventilator 30 89 28 30 07/06/19 06:00 89 24 07/06/19 06:00 80 23 85/61 (69) 99 07/06/19 05:00 86 19 123/74 (90) 97 07/06/19 04:00 30 07/06/19 04:00 87 07/06/19 04:00 Mechanical Ventilator 07/06/19 04:00 99.4 85 26 98/58 (71) 97 07/06/19 03:30 79 26 100 Mechanical Ventilator 30 80 26 30 07/06/19 03:00 75 20 99/62 (74) 100 07/06/19 02:00 79 20 105/56 (72) 100 07/06/19 01:00 85 23 128/71 (90) 100 07/06/19 00:00 30 07/06/19 00:00 80 5/26/20 00:00 Mechanical Ventilator 07/06/19 00:00 98.9 76 26 103/62 (76) 100 07/05/19 23:29 74 26 100 Mechanical Ventilator 30 78 26 30 07/05/19 23:00 77 25 120/64 (82) 100 07/05/19 23:00 120/73 07/05/19 22:00 99.2 77 25 99/54 (69) 99 07/05/19 21:00 75 20 89/56 (67) 100 07/05/19 20:00 79 07/05/19 20:00 Mechanical Ventilator 07/05/19 20:00 78 25 88/55 (66) 100 07/05/19 20:00 25 88/55 Mechanical Ventilator 30 07/05/19 20:00 30 07/05/19 19:40 79 26 100 Mechanical Ventilator 30 77 26 30 07/05/19 19:00 25 88/55 Mechanical Ventilator 30 07/05/19 19:00 82 27 103/67 (79) 07/05/19 18:00 84 28 128/68 (88) 100 07/05/19 18:00 87 24 128/68 (88) 100 07/05/19 18:00 26 128/68 Mechanical Ventilator 30 07/05/19 17:30 79 28 97/54 (68) 100 07/05/19 17:00 26 133/77 Mechanical Ventilator 30 07/05/19 17:00 85 26 133/77 (95) 100 07/05/19 17:00 85 28 133/77 (95) 100 07/05/19 16:30 85 26 114/61 (78) 100 07/05/19 16:00 98.4 83 26 96/56 (69) 100 07/05/19 16:00 87 07/05/19 16:00 26 114/61 Mechanical Ventilator 30 07/05/19 16:00 87 26 114/61 (78) 100 07/05/19 16:00 30 07/05/19 16:00 Mechanical Ventilator 07/05/19 15:30 87 26 122/71 (88) 100 07/05/19 15:00 26 127/79 Mechanical Ventilator 30 07/05/19 15:00 86 26 127/79 (95) 100 07/05/19 15:00 83 26 103/57 (72) 100 07/05/19 14:54 83 26 100 Mechanical Ventilator 30 81 26 30 07/05/19 14:30 91 26 130/73 (92) 100 07/05/19 14:00 28 103/57 Mechanical Ventilator 30 07/05/19 14:00 82 20 103/57 (72) 100 07/05/19 13:30 87 22 99/61 (74) 100 07/05/19 13:00 95 12 116/74 (88) 100 07/05/19 13:00 28 99/71 Mechanical Ventilator 30 07/05/19 12:45 102 19 116/77 (90) 100 07/05/19 12:30 102 19 116/77 (90) 100 07/05/19 12:15 104 23 124/63 (83) 100 Intake and Output 07/05/19 07/06/19 19:00 07:00 Intake Total 545 ml 625 ml Output Total 0 ml 0 ml Balance 545 ml 625 ml Free Water 30 ml 200 ml IV Total 35 ml 5 ml Tube Feeding 420 ml 420 ml Other 60 ml Output Urine Total 0 ml 0 ml # Bowel Movements 4 3 Laboratory Tests Test 07/06/19 04:00 White Blood Count 14.6 K/UL (4.8-10.8) H Red Blood Count 3.15 M/UL (4.70-6.10) L Hemoglobin 9.2 G/DL (14.2-18.0) L Hematocrit 29.0 % (42.0-52.0) L Mean Corpuscular Volume 92 FL (80-99) Mean Corpuscular Hemoglobin 29.2 PG (27.0-31.0) Mean Corpuscular Hemoglobin Concent 31.7 G/DL (32.0-36.0) L Red Cell Distribution Width 16.4 % (11.6-14.8) H Platelet Count 538 K/UL (150-450) H Mean Platelet Volume 6.0 FL (6.5-10.1) L Neutrophils (%) (Auto) 76.6 % (45.0-75.0) H Lymphocytes (%) (Auto) 14.1 % (20.0-45.0) L Monocytes (%) (Auto) 5.7 % (1.0-10.0) Eosinophils (%) (Auto) 2.9 % (0.0-3.0) Basophils (%) (Auto) 0.8 % (0.0-2.0) Sodium Level 140 MMOL/L (136-145) Potassium Level 4.0 MMOL/L (3.5-5.1) Chloride Level 97 MMOL/L (98-107) L Carbon Dioxide Level 29 MMOL/L (21-32) Anion Gap 15 mmol/L (5-15) Blood Urea Nitrogen 63 mg/dL (7-18) H Creatinine 8.7 MG/DL (0.55-1.30) H Estimat Glomerular Filtration Rate 6.2 mL/min (>60) Glucose Level 164 MG/DL (74-106) H Calcium Level 9.4 MG/DL (8.5-10.1) Phosphorus Level 6.4 MG/DL (2.5-4.9) H Magnesium Level 2.8 MG/DL (1.8-2.4) H Total Bilirubin 0.4 MG/DL (0.2-1.0) Direct Bilirubin 0.2 MG/DL (0.0-0.3) Aspartate Amino Transf (AST/SGOT) 32 U/L (15-37) Alanine Aminotransferase (ALT/SGPT) 15 U/L (12-78) Alkaline Phosphatase 110 U/L (46-116) C-Reactive Protein, Quantitative 8.9 mg/dL (0.00-0.90) H Total Protein 9.0 G/DL (6.4-8.2) H Albumin 2.8 G/DL (3.4-5.0) L Random Vancomycin Level 18.6 ug/mL Microbiology Date/Time Source Procedure Growth Status 07/05/19 03:25 Blood Blood Culture - Preliminary NO GROWTH AFTER 24 HOURS Resulted 07/05/19 03:16 Blood Blood Culture - Preliminary NO GROWTH AFTER 24 HOURS Resulted Objective HEAD AND NECK: No JVD. Orally intubated LUNGS: Decreased breath sounds. CARDIOVASCULAR: Regular S1 and S2. Tachycardic. ABDOMEN: Soft. EXTREMITIES: No pitting edema. New Left FV Gio Engle MD July 06, 2019 12:02
--- NOTE | 2019-07-06 12:13 | General Progress Note ---
Assessment/Plan Status: unchanged Assessment/Plan: 1. Diabetes. 2. Hypertension. 3. Coronary artery disease. 4. COPD. 5. Psychiatric disorder with schizophrenia. 6. History of hepatitis C. 7. HLP. 8. Chronic kidney disease, now with acute renal failure. 9. Anemia. 10. Hypothyroidism. 11. Spinal stenosis. 12. Constipation. 13. GERD. 14. COVID positive HD per nephrology still intubated d/w the nurse recent labs and notes reviewed stable H&H NGTF at 40 cc will fu Subjective ROS Limited/Unobtainable: No Allergies: Coded Allergies: No Known Allergies (Unverified , 05/28/19) Objective Last 24 Hour Vital Signs Date Time Temp Pulse Resp B/P (MAP) Pulse Ox O2 Delivery O2 Flow Rate FiO2 07/06/19 12:00 100 07/06/19 11:23 88 27 100 Mechanical Ventilator 30 94 28 30 07/06/19 11:00 83 23 130/70 (90) 95 07/06/19 10:00 84 25 136/70 (92) 96 07/06/19 09:01 98 07/06/19 09:00 104 33 122/66 (84) 97 07/06/19 08:58 109 33 30 07/06/19 08:00 91 07/06/19 08:00 98.6 91 33 112/62 (79) 97 07/06/19 08:00 Mechanical Ventilator 07/06/19 08:00 30 07/06/19 07:00 89 24 135/72 (93) 100 07/06/19 06:58 82 30 98 Mechanical Ventilator 30 89 28 30 07/06/19 06:00 89 24 07/06/19 06:00 80 23 85/61 (69) 99 07/06/19 05:00 86 19 123/74 (90) 97 07/06/19 04:00 30 07/06/19 04:00 87 07/06/19 04:00 Mechanical Ventilator 07/06/19 04:00 99.4 85 26 98/58 (71) 97 07/06/19 03:30 79 26 100 Mechanical Ventilator 30 80 26 30 07/06/19 03:00 75 20 99/62 (74) 100 07/06/19 02:00 79 20 105/56 (72) 100 07/06/19 01:00 85 23 128/71 (90) 100 07/06/19 00:00 30 07/06/19 00:00 80 07/06/19 00:00 Mechanical Ventilator 07/06/19 00:00 98.9 76 26 103/62 (76) 100 07/05/19 23:29 74 26 100 Mechanical Ventilator 30 78 26 30 07/05/19 23:00 77 25 120/64 (82) 100 07/05/19 23:00 120/73 07/05/19 22:00 99.2 77 25 99/54 (69) 99 07/05/19 21:00 75 20 89/56 (67) 100 07/05/19 20:00 79 07/05/19 20:00 Mechanical Ventilator 07/05/19 20:00 78 25 88/55 (66) 100 07/05/19 20:00 25 88/55 Mechanical Ventilator 30 07/05/19 20:00 30 07/05/19 19:40 79 26 100 Mechanical Ventilator 30 77 26 30 07/05/19 19:00 25 88/55 Mechanical Ventilator 30 07/05/19 19:00 82 27 103/67 (79) 07/05/19 18:00 84 28 128/68 (88) 100 07/05/19 18:00 87 24 128/68 (88) 100 07/05/19 18:00 26 128/68 Mechanical Ventilator 30 07/05/19 17:30 79 28 97/54 (68) 100 07/05/19 17:00 26 133/77 Mechanical Ventilator 30 07/05/19 17:00 85 26 133/77 (95) 100 07/05/19 17:00 85 28 133/77 (95) 100 07/05/19 16:30 85 26 114/61 (78) 100 07/05/19 16:00 98.4 83 26 96/56 (69) 100 07/05/19 16:00 87 07/05/19 16:00 26 114/61 Mechanical Ventilator 30 07/05/19 16:00 87 26 114/61 (78) 100 07/05/19 16:00 30 07/05/19 16:00 Mechanical Ventilator 07/05/19 15:30 87 26 122/71 (88) 100 07/05/19 15:00 26 127/79 Mechanical Ventilator 30 07/05/19 15:00 86 26 127/79 (95) 100 07/05/19 15:00 83 26 103/57 (72) 100 07/05/19 14:54 83 26 100 Mechanical Ventilator 30 81 26 30 07/05/19 14:30 91 26 130/73 (92) 100 07/05/19 14:00 28 103/57 Mechanical Ventilator 30 07/05/19 14:00 82 20 103/57 (72) 100 07/05/19 13:30 87 22 99/61 (74) 100 07/05/19 13:00 95 12 116/74 (88) 100 07/05/19 13:00 28 99/71 Mechanical Ventilator 30 07/05/19 12:45 102 19 116/77 (90) 100 07/05/19 12:30 102 19 116/77 (90) 100 07/05/19 12:15 104 23 124/63 (83) 100 Intake and Output 07/05/19 07/06/19 19:00 07:00 Intake Total 545 ml 625 ml Output Total 0 ml 0 ml Balance 545 ml 625 ml Free Water 30 ml 200 ml IV Total 35 ml 5 ml Tube Feeding 420 ml 420 ml Other 60 ml Output Urine Total 0 ml 0 ml # Bowel Movements 4 3 Laboratory Tests 07/06/19 04:00: White Blood Count 14.6H, Red Blood Count 3.15L, Hemoglobin 9.2L, Hematocrit 29.0L, Mean Corpuscular Volume 92, Mean Corpuscular Hemoglobin 29.2, Mean Corpuscular Hemoglobin Concent 31.7L, Red Cell Distribution Width 16.4H, Platelet Count 538H, Mean Platelet Volume 6.0L, Neutrophils (%) (Auto) 76.6H, Lymphocytes (%) (Auto) 14.1L, Monocytes (%) (Auto) 5.7, Eosinophils (%) (Auto) 2.9, Basophils (%) (Auto) 0.8, Sodium Level 140, Potassium Level 4.0, Chloride Level 97L, Carbon Dioxide Level 29, Anion Gap 15, Blood Urea Nitrogen 63H, Creatinine 8.7H, Estimat Glomerular Filtration Rate 6.2, Glucose Level 164H, Calcium Level 9.4, Phosphorus Level 6.4H, Magnesium Level 2.8H, Total Bilirubin 0.4, Direct Bilirubin 0.2, Aspartate Amino Transf (AST/SGOT) 32, Alanine Aminotransferase (ALT/SGPT) 15, Alkaline Phosphatase 110, C-Reactive Protein, Quantitative 8.9H, Total Protein 9.0H, Albumin 2.8L, Random Vancomycin Level 18.6 Height (Feet): 6 Height (Inches): 1.00 Weight (Pounds): 225 General Appearance: no apparent distress EENT: normal ENT inspection Neck: supple Cardiovascular: normal rate Respiratory/Chest: decreased breath sounds Abdomen: normal bowel sounds, non tender, soft Extremities: non-tender Marito Ramires MD July 06, 2019 12:13
--- NOTE | 2019-07-06 14:05 | Surgery Progress Note ---
Surgery Progress Note Subjective Procedure Performed Right femoral temporary hemodialysis catheter insertion Additional Comments ill appearing slowly recovering will need trach as unable to wean vent safely called and spoke with country conservatorship. will await decision Objective Last 24 Hour Vital Signs Date Time Temp Pulse Resp B/P (MAP) Pulse Ox O2 Delivery O2 Flow Rate FiO2 07/06/19 13:00 98.8 120 29 106/79 (88) 97 07/06/19 12:00 Mechanical Ventilator 07/06/19 12:00 99 22 147/84 (105) 95 07/06/19 12:00 100 07/06/19 12:00 30 07/06/19 12:00 96 20 147/84 (105) 96 07/06/19 11:23 88 27 100 Mechanical Ventilator 30 94 28 30 07/06/19 11:00 83 23 130/70 (90) 95 07/06/19 10:00 84 25 136/70 (92) 96 07/06/19 09:01 98 07/06/19 09:00 104 33 122/66 (84) 97 07/06/19 08:58 109 33 30 07/06/19 08:00 91 07/06/19 08:00 98.6 91 33 112/62 (79) 97 07/06/19 08:00 Mechanical Ventilator 07/06/19 08:00 30 07/06/19 07:00 89 24 135/72 (93) 100 07/06/19 06:58 82 30 98 Mechanical Ventilator 30 89 28 30 07/06/19 06:00 89 24 07/06/19 06:00 80 23 85/61 (69) 99 07/06/19 05:00 86 19 123/74 (90) 97 07/06/19 04:00 30 07/06/19 04:00 87 07/06/19 04:00 Mechanical Ventilator 07/06/19 04:00 99.4 85 26 98/58 (71) 97 07/06/19 03:30 79 26 100 Mechanical Ventilator 30 80 26 30 07/06/19 03:00 75 20 99/62 (74) 100 07/06/19 02:00 79 20 105/56 (72) 100 07/06/19 01:00 85 23 128/71 (90) 100 07/06/19 00:00 30 07/06/19 00:00 80 5/26/20 00:00 Mechanical Ventilator 07/06/19 00:00 98.9 76 26 103/62 (76) 100 07/05/19 23:29 74 26 100 Mechanical Ventilator 30 78 26 30 07/05/19 23:00 77 25 120/64 (82) 100 07/05/19 23:00 120/73 07/05/19 22:00 99.2 77 25 99/54 (69) 99 07/05/19 21:00 75 20 89/56 (67) 100 07/05/19 20:00 79 07/05/19 20:00 Mechanical Ventilator 07/05/19 20:00 78 25 88/55 (66) 100 07/05/19 20:00 25 88/55 Mechanical Ventilator 30 07/05/19 20:00 30 07/05/19 19:40 79 26 100 Mechanical Ventilator 30 77 26 30 07/05/19 19:00 25 88/55 Mechanical Ventilator 30 07/05/19 19:00 82 27 103/67 (79) 07/05/19 18:00 84 28 128/68 (88) 100 07/05/19 18:00 87 24 128/68 (88) 100 07/05/19 18:00 26 128/68 Mechanical Ventilator 30 07/05/19 17:30 79 28 97/54 (68) 100 07/05/19 17:00 26 133/77 Mechanical Ventilator 30 07/05/19 17:00 85 26 133/77 (95) 100 07/05/19 17:00 85 28 133/77 (95) 100 07/05/19 16:30 85 26 114/61 (78) 100 07/05/19 16:00 98.4 83 26 96/56 (69) 100 07/05/19 16:00 87 07/05/19 16:00 26 114/61 Mechanical Ventilator 30 07/05/19 16:00 87 26 114/61 (78) 100 07/05/19 16:00 30 07/05/19 16:00 Mechanical Ventilator 07/05/19 15:30 87 26 122/71 (88) 100 07/05/19 15:00 26 127/79 Mechanical Ventilator 30 07/05/19 15:00 86 26 127/79 (95) 100 07/05/19 15:00 83 26 103/57 (72) 100 07/05/19 14:54 83 26 100 Mechanical Ventilator 30 81 26 30 07/05/19 14:30 91 26 130/73 (92) 100 I&O Intake and Output 07/05/19 07/06/19 19:00 07:00 Intake Total 545 ml 625 ml Output Total 0 ml 0 ml Balance 545 ml 625 ml Free Water 30 ml 200 ml IV Total 35 ml 5 ml Tube Feeding 420 ml 420 ml Other 60 ml Output Urine Total 0 ml 0 ml # Bowel Movements 4 3 Dressing: other Wound: other Drains: other Cardiovascular: RSR Respiratory: decreased breath sounds Abdomen: soft, non-tender, present bowel sounds Extremities: no cyanosis Laboratory Tests Test 07/06/19 04:00 White Blood Count 14.6 K/UL (4.8-10.8) H Red Blood Count 3.15 M/UL (4.70-6.10) L Hemoglobin 9.2 G/DL (14.2-18.0) L Hematocrit 29.0 % (42.0-52.0) L Mean Corpuscular Volume 92 FL (80-99) Mean Corpuscular Hemoglobin 29.2 PG (27.0-31.0) Mean Corpuscular Hemoglobin Concent 31.7 G/DL (32.0-36.0) L Red Cell Distribution Width 16.4 % (11.6-14.8) H Platelet Count 538 K/UL (150-450) H Mean Platelet Volume 6.0 FL (6.5-10.1) L Neutrophils (%) (Auto) 76.6 % (45.0-75.0) H Lymphocytes (%) (Auto) 14.1 % (20.0-45.0) L Monocytes (%) (Auto) 5.7 % (1.0-10.0) Eosinophils (%) (Auto) 2.9 % (0.0-3.0) Basophils (%) (Auto) 0.8 % (0.0-2.0) Sodium Level 140 MMOL/L (136-145) Potassium Level 4.0 MMOL/L (3.5-5.1) Chloride Level 97 MMOL/L (98-107) L Carbon Dioxide Level 29 MMOL/L (21-32) Anion Gap 15 mmol/L (5-15) Blood Urea Nitrogen 63 mg/dL (7-18) H Creatinine 8.7 MG/DL (0.55-1.30) H Estimat Glomerular Filtration Rate 6.2 mL/min (>60) Glucose Level 164 MG/DL (74-106) H Calcium Level 9.4 MG/DL (8.5-10.1) Phosphorus Level 6.4 MG/DL (2.5-4.9) H Magnesium Level 2.8 MG/DL (1.8-2.4) H Total Bilirubin 0.4 MG/DL (0.2-1.0) Direct Bilirubin 0.2 MG/DL (0.0-0.3) Aspartate Amino Transf (AST/SGOT) 32 U/L (15-37) Alanine Aminotransferase (ALT/SGPT) 15 U/L (12-78) Alkaline Phosphatase 110 U/L (46-116) C-Reactive Protein, Quantitative 8.9 mg/dL (0.00-0.90) H Total Protein 9.0 G/DL (6.4-8.2) H Albumin 2.8 G/DL (3.4-5.0) L Random Vancomycin Level 18.6 ug/mL Plan Problems: (1) Suspected COVID-19 virus infection (2) HTN (hypertension) (3) CASSANDRA (acute kidney injury) Assessment & Plan: Needs urgent HD needs access patient okay and consented see note will follow with recs new line placed discussed with team and nephrology HD line functional when checked has TPA now please use appropriately Cathflo used again this flow during dialysis on 430 was low. Will monitor may need line change 5/4 plan for HD as per renal may need to take fluid off with HD edema anasarca dressings saturated and changed will monitor cont with HD (4) Anemia in chronic kidney disease (CKD) (5) Anemia (6) Renal failure (7) Suspected COVID-19 virus infection Assessment & Plan: Pt deconditioned and despite all skin preventions Pt noted to have developed several pressure injuries. . Stable dry eschar noted to clefts of R and L ears. No erythema noted . DTPI noted to L trochanter. Base of injury is maroon in colour with marginal erythema along borders. Partially opened DTPI Sacrum, R and L Buttocks. Base of wound is maroon with two small open wounds L sacrum and L buttocks. Pt has an APM/MOMO Mattress overlay and is being positioned with pillows as per tolerance and within protocols. worsening despite medical efforts will cont to provide therapy Tx.Plan: Apply Cavilon Skin Barrier to both ears Daily and prn. Apply Moisture Barrier Paste to Sacrum,R and L Buttocks. Cover with Optifoam drsgs. Change every 3 days and PRN. Apply Cavilon Skin Barrier to R and L trochanter. Cover each site with Optifoam drsgs.Change every 7 days and PRN. Apply Cavilon Skin Barrier to both heels. Cover each heel with Optifoam drsg. Change every 7 days and prn. Off-load heels with pillow. Reposition at least every 2hours or as tolerated. APM/MMOO Mattress overlay. (8) COVID-19 Assessment & Plan: COVID + c diff negative febrile leukocytosis renal insufficiency see above cont resp care Rx as per ID worsening on vent support now cxr noted on pressors prognosis guarded repeat covid ++ weaning vent and pressors off slowly showing improvement slowly recovering will need trach as unable to wean vent safely called and spoke with country conservatorship. will await decision Yaniv Mast July 06, 2019 14:05
--- NOTE | 2019-07-06 14:10 | Pulmonolgy Critical Care Note ---
Critical Care - Asmt/Plan Assessment/Plan: Pulmonary CCM Progress Note HPI: Patient is a 68 year old man, [facility] resident, admitted c/o shortness of breath, cough, noted to have Covid 19 Pneumonia, Respiratory Failure S/p intubation, CXR improving infiltrates ETT adjusted Septic Shock, pressors off Preserved EF FIO2 40%-50%, P5, adequate O2 sats, remains on ACVC, tachycardic today, less sedated, minimal secretions Anemic Retry weaning post HD if stable ID following See earlier Past Medical History: COPD, CKD, Hypertension, Anemia Allergies: No Known Allergies Improving Pulmonary Status on HD Physical Exam Vital Signs Noted Sedated on ventilator WDWN, no distress HEENT: NCAT,moist mm Chest: Occasional rhonchi Heart: HS1, HS2, RRR Abdomen: SNTND, no masses Extremities: Well perfused, no edema ANIME ARTIST: No focal signs, no seizures, sedated Impression: COVID-19 virus infection Pneumonia Respiratory failure on ventilator Volume overload improving - on HD Hypotension on pressors Cardiomegaly Lymphopenia Elevated AST COPD Chronic Kidney Disease - HD H/o Hypertension Worsening anemia Plan: Antibiotics per ID HD Pressors PRN ACVC - wean as tolerated once pressors reduced/off ABG PRN ACCESS SPECIALIST Medications 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 Monitor cultures/viral studies PPX Hemodialysis per Renal Psychiatry following [facility] - [facility] requested for when available, [facility] - not available as yet Laboratory Tests Noted: CXR: Hypoventilatory exam, interstitial changes, cardiomegaly, improving infiltrates Subjective ROS Limited/Unobtainable: No Constitutional: Denies: fever Respiratory: Reports: dry cough, shortness of breath Gastrointestinal/Abdominal: Reports: diarrhea, other - colace was stopped Psychiatric: Reports: other - refuses labs Allergies: Coded Allergies: No Known Allergies (Unverified , 05/28/19) All Systems: reviewed and negative except above Labs noted Critical Care - Objective Last 24 Hour Vital Signs Date Time Temp Pulse Resp B/P (MAP) Pulse Ox O2 Delivery O2 Flow Rate FiO2 07/06/19 14:00 133 31 94/65 (75) 99 07/06/19 13:00 98.8 120 29 106/79 (88) 97 07/06/19 12:00 Mechanical Ventilator 07/06/19 12:00 99 22 147/84 (105) 95 07/06/19 12:00 100 5/26/20 12:00 30 07/06/19 12:00 96 20 147/84 (105) 96 07/06/19 11:23 88 27 100 Mechanical Ventilator 30 94 28 30 07/06/19 11:00 83 23 130/70 (90) 95 07/06/19 10:00 84 25 136/70 (92) 96 07/06/19 09:01 98 07/06/19 09:00 104 33 122/66 (84) 97 07/06/19 08:58 109 33 30 07/06/19 08:00 91 07/06/19 08:00 98.6 91 33 112/62 (79) 97 07/06/19 08:00 Mechanical Ventilator 07/06/19 08:00 30 07/06/19 07:00 89 24 135/72 (93) 100 07/06/19 06:58 82 30 98 Mechanical Ventilator 30 89 28 30 07/06/19 06:00 89 24 07/06/19 06:00 80 23 85/61 (69) 99 07/06/19 05:00 86 19 123/74 (90) 97 07/06/19 04:00 30 07/06/19 04:00 87 07/06/19 04:00 Mechanical Ventilator 07/06/19 04:00 99.4 85 26 98/58 (71) 97 07/06/19 03:30 79 26 100 Mechanical Ventilator 30 80 26 30 07/06/19 03:00 75 20 99/62 (74) 100 07/06/19 02:00 79 20 105/56 (72) 100 07/06/19 01:00 85 23 128/71 (90) 100 07/06/19 00:00 30 07/06/19 00:00 80 07/06/19 00:00 Mechanical Ventilator 07/06/19 00:00 98.9 76 26 103/62 (76) 100 07/05/19 23:29 74 26 100 Mechanical Ventilator 30 78 26 30 07/05/19 23:00 77 25 120/64 (82) 100 07/05/19 23:00 120/73 07/05/19 22:00 99.2 77 25 99/54 (69) 99 07/05/19 21:00 75 20 89/56 (67) 100 07/05/19 20:00 79 07/05/19 20:00 Mechanical Ventilator 07/05/19 20:00 78 25 88/55 (66) 100 07/05/19 20:00 25 88/55 Mechanical Ventilator 30 07/05/19 20:00 30 07/05/19 19:40 79 26 100 Mechanical Ventilator 30 77 26 30 07/05/19 19:00 25 88/55 Mechanical Ventilator 30 07/05/19 19:00 82 27 103/67 (79) 07/05/19 18:00 84 28 128/68 (88) 100 07/05/19 18:00 87 24 128/68 (88) 100 07/05/19 18:00 26 128/68 Mechanical Ventilator 30 07/05/19 17:30 79 28 97/54 (68) 100 07/05/19 17:00 26 133/77 Mechanical Ventilator 30 07/05/19 17:00 85 26 133/77 (95) 100 07/05/19 17:00 85 28 133/77 (95) 100 07/05/19 16:30 85 26 114/61 (78) 100 07/05/19 16:00 98.4 83 26 96/56 (69) 100 07/05/19 16:00 87 07/05/19 16:00 26 114/61 Mechanical Ventilator 30 07/05/19 16:00 87 26 114/61 (78) 100 07/05/19 16:00 30 07/05/19 16:00 Mechanical Ventilator 07/05/19 15:30 87 26 122/71 (88) 100 07/05/19 15:00 26 127/79 Mechanical Ventilator 30 07/05/19 15:00 86 26 127/79 (95) 100 07/05/19 15:00 83 26 103/57 (72) 100 07/05/19 14:54 83 26 100 Mechanical Ventilator 30 81 26 30 07/05/19 14:30 91 26 130/73 (92) 100 Micro: Microbiology Date/Time Source Procedure Growth Status 07/05/19 03:25 Blood Blood Culture - Preliminary NO GROWTH AFTER 24 HOURS Resulted 07/05/19 03:16 Blood Blood Culture - Preliminary NO GROWTH AFTER 24 HOURS Resulted Accucheck: 156 Critical Care - Subjective ROS Limited/Unobtainable: No Condition: stable FI02: 30 Vent Support Breath Rate: 26 Vent Support Mode: AC Vent Tidal Volume: 500 Sputum Amount: Scant PEEP: 5.0 PIP: 24 Tube Feeding Amount: 35 I&O: Intake and Output 07/05/19 07/06/19 19:00 07:00 Intake Total 545 ml 625 ml Output Total 0 ml 0 ml Balance 545 ml 625 ml Free Water 30 ml 200 ml IV Total 35 ml 5 ml Tube Feeding 420 ml 420 ml Other 60 ml Output Urine Total 0 ml 0 ml # Bowel Movements 4 3 ET-Tube: 7.5 ET Position: 24 Arturo Mckeon MD July 06, 2019 14:10
--- NOTE | 2019-07-06 14:43 | General Progress Note ---
Progress Note Progress Note spoke with county conservator consent obtained for Trach goals of care discussed Angelita Love direct number [phone] office number for duty worker unit 11 Yaniv Mast July 06, 2019 14:42
[2019-07-06] MEDS: Dyna-Hex 2% Top Sol 2oz TOPIC SCH (20:22)
--- NOTE | 2019-07-06 21:56 | General Progress Note ---
Assessment/Plan Problem List: (1) HTN (hypertension) ICD Codes: I10 - Essential (primary) hypertension SNOMED: 12171074 (2) CASSANDRA (acute kidney injury) ICD Codes: N17.9 - Acute kidney failure, unspecified SNOMED: 1337042, 68242631 (3) Anemia in chronic kidney disease (CKD) ICD Codes: N18.9 - Chronic kidney disease, unspecified; D63.1 - Anemia in chronic kidney disease SNOMED: 392542006 (4) Renal failure ICD Codes: N19 - Unspecified kidney failure SNOMED: 42038252 (5) Respiratory failure requiring intubation ICD Codes: J96.90 - Respiratory failure, unspecified, unspecified whether with hypoxia or hypercapnia; A41.89 - Other specified sepsis SNOMED: 573983037, 052975533 (6) Pneumonia due to COVID-19 virus ICD Codes: U07.1 - COVID-19; J12.89 - Other viral pneumonia SNOMED: 081251366, 430443018 (7) Sepsis due to severe acute respiratory syndrome coronavirus 2 (SARS-CoV-2) ICD Codes: U07.1 - COVID-19; A41.89 - Other specified sepsis SNOMED: 391597709, 965359041 Status: unchanged Assessment/Plan: worsening leukocytosis pna diaylsis per renal sepsis lytes improved afebrile malnutrtion anemia resolved Subjective ROS Limited/Unobtainable: Yes Allergies: Coded Allergies: No Known Allergies (Unverified , 05/28/19) Objective Last 24 Hour Vital Signs Date Time Temp Pulse Resp B/P (MAP) Pulse Ox O2 Delivery O2 Flow Rate FiO2 07/06/19 20:00 119 07/06/19 20:00 30 07/06/19 20:00 Mechanical Ventilator 07/06/19 19:56 112 28 100 Mechanical Ventilator 30 112 29 30 07/06/19 19:00 116 24 115/69 (84) 100 07/06/19 18:00 121 24 85/62 (70) 100 07/06/19 17:00 99.0 126 25 85/68 (74) 100 07/06/19 16:00 30 07/06/19 16:00 Mechanical Ventilator 07/06/19 16:00 124 22 78/57 (64) 99 07/06/19 15:00 137 37 97/63 (74) 99 5/26/20 14:52 145 38 100 Mechanical Ventilator 30 138 34 30 07/06/19 14:00 133 31 94/65 (75) 99 07/06/19 13:00 98.8 120 29 106/79 (88) 97 07/06/19 12:00 Mechanical Ventilator 07/06/19 12:00 99 22 147/84 (105) 95 07/06/19 12:00 100 07/06/19 12:00 30 07/06/19 12:00 96 20 147/84 (105) 96 07/06/19 11:23 88 27 100 Mechanical Ventilator 30 94 28 30 07/06/19 11:00 83 23 130/70 (90) 95 07/06/19 10:00 84 25 136/70 (92) 96 07/06/19 09:01 98 07/06/19 09:00 104 33 122/66 (84) 97 07/06/19 08:58 109 33 30 07/06/19 08:00 91 07/06/19 08:00 98.6 91 33 112/62 (79) 97 07/06/19 08:00 Mechanical Ventilator 07/06/19 08:00 30 07/06/19 07:00 89 24 135/72 (93) 100 07/06/19 06:58 82 30 98 Mechanical Ventilator 30 89 28 30 07/06/19 06:00 89 24 07/06/19 06:00 80 23 85/61 (69) 99 07/06/19 05:00 86 19 123/74 (90) 97 07/06/19 04:00 30 07/06/19 04:00 87 07/06/19 04:00 Mechanical Ventilator 07/06/19 04:00 99.4 85 26 98/58 (71) 97 07/06/19 03:30 79 26 100 Mechanical Ventilator 30 80 26 30 07/06/19 03:00 75 20 99/62 (74) 100 07/06/19 02:00 79 20 105/56 (72) 100 07/06/19 01:00 85 23 128/71 (90) 100 07/06/19 00:00 30 07/06/19 00:00 80 07/06/19 00:00 Mechanical Ventilator 07/06/19 00:00 98.9 76 26 103/62 (76) 100 07/05/19 23:29 74 26 100 Mechanical Ventilator 30 78 26 30 07/05/19 23:00 77 25 120/64 (82) 100 07/05/19 23:00 120/73 07/05/19 22:00 99.2 77 25 99/54 (69) 99 Intake and Output 07/05/19 07/06/19 19:00 07:00 Intake Total 545 ml 625 ml Output Total 0 ml 0 ml Balance 545 ml 625 ml Free Water 30 ml 200 ml IV Total 35 ml 5 ml Tube Feeding 420 ml 420 ml Other 60 ml Output Urine Total 0 ml 0 ml # Bowel Movements 4 3 Laboratory Tests 07/06/19 04:00: White Blood Count 14.6H, Red Blood Count 3.15L, Hemoglobin 9.2L, Hematocrit 29.0L, Mean Corpuscular Volume 92, Mean Corpuscular Hemoglobin 29.2, Mean Corpuscular Hemoglobin Concent 31.7L, Red Cell Distribution Width 16.4H, Platelet Count 538H, Mean Platelet Volume 6.0L, Neutrophils (%) (Auto) 76.6H, Lymphocytes (%) (Auto) 14.1L, Monocytes (%) (Auto) 5.7, Eosinophils (%) (Auto) 2.9, Basophils (%) (Auto) 0.8, Sodium Level 140, Potassium Level 4.0, Chloride Level 97L, Carbon Dioxide Level 29, Anion Gap 15, Blood Urea Nitrogen 63H, Creatinine 8.7H, Estimat Glomerular Filtration Rate 6.2, Glucose Level 164H, Calcium Level 9.4, Phosphorus Level 6.4H, Magnesium Level 2.8H, Total Bilirubin 0.4, Direct Bilirubin 0.2, Aspartate Amino Transf (AST/SGOT) 32, Alanine Aminotransferase (ALT/SGPT) 15, Alkaline Phosphatase 110, C-Reactive Protein, Quantitative 8.9H, Total Protein 9.0H, Albumin 2.8L, Random Vancomycin Level 18.6 Height (Feet): 6 Height (Inches): 1.00 Weight (Pounds): 225 Karishma Mulligan MD July 06, 2019 21:56
[2019-07-06] MEDS: D5W IV SCH ×3 (23:00)
[2019-07-06] MEDS: NOREPINEPHRINE BITARTRATE IV SCH ×3 (23:00)
[2019-07-07] VITALS (56 sets, daily range): BP systolic 77–150; BP diastolic 56–86
[2019-07-07] MEDS: Albuterol 90mcg Inhaler 8gm INH SCH ×6 (03:39→21:46)
[2019-07-07] MEDS: fentaNYL 2500mcg/NS 250ml IV SCH ×2 (05:29→14:09)
[2019-07-07] MEDS: Renvela 800mg Pkt NG SCH ×3 (05:39→21:31)
[2019-07-07] MEDS: NovoLOG Insulin Flexpen SUBQ SCH ×4 (05:42→17:53)
[2019-07-07 05:56] LABS: INR 1.1 (0.9-1.1)
[2019-07-07 06:07] LABS: ALANINE AMINOTRANSFERASE 15 U/L (12-78); ALBUMIN 3.1 G/DL (3.4-5.0); ALBUMIN/GLOBULIN RATIO 0.4 (1.0-2.7); ALKALINE PHOSPHATASE 107 U/L (46-116); ANION GAP 14 mmol/L (5-15); ASPARTATE AMINO TRANSFERASE 34 U/L (15-37); BILIRUBIN,TOTAL 0.4 MG/DL (0.2-1.0); BLOOD UREA NITROGEN 56 mg/dL (7-18); CALCIUM 9.7 MG/DL (8.5-10.1); CARBON DIOXIDE 28 MMOL/L (21-32); CHLORIDE 99 MMOL/L (98-107); CREATININE 8.1 MG/DL (0.55-1.30); PHOSPHORUS 5.2 MG/DL (2.5-4.9); POTASSIUM 4.2 MMOL/L (3.5-5.1); SODIUM 141 MMOL/L (136-145)
[2019-07-07 06:13] LABS: BASOPHILS % (AUTO) 0.9 % (0.0-2.0); HEMATOCRIT 30.7 % (42.0-52.0); HEMOGLOBIN 9.7 G/DL (14.2-18.0); LYMPHOCYTES % (AUTO) 13.3 % (20.0-45.0); MEAN CORPUSCULAR VOLUME 92 FL (80-99); MONOCYTES % (AUTO) 6.8 % (1.0-10.0); PLATELET COUNT 462 K/UL (150-450); RED BLOOD COUNT 3.34 M/UL (4.70-6.10); RED CELL DISTRIBUTION WIDTH 16.6 % (11.6-14.8); WHITE BLOOD COUNT 15.2 K/UL (4.8-10.8)
[2019-07-07] MEDS: Midodrine 10mg tab NG SCH ×3 (08:14→17:52)
[2019-07-07] MEDS: Pantoprazole Inj IVP SCH (08:14)
[2019-07-07] MEDS: Enoxaparin 30mg Inj SUBQ SCH (08:15)
--- NOTE | 2019-07-07 10:49 | Nephrology Progress Note ---
Assessment/Plan Problem List: (1) CASSANDRA (acute kidney injury) (2) Anemia in chronic kidney disease (CKD) (3) HTN (hypertension) (4) COVID-19 Assessment Acute renal failure most likely superimposed on chronic kidney disease Suspected COVID-19 virus infection Possible Pneumonia, lymphopenia, elevated AST Cardiomegaly, possible CHF COPD Hypertension Anemia, most likely related to chronic kidney disease Plan July 06: Patient is intubated on ventilator however the plan is to extubate today. Patient was dialysis yesterday July 05. The dialysis time was cut short due to patient's respiratory distress. Only 1 L was removed during dialysis yesterday. Today's lab reviewed. Continue per consultants. Will arrange for dialysis as needed. July 05: Patient due for dialysis today. Remains intubated. Will schedule permacath placement in a.m. blood cultures on July 04 are negative. July 04: Patient was dialyzed yesterday. Due for dialysis tomorrow. Continues to be intubated. After tomorrow's dialysis will order a permacath. July 03: Dialysis is about to be started now Continues to be intubated Will plan to remove the femoral dialysis catheter and exchanged for a new temporary catheter per ID recommendation We will check surveillance blood culture tomorrow July 02: Patient was dialyzed yesterday and due for dialysis tomorrow Stable from renal standpoint W on dialysis Continue per consultants, weaning....... etc. July 01: Dialysis today Other status unchanged June 30: Due for dialysis tomorrow Remains intubated on ventilator Labs and medication reviewed Discussed with RN Stable from renal standpoint of view June 29: Dialyzed yesterday Due for dialysis tomorrow Stable from renal standpoint to view Keeps failing weaning process June 28: Patient due for dialysis today Stable from renal standpoint to view Continue per consultants June 27: Labs reviewed Due due for dialysis June 28 Discussed with SHANIQUE Dick Continue per consultants Remains intubated on ventilator June 26 Labs reviewed Dialyzed yesterday Started on weaning today Continue to monitor renal parameters June 25: On dialysis now Potassium supplement implemented Continue per consultants Next dialysis June 27June 15: Status unchanged Dialyzed yesterday will dialyze again tomorrow Potassium supplements given Discussed with RN June 14: Due dialysis today Status: Remains intubated on ventilator June 22: Status unchanged Dialyzed yesterday and duefordialysistomorrow Serum sodium stable today June 21 Remains intubated on ventilator Due dialysis today Emphasized high sodium bath for dialysis June 20: Remains intubated on ventilator Dialyzed June 19 next dialysis June 21 Serum sodium 128, will give 250 cc 3% saline Remains full code Discussed with RN Iron panel ordered June 19: Discussed with RN. Patient due for dialysis today. Continue pulmonary support. Remains full code. June 18: Patient dialyzed yesterday June 17 Serum sodium improved but still low Arrange for dialysis tomorrow June 19 Continue per consultants June 17: Due for dialysis today Today's lab reviewed, low serum sodium noted, Emphasized on high sodium bath to dialysis nurse Discussed with SHANIQUE Yuen June 16: Dialyzed yesterday Remains intubated Labs reviewed, serum sodium 131 Plan to dialyze tomorrow June 17 with high sodium bath Discussed with SHANIQUE Yuen June 15: Due for dialysis today Labs reviewed Discussed with RN Transfuse 1 unit of packed RBCs today for low hemoglobin of 7.1 June 5: Blood pressure well maintained Receive dialysis June 13 next hemodialysis June 15June 4: Discussed with RN in ICU Patient did not receive proper dialysis yesterday due to dialysis catheter malfunction Catheter to be adjusted today and dialyzed to be resumed today Continue per consultants Positive for COVID 28 June 2: Patient now intubated on mechanical ventilation Discussed with SHANIQUE Yuen, today June 12 Patient received dialysis yesterday June 10 next hemodialysis June 12 Blood pressure better maintained Today's labs reviewed Continue per consultants Previously patient received dialysis last evening June 05, next dialysis June 07 which was incomplete due to patient's hypotension Will start on midodrine for blood pressure support. Meanwhile continue other pressors as needed Previously Patient is doing poorly, septic, white blood cells are rising, Hypotension somewhat improved We will keep n.p.o. , NG tube for medications, and change medication to IV as needed Patient remains full code Monitor vancomycin level Previously: Patient pulled out his femoral catheter yesterday June 03 which was reinserted by Dr. Mast Patient scheduled for dialysis again June 04, which again was not done due to dialysis nurse citing catheter malfunction Meanwhile continue management per ID, pulmonary , and psych. Meanwhile white blood cell count is rising. Patient blood pressure borderline low. Will check ABG Previously May 31 : I believe patient need dialysis treatment He however needs to competency assessment if can make decisions or not I will communicate with Dr. Mulligan Previously: Per pulmonary and ID advice Adjust blood pressure medication Renal diet Anemia work-up 2D echocardiogram refused Kidney ultrasound refused Jules catheter Urine studies Per orders Subjective ROS Limited/Unobtainable: Yes Objective Objective Last 24 Hour Vital Signs Date Time Temp Pulse Resp B/P (MAP) Pulse Ox O2 Delivery O2 Flow Rate FiO2 07/07/19 10:25 100 07/07/19 10:00 110 31 118/71 (87) 100 07/07/19 09:00 116 33 132/73 (92) 100 07/07/19 08:40 30 07/07/19 08:40 111 30 30 07/07/19 08:30 114 23 115/72 (86) 100 07/07/19 08:00 Mechanical Ventilator 07/07/19 08:00 114 07/07/19 08:00 98.7 111 20 96/70 (79) 100 07/07/19 08:00 30 07/07/19 07:10 109 26 100 Mechanical Ventilator 30 109 26 30 07/07/19 07:00 110 33 89/63 (72) 100 07/07/19 06:30 110 24 07/07/19 06:00 34 135/73 Mechanical Ventilator 30 07/07/19 06:00 99.0 113 0 95/63 (74) 100 07/07/19 05:29 24 127/74 Mechanical Ventilator 30 07/07/19 05:00 31 113/75 Mechanical Ventilator 30 07/07/19 05:00 126 33 113/75 (88) 100 07/07/19 04:00 Mechanical Ventilator 07/07/19 04:00 30 125/86 Mechanical Ventilator 30 07/07/19 04:00 125 25 125/86 (99) 98 07/07/19 04:00 105 07/07/19 04:00 30 07/07/19 03:39 107 26 100 Mechanical Ventilator 30 111 26 30 07/07/19 03:00 25 115/77 Mechanical Ventilator 30 07/07/19 03:00 112 26 115/77 (90) 100 07/07/19 02:00 98.9 106 1 91/61 (71) 100 07/07/19 02:00 25 126/80 Mechanical Ventilator 30 07/07/19 01:00 20 116/67 Mechanical Ventilator 30 07/07/19 01:00 106 22 91/59 (70) 100 07/07/19 00:00 Mechanical Ventilator 07/07/19 00:00 30 07/07/19 00:00 24 101/65 Mechanical Ventilator 30 07/07/19 00:00 111 07/07/19 00:00 108 25 121/73 (89) 100 07/06/19 23:43 111 28 100 Mechanical Ventilator 30 113 27 30 07/06/19 23:00 111 27 113/72 (86) 100 07/06/19 23:00 26 123/71 Mechanical Ventilator 30 07/06/19 23:00 96/65 07/06/19 22:00 26 149/73 Mechanical Ventilator 30 07/06/19 22:00 99.2 111 27 112/73 (86) 100 07/06/19 21:00 114 27 119/66 (83) 100 07/06/19 20:00 119 07/06/19 20:00 30 07/06/19 20:00 109 27 109/67 (81) 100 07/06/19 20:00 Mechanical Ventilator 07/06/19 19:56 112 28 100 Mechanical Ventilator 30 112 29 30 07/06/19 19:00 116 24 115/69 (84) 100 07/06/19 18:00 121 24 85/62 (70) 100 07/06/19 17:00 99.0 126 25 85/68 (74) 100 07/06/19 16:00 30 07/06/19 16:00 Mechanical Ventilator 07/06/19 16:00 124 22 78/57 (64) 99 07/06/19 15:00 137 37 97/63 (74) 99 07/06/19 14:52 145 38 100 Mechanical Ventilator 30 138 34 30 07/06/19 14:00 133 31 94/65 (75) 99 07/06/19 13:00 98.8 120 29 106/79 (88) 97 07/06/19 12:00 Mechanical Ventilator 07/06/19 12:00 99 22 147/84 (105) 95 07/06/19 12:00 100 07/06/19 12:00 30 07/06/19 12:00 96 20 147/84 (105) 96 07/06/19 11:23 88 27 100 Mechanical Ventilator 30 94 28 30 07/06/19 11:00 83 23 130/70 (90) 95 Intake and Output 07/06/19 07/07/19 19:00 07:00 Intake Total 570 ml 482 ml Output Total 1015 ml 0 ml Balance -445 ml 482 ml Free Water 150 ml 100 ml IV Total 32 ml Tube Feeding 420 ml 350 ml Output Urine Total 15 ml 0 ml Hemodialysis UF 1000 ml # Bowel Movements 1 1 Laboratory Tests 07/07/19 03:30: White Blood Count 15.2H, Red Blood Count 3.34L, Hemoglobin 9.7L, Hematocrit 30.7L, Mean Corpuscular Volume 92, Mean Corpuscular Hemoglobin 28.9, Mean Corpuscular Hemoglobin Concent 31.5L, Red Cell Distribution Width 16.6H, Platelet Count 462H, Mean Platelet Volume 6.3L, Neutrophils (%) (Auto) 77.0H, Lymphocytes (%) (Auto) 13.3L, Monocytes (%) (Auto) 6.8, Eosinophils (%) (Auto) 2.0, Basophils (%) (Auto) 0.9, Prothrombin Time 12.1H, Prothromb Time International Ratio 1.1, Activated Partial Thromboplast Time 25, Sodium Level 141, Potassium Level 4.2, Chloride Level 99, Carbon Dioxide Level 28, Anion Gap 14, Blood Urea Nitrogen 56H, Creatinine 8.1H, Estimat Glomerular Filtration Rate 6.7, Glucose Level 215H, Calcium Level 9.7, Phosphorus Level 5.2H, Magnesium Level 2.8H, Total Bilirubin 0.4, Aspartate Amino Transf (AST/SGOT) 34 , Alanine Aminotransferase (ALT/SGPT) 15, Alkaline Phosphatase 107, Total Protein 10.1H, Albumin 3.1L, Globulin 7.0, Albumin/Globulin Ratio 0.4L 07/07/19 09:59: Arterial Blood pH 7.411, Arterial Blood Partial Pressure CO2 42.3, Arterial Blood Partial Pressure O2 107.3H, Arterial Blood HCO3 26.3H, Arterial Blood Oxygen Saturation 97.9, Arterial Blood Base Excess 1.5, Kosta Test Positive Height (Feet): 6 Height (Inches): 1.00 Weight (Pounds): 225 General Appearance: no apparent distress EENT: other - Patient currently remains intubated on ventilator Cardiovascular: tachycardia Respiratory/Chest: decreased breath sounds Abdomen: distended Objective No change Mic Cole MD July 07, 2019 10:49
--- NOTE | 2019-07-07 11:24 | General Progress Note ---
Assessment/Plan Status: unchanged Assessment/Plan: 1. Diabetes. 2. Hypertension. 3. Coronary artery disease. 4. COPD. 5. Psychiatric disorder with schizophrenia. 6. History of hepatitis C. 7. HLP. 8. Chronic kidney disease, now with acute renal failure. 9. Anemia. 10. Hypothyroidism. 11. Spinal stenosis. 12. Constipation. 13. GERD. 14. COVID positive HD per nephrology still intubated>> pending extubation for today d/w the nurse recent labs and notes reviewed stable H&H NGTF at 40 cc will fu Subjective ROS Limited/Unobtainable: No Allergies: Coded Allergies: No Known Allergies (Unverified , 05/28/19) Objective Last 24 Hour Vital Signs Date Time Temp Pulse Resp B/P (MAP) Pulse Ox O2 Delivery O2 Flow Rate FiO2 07/07/19 10:25 100 07/07/19 10:00 110 31 118/71 (87) 100 07/07/19 09:00 116 33 132/73 (92) 100 07/07/19 08:40 30 07/07/19 08:40 111 30 30 07/07/19 08:30 114 23 115/72 (86) 100 07/07/19 08:00 Mechanical Ventilator 07/07/19 08:00 114 07/07/19 08:00 98.7 111 20 96/70 (79) 100 07/07/19 08:00 30 07/07/19 07:10 109 26 100 Mechanical Ventilator 30 109 26 30 07/07/19 07:00 110 33 89/63 (72) 100 07/07/19 06:30 110 24 07/07/19 06:00 34 135/73 Mechanical Ventilator 30 07/07/19 06:00 99.0 113 0 95/63 (74) 100 07/07/19 05:29 24 127/74 Mechanical Ventilator 30 07/07/19 05:00 31 113/75 Mechanical Ventilator 30 07/07/19 05:00 126 33 113/75 (88) 100 07/07/19 04:00 Mechanical Ventilator 07/07/19 04:00 30 125/86 Mechanical Ventilator 30 07/07/19 04:00 125 25 125/86 (99) 98 07/07/19 04:00 105 07/07/19 04:00 30 07/07/19 03:39 107 26 100 Mechanical Ventilator 30 111 26 30 07/07/19 03:00 25 115/77 Mechanical Ventilator 30 07/07/19 03:00 112 26 115/77 (90) 100 07/07/19 02:00 98.9 106 1 91/61 (71) 100 07/07/19 02:00 25 126/80 Mechanical Ventilator 30 07/07/19 01:00 20 116/67 Mechanical Ventilator 30 07/07/19 01:00 106 22 91/59 (70) 100 07/07/19 00:00 Mechanical Ventilator 07/07/19 00:00 30 07/07/19 00:00 24 101/65 Mechanical Ventilator 30 07/07/19 00:00 111 07/07/19 00:00 108 25 121/73 (89) 100 07/06/19 23:43 111 28 100 Mechanical Ventilator 30 113 27 30 07/06/19 23:00 111 27 113/72 (86) 100 07/06/19 23:00 26 123/71 Mechanical Ventilator 30 07/06/19 23:00 96/65 07/06/19 22:00 26 149/73 Mechanical Ventilator 30 07/06/19 22:00 99.2 111 27 112/73 (86) 100 07/06/19 21:00 114 27 119/66 (83) 100 07/06/19 20:00 119 07/06/19 20:00 30 07/06/19 20:00 109 27 109/67 (81) 100 07/06/19 20:00 Mechanical Ventilator 07/06/19 19:56 112 28 100 Mechanical Ventilator 30 112 29 30 07/06/19 19:00 116 24 115/69 (84) 100 07/06/19 18:00 121 24 85/62 (70) 100 07/06/19 17:00 99.0 126 25 85/68 (74) 100 07/06/19 16:00 30 07/06/19 16:00 Mechanical Ventilator 07/06/19 16:00 124 22 78/57 (64) 99 07/06/19 15:00 137 37 97/63 (74) 99 07/06/19 14:52 145 38 100 Mechanical Ventilator 30 138 34 30 07/06/19 14:00 133 31 94/65 (75) 99 07/06/19 13:00 98.8 120 29 106/79 (88) 97 07/06/19 12:00 Mechanical Ventilator 07/06/19 12:00 99 22 147/84 (105) 95 07/06/19 12:00 100 07/06/19 12:00 30 07/06/19 12:00 96 20 147/84 (105) 96 Intake and Output 07/06/19 07/07/19 19:00 07:00 Intake Total 570 ml 482 ml Output Total 1015 ml 0 ml Balance -445 ml 482 ml Free Water 150 ml 100 ml IV Total 32 ml Tube Feeding 420 ml 350 ml Output Urine Total 15 ml 0 ml Hemodialysis UF 1000 ml # Bowel Movements 1 1 Laboratory Tests 07/07/19 03:30: White Blood Count 15.2H, Red Blood Count 3.34L, Hemoglobin 9.7L, Hematocrit 30.7L, Mean Corpuscular Volume 92, Mean Corpuscular Hemoglobin 28.9, Mean Corpuscular Hemoglobin Concent 31.5L, Red Cell Distribution Width 16.6H, Platelet Count 462H, Mean Platelet Volume 6.3L, Neutrophils (%) (Auto) 77.0H, Lymphocytes (%) (Auto) 13.3L, Monocytes (%) (Auto) 6.8, Eosinophils (%) (Auto) 2.0, Basophils (%) (Auto) 0.9, Prothrombin Time 12.1H, Prothromb Time International Ratio 1.1, Activated Partial Thromboplast Time 25, Sodium Level 141, Potassium Level 4.2, Chloride Level 99, Carbon Dioxide Level 28, Anion Gap 14, Blood Urea Nitrogen 56H, Creatinine 8.1H, Estimat Glomerular Filtration Rate 6.7, Glucose Level 215H, Calcium Level 9.7, Phosphorus Level 5.2H, Magnesium Level 2.8H, Total Bilirubin 0.4, Aspartate Amino Transf (AST/SGOT) 34 , Alanine Aminotransferase (ALT/SGPT) 15, Alkaline Phosphatase 107, Total Protein 10.1H, Albumin 3.1L, Globulin 7.0, Albumin/Globulin Ratio 0.4L 07/07/19 09:59: Arterial Blood pH 7.411, Arterial Blood Partial Pressure CO2 42.3, Arterial Blood Partial Pressure O2 107.3H, Arterial Blood HCO3 26.3H, Arterial Blood Oxygen Saturation 97.9, Arterial Blood Base Excess 1.5, Kosta Test Positive Height (Feet): 6 Height (Inches): 1.00 Weight (Pounds): 225 General Appearance: alert EENT: normal ENT inspection Neck: supple Cardiovascular: tachycardia Respiratory/Chest: decreased breath sounds Abdomen: soft, hypoactive bowel sounds Extremities: non-tender Marito Ramires MD July 07, 2019 11:24
--- NOTE | 2019-07-07 12:10 | Infectious Diseases Prog Note ---
Assessment/Plan Assessment/Plan IMPRESSION: 1. COVID19 pneumonia Positive: 05/27, 05/31 , 06/05, 06/09 ,06/17, 06/19, 06/23, 06/27 2. MRSA carrier. 3. Chronic kidney disease , end-stage renal disease. 4. COPD. 5. Hypertension. 6. Anemia. 7. Hypothyroidism. 8. Hyperlipidemia. 9. Major depression. 10. Leukocytosis 11. Hypotension 12. Hepatitis C 13. Hyperuricemia 14. Diarrhea 15. septic shock resolved 16. Leukocytosis 17. Bacteremia with Staph epidermidis Subsequent cultures negative RECOMMENDATIONS: PermCath placement after tracheostomy Case was D/W surgeon Continue Vancomycin Will have tracheostomy Finished hydroxychloroquine. Will f/u COVID19 test Case was D/W RN Subjective ROS Limited/Unobtainable: Yes Constitutional: Denies: fever Respiratory: Reports: other - will have tracheostomy tomorrow Neurologic: Reports: confusion Allergies: Coded Allergies: No Known Allergies (Unverified , 05/28/19) Objective Vital Signs Last 24 Hour Vital Signs Date Time Temp Pulse Resp B/P (MAP) Pulse Ox O2 Delivery O2 Flow Rate FiO2 07/07/19 11:45 118 29 100 Mechanical Ventilator 30 118 29 30 07/07/19 10:25 100 07/07/19 10:00 110 31 118/71 (87) 100 07/07/19 09:00 116 33 132/73 (92) 100 07/07/19 08:40 30 07/07/19 08:40 111 30 30 07/07/19 08:30 114 23 115/72 (86) 100 07/07/19 08:00 Mechanical Ventilator 07/07/19 08:00 114 07/07/19 08:00 98.7 111 20 96/70 (79) 100 07/07/19 08:00 30 07/07/19 07:10 109 26 100 Mechanical Ventilator 30 109 26 30 07/07/19 07:00 110 33 89/63 (72) 100 07/07/19 06:30 110 24 07/07/19 06:00 34 135/73 Mechanical Ventilator 30 07/07/19 06:00 99.0 113 0 95/63 (74) 100 07/07/19 05:29 24 127/74 Mechanical Ventilator 30 07/07/19 05:00 31 113/75 Mechanical Ventilator 30 07/07/19 05:00 126 33 113/75 (88) 100 07/07/19 04:00 Mechanical Ventilator 07/07/19 04:00 30 125/86 Mechanical Ventilator 30 07/07/19 04:00 125 25 125/86 (99) 98 07/07/19 04:00 105 07/07/19 04:00 30 07/07/19 03:39 107 26 100 Mechanical Ventilator 30 111 26 30 07/07/19 03:00 25 115/77 Mechanical Ventilator 30 07/07/19 03:00 112 26 115/77 (90) 100 07/07/19 02:00 98.9 106 1 91/61 (71) 100 07/07/19 02:00 25 126/80 Mechanical Ventilator 30 07/07/19 01:00 20 116/67 Mechanical Ventilator 30 07/07/19 01:00 106 22 91/59 (70) 100 07/07/19 00:00 Mechanical Ventilator 07/07/19 00:00 30 07/07/19 00:00 24 101/65 Mechanical Ventilator 30 07/07/19 00:00 111 07/07/19 00:00 108 25 121/73 (89) 100 07/06/19 23:43 111 28 100 Mechanical Ventilator 30 113 27 30 07/06/19 23:00 111 27 113/72 (86) 100 07/06/19 23:00 26 123/71 Mechanical Ventilator 30 07/06/19 23:00 96/65 07/06/19 22:00 26 149/73 Mechanical Ventilator 30 07/06/19 22:00 99.2 111 27 112/73 (86) 100 07/06/19 21:00 114 27 119/66 (83) 100 07/06/19 20:00 119 07/06/19 20:00 30 07/06/19 20:00 109 27 109/67 (81) 100 07/06/19 20:00 Mechanical Ventilator 07/06/19 19:56 112 28 100 Mechanical Ventilator 30 112 29 30 07/06/19 19:00 116 24 115/69 (84) 100 07/06/19 18:00 121 24 85/62 (70) 100 07/06/19 17:00 99.0 126 25 85/68 (74) 100 07/06/19 16:00 30 07/06/19 16:00 Mechanical Ventilator 07/06/19 16:00 124 22 78/57 (64) 99 07/06/19 15:00 137 37 97/63 (74) 99 07/06/19 14:52 145 38 100 Mechanical Ventilator 30 138 34 30 07/06/19 14:00 133 31 94/65 (75) 99 07/06/19 13:00 98.8 120 29 106/79 (88) 97 Height (Feet): 6 Height (Inches): 1.00 Weight (Pounds): 225 HEENT: other Cardiovascular: tachycardia, other - Femoral HD & subclavian central line Abdomen: soft, non tender, other - NGt ube Extremities: no edema Neurologic/Psychiatric: disoriented Microbiology Date/Time Source Procedure Growth Status 07/05/19 03:25 Blood Blood Culture - Preliminary NO GROWTH AFTER 24 HOURS Resulted 07/05/19 03:16 Blood Blood Culture - Preliminary NO GROWTH AFTER 24 HOURS Resulted Laboratory Tests Test 07/07/19 03:30 07/07/19 09:59 White Blood Count 15.2 K/UL (4.8-10.8) H Red Blood Count 3.34 M/UL (4.70-6.10) L Hemoglobin 9.7 G/DL (14.2-18.0) L Hematocrit 30.7 % (42.0-52.0) L Mean Corpuscular Volume 92 FL (80-99) Mean Corpuscular Hemoglobin 28.9 PG (27.0-31.0) Mean Corpuscular Hemoglobin Concent 31.5 G/DL (32.0-36.0) L Red Cell Distribution Width 16.6 % (11.6-14.8) H Platelet Count 462 K/UL (150-450) H Mean Platelet Volume 6.3 FL (6.5-10.1) L Neutrophils (%) (Auto) 77.0 % (45.0-75.0) H Lymphocytes (%) (Auto) 13.3 % (20.0-45.0) L Monocytes (%) (Auto) 6.8 % (1.0-10.0) Eosinophils (%) (Auto) 2.0 % (0.0-3.0) Basophils (%) (Auto) 0.9 % (0.0-2.0) Prothrombin Time 12.1 SEC (9.30-11.50) H Prothromb Time International Ratio 1.1 (0.9-1.1) Activated Partial Thromboplast Time 25 SEC (23-33) Sodium Level 141 MMOL/L (136-145) Potassium Level 4.2 MMOL/L (3.5-5.1) Chloride Level 99 MMOL/L (98-107) Carbon Dioxide Level 28 MMOL/L (21-32) Anion Gap 14 mmol/L (5-15) Blood Urea Nitrogen 56 mg/dL (7-18) H Creatinine 8.1 MG/DL (0.55-1.30) H Estimat Glomerular Filtration Rate 6.7 mL/min (>60) Glucose Level 215 MG/DL (74-106) H Calcium Level 9.7 MG/DL (8.5-10.1) Phosphorus Level 5.2 MG/DL (2.5-4.9) H Magnesium Level 2.8 MG/DL (1.8-2.4) H Total Bilirubin 0.4 MG/DL (0.2-1.0) Aspartate Amino Transf (AST/SGOT) 34 U/L (15-37) Alanine Aminotransferase (ALT/SGPT) 15 U/L (12-78) Alkaline Phosphatase 107 U/L (46-116) Total Protein 10.1 G/DL (6.4-8.2) H Albumin 3.1 G/DL (3.4-5.0) L Globulin 7.0 g/dL Albumin/Globulin Ratio 0.4 (1.0-2.7) L Arterial Blood pH 7.411 (7.350-7.450) Arterial Blood Partial Pressure CO2 42.3 mmHg (35.0-45.0) Arterial Blood Partial Pressure O2 107.3 mmHg (75.0-100.0) H Arterial Blood HCO3 26.3 mmol/L (22.0-26.0) H Arterial Blood Oxygen Saturation 97.9 % (95-100) Arterial Blood Base Excess 1.5 (-2-2) Kosta Test Positive Current Medications Medications (Trade) Dose Ordered Sig/Anthony Route PRN Reason Start Time Stop Time Status Last Admin Dose Admin Acetaminophen (Tylenol) 650 mg Q4H PRN NG Temp >100.5 06/13/19 11:00 07/13/19 10:59 07/05/19 08:15 Albuterol Sulfate (Proventil MDI) 2 puff Q4HRT INH 06/06/19 23:00 08/30/19 18:59 07/07/19 11:45 Chlorhexidine Gluconate (Michelle-Hex 2%) 1 applic DAILY@2000 TOPIC 06/07/19 20:00 09/05/19 19:59 07/06/19 20:22 Dextrose (Dextrose 50%) 25 ml Q30M PRN IV Hypoglycemia 06/20/19 19:30 09/18/19 19:29 Dextrose (Dextrose 50%) 50 ml Q30M PRN IV Hypoglycemia 06/20/19 19:30 09/18/19 19:29 Dopamine HCl/ Dextrose 250 ml @ 0 mls/hr Q24H PRN IV For hypotension 06/13/19 08:15 09/11/19 08:14 Enoxaparin Sodium (Lovenox) 30 mg DAILY SUBQ 06/07/19 09:00 08/27/19 08:59 07/07/19 08:15 Epoetin Aftab (Epoetin Aftab(ESRD on dialysis)) 10,000 unit FRI-FRI-FRI SUBQ 06/07/19 21:00 08/31/19 20:59 07/05/19 21:50 Fentanyl Citrate 250 ml @ 0 mls/hr Q24H IV 06/24/19 06:00 09/22/19 05:59 07/02/19 11:50 Hydralazine HCl (Apresoline) 10 mg Q4H PRN IV Blood pressure over 160 systol 06/07/19 10:15 09/05/19 10:14 Insulin Aspart (NovoLOG) EVERY 6 HOURS SUBQ 06/21/19 00:00 09/19/19 00:00 07/07/19 05:42 Metoclopramide HCl (Reglan) 5 mg Q8H PRN IVP Nausea & Vomiting 06/18/19 12:00 07/18/19 11:59 06/19/19 00:50 Midodrine (Pro-Amatine) 10 mg THREE TIMES A DAY NG 06/09/19 13:00 09/07/19 12:59 07/07/19 08:14 Norepinephrine Bitartrate 8 mg/ Dextrose 283 ml @ 0 mls/hr Q24H IV 06/23/19 23:00 07/23/19 22:59 06/25/19 14:38 Pantoprazole (Protonix) 40 mg DAILY IVP 06/19/19 09:00 07/19/19 08:59 07/07/19 08:14 Sevelamer Carbonate (Renvela) 1,600 mg Q8HR NG 06/25/19 22:00 09/05/19 12:59 07/07/19 05:39 Vancomycin HCl (Vanco rx to dose) 1 ea DAILY PRN MISC Per rx protocol 07/01/19 11:00 07/31/19 10:59 Ted Leyva MD July 07, 2019 12:10
--- NOTE | 2019-07-07 16:37 | Cardiac Electrophysiology PN ---
Assessment/Plan Assessment/Plan 1. Elevated troponin. Low level and flat due to renal failure. On Aspirin. EF 60 %. 2. S/P Septic shock. Off Levo 3. ESRD, on HD per Dr. Cole. 4. COVID-19 positive pneumonia. On the Vent with 30% Fio2. Fu by Dr. Mckeon. Failed weanin. Tracheostomy in am 5. MRSA carrier. 6. COPD. 7. Anemia. 8. Depression. DW RN Subjective Subjective Is Covid positive x 3 in isolation in ICU, On vent on 30% Fio2, PEEP 5. Off pressors. RN at bedside. Scheduled for Tracheostomy in am Objective Last 24 Hour Vital Signs Date Time Temp Pulse Resp B/P (MAP) Pulse Ox O2 Delivery O2 Flow Rate FiO2 07/07/19 15:30 108 25 127/74 (91) 100 07/07/19 15:15 107 23 114/75 (88) 100 07/07/19 15:10 108 28 100 Mechanical Ventilator 30 108 28 30 07/07/19 15:00 100 15 139/83 (101) 100 07/07/19 14:45 101 0 91/66 (74) 100 07/07/19 14:30 107 20 126/78 (94) 100 07/07/19 14:15 107 19 132/72 (92) 100 07/07/19 14:09 34 110/80 30 07/07/19 14:00 105 11 110/80 (90) 100 07/07/19 13:45 106 5 98/63 (75) 100 07/07/19 13:30 109 9 114/79 (91) 100 07/07/19 13:15 120 27 138/82 (100) 100 07/07/19 13:00 107 21 128/79 (95) 100 07/07/19 12:52 108 23 113/69 (84) 100 07/07/19 12:45 111 19 123/74 (90) 100 07/07/19 12:30 114 24 105/76 (86) 100 07/07/19 12:15 116 19 103/68 (80) 100 07/07/19 12:05 30 07/07/19 12:00 122 07/07/19 12:00 30 07/07/19 12:00 99.3 118 22 111/72 (85) 100 07/07/19 12:00 Mechanical Ventilator 07/07/19 11:45 118 29 100 Mechanical Ventilator 30 118 29 30 07/07/19 11:00 110 34 115/78 (90) 100 07/07/19 10:25 100 07/07/19 10:00 110 31 118/71 (87) 100 07/07/19 09:00 116 33 132/73 (92) 100 07/07/19 08:40 30 07/07/19 08:40 111 30 30 07/07/19 08:30 114 23 115/72 (86) 100 07/07/19 08:00 Mechanical Ventilator 07/07/19 08:00 114 07/07/19 08:00 98.7 111 20 96/70 (79) 100 07/07/19 08:00 30 07/07/19 07:10 109 26 100 Mechanical Ventilator 30 109 26 30 07/07/19 07:00 110 33 89/63 (72) 100 07/07/19 06:30 110 24 07/07/19 06:00 34 135/73 Mechanical Ventilator 30 07/07/19 06:00 99.0 113 0 95/63 (74) 100 07/07/19 05:29 24 127/74 Mechanical Ventilator 30 07/07/19 05:00 31 113/75 Mechanical Ventilator 30 07/07/19 05:00 126 33 113/75 (88) 100 07/07/19 04:00 Mechanical Ventilator 07/07/19 04:00 30 125/86 Mechanical Ventilator 30 07/07/19 04:00 125 25 125/86 (99) 98 07/07/19 04:00 105 07/07/19 04:00 30 07/07/19 03:39 107 26 100 Mechanical Ventilator 30 111 26 30 07/07/19 03:00 25 115/77 Mechanical Ventilator 30 07/07/19 03:00 112 26 115/77 (90) 100 07/07/19 02:00 98.9 106 1 91/61 (71) 100 07/07/19 02:00 25 126/80 Mechanical Ventilator 30 07/07/19 01:00 20 116/67 Mechanical Ventilator 30 07/07/19 01:00 106 22 91/59 (70) 100 07/07/19 00:00 Mechanical Ventilator 07/07/19 00:00 30 07/07/19 00:00 24 101/65 Mechanical Ventilator 30 07/07/19 00:00 111 07/07/19 00:00 108 25 121/73 (89) 100 07/06/19 23:43 111 28 100 Mechanical Ventilator 30 113 27 30 07/06/19 23:00 111 27 113/72 (86) 100 07/06/19 23:00 26 123/71 Mechanical Ventilator 30 07/06/19 23:00 96/65 07/06/19 22:00 26 149/73 Mechanical Ventilator 30 07/06/19 22:00 99.2 111 27 112/73 (86) 100 07/06/19 21:00 114 27 119/66 (83) 100 07/06/19 20:00 119 07/06/19 20:00 30 07/06/19 20:00 109 27 109/67 (81) 100 07/06/19 20:00 Mechanical Ventilator 07/06/19 19:56 112 28 100 Mechanical Ventilator 30 112 29 30 07/06/19 19:00 116 24 115/69 (84) 100 07/06/19 18:00 121 24 85/62 (70) 100 07/06/19 17:00 99.0 126 25 85/68 (74) 100 Intake and Output 07/06/19 07/07/19 19:00 07:00 Intake Total 570 ml 482 ml Output Total 1015 ml 0 ml Balance -445 ml 482 ml Free Water 150 ml 100 ml IV Total 32 ml Tube Feeding 420 ml 350 ml Output Urine Total 15 ml 0 ml Hemodialysis UF 1000 ml # Bowel Movements 1 1 Laboratory Tests Test 07/07/19 03:30 07/07/19 09:59 White Blood Count 15.2 K/UL (4.8-10.8) H Red Blood Count 3.34 M/UL (4.70-6.10) L Hemoglobin 9.7 G/DL (14.2-18.0) L Hematocrit 30.7 % (42.0-52.0) L Mean Corpuscular Volume 92 FL (80-99) Mean Corpuscular Hemoglobin 28.9 PG (27.0-31.0) Mean Corpuscular Hemoglobin Concent 31.5 G/DL (32.0-36.0) L Red Cell Distribution Width 16.6 % (11.6-14.8) H Platelet Count 462 K/UL (150-450) H Mean Platelet Volume 6.3 FL (6.5-10.1) L Neutrophils (%) (Auto) 77.0 % (45.0-75.0) H Lymphocytes (%) (Auto) 13.3 % (20.0-45.0) L Monocytes (%) (Auto) 6.8 % (1.0-10.0) Eosinophils (%) (Auto) 2.0 % (0.0-3.0) Basophils (%) (Auto) 0.9 % (0.0-2.0) Prothrombin Time 12.1 SEC (9.30-11.50) H Prothromb Time International Ratio 1.1 (0.9-1.1) Activated Partial Thromboplast Time 25 SEC (23-33) Sodium Level 141 MMOL/L (136-145) Potassium Level 4.2 MMOL/L (3.5-5.1) Chloride Level 99 MMOL/L (98-107) Carbon Dioxide Level 28 MMOL/L (21-32) Anion Gap 14 mmol/L (5-15) Blood Urea Nitrogen 56 mg/dL (7-18) H Creatinine 8.1 MG/DL (0.55-1.30) H Estimat Glomerular Filtration Rate 6.7 mL/min (>60) Glucose Level 215 MG/DL (74-106) H Calcium Level 9.7 MG/DL (8.5-10.1) Phosphorus Level 5.2 MG/DL (2.5-4.9) H Magnesium Level 2.8 MG/DL (1.8-2.4) H Total Bilirubin 0.4 MG/DL (0.2-1.0) Aspartate Amino Transf (AST/SGOT) 34 U/L (15-37) Alanine Aminotransferase (ALT/SGPT) 15 U/L (12-78) Alkaline Phosphatase 107 U/L (46-116) Total Protein 10.1 G/DL (6.4-8.2) H Albumin 3.1 G/DL (3.4-5.0) L Globulin 7.0 g/dL Albumin/Globulin Ratio 0.4 (1.0-2.7) L Arterial Blood pH 7.411 (7.350-7.450) Arterial Blood Partial Pressure CO2 42.3 mmHg (35.0-45.0) Arterial Blood Partial Pressure O2 107.3 mmHg (75.0-100.0) H Arterial Blood HCO3 26.3 mmol/L (22.0-26.0) H Arterial Blood Oxygen Saturation 97.9 % (95-100) Arterial Blood Base Excess 1.5 (-2-2) Kosta Test Positive Microbiology Date/Time Source Procedure Growth Status 07/05/19 03:25 Blood Blood Culture - Preliminary NO GROWTH AFTER 24 HOURS Resulted 07/05/19 03:16 Blood Blood Culture - Preliminary NO GROWTH AFTER 24 HOURS Resulted Objective HEAD AND NECK: No JVD. Orally intubated LUNGS: Decreased breath sounds. CARDIOVASCULAR: Regular S1 and S2. Tachycardic. ABDOMEN: Soft. EXTREMITIES: No pitting edema. New Left FV Gio Engle MD July 07, 2019 16:37
--- NOTE | 2019-07-07 17:52 | Surgery Progress Note ---
Surgery Progress Note Subjective Procedure Performed Right femoral temporary hemodialysis catheter insertion Additional Comments Patient seen and examined bedside. There was considerations for potential extubation today but after 2 hours of weaning trial off sedation patient was significantly tachycardic in the 120s as well as tachypneic with respiratory rate in the 40s. His gases were reviewed imaging was reviewed overall condition was reviewed discussed it with automatic i threading machine feeder as well given the patient 's condition history current status he is very high risk for extubation given his clinical course and above. He has been intubated for prolonged period of time and will likely require support. He requires a safe airway. Given this we will plan to proceed with tracheostomy tomorrow. Case was discussed with the conservator and consent was obtained. In patient's best interest and safety medically necessary for tracheostomy as attempted extubation is very high risk in this patient. Objective Last 24 Hour Vital Signs Date Time Temp Pulse Resp B/P (MAP) Pulse Ox O2 Delivery O2 Flow Rate FiO2 07/07/19 17:00 104 15 101/66 (78) 100 07/07/19 16:56 104 19 142/85 (104) 100 07/07/19 16:45 104 11 89/65 (73) 100 07/07/19 16:30 108 21 128/78 (95) 100 07/07/19 16:15 102 17 118/71 (87) 100 07/07/19 16:00 99.4 106 1 99/65 (76) 100 07/07/19 16:00 Mechanical Ventilator 07/07/19 16:00 115 07/07/19 15:45 114 31 126/76 (93) 100 07/07/19 15:30 108 25 127/74 (91) 100 07/07/19 15:15 107 23 114/75 (88) 100 07/07/19 15:10 108 28 100 Mechanical Ventilator 30 108 28 30 07/07/19 15:00 100 15 139/83 (101) 100 07/07/19 14:45 101 0 91/66 (74) 100 07/07/19 14:30 107 20 126/78 (94) 100 07/07/19 14:15 107 19 132/72 (92) 100 07/07/19 14:09 34 110/80 30 07/07/19 14:00 105 11 110/80 (90) 100 07/07/19 13:45 106 5 98/63 (75) 100 07/07/19 13:30 109 9 114/79 (91) 100 07/07/19 13:15 120 27 138/82 (100) 100 07/07/19 13:00 107 21 128/79 (95) 100 07/07/19 12:52 108 23 113/69 (84) 100 07/07/19 12:45 111 19 123/74 (90) 100 07/07/19 12:30 114 24 105/76 (86) 100 07/07/19 12:15 116 19 103/68 (80) 100 07/07/19 12:05 30 07/07/19 12:00 122 07/07/19 12:00 30 07/07/19 12:00 99.3 118 22 111/72 (85) 100 07/07/19 12:00 Mechanical Ventilator 07/07/19 11:45 118 29 100 Mechanical Ventilator 30 118 29 30 07/07/19 11:00 110 34 115/78 (90) 100 07/07/19 10:25 100 07/07/19 10:00 110 31 118/71 (87) 100 07/07/19 09:00 116 33 132/73 (92) 100 07/07/19 08:40 30 07/07/19 08:40 111 30 30 07/07/19 08:30 114 23 115/72 (86) 100 07/07/19 08:00 Mechanical Ventilator 07/07/19 08:00 114 07/07/19 08:00 98.7 111 20 96/70 (79) 100 07/07/19 08:00 30 07/07/19 07:10 109 26 100 Mechanical Ventilator 30 109 26 30 07/07/19 07:00 110 33 89/63 (72) 100 07/07/19 06:30 110 24 07/07/19 06:00 34 135/73 Mechanical Ventilator 30 07/07/19 06:00 99.0 113 0 95/63 (74) 100 07/07/19 05:29 24 127/74 Mechanical Ventilator 30 07/07/19 05:00 31 113/75 Mechanical Ventilator 30 07/07/19 05:00 126 33 113/75 (88) 100 07/07/19 04:00 Mechanical Ventilator 07/07/19 04:00 30 125/86 Mechanical Ventilator 30 07/07/19 04:00 125 25 125/86 (99) 98 07/07/19 04:00 105 07/07/19 04:00 30 07/07/19 03:39 107 26 100 Mechanical Ventilator 30 111 26 30 07/07/19 03:00 25 115/77 Mechanical Ventilator 30 07/07/19 03:00 112 26 115/77 (90) 100 07/07/19 02:00 98.9 106 1 91/61 (71) 100 07/07/19 02:00 25 126/80 Mechanical Ventilator 30 07/07/19 01:00 20 116/67 Mechanical Ventilator 30 07/07/19 01:00 106 22 91/59 (70) 100 07/07/19 00:00 Mechanical Ventilator 07/07/19 00:00 30 07/07/19 00:00 24 101/65 Mechanical Ventilator 30 07/07/19 00:00 111 07/07/19 00:00 108 25 121/73 (89) 100 07/06/19 23:43 111 28 100 Mechanical Ventilator 30 113 27 30 07/06/19 23:00 111 27 113/72 (86) 100 07/06/19 23:00 26 123/71 Mechanical Ventilator 30 07/06/19 23:00 96/65 07/06/19 22:00 26 149/73 Mechanical Ventilator 30 07/06/19 22:00 99.2 111 27 112/73 (86) 100 07/06/19 21:00 114 27 119/66 (83) 100 07/06/19 20:00 119 07/06/19 20:00 30 07/06/19 20:00 109 27 109/67 (81) 100 07/06/19 20:00 Mechanical Ventilator 07/06/19 19:56 112 28 100 Mechanical Ventilator 30 112 29 30 07/06/19 19:00 116 24 115/69 (84) 100 07/06/19 18:00 121 24 85/62 (70) 100 I&O Intake and Output 07/06/19 07/07/19 19:00 07:00 Intake Total 570 ml 482 ml Output Total 1015 ml 0 ml Balance -445 ml 482 ml Free Water 150 ml 100 ml IV Total 32 ml Tube Feeding 420 ml 350 ml Output Urine Total 15 ml 0 ml Hemodialysis UF 1000 ml # Bowel Movements 1 1 Dressing: other Wound: other Drains: other Cardiovascular: RSR Respiratory: decreased breath sounds Abdomen: soft, non-tender, present bowel sounds Extremities: no cyanosis Laboratory Tests Test 07/07/19 03:30 07/07/19 09:59 White Blood Count 15.2 K/UL (4.8-10.8) H Red Blood Count 3.34 M/UL (4.70-6.10) L Hemoglobin 9.7 G/DL (14.2-18.0) L Hematocrit 30.7 % (42.0-52.0) L Mean Corpuscular Volume 92 FL (80-99) Mean Corpuscular Hemoglobin 28.9 PG (27.0-31.0) Mean Corpuscular Hemoglobin Concent 31.5 G/DL (32.0-36.0) L Red Cell Distribution Width 16.6 % (11.6-14.8) H Platelet Count 462 K/UL (150-450) H Mean Platelet Volume 6.3 FL (6.5-10.1) L Neutrophils (%) (Auto) 77.0 % (45.0-75.0) H Lymphocytes (%) (Auto) 13.3 % (20.0-45.0) L Monocytes (%) (Auto) 6.8 % (1.0-10.0) Eosinophils (%) (Auto) 2.0 % (0.0-3.0) Basophils (%) (Auto) 0.9 % (0.0-2.0) Prothrombin Time 12.1 SEC (9.30-11.50) H Prothromb Time International Ratio 1.1 (0.9-1.1) Activated Partial Thromboplast Time 25 SEC (23-33) Sodium Level 141 MMOL/L (136-145) Potassium Level 4.2 MMOL/L (3.5-5.1) Chloride Level 99 MMOL/L (98-107) Carbon Dioxide Level 28 MMOL/L (21-32) Anion Gap 14 mmol/L (5-15) Blood Urea Nitrogen 56 mg/dL (7-18) H Creatinine 8.1 MG/DL (0.55-1.30) H Estimat Glomerular Filtration Rate 6.7 mL/min (>60) Glucose Level 215 MG/DL (74-106) H Calcium Level 9.7 MG/DL (8.5-10.1) Phosphorus Level 5.2 MG/DL (2.5-4.9) H Magnesium Level 2.8 MG/DL (1.8-2.4) H Total Bilirubin 0.4 MG/DL (0.2-1.0) Aspartate Amino Transf (AST/SGOT) 34 U/L (15-37) Alanine Aminotransferase (ALT/SGPT) 15 U/L (12-78) Alkaline Phosphatase 107 U/L (46-116) Total Protein 10.1 G/DL (6.4-8.2) H Albumin 3.1 G/DL (3.4-5.0) L Globulin 7.0 g/dL Albumin/Globulin Ratio 0.4 (1.0-2.7) L Arterial Blood pH 7.411 (7.350-7.450) Arterial Blood Partial Pressure CO2 42.3 mmHg (35.0-45.0) Arterial Blood Partial Pressure O2 107.3 mmHg (75.0-100.0) H Arterial Blood HCO3 26.3 mmol/L (22.0-26.0) H Arterial Blood Oxygen Saturation 97.9 % (95-100) Arterial Blood Base Excess 1.5 (-2-2) Kosta Test Positive Plan Problems: (1) Suspected COVID-19 virus infection (2) HTN (hypertension) (3) CASSANDRA (acute kidney injury) Assessment & Plan: Needs urgent HD needs access patient okay and consented see note will follow with recs new line placed discussed with team and nephrology HD line functional when checked has TPA now please use appropriately Cathflo used again this flow during dialysis on 430 was low. Will monitor may need line change 5/4 plan for HD as per renal may need to take fluid off with HD edema anasarca dressings saturated and changed will monitor cont with HD (4) Anemia in chronic kidney disease (CKD) (5) Anemia (6) Renal failure (7) Suspected COVID-19 virus infection Assessment & Plan: Pt deconditioned and despite all skin preventions Pt noted to have developed several pressure injuries. . Stable dry eschar noted to clefts of R and L ears. No erythema noted . DTPI noted to L trochanter. Base of injury is maroon in colour with marginal erythema along borders. Partially opened DTPI Sacrum, R and L Buttocks. Base of wound is maroon with two small open wounds L sacrum and L buttocks. Pt has an APM/MOMO Mattress overlay and is being positioned with pillows as per tolerance and within protocols. worsening despite medical efforts will cont to provide therapy Tx.Plan: Apply Cavilon Skin Barrier to both ears Daily and prn. Apply Moisture Barrier Paste to Sacrum,R and L Buttocks. Cover with Optifoam drsgs. Change every 3 days and PRN. Apply Cavilon Skin Barrier to R and L trochanter. Cover each site with Optifoam drsgs.Change every 7 days and PRN. Apply Cavilon Skin Barrier to both heels. Cover each heel with Optifoam drsg. Change every 7 days and prn. Off-load heels with pillow. Reposition at least every 2hours or as tolerated. APM/MOMO Mattress overlay. (8) COVID-19 Assessment & Plan: COVID + c diff negative febrile leukocytosis renal insufficiency see above cont resp care Rx as per ID worsening on vent support now cxr noted on pressors prognosis guarded repeat covid ++ weaning vent and pressors off slowly showing improvement slowly recovering will need trach as unable to wean vent safely [facility] [place] [facility]. consent obtained plan for tracheostomy Yaniv Mast July 07, 2019 17:52
--- NOTE | 2019-07-07 19:45 | Pulmonolgy Critical Care Note ---
Critical Care - Asmt/Plan Assessment/Plan: Pulmonary CCM Progress Note HPI: Patient is a 68 year old man, half-way resident, admitted c/o shortness of breath, cough, noted to have Covid 19 Pneumonia, Respiratory Failure S/p intubation, CXR improving infiltrates ETT adjusted Septic Shock, pressors off Preserved EF FIO2 40%-50%, P5, adequate O2 sats, remains on ACVC, did not tolerate weaning again, tachycardic today on weaning trial, less sedated, minimal secretions Anemic ID following See earlier Past Medical History: COPD, CKD, Hypertension, Anemia Allergies: No Known Allergies Improving Pulmonary Status on HD Physical Exam Vital Signs Noted Sedated on ventilator WDWN, no distress HEENT: NCAT,moist mm Chest: Occasional rhonchi Heart: HS1, HS2, RRR Abdomen: SNTND, no masses Extremities: Well perfused, no edema 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 focal signs, no seizures, sedated Impression: COVID-19 virus infection Pneumonia Respiratory failure on ventilator, not tolerating weaning CKD - on HD Hypotension on pressors previously Cardiomegaly Lymphopenia Elevated AST COPD Chronic Kidney Disease - HD H/o Hypertension Worsening anemia Plan: For Tracheostomy tomorrow Antibiotics per ID HD Pressors PRN ACVC - wean as tolerated MANAGER CT Medications 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 Monitor cultures/viral studies PPX Hemodialysis per Renal Psychiatry following [facility] - [facility] requested for when available, [facility] - not available as yet Laboratory Tests Noted: CXR: Hypoventilatory exam, interstitial changes, cardiomegaly, improving infiltrates Subjective ROS Limited/Unobtainable: No Constitutional: Denies: fever Respiratory: Reports: dry cough, shortness of breath Gastrointestinal/Abdominal: Reports: diarrhea, other - colace was stopped Psychiatric: Reports: other - refuses labs Allergies: Coded Allergies: No Known Allergies (Unverified , 05/28/19) All Systems: reviewed and negative except above Labs noted Critical Care - Objective Last 24 Hour Vital Signs Date Time Temp Pulse Resp B/P (MAP) Pulse Ox O2 Delivery O2 Flow Rate FiO2 07/07/19 19:00 31 150/86 Mechanical Ventilator 30 07/07/19 19:00 115 31 150/86 (107) 100 07/07/19 18:45 113 21 133/73 (93) 100 07/07/19 18:30 104 25 98/64 (75) 100 07/07/19 18:15 104 26 90/70 (77) 100 07/07/19 18:00 113 22 106/70 (82) 100 07/07/19 18:00 26 106/70 Mechanical Ventilator 30 07/07/19 17:45 109 20 130/85 (100) 100 07/07/19 17:30 103 0 93/72 (79) 100 07/07/19 17:30 20 93/72 Mechanical Ventilator 30 07/07/19 17:15 107 21 145/82 (103) 100 07/07/19 17:00 104 15 101/66 (78) 100 07/07/19 17:00 20 145/82 30 07/07/19 16:45 104 11 89/65 (73) 100 07/07/19 16:30 108 21 128/78 (95) 100 07/07/19 16:15 102 17 118/71 (87) 100 07/07/19 16:00 99.4 106 1 99/65 (76) 100 07/07/19 16:00 Mechanical Ventilator 07/07/19 16:00 20 118/71 Mechanical Ventilator 30 07/07/19 16:00 115 07/07/19 15:45 114 31 126/76 (93) 100 07/07/19 15:30 108 25 127/74 (91) 100 07/07/19 15:15 107 23 114/75 (88) 100 07/07/19 15:10 108 28 100 Mechanical Ventilator 30 108 28 30 07/07/19 15:00 21 139/83 Mechanical Ventilator 30 07/07/19 15:00 100 15 139/83 (101) 100 07/07/19 14:45 101 0 91/66 (74) 100 07/07/19 14:30 107 20 126/78 (94) 100 07/07/19 14:15 107 19 132/72 (92) 100 07/07/19 14:09 34 110/80 30 07/07/19 14:00 105 11 110/80 (90) 100 07/07/19 13:45 106 5 98/63 (75) 100 07/07/19 13:30 109 9 114/79 (91) 100 07/07/19 13:15 120 27 138/82 (100) 100 07/07/19 13:00 107 21 128/79 (95) 100 07/07/19 12:52 108 23 113/69 (84) 100 07/07/19 12:45 111 19 123/74 (90) 100 07/07/19 12:30 114 24 105/76 (86) 100 07/07/19 12:15 116 19 103/68 (80) 100 07/07/19 12:05 30 07/07/19 12:00 122 07/07/19 12:00 30 07/07/19 12:00 99.3 118 22 111/72 (85) 100 07/07/19 12:00 Mechanical Ventilator 07/07/19 11:45 118 29 100 Mechanical Ventilator 30 118 29 30 07/07/19 11:00 110 34 115/78 (90) 100 07/07/19 10:25 100 07/07/19 10:00 110 31 118/71 (87) 100 07/07/19 09:00 116 33 132/73 (92) 100 07/07/19 08:40 30 07/07/19 08:40 111 30 30 07/07/19 08:30 114 23 115/72 (86) 100 07/07/19 08:00 Mechanical Ventilator 07/07/19 08:00 114 07/07/19 08:00 98.7 111 20 96/70 (79) 100 07/07/19 08:00 30 07/07/19 07:10 109 26 100 Mechanical Ventilator 30 109 26 30 07/07/19 07:00 110 33 89/63 (72) 100 07/07/19 06:30 110 24 07/07/19 06:00 34 135/73 Mechanical Ventilator 30 07/07/19 06:00 99.0 113 0 95/63 (74) 100 07/07/19 05:29 24 127/74 Mechanical Ventilator 30 07/07/19 05:00 31 113/75 Mechanical Ventilator 30 07/07/19 05:00 126 33 113/75 (88) 100 07/07/19 04:00 Mechanical Ventilator 07/07/19 04:00 30 125/86 Mechanical Ventilator 30 07/07/19 04:00 125 25 125/86 (99) 98 07/07/19 04:00 105 07/07/19 04:00 30 07/07/19 03:39 107 26 100 Mechanical Ventilator 30 111 26 30 07/07/19 03:00 25 115/77 Mechanical Ventilator 30 07/07/19 03:00 112 26 115/77 (90) 100 07/07/19 02:00 98.9 106 1 91/61 (71) 100 07/07/19 02:00 25 126/80 Mechanical Ventilator 30 07/07/19 01:00 20 116/67 Mechanical Ventilator 30 07/07/19 01:00 106 22 91/59 (70) 100 07/07/19 00:00 Mechanical Ventilator 07/07/19 00:00 30 07/07/19 00:00 24 101/65 Mechanical Ventilator 30 07/07/19 00:00 111 07/07/19 00:00 108 25 121/73 (89) 100 07/06/19 23:43 111 28 100 Mechanical Ventilator 30 113 27 30 07/06/19 23:00 111 27 113/72 (86) 100 07/06/19 23:00 26 123/71 Mechanical Ventilator 30 07/06/19 23:00 96/65 07/06/19 22:00 26 149/73 Mechanical Ventilator 30 07/06/19 22:00 99.2 111 27 112/73 (86) 100 07/06/19 21:00 114 27 119/66 (83) 100 07/06/19 20:00 119 07/06/19 20:00 30 07/06/19 20:00 109 27 109/67 (81) 100 07/06/19 20:00 Mechanical Ventilator 07/06/19 19:56 112 28 100 Mechanical Ventilator 30 112 29 30 Micro: Microbiology Date/Time Source Procedure Growth Status 07/05/19 03:25 Blood Blood Culture - Preliminary NO GROWTH AFTER 24 HOURS Resulted 07/05/19 03:16 Blood Blood Culture - Preliminary NO GROWTH AFTER 24 HOURS Resulted Accucheck: 217 Critical Care - Subjective ROS Limited/Unobtainable: No Condition: stable IV Access: central FI02: 30 Vent Support Breath Rate: 26 Vent Support Mode: AC Vent Tidal Volume: 500 Sputum Amount: Small PEEP: 5.0 PIP: 22 Tube Feeding Amount: 35 I&O: Intake and Output 07/06/19 07/07/19 19:00 07:00 Intake Total 570 ml 482 ml Output Total 1015 ml 0 ml Balance -445 ml 482 ml Free Water 150 ml 100 ml IV Total 32 ml Tube Feeding 420 ml 350 ml Output Urine Total 15 ml 0 ml Hemodialysis UF 1000 ml # Bowel Movements 1 1 ET-Tube: 7.5 ET Position: 24 Arturo Mckeon MD July 07, 2019 19:45
[2019-07-07] MEDS: Dyna-Hex 2% Top Sol 2oz TOPIC SCH (20:29)
--- NOTE | 2019-07-07 20:51 | General Progress Note ---
Assessment/Plan Problem List: (1) HTN (hypertension) ICD Codes: I10 - Essential (primary) hypertension SNOMED: 64815047 (2) CASSANDRA (acute kidney injury) ICD Codes: N17.9 - Acute kidney failure, unspecified SNOMED: 8210751, 45763132 (3) Anemia in chronic kidney disease (CKD) ICD Codes: N18.9 - Chronic kidney disease, unspecified; D63.1 - Anemia in chronic kidney disease SNOMED: 571356491 (4) Renal failure ICD Codes: N19 - Unspecified kidney failure SNOMED: 31178574 (5) Respiratory failure requiring intubation ICD Codes: J96.90 - Respiratory failure, unspecified, unspecified whether with hypoxia or hypercapnia; A41.89 - Other specified sepsis SNOMED: 429583969, 742878499 (6) Pneumonia due to COVID-19 virus ICD Codes: U07.1 - COVID-19; J12.89 - Other viral pneumonia SNOMED: 108900300, 725574408 (7) Sepsis due to severe acute respiratory syndrome coronavirus 2 (SARS-CoV-2) ICD Codes: U07.1 - COVID-19; A41.89 - Other specified sepsis SNOMED: 111554884, 993818730 Status: unchanged Assessment/Plan: leukocytosis pna diaylsis per renal sepsis lytes improved afebrile malnutrtion no change] no bleeding no acute events Subjective ROS Limited/Unobtainable: Yes Allergies: Coded Allergies: No Known Allergies (Unverified , 05/28/19) Objective Last 24 Hour Vital Signs Date Time Temp Pulse Resp B/P (MAP) Pulse Ox O2 Delivery O2 Flow Rate FiO2 07/07/19 19:44 115 33 100 Mechanical Ventilator 30 117 33 30 07/07/19 19:00 31 150/86 Mechanical Ventilator 30 07/07/19 19:00 115 31 150/86 (107) 100 07/07/19 18:45 113 21 133/73 (93) 100 07/07/19 18:30 104 25 98/64 (75) 100 07/07/19 18:15 104 26 90/70 (77) 100 07/07/19 18:00 113 22 106/70 (82) 100 07/07/19 18:00 26 106/70 Mechanical Ventilator 30 07/07/19 17:45 109 20 130/85 (100) 100 07/07/19 17:30 103 0 93/72 (79) 100 07/07/19 17:30 20 93/72 Mechanical Ventilator 30 07/07/19 17:15 107 21 145/82 (103) 100 07/07/19 17:00 104 15 101/66 (78) 100 07/07/19 17:00 20 145/82 30 07/07/19 16:45 104 11 89/65 (73) 100 07/07/19 16:30 108 21 128/78 (95) 100 07/07/19 16:15 102 17 118/71 (87) 100 07/07/19 16:00 99.4 106 1 99/65 (76) 100 07/07/19 16:00 Mechanical Ventilator 07/07/19 16:00 20 118/71 Mechanical Ventilator 30 07/07/19 16:00 115 07/07/19 15:45 114 31 126/76 (93) 100 07/07/19 15:30 108 25 127/74 (91) 100 07/07/19 15:15 107 23 114/75 (88) 100 07/07/19 15:10 108 28 100 Mechanical Ventilator 30 108 28 30 07/07/19 15:00 21 139/83 Mechanical Ventilator 30 07/07/19 15:00 100 15 139/83 (101) 100 07/07/19 14:45 101 0 91/66 (74) 100 07/07/19 14:30 107 20 126/78 (94) 100 07/07/19 14:15 107 19 132/72 (92) 100 07/07/19 14:09 34 110/80 30 07/07/19 14:00 105 11 110/80 (90) 100 07/07/19 13:45 106 5 98/63 (75) 100 07/07/19 13:30 109 9 114/79 (91) 100 07/07/19 13:15 120 27 138/82 (100) 100 07/07/19 13:00 107 21 128/79 (95) 100 07/07/19 12:52 108 23 113/69 (84) 100 07/07/19 12:45 111 19 123/74 (90) 100 07/07/19 12:30 114 24 105/76 (86) 100 07/07/19 12:15 116 19 103/68 (80) 100 07/07/19 12:05 30 07/07/19 12:00 122 07/07/19 12:00 30 07/07/19 12:00 99.3 118 22 111/72 (85) 100 07/07/19 12:00 Mechanical Ventilator 07/07/19 11:45 118 29 100 Mechanical Ventilator 30 118 29 30 07/07/19 11:00 110 34 115/78 (90) 100 07/07/19 10:25 100 07/07/19 10:00 110 31 118/71 (87) 100 07/07/19 09:00 116 33 132/73 (92) 100 07/07/19 08:40 30 07/07/19 08:40 111 30 30 07/07/19 08:30 114 23 115/72 (86) 100 07/07/19 08:00 Mechanical Ventilator 07/07/19 08:00 114 07/07/19 08:00 98.7 111 20 96/70 (79) 100 07/07/19 08:00 30 07/07/19 07:10 109 26 100 Mechanical Ventilator 30 109 26 30 07/07/19 07:00 110 33 89/63 (72) 100 07/07/19 06:30 110 24 07/07/19 06:00 34 135/73 Mechanical Ventilator 30 07/07/19 06:00 99.0 113 0 95/63 (74) 100 07/07/19 05:29 24 127/74 Mechanical Ventilator 30 07/07/19 05:00 31 113/75 Mechanical Ventilator 30 07/07/19 05:00 126 33 113/75 (88) 100 07/07/19 04:00 Mechanical Ventilator 07/07/19 04:00 30 125/86 Mechanical Ventilator 30 07/07/19 04:00 125 25 125/86 (99) 98 07/07/19 04:00 105 07/07/19 04:00 30 07/07/19 03:39 107 26 100 Mechanical Ventilator 30 111 26 30 07/07/19 03:00 25 115/77 Mechanical Ventilator 30 07/07/19 03:00 112 26 115/77 (90) 100 07/07/19 02:00 98.9 106 1 91/61 (71) 100 07/07/19 02:00 25 126/80 Mechanical Ventilator 30 07/07/19 01:00 20 116/67 Mechanical Ventilator 30 07/07/19 01:00 106 22 91/59 (70) 100 07/07/19 00:00 Mechanical Ventilator 07/07/19 00:00 30 07/07/19 00:00 24 101/65 Mechanical Ventilator 30 07/07/19 00:00 111 07/07/19 00:00 108 25 121/73 (89) 100 07/06/19 23:43 111 28 100 Mechanical Ventilator 30 113 27 30 07/06/19 23:00 111 27 113/72 (86) 100 07/06/19 23:00 26 123/71 Mechanical Ventilator 30 07/06/19 23:00 96/65 07/06/19 22:00 26 149/73 Mechanical Ventilator 30 07/06/19 22:00 99.2 111 27 112/73 (86) 100 07/06/19 21:00 114 27 119/66 (83) 100 Intake and Output 07/06/19 07/07/19 19:00 07:00 Intake Total 570 ml 482 ml Output Total 1015 ml 0 ml Balance -445 ml 482 ml Free Water 150 ml 100 ml IV Total 32 ml Tube Feeding 420 ml 350 ml Output Urine Total 15 ml 0 ml Hemodialysis UF 1000 ml # Bowel Movements 1 1 Laboratory Tests 07/07/19 03:30: White Blood Count 15.2H, Red Blood Count 3.34L, Hemoglobin 9.7L, Hematocrit 30.7L, Mean Corpuscular Volume 92, Mean Corpuscular Hemoglobin 28.9, Mean Corpuscular Hemoglobin Concent 31.5L, Red Cell Distribution Width 16.6H, Platelet Count 462H, Mean Platelet Volume 6.3L, Neutrophils (%) (Auto) 77.0H, Lymphocytes (%) (Auto) 13.3L, Monocytes (%) (Auto) 6.8, Eosinophils (%) (Auto) 2.0, Basophils (%) (Auto) 0.9, Prothrombin Time 12.1H, Prothromb Time International Ratio 1.1, Activated Partial Thromboplast Time 25, Sodium Level 141, Potassium Level 4.2, Chloride Level 99, Carbon Dioxide Level 28, Anion Gap 14, Blood Urea Nitrogen 56H, Creatinine 8.1H, Estimat Glomerular Filtration Rate 6.7, Glucose Level 215H, Calcium Level 9.7, Phosphorus Level 5.2H, Magnesium Level 2.8H, Total Bilirubin 0.4, Aspartate Amino Transf (AST/SGOT) 34 , Alanine Aminotransferase (ALT/SGPT) 15, Alkaline Phosphatase 107, Total Protein 10.1H, Albumin 3.1L, Globulin 7.0, Albumin/Globulin Ratio 0.4L 07/07/19 09:59: Arterial Blood pH 7.411, Arterial Blood Partial Pressure CO2 42.3, Arterial Blood Partial Pressure O2 107.3H, Arterial Blood HCO3 26.3H, Arterial Blood Oxygen Saturation 97.9, Arterial Blood Base Excess 1.5, Kosta Test Positive Height (Feet): 6 Height (Inches): 1.00 Weight (Pounds): 225 Karishma Mulligan MD July 07, 2019 20:51
[2019-07-07] MEDS: Epoetin Alfa-EPBX(ESRD on dialysis)10,000 unit/ml vial SUBQ SCH (21:30)
[2019-07-07] MEDS: NOREPINEPHRINE BITARTRATE IV SCH ×3 (23:00)
[2019-07-07] MEDS: D5W IV SCH ×3 (23:00)
[2019-07-08] VITALS (53 sets, daily range): BP systolic 76–146; BP diastolic 50–91
[2019-07-08] MEDS: Albuterol 90mcg Inhaler 8gm INH SCH ×6 (02:53→23:00)
[2019-07-08] MEDS: NovoLOG Insulin Flexpen SUBQ SCH ×5 (05:30→23:47)
[2019-07-08] MEDS: Renvela 800mg Pkt NG SCH ×3 (05:30→21:21)
[2019-07-08 05:53] LABS: BASOPHILS % (AUTO) 0.8 % (0.0-2.0); EOSINOPHILS % (AUTO) 2.1 % (0.0-3.0); HEMATOCRIT 30.5 % (42.0-52.0); HEMOGLOBIN 9.5 G/DL (14.2-18.0); LYMPHOCYTES % (AUTO) 12.4 % (20.0-45.0); MEAN CORPUSCULAR VOLUME 92 FL (80-99); NEUTROPHILS % (AUTO) 77.8 % (45.0-75.0); PLATELET COUNT 506 K/UL (150-450); RED BLOOD COUNT 3.33 M/UL (4.70-6.10); RED CELL DISTRIBUTION WIDTH 16.7 % (11.6-14.8); WHITE BLOOD COUNT 16.4 K/UL (4.8-10.8)
[2019-07-08 06:03] LABS: ALANINE AMINOTRANSFERASE 19 U/L (12-78); ALBUMIN/GLOBULIN RATIO 0.4 (1.0-2.7); ALKALINE PHOSPHATASE 98 U/L (46-116); ANION GAP 18 mmol/L (5-15); ASPARTATE AMINO TRANSFERASE 38 U/L (15-37); BILIRUBIN,TOTAL 0.5 MG/DL (0.2-1.0); BLOOD UREA NITROGEN 72 mg/dL (7-18); CALCIUM 9.9 MG/DL (8.5-10.1); CARBON DIOXIDE 27 MMOL/L (21-32); CHLORIDE 100 MMOL/L (98-107); CREATININE 9.9 MG/DL (0.55-1.30); PHOSPHORUS 5.6 MG/DL (2.5-4.9); POTASSIUM 4.3 MMOL/L (3.5-5.1); SODIUM 145 MMOL/L (136-145)
--- NOTE | 2019-07-08 07:34 | Pre-Procedure Note/Attestation ---
Pre-Procedure Note/Attestation Complete Prior to Procedure Planned Procedure: not applicable Procedure Narrative: tracheostomy Indications for Procedure Pre-Operative Diagnosis: COVID + sepsis respiratory insufficiency Attestation I attest that I discussed the nature of the procedure; its benefits; risks and complications; and alternatives (and the risks and benefits of such alternatives ), prior to the procedure, with the patient (or the patient's legal sales representative wire rope). I attest that, if there was a reasonable possibility of needing a blood transfusion, the patient (or the patient's legal sales representative wire rope) was given the [facility] standardized written summary, pursuant to the [place] Blood Safety Act ([place] Health and Safety Code # 1645, as amended). I attest that I re-evaluated the patient just prior to the surgery and that there has been no change in the patient's H&P, except as documented below: Yaniv Mast July 08, 2019 07:34
[2019-07-08] MEDS ORDERED: Lidocaine 1% 10mg/ml/Epi 0.005mg/ml 30ml vial INJ ONE (07:38)
[2019-07-08] MEDS: Pantoprazole Inj IVP SCH (08:27)
[2019-07-08] MEDS: Midodrine 10mg tab NG SCH ×3 (08:28→18:12)
[2019-07-08] MEDS: Enoxaparin 30mg Inj SUBQ SCH (08:28)
[2019-07-08] MEDS ORDERED: NS Irrig 1000ml ONE (09:00)
[2019-07-08] MEDS ORDERED: Sterile Water Irrig 1000ml IRRIG ONE (09:00)
[2019-07-08] MEDS ORDERED: Rocuronium Bromide 100mg/10ml Inj IV ONE (09:00)
--- NOTE | 2019-07-08 09:46 | Brief Operative Note ---
Immediate Post Operative Note Operative Note Pre-op Diagnosis: COVID + sepsis respiratory insufficiency Procedure: tracheostomy Post-op Diagnosis: same as pre-op Surgeon: niyah Additional Surgeons: charles swan Anesthesia: general, local Specimen: none Complications: none Condition: stable Fluids: see records Drains: none Implant(s) used?: No Yaniv Mast July 08, 2019 09:46
[2019-07-08] MEDS: fentaNYL 2500mcg/NS 250ml IV SCH (10:00)
--- NOTE | 2019-07-08 10:08 | Anethesia Preoperative Eval ---
Anesthesia Pre-op PMH/ROS General Date of Evaluation: July 08, 2019 Time of Evaluation: 09:08 Anesthesiologist: Redd ASA Score: ASA 4 Mallampati Score Class I : Soft palate, uvula, fauces, pillars visible Class II: Soft palate, uvula, fauces visible Class III: Soft palate, base of uvula visible Class IV: Only hard plate visible Mallampati Classification: Class III Surgeon: Pro Diagnosis: Vent Failure, SARS 2 Covid Surgical Procedure: Tracheostomy Anesthesia History: none Family History: no anesthesia problems Allergies: Coded Allergies: No Known Allergies (Unverified , 05/28/19) Medications: see eMAR Patient NPO?: Yes Past Medical History Cardiovascular: Reports: HTN Pulmonary: Reports: COPD Gastrointestinal/Genitourinary: Reports: CRI, other - BPH, Hepatitis C Neurologic/Psychiatric: Reports: dementia, other - Schizophrenia Endocrine: Reports: DM HEENT: Reports: [place] (L), [place] (R) Hematology/Immune: Reports: anemia Musculoskeletal/Integumentary: Reports: other - Weakness Anesthesia Pre-op Phys. Exam Physician Exam Last Vital Signs Date Time Temp Pulse Resp B/P (MAP) Pulse Ox O2 Delivery O2 Flow Rate FiO2 07/08/19 07:19 104 26 100 Mechanical Ventilator 30 102 26 30 07/08/19 07:00 118/81 (93) 07/08/19 04:00 98.1 Constitutional: NAD Neurologic: CN 2-12 intact Cardiovascular: RRR Respiratory: CTA Gastrointestinal: S/NT/ND Airway Exam Mallampati Score: Class III MO: limited Neck: Intubated ROM: limited Teeth: missing Anesthesia Pre-op A/P Labs Hematology Test 07/08/19 04:44 White Blood Count 16.4 K/UL (4.8-10.8) H Red Blood Count 3.33 M/UL (4.70-6.10) L Hemoglobin 9.5 G/DL (14.2-18.0) L Hematocrit 30.5 % (42.0-52.0) L Mean Corpuscular Volume 92 FL (80-99) Mean Corpuscular Hemoglobin 28.6 PG (27.0-31.0) Mean Corpuscular Hemoglobin Concent 31.2 G/DL (32.0-36.0) L Red Cell Distribution Width 16.7 % (11.6-14.8) H Platelet Count 506 K/UL (150-450) H Mean Platelet Volume 6.0 FL (6.5-10.1) L Neutrophils (%) (Auto) 77.8 % (45.0-75.0) H Lymphocytes (%) (Auto) 12.4 % (20.0-45.0) L Monocytes (%) (Auto) 7.0 % (1.0-10.0) Eosinophils (%) (Auto) 2.1 % (0.0-3.0) Basophils (%) (Auto) 0.8 % (0.0-2.0) Chemistry Test 07/08/19 04:44 Sodium Level 145 MMOL/L (136-145) Potassium Level 4.3 MMOL/L (3.5-5.1) Chloride Level 100 MMOL/L (98-107) Carbon Dioxide Level 27 MMOL/L (21-32) Anion Gap 18 mmol/L (5-15) H Blood Urea Nitrogen 72 mg/dL (7-18) H Creatinine 9.9 MG/DL (0.55-1.30) H Estimat Glomerular Filtration Rate 5.3 mL/min (>60) Glucose Level 188 MG/DL (74-106) H Calcium Level 9.9 MG/DL (8.5-10.1) Phosphorus Level 5.6 MG/DL (2.5-4.9) H Magnesium Level 2.9 MG/DL (1.8-2.4) H Total Bilirubin 0.5 MG/DL (0.2-1.0) Aspartate Amino Transf (AST/SGOT) 38 U/L (15-37) H Alanine Aminotransferase (ALT/SGPT) 19 U/L (12-78) Alkaline Phosphatase 98 U/L (46-116) C-Reactive Protein, Quantitative 7.2 mg/dL (0.00-0.90) H Pro-B-Type Natriuretic Peptide 54755 pg/mL (0-125) H Total Protein 10.0 G/DL (6.4-8.2) H Albumin 3.0 G/DL (3.4-5.0) L Globulin 7.0 g/dL Albumin/Globulin Ratio 0.4 (1.0-2.7) L Risk Assessment & Plan Assessment: ASA 4 Plan: GA Status Change Before Surgery: No Terrlel Rainey MD July 08, 2019 10:08
--- NOTE | 2019-07-08 10:10 | Immediate Post-Op Evaluation ---
Immediate Post-Op Evalulation Immediate Post-Op Evalulation Procedure: Tracheostomy Date of Evaluation: July 08, 2019 Time of Evaluation: 10:17 IV Fluids: 10 CC NS Blood Products: 0 Estimated Blood Loss: 3 Urinary Output: 0 Blood Pressure Systolic: 153 Blood Pressure Diastolic: 107 Pulse Rate: 130 Respiratory Rate: 15 - Mech Vent O2 Sat by Pulse Oximetry: 100 Temperature (Fahrenheit): 98 Pain Score (1-10): 0 Nausea: No Vomiting: No Complications 0 Patient Status: no response, patent, ventilated, none Hydration Status: adequate Terrell Rainey MD July 08, 2019 10:10
--- NOTE | 2019-07-08 10:11 | 48 Hour Post Anesthesia Eval ---
Post Anesthesia Evaluation Procedure: Tracheostomy Date of Evaluation: July 08, 2019 Time of Evaluation: 12:31 Blood Pressure Systolic: 123 0: 81 Pulse Rate: 128 Respiratory Rate: 15 - Mech Vent Temperature (Fahrenheit): 98 O2 Sat by Pulse Oximetry: 100 Airway: patent Nausea: No Vomiting: No Pain Intensity: 0 Hydration Status: adequate Cardiopulmonary Status: Stable Mental Status/LOC: patient returned to baseline Follow-up Care/Observations: 0 Post-Anesthesia Complications: 0 Follow-up care needed: N/A Terrell Rainey MD July 08, 2019 10:11
--- NOTE | 2019-07-08 10:24 | Infectious Diseases Prog Note ---
Assessment/Plan Assessment/Plan IMPRESSION: 1. COVID19 pneumonia Positive: 05/27, 05/31 , 06/05, 06/09 ,06/17, 06/19, 06/23, 06/27 2. MRSA carrier. 3. Chronic kidney disease , end-stage renal disease. 4. COPD. 5. Hypertension. 6. Anemia. 7. Hypothyroidism. 8. Hyperlipidemia. 9. Major depression. 10. Leukocytosis 11. Hypotension 12. Hepatitis C 13. Hyperuricemia 14. Diarrhea 15. septic shock resolved 16. Leukocytosis 17. Bacteremia with Staph epidermidis Subsequent cultures negative RECOMMENDATIONS: PermCath placement after tracheostomy Case was D/W surgeon Continue Vancomycin Finished hydroxychloroquine. Will f/u COVID19 test Case was D/W RN Subjective ROS Limited/Unobtainable: Yes Respiratory: Reports: other - had tracheostomy today Allergies: Coded Allergies: No Known Allergies (Unverified , 05/28/19) Objective Vital Signs Last 24 Hour Vital Signs Date Time Temp Pulse Resp B/P (MAP) Pulse Ox O2 Delivery O2 Flow Rate FiO2 07/08/19 10:11 128 15 100 07/08/19 10:10 130 15 100 07/08/19 10:00 99.8 143 120/78 (92) 07/08/19 10:00 Mechanical Ventilator 07/08/19 09:02 100 21 84/60 (68) 100 07/08/19 09:00 100 20 88/60 (69) 100 07/08/19 08:30 98 21 105/59 (74) 100 07/08/19 08:00 99.5 101 19 85/59 (68) 100 07/08/19 08:00 Mechanical Ventilator 07/08/19 07:30 104 23 117/85 (96) 100 07/08/19 07:19 104 26 100 Mechanical Ventilator 30 102 26 30 07/08/19 07:00 104 17 118/81 (93) 100 07/08/19 07:00 17 118/81 Mechanical Ventilator 30 07/08/19 06:30 100 26 85/61 (69) 100 07/08/19 06:30 100 26 07/08/19 06:00 26 131/76 Mechanical Ventilator 30 07/08/19 06:00 101 26 131/76 (94) 100 07/08/19 05:30 97 26 95/62 (73) 100 07/08/19 05:00 25 82/56 Mechanical Ventilator 30 07/08/19 05:00 101 25 82/56 (65) 100 07/08/19 04:30 104 26 84/55 (65) 100 07/08/19 04:15 110 27 103/63 (76) 100 07/08/19 04:00 Mechanical Ventilator 07/08/19 04:00 30 07/08/19 04:00 26 105/68 Mechanical Ventilator 30 07/08/19 04:00 98.1 108 19 105/68 (80) 100 07/08/19 03:57 108 07/08/19 03:45 107 21 129/81 (97) 100 07/08/19 03:30 103 22 80/52 (61) 100 07/08/19 03:00 16 107/72 Mechanical Ventilator 30 07/08/19 03:00 99 16 107/72 (84) 100 07/08/19 02:53 98 26 100 Mechanical Ventilator 30 96 26 30 07/08/19 02:30 94 22 85/50 (62) 100 07/08/19 02:00 26 91/26 Mechanical Ventilator 30 07/08/19 02:00 93 26 91/62 (72) 100 07/08/19 01:30 93 26 88/56 (67) 100 07/08/19 01:00 102 26 121/77 (92) 100 07/08/19 01:00 26 121/77 Mechanical Ventilator 30 07/08/19 00:40 94 26 106/64 (78) 100 07/08/19 00:30 97 26 76/55 (62) 100 07/08/19 00:16 96 26 84/55 (65) 100 07/08/19 00:00 94 07/08/19 00:00 26 110/73 Mechanical Ventilator 30 07/08/19 00:00 30 07/08/19 00:00 Mechanical Ventilator 07/08/19 00:00 98.6 94 26 110/73 (85) 100 07/07/19 23:45 92 26 89/59 (69) 100 07/07/19 23:41 92 26 85/56 (66) 100 07/07/19 23:34 96 26 77/56 (63) 100 07/07/19 23:30 99 26 84/57 (66) 100 5/27/20 23:15 98 26 130/75 (93) 100 07/07/19 23:00 100 26 98/57 (71) 100 07/07/19 23:00 26 98/57 Mechanical Ventilator 30 07/07/19 23:00 98/57 07/07/19 22:00 26 98/57 Mechanical Ventilator 30 07/07/19 22:00 98 26 81/57 (65) 100 07/07/19 21:46 91 26 100 Mechanical Ventilator 30 90 26 30 07/07/19 21:45 90 26 98/74 (82) 100 07/07/19 21:30 84 26 96/64 (75) 100 07/07/19 21:00 90 19 102/62 (75) 100 07/07/19 21:00 19 102/62 Mechanical Ventilator 30 07/07/19 20:30 97 12 103/56 (72) 100 07/07/19 20:00 30 07/07/19 20:00 98.8 110 29 128/83 (98) 100 07/07/19 20:00 Mechanical Ventilator 07/07/19 20:00 29 128/83 Mechanical Ventilator 30 07/07/19 19:44 115 33 100 Mechanical Ventilator 30 117 33 30 07/07/19 19:30 115 07/07/19 19:00 31 150/86 Mechanical Ventilator 30 07/07/19 19:00 115 31 150/86 (107) 100 07/07/19 18:45 113 21 133/73 (93) 100 07/07/19 18:30 104 25 98/64 (75) 100 07/07/19 18:15 104 26 90/70 (77) 100 07/07/19 18:00 113 22 106/70 (82) 100 07/07/19 18:00 26 106/70 Mechanical Ventilator 30 07/07/19 17:45 109 20 130/85 (100) 100 07/07/19 17:30 103 0 93/72 (79) 100 07/07/19 17:30 20 93/72 Mechanical Ventilator 30 07/07/19 17:15 107 21 145/82 (103) 100 07/07/19 17:00 104 15 101/66 (78) 100 07/07/19 17:00 20 145/82 30 07/07/19 16:45 104 11 89/65 (73) 100 5/27/20 16:30 108 21 128/78 (95) 100 07/07/19 16:15 102 17 118/71 (87) 100 07/07/19 16:00 99.4 106 1 99/65 (76) 100 07/07/19 16:00 Mechanical Ventilator 07/07/19 16:00 20 118/71 Mechanical Ventilator 30 07/07/19 16:00 115 07/07/19 15:45 114 31 126/76 (93) 100 07/07/19 15:30 108 25 127/74 (91) 100 07/07/19 15:15 107 23 114/75 (88) 100 07/07/19 15:10 108 28 100 Mechanical Ventilator 30 108 28 30 07/07/19 15:00 21 139/83 Mechanical Ventilator 30 07/07/19 15:00 100 15 139/83 (101) 100 07/07/19 14:45 101 0 91/66 (74) 100 07/07/19 14:30 107 20 126/78 (94) 100 07/07/19 14:15 107 19 132/72 (92) 100 07/07/19 14:09 34 110/80 30 07/07/19 14:00 105 11 110/80 (90) 100 07/07/19 13:45 106 5 98/63 (75) 100 07/07/19 13:30 109 9 114/79 (91) 100 07/07/19 13:15 120 27 138/82 (100) 100 07/07/19 13:00 107 21 128/79 (95) 100 07/07/19 12:52 108 23 113/69 (84) 100 07/07/19 12:45 111 19 123/74 (90) 100 07/07/19 12:30 114 24 105/76 (86) 100 07/07/19 12:15 116 19 103/68 (80) 100 07/07/19 12:05 30 07/07/19 12:00 122 07/07/19 12:00 30 07/07/19 12:00 99.3 118 22 111/72 (85) 100 07/07/19 12:00 Mechanical Ventilator 07/07/19 11:45 118 29 100 Mechanical Ventilator 30 118 29 30 07/07/19 11:00 110 34 115/78 (90) 100 07/07/19 10:25 100 Height (Feet): 6 Height (Inches): 1.00 Weight (Pounds): 161 HEENT: status post trach Respiratory/Chest: other - on ventilatir Cardiovascular: tachycardia, other - Central line & HD catheter Abdomen: soft, non tender Extremities: no edema Neurologic/Psychiatric: disoriented Laboratory Tests Test 07/08/19 04:44 White Blood Count 16.4 K/UL (4.8-10.8) H Red Blood Count 3.33 M/UL (4.70-6.10) L Hemoglobin 9.5 G/DL (14.2-18.0) L Hematocrit 30.5 % (42.0-52.0) L Mean Corpuscular Volume 92 FL (80-99) Mean Corpuscular Hemoglobin 28.6 PG (27.0-31.0) Mean Corpuscular Hemoglobin Concent 31.2 G/DL (32.0-36.0) L Red Cell Distribution Width 16.7 % (11.6-14.8) H Platelet Count 506 K/UL (150-450) H Mean Platelet Volume 6.0 FL (6.5-10.1) L Neutrophils (%) (Auto) 77.8 % (45.0-75.0) H Lymphocytes (%) (Auto) 12.4 % (20.0-45.0) L Monocytes (%) (Auto) 7.0 % (1.0-10.0) Eosinophils (%) (Auto) 2.1 % (0.0-3.0) Basophils (%) (Auto) 0.8 % (0.0-2.0) Sodium Level 145 MMOL/L (136-145) Potassium Level 4.3 MMOL/L (3.5-5.1) Chloride Level 100 MMOL/L (98-107) Carbon Dioxide Level 27 MMOL/L (21-32) Anion Gap 18 mmol/L (5-15) H Blood Urea Nitrogen 72 mg/dL (7-18) H Creatinine 9.9 MG/DL (0.55-1.30) H Estimat Glomerular Filtration Rate 5.3 mL/min (>60) Glucose Level 188 MG/DL (74-106) H Calcium Level 9.9 MG/DL (8.5-10.1) Phosphorus Level 5.6 MG/DL (2.5-4.9) H Magnesium Level 2.9 MG/DL (1.8-2.4) H Total Bilirubin 0.5 MG/DL (0.2-1.0) Aspartate Amino Transf (AST/SGOT) 38 U/L (15-37) H Alanine Aminotransferase (ALT/SGPT) 19 U/L (12-78) Alkaline Phosphatase 98 U/L (46-116) C-Reactive Protein, Quantitative 7.2 mg/dL (0.00-0.90) H Pro-B-Type Natriuretic Peptide 77005 pg/mL (0-125) H Total Protein 10.0 G/DL (6.4-8.2) H Albumin 3.0 G/DL (3.4-5.0) L Globulin 7.0 g/dL Albumin/Globulin Ratio 0.4 (1.0-2.7) L Current Medications Medications (Trade) Dose Ordered Sig/Anthony Route PRN Reason Start Time Stop Time Status Last Admin Dose Admin Acetaminophen (Tylenol) 650 mg Q4H PRN NG Temp >100.5 06/13/19 11:00 07/13/19 10:59 07/05/19 08:15 Albuterol Sulfate (Proventil MDI) 2 puff Q4HRT INH 06/06/19 23:00 08/30/19 18:59 07/08/19 02:53 Chlorhexidine Gluconate (Michelle-Hex 2%) 1 applic DAILY@2000 TOPIC 06/07/19 20:00 09/05/19 19:59 07/07/19 20:29 Dextrose (Dextrose 50%) 25 ml Q30M PRN IV Hypoglycemia 06/20/19 19:30 09/18/19 19:29 Dextrose (Dextrose 50%) 50 ml Q30M PRN IV Hypoglycemia 06/20/19 19:30 09/18/19 19:29 Dopamine HCl/ Dextrose 250 ml @ 0 mls/hr Q24H PRN IV For hypotension 06/13/19 08:15 09/11/19 08:14 Enoxaparin Sodium (Lovenox) 30 mg DAILY SUBQ 06/07/19 09:00 08/27/19 08:59 07/07/19 08:15 Epoetin Aftab (Epoetin Aftab(ESRD on dialysis)) 10,000 unit FRI-WED-FRI SUBQ 06/07/19 21:00 08/31/19 20:59 07/07/19 21:30 Fentanyl Citrate 250 ml @ 0 mls/hr Q24H IV 06/24/19 06:00 09/22/19 05:59 07/07/19 14:09 Hydralazine HCl (Apresoline) 10 mg Q4H PRN IV Blood pressure over 160 systol 06/07/19 10:15 09/05/19 10:14 Insulin Aspart (NovoLOG) EVERY 6 HOURS SUBQ 06/21/19 00:00 09/19/19 00:00 07/08/19 00:00 Metoclopramide HCl (Reglan) 5 mg Q8H PRN IVP Nausea & Vomiting 06/18/19 12:00 07/18/19 11:59 06/19/19 00:50 Midodrine (Pro-Amatine) 10 mg THREE TIMES A DAY NG 06/09/19 13:00 09/07/19 12:59 07/08/19 08:28 Norepinephrine Bitartrate 8 mg/ Dextrose 283 ml @ 0 mls/hr Q24H IV 06/23/19 23:00 07/23/19 22:59 06/25/19 14:38 Pantoprazole (Protonix) 40 mg DAILY IVP 06/19/19 09:00 07/19/19 08:59 07/08/19 08:27 Sevelamer Carbonate (Renvela) 1,600 mg Q8HR NG 06/25/19 22:00 09/05/19 12:59 07/07/19 21:31 Vancomycin HCl (Vanco rx to dose) 1 ea DAILY PRN MISC Per rx protocol 07/01/19 11:00 07/31/19 10:59 Ted Leyva MD July 08, 2019 10:24
--- NOTE | 2019-07-08 10:31 | Nephrology Progress Note ---
Assessment/Plan Problem List: (1) CASSANDRA (acute kidney injury) (2) Anemia in chronic kidney disease (CKD) (3) HTN (hypertension) (4) COVID-19 Assessment Acute renal failure most likely superimposed on chronic kidney disease Suspected COVID-19 virus infection Possible Pneumonia, lymphopenia, elevated AST Cardiomegaly, possible CHF COPD Hypertension Anemia, most likely related to chronic kidney disease Plan July 07: Patient is due for tracheostomy today. Patient was last dialyzed July 05. Will order dialysis for tomorrow. July 06: Patient is intubated on ventilator however the plan is to extubate today. Patient was dialysis yesterday July 05. The dialysis time was cut short due to patient's respiratory distress. Only 1 L was removed during dialysis yesterday. Today's lab reviewed. Continue per consultants. Will arrange for dialysis as needed. July 05: Patient due for dialysis today. Remains intubated. Will schedule permacath placement in a.m. blood cultures on July 04 are negative. July 04: Patient was dialyzed yesterday. Due for dialysis tomorrow. Continues to be intubated. After tomorrow's dialysis will order a permacath. July 03: Dialysis is about to be started now Continues to be intubated Will plan to remove the femoral dialysis catheter and exchanged for a new temporary catheter per ID recommendation We will check surveillance blood culture tomorrow July 02: Patient was dialyzed yesterday and due for dialysis tomorrow Stable from renal standpoint W on dialysis Continue per consultants, weaning....... etc. July 01: Dialysis today Other status unchanged June 30: Due for dialysis tomorrow Remains intubated on ventilator Labs and medication reviewed Discussed with SHANIQUE Max from renal standpoint of view June 29: Dialyzed yesterday Due for dialysis tomorrow Stable from renal standpoint to view Keeps failing weaning process June 28: Patient due for dialysis today Stable from renal standpoint to view Continue per consultants June 27: Labs reviewed Due due for dialysis June 28 Discussed with SHANIQUE Dick Continue per consultants Remains intubated on ventilator June 26 Labs reviewed Dialyzed yesterday Started on weaning today Continue to monitor renal parameters June 16: On dialysis now Potassium supplement implemented Continue per consultants Next dialysis June 27June 15: Status unchanged Dialyzed yesterday will dialyze again tomorrow Potassium supplements given Discussed with RN June 14: Due dialysis today Status: Remains intubated on ventilator June 22: Status unchanged Dialyzed yesterday and duefordialysistomorrow Serum sodium stable today June 21 Remains intubated on ventilator Due dialysis today Emphasized high sodium bath for dialysis June 20: Remains intubated on ventilator Dialyzed June 19 next dialysis June 21 Serum sodium 128, will give 250 cc 3% saline Remains full code Discussed with RN Iron panel ordered June 19: Discussed with RN. Patient due for dialysis today. Continue pulmonary support. Remains full code. June 18: Patient dialyzed yesterday June 17 Serum sodium improved but still low Arrange for dialysis tomorrow June 19 Continue per consultants June 17: Due for dialysis today Today's lab reviewed, low serum sodium noted, Emphasized on high sodium bath to dialysis nurse Discussed with SHANIQUE Yuen June 16: Dialyzed yesterday Remains intubated Labs reviewed, serum sodium 131 Plan to dialyze tomorrow June 17 with high sodium bath Discussed with SHANIQUE Yuen June 15: Due for dialysis today Labs reviewed Discussed with RN Transfuse 1 unit of packed RBCs today for low hemoglobin of 7.1 June 5: Blood pressure well maintained Receive dialysis June 13 next hemodialysis June 15June 4: Discussed with RN in ICU Patient did not receive proper dialysis yesterday due to dialysis catheter malfunction Catheter to be adjusted today and dialyzed to be resumed today Continue per consultants Positive for COVID 28 June 2: Patient now intubated on mechanical ventilation Discussed with SHANIQUE Yuen, today June 12 Patient received dialysis yesterday June 10 next hemodialysis June 12 Blood pressure better maintained Today's labs reviewed Continue per consultants Previously patient received dialysis last evening June 05, next dialysis June 07 which was incomplete due to patient's hypotension Will start on midodrine for blood pressure support. Meanwhile continue other pressors as needed Previously Patient is doing poorly, septic, white blood cells are rising, Hypotension somewhat improved We will keep n.p.o. , NG tube for medications, and change medication to IV as needed Patient remains full code Monitor vancomycin level Previously: Patient pulled out his femoral catheter yesterday June 03 which was reinserted by Dr. Mast Patient scheduled for dialysis again June 04, which again was not done due to dialysis nurse citing catheter malfunction Meanwhile continue management per ID, pulmonary , and psych. Meanwhile white blood cell count is rising. Patient blood pressure borderline low. Will check ABG Previously May 31 : I believe patient need dialysis treatment He however needs to competency assessment if can make decisions or not I will communicate with Dr. Mulligan Previously: Per pulmonary and ID advice Adjust blood pressure medication Renal diet Anemia work-up 2D echocardiogram refused Kidney ultrasound refused Jules catheter Urine studies Per orders Subjective ROS Limited/Unobtainable: Yes Objective Objective Last 24 Hour Vital Signs Date Time Temp Pulse Resp B/P (MAP) Pulse Ox O2 Delivery O2 Flow Rate FiO2 07/08/19 10:11 128 15 100 07/08/19 10:10 130 15 100 07/08/19 10:00 99.8 143 120/78 (92) 07/08/19 10:00 30 07/08/19 10:00 Mechanical Ventilator 07/08/19 09:02 100 21 84/60 (68) 100 07/08/19 09:00 100 20 88/60 (69) 100 07/08/19 08:30 98 21 105/59 (74) 100 07/08/19 08:00 30 07/08/19 08:00 99.5 101 19 85/59 (68) 100 07/08/19 08:00 Mechanical Ventilator 07/08/19 07:30 104 23 117/85 (96) 100 07/08/19 07:19 104 26 100 Mechanical Ventilator 30 102 26 30 07/08/19 07:00 104 17 118/81 (93) 100 07/08/19 07:00 17 118/81 Mechanical Ventilator 30 07/08/19 06:30 100 26 85/61 (69) 100 07/08/19 06:30 100 26 07/08/19 06:00 26 131/76 Mechanical Ventilator 30 07/08/19 06:00 101 26 131/76 (94) 100 07/08/19 05:30 97 26 95/62 (73) 100 07/08/19 05:00 25 82/56 Mechanical Ventilator 30 07/08/19 05:00 101 25 82/56 (65) 100 07/08/19 04:30 104 26 84/55 (65) 100 07/08/19 04:15 110 27 103/63 (76) 100 07/08/19 04:00 Mechanical Ventilator 07/08/19 04:00 30 07/08/19 04:00 26 105/68 Mechanical Ventilator 30 07/08/19 04:00 98.1 108 19 105/68 (80) 100 07/08/19 03:57 108 07/08/19 03:45 107 21 129/81 (97) 100 07/08/19 03:30 103 22 80/52 (61) 100 07/08/19 03:00 16 107/72 Mechanical Ventilator 30 07/08/19 03:00 99 16 107/72 (84) 100 07/08/19 02:53 98 26 100 Mechanical Ventilator 30 96 26 30 07/08/19 02:30 94 22 85/50 (62) 100 07/08/19 02:00 26 91/26 Mechanical Ventilator 30 07/08/19 02:00 93 26 91/62 (72) 100 07/08/19 01:30 93 26 88/56 (67) 100 07/08/19 01:00 102 26 121/77 (92) 100 07/08/19 01:00 26 121/77 Mechanical Ventilator 30 07/08/19 00:40 94 26 106/64 (78) 100 07/08/19 00:30 97 26 76/55 (62) 100 07/08/19 00:16 96 26 84/55 (65) 100 07/08/19 00:00 94 07/08/19 00:00 26 110/73 Mechanical Ventilator 30 07/08/19 00:00 30 07/08/19 00:00 Mechanical Ventilator 07/08/19 00:00 98.6 94 26 110/73 (85) 100 07/07/19 23:45 92 26 89/59 (69) 100 07/07/19 23:41 92 26 85/56 (66) 100 07/07/19 23:34 96 26 77/56 (63) 100 07/07/19 23:30 99 26 84/57 (66) 100 07/07/19 23:15 98 26 130/75 (93) 100 07/07/19 23:00 100 26 98/57 (71) 100 07/07/19 23:00 26 98/57 Mechanical Ventilator 30 07/07/19 23:00 98/57 07/07/19 22:00 26 98/57 Mechanical Ventilator 30 07/07/19 22:00 98 26 81/57 (65) 100 07/07/19 21:46 91 26 100 Mechanical Ventilator 30 90 26 30 07/07/19 21:45 90 26 98/74 (82) 100 07/07/19 21:30 84 26 96/64 (75) 100 07/07/19 21:00 90 19 102/62 (75) 100 07/07/19 21:00 19 102/62 Mechanical Ventilator 30 07/07/19 20:30 97 12 103/56 (72) 100 07/07/19 20:00 30 07/07/19 20:00 98.8 110 29 128/83 (98) 100 07/07/19 20:00 Mechanical Ventilator 07/07/19 20:00 29 128/83 Mechanical Ventilator 30 07/07/19 19:44 115 33 100 Mechanical Ventilator 30 117 33 30 07/07/19 19:30 115 07/07/19 19:00 31 150/86 Mechanical Ventilator 30 07/07/19 19:00 115 31 150/86 (107) 100 07/07/19 18:45 113 21 133/73 (93) 100 07/07/19 18:30 104 25 98/64 (75) 100 07/07/19 18:15 104 26 90/70 (77) 100 07/07/19 18:00 113 22 106/70 (82) 100 07/07/19 18:00 26 106/70 Mechanical Ventilator 30 07/07/19 17:45 109 20 130/85 (100) 100 07/07/19 17:30 103 0 93/72 (79) 100 07/07/19 17:30 20 93/72 Mechanical Ventilator 30 07/07/19 17:15 107 21 145/82 (103) 100 07/07/19 17:00 104 15 101/66 (78) 100 07/07/19 17:00 20 145/82 30 07/07/19 16:45 104 11 89/65 (73) 100 07/07/19 16:30 108 21 128/78 (95) 100 07/07/19 16:15 102 17 118/71 (87) 100 07/07/19 16:00 99.4 106 1 99/65 (76) 100 07/07/19 16:00 Mechanical Ventilator 07/07/19 16:00 20 118/71 Mechanical Ventilator 30 07/07/19 16:00 115 07/07/19 15:45 114 31 126/76 (93) 100 07/07/19 15:30 108 25 127/74 (91) 100 07/07/19 15:15 107 23 114/75 (88) 100 07/07/19 15:10 108 28 100 Mechanical Ventilator 30 108 28 30 07/07/19 15:00 21 139/83 Mechanical Ventilator 30 07/07/19 15:00 100 15 139/83 (101) 100 07/07/19 14:45 101 0 91/66 (74) 100 07/07/19 14:30 107 20 126/78 (94) 100 07/07/19 14:15 107 19 132/72 (92) 100 07/07/19 14:09 34 110/80 30 07/07/19 14:00 105 11 110/80 (90) 100 07/07/19 13:45 106 5 98/63 (75) 100 07/07/19 13:30 109 9 114/79 (91) 100 07/07/19 13:15 120 27 138/82 (100) 100 07/07/19 13:00 107 21 128/79 (95) 100 07/07/19 12:52 108 23 113/69 (84) 100 07/07/19 12:45 111 19 123/74 (90) 100 07/07/19 12:30 114 24 105/76 (86) 100 07/07/19 12:15 116 19 103/68 (80) 100 07/07/19 12:05 30 07/07/19 12:00 122 07/07/19 12:00 30 07/07/19 12:00 99.3 118 22 111/72 (85) 100 07/07/19 12:00 Mechanical Ventilator 07/07/19 11:45 118 29 100 Mechanical Ventilator 30 118 29 30 07/07/19 11:00 110 34 115/78 (90) 100 Intake and Output 07/07/19 07/08/19 19:00 07:00 Intake Total 316.35 ml 302 ml Output Total 5 ml 5 ml Balance 311.35 ml 297 ml Free Water 20 ml IV Total 16.35 ml 77 ml Tube Feeding 280 ml 175 ml Other 50 ml Output Urine Total 5 ml 5 ml # Bowel Movements 3 2 Laboratory Tests 07/08/19 04:44: White Blood Count 16.4H, Red Blood Count 3.33L, Hemoglobin 9.5L, Hematocrit 30.5L, Mean Corpuscular Volume 92, Mean Corpuscular Hemoglobin 28.6, Mean Corpuscular Hemoglobin Concent 31.2L, Red Cell Distribution Width 16.7H, Platelet Count 506H, Mean Platelet Volume 6.0L, Neutrophils (%) (Auto) 77.8H, Lymphocytes (%) (Auto) 12.4L, Monocytes (%) (Auto) 7.0, Eosinophils (%) (Auto) 2.1, Basophils (%) (Auto) 0.8, Sodium Level 145, Potassium Level 4.3, Chloride Level 100, Carbon Dioxide Level 27, Anion Gap 18H, Blood Urea Nitrogen 72H, Creatinine 9.9H, Estimat Glomerular Filtration Rate 5.3, Glucose Level 188H, Calcium Level 9.9, Phosphorus Level 5.6H, Magnesium Level 2.9H, Total Bilirubin 0.5, Aspartate Amino Transf (AST/SGOT) 38H, Alanine Aminotransferase (ALT/SGPT) 19, Alkaline Phosphatase 98, C-Reactive Protein, Quantitative 7.2H, Pro-B-Type Natriuretic Peptide 12641P, Total Protein 10.0H, Albumin 3.0L, Globulin 7.0, Albumin/Globulin Ratio 0.4L Height (Feet): 6 Height (Inches): 1.00 Weight (Pounds): 161 General Appearance: no apparent distress EENT: other - Patient intubated on ventilator due for tracheostomy today Cardiovascular: tachycardia Respiratory/Chest: decreased breath sounds Abdomen: distended Objective No change Mic Cole MD July 08, 2019 10:31
--- NOTE | 2019-07-08 15:27 | Diagnostic Imaging Report ---
Procedure: XRAY Chest 1v Reason for study: Shortness of breath. Comparison films: 07/01/2019. FINDINGS: Endotracheal tube has been exchanged for a tracheostomy. NG tube and left central venous catheter remain in place. Vascularity is normal. There is mild hazy right mid lung infiltrate. Cardiac and mediastinal silhouette are within normal limits. CP angles are sharp. The bony thorax appear unremarkable. IMPRESSION: Endotracheal tube exchange for new tracheostomy in good position. Mild patchy right mid lung infiltrate.
--- NOTE | 2019-07-08 15:57 | Cardiac Electrophysiology PN ---
Assessment/Plan Assessment/Plan 1. Elevated troponin. Low level and flat due to renal failure. On Aspirin. EF 60 %. 2. S/P Septic shock. Off Levo 3. ESRD, on HD per Dr. Cole. 4. COVID-19 positive pneumonia. On the Vent with 30% Fio2. Fu by Dr. Mckeon. S/P Tracheostomy 07/08/19 5. MRSA carrier. 6. COPD. 7. Anemia. 8. Depression. DW RN Subjective Subjective Covid positive x 3 in isolation in ICU, on 30% Fio2, PEEP 5. Off pressors. RN at bedside. S/P Tracheostomy today. Planned for PEG in am Objective Last 24 Hour Vital Signs Date Time Temp Pulse Resp B/P (MAP) Pulse Ox O2 Delivery O2 Flow Rate FiO2 07/08/19 15:30 112 26 116/79 (91) 100 07/08/19 15:01 113 27 100 Mechanical Ventilator 30 115 26 30 07/08/19 15:00 112 26 86/66 (73) 95 07/08/19 14:00 119 26 121/76 (91) 98 07/08/19 14:00 26 121/76 Mechanical Ventilator 30 07/08/19 13:30 114 15 83/58 (66) 98 07/08/19 13:00 119 26 81/58 (66) 96 07/08/19 13:00 26 101/84 Mechanical Ventilator 30 07/08/19 12:30 99.3 139 18 128/84 (99) 98 07/08/19 12:00 Mechanical Ventilator 07/08/19 12:00 138 31 116/91 (99) 91 07/08/19 12:00 129 07/08/19 12:00 36 116/91 Mechanical Ventilator 30 07/08/19 12:00 30 07/08/19 11:30 142 51 141/89 (106) 93 07/08/19 11:03 123 26 100 Mechanical Ventilator 30 115 26 30 07/08/19 11:00 126 29 102/88 (93) 100 07/08/19 11:00 26 102/88 Mechanical Ventilator 30 07/08/19 10:45 122 26 91/60 (70) 100 07/08/19 10:30 130 26 82/63 (69) 100 07/08/19 10:15 142 26 115/83 (94) 100 07/08/19 10:11 128 15 100 07/08/19 10:10 130 15 100 07/08/19 10:00 99.8 143 120/78 (92) 07/08/19 10:00 26 119/78 Mechanical Ventilator 30 07/08/19 10:00 30 07/08/19 10:00 Mechanical Ventilator 07/08/19 09:02 100 21 84/60 (68) 100 07/08/19 09:00 16 88/60 Mechanical Ventilator 30 07/08/19 09:00 100 20 88/60 (69) 100 07/08/19 08:45 101 16 115/79 (91) 100 07/08/19 08:30 98 21 105/59 (74) 100 07/08/19 08:00 97 07/08/19 08:00 20 85/59 Mechanical Ventilator 30 07/08/19 08:00 30 07/08/19 08:00 99.5 101 19 85/59 (68) 100 07/08/19 08:00 Mechanical Ventilator 07/08/19 07:30 104 23 117/85 (96) 100 07/08/19 07:19 104 26 100 Mechanical Ventilator 30 102 26 30 07/08/19 07:00 104 17 118/81 (93) 100 07/08/19 07:00 17 118/81 Mechanical Ventilator 30 07/08/19 06:30 100 26 85/61 (69) 100 07/08/19 06:30 100 26 07/08/19 06:00 26 131/76 Mechanical Ventilator 30 07/08/19 06:00 101 26 131/76 (94) 100 07/08/19 05:30 97 26 95/62 (73) 100 07/08/19 05:00 25 82/56 Mechanical Ventilator 30 07/08/19 05:00 101 25 82/56 (65) 100 07/08/19 04:30 104 26 84/55 (65) 100 07/08/19 04:15 110 27 103/63 (76) 100 07/08/19 04:00 Mechanical Ventilator 07/08/19 04:00 30 07/08/19 04:00 26 105/68 Mechanical Ventilator 30 07/08/19 04:00 98.1 108 19 105/68 (80) 100 07/08/19 03:57 108 07/08/19 03:45 107 21 129/81 (97) 100 07/08/19 03:30 103 22 80/52 (61) 100 07/08/19 03:00 16 107/72 Mechanical Ventilator 30 07/08/19 03:00 99 16 107/72 (84) 100 07/08/19 02:53 98 26 100 Mechanical Ventilator 30 96 26 30 07/08/19 02:30 94 22 85/50 (62) 100 07/08/19 02:00 26 91/26 Mechanical Ventilator 30 07/08/19 02:00 93 26 91/62 (72) 100 07/08/19 01:30 93 26 88/56 (67) 100 07/08/19 01:00 102 26 121/77 (92) 100 07/08/19 01:00 26 121/77 Mechanical Ventilator 30 07/08/19 00:40 94 26 106/64 (78) 100 07/08/19 00:30 97 26 76/55 (62) 100 07/08/19 00:16 96 26 84/55 (65) 100 07/08/19 00:00 94 07/08/19 00:00 26 110/73 Mechanical Ventilator 30 07/08/19 00:00 30 07/08/19 00:00 Mechanical Ventilator 07/08/19 00:00 98.6 94 26 110/73 (85) 100 07/07/19 23:45 92 26 89/59 (69) 100 07/07/19 23:41 92 26 85/56 (66) 100 07/07/19 23:34 96 26 77/56 (63) 100 07/07/19 23:30 99 26 84/57 (66) 100 07/07/19 23:15 98 26 130/75 (93) 100 07/07/19 23:00 100 26 98/57 (71) 100 07/07/19 23:00 26 98/57 Mechanical Ventilator 30 07/07/19 23:00 98/57 07/07/19 22:00 26 98/57 Mechanical Ventilator 30 07/07/19 22:00 98 26 81/57 (65) 100 07/07/19 21:46 91 26 100 Mechanical Ventilator 30 90 26 30 07/07/19 21:45 90 26 98/74 (82) 100 07/07/19 21:30 84 26 96/64 (75) 100 5/27/20 21:00 90 19 102/62 (75) 100 07/07/19 21:00 19 102/62 Mechanical Ventilator 30 07/07/19 20:30 97 12 103/56 (72) 100 07/07/19 20:00 30 07/07/19 20:00 98.8 110 29 128/83 (98) 100 07/07/19 20:00 Mechanical Ventilator 07/07/19 20:00 29 128/83 Mechanical Ventilator 30 07/07/19 19:44 115 33 100 Mechanical Ventilator 30 117 33 30 07/07/19 19:30 115 07/07/19 19:00 31 150/86 Mechanical Ventilator 30 07/07/19 19:00 115 31 150/86 (107) 100 07/07/19 18:45 113 21 133/73 (93) 100 07/07/19 18:30 104 25 98/64 (75) 100 07/07/19 18:15 104 26 90/70 (77) 100 07/07/19 18:00 113 22 106/70 (82) 100 07/07/19 18:00 26 106/70 Mechanical Ventilator 30 07/07/19 17:45 109 20 130/85 (100) 100 07/07/19 17:30 103 0 93/72 (79) 100 07/07/19 17:30 20 93/72 Mechanical Ventilator 30 07/07/19 17:15 107 21 145/82 (103) 100 07/07/19 17:00 104 15 101/66 (78) 100 07/07/19 17:00 20 145/82 30 07/07/19 16:45 104 11 89/65 (73) 100 07/07/19 16:30 108 21 128/78 (95) 100 07/07/19 16:15 102 17 118/71 (87) 100 07/07/19 16:00 99.4 106 1 99/65 (76) 100 07/07/19 16:00 Mechanical Ventilator 07/07/19 16:00 20 118/71 Mechanical Ventilator 30 07/07/19 16:00 115 Intake and Output 07/07/19 07/08/19 19:00 07:00 Intake Total 316.35 ml 302 ml Output Total 5 ml 5 ml Balance 311.35 ml 297 ml Free Water 20 ml IV Total 16.35 ml 77 ml Tube Feeding 280 ml 175 ml Other 50 ml Output Urine Total 5 ml 5 ml # Bowel Movements 3 2 Laboratory Tests Test 07/08/19 04:44 White Blood Count 16.4 K/UL (4.8-10.8) H Red Blood Count 3.33 M/UL (4.70-6.10) L Hemoglobin 9.5 G/DL (14.2-18.0) L Hematocrit 30.5 % (42.0-52.0) L Mean Corpuscular Volume 92 FL (80-99) Mean Corpuscular Hemoglobin 28.6 PG (27.0-31.0) Mean Corpuscular Hemoglobin Concent 31.2 G/DL (32.0-36.0) L Red Cell Distribution Width 16.7 % (11.6-14.8) H Platelet Count 506 K/UL (150-450) H Mean Platelet Volume 6.0 FL (6.5-10.1) L Neutrophils (%) (Auto) 77.8 % (45.0-75.0) H Lymphocytes (%) (Auto) 12.4 % (20.0-45.0) L Monocytes (%) (Auto) 7.0 % (1.0-10.0) Eosinophils (%) (Auto) 2.1 % (0.0-3.0) Basophils (%) (Auto) 0.8 % (0.0-2.0) Sodium Level 145 MMOL/L (136-145) Potassium Level 4.3 MMOL/L (3.5-5.1) Chloride Level 100 MMOL/L (98-107) Carbon Dioxide Level 27 MMOL/L (21-32) Anion Gap 18 mmol/L (5-15) H Blood Urea Nitrogen 72 mg/dL (7-18) H Creatinine 9.9 MG/DL (0.55-1.30) H Estimat Glomerular Filtration Rate 5.3 mL/min (>60) Glucose Level 188 MG/DL (74-106) H Calcium Level 9.9 MG/DL (8.5-10.1) Phosphorus Level 5.6 MG/DL (2.5-4.9) H Magnesium Level 2.9 MG/DL (1.8-2.4) H Total Bilirubin 0.5 MG/DL (0.2-1.0) Aspartate Amino Transf (AST/SGOT) 38 U/L (15-37) H Alanine Aminotransferase (ALT/SGPT) 19 U/L (12-78) Alkaline Phosphatase 98 U/L (46-116) C-Reactive Protein, Quantitative 7.2 mg/dL (0.00-0.90) H Pro-B-Type Natriuretic Peptide 35972 pg/mL (0-125) H Total Protein 10.0 G/DL (6.4-8.2) H Albumin 3.0 G/DL (3.4-5.0) L Globulin 7.0 g/dL Albumin/Globulin Ratio 0.4 (1.0-2.7) L Objective HEAD AND NECK: No JVD. Trancheostomy in place LUNGS: Decreased breath sounds. CARDIOVASCULAR: Regular S1 and S2. Tachycardic. ABDOMEN: Soft. EXTREMITIES: No pitting edema. New Left FV Gio Engle MD July 08, 2019 15:57
--- NOTE | 2019-07-08 16:16 | General Progress Note ---
Assessment/Plan Problem List: (1) HTN (hypertension) ICD Codes: I10 - Essential (primary) hypertension SNOMED: 34370364 (2) CASSANDRA (acute kidney injury) ICD Codes: N17.9 - Acute kidney failure, unspecified SNOMED: 1427114, 87319240 (3) Anemia in chronic kidney disease (CKD) ICD Codes: N18.9 - Chronic kidney disease, unspecified; D63.1 - Anemia in chronic kidney disease SNOMED: 828076769 (4) Renal failure ICD Codes: N19 - Unspecified kidney failure SNOMED: 15474394 (5) Respiratory failure requiring intubation ICD Codes: J96.90 - Respiratory failure, unspecified, unspecified whether with hypoxia or hypercapnia; A41.89 - Other specified sepsis SNOMED: 227930746, 929776830 (6) Pneumonia due to COVID-19 virus ICD Codes: U07.1 - COVID-19; J12.89 - Other viral pneumonia SNOMED: 601188525, 139706363 (7) Sepsis due to severe acute respiratory syndrome coronavirus 2 (SARS-CoV-2) ICD Codes: U07.1 - COVID-19; A41.89 - Other specified sepsis SNOMED: 269535906, 101840705 Status: unchanged Assessment/Plan: sepsis pna trach diaylsis per renal sepsis check lytes Subjective ROS Limited/Unobtainable: Yes Allergies: Coded Allergies: No Known Allergies (Unverified , 05/28/19) Objective Last 24 Hour Vital Signs Date Time Temp Pulse Resp B/P (MAP) Pulse Ox O2 Delivery O2 Flow Rate FiO2 07/08/19 15:30 112 26 116/79 (91) 100 07/08/19 15:01 113 27 100 Mechanical Ventilator 30 115 26 30 07/08/19 15:00 112 26 86/66 (73) 95 07/08/19 14:00 119 26 121/76 (91) 98 07/08/19 14:00 26 121/76 Mechanical Ventilator 30 07/08/19 13:30 114 15 83/58 (66) 98 07/08/19 13:00 119 26 81/58 (66) 96 07/08/19 13:00 26 101/84 Mechanical Ventilator 30 07/08/19 12:30 99.3 139 18 128/84 (99) 98 07/08/19 12:00 Mechanical Ventilator 07/08/19 12:00 138 31 116/91 (99) 91 07/08/19 12:00 129 07/08/19 12:00 36 116/91 Mechanical Ventilator 30 07/08/19 12:00 30 07/08/19 11:30 142 51 141/89 (106) 93 07/08/19 11:03 123 26 100 Mechanical Ventilator 30 115 26 30 07/08/19 11:00 126 29 102/88 (93) 100 07/08/19 11:00 26 102/88 Mechanical Ventilator 30 07/08/19 10:45 122 26 91/60 (70) 100 07/08/19 10:30 130 26 82/63 (69) 100 07/08/19 10:15 142 26 115/83 (94) 100 07/08/19 10:11 128 15 100 07/08/19 10:10 130 15 100 07/08/19 10:00 99.8 143 120/78 (92) 07/08/19 10:00 26 119/78 Mechanical Ventilator 30 07/08/19 10:00 30 07/08/19 10:00 Mechanical Ventilator 07/08/19 09:02 100 21 84/60 (68) 100 07/08/19 09:00 16 88/60 Mechanical Ventilator 30 07/08/19 09:00 100 20 88/60 (69) 100 07/08/19 08:45 101 16 115/79 (91) 100 07/08/19 08:30 98 21 105/59 (74) 100 07/08/19 08:00 97 07/08/19 08:00 20 85/59 Mechanical Ventilator 30 07/08/19 08:00 30 07/08/19 08:00 99.5 101 19 85/59 (68) 100 07/08/19 08:00 Mechanical Ventilator 07/08/19 07:30 104 23 117/85 (96) 100 07/08/19 07:19 104 26 100 Mechanical Ventilator 30 102 26 30 07/08/19 07:00 104 17 118/81 (93) 100 07/08/19 07:00 17 118/81 Mechanical Ventilator 30 07/08/19 06:30 100 26 85/61 (69) 100 07/08/19 06:30 100 26 07/08/19 06:00 26 131/76 Mechanical Ventilator 30 07/08/19 06:00 101 26 131/76 (94) 100 07/08/19 05:30 97 26 95/62 (73) 100 07/08/19 05:00 25 82/56 Mechanical Ventilator 30 07/08/19 05:00 101 25 82/56 (65) 100 07/08/19 04:30 104 26 84/55 (65) 100 07/08/19 04:15 110 27 103/63 (76) 100 07/08/19 04:00 Mechanical Ventilator 07/08/19 04:00 30 07/08/19 04:00 26 105/68 Mechanical Ventilator 30 07/08/19 04:00 98.1 108 19 105/68 (80) 100 07/08/19 03:57 108 07/08/19 03:45 107 21 129/81 (97) 100 07/08/19 03:30 103 22 80/52 (61) 100 07/08/19 03:00 16 107/72 Mechanical Ventilator 30 07/08/19 03:00 99 16 107/72 (84) 100 07/08/19 02:53 98 26 100 Mechanical Ventilator 30 96 26 30 07/08/19 02:30 94 22 85/50 (62) 100 07/08/19 02:00 26 91/26 Mechanical Ventilator 30 07/08/19 02:00 93 26 91/62 (72) 100 07/08/19 01:30 93 26 88/56 (67) 100 07/08/19 01:00 102 26 121/77 (92) 100 07/08/19 01:00 26 121/77 Mechanical Ventilator 30 07/08/19 00:40 94 26 106/64 (78) 100 07/08/19 00:30 97 26 76/55 (62) 100 07/08/19 00:16 96 26 84/55 (65) 100 07/08/19 00:00 94 07/08/19 00:00 26 110/73 Mechanical Ventilator 30 07/08/19 00:00 30 07/08/19 00:00 Mechanical Ventilator 07/08/19 00:00 98.6 94 26 110/73 (85) 100 07/07/19 23:45 92 26 89/59 (69) 100 07/07/19 23:41 92 26 85/56 (66) 100 5/27/20 23:34 96 26 77/56 (63) 100 07/07/19 23:30 99 26 84/57 (66) 100 07/07/19 23:15 98 26 130/75 (93) 100 07/07/19 23:00 100 26 98/57 (71) 100 07/07/19 23:00 26 98/57 Mechanical Ventilator 30 07/07/19 23:00 98/57 07/07/19 22:00 26 98/57 Mechanical Ventilator 30 07/07/19 22:00 98 26 81/57 (65) 100 07/07/19 21:46 91 26 100 Mechanical Ventilator 30 90 26 30 07/07/19 21:45 90 26 98/74 (82) 100 07/07/19 21:30 84 26 96/64 (75) 100 07/07/19 21:00 90 19 102/62 (75) 100 07/07/19 21:00 19 102/62 Mechanical Ventilator 30 07/07/19 20:30 97 12 103/56 (72) 100 07/07/19 20:00 30 07/07/19 20:00 98.8 110 29 128/83 (98) 100 07/07/19 20:00 Mechanical Ventilator 07/07/19 20:00 29 128/83 Mechanical Ventilator 30 07/07/19 19:44 115 33 100 Mechanical Ventilator 30 117 33 30 07/07/19 19:30 115 07/07/19 19:00 31 150/86 Mechanical Ventilator 30 07/07/19 19:00 115 31 150/86 (107) 100 07/07/19 18:45 113 21 133/73 (93) 100 07/07/19 18:30 104 25 98/64 (75) 100 07/07/19 18:15 104 26 90/70 (77) 100 07/07/19 18:00 113 22 106/70 (82) 100 07/07/19 18:00 26 106/70 Mechanical Ventilator 30 07/07/19 17:45 109 20 130/85 (100) 100 07/07/19 17:30 103 0 93/72 (79) 100 07/07/19 17:30 20 93/72 Mechanical Ventilator 30 07/07/19 17:15 107 21 145/82 (103) 100 07/07/19 17:00 104 15 101/66 (78) 100 07/07/19 17:00 20 145/82 30 07/07/19 16:45 104 11 89/65 (73) 100 07/07/19 16:30 108 21 128/78 (95) 100 Intake and Output 07/07/19 07/08/19 19:00 07:00 Intake Total 316.35 ml 302 ml Output Total 5 ml 5 ml Balance 311.35 ml 297 ml Free Water 20 ml IV Total 16.35 ml 77 ml Tube Feeding 280 ml 175 ml Other 50 ml Output Urine Total 5 ml 5 ml # Bowel Movements 3 2 Laboratory Tests 07/08/19 04:44: White Blood Count 16.4H, Red Blood Count 3.33L, Hemoglobin 9.5L, Hematocrit 30.5L, Mean Corpuscular Volume 92, Mean Corpuscular Hemoglobin 28.6, Mean Corpuscular Hemoglobin Concent 31.2L, Red Cell Distribution Width 16.7H, Platelet Count 506H, Mean Platelet Volume 6.0L, Neutrophils (%) (Auto) 77.8H, Lymphocytes (%) (Auto) 12.4L, Monocytes (%) (Auto) 7.0, Eosinophils (%) (Auto) 2.1, Basophils (%) (Auto) 0.8, Sodium Level 145, Potassium Level 4.3, Chloride Level 100, Carbon Dioxide Level 27, Anion Gap 18H, Blood Urea Nitrogen 72H, Creatinine 9.9H, Estimat Glomerular Filtration Rate 5.3, Glucose Level 188H, Calcium Level 9.9, Phosphorus Level 5.6H, Magnesium Level 2.9H, Total Bilirubin 0.5, Aspartate Amino Transf (AST/SGOT) 38H, Alanine Aminotransferase (ALT/SGPT) 19, Alkaline Phosphatase 98, C-Reactive Protein, Quantitative 7.2H, Pro-B-Type Natriuretic Peptide 21400U, Total Protein 10.0H, Albumin 3.0L, Globulin 7.0, Albumin/Globulin Ratio 0.4L Height (Feet): 6 Height (Inches): 1.00 Weight (Pounds): 161 Karishma Mulligan MD July 08, 2019 16:16
--- NOTE | 2019-07-08 17:30 | Operative Note - Dictated ---
DATE OF OPERATION: 07/08/2019 PREOPERATIVE DIAGNOSES: 1. Respiratory insufficiency requiring prolonged ventilator support. 2. COVID positive. POSTOPERATIVE DIAGNOSES: 1. Respiratory insufficiency requiring prolonged ventilator support. 2. COVID positive. OPERATION PERFORMED: Tracheostomy. ATTENDING SURGEON: Yaniv Mast MD. [employer]IL[employer] SURGEON: Danna Palmer MD. ANESTHESIA: General GETA plus local. ESTIMATED BLOOD LOSS: Minimal. IV FLUIDS: Please see anesthesia records. COMPLICATIONS: None. DRAINS: None. COUNTS: Sponge, needle count correct x2. WOUND CLASSIFICATION: Class 1. INDICATIONS FOR PROCEDURE: This is a 68-year-old male who is COVID positive who declined went into renal insufficiency, respiratory insufficiency, currently intubated for some prolonged period of time in the intensive care unit, unable to safely wean off ventilator support. During weaning trials, patient becomes extremely tachypneic and tachycardic and restless and blood gases were okay, though he was not safe for extubation given his current status, condition, mental history, and COVID positive with high probability of failure given recent respiratory failure and difficulty weaning as above. Patient is conserved by [facility] and I spoke to the conservator in the [place] and discussed the patient's case and condition. After doing so, obtained consent to proceed with medical care that is indicated and medically necessary given the patient's current code status wishes. OPERATIVE NOTE: The patient was taken to the operating room, placed on the operating table in supine position with both arms down. All COVID precautions were taken including surgeons, anesthesiologist, and staff and for patient and everyone as well. A shoulder roll was placed. Neck was hyperexpanded. The neck was prepped and draped in standard surgical fashion. Prior to entering the operative room, patient already had a feeding tube orally and ET tube in place. The neck was prepped, draped in standard surgical fashion. Local anesthetic was infiltrated in the proposed skin incision. A skin incision was made 2 fingerbreadths above the sternal notch, carried down through the subcutaneous tissue, platysma into the strap muscles. Strap muscles were divided and the trachea was identified. A tracheal hook was placed and the first, second, and third tracheal rings were clearly identified and exposure obtained. Following this, a window was made in the tracheal ring cartilage and the ET tube was identified. ET tube was slowly withdrawn until above the window. Once above the window, an 8-Libyan Shiley tracheostomy was inserted under direct visualization without complication. Balloon insufflated and the patient ventilated through the tracheostomy with good end-tidal CO2 and volumes. ET tube was removed. Skin incisions were reapproximated using 2-0 Monocryl. Dressings and trach strap were applied. Patient tolerated the procedure well and was taken directly to the intensive care unit postoperatively. Yaniv Mast M.D. DR: KATE JOB#: [id number] CC:
[2019-07-08] MEDS: Dyna-Hex 2% Top Sol 2oz TOPIC SCH (20:23)
[2019-07-08] MEDS: D5W IV SCH ×3 (23:00)
[2019-07-08] MEDS: NOREPINEPHRINE BITARTRATE IV SCH ×3 (23:00)
--- NOTE | 2019-07-08 23:42 | Pulmonolgy Critical Care Note ---
Critical Care - Asmt/Plan Assessment/Plan: Pulmonary CCM Progress Note HPI: Patient is a 68 year old man, long term resident, admitted c/o shortness of breath, cough, noted to have Covid 19 Pneumonia, Respiratory Failure S/p intubation, CXR improving infiltrates ETT adjusted Septic Shock, pressors off Preserved EF FIO2 40%-50%, P5, adequate O2 sats, remains on ACVC, s/p Tracheostomy, CXR stable Anemic ID following See earlier Past Medical History: COPD, CKD, Hypertension, Anemia Allergies: No Known Allergies Improving Pulmonary Status on HD Physical Exam Vital Signs Noted Sedated on ventilator WDWN, no distress HEENT: NCAT,moist mm Chest: Occasional rhonchi Heart: HS1, HS2, RRR Abdomen: SNTND, no masses Extremities: Well perfused, no edema 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, 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, 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 Impression: COVID-19 virus infection Pneumonia Respiratory failure on ventilator, wean as tolerated CKD - on HD Hypotension on pressors previously Cardiomegaly Lymphopenia Elevated AST COPD Chronic Kidney Disease - HD H/o Hypertension Worsening anemia Plan: Tolerated Tracheostomy Antibiotics per ID HD Pressors PRN ACVC - wean as tolerated 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 Monitor cultures/viral studies PPX Hemodialysis per Renal Psychiatry following [facility] - [facility] requested for when available, [facility] - not available as yet Laboratory Tests Noted: CXR: Hypoventilatory exam, interstitial changes, cardiomegaly, improving infiltrates Subjective ROS Limited/Unobtainable: No Constitutional: Denies: fever Respiratory: Reports: dry cough, shortness of breath Gastrointestinal/Abdominal: Reports: diarrhea, other - colace was stopped Psychiatric: Reports: other - refuses labs Allergies: Coded Allergies: No Known Allergies (Unverified , 05/28/19) All Systems: reviewed and negative except above Labs noted Critical Care - Objective Last 24 Hour Vital Signs Date Time Temp Pulse Resp B/P (MAP) Pulse Ox O2 Delivery O2 Flow Rate FiO2 07/08/19 22:00 108 25 130/72 (91) 100 07/08/19 22:00 25 130/72 Mechanical Ventilator 30 07/08/19 21:30 104 26 102/71 (81) 100 07/08/19 21:00 98 27 133/86 (102) 100 07/08/19 21:00 26 133/86 Mechanical Ventilator 30 07/08/19 20:30 101 26 138/76 (96) 100 07/08/19 20:00 Mechanical Ventilator 07/08/19 20:00 28 108/69 Mechanical Ventilator 30 07/08/19 20:00 30 07/08/19 20:00 98.9 105 28 108/69 (82) 100 07/08/19 19:39 100 07/08/19 19:30 105 26 112/63 (79) 100 07/08/19 19:02 102 28 100 Mechanical Ventilator 30 105 28 30 07/08/19 19:00 104 26 111/69 (83) 100 07/08/19 19:00 27 111/69 Mechanical Ventilator 30 07/08/19 18:00 95 24 115/65 (82) 100 07/08/19 18:00 26 104/63 Mechanical Ventilator 30 07/08/19 17:30 99.0 95 26 88/55 (66) 100 07/08/19 17:00 26 116/70 Mechanical Ventilator 30 07/08/19 17:00 99 26 116/70 (85) 100 07/08/19 16:30 108 23 126/75 (92) 100 07/08/19 16:00 30 07/08/19 16:00 110 25 138/82 (100) 100 07/08/19 16:00 Mechanical Ventilator 07/08/19 16:00 26 138/82 Mechanical Ventilator 30 07/08/19 15:30 112 26 116/79 (91) 100 07/08/19 15:23 117 07/08/19 15:01 113 27 100 Mechanical Ventilator 30 115 26 30 07/08/19 15:00 26 86/66 Mechanical Ventilator 30 07/08/19 15:00 112 26 86/66 (73) 95 07/08/19 14:00 119 26 121/76 (91) 98 07/08/19 14:00 26 121/76 Mechanical Ventilator 30 07/08/19 13:30 114 15 83/58 (66) 98 07/08/19 13:00 119 26 81/58 (66) 96 07/08/19 13:00 26 101/84 Mechanical Ventilator 30 07/08/19 12:30 99.3 139 18 128/84 (99) 98 07/08/19 12:00 Mechanical Ventilator 07/08/19 12:00 138 31 116/91 (99) 91 07/08/19 12:00 129 07/08/19 12:00 36 116/91 Mechanical Ventilator 30 07/08/19 12:00 30 07/08/19 11:30 142 51 141/89 (106) 93 07/08/19 11:03 123 26 100 Mechanical Ventilator 30 115 26 30 07/08/19 11:00 126 29 102/88 (93) 100 07/08/19 11:00 26 102/88 Mechanical Ventilator 30 07/08/19 10:45 122 26 91/60 (70) 100 07/08/19 10:30 130 26 82/63 (69) 100 07/08/19 10:15 142 26 115/83 (94) 100 07/08/19 10:11 128 15 100 07/08/19 10:10 130 15 100 07/08/19 10:00 99.8 143 120/78 (92) 07/08/19 10:00 26 119/78 Mechanical Ventilator 30 07/08/19 10:00 30 07/08/19 10:00 Mechanical Ventilator 07/08/19 09:02 100 21 84/60 (68) 100 07/08/19 09:00 16 88/60 Mechanical Ventilator 30 07/08/19 09:00 100 20 88/60 (69) 100 07/08/19 08:45 101 16 115/79 (91) 100 07/08/19 08:30 98 21 105/59 (74) 100 07/08/19 08:00 97 07/08/19 08:00 20 85/59 Mechanical Ventilator 30 07/08/19 08:00 30 07/08/19 08:00 99.5 101 19 85/59 (68) 100 07/08/19 08:00 Mechanical Ventilator 07/08/19 07:30 104 23 117/85 (96) 100 07/08/19 07:19 104 26 100 Mechanical Ventilator 30 102 26 30 07/08/19 07:00 104 17 118/81 (93) 100 07/08/19 07:00 17 118/81 Mechanical Ventilator 30 07/08/19 06:30 100 26 85/61 (69) 100 07/08/19 06:30 100 26 07/08/19 06:00 26 131/76 Mechanical Ventilator 30 07/08/19 06:00 101 26 131/76 (94) 100 07/08/19 05:30 97 26 95/62 (73) 100 07/08/19 05:00 25 82/56 Mechanical Ventilator 30 07/08/19 05:00 101 25 82/56 (65) 100 07/08/19 04:30 104 26 84/55 (65) 100 07/08/19 04:15 110 27 103/63 (76) 100 07/08/19 04:00 Mechanical Ventilator 07/08/19 04:00 30 07/08/19 04:00 26 105/68 Mechanical Ventilator 30 07/08/19 04:00 98.1 108 19 105/68 (80) 100 07/08/19 03:57 108 07/08/19 03:45 107 21 129/81 (97) 100 07/08/19 03:30 103 22 80/52 (61) 100 07/08/19 03:00 16 107/72 Mechanical Ventilator 30 07/08/19 03:00 99 16 107/72 (84) 100 07/08/19 02:53 98 26 100 Mechanical Ventilator 30 96 26 30 07/08/19 02:30 94 22 85/50 (62) 100 07/08/19 02:00 26 91/26 Mechanical Ventilator 30 07/08/19 02:00 93 26 91/62 (72) 100 07/08/19 01:30 93 26 88/56 (67) 100 07/08/19 01:00 102 26 121/77 (92) 100 07/08/19 01:00 26 121/77 Mechanical Ventilator 30 07/08/19 00:40 94 26 106/64 (78) 100 07/08/19 00:30 97 26 76/55 (62) 100 07/08/19 00:16 96 26 84/55 (65) 100 07/08/19 00:00 94 07/08/19 00:00 26 110/73 Mechanical Ventilator 30 07/08/19 00:00 30 07/08/19 00:00 Mechanical Ventilator 07/08/19 00:00 98.6 94 26 110/73 (85) 100 07/07/19 23:45 92 26 89/59 (69) 100 Accucheck: 153 Critical Care - Subjective ROS Limited/Unobtainable: No Condition: stable IV Access: central FI02: 30 Vent Support Breath Rate: 26 Vent Support Mode: AC Vent Tidal Volume: 500 Sputum Amount: Small PEEP: 5.0 PIP: 29 Tube Feeding Amount: 20 I&O: Intake and Output 07/07/19 07/08/19 18:59 06:59 Intake Total 275.35 ml 338 ml Output Total 5 ml 5 ml Balance 270.35 ml 333 ml Free Water 20 ml IV Total 10.35 ml 78 ml Tube Feeding 245 ml 210 ml Other 50 ml Output Urine Total 5 ml 5 ml # Bowel Movements 3 2 ET-Tube: 7.5 ET Position: 24 Arturo Mckeon MD July 08, 2019 23:42
[2019-07-09] VITALS (42 sets, daily range): BP systolic 81–151; BP diastolic 55–84
[2019-07-09] MEDS: Albuterol 90mcg Inhaler 8gm INH SCH ×6 (03:13→23:00)
[2019-07-09] MEDS: NovoLOG Insulin Flexpen SUBQ SCH ×4 (06:00→23:36)
[2019-07-09] MEDS: Renvela 800mg Pkt NG SCH ×3 (06:00→22:06)
[2019-07-09 06:26] LABS: HEMATOCRIT 29.8 % (42.0-52.0); HEMOGLOBIN 9.4 G/DL (14.2-18.0); MEAN CORPUSCULAR VOLUME 92 FL (80-99); PLATELET COUNT 506 K/UL (150-450); RED BLOOD COUNT 3.23 M/UL (4.70-6.10); RED CELL DISTRIBUTION WIDTH 16.2 % (11.6-14.8); WHITE BLOOD COUNT 18.2 K/UL (4.8-10.8)
[2019-07-09 07:42] LABS: ALANINE AMINOTRANSFERASE 21 U/L (12-78); ALBUMIN 3.3 G/DL (3.4-5.0); ALBUMIN/GLOBULIN RATIO 0.5 (1.0-2.7); ALKALINE PHOSPHATASE 94 U/L (46-116); ANION GAP 17 mmol/L (5-15); ASPARTATE AMINO TRANSFERASE 34 U/L (15-37); BILIRUBIN,TOTAL 0.5 MG/DL (0.2-1.0); BLOOD UREA NITROGEN 86 mg/dL (7-18); CARBON DIOXIDE 26 MMOL/L (21-32); CHLORIDE 100 MMOL/L (98-107); CREATININE 11.8 MG/DL (0.55-1.30); PHOSPHORUS 6.5 MG/DL (2.5-4.9); POTASSIUM 4.7 MMOL/L (3.5-5.1); SODIUM 143 MMOL/L (136-145)
[2019-07-09] MEDS: Midodrine 10mg tab NG SCH ×4 (09:00→17:31)
[2019-07-09] MEDS: Enoxaparin 30mg Inj SUBQ SCH (09:00)
[2019-07-09] MEDS: Pantoprazole Inj IVP SCH (09:19)
--- NOTE | 2019-07-09 10:49 | General Progress Note ---
Assessment/Plan Status: unchanged Assessment/Plan: 1. Diabetes. 2. Hypertension. 3. Coronary artery disease. 4. COPD. 5. Psychiatric disorder with schizophrenia. 6. History of hepatitis C. 7. HLP. 8. Chronic kidney disease, now with acute renal failure. 9. Anemia. 10. Hypothyroidism. 11. Spinal stenosis. 12. Constipation. 13. GERD. 14. COVID positive HD per nephrology peg is pending today for consent lest massages for DPOA Subjective ROS Limited/Unobtainable: No Allergies: Coded Allergies: No Known Allergies (Unverified , 05/28/19) Objective Last 24 Hour Vital Signs Date Time Temp Pulse Resp B/P (MAP) Pulse Ox O2 Delivery O2 Flow Rate FiO2 07/09/19 10:00 105 17 100 07/09/19 10:00 105 17 111/69 (83) 100 07/09/19 09:45 108 14 89/57 (68) 100 07/09/19 09:45 108 14 89/57 (68) 100 07/09/19 09:30 112 24 112/68 (83) 100 07/09/19 09:30 112 24 112/68 (83) 100 07/09/19 09:15 128/71 (90) 07/09/19 09:15 128/71 (90) 07/09/19 09:00 124/71 (88) 07/09/19 09:00 124/71 (88) 07/09/19 08:45 107 26 93/70 (78) 100 07/09/19 08:45 107 26 93/70 (78) 100 07/09/19 08:30 112 27 135/73 (93) 100 07/09/19 08:30 112 27 135/73 (93) 100 07/09/19 08:15 106 1 81/55 (64) 100 07/09/19 08:15 106 1 81/55 (64) 100 07/09/19 08:00 101.0 07/09/19 08:00 30 07/09/19 08:00 114 6 122/68 (86) 100 07/09/19 08:00 Mechanical Ventilator 07/09/19 08:00 114 6 122/68 (86) 100 07/09/19 08:00 119 07/09/19 07:00 117 27 100 Mechanical Ventilator 30 115 29 30 07/09/19 07:00 27 132/73 Mechanical Ventilator 30 07/09/19 07:00 116 27 128/84 (99) 100 07/09/19 06:30 114 27 07/09/19 06:30 114 27 132/73 (92) 100 07/09/19 06:00 23 130/69 Mechanical Ventilator 30 07/09/19 06:00 112 23 130/69 (89) 100 07/09/19 05:30 109 24 123/74 (90) 100 07/09/19 05:00 106 25 107/60 (76) 100 07/09/19 05:00 25 107/60 Mechanical Ventilator 30 07/09/19 04:30 106 22 124/72 (89) 100 07/09/19 04:00 108 07/09/19 04:00 Mechanical Ventilator 07/09/19 04:00 27 120/78 Mechanical Ventilator 30 07/09/19 04:00 99.2 108 23 120/78 (92) 100 07/09/19 04:00 30 07/09/19 03:30 103 26 133/74 (93) 100 07/09/19 03:12 97 26 100 Mechanical Ventilator 30 97 28 30 07/09/19 03:00 111 27 140/75 (96) 100 07/09/19 03:00 27 140/75 Mechanical Ventilator 07/09/19 02:30 109 27 135/71 (92) 100 07/09/19 02:00 26 127/77 Mechanical Ventilator 30 07/09/19 02:00 110 26 127/77 (94) 100 07/09/19 01:30 105 28 139/76 (97) 100 07/09/19 01:00 109 26 141/72 (95) 100 07/09/19 01:00 26 141/72 Mechanical Ventilator 30 07/09/19 00:30 109 26 145/84 (104) 100 07/09/19 00:00 111 07/09/19 00:00 Mechanical Ventilator 07/09/19 00:00 26 151/76 Mechanical Ventilator 30 07/09/19 00:00 98.9 111 24 151/76 (101) 100 07/09/19 00:00 30 07/08/19 23:30 108 27 146/76 (99) 100 07/08/19 23:00 108 26 132/75 (94) 100 07/08/19 23:00 26 132/75 Mechanical Ventilator 30 07/08/19 23:00 146/76 07/08/19 22:56 109 26 100 Mechanical Ventilator 30 105 28 30 07/08/19 22:30 107 24 116/85 (95) 100 07/08/19 22:00 108 25 130/72 (91) 100 07/08/19 22:00 25 130/72 Mechanical Ventilator 30 07/08/19 21:30 104 26 102/71 (81) 100 07/08/19 21:00 98 27 133/86 (102) 100 07/08/19 21:00 26 133/86 Mechanical Ventilator 30 07/08/19 20:30 101 26 138/76 (96) 100 07/08/19 20:00 Mechanical Ventilator 07/08/19 20:00 28 108/69 Mechanical Ventilator 30 07/08/19 20:00 30 07/08/19 20:00 98.9 105 28 108/69 (82) 100 07/08/19 19:39 100 07/08/19 19:30 105 26 112/63 (79) 100 07/08/19 19:02 102 28 100 Mechanical Ventilator 30 105 28 30 07/08/19 19:00 104 26 111/69 (83) 100 07/08/19 19:00 27 111/69 Mechanical Ventilator 30 07/08/19 18:00 95 24 115/65 (82) 100 07/08/19 18:00 26 104/63 Mechanical Ventilator 30 07/08/19 17:30 99.0 95 26 88/55 (66) 100 07/08/19 17:00 26 116/70 Mechanical Ventilator 30 07/08/19 17:00 99 26 116/70 (85) 100 07/08/19 16:30 108 23 126/75 (92) 100 07/08/19 16:00 30 07/08/19 16:00 110 25 138/82 (100) 100 07/08/19 16:00 Mechanical Ventilator 07/08/19 16:00 26 138/82 Mechanical Ventilator 30 07/08/19 15:30 112 26 116/79 (91) 100 07/08/19 15:23 117 07/08/19 15:01 113 27 100 Mechanical Ventilator 30 115 26 30 07/08/19 15:00 26 86/66 Mechanical Ventilator 30 07/08/19 15:00 112 26 86/66 (73) 95 07/08/19 14:00 119 26 121/76 (91) 98 07/08/19 14:00 26 121/76 Mechanical Ventilator 30 07/08/19 13:30 114 15 83/58 (66) 98 07/08/19 13:00 119 26 81/58 (66) 96 07/08/19 13:00 26 101/84 Mechanical Ventilator 30 07/08/19 12:30 99.3 139 18 128/84 (99) 98 07/08/19 12:00 Mechanical Ventilator 07/08/19 12:00 138 31 116/91 (99) 91 07/08/19 12:00 129 07/08/19 12:00 36 116/91 Mechanical Ventilator 30 07/08/19 12:00 30 07/08/19 11:30 142 51 141/89 (106) 93 07/08/19 11:03 123 26 100 Mechanical Ventilator 30 115 26 30 07/08/19 11:00 126 29 102/88 (93) 100 07/08/19 11:00 26 102/88 Mechanical Ventilator 30 Intake and Output 07/08/19 07/09/19 18:59 06:59 Intake Total 354 ml 210 ml Output Total 0 ml 0 ml Balance 354 ml 210 ml IV Total 154 ml 60 ml Tube Feeding 100 ml 100 ml Other 100 ml 50 ml Output Urine Total 0 ml 0 ml Laboratory Tests 07/09/19 04:15: White Blood Count 18.2H, Red Blood Count 3.23L, Hemoglobin 9.4L, Hematocrit 29.8L, Mean Corpuscular Volume 92, Mean Corpuscular Hemoglobin 29.1, Mean Corpuscular Hemoglobin Concent 31.5L, Red Cell Distribution Width 16.2H, Platelet Count 506H, Mean Platelet Volume 5.7L, Neutrophils (%) (Auto) , Lymphocytes (%) (Auto) , Monocytes (%) (Auto) , Eosinophils (%) (Auto) , Basophils (%) (Auto) , Differential Total Cells Counted 100, Neutrophils % ( Manual) 94H, Lymphocytes % (Manual) 3L, Monocytes % (Manual) 2, Eosinophils % ( Manual) 1, Basophils % (Manual) 0, Band Neutrophils 0, Platelet Estimate IncreasedH, Platelet Morphology Normal, Anisocytosis 1+, Sodium Level 143, Potassium Level 4.7, Chloride Level 100, Carbon Dioxide Level 26, Anion Gap 17H , Blood Urea Nitrogen 86H, Creatinine 11.8H, Estimat Glomerular Filtration Rate 4.3, Glucose Level 180H, Calcium Level 10.0, Phosphorus Level 6.5H, Magnesium Level 3.1H, Total Bilirubin 0.5, Aspartate Amino Transf (AST/SGOT) 34, Alanine Aminotransferase (ALT/SGPT) 21, Alkaline Phosphatase 94, C-Reactive Protein, Quantitative 6.3H, Pro-B-Type Natriuretic Peptide 27292R, Total Protein 10.1H, Albumin 3.3L, Globulin 6.8, Albumin/Globulin Ratio 0.5L Height (Feet): 6 Height (Inches): 1.00 Weight (Pounds): 164 General Appearance: alert EENT: normal ENT inspection Neck: supple Cardiovascular: normal rate Respiratory/Chest: decreased breath sounds Abdomen: normal bowel sounds, non tender, soft Extremities: non-tender Marito Ramires MD July 09, 2019 10:49
--- NOTE | 2019-07-09 10:56 | Infectious Diseases Prog Note ---
Assessment/Plan Assessment/Plan IMPRESSION: 1. COVID19 pneumonia Positive: 05/27, 05/31 , 06/05, 06/09 ,06/17, 06/19, 06/23, 06/27, 07/03 2. MRSA carrier. 3. Chronic kidney disease , end-stage renal disease. 4. COPD. 5. Hypertension. 6. Anemia. 7. Hypothyroidism. 8. Hyperlipidemia. 9. Major depression. 10. Leukocytosis 11. Hypotension 12. Hepatitis C 13. Hyperuricemia 14. Diarrhea 15. septic shock resolved 16. Leukocytosis 17. Bacteremia with Staph epidermidis Subsequent cultures negative RECOMMENDATIONS: PermCath placement after tracheostomy Continue Vancomycin , add Meropenem Finished hydroxychloroquine. Will f/u COVID19 test Case was D/W RN Subjective ROS Limited/Unobtainable: Yes Constitutional: Reports: fever, other - T=101 Neurologic: Reports: confusion, other - on restraint Allergies: Coded Allergies: No Known Allergies (Unverified , 05/28/19) Objective Vital Signs Last 24 Hour Vital Signs Date Time Temp Pulse Resp B/P (MAP) Pulse Ox O2 Delivery O2 Flow Rate FiO2 07/09/19 10:49 104 27 100 Mechanical Ventilator 30 102 26 30 07/09/19 10:00 105 17 100 07/09/19 10:00 105 17 111/69 (83) 100 07/09/19 09:45 108 14 89/57 (68) 100 07/09/19 09:45 108 14 89/57 (68) 100 07/09/19 09:30 112 24 112/68 (83) 100 07/09/19 09:30 112 24 112/68 (83) 100 07/09/19 09:15 128/71 (90) 07/09/19 09:15 128/71 (90) 07/09/19 09:00 124/71 (88) 07/09/19 09:00 124/71 (88) 07/09/19 08:45 107 26 93/70 (78) 100 07/09/19 08:45 107 26 93/70 (78) 100 07/09/19 08:30 112 27 135/73 (93) 100 07/09/19 08:30 112 27 135/73 (93) 100 07/09/19 08:15 106 1 81/55 (64) 100 07/09/19 08:15 106 1 81/55 (64) 100 07/09/19 08:00 101.0 07/09/19 08:00 30 07/09/19 08:00 114 6 122/68 (86) 100 07/09/19 08:00 Mechanical Ventilator 07/09/19 08:00 114 6 122/68 (86) 100 07/09/19 08:00 119 07/09/19 07:00 117 27 100 Mechanical Ventilator 30 115 29 30 07/09/19 07:00 27 132/73 Mechanical Ventilator 30 07/09/19 07:00 116 27 128/84 (99) 100 07/09/19 06:30 114 27 07/09/19 06:30 114 27 132/73 (92) 100 07/09/19 06:00 23 130/69 Mechanical Ventilator 30 07/09/19 06:00 112 23 130/69 (89) 100 07/09/19 05:30 109 24 123/74 (90) 100 07/09/19 05:00 106 25 107/60 (76) 100 07/09/19 05:00 25 107/60 Mechanical Ventilator 07/09/19 04:30 106 22 124/72 (89) 100 07/09/19 04:00 108 07/09/19 04:00 Mechanical Ventilator 07/09/19 04:00 27 120/78 Mechanical Ventilator 07/09/19 04:00 99.2 108 23 120/78 (92) 100 07/09/19 04:00 30 07/09/19 03:30 103 26 133/74 (93) 100 07/09/19 03:12 97 26 100 Mechanical Ventilator 30 97 28 30 07/09/19 03:00 111 27 140/75 (96) 100 07/09/19 03:00 27 140/75 Mechanical Ventilator 30 07/09/19 02:30 109 27 135/71 (92) 100 07/09/19 02:00 26 127/77 Mechanical Ventilator 30 07/09/19 02:00 110 26 127/77 (94) 100 07/09/19 01:30 105 28 139/76 (97) 100 07/09/19 01:00 109 26 141/72 (95) 100 07/09/19 01:00 26 141/72 Mechanical Ventilator 30 07/09/19 00:30 109 26 145/84 (104) 100 07/09/19 00:00 111 07/09/19 00:00 Mechanical Ventilator 07/09/19 00:00 26 151/76 Mechanical Ventilator 30 07/09/19 00:00 98.9 111 24 151/76 (101) 100 07/09/19 00:00 30 07/08/19 23:30 108 27 146/76 (99) 100 07/08/19 23:00 108 26 132/75 (94) 100 07/08/19 23:00 26 132/75 Mechanical Ventilator 30 07/08/19 23:00 146/76 07/08/19 22:56 109 26 100 Mechanical Ventilator 30 105 28 30 07/08/19 22:30 107 24 116/85 (95) 100 07/08/19 22:00 108 25 130/72 (91) 100 07/08/19 22:00 25 130/72 Mechanical Ventilator 30 07/08/19 21:30 104 26 102/71 (81) 100 07/08/19 21:00 98 27 133/86 (102) 100 07/08/19 21:00 26 133/86 Mechanical Ventilator 30 07/08/19 20:30 101 26 138/76 (96) 100 07/08/19 20:00 Mechanical Ventilator 07/08/19 20:00 28 108/69 Mechanical Ventilator 30 07/08/19 20:00 30 07/08/19 20:00 98.9 105 28 108/69 (82) 100 07/08/19 19:39 100 07/08/19 19:30 105 26 112/63 (79) 100 07/08/19 19:02 102 28 100 Mechanical Ventilator 30 105 28 30 07/08/19 19:00 104 26 111/69 (83) 100 07/08/19 19:00 27 111/69 Mechanical Ventilator 30 07/08/19 18:00 95 24 115/65 (82) 100 07/08/19 18:00 26 104/63 Mechanical Ventilator 30 07/08/19 17:30 99.0 95 26 88/55 (66) 100 07/08/19 17:00 26 116/70 Mechanical Ventilator 30 07/08/19 17:00 99 26 116/70 (85) 100 07/08/19 16:30 108 23 126/75 (92) 100 07/08/19 16:00 30 07/08/19 16:00 110 25 138/82 (100) 100 07/08/19 16:00 Mechanical Ventilator 07/08/19 16:00 26 138/82 Mechanical Ventilator 30 07/08/19 15:30 112 26 116/79 (91) 100 07/08/19 15:23 117 07/08/19 15:01 113 27 100 Mechanical Ventilator 30 115 26 30 07/08/19 15:00 26 86/66 Mechanical Ventilator 30 07/08/19 15:00 112 26 86/66 (73) 95 07/08/19 14:00 119 26 121/76 (91) 98 07/08/19 14:00 26 121/76 Mechanical Ventilator 30 07/08/19 13:30 114 15 83/58 (66) 98 07/08/19 13:00 119 26 81/58 (66) 96 07/08/19 13:00 26 101/84 Mechanical Ventilator 30 07/08/19 12:30 99.3 139 18 128/84 (99) 98 07/08/19 12:00 Mechanical Ventilator 07/08/19 12:00 138 31 116/91 (99) 91 07/08/19 12:00 129 07/08/19 12:00 36 116/91 Mechanical Ventilator 30 07/08/19 12:00 30 07/08/19 11:30 142 51 141/89 (106) 93 07/08/19 11:03 123 26 100 Mechanical Ventilator 30 115 26 30 07/08/19 11:00 126 29 102/88 (93) 100 07/08/19 11:00 26 102/88 Mechanical Ventilator 30 Height (Feet): 6 Height (Inches): 1.00 Weight (Pounds): 164 HEENT: status post trach Respiratory/Chest: other - on ventilator Cardiovascular: normal rate, other - HD & central line Abdomen: soft, non tender Extremities: no edema Neurologic/Psychiatric: disoriented, other - moves extremities Laboratory Tests Test 07/09/19 04:15 White Blood Count 18.2 K/UL (4.8-10.8) H Red Blood Count 3.23 M/UL (4.70-6.10) L Hemoglobin 9.4 G/DL (14.2-18.0) L Hematocrit 29.8 % (42.0-52.0) L Mean Corpuscular Volume 92 FL (80-99) Mean Corpuscular Hemoglobin 29.1 PG (27.0-31.0) Mean Corpuscular Hemoglobin Concent 31.5 G/DL (32.0-36.0) L Red Cell Distribution Width 16.2 % (11.6-14.8) H Platelet Count 506 K/UL (150-450) H Mean Platelet Volume 5.7 FL (6.5-10.1) L Neutrophils (%) (Auto) % (45.0-75.0) Lymphocytes (%) (Auto) % (20.0-45.0) Monocytes (%) (Auto) % (1.0-10.0) Eosinophils (%) (Auto) % (0.0-3.0) Basophils (%) (Auto) % (0.0-2.0) Differential Total Cells Counted 100 Neutrophils % (Manual) 94 % (45-75) H Lymphocytes % (Manual) 3 % (20-45) L Monocytes % (Manual) 2 % (1-10) Eosinophils % (Manual) 1 % (0-3) Basophils % (Manual) 0 % (0-2) Band Neutrophils 0 % (0-8) Platelet Estimate Increased H Platelet Morphology Normal Anisocytosis 1+ Sodium Level 143 MMOL/L (136-145) Potassium Level 4.7 MMOL/L (3.5-5.1) Chloride Level 100 MMOL/L (98-107) Carbon Dioxide Level 26 MMOL/L (21-32) Anion Gap 17 mmol/L (5-15) H Blood Urea Nitrogen 86 mg/dL (7-18) H Creatinine 11.8 MG/DL (0.55-1.30) H Estimat Glomerular Filtration Rate 4.3 mL/min (>60) Glucose Level 180 MG/DL (74-106) H Calcium Level 10.0 MG/DL (8.5-10.1) Phosphorus Level 6.5 MG/DL (2.5-4.9) H Magnesium Level 3.1 MG/DL (1.8-2.4) H Total Bilirubin 0.5 MG/DL (0.2-1.0) Aspartate Amino Transf (AST/SGOT) 34 U/L (15-37) Alanine Aminotransferase (ALT/SGPT) 21 U/L (12-78) Alkaline Phosphatase 94 U/L (46-116) C-Reactive Protein, Quantitative 6.3 mg/dL (0.00-0.90) H Pro-B-Type Natriuretic Peptide 81422 pg/mL (0-125) H Total Protein 10.1 G/DL (6.4-8.2) H Albumin 3.3 G/DL (3.4-5.0) L Globulin 6.8 g/dL Albumin/Globulin Ratio 0.5 (1.0-2.7) L Current Medications Medications (Trade) Dose Ordered Sig/Anthony Route PRN Reason Start Time Stop Time Status Last Admin Dose Admin Acetaminophen (Tylenol) 650 mg Q4H PRN NG Temp >100.5 06/13/19 11:00 07/13/19 10:59 07/05/19 08:15 Albuterol Sulfate (Proventil MDI) 2 puff Q4HRT INH 06/06/19 23:00 08/30/19 18:59 07/09/19 10:49 Chlorhexidine Gluconate (Michelle-Hex 2%) 1 applic DAILY@2000 TOPIC 06/07/19 20:00 09/05/19 19:59 07/08/19 20:23 Dextrose (Dextrose 50%) 25 ml Q30M PRN IV Hypoglycemia 06/20/19 19:30 09/18/19 19:29 Dextrose (Dextrose 50%) 50 ml Q30M PRN IV Hypoglycemia 06/20/19 19:30 09/18/19 19:29 Dopamine HCl/ Dextrose 250 ml @ 0 mls/hr Q24H PRN IV For hypotension 06/13/19 08:15 09/11/19 08:14 Enoxaparin Sodium (Lovenox) 30 mg DAILY SUBQ 06/07/19 09:00 08/27/19 08:59 07/07/19 08:15 Epoetin Aftab (Epoetin Aftab(ESRD on dialysis)) 10,000 unit FRI-FRI-FRI SUBQ 06/07/19 21:00 08/31/19 20:59 07/07/19 21:30 Fentanyl Citrate 250 ml @ 0 mls/hr Q24H IV 06/24/19 06:00 09/22/19 05:59 07/08/19 10:00 Hydralazine HCl (Apresoline) 10 mg Q4H PRN IV Blood pressure over 160 systol 06/07/19 10:15 09/05/19 10:14 Insulin Aspart (NovoLOG) EVERY 6 HOURS SUBQ 06/21/19 00:00 09/19/19 00:00 07/08/19 18:59 Metoclopramide HCl (Reglan) 5 mg Q8H PRN IVP Nausea & Vomiting 06/18/19 12:00 07/18/19 11:59 06/19/19 00:50 Midodrine (Pro-Amatine) 10 mg THREE TIMES A DAY NG 06/09/19 13:00 09/07/19 12:59 07/08/19 18:12 Norepinephrine Bitartrate 8 mg/ Dextrose 283 ml @ 0 mls/hr Q24H IV 06/23/19 23:00 07/23/19 22:59 06/25/19 14:38 Pantoprazole (Protonix) 40 mg DAILY IVP 06/19/19 09:00 07/19/19 08:59 07/09/19 09:19 Sevelamer Carbonate (Renvela) 1,600 mg Q8HR NG 06/25/19 22:00 09/05/19 12:59 07/08/19 21:21 Vancomycin HCl (Vanco rx to dose) 1 ea DAILY PRN MISC Per rx protocol 07/01/19 11:00 07/31/19 10:59 Ted Leyva MD July 09, 2019 10:56
--- NOTE | 2019-07-09 11:06 | Nephrology Progress Note ---
Assessment/Plan Problem List: (1) CASSANDRA (acute kidney injury) (2) Anemia in chronic kidney disease (CKD) (3) HTN (hypertension) (4) COVID-19 Assessment Acute renal failure most likely superimposed on chronic kidney disease Suspected COVID-19 virus infection Possible Pneumonia, lymphopenia, elevated AST Cardiomegaly, possible CHF COPD Hypertension Anemia, most likely related to chronic kidney disease Plan July 08: Patient has tracheostomy now. Connected to ventilator. Due for dialysis today. Continue per consultants. Discussed with SHANIQUE Romero. July 07: Patient is due for tracheostomy today. Patient was last dialyzed July 05. Will order dialysis for tomorrow. July 06: Patient is intubated on ventilator however the plan is to extubate today. Patient was dialysis yesterday July 05. The dialysis time was cut short due to patient's respiratory distress. Only 1 L was removed during dialysis yesterday. Today's lab reviewed. Continue per consultants. Will arrange for dialysis as needed. July 05: Patient due for dialysis today. Remains intubated. Will schedule permacath placement in a.m. blood cultures on July 04 are negative. July 04: Patient was dialyzed yesterday. Due for dialysis tomorrow. Continues to be intubated. After tomorrow's dialysis will order a permacath. July 03: Dialysis is about to be started now Continues to be intubated Will plan to remove the femoral dialysis catheter and exchanged for a new temporary catheter per ID recommendation We will check surveillance blood culture tomorrow July 02: Patient was dialyzed yesterday and due for dialysis tomorrow Stable from renal standpoint W on dialysis Continue per consultants, weaning....... etc. July 01: Dialysis today Other status unchanged June 30: Due for dialysis tomorrow Remains intubated on ventilator Labs and medication reviewed Discussed with SHANIQUE Max from renal standpoint of view June 29: Dialyzed yesterday Due for dialysis tomorrow Stable from renal standpoint to view Keeps failing weaning process June 28: Patient due for dialysis today Stable from renal standpoint to view Continue per consultants June 27: Labs reviewed Due due for dialysis June 28 Discussed with SHANIQUE Dick Continue per consultants Remains intubated on ventilator June 26 Labs reviewed Dialyzed yesterday Started on weaning today Continue to monitor renal parameters June 25: On dialysis now Potassium supplement implemented Continue per consultants Next dialysis June 27June 15: Status unchanged Dialyzed yesterday will dialyze again tomorrow Potassium supplements given Discussed with RN June 14: Due dialysis today Status: Remains intubated on ventilator June 22: Status unchanged Dialyzed yesterday and duefordialysistomorrow Serum sodium stable today June 21 Remains intubated on ventilator Due dialysis today Emphasized high sodium bath for dialysis June 20: Remains intubated on ventilator Dialyzed June 19 next dialysis June 21 Serum sodium 128, will give 250 cc 3% saline Remains full code Discussed with RN Iron panel ordered June 19: Discussed with RN. Patient due for dialysis today. Continue pulmonary support. Remains full code. June 18: Patient dialyzed yesterday June 17 Serum sodium improved but still low Arrange for dialysis tomorrow June 19 Continue per consultants June 17: Due for dialysis today Today's lab reviewed, low serum sodium noted, Emphasized on high sodium bath to dialysis nurse Discussed with SHANIQUE Yuen June 16: Dialyzed yesterday Remains intubated Labs reviewed, serum sodium 131 Plan to dialyze tomorrow June 17 with high sodium bath Discussed with SHANIQUE Yuen June 6: Due for dialysis today Labs reviewed Discussed with RN Transfuse 1 unit of packed RBCs today for low hemoglobin of 7.1 June 5: Blood pressure well maintained Receive dialysis June 13 next hemodialysis June 15June 4: Discussed with RN in ICU Patient did not receive proper dialysis yesterday due to dialysis catheter malfunction Catheter to be adjusted today and dialyzed to be resumed today Continue per consultants Positive for COVID 28 June 2: Patient now intubated on mechanical ventilation Discussed with SHANIQUE Yuen, today June 12 Patient received dialysis yesterday June 10 next hemodialysis June 12 Blood pressure better maintained Today's labs reviewed Continue per consultants Previously patient received dialysis last evening June 05, next dialysis June 07 which was incomplete due to patient's hypotension Will start on midodrine for blood pressure support. Meanwhile continue other pressors as needed Previously Patient is doing poorly, septic, white blood cells are rising, Hypotension somewhat improved We will keep n.p.o. , NG tube for medications, and change medication to IV as needed Patient remains full code Monitor vancomycin level Previously: Patient pulled out his femoral catheter yesterday June 03 which was reinserted by Dr. Mast Patient scheduled for dialysis again June 04, which again was not done due to dialysis nurse citing catheter malfunction Meanwhile continue management per ID, pulmonary , and psych. Meanwhile white blood cell count is rising. Patient blood pressure borderline low. Will check ABG Previously May 31 : I believe patient need dialysis treatment He however needs to competency assessment if can make decisions or not I will communicate with Dr. Mulligan Previously: Per pulmonary and ID advice Adjust blood pressure medication Renal diet Anemia work-up 2D echocardiogram refused Kidney ultrasound refused Jules catheter Urine studies Per orders Subjective ROS Limited/Unobtainable: Yes Objective Objective Last 24 Hour Vital Signs Date Time Temp Pulse Resp B/P (MAP) Pulse Ox O2 Delivery O2 Flow Rate FiO2 07/09/19 10:49 104 27 100 Mechanical Ventilator 30 102 26 30 07/09/19 10:00 105 17 100 07/09/19 10:00 105 17 111/69 (83) 100 07/09/19 09:45 108 14 89/57 (68) 100 07/09/19 09:45 108 14 89/57 (68) 100 07/09/19 09:30 112 24 112/68 (83) 100 07/09/19 09:30 112 24 112/68 (83) 100 07/09/19 09:15 128/71 (90) 07/09/19 09:15 128/71 (90) 07/09/19 09:00 124/71 (88) 07/09/19 09:00 124/71 (88) 07/09/19 08:45 107 26 93/70 (78) 100 07/09/19 08:45 107 26 93/70 (78) 100 07/09/19 08:30 112 27 135/73 (93) 100 07/09/19 08:30 112 27 135/73 (93) 100 07/09/19 08:15 106 1 81/55 (64) 100 07/09/19 08:15 106 1 81/55 (64) 100 07/09/19 08:00 101.0 07/09/19 08:00 30 07/09/19 08:00 114 6 122/68 (86) 100 07/09/19 08:00 Mechanical Ventilator 07/09/19 08:00 114 6 122/68 (86) 100 07/09/19 08:00 119 07/09/19 07:00 117 27 100 Mechanical Ventilator 30 115 29 30 07/09/19 07:00 27 132/73 Mechanical Ventilator 30 07/09/19 07:00 116 27 128/84 (99) 100 07/09/19 06:30 114 27 07/09/19 06:30 114 27 132/73 (92) 100 07/09/19 06:00 23 130/69 Mechanical Ventilator 30 07/09/19 06:00 112 23 130/69 (89) 100 07/09/19 05:30 109 24 123/74 (90) 100 07/09/19 05:00 106 25 107/60 (76) 100 07/09/19 05:00 25 107/60 Mechanical Ventilator 30 07/09/19 04:30 106 22 124/72 (89) 100 07/09/19 04:00 108 07/09/19 04:00 Mechanical Ventilator 07/09/19 04:00 27 120/78 Mechanical Ventilator 30 07/09/19 04:00 99.2 108 23 120/78 (92) 100 07/09/19 04:00 30 07/09/19 03:30 103 26 133/74 (93) 100 07/09/19 03:12 97 26 100 Mechanical Ventilator 30 97 28 30 07/09/19 03:00 111 27 140/75 (96) 100 07/09/19 03:00 27 140/75 Mechanical Ventilator 07/09/19 02:30 109 27 135/71 (92) 100 07/09/19 02:00 26 127/77 Mechanical Ventilator 30 07/09/19 02:00 110 26 127/77 (94) 100 07/09/19 01:30 105 28 139/76 (97) 100 07/09/19 01:00 109 26 141/72 (95) 100 07/09/19 01:00 26 141/72 Mechanical Ventilator 30 07/09/19 00:30 109 26 145/84 (104) 100 07/09/19 00:00 111 07/09/19 00:00 Mechanical Ventilator 07/09/19 00:00 26 151/76 Mechanical Ventilator 30 07/09/19 00:00 98.9 111 24 151/76 (101) 100 07/09/19 00:00 30 07/08/19 23:30 108 27 146/76 (99) 100 07/08/19 23:00 108 26 132/75 (94) 100 07/08/19 23:00 26 132/75 Mechanical Ventilator 30 07/08/19 23:00 146/76 5/28/20 22:56 109 26 100 Mechanical Ventilator 30 105 28 30 07/08/19 22:30 107 24 116/85 (95) 100 07/08/19 22:00 108 25 130/72 (91) 100 07/08/19 22:00 25 130/72 Mechanical Ventilator 30 07/08/19 21:30 104 26 102/71 (81) 100 07/08/19 21:00 98 27 133/86 (102) 100 07/08/19 21:00 26 133/86 Mechanical Ventilator 30 07/08/19 20:30 101 26 138/76 (96) 100 07/08/19 20:00 Mechanical Ventilator 07/08/19 20:00 28 108/69 Mechanical Ventilator 30 07/08/19 20:00 30 07/08/19 20:00 98.9 105 28 108/69 (82) 100 07/08/19 19:39 100 07/08/19 19:30 105 26 112/63 (79) 100 07/08/19 19:02 102 28 100 Mechanical Ventilator 30 105 28 30 07/08/19 19:00 104 26 111/69 (83) 100 07/08/19 19:00 27 111/69 Mechanical Ventilator 30 07/08/19 18:00 95 24 115/65 (82) 100 07/08/19 18:00 26 104/63 Mechanical Ventilator 30 07/08/19 17:30 99.0 95 26 88/55 (66) 100 07/08/19 17:00 26 116/70 Mechanical Ventilator 30 07/08/19 17:00 99 26 116/70 (85) 100 07/08/19 16:30 108 23 126/75 (92) 100 07/08/19 16:00 30 07/08/19 16:00 110 25 138/82 (100) 100 07/08/19 16:00 Mechanical Ventilator 07/08/19 16:00 26 138/82 Mechanical Ventilator 30 07/08/19 15:30 112 26 116/79 (91) 100 07/08/19 15:23 117 07/08/19 15:01 113 27 100 Mechanical Ventilator 30 115 26 30 07/08/19 15:00 26 86/66 Mechanical Ventilator 30 07/08/19 15:00 112 26 86/66 (73) 95 07/08/19 14:00 119 26 121/76 (91) 98 07/08/19 14:00 26 121/76 Mechanical Ventilator 30 07/08/19 13:30 114 15 83/58 (66) 98 07/08/19 13:00 119 26 81/58 (66) 96 07/08/19 13:00 26 101/84 Mechanical Ventilator 30 07/08/19 12:30 99.3 139 18 128/84 (99) 98 07/08/19 12:00 Mechanical Ventilator 07/08/19 12:00 138 31 116/91 (99) 91 07/08/19 12:00 129 07/08/19 12:00 36 116/91 Mechanical Ventilator 30 07/08/19 12:00 30 07/08/19 11:30 142 51 141/89 (106) 93 Intake and Output 07/08/19 07/09/19 19:00 07:00 Intake Total 374 ml 190 ml Output Total 0 ml 0 ml Balance 374 ml 190 ml IV Total 154 ml 60 ml Tube Feeding 120 ml 80 ml Other 100 ml 50 ml Output Urine Total 0 ml 0 ml Laboratory Tests 07/09/19 04:15: White Blood Count 18.2H, Red Blood Count 3.23L, Hemoglobin 9.4L, Hematocrit 29.8L, Mean Corpuscular Volume 92, Mean Corpuscular Hemoglobin 29.1, Mean Corpuscular Hemoglobin Concent 31.5L, Red Cell Distribution Width 16.2H, Platelet Count 506H, Mean Platelet Volume 5.7L, Neutrophils (%) (Auto) , Lymphocytes (%) (Auto) , Monocytes (%) (Auto) , Eosinophils (%) (Auto) , Basophils (%) (Auto) , Differential Total Cells Counted 100, Neutrophils % ( Manual) 94H, Lymphocytes % (Manual) 3L, Monocytes % (Manual) 2, Eosinophils % ( Manual) 1, Basophils % (Manual) 0, Band Neutrophils 0, Platelet Estimate IncreasedH, Platelet Morphology Normal, Anisocytosis 1+, Sodium Level 143, Potassium Level 4.7, Chloride Level 100, Carbon Dioxide Level 26, Anion Gap 17H , Blood Urea Nitrogen 86H, Creatinine 11.8H, Estimat Glomerular Filtration Rate 4.3, Glucose Level 180H, Calcium Level 10.0, Phosphorus Level 6.5H, Magnesium Level 3.1H, Total Bilirubin 0.5, Aspartate Amino Transf (AST/SGOT) 34, Alanine Aminotransferase (ALT/SGPT) 21, Alkaline Phosphatase 94, C-Reactive Protein, Quantitative 6.3H, Pro-B-Type Natriuretic Peptide 20116A, Total Protein 10.1H, Albumin 3.3L, Globulin 6.8, Albumin/Globulin Ratio 0.5L Height (Feet): 6 Height (Inches): 1.00 Weight (Pounds): 164 General Appearance: no apparent distress EENT: other - Trached Cardiovascular: tachycardia Respiratory/Chest: decreased breath sounds - connected to vent Abdomen: distended Objective No change Mic Cole MD July 09, 2019 11:06
--- NOTE | 2019-07-09 12:30 | Hematology/Onc Progress Note ---
Assessment/Plan Assessment/Plan Assessment and Recs: # Anemia of chronic disease, likely related ot underlying kidney disease has COIVD19++++++ --> hgb trend 9-->8-->7.3-->7.9-->6.8->9.5-->10->8.3-->7.7-->7.1-->8.9->8.8->7.7 -->8.1 ->7.9-->7.7 -->8.2-->8.1 -->7.9-->8.5 -->9->9.2 --> transfuse as needed, hgb goal >7 --> no evidence of hemolysis --> peripheral smear has been reviewed --> epogen started 3 x a week ==>> transfuse 06/08, 06/15, # Leukocytosis likely related to suspected COVID-19 virus infection --> completed plaquenil --> trend smear as needed --> initially 4-->11-->14.5-->21-->26-->21->24--.28-->23-->19-->16.2-->21--> 11.2 -->12.5-->12.3-->12.4 --> pulm is aware --> on abx cefepime/vanc->zosyn/vanc->dom/vanc --> pressors as needed --> 06/27 covid 19++ # Thrombocytopenia/Lymphopenia --> likely related to covid19 --> plt 129k-->186k-->251-->285-->384 -->430-->539-->515 --> abx # Respiratory failure with covid19+ --> s/p vent/trach --> weaning # Possible Pneumonia --> abx completed # Cardiomegaly # Transaminitis with Elevated AST # COPD # Chronic Kidney Disease --> per renal hd --> s/p right femoral cath 07/02 # Hypertension # Dvt ppx lovenox Appreciate consultation and ernesto Rn Subjective Allergies: Coded Allergies: No Known Allergies (Unverified , 05/28/19) All Systems: reviewed and negative except above Subjective 06/01 nv, extremely agitated, not allowing labs draws, no night sweats, cbc ordered 06/02 confused, restraints, on abx and plaquenil, hgb 7.9, nrb 15 L 06/03 is with nonrebreather, but not compliant, remains confused 06/05 no bleeding, labs noted, no major bleeding, otherwise comfortable 06/06 labs reviewed, no bleeding, meds noted, no night sweats, on levo and nonrebreather 06/07 labs noted, no bleeding, meds reviewed, no bleeding, wbc higher 06/08 to get 2 units prbc, no night sweats, meds reviewed 06/09 is on cefepime and vanc, labs noted, ernesto Rn, no bleeding 06/10 no major changes, labs reviewed, wbc 28k, on abx, cefepime 06/12 remains in icu, labs noted, no night sweats or bleeding 06/13 sluggish pupils, remains agitated, per psych, no bleding, on vent, wbc sitll high 06/14 still confused, remains on vent, with ng, running nepro, on pressors 06/15 icu, febrile, non verbal, hgb 7.1, blood pending, completed plaq 06/16 remains in the icu, nonverbal, plan for hd tomorrow, ernesto rn 06/17 in icu, on pressor, nonverbal, on abx, no bleeding 06/19 no bleeding, nonverbal in icu, hgb is 7.7 06/20 on zosyn, tube feeds, vent, labs noted, in icu, nv 06/21 gettng hd as per renal, in icu, nv, no bleeding, tfs 06/22 icu, cxr with slight improvement, cooling blanket, weaning today 06/23 wewaning, in icu, on vent, abx, and pressors as needed, labs noted 06/24 failed weaning, off abx, completed plaquenil, hgb 8.1 06/26 icu, weaning for this am, afebrile, hgb 8 06/27 in icu, remains comotose, weaning started on peep, no night sweats 06/28 weaning today, off abx, restraints, no distress, h/h stable 06/29 covid 19+, failed weaning, no blood transfusion needed 06/30 icu, on vent, labs reviewed, no distress 07/01 in icu, may need trach, remains on hd per renal, labs noted 07/02 s/p right fem cath, failed wean, no new orders, h/h stable 07/03 is somewhat more responsive, on abx, no bleeding, weaning and HD today 07/04 hd as per renal, weaning off vent, no bleeding today 07/05 obtunded, no bleding overnight, with hd for tomorrow noted, vanc 07/08 no events, remains with trach/vent, dw Rn, no bleeding, cbc is noted Objective Objective Current Medications Medications (Trade) Dose Ordered Sig/Anthony Route PRN Reason Start Time Stop Time Status Last Admin Dose Admin Acetaminophen (Tylenol) 650 mg Q4H PRN NG Temp >100.5 06/13/19 11:00 07/13/19 10:59 07/05/19 08:15 Albuterol Sulfate (Proventil MDI) 2 puff Q4HRT INH 06/06/19 23:00 08/30/19 18:59 07/09/19 10:49 Chlorhexidine Gluconate (Michelle-Hex 2%) 1 applic DAILY@2000 TOPIC 06/07/19 20:00 09/05/19 19:59 07/08/19 20:23 Dextrose (Dextrose 50%) 25 ml Q30M PRN IV Hypoglycemia 06/20/19 19:30 09/18/19 19:29 Dextrose (Dextrose 50%) 50 ml Q30M PRN IV Hypoglycemia 06/20/19 19:30 09/18/19 19:29 Dopamine HCl/ Dextrose 250 ml @ 0 mls/hr Q24H PRN IV For hypotension 06/13/19 08:15 09/11/19 08:14 Enoxaparin Sodium (Lovenox) 30 mg DAILY SUBQ 06/07/19 09:00 08/27/19 08:59 07/07/19 08:15 Epoetin Aftab (Epoetin Aftab(ESRD on dialysis)) 10,000 unit FRI-WED-FRI SUBQ 06/07/19 21:00 08/31/19 20:59 07/07/19 21:30 Fentanyl Citrate 250 ml @ 0 mls/hr Q24H IV 06/24/19 06:00 09/22/19 05:59 07/08/19 10:00 Hydralazine HCl (Apresoline) 10 mg Q4H PRN IV Blood pressure over 160 systol 06/07/19 10:15 09/05/19 10:14 Insulin Aspart (NovoLOG) EVERY 6 HOURS SUBQ 06/21/19 00:00 09/19/19 00:00 07/08/19 18:59 Meropenem 500 mg/ Sodium Chloride 55 ml @ 110 mls/hr Q24H IVPB 07/09/19 18:00 07/14/19 17:59 Metoclopramide HCl (Reglan) 5 mg Q8H PRN IVP Nausea & Vomiting 06/18/19 12:00 07/18/19 11:59 06/19/19 00:50 Midodrine (Pro-Amatine) 10 mg THREE TIMES A DAY NG 06/09/19 13:00 09/07/19 12:59 07/08/19 18:12 Norepinephrine Bitartrate 8 mg/ Dextrose 283 ml @ 0 mls/hr Q24H IV 06/23/19 23:00 07/23/19 22:59 06/25/19 14:38 Pantoprazole (Protonix) 40 mg DAILY IVP 06/19/19 09:00 07/19/19 08:59 07/09/19 09:19 Sevelamer Carbonate (Renvela) 1,600 mg Q8HR NG 06/25/19 22:00 09/05/19 12:59 07/08/19 21:21 Vancomycin HCl (Vanco rx to dose) 1 ea DAILY PRN MISC Per rx protocol 07/01/19 11:00 07/31/19 10:59 Last 24 Hour Vital Signs Date Time Temp Pulse Resp B/P (MAP) Pulse Ox O2 Delivery O2 Flow Rate FiO2 07/09/19 11:15 103 16 112/72 (85) 100 07/09/19 11:00 103 0 100 07/09/19 11:00 103 0 100 07/09/19 10:49 104 27 100 Mechanical Ventilator 30 102 26 30 07/09/19 10:00 105 17 100 07/09/19 10:00 105 17 111/69 (83) 100 07/09/19 09:45 108 14 89/57 (68) 100 07/09/19 09:45 108 14 89/57 (68) 100 07/09/19 09:30 112 24 112/68 (83) 100 07/09/19 09:30 112 24 112/68 (83) 100 07/09/19 09:15 128/71 (90) 07/09/19 09:15 128/71 (90) 07/09/19 09:00 124/71 (88) 07/09/19 09:00 124/71 (88) 07/09/19 08:45 107 26 93/70 (78) 100 07/09/19 08:45 107 26 93/70 (78) 100 07/09/19 08:30 112 27 135/73 (93) 100 07/09/19 08:30 112 27 135/73 (93) 100 07/09/19 08:15 106 1 81/55 (64) 100 07/09/19 08:15 106 1 81/55 (64) 100 07/09/19 08:00 101.0 07/09/19 08:00 30 07/09/19 08:00 114 6 122/68 (86) 100 07/09/19 08:00 Mechanical Ventilator 07/09/19 08:00 114 6 122/68 (86) 100 07/09/19 08:00 119 07/09/19 07:00 117 27 100 Mechanical Ventilator 30 115 29 30 07/09/19 07:00 27 132/73 Mechanical Ventilator 30 07/09/19 07:00 116 27 128/84 (99) 100 07/09/19 06:30 114 27 07/09/19 06:30 114 27 132/73 (92) 100 07/09/19 06:00 23 130/69 Mechanical Ventilator 30 07/09/19 06:00 112 23 130/69 (89) 100 07/09/19 05:30 109 24 123/74 (90) 100 07/09/19 05:00 106 25 107/60 (76) 100 07/09/19 05:00 25 107/60 Mechanical Ventilator 30 07/09/19 04:30 106 22 124/72 (89) 100 07/09/19 04:00 108 07/09/19 04:00 Mechanical Ventilator 07/09/19 04:00 27 120/78 Mechanical Ventilator 30 07/09/19 04:00 99.2 108 23 120/78 (92) 100 5/29/20 04:00 30 07/09/19 03:30 103 26 133/74 (93) 100 07/09/19 03:12 97 26 100 Mechanical Ventilator 30 97 28 30 07/09/19 03:00 111 27 140/75 (96) 100 07/09/19 03:00 27 140/75 Mechanical Ventilator 30 07/09/19 02:30 109 27 135/71 (92) 100 07/09/19 02:00 26 127/77 Mechanical Ventilator 30 07/09/19 02:00 110 26 127/77 (94) 100 07/09/19 01:30 105 28 139/76 (97) 100 07/09/19 01:00 109 26 141/72 (95) 100 07/09/19 01:00 26 141/72 Mechanical Ventilator 30 07/09/19 00:30 109 26 145/84 (104) 100 07/09/19 00:00 111 07/09/19 00:00 Mechanical Ventilator 07/09/19 00:00 26 151/76 Mechanical Ventilator 30 07/09/19 00:00 98.9 111 24 151/76 (101) 100 07/09/19 00:00 30 07/08/19 23:30 108 27 146/76 (99) 100 07/08/19 23:00 108 26 132/75 (94) 100 07/08/19 23:00 26 132/75 Mechanical Ventilator 30 07/08/19 23:00 146/76 07/08/19 22:56 109 26 100 Mechanical Ventilator 30 105 28 30 07/08/19 22:30 107 24 116/85 (95) 100 07/08/19 22:00 108 25 130/72 (91) 100 07/08/19 22:00 25 130/72 Mechanical Ventilator 30 07/08/19 21:30 104 26 102/71 (81) 100 07/08/19 21:00 98 27 133/86 (102) 100 07/08/19 21:00 26 133/86 Mechanical Ventilator 30 07/08/19 20:30 101 26 138/76 (96) 100 07/08/19 20:00 Mechanical Ventilator 07/08/19 20:00 28 108/69 Mechanical Ventilator 30 07/08/19 20:00 30 07/08/19 20:00 98.9 105 28 108/69 (82) 100 07/08/19 19:39 100 07/08/19 19:30 105 26 112/63 (79) 100 07/08/19 19:02 102 28 100 Mechanical Ventilator 30 105 28 30 07/08/19 19:00 104 26 111/69 (83) 100 07/08/19 19:00 27 111/69 Mechanical Ventilator 30 07/08/19 18:00 95 24 115/65 (82) 100 07/08/19 18:00 26 104/63 Mechanical Ventilator 30 07/08/19 17:30 99.0 95 26 88/55 (66) 100 07/08/19 17:00 26 116/70 Mechanical Ventilator 30 07/08/19 17:00 99 26 116/70 (85) 100 07/08/19 16:30 108 23 126/75 (92) 100 07/08/19 16:00 30 07/08/19 16:00 110 25 138/82 (100) 100 07/08/19 16:00 Mechanical Ventilator 07/08/19 16:00 26 138/82 Mechanical Ventilator 30 07/08/19 15:30 112 26 116/79 (91) 100 07/08/19 15:23 117 07/08/19 15:01 113 27 100 Mechanical Ventilator 30 115 26 30 07/08/19 15:00 26 86/66 Mechanical Ventilator 30 07/08/19 15:00 112 26 86/66 (73) 95 07/08/19 14:00 119 26 121/76 (91) 98 07/08/19 14:00 26 121/76 Mechanical Ventilator 30 07/08/19 13:30 114 15 83/58 (66) 98 07/08/19 13:00 119 26 81/58 (66) 96 07/08/19 13:00 26 101/84 Mechanical Ventilator 30 07/08/19 12:30 99.3 139 18 128/84 (99) 98 07/08/19 12:00 Mechanical Ventilator 07/08/19 12:00 138 31 116/91 (99) 91 07/08/19 12:00 129 07/08/19 12:00 36 116/91 Mechanical Ventilator 30 07/08/19 12:00 30 07/08/19 11:30 142 51 141/89 (106) 93 07/08/19 11:03 123 26 100 Mechanical Ventilator 30 115 26 30 07/08/19 11:00 126 29 102/88 (93) 100 07/08/19 11:00 26 102/88 Mechanical Ventilator 30 07/08/19 10:45 122 26 91/60 (70) 100 07/08/19 10:30 130 26 82/63 (69) 100 07/08/19 10:15 142 26 115/83 (94) 100 07/08/19 10:11 128 15 100 07/08/19 10:10 130 15 100 07/08/19 10:00 99.8 143 120/78 (92) 07/08/19 10:00 26 119/78 Mechanical Ventilator 30 07/08/19 10:00 30 07/08/19 10:00 Mechanical Ventilator 07/08/19 09:02 100 21 84/60 (68) 100 07/08/19 09:00 16 88/60 Mechanical Ventilator 30 07/08/19 09:00 100 20 88/60 (69) 100 07/08/19 08:45 101 16 115/79 (91) 100 07/08/19 08:30 98 21 105/59 (74) 100 07/08/19 08:00 97 07/08/19 08:00 20 85/59 Mechanical Ventilator 30 07/08/19 08:00 30 07/08/19 08:00 99.5 101 19 85/59 (68) 100 07/08/19 08:00 Mechanical Ventilator 07/08/19 07:30 104 23 117/85 (96) 100 07/08/19 07:19 104 26 100 Mechanical Ventilator 30 102 26 30 07/08/19 07:00 104 17 118/81 (93) 100 07/08/19 07:00 17 118/81 Mechanical Ventilator 30 07/08/19 06:30 100 26 85/61 (69) 100 07/08/19 06:30 100 26 07/08/19 06:00 26 131/76 Mechanical Ventilator 30 07/08/19 06:00 101 26 131/76 (94) 100 07/08/19 05:30 97 26 95/62 (73) 100 07/08/19 05:00 25 82/56 Mechanical Ventilator 30 07/08/19 05:00 101 25 82/56 (65) 100 07/08/19 04:30 104 26 84/55 (65) 100 07/08/19 04:15 110 27 103/63 (76) 100 07/08/19 04:00 Mechanical Ventilator 07/08/19 04:00 30 07/08/19 04:00 26 105/68 Mechanical Ventilator 30 07/08/19 04:00 98.1 108 19 105/68 (80) 100 07/08/19 03:57 108 07/08/19 03:45 107 21 129/81 (97) 100 07/08/19 03:30 103 22 80/52 (61) 100 07/08/19 03:00 16 107/72 Mechanical Ventilator 30 07/08/19 03:00 99 16 107/72 (84) 100 07/08/19 02:53 98 26 100 Mechanical Ventilator 30 96 26 30 07/08/19 02:30 94 22 85/50 (62) 100 07/08/19 02:00 26 91/26 Mechanical Ventilator 30 07/08/19 02:00 93 26 91/62 (72) 100 07/08/19 01:30 93 26 88/56 (67) 100 07/08/19 01:00 102 26 121/77 (92) 100 07/08/19 01:00 26 121/77 Mechanical Ventilator 30 07/08/19 00:40 94 26 106/64 (78) 100 07/08/19 00:30 97 26 76/55 (62) 100 07/08/19 00:16 96 26 84/55 (65) 100 07/08/19 00:00 94 07/08/19 00:00 26 110/73 Mechanical Ventilator 30 07/08/19 00:00 30 07/08/19 00:00 Mechanical Ventilator 07/08/19 00:00 98.6 94 26 110/73 (85) 100 07/07/19 23:45 92 26 89/59 (69) 100 07/07/19 23:41 92 26 85/56 (66) 100 07/07/19 23:34 96 26 77/56 (63) 100 07/07/19 23:30 99 26 84/57 (66) 100 07/07/19 23:15 98 26 130/75 (93) 100 07/07/19 23:00 100 26 98/57 (71) 100 07/07/19 23:00 26 98/57 Mechanical Ventilator 30 07/07/19 23:00 98/57 07/07/19 22:00 26 98/57 Mechanical Ventilator 30 07/07/19 22:00 98 26 81/57 (65) 100 07/07/19 21:46 91 26 100 Mechanical Ventilator 30 90 26 30 07/07/19 21:45 90 26 98/74 (82) 100 07/07/19 21:30 84 26 96/64 (75) 100 07/07/19 21:00 90 19 102/62 (75) 100 07/07/19 21:00 19 102/62 Mechanical Ventilator 30 07/07/19 20:30 97 12 103/56 (72) 100 07/07/19 20:00 30 07/07/19 20:00 98.8 110 29 128/83 (98) 100 07/07/19 20:00 Mechanical Ventilator 07/07/19 20:00 29 128/83 Mechanical Ventilator 30 07/07/19 19:44 115 33 100 Mechanical Ventilator 30 117 33 30 07/07/19 19:30 115 07/07/19 19:00 31 150/86 Mechanical Ventilator 30 07/07/19 19:00 115 31 150/86 (107) 100 07/07/19 18:45 113 21 133/73 (93) 100 07/07/19 18:30 104 25 98/64 (75) 100 07/07/19 18:15 104 26 90/70 (77) 100 07/07/19 18:00 113 22 106/70 (82) 100 07/07/19 18:00 26 106/70 Mechanical Ventilator 30 07/07/19 17:45 109 20 130/85 (100) 100 07/07/19 17:30 103 0 93/72 (79) 100 07/07/19 17:30 20 93/72 Mechanical Ventilator 30 07/07/19 17:15 107 21 145/82 (103) 100 07/07/19 17:00 104 15 101/66 (78) 100 07/07/19 17:00 20 145/82 30 07/07/19 16:45 104 11 89/65 (73) 100 07/07/19 16:30 108 21 128/78 (95) 100 07/07/19 16:15 102 17 118/71 (87) 100 07/07/19 16:00 99.4 106 1 99/65 (76) 100 5/27/20 16:00 Mechanical Ventilator 07/07/19 16:00 20 118/71 Mechanical Ventilator 30 07/07/19 16:00 115 07/07/19 15:45 114 31 126/76 (93) 100 07/07/19 15:30 108 25 127/74 (91) 100 07/07/19 15:15 107 23 114/75 (88) 100 07/07/19 15:10 108 28 100 Mechanical Ventilator 30 108 28 30 07/07/19 15:00 21 139/83 Mechanical Ventilator 30 07/07/19 15:00 100 15 139/83 (101) 100 07/07/19 14:45 101 0 91/66 (74) 100 07/07/19 14:30 107 20 126/78 (94) 100 07/07/19 14:15 107 19 132/72 (92) 100 07/07/19 14:09 34 110/80 30 07/07/19 14:00 105 11 110/80 (90) 100 07/07/19 13:45 106 5 98/63 (75) 100 07/07/19 13:30 109 9 114/79 (91) 100 07/07/19 13:15 120 27 138/82 (100) 100 07/07/19 13:00 107 21 128/79 (95) 100 07/07/19 12:52 108 23 113/69 (84) 100 07/07/19 12:45 111 19 123/74 (90) 100 07/07/19 12:30 114 24 105/76 (86) 100 Intake and Output 07/08/19 07/09/19 19:00 07:00 Intake Total 374 ml 190 ml Output Total 0 ml 0 ml Balance 374 ml 190 ml IV Total 154 ml 60 ml Tube Feeding 120 ml 80 ml Other 100 ml 50 ml Output Urine Total 0 ml 0 ml Labs Test 07/07/19 03:30 07/07/19 09:59 07/08/19 04:44 07/09/19 04:15 White Blood Count 15.2 K/UL (4.8-10.8) 16.4 K/UL (4.8-10.8) 18.2 K/UL (4.8-10.8) Red Blood Count 3.34 M/UL (4.70-6.10) 3.33 M/UL (4.70-6.10) 3.23 M/UL (4.70-6.10) Hemoglobin 9.7 G/DL (14.2-18.0) 9.5 G/DL (14.2-18.0) 9.4 G/DL (14.2-18.0) Hematocrit 30.7 % (42.0-52.0) 30.5 % (42.0-52.0) 29.8 % (42.0-52.0) Mean Corpuscular Volume 92 FL (80-99) 92 FL (80-99) 92 FL (80-99) Mean Corpuscular Hemoglobin 28.9 PG (27.0-31.0) 28.6 PG (27.0-31.0) 29.1 PG (27.0-31.0) Mean Corpuscular Hemoglobin Concent 31.5 G/DL (32.0-36.0) 31.2 G/DL (32.0-36.0) 31.5 G/DL (32.0-36.0) Red Cell Distribution Width 16.6 % (11.6-14.8) 16.7 % (11.6-14.8) 16.2 % (11.6-14.8) Platelet Count 462 K/UL (150-450) 506 K/UL (150-450) 506 K/UL (150-450) Mean Platelet Volume 6.3 FL (6.5-10.1) 6.0 FL (6.5-10.1) 5.7 FL (6.5-10.1) Neutrophils (%) (Auto) 77.0 % (45.0-75.0) 77.8 % (45.0-75.0) % (45.0-75.0) Lymphocytes (%) (Auto) 13.3 % (20.0-45.0) 12.4 % (20.0-45.0) % (20.0-45.0) Monocytes (%) (Auto) 6.8 % (1.0-10.0) 7.0 % (1.0-10.0) % (1.0-10.0) Eosinophils (%) (Auto) 2.0 % (0.0-3.0) 2.1 % (0.0-3.0) % (0.0-3.0) Basophils (%) (Auto) 0.9 % (0.0-2.0) 0.8 % (0.0-2.0) % (0.0-2.0) Prothrombin Time 12.1 SEC (9.30-11.50) Prothromb Time International Ratio 1.1 (0.9-1.1) Activated Partial Thromboplast Time 25 SEC (23-33) Sodium Level 141 MMOL/L (136-145) 145 MMOL/L (136-145) 143 MMOL/L (136-145) Potassium Level 4.2 MMOL/L (3.5-5.1) 4.3 MMOL/L (3.5-5.1) 4.7 MMOL/L (3.5-5.1) Chloride Level 99 MMOL/L (98-107) 100 MMOL/L (98-107) 100 MMOL/L (98-107) Carbon Dioxide Level 28 MMOL/L (21-32) 27 MMOL/L (21-32) 26 MMOL/L (21-32) Anion Gap 14 mmol/L (5-15) 18 mmol/L (5-15) 17 mmol/L (5-15) Blood Urea Nitrogen 56 mg/dL (7-18) 72 mg/dL (7-18) 86 mg/dL (7-18) Creatinine 8.1 MG/DL (0.55-1.30) 9.9 MG/DL (0.55-1.30) 11.8 MG/DL (0.55-1.30) Estimat Glomerular Filtration Rate 6.7 mL/min (>60) 5.3 mL/min (>60) 4.3 mL/min (>60) Glucose Level 215 MG/DL (74-106) 188 MG/DL (74-106) 180 MG/DL (74-106) Calcium Level 9.7 MG/DL (8.5-10.1) 9.9 MG/DL (8.5-10.1) 10.0 MG/DL (8.5-10.1) Phosphorus Level 5.2 MG/DL (2.5-4.9) 5.6 MG/DL (2.5-4.9) 6.5 MG/DL (2.5-4.9) Magnesium Level 2.8 MG/DL (1.8-2.4) 2.9 MG/DL (1.8-2.4) 3.1 MG/DL (1.8-2.4) Total Bilirubin 0.4 MG/DL (0.2-1.0) 0.5 MG/DL (0.2-1.0) 0.5 MG/DL (0.2-1.0) Aspartate Amino Transf (AST/SGOT) 34 U/L (15-37) 38 U/L (15-37) 34 U/L (15-37) Alanine Aminotransferase (ALT/SGPT) 15 U/L (12-78) 19 U/L (12-78) 21 U/L (12-78) Alkaline Phosphatase 107 U/L (46-116) 98 U/L (46-116) 94 U/L (46-116) Total Protein 10.1 G/DL (6.4-8.2) 10.0 G/DL (6.4-8.2) 10.1 G/DL (6.4-8.2) Albumin 3.1 G/DL (3.4-5.0) 3.0 G/DL (3.4-5.0) 3.3 G/DL (3.4-5.0) Globulin 7.0 g/dL 7.0 g/dL 6.8 g/dL Albumin/Globulin Ratio 0.4 (1.0-2.7) 0.4 (1.0-2.7) 0.5 (1.0-2.7) Arterial Blood pH 7.411 (7.350-7.450) Arterial Blood Partial Pressure CO2 42.3 mmHg (35.0-45.0) Arterial Blood Partial Pressure O2 107.3 mmHg (75.0-100.0) Arterial Blood HCO3 26.3 mmol/L (22.0-26.0) Arterial Blood Oxygen Saturation 97.9 % (95-100) Arterial Blood Base Excess 1.5 (-2-2) Kosta Test Positive C-Reactive Protein, Quantitative 7.2 mg/dL (0.00-0.90) 6.3 mg/dL (0.00-0.90) Pro-B-Type Natriuretic Peptide 70978 pg/mL (0-125) 37687 pg/mL (0-125) Differential Total Cells Counted 100 Neutrophils % (Manual) 94 % (45-75) Lymphocytes % (Manual) 3 % (20-45) Monocytes % (Manual) 2 % (1-10) Eosinophils % (Manual) 1 % (0-3) Basophils % (Manual) 0 % (0-2) Band Neutrophils 0 % (0-8) Platelet Estimate Increased Platelet Morphology Normal Anisocytosis 1+ Height (Feet): 6 Height (Inches): 1.00 Weight (Pounds): 164 Objective Sp02 EP Interpretation: reviewed General: nv, confused, sedated Heent: bilateral eye normal inspection, bilateral eye PERRL ++Ng Respiratory: normal breath sounds, no respiratory distress, intubated/vent +++ trach+++ Cardiovascular: regular rate, rhythm, no edema Gastrointestinal: normal inspection, soft, non-distended Rectal: deferred Musculoskeletal: normal range of motion, non-tender, R fem cath++ Neurologic: alert, motor strength/tone normal, sensory intact, responsive, speech normal Skin: Decubitus/Ulcer - See RN skin exam. : jamaal+ Greg Cabral MD July 09, 2019 12:30
--- NOTE | 2019-07-09 13:10 | Cardiac Electrophysiology PN ---
Assessment/Plan Assessment/Plan 1. Elevated troponin. Low level and flat due to renal failure. On Aspirin. EF 60 %. 2. S/P Septic shock. Off Levo 3. ESRD, on HD per Dr. Cole. 4. COVID-19 positive pneumonia. On the Vent with 30% Fio2. Fu by Dr. Mckeon. S/P Tracheostomy 07/08/19 5. MRSA carrier. 6. COPD. 7. Anemia. 8. Dysphagia, PEG pending DW RN Subjective Subjective Covid positive x 3 in isolation in ICU, on 30% Fio2, PEEP 5. Off pressors on midodrine. S/P Tracheostomy yesterday. Planned for PEG but no consent yet Objective Last 24 Hour Vital Signs Date Time Temp Pulse Resp B/P (MAP) Pulse Ox O2 Delivery O2 Flow Rate FiO2 07/09/19 12:00 30 07/09/19 12:00 Mechanical Ventilator 07/09/19 12:00 120 07/09/19 12:00 100.0 113 16 103/63 (76) 100 07/09/19 11:15 103 16 112/72 (85) 100 07/09/19 11:00 103 0 100 07/09/19 11:00 103 0 100 07/09/19 10:49 104 27 100 Mechanical Ventilator 30 102 26 30 07/09/19 10:00 105 17 100 07/09/19 10:00 105 17 111/69 (83) 100 07/09/19 09:45 108 14 89/57 (68) 100 07/09/19 09:45 108 14 89/57 (68) 100 07/09/19 09:30 112 24 112/68 (83) 100 07/09/19 09:30 112 24 112/68 (83) 100 07/09/19 09:15 128/71 (90) 07/09/19 09:15 128/71 (90) 07/09/19 09:00 124/71 (88) 07/09/19 09:00 124/71 (88) 07/09/19 08:45 107 26 93/70 (78) 100 07/09/19 08:45 107 26 93/70 (78) 100 07/09/19 08:30 112 27 135/73 (93) 100 07/09/19 08:30 112 27 135/73 (93) 100 07/09/19 08:15 106 1 81/55 (64) 100 07/09/19 08:15 106 1 81/55 (64) 100 07/09/19 08:01 119 07/09/19 08:00 101.0 07/09/19 08:00 30 07/09/19 08:00 114 6 122/68 (86) 100 07/09/19 08:00 Mechanical Ventilator 07/09/19 08:00 114 6 122/68 (86) 100 07/09/19 07:00 117 27 100 Mechanical Ventilator 30 115 29 30 07/09/19 07:00 27 132/73 Mechanical Ventilator 30 07/09/19 07:00 116 27 128/84 (99) 100 07/09/19 06:30 114 27 07/09/19 06:30 114 27 132/73 (92) 100 07/09/19 06:00 23 130/69 Mechanical Ventilator 30 07/09/19 06:00 112 23 130/69 (89) 100 07/09/19 05:30 109 24 123/74 (90) 100 07/09/19 05:00 106 25 107/60 (76) 100 07/09/19 05:00 25 107/60 Mechanical Ventilator 30 07/09/19 04:30 106 22 124/72 (89) 100 07/09/19 04:00 108 07/09/19 04:00 Mechanical Ventilator 07/09/19 04:00 27 120/78 Mechanical Ventilator 30 07/09/19 04:00 99.2 108 23 120/78 (92) 100 07/09/19 04:00 30 07/09/19 03:30 103 26 133/74 (93) 100 07/09/19 03:12 97 26 100 Mechanical Ventilator 30 97 28 30 07/09/19 03:00 111 27 140/75 (96) 100 07/09/19 03:00 27 140/75 Mechanical Ventilator 30 07/09/19 02:30 109 27 135/71 (92) 100 07/09/19 02:00 26 127/77 Mechanical Ventilator 30 07/09/19 02:00 110 26 127/77 (94) 100 07/09/19 01:30 105 28 139/76 (97) 100 07/09/19 01:00 109 26 141/72 (95) 100 07/09/19 01:00 26 141/72 Mechanical Ventilator 30 07/09/19 00:30 109 26 145/84 (104) 100 07/09/19 00:00 111 07/09/19 00:00 Mechanical Ventilator 07/09/19 00:00 26 151/76 Mechanical Ventilator 30 07/09/19 00:00 98.9 111 24 151/76 (101) 100 07/09/19 00:00 30 07/08/19 23:30 108 27 146/76 (99) 100 07/08/19 23:00 108 26 132/75 (94) 100 07/08/19 23:00 26 132/75 Mechanical Ventilator 30 07/08/19 23:00 146/76 07/08/19 22:56 109 26 100 Mechanical Ventilator 30 105 28 30 07/08/19 22:30 107 24 116/85 (95) 100 07/08/19 22:00 108 25 130/72 (91) 100 07/08/19 22:00 25 130/72 Mechanical Ventilator 30 07/08/19 21:30 104 26 102/71 (81) 100 07/08/19 21:00 98 27 133/86 (102) 100 07/08/19 21:00 26 133/86 Mechanical Ventilator 30 07/08/19 20:30 101 26 138/76 (96) 100 07/08/19 20:00 Mechanical Ventilator 07/08/19 20:00 28 108/69 Mechanical Ventilator 30 07/08/19 20:00 30 07/08/19 20:00 98.9 105 28 108/69 (82) 100 07/08/19 19:39 100 07/08/19 19:30 105 26 112/63 (79) 100 07/08/19 19:02 102 28 100 Mechanical Ventilator 30 105 28 30 07/08/19 19:00 104 26 111/69 (83) 100 07/08/19 19:00 27 111/69 Mechanical Ventilator 30 07/08/19 18:00 95 24 115/65 (82) 100 07/08/19 18:00 26 104/63 Mechanical Ventilator 30 07/08/19 17:30 99.0 95 26 88/55 (66) 100 07/08/19 17:00 26 116/70 Mechanical Ventilator 30 07/08/19 17:00 99 26 116/70 (85) 100 07/08/19 16:30 108 23 126/75 (92) 100 07/08/19 16:00 30 07/08/19 16:00 110 25 138/82 (100) 100 07/08/19 16:00 Mechanical Ventilator 07/08/19 16:00 26 138/82 Mechanical Ventilator 30 07/08/19 15:30 112 26 116/79 (91) 100 07/08/19 15:23 117 07/08/19 15:01 113 27 100 Mechanical Ventilator 30 115 26 30 07/08/19 15:00 26 86/66 Mechanical Ventilator 30 07/08/19 15:00 112 26 86/66 (73) 95 07/08/19 14:00 119 26 121/76 (91) 98 07/08/19 14:00 26 121/76 Mechanical Ventilator 30 07/08/19 13:30 114 15 83/58 (66) 98 Intake and Output 07/08/19 07/09/19 19:00 07:00 Intake Total 374 ml 190 ml Output Total 0 ml 0 ml Balance 374 ml 190 ml IV Total 154 ml 60 ml Tube Feeding 120 ml 80 ml Other 100 ml 50 ml Output Urine Total 0 ml 0 ml Laboratory Tests Test 07/09/19 04:15 White Blood Count 18.2 K/UL (4.8-10.8) H Red Blood Count 3.23 M/UL (4.70-6.10) L Hemoglobin 9.4 G/DL (14.2-18.0) L Hematocrit 29.8 % (42.0-52.0) L Mean Corpuscular Volume 92 FL (80-99) Mean Corpuscular Hemoglobin 29.1 PG (27.0-31.0) Mean Corpuscular Hemoglobin Concent 31.5 G/DL (32.0-36.0) L Red Cell Distribution Width 16.2 % (11.6-14.8) H Platelet Count 506 K/UL (150-450) H Mean Platelet Volume 5.7 FL (6.5-10.1) L Neutrophils (%) (Auto) % (45.0-75.0) Lymphocytes (%) (Auto) % (20.0-45.0) Monocytes (%) (Auto) % (1.0-10.0) Eosinophils (%) (Auto) % (0.0-3.0) Basophils (%) (Auto) % (0.0-2.0) Differential Total Cells Counted 100 Neutrophils % (Manual) 94 % (45-75) H Lymphocytes % (Manual) 3 % (20-45) L Monocytes % (Manual) 2 % (1-10) Eosinophils % (Manual) 1 % (0-3) Basophils % (Manual) 0 % (0-2) Band Neutrophils 0 % (0-8) Platelet Estimate Increased H Platelet Morphology Normal Anisocytosis 1+ Sodium Level 143 MMOL/L (136-145) Potassium Level 4.7 MMOL/L (3.5-5.1) Chloride Level 100 MMOL/L (98-107) Carbon Dioxide Level 26 MMOL/L (21-32) Anion Gap 17 mmol/L (5-15) H Blood Urea Nitrogen 86 mg/dL (7-18) H Creatinine 11.8 MG/DL (0.55-1.30) H Estimat Glomerular Filtration Rate 4.3 mL/min (>60) Glucose Level 180 MG/DL (74-106) H Calcium Level 10.0 MG/DL (8.5-10.1) Phosphorus Level 6.5 MG/DL (2.5-4.9) H Magnesium Level 3.1 MG/DL (1.8-2.4) H Total Bilirubin 0.5 MG/DL (0.2-1.0) Aspartate Amino Transf (AST/SGOT) 34 U/L (15-37) Alanine Aminotransferase (ALT/SGPT) 21 U/L (12-78) Alkaline Phosphatase 94 U/L (46-116) C-Reactive Protein, Quantitative 6.3 mg/dL (0.00-0.90) H Pro-B-Type Natriuretic Peptide 62492 pg/mL (0-125) H Total Protein 10.1 G/DL (6.4-8.2) H Albumin 3.3 G/DL (3.4-5.0) L Globulin 6.8 g/dL Albumin/Globulin Ratio 0.5 (1.0-2.7) L Objective HEAD AND NECK: No JVD. Trancheostomy in place LUNGS: Decreased breath sounds. CARDIOVASCULAR: Regular S1 and S2. Tachycardic. ABDOMEN: Soft. EXTREMITIES: No pitting edema. New Left FV Gio Engle MD July 09, 2019 13:10
--- NOTE | 2019-07-09 15:05 | Pulmonolgy Critical Care Note ---
Critical Care - Asmt/Plan Assessment/Plan: Pulmonary CCM Progress Note HPI: Patient is a 68 year old man, [place], admitted c/o shortness of breath, cough, noted to have Covid 19 Pneumonia, Respiratory Failure S/p intubation, CXR improving infiltrates ETT adjusted Septic Shock, pressors off Preserved EF FIO2 40%-50%, P5, adequate O2 sats, remains on ACVC, s/p Tracheostomy, CXR stable, for PEG Anemic ID following See earlier Past Medical History: COPD, CKD, Hypertension, Anemia Allergies: No Known Allergies Improving Pulmonary Status on HD Physical Exam Vital Signs Noted Sedated on ventilator WDWN, no distress HEENT: NCAT,moist mm Chest: Occasional rhonchi Heart: HS1, HS2, RRR Abdomen: SNTND, no masses Extremities: Well perfused, no edema 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, no seizures, sedated Impression: COVID-19 virus infection Pneumonia Respiratory failure on ventilator, wean as tolerated CKD - on HD Hypotension on pressors previously Cardiomegaly Lymphopenia Elevated AST COPD Chronic Kidney Disease - HD H/o Hypertension Worsening anemia Plan: Tolerated Tracheostomy Antibiotics per ID HD Pressors PRN ACVC - wean as tolerated [employer]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 Monitor cultures/viral studies PPX Hemodialysis per Renal Psychiatry following [facility] - [facility] requested for when available, [facility] - not available as yet Laboratory Tests Noted: CXR: Hypoventilatory exam, interstitial changes, cardiomegaly, improving infiltrates Subjective ROS Limited/Unobtainable: No Constitutional: Denies: fever Respiratory: Reports: dry cough, shortness of breath Gastrointestinal/Abdominal: Reports: diarrhea, other - colace was stopped Psychiatric: Reports: other - refuses labs Allergies: Coded Allergies: No Known Allergies (Unverified , 05/28/19) All Systems: reviewed and negative except above Labs noted Critical Care - Objective Last 24 Hour Vital Signs Date Time Temp Pulse Resp B/P (MAP) Pulse Ox O2 Delivery O2 Flow Rate FiO2 07/09/19 14:56 101 26 100 Mechanical Ventilator 30 100 26 30 07/09/19 14:00 17 95/72 Mechanical Ventilator 10.0 30 07/09/19 13:00 14 127/68 Mechanical Ventilator 100.0 30 07/09/19 13:00 106 18 86/60 (69) 100 07/09/19 12:00 30 07/09/19 12:00 14 103/63 Mechanical Ventilator 10.0 30 07/09/19 12:00 Mechanical Ventilator 07/09/19 12:00 120 07/09/19 12:00 100.0 113 16 103/63 (76) 100 07/09/19 11:15 103 16 112/72 (85) 100 07/09/19 11:00 103 0 100 07/09/19 11:00 103 0 100 07/09/19 11:00 15 112/72 Mechanical Ventilator 10.0 30 07/09/19 10:49 104 27 100 Mechanical Ventilator 30 102 26 30 07/09/19 10:00 105 17 100 07/09/19 10:00 15 111/69 Mechanical Ventilator 10.0 30 07/09/19 10:00 105 17 111/69 (83) 100 07/09/19 09:45 108 14 89/57 (68) 100 07/09/19 09:45 108 14 89/57 (68) 100 07/09/19 09:30 112 24 112/68 (83) 100 07/09/19 09:30 112 24 112/68 (83) 100 07/09/19 09:15 128/71 (90) 07/09/19 09:15 128/71 (90) 07/09/19 09:00 124/71 (88) 07/09/19 09:00 16 124/71 Mechanical Ventilator 10.0 30 07/09/19 09:00 124/71 (88) 07/09/19 08:45 107 26 93/70 (78) 100 07/09/19 08:45 107 26 93/70 (78) 100 07/09/19 08:30 112 27 135/73 (93) 100 07/09/19 08:30 112 27 135/73 (93) 100 07/09/19 08:15 106 1 81/55 (64) 100 07/09/19 08:15 106 1 81/55 (64) 100 07/09/19 08:01 119 07/09/19 08:00 101.0 07/09/19 08:00 30 07/09/19 08:00 114 6 122/68 (86) 100 07/09/19 08:00 Mechanical Ventilator 07/09/19 08:00 17 122/68 Mechanical Ventilator 10.0 30 07/09/19 08:00 114 6 122/68 (86) 100 07/09/19 07:00 117 27 100 Mechanical Ventilator 30 115 29 30 07/09/19 07:00 27 132/73 Mechanical Ventilator 30 07/09/19 07:00 116 27 128/84 (99) 100 07/09/19 06:30 114 27 07/09/19 06:30 114 27 132/73 (92) 100 07/09/19 06:00 23 130/69 Mechanical Ventilator 30 07/09/19 06:00 112 23 130/69 (89) 100 07/09/19 05:30 109 24 123/74 (90) 100 07/09/19 05:00 106 25 107/60 (76) 100 07/09/19 05:00 25 107/60 Mechanical Ventilator 30 07/09/19 04:30 106 22 124/72 (89) 100 07/09/19 04:00 108 07/09/19 04:00 Mechanical Ventilator 07/09/19 04:00 27 120/78 Mechanical Ventilator 30 07/09/19 04:00 99.2 108 23 120/78 (92) 100 07/09/19 04:00 30 07/09/19 03:30 103 26 133/74 (93) 100 07/09/19 03:12 97 26 100 Mechanical Ventilator 30 97 28 30 07/09/19 03:00 111 27 140/75 (96) 100 07/09/19 03:00 27 140/75 Mechanical Ventilator 30 07/09/19 02:30 109 27 135/71 (92) 100 07/09/19 02:00 26 127/77 Mechanical Ventilator 30 07/09/19 02:00 110 26 127/77 (94) 100 07/09/19 01:30 105 28 139/76 (97) 100 07/09/19 01:00 109 26 141/72 (95) 100 07/09/19 01:00 26 141/72 Mechanical Ventilator 30 07/09/19 00:30 109 26 145/84 (104) 100 07/09/19 00:00 111 07/09/19 00:00 Mechanical Ventilator 07/09/19 00:00 26 151/76 Mechanical Ventilator 30 07/09/19 00:00 98.9 111 24 151/76 (101) 100 07/09/19 00:00 30 5/28/20 23:30 108 27 146/76 (99) 100 07/08/19 23:00 108 26 132/75 (94) 100 07/08/19 23:00 26 132/75 Mechanical Ventilator 30 07/08/19 23:00 146/76 07/08/19 22:56 109 26 100 Mechanical Ventilator 30 105 28 30 07/08/19 22:30 107 24 116/85 (95) 100 07/08/19 22:00 108 25 130/72 (91) 100 07/08/19 22:00 25 130/72 Mechanical Ventilator 30 07/08/19 21:30 104 26 102/71 (81) 100 07/08/19 21:00 98 27 133/86 (102) 100 07/08/19 21:00 26 133/86 Mechanical Ventilator 30 07/08/19 20:30 101 26 138/76 (96) 100 07/08/19 20:00 Mechanical Ventilator 07/08/19 20:00 28 108/69 Mechanical Ventilator 30 07/08/19 20:00 30 07/08/19 20:00 98.9 105 28 108/69 (82) 100 07/08/19 19:39 100 07/08/19 19:30 105 26 112/63 (79) 100 07/08/19 19:02 102 28 100 Mechanical Ventilator 30 105 28 30 07/08/19 19:00 104 26 111/69 (83) 100 07/08/19 19:00 27 111/69 Mechanical Ventilator 30 07/08/19 18:00 95 24 115/65 (82) 100 07/08/19 18:00 26 104/63 Mechanical Ventilator 30 07/08/19 17:30 99.0 95 26 88/55 (66) 100 07/08/19 17:00 26 116/70 Mechanical Ventilator 30 07/08/19 17:00 99 26 116/70 (85) 100 07/08/19 16:30 108 23 126/75 (92) 100 07/08/19 16:00 30 07/08/19 16:00 110 25 138/82 (100) 100 07/08/19 16:00 Mechanical Ventilator 07/08/19 16:00 26 138/82 Mechanical Ventilator 30 07/08/19 15:30 112 26 116/79 (91) 100 07/08/19 15:23 117 Accucheck: 185 Critical Care - Subjective ROS Limited/Unobtainable: Yes Condition: stable IV Access: central FI02: 30 Vent Support Breath Rate: 26 Vent Support Mode: AC Vent Tidal Volume: 500 Sputum Amount: Small PEEP: 5.0 PIP: 24 Tube Feeding Amount: 0 I&O: Intake and Output 07/08/19 07/09/19 19:00 07:00 Intake Total 374 ml 190 ml Output Total 0 ml 0 ml Balance 374 ml 190 ml IV Total 154 ml 60 ml Tube Feeding 120 ml 80 ml Other 100 ml 50 ml Output Urine Total 0 ml 0 ml ET-Tube: 7.5 ET Position: 24 Arturo Mckeon MD July 09, 2019 15:05
--- NOTE | 2019-07-09 15:49 | Surgery Progress Note ---
Surgery Progress Note Subjective Procedure Performed tracheostomy Additional Comments s/p trach comfortable pending peg Objective Last 24 Hour Vital Signs Date Time Temp Pulse Resp B/P (MAP) Pulse Ox O2 Delivery O2 Flow Rate FiO2 07/09/19 15:18 27 128/68 Mechanical Ventilator 10.0 30 07/09/19 15:00 101 27 128/68 (88) 100 07/09/19 14:56 101 26 100 Mechanical Ventilator 30 100 26 30 07/09/19 14:00 17 95/72 Mechanical Ventilator 10.0 30 07/09/19 14:00 103 27 95/72 (80) 100 07/09/19 13:00 14 127/68 Mechanical Ventilator 100.0 30 07/09/19 13:00 106 18 86/60 (69) 100 07/09/19 12:00 30 07/09/19 12:00 14 103/63 Mechanical Ventilator 10.0 30 07/09/19 12:00 Mechanical Ventilator 07/09/19 12:00 120 07/09/19 12:00 100.0 113 16 103/63 (76) 100 07/09/19 11:15 103 16 112/72 (85) 100 07/09/19 11:00 103 0 100 07/09/19 11:00 103 0 100 07/09/19 11:00 15 112/72 Mechanical Ventilator 10.0 30 07/09/19 10:49 104 27 100 Mechanical Ventilator 30 102 26 30 07/09/19 10:00 105 17 100 07/09/19 10:00 15 111/69 Mechanical Ventilator 10.0 30 07/09/19 10:00 105 17 111/69 (83) 100 07/09/19 09:45 108 14 89/57 (68) 100 07/09/19 09:45 108 14 89/57 (68) 100 07/09/19 09:30 112 24 112/68 (83) 100 07/09/19 09:30 112 24 112/68 (83) 100 07/09/19 09:15 128/71 (90) 07/09/19 09:15 128/71 (90) 07/09/19 09:00 124/71 (88) 07/09/19 09:00 16 124/71 Mechanical Ventilator 10.0 30 07/09/19 09:00 124/71 (88) 07/09/19 08:45 107 26 93/70 (78) 100 07/09/19 08:45 107 26 93/70 (78) 100 07/09/19 08:30 112 27 135/73 (93) 100 07/09/19 08:30 112 27 135/73 (93) 100 07/09/19 08:15 106 1 81/55 (64) 100 07/09/19 08:15 106 1 81/55 (64) 100 07/09/19 08:01 119 07/09/19 08:00 101.0 07/09/19 08:00 30 07/09/19 08:00 114 6 122/68 (86) 100 07/09/19 08:00 Mechanical Ventilator 07/09/19 08:00 17 122/68 Mechanical Ventilator 10.0 30 07/09/19 08:00 114 6 122/68 (86) 100 07/09/19 07:00 117 27 100 Mechanical Ventilator 30 115 29 30 07/09/19 07:00 27 132/73 Mechanical Ventilator 30 07/09/19 07:00 116 27 128/84 (99) 100 07/09/19 06:30 114 27 07/09/19 06:30 114 27 132/73 (92) 100 07/09/19 06:00 23 130/69 Mechanical Ventilator 30 07/09/19 06:00 112 23 130/69 (89) 100 07/09/19 05:30 109 24 123/74 (90) 100 07/09/19 05:00 106 25 107/60 (76) 100 07/09/19 05:00 25 107/60 Mechanical Ventilator 30 07/09/19 04:30 106 22 124/72 (89) 100 07/09/19 04:00 108 07/09/19 04:00 Mechanical Ventilator 07/09/19 04:00 27 120/78 Mechanical Ventilator 30 07/09/19 04:00 99.2 108 23 120/78 (92) 100 07/09/19 04:00 30 07/09/19 03:30 103 26 133/74 (93) 100 07/09/19 03:12 97 26 100 Mechanical Ventilator 30 97 28 30 07/09/19 03:00 111 27 140/75 (96) 100 07/09/19 03:00 27 140/75 Mechanical Ventilator 30 07/09/19 02:30 109 27 135/71 (92) 100 07/09/19 02:00 26 127/77 Mechanical Ventilator 30 07/09/19 02:00 110 26 127/77 (94) 100 07/09/19 01:30 105 28 139/76 (97) 100 07/09/19 01:00 109 26 141/72 (95) 100 07/09/19 01:00 26 141/72 Mechanical Ventilator 30 07/09/19 00:30 109 26 145/84 (104) 100 07/09/19 00:00 111 07/09/19 00:00 Mechanical Ventilator 07/09/19 00:00 26 151/76 Mechanical Ventilator 30 07/09/19 00:00 98.9 111 24 151/76 (101) 100 07/09/19 00:00 30 07/08/19 23:30 108 27 146/76 (99) 100 07/08/19 23:00 108 26 132/75 (94) 100 07/08/19 23:00 26 132/75 Mechanical Ventilator 30 07/08/19 23:00 146/76 07/08/19 22:56 109 26 100 Mechanical Ventilator 30 105 28 30 07/08/19 22:30 107 24 116/85 (95) 100 07/08/19 22:00 108 25 130/72 (91) 100 07/08/19 22:00 25 130/72 Mechanical Ventilator 30 07/08/19 21:30 104 26 102/71 (81) 100 07/08/19 21:00 98 27 133/86 (102) 100 07/08/19 21:00 26 133/86 Mechanical Ventilator 30 07/08/19 20:30 101 26 138/76 (96) 100 07/08/19 20:00 Mechanical Ventilator 07/08/19 20:00 28 108/69 Mechanical Ventilator 30 07/08/19 20:00 30 07/08/19 20:00 98.9 105 28 108/69 (82) 100 07/08/19 19:39 100 07/08/19 19:30 105 26 112/63 (79) 100 07/08/19 19:02 102 28 100 Mechanical Ventilator 30 105 28 30 07/08/19 19:00 104 26 111/69 (83) 100 07/08/19 19:00 27 111/69 Mechanical Ventilator 30 07/08/19 18:00 95 24 115/65 (82) 100 07/08/19 18:00 26 104/63 Mechanical Ventilator 30 07/08/19 17:30 99.0 95 26 88/55 (66) 100 07/08/19 17:00 26 116/70 Mechanical Ventilator 30 07/08/19 17:00 99 26 116/70 (85) 100 07/08/19 16:30 108 23 126/75 (92) 100 07/08/19 16:00 30 07/08/19 16:00 110 25 138/82 (100) 100 07/08/19 16:00 Mechanical Ventilator 07/08/19 16:00 26 138/82 Mechanical Ventilator 30 I&O Intake and Output 07/08/19 07/09/19 19:00 07:00 Intake Total 374 ml 190 ml Output Total 0 ml 0 ml Balance 374 ml 190 ml IV Total 154 ml 60 ml Tube Feeding 120 ml 80 ml Other 100 ml 50 ml Output Urine Total 0 ml 0 ml Dressing: other Wound: other Drains: other Cardiovascular: RSR Respiratory: decreased breath sounds Abdomen: soft, non-tender, present bowel sounds Extremities: no cyanosis, other Laboratory Tests Test 07/09/19 04:15 White Blood Count 18.2 K/UL (4.8-10.8) H Red Blood Count 3.23 M/UL (4.70-6.10) L Hemoglobin 9.4 G/DL (14.2-18.0) L Hematocrit 29.8 % (42.0-52.0) L Mean Corpuscular Volume 92 FL (80-99) Mean Corpuscular Hemoglobin 29.1 PG (27.0-31.0) Mean Corpuscular Hemoglobin Concent 31.5 G/DL (32.0-36.0) L Red Cell Distribution Width 16.2 % (11.6-14.8) H Platelet Count 506 K/UL (150-450) H Mean Platelet Volume 5.7 FL (6.5-10.1) L Neutrophils (%) (Auto) % (45.0-75.0) Lymphocytes (%) (Auto) % (20.0-45.0) Monocytes (%) (Auto) % (1.0-10.0) Eosinophils (%) (Auto) % (0.0-3.0) Basophils (%) (Auto) % (0.0-2.0) Differential Total Cells Counted 100 Neutrophils % (Manual) 94 % (45-75) H Lymphocytes % (Manual) 3 % (20-45) L Monocytes % (Manual) 2 % (1-10) Eosinophils % (Manual) 1 % (0-3) Basophils % (Manual) 0 % (0-2) Band Neutrophils 0 % (0-8) Platelet Estimate Increased H Platelet Morphology Normal Anisocytosis 1+ Sodium Level 143 MMOL/L (136-145) Potassium Level 4.7 MMOL/L (3.5-5.1) Chloride Level 100 MMOL/L (98-107) Carbon Dioxide Level 26 MMOL/L (21-32) Anion Gap 17 mmol/L (5-15) H Blood Urea Nitrogen 86 mg/dL (7-18) H Creatinine 11.8 MG/DL (0.55-1.30) H Estimat Glomerular Filtration Rate 4.3 mL/min (>60) Glucose Level 180 MG/DL (74-106) H Calcium Level 10.0 MG/DL (8.5-10.1) Phosphorus Level 6.5 MG/DL (2.5-4.9) H Magnesium Level 3.1 MG/DL (1.8-2.4) H Total Bilirubin 0.5 MG/DL (0.2-1.0) Aspartate Amino Transf (AST/SGOT) 34 U/L (15-37) Alanine Aminotransferase (ALT/SGPT) 21 U/L (12-78) Alkaline Phosphatase 94 U/L (46-116) C-Reactive Protein, Quantitative 6.3 mg/dL (0.00-0.90) H Pro-B-Type Natriuretic Peptide 57757 pg/mL (0-125) H Total Protein 10.1 G/DL (6.4-8.2) H Albumin 3.3 G/DL (3.4-5.0) L Globulin 6.8 g/dL Albumin/Globulin Ratio 0.5 (1.0-2.7) L Plan Problems: (1) Suspected COVID-19 virus infection (2) HTN (hypertension) (3) CASSANDRA (acute kidney injury) Assessment & Plan: Needs urgent HD needs access patient okay and consented see note will follow with recs new line placed discussed with team and nephrology HD line functional when checked has TPA now please use appropriately Cathflo used again this flow during dialysis on 430 was low. Will monitor may need line change 5/4 plan for HD as per renal may need to take fluid off with HD edema anasarca dressings saturated and changed will monitor cont with HD (4) Anemia in chronic kidney disease (CKD) (5) Anemia (6) Renal failure (7) Suspected COVID-19 virus infection Assessment & Plan: Pt deconditioned and despite all skin preventions Pt noted to have developed several pressure injuries. . Stable dry eschar noted to clefts of R and L ears. No erythema noted . DTPI noted to L trochanter. Base of injury is maroon in colour with marginal erythema along borders. Partially opened DTPI Sacrum, R and L Buttocks. Base of wound is maroon with two small open wounds L sacrum and L buttocks. Pt has an APM/MOMO Mattress overlay and is being positioned with pillows as per tolerance and within protocols. worsening despite medical efforts will cont to provide therapy Tx.Plan: Apply Cavilon Skin Barrier to both ears Daily and prn. Apply Moisture Barrier Paste to Sacrum,R and L Buttocks. Cover with Optifoam drsgs. Change every 3 days and PRN. Apply Cavilon Skin Barrier to R and L trochanter. Cover each site with Optifoam drsgs.Change every 7 days and PRN. Apply Cavilon Skin Barrier to both heels. Cover each heel with Optifoam drsg. Change every 7 days and prn. Off-load heels with pillow. Reposition at least every 2hours or as tolerated. APM/MOMO Mattress overlay. (8) COVID-19 Assessment & Plan: COVID + c diff negative febrile leukocytosis renal insufficiency see above cont resp care Rx as per ID worsening on vent support now cxr noted on pressors prognosis guarded repeat covid ++ weaning vent and pressors off slowly showing improvement slowly recovering will need trach as unable to wean vent safely called and spoke with country conservatorship. consent obtained s/p trach pending peg Yaniv Mast July 09, 2019 15:49
--- NOTE | 2019-07-09 17:12 | General Progress Note ---
Assessment/Plan Problem List: (1) HTN (hypertension) ICD Codes: I10 - Essential (primary) hypertension SNOMED: 16954701 (2) CASSANDRA (acute kidney injury) ICD Codes: N17.9 - Acute kidney failure, unspecified SNOMED: 4071673, 28494409 (3) Anemia in chronic kidney disease (CKD) ICD Codes: N18.9 - Chronic kidney disease, unspecified; D63.1 - Anemia in chronic kidney disease SNOMED: 054991999 (4) Renal failure ICD Codes: N19 - Unspecified kidney failure SNOMED: 93465386 (5) Respiratory failure requiring intubation ICD Codes: J96.90 - Respiratory failure, unspecified, unspecified whether with hypoxia or hypercapnia; A41.89 - Other specified sepsis SNOMED: 664281164, 318438061 (6) Pneumonia due to COVID-19 virus ICD Codes: U07.1 - COVID-19; J12.89 - Other viral pneumonia SNOMED: 902843556, 951991747 (7) Sepsis due to severe acute respiratory syndrome coronavirus 2 (SARS-CoV-2) ICD Codes: U07.1 - COVID-19; A41.89 - Other specified sepsis SNOMED: 106622703, 923036933 Status: unchanged Assessment/Plan: persistent leukocytosis s/p trach peg per dr deleon prn pressors hcv psychiatric history sepsis pna diaylsis per renal sepsis check lytes Subjective ROS Limited/Unobtainable: Yes Allergies: Coded Allergies: No Known Allergies (Unverified , 05/28/19) Objective Last 24 Hour Vital Signs Date Time Temp Pulse Resp B/P (MAP) Pulse Ox O2 Delivery O2 Flow Rate FiO2 07/09/19 17:08 102 26 111/83 (92) 100 07/09/19 16:00 30 07/09/19 16:00 Mechanical Ventilator 07/09/19 16:00 98.9 97 26 91/67 (75) 100 07/09/19 15:18 27 128/68 Mechanical Ventilator 10.0 30 07/09/19 15:00 101 27 128/68 (88) 100 07/09/19 14:56 101 26 100 Mechanical Ventilator 30 100 26 30 07/09/19 14:00 17 95/72 Mechanical Ventilator 10.0 30 07/09/19 14:00 103 27 95/72 (80) 100 07/09/19 13:00 14 127/68 Mechanical Ventilator 100.0 30 07/09/19 13:00 106 18 86/60 (69) 100 07/09/19 12:00 30 07/09/19 12:00 14 103/63 Mechanical Ventilator 10.0 30 07/09/19 12:00 Mechanical Ventilator 07/09/19 12:00 120 07/09/19 12:00 100.0 113 16 103/63 (76) 100 07/09/19 11:15 103 16 112/72 (85) 100 07/09/19 11:00 103 0 100 07/09/19 11:00 103 0 100 07/09/19 11:00 15 112/72 Mechanical Ventilator 10.0 30 07/09/19 10:49 104 27 100 Mechanical Ventilator 30 102 26 30 07/09/19 10:00 105 17 100 07/09/19 10:00 15 111/69 Mechanical Ventilator 10.0 30 07/09/19 10:00 105 17 111/69 (83) 100 07/09/19 09:45 108 14 89/57 (68) 100 07/09/19 09:45 108 14 89/57 (68) 100 07/09/19 09:30 112 24 112/68 (83) 100 07/09/19 09:30 112 24 112/68 (83) 100 07/09/19 09:15 128/71 (90) 07/09/19 09:15 128/71 (90) 07/09/19 09:00 124/71 (88) 07/09/19 09:00 16 124/71 Mechanical Ventilator 10.0 30 07/09/19 09:00 124/71 (88) 07/09/19 08:45 107 26 93/70 (78) 100 07/09/19 08:45 107 26 93/70 (78) 100 07/09/19 08:30 112 27 135/73 (93) 100 07/09/19 08:30 112 27 135/73 (93) 100 07/09/19 08:15 106 1 81/55 (64) 100 07/09/19 08:15 106 1 81/55 (64) 100 07/09/19 08:01 119 07/09/19 08:00 101.0 07/09/19 08:00 30 07/09/19 08:00 114 6 122/68 (86) 100 07/09/19 08:00 Mechanical Ventilator 07/09/19 08:00 17 122/68 Mechanical Ventilator 10.0 30 07/09/19 08:00 114 6 122/68 (86) 100 07/09/19 07:00 117 27 100 Mechanical Ventilator 30 115 29 30 07/09/19 07:00 27 132/73 Mechanical Ventilator 30 07/09/19 07:00 116 27 128/84 (99) 100 07/09/19 06:30 114 27 07/09/19 06:30 114 27 132/73 (92) 100 07/09/19 06:00 23 130/69 Mechanical Ventilator 30 07/09/19 06:00 112 23 130/69 (89) 100 07/09/19 05:30 109 24 123/74 (90) 100 07/09/19 05:00 106 25 107/60 (76) 100 07/09/19 05:00 25 107/60 Mechanical Ventilator 30 07/09/19 04:30 106 22 124/72 (89) 100 07/09/19 04:00 108 07/09/19 04:00 Mechanical Ventilator 07/09/19 04:00 27 120/78 Mechanical Ventilator 30 07/09/19 04:00 99.2 108 23 120/78 (92) 100 07/09/19 04:00 30 07/09/19 03:30 103 26 133/74 (93) 100 07/09/19 03:12 97 26 100 Mechanical Ventilator 30 97 28 30 07/09/19 03:00 111 27 140/75 (96) 100 07/09/19 03:00 27 140/75 Mechanical Ventilator 30 07/09/19 02:30 109 27 135/71 (92) 100 07/09/19 02:00 26 127/77 Mechanical Ventilator 07/09/19 02:00 110 26 127/77 (94) 100 07/09/19 01:30 105 28 139/76 (97) 100 07/09/19 01:00 109 26 141/72 (95) 100 07/09/19 01:00 26 141/72 Mechanical Ventilator 30 07/09/19 00:30 109 26 145/84 (104) 100 07/09/19 00:00 111 07/09/19 00:00 Mechanical Ventilator 07/09/19 00:00 26 151/76 Mechanical Ventilator 30 07/09/19 00:00 98.9 111 24 151/76 (101) 100 07/09/19 00:00 30 07/08/19 23:30 108 27 146/76 (99) 100 07/08/19 23:00 108 26 132/75 (94) 100 07/08/19 23:00 26 132/75 Mechanical Ventilator 30 07/08/19 23:00 146/76 07/08/19 22:56 109 26 100 Mechanical Ventilator 30 105 28 30 07/08/19 22:30 107 24 116/85 (95) 100 07/08/19 22:00 108 25 130/72 (91) 100 07/08/19 22:00 25 130/72 Mechanical Ventilator 30 07/08/19 21:30 104 26 102/71 (81) 100 07/08/19 21:00 98 27 133/86 (102) 100 07/08/19 21:00 26 133/86 Mechanical Ventilator 30 07/08/19 20:30 101 26 138/76 (96) 100 07/08/19 20:00 Mechanical Ventilator 07/08/19 20:00 28 108/69 Mechanical Ventilator 30 07/08/19 20:00 30 07/08/19 20:00 98.9 105 28 108/69 (82) 100 07/08/19 19:39 100 07/08/19 19:30 105 26 112/63 (79) 100 07/08/19 19:02 102 28 100 Mechanical Ventilator 30 105 28 30 07/08/19 19:00 104 26 111/69 (83) 100 07/08/19 19:00 27 111/69 Mechanical Ventilator 30 07/08/19 18:00 95 24 115/65 (82) 100 07/08/19 18:00 26 104/63 Mechanical Ventilator 30 07/08/19 17:30 99.0 95 26 88/55 (66) 100 Intake and Output 07/08/19 07/09/19 19:00 07:00 Intake Total 374 ml 190 ml Output Total 0 ml 0 ml Balance 374 ml 190 ml IV Total 154 ml 60 ml Tube Feeding 120 ml 80 ml Other 100 ml 50 ml Output Urine Total 0 ml 0 ml Laboratory Tests 07/09/19 04:15: White Blood Count 18.2H, Red Blood Count 3.23L, Hemoglobin 9.4L, Hematocrit 29.8L, Mean Corpuscular Volume 92, Mean Corpuscular Hemoglobin 29.1, Mean Corpuscular Hemoglobin Concent 31.5L, Red Cell Distribution Width 16.2H, Platelet Count 506H, Mean Platelet Volume 5.7L, Neutrophils (%) (Auto) , Lymphocytes (%) (Auto) , Monocytes (%) (Auto) , Eosinophils (%) (Auto) , Basophils (%) (Auto) , Differential Total Cells Counted 100, Neutrophils % ( Manual) 94H, Lymphocytes % (Manual) 3L, Monocytes % (Manual) 2, Eosinophils % ( Manual) 1, Basophils % (Manual) 0, Band Neutrophils 0, Platelet Estimate IncreasedH, Platelet Morphology Normal, Anisocytosis 1+, Sodium Level 143, Potassium Level 4.7, Chloride Level 100, Carbon Dioxide Level 26, Anion Gap 17H , Blood Urea Nitrogen 86H, Creatinine 11.8H, Estimat Glomerular Filtration Rate 4.3, Glucose Level 180H, Calcium Level 10.0, Phosphorus Level 6.5H, Magnesium Level 3.1H, Total Bilirubin 0.5, Aspartate Amino Transf (AST/SGOT) 34, Alanine Aminotransferase (ALT/SGPT) 21, Alkaline Phosphatase 94, C-Reactive Protein, Quantitative 6.3H, Pro-B-Type Natriuretic Peptide 98729O, Total Protein 10.1H, Albumin 3.3L, Globulin 6.8, Albumin/Globulin Ratio 0.5L Height (Feet): 6 Height (Inches): 1.00 Weight (Pounds): 164 Karishma Mulligan MD July 09, 2019 17:12
[2019-07-09] MEDS: Meropenem 500 MG in NS 55 ML IVPB SCH (17:30)
[2019-07-09] MEDS: Dyna-Hex 2% Top Sol 2oz TOPIC SCH (19:57)
[2019-07-09] MEDS: fentaNYL 2500mcg/NS 250ml IV SCH (21:27)
[2019-07-09] MEDS: Epoetin Alfa-EPBX(ESRD on dialysis)10,000 unit/ml vial SUBQ SCH (22:05)
[2019-07-09] MEDS: NOREPINEPHRINE BITARTRATE IV SCH ×3 (23:00)
[2019-07-09] MEDS: D5W IV SCH ×3 (23:00)
[2019-07-10] VITALS (67 sets, daily range): BP systolic 68–143; BP diastolic 43–103
[2019-07-10] MEDS: Albuterol 90mcg Inhaler 8gm INH SCH ×6 (03:00→23:12)
[2019-07-10] MEDS: NovoLOG Insulin Flexpen SUBQ SCH ×4 (05:32→23:43)
[2019-07-10] MEDS: Renvela 800mg Pkt NG SCH ×3 (05:38→21:18)
[2019-07-10 07:25] LABS: HEMATOCRIT 30.8 % (42.0-52.0); HEMOGLOBIN 9.5 G/DL (14.2-18.0); MEAN CORPUSCULAR VOLUME 92 FL (80-99); PLATELET COUNT 407 K/UL (150-450); RED BLOOD COUNT 3.34 M/UL (4.70-6.10); RED CELL DISTRIBUTION WIDTH 16.7 % (11.6-14.8); WHITE BLOOD COUNT 18.5 K/UL (4.8-10.8)
--- NOTE | 2019-07-10 08:01 | General Progress Note ---
Assessment/Plan Status: unchanged Assessment/Plan: 1. Diabetes. 2. Hypertension. 3. Coronary artery disease. 4. COPD. 5. Psychiatric disorder with schizophrenia. 6. History of hepatitis C. 7. HLP. 8. Chronic kidney disease, now with acute renal failure. 9. Anemia. 10. Hypothyroidism. 11. Spinal stenosis. 12. Constipation. 13. GERD. 14. COVID positive HD per nephrology fu labs icu care NGTF pending PEG for Friday if consented Subjective ROS Limited/Unobtainable: No Allergies: Coded Allergies: No Known Allergies (Unverified , 05/28/19) Objective Last 24 Hour Vital Signs Date Time Temp Pulse Resp B/P (MAP) Pulse Ox O2 Delivery O2 Flow Rate FiO2 07/10/19 07:06 129 35 100 Mechanical Ventilator 30 129 32 30 07/10/19 07:00 129 35 113/72 (86) 100 07/10/19 07:00 35 113/72 Mechanical Ventilator 30 07/10/19 06:45 127 32 07/10/19 06:30 127 32 119/73 (88) 100 07/10/19 06:15 126 31 135/74 (94) 100 07/10/19 06:00 118 28 88/57 (67) 100 07/10/19 06:00 28 88/57 Mechanical Ventilator 30 07/10/19 05:30 121 33 114/67 (83) 100 07/10/19 05:00 113 26 118/76 (90) 100 07/10/19 05:00 26 118/76 Mechanical Ventilator 30 07/10/19 04:30 112 26 85/56 (66) 100 07/10/19 04:15 109 26 96/66 (76) 100 07/10/19 04:00 26 95/56 Mechanical Ventilator 30 07/10/19 04:00 30 07/10/19 04:00 99.0 109 26 95/56 (69) 100 07/10/19 04:00 Mechanical Ventilator 07/10/19 03:44 109 26 100 Mechanical Ventilator 30 109 26 30 07/10/19 03:30 112 26 93/61 (72) 100 07/10/19 03:07 111 07/10/19 03:00 115 27 114/71 (85) 100 07/10/19 03:00 27 114/71 Mechanical Ventilator 30 07/10/19 02:30 117 36 125/80 (95) 100 07/10/19 02:00 27 114/74 Mechanical Ventilator 30 07/10/19 02:00 113 27 114/74 (87) 100 07/10/19 01:30 117 29 143/76 (98) 100 07/10/19 01:00 122 30 129/80 (96) 100 07/10/19 01:00 26 129/80 Mechanical Ventilator 30 07/10/19 00:30 119 34 115/77 (90) 100 07/10/19 00:00 30 07/10/19 00:00 114 07/10/19 00:00 Mechanical Ventilator 07/10/19 00:00 26 108/54 Mechanical Ventilator 30 07/10/19 00:00 99.2 114 26 108/64 (79) 100 07/09/19 23:30 116 26 113/71 (85) 100 07/09/19 23:01 110 26 100 Mechanical Ventilator 30 110 26 30 07/09/19 23:00 20 127/84 Mechanical Ventilator 30 07/09/19 23:00 113/71 07/09/19 23:00 114 20 127/84 (98) 100 07/09/19 22:30 117 27 115/65 (82) 100 07/09/19 22:00 27 118/78 Mechanical Ventilator 30 07/09/19 22:00 118 27 118/74 (89) 100 07/09/19 21:30 115 30 127/74 (91) 100 07/09/19 21:27 26 120/72 Mechanical Ventilator 07/09/19 21:00 113 30 136/78 (97) 100 07/09/19 20:30 100.4 112 30 136/81 (99) 100 07/09/19 20:00 30 07/09/19 20:00 113 28 123/75 (91) 100 07/09/19 20:00 Mechanical Ventilator 07/09/19 19:59 114 07/09/19 19:30 108 27 124/77 (93) 100 07/09/19 19:11 105 26 100 Mechanical Ventilator 30 105 26 30 07/09/19 19:00 106 25 120/78 (92) 100 07/09/19 18:00 27 91/68 Mechanical Ventilator 10.0 30 07/09/19 18:00 100.0 102 27 91/68 (76) 100 07/09/19 17:08 102 26 111/83 (92) 100 07/09/19 17:00 26 118/83 Mechanical Ventilator 10.0 30 07/09/19 16:00 30 07/09/19 16:00 Mechanical Ventilator 07/09/19 16:00 26 91/67 Mechanical Ventilator 10.0 30 07/09/19 16:00 98.9 97 26 91/67 (75) 100 07/09/19 15:18 27 128/68 Mechanical Ventilator 10.0 30 07/09/19 15:00 101 27 128/68 (88) 100 07/09/19 14:56 101 26 100 Mechanical Ventilator 30 100 26 30 07/09/19 14:00 17 95/72 Mechanical Ventilator 10.0 30 07/09/19 14:00 103 27 95/72 (80) 100 07/09/19 13:00 14 127/68 Mechanical Ventilator 100.0 30 07/09/19 13:00 106 18 86/60 (69) 100 07/09/19 12:00 30 07/09/19 12:00 14 103/63 Mechanical Ventilator 10.0 30 07/09/19 12:00 Mechanical Ventilator 07/09/19 12:00 120 07/09/19 12:00 100.0 113 16 103/63 (76) 100 07/09/19 11:15 103 16 112/72 (85) 100 07/09/19 11:00 103 0 100 07/09/19 11:00 103 0 100 07/09/19 11:00 15 112/72 Mechanical Ventilator 10.0 30 07/09/19 10:49 104 27 100 Mechanical Ventilator 30 102 26 30 07/09/19 10:00 105 17 100 07/09/19 10:00 15 111/69 Mechanical Ventilator 10.0 30 07/09/19 10:00 105 17 111/69 (83) 100 07/09/19 09:45 108 14 89/57 (68) 100 07/09/19 09:45 108 14 89/57 (68) 100 07/09/19 09:30 112 24 112/68 (83) 100 07/09/19 09:30 112 24 112/68 (83) 100 07/09/19 09:15 128/71 (90) 07/09/19 09:15 128/71 (90) 07/09/19 09:00 124/71 (88) 07/09/19 09:00 16 124/71 Mechanical Ventilator 10.0 30 07/09/19 09:00 124/71 (88) 07/09/19 08:45 107 26 93/70 (78) 100 07/09/19 08:45 107 26 93/70 (78) 100 07/09/19 08:30 112 27 135/73 (93) 100 07/09/19 08:30 112 27 135/73 (93) 100 07/09/19 08:15 106 1 81/55 (64) 100 07/09/19 08:15 106 1 81/55 (64) 100 07/09/19 08:01 119 Intake and Output 07/09/19 07/10/19 19:00 07:00 Intake Total 425 ml 628 ml Output Total 1010 ml 10 ml Balance -585 ml 618 ml Free Water 100 ml IV Total 55 ml 113 ml Tube Feeding 150 ml 415 ml Other 120 ml 100 ml Output Urine Total 10 ml 10 ml Hemodialysis UF 1000 ml # Bowel Movements 1 Laboratory Tests 07/10/19 04:00: White Blood Count 18.5H, Red Blood Count 3.34L, Hemoglobin 9.5L, Hematocrit 30.8L, Mean Corpuscular Volume 92, Mean Corpuscular Hemoglobin 28.5, Mean Corpuscular Hemoglobin Concent 31.0L, Red Cell Distribution Width 16.7H, Platelet Count 407, Mean Platelet Volume 6.1L, Neutrophils (%) (Auto) , Lymphocytes (%) (Auto) , Monocytes (%) (Auto) , Eosinophils (%) (Auto) , Basophils (%) (Auto) , Neutrophils % (Manual) [Pending], Lymphocytes % (Manual) [Pending], Platelet Estimate [Pending], Platelet Morphology [Pending], Sodium Level [Pending], Potassium Level [Pending], Chloride Level [Pending], Carbon Dioxide Level [Pending], Blood Urea Nitrogen [Pending], Creatinine [Pending], Estimat Glomerular Filtration Rate [Pending], Glucose Level [Pending], Calcium Level [Pending], Random Vancomycin Level [Pending] Height (Feet): 6 Height (Inches): 1.00 Weight (Pounds): 161 General Appearance: no apparent distress EENT: normal ENT inspection Neck: supple Cardiovascular: normal rate Respiratory/Chest: decreased breath sounds Abdomen: normal bowel sounds, non tender, soft Extremities: non-tender Marito Ramires MD July 10, 2019 08:01
[2019-07-10] MEDS: Enoxaparin 30mg Inj SUBQ SCH (08:17)
[2019-07-10] MEDS: Pantoprazole Inj IVP SCH (08:17)
[2019-07-10] MEDS: Midodrine 10mg tab NG SCH ×3 (08:17→17:26)
[2019-07-10 08:21] LABS: ANION GAP 19 mmol/L (5-15); BLOOD UREA NITROGEN 73 mg/dL (7-18); CALCIUM 9.9 MG/DL (8.5-10.1); CARBON DIOXIDE 25 MMOL/L (21-32); CHLORIDE 97 MMOL/L (98-107); CREATININE 10.3 MG/DL (0.55-1.30); POTASSIUM 4.2 MMOL/L (3.5-5.1); SODIUM 141 MMOL/L (136-145)
--- NOTE | 2019-07-10 08:51 | Hematology/Onc Progress Note ---
Assessment/Plan Assessment/Plan Assessment and Recs: # Anemia of chronic disease, likely related ot underlying kidney disease has COIVD19++++++ --> hgb trend 9-->8-->7.3-->7.9-->6.8->9.5-->10->8.3-->7.7-->7.1-->8.9->8.8->7.7 -->8.1 ->7.9-->7.7 -->8.2-->8.1 -->7.9-->8.5 -->9->9.2-->9.5 --> transfuse as needed, hgb goal >7 --> no evidence of hemolysis --> peripheral smear has been reviewed --> epogen started 3 x a week ==>> transfuse 06/08, 06/15, # Leukocytosis likely related to suspected COVID-19 virus infection --> completed plaquenil --> trend smear as needed --> wbc trend: 4-->11-->14.5-->21-->26-->21->24--.28-->23-->19-->16.2-->21--> 11.2 -->12.5-->12.3-->12.4-->18.5 --> pulm is aware --> on abx cefepime/vanc->zosyn/vanc->dom/vanc --> pressors as needed --> 06/27 covid 19++ # Thrombocytopenia/Lymphopenia --> likely related to covid19 --> plt 129k-->186k-->251-->285-->384 -->430-->539-->515 --> abx # Respiratory failure with covid19+ --> s/p vent/trach --> weaning # Possible Pneumonia --> abx completed # Cardiomegaly # Transaminitis with Elevated AST # COPD # Chronic Kidney Disease --> per renal hd --> s/p right femoral cath 07/02 # Hypertension # Dvt ppx lovenox # peg for 07/12/2019 Appreciate consultation and ernesto Rn Subjective Allergies: Coded Allergies: No Known Allergies (Unverified , 05/28/19) Subjective 06/01 nv, extremely agitated, not allowing labs draws, no night sweats, cbc ordered 06/02 confused, restraints, on abx and plaquenil, hgb 7.9, nrb 15 L 06/03 is with nonrebreather, but not compliant, remains confused 06/05 no bleeding, labs noted, no major bleeding, otherwise comfortable 06/06 labs reviewed, no bleeding, meds noted, no night sweats, on levo and nonrebreather 06/07 labs noted, no bleeding, meds reviewed, no bleeding, wbc higher 06/08 to get 2 units prbc, no night sweats, meds reviewed 06/09 is on cefepime and vanc, labs noted, ernesto Rn, no bleeding 06/10 no major changes, labs reviewed, wbc 28k, on abx, cefepime 06/12 remains in icu, labs noted, no night sweats or bleeding 06/13 sluggish pupils, remains agitated, per psych, no bleding, on vent, wbc sitll high 06/14 still confused, remains on vent, with ng, running nepro, on pressors 06/15 icu, febrile, non verbal, hgb 7.1, blood pending, completed plaq 06/16 remains in the icu, nonverbal, plan for hd tomorrow, ernesto rn 06/17 in icu, on pressor, nonverbal, on abx, no bleeding 06/19 no bleeding, nonverbal in icu, hgb is 7.7 06/20 on zosyn, tube feeds, vent, labs noted, in icu, nv 06/21 gettng hd as per renal, in icu, nv, no bleeding, tfs 06/22 icu, cxr with slight improvement, cooling blanket, weaning today 06/23 wewaning, in icu, on vent, abx, and pressors as needed, labs noted 06/24 failed weaning, off abx, completed plaquenil, hgb 8.1 06/26 icu, weaning for this am, afebrile, hgb 8 06/27 in icu, remains comotose, weaning started on peep, no night sweats 06/28 weaning today, off abx, restraints, no distress, h/h stable 06/29 covid 19+, failed weaning, no blood transfusion needed 06/30 icu, on vent, labs reviewed, no distress 07/01 in icu, may need trach, remains on hd per renal, labs noted 07/02 s/p right fem cath, failed wean, no new orders, h/h stable 07/03 is somewhat more responsive, on abx, no bleeding, weaning and HD today 07/04 hd as per renal, weaning off vent, no bleeding today 07/05 obtunded, no bleding overnight, with hd for tomorrow noted, vanc 07/08 no events, remains with trach/vent, dw Rn, no bleeding, cbc is noted 07/09 no overnight events, peg for friday pending consent Objective Objective Current Medications Medications (Trade) Dose Ordered Sig/Anthony Route PRN Reason Start Time Stop Time Status Last Admin Dose Admin Acetaminophen (Tylenol) 650 mg Q4H PRN NG Temp >100.5 06/13/19 11:00 07/13/19 10:59 07/05/19 08:15 Albuterol Sulfate (Proventil MDI) 2 puff Q4HRT INH 06/06/19 23:00 08/30/19 18:59 07/10/19 07:10 Chlorhexidine Gluconate (Michelle-Hex 2%) 1 applic DAILY@1999 TOPIC 06/07/19 20:00 09/05/19 19:59 07/09/19 19:57 Dextrose (Dextrose 50%) 25 ml Q30M PRN IV Hypoglycemia 06/20/19 19:30 09/18/19 19:29 Dextrose (Dextrose 50%) 50 ml Q30M PRN IV Hypoglycemia 06/20/19 19:30 09/18/19 19:29 Dopamine HCl/ Dextrose 250 ml @ 0 mls/hr Q24H PRN IV For hypotension 06/13/19 08:15 09/11/19 08:14 Enoxaparin Sodium (Lovenox) 30 mg DAILY SUBQ 06/07/19 09:00 08/27/19 08:59 07/10/19 08:17 Epoetin Aftab (Epoetin Aftab(ESRD on dialysis)) 10,000 unit FRI-FRI-FRI SUBQ 06/07/19 21:00 08/31/19 20:59 07/09/19 22:05 Fentanyl Citrate 250 ml @ 0 mls/hr Q24H IV 06/24/19 06:00 09/22/19 05:59 07/09/19 21:27 Hydralazine HCl (Apresoline) 10 mg Q4H PRN IV Blood pressure over 160 systol 06/07/19 10:15 09/05/19 10:14 Insulin Aspart (NovoLOG) EVERY 6 HOURS SUBQ 06/21/19 00:00 09/19/19 00:00 07/10/19 05:32 Meropenem 500 mg/ Sodium Chloride 55 ml @ 110 mls/hr Q24H IVPB 07/09/19 18:00 07/14/19 17:59 07/09/19 17:30 Metoclopramide HCl (Reglan) 5 mg Q8H PRN IVP Nausea & Vomiting 06/18/19 12:00 07/18/19 11:59 06/19/19 00:50 Midodrine (Pro-Amatine) 10 mg THREE TIMES A DAY NG 06/09/19 13:00 09/07/19 12:59 07/10/19 08:17 Norepinephrine Bitartrate 8 mg/ Dextrose 283 ml @ 0 mls/hr Q24H IV 06/23/19 23:00 07/23/19 22:59 06/25/19 14:38 Pantoprazole (Protonix) 40 mg DAILY IVP 06/19/19 09:00 07/19/19 08:59 07/10/19 08:17 Sevelamer Carbonate (Renvela) 1,600 mg Q8HR NG 06/25/19 22:00 09/05/19 12:59 07/10/19 05:38 Vancomycin HCl (Vanco rx to dose) 1 ea DAILY PRN MISC Per rx protocol 07/01/19 11:00 07/31/19 10:59 Last 24 Hour Vital Signs Date Time Temp Pulse Resp B/P (MAP) Pulse Ox O2 Delivery O2 Flow Rate FiO2 07/10/19 07:06 129 35 100 Mechanical Ventilator 30 129 32 30 07/10/19 07:00 129 35 113/72 (86) 100 07/10/19 07:00 35 113/72 Mechanical Ventilator 30 07/10/19 06:45 127 32 07/10/19 06:30 127 32 119/73 (88) 100 07/10/19 06:15 126 31 135/74 (94) 100 07/10/19 06:00 118 28 88/57 (67) 100 07/10/19 06:00 28 88/57 Mechanical Ventilator 30 07/10/19 05:30 121 33 114/67 (83) 100 07/10/19 05:00 113 26 118/76 (90) 100 07/10/19 05:00 26 118/76 Mechanical Ventilator 30 07/10/19 04:30 112 26 85/56 (66) 100 07/10/19 04:15 109 26 96/66 (76) 100 07/10/19 04:00 26 95/56 Mechanical Ventilator 30 07/10/19 04:00 30 07/10/19 04:00 99.0 109 26 95/56 (69) 100 07/10/19 04:00 Mechanical Ventilator 07/10/19 03:44 109 26 100 Mechanical Ventilator 30 109 26 30 07/10/19 03:30 112 26 93/61 (72) 100 07/10/19 03:07 111 07/10/19 03:00 115 27 114/71 (85) 100 07/10/19 03:00 27 114/71 Mechanical Ventilator 30 07/10/19 02:30 117 36 125/80 (95) 100 07/10/19 02:00 27 114/74 Mechanical Ventilator 30 07/10/19 02:00 113 27 114/74 (87) 100 07/10/19 01:30 117 29 143/76 (98) 100 07/10/19 01:00 122 30 129/80 (96) 100 07/10/19 01:00 26 129/80 Mechanical Ventilator 30 07/10/19 00:30 119 34 115/77 (90) 100 07/10/19 00:00 30 07/10/19 00:00 114 07/10/19 00:00 Mechanical Ventilator 07/10/19 00:00 26 108/54 Mechanical Ventilator 30 07/10/19 00:00 99.2 114 26 108/64 (79) 100 07/09/19 23:30 116 26 113/71 (85) 100 07/09/19 23:01 110 26 100 Mechanical Ventilator 30 110 26 30 07/09/19 23:00 20 127/84 Mechanical Ventilator 30 07/09/19 23:00 113/71 5/29/20 23:00 114 20 127/84 (98) 100 07/09/19 22:30 117 27 115/65 (82) 100 07/09/19 22:00 27 118/78 Mechanical Ventilator 30 07/09/19 22:00 118 27 118/74 (89) 100 07/09/19 21:30 115 30 127/74 (91) 100 07/09/19 21:27 26 120/72 Mechanical Ventilator 07/09/19 21:00 113 30 136/78 (97) 100 07/09/19 20:30 100.4 112 30 136/81 (99) 100 07/09/19 20:00 30 07/09/19 20:00 113 28 123/75 (91) 100 07/09/19 20:00 Mechanical Ventilator 07/09/19 19:59 114 07/09/19 19:30 108 27 124/77 (93) 100 07/09/19 19:11 105 26 100 Mechanical Ventilator 30 105 26 30 07/09/19 19:00 106 25 120/78 (92) 100 07/09/19 18:00 27 91/68 Mechanical Ventilator 10.0 30 07/09/19 18:00 100.0 102 27 91/68 (76) 100 07/09/19 17:08 102 26 111/83 (92) 100 07/09/19 17:00 26 118/83 Mechanical Ventilator 10.0 30 07/09/19 16:00 30 07/09/19 16:00 Mechanical Ventilator 07/09/19 16:00 26 91/67 Mechanical Ventilator 10.0 30 07/09/19 16:00 98.9 97 26 91/67 (75) 100 07/09/19 15:18 27 128/68 Mechanical Ventilator 10.0 30 07/09/19 15:00 101 27 128/68 (88) 100 07/09/19 14:56 101 26 100 Mechanical Ventilator 30 100 26 30 07/09/19 14:00 17 95/72 Mechanical Ventilator 10.0 30 07/09/19 14:00 103 27 95/72 (80) 100 07/09/19 13:00 14 127/68 Mechanical Ventilator 100.0 30 07/09/19 13:00 106 18 86/60 (69) 100 07/09/19 12:00 30 07/09/19 12:00 14 103/63 Mechanical Ventilator 10.0 30 07/09/19 12:00 Mechanical Ventilator 07/09/19 12:00 120 07/09/19 12:00 100.0 113 16 103/63 (76) 100 07/09/19 11:15 103 16 112/72 (85) 100 07/09/19 11:00 103 0 100 07/09/19 11:00 103 0 100 07/09/19 11:00 15 112/72 Mechanical Ventilator 10.0 30 07/09/19 10:49 104 27 100 Mechanical Ventilator 30 102 26 30 07/09/19 10:00 105 17 100 07/09/19 10:00 15 111/69 Mechanical Ventilator 10.0 30 07/09/19 10:00 105 17 111/69 (83) 100 07/09/19 09:45 108 14 89/57 (68) 100 07/09/19 09:45 108 14 89/57 (68) 100 07/09/19 09:30 112 24 112/68 (83) 100 07/09/19 09:30 112 24 112/68 (83) 100 07/09/19 09:15 128/71 (90) 07/09/19 09:15 128/71 (90) 07/09/19 09:00 124/71 (88) 07/09/19 09:00 16 124/71 Mechanical Ventilator 10.0 30 07/09/19 09:00 124/71 (88) 07/09/19 08:45 107 26 93/70 (78) 100 07/09/19 08:45 107 26 93/70 (78) 100 07/09/19 08:30 112 27 135/73 (93) 100 07/09/19 08:30 112 27 135/73 (93) 100 07/09/19 08:15 106 1 81/55 (64) 100 07/09/19 08:15 106 1 81/55 (64) 100 07/09/19 08:01 119 07/09/19 08:00 101.0 07/09/19 08:00 30 07/09/19 08:00 114 6 122/68 (86) 100 07/09/19 08:00 Mechanical Ventilator 07/09/19 08:00 17 122/68 Mechanical Ventilator 10.0 30 07/09/19 08:00 114 6 122/68 (86) 100 07/09/19 07:00 117 27 100 Mechanical Ventilator 30 115 29 30 07/09/19 07:00 27 132/73 Mechanical Ventilator 30 07/09/19 07:00 116 27 128/84 (99) 100 07/09/19 06:30 114 27 07/09/19 06:30 114 27 132/73 (92) 100 07/09/19 06:00 23 130/69 Mechanical Ventilator 30 07/09/19 06:00 112 23 130/69 (89) 100 07/09/19 05:30 109 24 123/74 (90) 100 07/09/19 05:00 106 25 107/60 (76) 100 07/09/19 05:00 25 107/60 Mechanical Ventilator 30 07/09/19 04:30 106 22 124/72 (89) 100 07/09/19 04:00 108 07/09/19 04:00 Mechanical Ventilator 07/09/19 04:00 27 120/78 Mechanical Ventilator 30 07/09/19 04:00 99.2 108 23 120/78 (92) 100 07/09/19 04:00 30 07/09/19 03:30 103 26 133/74 (93) 100 07/09/19 03:12 97 26 100 Mechanical Ventilator 30 97 28 30 07/09/19 03:00 111 27 140/75 (96) 100 07/09/19 03:00 27 140/75 Mechanical Ventilator 07/09/19 02:30 109 27 135/71 (92) 100 07/09/19 02:00 26 127/77 Mechanical Ventilator 30 07/09/19 02:00 110 26 127/77 (94) 100 07/09/19 01:30 105 28 139/76 (97) 100 07/09/19 01:00 109 26 141/72 (95) 100 07/09/19 01:00 26 141/72 Mechanical Ventilator 30 07/09/19 00:30 109 26 145/84 (104) 100 07/09/19 00:00 111 07/09/19 00:00 Mechanical Ventilator 07/09/19 00:00 26 151/76 Mechanical Ventilator 30 07/09/19 00:00 98.9 111 24 151/76 (101) 100 07/09/19 00:00 30 07/08/19 23:30 108 27 146/76 (99) 100 07/08/19 23:00 108 26 132/75 (94) 100 07/08/19 23:00 26 132/75 Mechanical Ventilator 30 07/08/19 23:00 146/76 07/08/19 22:56 109 26 100 Mechanical Ventilator 30 105 28 30 07/08/19 22:30 107 24 116/85 (95) 100 07/08/19 22:00 108 25 130/72 (91) 100 07/08/19 22:00 25 130/72 Mechanical Ventilator 30 07/08/19 21:30 104 26 102/71 (81) 100 07/08/19 21:00 98 27 133/86 (102) 100 07/08/19 21:00 26 133/86 Mechanical Ventilator 30 07/08/19 20:30 101 26 138/76 (96) 100 07/08/19 20:00 Mechanical Ventilator 07/08/19 20:00 28 108/69 Mechanical Ventilator 30 07/08/19 20:00 30 07/08/19 20:00 98.9 105 28 108/69 (82) 100 07/08/19 19:39 100 07/08/19 19:30 105 26 112/63 (79) 100 07/08/19 19:02 102 28 100 Mechanical Ventilator 30 105 28 30 07/08/19 19:00 104 26 111/69 (83) 100 07/08/19 19:00 27 111/69 Mechanical Ventilator 30 07/08/19 18:00 95 24 115/65 (82) 100 07/08/19 18:00 26 104/63 Mechanical Ventilator 30 07/08/19 17:30 99.0 95 26 88/55 (66) 100 07/08/19 17:00 26 116/70 Mechanical Ventilator 30 07/08/19 17:00 99 26 116/70 (85) 100 07/08/19 16:30 108 23 126/75 (92) 100 07/08/19 16:00 30 07/08/19 16:00 110 25 138/82 (100) 100 07/08/19 16:00 Mechanical Ventilator 07/08/19 16:00 26 138/82 Mechanical Ventilator 30 07/08/19 15:30 112 26 116/79 (91) 100 07/08/19 15:23 117 07/08/19 15:01 113 27 100 Mechanical Ventilator 30 115 26 30 5/28/20 15:00 26 86/66 Mechanical Ventilator 30 07/08/19 15:00 112 26 86/66 (73) 95 07/08/19 14:00 119 26 121/76 (91) 98 07/08/19 14:00 26 121/76 Mechanical Ventilator 30 07/08/19 13:30 114 15 83/58 (66) 98 07/08/19 13:00 119 26 81/58 (66) 96 07/08/19 13:00 26 101/84 Mechanical Ventilator 30 07/08/19 12:30 99.3 139 18 128/84 (99) 98 07/08/19 12:00 Mechanical Ventilator 07/08/19 12:00 138 31 116/91 (99) 91 07/08/19 12:00 129 07/08/19 12:00 36 116/91 Mechanical Ventilator 30 07/08/19 12:00 30 07/08/19 11:30 142 51 141/89 (106) 93 07/08/19 11:03 123 26 100 Mechanical Ventilator 30 115 26 30 07/08/19 11:00 126 29 102/88 (93) 100 07/08/19 11:00 26 102/88 Mechanical Ventilator 30 07/08/19 10:45 122 26 91/60 (70) 100 07/08/19 10:30 130 26 82/63 (69) 100 07/08/19 10:15 142 26 115/83 (94) 100 07/08/19 10:11 128 15 100 07/08/19 10:10 130 15 100 07/08/19 10:00 99.8 143 120/78 (92) 07/08/19 10:00 26 119/78 Mechanical Ventilator 30 07/08/19 10:00 30 07/08/19 10:00 Mechanical Ventilator 07/08/19 09:02 100 21 84/60 (68) 100 07/08/19 09:00 16 88/60 Mechanical Ventilator 30 07/08/19 09:00 100 20 88/60 (69) 100 Intake and Output 07/09/19 07/10/19 19:00 07:00 Intake Total 425 ml 628 ml Output Total 1010 ml 10 ml Balance -585 ml 618 ml Free Water 100 ml IV Total 55 ml 113 ml Tube Feeding 150 ml 415 ml Other 120 ml 100 ml Output Urine Total 10 ml 10 ml Hemodialysis UF 1000 ml # Bowel Movements 1 Labs Test 07/07/19 09:59 07/08/19 04:44 07/09/19 04:15 07/10/19 04:00 Arterial Blood pH 7.411 (7.350-7.450) Arterial Blood Partial Pressure CO2 42.3 mmHg (35.0-45.0) Arterial Blood Partial Pressure O2 107.3 mmHg (75.0-100.0) Arterial Blood HCO3 26.3 mmol/L (22.0-26.0) Arterial Blood Oxygen Saturation 97.9 % (95-100) Arterial Blood Base Excess 1.5 (-2-2) Kosta Test Positive White Blood Count 16.4 K/UL (4.8-10.8) 18.2 K/UL (4.8-10.8) 18.5 K/UL (4.8-10.8) Red Blood Count 3.33 M/UL (4.70-6.10) 3.23 M/UL (4.70-6.10) 3.34 M/UL (4.70-6.10) Hemoglobin 9.5 G/DL (14.2-18.0) 9.4 G/DL (14.2-18.0) 9.5 G/DL (14.2-18.0) Hematocrit 30.5 % (42.0-52.0) 29.8 % (42.0-52.0) 30.8 % (42.0-52.0) Mean Corpuscular Volume 92 FL (80-99) 92 FL (80-99) 92 FL (80-99) Mean Corpuscular Hemoglobin 28.6 PG (27.0-31.0) 29.1 PG (27.0-31.0) 28.5 PG (27.0-31.0) Mean Corpuscular Hemoglobin Concent 31.2 G/DL (32.0-36.0) 31.5 G/DL (32.0-36.0) 31.0 G/DL (32.0-36.0) Red Cell Distribution Width 16.7 % (11.6-14.8) 16.2 % (11.6-14.8) 16.7 % (11.6-14.8) Platelet Count 506 K/UL (150-450) 506 K/UL (150-450) 407 K/UL (150-450) Mean Platelet Volume 6.0 FL (6.5-10.1) 5.7 FL (6.5-10.1) 6.1 FL (6.5-10.1) Neutrophils (%) (Auto) 77.8 % (45.0-75.0) % (45.0-75.0) % (45.0-75.0) Lymphocytes (%) (Auto) 12.4 % (20.0-45.0) % (20.0-45.0) % (20.0-45.0) Monocytes (%) (Auto) 7.0 % (1.0-10.0) % (1.0-10.0) % (1.0-10.0) Eosinophils (%) (Auto) 2.1 % (0.0-3.0) % (0.0-3.0) % (0.0-3.0) Basophils (%) (Auto) 0.8 % (0.0-2.0) % (0.0-2.0) % (0.0-2.0) Sodium Level 145 MMOL/L (136-145) 143 MMOL/L (136-145) 141 MMOL/L (136-145) Potassium Level 4.3 MMOL/L (3.5-5.1) 4.7 MMOL/L (3.5-5.1) 4.2 MMOL/L (3.5-5.1) Chloride Level 100 MMOL/L (98-107) 100 MMOL/L (98-107) 97 MMOL/L (98-107) Carbon Dioxide Level 27 MMOL/L (21-32) 26 MMOL/L (21-32) 25 MMOL/L (21-32) Anion Gap 18 mmol/L (5-15) 17 mmol/L (5-15) 19 mmol/L (5-15) Blood Urea Nitrogen 72 mg/dL (7-18) 86 mg/dL (7-18) 73 mg/dL (7-18) Creatinine 9.9 MG/DL (0.55-1.30) 11.8 MG/DL (0.55-1.30) 10.3 MG/DL (0.55-1.30) Estimat Glomerular Filtration Rate 5.3 mL/min (>60) 4.3 mL/min (>60) 5.1 mL/min (>60) Glucose Level 188 MG/DL (74-106) 180 MG/DL (74-106) 223 MG/DL (74-106) Calcium Level 9.9 MG/DL (8.5-10.1) 10.0 MG/DL (8.5-10.1) 9.9 MG/DL (8.5-10.1) Phosphorus Level 5.6 MG/DL (2.5-4.9) 6.5 MG/DL (2.5-4.9) Magnesium Level 2.9 MG/DL (1.8-2.4) 3.1 MG/DL (1.8-2.4) Total Bilirubin 0.5 MG/DL (0.2-1.0) 0.5 MG/DL (0.2-1.0) Aspartate Amino Transf (AST/SGOT) 38 U/L (15-37) 34 U/L (15-37) Alanine Aminotransferase (ALT/SGPT) 19 U/L (12-78) 21 U/L (12-78) Alkaline Phosphatase 98 U/L (46-116) 94 U/L (46-116) C-Reactive Protein, Quantitative 7.2 mg/dL (0.00-0.90) 6.3 mg/dL (0.00-0.90) Pro-B-Type Natriuretic Peptide 07468 pg/mL (0-125) 14633 pg/mL (0-125) Total Protein 10.0 G/DL (6.4-8.2) 10.1 G/DL (6.4-8.2) Albumin 3.0 G/DL (3.4-5.0) 3.3 G/DL (3.4-5.0) Globulin 7.0 g/dL 6.8 g/dL Albumin/Globulin Ratio 0.4 (1.0-2.7) 0.5 (1.0-2.7) Differential Total Cells Counted 100 Neutrophils % (Manual) 94 % (45-75) Lymphocytes % (Manual) 3 % (20-45) Monocytes % (Manual) 2 % (1-10) Eosinophils % (Manual) 1 % (0-3) Basophils % (Manual) 0 % (0-2) Band Neutrophils 0 % (0-8) Platelet Estimate Increased Platelet Morphology Normal Anisocytosis 1+ Random Vancomycin Level 28.7 ug/mL Height (Feet): 6 Height (Inches): 1.00 Weight (Pounds): 161 Objective Sp02 EP Interpretation: reviewed General: nv, confused, sedated Heent: bilateral eye normal inspection, bilateral eye PERRL ++Ng Respiratory: normal breath sounds, no respiratory distress, intubated/vent +++ trach+++ Cardiovascular: regular rate, rhythm, no edema Gastrointestinal: normal inspection, soft, non-distended Rectal: deferred Musculoskeletal: normal range of motion, non-tender, R fem cath++ Neurologic: alert, motor strength/tone normal, sensory intact, responsive, speech normal Skin: Decubitus/Ulcer - See RN skin exam. : jamaal+ Greg Cabral MD July 10, 2019 08:51
--- NOTE | 2019-07-10 12:22 | Nephrology Progress Note ---
Assessment/Plan Problem List: (1) CASSANDRA (acute kidney injury) (2) Anemia in chronic kidney disease (CKD) (3) HTN (hypertension) (4) COVID-19 Assessment Acute renal failure most likely superimposed on chronic kidney disease Suspected COVID-19 virus infection Possible Pneumonia, lymphopenia, elevated AST Cardiomegaly, possible CHF COPD Hypertension Anemia, most likely related to chronic kidney disease Plan July 09: Dialyzed yesterday. Labs reviewed. Medication reviewed. Next hemodialysis July 11. July 08: Patient has tracheostomy now. Connected to ventilator. Due for dialysis today. Continue per consultants. Discussed with SHANIQUE Romero. July 07: Patient is due for tracheostomy today. Patient was last dialyzed July 05. Will order dialysis for tomorrow. July 06: Patient is intubated on ventilator however the plan is to extubate today. Patient was dialysis yesterday July 05. The dialysis time was cut short due to patient's respiratory distress. Only 1 L was removed during dialysis yesterday. Today's lab reviewed. Continue per consultants. Will arrange for dialysis as needed. July 05: Patient due for dialysis today. Remains intubated. Will schedule permacath placement in a.m. blood cultures on July 04 are negative. July 04: Patient was dialyzed yesterday. Due for dialysis tomorrow. Continues to be intubated. After tomorrow's dialysis will order a permacath. July 03: Dialysis is about to be started now Continues to be intubated Will plan to remove the femoral dialysis catheter and exchanged for a new temporary catheter per ID recommendation We will check surveillance blood culture tomorrow July 02: Patient was dialyzed yesterday and due for dialysis tomorrow Stable from renal standpoint W on dialysis Continue per consultants, weaning....... etc. July 01: Dialysis today Other status unchanged June 30: Due for dialysis tomorrow Remains intubated on ventilator Labs and medication reviewed Discussed with RN Stable from renal standpoint of view June 29: Dialyzed yesterday Due for dialysis tomorrow Stable from renal standpoint to view Keeps failing weaning process June 28: Patient due for dialysis today Stable from renal standpoint to view Continue per consultants June 27: Labs reviewed Due due for dialysis June 28 Discussed with SHANIQUE Dick Continue per consultants Remains intubated on ventilator June 26 Labs reviewed Dialyzed yesterday Started on weaning today Continue to monitor renal parameters June 16: On dialysis now Potassium supplement implemented Continue per consultants Next dialysis June 27June 15: Status unchanged Dialyzed yesterday will dialyze again tomorrow Potassium supplements given Discussed with RN June 14: Due dialysis today Status: Remains intubated on ventilator June 22: Status unchanged Dialyzed yesterday and duefordialysistomorrow Serum sodium stable today June 21 Remains intubated on ventilator Due dialysis today Emphasized high sodium bath for dialysis June 20: Remains intubated on ventilator Dialyzed June 19 next dialysis June 21 Serum sodium 128, will give 250 cc 3% saline Remains full code Discussed with RN Iron panel ordered June 19: Discussed with RN. Patient due for dialysis today. Continue pulmonary support. Remains full code. June 18: Patient dialyzed yesterday June 17 Serum sodium improved but still low Arrange for dialysis tomorrow June 19 Continue per consultants June 8: Due for dialysis today Today's lab reviewed, low serum sodium noted, Emphasized on high sodium bath to dialysis nurse Discussed with SHANIQUE Yuen June 16: Dialyzed yesterday Remains intubated Labs reviewed, serum sodium 131 Plan to dialyze tomorrow June 17 with high sodium bath Discussed with SHANIQUE Yuen June 6: Due for dialysis today Labs reviewed Discussed with RN Transfuse 1 unit of packed RBCs today for low hemoglobin of 7.1 June 5: Blood pressure well maintained Receive dialysis June 13 next hemodialysis June 15June 4: Discussed with RN in ICU Patient did not receive proper dialysis yesterday due to dialysis catheter malfunction Catheter to be adjusted today and dialyzed to be resumed today Continue per consultants Positive for COVID 28 June 2: Patient now intubated on mechanical ventilation Discussed with SHANIQUE Yuen, today June 12 Patient received dialysis yesterday June 10 next hemodialysis June 12 Blood pressure better maintained Today's labs reviewed Continue per consultants Previously patient received dialysis last evening June 05, next dialysis June 07 which was incomplete due to patient's hypotension Will start on midodrine for blood pressure support. Meanwhile continue other pressors as needed Previously Patient is doing poorly, septic, white blood cells are rising, Hypotension somewhat improved We will keep n.p.o. , NG tube for medications, and change medication to IV as needed Patient remains full code Monitor vancomycin level Previously: Patient pulled out his femoral catheter yesterday June 03 which was reinserted by Dr. Mast Patient scheduled for dialysis again June 04, which again was not done due to dialysis nurse citing catheter malfunction Meanwhile continue management per ID, pulmonary , and psych. Meanwhile white blood cell count is rising. Patient blood pressure borderline low. Will check ABG Previously May 31 : I believe patient need dialysis treatment He however needs to competency assessment if can make decisions or not I will communicate with Dr. Mulligan Previously: Per pulmonary and ID advice Adjust blood pressure medication Renal diet Anemia work-up 2D echocardiogram refused Kidney ultrasound refused Jules catheter Urine studies Per orders Subjective ROS Limited/Unobtainable: Yes Objective Objective Last 24 Hour Vital Signs Date Time Temp Pulse Resp B/P (MAP) Pulse Ox O2 Delivery O2 Flow Rate FiO2 07/10/19 11:11 124 35 100 Mechanical Ventilator 30 122 34 30 07/10/19 09:30 124 32 137/76 (96) 100 07/10/19 09:10 100 07/10/19 09:00 120 26 94/60 (71) 100 07/10/19 08:30 126 32 109/81 (90) 100 07/10/19 08:00 98.8 126 31 112/77 (89) 100 07/10/19 08:00 30 07/10/19 08:00 Mechanical Ventilator 07/10/19 07:30 126 34 122/71 (88) 100 07/10/19 07:06 129 35 100 Mechanical Ventilator 30 129 32 30 07/10/19 07:00 129 35 113/72 (86) 100 07/10/19 07:00 35 113/72 Mechanical Ventilator 30 07/10/19 06:45 127 32 07/10/19 06:30 127 32 119/73 (88) 100 07/10/19 06:15 126 31 135/74 (94) 100 07/10/19 06:00 118 28 88/57 (67) 100 07/10/19 06:00 28 88/57 Mechanical Ventilator 30 07/10/19 05:30 121 33 114/67 (83) 100 07/10/19 05:00 113 26 118/76 (90) 100 07/10/19 05:00 26 118/76 Mechanical Ventilator 30 07/10/19 04:30 112 26 85/56 (66) 100 07/10/19 04:15 109 26 96/66 (76) 100 07/10/19 04:00 26 95/56 Mechanical Ventilator 30 07/10/19 04:00 30 07/10/19 04:00 99.0 109 26 95/56 (69) 100 07/10/19 04:00 Mechanical Ventilator 07/10/19 03:44 109 26 100 Mechanical Ventilator 30 109 26 30 07/10/19 03:30 112 26 93/61 (72) 100 07/10/19 03:07 111 07/10/19 03:00 115 27 114/71 (85) 100 07/10/19 03:00 27 114/71 Mechanical Ventilator 30 07/10/19 02:30 117 36 125/80 (95) 100 07/10/19 02:00 27 114/74 Mechanical Ventilator 30 07/10/19 02:00 113 27 114/74 (87) 100 07/10/19 01:30 117 29 143/76 (98) 100 07/10/19 01:00 122 30 129/80 (96) 100 07/10/19 01:00 26 129/80 Mechanical Ventilator 30 07/10/19 00:30 119 34 115/77 (90) 100 07/10/19 00:00 30 07/10/19 00:00 114 07/10/19 00:00 Mechanical Ventilator 07/10/19 00:00 26 108/54 Mechanical Ventilator 30 07/10/19 00:00 99.2 114 26 108/64 (79) 100 07/09/19 23:30 116 26 113/71 (85) 100 07/09/19 23:01 110 26 100 Mechanical Ventilator 30 110 26 30 07/09/19 23:00 20 127/84 Mechanical Ventilator 30 07/09/19 23:00 113/71 07/09/19 23:00 114 20 127/84 (98) 100 07/09/19 22:30 117 27 115/65 (82) 100 07/09/19 22:00 27 118/78 Mechanical Ventilator 30 07/09/19 22:00 118 27 118/74 (89) 100 07/09/19 21:30 115 30 127/74 (91) 100 07/09/19 21:27 26 120/72 Mechanical Ventilator 07/09/19 21:00 113 30 136/78 (97) 100 07/09/19 20:30 100.4 112 30 136/81 (99) 100 07/09/19 20:00 30 07/09/19 20:00 113 28 123/75 (91) 100 07/09/19 20:00 Mechanical Ventilator 07/09/19 19:59 114 07/09/19 19:30 108 27 124/77 (93) 100 07/09/19 19:11 105 26 100 Mechanical Ventilator 30 105 26 30 07/09/19 19:00 106 25 120/78 (92) 100 07/09/19 18:00 27 91/68 Mechanical Ventilator 10.0 30 07/09/19 18:00 100.0 102 27 91/68 (76) 100 07/09/19 17:08 102 26 111/83 (92) 100 07/09/19 17:00 26 118/83 Mechanical Ventilator 10.0 30 07/09/19 16:00 30 07/09/19 16:00 Mechanical Ventilator 07/09/19 16:00 26 91/67 Mechanical Ventilator 10.0 30 07/09/19 16:00 98.9 97 26 91/67 (75) 100 07/09/19 15:18 27 128/68 Mechanical Ventilator 10.0 30 07/09/19 15:00 101 27 128/68 (88) 100 07/09/19 14:56 101 26 100 Mechanical Ventilator 30 100 26 30 07/09/19 14:00 17 95/72 Mechanical Ventilator 10.0 30 07/09/19 14:00 103 27 95/72 (80) 100 07/09/19 13:00 14 127/68 Mechanical Ventilator 100.0 30 07/09/19 13:00 106 18 86/60 (69) 100 Intake and Output 07/09/19 07/10/19 18:59 06:59 Intake Total 430 ml 588 ml Output Total 1010 ml 10 ml Balance -580 ml 578 ml Free Water 100 ml IV Total 60 ml 108 ml Tube Feeding 150 ml 380 ml Other 120 ml 100 ml Output Urine Total 10 ml 10 ml Hemodialysis UF 1000 ml # Bowel Movements 1 Laboratory Tests 07/10/19 04:00: White Blood Count 18.5H, Red Blood Count 3.34L, Hemoglobin 9.5L, Hematocrit 30.8L, Mean Corpuscular Volume 92, Mean Corpuscular Hemoglobin 28.5, Mean Corpuscular Hemoglobin Concent 31.0L, Red Cell Distribution Width 16.7H, Platelet Count 407, Mean Platelet Volume 6.1L, Neutrophils (%) (Auto) , Lymphocytes (%) (Auto) , Monocytes (%) (Auto) , Eosinophils (%) (Auto) , Basophils (%) (Auto) , Differential Total Cells Counted 100, Neutrophils % ( Manual) 84H, Lymphocytes % (Manual) 9L, Monocytes % (Manual) 6, Eosinophils % ( Manual) 1, Basophils % (Manual) 0, Band Neutrophils 0, Platelet Estimate Adequate, Platelet Morphology Normal, Polychromasia 1+, Hypochromasia 1+, Anisocytosis 1+, Sodium Level 141, Potassium Level 4.2, Chloride Level 97L, Carbon Dioxide Level 25, Anion Gap 19H, Blood Urea Nitrogen 73H, Creatinine 10.3H, Estimat Glomerular Filtration Rate 5.1, Glucose Level 223H, Calcium Level 9.9, Random Vancomycin Level 28.7 Height (Feet): 6 Height (Inches): 1.00 Weight (Pounds): 161 General Appearance: no apparent distress EENT: other - Trached and vent Cardiovascular: tachycardia Respiratory/Chest: decreased breath sounds Abdomen: soft Objective No change Mic Cole MD July 10, 2019 12:22
--- NOTE | 2019-07-10 13:59 | Surgery Progress Note ---
Surgery Progress Note Subjective Procedure Performed tracheostomy Additional Comments persistent leukocytosis anemia trach stable line okay Objective Last 24 Hour Vital Signs Date Time Temp Pulse Resp B/P (MAP) Pulse Ox O2 Delivery O2 Flow Rate FiO2 07/10/19 13:00 142 38 140/96 (111) 100 07/10/19 12:30 123 36 136/85 (102) 100 07/10/19 12:00 138 07/10/19 12:00 128 31 87/63 (71) 100 07/10/19 11:30 129 32 101/61 (74) 100 07/10/19 11:11 124 35 100 Mechanical Ventilator 30 122 34 30 07/10/19 11:00 125 31 120/75 (90) 100 07/10/19 10:30 122 29 121/71 (88) 100 07/10/19 10:00 118 26 105/61 (76) 100 07/10/19 09:30 124 32 137/76 (96) 100 07/10/19 09:10 100 07/10/19 09:00 120 26 94/60 (71) 100 07/10/19 08:30 126 32 109/81 (90) 100 07/10/19 08:00 128 07/10/19 08:00 98.8 126 31 112/77 (89) 100 07/10/19 08:00 30 07/10/19 08:00 Mechanical Ventilator 07/10/19 08:00 122 07/10/19 07:30 126 34 122/71 (88) 100 07/10/19 07:06 129 35 100 Mechanical Ventilator 30 129 32 30 07/10/19 07:00 129 35 113/72 (86) 100 07/10/19 07:00 35 113/72 Mechanical Ventilator 30 07/10/19 06:45 127 32 07/10/19 06:30 127 32 119/73 (88) 100 07/10/19 06:15 126 31 135/74 (94) 100 07/10/19 06:00 118 28 88/57 (67) 100 07/10/19 06:00 28 88/57 Mechanical Ventilator 30 07/10/19 05:30 121 33 114/67 (83) 100 07/10/19 05:00 113 26 118/76 (90) 100 07/10/19 05:00 26 118/76 Mechanical Ventilator 30 07/10/19 04:30 112 26 85/56 (66) 100 07/10/19 04:15 109 26 96/66 (76) 100 07/10/19 04:00 26 95/56 Mechanical Ventilator 30 07/10/19 04:00 30 07/10/19 04:00 99.0 109 26 95/56 (69) 100 07/10/19 04:00 Mechanical Ventilator 07/10/19 03:44 109 26 100 Mechanical Ventilator 30 109 26 30 07/10/19 03:30 112 26 93/61 (72) 100 07/10/19 03:07 111 07/10/19 03:00 115 27 114/71 (85) 100 07/10/19 03:00 27 114/71 Mechanical Ventilator 30 07/10/19 02:30 117 36 125/80 (95) 100 07/10/19 02:00 27 114/74 Mechanical Ventilator 30 07/10/19 02:00 113 27 114/74 (87) 100 07/10/19 01:30 117 29 143/76 (98) 100 07/10/19 01:00 122 30 129/80 (96) 100 07/10/19 01:00 26 129/80 Mechanical Ventilator 30 07/10/19 00:30 119 34 115/77 (90) 100 07/10/19 00:00 30 07/10/19 00:00 114 07/10/19 00:00 Mechanical Ventilator 07/10/19 00:00 26 108/54 Mechanical Ventilator 30 07/10/19 00:00 99.2 114 26 108/64 (79) 100 07/09/19 23:30 116 26 113/71 (85) 100 07/09/19 23:01 110 26 100 Mechanical Ventilator 30 110 26 30 07/09/19 23:00 20 127/84 Mechanical Ventilator 30 07/09/19 23:00 113/71 07/09/19 23:00 114 20 127/84 (98) 100 07/09/19 22:30 117 27 115/65 (82) 100 07/09/19 22:00 27 118/78 Mechanical Ventilator 30 07/09/19 22:00 118 27 118/74 (89) 100 07/09/19 21:30 115 30 127/74 (91) 100 07/09/19 21:27 26 120/72 Mechanical Ventilator 5/29/20 21:00 113 30 136/78 (97) 100 07/09/19 20:30 100.4 112 30 136/81 (99) 100 07/09/19 20:00 30 07/09/19 20:00 113 28 123/75 (91) 100 07/09/19 20:00 Mechanical Ventilator 07/09/19 19:59 114 07/09/19 19:30 108 27 124/77 (93) 100 07/09/19 19:11 105 26 100 Mechanical Ventilator 30 105 26 30 07/09/19 19:00 106 25 120/78 (92) 100 07/09/19 18:00 27 91/68 Mechanical Ventilator 10.0 30 07/09/19 18:00 100.0 102 27 91/68 (76) 100 07/09/19 17:08 102 26 111/83 (92) 100 07/09/19 17:00 26 118/83 Mechanical Ventilator 10.0 30 07/09/19 16:00 30 07/09/19 16:00 Mechanical Ventilator 07/09/19 16:00 26 91/67 Mechanical Ventilator 10.0 30 07/09/19 16:00 98.9 97 26 91/67 (75) 100 07/09/19 15:18 27 128/68 Mechanical Ventilator 10.0 30 07/09/19 15:00 101 27 128/68 (88) 100 07/09/19 14:56 101 26 100 Mechanical Ventilator 30 100 26 30 07/09/19 14:00 17 95/72 Mechanical Ventilator 10.0 30 07/09/19 14:00 103 27 95/72 (80) 100 I&O Intake and Output 07/09/19 07/10/19 19:00 07:00 Intake Total 425 ml 628 ml Output Total 1010 ml 10 ml Balance -585 ml 618 ml Free Water 100 ml IV Total 55 ml 113 ml Tube Feeding 150 ml 415 ml Other 120 ml 100 ml Output Urine Total 10 ml 10 ml Hemodialysis UF 1000 ml # Bowel Movements 1 Dressing: other Wound: other Drains: other Cardiovascular: RSR Respiratory: decreased breath sounds Abdomen: soft, non-tender, present bowel sounds Extremities: no cyanosis Laboratory Tests Test 07/10/19 04:00 White Blood Count 18.5 K/UL (4.8-10.8) H Red Blood Count 3.34 M/UL (4.70-6.10) L Hemoglobin 9.5 G/DL (14.2-18.0) L Hematocrit 30.8 % (42.0-52.0) L Mean Corpuscular Volume 92 FL (80-99) Mean Corpuscular Hemoglobin 28.5 PG (27.0-31.0) Mean Corpuscular Hemoglobin Concent 31.0 G/DL (32.0-36.0) L Red Cell Distribution Width 16.7 % (11.6-14.8) H Platelet Count 407 K/UL (150-450) Mean Platelet Volume 6.1 FL (6.5-10.1) L Neutrophils (%) (Auto) % (45.0-75.0) Lymphocytes (%) (Auto) % (20.0-45.0) Monocytes (%) (Auto) % (1.0-10.0) Eosinophils (%) (Auto) % (0.0-3.0) Basophils (%) (Auto) % (0.0-2.0) Differential Total Cells Counted 100 Neutrophils % (Manual) 84 % (45-75) H Lymphocytes % (Manual) 9 % (20-45) L Monocytes % (Manual) 6 % (1-10) Eosinophils % (Manual) 1 % (0-3) Basophils % (Manual) 0 % (0-2) Band Neutrophils 0 % (0-8) Platelet Estimate Adequate Platelet Morphology Normal Polychromasia 1+ Hypochromasia 1+ Anisocytosis 1+ Sodium Level 141 MMOL/L (136-145) Potassium Level 4.2 MMOL/L (3.5-5.1) Chloride Level 97 MMOL/L (98-107) L Carbon Dioxide Level 25 MMOL/L (21-32) Anion Gap 19 mmol/L (5-15) H Blood Urea Nitrogen 73 mg/dL (7-18) H Creatinine 10.3 MG/DL (0.55-1.30) H Estimat Glomerular Filtration Rate 5.1 mL/min (>60) Glucose Level 223 MG/DL (74-106) H Calcium Level 9.9 MG/DL (8.5-10.1) Random Vancomycin Level 28.7 ug/mL Plan Problems: (1) Suspected COVID-19 virus infection (2) HTN (hypertension) (3) CASSANDRA (acute kidney injury) Assessment & Plan: Needs urgent HD needs access patient okay and consented see note will follow with recs new line placed discussed with team and nephrology HD line functional when checked has TPA now please use appropriately Cathflo used again this flow during dialysis on 430 was low. Will monitor may need line change 5/4 plan for HD as per renal may need to take fluid off with HD edema anasarca dressings saturated and changed will monitor cont with HD (4) Anemia in chronic kidney disease (CKD) (5) Anemia (6) Renal failure (7) Suspected COVID-19 virus infection Assessment & Plan: Pt deconditioned and despite all skin preventions Pt noted to have developed several pressure injuries. . Stable dry eschar noted to clefts of R and L ears. No erythema noted . DTPI noted to L trochanter. Base of injury is maroon in colour with marginal erythema along borders. Partially opened DTPI Sacrum, R and L Buttocks. Base of wound is maroon with two small open wounds L sacrum and L buttocks. Pt has an APM/MOMO Mattress overlay and is being positioned with pillows as per tolerance and within protocols. worsening despite medical efforts will cont to provide therapy Tx.Plan: Apply Cavilon Skin Barrier to both ears Daily and prn. Apply Moisture Barrier Paste to Sacrum,R and L Buttocks. Cover with Optifoam drsgs. Change every 3 days and PRN. Apply Cavilon Skin Barrier to R and L trochanter. Cover each site with Optifoam drsgs.Change every 7 days and PRN. Apply Cavilon Skin Barrier to both heels. Cover each heel with Optifoam drsg. Change every 7 days and prn. Off-load heels with pillow. Reposition at least every 2hours or as tolerated. APM/MOMO Mattress overlay. (8) COVID-19 Assessment & Plan: COVID + c diff negative febrile leukocytosis renal insufficiency see above cont resp care Rx as per ID worsening on vent support now cxr noted on pressors prognosis guarded repeat covid ++ weaning vent and pressors off slowly showing improvement slowly recovering will need trach as unable to wean vent safely [facility]. consent obtained s/p trach pending peg Yaniv Mast July 10, 2019 13:59
[2019-07-10] MEDS: Meropenem 500 MG in NS 55 ML IVPB SCH (17:26)
[2019-07-10] MEDS: Acetaminophen 650mg/20.3ml NG PRN (18:12)
[2019-07-10] MEDS: Dyna-Hex 2% Top Sol 2oz TOPIC SCH (20:08)
[2019-07-10] MEDS: NOREPINEPHRINE BITARTRATE IV SCH ×3 (20:15)
[2019-07-10] MEDS: D5W IV SCH ×3 (20:15)
--- NOTE | 2019-07-10 20:20 | General Progress Note ---
Assessment/Plan Problem List: (1) HTN (hypertension) ICD Codes: I10 - Essential (primary) hypertension SNOMED: 41947222 (2) CASSANDRA (acute kidney injury) ICD Codes: N17.9 - Acute kidney failure, unspecified SNOMED: 2834674, 14215366 (3) Anemia in chronic kidney disease (CKD) ICD Codes: N18.9 - Chronic kidney disease, unspecified; D63.1 - Anemia in chronic kidney disease SNOMED: 279440582 (4) Renal failure ICD Codes: N19 - Unspecified kidney failure SNOMED: 82596403 (5) Respiratory failure requiring intubation ICD Codes: J96.90 - Respiratory failure, unspecified, unspecified whether with hypoxia or hypercapnia; A41.89 - Other specified sepsis SNOMED: 877169768, 452623326 (6) Pneumonia due to COVID-19 virus ICD Codes: U07.1 - COVID-19; J12.89 - Other viral pneumonia SNOMED: 258294903, 185526903 (7) Sepsis due to severe acute respiratory syndrome coronavirus 2 (SARS-CoV-2) ICD Codes: U07.1 - COVID-19; A41.89 - Other specified sepsis SNOMED: 462499609, 749702625 Status: unchanged Assessment/Plan: persistent leukocytosis s/p trach peg per dr deleon prn pressors still getting diaylsis covid positive pna resp failure malnutrition lytes are ok sepstic shocl Subjective ROS Limited/Unobtainable: Yes Allergies: Coded Allergies: No Known Allergies (Unverified , 05/28/19) Objective Last 24 Hour Vital Signs Date Time Temp Pulse Resp B/P (MAP) Pulse Ox O2 Delivery O2 Flow Rate FiO2 07/10/19 20:15 80/49 07/10/19 19:21 107 26 100 Mechanical Ventilator 30 111 26 30 07/10/19 18:42 99.2 07/10/19 18:30 113 27 86/48 (61) 100 07/10/19 18:15 26 86/48 Mechanical Ventilator 30 07/10/19 18:00 113 26 87/64 (72) 100 07/10/19 18:00 25 108/77 Mechanical Ventilator 30 07/10/19 17:30 112 26 86/53 (64) 07/10/19 17:15 26 86/53 Mechanical Ventilator 30 07/10/19 17:00 26 77/44 Mechanical Ventilator 30 07/10/19 17:00 112 26 77/44 (55) 100 07/10/19 16:45 26 75/48 Mechanical Ventilator 30 07/10/19 16:30 26 67/49 Mechanical Ventilator 30 07/10/19 16:30 112 26 83/52 (62) 100 07/10/19 16:00 106 26 89/55 (66) 100 07/10/19 16:00 Mechanical Ventilator 07/10/19 16:00 99.4 106 26 89/55 (66) 100 07/10/19 16:00 115 07/10/19 16:00 26 89/55 Mechanical Ventilator 30 07/10/19 16:00 30 07/10/19 15:30 109 25 79/54 (62) 100 07/10/19 15:16 115 28 100 Mechanical Ventilator 30 120 27 30 07/10/19 15:00 112 26 77/59 (65) 100 07/10/19 15:00 26 77/59 Mechanical Ventilator 26 07/10/19 14:45 26 78/54 Mechanical Ventilator 30 07/10/19 14:30 22 85/57 Mechanical Ventilator 30 07/10/19 14:30 113 26 78/59 (65) 100 07/10/19 14:00 119 22 85/57 (66) 100 07/10/19 14:00 22 130/69 Mechanical Ventilator 30 07/10/19 13:45 28 130/81 Mechanical Ventilator 30 07/10/19 13:40 30 131/91 Mechanical Ventilator 30 07/10/19 13:35 30 131/91 Mechanical Ventilator 30 07/10/19 13:30 123 23 115/77 (90) 100 07/10/19 13:30 30 131/91 Mechanical Ventilator 30 07/10/19 13:25 33 142/93 Mechanical Ventilator 30 07/10/19 13:20 33 142/93 Mechanical Ventilator 30 07/10/19 13:15 33 142/93 Mechanical Ventilator 30 07/10/19 13:10 37 140/96 Mechanical Ventilator 30 07/10/19 13:05 37 140/96 Mechanical Ventilator 30 07/10/19 13:00 37 140/96 Mechanical Ventilator 30 07/10/19 13:00 142 38 140/96 (111) 100 07/10/19 12:30 123 36 136/85 (102) 100 07/10/19 12:00 Mechanical Ventilator 07/10/19 12:00 138 07/10/19 12:00 99.2 128 31 87/63 (71) 100 07/10/19 12:00 30 07/10/19 12:00 128 31 87/63 (71) 100 07/10/19 12:00 32 101/61 Mechanical Ventilator 30 07/10/19 11:30 129 32 101/61 (74) 100 07/10/19 11:11 124 35 100 Mechanical Ventilator 30 122 34 30 07/10/19 11:00 31 120/75 Mechanical Ventilator 30 07/10/19 11:00 125 31 120/75 (90) 100 07/10/19 10:30 122 29 121/71 (88) 100 07/10/19 10:00 26 105/61 Mechanical Ventilator 100 07/10/19 10:00 118 26 105/61 (76) 100 07/10/19 09:30 124 32 137/76 (96) 100 07/10/19 09:10 100 07/10/19 09:00 27 94/60 Mechanical Ventilator 30 07/10/19 09:00 120 26 94/60 (71) 100 07/10/19 08:30 126 32 109/81 (90) 100 07/10/19 08:00 128 07/10/19 08:00 31 112/77 Mechanical Ventilator 30 07/10/19 08:00 98.8 126 31 112/77 (89) 100 07/10/19 08:00 30 07/10/19 08:00 Mechanical Ventilator 07/10/19 08:00 122 07/10/19 07:30 126 34 122/71 (88) 100 07/10/19 07:06 129 35 100 Mechanical Ventilator 30 129 32 30 07/10/19 07:00 129 35 113/72 (86) 100 07/10/19 07:00 35 113/72 Mechanical Ventilator 30 07/10/19 06:45 127 32 07/10/19 06:30 127 32 119/73 (88) 100 07/10/19 06:15 126 31 135/74 (94) 100 07/10/19 06:00 118 28 88/57 (67) 100 07/10/19 06:00 28 88/57 Mechanical Ventilator 30 5/30/20 05:30 121 33 114/67 (83) 100 07/10/19 05:00 113 26 118/76 (90) 100 07/10/19 05:00 26 118/76 Mechanical Ventilator 30 07/10/19 04:30 112 26 85/56 (66) 100 07/10/19 04:15 109 26 96/66 (76) 100 07/10/19 04:00 26 95/56 Mechanical Ventilator 30 07/10/19 04:00 30 07/10/19 04:00 99.0 109 26 95/56 (69) 100 07/10/19 04:00 Mechanical Ventilator 07/10/19 03:44 109 26 100 Mechanical Ventilator 30 109 26 30 07/10/19 03:30 112 26 93/61 (72) 100 07/10/19 03:07 111 07/10/19 03:00 115 27 114/71 (85) 100 07/10/19 03:00 27 114/71 Mechanical Ventilator 30 07/10/19 02:30 117 36 125/80 (95) 100 07/10/19 02:00 27 114/74 Mechanical Ventilator 30 07/10/19 02:00 113 27 114/74 (87) 100 07/10/19 01:30 117 29 143/76 (98) 100 07/10/19 01:00 122 30 129/80 (96) 100 07/10/19 01:00 26 129/80 Mechanical Ventilator 30 07/10/19 00:30 119 34 115/77 (90) 100 07/10/19 00:00 30 07/10/19 00:00 114 07/10/19 00:00 Mechanical Ventilator 07/10/19 00:00 26 108/54 Mechanical Ventilator 30 07/10/19 00:00 99.2 114 26 108/64 (79) 100 07/09/19 23:30 116 26 113/71 (85) 100 07/09/19 23:01 110 26 100 Mechanical Ventilator 30 110 26 30 07/09/19 23:00 20 127/84 Mechanical Ventilator 30 07/09/19 23:00 113/71 07/09/19 23:00 114 20 127/84 (98) 100 07/09/19 22:30 117 27 115/65 (82) 100 07/09/19 22:00 27 118/78 Mechanical Ventilator 30 07/09/19 22:00 118 27 118/74 (89) 100 07/09/19 21:30 115 30 127/74 (91) 100 07/09/19 21:27 26 120/72 Mechanical Ventilator 07/09/19 21:00 113 30 136/78 (97) 100 07/09/19 20:30 100.4 112 30 136/81 (99) 100 Intake and Output 07/09/19 07/10/19 18:59 06:59 Intake Total 430 ml 588 ml Output Total 1010 ml 10 ml Balance -580 ml 578 ml Free Water 100 ml IV Total 60 ml 108 ml Tube Feeding 150 ml 380 ml Other 120 ml 100 ml Output Urine Total 10 ml 10 ml Hemodialysis UF 1000 ml # Bowel Movements 1 Laboratory Tests 07/10/19 04:00: White Blood Count 18.5H, Red Blood Count 3.34L, Hemoglobin 9.5L, Hematocrit 30.8L, Mean Corpuscular Volume 92, Mean Corpuscular Hemoglobin 28.5, Mean Corpuscular Hemoglobin Concent 31.0L, Red Cell Distribution Width 16.7H, Platelet Count 407, Mean Platelet Volume 6.1L, Neutrophils (%) (Auto) , Lymphocytes (%) (Auto) , Monocytes (%) (Auto) , Eosinophils (%) (Auto) , Basophils (%) (Auto) , Differential Total Cells Counted 100, Neutrophils % ( Manual) 84H, Lymphocytes % (Manual) 9L, Monocytes % (Manual) 6, Eosinophils % ( Manual) 1, Basophils % (Manual) 0, Band Neutrophils 0, Platelet Estimate Adequate, Platelet Morphology Normal, Polychromasia 1+, Hypochromasia 1+, Anisocytosis 1+, Sodium Level 141, Potassium Level 4.2, Chloride Level 97L, Carbon Dioxide Level 25, Anion Gap 19H, Blood Urea Nitrogen 73H, Creatinine 10.3H, Estimat Glomerular Filtration Rate 5.1, Glucose Level 223H, Calcium Level 9.9, Random Vancomycin Level 28.7 Height (Feet): 6 Height (Inches): 1.00 Weight (Pounds): 161 Karishma Mulligan MD July 10, 2019 20:20
[2019-07-10] MEDS: fentaNYL 2500mcg/NS 250ml IV SCH (21:19)
--- NOTE | 2019-07-10 22:03 | Pulmonolgy Critical Care Note ---
Critical Care - Asmt/Plan Assessment/Plan: Pulmonary CCM Progress Note HPI: Patient is a 68 year old man, alf resident, admitted c/o shortness of breath, cough, noted to have Covid 19 Pneumonia, Respiratory Failure S/p intubation, CXR improving infiltrates ETT adjusted Septic Shock, pressors off Preserved EF FIO2 40%-50%, P5, adequate O2 sats, remains on ACVC, s/p Tracheostomy, CXR stable, for PEG Anemic ID following See earlier Past Medical History: COPD, CKD, Hypertension, Anemia Allergies: No Known Allergies Improving Pulmonary Status on HD Physical Exam Vital Signs Noted Sedated on ventilator WDWN, no distress HEENT: NCAT,moist mm Chest: Occasional rhonchi Heart: HS1, HS2, RRR Abdomen: SNTND, no masses Extremities: Well perfused, no edema CLINIC RECEPTIONIST: No focal signs, no seizures, sedated Impression: COVID-19 virus infection Pneumonia Respiratory failure on ventilator, wean as tolerated CKD - on HD Hypotension on pressors previously Cardiomegaly Lymphopenia Elevated AST COPD Chronic Kidney Disease - HD H/o Hypertension Worsening anemia Plan: Tolerated Tracheostomy Antibiotics per ID HD Pressors PRN ACVC - wean as tolerated 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 Monitor cultures/viral studies PPX Hemodialysis per Renal Psychiatry following [facility] - [facility] requested for when available, [facility] - not available as yet Laboratory Tests Noted: CXR: Hypoventilatory exam, interstitial changes, cardiomegaly, improving infiltrates Subjective ROS Limited/Unobtainable: No Constitutional: Denies: fever Respiratory: Reports: dry cough, shortness of breath Gastrointestinal/Abdominal: Reports: diarrhea, other - colace was stopped Psychiatric: Reports: other - refuses labs Allergies: Coded Allergies: No Known Allergies (Unverified , 05/28/19) All Systems: reviewed and negative except above Labs noted Critical Care - Objective Last 24 Hour Vital Signs Date Time Temp Pulse Resp B/P (MAP) Pulse Ox O2 Delivery O2 Flow Rate FiO2 07/10/19 21:19 26 91/59 Mechanical Ventilator 30 07/10/19 20:15 80/49 07/10/19 19:21 107 26 100 Mechanical Ventilator 30 111 26 30 07/10/19 18:42 99.2 07/10/19 18:30 113 27 86/48 (61) 100 07/10/19 18:15 26 86/48 Mechanical Ventilator 30 07/10/19 18:00 113 26 87/64 (72) 100 07/10/19 18:00 25 108/77 Mechanical Ventilator 30 07/10/19 17:30 112 26 86/53 (64) 07/10/19 17:15 26 86/53 Mechanical Ventilator 30 07/10/19 17:00 26 77/44 Mechanical Ventilator 30 07/10/19 17:00 112 26 77/44 (55) 100 07/10/19 16:45 26 75/48 Mechanical Ventilator 30 07/10/19 16:30 26 67/49 Mechanical Ventilator 30 07/10/19 16:30 112 26 83/52 (62) 100 07/10/19 16:00 106 26 89/55 (66) 100 07/10/19 16:00 Mechanical Ventilator 07/10/19 16:00 99.4 106 26 89/55 (66) 100 07/10/19 16:00 115 07/10/19 16:00 26 89/55 Mechanical Ventilator 30 07/10/19 16:00 30 07/10/19 15:30 109 25 79/54 (62) 100 07/10/19 15:16 115 28 100 Mechanical Ventilator 30 120 27 30 07/10/19 15:00 112 26 77/59 (65) 100 07/10/19 15:00 26 77/59 Mechanical Ventilator 26 07/10/19 14:45 26 78/54 Mechanical Ventilator 30 07/10/19 14:30 22 85/57 Mechanical Ventilator 30 07/10/19 14:30 113 26 78/59 (65) 100 07/10/19 14:00 119 22 85/57 (66) 100 07/10/19 14:00 22 130/69 Mechanical Ventilator 30 07/10/19 13:45 28 130/81 Mechanical Ventilator 30 07/10/19 13:40 30 131/91 Mechanical Ventilator 30 07/10/19 13:35 30 131/91 Mechanical Ventilator 30 07/10/19 13:30 123 23 115/77 (90) 100 07/10/19 13:30 30 131/91 Mechanical Ventilator 30 07/10/19 13:25 33 142/93 Mechanical Ventilator 30 07/10/19 13:20 33 142/93 Mechanical Ventilator 30 07/10/19 13:15 33 142/93 Mechanical Ventilator 30 07/10/19 13:10 37 140/96 Mechanical Ventilator 30 07/10/19 13:05 37 140/96 Mechanical Ventilator 30 07/10/19 13:00 37 140/96 Mechanical Ventilator 30 07/10/19 13:00 142 38 140/96 (111) 100 07/10/19 12:30 123 36 136/85 (102) 100 07/10/19 12:00 Mechanical Ventilator 07/10/19 12:00 138 07/10/19 12:00 99.2 128 31 87/63 (71) 100 07/10/19 12:00 30 07/10/19 12:00 128 31 87/63 (71) 100 07/10/19 12:00 32 101/61 Mechanical Ventilator 30 07/10/19 11:30 129 32 101/61 (74) 100 07/10/19 11:11 124 35 100 Mechanical Ventilator 30 122 34 30 07/10/19 11:00 31 120/75 Mechanical Ventilator 30 07/10/19 11:00 125 31 120/75 (90) 100 07/10/19 10:30 122 29 121/71 (88) 100 07/10/19 10:00 26 105/61 Mechanical Ventilator 100 07/10/19 10:00 118 26 105/61 (76) 100 07/10/19 09:30 124 32 137/76 (96) 100 07/10/19 09:10 100 07/10/19 09:00 27 94/60 Mechanical Ventilator 30 07/10/19 09:00 120 26 94/60 (71) 100 07/10/19 08:30 126 32 109/81 (90) 100 07/10/19 08:00 128 07/10/19 08:00 31 112/77 Mechanical Ventilator 30 07/10/19 08:00 98.8 126 31 112/77 (89) 100 07/10/19 08:00 30 07/10/19 08:00 Mechanical Ventilator 07/10/19 08:00 122 07/10/19 07:30 126 34 122/71 (88) 100 07/10/19 07:06 129 35 100 Mechanical Ventilator 30 129 32 30 07/10/19 07:00 129 35 113/72 (86) 100 07/10/19 07:00 35 113/72 Mechanical Ventilator 30 07/10/19 06:45 127 32 5/30/20 06:30 127 32 119/73 (88) 100 07/10/19 06:15 126 31 135/74 (94) 100 07/10/19 06:00 118 28 88/57 (67) 100 07/10/19 06:00 28 88/57 Mechanical Ventilator 30 07/10/19 05:30 121 33 114/67 (83) 100 07/10/19 05:00 113 26 118/76 (90) 100 07/10/19 05:00 26 118/76 Mechanical Ventilator 30 07/10/19 04:30 112 26 85/56 (66) 100 07/10/19 04:15 109 26 96/66 (76) 100 07/10/19 04:00 26 95/56 Mechanical Ventilator 30 07/10/19 04:00 30 07/10/19 04:00 99.0 109 26 95/56 (69) 100 07/10/19 04:00 Mechanical Ventilator 07/10/19 03:44 109 26 100 Mechanical Ventilator 30 109 26 30 07/10/19 03:30 112 26 93/61 (72) 100 07/10/19 03:07 111 07/10/19 03:00 115 27 114/71 (85) 100 07/10/19 03:00 27 114/71 Mechanical Ventilator 30 07/10/19 02:30 117 36 125/80 (95) 100 07/10/19 02:00 27 114/74 Mechanical Ventilator 30 07/10/19 02:00 113 27 114/74 (87) 100 07/10/19 01:30 117 29 143/76 (98) 100 07/10/19 01:00 122 30 129/80 (96) 100 07/10/19 01:00 26 129/80 Mechanical Ventilator 30 07/10/19 00:30 119 34 115/77 (90) 100 07/10/19 00:00 30 07/10/19 00:00 114 07/10/19 00:00 Mechanical Ventilator 07/10/19 00:00 26 108/54 Mechanical Ventilator 30 07/10/19 00:00 99.2 114 26 108/64 (79) 100 07/09/19 23:30 116 26 113/71 (85) 100 07/09/19 23:01 110 26 100 Mechanical Ventilator 30 110 26 30 07/09/19 23:00 20 127/84 Mechanical Ventilator 30 07/09/19 23:00 113/71 07/09/19 23:00 114 20 127/84 (98) 100 07/09/19 22:30 117 27 115/65 (82) 100 Accucheck: 253 Critical Care - Subjective ROS Limited/Unobtainable: Yes Condition: improving FI02: 30 Vent Support Breath Rate: 26 Vent Support Mode: AC Vent Tidal Volume: 500 Sputum Amount: Small PEEP: 5.0 PIP: 22 Tube Feeding Amount: 35 I&O: Intake and Output 07/09/19 07/10/19 19:00 07:00 Intake Total 425 ml 628 ml Output Total 1010 ml 10 ml Balance -585 ml 618 ml Free Water 100 ml IV Total 55 ml 113 ml Tube Feeding 150 ml 415 ml Other 120 ml 100 ml Output Urine Total 10 ml 10 ml Hemodialysis UF 1000 ml # Bowel Movements 1 ET-Tube: 7.5 ET Position: 24 Arturo Mckeon MD July 10, 2019 22:03
[2019-07-11] VITALS (66 sets, daily range): BP systolic 79–145; BP diastolic 46–86
[2019-07-11] MEDS: Acetaminophen 650mg/20.3ml NG PRN (00:04)
[2019-07-11] MEDS: Albuterol 90mcg Inhaler 8gm INH SCH ×6 (03:07→23:38)
[2019-07-11] MEDS: Renvela 800mg Pkt NG SCH ×3 (05:25→22:16)
[2019-07-11] MEDS: NovoLOG Insulin Flexpen SUBQ SCH ×3 (05:49→17:47)
[2019-07-11 07:20] LABS: HEMATOCRIT 34.3 % (42.0-52.0); HEMOGLOBIN 10.7 G/DL (14.2-18.0); MEAN CORPUSCULAR VOLUME 92 FL (80-99); PLATELET COUNT 447 K/UL (150-450); RED BLOOD COUNT 3.72 M/UL (4.70-6.10); RED CELL DISTRIBUTION WIDTH 16.4 % (11.6-14.8); WHITE BLOOD COUNT 18.5 K/UL (4.8-10.8)
--- NOTE | 2019-07-11 07:29 | Cardiac Electrophysiology PN ---
Assessment/Plan Assessment/Plan 1. Elevated troponin. Low level and flat due to renal failure. On Aspirin. EF 60 %. 2. S/P Septic shock. Off Levo 3. ESRD, on HD per Dr. Cole. 4. COVID-19 positive pneumonia. On the Vent with 30% Fio2. Fu by Dr. Mckeon. S/P Tracheostomy 07/08/19 5. MRSA carrier. 6. COPD. 7. Anemia. 8. Dysphagia, PEG pending [facility] RN Subjective Subjective Covid positive x 3 in isolation in ICU, on 30% Fio2, PEEP 5. Off pressors on midodrine. S/P Tracheostomy . Planned for PEG but no consent yet Objective Last 24 Hour Vital Signs Date Time Temp Pulse Resp B/P (MAP) Pulse Ox O2 Delivery O2 Flow Rate FiO2 07/11/19 07:04 109 26 100 Mechanical Ventilator 30 111 26 30 07/11/19 06:30 111 26 07/11/19 06:30 111 26 98/68 (78) 100 07/11/19 06:15 114 14 118/76 (90) 100 07/11/19 06:00 111 26 119/82 (94) 100 07/11/19 05:45 108 19 119/81 (94) 100 07/11/19 05:30 109 17 113/74 (87) 100 07/11/19 05:15 115 18 121/81 (94) 100 07/11/19 05:00 115 22 121/86 (98) 100 07/11/19 04:45 114 13 127/77 (94) 100 07/11/19 04:30 109 25 131/75 (93) 100 07/11/19 04:15 95 25 107/67 (80) 100 07/11/19 04:00 98.9 94 26 87/57 (67) 100 07/11/19 04:00 30 07/11/19 04:00 Mechanical Ventilator 07/11/19 03:47 96 27 86/58 (67) 100 07/11/19 03:30 99 26 92/56 (68) 100 07/11/19 03:08 105 26 117/67 (84) 100 07/11/19 03:07 106 26 100 Mechanical Ventilator 30 101 26 30 07/11/19 03:02 104 07/11/19 03:00 103 26 87/56 (66) 100 07/11/19 03:00 26 87/56 Mechanical Ventilator 30 07/11/19 03:00 87/56 07/11/19 02:45 108 26 88/57 (67) 100 07/11/19 02:30 113 15 123/77 (92) 100 07/11/19 02:15 119 21 117/66 (83) 100 07/11/19 02:00 27 132/74 Mechanical Ventilator 30 07/11/19 02:00 132/74 07/11/19 02:00 127 27 132/74 (93) 100 07/11/19 01:45 127 31 132/76 (94) 100 07/11/19 01:30 125 27 129/80 (96) 100 07/11/19 01:15 127 32 132/78 (96) 100 07/11/19 01:00 129 31 135/76 (95) 100 07/11/19 01:00 31 135/76 Mechanical Ventilator 30 07/11/19 01:00 135/76 07/11/19 00:45 127 31 127/86 (100) 100 07/11/19 00:34 101.0 07/11/19 00:30 126 36 135/77 (96) 100 07/11/19 00:15 121 29 121/78 (92) 100 07/11/19 00:00 Mechanical Ventilator 07/11/19 00:00 22 99/60 Mechanical Ventilator 30 07/11/19 00:00 99/60 07/11/19 00:00 101.0 126 22 99/60 (73) 100 07/11/19 00:00 30 07/11/19 00:00 126 07/10/19 23:45 128 32 130/81 (97) 100 07/10/19 23:35 26 128/82 Mechanical Ventilator 30 07/10/19 23:30 119 27 114/67 (83) 100 07/10/19 23:15 130 33 134/70 (91) 100 07/10/19 23:14 121 29 100 Mechanical Ventilator 30 121 31 30 07/10/19 23:00 124 34 128/103 (111) 100 07/10/19 23:00 34 128/103 Mechanical Ventilator 30 07/10/19 23:00 128/103 07/10/19 22:45 121 28 142/77 (98) 100 07/10/19 22:30 110 30 135/77 (96) 100 07/10/19 22:15 95 30 120/72 (88) 100 07/10/19 22:00 31 137/74 Mechanical Ventilator 30 07/10/19 22:00 137/74 07/10/19 22:00 94 31 137/74 (95) 100 07/10/19 21:45 87 21 92/56 (68) 100 07/10/19 21:30 92 27 93/56 (68) 100 07/10/19 21:19 26 91/59 Mechanical Ventilator 30 07/10/19 21:00 26 83/50 Mechanical Ventilator 30 07/10/19 21:00 83/50 07/10/19 21:00 86 26 83/50 (61) 100 07/10/19 20:45 93 26 93/59 (70) 100 07/10/19 20:30 92 26 83/51 (62) 100 07/10/19 20:28 96 26 81/53 (62) 100 07/10/19 20:21 101 26 73/46 (55) 100 07/10/19 20:20 83/51 07/10/19 20:18 104 26 76/49 (58) 100 07/10/19 20:15 103 26 73/43 (53) 100 07/10/19 20:15 80/49 07/10/19 20:12 103 26 72/48 (56) 100 07/10/19 20:00 Mechanical Ventilator 07/10/19 20:00 27 80/49 Mechanical Ventilator 30 07/10/19 20:00 98.9 106 27 80/49 (59) 100 07/10/19 20:00 30 07/10/19 19:49 102 24 98/58 (71) 100 07/10/19 19:47 102 27 68/49 (55) 100 07/10/19 19:45 102 26 71/50 (57) 100 07/10/19 19:38 104 26 75/49 (58) 100 07/10/19 19:30 26 69/53 Mechanical Ventilator 30 07/10/19 19:30 107 26 69/53 (58) 100 07/10/19 19:21 107 26 100 Mechanical Ventilator 30 111 26 30 07/10/19 19:15 107 07/10/19 19:15 114 26 95/58 (70) 100 07/10/19 19:06 107 27 72/52 (59) 100 07/10/19 19:00 24 71/48 Mechanical Ventilator 30 07/10/19 19:00 108 24 71/48 (56) 100 07/10/19 18:30 113 27 86/48 (61) 100 07/10/19 18:15 26 86/48 Mechanical Ventilator 30 07/10/19 18:00 113 26 87/64 (72) 100 07/10/19 18:00 25 108/77 Mechanical Ventilator 30 07/10/19 17:30 112 26 86/53 (64) 07/10/19 17:15 26 86/53 Mechanical Ventilator 30 07/10/19 17:00 26 77/44 Mechanical Ventilator 30 07/10/19 17:00 112 26 77/44 (55) 100 07/10/19 16:45 26 75/48 Mechanical Ventilator 30 07/10/19 16:30 26 67/49 Mechanical Ventilator 30 07/10/19 16:30 112 26 83/52 (62) 100 07/10/19 16:00 106 26 89/55 (66) 100 07/10/19 16:00 Mechanical Ventilator 07/10/19 16:00 99.4 106 26 89/55 (66) 100 07/10/19 16:00 115 07/10/19 16:00 26 89/55 Mechanical Ventilator 30 07/10/19 16:00 30 07/10/19 15:30 109 25 79/54 (62) 100 07/10/19 15:16 115 28 100 Mechanical Ventilator 30 120 27 30 07/10/19 15:00 112 26 77/59 (65) 100 07/10/19 15:00 26 77/59 Mechanical Ventilator 26 07/10/19 14:45 26 78/54 Mechanical Ventilator 30 07/10/19 14:30 22 85/57 Mechanical Ventilator 30 07/10/19 14:30 113 26 78/59 (65) 100 07/10/19 14:00 119 22 85/57 (66) 100 07/10/19 14:00 22 130/69 Mechanical Ventilator 30 07/10/19 13:45 28 130/81 Mechanical Ventilator 30 07/10/19 13:40 30 131/91 Mechanical Ventilator 30 07/10/19 13:35 30 131/91 Mechanical Ventilator 30 07/10/19 13:30 123 23 115/77 (90) 100 07/10/19 13:30 30 131/91 Mechanical Ventilator 30 07/10/19 13:25 33 142/93 Mechanical Ventilator 30 07/10/19 13:20 33 142/93 Mechanical Ventilator 30 07/10/19 13:15 33 142/93 Mechanical Ventilator 30 07/10/19 13:10 37 140/96 Mechanical Ventilator 30 07/10/19 13:05 37 140/96 Mechanical Ventilator 30 07/10/19 13:00 37 140/96 Mechanical Ventilator 30 07/10/19 13:00 142 38 140/96 (111) 100 07/10/19 12:30 123 36 136/85 (102) 100 07/10/19 12:00 Mechanical Ventilator 07/10/19 12:00 138 07/10/19 12:00 99.2 128 31 87/63 (71) 100 07/10/19 12:00 30 07/10/19 12:00 128 31 87/63 (71) 100 07/10/19 12:00 32 101/61 Mechanical Ventilator 30 07/10/19 11:30 129 32 101/61 (74) 100 07/10/19 11:11 124 35 100 Mechanical Ventilator 30 122 34 30 07/10/19 11:00 31 120/75 Mechanical Ventilator 30 07/10/19 11:00 125 31 120/75 (90) 100 07/10/19 10:30 122 29 121/71 (88) 100 07/10/19 10:00 26 105/61 Mechanical Ventilator 100 07/10/19 10:00 118 26 105/61 (76) 100 07/10/19 09:30 124 32 137/76 (96) 100 07/10/19 09:10 100 07/10/19 09:00 27 94/60 Mechanical Ventilator 30 07/10/19 09:00 120 26 94/60 (71) 100 07/10/19 08:30 126 32 109/81 (90) 100 07/10/19 08:00 128 07/10/19 08:00 31 112/77 Mechanical Ventilator 30 07/10/19 08:00 98.8 126 31 112/77 (89) 100 07/10/19 08:00 30 07/10/19 08:00 Mechanical Ventilator 07/10/19 08:00 122 07/10/19 07:30 126 34 122/71 (88) 100 Intake and Output 07/10/19 07/11/19 19:00 07:00 Intake Total 650.22 ml 566.29 ml Output Total 0 ml 0 ml Balance 650.22 ml 566.29 ml Free Water 90 ml IV Total 140.22 ml 116.29 ml Tube Feeding 420 ml 280 ml Other 170 ml Output Urine Total 0 ml 0 ml # Bowel Movements 2 4 Laboratory Tests Test 07/11/19 05:30 White Blood Count 18.5 K/UL (4.8-10.8) H Red Blood Count 3.72 M/UL (4.70-6.10) L Hemoglobin 10.7 G/DL (14.2-18.0) L Hematocrit 34.3 % (42.0-52.0) L Mean Corpuscular Volume 92 FL (80-99) Mean Corpuscular Hemoglobin 28.9 PG (27.0-31.0) Mean Corpuscular Hemoglobin Concent 31.3 G/DL (32.0-36.0) L Red Cell Distribution Width 16.4 % (11.6-14.8) H Platelet Count 447 K/UL (150-450) Mean Platelet Volume 6.0 FL (6.5-10.1) L Neutrophils (%) (Auto) % (45.0-75.0) Lymphocytes (%) (Auto) % (20.0-45.0) Monocytes (%) (Auto) % (1.0-10.0) Eosinophils (%) (Auto) % (0.0-3.0) Basophils (%) (Auto) % (0.0-2.0) Neutrophils % (Manual) Pending Lymphocytes % (Manual) Pending Platelet Estimate Pending Platelet Morphology Pending Sodium Level Pending Potassium Level Pending Chloride Level Pending Carbon Dioxide Level Pending Blood Urea Nitrogen Pending Creatinine Pending Estimat Glomerular Filtration Rate Pending Glucose Level Pending Calcium Level Pending Phosphorus Level Pending Magnesium Level Pending Total Bilirubin Pending Aspartate Amino Transf (AST/SGOT) Pending Alanine Aminotransferase (ALT/SGPT) Pending Alkaline Phosphatase Pending C-Reactive Protein, Quantitative Pending Total Protein Pending Albumin Pending Globulin Pending Objective HEAD AND NECK: No JVD. Trancheostomy in place LUNGS: Decreased breath sounds. CARDIOVASCULAR: Regular S1 and S2. Tachycardic. ABDOMEN: Soft. EXTREMITIES: No pitting edema. New Left FV Gio Engle MD July 11, 2019 07:29
[2019-07-11 07:55] LABS: ALBUMIN 3.3 G/DL (3.4-5.0); ALBUMIN/GLOBULIN RATIO 0.5 (1.0-2.7); ALKALINE PHOSPHATASE 131 U/L (46-116); ANION GAP 20 mmol/L (5-15); ASPARTATE AMINO TRANSFERASE 16 U/L (15-37); BILIRUBIN,TOTAL 0.4 MG/DL (0.2-1.0); BLOOD UREA NITROGEN 97 mg/dL (7-18); CALCIUM 10.5 MG/DL (8.5-10.1); CARBON DIOXIDE 24 MMOL/L (21-32); CHLORIDE 99 MMOL/L (98-107); CREATININE 12.2 MG/DL (0.55-1.30); PHOSPHORUS 6.7 MG/DL (2.5-4.9); SODIUM 143 MMOL/L (136-145)
--- NOTE | 2019-07-11 08:01 | General Progress Note ---
Assessment/Plan Status: unchanged Assessment/Plan: 1. Diabetes. 2. Hypertension. 3. Coronary artery disease. 4. COPD. 5. Psychiatric disorder with schizophrenia. 6. History of hepatitis C. 7. HLP. 8. Chronic kidney disease, now with acute renal failure. 9. Anemia. 10. Hypothyroidism. 11. Spinal stenosis. 12. Constipation. 13. GERD. 14. COVID positive HD per nephrology fu labs icu care NGTF still pending consent for PEG will try again tomorrow Subjective ROS Limited/Unobtainable: No Allergies: Coded Allergies: No Known Allergies (Unverified , 05/28/19) Objective Last 24 Hour Vital Signs Date Time Temp Pulse Resp B/P (MAP) Pulse Ox O2 Delivery O2 Flow Rate FiO2 07/11/19 07:04 109 26 100 Mechanical Ventilator 30 111 26 30 07/11/19 07:00 111 26 126/79 (95) 100 07/11/19 07:00 26 116/79 Mechanical Ventilator 30 07/11/19 07:00 116/79 07/11/19 06:30 111 26 07/11/19 06:30 111 26 98/68 (78) 100 07/11/19 06:15 114 14 118/76 (90) 100 07/11/19 06:00 26 119/82 Mechanical Ventilator 30 07/11/19 06:00 119/82 07/11/19 06:00 111 26 119/82 (94) 100 07/11/19 05:45 108 19 119/81 (94) 100 07/11/19 05:30 109 17 113/74 (87) 100 07/11/19 05:15 115 18 121/81 (94) 100 07/11/19 05:00 115 22 121/86 (98) 100 07/11/19 05:00 22 121/86 Mechanical Ventilator 30 07/11/19 05:00 121/86 07/11/19 04:45 114 13 127/77 (94) 100 07/11/19 04:30 109 25 131/75 (93) 100 07/11/19 04:15 95 25 107/67 (80) 100 07/11/19 04:00 98.9 94 26 87/57 (67) 100 07/11/19 04:00 26 87/57 Mechanical Ventilator 30 07/11/19 04:00 87/57 07/11/19 04:00 30 5/31/20 04:00 Mechanical Ventilator 07/11/19 03:47 96 27 86/58 (67) 100 07/11/19 03:30 99 26 92/56 (68) 100 07/11/19 03:08 105 26 117/67 (84) 100 07/11/19 03:07 106 26 100 Mechanical Ventilator 30 101 26 30 07/11/19 03:02 104 07/11/19 03:00 103 26 87/56 (66) 100 07/11/19 03:00 26 87/56 Mechanical Ventilator 30 07/11/19 03:00 87/56 07/11/19 02:45 108 26 88/57 (67) 100 07/11/19 02:30 113 15 123/77 (92) 100 07/11/19 02:15 119 21 117/66 (83) 100 07/11/19 02:00 27 132/74 Mechanical Ventilator 30 07/11/19 02:00 132/74 07/11/19 02:00 127 27 132/74 (93) 100 07/11/19 01:45 127 31 132/76 (94) 100 07/11/19 01:30 125 27 129/80 (96) 100 07/11/19 01:15 127 32 132/78 (96) 100 07/11/19 01:00 129 31 135/76 (95) 100 07/11/19 01:00 31 135/76 Mechanical Ventilator 30 07/11/19 01:00 135/76 07/11/19 00:45 127 31 127/86 (100) 100 07/11/19 00:34 101.0 07/11/19 00:30 126 36 135/77 (96) 100 07/11/19 00:15 121 29 121/78 (92) 100 07/11/19 00:00 Mechanical Ventilator 07/11/19 00:00 22 99/60 Mechanical Ventilator 30 07/11/19 00:00 99/60 07/11/19 00:00 101.0 126 22 99/60 (73) 100 07/11/19 00:00 30 07/11/19 00:00 126 07/10/19 23:45 128 32 130/81 (97) 100 07/10/19 23:35 26 128/82 Mechanical Ventilator 30 07/10/19 23:30 119 27 114/67 (83) 100 07/10/19 23:15 130 33 134/70 (91) 100 07/10/19 23:14 121 29 100 Mechanical Ventilator 30 121 31 30 07/10/19 23:00 124 34 128/103 (111) 100 20 23:00 34 128/103 Mechanical Ventilator 30 07/10/19 23:00 128/103 07/10/19 22:45 121 28 142/77 (98) 100 07/10/19 22:30 110 30 135/77 (96) 100 07/10/19 22:15 95 30 120/72 (88) 100 07/10/19 22:00 31 137/74 Mechanical Ventilator 30 07/10/19 22:00 137/74 07/10/19 22:00 94 31 137/74 (95) 100 07/10/19 21:45 87 21 92/56 (68) 100 07/10/19 21:30 92 27 93/56 (68) 100 07/10/19 21:19 26 91/59 Mechanical Ventilator 30 07/10/19 21:00 26 83/50 Mechanical Ventilator 30 07/10/19 21:00 83/50 07/10/19 21:00 86 26 83/50 (61) 100 07/10/19 20:45 93 26 93/59 (70) 100 07/10/19 20:30 92 26 83/51 (62) 100 07/10/19 20:28 96 26 81/53 (62) 100 07/10/19 20:21 101 26 73/46 (55) 100 07/10/19 20:20 83/51 07/10/19 20:18 104 26 76/49 (58) 100 20 20:15 103 26 73/43 (53) 100 20 20:15 80/49 20 20:12 103 26 72/48 (56) 100 07/10/19 20:00 Mechanical Ventilator 07/10/19 20:00 27 80/49 Mechanical Ventilator 30 07/10/19 20:00 98.9 106 27 80/49 (59) 100 20 20:00 30 07/10/19 19:49 102 24 98/58 (71) 100 07/10/19 19:47 102 27 68/49 (55) 100 07/10/19 19:45 102 26 71/50 (57) 100 07/10/19 19:38 104 26 75/49 (58) 100 07/10/19 19:30 26 69/53 Mechanical Ventilator 30 07/10/19 19:30 107 26 69/53 (58) 100 07/10/19 19:21 107 26 100 Mechanical Ventilator 30 111 26 30 07/10/19 19:15 107 07/10/19 19:15 114 26 95/58 (70) 100 07/10/19 19:06 107 27 72/52 (59) 100 07/10/19 19:00 24 71/48 Mechanical Ventilator 30 07/10/19 19:00 108 24 71/48 (56) 100 07/10/19 18:30 113 27 86/48 (61) 100 07/10/19 18:15 26 86/48 Mechanical Ventilator 30 07/10/19 18:00 113 26 87/64 (72) 100 07/10/19 18:00 25 108/77 Mechanical Ventilator 30 07/10/19 17:30 112 26 86/53 (64) 07/10/19 17:15 26 86/53 Mechanical Ventilator 30 07/10/19 17:00 26 77/44 Mechanical Ventilator 30 07/10/19 17:00 112 26 77/44 (55) 100 07/10/19 16:45 26 75/48 Mechanical Ventilator 30 07/10/19 16:30 26 67/49 Mechanical Ventilator 30 07/10/19 16:30 112 26 83/52 (62) 100 07/10/19 16:00 106 26 89/55 (66) 100 07/10/19 16:00 Mechanical Ventilator 07/10/19 16:00 99.4 106 26 89/55 (66) 100 07/10/19 16:00 115 07/10/19 16:00 26 89/55 Mechanical Ventilator 30 07/10/19 16:00 30 07/10/19 15:30 109 25 79/54 (62) 100 07/10/19 15:16 115 28 100 Mechanical Ventilator 30 120 27 30 07/10/19 15:00 112 26 77/59 (65) 100 07/10/19 15:00 26 77/59 Mechanical Ventilator 26 07/10/19 14:45 26 78/54 Mechanical Ventilator 30 07/10/19 14:30 22 85/57 Mechanical Ventilator 30 07/10/19 14:30 113 26 78/59 (65) 100 07/10/19 14:00 119 22 85/57 (66) 100 07/10/19 14:00 22 130/69 Mechanical Ventilator 30 07/10/19 13:45 28 130/81 Mechanical Ventilator 30 07/10/19 13:40 30 131/91 Mechanical Ventilator 30 07/10/19 13:35 30 131/91 Mechanical Ventilator 30 07/10/19 13:30 123 23 115/77 (90) 100 07/10/19 13:30 30 131/91 Mechanical Ventilator 30 07/10/19 13:25 33 142/93 Mechanical Ventilator 30 07/10/19 13:20 33 142/93 Mechanical Ventilator 30 07/10/19 13:15 33 142/93 Mechanical Ventilator 30 07/10/19 13:10 37 140/96 Mechanical Ventilator 30 07/10/19 13:05 37 140/96 Mechanical Ventilator 30 07/10/19 13:00 37 140/96 Mechanical Ventilator 30 07/10/19 13:00 142 38 140/96 (111) 100 07/10/19 12:30 123 36 136/85 (102) 100 07/10/19 12:00 Mechanical Ventilator 07/10/19 12:00 138 07/10/19 12:00 99.2 128 31 87/63 (71) 100 07/10/19 12:00 30 07/10/19 12:00 128 31 87/63 (71) 100 07/10/19 12:00 32 101/61 Mechanical Ventilator 30 07/10/19 11:30 129 32 101/61 (74) 100 07/10/19 11:11 124 35 100 Mechanical Ventilator 30 122 34 30 07/10/19 11:00 31 120/75 Mechanical Ventilator 30 07/10/19 11:00 125 31 120/75 (90) 100 07/10/19 10:30 122 29 121/71 (88) 100 07/10/19 10:00 26 105/61 Mechanical Ventilator 100 07/10/19 10:00 118 26 105/61 (76) 100 07/10/19 09:30 124 32 137/76 (96) 100 07/10/19 09:10 100 07/10/19 09:00 27 94/60 Mechanical Ventilator 30 07/10/19 09:00 120 26 94/60 (71) 100 07/10/19 08:30 126 32 109/81 (90) 100 Intake and Output 07/10/19 07/11/19 19:00 07:00 Intake Total 650.22 ml 591.76 ml Output Total 0 ml 0 ml Balance 650.22 ml 591.76 ml Free Water 90 ml IV Total 140.22 ml 141.76 ml Tube Feeding 420 ml 280 ml Other 170 ml Output Urine Total 0 ml 0 ml # Bowel Movements 2 4 Laboratory Tests 07/11/19 05:30: White Blood Count 18.5H, Red Blood Count 3.72L, Hemoglobin 10.7L, Hematocrit 34.3L, Mean Corpuscular Volume 92, Mean Corpuscular Hemoglobin 28.9, Mean Corpuscular Hemoglobin Concent 31.3L, Red Cell Distribution Width 16.4H, Platelet Count 447, Mean Platelet Volume 6.0L, Neutrophils (%) (Auto) , Lymphocytes (%) (Auto) , Monocytes (%) (Auto) , Eosinophils (%) (Auto) , Basophils (%) (Auto) , Neutrophils % (Manual) [Pending], Lymphocytes % (Manual) [Pending], Platelet Estimate [Pending], Platelet Morphology [Pending], Sodium Level [Pending], Potassium Level [Pending], Chloride Level [Pending], Carbon Dioxide Level [Pending], Blood Urea Nitrogen [Pending], Creatinine [Pending], Estimat Glomerular Filtration Rate [Pending], Glucose Level [Pending], Calcium Level [Pending], Phosphorus Level [Pending], Magnesium Level [Pending], Total Bilirubin [Pending], Aspartate Amino Transf (AST/SGOT) [Pending], Alanine Aminotransferase (ALT/SGPT) [Pending], Alkaline Phosphatase [Pending], C- Reactive Protein, Quantitative [Pending], Total Protein [Pending], Albumin [ Pending], Globulin [Pending] Height (Feet): 6 Height (Inches): 1.00 Weight (Pounds): 144 General Appearance: no apparent distress EENT: PERRL/EOMI Neck: supple Cardiovascular: normal rate Respiratory/Chest: decreased breath sounds Abdomen: normal bowel sounds, non tender, soft Extremities: non-tender Marito Ramires MD July 11, 2019 08:01
[2019-07-11 08:04] LABS: ALANINE AMINOTRANSFERASE 20 U/L (12-78)
--- NOTE | 2019-07-11 08:15 | Hematology/Onc Progress Note ---
Assessment/Plan Assessment/Plan Assessment and Recs: # Anemia of chronic disease, likely related ot underlying kidney disease has COIVD19++++++ --> hgb trend 9-->8-->7.3-->7.9-->6.8->9.5-->10->8.3-->7.7-->7.1-->8.9->8.8->7.7 -->8.1 ->7.9-->7.7 -->8.2-->8.1 -->7.9-->8.5 -->9->9.2-->9.5-->10.7 --> transfuse as needed, hgb goal >7 --> no evidence of hemolysis --> peripheral smear has been reviewed --> epogen started 3 x a week ==>> transfuse 06/08, 06/15, # Leukocytosis likely related to suspected COVID-19 virus infection --> completed plaquenil --> trend smear as needed --> wbc trend: 4-->11-->14.5-->21-->26-->21->24--.28-->23-->19-->16.2-->21--> 11.2 -->12.5-->12.3-->12.4-->18.5-->18.5 --> pulm is aware --> on abx cefepime/vanc->zosyn/vanc-->dom/vanc --> pressors as needed --> 06/27 covid 19++ # Thrombocytopenia/Lymphopenia --> likely related to covid19 --> plt 129k-->186k-->251-->285-->384 -->430-->539-->515-->447 --> abx: dom/vanc # Respiratory failure with covid19+ --> s/p vent/trach --> weaning # Possible Pneumonia --> abx completed # Cardiomegaly # Transaminitis with Elevated AST # COPD # Chronic Kidney Disease --> per renal hd --> s/p right femoral cath 07/02 # Hypertension # Dvt ppx lovenox # peg for 07/12/2019 Appreciate consultation and ernesto Rn Subjective Allergies: Coded Allergies: No Known Allergies (Unverified , 05/28/19) Subjective 06/01 nv, extremely agitated, not allowing labs draws, no night sweats, cbc ordered 06/02 confused, restraints, on abx and plaquenil, hgb 7.9, nrb 15 L 06/03 is with nonrebreather, but not compliant, remains confused 06/05 no bleeding, labs noted, no major bleeding, otherwise comfortable 06/06 labs reviewed, no bleeding, meds noted, no night sweats, on levo and nonrebreather 06/07 labs noted, no bleeding, meds reviewed, no bleeding, wbc higher 06/08 to get 2 units prbc, no night sweats, meds reviewed 06/09 is on cefepime and vanc, labs noted, ernesto Rn, no bleeding 06/10 no major changes, labs reviewed, wbc 28k, on abx, cefepime 06/12 remains in icu, labs noted, no night sweats or bleeding 06/13 sluggish pupils, remains agitated, per psych, no bleding, on vent, wbc sitll high 06/14 still confused, remains on vent, with ng, running nepro, on pressors 06/15 icu, febrile, non verbal, hgb 7.1, blood pending, completed plaq 06/16 remains in the icu, nonverbal, plan for hd tomorrow, ernesto rn 06/17 in icu, on pressor, nonverbal, on abx, no bleeding 06/19 no bleeding, nonverbal in icu, hgb is 7.7 06/20 on zosyn, tube feeds, vent, labs noted, in icu, nv 06/21 gettng hd as per renal, in icu, nv, no bleeding, tfs 06/22 icu, cxr with slight improvement, cooling blanket, weaning today 06/23 wewaning, in icu, on vent, abx, and pressors as needed, labs noted 06/24 failed weaning, off abx, completed plaquenil, hgb 8.1 06/26 icu, weaning for this am, afebrile, hgb 8 06/27 in icu, remains comotose, weaning started on peep, no night sweats 06/28 weaning today, off abx, restraints, no distress, h/h stable 06/29 covid 19+, failed weaning, no blood transfusion needed 06/30 icu, on vent, labs reviewed, no distress 07/01 in icu, may need trach, remains on hd per renal, labs noted 07/02 s/p right fem cath, failed wean, no new orders, h/h stable 07/03 is somewhat more responsive, on abx, no bleeding, weaning and HD today 07/04 hd as per renal, weaning off vent, no bleeding today 07/05 obtunded, no bleding overnight, with hd for tomorrow noted, vanc 07/08 no events, remains with trach/vent, ernesto Rn, no bleeding, cbc is noted 07/09 no overnight events, peg for friday pending consent 07/10 off pressors, vent, restraints, labs reviewed Objective Objective Current Medications Medications (Trade) Dose Ordered Sig/Anthony Route PRN Reason Start Time Stop Time Status Last Admin Dose Admin Acetaminophen (Tylenol) 650 mg Q4H PRN NG Temp >100.5 06/13/19 11:00 07/13/19 10:59 07/11/19 00:04 Acetaminophen (Tylenol) 650 mg Q4H PRN NG For Pain 07/11/19 08:00 08/10/19 07:59 Albuterol Sulfate (Proventil MDI) 2 puff Q4HRT INH 06/06/19 23:00 08/30/19 18:59 07/11/19 07:04 Chlorhexidine Gluconate (Michelle-Hex 2%) 1 applic DAILY@1999 TOPIC 06/07/19 20:00 09/05/19 19:59 07/10/19 20:08 Dextrose (Dextrose 50%) 25 ml Q30M PRN IV Hypoglycemia 06/20/19 19:30 09/18/19 19:29 Dextrose (Dextrose 50%) 50 ml Q30M PRN IV Hypoglycemia 06/20/19 19:30 09/18/19 19:29 Dopamine HCl/ Dextrose 250 ml @ 0 mls/hr Q24H PRN IV For hypotension 06/13/19 08:15 09/11/19 08:14 Enoxaparin Sodium (Lovenox) 30 mg DAILY SUBQ 06/07/19 09:00 7/17/20 08:59 07/10/19 08:17 Epoetin Aftab (Epoetin Aftab(ESRD on dialysis)) 10,000 unit SUBQ 06/07/19 21:00 08/31/19 20:59 07/09/19 22:05 Fentanyl Citrate 250 ml @ 0 mls/hr Q24H IV 06/24/19 06:00 09/22/19 05:59 07/10/19 21:19 Hydralazine HCl (Apresoline) 10 mg Q4H PRN IV Blood pressure over 160 systol 06/07/19 10:15 09/05/19 10:14 Insulin Aspart (NovoLOG) EVERY 6 HOURS SUBQ 06/21/19 00:00 09/19/19 00:00 07/11/19 05:49 Meropenem 500 mg/ Sodium Chloride 55 ml @ 110 mls/hr Q24H IVPB 07/09/19 18:00 07/14/19 17:59 07/10/19 17:26 Metoclopramide HCl (Reglan) 5 mg Q8H PRN IVP Nausea & Vomiting 06/18/19 12:00 07/18/19 11:59 06/19/19 00:50 Midodrine (Pro-Amatine) 10 mg THREE TIMES A DAY NG 06/09/19 13:00 09/07/19 12:59 07/10/19 17:26 Norepinephrine Bitartrate 8 mg/ Dextrose 283 ml @ 0 mls/hr Q24H IV 06/23/19 23:00 07/23/19 22:59 07/10/19 20:15 Pantoprazole (Protonix) 40 mg DAILY IVP 06/19/19 09:00 07/19/19 08:59 07/10/19 08:17 Sevelamer Carbonate (Renvela) 1,600 mg Q8HR NG 06/25/19 22:00 09/05/19 12:59 07/11/19 05:25 Vancomycin HCl (Vanco rx to dose) 1 ea DAILY PRN MISC Per rx protocol 07/01/19 11:00 07/31/19 10:59 Last 24 Hour Vital Signs Date Time Temp Pulse Resp B/P (MAP) Pulse Ox O2 Delivery O2 Flow Rate FiO2 07/11/19 07:04 109 26 100 Mechanical Ventilator 30 111 26 30 07/11/19 07:00 111 26 126/79 (95) 100 07/11/19 07:00 26 116/79 Mechanical Ventilator 30 07/11/19 07:00 116/79 07/11/19 06:30 111 26 07/11/19 06:30 111 26 98/68 (78) 100 07/11/19 06:15 114 14 118/76 (90) 100 07/11/19 06:00 26 119/82 Mechanical Ventilator 30 07/11/19 06:00 119/82 07/11/19 06:00 111 26 119/82 (94) 100 07/11/19 05:45 108 19 119/81 (94) 100 07/11/19 05:30 109 17 113/74 (87) 100 07/11/19 05:15 115 18 121/81 (94) 100 07/11/19 05:00 115 22 121/86 (98) 100 07/11/19 05:00 22 121/86 Mechanical Ventilator 30 07/11/19 05:00 121/86 07/11/19 04:45 114 13 127/77 (94) 100 07/11/19 04:30 109 25 131/75 (93) 100 07/11/19 04:15 95 25 107/67 (80) 100 07/11/19 04:00 98.9 94 26 87/57 (67) 100 07/11/19 04:00 26 87/57 Mechanical Ventilator 30 07/11/19 04:00 87/57 07/11/19 04:00 30 07/11/19 04:00 Mechanical Ventilator 07/11/19 03:47 96 27 86/58 (67) 100 07/11/19 03:30 99 26 92/56 (68) 100 07/11/19 03:08 105 26 117/67 (84) 100 07/11/19 03:07 106 26 100 Mechanical Ventilator 30 101 26 30 07/11/19 03:02 104 07/11/19 03:00 103 26 87/56 (66) 100 07/11/19 03:00 26 87/56 Mechanical Ventilator 30 07/11/19 03:00 87/56 07/11/19 02:45 108 26 88/57 (67) 100 07/11/19 02:30 113 15 123/77 (92) 100 07/11/19 02:15 119 21 117/66 (83) 100 07/11/19 02:00 27 132/74 Mechanical Ventilator 30 07/11/19 02:00 132/74 07/11/19 02:00 127 27 132/74 (93) 100 07/11/19 01:45 127 31 132/76 (94) 100 07/11/19 01:30 125 27 129/80 (96) 100 07/11/19 01:15 127 32 132/78 (96) 100 07/11/19 01:00 129 31 135/76 (95) 100 07/11/19 01:00 31 135/76 Mechanical Ventilator 30 07/11/19 01:00 135/76 07/11/19 00:45 127 31 127/86 (100) 100 07/11/19 00:34 101.0 07/11/19 00:30 126 36 135/77 (96) 100 07/11/19 00:15 121 29 121/78 (92) 100 07/11/19 00:00 Mechanical Ventilator 07/11/19 00:00 22 99/60 Mechanical Ventilator 30 07/11/19 00:00 99/60 07/11/19 00:00 101.0 126 22 99/60 (73) 100 07/11/19 00:00 30 07/11/19 00:00 126 07/10/19 23:45 128 32 130/81 (97) 100 07/10/19 23:35 26 128/82 Mechanical Ventilator 30 07/10/19 23:30 119 27 114/67 (83) 100 07/10/19 23:15 130 33 134/70 (91) 100 07/10/19 23:14 121 29 100 Mechanical Ventilator 30 121 31 30 07/10/19 23:00 124 34 128/103 (111) 100 07/10/19 23:00 34 128/103 Mechanical Ventilator 30 07/10/19 23:00 128/103 07/10/19 22:45 121 28 142/77 (98) 100 07/10/19 22:30 110 30 135/77 (96) 100 07/10/19 22:15 95 30 120/72 (88) 100 07/10/19 22:00 31 137/74 Mechanical Ventilator 30 07/10/19 22:00 137/74 07/10/19 22:00 94 31 137/74 (95) 100 07/10/19 21:45 87 21 92/56 (68) 100 07/10/19 21:30 92 27 93/56 (68) 100 07/10/19 21:19 26 91/59 Mechanical Ventilator 30 07/10/19 21:00 26 83/50 Mechanical Ventilator 30 07/10/19 21:00 83/50 07/10/19 21:00 86 26 83/50 (61) 100 07/10/19 20:45 93 26 93/59 (70) 100 07/10/19 20:30 92 26 83/51 (62) 100 07/10/19 20:28 96 26 81/53 (62) 100 07/10/19 20:21 101 26 73/46 (55) 100 07/10/19 20:20 83/51 07/10/19 20:18 104 26 76/49 (58) 100 07/10/19 20:15 103 26 73/43 (53) 100 07/10/19 20:15 80/49 07/10/19 20:12 103 26 72/48 (56) 100 07/10/19 20:00 Mechanical Ventilator 07/10/19 20:00 27 80/49 Mechanical Ventilator 30 07/10/19 20:00 98.9 106 27 80/49 (59) 100 07/10/19 20:00 30 07/10/19 19:49 102 24 98/58 (71) 100 07/10/19 19:47 102 27 68/49 (55) 100 07/10/19 19:45 102 26 71/50 (57) 100 07/10/19 19:38 104 26 75/49 (58) 100 07/10/19 19:30 26 69/53 Mechanical Ventilator 30 07/10/19 19:30 107 26 69/53 (58) 100 07/10/19 19:21 107 26 100 Mechanical Ventilator 30 111 26 30 07/10/19 19:15 107 07/10/19 19:15 114 26 95/58 (70) 100 07/10/19 19:06 107 27 72/52 (59) 100 07/10/19 19:00 24 71/48 Mechanical Ventilator 30 07/10/19 19:00 108 24 71/48 (56) 100 07/10/19 18:30 113 27 86/48 (61) 100 07/10/19 18:15 26 86/48 Mechanical Ventilator 30 07/10/19 18:00 113 26 87/64 (72) 100 07/10/19 18:00 25 108/77 Mechanical Ventilator 30 07/10/19 17:30 112 26 86/53 (64) 07/10/19 17:15 26 86/53 Mechanical Ventilator 30 07/10/19 17:00 26 77/44 Mechanical Ventilator 30 07/10/19 17:00 112 26 77/44 (55) 100 07/10/19 16:45 26 75/48 Mechanical Ventilator 30 07/10/19 16:30 26 67/49 Mechanical Ventilator 30 07/10/19 16:30 112 26 83/52 (62) 100 07/10/19 16:00 106 26 89/55 (66) 100 07/10/19 16:00 Mechanical Ventilator 07/10/19 16:00 99.4 106 26 89/55 (66) 100 07/10/19 16:00 115 07/10/19 16:00 26 89/55 Mechanical Ventilator 30 07/10/19 16:00 30 07/10/19 15:30 109 25 79/54 (62) 100 07/10/19 15:16 115 28 100 Mechanical Ventilator 30 120 27 30 07/10/19 15:00 112 26 77/59 (65) 100 07/10/19 15:00 26 77/59 Mechanical Ventilator 26 07/10/19 14:45 26 78/54 Mechanical Ventilator 30 07/10/19 14:30 22 85/57 Mechanical Ventilator 30 07/10/19 14:30 113 26 78/59 (65) 100 07/10/19 14:00 119 22 85/57 (66) 100 07/10/19 14:00 22 130/69 Mechanical Ventilator 30 07/10/19 13:45 28 130/81 Mechanical Ventilator 30 07/10/19 13:40 30 131/91 Mechanical Ventilator 30 07/10/19 13:35 30 131/91 Mechanical Ventilator 30 07/10/19 13:30 123 23 115/77 (90) 100 07/10/19 13:30 30 131/91 Mechanical Ventilator 30 07/10/19 13:25 33 142/93 Mechanical Ventilator 30 07/10/19 13:20 33 142/93 Mechanical Ventilator 30 07/10/19 13:15 33 142/93 Mechanical Ventilator 30 07/10/19 13:10 37 140/96 Mechanical Ventilator 30 07/10/19 13:05 37 140/96 Mechanical Ventilator 30 07/10/19 13:00 37 140/96 Mechanical Ventilator 30 07/10/19 13:00 142 38 140/96 (111) 100 07/10/19 12:30 123 36 136/85 (102) 100 07/10/19 12:00 Mechanical Ventilator 07/10/19 12:00 138 07/10/19 12:00 99.2 128 31 87/63 (71) 100 07/10/19 12:00 30 07/10/19 12:00 128 31 87/63 (71) 100 07/10/19 12:00 32 101/61 Mechanical Ventilator 30 07/10/19 11:30 129 32 101/61 (74) 100 07/10/19 11:11 124 35 100 Mechanical Ventilator 30 122 34 30 07/10/19 11:00 31 120/75 Mechanical Ventilator 30 07/10/19 11:00 125 31 120/75 (90) 100 07/10/19 10:30 122 29 121/71 (88) 100 07/10/19 10:00 26 105/61 Mechanical Ventilator 100 07/10/19 10:00 118 26 105/61 (76) 100 07/10/19 09:30 124 32 137/76 (96) 100 07/10/19 09:10 100 07/10/19 09:00 27 94/60 Mechanical Ventilator 30 07/10/19 09:00 120 26 94/60 (71) 100 07/10/19 08:30 126 32 109/81 (90) 100 07/10/19 08:00 128 07/10/19 08:00 31 112/77 Mechanical Ventilator 30 07/10/19 08:00 98.8 126 31 112/77 (89) 100 07/10/19 08:00 30 07/10/19 08:00 Mechanical Ventilator 07/10/19 08:00 122 07/10/19 07:30 126 34 122/71 (88) 100 07/10/19 07:06 129 35 100 Mechanical Ventilator 30 129 32 30 07/10/19 07:00 129 35 113/72 (86) 100 07/10/19 07:00 35 113/72 Mechanical Ventilator 30 07/10/19 06:45 127 32 07/10/19 06:30 127 32 119/73 (88) 100 07/10/19 06:15 126 31 135/74 (94) 100 07/10/19 06:00 118 28 88/57 (67) 100 07/10/19 06:00 28 88/57 Mechanical Ventilator 30 07/10/19 05:30 121 33 114/67 (83) 100 07/10/19 05:00 113 26 118/76 (90) 100 07/10/19 05:00 26 118/76 Mechanical Ventilator 30 07/10/19 04:30 112 26 85/56 (66) 100 07/10/19 04:15 109 26 96/66 (76) 100 07/10/19 04:00 26 95/56 Mechanical Ventilator 30 07/10/19 04:00 30 07/10/19 04:00 99.0 109 26 95/56 (69) 100 07/10/19 04:00 Mechanical Ventilator 07/10/19 03:44 109 26 100 Mechanical Ventilator 30 109 26 30 07/10/19 03:30 112 26 93/61 (72) 100 07/10/19 03:07 111 07/10/19 03:00 115 27 114/71 (85) 100 07/10/19 03:00 27 114/71 Mechanical Ventilator 30 07/10/19 02:30 117 36 125/80 (95) 100 07/10/19 02:00 27 114/74 Mechanical Ventilator 30 07/10/19 02:00 113 27 114/74 (87) 100 07/10/19 01:30 117 29 143/76 (98) 100 07/10/19 01:00 122 30 129/80 (96) 100 07/10/19 01:00 26 129/80 Mechanical Ventilator 30 07/10/19 00:30 119 34 115/77 (90) 100 07/10/19 00:00 30 07/10/19 00:00 114 07/10/19 00:00 Mechanical Ventilator 07/10/19 00:00 26 108/54 Mechanical Ventilator 30 07/10/19 00:00 99.2 114 26 108/64 (79) 100 07/09/19 23:30 116 26 113/71 (85) 100 07/09/19 23:01 110 26 100 Mechanical Ventilator 30 110 26 30 07/09/19 23:00 20 127/84 Mechanical Ventilator 30 07/09/19 23:00 113/71 07/09/19 23:00 114 20 127/84 (98) 100 07/09/19 22:30 117 27 115/65 (82) 100 07/09/19 22:00 27 118/78 Mechanical Ventilator 30 07/09/19 22:00 118 27 118/74 (89) 100 07/09/19 21:30 115 30 127/74 (91) 100 07/09/19 21:27 26 120/72 Mechanical Ventilator 07/09/19 21:00 113 30 136/78 (97) 100 07/09/19 20:30 100.4 112 30 136/81 (99) 100 07/09/19 20:00 30 07/09/19 20:00 113 28 123/75 (91) 100 07/09/19 20:00 Mechanical Ventilator 07/09/19 19:59 114 07/09/19 19:30 108 27 124/77 (93) 100 07/09/19 19:11 105 26 100 Mechanical Ventilator 30 105 26 30 07/09/19 19:00 106 25 120/78 (92) 100 07/09/19 18:00 27 91/68 Mechanical Ventilator 10.0 30 07/09/19 18:00 100.0 102 27 91/68 (76) 100 07/09/19 17:08 102 26 111/83 (92) 100 07/09/19 17:00 26 118/83 Mechanical Ventilator 10.0 30 07/09/19 16:00 30 07/09/19 16:00 Mechanical Ventilator 07/09/19 16:00 26 91/67 Mechanical Ventilator 10.0 30 07/09/19 16:00 98.9 97 26 91/67 (75) 100 07/09/19 15:18 27 128/68 Mechanical Ventilator 10.0 30 07/09/19 15:00 101 27 128/68 (88) 100 07/09/19 14:56 101 26 100 Mechanical Ventilator 30 100 26 30 07/09/19 14:00 17 95/72 Mechanical Ventilator 10.0 30 07/09/19 14:00 103 27 95/72 (80) 100 07/09/19 13:00 14 127/68 Mechanical Ventilator 100.0 30 07/09/19 13:00 106 18 86/60 (69) 100 07/09/19 12:00 30 07/09/19 12:00 14 103/63 Mechanical Ventilator 10.0 30 07/09/19 12:00 Mechanical Ventilator 07/09/19 12:00 120 07/09/19 12:00 100.0 113 16 103/63 (76) 100 07/09/19 11:15 103 16 112/72 (85) 100 07/09/19 11:00 103 0 100 07/09/19 11:00 103 0 100 07/09/19 11:00 15 112/72 Mechanical Ventilator 10.0 30 07/09/19 10:49 104 27 100 Mechanical Ventilator 30 102 26 30 07/09/19 10:00 105 17 100 07/09/19 10:00 15 111/69 Mechanical Ventilator 10.0 30 07/09/19 10:00 105 17 111/69 (83) 100 07/09/19 09:45 108 14 89/57 (68) 100 07/09/19 09:45 108 14 89/57 (68) 100 07/09/19 09:30 112 24 112/68 (83) 100 07/09/19 09:30 112 24 112/68 (83) 100 07/09/19 09:15 128/71 (90) 07/09/19 09:15 128/71 (90) 07/09/19 09:00 124/71 (88) 07/09/19 09:00 16 124/71 Mechanical Ventilator 10.0 30 07/09/19 09:00 124/71 (88) 07/09/19 08:45 107 26 93/70 (78) 100 07/09/19 08:45 107 26 93/70 (78) 100 07/09/19 08:30 112 27 135/73 (93) 100 07/09/19 08:30 112 27 135/73 (93) 100 07/09/19 08:15 106 1 81/55 (64) 100 07/09/19 08:15 106 1 81/55 (64) 100 Intake and Output 07/10/19 07/11/19 19:00 07:00 Intake Total 650.22 ml 591.76 ml Output Total 0 ml 0 ml Balance 650.22 ml 591.76 ml Free Water 90 ml IV Total 140.22 ml 141.76 ml Tube Feeding 420 ml 280 ml Other 170 ml Output Urine Total 0 ml 0 ml # Bowel Movements 2 4 Labs Test 07/09/19 04:15 07/10/19 04:00 07/11/19 05:30 White Blood Count 18.2 K/UL (4.8-10.8) 18.5 K/UL (4.8-10.8) 18.5 K/UL (4.8-10.8) Red Blood Count 3.23 M/UL (4.70-6.10) 3.34 M/UL (4.70-6.10) 3.72 M/UL (4.70-6.10) Hemoglobin 9.4 G/DL (14.2-18.0) 9.5 G/DL (14.2-18.0) 10.7 G/DL (14.2-18.0) Hematocrit 29.8 % (42.0-52.0) 30.8 % (42.0-52.0) 34.3 % (42.0-52.0) Mean Corpuscular Volume 92 FL (80-99) 92 FL (80-99) 92 FL (80-99) Mean Corpuscular Hemoglobin 29.1 PG (27.0-31.0) 28.5 PG (27.0-31.0) 28.9 PG (27.0-31.0) Mean Corpuscular Hemoglobin Concent 31.5 G/DL (32.0-36.0) 31.0 G/DL (32.0-36.0) 31.3 G/DL (32.0-36.0) Red Cell Distribution Width 16.2 % (11.6-14.8) 16.7 % (11.6-14.8) 16.4 % (11.6-14.8) Platelet Count 506 K/UL (150-450) 407 K/UL (150-450) 447 K/UL (150-450) Mean Platelet Volume 5.7 FL (6.5-10.1) 6.1 FL (6.5-10.1) 6.0 FL (6.5-10.1) Neutrophils (%) (Auto) % (45.0-75.0) % (45.0-75.0) % (45.0-75.0) Lymphocytes (%) (Auto) % (20.0-45.0) % (20.0-45.0) % (20.0-45.0) Monocytes (%) (Auto) % (1.0-10.0) % (1.0-10.0) % (1.0-10.0) Eosinophils (%) (Auto) % (0.0-3.0) % (0.0-3.0) % (0.0-3.0) Basophils (%) (Auto) % (0.0-2.0) % (0.0-2.0) % (0.0-2.0) Differential Total Cells Counted 100 100 Neutrophils % (Manual) 94 % (45-75) 84 % (45-75) Lymphocytes % (Manual) 3 % (20-45) 9 % (20-45) Monocytes % (Manual) 2 % (1-10) 6 % (1-10) Eosinophils % (Manual) 1 % (0-3) 1 % (0-3) Basophils % (Manual) 0 % (0-2) 0 % (0-2) Band Neutrophils 0 % (0-8) 0 % (0-8) Platelet Estimate Increased Adequate Platelet Morphology Normal Normal Anisocytosis 1+ 1+ Sodium Level 143 MMOL/L (136-145) 141 MMOL/L (136-145) 143 MMOL/L (136-145) Potassium Level 4.7 MMOL/L (3.5-5.1) 4.2 MMOL/L (3.5-5.1) 5.0 MMOL/L (3.5-5.1) Chloride Level 100 MMOL/L (98-107) 97 MMOL/L (98-107) 99 MMOL/L (98-107) Carbon Dioxide Level 26 MMOL/L (21-32) 25 MMOL/L (21-32) 24 MMOL/L (21-32) Anion Gap 17 mmol/L (5-15) 19 mmol/L (5-15) 20 mmol/L (5-15) Blood Urea Nitrogen 86 mg/dL (7-18) 73 mg/dL (7-18) 97 mg/dL (7-18) Creatinine 11.8 MG/DL (0.55-1.30) 10.3 MG/DL (0.55-1.30) 12.2 MG/DL (0.55-1.30) Estimat Glomerular Filtration Rate 4.3 mL/min (>60) 5.1 mL/min (>60) 4.2 mL/min (>60) Glucose Level 180 MG/DL (74-106) 223 MG/DL (74-106) 363 MG/DL (74-106) Calcium Level 10.0 MG/DL (8.5-10.1) 9.9 MG/DL (8.5-10.1) 10.5 MG/DL (8.5-10.1) Phosphorus Level 6.5 MG/DL (2.5-4.9) 6.7 MG/DL (2.5-4.9) Magnesium Level 3.1 MG/DL (1.8-2.4) 3.2 MG/DL (1.8-2.4) Total Bilirubin 0.5 MG/DL (0.2-1.0) 0.4 MG/DL (0.2-1.0) Aspartate Amino Transf (AST/SGOT) 34 U/L (15-37) 16 U/L (15-37) Alanine Aminotransferase (ALT/SGPT) 21 U/L (12-78) 20 U/L (12-78) Alkaline Phosphatase 94 U/L (46-116) 131 U/L (46-116) C-Reactive Protein, Quantitative 6.3 mg/dL (0.00-0.90) 13.8 mg/dL (0.00-0.90) Pro-B-Type Natriuretic Peptide 98455 pg/mL (0-125) Total Protein 10.1 G/DL (6.4-8.2) 10.6 G/DL (6.4-8.2) Albumin 3.3 G/DL (3.4-5.0) 3.3 G/DL (3.4-5.0) Globulin 6.8 g/dL 7.3 g/dL Albumin/Globulin Ratio 0.5 (1.0-2.7) 0.5 (1.0-2.7) Polychromasia 1+ Hypochromasia 1+ Random Vancomycin Level 28.7 ug/mL Height (Feet): 6 Height (Inches): 1.00 Weight (Pounds): 144 Objective Sp02 EP Interpretation: reviewed General: nv, confused, sedated Heent: bilateral eye normal inspection, bilateral eye PERRL ++Ng Respiratory: normal breath sounds, no respiratory distress, intubated/vent +++ trach+++ Cardiovascular: regular rate, rhythm, no edema Gastrointestinal: normal inspection, soft, non-distended Rectal: deferred Musculoskeletal: normal range of motion, non-tender, R fem cath++ Neurologic: alert, motor strength/tone normal, sensory intact, responsive, speech normal Skin: Decubitus/Ulcer - See RN skin exam. : jamaal+ Greg Cabral MD July 11, 2019 08:15
[2019-07-11] MEDS: Midodrine 10mg tab NG SCH ×3 (08:39→17:21)
[2019-07-11] MEDS: Pantoprazole Inj IVP SCH (08:39)
[2019-07-11] MEDS: Enoxaparin 30mg Inj SUBQ SCH (08:39)
--- NOTE | 2019-07-11 09:20 | Nephrology Progress Note ---
Assessment/Plan Problem List: (1) CASSANDRA (acute kidney injury) (2) Anemia in chronic kidney disease (CKD) (3) HTN (hypertension) (4) COVID-19 Assessment Acute renal failure most likely superimposed on chronic kidney disease Suspected COVID-19 virus infection Possible Pneumonia, lymphopenia, elevated AST Cardiomegaly, possible CHF COPD Hypertension Anemia, most likely related to chronic kidney disease Plan July 10: Plan for dialysis tomorrow July 11. Waiting for consent to proceed with PEG. Continue per consultants. Medication reviewed. Labs reviewed. Discussed with RN. July 09: Dialyzed yesterday. Labs reviewed. Medication reviewed. Next hemodialysis July 11. July 08: Patient has tracheostomy now. Connected to ventilator. Due for dialysis today. Continue per consultants. Discussed with SHANIQUE Romero. July 07: Patient is due for tracheostomy today. Patient was last dialyzed July 05. Will order dialysis for tomorrow. July 06: Patient is intubated on ventilator however the plan is to extubate today. Patient was dialysis yesterday July 05. The dialysis time was cut short due to patient's respiratory distress. Only 1 L was removed during dialysis yesterday. Today's lab reviewed. Continue per consultants. Will arrange for dialysis as needed. July 05: Patient due for dialysis today. Remains intubated. Will schedule permacath placement in a.m. blood cultures on July 04 are negative. July 04: Patient was dialyzed yesterday. Due for dialysis tomorrow. Continues to be intubated. After tomorrow's dialysis will order a permacath. July 03: Dialysis is about to be started now Continues to be intubated Will plan to remove the femoral dialysis catheter and exchanged for a new temporary catheter per ID recommendation We will check surveillance blood culture tomorrow July 02: Patient was dialyzed yesterday and due for dialysis tomorrow Stable from renal standpoint W on dialysis Continue per consultants, weaning....... etc. July 01: Dialysis today Other status unchanged June 30: Due for dialysis tomorrow Remains intubated on ventilator Labs and medication reviewed Discussed with RN Stable from renal standpoint of view June 29: Dialyzed yesterday Due for dialysis tomorrow Stable from renal standpoint to view Keeps failing weaning process June 28: Patient due for dialysis today Stable from renal standpoint to view Continue per consultants June 27: Labs reviewed Due due for dialysis June 28 Discussed with SHANIQUE Dick Continue per consultants Remains intubated on ventilator June 26 Labs reviewed Dialyzed yesterday Started on weaning today Continue to monitor renal parameters June 25: On dialysis now Potassium supplement implemented Continue per consultants Next dialysis June 27June 15: Status unchanged Dialyzed yesterday will dialyze again tomorrow Potassium supplements given Discussed with RN June 14: Due dialysis today Status: Remains intubated on ventilator June 22: Status unchanged Dialyzed yesterday and duefordialysistomorrow Serum sodium stable today June 21 Remains intubated on ventilator Due dialysis today Emphasized high sodium bath for dialysis June 20: Remains intubated on ventilator Dialyzed June 19 next dialysis June 21 Serum sodium 128, will give 250 cc 3% saline Remains full code Discussed with RN Iron panel ordered June 19: Discussed with RN. Patient due for dialysis today. Continue pulmonary support. Remains full code. June 18: Patient dialyzed yesterday June 17 Serum sodium improved but still low Arrange for dialysis tomorrow June 19 Continue per consultants June 17: Due for dialysis today Today's lab reviewed, low serum sodium noted, Emphasized on high sodium bath to dialysis nurse Discussed with SHANIQUE Yuen June 7: Dialyzed yesterday Remains intubated Labs reviewed, serum sodium 131 Plan to dialyze tomorrow June 17 with high sodium bath Discussed with SHANIQUE Yuen June 6: Due for dialysis today Labs reviewed Discussed with RN Transfuse 1 unit of packed RBCs today for low hemoglobin of 7.1 June 5: Blood pressure well maintained Receive dialysis June 13 next hemodialysis June 15June 4: Discussed with RN in ICU Patient did not receive proper dialysis yesterday due to dialysis catheter malfunction Catheter to be adjusted today and dialyzed to be resumed today Continue per consultants Positive for COVID 28 June 2: Patient now intubated on mechanical ventilation Discussed with SHANIQUE Yuen, today June 12 Patient received dialysis yesterday June 10 next hemodialysis June 12 Blood pressure better maintained Today's labs reviewed Continue per consultants Previously patient received dialysis last evening June 05, next dialysis June 07 which was incomplete due to patient's hypotension Will start on midodrine for blood pressure support. Meanwhile continue other pressors as needed Previously Patient is doing poorly, septic, white blood cells are rising, Hypotension somewhat improved We will keep n.p.o. , NG tube for medications, and change medication to IV as needed Patient remains full code Monitor vancomycin level Previously: Patient pulled out his femoral catheter yesterday June 03 which was reinserted by Dr. Mast Patient scheduled for dialysis again June 04, which again was not done due to dialysis nurse citing catheter malfunction Meanwhile continue management per ID, pulmonary , and psych. Meanwhile white blood cell count is rising. Patient blood pressure borderline low. Will check ABG Previously May 31 : I believe patient need dialysis treatment He however needs to competency assessment if can make decisions or not I will communicate with Dr. Mulligan Previously: Per pulmonary and ID advice Adjust blood pressure medication Renal diet Anemia work-up 2D echocardiogram refused Kidney ultrasound refused Jules catheter Urine studies Per orders Subjective ROS Limited/Unobtainable: Yes Objective Objective Last 24 Hour Vital Signs Date Time Temp Pulse Resp B/P (MAP) Pulse Ox O2 Delivery O2 Flow Rate FiO2 07/11/19 08:51 110 31 07/11/19 08:50 100 07/11/19 08:00 30 07/11/19 08:00 Mechanical Ventilator 07/11/19 07:04 109 26 100 Mechanical Ventilator 30 111 26 30 07/11/19 07:00 111 26 126/79 (95) 100 07/11/19 07:00 26 116/79 Mechanical Ventilator 30 07/11/19 07:00 116/79 07/11/19 06:30 111 26 07/11/19 06:30 111 26 98/68 (78) 100 07/11/19 06:15 114 14 118/76 (90) 100 07/11/19 06:00 26 119/82 Mechanical Ventilator 30 07/11/19 06:00 119/82 07/11/19 06:00 111 26 119/82 (94) 100 07/11/19 05:45 108 19 119/81 (94) 100 07/11/19 05:30 109 17 113/74 (87) 100 07/11/19 05:15 115 18 121/81 (94) 100 07/11/19 05:00 115 22 121/86 (98) 100 07/11/19 05:00 22 121/86 Mechanical Ventilator 30 07/11/19 05:00 121/86 07/11/19 04:45 114 13 127/77 (94) 100 07/11/19 04:30 109 25 131/75 (93) 100 07/11/19 04:15 95 25 107/67 (80) 100 07/11/19 04:00 98.9 94 26 87/57 (67) 100 07/11/19 04:00 26 87/57 Mechanical Ventilator 30 07/11/19 04:00 87/57 07/11/19 04:00 30 07/11/19 04:00 Mechanical Ventilator 07/11/19 03:47 96 27 86/58 (67) 100 07/11/19 03:30 99 26 92/56 (68) 100 07/11/19 03:08 105 26 117/67 (84) 100 07/11/19 03:07 106 26 100 Mechanical Ventilator 30 101 26 30 07/11/19 03:02 104 07/11/19 03:00 103 26 87/56 (66) 100 07/11/19 03:00 26 87/56 Mechanical Ventilator 30 07/11/19 03:00 87/56 07/11/19 02:45 108 26 88/57 (67) 100 07/11/19 02:30 113 15 123/77 (92) 100 07/11/19 02:15 119 21 117/66 (83) 100 07/11/19 02:00 27 132/74 Mechanical Ventilator 30 07/11/19 02:00 132/74 07/11/19 02:00 127 27 132/74 (93) 100 07/11/19 01:45 127 31 132/76 (94) 100 07/11/19 01:30 125 27 129/80 (96) 100 07/11/19 01:15 127 32 132/78 (96) 100 07/11/19 01:00 129 31 135/76 (95) 100 07/11/19 01:00 31 135/76 Mechanical Ventilator 30 07/11/19 01:00 135/76 07/11/19 00:45 127 31 127/86 (100) 100 07/11/19 00:34 101.0 07/11/19 00:30 126 36 135/77 (96) 100 07/11/19 00:15 121 29 121/78 (92) 100 07/11/19 00:00 Mechanical Ventilator 07/11/19 00:00 22 99/60 Mechanical Ventilator 30 07/11/19 00:00 99/60 07/11/19 00:00 101.0 126 22 99/60 (73) 100 07/11/19 00:00 30 07/11/19 00:00 126 07/10/19 23:45 128 32 130/81 (97) 100 07/10/19 23:35 26 128/82 Mechanical Ventilator 30 07/10/19 23:30 119 27 114/67 (83) 100 07/10/19 23:15 130 33 134/70 (91) 100 07/10/19 23:14 121 29 100 Mechanical Ventilator 30 121 31 30 07/10/19 23:00 124 34 128/103 (111) 100 07/10/19 23:00 34 128/103 Mechanical Ventilator 30 07/10/19 23:00 128/103 07/10/19 22:45 121 28 142/77 (98) 100 07/10/19 22:30 110 30 135/77 (96) 100 07/10/19 22:15 95 30 120/72 (88) 100 07/10/19 22:00 31 137/74 Mechanical Ventilator 30 07/10/19 22:00 137/74 07/10/19 22:00 94 31 137/74 (95) 100 07/10/19 21:45 87 21 92/56 (68) 100 07/10/19 21:30 92 27 93/56 (68) 100 07/10/19 21:19 26 91/59 Mechanical Ventilator 30 07/10/19 21:00 26 83/50 Mechanical Ventilator 30 07/10/19 21:00 83/50 07/10/19 21:00 86 26 83/50 (61) 100 07/10/19 20:45 93 26 93/59 (70) 100 07/10/19 20:30 92 26 83/51 (62) 100 07/10/19 20:28 96 26 81/53 (62) 100 07/10/19 20:21 101 26 73/46 (55) 100 07/10/19 20:20 83/51 07/10/19 20:18 104 26 76/49 (58) 100 07/10/19 20:15 103 26 73/43 (53) 100 20 20:15 80/49 07/10/19 20:12 103 26 72/48 (56) 100 07/10/19 20:00 Mechanical Ventilator 07/10/19 20:00 27 80/49 Mechanical Ventilator 30 07/10/19 20:00 98.9 106 27 80/49 (59) 100 07/10/19 20:00 30 07/10/19 19:49 102 24 98/58 (71) 100 07/10/19 19:47 102 27 68/49 (55) 100 07/10/19 19:45 102 26 71/50 (57) 100 07/10/19 19:38 104 26 75/49 (58) 100 07/10/19 19:30 26 69/53 Mechanical Ventilator 30 07/10/19 19:30 107 26 69/53 (58) 100 07/10/19 19:21 107 26 100 Mechanical Ventilator 30 111 26 30 07/10/19 19:15 107 07/10/19 19:15 114 26 95/58 (70) 100 07/10/19 19:06 107 27 72/52 (59) 100 07/10/19 19:00 24 71/48 Mechanical Ventilator 30 07/10/19 19:00 108 24 71/48 (56) 100 07/10/19 18:30 113 27 86/48 (61) 100 07/10/19 18:15 26 86/48 Mechanical Ventilator 30 07/10/19 18:00 113 26 87/64 (72) 100 07/10/19 18:00 25 108/77 Mechanical Ventilator 30 07/10/19 17:30 112 26 86/53 (64) 07/10/19 17:15 26 86/53 Mechanical Ventilator 30 07/10/19 17:00 26 77/44 Mechanical Ventilator 30 07/10/19 17:00 112 26 77/44 (55) 100 07/10/19 16:45 26 75/48 Mechanical Ventilator 30 07/10/19 16:30 26 67/49 Mechanical Ventilator 30 07/10/19 16:30 112 26 83/52 (62) 100 07/10/19 16:00 106 26 89/55 (66) 100 07/10/19 16:00 Mechanical Ventilator 07/10/19 16:00 99.4 106 26 89/55 (66) 100 07/10/19 16:00 115 07/10/19 16:00 26 89/55 Mechanical Ventilator 30 07/10/19 16:00 30 07/10/19 15:30 109 25 79/54 (62) 100 07/10/19 15:16 115 28 100 Mechanical Ventilator 30 120 27 30 07/10/19 15:00 112 26 77/59 (65) 100 07/10/19 15:00 26 77/59 Mechanical Ventilator 26 07/10/19 14:45 26 78/54 Mechanical Ventilator 30 07/10/19 14:30 22 85/57 Mechanical Ventilator 30 07/10/19 14:30 113 26 78/59 (65) 100 07/10/19 14:00 119 22 85/57 (66) 100 07/10/19 14:00 22 130/69 Mechanical Ventilator 30 07/10/19 13:45 28 130/81 Mechanical Ventilator 30 07/10/19 13:40 30 131/91 Mechanical Ventilator 30 07/10/19 13:35 30 131/91 Mechanical Ventilator 30 07/10/19 13:30 123 23 115/77 (90) 100 07/10/19 13:30 30 131/91 Mechanical Ventilator 30 07/10/19 13:25 33 142/93 Mechanical Ventilator 30 07/10/19 13:20 33 142/93 Mechanical Ventilator 30 07/10/19 13:15 33 142/93 Mechanical Ventilator 30 07/10/19 13:10 37 140/96 Mechanical Ventilator 30 07/10/19 13:05 37 140/96 Mechanical Ventilator 30 07/10/19 13:00 37 140/96 Mechanical Ventilator 30 07/10/19 13:00 142 38 140/96 (111) 100 07/10/19 12:30 123 36 136/85 (102) 100 07/10/19 12:00 Mechanical Ventilator 07/10/19 12:00 138 07/10/19 12:00 99.2 128 31 87/63 (71) 100 07/10/19 12:00 30 07/10/19 12:00 128 31 87/63 (71) 100 07/10/19 12:00 32 101/61 Mechanical Ventilator 30 07/10/19 11:30 129 32 101/61 (74) 100 07/10/19 11:11 124 35 100 Mechanical Ventilator 30 122 34 30 07/10/19 11:00 31 120/75 Mechanical Ventilator 30 07/10/19 11:00 125 31 120/75 (90) 100 07/10/19 10:30 122 29 121/71 (88) 100 07/10/19 10:00 26 105/61 Mechanical Ventilator 100 07/10/19 10:00 118 26 105/61 (76) 100 07/10/19 09:30 124 32 137/76 (96) 100 Intake and Output 07/10/19 07/11/19 19:00 07:00 Intake Total 650.22 ml 591.76 ml Output Total 0 ml 0 ml Balance 650.22 ml 591.76 ml Free Water 90 ml IV Total 140.22 ml 141.76 ml Tube Feeding 420 ml 280 ml Other 170 ml Output Urine Total 0 ml 0 ml # Bowel Movements 2 4 Laboratory Tests 07/11/19 05:30: White Blood Count 18.5H, Red Blood Count 3.72L, Hemoglobin 10.7L, Hematocrit 34.3L, Mean Corpuscular Volume 92, Mean Corpuscular Hemoglobin 28.9, Mean Corpuscular Hemoglobin Concent 31.3L, Red Cell Distribution Width 16.4H, Platelet Count 447, Mean Platelet Volume 6.0L, Neutrophils (%) (Auto) , Lymphocytes (%) (Auto) , Monocytes (%) (Auto) , Eosinophils (%) (Auto) , Basophils (%) (Auto) , Neutrophils % (Manual) [Pending], Lymphocytes % (Manual) [Pending], Platelet Estimate [Pending], Platelet Morphology [Pending], Sodium Level 143, Potassium Level 5.0, Chloride Level 99, Carbon Dioxide Level 24, Anion Gap 20H, Blood Urea Nitrogen 97H, Creatinine 12.2H, Estimat Glomerular Filtration Rate 4.2, Glucose Level 363#H, Calcium Level 10.5H, Phosphorus Level 6.7H, Magnesium Level 3.2H, Total Bilirubin 0.4, Aspartate Amino Transf (AST/ SGOT) 16, Alanine Aminotransferase (ALT/SGPT) 20, Alkaline Phosphatase 131H, C- Reactive Protein, Quantitative 13.8H, Total Protein 10.6H, Albumin 3.3L, Globulin 7.3, Albumin/Globulin Ratio 0.5L Height (Feet): 6 Height (Inches): 1.00 Weight (Pounds): 144 General Appearance: no apparent distress, lethargic EENT: other Cardiovascular: tachycardia Respiratory/Chest: decreased breath sounds - Trach tube PEG Abdomen: distended Objective No change Mic Cole MD July 11, 2019 09:20
--- NOTE | 2019-07-11 11:48 | Infectious Diseases Prog Note ---
Assessment/Plan Assessment/Plan IMPRESSION: 1. COVID19 pneumonia Positive: 05/27, 05/31 , 06/05, 06/09 ,06/17, 06/19, 06/23, 06/27, 07/03 2. MRSA carrier. 3. Chronic kidney disease , end-stage renal disease. 4. COPD. 5. Hypertension. 6. Anemia. 7. Hypothyroidism. 8. Hyperlipidemia. 9. Major depression. 10. Leukocytosis 11. Hypotension 12. Hepatitis C 13. Hyperuricemia 14. Diarrhea 15. septic shock 16. Leukocytosis 17. Bacteremia with Staph epidermidis Subsequent cultures negative RECOMMENDATIONS: Repeat CXR, blood culture Continue Vancomycin & Meropenem Finished hydroxychloroquine. Will f/u COVID19 test Case was D/W RN Subjective ROS Limited/Unobtainable: Yes Constitutional: Reports: fever, other - [id number] Cardiovascular: Reports: other - started on Levophed Allergies: Coded Allergies: No Known Allergies (Unverified , 05/28/19) Objective Vital Signs Last 24 Hour Vital Signs Date Time Temp Pulse Resp B/P (MAP) Pulse Ox O2 Delivery O2 Flow Rate FiO2 07/11/19 11:00 117 2 100 07/11/19 10:45 122 13 118/79 (92) 99 07/11/19 10:30 121 18 115/79 (91) 100 07/11/19 10:28 123 28 100 Mechanical Ventilator 30 123 31 30 07/11/19 10:15 124 25 137/68 (91) 100 07/11/19 10:00 122 23 134/70 (91) 100 07/11/19 09:45 126 21 127/85 (99) 100 07/11/19 09:30 122 30 130/81 (97) 100 07/11/19 09:30 127 31 130/71 (90) 100 07/11/19 09:00 122 30 130/81 (97) 100 07/11/19 08:51 110 31 07/11/19 08:50 100 07/11/19 08:30 96 0 91/60 (70) 100 07/11/19 08:00 106 07/11/19 08:00 98.2 105 8 112/67 (82) 100 07/11/19 08:00 30 07/11/19 08:00 Mechanical Ventilator 07/11/19 07:30 110 17 126/66 (86) 100 07/11/19 07:04 109 26 100 Mechanical Ventilator 30 111 26 30 07/11/19 07:00 111 26 126/79 (95) 100 07/11/19 07:00 26 116/79 Mechanical Ventilator 30 07/11/19 07:00 116/79 07/11/19 06:30 111 26 07/11/19 06:30 111 26 98/68 (78) 100 07/11/19 06:15 114 14 118/76 (90) 100 07/11/19 06:00 26 119/82 Mechanical Ventilator 30 07/11/19 06:00 119/82 07/11/19 06:00 111 26 119/82 (94) 100 07/11/19 05:45 108 19 119/81 (94) 100 07/11/19 05:30 109 17 113/74 (87) 100 07/11/19 05:15 115 18 121/81 (94) 100 07/11/19 05:00 115 22 121/86 (98) 100 07/11/19 05:00 22 121/86 Mechanical Ventilator 30 07/11/19 05:00 121/86 07/11/19 04:45 114 13 127/77 (94) 100 07/11/19 04:30 109 25 131/75 (93) 100 07/11/19 04:15 95 25 107/67 (80) 100 07/11/19 04:00 98.9 94 26 87/57 (67) 100 07/11/19 04:00 26 87/57 Mechanical Ventilator 30 07/11/19 04:00 87/57 07/11/19 04:00 30 07/11/19 04:00 Mechanical Ventilator 07/11/19 03:47 96 27 86/58 (67) 100 07/11/19 03:30 99 26 92/56 (68) 100 07/11/19 03:08 105 26 117/67 (84) 100 07/11/19 03:07 106 26 100 Mechanical Ventilator 30 101 26 30 07/11/19 03:02 104 07/11/19 03:00 103 26 87/56 (66) 100 07/11/19 03:00 26 87/56 Mechanical Ventilator 30 07/11/19 03:00 87/56 07/11/19 02:45 108 26 88/57 (67) 100 07/11/19 02:30 113 15 123/77 (92) 100 07/11/19 02:15 119 21 117/66 (83) 100 07/11/19 02:00 27 132/74 Mechanical Ventilator 30 07/11/19 02:00 132/74 07/11/19 02:00 127 27 132/74 (93) 100 07/11/19 01:45 127 31 132/76 (94) 100 07/11/19 01:30 125 27 129/80 (96) 100 07/11/19 01:15 127 32 132/78 (96) 100 07/11/19 01:00 129 31 135/76 (95) 100 07/11/19 01:00 31 135/76 Mechanical Ventilator 30 07/11/19 01:00 135/76 07/11/19 00:45 127 31 127/86 (100) 100 07/11/19 00:34 101.0 07/11/19 00:30 126 36 135/77 (96) 100 07/11/19 00:15 121 29 121/78 (92) 100 07/11/19 00:00 Mechanical Ventilator 07/11/19 00:00 22 99/60 Mechanical Ventilator 30 07/11/19 00:00 99/60 07/11/19 00:00 101.0 126 22 99/60 (73) 100 07/11/19 00:00 30 07/11/19 00:00 126 07/10/19 23:45 128 32 130/81 (97) 100 07/10/19 23:35 26 128/82 Mechanical Ventilator 30 07/10/19 23:30 119 27 114/67 (83) 100 07/10/19 23:15 130 33 134/70 (91) 100 07/10/19 23:14 121 29 100 Mechanical Ventilator 30 121 31 30 07/10/19 23:00 124 34 128/103 (111) 100 07/10/19 23:00 34 128/103 Mechanical Ventilator 30 07/10/19 23:00 128/103 07/10/19 22:45 121 28 142/77 (98) 100 07/10/19 22:30 110 30 135/77 (96) 100 07/10/19 22:15 95 30 120/72 (88) 100 07/10/19 22:00 31 137/74 Mechanical Ventilator 30 07/10/19 22:00 137/74 07/10/19 22:00 94 31 137/74 (95) 100 07/10/19 21:45 87 21 92/56 (68) 100 07/10/19 21:30 92 27 93/56 (68) 100 07/10/19 21:19 26 91/59 Mechanical Ventilator 30 07/10/19 21:00 26 83/50 Mechanical Ventilator 30 07/10/19 21:00 83/50 07/10/19 21:00 86 26 83/50 (61) 100 07/10/19 20:45 93 26 93/59 (70) 100 07/10/19 20:30 92 26 83/51 (62) 100 07/10/19 20:28 96 26 81/53 (62) 100 07/10/19 20:21 101 26 73/46 (55) 100 07/10/19 20:20 83/51 07/10/19 20:18 104 26 76/49 (58) 100 07/10/19 20:15 103 26 73/43 (53) 100 07/10/19 20:15 80/49 07/10/19 20:12 103 26 72/48 (56) 100 07/10/19 20:00 Mechanical Ventilator 07/10/19 20:00 27 80/49 Mechanical Ventilator 30 07/10/19 20:00 98.9 106 27 80/49 (59) 100 07/10/19 20:00 30 07/10/19 19:49 102 24 98/58 (71) 100 07/10/19 19:47 102 27 68/49 (55) 100 07/10/19 19:45 102 26 71/50 (57) 100 07/10/19 19:38 104 26 75/49 (58) 100 07/10/19 19:30 26 69/53 Mechanical Ventilator 30 07/10/19 19:30 107 26 69/53 (58) 100 07/10/19 19:21 107 26 100 Mechanical Ventilator 30 111 26 30 07/10/19 19:15 107 07/10/19 19:15 114 26 95/58 (70) 100 07/10/19 19:06 107 27 72/52 (59) 100 07/10/19 19:00 24 71/48 Mechanical Ventilator 30 07/10/19 19:00 108 24 71/48 (56) 100 5/30/20 18:30 113 27 86/48 (61) 100 07/10/19 18:15 26 86/48 Mechanical Ventilator 30 07/10/19 18:00 113 26 87/64 (72) 100 07/10/19 18:00 25 108/77 Mechanical Ventilator 30 07/10/19 17:30 112 26 86/53 (64) 07/10/19 17:15 26 86/53 Mechanical Ventilator 30 07/10/19 17:00 26 77/44 Mechanical Ventilator 30 07/10/19 17:00 112 26 77/44 (55) 100 07/10/19 16:45 26 75/48 Mechanical Ventilator 30 07/10/19 16:30 26 67/49 Mechanical Ventilator 30 07/10/19 16:30 112 26 83/52 (62) 100 07/10/19 16:00 106 26 89/55 (66) 100 07/10/19 16:00 Mechanical Ventilator 07/10/19 16:00 99.4 106 26 89/55 (66) 100 07/10/19 16:00 115 07/10/19 16:00 26 89/55 Mechanical Ventilator 30 07/10/19 16:00 30 07/10/19 15:30 109 25 79/54 (62) 100 07/10/19 15:16 115 28 100 Mechanical Ventilator 30 120 27 30 07/10/19 15:00 112 26 77/59 (65) 100 07/10/19 15:00 26 77/59 Mechanical Ventilator 26 07/10/19 14:45 26 78/54 Mechanical Ventilator 30 07/10/19 14:30 22 85/57 Mechanical Ventilator 30 07/10/19 14:30 113 26 78/59 (65) 100 07/10/19 14:00 119 22 85/57 (66) 100 07/10/19 14:00 22 130/69 Mechanical Ventilator 30 07/10/19 13:45 28 130/81 Mechanical Ventilator 30 07/10/19 13:40 30 131/91 Mechanical Ventilator 30 07/10/19 13:35 30 131/91 Mechanical Ventilator 30 07/10/19 13:30 123 23 115/77 (90) 100 07/10/19 13:30 30 131/91 Mechanical Ventilator 30 07/10/19 13:25 33 142/93 Mechanical Ventilator 30 07/10/19 13:20 33 142/93 Mechanical Ventilator 30 07/10/19 13:15 33 142/93 Mechanical Ventilator 30 07/10/19 13:10 37 140/96 Mechanical Ventilator 30 07/10/19 13:05 37 140/96 Mechanical Ventilator 30 07/10/19 13:00 37 140/96 Mechanical Ventilator 30 07/10/19 13:00 142 38 140/96 (111) 100 07/10/19 12:30 123 36 136/85 (102) 100 07/10/19 12:00 Mechanical Ventilator 07/10/19 12:00 138 07/10/19 12:00 99.2 128 31 87/63 (71) 100 07/10/19 12:00 30 07/10/19 12:00 128 31 87/63 (71) 100 07/10/19 12:00 32 101/61 Mechanical Ventilator 30 Height (Feet): 6 Height (Inches): 1.00 Weight (Pounds): 144 HEENT: mucous membranes moist Respiratory/Chest: other - on ventilator Cardiovascular: tachycardia, other - Central & HD line Abdomen: soft, non tender, other - NG tube Extremities: no edema Neurologic/Psychiatric: disoriented Laboratory Tests Test 07/11/19 05:30 White Blood Count 18.5 K/UL (4.8-10.8) H Red Blood Count 3.72 M/UL (4.70-6.10) L Hemoglobin 10.7 G/DL (14.2-18.0) L Hematocrit 34.3 % (42.0-52.0) L Mean Corpuscular Volume 92 FL (80-99) Mean Corpuscular Hemoglobin 28.9 PG (27.0-31.0) Mean Corpuscular Hemoglobin Concent 31.3 G/DL (32.0-36.0) L Red Cell Distribution Width 16.4 % (11.6-14.8) H Platelet Count 447 K/UL (150-450) Mean Platelet Volume 6.0 FL (6.5-10.1) L Neutrophils (%) (Auto) % (45.0-75.0) Lymphocytes (%) (Auto) % (20.0-45.0) Monocytes (%) (Auto) % (1.0-10.0) Eosinophils (%) (Auto) % (0.0-3.0) Basophils (%) (Auto) % (0.0-2.0) Differential Total Cells Counted 100 Neutrophils % (Manual) 72 % (45-75) Lymphocytes % (Manual) 16 % (20-45) L Monocytes % (Manual) 9 % (1-10) Eosinophils % (Manual) 3 % (0-3) Basophils % (Manual) 0 % (0-2) Band Neutrophils 0 % (0-8) Platelet Estimate Adequate Platelet Morphology Normal Polychromasia 1+ Hypochromasia 1+ Anisocytosis 1+ Sodium Level 143 MMOL/L (136-145) Potassium Level 5.0 MMOL/L (3.5-5.1) Chloride Level 99 MMOL/L (98-107) Carbon Dioxide Level 24 MMOL/L (21-32) Anion Gap 20 mmol/L (5-15) H Blood Urea Nitrogen 97 mg/dL (7-18) H Creatinine 12.2 MG/DL (0.55-1.30) H Estimat Glomerular Filtration Rate 4.2 mL/min (>60) Glucose Level 363 MG/DL (74-106) #H Calcium Level 10.5 MG/DL (8.5-10.1) H Phosphorus Level 6.7 MG/DL (2.5-4.9) H Magnesium Level 3.2 MG/DL (1.8-2.4) H Total Bilirubin 0.4 MG/DL (0.2-1.0) Aspartate Amino Transf (AST/SGOT) 16 U/L (15-37) Alanine Aminotransferase (ALT/SGPT) 20 U/L (12-78) Alkaline Phosphatase 131 U/L (46-116) H C-Reactive Protein, Quantitative 13.8 mg/dL (0.00-0.90) H Total Protein 10.6 G/DL (6.4-8.2) H Albumin 3.3 G/DL (3.4-5.0) L Globulin 7.3 g/dL Albumin/Globulin Ratio 0.5 (1.0-2.7) L Current Medications Medications (Trade) Dose Ordered Sig/Anthony Route PRN Reason Start Time Stop Time Status Last Admin Dose Admin Acetaminophen (Tylenol) 650 mg Q4H PRN NG Temp >100.5 06/13/19 11:00 07/13/19 10:59 07/11/19 00:04 Acetaminophen (Tylenol) 650 mg Q4H PRN NG For Pain 07/11/19 08:00 08/10/19 07:59 Albuterol Sulfate (Proventil MDI) 2 puff Q4HRT INH 06/06/19 23:00 08/30/19 18:59 07/11/19 10:30 Chlorhexidine Gluconate (Michelle-Hex 2%) 1 applic DAILY@2000 TOPIC 06/07/19 20:00 09/05/19 19:59 07/10/19 20:08 Dextrose (Dextrose 50%) 25 ml Q30M PRN IV Hypoglycemia 06/20/19 19:30 09/18/19 19:29 Dextrose (Dextrose 50%) 50 ml Q30M PRN IV Hypoglycemia 06/20/19 19:30 09/18/19 19:29 Dopamine HCl/ Dextrose 250 ml @ 0 mls/hr Q24H PRN IV For hypotension 06/13/19 08:15 09/11/19 08:14 Enoxaparin Sodium (Lovenox) 30 mg DAILY SUBQ 06/07/19 09:00 08/27/19 08:59 07/11/19 08:39 Epoetin Aftab (Epoetin Aftab(ESRD on dialysis)) 10,000 unit FRI-FRI-FRI SUBQ 06/07/19 21:00 08/31/19 20:59 07/09/19 22:05 Fentanyl Citrate 250 ml @ 0 mls/hr Q24H IV 06/24/19 06:00 09/22/19 05:59 07/10/19 21:19 Hydralazine HCl (Apresoline) 10 mg Q4H PRN IV Blood pressure over 160 systol 06/07/19 10:15 09/05/19 10:14 Insulin Aspart (NovoLOG) EVERY 6 HOURS SUBQ 06/21/19 00:00 09/19/19 00:00 07/11/19 05:49 Meropenem 500 mg/ Sodium Chloride 55 ml @ 110 mls/hr Q24H IVPB 07/09/19 18:00 07/14/19 17:59 07/10/19 17:26 Metoclopramide HCl (Reglan) 5 mg Q8H PRN IVP Nausea & Vomiting 06/18/19 12:00 07/18/19 11:59 06/19/19 00:50 Midodrine (Pro-Amatine) 10 mg THREE TIMES A DAY NG 06/09/19 13:00 09/07/19 12:59 07/11/19 08:39 Norepinephrine Bitartrate 8 mg/ Dextrose 283 ml @ 0 mls/hr Q24H IV 06/23/19 23:00 07/23/19 22:59 07/10/19 20:15 Pantoprazole (Protonix) 40 mg DAILY IVP 06/19/19 09:00 07/19/19 08:59 07/11/19 08:39 Sevelamer Carbonate (Renvela) 2,400 mg Q8HR NG 07/11/19 14:00 09/05/19 12:59 Vancomycin HCl (Vanco rx to dose) 1 ea DAILY PRN MISC Per rx protocol 07/01/19 11:00 07/31/19 10:59 Ted Leyva MD July 11, 2019 11:48
--- NOTE | 2019-07-11 12:51 | Surgery Progress Note ---
Surgery Progress Note Subjective Procedure Performed tracheostomy Additional Comments unable to wean vent ill appearing labs noted will plan line change soon Objective Last 24 Hour Vital Signs Date Time Temp Pulse Resp B/P (MAP) Pulse Ox O2 Delivery O2 Flow Rate FiO2 07/11/19 11:00 15 101/57 Mechanical Ventilator 30 07/11/19 11:00 101/57 07/11/19 11:00 117 2 100 07/11/19 10:45 122 13 118/79 (92) 99 07/11/19 10:30 121 18 115/79 (91) 100 07/11/19 10:28 123 28 100 Mechanical Ventilator 30 123 31 30 07/11/19 10:15 124 25 137/68 (91) 100 07/11/19 10:00 122 23 134/70 (91) 100 07/11/19 10:00 23 134/70 Mechanical Ventilator 30 07/11/19 10:00 134/70 07/11/19 09:45 127/85 07/11/19 09:45 126 21 127/85 (99) 100 07/11/19 09:30 122 30 130/81 (97) 100 07/11/19 09:30 130/71 07/11/19 09:30 127 31 130/71 (90) 100 07/11/19 09:15 148/88 07/11/19 09:00 26 148/88 Mechanical Ventilator 07/11/19 09:00 130/81 07/11/19 09:00 122 30 130/81 (97) 100 07/11/19 08:51 110 31 07/11/19 08:50 100 07/11/19 08:30 96 0 91/60 (70) 100 07/11/19 08:00 106 07/11/19 08:00 18 91/64 Mechanical Ventilator 30 07/11/19 08:00 91/64 07/11/19 08:00 98.2 105 8 112/67 (82) 100 07/11/19 08:00 30 07/11/19 08:00 Mechanical Ventilator 07/11/19 07:30 110 17 126/66 (86) 100 07/11/19 07:04 109 26 100 Mechanical Ventilator 30 111 26 30 07/11/19 07:00 111 26 126/79 (95) 100 07/11/19 07:00 26 116/79 Mechanical Ventilator 30 07/11/19 07:00 116/79 07/11/19 06:30 111 26 07/11/19 06:30 111 26 98/68 (78) 100 07/11/19 06:15 114 14 118/76 (90) 100 07/11/19 06:00 26 119/82 Mechanical Ventilator 30 07/11/19 06:00 119/82 07/11/19 06:00 111 26 119/82 (94) 100 07/11/19 05:45 108 19 119/81 (94) 100 07/11/19 05:30 109 17 113/74 (87) 100 07/11/19 05:15 115 18 121/81 (94) 100 07/11/19 05:00 115 22 121/86 (98) 100 07/11/19 05:00 22 121/86 Mechanical Ventilator 30 07/11/19 05:00 121/86 07/11/19 04:45 114 13 127/77 (94) 100 07/11/19 04:30 109 25 131/75 (93) 100 07/11/19 04:15 95 25 107/67 (80) 100 07/11/19 04:00 98.9 94 26 87/57 (67) 100 07/11/19 04:00 26 87/57 Mechanical Ventilator 30 07/11/19 04:00 87/57 07/11/19 04:00 30 07/11/19 04:00 Mechanical Ventilator 07/11/19 03:47 96 27 86/58 (67) 100 07/11/19 03:30 99 26 92/56 (68) 100 07/11/19 03:08 105 26 117/67 (84) 100 07/11/19 03:07 106 26 100 Mechanical Ventilator 30 101 26 30 07/11/19 03:02 104 07/11/19 03:00 103 26 87/56 (66) 100 07/11/19 03:00 26 87/56 Mechanical Ventilator 30 07/11/19 03:00 87/56 07/11/19 02:45 108 26 88/57 (67) 100 07/11/19 02:30 113 15 123/77 (92) 100 07/11/19 02:15 119 21 117/66 (83) 100 07/11/19 02:00 27 132/74 Mechanical Ventilator 30 07/11/19 02:00 132/74 07/11/19 02:00 127 27 132/74 (93) 100 07/11/19 01:45 127 31 132/76 (94) 100 07/11/19 01:30 125 27 129/80 (96) 100 07/11/19 01:15 127 32 132/78 (96) 100 07/11/19 01:00 129 31 135/76 (95) 100 07/11/19 01:00 31 135/76 Mechanical Ventilator 30 07/11/19 01:00 135/76 07/11/19 00:45 127 31 127/86 (100) 100 07/11/19 00:34 101.0 07/11/19 00:30 126 36 135/77 (96) 100 07/11/19 00:15 121 29 121/78 (92) 100 07/11/19 00:00 Mechanical Ventilator 07/11/19 00:00 22 99/60 Mechanical Ventilator 30 07/11/19 00:00 99/60 07/11/19 00:00 101.0 126 22 99/60 (73) 100 07/11/19 00:00 30 07/11/19 00:00 126 07/10/19 23:45 128 32 130/81 (97) 100 07/10/19 23:35 26 128/82 Mechanical Ventilator 30 07/10/19 23:30 119 27 114/67 (83) 100 07/10/19 23:15 130 33 134/70 (91) 100 07/10/19 23:14 121 29 100 Mechanical Ventilator 30 121 31 30 07/10/19 23:00 124 34 128/103 (111) 100 07/10/19 23:00 34 128/103 Mechanical Ventilator 30 07/10/19 23:00 128/103 07/10/19 22:45 121 28 142/77 (98) 100 07/10/19 22:30 110 30 135/77 (96) 100 07/10/19 22:15 95 30 120/72 (88) 100 07/10/19 22:00 31 137/74 Mechanical Ventilator 30 07/10/19 22:00 137/74 07/10/19 22:00 94 31 137/74 (95) 100 07/10/19 21:45 87 21 92/56 (68) 100 07/10/19 21:30 92 27 93/56 (68) 100 07/10/19 21:19 26 91/59 Mechanical Ventilator 30 07/10/19 21:00 26 83/50 Mechanical Ventilator 30 07/10/19 21:00 83/50 20 21:00 86 26 83/50 (61) 100 20 20:45 93 26 93/59 (70) 100 20 20:30 92 26 83/51 (62) 100 07/10/19 20:28 96 26 81/53 (62) 100 07/10/19 20:21 101 26 73/46 (55) 100 07/10/19 20:20 83/51 07/10/19 20:18 104 26 76/49 (58) 100 07/10/19 20:15 103 26 73/43 (53) 100 07/10/19 20:15 80/49 07/10/19 20:12 103 26 72/48 (56) 100 07/10/19 20:00 Mechanical Ventilator 07/10/19 20:00 27 80/49 Mechanical Ventilator 30 07/10/19 20:00 98.9 106 27 80/49 (59) 100 07/10/19 20:00 30 07/10/19 19:49 102 24 98/58 (71) 100 07/10/19 19:47 102 27 68/49 (55) 100 07/10/19 19:45 102 26 71/50 (57) 100 07/10/19 19:38 104 26 75/49 (58) 100 07/10/19 19:30 26 69/53 Mechanical Ventilator 30 07/10/19 19:30 107 26 69/53 (58) 100 07/10/19 19:21 107 26 100 Mechanical Ventilator 30 111 26 30 07/10/19 19:15 107 07/10/19 19:15 114 26 95/58 (70) 100 20 19:06 107 27 72/52 (59) 100 07/10/19 19:00 24 71/48 Mechanical Ventilator 30 07/10/19 19:00 108 24 71/48 (56) 100 07/10/19 18:30 113 27 86/48 (61) 100 20 18:15 26 86/48 Mechanical Ventilator 30 07/10/19 18:00 113 26 87/64 (72) 100 07/10/19 18:00 25 108/77 Mechanical Ventilator 30 07/10/19 17:30 112 26 86/53 (64) 07/10/19 17:15 26 86/53 Mechanical Ventilator 30 07/10/19 17:00 26 77/44 Mechanical Ventilator 30 07/10/19 17:00 112 26 77/44 (55) 100 07/10/19 16:45 26 75/48 Mechanical Ventilator 30 07/10/19 16:30 26 67/49 Mechanical Ventilator 30 07/10/19 16:30 112 26 83/52 (62) 100 07/10/19 16:00 106 26 89/55 (66) 100 07/10/19 16:00 Mechanical Ventilator 07/10/19 16:00 99.4 106 26 89/55 (66) 100 07/10/19 16:00 115 07/10/19 16:00 26 89/55 Mechanical Ventilator 30 07/10/19 16:00 30 07/10/19 15:30 109 25 79/54 (62) 100 07/10/19 15:16 115 28 100 Mechanical Ventilator 30 120 27 30 07/10/19 15:00 112 26 77/59 (65) 100 07/10/19 15:00 26 77/59 Mechanical Ventilator 26 07/10/19 14:45 26 78/54 Mechanical Ventilator 30 07/10/19 14:30 22 85/57 Mechanical Ventilator 30 07/10/19 14:30 113 26 78/59 (65) 100 07/10/19 14:00 119 22 85/57 (66) 100 07/10/19 14:00 22 130/69 Mechanical Ventilator 30 07/10/19 13:45 28 130/81 Mechanical Ventilator 30 07/10/19 13:40 30 131/91 Mechanical Ventilator 30 07/10/19 13:35 30 131/91 Mechanical Ventilator 30 07/10/19 13:30 123 23 115/77 (90) 100 07/10/19 13:30 30 131/91 Mechanical Ventilator 30 07/10/19 13:25 33 142/93 Mechanical Ventilator 30 07/10/19 13:20 33 142/93 Mechanical Ventilator 30 07/10/19 13:15 33 142/93 Mechanical Ventilator 30 07/10/19 13:10 37 140/96 Mechanical Ventilator 30 07/10/19 13:05 37 140/96 Mechanical Ventilator 30 07/10/19 13:00 37 140/96 Mechanical Ventilator 30 07/10/19 13:00 142 38 140/96 (111) 100 I&O Intake and Output 07/10/19 07/11/19 19:00 07:00 Intake Total 650.22 ml 591.76 ml Output Total 0 ml 0 ml Balance 650.22 ml 591.76 ml Free Water 90 ml IV Total 140.22 ml 141.76 ml Tube Feeding 420 ml 280 ml Other 170 ml Output Urine Total 0 ml 0 ml # Bowel Movements 2 4 Dressing: other Wound: other Drains: other Cardiovascular: RSR Respiratory: decreased breath sounds Abdomen: soft, non-tender, present bowel sounds Extremities: no cyanosis Laboratory Tests Test 07/11/19 05:30 White Blood Count 18.5 K/UL (4.8-10.8) H Red Blood Count 3.72 M/UL (4.70-6.10) L Hemoglobin 10.7 G/DL (14.2-18.0) L Hematocrit 34.3 % (42.0-52.0) L Mean Corpuscular Volume 92 FL (80-99) Mean Corpuscular Hemoglobin 28.9 PG (27.0-31.0) Mean Corpuscular Hemoglobin Concent 31.3 G/DL (32.0-36.0) L Red Cell Distribution Width 16.4 % (11.6-14.8) H Platelet Count 447 K/UL (150-450) Mean Platelet Volume 6.0 FL (6.5-10.1) L Neutrophils (%) (Auto) % (45.0-75.0) Lymphocytes (%) (Auto) % (20.0-45.0) Monocytes (%) (Auto) % (1.0-10.0) Eosinophils (%) (Auto) % (0.0-3.0) Basophils (%) (Auto) % (0.0-2.0) Differential Total Cells Counted 100 Neutrophils % (Manual) 72 % (45-75) Lymphocytes % (Manual) 16 % (20-45) L Monocytes % (Manual) 9 % (1-10) Eosinophils % (Manual) 3 % (0-3) Basophils % (Manual) 0 % (0-2) Band Neutrophils 0 % (0-8) Platelet Estimate Adequate Platelet Morphology Normal Polychromasia 1+ Hypochromasia 1+ Anisocytosis 1+ Sodium Level 143 MMOL/L (136-145) Potassium Level 5.0 MMOL/L (3.5-5.1) Chloride Level 99 MMOL/L (98-107) Carbon Dioxide Level 24 MMOL/L (21-32) Anion Gap 20 mmol/L (5-15) H Blood Urea Nitrogen 97 mg/dL (7-18) H Creatinine 12.2 MG/DL (0.55-1.30) H Estimat Glomerular Filtration Rate 4.2 mL/min (>60) Glucose Level 363 MG/DL (74-106) #H Calcium Level 10.5 MG/DL (8.5-10.1) H Phosphorus Level 6.7 MG/DL (2.5-4.9) H Magnesium Level 3.2 MG/DL (1.8-2.4) H Total Bilirubin 0.4 MG/DL (0.2-1.0) Aspartate Amino Transf (AST/SGOT) 16 U/L (15-37) Alanine Aminotransferase (ALT/SGPT) 20 U/L (12-78) Alkaline Phosphatase 131 U/L (46-116) H C-Reactive Protein, Quantitative 13.8 mg/dL (0.00-0.90) H Total Protein 10.6 G/DL (6.4-8.2) H Albumin 3.3 G/DL (3.4-5.0) L Globulin 7.3 g/dL Albumin/Globulin Ratio 0.5 (1.0-2.7) L Plan Problems: (1) Suspected COVID-19 virus infection (2) HTN (hypertension) (3) CASSANDRA (acute kidney injury) Assessment & Plan: Needs urgent HD needs access patient okay and consented see note will follow with recs new line placed discussed with team and nephrology HD line functional when checked has TPA now please use appropriately Cathflo used again this flow during dialysis on 430 was low. Will monitor may need line change 5/4 plan for HD as per renal may need to take fluid off with HD edema anasarca dressings saturated and changed will monitor cont with HD (4) Anemia in chronic kidney disease (CKD) (5) Anemia (6) Renal failure (7) Suspected COVID-19 virus infection Assessment & Plan: Pt deconditioned and despite all skin preventions Pt noted to have developed several pressure injuries. . Stable dry eschar noted to clefts of R and L ears. No erythema noted . DTPI noted to L trochanter. Base of injury is maroon in colour with marginal erythema along borders. Partially opened DTPI Sacrum, R and L Buttocks. Base of wound is maroon with two small open wounds L sacrum and L buttocks. Pt has an APM/MOMO Mattress overlay and is being positioned with pillows as per tolerance and within protocols. worsening despite medical efforts will cont to provide therapy Tx.Plan: Apply Cavilon Skin Barrier to both ears Daily and prn. Apply Moisture Barrier Paste to Sacrum,R and L Buttocks. Cover with Optifoam drsgs. Change every 3 days and PRN. Apply Cavilon Skin Barrier to R and L trochanter. Cover each site with Optifoam drsgs.Change every 7 days and PRN. Apply Cavilon Skin Barrier to both heels. Cover each heel with Optifoam drsg. Change every 7 days and prn. Off-load heels with pillow. Reposition at least every 2hours or as tolerated. APM/MOMO Mattress overlay. (8) COVID-19 Assessment & Plan: COVID + c diff negative febrile leukocytosis renal insufficiency see above cont resp care Rx as per ID worsening on vent support now cxr noted on pressors prognosis guarded repeat covid ++ weaning vent and pressors off slowly showing improvement slowly recovering will need trach as unable to wean vent safely [facility] [place]. [facility] obtained s/p trach pending peg Yaniv Mast July 11, 2019 12:51
[2019-07-11] MEDS: Haloperidol Lactate 5 MG in D5W 55 ML IVPB PRN (15:12)
--- NOTE | 2019-07-11 16:34 | General Progress Note ---
Assessment/Plan Problem List: (1) HTN (hypertension) ICD Codes: I10 - Essential (primary) hypertension SNOMED: 40884741 (2) CASSANDRA (acute kidney injury) ICD Codes: N17.9 - Acute kidney failure, unspecified SNOMED: 2625947, 85823234 (3) Anemia in chronic kidney disease (CKD) ICD Codes: N18.9 - Chronic kidney disease, unspecified; D63.1 - Anemia in chronic kidney disease SNOMED: 400591364 (4) Renal failure ICD Codes: N19 - Unspecified kidney failure SNOMED: 08867640 (5) Respiratory failure requiring intubation ICD Codes: J96.90 - Respiratory failure, unspecified, unspecified whether with hypoxia or hypercapnia; A41.89 - Other specified sepsis SNOMED: 826964154, 910161736 (6) Pneumonia due to COVID-19 virus ICD Codes: U07.1 - COVID-19; J12.89 - Other viral pneumonia SNOMED: 940134306, 696464944 (7) Sepsis due to severe acute respiratory syndrome coronavirus 2 (SARS-CoV-2) ICD Codes: U07.1 - COVID-19; A41.89 - Other specified sepsis SNOMED: 327252014, 201168626 Status: progressing, unchanged Assessment/Plan: persistent leukocytosis s/p trach peg per dr deleon prn pressors still getting diaylsis covid positive pna resp failure malnutrition supportive therapy afebrile Subjective ROS Limited/Unobtainable: Yes Allergies: Coded Allergies: No Known Allergies (Unverified , 05/28/19) Objective Last 24 Hour Vital Signs Date Time Temp Pulse Resp B/P (MAP) Pulse Ox O2 Delivery O2 Flow Rate FiO2 07/11/19 15:00 113 22 106/62 (77) 100 07/11/19 14:53 109 26 100 Mechanical Ventilator 30 109 26 30 07/11/19 14:30 112 25 111/65 (80) 100 07/11/19 14:00 111 25 104/65 (78) 100 07/11/19 13:30 110 27 103/61 (75) 100 07/11/19 13:00 105 6 99/65 (76) 100 07/11/19 12:30 109 0 80/51 (61) 100 07/11/19 12:00 Mechanical Ventilator 07/11/19 12:00 99 07/11/19 12:00 30 07/11/19 12:00 98.6 116 24 117/64 (81) 100 07/11/19 11:30 115 7 109/69 (82) 100 07/11/19 11:00 15 101/57 Mechanical Ventilator 30 07/11/19 11:00 101/57 07/11/19 11:00 117 2 100 07/11/19 11:00 117 2 101/57 (72) 100 07/11/19 10:45 122 13 118/79 (92) 99 07/11/19 10:30 121 18 115/79 (91) 100 07/11/19 10:28 123 28 100 Mechanical Ventilator 30 123 31 30 07/11/19 10:15 124 25 137/68 (91) 100 07/11/19 10:00 122 23 134/70 (91) 100 07/11/19 10:00 23 134/70 Mechanical Ventilator 30 07/11/19 10:00 134/70 07/11/19 09:45 127/85 07/11/19 09:45 126 21 127/85 (99) 100 07/11/19 09:30 122 30 130/81 (97) 100 07/11/19 09:30 130/71 07/11/19 09:30 127 31 130/71 (90) 100 07/11/19 09:15 148/88 07/11/19 09:00 26 148/88 Mechanical Ventilator 30 07/11/19 09:00 130/81 07/11/19 09:00 122 30 130/81 (97) 100 07/11/19 08:51 110 31 07/11/19 08:50 100 07/11/19 08:30 96 0 91/60 (70) 100 07/11/19 08:00 106 07/11/19 08:00 18 91/64 Mechanical Ventilator 30 07/11/19 08:00 91/64 07/11/19 08:00 98.2 105 8 112/67 (82) 100 07/11/19 08:00 30 07/11/19 08:00 Mechanical Ventilator 07/11/19 07:30 110 17 126/66 (86) 100 07/11/19 07:04 109 26 100 Mechanical Ventilator 30 111 26 30 07/11/19 07:00 111 26 126/79 (95) 100 07/11/19 07:00 26 116/79 Mechanical Ventilator 30 07/11/19 07:00 116/79 07/11/19 06:30 111 26 07/11/19 06:30 111 26 98/68 (78) 100 07/11/19 06:15 114 14 118/76 (90) 100 07/11/19 06:00 26 119/82 Mechanical Ventilator 30 07/11/19 06:00 119/82 07/11/19 06:00 111 26 119/82 (94) 100 07/11/19 05:45 108 19 119/81 (94) 100 07/11/19 05:30 109 17 113/74 (87) 100 07/11/19 05:15 115 18 121/81 (94) 100 07/11/19 05:00 115 22 121/86 (98) 100 07/11/19 05:00 22 121/86 Mechanical Ventilator 30 07/11/19 05:00 121/86 07/11/19 04:45 114 13 127/77 (94) 100 07/11/19 04:30 109 25 131/75 (93) 100 07/11/19 04:15 95 25 107/67 (80) 100 07/11/19 04:00 98.9 94 26 87/57 (67) 100 07/11/19 04:00 26 87/57 Mechanical Ventilator 30 07/11/19 04:00 87/57 07/11/19 04:00 30 07/11/19 04:00 Mechanical Ventilator 07/11/19 03:47 96 27 86/58 (67) 100 07/11/19 03:30 99 26 92/56 (68) 100 07/11/19 03:08 105 26 117/67 (84) 100 07/11/19 03:07 106 26 100 Mechanical Ventilator 30 101 26 30 07/11/19 03:02 104 07/11/19 03:00 103 26 87/56 (66) 100 07/11/19 03:00 26 87/56 Mechanical Ventilator 30 07/11/19 03:00 87/56 07/11/19 02:45 108 26 88/57 (67) 100 07/11/19 02:30 113 15 123/77 (92) 100 07/11/19 02:15 119 21 117/66 (83) 100 07/11/19 02:00 27 132/74 Mechanical Ventilator 30 07/11/19 02:00 132/74 07/11/19 02:00 127 27 132/74 (93) 100 07/11/19 01:45 127 31 132/76 (94) 100 07/11/19 01:30 125 27 129/80 (96) 100 07/11/19 01:15 127 32 132/78 (96) 100 07/11/19 01:00 129 31 135/76 (95) 100 07/11/19 01:00 31 135/76 Mechanical Ventilator 30 07/11/19 01:00 135/76 07/11/19 00:45 127 31 127/86 (100) 100 07/11/19 00:34 101.0 07/11/19 00:30 126 36 135/77 (96) 100 07/11/19 00:15 121 29 121/78 (92) 100 07/11/19 00:00 Mechanical Ventilator 07/11/19 00:00 22 99/60 Mechanical Ventilator 30 07/11/19 00:00 99/60 07/11/19 00:00 101.0 126 22 99/60 (73) 100 07/11/19 00:00 30 07/11/19 00:00 126 07/10/19 23:45 128 32 130/81 (97) 100 07/10/19 23:35 26 128/82 Mechanical Ventilator 30 07/10/19 23:30 119 27 114/67 (83) 100 07/10/19 23:15 130 33 134/70 (91) 100 07/10/19 23:14 121 29 100 Mechanical Ventilator 30 121 31 30 07/10/19 23:00 124 34 128/103 (111) 100 07/10/19 23:00 34 128/103 Mechanical Ventilator 30 07/10/19 23:00 128/103 07/10/19 22:45 121 28 142/77 (98) 100 07/10/19 22:30 110 30 135/77 (96) 100 07/10/19 22:15 95 30 120/72 (88) 100 07/10/19 22:00 31 137/74 Mechanical Ventilator 30 07/10/19 22:00 137/74 07/10/19 22:00 94 31 137/74 (95) 100 5/30/20 21:45 87 21 92/56 (68) 100 07/10/19 21:30 92 27 93/56 (68) 100 07/10/19 21:19 26 91/59 Mechanical Ventilator 30 07/10/19 21:00 26 83/50 Mechanical Ventilator 30 07/10/19 21:00 83/50 07/10/19 21:00 86 26 83/50 (61) 100 20 20:45 93 26 93/59 (70) 100 07/10/19 20:30 92 26 83/51 (62) 100 07/10/19 20:28 96 26 81/53 (62) 100 07/10/19 20:21 101 26 73/46 (55) 100 07/10/19 20:20 83/51 07/10/19 20:18 104 26 76/49 (58) 100 07/10/19 20:15 103 26 73/43 (53) 100 07/10/19 20:15 80/49 07/10/19 20:12 103 26 72/48 (56) 100 07/10/19 20:00 Mechanical Ventilator 07/10/19 20:00 27 80/49 Mechanical Ventilator 30 07/10/19 20:00 98.9 106 27 80/49 (59) 100 07/10/19 20:00 30 07/10/19 19:49 102 24 98/58 (71) 100 07/10/19 19:47 102 27 68/49 (55) 100 07/10/19 19:45 102 26 71/50 (57) 100 07/10/19 19:38 104 26 75/49 (58) 100 07/10/19 19:30 26 69/53 Mechanical Ventilator 30 07/10/19 19:30 107 26 69/53 (58) 100 07/10/19 19:21 107 26 100 Mechanical Ventilator 30 111 26 30 07/10/19 19:15 107 07/10/19 19:15 114 26 95/58 (70) 100 07/10/19 19:06 107 27 72/52 (59) 100 07/10/19 19:00 24 71/48 Mechanical Ventilator 30 07/10/19 19:00 108 24 71/48 (56) 100 07/10/19 18:30 113 27 86/48 (61) 100 07/10/19 18:15 26 86/48 Mechanical Ventilator 30 5/30/20 18:00 113 26 87/64 (72) 100 07/10/19 18:00 25 108/77 Mechanical Ventilator 30 07/10/19 17:30 112 26 86/53 (64) 07/10/19 17:15 26 86/53 Mechanical Ventilator 30 07/10/19 17:00 26 77/44 Mechanical Ventilator 30 07/10/19 17:00 112 26 77/44 (55) 100 07/10/19 16:45 26 75/48 Mechanical Ventilator 30 Intake and Output 07/10/19 07/11/19 19:00 07:00 Intake Total 650.22 ml 591.76 ml Output Total 0 ml 0 ml Balance 650.22 ml 591.76 ml Free Water 90 ml IV Total 140.22 ml 141.76 ml Tube Feeding 420 ml 280 ml Other 170 ml Output Urine Total 0 ml 0 ml # Bowel Movements 2 4 Laboratory Tests 07/11/19 05:30: White Blood Count 18.5H, Red Blood Count 3.72L, Hemoglobin 10.7L, Hematocrit 34.3L, Mean Corpuscular Volume 92, Mean Corpuscular Hemoglobin 28.9, Mean Corpuscular Hemoglobin Concent 31.3L, Red Cell Distribution Width 16.4H, Platelet Count 447, Mean Platelet Volume 6.0L, Neutrophils (%) (Auto) , Lymphocytes (%) (Auto) , Monocytes (%) (Auto) , Eosinophils (%) (Auto) , Basophils (%) (Auto) , Differential Total Cells Counted 100, Neutrophils % ( Manual) 72, Lymphocytes % (Manual) 16L, Monocytes % (Manual) 9, Eosinophils % ( Manual) 3, Basophils % (Manual) 0, Band Neutrophils 0, Platelet Estimate Adequate, Platelet Morphology Normal, Polychromasia 1+, Hypochromasia 1+, Anisocytosis 1+, Sodium Level 143, Potassium Level 5.0, Chloride Level 99, Carbon Dioxide Level 24, Anion Gap 20H, Blood Urea Nitrogen 97H, Creatinine 12.2H, Estimat Glomerular Filtration Rate 4.2, Glucose Level 363#H, Calcium Level 10.5H, Phosphorus Level 6.7H, Magnesium Level 3.2H, Total Bilirubin 0.4, Aspartate Amino Transf (AST/SGOT) 16, Alanine Aminotransferase (ALT/SGPT) 20, Alkaline Phosphatase 131H, C-Reactive Protein, Quantitative 13.8H, Total Protein 10.6H, Albumin 3.3L, Globulin 7.3, Albumin/Globulin Ratio 0.5L Height (Feet): 6 Height (Inches): 1.00 Weight (Pounds): 144 Karishma Mulligan MD July 11, 2019 16:34
[2019-07-11] MEDS: Meropenem 500 MG in NS 55 ML IVPB SCH (17:21)
[2019-07-11] MEDS ORDERED: NS 275ml ONE (18:11)
--- NOTE | 2019-07-11 20:24 | Pulmonolgy Critical Care Note ---
Critical Care - Asmt/Plan Assessment/Plan: Pulmonary CCM Progress Note HPI: Patient is a 68 year old man, jail resident, admitted c/o shortness of breath, cough, noted to have Covid 19 Pneumonia, Respiratory Failure S/p intubation, CXR improving infiltrates ETT adjusted Septic Shock, pressors off Preserved EF FIO2 40%-50%, P5, adequate O2 sats, remains on ACVC, s/p Tracheostomy, CXR stable, for PEG PRN pressors Anemic ID following See earlier Past Medical History: COPD, CKD, Hypertension, Anemia Allergies: No Known Allergies Improving Pulmonary Status on HD Physical Exam Vital Signs Noted Sedated on ventilator WDWN, no distress HEENT: NCAT,moist mm Chest: Occasional rhonchi Heart: HS1, HS2, RRR Abdomen: SNTND, no masses Extremities: Well perfused, no edema TEXT[employer] ENG[employer]VER: No focal signs, no seizures, sedated Impression: COVID-19 virus infection Pneumonia Respiratory failure on ventilator, wean as tolerated CKD - on HD Hypotension on pressors previously Cardiomegaly Lymphopenia Elevated AST COPD Chronic Kidney Disease - HD H/o Hypertension Worsening anemia Plan: Tolerated Tracheostomy Antibiotics per ID HD Pressors PRN ACVC - wean as tolerated [employer]IING [employer]CTOR Medications 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 Monitor cultures/viral studies PPX Hemodialysis per Renal Psychiatry following [facility] - [facility] requested for when available, [facility] - not available as yet Laboratory Tests Noted: CXR: Hypoventilatory exam, interstitial changes, cardiomegaly, improving infiltrates Subjective ROS Limited/Unobtainable: No Constitutional: Denies: fever Respiratory: Reports: dry cough, shortness of breath Gastrointestinal/Abdominal: Reports: diarrhea, other - colace was stopped Psychiatric: Reports: other - refuses labs Allergies: Coded Allergies: No Known Allergies (Unverified , 05/28/19) All Systems: reviewed and negative except above Labs noted Critical Care - Objective Last 24 Hour Vital Signs Date Time Temp Pulse Resp B/P (MAP) Pulse Ox O2 Delivery O2 Flow Rate FiO2 07/11/19 19:30 105 27 100 Mechanical Ventilator 30 106 27 30 07/11/19 19:00 20 93/59 Mechanical Ventilator 30 07/11/19 19:00 93/59 07/11/19 18:00 20 82/53 Mechanical Ventilator 30 07/11/19 18:00 82/53 07/11/19 18:00 98 0 82/53 (63) 100 07/11/19 17:30 107 0 98/61 (73) 100 07/11/19 17:30 98/61 07/11/19 17:15 85/50 07/11/19 17:00 20 79/46 Mechanical Ventilator 30 07/11/19 17:00 79/46 07/11/19 17:00 104 0 79/46 (57) 100 07/11/19 16:45 102/52 07/11/19 16:30 111 25 109/66 (80) 100 07/11/19 16:30 109/66 07/11/19 16:15 67/49 07/11/19 16:00 99.3 113 22 91/56 (68) 100 07/11/19 16:00 19 65/48 Mechanical Ventilator 07/11/19 16:00 65/48 07/11/19 16:00 106 07/11/19 16:00 Mechanical Ventilator 07/11/19 16:00 113 22 91/56 (68) 100 07/11/19 16:00 30 07/11/19 15:30 108 22 102/52 (69) 100 07/11/19 15:00 113 22 106/62 (77) 100 07/11/19 15:00 25 89/57 Mechanical Ventilator 07/11/19 15:00 106/62 07/11/19 14:53 109 26 100 Mechanical Ventilator 30 109 26 30 07/11/19 14:30 112 25 111/65 (80) 100 07/11/19 14:00 25 104/65 Mechanical Ventilator 07/11/19 14:00 104/65 07/11/19 14:00 111 25 104/65 (78) 100 07/11/19 13:30 110 27 103/61 (75) 100 07/11/19 13:00 105 6 99/65 (76) 100 07/11/19 13:00 20 99/65 Mechanical Ventilator 07/11/19 13:00 99/65 07/11/19 12:45 18 74/53 Mechanical Ventilator 07/11/19 12:30 18 80/51 Mechanical Ventilator 30 07/11/19 12:30 109 0 80/51 (61) 100 07/11/19 12:15 16 76/52 Mechanical Ventilator 30 5/31/20 12:00 Mechanical Ventilator 07/11/19 12:00 99 07/11/19 12:00 30 07/11/19 12:00 98.6 116 24 117/64 (81) 100 07/11/19 12:00 16 117/64 Mechanical Ventilator 30 07/11/19 12:00 117/64 07/11/19 11:30 115 7 109/69 (82) 100 07/11/19 11:00 15 101/57 Mechanical Ventilator 30 07/11/19 11:00 101/57 07/11/19 11:00 117 2 100 07/11/19 11:00 117 2 101/57 (72) 100 07/11/19 10:45 122 13 118/79 (92) 99 07/11/19 10:30 121 18 115/79 (91) 100 07/11/19 10:28 123 28 100 Mechanical Ventilator 30 123 31 30 07/11/19 10:15 124 25 137/68 (91) 100 07/11/19 10:00 122 23 134/70 (91) 100 07/11/19 10:00 23 134/70 Mechanical Ventilator 30 07/11/19 10:00 134/70 07/11/19 09:45 127/85 07/11/19 09:45 126 21 127/85 (99) 100 07/11/19 09:30 122 30 130/81 (97) 100 07/11/19 09:30 130/71 07/11/19 09:30 127 31 130/71 (90) 100 07/11/19 09:15 148/88 07/11/19 09:00 26 148/88 Mechanical Ventilator 30 07/11/19 09:00 130/81 07/11/19 09:00 122 30 130/81 (97) 100 07/11/19 08:51 110 31 07/11/19 08:50 100 07/11/19 08:30 96 0 91/60 (70) 100 07/11/19 08:00 106 07/11/19 08:00 18 91/64 Mechanical Ventilator 30 07/11/19 08:00 91/64 07/11/19 08:00 98.2 105 8 112/67 (82) 100 07/11/19 08:00 30 07/11/19 08:00 Mechanical Ventilator 07/11/19 07:30 110 17 126/66 (86) 100 07/11/19 07:04 109 26 100 Mechanical Ventilator 30 111 26 30 07/11/19 07:00 111 26 126/79 (95) 100 07/11/19 07:00 26 116/79 Mechanical Ventilator 30 07/11/19 07:00 116/79 07/11/19 06:30 111 26 07/11/19 06:30 111 26 98/68 (78) 100 07/11/19 06:15 114 14 118/76 (90) 100 07/11/19 06:00 26 119/82 Mechanical Ventilator 30 07/11/19 06:00 119/82 07/11/19 06:00 111 26 119/82 (94) 100 07/11/19 05:45 108 19 119/81 (94) 100 07/11/19 05:30 109 17 113/74 (87) 100 07/11/19 05:15 115 18 121/81 (94) 100 07/11/19 05:00 115 22 121/86 (98) 100 07/11/19 05:00 22 121/86 Mechanical Ventilator 30 07/11/19 05:00 121/86 07/11/19 04:45 114 13 127/77 (94) 100 07/11/19 04:30 109 25 131/75 (93) 100 07/11/19 04:15 95 25 107/67 (80) 100 07/11/19 04:00 98.9 94 26 87/57 (67) 100 07/11/19 04:00 26 87/57 Mechanical Ventilator 30 07/11/19 04:00 87/57 07/11/19 04:00 30 07/11/19 04:00 Mechanical Ventilator 07/11/19 03:47 96 27 86/58 (67) 100 07/11/19 03:30 99 26 92/56 (68) 100 07/11/19 03:08 105 26 117/67 (84) 100 07/11/19 03:07 106 26 100 Mechanical Ventilator 30 101 26 30 07/11/19 03:02 104 07/11/19 03:00 103 26 87/56 (66) 100 07/11/19 03:00 26 87/56 Mechanical Ventilator 30 07/11/19 03:00 87/56 07/11/19 02:45 108 26 88/57 (67) 100 07/11/19 02:30 113 15 123/77 (92) 100 07/11/19 02:15 119 21 117/66 (83) 100 07/11/19 02:00 27 132/74 Mechanical Ventilator 30 07/11/19 02:00 132/74 07/11/19 02:00 127 27 132/74 (93) 100 07/11/19 01:45 127 31 132/76 (94) 100 07/11/19 01:30 125 27 129/80 (96) 100 07/11/19 01:15 127 32 132/78 (96) 100 07/11/19 01:00 129 31 135/76 (95) 100 07/11/19 01:00 31 135/76 Mechanical Ventilator 30 07/11/19 01:00 135/76 07/11/19 00:45 127 31 127/86 (100) 100 07/11/19 00:34 101.0 07/11/19 00:30 126 36 135/77 (96) 100 07/11/19 00:15 121 29 121/78 (92) 100 07/11/19 00:00 Mechanical Ventilator 07/11/19 00:00 22 99/60 Mechanical Ventilator 30 07/11/19 00:00 99/60 07/11/19 00:00 101.0 126 22 99/60 (73) 100 07/11/19 00:00 30 07/11/19 00:00 126 07/10/19 23:45 128 32 130/81 (97) 100 07/10/19 23:35 26 128/82 Mechanical Ventilator 30 07/10/19 23:30 119 27 114/67 (83) 100 07/10/19 23:15 130 33 134/70 (91) 100 07/10/19 23:14 121 29 100 Mechanical Ventilator 30 121 31 30 07/10/19 23:00 124 34 128/103 (111) 100 07/10/19 23:00 34 128/103 Mechanical Ventilator 30 07/10/19 23:00 128/103 07/10/19 22:45 121 28 142/77 (98) 100 07/10/19 22:30 110 30 135/77 (96) 100 07/10/19 22:15 95 30 120/72 (88) 100 07/10/19 22:00 31 137/74 Mechanical Ventilator 30 07/10/19 22:00 137/74 07/10/19 22:00 94 31 137/74 (95) 100 07/10/19 21:45 87 21 92/56 (68) 100 07/10/19 21:30 92 27 93/56 (68) 100 07/10/19 21:19 26 91/59 Mechanical Ventilator 30 07/10/19 21:00 26 83/50 Mechanical Ventilator 30 07/10/19 21:00 83/50 07/10/19 21:00 86 26 83/50 (61) 100 07/10/19 20:45 93 26 93/59 (70) 100 07/10/19 20:30 92 26 83/51 (62) 100 07/10/19 20:28 96 26 81/53 (62) 100 Accucheck: 230 Critical Care - Subjective ROS Limited/Unobtainable: No FI02: 30 Vent Support Breath Rate: 26 Vent Support Mode: AC Vent Tidal Volume: 500 Sputum Amount: Small PEEP: 5.0 PIP: 24 Tube Feeding Amount: 35 I&O: Intake and Output 07/10/19 07/11/19 19:00 07:00 Intake Total 650.22 ml 591.76 ml Output Total 0 ml 0 ml Balance 650.22 ml 591.76 ml Free Water 90 ml IV Total 140.22 ml 141.76 ml Tube Feeding 420 ml 280 ml Other 170 ml Output Urine Total 0 ml 0 ml # Bowel Movements 2 4 ET-Tube: 7.5 ET Position: 24 Arturo Mckeon MD July 11, 2019 20:24
[2019-07-11] MEDS: Dyna-Hex 2% Top Sol 2oz TOPIC SCH (22:18)
[2019-07-11] MEDS: D5W IV SCH ×3 (23:00)
[2019-07-11] MEDS: NOREPINEPHRINE BITARTRATE IV SCH ×3 (23:00)
[2019-07-12] VITALS (61 sets, daily range): BP systolic 85–155; BP diastolic 53–128
[2019-07-12] MEDS: NovoLOG Insulin Flexpen SUBQ SCH ×4 (00:40→18:29)
[2019-07-12] MEDS: Acetaminophen 650mg/20.3ml NG PRN ×3 (00:46→14:24)
[2019-07-12] MEDS: NOREPINEPHRINE BITARTRATE IV SCH ×3 (01:18)
[2019-07-12] MEDS: D5W IV SCH ×3 (01:18)
[2019-07-12] MEDS: LORazepam Inj 2mg/ml 1ml IV PRN (01:48)
[2019-07-12] MEDS: Albuterol 90mcg Inhaler 8gm INH SCH ×6 (03:56→23:09)
[2019-07-12] MEDS: Renvela 800mg Pkt NG SCH ×3 (05:08→21:32)
[2019-07-12] MEDS: fentaNYL 2500mcg/NS 250ml IV SCH (06:00)
[2019-07-12 06:34] LABS: BASOPHILS % (AUTO) 0.8 % (0.0-2.0); EOSINOPHILS % (AUTO) 1.3 % (0.0-3.0); HEMATOCRIT 30.7 % (42.0-52.0); HEMOGLOBIN 9.8 G/DL (14.2-18.0); LYMPHOCYTES % (AUTO) 13.4 % (20.0-45.0); MEAN CORPUSCULAR VOLUME 91 FL (80-99); MONOCYTES % (AUTO) 7.8 % (1.0-10.0); NEUTROPHILS % (AUTO) 76.6 % (45.0-75.0); PLATELET COUNT 466 K/UL (150-450); RED BLOOD COUNT 3.38 M/UL (4.70-6.10); WHITE BLOOD COUNT 17.5 K/UL (4.8-10.8)
[2019-07-12 07:26] LABS: ALANINE AMINOTRANSFERASE 12 U/L (12-78); ALKALINE PHOSPHATASE 124 U/L (46-116); ASPARTATE AMINO TRANSFERASE 27 U/L (15-37); BILIRUBIN,DIRECT 0.2 MG/DL (0.0-0.3); BILIRUBIN,TOTAL 0.5 MG/DL (0.2-1.0); PHOSPHORUS 4.9 MG/DL (2.5-4.9)
[2019-07-12 07:27] LABS: ANION GAP 19 mmol/L (5-15); BLOOD UREA NITROGEN 117 mg/dL (7-18); CALCIUM 9.8 MG/DL (8.5-10.1); CARBON DIOXIDE 25 MMOL/L (21-32); CHLORIDE 99 MMOL/L (98-107); CREATININE 13.8 MG/DL (0.55-1.30); POTASSIUM 4.9 MMOL/L (3.5-5.1); SODIUM 143 MMOL/L (136-145)
[2019-07-12] MEDS: Midodrine 10mg tab NG SCH ×3 (08:04→17:26)
[2019-07-12] MEDS: Enoxaparin 30mg Inj SUBQ SCH (08:04)
[2019-07-12] MEDS: Pantoprazole Inj IVP SCH (08:04)
--- NOTE | 2019-07-12 08:59 | Nephrology Progress Note ---
Assessment/Plan Problem List: (1) CASSANDRA (acute kidney injury) (2) Anemia in chronic kidney disease (CKD) (3) HTN (hypertension) (4) COVID-19 Assessment Acute renal failure most likely superimposed on chronic kidney disease Suspected COVID-19 virus infection Possible Pneumonia, lymphopenia, elevated AST Cardiomegaly, possible CHF COPD Hypertension Anemia, most likely related to chronic kidney disease Plan July 11: Plan for dialysis today. Discussed with RN. Data reviewed. July 10: Plan for dialysis tomorrow July 11. Waiting for consent to proceed with PEG. Continue per consultants. Medication reviewed. Labs reviewed. Discussed with RN. July 09: Dialyzed yesterday. Labs reviewed. Medication reviewed. Next hemodialysis July 11. July 08: Patient has tracheostomy now. Connected to ventilator. Due for dialysis today. Continue per consultants. Discussed with SHANIQUE Romero. July 07: Patient is due for tracheostomy today. Patient was last dialyzed July 05. Will order dialysis for tomorrow. July 06: Patient is intubated on ventilator however the plan is to extubate today. Patient was dialysis yesterday July 05. The dialysis time was cut short due to patient's respiratory distress. Only 1 L was removed during dialysis yesterday. Today's lab reviewed. Continue per consultants. Will arrange for dialysis as needed. July 05: Patient due for dialysis today. Remains intubated. Will schedule permacath placement in a.m. blood cultures on July 04 are negative. July 04: Patient was dialyzed yesterday. Due for dialysis tomorrow. Continues to be intubated. After tomorrow's dialysis will order a permacath. July 03: Dialysis is about to be started now Continues to be intubated Will plan to remove the femoral dialysis catheter and exchanged for a new temporary catheter per ID recommendation We will check surveillance blood culture tomorrow July 02: Patient was dialyzed yesterday and due for dialysis tomorrow Stable from renal standpoint W on dialysis Continue per consultants, weaning....... etc. July 01: Dialysis today Other status unchanged June 30: Due for dialysis tomorrow Remains intubated on ventilator Labs and medication reviewed Discussed with RN Stable from renal standpoint of view June 29: Dialyzed yesterday Due for dialysis tomorrow Stable from renal standpoint to view Keeps failing weaning process June 28: Patient due for dialysis today Stable from renal standpoint to view Continue per consultants June 27: Labs reviewed Due due for dialysis June 28 Discussed with SHANIQUE Dick Continue per consultants Remains intubated on ventilator June 26 Labs reviewed Dialyzed yesterday Started on weaning today Continue to monitor renal parameters June 16: On dialysis now Potassium supplement implemented Continue per consultants Next dialysis June 27June 15: Status unchanged Dialyzed yesterday will dialyze again tomorrow Potassium supplements given Discussed with RN June 14: Due dialysis today Status: Remains intubated on ventilator June 22: Status unchanged Dialyzed yesterday and duefordialysistomorrow Serum sodium stable today June 21 Remains intubated on ventilator Due dialysis today Emphasized high sodium bath for dialysis June 20: Remains intubated on ventilator Dialyzed June 19 next dialysis June 21 Serum sodium 128, will give 250 cc 3% saline Remains full code Discussed with RN Iron panel ordered June 19: Discussed with RN. Patient due for dialysis today. Continue pulmonary support. Remains full code. June 18: Patient dialyzed yesterday June 17 Serum sodium improved but still low Arrange for dialysis tomorrow June 19 Continue per consultants June 8: Due for dialysis today Today's lab reviewed, low serum sodium noted, Emphasized on high sodium bath to dialysis nurse Discussed with SHANIQUE Yuen June 16: Dialyzed yesterday Remains intubated Labs reviewed, serum sodium 131 Plan to dialyze tomorrow June 17 with high sodium bath Discussed with SHANIQUE Yuen June 6: Due for dialysis today Labs reviewed Discussed with RN Transfuse 1 unit of packed RBCs today for low hemoglobin of 7.1 June 5: Blood pressure well maintained Receive dialysis June 13 next hemodialysis June 15June 4: Discussed with RN in ICU Patient did not receive proper dialysis yesterday due to dialysis catheter malfunction Catheter to be adjusted today and dialyzed to be resumed today Continue per consultants Positive for COVID 28 June 2: Patient now intubated on mechanical ventilation Discussed with SHANIQUE Yuen, today June 12 Patient received dialysis yesterday June 10 next hemodialysis June 12 Blood pressure better maintained Today's labs reviewed Continue per consultants Previously patient received dialysis last evening June 05, next dialysis June 07 which was incomplete due to patient's hypotension Will start on midodrine for blood pressure support. Meanwhile continue other pressors as needed Previously Patient is doing poorly, septic, white blood cells are rising, Hypotension somewhat improved We will keep n.p.o. , NG tube for medications, and change medication to IV as needed Patient remains full code Monitor vancomycin level Previously: Patient pulled out his femoral catheter yesterday June 03 which was reinserted by Dr. Mast Patient scheduled for dialysis again June 04, which again was not done due to dialysis nurse citing catheter malfunction Meanwhile continue management per ID, pulmonary , and psych. Meanwhile white blood cell count is rising. Patient blood pressure borderline low. Will check ABG Previously May 31 : I believe patient need dialysis treatment He however needs to competency assessment if can make decisions or not I will communicate with Dr. Mulligan Previously: Per pulmonary and ID advice Adjust blood pressure medication Renal diet Anemia work-up 2D echocardiogram refused Kidney ultrasound refused Jules catheter Urine studies Per orders Subjective ROS Limited/Unobtainable: Yes Objective Objective Last 24 Hour Vital Signs Date Time Temp Pulse Resp B/P (MAP) Pulse Ox O2 Delivery O2 Flow Rate FiO2 07/12/19 07:03 99.5 07/12/19 07:00 30 122/73 Mechanical Ventilator 30 07/12/19 07:00 122/73 07/12/19 07:00 99.5 120 9 117/78 (91) 100 07/12/19 06:30 117 9 108/63 (78) 100 07/12/19 06:30 117 26 07/12/19 06:15 113 18 108/63 (78) 100 07/12/19 06:00 30 108/63 Mechanical Ventilator 30 07/12/19 06:00 108/63 07/12/19 06:00 113 0 86/58 (67) 100 07/12/19 05:57 114 0 103/60 (74) 100 07/12/19 05:45 116 17 129/66 (87) 100 07/12/19 05:30 101.5 117 11 109/63 (78) 100 07/12/19 05:15 112 26 113/69 (84) 100 07/12/19 05:00 113 30 114/71 (85) 100 07/12/19 05:00 27 113/69 Mechanical Ventilator 30 07/12/19 05:00 113/69 07/12/19 04:45 112 32 115/64 (81) 100 07/12/19 04:30 114 30 123/66 (85) 100 07/12/19 04:15 115 27 112/61 (78) 100 07/12/19 04:00 118 25 136/71 (92) 98 07/12/19 04:00 30 07/12/19 04:00 28 136/71 Mechanical Ventilator 30 07/12/19 04:00 136/71 07/12/19 04:00 Mechanical Ventilator 07/12/19 04:00 113 07/12/19 03:45 111 29 101/59 (73) 100 07/12/19 03:30 112 30 116/65 (82) 100 07/12/19 03:30 112 29 100 Mechanical Ventilator 30 114 28 30 07/12/19 03:00 33 92/59 Mechanical Ventilator 30 07/12/19 03:00 92/59 07/12/19 03:00 119 31 92/59 (70) 100 07/12/19 02:45 120 27 104/61 (75) 100 07/12/19 02:30 122 31 100/69 (79) 100 07/12/19 02:15 121 34 91/55 (67) 100 07/12/19 02:00 32 91/55 Mechanical Ventilator 30 07/12/19 02:00 124/75 07/12/19 02:00 121 28 89/58 (68) 100 07/12/19 01:45 127 38 124/75 (91) 100 07/12/19 01:30 125 31 133/70 (91) 100 07/12/19 01:18 104/80 07/12/19 01:15 127 33 107/53 (71) 100 07/12/19 01:00 34 107/53 Mechanical Ventilator 30 07/12/19 01:00 107/53 07/12/19 01:00 124 28 104/69 (81) 100 07/12/19 00:45 119 34 144/89 (107) 100 07/12/19 00:30 118 32 155/128 (137) 100 07/12/19 00:15 117 33 148/74 (98) 100 07/12/19 00:00 114 30 131/72 (91) 100 07/12/19 00:00 33 148/74 Mechanical Ventilator 30 07/12/19 00:00 148/74 07/12/19 00:00 111 07/12/19 00:00 Mechanical Ventilator 07/11/19 23:45 115 33 138/79 (98) 100 5/31/20 23:30 113 29 100 Mechanical Ventilator 30 115 30 30 07/11/19 23:30 117 33 145/80 (101) 100 07/11/19 23:15 112 21 136/86 (103) 100 07/11/19 23:00 30 144/77 Mechanical Ventilator 30 07/11/19 23:00 144/77 07/11/19 23:00 144/77 07/11/19 23:00 114 33 144/77 (99) 100 07/11/19 22:30 110 27 135/79 (97) 100 07/11/19 22:00 29 137/67 Mechanical Ventilator 30 07/11/19 22:00 137/67 07/11/19 22:00 113 31 137/67 (90) 100 07/11/19 21:30 104 30 139/73 (95) 100 07/11/19 21:00 97 26 98/59 (72) 100 07/11/19 21:00 30 98/59 Mechanical Ventilator 30 07/11/19 21:00 98/59 07/11/19 20:30 108 13 130/69 (89) 100 07/11/19 20:00 110 07/11/19 20:00 30 99/60 Mechanical Ventilator 30 07/11/19 20:00 99/60 07/11/19 20:00 Mechanical Ventilator 07/11/19 20:00 104 28 123/61 (81) 100 07/11/19 20:00 30 07/11/19 19:30 105 27 100 Mechanical Ventilator 30 106 27 30 07/11/19 19:30 101 26 128/69 (88) 100 07/11/19 19:00 20 93/59 Mechanical Ventilator 30 07/11/19 19:00 93/59 07/11/19 19:00 99.0 104 15 93/59 (70) 100 07/11/19 18:30 105 17 114/65 (81) 100 07/11/19 18:00 20 82/53 Mechanical Ventilator 30 07/11/19 18:00 82/53 07/11/19 18:00 98 0 82/53 (63) 100 07/11/19 17:30 107 0 98/61 (73) 100 07/11/19 17:30 98/61 07/11/19 17:15 85/50 07/11/19 17:00 20 79/46 Mechanical Ventilator 30 07/11/19 17:00 79/46 07/11/19 17:00 104 0 79/46 (57) 100 07/11/19 16:45 102/52 07/11/19 16:30 111 25 109/66 (80) 100 07/11/19 16:30 109/66 07/11/19 16:15 67/49 07/11/19 16:00 99.3 113 22 91/56 (68) 100 07/11/19 16:00 19 65/48 Mechanical Ventilator 30 07/11/19 16:00 65/48 07/11/19 16:00 106 07/11/19 16:00 Mechanical Ventilator 07/11/19 16:00 113 22 91/56 (68) 100 07/11/19 16:00 30 07/11/19 15:30 108 22 102/52 (69) 100 07/11/19 15:00 113 22 106/62 (77) 100 07/11/19 15:00 25 89/57 Mechanical Ventilator 07/11/19 15:00 106/62 07/11/19 14:53 109 26 100 Mechanical Ventilator 30 109 26 30 07/11/19 14:30 112 25 111/65 (80) 100 07/11/19 14:00 25 104/65 Mechanical Ventilator 07/11/19 14:00 104/65 07/11/19 14:00 111 25 104/65 (78) 100 07/11/19 13:30 110 27 103/61 (75) 100 07/11/19 13:00 105 6 99/65 (76) 100 07/11/19 13:00 20 99/65 Mechanical Ventilator 07/11/19 13:00 99/65 07/11/19 12:45 18 74/53 Mechanical Ventilator 07/11/19 12:30 18 80/51 Mechanical Ventilator 07/11/19 12:30 109 0 80/51 (61) 100 07/11/19 12:15 16 76/52 Mechanical Ventilator 07/11/19 12:00 Mechanical Ventilator 07/11/19 12:00 99 07/11/19 12:00 30 07/11/19 12:00 98.6 116 24 117/64 (81) 100 07/11/19 12:00 16 117/64 Mechanical Ventilator 30 07/11/19 12:00 117/64 07/11/19 11:30 115 7 109/69 (82) 100 07/11/19 11:00 15 101/57 Mechanical Ventilator 30 07/11/19 11:00 101/57 07/11/19 11:00 117 2 100 07/11/19 11:00 117 2 101/57 (72) 100 07/11/19 10:45 122 13 118/79 (92) 99 07/11/19 10:30 121 18 115/79 (91) 100 07/11/19 10:28 123 28 100 Mechanical Ventilator 30 123 31 30 07/11/19 10:15 124 25 137/68 (91) 100 07/11/19 10:00 122 23 134/70 (91) 100 07/11/19 10:00 23 134/70 Mechanical Ventilator 30 07/11/19 10:00 134/70 07/11/19 09:45 127/85 07/11/19 09:45 126 21 127/85 (99) 100 07/11/19 09:30 122 30 130/81 (97) 100 07/11/19 09:30 130/71 07/11/19 09:30 127 31 130/71 (90) 100 07/11/19 09:15 148/88 07/11/19 09:00 26 148/88 Mechanical Ventilator 30 07/11/19 09:00 130/81 07/11/19 09:00 122 30 130/81 (97) 100 Intake and Output 07/11/19 07/12/19 19:00 07:00 Intake Total 867.285 ml 756.58 ml Output Total 0 ml 0 ml Balance 867.285 ml 756.58 ml Free Water 150 ml 200 ml IV Total 297.285 ml 136.58 ml Tube Feeding 420 ml 420 ml Output Urine Total 0 ml 0 ml # Bowel Movements 1 Laboratory Tests 07/12/19 05:30: White Blood Count 17.5H, Red Blood Count 3.38L, Hemoglobin 9.8L, Hematocrit 30.7L, Mean Corpuscular Volume 91, Mean Corpuscular Hemoglobin 29.1, Mean Corpuscular Hemoglobin Concent 32.0, Red Cell Distribution Width 16.0H, Platelet Count 466H, Mean Platelet Volume 6.3L, Neutrophils (%) (Auto) 76.6H, Lymphocytes (%) (Auto) 13.4L, Monocytes (%) (Auto) 7.8, Eosinophils (%) (Auto) 1.3, Basophils (%) (Auto) 0.8, Sodium Level 143, Potassium Level 4.9, Chloride Level 99, Carbon Dioxide Level 25, Anion Gap 19H, Blood Urea Nitrogen 117H, Creatinine 13.8H, Estimat Glomerular Filtration Rate 3.6, Glucose Level 293H, Calcium Level 9.8, Phosphorus Level 4.9, Magnesium Level 3.3H, Total Bilirubin 0.5, Direct Bilirubin 0.2, Aspartate Amino Transf (AST/SGOT) 27, Alanine Aminotransferase (ALT/SGPT) 12, Alkaline Phosphatase 124H, Total Protein 9.8H, Albumin 3.0L, Random Vancomycin Level 28.0 Height (Feet): 6 Height (Inches): 1.00 Weight (Pounds): 147 EENT: other - Trach and vent Cardiovascular: tachycardia Respiratory/Chest: decreased breath sounds Abdomen: distended Objective No change Mic Cole MD Jul 12, 2019 08:59
[2019-07-12] MEDS: Haloperidol Lactate 5 MG in D5W 55 ML IVPB PRN (09:35)
[2019-07-12] MEDS ORDERED: NS 275ml ONE ×2 (09:42→17:15)
[2019-07-12] MEDS ORDERED: D5NS 1000ml IV ONE (09:42)
[2019-07-12] MEDS ORDERED: Tubing IV Secondary IV ONE ×2 (09:42→17:15)
--- NOTE | 2019-07-12 10:34 | Infectious Diseases Prog Note ---
Assessment/Plan Assessment/Plan IMPRESSION: 1. COVID19 pneumonia Positive: 05/27, 05/31 , 06/05, 06/09 ,06/17, 06/19, 06/23, 06/27, 07/03 2. MRSA carrier. 3. Chronic kidney disease , end-stage renal disease. 4. COPD. 5. Hypertension. 6. Anemia. 7. Hypothyroidism. 8. Hyperlipidemia. 9. Major depression. 10. Leukocytosis 11. Hypotension 12. Hepatitis C 13. Hyperuricemia 14. Diarrhea 15. septic shock 16. Leukocytosis 17. Bacteremia with Staph epidermidis Subsequent cultures negative RECOMMENDATIONS: Consider PermCath placement Continue Vancomycin & Meropenem Finished hydroxychloroquine. Will f/u COVID19 test Case was D/W RN Subjective ROS Limited/Unobtainable: Yes Constitutional: Reports: fever, other - Wm=868.5 Cardiovascular: Reports: other - on low dose Levophed 2 jermaine Neurologic: Reports: confusion, other - on restraint Allergies: Coded Allergies: No Known Allergies (Unverified , 05/28/19) Objective Vital Signs Last 24 Hour Vital Signs Date Time Temp Pulse Resp B/P (MAP) Pulse Ox O2 Delivery O2 Flow Rate FiO2 07/12/19 07:05 119 34 99 Mechanical Ventilator 30 119 34 30 07/12/19 07:03 99.5 07/12/19 07:00 30 122/73 Mechanical Ventilator 30 07/12/19 07:00 122/73 07/12/19 07:00 99.5 120 9 117/78 (91) 100 07/12/19 06:30 117 9 108/63 (78) 100 07/12/19 06:30 117 26 07/12/19 06:15 113 18 108/63 (78) 100 07/12/19 06:00 30 108/63 Mechanical Ventilator 30 07/12/19 06:00 108/63 07/12/19 06:00 113 0 86/58 (67) 100 07/12/19 05:57 114 0 103/60 (74) 100 07/12/19 05:45 116 17 129/66 (87) 100 07/12/19 05:30 101.5 117 11 109/63 (78) 100 07/12/19 05:15 112 26 113/69 (84) 100 07/12/19 05:00 113 30 114/71 (85) 100 07/12/19 05:00 27 113/69 Mechanical Ventilator 30 07/12/19 05:00 113/69 07/12/19 04:45 112 32 115/64 (81) 100 07/12/19 04:30 114 30 123/66 (85) 100 07/12/19 04:15 115 27 112/61 (78) 100 07/12/19 04:00 118 25 136/71 (92) 98 07/12/19 04:00 30 07/12/19 04:00 28 136/71 Mechanical Ventilator 30 07/12/19 04:00 136/71 07/12/19 04:00 Mechanical Ventilator 07/12/19 04:00 113 07/12/19 03:45 111 29 101/59 (73) 100 07/12/19 03:30 112 30 116/65 (82) 100 07/12/19 03:30 112 29 100 Mechanical Ventilator 30 114 28 30 07/12/19 03:00 33 92/59 Mechanical Ventilator 30 07/12/19 03:00 92/59 07/12/19 03:00 119 31 92/59 (70) 100 07/12/19 02:45 120 27 104/61 (75) 100 07/12/19 02:30 122 31 100/69 (79) 100 07/12/19 02:15 121 34 91/55 (67) 100 07/12/19 02:00 32 91/55 Mechanical Ventilator 30 07/12/19 02:00 124/75 07/12/19 02:00 121 28 89/58 (68) 100 07/12/19 01:45 127 38 124/75 (91) 100 07/12/19 01:30 125 31 133/70 (91) 100 07/12/19 01:18 104/80 07/12/19 01:15 127 33 107/53 (71) 100 07/12/19 01:00 34 107/53 Mechanical Ventilator 30 07/12/19 01:00 107/53 07/12/19 01:00 124 28 104/69 (81) 100 07/12/19 00:45 119 34 144/89 (107) 100 07/12/19 00:30 118 32 155/128 (137) 100 07/12/19 00:15 117 33 148/74 (98) 100 07/12/19 00:00 114 30 131/72 (91) 100 07/12/19 00:00 33 148/74 Mechanical Ventilator 30 07/12/19 00:00 148/74 07/12/19 00:00 111 07/12/19 00:00 Mechanical Ventilator 07/11/19 23:45 115 33 138/79 (98) 100 07/11/19 23:30 113 29 100 Mechanical Ventilator 30 115 30 30 07/11/19 23:30 117 33 145/80 (101) 100 07/11/19 23:15 112 21 136/86 (103) 100 07/11/19 23:00 30 144/77 Mechanical Ventilator 30 07/11/19 23:00 144/77 07/11/19 23:00 144/77 07/11/19 23:00 114 33 144/77 (99) 100 07/11/19 22:30 110 27 135/79 (97) 100 07/11/19 22:00 29 137/67 Mechanical Ventilator 30 07/11/19 22:00 137/67 07/11/19 22:00 113 31 137/67 (90) 100 07/11/19 21:30 104 30 139/73 (95) 100 07/11/19 21:00 97 26 98/59 (72) 100 07/11/19 21:00 30 98/59 Mechanical Ventilator 30 07/11/19 21:00 98/59 07/11/19 20:30 108 13 130/69 (89) 100 07/11/19 20:00 110 07/11/19 20:00 30 99/60 Mechanical Ventilator 30 07/11/19 20:00 99/60 07/11/19 20:00 Mechanical Ventilator 07/11/19 20:00 104 28 123/61 (81) 100 07/11/19 20:00 30 07/11/19 19:30 105 27 100 Mechanical Ventilator 30 106 27 30 07/11/19 19:30 101 26 128/69 (88) 100 07/11/19 19:00 20 93/59 Mechanical Ventilator 30 07/11/19 19:00 93/59 07/11/19 19:00 99.0 104 15 93/59 (70) 100 07/11/19 18:30 105 17 114/65 (81) 100 07/11/19 18:00 20 82/53 Mechanical Ventilator 30 07/11/19 18:00 82/53 07/11/19 18:00 98 0 82/53 (63) 100 07/11/19 17:30 107 0 98/61 (73) 100 07/11/19 17:30 98/61 07/11/19 17:15 85/50 07/11/19 17:00 20 79/46 Mechanical Ventilator 30 07/11/19 17:00 79/46 07/11/19 17:00 104 0 79/46 (57) 100 07/11/19 16:45 102/52 07/11/19 16:30 111 25 109/66 (80) 100 07/11/19 16:30 109/66 07/11/19 16:15 67/49 07/11/19 16:00 99.3 113 22 91/56 (68) 100 07/11/19 16:00 19 65/48 Mechanical Ventilator 07/11/19 16:00 65/48 07/11/19 16:00 106 07/11/19 16:00 Mechanical Ventilator 07/11/19 16:00 113 22 91/56 (68) 100 07/11/19 16:00 30 07/11/19 15:30 108 22 102/52 (69) 100 07/11/19 15:00 113 22 106/62 (77) 100 07/11/19 15:00 25 89/57 Mechanical Ventilator 07/11/19 15:00 106/62 07/11/19 14:53 109 26 100 Mechanical Ventilator 30 109 26 30 07/11/19 14:30 112 25 111/65 (80) 100 07/11/19 14:00 25 104/65 Mechanical Ventilator 07/11/19 14:00 104/65 07/11/19 14:00 111 25 104/65 (78) 100 07/11/19 13:30 110 27 103/61 (75) 100 07/11/19 13:00 105 6 99/65 (76) 100 07/11/19 13:00 20 99/65 Mechanical Ventilator 07/11/19 13:00 99/65 07/11/19 12:45 18 74/53 Mechanical Ventilator 07/11/19 12:30 18 80/51 Mechanical Ventilator 30 07/11/19 12:30 109 0 80/51 (61) 100 07/11/19 12:15 16 76/52 Mechanical Ventilator 30 07/11/19 12:00 Mechanical Ventilator 07/11/19 12:00 99 07/11/19 12:00 30 07/11/19 12:00 98.6 116 24 117/64 (81) 100 07/11/19 12:00 16 117/64 Mechanical Ventilator 30 07/11/19 12:00 117/64 07/11/19 11:30 115 7 109/69 (82) 100 07/11/19 11:00 15 101/57 Mechanical Ventilator 30 07/11/19 11:00 101/57 07/11/19 11:00 117 2 100 07/11/19 11:00 117 2 101/57 (72) 100 07/11/19 10:45 122 13 118/79 (92) 99 Height (Feet): 6 Height (Inches): 1.00 Weight (Pounds): 147 HEENT: status post trach Respiratory/Chest: other - on ventilator Cardiovascular: tachycardia, other - central & HD line Extremities: no edema Neurologic/Psychiatric: other - sedated Laboratory Tests Test 07/12/19 05:30 White Blood Count 17.5 K/UL (4.8-10.8) H Red Blood Count 3.38 M/UL (4.70-6.10) L Hemoglobin 9.8 G/DL (14.2-18.0) L Hematocrit 30.7 % (42.0-52.0) L Mean Corpuscular Volume 91 FL (80-99) Mean Corpuscular Hemoglobin 29.1 PG (27.0-31.0) Mean Corpuscular Hemoglobin Concent 32.0 G/DL (32.0-36.0) Red Cell Distribution Width 16.0 % (11.6-14.8) H Platelet Count 466 K/UL (150-450) H Mean Platelet Volume 6.3 FL (6.5-10.1) L Neutrophils (%) (Auto) 76.6 % (45.0-75.0) H Lymphocytes (%) (Auto) 13.4 % (20.0-45.0) L Monocytes (%) (Auto) 7.8 % (1.0-10.0) Eosinophils (%) (Auto) 1.3 % (0.0-3.0) Basophils (%) (Auto) 0.8 % (0.0-2.0) Sodium Level 143 MMOL/L (136-145) Potassium Level 4.9 MMOL/L (3.5-5.1) Chloride Level 99 MMOL/L (98-107) Carbon Dioxide Level 25 MMOL/L (21-32) Anion Gap 19 mmol/L (5-15) H Blood Urea Nitrogen 117 mg/dL (7-18) H Creatinine 13.8 MG/DL (0.55-1.30) H Estimat Glomerular Filtration Rate 3.6 mL/min (>60) Glucose Level 293 MG/DL (74-106) H Calcium Level 9.8 MG/DL (8.5-10.1) Phosphorus Level 4.9 MG/DL (2.5-4.9) Magnesium Level 3.3 MG/DL (1.8-2.4) H Total Bilirubin 0.5 MG/DL (0.2-1.0) Direct Bilirubin 0.2 MG/DL (0.0-0.3) Aspartate Amino Transf (AST/SGOT) 27 U/L (15-37) Alanine Aminotransferase (ALT/SGPT) 12 U/L (12-78) Alkaline Phosphatase 124 U/L (46-116) H Total Protein 9.8 G/DL (6.4-8.2) H Albumin 3.0 G/DL (3.4-5.0) L Random Vancomycin Level 28.0 ug/mL Current Medications Medications (Trade) Dose Ordered Sig/Anthony Route PRN Reason Start Time Stop Time Status Last Admin Dose Admin Acetaminophen (Tylenol) 650 mg Q4H PRN NG Temp >100.5 06/13/19 11:00 07/13/19 10:59 07/12/19 05:35 Acetaminophen (Tylenol) 650 mg Q4H PRN NG For Pain 07/11/19 08:00 08/10/19 07:59 Albuterol Sulfate (Proventil MDI) 2 puff Q4HRT INH 06/06/19 23:00 08/30/19 18:59 07/12/19 07:05 Chlorhexidine Gluconate (Michelle-Hex 2%) 1 applic DAILY@1999 TOPIC 06/07/19 20:00 09/05/19 19:59 07/11/19 22:18 Dextrose (Dextrose 50%) 25 ml Q30M PRN IV Hypoglycemia 06/20/19 19:30 09/18/19 19:29 Dextrose (Dextrose 50%) 50 ml Q30M PRN IV Hypoglycemia 06/20/19 19:30 09/18/19 19:29 Dopamine HCl/ Dextrose 250 ml @ 0 mls/hr Q24H PRN IV For hypotension 06/13/19 08:15 09/11/19 08:14 Enoxaparin Sodium (Lovenox) 30 mg DAILY SUBQ 06/07/19 09:00 08/27/19 08:59 07/11/19 08:39 Epoetin Aftab (Epoetin Aftab(ESRD on dialysis)) 10,000 unit SUBQ 06/07/19 21:00 08/31/19 20:59 07/09/19 22:05 Fentanyl Citrate 250 ml @ 0 mls/hr Q24H IV 06/24/19 06:00 09/22/19 05:59 07/10/19 21:19 Haloperidol Lactate 5 mg/ Dextrose 56 ml @ 224 mls/hr Q6H PRN IVPB Agitation 07/11/19 15:00 08/25/19 14:59 07/12/19 09:35 Hydralazine HCl (Apresoline) 10 mg Q4H PRN IV Blood pressure over 160 systol 06/07/19 10:15 09/05/19 10:14 Hydromorphone HCl (Dilaudid) 0.5 mg Q3H PRN IVP For Pain 07/11/19 15:00 07/18/19 14:59 Insulin Aspart (NovoLOG) EVERY 6 HOURS SUBQ 06/21/19 00:00 09/19/19 00:00 07/12/19 05:57 Lorazepam (Ativan 2mg/ml 1ml) 0.5 mg Q4H PRN IV For Anxiety 07/11/19 15:00 07/18/19 14:59 07/12/19 01:48 Meropenem 500 mg/ Sodium Chloride 55 ml @ 110 mls/hr Q24H IVPB 07/09/19 18:00 07/14/19 17:59 07/11/19 17:21 Metoclopramide HCl (Reglan) 5 mg Q8H PRN IVP Nausea & Vomiting 06/18/19 12:00 07/18/19 11:59 06/19/19 00:50 Midodrine (Pro-Amatine) 10 mg THREE TIMES A DAY NG 06/09/19 13:00 09/07/19 12:59 07/12/19 08:04 Norepinephrine Bitartrate 8 mg/ Dextrose 283 ml @ 0 mls/hr Q24H IV 06/23/19 23:00 07/23/19 22:59 07/12/19 01:18 Pantoprazole (Protonix) 40 mg DAILY IVP 06/19/19 09:00 07/19/19 08:59 07/12/19 08:04 Sevelamer Carbonate (Renvela) 2,400 mg Q8HR NG 07/11/19 14:00 09/05/19 12:59 07/12/19 05:08 Vancomycin HCl (Vanco rx to dose) 1 ea DAILY PRN MISC Per rx protocol 07/01/19 11:00 07/31/19 10:59 Ted Leyva MD Jul 12, 2019 10:34
--- NOTE | 2019-07-12 11:18 | Diagnostic Imaging Report ---
Indication: Shortness of breath Technique: One view of the chest Comparison: 07/08/2019 Findings: Patient is rotated to the right. Tracheostomy remains. Left subclavian central venous catheter and nasogastric tube remain. Right midlung hazy infiltrate and ill-defined interstitial disease persists, unchanged. Impression: Unchanged, over 3 days, findings as above.
--- NOTE | 2019-07-12 12:29 | General Progress Note ---
Assessment/Plan Status: progressing, unchanged Assessment/Plan: 1. Diabetes. 2. Hypertension. 3. Coronary artery disease. 4. COPD. 5. Psychiatric disorder with schizophrenia. 6. History of hepatitis C. 7. HLP. 8. Chronic kidney disease, now with acute renal failure. 9. Anemia. 10. Hypothyroidism. 11. Spinal stenosis. 12. Constipation. 13. GERD. 14. COVID positive HD per nephrology fu labs icu care NGTF plan peg for tomorrow Subjective ROS Limited/Unobtainable: No Allergies: Coded Allergies: No Known Allergies (Unverified , 05/28/19) Objective Last 24 Hour Vital Signs Date Time Temp Pulse Resp B/P (MAP) Pulse Ox O2 Delivery O2 Flow Rate FiO2 07/12/19 11:15 100 07/12/19 11:10 105 28 100 Mechanical Ventilator 30 105 28 30 07/12/19 11:00 103 20 106/62 (77) 100 07/12/19 10:30 104 16 98/65 (76) 100 07/12/19 10:00 111 20 89/57 (68) 100 07/12/19 09:30 106 27 127/77 (94) 100 07/12/19 09:00 109 27 105/61 (76) 100 07/12/19 08:30 110 26 112/63 (79) 100 07/12/19 08:00 99.2 112 26 113/62 (79) 99 07/12/19 08:00 Mechanical Ventilator 07/12/19 08:00 30 07/12/19 07:30 119 30 133/76 (95) 100 07/12/19 07:05 119 34 99 Mechanical Ventilator 30 119 34 30 07/12/19 07:03 99.5 07/12/19 07:00 30 122/73 Mechanical Ventilator 30 07/12/19 07:00 122/73 07/12/19 07:00 99.5 120 9 117/78 (91) 100 07/12/19 06:30 117 9 108/63 (78) 100 07/12/19 06:30 117 26 07/12/19 06:15 113 18 108/63 (78) 100 07/12/19 06:00 30 108/63 Mechanical Ventilator 30 07/12/19 06:00 108/63 07/12/19 06:00 113 0 86/58 (67) 100 07/12/19 05:57 114 0 103/60 (74) 100 07/12/19 05:45 116 17 129/66 (87) 100 07/12/19 05:30 101.5 117 11 109/63 (78) 100 07/12/19 05:15 112 26 113/69 (84) 100 07/12/19 05:00 113 30 114/71 (85) 100 07/12/19 05:00 27 113/69 Mechanical Ventilator 30 07/12/19 05:00 113/69 07/12/19 04:45 112 32 115/64 (81) 100 07/12/19 04:30 114 30 123/66 (85) 100 07/12/19 04:15 115 27 112/61 (78) 100 07/12/19 04:00 118 25 136/71 (92) 98 07/12/19 04:00 30 07/12/19 04:00 28 136/71 Mechanical Ventilator 30 07/12/19 04:00 136/71 07/12/19 04:00 Mechanical Ventilator 07/12/19 04:00 113 07/12/19 03:45 111 29 101/59 (73) 100 07/12/19 03:30 112 30 116/65 (82) 100 07/12/19 03:30 112 29 100 Mechanical Ventilator 30 114 28 30 07/12/19 03:00 33 92/59 Mechanical Ventilator 30 07/12/19 03:00 92/59 07/12/19 03:00 119 31 92/59 (70) 100 07/12/19 02:45 120 27 104/61 (75) 100 07/12/19 02:30 122 31 100/69 (79) 100 07/12/19 02:15 121 34 91/55 (67) 100 07/12/19 02:00 32 91/55 Mechanical Ventilator 30 07/12/19 02:00 124/75 07/12/19 02:00 121 28 89/58 (68) 100 07/12/19 01:45 127 38 124/75 (91) 100 07/12/19 01:30 125 31 133/70 (91) 100 07/12/19 01:18 104/80 07/12/19 01:15 127 33 107/53 (71) 100 07/12/19 01:00 34 107/53 Mechanical Ventilator 30 07/12/19 01:00 107/53 07/12/19 01:00 124 28 104/69 (81) 100 07/12/19 00:45 119 34 144/89 (107) 100 07/12/19 00:30 118 32 155/128 (137) 100 07/12/19 00:15 117 33 148/74 (98) 100 07/12/19 00:00 114 30 131/72 (91) 100 07/12/19 00:00 33 148/74 Mechanical Ventilator 30 07/12/19 00:00 148/74 07/12/19 00:00 111 07/12/19 00:00 Mechanical Ventilator 07/11/19 23:45 115 33 138/79 (98) 100 07/11/19 23:30 113 29 100 Mechanical Ventilator 30 115 30 30 07/11/19 23:30 117 33 145/80 (101) 100 07/11/19 23:15 112 21 136/86 (103) 100 07/11/19 23:00 30 144/77 Mechanical Ventilator 30 07/11/19 23:00 144/77 07/11/19 23:00 144/77 07/11/19 23:00 114 33 144/77 (99) 100 07/11/19 22:30 110 27 135/79 (97) 100 07/11/19 22:00 29 137/67 Mechanical Ventilator 30 07/11/19 22:00 137/67 07/11/19 22:00 113 31 137/67 (90) 100 07/11/19 21:30 104 30 139/73 (95) 100 07/11/19 21:00 97 26 98/59 (72) 100 07/11/19 21:00 30 98/59 Mechanical Ventilator 30 07/11/19 21:00 98/59 07/11/19 20:30 108 13 130/69 (89) 100 07/11/19 20:00 110 07/11/19 20:00 30 99/60 Mechanical Ventilator 30 07/11/19 20:00 99/60 07/11/19 20:00 Mechanical Ventilator 07/11/19 20:00 104 28 123/61 (81) 100 07/11/19 20:00 30 07/11/19 19:30 105 27 100 Mechanical Ventilator 30 106 27 30 07/11/19 19:30 101 26 128/69 (88) 100 07/11/19 19:00 20 93/59 Mechanical Ventilator 30 07/11/19 19:00 93/59 07/11/19 19:00 99.0 104 15 93/59 (70) 100 07/11/19 18:30 105 17 114/65 (81) 100 07/11/19 18:00 20 82/53 Mechanical Ventilator 30 07/11/19 18:00 82/53 07/11/19 18:00 98 0 82/53 (63) 100 07/11/19 17:30 107 0 98/61 (73) 100 07/11/19 17:30 98/61 07/11/19 17:15 85/50 07/11/19 17:00 20 79/46 Mechanical Ventilator 30 07/11/19 17:00 79/46 07/11/19 17:00 104 0 79/46 (57) 100 07/11/19 16:45 102/52 07/11/19 16:30 111 25 109/66 (80) 100 07/11/19 16:30 109/66 07/11/19 16:15 67/49 07/11/19 16:00 99.3 113 22 91/56 (68) 100 07/11/19 16:00 19 65/48 Mechanical Ventilator 30 07/11/19 16:00 65/48 07/11/19 16:00 106 07/11/19 16:00 Mechanical Ventilator 07/11/19 16:00 113 22 91/56 (68) 100 07/11/19 16:00 30 07/11/19 15:30 108 22 102/52 (69) 100 07/11/19 15:00 113 22 106/62 (77) 100 07/11/19 15:00 25 89/57 Mechanical Ventilator 30 07/11/19 15:00 106/62 07/11/19 14:53 109 26 100 Mechanical Ventilator 30 109 26 30 07/11/19 14:30 112 25 111/65 (80) 100 07/11/19 14:00 25 104/65 Mechanical Ventilator 30 07/11/19 14:00 104/65 07/11/19 14:00 111 25 104/65 (78) 100 07/11/19 13:30 110 27 103/61 (75) 100 07/11/19 13:00 105 6 99/65 (76) 100 5/31/20 13:00 20 99/65 Mechanical Ventilator 30 07/11/19 13:00 99/65 07/11/19 12:45 18 74/53 Mechanical Ventilator 30 07/11/19 12:30 18 80/51 Mechanical Ventilator 30 07/11/19 12:30 109 0 80/51 (61) 100 Intake and Output 07/11/19 07/12/19 19:00 07:00 Intake Total 867.285 ml 756.58 ml Output Total 0 ml 0 ml Balance 867.285 ml 756.58 ml Free Water 150 ml 200 ml IV Total 297.285 ml 136.58 ml Tube Feeding 420 ml 420 ml Output Urine Total 0 ml 0 ml # Bowel Movements 1 Laboratory Tests 07/12/19 05:30: White Blood Count 17.5H, Red Blood Count 3.38L, Hemoglobin 9.8L, Hematocrit 30.7L, Mean Corpuscular Volume 91, Mean Corpuscular Hemoglobin 29.1, Mean Corpuscular Hemoglobin Concent 32.0, Red Cell Distribution Width 16.0H, Platelet Count 466H, Mean Platelet Volume 6.3L, Neutrophils (%) (Auto) 76.6H, Lymphocytes (%) (Auto) 13.4L, Monocytes (%) (Auto) 7.8, Eosinophils (%) (Auto) 1.3, Basophils (%) (Auto) 0.8, Sodium Level 143, Potassium Level 4.9, Chloride Level 99, Carbon Dioxide Level 25, Anion Gap 19H, Blood Urea Nitrogen 117H, Creatinine 13.8H, Estimat Glomerular Filtration Rate 3.6, Glucose Level 293H, Calcium Level 9.8, Phosphorus Level 4.9, Magnesium Level 3.3H, Total Bilirubin 0.5, Direct Bilirubin 0.2, Aspartate Amino Transf (AST/SGOT) 27, Alanine Aminotransferase (ALT/SGPT) 12, Alkaline Phosphatase 124H, Total Protein 9.8H, Albumin 3.0L, Random Vancomycin Level 28.0 Height (Feet): 6 Height (Inches): 1.00 Weight (Pounds): 147 General Appearance: no apparent distress EENT: normal ENT inspection Neck: supple Cardiovascular: normal rate Respiratory/Chest: decreased breath sounds Abdomen: normal bowel sounds, non tender, soft Extremities: non-tender Marito Ramires MD Jul 12, 2019 12:29
--- NOTE | 2019-07-12 13:15 | Surgery Progress Note ---
Surgery Progress Note Subjective Procedure Performed tracheostomy Additional Comments No acute events. Labs noted. Agitated. Attempted left femoral hemodialysis catheter placement today aborted as first stick was arterial and given patient' s overall condition decided to abort and reconsider placement at a different time. Objective Last 24 Hour Vital Signs Date Time Temp Pulse Resp B/P (MAP) Pulse Ox O2 Delivery O2 Flow Rate FiO2 07/12/19 12:00 30 07/12/19 12:00 Mechanical Ventilator 07/12/19 11:15 100 07/12/19 11:10 105 28 100 Mechanical Ventilator 30 105 28 30 07/12/19 11:00 103 20 106/62 (77) 100 07/12/19 10:30 104 16 98/65 (76) 100 07/12/19 10:00 111 20 89/57 (68) 100 07/12/19 09:30 106 27 127/77 (94) 100 07/12/19 09:00 109 27 105/61 (76) 100 07/12/19 08:30 110 26 112/63 (79) 100 07/12/19 08:00 99.2 112 26 113/62 (79) 99 07/12/19 08:00 Mechanical Ventilator 07/12/19 08:00 30 07/12/19 07:30 119 30 133/76 (95) 100 07/12/19 07:05 119 34 99 Mechanical Ventilator 30 119 34 30 07/12/19 07:03 99.5 07/12/19 07:00 30 122/73 Mechanical Ventilator 30 07/12/19 07:00 122/73 07/12/19 07:00 99.5 120 9 117/78 (91) 100 07/12/19 06:30 117 9 108/63 (78) 100 07/12/19 06:30 117 26 07/12/19 06:15 113 18 108/63 (78) 100 07/12/19 06:00 30 108/63 Mechanical Ventilator 30 07/12/19 06:00 108/63 07/12/19 06:00 113 0 86/58 (67) 100 07/12/19 05:57 114 0 103/60 (74) 100 07/12/19 05:45 116 17 129/66 (87) 100 07/12/19 05:30 101.5 117 11 109/63 (78) 100 07/12/19 05:15 112 26 113/69 (84) 100 07/12/19 05:00 113 30 114/71 (85) 100 07/12/19 05:00 27 113/69 Mechanical Ventilator 30 07/12/19 05:00 113/69 07/12/19 04:45 112 32 115/64 (81) 100 07/12/19 04:30 114 30 123/66 (85) 100 07/12/19 04:15 115 27 112/61 (78) 100 07/12/19 04:00 118 25 136/71 (92) 98 07/12/19 04:00 30 07/12/19 04:00 28 136/71 Mechanical Ventilator 30 07/12/19 04:00 136/71 07/12/19 04:00 Mechanical Ventilator 07/12/19 04:00 113 07/12/19 03:45 111 29 101/59 (73) 100 07/12/19 03:30 112 30 116/65 (82) 100 07/12/19 03:30 112 29 100 Mechanical Ventilator 30 114 28 30 07/12/19 03:00 33 92/59 Mechanical Ventilator 30 07/12/19 03:00 92/59 07/12/19 03:00 119 31 92/59 (70) 100 07/12/19 02:45 120 27 104/61 (75) 100 07/12/19 02:30 122 31 100/69 (79) 100 07/12/19 02:15 121 34 91/55 (67) 100 07/12/19 02:00 32 91/55 Mechanical Ventilator 30 07/12/19 02:00 124/75 07/12/19 02:00 121 28 89/58 (68) 100 07/12/19 01:45 127 38 124/75 (91) 100 07/12/19 01:30 125 31 133/70 (91) 100 07/12/19 01:18 104/80 07/12/19 01:15 127 33 107/53 (71) 100 07/12/19 01:00 34 107/53 Mechanical Ventilator 30 07/12/19 01:00 107/53 07/12/19 01:00 124 28 104/69 (81) 100 07/12/19 00:45 119 34 144/89 (107) 100 07/12/19 00:30 118 32 155/128 (137) 100 07/12/19 00:15 117 33 148/74 (98) 100 07/12/19 00:00 114 30 131/72 (91) 100 07/12/19 00:00 33 148/74 Mechanical Ventilator 30 07/12/19 00:00 148/74 07/12/19 00:00 111 07/12/19 00:00 Mechanical Ventilator 07/11/19 23:45 115 33 138/79 (98) 100 07/11/19 23:30 113 29 100 Mechanical Ventilator 30 115 30 30 07/11/19 23:30 117 33 145/80 (101) 100 07/11/19 23:15 112 21 136/86 (103) 100 07/11/19 23:00 30 144/77 Mechanical Ventilator 30 07/11/19 23:00 144/77 07/11/19 23:00 144/77 07/11/19 23:00 114 33 144/77 (99) 100 07/11/19 22:30 110 27 135/79 (97) 100 07/11/19 22:00 29 137/67 Mechanical Ventilator 30 07/11/19 22:00 137/67 07/11/19 22:00 113 31 137/67 (90) 100 07/11/19 21:30 104 30 139/73 (95) 100 07/11/19 21:00 97 26 98/59 (72) 100 07/11/19 21:00 30 98/59 Mechanical Ventilator 30 07/11/19 21:00 98/59 07/11/19 20:30 108 13 130/69 (89) 100 07/11/19 20:00 110 07/11/19 20:00 30 99/60 Mechanical Ventilator 30 07/11/19 20:00 99/60 07/11/19 20:00 Mechanical Ventilator 07/11/19 20:00 104 28 123/61 (81) 100 07/11/19 20:00 30 07/11/19 19:30 105 27 100 Mechanical Ventilator 30 106 27 30 07/11/19 19:30 101 26 128/69 (88) 100 07/11/19 19:00 20 93/59 Mechanical Ventilator 30 07/11/19 19:00 93/59 07/11/19 19:00 99.0 104 15 93/59 (70) 100 5/31/20 18:30 105 17 114/65 (81) 100 07/11/19 18:00 20 82/53 Mechanical Ventilator 30 07/11/19 18:00 82/53 07/11/19 18:00 98 0 82/53 (63) 100 07/11/19 17:30 107 0 98/61 (73) 100 07/11/19 17:30 98/61 07/11/19 17:15 85/50 07/11/19 17:00 20 79/46 Mechanical Ventilator 30 07/11/19 17:00 79/46 07/11/19 17:00 104 0 79/46 (57) 100 07/11/19 16:45 102/52 07/11/19 16:30 111 25 109/66 (80) 100 07/11/19 16:30 109/66 07/11/19 16:15 67/49 07/11/19 16:00 99.3 113 22 91/56 (68) 100 07/11/19 16:00 19 65/48 Mechanical Ventilator 30 07/11/19 16:00 65/48 07/11/19 16:00 106 07/11/19 16:00 Mechanical Ventilator 07/11/19 16:00 113 22 91/56 (68) 100 07/11/19 16:00 30 07/11/19 15:30 108 22 102/52 (69) 100 07/11/19 15:00 113 22 106/62 (77) 100 07/11/19 15:00 25 89/57 Mechanical Ventilator 30 07/11/19 15:00 106/62 07/11/19 14:53 109 26 100 Mechanical Ventilator 30 109 26 30 07/11/19 14:30 112 25 111/65 (80) 100 07/11/19 14:00 25 104/65 Mechanical Ventilator 30 07/11/19 14:00 104/65 07/11/19 14:00 111 25 104/65 (78) 100 07/11/19 13:30 110 27 103/61 (75) 100 I&O Intake and Output 07/11/19 07/12/19 19:00 07:00 Intake Total 867.285 ml 756.58 ml Output Total 0 ml 0 ml Balance 867.285 ml 756.58 ml Free Water 150 ml 200 ml IV Total 297.285 ml 136.58 ml Tube Feeding 420 ml 420 ml Output Urine Total 0 ml 0 ml # Bowel Movements 1 Dressing: other Wound: other Drains: other Cardiovascular: RSR Respiratory: decreased breath sounds Abdomen: soft, non-tender, present bowel sounds Extremities: no cyanosis, other Laboratory Tests Test 07/12/19 05:30 White Blood Count 17.5 K/UL (4.8-10.8) H Red Blood Count 3.38 M/UL (4.70-6.10) L Hemoglobin 9.8 G/DL (14.2-18.0) L Hematocrit 30.7 % (42.0-52.0) L Mean Corpuscular Volume 91 FL (80-99) Mean Corpuscular Hemoglobin 29.1 PG (27.0-31.0) Mean Corpuscular Hemoglobin Concent 32.0 G/DL (32.0-36.0) Red Cell Distribution Width 16.0 % (11.6-14.8) H Platelet Count 466 K/UL (150-450) H Mean Platelet Volume 6.3 FL (6.5-10.1) L Neutrophils (%) (Auto) 76.6 % (45.0-75.0) H Lymphocytes (%) (Auto) 13.4 % (20.0-45.0) L Monocytes (%) (Auto) 7.8 % (1.0-10.0) Eosinophils (%) (Auto) 1.3 % (0.0-3.0) Basophils (%) (Auto) 0.8 % (0.0-2.0) Sodium Level 143 MMOL/L (136-145) Potassium Level 4.9 MMOL/L (3.5-5.1) Chloride Level 99 MMOL/L (98-107) Carbon Dioxide Level 25 MMOL/L (21-32) Anion Gap 19 mmol/L (5-15) H Blood Urea Nitrogen 117 mg/dL (7-18) H Creatinine 13.8 MG/DL (0.55-1.30) H Estimat Glomerular Filtration Rate 3.6 mL/min (>60) Glucose Level 293 MG/DL (74-106) H Calcium Level 9.8 MG/DL (8.5-10.1) Phosphorus Level 4.9 MG/DL (2.5-4.9) Magnesium Level 3.3 MG/DL (1.8-2.4) H Total Bilirubin 0.5 MG/DL (0.2-1.0) Direct Bilirubin 0.2 MG/DL (0.0-0.3) Aspartate Amino Transf (AST/SGOT) 27 U/L (15-37) Alanine Aminotransferase (ALT/SGPT) 12 U/L (12-78) Alkaline Phosphatase 124 U/L (46-116) H Total Protein 9.8 G/DL (6.4-8.2) H Albumin 3.0 G/DL (3.4-5.0) L Random Vancomycin Level 28.0 ug/mL Plan Problems: (1) Suspected COVID-19 virus infection (2) HTN (hypertension) (3) CASSANDRA (acute kidney injury) Assessment & Plan: Needs urgent HD needs access patient okay and consented see note will follow with recs new line placed discussed with team and nephrology HD line functional when checked has TPA now please use appropriately Cathflo used again this flow during dialysis on 430 was low. Will monitor may need line change 5/4 plan for HD as per renal may need to take fluid off with HD edema anasarca dressings saturated and changed will monitor cont with HD Plan to change dialysis catheter unfortunately left vein not cannulated will likely place IJ soon (4) Anemia in chronic kidney disease (CKD) (5) Anemia (6) Renal failure (7) Suspected COVID-19 virus infection Assessment & Plan: Pt deconditioned and despite all skin preventions Pt noted to have developed several pressure injuries. . Stable dry eschar noted to clefts of R and L ears. No erythema noted . DTPI noted to L trochanter. Base of injury is maroon in colour with marginal erythema along borders. Partially opened DTPI Sacrum, R and L Buttocks. Base of wound is maroon with two small open wounds L sacrum and L buttocks. Pt has an APM/MOMO Mattress overlay and is being positioned with pillows as per tolerance and within protocols. worsening despite medical efforts will cont to provide therapy Tx.Plan: Apply Cavilon Skin Barrier to both ears Daily and prn. Apply Moisture Barrier Paste to Sacrum,R and L Buttocks. Cover with Optifoam drsgs. Change every 3 days and PRN. Apply Cavilon Skin Barrier to R and L trochanter. Cover each site with Optifoam drsgs.Change every 7 days and PRN. Apply Cavilon Skin Barrier to both heels. Cover each heel with Optifoam drsg. Change every 7 days and prn. Off-load heels with pillow. Reposition at least every 2hours or as tolerated. APM/MOMO Mattress overlay. (8) COVID-19 Assessment & Plan: COVID + c diff negative febrile leukocytosis renal insufficiency see above cont resp care Rx as per ID worsening on vent support now cxr noted on pressors prognosis guarded repeat covid ++ weaning vent and pressors off slowly showing improvement slowly recovering will need trach as unable to wean vent safely called and spoke with country conservatorship. consent obtained s/p trach pending peg Yaniv Mast Jul 12, 2019 13:15
--- NOTE | 2019-07-12 13:53 | Cardiac Electrophysiology PN ---
Assessment/Plan Assessment/Plan 1. Elevated troponin. Low level and flat due to renal failure. On Aspirin. EF 60 %. 2. S/P Septic shock. Off Levo 3. ESRD, on HD per Dr. Cole. 4. COVID-19 positive pneumonia. On the Vent with 30% Fio2. S/P Tracheostomy 07/08/19 5. MRSA carrier. 6. COPD. 7. Anemia. 8. Dysphagia, PEG tomorrow DW RN Subjective Subjective Covid positive x 3 in isolation in ICU, on 30% Fio2, PEEP 5. Off pressors on midodrine. S/P Tracheostomy . Planned for PEG tomorrow HD pending today Objective Last 24 Hour Vital Signs Date Time Temp Pulse Resp B/P (MAP) Pulse Ox O2 Delivery O2 Flow Rate FiO2 07/12/19 12:00 30 07/12/19 12:00 Mechanical Ventilator 07/12/19 11:15 100 07/12/19 11:10 105 28 100 Mechanical Ventilator 30 105 28 30 07/12/19 11:00 103 20 106/62 (77) 100 07/12/19 10:30 104 16 98/65 (76) 100 07/12/19 10:00 111 20 89/57 (68) 100 07/12/19 09:30 106 27 127/77 (94) 100 07/12/19 09:00 109 27 105/61 (76) 100 07/12/19 08:30 110 26 112/63 (79) 100 07/12/19 08:00 99.2 112 26 113/62 (79) 99 07/12/19 08:00 Mechanical Ventilator 07/12/19 08:00 30 07/12/19 07:30 119 30 133/76 (95) 100 07/12/19 07:05 119 34 99 Mechanical Ventilator 30 119 34 30 07/12/19 07:03 99.5 07/12/19 07:00 30 122/73 Mechanical Ventilator 30 07/12/19 07:00 122/73 07/12/19 07:00 99.5 120 9 117/78 (91) 100 07/12/19 06:30 117 9 108/63 (78) 100 07/12/19 06:30 117 26 07/12/19 06:15 113 18 108/63 (78) 100 07/12/19 06:00 30 108/63 Mechanical Ventilator 30 07/12/19 06:00 108/63 07/12/19 06:00 113 0 86/58 (67) 100 07/12/19 05:57 114 0 103/60 (74) 100 07/12/19 05:45 116 17 129/66 (87) 100 07/12/19 05:30 101.5 117 11 109/63 (78) 100 07/12/19 05:15 112 26 113/69 (84) 100 07/12/19 05:00 113 30 114/71 (85) 100 07/12/19 05:00 27 113/69 Mechanical Ventilator 30 07/12/19 05:00 113/69 07/12/19 04:45 112 32 115/64 (81) 100 07/12/19 04:30 114 30 123/66 (85) 100 07/12/19 04:15 115 27 112/61 (78) 100 07/12/19 04:00 118 25 136/71 (92) 98 07/12/19 04:00 30 07/12/19 04:00 28 136/71 Mechanical Ventilator 30 07/12/19 04:00 136/71 07/12/19 04:00 Mechanical Ventilator 07/12/19 04:00 113 07/12/19 03:45 111 29 101/59 (73) 100 07/12/19 03:30 112 30 116/65 (82) 100 07/12/19 03:30 112 29 100 Mechanical Ventilator 30 114 28 30 07/12/19 03:00 33 92/59 Mechanical Ventilator 30 07/12/19 03:00 92/59 07/12/19 03:00 119 31 92/59 (70) 100 07/12/19 02:45 120 27 104/61 (75) 100 07/12/19 02:30 122 31 100/69 (79) 100 07/12/19 02:15 121 34 91/55 (67) 100 07/12/19 02:00 32 91/55 Mechanical Ventilator 30 07/12/19 02:00 124/75 07/12/19 02:00 121 28 89/58 (68) 100 07/12/19 01:45 127 38 124/75 (91) 100 07/12/19 01:30 125 31 133/70 (91) 100 07/12/19 01:18 104/80 07/12/19 01:15 127 33 107/53 (71) 100 07/12/19 01:00 34 107/53 Mechanical Ventilator 30 07/12/19 01:00 107/53 07/12/19 01:00 124 28 104/69 (81) 100 07/12/19 00:45 119 34 144/89 (107) 100 07/12/19 00:30 118 32 155/128 (137) 100 07/12/19 00:15 117 33 148/74 (98) 100 07/12/19 00:00 114 30 131/72 (91) 100 07/12/19 00:00 33 148/74 Mechanical Ventilator 30 07/12/19 00:00 148/74 07/12/19 00:00 111 07/12/19 00:00 Mechanical Ventilator 07/11/19 23:45 115 33 138/79 (98) 100 07/11/19 23:30 113 29 100 Mechanical Ventilator 30 115 30 30 07/11/19 23:30 117 33 145/80 (101) 100 07/11/19 23:15 112 21 136/86 (103) 100 07/11/19 23:00 30 144/77 Mechanical Ventilator 30 07/11/19 23:00 144/77 07/11/19 23:00 144/77 07/11/19 23:00 114 33 144/77 (99) 100 07/11/19 22:30 110 27 135/79 (97) 100 07/11/19 22:00 29 137/67 Mechanical Ventilator 30 07/11/19 22:00 137/67 07/11/19 22:00 113 31 137/67 (90) 100 07/11/19 21:30 104 30 139/73 (95) 100 07/11/19 21:00 97 26 98/59 (72) 100 07/11/19 21:00 30 98/59 Mechanical Ventilator 30 07/11/19 21:00 98/59 07/11/19 20:30 108 13 130/69 (89) 100 07/11/19 20:00 110 07/11/19 20:00 30 99/60 Mechanical Ventilator 30 07/11/19 20:00 99/60 07/11/19 20:00 Mechanical Ventilator 07/11/19 20:00 104 28 123/61 (81) 100 07/11/19 20:00 30 07/11/19 19:30 105 27 100 Mechanical Ventilator 30 106 27 30 07/11/19 19:30 101 26 128/69 (88) 100 07/11/19 19:00 20 93/59 Mechanical Ventilator 30 07/11/19 19:00 93/59 07/11/19 19:00 99.0 104 15 93/59 (70) 100 07/11/19 18:30 105 17 114/65 (81) 100 07/11/19 18:00 20 82/53 Mechanical Ventilator 30 07/11/19 18:00 82/53 07/11/19 18:00 98 0 82/53 (63) 100 07/11/19 17:30 107 0 98/61 (73) 100 07/11/19 17:30 98/61 07/11/19 17:15 85/50 07/11/19 17:00 20 79/46 Mechanical Ventilator 30 07/11/19 17:00 79/46 07/11/19 17:00 104 0 79/46 (57) 100 07/11/19 16:45 102/52 07/11/19 16:30 111 25 109/66 (80) 100 07/11/19 16:30 109/66 07/11/19 16:15 67/49 07/11/19 16:00 99.3 113 22 91/56 (68) 100 07/11/19 16:00 19 65/48 Mechanical Ventilator 07/11/19 16:00 65/48 07/11/19 16:00 106 07/11/19 16:00 Mechanical Ventilator 07/11/19 16:00 113 22 91/56 (68) 100 07/11/19 16:00 30 07/11/19 15:30 108 22 102/52 (69) 100 07/11/19 15:00 113 22 106/62 (77) 100 07/11/19 15:00 25 89/57 Mechanical Ventilator 30 07/11/19 15:00 106/62 07/11/19 14:53 109 26 100 Mechanical Ventilator 30 109 26 30 07/11/19 14:30 112 25 111/65 (80) 100 07/11/19 14:00 25 104/65 Mechanical Ventilator 30 07/11/19 14:00 104/65 07/11/19 14:00 111 25 104/65 (78) 100 Intake and Output 07/11/19 07/12/19 19:00 07:00 Intake Total 867.285 ml 756.58 ml Output Total 0 ml 0 ml Balance 867.285 ml 756.58 ml Free Water 150 ml 200 ml IV Total 297.285 ml 136.58 ml Tube Feeding 420 ml 420 ml Output Urine Total 0 ml 0 ml # Bowel Movements 1 Laboratory Tests Test 07/12/19 05:30 White Blood Count 17.5 K/UL (4.8-10.8) H Red Blood Count 3.38 M/UL (4.70-6.10) L Hemoglobin 9.8 G/DL (14.2-18.0) L Hematocrit 30.7 % (42.0-52.0) L Mean Corpuscular Volume 91 FL (80-99) Mean Corpuscular Hemoglobin 29.1 PG (27.0-31.0) Mean Corpuscular Hemoglobin Concent 32.0 G/DL (32.0-36.0) Red Cell Distribution Width 16.0 % (11.6-14.8) H Platelet Count 466 K/UL (150-450) H Mean Platelet Volume 6.3 FL (6.5-10.1) L Neutrophils (%) (Auto) 76.6 % (45.0-75.0) H Lymphocytes (%) (Auto) 13.4 % (20.0-45.0) L Monocytes (%) (Auto) 7.8 % (1.0-10.0) Eosinophils (%) (Auto) 1.3 % (0.0-3.0) Basophils (%) (Auto) 0.8 % (0.0-2.0) Sodium Level 143 MMOL/L (136-145) Potassium Level 4.9 MMOL/L (3.5-5.1) Chloride Level 99 MMOL/L (98-107) Carbon Dioxide Level 25 MMOL/L (21-32) Anion Gap 19 mmol/L (5-15) H Blood Urea Nitrogen 117 mg/dL (7-18) H Creatinine 13.8 MG/DL (0.55-1.30) H Estimat Glomerular Filtration Rate 3.6 mL/min (>60) Glucose Level 293 MG/DL (74-106) H Calcium Level 9.8 MG/DL (8.5-10.1) Phosphorus Level 4.9 MG/DL (2.5-4.9) Magnesium Level 3.3 MG/DL (1.8-2.4) H Total Bilirubin 0.5 MG/DL (0.2-1.0) Direct Bilirubin 0.2 MG/DL (0.0-0.3) Aspartate Amino Transf (AST/SGOT) 27 U/L (15-37) Alanine Aminotransferase (ALT/SGPT) 12 U/L (12-78) Alkaline Phosphatase 124 U/L (46-116) H Total Protein 9.8 G/DL (6.4-8.2) H Albumin 3.0 G/DL (3.4-5.0) L Random Vancomycin Level 28.0 ug/mL Objective HEAD AND NECK: No JVD. Tracheostomy in place LUNGS: Decreased breath sounds. CARDIOVASCULAR: Regular S1 and S2. Tachycardic. ABDOMEN: Soft. EXTREMITIES: No pitting edema. New Left [facility] Gio Engle MD Jul 12, 2019 13:53
[2019-07-12] MEDS: Meropenem 500 MG in NS 55 ML IVPB SCH (17:26)
--- NOTE | 2019-07-12 20:40 | Hematology/Onc Progress Note ---
Assessment/Plan Assessment/Plan Assessment and Recs: # Anemia of chronic disease, likely related ot underlying kidney disease has COIVD19++++++ --> hgb trend 9-->8-->7.3-->7.9-->6.8->9.5-->10->8.3-->7.7-->7.1-->8.9->8.8->7.7 -->8.1 ->7.9-->7.7 -->8.2-->8.1 -->7.9-->8.5 -->9->9.2-->9.5-->10.7 -->9.8 --> transfuse as needed, hgb goal >7 --> no evidence of hemolysis --> peripheral smear has been reviewed --> epogen started 3 x a week ==>> transfuse 06/08, 06/15, # Leukocytosis likely related to suspected COVID-19 virus infection --> completed plaquenil --> trend smear as needed --> wbc trend: 4-->11-->14.5-->21-->26-->21->24--.28-->23-->19-->16.2-->21--> 11.2 -->12.5-->12.3-->12.4-->18.5-->18.5-->17 --> pulm is aware --> on abx cefepime/vanc->zosyn/vanc-->dom/vanc --> pressors as needed --> 06/27 covid 19++ # Thrombocytopenia/Lymphopenia --> likely related to covid19 --> plt 129k-->186k-->251-->285-->384 -->430-->539-->515-->447 --> abx: dom/vanc # Respiratory failure with covid19+ --> s/p vent/trach --> weaning # Possible Pneumonia --> abx completed # Cardiomegaly # Transaminitis with Elevated AST # COPD # Chronic Kidney Disease --> per renal hd --> s/p right femoral cath 07/02 # Hypertension # Dvt ppx lovenox # peg for 07/12/2019 Appreciate consultation and ernesto Rn Subjective Allergies: Coded Allergies: No Known Allergies (Unverified , 05/28/19) All Systems: reviewed and negative except above Subjective 06/01 nv, extremely agitated, not allowing labs draws, no night sweats, cbc ordered 06/02 confused, restraints, on abx and plaquenil, hgb 7.9, nrb 15 L 06/03 is with nonrebreather, but not compliant, remains confused 06/05 no bleeding, labs noted, no major bleeding, otherwise comfortable 06/06 labs reviewed, no bleeding, meds noted, no night sweats, on levo and nonrebreather 06/07 labs noted, no bleeding, meds reviewed, no bleeding, wbc higher 06/08 to get 2 units prbc, no night sweats, meds reviewed 06/09 is on cefepime and vanc, labs noted, ernesto Rn, no bleeding 06/10 no major changes, labs reviewed, wbc 28k, on abx, cefepime 06/12 remains in icu, labs noted, no night sweats or bleeding 06/13 sluggish pupils, remains agitated, per psych, no bleding, on vent, wbc sitll high 06/14 still confused, remains on vent, with ng, running nepro, on pressors 06/15 icu, febrile, non verbal, hgb 7.1, blood pending, completed plaq 06/16 remains in the icu, nonverbal, plan for hd tomorrow, ernesto rn 06/17 in icu, on pressor, nonverbal, on abx, no bleeding 06/19 no bleeding, nonverbal in icu, hgb is 7.7 06/20 on zosyn, tube feeds, vent, labs noted, in icu, nv 06/21 gettng hd as per renal, in icu, nv, no bleeding, tfs 06/22 icu, cxr with slight improvement, cooling blanket, weaning today 06/23 wewaning, in icu, on vent, abx, and pressors as needed, labs noted 06/24 failed weaning, off abx, completed plaquenil, hgb 8.1 06/26 icu, weaning for this am, afebrile, hgb 8 06/27 in icu, remains comotose, weaning started on peep, no night sweats 06/28 weaning today, off abx, restraints, no distress, h/h stable 06/29 covid 19+, failed weaning, no blood transfusion needed 06/30 icu, on vent, labs reviewed, no distress 07/01 in icu, may need trach, remains on hd per renal, labs noted 07/02 s/p right fem cath, failed wean, no new orders, h/h stable 07/03 is somewhat more responsive, on abx, no bleeding, weaning and HD today 07/04 hd as per renal, weaning off vent, no bleeding today 07/05 obtunded, no bleding overnight, with hd for tomorrow noted, vanc 07/08 no events, remains with trach/vent, dw Rn, no bleeding, cbc is noted 07/09 no overnight events, peg for friday pending consent 07/10 off pressors, vent, restraints, labs reviewed 07/11 no acute events is on pressors, intubated, agitated still Objective Objective Current Medications Medications (Trade) Dose Ordered Sig/Anthony Route PRN Reason Start Time Stop Time Status Last Admin Dose Admin Acetaminophen (Tylenol) 650 mg Q4H PRN NG Temp >100.5 06/13/19 11:00 07/13/19 10:59 07/12/19 05:35 Acetaminophen (Tylenol) 650 mg Q4H PRN NG For Pain 07/11/19 08:00 08/10/19 07:59 07/12/19 14:24 Albuterol Sulfate (Proventil MDI) 2 puff Q4HRT INH 06/06/19 23:00 08/30/19 18:59 07/12/19 19:08 Chlorhexidine Gluconate (Michelle-Hex 2%) 1 applic DAILY@1999 TOPIC 06/07/19 20:00 09/05/19 19:59 07/11/19 22:18 Dextrose (Dextrose 50%) 25 ml Q30M PRN IV Hypoglycemia 06/20/19 19:30 09/18/19 19:29 Dextrose (Dextrose 50%) 50 ml Q30M PRN IV Hypoglycemia 06/20/19 19:30 09/18/19 19:29 Dopamine HCl/ Dextrose 250 ml @ 0 mls/hr Q24H PRN IV For hypotension 06/13/19 08:15 09/11/19 08:14 Enoxaparin Sodium (Lovenox) 30 mg DAILY SUBQ 06/07/19 09:00 08/27/19 08:59 07/11/19 08:39 Epoetin Aftab (Epoetin Aftab(ESRD on dialysis)) 10,000 unit FRI- SUBQ 06/07/19 21:00 08/31/19 20:59 07/09/19 22:05 Fentanyl Citrate 250 ml @ 0 mls/hr Q24H IV 06/24/19 06:00 09/22/19 05:59 07/10/19 21:19 Haloperidol Lactate 5 mg/ Dextrose 56 ml @ 224 mls/hr Q6H PRN IVPB Agitation 07/11/19 15:00 08/25/19 14:59 07/12/19 09:35 Hydralazine HCl (Apresoline) 10 mg Q4H PRN IV Blood pressure over 160 systol 06/07/19 10:15 09/05/19 10:14 Hydromorphone HCl (Dilaudid) 0.5 mg Q3H PRN IVP For Pain 07/11/19 15:00 07/18/19 14:59 Insulin Aspart (NovoLOG) EVERY 6 HOURS SUBQ 06/21/19 00:00 09/19/19 00:00 07/12/19 18:29 Lorazepam (Ativan 2mg/ml 1ml) 0.5 mg Q4H PRN IV For Anxiety 07/11/19 15:00 07/18/19 14:59 07/12/19 01:48 Meropenem 500 mg/ Sodium Chloride 55 ml @ 110 mls/hr Q24H IVPB 07/09/19 18:00 07/14/19 17:59 07/12/19 17:26 Metoclopramide HCl (Reglan) 5 mg Q8H PRN IVP Nausea & Vomiting 06/18/19 12:00 07/18/19 11:59 06/19/19 00:50 Midodrine (Pro-Amatine) 10 mg THREE TIMES A DAY NG 06/09/19 13:00 09/07/19 12:59 07/12/19 17:26 Norepinephrine Bitartrate 8 mg/ Dextrose 283 ml @ 0 mls/hr Q24H IV 06/23/19 23:00 07/23/19 22:59 07/12/19 01:18 Pantoprazole (Protonix) 40 mg DAILY IVP 06/19/19 09:00 07/19/19 08:59 07/12/19 08:04 Sevelamer Carbonate (Renvela) 2,400 mg Q8HR NG 07/11/19 14:00 09/05/19 12:59 07/12/19 13:29 Vancomycin HCl (Vanco rx to dose) 1 ea DAILY PRN MISC Per rx protocol 07/01/19 11:00 07/31/19 10:59 Last 24 Hour Vital Signs Date Time Temp Pulse Resp B/P (MAP) Pulse Ox O2 Delivery O2 Flow Rate FiO2 07/12/19 19:08 115 41 99 Mechanical Ventilator 30 114 38 30 07/12/19 18:00 94 31 95/61 (72) 100 07/12/19 18:00 30 120/77 Mechanical Ventilator 30 07/12/19 18:00 120/77 07/12/19 17:30 95 31 114/66 (82) 100 07/12/19 17:00 101 21 101/66 (78) 100 07/12/19 17:00 29 82/58 Mechanical Ventilator 30 07/12/19 17:00 82/58 07/12/19 16:45 101/66 07/12/19 16:30 97 25 102/70 (81) 100 07/12/19 16:30 95/71 07/12/19 16:15 102/70 07/12/19 16:00 30 07/12/19 16:00 98.2 93 22 102/70 (81) 100 07/12/19 16:00 28 100/68 Mechanical Ventilator 30 07/12/19 16:00 100/68 07/12/19 16:00 94 07/12/19 16:00 Mechanical Ventilator 07/12/19 15:30 97 17 89/64 (72) 100 07/12/19 15:05 90 26 100 Mechanical Ventilator 30 90 26 30 07/12/19 15:00 88 3 104/62 (76) 100 07/12/19 15:00 23 111/67 Mechanical Ventilator 30 07/12/19 15:00 111/67 07/12/19 14:30 100 26 95/57 (70) 100 07/12/19 14:00 24 100/63 Mechanical Ventilator 30 07/12/19 14:00 100/63 07/12/19 14:00 107 32 109/76 (87) 100 07/12/19 13:45 109/76 07/12/19 13:30 99 20 108/57 (74) 100 07/12/19 13:30 118/72 07/12/19 13:15 108/57 07/12/19 13:00 20 109/65 Mechanical Ventilator 30 07/12/19 13:00 109/65 07/12/19 13:00 103 13 88/57 (67) 100 07/12/19 12:45 88/57 07/12/19 12:30 94/64 07/12/19 12:30 104 17 98/60 (73) 100 07/12/19 12:15 98/60 07/12/19 12:00 30 07/12/19 12:00 15 82/50 Mechanical Ventilator 30 07/12/19 12:00 82/50 07/12/19 12:00 105 07/12/19 12:00 99.4 107 11 115/54 (74) 100 07/12/19 12:00 Mechanical Ventilator 07/12/19 11:30 103 12 113/76 (88) 100 07/12/19 11:15 100 07/12/19 11:10 105 28 100 Mechanical Ventilator 30 105 28 30 07/12/19 11:00 20 105/72 Mechanical Ventilator 30 07/12/19 11:00 105/72 07/12/19 11:00 103 20 106/62 (77) 100 07/12/19 10:45 106/62 07/12/19 10:30 104 16 98/65 (76) 100 07/12/19 10:30 80/58 07/12/19 10:15 98/65 07/12/19 10:00 111 20 89/57 (68) 100 07/12/19 10:00 20 89/57 Mechanical Ventilator 30 07/12/19 10:00 89/57 07/12/19 09:30 106 27 127/77 (94) 100 07/12/19 09:00 109 27 105/61 (76) 100 07/12/19 09:00 26 111/70 Mechanical Ventilator 30 07/12/19 09:00 111/70 07/12/19 08:30 110 26 112/63 (79) 100 07/12/19 08:00 99.2 112 26 113/62 (79) 99 07/12/19 08:00 Mechanical Ventilator 07/12/19 08:00 30 07/12/19 08:00 24 94/63 Mechanical Ventilator 30 07/12/19 08:00 94/63 07/12/19 08:00 126 07/12/19 07:30 119 30 133/76 (95) 100 07/12/19 07:05 119 34 99 Mechanical Ventilator 30 119 34 30 07/12/19 07:03 99.5 07/12/19 07:00 30 122/73 Mechanical Ventilator 30 07/12/19 07:00 122/73 07/12/19 07:00 99.5 120 9 117/78 (91) 100 07/12/19 06:30 117 9 108/63 (78) 100 07/12/19 06:30 117 26 07/12/19 06:15 113 18 108/63 (78) 100 07/12/19 06:00 30 108/63 Mechanical Ventilator 30 07/12/19 06:00 108/63 07/12/19 06:00 113 0 86/58 (67) 100 07/12/19 05:57 114 0 103/60 (74) 100 07/12/19 05:45 116 17 129/66 (87) 100 07/12/19 05:30 101.5 117 11 109/63 (78) 100 07/12/19 05:15 112 26 113/69 (84) 100 07/12/19 05:00 113 30 114/71 (85) 100 07/12/19 05:00 27 113/69 Mechanical Ventilator 30 07/12/19 05:00 113/69 07/12/19 04:45 112 32 115/64 (81) 100 07/12/19 04:30 114 30 123/66 (85) 100 07/12/19 04:15 115 27 112/61 (78) 100 07/12/19 04:00 118 25 136/71 (92) 98 07/12/19 04:00 30 07/12/19 04:00 28 136/71 Mechanical Ventilator 30 07/12/19 04:00 136/71 07/12/19 04:00 Mechanical Ventilator 07/12/19 04:00 113 07/12/19 03:45 111 29 101/59 (73) 100 07/12/19 03:30 112 30 116/65 (82) 100 07/12/19 03:30 112 29 100 Mechanical Ventilator 30 114 28 30 07/12/19 03:00 33 92/59 Mechanical Ventilator 30 07/12/19 03:00 92/59 07/12/19 03:00 119 31 92/59 (70) 100 07/12/19 02:45 120 27 104/61 (75) 100 07/12/19 02:30 122 31 100/69 (79) 100 07/12/19 02:15 121 34 91/55 (67) 100 07/12/19 02:00 32 91/55 Mechanical Ventilator 30 07/12/19 02:00 124/75 07/12/19 02:00 121 28 89/58 (68) 100 07/12/19 01:45 127 38 124/75 (91) 100 07/12/19 01:30 125 31 133/70 (91) 100 07/12/19 01:18 104/80 07/12/19 01:15 127 33 107/53 (71) 100 07/12/19 01:00 34 107/53 Mechanical Ventilator 30 07/12/19 01:00 107/53 07/12/19 01:00 124 28 104/69 (81) 100 07/12/19 00:45 119 34 144/89 (107) 100 07/12/19 00:30 118 32 155/128 (137) 100 07/12/19 00:15 117 33 148/74 (98) 100 07/12/19 00:00 114 30 131/72 (91) 100 07/12/19 00:00 33 148/74 Mechanical Ventilator 30 07/12/19 00:00 148/74 07/12/19 00:00 111 07/12/19 00:00 Mechanical Ventilator 07/11/19 23:45 115 33 138/79 (98) 100 07/11/19 23:30 113 29 100 Mechanical Ventilator 30 115 30 30 07/11/19 23:30 117 33 145/80 (101) 100 07/11/19 23:15 112 21 136/86 (103) 100 07/11/19 23:00 30 144/77 Mechanical Ventilator 30 07/11/19 23:00 144/77 07/11/19 23:00 144/77 07/11/19 23:00 114 33 144/77 (99) 100 07/11/19 22:30 110 27 135/79 (97) 100 07/11/19 22:00 29 137/67 Mechanical Ventilator 30 07/11/19 22:00 137/67 07/11/19 22:00 113 31 137/67 (90) 100 07/11/19 21:30 104 30 139/73 (95) 100 07/11/19 21:00 97 26 98/59 (72) 100 07/11/19 21:00 30 98/59 Mechanical Ventilator 30 07/11/19 21:00 98/59 07/11/19 20:30 108 13 130/69 (89) 100 07/11/19 20:00 110 07/11/19 20:00 30 99/60 Mechanical Ventilator 30 07/11/19 20:00 99/60 07/11/19 20:00 Mechanical Ventilator 07/11/19 20:00 104 28 123/61 (81) 100 07/11/19 20:00 30 07/11/19 19:30 105 27 100 Mechanical Ventilator 30 106 27 30 07/11/19 19:30 101 26 128/69 (88) 100 07/11/19 19:00 20 93/59 Mechanical Ventilator 30 07/11/19 19:00 93/59 07/11/19 19:00 99.0 104 15 93/59 (70) 100 07/11/19 18:30 105 17 114/65 (81) 100 07/11/19 18:00 20 82/53 Mechanical Ventilator 30 07/11/19 18:00 82/53 07/11/19 18:00 98 0 82/53 (63) 100 07/11/19 17:30 107 0 98/61 (73) 100 07/11/19 17:30 98/61 07/11/19 17:15 85/50 07/11/19 17:00 20 79/46 Mechanical Ventilator 30 07/11/19 17:00 79/46 07/11/19 17:00 104 0 79/46 (57) 100 07/11/19 16:45 102/52 07/11/19 16:30 111 25 109/66 (80) 100 07/11/19 16:30 109/66 07/11/19 16:15 67/49 07/11/19 16:00 99.3 113 22 91/56 (68) 100 07/11/19 16:00 19 65/48 Mechanical Ventilator 30 07/11/19 16:00 65/48 07/11/19 16:00 106 07/11/19 16:00 Mechanical Ventilator 07/11/19 16:00 113 22 91/56 (68) 100 07/11/19 16:00 30 07/11/19 15:30 108 22 102/52 (69) 100 07/11/19 15:00 113 22 106/62 (77) 100 07/11/19 15:00 25 89/57 Mechanical Ventilator 30 07/11/19 15:00 106/62 07/11/19 14:53 109 26 100 Mechanical Ventilator 30 109 26 30 07/11/19 14:30 112 25 111/65 (80) 100 07/11/19 14:00 25 104/65 Mechanical Ventilator 07/11/19 14:00 104/65 07/11/19 14:00 111 25 104/65 (78) 100 07/11/19 13:30 110 27 103/61 (75) 100 07/11/19 13:00 105 6 99/65 (76) 100 07/11/19 13:00 20 99/65 Mechanical Ventilator 07/11/19 13:00 99/65 07/11/19 12:45 18 74/53 Mechanical Ventilator 07/11/19 12:30 18 80/51 Mechanical Ventilator 07/11/19 12:30 109 0 80/51 (61) 100 07/11/19 12:15 16 76/52 Mechanical Ventilator 07/11/19 12:00 Mechanical Ventilator 07/11/19 12:00 99 07/11/19 12:00 30 07/11/19 12:00 98.6 116 24 117/64 (81) 100 07/11/19 12:00 16 117/64 Mechanical Ventilator 07/11/19 12:00 117/64 07/11/19 11:30 115 7 109/69 (82) 100 07/11/19 11:00 15 101/57 Mechanical Ventilator 30 07/11/19 11:00 101/57 07/11/19 11:00 117 2 100 07/11/19 11:00 117 2 101/57 (72) 100 07/11/19 10:45 122 13 118/79 (92) 99 07/11/19 10:30 121 18 115/79 (91) 100 07/11/19 10:28 123 28 100 Mechanical Ventilator 30 123 31 30 07/11/19 10:15 124 25 137/68 (91) 100 07/11/19 10:00 122 23 134/70 (91) 100 07/11/19 10:00 23 134/70 Mechanical Ventilator 30 07/11/19 10:00 134/70 07/11/19 09:45 127/85 07/11/19 09:45 126 21 127/85 (99) 100 07/11/19 09:30 122 30 130/81 (97) 100 07/11/19 09:30 130/71 07/11/19 09:30 127 31 130/71 (90) 100 07/11/19 09:15 148/88 07/11/19 09:00 26 148/88 Mechanical Ventilator 30 07/11/19 09:00 130/81 07/11/19 09:00 122 30 130/81 (97) 100 07/11/19 08:51 110 31 07/11/19 08:50 100 07/11/19 08:30 96 0 91/60 (70) 100 07/11/19 08:00 106 07/11/19 08:00 18 91/64 Mechanical Ventilator 30 07/11/19 08:00 91/64 07/11/19 08:00 98.2 105 8 112/67 (82) 100 07/11/19 08:00 30 07/11/19 08:00 Mechanical Ventilator 07/11/19 07:30 110 17 126/66 (86) 100 07/11/19 07:04 109 26 100 Mechanical Ventilator 30 111 26 30 07/11/19 07:00 111 26 126/79 (95) 100 07/11/19 07:00 26 116/79 Mechanical Ventilator 30 07/11/19 07:00 116/79 07/11/19 06:30 111 26 07/11/19 06:30 111 26 98/68 (78) 100 07/11/19 06:15 114 14 118/76 (90) 100 07/11/19 06:00 26 119/82 Mechanical Ventilator 30 07/11/19 06:00 119/82 07/11/19 06:00 111 26 119/82 (94) 100 07/11/19 05:45 108 19 119/81 (94) 100 07/11/19 05:30 109 17 113/74 (87) 100 07/11/19 05:15 115 18 121/81 (94) 100 07/11/19 05:00 115 22 121/86 (98) 100 07/11/19 05:00 22 121/86 Mechanical Ventilator 30 07/11/19 05:00 121/86 07/11/19 04:45 114 13 127/77 (94) 100 07/11/19 04:30 109 25 131/75 (93) 100 07/11/19 04:15 95 25 107/67 (80) 100 07/11/19 04:00 98.9 94 26 87/57 (67) 100 07/11/19 04:00 26 87/57 Mechanical Ventilator 30 07/11/19 04:00 87/57 07/11/19 04:00 30 07/11/19 04:00 Mechanical Ventilator 07/11/19 03:47 96 27 86/58 (67) 100 07/11/19 03:30 99 26 92/56 (68) 100 07/11/19 03:08 105 26 117/67 (84) 100 07/11/19 03:07 106 26 100 Mechanical Ventilator 30 101 26 30 07/11/19 03:02 104 07/11/19 03:00 103 26 87/56 (66) 100 07/11/19 03:00 26 87/56 Mechanical Ventilator 30 07/11/19 03:00 87/56 07/11/19 02:45 108 26 88/57 (67) 100 07/11/19 02:30 113 15 123/77 (92) 100 07/11/19 02:15 119 21 117/66 (83) 100 07/11/19 02:00 27 132/74 Mechanical Ventilator 30 07/11/19 02:00 132/74 07/11/19 02:00 127 27 132/74 (93) 100 07/11/19 01:45 127 31 132/76 (94) 100 07/11/19 01:30 125 27 129/80 (96) 100 07/11/19 01:15 127 32 132/78 (96) 100 07/11/19 01:00 129 31 135/76 (95) 100 07/11/19 01:00 31 135/76 Mechanical Ventilator 30 07/11/19 01:00 135/76 07/11/19 00:45 127 31 127/86 (100) 100 07/11/19 00:30 126 36 135/77 (96) 100 07/11/19 00:15 121 29 121/78 (92) 100 07/11/19 00:00 Mechanical Ventilator 07/11/19 00:00 22 99/60 Mechanical Ventilator 30 07/11/19 00:00 99/60 07/11/19 00:00 101.0 126 22 99/60 (73) 100 07/11/19 00:00 30 07/11/19 00:00 126 07/10/19 23:45 128 32 130/81 (97) 100 07/10/19 23:35 26 128/82 Mechanical Ventilator 30 07/10/19 23:30 119 27 114/67 (83) 100 07/10/19 23:15 130 33 134/70 (91) 100 07/10/19 23:14 121 29 100 Mechanical Ventilator 30 121 31 30 07/10/19 23:00 124 34 128/103 (111) 100 07/10/19 23:00 34 128/103 Mechanical Ventilator 30 07/10/19 23:00 128/103 07/10/19 22:45 121 28 142/77 (98) 100 07/10/19 22:30 110 30 135/77 (96) 100 07/10/19 22:15 95 30 120/72 (88) 100 07/10/19 22:00 31 137/74 Mechanical Ventilator 30 07/10/19 22:00 137/74 07/10/19 22:00 94 31 137/74 (95) 100 07/10/19 21:45 87 21 92/56 (68) 100 07/10/19 21:30 92 27 93/56 (68) 100 07/10/19 21:19 26 91/59 Mechanical Ventilator 30 07/10/19 21:00 26 83/50 Mechanical Ventilator 30 07/10/19 21:00 83/50 07/10/19 21:00 86 26 83/50 (61) 100 07/10/19 20:45 93 26 93/59 (70) 100 Intake and Output 5/31/20 6/1/20 19:00 07:00 Intake Total 867.285 ml 756.58 ml Output Total 0 ml 0 ml Balance 867.285 ml 756.58 ml Free Water 150 ml 200 ml IV Total 297.285 ml 136.58 ml Tube Feeding 420 ml 420 ml Output Urine Total 0 ml 0 ml # Bowel Movements 1 Labs Test 07/10/19 04:00 07/11/19 05:30 07/12/19 05:30 White Blood Count 18.5 K/UL (4.8-10.8) 18.5 K/UL (4.8-10.8) 17.5 K/UL (4.8-10.8) Red Blood Count 3.34 M/UL (4.70-6.10) 3.72 M/UL (4.70-6.10) 3.38 M/UL (4.70-6.10) Hemoglobin 9.5 G/DL (14.2-18.0) 10.7 G/DL (14.2-18.0) 9.8 G/DL (14.2-18.0) Hematocrit 30.8 % (42.0-52.0) 34.3 % (42.0-52.0) 30.7 % (42.0-52.0) Mean Corpuscular Volume 92 FL (80-99) 92 FL (80-99) 91 FL (80-99) Mean Corpuscular Hemoglobin 28.5 PG (27.0-31.0) 28.9 PG (27.0-31.0) 29.1 PG (27.0-31.0) Mean Corpuscular Hemoglobin Concent 31.0 G/DL (32.0-36.0) 31.3 G/DL (32.0-36.0) 32.0 G/DL (32.0-36.0) Red Cell Distribution Width 16.7 % (11.6-14.8) 16.4 % (11.6-14.8) 16.0 % (11.6-14.8) Platelet Count 407 K/UL (150-450) 447 K/UL (150-450) 466 K/UL (150-450) Mean Platelet Volume 6.1 FL (6.5-10.1) 6.0 FL (6.5-10.1) 6.3 FL (6.5-10.1) Neutrophils (%) (Auto) % (45.0-75.0) % (45.0-75.0) 76.6 % (45.0-75.0) Lymphocytes (%) (Auto) % (20.0-45.0) % (20.0-45.0) 13.4 % (20.0-45.0) Monocytes (%) (Auto) % (1.0-10.0) % (1.0-10.0) 7.8 % (1.0-10.0) Eosinophils (%) (Auto) % (0.0-3.0) % (0.0-3.0) 1.3 % (0.0-3.0) Basophils (%) (Auto) % (0.0-2.0) % (0.0-2.0) 0.8 % (0.0-2.0) Differential Total Cells Counted 100 100 Neutrophils % (Manual) 84 % (45-75) 72 % (45-75) Lymphocytes % (Manual) 9 % (20-45) 16 % (20-45) Monocytes % (Manual) 6 % (1-10) 9 % (1-10) Eosinophils % (Manual) 1 % (0-3) 3 % (0-3) Basophils % (Manual) 0 % (0-2) 0 % (0-2) Band Neutrophils 0 % (0-8) 0 % (0-8) Platelet Estimate Adequate Adequate Platelet Morphology Normal Normal Polychromasia 1+ 1+ Hypochromasia 1+ 1+ Anisocytosis 1+ 1+ Sodium Level 141 MMOL/L (136-145) 143 MMOL/L (136-145) 143 MMOL/L (136-145) Potassium Level 4.2 MMOL/L (3.5-5.1) 5.0 MMOL/L (3.5-5.1) 4.9 MMOL/L (3.5-5.1) Chloride Level 97 MMOL/L (98-107) 99 MMOL/L (98-107) 99 MMOL/L (98-107) Carbon Dioxide Level 25 MMOL/L (21-32) 24 MMOL/L (21-32) 25 MMOL/L (21-32) Anion Gap 19 mmol/L (5-15) 20 mmol/L (5-15) 19 mmol/L (5-15) Blood Urea Nitrogen 73 mg/dL (7-18) 97 mg/dL (7-18) 117 mg/dL (7-18) Creatinine 10.3 MG/DL (0.55-1.30) 12.2 MG/DL (0.55-1.30) 13.8 MG/DL (0.55-1.30) Estimat Glomerular Filtration Rate 5.1 mL/min (>60) 4.2 mL/min (>60) 3.6 mL/min (>60) Glucose Level 223 MG/DL (74-106) 363 MG/DL (74-106) 293 MG/DL (74-106) Calcium Level 9.9 MG/DL (8.5-10.1) 10.5 MG/DL (8.5-10.1) 9.8 MG/DL (8.5-10.1) Random Vancomycin Level 28.7 ug/mL 28.0 ug/mL Phosphorus Level 6.7 MG/DL (2.5-4.9) 4.9 MG/DL (2.5-4.9) Magnesium Level 3.2 MG/DL (1.8-2.4) 3.3 MG/DL (1.8-2.4) Total Bilirubin 0.4 MG/DL (0.2-1.0) 0.5 MG/DL (0.2-1.0) Aspartate Amino Transf (AST/SGOT) 16 U/L (15-37) 27 U/L (15-37) Alanine Aminotransferase (ALT/SGPT) 20 U/L (12-78) 12 U/L (12-78) Alkaline Phosphatase 131 U/L (46-116) 124 U/L (46-116) C-Reactive Protein, Quantitative 13.8 mg/dL (0.00-0.90) Total Protein 10.6 G/DL (6.4-8.2) 9.8 G/DL (6.4-8.2) Albumin 3.3 G/DL (3.4-5.0) 3.0 G/DL (3.4-5.0) Globulin 7.3 g/dL Albumin/Globulin Ratio 0.5 (1.0-2.7) Direct Bilirubin 0.2 MG/DL (0.0-0.3) Height (Feet): 6 Height (Inches): 1.00 Weight (Pounds): 147 Objective Sp02 EP Interpretation: reviewed General: nv, confused, sedated Heent: bilateral eye normal inspection, bilateral eye PERRL ++Ng Respiratory: normal breath sounds, no respiratory distress, intubated/vent +++ trach+++ Cardiovascular: regular rate, rhythm, no edema Gastrointestinal: normal inspection, soft, non-distended Rectal: deferred Musculoskeletal: normal range of motion, non-tender, R fem cath++ Neurologic: alert, motor strength/tone normal, sensory intact, responsive, speech normal Skin: Decubitus/Ulcer - See RN skin exam. : jamaal+ Greg Cabral MD Jul 12, 2019 20:39
[2019-07-12] MEDS: Dyna-Hex 2% Top Sol 2oz TOPIC SCH (21:32)
--- NOTE | 2019-07-12 21:38 | General Progress Note ---
Assessment/Plan Problem List: (1) HTN (hypertension) ICD Codes: I10 - Essential (primary) hypertension SNOMED: 22748411 (2) CASSANDRA (acute kidney injury) ICD Codes: N17.9 - Acute kidney failure, unspecified SNOMED: 5179631, 97843326 (3) Anemia in chronic kidney disease (CKD) ICD Codes: N18.9 - Chronic kidney disease, unspecified; D63.1 - Anemia in chronic kidney disease SNOMED: 377190759 (4) Renal failure ICD Codes: N19 - Unspecified kidney failure SNOMED: 86699417 (5) Respiratory failure requiring intubation ICD Codes: J96.90 - Respiratory failure, unspecified, unspecified whether with hypoxia or hypercapnia; A41.89 - Other specified sepsis SNOMED: 161101979, 968269647 (6) Pneumonia due to COVID-19 virus ICD Codes: U07.1 - COVID-19; J12.89 - Other viral pneumonia SNOMED: 576662293, 536023193 (7) Sepsis due to severe acute respiratory syndrome coronavirus 2 (SARS-CoV-2) ICD Codes: U07.1 - COVID-19; A41.89 - Other specified sepsis SNOMED: 169106433, 539802642 Status: progressing, unchanged Assessment/Plan: persistent leukocytosis s/p trach peg for tomorrow off pressors still getting diaylsis covid positive pna resp failure malnutrition lytes ok Subjective ROS Limited/Unobtainable: Yes Allergies: Coded Allergies: No Known Allergies (Unverified , 05/28/19) Objective Last 24 Hour Vital Signs Date Time Temp Pulse Resp B/P (MAP) Pulse Ox O2 Delivery O2 Flow Rate FiO2 07/12/19 19:08 115 41 99 Mechanical Ventilator 30 114 38 30 07/12/19 18:00 94 31 95/61 (72) 100 07/12/19 18:00 30 120/77 Mechanical Ventilator 30 07/12/19 18:00 120/77 07/12/19 17:30 95 31 114/66 (82) 100 07/12/19 17:00 101 21 101/66 (78) 100 07/12/19 17:00 29 82/58 Mechanical Ventilator 30 07/12/19 17:00 82/58 07/12/19 16:45 101/66 07/12/19 16:30 97 25 102/70 (81) 100 07/12/19 16:30 95/71 07/12/19 16:15 102/70 07/12/19 16:00 30 07/12/19 16:00 98.2 93 22 102/70 (81) 100 07/12/19 16:00 28 100/68 Mechanical Ventilator 30 07/12/19 16:00 100/68 07/12/19 16:00 94 07/12/19 16:00 Mechanical Ventilator 07/12/19 15:30 97 17 89/64 (72) 100 07/12/19 15:05 90 26 100 Mechanical Ventilator 30 90 26 30 07/12/19 15:00 88 3 104/62 (76) 100 07/12/19 15:00 23 111/67 Mechanical Ventilator 30 07/12/19 15:00 111/67 07/12/19 14:30 100 26 95/57 (70) 100 07/12/19 14:00 24 100/63 Mechanical Ventilator 30 07/12/19 14:00 100/63 07/12/19 14:00 107 32 109/76 (87) 100 07/12/19 13:45 109/76 07/12/19 13:30 99 20 108/57 (74) 100 07/12/19 13:30 118/72 07/12/19 13:15 108/57 07/12/19 13:00 20 109/65 Mechanical Ventilator 30 07/12/19 13:00 109/65 07/12/19 13:00 103 13 88/57 (67) 100 07/12/19 12:45 88/57 07/12/19 12:30 94/64 07/12/19 12:30 104 17 98/60 (73) 100 07/12/19 12:15 98/60 07/12/19 12:00 30 07/12/19 12:00 15 82/50 Mechanical Ventilator 30 07/12/19 12:00 82/50 07/12/19 12:00 105 07/12/19 12:00 99.4 107 11 115/54 (74) 100 07/12/19 12:00 Mechanical Ventilator 07/12/19 11:30 103 12 113/76 (88) 100 07/12/19 11:15 100 07/12/19 11:10 105 28 100 Mechanical Ventilator 30 105 28 30 07/12/19 11:00 20 105/72 Mechanical Ventilator 30 07/12/19 11:00 105/72 07/12/19 11:00 103 20 106/62 (77) 100 07/12/19 10:45 106/62 07/12/19 10:30 104 16 98/65 (76) 100 07/12/19 10:30 80/58 07/12/19 10:15 98/65 07/12/19 10:00 111 20 89/57 (68) 100 07/12/19 10:00 20 89/57 Mechanical Ventilator 30 07/12/19 10:00 89/57 07/12/19 09:30 106 27 127/77 (94) 100 07/12/19 09:00 109 27 105/61 (76) 100 07/12/19 09:00 26 111/70 Mechanical Ventilator 30 07/12/19 09:00 111/70 07/12/19 08:30 110 26 112/63 (79) 100 07/12/19 08:00 99.2 112 26 113/62 (79) 99 07/12/19 08:00 Mechanical Ventilator 07/12/19 08:00 30 07/12/19 08:00 24 94/63 Mechanical Ventilator 30 07/12/19 08:00 94/63 07/12/19 08:00 126 07/12/19 07:30 119 30 133/76 (95) 100 07/12/19 07:05 119 34 99 Mechanical Ventilator 30 119 34 30 07/12/19 07:03 99.5 07/12/19 07:00 30 122/73 Mechanical Ventilator 30 07/12/19 07:00 122/73 07/12/19 07:00 99.5 120 9 117/78 (91) 100 07/12/19 06:30 117 9 108/63 (78) 100 07/12/19 06:30 117 26 07/12/19 06:15 113 18 108/63 (78) 100 07/12/19 06:00 30 108/63 Mechanical Ventilator 30 07/12/19 06:00 108/63 07/12/19 06:00 113 0 86/58 (67) 100 07/12/19 05:57 114 0 103/60 (74) 100 07/12/19 05:45 116 17 129/66 (87) 100 07/12/19 05:30 101.5 117 11 109/63 (78) 100 07/12/19 05:15 112 26 113/69 (84) 100 07/12/19 05:00 113 30 114/71 (85) 100 07/12/19 05:00 27 113/69 Mechanical Ventilator 30 07/12/19 05:00 113/69 07/12/19 04:45 112 32 115/64 (81) 100 07/12/19 04:30 114 30 123/66 (85) 100 07/12/19 04:15 115 27 112/61 (78) 100 07/12/19 04:00 118 25 136/71 (92) 98 07/12/19 04:00 30 07/12/19 04:00 28 136/71 Mechanical Ventilator 30 07/12/19 04:00 136/71 07/12/19 04:00 Mechanical Ventilator 07/12/19 04:00 113 07/12/19 03:45 111 29 101/59 (73) 100 07/12/19 03:30 112 30 116/65 (82) 100 07/12/19 03:30 112 29 100 Mechanical Ventilator 30 114 28 30 07/12/19 03:00 33 92/59 Mechanical Ventilator 30 07/12/19 03:00 92/59 07/12/19 03:00 119 31 92/59 (70) 100 07/12/19 02:45 120 27 104/61 (75) 100 07/12/19 02:30 122 31 100/69 (79) 100 07/12/19 02:15 121 34 91/55 (67) 100 07/12/19 02:00 32 91/55 Mechanical Ventilator 30 07/12/19 02:00 124/75 07/12/19 02:00 121 28 89/58 (68) 100 07/12/19 01:45 127 38 124/75 (91) 100 07/12/19 01:30 125 31 133/70 (91) 100 07/12/19 01:18 104/80 07/12/19 01:15 127 33 107/53 (71) 100 07/12/19 01:00 34 107/53 Mechanical Ventilator 30 07/12/19 01:00 107/53 07/12/19 01:00 124 28 104/69 (81) 100 07/12/19 00:45 119 34 144/89 (107) 100 07/12/19 00:30 118 32 155/128 (137) 100 07/12/19 00:15 117 33 148/74 (98) 100 07/12/19 00:00 114 30 131/72 (91) 100 07/12/19 00:00 33 148/74 Mechanical Ventilator 30 07/12/19 00:00 148/74 07/12/19 00:00 111 07/12/19 00:00 Mechanical Ventilator 07/11/19 23:45 115 33 138/79 (98) 100 07/11/19 23:30 113 29 100 Mechanical Ventilator 30 115 30 30 07/11/19 23:30 117 33 145/80 (101) 100 07/11/19 23:15 112 21 136/86 (103) 100 07/11/19 23:00 30 144/77 Mechanical Ventilator 30 07/11/19 23:00 144/77 07/11/19 23:00 144/77 07/11/19 23:00 114 33 144/77 (99) 100 07/11/19 22:30 110 27 135/79 (97) 100 07/11/19 22:00 29 137/67 Mechanical Ventilator 30 07/11/19 22:00 137/67 07/11/19 22:00 113 31 137/67 (90) 100 Intake and Output 07/11/19 07/12/19 18:59 06:59 Intake Total 821.795 ml 770.32 ml Output Total 0 ml 0 ml Balance 821.795 ml 770.32 ml Free Water 150 ml 200 ml IV Total 286.795 ml 150.32 ml Tube Feeding 385 ml 420 ml Output Urine Total 0 ml 0 ml # Bowel Movements 1 Laboratory Tests 07/12/19 05:30: White Blood Count 17.5H, Red Blood Count 3.38L, Hemoglobin 9.8L, Hematocrit 30.7L, Mean Corpuscular Volume 91, Mean Corpuscular Hemoglobin 29.1, Mean Corpuscular Hemoglobin Concent 32.0, Red Cell Distribution Width 16.0H, Platelet Count 466H, Mean Platelet Volume 6.3L, Neutrophils (%) (Auto) 76.6H, Lymphocytes (%) (Auto) 13.4L, Monocytes (%) (Auto) 7.8, Eosinophils (%) (Auto) 1.3, Basophils (%) (Auto) 0.8, Sodium Level 143, Potassium Level 4.9, Chloride Level 99, Carbon Dioxide Level 25, Anion Gap 19H, Blood Urea Nitrogen 117H, Creatinine 13.8H, Estimat Glomerular Filtration Rate 3.6, Glucose Level 293H, Calcium Level 9.8, Phosphorus Level 4.9, Magnesium Level 3.3H, Total Bilirubin 0.5, Direct Bilirubin 0.2, Aspartate Amino Transf (AST/SGOT) 27, Alanine Aminotransferase (ALT/SGPT) 12, Alkaline Phosphatase 124H, Total Protein 9.8H, Albumin 3.0L, Random Vancomycin Level 28.0 Height (Feet): 6 Height (Inches): 1.00 Weight (Pounds): 147 Karishma Mulligan MD Jul 12, 2019 21:38
[2019-07-12] MEDS: Epoetin Alfa-EPBX(ESRD on dialysis)10,000 unit/ml vial SUBQ SCH (21:49)
[2019-07-13] VITALS (39 sets, daily range): BP systolic 84–144; BP diastolic 53–84
--- NOTE | 2019-07-13 01:20 | Pulmonolgy Critical Care Note ---
Critical Care - Asmt/Plan Assessment/Plan: Pulmonary CCM Progress Note HPI: Patient is a 68 year old man, [facility] resident, admitted c/o shortness of breath, cough, noted to have Covid 19 Pneumonia, Respiratory Failure S/p intubation, CXR improving infiltrates ETT adjusted Septic Shock, pressors off Preserved EF FIO2 40%-50%, P5, adequate O2 sats, remains on ACVC, s/p Tracheostomy, CXR stable, for PEG PRN pressors Anemic Seen earlier on 07/12/2019 ID following Past Medical History: COPD, CKD, Hypertension, Anemia Allergies: No Known Allergies Improving Pulmonary Status on HD Physical Exam Vital Signs Noted Sedated on ventilator WDWN, no distress HEENT: NCAT,moist mm Chest: Occasional rhonchi Heart: HS1, HS2, RRR Abdomen: SNTND, no masses Extremities: Well perfused, no edema CLIPPER AND TURNER: No focal signs, no seizures, sedated Impression: COVID-19 virus infection Pneumonia Respiratory failure on ventilator, wean as tolerated CKD - on HD Hypotension on pressors previously Cardiomegaly Lymphopenia Elevated AST COPD Chronic Kidney Disease - HD H/o Hypertension Worsening anemia Plan: Tolerated Tracheostomy Antibiotics per ID HD Pressors PRN ACVC - wean as tolerated [place]ER Medications 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 Monitor cultures/viral studies PPX Hemodialysis per Renal Psychiatry following [facility] - Remdes[facility] requested for when available, [facility] - not available as yet Laboratory Tests Noted: CXR: Hypoventilatory exam, interstitial changes, cardiomegaly, improving infiltrates Subjective ROS Limited/Unobtainable: No Constitutional: Denies: fever Respiratory: Reports: dry cough, shortness of breath Gastrointestinal/Abdominal: Reports: diarrhea, other - colace was stopped Psychiatric: Reports: other - refuses labs Allergies: Coded Allergies: No Known Allergies (Unverified , 05/28/19) All Systems: reviewed and negative except above Labs noted Critical Care - Objective Last 24 Hour Vital Signs Date Time Temp Pulse Resp B/P (MAP) Pulse Ox O2 Delivery O2 Flow Rate FiO2 07/13/19 01:00 100 2 128/84 (99) 100 07/13/19 00:30 98 9 99/69 (79) 100 07/13/19 00:00 Mechanical Ventilator 07/13/19 00:00 92 07/13/19 00:00 95 28 144/73 (96) 100 07/13/19 00:00 30 07/12/19 23:30 93 14 100/64 (76) 100 07/12/19 23:10 89 26 100 Mechanical Ventilator 30 92 26 30 07/12/19 23:00 93 23 128/77 (94) 100 07/12/19 22:30 87 2 111/58 (75) 100 07/12/19 22:00 84 0 97/67 (77) 100 07/12/19 21:30 92 27 127/79 (95) 100 07/12/19 21:00 87 14 101/66 (78) 100 07/12/19 20:30 89 17 101/62 (75) 100 07/12/19 20:00 Mechanical Ventilator 07/12/19 20:00 30 07/12/19 20:00 92 2 85/62 (70) 100 07/12/19 20:00 93 07/12/19 19:30 98 25 91/67 (75) 100 07/12/19 19:08 115 41 99 Mechanical Ventilator 30 114 38 30 07/12/19 19:00 102 28 105/73 (84) 100 07/12/19 18:30 109 34 102/68 (79) 100 07/12/19 18:00 94 31 95/61 (72) 100 07/12/19 18:00 30 120/77 Mechanical Ventilator 30 07/12/19 18:00 120/77 07/12/19 17:30 95 31 114/66 (82) 100 07/12/19 17:00 101 21 101/66 (78) 100 07/12/19 17:00 29 82/58 Mechanical Ventilator 30 07/12/19 17:00 82/58 07/12/19 16:45 101/66 07/12/19 16:30 97 25 102/70 (81) 100 07/12/19 16:30 95/71 07/12/19 16:15 102/70 07/12/19 16:00 30 07/12/19 16:00 98.2 93 22 102/70 (81) 100 07/12/19 16:00 28 100/68 Mechanical Ventilator 30 07/12/19 16:00 100/68 07/12/19 16:00 94 07/12/19 16:00 Mechanical Ventilator 07/12/19 15:30 97 17 89/64 (72) 100 07/12/19 15:05 90 26 100 Mechanical Ventilator 30 90 26 30 07/12/19 15:00 88 3 104/62 (76) 100 07/12/19 15:00 23 111/67 Mechanical Ventilator 30 07/12/19 15:00 111/67 07/12/19 14:30 100 26 95/57 (70) 100 07/12/19 14:00 24 100/63 Mechanical Ventilator 30 07/12/19 14:00 100/63 07/12/19 14:00 107 32 109/76 (87) 100 07/12/19 13:45 109/76 07/12/19 13:30 99 20 108/57 (74) 100 07/12/19 13:30 118/72 07/12/19 13:15 108/57 07/12/19 13:00 20 109/65 Mechanical Ventilator 30 07/12/19 13:00 109/65 07/12/19 13:00 103 13 88/57 (67) 100 07/12/19 12:45 88/57 07/12/19 12:30 94/64 07/12/19 12:30 104 17 98/60 (73) 100 07/12/19 12:15 98/60 07/12/19 12:00 30 07/12/19 12:00 15 82/50 Mechanical Ventilator 30 07/12/19 12:00 82/50 07/12/19 12:00 105 07/12/19 12:00 99.4 107 11 115/54 (74) 100 07/12/19 12:00 Mechanical Ventilator 07/12/19 11:30 103 12 113/76 (88) 100 07/12/19 11:15 100 07/12/19 11:10 105 28 100 Mechanical Ventilator 30 105 28 30 07/12/19 11:00 20 105/72 Mechanical Ventilator 30 07/12/19 11:00 105/72 07/12/19 11:00 103 20 106/62 (77) 100 07/12/19 10:45 106/62 07/12/19 10:30 104 16 98/65 (76) 100 07/12/19 10:30 80/58 07/12/19 10:15 98/65 07/12/19 10:00 111 20 89/57 (68) 100 6/1/20 10:00 20 89/57 Mechanical Ventilator 30 07/12/19 10:00 89/57 07/12/19 09:30 106 27 127/77 (94) 100 07/12/19 09:00 109 27 105/61 (76) 100 07/12/19 09:00 26 111/70 Mechanical Ventilator 30 07/12/19 09:00 111/70 07/12/19 08:30 110 26 112/63 (79) 100 07/12/19 08:00 99.2 112 26 113/62 (79) 99 07/12/19 08:00 Mechanical Ventilator 07/12/19 08:00 30 07/12/19 08:00 24 94/63 Mechanical Ventilator 30 07/12/19 08:00 94/63 07/12/19 08:00 126 07/12/19 07:30 119 30 133/76 (95) 100 07/12/19 07:05 119 34 99 Mechanical Ventilator 30 119 34 30 07/12/19 07:03 99.5 07/12/19 07:00 30 122/73 Mechanical Ventilator 30 07/12/19 07:00 122/73 07/12/19 07:00 99.5 120 9 117/78 (91) 100 07/12/19 06:30 117 9 108/63 (78) 100 07/12/19 06:30 117 26 07/12/19 06:15 113 18 108/63 (78) 100 07/12/19 06:00 30 108/63 Mechanical Ventilator 30 07/12/19 06:00 108/63 07/12/19 06:00 113 0 86/58 (67) 100 07/12/19 05:57 114 0 103/60 (74) 100 07/12/19 05:45 116 17 129/66 (87) 100 07/12/19 05:30 101.5 117 11 109/63 (78) 100 07/12/19 05:15 112 26 113/69 (84) 100 07/12/19 05:00 113 30 114/71 (85) 100 07/12/19 05:00 27 113/69 Mechanical Ventilator 30 07/12/19 05:00 113/69 07/12/19 04:45 112 32 115/64 (81) 100 07/12/19 04:30 114 30 123/66 (85) 100 07/12/19 04:15 115 27 112/61 (78) 100 07/12/19 04:00 118 25 136/71 (92) 98 07/12/19 04:00 30 07/12/19 04:00 28 136/71 Mechanical Ventilator 30 07/12/19 04:00 136/71 07/12/19 04:00 Mechanical Ventilator 07/12/19 04:00 113 07/12/19 03:45 111 29 101/59 (73) 100 07/12/19 03:30 112 30 116/65 (82) 100 07/12/19 03:30 112 29 100 Mechanical Ventilator 30 114 28 30 07/12/19 03:00 33 92/59 Mechanical Ventilator 30 07/12/19 03:00 92/59 07/12/19 03:00 119 31 92/59 (70) 100 07/12/19 02:45 120 27 104/61 (75) 100 07/12/19 02:30 122 31 100/69 (79) 100 07/12/19 02:15 121 34 91/55 (67) 100 07/12/19 02:00 32 91/55 Mechanical Ventilator 30 07/12/19 02:00 124/75 07/12/19 02:00 121 28 89/58 (68) 100 07/12/19 01:45 127 38 124/75 (91) 100 07/12/19 01:30 125 31 133/70 (91) 100 Accucheck: 140 Critical Care - Subjective ROS Limited/Unobtainable: No Condition: stable IV Access: central FI02: 30 Vent Support Breath Rate: 26 Vent Support Mode: AC Vent Tidal Volume: 500 Sputum Amount: Small PEEP: 5.0 PIP: 27 Tube Feeding Amount: 0 I&O: Intake and Output 07/12/19 07/13/19 19:00 07:00 Intake Total 707.240 ml 290 ml Output Total 1000 ml 0 ml Balance -292.760 ml 290 ml Free Water 150 ml 150 ml IV Total 277.240 ml Tube Feeding 280 ml 140 ml Output Urine Total 0 ml 0 ml Hemodialysis UF 1000 ml # Bowel Movements 4 3 ET-Tube: 7.5 ET Position: 24 Arturo Mckeon MD Jul 13, 2019 01:20
[2019-07-13] MEDS: Albuterol 90mcg Inhaler 8gm INH SCH ×6 (03:13→23:36)
[2019-07-13] MEDS: Renvela 800mg Pkt NG SCH ×3 (05:56→22:31)
[2019-07-13] MEDS: Acetaminophen 650mg/20.3ml NG PRN ×2 (05:57→22:31)
[2019-07-13] MEDS: fentaNYL 2500mcg/NS 250ml IV SCH ×2 (06:00→10:00)
[2019-07-13] MEDS: NovoLOG Insulin Flexpen SUBQ SCH ×5 (06:00→23:45)
[2019-07-13] MEDS: Pantoprazole Inj IVP SCH (08:35)
[2019-07-13] MEDS: Midodrine 10mg tab NG SCH ×3 (08:35→17:46)
[2019-07-13] MEDS: Enoxaparin 30mg Inj SUBQ SCH (08:39)
[2019-07-13] MEDS: D5W IV SCH ×3 (08:39)
[2019-07-13] MEDS: NOREPINEPHRINE BITARTRATE IV SCH ×3 (08:39)
--- NOTE | 2019-07-13 09:43 | Infectious Diseases Prog Note ---
Assessment/Plan Assessment/Plan IMPRESSION: 1. COVID19 pneumonia Positive: 05/27, 05/31 , 06/05, 06/09 ,06/17, 06/19, 06/23, 06/27, 07/03 2. MRSA carrier. 3. Chronic kidney disease , end-stage renal disease. 4. COPD. 5. Hypertension. 6. Anemia. 7. Hypothyroidism. 8. Hyperlipidemia. 9. Major depression. 10. Leukocytosis 11. Hypotension 12. Hepatitis C 13. Hyperuricemia 14. Diarrhea 15. septic shock 16. Leukocytosis 17. Bacteremia with Staph epidermidis Subsequent cultures negative RECOMMENDATIONS: Continue Vancomycin & Meropenem Finished hydroxychloroquine. 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 Subjective ROS Limited/Unobtainable: Yes Constitutional: Denies: fever Allergies: Coded Allergies: No Known Allergies (Unverified , 05/28/19) Objective Vital Signs Last 24 Hour Vital Signs Date Time Temp Pulse Resp B/P (MAP) Pulse Ox O2 Delivery O2 Flow Rate FiO2 07/13/19 08:39 97/56 07/13/19 08:28 100 07/13/19 07:14 95 28 100 Mechanical Ventilator 30 99 28 30 07/13/19 07:00 95 20 90/69 (76) 100 07/13/19 07:00 23 97/55 Mechanical Ventilator 30 07/13/19 07:00 97/56 07/13/19 06:51 99.5 07/13/19 06:30 99.5 96 0 94/55 (68) 100 07/13/19 06:00 20 94/56 Mechanical Ventilator 30 07/13/19 06:00 94/55 07/13/19 06:00 98 0 90/57 (68) 100 07/13/19 05:30 99 4 84/67 (73) 100 07/13/19 05:00 20 110/66 Mechanical Ventilator 30 07/13/19 05:00 110/66 07/13/19 05:00 105 15 110/66 (81) 100 07/13/19 04:30 107 20 110/79 (89) 100 07/13/19 04:00 30 07/13/19 04:00 20 112/79 Mechanical Ventilator 30 07/13/19 04:00 112/79 07/13/19 04:00 103 07/13/19 04:00 Mechanical Ventilator 07/13/19 04:00 106 21 112/79 (90) 100 07/13/19 03:30 109 17 100/72 (81) 100 07/13/19 03:13 103 26 100 Mechanical Ventilator 30 101 26 30 07/13/19 03:00 23 110/84 Mechanical Ventilator 30 07/13/19 03:00 110/84 07/13/19 03:00 103 19 110/84 (93) 100 07/13/19 02:30 109 26 107/72 (84) 100 07/13/19 02:00 109 27 135/81 (99) 100 07/13/19 02:00 23 135/81 Mechanical Ventilator 30 07/13/19 02:00 135/81 07/13/19 01:30 109 19 115/77 (90) 100 07/13/19 01:00 100 2 128/84 (99) 100 07/13/19 01:00 18 128/84 Mechanical Ventilator 30 07/13/19 01:00 128/84 07/13/19 00:30 98 9 99/69 (79) 100 07/13/19 00:00 Mechanical Ventilator 07/13/19 00:00 92 07/13/19 00:00 20 117/51 Mechanical Ventilator 30 07/13/19 00:00 117/51 07/13/19 00:00 95 28 144/73 (96) 100 07/13/19 00:00 30 07/12/19 23:30 93 14 100/64 (76) 100 07/12/19 23:10 89 26 100 Mechanical Ventilator 30 92 26 30 07/12/19 23:00 99.4 93 23 128/77 (94) 100 07/12/19 23:00 25 127/83 Mechanical Ventilator 30 07/12/19 23:00 127/83 07/12/19 22:30 87 2 111/58 (75) 100 07/12/19 22:00 84 0 97/67 (77) 100 07/12/19 22:00 20 113/63 Mechanical Ventilator 30 07/12/19 22:00 113/63 07/12/19 21:30 92 27 127/79 (95) 100 07/12/19 21:00 18 85/60 Mechanical Ventilator 30 07/12/19 21:00 85/60 07/12/19 21:00 87 14 101/66 (78) 100 07/12/19 20:30 89 17 101/62 (75) 100 07/12/19 20:00 Mechanical Ventilator 07/12/19 20:00 21 122/78 Mechanical Ventilator 30 07/12/19 20:00 122/78 07/12/19 20:00 30 07/12/19 20:00 92 2 85/62 (70) 100 07/12/19 20:00 93 07/12/19 19:30 98 25 91/67 (75) 100 07/12/19 19:08 115 41 99 Mechanical Ventilator 30 114 38 30 07/12/19 19:00 102 28 105/73 (84) 100 07/12/19 19:00 26 82/55 Mechanical Ventilator 30 07/12/19 19:00 82/55 07/12/19 18:30 109 34 102/68 (79) 100 07/12/19 18:00 94 31 95/61 (72) 100 07/12/19 18:00 30 120/77 Mechanical Ventilator 30 07/12/19 18:00 120/77 07/12/19 17:30 95 31 114/66 (82) 100 07/12/19 17:00 101 21 101/66 (78) 100 07/12/19 17:00 29 82/58 Mechanical Ventilator 30 07/12/19 17:00 82/58 07/12/19 16:45 101/66 07/12/19 16:30 97 25 102/70 (81) 100 07/12/19 16:30 95/71 07/12/19 16:15 102/70 07/12/19 16:00 30 07/12/19 16:00 98.2 93 22 102/70 (81) 100 07/12/19 16:00 28 100/68 Mechanical Ventilator 30 07/12/19 16:00 100/68 07/12/19 16:00 94 07/12/19 16:00 Mechanical Ventilator 07/12/19 15:30 97 17 89/64 (72) 100 07/12/19 15:05 90 26 100 Mechanical Ventilator 30 90 26 30 07/12/19 15:00 88 3 104/62 (76) 100 07/12/19 15:00 23 111/67 Mechanical Ventilator 30 07/12/19 15:00 111/67 07/12/19 14:30 100 26 95/57 (70) 100 07/12/19 14:00 24 100/63 Mechanical Ventilator 30 07/12/19 14:00 100/63 07/12/19 14:00 107 32 109/76 (87) 100 07/12/19 13:45 109/76 07/12/19 13:30 99 20 108/57 (74) 100 07/12/19 13:30 118/72 07/12/19 13:15 108/57 07/12/19 13:00 20 109/65 Mechanical Ventilator 30 07/12/19 13:00 109/65 07/12/19 13:00 103 13 88/57 (67) 100 07/12/19 12:45 88/57 07/12/19 12:30 94/64 07/12/19 12:30 104 17 98/60 (73) 100 07/12/19 12:15 98/60 07/12/19 12:00 30 07/12/19 12:00 15 82/50 Mechanical Ventilator 30 07/12/19 12:00 82/50 07/12/19 12:00 105 07/12/19 12:00 99.4 107 11 115/54 (74) 100 07/12/19 12:00 Mechanical Ventilator 07/12/19 11:30 103 12 113/76 (88) 100 07/12/19 11:15 100 07/12/19 11:10 105 28 100 Mechanical Ventilator 30 105 28 30 07/12/19 11:00 20 105/72 Mechanical Ventilator 30 07/12/19 11:00 105/72 07/12/19 11:00 103 20 106/62 (77) 100 07/12/19 10:45 106/62 07/12/19 10:30 104 16 98/65 (76) 100 07/12/19 10:30 80/58 07/12/19 10:15 98/65 07/12/19 10:00 111 20 89/57 (68) 100 07/12/19 10:00 20 89/57 Mechanical Ventilator 30 07/12/19 10:00 89/57 Height (Feet): 6 Height (Inches): 1.00 Weight (Pounds): 147 HEENT: status post trach Respiratory/Chest: other - on ventilator Cardiovascular: normal rate, other - Central & HD line Abdomen: soft, non tender, other - GT in plce Extremities: no edema Neurologic/Psychiatric: disoriented Microbiology Date/Time Source Procedure Growth Status 07/11/19 13:14 Blood Blood Culture - Preliminary NO GROWTH AFTER 24 HOURS Resulted Current Medications Medications (Trade) Dose Ordered Sig/Anthony Route PRN Reason Start Time Stop Time Status Last Admin Dose Admin Acetaminophen (Tylenol) 650 mg Q4H PRN NG Temp >100.5 06/13/19 11:00 07/13/19 10:59 07/13/19 05:57 Acetaminophen (Tylenol) 650 mg Q4H PRN NG For Pain 07/11/19 08:00 08/10/19 07:59 07/12/19 14:24 Albuterol Sulfate (Proventil MDI) 2 puff Q4HRT INH 06/06/19 23:00 08/30/19 18:59 07/13/19 08:28 Chlorhexidine Gluconate (Michelle-Hex 2%) 1 applic DAILY@2000 TOPIC 06/07/19 20:00 09/05/19 19:59 07/12/19 21:32 Dextrose (Dextrose 50%) 25 ml Q30M PRN IV Hypoglycemia 06/20/19 19:30 09/18/19 19:29 Dextrose (Dextrose 50%) 50 ml Q30M PRN IV Hypoglycemia 06/20/19 19:30 09/18/19 19:29 Dopamine HCl/ Dextrose 250 ml @ 0 mls/hr Q24H PRN IV For hypotension 06/13/19 08:15 09/11/19 08:14 Enoxaparin Sodium (Lovenox) 30 mg DAILY SUBQ 06/07/19 09:00 08/27/19 08:59 07/11/19 08:39 Epoetin Aftab (Epoetin Aftab(ESRD on dialysis)) 10,000 unit FRI-FRI-FRI SUBQ 06/07/19 21:00 08/31/19 20:59 07/12/19 21:49 Fentanyl Citrate 250 ml @ 0 mls/hr Q24H IV 06/24/19 06:00 09/22/19 05:59 07/10/19 21:19 Haloperidol Lactate 5 mg/ Dextrose 56 ml @ 224 mls/hr Q6H PRN IVPB Agitation 07/11/19 15:00 08/25/19 14:59 07/12/19 09:35 Hydralazine HCl (Apresoline) 10 mg Q4H PRN IV Blood pressure over 160 systol 06/07/19 10:15 09/05/19 10:14 Hydromorphone HCl (Dilaudid) 0.5 mg Q3H PRN IVP For Pain 07/11/19 15:00 07/18/19 14:59 Insulin Aspart (NovoLOG) EVERY 6 HOURS SUBQ 06/21/19 00:00 09/19/19 00:00 07/12/19 18:29 Lorazepam (Ativan 2mg/ml 1ml) 0.5 mg Q4H PRN IV For Anxiety 07/11/19 15:00 07/18/19 14:59 07/12/19 01:48 Meropenem 500 mg/ Sodium Chloride 55 ml @ 110 mls/hr Q24H IVPB 07/09/19 18:00 07/14/19 17:59 07/12/19 17:26 Metoclopramide HCl (Reglan) 5 mg Q8H PRN IVP Nausea & Vomiting 06/18/19 12:00 07/18/19 11:59 06/19/19 00:50 Midodrine (Pro-Amatine) 10 mg THREE TIMES A DAY NG 06/09/19 13:00 09/07/19 12:59 07/13/19 08:35 Norepinephrine Bitartrate 8 mg/ Dextrose 283 ml @ 0 mls/hr Q24H IV 06/23/19 23:00 07/23/19 22:59 07/13/19 08:39 Pantoprazole (Protonix) 40 mg DAILY IVP 06/19/19 09:00 07/19/19 08:59 07/13/19 08:35 Sevelamer Carbonate (Renvela) 2,400 mg Q8HR NG 07/11/19 14:00 09/05/19 12:59 07/13/19 05:56 Vancomycin HCl (Vanco rx to dose) 1 ea DAILY PRN MISC Per rx protocol 07/01/19 11:00 07/31/19 10:59 Ted Leyva MD Jul 13, 2019 09:43
[2019-07-13 10:37] LABS: INR 1.1 (0.9-1.1)
[2019-07-13 10:42] LABS: EOSINOPHILS % (AUTO) 1.4 % (0.0-3.0); HEMATOCRIT 29.7 % (42.0-52.0); HEMOGLOBIN 9.8 G/DL (14.2-18.0); LYMPHOCYTES % (AUTO) 10.8 % (20.0-45.0); MEAN CORPUSCULAR VOLUME 89 FL (80-99); MONOCYTES % (AUTO) 6.7 % (1.0-10.0); NEUTROPHILS % (AUTO) 80.1 % (45.0-75.0); PLATELET COUNT 425 K/UL (150-450); RED BLOOD COUNT 3.35 M/UL (4.70-6.10); RED CELL DISTRIBUTION WIDTH 15.5 % (11.6-14.8); WHITE BLOOD COUNT 16.8 K/UL (4.8-10.8)
[2019-07-13 10:46] LABS: ALANINE AMINOTRANSFERASE 19 U/L (12-78); ALBUMIN 3.5 G/DL (3.4-5.0); ALBUMIN/GLOBULIN RATIO 0.5 (1.0-2.7); ALKALINE PHOSPHATASE 104 U/L (46-116); ANION GAP 17 mmol/L (5-15); ASPARTATE AMINO TRANSFERASE 30 U/L (15-37); BILIRUBIN,TOTAL 0.6 MG/DL (0.2-1.0); BLOOD UREA NITROGEN 71 mg/dL (7-18); CALCIUM 9.6 MG/DL (8.5-10.1); CARBON DIOXIDE 29 MMOL/L (21-32); CHLORIDE 94 MMOL/L (98-107); CREATININE 9.5 MG/DL (0.55-1.30); POTASSIUM 4.2 MMOL/L (3.5-5.1); SODIUM 140 MMOL/L (136-145)
[2019-07-13] MEDS: LORazepam Inj 2mg/ml 1ml IV PRN (11:16)
[2019-07-13] MEDS: Haloperidol Lactate 5 MG in D5W 55 ML IVPB PRN (11:17)
--- NOTE | 2019-07-13 12:36 | Pre-Procedure Note/Attestation ---
Pre-Procedure Note/Attestation Complete Prior to Procedure Planned Procedure: not applicable Procedure Narrative: egd/peg Indications for Procedure Pre-Operative Diagnosis: dysphagia Attestation I attest that I discussed the nature of the procedure; its benefits; risks and complications; and alternatives (and the risks and benefits of such alternatives ), prior to the procedure, with the patient (or the patient's legal junior sales representative). I attest that, if there was a reasonable possibility of needing a blood transfusion, the patient (or the patient's legal junior sales representative) was given the [facility] standardized written summary, pursuant to the [place] Blood Safety Act ([place] Health and Safety Code # 1645, as amended). I attest that I re-evaluated the patient just prior to the surgery and that there has been no change in the patient's H&P, except as documented below: Marito Ramires MD Jul 13, 2019 12:36
--- NOTE | 2019-07-13 12:39 | Nephrology Progress Note ---
Assessment/Plan Problem List: (1) CASSANDRA (acute kidney injury) (2) Anemia in chronic kidney disease (CKD) (3) HTN (hypertension) (4) COVID-19 Assessment Acute renal failure most likely superimposed on chronic kidney disease Suspected COVID-19 virus infection Possible Pneumonia, lymphopenia, elevated AST Cardiomegaly, possible CHF COPD Hypertension Anemia, most likely related to chronic kidney disease Plan July 12: Due for PEG today. Due for dialysis tomorrow. Continue per consultants. Discussed with RN. July 11: Plan for dialysis today. Discussed with RN. Data reviewed. July 10: Plan for dialysis tomorrow July 11. Waiting for consent to proceed with PEG. Continue per consultants. Medication reviewed. Labs reviewed. Discussed with RN. July 09: Dialyzed yesterday. Labs reviewed. Medication reviewed. Next hemodialysis July 11. July 08: Patient has tracheostomy now. Connected to ventilator. Due for dialysis today. Continue per consultants. Discussed with SHANIQUE Romero. July 07: Patient is due for tracheostomy today. Patient was last dialyzed July 05. Will order dialysis for tomorrow. July 06: Patient is intubated on ventilator however the plan is to extubate today. Patient was dialysis yesterday July 05. The dialysis time was cut short due to patient's respiratory distress. Only 1 L was removed during dialysis yesterday. Today's lab reviewed. Continue per consultants. Will arrange for dialysis as needed. July 05: Patient due for dialysis today. Remains intubated. Will schedule permacath placement in a.m. blood cultures on July 04 are negative. July 04: Patient was dialyzed yesterday. Due for dialysis tomorrow. Continues to be intubated. After tomorrow's dialysis will order a permacath. July 03: Dialysis is about to be started now Continues to be intubated Will plan to remove the femoral dialysis catheter and exchanged for a new temporary catheter per ID recommendation We will check surveillance blood culture tomorrow July 02: Patient was dialyzed yesterday and due for dialysis tomorrow Stable from renal standpoint W on dialysis Continue per consultants, weaning....... etc. July 01: Dialysis today Other status unchanged June 30: Due for dialysis tomorrow Remains intubated on ventilator Labs and medication reviewed Discussed with RN Mansoor from renal standpoint of view June 29: Dialyzed yesterday Due for dialysis tomorrow Stable from renal standpoint to view Keeps failing weaning process June 28: Patient due for dialysis today Stable from renal standpoint to view Continue per consultants June 27: Labs reviewed Due due for dialysis June 28 Discussed with SHANIQUE Dick Continue per consultants Remains intubated on ventilator June 26 Labs reviewed Dialyzed yesterday Started on weaning today Continue to monitor renal parameters June 16: On dialysis now Potassium supplement implemented Continue per consultants Next dialysis June 27June 15: Status unchanged Dialyzed yesterday will dialyze again tomorrow Potassium supplements given Discussed with RN June 14: Due dialysis today Status: Remains intubated on ventilator June 22: Status unchanged Dialyzed yesterday and duefordialysistomorrow Serum sodium stable today June 21 Remains intubated on ventilator Due dialysis today Emphasized high sodium bath for dialysis June 20: Remains intubated on ventilator Dialyzed June 19 next dialysis June 21 Serum sodium 128, will give 250 cc 3% saline Remains full code Discussed with RN Iron panel ordered June 19: Discussed with RN. Patient due for dialysis today. Continue pulmonary support. Remains full code. June 18: Patient dialyzed yesterday June 17 Serum sodium improved but still low Arrange for dialysis tomorrow June 19 Continue per consultants June 8: Due for dialysis today Today's lab reviewed, low serum sodium noted, Emphasized on high sodium bath to dialysis nurse Discussed with SHANIQUE Yuen June 16: Dialyzed yesterday Remains intubated Labs reviewed, serum sodium 131 Plan to dialyze tomorrow June 17 with high sodium bath Discussed with SHANIQUE Yuen June 6: Due for dialysis today Labs reviewed Discussed with RN Transfuse 1 unit of packed RBCs today for low hemoglobin of 7.1 June 5: Blood pressure well maintained Receive dialysis June 13 next hemodialysis June 15June 4: Discussed with RN in ICU Patient did not receive proper dialysis yesterday due to dialysis catheter malfunction Catheter to be adjusted today and dialyzed to be resumed today Continue per consultants Positive for COVID 28 June 2: Patient now intubated on mechanical ventilation Discussed with SHANIQUE Yuen, today June 12 Patient received dialysis yesterday June 10 next hemodialysis June 12 Blood pressure better maintained Today's labs reviewed Continue per consultants Previously patient received dialysis last evening June 05, next dialysis June 07 which was incomplete due to patient's hypotension Will start on midodrine for blood pressure support. Meanwhile continue other pressors as needed Previously Patient is doing poorly, septic, white blood cells are rising, Hypotension somewhat improved We will keep n.p.o. , NG tube for medications, and change medication to IV as needed Patient remains full code Monitor vancomycin level Previously: Patient pulled out his femoral catheter yesterday June 03 which was reinserted by Dr. Mast Patient scheduled for dialysis again June 04, which again was not done due to dialysis nurse citing catheter malfunction Meanwhile continue management per ID, pulmonary , and psych. Meanwhile white blood cell count is rising. Patient blood pressure borderline low. Will check ABG Previously May 31 : I believe patient need dialysis treatment He however needs to competency assessment if can make decisions or not I will communicate with Dr. Mulligan Previously: Per pulmonary and ID advice Adjust blood pressure medication Renal diet Anemia work-up 2D echocardiogram refused Kidney ultrasound refused Jules catheter Urine studies Per orders Subjective ROS Limited/Unobtainable: Yes Objective Objective Last 24 Hour Vital Signs Date Time Temp Pulse Resp B/P (MAP) Pulse Ox O2 Delivery O2 Flow Rate FiO2 07/13/19 12:00 106 07/13/19 12:00 104 28 99/63 (75) 100 07/13/19 11:30 102 0 84/53 (63) 100 07/13/19 11:25 100 28 30 07/13/19 11:00 105 26 96/66 (76) 100 07/13/19 09:45 112 34 98 07/13/19 09:30 96 12 104/66 (79) 100 07/13/19 09:15 95 0 100 07/13/19 09:00 95 12 104/73 (83) 100 07/13/19 08:45 94 21 100 07/13/19 08:39 97/56 07/13/19 08:30 94 19 111/73 (86) 100 07/13/19 08:28 100 07/13/19 08:15 92 6 100 07/13/19 08:00 93 37 95/71 (79) 100 07/13/19 08:00 113 07/13/19 08:00 Mechanical Ventilator 07/13/19 08:00 30 07/13/19 07:45 95 15 100 07/13/19 07:30 94 23 90/69 (76) 100 07/13/19 07:14 95 28 100 Mechanical Ventilator 30 99 28 30 07/13/19 07:00 95 20 90/69 (76) 100 07/13/19 07:00 23 97/55 Mechanical Ventilator 30 07/13/19 07:00 97/56 07/13/19 06:51 99.5 07/13/19 06:30 99.5 96 0 94/55 (68) 100 07/13/19 06:00 20 94/56 Mechanical Ventilator 30 07/13/19 06:00 94/55 07/13/19 06:00 98 0 90/57 (68) 100 07/13/19 05:30 99 4 84/67 (73) 100 07/13/19 05:00 20 110/66 Mechanical Ventilator 30 07/13/19 05:00 110/66 07/13/19 05:00 105 15 110/66 (81) 100 07/13/19 04:30 107 20 110/79 (89) 100 07/13/19 04:00 30 07/13/19 04:00 20 112/79 Mechanical Ventilator 30 07/13/19 04:00 112/79 07/13/19 04:00 103 07/13/19 04:00 Mechanical Ventilator 07/13/19 04:00 106 21 112/79 (90) 100 07/13/19 03:30 109 17 100/72 (81) 100 07/13/19 03:13 103 26 100 Mechanical Ventilator 30 101 26 30 07/13/19 03:00 23 110/84 Mechanical Ventilator 30 07/13/19 03:00 110/84 07/13/19 03:00 103 19 110/84 (93) 100 07/13/19 02:30 109 26 107/72 (84) 100 07/13/19 02:00 109 27 135/81 (99) 100 07/13/19 02:00 23 135/81 Mechanical Ventilator 30 07/13/19 02:00 135/81 07/13/19 01:30 109 19 115/77 (90) 100 07/13/19 01:00 100 2 128/84 (99) 100 07/13/19 01:00 18 128/84 Mechanical Ventilator 30 07/13/19 01:00 128/84 07/13/19 00:30 98 9 99/69 (79) 100 07/13/19 00:00 Mechanical Ventilator 07/13/19 00:00 92 07/13/19 00:00 20 117/51 Mechanical Ventilator 30 07/13/19 00:00 117/51 07/13/19 00:00 95 28 144/73 (96) 100 07/13/19 00:00 30 07/12/19 23:30 93 14 100/64 (76) 100 07/12/19 23:10 89 26 100 Mechanical Ventilator 30 92 26 30 07/12/19 23:00 99.4 93 23 128/77 (94) 100 07/12/19 23:00 25 127/83 Mechanical Ventilator 30 07/12/19 23:00 127/83 07/12/19 22:30 87 2 111/58 (75) 100 07/12/19 22:00 84 0 97/67 (77) 100 07/12/19 22:00 20 113/63 Mechanical Ventilator 30 07/12/19 22:00 113/63 07/12/19 21:30 92 27 127/79 (95) 100 07/12/19 21:00 18 85/60 Mechanical Ventilator 30 07/12/19 21:00 85/60 07/12/19 21:00 87 14 101/66 (78) 100 07/12/19 20:30 89 17 101/62 (75) 100 07/12/19 20:00 Mechanical Ventilator 07/12/19 20:00 21 122/78 Mechanical Ventilator 30 07/12/19 20:00 122/78 07/12/19 20:00 30 07/12/19 20:00 92 2 85/62 (70) 100 07/12/19 20:00 93 07/12/19 19:30 98 25 91/67 (75) 100 07/12/19 19:08 115 41 99 Mechanical Ventilator 30 114 38 30 07/12/19 19:00 102 28 105/73 (84) 100 07/12/19 19:00 26 82/55 Mechanical Ventilator 30 07/12/19 19:00 82/55 07/12/19 18:30 109 34 102/68 (79) 100 07/12/19 18:00 94 31 95/61 (72) 100 07/12/19 18:00 30 120/77 Mechanical Ventilator 30 07/12/19 18:00 120/77 07/12/19 17:30 95 31 114/66 (82) 100 07/12/19 17:00 101 21 101/66 (78) 100 07/12/19 17:00 29 82/58 Mechanical Ventilator 30 07/12/19 17:00 82/58 07/12/19 16:45 101/66 07/12/19 16:30 97 25 102/70 (81) 100 07/12/19 16:30 95/71 07/12/19 16:15 102/70 07/12/19 16:00 30 07/12/19 16:00 98.2 93 22 102/70 (81) 100 07/12/19 16:00 28 100/68 Mechanical Ventilator 30 07/12/19 16:00 100/68 07/12/19 16:00 94 07/12/19 16:00 Mechanical Ventilator 07/12/19 15:30 97 17 89/64 (72) 100 07/12/19 15:05 90 26 100 Mechanical Ventilator 30 90 26 30 07/12/19 15:00 88 3 104/62 (76) 100 07/12/19 15:00 23 111/67 Mechanical Ventilator 30 07/12/19 15:00 111/67 07/12/19 14:30 100 26 95/57 (70) 100 07/12/19 14:00 24 100/63 Mechanical Ventilator 30 07/12/19 14:00 100/63 07/12/19 14:00 107 32 109/76 (87) 100 07/12/19 13:45 109/76 07/12/19 13:30 99 20 108/57 (74) 100 07/12/19 13:30 118/72 07/12/19 13:15 108/57 07/12/19 13:00 20 109/65 Mechanical Ventilator 30 07/12/19 13:00 109/65 07/12/19 13:00 103 13 88/57 (67) 100 07/12/19 12:45 88/57 Intake and Output 07/12/19 07/13/19 19:00 07:00 Intake Total 721.970 ml 458.85 ml Output Total 1000 ml 0 ml Balance -278.030 ml 458.85 ml Free Water 150 ml 210 ml IV Total 291.970 ml 108.85 ml Tube Feeding 280 ml 140 ml Output Urine Total 0 ml 0 ml Hemodialysis UF 1000 ml # Bowel Movements 4 3 Laboratory Tests 07/13/19 08:45: White Blood Count 16.8H, Red Blood Count 3.35L, Hemoglobin 9.8L, Hematocrit 29.7L, Mean Corpuscular Volume 89, Mean Corpuscular Hemoglobin 29.3, Mean Corpuscular Hemoglobin Concent 33.0, Red Cell Distribution Width 15.5H, Platelet Count 425, Mean Platelet Volume 7.0, Neutrophils (%) (Auto) 80.1H, Lymphocytes (%) (Auto) 10.8L, Monocytes (%) (Auto) 6.7, Eosinophils (%) (Auto) 1.4, Basophils (%) (Auto) 1.0, Prothrombin Time 12.2H, Prothromb Time International Ratio 1.1, Activated Partial Thromboplast Time 26, Sodium Level 140, Potassium Level 4.2, Chloride Level 94L, Carbon Dioxide Level 29, Anion Gap 17H, Blood Urea Nitrogen 71H, Creatinine 9.5H, Estimat Glomerular Filtration Rate 5.6, Glucose Level 174#H, Calcium Level 9.6, Total Bilirubin 0.6 , Aspartate Amino Transf (AST/SGOT) 30, Alanine Aminotransferase (ALT/SGPT) 19, Alkaline Phosphatase 104, Total Protein 10.6H, Albumin 3.5, Globulin 7.1, Albumin/Globulin Ratio 0.5L Height (Feet): 6 Height (Inches): 1.00 Weight (Pounds): 147 General Appearance: no apparent distress EENT: other - Trach and vent Cardiovascular: tachycardia Respiratory/Chest: decreased breath sounds Abdomen: distended Objective No change Mic Cole MD Jul 13, 2019 12:39
--- NOTE | 2019-07-13 12:47 | Hematology/Onc Progress Note ---
Assessment/Plan Assessment/Plan Assessment and Recs: # Anemia of chronic disease, likely related ot underlying kidney disease has COIVD19++++++ --> hgb trend 9-->8-->7.3-->7.9-->6.8->9.5-->10->8.3-->7.7-->7.1-->8.9->8.8->7.7 -->8.1 ->7.9-->7.7 -->8.2-->8.1 -->7.9-->8.5 -->9->9.2-->9.5-->10.7 -->9.8 --> transfuse as needed, hgb goal >7 --> no evidence of hemolysis --> peripheral smear has been reviewed --> epogen started 3 x a week ==>> transfuse 06/08, 06/15, # Leukocytosis likely related to suspected COVID-19 virus infection --> completed plaquenil --> trend smear as needed --> wbc trend: 4-->11-->14.5-->21-->26-->21->24--.28-->23-->19-->16.2-->21--> 11.2 -->12.5-->12.3-->12.4-->18.5-->18.5-->17 --> pulm is aware --> on abx cefepime/vanc->zosyn/vanc-->dom/vanc --> pressors as needed --> 06/27 covid 19++ # Thrombocytopenia/Lymphopenia --> likely related to covid19 --> plt 129k-->186k-->251-->285-->384 -->430-->539-->515-->447 --> abx: dom/vanc # Respiratory failure with covid19+ --> s/p vent/trach --> weaning # Possible Pneumonia --> abx completed # Cardiomegaly # Transaminitis with Elevated AST # COPD # Chronic Kidney Disease --> per renal hd --> s/p right femoral cath 07/02 # Hypertension # Dvt ppx lovenox # peg for 07/12/2019 Appreciate consultation and ernesto Rn Subjective Allergies: Coded Allergies: No Known Allergies (Unverified , 05/28/19) All Systems: reviewed and negative except above Subjective 06/01 nv, extremely agitated, not allowing labs draws, no night sweats, cbc ordered 06/02 confused, restraints, on abx and plaquenil, hgb 7.9, nrb 15 L 06/03 is with nonrebreather, but not compliant, remains confused 06/05 no bleeding, labs noted, no major bleeding, otherwise comfortable 06/06 labs reviewed, no bleeding, meds noted, no night sweats, on levo and nonrebreather 06/07 labs noted, no bleeding, meds reviewed, no bleeding, wbc higher 06/08 to get 2 units prbc, no night sweats, meds reviewed 06/09 is on cefepime and vanc, labs noted, ernesto Rn, no bleeding 06/10 no major changes, labs reviewed, wbc 28k, on abx, cefepime 06/12 remains in icu, labs noted, no night sweats or bleeding 06/13 sluggish pupils, remains agitated, per psych, no bleding, on vent, wbc sitll high 06/14 still confused, remains on vent, with ng, running nepro, on pressors 06/15 icu, febrile, non verbal, hgb 7.1, blood pending, completed plaq 06/16 remains in the icu, nonverbal, plan for hd tomorrow, ernesto rn 06/17 in icu, on pressor, nonverbal, on abx, no bleeding 06/19 no bleeding, nonverbal in icu, hgb is 7.7 06/20 on zosyn, tube feeds, vent, labs noted, in icu, nv 06/21 gettng hd as per renal, in icu, nv, no bleeding, tfs 06/22 icu, cxr with slight improvement, cooling blanket, weaning today 06/23 wewaning, in icu, on vent, abx, and pressors as needed, labs noted 06/24 failed weaning, off abx, completed plaquenil, hgb 8.1 06/26 icu, weaning for this am, afebrile, hgb 8 06/27 in icu, remains comotose, weaning started on peep, no night sweats 06/28 weaning today, off abx, restraints, no distress, h/h stable 06/29 covid 19+, failed weaning, no blood transfusion needed 06/30 icu, on vent, labs reviewed, no distress 07/01 in icu, may need trach, remains on hd per renal, labs noted 07/02 s/p right fem cath, failed wean, no new orders, h/h stable 07/03 is somewhat more responsive, on abx, no bleeding, weaning and HD today 07/04 hd as per renal, weaning off vent, no bleeding today 07/05 obtunded, no bleding overnight, with hd for tomorrow noted, vanc 07/08 no events, remains with trach/vent, dw Rn, no bleeding, cbc is noted 07/09 no overnight events, peg for friday pending consent 07/10 off pressors, vent, restraints, labs reviewed 07/11 no acute events is on pressors, intubated, agitated still 07/12 is resting comfortably, no bleeding, emds reviewed and noted Objective Objective Current Medications Medications (Trade) Dose Ordered Sig/Anthony Route PRN Reason Start Time Stop Time Status Last Admin Dose Admin Acetaminophen (Tylenol) 650 mg Q4H PRN NG For Pain 07/11/19 08:00 08/10/19 07:59 07/12/19 14:24 Albuterol Sulfate (Proventil MDI) 2 puff Q4HRT INH 06/06/19 23:00 08/30/19 18:59 07/13/19 08:28 Chlorhexidine Gluconate (Michelle-Hex 2%) 1 applic DAILY@1999 TOPIC 06/07/19 20:00 09/05/19 19:59 07/12/19 21:32 Dextrose (Dextrose 50%) 25 ml Q30M PRN IV Hypoglycemia 06/20/19 19:30 09/18/19 19:29 Dextrose (Dextrose 50%) 50 ml Q30M PRN IV Hypoglycemia 06/20/19 19:30 09/18/19 19:29 Dopamine HCl/ Dextrose 250 ml @ 0 mls/hr Q24H PRN IV For hypotension 06/13/19 08:15 09/11/19 08:14 Enoxaparin Sodium (Lovenox) 30 mg DAILY SUBQ 06/07/19 09:00 08/27/19 08:59 07/11/19 08:39 Epoetin Aftab (Epoetin Aftab(ESRD on dialysis)) 10,000 unit FRI- SUBQ 06/07/19 21:00 08/31/19 20:59 07/12/19 21:49 Fentanyl Citrate 250 ml @ 0 mls/hr Q24H IV 06/24/19 06:00 09/22/19 05:59 07/10/19 21:19 Haloperidol Lactate 5 mg/ Dextrose 56 ml @ 224 mls/hr Q6H PRN IVPB Agitation 07/11/19 15:00 08/25/19 14:59 07/13/19 11:17 Hydralazine HCl (Apresoline) 10 mg Q4H PRN IV Blood pressure over 160 systol 06/07/19 10:15 09/05/19 10:14 Hydromorphone HCl (Dilaudid) 0.5 mg Q3H PRN IVP For Pain 07/11/19 15:00 07/18/19 14:59 Insulin Aspart (NovoLOG) EVERY 6 HOURS SUBQ 06/21/19 00:00 09/19/19 00:00 07/12/19 18:29 Lorazepam (Ativan 2mg/ml 1ml) 0.5 mg Q4H PRN IV For Anxiety 07/11/19 15:00 07/18/19 14:59 07/13/19 11:16 Meropenem 500 mg/ Sodium Chloride 55 ml @ 110 mls/hr Q24H IVPB 07/09/19 18:00 07/14/19 17:59 07/12/19 17:26 Metoclopramide HCl (Reglan) 5 mg Q8H PRN IVP Nausea & Vomiting 06/18/19 12:00 07/18/19 11:59 06/19/19 00:50 Midodrine (Pro-Amatine) 10 mg THREE TIMES A DAY NG 06/09/19 13:00 09/07/19 12:59 07/13/19 11:57 Norepinephrine Bitartrate 8 mg/ Dextrose 283 ml @ 0 mls/hr Q24H IV 06/23/19 23:00 07/23/19 22:59 07/13/19 08:39 Pantoprazole (Protonix) 40 mg DAILY IVP 06/19/19 09:00 07/19/19 08:59 07/13/19 08:35 Sevelamer Carbonate (Renvela) 2,400 mg Q8HR NG 07/11/19 14:00 09/05/19 12:59 07/13/19 05:56 Vancomycin HCl (Vanco rx to dose) 1 ea DAILY PRN MISC Per rx protocol 07/01/19 11:00 07/31/19 10:59 Last 24 Hour Vital Signs Date Time Temp Pulse Resp B/P (MAP) Pulse Ox O2 Delivery O2 Flow Rate FiO2 07/13/19 12:00 106 07/13/19 12:00 104 28 99/63 (75) 100 07/13/19 11:30 102 0 84/53 (63) 100 07/13/19 11:25 100 28 30 07/13/19 11:00 105 26 96/66 (76) 100 07/13/19 09:45 112 34 98 07/13/19 09:30 96 12 104/66 (79) 100 07/13/19 09:15 95 0 100 07/13/19 09:00 95 12 104/73 (83) 100 07/13/19 08:45 94 21 100 07/13/19 08:39 97/56 07/13/19 08:30 94 19 111/73 (86) 100 07/13/19 08:28 100 07/13/19 08:15 92 6 100 07/13/19 08:00 93 37 95/71 (79) 100 07/13/19 08:00 113 07/13/19 08:00 Mechanical Ventilator 07/13/19 08:00 30 07/13/19 07:45 95 15 100 07/13/19 07:30 94 23 90/69 (76) 100 07/13/19 07:14 95 28 100 Mechanical Ventilator 30 99 28 30 07/13/19 07:00 95 20 90/69 (76) 100 07/13/19 07:00 23 97/55 Mechanical Ventilator 30 07/13/19 07:00 97/56 07/13/19 06:51 99.5 07/13/19 06:30 99.5 96 0 94/55 (68) 100 07/13/19 06:00 20 94/56 Mechanical Ventilator 30 07/13/19 06:00 94/55 07/13/19 06:00 98 0 90/57 (68) 100 07/13/19 05:30 99 4 84/67 (73) 100 07/13/19 05:00 20 110/66 Mechanical Ventilator 30 07/13/19 05:00 110/66 07/13/19 05:00 105 15 110/66 (81) 100 07/13/19 04:30 107 20 110/79 (89) 100 07/13/19 04:00 30 07/13/19 04:00 20 112/79 Mechanical Ventilator 30 07/13/19 04:00 112/79 07/13/19 04:00 103 07/13/19 04:00 Mechanical Ventilator 07/13/19 04:00 106 21 112/79 (90) 100 07/13/19 03:30 109 17 100/72 (81) 100 07/13/19 03:13 103 26 100 Mechanical Ventilator 30 101 26 30 07/13/19 03:00 23 110/84 Mechanical Ventilator 30 07/13/19 03:00 110/84 07/13/19 03:00 103 19 110/84 (93) 100 07/13/19 02:30 109 26 107/72 (84) 100 07/13/19 02:00 109 27 135/81 (99) 100 07/13/19 02:00 23 135/81 Mechanical Ventilator 30 07/13/19 02:00 135/81 07/13/19 01:30 109 19 115/77 (90) 100 07/13/19 01:00 100 2 128/84 (99) 100 07/13/19 01:00 18 128/84 Mechanical Ventilator 30 07/13/19 01:00 128/84 07/13/19 00:30 98 9 99/69 (79) 100 07/13/19 00:00 Mechanical Ventilator 07/13/19 00:00 92 07/13/19 00:00 20 117/51 Mechanical Ventilator 30 07/13/19 00:00 117/51 07/13/19 00:00 95 28 144/73 (96) 100 07/13/19 00:00 30 07/12/19 23:30 93 14 100/64 (76) 100 07/12/19 23:10 89 26 100 Mechanical Ventilator 30 92 26 30 07/12/19 23:00 99.4 93 23 128/77 (94) 100 07/12/19 23:00 25 127/83 Mechanical Ventilator 30 07/12/19 23:00 127/83 07/12/19 22:30 87 2 111/58 (75) 100 07/12/19 22:00 84 0 97/67 (77) 100 07/12/19 22:00 20 113/63 Mechanical Ventilator 30 07/12/19 22:00 113/63 07/12/19 21:30 92 27 127/79 (95) 100 07/12/19 21:00 18 85/60 Mechanical Ventilator 30 07/12/19 21:00 85/60 07/12/19 21:00 87 14 101/66 (78) 100 07/12/19 20:30 89 17 101/62 (75) 100 07/12/19 20:00 Mechanical Ventilator 07/12/19 20:00 21 122/78 Mechanical Ventilator 30 07/12/19 20:00 122/78 07/12/19 20:00 30 07/12/19 20:00 92 2 85/62 (70) 100 07/12/19 20:00 93 07/12/19 19:30 98 25 91/67 (75) 100 07/12/19 19:08 115 41 99 Mechanical Ventilator 30 114 38 30 07/12/19 19:00 102 28 105/73 (84) 100 07/12/19 19:00 26 82/55 Mechanical Ventilator 30 07/12/19 19:00 82/55 07/12/19 18:30 109 34 102/68 (79) 100 07/12/19 18:00 94 31 95/61 (72) 100 07/12/19 18:00 30 120/77 Mechanical Ventilator 30 07/12/19 18:00 120/77 07/12/19 17:30 95 31 114/66 (82) 100 07/12/19 17:00 101 21 101/66 (78) 100 07/12/19 17:00 29 82/58 Mechanical Ventilator 30 07/12/19 17:00 82/58 07/12/19 16:45 101/66 07/12/19 16:30 97 25 102/70 (81) 100 07/12/19 16:30 95/71 07/12/19 16:15 102/70 07/12/19 16:00 30 07/12/19 16:00 98.2 93 22 102/70 (81) 100 07/12/19 16:00 28 100/68 Mechanical Ventilator 30 07/12/19 16:00 100/68 07/12/19 16:00 94 07/12/19 16:00 Mechanical Ventilator 07/12/19 15:30 97 17 89/64 (72) 100 07/12/19 15:05 90 26 100 Mechanical Ventilator 30 90 26 30 07/12/19 15:00 88 3 104/62 (76) 100 07/12/19 15:00 23 111/67 Mechanical Ventilator 30 07/12/19 15:00 111/67 07/12/19 14:30 100 26 95/57 (70) 100 07/12/19 14:00 24 100/63 Mechanical Ventilator 30 07/12/19 14:00 100/63 07/12/19 14:00 107 32 109/76 (87) 100 07/12/19 13:45 109/76 07/12/19 13:30 99 20 108/57 (74) 100 07/12/19 13:30 118/72 07/12/19 13:15 108/57 07/12/19 13:00 20 109/65 Mechanical Ventilator 30 07/12/19 13:00 109/65 07/12/19 13:00 103 13 88/57 (67) 100 07/12/19 12:45 88/57 07/12/19 12:30 94/64 07/12/19 12:30 104 17 98/60 (73) 100 07/12/19 12:15 98/60 07/12/19 12:00 30 07/12/19 12:00 15 82/50 Mechanical Ventilator 30 07/12/19 12:00 82/50 07/12/19 12:00 105 07/12/19 12:00 99.4 107 11 115/54 (74) 100 07/12/19 12:00 Mechanical Ventilator 07/12/19 11:30 103 12 113/76 (88) 100 07/12/19 11:15 100 07/12/19 11:10 105 28 100 Mechanical Ventilator 30 105 28 30 07/12/19 11:00 20 105/72 Mechanical Ventilator 30 07/12/19 11:00 105/72 6/1/20 11:00 103 20 106/62 (77) 100 07/12/19 10:45 106/62 07/12/19 10:30 104 16 98/65 (76) 100 07/12/19 10:30 80/58 07/12/19 10:15 98/65 07/12/19 10:00 111 20 89/57 (68) 100 07/12/19 10:00 20 89/57 Mechanical Ventilator 30 07/12/19 10:00 89/57 07/12/19 09:30 106 27 127/77 (94) 100 07/12/19 09:00 109 27 105/61 (76) 100 07/12/19 09:00 26 111/70 Mechanical Ventilator 30 07/12/19 09:00 111/70 07/12/19 08:30 110 26 112/63 (79) 100 07/12/19 08:00 99.2 112 26 113/62 (79) 99 07/12/19 08:00 Mechanical Ventilator 07/12/19 08:00 30 07/12/19 08:00 24 94/63 Mechanical Ventilator 30 07/12/19 08:00 94/63 07/12/19 08:00 126 07/12/19 07:30 119 30 133/76 (95) 100 07/12/19 07:05 119 34 99 Mechanical Ventilator 30 119 34 30 07/12/19 07:00 30 122/73 Mechanical Ventilator 30 07/12/19 07:00 122/73 07/12/19 07:00 99.5 120 9 117/78 (91) 100 07/12/19 06:30 117 9 108/63 (78) 100 07/12/19 06:30 117 26 07/12/19 06:15 113 18 108/63 (78) 100 07/12/19 06:00 30 108/63 Mechanical Ventilator 30 07/12/19 06:00 108/63 07/12/19 06:00 113 0 86/58 (67) 100 07/12/19 05:57 114 0 103/60 (74) 100 07/12/19 05:45 116 17 129/66 (87) 100 07/12/19 05:30 101.5 117 11 109/63 (78) 100 07/12/19 05:15 112 26 113/69 (84) 100 07/12/19 05:00 113 30 114/71 (85) 100 07/12/19 05:00 27 113/69 Mechanical Ventilator 30 07/12/19 05:00 113/69 07/12/19 04:45 112 32 115/64 (81) 100 07/12/19 04:30 114 30 123/66 (85) 100 07/12/19 04:15 115 27 112/61 (78) 100 07/12/19 04:00 118 25 136/71 (92) 98 07/12/19 04:00 30 07/12/19 04:00 28 136/71 Mechanical Ventilator 30 07/12/19 04:00 136/71 07/12/19 04:00 Mechanical Ventilator 07/12/19 04:00 113 07/12/19 03:45 111 29 101/59 (73) 100 07/12/19 03:30 112 30 116/65 (82) 100 07/12/19 03:30 112 29 100 Mechanical Ventilator 30 114 28 30 07/12/19 03:00 33 92/59 Mechanical Ventilator 30 07/12/19 03:00 92/59 07/12/19 03:00 119 31 92/59 (70) 100 07/12/19 02:45 120 27 104/61 (75) 100 07/12/19 02:30 122 31 100/69 (79) 100 07/12/19 02:15 121 34 91/55 (67) 100 07/12/19 02:00 32 91/55 Mechanical Ventilator 30 07/12/19 02:00 124/75 07/12/19 02:00 121 28 89/58 (68) 100 07/12/19 01:45 127 38 124/75 (91) 100 07/12/19 01:30 125 31 133/70 (91) 100 07/12/19 01:18 104/80 07/12/19 01:15 127 33 107/53 (71) 100 07/12/19 01:00 34 107/53 Mechanical Ventilator 30 07/12/19 01:00 107/53 07/12/19 01:00 124 28 104/69 (81) 100 07/12/19 00:45 119 34 144/89 (107) 100 07/12/19 00:30 118 32 155/128 (137) 100 07/12/19 00:15 117 33 148/74 (98) 100 07/12/19 00:00 114 30 131/72 (91) 100 07/12/19 00:00 33 148/74 Mechanical Ventilator 30 07/12/19 00:00 148/74 07/12/19 00:00 111 07/12/19 00:00 Mechanical Ventilator 07/11/19 23:45 115 33 138/79 (98) 100 07/11/19 23:30 113 29 100 Mechanical Ventilator 30 115 30 30 07/11/19 23:30 117 33 145/80 (101) 100 07/11/19 23:15 112 21 136/86 (103) 100 07/11/19 23:00 30 144/77 Mechanical Ventilator 30 07/11/19 23:00 144/77 07/11/19 23:00 144/77 07/11/19 23:00 114 33 144/77 (99) 100 07/11/19 22:30 110 27 135/79 (97) 100 07/11/19 22:00 29 137/67 Mechanical Ventilator 30 07/11/19 22:00 137/67 07/11/19 22:00 113 31 137/67 (90) 100 07/11/19 21:30 104 30 139/73 (95) 100 07/11/19 21:00 97 26 98/59 (72) 100 07/11/19 21:00 30 98/59 Mechanical Ventilator 30 07/11/19 21:00 98/59 07/11/19 20:30 108 13 130/69 (89) 100 07/11/19 20:00 110 07/11/19 20:00 30 99/60 Mechanical Ventilator 30 07/11/19 20:00 99/60 07/11/19 20:00 Mechanical Ventilator 07/11/19 20:00 104 28 123/61 (81) 100 07/11/19 20:00 30 07/11/19 19:30 105 27 100 Mechanical Ventilator 30 106 27 30 07/11/19 19:30 101 26 128/69 (88) 100 07/11/19 19:00 20 93/59 Mechanical Ventilator 30 07/11/19 19:00 93/59 07/11/19 19:00 99.0 104 15 93/59 (70) 100 07/11/19 18:30 105 17 114/65 (81) 100 07/11/19 18:00 20 82/53 Mechanical Ventilator 30 07/11/19 18:00 82/53 07/11/19 18:00 98 0 82/53 (63) 100 07/11/19 17:30 107 0 98/61 (73) 100 07/11/19 17:30 98/61 07/11/19 17:15 85/50 07/11/19 17:00 20 79/46 Mechanical Ventilator 30 07/11/19 17:00 79/46 07/11/19 17:00 104 0 79/46 (57) 100 07/11/19 16:45 102/52 07/11/19 16:30 111 25 109/66 (80) 100 07/11/19 16:30 109/66 07/11/19 16:15 67/49 07/11/19 16:00 99.3 113 22 91/56 (68) 100 07/11/19 16:00 19 65/48 Mechanical Ventilator 07/11/19 16:00 65/48 07/11/19 16:00 106 07/11/19 16:00 Mechanical Ventilator 07/11/19 16:00 113 22 91/56 (68) 100 07/11/19 16:00 30 07/11/19 15:30 108 22 102/52 (69) 100 07/11/19 15:00 113 22 106/62 (77) 100 07/11/19 15:00 25 89/57 Mechanical Ventilator 07/11/19 15:00 106/62 07/11/19 14:53 109 26 100 Mechanical Ventilator 30 109 26 30 07/11/19 14:30 112 25 111/65 (80) 100 07/11/19 14:00 25 104/65 Mechanical Ventilator 30 07/11/19 14:00 104/65 07/11/19 14:00 111 25 104/65 (78) 100 07/11/19 13:30 110 27 103/61 (75) 100 07/11/19 13:00 105 6 99/65 (76) 100 07/11/19 13:00 20 99/65 Mechanical Ventilator 30 07/11/19 13:00 99/65 Intake and Output 07/12/19 07/13/19 19:00 07:00 Intake Total 721.970 ml 458.85 ml Output Total 1000 ml 0 ml Balance -278.030 ml 458.85 ml Free Water 150 ml 210 ml IV Total 291.970 ml 108.85 ml Tube Feeding 280 ml 140 ml Output Urine Total 0 ml 0 ml Hemodialysis UF 1000 ml # Bowel Movements 4 3 Labs Test 07/11/19 05:30 07/12/19 05:30 07/13/19 08:45 White Blood Count 18.5 K/UL (4.8-10.8) 17.5 K/UL (4.8-10.8) 16.8 K/UL (4.8-10.8) Red Blood Count 3.72 M/UL (4.70-6.10) 3.38 M/UL (4.70-6.10) 3.35 M/UL (4.70-6.10) Hemoglobin 10.7 G/DL (14.2-18.0) 9.8 G/DL (14.2-18.0) 9.8 G/DL (14.2-18.0) Hematocrit 34.3 % (42.0-52.0) 30.7 % (42.0-52.0) 29.7 % (42.0-52.0) Mean Corpuscular Volume 92 FL (80-99) 91 FL (80-99) 89 FL (80-99) Mean Corpuscular Hemoglobin 28.9 PG (27.0-31.0) 29.1 PG (27.0-31.0) 29.3 PG (27.0-31.0) Mean Corpuscular Hemoglobin Concent 31.3 G/DL (32.0-36.0) 32.0 G/DL (32.0-36.0) 33.0 G/DL (32.0-36.0) Red Cell Distribution Width 16.4 % (11.6-14.8) 16.0 % (11.6-14.8) 15.5 % (11.6-14.8) Platelet Count 447 K/UL (150-450) 466 K/UL (150-450) 425 K/UL (150-450) Mean Platelet Volume 6.0 FL (6.5-10.1) 6.3 FL (6.5-10.1) 7.0 FL (6.5-10.1) Neutrophils (%) (Auto) % (45.0-75.0) 76.6 % (45.0-75.0) 80.1 % (45.0-75.0) Lymphocytes (%) (Auto) % (20.0-45.0) 13.4 % (20.0-45.0) 10.8 % (20.0-45.0) Monocytes (%) (Auto) % (1.0-10.0) 7.8 % (1.0-10.0) 6.7 % (1.0-10.0) Eosinophils (%) (Auto) % (0.0-3.0) 1.3 % (0.0-3.0) 1.4 % (0.0-3.0) Basophils (%) (Auto) % (0.0-2.0) 0.8 % (0.0-2.0) 1.0 % (0.0-2.0) Differential Total Cells Counted 100 Neutrophils % (Manual) 72 % (45-75) Lymphocytes % (Manual) 16 % (20-45) Monocytes % (Manual) 9 % (1-10) Eosinophils % (Manual) 3 % (0-3) Basophils % (Manual) 0 % (0-2) Band Neutrophils 0 % (0-8) Platelet Estimate Adequate Platelet Morphology Normal Polychromasia 1+ Hypochromasia 1+ Anisocytosis 1+ Sodium Level 143 MMOL/L (136-145) 143 MMOL/L (136-145) 140 MMOL/L (136-145) Potassium Level 5.0 MMOL/L (3.5-5.1) 4.9 MMOL/L (3.5-5.1) 4.2 MMOL/L (3.5-5.1) Chloride Level 99 MMOL/L (98-107) 99 MMOL/L (98-107) 94 MMOL/L (98-107) Carbon Dioxide Level 24 MMOL/L (21-32) 25 MMOL/L (21-32) 29 MMOL/L (21-32) Anion Gap 20 mmol/L (5-15) 19 mmol/L (5-15) 17 mmol/L (5-15) Blood Urea Nitrogen 97 mg/dL (7-18) 117 mg/dL (7-18) 71 mg/dL (7-18) Creatinine 12.2 MG/DL (0.55-1.30) 13.8 MG/DL (0.55-1.30) 9.5 MG/DL (0.55-1.30) Estimat Glomerular Filtration Rate 4.2 mL/min (>60) 3.6 mL/min (>60) 5.6 mL/min (>60) Glucose Level 363 MG/DL (74-106) 293 MG/DL (74-106) 174 MG/DL (74-106) Calcium Level 10.5 MG/DL (8.5-10.1) 9.8 MG/DL (8.5-10.1) 9.6 MG/DL (8.5-10.1) Phosphorus Level 6.7 MG/DL (2.5-4.9) 4.9 MG/DL (2.5-4.9) Magnesium Level 3.2 MG/DL (1.8-2.4) 3.3 MG/DL (1.8-2.4) Total Bilirubin 0.4 MG/DL (0.2-1.0) 0.5 MG/DL (0.2-1.0) 0.6 MG/DL (0.2-1.0) Aspartate Amino Transf (AST/SGOT) 16 U/L (15-37) 27 U/L (15-37) 30 U/L (15-37) Alanine Aminotransferase (ALT/SGPT) 20 U/L (12-78) 12 U/L (12-78) 19 U/L (12-78) Alkaline Phosphatase 131 U/L (46-116) 124 U/L (46-116) 104 U/L (46-116) C-Reactive Protein, Quantitative 13.8 mg/dL (0.00-0.90) Total Protein 10.6 G/DL (6.4-8.2) 9.8 G/DL (6.4-8.2) 10.6 G/DL (6.4-8.2) Albumin 3.3 G/DL (3.4-5.0) 3.0 G/DL (3.4-5.0) 3.5 G/DL (3.4-5.0) Globulin 7.3 g/dL 7.1 g/dL Albumin/Globulin Ratio 0.5 (1.0-2.7) 0.5 (1.0-2.7) Direct Bilirubin 0.2 MG/DL (0.0-0.3) Random Vancomycin Level 28.0 ug/mL Prothrombin Time 12.2 SEC (9.30-11.50) Prothromb Time International Ratio 1.1 (0.9-1.1) Activated Partial Thromboplast Time 26 SEC (23-33) Height (Feet): 6 Height (Inches): 1.00 Weight (Pounds): 147 Objective Sp02 EP Interpretation: reviewed General: nv, confused, sedated Heent: bilateral eye normal inspection, bilateral eye PERRL ++Ng Respiratory: normal breath sounds, no respiratory distress, intubated/vent +++ trach+++ Cardiovascular: regular rate, rhythm, no edema Gastrointestinal: normal inspection, soft, non-distended Rectal: deferred Musculoskeletal: normal range of motion, non-tender, R fem cath++ Neurologic: alert, motor strength/tone normal, sensory intact, responsive, speech normal Skin: Decubitus/Ulcer - See RN skin exam. : jamaal+ Greg Cabral MD Jul 13, 2019 12:47
[2019-07-13] MEDS ORDERED: NS 55ml IV ONE (13:06)
[2019-07-13] MEDS ORDERED: Lidocaine 1% MPF 10mg/ml 5ml ONE (13:06)
--- NOTE | 2019-07-13 13:07 | Anethesia Preoperative Eval ---
Anesthesia Pre-op PMH/ROS General Date of Evaluation: Jul 13, 2019 Time of Evaluation: 13:06 Anesthesiologist: castro ASA Score: ASA 4 Mallampati Score Class I : Soft palate, uvula, fauces, pillars visible Class II: Soft palate, uvula, fauces visible Class III: Soft palate, base of uvula visible Class IV: Only hard plate visible Mallampati Classification: Class II Surgeon: pancho Diagnosis: dysphagia, ftt Surgical Procedure: peg Anesthesia History: none Social History: smoking - nonsmoker Family History: no anesthesia problems Allergies: Coded Allergies: No Known Allergies (Unverified , 05/28/19) Medications: see eMAR Patient NPO?: Yes Past Medical History Cardiovascular: Reports: HTN Pulmonary: Reports: COPD, other - respiratory failure, ventilator dependent, tracheostomy, covid-19 positive Gastrointestinal/Genitourinary: Reports: CRI, other - hep c Neurologic/Psychiatric: Reports: dementia Endocrine: Reports: DM Anesthesia Pre-op Phys. Exam Physician Exam Last Vital Signs Date Time Temp Pulse Resp B/P (MAP) Pulse Ox O2 Delivery O2 Flow Rate FiO2 07/13/19 12:00 30 07/13/19 12:00 106 07/13/19 12:00 Mechanical Ventilator 07/13/19 12:00 28 99/63 (75) 100 07/13/19 06:51 99.5 07/09/19 18:00 10.0 Constitutional: NAD Neurologic: other - obtunded Cardiovascular: other Respiratory: other Gastrointestinal: S/NT/ND Airway Exam Mallampati Score: Class II MO: limited Neck: tracheostomy TMD: 2fb ROM: limited Anesthesia Pre-op A/P Labs Hematology Test 07/13/19 08:45 White Blood Count 16.8 K/UL (4.8-10.8) H Red Blood Count 3.35 M/UL (4.70-6.10) L Hemoglobin 9.8 G/DL (14.2-18.0) L Hematocrit 29.7 % (42.0-52.0) L Mean Corpuscular Volume 89 FL (80-99) Mean Corpuscular Hemoglobin 29.3 PG (27.0-31.0) Mean Corpuscular Hemoglobin Concent 33.0 G/DL (32.0-36.0) Red Cell Distribution Width 15.5 % (11.6-14.8) H Platelet Count 425 K/UL (150-450) Mean Platelet Volume 7.0 FL (6.5-10.1) Neutrophils (%) (Auto) 80.1 % (45.0-75.0) H Lymphocytes (%) (Auto) 10.8 % (20.0-45.0) L Monocytes (%) (Auto) 6.7 % (1.0-10.0) Eosinophils (%) (Auto) 1.4 % (0.0-3.0) Basophils (%) (Auto) 1.0 % (0.0-2.0) Coagulation Test 07/13/19 08:45 Prothrombin Time 12.2 SEC (9.30-11.50) H Prothromb Time International Ratio 1.1 (0.9-1.1) Activated Partial Thromboplast Time 26 SEC (23-33) Chemistry Test 07/13/19 08:45 Sodium Level 140 MMOL/L (136-145) Potassium Level 4.2 MMOL/L (3.5-5.1) Chloride Level 94 MMOL/L (98-107) L Carbon Dioxide Level 29 MMOL/L (21-32) Anion Gap 17 mmol/L (5-15) H Blood Urea Nitrogen 71 mg/dL (7-18) H Creatinine 9.5 MG/DL (0.55-1.30) H Estimat Glomerular Filtration Rate 5.6 mL/min (>60) Glucose Level 174 MG/DL (74-106) #H Calcium Level 9.6 MG/DL (8.5-10.1) Total Bilirubin 0.6 MG/DL (0.2-1.0) Aspartate Amino Transf (AST/SGOT) 30 U/L (15-37) Alanine Aminotransferase (ALT/SGPT) 19 U/L (12-78) Alkaline Phosphatase 104 U/L (46-116) Total Protein 10.6 G/DL (6.4-8.2) H Albumin 3.5 G/DL (3.4-5.0) Globulin 7.1 g/dL Albumin/Globulin Ratio 0.5 (1.0-2.7) L Risk Assessment & Plan Assessment: [email or web address] Plan: mac Status Change Before Surgery: No Pre-Antibiotics Drug: Romy Butler MD Jul 13, 2019 13:07
[2019-07-13] MEDS ORDERED: fentaNYL 100 mcg/2 mL IV PRN (13:15)
[2019-07-13] MEDS ORDERED: Atropine Inj 1mg/10ml Syr IV PRN (13:15)
[2019-07-13] MEDS ORDERED: Midazolam 2mg/2ml Inj IVP PRN (13:15)
[2019-07-13] MEDS ORDERED: DiphenhydrAMINE 50mg/ml Inj IVP PRN (13:15)
--- NOTE | 2019-07-13 13:15 | Cardiac Electrophysiology PN ---
Assessment/Plan Assessment/Plan 1. Elevated troponin. Low level and flat due to renal failure. On Aspirin. EF 60 %. 2. S/P Septic shock. On midodrine and Levo 3. ESRD, on HD per Dr. Cole. 4. COVID-19 positive pneumonia. On the Vent with 30% Fio2. S/P Tracheostomy 07/08/19 5. MRSA carrier. 6. COPD. 7. Anemia. 8. Dysphagia, PEG today pending DW RN Subjective Subjective Covid positive x 3 PNA in ICU, on 30% Fio2, PEEP 5. On Levo 2 Mcg and midodrine. S/P Tracheostomy, PEG pending today by Dr Ramires. HD yesterday Just underwent Left IG HD catheter placement Objective Last 24 Hour Vital Signs Date Time Temp Pulse Resp B/P (MAP) Pulse Ox O2 Delivery O2 Flow Rate FiO2 07/13/19 12:00 30 07/13/19 12:00 106 07/13/19 12:00 Mechanical Ventilator 07/13/19 12:00 104 28 99/63 (75) 100 07/13/19 11:30 102 0 84/53 (63) 100 07/13/19 11:25 100 28 30 07/13/19 11:00 105 26 96/66 (76) 100 07/13/19 09:45 112 34 98 07/13/19 09:30 96 12 104/66 (79) 100 07/13/19 09:15 95 0 100 07/13/19 09:00 95 12 104/73 (83) 100 07/13/19 08:45 94 21 100 07/13/19 08:39 97/56 07/13/19 08:30 94 19 111/73 (86) 100 07/13/19 08:28 100 07/13/19 08:15 92 6 100 07/13/19 08:00 93 37 95/71 (79) 100 07/13/19 08:00 113 07/13/19 08:00 Mechanical Ventilator 07/13/19 08:00 30 07/13/19 07:45 95 15 100 07/13/19 07:30 94 23 90/69 (76) 100 07/13/19 07:14 95 28 100 Mechanical Ventilator 30 99 28 30 07/13/19 07:00 95 20 90/69 (76) 100 07/13/19 07:00 23 97/55 Mechanical Ventilator 30 07/13/19 07:00 97/56 07/13/19 06:51 99.5 07/13/19 06:30 99.5 96 0 94/55 (68) 100 07/13/19 06:00 20 94/56 Mechanical Ventilator 30 07/13/19 06:00 94/55 07/13/19 06:00 98 0 90/57 (68) 100 07/13/19 05:30 99 4 84/67 (73) 100 07/13/19 05:00 20 110/66 Mechanical Ventilator 30 07/13/19 05:00 110/66 07/13/19 05:00 105 15 110/66 (81) 100 07/13/19 04:30 107 20 110/79 (89) 100 07/13/19 04:00 30 07/13/19 04:00 20 112/79 Mechanical Ventilator 30 07/13/19 04:00 112/79 07/13/19 04:00 103 07/13/19 04:00 Mechanical Ventilator 07/13/19 04:00 106 21 112/79 (90) 100 07/13/19 03:30 109 17 100/72 (81) 100 07/13/19 03:13 103 26 100 Mechanical Ventilator 30 101 26 30 07/13/19 03:00 23 110/84 Mechanical Ventilator 07/13/19 03:00 110/84 07/13/19 03:00 103 19 110/84 (93) 100 07/13/19 02:30 109 26 107/72 (84) 100 07/13/19 02:00 109 27 135/81 (99) 100 07/13/19 02:00 23 135/81 Mechanical Ventilator 30 07/13/19 02:00 135/81 07/13/19 01:30 109 19 115/77 (90) 100 07/13/19 01:00 100 2 128/84 (99) 100 07/13/19 01:00 18 128/84 Mechanical Ventilator 30 07/13/19 01:00 128/84 07/13/19 00:30 98 9 99/69 (79) 100 07/13/19 00:00 Mechanical Ventilator 07/13/19 00:00 92 07/13/19 00:00 20 117/51 Mechanical Ventilator 30 07/13/19 00:00 117/51 07/13/19 00:00 95 28 144/73 (96) 100 07/13/19 00:00 30 07/12/19 23:30 93 14 100/64 (76) 100 07/12/19 23:10 89 26 100 Mechanical Ventilator 30 92 26 30 07/12/19 23:00 99.4 93 23 128/77 (94) 100 07/12/19 23:00 25 127/83 Mechanical Ventilator 30 07/12/19 23:00 127/83 07/12/19 22:30 87 2 111/58 (75) 100 07/12/19 22:00 84 0 97/67 (77) 100 07/12/19 22:00 20 113/63 Mechanical Ventilator 30 07/12/19 22:00 113/63 07/12/19 21:30 92 27 127/79 (95) 100 07/12/19 21:00 18 85/60 Mechanical Ventilator 30 07/12/19 21:00 85/60 07/12/19 21:00 87 14 101/66 (78) 100 07/12/19 20:30 89 17 101/62 (75) 100 07/12/19 20:00 Mechanical Ventilator 07/12/19 20:00 21 122/78 Mechanical Ventilator 30 07/12/19 20:00 122/78 07/12/19 20:00 30 07/12/19 20:00 92 2 85/62 (70) 100 07/12/19 20:00 93 07/12/19 19:30 98 25 91/67 (75) 100 07/12/19 19:08 115 41 99 Mechanical Ventilator 30 114 38 30 07/12/19 19:00 102 28 105/73 (84) 100 07/12/19 19:00 26 82/55 Mechanical Ventilator 30 07/12/19 19:00 82/55 07/12/19 18:30 109 34 102/68 (79) 100 07/12/19 18:00 94 31 95/61 (72) 100 07/12/19 18:00 30 120/77 Mechanical Ventilator 30 07/12/19 18:00 120/77 07/12/19 17:30 95 31 114/66 (82) 100 07/12/19 17:00 101 21 101/66 (78) 100 07/12/19 17:00 29 82/58 Mechanical Ventilator 30 07/12/19 17:00 82/58 07/12/19 16:45 101/66 07/12/19 16:30 97 25 102/70 (81) 100 07/12/19 16:30 95/71 07/12/19 16:15 102/70 07/12/19 16:00 30 07/12/19 16:00 98.2 93 22 102/70 (81) 100 07/12/19 16:00 28 100/68 Mechanical Ventilator 30 07/12/19 16:00 100/68 07/12/19 16:00 94 07/12/19 16:00 Mechanical Ventilator 07/12/19 15:30 97 17 89/64 (72) 100 07/12/19 15:05 90 26 100 Mechanical Ventilator 30 90 26 30 07/12/19 15:00 88 3 104/62 (76) 100 07/12/19 15:00 23 111/67 Mechanical Ventilator 30 07/12/19 15:00 111/67 07/12/19 14:30 100 26 95/57 (70) 100 07/12/19 14:00 24 100/63 Mechanical Ventilator 30 07/12/19 14:00 100/63 07/12/19 14:00 107 32 109/76 (87) 100 07/12/19 13:45 109/76 07/12/19 13:30 99 20 108/57 (74) 100 07/12/19 13:30 118/72 07/12/19 13:15 108/57 Intake and Output 07/12/19 07/13/19 19:00 07:00 Intake Total 721.970 ml 458.85 ml Output Total 1000 ml 0 ml Balance -278.030 ml 458.85 ml Free Water 150 ml 210 ml IV Total 291.970 ml 108.85 ml Tube Feeding 280 ml 140 ml Output Urine Total 0 ml 0 ml Hemodialysis UF 1000 ml # Bowel Movements 4 3 Laboratory Tests Test 07/13/19 08:45 White Blood Count 16.8 K/UL (4.8-10.8) H Red Blood Count 3.35 M/UL (4.70-6.10) L Hemoglobin 9.8 G/DL (14.2-18.0) L Hematocrit 29.7 % (42.0-52.0) L Mean Corpuscular Volume 89 FL (80-99) Mean Corpuscular Hemoglobin 29.3 PG (27.0-31.0) Mean Corpuscular Hemoglobin Concent 33.0 G/DL (32.0-36.0) Red Cell Distribution Width 15.5 % (11.6-14.8) H Platelet Count 425 K/UL (150-450) Mean Platelet Volume 7.0 FL (6.5-10.1) Neutrophils (%) (Auto) 80.1 % (45.0-75.0) H Lymphocytes (%) (Auto) 10.8 % (20.0-45.0) L Monocytes (%) (Auto) 6.7 % (1.0-10.0) Eosinophils (%) (Auto) 1.4 % (0.0-3.0) Basophils (%) (Auto) 1.0 % (0.0-2.0) Prothrombin Time 12.2 SEC (9.30-11.50) H Prothromb Time International Ratio 1.1 (0.9-1.1) Activated Partial Thromboplast Time 26 SEC (23-33) Sodium Level 140 MMOL/L (136-145) Potassium Level 4.2 MMOL/L (3.5-5.1) Chloride Level 94 MMOL/L (98-107) L Carbon Dioxide Level 29 MMOL/L (21-32) Anion Gap 17 mmol/L (5-15) H Blood Urea Nitrogen 71 mg/dL (7-18) H Creatinine 9.5 MG/DL (0.55-1.30) H Estimat Glomerular Filtration Rate 5.6 mL/min (>60) Glucose Level 174 MG/DL (74-106) #H Calcium Level 9.6 MG/DL (8.5-10.1) Total Bilirubin 0.6 MG/DL (0.2-1.0) Aspartate Amino Transf (AST/SGOT) 30 U/L (15-37) Alanine Aminotransferase (ALT/SGPT) 19 U/L (12-78) Alkaline Phosphatase 104 U/L (46-116) Total Protein 10.6 G/DL (6.4-8.2) H Albumin 3.5 G/DL (3.4-5.0) Globulin 7.1 g/dL Albumin/Globulin Ratio 0.5 (1.0-2.7) L Microbiology Date/Time Source Procedure Growth Status 07/11/19 13:14 Blood Blood Culture - Preliminary NO GROWTH AFTER 24 HOURS Resulted Objective HEAD AND NECK: No JVD. Tracheostomy in place. Left IJ HD catheter now in place LUNGS: Decreased breath sounds. CARDIOVASCULAR: Regular S1 and S2. Tachycardic. ABDOMEN: Soft. EXTREMITIES: No pitting edema. Left FV Gio Engle MD Jul 13, 2019 13:15
--- NOTE | 2019-07-13 13:19 | Endoscopy Procedure Note ---
Endoscopy Procedure Note General Indication for Procedure: dysphagia Procedures Performed: EGD, PEG Operative Findings/Diagnosis: same Specimen: none Pt Tolerated Procedure Well: Yes Estimated Blood Loss: none Anesthesia Anesthesiologist: leticia Anesthesia: MAC Inserted Devices Implant(s) used?: No GI Core Measures 50 yrs or older w/o bx or poly: Not Applicable 10yrs. F/U recommended: Not Applicable Marito Ramires MD Jul 13, 2019 13:19
--- NOTE | 2019-07-13 14:12 | Diagnostic Imaging Report ---
Indication: Post central line placement Technique: One view of the chest Comparison: 07/12/2019 Findings: Interim placement left jugular central venous catheter, tip of which projects at the level of the innominate venous confluence. No pneumothorax. Left jugular central venous catheter again demonstrated. Infiltrates in the right lung appears slightly improved. The heart size is normal. Tracheostomy, nasogastric tube remain Impression: Satisfactory placement right jugular temporary dialysis catheter. No radiographically evident complication Improved right lung infiltrates. Other stable findings as described
--- NOTE | 2019-07-13 14:17 | Immediate Post-Op Evaluation ---
Immediate Post-Op Evalulation Immediate Post-Op Evalulation Procedure: egd/peg Date of Evaluation: Jul 13, 2019 Time of Evaluation: 13:45 IV Fluids: 50ml 0.9ns Blood Products: none Estimated Blood Loss: negligible Blood Pressure Systolic: 123 Blood Pressure Diastolic: 70 Pulse Rate: 97 Respiratory Rate: 26 O2 Sat by Pulse Oximetry: 100 Temperature (Fahrenheit): 99.5 Pain Score (1-10): 0 Nausea: No Vomiting: No Complications none Patient Status: awake, reacts, patent, ventilated Hydration Status: adequate Drug: Romy Butler MD Jul 13, 2019 14:17
--- NOTE | 2019-07-13 14:18 | 48 Hour Post Anesthesia Eval ---
Post Anesthesia Evaluation Procedure: egd/peg Date of Evaluation: Jul 13, 2019 Time of Evaluation: 13:47 Blood Pressure Systolic: 120 0: 72 Pulse Rate: 102 Respiratory Rate: 26 Temperature (Fahrenheit): 99.5 O2 Sat by Pulse Oximetry: 100 Airway: patent Nausea: No Vomiting: No Pain Intensity: 0 Hydration Status: adequate Cardiopulmonary Status: stable Mental Status/LOC: patient returned to baseline Post-Anesthesia Complications: none Follow-up care needed: N/A Romy Coffman MD Jul 13, 2019 14:18
--- NOTE | 2019-07-13 15:30 | Surgery Progress Note ---
Surgery Progress Note Subjective Procedure Performed tracheostomy Additional Comments left IJ line placed for HD leukocytosis micro noted Objective Last 24 Hour Vital Signs Date Time Temp Pulse Resp B/P (MAP) Pulse Ox O2 Delivery O2 Flow Rate FiO2 07/13/19 15:00 104 27 116/65 (82) 100 07/13/19 14:18 102 26 100 07/13/19 14:17 97 26 100 07/13/19 14:00 27 111/65 Mechanical Ventilator 30 07/13/19 14:00 111/65 07/13/19 14:00 102 28 111/65 (80) 100 07/13/19 13:30 102 28 120/72 (88) 100 07/13/19 13:00 101 15 114/71 (85) 100 07/13/19 13:00 20 114/71 Mechanical Ventilator 30 07/13/19 13:00 114/71 07/13/19 12:30 102 27 99/59 (72) 100 07/13/19 12:00 30 07/13/19 12:00 106 07/13/19 12:00 Mechanical Ventilator 07/13/19 12:00 16 100/59 Mechanical Ventilator 30 07/13/19 12:00 100/59 07/13/19 12:00 104 28 99/63 (75) 100 07/13/19 11:30 102 0 84/53 (63) 100 07/13/19 11:25 100 28 30 07/13/19 11:00 105 26 96/66 (76) 100 07/13/19 11:00 24 84/53 Mechanical Ventilator 30 07/13/19 11:00 84/53 07/13/19 10:30 99.5 07/13/19 10:00 26 120/72 Mechanical Ventilator 30 07/13/19 10:00 26 120/72 Mechanical Ventilator 10.0 30 07/13/19 10:00 106/70 07/13/19 09:45 112 34 98 07/13/19 09:30 96 12 104/66 (79) 100 07/13/19 09:15 95 0 100 07/13/19 09:00 15 104/66 Mechanical Ventilator 30 07/13/19 09:00 104/66 07/13/19 09:00 95 12 104/73 (83) 100 07/13/19 08:45 94 21 100 07/13/19 08:39 97/56 07/13/19 08:30 94 19 111/73 (86) 100 07/13/19 08:28 100 07/13/19 08:15 92 6 100 07/13/19 08:00 93 37 95/71 (79) 100 07/13/19 08:00 113 07/13/19 08:00 14 117/73 Mechanical Ventilator 30 07/13/19 08:00 117/73 07/13/19 08:00 Mechanical Ventilator 07/13/19 08:00 30 07/13/19 07:45 95 15 100 07/13/19 07:30 94 23 90/69 (76) 100 07/13/19 07:14 95 28 100 Mechanical Ventilator 30 99 28 30 07/13/19 07:00 95 20 90/69 (76) 100 07/13/19 07:00 23 97/55 Mechanical Ventilator 30 07/13/19 07:00 97/56 07/13/19 06:51 99.5 07/13/19 06:30 99.5 96 0 94/55 (68) 100 07/13/19 06:00 20 94/56 Mechanical Ventilator 30 07/13/19 06:00 94/55 07/13/19 06:00 98 0 90/57 (68) 100 07/13/19 05:30 99 4 84/67 (73) 100 07/13/19 05:00 20 110/66 Mechanical Ventilator 30 07/13/19 05:00 110/66 07/13/19 05:00 105 15 110/66 (81) 100 07/13/19 04:30 107 20 110/79 (89) 100 07/13/19 04:00 30 07/13/19 04:00 20 112/79 Mechanical Ventilator 30 07/13/19 04:00 112/79 07/13/19 04:00 103 07/13/19 04:00 Mechanical Ventilator 07/13/19 04:00 106 21 112/79 (90) 100 07/13/19 03:30 109 17 100/72 (81) 100 07/13/19 03:13 103 26 100 Mechanical Ventilator 30 101 26 30 07/13/19 03:00 23 110/84 Mechanical Ventilator 30 07/13/19 03:00 110/84 07/13/19 03:00 103 19 110/84 (93) 100 07/13/19 02:30 109 26 107/72 (84) 100 07/13/19 02:00 109 27 135/81 (99) 100 07/13/19 02:00 23 135/81 Mechanical Ventilator 30 07/13/19 02:00 135/81 07/13/19 01:30 109 19 115/77 (90) 100 07/13/19 01:00 100 2 128/84 (99) 100 07/13/19 01:00 18 128/84 Mechanical Ventilator 30 07/13/19 01:00 128/84 07/13/19 00:30 98 9 99/69 (79) 100 07/13/19 00:00 Mechanical Ventilator 07/13/19 00:00 92 07/13/19 00:00 20 117/51 Mechanical Ventilator 30 07/13/19 00:00 117/51 07/13/19 00:00 95 28 144/73 (96) 100 07/13/19 00:00 30 07/12/19 23:30 93 14 100/64 (76) 100 07/12/19 23:10 89 26 100 Mechanical Ventilator 30 92 26 30 07/12/19 23:00 99.4 93 23 128/77 (94) 100 07/12/19 23:00 25 127/83 Mechanical Ventilator 30 07/12/19 23:00 127/83 07/12/19 22:30 87 2 111/58 (75) 100 07/12/19 22:00 84 0 97/67 (77) 100 07/12/19 22:00 20 113/63 Mechanical Ventilator 30 07/12/19 22:00 113/63 07/12/19 21:30 92 27 127/79 (95) 100 07/12/19 21:00 18 85/60 Mechanical Ventilator 30 07/12/19 21:00 85/60 07/12/19 21:00 87 14 101/66 (78) 100 07/12/19 20:30 89 17 101/62 (75) 100 07/12/19 20:00 Mechanical Ventilator 07/12/19 20:00 21 122/78 Mechanical Ventilator 30 07/12/19 20:00 122/78 07/12/19 20:00 30 07/12/19 20:00 92 2 85/62 (70) 100 07/12/19 20:00 93 07/12/19 19:30 98 25 91/67 (75) 100 07/12/19 19:08 115 41 99 Mechanical Ventilator 30 114 38 30 07/12/19 19:00 102 28 105/73 (84) 100 07/12/19 19:00 26 82/55 Mechanical Ventilator 30 07/12/19 19:00 82/55 07/12/19 18:30 109 34 102/68 (79) 100 07/12/19 18:00 94 31 95/61 (72) 100 07/12/19 18:00 30 120/77 Mechanical Ventilator 30 07/12/19 18:00 120/77 07/12/19 17:30 95 31 114/66 (82) 100 07/12/19 17:00 101 21 101/66 (78) 100 07/12/19 17:00 29 82/58 Mechanical Ventilator 30 07/12/19 17:00 82/58 07/12/19 16:45 101/66 07/12/19 16:30 97 25 102/70 (81) 100 07/12/19 16:30 95/71 07/12/19 16:15 102/70 07/12/19 16:00 30 07/12/19 16:00 98.2 93 22 102/70 (81) 100 07/12/19 16:00 28 100/68 Mechanical Ventilator 30 07/12/19 16:00 100/68 07/12/19 16:00 94 07/12/19 16:00 Mechanical Ventilator 07/12/19 15:30 97 17 89/64 (72) 100 I&O Intake and Output 07/12/19 07/13/19 18:59 06:59 Intake Total 712.480 ml 502.34 ml Output Total 1000 ml 0 ml Balance -287.520 ml 502.34 ml Free Water 150 ml 210 ml IV Total 282.480 ml 117.34 ml Tube Feeding 280 ml 175 ml Output Urine Total 0 ml 0 ml Hemodialysis UF 1000 ml # Bowel Movements 4 3 Dressing: saturated Wound: other Drains: other Cardiovascular: RSR Respiratory: decreased breath sounds Abdomen: soft, non-tender, present bowel sounds Extremities: no cyanosis Laboratory Tests Test 07/13/19 08:45 White Blood Count 16.8 K/UL (4.8-10.8) H Red Blood Count 3.35 M/UL (4.70-6.10) L Hemoglobin 9.8 G/DL (14.2-18.0) L Hematocrit 29.7 % (42.0-52.0) L Mean Corpuscular Volume 89 FL (80-99) Mean Corpuscular Hemoglobin 29.3 PG (27.0-31.0) Mean Corpuscular Hemoglobin Concent 33.0 G/DL (32.0-36.0) Red Cell Distribution Width 15.5 % (11.6-14.8) H Platelet Count 425 K/UL (150-450) Mean Platelet Volume 7.0 FL (6.5-10.1) Neutrophils (%) (Auto) 80.1 % (45.0-75.0) H Lymphocytes (%) (Auto) 10.8 % (20.0-45.0) L Monocytes (%) (Auto) 6.7 % (1.0-10.0) Eosinophils (%) (Auto) 1.4 % (0.0-3.0) Basophils (%) (Auto) 1.0 % (0.0-2.0) Prothrombin Time 12.2 SEC (9.30-11.50) H Prothromb Time International Ratio 1.1 (0.9-1.1) Activated Partial Thromboplast Time 26 SEC (23-33) Sodium Level 140 MMOL/L (136-145) Potassium Level 4.2 MMOL/L (3.5-5.1) Chloride Level 94 MMOL/L (98-107) L Carbon Dioxide Level 29 MMOL/L (21-32) Anion Gap 17 mmol/L (5-15) H Blood Urea Nitrogen 71 mg/dL (7-18) H Creatinine 9.5 MG/DL (0.55-1.30) H Estimat Glomerular Filtration Rate 5.6 mL/min (>60) Glucose Level 174 MG/DL (74-106) #H Calcium Level 9.6 MG/DL (8.5-10.1) Total Bilirubin 0.6 MG/DL (0.2-1.0) Aspartate Amino Transf (AST/SGOT) 30 U/L (15-37) Alanine Aminotransferase (ALT/SGPT) 19 U/L (12-78) Alkaline Phosphatase 104 U/L (46-116) Total Protein 10.6 G/DL (6.4-8.2) H Albumin 3.5 G/DL (3.4-5.0) Globulin 7.1 g/dL Albumin/Globulin Ratio 0.5 (1.0-2.7) L Plan Problems: (1) Suspected COVID-19 virus infection (2) HTN (hypertension) (3) CASSANDRA (acute kidney injury) Assessment & Plan: Needs urgent HD needs access patient okay and consented see note will follow with recs new line placed discussed with team and nephrology HD line functional when checked has TPA now please use appropriately Cathflo used again this flow during dialysis on 430 was low. Will monitor may need line change / plan for HD as per renal may need to take fluid off with HD edema anasarca dressings saturated and changed will monitor cont with HD IJ left line placed for HD given extent of prior line in place. leukocytosis blood cx negative (4) Anemia in chronic kidney disease (CKD) (5) Anemia (6) Renal failure (7) Suspected COVID-19 virus infection Assessment & Plan: Pt deconditioned and despite all skin preventions Pt noted to have developed several pressure injuries. . Stable dry eschar noted to clefts of R and L ears. No erythema noted . DTPI noted to L trochanter. Base of injury is maroon in colour with marginal erythema along borders. Partially opened DTPI Sacrum, R and L Buttocks. Base of wound is maroon with two small open wounds L sacrum and L buttocks. Pt has an APM/MOMO Mattress overlay and is being positioned with pillows as per tolerance and within protocols. worsening despite medical efforts will cont to provide therapy Tx.Plan: Apply Cavilon Skin Barrier to both ears Daily and prn. Apply Moisture Barrier Paste to Sacrum,R and L Buttocks. Cover with Optifoam drsgs. Change every 3 days and PRN. Apply Cavilon Skin Barrier to R and L trochanter. Cover each site with Optifoam drsgs.Change every 7 days and PRN. Apply Cavilon Skin Barrier to both heels. Cover each heel with Optifoam drsg. Change every 7 days and prn. Off-load heels with pillow. Reposition at least every 2hours or as tolerated. APM/MOMO Mattress overlay. (8) COVID-19 Assessment & Plan: COVID + c diff negative febrile leukocytosis renal insufficiency see above cont resp care Rx as per ID worsening on vent support now cxr noted on pressors prognosis guarded repeat covid ++ weaning vent and pressors off slowly showing improvement slowly recovering will need trach as unable to wean vent safely called and spoke with country conservatorship. consent obtained s/p trach pending peg Yaniv Mast Jul 13, 2019 15:30
--- NOTE | 2019-07-13 15:32 | Operative Note - PDOC ---
Operative Note Operative Note Pre-op Diagnosis: COVID + sepsis respiratory insufficiency renal insufficiency Procedure: left internal jugular temporary Hemodialysis catheter insertion under ultrasound guidance Ultrasound guidance left neck Post-op Diagnosis: same as pre-op Surgeon: niyah Anesthesia: local Specimen: none Complications: none Condition: unstable Fluids: see records Estimated Blood Loss: minimal Drains: none Implant(s) used?: No Indications for Procedure Patient requiring hemodialysis currently has right femoral temporary line which is been in place for significant period of time leukocytosis blood cultures negative line seemingly okay but recommend changing given condition and length of stay. Description of Procedure Patient was made comfortable the bedside in the Trendelenburg position. The left neck was prepped draped in the same surgical fashion. Ultrasound guidance was used in the vein and artery were mapped clearly to identify accurate positioning and needle insertion site. Local anesthetic was infiltrated and a finder needle was used in the left internal jugular vein was cannulated on first stick without complication. Good venous flow noted. Guidewire placed and the needle needle removed. Small skin cyst made around the guidewire. Ultrasound used and the guidewire was clearly identified to go through the subcu skin subcutaneous tissue and into the internal jugular vein without complication on ultrasound. The dilators were used the following a hemodialysis catheter temporary was inserted over the guidewire guidewire removed and discarded. All ports flushed and aspirated venous well without complication. Line sutured in place. Dressings applied. Chest x-ray obtained the line in appropriate positioning. Okay to use we will plan on removing prior right groin line Yaniv Mast Jul 13, 2019 15:32
[2019-07-13] MEDS: Meropenem 500 MG in NS 55 ML IVPB SCH (17:47)
[2019-07-13] MEDS: Dyna-Hex 2% Top Sol 2oz TOPIC SCH (20:04)
--- NOTE | 2019-07-13 21:18 | General Progress Note ---
Assessment/Plan Problem List: (1) HTN (hypertension) ICD Codes: I10 - Essential (primary) hypertension SNOMED: 72691330 (2) CASSANDRA (acute kidney injury) ICD Codes: N17.9 - Acute kidney failure, unspecified SNOMED: 8666207, 91811938 (3) Anemia in chronic kidney disease (CKD) ICD Codes: N18.9 - Chronic kidney disease, unspecified; D63.1 - Anemia in chronic kidney disease SNOMED: 292238911 (4) Renal failure ICD Codes: N19 - Unspecified kidney failure SNOMED: 56366068 (5) Respiratory failure requiring intubation ICD Codes: J96.90 - Respiratory failure, unspecified, unspecified whether with hypoxia or hypercapnia; A41.89 - Other specified sepsis SNOMED: 888473718, 568352326 (6) Pneumonia due to COVID-19 virus ICD Codes: U07.1 - COVID-19; J12.89 - Other viral pneumonia SNOMED: 887043877, 439009623 (7) Sepsis due to severe acute respiratory syndrome coronavirus 2 (SARS-CoV-2) ICD Codes: U07.1 - COVID-19; A41.89 - Other specified sepsis SNOMED: 685996914, 020510881 Status: progressing, unchanged Assessment/Plan: leukocytosis improving peg per gi reviewed chart and labs s/p trach off pressors still getting diaylsis covid positive pna resp failure Subjective ROS Limited/Unobtainable: Yes Allergies: Coded Allergies: No Known Allergies (Unverified , 05/28/19) Objective Last 24 Hour Vital Signs Date Time Temp Pulse Resp B/P (MAP) Pulse Ox O2 Delivery O2 Flow Rate FiO2 07/13/19 21:00 97 19 97/64 (75) 100 07/13/19 20:00 100.3 100 29 87/60 (69) 100 07/13/19 20:00 19 95/75 Mechanical Ventilator 30 07/13/19 20:00 95/75 07/13/19 20:00 Mechanical Ventilator 07/13/19 20:00 95 07/13/19 20:00 30 07/13/19 19:00 26 80/59 Mechanical Ventilator 30 07/13/19 19:00 90/59 07/13/19 19:00 100 26 100 Mechanical Ventilator 30 99 26 30 07/13/19 19:00 103 26 117/68 (84) 100 07/13/19 18:00 106 26 125/78 (94) 100 07/13/19 18:00 26 86/58 Mechanical Ventilator 30 07/13/19 18:00 86/58 07/13/19 17:30 108 22 97/61 (73) 100 07/13/19 17:00 100.0 103 12 102/64 (77) 100 07/13/19 17:00 25 97/61 Mechanical Ventilator 30 07/13/19 17:00 97/61 07/13/19 16:30 105 27 101/69 (80) 100 07/13/19 16:00 105 28 99/66 (77) 96 07/13/19 16:00 29 99/66 Mechanical Ventilator 30 07/13/19 16:00 99/66 07/13/19 16:00 Mechanical Ventilator 07/13/19 16:00 103 07/13/19 16:00 30 07/13/19 15:30 105 26 110/69 (83) 96 07/13/19 15:08 107 31 100 Mechanical Ventilator 30 102 30 30 07/13/19 15:00 104 27 116/65 (82) 100 07/13/19 15:00 32 114/68 Mechanical Ventilator 30 07/13/19 15:00 114/68 07/13/19 14:18 102 26 100 07/13/19 14:17 97 26 100 07/13/19 14:00 27 111/65 Mechanical Ventilator 30 07/13/19 14:00 111/65 07/13/19 14:00 102 28 111/65 (80) 100 07/13/19 13:30 102 28 120/72 (88) 100 07/13/19 13:00 101 15 114/71 (85) 100 07/13/19 13:00 20 114/71 Mechanical Ventilator 30 07/13/19 13:00 114/71 07/13/19 12:30 102 27 99/59 (72) 100 07/13/19 12:00 30 07/13/19 12:00 106 07/13/19 12:00 Mechanical Ventilator 07/13/19 12:00 16 100/59 Mechanical Ventilator 30 07/13/19 12:00 100/59 07/13/19 12:00 104 28 99/63 (75) 100 07/13/19 11:30 98.2 102 0 84/53 (63) 100 07/13/19 11:25 100 28 30 07/13/19 11:00 105 26 96/66 (76) 100 07/13/19 11:00 24 84/53 Mechanical Ventilator 30 07/13/19 11:00 84/53 07/13/19 10:30 99.5 07/13/19 10:00 26 120/72 Mechanical Ventilator 30 07/13/19 10:00 26 120/72 Mechanical Ventilator 10.0 30 07/13/19 10:00 106/70 07/13/19 09:45 112 34 98 07/13/19 09:30 96 12 104/66 (79) 100 07/13/19 09:15 95 0 100 07/13/19 09:00 15 104/66 Mechanical Ventilator 30 07/13/19 09:00 104/66 07/13/19 09:00 95 12 104/73 (83) 100 07/13/19 08:45 94 21 100 07/13/19 08:39 97/56 07/13/19 08:30 94 19 111/73 (86) 100 07/13/19 08:28 100 07/13/19 08:15 92 6 100 07/13/19 08:00 93 37 95/71 (79) 100 07/13/19 08:00 113 07/13/19 08:00 14 117/73 Mechanical Ventilator 30 07/13/19 08:00 117/73 07/13/19 08:00 Mechanical Ventilator 07/13/19 08:00 30 07/13/19 07:45 95 15 100 07/13/19 07:30 94 23 90/69 (76) 100 07/13/19 07:14 95 28 100 Mechanical Ventilator 30 99 28 30 07/13/19 07:00 95 20 90/69 (76) 100 07/13/19 07:00 23 97/55 Mechanical Ventilator 30 07/13/19 07:00 97/56 07/13/19 06:51 99.5 07/13/19 06:30 99.5 96 0 94/55 (68) 100 07/13/19 06:00 20 94/56 Mechanical Ventilator 30 07/13/19 06:00 94/55 07/13/19 06:00 98 0 90/57 (68) 100 07/13/19 05:30 99 4 84/67 (73) 100 07/13/19 05:00 20 110/66 Mechanical Ventilator 30 07/13/19 05:00 110/66 07/13/19 05:00 105 15 110/66 (81) 100 07/13/19 04:30 107 20 110/79 (89) 100 07/13/19 04:00 30 07/13/19 04:00 20 112/79 Mechanical Ventilator 30 07/13/19 04:00 112/79 07/13/19 04:00 103 07/13/19 04:00 Mechanical Ventilator 07/13/19 04:00 106 21 112/79 (90) 100 07/13/19 03:30 109 17 100/72 (81) 100 07/13/19 03:13 103 26 100 Mechanical Ventilator 30 101 26 30 07/13/19 03:00 23 110/84 Mechanical Ventilator 30 07/13/19 03:00 110/84 07/13/19 03:00 103 19 110/84 (93) 100 07/13/19 02:30 109 26 107/72 (84) 100 07/13/19 02:00 109 27 135/81 (99) 100 07/13/19 02:00 23 135/81 Mechanical Ventilator 30 07/13/19 02:00 135/81 07/13/19 01:30 109 19 115/77 (90) 100 07/13/19 01:00 100 2 128/84 (99) 100 07/13/19 01:00 18 128/84 Mechanical Ventilator 30 07/13/19 01:00 128/84 07/13/19 00:30 98 9 99/69 (79) 100 07/13/19 00:00 Mechanical Ventilator 07/13/19 00:00 92 07/13/19 00:00 20 117/51 Mechanical Ventilator 30 07/13/19 00:00 117/51 07/13/19 00:00 95 28 144/73 (96) 100 07/13/19 00:00 30 07/12/19 23:30 93 14 100/64 (76) 100 07/12/19 23:10 89 26 100 Mechanical Ventilator 30 92 26 30 07/12/19 23:00 99.4 93 23 128/77 (94) 100 07/12/19 23:00 25 127/83 Mechanical Ventilator 30 07/12/19 23:00 127/83 07/12/19 22:30 87 2 111/58 (75) 100 07/12/19 22:00 84 0 97/67 (77) 100 07/12/19 22:00 20 113/63 Mechanical Ventilator 30 07/12/19 22:00 113/63 07/12/19 21:30 92 27 127/79 (95) 100 Intake and Output 07/12/19 07/13/19 19:00 07:00 Intake Total 721.970 ml 458.85 ml Output Total 1000 ml 0 ml Balance -278.030 ml 458.85 ml Free Water 150 ml 210 ml IV Total 291.970 ml 108.85 ml Tube Feeding 280 ml 140 ml Output Urine Total 0 ml 0 ml Hemodialysis UF 1000 ml # Bowel Movements 4 3 Laboratory Tests 07/13/19 08:45: White Blood Count 16.8H, Red Blood Count 3.35L, Hemoglobin 9.8L, Hematocrit 29.7L, Mean Corpuscular Volume 89, Mean Corpuscular Hemoglobin 29.3, Mean Corpuscular Hemoglobin Concent 33.0, Red Cell Distribution Width 15.5H, Platelet Count 425, Mean Platelet Volume 7.0, Neutrophils (%) (Auto) 80.1H, Lymphocytes (%) (Auto) 10.8L, Monocytes (%) (Auto) 6.7, Eosinophils (%) (Auto) 1.4, Basophils (%) (Auto) 1.0, Prothrombin Time 12.2H, Prothromb Time International Ratio 1.1, Activated Partial Thromboplast Time 26, Sodium Level 140, Potassium Level 4.2, Chloride Level 94L, Carbon Dioxide Level 29, Anion Gap 17H, Blood Urea Nitrogen 71H, Creatinine 9.5H, Estimat Glomerular Filtration Rate 5.6, Glucose Level 174#H, Calcium Level 9.6, Total Bilirubin 0.6 , Aspartate Amino Transf (AST/SGOT) 30, Alanine Aminotransferase (ALT/SGPT) 19, Alkaline Phosphatase 104, Total Protein 10.6H, Albumin 3.5, Globulin 7.1, Albumin/Globulin Ratio 0.5L Height (Feet): 6 Height (Inches): 1.00 Weight (Pounds): 147 Karishma Mulligan MD Jul 13, 2019 21:18
--- NOTE | 2019-07-13 23:15 | Procedure Note ---
DATE OF PROCEDURE: 07/13/2019 SURGEON: Marito Ramires MD. PROCEDURE: Upper endoscopy with PEG placement. ANESTHESIA: Per Dr. Ambrocio. INSTRUMENT: Olympus adult flexible upper endoscope. INDICATION: Dysphagia. The procedure, risks, benefits, and possible consequences, including hemorrhage, aspiration, perforation and infection, and alternative treatments, were explained to the patient/legal guardian by Dr. Marito Ramires and the patient/legal guardian understood and accepted these risks. DESCRIPTION OF PROCEDURE: After informed consent was obtained and the patient was adequately sedated, Olympus upper endoscope was advanced from the mouth to second portion of the duodenum and retroflexion was performed in the stomach. Then, a 20-Egyptian G-tube was placed under endoscopic guidance under sterile condition. The distance of the tube to the skin was about 2.5 cm in size. The patient tolerated the procedure very well without any complications. SUMMARY OF FINDINGS: Successful G-tube placement. RECOMMENDATIONS: Abdominal binder. Elevate the head of bed at all times. G-tube flush. G-tube care. Start tube feeding later today. Marito Ramires M.D. DR: Karen JOB#: [id number] CC:
[2019-07-14] VITALS (44 sets, daily range): BP systolic 93–164; BP diastolic 59–112
--- NOTE | 2019-07-14 01:33 | Pulmonolgy Critical Care Note ---
Critical Care - Asmt/Plan Assessment/Plan: Pulmonary CCM Progress Note HPI: Patient is a 68 year old man, long term resident, admitted c/o shortness of breath, cough, noted to have Covid 19 Pneumonia, Respiratory Failure S/p intubation, CXR improving infiltrates ETT adjusted Septic Shock, pressors off Preserved EF FIO2 40%-50%, P5, adequate O2 sats, remains on ACVC, s/p Tracheostomy, CXR stable, spPEG PRN pressors Seen earlier on 07/13/2019 ID following Past Medical History: COPD, CKD, Hypertension, Anemia Allergies: No Known Allergies Improving Pulmonary Status on HD Physical Exam Vital Signs Noted Sedated on ventilator WDWN, no distress HEENT: NCAT,moist mm Chest: Occasional rhonchi Heart: HS1, HS2, RRR Abdomen: SNTND, no masses Extremities: Well perfused, no edema 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, 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, 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 Impression: COVID-19 virus infection Pneumonia Respiratory failure on ventilator, wean as tolerated CKD - on HD Hypotension on pressors previously Cardiomegaly Lymphopenia Elevated AST COPD Chronic Kidney Disease - HD H/o Hypertension Worsening anemia Plan: Tolerated Tracheostomy Antibiotics per ID HD Pressors PRN ACVC - wean as tolerated [employer]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 Monitor cultures/viral studies PPX Hemodialysis per Renal Psychiatry following [facility] - [facility] requested for when available, [facility] - not available as yet Laboratory Tests Noted: CXR: Hypoventilatory exam, interstitial changes, cardiomegaly, improving infiltrates Subjective ROS Limited/Unobtainable: No Constitutional: Denies: fever Respiratory: Reports: dry cough, shortness of breath Gastrointestinal/Abdominal: Reports: diarrhea, other - colace was stopped Psychiatric: Reports: other - refuses labs Allergies: Coded Allergies: No Known Allergies (Unverified , 05/28/19) All Systems: reviewed and negative except above Labs noted Critical Care - Objective Last 24 Hour Vital Signs Date Time Temp Pulse Resp B/P (MAP) Pulse Ox O2 Delivery O2 Flow Rate FiO2 07/14/19 01:00 82 13 145/85 (105) 100 07/14/19 01:00 13 145/85 Mechanical Ventilator 30 07/14/19 01:00 145/85 07/14/19 00:30 87 19 136/82 (100) 100 07/14/19 00:00 98.2 87 26 94/73 (80) 100 07/14/19 00:00 Mechanical Ventilator 07/14/19 00:00 26 94/73 Mechanical Ventilator 30 07/14/19 00:00 94/73 07/14/19 00:00 84 07/14/19 00:00 30 07/13/19 23:37 94 26 100 Mechanical Ventilator 30 93 26 30 07/13/19 23:01 100.1 07/13/19 23:00 90 30 115/70 (85) 100 07/13/19 23:00 30 115/70 Mechanical Ventilator 30 07/13/19 23:00 115/70 07/13/19 22:00 97 25 97/63 (74) 100 07/13/19 22:00 25 97/63 Mechanical Ventilator 30 07/13/19 22:00 97/63 07/13/19 21:00 97 19 97/64 (75) 100 07/13/19 21:00 19 97/64 Mechanical Ventilator 30 07/13/19 21:00 97/64 07/13/19 20:00 100.3 100 29 87/60 (69) 100 07/13/19 20:00 19 95/75 Mechanical Ventilator 30 07/13/19 20:00 95/75 07/13/19 20:00 Mechanical Ventilator 07/13/19 20:00 95 07/13/19 20:00 30 07/13/19 19:00 26 80/59 Mechanical Ventilator 30 07/13/19 19:00 90/59 07/13/19 19:00 100 26 100 Mechanical Ventilator 30 99 26 30 07/13/19 19:00 103 26 117/68 (84) 100 07/13/19 18:00 106 26 125/78 (94) 100 07/13/19 18:00 26 86/58 Mechanical Ventilator 30 07/13/19 18:00 86/58 07/13/19 17:30 108 22 97/61 (73) 100 07/13/19 17:00 100.0 103 12 102/64 (77) 100 07/13/19 17:00 25 97/61 Mechanical Ventilator 30 07/13/19 17:00 97/61 07/13/19 16:30 105 27 101/69 (80) 100 07/13/19 16:00 105 28 99/66 (77) 96 07/13/19 16:00 29 99/66 Mechanical Ventilator 30 07/13/19 16:00 99/66 07/13/19 16:00 Mechanical Ventilator 07/13/19 16:00 103 07/13/19 16:00 30 07/13/19 15:30 105 26 110/69 (83) 96 07/13/19 15:08 107 31 100 Mechanical Ventilator 30 102 30 30 07/13/19 15:00 104 27 116/65 (82) 100 07/13/19 15:00 32 114/68 Mechanical Ventilator 30 07/13/19 15:00 114/68 07/13/19 14:18 102 26 100 07/13/19 14:17 97 26 100 07/13/19 14:00 27 111/65 Mechanical Ventilator 30 07/13/19 14:00 111/65 07/13/19 14:00 102 28 111/65 (80) 100 07/13/19 13:30 102 28 120/72 (88) 100 07/13/19 13:00 101 15 114/71 (85) 100 07/13/19 13:00 20 114/71 Mechanical Ventilator 30 07/13/19 13:00 114/71 07/13/19 12:30 102 27 99/59 (72) 100 07/13/19 12:00 30 07/13/19 12:00 106 07/13/19 12:00 Mechanical Ventilator 07/13/19 12:00 16 100/59 Mechanical Ventilator 30 07/13/19 12:00 100/59 07/13/19 12:00 104 28 99/63 (75) 100 07/13/19 11:30 98.2 102 0 84/53 (63) 100 07/13/19 11:25 100 28 30 07/13/19 11:00 105 26 96/66 (76) 100 07/13/19 11:00 24 84/53 Mechanical Ventilator 30 07/13/19 11:00 84/53 07/13/19 10:30 99.5 07/13/19 10:00 26 120/72 Mechanical Ventilator 30 07/13/19 10:00 26 120/72 Mechanical Ventilator 10.0 30 07/13/19 10:00 106/70 07/13/19 09:45 112 34 98 07/13/19 09:30 96 12 104/66 (79) 100 07/13/19 09:15 95 0 100 6/2/20 09:00 15 104/66 Mechanical Ventilator 30 07/13/19 09:00 104/66 07/13/19 09:00 95 12 104/73 (83) 100 07/13/19 08:45 94 21 100 07/13/19 08:39 97/56 07/13/19 08:30 94 19 111/73 (86) 100 07/13/19 08:28 100 07/13/19 08:15 92 6 100 07/13/19 08:00 93 37 95/71 (79) 100 07/13/19 08:00 113 07/13/19 08:00 14 117/73 Mechanical Ventilator 30 07/13/19 08:00 117/73 07/13/19 08:00 Mechanical Ventilator 07/13/19 08:00 30 07/13/19 07:45 95 15 100 07/13/19 07:30 94 23 90/69 (76) 100 07/13/19 07:14 95 28 100 Mechanical Ventilator 30 99 28 30 07/13/19 07:00 95 20 90/69 (76) 100 07/13/19 07:00 23 97/55 Mechanical Ventilator 30 07/13/19 07:00 97/56 07/13/19 06:51 99.5 07/13/19 06:30 99.5 96 0 94/55 (68) 100 07/13/19 06:00 20 94/56 Mechanical Ventilator 30 07/13/19 06:00 94/55 07/13/19 06:00 98 0 90/57 (68) 100 07/13/19 05:30 99 4 84/67 (73) 100 07/13/19 05:00 20 110/66 Mechanical Ventilator 30 07/13/19 05:00 110/66 07/13/19 05:00 105 15 110/66 (81) 100 07/13/19 04:30 107 20 110/79 (89) 100 07/13/19 04:00 30 07/13/19 04:00 20 112/79 Mechanical Ventilator 30 07/13/19 04:00 112/79 07/13/19 04:00 103 07/13/19 04:00 Mechanical Ventilator 07/13/19 04:00 106 21 112/79 (90) 100 07/13/19 03:30 109 17 100/72 (81) 100 07/13/19 03:13 103 26 100 Mechanical Ventilator 30 101 26 30 07/13/19 03:00 23 110/84 Mechanical Ventilator 30 07/13/19 03:00 110/84 07/13/19 03:00 103 19 110/84 (93) 100 07/13/19 02:30 109 26 107/72 (84) 100 07/13/19 02:00 109 27 135/81 (99) 100 07/13/19 02:00 23 135/81 Mechanical Ventilator 30 07/13/19 02:00 135/81 Micro: Microbiology Date/Time Source Procedure Growth Status 07/11/19 13:14 Blood Blood Culture - Preliminary NO GROWTH AFTER 24 HOURS Resulted Accucheck: 208 Critical Care - Subjective ROS Limited/Unobtainable: No Condition: stable IV Access: central FI02: 30 Vent Support Breath Rate: 26 Vent Support Mode: AC Vent Tidal Volume: 500 Sputum Amount: Small PEEP: 5.0 PIP: 30 Tube Feeding Amount: 0 I&O: Intake and Output 07/13/19 07/14/19 19:00 07:00 Intake Total 474.98 ml 134.939 ml Output Total 0 ml 0 ml Balance 474.98 ml 134.939 ml Free Water 30 ml IV Total 444.98 ml 74.939 ml Tube Feeding 0 ml 0 ml Other 60 ml Output Urine Total 0 ml 0 ml # Bowel Movements 2 ET-Tube: 7.5 ET Position: 24 Arturo Mckeon MD Jul 14, 2019 01:33
[2019-07-14] MEDS: Albuterol 90mcg Inhaler 8gm INH SCH ×6 (03:53→23:59)
[2019-07-14] MEDS: Renvela 800mg Pkt NG SCH (05:17)
[2019-07-14 05:21] LABS: BASOPHILS % (AUTO) 0.9 % (0.0-2.0); EOSINOPHILS % (AUTO) 1.8 % (0.0-3.0); HEMATOCRIT 30.5 % (42.0-52.0); HEMOGLOBIN 9.8 G/DL (14.2-18.0); LYMPHOCYTES % (AUTO) 8.8 % (20.0-45.0); MEAN CORPUSCULAR VOLUME 91 FL (80-99); NEUTROPHILS % (AUTO) 80.5 % (45.0-75.0); PLATELET COUNT 451 K/UL (150-450); RED BLOOD COUNT 3.36 M/UL (4.70-6.10); RED CELL DISTRIBUTION WIDTH 15.7 % (11.6-14.8); WHITE BLOOD COUNT 16.6 K/UL (4.8-10.8)
[2019-07-14 05:31] LABS: ANION GAP 18 mmol/L (5-15); BLOOD UREA NITROGEN 82 mg/dL (7-18); CARBON DIOXIDE 26 MMOL/L (21-32); CHLORIDE 96 MMOL/L (98-107); CREATININE 10.7 MG/DL (0.55-1.30); POTASSIUM 4.5 MMOL/L (3.5-5.1); SODIUM 140 MMOL/L (136-145)
[2019-07-14] MEDS: NovoLOG Insulin Flexpen SUBQ SCH ×4 (05:32→23:29)
[2019-07-14] MEDS: LORazepam Inj 2mg/ml 1ml IV PRN (08:36)
[2019-07-14] MEDS: Pantoprazole Inj IVP SCH (08:37)
[2019-07-14] MEDS: Midodrine 10mg tab NG SCH ×3 (08:37→17:18)
[2019-07-14] MEDS: Haloperidol Lactate 5 MG in D5W 55 ML IVPB PRN (08:37)
[2019-07-14] MEDS: Enoxaparin 30mg Inj SUBQ SCH (09:00)
[2019-07-14 09:09] LABS: ALANINE AMINOTRANSFERASE 17 U/L (12-78); ALBUMIN 3.3 G/DL (3.4-5.0); ALKALINE PHOSPHATASE 105 U/L (46-116); ASPARTATE AMINO TRANSFERASE 30 U/L (15-37); BILIRUBIN,DIRECT 0.2 MG/DL (0.0-0.3); BILIRUBIN,TOTAL 0.6 MG/DL (0.2-1.0); PHOSPHORUS 6.7 MG/DL (2.5-4.9)
--- NOTE | 2019-07-14 11:06 | Infectious Diseases Prog Note ---
Assessment/Plan Assessment/Plan IMPRESSION: 1. COVID19 pneumonia Positive: 05/27, 05/31 , 06/05, 06/09 ,06/17, 06/19, 06/23, 06/27, 07/03 2. MRSA carrier. 3. Chronic kidney disease , end-stage renal disease. 4. COPD. 5. Hypertension. 6. Anemia. 7. Hypothyroidism. 8. Hyperlipidemia. 9. Major depression. 10. Leukocytosis 11. Hypotension 12. Hepatitis C 13. Hyperuricemia 14. Diarrhea 15. septic shock 16. Leukocytosis 17. Bacteremia with Staph epidermidis Subsequent cultures negative RECOMMENDATIONS: Continue Meropenem until tonight Finished hydroxychloroquine. 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 Subjective ROS Limited/Unobtainable: Yes Constitutional: Reports: fever, other - Pr=475.3 Cardiovascular: Reports: other - HD line was changed yesterday Allergies: Coded Allergies: No Known Allergies (Unverified , 05/28/19) Objective Vital Signs Last 24 Hour Vital Signs Date Time Temp Pulse Resp B/P (MAP) Pulse Ox O2 Delivery O2 Flow Rate FiO2 07/14/19 07:30 82 26 100 Mechanical Ventilator 30 84 26 30 07/14/19 07:00 25 113/74 Mechanical Ventilator 30 07/14/19 07:00 114/74 07/14/19 07:00 82 26 101/64 (76) 100 07/14/19 06:30 83 25 113/74 (87) 100 07/14/19 06:00 24 146/83 Mechanical Ventilator 30 07/14/19 06:00 146/83 07/14/19 06:00 83 24 146/83 (104) 100 07/14/19 05:30 96 20 135/87 (103) 100 07/14/19 05:00 83 23 144/77 (99) 100 07/14/19 05:00 23 144/77 Mechanical Ventilator 30 07/14/19 05:00 144/73 07/14/19 04:30 78 26 118/70 (86) 100 07/14/19 04:00 Mechanical Ventilator 07/14/19 04:00 99.3 86 23 103/68 (80) 100 07/14/19 04:00 30 07/14/19 04:00 23 103/68 Mechanical Ventilator 30 07/14/19 04:00 103/68 07/14/19 04:00 83 07/14/19 03:30 85 26 100 Mechanical Ventilator 30 86 26 30 07/14/19 03:00 23 134/83 Mechanical Ventilator 30 07/14/19 03:00 134/83 07/14/19 03:00 87 23 134/83 (100) 100 07/14/19 02:00 138 13 141/92 (108) 100 07/14/19 02:00 24 141/92 Mechanical Ventilator 30 07/14/19 02:00 141/92 07/14/19 01:00 82 13 145/85 (105) 100 07/14/19 01:00 13 145/85 Mechanical Ventilator 30 07/14/19 01:00 145/85 07/14/19 00:30 87 19 136/82 (100) 100 07/14/19 00:00 98.2 87 26 94/73 (80) 100 07/14/19 00:00 Mechanical Ventilator 07/14/19 00:00 26 94/73 Mechanical Ventilator 30 07/14/19 00:00 94/73 07/14/19 00:00 84 07/14/19 00:00 30 07/13/19 23:37 94 26 100 Mechanical Ventilator 30 93 26 30 07/13/19 23:01 100.1 07/13/19 23:00 90 30 115/70 (85) 100 07/13/19 23:00 30 115/70 Mechanical Ventilator 30 07/13/19 23:00 115/70 07/13/19 22:00 97 25 97/63 (74) 100 07/13/19 22:00 25 97/63 Mechanical Ventilator 30 07/13/19 22:00 97/63 07/13/19 21:00 97 19 97/64 (75) 100 07/13/19 21:00 19 97/64 Mechanical Ventilator 30 07/13/19 21:00 97/64 07/13/19 20:00 100.3 100 29 87/60 (69) 100 07/13/19 20:00 19 95/75 Mechanical Ventilator 30 07/13/19 20:00 95/75 07/13/19 20:00 Mechanical Ventilator 07/13/19 20:00 95 07/13/19 20:00 30 07/13/19 19:00 26 80/59 Mechanical Ventilator 30 07/13/19 19:00 90/59 07/13/19 19:00 100 26 100 Mechanical Ventilator 30 99 26 30 07/13/19 19:00 103 26 117/68 (84) 100 07/13/19 18:00 106 26 125/78 (94) 100 07/13/19 18:00 26 86/58 Mechanical Ventilator 30 07/13/19 18:00 86/58 07/13/19 17:30 108 22 97/61 (73) 100 07/13/19 17:00 100.0 103 12 102/64 (77) 100 07/13/19 17:00 25 97/61 Mechanical Ventilator 30 07/13/19 17:00 97/61 07/13/19 16:30 105 27 101/69 (80) 100 07/13/19 16:00 105 28 99/66 (77) 96 07/13/19 16:00 29 99/66 Mechanical Ventilator 30 07/13/19 16:00 99/66 07/13/19 16:00 Mechanical Ventilator 07/13/19 16:00 103 07/13/19 16:00 30 07/13/19 15:30 105 26 110/69 (83) 96 07/13/19 15:08 107 31 100 Mechanical Ventilator 30 102 30 30 07/13/19 15:00 104 27 116/65 (82) 100 07/13/19 15:00 32 114/68 Mechanical Ventilator 30 07/13/19 15:00 114/68 07/13/19 14:18 102 26 100 07/13/19 14:17 97 26 100 07/13/19 14:00 27 111/65 Mechanical Ventilator 30 07/13/19 14:00 111/65 07/13/19 14:00 102 28 111/65 (80) 100 07/13/19 13:30 102 28 120/72 (88) 100 07/13/19 13:00 101 15 114/71 (85) 100 07/13/19 13:00 20 114/71 Mechanical Ventilator 30 07/13/19 13:00 114/71 07/13/19 12:30 102 27 99/59 (72) 100 07/13/19 12:00 30 07/13/19 12:00 106 07/13/19 12:00 Mechanical Ventilator 07/13/19 12:00 16 100/59 Mechanical Ventilator 30 07/13/19 12:00 100/59 07/13/19 12:00 104 28 99/63 (75) 100 07/13/19 11:30 98.2 102 0 84/53 (63) 100 07/13/19 11:25 100 28 30 Height (Feet): 6 Height (Inches): 1.00 Weight (Pounds): 169 HEENT: status post trach Respiratory/Chest: other - on ventilator Cardiovascular: normal rate, other - RIJ Kamlesh's catheter Abdomen: soft, non tender, other - GT feeding Extremities: no edema Neurologic/Psychiatric: disoriented Microbiology Date/Time Source Procedure Growth Status 07/11/19 13:14 Blood Blood Culture - Preliminary NO GROWTH AFTER 48 HOURS Resulted Laboratory Tests Test 07/14/19 04:00 White Blood Count 16.6 K/UL (4.8-10.8) H Red Blood Count 3.36 M/UL (4.70-6.10) L Hemoglobin 9.8 G/DL (14.2-18.0) L Hematocrit 30.5 % (42.0-52.0) L Mean Corpuscular Volume 91 FL (80-99) Mean Corpuscular Hemoglobin 29.1 PG (27.0-31.0) Mean Corpuscular Hemoglobin Concent 32.1 G/DL (32.0-36.0) Red Cell Distribution Width 15.7 % (11.6-14.8) H Platelet Count 451 K/UL (150-450) H Mean Platelet Volume 6.8 FL (6.5-10.1) Neutrophils (%) (Auto) 80.5 % (45.0-75.0) H Lymphocytes (%) (Auto) 8.8 % (20.0-45.0) L Monocytes (%) (Auto) 8.0 % (1.0-10.0) Eosinophils (%) (Auto) 1.8 % (0.0-3.0) Basophils (%) (Auto) 0.9 % (0.0-2.0) Sodium Level 140 MMOL/L (136-145) Potassium Level 4.5 MMOL/L (3.5-5.1) Chloride Level 96 MMOL/L (98-107) L Carbon Dioxide Level 26 MMOL/L (21-32) Anion Gap 18 mmol/L (5-15) H Blood Urea Nitrogen 82 mg/dL (7-18) H Creatinine 10.7 MG/DL (0.55-1.30) H Estimat Glomerular Filtration Rate 4.9 mL/min (>60) Glucose Level 261 MG/DL (74-106) H Calcium Level 10.0 MG/DL (8.5-10.1) Phosphorus Level 6.7 MG/DL (2.5-4.9) H Magnesium Level 3.1 MG/DL (1.8-2.4) H Total Bilirubin 0.6 MG/DL (0.2-1.0) Direct Bilirubin 0.2 MG/DL (0.0-0.3) Aspartate Amino Transf (AST/SGOT) 30 U/L (15-37) Alanine Aminotransferase (ALT/SGPT) 17 U/L (12-78) Alkaline Phosphatase 105 U/L (46-116) Total Protein 10.1 G/DL (6.4-8.2) H Albumin 3.3 G/DL (3.4-5.0) L Current Medications Medications (Trade) Dose Ordered Sig/Anthony Route PRN Reason Start Time Stop Time Status Last Admin Dose Admin Acetaminophen (Tylenol) 650 mg Q4H PRN NG For Pain 07/11/19 08:00 08/10/19 07:59 07/13/19 22:31 Albuterol Sulfate (Proventil MDI) 2 puff Q4HRT INH 06/06/19 23:00 08/30/19 18:59 07/14/19 07:32 Chlorhexidine Gluconate (Michelle-Hex 2%) 1 applic DAILY@1999 TOPIC 06/07/19 20:00 09/05/19 19:59 07/13/19 20:04 Dextrose (Dextrose 50%) 25 ml Q30M PRN IV Hypoglycemia 06/20/19 19:30 09/18/19 19:29 Dextrose (Dextrose 50%) 50 ml Q30M PRN IV Hypoglycemia 06/20/19 19:30 09/18/19 19:29 Dopamine HCl/ Dextrose 250 ml @ 0 mls/hr Q24H PRN IV For hypotension 06/13/19 08:15 09/11/19 08:14 Enoxaparin Sodium (Lovenox) 30 mg DAILY SUBQ 06/07/19 09:00 08/27/19 08:59 07/11/19 08:39 Epoetin Aftab (Epoetin Aftab(ESRD on dialysis)) 10,000 unit SUBQ 06/07/19 21:00 08/31/19 20:59 07/12/19 21:49 Fentanyl Citrate 250 ml @ 0 mls/hr Q24H IV 06/24/19 06:00 09/22/19 05:59 07/13/19 10:00 Haloperidol Lactate 5 mg/ Dextrose 56 ml @ 224 mls/hr Q6H PRN IVPB Agitation 07/11/19 15:00 08/25/19 14:59 07/14/19 08:37 Hydralazine HCl (Apresoline) 10 mg Q4H PRN IV Blood pressure over 160 systol 06/07/19 10:15 09/05/19 10:14 Hydromorphone HCl (Dilaudid) 0.5 mg Q3H PRN IVP For Pain 07/11/19 15:00 07/18/19 14:59 Insulin Aspart (NovoLOG) EVERY 6 HOURS SUBQ 06/21/19 00:00 09/19/19 00:00 07/14/19 05:32 Lorazepam (Ativan 2mg/ml 1ml) 0.5 mg Q4H PRN IV For Anxiety 07/11/19 15:00 07/18/19 14:59 07/14/19 08:36 Meropenem 500 mg/ Sodium Chloride 55 ml @ 110 mls/hr Q24H IVPB 07/09/19 18:00 07/14/19 17:59 07/13/19 17:47 Metoclopramide HCl (Reglan) 5 mg Q8H PRN IVP Nausea & Vomiting 06/18/19 12:00 07/18/19 11:59 06/19/19 00:50 Midodrine (Pro-Amatine) 10 mg THREE TIMES A DAY NG 06/09/19 13:00 09/07/19 12:59 07/14/19 08:37 Norepinephrine Bitartrate 8 mg/ Dextrose 283 ml @ 0 mls/hr Q24H IV 06/23/19 23:00 07/23/19 22:59 07/13/19 08:39 Pantoprazole (Protonix) 40 mg DAILY IVP 06/19/19 09:00 6/8/20 08:59 07/14/19 08:37 Sevelamer Carbonate (Renvela) 2,400 mg TID NG 07/14/19 14:00 10/12/19 13:59 Vancomycin HCl (Vanco rx to dose) 1 ea DAILY PRN MISC Per rx protocol 07/01/19 11:00 07/31/19 10:59 Ted Leyva MD Jul 14, 2019 11:06
--- NOTE | 2019-07-14 11:44 | Nephrology Progress Note ---
Assessment/Plan Problem List: (1) CASSANDRA (acute kidney injury) (2) Anemia in chronic kidney disease (CKD) (3) HTN (hypertension) (4) COVID-19 Assessment Acute renal failure most likely superimposed on chronic kidney disease Suspected COVID-19 virus infection Possible Pneumonia, lymphopenia, elevated AST Cardiomegaly, possible CHF COPD Hypertension Anemia, most likely related to chronic kidney disease Plan July 13: Patient currently on hemodialysis. The dialysis catheter which is a intrajugular Kamlesh has poor flow. Will try TPA. Continue per consultants. July 12: Due for PEG today. Due for dialysis tomorrow. Continue per consultants. Discussed with RN. July 11: Plan for dialysis today. Discussed with RN. Data reviewed. July 10: Plan for dialysis tomorrow July 11. Waiting for consent to proceed with PEG. Continue per consultants. Medication reviewed. Labs reviewed. Discussed with RN. July 09: Dialyzed yesterday. Labs reviewed. Medication reviewed. Next hemodialysis July 11. July 08: Patient has tracheostomy now. Connected to ventilator. Due for dialysis today. Continue per consultants. Discussed with SHANIQUE Romero. July 07: Patient is due for tracheostomy today. Patient was last dialyzed July 05. Will order dialysis for tomorrow. July 06: Patient is intubated on ventilator however the plan is to extubate today. Patient was dialysis yesterday July 05. The dialysis time was cut short due to patient's respiratory distress. Only 1 L was removed during dialysis yesterday. Today's lab reviewed. Continue per consultants. Will arrange for dialysis as needed. July 05: Patient due for dialysis today. Remains intubated. Will schedule permacath placement in a.m. blood cultures on July 04 are negative. July 04: Patient was dialyzed yesterday. Due for dialysis tomorrow. Continues to be intubated. After tomorrow's dialysis will order a permacath. July 03: Dialysis is about to be started now Continues to be intubated Will plan to remove the femoral dialysis catheter and exchanged for a new temporary catheter per ID recommendation We will check surveillance blood culture tomorrow July 02: Patient was dialyzed yesterday and due for dialysis tomorrow Stable from renal standpoint W on dialysis Continue per consultants, weaning....... etc. July 01: Dialysis today Other status unchanged May 21: Due for dialysis tomorrow Remains intubated on ventilator Labs and medication reviewed Discussed with RN Stable from renal standpoint of view June 29: Dialyzed yesterday Due for dialysis tomorrow Stable from renal standpoint to view Keeps failing weaning process June 28: Patient due for dialysis today Stable from renal standpoint to view Continue per consultants June 27: Labs reviewed Due due for dialysis June 28 Discussed with SHANIQUE Dick Continue per consultants Remains intubated on ventilator June 26 Labs reviewed Dialyzed yesterday Started on weaning today Continue to monitor renal parameters June 25: On dialysis now Potassium supplement implemented Continue per consultants Next dialysis June 27June 15: Status unchanged Dialyzed yesterday will dialyze again tomorrow Potassium supplements given Discussed with RN June 23: Due dialysis today Status: Remains intubated on ventilator June 22: Status unchanged Dialyzed yesterday and duefordialysistomorrow Serum sodium stable today June 21 Remains intubated on ventilator Due dialysis today Emphasized high sodium bath for dialysis June 20: Remains intubated on ventilator Dialyzed June 19 next dialysis June 21 Serum sodium 128, will give 250 cc 3% saline Remains full code Discussed with RN Iron panel ordered June 19: Discussed with RN. Patient due for dialysis today. Continue pulmonary support. Remains full code. June 18: Patient dialyzed yesterday June 17 Serum sodium improved but still low Arrange for dialysis tomorrow June 19 Continue per consultants June 8: Due for dialysis today Today's lab reviewed, low serum sodium noted, Emphasized on high sodium bath to dialysis nurse Discussed with SHANIQUE Yuen June 7: Dialyzed yesterday Remains intubated Labs reviewed, serum sodium 131 Plan to dialyze tomorrow June 17 with high sodium bath Discussed with SHANIQUE Yuen June 6: Due for dialysis today Labs reviewed Discussed with RN Transfuse 1 unit of packed RBCs today for low hemoglobin of 7.1 June 5: Blood pressure well maintained Receive dialysis June 13 next hemodialysis June 15June 4: Discussed with RN in ICU Patient did not receive proper dialysis yesterday due to dialysis catheter malfunction Catheter to be adjusted today and dialyzed to be resumed today Continue per consultants Positive for COVID 28 June 2: Patient now intubated on mechanical ventilation Discussed with SHANIQUE Yuen today June 12 Patient received dialysis yesterday June 10 next hemodialysis June 12 Blood pressure better maintained Today's labs reviewed Continue per consultants Previously patient received dialysis last evening June 05, next dialysis June 07 which was incomplete due to patient's hypotension Will start on midodrine for blood pressure support. Meanwhile continue other pressors as needed Previously Patient is doing poorly, septic, white blood cells are rising, Hypotension somewhat improved We will keep n.p.o. , NG tube for medications, and change medication to IV as needed Patient remains full code Monitor vancomycin level Previously: Patient pulled out his femoral catheter yesterday June 03 which was reinserted by Dr. Mast Patient scheduled for dialysis again June 04, which again was not done due to dialysis nurse citing catheter malfunction Meanwhile continue management per ID, pulmonary , and psych. Meanwhile white blood cell count is rising. Patient blood pressure borderline low. Will check ABG Previously May 31 : I believe patient need dialysis treatment He however needs to competency assessment if can make decisions or not I will communicate with Dr. Mulligan Previously: Per pulmonary and ID advice Adjust blood pressure medication Renal diet Anemia work-up 2D echocardiogram refused Kidney ultrasound refused Jules catheter Urine studies Per orders Subjective ROS Limited/Unobtainable: Yes Objective Objective Last 24 Hour Vital Signs Date Time Temp Pulse Resp B/P (MAP) Pulse Ox O2 Delivery O2 Flow Rate FiO2 07/14/19 11:30 81 26 100 Mechanical Ventilator 30 79 26 30 07/14/19 08:00 75 07/14/19 07:30 82 26 100 Mechanical Ventilator 30 84 26 30 07/14/19 07:00 25 113/74 Mechanical Ventilator 30 07/14/19 07:00 114/74 07/14/19 07:00 82 26 101/64 (76) 100 07/14/19 06:30 83 25 113/74 (87) 100 07/14/19 06:00 24 146/83 Mechanical Ventilator 30 07/14/19 06:00 146/83 07/14/19 06:00 83 24 146/83 (104) 100 07/14/19 05:30 96 20 135/87 (103) 100 07/14/19 05:00 83 23 144/77 (99) 100 07/14/19 05:00 23 144/77 Mechanical Ventilator 30 07/14/19 05:00 144/73 07/14/19 04:30 78 26 118/70 (86) 100 07/14/19 04:00 Mechanical Ventilator 07/14/19 04:00 99.3 86 23 103/68 (80) 100 07/14/19 04:00 30 07/14/19 04:00 23 103/68 Mechanical Ventilator 30 07/14/19 04:00 103/68 07/14/19 04:00 83 07/14/19 03:30 85 26 100 Mechanical Ventilator 30 86 26 30 07/14/19 03:00 23 134/83 Mechanical Ventilator 30 07/14/19 03:00 134/83 07/14/19 03:00 87 23 134/83 (100) 100 07/14/19 02:00 138 13 141/92 (108) 100 07/14/19 02:00 24 141/92 Mechanical Ventilator 30 07/14/19 02:00 141/92 07/14/19 01:00 82 13 145/85 (105) 100 07/14/19 01:00 13 145/85 Mechanical Ventilator 30 07/14/19 01:00 145/85 07/14/19 00:30 87 19 136/82 (100) 100 07/14/19 00:00 98.2 87 26 94/73 (80) 100 07/14/19 00:00 Mechanical Ventilator 07/14/19 00:00 26 94/73 Mechanical Ventilator 30 07/14/19 00:00 94/73 07/14/19 00:00 84 07/14/19 00:00 30 07/13/19 23:37 94 26 100 Mechanical Ventilator 30 93 26 30 07/13/19 23:01 100.1 07/13/19 23:00 90 30 115/70 (85) 100 07/13/19 23:00 30 115/70 Mechanical Ventilator 30 07/13/19 23:00 115/70 07/13/19 22:00 97 25 97/63 (74) 100 07/13/19 22:00 25 97/63 Mechanical Ventilator 30 07/13/19 22:00 97/63 07/13/19 21:00 97 19 97/64 (75) 100 07/13/19 21:00 19 97/64 Mechanical Ventilator 30 07/13/19 21:00 97/64 07/13/19 20:00 100.3 100 29 87/60 (69) 100 07/13/19 20:00 19 95/75 Mechanical Ventilator 30 07/13/19 20:00 95/75 07/13/19 20:00 Mechanical Ventilator 6/2/20 20:00 95 07/13/19 20:00 30 07/13/19 19:00 26 80/59 Mechanical Ventilator 30 07/13/19 19:00 90/59 07/13/19 19:00 100 26 100 Mechanical Ventilator 30 99 26 30 07/13/19 19:00 103 26 117/68 (84) 100 07/13/19 18:00 106 26 125/78 (94) 100 07/13/19 18:00 26 86/58 Mechanical Ventilator 30 07/13/19 18:00 86/58 07/13/19 17:30 108 22 97/61 (73) 100 07/13/19 17:00 100.0 103 12 102/64 (77) 100 07/13/19 17:00 25 97/61 Mechanical Ventilator 30 07/13/19 17:00 97/61 07/13/19 16:30 105 27 101/69 (80) 100 07/13/19 16:00 105 28 99/66 (77) 96 07/13/19 16:00 29 99/66 Mechanical Ventilator 30 07/13/19 16:00 99/66 07/13/19 16:00 Mechanical Ventilator 07/13/19 16:00 103 07/13/19 16:00 30 07/13/19 15:30 105 26 110/69 (83) 96 07/13/19 15:08 107 31 100 Mechanical Ventilator 30 102 30 30 07/13/19 15:00 104 27 116/65 (82) 100 07/13/19 15:00 32 114/68 Mechanical Ventilator 30 07/13/19 15:00 114/68 07/13/19 14:18 102 26 100 07/13/19 14:17 97 26 100 07/13/19 14:00 27 111/65 Mechanical Ventilator 30 07/13/19 14:00 111/65 07/13/19 14:00 102 28 111/65 (80) 100 07/13/19 13:30 102 28 120/72 (88) 100 07/13/19 13:00 101 15 114/71 (85) 100 07/13/19 13:00 20 114/71 Mechanical Ventilator 30 07/13/19 13:00 114/71 07/13/19 12:30 102 27 99/59 (72) 100 07/13/19 12:00 30 6/2/20 12:00 106 07/13/19 12:00 Mechanical Ventilator 07/13/19 12:00 16 100/59 Mechanical Ventilator 30 07/13/19 12:00 100/59 07/13/19 12:00 104 28 99/63 (75) 100 Intake and Output 07/13/19 07/14/19 19:00 07:00 Intake Total 474.98 ml 267.079 ml Output Total 0 ml 0 ml Balance 474.98 ml 267.079 ml Free Water 30 ml IV Total 444.98 ml 207.079 ml Tube Feeding 0 ml 0 ml Other 60 ml Output Urine Total 0 ml 0 ml # Bowel Movements 2 Laboratory Tests 07/14/19 04:00: White Blood Count 16.6H, Red Blood Count 3.36L, Hemoglobin 9.8L, Hematocrit 30.5L, Mean Corpuscular Volume 91, Mean Corpuscular Hemoglobin 29.1, Mean Corpuscular Hemoglobin Concent 32.1, Red Cell Distribution Width 15.7H, Platelet Count 451H, Mean Platelet Volume 6.8, Neutrophils (%) (Auto) 80.5H, Lymphocytes (%) (Auto) 8.8L, Monocytes (%) (Auto) 8.0, Eosinophils (%) (Auto) 1.8, Basophils (%) (Auto) 0.9, Sodium Level 140, Potassium Level 4.5, Chloride Level 96L, Carbon Dioxide Level 26, Anion Gap 18H, Blood Urea Nitrogen 82H, Creatinine 10.7H, Estimat Glomerular Filtration Rate 4.9, Glucose Level 261H, Calcium Level 10.0, Phosphorus Level 6.7H, Magnesium Level 3.1H, Total Bilirubin 0.6, Direct Bilirubin 0.2, Aspartate Amino Transf (AST/SGOT) 30, Alanine Aminotransferase (ALT/SGPT) 17, Alkaline Phosphatase 105, Total Protein 10.1H, Albumin 3.3L Height (Feet): 6 Height (Inches): 1.00 Weight (Pounds): 169 General Appearance: no apparent distress, lethargic EENT: other - Trached to vent Cardiovascular: tachycardia Respiratory/Chest: decreased breath sounds Abdomen: distended Objective No change Mic Cole MD Jul 14, 2019 11:44
[2019-07-14] MEDS ORDERED: Cathflo Alteplase 2mg Inj INJ SCH (12:00)
--- NOTE | 2019-07-14 12:26 | General Progress Note ---
Assessment/Plan Status: progressing, unchanged Assessment/Plan: 1. Diabetes. 2. Hypertension. 3. Coronary artery disease. 4. COPD. 5. Psychiatric disorder with schizophrenia. 6. History of hepatitis C. 7. HLP. 8. Chronic kidney disease, now with acute renal failure. 9. Anemia. 10. Hypothyroidism. 11. Spinal stenosis. 12. Constipation. 13. GERD. 14. COVID positive HD per nephrology fu labs icu care s/p PEG GTF monitor for residuals Subjective ROS Limited/Unobtainable: No Allergies: Coded Allergies: No Known Allergies (Unverified , 05/28/19) Objective Last 24 Hour Vital Signs Date Time Temp Pulse Resp B/P (MAP) Pulse Ox O2 Delivery O2 Flow Rate FiO2 07/14/19 11:30 79 25 124/74 (91) 98 07/14/19 11:30 81 26 100 Mechanical Ventilator 30 79 26 30 07/14/19 11:00 90 19 109/73 (85) 100 07/14/19 10:30 90 20 146/85 (105) 100 07/14/19 10:00 89 24 164/112 (129) 100 07/14/19 09:30 75 26 135/79 (97) 100 07/14/19 09:00 79 26 115/74 (88) 100 07/14/19 08:30 82 26 93/63 (73) 100 07/14/19 08:00 75 07/14/19 08:00 30 07/14/19 08:00 98.8 83 26 96/65 (75) 100 07/14/19 08:00 Mechanical Ventilator 07/14/19 07:30 82 26 100 Mechanical Ventilator 30 84 26 30 07/14/19 07:00 25 113/74 Mechanical Ventilator 30 07/14/19 07:00 114/74 07/14/19 07:00 82 26 101/64 (76) 100 07/14/19 06:30 83 25 113/74 (87) 100 07/14/19 06:00 24 146/83 Mechanical Ventilator 30 07/14/19 06:00 146/83 07/14/19 06:00 83 24 146/83 (104) 100 07/14/19 05:30 96 20 135/87 (103) 100 07/14/19 05:00 83 23 144/77 (99) 100 07/14/19 05:00 23 144/77 Mechanical Ventilator 30 07/14/19 05:00 144/73 07/14/19 04:30 78 26 118/70 (86) 100 07/14/19 04:00 Mechanical Ventilator 07/14/19 04:00 99.3 86 23 103/68 (80) 100 07/14/19 04:00 30 07/14/19 04:00 23 103/68 Mechanical Ventilator 30 07/14/19 04:00 103/68 07/14/19 04:00 83 07/14/19 03:30 85 26 100 Mechanical Ventilator 30 86 26 30 07/14/19 03:00 23 134/83 Mechanical Ventilator 30 07/14/19 03:00 134/83 07/14/19 03:00 87 23 134/83 (100) 100 07/14/19 02:00 138 13 141/92 (108) 100 07/14/19 02:00 24 141/92 Mechanical Ventilator 30 07/14/19 02:00 141/92 07/14/19 01:00 82 13 145/85 (105) 100 07/14/19 01:00 13 145/85 Mechanical Ventilator 30 07/14/19 01:00 145/85 07/14/19 00:30 87 19 136/82 (100) 100 07/14/19 00:00 98.2 87 26 94/73 (80) 100 07/14/19 00:00 Mechanical Ventilator 07/14/19 00:00 26 94/73 Mechanical Ventilator 30 07/14/19 00:00 94/73 07/14/19 00:00 84 07/14/19 00:00 30 07/13/19 23:37 94 26 100 Mechanical Ventilator 30 93 26 30 07/13/19 23:01 100.1 07/13/19 23:00 90 30 115/70 (85) 100 07/13/19 23:00 30 115/70 Mechanical Ventilator 30 07/13/19 23:00 115/70 07/13/19 22:00 97 25 97/63 (74) 100 07/13/19 22:00 25 97/63 Mechanical Ventilator 30 07/13/19 22:00 97/63 07/13/19 21:00 97 19 97/64 (75) 100 07/13/19 21:00 19 97/64 Mechanical Ventilator 30 07/13/19 21:00 97/64 07/13/19 20:00 100.3 100 29 87/60 (69) 100 07/13/19 20:00 19 95/75 Mechanical Ventilator 30 07/13/19 20:00 95/75 07/13/19 20:00 Mechanical Ventilator 07/13/19 20:00 95 07/13/19 20:00 30 07/13/19 19:00 26 80/59 Mechanical Ventilator 30 07/13/19 19:00 90/59 07/13/19 19:00 100 26 100 Mechanical Ventilator 30 99 26 30 07/13/19 19:00 103 26 117/68 (84) 100 07/13/19 18:00 106 26 125/78 (94) 100 07/13/19 18:00 26 86/58 Mechanical Ventilator 30 07/13/19 18:00 86/58 07/13/19 17:30 108 22 97/61 (73) 100 07/13/19 17:00 100.0 103 12 102/64 (77) 100 07/13/19 17:00 25 97/61 Mechanical Ventilator 30 07/13/19 17:00 97/61 07/13/19 16:30 105 27 101/69 (80) 100 07/13/19 16:00 105 28 99/66 (77) 96 07/13/19 16:00 29 99/66 Mechanical Ventilator 30 07/13/19 16:00 99/66 07/13/19 16:00 Mechanical Ventilator 07/13/19 16:00 103 07/13/19 16:00 30 07/13/19 15:30 105 26 110/69 (83) 96 07/13/19 15:08 107 31 100 Mechanical Ventilator 30 102 30 30 07/13/19 15:00 104 27 116/65 (82) 100 07/13/19 15:00 32 114/68 Mechanical Ventilator 30 07/13/19 15:00 114/68 07/13/19 14:18 102 26 100 07/13/19 14:17 97 26 100 07/13/19 14:00 27 111/65 Mechanical Ventilator 30 07/13/19 14:00 111/65 07/13/19 14:00 102 28 111/65 (80) 100 07/13/19 13:30 102 28 120/72 (88) 100 07/13/19 13:00 101 15 114/71 (85) 100 07/13/19 13:00 20 114/71 Mechanical Ventilator 30 07/13/19 13:00 114/71 07/13/19 12:30 102 27 99/59 (72) 100 Intake and Output 07/13/19 07/14/19 18:59 06:59 Intake Total 440.73 ml 284.839 ml Output Total 0 ml 0 ml Balance 440.73 ml 284.839 ml Free Water 30 ml IV Total 440.73 ml 194.839 ml Tube Feeding 0 ml 0 ml Other 60 ml Output Urine Total 0 ml 0 ml # Bowel Movements 2 Laboratory Tests 07/14/19 04:00: White Blood Count 16.6H, Red Blood Count 3.36L, Hemoglobin 9.8L, Hematocrit 30.5L, Mean Corpuscular Volume 91, Mean Corpuscular Hemoglobin 29.1, Mean Corpuscular Hemoglobin Concent 32.1, Red Cell Distribution Width 15.7H, Platelet Count 451H, Mean Platelet Volume 6.8, Neutrophils (%) (Auto) 80.5H, Lymphocytes (%) (Auto) 8.8L, Monocytes (%) (Auto) 8.0, Eosinophils (%) (Auto) 1.8, Basophils (%) (Auto) 0.9, Sodium Level 140, Potassium Level 4.5, Chloride Level 96L, Carbon Dioxide Level 26, Anion Gap 18H, Blood Urea Nitrogen 82H, Creatinine 10.7H, Estimat Glomerular Filtration Rate 4.9, Glucose Level 261H, Calcium Level 10.0, Phosphorus Level 6.7H, Magnesium Level 3.1H, Total Bilirubin 0.6, Direct Bilirubin 0.2, Aspartate Amino Transf (AST/SGOT) 30, Alanine Aminotransferase (ALT/SGPT) 17, Alkaline Phosphatase 105, Total Protein 10.1H, Albumin 3.3L Height (Feet): 6 Height (Inches): 1.00 Weight (Pounds): 169 General Appearance: lethargic EENT: PERRL/EOMI Neck: supple Cardiovascular: normal rate Respiratory/Chest: decreased breath sounds Abdomen: normal bowel sounds, non tender, soft Extremities: non-tender Marito Ramires MD Jul 14, 2019 12:26
--- NOTE | 2019-07-14 12:34 | Hematology/Onc Progress Note ---
Assessment/Plan Assessment/Plan Assessment and Recs: # Anemia of chronic disease, likely related ot underlying kidney disease has COIVD19++++++ --> hgb trend 9-->8-->7.3-->7.9-->6.8->9.5-->10->8.3-->7.7-->7.1-->8.9->8.8->7.7 -->8.1 ->7.9-->7.7 -->8.2-->8.1 -->7.9-->8.5 -->9->9.2-->9.5-->10.7 -->9.8 --> transfuse as needed, hgb goal >7 --> no evidence of hemolysis --> peripheral smear has been reviewed --> epogen started 3 x a week ==>> transfuse 06/08, 06/15, # Leukocytosis likely related to suspected COVID-19 virus infection --> completed plaquenil --> trend smear as needed --> wbc trend: 4-->11-->14.5-->21-->26-->21->24--.28-->23-->19-->16.2-->21--> 11.2 -->12.5-->12.3-->12.4-->18.5-->18.5-->17 --> pulm is aware --> on abx cefepime/vanc->zosyn/vanc-->dom/vanc-->dom --> pressors as needed --> 06/27 covid 19++ # Thrombocytopenia/Lymphopenia --> likely related to covid19 --> plt 129k-->186k-->251-->285-->384 -->430-->539-->515-->447-->451 --> abx: dom/vanc # Respiratory failure with covid19+ --> s/p vent/trach --> weaning # Possible Pneumonia --> abx completed --> 07/13 cxr: Improved right lung infiltrates. # Cardiomegaly # Transaminitis with Elevated AST # COPD # Chronic Kidney Disease --> per renal hd --> s/p right femoral cath 07/02 # Hypertension # Dvt ppx lovenox # peg Appreciate consultation and ernesto Rn Subjective Allergies: Coded Allergies: No Known Allergies (Unverified , 05/28/19) Subjective 06/01 nv, extremely agitated, not allowing labs draws, no night sweats, cbc ordered 06/02 confused, restraints, on abx and plaquenil, hgb 7.9, nrb 15 L 06/03 is with nonrebreather, but not compliant, remains confused 06/05 no bleeding, labs noted, no major bleeding, otherwise comfortable 06/06 labs reviewed, no bleeding, meds noted, no night sweats, on levo and nonrebreather 06/07 labs noted, no bleeding, meds reviewed, no bleeding, wbc higher 06/08 to get 2 units prbc, no night sweats, meds reviewed 06/09 is on cefepime and vanc, labs noted, ernesto Rn, no bleeding 06/10 no major changes, labs reviewed, wbc 28k, on abx, cefepime 06/12 remains in icu, labs noted, no night sweats or bleeding 06/13 sluggish pupils, remains agitated, per psych, no bleding, on vent, wbc sitll high 06/14 still confused, remains on vent, with ng, running nepro, on pressors 06/15 icu, febrile, non verbal, hgb 7.1, blood pending, completed plaq 06/16 remains in the icu, nonverbal, plan for hd tomorrow, ernesto rn 06/17 in icu, on pressor, nonverbal, on abx, no bleeding 06/19 no bleeding, nonverbal in icu, hgb is 7.7 06/20 on zosyn, tube feeds, vent, labs noted, in icu, nv 06/21 gettng hd as per renal, in icu, nv, no bleeding, tfs 06/22 icu, cxr with slight improvement, cooling blanket, weaning today 06/23 wewaning, in icu, on vent, abx, and pressors as needed, labs noted 06/24 failed weaning, off abx, completed plaquenil, hgb 8.1 06/26 icu, weaning for this am, afebrile, hgb 8 06/27 in icu, remains comotose, weaning started on peep, no night sweats 06/28 weaning today, off abx, restraints, no distress, h/h stable 06/29 covid 19+, failed weaning, no blood transfusion needed 06/30 icu, on vent, labs reviewed, no distress 07/01 in icu, may need trach, remains on hd per renal, labs noted 07/02 s/p right fem cath, failed wean, no new orders, h/h stable 07/03 is somewhat more responsive, on abx, no bleeding, weaning and HD today 07/04 hd as per renal, weaning off vent, no bleeding today 07/05 obtunded, no bleding overnight, with hd for tomorrow noted, vanc 07/08 no events, remains with trach/vent, dw Rn, no bleeding, cbc is noted 07/09 no overnight events, peg for friday pending consent 07/10 off pressors, vent, restraints, labs reviewed 07/11 no acute events is on pressors, intubated, agitated still 07/12 is resting comfortably, no bleeding, emds reviewed and noted 07/13 icu, no events, trach, cxr reviewed, Objective Objective Current Medications Medications (Trade) Dose Ordered Sig/Anthony Route PRN Reason Start Time Stop Time Status Last Admin Dose Admin Acetaminophen (Tylenol) 650 mg Q4H PRN NG For Pain 07/11/19 08:00 08/10/19 07:59 07/13/19 22:31 Albuterol Sulfate (Proventil MDI) 2 puff Q4HRT INH 06/06/19 23:00 08/30/19 18:59 07/14/19 11:29 Alteplase, Recombinant (Cathflo) 4 mg ONCE INJ 07/14/19 12:00 07/14/19 14:00 Chlorhexidine Gluconate (Michelle-Hex 2%) 1 applic DAILY@1999 TOPIC 06/07/19 20:00 09/05/19 19:59 07/13/19 20:04 Dextrose (Dextrose 50%) 25 ml Q30M PRN IV Hypoglycemia 06/20/19 19:30 09/18/19 19:29 Dextrose (Dextrose 50%) 50 ml Q30M PRN IV Hypoglycemia 06/20/19 19:30 09/18/19 19:29 Dopamine HCl/ Dextrose 250 ml @ 0 mls/hr Q24H PRN IV For hypotension 06/13/19 08:15 09/11/19 08:14 Enoxaparin Sodium (Lovenox) 30 mg DAILY SUBQ 06/07/19 09:00 08/27/19 08:59 07/11/19 08:39 Epoetin Aftab (Epoetin Aftab(ESRD on dialysis)) 10,000 unit SUBQ 06/07/19 21:00 08/31/19 20:59 07/12/19 21:49 Fentanyl Citrate 250 ml @ 0 mls/hr Q24H IV 06/24/19 06:00 09/22/19 05:59 07/13/19 10:00 Haloperidol Lactate 5 mg/ Dextrose 56 ml @ 224 mls/hr Q6H PRN IVPB Agitation 07/11/19 15:00 08/25/19 14:59 07/14/19 08:37 Hydralazine HCl (Apresoline) 10 mg Q4H PRN IV Blood pressure over 160 systol 06/07/19 10:15 09/05/19 10:14 Hydromorphone HCl (Dilaudid) 0.5 mg Q3H PRN IVP For Pain 07/11/19 15:00 07/18/19 14:59 Insulin Aspart (NovoLOG) EVERY 6 HOURS SUBQ 06/21/19 00:00 09/19/19 00:00 07/14/19 05:32 Lorazepam (Ativan 2mg/ml 1ml) 0.5 mg Q4H PRN IV For Anxiety 07/11/19 15:00 07/18/19 14:59 07/14/19 08:36 Meropenem 500 mg/ Sodium Chloride 55 ml @ 110 mls/hr Q24H IVPB 07/09/19 18:00 07/14/19 17:59 07/13/19 17:47 Metoclopramide HCl (Reglan) 5 mg Q8H PRN IVP Nausea & Vomiting 06/18/19 12:00 07/18/19 11:59 06/19/19 00:50 Midodrine (Pro-Amatine) 10 mg THREE TIMES A DAY NG 06/09/19 13:00 09/07/19 12:59 07/14/19 08:37 Norepinephrine Bitartrate 8 mg/ Dextrose 283 ml @ 0 mls/hr Q24H IV 06/23/19 23:00 07/23/19 22:59 07/13/19 08:39 Pantoprazole (Protonix) 40 mg DAILY IVP 06/19/19 09:00 07/19/19 08:59 07/14/19 08:37 Sevelamer Carbonate (Renvela) 2,400 mg Q6HR NG 07/14/19 12:00 10/12/19 13:59 Last 24 Hour Vital Signs Date Time Temp Pulse Resp B/P (MAP) Pulse Ox O2 Delivery O2 Flow Rate FiO2 07/14/19 11:30 79 25 124/74 (91) 98 07/14/19 11:30 81 26 100 Mechanical Ventilator 30 79 26 30 07/14/19 11:00 90 19 109/73 (85) 100 07/14/19 10:30 90 20 146/85 (105) 100 07/14/19 10:00 89 24 164/112 (129) 100 07/14/19 09:30 75 26 135/79 (97) 100 07/14/19 09:00 79 26 115/74 (88) 100 07/14/19 08:30 82 26 93/63 (73) 100 07/14/19 08:00 75 07/14/19 08:00 30 07/14/19 08:00 98.8 83 26 96/65 (75) 100 07/14/19 08:00 Mechanical Ventilator 07/14/19 07:30 82 26 100 Mechanical Ventilator 30 84 26 30 07/14/19 07:00 25 113/74 Mechanical Ventilator 30 07/14/19 07:00 114/74 07/14/19 07:00 82 26 101/64 (76) 100 07/14/19 06:30 83 25 113/74 (87) 100 07/14/19 06:00 24 146/83 Mechanical Ventilator 30 07/14/19 06:00 146/83 07/14/19 06:00 83 24 146/83 (104) 100 07/14/19 05:30 96 20 135/87 (103) 100 07/14/19 05:00 83 23 144/77 (99) 100 07/14/19 05:00 23 144/77 Mechanical Ventilator 30 07/14/19 05:00 144/73 07/14/19 04:30 78 26 118/70 (86) 100 07/14/19 04:00 Mechanical Ventilator 07/14/19 04:00 99.3 86 23 103/68 (80) 100 07/14/19 04:00 30 07/14/19 04:00 23 103/68 Mechanical Ventilator 30 07/14/19 04:00 103/68 07/14/19 04:00 83 07/14/19 03:30 85 26 100 Mechanical Ventilator 30 86 26 30 07/14/19 03:00 23 134/83 Mechanical Ventilator 30 07/14/19 03:00 134/83 07/14/19 03:00 87 23 134/83 (100) 100 07/14/19 02:00 138 13 141/92 (108) 100 07/14/19 02:00 24 141/92 Mechanical Ventilator 30 07/14/19 02:00 141/92 07/14/19 01:00 82 13 145/85 (105) 100 07/14/19 01:00 13 145/85 Mechanical Ventilator 30 07/14/19 01:00 145/85 07/14/19 00:30 87 19 136/82 (100) 100 07/14/19 00:00 98.2 87 26 94/73 (80) 100 07/14/19 00:00 Mechanical Ventilator 07/14/19 00:00 26 94/73 Mechanical Ventilator 30 07/14/19 00:00 94/73 07/14/19 00:00 84 07/14/19 00:00 30 07/13/19 23:37 94 26 100 Mechanical Ventilator 30 93 26 30 07/13/19 23:01 100.1 07/13/19 23:00 90 30 115/70 (85) 100 07/13/19 23:00 30 115/70 Mechanical Ventilator 30 07/13/19 23:00 115/70 07/13/19 22:00 97 25 97/63 (74) 100 07/13/19 22:00 25 97/63 Mechanical Ventilator 30 07/13/19 22:00 97/63 07/13/19 21:00 97 19 97/64 (75) 100 07/13/19 21:00 19 97/64 Mechanical Ventilator 30 07/13/19 21:00 97/64 07/13/19 20:00 100.3 100 29 87/60 (69) 100 07/13/19 20:00 19 95/75 Mechanical Ventilator 30 07/13/19 20:00 95/75 07/13/19 20:00 Mechanical Ventilator 07/13/19 20:00 95 07/13/19 20:00 30 07/13/19 19:00 26 80/59 Mechanical Ventilator 30 07/13/19 19:00 90/59 07/13/19 19:00 100 26 100 Mechanical Ventilator 30 99 26 30 07/13/19 19:00 103 26 117/68 (84) 100 07/13/19 18:00 106 26 125/78 (94) 100 07/13/19 18:00 26 86/58 Mechanical Ventilator 30 07/13/19 18:00 86/58 07/13/19 17:30 108 22 97/61 (73) 100 07/13/19 17:00 100.0 103 12 102/64 (77) 100 07/13/19 17:00 25 97/61 Mechanical Ventilator 30 07/13/19 17:00 97/61 07/13/19 16:30 105 27 101/69 (80) 100 07/13/19 16:00 105 28 99/66 (77) 96 07/13/19 16:00 29 99/66 Mechanical Ventilator 30 07/13/19 16:00 99/66 07/13/19 16:00 Mechanical Ventilator 07/13/19 16:00 103 07/13/19 16:00 30 07/13/19 15:30 105 26 110/69 (83) 96 07/13/19 15:08 107 31 100 Mechanical Ventilator 30 102 30 30 07/13/19 15:00 104 27 116/65 (82) 100 07/13/19 15:00 32 114/68 Mechanical Ventilator 30 07/13/19 15:00 114/68 07/13/19 14:18 102 26 100 07/13/19 14:17 97 26 100 07/13/19 14:00 27 111/65 Mechanical Ventilator 30 07/13/19 14:00 111/65 07/13/19 14:00 102 28 111/65 (80) 100 07/13/19 13:30 102 28 120/72 (88) 100 07/13/19 13:00 101 15 114/71 (85) 100 07/13/19 13:00 20 114/71 Mechanical Ventilator 30 07/13/19 13:00 114/71 07/13/19 12:30 102 27 99/59 (72) 100 07/13/19 12:00 30 07/13/19 12:00 106 07/13/19 12:00 Mechanical Ventilator 07/13/19 12:00 16 100/59 Mechanical Ventilator 30 07/13/19 12:00 100/59 07/13/19 12:00 104 28 99/63 (75) 100 07/13/19 11:30 98.2 102 0 84/53 (63) 100 07/13/19 11:25 100 28 30 07/13/19 11:00 105 26 96/66 (76) 100 07/13/19 11:00 24 84/53 Mechanical Ventilator 30 07/13/19 11:00 84/53 07/13/19 10:30 99.5 07/13/19 10:00 26 120/72 Mechanical Ventilator 30 07/13/19 10:00 26 120/72 Mechanical Ventilator 10.0 30 07/13/19 10:00 106/70 07/13/19 09:45 112 34 98 07/13/19 09:30 96 12 104/66 (79) 100 07/13/19 09:15 95 0 100 07/13/19 09:00 15 104/66 Mechanical Ventilator 30 07/13/19 09:00 104/66 07/13/19 09:00 95 12 104/73 (83) 100 07/13/19 08:45 94 21 100 07/13/19 08:39 97/56 07/13/19 08:30 94 19 111/73 (86) 100 07/13/19 08:28 100 07/13/19 08:15 92 6 100 07/13/19 08:00 93 37 95/71 (79) 100 07/13/19 08:00 113 07/13/19 08:00 14 117/73 Mechanical Ventilator 30 07/13/19 08:00 117/73 07/13/19 08:00 Mechanical Ventilator 07/13/19 08:00 30 07/13/19 07:45 95 15 100 07/13/19 07:30 94 23 90/69 (76) 100 07/13/19 07:14 95 28 100 Mechanical Ventilator 30 99 28 30 07/13/19 07:00 95 20 90/69 (76) 100 07/13/19 07:00 23 97/55 Mechanical Ventilator 30 07/13/19 07:00 97/56 07/13/19 06:51 99.5 07/13/19 06:30 99.5 96 0 94/55 (68) 100 07/13/19 06:00 20 94/56 Mechanical Ventilator 30 07/13/19 06:00 94/55 07/13/19 06:00 98 0 90/57 (68) 100 07/13/19 05:30 99 4 84/67 (73) 100 07/13/19 05:00 20 110/66 Mechanical Ventilator 30 07/13/19 05:00 110/66 07/13/19 05:00 105 15 110/66 (81) 100 07/13/19 04:30 107 20 110/79 (89) 100 07/13/19 04:00 30 07/13/19 04:00 20 112/79 Mechanical Ventilator 30 07/13/19 04:00 112/79 07/13/19 04:00 103 07/13/19 04:00 Mechanical Ventilator 07/13/19 04:00 106 21 112/79 (90) 100 07/13/19 03:30 109 17 100/72 (81) 100 07/13/19 03:13 103 26 100 Mechanical Ventilator 30 101 26 30 07/13/19 03:00 23 110/84 Mechanical Ventilator 30 07/13/19 03:00 110/84 07/13/19 03:00 103 19 110/84 (93) 100 07/13/19 02:30 109 26 107/72 (84) 100 07/13/19 02:00 109 27 135/81 (99) 100 07/13/19 02:00 23 135/81 Mechanical Ventilator 30 07/13/19 02:00 135/81 07/13/19 01:30 109 19 115/77 (90) 100 07/13/19 01:00 100 2 128/84 (99) 100 07/13/19 01:00 18 128/84 Mechanical Ventilator 30 07/13/19 01:00 128/84 07/13/19 00:30 98 9 99/69 (79) 100 07/13/19 00:00 Mechanical Ventilator 07/13/19 00:00 92 07/13/19 00:00 20 117/51 Mechanical Ventilator 30 07/13/19 00:00 117/51 07/13/19 00:00 95 28 144/73 (96) 100 07/13/19 00:00 30 07/12/19 23:30 93 14 100/64 (76) 100 07/12/19 23:10 89 26 100 Mechanical Ventilator 30 92 26 30 07/12/19 23:00 99.4 93 23 128/77 (94) 100 07/12/19 23:00 25 127/83 Mechanical Ventilator 30 07/12/19 23:00 127/83 07/12/19 22:30 87 2 111/58 (75) 100 07/12/19 22:00 84 0 97/67 (77) 100 07/12/19 22:00 20 113/63 Mechanical Ventilator 30 07/12/19 22:00 113/63 07/12/19 21:30 92 27 127/79 (95) 100 07/12/19 21:00 18 85/60 Mechanical Ventilator 30 07/12/19 21:00 85/60 07/12/19 21:00 87 14 101/66 (78) 100 07/12/19 20:30 89 17 101/62 (75) 100 07/12/19 20:00 Mechanical Ventilator 07/12/19 20:00 21 122/78 Mechanical Ventilator 30 07/12/19 20:00 122/78 07/12/19 20:00 30 07/12/19 20:00 92 2 85/62 (70) 100 07/12/19 20:00 93 07/12/19 19:30 98 25 91/67 (75) 100 07/12/19 19:08 115 41 99 Mechanical Ventilator 30 114 38 30 07/12/19 19:00 102 28 105/73 (84) 100 07/12/19 19:00 26 82/55 Mechanical Ventilator 30 07/12/19 19:00 82/55 07/12/19 18:30 109 34 102/68 (79) 100 07/12/19 18:00 94 31 95/61 (72) 100 07/12/19 18:00 30 120/77 Mechanical Ventilator 30 07/12/19 18:00 120/77 07/12/19 17:30 95 31 114/66 (82) 100 07/12/19 17:00 101 21 101/66 (78) 100 07/12/19 17:00 29 82/58 Mechanical Ventilator 30 07/12/19 17:00 82/58 07/12/19 16:45 101/66 07/12/19 16:30 97 25 102/70 (81) 100 07/12/19 16:30 95/71 07/12/19 16:15 102/70 07/12/19 16:00 30 07/12/19 16:00 98.2 93 22 102/70 (81) 100 07/12/19 16:00 28 100/68 Mechanical Ventilator 30 07/12/19 16:00 100/68 07/12/19 16:00 94 07/12/19 16:00 Mechanical Ventilator 07/12/19 15:30 97 17 89/64 (72) 100 07/12/19 15:05 90 26 100 Mechanical Ventilator 30 90 26 30 07/12/19 15:00 88 3 104/62 (76) 100 07/12/19 15:00 23 111/67 Mechanical Ventilator 30 07/12/19 15:00 111/67 07/12/19 14:30 100 26 95/57 (70) 100 07/12/19 14:00 24 100/63 Mechanical Ventilator 30 07/12/19 14:00 100/63 07/12/19 14:00 107 32 109/76 (87) 100 07/12/19 13:45 109/76 07/12/19 13:30 99 20 108/57 (74) 100 07/12/19 13:30 118/72 07/12/19 13:15 108/57 07/12/19 13:00 20 109/65 Mechanical Ventilator 30 07/12/19 13:00 109/65 07/12/19 13:00 103 13 88/57 (67) 100 07/12/19 12:45 88/57 07/12/19 12:30 94/64 07/12/19 12:30 104 17 98/60 (73) 100 Intake and Output 07/13/19 07/14/19 19:00 07:00 Intake Total 474.98 ml 267.079 ml Output Total 0 ml 0 ml Balance 474.98 ml 267.079 ml Free Water 30 ml IV Total 444.98 ml 207.079 ml Tube Feeding 0 ml 0 ml Other 60 ml Output Urine Total 0 ml 0 ml # Bowel Movements 2 Labs Test 07/12/19 05:30 07/13/19 08:45 07/14/19 04:00 White Blood Count 17.5 K/UL (4.8-10.8) 16.8 K/UL (4.8-10.8) 16.6 K/UL (4.8-10.8) Red Blood Count 3.38 M/UL (4.70-6.10) 3.35 M/UL (4.70-6.10) 3.36 M/UL (4.70-6.10) Hemoglobin 9.8 G/DL (14.2-18.0) 9.8 G/DL (14.2-18.0) 9.8 G/DL (14.2-18.0) Hematocrit 30.7 % (42.0-52.0) 29.7 % (42.0-52.0) 30.5 % (42.0-52.0) Mean Corpuscular Volume 91 FL (80-99) 89 FL (80-99) 91 FL (80-99) Mean Corpuscular Hemoglobin 29.1 PG (27.0-31.0) 29.3 PG (27.0-31.0) 29.1 PG (27.0-31.0) Mean Corpuscular Hemoglobin Concent 32.0 G/DL (32.0-36.0) 33.0 G/DL (32.0-36.0) 32.1 G/DL (32.0-36.0) Red Cell Distribution Width 16.0 % (11.6-14.8) 15.5 % (11.6-14.8) 15.7 % (11.6-14.8) Platelet Count 466 K/UL (150-450) 425 K/UL (150-450) 451 K/UL (150-450) Mean Platelet Volume 6.3 FL (6.5-10.1) 7.0 FL (6.5-10.1) 6.8 FL (6.5-10.1) Neutrophils (%) (Auto) 76.6 % (45.0-75.0) 80.1 % (45.0-75.0) 80.5 % (45.0-75.0) Lymphocytes (%) (Auto) 13.4 % (20.0-45.0) 10.8 % (20.0-45.0) 8.8 % (20.0-45.0) Monocytes (%) (Auto) 7.8 % (1.0-10.0) 6.7 % (1.0-10.0) 8.0 % (1.0-10.0) Eosinophils (%) (Auto) 1.3 % (0.0-3.0) 1.4 % (0.0-3.0) 1.8 % (0.0-3.0) Basophils (%) (Auto) 0.8 % (0.0-2.0) 1.0 % (0.0-2.0) 0.9 % (0.0-2.0) Sodium Level 143 MMOL/L (136-145) 140 MMOL/L (136-145) 140 MMOL/L (136-145) Potassium Level 4.9 MMOL/L (3.5-5.1) 4.2 MMOL/L (3.5-5.1) 4.5 MMOL/L (3.5-5.1) Chloride Level 99 MMOL/L (98-107) 94 MMOL/L (98-107) 96 MMOL/L (98-107) Carbon Dioxide Level 25 MMOL/L (21-32) 29 MMOL/L (21-32) 26 MMOL/L (21-32) Anion Gap 19 mmol/L (5-15) 17 mmol/L (5-15) 18 mmol/L (5-15) Blood Urea Nitrogen 117 mg/dL (7-18) 71 mg/dL (7-18) 82 mg/dL (7-18) Creatinine 13.8 MG/DL (0.55-1.30) 9.5 MG/DL (0.55-1.30) 10.7 MG/DL (0.55-1.30) Estimat Glomerular Filtration Rate 3.6 mL/min (>60) 5.6 mL/min (>60) 4.9 mL/min (>60) Glucose Level 293 MG/DL (74-106) 174 MG/DL (74-106) 261 MG/DL (74-106) Calcium Level 9.8 MG/DL (8.5-10.1) 9.6 MG/DL (8.5-10.1) 10.0 MG/DL (8.5-10.1) Phosphorus Level 4.9 MG/DL (2.5-4.9) 6.7 MG/DL (2.5-4.9) Magnesium Level 3.3 MG/DL (1.8-2.4) 3.1 MG/DL (1.8-2.4) Total Bilirubin 0.5 MG/DL (0.2-1.0) 0.6 MG/DL (0.2-1.0) 0.6 MG/DL (0.2-1.0) Direct Bilirubin 0.2 MG/DL (0.0-0.3) 0.2 MG/DL (0.0-0.3) Aspartate Amino Transf (AST/SGOT) 27 U/L (15-37) 30 U/L (15-37) 30 U/L (15-37) Alanine Aminotransferase (ALT/SGPT) 12 U/L (12-78) 19 U/L (12-78) 17 U/L (12-78) Alkaline Phosphatase 124 U/L (46-116) 104 U/L (46-116) 105 U/L (46-116) Total Protein 9.8 G/DL (6.4-8.2) 10.6 G/DL (6.4-8.2) 10.1 G/DL (6.4-8.2) Albumin 3.0 G/DL (3.4-5.0) 3.5 G/DL (3.4-5.0) 3.3 G/DL (3.4-5.0) Random Vancomycin Level 28.0 ug/mL Prothrombin Time 12.2 SEC (9.30-11.50) Prothromb Time International Ratio 1.1 (0.9-1.1) Activated Partial Thromboplast Time 26 SEC (23-33) Globulin 7.1 g/dL Albumin/Globulin Ratio 0.5 (1.0-2.7) Height (Feet): 6 Height (Inches): 1.00 Weight (Pounds): 169 Objective General: nv, confused, sedated Heent: bilateral eye normal inspection, bilateral eye PERRL ++Ng Respiratory: normal breath sounds, no respiratory distress, intubated/vent +++ trach+++ Cardiovascular: regular rate, rhythm, no edema Gastrointestinal: normal inspection, soft, non-distended, peg+ Rectal: deferred Musculoskeletal: normal range of motion, non-tender, R fem cath++ Neurologic: alert, motor strength/tone normal, sensory intact, responsive, speech normal Skin: Decubitus/Ulcer - See RN skin exam. : jamaal+ Greg Cabral MD Jul 14, 2019 12:34
[2019-07-14] MEDS: Renvela 2400 mg pkt NG SCH ×3 (12:59→23:25)
[2019-07-14] MEDS: NOREPINEPHRINE BITARTRATE IV SCH ×3 (13:10)
[2019-07-14] MEDS: D5W IV SCH ×3 (13:10)
[2019-07-14] MEDS ORDERED: Renvela 2400 mg pkt NG SCH (14:00)
--- NOTE | 2019-07-14 14:05 | Cardiac Electrophysiology PN ---
Assessment/Plan Assessment/Plan 1. Elevated troponin. Low level and flat due to renal failure. On Aspirin. EF 60 %. 2. S/P Septic shock. On midodrine and Levo 3. ESRD, on HD per Dr. Cole. 4. COVID-19 positive pneumonia. On the Vent with 30% Fio2. S/P Tracheostomy 07/08/19 5. MRSA carrier. 6. COPD. 7. Anemia. 8. Dysphagia, S/P PEG 07/13/19 DW RN Subjective Subjective Covid positive x 3 PNA in ICU, on 30% Fio2, PEEP 5. On Levo 10 Mcg and midodrine. S/P Tracheostomy. S/P PEG 07/13/19 Underwent Left IG HD catheter placement and HD pending today Objective Last 24 Hour Vital Signs Date Time Temp Pulse Resp B/P (MAP) Pulse Ox O2 Delivery O2 Flow Rate FiO2 07/14/19 13:10 98/60 07/14/19 13:00 97 1 150/80 (103) 100 07/14/19 12:30 85 21 154/89 (110) 100 07/14/19 12:00 30 07/14/19 12:00 98.6 82 23 137/75 (95) 100 07/14/19 12:00 Mechanical Ventilator 07/14/19 11:30 79 25 124/74 (91) 98 07/14/19 11:30 81 26 100 Mechanical Ventilator 30 79 26 30 07/14/19 11:00 90 19 109/73 (85) 100 07/14/19 10:30 90 20 146/85 (105) 100 07/14/19 10:00 89 24 164/112 (129) 100 07/14/19 09:30 75 26 135/79 (97) 100 07/14/19 09:00 79 26 115/74 (88) 100 07/14/19 08:30 82 26 93/63 (73) 100 07/14/19 08:00 75 07/14/19 08:00 30 07/14/19 08:00 98.8 83 26 96/65 (75) 100 07/14/19 08:00 Mechanical Ventilator 07/14/19 07:30 82 26 100 Mechanical Ventilator 30 84 26 30 07/14/19 07:00 25 113/74 Mechanical Ventilator 30 07/14/19 07:00 114/74 07/14/19 07:00 82 26 101/64 (76) 100 07/14/19 06:30 83 25 113/74 (87) 100 07/14/19 06:00 24 146/83 Mechanical Ventilator 30 07/14/19 06:00 146/83 07/14/19 06:00 83 24 146/83 (104) 100 07/14/19 05:30 96 20 135/87 (103) 100 07/14/19 05:00 83 23 144/77 (99) 100 07/14/19 05:00 23 144/77 Mechanical Ventilator 30 07/14/19 05:00 144/73 07/14/19 04:30 78 26 118/70 (86) 100 07/14/19 04:00 Mechanical Ventilator 07/14/19 04:00 99.3 86 23 103/68 (80) 100 07/14/19 04:00 30 07/14/19 04:00 23 103/68 Mechanical Ventilator 30 07/14/19 04:00 103/68 07/14/19 04:00 83 07/14/19 03:30 85 26 100 Mechanical Ventilator 30 86 26 30 07/14/19 03:00 23 134/83 Mechanical Ventilator 30 07/14/19 03:00 134/83 07/14/19 03:00 87 23 134/83 (100) 100 07/14/19 02:00 138 13 141/92 (108) 100 07/14/19 02:00 24 141/92 Mechanical Ventilator 30 07/14/19 02:00 141/92 07/14/19 01:00 82 13 145/85 (105) 100 07/14/19 01:00 13 145/85 Mechanical Ventilator 30 07/14/19 01:00 145/85 07/14/19 00:30 87 19 136/82 (100) 100 07/14/19 00:00 98.2 87 26 94/73 (80) 100 07/14/19 00:00 Mechanical Ventilator 07/14/19 00:00 26 94/73 Mechanical Ventilator 30 07/14/19 00:00 94/73 07/14/19 00:00 84 07/14/19 00:00 30 07/13/19 23:37 94 26 100 Mechanical Ventilator 30 93 26 30 07/13/19 23:01 100.1 07/13/19 23:00 90 30 115/70 (85) 100 07/13/19 23:00 30 115/70 Mechanical Ventilator 30 07/13/19 23:00 115/70 07/13/19 22:00 97 25 97/63 (74) 100 20 22:00 25 97/63 Mechanical Ventilator 30 07/13/19 22:00 97/63 07/13/19 21:00 97 19 97/64 (75) 100 07/13/19 21:00 19 97/64 Mechanical Ventilator 30 07/13/19 21:00 97/64 07/13/19 20:00 100.3 100 29 87/60 (69) 100 07/13/19 20:00 19 95/75 Mechanical Ventilator 30 07/13/19 20:00 95/75 07/13/19 20:00 Mechanical Ventilator 07/13/19 20:00 95 07/13/19 20:00 30 07/13/19 19:00 26 80/59 Mechanical Ventilator 30 07/13/19 19:00 90/59 07/13/19 19:00 100 26 100 Mechanical Ventilator 30 99 26 30 07/13/19 19:00 103 26 117/68 (84) 100 07/13/19 18:00 106 26 125/78 (94) 100 07/13/19 18:00 26 86/58 Mechanical Ventilator 30 07/13/19 18:00 86/58 07/13/19 17:30 108 22 97/61 (73) 100 07/13/19 17:00 100.0 103 12 102/64 (77) 100 07/13/19 17:00 25 97/61 Mechanical Ventilator 30 07/13/19 17:00 97/61 07/13/19 16:30 105 27 101/69 (80) 100 07/13/19 16:00 105 28 99/66 (77) 96 07/13/19 16:00 29 99/66 Mechanical Ventilator 30 07/13/19 16:00 99/66 07/13/19 16:00 Mechanical Ventilator 07/13/19 16:00 103 07/13/19 16:00 30 07/13/19 15:30 105 26 110/69 (83) 96 07/13/19 15:08 107 31 100 Mechanical Ventilator 30 102 30 30 07/13/19 15:00 104 27 116/65 (82) 100 07/13/19 15:00 32 114/68 Mechanical Ventilator 30 07/13/19 15:00 114/68 07/13/19 14:18 102 26 100 07/13/19 14:17 97 26 100 Intake and Output 07/13/19 07/14/19 18:59 06:59 Intake Total 440.73 ml 284.839 ml Output Total 0 ml 0 ml Balance 440.73 ml 284.839 ml Free Water 30 ml IV Total 440.73 ml 194.839 ml Tube Feeding 0 ml 0 ml Other 60 ml Output Urine Total 0 ml 0 ml # Bowel Movements 2 Laboratory Tests Test 07/14/19 04:00 White Blood Count 16.6 K/UL (4.8-10.8) H Red Blood Count 3.36 M/UL (4.70-6.10) L Hemoglobin 9.8 G/DL (14.2-18.0) L Hematocrit 30.5 % (42.0-52.0) L Mean Corpuscular Volume 91 FL (80-99) Mean Corpuscular Hemoglobin 29.1 PG (27.0-31.0) Mean Corpuscular Hemoglobin Concent 32.1 G/DL (32.0-36.0) Red Cell Distribution Width 15.7 % (11.6-14.8) H Platelet Count 451 K/UL (150-450) H Mean Platelet Volume 6.8 FL (6.5-10.1) Neutrophils (%) (Auto) 80.5 % (45.0-75.0) H Lymphocytes (%) (Auto) 8.8 % (20.0-45.0) L Monocytes (%) (Auto) 8.0 % (1.0-10.0) Eosinophils (%) (Auto) 1.8 % (0.0-3.0) Basophils (%) (Auto) 0.9 % (0.0-2.0) Sodium Level 140 MMOL/L (136-145) Potassium Level 4.5 MMOL/L (3.5-5.1) Chloride Level 96 MMOL/L (98-107) L Carbon Dioxide Level 26 MMOL/L (21-32) Anion Gap 18 mmol/L (5-15) H Blood Urea Nitrogen 82 mg/dL (7-18) H Creatinine 10.7 MG/DL (0.55-1.30) H Estimat Glomerular Filtration Rate 4.9 mL/min (>60) Glucose Level 261 MG/DL (74-106) H Calcium Level 10.0 MG/DL (8.5-10.1) Phosphorus Level 6.7 MG/DL (2.5-4.9) H Magnesium Level 3.1 MG/DL (1.8-2.4) H Total Bilirubin 0.6 MG/DL (0.2-1.0) Direct Bilirubin 0.2 MG/DL (0.0-0.3) Aspartate Amino Transf (AST/SGOT) 30 U/L (15-37) Alanine Aminotransferase (ALT/SGPT) 17 U/L (12-78) Alkaline Phosphatase 105 U/L (46-116) Total Protein 10.1 G/DL (6.4-8.2) H Albumin 3.3 G/DL (3.4-5.0) L Objective HEAD AND NECK: No JVD. Tracheostomy in place. Left IJ HD catheter now in place LUNGS: Decreased breath sounds. CARDIOVASCULAR: Regular S1 and S2. Tachycardic. ABDOMEN: Soft. PEG in place EXTREMITIES: No pitting edema. Left FV Gio Engle MD Jul 14, 2019 14:05
[2019-07-14] MEDS: Meropenem 500 MG in NS 55 ML IVPB SCH (17:18)
[2019-07-14] MEDS: Dyna-Hex 2% Top Sol 2oz TOPIC SCH (20:26)
[2019-07-14] MEDS: Hydromorphone 0.5mg/0.5ml inj IVP PRN (20:26)
[2019-07-14] MEDS: Epoetin Alfa-EPBX(ESRD on dialysis)10,000 unit/ml vial SUBQ SCH (20:43)
--- NOTE | 2019-07-14 21:17 | General Progress Note ---
Assessment/Plan Problem List: (1) HTN (hypertension) ICD Codes: I10 - Essential (primary) hypertension SNOMED: 31237446 (2) CASSANDRA (acute kidney injury) ICD Codes: N17.9 - Acute kidney failure, unspecified SNOMED: 6779669, 79849655 (3) Anemia in chronic kidney disease (CKD) ICD Codes: N18.9 - Chronic kidney disease, unspecified; D63.1 - Anemia in chronic kidney disease SNOMED: 156289709 (4) Renal failure ICD Codes: N19 - Unspecified kidney failure SNOMED: 03527500 (5) Respiratory failure requiring intubation ICD Codes: J96.90 - Respiratory failure, unspecified, unspecified whether with hypoxia or hypercapnia; A41.89 - Other specified sepsis SNOMED: 477970038, 101792990 (6) Pneumonia due to COVID-19 virus ICD Codes: U07.1 - COVID-19; J12.89 - Other viral pneumonia SNOMED: 498503462, 887228375 (7) Sepsis due to severe acute respiratory syndrome coronavirus 2 (SARS-CoV-2) ICD Codes: U07.1 - COVID-19; A41.89 - Other specified sepsis SNOMED: 709306601, 605675859 Status: progressing, unchanged Assessment/Plan: leukocytosis peg gi s/p trach malnutrition no fever prn pressor still getting diaylsis covid positive pna resp failure Subjective ROS Limited/Unobtainable: Yes Allergies: Coded Allergies: No Known Allergies (Unverified , 05/28/19) Objective Last 24 Hour Vital Signs Date Time Temp Pulse Resp B/P (MAP) Pulse Ox O2 Delivery O2 Flow Rate FiO2 07/14/19 20:00 30 07/14/19 20:00 89 07/14/19 19:30 82 26 100 Mechanical Ventilator 30 86 28 30 07/14/19 19:30 81 20 119/76 (90) 100 07/14/19 19:00 20 118/78 Mechanical Ventilator 30 07/14/19 19:00 118/78 07/14/19 19:00 78 26 112/69 (83) 100 07/14/19 18:00 26 115/69 Mechanical Ventilator 30 07/14/19 18:00 89/60 07/14/19 18:00 76 25 115/69 (84) 100 07/14/19 17:00 93 23 98/59 (72) 100 07/14/19 17:00 26 98/59 Mechanical Ventilator 30 07/14/19 16:30 94 26 98/71 (80) 100 07/14/19 16:00 97 07/14/19 16:00 Mechanical Ventilator 07/14/19 16:00 20 111/65 Mechanical Ventilator 30 07/14/19 16:00 30 07/14/19 16:00 97.9 81 9 111/65 (80) 100 07/14/19 15:30 80 17 112/75 (87) 100 07/14/19 15:25 88 26 100 Mechanical Ventilator 30 88 26 30 07/14/19 15:00 17 123/79 Mechanical Ventilator 30 07/14/19 15:00 86 5 123/79 (94) 100 07/14/19 14:30 93 22 143/87 (105) 100 07/14/19 14:00 98 20 125/86 (99) 100 07/14/19 14:00 20 125/86 Mechanical Ventilator 30 07/14/19 14:00 125/86 07/14/19 13:10 98/60 07/14/19 13:00 20 144/86 Mechanical Ventilator 30 07/14/19 13:00 97 20 150/80 (103) 100 07/14/19 12:30 85 21 154/89 (110) 100 07/14/19 12:00 80 07/14/19 12:00 25 137/75 Mechanical Ventilator 30 07/14/19 12:00 30 07/14/19 12:00 98.6 82 23 137/75 (95) 100 07/14/19 12:00 Mechanical Ventilator 07/14/19 11:30 79 25 124/74 (91) 98 07/14/19 11:30 81 26 100 Mechanical Ventilator 30 79 26 30 07/14/19 11:00 90 19 109/73 (85) 100 07/14/19 11:00 22 109/73 Mechanical Ventilator 30 07/14/19 10:30 90 20 146/85 (105) 100 07/14/19 10:00 89 24 164/112 (129) 100 07/14/19 10:00 17 146/85 Mechanical Ventilator 30 07/14/19 09:30 75 26 135/79 (97) 100 07/14/19 09:00 79 26 115/74 (88) 100 07/14/19 09:00 20 130/72 Mechanical Ventilator 30 07/14/19 08:30 82 26 93/63 (73) 100 07/14/19 08:00 75 07/14/19 08:00 30 07/14/19 08:00 22 120/58 Mechanical Ventilator 30 07/14/19 08:00 98.8 83 26 96/65 (75) 100 07/14/19 08:00 Mechanical Ventilator 07/14/19 07:30 82 26 100 Mechanical Ventilator 30 84 26 30 07/14/19 07:00 25 113/74 Mechanical Ventilator 30 07/14/19 07:00 114/74 07/14/19 07:00 82 26 101/64 (76) 100 07/14/19 06:30 83 25 113/74 (87) 100 07/14/19 06:00 24 146/83 Mechanical Ventilator 30 07/14/19 06:00 146/83 07/14/19 06:00 83 24 146/83 (104) 100 07/14/19 05:30 96 20 135/87 (103) 100 07/14/19 05:00 83 23 144/77 (99) 100 07/14/19 05:00 23 144/77 Mechanical Ventilator 30 07/14/19 05:00 144/73 07/14/19 04:30 78 26 118/70 (86) 100 07/14/19 04:00 Mechanical Ventilator 07/14/19 04:00 99.3 86 23 103/68 (80) 100 07/14/19 04:00 30 07/14/19 04:00 23 103/68 Mechanical Ventilator 30 07/14/19 04:00 103/68 07/14/19 04:00 83 07/14/19 03:30 85 26 100 Mechanical Ventilator 30 86 26 30 07/14/19 03:00 23 134/83 Mechanical Ventilator 30 07/14/19 03:00 134/83 07/14/19 03:00 87 23 134/83 (100) 100 07/14/19 02:00 138 13 141/92 (108) 100 07/14/19 02:00 24 141/92 Mechanical Ventilator 30 07/14/19 02:00 141/92 07/14/19 01:00 82 13 145/85 (105) 100 07/14/19 01:00 13 145/85 Mechanical Ventilator 30 07/14/19 01:00 145/85 07/14/19 00:30 87 19 136/82 (100) 100 07/14/19 00:00 98.2 87 26 94/73 (80) 100 07/14/19 00:00 Mechanical Ventilator 07/14/19 00:00 26 94/73 Mechanical Ventilator 30 07/14/19 00:00 94/73 07/14/19 00:00 84 07/14/19 00:00 30 07/13/19 23:37 94 26 100 Mechanical Ventilator 30 93 26 30 07/13/19 23:01 100.1 07/13/19 23:00 90 30 115/70 (85) 100 07/13/19 23:00 30 115/70 Mechanical Ventilator 30 07/13/19 23:00 115/70 07/13/19 22:00 97 25 97/63 (74) 100 07/13/19 22:00 25 97/63 Mechanical Ventilator 30 07/13/19 22:00 97/63 Intake and Output 07/13/19 07/14/19 19:00 07:00 Intake Total 474.98 ml 267.079 ml Output Total 0 ml 0 ml Balance 474.98 ml 267.079 ml Free Water 30 ml IV Total 444.98 ml 207.079 ml Tube Feeding 0 ml 0 ml Other 60 ml Output Urine Total 0 ml 0 ml # Bowel Movements 2 Laboratory Tests 07/14/19 04:00: White Blood Count 16.6H, Red Blood Count 3.36L, Hemoglobin 9.8L, Hematocrit 30.5L, Mean Corpuscular Volume 91, Mean Corpuscular Hemoglobin 29.1, Mean Corpuscular Hemoglobin Concent 32.1, Red Cell Distribution Width 15.7H, Platelet Count 451H, Mean Platelet Volume 6.8, Neutrophils (%) (Auto) 80.5H, Lymphocytes (%) (Auto) 8.8L, Monocytes (%) (Auto) 8.0, Eosinophils (%) (Auto) 1.8, Basophils (%) (Auto) 0.9, Sodium Level 140, Potassium Level 4.5, Chloride Level 96L, Carbon Dioxide Level 26, Anion Gap 18H, Blood Urea Nitrogen 82H, Creatinine 10.7H, Estimat Glomerular Filtration Rate 4.9, Glucose Level 261H, Calcium Level 10.0, Phosphorus Level 6.7H, Magnesium Level 3.1H, Total Bilirubin 0.6, Direct Bilirubin 0.2, Aspartate Amino Transf (AST/SGOT) 30, Alanine Aminotransferase (ALT/SGPT) 17, Alkaline Phosphatase 105, Total Protein 10.1H, Albumin 3.3L Height (Feet): 6 Height (Inches): 1.00 Weight (Pounds): 169 Karishma Mulligan MD Jul 14, 2019 21:17
--- NOTE | 2019-07-14 21:20 | Surgery Progress Note ---
Surgery Progress Note Subjective Procedure Performed left internal jugular temporary Hemodialysis catheter insertion under ultrasound guidance Ultrasound guidance left neck Additional Comments Patient seen examined. Stable. Right groin line removed hemostatic now. Discussed with HD nurse new left line functional but poor flow may need longer line Objective Last 24 Hour Vital Signs Date Time Temp Pulse Resp B/P (MAP) Pulse Ox O2 Delivery O2 Flow Rate FiO2 07/14/19 20:00 30 07/14/19 20:00 89 07/14/19 19:30 82 26 100 Mechanical Ventilator 30 86 28 30 07/14/19 19:30 81 20 119/76 (90) 100 07/14/19 19:00 20 118/78 Mechanical Ventilator 30 07/14/19 19:00 118/78 07/14/19 19:00 78 26 112/69 (83) 100 07/14/19 18:00 26 115/69 Mechanical Ventilator 30 07/14/19 18:00 89/60 07/14/19 18:00 76 25 115/69 (84) 100 07/14/19 17:00 93 23 98/59 (72) 100 07/14/19 17:00 26 98/59 Mechanical Ventilator 30 07/14/19 16:30 94 26 98/71 (80) 100 07/14/19 16:00 97 07/14/19 16:00 Mechanical Ventilator 07/14/19 16:00 20 111/65 Mechanical Ventilator 30 07/14/19 16:00 30 07/14/19 16:00 97.9 81 9 111/65 (80) 100 07/14/19 15:30 80 17 112/75 (87) 100 07/14/19 15:25 88 26 100 Mechanical Ventilator 30 88 26 30 07/14/19 15:00 17 123/79 Mechanical Ventilator 30 07/14/19 15:00 86 5 123/79 (94) 100 07/14/19 14:30 93 22 143/87 (105) 100 07/14/19 14:00 98 20 125/86 (99) 100 07/14/19 14:00 20 125/86 Mechanical Ventilator 30 07/14/19 14:00 125/86 07/14/19 13:10 98/60 07/14/19 13:00 20 144/86 Mechanical Ventilator 30 07/14/19 13:00 97 20 150/80 (103) 100 6/3/20 12:30 85 21 154/89 (110) 100 07/14/19 12:00 80 07/14/19 12:00 25 137/75 Mechanical Ventilator 30 07/14/19 12:00 30 07/14/19 12:00 98.6 82 23 137/75 (95) 100 07/14/19 12:00 Mechanical Ventilator 07/14/19 11:30 79 25 124/74 (91) 98 07/14/19 11:30 81 26 100 Mechanical Ventilator 30 79 26 30 07/14/19 11:00 90 19 109/73 (85) 100 07/14/19 11:00 22 109/73 Mechanical Ventilator 30 07/14/19 10:30 90 20 146/85 (105) 100 07/14/19 10:00 89 24 164/112 (129) 100 07/14/19 10:00 17 146/85 Mechanical Ventilator 30 07/14/19 09:30 75 26 135/79 (97) 100 07/14/19 09:00 79 26 115/74 (88) 100 07/14/19 09:00 20 130/72 Mechanical Ventilator 30 07/14/19 08:30 82 26 93/63 (73) 100 07/14/19 08:00 75 07/14/19 08:00 30 07/14/19 08:00 22 120/58 Mechanical Ventilator 30 07/14/19 08:00 98.8 83 26 96/65 (75) 100 07/14/19 08:00 Mechanical Ventilator 07/14/19 07:30 82 26 100 Mechanical Ventilator 30 84 26 30 07/14/19 07:00 25 113/74 Mechanical Ventilator 30 07/14/19 07:00 114/74 07/14/19 07:00 82 26 101/64 (76) 100 07/14/19 06:30 83 25 113/74 (87) 100 07/14/19 06:00 24 146/83 Mechanical Ventilator 30 07/14/19 06:00 146/83 07/14/19 06:00 83 24 146/83 (104) 100 07/14/19 05:30 96 20 135/87 (103) 100 07/14/19 05:00 83 23 144/77 (99) 100 07/14/19 05:00 23 144/77 Mechanical Ventilator 30 07/14/19 05:00 144/73 07/14/19 04:30 78 26 118/70 (86) 100 07/14/19 04:00 Mechanical Ventilator 07/14/19 04:00 99.3 86 23 103/68 (80) 100 07/14/19 04:00 30 07/14/19 04:00 23 103/68 Mechanical Ventilator 30 07/14/19 04:00 103/68 07/14/19 04:00 83 07/14/19 03:30 85 26 100 Mechanical Ventilator 30 86 26 30 07/14/19 03:00 23 134/83 Mechanical Ventilator 30 07/14/19 03:00 134/83 07/14/19 03:00 87 23 134/83 (100) 100 07/14/19 02:00 138 13 141/92 (108) 100 07/14/19 02:00 24 141/92 Mechanical Ventilator 30 07/14/19 02:00 141/92 07/14/19 01:00 82 13 145/85 (105) 100 07/14/19 01:00 13 145/85 Mechanical Ventilator 30 07/14/19 01:00 145/85 07/14/19 00:30 87 19 136/82 (100) 100 07/14/19 00:00 98.2 87 26 94/73 (80) 100 07/14/19 00:00 Mechanical Ventilator 07/14/19 00:00 26 94/73 Mechanical Ventilator 30 07/14/19 00:00 94/73 07/14/19 00:00 84 07/14/19 00:00 30 07/13/19 23:37 94 26 100 Mechanical Ventilator 30 93 26 30 07/13/19 23:01 100.1 07/13/19 23:00 90 30 115/70 (85) 100 07/13/19 23:00 30 115/70 Mechanical Ventilator 30 07/13/19 23:00 115/70 07/13/19 22:00 97 25 97/63 (74) 100 07/13/19 22:00 25 97/63 Mechanical Ventilator 30 07/13/19 22:00 97/63 I&O Intake and Output 07/13/19 07/14/19 19:00 07:00 Intake Total 474.98 ml 267.079 ml Output Total 0 ml 0 ml Balance 474.98 ml 267.079 ml Free Water 30 ml IV Total 444.98 ml 207.079 ml Tube Feeding 0 ml 0 ml Other 60 ml Output Urine Total 0 ml 0 ml # Bowel Movements 2 Dressing: other Wound: other Drains: other Cardiovascular: RSR Respiratory: decreased breath sounds Abdomen: soft, non-tender, present bowel sounds Extremities: no edema, no tenderness, no cyanosis Laboratory Tests Test 07/14/19 04:00 White Blood Count 16.6 K/UL (4.8-10.8) H Red Blood Count 3.36 M/UL (4.70-6.10) L Hemoglobin 9.8 G/DL (14.2-18.0) L Hematocrit 30.5 % (42.0-52.0) L Mean Corpuscular Volume 91 FL (80-99) Mean Corpuscular Hemoglobin 29.1 PG (27.0-31.0) Mean Corpuscular Hemoglobin Concent 32.1 G/DL (32.0-36.0) Red Cell Distribution Width 15.7 % (11.6-14.8) H Platelet Count 451 K/UL (150-450) H Mean Platelet Volume 6.8 FL (6.5-10.1) Neutrophils (%) (Auto) 80.5 % (45.0-75.0) H Lymphocytes (%) (Auto) 8.8 % (20.0-45.0) L Monocytes (%) (Auto) 8.0 % (1.0-10.0) Eosinophils (%) (Auto) 1.8 % (0.0-3.0) Basophils (%) (Auto) 0.9 % (0.0-2.0) Sodium Level 140 MMOL/L (136-145) Potassium Level 4.5 MMOL/L (3.5-5.1) Chloride Level 96 MMOL/L (98-107) L Carbon Dioxide Level 26 MMOL/L (21-32) Anion Gap 18 mmol/L (5-15) H Blood Urea Nitrogen 82 mg/dL (7-18) H Creatinine 10.7 MG/DL (0.55-1.30) H Estimat Glomerular Filtration Rate 4.9 mL/min (>60) Glucose Level 261 MG/DL (74-106) H Calcium Level 10.0 MG/DL (8.5-10.1) Phosphorus Level 6.7 MG/DL (2.5-4.9) H Magnesium Level 3.1 MG/DL (1.8-2.4) H Total Bilirubin 0.6 MG/DL (0.2-1.0) Direct Bilirubin 0.2 MG/DL (0.0-0.3) Aspartate Amino Transf (AST/SGOT) 30 U/L (15-37) Alanine Aminotransferase (ALT/SGPT) 17 U/L (12-78) Alkaline Phosphatase 105 U/L (46-116) Total Protein 10.1 G/DL (6.4-8.2) H Albumin 3.3 G/DL (3.4-5.0) L Plan Problems: (1) Suspected COVID-19 virus infection (2) HTN (hypertension) (3) CASASNDRA (acute kidney injury) Assessment & Plan: Needs urgent HD needs access patient okay and consented see note will follow with recs new line placed discussed with team and nephrology HD line functional when checked has TPA now please use appropriately Cathflo used again this flow during dialysis on 430 was low. Will monitor may need line change 5/4 plan for HD as per renal may need to take fluid off with HD edema anasarca dressings saturated and changed will monitor cont with HD IJ left line placed for HD given extent of prior line in place. leukocytosis blood cx negative may need to change out line (4) Anemia in chronic kidney disease (CKD) (5) Anemia (6) Renal failure (7) Suspected COVID-19 virus infection Assessment & Plan: Pt deconditioned and despite all skin preventions Pt noted to have developed several pressure injuries. . Stable dry eschar noted to clefts of R and L ears. No erythema noted . DTPI noted to L trochanter. Base of injury is maroon in colour with marginal erythema along borders. Partially opened DTPI Sacrum, R and L Buttocks. Base of wound is maroon with two small open wounds L sacrum and L buttocks. Pt has an APM/MOMO Mattress overlay and is being positioned with pillows as per tolerance and within protocols. worsening despite medical efforts will cont to provide therapy Tx.Plan: Apply Cavilon Skin Barrier to both ears Daily and prn. Apply Moisture Barrier Paste to Sacrum,R and L Buttocks. Cover with Optifoam drsgs. Change every 3 days and PRN. Apply Cavilon Skin Barrier to R and L trochanter. Cover each site with Optifoam drsgs.Change every 7 days and PRN. Apply Cavilon Skin Barrier to both heels. Cover each heel with Optifoam drsg. Change every 7 days and prn. Off-load heels with pillow. Reposition at least every 2hours or as tolerated. APM/MOMO Mattress overlay. (8) COVID-19 Assessment & Plan: COVID + c diff negative febrile leukocytosis renal insufficiency see above cont resp care Rx as per ID worsening on vent support now cxr noted on pressors prognosis guarded repeat covid ++ weaning vent and pressors off slowly showing improvement slowly recovering will need trach as unable to wean vent safely called and spoke with country conservatorship. consent obtained s/p trach pending peg Yaniv Mast Jul 14, 2019 21:20
--- NOTE | 2019-07-14 21:21 | Operative Note - PDOC ---
Operative Note Operative Note Pre-op Diagnosis: COVID + sepsis respiratory insufficiency renal insufficiency Procedure: Right femoral temporary hemodialysis catheter removal Post-op Diagnosis: same as pre-op Surgeon: niyah Specimen: none Complications: none Condition: unstable Fluids: see records Estimated Blood Loss: minimal Drains: none Implant(s) used?: No Indications for Procedure Patient had a left internal jugular catheter placement given right line in place for prolonged period time still requiring dialysis Description of Procedure Patient made comfortable bedside after left IJ line was placed and x-ray confirmed appropriate positioning and functional planned removal right femoral temporary catheter. Dressings removed suture was cut line removed pressure held for approximately 20 minutes until hemostasis obtained. Site monitored and hemostatic. Will monitor closely. Thank you Yaniv Mast Jul 14, 2019 21:21
[2019-07-15] VITALS (37 sets, daily range): BP systolic 73–149; BP diastolic 52–96
--- NOTE | 2019-07-15 01:58 | Pulmonolgy Critical Care Note ---
Critical Care - Asmt/Plan Assessment/Plan: Pulmonary CCM Progress Note HPI: Patient is a 68 year old man, senior care resident, admitted c/o shortness of breath, cough, noted to have Covid 19 Pneumonia, Respiratory Failure S/p intubation, CXR improving infiltrates ETT adjusted Septic Shock, pressors off Preserved EF FIO2 40%-50%, P5, adequate O2 sats, remains on ACVC, s/p Tracheostomy, CXR stable, sp PEG PRN pressors Seen earlier on 07/14/2019 ID following Past Medical History: COPD, CKD, Hypertension, Anemia Allergies: No Known Allergies Improving Pulmonary Status on HD Physical Exam Vital Signs Noted Sedated on ventilator WDWN, no distress HEENT: NCAT,moist mm Chest: Occasional rhonchi Heart: HS1, HS2, RRR Abdomen: SNTND, no masses Extremities: Well perfused, no edema 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 [employer]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: No focal signs, no seizures, sedated Impression: COVID-19 virus infection Pneumonia Respiratory failure on ventilator, wean as tolerated CKD - on HD Hypotension on pressors previously Cardiomegaly Lymphopenia Elevated AST COPD Chronic Kidney Disease - HD H/o Hypertension Worsening anemia Plan: Tolerated Tracheostomy Antibiotics per ID HD Pressors PRN ACVC - wean as tolerated [employer] Medications 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 Monitor cultures/viral studies PPX Hemodialysis per Renal Psychiatry following [facility] - [facility] requested for when available, [facility] - not available as yet Laboratory Tests Noted: CXR: Hypoventilatory exam, interstitial changes, cardiomegaly, improving infiltrates Subjective ROS Limited/Unobtainable: No Constitutional: Denies: fever Respiratory: Reports: dry cough, shortness of breath Gastrointestinal/Abdominal: Reports: diarrhea, other - colace was stopped Psychiatric: Reports: other - refuses labs Allergies: Coded Allergies: No Known Allergies (Unverified , 05/28/19) All Systems: reviewed and negative except above Labs noted Critical Care - Objective Last 24 Hour Vital Signs Date Time Temp Pulse Resp B/P (MAP) Pulse Ox O2 Delivery O2 Flow Rate FiO2 07/15/19 01:15 82 20 116/74 (88) 100 07/15/19 01:00 74 26 140/78 (98) 100 07/15/19 00:30 77 26 115/77 (90) 100 07/15/19 00:00 26 118/73 Mechanical Ventilator 30 07/15/19 00:00 118/73 6/4/20 00:00 Mechanical Ventilator 07/15/19 00:00 98.3 86 26 134/84 (101) 100 07/14/19 23:30 78 25 114/69 (84) 100 07/14/19 23:30 78 26 100 Mechanical Ventilator 30 80 26 30 07/14/19 23:00 80 22 116/75 (89) 100 07/14/19 23:00 25 116/54 Mechanical Ventilator 30 07/14/19 23:00 116/75 07/14/19 22:30 78 24 114/69 (84) 100 07/14/19 22:00 24 120/78 Mechanical Ventilator 30 07/14/19 22:00 120/78 07/14/19 22:00 74 22 120/78 (92) 100 07/14/19 21:45 76 24 102/68 (79) 100 07/14/19 21:30 77 22 97/68 (78) 100 07/14/19 21:28 97.9 07/14/19 21:15 82 26 105/69 (81) 100 07/14/19 21:00 26 118/71 Mechanical Ventilator 30 07/14/19 21:00 118/71 07/14/19 21:00 84 22 118/71 (87) 100 07/14/19 20:45 85 10 94/62 (73) 100 07/14/19 20:30 81 21 113/72 (86) 100 07/14/19 20:00 98.6 83 24 128/73 (91) 100 07/14/19 20:00 30 07/14/19 20:00 89 07/14/19 20:00 26 128/73 Mechanical Ventilator 30 07/14/19 20:00 128/73 07/14/19 20:00 Mechanical Ventilator 07/14/19 19:30 82 26 100 Mechanical Ventilator 30 86 28 30 07/14/19 19:30 81 20 119/76 (90) 100 07/14/19 19:00 20 118/78 Mechanical Ventilator 30 07/14/19 19:00 118/78 07/14/19 19:00 78 26 112/69 (83) 100 07/14/19 18:00 26 115/69 Mechanical Ventilator 30 07/14/19 18:00 89/60 07/14/19 18:00 76 25 115/69 (84) 100 6/3/20 17:00 93 23 98/59 (72) 100 07/14/19 17:00 26 98/59 Mechanical Ventilator 30 07/14/19 16:30 94 26 98/71 (80) 100 07/14/19 16:00 97 07/14/19 16:00 Mechanical Ventilator 07/14/19 16:00 20 111/65 Mechanical Ventilator 30 07/14/19 16:00 30 07/14/19 16:00 97.9 81 9 111/65 (80) 100 07/14/19 15:30 80 17 112/75 (87) 100 07/14/19 15:25 88 26 100 Mechanical Ventilator 30 88 26 30 07/14/19 15:00 17 123/79 Mechanical Ventilator 30 07/14/19 15:00 86 5 123/79 (94) 100 07/14/19 14:30 93 22 143/87 (105) 100 07/14/19 14:00 98 20 125/86 (99) 100 07/14/19 14:00 20 125/86 Mechanical Ventilator 30 07/14/19 14:00 125/86 07/14/19 13:10 98/60 07/14/19 13:00 20 144/86 Mechanical Ventilator 30 07/14/19 13:00 97 20 150/80 (103) 100 07/14/19 12:30 85 21 154/89 (110) 100 07/14/19 12:00 80 07/14/19 12:00 25 137/75 Mechanical Ventilator 30 07/14/19 12:00 30 07/14/19 12:00 98.6 82 23 137/75 (95) 100 07/14/19 12:00 Mechanical Ventilator 07/14/19 11:30 79 25 124/74 (91) 98 07/14/19 11:30 81 26 100 Mechanical Ventilator 30 79 26 30 07/14/19 11:00 90 19 109/73 (85) 100 07/14/19 11:00 22 109/73 Mechanical Ventilator 30 07/14/19 10:30 90 20 146/85 (105) 100 07/14/19 10:00 89 24 164/112 (129) 100 07/14/19 10:00 17 146/85 Mechanical Ventilator 30 07/14/19 09:30 75 26 135/79 (97) 100 07/14/19 09:00 79 26 115/74 (88) 100 07/14/19 09:00 20 130/72 Mechanical Ventilator 30 07/14/19 08:30 82 26 93/63 (73) 100 07/14/19 08:00 75 07/14/19 08:00 30 07/14/19 08:00 22 120/58 Mechanical Ventilator 30 07/14/19 08:00 98.8 83 26 96/65 (75) 100 07/14/19 08:00 Mechanical Ventilator 07/14/19 07:30 82 26 100 Mechanical Ventilator 30 84 26 30 07/14/19 07:00 25 113/74 Mechanical Ventilator 30 07/14/19 07:00 114/74 07/14/19 07:00 82 26 101/64 (76) 100 07/14/19 06:30 83 25 113/74 (87) 100 07/14/19 06:00 24 146/83 Mechanical Ventilator 30 07/14/19 06:00 146/83 07/14/19 06:00 83 24 146/83 (104) 100 07/14/19 05:30 96 20 135/87 (103) 100 07/14/19 05:00 83 23 144/77 (99) 100 07/14/19 05:00 23 144/77 Mechanical Ventilator 30 07/14/19 05:00 144/73 07/14/19 04:30 78 26 118/70 (86) 100 07/14/19 04:00 Mechanical Ventilator 07/14/19 04:00 99.3 86 23 103/68 (80) 100 07/14/19 04:00 30 07/14/19 04:00 23 103/68 Mechanical Ventilator 30 07/14/19 04:00 103/68 07/14/19 04:00 83 07/14/19 03:30 85 26 100 Mechanical Ventilator 30 86 26 30 07/14/19 03:00 23 134/83 Mechanical Ventilator 30 07/14/19 03:00 134/83 07/14/19 03:00 87 23 134/83 (100) 100 07/14/19 02:00 138 13 141/92 (108) 100 07/14/19 02:00 24 141/92 Mechanical Ventilator 30 07/14/19 02:00 141/92 Accucheck: 160 Critical Care - Subjective ROS Limited/Unobtainable: No Condition: stable FI02: 30 Vent Support Breath Rate: 26 Vent Support Mode: AC Vent Tidal Volume: 500 Sputum Amount: Small PEEP: 5.0 PIP: 23 Tube Feeding Amount: 25 I&O: Intake and Output 07/14/19 07/15/19 19:00 07:00 Intake Total 678.84 ml 565.935 ml Output Total 0 ml Balance 678.84 ml 565.935 ml Free Water 60 ml 240 ml IV Total 498.84 ml 55.935 ml Tube Feeding 120 ml 110 ml Other 160 ml Output Urine Total 0 ml # Bowel Movements 1 ET-Tube: 7.5 ET Position: 24 Arturo Mckeon MD Jul 15, 2019 01:58
[2019-07-15] MEDS: Haloperidol Lactate 5 MG in D5W 55 ML IVPB PRN (02:36)
[2019-07-15] MEDS: Albuterol 90mcg Inhaler 8gm INH SCH ×6 (03:39→23:36)
[2019-07-15 04:44] LABS: BASOPHILS % (AUTO) 0.9 % (0.0-2.0); EOSINOPHILS % (AUTO) 3.8 % (0.0-3.0); HEMATOCRIT 31.2 % (42.0-52.0); LYMPHOCYTES % (AUTO) 9.7 % (20.0-45.0); MEAN CORPUSCULAR VOLUME 90 FL (80-99); MONOCYTES % (AUTO) 6.7 % (1.0-10.0); NEUTROPHILS % (AUTO) 78.8 % (45.0-75.0); PLATELET COUNT 358 K/UL (150-450); RED BLOOD COUNT 3.47 M/UL (4.70-6.10); RED CELL DISTRIBUTION WIDTH 15.5 % (11.6-14.8); WHITE BLOOD COUNT 12.4 K/UL (4.8-10.8)
[2019-07-15 05:23] LABS: ALANINE AMINOTRANSFERASE 13 U/L (12-78); ALBUMIN 2.9 G/DL (3.4-5.0); ALBUMIN/GLOBULIN RATIO 0.4 (1.0-2.7); ALKALINE PHOSPHATASE 107 U/L (46-116); ANION GAP 21 mmol/L (5-15); ASPARTATE AMINO TRANSFERASE 22 U/L (15-37); BILIRUBIN,TOTAL 0.5 MG/DL (0.2-1.0); BLOOD UREA NITROGEN 85 mg/dL (7-18); CALCIUM 9.5 MG/DL (8.5-10.1); CARBON DIOXIDE 23 MMOL/L (21-32); CHLORIDE 92 MMOL/L (98-107); CREATININE 10.9 MG/DL (0.55-1.30); POTASSIUM 4.5 MMOL/L (3.5-5.1); SODIUM 136 MMOL/L (136-145)
[2019-07-15] MEDS: Renvela 2400 mg pkt NG SCH ×4 (05:51→23:38)
[2019-07-15] MEDS: NovoLOG Insulin Flexpen SUBQ SCH ×4 (05:51→23:39)
[2019-07-15] MEDS: fentaNYL 2500mcg/NS 250ml IV SCH (06:00)
[2019-07-15] MEDS: Pantoprazole Inj IVP SCH (08:16)
[2019-07-15] MEDS: Midodrine 10mg tab NG SCH ×3 (08:16→17:25)
[2019-07-15] MEDS: Enoxaparin 30mg Inj SUBQ SCH (08:17)
--- NOTE | 2019-07-15 09:33 | Nephrology Progress Note ---
Assessment/Plan Problem List: (1) CASSANDRA (acute kidney injury) (2) Anemia in chronic kidney disease (CKD) (3) HTN (hypertension) (4) COVID-19 Assessment Acute renal failure most likely superimposed on chronic kidney disease Suspected COVID-19 virus infection Possible Pneumonia, lymphopenia, elevated AST Cardiomegaly, possible CHF COPD Hypertension Anemia, most likely related to chronic kidney disease Plan July 14: Patient currently on dialysis. This is continuation of dialysis from yesterday as yesterday's dialysis was cut short due to catheter malfunction. Labs and medication reviewed. Continue per consultants. July 13: Patient currently on hemodialysis. The dialysis catheter which is a intrajugular Kamlesh has poor flow. Will try TPA. Continue per consultants. July 12: Due for PEG today. Due for dialysis tomorrow. Continue per consultants. Discussed with RN. July 11: Plan for dialysis today. Discussed with RN. Data reviewed. July 10: Plan for dialysis tomorrow July 11. Waiting for consent to proceed with PEG. Continue per consultants. Medication reviewed. Labs reviewed. Discussed with RN. July 09: Dialyzed yesterday. Labs reviewed. Medication reviewed. Next hemodialysis July 11. July 08: Patient has tracheostomy now. Connected to ventilator. Due for dialysis today. Continue per consultants. Discussed with SHANIQUE Romero. July 07: Patient is due for tracheostomy today. Patient was last dialyzed July 05. Will order dialysis for tomorrow. July 06: Patient is intubated on ventilator however the plan is to extubate today. Patient was dialysis yesterday July 05. The dialysis time was cut short due to patient's respiratory distress. Only 1 L was removed during dialysis yesterday. Today's lab reviewed. Continue per consultants. Will arrange for dialysis as needed. July 05: Patient due for dialysis today. Remains intubated. Will schedule permacath placement in a.m. blood cultures on July 04 are negative. July 04: Patient was dialyzed yesterday. Due for dialysis tomorrow. Continues to be intubated. After tomorrow's dialysis will order a permacath. July 03: Dialysis is about to be started now Continues to be intubated Will plan to remove the femoral dialysis catheter and exchanged for a new temporary catheter per ID recommendation We will check surveillance blood culture tomorrow July 02: Patient was dialyzed yesterday and due for dialysis tomorrow Stable from renal standpoint W on dialysis Continue per consultants, weaning....... etc. July 01: Dialysis today Other status unchanged June 30: Due for dialysis tomorrow Remains intubated on ventilator Labs and medication reviewed Discussed with RN Stable from renal standpoint of view June 29: Dialyzed yesterday Due for dialysis tomorrow Stable from renal standpoint to view Keeps failing weaning process June 28: Patient due for dialysis today Stable from renal standpoint to view Continue per consultants June 27: Labs reviewed Due due for dialysis June 28 Discussed with SHANIQUE Dick Continue per consultants Remains intubated on ventilator June 26 Labs reviewed Dialyzed yesterday Started on weaning today Continue to monitor renal parameters June 25: On dialysis now Potassium supplement implemented Continue per consultants Next dialysis June 27June 15: Status unchanged Dialyzed yesterday will dialyze again tomorrow Potassium supplements given Discussed with RN June 14: Due dialysis today Status: Remains intubated on ventilator June 22: Status unchanged Dialyzed yesterday and duefordialysistomorrow Serum sodium stable today June 21 Remains intubated on ventilator Due dialysis today Emphasized high sodium bath for dialysis June 20: Remains intubated on ventilator Dialyzed June 19 next dialysis June 21 Serum sodium 128, will give 250 cc 3% saline Remains full code Discussed with RN Iron panel ordered June 19: Discussed with RN. Patient due for dialysis today. Continue pulmonary support. Remains full code. June 18: Patient dialyzed yesterday June 17 Serum sodium improved but still low Arrange for dialysis tomorrow June 19 Continue per consultants June 17: Due for dialysis today Today's lab reviewed, low serum sodium noted, Emphasized on high sodium bath to dialysis nurse Discussed with SHANIQUE Yuen June 16: Dialyzed yesterday Remains intubated Labs reviewed, serum sodium 131 Plan to dialyze tomorrow June 17 with high sodium bath Discussed with SHANIQUE Yuen June 6: Due for dialysis today Labs reviewed Discussed with RN Transfuse 1 unit of packed RBCs today for low hemoglobin of 7.1 June 5: Blood pressure well maintained Receive dialysis June 13 next hemodialysis June 15June 4: Discussed with RN in ICU Patient did not receive proper dialysis yesterday due to dialysis catheter malfunction Catheter to be adjusted today and dialyzed to be resumed today Continue per consultants Positive for COVID 28 June 2: Patient now intubated on mechanical ventilation Discussed with SHANIQUE Yuen, today May 3 Patient received dialysis yesterday June 10 next hemodialysis June 12 Blood pressure better maintained Today's labs reviewed Continue per consultants Previously patient received dialysis last evening June 05, next dialysis June 07 which was incomplete due to patient's hypotension Will start on midodrine for blood pressure support. Meanwhile continue other pressors as needed Previously Patient is doing poorly, septic, white blood cells are rising, Hypotension somewhat improved We will keep n.p.o. , NG tube for medications, and change medication to IV as needed Patient remains full code Monitor vancomycin level Previously: Patient pulled out his femoral catheter yesterday June 03 which was reinserted by Dr. Mast Patient scheduled for dialysis again June 04, which again was not done due to dialysis nurse citing catheter malfunction Meanwhile continue management per ID, pulmonary , and psych. Meanwhile white blood cell count is rising. Patient blood pressure borderline low. Will check ABG Previously May 31 : I believe patient need dialysis treatment He however needs to competency assessment if can make decisions or not I will communicate with Dr. Mulligan Previously: Per pulmonary and ID advice Adjust blood pressure medication Renal diet Anemia work-up 2D echocardiogram refused Kidney ultrasound refused Jules catheter Urine studies Per orders Subjective ROS Limited/Unobtainable: Yes Objective Objective Last 24 Hour Vital Signs Date Time Temp Pulse Resp B/P (MAP) Pulse Ox O2 Delivery O2 Flow Rate FiO2 07/15/19 07:47 102 30 100 Mechanical Ventilator 30 102 32 30 30 07/15/19 07:46 100 07/15/19 07:00 26 103/65 Mechanical Ventilator 30 07/15/19 07:00 103/65 07/15/19 07:00 100 23 102/65 (77) 100 07/15/19 06:00 93 26 102/69 (80) 100 07/15/19 06:00 26 102/64 Mechanical Ventilator 30 07/15/19 06:00 26 102/64 Mechanical Ventilator 30 07/15/19 06:00 102/64 07/15/19 05:45 101 26 92/56 (68) 100 07/15/19 05:30 96 26 110/69 (83) 100 07/15/19 05:00 98 24 90/53 (65) 100 07/15/19 05:00 27 90/53 Mechanical Ventilator 30 07/15/19 05:00 90/53 07/15/19 04:45 101 24 112/65 (81) 100 07/15/19 04:30 105 24 90/61 (71) 100 07/15/19 04:15 104 26 73/55 (61) 100 07/15/19 04:00 Mechanical Ventilator 07/15/19 04:00 30 07/15/19 04:00 92 07/15/19 04:00 26 73/55 Mechanical Ventilator 30 07/15/19 04:00 76/56 07/15/19 04:00 98.5 106 23 76/52 (60) 100 07/15/19 03:30 106 31 100 Mechanical Ventilator 30 107 32 30 07/15/19 03:30 106 26 112/64 (80) 100 07/15/19 03:00 92 22 131/74 (93) 100 07/15/19 03:00 26 131/73 Mechanical Ventilator 30 07/15/19 03:00 131/73 07/15/19 02:45 80 25 115/76 (89) 100 07/15/19 02:30 82 24 112/73 (86) 100 07/15/19 02:15 85 27 108/71 (83) 100 07/15/19 02:00 88 23 113/71 (85) 100 07/15/19 02:00 24 113/71 Mechanical Ventilator 30 07/15/19 02:00 113/71 07/15/19 01:45 86 25 131/79 (96) 100 07/15/19 01:30 83 25 105/69 (81) 100 07/15/19 01:15 82 20 116/74 (88) 100 07/15/19 01:00 74 26 140/78 (98) 100 07/15/19 01:00 26 140/78 Mechanical Ventilator 30 07/15/19 01:00 140/78 07/15/19 00:30 77 26 115/77 (90) 100 07/15/19 00:00 86 07/15/19 00:00 26 118/73 Mechanical Ventilator 30 07/15/19 00:00 118/73 07/15/19 00:00 Mechanical Ventilator 07/15/19 00:00 30 07/15/19 00:00 98.3 86 26 134/84 (101) 100 07/14/19 23:30 78 25 114/69 (84) 100 07/14/19 23:30 78 26 100 Mechanical Ventilator 30 80 26 30 07/14/19 23:00 80 22 116/75 (89) 100 07/14/19 23:00 25 116/54 Mechanical Ventilator 30 07/14/19 23:00 116/75 07/14/19 22:30 78 24 114/69 (84) 100 07/14/19 22:00 24 120/78 Mechanical Ventilator 30 07/14/19 22:00 120/78 07/14/19 22:00 74 22 120/78 (92) 100 07/14/19 21:45 76 24 102/68 (79) 100 07/14/19 21:30 77 22 97/68 (78) 100 07/14/19 21:28 97.9 07/14/19 21:15 82 26 105/69 (81) 100 07/14/19 21:00 26 118/71 Mechanical Ventilator 30 07/14/19 21:00 118/71 07/14/19 21:00 84 22 118/71 (87) 100 07/14/19 20:45 85 10 94/62 (73) 100 07/14/19 20:30 81 21 113/72 (86) 100 07/14/19 20:00 98.6 83 24 128/73 (91) 100 07/14/19 20:00 30 07/14/19 20:00 89 07/14/19 20:00 26 128/73 Mechanical Ventilator 30 07/14/19 20:00 128/73 07/14/19 20:00 Mechanical Ventilator 07/14/19 19:30 82 26 100 Mechanical Ventilator 30 86 28 30 07/14/19 19:30 81 20 119/76 (90) 100 07/14/19 19:00 20 118/78 Mechanical Ventilator 30 07/14/19 19:00 118/78 07/14/19 19:00 78 26 112/69 (83) 100 07/14/19 18:00 26 115/69 Mechanical Ventilator 30 07/14/19 18:00 89/60 07/14/19 18:00 76 25 115/69 (84) 100 07/14/19 17:00 93 23 98/59 (72) 100 07/14/19 17:00 26 98/59 Mechanical Ventilator 30 07/14/19 16:30 94 26 98/71 (80) 100 6/3/20 16:00 97 07/14/19 16:00 Mechanical Ventilator 07/14/19 16:00 20 111/65 Mechanical Ventilator 30 07/14/19 16:00 30 07/14/19 16:00 97.9 81 9 111/65 (80) 100 07/14/19 15:30 80 17 112/75 (87) 100 07/14/19 15:25 88 26 100 Mechanical Ventilator 30 88 26 30 07/14/19 15:00 17 123/79 Mechanical Ventilator 30 07/14/19 15:00 86 5 123/79 (94) 100 07/14/19 14:30 93 22 143/87 (105) 100 07/14/19 14:00 98 20 125/86 (99) 100 07/14/19 14:00 20 125/86 Mechanical Ventilator 30 07/14/19 14:00 125/86 07/14/19 13:10 98/60 07/14/19 13:00 20 144/86 Mechanical Ventilator 30 07/14/19 13:00 97 20 150/80 (103) 100 07/14/19 12:30 85 21 154/89 (110) 100 07/14/19 12:00 80 07/14/19 12:00 25 137/75 Mechanical Ventilator 30 07/14/19 12:00 30 07/14/19 12:00 98.6 82 23 137/75 (95) 100 07/14/19 12:00 Mechanical Ventilator 07/14/19 11:30 79 25 124/74 (91) 98 07/14/19 11:30 81 26 100 Mechanical Ventilator 30 79 26 30 07/14/19 11:00 90 19 109/73 (85) 100 07/14/19 11:00 22 109/73 Mechanical Ventilator 30 07/14/19 10:30 90 20 146/85 (105) 100 07/14/19 10:00 89 24 164/112 (129) 100 07/14/19 10:00 17 146/85 Mechanical Ventilator 30 Intake and Output 07/14/19 07/15/19 19:00 07:00 Intake Total 678.84 ml 1178.685 ml Output Total 0 ml 0 ml Balance 678.84 ml 1178.685 ml Free Water 60 ml 520 ml IV Total 498.84 ml 128.685 ml Tube Feeding 120 ml 210 ml Other 320 ml Output Urine Total 0 ml 0 ml Stool Total 0 ml # Bowel Movements 1 Laboratory Tests 07/15/19 04:11: White Blood Count 12.4H, Red Blood Count 3.47L, Hemoglobin 10.0L, Hematocrit 31.2L, Mean Corpuscular Volume 90, Mean Corpuscular Hemoglobin 28.9, Mean Corpuscular Hemoglobin Concent 32.1, Red Cell Distribution Width 15.5H, Platelet Count 358, Mean Platelet Volume 6.5, Neutrophils (%) (Auto) 78.8H, Lymphocytes (%) (Auto) 9.7L, Monocytes (%) (Auto) 6.7, Eosinophils (%) (Auto) 3.8H, Basophils (%) (Auto) 0.9, Sodium Level 136, Potassium Level 4.5, Chloride Level 92L, Carbon Dioxide Level 23, Anion Gap 21H, Blood Urea Nitrogen 85H, Creatinine 10.9H, Estimat Glomerular Filtration Rate 4.7, Glucose Level 168H, Uric Acid 9.3H, Calcium Level 9.5, Phosphorus Level 7.0H, Magnesium Level 2.7H, Total Bilirubin 0.5, Aspartate Amino Transf (AST/SGOT) 22, Alanine Aminotransferase (ALT/SGPT) 13, Alkaline Phosphatase 107, Troponin I 0.005, C- Reactive Protein, Quantitative 8.2H, Pro-B-Type Natriuretic Peptide 69797T, Total Protein 9.5H, Albumin 2.9L, Globulin 6.6, Albumin/Globulin Ratio 0.4L Height (Feet): 6 Height (Inches): 1.00 Weight (Pounds): 180 General Appearance: no apparent distress EENT: other - Trached and vent Cardiovascular: tachycardia Respiratory/Chest: decreased breath sounds Abdomen: distended, other - Has PEG Objective No change Mic Cole MD Jul 15, 2019 09:33
--- NOTE | 2019-07-15 10:07 | Infectious Diseases Prog Note ---
Assessment/Plan Assessment/Plan IMPRESSION: 1. COVID19 pneumonia Positive: 05/27, 05/31 , 06/05, 06/09 ,06/17, 06/19, 06/23, 06/27, 07/03 2. MRSA carrier. 3. Chronic kidney disease , end-stage renal disease. 4. COPD. 5. Hypertension. 6. Anemia. 7. Hypothyroidism. 8. Hyperlipidemia. 9. Major depression. 10. Leukocytosis 11. Hypotension 12. Hepatitis C 13. Hyperuricemia 14. Diarrhea 15. septic shock 16. Leukocytosis 17. Bacteremia with Staph epidermidis Subsequent cultures negative RECOMMENDATIONS: Observe off antibiotic Finished hydroxychloroquine. 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 Subjective ROS Limited/Unobtainable: Yes Constitutional: Denies: fever Neurologic: Reports: confusion, other - on restraint Allergies: Coded Allergies: No Known Allergies (Unverified , 05/28/19) Objective Vital Signs Last 24 Hour Vital Signs Date Time Temp Pulse Resp B/P (MAP) Pulse Ox O2 Delivery O2 Flow Rate FiO2 07/15/19 08:00 30 07/15/19 07:47 102 30 100 Mechanical Ventilator 30 102 32 30 30 07/15/19 07:46 100 07/15/19 07:00 26 103/65 Mechanical Ventilator 30 07/15/19 07:00 103/65 07/15/19 07:00 100 23 102/65 (77) 100 07/15/19 06:00 93 26 102/69 (80) 100 07/15/19 06:00 26 102/64 Mechanical Ventilator 30 07/15/19 06:00 26 102/64 Mechanical Ventilator 30 07/15/19 06:00 102/64 07/15/19 05:45 101 26 92/56 (68) 100 07/15/19 05:30 96 26 110/69 (83) 100 07/15/19 05:00 98 24 90/53 (65) 100 07/15/19 05:00 27 90/53 Mechanical Ventilator 30 07/15/19 05:00 90/53 07/15/19 04:45 101 24 112/65 (81) 100 07/15/19 04:30 105 24 90/61 (71) 100 07/15/19 04:15 104 26 73/55 (61) 100 07/15/19 04:00 Mechanical Ventilator 07/15/19 04:00 30 07/15/19 04:00 92 07/15/19 04:00 26 73/55 Mechanical Ventilator 30 07/15/19 04:00 76/56 07/15/19 04:00 98.5 106 23 76/52 (60) 100 07/15/19 03:30 106 31 100 Mechanical Ventilator 30 107 32 30 07/15/19 03:30 106 26 112/64 (80) 100 07/15/19 03:00 92 22 131/74 (93) 100 07/15/19 03:00 26 131/73 Mechanical Ventilator 30 07/15/19 03:00 131/73 07/15/19 02:45 80 25 115/76 (89) 100 07/15/19 02:30 82 24 112/73 (86) 100 07/15/19 02:15 85 27 108/71 (83) 100 07/15/19 02:00 88 23 113/71 (85) 100 07/15/19 02:00 24 113/71 Mechanical Ventilator 07/15/19 02:00 113/71 07/15/19 01:45 86 25 131/79 (96) 100 07/15/19 01:30 83 25 105/69 (81) 100 07/15/19 01:15 82 20 116/74 (88) 100 07/15/19 01:00 74 26 140/78 (98) 100 07/15/19 01:00 26 140/78 Mechanical Ventilator 30 07/15/19 01:00 140/78 07/15/19 00:30 77 26 115/77 (90) 100 07/15/19 00:00 86 07/15/19 00:00 26 118/73 Mechanical Ventilator 30 07/15/19 00:00 118/73 07/15/19 00:00 Mechanical Ventilator 07/15/19 00:00 30 07/15/19 00:00 98.3 86 26 134/84 (101) 100 07/14/19 23:30 78 25 114/69 (84) 100 07/14/19 23:30 78 26 100 Mechanical Ventilator 30 80 26 30 07/14/19 23:00 80 22 116/75 (89) 100 07/14/19 23:00 25 116/54 Mechanical Ventilator 30 07/14/19 23:00 116/75 07/14/19 22:30 78 24 114/69 (84) 100 07/14/19 22:00 24 120/78 Mechanical Ventilator 30 07/14/19 22:00 120/78 07/14/19 22:00 74 22 120/78 (92) 100 07/14/19 21:45 76 24 102/68 (79) 100 07/14/19 21:30 77 22 97/68 (78) 100 07/14/19 21:28 97.9 07/14/19 21:15 82 26 105/69 (81) 100 07/14/19 21:00 26 118/71 Mechanical Ventilator 30 07/14/19 21:00 118/71 07/14/19 21:00 84 22 118/71 (87) 100 07/14/19 20:45 85 10 94/62 (73) 100 07/14/19 20:30 81 21 113/72 (86) 100 07/14/19 20:00 98.6 83 24 128/73 (91) 100 07/14/19 20:00 30 07/14/19 20:00 89 07/14/19 20:00 26 128/73 Mechanical Ventilator 30 07/14/19 20:00 128/73 07/14/19 20:00 Mechanical Ventilator 07/14/19 19:30 82 26 100 Mechanical Ventilator 30 86 28 30 07/14/19 19:30 81 20 119/76 (90) 100 07/14/19 19:00 20 118/78 Mechanical Ventilator 30 07/14/19 19:00 118/78 07/14/19 19:00 78 26 112/69 (83) 100 07/14/19 18:00 26 115/69 Mechanical Ventilator 30 07/14/19 18:00 89/60 07/14/19 18:00 76 25 115/69 (84) 100 07/14/19 17:00 93 23 98/59 (72) 100 07/14/19 17:00 26 98/59 Mechanical Ventilator 30 07/14/19 16:30 94 26 98/71 (80) 100 07/14/19 16:00 97 07/14/19 16:00 Mechanical Ventilator 07/14/19 16:00 20 111/65 Mechanical Ventilator 30 07/14/19 16:00 30 07/14/19 16:00 97.9 81 9 111/65 (80) 100 6/3/20 15:30 80 17 112/75 (87) 100 07/14/19 15:25 88 26 100 Mechanical Ventilator 30 88 26 30 07/14/19 15:00 17 123/79 Mechanical Ventilator 30 07/14/19 15:00 86 5 123/79 (94) 100 07/14/19 14:30 93 22 143/87 (105) 100 07/14/19 14:00 98 20 125/86 (99) 100 07/14/19 14:00 20 125/86 Mechanical Ventilator 30 07/14/19 14:00 125/86 07/14/19 13:10 98/60 07/14/19 13:00 20 144/86 Mechanical Ventilator 30 07/14/19 13:00 97 20 150/80 (103) 100 07/14/19 12:30 85 21 154/89 (110) 100 07/14/19 12:00 80 07/14/19 12:00 25 137/75 Mechanical Ventilator 30 07/14/19 12:00 30 07/14/19 12:00 98.6 82 23 137/75 (95) 100 07/14/19 12:00 Mechanical Ventilator 07/14/19 11:30 79 25 124/74 (91) 98 07/14/19 11:30 81 26 100 Mechanical Ventilator 30 79 26 30 07/14/19 11:00 90 19 109/73 (85) 100 07/14/19 11:00 22 109/73 Mechanical Ventilator 30 07/14/19 10:30 90 20 146/85 (105) 100 Height (Feet): 6 Height (Inches): 1.00 Weight (Pounds): 180 HEENT: status post trach Respiratory/Chest: other - on ventilator Cardiovascular: tachycardia, other - left IJ HD line, on HD Abdomen: soft, non tender, other - GT in place Extremities: no edema Neurologic/Psychiatric: disoriented Laboratory Tests Test 07/15/19 04:11 White Blood Count 12.4 K/UL (4.8-10.8) H Red Blood Count 3.47 M/UL (4.70-6.10) L Hemoglobin 10.0 G/DL (14.2-18.0) L Hematocrit 31.2 % (42.0-52.0) L Mean Corpuscular Volume 90 FL (80-99) Mean Corpuscular Hemoglobin 28.9 PG (27.0-31.0) Mean Corpuscular Hemoglobin Concent 32.1 G/DL (32.0-36.0) Red Cell Distribution Width 15.5 % (11.6-14.8) H Platelet Count 358 K/UL (150-450) Mean Platelet Volume 6.5 FL (6.5-10.1) Neutrophils (%) (Auto) 78.8 % (45.0-75.0) H Lymphocytes (%) (Auto) 9.7 % (20.0-45.0) L Monocytes (%) (Auto) 6.7 % (1.0-10.0) Eosinophils (%) (Auto) 3.8 % (0.0-3.0) H Basophils (%) (Auto) 0.9 % (0.0-2.0) Sodium Level 136 MMOL/L (136-145) Potassium Level 4.5 MMOL/L (3.5-5.1) Chloride Level 92 MMOL/L (98-107) L Carbon Dioxide Level 23 MMOL/L (21-32) Anion Gap 21 mmol/L (5-15) H Blood Urea Nitrogen 85 mg/dL (7-18) H Creatinine 10.9 MG/DL (0.55-1.30) H Estimat Glomerular Filtration Rate 4.7 mL/min (>60) Glucose Level 168 MG/DL (74-106) H Uric Acid 9.3 MG/DL (2.6-7.2) H Calcium Level 9.5 MG/DL (8.5-10.1) Phosphorus Level 7.0 MG/DL (2.5-4.9) H Magnesium Level 2.7 MG/DL (1.8-2.4) H Total Bilirubin 0.5 MG/DL (0.2-1.0) Aspartate Amino Transf (AST/SGOT) 22 U/L (15-37) Alanine Aminotransferase (ALT/SGPT) 13 U/L (12-78) Alkaline Phosphatase 107 U/L (46-116) Troponin I 0.005 ng/mL (0.000-0.056) C-Reactive Protein, Quantitative 8.2 mg/dL (0.00-0.90) H Pro-B-Type Natriuretic Peptide 55147 pg/mL (0-125) H Total Protein 9.5 G/DL (6.4-8.2) H Albumin 2.9 G/DL (3.4-5.0) L Globulin 6.6 g/dL Albumin/Globulin Ratio 0.4 (1.0-2.7) L Current Medications Medications (Trade) Dose Ordered Sig/Anthony Route PRN Reason Start Time Stop Time Status Last Admin Dose Admin Acetaminophen (Tylenol) 650 mg Q4H PRN NG For Pain 07/11/19 08:00 08/10/19 07:59 07/13/19 22:31 Albuterol Sulfate (Proventil MDI) 2 puff Q4HRT INH 06/06/19 23:00 08/30/19 18:59 07/15/19 07:53 Chlorhexidine Gluconate (Michelle-Hex 2%) 1 applic DAILY@2000 TOPIC 06/07/19 20:00 09/05/19 19:59 07/14/19 20:26 Dextrose (Dextrose 50%) 25 ml Q30M PRN IV Hypoglycemia 06/20/19 19:30 09/18/19 19:29 Dextrose (Dextrose 50%) 50 ml Q30M PRN IV Hypoglycemia 06/20/19 19:30 09/18/19 19:29 Dopamine HCl/ Dextrose 250 ml @ 0 mls/hr Q24H PRN IV For hypotension 06/13/19 08:15 09/11/19 08:14 Enoxaparin Sodium (Lovenox) 30 mg DAILY SUBQ 06/07/19 09:00 08/27/19 08:59 07/15/19 08:17 Epoetin Aftab (Epoetin Aftab(ESRD on dialysis)) 10,000 unit FRI-FRI-FRI SUBQ 06/07/19 21:00 08/31/19 20:59 07/14/19 20:43 Fentanyl Citrate 250 ml @ 0 mls/hr Q24H IV 06/24/19 06:00 09/22/19 05:59 07/13/19 10:00 Haloperidol Lactate 5 mg/ Dextrose 56 ml @ 224 mls/hr Q6H PRN IVPB Agitation 07/11/19 15:00 08/25/19 14:59 07/15/19 02:36 Hydralazine HCl (Apresoline) 10 mg Q4H PRN IV Blood pressure over 160 systol 06/07/19 10:15 09/05/19 10:14 Hydromorphone HCl (Dilaudid) 0.5 mg Q3H PRN IVP For Pain 07/11/19 15:00 07/18/19 14:59 07/14/19 20:26 Insulin Aspart (NovoLOG) EVERY 6 HOURS SUBQ 06/21/19 00:00 09/19/19 00:00 07/14/19 23:29 Lorazepam (Ativan 2mg/ml 1ml) 0.5 mg Q4H PRN IV For Anxiety 07/11/19 15:00 07/18/19 14:59 07/14/19 08:36 Metoclopramide HCl (Reglan) 5 mg Q8H PRN IVP Nausea & Vomiting 06/18/19 12:00 07/18/19 11:59 06/19/19 00:50 Midodrine (Pro-Amatine) 10 mg THREE TIMES A DAY NG 06/09/19 13:00 09/07/19 12:59 07/15/19 08:16 Norepinephrine Bitartrate 8 mg/ Dextrose 283 ml @ 0 mls/hr Q24H IV 06/23/19 23:00 07/23/19 22:59 07/14/19 13:10 Pantoprazole (Protonix) 40 mg DAILY IVP 06/19/19 09:00 07/19/19 08:59 07/15/19 08:16 Sevelamer Carbonate (Renvela) 2,400 mg Q6HR NG 07/14/19 12:00 10/12/19 13:59 07/15/19 05:51 Ted Leyva MD Jul 15, 2019 10:07
--- NOTE | 2019-07-15 10:27 | General Progress Note ---
Assessment/Plan Status: progressing, unchanged Assessment/Plan: 1. Diabetes. 2. Hypertension. 3. Coronary artery disease. 4. COPD. 5. Psychiatric disorder with schizophrenia. 6. History of hepatitis C. 7. HLP. 8. Chronic kidney disease, now with acute renal failure. 9. Anemia. 10. Hypothyroidism. 11. Spinal stenosis. 12. Constipation. 13. GERD. 14. COVID positive HD per nephrology fu labs icu care s/p PEG GTF monitor for residuals Subjective ROS Limited/Unobtainable: No Allergies: Coded Allergies: No Known Allergies (Unverified , 05/28/19) Objective Last 24 Hour Vital Signs Date Time Temp Pulse Resp B/P (MAP) Pulse Ox O2 Delivery O2 Flow Rate FiO2 07/15/19 10:00 118 33 119/76 (90) 100 07/15/19 09:00 110 34 149/91 (110) 100 07/15/19 08:00 30 07/15/19 08:00 98.6 104 33 114/72 (86) 100 07/15/19 07:47 102 30 100 Mechanical Ventilator 30 102 32 30 30 07/15/19 07:46 100 07/15/19 07:00 26 103/65 Mechanical Ventilator 30 07/15/19 07:00 103/65 07/15/19 07:00 100 23 102/65 (77) 100 07/15/19 06:00 93 26 102/69 (80) 100 07/15/19 06:00 26 102/64 Mechanical Ventilator 30 07/15/19 06:00 26 102/64 Mechanical Ventilator 30 07/15/19 06:00 102/64 07/15/19 05:45 101 26 92/56 (68) 100 07/15/19 05:30 96 26 110/69 (83) 100 07/15/19 05:00 98 24 90/53 (65) 100 07/15/19 05:00 27 90/53 Mechanical Ventilator 30 07/15/19 05:00 90/53 07/15/19 04:45 101 24 112/65 (81) 100 07/15/19 04:30 105 24 90/61 (71) 100 07/15/19 04:15 104 26 73/55 (61) 100 07/15/19 04:00 Mechanical Ventilator 07/15/19 04:00 30 07/15/19 04:00 92 07/15/19 04:00 26 73/55 Mechanical Ventilator 30 07/15/19 04:00 76/56 07/15/19 04:00 98.5 106 23 76/52 (60) 100 07/15/19 03:30 106 31 100 Mechanical Ventilator 30 107 32 30 07/15/19 03:30 106 26 112/64 (80) 100 07/15/19 03:00 92 22 131/74 (93) 100 07/15/19 03:00 26 131/73 Mechanical Ventilator 30 07/15/19 03:00 131/73 07/15/19 02:45 80 25 115/76 (89) 100 07/15/19 02:30 82 24 112/73 (86) 100 07/15/19 02:15 85 27 108/71 (83) 100 07/15/19 02:00 88 23 113/71 (85) 100 07/15/19 02:00 24 113/71 Mechanical Ventilator 30 07/15/19 02:00 113/71 07/15/19 01:45 86 25 131/79 (96) 100 07/15/19 01:30 83 25 105/69 (81) 100 07/15/19 01:15 82 20 116/74 (88) 100 07/15/19 01:00 74 26 140/78 (98) 100 07/15/19 01:00 26 140/78 Mechanical Ventilator 30 07/15/19 01:00 140/78 07/15/19 00:30 77 26 115/77 (90) 100 07/15/19 00:00 86 07/15/19 00:00 26 118/73 Mechanical Ventilator 07/15/19 00:00 118/73 07/15/19 00:00 Mechanical Ventilator 07/15/19 00:00 30 07/15/19 00:00 98.3 86 26 134/84 (101) 100 07/14/19 23:30 78 25 114/69 (84) 100 07/14/19 23:30 78 26 100 Mechanical Ventilator 30 80 26 30 07/14/19 23:00 80 22 116/75 (89) 100 07/14/19 23:00 25 116/54 Mechanical Ventilator 30 07/14/19 23:00 116/75 07/14/19 22:30 78 24 114/69 (84) 100 07/14/19 22:00 24 120/78 Mechanical Ventilator 30 07/14/19 22:00 120/78 07/14/19 22:00 74 22 120/78 (92) 100 07/14/19 21:45 76 24 102/68 (79) 100 07/14/19 21:30 77 22 97/68 (78) 100 07/14/19 21:28 97.9 07/14/19 21:15 82 26 105/69 (81) 100 07/14/19 21:00 26 118/71 Mechanical Ventilator 30 07/14/19 21:00 118/71 07/14/19 21:00 84 22 118/71 (87) 100 07/14/19 20:45 85 10 94/62 (73) 100 07/14/19 20:30 81 21 113/72 (86) 100 07/14/19 20:00 98.6 83 24 128/73 (91) 100 07/14/19 20:00 30 07/14/19 20:00 89 07/14/19 20:00 26 128/73 Mechanical Ventilator 30 07/14/19 20:00 128/73 07/14/19 20:00 Mechanical Ventilator 07/14/19 19:30 82 26 100 Mechanical Ventilator 30 86 28 30 07/14/19 19:30 81 20 119/76 (90) 100 07/14/19 19:00 20 118/78 Mechanical Ventilator 30 07/14/19 19:00 118/78 07/14/19 19:00 78 26 112/69 (83) 100 07/14/19 18:00 26 115/69 Mechanical Ventilator 30 07/14/19 18:00 89/60 07/14/19 18:00 76 25 115/69 (84) 100 07/14/19 17:00 93 23 98/59 (72) 100 07/14/19 17:00 26 98/59 Mechanical Ventilator 30 07/14/19 16:30 94 26 98/71 (80) 100 07/14/19 16:00 97 07/14/19 16:00 Mechanical Ventilator 07/14/19 16:00 20 111/65 Mechanical Ventilator 30 07/14/19 16:00 30 07/14/19 16:00 97.9 81 9 111/65 (80) 100 07/14/19 15:30 80 17 112/75 (87) 100 07/14/19 15:25 88 26 100 Mechanical Ventilator 30 88 26 30 07/14/19 15:00 17 123/79 Mechanical Ventilator 30 07/14/19 15:00 86 5 123/79 (94) 100 07/14/19 14:30 93 22 143/87 (105) 100 07/14/19 14:00 98 20 125/86 (99) 100 07/14/19 14:00 20 125/86 Mechanical Ventilator 30 07/14/19 14:00 125/86 07/14/19 13:10 98/60 07/14/19 13:00 20 144/86 Mechanical Ventilator 30 07/14/19 13:00 97 20 150/80 (103) 100 07/14/19 12:30 85 21 154/89 (110) 100 07/14/19 12:00 80 07/14/19 12:00 25 137/75 Mechanical Ventilator 30 07/14/19 12:00 30 07/14/19 12:00 98.6 82 23 137/75 (95) 100 07/14/19 12:00 Mechanical Ventilator 07/14/19 11:30 79 25 124/74 (91) 98 07/14/19 11:30 81 26 100 Mechanical Ventilator 30 79 26 30 07/14/19 11:00 90 19 109/73 (85) 100 07/14/19 11:00 22 109/73 Mechanical Ventilator 30 07/14/19 10:30 90 20 146/85 (105) 100 Intake and Output 07/14/19 07/15/19 19:00 07:00 Intake Total 678.84 ml 1178.685 ml Output Total 0 ml 0 ml Balance 678.84 ml 1178.685 ml Free Water 60 ml 520 ml IV Total 498.84 ml 128.685 ml Tube Feeding 120 ml 210 ml Other 320 ml Output Urine Total 0 ml 0 ml Stool Total 0 ml # Bowel Movements 1 Laboratory Tests 07/15/19 04:11: White Blood Count 12.4H, Red Blood Count 3.47L, Hemoglobin 10.0L, Hematocrit 31.2L, Mean Corpuscular Volume 90, Mean Corpuscular Hemoglobin 28.9, Mean Corpuscular Hemoglobin Concent 32.1, Red Cell Distribution Width 15.5H, Platelet Count 358, Mean Platelet Volume 6.5, Neutrophils (%) (Auto) 78.8H, Lymphocytes (%) (Auto) 9.7L, Monocytes (%) (Auto) 6.7, Eosinophils (%) (Auto) 3.8H, Basophils (%) (Auto) 0.9, Sodium Level 136, Potassium Level 4.5, Chloride Level 92L, Carbon Dioxide Level 23, Anion Gap 21H, Blood Urea Nitrogen 85H, Creatinine 10.9H, Estimat Glomerular Filtration Rate 4.7, Glucose Level 168H, Uric Acid 9.3H, Calcium Level 9.5, Phosphorus Level 7.0H, Magnesium Level 2.7H, Total Bilirubin 0.5, Aspartate Amino Transf (AST/SGOT) 22, Alanine Aminotransferase (ALT/SGPT) 13, Alkaline Phosphatase 107, Troponin I 0.005, C- Reactive Protein, Quantitative 8.2H, Pro-B-Type Natriuretic Peptide 97320W, Total Protein 9.5H, Albumin 2.9L, Globulin 6.6, Albumin/Globulin Ratio 0.4L Height (Feet): 6 Height (Inches): 1.00 Weight (Pounds): 180 General Appearance: no apparent distress EENT: normal ENT inspection Neck: supple Cardiovascular: normal rate Respiratory/Chest: decreased breath sounds Abdomen: normal bowel sounds, non tender, soft Extremities: non-tender Marito Ramires MD Jul 15, 2019 10:27
--- NOTE | 2019-07-15 13:51 | General Progress Note ---
Assessment/Plan Problem List: (1) HTN (hypertension) ICD Codes: I10 - Essential (primary) hypertension SNOMED: 84706126 (2) CASSANDRA (acute kidney injury) ICD Codes: N17.9 - Acute kidney failure, unspecified SNOMED: 8123522, 88750594 (3) Anemia in chronic kidney disease (CKD) ICD Codes: N18.9 - Chronic kidney disease, unspecified; D63.1 - Anemia in chronic kidney disease SNOMED: 018648770 (4) Renal failure ICD Codes: N19 - Unspecified kidney failure SNOMED: 52766123 (5) Respiratory failure requiring intubation ICD Codes: J96.90 - Respiratory failure, unspecified, unspecified whether with hypoxia or hypercapnia; A41.89 - Other specified sepsis SNOMED: 931712995, 168196746 (6) Pneumonia due to COVID-19 virus ICD Codes: U07.1 - COVID-19; J12.89 - Other viral pneumonia SNOMED: 022163079, 345008572 (7) Sepsis due to severe acute respiratory syndrome coronavirus 2 (SARS-CoV-2) ICD Codes: U07.1 - COVID-19; A41.89 - Other specified sepsis SNOMED: 391200996, 971855171 Status: progressing, unchanged Assessment/Plan: leukocytosis peg gi s/p trach no acute events moniter requires high level of care prn pressor still getting diaylsis s/p covid pna continue supportive rx Subjective ROS Limited/Unobtainable: Yes Allergies: Coded Allergies: No Known Allergies (Unverified , 05/28/19) Objective Last 24 Hour Vital Signs Date Time Temp Pulse Resp B/P (MAP) Pulse Ox O2 Delivery O2 Flow Rate FiO2 07/15/19 13:00 115 11 149/94 (112) 100 07/15/19 12:00 Mechanical Ventilator 07/15/19 12:00 119 07/15/19 12:00 30 07/15/19 12:00 99.6 115 33 116/78 (91) 100 07/15/19 11:08 119 35 100 Mechanical Ventilator 30 120 35 30 07/15/19 11:00 124 33 108/85 (93) 100 07/15/19 10:00 118 33 119/76 (90) 100 07/15/19 09:00 110 34 149/91 (110) 100 07/15/19 08:00 30 07/15/19 08:00 Mechanical Ventilator 07/15/19 08:00 106 07/15/19 08:00 98.6 104 33 114/72 (86) 100 07/15/19 08:00 30 07/15/19 07:47 102 30 100 Mechanical Ventilator 30 102 32 30 30 07/15/19 07:46 100 07/15/19 07:00 26 103/65 Mechanical Ventilator 30 07/15/19 07:00 103/65 07/15/19 07:00 100 23 102/65 (77) 100 07/15/19 06:00 93 26 102/69 (80) 100 07/15/19 06:00 26 102/64 Mechanical Ventilator 30 07/15/19 06:00 26 102/64 Mechanical Ventilator 30 07/15/19 06:00 102/64 07/15/19 05:45 101 26 92/56 (68) 100 07/15/19 05:30 96 26 110/69 (83) 100 07/15/19 05:00 98 24 90/53 (65) 100 07/15/19 05:00 27 90/53 Mechanical Ventilator 30 07/15/19 05:00 90/53 07/15/19 04:45 101 24 112/65 (81) 100 07/15/19 04:30 105 24 90/61 (71) 100 07/15/19 04:15 104 26 73/55 (61) 100 07/15/19 04:00 Mechanical Ventilator 07/15/19 04:00 30 07/15/19 04:00 92 07/15/19 04:00 26 73/55 Mechanical Ventilator 30 07/15/19 04:00 76/56 07/15/19 04:00 98.5 106 23 76/52 (60) 100 07/15/19 03:30 106 31 100 Mechanical Ventilator 30 107 32 30 07/15/19 03:30 106 26 112/64 (80) 100 07/15/19 03:00 92 22 131/74 (93) 100 07/15/19 03:00 26 131/73 Mechanical Ventilator 30 07/15/19 03:00 131/73 07/15/19 02:45 80 25 115/76 (89) 100 07/15/19 02:30 82 24 112/73 (86) 100 07/15/19 02:15 85 27 108/71 (83) 100 07/15/19 02:00 88 23 113/71 (85) 100 07/15/19 02:00 24 113/71 Mechanical Ventilator 30 07/15/19 02:00 113/71 07/15/19 01:45 86 25 131/79 (96) 100 07/15/19 01:30 83 25 105/69 (81) 100 07/15/19 01:15 82 20 116/74 (88) 100 07/15/19 01:00 74 26 140/78 (98) 100 07/15/19 01:00 26 140/78 Mechanical Ventilator 30 07/15/19 01:00 140/78 07/15/19 00:30 77 26 115/77 (90) 100 07/15/19 00:00 86 07/15/19 00:00 26 118/73 Mechanical Ventilator 30 07/15/19 00:00 118/73 07/15/19 00:00 Mechanical Ventilator 07/15/19 00:00 30 07/15/19 00:00 98.3 86 26 134/84 (101) 100 07/14/19 23:30 78 25 114/69 (84) 100 07/14/19 23:30 78 26 100 Mechanical Ventilator 30 80 26 30 07/14/19 23:00 80 22 116/75 (89) 100 07/14/19 23:00 25 116/54 Mechanical Ventilator 30 07/14/19 23:00 116/75 07/14/19 22:30 78 24 114/69 (84) 100 07/14/19 22:00 24 120/78 Mechanical Ventilator 30 07/14/19 22:00 120/78 07/14/19 22:00 74 22 120/78 (92) 100 07/14/19 21:45 76 24 102/68 (79) 100 07/14/19 21:30 77 22 97/68 (78) 100 07/14/19 21:28 97.9 07/14/19 21:15 82 26 105/69 (81) 100 07/14/19 21:00 26 118/71 Mechanical Ventilator 30 07/14/19 21:00 118/71 07/14/19 21:00 84 22 118/71 (87) 100 07/14/19 20:45 85 10 94/62 (73) 100 07/14/19 20:30 81 21 113/72 (86) 100 07/14/19 20:00 98.6 83 24 128/73 (91) 100 07/14/19 20:00 30 07/14/19 20:00 89 07/14/19 20:00 26 128/73 Mechanical Ventilator 30 07/14/19 20:00 128/73 07/14/19 20:00 Mechanical Ventilator 07/14/19 19:30 82 26 100 Mechanical Ventilator 30 86 28 30 07/14/19 19:30 81 20 119/76 (90) 100 07/14/19 19:00 20 118/78 Mechanical Ventilator 30 07/14/19 19:00 118/78 07/14/19 19:00 78 26 112/69 (83) 100 07/14/19 18:00 26 115/69 Mechanical Ventilator 30 07/14/19 18:00 89/60 07/14/19 18:00 76 25 115/69 (84) 100 07/14/19 17:00 93 23 98/59 (72) 100 07/14/19 17:00 26 98/59 Mechanical Ventilator 30 07/14/19 16:30 94 26 98/71 (80) 100 07/14/19 16:00 97 07/14/19 16:00 Mechanical Ventilator 07/14/19 16:00 20 111/65 Mechanical Ventilator 30 07/14/19 16:00 30 07/14/19 16:00 97.9 81 9 111/65 (80) 100 07/14/19 15:30 80 17 112/75 (87) 100 07/14/19 15:25 88 26 100 Mechanical Ventilator 30 88 26 30 07/14/19 15:00 17 123/79 Mechanical Ventilator 30 07/14/19 15:00 86 5 123/79 (94) 100 07/14/19 14:30 93 22 143/87 (105) 100 07/14/19 14:00 98 20 125/86 (99) 100 07/14/19 14:00 20 125/86 Mechanical Ventilator 30 07/14/19 14:00 125/86 Intake and Output 07/14/19 07/15/19 19:00 07:00 Intake Total 678.84 ml 1178.685 ml Output Total 0 ml 0 ml Balance 678.84 ml 1178.685 ml Free Water 60 ml 520 ml IV Total 498.84 ml 128.685 ml Tube Feeding 120 ml 210 ml Other 320 ml Output Urine Total 0 ml 0 ml Stool Total 0 ml # Bowel Movements 1 Laboratory Tests 07/15/19 04:11: White Blood Count 12.4H, Red Blood Count 3.47L, Hemoglobin 10.0L, Hematocrit 31.2L, Mean Corpuscular Volume 90, Mean Corpuscular Hemoglobin 28.9, Mean Corpuscular Hemoglobin Concent 32.1, Red Cell Distribution Width 15.5H, Platelet Count 358, Mean Platelet Volume 6.5, Neutrophils (%) (Auto) 78.8H, Lymphocytes (%) (Auto) 9.7L, Monocytes (%) (Auto) 6.7, Eosinophils (%) (Auto) 3.8H, Basophils (%) (Auto) 0.9, Sodium Level 136, Potassium Level 4.5, Chloride Level 92L, Carbon Dioxide Level 23, Anion Gap 21H, Blood Urea Nitrogen 85H, Creatinine 10.9H, Estimat Glomerular Filtration Rate 4.7, Glucose Level 168H, Uric Acid 9.3H, Calcium Level 9.5, Phosphorus Level 7.0H, Magnesium Level 2.7H, Total Bilirubin 0.5, Aspartate Amino Transf (AST/SGOT) 22, Alanine Aminotransferase (ALT/SGPT) 13, Alkaline Phosphatase 107, Troponin I 0.005, C- Reactive Protein, Quantitative 8.2H, Pro-B-Type Natriuretic Peptide [id number], Total Protein 9.5H, Albumin 2.9L, Globulin 6.6, Albumin/Globulin Ratio 0.4L Height (Feet): 6 Height (Inches): 1.00 Weight (Pounds): 180 Karishma Mulligan MD Jul 15, 2019 13:51
[2019-07-15] MEDS ORDERED: D5W 275ml ONE (14:23)
[2019-07-15] MEDS ORDERED: Sterile Water Irrig 1000ml IRRIG ONE (14:24)
[2019-07-15] MEDS ORDERED: Tubing IV Secondary IV ONE (14:24)
[2019-07-15] MEDS ORDERED: NS 275ml ONE (14:24)
--- NOTE | 2019-07-15 15:08 | Hematology/Onc Progress Note ---
Assessment/Plan Assessment/Plan Assessment and Recs: # Anemia of chronic disease, likely related ot underlying kidney disease has COIVD19++++++ --> hgb trend 9-->8-->7.3-->7.9-->6.8->9.5-->10->8.3-->7.7-->7.1-->8.9->8.8->7.7 -->8.1 ->7.9-->7.7 -->8.2-->8.1 -->7.9-->8.5 -->9->9.2-->9.5-->10.7 -->9.8 --> transfuse as needed, hgb goal >7 --> no evidence of hemolysis --> peripheral smear has been reviewed --> epogen started 3 x a week ==>> transfuse 06/08, 06/15, # Leukocytosis likely related to suspected COVID-19 virus infection --> completed plaquenil --> trend smear as needed --> wbc trend: 4-->11-->14.5-->21-->26-->21->24--.28-->23-->19-->16.2-->21--> 11.2 -->12.5-->12.3-->12.4-->18.5-->18.5-->17 --> pulm is aware --> on abx cefepime/vanc->zosyn/vanc-->dom/vanc-->dom --> pressors as needed --> 06/27 covid 19++ # Thrombocytopenia/Lymphopenia --> likely related to covid19 --> plt 129k-->186k-->251-->285-->384 -->430-->539-->515-->447-->451 --> abx: dom/vanc # Respiratory failure with covid19+ --> s/p vent/trach --> weaning # Possible Pneumonia --> abx completed --> 07/13 cxr: Improved right lung infiltrates. # Cardiomegaly # Transaminitis with Elevated AST # COPD # Chronic Kidney Disease --> per renal hd --> s/p right femoral cath 07/02 # Hypertension # Dvt ppx lovenox # peg Appreciate consultation and ernesto Rn Subjective HEENT: Denies: no symptoms, eye pain, blurred vision, tearing, double vision, ear pain, ear discharge, nose pain, nose congestion, throat pain, throat swelling, mouth pain, mouth swelling, other Cardiovascular: Denies: no symptoms, chest pain, edema, irregular heart rate, lightheadedness, palpitations, syncope, other Respiratory: Denies: no symptoms, cough, shortness of breath, SOB with excertion, SOB at rest, sputum, wheezing, other Genitourinary: Denies: no symptoms, burning, discharge, frequency, flank pain, hematuria, incontinence, pain, urgency, other Endocrine: Denies: no symptoms, excessive sweating, flushing, intolerance to cold, intolerance to heat, increased hunger, increased thirst, increased urine, unexplained weight gain, unexplained weight loss, other Hematologic/Lymphatic: Denies: no symptoms, anemia, easy bleeding, easy bruising, adenopathy, other Allergies: Coded Allergies: No Known Allergies (Unverified , 05/28/19) Subjective 06/01 nv, extremely agitated, not allowing labs draws, no night sweats, cbc ordered 06/02 confused, restraints, on abx and plaquenil, hgb 7.9, nrb 15 L 06/03 is with nonrebreather, but not compliant, remains confused 06/05 no bleeding, labs noted, no major bleeding, otherwise comfortable 06/06 labs reviewed, no bleeding, meds noted, no night sweats, on levo and nonrebreather 06/07 labs noted, no bleeding, meds reviewed, no bleeding, wbc higher 06/08 to get 2 units prbc, no night sweats, meds reviewed 06/09 is on cefepime and vanc, labs noted, ernesto Rn, no bleeding 06/10 no major changes, labs reviewed, wbc 28k, on abx, cefepime 06/12 remains in icu, labs noted, no night sweats or bleeding 06/13 sluggish pupils, remains agitated, per psych, no bleding, on vent, wbc sitll high 06/14 still confused, remains on vent, with ng, running nepro, on pressors 06/15 icu, febrile, non verbal, hgb 7.1, blood pending, completed plaq 06/16 remains in the icu, nonverbal, plan for hd tomorrow, ernesto rn 06/17 in icu, on pressor, nonverbal, on abx, no bleeding 06/19 no bleeding, nonverbal in icu, hgb is 7.7 06/20 on zosyn, tube feeds, vent, labs noted, in icu, nv 06/21 gettng hd as per renal, in icu, nv, no bleeding, tfs 06/22 icu, cxr with slight improvement, cooling blanket, weaning today 06/23 wewaning, in icu, on vent, abx, and pressors as needed, labs noted 06/24 failed weaning, off abx, completed plaquenil, hgb 8.1 06/26 icu, weaning for this am, afebrile, hgb 8 06/27 in icu, remains comotose, weaning started on peep, no night sweats 06/28 weaning today, off abx, restraints, no distress, h/h stable 06/29 covid 19+, failed weaning, no blood transfusion needed 06/30 icu, on vent, labs reviewed, no distress 07/01 in icu, may need trach, remains on hd per renal, labs noted 07/02 s/p right fem cath, failed wean, no new orders, h/h stable 07/03 is somewhat more responsive, on abx, no bleeding, weaning and HD today 07/04 hd as per renal, weaning off vent, no bleeding today 07/05 obtunded, no bleding overnight, with hd for tomorrow noted, vanc 07/08 no events, remains with trach/vent, ernesto Rn, no bleeding, cbc is noted 07/09 no overnight events, peg for friday pending consent 07/10 off pressors, vent, restraints, labs reviewed 07/11 no acute events is on pressors, intubated, agitated still 07/12 is resting comfortably, no bleeding, emds reviewed and noted 07/13 icu, no events, trach, cxr reviewed, 07/14 is onv ent, tachypneic and tachycardic, labs noted Objective Objective Current Medications Medications (Trade) Dose Ordered Sig/Anthony Route PRN Reason Start Time Stop Time Status Last Admin Dose Admin Acetaminophen (Tylenol) 650 mg Q4H PRN NG For Pain 07/11/19 08:00 08/10/19 07:59 07/13/19 22:31 Albuterol Sulfate (Proventil MDI) 2 puff Q4HRT INH 06/06/19 23:00 08/30/19 18:59 07/15/19 14:46 Chlorhexidine Gluconate (Michelle-Hex 2%) 1 applic DAILY@2000 TOPIC 06/07/19 20:00 09/05/19 19:59 07/14/19 20:26 Dextrose (Dextrose 50%) 25 ml Q30M PRN IV Hypoglycemia 06/20/19 19:30 09/18/19 19:29 Dextrose (Dextrose 50%) 50 ml Q30M PRN IV Hypoglycemia 06/20/19 19:30 09/18/19 19:29 Dopamine HCl/ Dextrose 250 ml @ 0 mls/hr Q24H PRN IV For hypotension 06/13/19 08:15 09/11/19 08:14 Enoxaparin Sodium (Lovenox) 30 mg DAILY SUBQ 06/07/19 09:00 08/27/19 08:59 07/15/19 08:17 Epoetin Aftab (Epoetin Aftab(ESRD on dialysis)) 10,000 unit FRI-FRI-FRI SUBQ 06/07/19 21:00 08/31/19 20:59 07/14/19 20:43 Haloperidol Lactate 5 mg/ Dextrose 56 ml @ 224 mls/hr Q6H PRN IVPB Agitation 07/11/19 15:00 08/25/19 14:59 07/15/19 02:36 Hydralazine HCl (Apresoline) 10 mg Q4H PRN IV Blood pressure over 160 systol 06/07/19 10:15 09/05/19 10:14 Hydromorphone HCl (Dilaudid) 0.5 mg Q3H PRN IVP For Pain 07/11/19 15:00 07/18/19 14:59 07/14/19 20:26 Insulin Aspart (NovoLOG) EVERY 6 HOURS SUBQ 06/21/19 00:00 09/19/19 00:00 07/15/19 12:34 Lorazepam (Ativan 2mg/ml 1ml) 0.5 mg Q4H PRN IV For Anxiety 07/11/19 15:00 07/18/19 14:59 07/14/19 08:36 Metoclopramide HCl (Reglan) 5 mg Q8H PRN IVP Nausea & Vomiting 06/18/19 12:00 07/18/19 11:59 06/19/19 00:50 Midodrine (Pro-Amatine) 10 mg THREE TIMES A DAY NG 06/09/19 13:00 09/07/19 12:59 07/15/19 12:23 Norepinephrine Bitartrate 8 mg/ Dextrose 283 ml @ 0 mls/hr Q24H IV 06/23/19 23:00 07/23/19 22:59 07/14/19 13:10 Pantoprazole (Protonix) 40 mg DAILY IVP 06/19/19 09:00 07/19/19 08:59 07/15/19 08:16 Sevelamer Carbonate (Renvela) 2,400 mg Q6HR NG 07/14/19 12:00 10/12/19 13:59 07/15/19 12:22 Last 24 Hour Vital Signs Date Time Temp Pulse Resp B/P (MAP) Pulse Ox O2 Delivery O2 Flow Rate FiO2 07/15/19 14:50 127 30 100 Mechanical Ventilator 30 128 35 30 07/15/19 14:50 30 07/15/19 14:00 119 28 149/96 (113) 100 07/15/19 13:00 115 11 149/94 (112) 100 07/15/19 12:00 Mechanical Ventilator 07/15/19 12:00 119 07/15/19 12:00 30 07/15/19 12:00 99.6 115 33 116/78 (91) 100 07/15/19 11:08 119 35 100 Mechanical Ventilator 30 120 35 30 07/15/19 11:00 124 33 108/85 (93) 100 07/15/19 10:00 118 33 119/76 (90) 100 07/15/19 09:00 110 34 149/91 (110) 100 07/15/19 08:00 30 07/15/19 08:00 Mechanical Ventilator 07/15/19 08:00 106 07/15/19 08:00 98.6 104 33 114/72 (86) 100 07/15/19 08:00 30 07/15/19 07:47 102 30 100 Mechanical Ventilator 30 102 32 30 30 07/15/19 07:46 100 07/15/19 07:00 26 103/65 Mechanical Ventilator 30 07/15/19 07:00 103/65 07/15/19 07:00 100 23 102/65 (77) 100 07/15/19 06:00 93 26 102/69 (80) 100 07/15/19 06:00 26 102/64 Mechanical Ventilator 30 07/15/19 06:00 26 102/64 Mechanical Ventilator 30 07/15/19 06:00 102/64 07/15/19 05:45 101 26 92/56 (68) 100 07/15/19 05:30 96 26 110/69 (83) 100 07/15/19 05:00 98 24 90/53 (65) 100 07/15/19 05:00 27 90/53 Mechanical Ventilator 30 07/15/19 05:00 90/53 07/15/19 04:45 101 24 112/65 (81) 100 07/15/19 04:30 105 24 90/61 (71) 100 07/15/19 04:15 104 26 73/55 (61) 100 07/15/19 04:00 Mechanical Ventilator 07/15/19 04:00 30 07/15/19 04:00 92 07/15/19 04:00 26 73/55 Mechanical Ventilator 30 07/15/19 04:00 76/56 07/15/19 04:00 98.5 106 23 76/52 (60) 100 07/15/19 03:30 106 31 100 Mechanical Ventilator 30 107 32 30 07/15/19 03:30 106 26 112/64 (80) 100 07/15/19 03:00 92 22 131/74 (93) 100 07/15/19 03:00 26 131/73 Mechanical Ventilator 30 07/15/19 03:00 131/73 07/15/19 02:45 80 25 115/76 (89) 100 07/15/19 02:30 82 24 112/73 (86) 100 07/15/19 02:15 85 27 108/71 (83) 100 07/15/19 02:00 88 23 113/71 (85) 100 07/15/19 02:00 24 113/71 Mechanical Ventilator 30 07/15/19 02:00 113/71 07/15/19 01:45 86 25 131/79 (96) 100 07/15/19 01:30 83 25 105/69 (81) 100 07/15/19 01:15 82 20 116/74 (88) 100 07/15/19 01:00 74 26 140/78 (98) 100 07/15/19 01:00 26 140/78 Mechanical Ventilator 30 07/15/19 01:00 140/78 07/15/19 00:30 77 26 115/77 (90) 100 07/15/19 00:00 86 07/15/19 00:00 26 118/73 Mechanical Ventilator 30 07/15/19 00:00 118/73 07/15/19 00:00 Mechanical Ventilator 07/15/19 00:00 30 07/15/19 00:00 98.3 86 26 134/84 (101) 100 07/14/19 23:30 78 25 114/69 (84) 100 07/14/19 23:30 78 26 100 Mechanical Ventilator 30 80 26 30 07/14/19 23:00 80 22 116/75 (89) 100 07/14/19 23:00 25 116/54 Mechanical Ventilator 30 07/14/19 23:00 116/75 07/14/19 22:30 78 24 114/69 (84) 100 07/14/19 22:00 24 120/78 Mechanical Ventilator 30 07/14/19 22:00 120/78 07/14/19 22:00 74 22 120/78 (92) 100 07/14/19 21:45 76 24 102/68 (79) 100 07/14/19 21:30 77 22 97/68 (78) 100 07/14/19 21:28 97.9 07/14/19 21:15 82 26 105/69 (81) 100 07/14/19 21:00 26 118/71 Mechanical Ventilator 30 07/14/19 21:00 118/71 07/14/19 21:00 84 22 118/71 (87) 100 07/14/19 20:45 85 10 94/62 (73) 100 07/14/19 20:30 81 21 113/72 (86) 100 07/14/19 20:00 98.6 83 24 128/73 (91) 100 07/14/19 20:00 30 07/14/19 20:00 89 07/14/19 20:00 26 128/73 Mechanical Ventilator 30 07/14/19 20:00 128/73 07/14/19 20:00 Mechanical Ventilator 07/14/19 19:30 82 26 100 Mechanical Ventilator 30 86 28 30 07/14/19 19:30 81 20 119/76 (90) 100 07/14/19 19:00 20 118/78 Mechanical Ventilator 30 07/14/19 19:00 118/78 07/14/19 19:00 78 26 112/69 (83) 100 07/14/19 18:00 26 115/69 Mechanical Ventilator 30 07/14/19 18:00 89/60 07/14/19 18:00 76 25 115/69 (84) 100 07/14/19 17:00 93 23 98/59 (72) 100 07/14/19 17:00 26 98/59 Mechanical Ventilator 30 07/14/19 16:30 94 26 98/71 (80) 100 07/14/19 16:00 97 07/14/19 16:00 Mechanical Ventilator 07/14/19 16:00 20 111/65 Mechanical Ventilator 30 07/14/19 16:00 30 07/14/19 16:00 97.9 81 9 111/65 (80) 100 07/14/19 15:30 80 17 112/75 (87) 100 07/14/19 15:25 88 26 100 Mechanical Ventilator 30 88 26 30 07/14/19 15:00 17 123/79 Mechanical Ventilator 30 07/14/19 15:00 86 5 123/79 (94) 100 07/14/19 14:30 93 22 143/87 (105) 100 07/14/19 14:00 98 20 125/86 (99) 100 07/14/19 14:00 20 125/86 Mechanical Ventilator 30 07/14/19 14:00 125/86 07/14/19 13:10 98/60 07/14/19 13:00 20 144/86 Mechanical Ventilator 30 07/14/19 13:00 97 20 150/80 (103) 100 07/14/19 12:30 85 21 154/89 (110) 100 07/14/19 12:00 80 07/14/19 12:00 25 137/75 Mechanical Ventilator 30 07/14/19 12:00 30 07/14/19 12:00 98.6 82 23 137/75 (95) 100 07/14/19 12:00 Mechanical Ventilator 07/14/19 11:30 79 25 124/74 (91) 98 07/14/19 11:30 81 26 100 Mechanical Ventilator 30 79 26 30 07/14/19 11:00 90 19 109/73 (85) 100 07/14/19 11:00 22 109/73 Mechanical Ventilator 30 07/14/19 10:30 90 20 146/85 (105) 100 07/14/19 10:00 89 24 164/112 (129) 100 07/14/19 10:00 17 146/85 Mechanical Ventilator 30 07/14/19 09:30 75 26 135/79 (97) 100 07/14/19 09:00 79 26 115/74 (88) 100 07/14/19 09:00 20 130/72 Mechanical Ventilator 30 07/14/19 08:30 82 26 93/63 (73) 100 07/14/19 08:00 75 07/14/19 08:00 30 07/14/19 08:00 22 120/58 Mechanical Ventilator 30 07/14/19 08:00 98.8 83 26 96/65 (75) 100 07/14/19 08:00 Mechanical Ventilator 07/14/19 07:30 82 26 100 Mechanical Ventilator 30 84 26 30 07/14/19 07:00 25 113/74 Mechanical Ventilator 30 07/14/19 07:00 114/74 07/14/19 07:00 82 26 101/64 (76) 100 07/14/19 06:30 83 25 113/74 (87) 100 07/14/19 06:00 24 146/83 Mechanical Ventilator 30 07/14/19 06:00 146/83 07/14/19 06:00 83 24 146/83 (104) 100 07/14/19 05:30 96 20 135/87 (103) 100 07/14/19 05:00 83 23 144/77 (99) 100 07/14/19 05:00 23 144/77 Mechanical Ventilator 30 07/14/19 05:00 144/73 07/14/19 04:30 78 26 118/70 (86) 100 07/14/19 04:00 Mechanical Ventilator 07/14/19 04:00 99.3 86 23 103/68 (80) 100 07/14/19 04:00 30 07/14/19 04:00 23 103/68 Mechanical Ventilator 30 07/14/19 04:00 103/68 07/14/19 04:00 83 07/14/19 03:30 85 26 100 Mechanical Ventilator 30 86 26 30 07/14/19 03:00 23 134/83 Mechanical Ventilator 30 07/14/19 03:00 134/83 07/14/19 03:00 87 23 134/83 (100) 100 07/14/19 02:00 138 13 141/92 (108) 100 07/14/19 02:00 24 141/92 Mechanical Ventilator 30 07/14/19 02:00 141/92 07/14/19 01:00 82 13 145/85 (105) 100 07/14/19 01:00 13 145/85 Mechanical Ventilator 30 07/14/19 01:00 145/85 07/14/19 00:30 87 19 136/82 (100) 100 07/14/19 00:00 98.2 87 26 94/73 (80) 100 07/14/19 00:00 Mechanical Ventilator 07/14/19 00:00 26 94/73 Mechanical Ventilator 30 07/14/19 00:00 94/73 07/14/19 00:00 84 07/14/19 00:00 30 07/13/19 23:37 94 26 100 Mechanical Ventilator 30 93 26 30 07/13/19 23:01 100.1 07/13/19 23:00 90 30 115/70 (85) 100 07/13/19 23:00 30 115/70 Mechanical Ventilator 30 07/13/19 23:00 115/70 07/13/19 22:00 97 25 97/63 (74) 100 07/13/19 22:00 25 97/63 Mechanical Ventilator 30 07/13/19 22:00 97/63 07/13/19 21:00 97 19 97/64 (75) 100 07/13/19 21:00 19 97/64 Mechanical Ventilator 30 07/13/19 21:00 97/64 07/13/19 20:00 100.3 100 29 87/60 (69) 100 07/13/19 20:00 19 95/75 Mechanical Ventilator 30 07/13/19 20:00 95/75 07/13/19 20:00 Mechanical Ventilator 07/13/19 20:00 95 07/13/19 20:00 30 07/13/19 19:00 26 80/59 Mechanical Ventilator 30 07/13/19 19:00 90/59 07/13/19 19:00 100 26 100 Mechanical Ventilator 30 99 26 30 07/13/19 19:00 103 26 117/68 (84) 100 07/13/19 18:00 106 26 125/78 (94) 100 07/13/19 18:00 26 86/58 Mechanical Ventilator 30 07/13/19 18:00 86/58 07/13/19 17:30 108 22 97/61 (73) 100 07/13/19 17:00 100.0 103 12 102/64 (77) 100 07/13/19 17:00 25 97/61 Mechanical Ventilator 30 07/13/19 17:00 97/61 07/13/19 16:30 105 27 101/69 (80) 100 07/13/19 16:00 105 28 99/66 (77) 96 07/13/19 16:00 29 99/66 Mechanical Ventilator 30 07/13/19 16:00 99/66 07/13/19 16:00 Mechanical Ventilator 07/13/19 16:00 103 07/13/19 16:00 30 07/13/19 15:30 105 26 110/69 (83) 96 Intake and Output 07/14/19 07/15/19 19:00 07:00 Intake Total 678.84 ml 1178.685 ml Output Total 0 ml 0 ml Balance 678.84 ml 1178.685 ml Free Water 60 ml 520 ml IV Total 498.84 ml 128.685 ml Tube Feeding 120 ml 210 ml Other 320 ml Output Urine Total 0 ml 0 ml Stool Total 0 ml # Bowel Movements 1 Labs Test 07/13/19 08:45 07/14/19 04:00 07/15/19 04:11 White Blood Count 16.8 K/UL (4.8-10.8) 16.6 K/UL (4.8-10.8) 12.4 K/UL (4.8-10.8) Red Blood Count 3.35 M/UL (4.70-6.10) 3.36 M/UL (4.70-6.10) 3.47 M/UL (4.70-6.10) Hemoglobin 9.8 G/DL (14.2-18.0) 9.8 G/DL (14.2-18.0) 10.0 G/DL (14.2-18.0) Hematocrit 29.7 % (42.0-52.0) 30.5 % (42.0-52.0) 31.2 % (42.0-52.0) Mean Corpuscular Volume 89 FL (80-99) 91 FL (80-99) 90 FL (80-99) Mean Corpuscular Hemoglobin 29.3 PG (27.0-31.0) 29.1 PG (27.0-31.0) 28.9 PG (27.0-31.0) Mean Corpuscular Hemoglobin Concent 33.0 G/DL (32.0-36.0) 32.1 G/DL (32.0-36.0) 32.1 G/DL (32.0-36.0) Red Cell Distribution Width 15.5 % (11.6-14.8) 15.7 % (11.6-14.8) 15.5 % (11.6-14.8) Platelet Count 425 K/UL (150-450) 451 K/UL (150-450) 358 K/UL (150-450) Mean Platelet Volume 7.0 FL (6.5-10.1) 6.8 FL (6.5-10.1) 6.5 FL (6.5-10.1) Neutrophils (%) (Auto) 80.1 % (45.0-75.0) 80.5 % (45.0-75.0) 78.8 % (45.0-75.0) Lymphocytes (%) (Auto) 10.8 % (20.0-45.0) 8.8 % (20.0-45.0) 9.7 % (20.0-45.0) Monocytes (%) (Auto) 6.7 % (1.0-10.0) 8.0 % (1.0-10.0) 6.7 % (1.0-10.0) Eosinophils (%) (Auto) 1.4 % (0.0-3.0) 1.8 % (0.0-3.0) 3.8 % (0.0-3.0) Basophils (%) (Auto) 1.0 % (0.0-2.0) 0.9 % (0.0-2.0) 0.9 % (0.0-2.0) Prothrombin Time 12.2 SEC (9.30-11.50) Prothromb Time International Ratio 1.1 (0.9-1.1) Activated Partial Thromboplast Time 26 SEC (23-33) Sodium Level 140 MMOL/L (136-145) 140 MMOL/L (136-145) 136 MMOL/L (136-145) Potassium Level 4.2 MMOL/L (3.5-5.1) 4.5 MMOL/L (3.5-5.1) 4.5 MMOL/L (3.5-5.1) Chloride Level 94 MMOL/L (98-107) 96 MMOL/L (98-107) 92 MMOL/L (98-107) Carbon Dioxide Level 29 MMOL/L (21-32) 26 MMOL/L (21-32) 23 MMOL/L (21-32) Anion Gap 17 mmol/L (5-15) 18 mmol/L (5-15) 21 mmol/L (5-15) Blood Urea Nitrogen 71 mg/dL (7-18) 82 mg/dL (7-18) 85 mg/dL (7-18) Creatinine 9.5 MG/DL (0.55-1.30) 10.7 MG/DL (0.55-1.30) 10.9 MG/DL (0.55-1.30) Estimat Glomerular Filtration Rate 5.6 mL/min (>60) 4.9 mL/min (>60) 4.7 mL/min (>60) Glucose Level 174 MG/DL (74-106) 261 MG/DL (74-106) 168 MG/DL (74-106) Calcium Level 9.6 MG/DL (8.5-10.1) 10.0 MG/DL (8.5-10.1) 9.5 MG/DL (8.5-10.1) Total Bilirubin 0.6 MG/DL (0.2-1.0) 0.6 MG/DL (0.2-1.0) 0.5 MG/DL (0.2-1.0) Aspartate Amino Transf (AST/SGOT) 30 U/L (15-37) 30 U/L (15-37) 22 U/L (15-37) Alanine Aminotransferase (ALT/SGPT) 19 U/L (12-78) 17 U/L (12-78) 13 U/L (12-78) Alkaline Phosphatase 104 U/L (46-116) 105 U/L (46-116) 107 U/L (46-116) Total Protein 10.6 G/DL (6.4-8.2) 10.1 G/DL (6.4-8.2) 9.5 G/DL (6.4-8.2) Albumin 3.5 G/DL (3.4-5.0) 3.3 G/DL (3.4-5.0) 2.9 G/DL (3.4-5.0) Globulin 7.1 g/dL 6.6 g/dL Albumin/Globulin Ratio 0.5 (1.0-2.7) 0.4 (1.0-2.7) Phosphorus Level 6.7 MG/DL (2.5-4.9) 7.0 MG/DL (2.5-4.9) Magnesium Level 3.1 MG/DL (1.8-2.4) 2.7 MG/DL (1.8-2.4) Direct Bilirubin 0.2 MG/DL (0.0-0.3) Uric Acid 9.3 MG/DL (2.6-7.2) Troponin I 0.005 ng/mL (0.000-0.056) C-Reactive Protein, Quantitative 8.2 mg/dL (0.00-0.90) Pro-B-Type Natriuretic Peptide 07881 pg/mL (0-125) Height (Feet): 6 Height (Inches): 1.00 Weight (Pounds): 180 Objective General: nv, confused, sedated Heent: bilateral eye normal inspection, bilateral eye PERRL ++Ng Respiratory: normal breath sounds, no respiratory distress, intubated/vent +++ trach+++ Cardiovascular: regular rate, rhythm, no edema Gastrointestinal: normal inspection, soft, non-distended, peg+ Rectal: deferred Musculoskeletal: normal range of motion, non-tender, R fem cath++ Neurologic: alert, motor strength/tone normal, sensory intact, responsive, speech normal Skin: Decubitus/Ulcer - See RN skin exam. : jamaal+ Greg Cabral MD Jul 15, 2019 15:08
--- NOTE | 2019-07-15 15:30 | Cardiac Electrophysiology PN ---
Assessment/Plan Assessment/Plan 1. Elevated troponin. Low level and flat due to renal failure. On Aspirin. EF 60 %. 2. S/P Septic shock. On midodrine 3. ESRD, on HD per Dr. Cole. 4. COVID-19 positive pneumonia. On the Vent with 30% Fio2. S/P Tracheostomy 07/08/19 5. MRSA carrier. 6. COPD. 7. Anemia. 8. Dysphagia, S/P PEG 07/13/19 DW RN Subjective Subjective Covid positive x 3 PNA in ICU, on CPAP. Off pressors and on midodrine. S/P Tracheostomy. S/P PEG 07/13/19 S/P Left IG HD catheter placement and HD Objective Last 24 Hour Vital Signs Date Time Temp Pulse Resp B/P (MAP) Pulse Ox O2 Delivery O2 Flow Rate FiO2 07/15/19 15:00 126 22 147/95 (112) 100 07/15/19 14:50 127 30 100 Mechanical Ventilator 30 128 35 30 07/15/19 14:50 30 07/15/19 14:00 119 28 149/96 (113) 100 07/15/19 13:00 115 11 149/94 (112) 100 07/15/19 12:00 Mechanical Ventilator 07/15/19 12:00 119 07/15/19 12:00 30 07/15/19 12:00 99.6 115 33 116/78 (91) 100 07/15/19 11:08 119 35 100 Mechanical Ventilator 30 120 35 30 07/15/19 11:00 124 33 108/85 (93) 100 07/15/19 10:00 118 33 119/76 (90) 100 07/15/19 09:00 110 34 149/91 (110) 100 07/15/19 08:00 30 07/15/19 08:00 Mechanical Ventilator 07/15/19 08:00 106 07/15/19 08:00 98.6 104 33 114/72 (86) 100 07/15/19 08:00 30 07/15/19 07:47 102 30 100 Mechanical Ventilator 30 102 32 30 30 07/15/19 07:46 100 07/15/19 07:00 26 103/65 Mechanical Ventilator 30 07/15/19 07:00 103/65 07/15/19 07:00 100 23 102/65 (77) 100 07/15/19 06:00 93 26 102/69 (80) 100 07/15/19 06:00 26 102/64 Mechanical Ventilator 30 07/15/19 06:00 26 102/64 Mechanical Ventilator 30 07/15/19 06:00 102/64 07/15/19 05:45 101 26 92/56 (68) 100 07/15/19 05:30 96 26 110/69 (83) 100 07/15/19 05:00 98 24 90/53 (65) 100 07/15/19 05:00 27 90/53 Mechanical Ventilator 30 07/15/19 05:00 90/53 07/15/19 04:45 101 24 112/65 (81) 100 07/15/19 04:30 105 24 90/61 (71) 100 07/15/19 04:15 104 26 73/55 (61) 100 07/15/19 04:00 Mechanical Ventilator 07/15/19 04:00 30 07/15/19 04:00 92 07/15/19 04:00 26 73/55 Mechanical Ventilator 30 07/15/19 04:00 76/56 07/15/19 04:00 98.5 106 23 76/52 (60) 100 07/15/19 03:30 106 31 100 Mechanical Ventilator 30 107 32 30 07/15/19 03:30 106 26 112/64 (80) 100 07/15/19 03:00 92 22 131/74 (93) 100 07/15/19 03:00 26 131/73 Mechanical Ventilator 30 07/15/19 03:00 131/73 07/15/19 02:45 80 25 115/76 (89) 100 07/15/19 02:30 82 24 112/73 (86) 100 07/15/19 02:15 85 27 108/71 (83) 100 07/15/19 02:00 88 23 113/71 (85) 100 07/15/19 02:00 24 113/71 Mechanical Ventilator 30 07/15/19 02:00 113/71 07/15/19 01:45 86 25 131/79 (96) 100 07/15/19 01:30 83 25 105/69 (81) 100 07/15/19 01:15 82 20 116/74 (88) 100 07/15/19 01:00 74 26 140/78 (98) 100 07/15/19 01:00 26 140/78 Mechanical Ventilator 30 07/15/19 01:00 140/78 07/15/19 00:30 77 26 115/77 (90) 100 07/15/19 00:00 86 07/15/19 00:00 26 118/73 Mechanical Ventilator 30 07/15/19 00:00 118/73 07/15/19 00:00 Mechanical Ventilator 07/15/19 00:00 30 07/15/19 00:00 98.3 86 26 134/84 (101) 100 07/14/19 23:30 78 25 114/69 (84) 100 07/14/19 23:30 78 26 100 Mechanical Ventilator 30 80 26 30 07/14/19 23:00 80 22 116/75 (89) 100 07/14/19 23:00 25 116/54 Mechanical Ventilator 30 07/14/19 23:00 116/75 07/14/19 22:30 78 24 114/69 (84) 100 07/14/19 22:00 24 120/78 Mechanical Ventilator 30 07/14/19 22:00 120/78 07/14/19 22:00 74 22 120/78 (92) 100 07/14/19 21:45 76 24 102/68 (79) 100 07/14/19 21:30 77 22 97/68 (78) 100 07/14/19 21:28 97.9 07/14/19 21:15 82 26 105/69 (81) 100 07/14/19 21:00 26 118/71 Mechanical Ventilator 30 07/14/19 21:00 118/71 07/14/19 21:00 84 22 118/71 (87) 100 07/14/19 20:45 85 10 94/62 (73) 100 07/14/19 20:30 81 21 113/72 (86) 100 07/14/19 20:00 98.6 83 24 128/73 (91) 100 07/14/19 20:00 30 07/14/19 20:00 89 07/14/19 20:00 26 128/73 Mechanical Ventilator 30 07/14/19 20:00 128/73 07/14/19 20:00 Mechanical Ventilator 07/14/19 19:30 82 26 100 Mechanical Ventilator 30 86 28 30 07/14/19 19:30 81 20 119/76 (90) 100 07/14/19 19:00 20 118/78 Mechanical Ventilator 30 07/14/19 19:00 118/78 07/14/19 19:00 78 26 112/69 (83) 100 07/14/19 18:00 26 115/69 Mechanical Ventilator 30 07/14/19 18:00 89/60 07/14/19 18:00 76 25 115/69 (84) 100 07/14/19 17:00 93 23 98/59 (72) 100 07/14/19 17:00 26 98/59 Mechanical Ventilator 30 07/14/19 16:30 94 26 98/71 (80) 100 07/14/19 16:00 97 07/14/19 16:00 Mechanical Ventilator 07/14/19 16:00 20 111/65 Mechanical Ventilator 30 07/14/19 16:00 30 07/14/19 16:00 97.9 81 9 111/65 (80) 100 07/14/19 15:30 80 17 112/75 (87) 100 07/14/19 15:25 88 26 100 Mechanical Ventilator 30 88 26 30 Intake and Output 07/14/19 07/15/19 19:00 07:00 Intake Total 678.84 ml 1178.685 ml Output Total 0 ml 0 ml Balance 678.84 ml 1178.685 ml Free Water 60 ml 520 ml IV Total 498.84 ml 128.685 ml Tube Feeding 120 ml 210 ml Other 320 ml Output Urine Total 0 ml 0 ml Stool Total 0 ml # Bowel Movements 1 Laboratory Tests Test 07/15/19 04:11 White Blood Count 12.4 K/UL (4.8-10.8) H Red Blood Count 3.47 M/UL (4.70-6.10) L Hemoglobin 10.0 G/DL (14.2-18.0) L Hematocrit 31.2 % (42.0-52.0) L Mean Corpuscular Volume 90 FL (80-99) Mean Corpuscular Hemoglobin 28.9 PG (27.0-31.0) Mean Corpuscular Hemoglobin Concent 32.1 G/DL (32.0-36.0) Red Cell Distribution Width 15.5 % (11.6-14.8) H Platelet Count 358 K/UL (150-450) Mean Platelet Volume 6.5 FL (6.5-10.1) Neutrophils (%) (Auto) 78.8 % (45.0-75.0) H Lymphocytes (%) (Auto) 9.7 % (20.0-45.0) L Monocytes (%) (Auto) 6.7 % (1.0-10.0) Eosinophils (%) (Auto) 3.8 % (0.0-3.0) H Basophils (%) (Auto) 0.9 % (0.0-2.0) Sodium Level 136 MMOL/L (136-145) Potassium Level 4.5 MMOL/L (3.5-5.1) Chloride Level 92 MMOL/L (98-107) L Carbon Dioxide Level 23 MMOL/L (21-32) Anion Gap 21 mmol/L (5-15) H Blood Urea Nitrogen 85 mg/dL (7-18) H Creatinine 10.9 MG/DL (0.55-1.30) H Estimat Glomerular Filtration Rate 4.7 mL/min (>60) Glucose Level 168 MG/DL (74-106) H Uric Acid 9.3 MG/DL (2.6-7.2) H Calcium Level 9.5 MG/DL (8.5-10.1) Phosphorus Level 7.0 MG/DL (2.5-4.9) H Magnesium Level 2.7 MG/DL (1.8-2.4) H Total Bilirubin 0.5 MG/DL (0.2-1.0) Aspartate Amino Transf (AST/SGOT) 22 U/L (15-37) Alanine Aminotransferase (ALT/SGPT) 13 U/L (12-78) Alkaline Phosphatase 107 U/L (46-116) Troponin I 0.005 ng/mL (0.000-0.056) C-Reactive Protein, Quantitative 8.2 mg/dL (0.00-0.90) H Pro-B-Type Natriuretic Peptide 16570 pg/mL (0-125) H Total Protein 9.5 G/DL (6.4-8.2) H Albumin 2.9 G/DL (3.4-5.0) L Globulin 6.6 g/dL Albumin/Globulin Ratio 0.4 (1.0-2.7) L Objective HEAD AND NECK: No JVD. Tracheostomy in place. Left IJ HD catheter now in place LUNGS: Decreased breath sounds. CARDIOVASCULAR: Regular S1 and S2. Tachycardic. ABDOMEN: Soft. PEG in place EXTREMITIES: No pitting edema. Left FV Gio Engle MD Jul 15, 2019 15:30
--- NOTE | 2019-07-15 17:10 | Surgery Progress Note ---
Surgery Progress Note Subjective Procedure Performed Right femoral temporary hemodialysis catheter removal Additional Comments tpa place din line and was able to have HD today with good flow Objective Last 24 Hour Vital Signs Date Time Temp Pulse Resp B/P (MAP) Pulse Ox O2 Delivery O2 Flow Rate FiO2 07/15/19 16:00 121 07/15/19 16:00 122 32 121/71 (88) 100 07/15/19 15:00 126 22 147/95 (112) 100 07/15/19 14:50 127 30 100 Mechanical Ventilator 30 128 35 30 07/15/19 14:50 30 07/15/19 14:00 119 28 149/96 (113) 100 07/15/19 13:00 115 11 149/94 (112) 100 07/15/19 12:00 Mechanical Ventilator 07/15/19 12:00 119 07/15/19 12:00 30 07/15/19 12:00 99.6 115 33 116/78 (91) 100 07/15/19 11:08 119 35 100 Mechanical Ventilator 30 120 35 30 07/15/19 11:00 124 33 108/85 (93) 100 07/15/19 10:00 118 33 119/76 (90) 100 07/15/19 09:00 110 34 149/91 (110) 100 07/15/19 08:00 30 07/15/19 08:00 Mechanical Ventilator 07/15/19 08:00 106 07/15/19 08:00 98.6 104 33 114/72 (86) 100 07/15/19 08:00 30 07/15/19 07:47 102 30 100 Mechanical Ventilator 30 102 32 30 30 07/15/19 07:46 100 07/15/19 07:00 26 103/65 Mechanical Ventilator 30 07/15/19 07:00 103/65 07/15/19 07:00 100 23 102/65 (77) 100 07/15/19 06:00 93 26 102/69 (80) 100 07/15/19 06:00 26 102/64 Mechanical Ventilator 30 07/15/19 06:00 26 102/64 Mechanical Ventilator 30 07/15/19 06:00 102/64 07/15/19 05:45 101 26 92/56 (68) 100 07/15/19 05:30 96 26 110/69 (83) 100 07/15/19 05:00 98 24 90/53 (65) 100 07/15/19 05:00 27 90/53 Mechanical Ventilator 30 07/15/19 05:00 90/53 07/15/19 04:45 101 24 112/65 (81) 100 07/15/19 04:30 105 24 90/61 (71) 100 07/15/19 04:15 104 26 73/55 (61) 100 07/15/19 04:00 Mechanical Ventilator 07/15/19 04:00 30 07/15/19 04:00 92 07/15/19 04:00 26 73/55 Mechanical Ventilator 30 07/15/19 04:00 76/56 07/15/19 04:00 98.5 106 23 76/52 (60) 100 07/15/19 03:30 106 31 100 Mechanical Ventilator 30 107 32 30 07/15/19 03:30 106 26 112/64 (80) 100 07/15/19 03:00 92 22 131/74 (93) 100 07/15/19 03:00 26 131/73 Mechanical Ventilator 30 07/15/19 03:00 131/73 07/15/19 02:45 80 25 115/76 (89) 100 07/15/19 02:30 82 24 112/73 (86) 100 07/15/19 02:15 85 27 108/71 (83) 100 07/15/19 02:00 88 23 113/71 (85) 100 07/15/19 02:00 24 113/71 Mechanical Ventilator 30 07/15/19 02:00 113/71 07/15/19 01:45 86 25 131/79 (96) 100 07/15/19 01:30 83 25 105/69 (81) 100 07/15/19 01:15 82 20 116/74 (88) 100 07/15/19 01:00 74 26 140/78 (98) 100 07/15/19 01:00 26 140/78 Mechanical Ventilator 30 07/15/19 01:00 140/78 07/15/19 00:30 77 26 115/77 (90) 100 07/15/19 00:00 86 07/15/19 00:00 26 118/73 Mechanical Ventilator 30 07/15/19 00:00 118/73 07/15/19 00:00 Mechanical Ventilator 07/15/19 00:00 30 6/4/20 00:00 98.3 86 26 134/84 (101) 100 07/14/19 23:30 78 25 114/69 (84) 100 07/14/19 23:30 78 26 100 Mechanical Ventilator 30 80 26 30 07/14/19 23:00 80 22 116/75 (89) 100 07/14/19 23:00 25 116/54 Mechanical Ventilator 30 07/14/19 23:00 116/75 07/14/19 22:30 78 24 114/69 (84) 100 07/14/19 22:00 24 120/78 Mechanical Ventilator 30 07/14/19 22:00 120/78 07/14/19 22:00 74 22 120/78 (92) 100 07/14/19 21:45 76 24 102/68 (79) 100 07/14/19 21:30 77 22 97/68 (78) 100 07/14/19 21:28 97.9 07/14/19 21:15 82 26 105/69 (81) 100 07/14/19 21:00 26 118/71 Mechanical Ventilator 30 07/14/19 21:00 118/71 07/14/19 21:00 84 22 118/71 (87) 100 07/14/19 20:45 85 10 94/62 (73) 100 07/14/19 20:30 81 21 113/72 (86) 100 07/14/19 20:00 98.6 83 24 128/73 (91) 100 07/14/19 20:00 30 07/14/19 20:00 89 07/14/19 20:00 26 128/73 Mechanical Ventilator 30 07/14/19 20:00 128/73 07/14/19 20:00 Mechanical Ventilator 07/14/19 19:30 82 26 100 Mechanical Ventilator 30 86 28 30 07/14/19 19:30 81 20 119/76 (90) 100 07/14/19 19:00 20 118/78 Mechanical Ventilator 30 07/14/19 19:00 118/78 07/14/19 19:00 78 26 112/69 (83) 100 07/14/19 18:00 26 115/69 Mechanical Ventilator 30 07/14/19 18:00 89/60 07/14/19 18:00 76 25 115/69 (84) 100 I&O Intake and Output 07/14/19 07/15/19 19:00 07:00 Intake Total 678.84 ml 1178.685 ml Output Total 0 ml 0 ml Balance 678.84 ml 1178.685 ml Free Water 60 ml 520 ml IV Total 498.84 ml 128.685 ml Tube Feeding 120 ml 210 ml Other 320 ml Output Urine Total 0 ml 0 ml Stool Total 0 ml # Bowel Movements 1 Dressing: other Wound: other Drains: other Cardiovascular: RSR Respiratory: decreased breath sounds Abdomen: soft, non-tender, present bowel sounds Extremities: no cyanosis Laboratory Tests Test 07/15/19 04:11 White Blood Count 12.4 K/UL (4.8-10.8) H Red Blood Count 3.47 M/UL (4.70-6.10) L Hemoglobin 10.0 G/DL (14.2-18.0) L Hematocrit 31.2 % (42.0-52.0) L Mean Corpuscular Volume 90 FL (80-99) Mean Corpuscular Hemoglobin 28.9 PG (27.0-31.0) Mean Corpuscular Hemoglobin Concent 32.1 G/DL (32.0-36.0) Red Cell Distribution Width 15.5 % (11.6-14.8) H Platelet Count 358 K/UL (150-450) Mean Platelet Volume 6.5 FL (6.5-10.1) Neutrophils (%) (Auto) 78.8 % (45.0-75.0) H Lymphocytes (%) (Auto) 9.7 % (20.0-45.0) L Monocytes (%) (Auto) 6.7 % (1.0-10.0) Eosinophils (%) (Auto) 3.8 % (0.0-3.0) H Basophils (%) (Auto) 0.9 % (0.0-2.0) Sodium Level 136 MMOL/L (136-145) Potassium Level 4.5 MMOL/L (3.5-5.1) Chloride Level 92 MMOL/L (98-107) L Carbon Dioxide Level 23 MMOL/L (21-32) Anion Gap 21 mmol/L (5-15) H Blood Urea Nitrogen 85 mg/dL (7-18) H Creatinine 10.9 MG/DL (0.55-1.30) H Estimat Glomerular Filtration Rate 4.7 mL/min (>60) Glucose Level 168 MG/DL (74-106) H Uric Acid 9.3 MG/DL (2.6-7.2) H Calcium Level 9.5 MG/DL (8.5-10.1) Phosphorus Level 7.0 MG/DL (2.5-4.9) H Magnesium Level 2.7 MG/DL (1.8-2.4) H Total Bilirubin 0.5 MG/DL (0.2-1.0) Aspartate Amino Transf (AST/SGOT) 22 U/L (15-37) Alanine Aminotransferase (ALT/SGPT) 13 U/L (12-78) Alkaline Phosphatase 107 U/L (46-116) Troponin I 0.005 ng/mL (0.000-0.056) C-Reactive Protein, Quantitative 8.2 mg/dL (0.00-0.90) H Pro-B-Type Natriuretic Peptide 37416 pg/mL (0-125) H Total Protein 9.5 G/DL (6.4-8.2) H Albumin 2.9 G/DL (3.4-5.0) L Globulin 6.6 g/dL Albumin/Globulin Ratio 0.4 (1.0-2.7) L Plan Problems: (1) Suspected COVID-19 virus infection (2) HTN (hypertension) (3) CASSANDRA (acute kidney injury) Assessment & Plan: Needs urgent HD needs access patient okay and consented see note will follow with recs new line placed discussed with team and nephrology HD line functional when checked has TPA now please use appropriately Cathflo used again this flow during dialysis on 430 was low. Will monitor may need line change 5/4 plan for HD as per renal may need to take fluid off with HD edema anasarca dressings saturated and changed will monitor cont with HD IJ left line placed for HD given extent of prior line in place. leukocytosis blood cx negative may need to change out line (4) Anemia in chronic kidney disease (CKD) (5) Anemia (6) Renal failure (7) Suspected COVID-19 virus infection Assessment & Plan: Pt deconditioned and despite all skin preventions Pt noted to have developed several pressure injuries. . Stable dry eschar noted to clefts of R and L ears. No erythema noted . DTPI noted to L trochanter. Base of injury is maroon in colour with marginal erythema along borders. Partially opened DTPI Sacrum, R and L Buttocks. Base of wound is maroon with two small open wounds L sacrum and L buttocks. Pt has an APM/MOMO Mattress overlay and is being positioned with pillows as per tolerance and within protocols. worsening despite medical efforts will cont to provide therapy Tx.Plan: Apply Cavilon Skin Barrier to both ears Daily and prn. Apply Moisture Barrier Paste to Sacrum,R and L Buttocks. Cover with Optifoam drsgs. Change every 3 days and PRN. Apply Cavilon Skin Barrier to R and L trochanter. Cover each site with Optifoam drsgs.Change every 7 days and PRN. Apply Cavilon Skin Barrier to both heels. Cover each heel with Optifoam drsg. Change every 7 days and prn. Off-load heels with pillow. Reposition at least every 2hours or as tolerated. APM/MOMO Mattress overlay. (8) COVID-19 Assessment & Plan: COVID + c diff negative febrile leukocytosis renal insufficiency see above cont resp care Rx as per ID worsening on vent support now cxr noted on pressors prognosis guarded repeat covid ++ weaning vent and pressors off slowly showing improvement slowly recovering will need trach as unable to wean vent safely called and spoke with country conservatorship. consent obtained s/p trach pending peg Yaniv Mast Jul 15, 2019 17:10
[2019-07-15] MEDS: LORazepam Inj 2mg/ml 1ml IV PRN (17:30)
[2019-07-15] MEDS: Dyna-Hex 2% Top Sol 2oz TOPIC SCH (20:31)
[2019-07-15] MEDS: Hydromorphone 0.5mg/0.5ml inj IVP PRN (20:31)
[2019-07-15] MEDS: NOREPINEPHRINE BITARTRATE IV SCH ×3 (23:00)
[2019-07-15] MEDS: D5W IV SCH ×3 (23:00)
[2019-07-16] VITALS (24 sets, daily range): BP systolic 88–152; BP diastolic 64–99
--- NOTE | 2019-07-16 01:25 | Pulmonolgy Critical Care Note ---
Critical Care - Asmt/Plan Assessment/Plan: Pulmonary CCM Progress Note HPI: Patient is a 68 year old man, [place] [place], admitted c/o shortness of breath, cough, noted to have Covid 19 Pneumonia, Respiratory Failure Remains on Ventilator, CXR improving infiltrates ETT adjusted Septic Shock, pressors off currently, on Mitodrine Preserved EF FIO2 40%-50%, P5, adequate O2 sats, remains on ACVC, s/p Tracheostomy, CXR stable, sp PEG Seen earlier on 07/15/2019 ID following Past Medical History: COPD, CKD, Hypertension, Anemia Allergies: No Known Allergies Improving Pulmonary Status on HD Physical Exam Vital Signs Noted Sedated on ventilator WDWN, no distress HEENT: NCAT,moist mm Chest: Occasional rhonchi Heart: HS1, HS2, RRR Abdomen: SNTND, no masses Extremities: Well perfused, no edema BELT GLASS SANDER: No focal signs, no seizures, sedated Impression: COVID-19 virus infection Pneumonia Respiratory failure on ventilator, wean as tolerated CKD - on HD Hypotension on pressors previously Cardiomegaly Lymphopenia Elevated AST COPD Chronic Kidney Disease - HD H/o Hypertension Worsening anemia Plan: Tolerated Tracheostomy Antibiotics per ID HD Pressors PRN ACVC - wean as tolerated [employer] Medications 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 Monitor cultures/viral studies PPX Hemodialysis per Renal Psychiatry following [facility] - [facility] requested for when available, [facility] - not available as yet Laboratory Tests Noted: CXR: Hypoventilatory exam, interstitial changes, cardiomegaly, improving infiltrates Subjective ROS Limited/Unobtainable: No Constitutional: Denies: fever Respiratory: Reports: dry cough, shortness of breath Gastrointestinal/Abdominal: Reports: diarrhea, other - colace was stopped Psychiatric: Reports: other - refuses labs Allergies: Coded Allergies: No Known Allergies (Unverified , 05/28/19) All Systems: reviewed and negative except above Labs noted Critical Care - Objective Last 24 Hour Vital Signs Date Time Temp Pulse Resp B/P (MAP) Pulse Ox O2 Delivery O2 Flow Rate FiO2 07/16/19 01:00 117 26 140/92 (108) 100 07/16/19 00:00 98.6 115 26 127/83 (98) 100 07/16/19 00:00 Mechanical Ventilator 07/15/19 23:30 112 26 100 Mechanical Ventilator 30 114 27 30 07/15/19 23:00 112 27 118/87 (97) 100 07/15/19 22:00 108 26 102/63 (76) 100 07/15/19 21:06 97.4 07/15/19 21:00 116 24 124/80 (95) 100 07/15/19 20:00 97.4 126 40 130/87 (101) 100 07/15/19 20:00 30 07/15/19 20:00 Mechanical Ventilator 07/15/19 20:00 126 07/15/19 19:30 130 34 30 07/15/19 19:00 128 30 129/91 (104) 100 07/15/19 18:00 136 38 142/95 (111) 100 07/15/19 17:00 99.2 124 27 125/81 (96) 100 07/15/19 16:00 Mechanical Ventilator 07/15/19 16:00 121 07/15/19 16:00 122 32 121/71 (88) 100 07/15/19 15:00 126 22 147/95 (112) 100 07/15/19 14:50 127 30 100 Mechanical Ventilator 30 128 35 30 07/15/19 14:50 30 07/15/19 14:00 119 28 149/96 (113) 100 07/15/19 13:00 115 11 149/94 (112) 100 07/15/19 12:00 Mechanical Ventilator 07/15/19 12:00 119 07/15/19 12:00 30 07/15/19 12:00 99.6 115 33 116/78 (91) 100 07/15/19 11:08 119 35 100 Mechanical Ventilator 30 120 35 30 07/15/19 11:00 124 33 108/85 (93) 100 07/15/19 10:00 118 33 119/76 (90) 100 07/15/19 09:00 110 34 149/91 (110) 100 07/15/19 08:00 30 07/15/19 08:00 Mechanical Ventilator 07/15/19 08:00 106 07/15/19 08:00 98.6 104 33 114/72 (86) 100 07/15/19 08:00 30 07/15/19 07:47 102 30 100 Mechanical Ventilator 30 102 32 30 30 07/15/19 07:46 100 07/15/19 07:00 26 103/65 Mechanical Ventilator 30 07/15/19 07:00 103/65 07/15/19 07:00 100 23 102/65 (77) 100 07/15/19 06:00 93 26 102/69 (80) 100 07/15/19 06:00 26 102/64 Mechanical Ventilator 30 07/15/19 06:00 26 102/64 Mechanical Ventilator 30 07/15/19 06:00 102/64 07/15/19 05:45 101 26 92/56 (68) 100 07/15/19 05:30 96 26 110/69 (83) 100 07/15/19 05:00 98 24 90/53 (65) 100 07/15/19 05:00 27 90/53 Mechanical Ventilator 30 07/15/19 05:00 90/53 07/15/19 04:45 101 24 112/65 (81) 100 07/15/19 04:30 105 24 90/61 (71) 100 07/15/19 04:15 104 26 73/55 (61) 100 07/15/19 04:00 Mechanical Ventilator 07/15/19 04:00 30 07/15/19 04:00 92 07/15/19 04:00 26 73/55 Mechanical Ventilator 30 07/15/19 04:00 76/56 07/15/19 04:00 98.5 106 23 76/52 (60) 100 07/15/19 03:30 106 31 100 Mechanical Ventilator 30 107 32 30 07/15/19 03:30 106 26 112/64 (80) 100 07/15/19 03:00 92 22 131/74 (93) 100 07/15/19 03:00 26 131/73 Mechanical Ventilator 30 07/15/19 03:00 131/73 07/15/19 02:45 80 25 115/76 (89) 100 07/15/19 02:30 82 24 112/73 (86) 100 07/15/19 02:15 85 27 108/71 (83) 100 07/15/19 02:00 88 23 113/71 (85) 100 07/15/19 02:00 24 113/71 Mechanical Ventilator 30 07/15/19 02:00 113/71 07/15/19 01:45 86 25 131/79 (96) 100 07/15/19 01:30 83 25 105/69 (81) 100 Accucheck: 164 Critical Care - Subjective ROS Limited/Unobtainable: No Condition: stable IV Access: central FI02: 30 Vent Support Breath Rate: 26 Vent Support Mode: AC Vent Tidal Volume: 500 Sputum Amount: Small PEEP: 5.0 PIP: 16 Tube Feeding Amount: 35 I&O: Intake and Output 07/15/19 07/16/19 19:00 07:00 Intake Total 450 ml 270 ml Output Total 1000 ml Balance -550 ml 270 ml Free Water 30 ml 60 ml Tube Feeding 420 ml 210 ml Hemodialysis UF 1000 ml # Bowel Movements 2 ET-Tube: 7.5 ET Position: 24 Arturo Mckeon MD Jul 16, 2019 01:24
[2019-07-16] MEDS: Albuterol 90mcg Inhaler 8gm INH SCH ×6 (03:28→23:25)
[2019-07-16] MEDS: Renvela 2400 mg pkt NG SCH ×4 (06:35→23:40)
[2019-07-16] MEDS: NovoLOG Insulin Flexpen SUBQ SCH ×4 (06:35→23:40)
[2019-07-16 07:04] LABS: ALANINE AMINOTRANSFERASE 9 U/L (12-78); ALBUMIN 2.9 G/DL (3.4-5.0); ALBUMIN/GLOBULIN RATIO 0.4 (1.0-2.7); ALKALINE PHOSPHATASE 136 U/L (46-116); ANION GAP 21 mmol/L (5-15); ASPARTATE AMINO TRANSFERASE 30 U/L (15-37); BILIRUBIN,TOTAL 0.6 MG/DL (0.2-1.0); BLOOD UREA NITROGEN 60 mg/dL (7-18); CALCIUM 9.6 MG/DL (8.5-10.1); CARBON DIOXIDE 20 MMOL/L (21-32); CHLORIDE 95 MMOL/L (98-107); CREATININE 8.3 MG/DL (0.55-1.30); POTASSIUM 4.1 MMOL/L (3.5-5.1); SODIUM 136 MMOL/L (136-145)
[2019-07-16 07:16] LABS: BASOPHILS % (AUTO) 0.5 % (0.0-2.0); EOSINOPHILS % (AUTO) 1.4 % (0.0-3.0); HEMATOCRIT 31.9 % (42.0-52.0); HEMOGLOBIN 10.2 G/DL (14.2-18.0); LYMPHOCYTES % (AUTO) 8.9 % (20.0-45.0); MEAN CORPUSCULAR VOLUME 90 FL (80-99); MONOCYTES % (AUTO) 6.4 % (1.0-10.0); NEUTROPHILS % (AUTO) 82.8 % (45.0-75.0); PLATELET COUNT 380 K/UL (150-450); RED BLOOD COUNT 3.55 M/UL (4.70-6.10); RED CELL DISTRIBUTION WIDTH 15.8 % (11.6-14.8); WHITE BLOOD COUNT 12.7 K/UL (4.8-10.8)
[2019-07-16] MEDS: Pantoprazole Inj IVP SCH (08:31)
[2019-07-16] MEDS: Midodrine 10mg tab NG SCH (08:33)
[2019-07-16] MEDS: Enoxaparin 30mg Inj SUBQ SCH (08:33)
--- NOTE | 2019-07-16 10:11 | Infectious Diseases Prog Note ---
Assessment/Plan Assessment/Plan IMPRESSION: 1. COVID19 pneumonia Positive: 05/27, 05/31 , 06/05, 06/09 ,06/17, 06/19, 06/23, 06/27, 07/03 2. MRSA carrier. 3. Chronic kidney disease , end-stage renal disease. 4. COPD. 5. Hypertension. 6. Anemia. 7. Hypothyroidism. 8. Hyperlipidemia. 9. Major depression. 10. Leukocytosis 11. Hypotension 12. Hepatitis C 13. Hyperuricemia 14. Diarrhea 15. septic shock 16. Leukocytosis 17. Bacteremia with Staph epidermidis Subsequent cultures negative RECOMMENDATIONS: Observe off antibiotic Finished hydroxychloroquine. Will f/u COVID19 test Subjective ROS Limited/Unobtainable: Yes Constitutional: Denies: fever Cardiovascular: Reports: other - off of Levophed Neurologic: Reports: confusion, other - on restraint Allergies: Coded Allergies: No Known Allergies (Unverified , 05/28/19) Objective Vital Signs Last 24 Hour Vital Signs Date Time Temp Pulse Resp B/P (MAP) Pulse Ox O2 Delivery O2 Flow Rate FiO2 07/16/19 08:02 100 07/16/19 08:00 113 07/16/19 08:00 Mechanical Ventilator 07/16/19 08:00 98.1 112 24 125/88 (100) 100 07/16/19 08:00 30 07/16/19 07:00 114 27 138/88 (105) 100 07/16/19 07:00 30 07/16/19 06:59 114 24 100 Mechanical Ventilator 30 116 27 30 30 07/16/19 06:00 114 32 131/82 (98) 100 07/16/19 05:00 113 28 88/64 (72) 100 07/16/19 04:00 Mechanical Ventilator 07/16/19 04:00 98.3 128 38 101/65 (77) 100 07/16/19 04:00 114 07/16/19 04:00 30 07/16/19 03:29 115 27 100 Mechanical Ventilator 30 117 26 30 07/16/19 03:00 111 25 116/71 (86) 100 07/16/19 02:00 116 22 150/96 (114) 100 07/16/19 01:00 117 26 140/92 (108) 100 07/16/19 00:00 98.6 115 26 127/83 (98) 100 07/16/19 00:00 Mechanical Ventilator 07/15/19 23:30 112 26 100 Mechanical Ventilator 30 114 27 30 07/15/19 23:00 112 27 118/87 (97) 100 07/15/19 23:00 124/80 07/15/19 22:00 108 26 102/63 (76) 100 07/15/19 21:06 97.4 07/15/19 21:00 116 24 124/80 (95) 100 07/15/19 20:00 97.4 126 40 130/87 (101) 100 07/15/19 20:00 30 07/15/19 20:00 Mechanical Ventilator 07/15/19 20:00 126 07/15/19 19:30 130 34 30 07/15/19 19:00 128 30 129/91 (104) 100 07/15/19 18:00 136 38 142/95 (111) 100 07/15/19 17:00 99.2 124 27 125/81 (96) 100 07/15/19 16:00 Mechanical Ventilator 07/15/19 16:00 121 07/15/19 16:00 122 32 121/71 (88) 100 07/15/19 15:00 126 22 147/95 (112) 100 07/15/19 14:50 127 30 100 Mechanical Ventilator 30 128 35 30 07/15/19 14:50 30 07/15/19 14:00 119 28 149/96 (113) 100 07/15/19 13:00 115 11 149/94 (112) 100 07/15/19 12:00 Mechanical Ventilator 07/15/19 12:00 119 07/15/19 12:00 30 07/15/19 12:00 99.6 115 33 116/78 (91) 100 07/15/19 11:08 119 35 100 Mechanical Ventilator 30 120 35 30 07/15/19 11:00 124 33 108/85 (93) 100 Height (Feet): 6 Height (Inches): 1.00 Weight (Pounds): 182 HEENT: status post trach Respiratory/Chest: other - on Ventilator, FIO2+30% Cardiovascular: tachycardia, other - HD & left sublavian line Extremities: no edema Neurologic/Psychiatric: disoriented Laboratory Tests Test 07/16/19 04:40 07/16/19 04:45 Phosphorus Level 6.0 MG/DL (2.5-4.9) H White Blood Count 12.7 K/UL (4.8-10.8) H Red Blood Count 3.55 M/UL (4.70-6.10) L Hemoglobin 10.2 G/DL (14.2-18.0) L Hematocrit 31.9 % (42.0-52.0) L Mean Corpuscular Volume 90 FL (80-99) Mean Corpuscular Hemoglobin 28.8 PG (27.0-31.0) Mean Corpuscular Hemoglobin Concent 31.9 G/DL (32.0-36.0) L Red Cell Distribution Width 15.8 % (11.6-14.8) H Platelet Count 380 K/UL (150-450) Mean Platelet Volume 7.0 FL (6.5-10.1) Neutrophils (%) (Auto) 82.8 % (45.0-75.0) H Lymphocytes (%) (Auto) 8.9 % (20.0-45.0) L Monocytes (%) (Auto) 6.4 % (1.0-10.0) Eosinophils (%) (Auto) 1.4 % (0.0-3.0) Basophils (%) (Auto) 0.5 % (0.0-2.0) Sodium Level 136 MMOL/L (136-145) Potassium Level 4.1 MMOL/L (3.5-5.1) Chloride Level 95 MMOL/L (98-107) L Carbon Dioxide Level 20 MMOL/L (21-32) L Anion Gap 21 mmol/L (5-15) H Blood Urea Nitrogen 60 mg/dL (7-18) H Creatinine 8.3 MG/DL (0.55-1.30) H Estimat Glomerular Filtration Rate 6.5 mL/min (>60) Glucose Level 189 MG/DL (74-106) H Calcium Level 9.6 MG/DL (8.5-10.1) Total Bilirubin 0.6 MG/DL (0.2-1.0) Aspartate Amino Transf (AST/SGOT) 30 U/L (15-37) Alanine Aminotransferase (ALT/SGPT) 9 U/L (12-78) L Alkaline Phosphatase 136 U/L (46-116) H Total Protein 9.5 G/DL (6.4-8.2) H Albumin 2.9 G/DL (3.4-5.0) L Globulin 6.6 g/dL Albumin/Globulin Ratio 0.4 (1.0-2.7) L Current Medications Medications (Trade) Dose Ordered Sig/Anthony Route PRN Reason Start Time Stop Time Status Last Admin Dose Admin Acetaminophen (Tylenol) 650 mg Q4H PRN NG For Pain 07/11/19 08:00 08/10/19 07:59 07/13/19 22:31 Albuterol Sulfate (Proventil MDI) 2 puff Q4HRT INH 06/06/19 23:00 08/30/19 18:59 07/16/19 06:59 Chlorhexidine Gluconate (Michelle-Hex 2%) 1 applic DAILY@2000 TOPIC 06/07/19 20:00 09/05/19 19:59 07/15/19 20:31 Dextrose (Dextrose 50%) 25 ml Q30M PRN IV Hypoglycemia 06/20/19 19:30 09/18/19 19:29 Dextrose (Dextrose 50%) 50 ml Q30M PRN IV Hypoglycemia 06/20/19 19:30 09/18/19 19:29 Dopamine HCl/ Dextrose 250 ml @ 0 mls/hr Q24H PRN IV For hypotension 06/13/19 08:15 09/11/19 08:14 Enoxaparin Sodium (Lovenox) 30 mg DAILY SUBQ 06/07/19 09:00 08/27/19 08:59 07/16/19 08:33 Epoetin Aftab (Epoetin Aftab(ESRD on dialysis)) 10,000 unit FRI-FRI-FRI SUBQ 06/07/19 21:00 08/31/19 20:59 07/14/19 20:43 Haloperidol Lactate 5 mg/ Dextrose 56 ml @ 224 mls/hr Q6H PRN IVPB Agitation 07/11/19 15:00 08/25/19 14:59 07/15/19 02:36 Hydralazine HCl (Apresoline) 10 mg Q4H PRN IV Blood pressure over 160 systol 06/07/19 10:15 09/05/19 10:14 Hydromorphone HCl (Dilaudid) 0.5 mg Q3H PRN IVP For Pain 07/11/19 15:00 07/18/19 14:59 07/15/19 20:31 Insulin Aspart (NovoLOG) EVERY 6 HOURS SUBQ 06/21/19 00:00 09/19/19 00:00 07/16/19 06:35 Lorazepam (Ativan 2mg/ml 1ml) 0.5 mg Q4H PRN IV For Anxiety 07/11/19 15:00 07/18/19 14:59 07/15/19 17:30 Metoclopramide HCl (Reglan) 5 mg Q8H PRN IVP Nausea & Vomiting 06/18/19 12:00 07/18/19 11:59 06/19/19 00:50 Midodrine (Pro-Amatine) 10 mg THREE TIMES A DAY NG 06/09/19 13:00 09/07/19 12:59 07/16/19 08:33 Norepinephrine Bitartrate 8 mg/ Dextrose 283 ml @ 0 mls/hr Q24H IV 06/23/19 23:00 07/23/19 22:59 07/14/19 13:10 Pantoprazole (Protonix) 40 mg DAILY IVP 06/19/19 09:00 07/19/19 08:59 07/16/19 08:31 Sevelamer Carbonate (Renvela) 2,400 mg Q6HR NG 07/14/19 12:00 10/12/19 13:59 07/16/19 06:35 Ted Leyva MD Jul 16, 2019 10:11
--- NOTE | 2019-07-16 10:35 | General Progress Note ---
Assessment/Plan Status: progressing, unchanged Assessment/Plan: 1. Diabetes. 2. Hypertension. 3. Coronary artery disease. 4. COPD. 5. Psychiatric disorder with schizophrenia. 6. History of hepatitis C. 7. HLP. 8. Chronic kidney disease, now with acute renal failure. 9. Anemia. 10. Hypothyroidism. 11. Spinal stenosis. 12. Constipation. 13. GERD. 14. COVID positive HD per nephrology fu labs icu care s/p PEG GTF monitor for residuals Subjective ROS Limited/Unobtainable: No Allergies: Coded Allergies: No Known Allergies (Unverified , 05/28/19) Objective Last 24 Hour Vital Signs Date Time Temp Pulse Resp B/P (MAP) Pulse Ox O2 Delivery O2 Flow Rate FiO2 07/16/19 08:02 100 07/16/19 08:00 113 07/16/19 08:00 Mechanical Ventilator 07/16/19 08:00 98.1 112 24 125/88 (100) 100 07/16/19 08:00 30 07/16/19 07:00 114 27 138/88 (105) 100 07/16/19 07:00 30 07/16/19 06:59 114 24 100 Mechanical Ventilator 30 116 27 30 30 07/16/19 06:00 114 32 131/82 (98) 100 07/16/19 05:00 113 28 88/64 (72) 100 07/16/19 04:00 Mechanical Ventilator 07/16/19 04:00 98.3 128 38 101/65 (77) 100 07/16/19 04:00 114 07/16/19 04:00 30 07/16/19 03:29 115 27 100 Mechanical Ventilator 30 117 26 30 07/16/19 03:00 111 25 116/71 (86) 100 07/16/19 02:00 116 22 150/96 (114) 100 07/16/19 01:00 117 26 140/92 (108) 100 07/16/19 00:00 98.6 115 26 127/83 (98) 100 07/16/19 00:00 Mechanical Ventilator 07/15/19 23:30 112 26 100 Mechanical Ventilator 30 114 27 30 07/15/19 23:00 112 27 118/87 (97) 100 07/15/19 23:00 124/80 07/15/19 22:00 108 26 102/63 (76) 100 07/15/19 21:06 97.4 07/15/19 21:00 116 24 124/80 (95) 100 07/15/19 20:00 97.4 126 40 130/87 (101) 100 07/15/19 20:00 30 07/15/19 20:00 Mechanical Ventilator 07/15/19 20:00 126 07/15/19 19:30 130 34 30 07/15/19 19:00 128 30 129/91 (104) 100 07/15/19 18:00 136 38 142/95 (111) 100 07/15/19 17:00 99.2 124 27 125/81 (96) 100 07/15/19 16:00 Mechanical Ventilator 07/15/19 16:00 121 07/15/19 16:00 122 32 121/71 (88) 100 07/15/19 15:00 126 22 147/95 (112) 100 07/15/19 14:50 127 30 100 Mechanical Ventilator 30 128 35 30 07/15/19 14:50 30 07/15/19 14:00 119 28 149/96 (113) 100 07/15/19 13:00 115 11 149/94 (112) 100 07/15/19 12:00 Mechanical Ventilator 07/15/19 12:00 119 07/15/19 12:00 30 07/15/19 12:00 99.6 115 33 116/78 (91) 100 07/15/19 11:08 119 35 100 Mechanical Ventilator 30 120 35 30 07/15/19 11:00 124 33 108/85 (93) 100 Intake and Output 07/15/19 07/16/19 18:59 06:59 Intake Total 415 ml 820 ml Output Total 1000 ml 0 ml Balance -585 ml 820 ml Free Water 30 ml 280 ml IV Total 0 ml Tube Feeding 385 ml 420 ml Other 120 ml Stool Total 0 ml Hemodialysis UF 1000 ml # Bowel Movements 2 Laboratory Tests 07/16/19 04:40: Phosphorus Level 6.0H 07/16/19 04:45: White Blood Count 12.7H, Red Blood Count 3.55L, Hemoglobin 10.2L, Hematocrit 31.9L, Mean Corpuscular Volume 90, Mean Corpuscular Hemoglobin 28.8, Mean Corpuscular Hemoglobin Concent 31.9L, Red Cell Distribution Width 15.8H, Platelet Count 380, Mean Platelet Volume 7.0, Neutrophils (%) (Auto) 82.8H, Lymphocytes (%) (Auto) 8.9L, Monocytes (%) (Auto) 6.4, Eosinophils (%) (Auto) 1.4, Basophils (%) (Auto) 0.5, Sodium Level 136, Potassium Level 4.1, Chloride Level 95L, Carbon Dioxide Level 20L, Anion Gap 21H, Blood Urea Nitrogen 60H, Creatinine 8.3H, Estimat Glomerular Filtration Rate 6.5, Glucose Level 189H, Calcium Level 9.6, Total Bilirubin 0.6, Aspartate Amino Transf (AST/SGOT) 30, Alanine Aminotransferase (ALT/SGPT) 9L, Alkaline Phosphatase 136H, Total Protein 9.5H, Albumin 2.9L, Globulin 6.6, Albumin/Globulin Ratio 0.4L Height (Feet): 6 Height (Inches): 1.00 Weight (Pounds): 182 General Appearance: no apparent distress EENT: normal ENT inspection Neck: supple Cardiovascular: normal rate Respiratory/Chest: decreased breath sounds Abdomen: normal bowel sounds, non tender, soft Extremities: non-tender Marito Ramires MD Jul 16, 2019 10:35
--- NOTE | 2019-07-16 11:14 | Cardiac Electrophysiology PN ---
Assessment/Plan Assessment/Plan 1. Elevated troponin. Low level and flat due to renal failure. On Aspirin. EF 60 %. 2. S/P Septic shock. DC midodrine as BP 140s now 3. ESRD, on HD per Dr. Cole. 4. COVID-19 positive pneumonia. On the Vent with 30% Fio2. S/P Tracheostomy 07/08/19 5. MRSA carrier. 6. COPD. 7. Anemia. 8. Dysphagia, S/P PEG 07/13/19 DW RN Subjective Subjective In ICU, on Vent with 30% Fio2. Off pressors . S/P Tracheostomy. S/P PEG 07/13/19 S/P Left IG HD catheter placement and HD Objective Last 24 Hour Vital Signs Date Time Temp Pulse Resp B/P (MAP) Pulse Ox O2 Delivery O2 Flow Rate FiO2 07/16/19 11:03 108 22 100 Mechanical Ventilator 30 109 21 30 07/16/19 11:00 108 23 135/86 (102) 100 07/16/19 10:00 109 21 140/84 (102) 100 07/16/19 09:00 111 22 137/82 (100) 100 07/16/19 08:02 100 07/16/19 08:00 113 07/16/19 08:00 Mechanical Ventilator 07/16/19 08:00 98.1 112 24 125/88 (100) 100 07/16/19 08:00 30 07/16/19 07:00 114 27 138/88 (105) 100 07/16/19 07:00 30 07/16/19 06:59 114 24 100 Mechanical Ventilator 30 116 27 30 30 07/16/19 06:00 114 32 131/82 (98) 100 07/16/19 05:00 113 28 88/64 (72) 100 07/16/19 04:00 Mechanical Ventilator 07/16/19 04:00 98.3 128 38 101/65 (77) 100 07/16/19 04:00 114 07/16/19 04:00 30 07/16/19 03:29 115 27 100 Mechanical Ventilator 30 117 26 30 07/16/19 03:00 111 25 116/71 (86) 100 07/16/19 02:00 116 22 150/96 (114) 100 07/16/19 01:00 117 26 140/92 (108) 100 07/16/19 00:00 98.6 115 26 127/83 (98) 100 07/16/19 00:00 Mechanical Ventilator 07/15/19 23:30 112 26 100 Mechanical Ventilator 30 114 27 30 07/15/19 23:00 112 27 118/87 (97) 100 07/15/19 23:00 124/80 07/15/19 22:00 108 26 102/63 (76) 100 07/15/19 21:06 97.4 07/15/19 21:00 116 24 124/80 (95) 100 07/15/19 20:00 97.4 126 40 130/87 (101) 100 07/15/19 20:00 30 07/15/19 20:00 Mechanical Ventilator 07/15/19 20:00 126 07/15/19 19:30 130 34 30 07/15/19 19:00 128 30 129/91 (104) 100 07/15/19 18:00 136 38 142/95 (111) 100 07/15/19 17:00 99.2 124 27 125/81 (96) 100 07/15/19 16:00 Mechanical Ventilator 07/15/19 16:00 121 07/15/19 16:00 122 32 121/71 (88) 100 07/15/19 15:00 126 22 147/95 (112) 100 07/15/19 14:50 127 30 100 Mechanical Ventilator 30 128 35 30 07/15/19 14:50 30 07/15/19 14:00 119 28 149/96 (113) 100 07/15/19 13:00 115 11 149/94 (112) 100 07/15/19 12:00 Mechanical Ventilator 07/15/19 12:00 119 07/15/19 12:00 30 07/15/19 12:00 99.6 115 33 116/78 (91) 100 Intake and Output 07/15/19 07/16/19 19:00 07:00 Intake Total 450 ml 820 ml Output Total 1000 ml 0 ml Balance -550 ml 820 ml Free Water 30 ml 280 ml Tube Feeding 420 ml 420 ml Other 120 ml Stool Total 0 ml Hemodialysis UF 1000 ml # Bowel Movements 2 Laboratory Tests Test 07/16/19 04:40 07/16/19 04:45 Phosphorus Level 6.0 MG/DL (2.5-4.9) H White Blood Count 12.7 K/UL (4.8-10.8) H Red Blood Count 3.55 M/UL (4.70-6.10) L Hemoglobin 10.2 G/DL (14.2-18.0) L Hematocrit 31.9 % (42.0-52.0) L Mean Corpuscular Volume 90 FL (80-99) Mean Corpuscular Hemoglobin 28.8 PG (27.0-31.0) Mean Corpuscular Hemoglobin Concent 31.9 G/DL (32.0-36.0) L Red Cell Distribution Width 15.8 % (11.6-14.8) H Platelet Count 380 K/UL (150-450) Mean Platelet Volume 7.0 FL (6.5-10.1) Neutrophils (%) (Auto) 82.8 % (45.0-75.0) H Lymphocytes (%) (Auto) 8.9 % (20.0-45.0) L Monocytes (%) (Auto) 6.4 % (1.0-10.0) Eosinophils (%) (Auto) 1.4 % (0.0-3.0) Basophils (%) (Auto) 0.5 % (0.0-2.0) Sodium Level 136 MMOL/L (136-145) Potassium Level 4.1 MMOL/L (3.5-5.1) Chloride Level 95 MMOL/L (98-107) L Carbon Dioxide Level 20 MMOL/L (21-32) L Anion Gap 21 mmol/L (5-15) H Blood Urea Nitrogen 60 mg/dL (7-18) H Creatinine 8.3 MG/DL (0.55-1.30) H Estimat Glomerular Filtration Rate 6.5 mL/min (>60) Glucose Level 189 MG/DL (74-106) H Calcium Level 9.6 MG/DL (8.5-10.1) Total Bilirubin 0.6 MG/DL (0.2-1.0) Aspartate Amino Transf (AST/SGOT) 30 U/L (15-37) Alanine Aminotransferase (ALT/SGPT) 9 U/L (12-78) L Alkaline Phosphatase 136 U/L (46-116) H Total Protein 9.5 G/DL (6.4-8.2) H Albumin 2.9 G/DL (3.4-5.0) L Globulin 6.6 g/dL Albumin/Globulin Ratio 0.4 (1.0-2.7) L Objective HEAD AND NECK: No JVD. Tracheostomy in place. Left IJ HD catheter now in place LUNGS: Decreased breath sounds. CARDIOVASCULAR: Regular S1 and S2. Tachycardic. ABDOMEN: Soft. PEG in place EXTREMITIES: No pitting edema. Left FV Gio Engle MD Jul 16, 2019 11:14
--- NOTE | 2019-07-16 11:43 | Hematology/Onc Progress Note ---
Assessment/Plan Assessment/Plan Assessment and Recs: # Anemia of chronic disease, likely related ot underlying kidney disease has COIVD19++++++ --> hgb trend 9-->8-->7.3-->7.9-->6.8->9.5-->10->8.3-->7.7-->7.1-->8.9->8.8->7.7 -->8.1 ->7.9-->7.7 -->8.2-->8.1 -->7.9-->8.5 -->9->9.2-->9.5-->10.7 -->9.8--> 10.2 --> transfuse as needed, hgb goal >7 --> no evidence of hemolysis --> peripheral smear has been reviewed --> epogen started 3 x a week ==>> transfuse 06/08, 06/15 # Leukocytosis likely related to suspected COVID-19 virus infection --> completed plaquenil --> trend smear as needed --> wbc trend: 4-->11-->14.5-->21-->26-->21->24--.28-->23-->19-->16.2-->21--> 11.2 -->12.5-->12.3-->12.4-->18.5-->18.5-->17->13 --> pulm is aware --> on abx cefepime/vanc->zosyn/vanc-->dom/vanc-->dom --> pressors as needed --> 06/27 covid 19++ # Thrombocytopenia/Lymphopenia --> likely related to covid19 --> plt 129k-->186k-->251-->285-->384 -->430-->539-->515-->447-->451 --> abx: dom/vanc # Respiratory failure with covid19+ --> s/p vent/trach --> weaning # Possible Pneumonia --> abx completed --> 07/13 cxr: Improved right lung infiltrates. # Cardiomegaly # Transaminitis with Elevated AST # COPD # Chronic Kidney Disease --> per renal hd --> s/p right femoral cath 07/02 # Hypertension # Dvt ppx lovenox # peg Appreciate consultation and ernesto Rn Subjective Allergies: Coded Allergies: No Known Allergies (Unverified , 05/28/19) All Systems: reviewed and negative except above Subjective 06/01 nv, extremely agitated, not allowing labs draws, no night sweats, cbc ordered 06/02 confused, restraints, on abx and plaquenil, hgb 7.9, nrb 15 L 06/03 is with nonrebreather, but not compliant, remains confused 06/05 no bleeding, labs noted, no major bleeding, otherwise comfortable 06/06 labs reviewed, no bleeding, meds noted, no night sweats, on levo and nonrebreather 06/07 labs noted, no bleeding, meds reviewed, no bleeding, wbc higher 06/08 to get 2 units prbc, no night sweats, meds reviewed 06/09 is on cefepime and vanc, labs noted, ernesto Rn, no bleeding 06/10 no major changes, labs reviewed, wbc 28k, on abx, cefepime 06/12 remains in icu, labs noted, no night sweats or bleeding 06/13 sluggish pupils, remains agitated, per psych, no bleding, on vent, wbc sitll high 06/14 still confused, remains on vent, with ng, running nepro, on pressors 06/15 icu, febrile, non verbal, hgb 7.1, blood pending, completed plaq 06/16 remains in the icu, nonverbal, plan for hd tomorrow, ernesto rn 06/17 in icu, on pressor, nonverbal, on abx, no bleeding 06/19 no bleeding, nonverbal in icu, hgb is 7.7 06/20 on zosyn, tube feeds, vent, labs noted, in icu, nv 06/21 gettng hd as per renal, in icu, nv, no bleeding, tfs 06/22 icu, cxr with slight improvement, cooling blanket, weaning today 06/23 wewaning, in icu, on vent, abx, and pressors as needed, labs noted 06/24 failed weaning, off abx, completed plaquenil, hgb 8.1 06/26 icu, weaning for this am, afebrile, hgb 8 06/27 in icu, remains comotose, weaning started on peep, no night sweats 06/28 weaning today, off abx, restraints, no distress, h/h stable 06/29 covid 19+, failed weaning, no blood transfusion needed 06/30 icu, on vent, labs reviewed, no distress 07/01 in icu, may need trach, remains on hd per renal, labs noted 07/02 s/p right fem cath, failed wean, no new orders, h/h stable 07/03 is somewhat more responsive, on abx, no bleeding, weaning and HD today 07/04 hd as per renal, weaning off vent, no bleeding today 07/05 obtunded, no bleding overnight, with hd for tomorrow noted, vanc 07/08 no events, remains with trach/vent, ernesto Rn, no bleeding, cbc is noted 07/09 no overnight events, peg for friday pending consent 07/10 off pressors, vent, restraints, labs reviewed 07/11 no acute events is on pressors, intubated, agitated still 07/12 is resting comfortably, no bleeding, emds reviewed and noted 07/13 icu, no events, trach, cxr reviewed, 07/14 is onv ent, tachypneic and tachycardic, labs noted 07/15 remains confused, intubated, ernesto Rn, no bleeding Objective Objective Current Medications Medications (Trade) Dose Ordered Sig/Anthony Route PRN Reason Start Time Stop Time Status Last Admin Dose Admin Acetaminophen (Tylenol) 650 mg Q4H PRN NG For Pain 07/11/19 08:00 08/10/19 07:59 07/13/19 22:31 Albuterol Sulfate (Proventil MDI) 2 puff Q4HRT INH 06/06/19 23:00 08/30/19 18:59 07/16/19 11:03 Chlorhexidine Gluconate (Michelle-Hex 2%) 1 applic DAILY@1999 TOPIC 06/07/19 20:00 09/05/19 19:59 07/15/19 20:31 Dextrose (Dextrose 50%) 25 ml Q30M PRN IV Hypoglycemia 06/20/19 19:30 09/18/19 19:29 Dextrose (Dextrose 50%) 50 ml Q30M PRN IV Hypoglycemia 06/20/19 19:30 09/18/19 19:29 Dopamine HCl/ Dextrose 250 ml @ 0 mls/hr Q24H PRN IV For hypotension 06/13/19 08:15 09/11/19 08:14 Enoxaparin Sodium (Lovenox) 30 mg DAILY SUBQ 06/07/19 09:00 08/27/19 08:59 07/16/19 08:33 Epoetin Aftab (Epoetin Aftab(ESRD on dialysis)) 10,000 unit FRI- SUBQ 06/07/19 21:00 08/31/19 20:59 07/14/19 20:43 Haloperidol Lactate 5 mg/ Dextrose 56 ml @ 224 mls/hr Q6H PRN IVPB Agitation 07/11/19 15:00 08/25/19 14:59 07/15/19 02:36 Hydralazine HCl (Apresoline) 10 mg Q4H PRN IV Blood pressure over 160 systol 06/07/19 10:15 09/05/19 10:14 Hydromorphone HCl (Dilaudid) 0.5 mg Q3H PRN IVP For Pain 07/11/19 15:00 07/18/19 14:59 07/15/19 20:31 Insulin Aspart (NovoLOG) EVERY 6 HOURS SUBQ 06/21/19 00:00 09/19/19 00:00 07/16/19 06:35 Lorazepam (Ativan 2mg/ml 1ml) 0.5 mg Q4H PRN IV For Anxiety 07/11/19 15:00 07/18/19 14:59 07/15/19 17:30 Metoclopramide HCl (Reglan) 5 mg Q8H PRN IVP Nausea & Vomiting 06/18/19 12:00 07/18/19 11:59 06/19/19 00:50 Norepinephrine Bitartrate 8 mg/ Dextrose 283 ml @ 0 mls/hr Q24H IV 06/23/19 23:00 07/23/19 22:59 07/14/19 13:10 Pantoprazole (Protonix) 40 mg DAILY IVP 06/19/19 09:00 07/19/19 08:59 07/16/19 08:31 Sevelamer Carbonate (Renvela) 2,400 mg Q6HR NG 07/14/19 12:00 10/12/19 13:59 07/16/19 06:35 Last 24 Hour Vital Signs Date Time Temp Pulse Resp B/P (MAP) Pulse Ox O2 Delivery O2 Flow Rate FiO2 07/16/19 11:03 108 22 100 Mechanical Ventilator 30 109 21 30 07/16/19 11:00 108 23 135/86 (102) 100 07/16/19 10:00 109 21 140/84 (102) 100 07/16/19 09:00 111 22 137/82 (100) 100 07/16/19 08:02 100 07/16/19 08:00 113 07/16/19 08:00 Mechanical Ventilator 07/16/19 08:00 98.1 112 24 125/88 (100) 100 07/16/19 08:00 30 07/16/19 07:00 114 27 138/88 (105) 100 07/16/19 07:00 30 07/16/19 06:59 114 24 100 Mechanical Ventilator 30 116 27 30 30 07/16/19 06:00 114 32 131/82 (98) 100 07/16/19 05:00 113 28 88/64 (72) 100 07/16/19 04:00 Mechanical Ventilator 07/16/19 04:00 98.3 128 38 101/65 (77) 100 07/16/19 04:00 114 07/16/19 04:00 30 07/16/19 03:29 115 27 100 Mechanical Ventilator 30 117 26 30 07/16/19 03:00 111 25 116/71 (86) 100 07/16/19 02:00 116 22 150/96 (114) 100 07/16/19 01:00 117 26 140/92 (108) 100 07/16/19 00:00 98.6 115 26 127/83 (98) 100 07/16/19 00:00 Mechanical Ventilator 07/15/19 23:30 112 26 100 Mechanical Ventilator 30 114 27 30 07/15/19 23:00 112 27 118/87 (97) 100 07/15/19 23:00 124/80 07/15/19 22:00 108 26 102/63 (76) 100 07/15/19 21:06 97.4 07/15/19 21:00 116 24 124/80 (95) 100 07/15/19 20:00 97.4 126 40 130/87 (101) 100 07/15/19 20:00 30 07/15/19 20:00 Mechanical Ventilator 07/15/19 20:00 126 07/15/19 19:30 130 34 30 07/15/19 19:00 128 30 129/91 (104) 100 07/15/19 18:00 136 38 142/95 (111) 100 07/15/19 17:00 99.2 124 27 125/81 (96) 100 07/15/19 16:00 Mechanical Ventilator 07/15/19 16:00 121 07/15/19 16:00 122 32 121/71 (88) 100 07/15/19 15:00 126 22 147/95 (112) 100 07/15/19 14:50 127 30 100 Mechanical Ventilator 30 128 35 30 07/15/19 14:50 30 07/15/19 14:00 119 28 149/96 (113) 100 07/15/19 13:00 115 11 149/94 (112) 100 07/15/19 12:00 Mechanical Ventilator 07/15/19 12:00 119 07/15/19 12:00 30 07/15/19 12:00 99.6 115 33 116/78 (91) 100 07/15/19 11:08 119 35 100 Mechanical Ventilator 30 120 35 30 07/15/19 11:00 124 33 108/85 (93) 100 07/15/19 10:00 118 33 119/76 (90) 100 07/15/19 09:00 110 34 149/91 (110) 100 07/15/19 08:00 30 07/15/19 08:00 Mechanical Ventilator 07/15/19 08:00 106 07/15/19 08:00 98.6 104 33 114/72 (86) 100 07/15/19 08:00 30 07/15/19 07:47 102 30 100 Mechanical Ventilator 30 102 32 30 30 07/15/19 07:46 100 07/15/19 07:00 26 103/65 Mechanical Ventilator 30 07/15/19 07:00 103/65 07/15/19 07:00 100 23 102/65 (77) 100 07/15/19 06:00 93 26 102/69 (80) 100 07/15/19 06:00 26 102/64 Mechanical Ventilator 30 07/15/19 06:00 26 102/64 Mechanical Ventilator 30 07/15/19 06:00 102/64 07/15/19 05:45 101 26 92/56 (68) 100 07/15/19 05:30 96 26 110/69 (83) 100 07/15/19 05:00 98 24 90/53 (65) 100 07/15/19 05:00 27 90/53 Mechanical Ventilator 30 07/15/19 05:00 90/53 07/15/19 04:45 101 24 112/65 (81) 100 07/15/19 04:30 105 24 90/61 (71) 100 07/15/19 04:15 104 26 73/55 (61) 100 07/15/19 04:00 Mechanical Ventilator 07/15/19 04:00 30 07/15/19 04:00 92 07/15/19 04:00 26 73/55 Mechanical Ventilator 30 07/15/19 04:00 76/56 07/15/19 04:00 98.5 106 23 76/52 (60) 100 07/15/19 03:30 106 31 100 Mechanical Ventilator 30 107 32 30 07/15/19 03:30 106 26 112/64 (80) 100 07/15/19 03:00 92 22 131/74 (93) 100 07/15/19 03:00 26 131/73 Mechanical Ventilator 07/15/19 03:00 131/73 07/15/19 02:45 80 25 115/76 (89) 100 07/15/19 02:30 82 24 112/73 (86) 100 07/15/19 02:15 85 27 108/71 (83) 100 07/15/19 02:00 88 23 113/71 (85) 100 07/15/19 02:00 24 113/71 Mechanical Ventilator 30 07/15/19 02:00 113/71 07/15/19 01:45 86 25 131/79 (96) 100 07/15/19 01:30 83 25 105/69 (81) 100 07/15/19 01:15 82 20 116/74 (88) 100 07/15/19 01:00 74 26 140/78 (98) 100 07/15/19 01:00 26 140/78 Mechanical Ventilator 30 6/4/20 01:00 140/78 07/15/19 00:30 77 26 115/77 (90) 100 07/15/19 00:00 86 07/15/19 00:00 26 118/73 Mechanical Ventilator 30 07/15/19 00:00 118/73 07/15/19 00:00 Mechanical Ventilator 07/15/19 00:00 30 07/15/19 00:00 98.3 86 26 134/84 (101) 100 07/14/19 23:30 78 25 114/69 (84) 100 07/14/19 23:30 78 26 100 Mechanical Ventilator 30 80 26 30 07/14/19 23:00 80 22 116/75 (89) 100 07/14/19 23:00 25 116/54 Mechanical Ventilator 30 07/14/19 23:00 116/75 07/14/19 22:30 78 24 114/69 (84) 100 07/14/19 22:00 24 120/78 Mechanical Ventilator 30 07/14/19 22:00 120/78 07/14/19 22:00 74 22 120/78 (92) 100 07/14/19 21:45 76 24 102/68 (79) 100 07/14/19 21:30 77 22 97/68 (78) 100 07/14/19 21:15 82 26 105/69 (81) 100 07/14/19 21:00 26 118/71 Mechanical Ventilator 30 07/14/19 21:00 118/71 07/14/19 21:00 84 22 118/71 (87) 100 07/14/19 20:45 85 10 94/62 (73) 100 07/14/19 20:30 81 21 113/72 (86) 100 07/14/19 20:00 98.6 83 24 128/73 (91) 100 07/14/19 20:00 30 07/14/19 20:00 89 07/14/19 20:00 26 128/73 Mechanical Ventilator 30 07/14/19 20:00 128/73 07/14/19 20:00 Mechanical Ventilator 07/14/19 19:30 82 26 100 Mechanical Ventilator 30 86 28 30 07/14/19 19:30 81 20 119/76 (90) 100 07/14/19 19:00 20 118/78 Mechanical Ventilator 30 07/14/19 19:00 118/78 07/14/19 19:00 78 26 112/69 (83) 100 07/14/19 18:00 26 115/69 Mechanical Ventilator 30 07/14/19 18:00 89/60 07/14/19 18:00 76 25 115/69 (84) 100 07/14/19 17:00 93 23 98/59 (72) 100 07/14/19 17:00 26 98/59 Mechanical Ventilator 30 07/14/19 16:30 94 26 98/71 (80) 100 07/14/19 16:00 97 07/14/19 16:00 Mechanical Ventilator 07/14/19 16:00 20 111/65 Mechanical Ventilator 30 07/14/19 16:00 30 07/14/19 16:00 97.9 81 9 111/65 (80) 100 07/14/19 15:30 80 17 112/75 (87) 100 07/14/19 15:25 88 26 100 Mechanical Ventilator 30 88 26 30 07/14/19 15:00 17 123/79 Mechanical Ventilator 30 07/14/19 15:00 86 5 123/79 (94) 100 07/14/19 14:30 93 22 143/87 (105) 100 07/14/19 14:00 98 20 125/86 (99) 100 07/14/19 14:00 20 125/86 Mechanical Ventilator 30 07/14/19 14:00 125/86 07/14/19 13:10 98/60 07/14/19 13:00 20 144/86 Mechanical Ventilator 30 07/14/19 13:00 97 20 150/80 (103) 100 07/14/19 12:30 85 21 154/89 (110) 100 07/14/19 12:00 80 07/14/19 12:00 25 137/75 Mechanical Ventilator 30 07/14/19 12:00 30 07/14/19 12:00 98.6 82 23 137/75 (95) 100 07/14/19 12:00 Mechanical Ventilator Intake and Output 07/15/19 07/16/19 19:00 07:00 Intake Total 450 ml 820 ml Output Total 1000 ml 0 ml Balance -550 ml 820 ml Free Water 30 ml 280 ml Tube Feeding 420 ml 420 ml Other 120 ml Stool Total 0 ml Hemodialysis UF 1000 ml # Bowel Movements 2 Labs Test 07/14/19 04:00 07/15/19 04:11 07/16/19 04:40 07/16/19 04:45 White Blood Count 16.6 K/UL (4.8-10.8) 12.4 K/UL (4.8-10.8) 12.7 K/UL (4.8-10.8) Red Blood Count 3.36 M/UL (4.70-6.10) 3.47 M/UL (4.70-6.10) 3.55 M/UL (4.70-6.10) Hemoglobin 9.8 G/DL (14.2-18.0) 10.0 G/DL (14.2-18.0) 10.2 G/DL (14.2-18.0) Hematocrit 30.5 % (42.0-52.0) 31.2 % (42.0-52.0) 31.9 % (42.0-52.0) Mean Corpuscular Volume 91 FL (80-99) 90 FL (80-99) 90 FL (80-99) Mean Corpuscular Hemoglobin 29.1 PG (27.0-31.0) 28.9 PG (27.0-31.0) 28.8 PG (27.0-31.0) Mean Corpuscular Hemoglobin Concent 32.1 G/DL (32.0-36.0) 32.1 G/DL (32.0-36.0) 31.9 G/DL (32.0-36.0) Red Cell Distribution Width 15.7 % (11.6-14.8) 15.5 % (11.6-14.8) 15.8 % (11.6-14.8) Platelet Count 451 K/UL (150-450) 358 K/UL (150-450) 380 K/UL (150-450) Mean Platelet Volume 6.8 FL (6.5-10.1) 6.5 FL (6.5-10.1) 7.0 FL (6.5-10.1) Neutrophils (%) (Auto) 80.5 % (45.0-75.0) 78.8 % (45.0-75.0) 82.8 % (45.0-75.0) Lymphocytes (%) (Auto) 8.8 % (20.0-45.0) 9.7 % (20.0-45.0) 8.9 % (20.0-45.0) Monocytes (%) (Auto) 8.0 % (1.0-10.0) 6.7 % (1.0-10.0) 6.4 % (1.0-10.0) Eosinophils (%) (Auto) 1.8 % (0.0-3.0) 3.8 % (0.0-3.0) 1.4 % (0.0-3.0) Basophils (%) (Auto) 0.9 % (0.0-2.0) 0.9 % (0.0-2.0) 0.5 % (0.0-2.0) Sodium Level 140 MMOL/L (136-145) 136 MMOL/L (136-145) 136 MMOL/L (136-145) Potassium Level 4.5 MMOL/L (3.5-5.1) 4.5 MMOL/L (3.5-5.1) 4.1 MMOL/L (3.5-5.1) Chloride Level 96 MMOL/L (98-107) 92 MMOL/L (98-107) 95 MMOL/L (98-107) Carbon Dioxide Level 26 MMOL/L (21-32) 23 MMOL/L (21-32) 20 MMOL/L (21-32) Anion Gap 18 mmol/L (5-15) 21 mmol/L (5-15) 21 mmol/L (5-15) Blood Urea Nitrogen 82 mg/dL (7-18) 85 mg/dL (7-18) 60 mg/dL (7-18) Creatinine 10.7 MG/DL (0.55-1.30) 10.9 MG/DL (0.55-1.30) 8.3 MG/DL (0.55-1.30) Estimat Glomerular Filtration Rate 4.9 mL/min (>60) 4.7 mL/min (>60) 6.5 mL/min (>60) Glucose Level 261 MG/DL (74-106) 168 MG/DL (74-106) 189 MG/DL (74-106) Calcium Level 10.0 MG/DL (8.5-10.1) 9.5 MG/DL (8.5-10.1) 9.6 MG/DL (8.5-10.1) Phosphorus Level 6.7 MG/DL (2.5-4.9) 7.0 MG/DL (2.5-4.9) 6.0 MG/DL (2.5-4.9) Magnesium Level 3.1 MG/DL (1.8-2.4) 2.7 MG/DL (1.8-2.4) Total Bilirubin 0.6 MG/DL (0.2-1.0) 0.5 MG/DL (0.2-1.0) 0.6 MG/DL (0.2-1.0) Direct Bilirubin 0.2 MG/DL (0.0-0.3) Aspartate Amino Transf (AST/SGOT) 30 U/L (15-37) 22 U/L (15-37) 30 U/L (15-37) Alanine Aminotransferase (ALT/SGPT) 17 U/L (12-78) 13 U/L (12-78) 9 U/L (12-78) Alkaline Phosphatase 105 U/L (46-116) 107 U/L (46-116) 136 U/L (46-116) Total Protein 10.1 G/DL (6.4-8.2) 9.5 G/DL (6.4-8.2) 9.5 G/DL (6.4-8.2) Albumin 3.3 G/DL (3.4-5.0) 2.9 G/DL (3.4-5.0) 2.9 G/DL (3.4-5.0) Uric Acid 9.3 MG/DL (2.6-7.2) Troponin I 0.005 ng/mL (0.000-0.056) C-Reactive Protein, Quantitative 8.2 mg/dL (0.00-0.90) Pro-B-Type Natriuretic Peptide 71385 pg/mL (0-125) Globulin 6.6 g/dL 6.6 g/dL Albumin/Globulin Ratio 0.4 (1.0-2.7) 0.4 (1.0-2.7) Height (Feet): 6 Height (Inches): 1.00 Weight (Pounds): 182 Objective General: nv, confused, sedated Heent: bilateral eye normal inspection, bilateral eye PERRL ++Ng Respiratory: normal breath sounds, no respiratory distress, intubated/vent +++ trach+++ Cardiovascular: regular rate, rhythm, no edema Gastrointestinal: normal inspection, soft, non-distended, peg+ Rectal: deferred Musculoskeletal: normal range of motion, non-tender, R fem cath++ Neurologic: alert, motor strength/tone normal, sensory intact, responsive, speech normal Skin: Decubitus/Ulcer - See RN skin exam. : jamaal+ Greg Cabral MD Jul 16, 2019 11:43
--- NOTE | 2019-07-16 12:40 | Nephrology Progress Note ---
Assessment/Plan Problem List: (1) CASSANDRA (acute kidney injury) (2) Anemia in chronic kidney disease (CKD) (3) HTN (hypertension) (4) COVID-19 Assessment Acute renal failure most likely superimposed on chronic kidney disease Suspected COVID-19 virus infection Possible Pneumonia, lymphopenia, elevated AST Cardiomegaly, possible CHF COPD Hypertension Anemia, most likely related to chronic kidney disease Plan July 15: Dialyzed yesterday, due for dialysis tomorrow. Labs and medication list reviewed. Continue per consultants. Patient remains full code. COVID-19 detected again. July 14: Patient currently on dialysis. This is continuation of dialysis from yesterday as yesterday's dialysis was cut short due to catheter malfunction. Labs and medication reviewed. Continue per consultants. July 13: Patient currently on hemodialysis. The dialysis catheter which is a intrajugular Kamlesh has poor flow. Will try TPA. Continue per consultants. July 12: Due for PEG today. Due for dialysis tomorrow. Continue per consultants. Discussed with RN. July 11: Plan for dialysis today. Discussed with RN. Data reviewed. July 10: Plan for dialysis tomorrow July 11. Waiting for consent to proceed with PEG. Continue per consultants. Medication reviewed. Labs reviewed. Discussed with RN. July 09: Dialyzed yesterday. Labs reviewed. Medication reviewed. Next hemodialysis July 11. July 08: Patient has tracheostomy now. Connected to ventilator. Due for dialysis today. Continue per consultants. Discussed with SHANIQUE Romero. July 07: Patient is due for tracheostomy today. Patient was last dialyzed July 05. Will order dialysis for tomorrow. July 06: Patient is intubated on ventilator however the plan is to extubate today. Patient was dialysis yesterday July 05. The dialysis time was cut short due to patient's respiratory distress. Only 1 L was removed during dialysis yesterday. Today's lab reviewed. Continue per consultants. Will arrange for dialysis as needed. July 05: Patient due for dialysis today. Remains intubated. Will schedule permacath placement in a.m. blood cultures on July 04 are negative. July 04: Patient was dialyzed yesterday. Due for dialysis tomorrow. Continues to be intubated. After tomorrow's dialysis will order a permacath. July 03: Dialysis is about to be started now Continues to be intubated Will plan to remove the femoral dialysis catheter and exchanged for a new temporary catheter per ID recommendation We will check surveillance blood culture tomorrow July 02: Patient was dialyzed yesterday and due for dialysis tomorrow Stable from renal standpoint W on dialysis Continue per consultants, weaning....... etc. July 01: Dialysis today Other status unchanged June 30: Due for dialysis tomorrow Remains intubated on ventilator Labs and medication reviewed Discussed with RN Stable from renal standpoint of view June 29: Dialyzed yesterday Due for dialysis tomorrow Stable from renal standpoint to view Keeps failing weaning process June 28: Patient due for dialysis today Stable from renal standpoint to view Continue per consultants June 27: Labs reviewed Due due for dialysis June 28 Discussed with SHANIQUE Silverman per consultants Remains intubated on ventilator June 26 Labs reviewed Dialyzed yesterday Started on weaning today Continue to monitor renal parameters June 25: On dialysis now Potassium supplement implemented Continue per consultants Next dialysis June 27June 15: Status unchanged Dialyzed yesterday will dialyze again tomorrow Potassium supplements given Discussed with RN June 14: Due dialysis today Status: Remains intubated on ventilator June 13: Status unchanged Dialyzed yesterday and duefordialysistomorrow Serum sodium stable today June 21 Remains intubated on ventilator Due dialysis today Emphasized high sodium bath for dialysis June 20: Remains intubated on ventilator Dialyzed June 19 next dialysis June 21 Serum sodium 128, will give 250 cc 3% saline Remains full code Discussed with RN Iron panel ordered June 19: Discussed with RN. Patient due for dialysis today. Continue pulmonary support. Remains full code. June 18: Patient dialyzed yesterday June 17 Serum sodium improved but still low Arrange for dialysis tomorrow June 19 Continue per consultants June 8: Due for dialysis today Today's lab reviewed, low serum sodium noted, Emphasized on high sodium bath to dialysis nurse Discussed with SHANIQUE Yuen June 16: Dialyzed yesterday Remains intubated Labs reviewed, serum sodium 131 Plan to dialyze tomorrow June 17 with high sodium bath Discussed with SHANIQUE Yuen June 6: Due for dialysis today Labs reviewed Discussed with RN Transfuse 1 unit of packed RBCs today for low hemoglobin of 7.1 June 5: Blood pressure well maintained Receive dialysis June 13 next hemodialysis June 15June 4: Discussed with RN in ICU Patient did not receive proper dialysis yesterday due to dialysis catheter malfunction Catheter to be adjusted today and dialyzed to be resumed today Continue per consultants Positive for COVID 28 June 2: Patient now intubated on mechanical ventilation Discussed with SHANIQUE Yuen, today June 12 Patient received dialysis yesterday June 10 next hemodialysis June 12 Blood pressure better maintained Today's labs reviewed Continue per consultants Previously patient received dialysis last evening June 05, next dialysis June 07 which was incomplete due to patient's hypotension Will start on midodrine for blood pressure support. Meanwhile continue other pressors as needed Previously Patient is doing poorly, septic, white blood cells are rising, Hypotension somewhat improved We will keep n.p.o. , NG tube for medications, and change medication to IV as needed Patient remains full code Monitor vancomycin level Previously: Patient pulled out his femoral catheter yesterday June 03 which was reinserted by Dr. Mast Patient scheduled for dialysis again June 04, which again was not done due to dialysis nurse citing catheter malfunction Meanwhile continue management per ID, pulmonary , and psych. Meanwhile white blood cell count is rising. Patient blood pressure borderline low. Will check ABG Previously May 31 : I believe patient need dialysis treatment He however needs to competency assessment if can make decisions or not I will communicate with Dr. Mulligan Previously: Per pulmonary and ID advice Adjust blood pressure medication Renal diet Anemia work-up 2D echocardiogram refused Kidney ultrasound refused Jules catheter Urine studies Per orders Subjective ROS Limited/Unobtainable: Yes Objective Objective Last 24 Hour Vital Signs Date Time Temp Pulse Resp B/P (MAP) Pulse Ox O2 Delivery O2 Flow Rate FiO2 07/16/19 11:03 108 22 100 Mechanical Ventilator 30 109 21 30 07/16/19 11:00 108 23 135/86 (102) 100 07/16/19 10:00 109 21 140/84 (102) 100 07/16/19 09:00 111 22 137/82 (100) 100 07/16/19 08:02 100 07/16/19 08:00 113 07/16/19 08:00 Mechanical Ventilator 07/16/19 08:00 98.1 112 24 125/88 (100) 100 07/16/19 08:00 30 07/16/19 07:00 114 27 138/88 (105) 100 07/16/19 07:00 30 07/16/19 06:59 114 24 100 Mechanical Ventilator 30 116 27 30 30 07/16/19 06:00 114 32 131/82 (98) 100 07/16/19 05:00 113 28 88/64 (72) 100 07/16/19 04:00 Mechanical Ventilator 07/16/19 04:00 98.3 128 38 101/65 (77) 100 07/16/19 04:00 114 07/16/19 04:00 30 07/16/19 03:29 115 27 100 Mechanical Ventilator 30 117 26 30 07/16/19 03:00 111 25 116/71 (86) 100 07/16/19 02:00 116 22 150/96 (114) 100 07/16/19 01:00 117 26 140/92 (108) 100 07/16/19 00:00 98.6 115 26 127/83 (98) 100 07/16/19 00:00 Mechanical Ventilator 07/15/19 23:30 112 26 100 Mechanical Ventilator 30 114 27 30 07/15/19 23:00 112 27 118/87 (97) 100 07/15/19 23:00 124/80 07/15/19 22:00 108 26 102/63 (76) 100 07/15/19 21:06 97.4 07/15/19 21:00 116 24 124/80 (95) 100 07/15/19 20:00 97.4 126 40 130/87 (101) 100 07/15/19 20:00 30 07/15/19 20:00 Mechanical Ventilator 07/15/19 20:00 126 07/15/19 19:30 130 34 30 07/15/19 19:00 128 30 129/91 (104) 100 07/15/19 18:00 136 38 142/95 (111) 100 07/15/19 17:00 99.2 124 27 125/81 (96) 100 07/15/19 16:00 Mechanical Ventilator 07/15/19 16:00 121 07/15/19 16:00 122 32 121/71 (88) 100 07/15/19 15:00 126 22 147/95 (112) 100 07/15/19 14:50 127 30 100 Mechanical Ventilator 30 128 35 30 07/15/19 14:50 30 07/15/19 14:00 119 28 149/96 (113) 100 07/15/19 13:00 115 11 149/94 (112) 100 Intake and Output 07/15/19 07/16/19 19:00 07:00 Intake Total 450 ml 820 ml Output Total 1000 ml 0 ml Balance -550 ml 820 ml Free Water 30 ml 280 ml Tube Feeding 420 ml 420 ml Other 120 ml Stool Total 0 ml Hemodialysis UF 1000 ml # Bowel Movements 2 Laboratory Tests 07/16/19 04:40: Phosphorus Level 6.0H 07/16/19 04:45: White Blood Count 12.7H, Red Blood Count 3.55L, Hemoglobin 10.2L, Hematocrit 31.9L, Mean Corpuscular Volume 90, Mean Corpuscular Hemoglobin 28.8, Mean Corpuscular Hemoglobin Concent 31.9L, Red Cell Distribution Width 15.8H, Platelet Count 380, Mean Platelet Volume 7.0, Neutrophils (%) (Auto) 82.8H, Lymphocytes (%) (Auto) 8.9L, Monocytes (%) (Auto) 6.4, Eosinophils (%) (Auto) 1.4, Basophils (%) (Auto) 0.5, Sodium Level 136, Potassium Level 4.1, Chloride Level 95L, Carbon Dioxide Level 20L, Anion Gap 21H, Blood Urea Nitrogen 60H, Creatinine 8.3H, Estimat Glomerular Filtration Rate 6.5, Glucose Level 189H, Calcium Level 9.6, Total Bilirubin 0.6, Aspartate Amino Transf (AST/SGOT) 30, Alanine Aminotransferase (ALT/SGPT) 9L, Alkaline Phosphatase 136H, Total Protein 9.5H, Albumin 2.9L, Globulin 6.6, Albumin/Globulin Ratio 0.4L Height (Feet): 6 Height (Inches): 1.00 Weight (Pounds): 182 General Appearance: no apparent distress EENT: other - Trached and vent Cardiovascular: tachycardia Respiratory/Chest: decreased breath sounds Abdomen: other Objective No change Mic Cole MD Jul 16, 2019 12:40
[2019-07-16] MEDS ORDERED: NS Irrig 1000ml ONE (14:09)
--- NOTE | 2019-07-16 15:07 | Surgery Progress Note ---
Surgery Progress Note Subjective Procedure Performed Right femoral temporary hemodialysis catheter removal Additional Comments labs noted ill appearing overall Objective Last 24 Hour Vital Signs Date Time Temp Pulse Resp B/P (MAP) Pulse Ox O2 Delivery O2 Flow Rate FiO2 07/16/19 14:00 112 20 150/82 (104) 100 07/16/19 13:00 113 21 152/95 (114) 100 07/16/19 12:00 97.6 113 24 147/91 (109) 100 07/16/19 12:00 110 07/16/19 12:00 Mechanical Ventilator 07/16/19 12:00 30 07/16/19 11:03 108 22 100 Mechanical Ventilator 30 109 21 30 07/16/19 11:00 108 23 135/86 (102) 100 07/16/19 10:00 109 21 140/84 (102) 100 07/16/19 09:00 111 22 137/82 (100) 100 07/16/19 08:02 100 07/16/19 08:00 113 07/16/19 08:00 Mechanical Ventilator 07/16/19 08:00 98.1 112 24 125/88 (100) 100 07/16/19 08:00 30 07/16/19 07:00 114 27 138/88 (105) 100 07/16/19 07:00 30 07/16/19 06:59 114 24 100 Mechanical Ventilator 30 116 27 30 30 07/16/19 06:00 114 32 131/82 (98) 100 07/16/19 05:00 113 28 88/64 (72) 100 07/16/19 04:00 Mechanical Ventilator 07/16/19 04:00 98.3 128 38 101/65 (77) 100 07/16/19 04:00 114 07/16/19 04:00 30 07/16/19 03:29 115 27 100 Mechanical Ventilator 30 117 26 30 07/16/19 03:00 111 25 116/71 (86) 100 07/16/19 02:00 116 22 150/96 (114) 100 07/16/19 01:00 117 26 140/92 (108) 100 07/16/19 00:00 98.6 115 26 127/83 (98) 100 07/16/19 00:00 Mechanical Ventilator 07/15/19 23:30 112 26 100 Mechanical Ventilator 30 114 27 30 07/15/19 23:00 112 27 118/87 (97) 100 07/15/19 23:00 124/80 07/15/19 22:00 108 26 102/63 (76) 100 07/15/19 21:06 97.4 07/15/19 21:00 116 24 124/80 (95) 100 07/15/19 20:00 97.4 126 40 130/87 (101) 100 07/15/19 20:00 30 07/15/19 20:00 Mechanical Ventilator 07/15/19 20:00 126 07/15/19 19:30 130 34 30 07/15/19 19:00 128 30 129/91 (104) 100 07/15/19 18:00 136 38 142/95 (111) 100 07/15/19 17:00 99.2 124 27 125/81 (96) 100 07/15/19 16:00 Mechanical Ventilator 07/15/19 16:00 121 07/15/19 16:00 122 32 121/71 (88) 100 I&O Intake and Output 07/15/19 07/16/19 19:00 07:00 Intake Total 450 ml 820 ml Output Total 1000 ml 0 ml Balance -550 ml 820 ml Free Water 30 ml 280 ml Tube Feeding 420 ml 420 ml Other 120 ml Stool Total 0 ml Hemodialysis UF 1000 ml # Bowel Movements 2 Dressing: other Wound: other Drains: other Cardiovascular: RSR Respiratory: decreased breath sounds Abdomen: soft, present bowel sounds Extremities: no cyanosis Laboratory Tests Test 07/16/19 04:40 07/16/19 04:45 Phosphorus Level 6.0 MG/DL (2.5-4.9) H White Blood Count 12.7 K/UL (4.8-10.8) H Red Blood Count 3.55 M/UL (4.70-6.10) L Hemoglobin 10.2 G/DL (14.2-18.0) L Hematocrit 31.9 % (42.0-52.0) L Mean Corpuscular Volume 90 FL (80-99) Mean Corpuscular Hemoglobin 28.8 PG (27.0-31.0) Mean Corpuscular Hemoglobin Concent 31.9 G/DL (32.0-36.0) L Red Cell Distribution Width 15.8 % (11.6-14.8) H Platelet Count 380 K/UL (150-450) Mean Platelet Volume 7.0 FL (6.5-10.1) Neutrophils (%) (Auto) 82.8 % (45.0-75.0) H Lymphocytes (%) (Auto) 8.9 % (20.0-45.0) L Monocytes (%) (Auto) 6.4 % (1.0-10.0) Eosinophils (%) (Auto) 1.4 % (0.0-3.0) Basophils (%) (Auto) 0.5 % (0.0-2.0) Sodium Level 136 MMOL/L (136-145) Potassium Level 4.1 MMOL/L (3.5-5.1) Chloride Level 95 MMOL/L (98-107) L Carbon Dioxide Level 20 MMOL/L (21-32) L Anion Gap 21 mmol/L (5-15) H Blood Urea Nitrogen 60 mg/dL (7-18) H Creatinine 8.3 MG/DL (0.55-1.30) H Estimat Glomerular Filtration Rate 6.5 mL/min (>60) Glucose Level 189 MG/DL (74-106) H Calcium Level 9.6 MG/DL (8.5-10.1) Total Bilirubin 0.6 MG/DL (0.2-1.0) Aspartate Amino Transf (AST/SGOT) 30 U/L (15-37) Alanine Aminotransferase (ALT/SGPT) 9 U/L (12-78) L Alkaline Phosphatase 136 U/L (46-116) H Total Protein 9.5 G/DL (6.4-8.2) H Albumin 2.9 G/DL (3.4-5.0) L Globulin 6.6 g/dL Albumin/Globulin Ratio 0.4 (1.0-2.7) L Plan Problems: (1) Suspected COVID-19 virus infection (2) HTN (hypertension) (3) CASSANDRA (acute kidney injury) Assessment & Plan: Needs urgent HD needs access patient okay and consented see note will follow with recs new line placed discussed with team and nephrology HD line functional when checked has TPA now please use appropriately Cathflo used again this flow during dialysis on 430 was low. Will monitor may need line change / plan for HD as per renal may need to take fluid off with HD edema anasarca dressings saturated and changed will monitor cont with HD IJ left line placed for HD given extent of prior line in place. leukocytosis blood cx negative may need to change out line (4) Anemia in chronic kidney disease (CKD) (5) Anemia (6) Renal failure (7) Suspected COVID-19 virus infection Assessment & Plan: Pt deconditioned and despite all skin preventions Pt noted to have developed several pressure injuries. . Stable dry eschar noted to clefts of R and L ears. No erythema noted . DTPI noted to L trochanter. Base of injury is maroon in colour with marginal erythema along borders. Partially opened DTPI Sacrum, R and L Buttocks. Base of wound is maroon with two small open wounds L sacrum and L buttocks. Pt has an APM/MOMO Mattress overlay and is being positioned with pillows as per tolerance and within protocols. worsening despite medical efforts will cont to provide therapy Tx.Plan: Apply Cavilon Skin Barrier to both ears Daily and prn. Apply Moisture Barrier Paste to Sacrum,R and L Buttocks. Cover with Optifoam drsgs. Change every 3 days and PRN. Apply Cavilon Skin Barrier to R and L trochanter. Cover each site with Optifoam drsgs.Change every 7 days and PRN. Apply Cavilon Skin Barrier to both heels. Cover each heel with Optifoam drsg. Change every 7 days and prn. Off-load heels with pillow. Reposition at least every 2hours or as tolerated. APM/MOMO Mattress overlay. (8) COVID-19 Assessment & Plan: COVID + c diff negative febrile leukocytosis renal insufficiency see above cont resp care Rx as per ID worsening on vent support now cxr noted on pressors prognosis guarded repeat covid ++ weaning vent and pressors off slowly showing improvement slowly recovering will need trach as unable to wean vent safely [facility] s/p trach pending peg Yaniv Mast Jul 16, 2019 15:07
--- NOTE | 2019-07-16 17:20 | General Progress Note ---
Assessment/Plan Problem List: (1) HTN (hypertension) ICD Codes: I10 - Essential (primary) hypertension SNOMED: 55258660 (2) CASSANDRA (acute kidney injury) ICD Codes: N17.9 - Acute kidney failure, unspecified SNOMED: 8521166, 56464658 (3) Anemia in chronic kidney disease (CKD) ICD Codes: N18.9 - Chronic kidney disease, unspecified; D63.1 - Anemia in chronic kidney disease SNOMED: 132096053 (4) Renal failure ICD Codes: N19 - Unspecified kidney failure SNOMED: 15584183 (5) Respiratory failure requiring intubation ICD Codes: J96.90 - Respiratory failure, unspecified, unspecified whether with hypoxia or hypercapnia; A41.89 - Other specified sepsis SNOMED: 097129997, 782133711 (6) Pneumonia due to COVID-19 virus ICD Codes: U07.1 - COVID-19; J12.89 - Other viral pneumonia SNOMED: 749135959, 054024570 (7) Sepsis due to severe acute respiratory syndrome coronavirus 2 (SARS-CoV-2) ICD Codes: U07.1 - COVID-19; A41.89 - Other specified sepsis SNOMED: 735549484, 403536106 Status: progressing, unchanged Assessment/Plan: trach and peg malnutriton no fever check lytes poor prognosis prn pressor still getting diaylsis s/p covid pna continue supportive rx Subjective ROS Limited/Unobtainable: Yes Allergies: Coded Allergies: No Known Allergies (Unverified , 05/28/19) Objective Last 24 Hour Vital Signs Date Time Temp Pulse Resp B/P (MAP) Pulse Ox O2 Delivery O2 Flow Rate FiO2 07/16/19 15:23 115 27 100 Mechanical Ventilator 30 115 29 30 07/16/19 15:00 117 24 135/99 (111) 100 07/16/19 14:00 112 20 150/82 (104) 100 07/16/19 13:00 113 21 152/95 (114) 100 07/16/19 12:00 97.6 113 24 147/91 (109) 100 07/16/19 12:00 110 07/16/19 12:00 Mechanical Ventilator 07/16/19 12:00 30 07/16/19 11:03 108 22 100 Mechanical Ventilator 30 109 21 30 07/16/19 11:00 108 23 135/86 (102) 100 07/16/19 10:00 109 21 140/84 (102) 100 07/16/19 09:00 111 22 137/82 (100) 100 07/16/19 08:02 100 07/16/19 08:00 113 07/16/19 08:00 Mechanical Ventilator 07/16/19 08:00 98.1 112 24 125/88 (100) 100 07/16/19 08:00 30 07/16/19 07:00 114 27 138/88 (105) 100 07/16/19 07:00 30 07/16/19 06:59 114 24 100 Mechanical Ventilator 30 116 27 30 30 07/16/19 06:00 114 32 131/82 (98) 100 07/16/19 05:00 113 28 88/64 (72) 100 07/16/19 04:00 Mechanical Ventilator 07/16/19 04:00 98.3 128 38 101/65 (77) 100 07/16/19 04:00 114 07/16/19 04:00 30 07/16/19 03:29 115 27 100 Mechanical Ventilator 30 117 26 30 07/16/19 03:00 111 25 116/71 (86) 100 07/16/19 02:00 116 22 150/96 (114) 100 07/16/19 01:00 117 26 140/92 (108) 100 07/16/19 00:00 98.6 115 26 127/83 (98) 100 07/16/19 00:00 Mechanical Ventilator 07/15/19 23:30 112 26 100 Mechanical Ventilator 30 114 27 30 07/15/19 23:00 112 27 118/87 (97) 100 07/15/19 23:00 124/80 07/15/19 22:00 108 26 102/63 (76) 100 07/15/19 21:06 97.4 07/15/19 21:00 116 24 124/80 (95) 100 07/15/19 20:00 97.4 126 40 130/87 (101) 100 07/15/19 20:00 30 07/15/19 20:00 Mechanical Ventilator 07/15/19 20:00 126 07/15/19 19:30 130 34 30 07/15/19 19:00 128 30 129/91 (104) 100 07/15/19 18:00 136 38 142/95 (111) 100 Intake and Output 07/15/19 07/16/19 19:00 07:00 Intake Total 450 ml 820 ml Output Total 1000 ml 0 ml Balance -550 ml 820 ml Free Water 30 ml 280 ml Tube Feeding 420 ml 420 ml Other 120 ml Stool Total 0 ml Hemodialysis UF 1000 ml # Bowel Movements 2 Laboratory Tests 07/16/19 04:40: Phosphorus Level 6.0H 07/16/19 04:45: White Blood Count 12.7H, Red Blood Count 3.55L, Hemoglobin 10.2L, Hematocrit 31.9L, Mean Corpuscular Volume 90, Mean Corpuscular Hemoglobin 28.8, Mean Corpuscular Hemoglobin Concent 31.9L, Red Cell Distribution Width 15.8H, Platelet Count 380, Mean Platelet Volume 7.0, Neutrophils (%) (Auto) 82.8H, Lymphocytes (%) (Auto) 8.9L, Monocytes (%) (Auto) 6.4, Eosinophils (%) (Auto) 1.4, Basophils (%) (Auto) 0.5, Sodium Level 136, Potassium Level 4.1, Chloride Level 95L, Carbon Dioxide Level 20L, Anion Gap 21H, Blood Urea Nitrogen 60H, Creatinine 8.3H, Estimat Glomerular Filtration Rate 6.5, Glucose Level 189H, Calcium Level 9.6, Total Bilirubin 0.6, Aspartate Amino Transf (AST/SGOT) 30, Alanine Aminotransferase (ALT/SGPT) 9L, Alkaline Phosphatase 136H, Total Protein 9.5H, Albumin 2.9L, Globulin 6.6, Albumin/Globulin Ratio 0.4L Height (Feet): 6 Height (Inches): 1.00 Weight (Pounds): 182 Karishma Mulligan MD Jul 16, 2019 17:20
[2019-07-16] MEDS: Epoetin Alfa-EPBX(ESRD on dialysis)10,000 unit/ml vial SUBQ SCH (20:54)
[2019-07-16] MEDS: Dyna-Hex 2% Top Sol 2oz TOPIC SCH (20:55)
[2019-07-16] MEDS: D5W IV SCH ×3 (23:00)
[2019-07-16] MEDS: NOREPINEPHRINE BITARTRATE IV SCH ×3 (23:00)
[2019-07-17] VITALS (41 sets, daily range): BP systolic 67–181; BP diastolic 25–107
[2019-07-17] MEDS: Albuterol 90mcg Inhaler 8gm INH SCH ×6 (03:34→23:44)
[2019-07-17] MEDS: Renvela 2400 mg pkt NG SCH ×4 (06:02→23:35)
[2019-07-17] MEDS: NovoLOG Insulin Flexpen SUBQ SCH ×4 (06:03→23:36)
--- NOTE | 2019-07-17 06:56 | Cardiac Electrophysiology PN ---
Assessment/Plan Assessment/Plan 1. Elevated troponin. Low level and flat due to renal failure. On Aspirin. EF 60 %. 2. S/P Septic shock. Off midodrine 3. ESRD, on HD per Dr. Cole. 4. Resp failure due to COVID-19 positive pneumonia. On the Vent with 30% Fio2. S/P Tracheostomy 07/08/19 Being tried on CPAP today 5. MRSA carrier. 6. COPD. 7. Anemia. 8. Dysphagia, S/P PEG 07/13/19 DW RN Subjective Subjective In ICU, on Vent with 30% Fio2. Off pressors and Midodrine . S/P Tracheostomy. S /P PEG 07/13/19 S/P Left IG HD catheter placement and HD. Being tried on CPAP Objective Last 24 Hour Vital Signs Date Time Temp Pulse Resp B/P (MAP) Pulse Ox O2 Delivery O2 Flow Rate FiO2 07/17/19 06:00 95 26 113/82 (92) 100 07/17/19 05:00 108 28 129/88 (102) 100 07/17/19 04:00 97.6 109 24 141/107 (118) 100 07/17/19 04:00 30 07/17/19 04:00 108 07/17/19 04:00 Mechanical Ventilator 07/17/19 03:34 109 28 100 Mechanical Ventilator 30 110 28 30 07/17/19 03:00 112 29 144/95 (111) 100 07/17/19 02:00 110 23 133/91 (105) 100 07/17/19 01:00 113 25 131/96 (108) 100 07/17/19 00:00 30 07/17/19 00:00 98.1 114 25 134/95 (108) 100 07/17/19 00:00 114 07/17/19 00:00 Mechanical Ventilator 07/16/19 23:25 117 26 100 Mechanical Ventilator 30 117 27 30 07/16/19 23:00 132/85 07/16/19 23:00 119 25 132/85 (101) 100 07/16/19 22:00 115 24 143/91 (108) 100 07/16/19 21:00 117 23 136/90 (105) 100 07/16/19 20:00 97.9 114 21 130/96 (107) 100 07/16/19 20:00 Mechanical Ventilator 07/16/19 20:00 30 07/16/19 20:00 114 07/16/19 19:58 114 28 100 Mechanical Ventilator 30 117 29 30 07/16/19 19:00 120 23 129/78 (95) 100 07/16/19 18:00 118 23 139/90 (106) 100 07/16/19 17:00 116 25 147/86 (106) 100 07/16/19 16:00 130 07/16/19 16:00 97.7 116 24 151/94 (113) 100 07/16/19 16:00 30 07/16/19 16:00 Mechanical Ventilator 07/16/19 15:23 115 27 100 Mechanical Ventilator 30 115 29 30 07/16/19 15:00 117 24 135/99 (111) 100 07/16/19 14:00 112 20 150/82 (104) 100 07/16/19 13:00 113 21 152/95 (114) 100 07/16/19 12:00 97.6 113 24 147/91 (109) 100 07/16/19 12:00 110 07/16/19 12:00 Mechanical Ventilator 07/16/19 12:00 30 07/16/19 11:03 108 22 100 Mechanical Ventilator 30 109 21 30 07/16/19 11:00 108 23 135/86 (102) 100 07/16/19 10:00 109 21 140/84 (102) 100 07/16/19 09:00 111 22 137/82 (100) 100 07/16/19 08:02 100 07/16/19 08:00 113 07/16/19 08:00 Mechanical Ventilator 07/16/19 08:00 98.1 112 24 125/88 (100) 100 07/16/19 08:00 30 07/16/19 07:00 114 27 138/88 (105) 100 07/16/19 07:00 30 07/16/19 06:59 114 24 100 Mechanical Ventilator 30 116 27 30 30 Intake and Output 07/16/19 07/17/19 19:00 07:00 Intake Total 450 ml 825 ml Balance 450 ml 825 ml Free Water 30 ml 280 ml Tube Feeding 420 ml 385 ml Other 160 ml # Bowel Movements 2 4 Objective HEAD AND NECK: No JVD. Tracheostomy in place. Left IJ HD catheter now in place LUNGS: Decreased breath sounds. CARDIOVASCULAR: Regular S1 and S2. Tachycardic. ABDOMEN: Soft. PEG in place EXTREMITIES: No pitting edema. Left FV Gio Engle MD Jul 17, 2019 06:56
--- NOTE | 2019-07-17 07:08 | Pulmonolgy Critical Care Note ---
Critical Care - Asmt/Plan Assessment/Plan: Pulmonary CCM Progress Note HPI: Patient is a 68 year old man, long-term resident, admitted c/o shortness of breath, cough, noted to have Covid 19 Pneumonia, Respiratory Failure Remains on Ventilator, CXR improving infiltrates ETT adjusted Septic Shock, pressors off currently, on Mitodrine Preserved EF FIO2 40%-50%, P5, adequate O2 sats, remains on ACVC, s/p Tracheostomy, CXR stable, sp PEG Seen earlier on 07/16/2019 ID following Past Medical History: COPD, CKD, Hypertension, Anemia Allergies: No Known Allergies Improving Pulmonary Status on HD Physical Exam Vital Signs Noted Sedated on ventilator WDWN, no distress HEENT: NCAT,moist mm Chest: Occasional rhonchi Heart: HS1, HS2, RRR Abdomen: SNTND, no masses Extremities: Well perfused, no edema 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, no seizures, sedated Impression: COVID-19 virus infection Pneumonia Respiratory failure on ventilator, wean as tolerated CKD - on HD Hypotension on pressors previously Cardiomegaly Lymphopenia Elevated AST COPD Chronic Kidney Disease - HD H/o Hypertension Worsening anemia Plan: Tolerated Tracheostomy Antibiotics per ID HD Pressors PRN ACVC - wean as tolerated 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 Monitor cultures/viral studies PPX Hemodialysis per Renal Psychiatry following [facility] - [facility] requested for when available, [facility] - not available as yet Laboratory Tests Noted: CXR: Hypoventilatory exam, interstitial changes, cardiomegaly, improving infiltrates Subjective ROS Limited/Unobtainable: No Constitutional: Denies: fever Respiratory: Reports: dry cough, shortness of breath Gastrointestinal/Abdominal: Reports: diarrhea, other - colace was stopped Psychiatric: Reports: other - refuses labs Allergies: Coded Allergies: No Known Allergies (Unverified , 05/28/19) All Systems: reviewed and negative except above Labs noted Critical Care - Objective Last 24 Hour Vital Signs Date Time Temp Pulse Resp B/P (MAP) Pulse Ox O2 Delivery O2 Flow Rate FiO2 07/17/19 07:00 100 26 90/25 (46) 100 07/17/19 06:00 95 26 113/82 (92) 100 07/17/19 05:00 108 28 129/88 (102) 100 07/17/19 04:00 97.6 109 24 141/107 (118) 100 07/17/19 04:00 30 07/17/19 04:00 108 07/17/19 04:00 Mechanical Ventilator 07/17/19 03:34 109 28 100 Mechanical Ventilator 30 110 28 30 07/17/19 03:00 112 29 144/95 (111) 100 07/17/19 02:00 110 23 133/91 (105) 100 07/17/19 01:00 113 25 131/96 (108) 100 07/17/19 00:00 30 07/17/19 00:00 98.1 114 25 134/95 (108) 100 07/17/19 00:00 114 07/17/19 00:00 Mechanical Ventilator 07/16/19 23:25 117 26 100 Mechanical Ventilator 30 117 27 30 07/16/19 23:00 132/85 07/16/19 23:00 119 25 132/85 (101) 100 07/16/19 22:00 115 24 143/91 (108) 100 07/16/19 21:00 117 23 136/90 (105) 100 07/16/19 20:00 97.9 114 21 130/96 (107) 100 07/16/19 20:00 Mechanical Ventilator 07/16/19 20:00 30 07/16/19 20:00 114 07/16/19 19:58 114 28 100 Mechanical Ventilator 30 117 29 30 07/16/19 19:00 120 23 129/78 (95) 100 07/16/19 18:00 118 23 139/90 (106) 100 07/16/19 17:00 116 25 147/86 (106) 100 07/16/19 16:00 130 07/16/19 16:00 97.7 116 24 151/94 (113) 100 07/16/19 16:00 30 07/16/19 16:00 Mechanical Ventilator 07/16/19 15:23 115 27 100 Mechanical Ventilator 30 115 29 30 07/16/19 15:00 117 24 135/99 (111) 100 07/16/19 14:00 112 20 150/82 (104) 100 07/16/19 13:00 113 21 152/95 (114) 100 07/16/19 12:00 97.6 113 24 147/91 (109) 100 07/16/19 12:00 110 07/16/19 12:00 Mechanical Ventilator 07/16/19 12:00 30 07/16/19 11:03 108 22 100 Mechanical Ventilator 30 109 21 30 07/16/19 11:00 108 23 135/86 (102) 100 07/16/19 10:00 109 21 140/84 (102) 100 07/16/19 09:00 111 22 137/82 (100) 100 07/16/19 08:02 100 07/16/19 08:00 113 07/16/19 08:00 Mechanical Ventilator 07/16/19 08:00 98.1 112 24 125/88 (100) 100 07/16/19 08:00 30 Accucheck: 171 Critical Care - Subjective ROS Limited/Unobtainable: Yes Condition: stable FI02: 30 Vent Support Breath Rate: 26 Vent Support Mode: AC Vent Tidal Volume: 500 Sputum Amount: Small PEEP: 5.0 PIP: 28 Tube Feeding Amount: 35 I&O: Intake and Output 07/16/19 07/17/19 19:00 07:00 Intake Total 450 ml 860 ml Balance 450 ml 860 ml Free Water 30 ml 280 ml Tube Feeding 420 ml 420 ml Other 160 ml # Bowel Movements 2 4 ET-Tube: 7.5 ET Position: 24 Arturo Mckeon MD Jul 17, 2019 07:08
[2019-07-17 07:28] LABS: BASOPHILS % (AUTO) 0.8 % (0.0-2.0); EOSINOPHILS % (AUTO) 1.6 % (0.0-3.0); HEMATOCRIT 34.1 % (42.0-52.0); LYMPHOCYTES % (AUTO) 7.3 % (20.0-45.0); MEAN CORPUSCULAR VOLUME 90 FL (80-99); MONOCYTES % (AUTO) 7.6 % (1.0-10.0); NEUTROPHILS % (AUTO) 82.7 % (45.0-75.0); PLATELET COUNT 408 K/UL (150-450); RED CELL DISTRIBUTION WIDTH 16.1 % (11.6-14.8)
[2019-07-17 07:44] LABS: ALANINE AMINOTRANSFERASE 14 U/L (12-78); ALBUMIN/GLOBULIN RATIO 0.4 (1.0-2.7); ALKALINE PHOSPHATASE 170 U/L (46-116); ANION GAP 21 mmol/L (5-15); ASPARTATE AMINO TRANSFERASE 49 U/L (15-37); BILIRUBIN,TOTAL 0.4 MG/DL (0.2-1.0); BLOOD UREA NITROGEN 75 mg/dL (7-18); CARBON DIOXIDE 20 MMOL/L (21-32); CHLORIDE 92 MMOL/L (98-107); CREATININE 9.3 MG/DL (0.55-1.30); PHOSPHORUS 6.1 MG/DL (2.5-4.9); POTASSIUM 4.4 MMOL/L (3.5-5.1); SODIUM 133 MMOL/L (136-145)
[2019-07-17] MEDS: Pantoprazole Inj IVP SCH (08:38)
[2019-07-17] MEDS: Enoxaparin 30mg Inj SUBQ SCH (08:40)
[2019-07-17] MEDS ORDERED: Midodrine 10mg tab ORAL SCH (10:30)
[2019-07-17] MEDS: D5W IV SCH ×3 (10:31)
[2019-07-17] MEDS: NOREPINEPHRINE BITARTRATE IV SCH ×3 (10:31)
--- NOTE | 2019-07-17 10:31 | Nephrology Progress Note ---
Assessment/Plan Problem List: (1) CASSANDRA (acute kidney injury) (2) Anemia in chronic kidney disease (CKD) (3) HTN (hypertension) (4) COVID-19 Assessment Acute renal failure most likely superimposed on chronic kidney disease Suspected COVID-19 virus infection Possible Pneumonia, lymphopenia, elevated AST Cardiomegaly, possible CHF COPD Hypertension Anemia, most likely related to chronic kidney disease Plan July 16: Dialysis today. Will resume Midodrin to prevent hypotension. Patient remains full code. July 15: Dialyzed yesterday, due for dialysis tomorrow. Labs and medication list reviewed. Continue per consultants. Patient remains full code. COVID-19 detected again. July 14: Patient currently on dialysis. This is continuation of dialysis from yesterday as yesterday's dialysis was cut short due to catheter malfunction. Labs and medication reviewed. Continue per consultants. July 13: Patient currently on hemodialysis. The dialysis catheter which is a intrajugular Kamlesh has poor flow. Will try TPA. Continue per consultants. July 12: Due for PEG today. Due for dialysis tomorrow. Continue per consultants. Discussed with RN. July 11: Plan for dialysis today. Discussed with RN. Data reviewed. July 10: Plan for dialysis tomorrow July 11. Waiting for consent to proceed with PEG. Continue per consultants. Medication reviewed. Labs reviewed. Discussed with RN. July 09: Dialyzed yesterday. Labs reviewed. Medication reviewed. Next hemodialysis July 11. July 08: Patient has tracheostomy now. Connected to ventilator. Due for dialysis today. Continue per consultants. Discussed with SHANIQUE Romero. July 07: Patient is due for tracheostomy today. Patient was last dialyzed July 05. Will order dialysis for tomorrow. July 06: Patient is intubated on ventilator however the plan is to extubate today. Patient was dialysis yesterday July 05. The dialysis time was cut short due to patient's respiratory distress. Only 1 L was removed during dialysis yesterday. Today's lab reviewed. Continue per consultants. Will arrange for dialysis as needed. July 05: Patient due for dialysis today. Remains intubated. Will schedule permacath placement in a.m. blood cultures on July 04 are negative. July 04: Patient was dialyzed yesterday. Due for dialysis tomorrow. Continues to be intubated. After tomorrow's dialysis will order a permacath. July 03: Dialysis is about to be started now Continues to be intubated Will plan to remove the femoral dialysis catheter and exchanged for a new temporary catheter per ID recommendation We will check surveillance blood culture tomorrow July 02: Patient was dialyzed yesterday and due for dialysis tomorrow Stable from renal standpoint W on dialysis Continue per consultants, weaning....... etc. July 01: Dialysis today Other status unchanged June 30: Due for dialysis tomorrow Remains intubated on ventilator Labs and medication reviewed Discussed with RN Stable from renal standpoint of view June 29: Dialyzed yesterday Due for dialysis tomorrow Stable from renal standpoint to view Keeps failing weaning process June 28: Patient due for dialysis today Stable from renal standpoint to view Continue per consultants June 27: Labs reviewed Due due for dialysis June 28 Discussed with SHANIQUE Silverman per consultants Remains intubated on ventilator June 26 Labs reviewed Dialyzed yesterday Started on weaning today Continue to monitor renal parameters June 25: On dialysis now Potassium supplement implemented Continue per consultants Next dialysis June 27June 15: Status unchanged Dialyzed yesterday will dialyze again tomorrow Potassium supplements given Discussed with RN June 14: Due dialysis today Status: Remains intubated on ventilator June 13: Status unchanged Dialyzed yesterday and duefordialysistomorrow Serum sodium stable today June 21 Remains intubated on ventilator Due dialysis today Emphasized high sodium bath for dialysis June 20: Remains intubated on ventilator Dialyzed June 19 next dialysis June 21 Serum sodium 128, will give 250 cc 3% saline Remains full code Discussed with RN Iron panel ordered June 19: Discussed with RN. Patient due for dialysis today. Continue pulmonary support. Remains full code. June 18: Patient dialyzed yesterday June 17 Serum sodium improved but still low Arrange for dialysis tomorrow June 19 Continue per consultants June 17: Due for dialysis today Today's lab reviewed, low serum sodium noted, Emphasized on high sodium bath to dialysis nurse Discussed with SHANIQUE Yuen June 16: Dialyzed yesterday Remains intubated Labs reviewed, serum sodium 131 Plan to dialyze tomorrow June 17 with high sodium bath Discussed with SHANIQUE Yuen June 6: Due for dialysis today Labs reviewed Discussed with RN Transfuse 1 unit of packed RBCs today for low hemoglobin of 7.1 June 5: Blood pressure well maintained Receive dialysis June 13 next hemodialysis June 15June 4: Discussed with RN in ICU Patient did not receive proper dialysis yesterday due to dialysis catheter malfunction Catheter to be adjusted today and dialyzed to be resumed today Continue per consultants Positive for COVID 28 June 2: Patient now intubated on mechanical ventilation Discussed with RN Alpa, today June 12 Patient received dialysis yesterday June 10 next hemodialysis June 12 Blood pressure better maintained Today's labs reviewed Continue per consultants Previously patient received dialysis last evening June 05, next dialysis June 07 which was incomplete due to patient's hypotension Will start on midodrine for blood pressure support. Meanwhile continue other pressors as needed Previously Patient is doing poorly, septic, white blood cells are rising, Hypotension somewhat improved We will keep n.p.o. , NG tube for medications, and change medication to IV as needed Patient remains full code Monitor vancomycin level Previously: Patient pulled out his femoral catheter yesterday June 03 which was reinserted by Dr. Mast Patient scheduled for dialysis again June 04, which again was not done due to dialysis nurse citing catheter malfunction Meanwhile continue management per ID, pulmonary , and psych. Meanwhile white blood cell count is rising. Patient blood pressure borderline low. Will check ABG Previously May 31 : I believe patient need dialysis treatment He however needs to competency assessment if can make decisions or not I will communicate with Dr. Mulligan Previously: Per pulmonary and ID advice Adjust blood pressure medication Renal diet Anemia work-up 2D echocardiogram refused Kidney ultrasound refused Jules catheter Urine studies Per orders Subjective ROS Limited/Unobtainable: Yes Objective Objective Last 24 Hour Vital Signs Date Time Temp Pulse Resp B/P (MAP) Pulse Ox O2 Delivery O2 Flow Rate FiO2 07/17/19 10:21 30 07/17/19 08:46 80/45 07/17/19 08:38 70 22 181/94 (123) 96 07/17/19 08:31 94 23 84/60 (68) 99 07/17/19 08:15 93 24 73/58 (63) 99 07/17/19 08:00 Mechanical Ventilator 07/17/19 08:00 30 07/17/19 08:00 97.3 95 24 80/54 (63) 99 07/17/19 07:28 96 26 100 Mechanical Ventilator 30 99 26 30 07/17/19 07:00 100 26 90/25 (46) 100 07/17/19 06:00 95 26 113/82 (92) 100 07/17/19 05:00 108 28 129/88 (102) 100 07/17/19 04:00 97.6 109 24 141/107 (118) 100 07/17/19 04:00 30 07/17/19 04:00 108 07/17/19 04:00 Mechanical Ventilator 07/17/19 03:34 109 28 100 Mechanical Ventilator 30 110 28 30 07/17/19 03:00 112 29 144/95 (111) 100 07/17/19 02:00 110 23 133/91 (105) 100 07/17/19 01:00 113 25 131/96 (108) 100 07/17/19 00:00 30 07/17/19 00:00 98.1 114 25 134/95 (108) 100 07/17/19 00:00 114 07/17/19 00:00 Mechanical Ventilator 07/16/19 23:25 117 26 100 Mechanical Ventilator 30 117 27 30 07/16/19 23:00 132/85 07/16/19 23:00 119 25 132/85 (101) 100 07/16/19 22:00 115 24 143/91 (108) 100 07/16/19 21:00 117 23 136/90 (105) 100 07/16/19 20:00 97.9 114 21 130/96 (107) 100 07/16/19 20:00 Mechanical Ventilator 07/16/19 20:00 30 07/16/19 20:00 114 07/16/19 19:58 114 28 100 Mechanical Ventilator 30 117 29 30 07/16/19 19:00 120 23 129/78 (95) 100 07/16/19 18:00 118 23 139/90 (106) 100 07/16/19 17:00 116 25 147/86 (106) 100 07/16/19 16:00 130 07/16/19 16:00 97.7 116 24 151/94 (113) 100 07/16/19 16:00 30 07/16/19 16:00 Mechanical Ventilator 07/16/19 15:23 115 27 100 Mechanical Ventilator 30 115 29 30 07/16/19 15:00 117 24 135/99 (111) 100 07/16/19 14:00 112 20 150/82 (104) 100 07/16/19 13:00 113 21 152/95 (114) 100 07/16/19 12:00 97.6 113 24 147/91 (109) 100 07/16/19 12:00 110 07/16/19 12:00 Mechanical Ventilator 07/16/19 12:00 30 07/16/19 11:03 108 22 100 Mechanical Ventilator 30 109 21 30 07/16/19 11:00 108 23 135/86 (102) 100 Intake and Output 07/16/19 07/17/19 19:00 07:00 Intake Total 450 ml 860 ml Balance 450 ml 860 ml Free Water 30 ml 280 ml Tube Feeding 420 ml 420 ml Other 160 ml # Bowel Movements 2 4 Laboratory Tests 07/17/19 05:00: White Blood Count 15.0H, Red Blood Count 3.80L, Hemoglobin 11.0L, Hematocrit 34.1L, Mean Corpuscular Volume 90, Mean Corpuscular Hemoglobin 29.0, Mean Corpuscular Hemoglobin Concent 32.3, Red Cell Distribution Width 16.1H, Platelet Count 408, Mean Platelet Volume 6.2L, Neutrophils (%) (Auto) 82.7H, Lymphocytes (%) (Auto) 7.3L, Monocytes (%) (Auto) 7.6, Eosinophils (%) (Auto) 1.6, Basophils (%) (Auto) 0.8, Sodium Level 133L, Potassium Level 4.4, Chloride Level 92L, Carbon Dioxide Level 20L, Anion Gap 21H, Blood Urea Nitrogen 75H, Creatinine 9.3H, Estimat Glomerular Filtration Rate 5.7, Glucose Level 161H, Uric Acid 6.7, Calcium Level 10.0, Phosphorus Level 6.1H, Magnesium Level 3.0H, Total Bilirubin 0.4, Aspartate Amino Transf (AST/SGOT) 49H, Alanine Aminotransferase (ALT/SGPT) 14, Alkaline Phosphatase 170H, C-Reactive Protein, Quantitative 7.5H, Pro-B-Type Natriuretic Peptide [id number], Total Protein 9.8H, Albumin 3.0L, Globulin 6.8, Albumin/Globulin Ratio 0.4L Height (Feet): 6 Height (Inches): 1.00 Weight (Pounds): 185 General Appearance: no apparent distress EENT: other - Trached and vent Cardiovascular: normal rate Respiratory/Chest: decreased breath sounds Abdomen: distended, other - PEG Objective No change Mic Cole MD Jul 17, 2019 10:31
--- NOTE | 2019-07-17 14:11 | Surgery Progress Note ---
Surgery Progress Note Subjective Procedure Performed Right femoral temporary hemodialysis catheter removal Symptoms: improved Objective Last 24 Hour Vital Signs Date Time Temp Pulse Resp B/P (MAP) Pulse Ox O2 Delivery O2 Flow Rate FiO2 07/17/19 13:15 102 32 97/63 (74) 100 07/17/19 13:00 111 37 115/69 (84) 100 07/17/19 13:00 97/63 07/17/19 12:00 98.0 95 26 109/63 (78) 100 07/17/19 12:00 30 07/17/19 12:00 111/59 07/17/19 12:00 93 07/17/19 12:00 Mechanical Ventilator 07/17/19 11:00 121/73 07/17/19 11:00 96 26 109/63 (78) 100 07/17/19 10:45 94 25 100/62 (75) 100 07/17/19 10:31 85/50 07/17/19 10:30 101 29 100 Mechanical Ventilator 30 98 29 30 07/17/19 10:30 93 26 101/63 (76) 100 07/17/19 10:21 30 07/17/19 10:15 110 14 76/44 (55) 100 07/17/19 10:10 112 26 69/46 (54) 100 07/17/19 10:00 115 27 67/45 (52) 100 07/17/19 09:30 115 32 97/56 (70) 100 07/17/19 09:00 89 26 121/71 (88) 100 07/17/19 08:46 80/45 07/17/19 08:38 70 22 181/94 (123) 96 07/17/19 08:31 94 23 84/60 (68) 99 07/17/19 08:15 93 24 73/58 (63) 99 07/17/19 08:00 Mechanical Ventilator 07/17/19 08:00 30 07/17/19 08:00 97.3 95 24 80/54 (63) 99 07/17/19 08:00 94 07/17/19 07:28 96 26 100 Mechanical Ventilator 30 99 26 30 07/17/19 07:00 100 26 90/25 (46) 100 07/17/19 06:00 95 26 113/82 (92) 100 07/17/19 05:00 108 28 129/88 (102) 100 07/17/19 04:00 97.6 109 24 141/107 (118) 100 07/17/19 04:00 30 07/17/19 04:00 108 07/17/19 04:00 Mechanical Ventilator 07/17/19 03:34 109 28 100 Mechanical Ventilator 30 110 28 30 07/17/19 03:00 112 29 144/95 (111) 100 07/17/19 02:00 110 23 133/91 (105) 100 07/17/19 01:00 113 25 131/96 (108) 100 07/17/19 00:00 30 07/17/19 00:00 98.1 114 25 134/95 (108) 100 07/17/19 00:00 114 07/17/19 00:00 Mechanical Ventilator 07/16/19 23:25 117 26 100 Mechanical Ventilator 30 117 27 30 07/16/19 23:00 132/85 07/16/19 23:00 119 25 132/85 (101) 100 07/16/19 22:00 115 24 143/91 (108) 100 07/16/19 21:00 117 23 136/90 (105) 100 07/16/19 20:00 97.9 114 21 130/96 (107) 100 07/16/19 20:00 Mechanical Ventilator 07/16/19 20:00 30 07/16/19 20:00 114 07/16/19 19:58 114 28 100 Mechanical Ventilator 30 117 29 30 07/16/19 19:00 120 23 129/78 (95) 100 07/16/19 18:00 118 23 139/90 (106) 100 07/16/19 17:00 116 25 147/86 (106) 100 07/16/19 16:00 130 07/16/19 16:00 97.7 116 24 151/94 (113) 100 07/16/19 16:00 30 07/16/19 16:00 Mechanical Ventilator 07/16/19 15:23 115 27 100 Mechanical Ventilator 30 115 29 30 07/16/19 15:00 117 24 135/99 (111) 100 I&O Intake and Output 07/16/19 07/17/19 19:00 07:00 Intake Total 450 ml 860 ml Balance 450 ml 860 ml Free Water 30 ml 280 ml Tube Feeding 420 ml 420 ml Other 160 ml # Bowel Movements 2 4 Dressing: other Wound: other Drains: other Cardiovascular: RSR Respiratory: decreased breath sounds Abdomen: soft, present bowel sounds Extremities: no cyanosis Laboratory Tests Test 07/17/19 05:00 White Blood Count 15.0 K/UL (4.8-10.8) H Red Blood Count 3.80 M/UL (4.70-6.10) L Hemoglobin 11.0 G/DL (14.2-18.0) L Hematocrit 34.1 % (42.0-52.0) L Mean Corpuscular Volume 90 FL (80-99) Mean Corpuscular Hemoglobin 29.0 PG (27.0-31.0) Mean Corpuscular Hemoglobin Concent 32.3 G/DL (32.0-36.0) Red Cell Distribution Width 16.1 % (11.6-14.8) H Platelet Count 408 K/UL (150-450) Mean Platelet Volume 6.2 FL (6.5-10.1) L Neutrophils (%) (Auto) 82.7 % (45.0-75.0) H Lymphocytes (%) (Auto) 7.3 % (20.0-45.0) L Monocytes (%) (Auto) 7.6 % (1.0-10.0) Eosinophils (%) (Auto) 1.6 % (0.0-3.0) Basophils (%) (Auto) 0.8 % (0.0-2.0) Sodium Level 133 MMOL/L (136-145) L Potassium Level 4.4 MMOL/L (3.5-5.1) Chloride Level 92 MMOL/L (98-107) L Carbon Dioxide Level 20 MMOL/L (21-32) L Anion Gap 21 mmol/L (5-15) H Blood Urea Nitrogen 75 mg/dL (7-18) H Creatinine 9.3 MG/DL (0.55-1.30) H Estimat Glomerular Filtration Rate 5.7 mL/min (>60) Glucose Level 161 MG/DL (74-106) H Uric Acid 6.7 MG/DL (2.6-7.2) Calcium Level 10.0 MG/DL (8.5-10.1) Phosphorus Level 6.1 MG/DL (2.5-4.9) H Magnesium Level 3.0 MG/DL (1.8-2.4) H Total Bilirubin 0.4 MG/DL (0.2-1.0) Aspartate Amino Transf (AST/SGOT) 49 U/L (15-37) H Alanine Aminotransferase (ALT/SGPT) 14 U/L (12-78) Alkaline Phosphatase 170 U/L (46-116) H C-Reactive Protein, Quantitative 7.5 mg/dL (0.00-0.90) H Pro-B-Type Natriuretic Peptide 43237 pg/mL (0-125) H Total Protein 9.8 G/DL (6.4-8.2) H Albumin 3.0 G/DL (3.4-5.0) L Globulin 6.8 g/dL Albumin/Globulin Ratio 0.4 (1.0-2.7) L Plan Problems: (1) Suspected COVID-19 virus infection (2) HTN (hypertension) (3) CASSANDRA (acute kidney injury) Assessment & Plan: Needs urgent HD needs access patient okay and consented see note will follow with recs new line placed discussed with team and nephrology HD line functional when checked has TPA now please use appropriately Cathflo used again this flow during dialysis on 430 was low. Will monitor may need line change 5/4 plan for HD as per renal may need to take fluid off with HD edema anasarca dressings saturated and changed will monitor cont with HD IJ left line placed for HD given extent of prior line in place. leukocytosis blood cx negative may need to change out line (4) Anemia in chronic kidney disease (CKD) (5) Anemia (6) Renal failure (7) Suspected COVID-19 virus infection Assessment & Plan: Pt deconditioned and despite all skin preventions Pt noted to have developed several pressure injuries. . Stable dry eschar noted to clefts of R and L ears. No erythema noted . DTPI noted to L trochanter. Base of injury is maroon in colour with marginal erythema along borders. Partially opened DTPI Sacrum, R and L Buttocks. Base of wound is maroon with two small open wounds L sacrum and L buttocks. Pt has an APM/MOMO Mattress overlay and is being positioned with pillows as per tolerance and within protocols. worsening despite medical efforts will cont to provide therapy Tx.Plan: Apply Cavilon Skin Barrier to both ears Daily and prn. Apply Moisture Barrier Paste to Sacrum,R and L Buttocks. Cover with Optifoam drsgs. Change every 3 days and PRN. Apply Cavilon Skin Barrier to R and L trochanter. Cover each site with Optifoam drsgs.Change every 7 days and PRN. Apply Cavilon Skin Barrier to both heels. Cover each heel with Optifoam drsg. Change every 7 days and prn. Off-load heels with pillow. Reposition at least every 2hours or as tolerated. APM/MOMO Mattress overlay. (8) COVID-19 Assessment & Plan: COVID + c diff negative febrile leukocytosis renal insufficiency see above cont resp care Rx as per ID worsening on vent support now cxr noted on pressors prognosis guarded repeat covid ++ weaning vent and pressors off slowly showing improvement slowly recovering will need trach as unable to wean vent safely called and spoke with country conservatorship. consent obtained s/p trach pending peg Yaniv Mast Jul 17, 2019 14:11
[2019-07-17] MEDS: Acetaminophen 650mg/20.3ml NG PRN (14:30)
[2019-07-17] MEDS: Midodrine 10mg tab ORAL SCH ×2 (14:30→21:21)
--- NOTE | 2019-07-17 19:50 | General Progress Note ---
Assessment/Plan Problem List: (1) HTN (hypertension) ICD Codes: I10 - Essential (primary) hypertension SNOMED: 09285647 (2) CASSANDRA (acute kidney injury) ICD Codes: N17.9 - Acute kidney failure, unspecified SNOMED: 8131061, 44438539 (3) Anemia in chronic kidney disease (CKD) ICD Codes: N18.9 - Chronic kidney disease, unspecified; D63.1 - Anemia in chronic kidney disease SNOMED: 556086585 (4) Renal failure ICD Codes: N19 - Unspecified kidney failure SNOMED: 96532565 (5) Respiratory failure requiring intubation ICD Codes: J96.90 - Respiratory failure, unspecified, unspecified whether with hypoxia or hypercapnia; A41.89 - Other specified sepsis SNOMED: 066274516, 553396537 (6) Pneumonia due to COVID-19 virus ICD Codes: U07.1 - COVID-19; J12.89 - Other viral pneumonia SNOMED: 472191763, 475262818 (7) Sepsis due to severe acute respiratory syndrome coronavirus 2 (SARS-CoV-2) ICD Codes: U07.1 - COVID-19; A41.89 - Other specified sepsis SNOMED: 028843910, 404188390 Status: progressing, unchanged Assessment/Plan: trach and peg worsening leukocytosis continue supportive therapy still getting diaylsis s/p covid pna Subjective ROS Limited/Unobtainable: Yes Allergies: Coded Allergies: No Known Allergies (Unverified , 05/28/19) Objective Last 24 Hour Vital Signs Date Time Temp Pulse Resp B/P (MAP) Pulse Ox O2 Delivery O2 Flow Rate FiO2 07/17/19 19:35 112 33 100 Mechanical Ventilator 30 109 33 30 07/17/19 19:00 112 40 128/82 (97) 100 07/17/19 18:15 116 33 102/73 (83) 100 07/17/19 18:00 110 32 106/82 (90) 100 07/17/19 17:00 99 32 102/64 (77) 100 07/17/19 16:30 120 35 102/69 (80) 100 07/17/19 16:15 127 39 96/77 (83) 100 07/17/19 16:00 Mechanical Ventilator 07/17/19 16:00 30 07/17/19 16:00 98.9 125 31 98/73 (81) 100 07/17/19 16:00 87 07/17/19 15:58 111 29 30 07/17/19 15:00 94 26 115/67 (83) 100 07/17/19 14:00 91 19 112/62 (79) 100 07/17/19 13:15 102 32 97/63 (74) 100 07/17/19 13:00 111 37 115/69 (84) 100 07/17/19 13:00 97/63 07/17/19 12:00 98.0 95 26 109/63 (78) 100 07/17/19 12:00 30 07/17/19 12:00 111/59 07/17/19 12:00 93 07/17/19 12:00 Mechanical Ventilator 07/17/19 11:00 121/73 07/17/19 11:00 96 26 109/63 (78) 100 07/17/19 10:45 94 25 100/62 (75) 100 07/17/19 10:31 85/50 07/17/19 10:30 101 29 100 Mechanical Ventilator 30 98 29 30 07/17/19 10:30 93 26 101/63 (76) 100 07/17/19 10:21 30 07/17/19 10:15 110 14 76/44 (55) 100 07/17/19 10:10 112 26 69/46 (54) 100 07/17/19 10:00 115 27 67/45 (52) 100 07/17/19 09:30 115 32 97/56 (70) 100 07/17/19 09:00 89 26 121/71 (88) 100 07/17/19 08:46 80/45 07/17/19 08:38 70 22 181/94 (123) 96 07/17/19 08:31 94 23 84/60 (68) 99 07/17/19 08:15 93 24 73/58 (63) 99 07/17/19 08:00 Mechanical Ventilator 07/17/19 08:00 30 07/17/19 08:00 97.3 95 24 80/54 (63) 99 07/17/19 08:00 94 07/17/19 07:28 96 26 100 Mechanical Ventilator 30 99 26 30 07/17/19 07:00 100 26 90/25 (46) 100 07/17/19 06:00 95 26 113/82 (92) 100 07/17/19 05:00 108 28 129/88 (102) 100 07/17/19 04:00 97.6 109 24 141/107 (118) 100 07/17/19 04:00 30 07/17/19 04:00 108 07/17/19 04:00 Mechanical Ventilator 07/17/19 03:34 109 28 100 Mechanical Ventilator 30 110 28 30 07/17/19 03:00 112 29 144/95 (111) 100 07/17/19 02:00 110 23 133/91 (105) 100 07/17/19 01:00 113 25 131/96 (108) 100 07/17/19 00:00 30 07/17/19 00:00 98.1 114 25 134/95 (108) 100 07/17/19 00:00 114 07/17/19 00:00 Mechanical Ventilator 07/16/19 23:25 117 26 100 Mechanical Ventilator 30 117 27 30 07/16/19 23:00 132/85 07/16/19 23:00 119 25 132/85 (101) 100 07/16/19 22:00 115 24 143/91 (108) 100 07/16/19 21:00 117 23 136/90 (105) 100 07/16/19 20:00 97.9 114 21 130/96 (107) 100 07/16/19 20:00 Mechanical Ventilator 07/16/19 20:00 30 07/16/19 20:00 114 07/16/19 19:58 114 28 100 Mechanical Ventilator 30 117 29 30 Intake and Output 07/16/19 07/17/19 19:00 07:00 Intake Total 450 ml 860 ml Balance 450 ml 860 ml Free Water 30 ml 280 ml Tube Feeding 420 ml 420 ml Other 160 ml # Bowel Movements 2 4 Laboratory Tests 07/17/19 05:00: White Blood Count 15.0H, Red Blood Count 3.80L, Hemoglobin 11.0L, Hematocrit 34.1L, Mean Corpuscular Volume 90, Mean Corpuscular Hemoglobin 29.0, Mean Corpuscular Hemoglobin Concent 32.3, Red Cell Distribution Width 16.1H, Platelet Count 408, Mean Platelet Volume 6.2L, Neutrophils (%) (Auto) 82.7H, Lymphocytes (%) (Auto) 7.3L, Monocytes (%) (Auto) 7.6, Eosinophils (%) (Auto) 1.6, Basophils (%) (Auto) 0.8, Sodium Level 133L, Potassium Level 4.4, Chloride Level 92L, Carbon Dioxide Level 20L, Anion Gap 21H, Blood Urea Nitrogen 75H, Creatinine 9.3H, Estimat Glomerular Filtration Rate 5.7, Glucose Level 161H, Uric Acid 6.7, Calcium Level 10.0, Phosphorus Level 6.1H, Magnesium Level 3.0H, Total Bilirubin 0.4, Aspartate Amino Transf (AST/SGOT) 49H, Alanine Aminotransferase (ALT/SGPT) 14, Alkaline Phosphatase 170H, C-Reactive Protein, Quantitative 7.5H, Pro-B-Type Natriuretic Peptide 63244S, Total Protein 9.8H, Albumin 3.0L, Globulin 6.8, Albumin/Globulin Ratio 0.4L Height (Feet): 6 Height (Inches): 1.00 Weight (Pounds): 185 Karishma Mulligan MD Jul 17, 2019 19:50
[2019-07-17] MEDS: Dyna-Hex 2% Top Sol 2oz TOPIC SCH (20:16)
[2019-07-18] VITALS (57 sets, daily range): BP systolic 64–159; BP diastolic 47–102
--- NOTE | 2019-07-18 00:10 | Pulmonolgy Critical Care Note ---
Critical Care - Asmt/Plan Assessment/Plan: Pulmonary CCM Progress Note HPI: Patient is a 68 year old man, jail resident, admitted c/o shortness of breath, cough, noted to have Covid 19 Pneumonia, Respiratory Failure Remains on Ventilator, CXR improving infiltrates ETT adjusted Septic Shock, pressors off currently, on Mitodrine Preserved EF FIO2 40%-50%, P5, adequate O2 sats, remains on ACVC, s/p Tracheostomy, CXR stable, sp PEG Seen earlier on 07/17/2019 ID following Past Medical History: COPD, CKD, Hypertension, Anemia Allergies: No Known Allergies Improving Pulmonary Status on HD Physical Exam Vital Signs Noted Stable on ventilator Deferred Covid-19 Impression: COVID-19 virus infection Pneumonia Respiratory failure on ventilator, wean as tolerated CKD - on HD Hypotension on pressors previously Cardiomegaly Lymphopenia Elevated AST COPD Chronic Kidney Disease - HD H/o Hypertension Worsening anemia Plan: Tolerated Tracheostomy Antibiotics per ID HD Pressors PRN ACVC - wean as tolerated [employer] Medications 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 Monitor cultures/viral studies PPX Hemodialysis per Renal Psychiatry following [facility] - [facility] requested for when available, [facility] - not available as yet Laboratory Tests Noted: CXR: Hypoventilatory exam, interstitial changes, cardiomegaly, improving infiltrates Subjective ROS Limited/Unobtainable: No Constitutional: Denies: fever Respiratory: Reports: dry cough, shortness of breath Gastrointestinal/Abdominal: Reports: diarrhea, other - colace was stopped Psychiatric: Reports: other - refuses labs Allergies: Coded Allergies: No Known Allergies (Unverified , 05/28/19) All Systems: reviewed and negative except above Labs noted Critical Care - Objective Last 24 Hour Vital Signs Date Time Temp Pulse Resp B/P (MAP) Pulse Ox O2 Delivery O2 Flow Rate FiO2 07/17/19 23:44 106 28 100 Mechanical Ventilator 30 106 29 30 07/17/19 19:35 112 33 100 Mechanical Ventilator 30 109 33 30 07/17/19 19:00 112 40 128/82 (97) 100 07/17/19 18:15 116 33 102/73 (83) 100 07/17/19 18:00 110 32 106/82 (90) 100 07/17/19 17:00 99 32 102/64 (77) 100 07/17/19 16:30 120 35 102/69 (80) 100 07/17/19 16:15 127 39 96/77 (83) 100 07/17/19 16:00 Mechanical Ventilator 07/17/19 16:00 30 07/17/19 16:00 98.9 125 31 98/73 (81) 100 07/17/19 16:00 87 07/17/19 15:58 111 29 30 07/17/19 15:00 94 26 115/67 (83) 100 07/17/19 14:00 91 19 112/62 (79) 100 07/17/19 13:15 102 32 97/63 (74) 100 07/17/19 13:00 111 37 115/69 (84) 100 07/17/19 13:00 97/63 07/17/19 12:00 98.0 95 26 109/63 (78) 100 07/17/19 12:00 30 07/17/19 12:00 111/59 07/17/19 12:00 93 07/17/19 12:00 Mechanical Ventilator 07/17/19 11:00 121/73 07/17/19 11:00 96 26 109/63 (78) 100 07/17/19 10:45 94 25 100/62 (75) 100 07/17/19 10:31 85/50 07/17/19 10:30 101 29 100 Mechanical Ventilator 30 98 29 30 07/17/19 10:30 93 26 101/63 (76) 100 07/17/19 10:21 30 07/17/19 10:15 110 14 76/44 (55) 100 07/17/19 10:10 112 26 69/46 (54) 100 07/17/19 10:00 115 27 67/45 (52) 100 07/17/19 09:30 115 32 97/56 (70) 100 07/17/19 09:00 89 26 121/71 (88) 100 07/17/19 08:46 80/45 07/17/19 08:38 70 22 181/94 (123) 96 07/17/19 08:31 94 23 84/60 (68) 99 07/17/19 08:15 93 24 73/58 (63) 99 07/17/19 08:00 Mechanical Ventilator 07/17/19 08:00 30 07/17/19 08:00 97.3 95 24 80/54 (63) 99 07/17/19 08:00 94 6/6/20 07:28 96 26 100 Mechanical Ventilator 30 99 26 30 07/17/19 07:00 100 26 90/25 (46) 100 07/17/19 06:00 95 26 113/82 (92) 100 07/17/19 05:00 108 28 129/88 (102) 100 07/17/19 04:00 97.6 109 24 141/107 (118) 100 07/17/19 04:00 30 07/17/19 04:00 108 07/17/19 04:00 Mechanical Ventilator 07/17/19 03:34 109 28 100 Mechanical Ventilator 30 110 28 30 07/17/19 03:00 112 29 144/95 (111) 100 07/17/19 02:00 110 23 133/91 (105) 100 07/17/19 01:00 113 25 131/96 (108) 100 Accucheck: 226 Critical Care - Subjective ROS Limited/Unobtainable: No Condition: stable IV Access: central FI02: 30 Vent Support Breath Rate: 26 Vent Support Mode: AC Vent Tidal Volume: 500 Sputum Amount: Small PEEP: 5.0 PIP: 24 Tube Feeding Amount: 35 I&O: Intake and Output 07/17/19 07/18/19 19:00 07:00 Intake Total 684.58 ml Output Total 1000 ml Balance -315.42 ml Free Water 100 ml IV Total 104.58 ml Tube Feeding 420 ml Other 60 ml Hemodialysis UF 1000 ml # Bowel Movements 1 ET-Tube: 7.5 ET Position: 24 Arturo Mckeon MD Jul 18, 2019 00:10
[2019-07-18] MEDS: Albuterol 90mcg Inhaler 8gm INH SCH ×6 (03:54→23:44)
[2019-07-18] MEDS: Renvela 2400 mg pkt NG SCH ×3 (05:33→17:42)
[2019-07-18] MEDS: NovoLOG Insulin Flexpen SUBQ SCH ×3 (05:34→17:48)
[2019-07-18 05:37] LABS: HEMATOCRIT 36.4 % (42.0-52.0); HEMOGLOBIN 11.8 G/DL (14.2-18.0); MEAN CORPUSCULAR VOLUME 89 FL (80-99); PLATELET COUNT 404 K/UL (150-450); RED BLOOD COUNT 4.08 M/UL (4.70-6.10); WHITE BLOOD COUNT 18.2 K/UL (4.8-10.8)
[2019-07-18 05:58] LABS: ALANINE AMINOTRANSFERASE 22 U/L (12-78); ALBUMIN 3.1 G/DL (3.4-5.0); ALBUMIN/GLOBULIN RATIO 0.4 (1.0-2.7); ALKALINE PHOSPHATASE 179 U/L (46-116); ANION GAP 18 mmol/L (5-15); ASPARTATE AMINO TRANSFERASE 68 U/L (15-37); BILIRUBIN,TOTAL 0.5 MG/DL (0.2-1.0); BLOOD UREA NITROGEN 55 mg/dL (7-18); CALCIUM 9.7 MG/DL (8.5-10.1); CARBON DIOXIDE 25 MMOL/L (21-32); CHLORIDE 91 MMOL/L (98-107); CREATININE 7.6 MG/DL (0.55-1.30); POTASSIUM 4.7 MMOL/L (3.5-5.1); SODIUM 134 MMOL/L (136-145)
[2019-07-18] MEDS: Midodrine 10mg tab ORAL SCH ×3 (06:00→21:20)
[2019-07-18] MEDS: LORazepam Inj 2mg/ml 1ml IV PRN ×2 (06:25→10:54)
--- NOTE | 2019-07-18 07:06 | Hematology/Onc Progress Note ---
Assessment/Plan Assessment/Plan Assessment and Recs: # Anemia of chronic disease, likely related ot underlying kidney disease has COIVD19++++++ --> hgb trend 9-->8-->7.3-->7.9-->6.8->9.5-->10->8.3-->7.7-->7.1-->8.9->8.8->7.7 -->8.1 ->7.9-->7.7 -->8.2-->8.1 -->7.9-->8.5 -->9->9.2-->9.5-->10.7 -->9.8--> 10.2-->11.8 --> transfuse as needed, hgb goal >7 --> no evidence of hemolysis --> peripheral smear has been reviewed --> epogen started 3 x a week ==>> transfuse 06/08, 06/15 # Leukocytosis likely related to suspected COVID-19 virus infection --> completed plaquenil --> trend smear as needed --> wbc trend: 4-->11-->14.5-->21-->26-->21->24--.28-->23-->19-->16.2-->21--> 11.2 -->12.5-->12.3-->12.4-->18.5-->18.5-->17->13-->18.2 --> pulm is aware --> on abx cefepime/vanc->zosyn/vanc-->dom/vanc-->dom --> pressors as needed --> 06/27 covid 19++ # Thrombocytopenia/Lymphopenia --> likely related to covid19 --> plt 129k-->186k-->251-->285-->384 -->430-->539-->515-->447-->451-->404 --> abx: dom/vanc # Respiratory failure with covid19+ --> s/p vent/trach --> weaning # Possible Pneumonia --> abx completed --> 07/13 cxr: Improved right lung infiltrates. # Cardiomegaly # Transaminitis with Elevated AST # COPD # Chronic Kidney Disease --> per renal hd --> s/p right femoral cath 07/02 # Hypertension # Dvt ppx lovenox # peg Appreciate consultation and ernesto Rn Subjective Allergies: Coded Allergies: No Known Allergies (Unverified , 05/28/19) Subjective 06/01 nv, extremely agitated, not allowing labs draws, no night sweats, cbc ordered 06/02 confused, restraints, on abx and plaquenil, hgb 7.9, nrb 15 L 06/03 is with nonrebreather, but not compliant, remains confused 06/05 no bleeding, labs noted, no major bleeding, otherwise comfortable 06/06 labs reviewed, no bleeding, meds noted, no night sweats, on levo and nonrebreather 06/07 labs noted, no bleeding, meds reviewed, no bleeding, wbc higher 06/08 to get 2 units prbc, no night sweats, meds reviewed 06/09 is on cefepime and vanc, labs noted, ernesto Rn, no bleeding 06/10 no major changes, labs reviewed, wbc 28k, on abx, cefepime 06/12 remains in icu, labs noted, no night sweats or bleeding 06/13 sluggish pupils, remains agitated, per psych, no bleding, on vent, wbc sitll high 06/14 still confused, remains on vent, with ng, running nepro, on pressors 06/15 icu, febrile, non verbal, hgb 7.1, blood pending, completed plaq 06/16 remains in the icu, nonverbal, plan for hd tomorrow, ernesto rn 06/17 in icu, on pressor, nonverbal, on abx, no bleeding 06/19 no bleeding, nonverbal in icu, hgb is 7.7 06/20 on zosyn, tube feeds, vent, labs noted, in icu, nv 06/21 gettng hd as per renal, in icu, nv, no bleeding, tfs 06/22 icu, cxr with slight improvement, cooling blanket, weaning today 06/23 wewaning, in icu, on vent, abx, and pressors as needed, labs noted 06/24 failed weaning, off abx, completed plaquenil, hgb 8.1 06/26 icu, weaning for this am, afebrile, hgb 8 06/27 in icu, remains comotose, weaning started on peep, no night sweats 06/28 weaning today, off abx, restraints, no distress, h/h stable 06/29 covid 19+, failed weaning, no blood transfusion needed 06/30 icu, on vent, labs reviewed, no distress 07/01 in icu, may need trach, remains on hd per renal, labs noted 07/02 s/p right fem cath, failed wean, no new orders, h/h stable 07/03 is somewhat more responsive, on abx, no bleeding, weaning and HD today 07/04 hd as per renal, weaning off vent, no bleeding today 07/05 obtunded, no bleding overnight, with hd for tomorrow noted, vanc 07/08 no events, remains with trach/vent, ernesto Rn, no bleeding, cbc is noted 07/09 no overnight events, peg for friday pending consent 07/10 off pressors, vent, restraints, labs reviewed 07/11 no acute events is on pressors, intubated, agitated still 07/12 is resting comfortably, no bleeding, emds reviewed and noted 07/13 icu, no events, trach, cxr reviewed, 07/14 is onv ent, tachypneic and tachycardic, labs noted 07/15 remains confused, intubated, ernesto Rn, no bleeding 07/17 icu, cxr improving infiltrates, levo gtt, airborne/contact isolation Objective Objective Current Medications Medications (Trade) Dose Ordered Sig/Anthony Route PRN Reason Start Time Stop Time Status Last Admin Dose Admin Acetaminophen (Tylenol) 650 mg Q4H PRN NG For Pain 07/11/19 08:00 08/10/19 07:59 07/17/19 14:30 Albuterol Sulfate (Proventil MDI) 2 puff Q4HRT INH 06/06/19 23:00 08/30/19 18:59 07/18/19 03:54 Chlorhexidine Gluconate (Michelle-Hex 2%) 1 applic DAILY@1999 TOPIC 06/07/19 20:00 09/05/19 19:59 07/17/19 20:16 Dextrose (Dextrose 50%) 25 ml Q30M PRN IV Hypoglycemia 06/20/19 19:30 09/18/19 19:29 Dextrose (Dextrose 50%) 50 ml Q30M PRN IV Hypoglycemia 06/20/19 19:30 09/18/19 19:29 Dopamine HCl/ Dextrose 250 ml @ 0 mls/hr Q24H PRN IV For hypotension 06/13/19 08:15 09/11/19 08:14 07/17/19 08:46 Enoxaparin Sodium (Lovenox) 30 mg DAILY SUBQ 06/07/19 09:00 08/27/19 08:59 07/17/19 08:40 Epoetin Aftab (Epoetin Aftab(ESRD on dialysis)) 10,000 unit SUBQ 06/07/19 21:00 08/31/19 20:59 07/16/19 20:54 Haloperidol Lactate 5 mg/ Dextrose 56 ml @ 224 mls/hr Q6H PRN IVPB Agitation 07/11/19 15:00 08/25/19 14:59 07/15/19 02:36 Hydralazine HCl (Apresoline) 10 mg Q4H PRN IV Blood pressure over 160 systol 06/07/19 10:15 09/05/19 10:14 Hydromorphone HCl (Dilaudid) 0.5 mg Q3H PRN IVP For Pain 07/11/19 15:00 07/18/19 14:59 07/15/19 20:31 Insulin Aspart (NovoLOG) EVERY 6 HOURS SUBQ 06/21/19 00:00 09/19/19 00:00 07/18/19 05:34 Lorazepam (Ativan 2mg/ml 1ml) 0.5 mg Q4H PRN IV For Anxiety 07/11/19 15:00 07/18/19 14:59 07/18/19 06:25 Metoclopramide HCl (Reglan) 5 mg Q8H PRN IVP Nausea & Vomiting 06/18/19 12:00 07/18/19 11:59 06/19/19 00:50 Midodrine (Pro-Amatine) 10 mg Q8HR ORAL 07/17/19 14:00 10/15/19 10:29 07/17/19 14:30 Norepinephrine Bitartrate 8 mg/ Dextrose 283 ml @ 0 mls/hr Q24H IV 06/23/19 23:00 07/23/19 22:59 07/17/19 10:31 Pantoprazole (Protonix) 40 mg DAILY IVP 06/19/19 09:00 07/19/19 08:59 07/17/19 08:38 Sevelamer Carbonate (Renvela) 2,400 mg Q6HR NG 07/14/19 12:00 10/12/19 13:59 07/18/19 05:33 Last 24 Hour Vital Signs Date Time Temp Pulse Resp B/P (MAP) Pulse Ox O2 Delivery O2 Flow Rate FiO2 07/18/19 06:50 77/54 07/18/19 06:30 126 35 82/60 (67) 100 07/18/19 06:00 97.9 136 35 104/80 (88) 100 07/18/19 05:30 136 46 95/68 (77) 100 07/18/19 05:00 102/64 07/18/19 05:00 144 45 111/95 (100) 100 07/18/19 04:30 137 41 144/102 (116) 100 07/18/19 04:00 Mechanical Ventilator 07/18/19 04:00 140 07/18/19 04:00 144/92 07/18/19 04:00 98.9 104 28 144/92 (109) 100 07/18/19 04:00 30 07/18/19 03:54 94 26 100 Mechanical Ventilator 30 99 28 30 07/18/19 03:30 98 25 112/74 (87) 100 07/18/19 03:00 108/66 07/18/19 03:00 103 22 108/66 (80) 100 07/18/19 02:45 104 20 98/76 (83) 100 07/18/19 02:30 105 27 87/64 (72) 100 07/18/19 02:15 124 38 108/81 (90) 100 07/18/19 02:00 102/76 07/18/19 02:00 119 36 102/76 (85) 100 07/18/19 01:45 113 34 96/71 (79) 100 07/18/19 01:30 120 31 159/89 (112) 95 07/18/19 01:00 104 30 131/80 (97) 100 07/18/19 01:00 131/80 07/18/19 00:45 91 25 130/70 (90) 100 07/18/19 00:30 92 22 131/81 (98) 100 07/18/19 00:15 92 25 110/63 (79) 100 07/18/19 00:00 30 07/18/19 00:00 98.3 98 26 100/61 (74) 100 07/18/19 00:00 100/61 07/18/19 00:00 Mechanical Ventilator 07/18/19 00:00 91 07/17/19 23:44 106 28 100 Mechanical Ventilator 30 106 29 30 07/17/19 23:30 113 31 119/67 (84) 100 07/17/19 23:00 80 26 115/79 (91) 100 07/17/19 23:00 115/79 07/17/19 22:30 81 26 112/72 (85) 100 07/17/19 22:00 114/74 07/17/19 22:00 81 26 114/74 (87) 100 07/17/19 21:30 81 25 118/74 (89) 100 07/17/19 21:00 81 27 112/76 (88) 100 07/17/19 21:00 112/76 07/17/19 20:30 81 26 120/83 (95) 100 07/17/19 20:00 98.6 88 26 113/70 (84) 100 07/17/19 20:00 30 07/17/19 20:00 113/70 07/17/19 20:00 116 07/17/19 20:00 Mechanical Ventilator 07/17/19 19:35 112 33 100 Mechanical Ventilator 30 109 33 30 07/17/19 19:30 110 33 116/68 (84) 100 07/17/19 19:00 112 40 128/82 (97) 100 07/17/19 18:15 116 33 102/73 (83) 100 07/17/19 18:00 110 32 106/82 (90) 100 07/17/19 17:00 99 32 102/64 (77) 100 07/17/19 16:30 120 35 102/69 (80) 100 07/17/19 16:15 127 39 96/77 (83) 100 07/17/19 16:00 Mechanical Ventilator 07/17/19 16:00 30 07/17/19 16:00 98.9 125 31 98/73 (81) 100 07/17/19 16:00 87 07/17/19 15:58 111 29 30 07/17/19 15:00 94 26 115/67 (83) 100 07/17/19 14:00 91 19 112/62 (79) 100 07/17/19 13:15 102 32 97/63 (74) 100 07/17/19 13:00 111 37 115/69 (84) 100 07/17/19 13:00 97/63 07/17/19 12:00 98.0 95 26 109/63 (78) 100 07/17/19 12:00 30 07/17/19 12:00 111/59 07/17/19 12:00 93 07/17/19 12:00 Mechanical Ventilator 07/17/19 11:00 121/73 07/17/19 11:00 96 26 109/63 (78) 100 07/17/19 10:45 94 25 100/62 (75) 100 07/17/19 10:31 85/50 07/17/19 10:30 101 29 100 Mechanical Ventilator 30 98 29 30 07/17/19 10:30 93 26 101/63 (76) 100 07/17/19 10:21 30 07/17/19 10:15 110 14 76/44 (55) 100 07/17/19 10:10 112 26 69/46 (54) 100 07/17/19 10:00 115 27 67/45 (52) 100 07/17/19 09:30 115 32 97/56 (70) 100 07/17/19 09:00 89 26 121/71 (88) 100 07/17/19 08:46 80/45 07/17/19 08:38 70 22 181/94 (123) 96 07/17/19 08:31 94 23 84/60 (68) 99 07/17/19 08:15 93 24 73/58 (63) 99 07/17/19 08:00 Mechanical Ventilator 07/17/19 08:00 30 07/17/19 08:00 97.3 95 24 80/54 (63) 99 07/17/19 08:00 94 07/17/19 07:28 96 26 100 Mechanical Ventilator 30 99 26 30 07/17/19 07:00 100 26 90/25 (46) 100 07/17/19 06:00 95 26 113/82 (92) 100 07/17/19 05:00 108 28 129/88 (102) 100 07/17/19 04:00 97.6 109 24 141/107 (118) 100 07/17/19 04:00 30 07/17/19 04:00 108 07/17/19 04:00 Mechanical Ventilator 07/17/19 03:34 109 28 100 Mechanical Ventilator 30 110 28 30 07/17/19 03:00 112 29 144/95 (111) 100 07/17/19 02:00 110 23 133/91 (105) 100 07/17/19 01:00 113 25 131/96 (108) 100 07/17/19 00:00 30 07/17/19 00:00 98.1 114 25 134/95 (108) 100 07/17/19 00:00 114 07/17/19 00:00 Mechanical Ventilator 07/16/19 23:25 117 26 100 Mechanical Ventilator 30 117 27 30 07/16/19 23:00 132/85 07/16/19 23:00 119 25 132/85 (101) 100 07/16/19 22:00 115 24 143/91 (108) 100 07/16/19 21:00 117 23 136/90 (105) 100 07/16/19 20:00 97.9 114 21 130/96 (107) 100 07/16/19 20:00 Mechanical Ventilator 07/16/19 20:00 30 07/16/19 20:00 114 07/16/19 19:58 114 28 100 Mechanical Ventilator 30 117 29 30 07/16/19 19:00 120 23 129/78 (95) 100 07/16/19 18:00 118 23 139/90 (106) 100 07/16/19 17:00 116 25 147/86 (106) 100 07/16/19 16:00 130 07/16/19 16:00 97.7 116 24 151/94 (113) 100 07/16/19 16:00 30 07/16/19 16:00 Mechanical Ventilator 07/16/19 15:23 115 27 100 Mechanical Ventilator 30 115 29 30 07/16/19 15:00 117 24 135/99 (111) 100 07/16/19 14:00 112 20 150/82 (104) 100 07/16/19 13:00 113 21 152/95 (114) 100 07/16/19 12:00 97.6 113 24 147/91 (109) 100 07/16/19 12:00 110 07/16/19 12:00 Mechanical Ventilator 07/16/19 12:00 30 07/16/19 11:03 108 22 100 Mechanical Ventilator 30 109 21 30 07/16/19 11:00 108 23 135/86 (102) 100 07/16/19 10:00 109 21 140/84 (102) 100 07/16/19 09:00 111 22 137/82 (100) 100 07/16/19 08:02 100 07/16/19 08:00 113 07/16/19 08:00 Mechanical Ventilator 07/16/19 08:00 98.1 112 24 125/88 (100) 100 07/16/19 08:00 30 Intake and Output 07/17/19 07/18/19 19:00 07:00 Intake Total 684.58 ml 703.56 ml Output Total 1000 ml Balance -315.42 ml 703.56 ml Free Water 100 ml 240 ml IV Total 104.58 ml 148.56 ml Tube Feeding 420 ml 195 ml Other 60 ml 120 ml Hemodialysis UF 1000 ml # Bowel Movements 1 4 Labs Test 07/16/19 04:40 07/16/19 04:45 07/17/19 05:00 07/18/19 04:15 Phosphorus Level 6.0 MG/DL (2.5-4.9) 6.1 MG/DL (2.5-4.9) White Blood Count 12.7 K/UL (4.8-10.8) 15.0 K/UL (4.8-10.8) 18.2 K/UL (4.8-10.8) Red Blood Count 3.55 M/UL (4.70-6.10) 3.80 M/UL (4.70-6.10) 4.08 M/UL (4.70-6.10) Hemoglobin 10.2 G/DL (14.2-18.0) 11.0 G/DL (14.2-18.0) 11.8 G/DL (14.2-18.0) Hematocrit 31.9 % (42.0-52.0) 34.1 % (42.0-52.0) 36.4 % (42.0-52.0) Mean Corpuscular Volume 90 FL (80-99) 90 FL (80-99) 89 FL (80-99) Mean Corpuscular Hemoglobin 28.8 PG (27.0-31.0) 29.0 PG (27.0-31.0) 28.9 PG (27.0-31.0) Mean Corpuscular Hemoglobin Concent 31.9 G/DL (32.0-36.0) 32.3 G/DL (32.0-36.0) 32.3 G/DL (32.0-36.0) Red Cell Distribution Width 15.8 % (11.6-14.8) 16.1 % (11.6-14.8) 16.0 % (11.6-14.8) Platelet Count 380 K/UL (150-450) 408 K/UL (150-450) 404 K/UL (150-450) Mean Platelet Volume 7.0 FL (6.5-10.1) 6.2 FL (6.5-10.1) 7.0 FL (6.5-10.1) Neutrophils (%) (Auto) 82.8 % (45.0-75.0) 82.7 % (45.0-75.0) % (45.0-75.0) Lymphocytes (%) (Auto) 8.9 % (20.0-45.0) 7.3 % (20.0-45.0) % (20.0-45.0) Monocytes (%) (Auto) 6.4 % (1.0-10.0) 7.6 % (1.0-10.0) % (1.0-10.0) Eosinophils (%) (Auto) 1.4 % (0.0-3.0) 1.6 % (0.0-3.0) % (0.0-3.0) Basophils (%) (Auto) 0.5 % (0.0-2.0) 0.8 % (0.0-2.0) % (0.0-2.0) Sodium Level 136 MMOL/L (136-145) 133 MMOL/L (136-145) 134 MMOL/L (136-145) Potassium Level 4.1 MMOL/L (3.5-5.1) 4.4 MMOL/L (3.5-5.1) 4.7 MMOL/L (3.5-5.1) Chloride Level 95 MMOL/L (98-107) 92 MMOL/L (98-107) 91 MMOL/L (98-107) Carbon Dioxide Level 20 MMOL/L (21-32) 20 MMOL/L (21-32) 25 MMOL/L (21-32) Anion Gap 21 mmol/L (5-15) 21 mmol/L (5-15) 18 mmol/L (5-15) Blood Urea Nitrogen 60 mg/dL (7-18) 75 mg/dL (7-18) 55 mg/dL (7-18) Creatinine 8.3 MG/DL (0.55-1.30) 9.3 MG/DL (0.55-1.30) 7.6 MG/DL (0.55-1.30) Estimat Glomerular Filtration Rate 6.5 mL/min (>60) 5.7 mL/min (>60) 7.2 mL/min (>60) Glucose Level 189 MG/DL (74-106) 161 MG/DL (74-106) 231 MG/DL (74-106) Calcium Level 9.6 MG/DL (8.5-10.1) 10.0 MG/DL (8.5-10.1) 9.7 MG/DL (8.5-10.1) Total Bilirubin 0.6 MG/DL (0.2-1.0) 0.4 MG/DL (0.2-1.0) 0.5 MG/DL (0.2-1.0) Aspartate Amino Transf (AST/SGOT) 30 U/L (15-37) 49 U/L (15-37) 68 U/L (15-37) Alanine Aminotransferase (ALT/SGPT) 9 U/L (12-78) 14 U/L (12-78) 22 U/L (12-78) Alkaline Phosphatase 136 U/L (46-116) 170 U/L (46-116) 179 U/L (46-116) Total Protein 9.5 G/DL (6.4-8.2) 9.8 G/DL (6.4-8.2) 10.0 G/DL (6.4-8.2) Albumin 2.9 G/DL (3.4-5.0) 3.0 G/DL (3.4-5.0) 3.1 G/DL (3.4-5.0) Globulin 6.6 g/dL 6.8 g/dL 6.9 g/dL Albumin/Globulin Ratio 0.4 (1.0-2.7) 0.4 (1.0-2.7) 0.4 (1.0-2.7) Uric Acid 6.7 MG/DL (2.6-7.2) Magnesium Level 3.0 MG/DL (1.8-2.4) C-Reactive Protein, Quantitative 7.5 mg/dL (0.00-0.90) Pro-B-Type Natriuretic Peptide 57417 pg/mL (0-125) Height (Feet): 6 Height (Inches): 1.00 Weight (Pounds): 186 Objective General: nv, confused, sedated Heent: bilateral eye normal inspection, bilateral eye PERRL ++Ng Respiratory: normal breath sounds, no respiratory distress, intubated/vent +++ trach+++ Cardiovascular: regular rate, rhythm, no edema Gastrointestinal: normal inspection, soft, non-distended, peg+ Rectal: deferred Musculoskeletal: normal range of motion, non-tender, R fem cath++ Neurologic: alert, motor strength/tone normal, sensory intact, responsive, speech normal Skin: Decubitus/Ulcer - See RN skin exam. : jamaal+ Greg Cabral MD Jul 18, 2019 07:06
[2019-07-18] MEDS: Pantoprazole Inj IVP SCH (09:07)
[2019-07-18] MEDS: Acetaminophen 650mg/20.3ml NG PRN (09:07)
[2019-07-18] MEDS: Enoxaparin 30mg Inj SUBQ SCH (09:08)
--- NOTE | 2019-07-18 10:12 | Nephrology Progress Note ---
Assessment/Plan Problem List: (1) CASSANDRA (acute kidney injury) (2) Anemia in chronic kidney disease (CKD) (3) HTN (hypertension) (4) COVID-19 Assessment Acute renal failure most likely superimposed on chronic kidney disease Suspected COVID-19 virus infection Possible Pneumonia, lymphopenia, elevated AST Cardiomegaly, possible CHF COPD Hypertension Anemia, most likely related to chronic kidney disease Plan July 17: Dialyzed yesterday. Stable from renal standpoint of view. Remains full code. Status post trach on vent. Status post PEG. Continue per consultants. July 16: Dialysis today. Will resume Midodrin to prevent hypotension. Patient remains full code. July 15: Dialyzed yesterday, due for dialysis tomorrow. Labs and medication list reviewed. Continue per consultants. Patient remains full code. COVID-19 detected again. July 14: Patient currently on dialysis. This is continuation of dialysis from yesterday as yesterday's dialysis was cut short due to catheter malfunction. Labs and medication reviewed. Continue per consultants. July 13: Patient currently on hemodialysis. The dialysis catheter which is a intrajugular Kamlesh has poor flow. Will try TPA. Continue per consultants. July 12: Due for PEG today. Due for dialysis tomorrow. Continue per consultants. Discussed with RN. July 11: Plan for dialysis today. Discussed with RN. Data reviewed. July 10: Plan for dialysis tomorrow July 11. Waiting for consent to proceed with PEG. Continue per consultants. Medication reviewed. Labs reviewed. Discussed with RN. July 09: Dialyzed yesterday. Labs reviewed. Medication reviewed. Next hemodialysis July 11. July 08: Patient has tracheostomy now. Connected to ventilator. Due for dialysis today. Continue per consultants. Discussed with SHANIQUE Romero. July 07: Patient is due for tracheostomy today. Patient was last dialyzed July 05. Will order dialysis for tomorrow. July 06: Patient is intubated on ventilator however the plan is to extubate today. Patient was dialysis yesterday July 05. The dialysis time was cut short due to patient's respiratory distress. Only 1 L was removed during dialysis yesterday. Today's lab reviewed. Continue per consultants. Will arrange for dialysis as needed. July 05: Patient due for dialysis today. Remains intubated. Will schedule permacath placement in a.m. blood cultures on July 04 are negative. July 04: Patient was dialyzed yesterday. Due for dialysis tomorrow. Continues to be intubated. After tomorrow's dialysis will order a permacath. July 03: Dialysis is about to be started now Continues to be intubated Will plan to remove the femoral dialysis catheter and exchanged for a new temporary catheter per ID recommendation We will check surveillance blood culture tomorrow July 02: Patient was dialyzed yesterday and due for dialysis tomorrow Stable from renal standpoint W on dialysis Continue per consultants, weaning....... etc. July 01: Dialysis today Other status unchanged June 30: Due for dialysis tomorrow Remains intubated on ventilator Labs and medication reviewed Discussed with RN Stable from renal standpoint of view June 29: Dialyzed yesterday Due for dialysis tomorrow Stable from renal standpoint to view Keeps failing weaning process June 28: Patient due for dialysis today Stable from renal standpoint to view Continue per consultants June 27: Labs reviewed Due due for dialysis June 28 Discussed with SHANIQUE Silverman per consultants Remains intubated on ventilator June 26 Labs reviewed Dialyzed yesterday Started on weaning today Continue to monitor renal parameters June 16: On dialysis now Potassium supplement implemented Continue per consultants Next dialysis June 27June 15: Status unchanged Dialyzed yesterday will dialyze again tomorrow Potassium supplements given Discussed with RN June 14: Due dialysis today Status: Remains intubated on ventilator June 22: Status unchanged Dialyzed yesterday and duefordialysistomorrow Serum sodium stable today June 21 Remains intubated on ventilator Due dialysis today Emphasized high sodium bath for dialysis June 20: Remains intubated on ventilator Dialyzed June 19 next dialysis June 21 Serum sodium 128, will give 250 cc 3% saline Remains full code Discussed with RN Iron panel ordered June 19: Discussed with RN. Patient due for dialysis today. Continue pulmonary support. Remains full code. June 18: Patient dialyzed yesterday June 17 Serum sodium improved but still low Arrange for dialysis tomorrow June 19 Continue per consultants June 17: Due for dialysis today Today's lab reviewed, low serum sodium noted, Emphasized on high sodium bath to dialysis nurse Discussed with SHANIQUE Yuen June 7: Dialyzed yesterday Remains intubated Labs reviewed, serum sodium 131 Plan to dialyze tomorrow June 17 with high sodium bath Discussed with SHANIQUE Yuen June 6: Due for dialysis today Labs reviewed Discussed with RN Transfuse 1 unit of packed RBCs today for low hemoglobin of 7.1 June 5: Blood pressure well maintained Receive dialysis June 13 next hemodialysis June 15June 4: Discussed with RN in ICU Patient did not receive proper dialysis yesterday due to dialysis catheter malfunction Catheter to be adjusted today and dialyzed to be resumed today Continue per consultants Positive for COVID 28 June 2: Patient now intubated on mechanical ventilation Discussed with RN Alpa, today June 12 Patient received dialysis yesterday June 10 next hemodialysis June 12 Blood pressure better maintained Today's labs reviewed Continue per consultants Previously patient received dialysis last evening June 05, next dialysis June 07 which was incomplete due to patient's hypotension Will start on midodrine for blood pressure support. Meanwhile continue other pressors as needed Previously Patient is doing poorly, septic, white blood cells are rising, Hypotension somewhat improved We will keep n.p.o. , NG tube for medications, and change medication to IV as needed Patient remains full code Monitor vancomycin level Previously: Patient pulled out his femoral catheter yesterday June 03 which was reinserted by Dr. Mast Patient scheduled for dialysis again June 04, which again was not done due to dialysis nurse citing catheter malfunction Meanwhile continue management per ID, pulmonary , and psych. Meanwhile white blood cell count is rising. Patient blood pressure borderline low. Will check ABG Previously May 31 : I believe patient need dialysis treatment He however needs to competency assessment if can make decisions or not I will communicate with Dr. Mulligan Previously: Per pulmonary and ID advice Adjust blood pressure medication Renal diet Anemia work-up 2D echocardiogram refused Kidney ultrasound refused Jules catheter Urine studies Per orders Subjective ROS Limited/Unobtainable: Yes Objective Objective Last 24 Hour Vital Signs Date Time Temp Pulse Resp B/P (MAP) Pulse Ox O2 Delivery O2 Flow Rate FiO2 07/18/19 08:15 134 33 75/56 (62) 07/18/19 08:00 Mechanical Ventilator 07/18/19 08:00 128 32 64/47 (53) 07/18/19 08:00 30 07/18/19 07:51 120 28 100 Mechanical Ventilator 30 121 29 30 07/18/19 07:00 130 44 103/67 (79) 100 07/18/19 06:50 77/54 07/18/19 06:30 126 35 82/60 (67) 100 07/18/19 06:00 97.9 136 35 104/80 (88) 100 07/18/19 05:30 136 46 95/68 (77) 100 07/18/19 05:00 102/64 07/18/19 05:00 144 45 111/95 (100) 100 07/18/19 04:30 137 41 144/102 (116) 100 07/18/19 04:00 Mechanical Ventilator 07/18/19 04:00 140 07/18/19 04:00 144/92 07/18/19 04:00 98.9 104 28 144/92 (109) 100 07/18/19 04:00 30 07/18/19 03:54 94 26 100 Mechanical Ventilator 30 99 28 30 07/18/19 03:30 98 25 112/74 (87) 100 07/18/19 03:00 108/66 07/18/19 03:00 103 22 108/66 (80) 100 07/18/19 02:45 104 20 98/76 (83) 100 07/18/19 02:30 105 27 87/64 (72) 100 07/18/19 02:15 124 38 108/81 (90) 100 07/18/19 02:00 102/76 07/18/19 02:00 119 36 102/76 (85) 100 07/18/19 01:45 113 34 96/71 (79) 100 07/18/19 01:30 120 31 159/89 (112) 95 07/18/19 01:00 104 30 131/80 (97) 100 07/18/19 01:00 131/80 07/18/19 00:45 91 25 130/70 (90) 100 07/18/19 00:30 92 22 131/81 (98) 100 07/18/19 00:15 92 25 110/63 (79) 100 07/18/19 00:00 30 07/18/19 00:00 98.3 98 26 100/61 (74) 100 07/18/19 00:00 100/61 07/18/19 00:00 Mechanical Ventilator 07/18/19 00:00 91 07/17/19 23:44 106 28 100 Mechanical Ventilator 30 106 29 30 07/17/19 23:30 113 31 119/67 (84) 100 07/17/19 23:00 80 26 115/79 (91) 100 07/17/19 23:00 115/79 07/17/19 22:30 81 26 112/72 (85) 100 07/17/19 22:00 114/74 07/17/19 22:00 81 26 114/74 (87) 100 07/17/19 21:30 81 25 118/74 (89) 100 07/17/19 21:00 81 27 112/76 (88) 100 07/17/19 21:00 112/76 07/17/19 20:30 81 26 120/83 (95) 100 07/17/19 20:00 98.6 88 26 113/70 (84) 100 07/17/19 20:00 30 07/17/19 20:00 113/70 07/17/19 20:00 116 07/17/19 20:00 Mechanical Ventilator 07/17/19 19:35 112 33 100 Mechanical Ventilator 30 109 33 30 07/17/19 19:30 110 33 116/68 (84) 100 07/17/19 19:00 112 40 128/82 (97) 100 07/17/19 18:15 116 33 102/73 (83) 100 07/17/19 18:00 110 32 106/82 (90) 100 07/17/19 17:00 99 32 102/64 (77) 100 07/17/19 16:30 120 35 102/69 (80) 100 07/17/19 16:15 127 39 96/77 (83) 100 07/17/19 16:00 Mechanical Ventilator 07/17/19 16:00 30 07/17/19 16:00 98.9 125 31 98/73 (81) 100 07/17/19 16:00 87 07/17/19 15:58 111 29 30 07/17/19 15:00 94 26 115/67 (83) 100 07/17/19 14:00 91 19 112/62 (79) 100 07/17/19 13:15 102 32 97/63 (74) 100 07/17/19 13:00 111 37 115/69 (84) 100 07/17/19 13:00 97/63 07/17/19 12:00 98.0 95 26 109/63 (78) 100 07/17/19 12:00 30 07/17/19 12:00 111/59 07/17/19 12:00 93 07/17/19 12:00 Mechanical Ventilator 07/17/19 11:00 121/73 07/17/19 11:00 96 26 109/63 (78) 100 07/17/19 10:45 94 25 100/62 (75) 100 07/17/19 10:31 85/50 07/17/19 10:30 101 29 100 Mechanical Ventilator 30 98 29 30 07/17/19 10:30 93 26 101/63 (76) 100 07/17/19 10:21 30 07/17/19 10:15 110 14 76/44 (55) 100 Intake and Output 07/17/19 07/18/19 19:00 07:00 Intake Total 684.58 ml 738.56 ml Output Total 1000 ml Balance -315.42 ml 738.56 ml Free Water 100 ml 240 ml IV Total 104.58 ml 148.56 ml Tube Feeding 420 ml 230 ml Other 60 ml 120 ml Hemodialysis UF 1000 ml # Bowel Movements 2 4 Laboratory Tests 07/18/19 04:15: White Blood Count 18.2H, Red Blood Count 4.08L, Hemoglobin 11.8L, Hematocrit 36.4L, Mean Corpuscular Volume 89, Mean Corpuscular Hemoglobin 28.9, Mean Corpuscular Hemoglobin Concent 32.3, Red Cell Distribution Width 16.0H, Platelet Count 404, Mean Platelet Volume 7.0, Neutrophils (%) (Auto) , Lymphocytes (%) (Auto) , Monocytes (%) (Auto) , Eosinophils (%) (Auto) , Basophils (%) (Auto) , Differential Total Cells Counted 100, Neutrophils % ( Manual) 81H, Lymphocytes % (Manual) 8L, Monocytes % (Manual) 10, Eosinophils % ( Manual) 1, Basophils % (Manual) 0, Band Neutrophils 0, Platelet Estimate Adequate, Platelet Morphology Normal, Anisocytosis 1+, Sodium Level 134L, Potassium Level 4.7, Chloride Level 91L, Carbon Dioxide Level 25, Anion Gap 18H , Blood Urea Nitrogen 55H, Creatinine 7.6H, Estimat Glomerular Filtration Rate 7.2, Glucose Level 231H, Calcium Level 9.7, Phosphorus Level 5.2H, Total Bilirubin 0.5, Aspartate Amino Transf (AST/SGOT) 68H, Alanine Aminotransferase ( ALT/SGPT) 22, Alkaline Phosphatase 179H, Total Protein 10.0H, Albumin 3.1L, Globulin 6.9, Albumin/Globulin Ratio 0.4L Height (Feet): 6 Height (Inches): 1.00 Weight (Pounds): 186 General Appearance: no apparent distress EENT: other (Trached and vent) Cardiovascular: tachycardia Respiratory/Chest: decreased breath sounds Abdomen: soft, other (PEG in place) Objective No change Mic Cole MD Jul 18, 2019 10:12
[2019-07-18] MEDS: D5W IV SCH ×6 (10:54→21:28)
[2019-07-18] MEDS: NOREPINEPHRINE BITARTRATE IV SCH ×6 (10:54→21:28)
--- NOTE | 2019-07-18 11:24 | Infectious Diseases Prog Note ---
Assessment/Plan Assessment/Plan IMPRESSION: 1. COVID19 pneumonia Positive: 05/27, 05/31 , 06/05, 06/09 ,06/17, 06/19, 06/23, 06/27, 07/03, 07/15 2. MRSA carrier. 3. Chronic kidney disease , end-stage renal disease. 4. COPD. 5. Hypertension. 6. Anemia. 7. Hypothyroidism. 8. Hyperlipidemia. 9. Major depression. 10. Leukocytosis 11. Hypotension 12. Hepatitis C 13. Hyperuricemia 14. Diarrhea 15. septic shock 16. Leukocytosis worsening 17. Bacteremia with Staph epidermidis Subsequent cultures negative RECOMMENDATIONS: CXR Sputum culture Start on Levaquin Finished hydroxychloroquine. Will f/u COVID19 test Subjective ROS Limited/Unobtainable: Yes Constitutional: Denies: fever Cardiovascular: Reports: other - on Levophed 12 jermaine Neurologic: Reports: confusion, other - on restraint Allergies: Coded Allergies: No Known Allergies (Unverified , 05/28/19) Objective Vital Signs Last 24 Hour Vital Signs Date Time Temp Pulse Resp B/P (MAP) Pulse Ox O2 Delivery O2 Flow Rate FiO2 07/18/19 10:54 102/56 07/18/19 10:15 122 28 96/66 (76) 100 07/18/19 10:00 126 29 87/63 (71) 100 07/18/19 09:52 128 35 96/57 (70) 100 07/18/19 09:45 131 29 86/63 (71) 100 07/18/19 09:30 140 48 113/94 (100) 100 07/18/19 09:15 138 46 115/80 (92) 100 07/18/19 09:00 98.0 129 51 113/86 (95) 100 07/18/19 08:15 134 33 75/56 (62) 07/18/19 08:00 Mechanical Ventilator 07/18/19 08:00 128 32 64/47 (53) 07/18/19 08:00 30 07/18/19 08:00 132 07/18/19 07:51 120 28 100 Mechanical Ventilator 30 121 29 30 07/18/19 07:00 130 44 103/67 (79) 100 07/18/19 06:50 77/54 07/18/19 06:30 126 35 82/60 (67) 100 07/18/19 06:00 97.9 136 35 104/80 (88) 100 07/18/19 05:30 136 46 95/68 (77) 100 07/18/19 05:00 102/64 07/18/19 05:00 144 45 111/95 (100) 100 07/18/19 04:30 137 41 144/102 (116) 100 07/18/19 04:00 Mechanical Ventilator 07/18/19 04:00 140 07/18/19 04:00 144/92 07/18/19 04:00 98.9 104 28 144/92 (109) 100 07/18/19 04:00 30 07/18/19 03:54 94 26 100 Mechanical Ventilator 30 99 28 30 07/18/19 03:30 98 25 112/74 (87) 100 07/18/19 03:00 108/66 07/18/19 03:00 103 22 108/66 (80) 100 07/18/19 02:45 104 20 98/76 (83) 100 07/18/19 02:30 105 27 87/64 (72) 100 07/18/19 02:15 124 38 108/81 (90) 100 07/18/19 02:00 102/76 07/18/19 02:00 119 36 102/76 (85) 100 07/18/19 01:45 113 34 96/71 (79) 100 07/18/19 01:30 120 31 159/89 (112) 95 07/18/19 01:00 104 30 131/80 (97) 100 07/18/19 01:00 131/80 07/18/19 00:45 91 25 130/70 (90) 100 07/18/19 00:30 92 22 131/81 (98) 100 07/18/19 00:15 92 25 110/63 (79) 100 07/18/19 00:00 30 07/18/19 00:00 98.3 98 26 100/61 (74) 100 07/18/19 00:00 100/61 07/18/19 00:00 Mechanical Ventilator 07/18/19 00:00 91 07/17/19 23:44 106 28 100 Mechanical Ventilator 30 106 29 30 07/17/19 23:30 113 31 119/67 (84) 100 07/17/19 23:00 80 26 115/79 (91) 100 07/17/19 23:00 115/79 07/17/19 22:30 81 26 112/72 (85) 100 07/17/19 22:00 114/74 07/17/19 22:00 81 26 114/74 (87) 100 07/17/19 21:30 81 25 118/74 (89) 100 07/17/19 21:00 81 27 112/76 (88) 100 07/17/19 21:00 112/76 07/17/19 20:30 81 26 120/83 (95) 100 07/17/19 20:00 98.6 88 26 113/70 (84) 100 07/17/19 20:00 30 07/17/19 20:00 113/70 07/17/19 20:00 116 07/17/19 20:00 Mechanical Ventilator 07/17/19 19:35 112 33 100 Mechanical Ventilator 30 109 33 30 07/17/19 19:30 110 33 116/68 (84) 100 07/17/19 19:00 112 40 128/82 (97) 100 07/17/19 18:15 116 33 102/73 (83) 100 07/17/19 18:00 110 32 106/82 (90) 100 07/17/19 17:00 99 32 102/64 (77) 100 07/17/19 16:30 120 35 102/69 (80) 100 07/17/19 16:15 127 39 96/77 (83) 100 07/17/19 16:00 Mechanical Ventilator 07/17/19 16:00 30 07/17/19 16:00 98.9 125 31 98/73 (81) 100 07/17/19 16:00 87 07/17/19 15:58 111 29 30 07/17/19 15:00 94 26 115/67 (83) 100 07/17/19 14:00 91 19 112/62 (79) 100 07/17/19 13:15 102 32 97/63 (74) 100 07/17/19 13:00 111 37 115/69 (84) 100 07/17/19 13:00 97/63 07/17/19 12:00 98.0 95 26 109/63 (78) 100 07/17/19 12:00 30 07/17/19 12:00 111/59 07/17/19 12:00 93 07/17/19 12:00 Mechanical Ventilator Height (Feet): 6 Height (Inches): 1.00 Weight (Pounds): 186 HEENT: status post trach Respiratory/Chest: other - on ventilator Cardiovascular: tachycardia, other - HD & central line Abdomen: soft, non tender, other - GT feeding Extremities: no edema Neurologic/Psychiatric: disoriented Microbiology Date/Time Source Procedure Growth Status 07/16/19 12:00 Nasopharynx Coronavirus COVID-19 PCR ([facility]) - Final Complete Laboratory Tests Test 07/18/19 04:15 White Blood Count 18.2 K/UL (4.8-10.8) H Red Blood Count 4.08 M/UL (4.70-6.10) L Hemoglobin 11.8 G/DL (14.2-18.0) L Hematocrit 36.4 % (42.0-52.0) L Mean Corpuscular Volume 89 FL (80-99) Mean Corpuscular Hemoglobin 28.9 PG (27.0-31.0) Mean Corpuscular Hemoglobin Concent 32.3 G/DL (32.0-36.0) Red Cell Distribution Width 16.0 % (11.6-14.8) H Platelet Count 404 K/UL (150-450) Mean Platelet Volume 7.0 FL (6.5-10.1) Neutrophils (%) (Auto) % (45.0-75.0) Lymphocytes (%) (Auto) % (20.0-45.0) Monocytes (%) (Auto) % (1.0-10.0) Eosinophils (%) (Auto) % (0.0-3.0) Basophils (%) (Auto) % (0.0-2.0) Differential Total Cells Counted 100 Neutrophils % (Manual) 81 % (45-75) H Lymphocytes % (Manual) 8 % (20-45) L Monocytes % (Manual) 10 % (1-10) Eosinophils % (Manual) 1 % (0-3) Basophils % (Manual) 0 % (0-2) Band Neutrophils 0 % (0-8) Platelet Estimate Adequate Platelet Morphology Normal Anisocytosis 1+ Sodium Level 134 MMOL/L (136-145) L Potassium Level 4.7 MMOL/L (3.5-5.1) Chloride Level 91 MMOL/L (98-107) L Carbon Dioxide Level 25 MMOL/L (21-32) Anion Gap 18 mmol/L (5-15) H Blood Urea Nitrogen 55 mg/dL (7-18) H Creatinine 7.6 MG/DL (0.55-1.30) H Estimat Glomerular Filtration Rate 7.2 mL/min (>60) Glucose Level 231 MG/DL (74-106) H Calcium Level 9.7 MG/DL (8.5-10.1) Phosphorus Level 5.2 MG/DL (2.5-4.9) H Total Bilirubin 0.5 MG/DL (0.2-1.0) Aspartate Amino Transf (AST/SGOT) 68 U/L (15-37) H Alanine Aminotransferase (ALT/SGPT) 22 U/L (12-78) Alkaline Phosphatase 179 U/L (46-116) H Total Protein 10.0 G/DL (6.4-8.2) H Albumin 3.1 G/DL (3.4-5.0) L Globulin 6.9 g/dL Albumin/Globulin Ratio 0.4 (1.0-2.7) L Current Medications Medications (Trade) Dose Ordered Sig/Anthony Route PRN Reason Start Time Stop Time Status Last Admin Dose Admin Acetaminophen (Tylenol) 650 mg Q4H PRN NG For Pain 07/11/19 08:00 08/10/19 07:59 07/18/19 09:07 Albuterol Sulfate (Proventil MDI) 2 puff Q4HRT INH 06/06/19 23:00 08/30/19 18:59 07/18/19 07:51 Chlorhexidine Gluconate (Michelle-Hex 2%) 1 applic DAILY@2000 TOPIC 06/07/19 20:00 09/05/19 19:59 07/17/19 20:16 Dextrose (Dextrose 50%) 25 ml Q30M PRN IV Hypoglycemia 06/20/19 19:30 09/18/19 19:29 Dextrose (Dextrose 50%) 50 ml Q30M PRN IV Hypoglycemia 06/20/19 19:30 09/18/19 19:29 Dopamine HCl/ Dextrose 250 ml @ 0 mls/hr Q24H PRN IV For hypotension 06/13/19 08:15 09/11/19 08:14 07/17/19 08:46 Enoxaparin Sodium (Lovenox) 30 mg DAILY SUBQ 06/07/19 09:00 08/27/19 08:59 07/18/19 09:08 Epoetin Aftab (Epoetin Aftab(ESRD on dialysis)) 10,000 unit SUBQ 06/07/19 21:00 08/31/19 20:59 07/16/19 20:54 Haloperidol Lactate 5 mg/ Dextrose 56 ml @ 224 mls/hr Q6H PRN IVPB Agitation 07/11/19 15:00 08/25/19 14:59 07/15/19 02:36 Hydralazine HCl (Apresoline) 10 mg Q4H PRN IV Blood pressure over 160 systol 06/07/19 10:15 09/05/19 10:14 Hydromorphone HCl (Dilaudid) 0.5 mg Q3H PRN IVP For Pain 07/11/19 15:00 07/18/19 14:59 07/15/19 20:31 Insulin Aspart (NovoLOG) EVERY 6 HOURS SUBQ 06/21/19 00:00 09/19/19 00:00 07/18/19 05:34 Lorazepam (Ativan 2mg/ml 1ml) 0.5 mg Q4H PRN IV For Anxiety 07/11/19 15:00 07/18/19 14:59 07/18/19 10:54 Metoclopramide HCl (Reglan) 5 mg Q8H PRN IVP Nausea & Vomiting 06/18/19 12:00 07/18/19 11:59 06/19/19 00:50 Midodrine (Pro-Amatine) 10 mg Q8HR ORAL 07/17/19 14:00 10/15/19 10:29 07/17/19 14:30 Norepinephrine Bitartrate 8 mg/ Dextrose 283 ml @ 0 mls/hr Q24H IV 06/23/19 23:00 07/23/19 22:59 07/18/19 10:54 Pantoprazole (Protonix) 40 mg DAILY IVP 06/19/19 09:00 07/19/19 08:59 07/18/19 09:07 Sevelamer Carbonate (Renvela) 2,400 mg Q6HR NG 07/14/19 12:00 10/12/19 13:59 07/18/19 05:33 Ted Leyva MD Jul 18, 2019 11:23
--- NOTE | 2019-07-18 12:11 | Cardiac Electrophysiology PN ---
Assessment/Plan Assessment/Plan 1. Elevated troponin. Low level and flat due to renal failure. On Aspirin. EF 60 %. 2. Septic shock. On Levo 12 mcg 3. ESRD, on HD per Dr. Cole. 4. Resp failure due to COVID-19 positive pneumonia. On the Vent with 30% Fio2. S/P Tracheostomy 07/08/19 5. MRSA carrier. 6. COPD. 7. Anemia. 8. Dysphagia, S/P PEG 07/13/19 DW RN Subjective Subjective In ICU, on Vent with 30% Fio2. On Levo 12 mcg and Midodrine . S/P Tracheostomy. S/P PEG 07/13/19 S/P Left IG HD catheter placement and HD. Objective Last 24 Hour Vital Signs Date Time Temp Pulse Resp B/P (MAP) Pulse Ox O2 Delivery O2 Flow Rate FiO2 07/18/19 12:00 98.5 110 26 97/68 (78) 100 07/18/19 11:45 112 31 111/86 (94) 100 07/18/19 11:30 112 26 92/71 (78) 100 07/18/19 11:15 119 23 93/71 (78) 100 07/18/19 11:00 122 30 100/71 (81) 100 07/18/19 10:54 102/56 07/18/19 10:15 122 28 96/66 (76) 100 07/18/19 10:00 126 29 87/63 (71) 100 07/18/19 09:52 128 35 96/57 (70) 100 07/18/19 09:45 131 29 86/63 (71) 100 07/18/19 09:30 140 48 113/94 (100) 100 07/18/19 09:15 138 46 115/80 (92) 100 07/18/19 09:00 98.0 129 51 113/86 (95) 100 07/18/19 08:15 134 33 75/56 (62) 07/18/19 08:00 Mechanical Ventilator 07/18/19 08:00 128 32 64/47 (53) 07/18/19 08:00 30 07/18/19 08:00 132 07/18/19 07:51 120 28 100 Mechanical Ventilator 30 121 29 30 07/18/19 07:00 130 44 103/67 (79) 100 07/18/19 06:50 77/54 07/18/19 06:30 126 35 82/60 (67) 100 07/18/19 06:00 97.9 136 35 104/80 (88) 100 07/18/19 05:30 136 46 95/68 (77) 100 07/18/19 05:00 102/64 07/18/19 05:00 144 45 111/95 (100) 100 07/18/19 04:30 137 41 144/102 (116) 100 07/18/19 04:00 Mechanical Ventilator 07/18/19 04:00 140 07/18/19 04:00 144/92 07/18/19 04:00 98.9 104 28 144/92 (109) 100 07/18/19 04:00 30 07/18/19 03:54 94 26 100 Mechanical Ventilator 30 99 28 30 07/18/19 03:30 98 25 112/74 (87) 100 07/18/19 03:00 108/66 07/18/19 03:00 103 22 108/66 (80) 100 07/18/19 02:45 104 20 98/76 (83) 100 07/18/19 02:30 105 27 87/64 (72) 100 07/18/19 02:15 124 38 108/81 (90) 100 07/18/19 02:00 102/76 07/18/19 02:00 119 36 102/76 (85) 100 07/18/19 01:45 113 34 96/71 (79) 100 07/18/19 01:30 120 31 159/89 (112) 95 07/18/19 01:00 104 30 131/80 (97) 100 07/18/19 01:00 131/80 07/18/19 00:45 91 25 130/70 (90) 100 07/18/19 00:30 92 22 131/81 (98) 100 07/18/19 00:15 92 25 110/63 (79) 100 07/18/19 00:00 30 07/18/19 00:00 98.3 98 26 100/61 (74) 100 07/18/19 00:00 100/61 07/18/19 00:00 Mechanical Ventilator 07/18/19 00:00 91 07/17/19 23:44 106 28 100 Mechanical Ventilator 30 106 29 30 6/6/20 23:30 113 31 119/67 (84) 100 07/17/19 23:00 80 26 115/79 (91) 100 07/17/19 23:00 115/79 07/17/19 22:30 81 26 112/72 (85) 100 07/17/19 22:00 114/74 07/17/19 22:00 81 26 114/74 (87) 100 07/17/19 21:30 81 25 118/74 (89) 100 07/17/19 21:00 81 27 112/76 (88) 100 07/17/19 21:00 112/76 07/17/19 20:30 81 26 120/83 (95) 100 07/17/19 20:00 98.6 88 26 113/70 (84) 100 07/17/19 20:00 30 07/17/19 20:00 113/70 07/17/19 20:00 116 07/17/19 20:00 Mechanical Ventilator 07/17/19 19:35 112 33 100 Mechanical Ventilator 30 109 33 30 07/17/19 19:30 110 33 116/68 (84) 100 07/17/19 19:00 112 40 128/82 (97) 100 07/17/19 18:15 116 33 102/73 (83) 100 07/17/19 18:00 110 32 106/82 (90) 100 07/17/19 17:00 99 32 102/64 (77) 100 07/17/19 16:30 120 35 102/69 (80) 100 07/17/19 16:15 127 39 96/77 (83) 100 07/17/19 16:00 Mechanical Ventilator 07/17/19 16:00 30 07/17/19 16:00 98.9 125 31 98/73 (81) 100 07/17/19 16:00 87 07/17/19 15:58 111 29 30 07/17/19 15:00 94 26 115/67 (83) 100 07/17/19 14:00 91 19 112/62 (79) 100 07/17/19 13:15 102 32 97/63 (74) 100 07/17/19 13:00 111 37 115/69 (84) 100 07/17/19 13:00 97/63 Intake and Output 07/17/19 07/18/19 18:59 06:59 Intake Total 667.60 ml 755.54 ml Output Total 1000 ml Balance -332.40 ml 755.54 ml Free Water 100 ml 240 ml IV Total 87.60 ml 165.54 ml Tube Feeding 420 ml 230 ml Other 60 ml 120 ml Hemodialysis UF 1000 ml # Bowel Movements 2 4 Laboratory Tests Test 07/18/19 04:15 White Blood Count 18.2 K/UL (4.8-10.8) H Red Blood Count 4.08 M/UL (4.70-6.10) L Hemoglobin 11.8 G/DL (14.2-18.0) L Hematocrit 36.4 % (42.0-52.0) L Mean Corpuscular Volume 89 FL (80-99) Mean Corpuscular Hemoglobin 28.9 PG (27.0-31.0) Mean Corpuscular Hemoglobin Concent 32.3 G/DL (32.0-36.0) Red Cell Distribution Width 16.0 % (11.6-14.8) H Platelet Count 404 K/UL (150-450) Mean Platelet Volume 7.0 FL (6.5-10.1) Neutrophils (%) (Auto) % (45.0-75.0) Lymphocytes (%) (Auto) % (20.0-45.0) Monocytes (%) (Auto) % (1.0-10.0) Eosinophils (%) (Auto) % (0.0-3.0) Basophils (%) (Auto) % (0.0-2.0) Differential Total Cells Counted 100 Neutrophils % (Manual) 81 % (45-75) H Lymphocytes % (Manual) 8 % (20-45) L Monocytes % (Manual) 10 % (1-10) Eosinophils % (Manual) 1 % (0-3) Basophils % (Manual) 0 % (0-2) Band Neutrophils 0 % (0-8) Platelet Estimate Adequate Platelet Morphology Normal Anisocytosis 1+ Sodium Level 134 MMOL/L (136-145) L Potassium Level 4.7 MMOL/L (3.5-5.1) Chloride Level 91 MMOL/L (98-107) L Carbon Dioxide Level 25 MMOL/L (21-32) Anion Gap 18 mmol/L (5-15) H Blood Urea Nitrogen 55 mg/dL (7-18) H Creatinine 7.6 MG/DL (0.55-1.30) H Estimat Glomerular Filtration Rate 7.2 mL/min (>60) Glucose Level 231 MG/DL (74-106) H Calcium Level 9.7 MG/DL (8.5-10.1) Phosphorus Level 5.2 MG/DL (2.5-4.9) H Total Bilirubin 0.5 MG/DL (0.2-1.0) Aspartate Amino Transf (AST/SGOT) 68 U/L (15-37) H Alanine Aminotransferase (ALT/SGPT) 22 U/L (12-78) Alkaline Phosphatase 179 U/L (46-116) H Total Protein 10.0 G/DL (6.4-8.2) H Albumin 3.1 G/DL (3.4-5.0) L Globulin 6.9 g/dL Albumin/Globulin Ratio 0.4 (1.0-2.7) L Microbiology Date/Time Source Procedure Growth Status 07/16/19 12:00 Nasopharynx Coronavirus COVID-19 PCR ([facility]) - Final Complete Objective HEAD AND NECK: No JVD. Tracheostomy in place. Left IJ HD catheter now in place LUNGS: Decreased breath sounds. CARDIOVASCULAR: Regular S1 and S2. Tachycardic. ABDOMEN: Soft. PEG in place EXTREMITIES: No pitting edema. Left FV Gio Engel MD Jul 18, 2019 12:11
[2019-07-18] MEDS ORDERED: Levofloxacin 750mg tab GT SCH (14:00)
--- NOTE | 2019-07-18 17:52 | Surgery Progress Note ---
Surgery Progress Note Subjective Procedure Performed Right femoral temporary hemodialysis catheter removal Additional Comments ill in icu, cxr improving infiltrates, airborne/contact isolation non verbal tach okay Objective Last 24 Hour Vital Signs Date Time Temp Pulse Resp B/P (MAP) Pulse Ox O2 Delivery O2 Flow Rate FiO2 07/18/19 17:30 122 33 126/64 (84) 100 07/18/19 17:00 121 25 115/81 (92) 100 07/18/19 16:30 116 42 121/86 (98) 100 07/18/19 16:00 117 07/18/19 16:00 98.9 112 41 130/80 (97) 100 07/18/19 16:00 30 07/18/19 16:00 Mechanical Ventilator 07/18/19 15:36 99 28 100 Mechanical Ventilator 30 100 35 30 07/18/19 15:15 103 25 95/67 (76) 100 07/18/19 15:00 106 22 102/78 (86) 100 07/18/19 14:00 100 26 104/71 (82) 100 07/18/19 13:30 101 26 103/70 (81) 100 07/18/19 13:09 102 26 129/73 (91) 100 07/18/19 13:00 104 17 87/70 (76) 100 07/18/19 13:00 104/76 07/18/19 12:00 102 07/18/19 12:00 98.5 110 26 97/68 (78) 100 07/18/19 12:00 97/68 07/18/19 12:00 30 07/18/19 12:00 Mechanical Ventilator 07/18/19 11:45 112 31 111/86 (94) 100 07/18/19 11:30 112 26 92/71 (78) 100 07/18/19 11:15 119 23 93/71 (78) 100 07/18/19 11:12 113 27 100 Mechanical Ventilator 30 115 27 30 07/18/19 11:00 100/71 07/18/19 11:00 122 30 100/71 (81) 100 07/18/19 10:54 102/56 07/18/19 10:15 122 28 96/66 (76) 100 07/18/19 10:00 87/63 07/18/19 10:00 126 29 87/63 (71) 100 07/18/19 09:52 128 35 96/57 (70) 100 07/18/19 09:45 131 29 86/63 (71) 100 07/18/19 09:30 140 48 113/94 (100) 100 07/18/19 09:15 138 46 115/80 (92) 100 07/18/19 09:00 113/86 07/18/19 09:00 98.0 129 51 113/86 (95) 100 07/18/19 08:15 134 33 75/56 (62) 07/18/19 08:00 Mechanical Ventilator 07/18/19 08:00 128 32 64/47 (53) 07/18/19 08:00 64/47 07/18/19 08:00 30 07/18/19 08:00 132 07/18/19 07:51 120 28 100 Mechanical Ventilator 30 121 29 30 07/18/19 07:00 130 44 103/67 (79) 100 07/18/19 07:00 97/66 07/18/19 06:50 77/54 07/18/19 06:30 126 35 82/60 (67) 100 07/18/19 06:00 97.9 136 35 104/80 (88) 100 07/18/19 05:30 136 46 95/68 (77) 100 07/18/19 05:00 102/64 07/18/19 05:00 144 45 111/95 (100) 100 07/18/19 04:30 137 41 144/102 (116) 100 07/18/19 04:00 Mechanical Ventilator 07/18/19 04:00 140 07/18/19 04:00 144/92 07/18/19 04:00 98.9 104 28 144/92 (109) 100 07/18/19 04:00 30 07/18/19 03:54 94 26 100 Mechanical Ventilator 30 99 28 30 07/18/19 03:30 98 25 112/74 (87) 100 07/18/19 03:00 108/66 07/18/19 03:00 103 22 108/66 (80) 100 07/18/19 02:45 104 20 98/76 (83) 100 07/18/19 02:30 105 27 87/64 (72) 100 07/18/19 02:15 124 38 108/81 (90) 100 07/18/19 02:00 102/76 07/18/19 02:00 119 36 102/76 (85) 100 07/18/19 01:45 113 34 96/71 (79) 100 07/18/19 01:30 120 31 159/89 (112) 95 07/18/19 01:00 104 30 131/80 (97) 100 07/18/19 01:00 131/80 07/18/19 00:45 91 25 130/70 (90) 100 07/18/19 00:30 92 22 131/81 (98) 100 07/18/19 00:15 92 25 110/63 (79) 100 07/18/19 00:00 30 07/18/19 00:00 98.3 98 26 100/61 (74) 100 07/18/19 00:00 100/61 07/18/19 00:00 Mechanical Ventilator 07/18/19 00:00 91 07/17/19 23:44 106 28 100 Mechanical Ventilator 30 106 29 30 07/17/19 23:30 113 31 119/67 (84) 100 07/17/19 23:00 80 26 115/79 (91) 100 07/17/19 23:00 115/79 07/17/19 22:30 81 26 112/72 (85) 100 07/17/19 22:00 114/74 07/17/19 22:00 81 26 114/74 (87) 100 07/17/19 21:30 81 25 118/74 (89) 100 07/17/19 21:00 81 27 112/76 (88) 100 07/17/19 21:00 112/76 07/17/19 20:30 81 26 120/83 (95) 100 07/17/19 20:00 98.6 88 26 113/70 (84) 100 07/17/19 20:00 30 07/17/19 20:00 113/70 07/17/19 20:00 116 07/17/19 20:00 Mechanical Ventilator 07/17/19 19:35 112 33 100 Mechanical Ventilator 30 109 33 30 07/17/19 19:30 110 33 116/68 (84) 100 07/17/19 19:00 112 40 128/82 (97) 100 07/17/19 18:15 116 33 102/73 (83) 100 07/17/19 18:00 110 32 106/82 (90) 100 I&O Intake and Output 07/17/19 07/18/19 19:00 07:00 Intake Total 684.58 ml 738.56 ml Output Total 1000 ml Balance -315.42 ml 738.56 ml Free Water 100 ml 240 ml IV Total 104.58 ml 148.56 ml Tube Feeding 420 ml 230 ml Other 60 ml 120 ml Hemodialysis UF 1000 ml # Bowel Movements 2 4 Dressing: other Wound: other Drains: other Cardiovascular: RSR Respiratory: decreased breath sounds Abdomen: soft, non-tender, present bowel sounds Extremities: no cyanosis Laboratory Tests Test 07/18/19 04:15 White Blood Count 18.2 K/UL (4.8-10.8) H Red Blood Count 4.08 M/UL (4.70-6.10) L Hemoglobin 11.8 G/DL (14.2-18.0) L Hematocrit 36.4 % (42.0-52.0) L Mean Corpuscular Volume 89 FL (80-99) Mean Corpuscular Hemoglobin 28.9 PG (27.0-31.0) Mean Corpuscular Hemoglobin Concent 32.3 G/DL (32.0-36.0) Red Cell Distribution Width 16.0 % (11.6-14.8) H Platelet Count 404 K/UL (150-450) Mean Platelet Volume 7.0 FL (6.5-10.1) Neutrophils (%) (Auto) % (45.0-75.0) Lymphocytes (%) (Auto) % (20.0-45.0) Monocytes (%) (Auto) % (1.0-10.0) Eosinophils (%) (Auto) % (0.0-3.0) Basophils (%) (Auto) % (0.0-2.0) Differential Total Cells Counted 100 Neutrophils % (Manual) 81 % (45-75) H Lymphocytes % (Manual) 8 % (20-45) L Monocytes % (Manual) 10 % (1-10) Eosinophils % (Manual) 1 % (0-3) Basophils % (Manual) 0 % (0-2) Band Neutrophils 0 % (0-8) Platelet Estimate Adequate Platelet Morphology Normal Anisocytosis 1+ Sodium Level 134 MMOL/L (136-145) L Potassium Level 4.7 MMOL/L (3.5-5.1) Chloride Level 91 MMOL/L (98-107) L Carbon Dioxide Level 25 MMOL/L (21-32) Anion Gap 18 mmol/L (5-15) H Blood Urea Nitrogen 55 mg/dL (7-18) H Creatinine 7.6 MG/DL (0.55-1.30) H Estimat Glomerular Filtration Rate 7.2 mL/min (>60) Glucose Level 231 MG/DL (74-106) H Calcium Level 9.7 MG/DL (8.5-10.1) Phosphorus Level 5.2 MG/DL (2.5-4.9) H Total Bilirubin 0.5 MG/DL (0.2-1.0) Aspartate Amino Transf (AST/SGOT) 68 U/L (15-37) H Alanine Aminotransferase (ALT/SGPT) 22 U/L (12-78) Alkaline Phosphatase 179 U/L (46-116) H Total Protein 10.0 G/DL (6.4-8.2) H Albumin 3.1 G/DL (3.4-5.0) L Globulin 6.9 g/dL Albumin/Globulin Ratio 0.4 (1.0-2.7) L Plan Problems: (1) Suspected COVID-19 virus infection (2) HTN (hypertension) (3) CASSANDRA (acute kidney injury) Assessment & Plan: Needs urgent HD needs access patient okay and consented see note will follow with recs new line placed discussed with team and nephrology HD line functional when checked has TPA now please use appropriately Cathflo used again this flow during dialysis on 430 was low. Will monitor may need line change 5/4 plan for HD as per renal may need to take fluid off with HD edema anasarca dressings saturated and changed will monitor cont with HD IJ left line placed for HD given extent of prior line in place. leukocytosis blood cx negative may need to change out line (4) Anemia in chronic kidney disease (CKD) (5) Anemia (6) Renal failure (7) Suspected COVID-19 virus infection Assessment & Plan: Pt deconditioned and despite all skin preventions Pt noted to have developed several pressure injuries. . Stable dry eschar noted to clefts of R and L ears. No erythema noted . DTPI noted to L trochanter. Base of injury is maroon in colour with marginal erythema along borders. Partially opened DTPI Sacrum, R and L Buttocks. Base of wound is maroon with two small open wounds L sacrum and L buttocks. Pt has an APM/MOMO Mattress overlay and is being positioned with pillows as per tolerance and within protocols. worsening despite medical efforts will cont to provide therapy Tx.Plan: Apply Cavilon Skin Barrier to both ears Daily and prn. Apply Moisture Barrier Paste to Sacrum,R and L Buttocks. Cover with Optifoam drsgs. Change every 3 days and PRN. Apply Cavilon Skin Barrier to R and L trochanter. Cover each site with Optifoam drsgs.Change every 7 days and PRN. Apply Cavilon Skin Barrier to both heels. Cover each heel with Optifoam drsg. Change every 7 days and prn. Off-load heels with pillow. Reposition at least every 2hours or as tolerated. APM/MOMO Mattress overlay. (8) COVID-19 Assessment & Plan: COVID + c diff negative febrile leukocytosis renal insufficiency see above cont resp care Rx as per ID worsening on vent support now cxr noted on pressors prognosis guarded repeat covid ++ weaning vent and pressors off slowly showing improvement slowly recovering will need trach as unable to wean vent safely [facility] obtained s/p trach pending peg Yaniv Mast Jul 18, 2019 17:52
[2019-07-18] MEDS: Dyna-Hex 2% Top Sol 2oz TOPIC SCH (21:20)
--- NOTE | 2019-07-18 21:36 | General Progress Note ---
Assessment/Plan Problem List: (1) HTN (hypertension) ICD Codes: I10 - Essential (primary) hypertension SNOMED: 84021483 (2) CASSANDRA (acute kidney injury) ICD Codes: N17.9 - Acute kidney failure, unspecified SNOMED: 3077472, 58041381 (3) Anemia in chronic kidney disease (CKD) ICD Codes: N18.9 - Chronic kidney disease, unspecified; D63.1 - Anemia in chronic kidney disease SNOMED: 462307902 (4) Renal failure ICD Codes: N19 - Unspecified kidney failure SNOMED: 89548155 (5) Respiratory failure requiring intubation ICD Codes: J96.90 - Respiratory failure, unspecified, unspecified whether with hypoxia or hypercapnia; A41.89 - Other specified sepsis SNOMED: 440476270, 744074157 (6) Pneumonia due to COVID-19 virus ICD Codes: U07.1 - COVID-19; J12.89 - Other viral pneumonia SNOMED: 718241872, 689360474 (7) Sepsis due to severe acute respiratory syndrome coronavirus 2 (SARS-CoV-2) ICD Codes: U07.1 - COVID-19; A41.89 - Other specified sepsis SNOMED: 969257855, 325783062 Status: progressing, unchanged Assessment/Plan: trach and peg malnutrtion check h/h check lytes s/p fluid overload still getting diaylsis s/p covid pna Subjective ROS Limited/Unobtainable: Yes Allergies: Coded Allergies: No Known Allergies (Unverified , 05/28/19) Objective Last 24 Hour Vital Signs Date Time Temp Pulse Resp B/P (MAP) Pulse Ox O2 Delivery O2 Flow Rate FiO2 07/18/19 21:28 103/69 07/18/19 19:15 129 44 100 Mechanical Ventilator 30 120 45 30 07/18/19 19:00 115 42 117/74 (88) 100 07/18/19 18:30 112 38 95/63 (74) 100 07/18/19 18:15 112 39 97/66 (76) 100 07/18/19 18:00 97/66 07/18/19 18:00 112 38 100/63 (75) 100 07/18/19 17:30 122 33 126/64 (84) 100 07/18/19 17:00 121 25 115/81 (92) 100 07/18/19 17:00 119/80 07/18/19 16:30 116 42 121/86 (98) 100 07/18/19 16:00 117 07/18/19 16:00 98.9 112 41 130/80 (97) 100 07/18/19 16:00 30 07/18/19 16:00 121/83 07/18/19 16:00 Mechanical Ventilator 07/18/19 15:36 99 28 100 Mechanical Ventilator 30 100 35 30 07/18/19 15:15 103 25 95/67 (76) 100 07/18/19 15:00 102/78 07/18/19 15:00 106 22 102/78 (86) 100 07/18/19 14:00 100 26 104/71 (82) 100 07/18/19 14:00 104/71 07/18/19 13:30 101 26 103/70 (81) 100 07/18/19 13:09 102 26 129/73 (91) 100 07/18/19 13:00 104 17 87/70 (76) 100 07/18/19 13:00 104/76 07/18/19 12:00 102 07/18/19 12:00 98.5 110 26 97/68 (78) 100 07/18/19 12:00 97/68 07/18/19 12:00 30 07/18/19 12:00 Mechanical Ventilator 07/18/19 11:45 112 31 111/86 (94) 100 07/18/19 11:30 112 26 92/71 (78) 100 07/18/19 11:15 119 23 93/71 (78) 100 07/18/19 11:12 113 27 100 Mechanical Ventilator 30 115 27 30 07/18/19 11:00 100/71 07/18/19 11:00 122 30 100/71 (81) 100 07/18/19 10:54 102/56 07/18/19 10:15 122 28 96/66 (76) 100 07/18/19 10:00 87/63 07/18/19 10:00 126 29 87/63 (71) 100 07/18/19 09:52 128 35 96/57 (70) 100 07/18/19 09:45 131 29 86/63 (71) 100 07/18/19 09:30 140 48 113/94 (100) 100 07/18/19 09:15 138 46 115/80 (92) 100 07/18/19 09:00 113/86 07/18/19 09:00 98.0 129 51 113/86 (95) 100 07/18/19 08:15 134 33 75/56 (62) 07/18/19 08:00 Mechanical Ventilator 07/18/19 08:00 128 32 64/47 (53) 07/18/19 08:00 64/47 07/18/19 08:00 30 07/18/19 08:00 132 07/18/19 07:51 120 28 100 Mechanical Ventilator 30 121 29 30 07/18/19 07:00 130 44 103/67 (79) 100 07/18/19 07:00 97/66 07/18/19 06:50 77/54 07/18/19 06:30 126 35 82/60 (67) 100 07/18/19 06:00 97.9 136 35 104/80 (88) 100 07/18/19 05:30 136 46 95/68 (77) 100 07/18/19 05:00 102/64 07/18/19 05:00 144 45 111/95 (100) 100 07/18/19 04:30 137 41 144/102 (116) 100 07/18/19 04:00 Mechanical Ventilator 07/18/19 04:00 140 07/18/19 04:00 144/92 07/18/19 04:00 98.9 104 28 144/92 (109) 100 07/18/19 04:00 30 07/18/19 03:54 94 26 100 Mechanical Ventilator 30 99 28 30 07/18/19 03:30 98 25 112/74 (87) 100 07/18/19 03:00 108/66 07/18/19 03:00 103 22 108/66 (80) 100 07/18/19 02:45 104 20 98/76 (83) 100 07/18/19 02:30 105 27 87/64 (72) 100 07/18/19 02:15 124 38 108/81 (90) 100 07/18/19 02:00 102/76 07/18/19 02:00 119 36 102/76 (85) 100 07/18/19 01:45 113 34 96/71 (79) 100 07/18/19 01:30 120 31 159/89 (112) 95 07/18/19 01:00 104 30 131/80 (97) 100 07/18/19 01:00 131/80 07/18/19 00:45 91 25 130/70 (90) 100 07/18/19 00:30 92 22 131/81 (98) 100 07/18/19 00:15 92 25 110/63 (79) 100 07/18/19 00:00 30 07/18/19 00:00 98.3 98 26 100/61 (74) 100 07/18/19 00:00 100/61 07/18/19 00:00 Mechanical Ventilator 07/18/19 00:00 91 07/17/19 23:44 106 28 100 Mechanical Ventilator 30 106 29 30 07/17/19 23:30 113 31 119/67 (84) 100 07/17/19 23:00 80 26 115/79 (91) 100 07/17/19 23:00 115/79 07/17/19 22:30 81 26 112/72 (85) 100 07/17/19 22:00 114/74 07/17/19 22:00 81 26 114/74 (87) 100 Intake and Output 07/17/19 07/18/19 19:00 07:00 Intake Total 684.58 ml 738.56 ml Output Total 1000 ml Balance -315.42 ml 738.56 ml Free Water 100 ml 240 ml IV Total 104.58 ml 148.56 ml Tube Feeding 420 ml 230 ml Other 60 ml 120 ml Hemodialysis UF 1000 ml # Bowel Movements 2 4 Laboratory Tests 07/18/19 04:15: White Blood Count 18.2H, Red Blood Count 4.08L, Hemoglobin 11.8L, Hematocrit 36.4L, Mean Corpuscular Volume 89, Mean Corpuscular Hemoglobin 28.9, Mean Corpuscular Hemoglobin Concent 32.3, Red Cell Distribution Width 16.0H, Platelet Count 404, Mean Platelet Volume 7.0, Neutrophils (%) (Auto) , Lymphocytes (%) (Auto) , Monocytes (%) (Auto) , Eosinophils (%) (Auto) , Basophils (%) (Auto) , Differential Total Cells Counted 100, Neutrophils % ( Manual) 81H, Lymphocytes % (Manual) 8L, Monocytes % (Manual) 10, Eosinophils % ( Manual) 1, Basophils % (Manual) 0, Band Neutrophils 0, Platelet Estimate Adequate, Platelet Morphology Normal, Anisocytosis 1+, Sodium Level 134L, Potassium Level 4.7, Chloride Level 91L, Carbon Dioxide Level 25, Anion Gap 18H , Blood Urea Nitrogen 55H, Creatinine 7.6H, Estimat Glomerular Filtration Rate 7.2, Glucose Level 231H, Calcium Level 9.7, Phosphorus Level 5.2H, Total Bilirubin 0.5, Aspartate Amino Transf (AST/SGOT) 68H, Alanine Aminotransferase ( ALT/SGPT) 22, Alkaline Phosphatase 179H, Total Protein 10.0H, Albumin 3.1L, Globulin 6.9, Albumin/Globulin Ratio 0.4L Height (Feet): 6 Height (Inches): 1.00 Weight (Pounds): 186 Karishma Mulligan MD Jul 18, 2019 21:36
[2019-07-19] VITALS (48 sets, daily range): BP systolic 72–148; BP diastolic 34–109
[2019-07-19] MEDS: Albuterol 90mcg Inhaler 8gm INH SCH ×6 (03:32→23:14)
[2019-07-19] MEDS: Renvela 2400 mg pkt NG SCH ×4 (05:45→18:38)
[2019-07-19] MEDS: Midodrine 10mg tab ORAL SCH ×3 (05:45→22:49)
[2019-07-19] MEDS: NovoLOG Insulin Flexpen SUBQ SCH ×4 (06:00→18:42)
--- NOTE | 2019-07-19 06:34 | General Progress Note ---
Assessment/Plan Status: progressing, unchanged Assessment/Plan: 1. Diabetes. 2. Hypertension. 3. Coronary artery disease. 4. COPD. 5. Psychiatric disorder with schizophrenia. 6. History of hepatitis C. 7. HLP. 8. Chronic kidney disease, now with acute renal failure. 9. Anemia. 10. Hypothyroidism. 11. Spinal stenosis. 12. Constipation. 13. GERD. 14. COVID positive HD per nephrology fu labs icu care s/p PEG GTF monitor for residuals Subjective ROS Limited/Unobtainable: No Allergies: Coded Allergies: No Known Allergies (Unverified , 05/28/19) Objective Last 24 Hour Vital Signs Date Time Temp Pulse Resp B/P (MAP) Pulse Ox O2 Delivery O2 Flow Rate FiO2 07/19/19 04:00 99.0 127 37 134/106 (115) 100 07/19/19 04:00 30 07/19/19 04:00 124 07/19/19 04:00 140/100 07/19/19 04:00 Mechanical Ventilator 07/19/19 04:00 99.0 127 37 134/106 (115) 100 07/19/19 03:30 126 35 118/81 (93) 100 07/19/19 03:30 126 35 118/81 (93) 100 07/19/19 03:00 124 32 109/79 (89) 100 07/19/19 03:00 130/81 07/19/19 03:00 124 32 109/79 (89) 100 07/19/19 03:00 111 39 99 Mechanical Ventilator 30 110 37 30 07/19/19 02:30 126 32 110/80 (90) 100 07/19/19 02:30 126 32 110/80 (90) 100 07/19/19 02:00 120/78 07/19/19 02:00 123 33 110/40 (63) 100 07/19/19 01:30 122 28 94/74 (81) 100 07/19/19 01:00 126 37 106/79 (88) 100 07/19/19 01:00 92/70 07/19/19 00:30 120 20 148/82 (104) 100 07/19/19 00:00 Mechanical Ventilator 07/19/19 00:00 128/80 07/19/19 00:00 98.8 121 108/83 (91) 100 07/19/19 00:00 30 07/18/19 23:30 119 29 110/80 (90) 100 07/18/19 23:00 110 34 100 Mechanical Ventilator 30 110 30 30 07/18/19 23:00 118 26 100/82 (88) 100 07/18/19 23:00 114/79 07/18/19 22:30 106 33 108/74 (85) 100 07/18/19 22:00 97 29 87/68 (74) 100 82 07/18/19 22:00 105/65 07/18/19 21:30 129 33 109/91 (97) 100 84 07/18/19 21:28 103/69 07/18/19 21:00 103/69 07/18/19 21:00 127 31 120/83 (95) 100 112 07/18/19 20:30 134 40 124/88 (100) 100 07/18/19 20:00 125/65 07/18/19 20:00 Mechanical Ventilator 07/18/19 20:00 84 07/18/19 20:00 30 07/18/19 20:00 99.0 126 52 125/65 (85) 100 07/18/19 19:30 117 42 118/72 (87) 100 07/18/19 19:15 119 44 100 Mechanical Ventilator 30 120 45 30 07/18/19 19:00 115 42 117/74 (88) 100 07/18/19 19:00 117/74 07/18/19 18:30 112 38 95/63 (74) 100 07/18/19 18:15 112 39 97/66 (76) 100 07/18/19 18:00 97/66 07/18/19 18:00 112 38 100/63 (75) 100 07/18/19 17:30 122 33 126/64 (84) 100 07/18/19 17:00 121 25 115/81 (92) 100 07/18/19 17:00 119/80 07/18/19 16:30 116 42 121/86 (98) 100 07/18/19 16:00 117 07/18/19 16:00 98.9 112 41 130/80 (97) 100 07/18/19 16:00 30 07/18/19 16:00 121/83 07/18/19 16:00 Mechanical Ventilator 07/18/19 15:36 99 28 100 Mechanical Ventilator 30 100 35 30 07/18/19 15:15 103 25 95/67 (76) 100 07/18/19 15:00 102/78 07/18/19 15:00 106 22 102/78 (86) 100 07/18/19 14:00 100 26 104/71 (82) 100 07/18/19 14:00 104/71 07/18/19 13:30 101 26 103/70 (81) 100 07/18/19 13:09 102 26 129/73 (91) 100 07/18/19 13:00 104 17 87/70 (76) 100 07/18/19 13:00 104/76 07/18/19 12:00 102 07/18/19 12:00 98.5 110 26 97/68 (78) 100 07/18/19 12:00 97/68 07/18/19 12:00 30 07/18/19 12:00 Mechanical Ventilator 07/18/19 11:45 112 31 111/86 (94) 100 07/18/19 11:30 112 26 92/71 (78) 100 07/18/19 11:15 119 23 93/71 (78) 100 07/18/19 11:12 113 27 100 Mechanical Ventilator 30 115 27 30 07/18/19 11:00 100/71 07/18/19 11:00 122 30 100/71 (81) 100 07/18/19 10:54 102/56 07/18/19 10:15 122 28 96/66 (76) 100 07/18/19 10:00 87/63 07/18/19 10:00 126 29 87/63 (71) 100 07/18/19 09:52 128 35 96/57 (70) 100 07/18/19 09:45 131 29 86/63 (71) 100 07/18/19 09:30 140 48 113/94 (100) 100 07/18/19 09:15 138 46 115/80 (92) 100 07/18/19 09:00 113/86 07/18/19 09:00 98.0 129 51 113/86 (95) 100 07/18/19 08:15 134 33 75/56 (62) 07/18/19 08:00 Mechanical Ventilator 07/18/19 08:00 128 32 64/47 (53) 07/18/19 08:00 64/47 6/7/20 08:00 30 07/18/19 08:00 132 07/18/19 07:51 120 28 100 Mechanical Ventilator 30 121 29 30 07/18/19 07:00 130 44 103/67 (79) 100 07/18/19 07:00 97/66 07/18/19 06:50 77/54 Intake and Output 07/18/19 07/19/19 19:00 07:00 Intake Total 802.84 ml 560.24 ml Balance 802.84 ml 560.24 ml Free Water 60 ml 50 ml IV Total 292.84 ml 195.24 ml Tube Feeding 420 ml 315 ml Other 30 ml # Bowel Movements 3 2 Height (Feet): 6 Height (Inches): 1.00 Weight (Pounds): 186 General Appearance: no apparent distress EENT: normal ENT inspection Neck: supple Cardiovascular: normal rate Respiratory/Chest: decreased breath sounds Abdomen: normal bowel sounds, non tender, soft Extremities: non-tender Marito Ramires MD Jul 19, 2019 06:34
--- NOTE | 2019-07-19 07:15 | Pulmonolgy Critical Care Note ---
Critical Care - Asmt/Plan Assessment/Plan: Pulmonary CCM Progress Note HPI: Patient is a 68 year old man, group home resident, admitted c/o shortness of breath, cough, noted to have Covid 19 Pneumonia, Respiratory Failure Remains on Ventilator, CXR improving infiltrates ETT adjusted Septic Shock, pressors off currently, on Mitodrine Preserved EF FIO2 40%-50%, P5, adequate O2 sats, remains on ACVC, tolerating weaning, s/p Tracheostomy, CXR stable, sp PEG Evaluated earlier on 07/18/2019 ID following Past Medical History: COPD, CKD, Hypertension, Anemia Allergies: No Known Allergies Improving Pulmonary Status on HD Physical Exam Vital Signs Noted Stable on ventilator Deferred Covid-19 Impression: COVID-19 virus infection Pneumonia Respiratory failure on ventilator, wean as tolerated CKD - on HD Hypotension on pressors previously Cardiomegaly Lymphopenia Elevated AST COPD Chronic Kidney Disease - HD H/o Hypertension Worsening anemia Plan: Tolerated Tracheostomy Antibiotics per ID HD Pressors PRN ACVC - wean as tolerated CROCHETER HAND Medications 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 Monitor cultures/viral studies PPX Hemodialysis per Renal Psychiatry following [facility] - [facility] requested for when available, [facility] - not available as yet Laboratory Tests Noted: CXR: Hypoventilatory exam, interstitial changes, cardiomegaly, improving infiltrates Subjective ROS Limited/Unobtainable: No Constitutional: Denies: fever Respiratory: Reports: dry cough, shortness of breath Gastrointestinal/Abdominal: Reports: diarrhea, other - colace was stopped Psychiatric: Reports: other - refuses labs Allergies: Coded Allergies: No Known Allergies (Unverified , 05/28/19) All Systems: reviewed and negative except above Labs noted Critical Care - Objective Last 24 Hour Vital Signs Date Time Temp Pulse Resp B/P (MAP) Pulse Ox O2 Delivery O2 Flow Rate FiO2 07/19/19 06:30 127 76 140/109 (119) 86 07/19/19 06:00 134 33 117/84 (95) 100 07/19/19 06:00 130/80 07/19/19 05:30 130 29 126/87 (100) 100 07/19/19 05:00 131 37 130/101 (111) 100 07/19/19 05:00 138/60 07/19/19 04:30 130 37 135/83 (100) 100 07/19/19 04:00 99.0 127 37 134/106 (115) 100 07/19/19 04:00 30 07/19/19 04:00 124 07/19/19 04:00 140/100 07/19/19 04:00 Mechanical Ventilator 07/19/19 04:00 99.0 127 37 134/106 (115) 100 07/19/19 03:30 126 35 118/81 (93) 100 07/19/19 03:30 126 35 118/81 (93) 100 07/19/19 03:00 124 32 109/79 (89) 100 07/19/19 03:00 130/81 07/19/19 03:00 124 32 109/79 (89) 100 07/19/19 03:00 111 39 99 Mechanical Ventilator 30 110 37 30 07/19/19 02:30 126 32 110/80 (90) 100 07/19/19 02:30 126 32 110/80 (90) 100 07/19/19 02:00 120/78 07/19/19 02:00 123 33 110/40 (63) 100 07/19/19 01:30 122 28 94/74 (81) 100 07/19/19 01:00 126 37 106/79 (88) 100 07/19/19 01:00 92/70 07/19/19 00:30 120 20 148/82 (104) 100 07/19/19 00:00 Mechanical Ventilator 07/19/19 00:00 128/80 07/19/19 00:00 98.8 121 108/83 (91) 100 07/19/19 00:00 30 07/18/19 23:30 119 29 110/80 (90) 100 07/18/19 23:00 110 34 100 Mechanical Ventilator 30 110 30 30 07/18/19 23:00 118 26 100/82 (88) 100 07/18/19 23:00 114/79 07/18/19 22:30 106 33 108/74 (85) 100 07/18/19 22:00 97 29 87/68 (74) 100 82 07/18/19 22:00 105/65 07/18/19 21:30 129 33 109/91 (97) 100 84 07/18/19 21:28 103/69 07/18/19 21:00 103/69 07/18/19 21:00 127 31 120/83 (95) 100 112 07/18/19 20:30 134 40 124/88 (100) 100 07/18/19 20:00 125/65 07/18/19 20:00 Mechanical Ventilator 07/18/19 20:00 84 07/18/19 20:00 30 07/18/19 20:00 99.0 126 52 125/65 (85) 100 07/18/19 19:30 117 42 118/72 (87) 100 07/18/19 19:15 119 44 100 Mechanical Ventilator 30 120 45 30 07/18/19 19:00 115 42 117/74 (88) 100 07/18/19 19:00 117/74 07/18/19 18:30 112 38 95/63 (74) 100 07/18/19 18:15 112 39 97/66 (76) 100 07/18/19 18:00 97/66 07/18/19 18:00 112 38 100/63 (75) 100 07/18/19 17:30 122 33 126/64 (84) 100 07/18/19 17:00 121 25 115/81 (92) 100 07/18/19 17:00 119/80 07/18/19 16:30 116 42 121/86 (98) 100 07/18/19 16:00 117 07/18/19 16:00 98.9 112 41 130/80 (97) 100 07/18/19 16:00 30 07/18/19 16:00 121/83 07/18/19 16:00 Mechanical Ventilator 07/18/19 15:36 99 28 100 Mechanical Ventilator 30 100 35 30 07/18/19 15:15 103 25 95/67 (76) 100 07/18/19 15:00 102/78 07/18/19 15:00 106 22 102/78 (86) 100 07/18/19 14:00 100 26 104/71 (82) 100 07/18/19 14:00 104/71 07/18/19 13:30 101 26 103/70 (81) 100 07/18/19 13:09 102 26 129/73 (91) 100 07/18/19 13:00 104 17 87/70 (76) 100 07/18/19 13:00 104/76 07/18/19 12:00 102 07/18/19 12:00 98.5 110 26 97/68 (78) 100 6/7/20 12:00 97/68 07/18/19 12:00 30 07/18/19 12:00 Mechanical Ventilator 07/18/19 11:45 112 31 111/86 (94) 100 07/18/19 11:30 112 26 92/71 (78) 100 07/18/19 11:15 119 23 93/71 (78) 100 07/18/19 11:12 113 27 100 Mechanical Ventilator 30 115 27 30 07/18/19 11:00 100/71 07/18/19 11:00 122 30 100/71 (81) 100 07/18/19 10:54 102/56 07/18/19 10:15 122 28 96/66 (76) 100 07/18/19 10:00 87/63 07/18/19 10:00 126 29 87/63 (71) 100 07/18/19 09:52 128 35 96/57 (70) 100 07/18/19 09:45 131 29 86/63 (71) 100 07/18/19 09:30 140 48 113/94 (100) 100 07/18/19 09:15 138 46 115/80 (92) 100 07/18/19 09:00 113/86 07/18/19 09:00 98.0 129 51 113/86 (95) 100 07/18/19 08:15 134 33 75/56 (62) 07/18/19 08:00 Mechanical Ventilator 07/18/19 08:00 128 32 64/47 (53) 07/18/19 08:00 64/47 07/18/19 08:00 30 07/18/19 08:00 132 07/18/19 07:51 120 28 100 Mechanical Ventilator 30 121 29 30 Micro: Microbiology Date/Time Source Procedure Growth Status 07/16/19 12:00 Nasopharynx Coronavirus COVID-19 PCR ([facility]) - Final Complete Accucheck: 240 Critical Care - Subjective ROS Limited/Unobtainable: Yes Condition: stable IV Access: central FI02: 30 Vent Support Breath Rate: 26 Vent Support Mode: AC Vent Tidal Volume: 500 Sputum Amount: Moderate PEEP: 5.0 PIP: 24 Tube Feeding Amount: 35 I&O: Intake and Output 07/18/19 07/19/19 19:00 07:00 Intake Total 802.84 ml 655.70 ml Balance 802.84 ml 655.70 ml Free Water 60 ml 50 ml IV Total 292.84 ml 220.70 ml Tube Feeding 420 ml 385 ml Other 30 ml # Bowel Movements 3 3 ET-Tube: 7.5 ET Position: 24 Arturo Mckeon MD Jul 19, 2019 07:15
[2019-07-19] MEDS: Enoxaparin 30mg Inj SUBQ SCH (08:48)
--- NOTE | 2019-07-19 08:52 | Nephrology Progress Note ---
Assessment/Plan Problem List: (1) CASSANDRA (acute kidney injury) (2) Anemia in chronic kidney disease (CKD) (3) HTN (hypertension) (4) COVID-19 Assessment Acute renal failure most likely superimposed on chronic kidney disease Suspected COVID-19 virus infection Possible Pneumonia, lymphopenia, elevated AST Cardiomegaly, possible CHF COPD Hypertension Anemia, most likely related to chronic kidney disease Plan July 18: Dialyzed July 16. Will order dialysis tomorrow July 19. Continues to be on ventilator through trach. No labs done today. Continue per consultants. July 17: Dialyzed yesterday. Stable from renal standpoint of view. Remains full code. Status post trach on vent. Status post PEG. Continue per consultants. July 16: Dialysis today. Will resume Midodrin to prevent hypotension. Patient remains full code. July 15: Dialyzed yesterday, due for dialysis tomorrow. Labs and medication list reviewed. Continue per consultants. Patient remains full code. COVID-19 detected again. July 14: Patient currently on dialysis. This is continuation of dialysis from yesterday as yesterday's dialysis was cut short due to catheter malfunction. Labs and medication reviewed. Continue per consultants. July 13: Patient currently on hemodialysis. The dialysis catheter which is a intrajugular Kamlesh has poor flow. Will try TPA. Continue per consultants. July 12: Due for PEG today. Due for dialysis tomorrow. Continue per consultants. Discussed with RN. July 11: Plan for dialysis today. Discussed with RN. Data reviewed. July 10: Plan for dialysis tomorrow July 11. Waiting for consent to proceed with PEG. Continue per consultants. Medication reviewed. Labs reviewed. Discussed with RN. July 09: Dialyzed yesterday. Labs reviewed. Medication reviewed. Next hemodialysis July 11. July 08: Patient has tracheostomy now. Connected to ventilator. Due for dialysis today. Continue per consultants. Discussed with SHANIQUE Romero. July 07: Patient is due for tracheostomy today. Patient was last dialyzed July 05. Will order dialysis for tomorrow. July 06: Patient is intubated on ventilator however the plan is to extubate today. Patient was dialysis yesterday July 05. The dialysis time was cut short due to patient's respiratory distress. Only 1 L was removed during dialysis yesterday. Today's lab reviewed. Continue per consultants. Will arrange for dialysis as needed. July 05: Patient due for dialysis today. Remains intubated. Will schedule permacath placement in a.m. blood cultures on July 04 are negative. July 04: Patient was dialyzed yesterday. Due for dialysis tomorrow. Continues to be intubated. After tomorrow's dialysis will order a permacath. July 03: Dialysis is about to be started now Continues to be intubated Will plan to remove the femoral dialysis catheter and exchanged for a new temporary catheter per ID recommendation We will check surveillance blood culture tomorrow July 02: Patient was dialyzed yesterday and due for dialysis tomorrow Stable from renal standpoint W on dialysis Continue per consultants, weaning....... etc. July 01: Dialysis today Other status unchanged June 30: Due for dialysis tomorrow Remains intubated on ventilator Labs and medication reviewed Discussed with RN Stable from renal standpoint of view June 29: Dialyzed yesterday Due for dialysis tomorrow Stable from renal standpoint to view Keeps failing weaning process June 28: Patient due for dialysis today Stable from renal standpoint to view Continue per consultants June 27: Labs reviewed Due due for dialysis June 28 Discussed with SHANIQUE Dick Continue per consultants Remains intubated on ventilator June 26 Labs reviewed Dialyzed yesterday Started on weaning today Continue to monitor renal parameters June 25: On dialysis now Potassium supplement implemented Continue per consultants Next dialysis June 27June 15: Status unchanged Dialyzed yesterday will dialyze again tomorrow Potassium supplements given Discussed with RN June 14: Due dialysis today Status: Remains intubated on ventilator June 22: Status unchanged Dialyzed yesterday and duefordialysistomorrow Serum sodium stable today June 21 Remains intubated on ventilator Due dialysis today Emphasized high sodium bath for dialysis June 20: Remains intubated on ventilator Dialyzed June 19 next dialysis June 21 Serum sodium 128, will give 250 cc 3% saline Remains full code Discussed with RN Iron panel ordered June 19: Discussed with RN. Patient due for dialysis today. Continue pulmonary support. Remains full code. June 18: Patient dialyzed yesterday June 17 Serum sodium improved but still low Arrange for dialysis tomorrow June 19 Continue per consultants June 17: Due for dialysis today Today's lab reviewed, low serum sodium noted, Emphasized on high sodium bath to dialysis nurse Discussed with SHANIQUE Yuen June 16: Dialyzed yesterday Remains intubated Labs reviewed, serum sodium 131 Plan to dialyze tomorrow June 17 with high sodium bath Discussed with SHANIQUE Yuen June 6: Due for dialysis today Labs reviewed Discussed with RN Transfuse 1 unit of packed RBCs today for low hemoglobin of 7.1 June 5: Blood pressure well maintained Receive dialysis June 13 next hemodialysis June 15June 4: Discussed with RN in ICU Patient did not receive proper dialysis yesterday due to dialysis catheter malfunction Catheter to be adjusted today and dialyzed to be resumed today Continue per consultants Positive for COVID 28 June 2: Patient now intubated on mechanical ventilation Discussed with SHANIQUE Yuen, today June 12 Patient received dialysis yesterday June 10 next hemodialysis June 12 Blood pressure better maintained Today's labs reviewed Continue per consultants Previously patient received dialysis last evening June 05, next dialysis June 07 which was incomplete due to patient's hypotension Will start on midodrine for blood pressure support. Meanwhile continue other pressors as needed Previously Patient is doing poorly, septic, white blood cells are rising, Hypotension somewhat improved We will keep n.p.o. , NG tube for medications, and change medication to IV as needed Patient remains full code Monitor vancomycin level Previously: Patient pulled out his femoral catheter yesterday June 03 which was reinserted by Dr. Mast Patient scheduled for dialysis again June 04, which again was not done due to dialysis nurse citing catheter malfunction Meanwhile continue management per ID, pulmonary , and psych. Meanwhile white blood cell count is rising. Patient blood pressure borderline low. Will check ABG Previously May 31 : I believe patient need dialysis treatment He however needs to competency assessment if can make decisions or not I will communicate with Dr. Mulligan Previously: Per pulmonary and ID advice Adjust blood pressure medication Renal diet Anemia work-up 2D echocardiogram refused Kidney ultrasound refused Jules catheter Urine studies Per orders Subjective ROS Limited/Unobtainable: Yes Objective Objective Last 24 Hour Vital Signs Date Time Temp Pulse Resp B/P (MAP) Pulse Ox O2 Delivery O2 Flow Rate FiO2 07/19/19 06:30 127 76 140/109 (119) 86 07/19/19 06:00 134 33 117/84 (95) 100 07/19/19 06:00 130/80 07/19/19 05:30 130 29 126/87 (100) 100 07/19/19 05:00 131 37 130/101 (111) 100 07/19/19 05:00 138/60 6/8/20 04:30 130 37 135/83 (100) 100 07/19/19 04:00 99.0 127 37 134/106 (115) 100 07/19/19 04:00 30 07/19/19 04:00 124 07/19/19 04:00 140/100 07/19/19 04:00 Mechanical Ventilator 07/19/19 04:00 99.0 127 37 134/106 (115) 100 07/19/19 03:30 126 35 118/81 (93) 100 07/19/19 03:30 126 35 118/81 (93) 100 07/19/19 03:00 124 32 109/79 (89) 100 07/19/19 03:00 130/81 07/19/19 03:00 124 32 109/79 (89) 100 07/19/19 03:00 111 39 99 Mechanical Ventilator 30 110 37 30 07/19/19 02:30 126 32 110/80 (90) 100 07/19/19 02:30 126 32 110/80 (90) 100 07/19/19 02:00 120/78 07/19/19 02:00 123 33 110/40 (63) 100 07/19/19 01:30 122 28 94/74 (81) 100 07/19/19 01:00 126 37 106/79 (88) 100 07/19/19 01:00 92/70 07/19/19 00:30 120 20 148/82 (104) 100 07/19/19 00:00 Mechanical Ventilator 07/19/19 00:00 128/80 07/19/19 00:00 98.8 121 108/83 (91) 100 07/19/19 00:00 30 07/18/19 23:30 119 29 110/80 (90) 100 07/18/19 23:00 110 34 100 Mechanical Ventilator 30 110 30 30 07/18/19 23:00 118 26 100/82 (88) 100 07/18/19 23:00 114/79 07/18/19 22:30 106 33 108/74 (85) 100 07/18/19 22:00 97 29 87/68 (74) 100 82 07/18/19 22:00 105/65 07/18/19 21:30 129 33 109/91 (97) 100 84 07/18/19 21:28 103/69 07/18/19 21:00 103/69 07/18/19 21:00 127 31 120/83 (95) 100 112 07/18/19 20:30 134 40 124/88 (100) 100 07/18/19 20:00 125/65 07/18/19 20:00 Mechanical Ventilator 07/18/19 20:00 84 07/18/19 20:00 30 07/18/19 20:00 99.0 126 52 125/65 (85) 100 07/18/19 19:30 117 42 118/72 (87) 100 07/18/19 19:15 119 44 100 Mechanical Ventilator 30 120 45 30 07/18/19 19:00 115 42 117/74 (88) 100 07/18/19 19:00 117/74 07/18/19 18:30 112 38 95/63 (74) 100 07/18/19 18:15 112 39 97/66 (76) 100 07/18/19 18:00 97/66 07/18/19 18:00 112 38 100/63 (75) 100 07/18/19 17:30 122 33 126/64 (84) 100 07/18/19 17:00 121 25 115/81 (92) 100 07/18/19 17:00 119/80 07/18/19 16:30 116 42 121/86 (98) 100 07/18/19 16:00 117 07/18/19 16:00 98.9 112 41 130/80 (97) 100 07/18/19 16:00 30 07/18/19 16:00 121/83 07/18/19 16:00 Mechanical Ventilator 07/18/19 15:36 99 28 100 Mechanical Ventilator 30 100 35 30 07/18/19 15:15 103 25 95/67 (76) 100 07/18/19 15:00 102/78 07/18/19 15:00 106 22 102/78 (86) 100 07/18/19 14:00 100 26 104/71 (82) 100 07/18/19 14:00 104/71 07/18/19 13:30 101 26 103/70 (81) 100 07/18/19 13:09 102 26 129/73 (91) 100 07/18/19 13:00 104 17 87/70 (76) 100 07/18/19 13:00 104/76 07/18/19 12:00 102 07/18/19 12:00 98.5 110 26 97/68 (78) 100 07/18/19 12:00 97/68 07/18/19 12:00 30 07/18/19 12:00 Mechanical Ventilator 07/18/19 11:45 112 31 111/86 (94) 100 07/18/19 11:30 112 26 92/71 (78) 100 07/18/19 11:15 119 23 93/71 (78) 100 07/18/19 11:12 113 27 100 Mechanical Ventilator 30 115 27 30 07/18/19 11:00 100/71 07/18/19 11:00 122 30 100/71 (81) 100 07/18/19 10:54 102/56 07/18/19 10:15 122 28 96/66 (76) 100 07/18/19 10:00 87/63 07/18/19 10:00 126 29 87/63 (71) 100 07/18/19 09:52 128 35 96/57 (70) 100 07/18/19 09:45 131 29 86/63 (71) 100 07/18/19 09:30 140 48 113/94 (100) 100 07/18/19 09:15 138 46 115/80 (92) 100 07/18/19 09:00 113/86 07/18/19 09:00 98.0 129 51 113/86 (95) 100 Intake and Output 07/18/19 07/19/19 19:00 07:00 Intake Total 802.84 ml 655.70 ml Balance 802.84 ml 655.70 ml Free Water 60 ml 50 ml IV Total 292.84 ml 220.70 ml Tube Feeding 420 ml 385 ml Other 30 ml # Bowel Movements 3 3 No labs done today yet Height (Feet): 6 Height (Inches): 1.00 Weight (Pounds): 184 General Appearance: no apparent distress EENT: other - Trach and vent Cardiovascular: tachycardia Respiratory/Chest: decreased breath sounds Abdomen: distended, other - PEG in place Objective No change Mic Cole MD Jul 19, 2019 08:52
--- NOTE | 2019-07-19 11:12 | Cardiac Electrophysiology PN ---
Assessment/Plan Assessment/Plan 1. Elevated troponin. Low level and flat due to renal failure. On Aspirin. EF 60 %. 2. Septic shock. On Levo 4 mcg 3. ESRD, on HD per Dr. Cole. 4. Resp failure due to COVID-19 positive pneumonia. On the Vent with 30% Fio2. S/P Tracheostomy 07/08/19 5. MRSA carrier. 6. COPD. 7. Anemia. 8. Dysphagia, S/P PEG 07/13/19 DW RN Subjective Subjective In ICU, on Vent with 30% Fio2. On Levo 4 mcg and Midodrine . S/P Tracheostomy. S/P PEG 07/13/19 S/P Left IG HD catheter placement and HD. Anxious and sinus tach Objective Last 24 Hour Vital Signs Date Time Temp Pulse Resp B/P (MAP) Pulse Ox O2 Delivery O2 Flow Rate FiO2 07/19/19 10:00 128 36 97/75 (82) 100 07/19/19 09:30 131 41 107/77 (87) 100 07/19/19 09:00 137 31 103/80 (88) 100 07/19/19 08:30 143 43 109/75 (86) 100 07/19/19 08:00 99.7 130 35 98/75 (83) 100 07/19/19 08:00 30 07/19/19 08:00 142 07/19/19 07:30 131 35 114/76 (89) 92 07/19/19 07:10 148 41 100 Mechanical Ventilator 30 148 41 30 07/19/19 06:30 127 76 140/109 (119) 86 07/19/19 06:00 134 33 117/84 (95) 100 07/19/19 06:00 130/80 07/19/19 05:30 130 29 126/87 (100) 100 07/19/19 05:00 131 37 130/101 (111) 100 07/19/19 05:00 138/60 07/19/19 04:30 130 37 135/83 (100) 100 07/19/19 04:00 99.0 127 37 134/106 (115) 100 07/19/19 04:00 30 07/19/19 04:00 124 07/19/19 04:00 140/100 07/19/19 04:00 Mechanical Ventilator 07/19/19 04:00 99.0 127 37 134/106 (115) 100 07/19/19 03:30 126 35 118/81 (93) 100 07/19/19 03:30 126 35 118/81 (93) 100 07/19/19 03:00 124 32 109/79 (89) 100 07/19/19 03:00 130/81 07/19/19 03:00 124 32 109/79 (89) 100 07/19/19 03:00 111 39 99 Mechanical Ventilator 30 110 37 30 07/19/19 02:30 126 32 110/80 (90) 100 07/19/19 02:30 126 32 110/80 (90) 100 07/19/19 02:00 120/78 07/19/19 02:00 123 33 110/40 (63) 100 07/19/19 01:30 122 28 94/74 (81) 100 07/19/19 01:00 126 37 106/79 (88) 100 07/19/19 01:00 92/70 07/19/19 00:30 120 20 148/82 (104) 100 07/19/19 00:00 Mechanical Ventilator 07/19/19 00:00 128/80 07/19/19 00:00 98.8 121 108/83 (91) 100 07/19/19 00:00 30 07/18/19 23:30 119 29 110/80 (90) 100 07/18/19 23:00 110 34 100 Mechanical Ventilator 30 110 30 30 07/18/19 23:00 118 26 100/82 (88) 100 07/18/19 23:00 114/79 07/18/19 22:30 106 33 108/74 (85) 100 07/18/19 22:00 97 29 87/68 (74) 100 82 07/18/19 22:00 105/65 07/18/19 21:30 129 33 109/91 (97) 100 84 07/18/19 21:28 103/69 07/18/19 21:00 103/69 07/18/19 21:00 127 31 120/83 (95) 100 112 07/18/19 20:30 134 40 124/88 (100) 100 07/18/19 20:00 125/65 07/18/19 20:00 Mechanical Ventilator 07/18/19 20:00 84 07/18/19 20:00 30 07/18/19 20:00 99.0 126 52 125/65 (85) 100 07/18/19 19:30 117 42 118/72 (87) 100 07/18/19 19:15 119 44 100 Mechanical Ventilator 30 120 45 30 07/18/19 19:00 115 42 117/74 (88) 100 07/18/19 19:00 117/74 07/18/19 18:30 112 38 95/63 (74) 100 07/18/19 18:15 112 39 97/66 (76) 100 07/18/19 18:00 97/66 07/18/19 18:00 112 38 100/63 (75) 100 07/18/19 17:30 122 33 126/64 (84) 100 07/18/19 17:00 121 25 115/81 (92) 100 07/18/19 17:00 119/80 07/18/19 16:30 116 42 121/86 (98) 100 07/18/19 16:00 117 07/18/19 16:00 98.9 112 41 130/80 (97) 100 07/18/19 16:00 30 07/18/19 16:00 121/83 07/18/19 16:00 Mechanical Ventilator 07/18/19 15:36 99 28 100 Mechanical Ventilator 30 100 35 30 07/18/19 15:15 103 25 95/67 (76) 100 07/18/19 15:00 102/78 07/18/19 15:00 106 22 102/78 (86) 100 07/18/19 14:00 100 26 104/71 (82) 100 07/18/19 14:00 104/71 07/18/19 13:30 101 26 103/70 (81) 100 07/18/19 13:09 102 26 129/73 (91) 100 07/18/19 13:00 104 17 87/70 (76) 100 07/18/19 13:00 104/76 07/18/19 12:00 102 07/18/19 12:00 98.5 110 26 97/68 (78) 100 07/18/19 12:00 97/68 07/18/19 12:00 30 07/18/19 12:00 Mechanical Ventilator 07/18/19 11:45 112 31 111/86 (94) 100 07/18/19 11:30 112 26 92/71 (78) 100 07/18/19 11:15 119 23 93/71 (78) 100 07/18/19 11:12 113 27 100 Mechanical Ventilator 30 115 27 30 Intake and Output 07/18/19 07/19/19 18:59 06:59 Intake Total 777.39 ml 716.15 ml Balance 777.39 ml 716.15 ml Free Water 60 ml 50 ml IV Total 267.39 ml 246.15 ml Tube Feeding 420 ml 420 ml Other 30 ml # Bowel Movements 3 3 Microbiology Date/Time Source Procedure Growth Status 07/16/19 12:00 Nasopharynx Coronavirus COVID-19 PCR ([facility]) - Final Complete Objective HEAD AND NECK: No JVD. Tracheostomy in place. Left IJ HD catheter now in place LUNGS: Decreased breath sounds. CARDIOVASCULAR: Regular S1 and S2. Tachycardic. ABDOMEN: Soft. PEG in place EXTREMITIES: No pitting edema. Left FV Gio Engle MD Jul 19, 2019 11:12
--- NOTE | 2019-07-19 11:39 | Infectious Diseases Prog Note ---
Assessment/Plan Assessment/Plan IMPRESSION: 1. COVID19 pneumonia Positive: 05/27, 05/31 , 06/05, 06/09 ,06/17, 06/19, 06/23, 06/27, 07/03, 07/15 2. MRSA carrier. 3. Chronic kidney disease , end-stage renal disease. 4. COPD. 5. Hypertension. 6. Anemia. 7. Hypothyroidism. 8. Hyperlipidemia. 9. Major depression. 10. Leukocytosis 11. Hypotension 12. Hepatitis C 13. Hyperuricemia 14. Diarrhea 15. septic shock 16. Leukocytosis worsening 17. Bacteremia with Staph epidermidis Subsequent cultures negative RECOMMENDATIONS: will f/u CXR Will f/u Sputum culture Continue Levaquin Start on Cefepime Finished hydroxychloroquine. Subjective ROS Limited/Unobtainable: Yes Constitutional: Denies: fever Cardiovascular: Reports: other - on Levophed 6 jermaine Allergies: Coded Allergies: No Known Allergies (Unverified , 05/28/19) Objective Vital Signs Last 24 Hour Vital Signs Date Time Temp Pulse Resp B/P (MAP) Pulse Ox O2 Delivery O2 Flow Rate FiO2 07/19/19 10:00 128 36 97/75 (82) 100 07/19/19 09:30 131 41 107/77 (87) 100 07/19/19 09:00 137 31 103/80 (88) 100 07/19/19 08:30 143 43 109/75 (86) 100 07/19/19 08:00 99.7 130 35 98/75 (83) 100 07/19/19 08:00 30 07/19/19 08:00 142 07/19/19 07:30 131 35 114/76 (89) 92 07/19/19 07:10 148 41 100 Mechanical Ventilator 30 148 41 30 07/19/19 06:30 127 76 140/109 (119) 86 07/19/19 06:00 134 33 117/84 (95) 100 07/19/19 06:00 130/80 07/19/19 05:30 130 29 126/87 (100) 100 07/19/19 05:00 131 37 130/101 (111) 100 07/19/19 05:00 138/60 07/19/19 04:30 130 37 135/83 (100) 100 07/19/19 04:00 99.0 127 37 134/106 (115) 100 07/19/19 04:00 30 07/19/19 04:00 124 07/19/19 04:00 140/100 07/19/19 04:00 Mechanical Ventilator 07/19/19 04:00 99.0 127 37 134/106 (115) 100 07/19/19 03:30 126 35 118/81 (93) 100 07/19/19 03:30 126 35 118/81 (93) 100 07/19/19 03:00 124 32 109/79 (89) 100 07/19/19 03:00 130/81 07/19/19 03:00 124 32 109/79 (89) 100 07/19/19 03:00 111 39 99 Mechanical Ventilator 30 110 37 30 07/19/19 02:30 126 32 110/80 (90) 100 07/19/19 02:30 126 32 110/80 (90) 100 07/19/19 02:00 120/78 07/19/19 02:00 123 33 110/40 (63) 100 07/19/19 01:30 122 28 94/74 (81) 100 07/19/19 01:00 126 37 106/79 (88) 100 07/19/19 01:00 92/70 07/19/19 00:30 120 20 148/82 (104) 100 07/19/19 00:00 Mechanical Ventilator 07/19/19 00:00 128/80 07/19/19 00:00 98.8 121 108/83 (91) 100 07/19/19 00:00 30 07/18/19 23:30 119 29 110/80 (90) 100 07/18/19 23:00 110 34 100 Mechanical Ventilator 30 110 30 30 07/18/19 23:00 118 26 100/82 (88) 100 07/18/19 23:00 114/79 07/18/19 22:30 106 33 108/74 (85) 100 07/18/19 22:00 97 29 87/68 (74) 100 82 07/18/19 22:00 105/65 07/18/19 21:30 129 33 109/91 (97) 100 84 07/18/19 21:28 103/69 07/18/19 21:00 103/69 07/18/19 21:00 127 31 120/83 (95) 100 112 07/18/19 20:30 134 40 124/88 (100) 100 07/18/19 20:00 125/65 07/18/19 20:00 Mechanical Ventilator 07/18/19 20:00 84 07/18/19 20:00 30 07/18/19 20:00 99.0 126 52 125/65 (85) 100 07/18/19 19:30 117 42 118/72 (87) 100 07/18/19 19:15 119 44 100 Mechanical Ventilator 30 120 45 30 07/18/19 19:00 115 42 117/74 (88) 100 07/18/19 19:00 117/74 07/18/19 18:30 112 38 95/63 (74) 100 07/18/19 18:15 112 39 97/66 (76) 100 07/18/19 18:00 97/66 07/18/19 18:00 112 38 100/63 (75) 100 07/18/19 17:30 122 33 126/64 (84) 100 07/18/19 17:00 121 25 115/81 (92) 100 07/18/19 17:00 119/80 07/18/19 16:30 116 42 121/86 (98) 100 07/18/19 16:00 117 07/18/19 16:00 98.9 112 41 130/80 (97) 100 07/18/19 16:00 30 07/18/19 16:00 121/83 07/18/19 16:00 Mechanical Ventilator 07/18/19 15:36 99 28 100 Mechanical Ventilator 30 100 35 30 07/18/19 15:15 103 25 95/67 (76) 100 07/18/19 15:00 102/78 07/18/19 15:00 106 22 102/78 (86) 100 07/18/19 14:00 100 26 104/71 (82) 100 07/18/19 14:00 104/71 07/18/19 13:30 101 26 103/70 (81) 100 07/18/19 13:09 102 26 129/73 (91) 100 07/18/19 13:00 104 17 87/70 (76) 100 07/18/19 13:00 104/76 07/18/19 12:00 102 07/18/19 12:00 98.5 110 26 97/68 (78) 100 07/18/19 12:00 97/68 07/18/19 12:00 30 07/18/19 12:00 Mechanical Ventilator 07/18/19 11:45 112 31 111/86 (94) 100 Height (Feet): 6 Height (Inches): 1.00 Weight (Pounds): 184 HEENT: status post trach Respiratory/Chest: other - on ventilator, tachypneic Cardiovascular: tachycardia, other - HD & central line Abdomen: soft, non tender, other - GT feeding Extremities: no edema Microbiology Date/Time Source Procedure Growth Status 07/16/19 12:00 Nasopharynx Coronavirus COVID-19 PCR ([facility]) - Final Complete Current Medications Medications (Trade) Dose Ordered Sig/Anthony Route PRN Reason Start Time Stop Time Status Last Admin Dose Admin Acetaminophen (Tylenol) 650 mg Q4H PRN NG For Pain 07/11/19 08:00 08/10/19 07:59 07/18/19 09:07 Albuterol Sulfate (Proventil MDI) 2 puff Q4HRT INH 06/06/19 23:00 08/30/19 18:59 07/19/19 07:10 Chlorhexidine Gluconate (Michelle-Hex 2%) 1 applic DAILY@2000 TOPIC 06/07/19 20:00 09/05/19 19:59 07/18/19 21:20 Dextrose (Dextrose 50%) 25 ml Q30M PRN IV Hypoglycemia 06/20/19 19:30 09/18/19 19:29 Dextrose (Dextrose 50%) 50 ml Q30M PRN IV Hypoglycemia 06/20/19 19:30 09/18/19 19:29 Dopamine HCl/ Dextrose 250 ml @ 0 mls/hr Q24H PRN IV For hypotension 06/13/19 08:15 09/11/19 08:14 07/17/19 08:46 Enoxaparin Sodium (Lovenox) 30 mg DAILY SUBQ 06/07/19 09:00 08/27/19 08:59 07/19/19 08:48 Epoetin Aftab (Epoetin Aftab(ESRD on dialysis)) 10,000 unit FRI-FRI-FRI SUBQ 06/07/19 21:00 08/31/19 20:59 07/16/19 20:54 Haloperidol Lactate 5 mg/ Dextrose 56 ml @ 224 mls/hr Q6H PRN IVPB Agitation 07/11/19 15:00 08/25/19 14:59 07/15/19 02:36 Hydralazine HCl (Apresoline) 10 mg Q4H PRN IV Blood pressure over 160 systol 06/07/19 10:15 09/05/19 10:14 Insulin Aspart (NovoLOG) EVERY 6 HOURS SUBQ 06/21/19 00:00 09/19/19 00:00 07/19/19 06:00 Levofloxacin (Levaquin) 750 mg ONCE GT 07/18/19 14:00 07/25/19 13:59 07/18/19 13:15 Midodrine (Pro-Amatine) 10 mg Q8HR ORAL 07/17/19 14:00 10/15/19 10:29 07/19/19 05:45 Norepinephrine Bitartrate 8 mg/ Dextrose 283 ml @ 0 mls/hr Q24H IV 06/23/19 23:00 07/23/19 22:59 07/18/19 21:28 Sevelamer Carbonate (Renvela) 2,400 mg Q6HR NG 07/14/19 12:00 10/12/19 13:59 07/19/19 05:45 Ted Leyva MD Jul 19, 2019 11:39
--- NOTE | 2019-07-19 11:49 | Diagnostic Imaging Report ---
Indication: Shortness of breath Technique: One view of the chest Comparison: 07/13/2019 Findings: Hazy peripheral infiltrates on the right are probably unchanged. Stable satisfactory position of tracheostomy, left jugular temporary dialysis catheter, left subclavian central venous catheter. Impression: Unchanged, over 6 days, findings as above.
--- NOTE | 2019-07-19 11:59 | Hematology/Onc Progress Note ---
Assessment/Plan Assessment/Plan Assessment and Recs: # Anemia of chronic disease, likely related ot underlying kidney disease has COIVD19++++++ --> hgb trend 9-->8-->7.3-->7.9-->6.8->9.5-->10->8.3-->7.7-->7.1-->8.9->8.8->7.7 -->8.1 ->7.9-->7.7 -->8.2-->8.1 -->7.9-->8.5 -->9->9.2-->9.5-->10.7 -->9.8--> 10.2-->11.8 --> transfuse as needed, hgb goal >7 --> no evidence of hemolysis --> peripheral smear has been reviewed --> epogen started 3 x a week ==>> transfuse 06/08, 06/15 # Leukocytosis likely related to suspected COVID-19 virus infection --> completed plaquenil --> trend smear as needed --> wbc trend: 4-->11-->14.5-->21-->26-->21->24--.28-->23-->19-->16.2-->21--> 11.2 -->12.5-->12.3-->12.4-->18.5-->18.5-->17->13-->18.2 --> pulm is aware --> on abx cefepime/vanc->zosyn/vanc-->dom/vanc-->dom --> pressors as needed --> 06/27 covid 19++ # Thrombocytopenia/Lymphopenia --> likely related to covid19 --> plt 129k-->186k-->251-->285-->384 -->430-->539-->515-->447-->451-->404 --> abx: dom/vanc # Respiratory failure with covid19+ --> s/p vent/trach --> weaning # Possible Pneumonia --> abx completed --> 07/13 cxr: Improved right lung infiltrates. # Cardiomegaly # Transaminitis with Elevated AST # COPD # Chronic Kidney Disease --> per renal hd --> s/p right femoral cath 07/02 # Hypertension # Dvt ppx lovenox # peg Appreciate consultation and ernesto Rn Subjective HEENT: Denies: no symptoms, eye pain, blurred vision, tearing, double vision, ear pain, ear discharge, nose pain, nose congestion, throat pain, throat swelling, mouth pain, mouth swelling, other Cardiovascular: Denies: no symptoms, chest pain, edema, irregular heart rate, lightheadedness, palpitations, syncope, other Respiratory: Denies: no symptoms, cough, shortness of breath, SOB with excertion, SOB at rest, sputum, wheezing, other Gastrointestinal/Abdominal: Denies: no symptoms, abdomen distended, abdominal pain, black stools, tarry stools, blood in stool, constipated, diarrhea, difficulty swallowing, nausea, poor appetite, poor fluid intake, rectal bleeding , vomiting, other Endocrine: Denies: no symptoms, excessive sweating, flushing, intolerance to cold, intolerance to heat, increased hunger, increased thirst, increased urine, unexplained weight gain, unexplained weight loss, other Hematologic/Lymphatic: Denies: no symptoms, anemia, easy bleeding, easy bruising, adenopathy, other Allergies: Coded Allergies: No Known Allergies (Unverified , 05/28/19) Subjective 06/01 nv, extremely agitated, not allowing labs draws, no night sweats, cbc ordered 06/02 confused, restraints, on abx and plaquenil, hgb 7.9, nrb 15 L 06/03 is with nonrebreather, but not compliant, remains confused 06/05 no bleeding, labs noted, no major bleeding, otherwise comfortable 06/06 labs reviewed, no bleeding, meds noted, no night sweats, on levo and nonrebreather 06/07 labs noted, no bleeding, meds reviewed, no bleeding, wbc higher 06/08 to get 2 units prbc, no night sweats, meds reviewed 06/09 is on cefepime and vanc, labs noted, ernesto Rn, no bleeding 06/10 no major changes, labs reviewed, wbc 28k, on abx, cefepime 06/12 remains in icu, labs noted, no night sweats or bleeding 06/13 sluggish pupils, remains agitated, per psych, no bleding, on vent, wbc sitll high 06/14 still confused, remains on vent, with ng, running nepro, on pressors 06/15 icu, febrile, non verbal, hgb 7.1, blood pending, completed plaq 06/16 remains in the icu, nonverbal, plan for hd tomorrow, ernesto rn 06/17 in icu, on pressor, nonverbal, on abx, no bleeding 06/19 no bleeding, nonverbal in icu, hgb is 7.7 06/20 on zosyn, tube feeds, vent, labs noted, in icu, nv 06/21 gettng hd as per renal, in icu, nv, no bleeding, tfs 06/22 icu, cxr with slight improvement, cooling blanket, weaning today 06/23 wewaning, in icu, on vent, abx, and pressors as needed, labs noted 06/24 failed weaning, off abx, completed plaquenil, hgb 8.1 06/26 icu, weaning for this am, afebrile, hgb 8 06/27 in icu, remains comotose, weaning started on peep, no night sweats 06/28 weaning today, off abx, restraints, no distress, h/h stable 06/29 covid 19+, failed weaning, no blood transfusion needed 06/30 icu, on vent, labs reviewed, no distress 07/01 in icu, may need trach, remains on hd per renal, labs noted 07/02 s/p right fem cath, failed wean, no new orders, h/h stable 07/03 is somewhat more responsive, on abx, no bleeding, weaning and HD today 07/04 hd as per renal, weaning off vent, no bleeding today 07/05 obtunded, no bleding overnight, with hd for tomorrow noted, vanc 07/08 no events, remains with trach/vent, ernesto Rn, no bleeding, cbc is noted 07/09 no overnight events, peg for friday pending consent 07/10 off pressors, vent, restraints, labs reviewed 07/11 no acute events is on pressors, intubated, agitated still 07/12 is resting comfortably, no bleeding, emds reviewed and noted 07/13 icu, no events, trach, cxr reviewed, 07/14 is onv ent, tachypneic and tachycardic, labs noted 07/15 remains confused, intubated, dw Rn, no bleeding 07/17 icu, cxr improving infiltrates, levo gtt, airborne/contact isolation 07/18 is on broad spectrum abx, is on levaquin and cefepime, wbc 16 agitated Objective Objective Current Medications Medications (Trade) Dose Ordered Sig/Anthony Route PRN Reason Start Time Stop Time Status Last Admin Dose Admin Acetaminophen (Tylenol) 650 mg Q4H PRN NG For Pain 07/11/19 08:00 08/10/19 07:59 07/18/19 09:07 Albuterol Sulfate (Proventil MDI) 2 puff Q4HRT INH 06/06/19 23:00 08/30/19 18:59 07/19/19 11:15 Cefepime HCl 1 gm/ Dextrose 55 ml @ 110 mls/hr ONCE IVPB 07/19/19 12:00 07/19/19 14:00 Cefepime HCl 500 mg/Dextrose 55 ml @ 110 mls/hr Q24H IV 07/20/19 12:00 07/27/19 11:59 Chlorhexidine Gluconate (Michelle-Hex 2%) 1 applic DAILY@2000 TOPIC 06/07/19 20:00 09/05/19 19:59 07/18/19 21:20 Dextrose (Dextrose 50%) 25 ml Q30M PRN IV Hypoglycemia 06/20/19 19:30 09/18/19 19:29 Dextrose (Dextrose 50%) 50 ml Q30M PRN IV Hypoglycemia 06/20/19 19:30 09/18/19 19:29 Dopamine HCl/ Dextrose 250 ml @ 0 mls/hr Q24H PRN IV For hypotension 06/13/19 08:15 09/11/19 08:14 07/17/19 08:46 Enoxaparin Sodium (Lovenox) 30 mg DAILY SUBQ 06/07/19 09:00 08/27/19 08:59 07/19/19 08:48 Epoetin Aftab (Epoetin Aftab(ESRD on dialysis)) 10,000 unit FRI-FRI-FRI SUBQ 06/07/19 21:00 08/31/19 20:59 07/16/19 20:54 Haloperidol Lactate 5 mg/ Dextrose 56 ml @ 224 mls/hr Q6H PRN IVPB Agitation 07/11/19 15:00 08/25/19 14:59 07/15/19 02:36 Hydralazine HCl (Apresoline) 10 mg Q4H PRN IV Blood pressure over 160 systol 06/07/19 10:15 09/05/19 10:14 Insulin Aspart (NovoLOG) EVERY 6 HOURS SUBQ 06/21/19 00:00 09/19/19 00:00 07/19/19 06:00 Levofloxacin (Levaquin) 500 mg EVERY OTHER DAY GT 07/21/19 09:00 07/28/19 08:59 Midodrine (Pro-Amatine) 10 mg Q8HR ORAL 07/17/19 14:00 10/15/19 10:29 07/19/19 05:45 Norepinephrine Bitartrate 8 mg/ Dextrose 283 ml @ 0 mls/hr Q24H IV 06/23/19 23:00 07/23/19 22:59 07/18/19 21:28 Sevelamer Carbonate (Renvela) 2,400 mg Q6HR NG 07/14/19 12:00 10/12/19 13:59 07/19/19 05:45 Last 24 Hour Vital Signs Date Time Temp Pulse Resp B/P (MAP) Pulse Ox O2 Delivery O2 Flow Rate FiO2 07/19/19 11:15 132 32 100 Mechanical Ventilator 30 132 32 30 07/19/19 10:00 128 36 97/75 (82) 100 07/19/19 09:30 131 41 107/77 (87) 100 07/19/19 09:00 137 31 103/80 (88) 100 07/19/19 08:30 143 43 109/75 (86) 100 07/19/19 08:00 99.7 130 35 98/75 (83) 100 07/19/19 08:00 30 07/19/19 08:00 142 07/19/19 07:30 131 35 114/76 (89) 92 07/19/19 07:10 148 41 100 Mechanical Ventilator 30 148 41 30 07/19/19 06:30 127 76 140/109 (119) 86 07/19/19 06:00 134 33 117/84 (95) 100 07/19/19 06:00 130/80 07/19/19 05:30 130 29 126/87 (100) 100 07/19/19 05:00 131 37 130/101 (111) 100 07/19/19 05:00 138/60 07/19/19 04:30 130 37 135/83 (100) 100 07/19/19 04:00 99.0 127 37 134/106 (115) 100 07/19/19 04:00 30 07/19/19 04:00 124 07/19/19 04:00 140/100 07/19/19 04:00 Mechanical Ventilator 07/19/19 04:00 99.0 127 37 134/106 (115) 100 07/19/19 03:30 126 35 118/81 (93) 100 07/19/19 03:30 126 35 118/81 (93) 100 07/19/19 03:00 124 32 109/79 (89) 100 07/19/19 03:00 130/81 07/19/19 03:00 124 32 109/79 (89) 100 07/19/19 03:00 111 39 99 Mechanical Ventilator 30 110 37 30 07/19/19 02:30 126 32 110/80 (90) 100 07/19/19 02:30 126 32 110/80 (90) 100 07/19/19 02:00 120/78 07/19/19 02:00 123 33 110/40 (63) 100 07/19/19 01:30 122 28 94/74 (81) 100 07/19/19 01:00 126 37 106/79 (88) 100 07/19/19 01:00 92/70 07/19/19 00:30 120 20 148/82 (104) 100 07/19/19 00:00 Mechanical Ventilator 07/19/19 00:00 128/80 07/19/19 00:00 98.8 121 108/83 (91) 100 07/19/19 00:00 30 07/18/19 23:30 119 29 110/80 (90) 100 07/18/19 23:00 110 34 100 Mechanical Ventilator 30 110 30 30 07/18/19 23:00 118 26 100/82 (88) 100 07/18/19 23:00 114/79 07/18/19 22:30 106 33 108/74 (85) 100 07/18/19 22:00 97 29 87/68 (74) 100 82 07/18/19 22:00 105/65 07/18/19 21:30 129 33 109/91 (97) 100 84 07/18/19 21:28 103/69 07/18/19 21:00 103/69 07/18/19 21:00 127 31 120/83 (95) 100 112 07/18/19 20:30 134 40 124/88 (100) 100 07/18/19 20:00 125/65 07/18/19 20:00 Mechanical Ventilator 07/18/19 20:00 84 07/18/19 20:00 30 07/18/19 20:00 99.0 126 52 125/65 (85) 100 07/18/19 19:30 117 42 118/72 (87) 100 07/18/19 19:15 119 44 100 Mechanical Ventilator 30 120 45 30 07/18/19 19:00 115 42 117/74 (88) 100 07/18/19 19:00 117/74 07/18/19 18:30 112 38 95/63 (74) 100 07/18/19 18:15 112 39 97/66 (76) 100 07/18/19 18:00 97/66 07/18/19 18:00 112 38 100/63 (75) 100 07/18/19 17:30 122 33 126/64 (84) 100 07/18/19 17:00 121 25 115/81 (92) 100 07/18/19 17:00 119/80 07/18/19 16:30 116 42 121/86 (98) 100 07/18/19 16:00 117 07/18/19 16:00 98.9 112 41 130/80 (97) 100 07/18/19 16:00 30 07/18/19 16:00 121/83 07/18/19 16:00 Mechanical Ventilator 07/18/19 15:36 99 28 100 Mechanical Ventilator 30 100 35 30 07/18/19 15:15 103 25 95/67 (76) 100 07/18/19 15:00 102/78 07/18/19 15:00 106 22 102/78 (86) 100 07/18/19 14:00 100 26 104/71 (82) 100 07/18/19 14:00 104/71 6/7/20 13:30 101 26 103/70 (81) 100 07/18/19 13:09 102 26 129/73 (91) 100 07/18/19 13:00 104 17 87/70 (76) 100 07/18/19 13:00 104/76 07/18/19 12:00 102 07/18/19 12:00 98.5 110 26 97/68 (78) 100 07/18/19 12:00 97/68 07/18/19 12:00 30 07/18/19 12:00 Mechanical Ventilator 07/18/19 11:45 112 31 111/86 (94) 100 07/18/19 11:30 112 26 92/71 (78) 100 07/18/19 11:15 119 23 93/71 (78) 100 07/18/19 11:12 113 27 100 Mechanical Ventilator 30 115 27 30 07/18/19 11:00 100/71 07/18/19 11:00 122 30 100/71 (81) 100 07/18/19 10:54 102/56 07/18/19 10:15 122 28 96/66 (76) 100 07/18/19 10:00 87/63 07/18/19 10:00 126 29 87/63 (71) 100 07/18/19 09:52 128 35 96/57 (70) 100 07/18/19 09:45 131 29 86/63 (71) 100 07/18/19 09:30 140 48 113/94 (100) 100 07/18/19 09:15 138 46 115/80 (92) 100 07/18/19 09:00 113/86 07/18/19 09:00 98.0 129 51 113/86 (95) 100 07/18/19 08:15 134 33 75/56 (62) 07/18/19 08:00 Mechanical Ventilator 07/18/19 08:00 128 32 64/47 (53) 07/18/19 08:00 64/47 07/18/19 08:00 30 07/18/19 08:00 132 07/18/19 07:51 120 28 100 Mechanical Ventilator 30 121 29 30 07/18/19 07:00 130 44 103/67 (79) 100 07/18/19 07:00 97/66 6/7/20 06:50 77/54 07/18/19 06:30 126 35 82/60 (67) 100 07/18/19 06:00 97.9 136 35 104/80 (88) 100 07/18/19 05:30 136 46 95/68 (77) 100 07/18/19 05:00 102/64 07/18/19 05:00 144 45 111/95 (100) 100 07/18/19 04:30 137 41 144/102 (116) 100 07/18/19 04:00 Mechanical Ventilator 07/18/19 04:00 140 07/18/19 04:00 144/92 07/18/19 04:00 98.9 104 28 144/92 (109) 100 07/18/19 04:00 30 07/18/19 03:54 94 26 100 Mechanical Ventilator 30 99 28 30 07/18/19 03:30 98 25 112/74 (87) 100 07/18/19 03:00 108/66 07/18/19 03:00 103 22 108/66 (80) 100 07/18/19 02:45 104 20 98/76 (83) 100 07/18/19 02:30 105 27 87/64 (72) 100 07/18/19 02:15 124 38 108/81 (90) 100 07/18/19 02:00 102/76 07/18/19 02:00 119 36 102/76 (85) 100 07/18/19 01:45 113 34 96/71 (79) 100 07/18/19 01:30 120 31 159/89 (112) 95 07/18/19 01:00 104 30 131/80 (97) 100 07/18/19 01:00 131/80 07/18/19 00:45 91 25 130/70 (90) 100 07/18/19 00:30 92 22 131/81 (98) 100 07/18/19 00:15 92 25 110/63 (79) 100 07/18/19 00:00 30 07/18/19 00:00 98.3 98 26 100/61 (74) 100 07/18/19 00:00 100/61 07/18/19 00:00 Mechanical Ventilator 07/18/19 00:00 91 07/17/19 23:44 106 28 100 Mechanical Ventilator 30 106 29 30 07/17/19 23:30 113 31 119/67 (84) 100 07/17/19 23:00 80 26 115/79 (91) 100 07/17/19 23:00 115/79 07/17/19 22:30 81 26 112/72 (85) 100 07/17/19 22:00 114/74 07/17/19 22:00 81 26 114/74 (87) 100 07/17/19 21:30 81 25 118/74 (89) 100 07/17/19 21:00 81 27 112/76 (88) 100 07/17/19 21:00 112/76 07/17/19 20:30 81 26 120/83 (95) 100 07/17/19 20:00 98.6 88 26 113/70 (84) 100 07/17/19 20:00 30 07/17/19 20:00 113/70 07/17/19 20:00 116 07/17/19 20:00 Mechanical Ventilator 07/17/19 19:35 112 33 100 Mechanical Ventilator 30 109 33 30 07/17/19 19:30 110 33 116/68 (84) 100 07/17/19 19:00 112 40 128/82 (97) 100 07/17/19 18:15 116 33 102/73 (83) 100 07/17/19 18:00 110 32 106/82 (90) 100 07/17/19 17:00 99 32 102/64 (77) 100 07/17/19 16:30 120 35 102/69 (80) 100 07/17/19 16:15 127 39 96/77 (83) 100 07/17/19 16:00 Mechanical Ventilator 07/17/19 16:00 30 07/17/19 16:00 98.9 125 31 98/73 (81) 100 07/17/19 16:00 87 07/17/19 15:58 111 29 30 07/17/19 15:00 94 26 115/67 (83) 100 07/17/19 14:00 91 19 112/62 (79) 100 07/17/19 13:15 102 32 97/63 (74) 100 07/17/19 13:00 111 37 115/69 (84) 100 07/17/19 13:00 97/63 07/17/19 12:00 98.0 95 26 109/63 (78) 100 07/17/19 12:00 30 6/6/20 12:00 111/59 07/17/19 12:00 93 07/17/19 12:00 Mechanical Ventilator Intake and Output 07/18/19 07/19/19 19:00 07:00 Intake Total 802.84 ml 703.43 ml Balance 802.84 ml 703.43 ml Free Water 60 ml 50 ml IV Total 292.84 ml 233.43 ml Tube Feeding 420 ml 420 ml Other 30 ml # Bowel Movements 3 3 Labs Test 07/17/19 05:00 07/18/19 04:15 White Blood Count 15.0 K/UL (4.8-10.8) 18.2 K/UL (4.8-10.8) Red Blood Count 3.80 M/UL (4.70-6.10) 4.08 M/UL (4.70-6.10) Hemoglobin 11.0 G/DL (14.2-18.0) 11.8 G/DL (14.2-18.0) Hematocrit 34.1 % (42.0-52.0) 36.4 % (42.0-52.0) Mean Corpuscular Volume 90 FL (80-99) 89 FL (80-99) Mean Corpuscular Hemoglobin 29.0 PG (27.0-31.0) 28.9 PG (27.0-31.0) Mean Corpuscular Hemoglobin Concent 32.3 G/DL (32.0-36.0) 32.3 G/DL (32.0-36.0) Red Cell Distribution Width 16.1 % (11.6-14.8) 16.0 % (11.6-14.8) Platelet Count 408 K/UL (150-450) 404 K/UL (150-450) Mean Platelet Volume 6.2 FL (6.5-10.1) 7.0 FL (6.5-10.1) Neutrophils (%) (Auto) 82.7 % (45.0-75.0) % (45.0-75.0) Lymphocytes (%) (Auto) 7.3 % (20.0-45.0) % (20.0-45.0) Monocytes (%) (Auto) 7.6 % (1.0-10.0) % (1.0-10.0) Eosinophils (%) (Auto) 1.6 % (0.0-3.0) % (0.0-3.0) Basophils (%) (Auto) 0.8 % (0.0-2.0) % (0.0-2.0) Sodium Level 133 MMOL/L (136-145) 134 MMOL/L (136-145) Potassium Level 4.4 MMOL/L (3.5-5.1) 4.7 MMOL/L (3.5-5.1) Chloride Level 92 MMOL/L (98-107) 91 MMOL/L (98-107) Carbon Dioxide Level 20 MMOL/L (21-32) 25 MMOL/L (21-32) Anion Gap 21 mmol/L (5-15) 18 mmol/L (5-15) Blood Urea Nitrogen 75 mg/dL (7-18) 55 mg/dL (7-18) Creatinine 9.3 MG/DL (0.55-1.30) 7.6 MG/DL (0.55-1.30) Estimat Glomerular Filtration Rate 5.7 mL/min (>60) 7.2 mL/min (>60) Glucose Level 161 MG/DL (74-106) 231 MG/DL (74-106) Uric Acid 6.7 MG/DL (2.6-7.2) Calcium Level 10.0 MG/DL (8.5-10.1) 9.7 MG/DL (8.5-10.1) Phosphorus Level 6.1 MG/DL (2.5-4.9) 5.2 MG/DL (2.5-4.9) Magnesium Level 3.0 MG/DL (1.8-2.4) Total Bilirubin 0.4 MG/DL (0.2-1.0) 0.5 MG/DL (0.2-1.0) Aspartate Amino Transf (AST/SGOT) 49 U/L (15-37) 68 U/L (15-37) Alanine Aminotransferase (ALT/SGPT) 14 U/L (12-78) 22 U/L (12-78) Alkaline Phosphatase 170 U/L (46-116) 179 U/L (46-116) C-Reactive Protein, Quantitative 7.5 mg/dL (0.00-0.90) Pro-B-Type Natriuretic Peptide 37061 pg/mL (0-125) Total Protein 9.8 G/DL (6.4-8.2) 10.0 G/DL (6.4-8.2) Albumin 3.0 G/DL (3.4-5.0) 3.1 G/DL (3.4-5.0) Globulin 6.8 g/dL 6.9 g/dL Albumin/Globulin Ratio 0.4 (1.0-2.7) 0.4 (1.0-2.7) Differential Total Cells Counted 100 Neutrophils % (Manual) 81 % (45-75) Lymphocytes % (Manual) 8 % (20-45) Monocytes % (Manual) 10 % (1-10) Eosinophils % (Manual) 1 % (0-3) Basophils % (Manual) 0 % (0-2) Band Neutrophils 0 % (0-8) Platelet Estimate Adequate Platelet Morphology Normal Anisocytosis 1+ Height (Feet): 6 Height (Inches): 1.00 Weight (Pounds): 184 Objective General: nv, confused, sedated Heent: bilateral eye normal inspection, bilateral eye PERRL ++Ng Respiratory: normal breath sounds, no respiratory distress, intubated/vent +++ trach+++ Cardiovascular: regular rate, rhythm, no edema Gastrointestinal: normal inspection, soft, non-distended, peg+ Rectal: deferred Musculoskeletal: normal range of motion, non-tender, R fem cath++ Neurologic: alert, motor strength/tone normal, sensory intact, responsive, speech normal Skin: Decubitus/Ulcer - See RN skin exam. : jamaal+ Greg Cabral MD Jul 19, 2019 11:59
[2019-07-19] MEDS ORDERED: Cefepime HCl 1 GM in D5W 55 ML IVPB SCH (12:00)
[2019-07-19] MEDS: NOREPINEPHRINE BITARTRATE IV SCH ×6 (12:07→20:45)
[2019-07-19] MEDS: D5W IV SCH ×6 (12:07→20:45)
[2019-07-19] MEDS: Acetaminophen 650mg/20.3ml NG PRN ×2 (12:07→22:49)
--- NOTE | 2019-07-19 13:36 | Surgery Progress Note ---
Surgery Progress Note Subjective Procedure Performed Right femoral temporary hemodialysis catheter removal Additional Comments on levophed weaning peep 5 fi02 30 Objective Last 24 Hour Vital Signs Date Time Temp Pulse Resp B/P (MAP) Pulse Ox O2 Delivery O2 Flow Rate FiO2 07/19/19 12:30 142 36 101/66 (78) 100 07/19/19 12:30 140 34 116/77 (90) 100 07/19/19 12:07 100/74 07/19/19 12:00 121 07/19/19 12:00 30 07/19/19 12:00 100.5 142 36 100/74 (83) 100 07/19/19 12:00 139 36 115/93 (100) 100 07/19/19 11:30 142 37 101/73 (82) 100 07/19/19 11:30 139 37 110/72 (85) 100 07/19/19 11:15 132 32 100 Mechanical Ventilator 30 132 32 30 07/19/19 11:00 136 35 100/69 (79) 100 07/19/19 11:00 140 35 94/73 (80) 100 07/19/19 10:30 135 34 97/83 (88) 100 07/19/19 10:30 132 35 91/76 (81) 100 07/19/19 10:00 128 36 97/75 (82) 100 07/19/19 09:30 131 41 107/77 (87) 100 07/19/19 09:00 137 31 103/80 (88) 100 07/19/19 08:30 143 43 109/75 (86) 100 07/19/19 08:00 99.7 130 35 98/75 (83) 100 07/19/19 08:00 30 07/19/19 08:00 142 07/19/19 07:30 131 35 114/76 (89) 92 07/19/19 07:10 148 41 100 Mechanical Ventilator 30 148 41 30 07/19/19 06:30 127 76 140/109 (119) 86 07/19/19 06:00 134 33 117/84 (95) 100 07/19/19 06:00 130/80 07/19/19 05:30 130 29 126/87 (100) 100 07/19/19 05:00 131 37 130/101 (111) 100 07/19/19 05:00 138/60 07/19/19 04:30 130 37 135/83 (100) 100 07/19/19 04:00 99.0 127 37 134/106 (115) 100 07/19/19 04:00 30 07/19/19 04:00 124 07/19/19 04:00 140/100 07/19/19 04:00 Mechanical Ventilator 07/19/19 04:00 99.0 127 37 134/106 (115) 100 07/19/19 03:30 126 35 118/81 (93) 100 07/19/19 03:30 126 35 118/81 (93) 100 07/19/19 03:00 124 32 109/79 (89) 100 07/19/19 03:00 130/81 07/19/19 03:00 124 32 109/79 (89) 100 07/19/19 03:00 111 39 99 Mechanical Ventilator 30 110 37 30 07/19/19 02:30 126 32 110/80 (90) 100 07/19/19 02:30 126 32 110/80 (90) 100 07/19/19 02:00 120/78 07/19/19 02:00 123 33 110/40 (63) 100 07/19/19 01:30 122 28 94/74 (81) 100 07/19/19 01:00 126 37 106/79 (88) 100 07/19/19 01:00 92/70 07/19/19 00:30 120 20 148/82 (104) 100 07/19/19 00:00 Mechanical Ventilator 07/19/19 00:00 128/80 07/19/19 00:00 98.8 121 108/83 (91) 100 07/19/19 00:00 30 07/18/19 23:30 119 29 110/80 (90) 100 07/18/19 23:00 110 34 100 Mechanical Ventilator 30 110 30 30 07/18/19 23:00 118 26 100/82 (88) 100 07/18/19 23:00 114/79 07/18/19 22:30 106 33 108/74 (85) 100 07/18/19 22:00 97 29 87/68 (74) 100 82 07/18/19 22:00 105/65 07/18/19 21:30 129 33 109/91 (97) 100 84 07/18/19 21:28 103/69 07/18/19 21:00 103/69 07/18/19 21:00 127 31 120/83 (95) 100 112 07/18/19 20:30 134 40 124/88 (100) 100 07/18/19 20:00 125/65 07/18/19 20:00 Mechanical Ventilator 07/18/19 20:00 84 07/18/19 20:00 30 07/18/19 20:00 99.0 126 52 125/65 (85) 100 07/18/19 19:30 117 42 118/72 (87) 100 07/18/19 19:15 119 44 100 Mechanical Ventilator 30 120 45 30 07/18/19 19:00 115 42 117/74 (88) 100 07/18/19 19:00 117/74 07/18/19 18:30 112 38 95/63 (74) 100 07/18/19 18:15 112 39 97/66 (76) 100 07/18/19 18:00 97/66 07/18/19 18:00 112 38 100/63 (75) 100 07/18/19 17:30 122 33 126/64 (84) 100 07/18/19 17:00 121 25 115/81 (92) 100 07/18/19 17:00 119/80 07/18/19 16:30 116 42 121/86 (98) 100 07/18/19 16:00 117 07/18/19 16:00 98.9 112 41 130/80 (97) 100 07/18/19 16:00 30 07/18/19 16:00 121/83 07/18/19 16:00 Mechanical Ventilator 07/18/19 15:36 99 28 100 Mechanical Ventilator 30 100 35 30 07/18/19 15:15 103 25 95/67 (76) 100 07/18/19 15:00 102/78 07/18/19 15:00 106 22 102/78 (86) 100 07/18/19 14:00 100 26 104/71 (82) 100 07/18/19 14:00 104/71 I&O Intake and Output 07/18/19 07/19/19 19:00 07:00 Intake Total 802.84 ml 703.43 ml Balance 802.84 ml 703.43 ml Free Water 60 ml 50 ml IV Total 292.84 ml 233.43 ml Tube Feeding 420 ml 420 ml Other 30 ml # Bowel Movements 3 3 Dressing: other Wound: other Drains: other Cardiovascular: RSR Respiratory: decreased breath sounds Abdomen: soft, non-tender, present bowel sounds Extremities: no tenderness, no cyanosis Plan Problems: (1) Suspected COVID-19 virus infection (2) HTN (hypertension) (3) CASSANDRA (acute kidney injury) Assessment & Plan: Needs urgent HD needs access patient okay and consented see note will follow with recs new line placed discussed with team and nephrology HD line functional when checked has TPA now please use appropriately Cathflo used again this flow during dialysis on 430 was low. Will monitor may need line change 5/4 plan for HD as per renal may need to take fluid off with HD edema anasarca dressings saturated and changed will monitor cont with HD IJ left line placed for HD given extent of prior line in place. leukocytosis blood cx negative may need to change out line (4) Anemia in chronic kidney disease (CKD) (5) Anemia (6) Renal failure (7) Suspected COVID-19 virus infection Assessment & Plan: Pt deconditioned and despite all skin preventions Pt noted to have developed several pressure injuries. . Stable dry eschar noted to clefts of R and L ears. No erythema noted . DTPI noted to L trochanter. Base of injury is maroon in colour with marginal erythema along borders. Partially opened DTPI Sacrum, R and L Buttocks. Base of wound is maroon with two small open wounds L sacrum and L buttocks. Pt has an APM/MOMO Mattress overlay and is being positioned with pillows as per tolerance and within protocols. worsening despite medical efforts will cont to provide therapy Tx.Plan: Apply Cavilon Skin Barrier to both ears Daily and prn. Apply Moisture Barrier Paste to Sacrum,R and L Buttocks. Cover with Optifoam drsgs. Change every 3 days and PRN. Apply Cavilon Skin Barrier to R and L trochanter. Cover each site with Optifoam drsgs.Change every 7 days and PRN. Apply Cavilon Skin Barrier to both heels. Cover each heel with Optifoam drsg. Change every 7 days and prn. Off-load heels with pillow. Reposition at least every 2hours or as tolerated. APM/MOMO Mattress overlay. (8) COVID-19 Assessment & Plan: COVID + c diff negative febrile leukocytosis renal insufficiency see above cont resp care Rx as per ID worsening on vent support now cxr noted on pressors prognosis guarded repeat covid ++ weaning vent and pressors off slowly showing improvement slowly recovering will need trach as unable to wean vent safely called and spoke with country conservatorship. consent obtained s/p trach pending peg Yaniv Mast Jul 19, 2019 13:36
[2019-07-19] MEDS: fentaNYL 2500mcg/NS 250ml 250 ML IV SCH (14:43)
[2019-07-19] MEDS: Dyna-Hex 2% Top Sol 2oz TOPIC SCH (20:45)
[2019-07-19] MEDS: Epoetin Alfa-EPBX(ESRD on dialysis)10,000 unit/ml vial SUBQ SCH (21:00)
--- NOTE | 2019-07-19 22:40 | General Progress Note ---
Assessment/Plan Problem List: (1) HTN (hypertension) ICD Codes: I10 - Essential (primary) hypertension SNOMED: 40543985 (2) CASSANDRA (acute kidney injury) ICD Codes: N17.9 - Acute kidney failure, unspecified SNOMED: 9001920, 10288341 (3) Anemia in chronic kidney disease (CKD) ICD Codes: N18.9 - Chronic kidney disease, unspecified; D63.1 - Anemia in chronic kidney disease SNOMED: 400363045 (4) Renal failure ICD Codes: N19 - Unspecified kidney failure SNOMED: 62224973 (5) Respiratory failure requiring intubation ICD Codes: J96.90 - Respiratory failure, unspecified, unspecified whether with hypoxia or hypercapnia; A41.89 - Other specified sepsis SNOMED: 014438142, 247123782 (6) Pneumonia due to COVID-19 virus ICD Codes: U07.1 - COVID-19; J12.89 - Other viral pneumonia SNOMED: 427085475, 966363977 (7) Sepsis due to severe acute respiratory syndrome coronavirus 2 (SARS-CoV-2) ICD Codes: U07.1 - COVID-19; A41.89 - Other specified sepsis SNOMED: 558029230, 242072338 Status: progressing, unchanged Assessment/Plan: trach and peg prn pressors getting diaylsis anemia arf supportive therapy afebrile s/p covid pna Subjective ROS Limited/Unobtainable: Yes Allergies: Coded Allergies: No Known Allergies (Unverified , 05/28/19) Objective Last 24 Hour Vital Signs Date Time Temp Pulse Resp B/P (MAP) Pulse Ox O2 Delivery O2 Flow Rate FiO2 07/19/19 22:00 95/95 07/19/19 22:00 133 30 95/65 (75) 100 07/19/19 21:30 134 30 102/81 (88) 100 07/19/19 21:00 139 30 99/60 (73) 99 07/19/19 21:00 99/60 07/19/19 20:45 97/63 07/19/19 20:45 144 36 97/63 (74) 100 07/19/19 20:30 150 56 93/66 (75) 93 07/19/19 20:00 Mechanical Ventilator 07/19/19 20:00 60 07/19/19 20:00 101.2 152 45 103/84 (90) 94 07/19/19 19:30 137 33 92/69 (77) 100 07/19/19 19:22 123 34 98 Mechanical Ventilator 60 142 47 30 07/19/19 19:00 145 31 125/74 (91) 100 07/19/19 18:30 143 35 114/89 (97) 100 07/19/19 18:00 128 30 135/90 (105) 100 07/19/19 18:00 135/90 07/19/19 17:30 128 29 103/72 (82) 100 07/19/19 17:00 72/34 07/19/19 17:00 126 32 94/67 (76) 100 07/19/19 16:45 96/67 07/19/19 16:40 88/64 07/19/19 16:35 86/58 07/19/19 16:30 126 32 93/62 (72) 100 07/19/19 16:30 88/61 07/19/19 16:25 85/62 07/19/19 16:20 71/55 07/19/19 16:15 57/39 07/19/19 16:10 71/43 07/19/19 16:05 68/42 07/19/19 16:02 136 07/19/19 16:00 100 07/19/19 16:00 72/34 07/19/19 16:00 98.0 137 29 72/34 (47) 98 07/19/19 16:00 Mechanical Ventilator 07/19/19 15:45 65/43 07/19/19 15:30 141 43 111/84 (93) 98 07/19/19 15:30 53/42 07/19/19 15:10 142 47 98 Mechanical Ventilator 100 142 47 30 07/19/19 15:00 141 43 128/85 (99) 98 07/19/19 14:43 45 91/61 Mechanical Ventilator 100 07/19/19 14:30 142 42 91/61 (71) 97 07/19/19 14:00 141 41 90/62 (71) 94 07/19/19 13:30 139 35 122/78 (93) 100 07/19/19 13:00 140 34 107/80 (89) 100 07/19/19 12:30 142 36 101/66 (78) 100 07/19/19 12:30 140 34 116/77 (90) 100 07/19/19 12:07 100/74 07/19/19 12:00 121 07/19/19 12:00 30 07/19/19 12:00 100.5 142 36 100/74 (83) 100 07/19/19 12:00 Mechanical Ventilator 07/19/19 12:00 139 36 115/93 (100) 100 07/19/19 11:30 142 37 101/73 (82) 100 07/19/19 11:30 139 37 110/72 (85) 100 07/19/19 11:15 132 32 100 Mechanical Ventilator 30 132 32 30 07/19/19 11:00 136 35 100/69 (79) 100 07/19/19 11:00 140 35 94/73 (80) 100 07/19/19 10:30 135 34 97/83 (88) 100 07/19/19 10:30 132 35 91/76 (81) 100 07/19/19 10:00 128 36 97/75 (82) 100 07/19/19 09:30 131 41 107/77 (87) 100 07/19/19 09:00 137 31 103/80 (88) 100 07/19/19 08:30 143 43 109/75 (86) 100 07/19/19 08:00 99.7 130 35 98/75 (83) 100 07/19/19 08:00 Mechanical Ventilator 07/19/19 08:00 30 07/19/19 08:00 142 07/19/19 07:30 131 35 114/76 (89) 92 07/19/19 07:10 148 41 100 Mechanical Ventilator 30 148 41 30 07/19/19 06:30 127 76 140/109 (119) 86 07/19/19 06:00 134 33 117/84 (95) 100 07/19/19 06:00 130/80 07/19/19 05:30 130 29 126/87 (100) 100 07/19/19 05:00 131 37 130/101 (111) 100 07/19/19 05:00 138/60 07/19/19 04:30 130 37 135/83 (100) 100 07/19/19 04:00 99.0 127 37 134/106 (115) 100 07/19/19 04:00 30 07/19/19 04:00 124 07/19/19 04:00 140/100 07/19/19 04:00 Mechanical Ventilator 07/19/19 04:00 99.0 127 37 134/106 (115) 100 07/19/19 03:30 126 35 118/81 (93) 100 07/19/19 03:30 126 35 118/81 (93) 100 07/19/19 03:00 124 32 109/79 (89) 100 07/19/19 03:00 130/81 07/19/19 03:00 124 32 109/79 (89) 100 07/19/19 03:00 111 39 99 Mechanical Ventilator 30 110 37 30 07/19/19 02:30 126 32 110/80 (90) 100 07/19/19 02:30 126 32 110/80 (90) 100 07/19/19 02:00 120/78 07/19/19 02:00 123 33 110/40 (63) 100 07/19/19 01:30 122 28 94/74 (81) 100 07/19/19 01:00 126 37 106/79 (88) 100 07/19/19 01:00 92/70 07/19/19 00:30 120 20 148/82 (104) 100 07/19/19 00:00 Mechanical Ventilator 07/19/19 00:00 128/80 07/19/19 00:00 98.8 121 108/83 (91) 100 07/19/19 00:00 30 07/18/19 23:30 119 29 110/80 (90) 100 07/18/19 23:00 110 34 100 Mechanical Ventilator 30 110 30 30 07/18/19 23:00 118 26 100/82 (88) 100 07/18/19 23:00 114/79 Intake and Output 07/18/19 07/19/19 19:00 07:00 Intake Total 802.84 ml 703.43 ml Balance 802.84 ml 703.43 ml Free Water 60 ml 50 ml IV Total 292.84 ml 233.43 ml Tube Feeding 420 ml 420 ml Other 30 ml # Bowel Movements 3 3 Laboratory Tests 07/19/19 14:27: Arterial Blood pH 7.343L, Arterial Blood Partial Pressure CO2 37.9, Arterial Blood Partial Pressure O2 444.7H, Arterial Blood HCO3 20.1L, Arterial Blood Oxygen Saturation 99.8, Arterial Blood Base Excess -5.1L, Kosta Test Positive Height (Feet): 6 Height (Inches): 1.00 Weight (Pounds): 184 Karishma Mulligan MD Jul 19, 2019 22:40
[2019-07-20] VITALS (53 sets, daily range): BP systolic 75–157; BP diastolic 50–140
--- NOTE | 2019-07-20 00:59 | Pulmonolgy Critical Care Note ---
Critical Care - Asmt/Plan Assessment/Plan: Pulmonary CCM Progress Note HPI: Patient is a 68 year old man, [facility] resident, admitted c/o shortness of breath, cough, noted to have Covid 19 Pneumonia, Respiratory Failure Remains on Ventilator, CXR infiltrates stable ETT adjusted Septic Shock, pressors off currently, on Mitodrine Preserved EF FIO2 40%-50%, P5, adequate O2 sats, remains on ACVC, did not tolerate weaning, s /p Tracheostomy, CXR stable, sp PEG Evaluated earlier on 07/19/2019 ID following Past Medical History: COPD, CKD, Hypertension, Anemia Allergies: No Known Allergies Improving Pulmonary Status on HD Physical Exam Vital Signs Noted Stable on ventilator Chronically ill appearing HEENT: moist mm Chest: Occasional rhonchi, BS equal bilaterally Heart: HS1, HS2, RRR Abdomen: SNTND G tube Extremities: No edema, well perfused AWAKE OVERNIGHT MONITOR: Non focal, mildly sedated Impression: COVID-19 virus infection Pneumonia Respiratory failure on ventilator, wean as tolerated CKD - on HD Hypotension on pressors previously Cardiomegaly Lymphopenia Elevated AST COPD Chronic Kidney Disease - HD H/o Hypertension Worsening anemia Plan: Tolerated Tracheostomy / G tube Antibiotics per ID HD Pressors PRN ACVC - wean as tolerated 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 Monitor cultures/viral studies PPX Hemodialysis per Renal Psychiatry following [facility] - [facility] requested for when available, [facility] - not available as yet Laboratory Tests Noted: CXR: Hypoventilatory exam, interstitial changes, cardiomegaly, improving infiltrates Subjective ROS Limited/Unobtainable: No Constitutional: Denies: fever Respiratory: Reports: dry cough, shortness of breath Gastrointestinal/Abdominal: Reports: diarrhea, other - colace was stopped Psychiatric: Reports: other - refuses labs Allergies: Coded Allergies: No Known Allergies (Unverified , 05/28/19) All Systems: reviewed and negative except above Labs noted Critical Care - Objective Last 24 Hour Vital Signs Date Time Temp Pulse Resp B/P (MAP) Pulse Ox O2 Delivery O2 Flow Rate FiO2 07/19/19 23:14 135 31 100 Mechanical Ventilator 60 138 31 60 07/19/19 22:00 95/95 07/19/19 22:00 133 30 95/65 (75) 100 07/19/19 21:30 134 30 102/81 (88) 100 6/8/20 21:00 139 30 99/60 (73) 99 07/19/19 21:00 99/60 07/19/19 20:45 97/63 07/19/19 20:45 144 36 97/63 (74) 100 07/19/19 20:30 150 56 93/66 (75) 93 07/19/19 20:00 Mechanical Ventilator 07/19/19 20:00 60 07/19/19 20:00 101.2 152 45 103/84 (90) 94 07/19/19 19:30 137 33 92/69 (77) 100 07/19/19 19:22 123 34 98 Mechanical Ventilator 60 126 47 60 07/19/19 19:00 145 31 125/74 (91) 100 07/19/19 18:30 143 35 114/89 (97) 100 07/19/19 18:00 128 30 135/90 (105) 100 07/19/19 18:00 135/90 07/19/19 17:30 128 29 103/72 (82) 100 07/19/19 17:00 72/34 07/19/19 17:00 126 32 94/67 (76) 100 07/19/19 16:45 96/67 07/19/19 16:40 88/64 07/19/19 16:35 86/58 07/19/19 16:30 126 32 93/62 (72) 100 07/19/19 16:30 88/61 07/19/19 16:25 85/62 07/19/19 16:20 71/55 07/19/19 16:15 57/39 07/19/19 16:10 71/43 07/19/19 16:05 68/42 07/19/19 16:02 136 07/19/19 16:00 100 07/19/19 16:00 72/34 07/19/19 16:00 98.0 137 29 72/34 (47) 98 07/19/19 16:00 Mechanical Ventilator 07/19/19 15:45 65/43 07/19/19 15:30 141 43 111/84 (93) 98 07/19/19 15:30 53/42 07/19/19 15:10 142 47 98 Mechanical Ventilator 100 142 47 30 07/19/19 15:00 141 43 128/85 (99) 98 07/19/19 14:43 45 91/61 Mechanical Ventilator 100 07/19/19 14:30 142 42 91/61 (71) 97 07/19/19 14:00 141 41 90/62 (71) 94 07/19/19 13:30 139 35 122/78 (93) 100 07/19/19 13:00 140 34 107/80 (89) 100 07/19/19 12:30 142 36 101/66 (78) 100 07/19/19 12:30 140 34 116/77 (90) 100 07/19/19 12:07 100/74 07/19/19 12:00 121 07/19/19 12:00 30 07/19/19 12:00 100.5 142 36 100/74 (83) 100 07/19/19 12:00 Mechanical Ventilator 07/19/19 12:00 139 36 115/93 (100) 100 07/19/19 11:30 142 37 101/73 (82) 100 07/19/19 11:30 139 37 110/72 (85) 100 07/19/19 11:15 132 32 100 Mechanical Ventilator 30 132 32 30 07/19/19 11:00 136 35 100/69 (79) 100 07/19/19 11:00 140 35 94/73 (80) 100 07/19/19 10:30 135 34 97/83 (88) 100 07/19/19 10:30 132 35 91/76 (81) 100 07/19/19 10:00 128 36 97/75 (82) 100 07/19/19 09:30 131 41 107/77 (87) 100 07/19/19 09:00 137 31 103/80 (88) 100 07/19/19 08:30 143 43 109/75 (86) 100 07/19/19 08:00 99.7 130 35 98/75 (83) 100 07/19/19 08:00 Mechanical Ventilator 07/19/19 08:00 30 07/19/19 08:00 142 07/19/19 07:30 131 35 114/76 (89) 92 07/19/19 07:10 148 41 100 Mechanical Ventilator 30 148 41 30 07/19/19 06:30 127 76 140/109 (119) 86 07/19/19 06:00 134 33 117/84 (95) 100 07/19/19 06:00 130/80 07/19/19 05:30 130 29 126/87 (100) 100 07/19/19 05:00 131 37 130/101 (111) 100 07/19/19 05:00 138/60 07/19/19 04:30 130 37 135/83 (100) 100 07/19/19 04:00 99.0 127 37 134/106 (115) 100 07/19/19 04:00 30 07/19/19 04:00 124 07/19/19 04:00 140/100 07/19/19 04:00 Mechanical Ventilator 07/19/19 04:00 99.0 127 37 134/106 (115) 100 07/19/19 03:30 126 35 118/81 (93) 100 07/19/19 03:30 126 35 118/81 (93) 100 07/19/19 03:00 124 32 109/79 (89) 100 07/19/19 03:00 130/81 07/19/19 03:00 124 32 109/79 (89) 100 07/19/19 03:00 111 39 99 Mechanical Ventilator 30 110 37 30 07/19/19 02:30 126 32 110/80 (90) 100 07/19/19 02:30 126 32 110/80 (90) 100 07/19/19 02:00 120/78 07/19/19 02:00 123 33 110/40 (63) 100 07/19/19 01:30 122 28 94/74 (81) 100 07/19/19 01:00 126 37 106/79 (88) 100 07/19/19 01:00 92/70 Accucheck: 442 Critical Care - Subjective ROS Limited/Unobtainable: No Condition: stable FI02: 60 Vent Support Breath Rate: 26 Vent Support Mode: AC Vent Tidal Volume: 500 Sputum Amount: Moderate PEEP: 5.0 PIP: 34 Tube Feeding Amount: 35 I&O: Intake and Output 07/19/19 07/20/19 19:00 07:00 Intake Total 835.47308 ml 329.94988 ml Balance 835.00449 ml 329.10158 ml Free Water 60 ml IV Total 320.48995 ml 164.36408 ml Tube Feeding 385 ml 105 ml Other 130 ml # Bowel Movements 1 ET-Tube: 7.5 ET Position: 24 Arturo Mckeon MD Jul 20, 2019 00:59
[2019-07-20] MEDS: NOREPINEPHRINE BITARTRATE IV SCH ×15 (01:15→19:02)
[2019-07-20] MEDS: D5W IV SCH ×15 (01:15→19:02)
[2019-07-20] MEDS: Renvela 2400 mg pkt NG SCH ×5 (01:20→23:34)
[2019-07-20] MEDS: NovoLOG Insulin Flexpen SUBQ SCH ×5 (01:20→23:49)
[2019-07-20] MEDS: Albuterol 90mcg Inhaler 8gm INH SCH ×6 (03:00→23:54)
[2019-07-20 04:53] LABS: HEMATOCRIT 36.5 % (42.0-52.0); HEMOGLOBIN 11.9 G/DL (14.2-18.0); MEAN CORPUSCULAR VOLUME 88 FL (80-99); PLATELET COUNT 544 K/UL (150-450); RED BLOOD COUNT 4.13 M/UL (4.70-6.10); RED CELL DISTRIBUTION WIDTH 16.1 % (11.6-14.8)
[2019-07-20 05:11] LABS: WHITE BLOOD COUNT 22.2 K/UL (4.8-10.8)
[2019-07-20 05:24] LABS: ALANINE AMINOTRANSFERASE 19 U/L (12-78); ALBUMIN 2.8 G/DL (3.4-5.0); ALBUMIN/GLOBULIN RATIO 0.4 (1.0-2.7); ALKALINE PHOSPHATASE 184 U/L (46-116); ANION GAP 21 mmol/L (5-15); ASPARTATE AMINO TRANSFERASE 25 U/L (15-37); BILIRUBIN,TOTAL 0.5 MG/DL (0.2-1.0); BLOOD UREA NITROGEN 85 mg/dL (7-18); CALCIUM 9.9 MG/DL (8.5-10.1); CARBON DIOXIDE 21 MMOL/L (21-32); CHLORIDE 94 MMOL/L (98-107); PHOSPHORUS 5.3 MG/DL (2.5-4.9); POTASSIUM 4.2 MMOL/L (3.5-5.1); SODIUM 136 MMOL/L (136-145)
[2019-07-20] MEDS: Midodrine 10mg tab ORAL SCH ×3 (06:00→21:07)
--- NOTE | 2019-07-20 06:41 | General Progress Note ---
Assessment/Plan Status: progressing, unchanged Assessment/Plan: 1. Diabetes. 2. Hypertension. 3. Coronary artery disease. 4. COPD. 5. Psychiatric disorder with schizophrenia. 6. History of hepatitis C. 7. HLP. 8. Chronic kidney disease, now with acute renal failure. 9. Anemia. 10. Hypothyroidism. 11. Spinal stenosis. 12. Constipation. 13. GERD. 14. COVID positive HD per nephrology fu labs icu care s/p PEG GTF monitor for residuals Subjective ROS Limited/Unobtainable: No Allergies: Coded Allergies: No Known Allergies (Unverified , 05/28/19) Objective Last 24 Hour Vital Signs Date Time Temp Pulse Resp B/P (MAP) Pulse Ox O2 Delivery O2 Flow Rate FiO2 07/20/19 06:00 31 108/63 Mechanical Ventilator 60 07/20/19 06:00 108/63 07/20/19 06:00 127 31 108/63 (78) 100 07/20/19 05:30 108/81 07/20/19 05:30 128 33 99/76 (84) 100 07/20/19 05:00 31 108/81 Mechanical Ventilator 60 07/20/19 05:00 108/81 07/20/19 05:00 125 31 108/81 (90) 100 07/20/19 04:30 126 32 99/67 (78) 100 07/20/19 04:00 60 07/20/19 04:00 Mechanical Ventilator 07/20/19 04:00 99.8 131 33 95/67 (76) 100 07/20/19 04:00 33 95/67 Mechanical Ventilator 60 07/20/19 04:00 95/67 07/20/19 04:00 135 07/20/19 03:55 135 37 100 Mechanical Ventilator 60 135 37 60 07/20/19 03:30 133 37 137/76 (96) 100 07/20/19 03:00 41 109/71 Mechanical Ventilator 60 07/20/19 03:00 109/71 07/20/19 03:00 133 41 109/71 (84) 100 07/20/19 02:30 129 36 110/73 (85) 100 07/20/19 02:00 38 98/70 Mechanical Ventilator 60 07/20/19 02:00 98/70 07/20/19 02:00 136 38 98/70 (79) 100 07/20/19 01:30 99.7 152 66 122/75 (91) 100 07/20/19 01:15 131/89 07/20/19 01:00 60 157/140 Mechanical Ventilator 60 07/20/19 01:00 157/140 07/20/19 01:00 143 60 157/140 (146) 100 07/20/19 00:30 135 17 130/88 (102) 100 07/20/19 00:00 125 07/20/19 00:00 Mechanical Ventilator 07/20/19 00:00 30 111/73 Mechanical Ventilator 60 07/20/19 00:00 111/73 07/20/19 00:00 103.5 134 30 111/73 (86) 100 07/20/19 00:00 60 07/19/19 23:30 133 32 118/78 (91) 100 07/19/19 23:19 100.9 07/19/19 23:14 135 31 100 Mechanical Ventilator 60 138 31 60 07/19/19 23:00 32 127/77 Mechanical Ventilator 60 07/19/19 23:00 127/77 07/19/19 23:00 138 32 127/77 (94) 100 07/19/19 22:30 134 30 107/88 (94) 100 07/19/19 22:00 30 95/65 Mechanical Ventilator 60 07/19/19 22:00 95/95 07/19/19 22:00 133 30 95/65 (75) 100 07/19/19 21:30 134 30 102/81 (88) 100 07/19/19 21:00 139 30 99/60 (73) 99 07/19/19 21:00 30 99/60 Mechanical Ventilator 60 07/19/19 21:00 99/60 07/19/19 20:45 97/63 07/19/19 20:45 144 36 97/63 (74) 100 07/19/19 20:30 150 56 93/66 (75) 93 07/19/19 20:00 Mechanical Ventilator 07/19/19 20:00 60 07/19/19 20:00 101.2 152 45 103/84 (90) 94 07/19/19 20:00 45 103/84 Mechanical Ventilator 60 07/19/19 20:00 103/84 07/19/19 20:00 137 07/19/19 19:30 137 33 92/69 (77) 100 07/19/19 19:22 123 34 98 Mechanical Ventilator 60 126 47 60 07/19/19 19:00 145 31 125/74 (91) 100 07/19/19 18:30 143 35 114/89 (97) 100 07/19/19 18:00 128 30 135/90 (105) 100 07/19/19 18:00 135/90 07/19/19 17:30 128 29 103/72 (82) 100 07/19/19 17:00 72/34 07/19/19 17:00 126 32 94/67 (76) 100 07/19/19 16:45 96/67 07/19/19 16:40 88/64 07/19/19 16:35 86/58 07/19/19 16:30 126 32 93/62 (72) 100 07/19/19 16:30 88/61 07/19/19 16:25 85/62 07/19/19 16:20 71/55 07/19/19 16:15 57/39 07/19/19 16:10 71/43 07/19/19 16:05 68/42 07/19/19 16:02 136 07/19/19 16:00 100 07/19/19 16:00 72/34 07/19/19 16:00 98.0 137 29 72/34 (47) 98 07/19/19 16:00 Mechanical Ventilator 07/19/19 15:45 65/43 07/19/19 15:30 141 43 111/84 (93) 98 07/19/19 15:30 53/42 07/19/19 15:10 142 47 98 Mechanical Ventilator 100 142 47 30 07/19/19 15:00 141 43 128/85 (99) 98 07/19/19 14:43 45 91/61 Mechanical Ventilator 100 07/19/19 14:30 142 42 91/61 (71) 97 07/19/19 14:00 141 41 90/62 (71) 94 07/19/19 13:30 139 35 122/78 (93) 100 07/19/19 13:00 140 34 107/80 (89) 100 07/19/19 12:30 142 36 101/66 (78) 100 07/19/19 12:30 140 34 116/77 (90) 100 07/19/19 12:07 100/74 07/19/19 12:00 121 07/19/19 12:00 30 07/19/19 12:00 100.5 142 36 100/74 (83) 100 07/19/19 12:00 Mechanical Ventilator 07/19/19 12:00 139 36 115/93 (100) 100 07/19/19 11:30 142 37 101/73 (82) 100 07/19/19 11:30 139 37 110/72 (85) 100 07/19/19 11:15 132 32 100 Mechanical Ventilator 30 132 32 30 07/19/19 11:00 136 35 100/69 (79) 100 07/19/19 11:00 140 35 94/73 (80) 100 07/19/19 10:30 135 34 97/83 (88) 100 07/19/19 10:30 132 35 91/76 (81) 100 07/19/19 10:00 128 36 97/75 (82) 100 07/19/19 09:30 131 41 107/77 (87) 100 07/19/19 09:00 137 31 103/80 (88) 100 07/19/19 08:30 143 43 109/75 (86) 100 07/19/19 08:00 99.7 130 35 98/75 (83) 100 07/19/19 08:00 Mechanical Ventilator 07/19/19 08:00 30 07/19/19 08:00 142 07/19/19 07:30 131 35 114/76 (89) 92 07/19/19 07:10 148 41 100 Mechanical Ventilator 30 148 41 30 Intake and Output 07/19/19 07/20/19 19:00 07:00 Intake Total 835.35164 ml 1271.03538 ml Balance 835.57601 ml 1271.82229 ml Free Water 180 ml IV Total 320.83467 ml 706.00386 ml Tube Feeding 385 ml 385 ml Other 130 ml # Bowel Movements 1 Laboratory Tests 07/19/19 14:27: Arterial Blood pH 7.343L, Arterial Blood Partial Pressure CO2 37.9, Arterial Blood Partial Pressure O2 444.7H, Arterial Blood HCO3 20.1L, Arterial Blood Oxygen Saturation 99.8, Arterial Blood Base Excess -5.1L, Kosta Test Positive 07/20/19 03:40: White Blood Count 22.2*H, Red Blood Count 4.13L, Hemoglobin 11.9L, Hematocrit 36.5L, Mean Corpuscular Volume 88, Mean Corpuscular Hemoglobin 28.9, Mean Corpuscular Hemoglobin Concent 32.6, Red Cell Distribution Width 16.1H, Platelet Count 544H, Mean Platelet Volume 6.2L, Neutrophils (%) (Auto) , Lymphocytes (%) (Auto) , Monocytes (%) (Auto) , Eosinophils (%) (Auto) , Basophils (%) (Auto) , Neutrophils % (Manual) [Pending], Lymphocytes % (Manual) [Pending], Platelet Estimate [Pending], Platelet Morphology [Pending], Sodium Level 136, Potassium Level 4.2, Chloride Level 94L, Carbon Dioxide Level 21, Anion Gap 21H, Blood Urea Nitrogen 85H, Creatinine 11.0H, Estimat Glomerular Filtration Rate 4.7, Glucose Level 316H, Calcium Level 9.9, Phosphorus Level 5.3H, Total Bilirubin 0.5, Aspartate Amino Transf (AST/SGOT) 25, Alanine Aminotransferase (ALT/SGPT) 19, Alkaline Phosphatase 184H, C-Reactive Protein, Quantitative 11.8H, Total Protein 10.0H, Albumin 2.8L, Globulin 7.2, Albumin/ Globulin Ratio 0.4L Height (Feet): 6 Height (Inches): 1.00 Weight (Pounds): 184 General Appearance: no apparent distress EENT: PERRL/EOMI Neck: supple Cardiovascular: normal rate Respiratory/Chest: decreased breath sounds Abdomen: normal bowel sounds, non tender, soft Extremities: non-tender Marito Ramires MD Jul 20, 2019 06:41
--- NOTE | 2019-07-20 07:20 | Hematology/Onc Progress Note ---
Assessment/Plan Assessment/Plan Assessment and Recs: # Anemia of chronic disease, likely related ot underlying kidney disease has COIVD19++++++ --> hgb trend 9-->8-->7.3-->7.9-->6.8->9.5-->10->8.3-->7.7-->7.1-->8.9->8.8->7.7 -->8.1 ->7.9-->7.7 -->8.2-->8.1 -->7.9-->8.5 -->9->9.2-->9.5-->10.7 -->9.8--> 10.2-->11.8 -->11.9 --> transfuse as needed, hgb goal >7 --> no evidence of hemolysis --> peripheral smear has been reviewed --> epogen started 3 x a week ==>> transfuse 06/08, 06/15 # Leukocytosis likely related to suspected COVID-19 virus infection --> completed plaquenil --> trend smear as needed --> wbc trend: 4-->11-->14.5-->21-->26-->21->24--.28-->23-->19-->16.2-->21--> 11.2 -->12.5-->12.3-->12.4-->18.5-->18.5-->17->13-->18.2-->22.2 --> pulm is aware --> on abx cefepime/vanc->zosyn/vanc-->dom/vanc-->dom-->levaquin/cefepime, --> pressors as needed --> 06/27 covid 19++ # Thrombocytopenia/Lymphopenia --> likely related to covid19 --> plt 129k-->186k-->251-->285-->384 -->430-->539-->515-->447-->451-->404--> 544 # Respiratory failure with covid19+ --> s/p vent/trach --> weaning # Possible Pneumonia --> abx completed --> 07/13 cxr: Improved right lung infiltrates. # Cardiomegaly # Transaminitis with Elevated AST # COPD # Chronic Kidney Disease --> per renal hd --> s/p right femoral cath 07/02 # Hypertension # Dvt ppx lovenox # peg Appreciate consultation and ernesto Rn Subjective Allergies: Coded Allergies: No Known Allergies (Unverified , 05/28/19) Subjective 06/01 nv, extremely agitated, not allowing labs draws, no night sweats, cbc ordered 06/02 confused, restraints, on abx and plaquenil, hgb 7.9, nrb 15 L 06/03 is with nonrebreather, but not compliant, remains confused 06/05 no bleeding, labs noted, no major bleeding, otherwise comfortable 06/06 labs reviewed, no bleeding, meds noted, no night sweats, on levo and nonrebreather 06/07 labs noted, no bleeding, meds reviewed, no bleeding, wbc higher 06/08 to get 2 units prbc, no night sweats, meds reviewed 06/09 is on cefepime and vanc, labs noted, ernesto Rn, no bleeding 06/10 no major changes, labs reviewed, wbc 28k, on abx, cefepime 06/12 remains in icu, labs noted, no night sweats or bleeding 06/13 sluggish pupils, remains agitated, per psych, no bleding, on vent, wbc sitll high 06/14 still confused, remains on vent, with ng, running nepro, on pressors 06/15 icu, febrile, non verbal, hgb 7.1, blood pending, completed plaq 06/16 remains in the icu, nonverbal, plan for hd tomorrow, ernesto rn 06/17 in icu, on pressor, nonverbal, on abx, no bleeding 06/19 no bleeding, nonverbal in icu, hgb is 7.7 06/20 on zosyn, tube feeds, vent, labs noted, in icu, nv 06/21 gettng hd as per renal, in icu, nv, no bleeding, tfs 06/22 icu, cxr with slight improvement, cooling blanket, weaning today 06/23 wewaning, in icu, on vent, abx, and pressors as needed, labs noted 06/24 failed weaning, off abx, completed plaquenil, hgb 8.1 06/26 icu, weaning for this am, afebrile, hgb 8 06/27 in icu, remains comotose, weaning started on peep, no night sweats 06/28 weaning today, off abx, restraints, no distress, h/h stable 06/29 covid 19+, failed weaning, no blood transfusion needed 06/30 icu, on vent, labs reviewed, no distress 07/01 in icu, may need trach, remains on hd per renal, labs noted 07/02 s/p right fem cath, failed wean, no new orders, h/h stable 07/03 is somewhat more responsive, on abx, no bleeding, weaning and HD today 07/04 hd as per renal, weaning off vent, no bleeding today 07/05 obtunded, no bleding overnight, with hd for tomorrow noted, vanc 07/08 no events, remains with trach/vent, ernesto Rn, no bleeding, cbc is noted 07/09 no overnight events, peg for friday pending consent 07/10 off pressors, vent, restraints, labs reviewed 07/11 no acute events is on pressors, intubated, agitated still 07/12 is resting comfortably, no bleeding, emds reviewed and noted 07/13 icu, no events, trach, cxr reviewed, 07/14 is onv ent, tachypneic and tachycardic, labs noted 07/15 remains confused, intubated, ernesto Rn, no bleeding 07/17 icu, cxr improving infiltrates, levo gtt, airborne/contact isolation 07/18 is on broad spectrum abx, is on levaquin and cefepime, wbc 16 agitated 07/19 icu, levo gtt, cxr unchanged, tachy, hd friday Objective Objective Current Medications Medications (Trade) Dose Ordered Sig/Anthony Route PRN Reason Start Time Stop Time Status Last Admin Dose Admin Acetaminophen (Tylenol) 650 mg Q4H PRN NG For Pain 07/11/19 08:00 08/10/19 07:59 07/19/19 22:49 Albuterol Sulfate (Proventil MDI) 2 puff Q4HRT INH 06/06/19 23:00 08/30/19 18:59 07/20/19 03:00 Cefepime HCl 500 mg/Dextrose 55 ml @ 110 mls/hr Q24H IV 07/20/19 12:00 07/27/19 11:59 Chlorhexidine Gluconate (Michelle-Hex 2%) 1 applic DAILY@2000 TOPIC 06/07/19 20:00 09/05/19 19:59 07/19/19 20:45 Dextrose (Dextrose 50%) 25 ml Q30M PRN IV Hypoglycemia 06/20/19 19:30 09/18/19 19:29 Dextrose (Dextrose 50%) 50 ml Q30M PRN IV Hypoglycemia 06/20/19 19:30 09/18/19 19:29 Dopamine HCl/ Dextrose 250 ml @ 0 mls/hr Q24H PRN IV For hypotension 06/13/19 08:15 09/11/19 08:14 07/17/19 08:46 Enoxaparin Sodium (Lovenox) 30 mg DAILY SUBQ 06/07/19 09:00 08/27/19 08:59 07/19/19 08:48 Epoetin Aftab (Epoetin Aftab(ESRD on dialysis)) 10,000 unit FRI-FRI-FRI SUBQ 06/07/19 21:00 08/31/19 20:59 07/19/19 21:00 Fentanyl Citrate 250 ml @ 0 mls/hr Q24H IV 07/19/19 14:06 10/17/19 14:05 07/19/19 14:43 Haloperidol Lactate 5 mg/ Dextrose 56 ml @ 224 mls/hr Q6H PRN IVPB Agitation 07/11/19 15:00 08/25/19 14:59 07/15/19 02:36 Hydralazine HCl (Apresoline) 10 mg Q4H PRN IV Blood pressure over 160 systol 06/07/19 10:15 09/05/19 10:14 Insulin Aspart (NovoLOG) EVERY 6 HOURS SUBQ 06/21/19 00:00 09/19/19 00:00 07/20/19 06:19 Levofloxacin (Levaquin) 500 mg EVERY OTHER DAY GT 07/21/19 09:00 07/28/19 08:59 Midodrine (Pro-Amatine) 10 mg Q8HR ORAL 07/17/19 14:00 10/15/19 10:29 07/19/19 22:49 Norepinephrine Bitartrate 8 mg/ Dextrose 283 ml @ 0 mls/hr Q24H IV 06/23/19 23:00 07/23/19 22:59 07/20/19 05:30 Sevelamer Carbonate (Renvela) 2,400 mg Q6HR NG 07/14/19 12:00 10/12/19 13:59 07/20/19 05:29 Last 24 Hour Vital Signs Date Time Temp Pulse Resp B/P (MAP) Pulse Ox O2 Delivery O2 Flow Rate FiO2 07/20/19 07:00 131 35 114/80 (91) 100 07/20/19 06:00 31 108/63 Mechanical Ventilator 60 07/20/19 06:00 108/63 07/20/19 06:00 127 31 108/63 (78) 100 07/20/19 05:30 108/81 07/20/19 05:30 128 33 99/76 (84) 100 07/20/19 05:00 31 108/81 Mechanical Ventilator 60 07/20/19 05:00 108/81 07/20/19 05:00 125 31 108/81 (90) 100 07/20/19 04:30 126 32 99/67 (78) 100 07/20/19 04:00 60 07/20/19 04:00 Mechanical Ventilator 07/20/19 04:00 99.8 131 33 95/67 (76) 100 07/20/19 04:00 33 95/67 Mechanical Ventilator 60 07/20/19 04:00 95/67 07/20/19 04:00 135 07/20/19 03:55 135 37 100 Mechanical Ventilator 60 135 37 60 07/20/19 03:30 133 37 137/76 (96) 100 07/20/19 03:00 41 109/71 Mechanical Ventilator 60 07/20/19 03:00 109/71 07/20/19 03:00 133 41 109/71 (84) 100 07/20/19 02:30 129 36 110/73 (85) 100 07/20/19 02:00 38 98/70 Mechanical Ventilator 60 07/20/19 02:00 98/70 07/20/19 02:00 136 38 98/70 (79) 100 07/20/19 01:30 99.7 152 66 122/75 (91) 100 07/20/19 01:15 131/89 07/20/19 01:00 60 157/140 Mechanical Ventilator 60 07/20/19 01:00 157/140 07/20/19 01:00 143 60 157/140 (146) 100 07/20/19 00:30 135 17 130/88 (102) 100 07/20/19 00:00 125 07/20/19 00:00 Mechanical Ventilator 07/20/19 00:00 30 111/73 Mechanical Ventilator 60 07/20/19 00:00 111/73 07/20/19 00:00 103.5 134 30 111/73 (86) 100 07/20/19 00:00 60 07/19/19 23:30 133 32 118/78 (91) 100 07/19/19 23:19 100.9 07/19/19 23:14 135 31 100 Mechanical Ventilator 60 138 31 60 07/19/19 23:00 32 127/77 Mechanical Ventilator 60 07/19/19 23:00 127/77 07/19/19 23:00 138 32 127/77 (94) 100 07/19/19 22:30 134 30 107/88 (94) 100 07/19/19 22:00 30 95/65 Mechanical Ventilator 60 07/19/19 22:00 95/95 07/19/19 22:00 133 30 95/65 (75) 100 07/19/19 21:30 134 30 102/81 (88) 100 07/19/19 21:00 139 30 99/60 (73) 99 07/19/19 21:00 30 99/60 Mechanical Ventilator 60 07/19/19 21:00 99/60 07/19/19 20:45 97/63 07/19/19 20:45 144 36 97/63 (74) 100 07/19/19 20:30 150 56 93/66 (75) 93 07/19/19 20:00 Mechanical Ventilator 07/19/19 20:00 60 07/19/19 20:00 101.2 152 45 103/84 (90) 94 07/19/19 20:00 45 103/84 Mechanical Ventilator 60 07/19/19 20:00 103/84 07/19/19 20:00 137 07/19/19 19:30 137 33 92/69 (77) 100 07/19/19 19:22 123 34 98 Mechanical Ventilator 60 126 47 60 07/19/19 19:00 145 31 125/74 (91) 100 07/19/19 18:30 143 35 114/89 (97) 100 07/19/19 18:00 128 30 135/90 (105) 100 07/19/19 18:00 135/90 07/19/19 17:30 128 29 103/72 (82) 100 07/19/19 17:00 72/34 07/19/19 17:00 126 32 94/67 (76) 100 07/19/19 16:45 96/67 07/19/19 16:40 88/64 07/19/19 16:35 86/58 07/19/19 16:30 126 32 93/62 (72) 100 07/19/19 16:30 88/61 07/19/19 16:25 85/62 07/19/19 16:20 71/55 07/19/19 16:15 57/39 07/19/19 16:10 71/43 07/19/19 16:05 68/42 07/19/19 16:02 136 07/19/19 16:00 100 07/19/19 16:00 72/34 07/19/19 16:00 98.0 137 29 72/34 (47) 98 07/19/19 16:00 Mechanical Ventilator 07/19/19 15:45 65/43 07/19/19 15:30 141 43 111/84 (93) 98 07/19/19 15:30 53/42 07/19/19 15:10 142 47 98 Mechanical Ventilator 100 142 47 30 07/19/19 15:00 141 43 128/85 (99) 98 07/19/19 14:43 45 91/61 Mechanical Ventilator 100 07/19/19 14:30 142 42 91/61 (71) 97 07/19/19 14:00 141 41 90/62 (71) 94 07/19/19 13:30 139 35 122/78 (93) 100 07/19/19 13:00 140 34 107/80 (89) 100 07/19/19 12:30 142 36 101/66 (78) 100 07/19/19 12:30 140 34 116/77 (90) 100 07/19/19 12:07 100/74 07/19/19 12:00 121 07/19/19 12:00 30 07/19/19 12:00 100.5 142 36 100/74 (83) 100 07/19/19 12:00 Mechanical Ventilator 07/19/19 12:00 139 36 115/93 (100) 100 07/19/19 11:30 142 37 101/73 (82) 100 07/19/19 11:30 139 37 110/72 (85) 100 07/19/19 11:15 132 32 100 Mechanical Ventilator 30 132 32 30 07/19/19 11:00 136 35 100/69 (79) 100 07/19/19 11:00 140 35 94/73 (80) 100 07/19/19 10:30 135 34 97/83 (88) 100 07/19/19 10:30 132 35 91/76 (81) 100 07/19/19 10:00 128 36 97/75 (82) 100 07/19/19 09:30 131 41 107/77 (87) 100 07/19/19 09:00 137 31 103/80 (88) 100 07/19/19 08:30 143 43 109/75 (86) 100 07/19/19 08:00 99.7 130 35 98/75 (83) 100 07/19/19 08:00 Mechanical Ventilator 07/19/19 08:00 30 07/19/19 08:00 142 07/19/19 07:30 131 35 114/76 (89) 92 07/19/19 07:10 148 41 100 Mechanical Ventilator 30 148 41 30 07/19/19 06:30 127 76 140/109 (119) 86 07/19/19 06:00 134 33 117/84 (95) 100 07/19/19 06:00 130/80 07/19/19 05:30 130 29 126/87 (100) 100 07/19/19 05:00 131 37 130/101 (111) 100 07/19/19 05:00 138/60 07/19/19 04:30 130 37 135/83 (100) 100 07/19/19 04:00 99.0 127 37 134/106 (115) 100 07/19/19 04:00 30 07/19/19 04:00 124 07/19/19 04:00 140/100 07/19/19 04:00 Mechanical Ventilator 07/19/19 04:00 99.0 127 37 134/106 (115) 100 07/19/19 03:30 126 35 118/81 (93) 100 07/19/19 03:30 126 35 118/81 (93) 100 07/19/19 03:00 124 32 109/79 (89) 100 07/19/19 03:00 130/81 07/19/19 03:00 124 32 109/79 (89) 100 07/19/19 03:00 111 39 99 Mechanical Ventilator 30 110 37 30 07/19/19 02:30 126 32 110/80 (90) 100 07/19/19 02:30 126 32 110/80 (90) 100 07/19/19 02:00 120/78 07/19/19 02:00 123 33 110/40 (63) 100 07/19/19 01:30 122 28 94/74 (81) 100 07/19/19 01:00 126 37 106/79 (88) 100 07/19/19 01:00 92/70 07/19/19 00:30 120 20 148/82 (104) 100 07/19/19 00:00 Mechanical Ventilator 07/19/19 00:00 128/80 07/19/19 00:00 98.8 121 108/83 (91) 100 07/19/19 00:00 30 07/18/19 23:30 119 29 110/80 (90) 100 07/18/19 23:00 110 34 100 Mechanical Ventilator 30 110 30 30 07/18/19 23:00 118 26 100/82 (88) 100 07/18/19 23:00 114/79 07/18/19 22:30 106 33 108/74 (85) 100 07/18/19 22:00 97 29 87/68 (74) 100 82 07/18/19 22:00 105/65 07/18/19 21:30 129 33 109/91 (97) 100 84 07/18/19 21:28 103/69 07/18/19 21:00 103/69 07/18/19 21:00 127 31 120/83 (95) 100 112 07/18/19 20:30 134 40 124/88 (100) 100 07/18/19 20:00 125/65 07/18/19 20:00 Mechanical Ventilator 07/18/19 20:00 84 07/18/19 20:00 30 07/18/19 20:00 99.0 126 52 125/65 (85) 100 07/18/19 19:30 117 42 118/72 (87) 100 07/18/19 19:15 119 44 100 Mechanical Ventilator 30 120 45 30 07/18/19 19:00 115 42 117/74 (88) 100 07/18/19 19:00 117/74 07/18/19 18:30 112 38 95/63 (74) 100 07/18/19 18:15 112 39 97/66 (76) 100 07/18/19 18:00 97/66 07/18/19 18:00 112 38 100/63 (75) 100 07/18/19 17:30 122 33 126/64 (84) 100 07/18/19 17:00 121 25 115/81 (92) 100 07/18/19 17:00 119/80 07/18/19 16:30 116 42 121/86 (98) 100 07/18/19 16:00 117 07/18/19 16:00 98.9 112 41 130/80 (97) 100 07/18/19 16:00 30 07/18/19 16:00 121/83 07/18/19 16:00 Mechanical Ventilator 07/18/19 15:36 99 28 100 Mechanical Ventilator 30 100 35 30 07/18/19 15:15 103 25 95/67 (76) 100 07/18/19 15:00 102/78 07/18/19 15:00 106 22 102/78 (86) 100 07/18/19 14:00 100 26 104/71 (82) 100 07/18/19 14:00 104/71 07/18/19 13:30 101 26 103/70 (81) 100 07/18/19 13:09 102 26 129/73 (91) 100 07/18/19 13:00 104 17 87/70 (76) 100 07/18/19 13:00 104/76 07/18/19 12:00 102 07/18/19 12:00 98.5 110 26 97/68 (78) 100 07/18/19 12:00 97/68 07/18/19 12:00 30 07/18/19 12:00 Mechanical Ventilator 07/18/19 11:45 112 31 111/86 (94) 100 07/18/19 11:30 112 26 92/71 (78) 100 07/18/19 11:15 119 23 93/71 (78) 100 07/18/19 11:12 113 27 100 Mechanical Ventilator 30 115 27 30 07/18/19 11:00 100/71 07/18/19 11:00 122 30 100/71 (81) 100 07/18/19 10:54 102/56 07/18/19 10:15 122 28 96/66 (76) 100 07/18/19 10:00 87/63 07/18/19 10:00 126 29 87/63 (71) 100 07/18/19 09:52 128 35 96/57 (70) 100 07/18/19 09:45 131 29 86/63 (71) 100 07/18/19 09:30 140 48 113/94 (100) 100 07/18/19 09:15 138 46 115/80 (92) 100 07/18/19 09:00 113/86 07/18/19 09:00 98.0 129 51 113/86 (95) 100 07/18/19 08:15 134 33 75/56 (62) 07/18/19 08:00 Mechanical Ventilator 07/18/19 08:00 128 32 64/47 (53) 07/18/19 08:00 64/47 07/18/19 08:00 30 07/18/19 08:00 132 07/18/19 07:51 120 28 100 Mechanical Ventilator 30 121 29 30 Intake and Output 07/19/19 07/20/19 19:00 07:00 Intake Total 835.87111 ml 1306.18087 ml Balance 835.83293 ml 1306.50292 ml Free Water 180 ml IV Total 320.63340 ml 706.47129 ml Tube Feeding 385 ml 420 ml Other 130 ml # Bowel Movements 1 Labs Test 07/18/19 04:15 07/19/19 14:27 07/20/19 03:40 White Blood Count 18.2 K/UL (4.8-10.8) 22.2 K/UL (4.8-10.8) Red Blood Count 4.08 M/UL (4.70-6.10) 4.13 M/UL (4.70-6.10) Hemoglobin 11.8 G/DL (14.2-18.0) 11.9 G/DL (14.2-18.0) Hematocrit 36.4 % (42.0-52.0) 36.5 % (42.0-52.0) Mean Corpuscular Volume 89 FL (80-99) 88 FL (80-99) Mean Corpuscular Hemoglobin 28.9 PG (27.0-31.0) 28.9 PG (27.0-31.0) Mean Corpuscular Hemoglobin Concent 32.3 G/DL (32.0-36.0) 32.6 G/DL (32.0-36.0) Red Cell Distribution Width 16.0 % (11.6-14.8) 16.1 % (11.6-14.8) Platelet Count 404 K/UL (150-450) 544 K/UL (150-450) Mean Platelet Volume 7.0 FL (6.5-10.1) 6.2 FL (6.5-10.1) Neutrophils (%) (Auto) % (45.0-75.0) % (45.0-75.0) Lymphocytes (%) (Auto) % (20.0-45.0) % (20.0-45.0) Monocytes (%) (Auto) % (1.0-10.0) % (1.0-10.0) Eosinophils (%) (Auto) % (0.0-3.0) % (0.0-3.0) Basophils (%) (Auto) % (0.0-2.0) % (0.0-2.0) Differential Total Cells Counted 100 Neutrophils % (Manual) 81 % (45-75) Lymphocytes % (Manual) 8 % (20-45) Monocytes % (Manual) 10 % (1-10) Eosinophils % (Manual) 1 % (0-3) Basophils % (Manual) 0 % (0-2) Band Neutrophils 0 % (0-8) Platelet Estimate Adequate Platelet Morphology Normal Anisocytosis 1+ Sodium Level 134 MMOL/L (136-145) 136 MMOL/L (136-145) Potassium Level 4.7 MMOL/L (3.5-5.1) 4.2 MMOL/L (3.5-5.1) Chloride Level 91 MMOL/L (98-107) 94 MMOL/L (98-107) Carbon Dioxide Level 25 MMOL/L (21-32) 21 MMOL/L (21-32) Anion Gap 18 mmol/L (5-15) 21 mmol/L (5-15) Blood Urea Nitrogen 55 mg/dL (7-18) 85 mg/dL (7-18) Creatinine 7.6 MG/DL (0.55-1.30) 11.0 MG/DL (0.55-1.30) Estimat Glomerular Filtration Rate 7.2 mL/min (>60) 4.7 mL/min (>60) Glucose Level 231 MG/DL (74-106) 316 MG/DL (74-106) Calcium Level 9.7 MG/DL (8.5-10.1) 9.9 MG/DL (8.5-10.1) Phosphorus Level 5.2 MG/DL (2.5-4.9) 5.3 MG/DL (2.5-4.9) Total Bilirubin 0.5 MG/DL (0.2-1.0) 0.5 MG/DL (0.2-1.0) Aspartate Amino Transf (AST/SGOT) 68 U/L (15-37) 25 U/L (15-37) Alanine Aminotransferase (ALT/SGPT) 22 U/L (12-78) 19 U/L (12-78) Alkaline Phosphatase 179 U/L (46-116) 184 U/L (46-116) Total Protein 10.0 G/DL (6.4-8.2) 10.0 G/DL (6.4-8.2) Albumin 3.1 G/DL (3.4-5.0) 2.8 G/DL (3.4-5.0) Globulin 6.9 g/dL 7.2 g/dL Albumin/Globulin Ratio 0.4 (1.0-2.7) 0.4 (1.0-2.7) Arterial Blood pH 7.343 (7.350-7.450) Arterial Blood Partial Pressure CO2 37.9 mmHg (35.0-45.0) Arterial Blood Partial Pressure O2 444.7 mmHg (75.0-100.0) Arterial Blood HCO3 20.1 mmol/L (22.0-26.0) Arterial Blood Oxygen Saturation 99.8 % (95-100) Arterial Blood Base Excess -5.1 (-2-2) Kosta Test Positive C-Reactive Protein, Quantitative 11.8 mg/dL (0.00-0.90) Height (Feet): 6 Height (Inches): 1.00 Weight (Pounds): 187 Objective General: nv, confused, sedated Heent: bilateral eye normal inspection, bilateral eye PERRL ++Ng Respiratory: normal breath sounds, no respiratory distress, intubated/vent +++ trach+++ Cardiovascular: regular rate, rhythm, no edema Gastrointestinal: normal inspection, soft, non-distended, peg+ Rectal: deferred Musculoskeletal: normal range of motion, non-tender, R fem cath++ Neurologic: alert, motor strength/tone normal, sensory intact, responsive, speech normal Skin: Decubitus/Ulcer - See RN skin exam. : jamaal+ Greg Cabral MD Jul 20, 2019 07:20
[2019-07-20] MEDS: Enoxaparin 30mg Inj SUBQ SCH (08:15)
[2019-07-20] MEDS: Acetaminophen 650mg/20.3ml NG PRN ×2 (08:15→18:21)
--- NOTE | 2019-07-20 10:07 | Cardiac Electrophysiology PN ---
Assessment/Plan Assessment/Plan 1. Elevated troponin. Low level and flat due to renal failure. On Aspirin. EF 60 %. 2. Septic shock. On Levo 30 mcg and Midodrine 10 tid 3. ESRD, on HD per Dr. Cole. 4. Resp failure due to COVID-19 positive pneumonia. On the Vent with 30% Fio2. S/P Tracheostomy 07/08/19 5. MRSA carrier. 6. COPD. 7. Anemia. 8. Dysphagia, S/P PEG 07/13/19 DW RN Subjective Subjective In ICU, on Vent via trach with 30% Fio2. On Levo 30 mcg, Fentanyl 100 and Midodrine S/P Left IG HD catheter placement and HD. Anxious with sinus tach 120s Objective Last 24 Hour Vital Signs Date Time Temp Pulse Resp B/P (MAP) Pulse Ox O2 Delivery O2 Flow Rate FiO2 07/20/19 08:45 102.0 07/20/19 08:00 100.5 132 35 111/74 (86) 100 07/20/19 08:00 33 111/74 Mechanical Ventilator 60 07/20/19 08:00 111/74 07/20/19 08:00 60 07/20/19 08:00 Mechanical Ventilator 07/20/19 07:30 135 35 97/67 (77) 100 07/20/19 07:27 134 34 100 Mechanical Ventilator 60 134 35 60 07/20/19 07:00 131 35 114/80 (91) 100 07/20/19 07:00 35 114/80 Mechanical Ventilator 60 07/20/19 07:00 114/80 07/20/19 06:00 31 108/63 Mechanical Ventilator 60 07/20/19 06:00 108/63 07/20/19 06:00 127 31 108/63 (78) 100 07/20/19 05:30 108/81 07/20/19 05:30 128 33 99/76 (84) 100 07/20/19 05:00 31 108/81 Mechanical Ventilator 60 07/20/19 05:00 108/81 07/20/19 05:00 125 31 108/81 (90) 100 07/20/19 04:30 126 32 99/67 (78) 100 07/20/19 04:00 60 07/20/19 04:00 Mechanical Ventilator 07/20/19 04:00 99.8 131 33 95/67 (76) 100 07/20/19 04:00 33 95/67 Mechanical Ventilator 60 07/20/19 04:00 95/67 07/20/19 04:00 135 07/20/19 03:55 135 37 100 Mechanical Ventilator 60 135 37 60 07/20/19 03:30 133 37 137/76 (96) 100 07/20/19 03:00 41 109/71 Mechanical Ventilator 60 07/20/19 03:00 109/71 07/20/19 03:00 133 41 109/71 (84) 100 07/20/19 02:30 129 36 110/73 (85) 100 07/20/19 02:00 38 98/70 Mechanical Ventilator 60 07/20/19 02:00 98/70 07/20/19 02:00 136 38 98/70 (79) 100 07/20/19 01:30 99.7 152 66 122/75 (91) 100 07/20/19 01:15 131/89 07/20/19 01:00 60 157/140 Mechanical Ventilator 60 07/20/19 01:00 157/140 07/20/19 01:00 143 60 157/140 (146) 100 07/20/19 00:30 135 17 130/88 (102) 100 07/20/19 00:00 125 07/20/19 00:00 Mechanical Ventilator 07/20/19 00:00 30 111/73 Mechanical Ventilator 60 07/20/19 00:00 111/73 07/20/19 00:00 103.5 134 30 111/73 (86) 100 07/20/19 00:00 60 07/19/19 23:30 133 32 118/78 (91) 100 07/19/19 23:14 135 31 100 Mechanical Ventilator 60 138 31 60 07/19/19 23:00 32 127/77 Mechanical Ventilator 60 07/19/19 23:00 127/77 07/19/19 23:00 138 32 127/77 (94) 100 07/19/19 22:30 134 30 107/88 (94) 100 07/19/19 22:00 30 95/65 Mechanical Ventilator 60 07/19/19 22:00 95/95 07/19/19 22:00 133 30 95/65 (75) 100 07/19/19 21:30 134 30 102/81 (88) 100 07/19/19 21:00 139 30 99/60 (73) 99 07/19/19 21:00 30 99/60 Mechanical Ventilator 60 07/19/19 21:00 99/60 07/19/19 20:45 97/63 07/19/19 20:45 144 36 97/63 (74) 100 07/19/19 20:30 150 56 93/66 (75) 93 07/19/19 20:00 Mechanical Ventilator 07/19/19 20:00 60 07/19/19 20:00 101.2 152 45 103/84 (90) 94 07/19/19 20:00 45 103/84 Mechanical Ventilator 60 07/19/19 20:00 103/84 07/19/19 20:00 137 07/19/19 19:30 137 33 92/69 (77) 100 07/19/19 19:22 123 34 98 Mechanical Ventilator 60 126 47 60 07/19/19 19:00 145 31 125/74 (91) 100 07/19/19 18:30 143 35 114/89 (97) 100 07/19/19 18:00 128 30 135/90 (105) 100 07/19/19 18:00 135/90 07/19/19 17:30 128 29 103/72 (82) 100 07/19/19 17:00 72/34 07/19/19 17:00 126 32 94/67 (76) 100 07/19/19 16:45 96/67 07/19/19 16:40 88/64 07/19/19 16:35 86/58 07/19/19 16:30 126 32 93/62 (72) 100 07/19/19 16:30 88/61 07/19/19 16:25 85/62 07/19/19 16:20 71/55 07/19/19 16:15 57/39 07/19/19 16:10 71/43 07/19/19 16:05 68/42 07/19/19 16:02 136 07/19/19 16:00 100 07/19/19 16:00 72/34 07/19/19 16:00 98.0 137 29 72/34 (47) 98 07/19/19 16:00 Mechanical Ventilator 07/19/19 15:45 65/43 07/19/19 15:30 141 43 111/84 (93) 98 07/19/19 15:30 53/42 07/19/19 15:10 142 47 98 Mechanical Ventilator 100 142 47 30 07/19/19 15:00 141 43 128/85 (99) 98 07/19/19 14:43 45 91/61 Mechanical Ventilator 100 07/19/19 14:30 142 42 91/61 (71) 97 07/19/19 14:00 141 41 90/62 (71) 94 07/19/19 13:30 139 35 122/78 (93) 100 07/19/19 13:00 140 34 107/80 (89) 100 07/19/19 12:30 142 36 101/66 (78) 100 07/19/19 12:30 140 34 116/77 (90) 100 07/19/19 12:07 100/74 07/19/19 12:00 121 07/19/19 12:00 30 07/19/19 12:00 100.5 142 36 100/74 (83) 100 07/19/19 12:00 Mechanical Ventilator 07/19/19 12:00 139 36 115/93 (100) 100 07/19/19 11:30 142 37 101/73 (82) 100 07/19/19 11:30 139 37 110/72 (85) 100 07/19/19 11:15 132 32 100 Mechanical Ventilator 30 132 32 30 07/19/19 11:00 136 35 100/69 (79) 100 07/19/19 11:00 140 35 94/73 (80) 100 07/19/19 10:30 135 34 97/83 (88) 100 07/19/19 10:30 132 35 91/76 (81) 100 Intake and Output 07/19/19 07/20/19 19:00 07:00 Intake Total 835.90686 ml 1379.98338 ml Balance 835.49830 ml 1379.92460 ml Free Water 180 ml IV Total 320.53466 ml 779.05383 ml Tube Feeding 385 ml 420 ml Other 130 ml # Bowel Movements 1 Laboratory Tests Test 07/19/19 14:27 07/20/19 03:40 Arterial Blood pH 7.343 (7.350-7.450) Arterial Blood Partial Pressure CO2 37.9 mmHg (35.0-45.0) Arterial Blood Partial Pressure O2 444.7 mmHg (75.0-100.0) H Arterial Blood HCO3 20.1 mmol/L (22.0-26.0) L Arterial Blood Oxygen Saturation 99.8 % (95-100) Arterial Blood Base Excess -5.1 (-2-2) L Kosta Test Positive White Blood Count 22.2 K/UL (4.8-10.8) *H Red Blood Count 4.13 M/UL (4.70-6.10) L Hemoglobin 11.9 G/DL (14.2-18.0) L Hematocrit 36.5 % (42.0-52.0) L Mean Corpuscular Volume 88 FL (80-99) Mean Corpuscular Hemoglobin 28.9 PG (27.0-31.0) Mean Corpuscular Hemoglobin Concent 32.6 G/DL (32.0-36.0) Red Cell Distribution Width 16.1 % (11.6-14.8) H Platelet Count 544 K/UL (150-450) H Mean Platelet Volume 6.2 FL (6.5-10.1) L Neutrophils (%) (Auto) % (45.0-75.0) Lymphocytes (%) (Auto) % (20.0-45.0) Monocytes (%) (Auto) % (1.0-10.0) Eosinophils (%) (Auto) % (0.0-3.0) Basophils (%) (Auto) % (0.0-2.0) Differential Total Cells Counted 100 Neutrophils % (Manual) 89 % (45-75) H Lymphocytes % (Manual) 8 % (20-45) L Monocytes % (Manual) 3 % (1-10) Eosinophils % (Manual) 0 % (0-3) Basophils % (Manual) 0 % (0-2) Band Neutrophils 0 % (0-8) Platelet Estimate Increased H Platelet Morphology Normal Polychromasia 1+ Hypochromasia 1+ Anisocytosis 1+ Sodium Level 136 MMOL/L (136-145) Potassium Level 4.2 MMOL/L (3.5-5.1) Chloride Level 94 MMOL/L (98-107) L Carbon Dioxide Level 21 MMOL/L (21-32) Anion Gap 21 mmol/L (5-15) H Blood Urea Nitrogen 85 mg/dL (7-18) H Creatinine 11.0 MG/DL (0.55-1.30) H Estimat Glomerular Filtration Rate 4.7 mL/min (>60) Glucose Level 316 MG/DL (74-106) H Calcium Level 9.9 MG/DL (8.5-10.1) Phosphorus Level 5.3 MG/DL (2.5-4.9) H Total Bilirubin 0.5 MG/DL (0.2-1.0) Aspartate Amino Transf (AST/SGOT) 25 U/L (15-37) Alanine Aminotransferase (ALT/SGPT) 19 U/L (12-78) Alkaline Phosphatase 184 U/L (46-116) H C-Reactive Protein, Quantitative 11.8 mg/dL (0.00-0.90) H Total Protein 10.0 G/DL (6.4-8.2) H Albumin 2.8 G/DL (3.4-5.0) L Globulin 7.2 g/dL Albumin/Globulin Ratio 0.4 (1.0-2.7) L Objective HEAD AND NECK: No JVD. Tracheostomy in place. Left IJ HD catheter now in place LUNGS: Decreased breath sounds. CARDIOVASCULAR: Regular S1 and S2. Tachycardic. ABDOMEN: Soft. PEG in place EXTREMITIES: No pitting edema. Left FV Gio Engle MD Jul 20, 2019 10:07
--- NOTE | 2019-07-20 10:38 | Infectious Diseases Prog Note ---
Assessment/Plan Assessment/Plan IMPRESSION: 1. COVID19 pneumonia Positive: 05/27, 05/31 , 06/05, 06/09 ,06/17, 06/19, 06/23, 06/27, 07/03, 07/15 2. MRSA carrier. 3. Chronic kidney disease , end-stage renal disease. 4. COPD. 5. Hypertension. 6. Anemia. 7. Hypothyroidism. 8. Hyperlipidemia. 9. Major depression. 10. Leukocytosis 11. Hypotension 12. Hepatitis C 13. Hyperuricemia 14. Diarrhea 15. septic shock 16. Leukocytosis worsening 17. Bacteremia with Staph epidermidis Subsequent cultures negative RECOMMENDATIONS: No change in CXR Will f/u Sputum culture Continue Levaquin & Cefepime Start on IV Vancomycin Repeat blood culture Finished hydroxychloroquine. Subjective ROS Limited/Unobtainable: Yes Constitutional: Reports: fever, other - Er=[id number] Cardiovascular: Reports: other - on Levophed Allergies: Coded Allergies: No Known Allergies (Unverified , 05/28/19) Objective Vital Signs Last 24 Hour Vital Signs Date Time Temp Pulse Resp B/P (MAP) Pulse Ox O2 Delivery O2 Flow Rate FiO2 07/20/19 10:00 128 30 75/51 (59) 100 07/20/19 09:30 128 31 93/67 (76) 100 07/20/19 09:00 129 31 99/63 (75) 100 07/20/19 08:45 102.0 07/20/19 08:30 134 35 113/69 (84) 100 07/20/19 08:00 100.5 132 35 111/74 (86) 100 07/20/19 08:00 33 111/74 Mechanical Ventilator 60 07/20/19 08:00 111/74 07/20/19 08:00 60 07/20/19 08:00 Mechanical Ventilator 07/20/19 07:30 135 35 97/67 (77) 100 07/20/19 07:27 134 34 100 Mechanical Ventilator 60 134 35 60 07/20/19 07:00 131 35 114/80 (91) 100 07/20/19 07:00 35 114/80 Mechanical Ventilator 60 07/20/19 07:00 114/80 07/20/19 06:00 31 108/63 Mechanical Ventilator 60 07/20/19 06:00 108/63 07/20/19 06:00 127 31 108/63 (78) 100 07/20/19 05:30 108/81 07/20/19 05:30 128 33 99/76 (84) 100 07/20/19 05:00 31 108/81 Mechanical Ventilator 60 07/20/19 05:00 108/81 07/20/19 05:00 125 31 108/81 (90) 100 07/20/19 04:30 126 32 99/67 (78) 100 07/20/19 04:00 60 07/20/19 04:00 Mechanical Ventilator 07/20/19 04:00 99.8 131 33 95/67 (76) 100 07/20/19 04:00 33 95/67 Mechanical Ventilator 60 07/20/19 04:00 95/67 07/20/19 04:00 135 07/20/19 03:55 135 37 100 Mechanical Ventilator 60 135 37 60 07/20/19 03:30 133 37 137/76 (96) 100 07/20/19 03:00 41 109/71 Mechanical Ventilator 60 07/20/19 03:00 109/71 07/20/19 03:00 133 41 109/71 (84) 100 07/20/19 02:30 129 36 110/73 (85) 100 07/20/19 02:00 38 98/70 Mechanical Ventilator 60 07/20/19 02:00 98/70 07/20/19 02:00 136 38 98/70 (79) 100 07/20/19 01:30 99.7 152 66 122/75 (91) 100 07/20/19 01:15 131/89 07/20/19 01:00 60 157/140 Mechanical Ventilator 60 07/20/19 01:00 157/140 07/20/19 01:00 143 60 157/140 (146) 100 07/20/19 00:30 135 17 130/88 (102) 100 07/20/19 00:00 125 07/20/19 00:00 Mechanical Ventilator 07/20/19 00:00 30 111/73 Mechanical Ventilator 60 07/20/19 00:00 111/73 07/20/19 00:00 103.5 134 30 111/73 (86) 100 07/20/19 00:00 60 07/19/19 23:30 133 32 118/78 (91) 100 07/19/19 23:14 135 31 100 Mechanical Ventilator 60 138 31 60 07/19/19 23:00 32 127/77 Mechanical Ventilator 60 07/19/19 23:00 127/77 07/19/19 23:00 138 32 127/77 (94) 100 07/19/19 22:30 134 30 107/88 (94) 100 07/19/19 22:00 30 95/65 Mechanical Ventilator 60 07/19/19 22:00 95/95 07/19/19 22:00 133 30 95/65 (75) 100 07/19/19 21:30 134 30 102/81 (88) 100 07/19/19 21:00 139 30 99/60 (73) 99 07/19/19 21:00 30 99/60 Mechanical Ventilator 60 07/19/19 21:00 99/60 07/19/19 20:45 97/63 07/19/19 20:45 144 36 97/63 (74) 100 07/19/19 20:30 150 56 93/66 (75) 93 07/19/19 20:00 Mechanical Ventilator 07/19/19 20:00 60 07/19/19 20:00 101.2 152 45 103/84 (90) 94 07/19/19 20:00 45 103/84 Mechanical Ventilator 60 07/19/19 20:00 103/84 07/19/19 20:00 137 07/19/19 19:30 137 33 92/69 (77) 100 07/19/19 19:22 123 34 98 Mechanical Ventilator 60 126 47 60 07/19/19 19:00 145 31 125/74 (91) 100 07/19/19 18:30 143 35 114/89 (97) 100 07/19/19 18:00 128 30 135/90 (105) 100 07/19/19 18:00 135/90 07/19/19 17:30 128 29 103/72 (82) 100 07/19/19 17:00 72/34 07/19/19 17:00 126 32 94/67 (76) 100 07/19/19 16:45 96/67 07/19/19 16:40 88/64 07/19/19 16:35 86/58 07/19/19 16:30 126 32 93/62 (72) 100 07/19/19 16:30 88/61 6/8/20 16:25 85/62 07/19/19 16:20 71/55 07/19/19 16:15 57/39 07/19/19 16:10 71/43 07/19/19 16:05 68/42 07/19/19 16:02 136 07/19/19 16:00 100 07/19/19 16:00 72/34 07/19/19 16:00 98.0 137 29 72/34 (47) 98 07/19/19 16:00 Mechanical Ventilator 07/19/19 15:45 65/43 07/19/19 15:30 141 43 111/84 (93) 98 07/19/19 15:30 53/42 07/19/19 15:10 142 47 98 Mechanical Ventilator 100 142 47 30 07/19/19 15:00 141 43 128/85 (99) 98 07/19/19 14:43 45 91/61 Mechanical Ventilator 100 07/19/19 14:30 142 42 91/61 (71) 97 07/19/19 14:00 141 41 90/62 (71) 94 07/19/19 13:30 139 35 122/78 (93) 100 07/19/19 13:00 140 34 107/80 (89) 100 07/19/19 12:30 142 36 101/66 (78) 100 07/19/19 12:30 140 34 116/77 (90) 100 07/19/19 12:07 100/74 07/19/19 12:00 121 07/19/19 12:00 30 07/19/19 12:00 100.5 142 36 100/74 (83) 100 07/19/19 12:00 Mechanical Ventilator 07/19/19 12:00 139 36 115/93 (100) 100 07/19/19 11:30 142 37 101/73 (82) 100 07/19/19 11:30 139 37 110/72 (85) 100 07/19/19 11:15 132 32 100 Mechanical Ventilator 30 132 32 30 07/19/19 11:00 136 35 100/69 (79) 100 07/19/19 11:00 140 35 94/73 (80) 100 Height (Feet): 6 Height (Inches): 1.00 Weight (Pounds): 187 HEENT: status post trach Respiratory/Chest: other - on ventilator, FIO2=60% Cardiovascular: tachycardia, other - HD & central line Abdomen: soft, non tender, other - GT feeding Extremities: no edema Neurologic/Psychiatric: unresponsiveness Laboratory Tests Test 07/19/19 14:27 07/20/19 03:40 Arterial Blood pH 7.343 (7.350-7.450) Arterial Blood Partial Pressure CO2 37.9 mmHg (35.0-45.0) Arterial Blood Partial Pressure O2 444.7 mmHg (75.0-100.0) H Arterial Blood HCO3 20.1 mmol/L (22.0-26.0) L Arterial Blood Oxygen Saturation 99.8 % (95-100) Arterial Blood Base Excess -5.1 (-2-2) L Kosta Test Positive White Blood Count 22.2 K/UL (4.8-10.8) *H Red Blood Count 4.13 M/UL (4.70-6.10) L Hemoglobin 11.9 G/DL (14.2-18.0) L Hematocrit 36.5 % (42.0-52.0) L Mean Corpuscular Volume 88 FL (80-99) Mean Corpuscular Hemoglobin 28.9 PG (27.0-31.0) Mean Corpuscular Hemoglobin Concent 32.6 G/DL (32.0-36.0) Red Cell Distribution Width 16.1 % (11.6-14.8) H Platelet Count 544 K/UL (150-450) H Mean Platelet Volume 6.2 FL (6.5-10.1) L Neutrophils (%) (Auto) % (45.0-75.0) Lymphocytes (%) (Auto) % (20.0-45.0) Monocytes (%) (Auto) % (1.0-10.0) Eosinophils (%) (Auto) % (0.0-3.0) Basophils (%) (Auto) % (0.0-2.0) Differential Total Cells Counted 100 Neutrophils % (Manual) 89 % (45-75) H Lymphocytes % (Manual) 8 % (20-45) L Monocytes % (Manual) 3 % (1-10) Eosinophils % (Manual) 0 % (0-3) Basophils % (Manual) 0 % (0-2) Band Neutrophils 0 % (0-8) Platelet Estimate Increased H Platelet Morphology Normal Polychromasia 1+ Hypochromasia 1+ Anisocytosis 1+ Sodium Level 136 MMOL/L (136-145) Potassium Level 4.2 MMOL/L (3.5-5.1) Chloride Level 94 MMOL/L (98-107) L Carbon Dioxide Level 21 MMOL/L (21-32) Anion Gap 21 mmol/L (5-15) H Blood Urea Nitrogen 85 mg/dL (7-18) H Creatinine 11.0 MG/DL (0.55-1.30) H Estimat Glomerular Filtration Rate 4.7 mL/min (>60) Glucose Level 316 MG/DL (74-106) H Calcium Level 9.9 MG/DL (8.5-10.1) Phosphorus Level 5.3 MG/DL (2.5-4.9) H Total Bilirubin 0.5 MG/DL (0.2-1.0) Aspartate Amino Transf (AST/SGOT) 25 U/L (15-37) Alanine Aminotransferase (ALT/SGPT) 19 U/L (12-78) Alkaline Phosphatase 184 U/L (46-116) H C-Reactive Protein, Quantitative 11.8 mg/dL (0.00-0.90) H Total Protein 10.0 G/DL (6.4-8.2) H Albumin 2.8 G/DL (3.4-5.0) L Globulin 7.2 g/dL Albumin/Globulin Ratio 0.4 (1.0-2.7) L Current Medications Medications (Trade) Dose Ordered Sig/Anthony Route PRN Reason Start Time Stop Time Status Last Admin Dose Admin Acetaminophen (Tylenol) 650 mg Q4H PRN NG For Pain 07/11/19 08:00 08/10/19 07:59 07/20/19 08:15 Albuterol Sulfate (Proventil MDI) 2 puff Q4HRT INH 06/06/19 23:00 08/30/19 18:59 07/20/19 07:27 Cefepime HCl 500 mg/Dextrose 55 ml @ 110 mls/hr Q24H IV 07/20/19 12:00 07/27/19 11:59 Chlorhexidine Gluconate (Michelle-Hex 2%) 1 applic DAILY@2000 TOPIC 06/07/19 20:00 09/05/19 19:59 07/19/19 20:45 Dextrose (Dextrose 50%) 25 ml Q30M PRN IV Hypoglycemia 06/20/19 19:30 09/18/19 19:29 Dextrose (Dextrose 50%) 50 ml Q30M PRN IV Hypoglycemia 06/20/19 19:30 09/18/19 19:29 Dopamine HCl/ Dextrose 250 ml @ 0 mls/hr Q24H PRN IV For hypotension 06/13/19 08:15 09/11/19 08:14 07/17/19 08:46 Enoxaparin Sodium (Lovenox) 30 mg DAILY SUBQ 06/07/19 09:00 08/27/19 08:59 07/20/19 08:15 Epoetin Aftab (Epoetin Aftab(ESRD on dialysis)) 10,000 unit SUBQ 06/07/19 21:00 08/31/19 20:59 07/19/19 21:00 Fentanyl Citrate 250 ml @ 0 mls/hr Q24H IV 07/19/19 14:06 10/17/19 14:05 07/19/19 14:43 Haloperidol Lactate 5 mg/ Dextrose 56 ml @ 224 mls/hr Q6H PRN IVPB Agitation 07/11/19 15:00 08/25/19 14:59 07/15/19 02:36 Hydralazine HCl (Apresoline) 10 mg Q4H PRN IV Blood pressure over 160 systol 06/07/19 10:15 09/05/19 10:14 Insulin Aspart (NovoLOG) EVERY 6 HOURS SUBQ 06/21/19 00:00 09/19/19 00:00 07/20/19 06:19 Levofloxacin (Levaquin) 500 mg EVERY OTHER DAY GT 07/21/19 09:00 07/28/19 08:59 Midodrine (Pro-Amatine) 10 mg Q8HR ORAL 07/17/19 14:00 10/15/19 10:29 07/19/19 22:49 Norepinephrine Bitartrate 8 mg/ Dextrose 283 ml @ 0 mls/hr Q24H IV 06/23/19 23:00 07/23/19 22:59 07/20/19 05:30 Sevelamer Carbonate (Renvela) 2,400 mg Q6HR NG 07/14/19 12:00 10/12/19 13:59 07/20/19 05:29 Ted Leyva MD Jul 20, 2019 10:38
[2019-07-20] MEDS ORDERED: Vancomycin 1.5gm/NS Premix IVPB ONE (12:00)
[2019-07-20] MEDS: Cefepime 500mg/D5W 55ml IV SCH ×2 (12:06)
--- NOTE | 2019-07-20 13:58 | Nephrology Progress Note ---
Assessment/Plan Problem List: (1) CASSANDRA (acute kidney injury) (2) Anemia in chronic kidney disease (CKD) (3) HTN (hypertension) (4) COVID-19 Assessment Acute renal failure most likely superimposed on chronic kidney disease Suspected COVID-19 virus infection Possible Pneumonia, lymphopenia, elevated AST Cardiomegaly, possible CHF COPD Hypertension Anemia, most likely related to chronic kidney disease Plan July 19: Due for dialysis today. Discussed with SHANIQUE Dick. Continue per consultants. July 18: Dialyzed July 16. Will order dialysis tomorrow July 19. Continues to be on ventilator through trach. No labs done today. Continue per consultants. July 17: Dialyzed yesterday. Stable from renal standpoint of view. Remains full code. Status post trach on vent. Status post PEG. Continue per consultants. July 16: Dialysis today. Will resume Midodrin to prevent hypotension. Patient remains full code. July 15: Dialyzed yesterday, due for dialysis tomorrow. Labs and medication list reviewed. Continue per consultants. Patient remains full code. COVID-19 detected again. July 14: Patient currently on dialysis. This is continuation of dialysis from yesterday as yesterday's dialysis was cut short due to catheter malfunction. Labs and medication reviewed. Continue per consultants. July 13: Patient currently on hemodialysis. The dialysis catheter which is a intrajugular Kamlesh has poor flow. Will try TPA. Continue per consultants. July 12: Due for PEG today. Due for dialysis tomorrow. Continue per consultants. Discussed with RN. July 11: Plan for dialysis today. Discussed with RN. Data reviewed. July 10: Plan for dialysis tomorrow July 11. Waiting for consent to proceed with PEG. Continue per consultants. Medication reviewed. Labs reviewed. Discussed with RN. July 09: Dialyzed yesterday. Labs reviewed. Medication reviewed. Next hemodialysis July 11. July 08: Patient has tracheostomy now. Connected to ventilator. Due for dialysis today. Continue per consultants. Discussed with SHANIQUE Romero. July 07: Patient is due for tracheostomy today. Patient was last dialyzed July 05. Will order dialysis for tomorrow. July 06: Patient is intubated on ventilator however the plan is to extubate today. Patient was dialysis yesterday July 05. The dialysis time was cut short due to patient's respiratory distress. Only 1 L was removed during dialysis yesterday. Today's lab reviewed. Continue per consultants. Will arrange for dialysis as needed. July 05: Patient due for dialysis today. Remains intubated. Will schedule permacath placement in a.m. blood cultures on July 04 are negative. July 04: Patient was dialyzed yesterday. Due for dialysis tomorrow. Continues to be intubated. After tomorrow's dialysis will order a permacath. July 03: Dialysis is about to be started now Continues to be intubated Will plan to remove the femoral dialysis catheter and exchanged for a new temporary catheter per ID recommendation We will check surveillance blood culture tomorrow July 02: Patient was dialyzed yesterday and due for dialysis tomorrow Stable from renal standpoint W on dialysis Continue per consultants, weaning....... etc. July 01: Dialysis today Other status unchanged June 30: Due for dialysis tomorrow Remains intubated on ventilator Labs and medication reviewed Discussed with RN Stable from renal standpoint of view June 29: Dialyzed yesterday Due for dialysis tomorrow Stable from renal standpoint to view Keeps failing weaning process June 28: Patient due for dialysis today Stable from renal standpoint to view Continue per consultants June 27: Labs reviewed Due due for dialysis June 28 Discussed with SHANIQUE Dick Continue per consultants Remains intubated on ventilator June 26 Labs reviewed Dialyzed yesterday Started on weaning today Continue to monitor renal parameters June 25: On dialysis now Potassium supplement implemented Continue per consultants Next dialysis June 27June 15: Status unchanged Dialyzed yesterday will dialyze again tomorrow Potassium supplements given Discussed with RN June 14: Due dialysis today Status: Remains intubated on ventilator June 22: Status unchanged Dialyzed yesterday and duefordialysistomorrow Serum sodium stable today June 21 Remains intubated on ventilator Due dialysis today Emphasized high sodium bath for dialysis June 20: Remains intubated on ventilator Dialyzed June 19 next dialysis June 21 Serum sodium 128, will give 250 cc 3% saline Remains full code Discussed with RN Iron panel ordered June 19: Discussed with RN. Patient due for dialysis today. Continue pulmonary support. Remains full code. June 18: Patient dialyzed yesterday June 17 Serum sodium improved but still low Arrange for dialysis tomorrow June 19 Continue per consultants June 17: Due for dialysis today Today's lab reviewed, low serum sodium noted, Emphasized on high sodium bath to dialysis nurse Discussed with SHANIQUE Yuen June 7: Dialyzed yesterday Remains intubated Labs reviewed, serum sodium 131 Plan to dialyze tomorrow June 17 with high sodium bath Discussed with SHANIQUE Yuen June 6: Due for dialysis today Labs reviewed Discussed with RN Transfuse 1 unit of packed RBCs today for low hemoglobin of 7.1 June 5: Blood pressure well maintained Receive dialysis June 13 next hemodialysis June 15June 4: Discussed with RN in ICU Patient did not receive proper dialysis yesterday due to dialysis catheter malfunction Catheter to be adjusted today and dialyzed to be resumed today Continue per consultants Positive for COVID 28 June 2: Patient now intubated on mechanical ventilation Discussed with SHANIQUE Yuen, today June 12 Patient received dialysis yesterday June 10 next hemodialysis June 12 Blood pressure better maintained Today's labs reviewed Continue per consultants Previously patient received dialysis last evening June 05, next dialysis June 07 which was incomplete due to patient's hypotension Will start on midodrine for blood pressure support. Meanwhile continue other pressors as needed Previously Patient is doing poorly, septic, white blood cells are rising, Hypotension somewhat improved We will keep n.p.o. , NG tube for medications, and change medication to IV as needed Patient remains full code Monitor vancomycin level Previously: Patient pulled out his femoral catheter yesterday June 03 which was reinserted by Dr. Mast Patient scheduled for dialysis again June 04, which again was not done due to dialysis nurse citing catheter malfunction Meanwhile continue management per ID, pulmonary , and psych. Meanwhile white blood cell count is rising. Patient blood pressure borderline low. Will check ABG Previously May 31 : I believe patient need dialysis treatment He however needs to competency assessment if can make decisions or not I will communicate with Dr. Mulligan Previously: Per pulmonary and ID advice Adjust blood pressure medication Renal diet Anemia work-up 2D echocardiogram refused Kidney ultrasound refused Jules catheter Urine studies Per orders Subjective ROS Limited/Unobtainable: Yes Objective Objective Last 24 Hour Vital Signs Date Time Temp Pulse Resp B/P (MAP) Pulse Ox O2 Delivery O2 Flow Rate FiO2 07/20/19 13:30 144 39 75/50 (58) 100 07/20/19 13:00 140 34 76/55 (62) 100 07/20/19 12:30 125 29 108/77 (87) 100 07/20/19 12:00 127 07/20/19 12:00 127 32 127/78 (94) 100 07/20/19 11:30 119 29 124/79 (94) 100 07/20/19 11:11 118 28 100 Mechanical Ventilator 50 119 30 50 07/20/19 11:00 31 115/79 Mechanical Ventilator 60 07/20/19 11:00 115/79 07/20/19 11:00 102.8 119 30 115/79 (91) 100 07/20/19 10:41 96/59 07/20/19 10:30 132 32 96/59 (71) 100 07/20/19 10:00 33 75/51 Mechanical Ventilator 60 07/20/19 10:00 75/51 07/20/19 10:00 128 30 75/51 (59) 100 07/20/19 09:30 128 31 93/67 (76) 100 07/20/19 09:00 129 31 99/63 (75) 100 07/20/19 09:00 33 99/63 Mechanical Ventilator 60 07/20/19 09:00 99/63 07/20/19 08:45 102.0 07/20/19 08:30 134 35 113/69 (84) 100 07/20/19 08:00 100.5 132 35 111/74 (86) 100 07/20/19 08:00 131 07/20/19 08:00 33 111/74 Mechanical Ventilator 60 07/20/19 08:00 111/74 07/20/19 08:00 60 07/20/19 08:00 Mechanical Ventilator 07/20/19 07:30 135 35 97/67 (77) 100 07/20/19 07:27 134 34 100 Mechanical Ventilator 60 134 35 60 07/20/19 07:00 131 35 114/80 (91) 100 07/20/19 07:00 35 114/80 Mechanical Ventilator 60 07/20/19 07:00 114/80 07/20/19 06:00 31 108/63 Mechanical Ventilator 60 07/20/19 06:00 108/63 07/20/19 06:00 127 31 108/63 (78) 100 07/20/19 05:30 108/81 07/20/19 05:30 128 33 99/76 (84) 100 07/20/19 05:00 31 108/81 Mechanical Ventilator 60 07/20/19 05:00 108/81 07/20/19 05:00 125 31 108/81 (90) 100 07/20/19 04:30 126 32 99/67 (78) 100 07/20/19 04:00 60 07/20/19 04:00 Mechanical Ventilator 07/20/19 04:00 99.8 131 33 95/67 (76) 100 07/20/19 04:00 33 95/67 Mechanical Ventilator 60 07/20/19 04:00 95/67 07/20/19 04:00 135 07/20/19 03:55 135 37 100 Mechanical Ventilator 60 135 37 60 07/20/19 03:30 133 37 137/76 (96) 100 07/20/19 03:00 41 109/71 Mechanical Ventilator 60 07/20/19 03:00 109/71 07/20/19 03:00 133 41 109/71 (84) 100 07/20/19 02:30 129 36 110/73 (85) 100 07/20/19 02:00 38 98/70 Mechanical Ventilator 60 07/20/19 02:00 98/70 07/20/19 02:00 136 38 98/70 (79) 100 07/20/19 01:30 99.7 152 66 122/75 (91) 100 07/20/19 01:15 131/89 07/20/19 01:00 60 157/140 Mechanical Ventilator 60 07/20/19 01:00 157/140 07/20/19 01:00 143 60 157/140 (146) 100 07/20/19 00:30 135 17 130/88 (102) 100 07/20/19 00:00 125 07/20/19 00:00 Mechanical Ventilator 07/20/19 00:00 30 111/73 Mechanical Ventilator 60 07/20/19 00:00 111/73 07/20/19 00:00 103.5 134 30 111/73 (86) 100 07/20/19 00:00 60 07/19/19 23:30 133 32 118/78 (91) 100 07/19/19 23:14 135 31 100 Mechanical Ventilator 60 138 31 60 07/19/19 23:00 32 127/77 Mechanical Ventilator 60 07/19/19 23:00 127/77 07/19/19 23:00 138 32 127/77 (94) 100 07/19/19 22:30 134 30 107/88 (94) 100 07/19/19 22:00 30 95/65 Mechanical Ventilator 60 07/19/19 22:00 95/95 07/19/19 22:00 133 30 95/65 (75) 100 07/19/19 21:30 134 30 102/81 (88) 100 07/19/19 21:00 139 30 99/60 (73) 99 07/19/19 21:00 30 99/60 Mechanical Ventilator 60 07/19/19 21:00 99/60 07/19/19 20:45 97/63 07/19/19 20:45 144 36 97/63 (74) 100 07/19/19 20:30 150 56 93/66 (75) 93 07/19/19 20:00 Mechanical Ventilator 07/19/19 20:00 60 07/19/19 20:00 101.2 152 45 103/84 (90) 94 07/19/19 20:00 45 103/84 Mechanical Ventilator 60 07/19/19 20:00 103/84 07/19/19 20:00 137 07/19/19 19:30 137 33 92/69 (77) 100 07/19/19 19:22 123 34 98 Mechanical Ventilator 60 126 47 60 07/19/19 19:00 145 31 125/74 (91) 100 07/19/19 18:30 143 35 114/89 (97) 100 07/19/19 18:00 128 30 135/90 (105) 100 07/19/19 18:00 135/90 07/19/19 17:30 128 29 103/72 (82) 100 07/19/19 17:00 72/34 07/19/19 17:00 126 32 94/67 (76) 100 07/19/19 16:45 96/67 07/19/19 16:40 88/64 07/19/19 16:35 86/58 07/19/19 16:30 126 32 93/62 (72) 100 07/19/19 16:30 88/61 07/19/19 16:25 85/62 07/19/19 16:20 71/55 07/19/19 16:15 57/39 07/19/19 16:10 71/43 07/19/19 16:05 68/42 07/19/19 16:02 136 07/19/19 16:00 100 07/19/19 16:00 72/34 07/19/19 16:00 98.0 137 29 72/34 (47) 98 07/19/19 16:00 Mechanical Ventilator 07/19/19 15:45 65/43 07/19/19 15:30 141 43 111/84 (93) 98 07/19/19 15:30 53/42 07/19/19 15:10 142 47 98 Mechanical Ventilator 100 142 47 30 07/19/19 15:00 141 43 128/85 (99) 98 07/19/19 14:43 45 91/61 Mechanical Ventilator 100 07/19/19 14:30 142 42 91/61 (71) 97 07/19/19 14:00 141 41 90/62 (71) 94 Intake and Output 07/19/19 07/20/19 19:00 07:00 Intake Total 835.11272 ml 1379.90737 ml Balance 835.24449 ml 1379.84433 ml Free Water 180 ml IV Total 320.81840 ml 779.16378 ml Tube Feeding 385 ml 420 ml Other 130 ml # Bowel Movements 1 Laboratory Tests 07/19/19 14:27: Arterial Blood pH 7.343L, Arterial Blood Partial Pressure CO2 37.9, Arterial Blood Partial Pressure O2 444.7H, Arterial Blood HCO3 20.1L, Arterial Blood Oxygen Saturation 99.8, Arterial Blood Base Excess -5.1L, Kosta Test Positive 07/20/19 03:40: White Blood Count 22.2*H, Red Blood Count 4.13L, Hemoglobin 11.9L, Hematocrit 36.5L, Mean Corpuscular Volume 88, Mean Corpuscular Hemoglobin 28.9, Mean Corpuscular Hemoglobin Concent 32.6, Red Cell Distribution Width 16.1H, Platelet Count 544H, Mean Platelet Volume 6.2L, Neutrophils (%) (Auto) , Lymphocytes (%) (Auto) , Monocytes (%) (Auto) , Eosinophils (%) (Auto) , Basophils (%) (Auto) , Differential Total Cells Counted 100, Neutrophils % ( Manual) 89H, Lymphocytes % (Manual) 8L, Monocytes % (Manual) 3, Eosinophils % ( Manual) 0, Basophils % (Manual) 0, Band Neutrophils 0, Platelet Estimate IncreasedH, Platelet Morphology Normal, Polychromasia 1+, Hypochromasia 1+, Anisocytosis 1+, Sodium Level 136, Potassium Level 4.2, Chloride Level 94L, Carbon Dioxide Level 21, Anion Gap 21H, Blood Urea Nitrogen 85H, Creatinine 11.0H, Estimat Glomerular Filtration Rate 4.7, Glucose Level 316H, Calcium Level 9.9, Phosphorus Level 5.3H, Total Bilirubin 0.5, Aspartate Amino Transf ( AST/SGOT) 25, Alanine Aminotransferase (ALT/SGPT) 19, Alkaline Phosphatase 184H , C-Reactive Protein, Quantitative 11.8H, Total Protein 10.0H, Albumin 2.8L, Globulin 7.2, Albumin/Globulin Ratio 0.4L Height (Feet): 6 Height (Inches): 1.00 Weight (Pounds): 187 General Appearance: no apparent distress EENT: other - Trach and vent Cardiovascular: tachycardia Respiratory/Chest: decreased breath sounds Abdomen: distended Objective No change Mic Cole MD Jul 20, 2019 13:58
--- NOTE | 2019-07-20 15:32 | Surgery Progress Note ---
Surgery Progress Note Subjective Procedure Performed Right femoral temporary hemodialysis catheter removal Additional Comments maxed out on levo HD nw no n/v/ labs noted Objective Last 24 Hour Vital Signs Date Time Temp Pulse Resp B/P (MAP) Pulse Ox O2 Delivery O2 Flow Rate FiO2 07/20/19 15:00 117 35 99/60 (73) 100 07/20/19 14:30 122 35 80/61 (67) 100 07/20/19 14:17 67/48 07/20/19 14:00 122 35 90/61 (71) 100 07/20/19 13:30 144 39 75/50 (58) 100 07/20/19 13:00 140 34 76/55 (62) 100 07/20/19 12:30 125 29 108/77 (87) 100 07/20/19 12:00 127 07/20/19 12:00 50 07/20/19 12:00 127 32 127/78 (94) 100 07/20/19 11:30 119 29 124/79 (94) 100 07/20/19 11:11 118 28 100 Mechanical Ventilator 50 119 30 50 07/20/19 11:00 31 115/79 Mechanical Ventilator 60 07/20/19 11:00 115/79 07/20/19 11:00 102.8 119 30 115/79 (91) 100 07/20/19 10:41 96/59 07/20/19 10:30 132 32 96/59 (71) 100 07/20/19 10:00 33 75/51 Mechanical Ventilator 60 07/20/19 10:00 75/51 07/20/19 10:00 128 30 75/51 (59) 100 07/20/19 09:30 128 31 93/67 (76) 100 07/20/19 09:00 129 31 99/63 (75) 100 07/20/19 09:00 33 99/63 Mechanical Ventilator 60 07/20/19 09:00 99/63 07/20/19 08:45 102.0 07/20/19 08:30 134 35 113/69 (84) 100 07/20/19 08:00 100.5 132 35 111/74 (86) 100 07/20/19 08:00 131 07/20/19 08:00 33 111/74 Mechanical Ventilator 60 07/20/19 08:00 111/74 07/20/19 08:00 60 07/20/19 08:00 Mechanical Ventilator 07/20/19 07:30 135 35 97/67 (77) 100 07/20/19 07:27 134 34 100 Mechanical Ventilator 60 134 35 60 07/20/19 07:00 131 35 114/80 (91) 100 07/20/19 07:00 35 114/80 Mechanical Ventilator 60 07/20/19 07:00 114/80 07/20/19 06:00 31 108/63 Mechanical Ventilator 60 07/20/19 06:00 108/63 07/20/19 06:00 127 31 108/63 (78) 100 07/20/19 05:30 108/81 07/20/19 05:30 128 33 99/76 (84) 100 07/20/19 05:00 31 108/81 Mechanical Ventilator 60 07/20/19 05:00 108/81 07/20/19 05:00 125 31 108/81 (90) 100 07/20/19 04:30 126 32 99/67 (78) 100 07/20/19 04:00 60 07/20/19 04:00 Mechanical Ventilator 07/20/19 04:00 99.8 131 33 95/67 (76) 100 07/20/19 04:00 33 95/67 Mechanical Ventilator 60 07/20/19 04:00 95/67 07/20/19 04:00 135 07/20/19 03:55 135 37 100 Mechanical Ventilator 60 135 37 60 07/20/19 03:30 133 37 137/76 (96) 100 07/20/19 03:00 41 109/71 Mechanical Ventilator 60 07/20/19 03:00 109/71 07/20/19 03:00 133 41 109/71 (84) 100 07/20/19 02:30 129 36 110/73 (85) 100 07/20/19 02:00 38 98/70 Mechanical Ventilator 60 07/20/19 02:00 98/70 07/20/19 02:00 136 38 98/70 (79) 100 07/20/19 01:30 99.7 152 66 122/75 (91) 100 07/20/19 01:15 131/89 07/20/19 01:00 60 157/140 Mechanical Ventilator 60 07/20/19 01:00 157/140 07/20/19 01:00 143 60 157/140 (146) 100 07/20/19 00:30 135 17 130/88 (102) 100 07/20/19 00:00 125 07/20/19 00:00 Mechanical Ventilator 07/20/19 00:00 30 111/73 Mechanical Ventilator 60 07/20/19 00:00 111/73 07/20/19 00:00 103.5 134 30 111/73 (86) 100 07/20/19 00:00 60 07/19/19 23:30 133 32 118/78 (91) 100 07/19/19 23:14 135 31 100 Mechanical Ventilator 60 138 31 60 07/19/19 23:00 32 127/77 Mechanical Ventilator 60 07/19/19 23:00 127/77 07/19/19 23:00 138 32 127/77 (94) 100 07/19/19 22:30 134 30 107/88 (94) 100 07/19/19 22:00 30 95/65 Mechanical Ventilator 60 07/19/19 22:00 95/95 07/19/19 22:00 133 30 95/65 (75) 100 07/19/19 21:30 134 30 102/81 (88) 100 07/19/19 21:00 139 30 99/60 (73) 99 07/19/19 21:00 30 99/60 Mechanical Ventilator 60 07/19/19 21:00 99/60 07/19/19 20:45 97/63 07/19/19 20:45 144 36 97/63 (74) 100 07/19/19 20:30 150 56 93/66 (75) 93 07/19/19 20:00 Mechanical Ventilator 07/19/19 20:00 60 07/19/19 20:00 101.2 152 45 103/84 (90) 94 07/19/19 20:00 45 103/84 Mechanical Ventilator 60 07/19/19 20:00 103/84 07/19/19 20:00 137 07/19/19 19:30 137 33 92/69 (77) 100 07/19/19 19:22 123 34 98 Mechanical Ventilator 60 126 47 60 07/19/19 19:00 145 31 125/74 (91) 100 07/19/19 18:30 143 35 114/89 (97) 100 07/19/19 18:00 128 30 135/90 (105) 100 07/19/19 18:00 135/90 07/19/19 17:30 128 29 103/72 (82) 100 07/19/19 17:00 72/34 07/19/19 17:00 126 32 94/67 (76) 100 07/19/19 16:45 96/67 07/19/19 16:40 88/64 07/19/19 16:35 86/58 07/19/19 16:30 126 32 93/62 (72) 100 07/19/19 16:30 88/61 07/19/19 16:25 85/62 07/19/19 16:20 71/55 07/19/19 16:15 57/39 07/19/19 16:10 71/43 07/19/19 16:05 68/42 07/19/19 16:02 136 07/19/19 16:00 100 07/19/19 16:00 72/34 07/19/19 16:00 98.0 137 29 72/34 (47) 98 07/19/19 16:00 Mechanical Ventilator 07/19/19 15:45 65/43 I&O Intake and Output 07/19/19 07/20/19 19:00 07:00 Intake Total 835.10168 ml 1379.60682 ml Balance 835.94702 ml 1379.71369 ml Free Water 180 ml IV Total 320.08716 ml 779.98718 ml Tube Feeding 385 ml 420 ml Other 130 ml # Bowel Movements 1 Dressing: other Wound: other Drains: other Cardiovascular: RSR Respiratory: decreased breath sounds Abdomen: soft, present bowel sounds Extremities: no cyanosis Laboratory Tests Test 07/20/19 03:40 White Blood Count 22.2 K/UL (4.8-10.8) *H Red Blood Count 4.13 M/UL (4.70-6.10) L Hemoglobin 11.9 G/DL (14.2-18.0) L Hematocrit 36.5 % (42.0-52.0) L Mean Corpuscular Volume 88 FL (80-99) Mean Corpuscular Hemoglobin 28.9 PG (27.0-31.0) Mean Corpuscular Hemoglobin Concent 32.6 G/DL (32.0-36.0) Red Cell Distribution Width 16.1 % (11.6-14.8) H Platelet Count 544 K/UL (150-450) H Mean Platelet Volume 6.2 FL (6.5-10.1) L Neutrophils (%) (Auto) % (45.0-75.0) Lymphocytes (%) (Auto) % (20.0-45.0) Monocytes (%) (Auto) % (1.0-10.0) Eosinophils (%) (Auto) % (0.0-3.0) Basophils (%) (Auto) % (0.0-2.0) Differential Total Cells Counted 100 Neutrophils % (Manual) 89 % (45-75) H Lymphocytes % (Manual) 8 % (20-45) L Monocytes % (Manual) 3 % (1-10) Eosinophils % (Manual) 0 % (0-3) Basophils % (Manual) 0 % (0-2) Band Neutrophils 0 % (0-8) Platelet Estimate Increased H Platelet Morphology Normal Polychromasia 1+ Hypochromasia 1+ Anisocytosis 1+ Sodium Level 136 MMOL/L (136-145) Potassium Level 4.2 MMOL/L (3.5-5.1) Chloride Level 94 MMOL/L (98-107) L Carbon Dioxide Level 21 MMOL/L (21-32) Anion Gap 21 mmol/L (5-15) H Blood Urea Nitrogen 85 mg/dL (7-18) H Creatinine 11.0 MG/DL (0.55-1.30) H Estimat Glomerular Filtration Rate 4.7 mL/min (>60) Glucose Level 316 MG/DL (74-106) H Calcium Level 9.9 MG/DL (8.5-10.1) Phosphorus Level 5.3 MG/DL (2.5-4.9) H Total Bilirubin 0.5 MG/DL (0.2-1.0) Aspartate Amino Transf (AST/SGOT) 25 U/L (15-37) Alanine Aminotransferase (ALT/SGPT) 19 U/L (12-78) Alkaline Phosphatase 184 U/L (46-116) H C-Reactive Protein, Quantitative 11.8 mg/dL (0.00-0.90) H Total Protein 10.0 G/DL (6.4-8.2) H Albumin 2.8 G/DL (3.4-5.0) L Globulin 7.2 g/dL Albumin/Globulin Ratio 0.4 (1.0-2.7) L Plan Problems: (1) Suspected COVID-19 virus infection (2) HTN (hypertension) (3) CASSANDRA (acute kidney injury) Assessment & Plan: Needs urgent HD needs access patient okay and consented see note will follow with recs new line placed discussed with team and nephrology HD line functional when checked has TPA now please use appropriately Cathflo used again this flow during dialysis on 430 was low. Will monitor may need line change 5/ plan for HD as per renal may need to take fluid off with HD edema anasarca dressings saturated and changed will monitor cont with HD IJ left line placed for HD given extent of prior line in place. leukocytosis blood cx negative may need to change out line new line okay HD going well (4) Anemia in chronic kidney disease (CKD) (5) Anemia (6) Renal failure (7) Suspected COVID-19 virus infection Assessment & Plan: Pt deconditioned and despite all skin preventions Pt noted to have developed several pressure injuries. . Stable dry eschar noted to clefts of R and L ears. No erythema noted . DTPI noted to L trochanter. Base of injury is maroon in colour with marginal erythema along borders. Partially opened DTPI Sacrum, R and L Buttocks. Base of wound is maroon with two small open wounds L sacrum and L buttocks. Pt has an APM/MOMO Mattress overlay and is being positioned with pillows as per tolerance and within protocols. worsening despite medical efforts will cont to provide therapy Tx.Plan: Apply Cavilon Skin Barrier to both ears Daily and prn. Apply Moisture Barrier Paste to Sacrum,R and L Buttocks. Cover with Optifoam drsgs. Change every 3 days and PRN. Apply Cavilon Skin Barrier to R and L trochanter. Cover each site with Optifoam drsgs.Change every 7 days and PRN. Apply Cavilon Skin Barrier to both heels. Cover each heel with Optifoam drsg. Change every 7 days and prn. Off-load heels with pillow. Reposition at least every 2hours or as tolerated. APM/MOMO Mattress overlay. (8) COVID-19 Assessment & Plan: COVID + c diff negative febrile leukocytosis renal insufficiency see above cont resp care Rx as per ID worsening on vent support now cxr noted on pressors prognosis guarded repeat covid ++ weaning vent and pressors off slowly showing improvement slowly recovering will need trach as unable to wean vent safely called and spoke with country conservatorship. consent obtained s/p trach pending peg worsening on levo Yaniv Taylor Jul 20, 2019 15:32
[2019-07-20] MEDS: fentaNYL 2500mcg/NS 250ml 250 ML IV SCH (15:35)
[2019-07-20] MEDS: Dyna-Hex 2% Top Sol 2oz TOPIC SCH (20:12)
--- NOTE | 2019-07-20 21:20 | General Progress Note ---
Assessment/Plan Problem List: (1) HTN (hypertension) ICD Codes: I10 - Essential (primary) hypertension SNOMED: 46788156 (2) CASSANDRA (acute kidney injury) ICD Codes: N17.9 - Acute kidney failure, unspecified SNOMED: 9167114, 87594376 (3) Anemia in chronic kidney disease (CKD) ICD Codes: N18.9 - Chronic kidney disease, unspecified; D63.1 - Anemia in chronic kidney disease SNOMED: 709058685 (4) Renal failure ICD Codes: N19 - Unspecified kidney failure SNOMED: 13460870 (5) Respiratory failure requiring intubation ICD Codes: J96.90 - Respiratory failure, unspecified, unspecified whether with hypoxia or hypercapnia; A41.89 - Other specified sepsis SNOMED: 824943258, 275404649 (6) Pneumonia due to COVID-19 virus ICD Codes: U07.1 - COVID-19; J12.89 - Other viral pneumonia SNOMED: 593812092, 800172900 (7) Sepsis due to severe acute respiratory syndrome coronavirus 2 (SARS-CoV-2) ICD Codes: U07.1 - COVID-19; A41.89 - Other specified sepsis SNOMED: 495894059, 233926121 Status: progressing, unchanged Assessment/Plan: trach and peg on pressors deterioting worsening renal failure worsening leukocytosis very poor prognosis getting diaylsis s/p covid pna Subjective ROS Limited/Unobtainable: Yes Allergies: Coded Allergies: No Known Allergies (Unverified , 05/28/19) Objective Last 24 Hour Vital Signs Date Time Temp Pulse Resp B/P (MAP) Pulse Ox O2 Delivery O2 Flow Rate FiO2 07/20/19 20:16 99 29 100 Mechanical Ventilator 50 100 29 50 07/20/19 20:00 102 07/20/19 20:00 50 07/20/19 20:00 Mechanical Ventilator 07/20/19 20:00 102 27 120/71 (87) 100 07/20/19 19:30 104 28 113/66 (82) 100 07/20/19 19:02 106/59 07/20/19 19:00 33 97/60 Mechanical Ventilator 50 07/20/19 19:00 106 28 97/60 (72) 100 07/20/19 19:00 97/60 07/20/19 18:51 100.8 6/9/20 18:30 115 31 109/67 (81) 100 07/20/19 18:15 104 26 118/72 (87) 100 07/20/19 18:00 33 118/72 Mechanical Ventilator 50 07/20/19 18:00 118/72 07/20/19 18:00 100.8 108 33 108/64 (79) 100 07/20/19 17:45 108 33 106/72 (83) 100 07/20/19 17:30 110 22 105/72 (83) 100 07/20/19 17:15 112 42 110/71 (84) 99 07/20/19 17:00 34 110/71 Mechanical Ventilator 50 07/20/19 17:00 110/71 07/20/19 17:00 105 33 82/61 (68) 100 07/20/19 16:45 105 33 87/63 (71) 100 07/20/19 16:30 105 33 97/66 (76) 100 07/20/19 16:15 108 33 94/63 (73) 100 07/20/19 16:00 50 07/20/19 16:00 33 94/63 Mechanical Ventilator 50 07/20/19 16:00 94/63 07/20/19 16:00 102.0 112 29 93/66 (75) 100 07/20/19 16:00 112 07/20/19 16:00 Mechanical Ventilator 07/20/19 15:45 114 33 89/54 (66) 100 07/20/19 15:35 30 79/53 Mechanical Ventilator 50 07/20/19 15:30 121 33 79/53 (62) 100 07/20/19 15:03 120 33 100 Mechanical Ventilator 50 117 30 50 07/20/19 15:00 34 99/60 Mechanical Ventilator 50 07/20/19 15:00 99/60 07/20/19 15:00 117 35 99/60 (73) 100 07/20/19 14:30 122 35 80/61 (67) 100 07/20/19 14:17 67/48 07/20/19 14:00 122 35 90/61 (71) 100 07/20/19 14:00 35 80/61 Mechanical Ventilator 50 07/20/19 14:00 80/61 07/20/19 13:30 144 39 75/50 (58) 100 07/20/19 13:00 140 34 76/55 (62) 100 07/20/19 13:00 34 76/55 Mechanical Ventilator 60 07/20/19 13:00 76/55 07/20/19 12:30 125 29 108/77 (87) 100 07/20/19 12:00 127 07/20/19 12:00 32 127/78 Mechanical Ventilator 60 07/20/19 12:00 127/78 07/20/19 12:00 50 07/20/19 12:00 127 32 127/78 (94) 100 07/20/19 12:00 Mechanical Ventilator 07/20/19 11:30 119 29 124/79 (94) 100 07/20/19 11:11 118 28 100 Mechanical Ventilator 50 119 30 50 07/20/19 11:00 31 115/79 Mechanical Ventilator 60 07/20/19 11:00 115/79 07/20/19 11:00 102.8 119 30 115/79 (91) 100 07/20/19 10:41 96/59 07/20/19 10:30 132 32 96/59 (71) 100 07/20/19 10:00 33 75/51 Mechanical Ventilator 60 07/20/19 10:00 75/51 07/20/19 10:00 128 30 75/51 (59) 100 07/20/19 09:30 128 31 93/67 (76) 100 07/20/19 09:00 129 31 99/63 (75) 100 07/20/19 09:00 33 99/63 Mechanical Ventilator 60 07/20/19 09:00 99/63 07/20/19 08:30 134 35 113/69 (84) 100 07/20/19 08:00 100.5 132 35 111/74 (86) 100 07/20/19 08:00 131 07/20/19 08:00 33 111/74 Mechanical Ventilator 60 07/20/19 08:00 111/74 07/20/19 08:00 60 07/20/19 08:00 Mechanical Ventilator 07/20/19 07:30 135 35 97/67 (77) 100 07/20/19 07:27 134 34 100 Mechanical Ventilator 60 134 35 60 07/20/19 07:00 131 35 114/80 (91) 100 07/20/19 07:00 35 114/80 Mechanical Ventilator 60 07/20/19 07:00 114/80 07/20/19 06:00 31 108/63 Mechanical Ventilator 60 07/20/19 06:00 108/63 07/20/19 06:00 127 31 108/63 (78) 100 07/20/19 05:30 108/81 07/20/19 05:30 128 33 99/76 (84) 100 07/20/19 05:00 31 108/81 Mechanical Ventilator 60 07/20/19 05:00 108/81 07/20/19 05:00 125 31 108/81 (90) 100 07/20/19 04:30 126 32 99/67 (78) 100 07/20/19 04:00 60 07/20/19 04:00 Mechanical Ventilator 07/20/19 04:00 99.8 131 33 95/67 (76) 100 07/20/19 04:00 33 95/67 Mechanical Ventilator 60 07/20/19 04:00 95/67 07/20/19 04:00 135 07/20/19 03:55 135 37 100 Mechanical Ventilator 60 135 37 60 07/20/19 03:30 133 37 137/76 (96) 100 07/20/19 03:00 41 109/71 Mechanical Ventilator 60 07/20/19 03:00 109/71 07/20/19 03:00 133 41 109/71 (84) 100 07/20/19 02:30 129 36 110/73 (85) 100 07/20/19 02:00 38 98/70 Mechanical Ventilator 60 07/20/19 02:00 98/70 07/20/19 02:00 136 38 98/70 (79) 100 07/20/19 01:30 99.7 152 66 122/75 (91) 100 07/20/19 01:15 131/89 07/20/19 01:00 60 157/140 Mechanical Ventilator 60 07/20/19 01:00 157/140 07/20/19 01:00 143 60 157/140 (146) 100 07/20/19 00:30 135 17 130/88 (102) 100 07/20/19 00:00 125 07/20/19 00:00 Mechanical Ventilator 07/20/19 00:00 30 111/73 Mechanical Ventilator 60 07/20/19 00:00 111/73 07/20/19 00:00 103.5 134 30 111/73 (86) 100 07/20/19 00:00 60 07/19/19 23:30 133 32 118/78 (91) 100 07/19/19 23:14 135 31 100 Mechanical Ventilator 60 138 31 60 07/19/19 23:00 32 127/77 Mechanical Ventilator 60 07/19/19 23:00 127/77 07/19/19 23:00 138 32 127/77 (94) 100 07/19/19 22:30 134 30 107/88 (94) 100 07/19/19 22:00 30 95/65 Mechanical Ventilator 60 07/19/19 22:00 95/95 07/19/19 22:00 133 30 95/65 (75) 100 07/19/19 21:30 134 30 102/81 (88) 100 Intake and Output 07/19/19 07/20/19 19:00 07:00 Intake Total 835.58565 ml 1379.36276 ml Balance 835.62198 ml 1379.30933 ml Free Water 180 ml IV Total 320.49661 ml 779.67688 ml Tube Feeding 385 ml 420 ml Other 130 ml # Bowel Movements 1 Laboratory Tests 07/20/19 03:40: White Blood Count 22.2*H, Red Blood Count 4.13L, Hemoglobin 11.9L, Hematocrit 36.5L, Mean Corpuscular Volume 88, Mean Corpuscular Hemoglobin 28.9, Mean Corpuscular Hemoglobin Concent 32.6, Red Cell Distribution Width 16.1H, Platelet Count 544H, Mean Platelet Volume 6.2L, Neutrophils (%) (Auto) , Lymphocytes (%) (Auto) , Monocytes (%) (Auto) , Eosinophils (%) (Auto) , Basophils (%) (Auto) , Differential Total Cells Counted 100, Neutrophils % ( Manual) 89H, Lymphocytes % (Manual) 8L, Monocytes % (Manual) 3, Eosinophils % ( Manual) 0, Basophils % (Manual) 0, Band Neutrophils 0, Platelet Estimate IncreasedH, Platelet Morphology Normal, Polychromasia 1+, Hypochromasia 1+, Anisocytosis 1+, Sodium Level 136, Potassium Level 4.2, Chloride Level 94L, Carbon Dioxide Level 21, Anion Gap 21H, Blood Urea Nitrogen 85H, Creatinine 11.0H, Estimat Glomerular Filtration Rate 4.7, Glucose Level 316H, Calcium Level 9.9, Phosphorus Level 5.3H, Total Bilirubin 0.5, Aspartate Amino Transf ( AST/SGOT) 25, Alanine Aminotransferase (ALT/SGPT) 19, Alkaline Phosphatase 184H , C-Reactive Protein, Quantitative 11.8H, Total Protein 10.0H, Albumin 2.8L, Globulin 7.2, Albumin/Globulin Ratio 0.4L Height (Feet): 6 Height (Inches): 1.00 Weight (Pounds): 187 Karishma Mulligan MD Jul 20, 2019 21:20
--- NOTE | 2019-07-20 21:29 | Pulmonolgy Critical Care Note ---
Critical Care - Asmt/Plan Assessment/Plan: Pulmonary CCM Progress Note HPI: Patient is a 68 year old man, group home resident, admitted c/o shortness of breath, cough, noted to have Covid 19 Pneumonia, Respiratory Failure Remains on Ventilator, CXR infiltrates stable ETT adjusted Septic Shock, remains on pressors Preserved EF FIO2 30%, P5, adequate O2 sats, remains on ACVC, s/p Tracheostomy, CXR stable, sp PEG Evaluated earlier ID following Past Medical History: COPD, CKD, Hypertension, Anemia Allergies: No Known Allergies Improving Pulmonary Status on HD Physical Exam Vital Signs Noted Stable on ventilator Chronically ill appearing HEENT: moist mm Chest: Occasional rhonchi, BS equal bilaterally Heart: HS1, HS2, RRR Abdomen: SNTND G tube Extremities: No edema, well perfused FRONT MAN: Non focal, mildly sedated Impression: COVID-19 virus infection Pneumonia Respiratory failure on ventilator, wean as tolerated CKD - on HD Hypotension on pressors previously Cardiomegaly Lymphopenia Elevated AST COPD Chronic Kidney Disease - HD H/o Hypertension Worsening anemia Plan: Tolerated Tracheostomy / G tube Antibiotics per ID HD Pressors PRN ACVC - wean as tolerated once HD more stable [employer] Medications 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 Monitor cultures/viral studies PPX Hemodialysis per Renal Psychiatry following Laboratory Tests Noted: CXR: Hypoventilatory exam, interstitial changes, cardiomegaly, improving infiltrates Subjective ROS Limited/Unobtainable: No Constitutional: Denies: fever Respiratory: Reports: dry cough, shortness of breath Gastrointestinal/Abdominal: Reports: diarrhea, other - colace was stopped Psychiatric: Reports: other - refuses labs Allergies: Coded Allergies: No Known Allergies (Unverified , 05/28/19) All Systems: reviewed and negative except above Labs noted Critical Care - Objective Last 24 Hour Vital Signs Date Time Temp Pulse Resp B/P (MAP) Pulse Ox O2 Delivery O2 Flow Rate FiO2 07/20/19 21:00 93 27 100/60 (73) 100 07/20/19 20:30 101 27 98/60 (73) 100 07/20/19 20:16 99 29 100 Mechanical Ventilator 50 100 29 50 07/20/19 20:00 102 07/20/19 20:00 50 07/20/19 20:00 Mechanical Ventilator 07/20/19 20:00 102 27 120/71 (87) 100 07/20/19 19:30 104 28 113/66 (82) 100 07/20/19 19:02 106/59 07/20/19 19:00 33 97/60 Mechanical Ventilator 50 07/20/19 19:00 106 28 97/60 (72) 100 07/20/19 19:00 97/60 07/20/19 18:51 100.8 07/20/19 18:30 115 31 109/67 (81) 100 07/20/19 18:15 104 26 118/72 (87) 100 07/20/19 18:00 33 118/72 Mechanical Ventilator 50 07/20/19 18:00 118/72 07/20/19 18:00 100.8 108 33 108/64 (79) 100 07/20/19 17:45 108 33 106/72 (83) 100 07/20/19 17:30 110 22 105/72 (83) 100 07/20/19 17:15 112 42 110/71 (84) 99 07/20/19 17:00 34 110/71 Mechanical Ventilator 50 07/20/19 17:00 110/71 07/20/19 17:00 105 33 82/61 (68) 100 07/20/19 16:45 105 33 87/63 (71) 100 07/20/19 16:30 105 33 97/66 (76) 100 07/20/19 16:15 108 33 94/63 (73) 100 07/20/19 16:00 50 07/20/19 16:00 33 94/63 Mechanical Ventilator 50 07/20/19 16:00 94/63 07/20/19 16:00 102.0 112 29 93/66 (75) 100 07/20/19 16:00 112 07/20/19 16:00 Mechanical Ventilator 07/20/19 15:45 114 33 89/54 (66) 100 07/20/19 15:35 30 79/53 Mechanical Ventilator 50 07/20/19 15:30 121 33 79/53 (62) 100 07/20/19 15:03 120 33 100 Mechanical Ventilator 50 117 30 50 07/20/19 15:00 34 99/60 Mechanical Ventilator 50 07/20/19 15:00 99/60 07/20/19 15:00 117 35 99/60 (73) 100 07/20/19 14:30 122 35 80/61 (67) 100 07/20/19 14:17 67/48 07/20/19 14:00 122 35 90/61 (71) 100 07/20/19 14:00 35 80/61 Mechanical Ventilator 50 07/20/19 14:00 80/61 07/20/19 13:30 144 39 75/50 (58) 100 07/20/19 13:00 140 34 76/55 (62) 100 07/20/19 13:00 34 76/55 Mechanical Ventilator 60 07/20/19 13:00 76/55 07/20/19 12:30 125 29 108/77 (87) 100 07/20/19 12:00 127 07/20/19 12:00 32 127/78 Mechanical Ventilator 60 07/20/19 12:00 127/78 07/20/19 12:00 50 07/20/19 12:00 127 32 127/78 (94) 100 07/20/19 12:00 Mechanical Ventilator 07/20/19 11:30 119 29 124/79 (94) 100 07/20/19 11:11 118 28 100 Mechanical Ventilator 50 119 30 50 07/20/19 11:00 31 115/79 Mechanical Ventilator 60 07/20/19 11:00 115/79 07/20/19 11:00 102.8 119 30 115/79 (91) 100 07/20/19 10:41 96/59 07/20/19 10:30 132 32 96/59 (71) 100 07/20/19 10:00 33 75/51 Mechanical Ventilator 60 07/20/19 10:00 75/51 07/20/19 10:00 128 30 75/51 (59) 100 07/20/19 09:30 128 31 93/67 (76) 100 07/20/19 09:00 129 31 99/63 (75) 100 07/20/19 09:00 33 99/63 Mechanical Ventilator 60 07/20/19 09:00 99/63 07/20/19 08:30 134 35 113/69 (84) 100 07/20/19 08:00 100.5 132 35 111/74 (86) 100 07/20/19 08:00 131 07/20/19 08:00 33 111/74 Mechanical Ventilator 60 07/20/19 08:00 111/74 07/20/19 08:00 60 07/20/19 08:00 Mechanical Ventilator 07/20/19 07:30 135 35 97/67 (77) 100 07/20/19 07:27 134 34 100 Mechanical Ventilator 60 134 35 60 07/20/19 07:00 131 35 114/80 (91) 100 07/20/19 07:00 35 114/80 Mechanical Ventilator 60 07/20/19 07:00 114/80 07/20/19 06:00 31 108/63 Mechanical Ventilator 60 07/20/19 06:00 108/63 07/20/19 06:00 127 31 108/63 (78) 100 07/20/19 05:30 108/81 07/20/19 05:30 128 33 99/76 (84) 100 07/20/19 05:00 31 108/81 Mechanical Ventilator 60 07/20/19 05:00 108/81 07/20/19 05:00 125 31 108/81 (90) 100 07/20/19 04:30 126 32 99/67 (78) 100 07/20/19 04:00 60 07/20/19 04:00 Mechanical Ventilator 07/20/19 04:00 99.8 131 33 95/67 (76) 100 07/20/19 04:00 33 95/67 Mechanical Ventilator 60 07/20/19 04:00 95/67 07/20/19 04:00 135 07/20/19 03:55 135 37 100 Mechanical Ventilator 60 135 37 60 07/20/19 03:30 133 37 137/76 (96) 100 07/20/19 03:00 41 109/71 Mechanical Ventilator 60 07/20/19 03:00 109/71 07/20/19 03:00 133 41 109/71 (84) 100 07/20/19 02:30 129 36 110/73 (85) 100 07/20/19 02:00 38 98/70 Mechanical Ventilator 60 07/20/19 02:00 98/70 07/20/19 02:00 136 38 98/70 (79) 100 07/20/19 01:30 99.7 152 66 122/75 (91) 100 07/20/19 01:15 131/89 07/20/19 01:00 60 157/140 Mechanical Ventilator 60 07/20/19 01:00 157/140 07/20/19 01:00 143 60 157/140 (146) 100 07/20/19 00:30 135 17 130/88 (102) 100 07/20/19 00:00 125 07/20/19 00:00 Mechanical Ventilator 07/20/19 00:00 30 111/73 Mechanical Ventilator 60 07/20/19 00:00 111/73 07/20/19 00:00 103.5 134 30 111/73 (86) 100 07/20/19 00:00 60 07/19/19 23:30 133 32 118/78 (91) 100 07/19/19 23:14 135 31 100 Mechanical Ventilator 60 138 31 60 07/19/19 23:00 32 127/77 Mechanical Ventilator 60 07/19/19 23:00 127/77 07/19/19 23:00 138 32 127/77 (94) 100 07/19/19 22:30 134 30 107/88 (94) 100 07/19/19 22:00 30 95/65 Mechanical Ventilator 60 07/19/19 22:00 95/95 07/19/19 22:00 133 30 95/65 (75) 100 07/19/19 21:30 134 30 102/81 (88) 100 Accucheck: 322 Critical Care - Subjective ROS Limited/Unobtainable: No Condition: critical IV Access: central FI02: 50 Vent Support Breath Rate: 26 Vent Support Mode: AC Vent Tidal Volume: 500 Sputum Amount: Small PEEP: 5.0 PIP: 25 Tube Feeding Amount: 35 I&O: Intake and Output 07/19/19 07/20/19 19:00 07:00 Intake Total 835.72331 ml 1379.35260 ml Balance 835.97755 ml 1379.71900 ml Free Water 180 ml IV Total 320.73917 ml 779.08431 ml Tube Feeding 385 ml 420 ml Other 130 ml # Bowel Movements 1 ET-Tube: 7.5 ET Position: 24 Arturo Mckeon MD Jul 20, 2019 21:29
[2019-07-20] MEDS: Norepinephrine Bitartrate 16 MG in D5W 500ml 484 ML IV SCH (23:30)
[2019-07-21] VITALS (50 sets, daily range): BP systolic 86–157; BP diastolic 56–106
[2019-07-21] MEDS: Albuterol 90mcg Inhaler 8gm INH SCH ×6 (03:08→23:08)
[2019-07-21] MEDS: Midodrine 10mg tab ORAL SCH ×3 (05:27→21:00)
[2019-07-21] MEDS: Renvela 2400 mg pkt NG SCH ×4 (05:27→23:08)
[2019-07-21] MEDS: NovoLOG Insulin Flexpen SUBQ SCH ×4 (05:46→23:29)
--- NOTE | 2019-07-21 08:05 | Hematology/Onc Progress Note ---
Assessment/Plan Assessment/Plan Assessment and Recs: # Anemia of chronic disease, likely related ot underlying kidney disease has COIVD19++++++ --> hgb trend 9-->8-->7.3-->7.9-->6.8->9.5-->10->8.3-->7.7-->7.1-->8.9->8.8->7.7 -->8.1 ->7.9-->7.7 -->8.2-->8.1 -->7.9-->8.5 -->9->9.2-->9.5-->10.7 -->9.8--> 10.2-->11.8 -->11.9 --> transfuse as needed, hgb goal >7 --> no evidence of hemolysis --> peripheral smear has been reviewed --> epogen started 3 x a week ==>> transfuse 06/08, 06/15 # Leukocytosis likely related to suspected COVID-19 virus infection --> completed plaquenil --> trend smear as needed --> wbc trend: 4-->11-->14.5-->21-->26-->21->24--.28-->23-->19-->16.2-->21--> 11.2 -->12.5-->12.3-->12.4-->18.5-->18.5-->17->13-->18.2-->22.2 --> pulm is aware --> on abx cefepime/vanc->zosyn/vanc-->dom/vanc-->dom-->levaquin/cefepime, --> pressors as needed --> 06/27 covid 19++ # Thrombocytopenia/Lymphopenia --> likely related to covid19 --> plt 129k-->186k-->251-->285-->384 -->430-->539-->515-->447-->451-->404--> 544 # Respiratory failure with covid19+ --> s/p vent/trach --> weaning # Possible Pneumonia --> abx completed --> 07/13 cxr: Improved right lung infiltrates. # Cardiomegaly # Transaminitis with Elevated AST # COPD # Chronic Kidney Disease --> per renal hd --> s/p right femoral cath 07/02 # Hypertension # Dvt ppx lovenox # peg Appreciate consultation and ernesto Rn Subjective Allergies: Coded Allergies: No Known Allergies (Unverified , 05/28/19) Subjective 06/01 nv, extremely agitated, not allowing labs draws, no night sweats, cbc ordered 06/02 confused, restraints, on abx and plaquenil, hgb 7.9, nrb 15 L 06/03 is with nonrebreather, but not compliant, remains confused 06/05 no bleeding, labs noted, no major bleeding, otherwise comfortable 06/06 labs reviewed, no bleeding, meds noted, no night sweats, on levo and nonrebreather 06/07 labs noted, no bleeding, meds reviewed, no bleeding, wbc higher 06/08 to get 2 units prbc, no night sweats, meds reviewed 06/09 is on cefepime and vanc, labs noted, ernesto Rn, no bleeding 06/10 no major changes, labs reviewed, wbc 28k, on abx, cefepime 06/12 remains in icu, labs noted, no night sweats or bleeding 06/13 sluggish pupils, remains agitated, per psych, no bleding, on vent, wbc sitll high 06/14 still confused, remains on vent, with ng, running nepro, on pressors 06/15 icu, febrile, non verbal, hgb 7.1, blood pending, completed plaq 06/16 remains in the icu, nonverbal, plan for hd tomorrow, ernesto rn 06/17 in icu, on pressor, nonverbal, on abx, no bleeding 06/19 no bleeding, nonverbal in icu, hgb is 7.7 06/20 on zosyn, tube feeds, vent, labs noted, in icu, nv 06/21 gettng hd as per renal, in icu, nv, no bleeding, tfs 06/22 icu, cxr with slight improvement, cooling blanket, weaning today 06/23 wewaning, in icu, on vent, abx, and pressors as needed, labs noted 06/24 failed weaning, off abx, completed plaquenil, hgb 8.1 06/26 icu, weaning for this am, afebrile, hgb 8 06/27 in icu, remains comotose, weaning started on peep, no night sweats 06/28 weaning today, off abx, restraints, no distress, h/h stable 06/29 covid 19+, failed weaning, no blood transfusion needed 06/30 icu, on vent, labs reviewed, no distress 07/01 in icu, may need trach, remains on hd per renal, labs noted 07/02 s/p right fem cath, failed wean, no new orders, h/h stable 07/03 is somewhat more responsive, on abx, no bleeding, weaning and HD today 07/04 hd as per renal, weaning off vent, no bleeding today 07/05 obtunded, no bleding overnight, with hd for tomorrow noted, vanc 07/08 no events, remains with trach/vent, ernesto Rn, no bleeding, cbc is noted 07/09 no overnight events, peg for friday pending consent 07/10 off pressors, vent, restraints, labs reviewed 07/11 no acute events is on pressors, intubated, agitated still 07/12 is resting comfortably, no bleeding, emds reviewed and noted 07/13 icu, no events, trach, cxr reviewed, 07/14 is onv ent, tachypneic and tachycardic, labs noted 07/15 remains confused, intubated, ernesto Rn, no bleeding 07/17 icu, cxr improving infiltrates, levo gtt, airborne/contact isolation 07/18 is on broad spectrum abx, is on levaquin and cefepime, wbc 16 agitated 07/19 icu, levo gtt, cxr unchanged, tachy, hd thursday 07/20 sedated, safety restraints, labs reviewed Objective Objective Current Medications Medications (Trade) Dose Ordered Sig/Anthony Route PRN Reason Start Time Stop Time Status Last Admin Dose Admin Acetaminophen (Tylenol) 650 mg Q4H PRN NG For Pain 07/11/19 08:00 08/10/19 07:59 07/20/19 18:21 Albuterol Sulfate (Proventil MDI) 2 puff Q4HRT INH 06/06/19 23:00 08/30/19 18:59 07/21/19 07:40 Cefepime HCl 500 mg/Dextrose 55 ml @ 110 mls/hr Q24H IV 07/20/19 12:00 07/27/19 11:59 07/20/19 12:06 Chlorhexidine Gluconate (Michelle-Hex 2%) 1 applic DAILY@2000 TOPIC 06/07/19 20:00 09/05/19 19:59 07/20/19 20:12 Dextrose (Dextrose 50%) 25 ml Q30M PRN IV Hypoglycemia 06/20/19 19:30 09/18/19 19:29 Dextrose (Dextrose 50%) 50 ml Q30M PRN IV Hypoglycemia 06/20/19 19:30 09/18/19 19:29 Dopamine HCl/ Dextrose 250 ml @ 0 mls/hr Q24H PRN IV For hypotension 06/13/19 08:15 09/11/19 08:14 07/17/19 08:46 Enoxaparin Sodium (Lovenox) 30 mg DAILY SUBQ 06/07/19 09:00 08/27/19 08:59 07/20/19 08:15 Epoetin Aftab (Epoetin Aftab(ESRD on dialysis)) 10,000 unit FRI-FRI-FRI SUBQ 06/07/19 21:00 08/31/19 20:59 07/19/19 21:00 Fentanyl Citrate 250 ml @ 0 mls/hr Q24H IV 07/19/19 14:06 10/17/19 14:05 07/20/19 15:35 Haloperidol Lactate 5 mg/ Dextrose 56 ml @ 224 mls/hr Q6H PRN IVPB Agitation 07/11/19 15:00 08/25/19 14:59 07/15/19 02:36 Hydralazine HCl (Apresoline) 10 mg Q4H PRN IV Blood pressure over 160 systol 06/07/19 10:15 09/05/19 10:14 Insulin Aspart (NovoLOG) EVERY 6 HOURS SUBQ 06/21/19 00:00 09/19/19 00:00 07/21/19 05:46 Levofloxacin (Levaquin) 500 mg EVERY OTHER DAY GT 07/21/19 09:00 07/28/19 08:59 Midodrine (Pro-Amatine) 10 mg Q8HR ORAL 07/17/19 14:00 10/15/19 10:29 07/21/19 05:27 Norepinephrine Bitartrate 16 mg/ Dextrose 500 ml @ 0 mls/hr Q24H IV 07/20/19 22:00 08/19/19 21:59 07/20/19 23:30 Sevelamer Carbonate (Renvela) 2,400 mg Q6HR NG 07/14/19 12:00 10/12/19 13:59 07/21/19 05:27 Vancomycin HCl (Vanco pharmacy to dose) 1 ea DAILY PRN MISC Per rx protocol 07/20/19 10:45 08/19/19 10:44 Last 24 Hour Vital Signs Date Time Temp Pulse Resp B/P (MAP) Pulse Ox O2 Delivery O2 Flow Rate FiO2 07/21/19 07:00 114/68 07/21/19 07:00 26 114/68 Mechanical Ventilator 50 07/21/19 07:00 74 26 114/68 (83) 100 07/21/19 06:30 74 26 95/58 (70) 100 07/21/19 06:00 77 26 122/69 (86) 100 07/21/19 06:00 122/69 07/21/19 06:00 26 122/69 Mechanical Ventilator 26.0 50 07/21/19 05:30 74 28 144/73 (96) 100 07/21/19 05:00 126/70 07/21/19 05:00 26 126/70 Mechanical Ventilator 50 07/21/19 05:00 79 26 126/70 (88) 100 07/21/19 04:30 81 26 104/64 (77) 100 07/21/19 04:00 Mechanical Ventilator 07/21/19 04:00 50 07/21/19 04:00 117/85 07/21/19 04:00 24 117/85 Mechanical Ventilator 50 07/21/19 04:00 77 07/21/19 04:00 98.0 91 18 117/85 (96) 95 07/21/19 03:30 78 26 106/71 (83) 100 07/21/19 03:08 79 26 100 Mechanical Ventilator 50 82 27 50 07/21/19 03:00 131/70 07/21/19 03:00 26 131/70 Mechanical Ventilator 50 07/21/19 03:00 84 25 131/70 (90) 100 07/21/19 02:30 82 26 134/81 (98) 100 07/21/19 02:00 84 26 133/77 (95) 100 07/21/19 02:00 133/77 07/21/19 02:00 26 133/77 Mechanical Ventilator 50 07/21/19 01:30 87 26 140/82 (101) 100 07/21/19 01:00 93 28 148/83 (104) 07/21/19 01:00 154/81 07/21/19 01:00 26 154/81 Mechanical Ventilator 50 07/21/19 00:30 99 26 143/75 (97) 90 07/21/19 00:00 Mechanical Ventilator 07/21/19 00:00 50 07/21/19 00:00 100.0 95 25 157/84 (108) 100 07/21/19 00:00 157/84 07/21/19 00:00 26 157/84 Mechanical Ventilator 50 07/21/19 00:00 96 07/20/19 23:54 88 26 100 Mechanical Ventilator 50 88 26 50 07/20/19 23:30 84 26 126/74 (91) 100 07/20/19 23:30 126/74 07/20/19 23:00 84 63 131/74 (93) 07/20/19 23:00 26 156/78 Mechanical Ventilator 50 07/20/19 23:00 156/78 07/20/19 22:30 86 26 115/71 (86) 100 07/20/19 22:00 26 114/68 Mechanical Ventilator 50 07/20/19 22:00 114/68 07/20/19 22:00 91 26 114/68 (83) 100 07/20/19 21:30 98 26 106/62 (77) 100 07/20/19 21:00 26 100/60 Mechanical Ventilator 50 07/20/19 21:00 100/60 07/20/19 21:00 93 27 100/60 (73) 100 07/20/19 20:30 101 27 98/60 (73) 100 07/20/19 20:16 99 29 100 Mechanical Ventilator 50 100 29 50 07/20/19 20:00 102 07/20/19 20:00 50 07/20/19 20:00 Mechanical Ventilator 07/20/19 20:00 26 120/71 Mechanical Ventilator 50 07/20/19 20:00 120/71 07/20/19 20:00 102.0 102 27 120/71 (87) 100 07/20/19 19:30 104 28 113/66 (82) 100 07/20/19 19:02 106/59 07/20/19 19:00 33 97/60 Mechanical Ventilator 50 07/20/19 19:00 106 28 97/60 (72) 100 07/20/19 19:00 97/60 07/20/19 18:51 100.8 07/20/19 18:30 115 31 109/67 (81) 100 07/20/19 18:15 104 26 118/72 (87) 100 07/20/19 18:00 33 118/72 Mechanical Ventilator 50 07/20/19 18:00 118/72 07/20/19 18:00 100.8 108 33 108/64 (79) 100 07/20/19 17:45 108 33 106/72 (83) 100 07/20/19 17:30 110 22 105/72 (83) 100 07/20/19 17:15 112 42 110/71 (84) 99 07/20/19 17:00 34 110/71 Mechanical Ventilator 50 07/20/19 17:00 110/71 07/20/19 17:00 105 33 82/61 (68) 100 07/20/19 16:45 105 33 87/63 (71) 100 07/20/19 16:30 105 33 97/66 (76) 100 07/20/19 16:15 108 33 94/63 (73) 100 07/20/19 16:00 50 07/20/19 16:00 33 94/63 Mechanical Ventilator 50 07/20/19 16:00 94/63 07/20/19 16:00 102.0 112 29 93/66 (75) 100 07/20/19 16:00 112 07/20/19 16:00 Mechanical Ventilator 07/20/19 15:45 114 33 89/54 (66) 100 07/20/19 15:35 30 79/53 Mechanical Ventilator 50 07/20/19 15:30 121 33 79/53 (62) 100 07/20/19 15:03 120 33 100 Mechanical Ventilator 50 117 30 50 07/20/19 15:00 34 99/60 Mechanical Ventilator 50 07/20/19 15:00 99/60 07/20/19 15:00 117 35 99/60 (73) 100 07/20/19 14:30 122 35 80/61 (67) 100 07/20/19 14:17 67/48 07/20/19 14:00 122 35 90/61 (71) 100 07/20/19 14:00 35 80/61 Mechanical Ventilator 50 07/20/19 14:00 80/61 07/20/19 13:30 144 39 75/50 (58) 100 07/20/19 13:00 140 34 76/55 (62) 100 07/20/19 13:00 34 76/55 Mechanical Ventilator 60 07/20/19 13:00 76/55 07/20/19 12:30 125 29 108/77 (87) 100 07/20/19 12:00 127 07/20/19 12:00 32 127/78 Mechanical Ventilator 60 07/20/19 12:00 127/78 07/20/19 12:00 50 07/20/19 12:00 127 32 127/78 (94) 100 07/20/19 12:00 Mechanical Ventilator 07/20/19 11:30 119 29 124/79 (94) 100 07/20/19 11:11 118 28 100 Mechanical Ventilator 50 119 30 50 07/20/19 11:00 31 115/79 Mechanical Ventilator 60 07/20/19 11:00 115/79 07/20/19 11:00 102.8 119 30 115/79 (91) 100 07/20/19 10:41 96/59 07/20/19 10:30 132 32 96/59 (71) 100 07/20/19 10:00 33 75/51 Mechanical Ventilator 60 07/20/19 10:00 75/51 07/20/19 10:00 128 30 75/51 (59) 100 07/20/19 09:30 128 31 93/67 (76) 100 07/20/19 09:00 129 31 99/63 (75) 100 07/20/19 09:00 33 99/63 Mechanical Ventilator 60 07/20/19 09:00 99/63 07/20/19 08:30 134 35 113/69 (84) 100 07/20/19 08:00 100.5 132 35 111/74 (86) 100 07/20/19 08:00 131 07/20/19 08:00 33 111/74 Mechanical Ventilator 60 07/20/19 08:00 111/74 07/20/19 08:00 60 07/20/19 08:00 Mechanical Ventilator 07/20/19 07:30 135 35 97/67 (77) 100 07/20/19 07:27 134 34 100 Mechanical Ventilator 60 134 35 60 07/20/19 07:00 131 35 114/80 (91) 100 07/20/19 07:00 35 114/80 Mechanical Ventilator 60 07/20/19 07:00 114/80 07/20/19 06:00 31 108/63 Mechanical Ventilator 60 07/20/19 06:00 108/63 07/20/19 06:00 127 31 108/63 (78) 100 07/20/19 05:30 108/81 07/20/19 05:30 128 33 99/76 (84) 100 07/20/19 05:00 31 108/81 Mechanical Ventilator 60 07/20/19 05:00 108/81 07/20/19 05:00 125 31 108/81 (90) 100 07/20/19 04:30 126 32 99/67 (78) 100 07/20/19 04:00 60 07/20/19 04:00 Mechanical Ventilator 07/20/19 04:00 99.8 131 33 95/67 (76) 100 07/20/19 04:00 33 95/67 Mechanical Ventilator 60 07/20/19 04:00 95/67 07/20/19 04:00 135 07/20/19 03:55 135 37 100 Mechanical Ventilator 60 135 37 60 07/20/19 03:30 133 37 137/76 (96) 100 07/20/19 03:00 41 109/71 Mechanical Ventilator 60 07/20/19 03:00 109/71 07/20/19 03:00 133 41 109/71 (84) 100 07/20/19 02:30 129 36 110/73 (85) 100 07/20/19 02:00 38 98/70 Mechanical Ventilator 60 07/20/19 02:00 98/70 07/20/19 02:00 136 38 98/70 (79) 100 07/20/19 01:30 99.7 152 66 122/75 (91) 100 6/9/20 01:15 131/89 07/20/19 01:00 60 157/140 Mechanical Ventilator 60 07/20/19 01:00 157/140 07/20/19 01:00 143 60 157/140 (146) 100 07/20/19 00:30 135 17 130/88 (102) 100 07/20/19 00:00 125 07/20/19 00:00 Mechanical Ventilator 07/20/19 00:00 30 111/73 Mechanical Ventilator 60 07/20/19 00:00 111/73 07/20/19 00:00 103.5 134 30 111/73 (86) 100 07/20/19 00:00 60 07/19/19 23:30 133 32 118/78 (91) 100 07/19/19 23:14 135 31 100 Mechanical Ventilator 60 138 31 60 07/19/19 23:00 32 127/77 Mechanical Ventilator 60 07/19/19 23:00 127/77 07/19/19 23:00 138 32 127/77 (94) 100 07/19/19 22:30 134 30 107/88 (94) 100 07/19/19 22:00 30 95/65 Mechanical Ventilator 60 07/19/19 22:00 95/95 07/19/19 22:00 133 30 95/65 (75) 100 07/19/19 21:30 134 30 102/81 (88) 100 07/19/19 21:00 139 30 99/60 (73) 99 07/19/19 21:00 30 99/60 Mechanical Ventilator 60 07/19/19 21:00 99/60 07/19/19 20:45 97/63 07/19/19 20:45 144 36 97/63 (74) 100 07/19/19 20:30 150 56 93/66 (75) 93 07/19/19 20:00 Mechanical Ventilator 07/19/19 20:00 60 07/19/19 20:00 101.2 152 45 103/84 (90) 94 07/19/19 20:00 45 103/84 Mechanical Ventilator 60 07/19/19 20:00 103/84 07/19/19 20:00 137 07/19/19 19:30 137 33 92/69 (77) 100 07/19/19 19:22 123 34 98 Mechanical Ventilator 60 126 47 60 07/19/19 19:00 145 31 125/74 (91) 100 07/19/19 18:30 143 35 114/89 (97) 100 07/19/19 18:00 128 30 135/90 (105) 100 07/19/19 18:00 135/90 07/19/19 17:30 128 29 103/72 (82) 100 07/19/19 17:00 72/34 07/19/19 17:00 126 32 94/67 (76) 100 07/19/19 16:45 96/67 07/19/19 16:40 88/64 07/19/19 16:35 86/58 07/19/19 16:30 126 32 93/62 (72) 100 07/19/19 16:30 88/61 07/19/19 16:25 85/62 07/19/19 16:20 71/55 07/19/19 16:15 57/39 07/19/19 16:10 71/43 07/19/19 16:05 68/42 07/19/19 16:02 136 07/19/19 16:00 100 07/19/19 16:00 72/34 07/19/19 16:00 98.0 137 29 72/34 (47) 98 07/19/19 16:00 Mechanical Ventilator 07/19/19 15:45 65/43 07/19/19 15:30 141 43 111/84 (93) 98 07/19/19 15:30 53/42 07/19/19 15:10 142 47 98 Mechanical Ventilator 100 142 47 30 07/19/19 15:00 141 43 128/85 (99) 98 07/19/19 14:43 45 91/61 Mechanical Ventilator 100 07/19/19 14:30 142 42 91/61 (71) 97 07/19/19 14:00 141 41 90/62 (71) 94 07/19/19 13:30 139 35 122/78 (93) 100 07/19/19 13:00 140 34 107/80 (89) 100 07/19/19 12:30 142 36 101/66 (78) 100 07/19/19 12:30 140 34 116/77 (90) 100 07/19/19 12:07 100/74 07/19/19 12:00 121 07/19/19 12:00 30 07/19/19 12:00 100.5 142 36 100/74 (83) 100 07/19/19 12:00 Mechanical Ventilator 07/19/19 12:00 139 36 115/93 (100) 100 07/19/19 11:30 142 37 101/73 (82) 100 07/19/19 11:30 139 37 110/72 (85) 100 07/19/19 11:15 132 32 100 Mechanical Ventilator 30 132 32 30 07/19/19 11:00 136 35 100/69 (79) 100 07/19/19 11:00 140 35 94/73 (80) 100 07/19/19 10:30 135 34 97/83 (88) 100 07/19/19 10:30 132 35 91/76 (81) 100 07/19/19 10:00 128 36 97/75 (82) 100 07/19/19 09:30 131 41 107/77 (87) 100 07/19/19 09:00 137 31 103/80 (88) 100 07/19/19 08:30 143 43 109/75 (86) 100 Intake and Output 07/20/19 07/21/19 19:00 07:00 Intake Total 1511.658 ml 1244.055 ml Balance 1511.658 ml 1244.055 ml IV Total 871.658 ml 624.055 ml Tube Feeding 420 ml 420 ml Other 220 ml 200 ml # Bowel Movements 3 Labs Test 07/19/19 14:27 07/20/19 03:40 07/21/19 04:00 Arterial Blood pH 7.343 (7.350-7.450) Arterial Blood Partial Pressure CO2 37.9 mmHg (35.0-45.0) Arterial Blood Partial Pressure O2 444.7 mmHg (75.0-100.0) Arterial Blood HCO3 20.1 mmol/L (22.0-26.0) Arterial Blood Oxygen Saturation 99.8 % (95-100) Arterial Blood Base Excess -5.1 (-2-2) Kosta Test Positive White Blood Count 22.2 K/UL (4.8-10.8) Red Blood Count 4.13 M/UL (4.70-6.10) Hemoglobin 11.9 G/DL (14.2-18.0) Hematocrit 36.5 % (42.0-52.0) Mean Corpuscular Volume 88 FL (80-99) Mean Corpuscular Hemoglobin 28.9 PG (27.0-31.0) Mean Corpuscular Hemoglobin Concent 32.6 G/DL (32.0-36.0) Red Cell Distribution Width 16.1 % (11.6-14.8) Platelet Count 544 K/UL (150-450) Mean Platelet Volume 6.2 FL (6.5-10.1) Neutrophils (%) (Auto) % (45.0-75.0) Lymphocytes (%) (Auto) % (20.0-45.0) Monocytes (%) (Auto) % (1.0-10.0) Eosinophils (%) (Auto) % (0.0-3.0) Basophils (%) (Auto) % (0.0-2.0) Differential Total Cells Counted 100 Neutrophils % (Manual) 89 % (45-75) Lymphocytes % (Manual) 8 % (20-45) Monocytes % (Manual) 3 % (1-10) Eosinophils % (Manual) 0 % (0-3) Basophils % (Manual) 0 % (0-2) Band Neutrophils 0 % (0-8) Platelet Estimate Increased Platelet Morphology Normal Polychromasia 1+ Hypochromasia 1+ Anisocytosis 1+ Sodium Level 136 MMOL/L (136-145) Potassium Level 4.2 MMOL/L (3.5-5.1) Chloride Level 94 MMOL/L (98-107) Carbon Dioxide Level 21 MMOL/L (21-32) Anion Gap 21 mmol/L (5-15) Blood Urea Nitrogen 85 mg/dL (7-18) Creatinine 11.0 MG/DL (0.55-1.30) Estimat Glomerular Filtration Rate 4.7 mL/min (>60) Glucose Level 316 MG/DL (74-106) Calcium Level 9.9 MG/DL (8.5-10.1) Phosphorus Level 5.3 MG/DL (2.5-4.9) Total Bilirubin 0.5 MG/DL (0.2-1.0) Aspartate Amino Transf (AST/SGOT) 25 U/L (15-37) Alanine Aminotransferase (ALT/SGPT) 19 U/L (12-78) Alkaline Phosphatase 184 U/L (46-116) C-Reactive Protein, Quantitative 11.8 mg/dL (0.00-0.90) Total Protein 10.0 G/DL (6.4-8.2) Albumin 2.8 G/DL (3.4-5.0) Globulin 7.2 g/dL Albumin/Globulin Ratio 0.4 (1.0-2.7) Random Vancomycin Level 25.5 ug/mL Height (Feet): 6 Height (Inches): 1.00 Weight (Pounds): 188 Objective General: nv, confused, sedated Heent: bilateral eye normal inspection, bilateral eye PERRL ++Ng Respiratory: normal breath sounds, no respiratory distress, intubated/vent +++ trach+++ Cardiovascular: regular rate, rhythm, no edema Gastrointestinal: normal inspection, soft, non-distended, peg+ Rectal: deferred Musculoskeletal: normal range of motion, non-tender, R fem cath++ Neurologic: alert, motor strength/tone normal, sensory intact, responsive, speech normal Skin: Decubitus/Ulcer - See RN skin exam. : jamaal+ Greg Cabral MD Jul 21, 2019 08:05
[2019-07-21] MEDS: Enoxaparin 30mg Inj SUBQ SCH (08:15)
[2019-07-21] MEDS: Norepinephrine Bitartrate 16 MG in D5W 500ml 484 ML IV SCH (08:15)
--- NOTE | 2019-07-21 08:50 | Pulmonolgy Critical Care Note ---
Critical Care - Asmt/Plan Assessment/Plan: Pulmonary CCM Progress Note HPI: Patient is a 68 year old man, [facility] resident, admitted c/o shortness of breath, cough, noted to have Covid 19 Pneumonia, Respiratory Failure Remains on Ventilator, CXR infiltrates stable Septic Shock, remains on pressors - Mitodrine and Levophed Preserved EF FIO2 50%, P5, adequate O2 sats, remains on ACVC, s/p Tracheostomy previously, sp PEG ID following, on broad spectrum AB Past Medical History: COPD, CKD, Hypertension, Anemia Allergies: No Known Allergies Improving Pulmonary Status on HD Physical Exam Vital Signs Noted Stable on ventilator Chronically ill appearing HEENT: moist mm, trach Chest: Occasional rhonchi, BS equal bilaterally Heart: HS1, HS2, RRR Abdomen: SNTND G tube Extremities: No edema, 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, 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 Impression: COVID-19 virus infection Pneumonia Respiratory failure on ventilator, wean as tolerated once off pressors CKD - on HD Hypotension on pressors previously Cardiomegaly Lymphopenia Elevated AST COPD Chronic Kidney Disease - HD H/o Hypertension Worsening anemia Plan: SP Tracheostomy / G tube Antibiotics per ID HD Pressors PRN ACVC - wean as tolerated once HD more stable [employer]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 Monitor cultures/viral studies PPX Hemodialysis per Renal Psychiatry following Laboratory Tests Noted: CXR: Hypoventilatory exam, interstitial changes, cardiomegaly, improving infiltrates Subjective ROS Limited/Unobtainable: No Constitutional: Denies: fever Respiratory: Reports: dry cough, shortness of breath Gastrointestinal/Abdominal: Reports: diarrhea, other - colace was stopped Psychiatric: Reports: other - refuses labs Allergies: Coded Allergies: No Known Allergies (Unverified , 05/28/19) All Systems: reviewed and negative except above Labs noted Critical Care - Objective Last 24 Hour Vital Signs Date Time Temp Pulse Resp B/P (MAP) Pulse Ox O2 Delivery O2 Flow Rate FiO2 07/21/19 08:15 137/77 07/21/19 07:18 75 26 100 Mechanical Ventilator 50 78 28 50 07/21/19 07:00 114/68 07/21/19 07:00 26 114/68 Mechanical Ventilator 50 07/21/19 07:00 74 26 114/68 (83) 100 07/21/19 06:30 74 26 95/58 (70) 100 07/21/19 06:00 77 26 122/69 (86) 100 07/21/19 06:00 122/69 07/21/19 06:00 26 122/69 Mechanical Ventilator 26.0 50 07/21/19 05:30 74 28 144/73 (96) 100 07/21/19 05:00 126/70 07/21/19 05:00 26 126/70 Mechanical Ventilator 50 07/21/19 05:00 79 26 126/70 (88) 100 07/21/19 04:30 81 26 104/64 (77) 100 07/21/19 04:00 Mechanical Ventilator 07/21/19 04:00 50 07/21/19 04:00 117/85 07/21/19 04:00 24 117/85 Mechanical Ventilator 50 07/21/19 04:00 77 07/21/19 04:00 98.0 91 18 117/85 (96) 95 07/21/19 03:30 78 26 106/71 (83) 100 07/21/19 03:08 79 26 100 Mechanical Ventilator 50 82 27 50 07/21/19 03:00 131/70 07/21/19 03:00 26 131/70 Mechanical Ventilator 50 07/21/19 03:00 84 25 131/70 (90) 100 07/21/19 02:30 82 26 134/81 (98) 100 07/21/19 02:00 84 26 133/77 (95) 100 07/21/19 02:00 133/77 07/21/19 02:00 26 133/77 Mechanical Ventilator 50 07/21/19 01:30 87 26 140/82 (101) 100 07/21/19 01:00 93 28 148/83 (104) 07/21/19 01:00 154/81 07/21/19 01:00 26 154/81 Mechanical Ventilator 50 07/21/19 00:30 99 26 143/75 (97) 90 07/21/19 00:00 Mechanical Ventilator 07/21/19 00:00 50 07/21/19 00:00 100.0 95 25 157/84 (108) 100 07/21/19 00:00 157/84 07/21/19 00:00 26 157/84 Mechanical Ventilator 50 07/21/19 00:00 96 07/20/19 23:54 88 26 100 Mechanical Ventilator 50 88 26 50 07/20/19 23:30 84 26 126/74 (91) 100 07/20/19 23:30 126/74 07/20/19 23:00 84 63 131/74 (93) 07/20/19 23:00 26 156/78 Mechanical Ventilator 50 07/20/19 23:00 156/78 07/20/19 22:30 86 26 115/71 (86) 100 07/20/19 22:00 26 114/68 Mechanical Ventilator 50 07/20/19 22:00 114/68 07/20/19 22:00 91 26 114/68 (83) 100 07/20/19 21:30 98 26 106/62 (77) 100 07/20/19 21:00 26 100/60 Mechanical Ventilator 50 07/20/19 21:00 100/60 07/20/19 21:00 93 27 100/60 (73) 100 07/20/19 20:30 101 27 98/60 (73) 100 07/20/19 20:16 99 29 100 Mechanical Ventilator 50 100 29 50 07/20/19 20:00 102 07/20/19 20:00 50 07/20/19 20:00 Mechanical Ventilator 07/20/19 20:00 26 120/71 Mechanical Ventilator 50 07/20/19 20:00 120/71 07/20/19 20:00 102.0 102 27 120/71 (87) 100 07/20/19 19:30 104 28 113/66 (82) 100 07/20/19 19:02 106/59 07/20/19 19:00 33 97/60 Mechanical Ventilator 50 07/20/19 19:00 106 28 97/60 (72) 100 07/20/19 19:00 97/60 07/20/19 18:51 100.8 07/20/19 18:30 115 31 109/67 (81) 100 07/20/19 18:15 104 26 118/72 (87) 100 07/20/19 18:00 33 118/72 Mechanical Ventilator 50 07/20/19 18:00 118/72 07/20/19 18:00 100.8 108 33 108/64 (79) 100 07/20/19 17:45 108 33 106/72 (83) 100 07/20/19 17:30 110 22 105/72 (83) 100 07/20/19 17:15 112 42 110/71 (84) 99 07/20/19 17:00 34 110/71 Mechanical Ventilator 50 07/20/19 17:00 110/71 07/20/19 17:00 105 33 82/61 (68) 100 07/20/19 16:45 105 33 87/63 (71) 100 07/20/19 16:30 105 33 97/66 (76) 100 07/20/19 16:15 108 33 94/63 (73) 100 07/20/19 16:00 50 07/20/19 16:00 33 94/63 Mechanical Ventilator 50 07/20/19 16:00 94/63 07/20/19 16:00 102.0 112 29 93/66 (75) 100 07/20/19 16:00 112 07/20/19 16:00 Mechanical Ventilator 07/20/19 15:45 114 33 89/54 (66) 100 07/20/19 15:35 30 79/53 Mechanical Ventilator 50 07/20/19 15:30 121 33 79/53 (62) 100 07/20/19 15:03 120 33 100 Mechanical Ventilator 50 117 30 50 07/20/19 15:00 34 99/60 Mechanical Ventilator 50 07/20/19 15:00 99/60 07/20/19 15:00 117 35 99/60 (73) 100 07/20/19 14:30 122 35 80/61 (67) 100 07/20/19 14:17 67/48 07/20/19 14:00 122 35 90/61 (71) 100 07/20/19 14:00 35 80/61 Mechanical Ventilator 50 07/20/19 14:00 80/61 07/20/19 13:30 144 39 75/50 (58) 100 07/20/19 13:00 140 34 76/55 (62) 100 07/20/19 13:00 34 76/55 Mechanical Ventilator 60 07/20/19 13:00 76/55 07/20/19 12:30 125 29 108/77 (87) 100 07/20/19 12:00 127 07/20/19 12:00 32 127/78 Mechanical Ventilator 60 07/20/19 12:00 127/78 07/20/19 12:00 50 07/20/19 12:00 127 32 127/78 (94) 100 07/20/19 12:00 Mechanical Ventilator 07/20/19 11:30 119 29 124/79 (94) 100 07/20/19 11:11 118 28 100 Mechanical Ventilator 50 119 30 50 07/20/19 11:00 31 115/79 Mechanical Ventilator 60 07/20/19 11:00 115/79 07/20/19 11:00 102.8 119 30 115/79 (91) 100 07/20/19 10:41 96/59 07/20/19 10:30 132 32 96/59 (71) 100 07/20/19 10:00 33 75/51 Mechanical Ventilator 60 07/20/19 10:00 75/51 07/20/19 10:00 128 30 75/51 (59) 100 07/20/19 09:30 128 31 93/67 (76) 100 07/20/19 09:00 129 31 99/63 (75) 100 07/20/19 09:00 33 99/63 Mechanical Ventilator 60 07/20/19 09:00 99/63 Micro: Microbiology Date/Time Source Procedure Growth Status 07/20/19 02:00 Sputum Gram Stain Pending Resulted 07/20/19 02:00 Sputum Culture - Preliminary Staphylococcus Aureus Resulted Accucheck: 368 Critical Care - Subjective ROS Limited/Unobtainable: No Condition: critical IV Access: central FI02: 50 Vent Support Breath Rate: 26 Vent Support Mode: AC Vent Tidal Volume: 500 Sputum Amount: Small PEEP: 5.0 PIP: 44 Tube Feeding Amount: 35 I&O: Intake and Output 07/20/19 07/21/19 19:00 07:00 Intake Total 1511.658 ml 1244.055 ml Balance 1511.658 ml 1244.055 ml IV Total 871.658 ml 624.055 ml Tube Feeding 420 ml 420 ml Other 220 ml 200 ml # Bowel Movements 3 ET-Tube: 7.5 ET Position: 24 Arturo Mckeon MD Jul 21, 2019 08:50
[2019-07-21] MEDS ORDERED: Levofloxacin 500mg tab GT SCH (09:00)
--- NOTE | 2019-07-21 10:31 | Nephrology Progress Note ---
Assessment/Plan Problem List: (1) CASSANDRA (acute kidney injury) (2) Anemia in chronic kidney disease (CKD) (3) HTN (hypertension) (4) COVID-19 Assessment Acute renal failure most likely superimposed on chronic kidney disease Suspected COVID-19 virus infection Possible Pneumonia, lymphopenia, elevated AST Cardiomegaly, possible CHF COPD Hypertension Anemia, most likely related to chronic kidney disease Plan July 20: Patient was dialyzed yesterday. Could not ultrafiltrate much due to low blood pressure. Discussed with SHANIQUE Dick today. No labs drawn today. Continue per consultants. July 19: Due for dialysis today. Discussed with SHANIQUE Dick. Continue per consultants. July 18: Dialyzed July 16. Will order dialysis tomorrow July 19. Continues to be on ventilator through trach. No labs done today. Continue per consultants. July 17: Dialyzed yesterday. Stable from renal standpoint of view. Remains full code. Status post trach on vent. Status post PEG. Continue per consultants. July 16: Dialysis today. Will resume Midodrin to prevent hypotension. Patient remains full code. July 15: Dialyzed yesterday, due for dialysis tomorrow. Labs and medication list reviewed. Continue per consultants. Patient remains full code. COVID-19 detected again. July 14: Patient currently on dialysis. This is continuation of dialysis from yesterday as yesterday's dialysis was cut short due to catheter malfunction. Labs and medication reviewed. Continue per consultants. July 13: Patient currently on hemodialysis. The dialysis catheter which is a intrajugular Kamlesh has poor flow. Will try TPA. Continue per consultants. July 12: Due for PEG today. Due for dialysis tomorrow. Continue per consultants. Discussed with RN. July 11: Plan for dialysis today. Discussed with RN. Data reviewed. July 10: Plan for dialysis tomorrow July 11. Waiting for consent to proceed with PEG. Continue per consultants. Medication reviewed. Labs reviewed. Discussed with RN. July 09: Dialyzed yesterday. Labs reviewed. Medication reviewed. Next hemodialysis July 11. July 08: Patient has tracheostomy now. Connected to ventilator. Due for dialysis today. Continue per consultants. Discussed with SHANIQUE Romero. July 07: Patient is due for tracheostomy today. Patient was last dialyzed July 05. Will order dialysis for tomorrow. July 06: Patient is intubated on ventilator however the plan is to extubate today. Patient was dialysis yesterday July 05. The dialysis time was cut short due to patient's respiratory distress. Only 1 L was removed during dialysis yesterday. Today's lab reviewed. Continue per consultants. Will arrange for dialysis as needed. July 05: Patient due for dialysis today. Remains intubated. Will schedule permacath placement in a.m. blood cultures on July 04 are negative. July 04: Patient was dialyzed yesterday. Due for dialysis tomorrow. Continues to be intubated. After tomorrow's dialysis will order a permacath. July 03: Dialysis is about to be started now Continues to be intubated Will plan to remove the femoral dialysis catheter and exchanged for a new temporary catheter per ID recommendation We will check surveillance blood culture tomorrow July 02: Patient was dialyzed yesterday and due for dialysis tomorrow Stable from renal standpoint W on dialysis Continue per consultants, weaning....... etc. July 01: Dialysis today Other status unchanged June 30: Due for dialysis tomorrow Remains intubated on ventilator Labs and medication reviewed Discussed with SHANIQUE Stable from renal standpoint of view June 29: Dialyzed yesterday Due for dialysis tomorrow Stable from renal standpoint to view Keeps failing weaning process June 28: Patient due for dialysis today Stable from renal standpoint to view Continue per consultants June 27: Labs reviewed Due due for dialysis June 28 Discussed with SHANIQUE Dick Continue per consultants Remains intubated on ventilator June 26 Labs reviewed Dialyzed yesterday Started on weaning today Continue to monitor renal parameters June 25: On dialysis now Potassium supplement implemented Continue per consultants Next dialysis June 27June 15: Status unchanged Dialyzed yesterday will dialyze again tomorrow Potassium supplements given Discussed with RN June 23: Due dialysis today Status: Remains intubated on ventilator June 22: Status unchanged Dialyzed yesterday and duefordialysistomorrow Serum sodium stable today June 21 Remains intubated on ventilator Due dialysis today Emphasized high sodium bath for dialysis June 20: Remains intubated on ventilator Dialyzed June 19 next dialysis June 21 Serum sodium 128, will give 250 cc 3% saline Remains full code Discussed with RN Iron panel ordered June 19: Discussed with RN. Patient due for dialysis today. Continue pulmonary support. Remains full code. June 18: Patient dialyzed yesterday May 8 Serum sodium improved but still low Arrange for dialysis tomorrow June 19 Continue per consultants June 8: Due for dialysis today Today's lab reviewed, low serum sodium noted, Emphasized on high sodium bath to dialysis nurse Discussed with SHANIQUE Yuen June 16: Dialyzed yesterday Remains intubated Labs reviewed, serum sodium 131 Plan to dialyze tomorrow June 17 with high sodium bath Discussed with SHANIQUE Yuen June 6: Due for dialysis today Labs reviewed Discussed with RN Transfuse 1 unit of packed RBCs today for low hemoglobin of 7.1 June 5: Blood pressure well maintained Receive dialysis June 13 next hemodialysis June 15June 4: Discussed with RN in ICU Patient did not receive proper dialysis yesterday due to dialysis catheter malfunction Catheter to be adjusted today and dialyzed to be resumed today Continue per consultants Positive for COVID 28 June 2: Patient now intubated on mechanical ventilation Discussed with SHANIQUE Yuen, today June 12 Patient received dialysis yesterday June 10 next hemodialysis June 12 Blood pressure better maintained Today's labs reviewed Continue per consultants Previously patient received dialysis last evening June 05, next dialysis June 07 which was incomplete due to patient's hypotension Will start on midodrine for blood pressure support. Meanwhile continue other pressors as needed Previously Patient is doing poorly, septic, white blood cells are rising, Hypotension somewhat improved We will keep n.p.o. , NG tube for medications, and change medication to IV as needed Patient remains full code Monitor vancomycin level Previously: Patient pulled out his femoral catheter yesterday June 03 which was reinserted by Dr. Mast Patient scheduled for dialysis again June 04, which again was not done due to dialysis nurse citing catheter malfunction Meanwhile continue management per ID, pulmonary , and psych. Meanwhile white blood cell count is rising. Patient blood pressure borderline low. Will check ABG Previously May 31 : I believe patient need dialysis treatment He however needs to competency assessment if can make decisions or not I will communicate with Dr. Mulligan Previously: Per pulmonary and ID advice Adjust blood pressure medication Renal diet Anemia work-up 2D echocardiogram refused Kidney ultrasound refused Jules catheter Urine studies Per orders Subjective ROS Limited/Unobtainable: Yes Objective Objective Last 24 Hour Vital Signs Date Time Temp Pulse Resp B/P (MAP) Pulse Ox O2 Delivery O2 Flow Rate FiO2 07/21/19 10:00 103/64 07/21/19 10:00 26 103/64 Mechanical Ventilator 45 07/21/19 10:00 90 26 103/64 (77) 100 07/21/19 09:30 89 26 102/70 (81) 100 07/21/19 09:08 100 07/21/19 09:05 45 07/21/19 09:00 89 29 121/79 (93) 100 07/21/19 09:00 121/79 07/21/19 09:00 29 121/79 Mechanical Ventilator 45 07/21/19 08:30 114 27 125/79 (94) 100 07/21/19 08:15 137/77 07/21/19 08:00 Mechanical Ventilator 07/21/19 08:00 137/77 07/21/19 08:00 26 137/77 Mechanical Ventilator 50 07/21/19 08:00 97.9 89 26 137/77 (97) 100 07/21/19 08:00 89 07/21/19 08:00 50 07/21/19 07:30 75 26 121/68 (85) 100 07/21/19 07:18 75 26 100 Mechanical Ventilator 50 78 28 50 07/21/19 07:00 114/68 07/21/19 07:00 26 114/68 Mechanical Ventilator 50 07/21/19 07:00 74 26 114/68 (83) 100 07/21/19 06:30 74 26 95/58 (70) 100 07/21/19 06:00 77 26 122/69 (86) 100 07/21/19 06:00 122/69 07/21/19 06:00 26 122/69 Mechanical Ventilator 26.0 50 07/21/19 05:30 74 28 144/73 (96) 100 07/21/19 05:00 126/70 07/21/19 05:00 26 126/70 Mechanical Ventilator 50 07/21/19 05:00 79 26 126/70 (88) 100 07/21/19 04:30 81 26 104/64 (77) 100 07/21/19 04:00 Mechanical Ventilator 07/21/19 04:00 50 07/21/19 04:00 117/85 07/21/19 04:00 24 117/85 Mechanical Ventilator 50 07/21/19 04:00 77 07/21/19 04:00 98.0 91 18 117/85 (96) 95 07/21/19 03:30 78 26 106/71 (83) 100 07/21/19 03:08 79 26 100 Mechanical Ventilator 50 82 27 50 07/21/19 03:00 131/70 07/21/19 03:00 26 131/70 Mechanical Ventilator 50 07/21/19 03:00 84 25 131/70 (90) 100 07/21/19 02:30 82 26 134/81 (98) 100 07/21/19 02:00 84 26 133/77 (95) 100 07/21/19 02:00 133/77 07/21/19 02:00 26 133/77 Mechanical Ventilator 50 07/21/19 01:30 87 26 140/82 (101) 100 07/21/19 01:00 93 28 148/83 (104) 07/21/19 01:00 154/81 07/21/19 01:00 26 154/81 Mechanical Ventilator 50 07/21/19 00:30 99 26 143/75 (97) 90 07/21/19 00:00 Mechanical Ventilator 07/21/19 00:00 50 07/21/19 00:00 100.0 95 25 157/84 (108) 100 07/21/19 00:00 157/84 07/21/19 00:00 26 157/84 Mechanical Ventilator 50 07/21/19 00:00 96 07/20/19 23:54 88 26 100 Mechanical Ventilator 50 88 26 50 07/20/19 23:30 84 26 126/74 (91) 100 07/20/19 23:30 126/74 07/20/19 23:00 84 63 131/74 (93) 07/20/19 23:00 26 156/78 Mechanical Ventilator 50 07/20/19 23:00 156/78 07/20/19 22:30 86 26 115/71 (86) 100 07/20/19 22:00 26 114/68 Mechanical Ventilator 50 07/20/19 22:00 114/68 07/20/19 22:00 91 26 114/68 (83) 100 07/20/19 21:30 98 26 106/62 (77) 100 07/20/19 21:00 26 100/60 Mechanical Ventilator 50 07/20/19 21:00 100/60 07/20/19 21:00 93 27 100/60 (73) 100 07/20/19 20:30 101 27 98/60 (73) 100 07/20/19 20:16 99 29 100 Mechanical Ventilator 50 100 29 50 07/20/19 20:00 102 07/20/19 20:00 50 07/20/19 20:00 Mechanical Ventilator 07/20/19 20:00 26 120/71 Mechanical Ventilator 50 07/20/19 20:00 120/71 07/20/19 20:00 102.0 102 27 120/71 (87) 100 07/20/19 19:30 104 28 113/66 (82) 100 07/20/19 19:02 106/59 07/20/19 19:00 33 97/60 Mechanical Ventilator 50 07/20/19 19:00 106 28 97/60 (72) 100 07/20/19 19:00 97/60 07/20/19 18:51 100.8 07/20/19 18:30 115 31 109/67 (81) 100 07/20/19 18:15 104 26 118/72 (87) 100 07/20/19 18:00 33 118/72 Mechanical Ventilator 50 07/20/19 18:00 118/72 07/20/19 18:00 100.8 108 33 108/64 (79) 100 07/20/19 17:45 108 33 106/72 (83) 100 07/20/19 17:30 110 22 105/72 (83) 100 07/20/19 17:15 112 42 110/71 (84) 99 07/20/19 17:00 34 110/71 Mechanical Ventilator 50 07/20/19 17:00 110/71 07/20/19 17:00 105 33 82/61 (68) 100 07/20/19 16:45 105 33 87/63 (71) 100 07/20/19 16:30 105 33 97/66 (76) 100 07/20/19 16:15 108 33 94/63 (73) 100 07/20/19 16:00 50 07/20/19 16:00 33 94/63 Mechanical Ventilator 50 07/20/19 16:00 94/63 07/20/19 16:00 102.0 112 29 93/66 (75) 100 07/20/19 16:00 112 07/20/19 16:00 Mechanical Ventilator 07/20/19 15:45 114 33 89/54 (66) 100 07/20/19 15:35 30 79/53 Mechanical Ventilator 50 07/20/19 15:30 121 33 79/53 (62) 100 07/20/19 15:03 120 33 100 Mechanical Ventilator 50 117 30 50 07/20/19 15:00 34 99/60 Mechanical Ventilator 50 07/20/19 15:00 99/60 07/20/19 15:00 117 35 99/60 (73) 100 07/20/19 14:30 122 35 80/61 (67) 100 07/20/19 14:17 67/48 07/20/19 14:00 122 35 90/61 (71) 100 07/20/19 14:00 35 80/61 Mechanical Ventilator 50 07/20/19 14:00 80/61 07/20/19 13:30 144 39 75/50 (58) 100 07/20/19 13:00 140 34 76/55 (62) 100 07/20/19 13:00 34 76/55 Mechanical Ventilator 60 07/20/19 13:00 76/55 07/20/19 12:30 125 29 108/77 (87) 100 07/20/19 12:00 127 07/20/19 12:00 32 127/78 Mechanical Ventilator 60 07/20/19 12:00 127/78 07/20/19 12:00 50 07/20/19 12:00 127 32 127/78 (94) 100 07/20/19 12:00 Mechanical Ventilator 07/20/19 11:30 119 29 124/79 (94) 100 07/20/19 11:11 118 28 100 Mechanical Ventilator 50 119 30 50 07/20/19 11:00 31 115/79 Mechanical Ventilator 60 07/20/19 11:00 115/79 07/20/19 11:00 102.8 119 30 115/79 (91) 100 07/20/19 10:41 96/59 07/20/19 10:30 132 32 96/59 (71) 100 Intake and Output 07/20/19 07/21/19 19:00 07:00 Intake Total 1511.658 ml 1244.055 ml Balance 1511.658 ml 1244.055 ml IV Total 871.658 ml 624.055 ml Tube Feeding 420 ml 420 ml Other 220 ml 200 ml # Bowel Movements 3 Laboratory Tests 07/21/19 04:00: Random Vancomycin Level 25.5 No chemistries done today Height (Feet): 6 Height (Inches): 1.00 Weight (Pounds): 188 General Appearance: no apparent distress EENT: other Cardiovascular: tachycardia Respiratory/Chest: decreased breath sounds Abdomen: other - PEG in place Objective No change Mic Cole MD Jul 21, 2019 10:31
--- NOTE | 2019-07-21 10:41 | General Progress Note ---
Assessment/Plan Status: progressing, unchanged Assessment/Plan: 1. Diabetes. 2. Hypertension. 3. Coronary artery disease. 4. COPD. 5. Psychiatric disorder with schizophrenia. 6. History of hepatitis C. 7. HLP. 8. Chronic kidney disease, now with acute renal failure. 9. Anemia. 10. Hypothyroidism. 11. Spinal stenosis. 12. Constipation. 13. GERD. 14. COVID positive HD per nephrology fu labs icu care s/p PEG GTF failed weaning monitor for residuals Subjective ROS Limited/Unobtainable: No Allergies: Coded Allergies: No Known Allergies (Unverified , 05/28/19) Objective Last 24 Hour Vital Signs Date Time Temp Pulse Resp B/P (MAP) Pulse Ox O2 Delivery O2 Flow Rate FiO2 07/21/19 10:00 103/64 07/21/19 10:00 26 103/64 Mechanical Ventilator 45 07/21/19 10:00 90 26 103/64 (77) 100 07/21/19 09:30 89 26 102/70 (81) 100 07/21/19 09:08 100 07/21/19 09:05 45 07/21/19 09:00 89 29 121/79 (93) 100 07/21/19 09:00 121/79 07/21/19 09:00 29 121/79 Mechanical Ventilator 45 07/21/19 08:30 114 27 125/79 (94) 100 07/21/19 08:15 137/77 07/21/19 08:00 Mechanical Ventilator 07/21/19 08:00 137/77 07/21/19 08:00 26 137/77 Mechanical Ventilator 50 07/21/19 08:00 97.9 89 26 137/77 (97) 100 07/21/19 08:00 89 07/21/19 08:00 50 07/21/19 07:30 75 26 121/68 (85) 100 07/21/19 07:18 75 26 100 Mechanical Ventilator 50 78 28 50 07/21/19 07:00 114/68 07/21/19 07:00 26 114/68 Mechanical Ventilator 50 07/21/19 07:00 74 26 114/68 (83) 100 07/21/19 06:30 74 26 95/58 (70) 100 07/21/19 06:00 77 26 122/69 (86) 100 07/21/19 06:00 122/69 07/21/19 06:00 26 122/69 Mechanical Ventilator 26.0 50 07/21/19 05:30 74 28 144/73 (96) 100 07/21/19 05:00 126/70 07/21/19 05:00 26 126/70 Mechanical Ventilator 50 07/21/19 05:00 79 26 126/70 (88) 100 07/21/19 04:30 81 26 104/64 (77) 100 07/21/19 04:00 Mechanical Ventilator 07/21/19 04:00 50 07/21/19 04:00 117/85 07/21/19 04:00 24 117/85 Mechanical Ventilator 50 07/21/19 04:00 77 07/21/19 04:00 98.0 91 18 117/85 (96) 95 07/21/19 03:30 78 26 106/71 (83) 100 07/21/19 03:08 79 26 100 Mechanical Ventilator 50 82 27 50 07/21/19 03:00 131/70 07/21/19 03:00 26 131/70 Mechanical Ventilator 50 07/21/19 03:00 84 25 131/70 (90) 100 07/21/19 02:30 82 26 134/81 (98) 100 07/21/19 02:00 84 26 133/77 (95) 100 07/21/19 02:00 133/77 07/21/19 02:00 26 133/77 Mechanical Ventilator 50 07/21/19 01:30 87 26 140/82 (101) 100 07/21/19 01:00 93 28 148/83 (104) 07/21/19 01:00 154/81 07/21/19 01:00 26 154/81 Mechanical Ventilator 50 07/21/19 00:30 99 26 143/75 (97) 90 07/21/19 00:00 Mechanical Ventilator 07/21/19 00:00 50 07/21/19 00:00 100.0 95 25 157/84 (108) 100 07/21/19 00:00 157/84 07/21/19 00:00 26 157/84 Mechanical Ventilator 50 07/21/19 00:00 96 07/20/19 23:54 88 26 100 Mechanical Ventilator 50 88 26 50 07/20/19 23:30 84 26 126/74 (91) 100 6/9/20 23:30 126/74 07/20/19 23:00 84 63 131/74 (93) 07/20/19 23:00 26 156/78 Mechanical Ventilator 50 07/20/19 23:00 156/78 07/20/19 22:30 86 26 115/71 (86) 100 07/20/19 22:00 26 114/68 Mechanical Ventilator 50 07/20/19 22:00 114/68 07/20/19 22:00 91 26 114/68 (83) 100 07/20/19 21:30 98 26 106/62 (77) 100 07/20/19 21:00 26 100/60 Mechanical Ventilator 50 07/20/19 21:00 100/60 07/20/19 21:00 93 27 100/60 (73) 100 07/20/19 20:30 101 27 98/60 (73) 100 07/20/19 20:16 99 29 100 Mechanical Ventilator 50 100 29 50 07/20/19 20:00 102 07/20/19 20:00 50 07/20/19 20:00 Mechanical Ventilator 07/20/19 20:00 26 120/71 Mechanical Ventilator 50 07/20/19 20:00 120/71 07/20/19 20:00 102.0 102 27 120/71 (87) 100 07/20/19 19:30 104 28 113/66 (82) 100 07/20/19 19:02 106/59 07/20/19 19:00 33 97/60 Mechanical Ventilator 50 07/20/19 19:00 106 28 97/60 (72) 100 07/20/19 19:00 97/60 07/20/19 18:51 100.8 07/20/19 18:30 115 31 109/67 (81) 100 07/20/19 18:15 104 26 118/72 (87) 100 07/20/19 18:00 33 118/72 Mechanical Ventilator 50 07/20/19 18:00 118/72 07/20/19 18:00 100.8 108 33 108/64 (79) 100 07/20/19 17:45 108 33 106/72 (83) 100 07/20/19 17:30 110 22 105/72 (83) 100 07/20/19 17:15 112 42 110/71 (84) 99 07/20/19 17:00 34 110/71 Mechanical Ventilator 50 07/20/19 17:00 110/71 07/20/19 17:00 105 33 82/61 (68) 100 07/20/19 16:45 105 33 87/63 (71) 100 07/20/19 16:30 105 33 97/66 (76) 100 07/20/19 16:15 108 33 94/63 (73) 100 07/20/19 16:00 50 07/20/19 16:00 33 94/63 Mechanical Ventilator 50 07/20/19 16:00 94/63 07/20/19 16:00 102.0 112 29 93/66 (75) 100 07/20/19 16:00 112 07/20/19 16:00 Mechanical Ventilator 07/20/19 15:45 114 33 89/54 (66) 100 07/20/19 15:35 30 79/53 Mechanical Ventilator 50 07/20/19 15:30 121 33 79/53 (62) 100 07/20/19 15:03 120 33 100 Mechanical Ventilator 50 117 30 50 07/20/19 15:00 34 99/60 Mechanical Ventilator 50 07/20/19 15:00 99/60 07/20/19 15:00 117 35 99/60 (73) 100 07/20/19 14:30 122 35 80/61 (67) 100 07/20/19 14:17 67/48 07/20/19 14:00 122 35 90/61 (71) 100 07/20/19 14:00 35 80/61 Mechanical Ventilator 50 07/20/19 14:00 80/61 07/20/19 13:30 144 39 75/50 (58) 100 07/20/19 13:00 140 34 76/55 (62) 100 07/20/19 13:00 34 76/55 Mechanical Ventilator 60 07/20/19 13:00 76/55 07/20/19 12:30 125 29 108/77 (87) 100 07/20/19 12:00 127 07/20/19 12:00 32 127/78 Mechanical Ventilator 60 07/20/19 12:00 127/78 07/20/19 12:00 50 07/20/19 12:00 127 32 127/78 (94) 100 07/20/19 12:00 Mechanical Ventilator 07/20/19 11:30 119 29 124/79 (94) 100 07/20/19 11:11 118 28 100 Mechanical Ventilator 50 119 30 50 07/20/19 11:00 31 115/79 Mechanical Ventilator 60 07/20/19 11:00 115/79 07/20/19 11:00 102.8 119 30 115/79 (91) 100 07/20/19 10:41 96/59 Intake and Output 07/20/19 07/21/19 19:00 07:00 Intake Total 1511.658 ml 1244.055 ml Balance 1511.658 ml 1244.055 ml IV Total 871.658 ml 624.055 ml Tube Feeding 420 ml 420 ml Other 220 ml 200 ml # Bowel Movements 3 Laboratory Tests 07/21/19 04:00: Random Vancomycin Level 25.5 Height (Feet): 6 Height (Inches): 1.00 Weight (Pounds): 188 General Appearance: no apparent distress EENT: normal ENT inspection Neck: supple Cardiovascular: normal rate Respiratory/Chest: decreased breath sounds Abdomen: normal bowel sounds, non tender, soft Marito Ramires MD Jul 21, 2019 10:41
--- NOTE | 2019-07-21 12:00 | Infectious Diseases Prog Note ---
Assessment/Plan Assessment/Plan IMPRESSION: 1. COVID19 pneumonia Positive: 05/27, 05/31 , 06/05, 06/09 ,06/17, 06/19, 06/23, 06/27, 07/03, 07/15 2. MRSA carrier. 3. Chronic kidney disease , end-stage renal disease. 4. COPD. 5. Hypertension. 6. Anemia. 7. Hypothyroidism. 8. Hyperlipidemia. 9. Major depression. 10. Leukocytosis 11. Hypotension 12. Hepatitis C 13. Hyperuricemia 14. Diarrhea 15. septic shock 16. Leukocytosis worsening 17. Pneumonia with Staph aureus RECOMMENDATIONS: Will f/u Sputum culture & blood culture Continue Levaquin & Cefepime &IV Vancomycin Subjective ROS Limited/Unobtainable: Yes Constitutional: Reports: fever, other - [id number] Cardiovascular: Reports: other - on Levophed Neurologic: Reports: confusion, other - on restraint Allergies: Coded Allergies: No Known Allergies (Unverified , 05/28/19) Objective Vital Signs Last 24 Hour Vital Signs Date Time Temp Pulse Resp B/P (MAP) Pulse Ox O2 Delivery O2 Flow Rate FiO2 07/21/19 11:30 91 26 136/75 (95) 100 07/21/19 11:00 95 26 130/77 (94) 100 07/21/19 11:00 130/77 07/21/19 11:00 31 130/77 Mechanical Ventilator 45 07/21/19 10:53 92 26 100 Mechanical Ventilator 45 88 26 50 07/21/19 10:30 91 26 96/62 (73) 100 07/21/19 10:00 103/64 07/21/19 10:00 26 103/64 Mechanical Ventilator 45 07/21/19 10:00 90 26 103/64 (77) 100 07/21/19 09:30 89 26 102/70 (81) 100 07/21/19 09:08 100 07/21/19 09:05 45 07/21/19 09:00 89 29 121/79 (93) 100 07/21/19 09:00 121/79 07/21/19 09:00 29 121/79 Mechanical Ventilator 45 07/21/19 08:30 114 27 125/79 (94) 100 07/21/19 08:15 137/77 07/21/19 08:00 Mechanical Ventilator 6/10/20 08:00 137/77 07/21/19 08:00 26 137/77 Mechanical Ventilator 50 07/21/19 08:00 97.9 89 26 137/77 (97) 100 07/21/19 08:00 89 07/21/19 08:00 50 07/21/19 07:30 75 26 121/68 (85) 100 07/21/19 07:18 75 26 100 Mechanical Ventilator 50 78 28 50 07/21/19 07:00 114/68 07/21/19 07:00 26 114/68 Mechanical Ventilator 50 07/21/19 07:00 74 26 114/68 (83) 100 07/21/19 06:30 74 26 95/58 (70) 100 07/21/19 06:00 77 26 122/69 (86) 100 07/21/19 06:00 122/69 07/21/19 06:00 26 122/69 Mechanical Ventilator 26.0 50 07/21/19 05:30 74 28 144/73 (96) 100 07/21/19 05:00 126/70 07/21/19 05:00 26 126/70 Mechanical Ventilator 50 07/21/19 05:00 79 26 126/70 (88) 100 07/21/19 04:30 81 26 104/64 (77) 100 07/21/19 04:00 Mechanical Ventilator 07/21/19 04:00 50 07/21/19 04:00 117/85 07/21/19 04:00 24 117/85 Mechanical Ventilator 50 07/21/19 04:00 77 07/21/19 04:00 98.0 91 18 117/85 (96) 95 07/21/19 03:30 78 26 106/71 (83) 100 07/21/19 03:08 79 26 100 Mechanical Ventilator 50 82 27 50 07/21/19 03:00 131/70 07/21/19 03:00 26 131/70 Mechanical Ventilator 50 07/21/19 03:00 84 25 131/70 (90) 100 07/21/19 02:30 82 26 134/81 (98) 100 07/21/19 02:00 84 26 133/77 (95) 100 07/21/19 02:00 133/77 07/21/19 02:00 26 133/77 Mechanical Ventilator 50 07/21/19 01:30 87 26 140/82 (101) 100 07/21/19 01:00 93 28 148/83 (104) 07/21/19 01:00 154/81 07/21/19 01:00 26 154/81 Mechanical Ventilator 50 07/21/19 00:30 99 26 143/75 (97) 90 07/21/19 00:00 Mechanical Ventilator 07/21/19 00:00 50 07/21/19 00:00 100.0 95 25 157/84 (108) 100 07/21/19 00:00 157/84 07/21/19 00:00 26 157/84 Mechanical Ventilator 50 07/21/19 00:00 96 07/20/19 23:54 88 26 100 Mechanical Ventilator 50 88 26 50 07/20/19 23:30 84 26 126/74 (91) 100 07/20/19 23:30 126/74 07/20/19 23:00 84 63 131/74 (93) 07/20/19 23:00 26 156/78 Mechanical Ventilator 50 07/20/19 23:00 156/78 07/20/19 22:30 86 26 115/71 (86) 100 07/20/19 22:00 26 114/68 Mechanical Ventilator 50 07/20/19 22:00 114/68 07/20/19 22:00 91 26 114/68 (83) 100 07/20/19 21:30 98 26 106/62 (77) 100 07/20/19 21:00 26 100/60 Mechanical Ventilator 50 07/20/19 21:00 100/60 07/20/19 21:00 93 27 100/60 (73) 100 07/20/19 20:30 101 27 98/60 (73) 100 07/20/19 20:16 99 29 100 Mechanical Ventilator 50 100 29 50 07/20/19 20:00 102 07/20/19 20:00 50 07/20/19 20:00 Mechanical Ventilator 07/20/19 20:00 26 120/71 Mechanical Ventilator 50 07/20/19 20:00 120/71 07/20/19 20:00 102.0 102 27 120/71 (87) 100 07/20/19 19:30 104 28 113/66 (82) 100 07/20/19 19:02 106/59 07/20/19 19:00 33 97/60 Mechanical Ventilator 50 07/20/19 19:00 106 28 97/60 (72) 100 07/20/19 19:00 97/60 07/20/19 18:51 100.8 07/20/19 18:30 115 31 109/67 (81) 100 07/20/19 18:15 104 26 118/72 (87) 100 07/20/19 18:00 33 118/72 Mechanical Ventilator 50 07/20/19 18:00 118/72 07/20/19 18:00 100.8 108 33 108/64 (79) 100 07/20/19 17:45 108 33 106/72 (83) 100 07/20/19 17:30 110 22 105/72 (83) 100 07/20/19 17:15 112 42 110/71 (84) 99 07/20/19 17:00 34 110/71 Mechanical Ventilator 50 07/20/19 17:00 110/71 07/20/19 17:00 105 33 82/61 (68) 100 07/20/19 16:45 105 33 87/63 (71) 100 07/20/19 16:30 105 33 97/66 (76) 100 07/20/19 16:15 108 33 94/63 (73) 100 07/20/19 16:00 50 07/20/19 16:00 33 94/63 Mechanical Ventilator 50 07/20/19 16:00 94/63 07/20/19 16:00 102.0 112 29 93/66 (75) 100 07/20/19 16:00 112 07/20/19 16:00 Mechanical Ventilator 07/20/19 15:45 114 33 89/54 (66) 100 07/20/19 15:35 30 79/53 Mechanical Ventilator 50 07/20/19 15:30 121 33 79/53 (62) 100 07/20/19 15:03 120 33 100 Mechanical Ventilator 50 117 30 50 07/20/19 15:00 34 99/60 Mechanical Ventilator 50 07/20/19 15:00 99/60 07/20/19 15:00 117 35 99/60 (73) 100 07/20/19 14:30 122 35 80/61 (67) 100 07/20/19 14:17 67/48 07/20/19 14:00 122 35 90/61 (71) 100 07/20/19 14:00 35 80/61 Mechanical Ventilator 50 07/20/19 14:00 80/61 07/20/19 13:30 144 39 75/50 (58) 100 07/20/19 13:00 140 34 76/55 (62) 100 07/20/19 13:00 34 76/55 Mechanical Ventilator 60 07/20/19 13:00 76/55 07/20/19 12:30 125 29 108/77 (87) 100 07/20/19 12:00 127 07/20/19 12:00 32 127/78 Mechanical Ventilator 60 07/20/19 12:00 127/78 07/20/19 12:00 50 07/20/19 12:00 127 32 127/78 (94) 100 07/20/19 12:00 Mechanical Ventilator Height (Feet): 6 Height (Inches): 1.00 Weight (Pounds): 188 HEENT: status post trach Respiratory/Chest: other - on ventilator Cardiovascular: normal rate, other - HD & central line Abdomen: soft, non tender, other - GT feeding Extremities: no edema Neurologic/Psychiatric: disoriented Microbiology Date/Time Source Procedure Growth Status 07/20/19 02:00 Sputum Gram Stain Pending Resulted 07/20/19 02:00 Sputum Culture - Preliminary Staphylococcus Aureus Resulted Laboratory Tests Test 07/21/19 04:00 Random Vancomycin Level 25.5 ug/mL Current Medications Medications (Trade) Dose Ordered Sig/Anthony Route PRN Reason Start Time Stop Time Status Last Admin Dose Admin Acetaminophen (Tylenol) 650 mg Q4H PRN NG For Pain 07/11/19 08:00 08/10/19 07:59 07/20/19 18:21 Albuterol Sulfate (Proventil MDI) 2 puff Q4HRT INH 06/06/19 23:00 08/30/19 18:59 07/21/19 07:40 Cefepime HCl 500 mg/Dextrose 55 ml @ 110 mls/hr Q24H IV 07/20/19 12:00 07/27/19 11:59 07/20/19 12:06 Chlorhexidine Gluconate (Michelle-Hex 2%) 1 applic DAILY@2000 TOPIC 06/07/19 20:00 09/05/19 19:59 07/20/19 20:12 Dextrose (Dextrose 50%) 25 ml Q30M PRN IV Hypoglycemia 06/20/19 19:30 09/18/19 19:29 Dextrose (Dextrose 50%) 50 ml Q30M PRN IV Hypoglycemia 06/20/19 19:30 09/18/19 19:29 Dopamine HCl/ Dextrose 250 ml @ 0 mls/hr Q24H PRN IV For hypotension 06/13/19 08:15 09/11/19 08:14 07/17/19 08:46 Enoxaparin Sodium (Lovenox) 30 mg DAILY SUBQ 06/07/19 09:00 08/27/19 08:59 07/21/19 08:15 Epoetin Aftab (Epoetin Aftab(ESRD on dialysis)) 10,000 unit FRI- SUBQ 06/07/19 21:00 08/31/19 20:59 07/19/19 21:00 Fentanyl Citrate 250 ml @ 0 mls/hr Q24H IV 07/19/19 14:06 10/17/19 14:05 07/20/19 15:35 Haloperidol Lactate 5 mg/ Dextrose 56 ml @ 224 mls/hr Q6H PRN IVPB Agitation 07/11/19 15:00 08/25/19 14:59 07/15/19 02:36 Hydralazine HCl (Apresoline) 10 mg Q4H PRN IV Blood pressure over 160 systol 06/07/19 10:15 09/05/19 10:14 Insulin Aspart (NovoLOG) EVERY 6 HOURS SUBQ 06/21/19 00:00 09/19/19 00:00 07/21/19 05:46 Levofloxacin (Levaquin) 500 mg EVERY OTHER DAY GT 07/21/19 09:00 07/28/19 08:59 07/21/19 08:14 Midodrine (Pro-Amatine) 10 mg Q8HR ORAL 07/17/19 14:00 10/15/19 10:29 07/21/19 05:27 Norepinephrine Bitartrate 16 mg/ Dextrose 500 ml @ 0 mls/hr Q24H IV 07/20/19 22:00 08/19/19 21:59 07/21/19 08:15 Sevelamer Carbonate (Renvela) 2,400 mg Q6HR NG 07/14/19 12:00 10/12/19 13:59 07/21/19 05:27 Vancomycin HCl (Vanco pharmacy to dose) 1 ea DAILY PRN MISC Per rx protocol 07/20/19 10:45 08/19/19 10:44 Ted Leyva MD Jul 21, 2019 12:00
[2019-07-21] MEDS: Cefepime 500mg/D5W 55ml IV SCH ×2 (12:04)
[2019-07-21] MEDS: fentaNYL 2500mcg/NS 250ml 250 ML IV SCH (14:26)
--- NOTE | 2019-07-21 14:39 | Surgery Progress Note ---
Surgery Progress Note Subjective Procedure Performed Right femoral temporary hemodialysis catheter removal Additional Comments no acute events labs noted moving around in bed Objective Last 24 Hour Vital Signs Date Time Temp Pulse Resp B/P (MAP) Pulse Ox O2 Delivery O2 Flow Rate FiO2 07/21/19 14:26 24 111/77 Mechanical Ventilator 45 07/21/19 14:00 94 24 135/80 (98) 100 07/21/19 14:00 135/80 07/21/19 14:00 24 135/80 Mechanical Ventilator 45 07/21/19 13:45 92 26 132/70 (90) 100 07/21/19 13:30 136/70 07/21/19 13:30 24 136/70 Mechanical Ventilator 45 07/21/19 13:30 93 23 136/70 (92) 100 07/21/19 13:15 86 26 141/72 (95) 100 07/21/19 13:00 89 24 130/80 (97) 100 07/21/19 13:00 130/80 07/21/19 13:00 24 130/80 Mechanical Ventilator 45 07/21/19 12:30 84 26 131/81 (98) 100 07/21/19 12:00 97.5 87 25 144/88 (106) 100 07/21/19 12:00 Mechanical Ventilator 07/21/19 12:00 144/88 07/21/19 12:00 28 144/88 Mechanical Ventilator 45 07/21/19 11:30 91 26 136/75 (95) 100 07/21/19 11:00 95 26 130/77 (94) 100 07/21/19 11:00 130/77 07/21/19 11:00 31 130/77 Mechanical Ventilator 45 07/21/19 10:53 92 26 100 Mechanical Ventilator 45 88 26 50 07/21/19 10:30 91 26 96/62 (73) 100 07/21/19 10:00 103/64 07/21/19 10:00 26 103/64 Mechanical Ventilator 45 07/21/19 10:00 90 26 103/64 (77) 100 07/21/19 09:30 89 26 102/70 (81) 100 07/21/19 09:08 100 07/21/19 09:05 45 07/21/19 09:00 89 29 121/79 (93) 100 07/21/19 09:00 121/79 07/21/19 09:00 29 121/79 Mechanical Ventilator 45 07/21/19 08:30 114 27 125/79 (94) 100 07/21/19 08:15 137/77 07/21/19 08:00 Mechanical Ventilator 07/21/19 08:00 137/77 07/21/19 08:00 26 137/77 Mechanical Ventilator 50 07/21/19 08:00 97.9 89 26 137/77 (97) 100 07/21/19 08:00 89 07/21/19 08:00 50 07/21/19 07:30 75 26 121/68 (85) 100 07/21/19 07:18 75 26 100 Mechanical Ventilator 50 78 28 50 07/21/19 07:00 114/68 07/21/19 07:00 26 114/68 Mechanical Ventilator 50 07/21/19 07:00 74 26 114/68 (83) 100 07/21/19 06:30 74 26 95/58 (70) 100 07/21/19 06:00 77 26 122/69 (86) 100 07/21/19 06:00 122/69 07/21/19 06:00 26 122/69 Mechanical Ventilator 26.0 50 07/21/19 05:30 74 28 144/73 (96) 100 07/21/19 05:00 126/70 07/21/19 05:00 26 126/70 Mechanical Ventilator 50 07/21/19 05:00 79 26 126/70 (88) 100 07/21/19 04:30 81 26 104/64 (77) 100 07/21/19 04:00 Mechanical Ventilator 07/21/19 04:00 50 07/21/19 04:00 117/85 07/21/19 04:00 24 117/85 Mechanical Ventilator 50 07/21/19 04:00 77 07/21/19 04:00 98.0 91 18 117/85 (96) 95 07/21/19 03:30 78 26 106/71 (83) 100 07/21/19 03:08 79 26 100 Mechanical Ventilator 50 82 27 50 07/21/19 03:00 131/70 07/21/19 03:00 26 131/70 Mechanical Ventilator 50 07/21/19 03:00 84 25 131/70 (90) 100 07/21/19 02:30 82 26 134/81 (98) 100 07/21/19 02:00 84 26 133/77 (95) 100 07/21/19 02:00 133/77 07/21/19 02:00 26 133/77 Mechanical Ventilator 50 07/21/19 01:30 87 26 140/82 (101) 100 07/21/19 01:00 93 28 148/83 (104) 07/21/19 01:00 154/81 07/21/19 01:00 26 154/81 Mechanical Ventilator 50 07/21/19 00:30 99 26 143/75 (97) 90 07/21/19 00:00 Mechanical Ventilator 07/21/19 00:00 50 07/21/19 00:00 100.0 95 25 157/84 (108) 100 07/21/19 00:00 157/84 07/21/19 00:00 26 157/84 Mechanical Ventilator 50 07/21/19 00:00 96 07/20/19 23:54 88 26 100 Mechanical Ventilator 50 88 26 50 07/20/19 23:30 84 26 126/74 (91) 100 07/20/19 23:30 126/74 07/20/19 23:00 84 63 131/74 (93) 07/20/19 23:00 26 156/78 Mechanical Ventilator 50 07/20/19 23:00 156/78 07/20/19 22:30 86 26 115/71 (86) 100 07/20/19 22:00 26 114/68 Mechanical Ventilator 50 07/20/19 22:00 114/68 07/20/19 22:00 91 26 114/68 (83) 100 07/20/19 21:30 98 26 106/62 (77) 100 07/20/19 21:00 26 100/60 Mechanical Ventilator 50 07/20/19 21:00 100/60 07/20/19 21:00 93 27 100/60 (73) 100 07/20/19 20:30 101 27 98/60 (73) 100 07/20/19 20:16 99 29 100 Mechanical Ventilator 50 100 29 50 07/20/19 20:00 102 07/20/19 20:00 50 07/20/19 20:00 Mechanical Ventilator 07/20/19 20:00 26 120/71 Mechanical Ventilator 50 07/20/19 20:00 120/71 07/20/19 20:00 102.0 102 27 120/71 (87) 100 07/20/19 19:30 104 28 113/66 (82) 100 07/20/19 19:02 106/59 07/20/19 19:00 33 97/60 Mechanical Ventilator 50 07/20/19 19:00 106 28 97/60 (72) 100 07/20/19 19:00 97/60 07/20/19 18:51 100.8 07/20/19 18:30 115 31 109/67 (81) 100 07/20/19 18:15 104 26 118/72 (87) 100 07/20/19 18:00 33 118/72 Mechanical Ventilator 50 07/20/19 18:00 118/72 07/20/19 18:00 100.8 108 33 108/64 (79) 100 07/20/19 17:45 108 33 106/72 (83) 100 07/20/19 17:30 110 22 105/72 (83) 100 07/20/19 17:15 112 42 110/71 (84) 99 07/20/19 17:00 34 110/71 Mechanical Ventilator 50 07/20/19 17:00 110/71 07/20/19 17:00 105 33 82/61 (68) 100 07/20/19 16:45 105 33 87/63 (71) 100 07/20/19 16:30 105 33 97/66 (76) 100 07/20/19 16:15 108 33 94/63 (73) 100 07/20/19 16:00 50 07/20/19 16:00 33 94/63 Mechanical Ventilator 50 07/20/19 16:00 94/63 07/20/19 16:00 102.0 112 29 93/66 (75) 100 07/20/19 16:00 112 07/20/19 16:00 Mechanical Ventilator 07/20/19 15:45 114 33 89/54 (66) 100 07/20/19 15:35 30 79/53 Mechanical Ventilator 50 07/20/19 15:30 121 33 79/53 (62) 100 07/20/19 15:03 120 33 100 Mechanical Ventilator 50 117 30 50 07/20/19 15:00 34 99/60 Mechanical Ventilator 50 07/20/19 15:00 99/60 07/20/19 15:00 117 35 99/60 (73) 100 I&O Intake and Output 07/20/19 07/21/19 19:00 07:00 Intake Total 1511.658 ml 1244.055 ml Balance 1511.658 ml 1244.055 ml IV Total 871.658 ml 624.055 ml Tube Feeding 420 ml 420 ml Other 220 ml 200 ml # Bowel Movements 3 Dressing: other Wound: other Drains: other Cardiovascular: RSR Respiratory: decreased breath sounds Abdomen: soft, non-tender, present bowel sounds Extremities: no cyanosis Laboratory Tests Test 07/21/19 04:00 Random Vancomycin Level 25.5 ug/mL Plan Problems: (1) Suspected COVID-19 virus infection (2) HTN (hypertension) (3) CASSANDRA (acute kidney injury) Assessment & Plan: Needs urgent HD needs access patient okay and consented see note will follow with recs new line placed discussed with team and nephrology HD line functional when checked has TPA now please use appropriately Cathflo used again this flow during dialysis on 430 was low. Will monitor may need line change 5/4 plan for HD as per renal may need to take fluid off with HD edema anasarca dressings saturated and changed will monitor cont with HD IJ left line placed for HD given extent of prior line in place. leukocytosis blood cx negative may need to change out line new line okay HD going well (4) Anemia in chronic kidney disease (CKD) (5) Anemia (6) Renal failure (7) Suspected COVID-19 virus infection Assessment & Plan: Pt deconditioned and despite all skin preventions Pt noted to have developed several pressure injuries. . Stable dry eschar noted to clefts of R and L ears. No erythema noted . DTPI noted to L trochanter. Base of injury is maroon in colour with marginal erythema along borders. Partially opened DTPI Sacrum, R and L Buttocks. Base of wound is maroon with two small open wounds L sacrum and L buttocks. Pt has an APM/MOMO Mattress overlay and is being positioned with pillows as per tolerance and within protocols. worsening despite medical efforts will cont to provide therapy Tx.Plan: Apply Cavilon Skin Barrier to both ears Daily and prn. Apply Moisture Barrier Paste to Sacrum,R and L Buttocks. Cover with Optifoam drsgs. Change every 3 days and PRN. Apply Cavilon Skin Barrier to R and L trochanter. Cover each site with Optifoam drsgs.Change every 7 days and PRN. Apply Cavilon Skin Barrier to both heels. Cover each heel with Optifoam drsg. Change every 7 days and prn. Off-load heels with pillow. Reposition at least every 2hours or as tolerated. APM/MOMO Mattress overlay. (8) COVID-19 Assessment & Plan: COVID + c diff negative febrile leukocytosis renal insufficiency see above cont resp care Rx as per ID worsening on vent support now cxr noted on pressors prognosis guarded repeat covid ++ weaning vent and pressors off slowly showing improvement slowly recovering will need trach as unable to wean vent safely called and spoke with country conservatorship. consent obtained s/p trach pending peg worsening on levo Yaniv Taylor Jul 21, 2019 14:39
[2019-07-21] MEDS: Dyna-Hex 2% Top Sol 2oz TOPIC SCH (20:04)
[2019-07-21] MEDS: Epoetin Alfa-EPBX(ESRD on dialysis)10,000 unit/ml vial SUBQ SCH (21:00)
--- NOTE | 2019-07-21 23:18 | General Progress Note ---
Assessment/Plan Problem List: (1) HTN (hypertension) ICD Codes: I10 - Essential (primary) hypertension SNOMED: 46621029 (2) CASSANDRA (acute kidney injury) ICD Codes: N17.9 - Acute kidney failure, unspecified SNOMED: 0239620, 00643925 (3) Anemia in chronic kidney disease (CKD) ICD Codes: N18.9 - Chronic kidney disease, unspecified; D63.1 - Anemia in chronic kidney disease SNOMED: 508127753 (4) Renal failure ICD Codes: N19 - Unspecified kidney failure SNOMED: 56083932 (5) Respiratory failure requiring intubation ICD Codes: J96.90 - Respiratory failure, unspecified, unspecified whether with hypoxia or hypercapnia; A41.89 - Other specified sepsis SNOMED: 185118093, 226814968 (6) Pneumonia due to COVID-19 virus ICD Codes: U07.1 - COVID-19; J12.89 - Other viral pneumonia SNOMED: 544783361, 499401444 (7) Sepsis due to severe acute respiratory syndrome coronavirus 2 (SARS-CoV-2) ICD Codes: U07.1 - COVID-19; A41.89 - Other specified sepsis SNOMED: 951826170, 104641421 Status: progressing, unchanged Assessment/Plan: trach and peg on pressors not improving on full support worsening renal failure worsening leukocytosis very poor prognosis diaylsis per renal s/p covid pna Subjective ROS Limited/Unobtainable: Yes Allergies: Coded Allergies: No Known Allergies (Unverified , 05/28/19) Objective Last 24 Hour Vital Signs Date Time Temp Pulse Resp B/P (MAP) Pulse Ox O2 Delivery O2 Flow Rate FiO2 07/21/19 23:08 96 32 100 Mechanical Ventilator 45 100 31 45 07/21/19 23:00 146/98 07/21/19 23:00 24 146/98 Mechanical Ventilator 45 07/21/19 23:00 96 24 146/98 (114) 100 07/21/19 22:30 88 31 101/59 (73) 100 07/21/19 22:00 85 26 93/67 (76) 100 07/21/19 22:00 93/67 07/21/19 22:00 26 93/67 Mechanical Ventilator 45 07/21/19 21:30 88 26 86/60 (69) 100 07/21/19 21:00 96/56 07/21/19 21:00 26 96/56 Mechanical Ventilator 45 07/21/19 21:00 105 23 96/56 (69) 100 07/21/19 20:30 97 30 103/81 (88) 100 07/21/19 20:00 105 07/21/19 20:00 123/98 07/21/19 20:00 27 123/98 Mechanical Ventilator 45 07/21/19 20:00 97.9 104 24 123/98 (106) 100 07/21/19 20:00 Mechanical Ventilator 07/21/19 20:00 45 07/21/19 19:31 105 31 100 Mechanical Ventilator 45 106 31 45 07/21/19 19:30 106 21 152/79 (103) 100 07/21/19 19:00 141/94 07/21/19 19:00 24 141/94 Mechanical Ventilator 45 07/21/19 19:00 99 22 143/106 (118) 100 07/21/19 18:30 101 24 138/79 (98) 100 07/21/19 18:00 155/71 07/21/19 18:00 24 155/71 Mechanical Ventilator 45 07/21/19 18:00 92 22 131/68 (89) 100 07/21/19 17:30 102 24 94/66 (75) 100 07/21/19 17:00 115/77 07/21/19 17:00 24 115/77 Mechanical Ventilator 45 07/21/19 17:00 96 25 99/58 (72) 100 07/21/19 16:30 94 12 116/67 (83) 100 07/21/19 16:00 45 07/21/19 16:00 Mechanical Ventilator 07/21/19 16:00 98 07/21/19 16:00 99.3 90 26 96/59 (71) 100 07/21/19 16:00 96/59 07/21/19 16:00 24 96/59 Mechanical Ventilator 45 07/21/19 15:30 84 27 117/67 (84) 100 07/21/19 15:14 92 26 100 Mechanical Ventilator 45 91 26 50 07/21/19 15:00 90 27 98/63 (75) 100 07/21/19 15:00 98/63 07/21/19 15:00 24 98/63 Mechanical Ventilator 45 07/21/19 14:30 88 26 106/70 (82) 100 07/21/19 14:26 24 111/77 Mechanical Ventilator 45 07/21/19 14:00 94 24 135/80 (98) 100 07/21/19 14:00 135/80 07/21/19 14:00 24 135/80 Mechanical Ventilator 45 07/21/19 13:45 92 26 132/70 (90) 100 07/21/19 13:30 136/70 07/21/19 13:30 24 136/70 Mechanical Ventilator 45 07/21/19 13:30 93 23 136/70 (92) 100 07/21/19 13:15 86 26 141/72 (95) 100 07/21/19 13:00 89 24 130/80 (97) 100 07/21/19 13:00 130/80 07/21/19 13:00 24 130/80 Mechanical Ventilator 45 07/21/19 12:30 84 26 131/81 (98) 100 07/21/19 12:00 97.5 87 25 144/88 (106) 100 07/21/19 12:00 45 07/21/19 12:00 Mechanical Ventilator 07/21/19 12:00 91 07/21/19 12:00 144/88 07/21/19 12:00 28 144/88 Mechanical Ventilator 45 07/21/19 11:30 91 26 136/75 (95) 100 07/21/19 11:00 95 26 130/77 (94) 100 07/21/19 11:00 130/77 07/21/19 11:00 31 130/77 Mechanical Ventilator 45 07/21/19 10:53 92 26 100 Mechanical Ventilator 45 88 26 50 07/21/19 10:30 91 26 96/62 (73) 100 07/21/19 10:00 103/64 07/21/19 10:00 26 103/64 Mechanical Ventilator 45 07/21/19 10:00 90 26 103/64 (77) 100 07/21/19 09:30 89 26 102/70 (81) 100 07/21/19 09:08 100 07/21/19 09:05 45 07/21/19 09:00 89 29 121/79 (93) 100 07/21/19 09:00 121/79 07/21/19 09:00 29 121/79 Mechanical Ventilator 45 07/21/19 08:30 114 27 125/79 (94) 100 07/21/19 08:15 137/77 07/21/19 08:00 Mechanical Ventilator 07/21/19 08:00 137/77 07/21/19 08:00 26 137/77 Mechanical Ventilator 50 07/21/19 08:00 97.9 89 26 137/77 (97) 100 07/21/19 08:00 89 07/21/19 08:00 50 07/21/19 07:30 75 26 121/68 (85) 100 07/21/19 07:18 75 26 100 Mechanical Ventilator 50 78 28 50 07/21/19 07:00 114/68 07/21/19 07:00 26 114/68 Mechanical Ventilator 50 07/21/19 07:00 74 26 114/68 (83) 100 07/21/19 06:30 74 26 95/58 (70) 100 07/21/19 06:00 77 26 122/69 (86) 100 07/21/19 06:00 122/69 07/21/19 06:00 26 122/69 Mechanical Ventilator 26.0 50 07/21/19 05:30 74 28 144/73 (96) 100 07/21/19 05:00 126/70 07/21/19 05:00 26 126/70 Mechanical Ventilator 50 07/21/19 05:00 79 26 126/70 (88) 100 07/21/19 04:30 81 26 104/64 (77) 100 07/21/19 04:00 Mechanical Ventilator 07/21/19 04:00 50 07/21/19 04:00 117/85 07/21/19 04:00 24 117/85 Mechanical Ventilator 50 07/21/19 04:00 77 07/21/19 04:00 98.0 91 18 117/85 (96) 95 07/21/19 03:30 78 26 106/71 (83) 100 07/21/19 03:08 79 26 100 Mechanical Ventilator 50 82 27 50 07/21/19 03:00 131/70 07/21/19 03:00 26 131/70 Mechanical Ventilator 50 07/21/19 03:00 84 25 131/70 (90) 100 07/21/19 02:30 82 26 134/81 (98) 100 07/21/19 02:00 84 26 133/77 (95) 100 07/21/19 02:00 133/77 07/21/19 02:00 26 133/77 Mechanical Ventilator 50 07/21/19 01:30 87 26 140/82 (101) 100 07/21/19 01:00 93 28 148/83 (104) 07/21/19 01:00 154/81 07/21/19 01:00 26 154/81 Mechanical Ventilator 50 07/21/19 00:30 99 26 143/75 (97) 90 07/21/19 00:00 Mechanical Ventilator 07/21/19 00:00 50 07/21/19 00:00 100.0 95 25 157/84 (108) 100 07/21/19 00:00 157/84 07/21/19 00:00 26 157/84 Mechanical Ventilator 50 07/21/19 00:00 96 07/20/19 23:54 88 26 100 Mechanical Ventilator 50 88 26 50 07/20/19 23:30 84 26 126/74 (91) 100 07/20/19 23:30 126/74 Intake and Output 07/20/19 07/21/19 19:00 07:00 Intake Total 1511.658 ml 1244.055 ml Balance 1511.658 ml 1244.055 ml IV Total 871.658 ml 624.055 ml Tube Feeding 420 ml 420 ml Other 220 ml 200 ml # Bowel Movements 3 Laboratory Tests 07/21/19 04:00: Random Vancomycin Level 25.5 Height (Feet): 6 Height (Inches): 1.00 Weight (Pounds): 188 Karishma Mulligan MD Jul 21, 2019 23:18
[2019-07-22] VITALS (48 sets, daily range): BP systolic 89–147; BP diastolic 54–79
[2019-07-22] MEDS: Albuterol 90mcg Inhaler 8gm INH SCH ×6 (02:59→23:14)
[2019-07-22 05:05] LABS: HEMATOCRIT 31.1 % (42.0-52.0); HEMOGLOBIN 10.2 G/DL (14.2-18.0); MEAN CORPUSCULAR VOLUME 88 FL (80-99); PLATELET COUNT 315 K/UL (150-450); RED BLOOD COUNT 3.52 M/UL (4.70-6.10); RED CELL DISTRIBUTION WIDTH 15.9 % (11.6-14.8)
[2019-07-22] MEDS: Midodrine 10mg tab ORAL SCH ×3 (05:23→21:17)
[2019-07-22] MEDS: Norepinephrine Bitartrate 16 MG in D5W 500ml 484 ML IV SCH (05:23)
[2019-07-22] MEDS: Renvela 2400 mg pkt NG SCH ×4 (05:23→22:59)
[2019-07-22] MEDS: NovoLOG Insulin Flexpen SUBQ SCH ×4 (05:37→23:17)
[2019-07-22 05:52] LABS: ALANINE AMINOTRANSFERASE 12 U/L (12-78); ALBUMIN 2.7 G/DL (3.4-5.0); ALBUMIN/GLOBULIN RATIO 0.5 (1.0-2.7); ALKALINE PHOSPHATASE 179 U/L (46-116); ANION GAP 16 mmol/L (5-15); ASPARTATE AMINO TRANSFERASE 20 U/L (15-37); BILIRUBIN,TOTAL 0.4 MG/DL (0.2-1.0); BLOOD UREA NITROGEN 81 mg/dL (7-18); CALCIUM 9.3 MG/DL (8.5-10.1); CARBON DIOXIDE 26 MMOL/L (21-32); CHLORIDE 92 MMOL/L (98-107); POTASSIUM 3.7 MMOL/L (3.5-5.1); SODIUM 134 MMOL/L (136-145)
[2019-07-22 06:05] LABS: PHOSPHORUS 3.7 MG/DL (2.5-4.9)
[2019-07-22 06:07] LABS: WHITE BLOOD COUNT 25.9 K/UL (4.8-10.8)
[2019-07-22] MEDS: fentaNYL 2500mcg/NS 250ml 250 ML IV SCH ×2 (06:59→22:57)
[2019-07-22] MEDS: Enoxaparin 30mg Inj SUBQ SCH (09:19)
--- NOTE | 2019-07-22 10:59 | Nephrology Progress Note ---
Assessment/Plan Problem List: (1) CASSANDRA (acute kidney injury) (2) Anemia in chronic kidney disease (CKD) (3) HTN (hypertension) (4) COVID-19 Assessment Acute renal failure most likely superimposed on chronic kidney disease Suspected COVID-19 virus infection Possible Pneumonia, lymphopenia, elevated AST Cardiomegaly, possible CHF COPD Hypertension Anemia, most likely related to chronic kidney disease Plan July 21: Today's lab reviewed. Will arrange for dialysis tomorrow. Discussed with RN. Aim to keep the blood pressure above 100 systolic. Continue per consultants. July 20: Patient was dialyzed yesterday. Could not ultrafiltrate much due to low blood pressure. Discussed with SHANIQUE Dick today. No labs drawn today. Continue per consultants. July 19: Due for dialysis today. Discussed with SHANIQUE Dick. Continue per consultants. July 18: Dialyzed July 16. Will order dialysis tomorrow July 19. Continues to be on ventilator through trach. No labs done today. Continue per consultants. July 17: Dialyzed yesterday. Stable from renal standpoint of view. Remains full code. Status post trach on vent. Status post PEG. Continue per consultants. July 16: Dialysis today. Will resume Midodrin to prevent hypotension. Patient remains full code. July 15: Dialyzed yesterday, due for dialysis tomorrow. Labs and medication list reviewed. Continue per consultants. Patient remains full code. COVID-19 detected again. July 14: Patient currently on dialysis. This is continuation of dialysis from yesterday as yesterday's dialysis was cut short due to catheter malfunction. Labs and medication reviewed. Continue per consultants. July 13: Patient currently on hemodialysis. The dialysis catheter which is a intrajugular Kamlesh has poor flow. Will try TPA. Continue per consultants. July 12: Due for PEG today. Due for dialysis tomorrow. Continue per consultants. Discussed with RN. July 11: Plan for dialysis today. Discussed with RN. Data reviewed. July 10: Plan for dialysis tomorrow July 11. Waiting for consent to proceed with PEG. Continue per consultants. Medication reviewed. Labs reviewed. Discussed with RN. July 09: Dialyzed yesterday. Labs reviewed. Medication reviewed. Next hemodialysis July 11. July 08: Patient has tracheostomy now. Connected to ventilator. Due for dialysis today. Continue per consultants. Discussed with SHANIQUE Romero. July 07: Patient is due for tracheostomy today. Patient was last dialyzed July 05. Will order dialysis for tomorrow. July 06: Patient is intubated on ventilator however the plan is to extubate today. Patient was dialysis yesterday July 05. The dialysis time was cut short due to patient's respiratory distress. Only 1 L was removed during dialysis yesterday. Today's lab reviewed. Continue per consultants. Will arrange for dialysis as needed. July 05: Patient due for dialysis today. Remains intubated. Will schedule permacath placement in a.m. blood cultures on July 04 are negative. July 04: Patient was dialyzed yesterday. Due for dialysis tomorrow. Continues to be intubated. After tomorrow's dialysis will order a permacath. July 03: Dialysis is about to be started now Continues to be intubated Will plan to remove the femoral dialysis catheter and exchanged for a new temporary catheter per ID recommendation We will check surveillance blood culture tomorrow July 02: Patient was dialyzed yesterday and due for dialysis tomorrow Stable from renal standpoint W on dialysis Continue per consultants, weaning....... etc. July 01: Dialysis today Other status unchanged June 30: Due for dialysis tomorrow Remains intubated on ventilator Labs and medication reviewed Discussed with SHANIQUE Stable from renal standpoint of view June 29: Dialyzed yesterday Due for dialysis tomorrow Stable from renal standpoint to view Keeps failing weaning process June 28: Patient due for dialysis today Stable from renal standpoint to view Continue per consultants June 27: Labs reviewed Due due for dialysis June 28 Discussed with SHANIQUE Dick Continue per consultants Remains intubated on ventilator June 26 Labs reviewed Dialyzed yesterday Started on weaning today Continue to monitor renal parameters June 25: On dialysis now Potassium supplement implemented Continue per consultants Next dialysis June 27June 15: Status unchanged Dialyzed yesterday will dialyze again tomorrow Potassium supplements given Discussed with RN June 23: Due dialysis today Status: Remains intubated on ventilator June 22: Status unchanged Dialyzed yesterday and duefordialysistomorrow Serum sodium stable today June 21 Remains intubated on ventilator Due dialysis today Emphasized high sodium bath for dialysis June 20: Remains intubated on ventilator Dialyzed June 19 next dialysis June 21 Serum sodium 128, will give 250 cc 3% saline Remains full code Discussed with RN Iron panel ordered June 19: Discussed with RN. Patient due for dialysis today. Continue pulmonary support. Remains full code. June 18: Patient dialyzed yesterday June 17 Serum sodium improved but still low Arrange for dialysis tomorrow June 19 Continue per consultants June 17: Due for dialysis today Today's lab reviewed, low serum sodium noted, Emphasized on high sodium bath to dialysis nurse Discussed with RN Alpa June 16: Dialyzed yesterday Remains intubated Labs reviewed, serum sodium 131 Plan to dialyze tomorrow June 17 with high sodium bath Discussed with RN Alpa June 15: Due for dialysis today Labs reviewed Discussed with RN Transfuse 1 unit of packed RBCs today for low hemoglobin of 7.1 June 5: Blood pressure well maintained Receive dialysis June 13 next hemodialysis June 15June 4: Discussed with RN in ICU Patient did not receive proper dialysis yesterday due to dialysis catheter malfunction Catheter to be adjusted today and dialyzed to be resumed today Continue per consultants Positive for COVID 28 June 2: Patient now intubated on mechanical ventilation Discussed with RN Alpa, today June 12 Patient received dialysis yesterday June 10 next hemodialysis June 12 Blood pressure better maintained Today's labs reviewed Continue per consultants Previously patient received dialysis last evening June 05, next dialysis June 07 which was incomplete due to patient's hypotension Will start on midodrine for blood pressure support. Meanwhile continue other pressors as needed Previously Patient is doing poorly, septic, white blood cells are rising, Hypotension somewhat improved We will keep n.p.o. , NG tube for medications, and change medication to IV as needed Patient remains full code Monitor vancomycin level Previously: Patient pulled out his femoral catheter yesterday June 03 which was reinserted by Dr. Mast Patient scheduled for dialysis again June 04, which again was not done due to dialysis nurse citing catheter malfunction Meanwhile continue management per ID, pulmonary , and psych. Meanwhile white blood cell count is rising. Patient blood pressure borderline low. Will check ABG Previously May 31 : I believe patient need dialysis treatment He however needs to competency assessment if can make decisions or not I will communicate with Dr. Mulligan Previously: Per pulmonary and ID advice Adjust blood pressure medication Renal diet Anemia work-up 2D echocardiogram refused Kidney ultrasound refused Jules catheter Urine studies Per orders Subjective ROS Limited/Unobtainable: Yes Objective Objective Last 24 Hour Vital Signs Date Time Temp Pulse Resp B/P (MAP) Pulse Ox O2 Delivery O2 Flow Rate FiO2 07/22/19 08:30 80 26 124/71 (88) 100 07/22/19 08:00 45 07/22/19 08:00 99.7 82 24 141/63 (89) 100 07/22/19 08:00 125/67 07/22/19 08:00 24 125/67 Mechanical Ventilator 45 07/22/19 07:30 81 26 120/62 (81) 100 07/22/19 07:10 81 26 100 Mechanical Ventilator 45 81 26 45 07/22/19 07:00 119/68 07/22/19 07:00 26 119/62 Mechanical Ventilator 45 07/22/19 07:00 81 25 125/67 (86) 100 07/22/19 06:59 26 121/58 Mechanical Ventilator 45 07/22/19 06:30 80 26 105/62 (76) 100 07/22/19 06:00 85 26 126/78 (94) 100 07/22/19 06:00 126/78 07/22/19 06:00 26 126/78 Mechanical Ventilator 45 07/22/19 05:30 82 25 125/68 (87) 100 07/22/19 05:23 136/72 07/22/19 05:00 76 26 109/62 (78) 100 07/22/19 05:00 109/62 07/22/19 05:00 26 109/62 Mechanical Ventilator 45 07/22/19 04:30 81 26 114/66 (82) 100 07/22/19 04:00 45 07/22/19 04:00 99.1 80 26 110/64 (79) 100 07/22/19 04:00 81 07/22/19 04:00 Mechanical Ventilator 07/22/19 03:30 80 26 118/61 (80) 100 07/22/19 03:00 83 25 126/67 (86) 100 07/22/19 03:00 126/67 07/22/19 03:00 26 126/67 Mechanical Ventilator 45 07/22/19 02:59 90 26 100 Mechanical Ventilator 45 92 26 45 07/22/19 02:30 86 28 130/64 (86) 98 07/22/19 02:00 133/64 07/22/19 02:00 26 133/64 Mechanical Ventilator 45 07/22/19 02:00 88 24 133/64 (87) 100 07/22/19 01:30 83 26 109/68 (82) 100 07/22/19 01:00 81 28 115/66 (82) 100 07/22/19 01:00 115/66 07/22/19 01:00 26 115/66 Mechanical Ventilator 45 07/22/19 00:30 87 27 105/66 (79) 100 07/22/19 00:00 Mechanical Ventilator 07/22/19 00:00 97.9 91 25 131/78 (95) 100 07/22/19 00:00 131/78 07/22/19 00:00 26 131/78 Mechanical Ventilator 45 07/21/19 23:30 91 25 113/87 (96) 100 07/21/19 23:08 96 32 100 Mechanical Ventilator 45 100 31 45 07/21/19 23:00 146/98 07/21/19 23:00 24 146/98 Mechanical Ventilator 45 07/21/19 23:00 96 24 146/98 (114) 100 07/21/19 22:30 88 31 101/59 (73) 100 07/21/19 22:00 85 26 93/67 (76) 100 07/21/19 22:00 93/67 07/21/19 22:00 26 93/67 Mechanical Ventilator 45 07/21/19 21:30 88 26 86/60 (69) 100 07/21/19 21:00 96/56 07/21/19 21:00 26 96/56 Mechanical Ventilator 45 07/21/19 21:00 105 23 96/56 (69) 100 07/21/19 20:30 97 30 103/81 (88) 100 07/21/19 20:00 105 07/21/19 20:00 123/98 07/21/19 20:00 27 123/98 Mechanical Ventilator 45 07/21/19 20:00 97.9 104 24 123/98 (106) 100 07/21/19 20:00 Mechanical Ventilator 07/21/19 20:00 45 07/21/19 19:31 105 31 100 Mechanical Ventilator 45 106 31 45 07/21/19 19:30 106 21 152/79 (103) 100 07/21/19 19:00 141/94 07/21/19 19:00 24 141/94 Mechanical Ventilator 45 07/21/19 19:00 99 22 143/106 (118) 100 07/21/19 18:30 101 24 138/79 (98) 100 07/21/19 18:00 155/71 07/21/19 18:00 24 155/71 Mechanical Ventilator 45 07/21/19 18:00 92 22 131/68 (89) 100 07/21/19 17:30 102 24 94/66 (75) 100 07/21/19 17:00 115/77 07/21/19 17:00 24 115/77 Mechanical Ventilator 45 07/21/19 17:00 96 25 99/58 (72) 100 07/21/19 16:30 94 12 116/67 (83) 100 07/21/19 16:00 45 07/21/19 16:00 Mechanical Ventilator 07/21/19 16:00 98 07/21/19 16:00 99.3 90 26 96/59 (71) 100 07/21/19 16:00 96/59 07/21/19 16:00 24 96/59 Mechanical Ventilator 45 07/21/19 15:30 84 27 117/67 (84) 100 07/21/19 15:14 92 26 100 Mechanical Ventilator 45 91 26 50 07/21/19 15:00 90 27 98/63 (75) 100 07/21/19 15:00 98/63 07/21/19 15:00 24 98/63 Mechanical Ventilator 45 07/21/19 14:30 88 26 106/70 (82) 100 07/21/19 14:26 24 111/77 Mechanical Ventilator 45 07/21/19 14:00 94 24 135/80 (98) 100 07/21/19 14:00 135/80 07/21/19 14:00 24 135/80 Mechanical Ventilator 45 07/21/19 13:45 92 26 132/70 (90) 100 07/21/19 13:30 136/70 07/21/19 13:30 24 136/70 Mechanical Ventilator 45 07/21/19 13:30 93 23 136/70 (92) 100 07/21/19 13:15 86 26 141/72 (95) 100 07/21/19 13:00 89 24 130/80 (97) 100 07/21/19 13:00 130/80 07/21/19 13:00 24 130/80 Mechanical Ventilator 45 07/21/19 12:30 84 26 131/81 (98) 100 07/21/19 12:00 97.5 87 25 144/88 (106) 100 07/21/19 12:00 45 07/21/19 12:00 Mechanical Ventilator 07/21/19 12:00 91 07/21/19 12:00 144/88 07/21/19 12:00 28 144/88 Mechanical Ventilator 45 07/21/19 11:30 91 26 136/75 (95) 100 07/21/19 11:00 95 26 130/77 (94) 100 07/21/19 11:00 130/77 07/21/19 11:00 31 130/77 Mechanical Ventilator 45 Intake and Output 07/21/19 07/22/19 19:00 07:00 Intake Total 1089.375 ml 1017.5 ml Balance 1089.375 ml 1017.5 ml IV Total 489.375 ml 397.5 ml Tube Feeding 420 ml 420 ml Other 180 ml 200 ml # Bowel Movements 3 Laboratory Tests 07/22/19 04:00: White Blood Count 25.9*H, Red Blood Count 3.52L, Hemoglobin 10.2L, Hematocrit 31.1L, Mean Corpuscular Volume 88, Mean Corpuscular Hemoglobin 29.0, Mean Corpuscular Hemoglobin Concent 32.9, Red Cell Distribution Width 15.9H, Platelet Count 315, Mean Platelet Volume 6.7, Neutrophils (%) (Auto) , Lymphocytes (%) (Auto) , Monocytes (%) (Auto) , Eosinophils (%) (Auto) , Basophils (%) (Auto) , Differential Total Cells Counted 100, Neutrophils % ( Manual) 92H, Lymphocytes % (Manual) 6L, Monocytes % (Manual) 2, Eosinophils % ( Manual) 0, Basophils % (Manual) 0, Band Neutrophils 0, Platelet Estimate Adequate, Platelet Morphology Normal, Hypochromasia 1+, Anisocytosis 1+, Sodium Level 134L, Potassium Level 3.7, Chloride Level 92L, Carbon Dioxide Level 26, Anion Gap 16H, Blood Urea Nitrogen 81H, Creatinine 9.0H, Estimat Glomerular Filtration Rate 5.9, Glucose Level 289H, Calcium Level 9.3, Phosphorus Level 3.7 , Magnesium Level 2.5H, Total Bilirubin 0.4, Aspartate Amino Transf (AST/SGOT) 20, Alanine Aminotransferase (ALT/SGPT) 12, Alkaline Phosphatase 179H, C- Reactive Protein, Quantitative 7.0H, Pro-B-Type Natriuretic Peptide 18484R, Total Protein 8.4H, Albumin 2.7L, Globulin 5.7, Albumin/Globulin Ratio 0.5L, Random Vancomycin Level 24.1 Height (Feet): 6 Height (Inches): 1.00 Weight (Pounds): 185 General Appearance: no apparent distress EENT: other - Trach and vent Cardiovascular: tachycardia - Rate 80s Respiratory/Chest: decreased breath sounds Abdomen: soft Objective No change Mic Cole MD Jul 22, 2019 10:59
--- NOTE | 2019-07-22 11:03 | General Progress Note ---
Assessment/Plan Status: progressing, unchanged Assessment/Plan: 1. Diabetes. 2. Hypertension. 3. Coronary artery disease. 4. COPD. 5. Psychiatric disorder with schizophrenia. 6. History of hepatitis C. 7. HLP. 8. Chronic kidney disease, now with acute renal failure. 9. Anemia. 10. Hypothyroidism. 11. Spinal stenosis. 12. Constipation. 13. GERD. 14. COVID positive HD per nephrology fu labs icu care s/p PEG GTF failed weaning monitor for residuals Subjective ROS Limited/Unobtainable: No Allergies: Coded Allergies: No Known Allergies (Unverified , 05/28/19) Objective Last 24 Hour Vital Signs Date Time Temp Pulse Resp B/P (MAP) Pulse Ox O2 Delivery O2 Flow Rate FiO2 07/22/19 08:30 80 26 124/71 (88) 100 07/22/19 08:00 45 07/22/19 08:00 99.7 82 24 141/63 (89) 100 07/22/19 08:00 125/67 07/22/19 08:00 24 125/67 Mechanical Ventilator 45 07/22/19 07:30 81 26 120/62 (81) 100 07/22/19 07:10 81 26 100 Mechanical Ventilator 45 81 26 45 07/22/19 07:00 119/68 07/22/19 07:00 26 119/62 Mechanical Ventilator 45 07/22/19 07:00 81 25 125/67 (86) 100 07/22/19 06:59 26 121/58 Mechanical Ventilator 45 07/22/19 06:30 80 26 105/62 (76) 100 07/22/19 06:00 85 26 126/78 (94) 100 07/22/19 06:00 126/78 07/22/19 06:00 26 126/78 Mechanical Ventilator 45 07/22/19 05:30 82 25 125/68 (87) 100 07/22/19 05:23 136/72 07/22/19 05:00 76 26 109/62 (78) 100 07/22/19 05:00 109/62 07/22/19 05:00 26 109/62 Mechanical Ventilator 45 07/22/19 04:30 81 26 114/66 (82) 100 07/22/19 04:00 45 07/22/19 04:00 99.1 80 26 110/64 (79) 100 07/22/19 04:00 81 07/22/19 04:00 Mechanical Ventilator 07/22/19 03:30 80 26 118/61 (80) 100 07/22/19 03:00 83 25 126/67 (86) 100 07/22/19 03:00 126/67 07/22/19 03:00 26 126/67 Mechanical Ventilator 45 07/22/19 02:59 90 26 100 Mechanical Ventilator 45 92 26 45 07/22/19 02:30 86 28 130/64 (86) 98 07/22/19 02:00 133/64 07/22/19 02:00 26 133/64 Mechanical Ventilator 45 07/22/19 02:00 88 24 133/64 (87) 100 07/22/19 01:30 83 26 109/68 (82) 100 07/22/19 01:00 81 28 115/66 (82) 100 07/22/19 01:00 115/66 07/22/19 01:00 26 115/66 Mechanical Ventilator 45 07/22/19 00:30 87 27 105/66 (79) 100 07/22/19 00:00 Mechanical Ventilator 07/22/19 00:00 97.9 91 25 131/78 (95) 100 07/22/19 00:00 131/78 07/22/19 00:00 26 131/78 Mechanical Ventilator 45 07/21/19 23:30 91 25 113/87 (96) 100 07/21/19 23:08 96 32 100 Mechanical Ventilator 45 100 31 45 07/21/19 23:00 146/98 07/21/19 23:00 24 146/98 Mechanical Ventilator 45 07/21/19 23:00 96 24 146/98 (114) 100 07/21/19 22:30 88 31 101/59 (73) 100 07/21/19 22:00 85 26 93/67 (76) 100 07/21/19 22:00 93/67 07/21/19 22:00 26 93/67 Mechanical Ventilator 45 07/21/19 21:30 88 26 86/60 (69) 100 07/21/19 21:00 96/56 07/21/19 21:00 26 96/56 Mechanical Ventilator 45 07/21/19 21:00 105 23 96/56 (69) 100 07/21/19 20:30 97 30 103/81 (88) 100 07/21/19 20:00 105 07/21/19 20:00 123/98 07/21/19 20:00 27 123/98 Mechanical Ventilator 45 07/21/19 20:00 97.9 104 24 123/98 (106) 100 07/21/19 20:00 Mechanical Ventilator 07/21/19 20:00 45 07/21/19 19:31 105 31 100 Mechanical Ventilator 45 106 31 45 07/21/19 19:30 106 21 152/79 (103) 100 07/21/19 19:00 141/94 07/21/19 19:00 24 141/94 Mechanical Ventilator 45 07/21/19 19:00 99 22 143/106 (118) 100 07/21/19 18:30 101 24 138/79 (98) 100 07/21/19 18:00 155/71 07/21/19 18:00 24 155/71 Mechanical Ventilator 45 07/21/19 18:00 92 22 131/68 (89) 100 07/21/19 17:30 102 24 94/66 (75) 100 07/21/19 17:00 115/77 07/21/19 17:00 24 115/77 Mechanical Ventilator 45 07/21/19 17:00 96 25 99/58 (72) 100 07/21/19 16:30 94 12 116/67 (83) 100 07/21/19 16:00 45 07/21/19 16:00 Mechanical Ventilator 07/21/19 16:00 98 07/21/19 16:00 99.3 90 26 96/59 (71) 100 07/21/19 16:00 96/59 07/21/19 16:00 24 96/59 Mechanical Ventilator 45 07/21/19 15:30 84 27 117/67 (84) 100 07/21/19 15:14 92 26 100 Mechanical Ventilator 45 91 26 50 07/21/19 15:00 90 27 98/63 (75) 100 07/21/19 15:00 98/63 07/21/19 15:00 24 98/63 Mechanical Ventilator 45 07/21/19 14:30 88 26 106/70 (82) 100 07/21/19 14:26 24 111/77 Mechanical Ventilator 45 07/21/19 14:00 94 24 135/80 (98) 100 07/21/19 14:00 135/80 07/21/19 14:00 24 135/80 Mechanical Ventilator 45 07/21/19 13:45 92 26 132/70 (90) 100 07/21/19 13:30 136/70 07/21/19 13:30 24 136/70 Mechanical Ventilator 45 07/21/19 13:30 93 23 136/70 (92) 100 07/21/19 13:15 86 26 141/72 (95) 100 07/21/19 13:00 89 24 130/80 (97) 100 07/21/19 13:00 130/80 07/21/19 13:00 24 130/80 Mechanical Ventilator 45 07/21/19 12:30 84 26 131/81 (98) 100 07/21/19 12:00 97.5 87 25 144/88 (106) 100 07/21/19 12:00 45 07/21/19 12:00 Mechanical Ventilator 07/21/19 12:00 91 07/21/19 12:00 144/88 07/21/19 12:00 28 144/88 Mechanical Ventilator 45 07/21/19 11:30 91 26 136/75 (95) 100 Intake and Output 07/21/19 07/22/19 19:00 07:00 Intake Total 1089.375 ml 1017.5 ml Balance 1089.375 ml 1017.5 ml IV Total 489.375 ml 397.5 ml Tube Feeding 420 ml 420 ml Other 180 ml 200 ml # Bowel Movements 3 Laboratory Tests 07/22/19 04:00: White Blood Count 25.9*H, Red Blood Count 3.52L, Hemoglobin 10.2L, Hematocrit 31.1L, Mean Corpuscular Volume 88, Mean Corpuscular Hemoglobin 29.0, Mean Corpuscular Hemoglobin Concent 32.9, Red Cell Distribution Width 15.9H, Platelet Count 315, Mean Platelet Volume 6.7, Neutrophils (%) (Auto) , Lymphocytes (%) (Auto) , Monocytes (%) (Auto) , Eosinophils (%) (Auto) , Basophils (%) (Auto) , Differential Total Cells Counted 100, Neutrophils % ( Manual) 92H, Lymphocytes % (Manual) 6L, Monocytes % (Manual) 2, Eosinophils % ( Manual) 0, Basophils % (Manual) 0, Band Neutrophils 0, Platelet Estimate Adequate, Platelet Morphology Normal, Hypochromasia 1+, Anisocytosis 1+, Sodium Level 134L, Potassium Level 3.7, Chloride Level 92L, Carbon Dioxide Level 26, Anion Gap 16H, Blood Urea Nitrogen 81H, Creatinine 9.0H, Estimat Glomerular Filtration Rate 5.9, Glucose Level 289H, Calcium Level 9.3, Phosphorus Level 3.7 , Magnesium Level 2.5H, Total Bilirubin 0.4, Aspartate Amino Transf (AST/SGOT) 20, Alanine Aminotransferase (ALT/SGPT) 12, Alkaline Phosphatase 179H, C- Reactive Protein, Quantitative 7.0H, Pro-B-Type Natriuretic Peptide 68738F, Total Protein 8.4H, Albumin 2.7L, Globulin 5.7, Albumin/Globulin Ratio 0.5L, Random Vancomycin Level 24.1 Height (Feet): 6 Height (Inches): 1.00 Weight (Pounds): 185 General Appearance: no apparent distress EENT: normal ENT inspection Neck: supple Cardiovascular: normal rate Respiratory/Chest: decreased breath sounds Abdomen: normal bowel sounds, non tender, soft Extremities: non-tender Marito Ramires MD Jul 22, 2019 11:03
[2019-07-22] MEDS: Cefepime 500mg/D5W 55ml IV SCH ×2 (11:58)
--- NOTE | 2019-07-22 13:19 | Infectious Diseases Prog Note ---
Assessment/Plan Assessment/Plan IMPRESSION: 1. COVID19 pneumonia Positive: 05/27, 05/31 , 06/05, 06/09 ,06/17, 06/19, 06/23, 06/27, 07/03, 07/15 2. MRSA carrier. 3. Chronic kidney disease , end-stage renal disease. 4. COPD. 5. Hypertension. 6. Anemia. 7. Hypothyroidism. 8. Hyperlipidemia. 9. Major depression. 10. Leukocytosis 11. Hypotension 12. Hepatitis C 13. Hyperuricemia 14. Diarrhea 15. septic shock 16. Leukocytosis worsening 17. Pneumonia with Staph aureus ( MRSA) 18. Bacteremia with gram positive cocci RECOMMENDATIONS: Will f/u Sputum culture & blood culture Discontinue Levaquin & Cefepime Continue IV Vancomycin Consider removal of central line Subjective ROS Limited/Unobtainable: Yes Constitutional: Denies: fever Allergies: Coded Allergies: No Known Allergies (Unverified , 05/28/19) Objective Vital Signs Last 24 Hour Vital Signs Date Time Temp Pulse Resp B/P (MAP) Pulse Ox O2 Delivery O2 Flow Rate FiO2 07/22/19 11:10 81 28 100 Mechanical Ventilator 45 78 28 45 07/22/19 11:00 81 25 126/65 (85) 100 07/22/19 10:30 80 26 130/66 (87) 100 07/22/19 10:00 84 26 135/79 (97) 100 07/22/19 09:30 78 26 130/77 (94) 100 07/22/19 09:00 77 26 136/64 (88) 100 07/22/19 08:30 80 26 124/71 (88) 100 07/22/19 08:00 45 07/22/19 08:00 99.7 82 24 141/63 (89) 100 07/22/19 08:00 125/67 07/22/19 08:00 24 125/67 Mechanical Ventilator 45 07/22/19 07:30 81 26 120/62 (81) 100 07/22/19 07:10 81 26 100 Mechanical Ventilator 45 81 26 45 07/22/19 07:00 119/68 07/22/19 07:00 26 119/62 Mechanical Ventilator 45 07/22/19 07:00 81 25 125/67 (86) 100 07/22/19 06:59 26 121/58 Mechanical Ventilator 45 07/22/19 06:30 80 26 105/62 (76) 100 07/22/19 06:00 85 26 126/78 (94) 100 07/22/19 06:00 126/78 07/22/19 06:00 26 126/78 Mechanical Ventilator 45 07/22/19 05:30 82 25 125/68 (87) 100 07/22/19 05:23 136/72 07/22/19 05:00 76 26 109/62 (78) 100 07/22/19 05:00 109/62 07/22/19 05:00 26 109/62 Mechanical Ventilator 45 07/22/19 04:30 81 26 114/66 (82) 100 07/22/19 04:00 45 07/22/19 04:00 99.1 80 26 110/64 (79) 100 07/22/19 04:00 81 07/22/19 04:00 Mechanical Ventilator 07/22/19 03:30 80 26 118/61 (80) 100 07/22/19 03:00 83 25 126/67 (86) 100 07/22/19 03:00 126/67 07/22/19 03:00 26 126/67 Mechanical Ventilator 45 07/22/19 02:59 90 26 100 Mechanical Ventilator 45 92 26 45 07/22/19 02:30 86 28 130/64 (86) 98 07/22/19 02:00 133/64 07/22/19 02:00 26 133/64 Mechanical Ventilator 45 07/22/19 02:00 88 24 133/64 (87) 100 07/22/19 01:30 83 26 109/68 (82) 100 07/22/19 01:00 81 28 115/66 (82) 100 07/22/19 01:00 115/66 07/22/19 01:00 26 115/66 Mechanical Ventilator 45 07/22/19 00:30 87 27 105/66 (79) 100 07/22/19 00:00 Mechanical Ventilator 07/22/19 00:00 97.9 91 25 131/78 (95) 100 07/22/19 00:00 131/78 07/22/19 00:00 26 131/78 Mechanical Ventilator 45 07/21/19 23:30 91 25 113/87 (96) 100 07/21/19 23:08 96 32 100 Mechanical Ventilator 45 100 31 45 07/21/19 23:00 146/98 07/21/19 23:00 24 146/98 Mechanical Ventilator 45 07/21/19 23:00 96 24 146/98 (114) 100 07/21/19 22:30 88 31 101/59 (73) 100 07/21/19 22:00 85 26 93/67 (76) 100 07/21/19 22:00 93/67 07/21/19 22:00 26 93/67 Mechanical Ventilator 45 07/21/19 21:30 88 26 86/60 (69) 100 07/21/19 21:00 96/56 07/21/19 21:00 26 96/56 Mechanical Ventilator 45 07/21/19 21:00 105 23 96/56 (69) 100 07/21/19 20:30 97 30 103/81 (88) 100 07/21/19 20:00 105 07/21/19 20:00 123/98 07/21/19 20:00 27 123/98 Mechanical Ventilator 45 07/21/19 20:00 97.9 104 24 123/98 (106) 100 07/21/19 20:00 Mechanical Ventilator 07/21/19 20:00 45 07/21/19 19:31 105 31 100 Mechanical Ventilator 45 106 31 45 07/21/19 19:30 106 21 152/79 (103) 100 07/21/19 19:00 141/94 07/21/19 19:00 24 141/94 Mechanical Ventilator 45 07/21/19 19:00 99 22 143/106 (118) 100 07/21/19 18:30 101 24 138/79 (98) 100 07/21/19 18:00 155/71 07/21/19 18:00 24 155/71 Mechanical Ventilator 45 07/21/19 18:00 92 22 131/68 (89) 100 07/21/19 17:30 102 24 94/66 (75) 100 07/21/19 17:00 115/77 07/21/19 17:00 24 115/77 Mechanical Ventilator 45 07/21/19 17:00 96 25 99/58 (72) 100 07/21/19 16:30 94 12 116/67 (83) 100 07/21/19 16:00 45 07/21/19 16:00 Mechanical Ventilator 07/21/19 16:00 98 07/21/19 16:00 99.3 90 26 96/59 (71) 100 07/21/19 16:00 96/59 07/21/19 16:00 24 96/59 Mechanical Ventilator 45 07/21/19 15:30 84 27 117/67 (84) 100 07/21/19 15:14 92 26 100 Mechanical Ventilator 45 91 26 50 07/21/19 15:00 90 27 98/63 (75) 100 07/21/19 15:00 98/63 07/21/19 15:00 24 98/63 Mechanical Ventilator 45 07/21/19 14:30 88 26 106/70 (82) 100 07/21/19 14:26 24 111/77 Mechanical Ventilator 45 07/21/19 14:00 94 24 135/80 (98) 100 07/21/19 14:00 135/80 07/21/19 14:00 24 135/80 Mechanical Ventilator 45 07/21/19 13:45 92 26 132/70 (90) 100 07/21/19 13:30 136/70 07/21/19 13:30 24 136/70 Mechanical Ventilator 45 07/21/19 13:30 93 23 136/70 (92) 100 Height (Feet): 6 Height (Inches): 1.00 Weight (Pounds): 185 HEENT: status post trach Respiratory/Chest: other - on ventilator Cardiovascular: normal rate, other - central & HD line Abdomen: soft, non tender, other - s/p GT Extremities: no edema Microbiology Date/Time Source Procedure Growth Status 07/21/19 04:00 Blood Blood Culture - Preliminary NO GROWTH AFTER 24 HOURS Resulted 07/21/19 04:00 Blood Blood Culture - Preliminary NO GROWTH AFTER 24 HOURS Resulted 07/20/19 13:00 Blood Blood Culture - Preliminary Resulted 07/20/19 13:00 Blood Blood Culture - Preliminary Resulted 07/20/19 02:00 Sputum Gram Stain - Final Resulted 07/20/19 02:00 Sputum Culture - Preliminary Staphylococcus Aureus - Mrsa Resulted Laboratory Tests Test 07/22/19 04:00 White Blood Count 25.9 K/UL (4.8-10.8) *H Red Blood Count 3.52 M/UL (4.70-6.10) L Hemoglobin 10.2 G/DL (14.2-18.0) L Hematocrit 31.1 % (42.0-52.0) L Mean Corpuscular Volume 88 FL (80-99) Mean Corpuscular Hemoglobin 29.0 PG (27.0-31.0) Mean Corpuscular Hemoglobin Concent 32.9 G/DL (32.0-36.0) Red Cell Distribution Width 15.9 % (11.6-14.8) H Platelet Count 315 K/UL (150-450) Mean Platelet Volume 6.7 FL (6.5-10.1) Neutrophils (%) (Auto) % (45.0-75.0) Lymphocytes (%) (Auto) % (20.0-45.0) Monocytes (%) (Auto) % (1.0-10.0) Eosinophils (%) (Auto) % (0.0-3.0) Basophils (%) (Auto) % (0.0-2.0) Differential Total Cells Counted 100 Neutrophils % (Manual) 92 % (45-75) H Lymphocytes % (Manual) 6 % (20-45) L Monocytes % (Manual) 2 % (1-10) Eosinophils % (Manual) 0 % (0-3) Basophils % (Manual) 0 % (0-2) Band Neutrophils 0 % (0-8) Platelet Estimate Adequate Platelet Morphology Normal Hypochromasia 1+ Anisocytosis 1+ Sodium Level 134 MMOL/L (136-145) L Potassium Level 3.7 MMOL/L (3.5-5.1) Chloride Level 92 MMOL/L (98-107) L Carbon Dioxide Level 26 MMOL/L (21-32) Anion Gap 16 mmol/L (5-15) H Blood Urea Nitrogen 81 mg/dL (7-18) H Creatinine 9.0 MG/DL (0.55-1.30) H Estimat Glomerular Filtration Rate 5.9 mL/min (>60) Glucose Level 289 MG/DL (74-106) H Calcium Level 9.3 MG/DL (8.5-10.1) Phosphorus Level 3.7 MG/DL (2.5-4.9) Magnesium Level 2.5 MG/DL (1.8-2.4) H Total Bilirubin 0.4 MG/DL (0.2-1.0) Aspartate Amino Transf (AST/SGOT) 20 U/L (15-37) Alanine Aminotransferase (ALT/SGPT) 12 U/L (12-78) Alkaline Phosphatase 179 U/L (46-116) H C-Reactive Protein, Quantitative 7.0 mg/dL (0.00-0.90) H Pro-B-Type Natriuretic Peptide 13695 pg/mL (0-125) H Total Protein 8.4 G/DL (6.4-8.2) H Albumin 2.7 G/DL (3.4-5.0) L Globulin 5.7 g/dL Albumin/Globulin Ratio 0.5 (1.0-2.7) L Random Vancomycin Level 24.1 ug/mL Current Medications Medications (Trade) Dose Ordered Sig/Anthony Route PRN Reason Start Time Stop Time Status Last Admin Dose Admin Acetaminophen (Tylenol) 650 mg Q4H PRN NG For Pain 07/11/19 08:00 08/10/19 07:59 07/20/19 18:21 Albuterol Sulfate (Proventil MDI) 2 puff Q4HRT INH 06/06/19 23:00 08/30/19 18:59 07/22/19 11:10 Cefepime HCl 500 mg/Dextrose 55 ml @ 110 mls/hr Q24H IV 07/20/19 12:00 07/27/19 11:59 07/22/19 11:58 Chlorhexidine Gluconate (Michelle-Hex 2%) 1 applic DAILY@2000 TOPIC 06/07/19 20:00 09/05/19 19:59 07/21/19 20:04 Dextrose (Dextrose 50%) 25 ml Q30M PRN IV Hypoglycemia 06/20/19 19:30 09/18/19 19:29 Dextrose (Dextrose 50%) 50 ml Q30M PRN IV Hypoglycemia 06/20/19 19:30 09/18/19 19:29 Dopamine HCl/ Dextrose 250 ml @ 0 mls/hr Q24H PRN IV For hypotension 06/13/19 08:15 09/11/19 08:14 07/17/19 08:46 Enoxaparin Sodium (Lovenox) 30 mg DAILY SUBQ 06/07/19 09:00 08/27/19 08:59 07/22/19 09:19 Epoetin Aftab (Epoetin Aftab(ESRD on dialysis)) 10,000 unit FRI-FRI-FRI SUBQ 06/07/19 21:00 08/31/19 20:59 6/8/20 21:00 Fentanyl Citrate 250 ml @ 0 mls/hr Q24H IV 07/19/19 14:06 10/17/19 14:05 07/22/19 06:59 Haloperidol Lactate 5 mg/ Dextrose 56 ml @ 224 mls/hr Q6H PRN IVPB Agitation 07/11/19 15:00 08/25/19 14:59 07/15/19 02:36 Hydralazine HCl (Apresoline) 10 mg Q4H PRN IV Blood pressure over 160 systol 06/07/19 10:15 09/05/19 10:14 Insulin Aspart (NovoLOG) EVERY 6 HOURS SUBQ 06/21/19 00:00 09/19/19 00:00 07/22/19 12:47 Levofloxacin (Levaquin) 500 mg EVERY OTHER DAY GT 07/21/19 09:00 07/28/19 08:59 07/21/19 08:14 Midodrine (Pro-Amatine) 10 mg Q8HR ORAL 07/17/19 14:00 10/15/19 10:29 07/22/19 12:45 Norepinephrine Bitartrate 16 mg/ Dextrose 500 ml @ 0 mls/hr Q24H IV 07/20/19 22:00 08/19/19 21:59 07/22/19 05:23 Sevelamer Carbonate (Renvela) 2,400 mg Q6HR NG 07/14/19 12:00 10/12/19 13:59 07/22/19 12:00 Vancomycin HCl ([facility] pharmacy to dose) 1 ea DAILY PRN MISC Per rx protocol 07/20/19 10:45 08/19/19 10:44 Ted Leyva MD Jul 22, 2019 13:19
--- NOTE | 2019-07-22 14:20 | Surgery Progress Note ---
Surgery Progress Note Subjective Procedure Performed Right femoral temporary hemodialysis catheter removal Additional Comments worsening leukocytosis sepsis febrile on pressors discussed with ID Objective Last 24 Hour Vital Signs Date Time Temp Pulse Resp B/P (MAP) Pulse Ox O2 Delivery O2 Flow Rate FiO2 07/22/19 13:30 75 26 99/59 (72) 100 07/22/19 13:00 80 25 100/56 (71) 100 07/22/19 13:00 100/56 07/22/19 13:00 25 100/56 Mechanical Ventilator 45 07/22/19 12:30 91 25 111/66 (81) 100 07/22/19 12:15 89 25 120/67 (84) 92 07/22/19 12:00 Mechanical Ventilator 07/22/19 12:00 99.6 78 27 147/65 (92) 100 07/22/19 12:00 45 07/22/19 12:00 147/65 07/22/19 12:00 27 120/67 Mechanical Ventilator 45 07/22/19 11:30 79 25 130/77 (94) 100 07/22/19 11:10 81 28 100 Mechanical Ventilator 45 78 28 45 07/22/19 11:00 81 25 126/65 (85) 100 07/22/19 11:00 126/65 07/22/19 11:00 25 126/65 Mechanical Ventilator 45 07/22/19 10:30 80 26 130/66 (87) 100 07/22/19 10:00 84 26 135/79 (97) 100 07/22/19 10:00 135/79 07/22/19 10:00 26 135/79 Mechanical Ventilator 45 07/22/19 09:30 78 26 130/77 (94) 100 07/22/19 09:00 77 26 136/64 (88) 100 07/22/19 09:00 136/64 07/22/19 09:00 27 147/65 Mechanical Ventilator 45 07/22/19 08:30 80 26 124/71 (88) 100 07/22/19 08:00 45 07/22/19 08:00 99.7 82 24 141/63 (89) 100 07/22/19 08:00 125/67 07/22/19 08:00 24 125/67 Mechanical Ventilator 45 07/22/19 08:00 Mechanical Ventilator 07/22/19 07:30 81 26 120/62 (81) 100 07/22/19 07:10 81 26 100 Mechanical Ventilator 45 81 26 45 07/22/19 07:00 119/68 07/22/19 07:00 26 119/62 Mechanical Ventilator 45 07/22/19 07:00 81 25 125/67 (86) 100 07/22/19 06:59 26 121/58 Mechanical Ventilator 45 07/22/19 06:30 80 26 105/62 (76) 100 07/22/19 06:00 85 26 126/78 (94) 100 07/22/19 06:00 126/78 07/22/19 06:00 26 126/78 Mechanical Ventilator 45 07/22/19 05:30 82 25 125/68 (87) 100 07/22/19 05:23 136/72 07/22/19 05:00 76 26 109/62 (78) 100 07/22/19 05:00 109/62 07/22/19 05:00 26 109/62 Mechanical Ventilator 45 07/22/19 04:30 81 26 114/66 (82) 100 07/22/19 04:00 45 07/22/19 04:00 99.1 80 26 110/64 (79) 100 07/22/19 04:00 81 07/22/19 04:00 Mechanical Ventilator 07/22/19 03:30 80 26 118/61 (80) 100 07/22/19 03:00 83 25 126/67 (86) 100 07/22/19 03:00 126/67 07/22/19 03:00 26 126/67 Mechanical Ventilator 45 07/22/19 02:59 90 26 100 Mechanical Ventilator 45 92 26 45 07/22/19 02:30 86 28 130/64 (86) 98 07/22/19 02:00 133/64 07/22/19 02:00 26 133/64 Mechanical Ventilator 45 07/22/19 02:00 88 24 133/64 (87) 100 07/22/19 01:30 83 26 109/68 (82) 100 07/22/19 01:00 81 28 115/66 (82) 100 07/22/19 01:00 115/66 07/22/19 01:00 26 115/66 Mechanical Ventilator 45 07/22/19 00:30 87 27 105/66 (79) 100 07/22/19 00:00 Mechanical Ventilator 07/22/19 00:00 97.9 91 25 131/78 (95) 100 07/22/19 00:00 131/78 07/22/19 00:00 26 131/78 Mechanical Ventilator 45 07/21/19 23:30 91 25 113/87 (96) 100 07/21/19 23:08 96 32 100 Mechanical Ventilator 45 100 31 45 07/21/19 23:00 146/98 07/21/19 23:00 24 146/98 Mechanical Ventilator 45 07/21/19 23:00 96 24 146/98 (114) 100 07/21/19 22:30 88 31 101/59 (73) 100 07/21/19 22:00 85 26 93/67 (76) 100 07/21/19 22:00 93/67 07/21/19 22:00 26 93/67 Mechanical Ventilator 45 07/21/19 21:30 88 26 86/60 (69) 100 07/21/19 21:00 96/56 07/21/19 21:00 26 96/56 Mechanical Ventilator 45 07/21/19 21:00 105 23 96/56 (69) 100 07/21/19 20:30 97 30 103/81 (88) 100 07/21/19 20:00 105 07/21/19 20:00 123/98 07/21/19 20:00 27 123/98 Mechanical Ventilator 45 07/21/19 20:00 97.9 104 24 123/98 (106) 100 07/21/19 20:00 Mechanical Ventilator 07/21/19 20:00 45 07/21/19 19:31 105 31 100 Mechanical Ventilator 45 106 31 45 07/21/19 19:30 106 21 152/79 (103) 100 07/21/19 19:00 141/94 07/21/19 19:00 24 141/94 Mechanical Ventilator 45 07/21/19 19:00 99 22 143/106 (118) 100 07/21/19 18:30 101 24 138/79 (98) 100 07/21/19 18:00 155/71 07/21/19 18:00 24 155/71 Mechanical Ventilator 45 07/21/19 18:00 92 22 131/68 (89) 100 07/21/19 17:30 102 24 94/66 (75) 100 07/21/19 17:00 115/77 07/21/19 17:00 24 115/77 Mechanical Ventilator 45 07/21/19 17:00 96 25 99/58 (72) 100 07/21/19 16:30 94 12 116/67 (83) 100 07/21/19 16:00 45 07/21/19 16:00 Mechanical Ventilator 07/21/19 16:00 98 07/21/19 16:00 99.3 90 26 96/59 (71) 100 07/21/19 16:00 96/59 07/21/19 16:00 24 96/59 Mechanical Ventilator 45 07/21/19 15:30 84 27 117/67 (84) 100 07/21/19 15:14 92 26 100 Mechanical Ventilator 45 91 26 50 07/21/19 15:00 90 27 98/63 (75) 100 07/21/19 15:00 98/63 07/21/19 15:00 24 98/63 Mechanical Ventilator 45 07/21/19 14:30 88 26 106/70 (82) 100 07/21/19 14:26 24 111/77 Mechanical Ventilator 45 I&O Intake and Output 07/21/19 07/22/19 19:00 07:00 Intake Total 1089.375 ml 1017.5 ml Balance 1089.375 ml 1017.5 ml IV Total 489.375 ml 397.5 ml Tube Feeding 420 ml 420 ml Other 180 ml 200 ml # Bowel Movements 3 Dressing: other Wound: other Drains: other Cardiovascular: RSR Respiratory: decreased breath sounds Abdomen: soft, non-tender, present bowel sounds Extremities: no cyanosis Laboratory Tests Test 07/22/19 04:00 White Blood Count 25.9 K/UL (4.8-10.8) *H Red Blood Count 3.52 M/UL (4.70-6.10) L Hemoglobin 10.2 G/DL (14.2-18.0) L Hematocrit 31.1 % (42.0-52.0) L Mean Corpuscular Volume 88 FL (80-99) Mean Corpuscular Hemoglobin 29.0 PG (27.0-31.0) Mean Corpuscular Hemoglobin Concent 32.9 G/DL (32.0-36.0) Red Cell Distribution Width 15.9 % (11.6-14.8) H Platelet Count 315 K/UL (150-450) Mean Platelet Volume 6.7 FL (6.5-10.1) Neutrophils (%) (Auto) % (45.0-75.0) Lymphocytes (%) (Auto) % (20.0-45.0) Monocytes (%) (Auto) % (1.0-10.0) Eosinophils (%) (Auto) % (0.0-3.0) Basophils (%) (Auto) % (0.0-2.0) Differential Total Cells Counted 100 Neutrophils % (Manual) 92 % (45-75) H Lymphocytes % (Manual) 6 % (20-45) L Monocytes % (Manual) 2 % (1-10) Eosinophils % (Manual) 0 % (0-3) Basophils % (Manual) 0 % (0-2) Band Neutrophils 0 % (0-8) Platelet Estimate Adequate Platelet Morphology Normal Hypochromasia 1+ Anisocytosis 1+ Sodium Level 134 MMOL/L (136-145) L Potassium Level 3.7 MMOL/L (3.5-5.1) Chloride Level 92 MMOL/L (98-107) L Carbon Dioxide Level 26 MMOL/L (21-32) Anion Gap 16 mmol/L (5-15) H Blood Urea Nitrogen 81 mg/dL (7-18) H Creatinine 9.0 MG/DL (0.55-1.30) H Estimat Glomerular Filtration Rate 5.9 mL/min (>60) Glucose Level 289 MG/DL (74-106) H Calcium Level 9.3 MG/DL (8.5-10.1) Phosphorus Level 3.7 MG/DL (2.5-4.9) Magnesium Level 2.5 MG/DL (1.8-2.4) H Total Bilirubin 0.4 MG/DL (0.2-1.0) Aspartate Amino Transf (AST/SGOT) 20 U/L (15-37) Alanine Aminotransferase (ALT/SGPT) 12 U/L (12-78) Alkaline Phosphatase 179 U/L (46-116) H C-Reactive Protein, Quantitative 7.0 mg/dL (0.00-0.90) H Pro-B-Type Natriuretic Peptide 79120 pg/mL (0-125) H Total Protein 8.4 G/DL (6.4-8.2) H Albumin 2.7 G/DL (3.4-5.0) L Globulin 5.7 g/dL Albumin/Globulin Ratio 0.5 (1.0-2.7) L Random Vancomycin Level 24.1 ug/mL Plan Problems: (1) Suspected COVID-19 virus infection (2) HTN (hypertension) (3) CASSANDRA (acute kidney injury) Assessment & Plan: Needs urgent HD needs access patient okay and consented see note will follow with recs new line placed discussed with team and nephrology HD line functional when checked has TPA now please use appropriately Cathflo used again this flow during dialysis on 430 was low. Will monitor may need line change 5/ plan for HD as per renal may need to take fluid off with HD edema anasarca dressings saturated and changed will monitor cont with HD IJ left line placed for HD given extent of prior line in place. leukocytosis blood cx negative may need to change out line new line okay HD going well (4) Anemia in chronic kidney disease (CKD) (5) Anemia (6) Renal failure (7) Suspected COVID-19 virus infection Assessment & Plan: Pt deconditioned and despite all skin preventions Pt noted to have developed several pressure injuries. . Stable dry eschar noted to clefts of R and L ears. No erythema noted . DTPI noted to L trochanter. Base of injury is maroon in colour with marginal erythema along borders. Partially opened DTPI Sacrum, R and L Buttocks. Base of wound is maroon with two small open wounds L sacrum and L buttocks. Pt has an APM/MOMO Mattress overlay and is being positioned with pillows as per tolerance and within protocols. worsening despite medical efforts will cont to provide therapy Tx.Plan: Apply Cavilon Skin Barrier to both ears Daily and prn. Apply Moisture Barrier Paste to Sacrum,R and L Buttocks. Cover with Optifoam drsgs. Change every 3 days and PRN. Apply Cavilon Skin Barrier to R and L trochanter. Cover each site with Optifoam drsgs.Change every 7 days and PRN. Apply Cavilon Skin Barrier to both heels. Cover each heel with Optifoam drsg. Change every 7 days and prn. Off-load heels with pillow. Reposition at least every 2hours or as tolerated. APM/MOMO Mattress overlay. (8) COVID-19 Assessment & Plan: COVID + c diff negative febrile leukocytosis renal insufficiency see above cont resp care Rx as per ID worsening on vent support now cxr noted on pressors prognosis guarded repeat covid ++ weaning vent and pressors off slowly showing improvement slowly recovering will need trach as unable to wean vent safely called and spoke with country conservatorship. consent obtained s/p trach pending peg worsening on levo max (9) Sepsis Assessment & Plan: worsening leukocytosis febrile on pressors discussed with ID. lines evaluated and clean. he is septic on pressors and needs central access in difficult venous access patient blood cultures negative will monitor Yaniv Mast Jul 22, 2019 14:20
--- NOTE | 2019-07-22 16:40 | Hematology/Onc Progress Note ---
Assessment/Plan Assessment/Plan Assessment and Recs: # Anemia of chronic disease, likely related ot underlying kidney disease has COIVD19++++++ --> hgb trend 9-->8-->7.3-->7.9-->6.8->9.5-->10->8.3-->7.7-->7.1-->8.9->8.8->7.7 -->8.1 ->7.9-->7.7 -->8.2-->8.1 -->7.9-->8.5 -->9->9.2-->9.5-->10.7 -->9.8--> 10.2-->11.8 -->11.9 --> transfuse as needed, hgb goal >7 --> no evidence of hemolysis --> peripheral smear has been reviewed --> epogen started 3 x a week ==>> transfuse 06/08, 06/15 # Leukocytosis likely related to suspected COVID-19 virus infection --> completed plaquenil --> trend smear as needed --> wbc trend: 4-->11-->14.5-->21-->26-->21->24--.28-->23-->19-->16.2-->21--> 11.2 -->12.5-->12.3-->12.4-->18.5-->18.5-->17->13-->18.2-->22.2-->25 --> pulm is aware --> on abx cefepime/vanc->zosyn/vanc-->dom/vanc-->dom-->levaquin/cefepime,--> vanc --> pressors as needed --> 06/27 covid 19++ --> pressors as needed in icu # Thrombocytopenia/Lymphopenia --> likely related to covid19 --> plt 129k-->186k-->251-->285-->384 -->430-->539-->515-->447-->451-->404--> 544 # Respiratory failure with covid19+ --> s/p vent/trach --> weaning # Possible Pneumonia --> abx completed --> 07/13 cxr: Improved right lung infiltrates. # Cardiomegaly # Transaminitis with Elevated AST # COPD # Chronic Kidney Disease --> per renal hd --> s/p right femoral cath 07/02 # Hypertension # Dvt ppx lovenox # peg Appreciate consultation and ernesto Rn Subjective Endocrine: Denies: no symptoms, excessive sweating, flushing, intolerance to cold, intolerance to heat, increased hunger, increased thirst, increased urine, unexplained weight gain, unexplained weight loss, other Allergies: Coded Allergies: No Known Allergies (Unverified , 05/28/19) All Systems: reviewed and negative except above Subjective 06/01 nv, extremely agitated, not allowing labs draws, no night sweats, cbc ordered 06/02 confused, restraints, on abx and plaquenil, hgb 7.9, nrb 15 L 06/03 is with nonrebreather, but not compliant, remains confused 06/05 no bleeding, labs noted, no major bleeding, otherwise comfortable 06/06 labs reviewed, no bleeding, meds noted, no night sweats, on levo and nonrebreather 06/07 labs noted, no bleeding, meds reviewed, no bleeding, wbc higher 06/08 to get 2 units prbc, no night sweats, meds reviewed 06/09 is on cefepime and vanc, labs noted, ernesto Rn, no bleeding 06/10 no major changes, labs reviewed, wbc 28k, on abx, cefepime 06/12 remains in icu, labs noted, no night sweats or bleeding 06/13 sluggish pupils, remains agitated, per psych, no bleding, on vent, wbc sitll high 06/14 still confused, remains on vent, with ng, running nepro, on pressors 06/15 icu, febrile, non verbal, hgb 7.1, blood pending, completed plaq 06/16 remains in the icu, nonverbal, plan for hd tomorrow, ernesto rn 06/17 in icu, on pressor, nonverbal, on abx, no bleeding 06/19 no bleeding, nonverbal in icu, hgb is 7.7 06/20 on zosyn, tube feeds, vent, labs noted, in icu, nv 06/21 gettng hd as per renal, in icu, nv, no bleeding, tfs 06/22 icu, cxr with slight improvement, cooling blanket, weaning today 06/23 wewaning, in icu, on vent, abx, and pressors as needed, labs noted 06/24 failed weaning, off abx, completed plaquenil, hgb 8.1 06/26 icu, weaning for this am, afebrile, hgb 8 06/27 in icu, remains comotose, weaning started on peep, no night sweats 06/28 weaning today, off abx, restraints, no distress, h/h stable 06/29 covid 19+, failed weaning, no blood transfusion needed 06/30 icu, on vent, labs reviewed, no distress 07/01 in icu, may need trach, remains on hd per renal, labs noted 07/02 s/p right fem cath, failed wean, no new orders, h/h stable 07/03 is somewhat more responsive, on abx, no bleeding, weaning and HD today 07/04 hd as per renal, weaning off vent, no bleeding today 07/05 obtunded, no bleding overnight, with hd for tomorrow noted, vanc 07/08 no events, remains with trach/vent, ernesto Rn, no bleeding, cbc is noted 07/09 no overnight events, peg for friday pending consent 07/10 off pressors, vent, restraints, labs reviewed 07/11 no acute events is on pressors, intubated, agitated still 07/12 is resting comfortably, no bleeding, emds reviewed and noted 07/13 icu, no events, trach, cxr reviewed, 07/14 is onv ent, tachypneic and tachycardic, labs noted 07/15 remains confused, intubated, ernesto Rn, no bleeding 07/17 icu, cxr improving infiltrates, levo gtt, airborne/contact isolation 07/18 is on broad spectrum abx, is on levaquin and cefepime, wbc 16 agitated 07/19 icu, levo gtt, cxr unchanged, tachy, hd thursday 07/20 sedated, safety restraints, labs reviewed 07/21 hd was done yesterday, lower pressor requirenements, wbc is worse, on abx Objective Objective Current Medications Medications (Trade) Dose Ordered Sig/Anthony Route PRN Reason Start Time Stop Time Status Last Admin Dose Admin Acetaminophen (Tylenol) 650 mg Q4H PRN NG For Pain 07/11/19 08:00 08/10/19 07:59 07/20/19 18:21 Albuterol Sulfate (Proventil MDI) 2 puff Q4HRT INH 06/06/19 23:00 08/30/19 18:59 07/22/19 15:10 Chlorhexidine Gluconate (Michelle-Hex 2%) 1 applic DAILY@2000 TOPIC 06/07/19 20:00 09/05/19 19:59 07/21/19 20:04 Dextrose (Dextrose 50%) 25 ml Q30M PRN IV Hypoglycemia 06/20/19 19:30 09/18/19 19:29 Dextrose (Dextrose 50%) 50 ml Q30M PRN IV Hypoglycemia 06/20/19 19:30 09/18/19 19:29 Dopamine HCl/ Dextrose 250 ml @ 0 mls/hr Q24H PRN IV For hypotension 06/13/19 08:15 09/11/19 08:14 07/17/19 08:46 Enoxaparin Sodium (Lovenox) 30 mg DAILY SUBQ 06/07/19 09:00 08/27/19 08:59 07/22/19 09:19 Epoetin Aftab (Epoetin Aftab(ESRD on dialysis)) 10,000 unit FRI-FRI-FRI SUBQ 06/07/19 21:00 08/31/19 20:59 07/19/19 21:00 Fentanyl Citrate 250 ml @ 0 mls/hr Q24H IV 07/19/19 14:06 10/17/19 14:05 07/22/19 06:59 Haloperidol Lactate 5 mg/ Dextrose 56 ml @ 224 mls/hr Q6H PRN IVPB Agitation 07/11/19 15:00 08/25/19 14:59 07/15/19 02:36 Hydralazine HCl (Apresoline) 10 mg Q4H PRN IV Blood pressure over 160 systol 06/07/19 10:15 09/05/19 10:14 Insulin Aspart (NovoLOG) EVERY 6 HOURS SUBQ 06/21/19 00:00 09/19/19 00:00 07/22/19 12:47 Midodrine (Pro-Amatine) 10 mg Q8HR ORAL 07/17/19 14:00 10/15/19 10:29 07/22/19 12:45 Norepinephrine Bitartrate 16 mg/ Dextrose 500 ml @ 0 mls/hr Q24H IV 07/20/19 22:00 08/19/19 21:59 07/22/19 05:23 Sevelamer Carbonate (Renvela) 2,400 mg Q6HR NG 07/14/19 12:00 10/12/19 13:59 07/22/19 12:00 [facility]com[facility] ([facility]) 1 ea DAILY PRN MISC Per rx protocol 07/20/19 10:45 08/19/19 10:44 Last 24 Hour Vital Signs Date Time Temp Pulse Resp B/P (MAP) Pulse Ox O2 Delivery O2 Flow Rate FiO2 07/22/19 16:00 Mechanical Ventilator 07/22/19 16:00 80 25 111/56 (74) 100 07/22/19 16:00 76 07/22/19 16:00 45 07/22/19 15:30 77 27 120/62 (81) 100 07/22/19 15:10 88 26 100 Mechanical Ventilator 45 88 26 45 07/22/19 15:00 72 26 89/54 (66) 100 07/22/19 14:30 80 21 116/58 (77) 100 07/22/19 14:00 79 22 122/59 (80) 100 07/22/19 13:30 75 26 99/59 (72) 100 07/22/19 13:00 80 25 100/56 (71) 100 07/22/19 13:00 100/56 07/22/19 13:00 25 100/56 Mechanical Ventilator 45 07/22/19 12:30 91 25 111/66 (81) 100 07/22/19 12:15 89 25 120/67 (84) 92 07/22/19 12:00 Mechanical Ventilator 07/22/19 12:00 99.6 78 27 147/65 (92) 100 07/22/19 12:00 45 07/22/19 12:00 78 07/22/19 12:00 147/65 07/22/19 12:00 27 120/67 Mechanical Ventilator 45 07/22/19 11:30 79 25 130/77 (94) 100 07/22/19 11:10 81 28 100 Mechanical Ventilator 45 78 28 45 07/22/19 11:00 81 25 126/65 (85) 100 07/22/19 11:00 126/65 07/22/19 11:00 25 126/65 Mechanical Ventilator 45 07/22/19 10:30 80 26 130/66 (87) 100 07/22/19 10:00 84 26 135/79 (97) 100 07/22/19 10:00 135/79 07/22/19 10:00 26 135/79 Mechanical Ventilator 45 07/22/19 09:30 78 26 130/77 (94) 100 07/22/19 09:00 77 26 136/64 (88) 100 07/22/19 09:00 136/64 07/22/19 09:00 27 147/65 Mechanical Ventilator 45 07/22/19 08:30 80 26 124/71 (88) 100 07/22/19 08:00 45 07/22/19 08:00 80 07/22/19 08:00 99.7 82 24 141/63 (89) 100 07/22/19 08:00 125/67 07/22/19 08:00 24 125/67 Mechanical Ventilator 45 07/22/19 08:00 Mechanical Ventilator 07/22/19 07:30 81 26 120/62 (81) 100 07/22/19 07:10 81 26 100 Mechanical Ventilator 45 81 26 45 07/22/19 07:00 119/68 07/22/19 07:00 26 119/62 Mechanical Ventilator 45 07/22/19 07:00 81 25 125/67 (86) 100 07/22/19 06:59 26 121/58 Mechanical Ventilator 45 07/22/19 06:30 80 26 105/62 (76) 100 07/22/19 06:00 85 26 126/78 (94) 100 07/22/19 06:00 126/78 07/22/19 06:00 26 126/78 Mechanical Ventilator 45 07/22/19 05:30 82 25 125/68 (87) 100 07/22/19 05:23 136/72 07/22/19 05:00 76 26 109/62 (78) 100 07/22/19 05:00 109/62 07/22/19 05:00 26 109/62 Mechanical Ventilator 45 07/22/19 04:30 81 26 114/66 (82) 100 07/22/19 04:00 45 07/22/19 04:00 99.1 80 26 110/64 (79) 100 07/22/19 04:00 81 07/22/19 04:00 Mechanical Ventilator 07/22/19 03:30 80 26 118/61 (80) 100 07/22/19 03:00 83 25 126/67 (86) 100 07/22/19 03:00 126/67 07/22/19 03:00 26 126/67 Mechanical Ventilator 45 07/22/19 02:59 90 26 100 Mechanical Ventilator 45 92 26 45 07/22/19 02:30 86 28 130/64 (86) 98 07/22/19 02:00 133/64 07/22/19 02:00 26 133/64 Mechanical Ventilator 45 07/22/19 02:00 88 24 133/64 (87) 100 07/22/19 01:30 83 26 109/68 (82) 100 07/22/19 01:00 81 28 115/66 (82) 100 07/22/19 01:00 115/66 07/22/19 01:00 26 115/66 Mechanical Ventilator 45 07/22/19 00:30 87 27 105/66 (79) 100 07/22/19 00:00 Mechanical Ventilator 07/22/19 00:00 97.9 91 25 131/78 (95) 100 07/22/19 00:00 131/78 07/22/19 00:00 26 131/78 Mechanical Ventilator 45 07/21/19 23:30 91 25 113/87 (96) 100 07/21/19 23:08 96 32 100 Mechanical Ventilator 45 100 31 45 07/21/19 23:00 146/98 07/21/19 23:00 24 146/98 Mechanical Ventilator 45 07/21/19 23:00 96 24 146/98 (114) 100 07/21/19 22:30 88 31 101/59 (73) 100 07/21/19 22:00 85 26 93/67 (76) 100 07/21/19 22:00 93/67 07/21/19 22:00 26 93/67 Mechanical Ventilator 45 07/21/19 21:30 88 26 86/60 (69) 100 07/21/19 21:00 96/56 07/21/19 21:00 26 96/56 Mechanical Ventilator 45 07/21/19 21:00 105 23 96/56 (69) 100 07/21/19 20:30 97 30 103/81 (88) 100 07/21/19 20:00 105 07/21/19 20:00 123/98 07/21/19 20:00 27 123/98 Mechanical Ventilator 45 07/21/19 20:00 97.9 104 24 123/98 (106) 100 07/21/19 20:00 Mechanical Ventilator 07/21/19 20:00 45 07/21/19 19:31 105 31 100 Mechanical Ventilator 45 106 31 45 07/21/19 19:30 106 21 152/79 (103) 100 07/21/19 19:00 141/94 07/21/19 19:00 24 141/94 Mechanical Ventilator 45 07/21/19 19:00 99 22 143/106 (118) 100 07/21/19 18:30 101 24 138/79 (98) 100 07/21/19 18:00 155/71 07/21/19 18:00 24 155/71 Mechanical Ventilator 45 07/21/19 18:00 92 22 131/68 (89) 100 07/21/19 17:30 102 24 94/66 (75) 100 07/21/19 17:00 115/77 07/21/19 17:00 24 115/77 Mechanical Ventilator 45 07/21/19 17:00 96 25 99/58 (72) 100 07/21/19 16:30 94 12 116/67 (83) 100 07/21/19 16:00 45 07/21/19 16:00 Mechanical Ventilator 07/21/19 16:00 98 07/21/19 16:00 99.3 90 26 96/59 (71) 100 07/21/19 16:00 96/59 07/21/19 16:00 24 96/59 Mechanical Ventilator 45 07/21/19 15:30 84 27 117/67 (84) 100 07/21/19 15:14 92 26 100 Mechanical Ventilator 45 91 26 50 07/21/19 15:00 90 27 98/63 (75) 100 07/21/19 15:00 98/63 07/21/19 15:00 24 98/63 Mechanical Ventilator 45 07/21/19 14:30 88 26 106/70 (82) 100 07/21/19 14:26 24 111/77 Mechanical Ventilator 45 07/21/19 14:00 94 24 135/80 (98) 100 07/21/19 14:00 135/80 07/21/19 14:00 24 135/80 Mechanical Ventilator 45 07/21/19 13:45 92 26 132/70 (90) 100 07/21/19 13:30 136/70 07/21/19 13:30 24 136/70 Mechanical Ventilator 45 07/21/19 13:30 93 23 136/70 (92) 100 07/21/19 13:15 86 26 141/72 (95) 100 07/21/19 13:00 89 24 130/80 (97) 100 07/21/19 13:00 130/80 07/21/19 13:00 24 130/80 Mechanical Ventilator 45 07/21/19 12:30 84 26 131/81 (98) 100 07/21/19 12:00 97.5 87 25 144/88 (106) 100 07/21/19 12:00 45 07/21/19 12:00 Mechanical Ventilator 07/21/19 12:00 91 07/21/19 12:00 144/88 07/21/19 12:00 28 144/88 Mechanical Ventilator 45 07/21/19 11:30 91 26 136/75 (95) 100 07/21/19 11:00 95 26 130/77 (94) 100 07/21/19 11:00 130/77 07/21/19 11:00 31 130/77 Mechanical Ventilator 45 07/21/19 10:53 92 26 100 Mechanical Ventilator 45 88 26 50 07/21/19 10:30 91 26 96/62 (73) 100 07/21/19 10:00 103/64 07/21/19 10:00 26 103/64 Mechanical Ventilator 45 07/21/19 10:00 90 26 103/64 (77) 100 07/21/19 09:30 89 26 102/70 (81) 100 07/21/19 09:08 100 07/21/19 09:05 45 07/21/19 09:00 89 29 121/79 (93) 100 07/21/19 09:00 121/79 07/21/19 09:00 29 121/79 Mechanical Ventilator 45 07/21/19 08:30 114 27 125/79 (94) 100 07/21/19 08:15 137/77 07/21/19 08:00 Mechanical Ventilator 07/21/19 08:00 137/77 07/21/19 08:00 26 137/77 Mechanical Ventilator 50 07/21/19 08:00 97.9 89 26 137/77 (97) 100 07/21/19 08:00 89 07/21/19 08:00 50 07/21/19 07:30 75 26 121/68 (85) 100 07/21/19 07:18 75 26 100 Mechanical Ventilator 50 78 28 50 07/21/19 07:00 114/68 07/21/19 07:00 26 114/68 Mechanical Ventilator 50 07/21/19 07:00 74 26 114/68 (83) 100 07/21/19 06:30 74 26 95/58 (70) 100 07/21/19 06:00 77 26 122/69 (86) 100 07/21/19 06:00 122/69 07/21/19 06:00 26 122/69 Mechanical Ventilator 26.0 50 07/21/19 05:30 74 28 144/73 (96) 100 07/21/19 05:00 126/70 07/21/19 05:00 26 126/70 Mechanical Ventilator 50 07/21/19 05:00 79 26 126/70 (88) 100 07/21/19 04:30 81 26 104/64 (77) 100 07/21/19 04:00 Mechanical Ventilator 07/21/19 04:00 50 07/21/19 04:00 117/85 07/21/19 04:00 24 117/85 Mechanical Ventilator 50 07/21/19 04:00 77 07/21/19 04:00 98.0 91 18 117/85 (96) 95 07/21/19 03:30 78 26 106/71 (83) 100 07/21/19 03:08 79 26 100 Mechanical Ventilator 50 82 27 50 07/21/19 03:00 131/70 07/21/19 03:00 26 131/70 Mechanical Ventilator 50 07/21/19 03:00 84 25 131/70 (90) 100 07/21/19 02:30 82 26 134/81 (98) 100 07/21/19 02:00 84 26 133/77 (95) 100 07/21/19 02:00 133/77 07/21/19 02:00 26 133/77 Mechanical Ventilator 50 07/21/19 01:30 87 26 140/82 (101) 100 07/21/19 01:00 93 28 148/83 (104) 07/21/19 01:00 154/81 07/21/19 01:00 26 154/81 Mechanical Ventilator 50 07/21/19 00:30 99 26 143/75 (97) 90 07/21/19 00:00 Mechanical Ventilator 07/21/19 00:00 50 07/21/19 00:00 100.0 95 25 157/84 (108) 100 07/21/19 00:00 157/84 07/21/19 00:00 26 157/84 Mechanical Ventilator 50 07/21/19 00:00 96 07/20/19 23:54 88 26 100 Mechanical Ventilator 50 88 26 50 07/20/19 23:30 84 26 126/74 (91) 100 07/20/19 23:30 126/74 07/20/19 23:00 84 63 131/74 (93) 07/20/19 23:00 26 156/78 Mechanical Ventilator 50 07/20/19 23:00 156/78 07/20/19 22:30 86 26 115/71 (86) 100 07/20/19 22:00 26 114/68 Mechanical Ventilator 50 07/20/19 22:00 114/68 07/20/19 22:00 91 26 114/68 (83) 100 07/20/19 21:30 98 26 106/62 (77) 100 07/20/19 21:00 26 100/60 Mechanical Ventilator 50 07/20/19 21:00 100/60 07/20/19 21:00 93 27 100/60 (73) 100 07/20/19 20:30 101 27 98/60 (73) 100 07/20/19 20:16 99 29 100 Mechanical Ventilator 50 100 29 50 07/20/19 20:00 102 07/20/19 20:00 50 07/20/19 20:00 Mechanical Ventilator 07/20/19 20:00 26 120/71 Mechanical Ventilator 50 07/20/19 20:00 120/71 07/20/19 20:00 102.0 102 27 120/71 (87) 100 07/20/19 19:30 104 28 113/66 (82) 100 07/20/19 19:02 106/59 07/20/19 19:00 33 97/60 Mechanical Ventilator 50 07/20/19 19:00 106 28 97/60 (72) 100 07/20/19 19:00 97/60 07/20/19 18:51 100.8 07/20/19 18:30 115 31 109/67 (81) 100 07/20/19 18:15 104 26 118/72 (87) 100 07/20/19 18:00 33 118/72 Mechanical Ventilator 50 07/20/19 18:00 118/72 07/20/19 18:00 100.8 108 33 108/64 (79) 100 07/20/19 17:45 108 33 106/72 (83) 100 07/20/19 17:30 110 22 105/72 (83) 100 07/20/19 17:15 112 42 110/71 (84) 99 07/20/19 17:00 34 110/71 Mechanical Ventilator 50 07/20/19 17:00 110/71 07/20/19 17:00 105 33 82/61 (68) 100 07/20/19 16:45 105 33 87/63 (71) 100 Intake and Output 07/21/19 07/22/19 19:00 07:00 Intake Total 1089.375 ml 1017.5 ml Balance 1089.375 ml 1017.5 ml IV Total 489.375 ml 397.5 ml Tube Feeding 420 ml 420 ml Other 180 ml 200 ml # Bowel Movements 3 Labs Test 07/20/19 03:40 07/21/19 04:00 07/22/19 04:00 White Blood Count 22.2 K/UL (4.8-10.8) 25.9 K/UL (4.8-10.8) Red Blood Count 4.13 M/UL (4.70-6.10) 3.52 M/UL (4.70-6.10) Hemoglobin 11.9 G/DL (14.2-18.0) 10.2 G/DL (14.2-18.0) Hematocrit 36.5 % (42.0-52.0) 31.1 % (42.0-52.0) Mean Corpuscular Volume 88 FL (80-99) 88 FL (80-99) Mean Corpuscular Hemoglobin 28.9 PG (27.0-31.0) 29.0 PG (27.0-31.0) Mean Corpuscular Hemoglobin Concent 32.6 G/DL (32.0-36.0) 32.9 G/DL (32.0-36.0) Red Cell Distribution Width 16.1 % (11.6-14.8) 15.9 % (11.6-14.8) Platelet Count 544 K/UL (150-450) 315 K/UL (150-450) Mean Platelet Volume 6.2 FL (6.5-10.1) 6.7 FL (6.5-10.1) Neutrophils (%) (Auto) % (45.0-75.0) % (45.0-75.0) Lymphocytes (%) (Auto) % (20.0-45.0) % (20.0-45.0) Monocytes (%) (Auto) % (1.0-10.0) % (1.0-10.0) Eosinophils (%) (Auto) % (0.0-3.0) % (0.0-3.0) Basophils (%) (Auto) % (0.0-2.0) % (0.0-2.0) Differential Total Cells Counted 100 100 Neutrophils % (Manual) 89 % (45-75) 92 % (45-75) Lymphocytes % (Manual) 8 % (20-45) 6 % (20-45) Monocytes % (Manual) 3 % (1-10) 2 % (1-10) Eosinophils % (Manual) 0 % (0-3) 0 % (0-3) Basophils % (Manual) 0 % (0-2) 0 % (0-2) Band Neutrophils 0 % (0-8) 0 % (0-8) Platelet Estimate Increased Adequate Platelet Morphology Normal Normal Polychromasia 1+ Hypochromasia 1+ 1+ Anisocytosis 1+ 1+ Sodium Level 136 MMOL/L (136-145) 134 MMOL/L (136-145) Potassium Level 4.2 MMOL/L (3.5-5.1) 3.7 MMOL/L (3.5-5.1) Chloride Level 94 MMOL/L (98-107) 92 MMOL/L (98-107) Carbon Dioxide Level 21 MMOL/L (21-32) 26 MMOL/L (21-32) Anion Gap 21 mmol/L (5-15) 16 mmol/L (5-15) Blood Urea Nitrogen 85 mg/dL (7-18) 81 mg/dL (7-18) Creatinine 11.0 MG/DL (0.55-1.30) 9.0 MG/DL (0.55-1.30) Estimat Glomerular Filtration Rate 4.7 mL/min (>60) 5.9 mL/min (>60) Glucose Level 316 MG/DL (74-106) 289 MG/DL (74-106) Calcium Level 9.9 MG/DL (8.5-10.1) 9.3 MG/DL (8.5-10.1) Phosphorus Level 5.3 MG/DL (2.5-4.9) 3.7 MG/DL (2.5-4.9) Total Bilirubin 0.5 MG/DL (0.2-1.0) 0.4 MG/DL (0.2-1.0) Aspartate Amino Transf (AST/SGOT) 25 U/L (15-37) 20 U/L (15-37) Alanine Aminotransferase (ALT/SGPT) 19 U/L (12-78) 12 U/L (12-78) Alkaline Phosphatase 184 U/L (46-116) 179 U/L (46-116) C-Reactive Protein, Quantitative 11.8 mg/dL (0.00-0.90) 7.0 mg/dL (0.00-0.90) Total Protein 10.0 G/DL (6.4-8.2) 8.4 G/DL (6.4-8.2) Albumin 2.8 G/DL (3.4-5.0) 2.7 G/DL (3.4-5.0) Globulin 7.2 g/dL 5.7 g/dL Albumin/Globulin Ratio 0.4 (1.0-2.7) 0.5 (1.0-2.7) Random Vancomycin Level 25.5 ug/mL 24.1 ug/mL Magnesium Level 2.5 MG/DL (1.8-2.4) Pro-B-Type Natriuretic Peptide 39054 pg/mL (0-125) Height (Feet): 6 Height (Inches): 1.00 Weight (Pounds): 185 Objective General: nv, confused, sedated Heent: bilateral eye normal inspection, bilateral eye PERRL ++Ng Respiratory: normal breath sounds, no respiratory distress, intubated/vent +++ trach+++ Cardiovascular: regular rate, rhythm, no edema Gastrointestinal: normal inspection, soft, non-distended, peg+ Rectal: deferred Musculoskeletal: normal range of motion, non-tender, R fem cath++ Neurologic: alert, motor strength/tone normal, sensory intact, responsive, speech normal Skin: Decubitus/Ulcer - See RN skin exam. : jamaal+ Greg Cabral MD Jul 22, 2019 16:40
[2019-07-22] MEDS: Dyna-Hex 2% Top Sol 2oz TOPIC SCH (20:03)
--- NOTE | 2019-07-22 22:09 | General Progress Note ---
Assessment/Plan Problem List: (1) HTN (hypertension) ICD Codes: I10 - Essential (primary) hypertension SNOMED: 48868558 (2) CASSANDRA (acute kidney injury) ICD Codes: N17.9 - Acute kidney failure, unspecified SNOMED: 9906185, 03543226 (3) Anemia in chronic kidney disease (CKD) ICD Codes: N18.9 - Chronic kidney disease, unspecified; D63.1 - Anemia in chronic kidney disease SNOMED: 698117103 (4) Renal failure ICD Codes: N19 - Unspecified kidney failure SNOMED: 55764469 (5) Respiratory failure requiring intubation ICD Codes: J96.90 - Respiratory failure, unspecified, unspecified whether with hypoxia or hypercapnia; A41.89 - Other specified sepsis SNOMED: 650011154, 734318309 (6) Pneumonia due to COVID-19 virus ICD Codes: U07.1 - COVID-19; J12.89 - Other viral pneumonia SNOMED: 849980306, 335642433 (7) Sepsis due to severe acute respiratory syndrome coronavirus 2 (SARS-CoV-2) ICD Codes: U07.1 - COVID-19; A41.89 - Other specified sepsis SNOMED: 068726756, 964670391 Status: progressing, unchanged Assessment/Plan: septic shock on pressor support critical condition very poor worsening renal failure worsening leukocytosis very poor prognosis diaylsis per renal s/p covid pna Subjective Allergies: Coded Allergies: No Known Allergies (Unverified , 05/28/19) Objective Last 24 Hour Vital Signs Date Time Temp Pulse Resp B/P (MAP) Pulse Ox O2 Delivery O2 Flow Rate FiO2 07/22/19 20:09 84 26 100 Mechanical Ventilator 45 85 26 45 07/22/19 20:00 98.9 74 27 117/62 (80) 100 07/22/19 20:00 45 07/22/19 20:00 75 07/22/19 19:00 112/63 07/22/19 19:00 26 112/63 Mechanical Ventilator 45 07/22/19 19:00 76 26 112/63 (79) 100 07/22/19 18:30 80 26 117/69 (85) 100 07/22/19 18:00 75 25 113/58 (76) 94 07/22/19 18:00 110/69 07/22/19 18:00 18 110/69 Mechanical Ventilator 45 07/22/19 17:30 77 25 121/54 (76) 100 07/22/19 17:00 160/70 07/22/19 17:00 18 160/70 Mechanical Ventilator 45 07/22/19 17:00 77 25 109/56 (73) 100 07/22/19 16:30 78 25 112/54 (73) 100 07/22/19 16:00 Mechanical Ventilator 07/22/19 16:00 80 25 111/56 (74) 100 07/22/19 16:00 76 07/22/19 16:00 45 07/22/19 16:00 120/62 07/22/19 16:00 25 120/62 Mechanical Ventilator 45 07/22/19 15:30 77 27 120/62 (81) 100 07/22/19 15:10 88 26 100 Mechanical Ventilator 45 88 26 45 07/22/19 15:00 91/54 07/22/19 15:00 26 91/54 Mechanical Ventilator 45 07/22/19 15:00 72 26 89/54 (66) 100 07/22/19 14:30 80 21 116/58 (77) 100 07/22/19 14:00 79 22 122/59 (80) 100 07/22/19 14:00 122/59 07/22/19 14:00 22 122/59 Mechanical Ventilator 45 07/22/19 13:30 75 26 99/59 (72) 100 07/22/19 13:00 80 25 100/56 (71) 100 07/22/19 13:00 100/56 07/22/19 13:00 25 100/56 Mechanical Ventilator 45 07/22/19 12:30 91 25 111/66 (81) 100 07/22/19 12:15 89 25 120/67 (84) 92 07/22/19 12:00 Mechanical Ventilator 07/22/19 12:00 99.6 78 27 147/65 (92) 100 07/22/19 12:00 45 07/22/19 12:00 78 07/22/19 12:00 147/65 07/22/19 12:00 27 120/67 Mechanical Ventilator 45 07/22/19 11:30 79 25 130/77 (94) 100 07/22/19 11:10 81 28 100 Mechanical Ventilator 45 78 28 45 07/22/19 11:00 81 25 126/65 (85) 100 07/22/19 11:00 126/65 07/22/19 11:00 25 126/65 Mechanical Ventilator 45 07/22/19 10:30 80 26 130/66 (87) 100 07/22/19 10:00 84 26 135/79 (97) 100 07/22/19 10:00 135/79 07/22/19 10:00 26 135/79 Mechanical Ventilator 45 07/22/19 09:30 78 26 130/77 (94) 100 07/22/19 09:00 77 26 136/64 (88) 100 07/22/19 09:00 136/64 07/22/19 09:00 27 147/65 Mechanical Ventilator 45 07/22/19 08:30 80 26 124/71 (88) 100 07/22/19 08:00 45 07/22/19 08:00 80 07/22/19 08:00 99.7 82 24 141/63 (89) 100 07/22/19 08:00 125/67 07/22/19 08:00 24 125/67 Mechanical Ventilator 45 07/22/19 08:00 Mechanical Ventilator 07/22/19 07:30 81 26 120/62 (81) 100 07/22/19 07:10 81 26 100 Mechanical Ventilator 45 81 26 45 07/22/19 07:00 119/68 07/22/19 07:00 26 119/62 Mechanical Ventilator 45 07/22/19 07:00 81 25 125/67 (86) 100 07/22/19 06:59 26 121/58 Mechanical Ventilator 45 07/22/19 06:30 80 26 105/62 (76) 100 07/22/19 06:00 85 26 126/78 (94) 100 07/22/19 06:00 126/78 07/22/19 06:00 26 126/78 Mechanical Ventilator 45 07/22/19 05:30 82 25 125/68 (87) 100 07/22/19 05:23 136/72 07/22/19 05:00 76 26 109/62 (78) 100 07/22/19 05:00 109/62 07/22/19 05:00 26 109/62 Mechanical Ventilator 45 07/22/19 04:30 81 26 114/66 (82) 100 07/22/19 04:00 45 07/22/19 04:00 99.1 80 26 110/64 (79) 100 07/22/19 04:00 81 07/22/19 04:00 Mechanical Ventilator 07/22/19 03:30 80 26 118/61 (80) 100 07/22/19 03:00 83 25 126/67 (86) 100 07/22/19 03:00 126/67 07/22/19 03:00 26 126/67 Mechanical Ventilator 45 07/22/19 02:59 90 26 100 Mechanical Ventilator 45 92 26 45 07/22/19 02:30 86 28 130/64 (86) 98 07/22/19 02:00 133/64 07/22/19 02:00 26 133/64 Mechanical Ventilator 45 07/22/19 02:00 88 24 133/64 (87) 100 07/22/19 01:30 83 26 109/68 (82) 100 07/22/19 01:00 81 28 115/66 (82) 100 07/22/19 01:00 115/66 07/22/19 01:00 26 115/66 Mechanical Ventilator 45 07/22/19 00:30 87 27 105/66 (79) 100 07/22/19 00:00 Mechanical Ventilator 07/22/19 00:00 97.9 91 25 131/78 (95) 100 07/22/19 00:00 131/78 07/22/19 00:00 26 131/78 Mechanical Ventilator 45 07/21/19 23:30 91 25 113/87 (96) 100 07/21/19 23:08 96 32 100 Mechanical Ventilator 45 100 31 45 07/21/19 23:00 146/98 07/21/19 23:00 24 146/98 Mechanical Ventilator 45 07/21/19 23:00 96 24 146/98 (114) 100 07/21/19 22:30 88 31 101/59 (73) 100 Intake and Output 07/21/19 07/22/19 19:00 07:00 Intake Total 1089.375 ml 1017.5 ml Balance 1089.375 ml 1017.5 ml IV Total 489.375 ml 397.5 ml Tube Feeding 420 ml 420 ml Other 180 ml 200 ml # Bowel Movements 3 Laboratory Tests 07/22/19 04:00: White Blood Count 25.9*H, Red Blood Count 3.52L, Hemoglobin 10.2L, Hematocrit 31.1L, Mean Corpuscular Volume 88, Mean Corpuscular Hemoglobin 29.0, Mean Corpuscular Hemoglobin Concent 32.9, Red Cell Distribution Width 15.9H, Platelet Count 315, Mean Platelet Volume 6.7, Neutrophils (%) (Auto) , Lymphocytes (%) (Auto) , Monocytes (%) (Auto) , Eosinophils (%) (Auto) , Basophils (%) (Auto) , Differential Total Cells Counted 100, Neutrophils % ( Manual) 92H, Lymphocytes % (Manual) 6L, Monocytes % (Manual) 2, Eosinophils % ( Manual) 0, Basophils % (Manual) 0, Band Neutrophils 0, Platelet Estimate Adequate, Platelet Morphology Normal, Hypochromasia 1+, Anisocytosis 1+, Sodium Level 134L, Potassium Level 3.7, Chloride Level 92L, Carbon Dioxide Level 26, Anion Gap 16H, Blood Urea Nitrogen 81H, Creatinine 9.0H, Estimat Glomerular Filtration Rate 5.9, Glucose Level 289H, Calcium Level 9.3, Phosphorus Level 3.7 , Magnesium Level 2.5H, Total Bilirubin 0.4, Aspartate Amino Transf (AST/SGOT) 20, Alanine Aminotransferase (ALT/SGPT) 12, Alkaline Phosphatase 179H, C- Reactive Protein, Quantitative 7.0H, Pro-B-Type Natriuretic Peptide 06231J, Total Protein 8.4H, Albumin 2.7L, Globulin 5.7, Albumin/Globulin Ratio 0.5L, Random Vancomycin Level 24.1 Height (Feet): 6 Height (Inches): 1.00 Weight (Pounds): 185 General Appearance: lethargic Karishma Mulligan MD Jul 22, 2019 22:09
--- NOTE | 2019-07-22 23:12 | Diagnostic Imaging Report ---
EXAM: XR Chest, 1 View CLINICAL HISTORY: LINE TECHNIQUE: Frontal view of the chest. COMPARISON: 07/19/19 FINDINGS: Both central venous catheters placed from the left terminate at the midline and likely within the brachiocephalic vein. These have been retracted since the prior study. Tracheostomy tube is unchanged. Patchy airspace densities in both lungs. Negative for pneumothorax or pleural fluid collections.
[2019-07-23] VITALS (48 sets, daily range): BP systolic 82–137; BP diastolic 47–71
[2019-07-23] MEDS: Albuterol 90mcg Inhaler 8gm INH SCH ×6 (03:09→23:07)
[2019-07-23] MEDS: Renvela 2400 mg pkt NG SCH ×3 (05:20→18:11)
[2019-07-23] MEDS: Midodrine 10mg tab ORAL SCH ×3 (05:20→21:44)
[2019-07-23 05:55] LABS: BASOPHILS % (AUTO) 0.6 % (0.0-2.0); EOSINOPHILS % (AUTO) 4.2 % (0.0-3.0); HEMATOCRIT 28.9 % (42.0-52.0); HEMOGLOBIN 8.8 G/DL (14.2-18.0); LYMPHOCYTES % (AUTO) 8.2 % (20.0-45.0); MEAN CORPUSCULAR VOLUME 95 FL (80-99); MONOCYTES % (AUTO) 6.4 % (1.0-10.0); NEUTROPHILS % (AUTO) 80.5 % (45.0-75.0); PLATELET COUNT 244 K/UL (150-450); RED BLOOD COUNT 3.06 M/UL (4.70-6.10); RED CELL DISTRIBUTION WIDTH 16.3 % (11.6-14.8); WHITE BLOOD COUNT 17.4 K/UL (4.8-10.8)
[2019-07-23] MEDS: NovoLOG Insulin Flexpen SUBQ SCH ×3 (06:00→18:29)
[2019-07-23 06:04] LABS: ALANINE AMINOTRANSFERASE 11 U/L (12-78); ALBUMIN 2.8 G/DL (3.4-5.0); ALBUMIN/GLOBULIN RATIO 0.5 (1.0-2.7); ALKALINE PHOSPHATASE 148 U/L (46-116); ANION GAP 16 mmol/L (5-15); ASPARTATE AMINO TRANSFERASE 15 U/L (15-37); BILIRUBIN,TOTAL 0.4 MG/DL (0.2-1.0); BLOOD UREA NITROGEN 86 mg/dL (7-18); CALCIUM 9.5 MG/DL (8.5-10.1); CARBON DIOXIDE 27 MMOL/L (21-32); CHLORIDE 93 MMOL/L (98-107); CREATININE 9.9 MG/DL (0.55-1.30); POTASSIUM 3.7 MMOL/L (3.5-5.1); SODIUM 136 MMOL/L (136-145)
--- NOTE | 2019-07-23 07:58 | Pulmonolgy Critical Care Note ---
Critical Care - Asmt/Plan Assessment/Plan: Pulmonary CCM Progress Note HPI: Patient is a 68 year old man, [place] [place], admitted c/o shortness of breath, cough, noted to have Covid 19 Pneumonia, Respiratory Failure Remains on Ventilator, CXR infiltrates stable Septic Shock, remains on pressors - Mitodrine , less Levophed Preserved EF FIO2 40%, P5, adequate O2 sats, remains on ACVC, s/p Tracheostomy previously, sp PEG Seen earlier on 07/22/2019 ID following, on broad spectrum AB Past Medical History: COPD, CKD, Hypertension, Anemia Allergies: No Known Allergies Improving Pulmonary Status on HD Physical Exam Vital Signs Noted Stable on ventilator Chronically ill appearing HEENT: moist mm, trach Chest: Occasional rhonchi, BS equal bilaterally Heart: HS1, HS2, RRR Abdomen: SNTND G tube Extremities: No edema, well perfused KNOT TIER: Non focal, sedated Impression: COVID-19 virus infection Pneumonia Respiratory failure on ventilator, wean as tolerated once off pressors CKD - on HD Hypotension on pressors previously Cardiomegaly Lymphopenia Elevated AST COPD Chronic Kidney Disease - HD H/o Hypertension Worsening anemia Plan: SP Tracheostomy / G tube Antibiotics per ID HD Pressors PRN ACVC - wean as tolerated [employer] Medications 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 Monitor cultures/viral studies PPX Hemodialysis per Renal Psychiatry following Laboratory Tests Noted: CXR: Hypoventilatory exam, interstitial changes, cardiomegaly, improving infiltrates Subjective ROS Limited/Unobtainable: No Constitutional: Denies: fever Respiratory: Reports: dry cough, shortness of breath Gastrointestinal/Abdominal: Reports: diarrhea, other - colace was stopped Psychiatric: Reports: other - refuses labs Allergies: Coded Allergies: No Known Allergies (Unverified , 05/28/19) All Systems: reviewed and negative except above Labs noted Critical Care - Objective Last 24 Hour Vital Signs Date Time Temp Pulse Resp B/P (MAP) Pulse Ox O2 Delivery O2 Flow Rate FiO2 07/23/19 07:00 67 26 107/57 (74) 100 07/23/19 06:30 65 25 118/58 (78) 100 07/23/19 06:30 65 26 07/23/19 06:00 63 26 114/70 (85) 100 07/23/19 06:00 118/58 07/23/19 06:00 26 118/58 Mechanical Ventilator 45 07/23/19 05:30 70 25 107/60 (76) 100 07/23/19 05:00 70 26 106/62 (77) 100 07/23/19 05:00 106/62 07/23/19 05:00 26 106/62 Mechanical Ventilator 45 07/23/19 04:30 75 19 134/69 (90) 100 07/23/19 04:00 98.3 68 26 121/64 (83) 100 07/23/19 04:00 121/64 07/23/19 04:00 26 121/64 Mechanical Ventilator 45 07/23/19 04:00 Mechanical Ventilator 07/23/19 04:00 45 07/23/19 04:00 74 07/23/19 03:30 63 26 84/52 (63) 100 07/23/19 03:10 69 28 100 Mechanical Ventilator 45 68 26 45 07/23/19 03:00 67 26 92/47 (62) 100 07/23/19 03:00 92/47 07/23/19 03:00 26 92/47 Mechanical Ventilator 45 07/23/19 02:30 74 26 108/57 (74) 100 07/23/19 02:00 73 26 105/65 (78) 97 07/23/19 02:00 105/65 07/23/19 02:00 26 105/65 Mechanical Ventilator 45 07/23/19 01:30 67 26 103/57 (72) 100 07/23/19 01:00 67 26 97/57 (70) 100 07/23/19 01:00 97/57 07/23/19 01:00 26 97/50 Mechanical Ventilator 45 07/23/19 00:30 74 24 106/58 (74) 100 07/23/19 00:00 Mechanical Ventilator 07/23/19 00:00 98.5 72 25 123/58 (79) 100 07/23/19 00:00 123/58 07/23/19 00:00 25 123/58 Mechanical Ventilator 45 07/22/19 23:30 74 25 128/70 (89) 100 07/22/19 23:14 75 26 100 Mechanical Ventilator 45 77 26 45 07/22/19 23:00 137/70 07/22/19 23:00 26 137/70 Mechanical Ventilator 45 07/22/19 23:00 70 26 137/70 (92) 100 07/22/19 22:57 25 127/70 Mechanical Ventilator 45 07/22/19 22:30 71 26 127/70 (89) 100 07/22/19 22:00 71 13 135/69 (91) 100 07/22/19 22:00 135/69 07/22/19 22:00 13 135/69 Mechanical Ventilator 45 07/22/19 21:30 75 24 108/62 (77) 100 07/22/19 21:00 73 25 105/64 (78) 100 07/22/19 21:00 105/64 07/22/19 21:00 25 105/64 Mechanical Ventilator 45 07/22/19 20:30 74 26 108/72 (84) 100 07/22/19 20:09 84 26 100 Mechanical Ventilator 45 85 26 45 07/22/19 20:00 98.9 74 27 117/62 (80) 100 07/22/19 20:00 117/62 07/22/19 20:00 27 117/62 Mechanical Ventilator 45 07/22/19 20:00 45 07/22/19 20:00 75 07/22/19 20:00 Mechanical Ventilator 07/22/19 19:00 112/63 07/22/19 19:00 26 112/63 Mechanical Ventilator 45 07/22/19 19:00 76 26 112/63 (79) 100 07/22/19 18:30 80 26 117/69 (85) 100 07/22/19 18:00 75 25 113/58 (76) 94 07/22/19 18:00 110/69 07/22/19 18:00 18 110/69 Mechanical Ventilator 45 07/22/19 17:30 77 25 121/54 (76) 100 07/22/19 17:00 160/70 07/22/19 17:00 18 160/70 Mechanical Ventilator 45 07/22/19 17:00 77 25 109/56 (73) 100 07/22/19 16:30 78 25 112/54 (73) 100 07/22/19 16:00 Mechanical Ventilator 07/22/19 16:00 80 25 111/56 (74) 100 07/22/19 16:00 76 07/22/19 16:00 45 07/22/19 16:00 120/62 07/22/19 16:00 25 120/62 Mechanical Ventilator 45 07/22/19 15:30 77 27 120/62 (81) 100 07/22/19 15:10 88 26 100 Mechanical Ventilator 45 88 26 45 07/22/19 15:00 91/54 07/22/19 15:00 26 91/54 Mechanical Ventilator 45 07/22/19 15:00 72 26 89/54 (66) 100 07/22/19 14:30 80 21 116/58 (77) 100 07/22/19 14:00 79 22 122/59 (80) 100 07/22/19 14:00 122/59 07/22/19 14:00 22 122/59 Mechanical Ventilator 45 07/22/19 13:30 75 26 99/59 (72) 100 07/22/19 13:00 80 25 100/56 (71) 100 07/22/19 13:00 100/56 07/22/19 13:00 25 100/56 Mechanical Ventilator 45 07/22/19 12:30 91 25 111/66 (81) 100 07/22/19 12:15 89 25 120/67 (84) 92 07/22/19 12:00 Mechanical Ventilator 07/22/19 12:00 99.6 78 27 147/65 (92) 100 07/22/19 12:00 45 07/22/19 12:00 78 07/22/19 12:00 147/65 07/22/19 12:00 27 120/67 Mechanical Ventilator 45 07/22/19 11:30 79 25 130/77 (94) 100 07/22/19 11:10 81 28 100 Mechanical Ventilator 45 78 28 45 07/22/19 11:00 81 25 126/65 (85) 100 07/22/19 11:00 126/65 07/22/19 11:00 25 126/65 Mechanical Ventilator 45 07/22/19 10:30 80 26 130/66 (87) 100 07/22/19 10:00 84 26 135/79 (97) 100 07/22/19 10:00 135/79 07/22/19 10:00 26 135/79 Mechanical Ventilator 45 07/22/19 09:30 78 26 130/77 (94) 100 07/22/19 09:00 77 26 136/64 (88) 100 07/22/19 09:00 136/64 07/22/19 09:00 27 147/65 Mechanical Ventilator 45 07/22/19 08:30 80 26 124/71 (88) 100 07/22/19 08:00 45 07/22/19 08:00 80 07/22/19 08:00 99.7 82 24 141/63 (89) 100 07/22/19 08:00 125/67 07/22/19 08:00 24 125/67 Mechanical Ventilator 45 07/22/19 08:00 Mechanical Ventilator Micro: Microbiology Date/Time Source Procedure Growth Status 07/21/19 04:00 Blood Blood Culture - Preliminary NO GROWTH AFTER 48 HOURS Resulted 07/21/19 04:00 Blood Blood Culture - Preliminary NO GROWTH AFTER 48 HOURS Resulted 07/20/19 13:00 Blood Blood Culture - Preliminary Staphylococcus Sp Coag Neg Resulted 07/20/19 13:00 Blood Blood Culture - Preliminary Staphylococcus Sp Coag Neg Resulted Accucheck: 155 Critical Care - Subjective ROS Limited/Unobtainable: Yes Condition: critical IV Access: central FI02: 45 Vent Support Breath Rate: 26 Vent Support Mode: AC Vent Tidal Volume: 500 Sputum Amount: Small PEEP: 5.0 PIP: 25 Tube Feeding Amount: 35 I&O: Intake and Output 07/22/19 07/23/19 19:00 07:00 Intake Total 937.5 ml 877.50 ml Balance 937.5 ml 877.50 ml Free Water 120 ml IV Total 397.5 ml 257.50 ml Tube Feeding 420 ml 420 ml Other 200 ml # Bowel Movements 2 2 ET-Tube: 7.5 ET Position: 24 Arturo Mckeon MD Jul 23, 2019 07:58
[2019-07-23] MEDS: Enoxaparin 30mg Inj SUBQ SCH (08:06)
[2019-07-23 08:28] LABS: PHOSPHORUS 3.7 MG/DL (2.5-4.9)
--- NOTE | 2019-07-23 08:58 | Hematology/Onc Progress Note ---
Assessment/Plan Assessment/Plan Assessment and Recs: # Anemia of chronic disease, likely related ot underlying kidney disease has COIVD19++++++ --> hgb trend 9-->8-->7.3-->7.9-->6.8->9.5-->10->8.3-->7.7-->7.1-->8.9->8.8->7.7 -->8.1 ->7.9-->7.7 -->8.2-->8.1 -->7.9-->8.5 -->9->9.2-->9.5-->10.7 -->9.8--> 10.2-->11.8 -->11.9-->8.8 --> transfuse as needed, hgb goal >7 --> no evidence of hemolysis --> peripheral smear has been reviewed --> epogen started 3 x a week ==>> transfuse 06/08, 06/15 # Leukocytosis likely related to suspected COVID-19 virus infection --> completed plaquenil --> trend smear as needed --> wbc trend: 4-->11-->14.5-->21-->26-->21->24--.28-->23-->19-->16.2-->21--> 11.2 -->12.5-->12.3-->12.4-->18.5-->18.5-->17->13-->18.2-->22.2-->25-->17.4 --> pulm is aware --> on abx cefepime/vanc->zosyn/vanc-->dom/vanc-->dom-->levaquin/cefepime,--> vanc --> pressors as needed --> 06/27 covid 19++ --> pressors as needed in icu # Thrombocytopenia/Lymphopenia --> likely related to covid19 --> plt 129k-->186k-->251-->285-->384 -->430-->539-->515-->447-->451-->404-->544 -->244 # Respiratory failure with covid19+ --> s/p vent/trach --> weaning # Possible Pneumonia --> abx completed --> 07/13 cxr: Improved right lung infiltrates. # Cardiomegaly # Transaminitis with Elevated AST # COPD # Chronic Kidney Disease --> per renal hd --> s/p right femoral cath 07/02 # Hypertension # Dvt ppx lovenox # peg Appreciate consultation and ernesto Rn Subjective Allergies: Coded Allergies: No Known Allergies (Unverified , 05/28/19) Subjective 06/01 nv, extremely agitated, not allowing labs draws, no night sweats, cbc ordered 06/02 confused, restraints, on abx and plaquenil, hgb 7.9, nrb 15 L 06/03 is with nonrebreather, but not compliant, remains confused 06/05 no bleeding, labs noted, no major bleeding, otherwise comfortable 06/06 labs reviewed, no bleeding, meds noted, no night sweats, on levo and nonrebreather 06/07 labs noted, no bleeding, meds reviewed, no bleeding, wbc higher 06/08 to get 2 units prbc, no night sweats, meds reviewed 06/09 is on cefepime and vanc, labs noted, ernesto Rn, no bleeding 06/10 no major changes, labs reviewed, wbc 28k, on abx, cefepime 06/12 remains in icu, labs noted, no night sweats or bleeding 06/13 sluggish pupils, remains agitated, per psych, no bleding, on vent, wbc sitll high 06/14 still confused, remains on vent, with ng, running nepro, on pressors 06/15 icu, febrile, non verbal, hgb 7.1, blood pending, completed plaq 06/16 remains in the icu, nonverbal, plan for hd tomorrow, ernesto rn 06/17 in icu, on pressor, nonverbal, on abx, no bleeding 06/19 no bleeding, nonverbal in icu, hgb is 7.7 06/20 on zosyn, tube feeds, vent, labs noted, in icu, nv 06/21 gettng hd as per renal, in icu, nv, no bleeding, tfs 06/22 icu, cxr with slight improvement, cooling blanket, weaning today 06/23 wewaning, in icu, on vent, abx, and pressors as needed, labs noted 06/24 failed weaning, off abx, completed plaquenil, hgb 8.1 06/26 icu, weaning for this am, afebrile, hgb 8 06/27 in icu, remains comotose, weaning started on peep, no night sweats 06/28 weaning today, off abx, restraints, no distress, h/h stable 06/29 covid 19+, failed weaning, no blood transfusion needed 06/30 icu, on vent, labs reviewed, no distress 07/01 in icu, may need trach, remains on hd per renal, labs noted 07/02 s/p right fem cath, failed wean, no new orders, h/h stable 07/03 is somewhat more responsive, on abx, no bleeding, weaning and HD today 07/04 hd as per renal, weaning off vent, no bleeding today 07/05 obtunded, no bleding overnight, with hd for tomorrow noted, vanc 07/08 no events, remains with trach/vent, ernesto Rn, no bleeding, cbc is noted 07/09 no overnight events, peg for friday pending consent 07/10 off pressors, vent, restraints, labs reviewed 07/11 no acute events is on pressors, intubated, agitated still 07/12 is resting comfortably, no bleeding, emds reviewed and noted 07/13 icu, no events, trach, cxr reviewed, 07/14 is onv ent, tachypneic and tachycardic, labs noted 07/15 remains confused, intubated, ernesto Rn, no bleeding 07/17 icu, cxr improving infiltrates, levo gtt, airborne/contact isolation 07/18 is on broad spectrum abx, is on levaquin and cefepime, wbc 16 agitated 07/19 icu, levo gtt, cxr unchanged, tachy, hd thursday 07/20 sedated, safety restraints, labs reviewed 07/21 hd was done yesterday, lower pressor requirements, wbc is worse, on abx 07/22 icu, meds and labs reviewed, vent, no distress Objective Objective Current Medications Medications (Trade) Dose Ordered Sig/Anthony Route PRN Reason Start Time Stop Time Status Last Admin Dose Admin Acetaminophen (Tylenol) 650 mg Q4H PRN NG For Pain 07/11/19 08:00 08/10/19 07:59 07/20/19 18:21 Albuterol Sulfate (Proventil MDI) 2 puff Q4HRT INH 06/06/19 23:00 08/30/19 18:59 07/23/19 07:29 Chlorhexidine Gluconate (Michelle-Hex 2%) 1 applic DAILY@2000 TOPIC 06/07/19 20:00 09/05/19 19:59 07/22/19 20:03 Dextrose (Dextrose 50%) 25 ml Q30M PRN IV Hypoglycemia 06/20/19 19:30 09/18/19 19:29 Dextrose (Dextrose 50%) 50 ml Q30M PRN IV Hypoglycemia 06/20/19 19:30 09/18/19 19:29 Dopamine HCl/ Dextrose 250 ml @ 0 mls/hr Q24H PRN IV For hypotension 06/13/19 08:15 09/11/19 08:14 07/17/19 08:46 Enoxaparin Sodium (Lovenox) 30 mg DAILY SUBQ 06/07/19 09:00 08/27/19 08:59 07/23/19 08:06 Epoetin Aftab (Epoetin Aftab(ESRD on dialysis)) 10,000 unit FRI-FRI-FRI SUBQ 06/07/19 21:00 08/31/19 20:59 07/19/19 21:00 Fentanyl Citrate 250 ml @ 0 mls/hr Q24H IV 07/19/19 14:06 10/17/19 14:05 07/22/19 22:57 Haloperidol Lactate 5 mg/ Dextrose 56 ml @ 224 mls/hr Q6H PRN IVPB Agitation 07/11/19 15:00 08/25/19 14:59 07/15/19 02:36 Hydralazine HCl (Apresoline) 10 mg Q4H PRN IV Blood pressure over 160 systol 06/07/19 10:15 09/05/19 10:14 Insulin Aspart (NovoLOG) EVERY 6 HOURS SUBQ 06/21/19 00:00 09/19/19 00:00 07/23/19 06:00 Midodrine (Pro-Amatine) 10 mg Q8HR ORAL 07/17/19 14:00 10/15/19 10:29 07/23/19 05:20 Norepinephrine Bitartrate 16 mg/ Dextrose 500 ml @ 0 mls/hr Q24H IV 07/20/19 22:00 08/19/19 21:59 07/22/19 05:23 Sevelamer Carbonate (Renvela) 2,400 mg Q6HR NG 07/14/19 12:00 10/12/19 13:59 07/23/19 05:20 Vancomycin HCl (Vanco pharmacy to dose) 1 ea DAILY PRN MISC Per rx protocol 07/20/19 10:45 08/19/19 10:44 Last 24 Hour Vital Signs Date Time Temp Pulse Resp B/P (MAP) Pulse Ox O2 Delivery O2 Flow Rate FiO2 07/23/19 07:00 67 26 107/57 (74) 100 07/23/19 06:30 65 25 118/58 (78) 100 07/23/19 06:30 65 26 07/23/19 06:00 63 26 114/70 (85) 100 07/23/19 06:00 118/58 07/23/19 06:00 26 118/58 Mechanical Ventilator 45 07/23/19 05:30 70 25 107/60 (76) 100 07/23/19 05:00 70 26 106/62 (77) 100 07/23/19 05:00 106/62 07/23/19 05:00 26 106/62 Mechanical Ventilator 45 07/23/19 04:30 75 19 134/69 (90) 100 07/23/19 04:00 98.3 68 26 121/64 (83) 100 07/23/19 04:00 121/64 07/23/19 04:00 26 121/64 Mechanical Ventilator 45 07/23/19 04:00 Mechanical Ventilator 07/23/19 04:00 45 07/23/19 04:00 74 07/23/19 03:30 63 26 84/52 (63) 100 07/23/19 03:10 69 28 100 Mechanical Ventilator 45 68 26 45 07/23/19 03:00 67 26 92/47 (62) 100 07/23/19 03:00 92/47 07/23/19 03:00 26 92/47 Mechanical Ventilator 45 07/23/19 02:30 74 26 108/57 (74) 100 07/23/19 02:00 73 26 105/65 (78) 97 07/23/19 02:00 105/65 07/23/19 02:00 26 105/65 Mechanical Ventilator 45 07/23/19 01:30 67 26 103/57 (72) 100 07/23/19 01:00 67 26 97/57 (70) 100 07/23/19 01:00 97/57 07/23/19 01:00 26 97/50 Mechanical Ventilator 45 07/23/19 00:30 74 24 106/58 (74) 100 07/23/19 00:00 Mechanical Ventilator 07/23/19 00:00 98.5 72 25 123/58 (79) 100 07/23/19 00:00 123/58 07/23/19 00:00 25 123/58 Mechanical Ventilator 45 07/22/19 23:30 74 25 128/70 (89) 100 07/22/19 23:14 75 26 100 Mechanical Ventilator 45 77 26 45 07/22/19 23:00 137/70 07/22/19 23:00 26 137/70 Mechanical Ventilator 45 07/22/19 23:00 70 26 137/70 (92) 100 07/22/19 22:57 25 127/70 Mechanical Ventilator 45 07/22/19 22:30 71 26 127/70 (89) 100 07/22/19 22:00 71 13 135/69 (91) 100 07/22/19 22:00 135/69 07/22/19 22:00 13 135/69 Mechanical Ventilator 45 07/22/19 21:30 75 24 108/62 (77) 100 07/22/19 21:00 73 25 105/64 (78) 100 07/22/19 21:00 105/64 07/22/19 21:00 25 105/64 Mechanical Ventilator 45 07/22/19 20:30 74 26 108/72 (84) 100 07/22/19 20:09 84 26 100 Mechanical Ventilator 45 85 26 45 07/22/19 20:00 98.9 74 27 117/62 (80) 100 07/22/19 20:00 117/62 07/22/19 20:00 27 117/62 Mechanical Ventilator 45 07/22/19 20:00 45 07/22/19 20:00 75 07/22/19 20:00 Mechanical Ventilator 07/22/19 19:00 112/63 07/22/19 19:00 26 112/63 Mechanical Ventilator 45 07/22/19 19:00 76 26 112/63 (79) 100 07/22/19 18:30 80 26 117/69 (85) 100 07/22/19 18:00 75 25 113/58 (76) 94 07/22/19 18:00 110/69 07/22/19 18:00 18 110/69 Mechanical Ventilator 45 07/22/19 17:30 77 25 121/54 (76) 100 07/22/19 17:00 160/70 07/22/19 17:00 18 160/70 Mechanical Ventilator 45 07/22/19 17:00 77 25 109/56 (73) 100 07/22/19 16:30 78 25 112/54 (73) 100 07/22/19 16:00 Mechanical Ventilator 07/22/19 16:00 80 25 111/56 (74) 100 07/22/19 16:00 76 07/22/19 16:00 45 07/22/19 16:00 120/62 07/22/19 16:00 25 120/62 Mechanical Ventilator 45 07/22/19 15:30 77 27 120/62 (81) 100 07/22/19 15:10 88 26 100 Mechanical Ventilator 45 88 26 45 07/22/19 15:00 91/54 07/22/19 15:00 26 91/54 Mechanical Ventilator 45 07/22/19 15:00 72 26 89/54 (66) 100 07/22/19 14:30 80 21 116/58 (77) 100 07/22/19 14:00 79 22 122/59 (80) 100 07/22/19 14:00 122/59 07/22/19 14:00 22 122/59 Mechanical Ventilator 45 07/22/19 13:30 75 26 99/59 (72) 100 07/22/19 13:00 80 25 100/56 (71) 100 07/22/19 13:00 100/56 07/22/19 13:00 25 100/56 Mechanical Ventilator 45 07/22/19 12:30 91 25 111/66 (81) 100 07/22/19 12:15 89 25 120/67 (84) 92 07/22/19 12:00 Mechanical Ventilator 07/22/19 12:00 99.6 78 27 147/65 (92) 100 07/22/19 12:00 45 07/22/19 12:00 78 07/22/19 12:00 147/65 07/22/19 12:00 27 120/67 Mechanical Ventilator 45 07/22/19 11:30 79 25 130/77 (94) 100 07/22/19 11:10 81 28 100 Mechanical Ventilator 45 78 28 45 07/22/19 11:00 81 25 126/65 (85) 100 07/22/19 11:00 126/65 07/22/19 11:00 25 126/65 Mechanical Ventilator 45 07/22/19 10:30 80 26 130/66 (87) 100 07/22/19 10:00 84 26 135/79 (97) 100 07/22/19 10:00 135/79 07/22/19 10:00 26 135/79 Mechanical Ventilator 45 07/22/19 09:30 78 26 130/77 (94) 100 07/22/19 09:00 77 26 136/64 (88) 100 07/22/19 09:00 136/64 07/22/19 09:00 27 147/65 Mechanical Ventilator 45 07/22/19 08:30 80 26 124/71 (88) 100 07/22/19 08:00 45 07/22/19 08:00 80 07/22/19 08:00 99.7 82 24 141/63 (89) 100 07/22/19 08:00 125/67 07/22/19 08:00 24 125/67 Mechanical Ventilator 45 07/22/19 08:00 Mechanical Ventilator 07/22/19 07:30 81 26 120/62 (81) 100 07/22/19 07:10 81 26 100 Mechanical Ventilator 45 81 26 45 07/22/19 07:00 119/68 07/22/19 07:00 26 119/62 Mechanical Ventilator 45 07/22/19 07:00 81 25 125/67 (86) 100 07/22/19 06:59 26 121/58 Mechanical Ventilator 45 07/22/19 06:30 80 26 105/62 (76) 100 07/22/19 06:00 85 26 126/78 (94) 100 07/22/19 06:00 126/78 07/22/19 06:00 26 126/78 Mechanical Ventilator 45 07/22/19 05:30 82 25 125/68 (87) 100 07/22/19 05:23 136/72 07/22/19 05:00 76 26 109/62 (78) 100 07/22/19 05:00 109/62 07/22/19 05:00 26 109/62 Mechanical Ventilator 45 07/22/19 04:30 81 26 114/66 (82) 100 07/22/19 04:00 45 07/22/19 04:00 99.1 80 26 110/64 (79) 100 07/22/19 04:00 81 07/22/19 04:00 Mechanical Ventilator 07/22/19 03:30 80 26 118/61 (80) 100 07/22/19 03:00 83 25 126/67 (86) 100 07/22/19 03:00 126/67 07/22/19 03:00 26 126/67 Mechanical Ventilator 45 07/22/19 02:59 90 26 100 Mechanical Ventilator 45 92 26 45 07/22/19 02:30 86 28 130/64 (86) 98 07/22/19 02:00 133/64 07/22/19 02:00 26 133/64 Mechanical Ventilator 45 07/22/19 02:00 88 24 133/64 (87) 100 07/22/19 01:30 83 26 109/68 (82) 100 07/22/19 01:00 81 28 115/66 (82) 100 07/22/19 01:00 115/66 07/22/19 01:00 26 115/66 Mechanical Ventilator 45 07/22/19 00:30 87 27 105/66 (79) 100 07/22/19 00:00 Mechanical Ventilator 07/22/19 00:00 97.9 91 25 131/78 (95) 100 07/22/19 00:00 131/78 07/22/19 00:00 26 131/78 Mechanical Ventilator 45 07/21/19 23:30 91 25 113/87 (96) 100 07/21/19 23:08 96 32 100 Mechanical Ventilator 45 100 31 45 07/21/19 23:00 146/98 07/21/19 23:00 24 146/98 Mechanical Ventilator 45 07/21/19 23:00 96 24 146/98 (114) 100 07/21/19 22:30 88 31 101/59 (73) 100 07/21/19 22:00 85 26 93/67 (76) 100 07/21/19 22:00 93/67 07/21/19 22:00 26 93/67 Mechanical Ventilator 45 07/21/19 21:30 88 26 86/60 (69) 100 07/21/19 21:00 96/56 07/21/19 21:00 26 96/56 Mechanical Ventilator 45 07/21/19 21:00 105 23 96/56 (69) 100 07/21/19 20:30 97 30 103/81 (88) 100 07/21/19 20:00 105 07/21/19 20:00 123/98 07/21/19 20:00 27 123/98 Mechanical Ventilator 45 07/21/19 20:00 97.9 104 24 123/98 (106) 100 07/21/19 20:00 Mechanical Ventilator 07/21/19 20:00 45 07/21/19 19:31 105 31 100 Mechanical Ventilator 45 106 31 45 07/21/19 19:30 106 21 152/79 (103) 100 07/21/19 19:00 141/94 07/21/19 19:00 24 141/94 Mechanical Ventilator 45 07/21/19 19:00 99 22 143/106 (118) 100 07/21/19 18:30 101 24 138/79 (98) 100 07/21/19 18:00 155/71 07/21/19 18:00 24 155/71 Mechanical Ventilator 45 07/21/19 18:00 92 22 131/68 (89) 100 07/21/19 17:30 102 24 94/66 (75) 100 07/21/19 17:00 115/77 07/21/19 17:00 24 115/77 Mechanical Ventilator 45 07/21/19 17:00 96 25 99/58 (72) 100 07/21/19 16:30 94 12 116/67 (83) 100 07/21/19 16:00 45 07/21/19 16:00 Mechanical Ventilator 07/21/19 16:00 98 07/21/19 16:00 99.3 90 26 96/59 (71) 100 07/21/19 16:00 96/59 07/21/19 16:00 24 96/59 Mechanical Ventilator 45 07/21/19 15:30 84 27 117/67 (84) 100 07/21/19 15:14 92 26 100 Mechanical Ventilator 45 91 26 50 07/21/19 15:00 90 27 98/63 (75) 100 07/21/19 15:00 98/63 07/21/19 15:00 24 98/63 Mechanical Ventilator 45 07/21/19 14:30 88 26 106/70 (82) 100 07/21/19 14:26 24 111/77 Mechanical Ventilator 45 07/21/19 14:00 94 24 135/80 (98) 100 07/21/19 14:00 135/80 07/21/19 14:00 24 135/80 Mechanical Ventilator 45 07/21/19 13:45 92 26 132/70 (90) 100 07/21/19 13:30 136/70 07/21/19 13:30 24 136/70 Mechanical Ventilator 45 07/21/19 13:30 93 23 136/70 (92) 100 07/21/19 13:15 86 26 141/72 (95) 100 07/21/19 13:00 89 24 130/80 (97) 100 07/21/19 13:00 130/80 07/21/19 13:00 24 130/80 Mechanical Ventilator 45 07/21/19 12:30 84 26 131/81 (98) 100 07/21/19 12:00 97.5 87 25 144/88 (106) 100 07/21/19 12:00 45 07/21/19 12:00 Mechanical Ventilator 07/21/19 12:00 91 07/21/19 12:00 144/88 07/21/19 12:00 28 144/88 Mechanical Ventilator 45 07/21/19 11:30 91 26 136/75 (95) 100 07/21/19 11:00 95 26 130/77 (94) 100 07/21/19 11:00 130/77 07/21/19 11:00 31 130/77 Mechanical Ventilator 45 07/21/19 10:53 92 26 100 Mechanical Ventilator 45 88 26 50 07/21/19 10:30 91 26 96/62 (73) 100 07/21/19 10:00 103/64 07/21/19 10:00 26 103/64 Mechanical Ventilator 45 07/21/19 10:00 90 26 103/64 (77) 100 07/21/19 09:30 89 26 102/70 (81) 100 07/21/19 09:08 100 07/21/19 09:05 45 07/21/19 09:00 89 29 121/79 (93) 100 07/21/19 09:00 121/79 07/21/19 09:00 29 121/79 Mechanical Ventilator 45 Intake and Output 07/22/19 07/23/19 18:59 06:59 Intake Total 915.0 ml 937.50 ml Balance 915.0 ml 937.50 ml Free Water 90 ml 30 ml IV Total 405.0 ml 287.50 ml Tube Feeding 420 ml 420 ml Other 200 ml # Bowel Movements 2 2 Labs Test 07/21/19 04:00 07/22/19 04:00 07/23/19 04:00 Random Vancomycin Level 25.5 ug/mL 24.1 ug/mL White Blood Count 25.9 K/UL (4.8-10.8) 17.4 K/UL (4.8-10.8) Red Blood Count 3.52 M/UL (4.70-6.10) 3.06 M/UL (4.70-6.10) Hemoglobin 10.2 G/DL (14.2-18.0) 8.8 G/DL (14.2-18.0) Hematocrit 31.1 % (42.0-52.0) 28.9 % (42.0-52.0) Mean Corpuscular Volume 88 FL (80-99) 95 FL (80-99) Mean Corpuscular Hemoglobin 29.0 PG (27.0-31.0) 28.7 PG (27.0-31.0) Mean Corpuscular Hemoglobin Concent 32.9 G/DL (32.0-36.0) 30.4 G/DL (32.0-36.0) Red Cell Distribution Width 15.9 % (11.6-14.8) 16.3 % (11.6-14.8) Platelet Count 315 K/UL (150-450) 244 K/UL (150-450) Mean Platelet Volume 6.7 FL (6.5-10.1) 8.0 FL (6.5-10.1) Neutrophils (%) (Auto) % (45.0-75.0) 80.5 % (45.0-75.0) Lymphocytes (%) (Auto) % (20.0-45.0) 8.2 % (20.0-45.0) Monocytes (%) (Auto) % (1.0-10.0) 6.4 % (1.0-10.0) Eosinophils (%) (Auto) % (0.0-3.0) 4.2 % (0.0-3.0) Basophils (%) (Auto) % (0.0-2.0) 0.6 % (0.0-2.0) Differential Total Cells Counted 100 Neutrophils % (Manual) 92 % (45-75) Lymphocytes % (Manual) 6 % (20-45) Monocytes % (Manual) 2 % (1-10) Eosinophils % (Manual) 0 % (0-3) Basophils % (Manual) 0 % (0-2) Band Neutrophils 0 % (0-8) Platelet Estimate Adequate Platelet Morphology Normal Hypochromasia 1+ Anisocytosis 1+ Sodium Level 134 MMOL/L (136-145) 136 MMOL/L (136-145) Potassium Level 3.7 MMOL/L (3.5-5.1) 3.7 MMOL/L (3.5-5.1) Chloride Level 92 MMOL/L (98-107) 93 MMOL/L (98-107) Carbon Dioxide Level 26 MMOL/L (21-32) 27 MMOL/L (21-32) Anion Gap 16 mmol/L (5-15) 16 mmol/L (5-15) Blood Urea Nitrogen 81 mg/dL (7-18) 86 mg/dL (7-18) Creatinine 9.0 MG/DL (0.55-1.30) 9.9 MG/DL (0.55-1.30) Estimat Glomerular Filtration Rate 5.9 mL/min (>60) 5.3 mL/min (>60) Glucose Level 289 MG/DL (74-106) 155 MG/DL (74-106) Calcium Level 9.3 MG/DL (8.5-10.1) 9.5 MG/DL (8.5-10.1) Phosphorus Level 3.7 MG/DL (2.5-4.9) 3.7 MG/DL (2.5-4.9) Magnesium Level 2.5 MG/DL (1.8-2.4) 2.8 MG/DL (1.8-2.4) Total Bilirubin 0.4 MG/DL (0.2-1.0) 0.4 MG/DL (0.2-1.0) Aspartate Amino Transf (AST/SGOT) 20 U/L (15-37) 15 U/L (15-37) Alanine Aminotransferase (ALT/SGPT) 12 U/L (12-78) 11 U/L (12-78) Alkaline Phosphatase 179 U/L (46-116) 148 U/L (46-116) C-Reactive Protein, Quantitative 7.0 mg/dL (0.00-0.90) Pro-B-Type Natriuretic Peptide 78992 pg/mL (0-125) Total Protein 8.4 G/DL (6.4-8.2) 8.0 G/DL (6.4-8.2) Albumin 2.7 G/DL (3.4-5.0) 2.8 G/DL (3.4-5.0) Globulin 5.7 g/dL 5.2 g/dL Albumin/Globulin Ratio 0.5 (1.0-2.7) 0.5 (1.0-2.7) Height (Feet): 6 Height (Inches): 1.00 Weight (Pounds): 187 Objective General: nv, confused, sedated Heent: bilateral eye normal inspection, bilateral eye PERRL ++Ng Respiratory: normal breath sounds, no respiratory distress, intubated/vent +++ trach+++ Cardiovascular: regular rate, rhythm, no edema Gastrointestinal: normal inspection, soft, non-distended, peg+ Rectal: deferred Musculoskeletal: normal range of motion, non-tender, R fem cath++ Neurologic: alert, motor strength/tone normal, sensory intact, responsive, speech normal Skin: Decubitus/Ulcer - See RN skin exam. : jamaal+ Greg Cabral MD Jul 23, 2019 08:58
--- NOTE | 2019-07-23 11:21 | Infectious Diseases Prog Note ---
Assessment/Plan Assessment/Plan IMPRESSION: 1. COVID19 pneumonia Positive: 05/27, 05/31 , 06/05, 06/09 ,06/17, 06/19, 06/23, 06/27, 07/03, 07/15 2. MRSA carrier. 3. Chronic kidney disease , end-stage renal disease. 4. COPD. 5. Hypertension. 6. Anemia. 7. Hypothyroidism. 8. Hyperlipidemia. 9. Major depression. 10. Leukocytosis 11. Hypotension 12. Hepatitis C 13. Hyperuricemia 14. Diarrhea 15. septic shock 16. Leukocytosis improving 17. Pneumonia with Staph aureus ( MRSA) 18. Bacteremia with Staph coagulase negative RECOMMENDATIONS: Continue IV Vancomycin Case was D/W surgeon yesterday Subjective ROS Limited/Unobtainable: Yes Constitutional: Denies: fever Cardiovascular: Reports: other - on Levophed 4 jermaine Allergies: Coded Allergies: No Known Allergies (Unverified , 05/28/19) Objective Vital Signs Last 24 Hour Vital Signs Date Time Temp Pulse Resp B/P (MAP) Pulse Ox O2 Delivery O2 Flow Rate FiO2 07/23/19 10:52 70 26 100 Mechanical Ventilator 40 67 26 40 07/23/19 09:00 70 16 117/63 (81) 99 07/23/19 08:30 67 27 117/67 (84) 100 07/23/19 08:00 Mechanical Ventilator 07/23/19 08:00 98.2 66 26 95/57 (70) 100 07/23/19 08:00 45 07/23/19 07:30 71 25 128/59 (82) 100 07/23/19 07:29 100 07/23/19 07:29 73 26 100 Mechanical Ventilator 45 71 26 45 07/23/19 07:00 67 26 107/57 (74) 100 07/23/19 06:30 65 25 118/58 (78) 100 07/23/19 06:30 65 26 07/23/19 06:00 63 26 114/70 (85) 100 07/23/19 06:00 118/58 07/23/19 06:00 26 118/58 Mechanical Ventilator 45 07/23/19 05:30 70 25 107/60 (76) 100 07/23/19 05:00 70 26 106/62 (77) 100 07/23/19 05:00 106/62 07/23/19 05:00 26 106/62 Mechanical Ventilator 45 07/23/19 04:30 75 19 134/69 (90) 100 07/23/19 04:00 98.3 68 26 121/64 (83) 100 07/23/19 04:00 121/64 07/23/19 04:00 26 121/64 Mechanical Ventilator 45 07/23/19 04:00 Mechanical Ventilator 07/23/19 04:00 45 07/23/19 04:00 74 07/23/19 03:30 63 26 84/52 (63) 100 07/23/19 03:10 69 28 100 Mechanical Ventilator 45 68 26 45 07/23/19 03:00 67 26 92/47 (62) 100 07/23/19 03:00 92/47 07/23/19 03:00 26 92/47 Mechanical Ventilator 45 07/23/19 02:30 74 26 108/57 (74) 100 07/23/19 02:00 73 26 105/65 (78) 97 07/23/19 02:00 105/65 07/23/19 02:00 26 105/65 Mechanical Ventilator 45 07/23/19 01:30 67 26 103/57 (72) 100 07/23/19 01:00 67 26 97/57 (70) 100 07/23/19 01:00 97/57 07/23/19 01:00 26 97/50 Mechanical Ventilator 45 07/23/19 00:30 74 24 106/58 (74) 100 07/23/19 00:00 Mechanical Ventilator 07/23/19 00:00 98.5 72 25 123/58 (79) 100 07/23/19 00:00 123/58 07/23/19 00:00 25 123/58 Mechanical Ventilator 45 07/22/19 23:30 74 25 128/70 (89) 100 07/22/19 23:14 75 26 100 Mechanical Ventilator 45 77 26 45 07/22/19 23:00 137/70 07/22/19 23:00 26 137/70 Mechanical Ventilator 45 07/22/19 23:00 70 26 137/70 (92) 100 07/22/19 22:57 25 127/70 Mechanical Ventilator 45 07/22/19 22:30 71 26 127/70 (89) 100 07/22/19 22:00 71 13 135/69 (91) 100 07/22/19 22:00 135/69 07/22/19 22:00 13 135/69 Mechanical Ventilator 45 07/22/19 21:30 75 24 108/62 (77) 100 07/22/19 21:00 73 25 105/64 (78) 100 07/22/19 21:00 105/64 07/22/19 21:00 25 105/64 Mechanical Ventilator 45 07/22/19 20:30 74 26 108/72 (84) 100 07/22/19 20:09 84 26 100 Mechanical Ventilator 45 85 26 45 07/22/19 20:00 98.9 74 27 117/62 (80) 100 07/22/19 20:00 117/62 07/22/19 20:00 27 117/62 Mechanical Ventilator 45 07/22/19 20:00 45 07/22/19 20:00 75 07/22/19 20:00 Mechanical Ventilator 07/22/19 19:00 112/63 07/22/19 19:00 26 112/63 Mechanical Ventilator 45 07/22/19 19:00 76 26 112/63 (79) 100 07/22/19 18:30 80 26 117/69 (85) 100 07/22/19 18:00 75 25 113/58 (76) 94 07/22/19 18:00 110/69 07/22/19 18:00 18 110/69 Mechanical Ventilator 45 07/22/19 17:30 77 25 121/54 (76) 100 07/22/19 17:00 160/70 07/22/19 17:00 18 160/70 Mechanical Ventilator 45 07/22/19 17:00 77 25 109/56 (73) 100 07/22/19 16:30 78 25 112/54 (73) 100 07/22/19 16:00 Mechanical Ventilator 07/22/19 16:00 80 25 111/56 (74) 100 07/22/19 16:00 76 07/22/19 16:00 45 07/22/19 16:00 120/62 07/22/19 16:00 25 120/62 Mechanical Ventilator 45 07/22/19 15:30 77 27 120/62 (81) 100 07/22/19 15:10 88 26 100 Mechanical Ventilator 45 88 26 45 07/22/19 15:00 91/54 07/22/19 15:00 26 91/54 Mechanical Ventilator 45 07/22/19 15:00 72 26 89/54 (66) 100 07/22/19 14:30 80 21 116/58 (77) 100 07/22/19 14:00 79 22 122/59 (80) 100 07/22/19 14:00 122/59 07/22/19 14:00 22 122/59 Mechanical Ventilator 45 07/22/19 13:30 75 26 99/59 (72) 100 07/22/19 13:00 80 25 100/56 (71) 100 07/22/19 13:00 100/56 07/22/19 13:00 25 100/56 Mechanical Ventilator 45 07/22/19 12:30 91 25 111/66 (81) 100 07/22/19 12:15 89 25 120/67 (84) 92 07/22/19 12:00 Mechanical Ventilator 07/22/19 12:00 99.6 78 27 147/65 (92) 100 07/22/19 12:00 45 07/22/19 12:00 78 07/22/19 12:00 147/65 07/22/19 12:00 27 120/67 Mechanical Ventilator 45 07/22/19 11:30 79 25 130/77 (94) 100 Height (Feet): 6 Height (Inches): 1.00 Weight (Pounds): 187 HEENT: status post trach Respiratory/Chest: other - on Ventilator, FIO2=45% Cardiovascular: normal rate, other - HD & Central line Abdomen: soft, non tender, other - GT feeding Neurologic/Psychiatric: disoriented Microbiology Date/Time Source Procedure Growth Status 07/21/19 04:00 Blood Blood Culture - Preliminary NO GROWTH AFTER 48 HOURS Resulted 07/21/19 04:00 Blood Blood Culture - Preliminary NO GROWTH AFTER 48 HOURS Resulted 07/20/19 13:00 Blood Blood Culture - Preliminary Staphylococcus Sp Coag Neg Resulted 07/20/19 13:00 Blood Blood Culture - Preliminary Staphylococcus Sp Coag Neg Resulted Laboratory Tests Test 07/23/19 04:00 White Blood Count 17.4 K/UL (4.8-10.8) H Red Blood Count 3.06 M/UL (4.70-6.10) L Hemoglobin 8.8 G/DL (14.2-18.0) L Hematocrit 28.9 % (42.0-52.0) L Mean Corpuscular Volume 95 FL (80-99) Mean Corpuscular Hemoglobin 28.7 PG (27.0-31.0) Mean Corpuscular Hemoglobin Concent 30.4 G/DL (32.0-36.0) L Red Cell Distribution Width 16.3 % (11.6-14.8) H Platelet Count 244 K/UL (150-450) Mean Platelet Volume 8.0 FL (6.5-10.1) Neutrophils (%) (Auto) 80.5 % (45.0-75.0) H Lymphocytes (%) (Auto) 8.2 % (20.0-45.0) L Monocytes (%) (Auto) 6.4 % (1.0-10.0) Eosinophils (%) (Auto) 4.2 % (0.0-3.0) H Basophils (%) (Auto) 0.6 % (0.0-2.0) Sodium Level 136 MMOL/L (136-145) Potassium Level 3.7 MMOL/L (3.5-5.1) Chloride Level 93 MMOL/L (98-107) L Carbon Dioxide Level 27 MMOL/L (21-32) Anion Gap 16 mmol/L (5-15) H Blood Urea Nitrogen 86 mg/dL (7-18) H Creatinine 9.9 MG/DL (0.55-1.30) H Estimat Glomerular Filtration Rate 5.3 mL/min (>60) Glucose Level 155 MG/DL (74-106) #H Calcium Level 9.5 MG/DL (8.5-10.1) Phosphorus Level 3.7 MG/DL (2.5-4.9) Magnesium Level 2.8 MG/DL (1.8-2.4) H Total Bilirubin 0.4 MG/DL (0.2-1.0) Aspartate Amino Transf (AST/SGOT) 15 U/L (15-37) Alanine Aminotransferase (ALT/SGPT) 11 U/L (12-78) L Alkaline Phosphatase 148 U/L (46-116) H Total Protein 8.0 G/DL (6.4-8.2) Albumin 2.8 G/DL (3.4-5.0) L Globulin 5.2 g/dL Albumin/Globulin Ratio 0.5 (1.0-2.7) L Current Medications Medications (Trade) Dose Ordered Sig/Anthony Route PRN Reason Start Time Stop Time Status Last Admin Dose Admin Acetaminophen (Tylenol) 650 mg Q4H PRN NG For Pain 07/11/19 08:00 08/10/19 07:59 07/20/19 18:21 Albuterol Sulfate (Proventil MDI) 2 puff Q4HRT INH 06/06/19 23:00 08/30/19 18:59 07/23/19 10:52 Chlorhexidine Gluconate (Michelle-Hex 2%) 1 applic DAILY@2000 TOPIC 06/07/19 20:00 09/05/19 19:59 07/22/19 20:03 Dextrose (Dextrose 50%) 25 ml Q30M PRN IV Hypoglycemia 06/20/19 19:30 09/18/19 19:29 Dextrose (Dextrose 50%) 50 ml Q30M PRN IV Hypoglycemia 06/20/19 19:30 09/18/19 19:29 Dopamine HCl/ Dextrose 250 ml @ 0 mls/hr Q24H PRN IV For hypotension 06/13/19 08:15 09/11/19 08:14 07/17/19 08:46 Enoxaparin Sodium (Lovenox) 30 mg DAILY SUBQ 06/07/19 09:00 08/27/19 08:59 07/23/19 08:06 Epoetin Aftab (Epoetin Aftab(ESRD on dialysis)) 10,000 unit FRI-FRI-FRI SUBQ 06/07/19 21:00 08/31/19 20:59 07/19/19 21:00 Fentanyl Citrate 250 ml @ 0 mls/hr Q24H IV 07/19/19 14:06 10/17/19 14:05 07/22/19 22:57 Haloperidol Lactate 5 mg/ Dextrose 56 ml @ 224 mls/hr Q6H PRN IVPB Agitation 07/11/19 15:00 08/25/19 14:59 07/15/19 02:36 Hydralazine HCl (Apresoline) 10 mg Q4H PRN IV Blood pressure over 160 systol 06/07/19 10:15 09/05/19 10:14 Insulin Aspart (NovoLOG) EVERY 6 HOURS SUBQ 06/21/19 00:00 09/19/19 00:00 07/23/19 06:00 Midodrine (Pro-Amatine) 10 mg Q8HR ORAL 07/17/19 14:00 10/15/19 10:29 07/23/19 05:20 Norepinephrine Bitartrate 16 mg/ Dextrose 500 ml @ 0 mls/hr Q24H IV 07/20/19 22:00 08/19/19 21:59 07/22/19 05:23 Sevelamer Carbonate (Renvela) 2,400 mg Q6HR NG 07/14/19 12:00 10/12/19 13:59 07/23/19 05:20 Vancomycin HCl ([facility] pharmacy to dose) 1 ea DAILY PRN MISC Per rx protocol 07/20/19 10:45 08/19/19 10:44 Ted Leyva MD Jul 23, 2019 11:21
--- NOTE | 2019-07-23 12:02 | Cardiac Electrophysiology PN ---
Assessment/Plan Assessment/Plan 1. Elevated troponin. Low level and flat due to renal failure. On Aspirin. EF 60 %. 2. Recurrent fever and Septic shock. On Levo 4 mcg, Midodrine 10 tid and Abx 3. ESRD, on HD per Dr. Cole. 4. Resp failure due to COVID-19 positive pneumonia. On the Vent with 40% Fio2. S/P Tracheostomy 07/08/19 5. Dysphagia, S/P PEG 07/13/19 6. COPD. 7. Anemia. JHONY RN Subjective Subjective In ICU, on Vent via trach with 40% Fio2. Levo down to 4 mcg, Fentanyl 100 and Midodrine. Objective Last 24 Hour Vital Signs Date Time Temp Pulse Resp B/P (MAP) Pulse Ox O2 Delivery O2 Flow Rate FiO2 07/23/19 10:52 70 26 100 Mechanical Ventilator 40 67 26 40 07/23/19 09:00 70 16 117/63 (81) 99 07/23/19 08:30 67 27 117/67 (84) 100 07/23/19 08:00 Mechanical Ventilator 07/23/19 08:00 98.2 66 26 95/57 (70) 100 07/23/19 08:00 45 07/23/19 07:30 71 25 128/59 (82) 100 07/23/19 07:29 100 07/23/19 07:29 73 26 100 Mechanical Ventilator 45 71 26 45 07/23/19 07:00 67 26 107/57 (74) 100 07/23/19 06:30 65 25 118/58 (78) 100 07/23/19 06:30 65 26 07/23/19 06:00 63 26 114/70 (85) 100 07/23/19 06:00 118/58 07/23/19 06:00 26 118/58 Mechanical Ventilator 45 07/23/19 05:30 70 25 107/60 (76) 100 07/23/19 05:00 70 26 106/62 (77) 100 07/23/19 05:00 106/62 07/23/19 05:00 26 106/62 Mechanical Ventilator 45 07/23/19 04:30 75 19 134/69 (90) 100 07/23/19 04:00 98.3 68 26 121/64 (83) 100 07/23/19 04:00 121/64 07/23/19 04:00 26 121/64 Mechanical Ventilator 45 07/23/19 04:00 Mechanical Ventilator 07/23/19 04:00 45 07/23/19 04:00 74 07/23/19 03:30 63 26 84/52 (63) 100 07/23/19 03:10 69 28 100 Mechanical Ventilator 45 68 26 45 07/23/19 03:00 67 26 92/47 (62) 100 07/23/19 03:00 92/47 07/23/19 03:00 26 92/47 Mechanical Ventilator 45 07/23/19 02:30 74 26 108/57 (74) 100 07/23/19 02:00 73 26 105/65 (78) 97 07/23/19 02:00 105/65 07/23/19 02:00 26 105/65 Mechanical Ventilator 45 07/23/19 01:30 67 26 103/57 (72) 100 07/23/19 01:00 67 26 97/57 (70) 100 07/23/19 01:00 97/57 07/23/19 01:00 26 97/50 Mechanical Ventilator 45 07/23/19 00:30 74 24 106/58 (74) 100 07/23/19 00:00 Mechanical Ventilator 07/23/19 00:00 98.5 72 25 123/58 (79) 100 07/23/19 00:00 123/58 07/23/19 00:00 25 123/58 Mechanical Ventilator 45 07/22/19 23:30 74 25 128/70 (89) 100 07/22/19 23:14 75 26 100 Mechanical Ventilator 45 77 26 45 07/22/19 23:00 137/70 07/22/19 23:00 26 137/70 Mechanical Ventilator 45 07/22/19 23:00 70 26 137/70 (92) 100 07/22/19 22:57 25 127/70 Mechanical Ventilator 45 07/22/19 22:30 71 26 127/70 (89) 100 07/22/19 22:00 71 13 135/69 (91) 100 07/22/19 22:00 135/69 07/22/19 22:00 13 135/69 Mechanical Ventilator 45 07/22/19 21:30 75 24 108/62 (77) 100 07/22/19 21:00 73 25 105/64 (78) 100 07/22/19 21:00 105/64 6/11/20 21:00 25 105/64 Mechanical Ventilator 45 07/22/19 20:30 74 26 108/72 (84) 100 07/22/19 20:09 84 26 100 Mechanical Ventilator 45 85 26 45 07/22/19 20:00 98.9 74 27 117/62 (80) 100 07/22/19 20:00 117/62 07/22/19 20:00 27 117/62 Mechanical Ventilator 45 07/22/19 20:00 45 07/22/19 20:00 75 07/22/19 20:00 Mechanical Ventilator 07/22/19 19:00 112/63 07/22/19 19:00 26 112/63 Mechanical Ventilator 45 07/22/19 19:00 76 26 112/63 (79) 100 07/22/19 18:30 80 26 117/69 (85) 100 07/22/19 18:00 75 25 113/58 (76) 94 07/22/19 18:00 110/69 07/22/19 18:00 18 110/69 Mechanical Ventilator 45 07/22/19 17:30 77 25 121/54 (76) 100 07/22/19 17:00 160/70 07/22/19 17:00 18 160/70 Mechanical Ventilator 45 07/22/19 17:00 77 25 109/56 (73) 100 07/22/19 16:30 78 25 112/54 (73) 100 07/22/19 16:00 Mechanical Ventilator 07/22/19 16:00 80 25 111/56 (74) 100 07/22/19 16:00 76 07/22/19 16:00 45 07/22/19 16:00 120/62 07/22/19 16:00 25 120/62 Mechanical Ventilator 45 07/22/19 15:30 77 27 120/62 (81) 100 07/22/19 15:10 88 26 100 Mechanical Ventilator 45 88 26 45 07/22/19 15:00 91/54 07/22/19 15:00 26 91/54 Mechanical Ventilator 45 07/22/19 15:00 72 26 89/54 (66) 100 07/22/19 14:30 80 21 116/58 (77) 100 07/22/19 14:00 79 22 122/59 (80) 100 07/22/19 14:00 122/59 07/22/19 14:00 22 122/59 Mechanical Ventilator 45 07/22/19 13:30 75 26 99/59 (72) 100 07/22/19 13:00 80 25 100/56 (71) 100 07/22/19 13:00 100/56 07/22/19 13:00 25 100/56 Mechanical Ventilator 45 07/22/19 12:30 91 25 111/66 (81) 100 07/22/19 12:15 89 25 120/67 (84) 92 Intake and Output 07/22/19 07/23/19 19:00 07:00 Intake Total 937.5 ml 877.50 ml Balance 937.5 ml 877.50 ml Free Water 120 ml IV Total 397.5 ml 257.50 ml Tube Feeding 420 ml 420 ml Other 200 ml # Bowel Movements 2 2 Laboratory Tests Test 07/23/19 04:00 White Blood Count 17.4 K/UL (4.8-10.8) H Red Blood Count 3.06 M/UL (4.70-6.10) L Hemoglobin 8.8 G/DL (14.2-18.0) L Hematocrit 28.9 % (42.0-52.0) L Mean Corpuscular Volume 95 FL (80-99) Mean Corpuscular Hemoglobin 28.7 PG (27.0-31.0) Mean Corpuscular Hemoglobin Concent 30.4 G/DL (32.0-36.0) L Red Cell Distribution Width 16.3 % (11.6-14.8) H Platelet Count 244 K/UL (150-450) Mean Platelet Volume 8.0 FL (6.5-10.1) Neutrophils (%) (Auto) 80.5 % (45.0-75.0) H Lymphocytes (%) (Auto) 8.2 % (20.0-45.0) L Monocytes (%) (Auto) 6.4 % (1.0-10.0) Eosinophils (%) (Auto) 4.2 % (0.0-3.0) H Basophils (%) (Auto) 0.6 % (0.0-2.0) Sodium Level 136 MMOL/L (136-145) Potassium Level 3.7 MMOL/L (3.5-5.1) Chloride Level 93 MMOL/L (98-107) L Carbon Dioxide Level 27 MMOL/L (21-32) Anion Gap 16 mmol/L (5-15) H Blood Urea Nitrogen 86 mg/dL (7-18) H Creatinine 9.9 MG/DL (0.55-1.30) H Estimat Glomerular Filtration Rate 5.3 mL/min (>60) Glucose Level 155 MG/DL (74-106) #H Calcium Level 9.5 MG/DL (8.5-10.1) Phosphorus Level 3.7 MG/DL (2.5-4.9) Magnesium Level 2.8 MG/DL (1.8-2.4) H Total Bilirubin 0.4 MG/DL (0.2-1.0) Aspartate Amino Transf (AST/SGOT) 15 U/L (15-37) Alanine Aminotransferase (ALT/SGPT) 11 U/L (12-78) L Alkaline Phosphatase 148 U/L (46-116) H Total Protein 8.0 G/DL (6.4-8.2) Albumin 2.8 G/DL (3.4-5.0) L Globulin 5.2 g/dL Albumin/Globulin Ratio 0.5 (1.0-2.7) L Microbiology Date/Time Source Procedure Growth Status 07/21/19 04:00 Blood Blood Culture - Preliminary NO GROWTH AFTER 48 HOURS Resulted 07/21/19 04:00 Blood Blood Culture - Preliminary NO GROWTH AFTER 48 HOURS Resulted 07/20/19 13:00 Blood Blood Culture - Preliminary Staphylococcus Sp Coag Neg Resulted 07/20/19 13:00 Blood Blood Culture - Preliminary Staphylococcus Sp Coag Neg Resulted Objective HEAD AND NECK: No JVD. Tracheostomy in place. Left IJ HD catheter now in place LUNGS: Decreased breath sounds. CARDIOVASCULAR: Regular S1 and S2. Tachycardic. ABDOMEN: Soft. PEG in place EXTREMITIES: No pitting edema. Left FV Gio Engle MD Jul 23, 2019 12:02
--- NOTE | 2019-07-23 12:18 | General Progress Note ---
Assessment/Plan Status: progressing, unchanged Assessment/Plan: 1. Diabetes. 2. Hypertension. 3. Coronary artery disease. 4. COPD. 5. Psychiatric disorder with schizophrenia. 6. History of hepatitis C. 7. HLP. 8. Chronic kidney disease, now with acute renal failure. 9. Anemia. 10. Hypothyroidism. 11. Spinal stenosis. 12. Constipation. 13. GERD. 14. COVID positive HD per nephrology fu labs icu care s/p PEG GTF monitor for residuals Subjective ROS Limited/Unobtainable: No Allergies: Coded Allergies: No Known Allergies (Unverified , 05/28/19) Objective Last 24 Hour Vital Signs Date Time Temp Pulse Resp B/P (MAP) Pulse Ox O2 Delivery O2 Flow Rate FiO2 07/23/19 10:52 70 26 100 Mechanical Ventilator 40 67 26 40 07/23/19 09:00 70 16 117/63 (81) 99 07/23/19 08:30 67 27 117/67 (84) 100 07/23/19 08:00 Mechanical Ventilator 07/23/19 08:00 98.2 66 26 95/57 (70) 100 07/23/19 08:00 45 07/23/19 07:30 71 25 128/59 (82) 100 07/23/19 07:29 100 07/23/19 07:29 73 26 100 Mechanical Ventilator 45 71 26 45 07/23/19 07:00 67 26 107/57 (74) 100 07/23/19 06:30 65 25 118/58 (78) 100 07/23/19 06:30 65 26 07/23/19 06:00 63 26 114/70 (85) 100 07/23/19 06:00 118/58 07/23/19 06:00 26 118/58 Mechanical Ventilator 45 07/23/19 05:30 70 25 107/60 (76) 100 07/23/19 05:00 70 26 106/62 (77) 100 07/23/19 05:00 106/62 07/23/19 05:00 26 106/62 Mechanical Ventilator 45 07/23/19 04:30 75 19 134/69 (90) 100 07/23/19 04:00 98.3 68 26 121/64 (83) 100 07/23/19 04:00 121/64 07/23/19 04:00 26 121/64 Mechanical Ventilator 45 07/23/19 04:00 Mechanical Ventilator 07/23/19 04:00 45 07/23/19 04:00 74 07/23/19 03:30 63 26 84/52 (63) 100 07/23/19 03:10 69 28 100 Mechanical Ventilator 45 68 26 45 07/23/19 03:00 67 26 92/47 (62) 100 07/23/19 03:00 92/47 07/23/19 03:00 26 92/47 Mechanical Ventilator 45 07/23/19 02:30 74 26 108/57 (74) 100 07/23/19 02:00 73 26 105/65 (78) 97 07/23/19 02:00 105/65 07/23/19 02:00 26 105/65 Mechanical Ventilator 45 07/23/19 01:30 67 26 103/57 (72) 100 07/23/19 01:00 67 26 97/57 (70) 100 07/23/19 01:00 97/57 07/23/19 01:00 26 97/50 Mechanical Ventilator 45 07/23/19 00:30 74 24 106/58 (74) 100 07/23/19 00:00 Mechanical Ventilator 07/23/19 00:00 98.5 72 25 123/58 (79) 100 07/23/19 00:00 123/58 07/23/19 00:00 25 123/58 Mechanical Ventilator 45 07/22/19 23:30 74 25 128/70 (89) 100 07/22/19 23:14 75 26 100 Mechanical Ventilator 45 77 26 45 07/22/19 23:00 137/70 07/22/19 23:00 26 137/70 Mechanical Ventilator 45 07/22/19 23:00 70 26 137/70 (92) 100 07/22/19 22:57 25 127/70 Mechanical Ventilator 45 07/22/19 22:30 71 26 127/70 (89) 100 07/22/19 22:00 71 13 135/69 (91) 100 07/22/19 22:00 135/69 07/22/19 22:00 13 135/69 Mechanical Ventilator 45 07/22/19 21:30 75 24 108/62 (77) 100 07/22/19 21:00 73 25 105/64 (78) 100 07/22/19 21:00 105/64 07/22/19 21:00 25 105/64 Mechanical Ventilator 45 07/22/19 20:30 74 26 108/72 (84) 100 07/22/19 20:09 84 26 100 Mechanical Ventilator 45 85 26 45 07/22/19 20:00 98.9 74 27 117/62 (80) 100 07/22/19 20:00 117/62 07/22/19 20:00 27 117/62 Mechanical Ventilator 45 07/22/19 20:00 45 07/22/19 20:00 75 07/22/19 20:00 Mechanical Ventilator 07/22/19 19:00 112/63 07/22/19 19:00 26 112/63 Mechanical Ventilator 45 07/22/19 19:00 76 26 112/63 (79) 100 07/22/19 18:30 80 26 117/69 (85) 100 07/22/19 18:00 75 25 113/58 (76) 94 07/22/19 18:00 110/69 07/22/19 18:00 18 110/69 Mechanical Ventilator 45 07/22/19 17:30 77 25 121/54 (76) 100 07/22/19 17:00 160/70 07/22/19 17:00 18 160/70 Mechanical Ventilator 45 07/22/19 17:00 77 25 109/56 (73) 100 07/22/19 16:30 78 25 112/54 (73) 100 07/22/19 16:00 Mechanical Ventilator 07/22/19 16:00 80 25 111/56 (74) 100 07/22/19 16:00 76 07/22/19 16:00 45 07/22/19 16:00 120/62 07/22/19 16:00 25 120/62 Mechanical Ventilator 45 07/22/19 15:30 77 27 120/62 (81) 100 07/22/19 15:10 88 26 100 Mechanical Ventilator 45 88 26 45 07/22/19 15:00 91/54 07/22/19 15:00 26 91/54 Mechanical Ventilator 45 07/22/19 15:00 72 26 89/54 (66) 100 07/22/19 14:30 80 21 116/58 (77) 100 07/22/19 14:00 79 22 122/59 (80) 100 07/22/19 14:00 122/59 07/22/19 14:00 22 122/59 Mechanical Ventilator 45 07/22/19 13:30 75 26 99/59 (72) 100 07/22/19 13:00 80 25 100/56 (71) 100 07/22/19 13:00 100/56 07/22/19 13:00 25 100/56 Mechanical Ventilator 45 07/22/19 12:30 91 25 111/66 (81) 100 Intake and Output 07/22/19 07/23/19 19:00 07:00 Intake Total 937.5 ml 877.50 ml Balance 937.5 ml 877.50 ml Free Water 120 ml IV Total 397.5 ml 257.50 ml Tube Feeding 420 ml 420 ml Other 200 ml # Bowel Movements 2 2 Laboratory Tests 07/23/19 04:00: White Blood Count 17.4H, Red Blood Count 3.06L, Hemoglobin 8.8L, Hematocrit 28.9L, Mean Corpuscular Volume 95, Mean Corpuscular Hemoglobin 28.7, Mean Corpuscular Hemoglobin Concent 30.4L, Red Cell Distribution Width 16.3H, Platelet Count 244, Mean Platelet Volume 8.0, Neutrophils (%) (Auto) 80.5H, Lymphocytes (%) (Auto) 8.2L, Monocytes (%) (Auto) 6.4, Eosinophils (%) (Auto) 4.2H, Basophils (%) (Auto) 0.6, Sodium Level 136, Potassium Level 3.7, Chloride Level 93L, Carbon Dioxide Level 27, Anion Gap 16H, Blood Urea Nitrogen 86H, Creatinine 9.9H, Estimat Glomerular Filtration Rate 5.3, Glucose Level 155#H, Calcium Level 9.5, Phosphorus Level 3.7, Magnesium Level 2.8H, Total Bilirubin 0.4, Aspartate Amino Transf (AST/SGOT) 15, Alanine Aminotransferase (ALT/SGPT) 11L, Alkaline Phosphatase 148H, Total Protein 8.0, Albumin 2.8L, Globulin 5.2, Albumin/Globulin Ratio 0.5L Height (Feet): 6 Height (Inches): 1.00 Weight (Pounds): 187 General Appearance: alert EENT: normal ENT inspection Neck: supple Cardiovascular: normal rate Respiratory/Chest: decreased breath sounds Abdomen: normal bowel sounds, non tender, soft Extremities: non-tender Marito Ramires MD Jul 23, 2019 12:18
--- NOTE | 2019-07-23 13:31 | Nephrology Progress Note ---
Assessment/Plan Problem List: (1) CASSANDRA (acute kidney injury) (2) Anemia in chronic kidney disease (CKD) (3) HTN (hypertension) (4) COVID-19 Assessment Acute renal failure most likely superimposed on chronic kidney disease Suspected COVID-19 virus infection Possible Pneumonia, lymphopenia, elevated AST Cardiomegaly, possible CHF COPD Hypertension Anemia, most likely related to chronic kidney disease Plan July 22: Labs reviewed. Due for dialysis today. Discussed with RN. Watch borderline low blood pressure. Discussed with dialysis nurse. July 21: Today's lab reviewed. Will arrange for dialysis tomorrow. Discussed with RN. Aim to keep the blood pressure above 100 systolic. Continue per consultants. July 20: Patient was dialyzed yesterday. Could not ultrafiltrate much due to low blood pressure. Discussed with SHANIQUE Dick today. No labs drawn today. Continue per consultants. July 19: Due for dialysis today. Discussed with SHANIQUE Dick. Continue per consultants. July 18: Dialyzed July 16. Will order dialysis tomorrow July 19. Continues to be on ventilator through trach. No labs done today. Continue per consultants. July 17: Dialyzed yesterday. Stable from renal standpoint of view. Remains full code. Status post trach on vent. Status post PEG. Continue per consultants. July 16: Dialysis today. Will resume Midodrin to prevent hypotension. Patient remains full code. July 15: Dialyzed yesterday, due for dialysis tomorrow. Labs and medication list reviewed. Continue per consultants. Patient remains full code. COVID-19 detected again. July 14: Patient currently on dialysis. This is continuation of dialysis from yesterday as yesterday's dialysis was cut short due to catheter malfunction. Labs and medication reviewed. Continue per consultants. July 13: Patient currently on hemodialysis. The dialysis catheter which is a intrajugular Kamlesh has poor flow. Will try TPA. Continue per consultants. July 12: Due for PEG today. Due for dialysis tomorrow. Continue per consultants. Discussed with RN. July 11: Plan for dialysis today. Discussed with RN. Data reviewed. July 10: Plan for dialysis tomorrow July 11. Waiting for consent to proceed with PEG. Continue per consultants. Medication reviewed. Labs reviewed. Discussed with RN. July 09: Dialyzed yesterday. Labs reviewed. Medication reviewed. Next hemodialysis July 11. July 08: Patient has tracheostomy now. Connected to ventilator. Due for dialysis today. Continue per consultants. Discussed with SHANIQUE Romero. July 07: Patient is due for tracheostomy today. Patient was last dialyzed July 05. Will order dialysis for tomorrow. July 06: Patient is intubated on ventilator however the plan is to extubate today. Patient was dialysis yesterday July 05. The dialysis time was cut short due to patient's respiratory distress. Only 1 L was removed during dialysis yesterday. Today's lab reviewed. Continue per consultants. Will arrange for dialysis as needed. July 05: Patient due for dialysis today. Remains intubated. Will schedule permacath placement in a.m. blood cultures on July 04 are negative. July 04: Patient was dialyzed yesterday. Due for dialysis tomorrow. Continues to be intubated. After tomorrow's dialysis will order a permacath. July 03: Dialysis is about to be started now Continues to be intubated Will plan to remove the femoral dialysis catheter and exchanged for a new temporary catheter per ID recommendation We will check surveillance blood culture tomorrow July 02: Patient was dialyzed yesterday and due for dialysis tomorrow Stable from renal standpoint W on dialysis Continue per consultants, weaning....... etc. July 01: Dialysis today Other status unchanged June 30: Due for dialysis tomorrow Remains intubated on ventilator Labs and medication reviewed Discussed with SHANIQUE Max from renal standpoint of view June 29: Dialyzed yesterday Due for dialysis tomorrow Stable from renal standpoint to view Keeps failing weaning process June 28: Patient due for dialysis today Stable from renal standpoint to view Continue per consultants June 27: Labs reviewed Due due for dialysis June 28 Discussed with SHANIQUE Dick Continue per consultants Remains intubated on ventilator June 26 Labs reviewed Dialyzed yesterday Started on weaning today Continue to monitor renal parameters June 25: On dialysis now Potassium supplement implemented Continue per consultants Next dialysis June 27June 15: Status unchanged Dialyzed yesterday will dialyze again tomorrow Potassium supplements given Discussed with RN June 23: Due dialysis today Status: Remains intubated on ventilator June 22: Status unchanged Dialyzed yesterday and duefordialysistomorrow Serum sodium stable today June 21 Remains intubated on ventilator Due dialysis today Emphasized high sodium bath for dialysis June 20: Remains intubated on ventilator Dialyzed June 19 next dialysis June 21 Serum sodium 128, will give 250 cc 3% saline Remains full code Discussed with RN Iron panel ordered June 19: Discussed with RN. Patient due for dialysis today. Continue pulmonary support. Remains full code. June 18: Patient dialyzed yesterday June 17 Serum sodium improved but still low Arrange for dialysis tomorrow June 19 Continue per consultants June 17: Due for dialysis today Today's lab reviewed, low serum sodium noted, Emphasized on high sodium bath to dialysis nurse Discussed with SHANIQUE Yuen June 16: Dialyzed yesterday Remains intubated Labs reviewed, serum sodium 131 Plan to dialyze tomorrow June 17 with high sodium bath Discussed with SHANIQUE Yuen June 15: Due for dialysis today Labs reviewed Discussed with RN Transfuse 1 unit of packed RBCs today for low hemoglobin of 7.1 June 5: Blood pressure well maintained Receive dialysis June 13 next hemodialysis June 15June 4: Discussed with RN in ICU Patient did not receive proper dialysis yesterday due to dialysis catheter malfunction Catheter to be adjusted today and dialyzed to be resumed today Continue per consultants Positive for COVID 28 June 2: Patient now intubated on mechanical ventilation Discussed with SHANIQUE Yuen, today June 12 Patient received dialysis yesterday June 10 next hemodialysis June 12 Blood pressure better maintained Today's labs reviewed Continue per consultants Previously patient received dialysis last evening June 05, next dialysis June 07 which was incomplete due to patient's hypotension Will start on midodrine for blood pressure support. Meanwhile continue other pressors as needed Previously Patient is doing poorly, septic, white blood cells are rising, Hypotension somewhat improved We will keep n.p.o. , NG tube for medications, and change medication to IV as needed Patient remains full code Monitor vancomycin level Previously: Patient pulled out his femoral catheter yesterday June 03 which was reinserted by Dr. Mast Patient scheduled for dialysis again June 04, which again was not done due to dialysis nurse citing catheter malfunction Meanwhile continue management per ID, pulmonary , and psych. Meanwhile white blood cell count is rising. Patient blood pressure borderline low. Will check ABG Previously May 31 : I believe patient need dialysis treatment He however needs to competency assessment if can make decisions or not I will communicate with Dr. Mulligan Previously: Per pulmonary and ID advice Adjust blood pressure medication Renal diet Anemia work-up 2D echocardiogram refused Kidney ultrasound refused Jules catheter Urine studies Per orders Subjective ROS Limited/Unobtainable: Yes Objective Objective Last 24 Hour Vital Signs Date Time Temp Pulse Resp B/P (MAP) Pulse Ox O2 Delivery O2 Flow Rate FiO2 07/23/19 12:00 106/61 07/23/19 11:00 105/63 07/23/19 10:52 70 26 100 Mechanical Ventilator 40 67 26 40 07/23/19 10:00 114/71 07/23/19 09:00 70 16 117/63 (81) 99 07/23/19 09:00 106/62 07/23/19 08:30 67 27 117/67 (84) 100 07/23/19 08:00 Mechanical Ventilator 07/23/19 08:00 98.2 66 26 95/57 (70) 100 07/23/19 08:00 45 07/23/19 08:00 117/67 07/23/19 07:30 71 25 128/59 (82) 100 07/23/19 07:29 100 07/23/19 07:29 73 26 100 Mechanical Ventilator 45 71 26 45 07/23/19 07:00 128/59 07/23/19 07:00 67 26 107/57 (74) 100 07/23/19 06:30 65 25 118/58 (78) 100 07/23/19 06:30 65 26 07/23/19 06:00 63 26 114/70 (85) 100 07/23/19 06:00 118/58 07/23/19 06:00 26 118/58 Mechanical Ventilator 45 07/23/19 05:30 70 25 107/60 (76) 100 07/23/19 05:00 70 26 106/62 (77) 100 07/23/19 05:00 106/62 07/23/19 05:00 26 106/62 Mechanical Ventilator 45 07/23/19 04:30 75 19 134/69 (90) 100 07/23/19 04:00 98.3 68 26 121/64 (83) 100 07/23/19 04:00 121/64 07/23/19 04:00 26 121/64 Mechanical Ventilator 45 07/23/19 04:00 Mechanical Ventilator 07/23/19 04:00 45 07/23/19 04:00 74 07/23/19 03:30 63 26 84/52 (63) 100 07/23/19 03:10 69 28 100 Mechanical Ventilator 45 68 26 45 07/23/19 03:00 67 26 92/47 (62) 100 07/23/19 03:00 92/47 07/23/19 03:00 26 92/47 Mechanical Ventilator 45 07/23/19 02:30 74 26 108/57 (74) 100 07/23/19 02:00 73 26 105/65 (78) 97 07/23/19 02:00 105/65 07/23/19 02:00 26 105/65 Mechanical Ventilator 45 07/23/19 01:30 67 26 103/57 (72) 100 07/23/19 01:00 67 26 97/57 (70) 100 07/23/19 01:00 97/57 07/23/19 01:00 26 97/50 Mechanical Ventilator 45 07/23/19 00:30 74 24 106/58 (74) 100 07/23/19 00:00 Mechanical Ventilator 07/23/19 00:00 98.5 72 25 123/58 (79) 100 07/23/19 00:00 123/58 07/23/19 00:00 25 123/58 Mechanical Ventilator 45 07/22/19 23:30 74 25 128/70 (89) 100 07/22/19 23:14 75 26 100 Mechanical Ventilator 45 77 26 45 07/22/19 23:00 137/70 07/22/19 23:00 26 137/70 Mechanical Ventilator 45 07/22/19 23:00 70 26 137/70 (92) 100 07/22/19 22:57 25 127/70 Mechanical Ventilator 45 07/22/19 22:30 71 26 127/70 (89) 100 07/22/19 22:00 71 13 135/69 (91) 100 07/22/19 22:00 135/69 07/22/19 22:00 13 135/69 Mechanical Ventilator 45 07/22/19 21:30 75 24 108/62 (77) 100 07/22/19 21:00 73 25 105/64 (78) 100 07/22/19 21:00 105/64 07/22/19 21:00 25 105/64 Mechanical Ventilator 45 07/22/19 20:30 74 26 108/72 (84) 100 07/22/19 20:09 84 26 100 Mechanical Ventilator 45 85 26 45 07/22/19 20:00 98.9 74 27 117/62 (80) 100 07/22/19 20:00 117/62 07/22/19 20:00 27 117/62 Mechanical Ventilator 45 07/22/19 20:00 45 07/22/19 20:00 75 07/22/19 20:00 Mechanical Ventilator 07/22/19 19:00 112/63 07/22/19 19:00 26 112/63 Mechanical Ventilator 45 07/22/19 19:00 76 26 112/63 (79) 100 07/22/19 18:30 80 26 117/69 (85) 100 07/22/19 18:00 75 25 113/58 (76) 94 07/22/19 18:00 110/69 07/22/19 18:00 18 110/69 Mechanical Ventilator 45 07/22/19 17:30 77 25 121/54 (76) 100 07/22/19 17:00 160/70 07/22/19 17:00 18 160/70 Mechanical Ventilator 45 07/22/19 17:00 77 25 109/56 (73) 100 07/22/19 16:30 78 25 112/54 (73) 100 07/22/19 16:00 Mechanical Ventilator 07/22/19 16:00 80 25 111/56 (74) 100 07/22/19 16:00 76 07/22/19 16:00 45 07/22/19 16:00 120/62 07/22/19 16:00 25 120/62 Mechanical Ventilator 45 07/22/19 15:30 77 27 120/62 (81) 100 07/22/19 15:10 88 26 100 Mechanical Ventilator 45 88 26 45 07/22/19 15:00 91/54 07/22/19 15:00 26 91/54 Mechanical Ventilator 45 07/22/19 15:00 72 26 89/54 (66) 100 07/22/19 14:30 80 21 116/58 (77) 100 07/22/19 14:00 79 22 122/59 (80) 100 07/22/19 14:00 122/59 07/22/19 14:00 22 122/59 Mechanical Ventilator 45 Intake and Output 07/22/19 07/23/19 19:00 07:00 Intake Total 937.5 ml 885.00 ml Balance 937.5 ml 885.00 ml Free Water 120 ml IV Total 397.5 ml 265.00 ml Tube Feeding 420 ml 420 ml Other 200 ml # Bowel Movements 2 2 Laboratory Tests 07/23/19 04:00: White Blood Count 17.4H, Red Blood Count 3.06L, Hemoglobin 8.8L, Hematocrit 28.9L, Mean Corpuscular Volume 95, Mean Corpuscular Hemoglobin 28.7, Mean Corpuscular Hemoglobin Concent 30.4L, Red Cell Distribution Width 16.3H, Platelet Count 244, Mean Platelet Volume 8.0, Neutrophils (%) (Auto) 80.5H, Lymphocytes (%) (Auto) 8.2L, Monocytes (%) (Auto) 6.4, Eosinophils (%) (Auto) 4.2H, Basophils (%) (Auto) 0.6, Sodium Level 136, Potassium Level 3.7, Chloride Level 93L, Carbon Dioxide Level 27, Anion Gap 16H, Blood Urea Nitrogen 86H, Creatinine 9.9H, Estimat Glomerular Filtration Rate 5.3, Glucose Level 155#H, Calcium Level 9.5, Phosphorus Level 3.7, Magnesium Level 2.8H, Total Bilirubin 0.4, Aspartate Amino Transf (AST/SGOT) 15, Alanine Aminotransferase (ALT/SGPT) 11L, Alkaline Phosphatase 148H, Total Protein 8.0, Albumin 2.8L, Globulin 5.2, Albumin/Globulin Ratio 0.5L Height (Feet): 6 Height (Inches): 1.00 Weight (Pounds): 187 General Appearance: no apparent distress EENT: other - Trached and vent Cardiovascular: normal rate Respiratory/Chest: decreased breath sounds Abdomen: distended Objective No change Mic Cole MD Jul 23, 2019 13:31
--- NOTE | 2019-07-23 15:20 | Pulmonolgy Critical Care Note ---
Critical Care - Asmt/Plan Assessment/Plan: Pulmonary CCM Progress Note HPI: Patient is a 68 year old man, [facility] resident, admitted c/o shortness of breath, cough, noted to have Covid 19 Pneumonia, Respiratory Failure Remains on Ventilator, CXR infiltrates stable Septic Shock, remains on pressors - Mitodrine , less Levophed Preserved EF FIO2 40%, P5, adequate O2 sats, remains on ACVC, s/p Tracheostomy previously, sp PEG ID following, on broad spectrum AB Past Medical History: COPD, CKD, Hypertension, Anemia Allergies: No Known Allergies Improving Pulmonary Status on HD Physical Exam Vital Signs Noted Stable on ventilator Chronically ill appearing HEENT: moist mm, trach Chest: Occasional rhonchi, BS equal bilaterally Heart: HS1, HS2, RRR Abdomen: SNTND G tube Extremities: No edema, well perfused 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, 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 Impression: COVID-19 virus infection Pneumonia Respiratory failure on ventilator, wean as tolerated once off pressors CKD - on HD Hypotension on pressors previously Cardiomegaly Lymphopenia Elevated AST COPD Chronic Kidney Disease - HD H/o Hypertension Worsening anemia Plan: SP Tracheostomy / G tube Antibiotics per ID HD Pressors PRN ACVC - wean as tolerated 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 Monitor cultures/viral studies PPX Hemodialysis per Renal Psychiatry following Laboratory Tests Noted: CXR: Hypoventilatory exam, interstitial changes, cardiomegaly, improving infiltrates Subjective ROS Limited/Unobtainable: No Constitutional: Denies: fever Respiratory: Reports: dry cough, shortness of breath Gastrointestinal/Abdominal: Reports: diarrhea, other - colace was stopped Psychiatric: Reports: other - refuses labs Allergies: Coded Allergies: No Known Allergies (Unverified , 05/28/19) All Systems: reviewed and negative except above Labs noted Critical Care - Objective Last 24 Hour Vital Signs Date Time Temp Pulse Resp B/P (MAP) Pulse Ox O2 Delivery O2 Flow Rate FiO2 07/23/19 12:00 106/61 07/23/19 11:00 105/63 07/23/19 10:52 70 26 100 Mechanical Ventilator 40 67 26 40 07/23/19 10:00 114/71 07/23/19 09:00 70 16 117/63 (81) 99 07/23/19 09:00 106/62 07/23/19 08:30 67 27 117/67 (84) 100 07/23/19 08:00 Mechanical Ventilator 07/23/19 08:00 98.2 66 26 95/57 (70) 100 07/23/19 08:00 45 07/23/19 08:00 117/67 07/23/19 07:30 71 25 128/59 (82) 100 07/23/19 07:29 100 07/23/19 07:29 73 26 100 Mechanical Ventilator 45 71 26 45 07/23/19 07:00 128/59 07/23/19 07:00 67 26 107/57 (74) 100 07/23/19 06:30 65 25 118/58 (78) 100 07/23/19 06:30 65 26 07/23/19 06:00 63 26 114/70 (85) 100 07/23/19 06:00 118/58 07/23/19 06:00 26 118/58 Mechanical Ventilator 45 07/23/19 05:30 70 25 107/60 (76) 100 07/23/19 05:00 70 26 106/62 (77) 100 07/23/19 05:00 106/62 07/23/19 05:00 26 106/62 Mechanical Ventilator 45 07/23/19 04:30 75 19 134/69 (90) 100 07/23/19 04:00 98.3 68 26 121/64 (83) 100 07/23/19 04:00 121/64 07/23/19 04:00 26 121/64 Mechanical Ventilator 45 07/23/19 04:00 Mechanical Ventilator 07/23/19 04:00 45 07/23/19 04:00 74 07/23/19 03:30 63 26 84/52 (63) 100 07/23/19 03:10 69 28 100 Mechanical Ventilator 45 68 26 45 07/23/19 03:00 67 26 92/47 (62) 100 07/23/19 03:00 92/47 07/23/19 03:00 26 92/47 Mechanical Ventilator 45 07/23/19 02:30 74 26 108/57 (74) 100 07/23/19 02:00 73 26 105/65 (78) 97 07/23/19 02:00 105/65 07/23/19 02:00 26 105/65 Mechanical Ventilator 45 07/23/19 01:30 67 26 103/57 (72) 100 07/23/19 01:00 67 26 97/57 (70) 100 07/23/19 01:00 97/57 07/23/19 01:00 26 97/50 Mechanical Ventilator 45 07/23/19 00:30 74 24 106/58 (74) 100 07/23/19 00:00 Mechanical Ventilator 07/23/19 00:00 98.5 72 25 123/58 (79) 100 07/23/19 00:00 123/58 07/23/19 00:00 25 123/58 Mechanical Ventilator 45 07/22/19 23:30 74 25 128/70 (89) 100 07/22/19 23:14 75 26 100 Mechanical Ventilator 45 77 26 45 07/22/19 23:00 137/70 07/22/19 23:00 26 137/70 Mechanical Ventilator 45 07/22/19 23:00 70 26 137/70 (92) 100 07/22/19 22:57 25 127/70 Mechanical Ventilator 45 07/22/19 22:30 71 26 127/70 (89) 100 07/22/19 22:00 71 13 135/69 (91) 100 07/22/19 22:00 135/69 07/22/19 22:00 13 135/69 Mechanical Ventilator 45 07/22/19 21:30 75 24 108/62 (77) 100 07/22/19 21:00 73 25 105/64 (78) 100 07/22/19 21:00 105/64 07/22/19 21:00 25 105/64 Mechanical Ventilator 45 07/22/19 20:30 74 26 108/72 (84) 100 07/22/19 20:09 84 26 100 Mechanical Ventilator 45 85 26 45 07/22/19 20:00 98.9 74 27 117/62 (80) 100 07/22/19 20:00 117/62 07/22/19 20:00 27 117/62 Mechanical Ventilator 45 07/22/19 20:00 45 07/22/19 20:00 75 07/22/19 20:00 Mechanical Ventilator 07/22/19 19:00 112/63 07/22/19 19:00 26 112/63 Mechanical Ventilator 45 07/22/19 19:00 76 26 112/63 (79) 100 07/22/19 18:30 80 26 117/69 (85) 100 07/22/19 18:00 75 25 113/58 (76) 94 07/22/19 18:00 110/69 07/22/19 18:00 18 110/69 Mechanical Ventilator 45 07/22/19 17:30 77 25 121/54 (76) 100 07/22/19 17:00 160/70 07/22/19 17:00 18 160/70 Mechanical Ventilator 45 07/22/19 17:00 77 25 109/56 (73) 100 07/22/19 16:30 78 25 112/54 (73) 100 07/22/19 16:00 Mechanical Ventilator 07/22/19 16:00 80 25 111/56 (74) 100 07/22/19 16:00 76 07/22/19 16:00 45 07/22/19 16:00 120/62 07/22/19 16:00 25 120/62 Mechanical Ventilator 45 07/22/19 15:30 77 27 120/62 (81) 100 Micro: Microbiology Date/Time Source Procedure Growth Status 07/21/19 04:00 Blood Blood Culture - Preliminary NO GROWTH AFTER 48 HOURS Resulted 07/21/19 04:00 Blood Blood Culture - Preliminary NO GROWTH AFTER 48 HOURS Resulted Accucheck: 149 Critical Care - Subjective ROS Limited/Unobtainable: Yes Condition: critical IV Access: central FI02: 40 Vent Support Breath Rate: 26 Vent Support Mode: AC Vent Tidal Volume: 500 Sputum Amount: Moderate PEEP: 5.0 PIP: 29 Tube Feeding Amount: 35 I&O: Intake and Output 07/22/19 07/23/19 19:00 07:00 Intake Total 937.5 ml 885.00 ml Balance 937.5 ml 885.00 ml Free Water 120 ml IV Total 397.5 ml 265.00 ml Tube Feeding 420 ml 420 ml Other 200 ml # Bowel Movements 2 2 ET-Tube: 7.5 ET Position: 24 Arturo Mckeon MD Jul 23, 2019 15:20
--- NOTE | 2019-07-23 15:55 | Surgery Progress Note ---
Surgery Progress Note Subjective Procedure Performed Right femoral temporary hemodialysis catheter removal Additional Comments Patient seen and examined bedside. Overnight somehow the central line slowly withdrew noted today that sutures were no longer present and the bolster was not present neither unsure why. Chest x-ray noted line is still within the venous system just retracted somewhat at the brachiocephalic junction midline still functional patient on minimal pressors weaning off we will not advance plan to remove soon wean pressors Objective Last 24 Hour Vital Signs Date Time Temp Pulse Resp B/P (MAP) Pulse Ox O2 Delivery O2 Flow Rate FiO2 07/23/19 15:16 71 26 100 Mechanical Ventilator 40 70 26 40 07/23/19 14:00 107/64 07/23/19 14:00 25 107/64 Mechanical Ventilator 45 07/23/19 13:00 113/65 07/23/19 13:00 26 113/65 Mechanical Ventilator 45 07/23/19 12:00 106/61 07/23/19 12:00 26 106/61 Mechanical Ventilator 45 07/23/19 11:00 105/63 07/23/19 11:00 26 105/63 Mechanical Ventilator 45 07/23/19 10:52 70 26 100 Mechanical Ventilator 40 67 26 40 07/23/19 10:00 114/71 07/23/19 10:00 26 114/71 Mechanical Ventilator 45 07/23/19 09:00 70 16 117/63 (81) 99 07/23/19 09:00 106/62 07/23/19 09:00 26 106/62 Mechanical Ventilator 45 07/23/19 08:30 67 27 117/67 (84) 100 07/23/19 08:00 Mechanical Ventilator 07/23/19 08:00 98.2 66 26 95/57 (70) 100 07/23/19 08:00 45 07/23/19 08:00 117/67 07/23/19 08:00 26 117/67 Mechanical Ventilator 45 07/23/19 07:30 71 25 128/59 (82) 100 07/23/19 07:29 100 07/23/19 07:29 73 26 100 Mechanical Ventilator 45 71 26 45 07/23/19 07:00 128/59 07/23/19 07:00 25 128/59 Mechanical Ventilator 45 07/23/19 07:00 67 26 107/57 (74) 100 07/23/19 06:30 65 25 118/58 (78) 100 07/23/19 06:30 65 26 07/23/19 06:00 63 26 114/70 (85) 100 07/23/19 06:00 118/58 07/23/19 06:00 26 118/58 Mechanical Ventilator 45 07/23/19 05:30 70 25 107/60 (76) 100 07/23/19 05:00 70 26 106/62 (77) 100 07/23/19 05:00 106/62 07/23/19 05:00 26 106/62 Mechanical Ventilator 45 07/23/19 04:30 75 19 134/69 (90) 100 07/23/19 04:00 98.3 68 26 121/64 (83) 100 07/23/19 04:00 121/64 07/23/19 04:00 26 121/64 Mechanical Ventilator 45 07/23/19 04:00 Mechanical Ventilator 07/23/19 04:00 45 07/23/19 04:00 74 07/23/19 03:30 63 26 84/52 (63) 100 07/23/19 03:10 69 28 100 Mechanical Ventilator 45 68 26 45 07/23/19 03:00 67 26 92/47 (62) 100 07/23/19 03:00 92/47 07/23/19 03:00 26 92/47 Mechanical Ventilator 45 07/23/19 02:30 74 26 108/57 (74) 100 07/23/19 02:00 73 26 105/65 (78) 97 07/23/19 02:00 105/65 07/23/19 02:00 26 105/65 Mechanical Ventilator 45 07/23/19 01:30 67 26 103/57 (72) 100 07/23/19 01:00 67 26 97/57 (70) 100 07/23/19 01:00 97/57 07/23/19 01:00 26 97/50 Mechanical Ventilator 45 07/23/19 00:30 74 24 106/58 (74) 100 07/23/19 00:00 Mechanical Ventilator 07/23/19 00:00 98.5 72 25 123/58 (79) 100 07/23/19 00:00 123/58 07/23/19 00:00 25 123/58 Mechanical Ventilator 45 07/22/19 23:30 74 25 128/70 (89) 100 07/22/19 23:14 75 26 100 Mechanical Ventilator 45 77 26 45 07/22/19 23:00 137/70 07/22/19 23:00 26 137/70 Mechanical Ventilator 45 07/22/19 23:00 70 26 137/70 (92) 100 07/22/19 22:57 25 127/70 Mechanical Ventilator 45 07/22/19 22:30 71 26 127/70 (89) 100 07/22/19 22:00 71 13 135/69 (91) 100 07/22/19 22:00 135/69 07/22/19 22:00 13 135/69 Mechanical Ventilator 45 07/22/19 21:30 75 24 108/62 (77) 100 07/22/19 21:00 73 25 105/64 (78) 100 07/22/19 21:00 105/64 07/22/19 21:00 25 105/64 Mechanical Ventilator 45 07/22/19 20:30 74 26 108/72 (84) 100 07/22/19 20:09 84 26 100 Mechanical Ventilator 45 85 26 45 07/22/19 20:00 98.9 74 27 117/62 (80) 100 07/22/19 20:00 117/62 07/22/19 20:00 27 117/62 Mechanical Ventilator 45 07/22/19 20:00 45 07/22/19 20:00 75 07/22/19 20:00 Mechanical Ventilator 07/22/19 19:00 112/63 07/22/19 19:00 26 112/63 Mechanical Ventilator 45 07/22/19 19:00 76 26 112/63 (79) 100 07/22/19 18:30 80 26 117/69 (85) 100 07/22/19 18:00 75 25 113/58 (76) 94 07/22/19 18:00 110/69 07/22/19 18:00 18 110/69 Mechanical Ventilator 45 07/22/19 17:30 77 25 121/54 (76) 100 07/22/19 17:00 160/70 07/22/19 17:00 18 160/70 Mechanical Ventilator 45 07/22/19 17:00 77 25 109/56 (73) 100 07/22/19 16:30 78 25 112/54 (73) 100 07/22/19 16:00 Mechanical Ventilator 6/11/20 16:00 80 25 111/56 (74) 100 07/22/19 16:00 76 07/22/19 16:00 45 07/22/19 16:00 120/62 07/22/19 16:00 25 120/62 Mechanical Ventilator 45 I&O Intake and Output 07/22/19 07/23/19 19:00 07:00 Intake Total 937.5 ml 890.00 ml Balance 937.5 ml 890.00 ml Free Water 120 ml IV Total 397.5 ml 270.00 ml Tube Feeding 420 ml 420 ml Other 200 ml # Bowel Movements 2 2 Dressing: other Wound: other Drains: other Cardiovascular: RSR Respiratory: decreased breath sounds Abdomen: soft, present bowel sounds Extremities: no cyanosis Laboratory Tests Test 07/23/19 04:00 White Blood Count 17.4 K/UL (4.8-10.8) H Red Blood Count 3.06 M/UL (4.70-6.10) L Hemoglobin 8.8 G/DL (14.2-18.0) L Hematocrit 28.9 % (42.0-52.0) L Mean Corpuscular Volume 95 FL (80-99) Mean Corpuscular Hemoglobin 28.7 PG (27.0-31.0) Mean Corpuscular Hemoglobin Concent 30.4 G/DL (32.0-36.0) L Red Cell Distribution Width 16.3 % (11.6-14.8) H Platelet Count 244 K/UL (150-450) Mean Platelet Volume 8.0 FL (6.5-10.1) Neutrophils (%) (Auto) 80.5 % (45.0-75.0) H Lymphocytes (%) (Auto) 8.2 % (20.0-45.0) L Monocytes (%) (Auto) 6.4 % (1.0-10.0) Eosinophils (%) (Auto) 4.2 % (0.0-3.0) H Basophils (%) (Auto) 0.6 % (0.0-2.0) Sodium Level 136 MMOL/L (136-145) Potassium Level 3.7 MMOL/L (3.5-5.1) Chloride Level 93 MMOL/L (98-107) L Carbon Dioxide Level 27 MMOL/L (21-32) Anion Gap 16 mmol/L (5-15) H Blood Urea Nitrogen 86 mg/dL (7-18) H Creatinine 9.9 MG/DL (0.55-1.30) H Estimat Glomerular Filtration Rate 5.3 mL/min (>60) Glucose Level 155 MG/DL (74-106) #H Calcium Level 9.5 MG/DL (8.5-10.1) Phosphorus Level 3.7 MG/DL (2.5-4.9) Magnesium Level 2.8 MG/DL (1.8-2.4) H Total Bilirubin 0.4 MG/DL (0.2-1.0) Aspartate Amino Transf (AST/SGOT) 15 U/L (15-37) Alanine Aminotransferase (ALT/SGPT) 11 U/L (12-78) L Alkaline Phosphatase 148 U/L (46-116) H Total Protein 8.0 G/DL (6.4-8.2) Albumin 2.8 G/DL (3.4-5.0) L Globulin 5.2 g/dL Albumin/Globulin Ratio 0.5 (1.0-2.7) L Plan Problems: (1) Suspected COVID-19 virus infection (2) HTN (hypertension) (3) CASSANDRA (acute kidney injury) Assessment & Plan: Needs urgent HD needs access patient okay and consented see note will follow with recs new line placed discussed with team and nephrology HD line functional when checked has TPA now please use appropriately Cathflo used again this flow during dialysis on 430 was low. Will monitor may need line change 5/4 plan for HD as per renal may need to take fluid off with HD edema anasarca dressings saturated and changed will monitor cont with HD IJ left line placed for HD given extent of prior line in place. leukocytosis blood cx negative may need to change out line new line okay HD going well (4) Anemia in chronic kidney disease (CKD) (5) Anemia (6) Renal failure (7) Suspected COVID-19 virus infection Assessment & Plan: Pt deconditioned and despite all skin preventions Pt noted to have developed several pressure injuries. . Stable dry eschar noted to clefts of R and L ears. No erythema noted . DTPI noted to L trochanter. Base of injury is maroon in colour with marginal erythema along borders. Partially opened DTPI Sacrum, R and L Buttocks. Base of wound is maroon with two small open wounds L sacrum and L buttocks. Pt has an APM/MOMO Mattress overlay and is being positioned with pillows as per tolerance and within protocols. worsening despite medical efforts will cont to provide therapy Tx.Plan: Apply Cavilon Skin Barrier to both ears Daily and prn. Apply Moisture Barrier Paste to Sacrum,R and L Buttocks. Cover with Optifoam drsgs. Change every 3 days and PRN. Apply Cavilon Skin Barrier to R and L trochanter. Cover each site with Optifoam drsgs.Change every 7 days and PRN. Apply Cavilon Skin Barrier to both heels. Cover each heel with Optifoam drsg. Change every 7 days and prn. Off-load heels with pillow. Reposition at least every 2hours or as tolerated. APM/MOMO Mattress overlay. (8) COVID-19 Assessment & Plan: COVID + c diff negative febrile leukocytosis renal insufficiency see above cont resp care Rx as per ID worsening on vent support now cxr noted on pressors prognosis guarded repeat covid ++ weaning vent and pressors off slowly showing improvement slowly recovering will need trach as unable to wean vent safely [facility] obtained s/p trach pending peg worsening on levo max (9) Sepsis Assessment & Plan: worsening leukocytosis febrile on pressors discussed with ID. lines evaluated and clean. he is septic on pressors and needs central access in difficult venous access patient blood cultures negative will monitor Yaniv Mast Jul 23, 2019 15:55
--- NOTE | 2019-07-23 16:48 | General Progress Note ---
Assessment/Plan Problem List: (1) HTN (hypertension) ICD Codes: I10 - Essential (primary) hypertension SNOMED: 04310653 (2) CASSANDRA (acute kidney injury) ICD Codes: N17.9 - Acute kidney failure, unspecified SNOMED: 0216014, 60397319 (3) Anemia in chronic kidney disease (CKD) ICD Codes: N18.9 - Chronic kidney disease, unspecified; D63.1 - Anemia in chronic kidney disease SNOMED: 995037935 (4) Renal failure ICD Codes: N19 - Unspecified kidney failure SNOMED: 44742592 (5) Respiratory failure requiring intubation ICD Codes: J96.90 - Respiratory failure, unspecified, unspecified whether with hypoxia or hypercapnia; A41.89 - Other specified sepsis SNOMED: 761709243, 872258916 (6) Pneumonia due to COVID-19 virus ICD Codes: U07.1 - COVID-19; J12.89 - Other viral pneumonia SNOMED: 754402015, 282924670 (7) Sepsis due to severe acute respiratory syndrome coronavirus 2 (SARS-CoV-2) ICD Codes: U07.1 - COVID-19; A41.89 - Other specified sepsis SNOMED: 334849382, 730971621 Status: unchanged, deteriorating Assessment/Plan: on pressor on diaylsis pt will benefit from comfort care and dnr worsening renal failure worsening leukocytosis very poor prognosis diaylsis per renal s/p covid pna Subjective Allergies: Coded Allergies: No Known Allergies (Unverified , 05/28/19) Objective Last 24 Hour Vital Signs Date Time Temp Pulse Resp B/P (MAP) Pulse Ox O2 Delivery O2 Flow Rate FiO2 07/23/19 16:00 Mechanical Ventilator 07/23/19 16:00 45 07/23/19 15:30 69 26 110/71 (84) 100 07/23/19 15:16 71 26 100 Mechanical Ventilator 40 70 26 40 07/23/19 15:00 71 23 113/64 (80) 100 07/23/19 14:30 70 23 115/63 (80) 100 07/23/19 14:00 67 26 107/64 (78) 100 07/23/19 14:00 107/64 07/23/19 14:00 25 107/64 Mechanical Ventilator 45 07/23/19 13:30 67 26 100/56 (71) 100 07/23/19 13:00 113/65 07/23/19 13:00 26 113/65 Mechanical Ventilator 45 07/23/19 13:00 71 25 113/65 (81) 100 07/23/19 12:30 67 26 106/61 (76) 100 07/23/19 12:00 98.4 70 26 98/65 (76) 99 07/23/19 12:00 106/61 07/23/19 12:00 26 106/61 Mechanical Ventilator 45 07/23/19 12:00 Mechanical Ventilator 07/23/19 12:00 45 07/23/19 11:30 70 26 105/63 (77) 100 07/23/19 11:00 105/63 07/23/19 11:00 26 105/63 Mechanical Ventilator 45 07/23/19 11:00 71 24 93/56 (68) 99 07/23/19 10:52 70 26 100 Mechanical Ventilator 40 67 26 40 07/23/19 10:30 66 26 114/71 (85) 100 07/23/19 10:00 114/71 07/23/19 10:00 26 114/71 Mechanical Ventilator 45 07/23/19 10:00 68 25 108/63 (78) 100 07/23/19 09:30 70 26 106/62 (77) 100 07/23/19 09:00 70 16 117/63 (81) 99 07/23/19 09:00 106/62 07/23/19 09:00 26 106/62 Mechanical Ventilator 45 07/23/19 08:30 67 27 117/67 (84) 100 07/23/19 08:00 Mechanical Ventilator 07/23/19 08:00 98.2 66 26 95/57 (70) 100 07/23/19 08:00 45 07/23/19 08:00 117/67 07/23/19 08:00 26 117/67 Mechanical Ventilator 45 07/23/19 07:30 71 25 128/59 (82) 100 07/23/19 07:29 100 07/23/19 07:29 73 26 100 Mechanical Ventilator 45 71 26 45 07/23/19 07:00 128/59 07/23/19 07:00 25 128/59 Mechanical Ventilator 45 07/23/19 07:00 67 26 107/57 (74) 100 07/23/19 06:30 65 25 118/58 (78) 100 07/23/19 06:30 65 26 07/23/19 06:00 63 26 114/70 (85) 100 07/23/19 06:00 118/58 07/23/19 06:00 26 118/58 Mechanical Ventilator 45 07/23/19 05:30 70 25 107/60 (76) 100 07/23/19 05:00 70 26 106/62 (77) 100 07/23/19 05:00 106/62 07/23/19 05:00 26 106/62 Mechanical Ventilator 45 07/23/19 04:30 75 19 134/69 (90) 100 07/23/19 04:00 98.3 68 26 121/64 (83) 100 07/23/19 04:00 121/64 07/23/19 04:00 26 121/64 Mechanical Ventilator 45 07/23/19 04:00 Mechanical Ventilator 07/23/19 04:00 45 07/23/19 04:00 74 07/23/19 03:30 63 26 84/52 (63) 100 07/23/19 03:10 69 28 100 Mechanical Ventilator 45 68 26 45 07/23/19 03:00 67 26 92/47 (62) 100 07/23/19 03:00 92/47 07/23/19 03:00 26 92/47 Mechanical Ventilator 45 07/23/19 02:30 74 26 108/57 (74) 100 07/23/19 02:00 73 26 105/65 (78) 97 07/23/19 02:00 105/65 07/23/19 02:00 26 105/65 Mechanical Ventilator 45 07/23/19 01:30 67 26 103/57 (72) 100 07/23/19 01:00 67 26 97/57 (70) 100 07/23/19 01:00 97/57 07/23/19 01:00 26 97/50 Mechanical Ventilator 45 07/23/19 00:30 74 24 106/58 (74) 100 07/23/19 00:00 Mechanical Ventilator 07/23/19 00:00 98.5 72 25 123/58 (79) 100 07/23/19 00:00 123/58 07/23/19 00:00 25 123/58 Mechanical Ventilator 45 07/22/19 23:30 74 25 128/70 (89) 100 07/22/19 23:14 75 26 100 Mechanical Ventilator 45 77 26 45 07/22/19 23:00 137/70 07/22/19 23:00 26 137/70 Mechanical Ventilator 45 07/22/19 23:00 70 26 137/70 (92) 100 07/22/19 22:57 25 127/70 Mechanical Ventilator 45 07/22/19 22:30 71 26 127/70 (89) 100 07/22/19 22:00 71 13 135/69 (91) 100 07/22/19 22:00 135/69 07/22/19 22:00 13 135/69 Mechanical Ventilator 45 07/22/19 21:30 75 24 108/62 (77) 100 07/22/19 21:00 73 25 105/64 (78) 100 07/22/19 21:00 105/64 07/22/19 21:00 25 105/64 Mechanical Ventilator 45 07/22/19 20:30 74 26 108/72 (84) 100 07/22/19 20:09 84 26 100 Mechanical Ventilator 45 85 26 45 07/22/19 20:00 98.9 74 27 117/62 (80) 100 07/22/19 20:00 117/62 07/22/19 20:00 27 117/62 Mechanical Ventilator 45 07/22/19 20:00 45 07/22/19 20:00 75 07/22/19 20:00 Mechanical Ventilator 07/22/19 19:00 112/63 07/22/19 19:00 26 112/63 Mechanical Ventilator 45 07/22/19 19:00 76 26 112/63 (79) 100 07/22/19 18:30 80 26 117/69 (85) 100 07/22/19 18:00 75 25 113/58 (76) 94 07/22/19 18:00 110/69 07/22/19 18:00 18 110/69 Mechanical Ventilator 45 07/22/19 17:30 77 25 121/54 (76) 100 07/22/19 17:00 160/70 07/22/19 17:00 18 160/70 Mechanical Ventilator 45 07/22/19 17:00 77 25 109/56 (73) 100 Intake and Output 07/22/19 07/23/19 19:00 07:00 Intake Total 937.5 ml 890.00 ml Balance 937.5 ml 890.00 ml Free Water 120 ml IV Total 397.5 ml 270.00 ml Tube Feeding 420 ml 420 ml Other 200 ml # Bowel Movements 2 2 Laboratory Tests 07/23/19 04:00: White Blood Count 17.4H, Red Blood Count 3.06L, Hemoglobin 8.8L, Hematocrit 28.9L, Mean Corpuscular Volume 95, Mean Corpuscular Hemoglobin 28.7, Mean Corpuscular Hemoglobin Concent 30.4L, Red Cell Distribution Width 16.3H, Platelet Count 244, Mean Platelet Volume 8.0, Neutrophils (%) (Auto) 80.5H, Lymphocytes (%) (Auto) 8.2L, Monocytes (%) (Auto) 6.4, Eosinophils (%) (Auto) 4.2H, Basophils (%) (Auto) 0.6, Sodium Level 136, Potassium Level 3.7, Chloride Level 93L, Carbon Dioxide Level 27, Anion Gap 16H, Blood Urea Nitrogen 86H, Creatinine 9.9H, Estimat Glomerular Filtration Rate 5.3, Glucose Level 155#H, Calcium Level 9.5, Phosphorus Level 3.7, Magnesium Level 2.8H, Total Bilirubin 0.4, Aspartate Amino Transf (AST/SGOT) 15, Alanine Aminotransferase (ALT/SGPT) 11L, Alkaline Phosphatase 148H, Total Protein 8.0, Albumin 2.8L, Globulin 5.2, Albumin/Globulin Ratio 0.5L Height (Feet): 6 Height (Inches): 1.00 Weight (Pounds): 187 General Appearance: lethargic, confused Karishma Mulligan MD Jul 23, 2019 16:48
[2019-07-23] MEDS: Dyna-Hex 2% Top Sol 2oz TOPIC SCH (19:55)
[2019-07-23] MEDS: Epoetin Alfa-EPBX(ESRD on dialysis)10,000 unit/ml vial SUBQ SCH (21:02)
[2019-07-24] VITALS (52 sets, daily range): BP systolic 92–143; BP diastolic 52–84
[2019-07-24] MEDS: NovoLOG Insulin Flexpen SUBQ SCH ×5 (00:11→23:44)
[2019-07-24] MEDS: Renvela 2400 mg pkt NG SCH ×5 (00:18→23:09)
[2019-07-24] MEDS: fentaNYL 2500mcg/NS 250ml 250 ML IV SCH (00:53)
[2019-07-24] MEDS: Albuterol 90mcg Inhaler 8gm INH SCH ×6 (03:08→23:49)
[2019-07-24 05:22] LABS: BASOPHILS % (AUTO) 0.5 % (0.0-2.0); EOSINOPHILS % (AUTO) 3.3 % (0.0-3.0); HEMOGLOBIN 9.6 G/DL (14.2-18.0); LYMPHOCYTES % (AUTO) 6.8 % (20.0-45.0); MEAN CORPUSCULAR VOLUME 95 FL (80-99); MONOCYTES % (AUTO) 5.6 % (1.0-10.0); NEUTROPHILS % (AUTO) 83.7 % (45.0-75.0); PLATELET COUNT 229 K/UL (150-450); RED BLOOD COUNT 3.26 M/UL (4.70-6.10); RED CELL DISTRIBUTION WIDTH 16.5 % (11.6-14.8); WHITE BLOOD COUNT 17.9 K/UL (4.8-10.8)
[2019-07-24 05:32] LABS: ALANINE AMINOTRANSFERASE 11 U/L (12-78); ALBUMIN 3.1 G/DL (3.4-5.0); ALBUMIN/GLOBULIN RATIO 0.6 (1.0-2.7); ALKALINE PHOSPHATASE 115 U/L (46-116); ANION GAP 12 mmol/L (5-15); ASPARTATE AMINO TRANSFERASE 18 U/L (15-37); BILIRUBIN,TOTAL 0.4 MG/DL (0.2-1.0); BLOOD UREA NITROGEN 55 mg/dL (7-18); CARBON DIOXIDE 28 MMOL/L (21-32); CHLORIDE 98 MMOL/L (98-107); CREATININE 7.3 MG/DL (0.55-1.30); POTASSIUM 3.6 MMOL/L (3.5-5.1); SODIUM 138 MMOL/L (136-145)
[2019-07-24] MEDS: Midodrine 10mg tab ORAL SCH ×3 (05:32→21:34)
[2019-07-24] MEDS: Enoxaparin 30mg Inj SUBQ SCH (08:08)
--- NOTE | 2019-07-24 09:31 | General Progress Note ---
Assessment/Plan Problem List: (1) HTN (hypertension) ICD Codes: I10 - Essential (primary) hypertension SNOMED: 90422437 (2) CASSANDRA (acute kidney injury) ICD Codes: N17.9 - Acute kidney failure, unspecified SNOMED: 3303487, 36674814 (3) Anemia in chronic kidney disease (CKD) ICD Codes: N18.9 - Chronic kidney disease, unspecified; D63.1 - Anemia in chronic kidney disease SNOMED: 550135187 (4) Renal failure ICD Codes: N19 - Unspecified kidney failure SNOMED: 96865727 (5) Respiratory failure requiring intubation ICD Codes: J96.90 - Respiratory failure, unspecified, unspecified whether with hypoxia or hypercapnia; A41.89 - Other specified sepsis SNOMED: 193590946, 528507593 (6) Pneumonia due to COVID-19 virus ICD Codes: U07.1 - COVID-19; J12.89 - Other viral pneumonia SNOMED: 170150998, 021010058 (7) Sepsis due to severe acute respiratory syndrome coronavirus 2 (SARS-CoV-2) ICD Codes: U07.1 - COVID-19; A41.89 - Other specified sepsis SNOMED: 240446601, 625986250 Status: unchanged, deteriorating Assessment/Plan: on pressor on diaylsis s/p trach malnutrtion leukocytosis is improving azotemia/renal failure is improving diaylsis per renal s/p covid pna Subjective ROS Limited/Unobtainable: Yes Allergies: Coded Allergies: No Known Allergies (Unverified , 05/28/19) Objective Last 24 Hour Vital Signs Date Time Temp Pulse Resp B/P (MAP) Pulse Ox O2 Delivery O2 Flow Rate FiO2 07/24/19 09:00 70 28 125/64 (84) 100 07/24/19 08:30 75 23 134/64 (87) 100 07/24/19 08:00 99.2 64 26 133/68 (89) 100 07/24/19 08:00 Mechanical Ventilator 07/24/19 08:00 35 07/24/19 07:30 68 26 111/60 (77) 100 07/24/19 07:14 100 07/24/19 07:14 75 26 100 Mechanical Ventilator 35 73 26 35 07/24/19 07:00 69 27 108/57 (74) 100 07/24/19 07:00 108/57 07/24/19 07:00 27 108/57 Mechanical Ventilator 40 07/24/19 06:30 75 26 07/24/19 06:00 75 27 112/73 (86) 100 07/24/19 06:00 112/73 07/24/19 06:00 27 112/73 Mechanical Ventilator 40 07/24/19 05:30 73 27 119/70 (86) 100 07/24/19 05:00 73 27 128/60 (82) 100 07/24/19 05:00 128/60 07/24/19 05:00 27 128/60 Mechanical Ventilator 40 07/24/19 04:00 99.0 73 27 119/62 (81) 100 07/24/19 04:00 119/67 07/24/19 04:00 27 119/67 Mechanical Ventilator 40 07/24/19 04:00 71 07/24/19 04:00 Mechanical Ventilator 07/24/19 04:00 40 07/24/19 03:08 76 31 100 Mechanical Ventilator 40 76 31 40 07/24/19 03:00 100/54 07/24/19 03:00 26 100/54 Mechanical Ventilator 40 07/24/19 03:00 76 26 100/54 (69) 100 07/24/19 02:00 112/63 07/24/19 02:00 27 112/63 Mechanical Ventilator 40 07/24/19 02:00 68 27 112/63 (79) 100 07/24/19 01:00 106/59 07/24/19 01:00 26 106/59 Mechanical Ventilator 40 07/24/19 01:00 71 28 106/59 (75) 100 07/24/19 00:53 27 97/58 Mechanical Ventilator 40 07/24/19 00:00 40 07/24/19 00:00 75 07/24/19 00:00 116/59 07/24/19 00:00 26 116/59 Mechanical Ventilator 45 07/24/19 00:00 Mechanical Ventilator 07/24/19 00:00 99.0 72 27 116/59 (78) 100 07/23/19 23:06 73 27 100 Mechanical Ventilator 40 73 27 40 07/23/19 23:00 108/59 07/23/19 23:00 27 108/59 Mechanical Ventilator 45 07/23/19 23:00 74 27 108/59 (75) 100 07/23/19 22:00 73 25 113/64 (80) 100 07/23/19 22:00 113/64 07/23/19 22:00 25 113/64 Mechanical Ventilator 45 07/23/19 21:45 73 27 115/61 (79) 100 07/23/19 21:30 73 27 107/58 (74) 100 07/23/19 21:15 72 29 113/64 (80) 100 07/23/19 21:00 70 26 137/62 (87) 100 07/23/19 21:00 137/62 07/23/19 21:00 26 137/62 Mechanical Ventilator 45 07/23/19 20:30 68 26 122/61 (81) 100 07/23/19 20:00 Mechanical Ventilator 07/23/19 20:00 45 07/23/19 20:00 70 07/23/19 20:00 99.0 68 26 112/65 (81) 100 07/23/19 20:00 112/65 07/23/19 20:00 26 112/65 Mechanical Ventilator 45 07/23/19 19:30 68 26 98/58 (71) 100 07/23/19 19:12 82/57 07/23/19 19:09 83 26 100 Mechanical Ventilator 40 83 26 40 07/23/19 19:00 73 26 82/57 (65) 100 07/23/19 18:30 74 25 113/59 (77) 100 07/23/19 18:00 103/57 07/23/19 18:00 25 103/57 Mechanical Ventilator 45 07/23/19 18:00 73 26 103/57 (72) 100 07/23/19 17:30 77 26 118/61 (80) 100 07/23/19 17:00 78 26 122/69 (86) 100 07/23/19 17:00 122/69 07/23/19 17:00 26 122/69 Mechanical Ventilator 45 07/23/19 16:45 126/71 07/23/19 16:30 130/69 07/23/19 16:30 77 23 130/69 (89) 100 07/23/19 16:15 145/71 07/23/19 16:00 74 07/23/19 16:00 120/64 6/12/20 16:00 26 120/64 Mechanical Ventilator 45 07/23/19 16:00 Mechanical Ventilator 07/23/19 16:00 45 07/23/19 16:00 99.5 72 26 120/64 (82) 100 07/23/19 15:45 79/45 07/23/19 15:30 69 26 110/71 (84) 100 07/23/19 15:16 71 26 100 Mechanical Ventilator 40 70 26 40 07/23/19 15:00 71 23 113/64 (80) 100 07/23/19 15:00 113/64 07/23/19 15:00 26 113/64 Mechanical Ventilator 45 07/23/19 14:30 70 23 115/63 (80) 100 07/23/19 14:00 67 26 107/64 (78) 100 07/23/19 14:00 107/64 07/23/19 14:00 25 107/64 Mechanical Ventilator 45 07/23/19 13:30 67 26 100/56 (71) 100 07/23/19 13:00 113/65 07/23/19 13:00 26 113/65 Mechanical Ventilator 45 07/23/19 13:00 71 25 113/65 (81) 100 07/23/19 12:30 67 26 106/61 (76) 100 07/23/19 12:00 69 07/23/19 12:00 98.4 70 26 98/65 (76) 99 07/23/19 12:00 106/61 07/23/19 12:00 26 106/61 Mechanical Ventilator 45 07/23/19 12:00 Mechanical Ventilator 07/23/19 12:00 45 07/23/19 11:30 70 26 105/63 (77) 100 07/23/19 11:00 105/63 07/23/19 11:00 26 105/63 Mechanical Ventilator 45 07/23/19 11:00 71 24 93/56 (68) 99 07/23/19 10:52 70 26 100 Mechanical Ventilator 40 67 26 40 07/23/19 10:30 66 26 114/71 (85) 100 07/23/19 10:00 114/71 07/23/19 10:00 26 114/71 Mechanical Ventilator 45 07/23/19 10:00 68 25 108/63 (78) 100 07/23/19 09:30 70 26 106/62 (77) 100 Intake and Output 07/23/19 07/24/19 19:00 07:00 Intake Total 751.875 ml 727.94 ml Output Total 2000 ml Balance -1248.125 ml 727.94 ml Free Water 150 ml 50 ml IV Total 181.875 ml 257.94 ml Tube Feeding 420 ml 420 ml Hemodialysis UF 2000 ml # Bowel Movements 2 Laboratory Tests 07/24/19 03:30: White Blood Count 17.9H, Red Blood Count 3.26L, Hemoglobin 9.6L, Hematocrit 31.0L, Mean Corpuscular Volume 95, Mean Corpuscular Hemoglobin 29.6, Mean Corpuscular Hemoglobin Concent 31.1L, Red Cell Distribution Width 16.5H, Platelet Count 229, Mean Platelet Volume 7.7, Neutrophils (%) (Auto) 83.7H, Lymphocytes (%) (Auto) 6.8L, Monocytes (%) (Auto) 5.6, Eosinophils (%) (Auto) 3.3H, Basophils (%) (Auto) 0.5, Sodium Level 138, Potassium Level 3.6, Chloride Level 98, Carbon Dioxide Level 28, Anion Gap 12, Blood Urea Nitrogen 55H, Creatinine 7.3H, Estimat Glomerular Filtration Rate 7.5, Glucose Level 160H, Calcium Level 9.0, Total Bilirubin 0.4, Aspartate Amino Transf (AST/SGOT) 18, Alanine Aminotransferase (ALT/SGPT) 11L, Alkaline Phosphatase 115, Total Protein 8.5H, Albumin 3.1L, Globulin 5.4, Albumin/Globulin Ratio 0.6L, Random Vancomycin Level 19.9 Height (Feet): 6 Height (Inches): 1.00 Weight (Pounds): 187 General Appearance: lethargic Karishma Mulligan MD Jul 24, 2019 09:31
[2019-07-24] MEDS ORDERED: Sterile Water Irrig 1000ml IRRIG ONE ×2 (09:32→10:21)
--- NOTE | 2019-07-24 09:53 | Diagnostic Imaging Report ---
EXAM: XR Chest, 1 View CLINICAL HISTORY: F/U TECHNIQUE: Frontal view of the chest. COMPARISON: Chest x-ray 07/22/19 FINDINGS: Lungs: Interval development of streaky opacity left retrocardiac region. Remainder of the mild patchy opacities are stable. Pleural space: Unremarkable. No pneumothorax. Heart: Cardiomegaly. Mediastinum: Unremarkable. Bones/joints: Unremarkable. Tubes, lines and devices: Stable tracheostomy tube and left IJ catheter. Stable left subclavian catheter. IMPRESSION: Interval development of streaky opacity left retrocardiac region. Remainder of the mild patchy opacities are stable.
--- NOTE | 2019-07-24 10:25 | Nephrology Progress Note ---
Assessment/Plan Problem List: (1) CASSANDRA (acute kidney injury) (2) Anemia in chronic kidney disease (CKD) (3) HTN (hypertension) (4) COVID-19 Assessment Acute renal failure most likely superimposed on chronic kidney disease Suspected COVID-19 virus infection Possible Pneumonia, lymphopenia, elevated AST Cardiomegaly, possible CHF COPD Hypertension Anemia, most likely related to chronic kidney disease Plan July 23: Lab reviewed. Dialyzed yesterday. Discussed with RN. Remains full code. Next dialysis July 25. Will check labs tomorrow. July 22: Labs reviewed. Due for dialysis today. Discussed with RN. Watch borderline low blood pressure. Discussed with dialysis nurse. July 21: Today's lab reviewed. Will arrange for dialysis tomorrow. Discussed with RN. Aim to keep the blood pressure above 100 systolic. Continue per consultants. July 20: Patient was dialyzed yesterday. Could not ultrafiltrate much due to low blood pressure. Discussed with SHANIQUE Dick today. No labs drawn today. Continue per consultants. July 19: Due for dialysis today. Discussed with SHANIQUE Dick. Continue per consultants. July 18: Dialyzed July 16. Will order dialysis tomorrow July 19. Continues to be on ventilator through trach. No labs done today. Continue per consultants. July 17: Dialyzed yesterday. Stable from renal standpoint of view. Remains full code. Status post trach on vent. Status post PEG. Continue per consultants. July 16: Dialysis today. Will resume Midodrin to prevent hypotension. Patient remains full code. July 15: Dialyzed yesterday, due for dialysis tomorrow. Labs and medication list reviewed. Continue per consultants. Patient remains full code. COVID-19 detected again. July 14: Patient currently on dialysis. This is continuation of dialysis from yesterday as yesterday's dialysis was cut short due to catheter malfunction. Labs and medication reviewed. Continue per consultants. July 13: Patient currently on hemodialysis. The dialysis catheter which is a intrajugular Kamlesh has poor flow. Will try TPA. Continue per consultants. July 12: Due for PEG today. Due for dialysis tomorrow. Continue per consultants. Discussed with RN. July 11: Plan for dialysis today. Discussed with RN. Data reviewed. July 10: Plan for dialysis tomorrow July 11. Waiting for consent to proceed with PEG. Continue per consultants. Medication reviewed. Labs reviewed. Discussed with RN. July 09: Dialyzed yesterday. Labs reviewed. Medication reviewed. Next hemodialysis July 11. July 08: Patient has tracheostomy now. Connected to ventilator. Due for dialysis today. Continue per consultants. Discussed with SHANIQUE Romero. July 07: Patient is due for tracheostomy today. Patient was last dialyzed July 05. Will order dialysis for tomorrow. July 06: Patient is intubated on ventilator however the plan is to extubate today. Patient was dialysis yesterday July 05. The dialysis time was cut short due to patient's respiratory distress. Only 1 L was removed during dialysis yesterday. Today's lab reviewed. Continue per consultants. Will arrange for dialysis as needed. July 05: Patient due for dialysis today. Remains intubated. Will schedule permacath placement in a.m. blood cultures on July 04 are negative. July 04: Patient was dialyzed yesterday. Due for dialysis tomorrow. Continues to be intubated. After tomorrow's dialysis will order a permacath. July 03: Dialysis is about to be started now Continues to be intubated Will plan to remove the femoral dialysis catheter and exchanged for a new temporary catheter per ID recommendation We will check surveillance blood culture tomorrow July 02: Patient was dialyzed yesterday and due for dialysis tomorrow Stable from renal standpoint W on dialysis Continue per consultants, weaning....... etc. July 01: Dialysis today Other status unchanged June 30: Due for dialysis tomorrow Remains intubated on ventilator Labs and medication reviewed Discussed with RN Stable from renal standpoint of view June 29: Dialyzed yesterday Due for dialysis tomorrow Stable from renal standpoint to view Keeps failing weaning process June 28: Patient due for dialysis today Stable from renal standpoint to view Continue per consultants June 27: Labs reviewed Due due for dialysis June 28 Discussed with SHANIQUE Dick Continue per consultants Remains intubated on ventilator June 26 Labs reviewed Dialyzed yesterday Started on weaning today Continue to monitor renal parameters June 25: On dialysis now Potassium supplement implemented Continue per consultants Next dialysis June 27June 15: Status unchanged Dialyzed yesterday will dialyze again tomorrow Potassium supplements given Discussed with RN June 14: Due dialysis today Status: Remains intubated on ventilator June 22: Status unchanged Dialyzed yesterday and duefordialysistomorrow Serum sodium stable today June 21 Remains intubated on ventilator Due dialysis today Emphasized high sodium bath for dialysis June 20: Remains intubated on ventilator Dialyzed June 19 next dialysis June 21 Serum sodium 128, will give 250 cc 3% saline Remains full code Discussed with RN Iron panel ordered June 19: Discussed with RN. Patient due for dialysis today. Continue pulmonary support. Remains full code. June 18: Patient dialyzed yesterday June 17 Serum sodium improved but still low Arrange for dialysis tomorrow June 19 Continue per consultants June 17: Due for dialysis today Today's lab reviewed, low serum sodium noted, Emphasized on high sodium bath to dialysis nurse Discussed with SHANIQUE Yuen June 16: Dialyzed yesterday Remains intubated Labs reviewed, serum sodium 131 Plan to dialyze tomorrow June 17 with high sodium bath Discussed with SHANIQUE Yuen June 15: Due for dialysis today Labs reviewed Discussed with RN Transfuse 1 unit of packed RBCs today for low hemoglobin of 7.1 June 5: Blood pressure well maintained Receive dialysis June 13 next hemodialysis June 15June 4: Discussed with RN in ICU Patient did not receive proper dialysis yesterday due to dialysis catheter malfunction Catheter to be adjusted today and dialyzed to be resumed today Continue per consultants Positive for COVID 28 June 2: Patient now intubated on mechanical ventilation Discussed with SHANIQUE Yuen, today June 12 Patient received dialysis yesterday June 10 next hemodialysis June 12 Blood pressure better maintained Today's labs reviewed Continue per consultants Previously patient received dialysis last evening June 05, next dialysis June 07 which was incomplete due to patient's hypotension Will start on midodrine for blood pressure support. Meanwhile continue other pressors as needed Previously Patient is doing poorly, septic, white blood cells are rising, Hypotension somewhat improved We will keep n.p.o. , NG tube for medications, and change medication to IV as needed Patient remains full code Monitor vancomycin level Previously: Patient pulled out his femoral catheter yesterday June 03 which was reinserted by Dr. Mast Patient scheduled for dialysis again June 04, which again was not done due to dialysis nurse citing catheter malfunction Meanwhile continue management per ID, pulmonary , and psych. Meanwhile white blood cell count is rising. Patient blood pressure borderline low. Will check ABG Previously May 31 : I believe patient need dialysis treatment He however needs to competency assessment if can make decisions or not I will communicate with Dr. Mulligan Previously: Per pulmonary and ID advice Adjust blood pressure medication Renal diet Anemia work-up 2D echocardiogram refused Kidney ultrasound refused Jules catheter Urine studies Per orders Subjective ROS Limited/Unobtainable: Yes Objective Objective Last 24 Hour Vital Signs Date Time Temp Pulse Resp B/P (MAP) Pulse Ox O2 Delivery O2 Flow Rate FiO2 07/24/19 09:00 70 28 125/64 (84) 100 07/24/19 08:30 75 23 134/64 (87) 100 07/24/19 08:00 99.2 64 26 133/68 (89) 100 07/24/19 08:00 Mechanical Ventilator 07/24/19 08:00 35 07/24/19 07:30 68 26 111/60 (77) 100 07/24/19 07:14 100 07/24/19 07:14 75 26 100 Mechanical Ventilator 35 73 26 35 07/24/19 07:00 69 27 108/57 (74) 100 07/24/19 07:00 108/57 07/24/19 07:00 27 108/57 Mechanical Ventilator 40 07/24/19 06:30 75 26 07/24/19 06:00 75 27 112/73 (86) 100 07/24/19 06:00 112/73 07/24/19 06:00 27 112/73 Mechanical Ventilator 40 07/24/19 05:30 73 27 119/70 (86) 100 07/24/19 05:00 73 27 128/60 (82) 100 07/24/19 05:00 128/60 07/24/19 05:00 27 128/60 Mechanical Ventilator 40 07/24/19 04:00 99.0 73 27 119/62 (81) 100 07/24/19 04:00 119/67 07/24/19 04:00 27 119/67 Mechanical Ventilator 40 07/24/19 04:00 71 07/24/19 04:00 Mechanical Ventilator 07/24/19 04:00 40 07/24/19 03:08 76 31 100 Mechanical Ventilator 40 76 31 40 07/24/19 03:00 100/54 07/24/19 03:00 26 100/54 Mechanical Ventilator 40 07/24/19 03:00 76 26 100/54 (69) 100 07/24/19 02:00 112/63 07/24/19 02:00 27 112/63 Mechanical Ventilator 40 07/24/19 02:00 68 27 112/63 (79) 100 07/24/19 01:00 106/59 07/24/19 01:00 26 106/59 Mechanical Ventilator 40 07/24/19 01:00 71 28 106/59 (75) 100 07/24/19 00:53 27 97/58 Mechanical Ventilator 40 07/24/19 00:00 40 07/24/19 00:00 75 07/24/19 00:00 116/59 07/24/19 00:00 26 116/59 Mechanical Ventilator 45 07/24/19 00:00 Mechanical Ventilator 07/24/19 00:00 99.0 72 27 116/59 (78) 100 07/23/19 23:06 73 27 100 Mechanical Ventilator 40 73 27 40 07/23/19 23:00 108/59 07/23/19 23:00 27 108/59 Mechanical Ventilator 45 07/23/19 23:00 74 27 108/59 (75) 100 07/23/19 22:00 73 25 113/64 (80) 100 07/23/19 22:00 113/64 07/23/19 22:00 25 113/64 Mechanical Ventilator 45 07/23/19 21:45 73 27 115/61 (79) 100 07/23/19 21:30 73 27 107/58 (74) 100 07/23/19 21:15 72 29 113/64 (80) 100 07/23/19 21:00 70 26 137/62 (87) 100 07/23/19 21:00 137/62 07/23/19 21:00 26 137/62 Mechanical Ventilator 45 07/23/19 20:30 68 26 122/61 (81) 100 07/23/19 20:00 Mechanical Ventilator 07/23/19 20:00 45 07/23/19 20:00 70 07/23/19 20:00 99.0 68 26 112/65 (81) 100 07/23/19 20:00 112/65 07/23/19 20:00 26 112/65 Mechanical Ventilator 45 07/23/19 19:30 68 26 98/58 (71) 100 07/23/19 19:12 82/57 07/23/19 19:09 83 26 100 Mechanical Ventilator 40 83 26 40 07/23/19 19:00 73 26 82/57 (65) 100 07/23/19 18:30 74 25 113/59 (77) 100 07/23/19 18:00 103/57 07/23/19 18:00 25 103/57 Mechanical Ventilator 45 07/23/19 18:00 73 26 103/57 (72) 100 07/23/19 17:30 77 26 118/61 (80) 100 07/23/19 17:00 78 26 122/69 (86) 100 07/23/19 17:00 122/69 07/23/19 17:00 26 122/69 Mechanical Ventilator 45 07/23/19 16:45 126/71 07/23/19 16:30 130/69 07/23/19 16:30 77 23 130/69 (89) 100 07/23/19 16:15 145/71 07/23/19 16:00 74 07/23/19 16:00 120/64 07/23/19 16:00 26 120/64 Mechanical Ventilator 45 07/23/19 16:00 Mechanical Ventilator 07/23/19 16:00 45 07/23/19 16:00 99.5 72 26 120/64 (82) 100 07/23/19 15:45 79/45 07/23/19 15:30 69 26 110/71 (84) 100 07/23/19 15:16 71 26 100 Mechanical Ventilator 40 70 26 40 07/23/19 15:00 71 23 113/64 (80) 100 07/23/19 15:00 113/64 07/23/19 15:00 26 113/64 Mechanical Ventilator 45 07/23/19 14:30 70 23 115/63 (80) 100 07/23/19 14:00 67 26 107/64 (78) 100 07/23/19 14:00 107/64 07/23/19 14:00 25 107/64 Mechanical Ventilator 45 07/23/19 13:30 67 26 100/56 (71) 100 07/23/19 13:00 113/65 07/23/19 13:00 26 113/65 Mechanical Ventilator 45 07/23/19 13:00 71 25 113/65 (81) 100 07/23/19 12:30 67 26 106/61 (76) 100 07/23/19 12:00 69 07/23/19 12:00 98.4 70 26 98/65 (76) 99 07/23/19 12:00 106/61 07/23/19 12:00 26 106/61 Mechanical Ventilator 45 07/23/19 12:00 Mechanical Ventilator 07/23/19 12:00 45 07/23/19 11:30 70 26 105/63 (77) 100 07/23/19 11:00 105/63 07/23/19 11:00 26 105/63 Mechanical Ventilator 45 07/23/19 11:00 71 24 93/56 (68) 99 07/23/19 10:52 70 26 100 Mechanical Ventilator 40 67 26 40 07/23/19 10:30 66 26 114/71 (85) 100 Intake and Output 07/23/19 07/24/19 19:00 07:00 Intake Total 751.875 ml 727.94 ml Output Total 2000 ml Balance -1248.125 ml 727.94 ml Free Water 150 ml 50 ml IV Total 181.875 ml 257.94 ml Tube Feeding 420 ml 420 ml Hemodialysis UF 2000 ml # Bowel Movements 2 Laboratory Tests 07/24/19 03:30: White Blood Count 17.9H, Red Blood Count 3.26L, Hemoglobin 9.6L, Hematocrit 31.0L, Mean Corpuscular Volume 95, Mean Corpuscular Hemoglobin 29.6, Mean Corpuscular Hemoglobin Concent 31.1L, Red Cell Distribution Width 16.5H, Platelet Count 229, Mean Platelet Volume 7.7, Neutrophils (%) (Auto) 83.7H, Lymphocytes (%) (Auto) 6.8L, Monocytes (%) (Auto) 5.6, Eosinophils (%) (Auto) 3.3H, Basophils (%) (Auto) 0.5, Sodium Level 138, Potassium Level 3.6, Chloride Level 98, Carbon Dioxide Level 28, Anion Gap 12, Blood Urea Nitrogen 55H, Creatinine 7.3H, Estimat Glomerular Filtration Rate 7.5, Glucose Level 160H, Calcium Level 9.0, Total Bilirubin 0.4, Aspartate Amino Transf (AST/SGOT) 18, Alanine Aminotransferase (ALT/SGPT) 11L, Alkaline Phosphatase 115, Total Protein 8.5H, Albumin 3.1L, Globulin 5.4, Albumin/Globulin Ratio 0.6L, Random Vancomycin Level 19.9 Height (Feet): 6 Height (Inches): 1.00 Weight (Pounds): 187 General Appearance: no apparent distress EENT: other - Trach and vent Cardiovascular: normal rate Respiratory/Chest: decreased breath sounds Abdomen: soft, other - PEG Objective No change Mic Cole MD Jul 24, 2019 10:25
--- NOTE | 2019-07-24 11:25 | General Progress Note ---
Assessment/Plan Status: unchanged, deteriorating Assessment/Plan: 1. Diabetes. 2. Hypertension. 3. Coronary artery disease. 4. COPD. 5. Psychiatric disorder with schizophrenia. 6. History of hepatitis C. 7. HLP. 8. Chronic kidney disease, now with acute renal failure. 9. Anemia. 10. Hypothyroidism. 11. Spinal stenosis. 12. Constipation. 13. GERD. 14. COVID positive HD per nephrology fu labs icu care s/p PEG GTF monitor for residuals Subjective ROS Limited/Unobtainable: No Allergies: Coded Allergies: No Known Allergies (Unverified , 05/28/19) Objective Last 24 Hour Vital Signs Date Time Temp Pulse Resp B/P (MAP) Pulse Ox O2 Delivery O2 Flow Rate FiO2 07/24/19 09:00 70 28 125/64 (84) 100 07/24/19 08:30 75 23 134/64 (87) 100 07/24/19 08:00 99.2 64 26 133/68 (89) 100 07/24/19 08:00 Mechanical Ventilator 07/24/19 08:00 35 07/24/19 07:30 68 26 111/60 (77) 100 07/24/19 07:14 100 07/24/19 07:14 75 26 100 Mechanical Ventilator 35 73 26 35 07/24/19 07:00 69 27 108/57 (74) 100 07/24/19 07:00 108/57 07/24/19 07:00 27 108/57 Mechanical Ventilator 40 07/24/19 06:30 75 26 07/24/19 06:00 75 27 112/73 (86) 100 07/24/19 06:00 112/73 07/24/19 06:00 27 112/73 Mechanical Ventilator 40 07/24/19 05:30 73 27 119/70 (86) 100 07/24/19 05:00 73 27 128/60 (82) 100 07/24/19 05:00 128/60 07/24/19 05:00 27 128/60 Mechanical Ventilator 40 07/24/19 04:00 99.0 73 27 119/62 (81) 100 07/24/19 04:00 119/67 07/24/19 04:00 27 119/67 Mechanical Ventilator 40 07/24/19 04:00 71 07/24/19 04:00 Mechanical Ventilator 07/24/19 04:00 40 07/24/19 03:08 76 31 100 Mechanical Ventilator 40 76 31 40 07/24/19 03:00 100/54 07/24/19 03:00 26 100/54 Mechanical Ventilator 40 07/24/19 03:00 76 26 100/54 (69) 100 07/24/19 02:00 112/63 07/24/19 02:00 27 112/63 Mechanical Ventilator 40 07/24/19 02:00 68 27 112/63 (79) 100 07/24/19 01:00 106/59 07/24/19 01:00 26 106/59 Mechanical Ventilator 40 07/24/19 01:00 71 28 106/59 (75) 100 07/24/19 00:53 27 97/58 Mechanical Ventilator 40 07/24/19 00:00 40 07/24/19 00:00 75 07/24/19 00:00 116/59 07/24/19 00:00 26 116/59 Mechanical Ventilator 45 07/24/19 00:00 Mechanical Ventilator 07/24/19 00:00 99.0 72 27 116/59 (78) 100 07/23/19 23:06 73 27 100 Mechanical Ventilator 40 73 27 40 07/23/19 23:00 108/59 07/23/19 23:00 27 108/59 Mechanical Ventilator 45 07/23/19 23:00 74 27 108/59 (75) 100 07/23/19 22:00 73 25 113/64 (80) 100 07/23/19 22:00 113/64 07/23/19 22:00 25 113/64 Mechanical Ventilator 45 07/23/19 21:45 73 27 115/61 (79) 100 07/23/19 21:30 73 27 107/58 (74) 100 07/23/19 21:15 72 29 113/64 (80) 100 07/23/19 21:00 70 26 137/62 (87) 100 07/23/19 21:00 137/62 07/23/19 21:00 26 137/62 Mechanical Ventilator 45 07/23/19 20:30 68 26 122/61 (81) 100 07/23/19 20:00 Mechanical Ventilator 07/23/19 20:00 45 07/23/19 20:00 70 07/23/19 20:00 99.0 68 26 112/65 (81) 100 07/23/19 20:00 112/65 07/23/19 20:00 26 112/65 Mechanical Ventilator 45 07/23/19 19:30 68 26 98/58 (71) 100 07/23/19 19:12 82/57 07/23/19 19:09 83 26 100 Mechanical Ventilator 40 83 26 40 07/23/19 19:00 73 26 82/57 (65) 100 07/23/19 18:30 74 25 113/59 (77) 100 07/23/19 18:00 103/57 07/23/19 18:00 25 103/57 Mechanical Ventilator 45 07/23/19 18:00 73 26 103/57 (72) 100 07/23/19 17:30 77 26 118/61 (80) 100 07/23/19 17:00 78 26 122/69 (86) 100 07/23/19 17:00 122/69 07/23/19 17:00 26 122/69 Mechanical Ventilator 45 07/23/19 16:45 126/71 07/23/19 16:30 130/69 07/23/19 16:30 77 23 130/69 (89) 100 07/23/19 16:15 145/71 07/23/19 16:00 74 07/23/19 16:00 120/64 07/23/19 16:00 26 120/64 Mechanical Ventilator 45 07/23/19 16:00 Mechanical Ventilator 07/23/19 16:00 45 07/23/19 16:00 99.5 72 26 120/64 (82) 100 07/23/19 15:45 79/45 07/23/19 15:30 69 26 110/71 (84) 100 07/23/19 15:16 71 26 100 Mechanical Ventilator 40 70 26 40 07/23/19 15:00 71 23 113/64 (80) 100 07/23/19 15:00 113/64 07/23/19 15:00 26 113/64 Mechanical Ventilator 45 07/23/19 14:30 70 23 115/63 (80) 100 07/23/19 14:00 67 26 107/64 (78) 100 07/23/19 14:00 107/64 07/23/19 14:00 25 107/64 Mechanical Ventilator 45 07/23/19 13:30 67 26 100/56 (71) 100 07/23/19 13:00 113/65 07/23/19 13:00 26 113/65 Mechanical Ventilator 45 07/23/19 13:00 71 25 113/65 (81) 100 07/23/19 12:30 67 26 106/61 (76) 100 07/23/19 12:00 69 07/23/19 12:00 98.4 70 26 98/65 (76) 99 07/23/19 12:00 106/61 07/23/19 12:00 26 106/61 Mechanical Ventilator 45 07/23/19 12:00 Mechanical Ventilator 07/23/19 12:00 45 07/23/19 11:30 70 26 105/63 (77) 100 Intake and Output 07/23/19 07/24/19 19:00 07:00 Intake Total 751.875 ml 727.94 ml Output Total 2000 ml Balance -1248.125 ml 727.94 ml Free Water 150 ml 50 ml IV Total 181.875 ml 257.94 ml Tube Feeding 420 ml 420 ml Hemodialysis UF 2000 ml # Bowel Movements 2 Laboratory Tests 07/24/19 03:30: White Blood Count 17.9H, Red Blood Count 3.26L, Hemoglobin 9.6L, Hematocrit 31.0L, Mean Corpuscular Volume 95, Mean Corpuscular Hemoglobin 29.6, Mean Corpuscular Hemoglobin Concent 31.1L, Red Cell Distribution Width 16.5H, Platelet Count 229, Mean Platelet Volume 7.7, Neutrophils (%) (Auto) 83.7H, Lymphocytes (%) (Auto) 6.8L, Monocytes (%) (Auto) 5.6, Eosinophils (%) (Auto) 3.3H, Basophils (%) (Auto) 0.5, Sodium Level 138, Potassium Level 3.6, Chloride Level 98, Carbon Dioxide Level 28, Anion Gap 12, Blood Urea Nitrogen 55H, Creatinine 7.3H, Estimat Glomerular Filtration Rate 7.5, Glucose Level 160H, Calcium Level 9.0, Total Bilirubin 0.4, Aspartate Amino Transf (AST/SGOT) 18, Alanine Aminotransferase (ALT/SGPT) 11L, Alkaline Phosphatase 115, Total Protein 8.5H, Albumin 3.1L, Globulin 5.4, Albumin/Globulin Ratio 0.6L, Random Vancomycin Level 19.9 Height (Feet): 6 Height (Inches): 1.00 Weight (Pounds): 187 General Appearance: no apparent distress EENT: normal ENT inspection Neck: supple Cardiovascular: normal rate Respiratory/Chest: accessory muscle use Abdomen: normal bowel sounds, non tender, soft Extremities: non-tender Marito Ramires MD Jul 24, 2019 11:25
--- NOTE | 2019-07-24 13:11 | Pulmonolgy Critical Care Note ---
Critical Care - Asmt/Plan Assessment/Plan: Pulmonary CCM Progress Note HPI: Patient is a 68 year old man, [facility] resident, admitted c/o shortness of breath, cough, noted to have Covid 19 Pneumonia, Respiratory Failure Remains on Ventilator, CXR infiltrates stable Septic Shock, remains on pressors - Mitodrine , less Levophed Preserved EF FIO2 40%, P5, adequate O2 sats, remains on ACVC, s/p Tracheostomy previously, sp PEG ID following, on broad spectrum AB Past Medical History: COPD, CKD, Hypertension, Anemia Allergies: No Known Allergies Improving Pulmonary Status on HD Physical Exam Vital Signs Noted Stable on ventilator Chronically ill appearing HEENT: moist mm, trach Chest: Occasional rhonchi, BS equal bilaterally Heart: HS1, HS2, RRR Abdomen: SNTND G tube Extremities: No edema, well perfused 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, 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 Impression: COVID-19 virus infection Pneumonia Respiratory failure on ventilator, wean as tolerated once off pressors CKD - on HD Hypotension on pressors previously Cardiomegaly Lymphopenia Elevated AST COPD Chronic Kidney Disease - HD H/o Hypertension Worsening anemia Plan: SP Tracheostomy / G tube Antibiotics per ID HD Pressors PRN ACVC - wean as tolerated 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 Monitor cultures/viral studies PPX Hemodialysis per Renal Psychiatry following Laboratory Tests Noted: CXR: Hypoventilatory exam, interstitial changes, cardiomegaly, improving infiltrates Subjective ROS Limited/Unobtainable: No Constitutional: Denies: fever Respiratory: Reports: dry cough, shortness of breath Gastrointestinal/Abdominal: Reports: diarrhea, other - colace was stopped Psychiatric: Reports: other - refuses labs Allergies: Coded Allergies: No Known Allergies (Unverified , 05/28/19) All Systems: reviewed and negative except above Labs noted Critical Care - Objective Last 24 Hour Vital Signs Date Time Temp Pulse Resp B/P (MAP) Pulse Ox O2 Delivery O2 Flow Rate FiO2 07/24/19 12:00 35 07/24/19 11:09 71 26 100 Mechanical Ventilator 30 70 28 30 07/24/19 09:00 70 28 125/64 (84) 100 07/24/19 08:30 75 23 134/64 (87) 100 07/24/19 08:00 99.2 64 26 133/68 (89) 100 07/24/19 08:00 Mechanical Ventilator 07/24/19 08:00 35 07/24/19 07:30 68 26 111/60 (77) 100 07/24/19 07:14 100 07/24/19 07:14 75 26 100 Mechanical Ventilator 35 73 26 35 07/24/19 07:00 69 27 108/57 (74) 100 07/24/19 07:00 108/57 07/24/19 07:00 27 108/57 Mechanical Ventilator 40 07/24/19 06:30 75 26 07/24/19 06:00 75 27 112/73 (86) 100 07/24/19 06:00 112/73 07/24/19 06:00 27 112/73 Mechanical Ventilator 40 07/24/19 05:30 73 27 119/70 (86) 100 07/24/19 05:00 73 27 128/60 (82) 100 07/24/19 05:00 128/60 07/24/19 05:00 27 128/60 Mechanical Ventilator 40 07/24/19 04:00 99.0 73 27 119/62 (81) 100 07/24/19 04:00 119/67 07/24/19 04:00 27 119/67 Mechanical Ventilator 40 07/24/19 04:00 71 07/24/19 04:00 Mechanical Ventilator 07/24/19 04:00 40 07/24/19 03:08 76 31 100 Mechanical Ventilator 40 76 31 40 07/24/19 03:00 100/54 07/24/19 03:00 26 100/54 Mechanical Ventilator 40 07/24/19 03:00 76 26 100/54 (69) 100 07/24/19 02:00 112/63 07/24/19 02:00 27 112/63 Mechanical Ventilator 40 07/24/19 02:00 68 27 112/63 (79) 100 07/24/19 01:00 106/59 07/24/19 01:00 26 106/59 Mechanical Ventilator 40 07/24/19 01:00 71 28 106/59 (75) 100 07/24/19 00:53 27 97/58 Mechanical Ventilator 40 07/24/19 00:00 40 07/24/19 00:00 75 07/24/19 00:00 116/59 07/24/19 00:00 26 116/59 Mechanical Ventilator 45 07/24/19 00:00 Mechanical Ventilator 07/24/19 00:00 99.0 72 27 116/59 (78) 100 07/23/19 23:06 73 27 100 Mechanical Ventilator 40 73 27 40 07/23/19 23:00 108/59 07/23/19 23:00 27 108/59 Mechanical Ventilator 45 07/23/19 23:00 74 27 108/59 (75) 100 07/23/19 22:00 73 25 113/64 (80) 100 07/23/19 22:00 113/64 07/23/19 22:00 25 113/64 Mechanical Ventilator 45 07/23/19 21:45 73 27 115/61 (79) 100 07/23/19 21:30 73 27 107/58 (74) 100 07/23/19 21:15 72 29 113/64 (80) 100 07/23/19 21:00 70 26 137/62 (87) 100 07/23/19 21:00 137/62 07/23/19 21:00 26 137/62 Mechanical Ventilator 45 07/23/19 20:30 68 26 122/61 (81) 100 07/23/19 20:00 Mechanical Ventilator 07/23/19 20:00 45 07/23/19 20:00 70 07/23/19 20:00 99.0 68 26 112/65 (81) 100 07/23/19 20:00 112/65 07/23/19 20:00 26 112/65 Mechanical Ventilator 45 07/23/19 19:30 68 26 98/58 (71) 100 07/23/19 19:12 82/57 07/23/19 19:09 83 26 100 Mechanical Ventilator 40 83 26 40 07/23/19 19:00 73 26 82/57 (65) 100 07/23/19 18:30 74 25 113/59 (77) 100 07/23/19 18:00 103/57 07/23/19 18:00 25 103/57 Mechanical Ventilator 45 07/23/19 18:00 73 26 103/57 (72) 100 07/23/19 17:30 77 26 118/61 (80) 100 07/23/19 17:00 78 26 122/69 (86) 100 07/23/19 17:00 122/69 07/23/19 17:00 26 122/69 Mechanical Ventilator 45 07/23/19 16:45 126/71 6/12/20 16:30 130/69 07/23/19 16:30 77 23 130/69 (89) 100 07/23/19 16:15 145/71 07/23/19 16:00 74 07/23/19 16:00 120/64 07/23/19 16:00 26 120/64 Mechanical Ventilator 45 07/23/19 16:00 Mechanical Ventilator 07/23/19 16:00 45 07/23/19 16:00 99.5 72 26 120/64 (82) 100 07/23/19 15:45 79/45 07/23/19 15:30 69 26 110/71 (84) 100 07/23/19 15:16 71 26 100 Mechanical Ventilator 40 70 26 40 07/23/19 15:00 71 23 113/64 (80) 100 07/23/19 15:00 113/64 07/23/19 15:00 26 113/64 Mechanical Ventilator 45 07/23/19 14:30 70 23 115/63 (80) 100 07/23/19 14:00 67 26 107/64 (78) 100 07/23/19 14:00 107/64 07/23/19 14:00 25 107/64 Mechanical Ventilator 45 07/23/19 13:30 67 26 100/56 (71) 100 Accucheck: 251 Critical Care - Subjective ROS Limited/Unobtainable: No Condition: critical FI02: 35 Vent Support Breath Rate: 26 Vent Support Mode: AC Vent Tidal Volume: 500 Sputum Amount: Moderate PEEP: 5.0 PIP: 24 Tube Feeding Amount: 35 I&O: Intake and Output 07/23/19 07/24/19 19:00 07:00 Intake Total 751.875 ml 727.94 ml Output Total 2000 ml Balance -1248.125 ml 727.94 ml Free Water 150 ml 50 ml IV Total 181.875 ml 257.94 ml Tube Feeding 420 ml 420 ml Hemodialysis UF 2000 ml # Bowel Movements 2 ET-Tube: 7.5 ET Position: 24 Arturo Mckeon MD Jul 24, 2019 13:11
--- NOTE | 2019-07-24 13:14 | Surgery Progress Note ---
Surgery Progress Note Subjective Procedure Performed Right femoral temporary hemodialysis catheter removal Additional Comments weaning off pressors labs noted exam stable Objective Last 24 Hour Vital Signs Date Time Temp Pulse Resp B/P (MAP) Pulse Ox O2 Delivery O2 Flow Rate FiO2 07/24/19 13:00 72 28 101/62 (75) 100 07/24/19 12:30 75 26 104/60 (75) 100 07/24/19 12:00 98.4 77 28 102/53 (69) 100 07/24/19 12:00 35 07/24/19 11:30 78 26 93/55 (68) 100 07/24/19 11:09 71 26 100 Mechanical Ventilator 30 70 28 30 07/24/19 11:00 75 24 142/70 (94) 100 07/24/19 10:30 74 29 136/69 (91) 100 07/24/19 10:00 72 29 117/57 (77) 100 07/24/19 09:30 77 25 125/59 (81) 100 07/24/19 09:00 70 28 125/64 (84) 100 07/24/19 08:30 75 23 134/64 (87) 100 07/24/19 08:00 99.2 64 26 133/68 (89) 100 07/24/19 08:00 Mechanical Ventilator 07/24/19 08:00 35 07/24/19 07:30 68 26 111/60 (77) 100 07/24/19 07:14 100 07/24/19 07:14 75 26 100 Mechanical Ventilator 35 73 26 35 07/24/19 07:00 69 27 108/57 (74) 100 07/24/19 07:00 108/57 07/24/19 07:00 27 108/57 Mechanical Ventilator 40 07/24/19 06:30 75 26 07/24/19 06:00 75 27 112/73 (86) 100 07/24/19 06:00 112/73 07/24/19 06:00 27 112/73 Mechanical Ventilator 40 07/24/19 05:30 73 27 119/70 (86) 100 07/24/19 05:00 73 27 128/60 (82) 100 07/24/19 05:00 128/60 07/24/19 05:00 27 128/60 Mechanical Ventilator 40 07/24/19 04:00 99.0 73 27 119/62 (81) 100 07/24/19 04:00 119/67 07/24/19 04:00 27 119/67 Mechanical Ventilator 40 07/24/19 04:00 71 07/24/19 04:00 Mechanical Ventilator 07/24/19 04:00 40 07/24/19 03:08 76 31 100 Mechanical Ventilator 40 76 31 40 07/24/19 03:00 100/54 07/24/19 03:00 26 100/54 Mechanical Ventilator 40 07/24/19 03:00 76 26 100/54 (69) 100 07/24/19 02:00 112/63 07/24/19 02:00 27 112/63 Mechanical Ventilator 40 07/24/19 02:00 68 27 112/63 (79) 100 07/24/19 01:00 106/59 07/24/19 01:00 26 106/59 Mechanical Ventilator 40 07/24/19 01:00 71 28 106/59 (75) 100 07/24/19 00:53 27 97/58 Mechanical Ventilator 40 07/24/19 00:00 40 07/24/19 00:00 75 07/24/19 00:00 116/59 07/24/19 00:00 26 116/59 Mechanical Ventilator 45 07/24/19 00:00 Mechanical Ventilator 07/24/19 00:00 99.0 72 27 116/59 (78) 100 07/23/19 23:06 73 27 100 Mechanical Ventilator 40 73 27 40 07/23/19 23:00 108/59 07/23/19 23:00 27 108/59 Mechanical Ventilator 45 07/23/19 23:00 74 27 108/59 (75) 100 07/23/19 22:00 73 25 113/64 (80) 100 07/23/19 22:00 113/64 07/23/19 22:00 25 113/64 Mechanical Ventilator 45 07/23/19 21:45 73 27 115/61 (79) 100 07/23/19 21:30 73 27 107/58 (74) 100 07/23/19 21:15 72 29 113/64 (80) 100 07/23/19 21:00 70 26 137/62 (87) 100 07/23/19 21:00 137/62 07/23/19 21:00 26 137/62 Mechanical Ventilator 45 07/23/19 20:30 68 26 122/61 (81) 100 07/23/19 20:00 Mechanical Ventilator 07/23/19 20:00 45 07/23/19 20:00 70 07/23/19 20:00 99.0 68 26 112/65 (81) 100 07/23/19 20:00 112/65 07/23/19 20:00 26 112/65 Mechanical Ventilator 45 07/23/19 19:30 68 26 98/58 (71) 100 07/23/19 19:12 82/57 07/23/19 19:09 83 26 100 Mechanical Ventilator 40 83 26 40 07/23/19 19:00 73 26 82/57 (65) 100 07/23/19 18:30 74 25 113/59 (77) 100 07/23/19 18:00 103/57 07/23/19 18:00 25 103/57 Mechanical Ventilator 45 07/23/19 18:00 73 26 103/57 (72) 100 07/23/19 17:30 77 26 118/61 (80) 100 07/23/19 17:00 78 26 122/69 (86) 100 07/23/19 17:00 122/69 07/23/19 17:00 26 122/69 Mechanical Ventilator 45 07/23/19 16:45 126/71 07/23/19 16:30 130/69 07/23/19 16:30 77 23 130/69 (89) 100 07/23/19 16:15 145/71 07/23/19 16:00 74 07/23/19 16:00 120/64 07/23/19 16:00 26 120/64 Mechanical Ventilator 45 07/23/19 16:00 Mechanical Ventilator 07/23/19 16:00 45 07/23/19 16:00 99.5 72 26 120/64 (82) 100 07/23/19 15:45 79/45 07/23/19 15:30 69 26 110/71 (84) 100 07/23/19 15:16 71 26 100 Mechanical Ventilator 40 70 26 40 07/23/19 15:00 71 23 113/64 (80) 100 07/23/19 15:00 113/64 07/23/19 15:00 26 113/64 Mechanical Ventilator 45 07/23/19 14:30 70 23 115/63 (80) 100 07/23/19 14:00 67 26 107/64 (78) 100 07/23/19 14:00 107/64 07/23/19 14:00 25 107/64 Mechanical Ventilator 45 07/23/19 13:30 67 26 100/56 (71) 100 I&O Intake and Output 07/23/19 07/24/19 19:00 07:00 Intake Total 751.875 ml 727.94 ml Output Total 2000 ml Balance -1248.125 ml 727.94 ml Free Water 150 ml 50 ml IV Total 181.875 ml 257.94 ml Tube Feeding 420 ml 420 ml Hemodialysis UF 2000 ml # Bowel Movements 2 Dressing: other Wound: other Drains: other Cardiovascular: RSR Respiratory: decreased breath sounds Abdomen: soft, present bowel sounds Extremities: no cyanosis Laboratory Tests Test 07/24/19 03:30 White Blood Count 17.9 K/UL (4.8-10.8) H Red Blood Count 3.26 M/UL (4.70-6.10) L Hemoglobin 9.6 G/DL (14.2-18.0) L Hematocrit 31.0 % (42.0-52.0) L Mean Corpuscular Volume 95 FL (80-99) Mean Corpuscular Hemoglobin 29.6 PG (27.0-31.0) Mean Corpuscular Hemoglobin Concent 31.1 G/DL (32.0-36.0) L Red Cell Distribution Width 16.5 % (11.6-14.8) H Platelet Count 229 K/UL (150-450) Mean Platelet Volume 7.7 FL (6.5-10.1) Neutrophils (%) (Auto) 83.7 % (45.0-75.0) H Lymphocytes (%) (Auto) 6.8 % (20.0-45.0) L Monocytes (%) (Auto) 5.6 % (1.0-10.0) Eosinophils (%) (Auto) 3.3 % (0.0-3.0) H Basophils (%) (Auto) 0.5 % (0.0-2.0) Sodium Level 138 MMOL/L (136-145) Potassium Level 3.6 MMOL/L (3.5-5.1) Chloride Level 98 MMOL/L (98-107) Carbon Dioxide Level 28 MMOL/L (21-32) Anion Gap 12 mmol/L (5-15) Blood Urea Nitrogen 55 mg/dL (7-18) H Creatinine 7.3 MG/DL (0.55-1.30) H Estimat Glomerular Filtration Rate 7.5 mL/min (>60) Glucose Level 160 MG/DL (74-106) H Calcium Level 9.0 MG/DL (8.5-10.1) Total Bilirubin 0.4 MG/DL (0.2-1.0) Aspartate Amino Transf (AST/SGOT) 18 U/L (15-37) Alanine Aminotransferase (ALT/SGPT) 11 U/L (12-78) L Alkaline Phosphatase 115 U/L (46-116) Total Protein 8.5 G/DL (6.4-8.2) H Albumin 3.1 G/DL (3.4-5.0) L Globulin 5.4 g/dL Albumin/Globulin Ratio 0.6 (1.0-2.7) L Random Vancomycin Level 19.9 ug/mL Plan Problems: (1) Suspected COVID-19 virus infection (2) HTN (hypertension) (3) CASSANDRA (acute kidney injury) Assessment & Plan: Needs urgent HD needs access patient okay and consented see note will follow with recs new line placed discussed with team and nephrology HD line functional when checked has TPA now please use appropriately Cathflo used again this flow during dialysis on 430 was low. Will monitor may need line change 5/4 plan for HD as per renal may need to take fluid off with HD edema anasarca dressings saturated and changed will monitor cont with HD IJ left line placed for HD given extent of prior line in place. leukocytosis blood cx negative may need to change out line new line okay HD going well (4) Anemia in chronic kidney disease (CKD) (5) Anemia (6) Renal failure (7) Suspected COVID-19 virus infection Assessment & Plan: Pt deconditioned and despite all skin preventions Pt noted to have developed several pressure injuries. . Stable dry eschar noted to clefts of R and L ears. No erythema noted . DTPI noted to L trochanter. Base of injury is maroon in colour with marginal erythema along borders. Partially opened DTPI Sacrum, R and L Buttocks. Base of wound is maroon with two small open wounds L sacrum and L buttocks. Pt has an APM/MOMO Mattress overlay and is being positioned with pillows as per tolerance and within protocols. worsening despite medical efforts will cont to provide therapy Tx.Plan: Apply Cavilon Skin Barrier to both ears Daily and prn. Apply Moisture Barrier Paste to Sacrum,R and L Buttocks. Cover with Optifoam drsgs. Change every 3 days and PRN. Apply Cavilon Skin Barrier to R and L trochanter. Cover each site with Optifoam drsgs.Change every 7 days and PRN. Apply Cavilon Skin Barrier to both heels. Cover each heel with Optifoam drsg. Change every 7 days and prn. Off-load heels with pillow. Reposition at least every 2hours or as tolerated. APM/MOMO Mattress overlay. (8) COVID-19 Assessment & Plan: COVID + c diff negative febrile leukocytosis renal insufficiency see above cont resp care Rx as per ID worsening on vent support now cxr noted on pressors prognosis guarded repeat covid ++ weaning vent and pressors off slowly showing improvement slowly recovering will need trach as unable to wean vent safely [facility] obtained s/p trach pending peg worsening on levo max (9) Sepsis Assessment & Plan: worsening leukocytosis febrile on pressors discussed with ID. lines evaluated and clean. he is septic on pressors and needs central access in difficult venous access patient blood cultures negative will monitor Yaniv Mast Jul 24, 2019 13:14
[2019-07-24] MEDS: Acetaminophen 650mg/20.3ml NG PRN (13:27)
--- NOTE | 2019-07-24 16:00 | Cardiac Electrophysiology PN ---
Assessment/Plan Assessment/Plan 1. Elevated troponin. Low level and flat due to renal failure. On Aspirin. EF 60%. 2. Recurrent fever and Septic shock. On Levo 4 mcg, Midodrine 10 tid and Abx 3. ESRD, on HD per Dr. Cole. 4. Resp failure due to COVID-19 positive pneumonia. On the Vent with 40% Fio2. S/P Tracheostomy 07/08/19 5. Dysphagia, S/P PEG 07/13/19 6. COPD. 7. Anemia. JHONY RN Subjective Subjective In ICU, on Vent via trach with 40% Fio2. On Levo 4 mcg, Fentanyl 100 and Midodrine. Awaiting LTAC placement. Covid positive x 9 Objective Last 24 Hour Vital Signs Date Time Temp Pulse Resp B/P (MAP) Pulse Ox O2 Delivery O2 Flow Rate FiO2 07/24/19 15:12 84 28 100 Mechanical Ventilator 30 75 26 30 07/24/19 14:30 73 25 113/54 (73) 100 07/24/19 14:00 73 27 101/53 (69) 100 07/24/19 13:30 74 26 100/62 (75) 100 07/24/19 13:00 72 28 101/62 (75) 100 07/24/19 12:30 75 26 104/60 (75) 100 07/24/19 12:00 98.4 77 28 102/53 (69) 100 07/24/19 12:00 74 07/24/19 12:00 35 07/24/19 12:00 Mechanical Ventilator 07/24/19 11:30 78 26 93/55 (68) 100 07/24/19 11:09 71 26 100 Mechanical Ventilator 30 70 28 30 07/24/19 11:00 75 24 142/70 (94) 100 07/24/19 10:30 74 29 136/69 (91) 100 07/24/19 10:00 72 29 117/57 (77) 100 07/24/19 09:30 77 25 125/59 (81) 100 07/24/19 09:00 70 28 125/64 (84) 100 07/24/19 08:30 75 23 134/64 (87) 100 07/24/19 08:00 99.2 64 26 133/68 (89) 100 07/24/19 08:00 Mechanical Ventilator 07/24/19 08:00 35 07/24/19 08:00 73 07/24/19 07:30 68 26 111/60 (77) 100 07/24/19 07:14 100 07/24/19 07:14 75 26 100 Mechanical Ventilator 35 73 26 35 07/24/19 07:00 69 27 108/57 (74) 100 07/24/19 07:00 108/57 07/24/19 07:00 27 108/57 Mechanical Ventilator 40 07/24/19 06:30 75 26 07/24/19 06:00 75 27 112/73 (86) 100 07/24/19 06:00 112/73 07/24/19 06:00 27 112/73 Mechanical Ventilator 40 07/24/19 05:30 73 27 119/70 (86) 100 07/24/19 05:00 73 27 128/60 (82) 100 07/24/19 05:00 128/60 07/24/19 05:00 27 128/60 Mechanical Ventilator 40 07/24/19 04:00 99.0 73 27 119/62 (81) 100 07/24/19 04:00 119/67 07/24/19 04:00 27 119/67 Mechanical Ventilator 40 07/24/19 04:00 71 07/24/19 04:00 Mechanical Ventilator 07/24/19 04:00 40 07/24/19 03:08 76 31 100 Mechanical Ventilator 40 76 31 40 07/24/19 03:00 100/54 07/24/19 03:00 26 100/54 Mechanical Ventilator 40 07/24/19 03:00 76 26 100/54 (69) 100 07/24/19 02:00 112/63 07/24/19 02:00 27 112/63 Mechanical Ventilator 40 07/24/19 02:00 68 27 112/63 (79) 100 07/24/19 01:00 106/59 07/24/19 01:00 26 106/59 Mechanical Ventilator 40 07/24/19 01:00 71 28 106/59 (75) 100 07/24/19 00:53 27 97/58 Mechanical Ventilator 40 07/24/19 00:00 40 07/24/19 00:00 75 07/24/19 00:00 116/59 07/24/19 00:00 26 116/59 Mechanical Ventilator 45 07/24/19 00:00 Mechanical Ventilator 07/24/19 00:00 99.0 72 27 116/59 (78) 100 07/23/19 23:06 73 27 100 Mechanical Ventilator 40 73 27 40 07/23/19 23:00 108/59 07/23/19 23:00 27 108/59 Mechanical Ventilator 45 07/23/19 23:00 74 27 108/59 (75) 100 07/23/19 22:00 73 25 113/64 (80) 100 07/23/19 22:00 113/64 07/23/19 22:00 25 113/64 Mechanical Ventilator 45 07/23/19 21:45 73 27 115/61 (79) 100 07/23/19 21:30 73 27 107/58 (74) 100 07/23/19 21:15 72 29 113/64 (80) 100 07/23/19 21:00 70 26 137/62 (87) 100 07/23/19 21:00 137/62 07/23/19 21:00 26 137/62 Mechanical Ventilator 45 07/23/19 20:30 68 26 122/61 (81) 100 07/23/19 20:00 Mechanical Ventilator 07/23/19 20:00 45 07/23/19 20:00 70 07/23/19 20:00 99.0 68 26 112/65 (81) 100 07/23/19 20:00 112/65 07/23/19 20:00 26 112/65 Mechanical Ventilator 45 07/23/19 19:30 68 26 98/58 (71) 100 07/23/19 19:12 82/57 07/23/19 19:09 83 26 100 Mechanical Ventilator 40 83 26 40 07/23/19 19:00 73 26 82/57 (65) 100 07/23/19 18:30 74 25 113/59 (77) 100 07/23/19 18:00 103/57 07/23/19 18:00 25 103/57 Mechanical Ventilator 45 07/23/19 18:00 73 26 103/57 (72) 100 07/23/19 17:30 77 26 118/61 (80) 100 07/23/19 17:00 78 26 122/69 (86) 100 07/23/19 17:00 122/69 07/23/19 17:00 26 122/69 Mechanical Ventilator 45 07/23/19 16:45 126/71 07/23/19 16:30 130/69 07/23/19 16:30 77 23 130/69 (89) 100 07/23/19 16:15 145/71 07/23/19 16:00 74 07/23/19 16:00 120/64 07/23/19 16:00 26 120/64 Mechanical Ventilator 45 07/23/19 16:00 Mechanical Ventilator 07/23/19 16:00 45 07/23/19 16:00 99.5 72 26 120/64 (82) 100 Intake and Output 07/23/19 07/24/19 19:00 07:00 Intake Total 751.875 ml 727.94 ml Output Total 2000 ml Balance -1248.125 ml 727.94 ml Free Water 150 ml 50 ml IV Total 181.875 ml 257.94 ml Tube Feeding 420 ml 420 ml Hemodialysis UF 2000 ml # Bowel Movements 2 Laboratory Tests Test 07/24/19 03:30 White Blood Count 17.9 K/UL (4.8-10.8) H Red Blood Count 3.26 M/UL (4.70-6.10) L Hemoglobin 9.6 G/DL (14.2-18.0) L Hematocrit 31.0 % (42.0-52.0) L Mean Corpuscular Volume 95 FL (80-99) Mean Corpuscular Hemoglobin 29.6 PG (27.0-31.0) Mean Corpuscular Hemoglobin Concent 31.1 G/DL (32.0-36.0) L Red Cell Distribution Width 16.5 % (11.6-14.8) H Platelet Count 229 K/UL (150-450) Mean Platelet Volume 7.7 FL (6.5-10.1) Neutrophils (%) (Auto) 83.7 % (45.0-75.0) H Lymphocytes (%) (Auto) 6.8 % (20.0-45.0) L Monocytes (%) (Auto) 5.6 % (1.0-10.0) Eosinophils (%) (Auto) 3.3 % (0.0-3.0) H Basophils (%) (Auto) 0.5 % (0.0-2.0) Sodium Level 138 MMOL/L (136-145) Potassium Level 3.6 MMOL/L (3.5-5.1) Chloride Level 98 MMOL/L (98-107) Carbon Dioxide Level 28 MMOL/L (21-32) Anion Gap 12 mmol/L (5-15) Blood Urea Nitrogen 55 mg/dL (7-18) H Creatinine 7.3 MG/DL (0.55-1.30) H Estimat Glomerular Filtration Rate 7.5 mL/min (>60) Glucose Level 160 MG/DL (74-106) H Calcium Level 9.0 MG/DL (8.5-10.1) Total Bilirubin 0.4 MG/DL (0.2-1.0) Aspartate Amino Transf (AST/SGOT) 18 U/L (15-37) Alanine Aminotransferase (ALT/SGPT) 11 U/L (12-78) L Alkaline Phosphatase 115 U/L (46-116) Total Protein 8.5 G/DL (6.4-8.2) H Albumin 3.1 G/DL (3.4-5.0) L Globulin 5.4 g/dL Albumin/Globulin Ratio 0.6 (1.0-2.7) L Random Vancomycin Level 19.9 ug/mL Objective HEAD AND NECK: No JVD. Tracheostomy in place. Left IJ HD catheter now in place LUNGS: Decreased breath sounds. CARDIOVASCULAR: Regular S1 and S2. Tachycardic. ABDOMEN: Soft. PEG in place EXTREMITIES: No pitting edema. Left FV Gio Engle MD Jul 24, 2019 16:00
[2019-07-24] MEDS: Dyna-Hex 2% Top Sol 2oz TOPIC SCH (21:33)
[2019-07-25] VITALS (58 sets, daily range): BP systolic 80–148; BP diastolic 46–91
[2019-07-25] MEDS: fentaNYL 2500mcg/NS 250ml 250 ML IV SCH (01:29)
[2019-07-25] MEDS: Acetaminophen 650mg/20.3ml NG PRN (01:30)
[2019-07-25] MEDS: Albuterol 90mcg Inhaler 8gm INH SCH ×6 (03:49→23:56)
[2019-07-25 05:43] LABS: BASOPHILS % (AUTO) 0.6 % (0.0-2.0); EOSINOPHILS % (AUTO) 2.2 % (0.0-3.0); HEMATOCRIT 31.9 % (42.0-52.0); HEMOGLOBIN 9.4 G/DL (14.2-18.0); MEAN CORPUSCULAR VOLUME 98 FL (80-99); MONOCYTES % (AUTO) 6.1 % (1.0-10.0); NEUTROPHILS % (AUTO) 83.1 % (45.0-75.0); PLATELET COUNT 271 K/UL (150-450); RED BLOOD COUNT 3.24 M/UL (4.70-6.10); RED CELL DISTRIBUTION WIDTH 18.6 % (11.6-14.8); WHITE BLOOD COUNT 16.8 K/UL (4.8-10.8)
[2019-07-25] MEDS: Renvela 2400 mg pkt NG SCH ×4 (05:51→23:33)
[2019-07-25] MEDS: Midodrine 10mg tab ORAL SCH ×3 (05:51→21:21)
[2019-07-25] MEDS: NovoLOG Insulin Flexpen SUBQ SCH ×3 (06:05→17:55)
[2019-07-25 06:35] LABS: ALANINE AMINOTRANSFERASE 6 U/L (12-78); ALBUMIN 2.7 G/DL (3.4-5.0); ALBUMIN/GLOBULIN RATIO 0.5 (1.0-2.7); ALKALINE PHOSPHATASE 134 U/L (46-116); ANION GAP 16 mmol/L (5-15); ASPARTATE AMINO TRANSFERASE 15 U/L (15-37); BILIRUBIN,TOTAL 0.5 MG/DL (0.2-1.0); BLOOD UREA NITROGEN 70 mg/dL (7-18); CALCIUM 9.4 MG/DL (8.5-10.1); CARBON DIOXIDE 26 MMOL/L (21-32); CHLORIDE 98 MMOL/L (98-107); CREATININE 8.3 MG/DL (0.55-1.30); PHOSPHORUS 2.9 MG/DL (2.5-4.9); POTASSIUM 3.7 MMOL/L (3.5-5.1); SODIUM 140 MMOL/L (136-145)
[2019-07-25] MEDS: Enoxaparin 30mg Inj SUBQ SCH (08:31)
--- NOTE | 2019-07-25 09:36 | General Progress Note ---
Assessment/Plan Status: unchanged, deteriorating Assessment/Plan: 1. Diabetes. 2. Hypertension. 3. Coronary artery disease. 4. COPD. 5. Psychiatric disorder with schizophrenia. 6. History of hepatitis C. 7. HLP. 8. Chronic kidney disease, now with acute renal failure. 9. Anemia. 10. Hypothyroidism. 11. Spinal stenosis. 12. Constipation. 13. GERD. 14. COVID positive HD per nephrology fu labs icu care s/p PEG GTF monitor for residuals Subjective ROS Limited/Unobtainable: No Allergies: Coded Allergies: No Known Allergies (Unverified , 05/28/19) Objective Last 24 Hour Vital Signs Date Time Temp Pulse Resp B/P (MAP) Pulse Ox O2 Delivery O2 Flow Rate FiO2 07/25/19 09:00 76 30 114/60 (78) 100 07/25/19 08:30 73 21 111/57 (75) 100 07/25/19 08:00 35 07/25/19 08:00 99.1 73 27 109/53 (71) 100 07/25/19 08:00 Mechanical Ventilator 07/25/19 07:30 76 27 116/62 (80) 100 07/25/19 07:24 100 07/25/19 07:20 74 27 100 Mechanical Ventilator 30 77 26 30 07/25/19 07:00 77 23 116/66 (83) 100 07/25/19 07:00 116/66 07/25/19 07:00 26 116/66 Mechanical Ventilator 35 07/25/19 06:45 67 29 88/52 (64) 100 07/25/19 06:30 68 29 93/51 (65) 100 07/25/19 06:15 69 34 89/52 (64) 100 07/25/19 06:00 68 24 07/25/19 06:00 98/52 07/25/19 06:00 26 98/52 Mechanical Ventilator 35 07/25/19 06:00 73 26 98/52 (67) 100 07/25/19 05:45 75 27 115/62 (79) 100 07/25/19 05:30 71 27 100/53 (69) 100 07/25/19 05:15 71 27 113/61 (78) 100 07/25/19 05:00 95/53 07/25/19 05:00 28 95/53 Mechanical Ventilator 35 07/25/19 05:00 71 27 95/53 (67) 100 07/25/19 04:45 76 24 118/61 (80) 100 07/25/19 04:30 78 22 104/55 (71) 100 07/25/19 04:15 77 31 88/51 (63) 100 07/25/19 04:06 76 26 90/52 (65) 100 07/25/19 04:00 98.4 77 26 80/46 (57) 100 07/25/19 04:00 35 07/25/19 04:00 84/46 07/25/19 04:00 29 84/46 Mechanical Ventilator 35 07/25/19 04:00 Mechanical Ventilator 07/25/19 03:45 81 26 108/53 (71) 100 07/25/19 03:30 78 24 90/51 (64) 100 07/25/19 03:30 80 26 100 Mechanical Ventilator 30 82 27 30 07/25/19 03:19 79 07/25/19 03:15 80 26 93/51 (65) 100 07/25/19 03:00 104/61 07/25/19 03:00 26 104/61 Mechanical Ventilator 35 07/25/19 03:00 86 29 104/61 (75) 100 07/25/19 02:45 88 26 117/55 (75) 95 07/25/19 02:30 77 29 117/63 (81) 100 07/25/19 02:15 76 26 104/56 (72) 100 07/25/19 02:00 79 28 109/55 (73) 100 07/25/19 02:00 109/55 07/25/19 02:00 27 109/55 Mechanical Ventilator 35 07/25/19 01:45 74 29 125/73 (90) 100 07/25/19 01:30 75 24 129/67 (87) 100 07/25/19 01:29 27 133/85 Mechanical Ventilator 35 07/25/19 01:15 69 33 104/59 (74) 100 07/25/19 01:00 70 29 98/58 (71) 100 07/25/19 01:00 98/58 07/25/19 01:00 30 98/58 Mechanical Ventilator 35 07/25/19 00:45 71 27 99/54 (69) 100 07/25/19 00:30 72 27 109/62 (78) 100 07/25/19 00:15 70 29 114/65 (81) 100 07/25/19 00:00 114/65 07/25/19 00:00 27 114/65 Mechanical Ventilator 35 07/25/19 00:00 100.1 73 25 92/57 (69) 100 07/25/19 00:00 Mechanical Ventilator 07/24/19 23:45 76 30 127/60 (82) 100 07/24/19 23:30 75 27 100 Mechanical Ventilator 30 76 28 30 07/24/19 23:30 73 26 104/53 (70) 100 07/24/19 23:15 76 29 123/59 (80) 100 07/24/19 23:05 79 07/24/19 23:00 123/59 07/24/19 23:00 26 123/59 Mechanical Ventilator 35 07/24/19 23:00 75 26 122/59 (80) 100 07/24/19 22:45 70 27 129/62 (84) 100 07/24/19 22:30 74 28 123/58 (79) 100 07/24/19 22:15 77 26 113/54 (73) 100 07/24/19 22:00 113/54 07/24/19 22:00 26 113/54 Mechanical Ventilator 35 07/24/19 22:00 75 25 123/59 (80) 100 07/24/19 21:45 76 28 113/55 (74) 100 07/24/19 21:30 76 26 137/62 (87) 100 07/24/19 21:15 73 29 114/56 (75) 100 07/24/19 21:00 76 23 132/60 (84) 100 07/24/19 21:00 114/56 07/24/19 21:00 26 114/56 Mechanical Ventilator 35 07/24/19 20:45 74 24 143/64 (90) 100 07/24/19 20:30 70 28 113/56 (75) 100 07/24/19 20:15 73 25 110/57 (74) 100 07/24/19 20:00 Mechanical Ventilator 07/24/19 20:00 110/57 07/24/19 20:00 25 110/57 Mechanical Ventilator 35 07/24/19 20:00 35 07/24/19 20:00 99.5 74 26 120/62 (81) 100 07/24/19 19:45 73 30 113/63 (80) 100 07/24/19 19:41 75 07/24/19 19:30 76 27 100 Mechanical Ventilator 30 78 27 30 07/24/19 19:30 77 24 110/61 (77) 100 07/24/19 19:15 71 26 100/54 (69) 100 07/24/19 19:00 100/54 07/24/19 19:00 26 100/54 Mechanical Ventilator 35 07/24/19 19:00 77 26 108/56 (73) 100 07/24/19 18:30 74 27 101/58 (72) 100 07/24/19 18:00 78 23 125/64 (84) 100 07/24/19 18:00 111/61 07/24/19 18:00 24 111/61 Mechanical Ventilator 35 07/24/19 17:41 112/64 07/24/19 17:30 78 23 119/68 (85) 100 07/24/19 17:00 111/60 07/24/19 17:00 26 111/60 Mechanical Ventilator 35 07/24/19 17:00 74 29 98/57 (71) 100 07/24/19 16:30 75 26 92/52 (65) 100 07/24/19 16:00 75 07/24/19 16:00 35 07/24/19 16:00 Mechanical Ventilator 07/24/19 16:00 93/53 07/24/19 16:00 26 93/53 Mechanical Ventilator 35 07/24/19 16:00 98.4 79 27 110/59 (76) 100 07/24/19 15:30 83 12 117/84 (95) 94 07/24/19 15:12 84 28 100 Mechanical Ventilator 30 75 26 30 07/24/19 15:00 73 26 103/55 (71) 100 07/24/19 15:00 117/61 07/24/19 15:00 26 117/61 Mechanical Ventilator 35 07/24/19 14:30 73 25 113/54 (73) 100 07/24/19 14:00 101/53 07/24/19 14:00 29 101/53 Mechanical Ventilator 35 07/24/19 14:00 73 27 101/53 (69) 100 07/24/19 13:30 74 26 100/62 (75) 100 07/24/19 13:00 72 28 101/62 (75) 100 07/24/19 13:00 100/62 07/24/19 13:00 27 100/62 Mechanical Ventilator 35 07/24/19 12:30 75 26 104/60 (75) 100 07/24/19 12:00 98.4 77 28 102/53 (69) 100 07/24/19 12:00 74 07/24/19 12:00 89/51 07/24/19 12:00 26 89/51 Mechanical Ventilator 35 07/24/19 12:00 35 07/24/19 12:00 Mechanical Ventilator 07/24/19 11:30 78 26 93/55 (68) 100 07/24/19 11:09 71 26 100 Mechanical Ventilator 30 70 28 30 07/24/19 11:00 92/54 07/24/19 11:00 26 92/54 Mechanical Ventilator 40 07/24/19 11:00 75 24 142/70 (94) 100 07/24/19 10:45 142/70 07/24/19 10:30 74 29 136/69 (91) 100 07/24/19 10:30 128/69 07/24/19 10:15 136/69 07/24/19 10:00 72 29 117/57 (77) 100 07/24/19 10:00 118/77 07/24/19 10:00 29 128/69 Mechanical Ventilator 40 Intake and Output 07/24/19 07/25/19 19:00 07:00 Intake Total 671.95 ml 607.2726 ml Balance 671.95 ml 607.2726 ml Free Water 60 ml IV Total 191.95 ml 187.2726 ml Tube Feeding 420 ml 420 ml # Bowel Movements 2 1 Laboratory Tests 07/25/19 04:00: White Blood Count 16.8H, Red Blood Count 3.24L, Hemoglobin 9.4L, Hematocrit 31.9L, Mean Corpuscular Volume 98, Mean Corpuscular Hemoglobin 28.9, Mean Corpuscular Hemoglobin Concent 29.4L, Red Cell Distribution Width 18.6H, Platelet Count 271, Mean Platelet Volume 8.4, Neutrophils (%) (Auto) 83.1H, Lymphocytes (%) (Auto) 8.0L, Monocytes (%) (Auto) 6.1, Eosinophils (%) (Auto) 2.2, Basophils (%) (Auto) 0.6, Sodium Level 140, Potassium Level 3.7, Chloride Level 98, Carbon Dioxide Level 26, Anion Gap 16H, Blood Urea Nitrogen 70H, Creatinine 8.3H, Estimat Glomerular Filtration Rate 6.5, Glucose Level 175H, Calcium Level 9.4, Phosphorus Level 2.9, Total Bilirubin 0.5, Aspartate Amino Transf (AST/SGOT) 15, Alanine Aminotransferase (ALT/SGPT) 6L, Alkaline Phosphatase 134H, Total Protein 8.0, Albumin 2.7L, Globulin 5.3, Albumin/ Globulin Ratio 0.5L Height (Feet): 6 Height (Inches): 1.00 Weight (Pounds): 187 General Appearance: no apparent distress EENT: normal ENT inspection Neck: supple Cardiovascular: normal rate Respiratory/Chest: decreased breath sounds Abdomen: normal bowel sounds, non tender, soft Extremities: non-tender Marito Ramires MD Jul 25, 2019 09:36
--- NOTE | 2019-07-25 10:04 | Nephrology Progress Note ---
Assessment/Plan Problem List: (1) CASSANDRA (acute kidney injury) (2) Anemia in chronic kidney disease (CKD) (3) HTN (hypertension) (4) COVID-19 Assessment Acute renal failure most likely superimposed on chronic kidney disease Suspected COVID-19 virus infection Possible Pneumonia, lymphopenia, elevated AST Cardiomegaly, possible CHF COPD Hypertension Anemia, most likely related to chronic kidney disease Plan July 24: Lab reviewed. Do dialysis tomorrow. Discussed with RN. July 23: Lab reviewed. Dialyzed yesterday. Discussed with RN. Remains full code. Next dialysis July 25. Will check labs tomorrow. July 22: Labs reviewed. Due for dialysis today. Discussed with RN. Watch borderline low blood pressure. Discussed with dialysis nurse. July 21: Today's lab reviewed. Will arrange for dialysis tomorrow. Discussed with RN. Aim to keep the blood pressure above 100 systolic. Continue per consultants. July 20: Patient was dialyzed yesterday. Could not ultrafiltrate much due to low blood pressure. Discussed with SHANIQUE Dick today. No labs drawn today. Continue per consultants. July 19: Due for dialysis today. Discussed with SHANIQUE Dick. Continue per consultants. July 18: Dialyzed July 16. Will order dialysis tomorrow July 19. Continues to be on ventilator through trach. No labs done today. Continue per consultants. July 17: Dialyzed yesterday. Stable from renal standpoint of view. Remains full code. Status post trach on vent. Status post PEG. Continue per consultants. July 16: Dialysis today. Will resume Midodrin to prevent hypotension. Patient remains full code. July 15: Dialyzed yesterday, due for dialysis tomorrow. Labs and medication list reviewed. Continue per consultants. Patient remains full code. COVID-19 detected again. July 14: Patient currently on dialysis. This is continuation of dialysis from yesterday as yesterday's dialysis was cut short due to catheter malfunction. Labs and medication reviewed. Continue per consultants. July 13: Patient currently on hemodialysis. The dialysis catheter which is a intrajugular Kamlesh has poor flow. Will try TPA. Continue per consultants. July 12: Due for PEG today. Due for dialysis tomorrow. Continue per consultants. Discussed with RN. July 11: Plan for dialysis today. Discussed with RN. Data reviewed. July 10: Plan for dialysis tomorrow July 11. Waiting for consent to proceed with PEG. Continue per consultants. Medication reviewed. Labs reviewed. Discussed with RN. July 09: Dialyzed yesterday. Labs reviewed. Medication reviewed. Next hemodialysis July 11. July 08: Patient has tracheostomy now. Connected to ventilator. Due for dialysis today. Continue per consultants. Discussed with SHANIQUE Romero. July 07: Patient is due for tracheostomy today. Patient was last dialyzed July 05. Will order dialysis for tomorrow. July 06: Patient is intubated on ventilator however the plan is to extubate today. Patient was dialysis yesterday July 05. The dialysis time was cut short due to patient's respiratory distress. Only 1 L was removed during dialysis yesterday. Today's lab reviewed. Continue per consultants. Will arrange for dialysis as needed. July 05: Patient due for dialysis today. Remains intubated. Will schedule permacath placement in a.m. blood cultures on July 04 are negative. July 04: Patient was dialyzed yesterday. Due for dialysis tomorrow. Continues to be intubated. After tomorrow's dialysis will order a permacath. July 03: Dialysis is about to be started now Continues to be intubated Will plan to remove the femoral dialysis catheter and exchanged for a new temporary catheter per ID recommendation We will check surveillance blood culture tomorrow July 02: Patient was dialyzed yesterday and due for dialysis tomorrow Stable from renal standpoint W on dialysis Continue per consultants, weaning....... etc. July 01: Dialysis today Other status unchanged June 30: Due for dialysis tomorrow Remains intubated on ventilator Labs and medication reviewed Discussed with SHANIQUE Stable from renal standpoint of view June 29: Dialyzed yesterday Due for dialysis tomorrow Stable from renal standpoint to view Keeps failing weaning process June 28: Patient due for dialysis today Stable from renal standpoint to view Continue per consultants June 27: Labs reviewed Due due for dialysis June 28 Discussed with SHANIQUE Dick Continue per consultants Remains intubated on ventilator June 26 Labs reviewed Dialyzed yesterday Started on weaning today Continue to monitor renal parameters June 16: On dialysis now Potassium supplement implemented Continue per consultants Next dialysis June 27June 15: Status unchanged Dialyzed yesterday will dialyze again tomorrow Potassium supplements given Discussed with RN June 14: Due dialysis today Status: Remains intubated on ventilator June 22: Status unchanged Dialyzed yesterday and duefordialysistomorrow Serum sodium stable today June 21 Remains intubated on ventilator Due dialysis today Emphasized high sodium bath for dialysis June 20: Remains intubated on ventilator Dialyzed June 19 next dialysis June 21 Serum sodium 128, will give 250 cc 3% saline Remains full code Discussed with RN Iron panel ordered June 19: Discussed with RN. Patient due for dialysis today. Continue pulmonary support. Remains full code. June 18: Patient dialyzed yesterday June 17 Serum sodium improved but still low Arrange for dialysis tomorrow June 19 Continue per consultants June 17: Due for dialysis today Today's lab reviewed, low serum sodium noted, Emphasized on high sodium bath to dialysis nurse Discussed with SHANIQUE Yuen June 16: Dialyzed yesterday Remains intubated Labs reviewed, serum sodium 131 Plan to dialyze tomorrow June 17 with high sodium bath Discussed with SHANIQUE Yuen June 15: Due for dialysis today Labs reviewed Discussed with RN Transfuse 1 unit of packed RBCs today for low hemoglobin of 7.1 June 5: Blood pressure well maintained Receive dialysis June 13 next hemodialysis June 15June 4: Discussed with RN in ICU Patient did not receive proper dialysis yesterday due to dialysis catheter malfunction Catheter to be adjusted today and dialyzed to be resumed today Continue per consultants Positive for COVID 28 June 2: Patient now intubated on mechanical ventilation Discussed with SHANIQUE Yuen, today June 12 Patient received dialysis yesterday June 10 next hemodialysis June 12 Blood pressure better maintained Today's labs reviewed Continue per consultants Previously patient received dialysis last evening June 05, next dialysis June 07 which was incomplete due to patient's hypotension Will start on midodrine for blood pressure support. Meanwhile continue other pressors as needed Previously Patient is doing poorly, septic, white blood cells are rising, Hypotension somewhat improved We will keep n.p.o. , NG tube for medications, and change medication to IV as needed Patient remains full code Monitor vancomycin level Previously: Patient pulled out his femoral catheter yesterday June 03 which was reinserted by Dr. Mast Patient scheduled for dialysis again June 04, which again was not done due to dialysis nurse citing catheter malfunction Meanwhile continue management per ID, pulmonary , and psych. Meanwhile white blood cell count is rising. Patient blood pressure borderline low. Will check ABG Previously May 31 : I believe patient need dialysis treatment He however needs to competency assessment if can make decisions or not I will communicate with Dr. Mulligan Previously: Per pulmonary and ID advice Adjust blood pressure medication Renal diet Anemia work-up 2D echocardiogram refused Kidney ultrasound refused Jules catheter Urine studies Per orders Subjective ROS Limited/Unobtainable: Yes Objective Objective Last 24 Hour Vital Signs Date Time Temp Pulse Resp B/P (MAP) Pulse Ox O2 Delivery O2 Flow Rate FiO2 07/25/19 09:00 76 30 114/60 (78) 100 07/25/19 08:30 73 21 111/57 (75) 100 07/25/19 08:00 35 07/25/19 08:00 99.1 73 27 109/53 (71) 100 07/25/19 08:00 Mechanical Ventilator 07/25/19 07:30 76 27 116/62 (80) 100 07/25/19 07:24 100 07/25/19 07:20 74 27 100 Mechanical Ventilator 30 77 26 30 07/25/19 07:00 77 23 116/66 (83) 100 07/25/19 07:00 116/66 07/25/19 07:00 26 116/66 Mechanical Ventilator 35 07/25/19 06:45 67 29 88/52 (64) 100 07/25/19 06:30 68 29 93/51 (65) 100 07/25/19 06:15 69 34 89/52 (64) 100 07/25/19 06:00 68 24 07/25/19 06:00 98/52 07/25/19 06:00 26 98/52 Mechanical Ventilator 35 07/25/19 06:00 73 26 98/52 (67) 100 07/25/19 05:45 75 27 115/62 (79) 100 07/25/19 05:30 71 27 100/53 (69) 100 07/25/19 05:15 71 27 113/61 (78) 100 07/25/19 05:00 95/53 07/25/19 05:00 28 95/53 Mechanical Ventilator 35 07/25/19 05:00 71 27 95/53 (67) 100 07/25/19 04:45 76 24 118/61 (80) 100 07/25/19 04:30 78 22 104/55 (71) 100 07/25/19 04:15 77 31 88/51 (63) 100 07/25/19 04:06 76 26 90/52 (65) 100 07/25/19 04:00 98.4 77 26 80/46 (57) 100 07/25/19 04:00 35 07/25/19 04:00 84/46 07/25/19 04:00 29 84/46 Mechanical Ventilator 35 07/25/19 04:00 Mechanical Ventilator 07/25/19 03:45 81 26 108/53 (71) 100 07/25/19 03:30 78 24 90/51 (64) 100 07/25/19 03:30 80 26 100 Mechanical Ventilator 30 82 27 30 07/25/19 03:19 79 07/25/19 03:15 80 26 93/51 (65) 100 07/25/19 03:00 104/61 07/25/19 03:00 26 104/61 Mechanical Ventilator 35 07/25/19 03:00 86 29 104/61 (75) 100 07/25/19 02:45 88 26 117/55 (75) 95 07/25/19 02:30 77 29 117/63 (81) 100 07/25/19 02:15 76 26 104/56 (72) 100 07/25/19 02:00 79 28 109/55 (73) 100 07/25/19 02:00 109/55 07/25/19 02:00 27 109/55 Mechanical Ventilator 35 07/25/19 01:45 74 29 125/73 (90) 100 07/25/19 01:30 75 24 129/67 (87) 100 07/25/19 01:29 27 133/85 Mechanical Ventilator 35 07/25/19 01:15 69 33 104/59 (74) 100 07/25/19 01:00 70 29 98/58 (71) 100 07/25/19 01:00 98/58 07/25/19 01:00 30 98/58 Mechanical Ventilator 35 07/25/19 00:45 71 27 99/54 (69) 100 07/25/19 00:30 72 27 109/62 (78) 100 07/25/19 00:15 70 29 114/65 (81) 100 07/25/19 00:00 114/65 07/25/19 00:00 27 114/65 Mechanical Ventilator 35 07/25/19 00:00 100.1 73 25 92/57 (69) 100 6/14/20 00:00 Mechanical Ventilator 07/24/19 23:45 76 30 127/60 (82) 100 07/24/19 23:30 75 27 100 Mechanical Ventilator 30 76 28 30 07/24/19 23:30 73 26 104/53 (70) 100 07/24/19 23:15 76 29 123/59 (80) 100 07/24/19 23:05 79 07/24/19 23:00 123/59 07/24/19 23:00 26 123/59 Mechanical Ventilator 35 07/24/19 23:00 75 26 122/59 (80) 100 07/24/19 22:45 70 27 129/62 (84) 100 07/24/19 22:30 74 28 123/58 (79) 100 07/24/19 22:15 77 26 113/54 (73) 100 07/24/19 22:00 113/54 07/24/19 22:00 26 113/54 Mechanical Ventilator 35 07/24/19 22:00 75 25 123/59 (80) 100 07/24/19 21:45 76 28 113/55 (74) 100 07/24/19 21:30 76 26 137/62 (87) 100 07/24/19 21:15 73 29 114/56 (75) 100 07/24/19 21:00 76 23 132/60 (84) 100 07/24/19 21:00 114/56 07/24/19 21:00 26 114/56 Mechanical Ventilator 35 07/24/19 20:45 74 24 143/64 (90) 100 07/24/19 20:30 70 28 113/56 (75) 100 07/24/19 20:15 73 25 110/57 (74) 100 07/24/19 20:00 Mechanical Ventilator 07/24/19 20:00 110/57 07/24/19 20:00 25 110/57 Mechanical Ventilator 35 07/24/19 20:00 35 07/24/19 20:00 99.5 74 26 120/62 (81) 100 07/24/19 19:45 73 30 113/63 (80) 100 07/24/19 19:41 75 07/24/19 19:30 76 27 100 Mechanical Ventilator 30 78 27 30 07/24/19 19:30 77 24 110/61 (77) 100 07/24/19 19:15 71 26 100/54 (69) 100 07/24/19 19:00 100/54 07/24/19 19:00 26 100/54 Mechanical Ventilator 35 07/24/19 19:00 77 26 108/56 (73) 100 07/24/19 18:30 74 27 101/58 (72) 100 07/24/19 18:00 78 23 125/64 (84) 100 07/24/19 18:00 111/61 07/24/19 18:00 24 111/61 Mechanical Ventilator 35 07/24/19 17:41 112/64 07/24/19 17:30 78 23 119/68 (85) 100 07/24/19 17:00 111/60 07/24/19 17:00 26 111/60 Mechanical Ventilator 35 07/24/19 17:00 74 29 98/57 (71) 100 07/24/19 16:30 75 26 92/52 (65) 100 07/24/19 16:00 75 07/24/19 16:00 35 07/24/19 16:00 Mechanical Ventilator 07/24/19 16:00 93/53 07/24/19 16:00 26 93/53 Mechanical Ventilator 35 07/24/19 16:00 98.4 79 27 110/59 (76) 100 07/24/19 15:30 83 12 117/84 (95) 94 07/24/19 15:12 84 28 100 Mechanical Ventilator 30 75 26 30 07/24/19 15:00 73 26 103/55 (71) 100 07/24/19 15:00 117/61 07/24/19 15:00 26 117/61 Mechanical Ventilator 35 07/24/19 14:30 73 25 113/54 (73) 100 07/24/19 14:00 101/53 07/24/19 14:00 29 101/53 Mechanical Ventilator 35 07/24/19 14:00 73 27 101/53 (69) 100 07/24/19 13:30 74 26 100/62 (75) 100 07/24/19 13:00 72 28 101/62 (75) 100 07/24/19 13:00 100/62 07/24/19 13:00 27 100/62 Mechanical Ventilator 35 07/24/19 12:30 75 26 104/60 (75) 100 07/24/19 12:00 98.4 77 28 102/53 (69) 100 07/24/19 12:00 74 07/24/19 12:00 89/51 07/24/19 12:00 26 89/51 Mechanical Ventilator 35 07/24/19 12:00 35 07/24/19 12:00 Mechanical Ventilator 07/24/19 11:30 78 26 93/55 (68) 100 07/24/19 11:09 71 26 100 Mechanical Ventilator 30 70 28 30 07/24/19 11:00 92/54 07/24/19 11:00 26 92/54 Mechanical Ventilator 40 07/24/19 11:00 75 24 142/70 (94) 100 07/24/19 10:45 142/70 07/24/19 10:30 74 29 136/69 (91) 100 07/24/19 10:30 128/69 07/24/19 10:15 136/69 Intake and Output 07/24/19 07/25/19 19:00 07:00 Intake Total 671.95 ml 607.2726 ml Balance 671.95 ml 607.2726 ml Free Water 60 ml IV Total 191.95 ml 187.2726 ml Tube Feeding 420 ml 420 ml # Bowel Movements 2 1 Laboratory Tests 07/25/19 04:00: White Blood Count 16.8H, Red Blood Count 3.24L, Hemoglobin 9.4L, Hematocrit 31.9L, Mean Corpuscular Volume 98, Mean Corpuscular Hemoglobin 28.9, Mean Corpuscular Hemoglobin Concent 29.4L, Red Cell Distribution Width 18.6H, Platelet Count 271, Mean Platelet Volume 8.4, Neutrophils (%) (Auto) 83.1H, Lymphocytes (%) (Auto) 8.0L, Monocytes (%) (Auto) 6.1, Eosinophils (%) (Auto) 2.2, Basophils (%) (Auto) 0.6, Sodium Level 140, Potassium Level 3.7, Chloride Level 98, Carbon Dioxide Level 26, Anion Gap 16H, Blood Urea Nitrogen 70H, Creatinine 8.3H, Estimat Glomerular Filtration Rate 6.5, Glucose Level 175H, Calcium Level 9.4, Phosphorus Level 2.9, Total Bilirubin 0.5, Aspartate Amino Transf (AST/SGOT) 15, Alanine Aminotransferase (ALT/SGPT) 6L, Alkaline Phosphatase 134H, Total Protein 8.0, Albumin 2.7L, Globulin 5.3, Albumin/ Globulin Ratio 0.5L Height (Feet): 6 Height (Inches): 1.00 Weight (Pounds): 187 General Appearance: no apparent distress EENT: other - Trach and vent Cardiovascular: tachycardia Respiratory/Chest: decreased breath sounds Abdomen: distended Objective No change Mic Cole MD Jul 25, 2019 10:04
--- NOTE | 2019-07-25 10:12 | Pulmonolgy Critical Care Note ---
Critical Care - Asmt/Plan Assessment/Plan: Pulmonary CCM Progress Note HPI: Patient is a 68 year old man, [facility], admitted c/o shortness of breath, cough, noted to have Covid 19 Pneumonia, Respiratory Failure Remains on Ventilator, CXR infiltrates stable Septic Shock, remains on pressors - Mitodrine , less Levophed , not tolerating weaning Preserved EF FIO2 40%, P5, adequate O2 sats, remains on ACVC, s/p Tracheostomy previously, sp PEG ID following, on broad spectrum AB Past Medical History: COPD, CKD, Hypertension, Anemia Allergies: No Known Allergies Improving Pulmonary Status on HD Physical Exam Vital Signs Noted Stable on ventilator Chronically ill appearing HEENT: moist mm, trach Chest: Occasional rhonchi, BS equal bilaterally Heart: HS1, HS2, RRR Abdomen: SNTND G tube Extremities: No edema, well perfused RENAL DIALYSIS RN: Non focal, sedated Impression: COVID-19 virus infection Pneumonia Respiratory failure on ventilator, wean as tolerated once off pressors CKD - on HD Hypotension on pressors previously Cardiomegaly Lymphopenia Elevated AST COPD Chronic Kidney Disease - HD H/o Hypertension Worsening anemia Plan: SP Tracheostomy / G tube Antibiotics per ID HD Pressors PRN ACVC - wean as tolerated 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 Medications 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 Monitor cultures/viral studies PPX Hemodialysis per Renal Psychiatry following Laboratory Tests Noted: CXR: Hypoventilatory exam, interstitial changes, cardiomegaly, improving infiltrates Subjective ROS Limited/Unobtainable: No Constitutional: Denies: fever Respiratory: Reports: dry cough, shortness of breath Gastrointestinal/Abdominal: Reports: diarrhea, other - colace was stopped Psychiatric: Reports: other - refuses labs Allergies: Coded Allergies: No Known Allergies (Unverified , 05/28/19) All Systems: reviewed and negative except above Labs noted Critical Care - Objective Last 24 Hour Vital Signs Date Time Temp Pulse Resp B/P (MAP) Pulse Ox O2 Delivery O2 Flow Rate FiO2 07/25/19 09:00 76 30 114/60 (78) 100 07/25/19 08:30 73 21 111/57 (75) 100 07/25/19 08:00 35 07/25/19 08:00 99.1 73 27 109/53 (71) 100 07/25/19 08:00 Mechanical Ventilator 07/25/19 07:30 76 27 116/62 (80) 100 07/25/19 07:24 100 07/25/19 07:20 74 27 100 Mechanical Ventilator 30 77 26 30 07/25/19 07:00 77 23 116/66 (83) 100 07/25/19 07:00 116/66 07/25/19 07:00 26 116/66 Mechanical Ventilator 35 07/25/19 06:45 67 29 88/52 (64) 100 07/25/19 06:30 68 29 93/51 (65) 100 07/25/19 06:15 69 34 89/52 (64) 100 07/25/19 06:00 68 24 07/25/19 06:00 98/52 07/25/19 06:00 26 98/52 Mechanical Ventilator 35 07/25/19 06:00 73 26 98/52 (67) 100 07/25/19 05:45 75 27 115/62 (79) 100 07/25/19 05:30 71 27 100/53 (69) 100 07/25/19 05:15 71 27 113/61 (78) 100 07/25/19 05:00 95/53 07/25/19 05:00 28 95/53 Mechanical Ventilator 35 07/25/19 05:00 71 27 95/53 (67) 100 07/25/19 04:45 76 24 118/61 (80) 100 07/25/19 04:30 78 22 104/55 (71) 100 07/25/19 04:15 77 31 88/51 (63) 100 07/25/19 04:06 76 26 90/52 (65) 100 07/25/19 04:00 98.4 77 26 80/46 (57) 100 07/25/19 04:00 35 07/25/19 04:00 84/46 07/25/19 04:00 29 84/46 Mechanical Ventilator 35 07/25/19 04:00 Mechanical Ventilator 07/25/19 03:45 81 26 108/53 (71) 100 07/25/19 03:30 78 24 90/51 (64) 100 07/25/19 03:30 80 26 100 Mechanical Ventilator 30 82 27 30 07/25/19 03:19 79 07/25/19 03:15 80 26 93/51 (65) 100 07/25/19 03:00 104/61 07/25/19 03:00 26 104/61 Mechanical Ventilator 35 07/25/19 03:00 86 29 104/61 (75) 100 07/25/19 02:45 88 26 117/55 (75) 95 07/25/19 02:30 77 29 117/63 (81) 100 07/25/19 02:15 76 26 104/56 (72) 100 07/25/19 02:00 79 28 109/55 (73) 100 07/25/19 02:00 109/55 07/25/19 02:00 27 109/55 Mechanical Ventilator 35 07/25/19 01:45 74 29 125/73 (90) 100 07/25/19 01:30 75 24 129/67 (87) 100 07/25/19 01:29 27 133/85 Mechanical Ventilator 35 07/25/19 01:15 69 33 104/59 (74) 100 07/25/19 01:00 70 29 98/58 (71) 100 07/25/19 01:00 98/58 07/25/19 01:00 30 98/58 Mechanical Ventilator 35 07/25/19 00:45 71 27 99/54 (69) 100 07/25/19 00:30 72 27 109/62 (78) 100 07/25/19 00:15 70 29 114/65 (81) 100 07/25/19 00:00 114/65 07/25/19 00:00 27 114/65 Mechanical Ventilator 35 07/25/19 00:00 100.1 73 25 92/57 (69) 100 07/25/19 00:00 Mechanical Ventilator 07/24/19 23:45 76 30 127/60 (82) 100 07/24/19 23:30 75 27 100 Mechanical Ventilator 30 76 28 30 07/24/19 23:30 73 26 104/53 (70) 100 07/24/19 23:15 76 29 123/59 (80) 100 07/24/19 23:05 79 07/24/19 23:00 123/59 07/24/19 23:00 26 123/59 Mechanical Ventilator 35 07/24/19 23:00 75 26 122/59 (80) 100 07/24/19 22:45 70 27 129/62 (84) 100 07/24/19 22:30 74 28 123/58 (79) 100 07/24/19 22:15 77 26 113/54 (73) 100 07/24/19 22:00 113/54 07/24/19 22:00 26 113/54 Mechanical Ventilator 35 07/24/19 22:00 75 25 123/59 (80) 100 07/24/19 21:45 76 28 113/55 (74) 100 07/24/19 21:30 76 26 137/62 (87) 100 07/24/19 21:15 73 29 114/56 (75) 100 07/24/19 21:00 76 23 132/60 (84) 100 07/24/19 21:00 114/56 07/24/19 21:00 26 114/56 Mechanical Ventilator 35 07/24/19 20:45 74 24 143/64 (90) 100 07/24/19 20:30 70 28 113/56 (75) 100 07/24/19 20:15 73 25 110/57 (74) 100 07/24/19 20:00 Mechanical Ventilator 07/24/19 20:00 110/57 07/24/19 20:00 25 110/57 Mechanical Ventilator 35 07/24/19 20:00 35 07/24/19 20:00 99.5 74 26 120/62 (81) 100 07/24/19 19:45 73 30 113/63 (80) 100 07/24/19 19:41 75 07/24/19 19:30 76 27 100 Mechanical Ventilator 30 78 27 30 07/24/19 19:30 77 24 110/61 (77) 100 07/24/19 19:15 71 26 100/54 (69) 100 07/24/19 19:00 100/54 07/24/19 19:00 26 100/54 Mechanical Ventilator 35 07/24/19 19:00 77 26 108/56 (73) 100 07/24/19 18:30 74 27 101/58 (72) 100 07/24/19 18:00 78 23 125/64 (84) 100 07/24/19 18:00 111/61 07/24/19 18:00 24 111/61 Mechanical Ventilator 35 07/24/19 17:41 112/64 07/24/19 17:30 78 23 119/68 (85) 100 07/24/19 17:00 111/60 07/24/19 17:00 26 111/60 Mechanical Ventilator 35 07/24/19 17:00 74 29 98/57 (71) 100 07/24/19 16:30 75 26 92/52 (65) 100 07/24/19 16:00 75 07/24/19 16:00 35 07/24/19 16:00 Mechanical Ventilator 07/24/19 16:00 93/53 07/24/19 16:00 26 93/53 Mechanical Ventilator 35 07/24/19 16:00 98.4 79 27 110/59 (76) 100 07/24/19 15:30 83 12 117/84 (95) 94 07/24/19 15:12 84 28 100 Mechanical Ventilator 30 75 26 30 07/24/19 15:00 73 26 103/55 (71) 100 07/24/19 15:00 117/61 07/24/19 15:00 26 117/61 Mechanical Ventilator 35 07/24/19 14:30 73 25 113/54 (73) 100 07/24/19 14:00 101/53 07/24/19 14:00 29 101/53 Mechanical Ventilator 35 07/24/19 14:00 73 27 101/53 (69) 100 07/24/19 13:30 74 26 100/62 (75) 100 07/24/19 13:00 72 28 101/62 (75) 100 07/24/19 13:00 100/62 07/24/19 13:00 27 100/62 Mechanical Ventilator 35 07/24/19 12:30 75 26 104/60 (75) 100 07/24/19 12:00 98.4 77 28 102/53 (69) 100 07/24/19 12:00 74 07/24/19 12:00 89/51 07/24/19 12:00 26 89/51 Mechanical Ventilator 35 07/24/19 12:00 35 07/24/19 12:00 Mechanical Ventilator 07/24/19 11:30 78 26 93/55 (68) 100 07/24/19 11:09 71 26 100 Mechanical Ventilator 30 70 28 30 07/24/19 11:00 92/54 07/24/19 11:00 26 92/54 Mechanical Ventilator 40 07/24/19 11:00 75 24 142/70 (94) 100 07/24/19 10:45 142/70 07/24/19 10:30 74 29 136/69 (91) 100 07/24/19 10:30 128/69 07/24/19 10:15 136/69 Accucheck: 203 Critical Care - Subjective ROS Limited/Unobtainable: No Condition: critical FI02: 35 Vent Support Breath Rate: 26 Vent Support Mode: AC Vent Tidal Volume: 500 Sputum Amount: Small PEEP: 5.0 PIP: 28 Tube Feeding Amount: 35 I&O: Intake and Output 07/24/19 07/25/19 19:00 07:00 Intake Total 671.95 ml 607.2726 ml Balance 671.95 ml 607.2726 ml Free Water 60 ml IV Total 191.95 ml 187.2726 ml Tube Feeding 420 ml 420 ml # Bowel Movements 2 1 ET-Tube: 7.5 ET Position: 24 Arturo Mckeon MD Jul 25, 2019 10:12
--- NOTE | 2019-07-25 10:31 | Surgery Progress Note ---
Surgery Progress Note Subjective Procedure Performed Right femoral temporary hemodialysis catheter removal Additional Comments levo 3 fi02 30% peep 5 Objective Last 24 Hour Vital Signs Date Time Temp Pulse Resp B/P (MAP) Pulse Ox O2 Delivery O2 Flow Rate FiO2 07/25/19 09:00 76 30 114/60 (78) 100 07/25/19 08:30 73 21 111/57 (75) 100 07/25/19 08:00 35 07/25/19 08:00 99.1 73 27 109/53 (71) 100 07/25/19 08:00 Mechanical Ventilator 07/25/19 07:30 76 27 116/62 (80) 100 07/25/19 07:24 100 07/25/19 07:20 74 27 100 Mechanical Ventilator 30 77 26 30 07/25/19 07:00 77 23 116/66 (83) 100 07/25/19 07:00 116/66 07/25/19 07:00 26 116/66 Mechanical Ventilator 35 07/25/19 06:45 67 29 88/52 (64) 100 07/25/19 06:30 68 29 93/51 (65) 100 07/25/19 06:15 69 34 89/52 (64) 100 07/25/19 06:00 68 24 07/25/19 06:00 98/52 07/25/19 06:00 26 98/52 Mechanical Ventilator 35 07/25/19 06:00 73 26 98/52 (67) 100 07/25/19 05:45 75 27 115/62 (79) 100 07/25/19 05:30 71 27 100/53 (69) 100 07/25/19 05:15 71 27 113/61 (78) 100 07/25/19 05:00 95/53 07/25/19 05:00 28 95/53 Mechanical Ventilator 35 07/25/19 05:00 71 27 95/53 (67) 100 07/25/19 04:45 76 24 118/61 (80) 100 07/25/19 04:30 78 22 104/55 (71) 100 07/25/19 04:15 77 31 88/51 (63) 100 07/25/19 04:06 76 26 90/52 (65) 100 07/25/19 04:00 98.4 77 26 80/46 (57) 100 07/25/19 04:00 35 07/25/19 04:00 84/46 07/25/19 04:00 29 84/46 Mechanical Ventilator 35 07/25/19 04:00 Mechanical Ventilator 07/25/19 03:45 81 26 108/53 (71) 100 07/25/19 03:30 78 24 90/51 (64) 100 07/25/19 03:30 80 26 100 Mechanical Ventilator 30 82 27 30 07/25/19 03:19 79 07/25/19 03:15 80 26 93/51 (65) 100 07/25/19 03:00 104/61 07/25/19 03:00 26 104/61 Mechanical Ventilator 35 07/25/19 03:00 86 29 104/61 (75) 100 07/25/19 02:45 88 26 117/55 (75) 95 07/25/19 02:30 77 29 117/63 (81) 100 07/25/19 02:15 76 26 104/56 (72) 100 07/25/19 02:00 79 28 109/55 (73) 100 07/25/19 02:00 109/55 07/25/19 02:00 27 109/55 Mechanical Ventilator 35 07/25/19 01:45 74 29 125/73 (90) 100 07/25/19 01:30 75 24 129/67 (87) 100 07/25/19 01:29 27 133/85 Mechanical Ventilator 35 07/25/19 01:15 69 33 104/59 (74) 100 07/25/19 01:00 70 29 98/58 (71) 100 07/25/19 01:00 98/58 07/25/19 01:00 30 98/58 Mechanical Ventilator 35 07/25/19 00:45 71 27 99/54 (69) 100 07/25/19 00:30 72 27 109/62 (78) 100 07/25/19 00:15 70 29 114/65 (81) 100 07/25/19 00:00 114/65 07/25/19 00:00 27 114/65 Mechanical Ventilator 35 07/25/19 00:00 100.1 73 25 92/57 (69) 100 07/25/19 00:00 Mechanical Ventilator 07/24/19 23:45 76 30 127/60 (82) 100 07/24/19 23:30 75 27 100 Mechanical Ventilator 30 76 28 30 07/24/19 23:30 73 26 104/53 (70) 100 07/24/19 23:15 76 29 123/59 (80) 100 07/24/19 23:05 79 07/24/19 23:00 123/59 07/24/19 23:00 26 123/59 Mechanical Ventilator 35 07/24/19 23:00 75 26 122/59 (80) 100 07/24/19 22:45 70 27 129/62 (84) 100 07/24/19 22:30 74 28 123/58 (79) 100 07/24/19 22:15 77 26 113/54 (73) 100 07/24/19 22:00 113/54 07/24/19 22:00 26 113/54 Mechanical Ventilator 35 07/24/19 22:00 75 25 123/59 (80) 100 07/24/19 21:45 76 28 113/55 (74) 100 07/24/19 21:30 76 26 137/62 (87) 100 07/24/19 21:15 73 29 114/56 (75) 100 07/24/19 21:00 76 23 132/60 (84) 100 07/24/19 21:00 114/56 07/24/19 21:00 26 114/56 Mechanical Ventilator 35 07/24/19 20:45 74 24 143/64 (90) 100 07/24/19 20:30 70 28 113/56 (75) 100 07/24/19 20:15 73 25 110/57 (74) 100 07/24/19 20:00 Mechanical Ventilator 07/24/19 20:00 110/57 07/24/19 20:00 25 110/57 Mechanical Ventilator 35 07/24/19 20:00 35 07/24/19 20:00 99.5 74 26 120/62 (81) 100 07/24/19 19:45 73 30 113/63 (80) 100 07/24/19 19:41 75 07/24/19 19:30 76 27 100 Mechanical Ventilator 30 78 27 30 07/24/19 19:30 77 24 110/61 (77) 100 07/24/19 19:15 71 26 100/54 (69) 100 07/24/19 19:00 100/54 07/24/19 19:00 26 100/54 Mechanical Ventilator 35 07/24/19 19:00 77 26 108/56 (73) 100 07/24/19 18:30 74 27 101/58 (72) 100 07/24/19 18:00 78 23 125/64 (84) 100 07/24/19 18:00 111/61 07/24/19 18:00 24 111/61 Mechanical Ventilator 35 07/24/19 17:41 112/64 07/24/19 17:30 78 23 119/68 (85) 100 07/24/19 17:00 111/60 07/24/19 17:00 26 111/60 Mechanical Ventilator 35 07/24/19 17:00 74 29 98/57 (71) 100 07/24/19 16:30 75 26 92/52 (65) 100 07/24/19 16:00 75 07/24/19 16:00 35 07/24/19 16:00 Mechanical Ventilator 07/24/19 16:00 93/53 07/24/19 16:00 26 93/53 Mechanical Ventilator 35 07/24/19 16:00 98.4 79 27 110/59 (76) 100 07/24/19 15:30 83 12 117/84 (95) 94 07/24/19 15:12 84 28 100 Mechanical Ventilator 30 75 26 30 07/24/19 15:00 73 26 103/55 (71) 100 07/24/19 15:00 117/61 07/24/19 15:00 26 117/61 Mechanical Ventilator 35 07/24/19 14:30 73 25 113/54 (73) 100 07/24/19 14:00 101/53 07/24/19 14:00 29 101/53 Mechanical Ventilator 35 07/24/19 14:00 73 27 101/53 (69) 100 07/24/19 13:30 74 26 100/62 (75) 100 07/24/19 13:00 72 28 101/62 (75) 100 07/24/19 13:00 100/62 07/24/19 13:00 27 100/62 Mechanical Ventilator 35 07/24/19 12:30 75 26 104/60 (75) 100 07/24/19 12:00 98.4 77 28 102/53 (69) 100 07/24/19 12:00 74 07/24/19 12:00 89/51 07/24/19 12:00 26 89/51 Mechanical Ventilator 35 07/24/19 12:00 35 07/24/19 12:00 Mechanical Ventilator 07/24/19 11:30 78 26 93/55 (68) 100 07/24/19 11:09 71 26 100 Mechanical Ventilator 30 70 28 30 07/24/19 11:00 92/54 07/24/19 11:00 26 92/54 Mechanical Ventilator 40 07/24/19 11:00 75 24 142/70 (94) 100 07/24/19 10:45 142/70 I&O Intake and Output 07/24/19 07/25/19 19:00 07:00 Intake Total 671.95 ml 607.2726 ml Balance 671.95 ml 607.2726 ml Free Water 60 ml IV Total 191.95 ml 187.2726 ml Tube Feeding 420 ml 420 ml # Bowel Movements 2 1 Dressing: other Wound: other Drains: other Cardiovascular: RSR Respiratory: decreased breath sounds Abdomen: soft, present bowel sounds, non-distended Extremities: no cyanosis, other Laboratory Tests Test 07/25/19 04:00 White Blood Count 16.8 K/UL (4.8-10.8) H Red Blood Count 3.24 M/UL (4.70-6.10) L Hemoglobin 9.4 G/DL (14.2-18.0) L Hematocrit 31.9 % (42.0-52.0) L Mean Corpuscular Volume 98 FL (80-99) Mean Corpuscular Hemoglobin 28.9 PG (27.0-31.0) Mean Corpuscular Hemoglobin Concent 29.4 G/DL (32.0-36.0) L Red Cell Distribution Width 18.6 % (11.6-14.8) H Platelet Count 271 K/UL (150-450) Mean Platelet Volume 8.4 FL (6.5-10.1) Neutrophils (%) (Auto) 83.1 % (45.0-75.0) H Lymphocytes (%) (Auto) 8.0 % (20.0-45.0) L Monocytes (%) (Auto) 6.1 % (1.0-10.0) Eosinophils (%) (Auto) 2.2 % (0.0-3.0) Basophils (%) (Auto) 0.6 % (0.0-2.0) Sodium Level 140 MMOL/L (136-145) Potassium Level 3.7 MMOL/L (3.5-5.1) Chloride Level 98 MMOL/L (98-107) Carbon Dioxide Level 26 MMOL/L (21-32) Anion Gap 16 mmol/L (5-15) H Blood Urea Nitrogen 70 mg/dL (7-18) H Creatinine 8.3 MG/DL (0.55-1.30) H Estimat Glomerular Filtration Rate 6.5 mL/min (>60) Glucose Level 175 MG/DL (74-106) H Calcium Level 9.4 MG/DL (8.5-10.1) Phosphorus Level 2.9 MG/DL (2.5-4.9) Total Bilirubin 0.5 MG/DL (0.2-1.0) Aspartate Amino Transf (AST/SGOT) 15 U/L (15-37) Alanine Aminotransferase (ALT/SGPT) 6 U/L (12-78) L Alkaline Phosphatase 134 U/L (46-116) H Total Protein 8.0 G/DL (6.4-8.2) Albumin 2.7 G/DL (3.4-5.0) L Globulin 5.3 g/dL Albumin/Globulin Ratio 0.5 (1.0-2.7) L Plan Problems: (1) Suspected COVID-19 virus infection (2) HTN (hypertension) (3) CASSANDRA (acute kidney injury) Assessment & Plan: Needs urgent HD needs access patient okay and consented see note will follow with recs new line placed discussed with team and nephrology HD line functional when checked has TPA now please use appropriately Cathflo used again this flow during dialysis on 430 was low. Will monitor may need line change 5/4 plan for HD as per renal may need to take fluid off with HD edema anasarca dressings saturated and changed will monitor cont with HD IJ left line placed for HD given extent of prior line in place. leukocytosis blood cx negative may need to change out line new line okay HD going well (4) Anemia in chronic kidney disease (CKD) (5) Anemia (6) Renal failure (7) Suspected COVID-19 virus infection Assessment & Plan: Pt deconditioned and despite all skin preventions Pt noted to have developed several pressure injuries. . Stable dry eschar noted to clefts of R and L ears. No erythema noted . DTPI noted to L trochanter. Base of injury is maroon in colour with marginal erythema along borders. Partially opened DTPI Sacrum, R and L Buttocks. Base of wound is maroon with two small open wounds L sacrum and L buttocks. Pt has an APM/MOMO Mattress overlay and is being positioned with pillows as per tolerance and within protocols. worsening despite medical efforts will cont to provide therapy Tx.Plan: Apply Cavilon Skin Barrier to both ears Daily and prn. Apply Moisture Barrier Paste to Sacrum,R and L Buttocks. Cover with Optifoam drsgs. Change every 3 days and PRN. Apply Cavilon Skin Barrier to R and L trochanter. Cover each site with Optifoam drsgs.Change every 7 days and PRN. Apply Cavilon Skin Barrier to both heels. Cover each heel with Optifoam drsg. Change every 7 days and prn. Off-load heels with pillow. Reposition at least every 2hours or as tolerated. APM/MOMO Mattress overlay. (8) COVID-19 Assessment & Plan: COVID + c diff negative febrile leukocytosis renal insufficiency see above cont resp care Rx as per ID worsening on vent support now cxr noted on pressors prognosis guarded repeat covid ++ weaning vent and pressors off slowly showing improvement slowly recovering will need trach as unable to wean vent safely called and spoke with country conservatorship. consent obtained s/p trach pending peg worsening on levo max (9) Sepsis Assessment & Plan: worsening leukocytosis febrile on pressors discussed with ID. lines evaluated and clean. he is septic on pressors and needs central access in difficult venous access patient blood cultures negative will monitor Yaniv Mast Jul 25, 2019 10:31
--- NOTE | 2019-07-25 12:17 | Infectious Diseases Prog Note ---
Assessment/Plan Assessment/Plan IMPRESSION: 1. COVID19 pneumonia Positive: 05/27, 05/31 , 06/05, 06/09 ,06/17, 06/19, 06/23, 06/27, 07/03, 07/15 2. MRSA carrier. 3. Chronic kidney disease , end-stage renal disease. 4. COPD. 5. Hypertension. 6. Anemia. 7. Hypothyroidism. 8. Hyperlipidemia. 9. Major depression. 10. Leukocytosis 11. Hypotension 12. Hepatitis C 13. Hyperuricemia 14. Diarrhea 15. septic shock 16. Leukocytosis improving 17. Pneumonia with Staph aureus ( MRSA) 18. Bacteremia with Staph coagulase negative RECOMMENDATIONS: Continue IV Vancomycin Case was D/W RN Subjective ROS Limited/Unobtainable: Yes Constitutional: Reports: fever, other - Wc=577.1 Allergies: Coded Allergies: No Known Allergies (Unverified , 05/28/19) Objective Vital Signs Last 24 Hour Vital Signs Date Time Temp Pulse Resp B/P (MAP) Pulse Ox O2 Delivery O2 Flow Rate FiO2 07/25/19 10:49 80 26 100 Mechanical Ventilator 30 89 26 30 07/25/19 09:00 76 30 114/60 (78) 100 07/25/19 08:30 73 21 111/57 (75) 100 07/25/19 08:00 35 07/25/19 08:00 99.1 73 27 109/53 (71) 100 07/25/19 08:00 Mechanical Ventilator 07/25/19 07:30 76 27 116/62 (80) 100 07/25/19 07:24 100 07/25/19 07:20 74 27 100 Mechanical Ventilator 30 77 26 30 07/25/19 07:00 77 23 116/66 (83) 100 07/25/19 07:00 116/66 07/25/19 07:00 26 116/66 Mechanical Ventilator 35 07/25/19 06:45 67 29 88/52 (64) 100 07/25/19 06:30 68 29 93/51 (65) 100 07/25/19 06:15 69 34 89/52 (64) 100 07/25/19 06:00 68 24 07/25/19 06:00 98/52 07/25/19 06:00 26 98/52 Mechanical Ventilator 35 07/25/19 06:00 73 26 98/52 (67) 100 07/25/19 05:45 75 27 115/62 (79) 100 07/25/19 05:30 71 27 100/53 (69) 100 07/25/19 05:15 71 27 113/61 (78) 100 07/25/19 05:00 95/53 07/25/19 05:00 28 95/53 Mechanical Ventilator 35 07/25/19 05:00 71 27 95/53 (67) 100 07/25/19 04:45 76 24 118/61 (80) 100 07/25/19 04:30 78 22 104/55 (71) 100 07/25/19 04:15 77 31 88/51 (63) 100 07/25/19 04:06 76 26 90/52 (65) 100 07/25/19 04:00 98.4 77 26 80/46 (57) 100 07/25/19 04:00 35 07/25/19 04:00 84/46 07/25/19 04:00 29 84/46 Mechanical Ventilator 35 07/25/19 04:00 Mechanical Ventilator 07/25/19 03:45 81 26 108/53 (71) 100 07/25/19 03:30 78 24 90/51 (64) 100 07/25/19 03:30 80 26 100 Mechanical Ventilator 30 82 27 30 07/25/19 03:19 79 07/25/19 03:15 80 26 93/51 (65) 100 07/25/19 03:00 104/61 07/25/19 03:00 26 104/61 Mechanical Ventilator 35 07/25/19 03:00 86 29 104/61 (75) 100 07/25/19 02:45 88 26 117/55 (75) 95 07/25/19 02:30 77 29 117/63 (81) 100 07/25/19 02:15 76 26 104/56 (72) 100 07/25/19 02:00 79 28 109/55 (73) 100 07/25/19 02:00 109/55 07/25/19 02:00 27 109/55 Mechanical Ventilator 35 07/25/19 01:45 74 29 125/73 (90) 100 07/25/19 01:30 75 24 129/67 (87) 100 07/25/19 01:29 27 133/85 Mechanical Ventilator 35 6/14/20 01:15 69 33 104/59 (74) 100 07/25/19 01:00 70 29 98/58 (71) 100 07/25/19 01:00 98/58 07/25/19 01:00 30 98/58 Mechanical Ventilator 35 07/25/19 00:45 71 27 99/54 (69) 100 07/25/19 00:30 72 27 109/62 (78) 100 07/25/19 00:15 70 29 114/65 (81) 100 07/25/19 00:00 114/65 07/25/19 00:00 27 114/65 Mechanical Ventilator 35 07/25/19 00:00 100.1 73 25 92/57 (69) 100 07/25/19 00:00 Mechanical Ventilator 07/24/19 23:45 76 30 127/60 (82) 100 07/24/19 23:30 75 27 100 Mechanical Ventilator 30 76 28 30 07/24/19 23:30 73 26 104/53 (70) 100 07/24/19 23:15 76 29 123/59 (80) 100 07/24/19 23:05 79 07/24/19 23:00 123/59 07/24/19 23:00 26 123/59 Mechanical Ventilator 35 07/24/19 23:00 75 26 122/59 (80) 100 07/24/19 22:45 70 27 129/62 (84) 100 07/24/19 22:30 74 28 123/58 (79) 100 07/24/19 22:15 77 26 113/54 (73) 100 07/24/19 22:00 113/54 07/24/19 22:00 26 113/54 Mechanical Ventilator 35 07/24/19 22:00 75 25 123/59 (80) 100 07/24/19 21:45 76 28 113/55 (74) 100 07/24/19 21:30 76 26 137/62 (87) 100 07/24/19 21:15 73 29 114/56 (75) 100 07/24/19 21:00 76 23 132/60 (84) 100 07/24/19 21:00 114/56 07/24/19 21:00 26 114/56 Mechanical Ventilator 35 07/24/19 20:45 74 24 143/64 (90) 100 07/24/19 20:30 70 28 113/56 (75) 100 07/24/19 20:15 73 25 110/57 (74) 100 07/24/19 20:00 Mechanical Ventilator 07/24/19 20:00 110/57 07/24/19 20:00 25 110/57 Mechanical Ventilator 35 07/24/19 20:00 35 07/24/19 20:00 99.5 74 26 120/62 (81) 100 07/24/19 19:45 73 30 113/63 (80) 100 07/24/19 19:41 75 07/24/19 19:30 76 27 100 Mechanical Ventilator 30 78 27 30 07/24/19 19:30 77 24 110/61 (77) 100 07/24/19 19:15 71 26 100/54 (69) 100 07/24/19 19:00 100/54 07/24/19 19:00 26 100/54 Mechanical Ventilator 35 07/24/19 19:00 77 26 108/56 (73) 100 07/24/19 18:30 74 27 101/58 (72) 100 07/24/19 18:00 78 23 125/64 (84) 100 07/24/19 18:00 111/61 07/24/19 18:00 24 111/61 Mechanical Ventilator 35 07/24/19 17:41 112/64 07/24/19 17:30 78 23 119/68 (85) 100 07/24/19 17:00 111/60 07/24/19 17:00 26 111/60 Mechanical Ventilator 35 07/24/19 17:00 74 29 98/57 (71) 100 07/24/19 16:30 75 26 92/52 (65) 100 07/24/19 16:00 75 07/24/19 16:00 35 07/24/19 16:00 Mechanical Ventilator 07/24/19 16:00 93/53 07/24/19 16:00 26 93/53 Mechanical Ventilator 35 07/24/19 16:00 98.4 79 27 110/59 (76) 100 07/24/19 15:30 83 12 117/84 (95) 94 07/24/19 15:12 84 28 100 Mechanical Ventilator 30 75 26 30 07/24/19 15:00 73 26 103/55 (71) 100 07/24/19 15:00 117/61 07/24/19 15:00 26 117/61 Mechanical Ventilator 35 07/24/19 14:30 73 25 113/54 (73) 100 07/24/19 14:00 101/53 07/24/19 14:00 29 101/53 Mechanical Ventilator 35 07/24/19 14:00 73 27 101/53 (69) 100 07/24/19 13:30 74 26 100/62 (75) 100 07/24/19 13:00 72 28 101/62 (75) 100 07/24/19 13:00 100/62 07/24/19 13:00 27 100/62 Mechanical Ventilator 35 07/24/19 12:30 75 26 104/60 (75) 100 Height (Feet): 6 Height (Inches): 1.00 Weight (Pounds): 187 General Appearance: no acute distress HEENT: status post trach Respiratory/Chest: other - on ventilator, FIo2=35% Cardiovascular: normal rate, other - HD & central line Abdomen: soft, non tender, other - GT Extremities: no edema Neurologic/Psychiatric: disoriented Laboratory Tests Test 07/25/19 04:00 White Blood Count 16.8 K/UL (4.8-10.8) H Red Blood Count 3.24 M/UL (4.70-6.10) L Hemoglobin 9.4 G/DL (14.2-18.0) L Hematocrit 31.9 % (42.0-52.0) L Mean Corpuscular Volume 98 FL (80-99) Mean Corpuscular Hemoglobin 28.9 PG (27.0-31.0) Mean Corpuscular Hemoglobin Concent 29.4 G/DL (32.0-36.0) L Red Cell Distribution Width 18.6 % (11.6-14.8) H Platelet Count 271 K/UL (150-450) Mean Platelet Volume 8.4 FL (6.5-10.1) Neutrophils (%) (Auto) 83.1 % (45.0-75.0) H Lymphocytes (%) (Auto) 8.0 % (20.0-45.0) L Monocytes (%) (Auto) 6.1 % (1.0-10.0) Eosinophils (%) (Auto) 2.2 % (0.0-3.0) Basophils (%) (Auto) 0.6 % (0.0-2.0) Sodium Level 140 MMOL/L (136-145) Potassium Level 3.7 MMOL/L (3.5-5.1) Chloride Level 98 MMOL/L (98-107) Carbon Dioxide Level 26 MMOL/L (21-32) Anion Gap 16 mmol/L (5-15) H Blood Urea Nitrogen 70 mg/dL (7-18) H Creatinine 8.3 MG/DL (0.55-1.30) H Estimat Glomerular Filtration Rate 6.5 mL/min (>60) Glucose Level 175 MG/DL (74-106) H Calcium Level 9.4 MG/DL (8.5-10.1) Phosphorus Level 2.9 MG/DL (2.5-4.9) Total Bilirubin 0.5 MG/DL (0.2-1.0) Aspartate Amino Transf (AST/SGOT) 15 U/L (15-37) Alanine Aminotransferase (ALT/SGPT) 6 U/L (12-78) L Alkaline Phosphatase 134 U/L (46-116) H Total Protein 8.0 G/DL (6.4-8.2) Albumin 2.7 G/DL (3.4-5.0) L Globulin 5.3 g/dL Albumin/Globulin Ratio 0.5 (1.0-2.7) L Current Medications Medications (Trade) Dose Ordered Sig/Anthony Route PRN Reason Start Time Stop Time Status Last Admin Dose Admin Acetaminophen (Tylenol) 650 mg Q4H PRN NG For Pain 07/11/19 08:00 08/10/19 07:59 07/25/19 01:30 Albuterol Sulfate (Proventil MDI) 2 puff Q4HRT INH 06/06/19 23:00 08/30/19 18:59 07/25/19 10:55 Chlorhexidine Gluconate (Michelle-Hex 2%) 1 applic DAILY@2000 TOPIC 06/07/19 20:00 09/05/19 19:59 07/24/19 21:33 Dextrose (Dextrose 50%) 25 ml Q30M PRN IV Hypoglycemia 06/20/19 19:30 09/18/19 19:29 Dextrose (Dextrose 50%) 50 ml Q30M PRN IV Hypoglycemia 06/20/19 19:30 09/18/19 19:29 Dopamine HCl/ Dextrose 250 ml @ 0 mls/hr Q24H PRN IV For hypotension 06/13/19 08:15 09/11/19 08:14 07/17/19 08:46 Enoxaparin Sodium (Lovenox) 30 mg DAILY SUBQ 06/07/19 09:00 08/27/19 08:59 07/25/19 08:31 Epoetin Aftab (Epoetin Aftab(ESRD on dialysis)) 10,000 unit FRI- SUBQ 06/07/19 21:00 08/31/19 20:59 07/23/19 21:02 Fentanyl Citrate 250 ml @ 0 mls/hr Q24H IV 07/19/19 14:06 10/17/19 14:05 07/25/19 01:29 Haloperidol Lactate 5 mg/ Dextrose 56 ml @ 224 mls/hr Q6H PRN IVPB Agitation 07/11/19 15:00 08/25/19 14:59 07/15/19 02:36 Hydralazine HCl (Apresoline) 10 mg Q4H PRN IV Blood pressure over 160 systol 06/07/19 10:15 09/05/19 10:14 Insulin Aspart (NovoLOG) EVERY 6 HOURS SUBQ 06/21/19 00:00 09/19/19 00:00 07/25/19 11:43 Midodrine (Pro-Amatine) 10 mg Q8HR ORAL 07/17/19 14:00 10/15/19 10:29 07/25/19 05:51 Norepinephrine Bitartrate 8 mg/ Sodium Chloride 250 ml @ 0 mls/hr Q24H IV 07/23/19 16:15 08/22/19 16:14 07/24/19 17:41 Sevelamer Carbonate (Renvela) 2,400 mg Q6HR NG 07/14/19 12:00 10/12/19 13:59 07/25/19 11:30 Vancomycin HCl ([facility] pharmacy to dose) 1 ea DAILY PRN MISC Per rx protocol 07/20/19 10:45 08/19/19 10:44 Ted Leyva MD Jul 25, 2019 12:17
--- NOTE | 2019-07-25 13:55 | Hematology/Onc Progress Note ---
Assessment/Plan Assessment/Plan Assessment and Recs: # Anemia of chronic disease, likely related ot underlying kidney disease has COIVD19++++++ --> hgb trend 9-->8-->7.3-->7.9-->6.8->9.5-->10->8.3-->7.7-->7.1-->8.9->8.8->7.7 -->8.1 ->7.9-->7.7 -->8.2-->8.1 -->7.9-->8.5 -->9->9.2-->9.5-->10.7 -->9.8--> 10.2-->11.8 -->11.9-->8.8 ->9.4 --> transfuse as needed, hgb goal >7 --> no evidence of hemolysis --> peripheral smear has been reviewed --> epogen started 3 x a week ==>> transfuse 06/08, 06/15 # Leukocytosis likely related to suspected COVID-19 virus infection --> completed plaquenil --> trend smear as needed --> wbc trend: 4-->11-->14.5-->21-->26-->21->24--.28-->23-->19-->16.2-->21--> 11.2 -->12.5-->12.3-->12.4-->18.5-->18.5-->17->13-->18.2-->22.2-->25-->17.4-->17 --> pulm is aware --> on abx cefepime/vanc->zosyn/vanc-->dom/vanc-->dom-->levaquin/cefepime,--> vanc --> pressors as needed --> 06/27 covid 19++ --> pressors as needed in icu # Thrombocytopenia/Lymphopenia --> likely related to covid19 --> plt 129k-->186k-->251-->285-->384 -->430-->539-->515-->447-->451-->404-->544 -->244 # Respiratory failure with covid19+ --> s/p vent/trach --> weaning # Possible Pneumonia --> abx completed --> 07/13 cxr: Improved right lung infiltrates. # Cardiomegaly # Transaminitis with Elevated AST # COPD # Chronic Kidney Disease --> per renal hd --> s/p right femoral cath 07/02 # Hypertension # Dvt ppx lovenox # peg Appreciate consultation and ernesto Rn Subjective Hematologic/Lymphatic: Denies: no symptoms, anemia, easy bleeding, easy bruising, adenopathy, other Allergies: Coded Allergies: No Known Allergies (Unverified , 05/28/19) All Systems: reviewed and negative except above Subjective 06/01 nv, extremely agitated, not allowing labs draws, no night sweats, cbc ordered 06/02 confused, restraints, on abx and plaquenil, hgb 7.9, nrb 15 L 06/03 is with nonrebreather, but not compliant, remains confused 06/05 no bleeding, labs noted, no major bleeding, otherwise comfortable 06/06 labs reviewed, no bleeding, meds noted, no night sweats, on levo and nonrebreather 06/07 labs noted, no bleeding, meds reviewed, no bleeding, wbc higher 06/08 to get 2 units prbc, no night sweats, meds reviewed 06/09 is on cefepime and vanc, labs noted, ernesto Rn, no bleeding 06/10 no major changes, labs reviewed, wbc 28k, on abx, cefepime 06/12 remains in icu, labs noted, no night sweats or bleeding 06/13 sluggish pupils, remains agitated, per psych, no bleding, on vent, wbc sitll high 06/14 still confused, remains on vent, with ng, running nepro, on pressors 06/15 icu, febrile, non verbal, hgb 7.1, blood pending, completed plaq 06/16 remains in the icu, nonverbal, plan for hd tomorrow, ernesto rn 06/17 in icu, on pressor, nonverbal, on abx, no bleeding 06/19 no bleeding, nonverbal in icu, hgb is 7.7 06/20 on zosyn, tube feeds, vent, labs noted, in icu, nv 06/21 gettng hd as per renal, in icu, nv, no bleeding, tfs 06/22 icu, cxr with slight improvement, cooling blanket, weaning today 06/23 wewaning, in icu, on vent, abx, and pressors as needed, labs noted 06/24 failed weaning, off abx, completed plaquenil, hgb 8.1 06/26 icu, weaning for this am, afebrile, hgb 8 06/27 in icu, remains comotose, weaning started on peep, no night sweats 06/28 weaning today, off abx, restraints, no distress, h/h stable 06/29 covid 19+, failed weaning, no blood transfusion needed 06/30 icu, on vent, labs reviewed, no distress 07/01 in icu, may need trach, remains on hd per renal, labs noted 07/02 s/p right fem cath, failed wean, no new orders, h/h stable 07/03 is somewhat more responsive, on abx, no bleeding, weaning and HD today 07/04 hd as per renal, weaning off vent, no bleeding today 07/05 obtunded, no bleding overnight, with hd for tomorrow noted, vanc 07/08 no events, remains with trach/vent, ernesto Rn, no bleeding, cbc is noted 07/09 no overnight events, peg for friday pending consent 07/10 off pressors, vent, restraints, labs reviewed 07/11 no acute events is on pressors, intubated, agitated still 07/12 is resting comfortably, no bleeding, emds reviewed and noted 07/13 icu, no events, trach, cxr reviewed, 07/14 is onv ent, tachypneic and tachycardic, labs noted 07/15 remains confused, intubated, ernesto Rn, no bleeding 07/17 icu, cxr improving infiltrates, levo gtt, airborne/contact isolation 07/18 is on broad spectrum abx, is on levaquin and cefepime, wbc 16 agitated 07/19 icu, levo gtt, cxr unchanged, tachy, hd thursday 07/20 sedated, safety restraints, labs reviewed 07/21 hd was done yesterday, lower pressor requirements, wbc is worse, on abx 07/22 icu, meds and labs reviewed, vent, no distress 07/24 on vent, in icu, labs noted, remains agitated, and confused Objective Objective Current Medications Medications (Trade) Dose Ordered Sig/Anthony Route PRN Reason Start Time Stop Time Status Last Admin Dose Admin Acetaminophen (Tylenol) 650 mg Q4H PRN NG For Pain 07/11/19 08:00 08/10/19 07:59 07/25/19 01:30 Albuterol Sulfate (Proventil MDI) 2 puff Q4HRT INH 06/06/19 23:00 08/30/19 18:59 07/25/19 10:55 Chlorhexidine Gluconate (Michelle-Hex 2%) 1 applic DAILY@2000 TOPIC 06/07/19 20:00 09/05/19 19:59 07/24/19 21:33 Dextrose (Dextrose 50%) 25 ml Q30M PRN IV Hypoglycemia 06/20/19 19:30 09/18/19 19:29 Dextrose (Dextrose 50%) 50 ml Q30M PRN IV Hypoglycemia 06/20/19 19:30 09/18/19 19:29 Dopamine HCl/ Dextrose 250 ml @ 0 mls/hr Q24H PRN IV For hypotension 06/13/19 08:15 09/11/19 08:14 07/17/19 08:46 Enoxaparin Sodium (Lovenox) 30 mg DAILY SUBQ 06/07/19 09:00 08/27/19 08:59 07/25/19 08:31 Epoetin Aftab (Epoetin Aftab(ESRD on dialysis)) 10,000 unit FRI-FRI-FRI SUBQ 06/07/19 21:00 08/31/19 20:59 07/23/19 21:02 Fentanyl Citrate 250 ml @ 0 mls/hr Q24H IV 07/19/19 14:06 10/17/19 14:05 07/25/19 01:29 Haloperidol Lactate 5 mg/ Dextrose 56 ml @ 224 mls/hr Q6H PRN IVPB Agitation 07/11/19 15:00 08/25/19 14:59 07/15/19 02:36 Hydralazine HCl (Apresoline) 10 mg Q4H PRN IV Blood pressure over 160 systol 06/07/19 10:15 09/05/19 10:14 Insulin Aspart (NovoLOG) EVERY 6 HOURS SUBQ 06/21/19 00:00 09/19/19 00:00 07/25/19 11:43 Midodrine (Pro-Amatine) 10 mg Q8HR ORAL 07/17/19 14:00 10/15/19 10:29 07/25/19 13:07 Norepinephrine Bitartrate 8 mg/ Sodium Chloride 250 ml @ 0 mls/hr Q24H IV 07/23/19 16:15 08/22/19 16:14 07/24/19 17:41 Sevelamer Carbonate (Renvela) 2,400 mg Q6HR NG 07/14/19 12:00 10/12/19 13:59 07/25/19 11:30 Vancomycin HCl (Vanco pharmacy to dose) 1 ea DAILY PRN MISC Per rx protocol 07/20/19 10:45 08/19/19 10:44 Last 24 Hour Vital Signs Date Time Temp Pulse Resp B/P (MAP) Pulse Ox O2 Delivery O2 Flow Rate FiO2 07/25/19 10:49 80 26 100 Mechanical Ventilator 30 89 26 30 07/25/19 09:00 76 30 114/60 (78) 100 07/25/19 08:30 73 21 111/57 (75) 100 07/25/19 08:00 35 07/25/19 08:00 99.1 73 27 109/53 (71) 100 07/25/19 08:00 Mechanical Ventilator 07/25/19 07:30 76 27 116/62 (80) 100 07/25/19 07:24 100 07/25/19 07:20 74 27 100 Mechanical Ventilator 30 77 26 30 07/25/19 07:00 77 23 116/66 (83) 100 07/25/19 07:00 116/66 07/25/19 07:00 26 116/66 Mechanical Ventilator 35 07/25/19 06:45 67 29 88/52 (64) 100 07/25/19 06:30 68 29 93/51 (65) 100 07/25/19 06:15 69 34 89/52 (64) 100 07/25/19 06:00 68 24 07/25/19 06:00 98/52 07/25/19 06:00 26 98/52 Mechanical Ventilator 35 07/25/19 06:00 73 26 98/52 (67) 100 07/25/19 05:45 75 27 115/62 (79) 100 07/25/19 05:30 71 27 100/53 (69) 100 07/25/19 05:15 71 27 113/61 (78) 100 07/25/19 05:00 95/53 07/25/19 05:00 28 95/53 Mechanical Ventilator 35 07/25/19 05:00 71 27 95/53 (67) 100 07/25/19 04:45 76 24 118/61 (80) 100 07/25/19 04:30 78 22 104/55 (71) 100 07/25/19 04:15 77 31 88/51 (63) 100 07/25/19 04:06 76 26 90/52 (65) 100 07/25/19 04:00 98.4 77 26 80/46 (57) 100 07/25/19 04:00 35 07/25/19 04:00 84/46 07/25/19 04:00 29 84/46 Mechanical Ventilator 35 07/25/19 04:00 Mechanical Ventilator 07/25/19 03:45 81 26 108/53 (71) 100 07/25/19 03:30 78 24 90/51 (64) 100 07/25/19 03:30 80 26 100 Mechanical Ventilator 30 82 27 30 07/25/19 03:19 79 07/25/19 03:15 80 26 93/51 (65) 100 07/25/19 03:00 104/61 07/25/19 03:00 26 104/61 Mechanical Ventilator 35 07/25/19 03:00 86 29 104/61 (75) 100 07/25/19 02:45 88 26 117/55 (75) 95 07/25/19 02:30 77 29 117/63 (81) 100 07/25/19 02:15 76 26 104/56 (72) 100 07/25/19 02:00 79 28 109/55 (73) 100 07/25/19 02:00 109/55 07/25/19 02:00 27 109/55 Mechanical Ventilator 35 07/25/19 01:45 74 29 125/73 (90) 100 07/25/19 01:30 75 24 129/67 (87) 100 07/25/19 01:29 27 133/85 Mechanical Ventilator 35 07/25/19 01:15 69 33 104/59 (74) 100 07/25/19 01:00 70 29 98/58 (71) 100 07/25/19 01:00 98/58 07/25/19 01:00 30 98/58 Mechanical Ventilator 35 07/25/19 00:45 71 27 99/54 (69) 100 07/25/19 00:30 72 27 109/62 (78) 100 07/25/19 00:15 70 29 114/65 (81) 100 07/25/19 00:00 114/65 07/25/19 00:00 27 114/65 Mechanical Ventilator 35 07/25/19 00:00 100.1 73 25 92/57 (69) 100 07/25/19 00:00 Mechanical Ventilator 07/24/19 23:45 76 30 127/60 (82) 100 07/24/19 23:30 75 27 100 Mechanical Ventilator 30 76 28 30 07/24/19 23:30 73 26 104/53 (70) 100 07/24/19 23:15 76 29 123/59 (80) 100 07/24/19 23:05 79 07/24/19 23:00 123/59 07/24/19 23:00 26 123/59 Mechanical Ventilator 35 07/24/19 23:00 75 26 122/59 (80) 100 07/24/19 22:45 70 27 129/62 (84) 100 07/24/19 22:30 74 28 123/58 (79) 100 07/24/19 22:15 77 26 113/54 (73) 100 07/24/19 22:00 113/54 07/24/19 22:00 26 113/54 Mechanical Ventilator 35 07/24/19 22:00 75 25 123/59 (80) 100 07/24/19 21:45 76 28 113/55 (74) 100 07/24/19 21:30 76 26 137/62 (87) 100 07/24/19 21:15 73 29 114/56 (75) 100 07/24/19 21:00 76 23 132/60 (84) 100 07/24/19 21:00 114/56 07/24/19 21:00 26 114/56 Mechanical Ventilator 35 07/24/19 20:45 74 24 143/64 (90) 100 07/24/19 20:30 70 28 113/56 (75) 100 07/24/19 20:15 73 25 110/57 (74) 100 07/24/19 20:00 Mechanical Ventilator 07/24/19 20:00 110/57 07/24/19 20:00 25 110/57 Mechanical Ventilator 35 07/24/19 20:00 35 07/24/19 20:00 99.5 74 26 120/62 (81) 100 07/24/19 19:45 73 30 113/63 (80) 100 07/24/19 19:41 75 07/24/19 19:30 76 27 100 Mechanical Ventilator 30 78 27 30 07/24/19 19:30 77 24 110/61 (77) 100 07/24/19 19:15 71 26 100/54 (69) 100 07/24/19 19:00 100/54 07/24/19 19:00 26 100/54 Mechanical Ventilator 35 07/24/19 19:00 77 26 108/56 (73) 100 07/24/19 18:30 74 27 101/58 (72) 100 07/24/19 18:00 78 23 125/64 (84) 100 07/24/19 18:00 111/61 07/24/19 18:00 24 111/61 Mechanical Ventilator 35 07/24/19 17:41 112/64 07/24/19 17:30 78 23 119/68 (85) 100 07/24/19 17:00 111/60 07/24/19 17:00 26 111/60 Mechanical Ventilator 35 07/24/19 17:00 74 29 98/57 (71) 100 07/24/19 16:30 75 26 92/52 (65) 100 07/24/19 16:00 75 07/24/19 16:00 35 07/24/19 16:00 Mechanical Ventilator 07/24/19 16:00 93/53 07/24/19 16:00 26 93/53 Mechanical Ventilator 35 07/24/19 16:00 98.4 79 27 110/59 (76) 100 07/24/19 15:30 83 12 117/84 (95) 94 07/24/19 15:12 84 28 100 Mechanical Ventilator 30 75 26 30 07/24/19 15:00 73 26 103/55 (71) 100 07/24/19 15:00 117/61 6/13/20 15:00 26 117/61 Mechanical Ventilator 35 07/24/19 14:30 73 25 113/54 (73) 100 07/24/19 14:00 101/53 07/24/19 14:00 29 101/53 Mechanical Ventilator 35 07/24/19 14:00 73 27 101/53 (69) 100 07/24/19 13:30 74 26 100/62 (75) 100 07/24/19 13:00 72 28 101/62 (75) 100 07/24/19 13:00 100/62 07/24/19 13:00 27 100/62 Mechanical Ventilator 35 07/24/19 12:30 75 26 104/60 (75) 100 07/24/19 12:00 98.4 77 28 102/53 (69) 100 07/24/19 12:00 74 07/24/19 12:00 89/51 07/24/19 12:00 26 89/51 Mechanical Ventilator 35 07/24/19 12:00 35 07/24/19 12:00 Mechanical Ventilator 07/24/19 11:30 78 26 93/55 (68) 100 07/24/19 11:09 71 26 100 Mechanical Ventilator 30 70 28 30 07/24/19 11:00 92/54 07/24/19 11:00 26 92/54 Mechanical Ventilator 40 07/24/19 11:00 75 24 142/70 (94) 100 07/24/19 10:45 142/70 07/24/19 10:30 74 29 136/69 (91) 100 07/24/19 10:30 128/69 07/24/19 10:15 136/69 07/24/19 10:00 72 29 117/57 (77) 100 07/24/19 10:00 118/77 07/24/19 10:00 29 128/69 Mechanical Ventilator 40 07/24/19 09:30 77 25 125/59 (81) 100 07/24/19 09:00 70 28 125/64 (84) 100 07/24/19 09:00 129/63 07/24/19 09:00 28 129/63 Mechanical Ventilator 40 07/24/19 08:45 125/64 07/24/19 08:30 133/69 07/24/19 08:30 75 23 134/64 (87) 100 07/24/19 08:15 134/64 07/24/19 08:00 99.2 64 26 133/68 (89) 100 07/24/19 08:00 Mechanical Ventilator 07/24/19 08:00 137/62 07/24/19 08:00 26 137/62 Mechanical Ventilator 45 07/24/19 08:00 35 07/24/19 08:00 73 07/24/19 07:30 68 26 111/60 (77) 100 07/24/19 07:14 100 07/24/19 07:14 75 26 100 Mechanical Ventilator 35 73 26 35 07/24/19 07:00 69 27 108/57 (74) 100 07/24/19 07:00 108/57 07/24/19 07:00 27 108/57 Mechanical Ventilator 40 07/24/19 06:30 75 26 07/24/19 06:00 75 27 112/73 (86) 100 07/24/19 06:00 112/73 07/24/19 06:00 27 112/73 Mechanical Ventilator 40 07/24/19 05:30 73 27 119/70 (86) 100 07/24/19 05:00 73 27 128/60 (82) 100 07/24/19 05:00 128/60 07/24/19 05:00 27 128/60 Mechanical Ventilator 40 07/24/19 04:00 99.0 73 27 119/62 (81) 100 07/24/19 04:00 119/67 07/24/19 04:00 27 119/67 Mechanical Ventilator 40 07/24/19 04:00 71 07/24/19 04:00 Mechanical Ventilator 07/24/19 04:00 40 07/24/19 03:08 76 31 100 Mechanical Ventilator 40 76 31 40 07/24/19 03:00 100/54 07/24/19 03:00 26 100/54 Mechanical Ventilator 40 07/24/19 03:00 76 26 100/54 (69) 100 07/24/19 02:00 112/63 07/24/19 02:00 27 112/63 Mechanical Ventilator 40 07/24/19 02:00 68 27 112/63 (79) 100 07/24/19 01:00 106/59 07/24/19 01:00 26 106/59 Mechanical Ventilator 40 07/24/19 01:00 71 28 106/59 (75) 100 07/24/19 00:53 27 97/58 Mechanical Ventilator 40 07/24/19 00:00 40 07/24/19 00:00 75 07/24/19 00:00 116/59 07/24/19 00:00 26 116/59 Mechanical Ventilator 45 07/24/19 00:00 Mechanical Ventilator 07/24/19 00:00 99.0 72 27 116/59 (78) 100 07/23/19 23:06 73 27 100 Mechanical Ventilator 40 73 27 40 07/23/19 23:00 108/59 07/23/19 23:00 27 108/59 Mechanical Ventilator 45 07/23/19 23:00 74 27 108/59 (75) 100 07/23/19 22:00 73 25 113/64 (80) 100 07/23/19 22:00 113/64 07/23/19 22:00 25 113/64 Mechanical Ventilator 45 07/23/19 21:45 73 27 115/61 (79) 100 07/23/19 21:30 73 27 107/58 (74) 100 07/23/19 21:15 72 29 113/64 (80) 100 07/23/19 21:00 70 26 137/62 (87) 100 07/23/19 21:00 137/62 07/23/19 21:00 26 137/62 Mechanical Ventilator 45 07/23/19 20:30 68 26 122/61 (81) 100 07/23/19 20:00 Mechanical Ventilator 07/23/19 20:00 45 07/23/19 20:00 70 07/23/19 20:00 99.0 68 26 112/65 (81) 100 07/23/19 20:00 112/65 07/23/19 20:00 26 112/65 Mechanical Ventilator 45 07/23/19 19:30 68 26 98/58 (71) 100 07/23/19 19:12 82/57 07/23/19 19:09 83 26 100 Mechanical Ventilator 40 83 26 40 07/23/19 19:00 73 26 82/57 (65) 100 07/23/19 18:30 74 25 113/59 (77) 100 07/23/19 18:00 103/57 07/23/19 18:00 25 103/57 Mechanical Ventilator 45 07/23/19 18:00 73 26 103/57 (72) 100 07/23/19 17:30 77 26 118/61 (80) 100 07/23/19 17:00 78 26 122/69 (86) 100 07/23/19 17:00 122/69 07/23/19 17:00 26 122/69 Mechanical Ventilator 45 07/23/19 16:45 126/71 07/23/19 16:30 130/69 07/23/19 16:30 77 23 130/69 (89) 100 07/23/19 16:15 145/71 07/23/19 16:00 74 07/23/19 16:00 120/64 07/23/19 16:00 26 120/64 Mechanical Ventilator 45 07/23/19 16:00 Mechanical Ventilator 07/23/19 16:00 45 07/23/19 16:00 99.5 72 26 120/64 (82) 100 07/23/19 15:45 79/45 07/23/19 15:30 69 26 110/71 (84) 100 07/23/19 15:16 71 26 100 Mechanical Ventilator 40 70 26 40 07/23/19 15:00 71 23 113/64 (80) 100 07/23/19 15:00 113/64 07/23/19 15:00 26 113/64 Mechanical Ventilator 45 07/23/19 14:30 70 23 115/63 (80) 100 07/23/19 14:00 67 26 107/64 (78) 100 07/23/19 14:00 107/64 07/23/19 14:00 25 107/64 Mechanical Ventilator 45 Intake and Output 07/24/19 07/25/19 19:00 07:00 Intake Total 671.95 ml 607.2726 ml Balance 671.95 ml 607.2726 ml Free Water 60 ml IV Total 191.95 ml 187.2726 ml Tube Feeding 420 ml 420 ml # Bowel Movements 2 1 Labs Test 07/23/19 04:00 07/24/19 03:30 07/25/19 04:00 White Blood Count 17.4 K/UL (4.8-10.8) 17.9 K/UL (4.8-10.8) 16.8 K/UL (4.8-10.8) Red Blood Count 3.06 M/UL (4.70-6.10) 3.26 M/UL (4.70-6.10) 3.24 M/UL (4.70-6.10) Hemoglobin 8.8 G/DL (14.2-18.0) 9.6 G/DL (14.2-18.0) 9.4 G/DL (14.2-18.0) Hematocrit 28.9 % (42.0-52.0) 31.0 % (42.0-52.0) 31.9 % (42.0-52.0) Mean Corpuscular Volume 95 FL (80-99) 95 FL (80-99) 98 FL (80-99) Mean Corpuscular Hemoglobin 28.7 PG (27.0-31.0) 29.6 PG (27.0-31.0) 28.9 PG (27.0-31.0) Mean Corpuscular Hemoglobin Concent 30.4 G/DL (32.0-36.0) 31.1 G/DL (32.0-36.0) 29.4 G/DL (32.0-36.0) Red Cell Distribution Width 16.3 % (11.6-14.8) 16.5 % (11.6-14.8) 18.6 % (11.6-14.8) Platelet Count 244 K/UL (150-450) 229 K/UL (150-450) 271 K/UL (150-450) Mean Platelet Volume 8.0 FL (6.5-10.1) 7.7 FL (6.5-10.1) 8.4 FL (6.5-10.1) Neutrophils (%) (Auto) 80.5 % (45.0-75.0) 83.7 % (45.0-75.0) 83.1 % (45.0-75.0) Lymphocytes (%) (Auto) 8.2 % (20.0-45.0) 6.8 % (20.0-45.0) 8.0 % (20.0-45.0) Monocytes (%) (Auto) 6.4 % (1.0-10.0) 5.6 % (1.0-10.0) 6.1 % (1.0-10.0) Eosinophils (%) (Auto) 4.2 % (0.0-3.0) 3.3 % (0.0-3.0) 2.2 % (0.0-3.0) Basophils (%) (Auto) 0.6 % (0.0-2.0) 0.5 % (0.0-2.0) 0.6 % (0.0-2.0) Sodium Level 136 MMOL/L (136-145) 138 MMOL/L (136-145) 140 MMOL/L (136-145) Potassium Level 3.7 MMOL/L (3.5-5.1) 3.6 MMOL/L (3.5-5.1) 3.7 MMOL/L (3.5-5.1) Chloride Level 93 MMOL/L (98-107) 98 MMOL/L (98-107) 98 MMOL/L (98-107) Carbon Dioxide Level 27 MMOL/L (21-32) 28 MMOL/L (21-32) 26 MMOL/L (21-32) Anion Gap 16 mmol/L (5-15) 12 mmol/L (5-15) 16 mmol/L (5-15) Blood Urea Nitrogen 86 mg/dL (7-18) 55 mg/dL (7-18) 70 mg/dL (7-18) Creatinine 9.9 MG/DL (0.55-1.30) 7.3 MG/DL (0.55-1.30) 8.3 MG/DL (0.55-1.30) Estimat Glomerular Filtration Rate 5.3 mL/min (>60) 7.5 mL/min (>60) 6.5 mL/min (>60) Glucose Level 155 MG/DL (74-106) 160 MG/DL (74-106) 175 MG/DL (74-106) Calcium Level 9.5 MG/DL (8.5-10.1) 9.0 MG/DL (8.5-10.1) 9.4 MG/DL (8.5-10.1) Phosphorus Level 3.7 MG/DL (2.5-4.9) 2.9 MG/DL (2.5-4.9) Magnesium Level 2.8 MG/DL (1.8-2.4) Total Bilirubin 0.4 MG/DL (0.2-1.0) 0.4 MG/DL (0.2-1.0) 0.5 MG/DL (0.2-1.0) Aspartate Amino Transf (AST/SGOT) 15 U/L (15-37) 18 U/L (15-37) 15 U/L (15-37) Alanine Aminotransferase (ALT/SGPT) 11 U/L (12-78) 11 U/L (12-78) 6 U/L (12-78) Alkaline Phosphatase 148 U/L (46-116) 115 U/L (46-116) 134 U/L (46-116) Total Protein 8.0 G/DL (6.4-8.2) 8.5 G/DL (6.4-8.2) 8.0 G/DL (6.4-8.2) Albumin 2.8 G/DL (3.4-5.0) 3.1 G/DL (3.4-5.0) 2.7 G/DL (3.4-5.0) Globulin 5.2 g/dL 5.4 g/dL 5.3 g/dL Albumin/Globulin Ratio 0.5 (1.0-2.7) 0.6 (1.0-2.7) 0.5 (1.0-2.7) Random Vancomycin Level 19.9 ug/mL Height (Feet): 6 Height (Inches): 1.00 Weight (Pounds): 187 Objective General: nv, confused, sedated Heent: bilateral eye normal inspection, bilateral eye PERRL ++Ng Respiratory: normal breath sounds, no respiratory distress, intubated/vent +++ trach+++ Cardiovascular: regular rate, rhythm, no edema Gastrointestinal: normal inspection, soft, non-distended, peg+ Rectal: deferred Musculoskeletal: normal range of motion, non-tender, R fem cath++ Neurologic: alert, motor strength/tone normal, sensory intact, responsive, speech normal Skin: Decubitus/Ulcer - See RN skin exam. : jamaal+ Greg Cabral MD Jul 25, 2019 13:55
[2019-07-25] MEDS: Dyna-Hex 2% Top Sol 2oz TOPIC SCH (20:02)
--- NOTE | 2019-07-25 20:16 | General Progress Note ---
Assessment/Plan Problem List: (1) HTN (hypertension) ICD Codes: I10 - Essential (primary) hypertension SNOMED: 76618397 (2) CASSANDRA (acute kidney injury) ICD Codes: N17.9 - Acute kidney failure, unspecified SNOMED: 7359887, 73946869 (3) Anemia in chronic kidney disease (CKD) ICD Codes: N18.9 - Chronic kidney disease, unspecified; D63.1 - Anemia in chronic kidney disease SNOMED: 274447008 (4) Renal failure ICD Codes: N19 - Unspecified kidney failure SNOMED: 74718801 (5) Respiratory failure requiring intubation ICD Codes: J96.90 - Respiratory failure, unspecified, unspecified whether with hypoxia or hypercapnia; A41.89 - Other specified sepsis SNOMED: 417805605, 571457788 (6) Pneumonia due to COVID-19 virus ICD Codes: U07.1 - COVID-19; J12.89 - Other viral pneumonia SNOMED: 687035750, 182713267 (7) Sepsis due to severe acute respiratory syndrome coronavirus 2 (SARS-CoV-2) ICD Codes: U07.1 - COVID-19; A41.89 - Other specified sepsis SNOMED: 678621472, 230858965 Status: progressing, unchanged, deteriorating Assessment/Plan: prn pressor septic shock no change check h/h is stable leukocytosis azotemia/renal failure diaylsis per renal s/p covid pna Subjective ROS Limited/Unobtainable: Yes Allergies: Coded Allergies: No Known Allergies (Unverified , 05/28/19) Objective Last 24 Hour Vital Signs Date Time Temp Pulse Resp B/P (MAP) Pulse Ox O2 Delivery O2 Flow Rate FiO2 07/25/19 20:11 78 27 100 Mechanical Ventilator 30 78 28 30 07/25/19 20:00 30 07/25/19 20:00 109/68 07/25/19 20:00 27 109/68 Mechanical Ventilator 30 07/25/19 20:00 Mechanical Ventilator 07/25/19 19:00 115/67 07/25/19 19:00 27 115/61 Mechanical Ventilator 30 07/25/19 19:00 81 27 115/61 (79) 100 07/25/19 18:30 85 31 101/58 (72) 100 07/25/19 18:00 99/56 07/25/19 18:00 30 99/56 Mechanical Ventilator 30 07/25/19 18:00 85 33 119/65 (83) 100 07/25/19 17:30 89 29 121/59 (79) 100 07/25/19 17:00 88 31 115/61 (79) 100 07/25/19 17:00 115/61 07/25/19 17:00 31 115/61 Mechanical Ventilator 30 07/25/19 16:30 83 18 143/91 (108) 99 07/25/19 16:00 35 07/25/19 16:00 99.0 78 18 148/73 (98) 99 07/25/19 16:00 78 18 148/73 (98) 99 07/25/19 16:00 Mechanical Ventilator 07/25/19 16:00 139/65 07/25/19 16:00 18 148/73 Mechanical Ventilator 35 07/25/19 16:00 78 07/25/19 15:30 76 18 144/76 (98) 100 07/25/19 15:18 74 29 100 Mechanical Ventilator 30 81 29 30 07/25/19 15:00 75 27 142/65 (90) 100 07/25/19 15:00 142/65 07/25/19 15:00 27 142/65 Mechanical Ventilator 35 07/25/19 14:30 76 33 134/69 (90) 100 07/25/19 14:00 69 24 128/66 (86) 100 07/25/19 14:00 130/69 07/25/19 14:00 25 130/69 Mechanical Ventilator 35 07/25/19 13:30 73 28 116/61 (79) 100 07/25/19 13:00 74 26 93/53 (66) 100 07/25/19 13:00 116/59 07/25/19 13:00 24 116/59 Mechanical Ventilator 35 07/25/19 12:30 74 26 91/53 (66) 100 07/25/19 12:00 35 07/25/19 12:00 73 07/25/19 12:00 Mechanical Ventilator 07/25/19 12:00 100/56 07/25/19 12:00 28 100/56 Mechanical Ventilator 35 07/25/19 12:00 98.6 74 23 115/65 (82) 100 07/25/19 11:30 73 20 118/65 (82) 100 07/25/19 11:00 98/54 07/25/19 11:00 26 98/54 Mechanical Ventilator 35 07/25/19 11:00 79 25 101/51 (68) 100 07/25/19 10:49 80 26 100 Mechanical Ventilator 30 89 26 30 07/25/19 10:30 79 27 100/52 (68) 100 07/25/19 10:00 78 11 104/54 (71) 100 07/25/19 10:00 100/52 07/25/19 10:00 20 100/52 Mechanical Ventilator 35 07/25/19 09:30 79 26 126/61 (82) 100 07/25/19 09:00 76 30 114/60 (78) 100 07/25/19 09:00 118/70 07/25/19 09:00 29 118/70 Mechanical Ventilator 35 07/25/19 08:30 119/61 07/25/19 08:30 27 119/61 Mechanical Ventilator 35 07/25/19 08:30 73 21 111/57 (75) 100 07/25/19 08:00 35 07/25/19 08:00 29 108/56 Mechanical Ventilator 35 07/25/19 08:00 83 07/25/19 08:00 99.1 73 27 109/53 (71) 100 07/25/19 08:00 Mechanical Ventilator 07/25/19 07:30 76 27 116/62 (80) 100 07/25/19 07:24 100 07/25/19 07:20 74 27 100 Mechanical Ventilator 30 77 26 30 07/25/19 07:00 77 23 116/66 (83) 100 07/25/19 07:00 116/66 07/25/19 07:00 26 116/66 Mechanical Ventilator 35 07/25/19 06:45 67 29 88/52 (64) 100 07/25/19 06:30 68 29 93/51 (65) 100 07/25/19 06:15 69 34 89/52 (64) 100 07/25/19 06:00 68 24 07/25/19 06:00 98/52 07/25/19 06:00 26 98/52 Mechanical Ventilator 35 07/25/19 06:00 73 26 98/52 (67) 100 07/25/19 05:45 75 27 115/62 (79) 100 07/25/19 05:30 71 27 100/53 (69) 100 07/25/19 05:15 71 27 113/61 (78) 100 07/25/19 05:00 95/53 07/25/19 05:00 28 95/53 Mechanical Ventilator 35 07/25/19 05:00 71 27 95/53 (67) 100 07/25/19 04:45 76 24 118/61 (80) 100 07/25/19 04:30 78 22 104/55 (71) 100 07/25/19 04:15 77 31 88/51 (63) 100 07/25/19 04:06 76 26 90/52 (65) 100 07/25/19 04:00 98.4 77 26 80/46 (57) 100 07/25/19 04:00 35 07/25/19 04:00 84/46 07/25/19 04:00 29 84/46 Mechanical Ventilator 35 07/25/19 04:00 Mechanical Ventilator 07/25/19 03:45 81 26 108/53 (71) 100 07/25/19 03:30 78 24 90/51 (64) 100 07/25/19 03:30 80 26 100 Mechanical Ventilator 30 82 27 30 07/25/19 03:19 79 07/25/19 03:15 80 26 93/51 (65) 100 07/25/19 03:00 104/61 07/25/19 03:00 26 104/61 Mechanical Ventilator 35 07/25/19 03:00 86 29 104/61 (75) 100 07/25/19 02:45 88 26 117/55 (75) 95 07/25/19 02:30 77 29 117/63 (81) 100 07/25/19 02:15 76 26 104/56 (72) 100 07/25/19 02:00 79 28 109/55 (73) 100 07/25/19 02:00 109/55 07/25/19 02:00 27 109/55 Mechanical Ventilator 35 07/25/19 01:45 74 29 125/73 (90) 100 07/25/19 01:30 75 24 129/67 (87) 100 07/25/19 01:29 27 133/85 Mechanical Ventilator 35 07/25/19 01:15 69 33 104/59 (74) 100 07/25/19 01:00 70 29 98/58 (71) 100 07/25/19 01:00 98/58 07/25/19 01:00 30 98/58 Mechanical Ventilator 35 07/25/19 00:45 71 27 99/54 (69) 100 07/25/19 00:30 72 27 109/62 (78) 100 07/25/19 00:15 70 29 114/65 (81) 100 07/25/19 00:00 114/65 07/25/19 00:00 27 114/65 Mechanical Ventilator 35 07/25/19 00:00 100.1 73 25 92/57 (69) 100 07/25/19 00:00 Mechanical Ventilator 07/24/19 23:45 76 30 127/60 (82) 100 07/24/19 23:30 75 27 100 Mechanical Ventilator 30 76 28 30 07/24/19 23:30 73 26 104/53 (70) 100 07/24/19 23:15 76 29 123/59 (80) 100 07/24/19 23:05 79 07/24/19 23:00 123/59 07/24/19 23:00 26 123/59 Mechanical Ventilator 35 07/24/19 23:00 75 26 122/59 (80) 100 07/24/19 22:45 70 27 129/62 (84) 100 07/24/19 22:30 74 28 123/58 (79) 100 07/24/19 22:15 77 26 113/54 (73) 100 07/24/19 22:00 113/54 07/24/19 22:00 26 113/54 Mechanical Ventilator 35 07/24/19 22:00 75 25 123/59 (80) 100 07/24/19 21:45 76 28 113/55 (74) 100 07/24/19 21:30 76 26 137/62 (87) 100 07/24/19 21:15 73 29 114/56 (75) 100 07/24/19 21:00 76 23 132/60 (84) 100 07/24/19 21:00 114/56 07/24/19 21:00 26 114/56 Mechanical Ventilator 35 07/24/19 20:45 74 24 143/64 (90) 100 07/24/19 20:30 70 28 113/56 (75) 100 Intake and Output 07/24/19 07/25/19 19:00 07:00 Intake Total 671.95 ml 607.2726 ml Balance 671.95 ml 607.2726 ml Free Water 60 ml IV Total 191.95 ml 187.2726 ml Tube Feeding 420 ml 420 ml # Bowel Movements 2 1 Laboratory Tests 07/25/19 04:00: White Blood Count 16.8H, Red Blood Count 3.24L, Hemoglobin 9.4L, Hematocrit 31.9L, Mean Corpuscular Volume 98, Mean Corpuscular Hemoglobin 28.9, Mean Corpuscular Hemoglobin Concent 29.4L, Red Cell Distribution Width 18.6H, Platelet Count 271, Mean Platelet Volume 8.4, Neutrophils (%) (Auto) 83.1H, Lymphocytes (%) (Auto) 8.0L, Monocytes (%) (Auto) 6.1, Eosinophils (%) (Auto) 2.2, Basophils (%) (Auto) 0.6, Sodium Level 140, Potassium Level 3.7, Chloride Level 98, Carbon Dioxide Level 26, Anion Gap 16H, Blood Urea Nitrogen 70H, Creatinine 8.3H, Estimat Glomerular Filtration Rate 6.5, Glucose Level 175H, Calcium Level 9.4, Phosphorus Level 2.9, Total Bilirubin 0.5, Aspartate Amino Transf (AST/SGOT) 15, Alanine Aminotransferase (ALT/SGPT) 6L, Alkaline Phosphatase 134H, Total Protein 8.0, Albumin 2.7L, Globulin 5.3, Albumin/ Globulin Ratio 0.5L Height (Feet): 6 Height (Inches): 1.00 Weight (Pounds): 187 Karishma Mulligan MD Jul 25, 2019 20:15
[2019-07-26] VITALS (39 sets, daily range): BP systolic 90–157; BP diastolic 54–80
[2019-07-26] MEDS: NovoLOG Insulin Flexpen SUBQ SCH ×5 (00:01→23:43)
[2019-07-26] MEDS: Albuterol 90mcg Inhaler 8gm INH SCH ×6 (03:37→23:04)
[2019-07-26] MEDS: Renvela 2400 mg pkt NG SCH ×4 (05:23→23:20)
[2019-07-26] MEDS: Midodrine 10mg tab ORAL SCH ×3 (05:24→20:59)
[2019-07-26 06:27] LABS: BASOPHILS % (AUTO) 0.8 % (0.0-2.0); EOSINOPHILS % (AUTO) 2.8 % (0.0-3.0); HEMATOCRIT 30.9 % (42.0-52.0); LYMPHOCYTES % (AUTO) 7.8 % (20.0-45.0); MEAN CORPUSCULAR VOLUME 98 FL (80-99); NEUTROPHILS % (AUTO) 82.5 % (45.0-75.0); PLATELET COUNT 330 K/UL (150-450); RED BLOOD COUNT 3.14 M/UL (4.70-6.10); RED CELL DISTRIBUTION WIDTH 17.9 % (11.6-14.8); WHITE BLOOD COUNT 17.1 K/UL (4.8-10.8)
[2019-07-26 07:26] LABS: ANION GAP 16 mmol/L (5-15); BLOOD UREA NITROGEN 81 mg/dL (7-18); CALCIUM 9.9 MG/DL (8.5-10.1); CARBON DIOXIDE 23 MMOL/L (21-32); CHLORIDE 99 MMOL/L (98-107); CREATININE 9.6 MG/DL (0.55-1.30); POTASSIUM 3.6 MMOL/L (3.5-5.1); SODIUM 138 MMOL/L (136-145)
[2019-07-26] MEDS: Enoxaparin 30mg Inj SUBQ SCH (08:40)
[2019-07-26 10:06] LABS: ALANINE AMINOTRANSFERASE 11 U/L (12-78); ALBUMIN 2.5 G/DL (3.4-5.0); ALKALINE PHOSPHATASE 144 U/L (46-116); ASPARTATE AMINO TRANSFERASE 19 U/L (15-37); BILIRUBIN,DIRECT 0.2 MG/DL (0.0-0.3); BILIRUBIN,TOTAL 0.3 MG/DL (0.2-1.0); PHOSPHORUS 3.1 MG/DL (2.5-4.9)
--- NOTE | 2019-07-26 10:33 | General Progress Note ---
Assessment/Plan Status: progressing, unchanged, deteriorating Assessment/Plan: 1. Diabetes. 2. Hypertension. 3. Coronary artery disease. 4. COPD. 5. Psychiatric disorder with schizophrenia. 6. History of hepatitis C. 7. HLP. 8. Chronic kidney disease, now with acute renal failure. 9. Anemia. 10. Hypothyroidism. 11. Spinal stenosis. 12. Constipation. 13. GERD. 14. COVID positive HD per nephrology fu labs icu care s/p PEG GTF monitor for residuals Subjective ROS Limited/Unobtainable: No Allergies: Coded Allergies: No Known Allergies (Unverified , 05/28/19) Objective Last 24 Hour Vital Signs Date Time Temp Pulse Resp B/P (MAP) Pulse Ox O2 Delivery O2 Flow Rate FiO2 07/26/19 09:00 91 27 135/77 (96) 100 07/26/19 08:30 87 22 130/73 (92) 100 07/26/19 08:00 99.1 85 31 127/66 (86) 100 07/26/19 08:00 30 07/26/19 08:00 Mechanical Ventilator 07/26/19 07:30 85 27 120/80 (93) 100 07/26/19 07:11 84 30 100 Mechanical Ventilator 30 88 28 30 07/26/19 07:00 91 26 128/67 (87) 100 07/26/19 07:00 128/67 07/26/19 07:00 26 128/67 Mechanical Ventilator 30 07/26/19 06:30 144/74 07/26/19 06:30 90 28 07/26/19 06:00 111/61 07/26/19 06:00 26 111/61 Mechanical Ventilator 30 07/26/19 06:00 89 26 111/61 (78) 100 07/26/19 05:00 87 26 111/60 (77) 100 07/26/19 05:00 111/60 07/26/19 05:00 26 111/60 Mechanical Ventilator 30 07/26/19 04:00 Mechanical Ventilator 07/26/19 04:00 79 07/26/19 04:00 116/65 07/26/19 04:00 30 116/65 Mechanical Ventilator 40 07/26/19 04:00 99.2 86 30 116/65 (82) 100 07/26/19 04:00 30 07/26/19 03:37 89 32 100 Mechanical Ventilator 30 91 33 30 07/26/19 03:00 79 29 110/63 (79) 100 07/26/19 03:00 110/63 07/26/19 03:00 29 110/63 Mechanical Ventilator 30 07/26/19 02:00 86 30 127/64 (85) 100 07/26/19 02:00 127/64 07/26/19 02:00 30 127/64 Mechanical Ventilator 30 07/26/19 01:00 118/59 07/26/19 01:00 31 118/59 Mechanical Ventilator 30 07/26/19 01:00 82 31 118/59 (78) 100 07/26/19 00:00 Mechanical Ventilator 07/26/19 00:00 82 07/26/19 00:00 99.5 87 32 121/63 (82) 100 07/26/19 00:00 121/63 07/26/19 00:00 32 121/63 Mechanical Ventilator 30 07/26/19 00:00 30 07/25/19 23:56 91 31 100 Mechanical Ventilator 30 93 28 30 07/25/19 23:00 129/72 07/25/19 23:00 27 129/72 Mechanical Ventilator 30 07/25/19 23:00 84 27 129/72 (91) 100 07/25/19 22:00 82 30 128/63 (84) 100 07/25/19 22:00 128/68 07/25/19 22:00 30 128/68 Mechanical Ventilator 30 07/25/19 21:00 116/66 07/25/19 21:00 28 116/66 Mechanical Ventilator 30 07/25/19 21:00 78 28 116/66 (83) 100 07/25/19 20:11 78 27 100 Mechanical Ventilator 30 78 28 30 07/25/19 20:00 30 07/25/19 20:00 109/68 07/25/19 20:00 27 109/68 Mechanical Ventilator 30 07/25/19 20:00 99.0 77 27 109/68 (82) 100 07/25/19 20:00 84 07/25/19 20:00 Mechanical Ventilator 07/25/19 19:00 115/67 07/25/19 19:00 27 115/61 Mechanical Ventilator 30 07/25/19 19:00 81 27 115/61 (79) 100 07/25/19 18:30 85 31 101/58 (72) 100 07/25/19 18:00 99/56 07/25/19 18:00 30 99/56 Mechanical Ventilator 30 07/25/19 18:00 85 33 119/65 (83) 100 07/25/19 17:30 89 29 121/59 (79) 100 07/25/19 17:00 88 31 115/61 (79) 100 07/25/19 17:00 115/61 07/25/19 17:00 31 115/61 Mechanical Ventilator 30 07/25/19 16:30 83 18 143/91 (108) 99 07/25/19 16:00 35 07/25/19 16:00 99.0 78 18 148/73 (98) 99 07/25/19 16:00 78 18 148/73 (98) 99 07/25/19 16:00 Mechanical Ventilator 07/25/19 16:00 139/65 07/25/19 16:00 18 148/73 Mechanical Ventilator 35 07/25/19 16:00 78 07/25/19 15:30 76 18 144/76 (98) 100 07/25/19 15:18 74 29 100 Mechanical Ventilator 30 81 29 30 07/25/19 15:00 75 27 142/65 (90) 100 07/25/19 15:00 142/65 07/25/19 15:00 27 142/65 Mechanical Ventilator 35 07/25/19 14:30 76 33 134/69 (90) 100 07/25/19 14:00 69 24 128/66 (86) 100 07/25/19 14:00 130/69 07/25/19 14:00 25 130/69 Mechanical Ventilator 35 07/25/19 13:30 73 28 116/61 (79) 100 07/25/19 13:00 74 26 93/53 (66) 100 07/25/19 13:00 116/59 07/25/19 13:00 24 116/59 Mechanical Ventilator 35 07/25/19 12:30 74 26 91/53 (66) 100 07/25/19 12:00 35 07/25/19 12:00 73 07/25/19 12:00 Mechanical Ventilator 07/25/19 12:00 100/56 07/25/19 12:00 28 100/56 Mechanical Ventilator 35 07/25/19 12:00 98.6 74 23 115/65 (82) 100 6/14/20 11:30 73 20 118/65 (82) 100 07/25/19 11:00 98/54 07/25/19 11:00 26 98/54 Mechanical Ventilator 35 07/25/19 11:00 79 25 101/51 (68) 100 07/25/19 10:49 80 26 100 Mechanical Ventilator 30 89 26 30 Intake and Output 07/25/19 07/26/19 19:00 07:00 Intake Total 690.57 ml 581.54 ml Balance 690.57 ml 581.54 ml Free Water 150 ml 50 ml IV Total 120.57 ml 111.54 ml Tube Feeding 420 ml 420 ml # Bowel Movements 2 2 Laboratory Tests 07/26/19 05:23: White Blood Count 17.1H, Red Blood Count 3.14L, Hemoglobin 9.0L, Hematocrit 30.9L, Mean Corpuscular Volume 98, Mean Corpuscular Hemoglobin 28.7, Mean Corpuscular Hemoglobin Concent 29.1L, Red Cell Distribution Width 17.9H, Platelet Count 330, Mean Platelet Volume 7.6, Neutrophils (%) (Auto) 82.5H, Lymphocytes (%) (Auto) 7.8L, Monocytes (%) (Auto) 6.0, Eosinophils (%) (Auto) 2.8, Basophils (%) (Auto) 0.8, Sodium Level 138, Potassium Level 3.6, Chloride Level 99, Carbon Dioxide Level 23, Anion Gap 16H, Blood Urea Nitrogen 81H, Creatinine 9.6H, Estimat Glomerular Filtration Rate 5.5, Glucose Level 202H, Calcium Level 9.9, Phosphorus Level 3.1, Magnesium Level 3.0H, Total Bilirubin 0.3, Direct Bilirubin 0.2, Aspartate Amino Transf (AST/SGOT) 19, Alanine Aminotransferase (ALT/SGPT) 11L, Alkaline Phosphatase 144H, Total Protein 7.4, Albumin 2.5L Height (Feet): 6 Height (Inches): 1.00 Weight (Pounds): 188 General Appearance: no apparent distress EENT: normal ENT inspection Neck: supple Cardiovascular: normal rate Respiratory/Chest: decreased breath sounds Abdomen: normal bowel sounds, non tender, soft Extremities: non-tender Marito Ramires MD Jul 26, 2019 10:33
--- NOTE | 2019-07-26 10:37 | Infectious Diseases Prog Note ---
Assessment/Plan Assessment/Plan IMPRESSION: 1. COVID19 pneumonia Positive: 05/27, 05/31 , 06/05, 06/09 ,06/17, 06/19, 06/23, 06/27, 07/03, 07/15 2. MRSA carrier. 3. Chronic kidney disease , end-stage renal disease. 4. COPD. 5. Hypertension. 6. Anemia. 7. Hypothyroidism. 8. Hyperlipidemia. 9. Major depression. 10. Leukocytosis 11. Hypotension 12. Hepatitis C 13. Hyperuricemia 14. Diarrhea 15. septic shock 16. Leukocytosis improving 17. Pneumonia with Staph aureus ( MRSA) 18. Bacteremia with Staph coagulase negative RECOMMENDATIONS: Continue IV Vancomycin Case was D/W RN Subjective ROS Limited/Unobtainable: Yes Constitutional: Denies: fever Cardiovascular: Reports: other - on Levophed 1 jermaine Neurologic: Reports: confusion, other - on restraint Allergies: Coded Allergies: No Known Allergies (Unverified , 05/28/19) Objective Vital Signs Last 24 Hour Vital Signs Date Time Temp Pulse Resp B/P (MAP) Pulse Ox O2 Delivery O2 Flow Rate FiO2 07/26/19 09:00 91 27 135/77 (96) 100 07/26/19 08:30 87 22 130/73 (92) 100 07/26/19 08:00 99.1 85 31 127/66 (86) 100 07/26/19 08:00 30 07/26/19 08:00 Mechanical Ventilator 07/26/19 07:30 85 27 120/80 (93) 100 07/26/19 07:11 84 30 100 Mechanical Ventilator 30 88 28 30 07/26/19 07:00 91 26 128/67 (87) 100 07/26/19 07:00 128/67 07/26/19 07:00 26 128/67 Mechanical Ventilator 30 07/26/19 06:30 144/74 07/26/19 06:30 90 28 07/26/19 06:00 111/61 07/26/19 06:00 26 111/61 Mechanical Ventilator 30 07/26/19 06:00 89 26 111/61 (78) 100 07/26/19 05:00 87 26 111/60 (77) 100 07/26/19 05:00 111/60 07/26/19 05:00 26 111/60 Mechanical Ventilator 30 07/26/19 04:00 Mechanical Ventilator 07/26/19 04:00 79 07/26/19 04:00 116/65 07/26/19 04:00 30 116/65 Mechanical Ventilator 40 07/26/19 04:00 99.2 86 30 116/65 (82) 100 07/26/19 04:00 30 07/26/19 03:37 89 32 100 Mechanical Ventilator 30 91 33 30 07/26/19 03:00 79 29 110/63 (79) 100 07/26/19 03:00 110/63 07/26/19 03:00 29 110/63 Mechanical Ventilator 30 07/26/19 02:00 86 30 127/64 (85) 100 07/26/19 02:00 127/64 07/26/19 02:00 30 127/64 Mechanical Ventilator 30 07/26/19 01:00 118/59 07/26/19 01:00 31 118/59 Mechanical Ventilator 30 07/26/19 01:00 82 31 118/59 (78) 100 07/26/19 00:00 Mechanical Ventilator 07/26/19 00:00 82 07/26/19 00:00 99.5 87 32 121/63 (82) 100 07/26/19 00:00 121/63 07/26/19 00:00 32 121/63 Mechanical Ventilator 30 07/26/19 00:00 30 07/25/19 23:56 91 31 100 Mechanical Ventilator 30 93 28 30 07/25/19 23:00 129/72 07/25/19 23:00 27 129/72 Mechanical Ventilator 30 07/25/19 23:00 84 27 129/72 (91) 100 07/25/19 22:00 82 30 128/63 (84) 100 07/25/19 22:00 128/68 07/25/19 22:00 30 128/68 Mechanical Ventilator 30 07/25/19 21:00 116/66 07/25/19 21:00 28 116/66 Mechanical Ventilator 30 07/25/19 21:00 78 28 116/66 (83) 100 07/25/19 20:11 78 27 100 Mechanical Ventilator 30 78 28 30 07/25/19 20:00 30 07/25/19 20:00 109/68 07/25/19 20:00 27 109/68 Mechanical Ventilator 30 07/25/19 20:00 99.0 77 27 109/68 (82) 100 07/25/19 20:00 84 07/25/19 20:00 Mechanical Ventilator 07/25/19 19:00 115/67 07/25/19 19:00 27 115/61 Mechanical Ventilator 30 07/25/19 19:00 81 27 115/61 (79) 100 07/25/19 18:30 85 31 101/58 (72) 100 07/25/19 18:00 99/56 07/25/19 18:00 30 99/56 Mechanical Ventilator 30 07/25/19 18:00 85 33 119/65 (83) 100 07/25/19 17:30 89 29 121/59 (79) 100 07/25/19 17:00 88 31 115/61 (79) 100 07/25/19 17:00 115/61 07/25/19 17:00 31 115/61 Mechanical Ventilator 30 07/25/19 16:30 83 18 143/91 (108) 99 07/25/19 16:00 35 07/25/19 16:00 99.0 78 18 148/73 (98) 99 07/25/19 16:00 78 18 148/73 (98) 99 07/25/19 16:00 Mechanical Ventilator 07/25/19 16:00 139/65 07/25/19 16:00 18 148/73 Mechanical Ventilator 35 07/25/19 16:00 78 07/25/19 15:30 76 18 144/76 (98) 100 07/25/19 15:18 74 29 100 Mechanical Ventilator 30 81 29 30 07/25/19 15:00 75 27 142/65 (90) 100 07/25/19 15:00 142/65 07/25/19 15:00 27 142/65 Mechanical Ventilator 35 07/25/19 14:30 76 33 134/69 (90) 100 07/25/19 14:00 69 24 128/66 (86) 100 07/25/19 14:00 130/69 07/25/19 14:00 25 130/69 Mechanical Ventilator 35 07/25/19 13:30 73 28 116/61 (79) 100 07/25/19 13:00 74 26 93/53 (66) 100 07/25/19 13:00 116/59 07/25/19 13:00 24 116/59 Mechanical Ventilator 35 07/25/19 12:30 74 26 91/53 (66) 100 07/25/19 12:00 35 07/25/19 12:00 73 07/25/19 12:00 Mechanical Ventilator 07/25/19 12:00 100/56 07/25/19 12:00 28 100/56 Mechanical Ventilator 35 07/25/19 12:00 98.6 74 23 115/65 (82) 100 07/25/19 11:30 73 20 118/65 (82) 100 07/25/19 11:00 98/54 07/25/19 11:00 26 98/54 Mechanical Ventilator 35 07/25/19 11:00 79 25 101/51 (68) 100 07/25/19 10:49 80 26 100 Mechanical Ventilator 30 89 26 30 Height (Feet): 6 Height (Inches): 1.00 Weight (Pounds): 188 HEENT: status post trach Respiratory/Chest: other - on ventilator Cardiovascular: normal rate, other - HD & central line Abdomen: soft, non tender, other - GT feeding Extremities: no edema Neurologic/Psychiatric: disoriented Laboratory Tests Test 07/26/19 05:23 White Blood Count 17.1 K/UL (4.8-10.8) H Red Blood Count 3.14 M/UL (4.70-6.10) L Hemoglobin 9.0 G/DL (14.2-18.0) L Hematocrit 30.9 % (42.0-52.0) L Mean Corpuscular Volume 98 FL (80-99) Mean Corpuscular Hemoglobin 28.7 PG (27.0-31.0) Mean Corpuscular Hemoglobin Concent 29.1 G/DL (32.0-36.0) L Red Cell Distribution Width 17.9 % (11.6-14.8) H Platelet Count 330 K/UL (150-450) Mean Platelet Volume 7.6 FL (6.5-10.1) Neutrophils (%) (Auto) 82.5 % (45.0-75.0) H Lymphocytes (%) (Auto) 7.8 % (20.0-45.0) L Monocytes (%) (Auto) 6.0 % (1.0-10.0) Eosinophils (%) (Auto) 2.8 % (0.0-3.0) Basophils (%) (Auto) 0.8 % (0.0-2.0) Sodium Level 138 MMOL/L (136-145) Potassium Level 3.6 MMOL/L (3.5-5.1) Chloride Level 99 MMOL/L (98-107) Carbon Dioxide Level 23 MMOL/L (21-32) Anion Gap 16 mmol/L (5-15) H Blood Urea Nitrogen 81 mg/dL (7-18) H Creatinine 9.6 MG/DL (0.55-1.30) H Estimat Glomerular Filtration Rate 5.5 mL/min (>60) Glucose Level 202 MG/DL (74-106) H Calcium Level 9.9 MG/DL (8.5-10.1) Phosphorus Level 3.1 MG/DL (2.5-4.9) Magnesium Level 3.0 MG/DL (1.8-2.4) H Total Bilirubin 0.3 MG/DL (0.2-1.0) Direct Bilirubin 0.2 MG/DL (0.0-0.3) Aspartate Amino Transf (AST/SGOT) 19 U/L (15-37) Alanine Aminotransferase (ALT/SGPT) 11 U/L (12-78) L Alkaline Phosphatase 144 U/L (46-116) H Total Protein 7.4 G/DL (6.4-8.2) Albumin 2.5 G/DL (3.4-5.0) L Current Medications Medications (Trade) Dose Ordered Sig/Anthony Route PRN Reason Start Time Stop Time Status Last Admin Dose Admin Acetaminophen (Tylenol) 650 mg Q4H PRN NG For Pain 07/11/19 08:00 08/10/19 07:59 07/25/19 01:30 Albuterol Sulfate (Proventil MDI) 2 puff Q4HRT INH 06/06/19 23:00 08/30/19 18:59 07/26/19 08:03 Chlorhexidine Gluconate (Michelle-Hex 2%) 1 applic DAILY@1999 TOPIC 06/07/19 20:00 09/05/19 19:59 07/25/19 20:02 Dextrose (Dextrose 50%) 25 ml Q30M PRN IV Hypoglycemia 06/20/19 19:30 09/18/19 19:29 Dextrose (Dextrose 50%) 50 ml Q30M PRN IV Hypoglycemia 06/20/19 19:30 8/8/20 19:29 Dopamine HCl/ Dextrose 250 ml @ 0 mls/hr Q24H PRN IV For hypotension 06/13/19 08:15 09/11/19 08:14 07/17/19 08:46 Enoxaparin Sodium (Lovenox) 30 mg DAILY SUBQ 06/07/19 09:00 08/27/19 08:59 07/26/19 08:40 Epoetin Aftab (Epoetin Aftab(ESRD on dialysis)) 10,000 unit SUBQ 06/07/19 21:00 08/31/19 20:59 07/23/19 21:02 Fentanyl Citrate 250 ml @ 0 mls/hr Q24H IV 07/19/19 14:06 10/17/19 14:05 07/25/19 01:29 Haloperidol Lactate 5 mg/ Dextrose 56 ml @ 224 mls/hr Q6H PRN IVPB Agitation 07/11/19 15:00 08/25/19 14:59 07/15/19 02:36 Hydralazine HCl (Apresoline) 10 mg Q4H PRN IV Blood pressure over 160 systol 06/07/19 10:15 09/05/19 10:14 Insulin Aspart (NovoLOG) EVERY 6 HOURS SUBQ 06/21/19 00:00 09/19/19 00:00 07/26/19 05:43 Midodrine (Pro-Amatine) 10 mg Q8HR ORAL 07/17/19 14:00 10/15/19 10:29 07/26/19 05:24 Norepinephrine Bitartrate 8 mg/ Sodium Chloride 250 ml @ 0 mls/hr Q24H IV 07/23/19 16:15 08/22/19 16:14 07/24/19 17:41 Sevelamer Carbonate (Renvela) 2,400 mg Q6HR NG 07/14/19 12:00 10/12/19 13:59 07/26/19 05:23 Vancomycin HCl (Vanco pharmacy to dose) 1 ea DAILY PRN MISC Per rx protocol 07/20/19 10:45 08/19/19 10:44 Ted Leyva MD Jul 26, 2019 10:37
--- NOTE | 2019-07-26 10:41 | Hematology/Onc Progress Note ---
Assessment/Plan Assessment/Plan Assessment and Recs: # Anemia of chronic disease, likely related ot underlying kidney disease has COIVD19++++++ --> hgb trend 9-->8-->7.3-->7.9-->6.8->9.5-->10->8.3-->7.7-->7.1-->8.9->8.8->7.7 -->8.1 ->7.9-->7.7 -->8.2-->8.1 -->7.9-->8.5 -->9->9.2-->9.5-->10.7 -->9.8--> 10.2-->11.8 -->11.9-->8.8 ->9.4->9 --> transfuse as needed, hgb goal >7 --> no evidence of hemolysis --> peripheral smear has been reviewed --> epogen started 3 x a week ==>> transfuse 06/08, 06/15 # Leukocytosis likely related to suspected COVID-19 virus infection --> completed plaquenil --> trend smear as needed --> wbc trend: 4-->11-->14.5-->21-->26-->21->24--.28-->23-->19-->16.2-->21--> 11.2 -->12.5-->12.3-->12.4-->18.5-->18.5-->17->13-->18.2-->22.2-->25-->17.4-->17 --> pulm is aware --> on abx cefepime/vanc->zosyn/vanc-->dom/vanc-->dom-->levaquin/cefepime,--> vanc --> pressors as needed --> 06/27 covid 19++ --> pressors as needed in icu # Thrombocytopenia/Lymphopenia --> likely related to covid19 --> plt 129k-->186k-->251-->285-->384 -->430-->539-->515-->447-->451-->404-->544 -->244 # Respiratory failure with covid19+ --> s/p vent/trach --> weaning # Possible Pneumonia --> abx completed --> 07/13 cxr: Improved right lung infiltrates. # Cardiomegaly # Transaminitis with Elevated AST # COPD # Chronic Kidney Disease --> per renal hd --> s/p right femoral cath 07/02 # Hypertension # Dvt ppx lovenox # peg Appreciate consultation and dw Rn Subjective Constitutional: Denies: no symptoms, chills, fever, malaise, weakness, other HEENT: Denies: no symptoms, eye pain, blurred vision, tearing, double vision, ear pain, ear discharge, nose pain, nose congestion, throat pain, throat swelling, mouth pain, mouth swelling, other Cardiovascular: Denies: no symptoms, chest pain, edema, irregular heart rate, lightheadedness, palpitations, syncope, other Respiratory: Denies: no symptoms, cough, shortness of breath, SOB with excertion, SOB at rest, sputum, wheezing, other Gastrointestinal/Abdominal: Denies: no symptoms, abdomen distended, abdominal pain, black stools, tarry stools, blood in stool, constipated, diarrhea, difficulty swallowing, nausea, poor appetite, poor fluid intake, rectal bleeding , vomiting, other Genitourinary: Denies: no symptoms, burning, discharge, frequency, flank pain, hematuria, incontinence, pain, urgency, other Endocrine: Denies: no symptoms, excessive sweating, flushing, intolerance to cold, intolerance to heat, increased hunger, increased thirst, increased urine, unexplained weight gain, unexplained weight loss, other Allergies: Coded Allergies: No Known Allergies (Unverified , 05/28/19) Subjective 06/01 nv, extremely agitated, not allowing labs draws, no night sweats, cbc ordered 06/02 confused, restraints, on abx and plaquenil, hgb 7.9, nrb 15 L 06/03 is with nonrebreather, but not compliant, remains confused 06/05 no bleeding, labs noted, no major bleeding, otherwise comfortable 06/06 labs reviewed, no bleeding, meds noted, no night sweats, on levo and nonrebreather 06/07 labs noted, no bleeding, meds reviewed, no bleeding, wbc higher 06/08 to get 2 units prbc, no night sweats, meds reviewed 06/09 is on cefepime and vanc, labs noted, ernesto Rn, no bleeding 06/10 no major changes, labs reviewed, wbc 28k, on abx, cefepime 06/12 remains in icu, labs noted, no night sweats or bleeding 06/13 sluggish pupils, remains agitated, per psych, no bleding, on vent, wbc sitll high 06/14 still confused, remains on vent, with ng, running nepro, on pressors 06/15 icu, febrile, non verbal, hgb 7.1, blood pending, completed plaq 06/16 remains in the icu, nonverbal, plan for hd tomorrow, ernesto rn 06/17 in icu, on pressor, nonverbal, on abx, no bleeding 06/19 no bleeding, nonverbal in icu, hgb is 7.7 06/20 on zosyn, tube feeds, vent, labs noted, in icu, nv 06/21 gettng hd as per renal, in icu, nv, no bleeding, tfs 06/22 icu, cxr with slight improvement, cooling blanket, weaning today 06/23 wewaning, in icu, on vent, abx, and pressors as needed, labs noted 06/24 failed weaning, off abx, completed plaquenil, hgb 8.1 06/26 icu, weaning for this am, afebrile, hgb 8 06/27 in icu, remains comotose, weaning started on peep, no night sweats 06/28 weaning today, off abx, restraints, no distress, h/h stable 06/29 covid 19+, failed weaning, no blood transfusion needed 06/30 icu, on vent, labs reviewed, no distress 07/01 in icu, may need trach, remains on hd per renal, labs noted 07/02 s/p right fem cath, failed wean, no new orders, h/h stable 07/03 is somewhat more responsive, on abx, no bleeding, weaning and HD today 07/04 hd as per renal, weaning off vent, no bleeding today 07/05 obtunded, no bleding overnight, with hd for tomorrow noted, vanc 07/08 no events, remains with trach/vent, ernesto Rn, no bleeding, cbc is noted 07/09 no overnight events, peg for friday pending consent 07/10 off pressors, vent, restraints, labs reviewed 07/11 no acute events is on pressors, intubated, agitated still 07/12 is resting comfortably, no bleeding, emds reviewed and noted 07/13 icu, no events, trach, cxr reviewed, 07/14 is onv ent, tachypneic and tachycardic, labs noted 07/15 remains confused, intubated, ernesto Rn, no bleeding 07/17 icu, cxr improving infiltrates, levo gtt, airborne/contact isolation 07/18 is on broad spectrum abx, is on levaquin and cefepime, wbc 16 agitated 07/19 icu, levo gtt, cxr unchanged, tachy, hd thursday 07/20 sedated, safety restraints, labs reviewed 07/21 hd was done yesterday, lower pressor requirements, wbc is worse, on abx 07/22 icu, meds and labs reviewed, vent, no distress 07/24 on vent, in icu, labs noted, remains agitated, and confused 07/25 remains obtunded, on vent, on pressor, hgb 9, wbc elev Objective Objective Current Medications Medications (Trade) Dose Ordered Sig/Anthony Route PRN Reason Start Time Stop Time Status Last Admin Dose Admin Acetaminophen (Tylenol) 650 mg Q4H PRN NG For Pain 07/11/19 08:00 08/10/19 07:59 07/25/19 01:30 Albuterol Sulfate (Proventil MDI) 2 puff Q4HRT INH 06/06/19 23:00 08/30/19 18:59 07/26/19 08:03 Chlorhexidine Gluconate (Michelle-Hex 2%) 1 applic DAILY@1999 TOPIC 06/07/19 20:00 09/05/19 19:59 07/25/19 20:02 Dextrose (Dextrose 50%) 25 ml Q30M PRN IV Hypoglycemia 06/20/19 19:30 09/18/19 19:29 Dextrose (Dextrose 50%) 50 ml Q30M PRN IV Hypoglycemia 06/20/19 19:30 09/18/19 19:29 Dopamine HCl/ Dextrose 250 ml @ 0 mls/hr Q24H PRN IV For hypotension 06/13/19 08:15 09/11/19 08:14 07/17/19 08:46 Enoxaparin Sodium (Lovenox) 30 mg DAILY SUBQ 06/07/19 09:00 08/27/19 08:59 07/26/19 08:40 Epoetin Aftab (Epoetin Aftab(ESRD on dialysis)) 10,000 unit SUBQ 06/07/19 21:00 08/31/19 20:59 07/23/19 21:02 Fentanyl Citrate 250 ml @ 0 mls/hr Q24H IV 07/19/19 14:06 10/17/19 14:05 07/25/19 01:29 Haloperidol Lactate 5 mg/ Dextrose 56 ml @ 224 mls/hr Q6H PRN IVPB Agitation 07/11/19 15:00 08/25/19 14:59 07/15/19 02:36 Hydralazine HCl (Apresoline) 10 mg Q4H PRN IV Blood pressure over 160 systol 06/07/19 10:15 09/05/19 10:14 Insulin Aspart (NovoLOG) EVERY 6 HOURS SUBQ 06/21/19 00:00 09/19/19 00:00 07/26/19 05:43 Midodrine (Pro-Amatine) 10 mg Q8HR ORAL 07/17/19 14:00 10/15/19 10:29 07/26/19 05:24 Norepinephrine Bitartrate 8 mg/ Sodium Chloride 250 ml @ 0 mls/hr Q24H IV 07/23/19 16:15 08/22/19 16:14 07/24/19 17:41 Sevelamer Carbonate (Renvela) 2,400 mg Q6HR NG 07/14/19 12:00 10/12/19 13:59 07/26/19 05:23 Vancomycin HCl ([facility] pharmacy to dose) 1 ea DAILY PRN MISC Per rx protocol 07/20/19 10:45 08/19/19 10:44 Last 24 Hour Vital Signs Date Time Temp Pulse Resp B/P (MAP) Pulse Ox O2 Delivery O2 Flow Rate FiO2 07/26/19 09:00 91 27 135/77 (96) 100 07/26/19 08:30 87 22 130/73 (92) 100 07/26/19 08:00 99.1 85 31 127/66 (86) 100 07/26/19 08:00 30 07/26/19 08:00 Mechanical Ventilator 07/26/19 07:30 85 27 120/80 (93) 100 07/26/19 07:11 84 30 100 Mechanical Ventilator 30 88 28 30 07/26/19 07:00 91 26 128/67 (87) 100 07/26/19 07:00 128/67 07/26/19 07:00 26 128/67 Mechanical Ventilator 30 07/26/19 06:30 144/74 07/26/19 06:30 90 28 07/26/19 06:00 111/61 07/26/19 06:00 26 111/61 Mechanical Ventilator 30 07/26/19 06:00 89 26 111/61 (78) 100 07/26/19 05:00 87 26 111/60 (77) 100 07/26/19 05:00 111/60 07/26/19 05:00 26 111/60 Mechanical Ventilator 30 07/26/19 04:00 Mechanical Ventilator 07/26/19 04:00 79 07/26/19 04:00 116/65 07/26/19 04:00 30 116/65 Mechanical Ventilator 40 07/26/19 04:00 99.2 86 30 116/65 (82) 100 07/26/19 04:00 30 07/26/19 03:37 89 32 100 Mechanical Ventilator 30 91 33 30 07/26/19 03:00 79 29 110/63 (79) 100 07/26/19 03:00 110/63 07/26/19 03:00 29 110/63 Mechanical Ventilator 30 07/26/19 02:00 86 30 127/64 (85) 100 07/26/19 02:00 127/64 07/26/19 02:00 30 127/64 Mechanical Ventilator 30 07/26/19 01:00 118/59 07/26/19 01:00 31 118/59 Mechanical Ventilator 30 07/26/19 01:00 82 31 118/59 (78) 100 07/26/19 00:00 Mechanical Ventilator 07/26/19 00:00 82 07/26/19 00:00 99.5 87 32 121/63 (82) 100 07/26/19 00:00 121/63 07/26/19 00:00 32 121/63 Mechanical Ventilator 30 07/26/19 00:00 30 07/25/19 23:56 91 31 100 Mechanical Ventilator 30 93 28 30 07/25/19 23:00 129/72 07/25/19 23:00 27 129/72 Mechanical Ventilator 30 07/25/19 23:00 84 27 129/72 (91) 100 07/25/19 22:00 82 30 128/63 (84) 100 07/25/19 22:00 128/68 07/25/19 22:00 30 128/68 Mechanical Ventilator 30 07/25/19 21:00 116/66 07/25/19 21:00 28 116/66 Mechanical Ventilator 30 07/25/19 21:00 78 28 116/66 (83) 100 07/25/19 20:11 78 27 100 Mechanical Ventilator 30 78 28 30 07/25/19 20:00 30 07/25/19 20:00 109/68 07/25/19 20:00 27 109/68 Mechanical Ventilator 30 07/25/19 20:00 99.0 77 27 109/68 (82) 100 07/25/19 20:00 84 07/25/19 20:00 Mechanical Ventilator 07/25/19 19:00 115/67 07/25/19 19:00 27 115/61 Mechanical Ventilator 30 07/25/19 19:00 81 27 115/61 (79) 100 07/25/19 18:30 85 31 101/58 (72) 100 07/25/19 18:00 99/56 07/25/19 18:00 30 99/56 Mechanical Ventilator 30 07/25/19 18:00 85 33 119/65 (83) 100 07/25/19 17:30 89 29 121/59 (79) 100 07/25/19 17:00 88 31 115/61 (79) 100 07/25/19 17:00 115/61 07/25/19 17:00 31 115/61 Mechanical Ventilator 30 07/25/19 16:30 83 18 143/91 (108) 99 07/25/19 16:00 35 07/25/19 16:00 99.0 78 18 148/73 (98) 99 07/25/19 16:00 78 18 148/73 (98) 99 07/25/19 16:00 Mechanical Ventilator 07/25/19 16:00 139/65 07/25/19 16:00 18 148/73 Mechanical Ventilator 35 07/25/19 16:00 78 07/25/19 15:30 76 18 144/76 (98) 100 07/25/19 15:18 74 29 100 Mechanical Ventilator 30 81 29 30 07/25/19 15:00 75 27 142/65 (90) 100 07/25/19 15:00 142/65 07/25/19 15:00 27 142/65 Mechanical Ventilator 35 07/25/19 14:30 76 33 134/69 (90) 100 07/25/19 14:00 69 24 128/66 (86) 100 07/25/19 14:00 130/69 07/25/19 14:00 25 130/69 Mechanical Ventilator 35 07/25/19 13:30 73 28 116/61 (79) 100 07/25/19 13:00 74 26 93/53 (66) 100 07/25/19 13:00 116/59 07/25/19 13:00 24 116/59 Mechanical Ventilator 35 07/25/19 12:30 74 26 91/53 (66) 100 07/25/19 12:00 35 07/25/19 12:00 73 07/25/19 12:00 Mechanical Ventilator 07/25/19 12:00 100/56 07/25/19 12:00 28 100/56 Mechanical Ventilator 35 07/25/19 12:00 98.6 74 23 115/65 (82) 100 07/25/19 11:30 73 20 118/65 (82) 100 07/25/19 11:00 98/54 07/25/19 11:00 26 98/54 Mechanical Ventilator 35 07/25/19 11:00 79 25 101/51 (68) 100 07/25/19 10:49 80 26 100 Mechanical Ventilator 30 89 26 30 07/25/19 10:30 79 27 100/52 (68) 100 07/25/19 10:00 78 11 104/54 (71) 100 07/25/19 10:00 100/52 07/25/19 10:00 20 100/52 Mechanical Ventilator 35 07/25/19 09:30 79 26 126/61 (82) 100 07/25/19 09:00 76 30 114/60 (78) 100 07/25/19 09:00 118/70 07/25/19 09:00 29 118/70 Mechanical Ventilator 35 07/25/19 08:30 119/61 07/25/19 08:30 27 119/61 Mechanical Ventilator 35 07/25/19 08:30 73 21 111/57 (75) 100 07/25/19 08:00 35 07/25/19 08:00 29 108/56 Mechanical Ventilator 35 07/25/19 08:00 83 07/25/19 08:00 99.1 73 27 109/53 (71) 100 07/25/19 08:00 Mechanical Ventilator 07/25/19 07:30 76 27 116/62 (80) 100 07/25/19 07:24 100 07/25/19 07:20 74 27 100 Mechanical Ventilator 30 77 26 30 07/25/19 07:00 77 23 116/66 (83) 100 07/25/19 07:00 116/66 07/25/19 07:00 26 116/66 Mechanical Ventilator 35 07/25/19 06:45 67 29 88/52 (64) 100 07/25/19 06:30 68 29 93/51 (65) 100 07/25/19 06:15 69 34 89/52 (64) 100 07/25/19 06:00 68 24 07/25/19 06:00 98/52 07/25/19 06:00 26 98/52 Mechanical Ventilator 35 07/25/19 06:00 73 26 98/52 (67) 100 07/25/19 05:45 75 27 115/62 (79) 100 07/25/19 05:30 71 27 100/53 (69) 100 07/25/19 05:15 71 27 113/61 (78) 100 07/25/19 05:00 95/53 07/25/19 05:00 28 95/53 Mechanical Ventilator 35 07/25/19 05:00 71 27 95/53 (67) 100 07/25/19 04:45 76 24 118/61 (80) 100 07/25/19 04:30 78 22 104/55 (71) 100 07/25/19 04:15 77 31 88/51 (63) 100 07/25/19 04:06 76 26 90/52 (65) 100 07/25/19 04:00 98.4 77 26 80/46 (57) 100 07/25/19 04:00 35 07/25/19 04:00 84/46 07/25/19 04:00 29 84/46 Mechanical Ventilator 35 07/25/19 04:00 Mechanical Ventilator 07/25/19 03:45 81 26 108/53 (71) 100 07/25/19 03:30 78 24 90/51 (64) 100 07/25/19 03:30 80 26 100 Mechanical Ventilator 30 82 27 30 07/25/19 03:19 79 07/25/19 03:15 80 26 93/51 (65) 100 07/25/19 03:00 104/61 07/25/19 03:00 26 104/61 Mechanical Ventilator 35 07/25/19 03:00 86 29 104/61 (75) 100 07/25/19 02:45 88 26 117/55 (75) 95 07/25/19 02:30 77 29 117/63 (81) 100 07/25/19 02:15 76 26 104/56 (72) 100 07/25/19 02:00 79 28 109/55 (73) 100 07/25/19 02:00 109/55 07/25/19 02:00 27 109/55 Mechanical Ventilator 35 07/25/19 01:45 74 29 125/73 (90) 100 07/25/19 01:30 75 24 129/67 (87) 100 07/25/19 01:29 27 133/85 Mechanical Ventilator 35 07/25/19 01:15 69 33 104/59 (74) 100 07/25/19 01:00 70 29 98/58 (71) 100 07/25/19 01:00 98/58 07/25/19 01:00 30 98/58 Mechanical Ventilator 35 07/25/19 00:45 71 27 99/54 (69) 100 07/25/19 00:30 72 27 109/62 (78) 100 07/25/19 00:15 70 29 114/65 (81) 100 07/25/19 00:00 114/65 07/25/19 00:00 27 114/65 Mechanical Ventilator 35 07/25/19 00:00 100.1 73 25 92/57 (69) 100 07/25/19 00:00 Mechanical Ventilator 07/24/19 23:45 76 30 127/60 (82) 100 07/24/19 23:30 75 27 100 Mechanical Ventilator 30 76 28 30 07/24/19 23:30 73 26 104/53 (70) 100 07/24/19 23:15 76 29 123/59 (80) 100 07/24/19 23:05 79 07/24/19 23:00 123/59 07/24/19 23:00 26 123/59 Mechanical Ventilator 35 07/24/19 23:00 75 26 122/59 (80) 100 07/24/19 22:45 70 27 129/62 (84) 100 07/24/19 22:30 74 28 123/58 (79) 100 07/24/19 22:15 77 26 113/54 (73) 100 07/24/19 22:00 113/54 07/24/19 22:00 26 113/54 Mechanical Ventilator 35 07/24/19 22:00 75 25 123/59 (80) 100 07/24/19 21:45 76 28 113/55 (74) 100 07/24/19 21:30 76 26 137/62 (87) 100 07/24/19 21:15 73 29 114/56 (75) 100 07/24/19 21:00 76 23 132/60 (84) 100 07/24/19 21:00 114/56 07/24/19 21:00 26 114/56 Mechanical Ventilator 35 07/24/19 20:45 74 24 143/64 (90) 100 07/24/19 20:30 70 28 113/56 (75) 100 07/24/19 20:15 73 25 110/57 (74) 100 07/24/19 20:00 Mechanical Ventilator 07/24/19 20:00 110/57 07/24/19 20:00 25 110/57 Mechanical Ventilator 35 07/24/19 20:00 35 07/24/19 20:00 99.5 74 26 120/62 (81) 100 07/24/19 19:45 73 30 113/63 (80) 100 07/24/19 19:41 75 07/24/19 19:30 76 27 100 Mechanical Ventilator 30 78 27 30 07/24/19 19:30 77 24 110/61 (77) 100 07/24/19 19:15 71 26 100/54 (69) 100 07/24/19 19:00 100/54 07/24/19 19:00 26 100/54 Mechanical Ventilator 35 07/24/19 19:00 77 26 108/56 (73) 100 07/24/19 18:30 74 27 101/58 (72) 100 07/24/19 18:00 78 23 125/64 (84) 100 07/24/19 18:00 111/61 07/24/19 18:00 24 111/61 Mechanical Ventilator 35 07/24/19 17:41 112/64 07/24/19 17:30 78 23 119/68 (85) 100 07/24/19 17:00 111/60 07/24/19 17:00 26 111/60 Mechanical Ventilator 35 07/24/19 17:00 74 29 98/57 (71) 100 07/24/19 16:30 75 26 92/52 (65) 100 07/24/19 16:00 75 07/24/19 16:00 35 07/24/19 16:00 Mechanical Ventilator 07/24/19 16:00 93/53 07/24/19 16:00 26 93/53 Mechanical Ventilator 35 07/24/19 16:00 98.4 79 27 110/59 (76) 100 07/24/19 15:30 83 12 117/84 (95) 94 07/24/19 15:12 84 28 100 Mechanical Ventilator 30 75 26 30 07/24/19 15:00 73 26 103/55 (71) 100 07/24/19 15:00 117/61 07/24/19 15:00 26 117/61 Mechanical Ventilator 35 07/24/19 14:30 73 25 113/54 (73) 100 07/24/19 14:00 101/53 07/24/19 14:00 29 101/53 Mechanical Ventilator 35 07/24/19 14:00 73 27 101/53 (69) 100 07/24/19 13:30 74 26 100/62 (75) 100 07/24/19 13:00 72 28 101/62 (75) 100 07/24/19 13:00 100/62 07/24/19 13:00 27 100/62 Mechanical Ventilator 35 07/24/19 12:30 75 26 104/60 (75) 100 07/24/19 12:00 98.4 77 28 102/53 (69) 100 07/24/19 12:00 74 07/24/19 12:00 89/51 07/24/19 12:00 26 89/51 Mechanical Ventilator 35 07/24/19 12:00 35 07/24/19 12:00 Mechanical Ventilator 07/24/19 11:30 78 26 93/55 (68) 100 07/24/19 11:09 71 26 100 Mechanical Ventilator 30 70 28 30 07/24/19 11:00 92/54 07/24/19 11:00 26 92/54 Mechanical Ventilator 40 07/24/19 11:00 75 24 142/70 (94) 100 07/24/19 10:45 142/70 Intake and Output 07/25/19 07/26/19 19:00 07:00 Intake Total 690.57 ml 581.54 ml Balance 690.57 ml 581.54 ml Free Water 150 ml 50 ml IV Total 120.57 ml 111.54 ml Tube Feeding 420 ml 420 ml # Bowel Movements 2 2 Labs Test 07/24/19 03:30 07/25/19 04:00 07/26/19 05:23 White Blood Count 17.9 K/UL (4.8-10.8) 16.8 K/UL (4.8-10.8) 17.1 K/UL (4.8-10.8) Red Blood Count 3.26 M/UL (4.70-6.10) 3.24 M/UL (4.70-6.10) 3.14 M/UL (4.70-6.10) Hemoglobin 9.6 G/DL (14.2-18.0) 9.4 G/DL (14.2-18.0) 9.0 G/DL (14.2-18.0) Hematocrit 31.0 % (42.0-52.0) 31.9 % (42.0-52.0) 30.9 % (42.0-52.0) Mean Corpuscular Volume 95 FL (80-99) 98 FL (80-99) 98 FL (80-99) Mean Corpuscular Hemoglobin 29.6 PG (27.0-31.0) 28.9 PG (27.0-31.0) 28.7 PG (27.0-31.0) Mean Corpuscular Hemoglobin Concent 31.1 G/DL (32.0-36.0) 29.4 G/DL (32.0-36.0) 29.1 G/DL (32.0-36.0) Red Cell Distribution Width 16.5 % (11.6-14.8) 18.6 % (11.6-14.8) 17.9 % (11.6-14.8) Platelet Count 229 K/UL (150-450) 271 K/UL (150-450) 330 K/UL (150-450) Mean Platelet Volume 7.7 FL (6.5-10.1) 8.4 FL (6.5-10.1) 7.6 FL (6.5-10.1) Neutrophils (%) (Auto) 83.7 % (45.0-75.0) 83.1 % (45.0-75.0) 82.5 % (45.0-75.0) Lymphocytes (%) (Auto) 6.8 % (20.0-45.0) 8.0 % (20.0-45.0) 7.8 % (20.0-45.0) Monocytes (%) (Auto) 5.6 % (1.0-10.0) 6.1 % (1.0-10.0) 6.0 % (1.0-10.0) Eosinophils (%) (Auto) 3.3 % (0.0-3.0) 2.2 % (0.0-3.0) 2.8 % (0.0-3.0) Basophils (%) (Auto) 0.5 % (0.0-2.0) 0.6 % (0.0-2.0) 0.8 % (0.0-2.0) Sodium Level 138 MMOL/L (136-145) 140 MMOL/L (136-145) 138 MMOL/L (136-145) Potassium Level 3.6 MMOL/L (3.5-5.1) 3.7 MMOL/L (3.5-5.1) 3.6 MMOL/L (3.5-5.1) Chloride Level 98 MMOL/L (98-107) 98 MMOL/L (98-107) 99 MMOL/L (98-107) Carbon Dioxide Level 28 MMOL/L (21-32) 26 MMOL/L (21-32) 23 MMOL/L (21-32) Anion Gap 12 mmol/L (5-15) 16 mmol/L (5-15) 16 mmol/L (5-15) Blood Urea Nitrogen 55 mg/dL (7-18) 70 mg/dL (7-18) 81 mg/dL (7-18) Creatinine 7.3 MG/DL (0.55-1.30) 8.3 MG/DL (0.55-1.30) 9.6 MG/DL (0.55-1.30) Estimat Glomerular Filtration Rate 7.5 mL/min (>60) 6.5 mL/min (>60) 5.5 mL/min (>60) Glucose Level 160 MG/DL (74-106) 175 MG/DL (74-106) 202 MG/DL (74-106) Calcium Level 9.0 MG/DL (8.5-10.1) 9.4 MG/DL (8.5-10.1) 9.9 MG/DL (8.5-10.1) Total Bilirubin 0.4 MG/DL (0.2-1.0) 0.5 MG/DL (0.2-1.0) 0.3 MG/DL (0.2-1.0) Aspartate Amino Transf (AST/SGOT) 18 U/L (15-37) 15 U/L (15-37) 19 U/L (15-37) Alanine Aminotransferase (ALT/SGPT) 11 U/L (12-78) 6 U/L (12-78) 11 U/L (12-78) Alkaline Phosphatase 115 U/L (46-116) 134 U/L (46-116) 144 U/L (46-116) Total Protein 8.5 G/DL (6.4-8.2) 8.0 G/DL (6.4-8.2) 7.4 G/DL (6.4-8.2) Albumin 3.1 G/DL (3.4-5.0) 2.7 G/DL (3.4-5.0) 2.5 G/DL (3.4-5.0) Globulin 5.4 g/dL 5.3 g/dL Albumin/Globulin Ratio 0.6 (1.0-2.7) 0.5 (1.0-2.7) Random Vancomycin Level 19.9 ug/mL Phosphorus Level 2.9 MG/DL (2.5-4.9) 3.1 MG/DL (2.5-4.9) Magnesium Level 3.0 MG/DL (1.8-2.4) Direct Bilirubin 0.2 MG/DL (0.0-0.3) Height (Feet): 6 Height (Inches): 1.00 Weight (Pounds): 188 Objective General: nv, confused, sedated Heent: bilateral eye normal inspection, bilateral eye PERRL ++Ng Respiratory: normal breath sounds, no respiratory distress, intubated/vent +++ trach+++ Cardiovascular: regular rate, rhythm, no edema Gastrointestinal: normal inspection, soft, non-distended, peg+ Rectal: deferred Musculoskeletal: normal range of motion, non-tender, R fem cath++ Neurologic: alert, motor strength/tone normal, sensory intact, responsive, speech normal Skin: Decubitus/Ulcer - See RN skin exam. : jamaal+ Greg Cabral MD Jul 26, 2019 10:41
--- NOTE | 2019-07-26 11:55 | Nephrology Progress Note ---
Assessment/Plan Problem List: (1) CASSANDRA (acute kidney injury) (2) Anemia in chronic kidney disease (CKD) (3) HTN (hypertension) (4) COVID-19 Assessment Acute renal failure most likely superimposed on chronic kidney disease Suspected COVID-19 virus infection Possible Pneumonia, lymphopenia, elevated AST Cardiomegaly, possible CHF COPD Hypertension Anemia, most likely related to chronic kidney disease Plan July 25: Lab reviewed. Dialysis today. Discussed with RN. July 24: Lab reviewed. Do dialysis tomorrow. Discussed with RN. July 23: Lab reviewed. Dialyzed yesterday. Discussed with RN. Remains full code. Next dialysis July 25. Will check labs tomorrow. July 22: Labs reviewed. Due for dialysis today. Discussed with RN. Watch borderline low blood pressure. Discussed with dialysis nurse. July 21: Today's lab reviewed. Will arrange for dialysis tomorrow. Discussed with RN. Aim to keep the blood pressure above 100 systolic. Continue per consultants. July 20: Patient was dialyzed yesterday. Could not ultrafiltrate much due to low blood pressure. Discussed with SHANIQUE Dick today. No labs drawn today. Continue per consultants. July 19: Due for dialysis today. Discussed with SHANIQUE Dick. Continue per consultants. July 18: Dialyzed July 16. Will order dialysis tomorrow July 19. Continues to be on ventilator through trach. No labs done today. Continue per consultants. July 17: Dialyzed yesterday. Stable from renal standpoint of view. Remains full code. Status post trach on vent. Status post PEG. Continue per consultants. July 16: Dialysis today. Will resume Midodrin to prevent hypotension. Patient remains full code. July 15: Dialyzed yesterday, due for dialysis tomorrow. Labs and medication list reviewed. Continue per consultants. Patient remains full code. COVID-19 detected again. July 14: Patient currently on dialysis. This is continuation of dialysis from yesterday as yesterday's dialysis was cut short due to catheter malfunction. Labs and medication reviewed. Continue per consultants. July 13: Patient currently on hemodialysis. The dialysis catheter which is a intrajugular Kamlesh has poor flow. Will try TPA. Continue per consultants. July 12: Due for PEG today. Due for dialysis tomorrow. Continue per consultants. Discussed with RN. July 11: Plan for dialysis today. Discussed with RN. Data reviewed. July 10: Plan for dialysis tomorrow July 11. Waiting for consent to proceed with PEG. Continue per consultants. Medication reviewed. Labs reviewed. Discussed with RN. July 09: Dialyzed yesterday. Labs reviewed. Medication reviewed. Next hemodialysis July 11. July 08: Patient has tracheostomy now. Connected to ventilator. Due for dialysis today. Continue per consultants. Discussed with SHANIUQE Romero. July 07: Patient is due for tracheostomy today. Patient was last dialyzed July 05. Will order dialysis for tomorrow. July 06: Patient is intubated on ventilator however the plan is to extubate today. Patient was dialysis yesterday July 05. The dialysis time was cut short due to patient's respiratory distress. Only 1 L was removed during dialysis yesterday. Today's lab reviewed. Continue per consultants. Will arrange for dialysis as needed. July 05: Patient due for dialysis today. Remains intubated. Will schedule permacath placement in a.m. blood cultures on July 04 are negative. July 04: Patient was dialyzed yesterday. Due for dialysis tomorrow. Continues to be intubated. After tomorrow's dialysis will order a permacath. July 03: Dialysis is about to be started now Continues to be intubated Will plan to remove the femoral dialysis catheter and exchanged for a new temporary catheter per ID recommendation We will check surveillance blood culture tomorrow July 02: Patient was dialyzed yesterday and due for dialysis tomorrow Stable from renal standpoint W on dialysis Continue per consultants, weaning....... etc. July 01: Dialysis today Other status unchanged June 30: Due for dialysis tomorrow Remains intubated on ventilator Labs and medication reviewed Discussed with RN Stable from renal standpoint of view June 29: Dialyzed yesterday Due for dialysis tomorrow Stable from renal standpoint to view Keeps failing weaning process June 28: Patient due for dialysis today Stable from renal standpoint to view Continue per consultants June 27: Labs reviewed Due due for dialysis June 28 Discussed with SHANIQUE Dick Continue per consultants Remains intubated on ventilator June 26 Labs reviewed Dialyzed yesterday Started on weaning today Continue to monitor renal parameters June 16: On dialysis now Potassium supplement implemented Continue per consultants Next dialysis June 27June 15: Status unchanged Dialyzed yesterday will dialyze again tomorrow Potassium supplements given Discussed with RN May 14: Due dialysis today Status: Remains intubated on ventilator June 22: Status unchanged Dialyzed yesterday and duefordialysistomorrow Serum sodium stable today June 21 Remains intubated on ventilator Due dialysis today Emphasized high sodium bath for dialysis June 20: Remains intubated on ventilator Dialyzed June 19 next dialysis June 21 Serum sodium 128, will give 250 cc 3% saline Remains full code Discussed with RN Iron panel ordered June 19: Discussed with RN. Patient due for dialysis today. Continue pulmonary support. Remains full code. June 18: Patient dialyzed yesterday June 17 Serum sodium improved but still low Arrange for dialysis tomorrow June 19 Continue per consultants June 17: Due for dialysis today Today's lab reviewed, low serum sodium noted, Emphasized on high sodium bath to dialysis nurse Discussed with SHANIQUE Yuen June 16: Dialyzed yesterday Remains intubated Labs reviewed, serum sodium 131 Plan to dialyze tomorrow June 17 with high sodium bath Discussed with SHANIQUE Yuen June 15: Due for dialysis today Labs reviewed Discussed with RN Transfuse 1 unit of packed RBCs today for low hemoglobin of 7.1 June 5: Blood pressure well maintained Receive dialysis June 13 next hemodialysis June 15June 4: Discussed with RN in ICU Patient did not receive proper dialysis yesterday due to dialysis catheter malfunction Catheter to be adjusted today and dialyzed to be resumed today Continue per consultants Positive for COVID 28 June 2: Patient now intubated on mechanical ventilation Discussed with SHANIQUE Yuen, today June 12 Patient received dialysis yesterday June 10 next hemodialysis June 12 Blood pressure better maintained Today's labs reviewed Continue per consultants Previously patient received dialysis last evening June 05, next dialysis June 07 which was incomplete due to patient's hypotension Will start on midodrine for blood pressure support. Meanwhile continue other pressors as needed Previously Patient is doing poorly, septic, white blood cells are rising, Hypotension somewhat improved We will keep n.p.o. , NG tube for medications, and change medication to IV as needed Patient remains full code Monitor vancomycin level Previously: Patient pulled out his femoral catheter yesterday June 03 which was reinserted by Dr. Mast Patient scheduled for dialysis again June 04, which again was not done due to dialysis nurse citing catheter malfunction Meanwhile continue management per ID, pulmonary , and psych. Meanwhile white blood cell count is rising. Patient blood pressure borderline low. Will check ABG Previously May 31 : I believe patient need dialysis treatment He however needs to competency assessment if can make decisions or not I will communicate with Dr. Mulligan Previously: Per pulmonary and ID advice Adjust blood pressure medication Renal diet Anemia work-up 2D echocardiogram refused Kidney ultrasound refused Jules catheter Urine studies Per orders Subjective ROS Limited/Unobtainable: Yes Objective Objective Last 24 Hour Vital Signs Date Time Temp Pulse Resp B/P (MAP) Pulse Ox O2 Delivery O2 Flow Rate FiO2 07/26/19 11:25 97 30 100 Mechanical Ventilator 30 101 31 30 07/26/19 09:00 91 27 135/77 (96) 100 07/26/19 08:30 87 22 130/73 (92) 100 07/26/19 08:00 99.1 85 31 127/66 (86) 100 07/26/19 08:00 30 07/26/19 08:00 Mechanical Ventilator 07/26/19 07:30 85 27 120/80 (93) 100 07/26/19 07:11 84 30 100 Mechanical Ventilator 30 88 28 30 07/26/19 07:00 91 26 128/67 (87) 100 07/26/19 07:00 128/67 07/26/19 07:00 26 128/67 Mechanical Ventilator 30 07/26/19 06:30 144/74 07/26/19 06:30 90 28 07/26/19 06:00 111/61 07/26/19 06:00 26 111/61 Mechanical Ventilator 30 07/26/19 06:00 89 26 111/61 (78) 100 07/26/19 05:00 87 26 111/60 (77) 100 07/26/19 05:00 111/60 07/26/19 05:00 26 111/60 Mechanical Ventilator 30 07/26/19 04:00 Mechanical Ventilator 07/26/19 04:00 79 07/26/19 04:00 116/65 07/26/19 04:00 30 116/65 Mechanical Ventilator 40 07/26/19 04:00 99.2 86 30 116/65 (82) 100 07/26/19 04:00 30 07/26/19 03:37 89 32 100 Mechanical Ventilator 30 91 33 30 07/26/19 03:00 79 29 110/63 (79) 100 07/26/19 03:00 110/63 07/26/19 03:00 29 110/63 Mechanical Ventilator 30 07/26/19 02:00 86 30 127/64 (85) 100 07/26/19 02:00 127/64 07/26/19 02:00 30 127/64 Mechanical Ventilator 30 07/26/19 01:00 118/59 07/26/19 01:00 31 118/59 Mechanical Ventilator 30 07/26/19 01:00 82 31 118/59 (78) 100 07/26/19 00:00 Mechanical Ventilator 07/26/19 00:00 82 07/26/19 00:00 99.5 87 32 121/63 (82) 100 07/26/19 00:00 121/63 07/26/19 00:00 32 121/63 Mechanical Ventilator 30 07/26/19 00:00 30 07/25/19 23:56 91 31 100 Mechanical Ventilator 30 93 28 30 07/25/19 23:00 129/72 07/25/19 23:00 27 129/72 Mechanical Ventilator 30 07/25/19 23:00 84 27 129/72 (91) 100 07/25/19 22:00 82 30 128/63 (84) 100 07/25/19 22:00 128/68 07/25/19 22:00 30 128/68 Mechanical Ventilator 30 07/25/19 21:00 116/66 07/25/19 21:00 28 116/66 Mechanical Ventilator 30 07/25/19 21:00 78 28 116/66 (83) 100 07/25/19 20:11 78 27 100 Mechanical Ventilator 30 78 28 30 07/25/19 20:00 30 07/25/19 20:00 109/68 07/25/19 20:00 27 109/68 Mechanical Ventilator 30 07/25/19 20:00 99.0 77 27 109/68 (82) 100 07/25/19 20:00 84 07/25/19 20:00 Mechanical Ventilator 07/25/19 19:00 115/67 07/25/19 19:00 27 115/61 Mechanical Ventilator 30 07/25/19 19:00 81 27 115/61 (79) 100 07/25/19 18:30 85 31 101/58 (72) 100 07/25/19 18:00 99/56 07/25/19 18:00 30 99/56 Mechanical Ventilator 30 07/25/19 18:00 85 33 119/65 (83) 100 07/25/19 17:30 89 29 121/59 (79) 100 07/25/19 17:00 88 31 115/61 (79) 100 07/25/19 17:00 115/61 07/25/19 17:00 31 115/61 Mechanical Ventilator 30 07/25/19 16:30 83 18 143/91 (108) 99 07/25/19 16:00 35 07/25/19 16:00 99.0 78 18 148/73 (98) 99 07/25/19 16:00 78 18 148/73 (98) 99 07/25/19 16:00 Mechanical Ventilator 07/25/19 16:00 139/65 07/25/19 16:00 18 148/73 Mechanical Ventilator 35 07/25/19 16:00 78 07/25/19 15:30 76 18 144/76 (98) 100 07/25/19 15:18 74 29 100 Mechanical Ventilator 30 81 29 30 07/25/19 15:00 75 27 142/65 (90) 100 07/25/19 15:00 142/65 07/25/19 15:00 27 142/65 Mechanical Ventilator 35 07/25/19 14:30 76 33 134/69 (90) 100 07/25/19 14:00 69 24 128/66 (86) 100 07/25/19 14:00 130/69 07/25/19 14:00 25 130/69 Mechanical Ventilator 35 07/25/19 13:30 73 28 116/61 (79) 100 07/25/19 13:00 74 26 93/53 (66) 100 07/25/19 13:00 116/59 07/25/19 13:00 24 116/59 Mechanical Ventilator 35 07/25/19 12:30 74 26 91/53 (66) 100 07/25/19 12:00 35 07/25/19 12:00 73 07/25/19 12:00 Mechanical Ventilator 07/25/19 12:00 100/56 07/25/19 12:00 28 100/56 Mechanical Ventilator 35 07/25/19 12:00 98.6 74 23 115/65 (82) 100 Intake and Output 07/25/19 07/26/19 19:00 07:00 Intake Total 690.57 ml 581.54 ml Balance 690.57 ml 581.54 ml Free Water 150 ml 50 ml IV Total 120.57 ml 111.54 ml Tube Feeding 420 ml 420 ml # Bowel Movements 2 2 Laboratory Tests 07/26/19 05:23: White Blood Count 17.1H, Red Blood Count 3.14L, Hemoglobin 9.0L, Hematocrit 30.9L, Mean Corpuscular Volume 98, Mean Corpuscular Hemoglobin 28.7, Mean Corpuscular Hemoglobin Concent 29.1L, Red Cell Distribution Width 17.9H, Platelet Count 330, Mean Platelet Volume 7.6, Neutrophils (%) (Auto) 82.5H, Lymphocytes (%) (Auto) 7.8L, Monocytes (%) (Auto) 6.0, Eosinophils (%) (Auto) 2.8, Basophils (%) (Auto) 0.8, Sodium Level 138, Potassium Level 3.6, Chloride Level 99, Carbon Dioxide Level 23, Anion Gap 16H, Blood Urea Nitrogen 81H, Creatinine 9.6H, Estimat Glomerular Filtration Rate 5.5, Glucose Level 202H, Calcium Level 9.9, Phosphorus Level 3.1, Magnesium Level 3.0H, Total Bilirubin 0.3, Direct Bilirubin 0.2, Aspartate Amino Transf (AST/SGOT) 19, Alanine Aminotransferase (ALT/SGPT) 11L, Alkaline Phosphatase 144H, Total Protein 7.4, Albumin 2.5L Height (Feet): 6 Height (Inches): 1.00 Weight (Pounds): 188 General Appearance: no apparent distress EENT: other - Trach and vent Cardiovascular: tachycardia Respiratory/Chest: decreased breath sounds Abdomen: distended Objective No change Mic Cole MD Jul 26, 2019 11:54
--- NOTE | 2019-07-26 12:10 | Cardiac Electrophysiology PN ---
Assessment/Plan Assessment/Plan 1. Elevated troponin. Low level and flat due to renal failure. On Aspirin. EF 60%. 2. Recurrent fever and Septic shock. On Levo 1 mcg, Midodrine 10 tid and Abx 3. ESRD, on HD per Dr. Cole. 4. Resp failure due to COVID-19 positive pneumonia. On the Vent with 30% Fio2. S/P Tracheostomy 07/08/19 5. Dysphagia, S/P PEG 07/13/19 6. COPD. 7. Anemia. JHONY RN Subjective Subjective In ICU, on Vent via trach with 30% Fio2 and PEEP 5. On Levo 1 mcg, Fentanyl 100 and Midodrine. Awaiting LTAC placement. Covid positive x 9. HD pending today Objective Last 24 Hour Vital Signs Date Time Temp Pulse Resp B/P (MAP) Pulse Ox O2 Delivery O2 Flow Rate FiO2 07/26/19 11:25 97 30 100 Mechanical Ventilator 30 101 31 30 07/26/19 09:00 91 27 135/77 (96) 100 07/26/19 08:30 87 22 130/73 (92) 100 07/26/19 08:00 99.1 85 31 127/66 (86) 100 07/26/19 08:00 30 07/26/19 08:00 Mechanical Ventilator 07/26/19 07:30 85 27 120/80 (93) 100 07/26/19 07:11 84 30 100 Mechanical Ventilator 30 88 28 30 07/26/19 07:00 91 26 128/67 (87) 100 07/26/19 07:00 128/67 07/26/19 07:00 26 128/67 Mechanical Ventilator 30 07/26/19 06:30 144/74 07/26/19 06:30 90 28 07/26/19 06:00 111/61 07/26/19 06:00 26 111/61 Mechanical Ventilator 30 07/26/19 06:00 89 26 111/61 (78) 100 07/26/19 05:00 87 26 111/60 (77) 100 07/26/19 05:00 111/60 07/26/19 05:00 26 111/60 Mechanical Ventilator 30 07/26/19 04:00 Mechanical Ventilator 07/26/19 04:00 79 07/26/19 04:00 116/65 07/26/19 04:00 30 116/65 Mechanical Ventilator 40 07/26/19 04:00 99.2 86 30 116/65 (82) 100 07/26/19 04:00 30 07/26/19 03:37 89 32 100 Mechanical Ventilator 30 91 33 30 07/26/19 03:00 79 29 110/63 (79) 100 07/26/19 03:00 110/63 07/26/19 03:00 29 110/63 Mechanical Ventilator 30 07/26/19 02:00 86 30 127/64 (85) 100 07/26/19 02:00 127/64 07/26/19 02:00 30 127/64 Mechanical Ventilator 30 07/26/19 01:00 118/59 07/26/19 01:00 31 118/59 Mechanical Ventilator 30 07/26/19 01:00 82 31 118/59 (78) 100 07/26/19 00:00 Mechanical Ventilator 07/26/19 00:00 82 07/26/19 00:00 99.5 87 32 121/63 (82) 100 07/26/19 00:00 121/63 07/26/19 00:00 32 121/63 Mechanical Ventilator 30 07/26/19 00:00 30 07/25/19 23:56 91 31 100 Mechanical Ventilator 30 93 28 30 07/25/19 23:00 129/72 07/25/19 23:00 27 129/72 Mechanical Ventilator 30 07/25/19 23:00 84 27 129/72 (91) 100 07/25/19 22:00 82 30 128/63 (84) 100 07/25/19 22:00 128/68 07/25/19 22:00 30 128/68 Mechanical Ventilator 30 07/25/19 21:00 116/66 07/25/19 21:00 28 116/66 Mechanical Ventilator 30 07/25/19 21:00 78 28 116/66 (83) 100 07/25/19 20:11 78 27 100 Mechanical Ventilator 30 78 28 30 07/25/19 20:00 30 07/25/19 20:00 109/68 07/25/19 20:00 27 109/68 Mechanical Ventilator 30 07/25/19 20:00 99.0 77 27 109/68 (82) 100 07/25/19 20:00 84 07/25/19 20:00 Mechanical Ventilator 07/25/19 19:00 115/67 07/25/19 19:00 27 115/61 Mechanical Ventilator 30 07/25/19 19:00 81 27 115/61 (79) 100 07/25/19 18:30 85 31 101/58 (72) 100 07/25/19 18:00 99/56 07/25/19 18:00 30 99/56 Mechanical Ventilator 30 07/25/19 18:00 85 33 119/65 (83) 100 07/25/19 17:30 89 29 121/59 (79) 100 07/25/19 17:00 88 31 115/61 (79) 100 07/25/19 17:00 115/61 07/25/19 17:00 31 115/61 Mechanical Ventilator 30 07/25/19 16:30 83 18 143/91 (108) 99 07/25/19 16:00 35 07/25/19 16:00 99.0 78 18 148/73 (98) 99 07/25/19 16:00 78 18 148/73 (98) 99 07/25/19 16:00 Mechanical Ventilator 07/25/19 16:00 139/65 07/25/19 16:00 18 148/73 Mechanical Ventilator 35 07/25/19 16:00 78 07/25/19 15:30 76 18 144/76 (98) 100 07/25/19 15:18 74 29 100 Mechanical Ventilator 30 81 29 30 07/25/19 15:00 75 27 142/65 (90) 100 07/25/19 15:00 142/65 07/25/19 15:00 27 142/65 Mechanical Ventilator 35 07/25/19 14:30 76 33 134/69 (90) 100 07/25/19 14:00 69 24 128/66 (86) 100 07/25/19 14:00 130/69 07/25/19 14:00 25 130/69 Mechanical Ventilator 35 07/25/19 13:30 73 28 116/61 (79) 100 07/25/19 13:00 74 26 93/53 (66) 100 07/25/19 13:00 116/59 07/25/19 13:00 24 116/59 Mechanical Ventilator 35 07/25/19 12:30 74 26 91/53 (66) 100 Intake and Output 07/25/19 07/26/19 19:00 07:00 Intake Total 690.57 ml 581.54 ml Balance 690.57 ml 581.54 ml Free Water 150 ml 50 ml IV Total 120.57 ml 111.54 ml Tube Feeding 420 ml 420 ml # Bowel Movements 2 2 Laboratory Tests Test 07/26/19 05:23 White Blood Count 17.1 K/UL (4.8-10.8) H Red Blood Count 3.14 M/UL (4.70-6.10) L Hemoglobin 9.0 G/DL (14.2-18.0) L Hematocrit 30.9 % (42.0-52.0) L Mean Corpuscular Volume 98 FL (80-99) Mean Corpuscular Hemoglobin 28.7 PG (27.0-31.0) Mean Corpuscular Hemoglobin Concent 29.1 G/DL (32.0-36.0) L Red Cell Distribution Width 17.9 % (11.6-14.8) H Platelet Count 330 K/UL (150-450) Mean Platelet Volume 7.6 FL (6.5-10.1) Neutrophils (%) (Auto) 82.5 % (45.0-75.0) H Lymphocytes (%) (Auto) 7.8 % (20.0-45.0) L Monocytes (%) (Auto) 6.0 % (1.0-10.0) Eosinophils (%) (Auto) 2.8 % (0.0-3.0) Basophils (%) (Auto) 0.8 % (0.0-2.0) Sodium Level 138 MMOL/L (136-145) Potassium Level 3.6 MMOL/L (3.5-5.1) Chloride Level 99 MMOL/L (98-107) Carbon Dioxide Level 23 MMOL/L (21-32) Anion Gap 16 mmol/L (5-15) H Blood Urea Nitrogen 81 mg/dL (7-18) H Creatinine 9.6 MG/DL (0.55-1.30) H Estimat Glomerular Filtration Rate 5.5 mL/min (>60) Glucose Level 202 MG/DL (74-106) H Calcium Level 9.9 MG/DL (8.5-10.1) Phosphorus Level 3.1 MG/DL (2.5-4.9) Magnesium Level 3.0 MG/DL (1.8-2.4) H Total Bilirubin 0.3 MG/DL (0.2-1.0) Direct Bilirubin 0.2 MG/DL (0.0-0.3) Aspartate Amino Transf (AST/SGOT) 19 U/L (15-37) Alanine Aminotransferase (ALT/SGPT) 11 U/L (12-78) L Alkaline Phosphatase 144 U/L (46-116) H Total Protein 7.4 G/DL (6.4-8.2) Albumin 2.5 G/DL (3.4-5.0) L Objective HEAD AND NECK: No JVD. Tracheostomy in place. Left IJ HD catheter now in place LUNGS: Decreased breath sounds. CARDIOVASCULAR: Regular S1 and S2. Tachycardic. ABDOMEN: Soft. PEG in place EXTREMITIES: No pitting edema. Left FV Gio Engle MD Jul 26, 2019 12:10
--- NOTE | 2019-07-26 13:58 | Surgery Progress Note ---
Surgery Progress Note Subjective Procedure Performed Right femoral temporary hemodialysis catheter removal Additional Comments Leukocytosis, low-grade fevers, anemia Receiving hemodialysis now on Levophed 1 jermaine Objective Last 24 Hour Vital Signs Date Time Temp Pulse Resp B/P (MAP) Pulse Ox O2 Delivery O2 Flow Rate FiO2 07/26/19 11:25 97 30 100 Mechanical Ventilator 30 101 31 30 07/26/19 09:00 91 27 135/77 (96) 100 07/26/19 08:30 87 22 130/73 (92) 100 07/26/19 08:00 99.1 85 31 127/66 (86) 100 07/26/19 08:00 30 07/26/19 08:00 Mechanical Ventilator 07/26/19 07:30 85 27 120/80 (93) 100 07/26/19 07:11 84 30 100 Mechanical Ventilator 30 88 28 30 07/26/19 07:00 91 26 128/67 (87) 100 07/26/19 07:00 128/67 07/26/19 07:00 26 128/67 Mechanical Ventilator 30 07/26/19 06:30 144/74 07/26/19 06:30 90 28 07/26/19 06:00 111/61 07/26/19 06:00 26 111/61 Mechanical Ventilator 30 07/26/19 06:00 89 26 111/61 (78) 100 07/26/19 05:00 87 26 111/60 (77) 100 07/26/19 05:00 111/60 07/26/19 05:00 26 111/60 Mechanical Ventilator 30 07/26/19 04:00 Mechanical Ventilator 07/26/19 04:00 79 07/26/19 04:00 116/65 07/26/19 04:00 30 116/65 Mechanical Ventilator 40 07/26/19 04:00 99.2 86 30 116/65 (82) 100 07/26/19 04:00 30 07/26/19 03:37 89 32 100 Mechanical Ventilator 30 91 33 30 07/26/19 03:00 79 29 110/63 (79) 100 07/26/19 03:00 110/63 07/26/19 03:00 29 110/63 Mechanical Ventilator 30 07/26/19 02:00 86 30 127/64 (85) 100 07/26/19 02:00 127/64 07/26/19 02:00 30 127/64 Mechanical Ventilator 30 07/26/19 01:00 118/59 07/26/19 01:00 31 118/59 Mechanical Ventilator 30 07/26/19 01:00 82 31 118/59 (78) 100 07/26/19 00:00 Mechanical Ventilator 07/26/19 00:00 82 07/26/19 00:00 99.5 87 32 121/63 (82) 100 07/26/19 00:00 121/63 07/26/19 00:00 32 121/63 Mechanical Ventilator 30 07/26/19 00:00 30 07/25/19 23:56 91 31 100 Mechanical Ventilator 30 93 28 30 07/25/19 23:00 129/72 07/25/19 23:00 27 129/72 Mechanical Ventilator 30 07/25/19 23:00 84 27 129/72 (91) 100 07/25/19 22:00 82 30 128/63 (84) 100 07/25/19 22:00 128/68 07/25/19 22:00 30 128/68 Mechanical Ventilator 30 07/25/19 21:00 116/66 07/25/19 21:00 28 116/66 Mechanical Ventilator 30 07/25/19 21:00 78 28 116/66 (83) 100 07/25/19 20:11 78 27 100 Mechanical Ventilator 30 78 28 30 07/25/19 20:00 30 07/25/19 20:00 109/68 07/25/19 20:00 27 109/68 Mechanical Ventilator 30 07/25/19 20:00 99.0 77 27 109/68 (82) 100 07/25/19 20:00 84 07/25/19 20:00 Mechanical Ventilator 07/25/19 19:00 115/67 07/25/19 19:00 27 115/61 Mechanical Ventilator 30 07/25/19 19:00 81 27 115/61 (79) 100 07/25/19 18:30 85 31 101/58 (72) 100 07/25/19 18:00 99/56 07/25/19 18:00 30 99/56 Mechanical Ventilator 30 07/25/19 18:00 85 33 119/65 (83) 100 07/25/19 17:30 89 29 121/59 (79) 100 07/25/19 17:00 88 31 115/61 (79) 100 07/25/19 17:00 115/61 07/25/19 17:00 31 115/61 Mechanical Ventilator 30 07/25/19 16:30 83 18 143/91 (108) 99 07/25/19 16:00 35 07/25/19 16:00 99.0 78 18 148/73 (98) 99 07/25/19 16:00 78 18 148/73 (98) 99 07/25/19 16:00 Mechanical Ventilator 07/25/19 16:00 139/65 07/25/19 16:00 18 148/73 Mechanical Ventilator 35 07/25/19 16:00 78 07/25/19 15:30 76 18 144/76 (98) 100 07/25/19 15:18 74 29 100 Mechanical Ventilator 30 81 29 30 07/25/19 15:00 75 27 142/65 (90) 100 07/25/19 15:00 142/65 07/25/19 15:00 27 142/65 Mechanical Ventilator 35 07/25/19 14:30 76 33 134/69 (90) 100 07/25/19 14:00 69 24 128/66 (86) 100 07/25/19 14:00 130/69 07/25/19 14:00 25 130/69 Mechanical Ventilator 35 I&O Intake and Output 07/25/19 07/26/19 19:00 07:00 Intake Total 690.57 ml 581.54 ml Balance 690.57 ml 581.54 ml Free Water 150 ml 50 ml IV Total 120.57 ml 111.54 ml Tube Feeding 420 ml 420 ml # Bowel Movements 2 2 Dressing: other Wound: other Drains: other Cardiovascular: RSR Respiratory: decreased breath sounds Abdomen: soft, present bowel sounds, non-distended Extremities: no cyanosis Laboratory Tests Test 07/26/19 05:23 White Blood Count 17.1 K/UL (4.8-10.8) H Red Blood Count 3.14 M/UL (4.70-6.10) L Hemoglobin 9.0 G/DL (14.2-18.0) L Hematocrit 30.9 % (42.0-52.0) L Mean Corpuscular Volume 98 FL (80-99) Mean Corpuscular Hemoglobin 28.7 PG (27.0-31.0) Mean Corpuscular Hemoglobin Concent 29.1 G/DL (32.0-36.0) L Red Cell Distribution Width 17.9 % (11.6-14.8) H Platelet Count 330 K/UL (150-450) Mean Platelet Volume 7.6 FL (6.5-10.1) Neutrophils (%) (Auto) 82.5 % (45.0-75.0) H Lymphocytes (%) (Auto) 7.8 % (20.0-45.0) L Monocytes (%) (Auto) 6.0 % (1.0-10.0) Eosinophils (%) (Auto) 2.8 % (0.0-3.0) Basophils (%) (Auto) 0.8 % (0.0-2.0) Sodium Level 138 MMOL/L (136-145) Potassium Level 3.6 MMOL/L (3.5-5.1) Chloride Level 99 MMOL/L (98-107) Carbon Dioxide Level 23 MMOL/L (21-32) Anion Gap 16 mmol/L (5-15) H Blood Urea Nitrogen 81 mg/dL (7-18) H Creatinine 9.6 MG/DL (0.55-1.30) H Estimat Glomerular Filtration Rate 5.5 mL/min (>60) Glucose Level 202 MG/DL (74-106) H Calcium Level 9.9 MG/DL (8.5-10.1) Phosphorus Level 3.1 MG/DL (2.5-4.9) Magnesium Level 3.0 MG/DL (1.8-2.4) H Total Bilirubin 0.3 MG/DL (0.2-1.0) Direct Bilirubin 0.2 MG/DL (0.0-0.3) Aspartate Amino Transf (AST/SGOT) 19 U/L (15-37) Alanine Aminotransferase (ALT/SGPT) 11 U/L (12-78) L Alkaline Phosphatase 144 U/L (46-116) H Total Protein 7.4 G/DL (6.4-8.2) Albumin 2.5 G/DL (3.4-5.0) L Plan Problems: (1) Suspected COVID-19 virus infection (2) HTN (hypertension) (3) CASSANDRA (acute kidney injury) Assessment & Plan: Needs urgent HD needs access patient okay and consented see note will follow with recs new line placed discussed with team and nephrology HD line functional when checked has TPA now please use appropriately Cathflo used again this flow during dialysis on 430 was low. Will monitor may need line change 5/4 plan for HD as per renal may need to take fluid off with HD edema anasarca dressings saturated and changed will monitor cont with HD IJ left line placed for HD given extent of prior line in place. leukocytosis blood cx negative may need to change out line new line okay HD going well Continue HD as tolerated May need pressors for HD as needed (4) Anemia in chronic kidney disease (CKD) (5) Anemia (6) Renal failure (7) Suspected COVID-19 virus infection Assessment & Plan: Pt deconditioned and despite all skin preventions Pt noted to have developed several pressure injuries. . Stable dry eschar noted to clefts of R and L ears. No erythema noted . DTPI noted to L trochanter. Base of injury is maroon in colour with marginal erythema along borders. Partially opened DTPI Sacrum, R and L Buttocks. Base of wound is maroon with two small open wounds L sacrum and L buttocks. Pt has an APM/MOMO Mattress overlay and is being positioned with pillows as per tolerance and within protocols. worsening despite medical efforts will cont to provide therapy Tx.Plan: Apply Cavilon Skin Barrier to both ears Daily and prn. Apply Moisture Barrier Paste to Sacrum,R and L Buttocks. Cover with Optifoam drsgs. Change every 3 days and PRN. Apply Cavilon Skin Barrier to R and L trochanter. Cover each site with Optifoam drsgs.Change every 7 days and PRN. Apply Cavilon Skin Barrier to both heels. Cover each heel with Optifoam drsg. Change every 7 days and prn. Off-load heels with pillow. Reposition at least every 2hours or as tolerated. APM/MOMO Mattress overlay. (8) COVID-19 Assessment & Plan: COVID + c diff negative febrile leukocytosis renal insufficiency see above cont resp care Rx as per ID worsening on vent support now cxr noted on pressors prognosis guarded repeat covid ++ weaning vent and pressors off slowly showing improvement slowly recovering will need trach as unable to wean vent safely called and spoke with country conservatorship. consent obtained s/p trach pending peg worsening on levo max (9) Sepsis Assessment & Plan: worsening leukocytosis febrile on pressors discussed with ID. lines evaluated and clean. he is septic on pressors and needs central access in difficult venous access patient blood cultures negative will monitor Yaniv Mast Jul 26, 2019 13:58
[2019-07-26] MEDS: fentaNYL 2500mcg/NS 250ml 250 ML IV SCH ×2 (14:06→21:35)
[2019-07-26] MEDS ORDERED: NS 275ml ONE (17:34)
[2019-07-26] MEDS ORDERED: Sterile Water Irrig 1000ml IRRIG ONE (17:34)
[2019-07-26] MEDS: Dyna-Hex 2% Top Sol 2oz TOPIC SCH (19:45)
--- NOTE | 2019-07-26 20:32 | General Progress Note ---
Assessment/Plan Problem List: (1) HTN (hypertension) ICD Codes: I10 - Essential (primary) hypertension SNOMED: 98372668 (2) CASSANDRA (acute kidney injury) ICD Codes: N17.9 - Acute kidney failure, unspecified SNOMED: 6567132, 46294842 (3) Anemia in chronic kidney disease (CKD) ICD Codes: N18.9 - Chronic kidney disease, unspecified; D63.1 - Anemia in chronic kidney disease SNOMED: 498714704 (4) Renal failure ICD Codes: N19 - Unspecified kidney failure SNOMED: 95094117 (5) Respiratory failure requiring intubation ICD Codes: J96.90 - Respiratory failure, unspecified, unspecified whether with hypoxia or hypercapnia; A41.89 - Other specified sepsis SNOMED: 576460108, 352013599 (6) Pneumonia due to COVID-19 virus ICD Codes: U07.1 - COVID-19; J12.89 - Other viral pneumonia SNOMED: 838311386, 953462943 (7) Sepsis due to severe acute respiratory syndrome coronavirus 2 (SARS-CoV-2) ICD Codes: U07.1 - COVID-19; A41.89 - Other specified sepsis SNOMED: 328341766, 627815768 Status: progressing, unchanged, deteriorating Assessment/Plan: sepsis prn diaylsis poor prognosis no family asked for bioethics consulte since no family leukocytosis azotemia/renal failure s/p covid pna Subjective ROS Limited/Unobtainable: Yes Allergies: Coded Allergies: No Known Allergies (Unverified , 05/28/19) Objective Last 24 Hour Vital Signs Date Time Temp Pulse Resp B/P (MAP) Pulse Ox O2 Delivery O2 Flow Rate FiO2 07/26/19 19:30 99.4 89 18 121/63 (82) 100 07/26/19 19:27 85 26 100 Mechanical Ventilator 30 84 26 30 07/26/19 19:00 88 27 115/59 (77) 100 07/26/19 19:00 27 115/59 Mechanical Ventilator 30 07/26/19 18:30 90 7 93/58 (70) 100 07/26/19 18:00 26 120/67 Mechanical Ventilator 30 07/26/19 18:00 96 27 120/67 (84) 100 07/26/19 17:30 96 29 115/61 (79) 100 07/26/19 17:00 98 2 125/61 (82) 99 07/26/19 17:00 125/61 07/26/19 17:00 16 125/61 Mechanical Ventilator 30 07/26/19 16:30 92 29 120/66 (84) 100 07/26/19 16:00 98 07/26/19 16:00 30 07/26/19 16:00 123/62 07/26/19 16:00 28 123/62 Mechanical Ventilator 28 07/26/19 16:00 Mechanical Ventilator 07/26/19 16:00 99.2 93 41 118/75 (89) 100 07/26/19 15:30 107 12 102/60 (74) 100 07/26/19 15:09 105 28 30 07/26/19 15:00 108/78 07/26/19 15:00 24 108/78 Mechanical Ventilator 30 07/26/19 15:00 96 24 118/74 (89) 100 07/26/19 14:30 101 26 119/66 (83) 100 07/26/19 14:00 97 18 103/70 (81) 100 07/26/19 14:00 103/70 07/26/19 14:00 22 103/70 Mechanical Ventilator 30 07/26/19 13:30 111 27 119/79 (92) 100 07/26/19 13:00 101 30 108/61 (77) 100 07/26/19 13:00 108/61 07/26/19 13:00 27 108/61 Mechanical Ventilator 30 07/26/19 12:30 95 27 124/66 (85) 100 07/26/19 12:00 97 07/26/19 12:00 122/67 07/26/19 12:00 27 122/67 Mechanical Ventilator 30 07/26/19 12:00 Mechanical Ventilator 07/26/19 12:00 30 07/26/19 12:00 99.0 96 28 122/67 (85) 100 07/26/19 11:30 91 29 113/62 (79) 100 07/26/19 11:25 97 30 100 Mechanical Ventilator 30 101 31 30 07/26/19 11:00 96 26 133/65 (87) 100 07/26/19 11:00 133/65 07/26/19 11:00 27 133/65 Mechanical Ventilator 30 07/26/19 10:30 96 27 119/69 (86) 100 07/26/19 10:00 100 30 125/69 (87) 100 07/26/19 10:00 125/69 07/26/19 10:00 36 125/69 Mechanical Ventilator 30 07/26/19 09:00 135/77 07/26/19 09:00 27 137/77 Mechanical Ventilator 30 07/26/19 09:00 91 27 135/77 (96) 100 07/26/19 08:30 87 22 130/73 (92) 100 07/26/19 08:00 82 07/26/19 08:00 99.1 85 31 127/66 (86) 100 07/26/19 08:00 127/66 07/26/19 08:00 26 127/66 Mechanical Ventilator 30 07/26/19 08:00 30 07/26/19 08:00 Mechanical Ventilator 07/26/19 07:30 85 27 120/80 (93) 100 07/26/19 07:11 84 30 100 Mechanical Ventilator 30 88 28 30 07/26/19 07:00 91 26 128/67 (87) 100 07/26/19 07:00 128/67 07/26/19 07:00 26 128/67 Mechanical Ventilator 30 07/26/19 06:30 144/74 07/26/19 06:30 90 28 07/26/19 06:00 111/61 07/26/19 06:00 26 111/61 Mechanical Ventilator 30 07/26/19 06:00 89 26 111/61 (78) 100 07/26/19 05:00 87 26 111/60 (77) 100 07/26/19 05:00 111/60 07/26/19 05:00 26 111/60 Mechanical Ventilator 30 07/26/19 04:00 Mechanical Ventilator 07/26/19 04:00 79 07/26/19 04:00 116/65 07/26/19 04:00 30 116/65 Mechanical Ventilator 40 07/26/19 04:00 99.2 86 30 116/65 (82) 100 07/26/19 04:00 30 07/26/19 03:37 89 32 100 Mechanical Ventilator 30 91 33 30 07/26/19 03:00 79 29 110/63 (79) 100 07/26/19 03:00 110/63 07/26/19 03:00 29 110/63 Mechanical Ventilator 30 07/26/19 02:00 86 30 127/64 (85) 100 07/26/19 02:00 127/64 07/26/19 02:00 30 127/64 Mechanical Ventilator 30 07/26/19 01:00 118/59 07/26/19 01:00 31 118/59 Mechanical Ventilator 30 07/26/19 01:00 82 31 118/59 (78) 100 07/26/19 00:00 Mechanical Ventilator 07/26/19 00:00 82 07/26/19 00:00 99.5 87 32 121/63 (82) 100 07/26/19 00:00 121/63 07/26/19 00:00 32 121/63 Mechanical Ventilator 30 07/26/19 00:00 30 07/25/19 23:56 91 31 100 Mechanical Ventilator 30 93 28 30 07/25/19 23:00 129/72 07/25/19 23:00 27 129/72 Mechanical Ventilator 30 07/25/19 23:00 84 27 129/72 (91) 100 07/25/19 22:00 82 30 128/63 (84) 100 07/25/19 22:00 128/68 07/25/19 22:00 30 128/68 Mechanical Ventilator 30 07/25/19 21:00 116/66 07/25/19 21:00 28 116/66 Mechanical Ventilator 30 07/25/19 21:00 78 28 116/66 (83) 100 Intake and Output 07/25/19 07/26/19 19:00 07:00 Intake Total 690.57 ml 581.54 ml Balance 690.57 ml 581.54 ml Free Water 150 ml 50 ml IV Total 120.57 ml 111.54 ml Tube Feeding 420 ml 420 ml # Bowel Movements 2 2 Laboratory Tests 07/26/19 05:23: White Blood Count 17.1H, Red Blood Count 3.14L, Hemoglobin 9.0L, Hematocrit 30.9L, Mean Corpuscular Volume 98, Mean Corpuscular Hemoglobin 28.7, Mean Corpuscular Hemoglobin Concent 29.1L, Red Cell Distribution Width 17.9H, Platelet Count 330, Mean Platelet Volume 7.6, Neutrophils (%) (Auto) 82.5H, Lymphocytes (%) (Auto) 7.8L, Monocytes (%) (Auto) 6.0, Eosinophils (%) (Auto) 2.8, Basophils (%) (Auto) 0.8, Sodium Level 138, Potassium Level 3.6, Chloride Level 99, Carbon Dioxide Level 23, Anion Gap 16H, Blood Urea Nitrogen 81H, Creatinine 9.6H, Estimat Glomerular Filtration Rate 5.5, Glucose Level 202H, Calcium Level 9.9, Phosphorus Level 3.1, Magnesium Level 3.0H, Total Bilirubin 0.3, Direct Bilirubin 0.2, Aspartate Amino Transf (AST/SGOT) 19, Alanine Aminotransferase (ALT/SGPT) 11L, Alkaline Phosphatase 144H, Total Protein 7.4, Albumin 2.5L Height (Feet): 6 Height (Inches): 1.00 Weight (Pounds): 188 Karishma Mulligan MD Jul 26, 2019 20:32
[2019-07-26] MEDS: Epoetin Alfa-EPBX(ESRD on dialysis)10,000 unit/ml vial SUBQ SCH (20:58)
[2019-07-27] VITALS (40 sets, daily range): BP systolic 79–145; BP diastolic 44–79
[2019-07-27] MEDS: Albuterol 90mcg Inhaler 8gm INH SCH ×6 (03:54→23:41)
[2019-07-27] MEDS: Renvela 2400 mg pkt NG SCH ×4 (05:09→22:32)
[2019-07-27] MEDS: Midodrine 10mg tab ORAL SCH ×3 (05:10→22:32)
[2019-07-27] MEDS: NovoLOG Insulin Flexpen SUBQ SCH ×4 (06:30→23:32)
--- NOTE | 2019-07-27 07:44 | Cardiac Electrophysiology PN ---
Assessment/Plan Assessment/Plan 1. Elevated troponin. Low level and flat due to renal failure. On Aspirin. EF 60%. 2. Septic shock. On Levo 1 mcg, Midodrine 10 tid and Abx 3. ESRD, on HD per Dr. Cole. 4. Resp failure due to COVID-19 positive pneumonia. On the Vent with 30% Fio2. S/P Tracheostomy 07/08/19 5. Dysphagia, S/P PEG 07/13/19 6. COPD. 7. Anemia. JHONY RN Subjective Subjective In ICU, on Vent via trach with 30% Fio2 and PEEP 5. Still on Levo 1 mcg and Fentanyl 100 and Midodrine. Awaiting LTAC placement. Covid positive x 9. HD yesterday Objective Last 24 Hour Vital Signs Date Time Temp Pulse Resp B/P (MAP) Pulse Ox O2 Delivery O2 Flow Rate FiO2 07/27/19 06:30 86 18 79/44 (56) 99 07/27/19 06:30 89 28 07/27/19 06:00 86 0 79/44 (56) 98 07/27/19 05:30 94 19 104/57 (73) 89 07/27/19 05:00 93 24 98/68 (78) 99 07/27/19 04:00 26 114/59 Mechanical Ventilator 100 07/27/19 04:00 89 26 114/59 (77) 92 07/27/19 04:00 89 07/27/19 04:00 Mechanical Ventilator 07/27/19 04:00 30 07/27/19 03:30 86 26 115/54 (74) 07/27/19 03:00 28 122/64 Mechanical Ventilator 100 07/27/19 03:00 87 28 122/64 (83) 07/27/19 03:00 89 27 100 Mechanical Ventilator 30 88 29 30 07/27/19 02:00 30 114/60 Mechanical Ventilator 30 07/27/19 02:00 85 28 114/60 (78) 07/27/19 01:00 83 25 107/55 (72) 07/27/19 01:00 25 107/55 Mechanical Ventilator 30 07/27/19 00:30 83 38 102/54 (70) 07/27/19 00:00 30 07/27/19 00:00 84 07/27/19 00:00 25 110/64 Mechanical Ventilator 30 07/27/19 00:00 Mechanical Ventilator 07/27/19 00:00 99.2 84 51 110/64 (79) 07/26/19 23:30 85 21 110/54 (72) 99 07/26/19 23:04 86 30 100 Mechanical Ventilator 30 85 30 30 07/26/19 23:00 86 27 101/63 (76) 90 07/26/19 23:00 25 101/63 Mechanical Ventilator 30 07/26/19 22:00 93 26 90/54 (66) 100 07/26/19 22:00 26 90/54 Mechanical Ventilator 30 07/26/19 21:35 26 157/66 30 07/26/19 21:30 100 27 157/66 (96) 100 07/26/19 21:00 29 108/59 Mechanical Ventilator 30 07/26/19 21:00 88 29 108/59 (75) 100 07/26/19 20:30 89 30 106/54 (71) 100 07/26/19 20:00 Mechanical Ventilator 07/26/19 20:00 33 112/61 Mechanical Ventilator 30 07/26/19 20:00 99.4 90 33 112/61 (78) 100 07/26/19 20:00 90 07/26/19 20:00 30 07/26/19 19:30 89 18 121/63 (82) 100 07/26/19 19:27 85 26 100 Mechanical Ventilator 30 84 26 30 07/26/19 19:00 88 27 115/59 (77) 100 07/26/19 19:00 27 115/59 Mechanical Ventilator 30 07/26/19 18:30 90 7 93/58 (70) 100 07/26/19 18:00 26 120/67 Mechanical Ventilator 30 07/26/19 18:00 96 27 120/67 (84) 100 07/26/19 17:30 96 29 115/61 (79) 100 07/26/19 17:00 98 2 125/61 (82) 99 07/26/19 17:00 125/61 07/26/19 17:00 16 125/61 Mechanical Ventilator 30 07/26/19 16:30 92 29 120/66 (84) 100 07/26/19 16:00 98 07/26/19 16:00 30 07/26/19 16:00 123/62 07/26/19 16:00 28 123/62 Mechanical Ventilator 28 07/26/19 16:00 Mechanical Ventilator 07/26/19 16:00 99.2 93 41 118/75 (89) 100 07/26/19 15:30 107 12 102/60 (74) 100 07/26/19 15:09 105 28 30 07/26/19 15:00 108/78 07/26/19 15:00 24 108/78 Mechanical Ventilator 30 07/26/19 15:00 96 24 118/74 (89) 100 07/26/19 14:30 101 26 119/66 (83) 100 07/26/19 14:00 97 18 103/70 (81) 100 07/26/19 14:00 103/70 07/26/19 14:00 22 103/70 Mechanical Ventilator 30 07/26/19 13:30 111 27 119/79 (92) 100 07/26/19 13:00 101 30 108/61 (77) 100 07/26/19 13:00 108/61 07/26/19 13:00 27 108/61 Mechanical Ventilator 30 07/26/19 12:30 95 27 124/66 (85) 100 07/26/19 12:00 97 07/26/19 12:00 122/67 07/26/19 12:00 27 122/67 Mechanical Ventilator 30 07/26/19 12:00 Mechanical Ventilator 07/26/19 12:00 30 07/26/19 12:00 99.0 96 28 122/67 (85) 100 07/26/19 11:30 91 29 113/62 (79) 100 07/26/19 11:25 97 30 100 Mechanical Ventilator 30 101 31 30 07/26/19 11:00 96 26 133/65 (87) 100 07/26/19 11:00 133/65 07/26/19 11:00 27 133/65 Mechanical Ventilator 30 07/26/19 10:30 96 27 119/69 (86) 100 07/26/19 10:00 100 30 125/69 (87) 100 07/26/19 10:00 125/69 07/26/19 10:00 36 125/69 Mechanical Ventilator 30 07/26/19 09:00 135/77 07/26/19 09:00 27 137/77 Mechanical Ventilator 30 07/26/19 09:00 91 27 135/77 (96) 100 6/15/20 08:30 87 22 130/73 (92) 100 07/26/19 08:00 82 07/26/19 08:00 99.1 85 31 127/66 (86) 100 07/26/19 08:00 127/66 07/26/19 08:00 26 127/66 Mechanical Ventilator 30 07/26/19 08:00 30 07/26/19 08:00 Mechanical Ventilator Intake and Output 07/26/19 07/27/19 19:00 07:00 Intake Total 648.70 ml 577.08 ml Output Total 1000 ml 0 ml Balance -351.30 ml 577.08 ml Free Water 150 ml 150 ml IV Total 78.70 ml 42.08 ml Tube Feeding 420 ml 385 ml Output Urine Total 0 ml 0 ml Hemodialysis UF 1000 ml # Bowel Movements 1 3 Laboratory Tests Test 07/27/19 03:15 Random Vancomycin Level 17.1 ug/mL Objective HEAD AND NECK: No JVD. Tracheostomy in place. Left IJ HD catheter now in place LUNGS: Decreased breath sounds. CARDIOVASCULAR: Regular S1 and S2. Tachycardic. ABDOMEN: Soft. PEG in place EXTREMITIES: No pitting edema. Left FV Gio Engle MD Jul 27, 2019 07:44
--- NOTE | 2019-07-27 07:47 | Pulmonolgy Critical Care Note ---
Critical Care - Asmt/Plan Assessment/Plan: Pulmonary CCM Progress Note HPI: Patient is a 68 year old man, care home resident, admitted c/o shortness of breath, cough, noted to have Covid 19 Pneumonia, Respiratory Failure Remains on Ventilator, CXR infiltrates stable Septic Shock, remains on pressors - Mitodrine , Levophed PRN, not tolerating weaning, will need placement Preserved EF FIO2 40%, P5, adequate O2 sats, remains on ACVC, s/p Tracheostomy previously, sp PEG ID following Seen earlier on 07/26/2019 Past Medical History: COPD, CKD, Hypertension, Anemia Allergies: No Known Allergies Improving Pulmonary Status on HD Physical Exam Vital Signs Noted Stable on ventilator Chronically ill appearing HEENT: moist mm, trach Chest: Occasional rhonchi, BS equal bilaterally Heart: HS1, HS2, RRR Abdomen: SNTND G tube Extremities: No edema, well perfused [employer]ENTICE: Non focal, sedated Impression: COVID-19 virus infection Pneumonia Respiratory failure on ventilator, wean as tolerated once off pressors CKD - on HD Hypotension on pressors previously Cardiomegaly Lymphopenia Elevated AST COPD Chronic Kidney Disease - HD H/o Hypertension Worsening anemia Plan: SP Tracheostomy / G tube Antibiotics per ID HD Pressors PRN ACVC - wean as tolerated [employer]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 Medications 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 Monitor cultures/viral studies PPX Hemodialysis per Renal Psychiatry following Laboratory Tests Noted: CXR: Hypoventilatory exam, interstitial changes, cardiomegaly, improving infiltrates Subjective ROS Limited/Unobtainable: No Constitutional: Denies: fever Respiratory: Reports: dry cough, shortness of breath Gastrointestinal/Abdominal: Reports: diarrhea, other - colace was stopped Psychiatric: Reports: other - refuses labs Allergies: Coded Allergies: No Known Allergies (Unverified , 05/28/19) All Systems: reviewed and negative except above Labs noted Critical Care - Objective Last 24 Hour Vital Signs Date Time Temp Pulse Resp B/P (MAP) Pulse Ox O2 Delivery O2 Flow Rate FiO2 07/27/19 06:30 86 18 79/44 (56) 99 07/27/19 06:30 89 28 07/27/19 06:00 86 0 79/44 (56) 98 07/27/19 05:30 94 19 104/57 (73) 89 07/27/19 05:00 93 24 98/68 (78) 99 07/27/19 04:00 26 114/59 Mechanical Ventilator 100 07/27/19 04:00 89 26 114/59 (77) 92 07/27/19 04:00 89 07/27/19 04:00 Mechanical Ventilator 07/27/19 04:00 30 07/27/19 03:30 86 26 115/54 (74) 07/27/19 03:00 28 122/64 Mechanical Ventilator 100 07/27/19 03:00 87 28 122/64 (83) 07/27/19 03:00 89 27 100 Mechanical Ventilator 30 88 29 30 07/27/19 02:00 30 114/60 Mechanical Ventilator 30 07/27/19 02:00 85 28 114/60 (78) 07/27/19 01:00 83 25 107/55 (72) 07/27/19 01:00 25 107/55 Mechanical Ventilator 30 07/27/19 00:30 83 38 102/54 (70) 07/27/19 00:00 30 07/27/19 00:00 84 07/27/19 00:00 25 110/64 Mechanical Ventilator 30 07/27/19 00:00 Mechanical Ventilator 07/27/19 00:00 99.2 84 51 110/64 (79) 07/26/19 23:30 85 21 110/54 (72) 99 07/26/19 23:04 86 30 100 Mechanical Ventilator 30 85 30 30 07/26/19 23:00 86 27 101/63 (76) 90 07/26/19 23:00 25 101/63 Mechanical Ventilator 30 07/26/19 22:00 93 26 90/54 (66) 100 07/26/19 22:00 26 90/54 Mechanical Ventilator 30 07/26/19 21:35 26 157/66 30 07/26/19 21:30 100 27 157/66 (96) 100 07/26/19 21:00 29 108/59 Mechanical Ventilator 30 07/26/19 21:00 88 29 108/59 (75) 100 07/26/19 20:30 89 30 106/54 (71) 100 07/26/19 20:00 Mechanical Ventilator 07/26/19 20:00 33 112/61 Mechanical Ventilator 30 07/26/19 20:00 99.4 90 33 112/61 (78) 100 07/26/19 20:00 90 07/26/19 20:00 30 07/26/19 19:30 89 18 121/63 (82) 100 07/26/19 19:27 85 26 100 Mechanical Ventilator 30 84 26 30 07/26/19 19:00 88 27 115/59 (77) 100 07/26/19 19:00 27 115/59 Mechanical Ventilator 30 07/26/19 18:30 90 7 93/58 (70) 100 07/26/19 18:00 26 120/67 Mechanical Ventilator 30 07/26/19 18:00 96 27 120/67 (84) 100 07/26/19 17:30 96 29 115/61 (79) 100 07/26/19 17:00 98 2 125/61 (82) 99 07/26/19 17:00 125/61 07/26/19 17:00 16 125/61 Mechanical Ventilator 30 07/26/19 16:30 92 29 120/66 (84) 100 07/26/19 16:00 98 07/26/19 16:00 30 07/26/19 16:00 123/62 07/26/19 16:00 28 123/62 Mechanical Ventilator 28 07/26/19 16:00 Mechanical Ventilator 07/26/19 16:00 99.2 93 41 118/75 (89) 100 07/26/19 15:30 107 12 102/60 (74) 100 07/26/19 15:09 105 28 30 07/26/19 15:00 108/78 07/26/19 15:00 24 108/78 Mechanical Ventilator 30 07/26/19 15:00 96 24 118/74 (89) 100 07/26/19 14:30 101 26 119/66 (83) 100 07/26/19 14:00 97 18 103/70 (81) 100 07/26/19 14:00 103/70 07/26/19 14:00 22 103/70 Mechanical Ventilator 30 07/26/19 13:30 111 27 119/79 (92) 100 07/26/19 13:00 101 30 108/61 (77) 100 07/26/19 13:00 108/61 07/26/19 13:00 27 108/61 Mechanical Ventilator 30 07/26/19 12:30 95 27 124/66 (85) 100 07/26/19 12:00 97 07/26/19 12:00 122/67 07/26/19 12:00 27 122/67 Mechanical Ventilator 30 07/26/19 12:00 Mechanical Ventilator 07/26/19 12:00 30 07/26/19 12:00 99.0 96 28 122/67 (85) 100 07/26/19 11:30 91 29 113/62 (79) 100 07/26/19 11:25 97 30 100 Mechanical Ventilator 30 101 31 30 07/26/19 11:00 96 26 133/65 (87) 100 07/26/19 11:00 133/65 07/26/19 11:00 27 133/65 Mechanical Ventilator 30 07/26/19 10:30 96 27 119/69 (86) 100 07/26/19 10:00 100 30 125/69 (87) 100 07/26/19 10:00 125/69 07/26/19 10:00 36 125/69 Mechanical Ventilator 30 07/26/19 09:00 135/77 07/26/19 09:00 27 137/77 Mechanical Ventilator 30 07/26/19 09:00 91 27 135/77 (96) 100 07/26/19 08:30 87 22 130/73 (92) 100 07/26/19 08:00 82 07/26/19 08:00 99.1 85 31 127/66 (86) 100 07/26/19 08:00 127/66 07/26/19 08:00 26 127/66 Mechanical Ventilator 30 07/26/19 08:00 30 07/26/19 08:00 Mechanical Ventilator Accucheck: 168 Critical Care - Subjective ROS Limited/Unobtainable: Yes Condition: critical FI02: 100 Vent Support Breath Rate: 26 Vent Support Mode: AC Vent Tidal Volume: 500 Sputum Amount: Moderate PEEP: 5.0 PIP: 26 Tube Feeding Amount: 35 I&O: Intake and Output 07/26/19 07/27/19 19:00 07:00 Intake Total 648.70 ml 577.08 ml Output Total 1000 ml 0 ml Balance -351.30 ml 577.08 ml Free Water 150 ml 150 ml IV Total 78.70 ml 42.08 ml Tube Feeding 420 ml 385 ml Output Urine Total 0 ml 0 ml Hemodialysis UF 1000 ml # Bowel Movements 1 3 ET-Tube: 7.5 ET Position: 24 Arturo Mckeon MD Jul 27, 2019 07:47
--- NOTE | 2019-07-27 07:49 | Hematology/Onc Progress Note ---
Assessment/Plan Assessment/Plan Assessment and Recs: # Anemia of chronic disease, likely related ot underlying kidney disease has COIVD19++++++ --> hgb trend 9-->8-->7.3-->7.9-->6.8->9.5-->10->8.3-->7.7-->7.1-->8.9->8.8->7.7 -->8.1 ->7.9-->7.7 -->8.2-->8.1 -->7.9-->8.5 -->9->9.2-->9.5-->10.7 -->9.8--> 10.2-->11.8 -->11.9-->8.8 ->9.4->9 --> transfuse as needed, hgb goal >7 --> no evidence of hemolysis --> peripheral smear has been reviewed --> epogen started 3 x a week ==>> transfuse 06/08, 06/15 # Leukocytosis likely related to suspected COVID-19 virus infection --> completed plaquenil --> trend smear as needed --> wbc trend: 4-->11-->14.5-->21-->26-->21->24--.28-->23-->19-->16.2-->21--> 11.2 -->12.5-->12.3-->12.4-->18.5-->18.5-->17->13-->18.2-->22.2-->25-->17.4-->17 --> pulm is aware --> on abx cefepime/vanc->zosyn/vanc-->dom/vanc-->dom-->levaquin/cefepime,--> vanc --> pressors as needed --> 06/27 covid 19++ --> pressors as needed in icu # Thrombocytopenia/Lymphopenia --> likely related to covid19 --> plt 129k-->186k-->251-->285-->384 -->430-->539-->515-->447-->451-->404-->544 -->244 # Respiratory failure with covid19+ --> s/p vent/trach --> weaning # Possible Pneumonia --> abx completed --> 07/13 cxr: Improved right lung infiltrates. # Cardiomegaly # Transaminitis with Elevated AST # COPD # Chronic Kidney Disease --> per renal hd --> s/p right femoral cath 07/02 # Hypertension # Dvt ppx lovenox # peg Appreciate consultation and ernesto Rn Subjective Allergies: Coded Allergies: No Known Allergies (Unverified , 05/28/19) Subjective 06/01 nv, extremely agitated, not allowing labs draws, no night sweats, cbc ordered 06/02 confused, restraints, on abx and plaquenil, hgb 7.9, nrb 15 L 06/03 is with nonrebreather, but not compliant, remains confused 06/05 no bleeding, labs noted, no major bleeding, otherwise comfortable 06/06 labs reviewed, no bleeding, meds noted, no night sweats, on levo and nonrebreather 06/07 labs noted, no bleeding, meds reviewed, no bleeding, wbc higher 06/08 to get 2 units prbc, no night sweats, meds reviewed 06/09 is on cefepime and vanc, labs noted, ernesto Rn, no bleeding 06/10 no major changes, labs reviewed, wbc 28k, on abx, cefepime 06/12 remains in icu, labs noted, no night sweats or bleeding 06/13 sluggish pupils, remains agitated, per psych, no bleding, on vent, wbc sitll high 06/14 still confused, remains on vent, with ng, running nepro, on pressors 06/15 icu, febrile, non verbal, hgb 7.1, blood pending, completed plaq 06/16 remains in the icu, nonverbal, plan for hd tomorrow, ernesto rn 06/17 in icu, on pressor, nonverbal, on abx, no bleeding 06/19 no bleeding, nonverbal in icu, hgb is 7.7 06/20 on zosyn, tube feeds, vent, labs noted, in icu, nv 06/21 gettng hd as per renal, in icu, nv, no bleeding, tfs 06/22 icu, cxr with slight improvement, cooling blanket, weaning today 06/23 wewaning, in icu, on vent, abx, and pressors as needed, labs noted 06/24 failed weaning, off abx, completed plaquenil, hgb 8.1 06/26 icu, weaning for this am, afebrile, hgb 8 06/27 in icu, remains comotose, weaning started on peep, no night sweats 06/28 weaning today, off abx, restraints, no distress, h/h stable 06/29 covid 19+, failed weaning, no blood transfusion needed 06/30 icu, on vent, labs reviewed, no distress 07/01 in icu, may need trach, remains on hd per renal, labs noted 07/02 s/p right fem cath, failed wean, no new orders, h/h stable 07/03 is somewhat more responsive, on abx, no bleeding, weaning and HD today 07/04 hd as per renal, weaning off vent, no bleeding today 07/05 obtunded, no bleding overnight, with hd for tomorrow noted, vanc 07/08 no events, remains with trach/vent, ernesto Rn, no bleeding, cbc is noted 07/09 no overnight events, peg for friday pending consent 07/10 off pressors, vent, restraints, labs reviewed 07/11 no acute events is on pressors, intubated, agitated still 07/12 is resting comfortably, no bleeding, emds reviewed and noted 07/13 icu, no events, trach, cxr reviewed, 07/14 is onv ent, tachypneic and tachycardic, labs noted 07/15 remains confused, intubated, ernesto Rn, no bleeding 07/17 icu, cxr improving infiltrates, levo gtt, airborne/contact isolation 07/18 is on broad spectrum abx, is on levaquin and cefepime, wbc 16 agitated 07/19 icu, levo gtt, cxr unchanged, tachy, hd thursday 07/20 sedated, safety restraints, labs reviewed 07/21 hd was done yesterday, lower pressor requirements, wbc is worse, on abx 07/22 icu, meds and labs reviewed, vent, no distress 07/24 on vent, in icu, labs noted, remains agitated, and confused 07/25 remains obtunded, on vent, on pressor, hgb 9, wbc elev 07/26 icu, levo gtt, vent, iv abx, nonverbal Objective Objective Current Medications Medications (Trade) Dose Ordered Sig/Anthony Route PRN Reason Start Time Stop Time Status Last Admin Dose Admin Acetaminophen (Tylenol) 650 mg Q4H PRN NG For Pain 07/11/19 08:00 08/10/19 07:59 07/25/19 01:30 Albuterol Sulfate (Proventil MDI) 2 puff Q4HRT INH 06/06/19 23:00 08/30/19 18:59 07/27/19 03:54 Chlorhexidine Gluconate (Michelle-Hex 2%) 1 applic DAILY@2000 TOPIC 06/07/19 20:00 09/05/19 19:59 07/26/19 19:45 Dextrose (Dextrose 50%) 25 ml Q30M PRN IV Hypoglycemia 06/20/19 19:30 09/18/19 19:29 Dextrose (Dextrose 50%) 50 ml Q30M PRN IV Hypoglycemia 06/20/19 19:30 09/18/19 19:29 Dopamine HCl/ Dextrose 250 ml @ 0 mls/hr Q24H PRN IV For hypotension 06/13/19 08:15 09/11/19 08:14 07/17/19 08:46 Enoxaparin Sodium (Lovenox) 30 mg DAILY SUBQ 06/07/19 09:00 08/27/19 08:59 07/26/19 08:40 Epoetin Aftab (Epoetin Aftab(ESRD on dialysis)) 10,000 unit FRI-FRI-FRI SUBQ 06/07/19 21:00 08/31/19 20:59 07/26/19 20:58 Fentanyl Citrate 250 ml @ 0 mls/hr Q24H IV 07/19/19 14:06 10/17/19 14:05 07/26/19 21:35 Haloperidol Lactate 5 mg/ Dextrose 56 ml @ 224 mls/hr Q6H PRN IVPB Agitation 07/11/19 15:00 08/25/19 14:59 07/15/19 02:36 Hydralazine HCl (Apresoline) 10 mg Q4H PRN IV Blood pressure over 160 systol 06/07/19 10:15 09/05/19 10:14 Insulin Aspart (NovoLOG) EVERY 6 HOURS SUBQ 06/21/19 00:00 09/19/19 00:00 07/27/19 06:30 Midodrine (Pro-Amatine) 10 mg Q8HR ORAL 07/17/19 14:00 10/15/19 10:29 07/27/19 05:10 Norepinephrine Bitartrate 8 mg/ Sodium Chloride 250 ml @ 0 mls/hr Q24H IV 07/23/19 16:15 08/22/19 16:14 07/24/19 17:41 Sevelamer Carbonate (Renvela) 2,400 mg Q6HR NG 07/14/19 12:00 10/12/19 13:59 07/27/19 05:09 Vancomycin HCl ([facility] pharmacy to dose) 1 ea DAILY PRN MISC Per rx protocol 07/20/19 10:45 08/19/19 10:44 Vancomycin HCl 750 mg/Sodium Chloride 275 ml @ 183.333 mls/hr ONCE ONCE IVPB 07/27/19 10:00 07/27/19 11:29 Last 24 Hour Vital Signs Date Time Temp Pulse Resp B/P (MAP) Pulse Ox O2 Delivery O2 Flow Rate FiO2 07/27/19 06:30 86 18 79/44 (56) 99 07/27/19 06:30 89 28 07/27/19 06:00 86 0 79/44 (56) 98 07/27/19 05:30 94 19 104/57 (73) 89 07/27/19 05:00 93 24 98/68 (78) 99 07/27/19 04:00 26 114/59 Mechanical Ventilator 100 07/27/19 04:00 89 26 114/59 (77) 92 07/27/19 04:00 89 07/27/19 04:00 Mechanical Ventilator 07/27/19 04:00 30 07/27/19 03:30 86 26 115/54 (74) 07/27/19 03:00 28 122/64 Mechanical Ventilator 100 07/27/19 03:00 87 28 122/64 (83) 07/27/19 03:00 89 27 100 Mechanical Ventilator 30 88 29 30 07/27/19 02:00 30 114/60 Mechanical Ventilator 30 07/27/19 02:00 85 28 114/60 (78) 07/27/19 01:00 83 25 107/55 (72) 07/27/19 01:00 25 107/55 Mechanical Ventilator 30 07/27/19 00:30 83 38 102/54 (70) 07/27/19 00:00 30 07/27/19 00:00 84 07/27/19 00:00 25 110/64 Mechanical Ventilator 30 07/27/19 00:00 Mechanical Ventilator 07/27/19 00:00 99.2 84 51 110/64 (79) 07/26/19 23:30 85 21 110/54 (72) 99 07/26/19 23:04 86 30 100 Mechanical Ventilator 30 85 30 30 07/26/19 23:00 86 27 101/63 (76) 90 07/26/19 23:00 25 101/63 Mechanical Ventilator 30 07/26/19 22:00 93 26 90/54 (66) 100 07/26/19 22:00 26 90/54 Mechanical Ventilator 30 07/26/19 21:35 26 157/66 30 07/26/19 21:30 100 27 157/66 (96) 100 07/26/19 21:00 29 108/59 Mechanical Ventilator 30 07/26/19 21:00 88 29 108/59 (75) 100 07/26/19 20:30 89 30 106/54 (71) 100 07/26/19 20:00 Mechanical Ventilator 07/26/19 20:00 33 112/61 Mechanical Ventilator 30 07/26/19 20:00 99.4 90 33 112/61 (78) 100 07/26/19 20:00 90 07/26/19 20:00 30 07/26/19 19:30 89 18 121/63 (82) 100 07/26/19 19:27 85 26 100 Mechanical Ventilator 30 84 26 30 07/26/19 19:00 88 27 115/59 (77) 100 07/26/19 19:00 27 115/59 Mechanical Ventilator 30 07/26/19 18:30 90 7 93/58 (70) 100 07/26/19 18:00 26 120/67 Mechanical Ventilator 30 07/26/19 18:00 96 27 120/67 (84) 100 07/26/19 17:30 96 29 115/61 (79) 100 07/26/19 17:00 98 2 125/61 (82) 99 07/26/19 17:00 125/61 07/26/19 17:00 16 125/61 Mechanical Ventilator 30 07/26/19 16:30 92 29 120/66 (84) 100 07/26/19 16:00 98 07/26/19 16:00 30 07/26/19 16:00 123/62 07/26/19 16:00 28 123/62 Mechanical Ventilator 28 07/26/19 16:00 Mechanical Ventilator 07/26/19 16:00 99.2 93 41 118/75 (89) 100 07/26/19 15:30 107 12 102/60 (74) 100 07/26/19 15:09 105 28 30 07/26/19 15:00 108/78 07/26/19 15:00 24 108/78 Mechanical Ventilator 30 07/26/19 15:00 96 24 118/74 (89) 100 07/26/19 14:30 101 26 119/66 (83) 100 07/26/19 14:00 97 18 103/70 (81) 100 07/26/19 14:00 103/70 07/26/19 14:00 22 103/70 Mechanical Ventilator 30 07/26/19 13:30 111 27 119/79 (92) 100 07/26/19 13:00 101 30 108/61 (77) 100 07/26/19 13:00 108/61 07/26/19 13:00 27 108/61 Mechanical Ventilator 30 07/26/19 12:30 95 27 124/66 (85) 100 07/26/19 12:00 97 07/26/19 12:00 122/67 07/26/19 12:00 27 122/67 Mechanical Ventilator 30 07/26/19 12:00 Mechanical Ventilator 07/26/19 12:00 30 07/26/19 12:00 99.0 96 28 122/67 (85) 100 07/26/19 11:30 91 29 113/62 (79) 100 07/26/19 11:25 97 30 100 Mechanical Ventilator 30 101 31 30 07/26/19 11:00 96 26 133/65 (87) 100 07/26/19 11:00 133/65 07/26/19 11:00 27 133/65 Mechanical Ventilator 30 6/15/20 10:30 96 27 119/69 (86) 100 07/26/19 10:00 100 30 125/69 (87) 100 07/26/19 10:00 125/69 07/26/19 10:00 36 125/69 Mechanical Ventilator 30 07/26/19 09:00 135/77 07/26/19 09:00 27 137/77 Mechanical Ventilator 30 07/26/19 09:00 91 27 135/77 (96) 100 07/26/19 08:30 87 22 130/73 (92) 100 07/26/19 08:00 82 07/26/19 08:00 99.1 85 31 127/66 (86) 100 07/26/19 08:00 127/66 07/26/19 08:00 26 127/66 Mechanical Ventilator 30 07/26/19 08:00 30 07/26/19 08:00 Mechanical Ventilator 07/26/19 07:30 85 27 120/80 (93) 100 07/26/19 07:11 84 30 100 Mechanical Ventilator 30 88 28 30 07/26/19 07:00 91 26 128/67 (87) 100 07/26/19 07:00 128/67 07/26/19 07:00 26 128/67 Mechanical Ventilator 30 07/26/19 06:30 144/74 07/26/19 06:30 90 28 07/26/19 06:00 111/61 07/26/19 06:00 26 111/61 Mechanical Ventilator 30 07/26/19 06:00 89 26 111/61 (78) 100 07/26/19 05:00 87 26 111/60 (77) 100 07/26/19 05:00 111/60 07/26/19 05:00 26 111/60 Mechanical Ventilator 30 07/26/19 04:00 Mechanical Ventilator 07/26/19 04:00 79 07/26/19 04:00 116/65 07/26/19 04:00 30 116/65 Mechanical Ventilator 40 07/26/19 04:00 99.2 86 30 116/65 (82) 100 07/26/19 04:00 30 07/26/19 03:37 89 32 100 Mechanical Ventilator 30 91 33 30 07/26/19 03:00 79 29 110/63 (79) 100 07/26/19 03:00 110/63 07/26/19 03:00 29 110/63 Mechanical Ventilator 30 07/26/19 02:00 86 30 127/64 (85) 100 07/26/19 02:00 127/64 07/26/19 02:00 30 127/64 Mechanical Ventilator 30 07/26/19 01:00 118/59 07/26/19 01:00 31 118/59 Mechanical Ventilator 30 07/26/19 01:00 82 31 118/59 (78) 100 07/26/19 00:00 Mechanical Ventilator 07/26/19 00:00 82 07/26/19 00:00 99.5 87 32 121/63 (82) 100 07/26/19 00:00 121/63 07/26/19 00:00 32 121/63 Mechanical Ventilator 30 07/26/19 00:00 30 07/25/19 23:56 91 31 100 Mechanical Ventilator 30 93 28 30 07/25/19 23:00 129/72 07/25/19 23:00 27 129/72 Mechanical Ventilator 30 07/25/19 23:00 84 27 129/72 (91) 100 07/25/19 22:00 82 30 128/63 (84) 100 07/25/19 22:00 128/68 07/25/19 22:00 30 128/68 Mechanical Ventilator 30 07/25/19 21:00 116/66 07/25/19 21:00 28 116/66 Mechanical Ventilator 30 07/25/19 21:00 78 28 116/66 (83) 100 07/25/19 20:11 78 27 100 Mechanical Ventilator 30 78 28 30 07/25/19 20:00 30 07/25/19 20:00 109/68 07/25/19 20:00 27 109/68 Mechanical Ventilator 30 07/25/19 20:00 99.0 77 27 109/68 (82) 100 07/25/19 20:00 84 07/25/19 20:00 Mechanical Ventilator 07/25/19 19:00 115/67 07/25/19 19:00 27 115/61 Mechanical Ventilator 30 07/25/19 19:00 81 27 115/61 (79) 100 07/25/19 18:30 85 31 101/58 (72) 100 07/25/19 18:00 99/56 07/25/19 18:00 30 99/56 Mechanical Ventilator 30 07/25/19 18:00 85 33 119/65 (83) 100 07/25/19 17:30 89 29 121/59 (79) 100 07/25/19 17:00 88 31 115/61 (79) 100 07/25/19 17:00 115/61 07/25/19 17:00 31 115/61 Mechanical Ventilator 30 07/25/19 16:30 83 18 143/91 (108) 99 07/25/19 16:00 35 07/25/19 16:00 99.0 78 18 148/73 (98) 99 07/25/19 16:00 78 18 148/73 (98) 99 07/25/19 16:00 Mechanical Ventilator 07/25/19 16:00 139/65 07/25/19 16:00 18 148/73 Mechanical Ventilator 35 07/25/19 16:00 78 07/25/19 15:30 76 18 144/76 (98) 100 07/25/19 15:18 74 29 100 Mechanical Ventilator 30 81 29 30 07/25/19 15:00 75 27 142/65 (90) 100 07/25/19 15:00 142/65 07/25/19 15:00 27 142/65 Mechanical Ventilator 35 07/25/19 14:30 76 33 134/69 (90) 100 07/25/19 14:00 69 24 128/66 (86) 100 07/25/19 14:00 130/69 07/25/19 14:00 25 130/69 Mechanical Ventilator 35 07/25/19 13:30 73 28 116/61 (79) 100 07/25/19 13:00 74 26 93/53 (66) 100 07/25/19 13:00 116/59 07/25/19 13:00 24 116/59 Mechanical Ventilator 35 07/25/19 12:30 74 26 91/53 (66) 100 07/25/19 12:00 35 07/25/19 12:00 73 07/25/19 12:00 Mechanical Ventilator 07/25/19 12:00 100/56 07/25/19 12:00 28 100/56 Mechanical Ventilator 35 07/25/19 12:00 98.6 74 23 115/65 (82) 100 07/25/19 11:30 73 20 118/65 (82) 100 07/25/19 11:00 98/54 07/25/19 11:00 26 98/54 Mechanical Ventilator 35 07/25/19 11:00 79 25 101/51 (68) 100 07/25/19 10:49 80 26 100 Mechanical Ventilator 30 89 26 30 07/25/19 10:30 79 27 100/52 (68) 100 07/25/19 10:00 78 11 104/54 (71) 100 07/25/19 10:00 100/52 07/25/19 10:00 20 100/52 Mechanical Ventilator 35 07/25/19 09:30 79 26 126/61 (82) 100 07/25/19 09:00 76 30 114/60 (78) 100 07/25/19 09:00 118/70 07/25/19 09:00 29 118/70 Mechanical Ventilator 35 07/25/19 08:30 119/61 07/25/19 08:30 27 119/61 Mechanical Ventilator 35 07/25/19 08:30 73 21 111/57 (75) 100 07/25/19 08:00 35 07/25/19 08:00 29 108/56 Mechanical Ventilator 35 07/25/19 08:00 83 07/25/19 08:00 99.1 73 27 109/53 (71) 100 07/25/19 08:00 Mechanical Ventilator Intake and Output 07/26/19 07/27/19 19:00 07:00 Intake Total 648.70 ml 577.08 ml Output Total 1000 ml 0 ml Balance -351.30 ml 577.08 ml Free Water 150 ml 150 ml IV Total 78.70 ml 42.08 ml Tube Feeding 420 ml 385 ml Output Urine Total 0 ml 0 ml Hemodialysis UF 1000 ml # Bowel Movements 1 3 Labs Test 07/25/19 04:00 07/26/19 05:23 07/27/19 03:15 White Blood Count 16.8 K/UL (4.8-10.8) 17.1 K/UL (4.8-10.8) Red Blood Count 3.24 M/UL (4.70-6.10) 3.14 M/UL (4.70-6.10) Hemoglobin 9.4 G/DL (14.2-18.0) 9.0 G/DL (14.2-18.0) Hematocrit 31.9 % (42.0-52.0) 30.9 % (42.0-52.0) Mean Corpuscular Volume 98 FL (80-99) 98 FL (80-99) Mean Corpuscular Hemoglobin 28.9 PG (27.0-31.0) 28.7 PG (27.0-31.0) Mean Corpuscular Hemoglobin Concent 29.4 G/DL (32.0-36.0) 29.1 G/DL (32.0-36.0) Red Cell Distribution Width 18.6 % (11.6-14.8) 17.9 % (11.6-14.8) Platelet Count 271 K/UL (150-450) 330 K/UL (150-450) Mean Platelet Volume 8.4 FL (6.5-10.1) 7.6 FL (6.5-10.1) Neutrophils (%) (Auto) 83.1 % (45.0-75.0) 82.5 % (45.0-75.0) Lymphocytes (%) (Auto) 8.0 % (20.0-45.0) 7.8 % (20.0-45.0) Monocytes (%) (Auto) 6.1 % (1.0-10.0) 6.0 % (1.0-10.0) Eosinophils (%) (Auto) 2.2 % (0.0-3.0) 2.8 % (0.0-3.0) Basophils (%) (Auto) 0.6 % (0.0-2.0) 0.8 % (0.0-2.0) Sodium Level 140 MMOL/L (136-145) 138 MMOL/L (136-145) Potassium Level 3.7 MMOL/L (3.5-5.1) 3.6 MMOL/L (3.5-5.1) Chloride Level 98 MMOL/L (98-107) 99 MMOL/L (98-107) Carbon Dioxide Level 26 MMOL/L (21-32) 23 MMOL/L (21-32) Anion Gap 16 mmol/L (5-15) 16 mmol/L (5-15) Blood Urea Nitrogen 70 mg/dL (7-18) 81 mg/dL (7-18) Creatinine 8.3 MG/DL (0.55-1.30) 9.6 MG/DL (0.55-1.30) Estimat Glomerular Filtration Rate 6.5 mL/min (>60) 5.5 mL/min (>60) Glucose Level 175 MG/DL (74-106) 202 MG/DL (74-106) Calcium Level 9.4 MG/DL (8.5-10.1) 9.9 MG/DL (8.5-10.1) Phosphorus Level 2.9 MG/DL (2.5-4.9) 3.1 MG/DL (2.5-4.9) Total Bilirubin 0.5 MG/DL (0.2-1.0) 0.3 MG/DL (0.2-1.0) Aspartate Amino Transf (AST/SGOT) 15 U/L (15-37) 19 U/L (15-37) Alanine Aminotransferase (ALT/SGPT) 6 U/L (12-78) 11 U/L (12-78) Alkaline Phosphatase 134 U/L (46-116) 144 U/L (46-116) Total Protein 8.0 G/DL (6.4-8.2) 7.4 G/DL (6.4-8.2) Albumin 2.7 G/DL (3.4-5.0) 2.5 G/DL (3.4-5.0) Globulin 5.3 g/dL Albumin/Globulin Ratio 0.5 (1.0-2.7) Magnesium Level 3.0 MG/DL (1.8-2.4) Direct Bilirubin 0.2 MG/DL (0.0-0.3) Random Vancomycin Level 17.1 ug/mL Height (Feet): 6 Height (Inches): 1.00 Weight (Pounds): 186 Objective General: nv, confused, sedated Heent: bilateral eye normal inspection, bilateral eye PERRL ++Ng Respiratory: normal breath sounds, no respiratory distress, intubated/vent +++ trach+++ Cardiovascular: regular rate, rhythm, no edema Gastrointestinal: normal inspection, soft, non-distended, peg+ Rectal: deferred Musculoskeletal: normal range of motion, non-tender, R fem cath++ Neurologic: alert, motor strength/tone normal, sensory intact, responsive, speech normal Skin: Decubitus/Ulcer - See RN skin exam. : jamaal+ Grge Cabral MD Jul 27, 2019 07:49
--- NOTE | 2019-07-27 08:08 | General Progress Note ---
Assessment/Plan Status: progressing, unchanged, deteriorating Assessment/Plan: 1. Diabetes. 2. Hypertension. 3. Coronary artery disease. 4. COPD. 5. Psychiatric disorder with schizophrenia. 6. History of hepatitis C. 7. HLP. 8. Chronic kidney disease, now with acute renal failure. 9. Anemia. 10. Hypothyroidism. 11. Spinal stenosis. 12. Constipation. 13. GERD. 14. COVID positive HD per nephrology fu labs icu care s/p PEG GTF monitor for residuals Subjective ROS Limited/Unobtainable: No Allergies: Coded Allergies: No Known Allergies (Unverified , 05/28/19) Objective Last 24 Hour Vital Signs Date Time Temp Pulse Resp B/P (MAP) Pulse Ox O2 Delivery O2 Flow Rate FiO2 07/27/19 06:30 86 18 79/44 (56) 99 07/27/19 06:30 89 28 07/27/19 06:00 86 0 79/44 (56) 98 07/27/19 05:30 94 19 104/57 (73) 89 07/27/19 05:00 93 24 98/68 (78) 99 07/27/19 04:00 26 114/59 Mechanical Ventilator 100 07/27/19 04:00 89 26 114/59 (77) 92 07/27/19 04:00 89 07/27/19 04:00 Mechanical Ventilator 07/27/19 04:00 30 07/27/19 03:30 86 26 115/54 (74) 07/27/19 03:00 28 122/64 Mechanical Ventilator 100 07/27/19 03:00 87 28 122/64 (83) 07/27/19 03:00 89 27 100 Mechanical Ventilator 30 88 29 30 07/27/19 02:00 30 114/60 Mechanical Ventilator 30 07/27/19 02:00 85 28 114/60 (78) 07/27/19 01:00 83 25 107/55 (72) 07/27/19 01:00 25 107/55 Mechanical Ventilator 30 07/27/19 00:30 83 38 102/54 (70) 07/27/19 00:00 30 07/27/19 00:00 84 07/27/19 00:00 25 110/64 Mechanical Ventilator 30 07/27/19 00:00 Mechanical Ventilator 07/27/19 00:00 99.2 84 51 110/64 (79) 07/26/19 23:30 85 21 110/54 (72) 99 07/26/19 23:04 86 30 100 Mechanical Ventilator 30 85 30 30 07/26/19 23:00 86 27 101/63 (76) 90 07/26/19 23:00 25 101/63 Mechanical Ventilator 30 07/26/19 22:00 93 26 90/54 (66) 100 07/26/19 22:00 26 90/54 Mechanical Ventilator 30 07/26/19 21:35 26 157/66 30 07/26/19 21:30 100 27 157/66 (96) 100 07/26/19 21:00 29 108/59 Mechanical Ventilator 30 07/26/19 21:00 88 29 108/59 (75) 100 07/26/19 20:30 89 30 106/54 (71) 100 07/26/19 20:00 Mechanical Ventilator 07/26/19 20:00 33 112/61 Mechanical Ventilator 30 07/26/19 20:00 99.4 90 33 112/61 (78) 100 07/26/19 20:00 90 07/26/19 20:00 30 07/26/19 19:30 89 18 121/63 (82) 100 07/26/19 19:27 85 26 100 Mechanical Ventilator 30 84 26 30 07/26/19 19:00 88 27 115/59 (77) 100 07/26/19 19:00 27 115/59 Mechanical Ventilator 30 07/26/19 18:30 90 7 93/58 (70) 100 07/26/19 18:00 26 120/67 Mechanical Ventilator 30 07/26/19 18:00 96 27 120/67 (84) 100 07/26/19 17:30 96 29 115/61 (79) 100 07/26/19 17:00 98 2 125/61 (82) 99 20 17:00 125/61 07/26/19 17:00 16 125/61 Mechanical Ventilator 30 07/26/19 16:30 92 29 120/66 (84) 100 07/26/19 16:00 98 07/26/19 16:00 30 07/26/19 16:00 123/62 07/26/19 16:00 28 123/62 Mechanical Ventilator 28 07/26/19 16:00 Mechanical Ventilator 07/26/19 16:00 99.2 93 41 118/75 (89) 100 07/26/19 15:30 107 12 102/60 (74) 100 07/26/19 15:09 105 28 30 07/26/19 15:00 108/78 07/26/19 15:00 24 108/78 Mechanical Ventilator 30 07/26/19 15:00 96 24 118/74 (89) 100 07/26/19 14:30 101 26 119/66 (83) 100 07/26/19 14:00 97 18 103/70 (81) 100 07/26/19 14:00 103/70 07/26/19 14:00 22 103/70 Mechanical Ventilator 30 07/26/19 13:30 111 27 119/79 (92) 100 07/26/19 13:00 101 30 108/61 (77) 100 07/26/19 13:00 108/61 07/26/19 13:00 27 108/61 Mechanical Ventilator 30 07/26/19 12:30 95 27 124/66 (85) 100 07/26/19 12:00 97 07/26/19 12:00 122/67 07/26/19 12:00 27 122/67 Mechanical Ventilator 30 07/26/19 12:00 Mechanical Ventilator 07/26/19 12:00 30 07/26/19 12:00 99.0 96 28 122/67 (85) 100 07/26/19 11:30 91 29 113/62 (79) 100 07/26/19 11:25 97 30 100 Mechanical Ventilator 30 101 31 30 07/26/19 11:00 96 26 133/65 (87) 100 07/26/19 11:00 133/65 07/26/19 11:00 27 133/65 Mechanical Ventilator 30 07/26/19 10:30 96 27 119/69 (86) 100 07/26/19 10:00 100 30 125/69 (87) 100 07/26/19 10:00 125/69 07/26/19 10:00 36 125/69 Mechanical Ventilator 30 07/26/19 09:00 135/77 07/26/19 09:00 27 137/77 Mechanical Ventilator 30 07/26/19 09:00 91 27 135/77 (96) 100 07/26/19 08:30 87 22 130/73 (92) 100 Intake and Output 07/26/19 07/27/19 19:00 07:00 Intake Total 648.70 ml 577.08 ml Output Total 1000 ml 0 ml Balance -351.30 ml 577.08 ml Free Water 150 ml 150 ml IV Total 78.70 ml 42.08 ml Tube Feeding 420 ml 385 ml Output Urine Total 0 ml 0 ml Hemodialysis UF 1000 ml # Bowel Movements 1 3 Laboratory Tests 07/27/19 03:15: Random Vancomycin Level 17.1 Height (Feet): 6 Height (Inches): 1.00 Weight (Pounds): 186 General Appearance: no apparent distress EENT: normal ENT inspection Neck: supple Cardiovascular: normal rate Respiratory/Chest: decreased breath sounds Abdomen: normal bowel sounds, non tender, soft Extremities: non-tender Marito Ramires MD Jul 27, 2019 08:08
[2019-07-27] MEDS: Pantoprazole Inj IVP SCH (08:14)
[2019-07-27] MEDS: Enoxaparin 30mg Inj SUBQ SCH (08:15)
[2019-07-27] MEDS ORDERED: Vancomycin 750mg/NS 275ml IVPB ONE ×2 (10:00)
[2019-07-27] MEDS: Acetaminophen 650mg/20.3ml NG PRN (10:14)
--- NOTE | 2019-07-27 12:45 | Infectious Diseases Prog Note ---
Assessment/Plan Assessment/Plan IMPRESSION: 1. COVID19 pneumonia Positive: 05/27, 05/31 , 06/05, 06/09 ,06/17, 06/19, 06/23, 06/27, 07/03, 07/15 2. MRSA carrier. 3. Chronic kidney disease , end-stage renal disease. 4. COPD. 5. Hypertension. 6. Anemia. 7. Hypothyroidism. 8. Hyperlipidemia. 9. Major depression. 10. Leukocytosis 11. Hypotension 12. Hepatitis C 13. Hyperuricemia 14. Diarrhea 15. septic shock 16. Leukocytosis improving 17. Pneumonia with Staph aureus ( MRSA) 18. Bacteremia with Staph coagulase negative RECOMMENDATIONS: Continue IV Vancomycin Will f/u COVID19 test for transfer Case was D/W RN Subjective ROS Limited/Unobtainable: Yes Constitutional: Denies: fever Allergies: Coded Allergies: No Known Allergies (Unverified , 05/28/19) Objective Vital Signs Last 24 Hour Vital Signs Date Time Temp Pulse Resp B/P (MAP) Pulse Ox O2 Delivery O2 Flow Rate FiO2 07/27/19 10:43 93 26 100 Mechanical Ventilator 30 94 26 30 07/27/19 10:30 94 26 115/57 (76) 100 07/27/19 10:00 86 18 130/64 (86) 100 07/27/19 09:47 100 07/27/19 09:30 86 24 142/70 (94) 100 07/27/19 09:00 91 11 135/68 (90) 100 07/27/19 08:30 92 21 127/57 (80) 100 07/27/19 08:00 99.2 99 20 142/79 (100) 99 07/27/19 08:00 30 07/27/19 08:00 Mechanical Ventilator 07/27/19 07:30 95 23 138/65 (89) 99 07/27/19 07:01 80 27 30 07/27/19 07:00 90 27 145/72 (96) 99 07/27/19 06:30 86 18 79/44 (56) 99 07/27/19 06:30 89 28 07/27/19 06:00 86 0 79/44 (56) 98 07/27/19 05:30 94 19 104/57 (73) 89 07/27/19 05:00 93 24 98/68 (78) 99 07/27/19 04:00 26 114/59 Mechanical Ventilator 100 07/27/19 04:00 89 26 114/59 (77) 92 07/27/19 04:00 89 07/27/19 04:00 Mechanical Ventilator 07/27/19 04:00 30 07/27/19 03:30 86 26 115/54 (74) 07/27/19 03:00 28 122/64 Mechanical Ventilator 100 07/27/19 03:00 87 28 122/64 (83) 07/27/19 03:00 89 27 100 Mechanical Ventilator 30 88 29 30 07/27/19 02:00 30 114/60 Mechanical Ventilator 30 07/27/19 02:00 85 28 114/60 (78) 07/27/19 01:00 83 25 107/55 (72) 07/27/19 01:00 25 107/55 Mechanical Ventilator 30 07/27/19 00:30 83 38 102/54 (70) 07/27/19 00:00 30 07/27/19 00:00 84 07/27/19 00:00 25 110/64 Mechanical Ventilator 30 07/27/19 00:00 Mechanical Ventilator 07/27/19 00:00 99.2 84 51 110/64 (79) 07/26/19 23:30 85 21 110/54 (72) 99 07/26/19 23:04 86 30 100 Mechanical Ventilator 30 85 30 30 07/26/19 23:00 86 27 101/63 (76) 90 07/26/19 23:00 25 101/63 Mechanical Ventilator 30 07/26/19 22:00 93 26 90/54 (66) 100 07/26/19 22:00 26 90/54 Mechanical Ventilator 30 07/26/19 21:35 26 157/66 30 07/26/19 21:30 100 27 157/66 (96) 100 07/26/19 21:00 29 108/59 Mechanical Ventilator 30 07/26/19 21:00 88 29 108/59 (75) 100 07/26/19 20:30 89 30 106/54 (71) 100 07/26/19 20:00 Mechanical Ventilator 07/26/19 20:00 33 112/61 Mechanical Ventilator 30 07/26/19 20:00 99.4 90 33 112/61 (78) 100 07/26/19 20:00 90 07/26/19 20:00 30 07/26/19 19:30 89 18 121/63 (82) 100 07/26/19 19:27 85 26 100 Mechanical Ventilator 30 84 26 30 07/26/19 19:00 88 27 115/59 (77) 100 07/26/19 19:00 27 115/59 Mechanical Ventilator 30 07/26/19 18:30 90 7 93/58 (70) 100 07/26/19 18:00 26 120/67 Mechanical Ventilator 30 07/26/19 18:00 96 27 120/67 (84) 100 07/26/19 17:30 96 29 115/61 (79) 100 07/26/19 17:00 98 2 125/61 (82) 99 07/26/19 17:00 125/61 07/26/19 17:00 16 125/61 Mechanical Ventilator 30 07/26/19 16:30 92 29 120/66 (84) 100 07/26/19 16:00 98 07/26/19 16:00 30 07/26/19 16:00 123/62 07/26/19 16:00 28 123/62 Mechanical Ventilator 28 07/26/19 16:00 Mechanical Ventilator 07/26/19 16:00 99.2 93 41 118/75 (89) 100 07/26/19 15:30 107 12 102/60 (74) 100 07/26/19 15:09 105 28 30 07/26/19 15:00 108/78 07/26/19 15:00 24 108/78 Mechanical Ventilator 30 07/26/19 15:00 96 24 118/74 (89) 100 07/26/19 14:30 101 26 119/66 (83) 100 07/26/19 14:00 97 18 103/70 (81) 100 07/26/19 14:00 103/70 07/26/19 14:00 22 103/70 Mechanical Ventilator 30 07/26/19 13:30 111 27 119/79 (92) 100 07/26/19 13:00 101 30 108/61 (77) 100 07/26/19 13:00 108/61 07/26/19 13:00 27 108/61 Mechanical Ventilator 30 Height (Feet): 6 Height (Inches): 1.00 Weight (Pounds): 186 HEENT: status post trach Respiratory/Chest: other - on ventilator Cardiovascular: normal rate, other - central & HD line Abdomen: soft, non tender, other - GT feeding Neurologic/Psychiatric: disoriented Laboratory Tests Test 07/27/19 03:15 Random Vancomycin Level 17.1 ug/mL Current Medications Medications (Trade) Dose Ordered Sig/Anthony Route PRN Reason Start Time Stop Time Status Last Admin Dose Admin Acetaminophen (Tylenol) 650 mg Q4H PRN NG For Pain 07/11/19 08:00 08/10/19 07:59 07/27/19 10:14 Albuterol Sulfate (Proventil MDI) 2 puff Q4HRT INH 06/06/19 23:00 08/30/19 18:59 07/27/19 10:44 Chlorhexidine Gluconate (Michelle-Hex 2%) 1 applic DAILY@2000 TOPIC 06/07/19 20:00 09/05/19 19:59 07/26/19 19:45 Dextrose (Dextrose 50%) 25 ml Q30M PRN IV Hypoglycemia 06/20/19 19:30 09/18/19 19:29 Dextrose (Dextrose 50%) 50 ml Q30M PRN IV Hypoglycemia 06/20/19 19:30 09/18/19 19:29 Dopamine HCl/ Dextrose 250 ml @ 0 mls/hr Q24H PRN IV For hypotension 06/13/19 08:15 09/11/19 08:14 07/17/19 08:46 Enoxaparin Sodium (Lovenox) 30 mg DAILY SUBQ 06/07/19 09:00 08/27/19 08:59 07/27/19 08:15 Epoetin Aftab (Epoetin Aftab(ESRD on dialysis)) 10,000 unit FRI-FRI-FRI SUBQ 06/07/19 21:00 08/31/19 20:59 07/26/19 20:58 Fentanyl Citrate 250 ml @ 0 mls/hr Q24H IV 07/19/19 14:06 10/17/19 14:05 07/26/19 21:35 Haloperidol Lactate 5 mg/ Dextrose 56 ml @ 224 mls/hr Q6H PRN IVPB Agitation 07/11/19 15:00 08/25/19 14:59 07/15/19 02:36 Hydralazine HCl (Apresoline) 10 mg Q4H PRN IV Blood pressure over 160 systol 06/07/19 10:15 09/05/19 10:14 Insulin Aspart (NovoLOG) EVERY 6 HOURS SUBQ 06/21/19 00:00 09/19/19 00:00 07/27/19 06:30 Midodrine (Pro-Amatine) 10 mg Q8HR ORAL 07/17/19 14:00 10/15/19 10:29 07/27/19 05:10 Norepinephrine Bitartrate 8 mg/ Sodium Chloride 250 ml @ 0 mls/hr Q24H IV 07/23/19 16:15 08/22/19 16:14 07/24/19 17:41 Pantoprazole (Protonix) 40 mg DAILY IVP 07/27/19 09:00 08/26/19 08:59 07/27/19 08:14 Sevelamer Carbonate (Renvela) 2,400 mg Q6HR NG 07/14/19 12:00 10/12/19 13:59 07/27/19 12:12 Vancomycin HCl (Vanco pharmacy to dose) 1 ea DAILY PRN MISC Per rx protocol 07/20/19 10:45 08/19/19 10:44 Ted Leyva MD Jul 27, 2019 12:45
--- NOTE | 2019-07-27 13:04 | Nephrology Progress Note ---
Assessment/Plan Problem List: (1) CASSANDRA (acute kidney injury) (2) Anemia in chronic kidney disease (CKD) (3) HTN (hypertension) (4) COVID-19 Assessment Acute renal failure most likely superimposed on chronic kidney disease Suspected COVID-19 virus infection Possible Pneumonia, lymphopenia, elevated AST Cardiomegaly, possible CHF COPD Hypertension Anemia, most likely related to chronic kidney disease Plan July 26: No labs done today. Dialysis done yesterday. Will check lab tomorrow. Dialysis as needed. July 25: Lab reviewed. Dialysis today. Discussed with RN. July 24: Lab reviewed. Do dialysis tomorrow. Discussed with RN. July 23: Lab reviewed. Dialyzed yesterday. Discussed with RN. Remains full code. Next dialysis July 25. Will check labs tomorrow. July 22: Labs reviewed. Due for dialysis today. Discussed with RN. Watch borderline low blood pressure. Discussed with dialysis nurse. July 21: Today's lab reviewed. Will arrange for dialysis tomorrow. Discussed with RN. Aim to keep the blood pressure above 100 systolic. Continue per consultants. July 20: Patient was dialyzed yesterday. Could not ultrafiltrate much due to low blood pressure. Discussed with SHANIQUE Dick today. No labs drawn today. Continue per consultants. July 19: Due for dialysis today. Discussed with SHANIQUE Dick. Continue per consultants. July 18: Dialyzed July 16. Will order dialysis tomorrow July 19. Continues to be on ventilator through trach. No labs done today. Continue per consultants. July 17: Dialyzed yesterday. Stable from renal standpoint of view. Remains full code. Status post trach on vent. Status post PEG. Continue per consultants. July 16: Dialysis today. Will resume Midodrin to prevent hypotension. Patient remains full code. July 15: Dialyzed yesterday, due for dialysis tomorrow. Labs and medication list reviewed. Continue per consultants. Patient remains full code. COVID-19 detected again. July 14: Patient currently on dialysis. This is continuation of dialysis from yesterday as yesterday's dialysis was cut short due to catheter malfunction. Labs and medication reviewed. Continue per consultants. July 13: Patient currently on hemodialysis. The dialysis catheter which is a intrajugular Kamlesh has poor flow. Will try TPA. Continue per consultants. July 12: Due for PEG today. Due for dialysis tomorrow. Continue per consultants. Discussed with RN. July 11: Plan for dialysis today. Discussed with RN. Data reviewed. July 10: Plan for dialysis tomorrow July 11. Waiting for consent to proceed with PEG. Continue per consultants. Medication reviewed. Labs reviewed. Discussed with RN. July 09: Dialyzed yesterday. Labs reviewed. Medication reviewed. Next hemodialysis July 11. July 08: Patient has tracheostomy now. Connected to ventilator. Due for dialysis today. Continue per consultants. Discussed with SHANIQUE Romero. July 07: Patient is due for tracheostomy today. Patient was last dialyzed July 05. Will order dialysis for tomorrow. July 06: Patient is intubated on ventilator however the plan is to extubate today. Patient was dialysis yesterday July 05. The dialysis time was cut short due to patient's respiratory distress. Only 1 L was removed during dialysis yesterday. Today's lab reviewed. Continue per consultants. Will arrange for dialysis as needed. July 05: Patient due for dialysis today. Remains intubated. Will schedule permacath placement in a.m. blood cultures on July 04 are negative. July 04: Patient was dialyzed yesterday. Due for dialysis tomorrow. Continues to be intubated. After tomorrow's dialysis will order a permacath. July 03: Dialysis is about to be started now Continues to be intubated Will plan to remove the femoral dialysis catheter and exchanged for a new temporary catheter per ID recommendation We will check surveillance blood culture tomorrow July 02: Patient was dialyzed yesterday and due for dialysis tomorrow Stable from renal standpoint W on dialysis Continue per consultants, weaning....... etc. July 01: Dialysis today Other status unchanged June 30: Due for dialysis tomorrow Remains intubated on ventilator Labs and medication reviewed Discussed with RN Stable from renal standpoint of view June 29: Dialyzed yesterday Due for dialysis tomorrow Stable from renal standpoint to view Keeps failing weaning process June 28: Patient due for dialysis today Stable from renal standpoint to view Continue per consultants June 27: Labs reviewed Due due for dialysis June 28 Discussed with SHANIQUE Dick Continue per consultants Remains intubated on ventilator June 26 Labs reviewed Dialyzed yesterday Started on weaning today Continue to monitor renal parameters June 25: On dialysis now Potassium supplement implemented Continue per consultants Next dialysis June 27June 15: Status unchanged Dialyzed yesterday will dialyze again tomorrow Potassium supplements given Discussed with RN June 14: Due dialysis today Status: Remains intubated on ventilator June 22: Status unchanged Dialyzed yesterday and duefordialysistomorrow Serum sodium stable today June 21 Remains intubated on ventilator Due dialysis today Emphasized high sodium bath for dialysis June 20: Remains intubated on ventilator Dialyzed June 19 next dialysis June 21 Serum sodium 128, will give 250 cc 3% saline Remains full code Discussed with RN Iron panel ordered June 19: Discussed with RN. Patient due for dialysis today. Continue pulmonary support. Remains full code. June 18: Patient dialyzed yesterday June 17 Serum sodium improved but still low Arrange for dialysis tomorrow June 19 Continue per consultants June 17: Due for dialysis today Today's lab reviewed, low serum sodium noted, Emphasized on high sodium bath to dialysis nurse Discussed with SHANIQUE Yuen June 16: Dialyzed yesterday Remains intubated Labs reviewed, serum sodium 131 Plan to dialyze tomorrow June 17 with high sodium bath Discussed with SHANIQUE Yuen June 6: Due for dialysis today Labs reviewed Discussed with RN Transfuse 1 unit of packed RBCs today for low hemoglobin of 7.1 June 5: Blood pressure well maintained Receive dialysis June 13 next hemodialysis June 15June 4: Discussed with RN in ICU Patient did not receive proper dialysis yesterday due to dialysis catheter malfunction Catheter to be adjusted today and dialyzed to be resumed today Continue per consultants Positive for COVID 28 June 2: Patient now intubated on mechanical ventilation Discussed with SHANIQUE Yuen, today June 12 Patient received dialysis yesterday June 10 next hemodialysis June 12 Blood pressure better maintained Today's labs reviewed Continue per consultants Previously patient received dialysis last evening June 05, next dialysis June 07 which was incomplete due to patient's hypotension Will start on midodrine for blood pressure support. Meanwhile continue other pressors as needed Previously Patient is doing poorly, septic, white blood cells are rising, Hypotension somewhat improved We will keep n.p.o. , NG tube for medications, and change medication to IV as needed Patient remains full code Monitor vancomycin level Previously: Patient pulled out his femoral catheter yesterday June 03 which was reinserted by Dr. Mast Patient scheduled for dialysis again June 04, which again was not done due to dialysis nurse citing catheter malfunction Meanwhile continue management per ID, pulmonary , and psych. Meanwhile white blood cell count is rising. Patient blood pressure borderline low. Will check ABG Previously May 31 : I believe patient need dialysis treatment He however needs to competency assessment if can make decisions or not I will communicate with Dr. Mulligan Previously: Per pulmonary and ID advice Adjust blood pressure medication Renal diet Anemia work-up 2D echocardiogram refused Kidney ultrasound refused Jules catheter Urine studies Per orders Subjective ROS Limited/Unobtainable: Yes Objective Objective Last 24 Hour Vital Signs Date Time Temp Pulse Resp B/P (MAP) Pulse Ox O2 Delivery O2 Flow Rate FiO2 07/27/19 10:43 93 26 100 Mechanical Ventilator 30 94 26 30 07/27/19 10:30 94 26 115/57 (76) 100 07/27/19 10:00 86 18 130/64 (86) 100 07/27/19 09:47 100 07/27/19 09:30 86 24 142/70 (94) 100 07/27/19 09:00 91 11 135/68 (90) 100 07/27/19 08:30 92 21 127/57 (80) 100 07/27/19 08:00 99.2 99 20 142/79 (100) 99 07/27/19 08:00 30 07/27/19 08:00 Mechanical Ventilator 07/27/19 07:30 95 23 138/65 (89) 99 07/27/19 07:01 80 27 30 07/27/19 07:00 90 27 145/72 (96) 99 07/27/19 06:30 86 18 79/44 (56) 99 07/27/19 06:30 89 28 07/27/19 06:00 86 0 79/44 (56) 98 07/27/19 05:30 94 19 104/57 (73) 89 07/27/19 05:00 93 24 98/68 (78) 99 07/27/19 04:00 26 114/59 Mechanical Ventilator 100 07/27/19 04:00 89 26 114/59 (77) 92 07/27/19 04:00 89 07/27/19 04:00 Mechanical Ventilator 07/27/19 04:00 30 07/27/19 03:30 86 26 115/54 (74) 07/27/19 03:00 28 122/64 Mechanical Ventilator 100 07/27/19 03:00 87 28 122/64 (83) 07/27/19 03:00 89 27 100 Mechanical Ventilator 30 88 29 30 07/27/19 02:00 30 114/60 Mechanical Ventilator 30 07/27/19 02:00 85 28 114/60 (78) 07/27/19 01:00 83 25 107/55 (72) 07/27/19 01:00 25 107/55 Mechanical Ventilator 30 07/27/19 00:30 83 38 102/54 (70) 07/27/19 00:00 30 07/27/19 00:00 84 07/27/19 00:00 25 110/64 Mechanical Ventilator 30 07/27/19 00:00 Mechanical Ventilator 07/27/19 00:00 99.2 84 51 110/64 (79) 07/26/19 23:30 85 21 110/54 (72) 99 07/26/19 23:04 86 30 100 Mechanical Ventilator 30 85 30 30 07/26/19 23:00 86 27 101/63 (76) 90 07/26/19 23:00 25 101/63 Mechanical Ventilator 30 07/26/19 22:00 93 26 90/54 (66) 100 07/26/19 22:00 26 90/54 Mechanical Ventilator 30 07/26/19 21:35 26 157/66 30 07/26/19 21:30 100 27 157/66 (96) 100 07/26/19 21:00 29 108/59 Mechanical Ventilator 30 07/26/19 21:00 88 29 108/59 (75) 100 07/26/19 20:30 89 30 106/54 (71) 100 07/26/19 20:00 Mechanical Ventilator 07/26/19 20:00 33 112/61 Mechanical Ventilator 30 07/26/19 20:00 99.4 90 33 112/61 (78) 100 07/26/19 20:00 90 07/26/19 20:00 30 07/26/19 19:30 89 18 121/63 (82) 100 07/26/19 19:27 85 26 100 Mechanical Ventilator 30 84 26 30 07/26/19 19:00 88 27 115/59 (77) 100 07/26/19 19:00 27 115/59 Mechanical Ventilator 30 07/26/19 18:30 90 7 93/58 (70) 100 07/26/19 18:00 26 120/67 Mechanical Ventilator 30 07/26/19 18:00 96 27 120/67 (84) 100 07/26/19 17:30 96 29 115/61 (79) 100 07/26/19 17:00 98 2 125/61 (82) 99 07/26/19 17:00 125/61 07/26/19 17:00 16 125/61 Mechanical Ventilator 30 07/26/19 16:30 92 29 120/66 (84) 100 07/26/19 16:00 98 07/26/19 16:00 30 07/26/19 16:00 123/62 07/26/19 16:00 28 123/62 Mechanical Ventilator 28 07/26/19 16:00 Mechanical Ventilator 07/26/19 16:00 99.2 93 41 118/75 (89) 100 07/26/19 15:30 107 12 102/60 (74) 100 07/26/19 15:09 105 28 30 07/26/19 15:00 108/78 07/26/19 15:00 24 108/78 Mechanical Ventilator 30 07/26/19 15:00 96 24 118/74 (89) 100 07/26/19 14:30 101 26 119/66 (83) 100 07/26/19 14:00 97 18 103/70 (81) 100 07/26/19 14:00 103/70 07/26/19 14:00 22 103/70 Mechanical Ventilator 30 07/26/19 13:30 111 27 119/79 (92) 100 Intake and Output 07/26/19 07/27/19 19:00 07:00 Intake Total 648.70 ml 577.08 ml Output Total 1000 ml 0 ml Balance -351.30 ml 577.08 ml Free Water 150 ml 150 ml IV Total 78.70 ml 42.08 ml Tube Feeding 420 ml 385 ml Output Urine Total 0 ml 0 ml Hemodialysis UF 1000 ml # Bowel Movements 1 3 Laboratory Tests 07/27/19 03:15: Random Vancomycin Level 17.1 No can panel today Height (Feet): 6 Height (Inches): 1.00 Weight (Pounds): 186 General Appearance: no apparent distress EENT: other - Trach and vent Cardiovascular: tachycardia Respiratory/Chest: decreased breath sounds Abdomen: soft, distended Objective No change Mic Cole MD Jul 27, 2019 13:04
--- NOTE | 2019-07-27 15:33 | Surgery Progress Note ---
Surgery Progress Note Subjective Procedure Performed Right femoral temporary hemodialysis catheter removal Additional Comments leukocytosis anemia no n/v/f/c labs ntoed Objective Last 24 Hour Vital Signs Date Time Temp Pulse Resp B/P (MAP) Pulse Ox O2 Delivery O2 Flow Rate FiO2 07/27/19 14:00 86 27 116/66 (83) 100 07/27/19 13:30 85 26 111/67 (82) 100 07/27/19 13:00 26 90/51 Mechanical Ventilator 30 07/27/19 13:00 75 26 115/56 (75) 100 07/27/19 12:30 76 28 90/51 (64) 100 07/27/19 12:00 30 07/27/19 12:00 Mechanical Ventilator 07/27/19 12:00 86 07/27/19 12:00 26 97/62 Mechanical Ventilator 30 07/27/19 12:00 82 28 105/55 (72) 100 07/27/19 11:30 81 26 97/62 (74) 100 07/27/19 11:00 85 26 100/53 (69) 100 07/27/19 11:00 26 100/53 Mechanical Ventilator 30 07/27/19 10:43 93 26 100 Mechanical Ventilator 30 94 26 30 07/27/19 10:30 94 26 115/57 (76) 100 07/27/19 10:00 86 18 130/64 (86) 100 07/27/19 10:00 26 130/64 Mechanical Ventilator 30 07/27/19 09:47 100 07/27/19 09:30 86 24 142/70 (94) 100 07/27/19 09:00 91 11 135/68 (90) 100 07/27/19 09:00 20 135/68 Mechanical Ventilator 30 07/27/19 08:30 92 21 127/57 (80) 100 07/27/19 08:00 99.2 99 20 142/79 (100) 99 07/27/19 08:00 85 07/27/19 08:00 30 07/27/19 08:00 26 142/79 Mechanical Ventilator 30 07/27/19 08:00 Mechanical Ventilator 07/27/19 07:30 95 23 138/65 (89) 99 07/27/19 07:01 80 27 30 07/27/19 07:00 90 27 145/72 (96) 99 07/27/19 07:00 29 145/72 Mechanical Ventilator 30 07/27/19 06:30 86 18 79/44 (56) 99 07/27/19 06:30 89 28 07/27/19 06:00 86 0 79/44 (56) 98 07/27/19 05:30 94 19 104/57 (73) 89 07/27/19 05:00 93 24 98/68 (78) 99 07/27/19 04:00 26 114/59 Mechanical Ventilator 100 07/27/19 04:00 89 26 114/59 (77) 92 07/27/19 04:00 89 07/27/19 04:00 Mechanical Ventilator 07/27/19 04:00 30 07/27/19 03:30 86 26 115/54 (74) 07/27/19 03:00 28 122/64 Mechanical Ventilator 100 07/27/19 03:00 87 28 122/64 (83) 07/27/19 03:00 89 27 100 Mechanical Ventilator 30 88 29 30 07/27/19 02:00 30 114/60 Mechanical Ventilator 30 07/27/19 02:00 85 28 114/60 (78) 07/27/19 01:00 83 25 107/55 (72) 07/27/19 01:00 25 107/55 Mechanical Ventilator 30 07/27/19 00:30 83 38 102/54 (70) 07/27/19 00:00 30 07/27/19 00:00 84 07/27/19 00:00 25 110/64 Mechanical Ventilator 30 07/27/19 00:00 Mechanical Ventilator 07/27/19 00:00 99.2 84 51 110/64 (79) 07/26/19 23:30 85 21 110/54 (72) 99 07/26/19 23:04 86 30 100 Mechanical Ventilator 30 85 30 30 07/26/19 23:00 86 27 101/63 (76) 90 07/26/19 23:00 25 101/63 Mechanical Ventilator 30 07/26/19 22:00 93 26 90/54 (66) 100 07/26/19 22:00 26 90/54 Mechanical Ventilator 30 07/26/19 21:35 26 157/66 30 07/26/19 21:30 100 27 157/66 (96) 100 07/26/19 21:00 29 108/59 Mechanical Ventilator 30 6/15/20 21:00 88 29 108/59 (75) 100 07/26/19 20:30 89 30 106/54 (71) 100 07/26/19 20:00 Mechanical Ventilator 07/26/19 20:00 33 112/61 Mechanical Ventilator 30 07/26/19 20:00 99.4 90 33 112/61 (78) 100 07/26/19 20:00 90 07/26/19 20:00 30 07/26/19 19:30 89 18 121/63 (82) 100 07/26/19 19:27 85 26 100 Mechanical Ventilator 30 84 26 30 07/26/19 19:00 88 27 115/59 (77) 100 07/26/19 19:00 27 115/59 Mechanical Ventilator 30 07/26/19 18:30 90 7 93/58 (70) 100 07/26/19 18:00 26 120/67 Mechanical Ventilator 30 07/26/19 18:00 96 27 120/67 (84) 100 07/26/19 17:30 96 29 115/61 (79) 100 07/26/19 17:00 98 2 125/61 (82) 99 07/26/19 17:00 125/61 07/26/19 17:00 16 125/61 Mechanical Ventilator 30 07/26/19 16:30 92 29 120/66 (84) 100 07/26/19 16:00 98 07/26/19 16:00 30 07/26/19 16:00 123/62 07/26/19 16:00 28 123/62 Mechanical Ventilator 28 07/26/19 16:00 Mechanical Ventilator 07/26/19 16:00 99.2 93 41 118/75 (89) 100 I&O Intake and Output 07/26/19 07/27/19 19:00 07:00 Intake Total 648.70 ml 612.08 ml Output Total 1000 ml 0 ml Balance -351.30 ml 612.08 ml Free Water 150 ml 150 ml IV Total 78.70 ml 42.08 ml Tube Feeding 420 ml 420 ml Output Urine Total 0 ml 0 ml Hemodialysis UF 1000 ml # Bowel Movements 1 3 Dressing: other Wound: other Drains: other Cardiovascular: RSR Respiratory: decreased breath sounds Abdomen: soft, present bowel sounds Extremities: no cyanosis Laboratory Tests Test 07/27/19 03:15 Random Vancomycin Level 17.1 ug/mL Plan Problems: (1) Suspected COVID-19 virus infection (2) HTN (hypertension) (3) CASSANDRA (acute kidney injury) Assessment & Plan: Needs urgent HD needs access patient okay and consented see note will follow with recs new line placed discussed with team and nephrology HD line functional when checked has TPA now please use appropriately Cathflo used again this flow during dialysis on 430 was low. Will monitor may need line change 5/4 plan for HD as per renal may need to take fluid off with HD edema anasarca dressings saturated and changed will monitor cont with HD IJ left line placed for HD given extent of prior line in place. leukocytosis blood cx negative may need to change out line new line okay HD going well Continue HD as tolerated May need pressors for HD as needed (4) Anemia in chronic kidney disease (CKD) (5) Anemia (6) Renal failure (7) Suspected COVID-19 virus infection Assessment & Plan: Pt deconditioned and despite all skin preventions Pt noted to have developed several pressure injuries. . Stable dry eschar noted to clefts of R and L ears. No erythema noted . DTPI noted to L trochanter. Base of injury is maroon in colour with marginal erythema along borders. Partially opened DTPI Sacrum, R and L Buttocks. Base of wound is maroon with two small open wounds L sacrum and L buttocks. Pt has an APM/MOMO Mattress overlay and is being positioned with pillows as per tolerance and within protocols. worsening despite medical efforts will cont to provide therapy Tx.Plan: Apply Cavilon Skin Barrier to both ears Daily and prn. Apply Moisture Barrier Paste to Sacrum,R and L Buttocks. Cover with Optifoam drsgs. Change every 3 days and PRN. Apply Cavilon Skin Barrier to R and L trochanter. Cover each site with Optifoam drsgs.Change every 7 days and PRN. Apply Cavilon Skin Barrier to both heels. Cover each heel with Optifoam drsg. Change every 7 days and prn. Off-load heels with pillow. Reposition at least every 2hours or as tolerated. APM/MOMO Mattress overlay. (8) COVID-19 Assessment & Plan: COVID + c diff negative febrile leukocytosis renal insufficiency see above cont resp care Rx as per ID worsening on vent support now cxr noted on pressors prognosis guarded repeat covid ++ weaning vent and pressors off slowly showing improvement slowly recovering will need trach as unable to wean vent safely called and spoke with country conservatorship. consent obtained s/p trach pending peg worsening on levo max (9) Sepsis Assessment & Plan: worsening leukocytosis febrile on pressors discussed with ID. lines evaluated and clean. he is septic on pressors and needs central access in difficult venous access patient blood cultures negative will monitor Yaniv Mast Jul 27, 2019 15:33
--- NOTE | 2019-07-27 17:09 | General Progress Note ---
Assessment/Plan Problem List: (1) HTN (hypertension) ICD Codes: I10 - Essential (primary) hypertension SNOMED: 04137619 (2) CASSANDRA (acute kidney injury) ICD Codes: N17.9 - Acute kidney failure, unspecified SNOMED: 9570139, 34229581 (3) Anemia in chronic kidney disease (CKD) ICD Codes: N18.9 - Chronic kidney disease, unspecified; D63.1 - Anemia in chronic kidney disease SNOMED: 124823610 (4) Renal failure ICD Codes: N19 - Unspecified kidney failure SNOMED: 70255792 (5) Respiratory failure requiring intubation ICD Codes: J96.90 - Respiratory failure, unspecified, unspecified whether with hypoxia or hypercapnia; A41.89 - Other specified sepsis SNOMED: 974494790, 432398437 (6) Pneumonia due to COVID-19 virus ICD Codes: U07.1 - COVID-19; J12.89 - Other viral pneumonia SNOMED: 753335929, 113973776 (7) Sepsis due to severe acute respiratory syndrome coronavirus 2 (SARS-CoV-2) ICD Codes: U07.1 - COVID-19; A41.89 - Other specified sepsis SNOMED: 350157814, 328895266 Status: progressing, unchanged, deteriorating Assessment/Plan: favor comfort care check h/h and lytes asked for bioethics consulte since no family septic shock azotemia/renal failure s/p covid pna Subjective ROS Limited/Unobtainable: Yes Allergies: Coded Allergies: No Known Allergies (Unverified , 05/28/19) Objective Last 24 Hour Vital Signs Date Time Temp Pulse Resp B/P (MAP) Pulse Ox O2 Delivery O2 Flow Rate FiO2 07/27/19 17:00 84 18 131/69 (89) 100 07/27/19 16:30 80 25 127/64 (85) 100 07/27/19 16:00 81 21 128/66 (86) 100 07/27/19 16:00 85 07/27/19 15:30 84 24 128/67 (87) 100 07/27/19 15:29 81 26 100 Mechanical Ventilator 30 80 26 30 07/27/19 15:00 84 25 132/65 (87) 100 07/27/19 14:30 87 23 113/66 (82) 100 07/27/19 14:00 86 27 116/66 (83) 100 07/27/19 13:30 85 26 111/67 (82) 100 07/27/19 13:00 26 90/51 Mechanical Ventilator 30 07/27/19 13:00 75 26 115/56 (75) 100 07/27/19 12:30 76 28 90/51 (64) 100 07/27/19 12:00 30 07/27/19 12:00 Mechanical Ventilator 07/27/19 12:00 86 07/27/19 12:00 26 97/62 Mechanical Ventilator 30 07/27/19 12:00 82 28 105/55 (72) 100 07/27/19 11:30 81 26 97/62 (74) 100 07/27/19 11:00 85 26 100/53 (69) 100 07/27/19 11:00 26 100/53 Mechanical Ventilator 30 07/27/19 10:43 93 26 100 Mechanical Ventilator 30 94 26 30 07/27/19 10:30 94 26 115/57 (76) 100 07/27/19 10:00 86 18 130/64 (86) 100 07/27/19 10:00 26 130/64 Mechanical Ventilator 30 07/27/19 09:47 100 07/27/19 09:30 86 24 142/70 (94) 100 07/27/19 09:00 91 11 135/68 (90) 100 07/27/19 09:00 20 135/68 Mechanical Ventilator 30 07/27/19 08:30 92 21 127/57 (80) 100 07/27/19 08:00 99.2 99 20 142/79 (100) 99 07/27/19 08:00 85 07/27/19 08:00 30 07/27/19 08:00 26 142/79 Mechanical Ventilator 30 07/27/19 08:00 Mechanical Ventilator 07/27/19 07:30 95 23 138/65 (89) 99 07/27/19 07:01 80 27 30 07/27/19 07:00 90 27 145/72 (96) 99 07/27/19 07:00 29 145/72 Mechanical Ventilator 30 07/27/19 06:30 86 18 79/44 (56) 99 07/27/19 06:30 89 28 07/27/19 06:00 86 0 79/44 (56) 98 07/27/19 05:30 94 19 104/57 (73) 89 07/27/19 05:00 93 24 98/68 (78) 99 07/27/19 04:00 26 114/59 Mechanical Ventilator 100 07/27/19 04:00 89 26 114/59 (77) 92 07/27/19 04:00 89 07/27/19 04:00 Mechanical Ventilator 07/27/19 04:00 30 07/27/19 03:30 86 26 115/54 (74) 07/27/19 03:00 28 122/64 Mechanical Ventilator 100 07/27/19 03:00 87 28 122/64 (83) 07/27/19 03:00 89 27 100 Mechanical Ventilator 30 88 29 30 07/27/19 02:00 30 114/60 Mechanical Ventilator 30 07/27/19 02:00 85 28 114/60 (78) 07/27/19 01:00 83 25 107/55 (72) 07/27/19 01:00 25 107/55 Mechanical Ventilator 30 07/27/19 00:30 83 38 102/54 (70) 07/27/19 00:00 30 07/27/19 00:00 84 07/27/19 00:00 25 110/64 Mechanical Ventilator 30 07/27/19 00:00 Mechanical Ventilator 07/27/19 00:00 99.2 84 51 110/64 (79) 07/26/19 23:30 85 21 110/54 (72) 99 07/26/19 23:04 86 30 100 Mechanical Ventilator 30 85 30 30 07/26/19 23:00 86 27 101/63 (76) 90 07/26/19 23:00 25 101/63 Mechanical Ventilator 30 07/26/19 22:00 93 26 90/54 (66) 100 07/26/19 22:00 26 90/54 Mechanical Ventilator 30 07/26/19 21:35 26 157/66 30 07/26/19 21:30 100 27 157/66 (96) 100 07/26/19 21:00 29 108/59 Mechanical Ventilator 30 07/26/19 21:00 88 29 108/59 (75) 100 07/26/19 20:30 89 30 106/54 (71) 100 07/26/19 20:00 Mechanical Ventilator 07/26/19 20:00 33 112/61 Mechanical Ventilator 30 07/26/19 20:00 99.4 90 33 112/61 (78) 100 07/26/19 20:00 90 07/26/19 20:00 30 07/26/19 19:30 89 18 121/63 (82) 100 07/26/19 19:27 85 26 100 Mechanical Ventilator 30 84 26 30 07/26/19 19:00 88 27 115/59 (77) 100 07/26/19 19:00 27 115/59 Mechanical Ventilator 30 07/26/19 18:30 90 7 93/58 (70) 100 07/26/19 18:00 26 120/67 Mechanical Ventilator 30 07/26/19 18:00 96 27 120/67 (84) 100 07/26/19 17:30 96 29 115/61 (79) 100 Intake and Output 07/26/19 07/27/19 19:00 07:00 Intake Total 648.70 ml 612.08 ml Output Total 1000 ml 0 ml Balance -351.30 ml 612.08 ml Free Water 150 ml 150 ml IV Total 78.70 ml 42.08 ml Tube Feeding 420 ml 420 ml Output Urine Total 0 ml 0 ml Hemodialysis UF 1000 ml # Bowel Movements 1 3 Laboratory Tests 07/27/19 03:15: Random Vancomycin Level 17.1 Height (Feet): 6 Height (Inches): 1.00 Weight (Pounds): 186 Karishma Mulligan MD Jul 27, 2019 17:09
[2019-07-27] MEDS: Dyna-Hex 2% Top Sol 2oz TOPIC SCH (19:25)
[2019-07-28] VITALS (33 sets, daily range): BP systolic 107–164; BP diastolic 59–100
[2019-07-28] MEDS: Albuterol 90mcg Inhaler 8gm INH SCH ×6 (04:03→23:04)
[2019-07-28 05:08] LABS: BASOPHILS % (AUTO) 1.5 % (0.0-2.0); EOSINOPHILS % (AUTO) 4.6 % (0.0-3.0); HEMATOCRIT 28.2 % (42.0-52.0); HEMOGLOBIN 8.2 G/DL (14.2-18.0); LYMPHOCYTES % (AUTO) 12.6 % (20.0-45.0); MEAN CORPUSCULAR VOLUME 100 FL (80-99); MONOCYTES % (AUTO) 7.7 % (1.0-10.0); NEUTROPHILS % (AUTO) 73.6 % (45.0-75.0); PLATELET COUNT 363 K/UL (150-450); RED BLOOD COUNT 2.83 M/UL (4.70-6.10); RED CELL DISTRIBUTION WIDTH 17.8 % (11.6-14.8); WHITE BLOOD COUNT 14.2 K/UL (4.8-10.8)
[2019-07-28 05:37] LABS: ALANINE AMINOTRANSFERASE 12 U/L (12-78); ALBUMIN 2.6 G/DL (3.4-5.0); ALBUMIN/GLOBULIN RATIO 0.5 (1.0-2.7); ALKALINE PHOSPHATASE 117 U/L (46-116); ANION GAP 13 mmol/L (5-15); ASPARTATE AMINO TRANSFERASE 21 U/L (15-37); BILIRUBIN,TOTAL 0.4 MG/DL (0.2-1.0); BLOOD UREA NITROGEN 70 mg/dL (7-18); CALCIUM 9.6 MG/DL (8.5-10.1); CARBON DIOXIDE 26 MMOL/L (21-32); CHLORIDE 103 MMOL/L (98-107); CREATININE 8.9 MG/DL (0.55-1.30); PHOSPHORUS 2.1 MG/DL (2.5-4.9); POTASSIUM 3.9 MMOL/L (3.5-5.1); SODIUM 142 MMOL/L (136-145)
[2019-07-28] MEDS: Renvela 2400 mg pkt NG SCH (06:13)
[2019-07-28] MEDS: Midodrine 10mg tab ORAL SCH ×3 (06:13→21:16)
[2019-07-28] MEDS: NovoLOG Insulin Flexpen SUBQ SCH ×3 (06:23→18:14)
--- NOTE | 2019-07-28 07:00 | Pulmonolgy Critical Care Note ---
Critical Care - Asmt/Plan Assessment/Plan: Pulmonary CCM Progress Note HPI: Patient is a 68 year old man, jail resident, admitted c/o shortness of breath, cough, noted to have Covid 19 Pneumonia, Respiratory Failure Remains on Ventilator, CXR infiltrates stable Septic Shock, remains on pressors - Mitodrine , Levophed PRN, not tolerating weaning, will need placement, repeat COVID19 test now negative Preserved EF FIO2 40%, P5, adequate O2 sats, remains on ACVC, s/p Tracheostomy previously, sp PEG ID following Seen earlier on 07/27/2019 Past Medical History: COPD, CKD, Hypertension, Anemia Allergies: No Known Allergies Improving Pulmonary Status on HD Physical Exam Vital Signs Noted Stable on ventilator Chronically ill appearing HEENT: moist mm, trach Chest: Occasional rhonchi, BS equal bilaterally Heart: HS1, HS2, RRR Abdomen: SNTND G tube Extremities: No edema, well perfused [employer]AD[employer]: Non focal, sedated Impression: COVID-19 virus infection Pneumonia Respiratory failure on ventilator, wean as tolerated once off pressors CKD - on HD Hypotension on pressors previously Cardiomegaly Lymphopenia Elevated AST COPD Chronic Kidney Disease - HD H/o Hypertension Worsening anemia Plan: SP Tracheostomy / G tube Antibiotics per ID HD Pressors PRN ACVC - wean as tolerated [employer] Medications 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 Monitor cultures/viral studies PPX Hemodialysis per Renal Psychiatry following Laboratory Tests Noted: CXR: Hypoventilatory exam, interstitial changes, cardiomegaly, improving infiltrates Subjective ROS Limited/Unobtainable: No Constitutional: Denies: fever Respiratory: Reports: dry cough, shortness of breath Gastrointestinal/Abdominal: Reports: diarrhea, other - colace was stopped Psychiatric: Reports: other - refuses labs Allergies: Coded Allergies: No Known Allergies (Unverified , 05/28/19) All Systems: reviewed and negative except above Labs noted Critical Care - Objective Last 24 Hour Vital Signs Date Time Temp Pulse Resp B/P (MAP) Pulse Ox O2 Delivery O2 Flow Rate FiO2 07/28/19 06:30 104 28 07/28/19 06:00 104 24 129/74 (92) 100 07/28/19 05:00 103 1 120/69 (86) 100 07/28/19 04:00 30 07/28/19 04:00 107 23 119/64 (82) 100 07/28/19 04:00 23 119/64 Mechanical Ventilator 30 07/28/19 04:00 107 07/28/19 04:00 Mechanical Ventilator 07/28/19 03:30 106 27 100 Mechanical Ventilator 30 109 27 30 07/28/19 03:00 86 15 140/63 (88) 100 07/28/19 03:00 25 140/63 Mechanical Ventilator 30 07/28/19 02:00 82 23 130/61 (84) 100 07/28/19 02:00 23 130/61 Mechanical Ventilator 30 07/28/19 01:30 79 18 127/65 (85) 100 07/28/19 01:00 23 121/71 Mechanical Ventilator 30 07/28/19 01:00 76 23 121/71 (88) 100 07/28/19 00:30 84 22 107/61 (76) 100 07/28/19 00:00 79 07/28/19 00:00 30 07/28/19 00:00 79 17 119/61 (80) 100 07/28/19 00:00 Mechanical Ventilator 07/28/19 00:00 23 108/50 Mechanical Ventilator 30 07/27/19 23:41 84 28 100 Mechanical Ventilator 30 85 26 30 07/27/19 23:30 88 12 134/63 (86) 100 07/27/19 23:00 27 120/59 Mechanical Ventilator 30 07/27/19 23:00 87 8 120/59 (79) 100 07/27/19 22:00 27 112/57 Mechanical Ventilator 30 07/27/19 22:00 79 27 112/57 (75) 100 07/27/19 21:00 71 27 99/52 (68) 100 07/27/19 21:00 27 99/52 Mechanical Ventilator 30 07/27/19 20:00 81 07/27/19 20:00 27 106/68 Mechanical Ventilator 30 07/27/19 20:00 98.9 78 27 106/68 (81) 100 07/27/19 20:00 Mechanical Ventilator 07/27/19 20:00 30 07/27/19 19:50 79 26 100 Mechanical Ventilator 30 80 27 30 07/27/19 19:30 75 27 100/51 (67) 100 07/27/19 19:00 80 25 92/50 (64) 100 07/27/19 19:00 25 92/50 Mechanical Ventilator 30 07/27/19 18:00 80 0 90/54 (66) 100 07/27/19 18:00 25 90/54 Mechanical Ventilator 30 07/27/19 17:00 84 18 131/69 (89) 100 07/27/19 17:00 22 131/69 Mechanical Ventilator 30 07/27/19 16:30 80 25 127/64 (85) 100 07/27/19 16:15 131/69 07/27/19 16:00 Mechanical Ventilator 07/27/19 16:00 30 07/27/19 16:00 25 128/66 Mechanical Ventilator 30 07/27/19 16:00 81 21 128/66 (86) 100 07/27/19 16:00 98.4 81 21 128/66 (86) 100 07/27/19 16:00 85 07/27/19 15:30 84 24 128/67 (87) 100 07/27/19 15:29 81 26 100 Mechanical Ventilator 30 80 26 30 07/27/19 15:00 18 132/65 Mechanical Ventilator 30 07/27/19 15:00 84 25 132/65 (87) 100 07/27/19 14:30 87 23 113/66 (82) 100 07/27/19 14:00 86 27 116/66 (83) 100 07/27/19 14:00 24 111/58 Mechanical Ventilator 30 07/27/19 13:30 85 26 111/67 (82) 100 07/27/19 13:00 26 90/51 Mechanical Ventilator 30 07/27/19 13:00 75 26 115/56 (75) 100 07/27/19 12:30 76 28 90/51 (64) 100 07/27/19 12:00 30 07/27/19 12:00 Mechanical Ventilator 07/27/19 12:00 86 07/27/19 12:00 26 97/62 Mechanical Ventilator 30 07/27/19 12:00 82 28 105/55 (72) 100 07/27/19 12:00 98.6 82 28 105/55 (72) 100 07/27/19 11:30 81 26 97/62 (74) 100 07/27/19 11:00 85 26 100/53 (69) 100 07/27/19 11:00 26 100/53 Mechanical Ventilator 30 07/27/19 10:43 93 26 100 Mechanical Ventilator 30 94 26 30 07/27/19 10:30 94 26 115/57 (76) 100 07/27/19 10:00 86 18 130/64 (86) 100 07/27/19 10:00 26 130/64 Mechanical Ventilator 30 07/27/19 09:47 100 07/27/19 09:30 86 24 142/70 (94) 100 07/27/19 09:00 91 11 135/68 (90) 100 07/27/19 09:00 20 135/68 Mechanical Ventilator 30 07/27/19 08:30 92 21 127/57 (80) 100 07/27/19 08:00 99.2 99 20 142/79 (100) 99 07/27/19 08:00 85 07/27/19 08:00 30 07/27/19 08:00 26 142/79 Mechanical Ventilator 30 07/27/19 08:00 Mechanical Ventilator 07/27/19 07:30 95 23 138/65 (89) 99 07/27/19 07:01 80 27 30 07/27/19 07:00 90 27 145/72 (96) 99 07/27/19 07:00 29 145/72 Mechanical Ventilator 30 Micro: Microbiology Date/Time Source Procedure Growth Status 07/27/19 18:41 Nasopharynx Coronavirus COVID-19 PCR ([facility]) - Final Complete Accucheck: 159 Critical Care - Subjective ROS Limited/Unobtainable: No Condition: critical IV Access: central FI02: 30 Vent Support Breath Rate: 26 Vent Support Mode: AC Vent Tidal Volume: 500 Sputum Amount: Moderate PEEP: 5.0 PIP: 25 Tube Feeding Amount: 35 I&O: Intake and Output 07/27/19 07/28/19 19:00 07:00 Intake Total 630 ml 530 ml Balance 630 ml 530 ml Free Water 150 ml 100 ml IV Total 60 ml 45 ml Tube Feeding 420 ml 385 ml # Bowel Movements 2 3 ET-Tube: 7.5 ET Position: 24 Arturo Mckeon MD Jul 28, 2019 07:00
[2019-07-28] MEDS: Pantoprazole Inj IVP SCH (08:08)
[2019-07-28] MEDS: Enoxaparin 30mg Inj SUBQ SCH (08:08)
[2019-07-28] MEDS: Acetaminophen 650mg/20.3ml NG PRN (08:09)
--- NOTE | 2019-07-28 09:30 | General Progress Note ---
Assessment/Plan Status: progressing, unchanged, deteriorating Assessment/Plan: 1. Diabetes. 2. Hypertension. 3. Coronary artery disease. 4. COPD. 5. Psychiatric disorder with schizophrenia. 6. History of hepatitis C. 7. HLP. 8. Chronic kidney disease, now with acute renal failure. 9. Anemia. 10. Hypothyroidism. 11. Spinal stenosis. 12. Constipation. 13. GERD. 14. COVID positive HD per nephrology fu labs icu care s/p PEG GTF increae to 45 cc monitor for residuals Subjective ROS Limited/Unobtainable: No Allergies: Coded Allergies: No Known Allergies (Unverified , 05/28/19) Objective Last 24 Hour Vital Signs Date Time Temp Pulse Resp B/P (MAP) Pulse Ox O2 Delivery O2 Flow Rate FiO2 07/28/19 09:00 89 20 142/74 (96) 98 07/28/19 08:30 90 17 140/73 (95) 99 07/28/19 08:00 98.7 89 26 121/59 (79) 99 07/28/19 08:00 88 07/28/19 08:00 Mechanical Ventilator 07/28/19 08:00 30 07/28/19 07:30 92 19 129/72 (91) 100 07/28/19 07:11 96 26 100 Mechanical Ventilator 30 96 26 30 07/28/19 07:00 96 23 126/69 (88) 100 07/28/19 06:30 104 28 07/28/19 06:00 104 24 129/74 (92) 100 07/28/19 05:00 103 1 120/69 (86) 100 07/28/19 04:00 30 07/28/19 04:00 107 23 119/64 (82) 100 07/28/19 04:00 23 119/64 Mechanical Ventilator 30 07/28/19 04:00 107 07/28/19 04:00 Mechanical Ventilator 07/28/19 03:30 106 27 100 Mechanical Ventilator 30 109 27 30 07/28/19 03:00 86 15 140/63 (88) 100 07/28/19 03:00 25 140/63 Mechanical Ventilator 30 07/28/19 02:00 82 23 130/61 (84) 100 07/28/19 02:00 23 130/61 Mechanical Ventilator 30 07/28/19 01:30 79 18 127/65 (85) 100 07/28/19 01:00 23 121/71 Mechanical Ventilator 30 07/28/19 01:00 76 23 121/71 (88) 100 07/28/19 00:30 84 22 107/61 (76) 100 07/28/19 00:00 79 07/28/19 00:00 30 07/28/19 00:00 79 17 119/61 (80) 100 07/28/19 00:00 Mechanical Ventilator 07/28/19 00:00 23 108/50 Mechanical Ventilator 30 07/27/19 23:41 84 28 100 Mechanical Ventilator 30 85 26 30 07/27/19 23:30 88 12 134/63 (86) 100 07/27/19 23:00 27 120/59 Mechanical Ventilator 30 07/27/19 23:00 87 8 120/59 (79) 100 07/27/19 22:00 27 112/57 Mechanical Ventilator 30 07/27/19 22:00 79 27 112/57 (75) 100 07/27/19 21:00 71 27 99/52 (68) 100 07/27/19 21:00 27 99/52 Mechanical Ventilator 30 07/27/19 20:00 81 07/27/19 20:00 27 106/68 Mechanical Ventilator 30 07/27/19 20:00 98.9 78 27 106/68 (81) 100 07/27/19 20:00 Mechanical Ventilator 07/27/19 20:00 30 07/27/19 19:50 79 26 100 Mechanical Ventilator 30 80 27 30 07/27/19 19:30 75 27 100/51 (67) 100 07/27/19 19:00 80 25 92/50 (64) 100 07/27/19 19:00 25 92/50 Mechanical Ventilator 30 07/27/19 18:00 80 0 90/54 (66) 100 07/27/19 18:00 25 90/54 Mechanical Ventilator 30 07/27/19 17:00 84 18 131/69 (89) 100 07/27/19 17:00 22 131/69 Mechanical Ventilator 30 07/27/19 16:30 80 25 127/64 (85) 100 07/27/19 16:15 131/69 07/27/19 16:00 Mechanical Ventilator 07/27/19 16:00 30 07/27/19 16:00 25 128/66 Mechanical Ventilator 30 07/27/19 16:00 81 21 128/66 (86) 100 07/27/19 16:00 98.4 81 21 128/66 (86) 100 07/27/19 16:00 85 07/27/19 15:30 84 24 128/67 (87) 100 07/27/19 15:29 81 26 100 Mechanical Ventilator 30 80 26 30 07/27/19 15:00 18 132/65 Mechanical Ventilator 30 07/27/19 15:00 84 25 132/65 (87) 100 07/27/19 14:30 87 23 113/66 (82) 100 07/27/19 14:00 86 27 116/66 (83) 100 07/27/19 14:00 24 111/58 Mechanical Ventilator 30 07/27/19 13:30 85 26 111/67 (82) 100 07/27/19 13:00 26 90/51 Mechanical Ventilator 30 07/27/19 13:00 75 26 115/56 (75) 100 07/27/19 12:30 76 28 90/51 (64) 100 07/27/19 12:00 30 07/27/19 12:00 Mechanical Ventilator 07/27/19 12:00 86 07/27/19 12:00 26 97/62 Mechanical Ventilator 30 07/27/19 12:00 82 28 105/55 (72) 100 07/27/19 12:00 98.6 82 28 105/55 (72) 100 07/27/19 11:30 81 26 97/62 (74) 100 07/27/19 11:00 85 26 100/53 (69) 100 07/27/19 11:00 26 100/53 Mechanical Ventilator 30 07/27/19 10:43 93 26 100 Mechanical Ventilator 30 94 26 30 07/27/19 10:30 94 26 115/57 (76) 100 07/27/19 10:00 86 18 130/64 (86) 100 07/27/19 10:00 26 130/64 Mechanical Ventilator 30 07/27/19 09:47 100 07/27/19 09:30 86 24 142/70 (94) 100 Intake and Output 07/27/19 07/28/19 19:00 07:00 Intake Total 630 ml 530 ml Balance 630 ml 530 ml Free Water 150 ml 100 ml IV Total 60 ml 45 ml Tube Feeding 420 ml 385 ml # Bowel Movements 2 3 Laboratory Tests 07/28/19 03:05: White Blood Count 14.2H, Red Blood Count 2.83L, Hemoglobin 8.2L, Hematocrit 28.2L, Mean Corpuscular Volume 100H, Mean Corpuscular Hemoglobin 28.9, Mean Corpuscular Hemoglobin Concent 29.0L, Red Cell Distribution Width 17.8H, Platelet Count 363, Mean Platelet Volume 7.4, Neutrophils (%) (Auto) 73.6, Lymphocytes (%) (Auto) 12.6L, Monocytes (%) (Auto) 7.7, Eosinophils (%) (Auto) 4.6H, Basophils (%) (Auto) 1.5, Sodium Level 142, Potassium Level 3.9, Chloride Level 103, Carbon Dioxide Level 26, Anion Gap 13, Blood Urea Nitrogen 70H, Creatinine 8.9H, Estimat Glomerular Filtration Rate 6.0, Glucose Level 160H, Calcium Level 9.6, Phosphorus Level 2.1L, Magnesium Level 2.9H, Total Bilirubin 0.4, Aspartate Amino Transf (AST/SGOT) 21, Alanine Aminotransferase (ALT/SGPT) 12, Alkaline Phosphatase 117H, C-Reactive Protein, Quantitative 6.4H, Total Protein 7.9, Albumin 2.6L, Globulin 5.3, Albumin/Globulin Ratio 0.5L Height (Feet): 6 Height (Inches): 1.00 Weight (Pounds): 165 General Appearance: no apparent distress, lethargic EENT: normal ENT inspection Neck: supple Cardiovascular: normal rate Respiratory/Chest: decreased breath sounds Abdomen: normal bowel sounds, non tender, soft Extremities: non-tender Marito Ramires MD Jul 28, 2019 09:30
--- NOTE | 2019-07-28 10:21 | Infectious Diseases Prog Note ---
Assessment/Plan Assessment/Plan IMPRESSION: 1. COVID19 pneumonia Positive: 05/27, 05/31 , 06/05, 06/09 ,06/17, 06/19, 06/23, 06/27, 07/03, 07/15 Negative: 07/26 2. MRSA carrier. 3. Chronic kidney disease , end-stage renal disease. 4. COPD. 5. Hypertension. 6. Anemia. 7. Hypothyroidism. 8. Hyperlipidemia. 9. Major depression. 10. Leukocytosis 11. Hypotension 12. Hepatitis C 13. Hyperuricemia 14. Diarrhea 15. septic shock 16. Leukocytosis improving 17. Pneumonia with Staph aureus ( MRSA) 18. Bacteremia with Staph coagulase negative RECOMMENDATIONS: Continue IV Vancomycin Will repeat COVID19 test for transfer to [place] Case was D/W RN Subjective ROS Limited/Unobtainable: Yes Constitutional: Denies: fever Neurologic: Reports: confusion, other - on restraint Allergies: Coded Allergies: No Known Allergies (Unverified , 05/28/19) Objective Vital Signs Last 24 Hour Vital Signs Date Time Temp Pulse Resp B/P (MAP) Pulse Ox O2 Delivery O2 Flow Rate FiO2 07/28/19 09:45 100 07/28/19 09:00 89 20 142/74 (96) 98 07/28/19 08:30 90 17 140/73 (95) 99 07/28/19 08:00 98.7 89 26 121/59 (79) 99 07/28/19 08:00 88 07/28/19 08:00 Mechanical Ventilator 07/28/19 08:00 30 07/28/19 07:30 92 19 129/72 (91) 100 07/28/19 07:11 96 26 100 Mechanical Ventilator 30 96 26 30 07/28/19 07:00 96 23 126/69 (88) 100 07/28/19 06:30 104 28 07/28/19 06:00 104 24 129/74 (92) 100 07/28/19 05:00 103 1 120/69 (86) 100 07/28/19 04:00 30 07/28/19 04:00 107 23 119/64 (82) 100 07/28/19 04:00 23 119/64 Mechanical Ventilator 30 07/28/19 04:00 107 07/28/19 04:00 Mechanical Ventilator 07/28/19 03:30 106 27 100 Mechanical Ventilator 30 109 27 30 07/28/19 03:00 86 15 140/63 (88) 100 07/28/19 03:00 25 140/63 Mechanical Ventilator 30 07/28/19 02:00 82 23 130/61 (84) 100 07/28/19 02:00 23 130/61 Mechanical Ventilator 30 07/28/19 01:30 79 18 127/65 (85) 100 07/28/19 01:00 23 121/71 Mechanical Ventilator 30 07/28/19 01:00 76 23 121/71 (88) 100 07/28/19 00:30 84 22 107/61 (76) 100 07/28/19 00:00 79 07/28/19 00:00 30 07/28/19 00:00 79 17 119/61 (80) 100 07/28/19 00:00 Mechanical Ventilator 07/28/19 00:00 23 108/50 Mechanical Ventilator 30 07/27/19 23:41 84 28 100 Mechanical Ventilator 30 85 26 30 07/27/19 23:30 88 12 134/63 (86) 100 07/27/19 23:00 27 120/59 Mechanical Ventilator 30 07/27/19 23:00 87 8 120/59 (79) 100 07/27/19 22:00 27 112/57 Mechanical Ventilator 30 07/27/19 22:00 79 27 112/57 (75) 100 07/27/19 21:00 71 27 99/52 (68) 100 07/27/19 21:00 27 99/52 Mechanical Ventilator 30 07/27/19 20:00 81 07/27/19 20:00 27 106/68 Mechanical Ventilator 30 07/27/19 20:00 98.9 78 27 106/68 (81) 100 07/27/19 20:00 Mechanical Ventilator 07/27/19 20:00 30 07/27/19 19:50 79 26 100 Mechanical Ventilator 30 80 27 30 07/27/19 19:30 75 27 100/51 (67) 100 07/27/19 19:00 80 25 92/50 (64) 100 07/27/19 19:00 25 92/50 Mechanical Ventilator 30 07/27/19 18:00 80 0 90/54 (66) 100 07/27/19 18:00 25 90/54 Mechanical Ventilator 30 07/27/19 17:00 84 18 131/69 (89) 100 07/27/19 17:00 22 131/69 Mechanical Ventilator 30 07/27/19 16:30 80 25 127/64 (85) 100 07/27/19 16:15 131/69 07/27/19 16:00 Mechanical Ventilator 07/27/19 16:00 30 07/27/19 16:00 25 128/66 Mechanical Ventilator 30 07/27/19 16:00 81 21 128/66 (86) 100 07/27/19 16:00 98.4 81 21 128/66 (86) 100 07/27/19 16:00 85 07/27/19 15:30 84 24 128/67 (87) 100 07/27/19 15:29 81 26 100 Mechanical Ventilator 30 80 26 30 07/27/19 15:00 18 132/65 Mechanical Ventilator 30 07/27/19 15:00 84 25 132/65 (87) 100 07/27/19 14:30 87 23 113/66 (82) 100 07/27/19 14:00 86 27 116/66 (83) 100 07/27/19 14:00 24 111/58 Mechanical Ventilator 30 07/27/19 13:30 85 26 111/67 (82) 100 07/27/19 13:00 26 90/51 Mechanical Ventilator 30 07/27/19 13:00 75 26 115/56 (75) 100 07/27/19 12:30 76 28 90/51 (64) 100 07/27/19 12:00 30 07/27/19 12:00 Mechanical Ventilator 07/27/19 12:00 86 07/27/19 12:00 26 97/62 Mechanical Ventilator 30 07/27/19 12:00 82 28 105/55 (72) 100 07/27/19 12:00 98.6 82 28 105/55 (72) 100 07/27/19 11:30 81 26 97/62 (74) 100 07/27/19 11:00 85 26 100/53 (69) 100 07/27/19 11:00 26 100/53 Mechanical Ventilator 30 07/27/19 10:43 93 26 100 Mechanical Ventilator 30 94 26 30 07/27/19 10:30 94 26 115/57 (76) 100 Height (Feet): 6 Height (Inches): 1.00 Weight (Pounds): 165 HEENT: status post trach Respiratory/Chest: other - on ventilator Cardiovascular: normal rate, other - HD & Central line Abdomen: soft, non tender, other - GT feeding Extremities: no edema Neurologic/Psychiatric: disoriented Microbiology Date/Time Source Procedure Growth Status 07/27/19 18:41 Nasopharynx Coronavirus COVID-19 PCR ([facility]) - Final Complete Laboratory Tests Test 07/28/19 03:05 White Blood Count 14.2 K/UL (4.8-10.8) H Red Blood Count 2.83 M/UL (4.70-6.10) L Hemoglobin 8.2 G/DL (14.2-18.0) L Hematocrit 28.2 % (42.0-52.0) L Mean Corpuscular Volume 100 FL (80-99) H Mean Corpuscular Hemoglobin 28.9 PG (27.0-31.0) Mean Corpuscular Hemoglobin Concent 29.0 G/DL (32.0-36.0) L Red Cell Distribution Width 17.8 % (11.6-14.8) H Platelet Count 363 K/UL (150-450) Mean Platelet Volume 7.4 FL (6.5-10.1) Neutrophils (%) (Auto) 73.6 % (45.0-75.0) Lymphocytes (%) (Auto) 12.6 % (20.0-45.0) L Monocytes (%) (Auto) 7.7 % (1.0-10.0) Eosinophils (%) (Auto) 4.6 % (0.0-3.0) H Basophils (%) (Auto) 1.5 % (0.0-2.0) Sodium Level 142 MMOL/L (136-145) Potassium Level 3.9 MMOL/L (3.5-5.1) Chloride Level 103 MMOL/L (98-107) Carbon Dioxide Level 26 MMOL/L (21-32) Anion Gap 13 mmol/L (5-15) Blood Urea Nitrogen 70 mg/dL (7-18) H Creatinine 8.9 MG/DL (0.55-1.30) H Estimat Glomerular Filtration Rate 6.0 mL/min (>60) Glucose Level 160 MG/DL (74-106) H Calcium Level 9.6 MG/DL (8.5-10.1) Phosphorus Level 2.1 MG/DL (2.5-4.9) L Magnesium Level 2.9 MG/DL (1.8-2.4) H Total Bilirubin 0.4 MG/DL (0.2-1.0) Aspartate Amino Transf (AST/SGOT) 21 U/L (15-37) Alanine Aminotransferase (ALT/SGPT) 12 U/L (12-78) Alkaline Phosphatase 117 U/L (46-116) H C-Reactive Protein, Quantitative 6.4 mg/dL (0.00-0.90) H Total Protein 7.9 G/DL (6.4-8.2) Albumin 2.6 G/DL (3.4-5.0) L Globulin 5.3 g/dL Albumin/Globulin Ratio 0.5 (1.0-2.7) L Current Medications Medications (Trade) Dose Ordered Sig/Anthony Route PRN Reason Start Time Stop Time Status Last Admin Dose Admin Acetaminophen (Tylenol) 650 mg Q4H PRN NG For Pain 07/11/19 08:00 08/10/19 07:59 07/28/19 08:09 Albuterol Sulfate (Proventil MDI) 2 puff Q4HRT INH 06/06/19 23:00 08/30/19 18:59 07/28/19 07:11 Chlorhexidine Gluconate (Michelle-Hex 2%) 1 applic DAILY@2000 TOPIC 06/07/19 20:00 09/05/19 19:59 07/27/19 19:25 Dextrose (Dextrose 50%) 25 ml Q30M PRN IV Hypoglycemia 06/20/19 19:30 09/18/19 19:29 Dextrose (Dextrose 50%) 50 ml Q30M PRN IV Hypoglycemia 06/20/19 19:30 09/18/19 19:29 Dopamine HCl/ Dextrose 250 ml @ 0 mls/hr Q24H PRN IV For hypotension 06/13/19 08:15 09/11/19 08:14 07/17/19 08:46 Enoxaparin Sodium (Lovenox) 30 mg DAILY SUBQ 06/07/19 09:00 08/27/19 08:59 07/28/19 08:08 Epoetin Aftab (Epoetin Aftab(ESRD on dialysis)) 10,000 unit FRI-FRI-FRI SUBQ 06/07/19 21:00 08/31/19 20:59 07/26/19 20:58 Fentanyl Citrate 250 ml @ 0 mls/hr Q24H IV 07/19/19 14:06 10/17/19 14:05 07/26/19 21:35 Haloperidol Lactate 5 mg/ Dextrose 56 ml @ 224 mls/hr Q6H PRN IVPB Agitation 07/11/19 15:00 08/25/19 14:59 07/15/19 02:36 Hydralazine HCl (Apresoline) 10 mg Q4H PRN IV Blood pressure over 160 systol 06/07/19 10:15 09/05/19 10:14 Insulin Aspart (NovoLOG) EVERY 6 HOURS SUBQ 06/21/19 00:00 09/19/19 00:00 07/28/19 06:23 Midodrine (Pro-Amatine) 10 mg Q8HR ORAL 07/17/19 14:00 10/15/19 10:29 07/28/19 06:13 Norepinephrine Bitartrate 8 mg/ Sodium Chloride 250 ml @ 0 mls/hr Q24H IV 07/23/19 16:15 08/22/19 16:14 07/24/19 17:41 Pantoprazole (Protonix) 40 mg DAILY IVP 07/27/19 09:00 08/26/19 08:59 07/28/19 08:08 Sevelamer Carbonate (Renvela) 800 mg Q6HR NG 07/28/19 12:00 10/26/19 11:59 Vancomycin HCl ([facility]anco pharmacy to dose) 1 ea DAILY PRN MISC Per rx protocol 07/20/19 10:45 08/19/19 10:44 Ted Leyva MD Jul 28, 2019 10:21
[2019-07-28] MEDS ORDERED: Renvela 800mg Pkt NG SCH (12:00)
--- NOTE | 2019-07-28 13:43 | Surgery Progress Note ---
Surgery Progress Note Subjective Procedure Performed Right femoral temporary hemodialysis catheter removal Additional Comments ill appearing labs noted micro reviewed Objective Last 24 Hour Vital Signs Date Time Temp Pulse Resp B/P (MAP) Pulse Ox O2 Delivery O2 Flow Rate FiO2 07/28/19 12:00 100 07/28/19 12:00 100 26 120/100 (107) 99 07/28/19 12:00 30 07/28/19 12:00 Mechanical Ventilator 07/28/19 11:30 86 26 127/72 (90) 100 07/28/19 11:00 91 26 100 Mechanical Ventilator 30 91 25 30 07/28/19 11:00 89 26 142/85 (104) 100 07/28/19 10:30 91 26 139/74 (95) 97 07/28/19 10:00 89 23 135/76 (95) 97 07/28/19 09:45 100 07/28/19 09:30 89 16 147/73 (97) 98 07/28/19 09:00 89 20 142/74 (96) 98 07/28/19 08:30 90 17 140/73 (95) 99 07/28/19 08:00 98.7 89 26 121/59 (79) 99 07/28/19 08:00 88 07/28/19 08:00 Mechanical Ventilator 07/28/19 08:00 30 07/28/19 07:30 92 19 129/72 (91) 100 07/28/19 07:11 96 26 100 Mechanical Ventilator 30 96 26 30 07/28/19 07:00 96 23 126/69 (88) 100 07/28/19 06:30 104 28 07/28/19 06:00 104 24 129/74 (92) 100 07/28/19 05:00 103 1 120/69 (86) 100 07/28/19 04:00 30 07/28/19 04:00 107 23 119/64 (82) 100 07/28/19 04:00 23 119/64 Mechanical Ventilator 30 07/28/19 04:00 107 07/28/19 04:00 Mechanical Ventilator 07/28/19 03:30 106 27 100 Mechanical Ventilator 30 109 27 30 07/28/19 03:00 86 15 140/63 (88) 100 07/28/19 03:00 25 140/63 Mechanical Ventilator 30 07/28/19 02:00 82 23 130/61 (84) 100 07/28/19 02:00 23 130/61 Mechanical Ventilator 30 07/28/19 01:30 79 18 127/65 (85) 100 07/28/19 01:00 23 121/71 Mechanical Ventilator 30 07/28/19 01:00 76 23 121/71 (88) 100 07/28/19 00:30 84 22 107/61 (76) 100 07/28/19 00:00 79 07/28/19 00:00 30 07/28/19 00:00 79 17 119/61 (80) 100 07/28/19 00:00 Mechanical Ventilator 07/28/19 00:00 23 108/50 Mechanical Ventilator 30 07/27/19 23:41 84 28 100 Mechanical Ventilator 30 85 26 30 07/27/19 23:30 88 12 134/63 (86) 100 07/27/19 23:00 27 120/59 Mechanical Ventilator 30 07/27/19 23:00 87 8 120/59 (79) 100 07/27/19 22:00 27 112/57 Mechanical Ventilator 30 07/27/19 22:00 79 27 112/57 (75) 100 07/27/19 21:00 71 27 99/52 (68) 100 07/27/19 21:00 27 99/52 Mechanical Ventilator 30 07/27/19 20:00 81 07/27/19 20:00 27 106/68 Mechanical Ventilator 30 07/27/19 20:00 98.9 78 27 106/68 (81) 100 07/27/19 20:00 Mechanical Ventilator 07/27/19 20:00 30 07/27/19 19:50 79 26 100 Mechanical Ventilator 30 80 27 30 07/27/19 19:30 75 27 100/51 (67) 100 07/27/19 19:00 80 25 92/50 (64) 100 07/27/19 19:00 25 92/50 Mechanical Ventilator 30 07/27/19 18:00 80 0 90/54 (66) 100 07/27/19 18:00 25 90/54 Mechanical Ventilator 30 07/27/19 17:00 84 18 131/69 (89) 100 07/27/19 17:00 22 131/69 Mechanical Ventilator 30 07/27/19 16:30 80 25 127/64 (85) 100 07/27/19 16:15 131/69 07/27/19 16:00 Mechanical Ventilator 07/27/19 16:00 30 07/27/19 16:00 25 128/66 Mechanical Ventilator 30 07/27/19 16:00 81 21 128/66 (86) 100 07/27/19 16:00 98.4 81 21 128/66 (86) 100 07/27/19 16:00 85 07/27/19 15:30 84 24 128/67 (87) 100 07/27/19 15:29 81 26 100 Mechanical Ventilator 30 80 26 30 07/27/19 15:00 18 132/65 Mechanical Ventilator 30 07/27/19 15:00 84 25 132/65 (87) 100 07/27/19 14:30 87 23 113/66 (82) 100 07/27/19 14:00 86 27 116/66 (83) 100 07/27/19 14:00 24 111/58 Mechanical Ventilator 30 I&O Intake and Output 07/27/19 07/28/19 19:00 07:00 Intake Total 630 ml 530 ml Balance 630 ml 530 ml Free Water 150 ml 100 ml IV Total 60 ml 45 ml Tube Feeding 420 ml 385 ml # Bowel Movements 2 3 Dressing: other Wound: other Drains: other Cardiovascular: RSR Respiratory: decreased breath sounds Abdomen: soft, present bowel sounds Extremities: no cyanosis Laboratory Tests Test 07/28/19 03:05 White Blood Count 14.2 K/UL (4.8-10.8) H Red Blood Count 2.83 M/UL (4.70-6.10) L Hemoglobin 8.2 G/DL (14.2-18.0) L Hematocrit 28.2 % (42.0-52.0) L Mean Corpuscular Volume 100 FL (80-99) H Mean Corpuscular Hemoglobin 28.9 PG (27.0-31.0) Mean Corpuscular Hemoglobin Concent 29.0 G/DL (32.0-36.0) L Red Cell Distribution Width 17.8 % (11.6-14.8) H Platelet Count 363 K/UL (150-450) Mean Platelet Volume 7.4 FL (6.5-10.1) Neutrophils (%) (Auto) 73.6 % (45.0-75.0) Lymphocytes (%) (Auto) 12.6 % (20.0-45.0) L Monocytes (%) (Auto) 7.7 % (1.0-10.0) Eosinophils (%) (Auto) 4.6 % (0.0-3.0) H Basophils (%) (Auto) 1.5 % (0.0-2.0) Sodium Level 142 MMOL/L (136-145) Potassium Level 3.9 MMOL/L (3.5-5.1) Chloride Level 103 MMOL/L (98-107) Carbon Dioxide Level 26 MMOL/L (21-32) Anion Gap 13 mmol/L (5-15) Blood Urea Nitrogen 70 mg/dL (7-18) H Creatinine 8.9 MG/DL (0.55-1.30) H Estimat Glomerular Filtration Rate 6.0 mL/min (>60) Glucose Level 160 MG/DL (74-106) H Calcium Level 9.6 MG/DL (8.5-10.1) Phosphorus Level 2.1 MG/DL (2.5-4.9) L Magnesium Level 2.9 MG/DL (1.8-2.4) H Total Bilirubin 0.4 MG/DL (0.2-1.0) Aspartate Amino Transf (AST/SGOT) 21 U/L (15-37) Alanine Aminotransferase (ALT/SGPT) 12 U/L (12-78) Alkaline Phosphatase 117 U/L (46-116) H C-Reactive Protein, Quantitative 6.4 mg/dL (0.00-0.90) H Total Protein 7.9 G/DL (6.4-8.2) Albumin 2.6 G/DL (3.4-5.0) L Globulin 5.3 g/dL Albumin/Globulin Ratio 0.5 (1.0-2.7) L Plan Problems: (1) Suspected COVID-19 virus infection (2) HTN (hypertension) (3) CASSANDRA (acute kidney injury) Assessment & Plan: Needs urgent HD needs access patient okay and consented see note will follow with recs new line placed discussed with team and nephrology HD line functional when checked has TPA now please use appropriately Cathflo used again this flow during dialysis on 430 was low. Will monitor may need line change 5/ plan for HD as per renal may need to take fluid off with HD edema anasarca dressings saturated and changed will monitor cont with HD IJ left line placed for HD given extent of prior line in place. leukocytosis blood cx negative may need to change out line new line okay HD going well Continue HD as tolerated May need pressors for HD as needed (4) Anemia in chronic kidney disease (CKD) (5) Anemia (6) Renal failure (7) Suspected COVID-19 virus infection Assessment & Plan: Pt deconditioned and despite all skin preventions Pt noted to have developed several pressure injuries. . Stable dry eschar noted to clefts of R and L ears. No erythema noted . DTPI noted to L trochanter. Base of injury is maroon in colour with marginal erythema along borders. Partially opened DTPI Sacrum, R and L Buttocks. Base of wound is maroon with two small open wounds L sacrum and L buttocks. Pt has an APM/MOMO Mattress overlay and is being positioned with pillows as per tolerance and within protocols. worsening despite medical efforts will cont to provide therapy Tx.Plan: Apply Cavilon Skin Barrier to both ears Daily and prn. Apply Moisture Barrier Paste to Sacrum,R and L Buttocks. Cover with Optifoam drsgs. Change every 3 days and PRN. Apply Cavilon Skin Barrier to R and L trochanter. Cover each site with Optifoam drsgs.Change every 7 days and PRN. Apply Cavilon Skin Barrier to both heels. Cover each heel with Optifoam drsg. Change every 7 days and prn. Off-load heels with pillow. Reposition at least every 2hours or as tolerated. APM/MOMO Mattress overlay. (8) COVID-19 Assessment & Plan: COVID + c diff negative febrile leukocytosis renal insufficiency see above cont resp care Rx as per ID worsening on vent support now cxr noted on pressors prognosis guarded repeat covid ++ weaning vent and pressors off slowly showing improvement slowly recovering will need trach as unable to wean vent safely [facility] obtained s/p trach pending peg worsening on levo max (9) Sepsis Assessment & Plan: worsening leukocytosis febrile on pressors discussed with ID. lines evaluated and clean. he is septic on pressors and needs central access in difficult venous access patient blood cultures negative will monitor Yaniv Mast Jul 28, 2019 13:43
--- NOTE | 2019-07-28 13:45 | Nephrology Progress Note ---
Assessment/Plan Problem List: (1) CASSANDRA (acute kidney injury) (2) Anemia in chronic kidney disease (CKD) (3) HTN (hypertension) (4) COVID-19 Assessment Acute renal failure most likely superimposed on chronic kidney disease Suspected COVID-19 virus infection Possible Pneumonia, lymphopenia, elevated AST Cardiomegaly, possible CHF COPD Hypertension Anemia, most likely related to chronic kidney disease Plan July 27: Last COVID test negative. COVID test will be repeated tomorrow. Will order dialysis tomorrow. Remains full code. Medication list and labs reviewed. July 26: No labs done today. Dialysis done yesterday. Will check lab tomorrow. Dialysis as needed. July 25: Lab reviewed. Dialysis today. Discussed with RN. July 24: Lab reviewed. Do dialysis tomorrow. Discussed with RN. July 23: Lab reviewed. Dialyzed yesterday. Discussed with RN. Remains full code. Next dialysis July 25. Will check labs tomorrow. July 22: Labs reviewed. Due for dialysis today. Discussed with RN. Watch borderline low blood pressure. Discussed with dialysis nurse. July 21: Today's lab reviewed. Will arrange for dialysis tomorrow. Discussed with RN. Aim to keep the blood pressure above 100 systolic. Continue per consultants. July 20: Patient was dialyzed yesterday. Could not ultrafiltrate much due to low blood pressure. Discussed with SHANIQUE Dick today. No labs drawn today. Continue per consultants. July 19: Due for dialysis today. Discussed with SHANIQUE Dick. Continue per consultants. July 18: Dialyzed July 16. Will order dialysis tomorrow July 19. Continues to be on ventilator through trach. No labs done today. Continue per consultants. July 17: Dialyzed yesterday. Stable from renal standpoint of view. Remains full code. Status post trach on vent. Status post PEG. Continue per consultants. July 16: Dialysis today. Will resume Midodrin to prevent hypotension. Patient remains full code. July 15: Dialyzed yesterday, due for dialysis tomorrow. Labs and medication list reviewed. Continue per consultants. Patient remains full code. COVID-19 detected again. July 14: Patient currently on dialysis. This is continuation of dialysis from yesterday as yesterday's dialysis was cut short due to catheter malfunction. Labs and medication reviewed. Continue per consultants. July 13: Patient currently on hemodialysis. The dialysis catheter which is a intrajugular Kamlesh has poor flow. Will try TPA. Continue per consultants. July 12: Due for PEG today. Due for dialysis tomorrow. Continue per consultants. Discussed with RN. July 11: Plan for dialysis today. Discussed with RN. Data reviewed. July 10: Plan for dialysis tomorrow July 11. Waiting for consent to proceed with PEG. Continue per consultants. Medication reviewed. Labs reviewed. Discussed with RN. July 09: Dialyzed yesterday. Labs reviewed. Medication reviewed. Next hemodialysis July 11. July 08: Patient has tracheostomy now. Connected to ventilator. Due for dialysis today. Continue per consultants. Discussed with SHANIQUE Romero. July 07: Patient is due for tracheostomy today. Patient was last dialyzed July 05. Will order dialysis for tomorrow. July 06: Patient is intubated on ventilator however the plan is to extubate today. Patient was dialysis yesterday July 05. The dialysis time was cut short due to patient's respiratory distress. Only 1 L was removed during dialysis yesterday. Today's lab reviewed. Continue per consultants. Will arrange for dialysis as needed. July 05: Patient due for dialysis today. Remains intubated. Will schedule permacath placement in a.m. blood cultures on July 04 are negative. July 04: Patient was dialyzed yesterday. Due for dialysis tomorrow. Continues to be intubated. After tomorrow's dialysis will order a permacath. July 03: Dialysis is about to be started now Continues to be intubated Will plan to remove the femoral dialysis catheter and exchanged for a new temporary catheter per ID recommendation We will check surveillance blood culture tomorrow July 02: Patient was dialyzed yesterday and due for dialysis tomorrow Stable from renal standpoint W on dialysis Continue per consultants, weaning....... etc. July 01: Dialysis today Other status unchanged June 30: Due for dialysis tomorrow Remains intubated on ventilator Labs and medication reviewed Discussed with RN Stable from renal standpoint of view June 29: Dialyzed yesterday Due for dialysis tomorrow Stable from renal standpoint to view Keeps failing weaning process June 28: Patient due for dialysis today Stable from renal standpoint to view Continue per consultants June 27: Labs reviewed Due due for dialysis June 28 Discussed with SHANIQUE Dick Continue per consultants Remains intubated on ventilator June 26 Labs reviewed Dialyzed yesterday Started on weaning today Continue to monitor renal parameters June 16: On dialysis now Potassium supplement implemented Continue per consultants Next dialysis June 27June 15: Status unchanged Dialyzed yesterday will dialyze again tomorrow Potassium supplements given Discussed with RN June 14: Due dialysis today Status: Remains intubated on ventilator June 22: Status unchanged Dialyzed yesterday and duefordialysistomorrow Serum sodium stable today June 21 Remains intubated on ventilator Due dialysis today Emphasized high sodium bath for dialysis June 20: Remains intubated on ventilator Dialyzed June 19 next dialysis June 21 Serum sodium 128, will give 250 cc 3% saline Remains full code Discussed with RN Iron panel ordered June 19: Discussed with RN. Patient due for dialysis today. Continue pulmonary support. Remains full code. June 18: Patient dialyzed yesterday June 17 Serum sodium improved but still low Arrange for dialysis tomorrow June 19 Continue per consultants June 17: Due for dialysis today Today's lab reviewed, low serum sodium noted, Emphasized on high sodium bath to dialysis nurse Discussed with SHANIQUE Yuen June 7: Dialyzed yesterday Remains intubated Labs reviewed, serum sodium 131 Plan to dialyze tomorrow June 17 with high sodium bath Discussed with SHANIQUE Yuen June 6: Due for dialysis today Labs reviewed Discussed with RN Transfuse 1 unit of packed RBCs today for low hemoglobin of 7.1 June 5: Blood pressure well maintained Receive dialysis June 13 next hemodialysis June 15June 4: Discussed with RN in ICU Patient did not receive proper dialysis yesterday due to dialysis catheter malfunction Catheter to be adjusted today and dialyzed to be resumed today Continue per consultants Positive for COVID 28 June 2: Patient now intubated on mechanical ventilation Discussed with SHANIQUE Yuen, today June 12 Patient received dialysis yesterday June 10 next hemodialysis June 12 Blood pressure better maintained Today's labs reviewed Continue per consultants Previously patient received dialysis last evening June 05, next dialysis June 07 which was incomplete due to patient's hypotension Will start on midodrine for blood pressure support. Meanwhile continue other pressors as needed Previously Patient is doing poorly, septic, white blood cells are rising, Hypotension somewhat improved We will keep n.p.o. , NG tube for medications, and change medication to IV as needed Patient remains full code Monitor vancomycin level Previously: Patient pulled out his femoral catheter yesterday June 03 which was reinserted by Dr. Mast Patient scheduled for dialysis again June 04, which again was not done due to dialysis nurse citing catheter malfunction Meanwhile continue management per ID, pulmonary , and psych. Meanwhile white blood cell count is rising. Patient blood pressure borderline low. Will check ABG Previously May 31 : I believe patient need dialysis treatment He however needs to competency assessment if can make decisions or not I will communicate with Dr. Mulligan Previously: Per pulmonary and ID advice Adjust blood pressure medication Renal diet Anemia work-up 2D echocardiogram refused Kidney ultrasound refused Jules catheter Urine studies Per orders Subjective ROS Limited/Unobtainable: Yes Objective Objective Last 24 Hour Vital Signs Date Time Temp Pulse Resp B/P (MAP) Pulse Ox O2 Delivery O2 Flow Rate FiO2 07/28/19 12:00 100 07/28/19 12:00 100 26 120/100 (107) 99 07/28/19 12:00 30 07/28/19 12:00 Mechanical Ventilator 07/28/19 11:30 86 26 127/72 (90) 100 07/28/19 11:00 91 26 100 Mechanical Ventilator 30 91 25 30 07/28/19 11:00 89 26 142/85 (104) 100 07/28/19 10:30 91 26 139/74 (95) 97 07/28/19 10:00 89 23 135/76 (95) 97 07/28/19 09:45 100 07/28/19 09:30 89 16 147/73 (97) 98 07/28/19 09:00 89 20 142/74 (96) 98 07/28/19 08:30 90 17 140/73 (95) 99 07/28/19 08:00 98.7 89 26 121/59 (79) 99 07/28/19 08:00 88 07/28/19 08:00 Mechanical Ventilator 07/28/19 08:00 30 07/28/19 07:30 92 19 129/72 (91) 100 07/28/19 07:11 96 26 100 Mechanical Ventilator 30 96 26 30 07/28/19 07:00 96 23 126/69 (88) 100 07/28/19 06:30 104 28 07/28/19 06:00 104 24 129/74 (92) 100 07/28/19 05:00 103 1 120/69 (86) 100 07/28/19 04:00 30 07/28/19 04:00 107 23 119/64 (82) 100 07/28/19 04:00 23 119/64 Mechanical Ventilator 30 07/28/19 04:00 107 07/28/19 04:00 Mechanical Ventilator 07/28/19 03:30 106 27 100 Mechanical Ventilator 30 109 27 30 07/28/19 03:00 86 15 140/63 (88) 100 07/28/19 03:00 25 140/63 Mechanical Ventilator 30 07/28/19 02:00 82 23 130/61 (84) 100 07/28/19 02:00 23 130/61 Mechanical Ventilator 30 07/28/19 01:30 79 18 127/65 (85) 100 07/28/19 01:00 23 121/71 Mechanical Ventilator 30 07/28/19 01:00 76 23 121/71 (88) 100 07/28/19 00:30 84 22 107/61 (76) 100 07/28/19 00:00 79 07/28/19 00:00 30 07/28/19 00:00 79 17 119/61 (80) 100 07/28/19 00:00 Mechanical Ventilator 07/28/19 00:00 23 108/50 Mechanical Ventilator 30 07/27/19 23:41 84 28 100 Mechanical Ventilator 30 85 26 30 07/27/19 23:30 88 12 134/63 (86) 100 07/27/19 23:00 27 120/59 Mechanical Ventilator 30 07/27/19 23:00 87 8 120/59 (79) 100 07/27/19 22:00 27 112/57 Mechanical Ventilator 30 07/27/19 22:00 79 27 112/57 (75) 100 07/27/19 21:00 71 27 99/52 (68) 100 07/27/19 21:00 27 99/52 Mechanical Ventilator 30 07/27/19 20:00 81 07/27/19 20:00 27 106/68 Mechanical Ventilator 30 07/27/19 20:00 98.9 78 27 106/68 (81) 100 07/27/19 20:00 Mechanical Ventilator 07/27/19 20:00 30 07/27/19 19:50 79 26 100 Mechanical Ventilator 30 80 27 30 07/27/19 19:30 75 27 100/51 (67) 100 07/27/19 19:00 80 25 92/50 (64) 100 07/27/19 19:00 25 92/50 Mechanical Ventilator 30 07/27/19 18:00 80 0 90/54 (66) 100 07/27/19 18:00 25 90/54 Mechanical Ventilator 30 07/27/19 17:00 84 18 131/69 (89) 100 07/27/19 17:00 22 131/69 Mechanical Ventilator 30 07/27/19 16:30 80 25 127/64 (85) 100 07/27/19 16:15 131/69 07/27/19 16:00 Mechanical Ventilator 07/27/19 16:00 30 07/27/19 16:00 25 128/66 Mechanical Ventilator 30 07/27/19 16:00 81 21 128/66 (86) 100 07/27/19 16:00 98.4 81 21 128/66 (86) 100 07/27/19 16:00 85 07/27/19 15:30 84 24 128/67 (87) 100 07/27/19 15:29 81 26 100 Mechanical Ventilator 30 80 26 30 07/27/19 15:00 18 132/65 Mechanical Ventilator 30 07/27/19 15:00 84 25 132/65 (87) 100 07/27/19 14:30 87 23 113/66 (82) 100 07/27/19 14:00 86 27 116/66 (83) 100 07/27/19 14:00 24 111/58 Mechanical Ventilator 30 Intake and Output 07/27/19 07/28/19 19:00 07:00 Intake Total 630 ml 530 ml Balance 630 ml 530 ml Free Water 150 ml 100 ml IV Total 60 ml 45 ml Tube Feeding 420 ml 385 ml # Bowel Movements 2 3 Laboratory Tests 07/28/19 03:05: White Blood Count 14.2H, Red Blood Count 2.83L, Hemoglobin 8.2L, Hematocrit 28.2L, Mean Corpuscular Volume 100H, Mean Corpuscular Hemoglobin 28.9, Mean Corpuscular Hemoglobin Concent 29.0L, Red Cell Distribution Width 17.8H, Platelet Count 363, Mean Platelet Volume 7.4, Neutrophils (%) (Auto) 73.6, Lymphocytes (%) (Auto) 12.6L, Monocytes (%) (Auto) 7.7, Eosinophils (%) (Auto) 4.6H, Basophils (%) (Auto) 1.5, Sodium Level 142, Potassium Level 3.9, Chloride Level 103, Carbon Dioxide Level 26, Anion Gap 13, Blood Urea Nitrogen 70H, Creatinine 8.9H, Estimat Glomerular Filtration Rate 6.0, Glucose Level 160H, Calcium Level 9.6, Phosphorus Level 2.1L, Magnesium Level 2.9H, Total Bilirubin 0.4, Aspartate Amino Transf (AST/SGOT) 21, Alanine Aminotransferase (ALT/SGPT) 12, Alkaline Phosphatase 117H, C-Reactive Protein, Quantitative 6.4H, Total Protein 7.9, Albumin 2.6L, Globulin 5.3, Albumin/Globulin Ratio 0.5L Height (Feet): 6 Height (Inches): 1.00 Weight (Pounds): 165 General Appearance: no apparent distress EENT: other - Trach and vent Cardiovascular: tachycardia Respiratory/Chest: decreased breath sounds Abdomen: soft, other - PEG in place Objective No change Mic Cole MD Jul 28, 2019 13:45
--- NOTE | 2019-07-28 13:57 | Hematology/Onc Progress Note ---
Assessment/Plan Assessment/Plan Assessment and Recs: # Anemia of chronic disease, likely related ot underlying kidney disease has COIVD19++++++ --> hgb trend 9-->8-->7.3-->7.9-->6.8->9.5-->10->8.3-->7.7-->7.1-->8.9->8.8->7.7 -->8.1 ->7.9-->7.7 -->8.2-->8.1 -->7.9-->8.5 -->9->9.2-->9.5-->10.7 -->9.8--> 10.2-->11.8 -->11.9-->8.8 ->9.4->9-->8.3 --> transfuse as needed, hgb goal >7 --> no evidence of hemolysis --> peripheral smear has been reviewed --> epogen started 3 x a week ==>> transfuse 06/08, 06/15 # Leukocytosis likely related to suspected COVID-19 virus infection --> completed plaquenil --> trend smear as needed --> wbc trend: 4-->11-->14.5-->21-->26-->21->24--.28-->23-->19-->16.2-->21--> 11.2 -->12.5-->12.3-->12.4-->18.5-->18.5-->17->13-->18.2-->22.2-->25-->17.4-->17 -->14.2 --> pulm is aware --> on abx cefepime/vanc->zosyn/vanc-->dom/vanc-->dom-->levaquin/cefepime--> vanc --> pressors as needed --> 06/27 covid 19++ --> pressors as needed in icu # Thrombocytopenia/Lymphopenia --> likely related to covid19 --> plt 129k-->186k-->251-->285-->384 -->430-->539-->515-->447-->451-->404-->544 -->244 # Respiratory failure with covid19+ --> s/p vent/trach --> weaning # Possible Pneumonia --> abx completed --> 07/13 cxr: Improved right lung infiltrates. # Cardiomegaly # Transaminitis with Elevated AST # COPD # Chronic Kidney Disease --> per renal hd --> s/p right femoral cath 07/02 # Hypertension # Dvt ppx lovenox # peg Appreciate consultation and ernesto Rn Subjective Allergies: Coded Allergies: No Known Allergies (Unverified , 05/28/19) Subjective 06/01 nv, extremely agitated, not allowing labs draws, no night sweats, cbc ordered 06/02 confused, restraints, on abx and plaquenil, hgb 7.9, nrb 15 L 06/03 is with nonrebreather, but not compliant, remains confused 06/05 no bleeding, labs noted, no major bleeding, otherwise comfortable 06/06 labs reviewed, no bleeding, meds noted, no night sweats, on levo and nonrebreather 06/07 labs noted, no bleeding, meds reviewed, no bleeding, wbc higher 06/08 to get 2 units prbc, no night sweats, meds reviewed 06/09 is on cefepime and vanc, labs noted, ernesto Rn, no bleeding 06/10 no major changes, labs reviewed, wbc 28k, on abx, cefepime 06/12 remains in icu, labs noted, no night sweats or bleeding 06/13 sluggish pupils, remains agitated, per psych, no bleding, on vent, wbc sitll high 06/14 still confused, remains on vent, with ng, running nepro, on pressors 06/15 icu, febrile, non verbal, hgb 7.1, blood pending, completed plaq 06/16 remains in the icu, nonverbal, plan for hd tomorrow, ernesto rn 06/17 in icu, on pressor, nonverbal, on abx, no bleeding 06/19 no bleeding, nonverbal in icu, hgb is 7.7 06/20 on zosyn, tube feeds, vent, labs noted, in icu, nv 06/21 gettng hd as per renal, in icu, nv, no bleeding, tfs 06/22 icu, cxr with slight improvement, cooling blanket, weaning today 06/23 wewaning, in icu, on vent, abx, and pressors as needed, labs noted 06/24 failed weaning, off abx, completed plaquenil, hgb 8.1 06/26 icu, weaning for this am, afebrile, hgb 8 06/27 in icu, remains comotose, weaning started on peep, no night sweats 06/28 weaning today, off abx, restraints, no distress, h/h stable 06/29 covid 19+, failed weaning, no blood transfusion needed 06/30 icu, on vent, labs reviewed, no distress 07/01 in icu, may need trach, remains on hd per renal, labs noted 07/02 s/p right fem cath, failed wean, no new orders, h/h stable 07/03 is somewhat more responsive, on abx, no bleeding, weaning and HD today 07/04 hd as per renal, weaning off vent, no bleeding today 07/05 obtunded, no bleding overnight, with hd for tomorrow noted, vanc 07/08 no events, remains with trach/vent, ernesto Rn, no bleeding, cbc is noted 07/09 no overnight events, peg for friday pending consent 07/10 off pressors, vent, restraints, labs reviewed 07/11 no acute events is on pressors, intubated, agitated still 07/12 is resting comfortably, no bleeding, emds reviewed and noted 07/13 icu, no events, trach, cxr reviewed, 07/14 is onv ent, tachypneic and tachycardic, labs noted 07/15 remains confused, intubated, ernesto Rn, no bleeding 07/17 icu, cxr improving infiltrates, levo gtt, airborne/contact isolation 07/18 is on broad spectrum abx, is on levaquin and cefepime, wbc 16 agitated 07/19 icu, levo gtt, cxr unchanged, tachy, hd thursday 07/20 sedated, safety restraints, labs reviewed 07/21 hd was done yesterday, lower pressor requirements, wbc is worse, on abx 07/22 icu, meds and labs reviewed, vent, no distress 07/24 on vent, in icu, labs noted, remains agitated, and confused 07/25 remains obtunded, on vent, on pressor, hgb 9, wbc elev 07/26 icu, levo gtt, vent, iv abx, nonverbal 07/27 failed weaning, labs reviewed, repeat covid swab pending Objective Objective Current Medications Medications (Trade) Dose Ordered Sig/Anthony Route PRN Reason Start Time Stop Time Status Last Admin Dose Admin Acetaminophen (Tylenol) 650 mg Q4H PRN NG For Pain 07/11/19 08:00 08/10/19 07:59 07/28/19 08:09 Albuterol Sulfate (Proventil MDI) 2 puff Q4HRT INH 06/06/19 23:00 08/30/19 18:59 07/28/19 11:17 Chlorhexidine Gluconate (Michelle-Hex 2%) 1 applic DAILY@2000 TOPIC 06/07/19 20:00 09/05/19 19:59 07/27/19 19:25 Dextrose (Dextrose 50%) 25 ml Q30M PRN IV Hypoglycemia 06/20/19 19:30 09/18/19 19:29 Dextrose (Dextrose 50%) 50 ml Q30M PRN IV Hypoglycemia 06/20/19 19:30 09/18/19 19:29 Dopamine HCl/ Dextrose 250 ml @ 0 mls/hr Q24H PRN IV For hypotension 06/13/19 08:15 09/11/19 08:14 07/17/19 08:46 Enoxaparin Sodium (Lovenox) 30 mg DAILY SUBQ 06/07/19 09:00 08/27/19 08:59 07/28/19 08:08 Epoetin Aftab (Epoetin Aftab(ESRD on dialysis)) 10,000 unit FRI-FRI-FRI SUBQ 06/07/19 21:00 08/31/19 20:59 07/26/19 20:58 Fentanyl Citrate 250 ml @ 0 mls/hr Q24H IV 07/19/19 14:06 10/17/19 14:05 07/26/19 21:35 Haloperidol Lactate 5 mg/ Dextrose 56 ml @ 224 mls/hr Q6H PRN IVPB Agitation 07/11/19 15:00 08/25/19 14:59 6/4/20 02:36 Hydralazine HCl (Apresoline) 10 mg Q4H PRN IV Blood pressure over 160 systol 06/07/19 10:15 09/05/19 10:14 Insulin Aspart (NovoLOG) EVERY 6 HOURS SUBQ 06/21/19 00:00 09/19/19 00:00 07/28/19 13:00 Midodrine (Pro-Amatine) 10 mg Q8HR ORAL 07/17/19 14:00 10/15/19 10:29 07/28/19 06:13 Norepinephrine Bitartrate 8 mg/ Sodium Chloride 250 ml @ 0 mls/hr Q24H IV 07/23/19 16:15 08/22/19 16:14 07/24/19 17:41 Pantoprazole (Protonix) 40 mg DAILY IVP 07/27/19 09:00 08/26/19 08:59 07/28/19 08:08 [facility] 1 ea DAILY PRN MISC Per rx protocol 07/20/19 10:45 08/19/19 10:44 Last 24 Hour Vital Signs Date Time Temp Pulse Resp B/P (MAP) Pulse Ox O2 Delivery O2 Flow Rate FiO2 07/28/19 12:00 100 07/28/19 12:00 100 26 120/100 (107) 99 07/28/19 12:00 30 07/28/19 12:00 Mechanical Ventilator 07/28/19 11:30 86 26 127/72 (90) 100 07/28/19 11:00 91 26 100 Mechanical Ventilator 30 91 25 30 07/28/19 11:00 89 26 142/85 (104) 100 07/28/19 10:30 91 26 139/74 (95) 97 07/28/19 10:00 89 23 135/76 (95) 97 07/28/19 09:45 100 07/28/19 09:30 89 16 147/73 (97) 98 07/28/19 09:00 89 20 142/74 (96) 98 07/28/19 08:30 90 17 140/73 (95) 99 07/28/19 08:00 98.7 89 26 121/59 (79) 99 07/28/19 08:00 88 07/28/19 08:00 Mechanical Ventilator 07/28/19 08:00 30 07/28/19 07:30 92 19 129/72 (91) 100 07/28/19 07:11 96 26 100 Mechanical Ventilator 30 96 26 30 07/28/19 07:00 96 23 126/69 (88) 100 07/28/19 06:30 104 28 07/28/19 06:00 104 24 129/74 (92) 100 07/28/19 05:00 103 1 120/69 (86) 100 07/28/19 04:00 30 07/28/19 04:00 107 23 119/64 (82) 100 07/28/19 04:00 23 119/64 Mechanical Ventilator 30 07/28/19 04:00 107 07/28/19 04:00 Mechanical Ventilator 07/28/19 03:30 106 27 100 Mechanical Ventilator 30 109 27 30 07/28/19 03:00 86 15 140/63 (88) 100 07/28/19 03:00 25 140/63 Mechanical Ventilator 30 07/28/19 02:00 82 23 130/61 (84) 100 07/28/19 02:00 23 130/61 Mechanical Ventilator 30 07/28/19 01:30 79 18 127/65 (85) 100 07/28/19 01:00 23 121/71 Mechanical Ventilator 30 07/28/19 01:00 76 23 121/71 (88) 100 07/28/19 00:30 84 22 107/61 (76) 100 07/28/19 00:00 79 07/28/19 00:00 30 07/28/19 00:00 79 17 119/61 (80) 100 07/28/19 00:00 Mechanical Ventilator 07/28/19 00:00 23 108/50 Mechanical Ventilator 30 07/27/19 23:41 84 28 100 Mechanical Ventilator 30 85 26 30 07/27/19 23:30 88 12 134/63 (86) 100 07/27/19 23:00 27 120/59 Mechanical Ventilator 30 07/27/19 23:00 87 8 120/59 (79) 100 07/27/19 22:00 27 112/57 Mechanical Ventilator 30 07/27/19 22:00 79 27 112/57 (75) 100 07/27/19 21:00 71 27 99/52 (68) 100 07/27/19 21:00 27 99/52 Mechanical Ventilator 30 07/27/19 20:00 81 07/27/19 20:00 27 106/68 Mechanical Ventilator 30 07/27/19 20:00 98.9 78 27 106/68 (81) 100 07/27/19 20:00 Mechanical Ventilator 07/27/19 20:00 30 07/27/19 19:50 79 26 100 Mechanical Ventilator 30 80 27 30 07/27/19 19:30 75 27 100/51 (67) 100 07/27/19 19:00 80 25 92/50 (64) 100 07/27/19 19:00 25 92/50 Mechanical Ventilator 30 07/27/19 18:00 80 0 90/54 (66) 100 07/27/19 18:00 25 90/54 Mechanical Ventilator 30 07/27/19 17:00 84 18 131/69 (89) 100 07/27/19 17:00 22 131/69 Mechanical Ventilator 30 07/27/19 16:30 80 25 127/64 (85) 100 07/27/19 16:15 131/69 07/27/19 16:00 Mechanical Ventilator 07/27/19 16:00 30 07/27/19 16:00 25 128/66 Mechanical Ventilator 30 07/27/19 16:00 81 21 128/66 (86) 100 07/27/19 16:00 98.4 81 21 128/66 (86) 100 07/27/19 16:00 85 07/27/19 15:30 84 24 128/67 (87) 100 07/27/19 15:29 81 26 100 Mechanical Ventilator 30 80 26 30 07/27/19 15:00 18 132/65 Mechanical Ventilator 30 07/27/19 15:00 84 25 132/65 (87) 100 07/27/19 14:30 87 23 113/66 (82) 100 07/27/19 14:00 86 27 116/66 (83) 100 07/27/19 14:00 24 111/58 Mechanical Ventilator 30 07/27/19 13:30 85 26 111/67 (82) 100 07/27/19 13:00 26 90/51 Mechanical Ventilator 30 07/27/19 13:00 75 26 115/56 (75) 100 07/27/19 12:30 76 28 90/51 (64) 100 07/27/19 12:00 30 07/27/19 12:00 Mechanical Ventilator 07/27/19 12:00 86 07/27/19 12:00 26 97/62 Mechanical Ventilator 30 07/27/19 12:00 82 28 105/55 (72) 100 07/27/19 12:00 98.6 82 28 105/55 (72) 100 07/27/19 11:30 81 26 97/62 (74) 100 07/27/19 11:00 85 26 100/53 (69) 100 07/27/19 11:00 26 100/53 Mechanical Ventilator 30 07/27/19 10:43 93 26 100 Mechanical Ventilator 30 94 26 30 07/27/19 10:30 94 26 115/57 (76) 100 07/27/19 10:00 86 18 130/64 (86) 100 07/27/19 10:00 26 130/64 Mechanical Ventilator 30 07/27/19 09:47 100 07/27/19 09:30 86 24 142/70 (94) 100 07/27/19 09:00 91 11 135/68 (90) 100 07/27/19 09:00 20 135/68 Mechanical Ventilator 30 07/27/19 08:30 92 21 127/57 (80) 100 07/27/19 08:00 99.2 99 20 142/79 (100) 99 07/27/19 08:00 85 07/27/19 08:00 30 07/27/19 08:00 26 142/79 Mechanical Ventilator 30 07/27/19 08:00 Mechanical Ventilator 07/27/19 07:30 95 23 138/65 (89) 99 07/27/19 07:01 80 27 30 07/27/19 07:00 90 27 145/72 (96) 99 07/27/19 07:00 29 145/72 Mechanical Ventilator 30 07/27/19 06:30 86 18 79/44 (56) 99 07/27/19 06:30 89 28 07/27/19 06:00 86 0 79/44 (56) 98 07/27/19 05:30 94 19 104/57 (73) 89 07/27/19 05:00 93 24 98/68 (78) 99 07/27/19 04:00 26 114/59 Mechanical Ventilator 100 07/27/19 04:00 89 26 114/59 (77) 92 07/27/19 04:00 89 07/27/19 04:00 Mechanical Ventilator 07/27/19 04:00 30 07/27/19 03:30 86 26 115/54 (74) 07/27/19 03:00 28 122/64 Mechanical Ventilator 100 07/27/19 03:00 87 28 122/64 (83) 07/27/19 03:00 89 27 100 Mechanical Ventilator 30 88 29 30 07/27/19 02:00 30 114/60 Mechanical Ventilator 30 07/27/19 02:00 85 28 114/60 (78) 07/27/19 01:00 83 25 107/55 (72) 07/27/19 01:00 25 107/55 Mechanical Ventilator 30 07/27/19 00:30 83 38 102/54 (70) 07/27/19 00:00 30 07/27/19 00:00 84 07/27/19 00:00 25 110/64 Mechanical Ventilator 30 07/27/19 00:00 Mechanical Ventilator 07/27/19 00:00 99.2 84 51 110/64 (79) 07/26/19 23:30 85 21 110/54 (72) 99 07/26/19 23:04 86 30 100 Mechanical Ventilator 30 85 30 30 07/26/19 23:00 86 27 101/63 (76) 90 07/26/19 23:00 25 101/63 Mechanical Ventilator 30 07/26/19 22:00 93 26 90/54 (66) 100 07/26/19 22:00 26 90/54 Mechanical Ventilator 30 07/26/19 21:35 26 157/66 30 07/26/19 21:30 100 27 157/66 (96) 100 07/26/19 21:00 29 108/59 Mechanical Ventilator 30 07/26/19 21:00 88 29 108/59 (75) 100 07/26/19 20:30 89 30 106/54 (71) 100 07/26/19 20:00 Mechanical Ventilator 07/26/19 20:00 33 112/61 Mechanical Ventilator 30 07/26/19 20:00 99.4 90 33 112/61 (78) 100 07/26/19 20:00 90 07/26/19 20:00 30 07/26/19 19:30 89 18 121/63 (82) 100 07/26/19 19:27 85 26 100 Mechanical Ventilator 30 84 26 30 07/26/19 19:00 88 27 115/59 (77) 100 07/26/19 19:00 27 115/59 Mechanical Ventilator 30 07/26/19 18:30 90 7 93/58 (70) 100 07/26/19 18:00 26 120/67 Mechanical Ventilator 30 07/26/19 18:00 96 27 120/67 (84) 100 07/26/19 17:30 96 29 115/61 (79) 100 07/26/19 17:00 98 2 125/61 (82) 99 07/26/19 17:00 125/61 07/26/19 17:00 16 125/61 Mechanical Ventilator 30 07/26/19 16:30 92 29 120/66 (84) 100 07/26/19 16:00 98 07/26/19 16:00 30 07/26/19 16:00 123/62 07/26/19 16:00 28 123/62 Mechanical Ventilator 28 07/26/19 16:00 Mechanical Ventilator 07/26/19 16:00 99.2 93 41 118/75 (89) 100 07/26/19 15:30 107 12 102/60 (74) 100 07/26/19 15:09 105 28 30 07/26/19 15:00 108/78 07/26/19 15:00 24 108/78 Mechanical Ventilator 30 07/26/19 15:00 96 24 118/74 (89) 100 07/26/19 14:30 101 26 119/66 (83) 100 07/26/19 14:00 97 18 103/70 (81) 100 07/26/19 14:00 103/70 07/26/19 14:00 22 103/70 Mechanical Ventilator 30 Intake and Output 07/27/19 07/28/19 19:00 07:00 Intake Total 630 ml 530 ml Balance 630 ml 530 ml Free Water 150 ml 100 ml IV Total 60 ml 45 ml Tube Feeding 420 ml 385 ml # Bowel Movements 2 3 Labs Test 07/26/19 05:23 07/27/19 03:15 07/28/19 03:05 White Blood Count 17.1 K/UL (4.8-10.8) 14.2 K/UL (4.8-10.8) Red Blood Count 3.14 M/UL (4.70-6.10) 2.83 M/UL (4.70-6.10) Hemoglobin 9.0 G/DL (14.2-18.0) 8.2 G/DL (14.2-18.0) Hematocrit 30.9 % (42.0-52.0) 28.2 % (42.0-52.0) Mean Corpuscular Volume 98 FL (80-99) 100 FL (80-99) Mean Corpuscular Hemoglobin 28.7 PG (27.0-31.0) 28.9 PG (27.0-31.0) Mean Corpuscular Hemoglobin Concent 29.1 G/DL (32.0-36.0) 29.0 G/DL (32.0-36.0) Red Cell Distribution Width 17.9 % (11.6-14.8) 17.8 % (11.6-14.8) Platelet Count 330 K/UL (150-450) 363 K/UL (150-450) Mean Platelet Volume 7.6 FL (6.5-10.1) 7.4 FL (6.5-10.1) Neutrophils (%) (Auto) 82.5 % (45.0-75.0) 73.6 % (45.0-75.0) Lymphocytes (%) (Auto) 7.8 % (20.0-45.0) 12.6 % (20.0-45.0) Monocytes (%) (Auto) 6.0 % (1.0-10.0) 7.7 % (1.0-10.0) Eosinophils (%) (Auto) 2.8 % (0.0-3.0) 4.6 % (0.0-3.0) Basophils (%) (Auto) 0.8 % (0.0-2.0) 1.5 % (0.0-2.0) Sodium Level 138 MMOL/L (136-145) 142 MMOL/L (136-145) Potassium Level 3.6 MMOL/L (3.5-5.1) 3.9 MMOL/L (3.5-5.1) Chloride Level 99 MMOL/L (98-107) 103 MMOL/L (98-107) Carbon Dioxide Level 23 MMOL/L (21-32) 26 MMOL/L (21-32) Anion Gap 16 mmol/L (5-15) 13 mmol/L (5-15) Blood Urea Nitrogen 81 mg/dL (7-18) 70 mg/dL (7-18) Creatinine 9.6 MG/DL (0.55-1.30) 8.9 MG/DL (0.55-1.30) Estimat Glomerular Filtration Rate 5.5 mL/min (>60) 6.0 mL/min (>60) Glucose Level 202 MG/DL (74-106) 160 MG/DL (74-106) Calcium Level 9.9 MG/DL (8.5-10.1) 9.6 MG/DL (8.5-10.1) Phosphorus Level 3.1 MG/DL (2.5-4.9) 2.1 MG/DL (2.5-4.9) Magnesium Level 3.0 MG/DL (1.8-2.4) 2.9 MG/DL (1.8-2.4) Total Bilirubin 0.3 MG/DL (0.2-1.0) 0.4 MG/DL (0.2-1.0) Direct Bilirubin 0.2 MG/DL (0.0-0.3) Aspartate Amino Transf (AST/SGOT) 19 U/L (15-37) 21 U/L (15-37) Alanine Aminotransferase (ALT/SGPT) 11 U/L (12-78) 12 U/L (12-78) Alkaline Phosphatase 144 U/L (46-116) 117 U/L (46-116) Total Protein 7.4 G/DL (6.4-8.2) 7.9 G/DL (6.4-8.2) Albumin 2.5 G/DL (3.4-5.0) 2.6 G/DL (3.4-5.0) Random Vancomycin Level 17.1 ug/mL C-Reactive Protein, Quantitative 6.4 mg/dL (0.00-0.90) Globulin 5.3 g/dL Albumin/Globulin Ratio 0.5 (1.0-2.7) Micro Microbiology Date/Time Source Procedure Growth Status 07/27/19 18:41 Nasopharynx Coronavirus COVID-19 PCR ([facility]) - Final Complete Height (Feet): 6 Height (Inches): 1.00 Weight (Pounds): 165 Objective General: nv, confused, sedated Heent: bilateral eye normal inspection, bilateral eye PERRL ++Ng Respiratory: normal breath sounds, no respiratory distress, intubated/vent +++ trach+++ Cardiovascular: regular rate, rhythm, no edema Gastrointestinal: normal inspection, soft, non-distended, peg+ Rectal: deferred Musculoskeletal: normal range of motion, non-tender, R fem cath++ Neurologic: alert, motor strength/tone normal, sensory intact, responsive, speech normal Skin: Decubitus/Ulcer - See RN skin exam. : jamaal+ Greg Cabral MD Jul 28, 2019 13:57
[2019-07-28] MEDS: fentaNYL 2500mcg/NS 250ml 250 ML IV SCH ×2 (14:06→21:16)
--- NOTE | 2019-07-28 14:13 | Cardiac Electrophysiology PN ---
Assessment/Plan Assessment/Plan 1. Elevated troponin. Low level and flat due to renal failure. On Aspirin. EF 60%. 2. Septic shock. On Midodrine 10 tid and Abx 3. ESRD, on HD per Dr. Cole. 4. Resp failure due to COVID-19 positive pneumonia. On the Vent with 30% Fio2. S/P Tracheostomy 07/08/19 5. Dysphagia, S/P PEG 07/13/19 6. COPD. 7. Anemia. JHONY RN Subjective Subjective In ICU, on Vent via trach with 30% Fio2 and PEEP 5. Off Levo. On Fentanyl 100 and Midodrine. Awaiting LTAC placement. Covid positive x 9. First Covid was negative yesterday Objective Last 24 Hour Vital Signs Date Time Temp Pulse Resp B/P (MAP) Pulse Ox O2 Delivery O2 Flow Rate FiO2 07/28/19 13:57 86 26 130/74 (92) 97 07/28/19 13:30 90 26 132/79 (96) 97 07/28/19 13:00 87 26 116/71 (86) 99 07/28/19 12:30 91 26 132/79 (96) 99 07/28/19 12:00 100 07/28/19 12:00 100 26 120/100 (107) 99 07/28/19 12:00 30 07/28/19 12:00 Mechanical Ventilator 07/28/19 11:30 86 26 127/72 (90) 100 07/28/19 11:00 91 26 100 Mechanical Ventilator 30 91 25 30 07/28/19 11:00 89 26 142/85 (104) 100 07/28/19 10:30 91 26 139/74 (95) 97 07/28/19 10:00 89 23 135/76 (95) 97 07/28/19 09:45 100 07/28/19 09:30 89 16 147/73 (97) 98 07/28/19 09:00 89 20 142/74 (96) 98 07/28/19 08:30 90 17 140/73 (95) 99 07/28/19 08:00 98.7 89 26 121/59 (79) 99 07/28/19 08:00 88 07/28/19 08:00 Mechanical Ventilator 07/28/19 08:00 30 07/28/19 07:30 92 19 129/72 (91) 100 07/28/19 07:11 96 26 100 Mechanical Ventilator 30 96 26 30 07/28/19 07:00 96 23 126/69 (88) 100 07/28/19 06:30 104 28 07/28/19 06:00 104 24 129/74 (92) 100 07/28/19 05:00 103 1 120/69 (86) 100 07/28/19 04:00 30 07/28/19 04:00 107 23 119/64 (82) 100 07/28/19 04:00 23 119/64 Mechanical Ventilator 30 07/28/19 04:00 107 07/28/19 04:00 Mechanical Ventilator 07/28/19 03:30 106 27 100 Mechanical Ventilator 30 109 27 30 07/28/19 03:00 86 15 140/63 (88) 100 07/28/19 03:00 25 140/63 Mechanical Ventilator 30 07/28/19 02:00 82 23 130/61 (84) 100 07/28/19 02:00 23 130/61 Mechanical Ventilator 30 07/28/19 01:30 79 18 127/65 (85) 100 07/28/19 01:00 23 121/71 Mechanical Ventilator 30 07/28/19 01:00 76 23 121/71 (88) 100 07/28/19 00:30 84 22 107/61 (76) 100 07/28/19 00:00 79 07/28/19 00:00 30 07/28/19 00:00 79 17 119/61 (80) 100 07/28/19 00:00 Mechanical Ventilator 07/28/19 00:00 23 108/50 Mechanical Ventilator 30 07/27/19 23:41 84 28 100 Mechanical Ventilator 30 85 26 30 07/27/19 23:30 88 12 134/63 (86) 100 07/27/19 23:00 27 120/59 Mechanical Ventilator 30 07/27/19 23:00 87 8 120/59 (79) 100 07/27/19 22:00 27 112/57 Mechanical Ventilator 30 07/27/19 22:00 79 27 112/57 (75) 100 07/27/19 21:00 71 27 99/52 (68) 100 07/27/19 21:00 27 99/52 Mechanical Ventilator 30 07/27/19 20:00 81 07/27/19 20:00 27 106/68 Mechanical Ventilator 30 07/27/19 20:00 98.9 78 27 106/68 (81) 100 07/27/19 20:00 Mechanical Ventilator 07/27/19 20:00 30 07/27/19 19:50 79 26 100 Mechanical Ventilator 30 80 27 30 07/27/19 19:30 75 27 100/51 (67) 100 07/27/19 19:00 80 25 92/50 (64) 100 07/27/19 19:00 25 92/50 Mechanical Ventilator 30 07/27/19 18:00 80 0 90/54 (66) 100 07/27/19 18:00 25 90/54 Mechanical Ventilator 30 07/27/19 17:00 84 18 131/69 (89) 100 07/27/19 17:00 22 131/69 Mechanical Ventilator 30 07/27/19 16:30 80 25 127/64 (85) 100 07/27/19 16:15 131/69 07/27/19 16:00 Mechanical Ventilator 07/27/19 16:00 30 07/27/19 16:00 25 128/66 Mechanical Ventilator 30 07/27/19 16:00 81 21 128/66 (86) 100 07/27/19 16:00 98.4 81 21 128/66 (86) 100 07/27/19 16:00 85 07/27/19 15:30 84 24 128/67 (87) 100 07/27/19 15:29 81 26 100 Mechanical Ventilator 30 80 26 30 07/27/19 15:00 18 132/65 Mechanical Ventilator 30 07/27/19 15:00 84 25 132/65 (87) 100 07/27/19 14:30 87 23 113/66 (82) 100 Intake and Output 07/27/19 07/28/19 19:00 07:00 Intake Total 630 ml 530 ml Balance 630 ml 530 ml Free Water 150 ml 100 ml IV Total 60 ml 45 ml Tube Feeding 420 ml 385 ml # Bowel Movements 2 3 Laboratory Tests Test 07/28/19 03:05 White Blood Count 14.2 K/UL (4.8-10.8) H Red Blood Count 2.83 M/UL (4.70-6.10) L Hemoglobin 8.2 G/DL (14.2-18.0) L Hematocrit 28.2 % (42.0-52.0) L Mean Corpuscular Volume 100 FL (80-99) H Mean Corpuscular Hemoglobin 28.9 PG (27.0-31.0) Mean Corpuscular Hemoglobin Concent 29.0 G/DL (32.0-36.0) L Red Cell Distribution Width 17.8 % (11.6-14.8) H Platelet Count 363 K/UL (150-450) Mean Platelet Volume 7.4 FL (6.5-10.1) Neutrophils (%) (Auto) 73.6 % (45.0-75.0) Lymphocytes (%) (Auto) 12.6 % (20.0-45.0) L Monocytes (%) (Auto) 7.7 % (1.0-10.0) Eosinophils (%) (Auto) 4.6 % (0.0-3.0) H Basophils (%) (Auto) 1.5 % (0.0-2.0) Sodium Level 142 MMOL/L (136-145) Potassium Level 3.9 MMOL/L (3.5-5.1) Chloride Level 103 MMOL/L (98-107) Carbon Dioxide Level 26 MMOL/L (21-32) Anion Gap 13 mmol/L (5-15) Blood Urea Nitrogen 70 mg/dL (7-18) H Creatinine 8.9 MG/DL (0.55-1.30) H Estimat Glomerular Filtration Rate 6.0 mL/min (>60) Glucose Level 160 MG/DL (74-106) H Calcium Level 9.6 MG/DL (8.5-10.1) Phosphorus Level 2.1 MG/DL (2.5-4.9) L Magnesium Level 2.9 MG/DL (1.8-2.4) H Total Bilirubin 0.4 MG/DL (0.2-1.0) Aspartate Amino Transf (AST/SGOT) 21 U/L (15-37) Alanine Aminotransferase (ALT/SGPT) 12 U/L (12-78) Alkaline Phosphatase 117 U/L (46-116) H C-Reactive Protein, Quantitative 6.4 mg/dL (0.00-0.90) H Total Protein 7.9 G/DL (6.4-8.2) Albumin 2.6 G/DL (3.4-5.0) L Globulin 5.3 g/dL Albumin/Globulin Ratio 0.5 (1.0-2.7) L Microbiology Date/Time Source Procedure Growth Status 07/27/19 18:41 Nasopharynx Coronavirus COVID-19 PCR ([facility]) - Final Complete Objective HEAD AND NECK: No JVD. Tracheostomy in place. Left IJ HD catheter now in place LUNGS: Decreased breath sounds. CARDIOVASCULAR: Regular S1 and S2. Tachycardic. ABDOMEN: Soft. PEG in place EXTREMITIES: No pitting edema. Left FV Gio Engle MD Jul 28, 2019 14:13
[2019-07-28] MEDS: Dyna-Hex 2% Top Sol 2oz TOPIC SCH (19:31)
[2019-07-28] MEDS: Epoetin Alfa-EPBX(ESRD on dialysis)10,000 unit/ml vial SUBQ SCH (21:17)
--- NOTE | 2019-07-28 21:45 | General Progress Note ---
Assessment/Plan Problem List: (1) HTN (hypertension) ICD Codes: I10 - Essential (primary) hypertension SNOMED: 79788076 (2) CASSANDRA (acute kidney injury) ICD Codes: N17.9 - Acute kidney failure, unspecified SNOMED: 9847789, 90857852 (3) Anemia in chronic kidney disease (CKD) ICD Codes: N18.9 - Chronic kidney disease, unspecified; D63.1 - Anemia in chronic kidney disease SNOMED: 104015040 (4) Renal failure ICD Codes: N19 - Unspecified kidney failure SNOMED: 30344931 (5) Respiratory failure requiring intubation ICD Codes: J96.90 - Respiratory failure, unspecified, unspecified whether with hypoxia or hypercapnia; A41.89 - Other specified sepsis SNOMED: 680471829, 851714640 (6) Pneumonia due to COVID-19 virus ICD Codes: U07.1 - COVID-19; J12.89 - Other viral pneumonia SNOMED: 903888094, 600450334 (7) Sepsis due to severe acute respiratory syndrome coronavirus 2 (SARS-CoV-2) ICD Codes: U07.1 - COVID-19; A41.89 - Other specified sepsis SNOMED: 224257487, 603188396 Status: progressing, unchanged, deteriorating Status Narrative prn pressor anemia esrd on hd trach and peg malnutrtion weak glenn eval poor prognosis Assessment/Plan: favor comfort care check h/h and lytes asked for bioethics consulte since no family septic shock azotemia/renal failure s/p covid pna Subjective ROS Limited/Unobtainable: Yes Allergies: Coded Allergies: No Known Allergies (Unverified , 05/28/19) Objective Last 24 Hour Vital Signs Date Time Temp Pulse Resp B/P (MAP) Pulse Ox O2 Delivery O2 Flow Rate FiO2 07/28/19 21:16 23 123/68 30 07/28/19 21:00 94 25 123/68 (86) 07/28/19 20:00 89 07/28/19 20:00 99.3 89 23 113/69 (84) 07/28/19 20:00 23 113/69 Mechanical Ventilator 30 07/28/19 20:00 Mechanical Ventilator 07/28/19 20:00 30 07/28/19 19:08 97 26 100 Mechanical Ventilator 30 99 26 30 07/28/19 19:00 26 116/61 Mechanical Ventilator 30 07/28/19 19:00 94 26 116/61 (79) 100 07/28/19 18:00 25 138/67 Mechanical Ventilator 30 07/28/19 17:57 105 26 125/79 (94) 98 07/28/19 17:30 106 25 164/86 (112) 97 07/28/19 17:00 91 22 153/75 (101) 97 07/28/19 17:00 22 153/75 Mechanical Ventilator 30 07/28/19 16:30 87 22 142/72 (95) 97 07/28/19 16:00 Mechanical Ventilator 07/28/19 16:00 30 07/28/19 16:00 23 132/75 Mechanical Ventilator 30 07/28/19 16:00 86 07/28/19 15:20 88 27 100 Mechanical Ventilator 30 89 28 30 07/28/19 15:00 25 140/80 Mechanical Ventilator 30 07/28/19 14:00 25 140/80 Mechanical Ventilator 30 07/28/19 13:57 86 26 130/74 (92) 97 07/28/19 13:30 90 26 132/79 (96) 97 07/28/19 13:00 87 26 116/71 (86) 99 07/28/19 13:00 23 116/71 Mechanical Ventilator 30 07/28/19 12:30 91 26 132/79 (96) 99 07/28/19 12:00 100 07/28/19 12:00 100 26 120/100 (107) 99 07/28/19 12:00 30 07/28/19 12:00 Mechanical Ventilator 07/28/19 12:00 19 120/100 Mechanical Ventilator 30 07/28/19 11:30 86 26 127/72 (90) 100 07/28/19 11:00 22 142/85 Mechanical Ventilator 30 07/28/19 11:00 91 26 100 Mechanical Ventilator 30 91 25 30 07/28/19 11:00 89 26 142/85 (104) 100 07/28/19 10:30 91 26 139/74 (95) 97 07/28/19 10:00 17 135/76 Mechanical Ventilator 30 07/28/19 10:00 89 23 135/76 (95) 97 07/28/19 09:45 100 07/28/19 09:30 89 16 147/73 (97) 98 6/17/20 09:00 19 147/73 Mechanical Ventilator 30 07/28/19 09:00 89 20 142/74 (96) 98 07/28/19 08:30 90 17 140/73 (95) 99 07/28/19 08:00 98.7 89 26 121/59 (79) 99 07/28/19 08:00 21 140/73 Mechanical Ventilator 30 07/28/19 08:00 88 07/28/19 08:00 Mechanical Ventilator 07/28/19 08:00 30 07/28/19 07:30 92 19 129/72 (91) 100 07/28/19 07:11 96 26 100 Mechanical Ventilator 30 96 26 30 07/28/19 07:00 96 23 126/69 (88) 100 07/28/19 07:00 24 129/72 Mechanical Ventilator 30 07/28/19 06:30 104 28 07/28/19 06:00 104 24 129/74 (92) 100 07/28/19 05:00 103 1 120/69 (86) 100 07/28/19 04:00 30 07/28/19 04:00 107 23 119/64 (82) 100 07/28/19 04:00 23 119/64 Mechanical Ventilator 30 07/28/19 04:00 107 07/28/19 04:00 Mechanical Ventilator 07/28/19 03:30 106 27 100 Mechanical Ventilator 30 109 27 30 07/28/19 03:00 86 15 140/63 (88) 100 07/28/19 03:00 25 140/63 Mechanical Ventilator 30 07/28/19 02:00 82 23 130/61 (84) 100 07/28/19 02:00 23 130/61 Mechanical Ventilator 30 07/28/19 01:30 79 18 127/65 (85) 100 07/28/19 01:00 23 121/71 Mechanical Ventilator 30 07/28/19 01:00 76 23 121/71 (88) 100 07/28/19 00:30 84 22 107/61 (76) 100 07/28/19 00:00 79 07/28/19 00:00 30 07/28/19 00:00 79 17 119/61 (80) 100 07/28/19 00:00 Mechanical Ventilator 07/28/19 00:00 23 108/50 Mechanical Ventilator 30 07/27/19 23:41 84 28 100 Mechanical Ventilator 30 85 26 30 07/27/19 23:30 88 12 134/63 (86) 100 07/27/19 23:00 27 120/59 Mechanical Ventilator 30 07/27/19 23:00 87 8 120/59 (79) 100 07/27/19 22:00 27 112/57 Mechanical Ventilator 30 07/27/19 22:00 79 27 112/57 (75) 100 Intake and Output 07/27/19 07/28/19 19:00 07:00 Intake Total 630 ml 570 ml Balance 630 ml 570 ml Free Water 150 ml 100 ml IV Total 60 ml 50 ml Tube Feeding 420 ml 420 ml # Bowel Movements 2 1 Laboratory Tests 07/28/19 03:05: White Blood Count 14.2H, Red Blood Count 2.83L, Hemoglobin 8.2L, Hematocrit 28.2L, Mean Corpuscular Volume 100H, Mean Corpuscular Hemoglobin 28.9, Mean Corpuscular Hemoglobin Concent 29.0L, Red Cell Distribution Width 17.8H, Platelet Count 363, Mean Platelet Volume 7.4, Neutrophils (%) (Auto) 73.6, Lymphocytes (%) (Auto) 12.6L, Monocytes (%) (Auto) 7.7, Eosinophils (%) (Auto) 4.6H, Basophils (%) (Auto) 1.5, Sodium Level 142, Potassium Level 3.9, Chloride Level 103, Carbon Dioxide Level 26, Anion Gap 13, Blood Urea Nitrogen 70H, Creatinine 8.9H, Estimat Glomerular Filtration Rate 6.0, Glucose Level 160H, Calcium Level 9.6, Phosphorus Level 2.1L, Magnesium Level 2.9H, Total Bilirubin 0.4, Aspartate Amino Transf (AST/SGOT) 21, Alanine Aminotransferase (ALT/SGPT) 12, Alkaline Phosphatase 117H, C-Reactive Protein, Quantitative 6.4H, Total Protein 7.9, Albumin 2.6L, Globulin 5.3, Albumin/Globulin Ratio 0.5L Height (Feet): 6 Height (Inches): 1.00 Weight (Pounds): 165 Karishma Mulligan MD Jul 28, 2019 21:45
[2019-07-29] VITALS (42 sets, daily range): BP systolic 85–153; BP diastolic 57–96
[2019-07-29] MEDS: Albuterol 90mcg Inhaler 8gm INH SCH ×6 (03:00→23:04)
[2019-07-29 04:35] LABS: BASOPHILS % (AUTO) 1.4 % (0.0-2.0); EOSINOPHILS % (AUTO) 3.8 % (0.0-3.0); HEMATOCRIT 29.3 % (42.0-52.0); HEMOGLOBIN 8.5 G/DL (14.2-18.0); LYMPHOCYTES % (AUTO) 13.8 % (20.0-45.0); MEAN CORPUSCULAR VOLUME 99 FL (80-99); MONOCYTES % (AUTO) 6.8 % (1.0-10.0); NEUTROPHILS % (AUTO) 74.2 % (45.0-75.0); PLATELET COUNT 410 K/UL (150-450); RED BLOOD COUNT 2.96 M/UL (4.70-6.10); RED CELL DISTRIBUTION WIDTH 18.1 % (11.6-14.8)
[2019-07-29 05:01] LABS: ALANINE AMINOTRANSFERASE < 6 U/L (12-78); ALBUMIN 2.6 G/DL (3.4-5.0); ALBUMIN/GLOBULIN RATIO 0.5 (1.0-2.7); ALKALINE PHOSPHATASE 125 U/L (46-116); ANION GAP 14 mmol/L (5-15); ASPARTATE AMINO TRANSFERASE 23 U/L (15-37); BILIRUBIN,TOTAL 0.3 MG/DL (0.2-1.0); BLOOD UREA NITROGEN 81 mg/dL (7-18); CALCIUM 9.6 MG/DL (8.5-10.1); CARBON DIOXIDE 25 MMOL/L (21-32); CHLORIDE 103 MMOL/L (98-107); CREATININE 10.1 MG/DL (0.55-1.30); PHOSPHORUS 2.3 MG/DL (2.5-4.9); POTASSIUM 4.3 MMOL/L (3.5-5.1); SODIUM 142 MMOL/L (136-145)
[2019-07-29] MEDS: Midodrine 10mg tab ORAL SCH (05:46)
[2019-07-29] MEDS: NovoLOG Insulin Flexpen SUBQ SCH ×5 (05:47→23:54)
--- NOTE | 2019-07-29 08:01 | Pulmonolgy Critical Care Note ---
Critical Care - Asmt/Plan Assessment/Plan: Pulmonary CCM Progress Note HPI: Patient is a 68 year old man, jail resident, admitted c/o shortness of breath, cough, noted to have Covid 19 Pneumonia, Respiratory Failure Remains on Ventilator, CXR infiltrates stable Septic Shock, remains on pressors - Mitodrine , Levophed PRN, not tolerating weaning, will need placement, repeat COVID19 test now negative Preserved EF FIO2 40%, P5, adequate O2 sats, remains on ACVC, s/p Tracheostomy previously, sp PEG ID following Seen earlier on 07/28/2019 Past Medical History: COPD, CKD, Hypertension, Anemia Allergies: No Known Allergies Improving Pulmonary Status on HD Physical Exam Vital Signs Noted Stable on ventilator Chronically ill appearing HEENT: moist mm, trach Chest: Occasional rhonchi, BS equal bilaterally Heart: HS1, HS2, RRR Abdomen: SNTND G tube Extremities: No edema, 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, 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 Impression: COVID-19 virus infection Pneumonia Respiratory failure on ventilator, wean as tolerated once off pressors CKD - on HD Hypotension on pressors previously Cardiomegaly Lymphopenia Elevated AST COPD Chronic Kidney Disease - HD H/o Hypertension Worsening anemia Plan: SP Tracheostomy / G tube Antibiotics per ID HD Pressors PRN ACVC - 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 Monitor cultures/viral studies PPX Hemodialysis per Renal Psychiatry following Laboratory Tests Noted: CXR: Hypoventilatory exam, interstitial changes, cardiomegaly, improving infiltrates Subjective ROS Limited/Unobtainable: No Constitutional: Denies: fever Respiratory: Reports: dry cough, shortness of breath Gastrointestinal/Abdominal: Reports: diarrhea, other - colace was stopped Psychiatric: Reports: other - refuses labs Allergies: Coded Allergies: No Known Allergies (Unverified , 05/28/19) All Systems: reviewed and negative except above Labs noted Critical Care - Objective Last 24 Hour Vital Signs Date Time Temp Pulse Resp B/P (MAP) Pulse Ox O2 Delivery O2 Flow Rate FiO2 07/29/19 07:22 79 26 100 Mechanical Ventilator 30 75 26 30 07/29/19 06:30 108 26 07/29/19 06:00 82 26 108/63 (78) 100 07/29/19 06:00 26 108/63 Mechanical Ventilator 30 07/29/19 05:00 90 23 125/72 (89) 100 07/29/19 05:00 23 125/72 Mechanical Ventilator 30 07/29/19 04:00 88 07/29/19 04:00 88 24 127/74 (91) 99 07/29/19 04:00 30 07/29/19 04:00 Mechanical Ventilator 07/29/19 04:00 24 127/74 Mechanical Ventilator 30 07/29/19 03:10 90 26 100 Mechanical Ventilator 30 92 26 30 07/29/19 03:00 23 133/73 Mechanical Ventilator 30 07/29/19 03:00 98.7 94 23 133/73 (93) 100 07/29/19 02:00 79 26 141/71 (94) 100 07/29/19 02:00 26 141/71 Mechanical Ventilator 30 07/29/19 01:00 23 138/69 Mechanical Ventilator 30 07/29/19 01:00 85 23 138/69 (92) 100 07/29/19 00:00 Mechanical Ventilator 07/29/19 00:00 26 138/75 Mechanical Ventilator 30 07/29/19 00:00 99.2 81 26 138/75 (96) 100 07/28/19 23:02 87 28 100 Mechanical Ventilator 30 90 28 30 07/28/19 23:00 85 26 118/63 (81) 100 07/28/19 23:00 24 118/63 Mechanical Ventilator 30 07/28/19 22:00 24 135/66 Mechanical Ventilator 30 07/28/19 22:00 97 24 135/66 (89) 100 07/28/19 21:16 23 123/68 Mechanical Ventilator 30 07/28/19 21:16 23 123/68 30 07/28/19 21:00 94 25 123/68 (86) 07/28/19 20:00 89 07/28/19 20:00 99.3 89 23 113/69 (84) 07/28/19 20:00 23 113/69 Mechanical Ventilator 30 07/28/19 20:00 Mechanical Ventilator 07/28/19 20:00 30 07/28/19 19:08 97 26 100 Mechanical Ventilator 30 99 26 30 07/28/19 19:00 26 116/61 Mechanical Ventilator 30 07/28/19 19:00 94 26 116/61 (79) 100 07/28/19 18:00 25 138/67 Mechanical Ventilator 30 07/28/19 17:57 105 26 125/79 (94) 98 6/17/20 17:30 106 25 164/86 (112) 97 07/28/19 17:00 91 22 153/75 (101) 97 07/28/19 17:00 22 153/75 Mechanical Ventilator 30 07/28/19 16:30 87 22 142/72 (95) 97 07/28/19 16:00 Mechanical Ventilator 07/28/19 16:00 30 07/28/19 16:00 23 132/75 Mechanical Ventilator 30 07/28/19 16:00 86 07/28/19 15:20 88 27 100 Mechanical Ventilator 30 89 28 30 07/28/19 15:00 25 140/80 Mechanical Ventilator 30 07/28/19 14:00 25 140/80 Mechanical Ventilator 30 07/28/19 13:57 86 26 130/74 (92) 97 07/28/19 13:30 90 26 132/79 (96) 97 07/28/19 13:00 87 26 116/71 (86) 99 07/28/19 13:00 23 116/71 Mechanical Ventilator 30 07/28/19 12:30 91 26 132/79 (96) 99 07/28/19 12:00 100 07/28/19 12:00 100 26 120/100 (107) 99 07/28/19 12:00 30 07/28/19 12:00 Mechanical Ventilator 07/28/19 12:00 19 120/100 Mechanical Ventilator 30 07/28/19 11:30 86 26 127/72 (90) 100 07/28/19 11:00 22 142/85 Mechanical Ventilator 30 07/28/19 11:00 91 26 100 Mechanical Ventilator 30 91 25 30 07/28/19 11:00 89 26 142/85 (104) 100 07/28/19 10:30 91 26 139/74 (95) 97 07/28/19 10:00 17 135/76 Mechanical Ventilator 30 07/28/19 10:00 89 23 135/76 (95) 97 07/28/19 09:45 100 07/28/19 09:30 89 16 147/73 (97) 98 07/28/19 09:00 19 147/73 Mechanical Ventilator 30 07/28/19 09:00 89 20 142/74 (96) 98 07/28/19 08:30 90 17 140/73 (95) 99 Micro: Microbiology Date/Time Source Procedure Growth Status 07/27/19 18:41 Nasopharynx Coronavirus COVID-19 PCR ([facility]) - Final Complete Accucheck: 126 Critical Care - Subjective ROS Limited/Unobtainable: No Condition: improving FI02: 30 Vent Support Breath Rate: 26 Vent Support Mode: AC Vent Tidal Volume: 500 Sputum Amount: Moderate PEEP: 5.0 PIP: 25 Tube Feeding Amount: 45 I&O: Intake and Output 07/28/19 07/29/19 19:00 07:00 Intake Total 620 ml 643.66 ml Output Total 2 ml Balance 618 ml 643.66 ml Free Water 30 ml 100 ml IV Total 60 ml 48.66 ml Tube Feeding 530 ml 495 ml Stool Total 2 ml # Bowel Movements 1 1 ET-Tube: 7.5 ET Position: 24 Arturo Mckeon MD Jul 29, 2019 08:01
--- NOTE | 2019-07-29 08:19 | Infectious Diseases Prog Note ---
Assessment/Plan Assessment/Plan IMPRESSION: 1. COVID19 pneumonia Positive: 05/27, 05/31 , 06/05, 06/09 ,06/17, 06/19, 06/23, 06/27, 07/03, 07/15 Negative: 07/26 2. MRSA carrier. 3. Chronic kidney disease , end-stage renal disease. 4. COPD. 5. Hypertension. 6. Anemia. 7. Hypothyroidism. 8. Hyperlipidemia. 9. Major depression. 10. Leukocytosis 11. Hypotension 12. Hepatitis C 13. Hyperuricemia 14. Diarrhea 15. septic shock 16. Leukocytosis improving 17. Pneumonia with Staph aureus ( MRSA) 18. Bacteremia with Staph coagulase negative RECOMMENDATIONS: Continue IV Vancomycin Will f/u COVID19 test for transfer to [place] Case was D/W RN Subjective Neurologic: Reports: confusion, other - on restraint Allergies: Coded Allergies: No Known Allergies (Unverified , 05/28/19) Objective Vital Signs Last 24 Hour Vital Signs Date Time Temp Pulse Resp B/P (MAP) Pulse Ox O2 Delivery O2 Flow Rate FiO2 07/29/19 07:22 79 26 100 Mechanical Ventilator 30 75 26 30 07/29/19 06:30 108 26 07/29/19 06:00 82 26 108/63 (78) 100 07/29/19 06:00 26 108/63 Mechanical Ventilator 30 07/29/19 05:00 90 23 125/72 (89) 100 07/29/19 05:00 23 125/72 Mechanical Ventilator 30 07/29/19 04:00 88 07/29/19 04:00 88 24 127/74 (91) 99 07/29/19 04:00 30 07/29/19 04:00 Mechanical Ventilator 07/29/19 04:00 24 127/74 Mechanical Ventilator 30 07/29/19 03:10 90 26 100 Mechanical Ventilator 30 92 26 30 07/29/19 03:00 23 133/73 Mechanical Ventilator 30 07/29/19 03:00 98.7 94 23 133/73 (93) 100 07/29/19 02:00 79 26 141/71 (94) 100 07/29/19 02:00 26 141/71 Mechanical Ventilator 30 07/29/19 01:00 23 138/69 Mechanical Ventilator 30 07/29/19 01:00 85 23 138/69 (92) 100 07/29/19 00:00 Mechanical Ventilator 07/29/19 00:00 26 138/75 Mechanical Ventilator 30 07/29/19 00:00 99.2 81 26 138/75 (96) 100 07/28/19 23:02 87 28 100 Mechanical Ventilator 30 90 28 30 07/28/19 23:00 85 26 118/63 (81) 100 07/28/19 23:00 24 118/63 Mechanical Ventilator 30 07/28/19 22:00 24 135/66 Mechanical Ventilator 30 07/28/19 22:00 97 24 135/66 (89) 100 07/28/19 21:16 23 123/68 Mechanical Ventilator 30 07/28/19 21:16 23 123/68 30 07/28/19 21:00 94 25 123/68 (86) 07/28/19 20:00 89 07/28/19 20:00 99.3 89 23 113/69 (84) 07/28/19 20:00 23 113/69 Mechanical Ventilator 30 07/28/19 20:00 Mechanical Ventilator 07/28/19 20:00 30 07/28/19 19:08 97 26 100 Mechanical Ventilator 30 99 26 30 07/28/19 19:00 26 116/61 Mechanical Ventilator 30 07/28/19 19:00 94 26 116/61 (79) 100 07/28/19 18:00 25 138/67 Mechanical Ventilator 30 07/28/19 17:57 105 26 125/79 (94) 98 07/28/19 17:30 106 25 164/86 (112) 97 07/28/19 17:00 91 22 153/75 (101) 97 07/28/19 17:00 22 153/75 Mechanical Ventilator 30 07/28/19 16:30 87 22 142/72 (95) 97 07/28/19 16:00 Mechanical Ventilator 07/28/19 16:00 30 07/28/19 16:00 23 132/75 Mechanical Ventilator 30 07/28/19 16:00 86 07/28/19 15:20 88 27 100 Mechanical Ventilator 30 89 28 30 07/28/19 15:00 25 140/80 Mechanical Ventilator 30 07/28/19 14:00 25 140/80 Mechanical Ventilator 30 07/28/19 13:57 86 26 130/74 (92) 97 07/28/19 13:30 90 26 132/79 (96) 97 07/28/19 13:00 87 26 116/71 (86) 99 07/28/19 13:00 23 116/71 Mechanical Ventilator 30 07/28/19 12:30 91 26 132/79 (96) 99 07/28/19 12:00 100 07/28/19 12:00 100 26 120/100 (107) 99 07/28/19 12:00 30 07/28/19 12:00 Mechanical Ventilator 07/28/19 12:00 19 120/100 Mechanical Ventilator 30 07/28/19 11:30 86 26 127/72 (90) 100 07/28/19 11:00 22 142/85 Mechanical Ventilator 30 07/28/19 11:00 91 26 100 Mechanical Ventilator 30 91 25 30 07/28/19 11:00 89 26 142/85 (104) 100 07/28/19 10:30 91 26 139/74 (95) 97 07/28/19 10:00 17 135/76 Mechanical Ventilator 30 07/28/19 10:00 89 23 135/76 (95) 97 07/28/19 09:45 100 07/28/19 09:30 89 16 147/73 (97) 98 07/28/19 09:00 19 147/73 Mechanical Ventilator 30 07/28/19 09:00 89 20 142/74 (96) 98 07/28/19 08:30 90 17 140/73 (95) 99 Height (Feet): 6 Height (Inches): 1.00 Weight (Pounds): 163 General Appearance: no acute distress HEENT: mucous membranes moist, status post trach Respiratory/Chest: other - on ventilator Cardiovascular: normal rate, other - HD & central line Abdomen: soft, non tender, other Extremities: no edema Neurologic/Psychiatric: disoriented Microbiology Date/Time Source Procedure Growth Status 07/27/19 18:41 Nasopharynx Coronavirus COVID-19 PCR ([facility]) - Final Complete Laboratory Tests Test 07/29/19 03:40 White Blood Count 14.0 K/UL (4.8-10.8) H Red Blood Count 2.96 M/UL (4.70-6.10) L Hemoglobin 8.5 G/DL (14.2-18.0) L Hematocrit 29.3 % (42.0-52.0) L Mean Corpuscular Volume 99 FL (80-99) Mean Corpuscular Hemoglobin 28.8 PG (27.0-31.0) Mean Corpuscular Hemoglobin Concent 29.2 G/DL (32.0-36.0) L Red Cell Distribution Width 18.1 % (11.6-14.8) H Platelet Count 410 K/UL (150-450) Mean Platelet Volume 6.6 FL (6.5-10.1) Neutrophils (%) (Auto) 74.2 % (45.0-75.0) Lymphocytes (%) (Auto) 13.8 % (20.0-45.0) L Monocytes (%) (Auto) 6.8 % (1.0-10.0) Eosinophils (%) (Auto) 3.8 % (0.0-3.0) H Basophils (%) (Auto) 1.4 % (0.0-2.0) Sodium Level 142 MMOL/L (136-145) Potassium Level 4.3 MMOL/L (3.5-5.1) Chloride Level 103 MMOL/L (98-107) Carbon Dioxide Level 25 MMOL/L (21-32) Anion Gap 14 mmol/L (5-15) Blood Urea Nitrogen 81 mg/dL (7-18) H Creatinine 10.1 MG/DL (0.55-1.30) H Estimat Glomerular Filtration Rate 5.2 mL/min (>60) Glucose Level 142 MG/DL (74-106) H Calcium Level 9.6 MG/DL (8.5-10.1) Phosphorus Level 2.3 MG/DL (2.5-4.9) L Magnesium Level 3.0 MG/DL (1.8-2.4) H Total Bilirubin 0.3 MG/DL (0.2-1.0) Aspartate Amino Transf (AST/SGOT) 23 U/L (15-37) Alanine Aminotransferase (ALT/SGPT) < 6 U/L (12-78) L Alkaline Phosphatase 125 U/L (46-116) H C-Reactive Protein, Quantitative 4.7 mg/dL (0.00-0.90) H Pro-B-Type Natriuretic Peptide 15545 pg/mL (0-125) H Total Protein 8.3 G/DL (6.4-8.2) H Albumin 2.6 G/DL (3.4-5.0) L Globulin 5.7 g/dL Albumin/Globulin Ratio 0.5 (1.0-2.7) L Current Medications Medications (Trade) Dose Ordered Sig/Anthony Route PRN Reason Start Time Stop Time Status Last Admin Dose Admin Acetaminophen (Tylenol) 650 mg Q4H PRN NG For Pain 07/11/19 08:00 08/10/19 07:59 07/28/19 08:09 Albuterol Sulfate (Proventil MDI) 2 puff Q4HRT INH 06/06/19 23:00 08/30/19 18:59 07/29/19 07:22 Chlorhexidine Gluconate (Michelle-Hex 2%) 1 applic DAILY@2000 TOPIC 06/07/19 20:00 09/05/19 19:59 07/28/19 19:31 Dextrose (Dextrose 50%) 25 ml Q30M PRN IV Hypoglycemia 06/20/19 19:30 09/18/19 19:29 Dextrose (Dextrose 50%) 50 ml Q30M PRN IV Hypoglycemia 06/20/19 19:30 09/18/19 19:29 Dopamine HCl/ Dextrose 250 ml @ 0 mls/hr Q24H PRN IV For hypotension 06/13/19 08:15 09/11/19 08:14 07/17/19 08:46 Enoxaparin Sodium (Lovenox) 30 mg DAILY SUBQ 06/07/19 09:00 08/27/19 08:59 07/28/19 08:08 Epoetin Aftab (Epoetin Aftab(ESRD on dialysis)) 10,000 unit FRI-FRI-FRI SUBQ 06/07/19 21:00 08/31/19 20:59 07/28/19 21:17 Fentanyl Citrate 250 ml @ 0 mls/hr Q24H IV 07/19/19 14:06 10/17/19 14:05 07/28/19 21:16 Haloperidol Lactate 5 mg/ Dextrose 56 ml @ 224 mls/hr Q6H PRN IVPB Agitation 07/11/19 15:00 08/25/19 14:59 07/15/19 02:36 Hydralazine HCl (Apresoline) 10 mg Q4H PRN IV Blood pressure over 160 systol 06/07/19 10:15 09/05/19 10:14 Insulin Aspart (NovoLOG) EVERY 6 HOURS SUBQ 06/21/19 00:00 09/19/19 00:00 07/28/19 18:14 Midodrine (Pro-Amatine) 10 mg Q8HR ORAL 07/17/19 14:00 10/15/19 10:29 07/29/19 05:46 Norepinephrine Bitartrate 8 mg/ Sodium Chloride 250 ml @ 0 mls/hr Q24H IV 07/23/19 16:15 08/22/19 16:14 07/24/19 17:41 Pantoprazole (Protonix) 40 mg DAILY IVP 07/27/19 09:00 08/26/19 08:59 07/28/19 08:08 [facility] 1 [facility]a DAILY PRN MISC Per rx protocol 07/20/19 10:45 08/19/19 10:44 Ted Leyva MD Jul 29, 2019 08:19
[2019-07-29] MEDS: Pantoprazole Inj IVP SCH (09:28)
[2019-07-29] MEDS: Enoxaparin 30mg Inj SUBQ SCH (09:29)
--- NOTE | 2019-07-29 10:30 | Cardiac Electrophysiology PN ---
Assessment/Plan Assessment/Plan 1. Elevated troponin. Low level and flat due to renal failure. On Aspirin. EF 60%. 2. S/P Septic shock. On Midodrine 10 tid and Abx 3. ESRD, on HD per Dr. Cole. 4. Resp failure due to COVID-19 positive pneumonia. On the Vent with 30% Fio2. S/P Tracheostomy 07/08/19 5. Dysphagia, S/P PEG 07/13/19 6. COPD. 7. Anemia. JHONY RN Subjective Subjective In ICU, on Vent via trach with 30% Fio2 and PEEP 5. Off Levo. On Fentanyl 100 and Midodrine. Awaiting LTAC placement. Covid positive x 9. First Covid was negative and second one pending Objective Last 24 Hour Vital Signs Date Time Temp Pulse Resp B/P (MAP) Pulse Ox O2 Delivery O2 Flow Rate FiO2 07/29/19 10:05 81 25 149/82 (104) 100 07/29/19 09:30 80 21 153/81 (105) 100 07/29/19 09:00 82 25 144/75 (98) 100 07/29/19 08:30 80 19 141/79 (99) 100 07/29/19 08:00 30 07/29/19 08:00 99.0 76 22 133/74 (93) 100 07/29/19 08:00 79 07/29/19 08:00 Mechanical Ventilator 07/29/19 07:30 81 16 139/78 (98) 100 07/29/19 07:22 79 26 100 Mechanical Ventilator 30 75 26 30 07/29/19 07:22 100 07/29/19 07:00 77 23 136/72 (93) 100 07/29/19 06:30 108 26 07/29/19 06:00 82 26 108/63 (78) 100 07/29/19 06:00 26 108/63 Mechanical Ventilator 30 07/29/19 05:00 90 23 125/72 (89) 100 07/29/19 05:00 23 125/72 Mechanical Ventilator 30 07/29/19 04:00 88 07/29/19 04:00 88 24 127/74 (91) 99 07/29/19 04:00 30 07/29/19 04:00 Mechanical Ventilator 07/29/19 04:00 24 127/74 Mechanical Ventilator 30 07/29/19 03:10 90 26 100 Mechanical Ventilator 30 92 26 30 07/29/19 03:00 23 133/73 Mechanical Ventilator 30 07/29/19 03:00 98.7 94 23 133/73 (93) 100 07/29/19 02:00 79 26 141/71 (94) 100 07/29/19 02:00 26 141/71 Mechanical Ventilator 30 07/29/19 01:00 23 138/69 Mechanical Ventilator 30 07/29/19 01:00 85 23 138/69 (92) 100 07/29/19 00:00 Mechanical Ventilator 07/29/19 00:00 26 138/75 Mechanical Ventilator 30 07/29/19 00:00 99.2 81 26 138/75 (96) 100 07/28/19 23:02 87 28 100 Mechanical Ventilator 30 90 28 30 07/28/19 23:00 85 26 118/63 (81) 100 07/28/19 23:00 24 118/63 Mechanical Ventilator 30 07/28/19 22:00 24 135/66 Mechanical Ventilator 30 07/28/19 22:00 97 24 135/66 (89) 100 07/28/19 21:16 23 123/68 Mechanical Ventilator 30 07/28/19 21:16 23 123/68 30 07/28/19 21:00 94 25 123/68 (86) 07/28/19 20:00 89 07/28/19 20:00 99.3 89 23 113/69 (84) 07/28/19 20:00 23 113/69 Mechanical Ventilator 30 07/28/19 20:00 Mechanical Ventilator 07/28/19 20:00 30 07/28/19 19:08 97 26 100 Mechanical Ventilator 30 99 26 30 07/28/19 19:00 26 116/61 Mechanical Ventilator 30 07/28/19 19:00 94 26 116/61 (79) 100 07/28/19 18:00 25 138/67 Mechanical Ventilator 30 07/28/19 17:57 105 26 125/79 (94) 98 07/28/19 17:30 106 25 164/86 (112) 97 07/28/19 17:00 91 22 153/75 (101) 97 20 17:00 22 153/75 Mechanical Ventilator 30 07/28/19 16:30 87 22 142/72 (95) 97 07/28/19 16:00 Mechanical Ventilator 07/28/19 16:00 30 07/28/19 16:00 23 132/75 Mechanical Ventilator 30 07/28/19 16:00 86 07/28/19 15:20 88 27 100 Mechanical Ventilator 30 89 28 30 07/28/19 15:00 25 140/80 Mechanical Ventilator 30 07/28/19 14:00 25 140/80 Mechanical Ventilator 30 07/28/19 13:57 86 26 130/74 (92) 97 07/28/19 13:30 90 26 132/79 (96) 97 07/28/19 13:00 87 26 116/71 (86) 99 07/28/19 13:00 23 116/71 Mechanical Ventilator 30 07/28/19 12:30 91 26 132/79 (96) 99 07/28/19 12:00 100 07/28/19 12:00 100 26 120/100 (107) 99 07/28/19 12:00 30 07/28/19 12:00 Mechanical Ventilator 07/28/19 12:00 19 120/100 Mechanical Ventilator 30 07/28/19 11:30 86 26 127/72 (90) 100 07/28/19 11:00 22 142/85 Mechanical Ventilator 30 07/28/19 11:00 91 26 100 Mechanical Ventilator 30 91 25 30 07/28/19 11:00 89 26 142/85 (104) 100 07/28/19 10:30 91 26 139/74 (95) 97 Intake and Output 07/28/19 07/29/19 19:00 07:00 Intake Total 620 ml 688.66 ml Output Total 2 ml 0 ml Balance 618 ml 688.66 ml Free Water 30 ml 100 ml IV Total 60 ml 48.66 ml Tube Feeding 530 ml 540 ml Output Urine Total 0 ml Stool Total 2 ml # Bowel Movements 1 1 Laboratory Tests Test 07/29/19 03:40 White Blood Count 14.0 K/UL (4.8-10.8) H Red Blood Count 2.96 M/UL (4.70-6.10) L Hemoglobin 8.5 G/DL (14.2-18.0) L Hematocrit 29.3 % (42.0-52.0) L Mean Corpuscular Volume 99 FL (80-99) Mean Corpuscular Hemoglobin 28.8 PG (27.0-31.0) Mean Corpuscular Hemoglobin Concent 29.2 G/DL (32.0-36.0) L Red Cell Distribution Width 18.1 % (11.6-14.8) H Platelet Count 410 K/UL (150-450) Mean Platelet Volume 6.6 FL (6.5-10.1) Neutrophils (%) (Auto) 74.2 % (45.0-75.0) Lymphocytes (%) (Auto) 13.8 % (20.0-45.0) L Monocytes (%) (Auto) 6.8 % (1.0-10.0) Eosinophils (%) (Auto) 3.8 % (0.0-3.0) H Basophils (%) (Auto) 1.4 % (0.0-2.0) Sodium Level 142 MMOL/L (136-145) Potassium Level 4.3 MMOL/L (3.5-5.1) Chloride Level 103 MMOL/L (98-107) Carbon Dioxide Level 25 MMOL/L (21-32) Anion Gap 14 mmol/L (5-15) Blood Urea Nitrogen 81 mg/dL (7-18) H Creatinine 10.1 MG/DL (0.55-1.30) H Estimat Glomerular Filtration Rate 5.2 mL/min (>60) Glucose Level 142 MG/DL (74-106) H Calcium Level 9.6 MG/DL (8.5-10.1) Phosphorus Level 2.3 MG/DL (2.5-4.9) L Magnesium Level 3.0 MG/DL (1.8-2.4) H Total Bilirubin 0.3 MG/DL (0.2-1.0) Aspartate Amino Transf (AST/SGOT) 23 U/L (15-37) Alanine Aminotransferase (ALT/SGPT) < 6 U/L (12-78) L Alkaline Phosphatase 125 U/L (46-116) H C-Reactive Protein, Quantitative 4.7 mg/dL (0.00-0.90) H Pro-B-Type Natriuretic Peptide 43370 pg/mL (0-125) H Total Protein 8.3 G/DL (6.4-8.2) H Albumin 2.6 G/DL (3.4-5.0) L Globulin 5.7 g/dL Albumin/Globulin Ratio 0.5 (1.0-2.7) L Microbiology Date/Time Source Procedure Growth Status 07/27/19 18:41 Nasopharynx Coronavirus COVID-19 PCR ([facility]) - Final Complete Objective HEAD AND NECK: No JVD. Tracheostomy in place. Left IJ HD catheter now in place LUNGS: Decreased breath sounds. CARDIOVASCULAR: Regular S1 and S2. Tachycardic. ABDOMEN: Soft. PEG in place EXTREMITIES: No pitting edema. Left FV Gio Engle MD Jul 29, 2019 10:30
--- NOTE | 2019-07-29 11:00 | General Progress Note ---
Assessment/Plan Status: progressing, unchanged, deteriorating Assessment/Plan: 1. Diabetes. 2. Hypertension. 3. Coronary artery disease. 4. COPD. 5. Psychiatric disorder with schizophrenia. 6. History of hepatitis C. 7. HLP. 8. Chronic kidney disease, now with acute renal failure. 9. Anemia. 10. Hypothyroidism. 11. Spinal stenosis. 12. Constipation. 13. GERD. 14. COVID positive HD per nephrology fu labs icu care s/p PEG GTF increae to 45 cc monitor for residuals Subjective ROS Limited/Unobtainable: No Allergies: Coded Allergies: No Known Allergies (Unverified , 05/28/19) Objective Last 24 Hour Vital Signs Date Time Temp Pulse Resp B/P (MAP) Pulse Ox O2 Delivery O2 Flow Rate FiO2 07/29/19 10:05 81 25 149/82 (104) 100 07/29/19 09:30 80 21 153/81 (105) 100 07/29/19 09:00 82 25 144/75 (98) 100 07/29/19 08:30 80 19 141/79 (99) 100 07/29/19 08:00 30 07/29/19 08:00 99.0 76 22 133/74 (93) 100 07/29/19 08:00 79 07/29/19 08:00 Mechanical Ventilator 07/29/19 07:30 81 16 139/78 (98) 100 07/29/19 07:22 79 26 100 Mechanical Ventilator 30 75 26 30 07/29/19 07:22 100 07/29/19 07:00 77 23 136/72 (93) 100 07/29/19 06:30 108 26 07/29/19 06:00 82 26 108/63 (78) 100 07/29/19 06:00 26 108/63 Mechanical Ventilator 30 07/29/19 05:00 90 23 125/72 (89) 100 07/29/19 05:00 23 125/72 Mechanical Ventilator 30 07/29/19 04:00 88 07/29/19 04:00 88 24 127/74 (91) 99 07/29/19 04:00 30 07/29/19 04:00 Mechanical Ventilator 07/29/19 04:00 24 127/74 Mechanical Ventilator 30 07/29/19 03:10 90 26 100 Mechanical Ventilator 30 92 26 30 07/29/19 03:00 23 133/73 Mechanical Ventilator 30 6/18/20 03:00 98.7 94 23 133/73 (93) 100 07/29/19 02:00 79 26 141/71 (94) 100 07/29/19 02:00 26 141/71 Mechanical Ventilator 30 07/29/19 01:00 23 138/69 Mechanical Ventilator 30 07/29/19 01:00 85 23 138/69 (92) 100 07/29/19 00:00 Mechanical Ventilator 07/29/19 00:00 26 138/75 Mechanical Ventilator 30 07/29/19 00:00 99.2 81 26 138/75 (96) 100 07/28/19 23:02 87 28 100 Mechanical Ventilator 30 90 28 30 07/28/19 23:00 85 26 118/63 (81) 100 07/28/19 23:00 24 118/63 Mechanical Ventilator 30 07/28/19 22:00 24 135/66 Mechanical Ventilator 30 07/28/19 22:00 97 24 135/66 (89) 100 07/28/19 21:16 23 123/68 Mechanical Ventilator 30 07/28/19 21:16 23 123/68 30 07/28/19 21:00 94 25 123/68 (86) 07/28/19 20:00 89 07/28/19 20:00 99.3 89 23 113/69 (84) 07/28/19 20:00 23 113/69 Mechanical Ventilator 30 07/28/19 20:00 Mechanical Ventilator 07/28/19 20:00 30 07/28/19 19:08 97 26 100 Mechanical Ventilator 30 99 26 30 07/28/19 19:00 26 116/61 Mechanical Ventilator 30 07/28/19 19:00 94 26 116/61 (79) 100 07/28/19 18:00 25 138/67 Mechanical Ventilator 30 07/28/19 17:57 105 26 125/79 (94) 98 07/28/19 17:30 106 25 164/86 (112) 97 07/28/19 17:00 91 22 153/75 (101) 97 07/28/19 17:00 22 153/75 Mechanical Ventilator 30 07/28/19 16:30 87 22 142/72 (95) 97 07/28/19 16:00 Mechanical Ventilator 07/28/19 16:00 30 07/28/19 16:00 23 132/75 Mechanical Ventilator 30 07/28/19 16:00 86 07/28/19 15:20 88 27 100 Mechanical Ventilator 30 89 28 30 07/28/19 15:00 25 140/80 Mechanical Ventilator 30 07/28/19 14:00 25 140/80 Mechanical Ventilator 30 07/28/19 13:57 86 26 130/74 (92) 97 07/28/19 13:30 90 26 132/79 (96) 97 07/28/19 13:00 87 26 116/71 (86) 99 07/28/19 13:00 23 116/71 Mechanical Ventilator 30 07/28/19 12:30 91 26 132/79 (96) 99 07/28/19 12:00 100 07/28/19 12:00 100 26 120/100 (107) 99 07/28/19 12:00 30 07/28/19 12:00 Mechanical Ventilator 07/28/19 12:00 19 120/100 Mechanical Ventilator 30 07/28/19 11:30 86 26 127/72 (90) 100 07/28/19 11:00 22 142/85 Mechanical Ventilator 30 07/28/19 11:00 91 26 100 Mechanical Ventilator 30 91 25 30 07/28/19 11:00 89 26 142/85 (104) 100 Intake and Output 07/28/19 07/29/19 19:00 07:00 Intake Total 620 ml 688.66 ml Output Total 2 ml 0 ml Balance 618 ml 688.66 ml Free Water 30 ml 100 ml IV Total 60 ml 48.66 ml Tube Feeding 530 ml 540 ml Output Urine Total 0 ml Stool Total 2 ml # Bowel Movements 1 1 Laboratory Tests 07/29/19 03:40: White Blood Count 14.0H, Red Blood Count 2.96L, Hemoglobin 8.5L, Hematocrit 29.3L, Mean Corpuscular Volume 99, Mean Corpuscular Hemoglobin 28.8, Mean Corpuscular Hemoglobin Concent 29.2L, Red Cell Distribution Width 18.1H, Platelet Count 410, Mean Platelet Volume 6.6, Neutrophils (%) (Auto) 74.2, Lymphocytes (%) (Auto) 13.8L, Monocytes (%) (Auto) 6.8, Eosinophils (%) (Auto) 3.8H, Basophils (%) (Auto) 1.4, Sodium Level 142, Potassium Level 4.3, Chloride Level 103, Carbon Dioxide Level 25, Anion Gap 14, Blood Urea Nitrogen 81H, Creatinine 10.1H, Estimat Glomerular Filtration Rate 5.2, Glucose Level 142H, Calcium Level 9.6, Phosphorus Level 2.3L, Magnesium Level 3.0H, Total Bilirubin 0.3, Aspartate Amino Transf (AST/SGOT) 23, Alanine Aminotransferase (ALT/SGPT) < 6L, Alkaline Phosphatase 125H, C-Reactive Protein, Quantitative 4.7H, Pro-B- Type Natriuretic Peptide 18326Z, Total Protein 8.3H, Albumin 2.6L, Globulin 5.7 , Albumin/Globulin Ratio 0.5L Height (Feet): 6 Height (Inches): 1.00 Weight (Pounds): 163 General Appearance: no apparent distress EENT: normal ENT inspection Neck: supple Cardiovascular: normal rate Respiratory/Chest: decreased breath sounds Abdomen: normal bowel sounds, non tender, soft Extremities: non-tender Marito Ramires MD Jul 29, 2019 11:00
--- NOTE | 2019-07-29 12:18 | Nephrology Progress Note ---
Assessment/Plan Problem List: (1) CASSANDRA (acute kidney injury) (2) Anemia in chronic kidney disease (CKD) (3) HTN (hypertension) (4) COVID-19 Assessment Acute renal failure most likely superimposed on chronic kidney disease Suspected COVID-19 virus infection Possible Pneumonia, lymphopenia, elevated AST Cardiomegaly, possible CHF COPD Hypertension Anemia, most likely related to chronic kidney disease Plan July 28: Due for dialysis today. Labs reviewed. Full code. Patient trached and vented. July 27: Last COVID test negative. COVID test will be repeated tomorrow. Will order dialysis tomorrow. Remains full code. Medication list and labs reviewed. July 26: No labs done today. Dialysis done yesterday. Will check lab tomorrow. Dialysis as needed. July 25: Lab reviewed. Dialysis today. Discussed with RN. July 24: Lab reviewed. Do dialysis tomorrow. Discussed with RN. July 23: Lab reviewed. Dialyzed yesterday. Discussed with RN. Remains full code. Next dialysis July 25. Will check labs tomorrow. July 22: Labs reviewed. Due for dialysis today. Discussed with RN. Watch borderline low blood pressure. Discussed with dialysis nurse. July 21: Today's lab reviewed. Will arrange for dialysis tomorrow. Discussed with RN. Aim to keep the blood pressure above 100 systolic. Continue per consultants. July 20: Patient was dialyzed yesterday. Could not ultrafiltrate much due to low blood pressure. Discussed with SHANIQUE Dick today. No labs drawn today. Continue per consultants. July 19: Due for dialysis today. Discussed with SHANIQUE Dick. Continue per consultants. July 18: Dialyzed July 16. Will order dialysis tomorrow July 19. Continues to be on ventilator through trach. No labs done today. Continue per consultants. July 17: Dialyzed yesterday. Stable from renal standpoint of view. Remains full code. Status post trach on vent. Status post PEG. Continue per consultants. July 16: Dialysis today. Will resume Midodrin to prevent hypotension. Patient remains full code. July 15: Dialyzed yesterday, due for dialysis tomorrow. Labs and medication list reviewed. Continue per consultants. Patient remains full code. COVID-19 detected again. July 14: Patient currently on dialysis. This is continuation of dialysis from yesterday as yesterday's dialysis was cut short due to catheter malfunction. Labs and medication reviewed. Continue per consultants. July 13: Patient currently on hemodialysis. The dialysis catheter which is a intrajugular Kamlesh has poor flow. Will try TPA. Continue per consultants. July 12: Due for PEG today. Due for dialysis tomorrow. Continue per consultants. Discussed with RN. July 11: Plan for dialysis today. Discussed with RN. Data reviewed. July 10: Plan for dialysis tomorrow July 11. Waiting for consent to proceed with PEG. Continue per consultants. Medication reviewed. Labs reviewed. Discussed with RN. July 09: Dialyzed yesterday. Labs reviewed. Medication reviewed. Next hemodialysis July 11. July 08: Patient has tracheostomy now. Connected to ventilator. Due for dialysis today. Continue per consultants. Discussed with SHANIQUE Romero. July 07: Patient is due for tracheostomy today. Patient was last dialyzed July 05. Will order dialysis for tomorrow. July 06: Patient is intubated on ventilator however the plan is to extubate today. Patient was dialysis yesterday July 05. The dialysis time was cut short due to patient's respiratory distress. Only 1 L was removed during dialysis yesterday. Today's lab reviewed. Continue per consultants. Will arrange for dialysis as needed. July 05: Patient due for dialysis today. Remains intubated. Will schedule permacath placement in a.m. blood cultures on July 04 are negative. July 04: Patient was dialyzed yesterday. Due for dialysis tomorrow. Continues to be intubated. After tomorrow's dialysis will order a permacath. July 03: Dialysis is about to be started now Continues to be intubated Will plan to remove the femoral dialysis catheter and exchanged for a new temporary catheter per ID recommendation We will check surveillance blood culture tomorrow July 02: Patient was dialyzed yesterday and due for dialysis tomorrow Stable from renal standpoint W on dialysis Continue per consultants, weaning....... etc. July 01: Dialysis today Other status unchanged June 30: Due for dialysis tomorrow Remains intubated on ventilator Labs and medication reviewed Discussed with RN Stable from renal standpoint of view June 29: Dialyzed yesterday Due for dialysis tomorrow Stable from renal standpoint to view Keeps failing weaning process June 28: Patient due for dialysis today Stable from renal standpoint to view Continue per consultants June 27: Labs reviewed Due due for dialysis June 28 Discussed with SHANIQUE Dick Continue per consultants Remains intubated on ventilator June 26 Labs reviewed Dialyzed yesterday Started on weaning today Continue to monitor renal parameters June 25: On dialysis now Potassium supplement implemented Continue per consultants Next dialysis June 27June 15: Status unchanged Dialyzed yesterday will dialyze again tomorrow Potassium supplements given Discussed with RN June 14: Due dialysis today Status: Remains intubated on ventilator June 13: Status unchanged Dialyzed yesterday and duefordialysistomorrow Serum sodium stable today June 21 Remains intubated on ventilator Due dialysis today Emphasized high sodium bath for dialysis June 20: Remains intubated on ventilator Dialyzed June 19 next dialysis June 21 Serum sodium 128, will give 250 cc 3% saline Remains full code Discussed with RN Iron panel ordered June 19: Discussed with RN. Patient due for dialysis today. Continue pulmonary support. Remains full code. June 18: Patient dialyzed yesterday June 17 Serum sodium improved but still low Arrange for dialysis tomorrow June 19 Continue per consultants June 8: Due for dialysis today Today's lab reviewed, low serum sodium noted, Emphasized on high sodium bath to dialysis nurse Discussed with SHANIQUE Yuen June 7: Dialyzed yesterday Remains intubated Labs reviewed, serum sodium 131 Plan to dialyze tomorrow June 17 with high sodium bath Discussed with HSANIQUE Yuen June 6: Due for dialysis today Labs reviewed Discussed with RN Transfuse 1 unit of packed RBCs today for low hemoglobin of 7.1 June 5: Blood pressure well maintained Receive dialysis June 13 next hemodialysis June 15June 4: Discussed with RN in ICU Patient did not receive proper dialysis yesterday due to dialysis catheter malfunction Catheter to be adjusted today and dialyzed to be resumed today Continue per consultants Positive for COVID 28 June 2: Patient now intubated on mechanical ventilation Discussed with SHANIQUE Yuen, today June 12 Patient received dialysis yesterday June 10 next hemodialysis June 12 Blood pressure better maintained Today's labs reviewed Continue per consultants Previously patient received dialysis last evening June 05, next dialysis June 07 which was incomplete due to patient's hypotension Will start on midodrine for blood pressure support. Meanwhile continue other pressors as needed Previously Patient is doing poorly, septic, white blood cells are rising, Hypotension somewhat improved We will keep n.p.o. , NG tube for medications, and change medication to IV as needed Patient remains full code Monitor vancomycin level Previously: Patient pulled out his femoral catheter yesterday June 03 which was reinserted by Dr. Mast Patient scheduled for dialysis again June 04, which again was not done due to dialysis nurse citing catheter malfunction Meanwhile continue management per ID, pulmonary , and psych. Meanwhile white blood cell count is rising. Patient blood pressure borderline low. Will check ABG Previously May 31 : I believe patient need dialysis treatment He however needs to competency assessment if can make decisions or not I will communicate with Dr. Mulligan Previously: Per pulmonary and ID advice Adjust blood pressure medication Renal diet Anemia work-up 2D echocardiogram refused Kidney ultrasound refused Jules catheter Urine studies Per orders Subjective ROS Limited/Unobtainable: Yes Objective Objective Last 24 Hour Vital Signs Date Time Temp Pulse Resp B/P (MAP) Pulse Ox O2 Delivery O2 Flow Rate FiO2 07/29/19 12:01 95 28 138/76 (96) 99 07/29/19 12:00 30 07/29/19 12:00 Mechanical Ventilator 07/29/19 12:00 94 07/29/19 11:30 88 25 124/70 (88) 99 07/29/19 11:23 95 27 30 07/29/19 11:00 82 23 153/77 (102) 100 07/29/19 10:05 81 25 149/82 (104) 100 07/29/19 09:30 80 21 153/81 (105) 100 07/29/19 09:00 82 25 144/75 (98) 100 07/29/19 08:30 80 19 141/79 (99) 100 07/29/19 08:00 30 07/29/19 08:00 99.0 76 22 133/74 (93) 100 07/29/19 08:00 79 07/29/19 08:00 Mechanical Ventilator 07/29/19 07:30 81 16 139/78 (98) 100 07/29/19 07:22 79 26 100 Mechanical Ventilator 30 75 26 30 07/29/19 07:22 100 07/29/19 07:00 77 23 136/72 (93) 100 07/29/19 06:30 108 26 07/29/19 06:00 82 26 108/63 (78) 100 07/29/19 06:00 26 108/63 Mechanical Ventilator 30 07/29/19 05:00 90 23 125/72 (89) 100 07/29/19 05:00 23 125/72 Mechanical Ventilator 30 07/29/19 04:00 88 07/29/19 04:00 88 24 127/74 (91) 99 07/29/19 04:00 30 07/29/19 04:00 Mechanical Ventilator 07/29/19 04:00 24 127/74 Mechanical Ventilator 30 07/29/19 03:10 90 26 100 Mechanical Ventilator 30 92 26 30 07/29/19 03:00 23 133/73 Mechanical Ventilator 30 07/29/19 03:00 98.7 94 23 133/73 (93) 100 07/29/19 02:00 79 26 141/71 (94) 100 07/29/19 02:00 26 141/71 Mechanical Ventilator 30 07/29/19 01:00 23 138/69 Mechanical Ventilator 30 07/29/19 01:00 85 23 138/69 (92) 100 07/29/19 00:00 Mechanical Ventilator 07/29/19 00:00 26 138/75 Mechanical Ventilator 30 07/29/19 00:00 99.2 81 26 138/75 (96) 100 07/28/19 23:02 87 28 100 Mechanical Ventilator 30 90 28 30 07/28/19 23:00 85 26 118/63 (81) 100 07/28/19 23:00 24 118/63 Mechanical Ventilator 30 07/28/19 22:00 24 135/66 Mechanical Ventilator 30 07/28/19 22:00 97 24 135/66 (89) 100 07/28/19 21:16 23 123/68 Mechanical Ventilator 30 07/28/19 21:16 23 123/68 30 07/28/19 21:00 94 25 123/68 (86) 07/28/19 20:00 89 07/28/19 20:00 99.3 89 23 113/69 (84) 07/28/19 20:00 23 113/69 Mechanical Ventilator 30 07/28/19 20:00 Mechanical Ventilator 07/28/19 20:00 30 07/28/19 19:08 97 26 100 Mechanical Ventilator 30 99 26 30 07/28/19 19:00 26 116/61 Mechanical Ventilator 30 07/28/19 19:00 94 26 116/61 (79) 100 07/28/19 18:00 25 138/67 Mechanical Ventilator 30 07/28/19 17:57 105 26 125/79 (94) 98 07/28/19 17:30 106 25 164/86 (112) 97 07/28/19 17:00 91 22 153/75 (101) 97 07/28/19 17:00 22 153/75 Mechanical Ventilator 30 07/28/19 16:30 87 22 142/72 (95) 97 07/28/19 16:00 Mechanical Ventilator 07/28/19 16:00 30 07/28/19 16:00 23 132/75 Mechanical Ventilator 30 07/28/19 16:00 86 07/28/19 15:20 88 27 100 Mechanical Ventilator 30 89 28 30 07/28/19 15:00 25 140/80 Mechanical Ventilator 30 07/28/19 14:00 25 140/80 Mechanical Ventilator 30 07/28/19 13:57 86 26 130/74 (92) 97 07/28/19 13:30 90 26 132/79 (96) 97 07/28/19 13:00 87 26 116/71 (86) 99 07/28/19 13:00 23 116/71 Mechanical Ventilator 30 07/28/19 12:30 91 26 132/79 (96) 99 Intake and Output 07/28/19 07/29/19 19:00 07:00 Intake Total 620 ml 688.66 ml Output Total 2 ml 0 ml Balance 618 ml 688.66 ml Free Water 30 ml 100 ml IV Total 60 ml 48.66 ml Tube Feeding 530 ml 540 ml Output Urine Total 0 ml Stool Total 2 ml # Bowel Movements 1 1 Laboratory Tests 07/29/19 03:40: White Blood Count 14.0H, Red Blood Count 2.96L, Hemoglobin 8.5L, Hematocrit 29.3L, Mean Corpuscular Volume 99, Mean Corpuscular Hemoglobin 28.8, Mean Corpuscular Hemoglobin Concent 29.2L, Red Cell Distribution Width 18.1H, Platelet Count 410, Mean Platelet Volume 6.6, Neutrophils (%) (Auto) 74.2, Lymphocytes (%) (Auto) 13.8L, Monocytes (%) (Auto) 6.8, Eosinophils (%) (Auto) 3.8H, Basophils (%) (Auto) 1.4, Sodium Level 142, Potassium Level 4.3, Chloride Level 103, Carbon Dioxide Level 25, Anion Gap 14, Blood Urea Nitrogen 81H, Creatinine 10.1H, Estimat Glomerular Filtration Rate 5.2, Glucose Level 142H, Calcium Level 9.6, Phosphorus Level 2.3L, Magnesium Level 3.0H, Total Bilirubin 0.3, Aspartate Amino Transf (AST/SGOT) 23, Alanine Aminotransferase (ALT/SGPT) < 6L, Alkaline Phosphatase 125H, C-Reactive Protein, Quantitative 4.7H, Pro-B- Type Natriuretic Peptide 76523I, Total Protein 8.3H, Albumin 2.6L, Globulin 5.7 , Albumin/Globulin Ratio 0.5L Height (Feet): 6 Height (Inches): 1.00 Weight (Pounds): 163 General Appearance: no apparent distress EENT: other - Trach and vent Cardiovascular: tachycardia Respiratory/Chest: decreased breath sounds Abdomen: distended Objective No change Mic Cole MD Jul 29, 2019 12:18
[2019-07-29] MEDS: Midodrine 10mg tab NG SCH ×2 (13:06→21:30)
--- NOTE | 2019-07-29 13:15 | Hematology/Onc Progress Note ---
Assessment/Plan Assessment/Plan Assessment and Recs: # Anemia of chronic disease, likely related ot underlying kidney disease has COIVD19++++++ --> hgb trend 9-->8-->7.3-->7.9-->6.8->9.5-->10->8.3-->7.7-->7.1-->8.9->8.8->7.7 -->8.1 ->7.9-->7.7 -->8.2-->8.1 -->7.9-->8.5 -->9->9.2-->9.5-->10.7 -->9.8--> 10.2-->11.8 -->11.9-->8.8 ->9.4->9-->8.3 -->8.5 --> transfuse as needed, hgb goal >7 --> no evidence of hemolysis --> peripheral smear has been reviewed --> epogen started 3 x a week ==>> transfuse 06/08, 06/15 # Leukocytosis likely related to suspected COVID-19 virus infection --> completed plaquenil --> trend smear as needed --> wbc trend: 4-->11-->14.5-->21-->26-->21->24--.28-->23-->19-->16.2-->21--> 11.2 -->12.5-->12.3-->12.4-->18.5-->18.5-->17->13-->18.2-->22.2-->25-->17.4-->17 -->14.2-->14 --> pulm is aware --> on abx cefepime/vanc->zosyn/vanc-->dom/vanc-->dom-->levaquin/cefepime--> vanc --> pressors as needed --> 06/27 covid 19++ --> pressors as needed in icu # Thrombocytopenia/Lymphopenia --> likely related to covid19 --> plt 129k-->186k-->251-->285-->384 -->430-->539-->515-->447-->451-->404-->544 -->244 # Respiratory failure with covid19+ --> s/p vent/trach --> weaning # Possible Pneumonia --> abx completed --> 07/13 cxr: Improved right lung infiltrates. # Cardiomegaly # Transaminitis with Elevated AST # COPD # Chronic Kidney Disease --> per renal hd --> s/p right femoral cath 07/02 # Hypertension # Dvt ppx lovenox # peg Appreciate consultation and dw Rn Subjective Constitutional: Denies: no symptoms, chills, fever, malaise, weakness, other HEENT: Denies: no symptoms, eye pain, blurred vision, tearing, double vision, ear pain, ear discharge, nose pain, nose congestion, throat pain, throat swelling, mouth pain, mouth swelling, other Cardiovascular: Denies: no symptoms, chest pain, edema, irregular heart rate, lightheadedness, palpitations, syncope, other Respiratory: Denies: no symptoms, cough, shortness of breath, SOB with excertion, SOB at rest, sputum, wheezing, other Gastrointestinal/Abdominal: Denies: no symptoms, abdomen distended, abdominal pain, black stools, tarry stools, blood in stool, constipated, diarrhea, difficulty swallowing, nausea, poor appetite, poor fluid intake, rectal bleeding , vomiting, other Genitourinary: Denies: no symptoms, burning, discharge, frequency, flank pain, hematuria, incontinence, pain, urgency, other Neurologic/Psychiatric: Denies: no symptoms, anxiety, depressed, emotional problems, headache, numbness, paresthesia, pre-existing deficit, seizure, tingling, tremors, weakness, other Endocrine: Denies: no symptoms, excessive sweating, flushing, intolerance to cold, intolerance to heat, increased hunger, increased thirst, increased urine, unexplained weight gain, unexplained weight loss, other Allergies: Coded Allergies: No Known Allergies (Unverified , 05/28/19) Subjective 06/01 nv, extremely agitated, not allowing labs draws, no night sweats, cbc ordered 06/02 confused, restraints, on abx and plaquenil, hgb 7.9, nrb 15 L 06/03 is with nonrebreather, but not compliant, remains confused 06/05 no bleeding, labs noted, no major bleeding, otherwise comfortable 06/06 labs reviewed, no bleeding, meds noted, no night sweats, on levo and nonrebreather 06/07 labs noted, no bleeding, meds reviewed, no bleeding, wbc higher 06/08 to get 2 units prbc, no night sweats, meds reviewed 06/09 is on cefepime and vanc, labs noted, ernesto Rn, no bleeding 06/10 no major changes, labs reviewed, wbc 28k, on abx, cefepime 06/12 remains in icu, labs noted, no night sweats or bleeding 06/13 sluggish pupils, remains agitated, per psych, no bleding, on vent, wbc sitll high 06/14 still confused, remains on vent, with ng, running nepro, on pressors 06/15 icu, febrile, non verbal, hgb 7.1, blood pending, completed plaq 06/16 remains in the icu, nonverbal, plan for hd tomorrow, ernesto rn 06/17 in icu, on pressor, nonverbal, on abx, no bleeding 06/19 no bleeding, nonverbal in icu, hgb is 7.7 06/20 on zosyn, tube feeds, vent, labs noted, in icu, nv 06/21 gettng hd as per renal, in icu, nv, no bleeding, tfs 06/22 icu, cxr with slight improvement, cooling blanket, weaning today 06/23 wewaning, in icu, on vent, abx, and pressors as needed, labs noted 06/24 failed weaning, off abx, completed plaquenil, hgb 8.1 06/26 icu, weaning for this am, afebrile, hgb 8 06/27 in icu, remains comotose, weaning started on peep, no night sweats 06/28 weaning today, off abx, restraints, no distress, h/h stable 06/29 covid 19+, failed weaning, no blood transfusion needed 06/30 icu, on vent, labs reviewed, no distress 07/01 in icu, may need trach, remains on hd per renal, labs noted 07/02 s/p right fem cath, failed wean, no new orders, h/h stable 07/03 is somewhat more responsive, on abx, no bleeding, weaning and HD today 07/04 hd as per renal, weaning off vent, no bleeding today 07/05 obtunded, no bleding overnight, with hd for tomorrow noted, vanc 07/08 no events, remains with trach/vent, ernesto Rn, no bleeding, cbc is noted 07/09 no overnight events, peg for friday pending consent 07/10 off pressors, vent, restraints, labs reviewed 07/11 no acute events is on pressors, intubated, agitated still 07/12 is resting comfortably, no bleeding, emds reviewed and noted 07/13 icu, no events, trach, cxr reviewed, 07/14 is onv ent, tachypneic and tachycardic, labs noted 07/15 remains confused, intubated, ernesto Rn, no bleeding 07/17 icu, cxr improving infiltrates, levo gtt, airborne/contact isolation 07/18 is on broad spectrum abx, is on levaquin and cefepime, wbc 16 agitated 07/19 icu, levo gtt, cxr unchanged, tachy, hd thursday 07/20 sedated, safety restraints, labs reviewed 07/21 hd was done yesterday, lower pressor requirements, wbc is worse, on abx 07/22 icu, meds and labs reviewed, vent, no distress 07/24 on vent, in icu, labs noted, remains agitated, and confused 07/25 remains obtunded, on vent, on pressor, hgb 9, wbc elev 07/26 icu, levo gtt, vent, iv abx, nonverbal 07/27 failed weaning, labs reviewed, repeat covid swab pending 07/28 labs are noted, no bleeding, on vent/trach gtube feeds ernesto rn Objective Objective Current Medications Medications (Trade) Dose Ordered Sig/Anthony Route PRN Reason Start Time Stop Time Status Last Admin Dose Admin Acetaminophen (Tylenol) 650 mg Q4H PRN NG For Pain 07/11/19 08:00 08/10/19 07:59 07/28/19 08:09 Albuterol Sulfate (Proventil MDI) 2 puff Q4HRT INH 06/06/19 23:00 08/30/19 18:59 07/29/19 07:22 Chlorhexidine Gluconate (Michelle-Hex 2%) 1 applic DAILY@2000 TOPIC 06/07/19 20:00 09/05/19 19:59 07/28/19 19:31 Dextrose (Dextrose 50%) 25 ml Q30M PRN IV Hypoglycemia 06/20/19 19:30 09/18/19 19:29 Dextrose (Dextrose 50%) 50 ml Q30M PRN IV Hypoglycemia 06/20/19 19:30 09/18/19 19:29 Dopamine HCl/ Dextrose 250 ml @ 0 mls/hr Q24H PRN IV For hypotension 06/13/19 08:15 09/11/19 08:14 07/17/19 08:46 Enoxaparin Sodium (Lovenox) 30 mg DAILY SUBQ 06/07/19 09:00 08/27/19 08:59 07/29/19 09:29 Epoetin Aftab (Epoetin Aftab(ESRD on dialysis)) 10,000 unit SUBQ 06/07/19 21:00 08/31/19 20:59 07/28/19 21:17 Fentanyl Citrate 250 ml @ 0 mls/hr Q24H IV 07/19/19 14:06 10/17/19 14:05 07/28/19 21:16 Haloperidol Lactate 5 mg/ Dextrose 56 ml @ 224 mls/hr Q6H PRN IVPB Agitation 07/11/19 15:00 08/25/19 14:59 07/15/19 02:36 Hydralazine HCl (Apresoline) 10 mg Q4H PRN IV Blood pressure over 160 systol 06/07/19 10:15 09/05/19 10:14 Insulin Aspart (NovoLOG) EVERY 6 HOURS SUBQ 06/21/19 00:00 09/19/19 00:00 07/28/19 18:14 Midodrine (Pro-Amatine) 10 mg Q8HR NG 07/29/19 14:00 10/15/19 10:29 07/29/19 13:06 Norepinephrine Bitartrate 8 mg/ Sodium Chloride 250 ml @ 0 mls/hr Q24H IV 07/23/19 16:15 08/22/19 16:14 07/24/19 17:41 Pantoprazole (Protonix) 40 mg DAILY IVP 07/27/19 09:00 08/26/19 08:59 07/29/19 09:28 Vancomycin HCl (Vanco pharmacy to dose) 1 ea DAILY PRN MISC Per rx protocol 07/20/19 10:45 08/19/19 10:44 Last 24 Hour Vital Signs Date Time Temp Pulse Resp B/P (MAP) Pulse Ox O2 Delivery O2 Flow Rate FiO2 07/29/19 12:34 103 20 143/78 (99) 100 07/29/19 12:01 95 28 138/76 (96) 99 07/29/19 12:00 30 07/29/19 12:00 Mechanical Ventilator 07/29/19 12:00 26 138/76 Mechanical Ventilator 30 07/29/19 12:00 94 07/29/19 11:30 88 25 124/70 (88) 99 07/29/19 11:23 95 27 30 07/29/19 11:00 26 153/77 Mechanical Ventilator 30 07/29/19 11:00 82 23 153/77 (102) 100 07/29/19 10:05 81 25 149/82 (104) 100 07/29/19 10:00 26 149/82 Mechanical Ventilator 30 07/29/19 09:30 80 21 153/81 (105) 100 07/29/19 09:00 82 25 144/75 (98) 100 07/29/19 09:00 26 144/75 Mechanical Ventilator 30 07/29/19 08:30 80 19 141/79 (99) 100 07/29/19 08:00 30 07/29/19 08:00 99.0 76 22 133/74 (93) 100 07/29/19 08:00 79 07/29/19 08:00 26 133/74 Mechanical Ventilator 30 07/29/19 08:00 Mechanical Ventilator 07/29/19 07:30 81 16 139/78 (98) 100 07/29/19 07:22 79 26 100 Mechanical Ventilator 30 75 26 30 07/29/19 07:22 100 07/29/19 07:00 77 23 136/72 (93) 100 07/29/19 07:00 26 139/78 Mechanical Ventilator 30 07/29/19 06:30 108 26 07/29/19 06:00 82 26 108/63 (78) 100 6/18/20 06:00 26 108/63 Mechanical Ventilator 30 07/29/19 05:00 90 23 125/72 (89) 100 07/29/19 05:00 23 125/72 Mechanical Ventilator 30 07/29/19 04:00 88 07/29/19 04:00 88 24 127/74 (91) 99 07/29/19 04:00 30 07/29/19 04:00 Mechanical Ventilator 07/29/19 04:00 24 127/74 Mechanical Ventilator 30 07/29/19 03:10 90 26 100 Mechanical Ventilator 30 92 26 30 07/29/19 03:00 23 133/73 Mechanical Ventilator 30 07/29/19 03:00 98.7 94 23 133/73 (93) 100 07/29/19 02:00 79 26 141/71 (94) 100 07/29/19 02:00 26 141/71 Mechanical Ventilator 30 07/29/19 01:00 23 138/69 Mechanical Ventilator 30 07/29/19 01:00 85 23 138/69 (92) 100 07/29/19 00:00 Mechanical Ventilator 07/29/19 00:00 26 138/75 Mechanical Ventilator 30 07/29/19 00:00 99.2 81 26 138/75 (96) 100 07/28/19 23:02 87 28 100 Mechanical Ventilator 30 90 28 30 07/28/19 23:00 85 26 118/63 (81) 100 07/28/19 23:00 24 118/63 Mechanical Ventilator 30 07/28/19 22:00 24 135/66 Mechanical Ventilator 30 07/28/19 22:00 97 24 135/66 (89) 100 07/28/19 21:16 23 123/68 Mechanical Ventilator 30 07/28/19 21:16 23 123/68 30 07/28/19 21:00 94 25 123/68 (86) 07/28/19 20:00 89 07/28/19 20:00 99.3 89 23 113/69 (84) 07/28/19 20:00 23 113/69 Mechanical Ventilator 30 07/28/19 20:00 Mechanical Ventilator 07/28/19 20:00 30 07/28/19 19:08 97 26 100 Mechanical Ventilator 30 99 26 30 07/28/19 19:00 26 116/61 Mechanical Ventilator 30 07/28/19 19:00 94 26 116/61 (79) 100 07/28/19 18:00 25 138/67 Mechanical Ventilator 30 07/28/19 17:57 105 26 125/79 (94) 98 07/28/19 17:30 106 25 164/86 (112) 97 07/28/19 17:00 91 22 153/75 (101) 97 07/28/19 17:00 22 153/75 Mechanical Ventilator 30 07/28/19 16:30 87 22 142/72 (95) 97 07/28/19 16:00 Mechanical Ventilator 07/28/19 16:00 30 07/28/19 16:00 23 132/75 Mechanical Ventilator 30 07/28/19 16:00 86 07/28/19 15:20 88 27 100 Mechanical Ventilator 30 89 28 30 07/28/19 15:00 25 140/80 Mechanical Ventilator 30 07/28/19 14:00 25 140/80 Mechanical Ventilator 30 07/28/19 13:57 86 26 130/74 (92) 97 07/28/19 13:30 90 26 132/79 (96) 97 07/28/19 13:00 87 26 116/71 (86) 99 07/28/19 13:00 23 116/71 Mechanical Ventilator 30 07/28/19 12:30 91 26 132/79 (96) 99 07/28/19 12:00 100 07/28/19 12:00 100 26 120/100 (107) 99 07/28/19 12:00 30 07/28/19 12:00 Mechanical Ventilator 07/28/19 12:00 19 120/100 Mechanical Ventilator 30 07/28/19 11:30 86 26 127/72 (90) 100 07/28/19 11:00 22 142/85 Mechanical Ventilator 30 07/28/19 11:00 91 26 100 Mechanical Ventilator 30 91 25 30 07/28/19 11:00 89 26 142/85 (104) 100 07/28/19 10:30 91 26 139/74 (95) 97 07/28/19 10:00 17 135/76 Mechanical Ventilator 30 07/28/19 10:00 89 23 135/76 (95) 97 07/28/19 09:45 100 07/28/19 09:30 89 16 147/73 (97) 98 07/28/19 09:00 19 147/73 Mechanical Ventilator 30 07/28/19 09:00 89 20 142/74 (96) 98 07/28/19 08:30 90 17 140/73 (95) 99 07/28/19 08:00 98.7 89 26 121/59 (79) 99 07/28/19 08:00 21 140/73 Mechanical Ventilator 30 07/28/19 08:00 88 07/28/19 08:00 Mechanical Ventilator 07/28/19 08:00 30 07/28/19 07:30 92 19 129/72 (91) 100 07/28/19 07:11 96 26 100 Mechanical Ventilator 30 96 26 30 07/28/19 07:00 96 23 126/69 (88) 100 07/28/19 07:00 24 129/72 Mechanical Ventilator 30 07/28/19 06:30 104 28 07/28/19 06:00 104 24 129/74 (92) 100 07/28/19 05:00 103 1 120/69 (86) 100 07/28/19 04:00 30 07/28/19 04:00 107 23 119/64 (82) 100 07/28/19 04:00 23 119/64 Mechanical Ventilator 30 07/28/19 04:00 107 07/28/19 04:00 Mechanical Ventilator 07/28/19 03:30 106 27 100 Mechanical Ventilator 30 109 27 30 07/28/19 03:00 86 15 140/63 (88) 100 07/28/19 03:00 25 140/63 Mechanical Ventilator 30 07/28/19 02:00 82 23 130/61 (84) 100 07/28/19 02:00 23 130/61 Mechanical Ventilator 30 07/28/19 01:30 79 18 127/65 (85) 100 07/28/19 01:00 23 121/71 Mechanical Ventilator 30 07/28/19 01:00 76 23 121/71 (88) 100 07/28/19 00:30 84 22 107/61 (76) 100 07/28/19 00:00 79 07/28/19 00:00 30 07/28/19 00:00 79 17 119/61 (80) 100 07/28/19 00:00 Mechanical Ventilator 07/28/19 00:00 23 108/50 Mechanical Ventilator 30 07/27/19 23:41 84 28 100 Mechanical Ventilator 30 85 26 30 07/27/19 23:30 88 12 134/63 (86) 100 07/27/19 23:00 27 120/59 Mechanical Ventilator 30 07/27/19 23:00 87 8 120/59 (79) 100 07/27/19 22:00 27 112/57 Mechanical Ventilator 30 07/27/19 22:00 79 27 112/57 (75) 100 07/27/19 21:00 71 27 99/52 (68) 100 07/27/19 21:00 27 99/52 Mechanical Ventilator 30 07/27/19 20:00 81 07/27/19 20:00 27 106/68 Mechanical Ventilator 30 07/27/19 20:00 98.9 78 27 106/68 (81) 100 07/27/19 20:00 Mechanical Ventilator 07/27/19 20:00 30 07/27/19 19:50 79 26 100 Mechanical Ventilator 30 80 27 30 07/27/19 19:30 75 27 100/51 (67) 100 07/27/19 19:00 80 25 92/50 (64) 100 07/27/19 19:00 25 92/50 Mechanical Ventilator 30 07/27/19 18:00 80 0 90/54 (66) 100 07/27/19 18:00 25 90/54 Mechanical Ventilator 30 07/27/19 17:00 84 18 131/69 (89) 100 07/27/19 17:00 22 131/69 Mechanical Ventilator 30 07/27/19 16:30 80 25 127/64 (85) 100 07/27/19 16:15 131/69 07/27/19 16:00 Mechanical Ventilator 07/27/19 16:00 30 07/27/19 16:00 25 128/66 Mechanical Ventilator 30 07/27/19 16:00 81 21 128/66 (86) 100 07/27/19 16:00 98.4 81 21 128/66 (86) 100 07/27/19 16:00 85 07/27/19 15:30 84 24 128/67 (87) 100 07/27/19 15:29 81 26 100 Mechanical Ventilator 30 80 26 30 07/27/19 15:00 18 132/65 Mechanical Ventilator 30 07/27/19 15:00 84 25 132/65 (87) 100 07/27/19 14:30 87 23 113/66 (82) 100 07/27/19 14:00 86 27 116/66 (83) 100 07/27/19 14:00 24 111/58 Mechanical Ventilator 30 07/27/19 13:30 85 26 111/67 (82) 100 Intake and Output 07/28/19 07/29/19 19:00 07:00 Intake Total 620 ml 693.66 ml Output Total 2 ml 0 ml Balance 618 ml 693.66 ml Free Water 30 ml 100 ml IV Total 60 ml 53.66 ml Tube Feeding 530 ml 540 ml Output Urine Total 0 ml Stool Total 2 ml # Bowel Movements 1 1 Labs Test 07/27/19 03:15 07/28/19 03:05 07/29/19 03:40 Random Vancomycin Level 17.1 ug/mL White Blood Count 14.2 K/UL (4.8-10.8) 14.0 K/UL (4.8-10.8) Red Blood Count 2.83 M/UL (4.70-6.10) 2.96 M/UL (4.70-6.10) Hemoglobin 8.2 G/DL (14.2-18.0) 8.5 G/DL (14.2-18.0) Hematocrit 28.2 % (42.0-52.0) 29.3 % (42.0-52.0) Mean Corpuscular Volume 100 FL (80-99) 99 FL (80-99) Mean Corpuscular Hemoglobin 28.9 PG (27.0-31.0) 28.8 PG (27.0-31.0) Mean Corpuscular Hemoglobin Concent 29.0 G/DL (32.0-36.0) 29.2 G/DL (32.0-36.0) Red Cell Distribution Width 17.8 % (11.6-14.8) 18.1 % (11.6-14.8) Platelet Count 363 K/UL (150-450) 410 K/UL (150-450) Mean Platelet Volume 7.4 FL (6.5-10.1) 6.6 FL (6.5-10.1) Neutrophils (%) (Auto) 73.6 % (45.0-75.0) 74.2 % (45.0-75.0) Lymphocytes (%) (Auto) 12.6 % (20.0-45.0) 13.8 % (20.0-45.0) Monocytes (%) (Auto) 7.7 % (1.0-10.0) 6.8 % (1.0-10.0) Eosinophils (%) (Auto) 4.6 % (0.0-3.0) 3.8 % (0.0-3.0) Basophils (%) (Auto) 1.5 % (0.0-2.0) 1.4 % (0.0-2.0) Sodium Level 142 MMOL/L (136-145) 142 MMOL/L (136-145) Potassium Level 3.9 MMOL/L (3.5-5.1) 4.3 MMOL/L (3.5-5.1) Chloride Level 103 MMOL/L (98-107) 103 MMOL/L (98-107) Carbon Dioxide Level 26 MMOL/L (21-32) 25 MMOL/L (21-32) Anion Gap 13 mmol/L (5-15) 14 mmol/L (5-15) Blood Urea Nitrogen 70 mg/dL (7-18) 81 mg/dL (7-18) Creatinine 8.9 MG/DL (0.55-1.30) 10.1 MG/DL (0.55-1.30) Estimat Glomerular Filtration Rate 6.0 mL/min (>60) 5.2 mL/min (>60) Glucose Level 160 MG/DL (74-106) 142 MG/DL (74-106) Calcium Level 9.6 MG/DL (8.5-10.1) 9.6 MG/DL (8.5-10.1) Phosphorus Level 2.1 MG/DL (2.5-4.9) 2.3 MG/DL (2.5-4.9) Magnesium Level 2.9 MG/DL (1.8-2.4) 3.0 MG/DL (1.8-2.4) Total Bilirubin 0.4 MG/DL (0.2-1.0) 0.3 MG/DL (0.2-1.0) Aspartate Amino Transf (AST/SGOT) 21 U/L (15-37) 23 U/L (15-37) Alanine Aminotransferase (ALT/SGPT) 12 U/L (12-78) < 6 U/L (12-78) Alkaline Phosphatase 117 U/L (46-116) 125 U/L (46-116) C-Reactive Protein, Quantitative 6.4 mg/dL (0.00-0.90) 4.7 mg/dL (0.00-0.90) Total Protein 7.9 G/DL (6.4-8.2) 8.3 G/DL (6.4-8.2) Albumin 2.6 G/DL (3.4-5.0) 2.6 G/DL (3.4-5.0) Globulin 5.3 g/dL 5.7 g/dL Albumin/Globulin Ratio 0.5 (1.0-2.7) 0.5 (1.0-2.7) Pro-B-Type Natriuretic Peptide 15175 pg/mL (0-125) Height (Feet): 6 Height (Inches): 1.00 Weight (Pounds): 163 Objective General: nv, confused, sedated Heent: bilateral eye normal inspection, bilateral eye PERRL ++Ng Respiratory: normal breath sounds, no respiratory distress, intubated/vent +++ trach+++ Cardiovascular: regular rate, rhythm, no edema Gastrointestinal: normal inspection, soft, non-distended, peg+ Rectal: deferred Musculoskeletal: normal range of motion, non-tender, R fem cath++ Neurologic: alert, motor strength/tone normal, sensory intact, responsive, speech normal Skin: Decubitus/Ulcer - See RN skin exam. : jamaal+ Greg Cabral MD Jul 29, 2019 13:15
--- NOTE | 2019-07-29 15:25 | Surgery Progress Note ---
Surgery Progress Note Subjective Procedure Performed Right femoral temporary hemodialysis catheter removal Additional Comments HD cath working but flow 200's needs new cath plan for IR exchange tomorrow Objective Last 24 Hour Vital Signs Date Time Temp Pulse Resp B/P (MAP) Pulse Ox O2 Delivery O2 Flow Rate FiO2 07/29/19 15:00 111 26 144/87 (106) 99 07/29/19 14:26 121 26 129/96 (107) 100 07/29/19 14:03 95 15 134/57 (82) 100 07/29/19 13:00 99 20 138/87 (104) 100 07/29/19 12:34 103 20 143/78 (99) 100 07/29/19 12:01 95 28 138/76 (96) 99 07/29/19 12:00 99.1 97 26 138/76 (96) 99 07/29/19 12:00 30 07/29/19 12:00 Mechanical Ventilator 07/29/19 12:00 26 138/76 Mechanical Ventilator 30 07/29/19 12:00 94 07/29/19 11:30 88 25 124/70 (88) 99 07/29/19 11:23 95 27 30 07/29/19 11:00 26 153/77 Mechanical Ventilator 30 07/29/19 11:00 82 23 153/77 (102) 100 07/29/19 10:05 81 25 149/82 (104) 100 07/29/19 10:00 26 149/82 Mechanical Ventilator 30 07/29/19 09:30 80 21 153/81 (105) 100 07/29/19 09:00 82 25 144/75 (98) 100 07/29/19 09:00 26 144/75 Mechanical Ventilator 30 07/29/19 08:30 80 19 141/79 (99) 100 07/29/19 08:00 30 07/29/19 08:00 99.0 76 22 133/74 (93) 100 07/29/19 08:00 79 07/29/19 08:00 26 133/74 Mechanical Ventilator 30 07/29/19 08:00 Mechanical Ventilator 07/29/19 07:30 81 16 139/78 (98) 100 07/29/19 07:22 79 26 100 Mechanical Ventilator 30 75 26 30 07/29/19 07:22 100 07/29/19 07:00 77 23 136/72 (93) 100 07/29/19 07:00 26 139/78 Mechanical Ventilator 30 07/29/19 06:30 108 26 07/29/19 06:00 82 26 108/63 (78) 100 07/29/19 06:00 26 108/63 Mechanical Ventilator 30 07/29/19 05:00 90 23 125/72 (89) 100 07/29/19 05:00 23 125/72 Mechanical Ventilator 30 07/29/19 04:00 88 07/29/19 04:00 88 24 127/74 (91) 99 07/29/19 04:00 30 07/29/19 04:00 Mechanical Ventilator 07/29/19 04:00 24 127/74 Mechanical Ventilator 30 07/29/19 03:10 90 26 100 Mechanical Ventilator 30 92 26 30 07/29/19 03:00 23 133/73 Mechanical Ventilator 30 07/29/19 03:00 98.7 94 23 133/73 (93) 100 07/29/19 02:00 79 26 141/71 (94) 100 07/29/19 02:00 26 141/71 Mechanical Ventilator 30 07/29/19 01:00 23 138/69 Mechanical Ventilator 30 07/29/19 01:00 85 23 138/69 (92) 100 07/29/19 00:00 Mechanical Ventilator 07/29/19 00:00 26 138/75 Mechanical Ventilator 30 07/29/19 00:00 99.2 81 26 138/75 (96) 100 07/28/19 23:02 87 28 100 Mechanical Ventilator 30 90 28 30 07/28/19 23:00 85 26 118/63 (81) 100 07/28/19 23:00 24 118/63 Mechanical Ventilator 30 07/28/19 22:00 24 135/66 Mechanical Ventilator 30 07/28/19 22:00 97 24 135/66 (89) 100 07/28/19 21:16 23 123/68 Mechanical Ventilator 30 07/28/19 21:16 23 123/68 30 07/28/19 21:00 94 25 123/68 (86) 07/28/19 20:00 89 07/28/19 20:00 99.3 89 23 113/69 (84) 07/28/19 20:00 23 113/69 Mechanical Ventilator 30 07/28/19 20:00 Mechanical Ventilator 07/28/19 20:00 30 07/28/19 19:08 97 26 100 Mechanical Ventilator 30 99 26 30 07/28/19 19:00 26 116/61 Mechanical Ventilator 30 07/28/19 19:00 94 26 116/61 (79) 100 07/28/19 18:00 25 138/67 Mechanical Ventilator 30 07/28/19 17:57 105 26 125/79 (94) 98 07/28/19 17:30 106 25 164/86 (112) 97 07/28/19 17:00 91 22 153/75 (101) 97 07/28/19 17:00 22 153/75 Mechanical Ventilator 30 07/28/19 16:30 87 22 142/72 (95) 97 07/28/19 16:00 Mechanical Ventilator 07/28/19 16:00 30 07/28/19 16:00 23 132/75 Mechanical Ventilator 30 07/28/19 16:00 86 I&O Intake and Output 07/28/19 07/29/19 19:00 07:00 Intake Total 620 ml 693.66 ml Output Total 2 ml 0 ml Balance 618 ml 693.66 ml Free Water 30 ml 100 ml IV Total 60 ml 53.66 ml Tube Feeding 530 ml 540 ml Output Urine Total 0 ml Stool Total 2 ml # Bowel Movements 1 1 Dressing: other Wound: other Drains: other Cardiovascular: RSR Respiratory: decreased breath sounds Abdomen: soft, present bowel sounds, non-distended Extremities: no cyanosis Laboratory Tests Test 07/29/19 03:40 White Blood Count 14.0 K/UL (4.8-10.8) H Red Blood Count 2.96 M/UL (4.70-6.10) L Hemoglobin 8.5 G/DL (14.2-18.0) L Hematocrit 29.3 % (42.0-52.0) L Mean Corpuscular Volume 99 FL (80-99) Mean Corpuscular Hemoglobin 28.8 PG (27.0-31.0) Mean Corpuscular Hemoglobin Concent 29.2 G/DL (32.0-36.0) L Red Cell Distribution Width 18.1 % (11.6-14.8) H Platelet Count 410 K/UL (150-450) Mean Platelet Volume 6.6 FL (6.5-10.1) Neutrophils (%) (Auto) 74.2 % (45.0-75.0) Lymphocytes (%) (Auto) 13.8 % (20.0-45.0) L Monocytes (%) (Auto) 6.8 % (1.0-10.0) Eosinophils (%) (Auto) 3.8 % (0.0-3.0) H Basophils (%) (Auto) 1.4 % (0.0-2.0) Sodium Level 142 MMOL/L (136-145) Potassium Level 4.3 MMOL/L (3.5-5.1) Chloride Level 103 MMOL/L (98-107) Carbon Dioxide Level 25 MMOL/L (21-32) Anion Gap 14 mmol/L (5-15) Blood Urea Nitrogen 81 mg/dL (7-18) H Creatinine 10.1 MG/DL (0.55-1.30) H Estimat Glomerular Filtration Rate 5.2 mL/min (>60) Glucose Level 142 MG/DL (74-106) H Calcium Level 9.6 MG/DL (8.5-10.1) Phosphorus Level 2.3 MG/DL (2.5-4.9) L Magnesium Level 3.0 MG/DL (1.8-2.4) H Total Bilirubin 0.3 MG/DL (0.2-1.0) Aspartate Amino Transf (AST/SGOT) 23 U/L (15-37) Alanine Aminotransferase (ALT/SGPT) < 6 U/L (12-78) L Alkaline Phosphatase 125 U/L (46-116) H C-Reactive Protein, Quantitative 4.7 mg/dL (0.00-0.90) H Pro-B-Type Natriuretic Peptide 74692 pg/mL (0-125) H Total Protein 8.3 G/DL (6.4-8.2) H Albumin 2.6 G/DL (3.4-5.0) L Globulin 5.7 g/dL Albumin/Globulin Ratio 0.5 (1.0-2.7) L Plan Problems: (1) Suspected COVID-19 virus infection (2) HTN (hypertension) (3) CASSANDRA (acute kidney injury) Assessment & Plan: Needs urgent HD needs access patient okay and consented see note will follow with recs new line placed discussed with team and nephrology HD line functional when checked has TPA now please use appropriately Cathflo used again this flow during dialysis on 430 was low. Will monitor may need line change 5/4 plan for HD as per renal may need to take fluid off with HD edema anasarca dressings saturated and changed will monitor cont with HD IJ left line placed for HD given extent of prior line in place. leukocytosis blood cx negative may need to change out line new line okay HD going well Continue HD as tolerated May need pressors for HD as needed (4) Anemia in chronic kidney disease (CKD) (5) Anemia (6) Renal failure (7) Suspected COVID-19 virus infection Assessment & Plan: Pt deconditioned and despite all skin preventions Pt noted to have developed several pressure injuries. . Stable dry eschar noted to clefts of R and L ears. No erythema noted . DTPI noted to L trochanter. Base of injury is maroon in colour with marginal erythema along borders. Partially opened DTPI Sacrum, R and L Buttocks. Base of wound is maroon with two small open wounds L sacrum and L buttocks. Pt has an APM/MOMO Mattress overlay and is being positioned with pillows as per tolerance and within protocols. worsening despite medical efforts will cont to provide therapy Tx.Plan: Apply Cavilon Skin Barrier to both ears Daily and prn. Apply Moisture Barrier Paste to Sacrum,R and L Buttocks. Cover with Optifoam drsgs. Change every 3 days and PRN. Apply Cavilon Skin Barrier to R and L trochanter. Cover each site with Optifoam drsgs.Change every 7 days and PRN. Apply Cavilon Skin Barrier to both heels. Cover each heel with Optifoam drsg. Change every 7 days and prn. Off-load heels with pillow. Reposition at least every 2hours or as tolerated. APM/MOMO Mattress overlay. (8) COVID-19 Assessment & Plan: COVID + c diff negative febrile leukocytosis renal insufficiency see above cont resp care Rx as per ID worsening on vent support now cxr noted on pressors prognosis guarded repeat covid ++ weaning vent and pressors off slowly showing improvement slowly recovering will need trach as unable to wean vent safely called and spoke with country conservatorship. consent obtained s/p trach pending peg worsening on levo max (9) Sepsis Assessment & Plan: worsening leukocytosis febrile on pressors discussed with ID. lines evaluated and clean. he is septic on pressors and needs central access in difficult venous access patient blood cultures negative will monitor line change tomorrow Yaniv Mast Jul 29, 2019 15:25
[2019-07-29] MEDS: Metoclopramide 10mg/2ml Inj IVP SCH (17:31)
[2019-07-29] MEDS: Dyna-Hex 2% Top Sol 2oz TOPIC SCH (19:23)
--- NOTE | 2019-07-29 21:14 | General Progress Note ---
Assessment/Plan Problem List: (1) HTN (hypertension) ICD Codes: I10 - Essential (primary) hypertension SNOMED: 10409839 (2) CASSANDRA (acute kidney injury) ICD Codes: N17.9 - Acute kidney failure, unspecified SNOMED: 4157118, 72094486 (3) Anemia in chronic kidney disease (CKD) ICD Codes: N18.9 - Chronic kidney disease, unspecified; D63.1 - Anemia in chronic kidney disease SNOMED: 240342533 (4) Renal failure ICD Codes: N19 - Unspecified kidney failure SNOMED: 13452246 (5) Respiratory failure requiring intubation ICD Codes: J96.90 - Respiratory failure, unspecified, unspecified whether with hypoxia or hypercapnia; A41.89 - Other specified sepsis SNOMED: 540419832, 331063636 (6) Pneumonia due to COVID-19 virus ICD Codes: U07.1 - COVID-19; J12.89 - Other viral pneumonia SNOMED: 400542240, 101601232 (7) Sepsis due to severe acute respiratory syndrome coronavirus 2 (SARS-CoV-2) ICD Codes: U07.1 - COVID-19; A41.89 - Other specified sepsis SNOMED: 359519111, 645190336 Status: progressing, unchanged, deteriorating Assessment/Plan: diaylsis today of and on on pressor trach/peg repeat covid is negative septic s/p covid pna Subjective ROS Limited/Unobtainable: Yes Allergies: Coded Allergies: No Known Allergies (Unverified , 05/28/19) Objective Last 24 Hour Vital Signs Date Time Temp Pulse Resp B/P (MAP) Pulse Ox O2 Delivery O2 Flow Rate FiO2 07/29/19 20:00 30 07/29/19 20:00 99.0 102 26 108/71 (83) 99 07/29/19 20:00 Mechanical Ventilator 07/29/19 19:30 107 24 122/82 (95) 100 07/29/19 19:20 108 07/29/19 19:10 105 27 100 Mechanical Ventilator 30 107 27 30 07/29/19 19:00 26 85/60 Mechanical Ventilator 30 07/29/19 19:00 105 26 85/60 (68) 100 07/29/19 18:28 114 26 123/77 (92) 100 6/18/20 18:00 26 108/74 Mechanical Ventilator 30 07/29/19 18:00 119 29 108/74 (85) 100 20 17:30 108 22 133/72 (92) 99 20 17:00 26 116/73 Mechanical Ventilator 30 20 17:00 110 26 116/73 (87) 99 20 16:30 124 26 101/69 (80) 99 07/29/19 16:00 Mechanical Ventilator 07/29/19 16:00 124 07/29/19 16:00 26 101/69 Mechanical Ventilator 30 07/29/19 16:00 125 26 141/94 (110) 100 07/29/19 16:00 30 07/29/19 15:30 120 26 136/89 (105) 100 07/29/19 15:20 119 26 30 07/29/19 15:00 26 144/87 Mechanical Ventilator 30 07/29/19 15:00 111 26 144/87 (106) 99 07/29/19 14:26 121 26 129/96 (107) 100 07/29/19 14:03 95 15 134/57 (82) 100 07/29/19 14:00 26 134/57 Mechanical Ventilator 30 07/29/19 13:00 26 138/87 Mechanical Ventilator 30 07/29/19 13:00 99 20 138/87 (104) 100 07/29/19 12:34 103 20 143/78 (99) 100 07/29/19 12:01 95 28 138/76 (96) 99 07/29/19 12:00 99.1 97 26 138/76 (96) 99 07/29/19 12:00 30 07/29/19 12:00 Mechanical Ventilator 07/29/19 12:00 26 138/76 Mechanical Ventilator 30 07/29/19 12:00 94 07/29/19 11:30 88 25 124/70 (88) 99 07/29/19 11:23 95 27 30 07/29/19 11:00 26 153/77 Mechanical Ventilator 30 07/29/19 11:00 82 23 153/77 (102) 100 07/29/19 10:05 81 25 149/82 (104) 100 20 10:00 26 149/82 Mechanical Ventilator 30 07/29/19 09:30 80 21 153/81 (105) 100 07/29/19 09:00 82 25 144/75 (98) 100 07/29/19 09:00 26 144/75 Mechanical Ventilator 30 07/29/19 08:30 80 19 141/79 (99) 100 07/29/19 08:00 30 07/29/19 08:00 99.0 76 22 133/74 (93) 100 07/29/19 08:00 79 07/29/19 08:00 26 133/74 Mechanical Ventilator 30 07/29/19 08:00 Mechanical Ventilator 07/29/19 07:30 81 16 139/78 (98) 100 07/29/19 07:22 79 26 100 Mechanical Ventilator 30 75 26 30 07/29/19 07:22 100 07/29/19 07:00 77 23 136/72 (93) 100 07/29/19 07:00 26 139/78 Mechanical Ventilator 30 07/29/19 06:30 108 26 07/29/19 06:00 82 26 108/63 (78) 100 07/29/19 06:00 26 108/63 Mechanical Ventilator 30 07/29/19 05:00 90 23 125/72 (89) 100 07/29/19 05:00 23 125/72 Mechanical Ventilator 30 07/29/19 04:00 88 07/29/19 04:00 88 24 127/74 (91) 99 07/29/19 04:00 30 07/29/19 04:00 Mechanical Ventilator 07/29/19 04:00 24 127/74 Mechanical Ventilator 30 07/29/19 03:10 90 26 100 Mechanical Ventilator 30 92 26 30 07/29/19 03:00 23 133/73 Mechanical Ventilator 30 07/29/19 03:00 98.7 94 23 133/73 (93) 100 07/29/19 02:00 79 26 141/71 (94) 100 07/29/19 02:00 26 141/71 Mechanical Ventilator 30 07/29/19 01:00 23 138/69 Mechanical Ventilator 30 07/29/19 01:00 85 23 138/69 (92) 100 07/29/19 00:00 Mechanical Ventilator 07/29/19 00:00 26 138/75 Mechanical Ventilator 30 07/29/19 00:00 99.2 81 26 138/75 (96) 100 07/28/19 23:02 87 28 100 Mechanical Ventilator 30 90 28 30 07/28/19 23:00 85 26 118/63 (81) 100 07/28/19 23:00 24 118/63 Mechanical Ventilator 30 07/28/19 22:00 24 135/66 Mechanical Ventilator 30 07/28/19 22:00 97 24 135/66 (89) 100 07/28/19 21:16 23 123/68 Mechanical Ventilator 30 07/28/19 21:16 23 123/68 30 Intake and Output 07/28/19 07/29/19 19:00 07:00 Intake Total 620 ml 693.66 ml Output Total 2 ml 0 ml Balance 618 ml 693.66 ml Free Water 30 ml 100 ml IV Total 60 ml 53.66 ml Tube Feeding 530 ml 540 ml Output Urine Total 0 ml Stool Total 2 ml # Bowel Movements 1 1 Laboratory Tests 07/29/19 03:40: White Blood Count 14.0H, Red Blood Count 2.96L, Hemoglobin 8.5L, Hematocrit 29.3L, Mean Corpuscular Volume 99, Mean Corpuscular Hemoglobin 28.8, Mean Corpuscular Hemoglobin Concent 29.2L, Red Cell Distribution Width 18.1H, Platelet Count 410, Mean Platelet Volume 6.6, Neutrophils (%) (Auto) 74.2, Lymphocytes (%) (Auto) 13.8L, Monocytes (%) (Auto) 6.8, Eosinophils (%) (Auto) 3.8H, Basophils (%) (Auto) 1.4, Sodium Level 142, Potassium Level 4.3, Chloride Level 103, Carbon Dioxide Level 25, Anion Gap 14, Blood Urea Nitrogen 81H, Creatinine 10.1H, Estimat Glomerular Filtration Rate 5.2, Glucose Level 142H, Calcium Level 9.6, Phosphorus Level 2.3L, Magnesium Level 3.0H, Total Bilirubin 0.3, Aspartate Amino Transf (AST/SGOT) 23, Alanine Aminotransferase (ALT/SGPT) < 6L, Alkaline Phosphatase 125H, C-Reactive Protein, Quantitative 4.7H, Pro-B- Type Natriuretic Peptide 79707K, Total Protein 8.3H, Albumin 2.6L, Globulin 5.7 , Albumin/Globulin Ratio 0.5L Height (Feet): 6 Height (Inches): 1.00 Weight (Pounds): 163 Karishma Mulligan MD Jul 29, 2019 21:14
[2019-07-30] VITALS (37 sets, daily range): BP systolic 105–159; BP diastolic 65–100
[2019-07-30] MEDS: Albuterol 90mcg Inhaler 8gm INH SCH ×6 (03:04→23:20)
[2019-07-30] MEDS: Midodrine 10mg tab NG SCH ×3 (05:29→21:43)
[2019-07-30] MEDS: Metoclopramide 10mg/2ml Inj IVP SCH ×3 (05:29→21:43)
[2019-07-30] MEDS: NovoLOG Insulin Flexpen SUBQ SCH ×4 (06:00→23:31)
--- NOTE | 2019-07-30 06:39 | Pulmonolgy Critical Care Note ---
Critical Care - Asmt/Plan Assessment/Plan: Pulmonary CCM Progress Note HPI: Patient is a 68 year old man, long term resident, admitted c/o shortness of breath, cough, noted to have Covid 19 Pneumonia, Respiratory Failure Remains on Ventilator, CXR infiltrates stable Septic Shock, remains on pressors - Mitodrine , Levophed PRN, not tolerating weaning, will need placement, repeat COVID19 test now negative Preserved EF FIO2 35%, P5, adequate O2 sats, remains on ACVC, s/p Tracheostomy previously, sp PEG, for Permacath, then placement ID following Seen earlier on 07/29/2019 Past Medical History: COPD, CKD, Hypertension, Anemia Allergies: No Known Allergies Improving Pulmonary Status on HD Physical Exam Vital Signs Noted Stable on ventilator Chronically ill appearing HEENT: moist mm, trach Chest: Occasional rhonchi, BS equal bilaterally Heart: HS1, HS2, RRR Abdomen: SNTND G tube Extremities: No edema, well perfused [employer] LE[employer]: Non focal, sedated Impression: COVID-19 virus infection Pneumonia Respiratory failure on ventilator, wean as tolerated once off pressors CKD - on HD Hypotension on pressors previously Cardiomegaly Lymphopenia Elevated AST COPD Chronic Kidney Disease - HD H/o Hypertension Worsening anemia Plan: SP Tracheostomy / G tube Antibiotics per ID HD Pressors PRN ACVC - wean as tolerated [employer] Medications 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 Monitor cultures/viral studies PPX Hemodialysis per Renal Psychiatry following Laboratory Tests Noted: CXR: Hypoventilatory exam, interstitial changes, cardiomegaly, improving infiltrates Subjective ROS Limited/Unobtainable: No Constitutional: Denies: fever Respiratory: Reports: dry cough, shortness of breath Gastrointestinal/Abdominal: Reports: diarrhea, other - colace was stopped Psychiatric: Reports: other - refuses labs Allergies: Coded Allergies: No Known Allergies (Unverified , 05/28/19) All Systems: reviewed and negative except above Labs noted Critical Care - Objective Last 24 Hour Vital Signs Date Time Temp Pulse Resp B/P (MAP) Pulse Ox O2 Delivery O2 Flow Rate FiO2 07/30/19 06:00 96 26 116/70 (85) 100 07/30/19 05:30 100 25 117/74 (88) 100 07/30/19 05:15 99 26 117/75 (89) 100 07/30/19 05:00 100 27 142/78 (99) 100 07/30/19 04:00 30 07/30/19 04:00 99.4 103 19 114/74 (87) 99 07/30/19 04:00 Mechanical Ventilator 07/30/19 03:30 105 24 117/70 (86) 99 07/30/19 03:21 105 07/30/19 03:05 107 26 100 Mechanical Ventilator 30 106 26 30 07/30/19 03:00 108 26 116/65 (82) 100 07/30/19 02:30 118 19 120/70 (87) 100 07/30/19 02:00 118 24 142/100 (114) 99 07/30/19 01:00 121 19 154/85 (108) 99 07/30/19 00:30 107 15 159/88 (111) 99 07/30/19 00:00 99.0 100 15 134/81 (98) 99 07/30/19 00:00 30 07/30/19 00:00 Mechanical Ventilator 07/30/19 00:00 100 07/29/19 23:30 96 23 135/83 (100) 99 07/29/19 23:04 90 26 100 Mechanical Ventilator 30 91 26 30 07/29/19 23:00 91 24 113/75 (88) 99 07/29/19 22:30 92 17 113/71 (85) 100 07/29/19 22:00 25 127/60 Mechanical Ventilator 30 07/29/19 22:00 97 25 127/64 (85) 100 07/29/19 21:45 97 25 124/76 (92) 100 07/29/19 21:45 25 124/76 Mechanical Ventilator 30 07/29/19 21:30 21 113/63 Mechanical Ventilator 30 07/29/19 21:30 97 21 113/63 (80) 100 07/29/19 21:15 97 27 107/71 (83) 100 07/29/19 21:00 97 25 97/72 (80) 100 20 21:00 25 97/72 Mechanical Ventilator 30 07/29/19 20:30 98 26 114/66 (82) 99 20 20:00 30 07/29/19 20:00 99.0 102 26 108/71 (83) 99 20 20:00 26 108/71 Mechanical Ventilator 30 07/29/19 20:00 Mechanical Ventilator 6/18/20 19:30 107 24 122/82 (95) 100 6/18/20 19:20 108 6/18/20 19:10 105 27 100 Mechanical Ventilator 30 107 27 30 618/20 19:00 26 85/60 Mechanical Ventilator 30 618/20 19:00 105 26 85/60 (68) 100 6/18/20 18:28 114 26 123/77 (92) 100 61820 18:00 26 108/74 Mechanical Ventilator 30 20 18:00 119 29 108/74 (85) 100 618/20 17:30 108 22 133/72 (92) 99 618/20 17:00 26 116/73 Mechanical Ventilator 30 20 17:00 110 26 116/73 (87) 99 20 16:30 124 26 101/69 (80) 99 20 16:00 Mechanical Ventilator 07/29/19 16:00 124 1820 16:00 26 101/69 Mechanical Ventilator 30 07/29/19 16:00 125 26 141/94 (110) 100 1820 16:00 30 20 15:30 120 26 136/89 (105) 100 20 15:20 119 26 30 20 15:00 26 144/87 Mechanical Ventilator 30 07/29/19 15:00 111 26 144/87 (106) 99 18/20 14:26 121 26 129/96 (107) 100 1820 14:03 95 15 134/57 (82) 100 20 14:00 26 134/57 Mechanical Ventilator 30 20 13:00 26 138/87 Mechanical Ventilator 30 20 13:00 99 20 138/87 (104) 100 61820 12:34 103 20 143/78 (99) 100 20 12:01 95 28 138/76 (96) 99 20 12:00 99.1 97 26 138/76 (96) 99 18/20 12:00 30 1820 12:00 Mechanical Ventilator 20 12:00 26 138/76 Mechanical Ventilator 30 07/29/19 12:00 94 07/29/19 11:30 88 25 124/70 (88) 99 6/18/20 11:23 95 27 30 07/29/19 11:00 26 153/77 Mechanical Ventilator 30 07/29/19 11:00 82 23 153/77 (102) 100 07/29/19 10:05 81 25 149/82 (104) 100 07/29/19 10:00 26 149/82 Mechanical Ventilator 30 07/29/19 09:30 80 21 153/81 (105) 100 07/29/19 09:00 82 25 144/75 (98) 100 07/29/19 09:00 26 144/75 Mechanical Ventilator 30 07/29/19 08:30 80 19 141/79 (99) 100 07/29/19 08:00 30 07/29/19 08:00 99.0 76 22 133/74 (93) 100 07/29/19 08:00 79 07/29/19 08:00 26 133/74 Mechanical Ventilator 30 07/29/19 08:00 Mechanical Ventilator 07/29/19 07:30 81 16 139/78 (98) 100 07/29/19 07:22 79 26 100 Mechanical Ventilator 30 75 26 30 07/29/19 07:22 100 07/29/19 07:00 77 23 136/72 (93) 100 07/29/19 07:00 26 139/78 Mechanical Ventilator 30 Micro: Microbiology Date/Time Source Procedure Growth Status 07/27/19 18:41 Nasopharynx Coronavirus COVID-19 PCR ([facility]) - Final Complete Accucheck: 165 Critical Care - Subjective ROS Limited/Unobtainable: No Condition: improving IV Access: central FI02: 30 Vent Support Breath Rate: 26 Vent Support Mode: AC Vent Tidal Volume: 500 Sputum Amount: Small PEEP: 5.0 PIP: 28 Tube Feeding Amount: 0 I&O: Intake and Output 07/29/19 07/30/19 19:00 07:00 Intake Total 455 ml 104.25 ml Output Total 1000 ml 0 ml Balance -545 ml 104.25 ml IV Total 60 ml 14.25 ml Tube Feeding 315 ml 0 ml Other 80 ml 90 ml Output Urine Total 0 ml 0 ml Hemodialysis UF 1000 ml # Bowel Movements 2 2 ET-Tube: 7.5 ET Position: 24 Arturo Mckeon MD Jul 30, 2019 06:39
[2019-07-30] MEDS: Pantoprazole Inj IVP SCH (08:16)
[2019-07-30] MEDS: Enoxaparin 30mg Inj SUBQ SCH (08:17)
--- NOTE | 2019-07-30 08:29 | Hematology/Onc Progress Note ---
Assessment/Plan Assessment/Plan Assessment and Recs: # Anemia of chronic disease, likely related ot underlying kidney disease has COIVD19++++++ --> hgb trend 9-->8-->7.3-->7.9-->6.8->9.5-->10->8.3-->7.7-->7.1-->8.9->8.8->7.7 -->8.1 ->7.9-->7.7 -->8.2-->8.1 -->7.9-->8.5 -->9->9.2-->9.5-->10.7 -->9.8--> 10.2-->11.8 -->11.9-->8.8 ->9.4->9-->8.3 -->8.5 --> transfuse as needed, hgb goal >7 --> no evidence of hemolysis --> peripheral smear has been reviewed --> epogen started 3 x a week ==>> transfuse 06/08, 06/15 # Leukocytosis likely related to suspected COVID-19 virus infection --> completed plaquenil --> trend smear as needed --> wbc trend: 4-->11-->14.5-->21-->26-->21->24--.28-->23-->19-->16.2-->21--> 11.2 -->12.5-->12.3-->12.4-->18.5-->18.5-->17->13-->18.2-->22.2-->25-->17.4-->17 -->14.2-->14 --> pulm is aware --> on abx cefepime/vanc->zosyn/vanc-->dom/vanc-->dom-->levaquin/cefepime--> vanc --> pressors as needed --> 06/27 covid 19++ --> pressors as needed in icu # Thrombocytopenia/Lymphopenia --> likely related to covid19 --> plt 129k-->186k-->251-->285-->384 -->430-->539-->515-->447-->451-->404-->544 -->244 # Respiratory failure with covid19+ --> s/p vent/trach --> weaning # Possible Pneumonia --> abx completed --> 07/13 cxr: Improved right lung infiltrates. # Cardiomegaly # Transaminitis with Elevated AST # COPD # Chronic Kidney Disease --> per renal hd --> s/p right femoral cath 07/02 # Hypertension # Dvt ppx lovenox # peg Appreciate consultation and ernesto Rn Subjective Allergies: Coded Allergies: No Known Allergies (Unverified , 05/28/19) Subjective 06/01 nv, extremely agitated, not allowing labs draws, no night sweats, cbc ordered 06/02 confused, restraints, on abx and plaquenil, hgb 7.9, nrb 15 L 06/03 is with nonrebreather, but not compliant, remains confused 06/05 no bleeding, labs noted, no major bleeding, otherwise comfortable 06/06 labs reviewed, no bleeding, meds noted, no night sweats, on levo and nonrebreather 06/07 labs noted, no bleeding, meds reviewed, no bleeding, wbc higher 06/08 to get 2 units prbc, no night sweats, meds reviewed 06/09 is on cefepime and vanc, labs noted, ernesto Rn, no bleeding 06/10 no major changes, labs reviewed, wbc 28k, on abx, cefepime 06/12 remains in icu, labs noted, no night sweats or bleeding 06/13 sluggish pupils, remains agitated, per psych, no bleding, on vent, wbc sitll high 06/14 still confused, remains on vent, with ng, running nepro, on pressors 06/15 icu, febrile, non verbal, hgb 7.1, blood pending, completed plaq 06/16 remains in the icu, nonverbal, plan for hd tomorrow, ernesto rn 06/17 in icu, on pressor, nonverbal, on abx, no bleeding 06/19 no bleeding, nonverbal in icu, hgb is 7.7 06/20 on zosyn, tube feeds, vent, labs noted, in icu, nv 06/21 gettng hd as per renal, in icu, nv, no bleeding, tfs 06/22 icu, cxr with slight improvement, cooling blanket, weaning today 06/23 wewaning, in icu, on vent, abx, and pressors as needed, labs noted 06/24 failed weaning, off abx, completed plaquenil, hgb 8.1 06/26 icu, weaning for this am, afebrile, hgb 8 06/27 in icu, remains comotose, weaning started on peep, no night sweats 06/28 weaning today, off abx, restraints, no distress, h/h stable 06/29 covid 19+, failed weaning, no blood transfusion needed 06/30 icu, on vent, labs reviewed, no distress 07/01 in icu, may need trach, remains on hd per renal, labs noted 07/02 s/p right fem cath, failed wean, no new orders, h/h stable 07/03 is somewhat more responsive, on abx, no bleeding, weaning and HD today 07/04 hd as per renal, weaning off vent, no bleeding today 07/05 obtunded, no bleding overnight, with hd for tomorrow noted, vanc 07/08 no events, remains with trach/vent, ernesto Rn, no bleeding, cbc is noted 07/09 no overnight events, peg for friday pending consent 07/10 off pressors, vent, restraints, labs reviewed 07/11 no acute events is on pressors, intubated, agitated still 07/12 is resting comfortably, no bleeding, emds reviewed and noted 07/13 icu, no events, trach, cxr reviewed, 07/14 is onv ent, tachypneic and tachycardic, labs noted 07/15 remains confused, intubated, ernesto Rn, no bleeding 07/17 icu, cxr improving infiltrates, levo gtt, airborne/contact isolation 07/18 is on broad spectrum abx, is on levaquin and cefepime, wbc 16 agitated 07/19 icu, levo gtt, cxr unchanged, tachy, hd thursday 07/20 sedated, safety restraints, labs reviewed 07/21 hd was done yesterday, lower pressor requirements, wbc is worse, on abx 07/22 icu, meds and labs reviewed, vent, no distress 07/24 on vent, in icu, labs noted, remains agitated, and confused 07/25 remains obtunded, on vent, on pressor, hgb 9, wbc elev 07/26 icu, levo gtt, vent, iv abx, nonverbal 07/27 failed weaning, labs reviewed, repeat covid swab pending 07/28 labs are noted, no bleeding, on vent/trach gtube feeds dw rn 07/29 iuc, restraints, no new changes, vent Objective Objective Current Medications Medications (Trade) Dose Ordered Sig/Anthony Route PRN Reason Start Time Stop Time Status Last Admin Dose Admin Acetaminophen (Tylenol) 650 mg Q4H PRN NG For Pain 07/11/19 08:00 08/10/19 07:59 07/28/19 08:09 Albuterol Sulfate (Proventil MDI) 2 puff Q4HRT INH 06/06/19 23:00 08/30/19 18:59 07/30/19 07:38 Chlorhexidine Gluconate (Michelle-Hex 2%) 1 applic DAILY@2000 TOPIC 06/07/19 20:00 09/05/19 19:59 07/29/19 19:23 Dextrose (Dextrose 50%) 25 ml Q30M PRN IV Hypoglycemia 06/20/19 19:30 09/18/19 19:29 Dextrose (Dextrose 50%) 50 ml Q30M PRN IV Hypoglycemia 06/20/19 19:30 09/18/19 19:29 Dopamine HCl/ Dextrose 250 ml @ 0 mls/hr Q24H PRN IV For hypotension 06/13/19 08:15 09/11/19 08:14 07/17/19 08:46 Enoxaparin Sodium (Lovenox) 30 mg DAILY SUBQ 06/07/19 09:00 08/27/19 08:59 07/29/19 09:29 Epoetin Aftab (Epoetin Aftab(ESRD on dialysis)) 10,000 unit FRI-FRI-FRI SUBQ 06/07/19 21:00 08/31/19 20:59 07/28/19 21:17 Fentanyl Citrate 250 ml @ 0 mls/hr Q24H IV 07/19/19 14:06 10/17/19 14:05 07/28/19 21:16 Haloperidol Lactate 5 mg/ Dextrose 56 ml @ 224 mls/hr Q6H PRN IVPB Agitation 07/11/19 15:00 08/25/19 14:59 07/15/19 02:36 Hydralazine HCl (Apresoline) 10 mg Q4H PRN IV Blood pressure over 160 systol 06/07/19 10:15 09/05/19 10:14 Insulin Aspart (NovoLOG) EVERY 6 HOURS SUBQ 06/21/19 00:00 09/19/19 00:00 07/29/19 17:32 Metoclopramide HCl (Reglan) 5 mg Q8HR IVP 07/29/19 18:00 08/28/19 17:59 07/30/19 05:29 Midodrine (Pro-Amatine) 10 mg Q8HR NG 07/29/19 14:00 10/15/19 10:29 07/30/19 05:29 Norepinephrine Bitartrate 8 mg/ Sodium Chloride 250 ml @ 0 mls/hr Q24H IV 07/23/19 16:15 08/22/19 16:14 07/24/19 17:41 Pantoprazole (Protonix) 40 mg DAILY IVP 07/27/19 09:00 08/26/19 08:59 07/30/19 08:16 Vancomycin HCl (Vanco pharmacy to dose) 1 ea DAILY PRN MISC Per rx protocol 07/20/19 10:45 08/19/19 10:44 Last 24 Hour Vital Signs Date Time Temp Pulse Resp B/P (MAP) Pulse Ox O2 Delivery O2 Flow Rate FiO2 07/30/19 07:10 87 26 100 Mechanical Ventilator 30 89 26 30 07/30/19 07:00 92 23 139/73 (95) 100 07/30/19 06:30 94 26 07/30/19 06:30 94 26 126/73 (90) 100 07/30/19 06:00 96 26 116/70 (85) 100 07/30/19 05:30 100 25 117/74 (88) 100 07/30/19 05:15 99 26 117/75 (89) 100 07/30/19 05:00 100 27 142/78 (99) 100 07/30/19 04:00 30 07/30/19 04:00 99.4 103 19 114/74 (87) 99 07/30/19 04:00 Mechanical Ventilator 07/30/19 03:30 105 24 117/70 (86) 99 07/30/19 03:21 105 07/30/19 03:05 107 26 100 Mechanical Ventilator 30 106 26 30 6 03:00 108 26 116/65 (82) 100 07/30/19 02:30 118 19 120/70 (87) 100 07/30/19 02:00 118 24 142/100 (114) 99 07/30/19 01:00 121 19 154/85 (108) 99 07/30/19 00:30 107 15 159/88 (111) 99 07/30/19 00:00 99.0 100 15 134/81 (98) 99 07/30/19 00:00 30 07/30/19 00:00 Mechanical Ventilator 07/30/19 00:00 100 07/29/19 23:30 96 23 135/83 (100) 99 07/29/19 23:04 90 26 100 Mechanical Ventilator 30 91 26 30 07/29/19 23:00 91 24 113/75 (88) 99 20 22:30 92 17 113/71 (85) 100 1820 22:00 25 127/60 Mechanical Ventilator 30 07/29/19 22:00 97 25 127/64 (85) 100 07/29/19 21:45 97 25 124/76 (92) 100 1820 21:45 25 124/76 Mechanical Ventilator 30 07/29/19 21:30 21 113/63 Mechanical Ventilator 30 07/29/19 21:30 97 21 113/63 (80) 100 1820 21:15 97 27 107/71 (83) 100 61820 21:00 97 25 97/72 (80) 100 61820 21:00 25 97/72 Mechanical Ventilator 30 20 20:30 98 26 114/66 (82) 99 1820 20:00 30 61820 20:00 99.0 102 26 108/71 (83) 99 618/20 20:00 26 108/71 Mechanical Ventilator 30 20 20:00 Mechanical Ventilator 07/29/19 19:30 107 24 122/82 (95) 100 6/18/20 19:20 108 6/18/20 19:10 105 27 100 Mechanical Ventilator 30 107 27 30 6/18/20 19:00 26 85/60 Mechanical Ventilator 30 6/18/20 19:00 105 26 85/60 (68) 100 6/18/20 18:28 114 26 123/77 (92) 100 6/18/20 18:00 26 108/74 Mechanical Ventilator 30 618/20 18:00 119 29 108/74 (85) 100 6/18/20 17:30 108 22 133/72 (92) 99 6/18/20 17:00 26 116/73 Mechanical Ventilator 30 618/20 17:00 110 26 116/73 (87) 99 618/20 16:30 124 26 101/69 (80) 99 618/20 16:00 Mechanical Ventilator 61820 16:00 124 618/20 16:00 26 101/69 Mechanical Ventilator 30 61820 16:00 125 26 141/94 (110) 100 618/20 16:00 30 618/20 15:30 120 26 136/89 (105) 100 618/20 15:20 119 26 30 618/20 15:00 26 144/87 Mechanical Ventilator 30 1820 15:00 111 26 144/87 (106) 99 618/20 14:26 121 26 129/96 (107) 100 618/20 14:03 95 15 134/57 (82) 100 618/20 14:00 26 134/57 Mechanical Ventilator 30 20 13:00 26 138/87 Mechanical Ventilator 30 20 13:00 99 20 138/87 (104) 100 618/20 12:34 103 20 143/78 (99) 100 618/20 12:01 95 28 138/76 (96) 99 61820 12:00 99.1 97 26 138/76 (96) 99 618/20 12:00 30 618/20 12:00 Mechanical Ventilator 61820 12:00 26 138/76 Mechanical Ventilator 30 618/20 12:00 94 6/1820 11:30 88 25 124/70 (88) 99 61820 11:23 95 27 30 6/18/20 11:00 26 153/77 Mechanical Ventilator 30 07/29/19 11:00 82 23 153/77 (102) 100 07/29/19 10:05 81 25 149/82 (104) 100 07/29/19 10:00 26 149/82 Mechanical Ventilator 30 07/29/19 09:30 80 21 153/81 (105) 100 07/29/19 09:00 82 25 144/75 (98) 100 07/29/19 09:00 26 144/75 Mechanical Ventilator 30 07/29/19 08:30 80 19 141/79 (99) 100 07/29/19 08:00 30 07/29/19 08:00 99.0 76 22 133/74 (93) 100 07/29/19 08:00 79 07/29/19 08:00 26 133/74 Mechanical Ventilator 30 07/29/19 08:00 Mechanical Ventilator 07/29/19 07:30 81 16 139/78 (98) 100 07/29/19 07:22 79 26 100 Mechanical Ventilator 30 75 26 30 07/29/19 07:22 100 07/29/19 07:00 77 23 136/72 (93) 100 07/29/19 07:00 26 139/78 Mechanical Ventilator 30 07/29/19 06:30 108 26 07/29/19 06:00 82 26 108/63 (78) 100 07/29/19 06:00 26 108/63 Mechanical Ventilator 30 07/29/19 05:00 90 23 125/72 (89) 100 07/29/19 05:00 23 125/72 Mechanical Ventilator 30 07/29/19 04:00 88 07/29/19 04:00 88 24 127/74 (91) 99 07/29/19 04:00 30 07/29/19 04:00 Mechanical Ventilator 07/29/19 04:00 24 127/74 Mechanical Ventilator 30 07/29/19 03:10 90 26 100 Mechanical Ventilator 30 92 26 30 07/29/19 03:00 23 133/73 Mechanical Ventilator 30 07/29/19 03:00 98.7 94 23 133/73 (93) 100 07/29/19 02:00 79 26 141/71 (94) 100 07/29/19 02:00 26 141/71 Mechanical Ventilator 30 07/29/19 01:00 23 138/69 Mechanical Ventilator 30 07/29/19 01:00 85 23 138/69 (92) 100 07/29/19 00:00 Mechanical Ventilator 07/29/19 00:00 26 138/75 Mechanical Ventilator 30 07/29/19 00:00 99.2 81 26 138/75 (96) 100 07/28/19 23:02 87 28 100 Mechanical Ventilator 30 90 28 30 07/28/19 23:00 85 26 118/63 (81) 100 07/28/19 23:00 24 118/63 Mechanical Ventilator 30 07/28/19 22:00 24 135/66 Mechanical Ventilator 30 07/28/19 22:00 97 24 135/66 (89) 100 07/28/19 21:16 23 123/68 Mechanical Ventilator 30 07/28/19 21:16 23 123/68 30 07/28/19 21:00 94 25 123/68 (86) 07/28/19 20:00 89 07/28/19 20:00 99.3 89 23 113/69 (84) 07/28/19 20:00 23 113/69 Mechanical Ventilator 30 07/28/19 20:00 Mechanical Ventilator 07/28/19 20:00 30 07/28/19 19:08 97 26 100 Mechanical Ventilator 30 99 26 30 07/28/19 19:00 26 116/61 Mechanical Ventilator 30 07/28/19 19:00 94 26 116/61 (79) 100 07/28/19 18:00 25 138/67 Mechanical Ventilator 30 07/28/19 17:57 105 26 125/79 (94) 98 07/28/19 17:30 106 25 164/86 (112) 97 07/28/19 17:00 91 22 153/75 (101) 97 07/28/19 17:00 22 153/75 Mechanical Ventilator 30 07/28/19 16:30 87 22 142/72 (95) 97 07/28/19 16:00 Mechanical Ventilator 07/28/19 16:00 30 07/28/19 16:00 23 132/75 Mechanical Ventilator 30 07/28/19 16:00 86 07/28/19 15:20 88 27 100 Mechanical Ventilator 30 89 28 30 07/28/19 15:00 25 140/80 Mechanical Ventilator 30 07/28/19 14:00 25 140/80 Mechanical Ventilator 30 07/28/19 13:57 86 26 130/74 (92) 97 07/28/19 13:30 90 26 132/79 (96) 97 07/28/19 13:00 87 26 116/71 (86) 99 07/28/19 13:00 23 116/71 Mechanical Ventilator 30 07/28/19 12:30 91 26 132/79 (96) 99 07/28/19 12:00 100 07/28/19 12:00 100 26 120/100 (107) 99 07/28/19 12:00 30 07/28/19 12:00 Mechanical Ventilator 07/28/19 12:00 19 120/100 Mechanical Ventilator 30 07/28/19 11:30 86 26 127/72 (90) 100 07/28/19 11:00 22 142/85 Mechanical Ventilator 30 07/28/19 11:00 91 26 100 Mechanical Ventilator 30 91 25 30 07/28/19 11:00 89 26 142/85 (104) 100 07/28/19 10:30 91 26 139/74 (95) 97 07/28/19 10:00 17 135/76 Mechanical Ventilator 30 07/28/19 10:00 89 23 135/76 (95) 97 07/28/19 09:45 100 07/28/19 09:30 89 16 147/73 (97) 98 07/28/19 09:00 19 147/73 Mechanical Ventilator 30 07/28/19 09:00 89 20 142/74 (96) 98 07/28/19 08:30 90 17 140/73 (95) 99 Intake and Output 07/29/19 07/30/19 19:00 07:00 Intake Total 455 ml 104.25 ml Output Total 1000 ml 0 ml Balance -545 ml 104.25 ml IV Total 60 ml 14.25 ml Tube Feeding 315 ml 0 ml Other 80 ml 90 ml Output Urine Total 0 ml 0 ml Hemodialysis UF 1000 ml # Bowel Movements 2 2 Labs Test 07/28/19 03:05 07/29/19 03:40 07/30/19 03:45 White Blood Count 14.2 K/UL (4.8-10.8) 14.0 K/UL (4.8-10.8) Red Blood Count 2.83 M/UL (4.70-6.10) 2.96 M/UL (4.70-6.10) Hemoglobin 8.2 G/DL (14.2-18.0) 8.5 G/DL (14.2-18.0) Hematocrit 28.2 % (42.0-52.0) 29.3 % (42.0-52.0) Mean Corpuscular Volume 100 FL (80-99) 99 FL (80-99) Mean Corpuscular Hemoglobin 28.9 PG (27.0-31.0) 28.8 PG (27.0-31.0) Mean Corpuscular Hemoglobin Concent 29.0 G/DL (32.0-36.0) 29.2 G/DL (32.0-36.0) Red Cell Distribution Width 17.8 % (11.6-14.8) 18.1 % (11.6-14.8) Platelet Count 363 K/UL (150-450) 410 K/UL (150-450) Mean Platelet Volume 7.4 FL (6.5-10.1) 6.6 FL (6.5-10.1) Neutrophils (%) (Auto) 73.6 % (45.0-75.0) 74.2 % (45.0-75.0) Lymphocytes (%) (Auto) 12.6 % (20.0-45.0) 13.8 % (20.0-45.0) Monocytes (%) (Auto) 7.7 % (1.0-10.0) 6.8 % (1.0-10.0) Eosinophils (%) (Auto) 4.6 % (0.0-3.0) 3.8 % (0.0-3.0) Basophils (%) (Auto) 1.5 % (0.0-2.0) 1.4 % (0.0-2.0) Sodium Level 142 MMOL/L (136-145) 142 MMOL/L (136-145) Potassium Level 3.9 MMOL/L (3.5-5.1) 4.3 MMOL/L (3.5-5.1) Chloride Level 103 MMOL/L (98-107) 103 MMOL/L (98-107) Carbon Dioxide Level 26 MMOL/L (21-32) 25 MMOL/L (21-32) Anion Gap 13 mmol/L (5-15) 14 mmol/L (5-15) Blood Urea Nitrogen 70 mg/dL (7-18) 81 mg/dL (7-18) Creatinine 8.9 MG/DL (0.55-1.30) 10.1 MG/DL (0.55-1.30) Estimat Glomerular Filtration Rate 6.0 mL/min (>60) 5.2 mL/min (>60) Glucose Level 160 MG/DL (74-106) 142 MG/DL (74-106) Calcium Level 9.6 MG/DL (8.5-10.1) 9.6 MG/DL (8.5-10.1) Phosphorus Level 2.1 MG/DL (2.5-4.9) 2.3 MG/DL (2.5-4.9) Magnesium Level 2.9 MG/DL (1.8-2.4) 3.0 MG/DL (1.8-2.4) Total Bilirubin 0.4 MG/DL (0.2-1.0) 0.3 MG/DL (0.2-1.0) Aspartate Amino Transf (AST/SGOT) 21 U/L (15-37) 23 U/L (15-37) Alanine Aminotransferase (ALT/SGPT) 12 U/L (12-78) < 6 U/L (12-78) Alkaline Phosphatase 117 U/L (46-116) 125 U/L (46-116) C-Reactive Protein, Quantitative 6.4 mg/dL (0.00-0.90) 4.7 mg/dL (0.00-0.90) Total Protein 7.9 G/DL (6.4-8.2) 8.3 G/DL (6.4-8.2) Albumin 2.6 G/DL (3.4-5.0) 2.6 G/DL (3.4-5.0) Globulin 5.3 g/dL 5.7 g/dL Albumin/Globulin Ratio 0.5 (1.0-2.7) 0.5 (1.0-2.7) Pro-B-Type Natriuretic Peptide 30097 pg/mL (0-125) Random Vancomycin Level 20.6 ug/mL Height (Feet): 6 Height (Inches): 1.00 Weight (Pounds): 157 Objective General: nv, confused, sedated Heent: bilateral eye normal inspection, bilateral eye PERRL ++Ng Respiratory: normal breath sounds, no respiratory distress, intubated/vent +++ trach+++ Cardiovascular: regular rate, rhythm, no edema Gastrointestinal: normal inspection, soft, non-distended, peg+ Rectal: deferred Musculoskeletal: normal range of motion, non-tender, R fem cath++ Neurologic: alert, motor strength/tone normal, sensory intact, responsive, speech normal Skin: Decubitus/Ulcer - See RN skin exam. : jamaal+ Misha,Greg Capone MD Jul 30, 2019 08:29
[2019-07-30 09:11] LABS: INR 1.1 (0.9-1.1)
--- NOTE | 2019-07-30 10:31 | Nephrology Progress Note ---
Assessment/Plan Problem List: (1) CASSANDRA (acute kidney injury) (2) Anemia in chronic kidney disease (CKD) (3) HTN (hypertension) (4) COVID-19 Assessment Acute renal failure most likely superimposed on chronic kidney disease Suspected COVID-19 virus infection Possible Pneumonia, lymphopenia, elevated AST Cardiomegaly, possible CHF COPD Hypertension Anemia, most likely related to chronic kidney disease Plan July 29: Patient dialyzed yesterday. Due for dialysis tomorrow. Remains in ICU. Full code. Status post trach tube to ventilator. Status post PEG. July 28: Due for dialysis today. Labs reviewed. Full code. Patient trached and vented. July 27: Last COVID test negative. COVID test will be repeated tomorrow. Will order dialysis tomorrow. Remains full code. Medication list and labs reviewed. July 26: No labs done today. Dialysis done yesterday. Will check lab tomorrow. Dialysis as needed. July 25: Lab reviewed. Dialysis today. Discussed with RN. July 24: Lab reviewed. Do dialysis tomorrow. Discussed with RN. July 23: Lab reviewed. Dialyzed yesterday. Discussed with RN. Remains full code. Next dialysis July 25. Will check labs tomorrow. July 22: Labs reviewed. Due for dialysis today. Discussed with RN. Watch borderline low blood pressure. Discussed with dialysis nurse. July 21: Today's lab reviewed. Will arrange for dialysis tomorrow. Discussed with RN. Aim to keep the blood pressure above 100 systolic. Continue per consultants. July 20: Patient was dialyzed yesterday. Could not ultrafiltrate much due to low blood pressure. Discussed with SHANIQUE Dick today. No labs drawn today. Continue per consultants. July 19: Due for dialysis today. Discussed with SHANIQUE Dick. Continue per consultants. July 18: Dialyzed July 16. Will order dialysis tomorrow July 19. Continues to be on ventilator through trach. No labs done today. Continue per consultants. July 17: Dialyzed yesterday. Stable from renal standpoint of view. Remains full code. Status post trach on vent. Status post PEG. Continue per consultants. July 16: Dialysis today. Will resume Midodrin to prevent hypotension. Patient remains full code. July 15: Dialyzed yesterday, due for dialysis tomorrow. Labs and medication list reviewed. Continue per consultants. Patient remains full code. COVID-19 detected again. July 14: Patient currently on dialysis. This is continuation of dialysis from yesterday as yesterday's dialysis was cut short due to catheter malfunction. Labs and medication reviewed. Continue per consultants. July 13: Patient currently on hemodialysis. The dialysis catheter which is a intrajugular Kamlesh has poor flow. Will try TPA. Continue per consultants. July 12: Due for PEG today. Due for dialysis tomorrow. Continue per consultants. Discussed with RN. July 11: Plan for dialysis today. Discussed with RN. Data reviewed. July 10: Plan for dialysis tomorrow July 11. Waiting for consent to proceed with PEG. Continue per consultants. Medication reviewed. Labs reviewed. Discussed with RN. July 09: Dialyzed yesterday. Labs reviewed. Medication reviewed. Next hemodialysis July 11. July 08: Patient has tracheostomy now. Connected to ventilator. Due for dialysis today. Continue per consultants. Discussed with SHANIQUE Romero. July 07: Patient is due for tracheostomy today. Patient was last dialyzed July 05. Will order dialysis for tomorrow. July 06: Patient is intubated on ventilator however the plan is to extubate today. Patient was dialysis yesterday July 05. The dialysis time was cut short due to patient's respiratory distress. Only 1 L was removed during dialysis yesterday. Today's lab reviewed. Continue per consultants. Will arrange for dialysis as needed. July 05: Patient due for dialysis today. Remains intubated. Will schedule permacath placement in a.m. blood cultures on July 04 are negative. July 04: Patient was dialyzed yesterday. Due for dialysis tomorrow. Continues to be intubated. After tomorrow's dialysis will order a permacath. July 03: Dialysis is about to be started now Continues to be intubated Will plan to remove the femoral dialysis catheter and exchanged for a new temporary catheter per ID recommendation We will check surveillance blood culture tomorrow July 02: Patient was dialyzed yesterday and due for dialysis tomorrow Stable from renal standpoint W on dialysis Continue per consultants, weaning....... etc. July 01: Dialysis today Other status unchanged June 30: Due for dialysis tomorrow Remains intubated on ventilator Labs and medication reviewed Discussed with RN Stable from renal standpoint of view June 29: Dialyzed yesterday Due for dialysis tomorrow Stable from renal standpoint to view Keeps failing weaning process June 28: Patient due for dialysis today Stable from renal standpoint to view Continue per consultants June 27: Labs reviewed Due due for dialysis June 28 Discussed with SHANIQUE Dick Continue per consultants Remains intubated on ventilator June 26 Labs reviewed Dialyzed yesterday Started on weaning today Continue to monitor renal parameters June 16: On dialysis now Potassium supplement implemented Continue per consultants Next dialysis June 27June 15: Status unchanged Dialyzed yesterday will dialyze again tomorrow Potassium supplements given Discussed with RN June 14: Due dialysis today Status: Remains intubated on ventilator June 22: Status unchanged Dialyzed yesterday and duefordialysistomorrow Serum sodium stable today June 21 Remains intubated on ventilator Due dialysis today Emphasized high sodium bath for dialysis June 20: Remains intubated on ventilator Dialyzed June 19 next dialysis June 21 Serum sodium 128, will give 250 cc 3% saline Remains full code Discussed with RN Iron panel ordered June 19: Discussed with RN. Patient due for dialysis today. Continue pulmonary support. Remains full code. June 18: Patient dialyzed yesterday June 17 Serum sodium improved but still low Arrange for dialysis tomorrow June 19 Continue per consultants June 8: Due for dialysis today Today's lab reviewed, low serum sodium noted, Emphasized on high sodium bath to dialysis nurse Discussed with SHANIQUE Yuen June 7: Dialyzed yesterday Remains intubated Labs reviewed, serum sodium 131 Plan to dialyze tomorrow June 17 with high sodium bath Discussed with SHANIQUE Yuen June 6: Due for dialysis today Labs reviewed Discussed with RN Transfuse 1 unit of packed RBCs today for low hemoglobin of 7.1 June 5: Blood pressure well maintained Receive dialysis June 13 next hemodialysis June 15June 4: Discussed with RN in ICU Patient did not receive proper dialysis yesterday due to dialysis catheter malfunction Catheter to be adjusted today and dialyzed to be resumed today Continue per consultants Positive for COVID 28 June 2: Patient now intubated on mechanical ventilation Discussed with SHANIQUE Yuen, today June 12 Patient received dialysis yesterday June 10 next hemodialysis June 12 Blood pressure better maintained Today's labs reviewed Continue per consultants Previously patient received dialysis last evening June 05, next dialysis June 07 which was incomplete due to patient's hypotension Will start on midodrine for blood pressure support. Meanwhile continue other pressors as needed Previously Patient is doing poorly, septic, white blood cells are rising, Hypotension somewhat improved We will keep n.p.o. , NG tube for medications, and change medication to IV as needed Patient remains full code Monitor vancomycin level Previously: Patient pulled out his femoral catheter yesterday June 03 which was reinserted by Dr. Mast Patient scheduled for dialysis again June 04, which again was not done due to dialysis nurse citing catheter malfunction Meanwhile continue management per ID, pulmonary , and psych. Meanwhile white blood cell count is rising. Patient blood pressure borderline low. Will check ABG Previously May 31 : I believe patient need dialysis treatment He however needs to competency assessment if can make decisions or not I will communicate with Dr. Mulligan Previously: Per pulmonary and ID advice Adjust blood pressure medication Renal diet Anemia work-up 2D echocardiogram refused Kidney ultrasound refused Jules catheter Urine studies Per orders Subjective ROS Limited/Unobtainable: Yes Objective Objective Last 24 Hour Vital Signs Date Time Temp Pulse Resp B/P (MAP) Pulse Ox O2 Delivery O2 Flow Rate FiO2 07/30/19 10:00 94 27 133/79 (97) 100 07/30/19 09:00 90 25 125/73 (90) 100 07/30/19 08:00 91 07/30/19 08:00 Mechanical Ventilator 07/30/19 08:00 30 07/30/19 08:00 99.2 90 26 117/73 (88) 100 07/30/19 07:10 87 26 100 Mechanical Ventilator 30 89 26 30 07/30/19 07:00 92 23 139/73 (95) 100 07/30/19 06:30 94 26 07/30/19 06:30 94 26 126/73 (90) 100 07/30/19 06:00 96 26 116/70 (85) 100 07/30/19 05:30 100 25 117/74 (88) 100 07/30/19 05:15 99 26 117/75 (89) 100 07/30/19 05:00 100 27 142/78 (99) 100 07/30/19 04:00 30 07/30/19 04:00 99.4 103 19 114/74 (87) 99 07/30/19 04:00 Mechanical Ventilator 07/30/19 03:30 105 24 117/70 (86) 99 07/30/19 03:21 105 07/30/19 03:05 107 26 100 Mechanical Ventilator 30 106 26 30 620 03:00 108 26 116/65 (82) 100 620 02:30 118 19 120/70 (87) 100 6 02:00 118 24 142/100 (114) 99 620 01:00 121 19 154/85 (108) 99 6 00:30 107 15 159/88 (111) 99 07/30/19 00:00 99.0 100 15 134/81 (98) 99 07/30/19 00:00 30 620 00:00 Mechanical Ventilator 07/30/19 00:00 100 61820 23:30 96 23 135/83 (100) 99 07/29/19 23:04 90 26 100 Mechanical Ventilator 30 91 26 30 620 23:00 91 24 113/75 (88) 99 1820 22:30 92 17 113/71 (85) 100 61820 22:00 25 127/60 Mechanical Ventilator 30 07/29/19 22:00 97 25 127/64 (85) 100 618/20 21:45 97 25 124/76 (92) 100 6/18/20 21:45 25 124/76 Mechanical Ventilator 30 07/29/19 21:30 21 113/63 Mechanical Ventilator 30 20 21:30 97 21 113/63 (80) 100 6/18/20 21:15 97 27 107/71 (83) 100 6/18/20 21:00 97 25 97/72 (80) 100 61820 21:00 25 97/72 Mechanical Ventilator 30 20 20:30 98 26 114/66 (82) 99 6/18/20 20:00 30 618/20 20:00 99.0 102 26 108/71 (83) 99 618/20 20:00 26 108/71 Mechanical Ventilator 30 618/20 20:00 Mechanical Ventilator 20 19:30 107 24 122/82 (95) 100 6/18/20 19:20 108 6/18/20 19:10 105 27 100 Mechanical Ventilator 30 107 27 30 6/18/20 19:00 26 85/60 Mechanical Ventilator 30 618/20 19:00 105 26 85/60 (68) 100 6/18/20 18:28 114 26 123/77 (92) 100 1820 18:00 26 108/74 Mechanical Ventilator 30 07/29/19 18:00 119 29 108/74 (85) 100 20 17:30 108 22 133/72 (92) 99 1820 17:00 26 116/73 Mechanical Ventilator 30 07/29/19 17:00 110 26 116/73 (87) 99 20 16:30 124 26 101/69 (80) 99 07/29/19 16:00 Mechanical Ventilator 07/29/19 16:00 124 07/29/19 16:00 26 101/69 Mechanical Ventilator 30 07/29/19 16:00 125 26 141/94 (110) 100 07/29/19 16:00 30 07/29/19 15:30 120 26 136/89 (105) 100 07/29/19 15:20 119 26 30 07/29/19 15:00 26 144/87 Mechanical Ventilator 30 07/29/19 15:00 111 26 144/87 (106) 99 07/29/19 14:26 121 26 129/96 (107) 100 07/29/19 14:03 95 15 134/57 (82) 100 07/29/19 14:00 26 134/57 Mechanical Ventilator 30 07/29/19 13:00 26 138/87 Mechanical Ventilator 30 07/29/19 13:00 99 20 138/87 (104) 100 07/29/19 12:34 103 20 143/78 (99) 100 07/29/19 12:01 95 28 138/76 (96) 99 07/29/19 12:00 99.1 97 26 138/76 (96) 99 20 12:00 30 07/29/19 12:00 Mechanical Ventilator 07/29/19 12:00 26 138/76 Mechanical Ventilator 30 07/29/19 12:00 94 07/29/19 11:30 88 25 124/70 (88) 99 07/29/19 11:23 95 27 30 20 11:00 26 153/77 Mechanical Ventilator 30 07/29/19 11:00 82 23 153/77 (102) 100 Intake and Output 07/29/19 07/30/19 19:00 07:00 Intake Total 455 ml 104.25 ml Output Total 1000 ml 0 ml Balance -545 ml 104.25 ml IV Total 60 ml 14.25 ml Tube Feeding 315 ml 0 ml Other 80 ml 90 ml Output Urine Total 0 ml 0 ml Hemodialysis UF 1000 ml # Bowel Movements 2 2 Laboratory Tests 07/30/19 03:45: Random Vancomycin Level 20.6 07/30/19 08:45: Prothrombin Time 11.6H, Prothromb Time International Ratio 1.1, Activated Partial Thromboplast Time 25 No can panel today Height (Feet): 6 Height (Inches): 1.00 Weight (Pounds): 157 General Appearance: no apparent distress EENT: other - Trach and vent Cardiovascular: tachycardia Respiratory/Chest: decreased breath sounds Abdomen: soft Objective No change Mic Cole MD Jul 30, 2019 10:31
--- NOTE | 2019-07-30 10:41 | Cardiac Electrophysiology PN ---
Assessment/Plan Assessment/Plan 1. Elevated troponin. Low level and flat due to renal failure. On Aspirin. EF 60%. 2. S/P Septic shock. On Midodrine 10 tid and Abx 3. ESRD, on HD per Dr. Cole. Awaiting PermCath placement by IR 4. Resp failure due to COVID-19 positive pneumonia. On the Vent with 30% Fio2. S/P Tracheostomy 07/08/19 5. Dysphagia, S/P PEG 07/13/19 6. COPD. 7. Anemia. JHONY RN Subjective Subjective In ICU, on Vent via trach with 30% Fio2 and PEEP 5. Off pressors for 2 days . On Fentanyl 100 and Midodrine. Covid positive x 9. Now has one Covid negative and second one pending Awaiting PermCath placement by IR Objective Last 24 Hour Vital Signs Date Time Temp Pulse Resp B/P (MAP) Pulse Ox O2 Delivery O2 Flow Rate FiO2 07/30/19 10:00 94 27 133/79 (97) 100 07/30/19 09:00 90 25 125/73 (90) 100 07/30/19 08:00 91 07/30/19 08:00 Mechanical Ventilator 07/30/19 08:00 30 07/30/19 08:00 99.2 90 26 117/73 (88) 100 07/30/19 07:10 87 26 100 Mechanical Ventilator 30 89 26 30 07/30/19 07:00 92 23 139/73 (95) 100 07/30/19 06:30 94 26 07/30/19 06:30 94 26 126/73 (90) 100 07/30/19 06:00 96 26 116/70 (85) 100 07/30/19 05:30 100 25 117/74 (88) 100 07/30/19 05:15 99 26 117/75 (89) 100 07/30/19 05:00 100 27 142/78 (99) 100 07/30/19 04:00 30 07/30/19 04:00 99.4 103 19 114/74 (87) 99 07/30/19 04:00 Mechanical Ventilator 07/30/19 03:30 105 24 117/70 (86) 99 07/30/19 03:21 105 07/30/19 03:05 107 26 100 Mechanical Ventilator 30 106 26 30 07/30/19 03:00 108 26 116/65 (82) 100 6 02:30 118 19 120/70 (87) 100 6 02:00 118 24 142/100 (114) 99 07/30/19 01:00 121 19 154/85 (108) 99 620 00:30 107 15 159/88 (111) 99 07/30/19 00:00 99.0 100 15 134/81 (98) 99 07/30/19 00:00 30 07/30/19 00:00 Mechanical Ventilator 07/30/19 00:00 100 6 23:30 96 23 135/83 (100) 99 07/29/19 23:04 90 26 100 Mechanical Ventilator 30 91 26 30 07/29/19 23:00 91 24 113/75 (88) 99 07/29/19 22:30 92 17 113/71 (85) 100 07/29/19 22:00 25 127/60 Mechanical Ventilator 30 07/29/19 22:00 97 25 127/64 (85) 100 20 21:45 97 25 124/76 (92) 100 61820 21:45 25 124/76 Mechanical Ventilator 30 07/29/19 21:30 21 113/63 Mechanical Ventilator 30 07/29/19 21:30 97 21 113/63 (80) 100 07/29/19 21:15 97 27 107/71 (83) 100 20 21:00 97 25 97/72 (80) 100 1820 21:00 25 97/72 Mechanical Ventilator 30 07/29/19 20:30 98 26 114/66 (82) 99 1820 20:00 30 620 20:00 99.0 102 26 108/71 (83) 99 1820 20:00 26 108/71 Mechanical Ventilator 30 20 20:00 Mechanical Ventilator 07/29/19 19:30 107 24 122/82 (95) 100 620 19:20 108 6/18/20 19:10 105 27 100 Mechanical Ventilator 30 107 27 30 618/20 19:00 26 85/60 Mechanical Ventilator 30 618/20 19:00 105 26 85/60 (68) 100 618/20 18:28 114 26 123/77 (92) 100 6/18/20 18:00 26 108/74 Mechanical Ventilator 30 07/29/19 18:00 119 29 108/74 (85) 100 1820 17:30 108 22 133/72 (92) 99 1820 17:00 26 116/73 Mechanical Ventilator 30 20 17:00 110 26 116/73 (87) 99 1820 16:30 124 26 101/69 (80) 99 20 16:00 Mechanical Ventilator 07/29/19 16:00 124 1820 16:00 26 101/69 Mechanical Ventilator 30 07/29/19 16:00 125 26 141/94 (110) 100 07/29/19 16:00 30 07/29/19 15:30 120 26 136/89 (105) 100 07/29/19 15:20 119 26 30 07/29/19 15:00 26 144/87 Mechanical Ventilator 30 07/29/19 15:00 111 26 144/87 (106) 99 07/29/19 14:26 121 26 129/96 (107) 100 07/29/19 14:03 95 15 134/57 (82) 100 07/29/19 14:00 26 134/57 Mechanical Ventilator 30 07/29/19 13:00 26 138/87 Mechanical Ventilator 30 07/29/19 13:00 99 20 138/87 (104) 100 07/29/19 12:34 103 20 143/78 (99) 100 07/29/19 12:01 95 28 138/76 (96) 99 07/29/19 12:00 99.1 97 26 138/76 (96) 99 07/29/19 12:00 30 20 12:00 Mechanical Ventilator 07/29/19 12:00 26 138/76 Mechanical Ventilator 30 07/29/19 12:00 94 07/29/19 11:30 88 25 124/70 (88) 99 07/29/19 11:23 95 27 30 20 11:00 26 153/77 Mechanical Ventilator 30 20 11:00 82 23 153/77 (102) 100 Intake and Output 07/29/1920 19:00 07:00 Intake Total 455 ml 104.25 ml Output Total 1000 ml 0 ml Balance -545 ml 104.25 ml IV Total 60 ml 14.25 ml Tube Feeding 315 ml 0 ml Other 80 ml 90 ml Output Urine Total 0 ml 0 ml Hemodialysis UF 1000 ml # Bowel Movements 2 2 Laboratory Tests Test 07/30/19 03:45 07/30/19 08:45 Random Vancomycin Level 20.6 ug/mL Prothrombin Time 11.6 SEC (9.30-11.50) H Prothromb Time International Ratio 1.1 (0.9-1.1) Activated Partial Thromboplast Time 25 SEC (23-33) Microbiology Date/Time Source Procedure Growth Status 07/27/19 18:41 Nasopharynx Coronavirus COVID-19 PCR ([facility]) - Final Complete Objective HEAD AND NECK: No JVD. Tracheostomy in place. Left IJ HD catheter now in place LUNGS: Decreased breath sounds. CARDIOVASCULAR: Regular S1 and S2. Tachycardic. ABDOMEN: Soft. PEG in place EXTREMITIES: No pitting edema. Left FV Gio Engle MD Jul 30, 2019 10:41
--- NOTE | 2019-07-30 12:30 | Infectious Diseases Prog Note ---
Assessment/Plan Assessment/Plan IMPRESSION: 1. COVID19 pneumonia Positive: 05/27, 05/31 , 06/05, 06/09 ,06/17, 06/19, 06/23, 06/27, 07/03, 07/15 Negative: 07/26 2. MRSA carrier. 3. Chronic kidney disease , end-stage renal disease. 4. COPD. 5. Hypertension. 6. Anemia. 7. Hypothyroidism. 8. Hyperlipidemia. 9. Major depression. 10. Leukocytosis 11. Hypotension 12. Hepatitis C 13. Hyperuricemia 14. Diarrhea 15. septic shock 16. Leukocytosis improving 17. Pneumonia with Staph aureus ( MRSA) 18. Bacteremia with Staph coagulase negative RECOMMENDATIONS: Continue IV Vancomycin Will f/u COVID19 test for transfer to [place] Case was D/W RN Subjective ROS Limited/Unobtainable: Yes Constitutional: Denies: fever Allergies: Coded Allergies: No Known Allergies (Unverified , 05/28/19) Objective Vital Signs Last 24 Hour Vital Signs Date Time Temp Pulse Resp B/P (MAP) Pulse Ox O2 Delivery O2 Flow Rate FiO2 07/30/19 12:00 Mechanical Ventilator 07/30/19 12:00 99.0 98 8 122/67 (85) 100 07/30/19 12:00 30 07/30/19 12:00 97 07/30/19 11:00 95 21 147/84 (105) 100 07/30/19 10:45 95 27 100 Mechanical Ventilator 30 94 28 30 07/30/19 10:00 94 27 133/79 (97) 100 07/30/19 09:00 90 25 125/73 (90) 100 07/30/19 08:00 91 07/30/19 08:00 Mechanical Ventilator 07/30/19 08:00 30 07/30/19 08:00 99.2 90 26 117/73 (88) 100 07/30/19 07:10 87 26 100 Mechanical Ventilator 30 89 26 30 07/30/19 07:00 92 23 139/73 (95) 100 07/30/19 06:30 94 26 07/30/19 06:30 94 26 126/73 (90) 100 07/30/19 06:00 96 26 116/70 (85) 100 07/30/19 05:30 100 25 117/74 (88) 100 6/19/20 05:15 99 26 117/75 (89) 100 07/30/19 05:00 100 27 142/78 (99) 100 07/30/19 04:00 30 07/30/19 04:00 99.4 103 19 114/74 (87) 99 07/30/19 04:00 Mechanical Ventilator 07/30/19 03:30 105 24 117/70 (86) 99 07/30/19 03:21 105 07/30/19 03:05 107 26 100 Mechanical Ventilator 30 106 26 30 07/30/19 03:00 108 26 116/65 (82) 100 07/30/19 02:30 118 19 120/70 (87) 100 07/30/19 02:00 118 24 142/100 (114) 99 07/30/19 01:00 121 19 154/85 (108) 99 07/30/19 00:30 107 15 159/88 (111) 99 07/30/19 00:00 99.0 100 15 134/81 (98) 99 07/30/19 00:00 30 07/30/19 00:00 Mechanical Ventilator 07/30/19 00:00 100 07/29/19 23:30 96 23 135/83 (100) 99 07/29/19 23:04 90 26 100 Mechanical Ventilator 30 91 26 30 07/29/19 23:00 91 24 113/75 (88) 99 07/29/19 22:30 92 17 113/71 (85) 100 20 22:00 25 127/60 Mechanical Ventilator 30 07/29/19 22:00 97 25 127/64 (85) 100 07/29/19 21:45 97 25 124/76 (92) 100 1820 21:45 25 124/76 Mechanical Ventilator 30 07/29/19 21:30 21 113/63 Mechanical Ventilator 30 07/29/19 21:30 97 21 113/63 (80) 100 07/29/19 21:15 97 27 107/71 (83) 100 07/29/19 21:00 97 25 97/72 (80) 100 1820 21:00 25 97/72 Mechanical Ventilator 30 20 20:30 98 26 114/66 (82) 99 1820 20:00 30 07/29/19 20:00 99.0 102 26 108/71 (83) 99 18/20 20:00 26 108/71 Mechanical Ventilator 30 20 20:00 Mechanical Ventilator 20 19:30 107 24 122/82 (95) 100 20 19:20 108 61820 19:10 105 27 100 Mechanical Ventilator 30 107 27 30 620 19:00 26 85/60 Mechanical Ventilator 30 20 19:00 105 26 85/60 (68) 100 20 18:28 114 26 123/77 (92) 100 1820 18:00 26 108/74 Mechanical Ventilator 30 07/29/19 18:00 119 29 108/74 (85) 100 1820 17:30 108 22 133/72 (92) 99 20 17:00 26 116/73 Mechanical Ventilator 30 07/29/19 17:00 110 26 116/73 (87) 99 20 16:30 124 26 101/69 (80) 99 07/29/19 16:00 Mechanical Ventilator 07/29/19 16:00 124 07/29/19 16:00 26 101/69 Mechanical Ventilator 30 07/29/19 16:00 125 26 141/94 (110) 100 20 16:00 30 07/29/19 15:30 120 26 136/89 (105) 100 07/29/19 15:20 119 26 30 20 15:00 26 144/87 Mechanical Ventilator 30 07/29/19 15:00 111 26 144/87 (106) 99 07/29/19 14:26 121 26 129/96 (107) 100 07/29/19 14:03 95 15 134/57 (82) 100 1820 14:00 26 134/57 Mechanical Ventilator 30 20 13:00 26 138/87 Mechanical Ventilator 30 20 13:00 99 20 138/87 (104) 100 20 12:34 103 20 143/78 (99) 100 Height (Feet): 6 Height (Inches): 1.00 Weight (Pounds): 157 General Appearance: no acute distress HEENT: mucous membranes moist, status post trach Respiratory/Chest: other - on ventilator Cardiovascular: normal rate, other - left IJ HD line Abdomen: soft, non tender, other - GT feeding Extremities: no edema Neurologic/Psychiatric: disoriented Microbiology Date/Time Source Procedure Growth Status 07/27/19 18:41 Nasopharynx Coronavirus COVID-19 PCR ([facility]) - Final Complete Laboratory Tests Test 07/30/19 03:45 07/30/19 08:45 Random Vancomycin Level 20.6 ug/mL Prothrombin Time 11.6 SEC (9.30-11.50) H Prothromb Time International Ratio 1.1 (0.9-1.1) Activated Partial Thromboplast Time 25 SEC (23-33) Current Medications Medications (Trade) Dose Ordered Sig/Anthony Route PRN Reason Start Time Stop Time Status Last Admin Dose Admin Acetaminophen (Tylenol) 650 mg Q4H PRN NG For Pain 07/11/19 08:00 08/10/19 07:59 07/28/19 08:09 Albuterol Sulfate (Proventil MDI) 2 puff Q4HRT INH 06/06/19 23:00 08/30/19 18:59 07/30/19 11:00 Chlorhexidine Gluconate (Michelle-Hex 2%) 1 applic DAILY@2000 TOPIC 06/07/19 20:00 09/05/19 19:59 07/29/19 19:23 Dextrose (Dextrose 50%) 25 ml Q30M PRN IV Hypoglycemia 06/20/19 19:30 09/18/19 19:29 Dextrose (Dextrose 50%) 50 ml Q30M PRN IV Hypoglycemia 06/20/19 19:30 09/18/19 19:29 Dopamine HCl/ Dextrose 250 ml @ 0 mls/hr Q24H PRN IV For hypotension 06/13/19 08:15 09/11/19 08:14 07/17/19 08:46 Enoxaparin Sodium (Lovenox) 30 mg DAILY SUBQ 06/07/19 09:00 08/27/19 08:59 07/29/19 09:29 Epoetin Aftab (Epoetin Aftab(ESRD on dialysis)) 10,000 unit FRI-FRI-FRI SUBQ 06/07/19 21:00 08/31/19 20:59 07/28/19 21:17 Fentanyl Citrate 250 ml @ 0 mls/hr Q24H IV 07/19/19 14:06 10/17/19 14:05 07/28/19 21:16 Haloperidol Lactate 5 mg/ Dextrose 56 ml @ 224 mls/hr Q6H PRN IVPB Agitation 07/11/19 15:00 08/25/19 14:59 07/15/19 02:36 Hydralazine HCl (Apresoline) 10 mg Q4H PRN IV Blood pressure over 160 systol 06/07/19 10:15 09/05/19 10:14 Insulin Aspart (NovoLOG) EVERY 6 HOURS SUBQ 06/21/19 00:00 09/19/19 00:00 07/29/19 17:32 Metoclopramide HCl (Reglan) 5 mg Q8HR IVP 07/29/19 18:00 08/28/19 17:59 07/30/19 05:29 Midodrine (Pro-Amatine) 10 mg Q8HR NG 07/29/19 14:00 10/15/19 10:29 07/30/19 05:29 Norepinephrine Bitartrate 8 mg/ Sodium Chloride 250 ml @ 0 mls/hr Q24H IV 07/23/19 16:15 08/22/19 16:14 07/24/19 17:41 Pantoprazole (Protonix) 40 mg DAILY IVP 07/27/19 09:00 08/26/19 08:59 07/30/19 08:16 Vancomycin HCl ([facility] pharmacy to dose) 1 ea DAILY PRN MISC Per rx protocol 07/20/19 10:45 08/19/19 10:44 Ted Leyva MD Jul 30, 2019 12:30
[2019-07-30] MEDS ORDERED: Heparin1,000 units/500ml Premix(Conc:2 units/ml) INJ PRN (13:29)
[2019-07-30] MEDS ORDERED: Lidocaine 1% Plain 30 ml INJ PRN (13:29)
--- NOTE | 2019-07-30 13:41 | General Progress Note ---
Assessment/Plan Status: progressing, unchanged, deteriorating Assessment/Plan: 1. Diabetes. 2. Hypertension. 3. Coronary artery disease. 4. COPD. 5. Psychiatric disorder with schizophrenia. 6. History of hepatitis C. 7. HLP. 8. Chronic kidney disease, now with acute renal failure. 9. Anemia. 10. Hypothyroidism. 11. Spinal stenosis. 12. Constipation. 13. GERD. 14. COVID positive HD per nephrology fu labs icu care s/p PEG GTF was hold due to vomiting last night. will resume post perma cath placement monitor for residuals Subjective ROS Limited/Unobtainable: No Allergies: Coded Allergies: No Known Allergies (Unverified , 05/28/19) Objective Last 24 Hour Vital Signs Date Time Temp Pulse Resp B/P (MAP) Pulse Ox O2 Delivery O2 Flow Rate FiO2 07/30/19 13:00 113 27 152/93 (112) 100 07/30/19 12:00 Mechanical Ventilator 07/30/19 12:00 99.0 98 8 122/67 (85) 100 07/30/19 12:00 30 07/30/19 12:00 97 07/30/19 11:00 95 21 147/84 (105) 100 07/30/19 10:45 95 27 100 Mechanical Ventilator 30 94 28 30 07/30/19 10:00 94 27 133/79 (97) 100 07/30/19 09:00 90 25 125/73 (90) 100 07/30/19 08:00 91 07/30/19 08:00 Mechanical Ventilator 07/30/19 08:00 30 07/30/19 08:00 99.2 90 26 117/73 (88) 100 07/30/19 07:10 87 26 100 Mechanical Ventilator 30 89 26 30 07/30/19 07:00 92 23 139/73 (95) 100 07/30/19 06:30 94 26 07/30/19 06:30 94 26 126/73 (90) 100 07/30/19 06:00 96 26 116/70 (85) 100 07/30/19 05:30 100 25 117/74 (88) 100 07/30/19 05:15 99 26 117/75 (89) 100 07/30/19 05:00 100 27 142/78 (99) 100 07/30/19 04:00 30 07/30/19 04:00 99.4 103 19 114/74 (87) 99 07/30/19 04:00 Mechanical Ventilator 07/30/19 03:30 105 24 117/70 (86) 99 07/30/19 03:21 105 07/30/19 03:05 107 26 100 Mechanical Ventilator 30 106 26 30 07/30/19 03:00 108 26 116/65 (82) 100 07/30/19 02:30 118 19 120/70 (87) 100 07/30/19 02:00 118 24 142/100 (114) 99 07/30/19 01:00 121 19 154/85 (108) 99 07/30/19 00:30 107 15 159/88 (111) 99 07/30/19 00:00 99.0 100 15 134/81 (98) 99 07/30/19 00:00 30 07/30/19 00:00 Mechanical Ventilator 07/30/19 00:00 100 07/29/19 23:30 96 23 135/83 (100) 99 07/29/19 23:04 90 26 100 Mechanical Ventilator 30 91 26 30 07/29/19 23:00 91 24 113/75 (88) 99 07/29/19 22:30 92 17 113/71 (85) 100 1820 22:00 25 127/60 Mechanical Ventilator 30 07/29/19 22:00 97 25 127/64 (85) 100 07/29/19 21:45 97 25 124/76 (92) 100 20 21:45 25 124/76 Mechanical Ventilator 30 07/29/19 21:30 21 113/63 Mechanical Ventilator 30 07/29/19 21:30 97 21 113/63 (80) 100 20 21:15 97 27 107/71 (83) 100 07/29/19 21:00 97 25 97/72 (80) 100 20 21:00 25 97/72 Mechanical Ventilator 30 07/29/19 20:30 98 26 114/66 (82) 99 1820 20:00 30 20 20:00 99.0 102 26 108/71 (83) 99 1820 20:00 26 108/71 Mechanical Ventilator 30 20 20:00 Mechanical Ventilator 07/29/19 19:30 107 24 122/82 (95) 100 07/29/19 19:20 108 07/29/19 19:10 105 27 100 Mechanical Ventilator 30 107 27 30 07/29/19 19:00 26 85/60 Mechanical Ventilator 30 07/29/19 19:00 105 26 85/60 (68) 100 07/29/19 18:28 114 26 123/77 (92) 100 07/29/19 18:00 26 108/74 Mechanical Ventilator 30 07/29/19 18:00 119 29 108/74 (85) 100 07/29/19 17:30 108 22 133/72 (92) 99 07/29/19 17:00 26 116/73 Mechanical Ventilator 30 07/29/19 17:00 110 26 116/73 (87) 99 07/29/19 16:30 124 26 101/69 (80) 99 07/29/19 16:00 Mechanical Ventilator 07/29/19 16:00 124 07/29/19 16:00 26 101/69 Mechanical Ventilator 30 07/29/19 16:00 125 26 141/94 (110) 100 07/29/19 16:00 30 07/29/19 15:30 120 26 136/89 (105) 100 07/29/19 15:20 119 26 30 07/29/19 15:00 26 144/87 Mechanical Ventilator 30 07/29/19 15:00 111 26 144/87 (106) 99 07/29/19 14:26 121 26 129/96 (107) 100 07/29/19 14:03 95 15 134/57 (82) 100 07/29/19 14:00 26 134/57 Mechanical Ventilator 30 Intake and Output 07/29/19 07/30/19 19:00 07:00 Intake Total 455 ml 104.25 ml Output Total 1000 ml 0 ml Balance -545 ml 104.25 ml IV Total 60 ml 14.25 ml Tube Feeding 315 ml 0 ml Other 80 ml 90 ml Output Urine Total 0 ml 0 ml Hemodialysis UF 1000 ml # Bowel Movements 2 2 Laboratory Tests 07/30/19 03:45: Random Vancomycin Level 20.6 07/30/19 08:45: Prothrombin Time 11.6H, Prothromb Time International Ratio 1.1, Activated Partial Thromboplast Time 25 Height (Feet): 6 Height (Inches): 1.00 Weight (Pounds): 157 General Appearance: no apparent distress EENT: normal ENT inspection Neck: supple Cardiovascular: normal rate Respiratory/Chest: decreased breath sounds Abdomen: normal bowel sounds, non tender, soft Extremities: non-tender Marito Ramires MD Jul 30, 2019 13:41
[2019-07-30] MEDS: fentaNYL 2500mcg/NS 250ml 250 ML IV SCH (13:47)
--- NOTE | 2019-07-30 14:48 | Surgery Progress Note ---
Surgery Progress Note Subjective Procedure Performed Right femoral temporary hemodialysis catheter removal Additional Comments planned tunnel cath placement today labs noted exam stable Objective Last 24 Hour Vital Signs Date Time Temp Pulse Resp B/P (MAP) Pulse Ox O2 Delivery O2 Flow Rate FiO2 07/30/19 13:00 113 27 152/93 (112) 100 07/30/19 12:00 Mechanical Ventilator 07/30/19 12:00 99.0 98 8 122/67 (85) 100 07/30/19 12:00 30 07/30/19 12:00 97 07/30/19 11:00 95 21 147/84 (105) 100 07/30/19 10:45 95 27 100 Mechanical Ventilator 30 94 28 30 07/30/19 10:00 94 27 133/79 (97) 100 07/30/19 09:00 90 25 125/73 (90) 100 07/30/19 08:00 91 07/30/19 08:00 Mechanical Ventilator 07/30/19 08:00 30 07/30/19 08:00 99.2 90 26 117/73 (88) 100 07/30/19 07:10 87 26 100 Mechanical Ventilator 30 89 26 30 07/30/19 07:00 92 23 139/73 (95) 100 07/30/19 06:30 94 26 07/30/19 06:30 94 26 126/73 (90) 100 07/30/19 06:00 96 26 116/70 (85) 100 07/30/19 05:30 100 25 117/74 (88) 100 07/30/19 05:15 99 26 117/75 (89) 100 07/30/19 05:00 100 27 142/78 (99) 100 07/30/19 04:00 30 07/30/19 04:00 99.4 103 19 114/74 (87) 99 07/30/19 04:00 Mechanical Ventilator 07/30/19 03:30 105 24 117/70 (86) 99 07/30/19 03:21 105 07/30/19 03:05 107 26 100 Mechanical Ventilator 30 106 26 30 07/30/19 03:00 108 26 116/65 (82) 100 07/30/19 02:30 118 19 120/70 (87) 100 07/30/19 02:00 118 24 142/100 (114) 99 07/30/19 01:00 121 19 154/85 (108) 99 620 00:30 107 15 159/88 (111) 99 620 00:00 99.0 100 15 134/81 (98) 99 620 00:00 30 620 00:00 Mechanical Ventilator 620 00:00 100 61820 23:30 96 23 135/83 (100) 99 61820 23:04 90 26 100 Mechanical Ventilator 30 91 26 30 61820 23:00 91 24 113/75 (88) 99 6/18/20 22:30 92 17 113/71 (85) 100 6/18/20 22:00 25 127/60 Mechanical Ventilator 30 20 22:00 97 25 127/64 (85) 100 61820 21:45 97 25 124/76 (92) 100 61820 21:45 25 124/76 Mechanical Ventilator 30 20 21:30 21 113/63 Mechanical Ventilator 30 20 21:30 97 21 113/63 (80) 100 61820 21:15 97 27 107/71 (83) 100 61820 21:00 97 25 97/72 (80) 100 618/20 21:00 25 97/72 Mechanical Ventilator 30 20 20:30 98 26 114/66 (82) 99 618/20 20:00 30 618/20 20:00 99.0 102 26 108/71 (83) 99 618/20 20:00 26 108/71 Mechanical Ventilator 30 20 20:00 Mechanical Ventilator 20 19:30 107 24 122/82 (95) 100 6/18/20 19:20 108 6/18/20 19:10 105 27 100 Mechanical Ventilator 30 107 27 30 6/18/20 19:00 26 85/60 Mechanical Ventilator 30 618/20 19:00 105 26 85/60 (68) 100 6/18/20 18:28 114 26 123/77 (92) 100 6/18/20 18:00 26 108/74 Mechanical Ventilator 30 6/18/20 18:00 119 29 108/74 (85) 100 6/18/20 17:30 108 22 133/72 (92) 99 6/18/20 17:00 26 116/73 Mechanical Ventilator 30 07/29/19 17:00 110 26 116/73 (87) 99 07/29/19 16:30 124 26 101/69 (80) 99 07/29/19 16:00 Mechanical Ventilator 07/29/19 16:00 124 07/29/19 16:00 26 101/69 Mechanical Ventilator 30 07/29/19 16:00 125 26 141/94 (110) 100 07/29/19 16:00 30 07/29/19 15:30 120 26 136/89 (105) 100 07/29/19 15:20 119 26 30 07/29/19 15:00 26 144/87 Mechanical Ventilator 30 07/29/19 15:00 111 26 144/87 (106) 99 I&O Intake and Output 07/29/19 07/30/19 19:00 07:00 Intake Total 455 ml 104.25 ml Output Total 1000 ml 0 ml Balance -545 ml 104.25 ml IV Total 60 ml 14.25 ml Tube Feeding 315 ml 0 ml Other 80 ml 90 ml Output Urine Total 0 ml 0 ml Hemodialysis UF 1000 ml # Bowel Movements 2 2 Dressing: other Wound: other Drains: other Cardiovascular: RSR Respiratory: decreased breath sounds Abdomen: soft, non-tender, present bowel sounds Extremities: no cyanosis Laboratory Tests Test 07/30/19 03:45 07/30/19 08:45 Random Vancomycin Level 20.6 ug/mL Prothrombin Time 11.6 SEC (9.30-11.50) H Prothromb Time International Ratio 1.1 (0.9-1.1) Activated Partial Thromboplast Time 25 SEC (23-33) Plan Problems: (1) Suspected COVID-19 virus infection (2) HTN (hypertension) (3) CASSANDRA (acute kidney injury) Assessment & Plan: Needs urgent HD needs access patient okay and consented see note will follow with recs new line placed discussed with team and nephrology HD line functional when checked has TPA now please use appropriately Cathflo used again this flow during dialysis on 430 was low. Will monitor may need line change 5/4 plan for HD as per renal may need to take fluid off with HD edema anasarca dressings saturated and changed will monitor cont with HD IJ left line placed for HD given extent of prior line in place. leukocytosis blood cx negative may need to change out line new line okay HD going well Continue HD as tolerated May need pressors for HD as needed (4) Anemia in chronic kidney disease (CKD) (5) Anemia (6) Renal failure (7) Suspected COVID-19 virus infection Assessment & Plan: Pt deconditioned and despite all skin preventions Pt noted to have developed several pressure injuries. . Stable dry eschar noted to clefts of R and L ears. No erythema noted . DTPI noted to L trochanter. Base of injury is maroon in colour with marginal erythema along borders. Partially opened DTPI Sacrum, R and L Buttocks. Base of wound is maroon with two small open wounds L sacrum and L buttocks. Pt has an APM/MOMO Mattress overlay and is being positioned with pillows as per tolerance and within protocols. worsening despite medical efforts will cont to provide therapy Tx.Plan: Apply Cavilon Skin Barrier to both ears Daily and prn. Apply Moisture Barrier Paste to Sacrum,R and L Buttocks. Cover with Optifoam drsgs. Change every 3 days and PRN. Apply Cavilon Skin Barrier to R and L trochanter. Cover each site with Optifoam drsgs.Change every 7 days and PRN. Apply Cavilon Skin Barrier to both heels. Cover each heel with Optifoam drsg. Change every 7 days and prn. Off-load heels with pillow. Reposition at least every 2hours or as tolerated. APM/MOMO Mattress overlay. (8) COVID-19 Assessment & Plan: COVID + c diff negative febrile leukocytosis renal insufficiency see above cont resp care Rx as per ID worsening on vent support now cxr noted on pressors prognosis guarded repeat covid ++ weaning vent and pressors off slowly showing improvement slowly recovering will need trach as unable to wean vent safely [facility] obtained s/p trach pending peg worsening on levo max (9) Sepsis Assessment & Plan: worsening leukocytosis febrile on pressors discussed with ID. lines evaluated and clean. he is septic on pressors and needs central access in difficult venous access patient blood cultures negative will monitor line change tomorrow Yaniv Mast Jul 30, 2019 14:48
--- NOTE | 2019-07-30 16:45 | General Progress Note ---
Assessment/Plan Problem List: (1) HTN (hypertension) ICD Codes: I10 - Essential (primary) hypertension SNOMED: 55998378 (2) CASSANDRA (acute kidney injury) ICD Codes: N17.9 - Acute kidney failure, unspecified SNOMED: 1174241, 37979853 (3) Anemia in chronic kidney disease (CKD) ICD Codes: N18.9 - Chronic kidney disease, unspecified; D63.1 - Anemia in chronic kidney disease SNOMED: 525540467 (4) Renal failure ICD Codes: N19 - Unspecified kidney failure SNOMED: 55118709 (5) Respiratory failure requiring intubation ICD Codes: J96.90 - Respiratory failure, unspecified, unspecified whether with hypoxia or hypercapnia; A41.89 - Other specified sepsis SNOMED: 689726035, 615860839 (6) Pneumonia due to COVID-19 virus ICD Codes: U07.1 - COVID-19; J12.89 - Other viral pneumonia SNOMED: 258325379, 375745874 (7) Sepsis due to severe acute respiratory syndrome coronavirus 2 (SARS-CoV-2) ICD Codes: U07.1 - COVID-19; A41.89 - Other specified sepsis SNOMED: 149382308, 444202269 Status: progressing, unchanged, deteriorating Assessment/Plan: permacath per renal check lytes afebrile trach/peg repeat covid is negative s/p septic shock s/p covid pna Subjective ROS Limited/Unobtainable: Yes Allergies: Coded Allergies: No Known Allergies (Unverified , 05/28/19) Objective Last 24 Hour Vital Signs Date Time Temp Pulse Resp B/P (MAP) Pulse Ox O2 Delivery O2 Flow Rate FiO2 07/30/19 16:15 137/78 07/30/19 16:00 98.9 115 0 106/70 (82) 99 07/30/19 16:00 30 07/30/19 16:00 Mechanical Ventilator 07/30/19 16:00 115 07/30/19 15:00 128 18 122/81 (95) 99 07/30/19 14:35 130 132/89 (103) 100 07/30/19 14:30 131 25 123/90 (101) 100 07/30/19 14:25 133 29 128/86 (100) 99 07/30/19 14:20 133 33 134/94 (107) 98 07/30/19 14:15 134 32 158/99 (118) 100 07/30/19 14:10 125 124/80 (95) 100 07/30/19 14:05 130 23 142/94 (110) 100 07/30/19 14:00 130 33 128/82 (97) 99 07/30/19 13:00 113 27 152/93 (112) 100 07/30/19 12:00 Mechanical Ventilator 07/30/19 12:00 99.0 98 8 122/67 (85) 100 07/30/19 12:00 30 07/30/19 12:00 97 07/30/19 11:00 95 21 147/84 (105) 100 07/30/19 10:45 95 27 100 Mechanical Ventilator 30 94 28 30 07/30/19 10:00 94 27 133/79 (97) 100 07/30/19 09:00 90 25 125/73 (90) 100 07/30/19 08:00 91 07/30/19 08:00 Mechanical Ventilator 07/30/19 08:00 30 07/30/19 08:00 99.2 90 26 117/73 (88) 100 07/30/19 07:10 87 26 100 Mechanical Ventilator 30 89 26 30 07/30/19 07:00 92 23 139/73 (95) 100 07/30/19 06:30 94 26 07/30/19 06:30 94 26 126/73 (90) 100 07/30/19 06:00 96 26 116/70 (85) 100 07/30/19 05:30 100 25 117/74 (88) 100 07/30/19 05:15 99 26 117/75 (89) 100 07/30/19 05:00 100 27 142/78 (99) 100 07/30/19 04:00 30 07/30/19 04:00 99.4 103 19 114/74 (87) 99 07/30/19 04:00 Mechanical Ventilator 07/30/19 03:30 105 24 117/70 (86) 99 07/30/19 03:21 105 07/30/19 03:05 107 26 100 Mechanical Ventilator 30 106 26 30 07/30/19 03:00 108 26 116/65 (82) 100 07/30/19 02:30 118 19 120/70 (87) 100 07/2920 02:00 118 24 142/100 (114) 99 61920 01:00 121 19 154/85 (108) 99 620 00:30 107 15 159/88 (111) 99 6/20 00:00 99.0 100 15 134/81 (98) 99 620 00:00 30 61920 00:00 Mechanical Ventilator 07/30/19 00:00 100 61820 23:30 96 23 135/83 (100) 99 61820 23:04 90 26 100 Mechanical Ventilator 30 91 26 30 618/20 23:00 91 24 113/75 (88) 99 61820 22:30 92 17 113/71 (85) 100 61820 22:00 25 127/60 Mechanical Ventilator 30 20 22:00 97 25 127/64 (85) 100 61820 21:45 97 25 124/76 (92) 100 61820 21:45 25 124/76 Mechanical Ventilator 30 20 21:30 21 113/63 Mechanical Ventilator 30 20 21:30 97 21 113/63 (80) 100 61820 21:15 97 27 107/71 (83) 100 61820 21:00 97 25 97/72 (80) 100 618/20 21:00 25 97/72 Mechanical Ventilator 30 1820 20:30 98 26 114/66 (82) 99 618/20 20:00 30 61820 20:00 99.0 102 26 108/71 (83) 99 618/20 20:00 26 108/71 Mechanical Ventilator 30 18/20 20:00 Mechanical Ventilator 1820 19:30 107 24 122/82 (95) 100 618/20 19:20 108 6/18/20 19:10 105 27 100 Mechanical Ventilator 30 107 27 30 6/18/20 19:00 26 85/60 Mechanical Ventilator 30 6/18/20 19:00 105 26 85/60 (68) 100 6/18/20 18:28 114 26 123/77 (92) 100 6/18/20 18:00 26 108/74 Mechanical Ventilator 30 618/20 18:00 119 29 108/74 (85) 100 07/29/19 17:30 108 22 133/72 (92) 99 07/29/19 17:00 26 116/73 Mechanical Ventilator 30 07/29/19 17:00 110 26 116/73 (87) 99 Intake and Output 07/29/19 07/30/19 19:00 07:00 Intake Total 455 ml 104.25 ml Output Total 1000 ml 0 ml Balance -545 ml 104.25 ml IV Total 60 ml 14.25 ml Tube Feeding 315 ml 0 ml Other 80 ml 90 ml Output Urine Total 0 ml 0 ml Hemodialysis UF 1000 ml # Bowel Movements 2 2 Laboratory Tests 07/30/19 03:45: Random Vancomycin Level 20.6 07/30/19 08:45: Prothrombin Time 11.6H, Prothromb Time International Ratio 1.1, Activated Partial Thromboplast Time 25 Height (Feet): 6 Height (Inches): 1.00 Weight (Pounds): 157 Karishma Mulligan MD Jul 30, 2019 16:45
--- NOTE | 2019-07-30 17:39 | Pre-Procedure Note/Attestation ---
Pre-Procedure Note/Attestation Complete Prior to Procedure Planned Procedure: not applicable Procedure Narrative: dialysis catheter placement Indications for Procedure Pre-Operative Diagnosis: ESRD Attestation consent obtained by primary team from the conservator. This consent was confirmed prior to the procedure Vinny Hinson M.D. Jul 30, 2019 17:39
--- NOTE | 2019-07-30 17:46 | Diagnostic Imaging Report ---
Indications: Needs long-term dialysis access Technique: Patient given IV Ancef . Total sterile technique, including sterile probe cover and sterile gel, sterile gloves, hand hygiene, hat, mask,, sterile gown, large sterile drape, and preparation with 2% chlorhexidine utilized. Local anesthesia with 1% lidocaine. Under real-time ultrasound guidance, puncture right internal jugular vein using 21-gauge micropuncture needle, passage 0.018 guidewire, exchange for 4 Bahraini micropuncture introducer. The guidewire was used to measure the appropriate catheter length, and was removed. The sheath was left in place. The subcutaneous tract was then anesthetized with 1% lidocaine. A chest dermatotomy was made . The tunneling device was used to pull a 14.5 [place]i 23 cm tip to cuff palindrome catheter through the subcutaneous tunnel to the neck dermatotomy. A guidewire was passed through the neck introducer into the inferior vena cava, and serial dilators were passed over it, followed by the introduction of a 14.5 [place]i AirGuard peel-away sheath. The catheter was then introduced into the sheath, the peel-away sheath was removed. Digital radiograph documents satisfactory catheter tip position in the high right atrium, no kinking at the insertion site. Both catheter ports aspirated and flushed. Catheter was fixed to the skin. Patient tolerated procedure well without immediate complication. Total fluoroscopy time 39.7 seconds. Total fluoroscopy dose 5.03 mGy. Total number of images obtained: 3. Total procedure time 15 minutes. Comparison: None. Findings: Completion radiograph documents satisfactory position and course of the catheter, catheter tip at the Cavoatrial junction. Impression: Successful placement of right transjugular tunneled dialysis catheter, as described above
[2019-07-30] MEDS: Dyna-Hex 2% Top Sol 2oz TOPIC SCH (19:34)
[2019-07-30] MEDS: Epoetin Alfa-EPBX(ESRD on dialysis)10,000 unit/ml vial SUBQ SCH (20:50)
[2019-07-30] MEDS: Haloperidol Lactate 5 MG in D5W 55 ML IVPB PRN (23:26)
[2019-07-31] VITALS (32 sets, daily range): BP systolic 85–150; BP diastolic 49–108
[2019-07-31] MEDS: Albuterol 90mcg Inhaler 8gm INH SCH ×7 (03:31→23:00)
[2019-07-31 04:47] LABS: BASOPHILS % (AUTO) 0.8 % (0.0-2.0); EOSINOPHILS % (AUTO) 1.2 % (0.0-3.0); HEMATOCRIT 31.4 % (42.0-52.0); HEMOGLOBIN 9.4 G/DL (14.2-18.0); LYMPHOCYTES % (AUTO) 8.6 % (20.0-45.0); MEAN CORPUSCULAR VOLUME 96 FL (80-99); MONOCYTES % (AUTO) 5.4 % (1.0-10.0); NEUTROPHILS % (AUTO) 84.1 % (45.0-75.0); PLATELET COUNT 447 K/UL (150-450); RED BLOOD COUNT 3.28 M/UL (4.70-6.10); RED CELL DISTRIBUTION WIDTH 17.9 % (11.6-14.8); WHITE BLOOD COUNT 16.5 K/UL (4.8-10.8)
[2019-07-31 05:27] LABS: ALANINE AMINOTRANSFERASE 8 U/L (12-78); ALBUMIN 2.7 G/DL (3.4-5.0); ALBUMIN/GLOBULIN RATIO 0.5 (1.0-2.7); ALKALINE PHOSPHATASE 119 U/L (46-116); ANION GAP 15 mmol/L (5-15); ASPARTATE AMINO TRANSFERASE 19 U/L (15-37); BILIRUBIN,TOTAL 0.4 MG/DL (0.2-1.0); BLOOD UREA NITROGEN 65 mg/dL (7-18); CALCIUM 9.2 MG/DL (8.5-10.1); CARBON DIOXIDE 26 MMOL/L (21-32); CHLORIDE 101 MMOL/L (98-107); CREATININE 9.2 MG/DL (0.55-1.30); PHOSPHORUS 3.2 MG/DL (2.5-4.9); POTASSIUM 3.7 MMOL/L (3.5-5.1); SODIUM 142 MMOL/L (136-145)
[2019-07-31] MEDS: Metoclopramide 10mg/2ml Inj IVP SCH ×3 (05:35→21:33)
[2019-07-31] MEDS: Midodrine 10mg tab NG SCH ×3 (05:35→21:33)
[2019-07-31] MEDS: NovoLOG Insulin Flexpen SUBQ SCH ×4 (05:54→23:42)
[2019-07-31] MEDS: Pantoprazole Inj IVP SCH (08:00)
[2019-07-31] MEDS: Enoxaparin 30mg Inj SUBQ SCH (08:01)
--- NOTE | 2019-07-31 08:57 | Pulmonolgy Critical Care Note ---
Critical Care - Asmt/Plan Assessment/Plan: Pulmonary CCM Progress Note HPI: Patient is a 68 year old man, [facility] resident, admitted c/o shortness of breath, cough, noted to have Covid 19 Pneumonia, Respiratory Failure Remains on Ventilator, CXR infiltrates stable, not tolerating weaning CKD on HD - on Mitodrine, not tolerating weaning, will need placement, repeat COVID19 test now negative, 2nd specimen pending Preserved EF FIO2 30%, P5, adequate O2 sats, remains on ACVC, s/p Tracheostomy previously, sp PEG, sp Permacath, awaiting LTAC ID following Seen earlier on 07/30/2019 Past Medical History: COPD, CKD, Hypertension, Anemia Allergies: No Known Allergies Improving Pulmonary Status on HD Physical Exam Vital Signs Noted Stable on ventilator Chronically ill appearing HEENT: moist mm, trach Chest: Occasional rhonchi, BS equal bilaterally Heart: HS1, HS2, RRR Abdomen: SNTND G tube Extremities: No edema, well perfused SIDING APPLICATOR: Non focal, sedated Impression: COVID-19 virus infection Pneumonia Respiratory failure on ventilator, wean as tolerated once off pressors CKD - on HD Hypotension on pressors previously Cardiomegaly Lymphopenia Elevated AST COPD Chronic Kidney Disease - HD H/o Hypertension Worsening anemia Plan: SP Tracheostomy / G tube Antibiotics per ID HD Pressors PRN ACVC - wean as tolerated [employer]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 Medications 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 Monitor cultures/viral studies PPX Hemodialysis per Renal Psychiatry following Laboratory Tests Noted: CXR: Hypoventilatory exam, interstitial changes, cardiomegaly, improving infiltrates Subjective ROS Limited/Unobtainable: No Constitutional: Denies: fever Respiratory: Reports: dry cough, shortness of breath Gastrointestinal/Abdominal: Reports: diarrhea, other - colace was stopped Psychiatric: Reports: other - refuses labs Allergies: Coded Allergies: No Known Allergies (Unverified , 05/28/19) All Systems: reviewed and negative except above Labs noted Critical Care - Objective Last 24 Hour Vital Signs Date Time Temp Pulse Resp B/P (MAP) Pulse Ox O2 Delivery O2 Flow Rate FiO2 07/31/19 07:54 96 26 100 Mechanical Ventilator 30 101 29 30 07/31/19 07:00 106 20 137/79 (98) 100 07/31/19 06:30 108 20 07/31/19 06:00 111 13 139/81 (100) 99 07/31/19 05:00 119 20 134/85 (101) 100 07/31/19 04:00 30 07/31/19 04:00 Mechanical Ventilator 07/31/19 04:00 99.4 117 28 133/78 (96) 100 07/31/19 03:31 118 33 99 Mechanical Ventilator 30 119 33 30 07/31/19 03:07 120 07/31/19 03:00 121 30 132/83 (99) 100 07/31/19 02:30 117 26 121/80 (94) 100 07/31/19 02:00 124 16 125/79 (94) 100 07/31/19 01:00 119 26 124/79 (94) 99 07/31/19 00:00 131 07/31/19 00:00 Mechanical Ventilator 07/31/19 00:00 99.3 131 32 118/85 (96) 100 07/31/19 00:00 30 07/30/19 23:21 134 35 100 Mechanical Ventilator 30 133 37 30 07/30/19 23:00 112 26 125/73 (90) 100 07/30/19 22:00 110 27 114/70 (85) 100 07/30/19 21:00 112 31 117/71 (86) 100 07/30/19 20:00 99.0 111 30 119/74 (89) 100 07/30/19 20:00 30 07/30/19 20:00 Mechanical Ventilator 07/30/19 19:50 116 35 100 Mechanical Ventilator 30 114 32 30 07/30/19 19:14 114 07/30/19 19:00 110 0 109/72 (84) 100 07/30/19 18:00 115 0 105/66 (79) 100 07/30/19 17:00 114 8 130/80 (97) 100 07/30/19 16:15 137/78 07/30/19 16:00 98.9 115 0 106/70 (82) 99 07/30/19 16:00 30 07/30/19 16:00 Mechanical Ventilator 07/30/19 16:00 115 07/30/19 15:59 115 29 100 Mechanical Ventilator 30 106 28 30 07/30/19 15:00 128 18 122/81 (95) 99 07/30/19 14:35 130 132/89 (103) 100 07/30/19 14:30 131 25 123/90 (101) 100 07/30/19 14:25 133 29 128/86 (100) 99 07/30/19 14:20 133 33 134/94 (107) 98 07/30/19 14:15 134 32 158/99 (118) 100 07/30/19 14:10 125 124/80 (95) 100 07/30/19 14:05 130 23 142/94 (110) 100 07/30/19 14:00 130 33 128/82 (97) 99 07/30/19 13:00 113 27 152/93 (112) 100 07/30/19 12:00 Mechanical Ventilator 07/30/19 12:00 99.0 98 8 122/67 (85) 100 07/30/19 12:00 30 07/30/19 12:00 97 07/30/19 11:00 95 21 147/84 (105) 100 07/30/19 10:45 95 27 100 Mechanical Ventilator 30 94 28 30 07/30/19 10:00 94 27 133/79 (97) 100 07/30/19 09:00 90 25 125/73 (90) 100 Accucheck: 162 Critical Care - Subjective ROS Limited/Unobtainable: No Condition: improving IV Access: central FI02: 30 Vent Support Breath Rate: 26 Vent Support Mode: AC Vent Tidal Volume: 500 Sputum Amount: Small PEEP: 5.0 PIP: 21 Tube Feeding Amount: 0 I&O: Intake and Output 07/30/19 07/31/19 19:00 07:00 Intake Total 235 ml 505 ml Output Total 0 ml 0 ml Balance 235 ml 505 ml Free Water 10 ml Tube Feeding 225 ml 405 ml Other 100 ml Output Urine Total 0 ml 0 ml # Bowel Movements 4 3 ET-Tube: 7.5 ET Position: 24 Arturo Mckeon MD Jul 31, 2019 08:57
[2019-07-31] MEDS ORDERED: NS 275ml ONE ×2 (09:34→09:40)
[2019-07-31] MEDS ORDERED: Tubing IV Secondary IV ONE (09:34)
--- NOTE | 2019-07-31 11:30 | Nephrology Progress Note ---
Assessment/Plan Problem List: (1) CASSANDRA (acute kidney injury) (2) Anemia in chronic kidney disease (CKD) (3) HTN (hypertension) (4) COVID-19 Assessment Acute renal failure most likely superimposed on chronic kidney disease Suspected COVID-19 virus infection Possible Pneumonia, lymphopenia, elevated AST Cardiomegaly, possible CHF COPD Hypertension Anemia, most likely related to chronic kidney disease Plan July 30: Patient due for dialysis today. Labs are reviewed. Remains full code. Status post trach to ventilator. Status post PEG. July 29: Patient dialyzed yesterday. Due for dialysis tomorrow. Remains in ICU. Full code. Status post trach tube to ventilator. Status post PEG. July 28: Due for dialysis today. Labs reviewed. Full code. Patient trached and vented. July 27: Last COVID test negative. COVID test will be repeated tomorrow. Will order dialysis tomorrow. Remains full code. Medication list and labs reviewed. July 26: No labs done today. Dialysis done yesterday. Will check lab tomorrow. Dialysis as needed. July 25: Lab reviewed. Dialysis today. Discussed with RN. July 24: Lab reviewed. Do dialysis tomorrow. Discussed with RN. July 23: Lab reviewed. Dialyzed yesterday. Discussed with RN. Remains full code. Next dialysis July 25. Will check labs tomorrow. July 22: Labs reviewed. Due for dialysis today. Discussed with RN. Watch borderline low blood pressure. Discussed with dialysis nurse. July 21: Today's lab reviewed. Will arrange for dialysis tomorrow. Discussed with RN. Aim to keep the blood pressure above 100 systolic. Continue per consultants. July 20: Patient was dialyzed yesterday. Could not ultrafiltrate much due to low blood pressure. Discussed with SHANIQUE Dick today. No labs drawn today. Continue per consultants. July 19: Due for dialysis today. Discussed with SHANIQUE Dick. Continue per consultants. July 18: Dialyzed July 16. Will order dialysis tomorrow July 19. Continues to be on ventilator through trach. No labs done today. Continue per consultants. July 17: Dialyzed yesterday. Stable from renal standpoint of view. Remains full code. Status post trach on vent. Status post PEG. Continue per consultants. July 16: Dialysis today. Will resume Midodrin to prevent hypotension. Patient remains full code. July 15: Dialyzed yesterday, due for dialysis tomorrow. Labs and medication list reviewed. Continue per consultants. Patient remains full code. COVID-19 detected again. July 14: Patient currently on dialysis. This is continuation of dialysis from yesterday as yesterday's dialysis was cut short due to catheter malfunction. Labs and medication reviewed. Continue per consultants. July 13: Patient currently on hemodialysis. The dialysis catheter which is a intrajugular Kamlesh has poor flow. Will try TPA. Continue per consultants. July 12: Due for PEG today. Due for dialysis tomorrow. Continue per consultants. Discussed with RN. July 11: Plan for dialysis today. Discussed with RN. Data reviewed. July 10: Plan for dialysis tomorrow July 11. Waiting for consent to proceed with PEG. Continue per consultants. Medication reviewed. Labs reviewed. Discussed with RN. July 09: Dialyzed yesterday. Labs reviewed. Medication reviewed. Next hemodialysis July 11. July 08: Patient has tracheostomy now. Connected to ventilator. Due for dialysis today. Continue per consultants. Discussed with SHANIQUE Romero. July 07: Patient is due for tracheostomy today. Patient was last dialyzed July 05. Will order dialysis for tomorrow. July 06: Patient is intubated on ventilator however the plan is to extubate today. Patient was dialysis yesterday July 05. The dialysis time was cut short due to patient's respiratory distress. Only 1 L was removed during dialysis yesterday. Today's lab reviewed. Continue per consultants. Will arrange for dialysis as needed. July 05: Patient due for dialysis today. Remains intubated. Will schedule permacath placement in a.m. blood cultures on July 04 are negative. July 04: Patient was dialyzed yesterday. Due for dialysis tomorrow. Continues to be intubated. After tomorrow's dialysis will order a permacath. July 03: Dialysis is about to be started now Continues to be intubated Will plan to remove the femoral dialysis catheter and exchanged for a new temporary catheter per ID recommendation We will check surveillance blood culture tomorrow July 02: Patient was dialyzed yesterday and due for dialysis tomorrow Stable from renal standpoint W on dialysis Continue per consultants, weaning....... etc. July 01: Dialysis today Other status unchanged June 30: Due for dialysis tomorrow Remains intubated on ventilator Labs and medication reviewed Discussed with RN Stable from renal standpoint of view June 29: Dialyzed yesterday Due for dialysis tomorrow Stable from renal standpoint to view Keeps failing weaning process June 28: Patient due for dialysis today Stable from renal standpoint to view Continue per consultants June 27: Labs reviewed Due due for dialysis June 28 Discussed with SHANIQUE Dick Continue per consultants Remains intubated on ventilator June 26 Labs reviewed Dialyzed yesterday Started on weaning today Continue to monitor renal parameters June 25: On dialysis now Potassium supplement implemented Continue per consultants Next dialysis June 27June 15: Status unchanged Dialyzed yesterday will dialyze again tomorrow Potassium supplements given Discussed with RN June 14: Due dialysis today Status: Remains intubated on ventilator June 22: Status unchanged Dialyzed yesterday and duefordialysistomorrow Serum sodium stable today June 21 Remains intubated on ventilator Due dialysis today Emphasized high sodium bath for dialysis June 20: Remains intubated on ventilator Dialyzed June 19 next dialysis June 21 Serum sodium 128, will give 250 cc 3% saline Remains full code Discussed with RN Iron panel ordered June 19: Discussed with RN. Patient due for dialysis today. Continue pulmonary support. Remains full code. June 18: Patient dialyzed yesterday June 17 Serum sodium improved but still low Arrange for dialysis tomorrow June 19 Continue per consultants June 8: Due for dialysis today Today's lab reviewed, low serum sodium noted, Emphasized on high sodium bath to dialysis nurse Discussed with SHANIQUE Yuen June 7: Dialyzed yesterday Remains intubated Labs reviewed, serum sodium 131 Plan to dialyze tomorrow June 17 with high sodium bath Discussed with SHANIQUE Yuen June 6: Due for dialysis today Labs reviewed Discussed with RN Transfuse 1 unit of packed RBCs today for low hemoglobin of 7.1 June 5: Blood pressure well maintained Receive dialysis June 13 next hemodialysis June 15June 4: Discussed with RN in ICU Patient did not receive proper dialysis yesterday due to dialysis catheter malfunction Catheter to be adjusted today and dialyzed to be resumed today Continue per consultants Positive for COVID 28 June 2: Patient now intubated on mechanical ventilation Discussed with SHANIQUE Yuen, today June 12 Patient received dialysis yesterday June 10 next hemodialysis June 12 Blood pressure better maintained Today's labs reviewed Continue per consultants Previously patient received dialysis last evening June 05, next dialysis June 07 which was incomplete due to patient's hypotension Will start on midodrine for blood pressure support. Meanwhile continue other pressors as needed Previously Patient is doing poorly, septic, white blood cells are rising, Hypotension somewhat improved We will keep n.p.o. , NG tube for medications, and change medication to IV as needed Patient remains full code Monitor vancomycin level Previously: Patient pulled out his femoral catheter yesterday June 03 which was reinserted by Dr. Mast Patient scheduled for dialysis again June 04, which again was not done due to dialysis nurse citing catheter malfunction Meanwhile continue management per ID, pulmonary , and psych. Meanwhile white blood cell count is rising. Patient blood pressure borderline low. Will check ABG Previously May 31 : I believe patient need dialysis treatment He however needs to competency assessment if can make decisions or not I will communicate with Dr. Mulligan Previously: Per pulmonary and ID advice Adjust blood pressure medication Renal diet Anemia work-up 2D echocardiogram refused Kidney ultrasound refused Jules catheter Urine studies Per orders Subjective ROS Limited/Unobtainable: Yes Objective Objective Last 24 Hour Vital Signs Date Time Temp Pulse Resp B/P (MAP) Pulse Ox O2 Delivery O2 Flow Rate FiO2 07/31/19 11:00 108 12 104/69 (81) 100 07/31/19 10:00 110 5 108/67 (81) 100 07/31/19 09:00 108 20 125/78 (94) 100 07/31/19 08:00 Mechanical Ventilator 07/31/19 08:00 99 20 150/82 (104) 100 07/31/19 08:00 30 07/31/19 08:00 97 07/31/19 07:54 96 26 100 Mechanical Ventilator 30 101 29 30 07/31/19 07:00 106 20 137/79 (98) 100 07/31/19 06:30 108 20 07/31/19 06:00 111 13 139/81 (100) 99 07/31/19 05:00 119 20 134/85 (101) 100 07/31/19 04:00 30 07/31/19 04:00 Mechanical Ventilator 07/31/19 04:00 99.4 117 28 133/78 (96) 100 07/31/19 03:31 118 33 99 Mechanical Ventilator 30 119 33 30 07/31/19 03:07 120 07/31/19 03:00 121 30 132/83 (99) 100 07/31/19 02:30 117 26 121/80 (94) 100 07/31/19 02:00 124 16 125/79 (94) 100 07/31/19 01:00 119 26 124/79 (94) 99 07/31/19 00:00 131 07/31/19 00:00 Mechanical Ventilator 07/31/19 00:00 99.3 131 32 118/85 (96) 100 07/31/19 00:00 30 07/30/19 23:21 134 35 100 Mechanical Ventilator 30 133 37 30 07/30/19 23:00 112 26 125/73 (90) 100 07/30/19 22:00 110 27 114/70 (85) 100 07/30/19 21:00 112 31 117/71 (86) 100 07/30/19 20:00 99.0 111 30 119/74 (89) 100 07/30/19 20:00 30 07/30/19 20:00 Mechanical Ventilator 07/30/19 19:50 116 35 100 Mechanical Ventilator 30 114 32 30 07/30/19 19:14 114 07/30/19 19:00 110 0 109/72 (84) 100 07/30/19 18:00 115 0 105/66 (79) 100 07/30/19 17:00 114 8 130/80 (97) 100 07/30/19 16:15 137/78 07/30/19 16:00 98.9 115 0 106/70 (82) 99 07/30/19 16:00 30 07/30/19 16:00 Mechanical Ventilator 07/30/19 16:00 115 07/30/19 15:59 115 29 100 Mechanical Ventilator 30 106 28 30 07/30/19 15:00 128 18 122/81 (95) 99 07/30/19 14:35 130 132/89 (103) 100 07/30/19 14:30 131 25 123/90 (101) 100 07/30/19 14:25 133 29 128/86 (100) 99 07/30/19 14:20 133 33 134/94 (107) 98 07/30/19 14:15 134 32 158/99 (118) 100 07/30/19 14:10 125 124/80 (95) 100 07/30/19 14:05 130 23 142/94 (110) 100 07/30/19 14:00 130 33 128/82 (97) 99 07/30/19 13:00 113 27 152/93 (112) 100 07/30/19 12:00 Mechanical Ventilator 07/30/19 12:00 99.0 98 8 122/67 (85) 100 07/30/19 12:00 30 07/30/19 12:00 97 Intake and Output 07/30/19 07/31/19 19:00 07:00 Intake Total 235 ml 505 ml Output Total 0 ml 0 ml Balance 235 ml 505 ml Free Water 10 ml Tube Feeding 225 ml 405 ml Other 100 ml Output Urine Total 0 ml 0 ml # Bowel Movements 4 3 Laboratory Tests 07/31/19 03:45: White Blood Count 16.5H, Red Blood Count 3.28L, Hemoglobin 9.4L, Hematocrit 31.4L, Mean Corpuscular Volume 96, Mean Corpuscular Hemoglobin 28.7, Mean Corpuscular Hemoglobin Concent 30.0L, Red Cell Distribution Width 17.9H, Platelet Count 447, Mean Platelet Volume 6.6, Neutrophils (%) (Auto) 84.1H, Lymphocytes (%) (Auto) 8.6L, Monocytes (%) (Auto) 5.4, Eosinophils (%) (Auto) 1.2, Basophils (%) (Auto) 0.8, Sodium Level 142, Potassium Level 3.7, Chloride Level 101, Carbon Dioxide Level 26, Anion Gap 15, Blood Urea Nitrogen 65H, Creatinine 9.2H, Estimat Glomerular Filtration Rate 5.8, Glucose Level 163H, Calcium Level 9.2, Phosphorus Level 3.2, Magnesium Level 2.8H, Total Bilirubin 0.4, Aspartate Amino Transf (AST/SGOT) 19, Alanine Aminotransferase (ALT/SGPT) 8L, Alkaline Phosphatase 119H, C-Reactive Protein, Quantitative 6.2H, Pro-B- Type Natriuretic Peptide 88959N, Total Protein 8.7H, Albumin 2.7L, Globulin 6.0 , Albumin/Globulin Ratio 0.5L Height (Feet): 6 Height (Inches): 1.00 Weight (Pounds): 156 EENT: other - Trached and vent Cardiovascular: tachycardia Respiratory/Chest: decreased breath sounds Abdomen: other - PEG Objective No change Mic Cole MD Jul 31, 2019 11:30
[2019-07-31] MEDS: fentaNYL 2500mcg/NS 250ml 250 ML IV SCH (13:45)
--- NOTE | 2019-07-31 14:21 | Cardiac Electrophysiology PN ---
Assessment/Plan Assessment/Plan 1. Elevated troponin. Low level and flat due to renal failure. On Aspirin. EF 60%. 2. S/P Septic shock. On Midodrine 10 tid and Abx 3. ESRD, on HD per Dr. Cole. S/P PermCath placement by IR 4. Resp failure due to COVID-19 positive pneumonia. On the Vent with 30% Fio2. S/P Tracheostomy 07/08/19 5. Dysphagia, S/P PEG 07/13/19 6. COPD. 7. Anemia. JHONY RN Subjective Subjective In ICU, on Vent via trach with 30% Fio2 and PEEP 5. Off pressors Covid positive x 9. Now has one Covid negative and second one pending S/P PermCath placement by IR yesterday. Getting HD Objective Last 24 Hour Vital Signs Date Time Temp Pulse Resp B/P (MAP) Pulse Ox O2 Delivery O2 Flow Rate FiO2 07/31/19 14:06 111 16 113/72 (86) 100 07/31/19 13:00 118 16 97/65 (76) 100 07/31/19 12:19 106 26 100 Mechanical Ventilator 30 106 38 30 07/31/19 12:09 108 26 124/69 (87) 100 07/31/19 12:00 Mechanical Ventilator 07/31/19 12:00 108 07/31/19 12:00 30 07/31/19 12:00 99.2 111 23 124/78 (93) 100 07/31/19 11:00 108 12 104/69 (81) 100 07/31/19 10:00 110 5 108/67 (81) 100 07/31/19 09:00 108 20 125/78 (94) 100 07/31/19 08:00 Mechanical Ventilator 07/31/19 08:00 99 20 150/82 (104) 100 07/31/19 08:00 30 07/31/19 08:00 97 07/31/19 07:54 96 26 100 Mechanical Ventilator 30 101 29 30 07/31/19 07:00 106 20 137/79 (98) 100 07/31/19 06:30 108 20 07/31/19 06:00 111 13 139/81 (100) 99 07/31/19 05:00 119 20 134/85 (101) 100 07/31/19 04:00 30 07/31/19 04:00 Mechanical Ventilator 07/31/19 04:00 99.4 117 28 133/78 (96) 100 07/31/19 03:31 118 33 99 Mechanical Ventilator 30 119 33 30 07/31/19 03:07 120 07/31/19 03:00 121 30 132/83 (99) 100 07/31/19 02:30 117 26 121/80 (94) 100 07/31/19 02:00 124 16 125/79 (94) 100 07/31/19 01:00 119 26 124/79 (94) 99 07/31/19 00:00 131 07/31/19 00:00 Mechanical Ventilator 07/31/19 00:00 99.3 131 32 118/85 (96) 100 07/31/19 00:00 30 07/30/19 23:21 134 35 100 Mechanical Ventilator 30 133 37 30 07/30/19 23:00 112 26 125/73 (90) 100 07/30/19 22:00 110 27 114/70 (85) 100 07/30/19 21:00 112 31 117/71 (86) 100 07/30/19 20:00 99.0 111 30 119/74 (89) 100 07/30/19 20:00 30 07/30/19 20:00 Mechanical Ventilator 07/30/19 19:50 116 35 100 Mechanical Ventilator 30 114 32 30 07/30/19 19:14 114 07/30/19 19:00 110 0 109/72 (84) 100 07/30/19 18:00 115 0 105/66 (79) 100 07/30/19 17:00 114 8 130/80 (97) 100 07/30/19 16:15 137/78 07/30/19 16:00 98.9 115 0 106/70 (82) 99 07/30/19 16:00 30 07/30/19 16:00 Mechanical Ventilator 07/30/19 16:00 115 07/30/19 15:59 115 29 100 Mechanical Ventilator 30 106 28 30 07/30/19 15:00 128 18 122/81 (95) 99 07/30/19 14:35 130 132/89 (103) 100 07/30/19 14:30 131 25 123/90 (101) 100 07/30/19 14:25 133 29 128/86 (100) 99 Intake and Output 07/30/19 07/31/19 19:00 07:00 Intake Total 235 ml 505 ml Output Total 0 ml 0 ml Balance 235 ml 505 ml Free Water 10 ml Tube Feeding 225 ml 405 ml Other 100 ml Output Urine Total 0 ml 0 ml # Bowel Movements 4 3 Laboratory Tests Test 07/31/19 03:45 White Blood Count 16.5 K/UL (4.8-10.8) H Red Blood Count 3.28 M/UL (4.70-6.10) L Hemoglobin 9.4 G/DL (14.2-18.0) L Hematocrit 31.4 % (42.0-52.0) L Mean Corpuscular Volume 96 FL (80-99) Mean Corpuscular Hemoglobin 28.7 PG (27.0-31.0) Mean Corpuscular Hemoglobin Concent 30.0 G/DL (32.0-36.0) L Red Cell Distribution Width 17.9 % (11.6-14.8) H Platelet Count 447 K/UL (150-450) Mean Platelet Volume 6.6 FL (6.5-10.1) Neutrophils (%) (Auto) 84.1 % (45.0-75.0) H Lymphocytes (%) (Auto) 8.6 % (20.0-45.0) L Monocytes (%) (Auto) 5.4 % (1.0-10.0) Eosinophils (%) (Auto) 1.2 % (0.0-3.0) Basophils (%) (Auto) 0.8 % (0.0-2.0) Sodium Level 142 MMOL/L (136-145) Potassium Level 3.7 MMOL/L (3.5-5.1) Chloride Level 101 MMOL/L (98-107) Carbon Dioxide Level 26 MMOL/L (21-32) Anion Gap 15 mmol/L (5-15) Blood Urea Nitrogen 65 mg/dL (7-18) H Creatinine 9.2 MG/DL (0.55-1.30) H Estimat Glomerular Filtration Rate 5.8 mL/min (>60) Glucose Level 163 MG/DL (74-106) H Calcium Level 9.2 MG/DL (8.5-10.1) Phosphorus Level 3.2 MG/DL (2.5-4.9) Magnesium Level 2.8 MG/DL (1.8-2.4) H Total Bilirubin 0.4 MG/DL (0.2-1.0) Aspartate Amino Transf (AST/SGOT) 19 U/L (15-37) Alanine Aminotransferase (ALT/SGPT) 8 U/L (12-78) L Alkaline Phosphatase 119 U/L (46-116) H C-Reactive Protein, Quantitative 6.2 mg/dL (0.00-0.90) H Pro-B-Type Natriuretic Peptide 34869 pg/mL (0-125) H Total Protein 8.7 G/DL (6.4-8.2) H Albumin 2.7 G/DL (3.4-5.0) L Globulin 6.0 g/dL Albumin/Globulin Ratio 0.5 (1.0-2.7) L Objective HEAD AND NECK: No JVD. Tracheostomy in place. Left IJ HD catheter now in place Right IJ PermCath in place LUNGS: Decreased breath sounds. CARDIOVASCULAR: Regular S1 and S2. Tachycardic. ABDOMEN: Soft. PEG in place EXTREMITIES: No pitting edema. Gio Baker MD Jul 31, 2019 14:21
--- NOTE | 2019-07-31 15:52 | General Progress Note ---
Assessment/Plan Problem List: (1) HTN (hypertension) ICD Codes: I10 - Essential (primary) hypertension SNOMED: 41786406 (2) CASSANDRA (acute kidney injury) ICD Codes: N17.9 - Acute kidney failure, unspecified SNOMED: 6374871, 24053833 (3) Anemia in chronic kidney disease (CKD) ICD Codes: N18.9 - Chronic kidney disease, unspecified; D63.1 - Anemia in chronic kidney disease SNOMED: 169022050 (4) Renal failure ICD Codes: N19 - Unspecified kidney failure SNOMED: 05590656 (5) Respiratory failure requiring intubation ICD Codes: J96.90 - Respiratory failure, unspecified, unspecified whether with hypoxia or hypercapnia; A41.89 - Other specified sepsis SNOMED: 963412237, 978367548 (6) Pneumonia due to COVID-19 virus ICD Codes: U07.1 - COVID-19; J12.89 - Other viral pneumonia SNOMED: 306804725, 437777658 (7) Sepsis due to severe acute respiratory syndrome coronavirus 2 (SARS-CoV-2) ICD Codes: U07.1 - COVID-19; A41.89 - Other specified sepsis SNOMED: 835486776, 694861786 Status: progressing, unchanged, deteriorating Assessment/Plan: permacath per renal poor prognosis needs ltac placement afebrile trach/peg s/p septic shock s/p covid pna Subjective ROS Limited/Unobtainable: Yes Allergies: Coded Allergies: No Known Allergies (Unverified , 05/28/19) Objective Last 24 Hour Vital Signs Date Time Temp Pulse Resp B/P (MAP) Pulse Ox O2 Delivery O2 Flow Rate FiO2 07/31/19 15:07 112 0 121/69 (86) 100 07/31/19 15:05 114 16 85/69 (74) 100 07/31/19 15:00 118 3 89/60 (70) 100 07/31/19 14:06 111 16 113/72 (86) 100 07/31/19 13:00 118 16 97/65 (76) 100 07/31/19 12:19 106 26 100 Mechanical Ventilator 30 106 38 30 07/31/19 12:09 108 26 124/69 (87) 100 07/31/19 12:00 Mechanical Ventilator 07/31/19 12:00 108 07/31/19 12:00 30 07/31/19 12:00 99.2 111 23 124/78 (93) 100 07/31/19 11:00 108 12 104/69 (81) 100 07/31/19 10:00 110 5 108/67 (81) 100 07/31/19 09:00 108 20 125/78 (94) 100 07/31/19 08:00 Mechanical Ventilator 07/31/19 08:00 99 20 150/82 (104) 100 07/31/19 08:00 30 07/31/19 08:00 97 07/31/19 07:54 96 26 100 Mechanical Ventilator 30 101 29 30 07/31/19 07:00 106 20 137/79 (98) 100 07/31/19 06:30 108 20 07/31/19 06:00 111 13 139/81 (100) 99 07/31/19 05:00 119 20 134/85 (101) 100 07/31/19 04:00 30 07/31/19 04:00 Mechanical Ventilator 07/31/19 04:00 99.4 117 28 133/78 (96) 100 07/31/19 03:31 118 33 99 Mechanical Ventilator 30 119 33 30 07/31/19 03:07 120 07/31/19 03:00 121 30 132/83 (99) 100 07/31/19 02:30 117 26 121/80 (94) 100 07/31/19 02:00 124 16 125/79 (94) 100 07/31/19 01:00 119 26 124/79 (94) 99 07/31/19 00:00 131 07/31/19 00:00 Mechanical Ventilator 07/31/19 00:00 99.3 131 32 118/85 (96) 100 07/31/19 00:00 30 07/30/19 23:21 134 35 100 Mechanical Ventilator 30 133 37 30 07/30/19 23:00 112 26 125/73 (90) 100 07/30/19 22:00 110 27 114/70 (85) 100 07/30/19 21:00 112 31 117/71 (86) 100 07/30/19 20:00 99.0 111 30 119/74 (89) 100 07/30/19 20:00 30 07/30/19 20:00 Mechanical Ventilator 07/30/19 19:50 116 35 100 Mechanical Ventilator 30 114 32 30 07/30/19 19:14 114 07/30/19 19:00 110 0 109/72 (84) 100 07/30/19 18:00 115 0 105/66 (79) 100 07/30/19 17:00 114 8 130/80 (97) 100 07/30/19 16:15 137/78 07/30/19 16:00 98.9 115 0 106/70 (82) 99 07/30/19 16:00 30 07/30/19 16:00 Mechanical Ventilator 07/30/19 16:00 115 07/30/19 15:59 115 29 100 Mechanical Ventilator 30 106 28 30 Intake and Output 07/30/19 07/31/19 19:00 07:00 Intake Total 235 ml 505 ml Output Total 0 ml 0 ml Balance 235 ml 505 ml Free Water 10 ml Tube Feeding 225 ml 405 ml Other 100 ml Output Urine Total 0 ml 0 ml # Bowel Movements 4 3 Laboratory Tests 07/31/19 03:45: White Blood Count 16.5H, Red Blood Count 3.28L, Hemoglobin 9.4L, Hematocrit 31.4L, Mean Corpuscular Volume 96, Mean Corpuscular Hemoglobin 28.7, Mean Corpuscular Hemoglobin Concent 30.0L, Red Cell Distribution Width 17.9H, Platelet Count 447, Mean Platelet Volume 6.6, Neutrophils (%) (Auto) 84.1H, Lymphocytes (%) (Auto) 8.6L, Monocytes (%) (Auto) 5.4, Eosinophils (%) (Auto) 1.2, Basophils (%) (Auto) 0.8, Sodium Level 142, Potassium Level 3.7, Chloride Level 101, Carbon Dioxide Level 26, Anion Gap 15, Blood Urea Nitrogen 65H, Creatinine 9.2H, Estimat Glomerular Filtration Rate 5.8, Glucose Level 163H, Calcium Level 9.2, Phosphorus Level 3.2, Magnesium Level 2.8H, Total Bilirubin 0.4, Aspartate Amino Transf (AST/SGOT) 19, Alanine Aminotransferase (ALT/SGPT) 8L, Alkaline Phosphatase 119H, C-Reactive Protein, Quantitative 6.2H, Pro-B- Type Natriuretic Peptide 32026A, Total Protein 8.7H, Albumin 2.7L, Globulin 6.0 , Albumin/Globulin Ratio 0.5L Height (Feet): 6 Height (Inches): 1.00 Weight (Pounds): 156 Karishma Mulligan MD Jul 31, 2019 15:52
--- NOTE | 2019-07-31 16:45 | Surgery Progress Note ---
Surgery Progress Note Subjective Procedure Performed Right femoral temporary hemodialysis catheter removal Additional Comments left IJ temp hd line removed right chest wall tunneled cath okay HD today Objective Last 24 Hour Vital Signs Date Time Temp Pulse Resp B/P (MAP) Pulse Ox O2 Delivery O2 Flow Rate FiO2 07/31/19 16:15 148/86 07/31/19 16:00 115 07/31/19 16:00 99.5 118 33 137/80 (99) 100 07/31/19 16:00 Mechanical Ventilator 07/31/19 16:00 30 07/31/19 15:07 112 0 121/69 (86) 100 07/31/19 15:05 114 16 85/69 (74) 100 07/31/19 15:00 118 3 89/60 (70) 100 07/31/19 14:06 111 16 113/72 (86) 100 07/31/19 13:00 118 16 97/65 (76) 100 07/31/19 12:19 106 26 100 Mechanical Ventilator 30 106 38 30 07/31/19 12:09 108 26 124/69 (87) 100 07/31/19 12:00 Mechanical Ventilator 07/31/19 12:00 108 07/31/19 12:00 30 07/31/19 12:00 99.2 111 23 124/78 (93) 100 07/31/19 11:00 108 12 104/69 (81) 100 07/31/19 10:00 110 5 108/67 (81) 100 07/31/19 09:00 108 20 125/78 (94) 100 07/31/19 08:00 Mechanical Ventilator 07/31/19 08:00 99 20 150/82 (104) 100 07/31/19 08:00 30 07/31/19 08:00 97 07/31/19 07:54 96 26 100 Mechanical Ventilator 30 101 29 30 07/31/19 07:00 106 20 137/79 (98) 100 07/31/19 06:30 108 20 07/31/19 06:00 111 13 139/81 (100) 99 07/31/19 05:00 119 20 134/85 (101) 100 07/31/19 04:00 30 07/31/19 04:00 Mechanical Ventilator 07/31/19 04:00 99.4 117 28 133/78 (96) 100 07/31/19 03:31 118 33 99 Mechanical Ventilator 30 119 33 30 07/31/19 03:07 120 07/31/19 03:00 121 30 132/83 (99) 100 07/31/19 02:30 117 26 121/80 (94) 100 07/31/19 02:00 124 16 125/79 (94) 100 07/31/19 01:00 119 26 124/79 (94) 99 07/31/19 00:00 131 07/31/19 00:00 Mechanical Ventilator 07/31/19 00:00 99.3 131 32 118/85 (96) 100 07/31/19 00:00 30 07/30/19 23:21 134 35 100 Mechanical Ventilator 30 133 37 30 07/30/19 23:00 112 26 125/73 (90) 100 07/30/19 22:00 110 27 114/70 (85) 100 07/30/19 21:00 112 31 117/71 (86) 100 07/30/19 20:00 99.0 111 30 119/74 (89) 100 07/30/19 20:00 30 07/30/19 20:00 Mechanical Ventilator 07/30/19 19:50 116 35 100 Mechanical Ventilator 30 114 32 30 07/30/19 19:14 114 07/30/19 19:00 110 0 109/72 (84) 100 07/30/19 18:00 115 0 105/66 (79) 100 07/30/19 17:00 114 8 130/80 (97) 100 I&O Intake and Output 07/30/19 07/31/19 19:00 07:00 Intake Total 235 ml 505 ml Output Total 0 ml 0 ml Balance 235 ml 505 ml Free Water 10 ml Tube Feeding 225 ml 405 ml Other 100 ml Output Urine Total 0 ml 0 ml # Bowel Movements 4 3 Dressing: other Wound: other Drains: other Cardiovascular: RSR Respiratory: decreased breath sounds Abdomen: soft, present bowel sounds Extremities: no cyanosis, other Laboratory Tests Test 07/31/19 03:45 White Blood Count 16.5 K/UL (4.8-10.8) H Red Blood Count 3.28 M/UL (4.70-6.10) L Hemoglobin 9.4 G/DL (14.2-18.0) L Hematocrit 31.4 % (42.0-52.0) L Mean Corpuscular Volume 96 FL (80-99) Mean Corpuscular Hemoglobin 28.7 PG (27.0-31.0) Mean Corpuscular Hemoglobin Concent 30.0 G/DL (32.0-36.0) L Red Cell Distribution Width 17.9 % (11.6-14.8) H Platelet Count 447 K/UL (150-450) Mean Platelet Volume 6.6 FL (6.5-10.1) Neutrophils (%) (Auto) 84.1 % (45.0-75.0) H Lymphocytes (%) (Auto) 8.6 % (20.0-45.0) L Monocytes (%) (Auto) 5.4 % (1.0-10.0) Eosinophils (%) (Auto) 1.2 % (0.0-3.0) Basophils (%) (Auto) 0.8 % (0.0-2.0) Sodium Level 142 MMOL/L (136-145) Potassium Level 3.7 MMOL/L (3.5-5.1) Chloride Level 101 MMOL/L (98-107) Carbon Dioxide Level 26 MMOL/L (21-32) Anion Gap 15 mmol/L (5-15) Blood Urea Nitrogen 65 mg/dL (7-18) H Creatinine 9.2 MG/DL (0.55-1.30) H Estimat Glomerular Filtration Rate 5.8 mL/min (>60) Glucose Level 163 MG/DL (74-106) H Calcium Level 9.2 MG/DL (8.5-10.1) Phosphorus Level 3.2 MG/DL (2.5-4.9) Magnesium Level 2.8 MG/DL (1.8-2.4) H Total Bilirubin 0.4 MG/DL (0.2-1.0) Aspartate Amino Transf (AST/SGOT) 19 U/L (15-37) Alanine Aminotransferase (ALT/SGPT) 8 U/L (12-78) L Alkaline Phosphatase 119 U/L (46-116) H C-Reactive Protein, Quantitative 6.2 mg/dL (0.00-0.90) H Pro-B-Type Natriuretic Peptide 15474 pg/mL (0-125) H Total Protein 8.7 G/DL (6.4-8.2) H Albumin 2.7 G/DL (3.4-5.0) L Globulin 6.0 g/dL Albumin/Globulin Ratio 0.5 (1.0-2.7) L Plan Problems: (1) Suspected COVID-19 virus infection (2) HTN (hypertension) (3) CASSANDRA (acute kidney injury) Assessment & Plan: Needs urgent HD needs access patient okay and consented see note will follow with recs new line placed discussed with team and nephrology HD line functional when checked has TPA now please use appropriately Cathflo used again this flow during dialysis on 430 was low. Will monitor may need line change 5/ plan for HD as per renal may need to take fluid off with HD edema anasarca dressings saturated and changed will monitor cont with HD IJ left line placed for HD given extent of prior line in place. leukocytosis blood cx negative may need to change out line new line okay HD going well Continue HD as tolerated May need pressors for HD as needed (4) Anemia in chronic kidney disease (CKD) (5) Anemia (6) Renal failure (7) Suspected COVID-19 virus infection Assessment & Plan: Pt deconditioned and despite all skin preventions Pt noted to have developed several pressure injuries. . Stable dry eschar noted to clefts of R and L ears. No erythema noted . DTPI noted to L trochanter. Base of injury is maroon in colour with marginal erythema along borders. Partially opened DTPI Sacrum, R and L Buttocks. Base of wound is maroon with two small open wounds L sacrum and L buttocks. Pt has an APM/MOMO Mattress overlay and is being positioned with pillows as per tolerance and within protocols. worsening despite medical efforts will cont to provide therapy Tx.Plan: Apply Cavilon Skin Barrier to both ears Daily and prn. Apply Moisture Barrier Paste to Sacrum,R and L Buttocks. Cover with Optifoam drsgs. Change every 3 days and PRN. Apply Cavilon Skin Barrier to R and L trochanter. Cover each site with Optifoam drsgs.Change every 7 days and PRN. Apply Cavilon Skin Barrier to both heels. Cover each heel with Optifoam drsg. Change every 7 days and prn. Off-load heels with pillow. Reposition at least every 2hours or as tolerated. APM/MOMO Mattress overlay. (8) COVID-19 Assessment & Plan: COVID + c diff negative febrile leukocytosis renal insufficiency see above cont resp care Rx as per ID worsening on vent support now cxr noted on pressors prognosis guarded repeat covid ++ weaning vent and pressors off slowly showing improvement slowly recovering will need trach as unable to wean vent safely called and spoke with country conservatorship. consent obtained s/p trach pending peg worsening on levo max (9) Sepsis Assessment & Plan: worsening leukocytosis febrile on pressors discussed with ID. lines evaluated and clean. he is septic on pressors and needs central access in difficult venous access patient blood cultures negative will monitor line change tomorrow Yaniv Mast Jul 31, 2019 16:45
--- NOTE | 2019-07-31 16:46 | Operative Note - PDOC ---
Operative Note Operative Note Date of Operation/Procedure: Jul 31, 2019 Pre-op Diagnosis: COVID + sepsis respiratory insufficiency renal insufficiency Procedure: Left internal jugular temporary hemodialysis catheter removal Post-op Diagnosis: same as pre-op Surgeon: niyah Specimen: none Complications: none Condition: unstable Fluids: see records Estimated Blood Loss: minimal Drains: none Implant(s) used?: No Indications for Procedure Patient had right tunneled catheter placed for future dialysis more chronic line functional HD today plan for removal of prior temp line Description of Procedure Patient made comfortable the bedside. The dressings were removed from the right internal jugular line. Sutures were cut. Line was removed and pressure was held for approximately 10 minutes until hemostasis noted. New dressings applied. Will monitor site. Yaniv Mast Jul 31, 2019 16:46
[2019-07-31] MEDS: Dyna-Hex 2% Top Sol 2oz TOPIC SCH (19:36)
--- NOTE | 2019-07-31 20:42 | General Progress Note ---
Assessment/Plan Status: progressing, unchanged, deteriorating Assessment/Plan: Assessment/Plan Status: progressing, unchanged, deteriorating Assessment/Plan: 1. Diabetes. 2. Hypertension. 3. Coronary artery disease. 4. COPD. 5. Psychiatric disorder with schizophrenia. 6. History of hepatitis C. 7. HLP. 8. Chronic kidney disease, now with acute renal failure. 9. Anemia. 10. Hypothyroidism. 11. Spinal stenosis. 12. Constipation. 13. GERD. 14. COVID positive 15. 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 tolerating TF (+) rectal tube Objective Last 24 Hour Vital Signs Date Time Temp Pulse Resp B/P (MAP) Pulse Ox O2 Delivery O2 Flow Rate FiO2 07/31/19 19:59 113 26 30 07/31/19 19:00 113 35 108/49 (68) 99 07/31/19 18:30 117 24 107/80 (89) 100 07/31/19 18:00 121 27 122/78 (93) 100 07/31/19 17:30 117 29 126/79 (95) 100 07/31/19 17:00 127 34 143/108 (120) 100 07/31/19 16:15 148/86 07/31/19 16:00 115 07/31/19 16:00 99.5 118 33 137/80 (99) 100 07/31/19 16:00 Mechanical Ventilator 07/31/19 16:00 30 07/31/19 15:23 113 32 100 Mechanical Ventilator 30 106 38 30 07/31/19 15:07 112 0 121/69 (86) 100 07/31/19 15:05 114 16 85/69 (74) 100 07/31/19 15:00 118 3 89/60 (70) 100 07/31/19 14:06 111 16 113/72 (86) 100 07/31/19 13:00 118 16 97/65 (76) 100 07/31/19 12:19 106 26 100 Mechanical Ventilator 30 106 38 30 07/31/19 12:09 108 26 124/69 (87) 100 07/31/19 12:00 Mechanical Ventilator 07/31/19 12:00 108 07/31/19 12:00 30 07/31/19 12:00 99.2 111 23 124/78 (93) 100 07/31/19 11:00 108 12 104/69 (81) 100 07/31/19 10:00 110 5 108/67 (81) 100 07/31/19 09:00 108 20 125/78 (94) 100 07/31/19 08:00 Mechanical Ventilator 07/31/19 08:00 99 20 150/82 (104) 100 07/31/19 08:00 30 07/31/19 08:00 97 07/31/19 07:54 96 26 100 Mechanical Ventilator 30 101 29 30 07/31/19 07:00 106 20 137/79 (98) 100 07/31/19 06:30 108 20 07/31/19 06:00 111 13 139/81 (100) 99 07/31/19 05:00 119 20 134/85 (101) 100 07/31/19 04:00 30 07/31/19 04:00 Mechanical Ventilator 07/31/19 04:00 99.4 117 28 133/78 (96) 100 07/31/19 03:31 118 33 99 Mechanical Ventilator 30 119 33 30 07/31/19 03:07 120 07/31/19 03:00 121 30 132/83 (99) 100 07/31/19 02:30 117 26 121/80 (94) 100 07/31/19 02:00 124 16 125/79 (94) 100 07/31/19 01:00 119 26 124/79 (94) 99 07/31/19 00:00 131 07/31/19 00:00 Mechanical Ventilator 07/31/19 00:00 99.3 131 32 118/85 (96) 100 07/31/19 00:00 30 07/30/19 23:21 134 35 100 Mechanical Ventilator 30 133 37 30 07/30/19 23:00 112 26 125/73 (90) 100 07/30/19 22:00 110 27 114/70 (85) 100 07/30/19 21:00 112 31 117/71 (86) 100 Intake and Output 07/30/19 07/31/19 19:00 07:00 Intake Total 235 ml 505 ml Output Total 0 ml 0 ml Balance 235 ml 505 ml Free Water 10 ml Tube Feeding 225 ml 405 ml Other 100 ml Output Urine Total 0 ml 0 ml # Bowel Movements 4 3 Laboratory Tests 07/31/19 03:45: White Blood Count 16.5H, Red Blood Count 3.28L, Hemoglobin 9.4L, Hematocrit 31.4L, Mean Corpuscular Volume 96, Mean Corpuscular Hemoglobin 28.7, Mean Corpuscular Hemoglobin Concent 30.0L, Red Cell Distribution Width 17.9H, Platelet Count 447, Mean Platelet Volume 6.6, Neutrophils (%) (Auto) 84.1H, Lymphocytes (%) (Auto) 8.6L, Monocytes (%) (Auto) 5.4, Eosinophils (%) (Auto) 1.2, Basophils (%) (Auto) 0.8, Sodium Level 142, Potassium Level 3.7, Chloride Level 101, Carbon Dioxide Level 26, Anion Gap 15, Blood Urea Nitrogen 65H, Creatinine 9.2H, Estimat Glomerular Filtration Rate 5.8, Glucose Level 163H, Calcium Level 9.2, Phosphorus Level 3.2, Magnesium Level 2.8H, Total Bilirubin 0.4, Aspartate Amino Transf (AST/SGOT) 19, Alanine Aminotransferase (ALT/SGPT) 8L, Alkaline Phosphatase 119H, C-Reactive Protein, Quantitative 6.2H, Pro-B- Type Natriuretic Peptide 21376N, Total Protein 8.7H, Albumin 2.7L, Globulin 6.0 , Albumin/Globulin Ratio 0.5L Height (Feet): 6 Height (Inches): 1.00 Weight (Pounds): 156 Objective Patient seen in ICU resting comfortably (+) Trach (+) GT Rod Mina MD Jul 31, 2019 20:42
[2019-08-01] VITALS (25 sets, daily range): BP systolic 94–143; BP diastolic 67–89
[2019-08-01] MEDS: Albuterol 90mcg Inhaler 8gm INH SCH ×6 (03:00→23:41)
[2019-08-01] MEDS: Metoclopramide 10mg/2ml Inj IVP SCH ×3 (05:43→21:39)
[2019-08-01] MEDS: Midodrine 10mg tab NG SCH ×3 (05:44→21:39)
[2019-08-01] MEDS: NovoLOG Insulin Flexpen SUBQ SCH ×4 (05:45→23:59)
--- NOTE | 2019-08-01 06:29 | Hematology/Onc Progress Note ---
Assessment/Plan Assessment/Plan Assessment and Recs: # Anemia of chronic disease, likely related ot underlying kidney disease has COIVD19++++++ --> hgb trend 9-->8-->7.3-->7.9-->6.8->9.5-->10->8.3-->7.7-->7.1-->8.9->8.8->7.7 -->8.1 ->7.9-->7.7 -->8.2-->8.1 -->7.9-->8.5 -->9->9.2-->9.5-->10.7 -->9.8--> 10.2-->11.8 -->11.9-->8.8 ->9.4->9-->8.3 -->8.5-->9.4 --> transfuse as needed, hgb goal >7 --> no evidence of hemolysis --> peripheral smear has been reviewed --> epogen started 3 x a week ==>> transfuse 06/08, 06/15 # Leukocytosis likely related to suspected COVID-19 virus infection --> completed plaquenil --> trend smear as needed --> wbc trend: 4-->11-->14.5-->21-->26-->21->24--.28-->23-->19-->16.2-->21--> 11.2 -->12.5-->12.3-->12.4-->18.5-->18.5-->17->13-->18.2-->22.2-->25-->17.4-->17 -->14.2-->14-->16 --> pulm is aware --> on abx cefepime/vanc->zosyn/vanc-->dom/vanc-->dom-->levaquin/cefepime--> vanc --> pressors as needed --> 5/18 covid 19++ --> pressors as needed in icu # Thrombocytopenia/Lymphopenia --> likely related to covid19 --> plt 129k-->186k-->251-->285-->384 -->430-->539-->515-->447-->451-->404-->544 -->244 # Respiratory failure with covid19+ --> s/p vent/trach --> weaning # Possible Pneumonia --> abx completed --> 07/13 cxr: Improved right lung infiltrates. # Cardiomegaly # Transaminitis with Elevated AST # COPD # Chronic Kidney Disease --> per renal hd --> s/p right femoral cath 07/02 # Hypertension # peg # Dvt ppx lovenox Appreciate consultation and dw Rn Subjective Constitutional: Denies: no symptoms, chills, fever, malaise, weakness, other HEENT: Denies: no symptoms, eye pain, blurred vision, tearing, double vision, ear pain, ear discharge, nose pain, nose congestion, throat pain, throat swelling, mouth pain, mouth swelling, other Cardiovascular: Denies: no symptoms, chest pain, edema, irregular heart rate, lightheadedness, palpitations, syncope, other Gastrointestinal/Abdominal: Denies: no symptoms, abdomen distended, abdominal pain, black stools, tarry stools, blood in stool, constipated, diarrhea, difficulty swallowing, nausea, poor appetite, poor fluid intake, rectal bleeding , vomiting, other Genitourinary: Denies: no symptoms, burning, discharge, frequency, flank pain, hematuria, incontinence, pain, urgency, other Neurologic/Psychiatric: Denies: no symptoms, anxiety, depressed, emotional problems, headache, numbness, paresthesia, pre-existing deficit, seizure, tingling, tremors, weakness, other Endocrine: Denies: no symptoms, excessive sweating, flushing, intolerance to cold, intolerance to heat, increased hunger, increased thirst, increased urine, unexplained weight gain, unexplained weight loss, other Allergies: Coded Allergies: No Known Allergies (Unverified , 05/28/19) Subjective 06/01 nv, extremely agitated, not allowing labs draws, no night sweats, cbc ordered 06/02 confused, restraints, on abx and plaquenil, hgb 7.9, nrb 15 L 06/03 is with nonrebreather, but not compliant, remains confused 06/05 no bleeding, labs noted, no major bleeding, otherwise comfortable 06/06 labs reviewed, no bleeding, meds noted, no night sweats, on levo and nonrebreather 06/07 labs noted, no bleeding, meds reviewed, no bleeding, wbc higher 06/08 to get 2 units prbc, no night sweats, meds reviewed 06/09 is on cefepime and vanc, labs noted, ernesto Rn, no bleeding 06/10 no major changes, labs reviewed, wbc 28k, on abx, cefepime 06/12 remains in icu, labs noted, no night sweats or bleeding 06/13 sluggish pupils, remains agitated, per psych, no bleding, on vent, wbc sitll high 06/14 still confused, remains on vent, with ng, running nepro, on pressors 06/15 icu, febrile, non verbal, hgb 7.1, blood pending, completed plaq 06/16 remains in the icu, nonverbal, plan for hd tomorrow, ernesto rn 06/17 in icu, on pressor, nonverbal, on abx, no bleeding 06/19 no bleeding, nonverbal in icu, hgb is 7.7 06/20 on zosyn, tube feeds, vent, labs noted, in icu, nv 06/21 gettng hd as per renal, in icu, nv, no bleeding, tfs 06/22 icu, cxr with slight improvement, cooling blanket, weaning today 06/23 wewaning, in icu, on vent, abx, and pressors as needed, labs noted 06/24 failed weaning, off abx, completed plaquenil, hgb 8.1 06/26 icu, weaning for this am, afebrile, hgb 8 06/27 in icu, remains comotose, weaning started on peep, no night sweats 06/28 weaning today, off abx, restraints, no distress, h/h stable 06/29 covid 19+, failed weaning, no blood transfusion needed 06/30 icu, on vent, labs reviewed, no distress 07/01 in icu, may need trach, remains on hd per renal, labs noted 07/02 s/p right fem cath, failed wean, no new orders, h/h stable 07/03 is somewhat more responsive, on abx, no bleeding, weaning and HD today 07/04 hd as per renal, weaning off vent, no bleeding today 07/05 obtunded, no bleding overnight, with hd for tomorrow noted, vanc 07/08 no events, remains with trach/vent, ernesto Rn, no bleeding, cbc is noted 07/09 no overnight events, peg for friday pending consent 07/10 off pressors, vent, restraints, labs reviewed 07/11 no acute events is on pressors, intubated, agitated still 07/12 is resting comfortably, no bleeding, emds reviewed and noted 07/13 icu, no events, trach, cxr reviewed, 07/14 is onv ent, tachypneic and tachycardic, labs noted 07/15 remains confused, intubated, ernesto Rn, no bleeding 07/17 icu, cxr improving infiltrates, levo gtt, airborne/contact isolation 07/18 is on broad spectrum abx, is on levaquin and cefepime, wbc 16 agitated 07/19 icu, levo gtt, cxr unchanged, tachy, hd thursday 07/20 sedated, safety restraints, labs reviewed 07/21 hd was done yesterday, lower pressor requirements, wbc is worse, on abx 07/22 icu, meds and labs reviewed, vent, no distress 07/24 on vent, in icu, labs noted, remains agitated, and confused 07/25 remains obtunded, on vent, on pressor, hgb 9, wbc elev 07/26 icu, levo gtt, vent, iv abx, nonverbal 07/27 failed weaning, labs reviewed, repeat covid swab pending 07/28 labs are noted, no bleeding, on vent/trach gtube feeds ernesto rn 07/29 iuc, restraints, no new changes, vent 07/31 is asleep, comfortable, no events, labs reviewed, restraints+ Objective Objective Current Medications Medications (Trade) Dose Ordered Sig/Anthony Route PRN Reason Start Time Stop Time Status Last Admin Dose Admin Acetaminophen (Tylenol) 650 mg Q4H PRN NG For Pain 07/11/19 08:00 08/10/19 07:59 07/28/19 08:09 Albuterol Sulfate (Proventil MDI) 2 puff Q4HRT INH 06/06/19 23:00 08/30/19 18:59 07/31/19 12:18 Chlorhexidine Gluconate (Michelle-Hex 2%) 1 applic DAILY@2000 TOPIC 06/07/19 20:00 09/05/19 19:59 07/31/19 19:36 Dextrose (Dextrose 50%) 25 ml Q30M PRN IV Hypoglycemia 06/20/19 19:30 09/18/19 19:29 Dextrose (Dextrose 50%) 50 ml Q30M PRN IV Hypoglycemia 06/20/19 19:30 09/18/19 19:29 Dopamine HCl/ Dextrose 250 ml @ 0 mls/hr Q24H PRN IV For hypotension 06/13/19 08:15 09/11/19 08:14 07/17/19 08:46 Enoxaparin Sodium (Lovenox) 30 mg DAILY SUBQ 06/07/19 09:00 08/27/19 08:59 07/31/19 08:01 Epoetin Aftab (Epoetin Aftab(ESRD on dialysis)) 10,000 unit SUBQ 06/07/19 21:00 08/31/19 20:59 07/30/19 20:50 Fentanyl Citrate 250 ml @ 0 mls/hr Q24H IV 07/19/19 14:06 10/17/19 14:05 07/28/19 21:16 Haloperidol Lactate 5 mg/ Dextrose 56 ml @ 224 mls/hr Q6H PRN IVPB Agitation 07/11/19 15:00 08/25/19 14:59 07/30/19 23:26 Hydralazine HCl (Apresoline) 10 mg Q4H PRN IV Blood pressure over 160 systol 06/07/19 10:15 09/05/19 10:14 Insulin Aspart (NovoLOG) EVERY 6 HOURS SUBQ 06/21/19 00:00 09/19/19 00:00 08/01/19 05:45 Metoclopramide HCl (Reglan) 5 mg Q8HR IVP 07/29/19 18:00 08/28/19 17:59 08/01/19 05:43 Midodrine (Pro-Amatine) 10 mg Q8HR NG 07/29/19 14:00 10/15/19 10:29 08/01/19 05:44 Norepinephrine Bitartrate 8 mg/ Sodium Chloride 250 ml @ 0 mls/hr Q24H IV 07/23/19 16:15 08/22/19 16:14 07/24/19 17:41 Pantoprazole (Protonix) 40 mg DAILY IVP 07/27/19 09:00 08/26/19 08:59 07/31/19 08:00 Vancomycin HCl (Vanco pharmacy to dose) 1 ea DAILY PRN MISC Per rx protocol 07/20/19 10:45 08/19/19 10:44 Last 24 Hour Vital Signs Date Time Temp Pulse Resp B/P (MAP) Pulse Ox O2 Delivery O2 Flow Rate FiO2 08/01/19 06:00 116 21 131/72 (91) 100 08/01/19 05:00 115 18 132/89 (103) 100 08/01/19 04:00 Mechanical Ventilator 08/01/19 04:00 114 26 118/81 (93) 100 08/01/19 04:00 30 08/01/19 03:12 118 27 30 08/01/19 03:00 113 08/01/19 03:00 113 26 108/71 (83) 100 08/01/19 02:00 113 26 116/72 (87) 100 08/01/19 01:00 118 26 143/78 (99) 100 08/01/19 00:00 30 08/01/19 00:00 Mechanical Ventilator 08/01/19 00:00 97.4 113 26 112/68 (83) 100 08/01/19 00:00 113 07/31/19 23:00 109 26 104/70 (81) 100 07/31/19 23:00 121 26 30 07/31/19 22:30 108 26 115/72 (86) 100 07/31/19 22:00 113 26 130/82 (98) 99 07/31/19 21:00 116 18 124/80 (95) 100 07/31/19 20:30 114 23 122/75 (91) 98 07/31/19 20:00 30 07/31/19 20:00 99.5 113 26 127/79 (95) 100 07/31/19 20:00 Mechanical Ventilator 07/31/19 19:59 113 26 30 07/31/19 19:27 113 07/31/19 19:00 113 35 108/49 (68) 99 07/31/19 18:30 117 24 107/80 (89) 100 07/31/19 18:00 121 27 122/78 (93) 100 07/31/19 17:30 117 29 126/79 (95) 100 07/31/19 17:00 127 34 143/108 (120) 100 07/31/19 16:15 148/86 07/31/19 16:00 115 07/31/19 16:00 99.5 118 33 137/80 (99) 100 07/31/19 16:00 Mechanical Ventilator 07/31/19 16:00 30 07/31/19 15:23 113 32 100 Mechanical Ventilator 30 106 38 30 07/31/19 15:07 112 0 121/69 (86) 100 07/31/19 15:05 114 16 85/69 (74) 100 07/31/19 15:00 118 3 89/60 (70) 100 07/31/19 14:06 111 16 113/72 (86) 100 07/31/19 13:00 118 16 97/65 (76) 100 07/31/19 12:19 106 26 100 Mechanical Ventilator 30 106 38 30 07/31/19 12:09 108 26 124/69 (87) 100 07/31/19 12:00 Mechanical Ventilator 07/31/19 12:00 108 07/31/19 12:00 30 07/31/19 12:00 99.2 111 23 124/78 (93) 100 07/31/19 11:00 108 12 104/69 (81) 100 07/31/19 10:00 110 5 108/67 (81) 100 07/31/19 09:00 108 20 125/78 (94) 100 07/31/19 08:00 Mechanical Ventilator 07/31/19 08:00 99 20 150/82 (104) 100 07/31/19 08:00 30 07/31/19 08:00 97 07/31/19 07:54 96 26 100 Mechanical Ventilator 30 101 29 30 07/31/19 07:00 106 20 137/79 (98) 100 07/31/19 06:30 108 20 07/31/19 06:00 111 13 139/81 (100) 99 07/31/19 05:00 119 20 134/85 (101) 100 07/31/19 04:00 30 07/31/19 04:00 Mechanical Ventilator 07/31/19 04:00 99.4 117 28 133/78 (96) 100 07/31/19 03:31 118 33 99 Mechanical Ventilator 30 119 33 30 07/31/19 03:07 120 07/31/19 03:00 121 30 132/83 (99) 100 07/31/19 02:30 117 26 121/80 (94) 100 07/31/19 02:00 124 16 125/79 (94) 100 07/31/19 01:00 119 26 124/79 (94) 99 07/31/19 00:00 131 07/31/19 00:00 Mechanical Ventilator 07/31/19 00:00 99.3 131 32 118/85 (96) 100 07/31/19 00:00 30 07/30/19 23:21 134 35 100 Mechanical Ventilator 30 133 37 30 07/30/19 23:00 112 26 125/73 (90) 100 07/30/19 22:00 110 27 114/70 (85) 100 07/30/19 21:00 112 31 117/71 (86) 100 07/30/19 20:00 99.0 111 30 119/74 (89) 100 07/30/19 20:00 30 07/30/19 20:00 Mechanical Ventilator 07/30/19 19:50 116 35 100 Mechanical Ventilator 30 114 32 30 07/30/19 19:14 114 07/30/19 19:00 110 0 109/72 (84) 100 07/30/19 18:00 115 0 105/66 (79) 100 07/30/19 17:00 114 8 130/80 (97) 100 07/30/19 16:15 137/78 07/30/19 16:00 98.9 115 0 106/70 (82) 99 07/30/19 16:00 30 07/30/19 16:00 Mechanical Ventilator 07/30/19 16:00 115 07/30/19 15:59 115 29 100 Mechanical Ventilator 30 106 28 30 07/30/19 15:00 128 18 122/81 (95) 99 07/30/19 14:35 130 132/89 (103) 100 07/30/19 14:30 131 25 123/90 (101) 100 07/30/19 14:25 133 29 128/86 (100) 99 07/30/19 14:20 133 33 134/94 (107) 98 07/30/19 14:15 134 32 158/99 (118) 100 07/30/19 14:10 125 124/80 (95) 100 07/30/19 14:05 130 23 142/94 (110) 100 07/30/19 14:00 130 33 128/82 (97) 99 07/30/19 13:00 113 27 152/93 (112) 100 07/30/19 12:00 Mechanical Ventilator 07/30/19 12:00 99.0 98 8 122/67 (85) 100 07/30/19 12:00 30 07/30/19 12:00 97 07/30/19 11:00 95 21 147/84 (105) 100 07/30/19 10:45 95 27 100 Mechanical Ventilator 30 94 28 30 07/30/19 10:00 94 27 133/79 (97) 100 07/30/19 09:00 90 25 125/73 (90) 100 07/30/19 08:00 91 07/30/19 08:00 Mechanical Ventilator 07/30/19 08:00 30 07/30/19 08:00 99.2 90 26 117/73 (88) 100 07/30/19 07:10 87 26 100 Mechanical Ventilator 30 89 26 30 07/30/19 07:00 92 23 139/73 (95) 100 07/30/19 06:30 94 26 07/30/19 06:30 94 26 126/73 (90) 100 Intake and Output 07/31/19 08/01/19 19:00 07:00 Intake Total 670 ml 595 ml Output Total 250 ml 200 ml Balance 420 ml 395 ml Free Water 30 ml IV Total 100 ml Tube Feeding 540 ml 495 ml Other 100 ml Output Urine Total 0 ml 0 ml Stool Total 250 ml 200 ml Hemodialysis UF 0 ml Labs Test 07/30/19 03:45 07/30/19 08:45 07/31/19 03:45 08/01/19 04:18 Random Vancomycin Level 20.6 ug/mL 17.9 ug/mL Prothrombin Time 11.6 SEC (9.30-11.50) Prothromb Time International Ratio 1.1 (0.9-1.1) Activated Partial Thromboplast Time 25 SEC (23-33) White Blood Count 16.5 K/UL (4.8-10.8) Red Blood Count 3.28 M/UL (4.70-6.10) Hemoglobin 9.4 G/DL (14.2-18.0) Hematocrit 31.4 % (42.0-52.0) Mean Corpuscular Volume 96 FL (80-99) Mean Corpuscular Hemoglobin 28.7 PG (27.0-31.0) Mean Corpuscular Hemoglobin Concent 30.0 G/DL (32.0-36.0) Red Cell Distribution Width 17.9 % (11.6-14.8) Platelet Count 447 K/UL (150-450) Mean Platelet Volume 6.6 FL (6.5-10.1) Neutrophils (%) (Auto) 84.1 % (45.0-75.0) Lymphocytes (%) (Auto) 8.6 % (20.0-45.0) Monocytes (%) (Auto) 5.4 % (1.0-10.0) Eosinophils (%) (Auto) 1.2 % (0.0-3.0) Basophils (%) (Auto) 0.8 % (0.0-2.0) Sodium Level 142 MMOL/L (136-145) Potassium Level 3.7 MMOL/L (3.5-5.1) Chloride Level 101 MMOL/L (98-107) Carbon Dioxide Level 26 MMOL/L (21-32) Anion Gap 15 mmol/L (5-15) Blood Urea Nitrogen 65 mg/dL (7-18) Creatinine 9.2 MG/DL (0.55-1.30) Estimat Glomerular Filtration Rate 5.8 mL/min (>60) Glucose Level 163 MG/DL (74-106) Calcium Level 9.2 MG/DL (8.5-10.1) Phosphorus Level 3.2 MG/DL (2.5-4.9) Magnesium Level 2.8 MG/DL (1.8-2.4) Total Bilirubin 0.4 MG/DL (0.2-1.0) Aspartate Amino Transf (AST/SGOT) 19 U/L (15-37) Alanine Aminotransferase (ALT/SGPT) 8 U/L (12-78) Alkaline Phosphatase 119 U/L (46-116) C-Reactive Protein, Quantitative 6.2 mg/dL (0.00-0.90) Pro-B-Type Natriuretic Peptide 99806 pg/mL (0-125) Total Protein 8.7 G/DL (6.4-8.2) Albumin 2.7 G/DL (3.4-5.0) Globulin 6.0 g/dL Albumin/Globulin Ratio 0.5 (1.0-2.7) Height (Feet): 6 Height (Inches): 1.00 Weight (Pounds): 155 Objective General: nv, confused, sedated Heent: bilateral eye normal inspection, bilateral eye PERRL ++Ng Respiratory: normal breath sounds, no respiratory distress, intubated/vent +++ trach+++ Cardiovascular: regular rate, rhythm, no edema Gastrointestinal: normal inspection, soft, non-distended, peg+ Rectal: deferred Musculoskeletal: normal range of motion, non-tender, R fem cath++ Neurologic: alert, motor strength/tone normal, sensory intact, responsive, speech normal Skin: Decubitus/Ulcer - See RN skin exam. : jamaal+ Greg Cabral MD Aug 01, 2019 06:29
[2019-08-01] MEDS ORDERED: Vancomycin 750mg/D5W 275ml IVPB SCH ×2 (08:00)
[2019-08-01] MEDS: Pantoprazole Inj IVP SCH (08:01)
[2019-08-01] MEDS: Enoxaparin 30mg Inj SUBQ SCH (08:03)
[2019-08-01] MEDS ORDERED: Tubing IV Secondary IV ONE (08:42)
[2019-08-01] MEDS ORDERED: Vancomycin 750mg/D5W 275ml IVPB ONE ×2 (09:00)
--- NOTE | 2019-08-01 09:18 | Pulmonolgy Critical Care Note ---
Critical Care - Asmt/Plan Assessment/Plan: Pulmonary CCM Progress Note HPI: Patient is a 68 year old man, shelter resident, admitted c/o shortness of breath, cough, noted to have Covid 19 Pneumonia, Respiratory Failure Remains on Ventilator, CXR infiltrates stable, not tolerating weaning CKD on HD - on Mitodrine, not tolerating weaning, will need eventual placement, second repeat COVID19 test positive Preserved EF FIO2 30%, P5, adequate O2 sats, remains on ACVC, s/p Tracheostomy previously, sp PEG, sp Permacath ID following Seen earlier on 07/31/2019 Past Medical History: COPD, CKD, Hypertension, Anemia Allergies: No Known Allergies Improving Pulmonary Status on HD Physical Exam Vital Signs Noted Stable on ventilator Chronically ill appearing HEENT: moist mm, trach Chest: Occasional rhonchi, BS equal bilaterally Heart: HS1, HS2, RRR Abdomen: SNTND G tube Extremities: No edema, 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, 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 Impression: COVID-19 virus infection Pneumonia Respiratory failure on ventilator, wean as tolerated once off pressors CKD - on HD Hypotension on pressors previously Cardiomegaly Lymphopenia Elevated AST COPD Chronic Kidney Disease - HD H/o Hypertension Worsening anemia Plan: SP Tracheostomy / G tube Antibiotics per ID HD Pressors PRN ACVC - 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 Monitor cultures/viral studies PPX Hemodialysis per Renal Psychiatry following Laboratory Tests Noted: CXR: Hypoventilatory exam, interstitial changes, cardiomegaly, improving infiltrates Subjective ROS Limited/Unobtainable: No Constitutional: Denies: fever Respiratory: Reports: dry cough, shortness of breath Gastrointestinal/Abdominal: Reports: diarrhea, other - colace was stopped Psychiatric: Reports: other - refuses labs Allergies: Coded Allergies: No Known Allergies (Unverified , 05/28/19) All Systems: reviewed and negative except above Labs noted Critical Care - Objective Last 24 Hour Vital Signs Date Time Temp Pulse Resp B/P (MAP) Pulse Ox O2 Delivery O2 Flow Rate FiO2 08/01/19 09:00 110 34 124/75 (91) 100 08/01/19 08:30 30 08/01/19 08:22 102 36 30 08/01/19 08:19 100 26 100 Mechanical Ventilator 30 98 26 30 08/01/19 08:00 100.4 107 25 104/67 (79) 100 08/01/19 08:00 Mechanical Ventilator 08/01/19 08:00 30 08/01/19 07:00 109 14 118/78 (91) 100 08/01/19 06:30 113 23 120/78 (92) 100 08/01/19 06:30 113 23 08/01/19 06:00 116 21 131/72 (91) 100 08/01/19 05:00 115 18 132/89 (103) 100 08/01/19 04:00 Mechanical Ventilator 08/01/19 04:00 99.1 114 26 118/81 (93) 100 08/01/19 04:00 30 08/01/19 03:12 118 27 30 08/01/19 03:00 113 08/01/19 03:00 113 26 108/71 (83) 100 08/01/19 02:00 113 26 116/72 (87) 100 08/01/19 01:00 118 26 143/78 (99) 100 08/01/19 00:00 30 08/01/19 00:00 Mechanical Ventilator 08/01/19 00:00 97.4 113 26 112/68 (83) 100 08/01/19 00:00 113 07/31/19 23:00 109 26 104/70 (81) 100 07/31/19 23:00 121 26 30 07/31/19 22:30 108 26 115/72 (86) 100 20 22:00 113 26 130/82 (98) 99 20 21:00 116 18 124/80 (95) 100 07/31/19 20:30 114 23 122/75 (91) 98 20 20:00 30 07/31/19 20:00 99.5 113 26 127/79 (95) 100 20 20:00 Mechanical Ventilator 07/31/19 19:59 113 26 30 07/31/19 19:27 113 07/31/19 19:00 113 35 108/49 (68) 99 07/31/19 18:30 117 24 107/80 (89) 100 20 18:00 121 27 122/78 (93) 100 07/31/19 17:30 117 29 126/79 (95) 100 07/31/19 17:00 127 34 143/108 (120) 100 07/31/19 16:15 148/86 07/31/19 16:00 115 07/31/19 16:00 99.5 118 33 137/80 (99) 100 07/31/19 16:00 Mechanical Ventilator 07/31/19 16:00 30 07/31/19 15:23 113 32 30 07/31/19 15:07 112 0 121/69 (86) 100 07/31/19 15:05 114 16 85/69 (74) 100 07/31/19 15:00 118 3 89/60 (70) 100 07/31/19 14:06 111 16 113/72 (86) 100 07/31/19 13:00 118 16 97/65 (76) 100 07/31/19 12:19 106 26 100 Mechanical Ventilator 30 106 38 30 07/31/19 12:09 108 26 124/69 (87) 100 07/31/19 12:00 Mechanical Ventilator 07/31/19 12:00 108 07/31/19 12:00 30 07/31/19 12:00 99.2 111 23 124/78 (93) 100 07/31/19 11:00 108 12 104/69 (81) 100 07/31/19 10:00 110 5 108/67 (81) 100 Micro: Microbiology Date/Time Source Procedure Growth Status 07/30/19 05:00 Nasopharynx Coronavirus COVID-19 PCR ([facility]) - Final Complete Accucheck: 180 Critical Care - Subjective ROS Limited/Unobtainable: No Condition: stable IV Access: central FI02: 30 Vent Support Breath Rate: 26 Vent Support Mode: CPAP Vent Tidal Volume: 500 Sputum Amount: Moderate PEEP: 5.0 PIP: 14 Tube Feeding Amount: 45 I&O: Intake and Output 07/31/19 08/01/19 19:00 07:00 Intake Total 670 ml 640 ml Output Total 250 ml 200 ml Balance 420 ml 440 ml Free Water 30 ml IV Total 100 ml Tube Feeding 540 ml 540 ml Other 100 ml Output Urine Total 0 ml 0 ml Stool Total 250 ml 200 ml Hemodialysis UF 0 ml ET-Tube: 7.5 ET Position: 24 Arturo Mckeon MD Aug 01, 2019 09:18
--- NOTE | 2019-08-01 09:37 | General Progress Note ---
Assessment/Plan Problem List: (1) HTN (hypertension) ICD Codes: I10 - Essential (primary) hypertension SNOMED: 06078117 (2) CASSANDRA (acute kidney injury) ICD Codes: N17.9 - Acute kidney failure, unspecified SNOMED: 2467228, 15591717 (3) Anemia in chronic kidney disease (CKD) ICD Codes: N18.9 - Chronic kidney disease, unspecified; D63.1 - Anemia in chronic kidney disease SNOMED: 919267046 (4) Renal failure ICD Codes: N19 - Unspecified kidney failure SNOMED: 44039028 (5) Respiratory failure requiring intubation ICD Codes: J96.90 - Respiratory failure, unspecified, unspecified whether with hypoxia or hypercapnia; A41.89 - Other specified sepsis SNOMED: 642824512, 711064331 (6) Pneumonia due to COVID-19 virus ICD Codes: U07.1 - COVID-19; J12.89 - Other viral pneumonia SNOMED: 623766163, 851884021 (7) Sepsis due to severe acute respiratory syndrome coronavirus 2 (SARS-CoV-2) ICD Codes: U07.1 - COVID-19; A41.89 - Other specified sepsis SNOMED: 794078528, 187021395 Status: progressing, unchanged, deteriorating Assessment/Plan: persistent leukocytosis supportive rx needs ltac placement afebrile trach/peg s/p septic shock s/p covid pna Subjective ROS Limited/Unobtainable: Yes Allergies: Coded Allergies: No Known Allergies (Unverified , 05/28/19) Objective Last 24 Hour Vital Signs Date Time Temp Pulse Resp B/P (MAP) Pulse Ox O2 Delivery O2 Flow Rate FiO2 08/01/19 09:00 110 34 124/75 (91) 100 08/01/19 08:30 30 08/01/19 08:22 102 36 30 08/01/19 08:19 100 26 100 Mechanical Ventilator 30 98 26 30 08/01/19 08:00 100.4 107 25 104/67 (79) 100 08/01/19 08:00 106 08/01/19 08:00 Mechanical Ventilator 08/01/19 08:00 30 08/01/19 07:00 109 14 118/78 (91) 100 08/01/19 06:30 113 23 120/78 (92) 100 08/01/19 06:30 113 23 08/01/19 06:00 116 21 131/72 (91) 100 08/01/19 05:00 115 18 132/89 (103) 100 08/01/19 04:00 Mechanical Ventilator 08/01/19 04:00 99.1 114 26 118/81 (93) 100 08/01/19 04:00 30 08/01/19 03:12 118 27 30 08/01/19 03:00 113 08/01/19 03:00 113 26 108/71 (83) 100 08/01/19 02:00 113 26 116/72 (87) 100 08/01/19 01:00 118 26 143/78 (99) 100 08/01/19 00:00 30 08/01/19 00:00 Mechanical Ventilator 08/01/19 00:00 97.4 113 26 112/68 (83) 100 08/01/19 00:00 113 07/31/19 23:00 109 26 104/70 (81) 100 07/31/19 23:00 121 26 30 07/31/19 22:30 108 26 115/72 (86) 100 07/31/19 22:00 113 26 130/82 (98) 99 07/31/19 21:00 116 18 124/80 (95) 100 07/31/19 20:30 114 23 122/75 (91) 98 07/31/19 20:00 30 07/31/19 20:00 99.5 113 26 127/79 (95) 100 20 20:00 Mechanical Ventilator 07/31/19 19:59 113 26 30 07/31/19 19:27 113 07/31/19 19:00 113 35 108/49 (68) 99 07/31/19 18:30 117 24 107/80 (89) 100 07/31/19 18:00 121 27 122/78 (93) 100 07/31/19 17:30 117 29 126/79 (95) 100 07/31/19 17:00 127 34 143/108 (120) 100 07/31/19 16:15 148/86 07/31/19 16:00 115 07/31/19 16:00 99.5 118 33 137/80 (99) 100 07/31/19 16:00 Mechanical Ventilator 07/31/19 16:00 30 07/31/19 15:23 113 32 30 07/31/19 15:07 112 0 121/69 (86) 100 07/31/19 15:05 114 16 85/69 (74) 100 07/31/19 15:00 118 3 89/60 (70) 100 07/31/19 14:06 111 16 113/72 (86) 100 07/31/19 13:00 118 16 97/65 (76) 100 07/31/19 12:19 106 26 100 Mechanical Ventilator 30 106 38 30 07/31/19 12:09 108 26 124/69 (87) 100 07/31/19 12:00 Mechanical Ventilator 07/31/19 12:00 108 07/31/19 12:00 30 07/31/19 12:00 99.2 111 23 124/78 (93) 100 07/31/19 11:00 108 12 104/69 (81) 100 07/31/19 10:00 110 5 108/67 (81) 100 Intake and Output 07/31/19 08/01/19 19:00 07:00 Intake Total 670 ml 640 ml Output Total 250 ml 200 ml Balance 420 ml 440 ml Free Water 30 ml IV Total 100 ml Tube Feeding 540 ml 540 ml Other 100 ml Output Urine Total 0 ml 0 ml Stool Total 250 ml 200 ml Hemodialysis UF 0 ml Laboratory Tests 08/01/19 04:18: Random Vancomycin Level 17.9 Height (Feet): 6 Height (Inches): 1.00 Weight (Pounds): 155 Karishma Mulligan MD Aug 01, 2019 09:37
--- NOTE | 2019-08-01 11:18 | Nephrology Progress Note ---
Assessment/Plan Problem List: (1) CASSANDRA (acute kidney injury) (2) Anemia in chronic kidney disease (CKD) (3) HTN (hypertension) (4) COVID-19 Assessment Acute renal failure most likely superimposed on chronic kidney disease Suspected COVID-19 virus infection Possible Pneumonia, lymphopenia, elevated AST Cardiomegaly, possible CHF COPD Hypertension Anemia, most likely related to chronic kidney disease Plan July 31: Dialyzed yesterday. No can panel today. Remains full code. Remains on ventilator. Being fed through PEG. Continue per consultants. July 30: Patient due for dialysis today. Labs are reviewed. Remains full code. Status post trach to ventilator. Status post PEG. July 29: Patient dialyzed yesterday. Due for dialysis tomorrow. Remains in ICU. Full code. Status post trach tube to ventilator. Status post PEG. July 28: Due for dialysis today. Labs reviewed. Full code. Patient trached and vented. July 27: Last COVID test negative. COVID test will be repeated tomorrow. Will order dialysis tomorrow. Remains full code. Medication list and labs reviewed. July 26: No labs done today. Dialysis done yesterday. Will check lab tomorrow. Dialysis as needed. July 25: Lab reviewed. Dialysis today. Discussed with RN. July 24: Lab reviewed. Do dialysis tomorrow. Discussed with RN. July 23: Lab reviewed. Dialyzed yesterday. Discussed with RN. Remains full code. Next dialysis July 25. Will check labs tomorrow. July 22: Labs reviewed. Due for dialysis today. Discussed with RN. Watch borderline low blood pressure. Discussed with dialysis nurse. July 21: Today's lab reviewed. Will arrange for dialysis tomorrow. Discussed with RN. Aim to keep the blood pressure above 100 systolic. Continue per consultants. July 20: Patient was dialyzed yesterday. Could not ultrafiltrate much due to low blood pressure. Discussed with SHANIQUE Dick today. No labs drawn today. Continue per consultants. July 19: Due for dialysis today. Discussed with SHANIQUE Dick. Continue per consultants. July 18: Dialyzed July 16. Will order dialysis tomorrow July 19. Continues to be on ventilator through trach. No labs done today. Continue per consultants. July 17: Dialyzed yesterday. Stable from renal standpoint of view. Remains full code. Status post trach on vent. Status post PEG. Continue per consultants. July 16: Dialysis today. Will resume Midodrin to prevent hypotension. Patient remains full code. July 15: Dialyzed yesterday, due for dialysis tomorrow. Labs and medication list reviewed. Continue per consultants. Patient remains full code. COVID-19 detected again. July 14: Patient currently on dialysis. This is continuation of dialysis from yesterday as yesterday's dialysis was cut short due to catheter malfunction. Labs and medication reviewed. Continue per consultants. July 13: Patient currently on hemodialysis. The dialysis catheter which is a intrajugular Kamlesh has poor flow. Will try TPA. Continue per consultants. July 12: Due for PEG today. Due for dialysis tomorrow. Continue per consultants. Discussed with RN. July 11: Plan for dialysis today. Discussed with RN. Data reviewed. July 10: Plan for dialysis tomorrow July 11. Waiting for consent to proceed with PEG. Continue per consultants. Medication reviewed. Labs reviewed. Discussed with RN. July 09: Dialyzed yesterday. Labs reviewed. Medication reviewed. Next hemodialysis July 11. July 08: Patient has tracheostomy now. Connected to ventilator. Due for dialysis today. Continue per consultants. Discussed with SHANIQUE Romero. July 07: Patient is due for tracheostomy today. Patient was last dialyzed July 05. Will order dialysis for tomorrow. July 06: Patient is intubated on ventilator however the plan is to extubate today. Patient was dialysis yesterday July 05. The dialysis time was cut short due to patient's respiratory distress. Only 1 L was removed during dialysis yesterday. Today's lab reviewed. Continue per consultants. Will arrange for dialysis as needed. July 05: Patient due for dialysis today. Remains intubated. Will schedule permacath placement in a.m. blood cultures on July 04 are negative. July 04: Patient was dialyzed yesterday. Due for dialysis tomorrow. Continues to be intubated. After tomorrow's dialysis will order a permacath. July 03: Dialysis is about to be started now Continues to be intubated Will plan to remove the femoral dialysis catheter and exchanged for a new temporary catheter per ID recommendation We will check surveillance blood culture tomorrow July 02: Patient was dialyzed yesterday and due for dialysis tomorrow Stable from renal standpoint W on dialysis Continue per consultants, weaning....... etc. July 01: Dialysis today Other status unchanged June 30: Due for dialysis tomorrow Remains intubated on ventilator Labs and medication reviewed Discussed with RN Stable from renal standpoint of view June 29: Dialyzed yesterday Due for dialysis tomorrow Stable from renal standpoint to view Keeps failing weaning process June 28: Patient due for dialysis today Stable from renal standpoint to view Continue per consultants June 27: Labs reviewed Due due for dialysis June 28 Discussed with SHANIQUE Dick Continue per consultants Remains intubated on ventilator June 26 Labs reviewed Dialyzed yesterday Started on weaning today Continue to monitor renal parameters June 25: On dialysis now Potassium supplement implemented Continue per consultants Next dialysis June 27June 15: Status unchanged Dialyzed yesterday will dialyze again tomorrow Potassium supplements given Discussed with RN June 23: Due dialysis today Status: Remains intubated on ventilator June 22: Status unchanged Dialyzed yesterday and duefordialysistomorrow Serum sodium stable today June 21 Remains intubated on ventilator Due dialysis today Emphasized high sodium bath for dialysis June 20: Remains intubated on ventilator Dialyzed June 19 next dialysis June 21 Serum sodium 128, will give 250 cc 3% saline Remains full code Discussed with RN Iron panel ordered June 19: Discussed with RN. Patient due for dialysis today. Continue pulmonary support. Remains full code. June 18: Patient dialyzed yesterday June 17 Serum sodium improved but still low Arrange for dialysis tomorrow June 19 Continue per consultants June 17: Due for dialysis today Today's lab reviewed, low serum sodium noted, Emphasized on high sodium bath to dialysis nurse Discussed with SHANIQUE Yuen June 16: Dialyzed yesterday Remains intubated Labs reviewed, serum sodium 131 Plan to dialyze tomorrow June 17 with high sodium bath Discussed with SHANIQUE Yuen June 15: Due for dialysis today Labs reviewed Discussed with RN Transfuse 1 unit of packed RBCs today for low hemoglobin of 7.1 June 5: Blood pressure well maintained Receive dialysis June 13 next hemodialysis June 15June 4: Discussed with RN in ICU Patient did not receive proper dialysis yesterday due to dialysis catheter malfunction Catheter to be adjusted today and dialyzed to be resumed today Continue per consultants Positive for COVID 28 June 2: Patient now intubated on mechanical ventilation Discussed with SHANIQUE Yuen, today June 12 Patient received dialysis yesterday June 10 next hemodialysis May 3 Blood pressure better maintained Today's labs reviewed Continue per consultants Previously patient received dialysis last evening June 05, next dialysis June 07 which was incomplete due to patient's hypotension Will start on midodrine for blood pressure support. Meanwhile continue other pressors as needed Previously Patient is doing poorly, septic, white blood cells are rising, Hypotension somewhat improved We will keep n.p.o. , NG tube for medications, and change medication to IV as needed Patient remains full code Monitor vancomycin level Previously: Patient pulled out his femoral catheter yesterday June 03 which was reinserted by Dr. Mast Patient scheduled for dialysis again June 04, which again was not done due to dialysis nurse citing catheter malfunction Meanwhile continue management per ID, pulmonary , and psych. Meanwhile white blood cell count is rising. Patient blood pressure borderline low. Will check ABG Previously May 31 : I believe patient need dialysis treatment He however needs to competency assessment if can make decisions or not I will communicate with Dr. Mulligan Previously: Per pulmonary and ID advice Adjust blood pressure medication Renal diet Anemia work-up 2D echocardiogram refused Kidney ultrasound refused Jules catheter Urine studies Per orders Subjective ROS Limited/Unobtainable: Yes Objective Objective Last 24 Hour Vital Signs Date Time Temp Pulse Resp B/P (MAP) Pulse Ox O2 Delivery O2 Flow Rate FiO2 08/01/19 10:00 111 35 117/70 (86) 100 08/01/19 09:00 110 34 124/75 (91) 100 08/01/19 08:30 30 08/01/19 08:22 102 36 30 08/01/19 08:19 100 26 100 Mechanical Ventilator 30 98 26 30 08/01/19 08:00 100.4 107 25 104/67 (79) 100 08/01/19 08:00 106 08/01/19 08:00 Mechanical Ventilator 08/01/19 08:00 30 08/01/19 07:00 109 14 118/78 (91) 100 08/01/19 06:30 113 23 120/78 (92) 100 08/01/19 06:30 113 23 08/01/19 06:00 116 21 131/72 (91) 100 08/01/19 05:00 115 18 132/89 (103) 100 08/01/19 04:00 Mechanical Ventilator 08/01/19 04:00 99.1 114 26 118/81 (93) 100 08/01/19 04:00 30 6/21/20 03:12 118 27 30 08/01/19 03:00 113 08/01/19 03:00 113 26 108/71 (83) 100 08/01/19 02:00 113 26 116/72 (87) 100 08/01/19 01:00 118 26 143/78 (99) 100 08/01/19 00:00 30 08/01/19 00:00 Mechanical Ventilator 08/01/19 00:00 97.4 113 26 112/68 (83) 100 08/01/19 00:00 113 07/31/19 23:00 109 26 104/70 (81) 100 07/31/19 23:00 121 26 30 07/31/19 22:30 108 26 115/72 (86) 100 07/31/19 22:00 113 26 130/82 (98) 99 07/31/19 21:00 116 18 124/80 (95) 100 07/31/19 20:30 114 23 122/75 (91) 98 07/31/19 20:00 30 07/31/19 20:00 99.5 113 26 127/79 (95) 100 07/31/19 20:00 Mechanical Ventilator 07/31/19 19:59 113 26 30 07/31/19 19:27 113 07/31/19 19:00 113 35 108/49 (68) 99 07/31/19 18:30 117 24 107/80 (89) 100 07/31/19 18:00 121 27 122/78 (93) 100 07/31/19 17:30 117 29 126/79 (95) 100 07/31/19 17:00 127 34 143/108 (120) 100 07/31/19 16:15 148/86 07/31/19 16:00 115 07/31/19 16:00 99.5 118 33 137/80 (99) 100 07/31/19 16:00 Mechanical Ventilator 07/31/19 16:00 30 07/31/19 15:23 113 32 30 07/31/19 15:07 112 0 121/69 (86) 100 07/31/19 15:05 114 16 85/69 (74) 100 07/31/19 15:00 118 3 89/60 (70) 100 07/31/19 14:06 111 16 113/72 (86) 100 07/31/19 13:00 118 16 97/65 (76) 100 07/31/19 12:19 106 26 100 Mechanical Ventilator 30 106 38 30 07/31/19 12:09 108 26 124/69 (87) 100 07/31/19 12:00 Mechanical Ventilator 07/31/19 12:00 108 07/31/19 12:00 30 07/31/19 12:00 99.2 111 23 124/78 (93) 100 Intake and Output 07/31/19 08/01/19 19:00 07:00 Intake Total 670 ml 640 ml Output Total 250 ml 200 ml Balance 420 ml 440 ml Free Water 30 ml IV Total 100 ml Tube Feeding 540 ml 540 ml Other 100 ml Output Urine Total 0 ml 0 ml Stool Total 250 ml 200 ml Hemodialysis UF 0 ml Laboratory Tests 08/01/19 04:18: Random Vancomycin Level 17.9 No can panel done today Height (Feet): 6 Height (Inches): 1.00 Weight (Pounds): 155 General Appearance: no apparent distress EENT: other Cardiovascular: tachycardia Respiratory/Chest: decreased breath sounds Abdomen: soft, distended Objective No change Mic Cole MD Aug 01, 2019 11:18
--- NOTE | 2019-08-01 11:40 | Infectious Diseases Prog Note ---
Assessment/Plan Assessment/Plan IMPRESSION: 1. COVID19 pneumonia Positive: 05/27, 05/31 , 06/05, 06/09 ,06/17, 06/19, 06/23, 06/27, 07/03, 07/15, 07/29 Negative: 07/26 2. MRSA carrier. 3. Chronic kidney disease , end-stage renal disease. 4. COPD. 5. Hypertension. 6. Anemia. 7. Hypothyroidism. 8. Hyperlipidemia. 9. Major depression. 10. Leukocytosis 11. Hypotension 12. Hepatitis C 13. Hyperuricemia 14. Diarrhea 15. septic shock 16. Leukocytosis improving 17. Pneumonia with Staph aureus ( MRSA) 18. Bacteremia with Staph coagulase negative RECOMMENDATIONS: Continue IV Vancomycin Repeat CXR, f/u WBC Case was D/W RN Subjective ROS Limited/Unobtainable: Yes Constitutional: Reports: fever, other - T=100.4 Allergies: Coded Allergies: No Known Allergies (Unverified , 05/28/19) Objective Vital Signs Last 24 Hour Vital Signs Date Time Temp Pulse Resp B/P (MAP) Pulse Ox O2 Delivery O2 Flow Rate FiO2 08/01/19 11:22 100 08/01/19 11:19 121 32 30 08/01/19 10:00 111 35 117/70 (86) 100 08/01/19 09:00 110 34 124/75 (91) 100 08/01/19 08:30 30 08/01/19 08:22 102 36 30 08/01/19 08:19 100 26 100 Mechanical Ventilator 30 98 26 30 08/01/19 08:00 100.4 107 25 104/67 (79) 100 08/01/19 08:00 106 08/01/19 08:00 Mechanical Ventilator 08/01/19 08:00 30 08/01/19 07:00 109 14 118/78 (91) 100 08/01/19 06:30 113 23 120/78 (92) 100 08/01/19 06:30 113 23 08/01/19 06:00 116 21 131/72 (91) 100 08/01/19 05:00 115 18 132/89 (103) 100 08/01/19 04:00 Mechanical Ventilator 08/01/19 04:00 99.1 114 26 118/81 (93) 100 08/01/19 04:00 30 08/01/19 03:12 118 27 30 08/01/19 03:00 113 08/01/19 03:00 113 26 108/71 (83) 100 08/01/19 02:00 113 26 116/72 (87) 100 08/01/19 01:00 118 26 143/78 (99) 100 08/01/19 00:00 30 08/01/19 00:00 Mechanical Ventilator 08/01/19 00:00 97.4 113 26 112/68 (83) 100 08/01/19 00:00 113 07/31/19 23:00 109 26 104/70 (81) 100 07/31/19 23:00 121 26 30 07/31/19 22:30 108 26 115/72 (86) 100 07/31/19 22:00 113 26 130/82 (98) 99 07/31/19 21:00 116 18 124/80 (95) 100 07/31/19 20:30 114 23 122/75 (91) 98 07/31/19 20:00 30 07/31/19 20:00 99.5 113 26 127/79 (95) 100 07/31/19 20:00 Mechanical Ventilator 07/31/19 19:59 113 26 30 07/31/19 19:27 113 07/31/19 19:00 113 35 108/49 (68) 99 07/31/19 18:30 117 24 107/80 (89) 100 07/31/19 18:00 121 27 122/78 (93) 100 07/31/19 17:30 117 29 126/79 (95) 100 07/31/19 17:00 127 34 143/108 (120) 100 07/31/19 16:15 148/86 07/31/19 16:00 115 07/31/19 16:00 99.5 118 33 137/80 (99) 100 07/31/19 16:00 Mechanical Ventilator 07/31/19 16:00 30 07/31/19 15:23 113 32 30 07/31/19 15:07 112 0 121/69 (86) 100 07/31/19 15:05 114 16 85/69 (74) 100 07/31/19 15:00 118 3 89/60 (70) 100 07/31/19 14:06 111 16 113/72 (86) 100 07/31/19 13:00 118 16 97/65 (76) 100 07/31/19 12:19 106 26 100 Mechanical Ventilator 30 106 38 30 07/31/19 12:09 108 26 124/69 (87) 100 07/31/19 12:00 Mechanical Ventilator 07/31/19 12:00 108 07/31/19 12:00 30 07/31/19 12:00 99.2 111 23 124/78 (93) 100 Height (Feet): 6 Height (Inches): 1.00 Weight (Pounds): 155 HEENT: status post trach Respiratory/Chest: other - on ventilator Cardiovascular: tachycardia, other - Permacath Abdomen: soft, non tender, other - GT feeding, rectal tube Extremities: no edema Neurologic/Psychiatric: disoriented Microbiology Date/Time Source Procedure Growth Status 07/30/19 05:00 Nasopharynx Coronavirus COVID-19 PCR ([facility]) - Final Complete Laboratory Tests Test 08/01/19 04:18 Random Vancomycin Level 17.9 ug/mL Current Medications Medications (Trade) Dose Ordered Sig/Anthony Route PRN Reason Start Time Stop Time Status Last Admin Dose Admin Acetaminophen (Tylenol) 650 mg Q4H PRN NG For Pain 07/11/19 08:00 08/10/19 07:59 07/28/19 08:09 Albuterol Sulfate (Proventil MDI) 2 puff Q4HRT INH 06/06/19 23:00 08/30/19 18:59 08/01/19 08:19 Chlorhexidine Gluconate (Michelle-Hex 2%) 1 applic DAILY@2000 TOPIC 06/07/19 20:00 09/05/19 19:59 07/31/19 19:36 Dextrose (Dextrose 50%) 25 ml Q30M PRN IV Hypoglycemia 06/20/19 19:30 09/18/19 19:29 Dextrose (Dextrose 50%) 50 ml Q30M PRN IV Hypoglycemia 06/20/19 19:30 09/18/19 19:29 Dopamine HCl/ Dextrose 250 ml @ 0 mls/hr Q24H PRN IV For hypotension 06/13/19 08:15 09/11/19 08:14 07/17/19 08:46 Enoxaparin Sodium (Lovenox) 30 mg DAILY SUBQ 06/07/19 09:00 08/27/19 08:59 08/01/19 08:03 Epoetin Aftab (Epoetin Aftab(ESRD on dialysis)) 10,000 unit FRI-FRI-FRI SUBQ 06/07/19 21:00 08/31/19 20:59 07/30/19 20:50 Fentanyl Citrate 250 ml @ 0 mls/hr Q24H IV 07/19/19 14:06 10/17/19 14:05 07/28/19 21:16 Haloperidol Lactate 5 mg/ Dextrose 56 ml @ 224 mls/hr Q6H PRN IVPB Agitation 07/11/19 15:00 08/25/19 14:59 07/30/19 23:26 Hydralazine HCl (Apresoline) 10 mg Q4H PRN IV Blood pressure over 160 systol 06/07/19 10:15 09/05/19 10:14 Insulin Aspart (NovoLOG) EVERY 6 HOURS SUBQ 06/21/19 00:00 09/19/19 00:00 08/01/19 05:45 Metoclopramide HCl (Reglan) 5 mg Q8HR IVP 07/29/19 18:00 08/28/19 17:59 08/01/19 05:43 Midodrine (Pro-Amatine) 10 mg Q8HR NG 07/29/19 14:00 10/15/19 10:29 08/01/19 05:44 Norepinephrine Bitartrate 8 mg/ Sodium Chloride 250 ml @ 0 mls/hr Q24H IV 07/23/19 16:15 08/22/19 16:14 07/24/19 17:41 Pantoprazole (Protonix) 40 mg DAILY IVP 07/27/19 09:00 08/26/19 08:59 08/01/19 08:01 Vancomycin HCl (Vanco pharmacy to dose) 1 ea DAILY PRN MISC Per rx protocol 07/20/19 10:45 08/19/19 10:44 Ted Leyva MD Aug 01, 2019 11:40
[2019-08-01] MEDS: fentaNYL 2500mcg/NS 250ml 250 ML IV SCH (13:03)
--- NOTE | 2019-08-01 15:09 | Surgery Progress Note ---
Surgery Progress Note Subjective Procedure Performed Left internal jugular temporary hemodialysis catheter removal Additional Comments persistent leukocytosis discussed with ID Objective Last 24 Hour Vital Signs Date Time Temp Pulse Resp B/P (MAP) Pulse Ox O2 Delivery O2 Flow Rate FiO2 08/01/19 14:44 117 26 100 Mechanical Ventilator 30 117 26 30 08/01/19 14:00 118 19 121/76 (91) 100 08/01/19 13:00 110 17 127/71 (89) 100 08/01/19 12:00 Mechanical Ventilator 08/01/19 12:00 122 08/01/19 12:00 98.8 115 26 104/70 (81) 99 08/01/19 11:22 100 08/01/19 11:19 121 32 30 08/01/19 11:15 30 08/01/19 11:00 127 36 122/77 (92) 100 08/01/19 10:00 111 35 117/70 (86) 100 08/01/19 09:00 110 34 124/75 (91) 100 08/01/19 08:30 30 08/01/19 08:22 102 36 30 08/01/19 08:19 100 26 100 Mechanical Ventilator 30 98 26 30 08/01/19 08:00 100.4 107 25 104/67 (79) 100 08/01/19 08:00 106 08/01/19 08:00 Mechanical Ventilator 08/01/19 08:00 30 08/01/19 07:00 109 14 118/78 (91) 100 08/01/19 06:30 113 23 120/78 (92) 100 08/01/19 06:30 113 23 08/01/19 06:00 116 21 131/72 (91) 100 08/01/19 05:00 115 18 132/89 (103) 100 08/01/19 04:00 Mechanical Ventilator 08/01/19 04:00 99.1 114 26 118/81 (93) 100 08/01/19 04:00 30 08/01/19 03:12 118 27 30 08/01/19 03:00 113 08/01/19 03:00 113 26 108/71 (83) 100 08/01/19 02:00 113 26 116/72 (87) 100 08/01/19 01:00 118 26 143/78 (99) 100 08/01/19 00:00 30 08/01/19 00:00 Mechanical Ventilator 08/01/19 00:00 97.4 113 26 112/68 (83) 100 08/01/19 00:00 113 07/31/19 23:00 109 26 104/70 (81) 100 07/31/19 23:00 121 26 30 07/31/19 22:30 108 26 115/72 (86) 100 07/31/19 22:00 113 26 130/82 (98) 99 07/31/19 21:00 116 18 124/80 (95) 100 07/31/19 20:30 114 23 122/75 (91) 98 07/31/19 20:00 30 07/31/19 20:00 99.5 113 26 127/79 (95) 100 07/31/19 20:00 Mechanical Ventilator 07/31/19 19:59 113 26 30 07/31/19 19:27 113 07/31/19 19:00 113 35 108/49 (68) 99 07/31/19 18:30 117 24 107/80 (89) 100 07/31/19 18:00 121 27 122/78 (93) 100 07/31/19 17:30 117 29 126/79 (95) 100 07/31/19 17:00 127 34 143/108 (120) 100 07/31/19 16:15 148/86 07/31/19 16:00 115 07/31/19 16:00 99.5 118 33 137/80 (99) 100 07/31/19 16:00 Mechanical Ventilator 07/31/19 16:00 30 07/31/19 15:23 113 32 30 I&O Intake and Output 07/31/19 08/01/19 19:00 07:00 Intake Total 670 ml 640 ml Output Total 250 ml 200 ml Balance 420 ml 440 ml Free Water 30 ml IV Total 100 ml Tube Feeding 540 ml 540 ml Other 100 ml Output Urine Total 0 ml 0 ml Stool Total 250 ml 200 ml Hemodialysis UF 0 ml Dressing: other Wound: other Drains: other Cardiovascular: RSR, other Respiratory: decreased breath sounds Abdomen: soft, non-tender, present bowel sounds, non-distended Extremities: no tenderness, no cyanosis, other Laboratory Tests Test 08/01/19 04:18 Random Vancomycin Level 17.9 ug/mL Plan Problems: (1) Suspected COVID-19 virus infection (2) HTN (hypertension) (3) CASSANDRA (acute kidney injury) Assessment & Plan: Needs urgent HD needs access patient okay and consented see note will follow with recs new line placed discussed with team and nephrology HD line functional when checked has TPA now please use appropriately Cathflo used again this flow during dialysis on 430 was low. Will monitor may need line change 5/4 plan for HD as per renal may need to take fluid off with HD edema anasarca dressings saturated and changed will monitor cont with HD IJ left line placed for HD given extent of prior line in place. leukocytosis blood cx negative may need to change out line new line okay HD going well Continue HD as tolerated May need pressors for HD as needed (4) Anemia in chronic kidney disease (CKD) (5) Anemia (6) Renal failure (7) Suspected COVID-19 virus infection Assessment & Plan: Pt deconditioned and despite all skin preventions Pt noted to have developed several pressure injuries. . Stable dry eschar noted to clefts of R and L ears. No erythema noted . DTPI noted to L trochanter. Base of injury is maroon in colour with marginal erythema along borders. Partially opened DTPI Sacrum, R and L Buttocks. Base of wound is maroon with two small open wounds L sacrum and L buttocks. Pt has an APM/MOMO Mattress overlay and is being positioned with pillows as per tolerance and within protocols. worsening despite medical efforts will cont to provide therapy Tx.Plan: Apply Cavilon Skin Barrier to both ears Daily and prn. Apply Moisture Barrier Paste to Sacrum,R and L Buttocks. Cover with Optifoam drsgs. Change every 3 days and PRN. Apply Cavilon Skin Barrier to R and L trochanter. Cover each site with Optifoam drsgs.Change every 7 days and PRN. Apply Cavilon Skin Barrier to both heels. Cover each heel with Optifoam drsg. Change every 7 days and prn. Off-load heels with pillow. Reposition at least every 2hours or as tolerated. APM/MOMO Mattress overlay. (8) COVID-19 Assessment & Plan: COVID + c diff negative febrile leukocytosis renal insufficiency see above cont resp care Rx as per ID worsening on vent support now cxr noted on pressors prognosis guarded repeat covid ++ weaning vent and pressors off slowly showing improvement slowly recovering will need trach as unable to wean vent safely called and spoke with country conservatorship. consent obtained s/p trach pending peg worsening on levo max (9) Sepsis Assessment & Plan: worsening leukocytosis febrile on pressors discussed with ID. lines evaluated and clean. he is septic on pressors and needs central access in difficult venous access patient blood cultures negative will monitor temp HD cath out now with permacath left tlc still subclavian needed line c/d/i Yaniv Mast Aug 01, 2019 15:09
[2019-08-01] MEDS: Dyna-Hex 2% Top Sol 2oz TOPIC SCH (19:54)
[2019-08-01] MEDS: Acetaminophen 650mg/20.3ml NG PRN (19:55)
--- NOTE | 2019-08-01 21:04 | General Progress Note ---
Assessment/Plan Status: progressing, unchanged, deteriorating Assessment/Plan: Assessment/Plan Assessment/Plan: 1. Diabetes. 2. Hypertension. 3. Coronary artery disease. 4. COPD. 5. Psychiatric disorder with schizophrenia. 6. History of hepatitis C. 7. HLP. 8. Chronic kidney disease, now with acute renal failure. 9. Anemia. 10. Hypothyroidism. 11. Spinal stenosis. 12. Constipation. 13. GERD. 14. COVID positive 15. Dysphagia, GT HD per nephrology fu labs icu care s/p PEG GT Feeds as tolerated monitor for residuals Subjective Allergies: Coded Allergies: No Known Allergies (Unverified , 05/28/19) Subjective Above noted patient tolerating TF (+) BM Objective Last 24 Hour Vital Signs Date Time Temp Pulse Resp B/P (MAP) Pulse Ox O2 Delivery O2 Flow Rate FiO2 08/01/19 20:06 127 28 100 Mechanical Ventilator 30 126 26 30 08/01/19 20:00 128 08/01/19 20:00 100.2 129 30 131/76 (94) 100 08/01/19 20:00 Mechanical Ventilator 08/01/19 20:00 30 08/01/19 19:00 129 35 124/82 (96) 100 08/01/19 18:00 120 20 123/80 (94) 100 08/01/19 17:00 111 19 113/78 (90) 100 08/01/19 16:00 30 08/01/19 16:00 108 08/01/19 16:00 98.7 111 13 114/71 (85) 100 08/01/19 16:00 Mechanical Ventilator 08/01/19 15:57 109/71 08/01/19 15:00 113 10 94/67 (76) 100 08/01/19 14:44 117 26 100 Mechanical Ventilator 30 117 26 30 08/01/19 14:00 118 19 121/76 (91) 100 08/01/19 13:00 110 17 127/71 (89) 100 08/01/19 12:00 Mechanical Ventilator 08/01/19 12:00 122 08/01/19 12:00 30 08/01/19 12:00 98.8 115 26 104/70 (81) 99 08/01/19 11:22 100 08/01/19 11:19 121 32 30 08/01/19 11:15 30 08/01/19 11:00 127 36 122/77 (92) 100 08/01/19 10:00 111 35 117/70 (86) 100 08/01/19 09:00 110 34 124/75 (91) 100 08/01/19 08:30 30 08/01/19 08:22 102 36 30 08/01/19 08:19 100 26 100 Mechanical Ventilator 30 98 26 30 08/01/19 08:00 100.4 107 25 104/67 (79) 100 08/01/19 08:00 106 08/01/19 08:00 Mechanical Ventilator 08/01/19 08:00 30 08/01/19 07:00 109 14 118/78 (91) 100 08/01/19 06:30 113 23 120/78 (92) 100 08/01/19 06:30 113 23 08/01/19 06:00 116 21 131/72 (91) 100 08/01/19 05:00 115 18 132/89 (103) 100 08/01/19 04:00 Mechanical Ventilator 08/01/19 04:00 99.1 114 26 118/81 (93) 100 08/01/19 04:00 30 08/01/19 03:12 118 27 30 08/01/19 03:00 113 08/01/19 03:00 113 26 108/71 (83) 100 08/01/19 02:00 113 26 116/72 (87) 100 08/01/19 01:00 118 26 143/78 (99) 100 08/01/19 00:00 30 08/01/19 00:00 Mechanical Ventilator 08/01/19 00:00 97.4 113 26 112/68 (83) 100 08/01/19 00:00 113 07/31/19 23:00 109 26 104/70 (81) 100 07/31/19 23:00 121 26 30 07/31/19 22:30 108 26 115/72 (86) 100 07/31/19 22:00 113 26 130/82 (98) 99 Intake and Output 07/31/19 08/01/19 19:00 07:00 Intake Total 670 ml 640 ml Output Total 250 ml 200 ml Balance 420 ml 440 ml Free Water 30 ml IV Total 100 ml Tube Feeding 540 ml 540 ml Other 100 ml Output Urine Total 0 ml 0 ml Stool Total 250 ml 200 ml Hemodialysis UF 0 ml Laboratory Tests 08/01/19 04:18: Random Vancomycin Level 17.9 Height (Feet): 6 Height (Inches): 1.00 Weight (Pounds): 155 Objective Patient seen in ICU resting comfortably (+) Trach (+) GT Rod Mina MD Aug 01, 2019 21:04
--- NOTE | 2019-08-01 23:29 | Pulmonolgy Critical Care Note ---
Critical Care - Asmt/Plan Assessment/Plan: Pulmonary CCM Progress Note HPI: Patient is a 68 year old man, senior living resident, admitted c/o shortness of breath, cough, noted to have Covid 19 Pneumonia, Respiratory Failure Remains on Ventilator, CXR infiltrates stable, not tolerating weaning CKD on HD - on Mitodrine, not tolerating weaning, will need eventual placement, second repeat COVID19 test positive Preserved EF FIO2 30%, P5, adequate O2 sats, remains on ACVC, s/p Tracheostomy previously, sp PEG, sp Permacath ID following Seen earlier on 07/31/2019 Past Medical History: COPD, CKD, Hypertension, Anemia Allergies: No Known Allergies Improving Pulmonary Status on HD Physical Exam Vital Signs Noted Stable on ventilator Chronically ill appearing Deferred Covid19 Impression: COVID-19 virus infection Pneumonia Respiratory failure on ventilator, wean as tolerated once off pressors CKD - on HD Hypotension on pressors previously Cardiomegaly Lymphopenia Elevated AST COPD Chronic Kidney Disease - HD H/o Hypertension Worsening anemia Plan: SP Tracheostomy / G tube Antibiotics per ID HD Pressors PRN ACVC - wean as 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 Monitor cultures/viral studies PPX Hemodialysis per Renal Psychiatry following Laboratory Tests Noted: CXR: Hypoventilatory exam, interstitial changes, cardiomegaly, improving infiltrates Subjective ROS Limited/Unobtainable: No Constitutional: Denies: fever Respiratory: Reports: dry cough, shortness of breath Gastrointestinal/Abdominal: Reports: diarrhea, other - colace was stopped Psychiatric: Reports: other - refuses labs Allergies: Coded Allergies: No Known Allergies (Unverified , 05/28/19) All Systems: reviewed and negative except above Labs noted Critical Care - Objective Last 24 Hour Vital Signs Date Time Temp Pulse Resp B/P (MAP) Pulse Ox O2 Delivery O2 Flow Rate FiO2 08/01/19 23:00 120 24 125/82 (96) 100 08/01/19 22:00 117 26 123/74 (90) 100 08/01/19 21:00 121 26 118/72 (87) 100 08/01/19 20:06 127 28 100 Mechanical Ventilator 30 126 26 30 08/01/19 20:00 128 08/01/19 20:00 100.2 129 30 131/76 (94) 100 08/01/19 20:00 Mechanical Ventilator 08/01/19 20:00 30 08/01/19 19:00 129 35 124/82 (96) 100 08/01/19 18:00 120 20 123/80 (94) 100 08/01/19 17:00 111 19 113/78 (90) 100 08/01/19 16:00 30 08/01/19 16:00 108 08/01/19 16:00 98.7 111 13 114/71 (85) 100 08/01/19 16:00 Mechanical Ventilator 08/01/19 15:57 109/71 08/01/19 15:00 113 10 94/67 (76) 100 08/01/19 14:44 117 26 100 Mechanical Ventilator 30 117 26 30 08/01/19 14:00 118 19 121/76 (91) 100 08/01/19 13:00 110 17 127/71 (89) 100 08/01/19 12:00 Mechanical Ventilator 08/01/19 12:00 122 08/01/19 12:00 30 08/01/19 12:00 98.8 115 26 104/70 (81) 99 08/01/19 11:22 100 08/01/19 11:19 121 32 30 08/01/19 11:15 30 08/01/19 11:00 127 36 122/77 (92) 100 08/01/19 10:00 111 35 117/70 (86) 100 08/01/19 09:00 110 34 124/75 (91) 100 08/01/19 08:30 30 08/01/19 08:22 102 36 30 08/01/19 08:19 100 26 100 Mechanical Ventilator 30 98 26 30 08/01/19 08:00 100.4 107 25 104/67 (79) 100 08/01/19 08:00 106 08/01/19 08:00 Mechanical Ventilator 08/01/19 08:00 30 08/01/19 07:00 109 14 118/78 (91) 100 08/01/19 06:30 113 23 120/78 (92) 100 08/01/19 06:30 113 23 08/01/19 06:00 116 21 131/72 (91) 100 08/01/19 05:00 115 18 132/89 (103) 100 08/01/19 04:00 Mechanical Ventilator 08/01/19 04:00 99.1 114 26 118/81 (93) 100 08/01/19 04:00 30 08/01/19 03:12 118 27 30 08/01/19 03:00 113 08/01/19 03:00 113 26 108/71 (83) 100 08/01/19 02:00 113 26 116/72 (87) 100 08/01/19 01:00 118 26 143/78 (99) 100 08/01/19 00:00 30 08/01/19 00:00 Mechanical Ventilator 08/01/19 00:00 97.4 113 26 112/68 (83) 100 08/01/19 00:00 113 Micro: Microbiology Date/Time Source Procedure Growth Status 07/30/19 05:00 Nasopharynx Coronavirus COVID-19 PCR ([facility]) - Final Complete Accucheck: 201 Critical Care - Subjective ROS Limited/Unobtainable: Yes Condition: stable IV Access: central FI02: 30 Vent Support Breath Rate: 26 Vent Support Mode: AC Vent Tidal Volume: 500 Sputum Amount: Moderate PEEP: 5.0 PIP: 36 Tube Feeding Amount: 45 I&O: Intake and Output 07/31/19 08/01/19 19:00 07:00 Intake Total 670 ml 640 ml Output Total 250 ml 200 ml Balance 420 ml 440 ml Free Water 30 ml IV Total 100 ml Tube Feeding 540 ml 540 ml Other 100 ml Output Urine Total 0 ml 0 ml Stool Total 250 ml 200 ml Hemodialysis UF 0 ml ET-Tube: 7.5 ET Position: 24 Arturo Mckeon MD Aug 01, 2019 23:29
[2019-08-02] VITALS (26 sets, daily range): BP systolic 91–162; BP diastolic 61–87
[2019-08-02] MEDS: LORazepam Inj 2mg/ml 1ml IV PRN ×3 (02:26→23:48)
[2019-08-02] MEDS: Albuterol 90mcg Inhaler 8gm INH SCH ×6 (03:33→23:00)
[2019-08-02] MEDS: Midodrine 10mg tab NG SCH ×3 (05:16→20:18)
[2019-08-02] MEDS: Metoclopramide 10mg/2ml Inj IVP SCH ×3 (05:16→20:18)
[2019-08-02] MEDS: NovoLOG Insulin Flexpen SUBQ SCH ×4 (05:36→23:49)
[2019-08-02 06:16] LABS: BASOPHILS % (AUTO) 0.5 % (0.0-2.0); EOSINOPHILS % (AUTO) 2.2 % (0.0-3.0); HEMOGLOBIN 9.8 G/DL (14.2-18.0); LYMPHOCYTES % (AUTO) 12.6 % (20.0-45.0); MEAN CORPUSCULAR VOLUME 97 FL (80-99); MONOCYTES % (AUTO) 5.3 % (1.0-10.0); NEUTROPHILS % (AUTO) 79.4 % (45.0-75.0); PLATELET COUNT 403 K/UL (150-450); RED CELL DISTRIBUTION WIDTH 18.3 % (11.6-14.8); WHITE BLOOD COUNT 15.5 K/UL (4.8-10.8)
[2019-08-02 06:51] LABS: ALBUMIN 2.9 G/DL (3.4-5.0); ALBUMIN/GLOBULIN RATIO 0.5 (1.0-2.7); ALKALINE PHOSPHATASE 123 U/L (46-116); ANION GAP 14 mmol/L (5-15); ASPARTATE AMINO TRANSFERASE 21 U/L (15-37); BILIRUBIN,TOTAL 0.3 MG/DL (0.2-1.0); BLOOD UREA NITROGEN 49 mg/dL (7-18); CALCIUM 9.2 MG/DL (8.5-10.1); CARBON DIOXIDE 28 MMOL/L (21-32); CHLORIDE 100 MMOL/L (98-107); CREATININE 7.5 MG/DL (0.55-1.30); PHOSPHORUS 3.7 MG/DL (2.5-4.9); POTASSIUM 2.9 MMOL/L (3.5-5.1); SODIUM 142 MMOL/L (136-145)
[2019-08-02 07:32] LABS: ALANINE AMINOTRANSFERASE 13 U/L (12-78)
[2019-08-02] MEDS: Pantoprazole Inj IVP SCH (08:35)
[2019-08-02] MEDS: Enoxaparin 30mg Inj SUBQ SCH (08:36)
--- NOTE | 2019-08-02 10:22 | Infectious Diseases Prog Note ---
Assessment/Plan Assessment/Plan IMPRESSION: 1. COVID19 pneumonia Positive: 05/27, 05/31 , 06/05, 06/09 ,06/17, 06/19, 06/23, 06/27, 07/03, 07/15, 07/29 Negative: 07/26 2. MRSA carrier. 3. Chronic kidney disease , end-stage renal disease. 4. COPD. 5. Hypertension. 6. Anemia. 7. Hypothyroidism. 8. Hyperlipidemia. 9. Major depression. 10. Leukocytosis 11. Hypotension 12. Hepatitis C 13. Hyperuricemia 14. Diarrhea 15. septic shock 16. Leukocytosis improving 17. Pneumonia with Staph aureus ( MRSA) 18. Bacteremia with Staph coagulase negative RECOMMENDATIONS: Continue IV Vancomycin Will f/u CXR Case was D/W RN Subjective ROS Limited/Unobtainable: Yes Constitutional: Reports: fever, other - last night Neurologic: Reports: confusion, other - on restraint Allergies: Coded Allergies: No Known Allergies (Unverified , 05/28/19) Objective Vital Signs Last 24 Hour Vital Signs Date Time Temp Pulse Resp B/P (MAP) Pulse Ox O2 Delivery O2 Flow Rate FiO2 08/02/19 10:00 111 26 124/78 (93) 99 08/02/19 09:00 105 0 100/65 (77) 98 08/02/19 08:00 30 08/02/19 08:00 99.5 103 17 91/62 (72) 100 08/02/19 08:00 Mechanical Ventilator 08/02/19 07:55 100 08/02/19 07:55 103 08/02/19 07:05 108 26 99 Mechanical Ventilator 30 108 26 30 08/02/19 07:00 104 24 104/69 (81) 100 08/02/19 06:30 108 24 08/02/19 06:00 109 24 111/70 (84) 100 08/02/19 05:00 106 26 101/74 (83) 100 08/02/19 04:00 Mechanical Ventilator 08/02/19 04:00 30 08/02/19 04:00 99.5 112 19 114/70 (85) 99 08/02/19 04:00 112 08/02/19 03:32 111 23 100 Mechanical Ventilator 30 112 26 30 08/02/19 03:00 114 27 121/71 (88) 100 08/02/19 02:00 112 33 134/81 (98) 100 08/02/19 01:00 118 21 105/68 (80) 100 08/02/19 00:00 121 08/02/19 00:00 98.8 119 27 124/79 (94) 100 08/02/19 00:00 Mechanical Ventilator 08/02/19 00:00 30 08/01/19 23:41 119 26 100 Mechanical Ventilator 30 118 26 30 08/01/19 23:00 120 24 125/82 (96) 100 08/01/19 22:00 117 26 123/74 (90) 100 08/01/19 21:00 121 26 118/72 (87) 100 08/01/19 20:06 127 28 100 Mechanical Ventilator 30 126 26 30 08/01/19 20:00 128 08/01/19 20:00 100.2 129 30 131/76 (94) 100 08/01/19 20:00 Mechanical Ventilator 08/01/19 20:00 30 08/01/19 19:00 129 35 124/82 (96) 100 08/01/19 18:00 120 20 123/80 (94) 100 08/01/19 17:00 111 19 113/78 (90) 100 08/01/19 16:00 30 08/01/19 16:00 108 08/01/19 16:00 98.7 111 13 114/71 (85) 100 08/01/19 16:00 Mechanical Ventilator 08/01/19 15:57 109/71 08/01/19 15:00 113 10 94/67 (76) 100 08/01/19 14:44 117 26 100 Mechanical Ventilator 30 117 26 30 08/01/19 14:00 118 19 121/76 (91) 100 08/01/19 13:00 110 17 127/71 (89) 100 08/01/19 12:00 Mechanical Ventilator 08/01/19 12:00 122 08/01/19 12:00 30 08/01/19 12:00 98.8 115 26 104/70 (81) 99 08/01/19 11:22 100 08/01/19 11:19 121 32 30 08/01/19 11:15 30 08/01/19 11:00 127 36 122/77 (92) 100 Height (Feet): 6 Height (Inches): 1.00 Weight (Pounds): 178 HEENT: status post trach Respiratory/Chest: other - on ventilator Cardiovascular: tachycardia Abdomen: soft, non tender, other - GT feeding Extremities: no edema Neurologic/Psychiatric: aphasia Laboratory Tests Test 08/02/19 05:25 White Blood Count 15.5 K/UL (4.8-10.8) H Red Blood Count 3.40 M/UL (4.70-6.10) L Hemoglobin 9.8 G/DL (14.2-18.0) L Hematocrit 33.0 % (42.0-52.0) L Mean Corpuscular Volume 97 FL (80-99) Mean Corpuscular Hemoglobin 28.7 PG (27.0-31.0) Mean Corpuscular Hemoglobin Concent 29.6 G/DL (32.0-36.0) L Red Cell Distribution Width 18.3 % (11.6-14.8) H Platelet Count 403 K/UL (150-450) Mean Platelet Volume 7.3 FL (6.5-10.1) Neutrophils (%) (Auto) 79.4 % (45.0-75.0) H Lymphocytes (%) (Auto) 12.6 % (20.0-45.0) L Monocytes (%) (Auto) 5.3 % (1.0-10.0) Eosinophils (%) (Auto) 2.2 % (0.0-3.0) Basophils (%) (Auto) 0.5 % (0.0-2.0) Sodium Level 142 MMOL/L (136-145) Potassium Level 2.9 MMOL/L (3.5-5.1) L Chloride Level 100 MMOL/L (98-107) Carbon Dioxide Level 28 MMOL/L (21-32) Anion Gap 14 mmol/L (5-15) Blood Urea Nitrogen 49 mg/dL (7-18) H Creatinine 7.5 MG/DL (0.55-1.30) H Estimat Glomerular Filtration Rate 7.3 mL/min (>60) Glucose Level 181 MG/DL (74-106) H Calcium Level 9.2 MG/DL (8.5-10.1) Phosphorus Level 3.7 MG/DL (2.5-4.9) Magnesium Level 2.5 MG/DL (1.8-2.4) H Total Bilirubin 0.3 MG/DL (0.2-1.0) Aspartate Amino Transf (AST/SGOT) 21 U/L (15-37) Alanine Aminotransferase (ALT/SGPT) 13 U/L (12-78) Alkaline Phosphatase 123 U/L (46-116) H C-Reactive Protein, Quantitative 1.8 mg/dL (0.00-0.90) H Pro-B-Type Natriuretic Peptide 13303 pg/mL (0-125) H Total Protein 8.7 G/DL (6.4-8.2) H Albumin 2.9 G/DL (3.4-5.0) L Globulin 5.8 g/dL Albumin/Globulin Ratio 0.5 (1.0-2.7) L Current Medications Medications (Trade) Dose Ordered Sig/Anthony Route PRN Reason Start Time Stop Time Status Last Admin Dose Admin Acetaminophen (Tylenol) 650 mg Q4H PRN NG For Pain 07/11/19 08:00 08/10/19 07:59 08/01/19 19:55 Albuterol Sulfate (Proventil MDI) 2 puff Q4HRT INH 06/06/19 23:00 08/30/19 18:59 08/02/19 07:10 Chlorhexidine Gluconate (Michelle-Hex 2%) 1 applic DAILY@2000 TOPIC 06/07/19 20:00 09/05/19 19:59 08/01/19 19:54 Dextrose (Dextrose 50%) 25 ml Q30M PRN IV Hypoglycemia 06/20/19 19:30 09/18/19 19:29 Dextrose (Dextrose 50%) 50 ml Q30M PRN IV Hypoglycemia 06/20/19 19:30 09/18/19 19:29 Dopamine HCl/ Dextrose 250 ml @ 0 mls/hr Q24H PRN IV For hypotension 06/13/19 08:15 09/11/19 08:14 07/17/19 08:46 Enoxaparin Sodium (Lovenox) 30 mg DAILY SUBQ 06/07/19 09:00 08/27/19 08:59 08/02/19 08:36 Epoetin Aftab (Epoetin Aftab(ESRD on dialysis)) 10,000 unit FRI-FRI-FRI SUBQ 06/07/19 21:00 08/31/19 20:59 07/30/19 20:50 Fentanyl Citrate 250 ml @ 0 mls/hr Q24H IV 07/19/19 14:06 10/17/19 14:05 07/28/19 21:16 Haloperidol Lactate 5 mg/ Dextrose 56 ml @ 224 mls/hr Q6H PRN IVPB Agitation 07/11/19 15:00 08/25/19 14:59 07/30/19 23:26 Hydralazine HCl (Apresoline) 10 mg Q4H PRN IV Blood pressure over 160 systol 06/07/19 10:15 09/05/19 10:14 Insulin Aspart (NovoLOG) EVERY 6 HOURS SUBQ 06/21/19 00:00 09/19/19 00:00 08/02/19 05:36 Lorazepam (Ativan 2mg/ml 1ml) 0.5 mg Q2H PRN IV For Anxiety 08/01/19 23:00 08/08/19 22:59 08/02/19 02:26 Metoclopramide HCl (Reglan) 5 mg Q8HR IVP 07/29/19 18:00 08/28/19 17:59 08/02/19 05:16 Midodrine (Pro-Amatine) 10 mg Q8HR NG 07/29/19 14:00 10/15/19 10:29 08/02/19 05:16 Norepinephrine Bitartrate 8 mg/ Sodium Chloride 250 ml @ 0 mls/hr Q24H IV 07/23/19 16:15 08/22/19 16:14 07/24/19 17:41 Pantoprazole (Protonix) 40 mg DAILY IVP 07/27/19 09:00 08/26/19 08:59 08/02/19 08:35 Vancomycin HCl (Vanco pharmacy to dose) 1 ea DAILY PRN MISC Per rx protocol 07/20/19 10:45 08/19/19 10:44 Ted Leyva MD Aug 02, 2019 10:22
--- NOTE | 2019-08-02 10:46 | General Progress Note ---
Assessment/Plan Status: progressing, unchanged, deteriorating Assessment/Plan: 1. Diabetes. 2. Hypertension. 3. Coronary artery disease. 4. COPD. 5. Psychiatric disorder with schizophrenia. 6. History of hepatitis C. 7. HLP. 8. Chronic kidney disease, now with acute renal failure. 9. Anemia. 10. Hypothyroidism. 11. Spinal stenosis. 12. Constipation. 13. GERD. 14. COVID positive HD per nephrology fu labs icu care s/p PEG GTF monitor for residuals Subjective ROS Limited/Unobtainable: No Allergies: Coded Allergies: No Known Allergies (Unverified , 05/28/19) Objective Last 24 Hour Vital Signs Date Time Temp Pulse Resp B/P (MAP) Pulse Ox O2 Delivery O2 Flow Rate FiO2 08/02/19 10:00 111 26 124/78 (93) 99 08/02/19 09:00 105 0 100/65 (77) 98 08/02/19 08:00 30 08/02/19 08:00 99.5 103 17 91/62 (72) 100 08/02/19 08:00 Mechanical Ventilator 08/02/19 07:55 100 08/02/19 07:55 103 08/02/19 07:05 108 26 99 Mechanical Ventilator 30 108 26 30 08/02/19 07:00 104 24 104/69 (81) 100 08/02/19 06:30 108 24 08/02/19 06:00 109 24 111/70 (84) 100 08/02/19 05:00 106 26 101/74 (83) 100 08/02/19 04:00 Mechanical Ventilator 08/02/19 04:00 30 08/02/19 04:00 99.5 112 19 114/70 (85) 99 08/02/19 04:00 112 08/02/19 03:32 111 23 100 Mechanical Ventilator 30 112 26 30 08/02/19 03:00 114 27 121/71 (88) 100 08/02/19 02:00 112 33 134/81 (98) 100 08/02/19 01:00 118 21 105/68 (80) 100 08/02/19 00:00 121 08/02/19 00:00 98.8 119 27 124/79 (94) 100 08/02/19 00:00 Mechanical Ventilator 08/02/19 00:00 30 08/01/19 23:41 119 26 100 Mechanical Ventilator 30 118 26 30 08/01/19 23:00 120 24 125/82 (96) 100 08/01/19 22:00 117 26 123/74 (90) 100 08/01/19 21:00 121 26 118/72 (87) 100 08/01/19 20:06 127 28 100 Mechanical Ventilator 30 126 26 30 08/01/19 20:00 128 08/01/19 20:00 100.2 129 30 131/76 (94) 100 08/01/19 20:00 Mechanical Ventilator 08/01/19 20:00 30 08/01/19 19:00 129 35 124/82 (96) 100 08/01/19 18:00 120 20 123/80 (94) 100 08/01/19 17:00 111 19 113/78 (90) 100 08/01/19 16:00 30 08/01/19 16:00 108 08/01/19 16:00 98.7 111 13 114/71 (85) 100 08/01/19 16:00 Mechanical Ventilator 08/01/19 15:57 109/71 08/01/19 15:00 113 10 94/67 (76) 100 08/01/19 14:44 117 26 100 Mechanical Ventilator 30 117 26 30 08/01/19 14:00 118 19 121/76 (91) 100 08/01/19 13:00 110 17 127/71 (89) 100 08/01/19 12:00 Mechanical Ventilator 08/01/19 12:00 122 08/01/19 12:00 30 08/01/19 12:00 98.8 115 26 104/70 (81) 99 08/01/19 11:22 100 08/01/19 11:19 121 32 30 08/01/19 11:15 30 08/01/19 11:00 127 36 122/77 (92) 100 Intake and Output 08/01/19 08/02/19 19:00 07:00 Intake Total 936.666 ml 540 ml Output Total 100 ml 300 ml Balance 836.666 ml 240 ml Free Water 30 ml IV Total 366.666 ml Tube Feeding 540 ml 540 ml Output Urine Total 0 ml 0 ml Stool Total 100 ml 300 ml Laboratory Tests 08/02/19 05:25: White Blood Count 15.5H, Red Blood Count 3.40L, Hemoglobin 9.8L, Hematocrit 33.0L, Mean Corpuscular Volume 97, Mean Corpuscular Hemoglobin 28.7, Mean Corpuscular Hemoglobin Concent 29.6L, Red Cell Distribution Width 18.3H, Platelet Count 403, Mean Platelet Volume 7.3, Neutrophils (%) (Auto) 79.4H, Lymphocytes (%) (Auto) 12.6L, Monocytes (%) (Auto) 5.3, Eosinophils (%) (Auto) 2.2, Basophils (%) (Auto) 0.5, Sodium Level 142, Potassium Level 2.9L, Chloride Level 100, Carbon Dioxide Level 28, Anion Gap 14, Blood Urea Nitrogen 49H, Creatinine 7.5H, Estimat Glomerular Filtration Rate 7.3, Glucose Level 181H, Calcium Level 9.2, Phosphorus Level 3.7, Magnesium Level 2.5H, Total Bilirubin 0.3, Aspartate Amino Transf (AST/SGOT) 21, Alanine Aminotransferase (ALT/SGPT) 13, Alkaline Phosphatase 123H, C-Reactive Protein, Quantitative 1.8H, Pro-B- Type Natriuretic Peptide 27004R, Total Protein 8.7H, Albumin 2.9L, Globulin 5.8 , Albumin/Globulin Ratio 0.5L Height (Feet): 6 Height (Inches): 1.00 Weight (Pounds): 178 General Appearance: no apparent distress EENT: normal ENT inspection Neck: supple Cardiovascular: normal rate Respiratory/Chest: decreased breath sounds Abdomen: normal bowel sounds, non tender, soft Extremities: non-tender Marito Ramires MD Aug 02, 2019 10:46
--- NOTE | 2019-08-02 10:47 | Diagnostic Imaging Report ---
Procedure: XRAY Chest 1v Reason for study: Shortness of breath Comparison films: 07/24/2011. FINDINGS: Tracheostomy and right central venous catheter remain in place. Vascularity is normal. There is improved right lung infiltrates with mild residual in the right midlung. Minimal densities left lung base unchanged. Cardiac and mediastinal silhouette are within normal limits. CP angles are sharp. The bony thorax appear unremarkable. IMPRESSION: Improved right midlung infiltrate.
--- NOTE | 2019-08-02 11:51 | Hematology/Onc Progress Note ---
Assessment/Plan Assessment/Plan Assessment and Recs: # Anemia of chronic disease, likely related ot underlying kidney disease has COIVD19++++++ --> hgb trend 9-->8-->7.3-->7.9-->6.8->9.5-->10->8.3-->7.7-->7.1-->8.9->8.8->7.7 -->8.1 ->7.9-->7.7 -->8.2-->8.1 -->7.9-->8.5 -->9->9.2-->9.5-->10.7 -->9.8--> 10.2-->11.8 -->11.9-->8.8 ->9.4->9-->8.3 -->8.5-->9.4->9.8 --> transfuse as needed, hgb goal >7 --> no evidence of hemolysis --> peripheral smear has been reviewed --> epogen started 3 x a week ==>> transfuse 06/08, 06/15 # Leukocytosis likely related to suspected COVID-19 virus infection --> completed plaquenil --> trend smear as needed --> wbc trend: 4-->11-->14.5-->21-->26-->21->24--.28-->23-->19-->16.2-->21--> 11.2 -->12.5-->12.3-->12.4-->18.5-->18.5-->17->13-->18.2-->22.2-->25-->17.4-->17 -->14.2-->14-->16-->15.5 --> pulm is aware --> on abx cefepime/vanc->zosyn/vanc-->dom/vanc-->dom-->levaquin/cefepime--> vanc --> pressors as needed --> 5/18 covid 19++ --> pressors as needed in icu # Thrombocytopenia/Lymphopenia --> likely related to covid19 --> plt 129k-->186k-->251-->285-->384 -->430-->539-->515-->447-->451-->404-->544 -->244 # Respiratory failure with covid19+ --> s/p vent/trach --> weaning # Possible Pneumonia --> abx completed --> 07/13 cxr: Improved right lung infiltrates. # Cardiomegaly # Transaminitis with Elevated AST # COPD # Chronic Kidney Disease --> per renal hd --> s/p right femoral cath 07/02 # Hypertension # peg # Dvt ppx lovenox Appreciate consultation and ernesto Rn Subjective Allergies: Coded Allergies: No Known Allergies (Unverified , 05/28/19) All Systems: reviewed and negative except above Subjective 06/01 nv, extremely agitated, not allowing labs draws, no night sweats, cbc ordered 06/02 confused, restraints, on abx and plaquenil, hgb 7.9, nrb 15 L 06/03 is with nonrebreather, but not compliant, remains confused 06/05 no bleeding, labs noted, no major bleeding, otherwise comfortable 06/06 labs reviewed, no bleeding, meds noted, no night sweats, on levo and nonrebreather 06/07 labs noted, no bleeding, meds reviewed, no bleeding, wbc higher 06/08 to get 2 units prbc, no night sweats, meds reviewed 06/09 is on cefepime and vanc, labs noted, ernesto Rn, no bleeding 06/10 no major changes, labs reviewed, wbc 28k, on abx, cefepime 06/12 remains in icu, labs noted, no night sweats or bleeding 06/13 sluggish pupils, remains agitated, per psych, no bleding, on vent, wbc sitll high 06/14 still confused, remains on vent, with ng, running nepro, on pressors 06/15 icu, febrile, non verbal, hgb 7.1, blood pending, completed plaq 06/16 remains in the icu, nonverbal, plan for hd tomorrow, renesto rn 06/17 in icu, on pressor, nonverbal, on abx, no bleeding 06/19 no bleeding, nonverbal in icu, hgb is 7.7 06/20 on zosyn, tube feeds, vent, labs noted, in icu, nv 06/21 gettng hd as per renal, in icu, nv, no bleeding, tfs 06/22 icu, cxr with slight improvement, cooling blanket, weaning today 06/23 wewaning, in icu, on vent, abx, and pressors as needed, labs noted 06/24 failed weaning, off abx, completed plaquenil, hgb 8.1 06/26 icu, weaning for this am, afebrile, hgb 8 06/27 in icu, remains comotose, weaning started on peep, no night sweats 06/28 weaning today, off abx, restraints, no distress, h/h stable 06/29 covid 19+, failed weaning, no blood transfusion needed 06/30 icu, on vent, labs reviewed, no distress 07/01 in icu, may need trach, remains on hd per renal, labs noted 07/02 s/p right fem cath, failed wean, no new orders, h/h stable 07/03 is somewhat more responsive, on abx, no bleeding, weaning and HD today 07/04 hd as per renal, weaning off vent, no bleeding today 07/05 obtunded, no bleding overnight, with hd for tomorrow noted, vanc 07/08 no events, remains with trach/vent, ernesto Rn, no bleeding, cbc is noted 07/09 no overnight events, peg for friday pending consent 07/10 off pressors, vent, restraints, labs reviewed 07/11 no acute events is on pressors, intubated, agitated still 07/12 is resting comfortably, no bleeding, emds reviewed and noted 07/13 icu, no events, trach, cxr reviewed, 07/14 is onv ent, tachypneic and tachycardic, labs noted 07/15 remains confused, intubated, ernesto Rn, no bleeding 07/17 icu, cxr improving infiltrates, levo gtt, airborne/contact isolation 07/18 is on broad spectrum abx, is on levaquin and cefepime, wbc 16 agitated 07/19 icu, levo gtt, cxr unchanged, tachy, hd thursday 07/20 sedated, safety restraints, labs reviewed 07/21 hd was done yesterday, lower pressor requirements, wbc is worse, on abx 07/22 icu, meds and labs reviewed, vent, no distress 07/24 on vent, in icu, labs noted, remains agitated, and confused 07/25 remains obtunded, on vent, on pressor, hgb 9, wbc elev 07/26 icu, levo gtt, vent, iv abx, nonverbal 07/27 failed weaning, labs reviewed, repeat covid swab pending 07/28 labs are noted, no bleeding, on vent/trach gtube feeds dw rn 07/29 iuc, restraints, no new changes, vent 07/31 is asleep, comfortable, no events, labs reviewed, restraints+ 08/01 no events, agitated, no bleeding, meds noted, on gtube feeds Objective Objective Current Medications Medications (Trade) Dose Ordered Sig/Anthony Route PRN Reason Start Time Stop Time Status Last Admin Dose Admin Acetaminophen (Tylenol) 650 mg Q4H PRN NG For Pain 07/11/19 08:00 08/10/19 07:59 08/01/19 19:55 Albuterol Sulfate (Proventil MDI) 2 puff Q4HRT INH 06/06/19 23:00 08/30/19 18:59 08/02/19 07:10 Chlorhexidine Gluconate (Michelle-Hex 2%) 1 applic DAILY@2000 TOPIC 06/07/19 20:00 09/05/19 19:59 08/01/19 19:54 Dextrose (Dextrose 50%) 25 ml Q30M PRN IV Hypoglycemia 06/20/19 19:30 09/18/19 19:29 Dextrose (Dextrose 50%) 50 ml Q30M PRN IV Hypoglycemia 06/20/19 19:30 09/18/19 19:29 Dopamine HCl/ Dextrose 250 ml @ 0 mls/hr Q24H PRN IV For hypotension 06/13/19 08:15 09/11/19 08:14 07/17/19 08:46 Enoxaparin Sodium (Lovenox) 30 mg DAILY SUBQ 06/07/19 09:00 08/27/19 08:59 08/02/19 08:36 Epoetin Aftab (Epoetin Aftab(ESRD on dialysis)) 10,000 unit FRI-FRI-FRI SUBQ 06/07/19 21:00 08/31/19 20:59 07/30/19 20:50 Fentanyl Citrate 250 ml @ 0 mls/hr Q24H IV 07/19/19 14:06 10/17/19 14:05 07/28/19 21:16 Haloperidol Lactate 5 mg/ Dextrose 56 ml @ 224 mls/hr Q6H PRN IVPB Agitation 07/11/19 15:00 08/25/19 14:59 07/30/19 23:26 Hydralazine HCl (Apresoline) 10 mg Q4H PRN IV Blood pressure over 160 systol 06/07/19 10:15 09/05/19 10:14 Insulin Aspart (NovoLOG) EVERY 6 HOURS SUBQ 06/21/19 00:00 09/19/19 00:00 08/02/19 11:49 Lorazepam (Ativan 2mg/ml 1ml) 0.5 mg Q2H PRN IV For Anxiety 08/01/19 23:00 08/08/19 22:59 08/02/19 02:26 Metoclopramide HCl (Reglan) 5 mg Q8HR IVP 07/29/19 18:00 08/28/19 17:59 08/02/19 05:16 Midodrine (Pro-Amatine) 10 mg Q8HR NG 07/29/19 14:00 10/15/19 10:29 08/02/19 05:16 Norepinephrine Bitartrate 8 mg/ Sodium Chloride 250 ml @ 0 mls/hr Q24H IV 07/23/19 16:15 08/22/19 16:14 07/24/19 17:41 Pantoprazole (Protonix) 40 mg DAILY IVP 07/27/19 09:00 08/26/19 08:59 08/02/19 08:35 [facility]com[facility]) 1 ea DAILY PRN MISC Per rx protocol 07/20/19 10:45 08/19/19 10:44 Last 24 Hour Vital Signs Date Time Temp Pulse Resp B/P (MAP) Pulse Ox O2 Delivery O2 Flow Rate FiO2 08/02/19 11:00 111 20 100/67 (78) 100 08/02/19 10:00 111 26 124/78 (93) 99 08/02/19 09:00 105 18 100/65 (77) 98 08/02/19 08:00 30 08/02/19 08:00 99.5 103 17 91/62 (72) 100 08/02/19 08:00 Mechanical Ventilator 08/02/19 07:55 100 08/02/19 07:55 103 08/02/19 07:05 108 26 99 Mechanical Ventilator 30 108 26 30 08/02/19 07:00 104 24 104/69 (81) 100 08/02/19 06:30 108 24 08/02/19 06:00 109 24 111/70 (84) 100 08/02/19 05:00 106 26 101/74 (83) 100 08/02/19 04:00 Mechanical Ventilator 08/02/19 04:00 30 08/02/19 04:00 99.5 112 19 114/70 (85) 99 08/02/19 04:00 112 08/02/19 03:32 111 23 100 Mechanical Ventilator 30 112 26 30 08/02/19 03:00 114 27 121/71 (88) 100 08/02/19 02:00 112 33 134/81 (98) 100 08/02/19 01:00 118 21 105/68 (80) 100 08/02/19 00:00 121 08/02/19 00:00 98.8 119 27 124/79 (94) 100 08/02/19 00:00 Mechanical Ventilator 08/02/19 00:00 30 08/01/19 23:41 119 26 100 Mechanical Ventilator 30 118 26 30 08/01/19 23:00 120 24 125/82 (96) 100 08/01/19 22:00 117 26 123/74 (90) 100 08/01/19 21:00 121 26 118/72 (87) 100 08/01/19 20:06 127 28 100 Mechanical Ventilator 30 126 26 30 08/01/19 20:00 128 08/01/19 20:00 100.2 129 30 131/76 (94) 100 08/01/19 20:00 Mechanical Ventilator 08/01/19 20:00 30 08/01/19 19:00 129 35 124/82 (96) 100 08/01/19 18:00 120 20 123/80 (94) 100 08/01/19 17:00 111 19 113/78 (90) 100 08/01/19 16:00 30 08/01/19 16:00 108 08/01/19 16:00 98.7 111 13 114/71 (85) 100 08/01/19 16:00 Mechanical Ventilator 08/01/19 15:57 109/71 08/01/19 15:00 113 10 94/67 (76) 100 08/01/19 14:44 117 26 100 Mechanical Ventilator 30 117 26 30 08/01/19 14:00 118 19 121/76 (91) 100 08/01/19 13:00 110 17 127/71 (89) 100 08/01/19 12:00 Mechanical Ventilator 08/01/19 12:00 122 08/01/19 12:00 30 08/01/19 12:00 98.8 115 26 104/70 (81) 99 08/01/19 11:22 100 08/01/19 11:19 121 32 30 08/01/19 11:15 30 08/01/19 11:00 127 36 122/77 (92) 100 08/01/19 10:00 111 35 117/70 (86) 100 08/01/19 09:00 110 34 124/75 (91) 100 08/01/19 08:30 30 08/01/19 08:22 102 36 30 08/01/19 08:19 100 26 100 Mechanical Ventilator 30 98 26 30 08/01/19 08:00 100.4 107 25 104/67 (79) 100 08/01/19 08:00 106 08/01/19 08:00 Mechanical Ventilator 08/01/19 08:00 30 08/01/19 07:00 109 14 118/78 (91) 100 08/01/19 06:30 113 23 120/78 (92) 100 08/01/19 06:30 113 23 08/01/19 06:00 116 21 131/72 (91) 100 08/01/19 05:00 115 18 132/89 (103) 100 08/01/19 04:00 Mechanical Ventilator 08/01/19 04:00 99.1 114 26 118/81 (93) 100 08/01/19 04:00 30 08/01/19 03:12 118 27 30 08/01/19 03:00 113 08/01/19 03:00 113 26 108/71 (83) 100 08/01/19 02:00 113 26 116/72 (87) 100 08/01/19 01:00 118 26 143/78 (99) 100 08/01/19 00:00 30 08/01/19 00:00 Mechanical Ventilator 08/01/19 00:00 97.4 113 26 112/68 (83) 100 08/01/19 00:00 113 07/31/19 23:00 109 26 104/70 (81) 100 07/31/19 23:00 121 26 30 07/31/19 22:30 108 26 115/72 (86) 100 07/31/19 22:00 113 26 130/82 (98) 99 07/31/19 21:00 116 18 124/80 (95) 100 07/31/19 20:30 114 23 122/75 (91) 98 07/31/19 20:00 30 07/31/19 20:00 99.5 113 26 127/79 (95) 100 07/31/19 20:00 Mechanical Ventilator 07/31/19 19:59 113 26 30 07/31/19 19:27 113 07/31/19 19:00 113 35 108/49 (68) 99 07/31/19 18:30 117 24 107/80 (89) 100 07/31/19 18:00 121 27 122/78 (93) 100 07/31/19 17:30 117 29 126/79 (95) 100 07/31/19 17:00 127 34 143/108 (120) 100 07/31/19 16:15 148/86 07/31/19 16:00 115 07/31/19 16:00 99.5 118 33 137/80 (99) 100 07/31/19 16:00 Mechanical Ventilator 07/31/19 16:00 30 07/31/19 15:23 113 32 30 07/31/19 15:07 112 0 121/69 (86) 100 07/31/19 15:05 114 16 85/69 (74) 100 07/31/19 15:00 118 3 89/60 (70) 100 07/31/19 14:06 111 16 113/72 (86) 100 07/31/19 13:00 118 16 97/65 (76) 100 07/31/19 12:19 106 26 100 Mechanical Ventilator 30 106 38 30 07/31/19 12:09 108 26 124/69 (87) 100 6/20/20 12:00 Mechanical Ventilator 07/31/19 12:00 108 07/31/19 12:00 30 07/31/19 12:00 99.2 111 23 124/78 (93) 100 Intake and Output 08/01/19 08/02/19 19:00 07:00 Intake Total 936.666 ml 540 ml Output Total 100 ml 300 ml Balance 836.666 ml 240 ml Free Water 30 ml IV Total 366.666 ml Tube Feeding 540 ml 540 ml Output Urine Total 0 ml 0 ml Stool Total 100 ml 300 ml Labs Test 07/31/19 03:45 08/01/19 04:18 08/02/19 05:25 White Blood Count 16.5 K/UL (4.8-10.8) 15.5 K/UL (4.8-10.8) Red Blood Count 3.28 M/UL (4.70-6.10) 3.40 M/UL (4.70-6.10) Hemoglobin 9.4 G/DL (14.2-18.0) 9.8 G/DL (14.2-18.0) Hematocrit 31.4 % (42.0-52.0) 33.0 % (42.0-52.0) Mean Corpuscular Volume 96 FL (80-99) 97 FL (80-99) Mean Corpuscular Hemoglobin 28.7 PG (27.0-31.0) 28.7 PG (27.0-31.0) Mean Corpuscular Hemoglobin Concent 30.0 G/DL (32.0-36.0) 29.6 G/DL (32.0-36.0) Red Cell Distribution Width 17.9 % (11.6-14.8) 18.3 % (11.6-14.8) Platelet Count 447 K/UL (150-450) 403 K/UL (150-450) Mean Platelet Volume 6.6 FL (6.5-10.1) 7.3 FL (6.5-10.1) Neutrophils (%) (Auto) 84.1 % (45.0-75.0) 79.4 % (45.0-75.0) Lymphocytes (%) (Auto) 8.6 % (20.0-45.0) 12.6 % (20.0-45.0) Monocytes (%) (Auto) 5.4 % (1.0-10.0) 5.3 % (1.0-10.0) Eosinophils (%) (Auto) 1.2 % (0.0-3.0) 2.2 % (0.0-3.0) Basophils (%) (Auto) 0.8 % (0.0-2.0) 0.5 % (0.0-2.0) Sodium Level 142 MMOL/L (136-145) 142 MMOL/L (136-145) Potassium Level 3.7 MMOL/L (3.5-5.1) 2.9 MMOL/L (3.5-5.1) Chloride Level 101 MMOL/L (98-107) 100 MMOL/L (98-107) Carbon Dioxide Level 26 MMOL/L (21-32) 28 MMOL/L (21-32) Anion Gap 15 mmol/L (5-15) 14 mmol/L (5-15) Blood Urea Nitrogen 65 mg/dL (7-18) 49 mg/dL (7-18) Creatinine 9.2 MG/DL (0.55-1.30) 7.5 MG/DL (0.55-1.30) Estimat Glomerular Filtration Rate 5.8 mL/min (>60) 7.3 mL/min (>60) Glucose Level 163 MG/DL (74-106) 181 MG/DL (74-106) Calcium Level 9.2 MG/DL (8.5-10.1) 9.2 MG/DL (8.5-10.1) Phosphorus Level 3.2 MG/DL (2.5-4.9) 3.7 MG/DL (2.5-4.9) Magnesium Level 2.8 MG/DL (1.8-2.4) 2.5 MG/DL (1.8-2.4) Total Bilirubin 0.4 MG/DL (0.2-1.0) 0.3 MG/DL (0.2-1.0) Aspartate Amino Transf (AST/SGOT) 19 U/L (15-37) 21 U/L (15-37) Alanine Aminotransferase (ALT/SGPT) 8 U/L (12-78) 13 U/L (12-78) Alkaline Phosphatase 119 U/L (46-116) 123 U/L (46-116) C-Reactive Protein, Quantitative 6.2 mg/dL (0.00-0.90) 1.8 mg/dL (0.00-0.90) Pro-B-Type Natriuretic Peptide 97885 pg/mL (0-125) 04776 pg/mL (0-125) Total Protein 8.7 G/DL (6.4-8.2) 8.7 G/DL (6.4-8.2) Albumin 2.7 G/DL (3.4-5.0) 2.9 G/DL (3.4-5.0) Globulin 6.0 g/dL 5.8 g/dL Albumin/Globulin Ratio 0.5 (1.0-2.7) 0.5 (1.0-2.7) Random Vancomycin Level 17.9 ug/mL Height (Feet): 6 Height (Inches): 1.00 Weight (Pounds): 178 Objective General: nv, confused, sedated Heent: bilateral eye normal inspection, bilateral eye PERRL ++Ng Respiratory: normal breath sounds, no respiratory distress, intubated/vent +++ trach+++ Cardiovascular: regular rate, rhythm, no edema Gastrointestinal: normal inspection, soft, non-distended, peg+ Rectal: deferred Musculoskeletal: normal range of motion, non-tender, R fem cath++ Neurologic: alert, motor strength/tone normal, sensory intact, responsive, speech normal Skin: Decubitus/Ulcer - See RN skin exam. : jamaal+ Greg Cabral MD Aug 02, 2019 11:51
[2019-08-02] MEDS: Acetaminophen 650mg/20.3ml NG PRN ×2 (12:16→20:18)
--- NOTE | 2019-08-02 12:36 | Nephrology Progress Note ---
Assessment/Plan Problem List: (1) CASSANDRA (acute kidney injury) (2) Anemia in chronic kidney disease (CKD) (3) HTN (hypertension) (4) COVID-19 Assessment Acute renal failure most likely superimposed on chronic kidney disease Suspected COVID-19 virus infection Possible Pneumonia, lymphopenia, elevated AST Cardiomegaly, possible CHF COPD Hypertension Anemia, most likely related to chronic kidney disease Plan August 01: Labs reviewed. Potassium replacement ordered. Remains full code on ventilator via trach. Continue per consultants. July 31: Dialyzed yesterday. No can panel today. Remains full code. Remains on ventilator. Being fed through PEG. Continue per consultants. July 30: Patient due for dialysis today. Labs are reviewed. Remains full code. Status post trach to ventilator. Status post PEG. July 29: Patient dialyzed yesterday. Due for dialysis tomorrow. Remains in ICU. Full code. Status post trach tube to ventilator. Status post PEG. July 28: Due for dialysis today. Labs reviewed. Full code. Patient trached and vented. July 27: Last COVID test negative. COVID test will be repeated tomorrow. Will order dialysis tomorrow. Remains full code. Medication list and labs reviewed. July 26: No labs done today. Dialysis done yesterday. Will check lab tomorrow. Dialysis as needed. July 25: Lab reviewed. Dialysis today. Discussed with RN. July 24: Lab reviewed. Do dialysis tomorrow. Discussed with RN. July 23: Lab reviewed. Dialyzed yesterday. Discussed with RN. Remains full code. Next dialysis July 25. Will check labs tomorrow. July 22: Labs reviewed. Due for dialysis today. Discussed with RN. Watch borderline low blood pressure. Discussed with dialysis nurse. July 21: Today's lab reviewed. Will arrange for dialysis tomorrow. Discussed with RN. Aim to keep the blood pressure above 100 systolic. Continue per consultants. July 20: Patient was dialyzed yesterday. Could not ultrafiltrate much due to low blood pressure. Discussed with SHANIQUE Dick today. No labs drawn today. Continue per consultants. July 19: Due for dialysis today. Discussed with SHANIQUE Dick. Continue per consultants. July 18: Dialyzed July 16. Will order dialysis tomorrow July 19. Continues to be on ventilator through trach. No labs done today. Continue per consultants. July 17: Dialyzed yesterday. Stable from renal standpoint of view. Remains full code. Status post trach on vent. Status post PEG. Continue per consultants. July 16: Dialysis today. Will resume Midodrin to prevent hypotension. Patient remains full code. July 15: Dialyzed yesterday, due for dialysis tomorrow. Labs and medication list reviewed. Continue per consultants. Patient remains full code. COVID-19 detected again. July 14: Patient currently on dialysis. This is continuation of dialysis from yesterday as yesterday's dialysis was cut short due to catheter malfunction. Labs and medication reviewed. Continue per consultants. July 13: Patient currently on hemodialysis. The dialysis catheter which is a intrajugular Kamlesh has poor flow. Will try TPA. Continue per consultants. July 12: Due for PEG today. Due for dialysis tomorrow. Continue per consultants. Discussed with RN. July 11: Plan for dialysis today. Discussed with RN. Data reviewed. July 10: Plan for dialysis tomorrow July 11. Waiting for consent to proceed with PEG. Continue per consultants. Medication reviewed. Labs reviewed. Discussed with RN. July 09: Dialyzed yesterday. Labs reviewed. Medication reviewed. Next hemodialysis July 11. July 08: Patient has tracheostomy now. Connected to ventilator. Due for dialysis today. Continue per consultants. Discussed with SHANIQUE Romero. July 07: Patient is due for tracheostomy today. Patient was last dialyzed July 05. Will order dialysis for tomorrow. July 06: Patient is intubated on ventilator however the plan is to extubate today. Patient was dialysis yesterday July 05. The dialysis time was cut short due to patient's respiratory distress. Only 1 L was removed during dialysis yesterday. Today's lab reviewed. Continue per consultants. Will arrange for dialysis as needed. July 05: Patient due for dialysis today. Remains intubated. Will schedule permacath placement in a.m. blood cultures on July 04 are negative. July 04: Patient was dialyzed yesterday. Due for dialysis tomorrow. Continues to be intubated. After tomorrow's dialysis will order a permacath. July 03: Dialysis is about to be started now Continues to be intubated Will plan to remove the femoral dialysis catheter and exchanged for a new temporary catheter per ID recommendation We will check surveillance blood culture tomorrow July 02: Patient was dialyzed yesterday and due for dialysis tomorrow Stable from renal standpoint W on dialysis Continue per consultants, weaning....... etc. July 01: Dialysis today Other status unchanged June 30: Due for dialysis tomorrow Remains intubated on ventilator Labs and medication reviewed Discussed with RN Stable from renal standpoint of view June 29: Dialyzed yesterday Due for dialysis tomorrow Stable from renal standpoint to view Keeps failing weaning process June 28: Patient due for dialysis today Stable from renal standpoint to view Continue per consultants June 27: Labs reviewed Due due for dialysis June 28 Discussed with SHANIQUE Dick Continue per consultants Remains intubated on ventilator June 26 Labs reviewed Dialyzed yesterday Started on weaning today Continue to monitor renal parameters June 25: On dialysis now Potassium supplement implemented Continue per consultants Next dialysis June 27June 15: Status unchanged Dialyzed yesterday will dialyze again tomorrow Potassium supplements given Discussed with RN June 14: Due dialysis today Status: Remains intubated on ventilator June 22: Status unchanged Dialyzed yesterday and duefordialysistomorrow Serum sodium stable today June 21 Remains intubated on ventilator Due dialysis today Emphasized high sodium bath for dialysis June 20: Remains intubated on ventilator Dialyzed June 19 next dialysis June 21 Serum sodium 128, will give 250 cc 3% saline Remains full code Discussed with RN Iron panel ordered June 19: Discussed with RN. Patient due for dialysis today. Continue pulmonary support. Remains full code. June 18: Patient dialyzed yesterday June 17 Serum sodium improved but still low Arrange for dialysis tomorrow June 19 Continue per consultants June 17: Due for dialysis today Today's lab reviewed, low serum sodium noted, Emphasized on high sodium bath to dialysis nurse Discussed with SHANIQUE Yuen June 16: Dialyzed yesterday Remains intubated Labs reviewed, serum sodium 131 Plan to dialyze tomorrow June 17 with high sodium bath Discussed with SHANIQUE Yuen June 6: Due for dialysis today Labs reviewed Discussed with RN Transfuse 1 unit of packed RBCs today for low hemoglobin of 7.1 June 5: Blood pressure well maintained Receive dialysis June 13 next hemodialysis June 15June 4: Discussed with RN in ICU Patient did not receive proper dialysis yesterday due to dialysis catheter malfunction Catheter to be adjusted today and dialyzed to be resumed today Continue per consultants Positive for COVID 28 June 2: Patient now intubated on mechanical ventilation Discussed with SHANIQUE Yuen, today June 12 Patient received dialysis yesterday June 10 next hemodialysis June 12 Blood pressure better maintained Today's labs reviewed Continue per consultants Previously patient received dialysis last evening June 05, next dialysis June 07 which was incomplete due to patient's hypotension Will start on midodrine for blood pressure support. Meanwhile continue other pressors as needed Previously Patient is doing poorly, septic, white blood cells are rising, Hypotension somewhat improved We will keep n.p.o. , NG tube for medications, and change medication to IV as needed Patient remains full code Monitor vancomycin level Previously: Patient pulled out his femoral catheter yesterday June 03 which was reinserted by Dr. Mast Patient scheduled for dialysis again June 04, which again was not done due to dialysis nurse citing catheter malfunction Meanwhile continue management per ID, pulmonary , and psych. Meanwhile white blood cell count is rising. Patient blood pressure borderline low. Will check ABG Previously May 31 : I believe patient need dialysis treatment He however needs to competency assessment if can make decisions or not I will communicate with Dr. Mulligan Previously: Per pulmonary and ID advice Adjust blood pressure medication Renal diet Anemia work-up 2D echocardiogram refused Kidney ultrasound refused Jules catheter Urine studies Per orders Subjective ROS Limited/Unobtainable: Yes Objective Objective Last 24 Hour Vital Signs Date Time Temp Pulse Resp B/P (MAP) Pulse Ox O2 Delivery O2 Flow Rate FiO2 08/02/19 12:00 100.9 103 20 100/64 (76) 100 08/02/19 12:00 30 08/02/19 12:00 Mechanical Ventilator 08/02/19 11:05 110 26 96 Mechanical Ventilator 30 110 26 30 08/02/19 11:00 111 20 100/67 (78) 100 08/02/19 10:00 111 26 124/78 (93) 99 08/02/19 09:00 105 18 100/65 (77) 98 08/02/19 08:00 30 08/02/19 08:00 99.5 103 17 91/62 (72) 100 08/02/19 08:00 Mechanical Ventilator 08/02/19 07:55 100 08/02/19 07:55 103 08/02/19 07:05 108 26 99 Mechanical Ventilator 30 108 26 30 08/02/19 07:00 104 24 104/69 (81) 100 08/02/19 06:30 108 24 08/02/19 06:00 109 24 111/70 (84) 100 08/02/19 05:00 106 26 101/74 (83) 100 08/02/19 04:00 Mechanical Ventilator 08/02/19 04:00 30 08/02/19 04:00 99.5 112 19 114/70 (85) 99 08/02/19 04:00 112 08/02/19 03:32 111 23 100 Mechanical Ventilator 30 112 26 30 08/02/19 03:00 114 27 121/71 (88) 100 08/02/19 02:00 112 33 134/81 (98) 100 08/02/19 01:00 118 21 105/68 (80) 100 08/02/19 00:00 121 08/02/19 00:00 98.8 119 27 124/79 (94) 100 08/02/19 00:00 Mechanical Ventilator 08/02/19 00:00 30 08/01/19 23:41 119 26 100 Mechanical Ventilator 30 118 26 30 08/01/19 23:00 120 24 125/82 (96) 100 08/01/19 22:00 117 26 123/74 (90) 100 08/01/19 21:00 121 26 118/72 (87) 100 08/01/19 20:06 127 28 100 Mechanical Ventilator 30 126 26 30 08/01/19 20:00 128 08/01/19 20:00 100.2 129 30 131/76 (94) 100 08/01/19 20:00 Mechanical Ventilator 08/01/19 20:00 30 08/01/19 19:00 129 35 124/82 (96) 100 08/01/19 18:00 120 20 123/80 (94) 100 08/01/19 17:00 111 19 113/78 (90) 100 08/01/19 16:00 30 08/01/19 16:00 108 08/01/19 16:00 98.7 111 13 114/71 (85) 100 08/01/19 16:00 Mechanical Ventilator 08/01/19 15:57 109/71 08/01/19 15:00 113 10 94/67 (76) 100 08/01/19 14:44 117 26 100 Mechanical Ventilator 30 117 26 30 08/01/19 14:00 118 19 121/76 (91) 100 6/21/20 13:00 110 17 127/71 (89) 100 Intake and Output 08/01/19 08/02/19 19:00 07:00 Intake Total 936.666 ml 540 ml Output Total 100 ml 300 ml Balance 836.666 ml 240 ml Free Water 30 ml IV Total 366.666 ml Tube Feeding 540 ml 540 ml Output Urine Total 0 ml 0 ml Stool Total 100 ml 300 ml Laboratory Tests 08/02/19 05:25: White Blood Count 15.5H, Red Blood Count 3.40L, Hemoglobin 9.8L, Hematocrit 33.0L, Mean Corpuscular Volume 97, Mean Corpuscular Hemoglobin 28.7, Mean Corpuscular Hemoglobin Concent 29.6L, Red Cell Distribution Width 18.3H, Platelet Count 403, Mean Platelet Volume 7.3, Neutrophils (%) (Auto) 79.4H, Lymphocytes (%) (Auto) 12.6L, Monocytes (%) (Auto) 5.3, Eosinophils (%) (Auto) 2.2, Basophils (%) (Auto) 0.5, Sodium Level 142, Potassium Level 2.9L, Chloride Level 100, Carbon Dioxide Level 28, Anion Gap 14, Blood Urea Nitrogen 49H, Creatinine 7.5H, Estimat Glomerular Filtration Rate 7.3, Glucose Level 181H, Calcium Level 9.2, Phosphorus Level 3.7, Magnesium Level 2.5H, Total Bilirubin 0.3, Aspartate Amino Transf (AST/SGOT) 21, Alanine Aminotransferase (ALT/SGPT) 13, Alkaline Phosphatase 123H, C-Reactive Protein, Quantitative 1.8H, Pro-B- Type Natriuretic Peptide 57221O, Total Protein 8.7H, Albumin 2.9L, Globulin 5.8 , Albumin/Globulin Ratio 0.5L Height (Feet): 6 Height (Inches): 1.00 Weight (Pounds): 178 General Appearance: no apparent distress EENT: other Cardiovascular: tachycardia - Trach and vent Respiratory/Chest: decreased breath sounds Abdomen: soft, other - PEG in place Objective No change Mic Cole MD Aug 02, 2019 12:36
[2019-08-02] MEDS: fentaNYL 2500mcg/NS 250ml 250 ML IV SCH (14:06)
--- NOTE | 2019-08-02 14:10 | Cardiac Electrophysiology PN ---
Assessment/Plan Assessment/Plan 1. Elevated troponin. Low level and flat due to renal failure. On Aspirin. EF 60%. 2. S/P Septic shock. On Midodrine 10 tid and Abx 3. ESRD, on HD per Dr. Cole. S/P PermCath placement by IR 4. Resp failure due to COVID-19 positive pneumonia. On the Vent with 30% Fio2. S/P Tracheostomy 07/08/19 5. Dysphagia, S/P PEG 07/13/19 6. COPD. 7. Anemia. 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 Off pressors Covid positive x 9. Tenth Covid was negative but the 11th one positive again S/P PermCath placement by IR Objective Last 24 Hour Vital Signs Date Time Temp Pulse Resp B/P (MAP) Pulse Ox O2 Delivery O2 Flow Rate FiO2 08/02/19 14:00 99 26 107/63 (78) 100 08/02/19 13:23 98.8 08/02/19 13:00 105 26 105/61 (76) 100 08/02/19 12:00 100.9 103 20 100/64 (76) 100 08/02/19 12:00 30 08/02/19 12:00 Mechanical Ventilator 08/02/19 12:00 106 08/02/19 11:05 110 26 96 Mechanical Ventilator 30 110 26 30 08/02/19 11:00 111 20 100/67 (78) 100 08/02/19 10:00 111 26 124/78 (93) 99 08/02/19 09:00 105 18 100/65 (77) 98 08/02/19 08:00 30 08/02/19 08:00 99.5 103 17 91/62 (72) 100 08/02/19 08:00 Mechanical Ventilator 08/02/19 07:55 100 08/02/19 07:55 103 08/02/19 07:05 108 26 99 Mechanical Ventilator 30 108 26 30 08/02/19 07:00 104 24 104/69 (81) 100 08/02/19 06:30 108 24 08/02/19 06:00 109 24 111/70 (84) 100 08/02/19 05:00 106 26 101/74 (83) 100 08/02/19 04:00 Mechanical Ventilator 08/02/19 04:00 30 08/02/19 04:00 99.5 112 19 114/70 (85) 99 08/02/19 04:00 112 08/02/19 03:32 111 23 100 Mechanical Ventilator 30 112 26 30 08/02/19 03:00 114 27 121/71 (88) 100 08/02/19 02:00 112 33 134/81 (98) 100 08/02/19 01:00 118 21 105/68 (80) 100 08/02/19 00:00 121 08/02/19 00:00 98.8 119 27 124/79 (94) 100 08/02/19 00:00 Mechanical Ventilator 08/02/19 00:00 30 08/01/19 23:41 119 26 100 Mechanical Ventilator 30 118 26 30 08/01/19 23:00 120 24 125/82 (96) 100 08/01/19 22:00 117 26 123/74 (90) 100 08/01/19 21:00 121 26 118/72 (87) 100 08/01/19 20:06 127 28 100 Mechanical Ventilator 30 126 26 30 08/01/19 20:00 128 08/01/19 20:00 100.2 129 30 131/76 (94) 100 08/01/19 20:00 Mechanical Ventilator 08/01/19 20:00 30 08/01/19 19:00 129 35 124/82 (96) 100 08/01/19 18:00 120 20 123/80 (94) 100 08/01/19 17:00 111 19 113/78 (90) 100 08/01/19 16:00 30 08/01/19 16:00 108 08/01/19 16:00 98.7 111 13 114/71 (85) 100 08/01/19 16:00 Mechanical Ventilator 08/01/19 15:57 109/71 08/01/19 15:00 113 10 94/67 (76) 100 08/01/19 14:44 117 26 100 Mechanical Ventilator 30 117 26 30 Intake and Output 08/01/19 08/02/19 19:00 07:00 Intake Total 936.666 ml 540 ml Output Total 100 ml 300 ml Balance 836.666 ml 240 ml Free Water 30 ml IV Total 366.666 ml Tube Feeding 540 ml 540 ml Output Urine Total 0 ml 0 ml Stool Total 100 ml 300 ml Laboratory Tests Test 08/02/19 05:25 White Blood Count 15.5 K/UL (4.8-10.8) H Red Blood Count 3.40 M/UL (4.70-6.10) L Hemoglobin 9.8 G/DL (14.2-18.0) L Hematocrit 33.0 % (42.0-52.0) L Mean Corpuscular Volume 97 FL (80-99) Mean Corpuscular Hemoglobin 28.7 PG (27.0-31.0) Mean Corpuscular Hemoglobin Concent 29.6 G/DL (32.0-36.0) L Red Cell Distribution Width 18.3 % (11.6-14.8) H Platelet Count 403 K/UL (150-450) Mean Platelet Volume 7.3 FL (6.5-10.1) Neutrophils (%) (Auto) 79.4 % (45.0-75.0) H Lymphocytes (%) (Auto) 12.6 % (20.0-45.0) L Monocytes (%) (Auto) 5.3 % (1.0-10.0) Eosinophils (%) (Auto) 2.2 % (0.0-3.0) Basophils (%) (Auto) 0.5 % (0.0-2.0) Sodium Level 142 MMOL/L (136-145) Potassium Level 2.9 MMOL/L (3.5-5.1) L Chloride Level 100 MMOL/L (98-107) Carbon Dioxide Level 28 MMOL/L (21-32) Anion Gap 14 mmol/L (5-15) Blood Urea Nitrogen 49 mg/dL (7-18) H Creatinine 7.5 MG/DL (0.55-1.30) H Estimat Glomerular Filtration Rate 7.3 mL/min (>60) Glucose Level 181 MG/DL (74-106) H Calcium Level 9.2 MG/DL (8.5-10.1) Phosphorus Level 3.7 MG/DL (2.5-4.9) Magnesium Level 2.5 MG/DL (1.8-2.4) H Total Bilirubin 0.3 MG/DL (0.2-1.0) Aspartate Amino Transf (AST/SGOT) 21 U/L (15-37) Alanine Aminotransferase (ALT/SGPT) 13 U/L (12-78) Alkaline Phosphatase 123 U/L (46-116) H C-Reactive Protein, Quantitative 1.8 mg/dL (0.00-0.90) H Pro-B-Type Natriuretic Peptide 21207 pg/mL (0-125) H Total Protein 8.7 G/DL (6.4-8.2) H Albumin 2.9 G/DL (3.4-5.0) L Globulin 5.8 g/dL Albumin/Globulin Ratio 0.5 (1.0-2.7) L Objective HEAD AND NECK: No JVD. Tracheostomy in place. Left IJ HD catheter now in place Right IJ PermCath in place LUNGS: Decreased breath sounds. CARDIOVASCULAR: Regular S1 and S2. Tachycardic. ABDOMEN: Soft. PEG in place EXTREMITIES: No pitting edema. Gio Baker MD Aug 02, 2019 14:10
--- NOTE | 2019-08-02 15:46 | Pulmonolgy Critical Care Note ---
Critical Care - Asmt/Plan Assessment/Plan: Pulmonary CCM Progress Note HPI: Patient is a 68 year old man, [facility] resident, admitted c/o shortness of breath, cough, noted to have Covid 19 Pneumonia, Respiratory Failure Remains on Ventilator, CXR infiltrates improving, not tolerating weaning Anemia noted CKD on HD - on Mitodrine, not tolerating weaning, will need eventual placement, second repeat COVID19 test positive Preserved EF FIO2 30%, P5, adequate O2 sats, remains on ACVC, s/p Tracheostomy previously, sp PEG, sp Permacath ID following Seen earlier Past Medical History: COPD, CKD, Hypertension, Anemia Allergies: No Known Allergies Improving Pulmonary Status on HD Physical Exam Vital Signs Noted Stable on ventilator Chronically ill appearing Deferred Covid19 Impression: COVID-19 virus infection Pneumonia Respiratory failure on ventilator, wean as tolerated once off pressors CKD - on HD Hypotension on pressors previously Cardiomegaly Lymphopenia Elevated AST COPD Chronic Kidney Disease - HD H/o Hypertension Worsening anemia Plan: SP Tracheostomy / G tube Antibiotics per ID HD Pressors PRN ACVC - wean as tolerated 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 Medications 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 Monitor cultures/viral studies PPX Hemodialysis per Renal Psychiatry following Laboratory Tests Noted: CXR: Hypoventilatory exam, interstitial changes, cardiomegaly, improving infiltrates Subjective ROS Limited/Unobtainable: No Constitutional: Denies: fever Respiratory: Reports: dry cough, shortness of breath Gastrointestinal/Abdominal: Reports: diarrhea, other - colace was stopped Psychiatric: Reports: other - refuses labs Allergies: Coded Allergies: No Known Allergies (Unverified , 05/28/19) All Systems: reviewed and negative except above Labs noted Critical Care - Objective Last 24 Hour Vital Signs Date Time Temp Pulse Resp B/P (MAP) Pulse Ox O2 Delivery O2 Flow Rate FiO2 08/02/19 15:05 97 26 99 Mechanical Ventilator 30 97 26 30 08/02/19 15:04 95 26 110/72 (85) 100 08/02/19 14:00 99 26 107/63 (78) 100 08/02/19 13:23 98.8 08/02/19 13:00 105 26 105/61 (76) 100 08/02/19 12:00 100.9 103 20 100/64 (76) 100 08/02/19 12:00 30 08/02/19 12:00 Mechanical Ventilator 08/02/19 12:00 106 08/02/19 11:05 110 26 96 Mechanical Ventilator 30 110 26 30 08/02/19 11:00 111 20 100/67 (78) 100 08/02/19 10:00 111 26 124/78 (93) 99 08/02/19 09:00 105 18 100/65 (77) 98 08/02/19 08:00 30 08/02/19 08:00 99.5 103 17 91/62 (72) 100 08/02/19 08:00 Mechanical Ventilator 08/02/19 07:55 100 08/02/19 07:55 103 08/02/19 07:05 108 26 99 Mechanical Ventilator 30 108 26 30 08/02/19 07:00 104 24 104/69 (81) 100 08/02/19 06:30 108 24 08/02/19 06:00 109 24 111/70 (84) 100 08/02/19 05:00 106 26 101/74 (83) 100 08/02/19 04:00 Mechanical Ventilator 08/02/19 04:00 30 08/02/19 04:00 99.5 112 19 114/70 (85) 99 08/02/19 04:00 112 08/02/19 03:32 111 23 100 Mechanical Ventilator 30 112 26 30 08/02/19 03:00 114 27 121/71 (88) 100 08/02/19 02:00 112 33 134/81 (98) 100 08/02/19 01:00 118 21 105/68 (80) 100 08/02/19 00:00 121 08/02/19 00:00 98.8 119 27 124/79 (94) 100 08/02/19 00:00 Mechanical Ventilator 08/02/19 00:00 30 08/01/19 23:41 119 26 100 Mechanical Ventilator 30 118 26 30 08/01/19 23:00 120 24 125/82 (96) 100 08/01/19 22:00 117 26 123/74 (90) 100 08/01/19 21:00 121 26 118/72 (87) 100 08/01/19 20:06 127 28 100 Mechanical Ventilator 30 126 26 30 08/01/19 20:00 128 08/01/19 20:00 100.2 129 30 131/76 (94) 100 08/01/19 20:00 Mechanical Ventilator 08/01/19 20:00 30 08/01/19 19:00 129 35 124/82 (96) 100 08/01/19 18:00 120 20 123/80 (94) 100 08/01/19 17:00 111 19 113/78 (90) 100 08/01/19 16:00 30 08/01/19 16:00 108 08/01/19 16:00 98.7 111 13 114/71 (85) 100 08/01/19 16:00 Mechanical Ventilator 08/01/19 15:57 109/71 Accucheck: 189 Critical Care - Subjective ROS Limited/Unobtainable: No Condition: stable FI02: 30 Vent Support Breath Rate: 26 Vent Support Mode: AC Vent Tidal Volume: 500 Sputum Amount: Moderate PEEP: 5.0 PIP: 24 Tube Feeding Amount: 45 I&O: Intake and Output 08/01/19 08/02/19 19:00 07:00 Intake Total 936.666 ml 540 ml Output Total 100 ml 300 ml Balance 836.666 ml 240 ml Free Water 30 ml IV Total 366.666 ml Tube Feeding 540 ml 540 ml Output Urine Total 0 ml 0 ml Stool Total 100 ml 300 ml ET-Tube: 7.5 ET Position: 24 Arturo Mckeon MD Aug 02, 2019 15:46
--- NOTE | 2019-08-02 17:40 | General Progress Note ---
Assessment/Plan Problem List: (1) HTN (hypertension) ICD Codes: I10 - Essential (primary) hypertension SNOMED: 91318999 (2) CASSANDRA (acute kidney injury) ICD Codes: N17.9 - Acute kidney failure, unspecified SNOMED: 1275588, 87853675 (3) Anemia in chronic kidney disease (CKD) ICD Codes: N18.9 - Chronic kidney disease, unspecified; D63.1 - Anemia in chronic kidney disease SNOMED: 170716442 (4) Renal failure ICD Codes: N19 - Unspecified kidney failure SNOMED: 35393751 (5) Respiratory failure requiring intubation ICD Codes: J96.90 - Respiratory failure, unspecified, unspecified whether with hypoxia or hypercapnia; A41.89 - Other specified sepsis SNOMED: 245737343, 511854357 (6) Pneumonia due to COVID-19 virus ICD Codes: U07.1 - COVID-19; J12.89 - Other viral pneumonia SNOMED: 690563289, 182048196 (7) Sepsis due to severe acute respiratory syndrome coronavirus 2 (SARS-CoV-2) ICD Codes: U07.1 - COVID-19; A41.89 - Other specified sepsis SNOMED: 135691990, 696468929 Status: progressing, unchanged, deteriorating Assessment/Plan: 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 afebrile trach/peg s/p septic shock s/p covid pna .repeat covid is neg Subjective ROS Limited/Unobtainable: Yes Allergies: Coded Allergies: No Known Allergies (Unverified , 05/28/19) Objective Last 24 Hour Vital Signs Date Time Temp Pulse Resp B/P (MAP) Pulse Ox O2 Delivery O2 Flow Rate FiO2 08/02/19 17:00 99 26 118/73 (88) 100 08/02/19 16:00 30 08/02/19 16:00 Mechanical Ventilator 08/02/19 16:00 98.2 93 20 108/70 (83) 99 08/02/19 15:34 92 08/02/19 15:05 97 26 99 Mechanical Ventilator 30 97 26 30 08/02/19 15:04 95 26 110/72 (85) 100 08/02/19 14:00 99 26 107/63 (78) 100 08/02/19 13:23 98.8 08/02/19 13:00 105 26 105/61 (76) 100 08/02/19 12:00 100.9 103 20 100/64 (76) 100 08/02/19 12:00 30 08/02/19 12:00 Mechanical Ventilator 08/02/19 12:00 106 08/02/19 11:05 110 26 96 Mechanical Ventilator 30 110 26 30 08/02/19 11:00 111 20 100/67 (78) 100 08/02/19 10:00 111 26 124/78 (93) 99 08/02/19 09:00 105 18 100/65 (77) 98 08/02/19 08:00 30 08/02/19 08:00 99.5 103 17 91/62 (72) 100 08/02/19 08:00 Mechanical Ventilator 08/02/19 07:55 100 08/02/19 07:55 103 08/02/19 07:05 108 26 99 Mechanical Ventilator 30 108 26 30 08/02/19 07:00 104 24 104/69 (81) 100 08/02/19 06:30 108 24 08/02/19 06:00 109 24 111/70 (84) 100 08/02/19 05:00 106 26 101/74 (83) 100 08/02/19 04:00 Mechanical Ventilator 08/02/19 04:00 30 08/02/19 04:00 99.5 112 19 114/70 (85) 99 08/02/19 04:00 112 08/02/19 03:32 111 23 100 Mechanical Ventilator 30 112 26 30 08/02/19 03:00 114 27 121/71 (88) 100 08/02/19 02:00 112 33 134/81 (98) 100 08/02/19 01:00 118 21 105/68 (80) 100 08/02/19 00:00 121 08/02/19 00:00 98.8 119 27 124/79 (94) 100 08/02/19 00:00 Mechanical Ventilator 08/02/19 00:00 30 08/01/19 23:41 119 26 100 Mechanical Ventilator 30 118 26 30 08/01/19 23:00 120 24 125/82 (96) 100 08/01/19 22:00 117 26 123/74 (90) 100 08/01/19 21:00 121 26 118/72 (87) 100 08/01/19 20:06 127 28 100 Mechanical Ventilator 30 126 26 30 08/01/19 20:00 128 08/01/19 20:00 100.2 129 30 131/76 (94) 100 08/01/19 20:00 Mechanical Ventilator 08/01/19 20:00 30 08/01/19 19:00 129 35 124/82 (96) 100 08/01/19 18:00 120 20 123/80 (94) 100 Intake and Output 08/01/19 08/02/19 19:00 07:00 Intake Total 936.666 ml 540 ml Output Total 100 ml 300 ml Balance 836.666 ml 240 ml Free Water 30 ml IV Total 366.666 ml Tube Feeding 540 ml 540 ml Output Urine Total 0 ml 0 ml Stool Total 100 ml 300 ml Laboratory Tests 08/02/19 05:25: White Blood Count 15.5H, Red Blood Count 3.40L, Hemoglobin 9.8L, Hematocrit 33.0L, Mean Corpuscular Volume 97, Mean Corpuscular Hemoglobin 28.7, Mean Corpuscular Hemoglobin Concent 29.6L, Red Cell Distribution Width 18.3H, Platelet Count 403, Mean Platelet Volume 7.3, Neutrophils (%) (Auto) 79.4H, Lymphocytes (%) (Auto) 12.6L, Monocytes (%) (Auto) 5.3, Eosinophils (%) (Auto) 2.2, Basophils (%) (Auto) 0.5, Sodium Level 142, Potassium Level 2.9L, Chloride Level 100, Carbon Dioxide Level 28, Anion Gap 14, Blood Urea Nitrogen 49H, Creatinine 7.5H, Estimat Glomerular Filtration Rate 7.3, Glucose Level 181H, Calcium Level 9.2, Phosphorus Level 3.7, Magnesium Level 2.5H, Total Bilirubin 0.3, Aspartate Amino Transf (AST/SGOT) 21, Alanine Aminotransferase (ALT/SGPT) 13, Alkaline Phosphatase 123H, C-Reactive Protein, Quantitative 1.8H, Pro-B- Type Natriuretic Peptide 15315D, Total Protein 8.7H, Albumin 2.9L, Globulin 5.8 , Albumin/Globulin Ratio 0.5L Height (Feet): 6 Height (Inches): 1.00 Weight (Pounds): 178 Karishma Mulligan MD Aug 02, 2019 17:40
[2019-08-02] MEDS: Dyna-Hex 2% Top Sol 2oz TOPIC SCH (20:17)
[2019-08-02] MEDS: Epoetin Alfa-EPBX(ESRD on dialysis)10,000 unit/ml vial SUBQ SCH (20:18)
--- NOTE | 2019-08-02 21:26 | Surgery Progress Note ---
Surgery Progress Note Subjective Procedure Performed Left internal jugular temporary hemodialysis catheter removal Additional Comments persistent leukocytosis off pressors exam unchanged Objective Last 24 Hour Vital Signs Date Time Temp Pulse Resp B/P (MAP) Pulse Ox O2 Delivery O2 Flow Rate FiO2 08/02/19 21:00 108 26 128/87 (101) 100 08/02/19 20:30 106 15 127/75 (92) 100 08/02/19 20:00 30 08/02/19 20:00 Mechanical Ventilator 08/02/19 20:00 101.4 107 20 133/76 (95) 100 08/02/19 19:30 107 29 100 Mechanical Ventilator 30 110 28 30 08/02/19 19:27 106 08/02/19 19:00 108 6 123/81 (95) 100 08/02/19 18:00 104 14 130/75 (93) 100 08/02/19 17:00 99 26 118/73 (88) 100 08/02/19 16:00 30 08/02/19 16:00 Mechanical Ventilator 08/02/19 16:00 98.2 93 20 108/70 (83) 99 08/02/19 15:34 92 08/02/19 15:05 97 26 99 Mechanical Ventilator 30 97 26 30 08/02/19 15:04 95 26 110/72 (85) 100 08/02/19 14:00 99 26 107/63 (78) 100 08/02/19 13:23 98.8 08/02/19 13:00 105 26 105/61 (76) 100 08/02/19 12:00 100.9 103 20 100/64 (76) 100 08/02/19 12:00 30 08/02/19 12:00 Mechanical Ventilator 08/02/19 12:00 106 08/02/19 11:05 110 26 96 Mechanical Ventilator 30 110 26 30 08/02/19 11:00 111 20 100/67 (78) 100 08/02/19 10:00 111 26 124/78 (93) 99 08/02/19 09:00 105 18 100/65 (77) 98 08/02/19 08:00 30 08/02/19 08:00 99.5 103 17 91/62 (72) 100 08/02/19 08:00 Mechanical Ventilator 08/02/19 07:55 100 08/02/19 07:55 103 08/02/19 07:05 108 26 99 Mechanical Ventilator 30 108 26 30 08/02/19 07:00 104 24 104/69 (81) 100 08/02/19 06:30 108 24 08/02/19 06:00 109 24 111/70 (84) 100 08/02/19 05:00 106 26 101/74 (83) 100 08/02/19 04:00 Mechanical Ventilator 08/02/19 04:00 30 08/02/19 04:00 99.5 112 19 114/70 (85) 99 08/02/19 04:00 112 08/02/19 03:32 111 23 100 Mechanical Ventilator 30 112 26 30 08/02/19 03:00 114 27 121/71 (88) 100 08/02/19 02:00 112 33 134/81 (98) 100 08/02/19 01:00 118 21 105/68 (80) 100 08/02/19 00:00 121 08/02/19 00:00 98.8 119 27 124/79 (94) 100 08/02/19 00:00 Mechanical Ventilator 08/02/19 00:00 30 08/01/19 23:41 119 26 100 Mechanical Ventilator 30 118 26 30 08/01/19 23:00 120 24 125/82 (96) 100 08/01/19 22:00 117 26 123/74 (90) 100 I&O Intake and Output 08/01/19 08/02/19 19:00 07:00 Intake Total 936.666 ml 540 ml Output Total 100 ml 300 ml Balance 836.666 ml 240 ml Free Water 30 ml IV Total 366.666 ml Tube Feeding 540 ml 540 ml Output Urine Total 0 ml 0 ml Stool Total 100 ml 300 ml Dressing: other Wound: other Drains: other Cardiovascular: RSR Respiratory: decreased breath sounds Abdomen: soft, present bowel sounds Extremities: no cyanosis Laboratory Tests Test 08/02/19 05:25 White Blood Count 15.5 K/UL (4.8-10.8) H Red Blood Count 3.40 M/UL (4.70-6.10) L Hemoglobin 9.8 G/DL (14.2-18.0) L Hematocrit 33.0 % (42.0-52.0) L Mean Corpuscular Volume 97 FL (80-99) Mean Corpuscular Hemoglobin 28.7 PG (27.0-31.0) Mean Corpuscular Hemoglobin Concent 29.6 G/DL (32.0-36.0) L Red Cell Distribution Width 18.3 % (11.6-14.8) H Platelet Count 403 K/UL (150-450) Mean Platelet Volume 7.3 FL (6.5-10.1) Neutrophils (%) (Auto) 79.4 % (45.0-75.0) H Lymphocytes (%) (Auto) 12.6 % (20.0-45.0) L Monocytes (%) (Auto) 5.3 % (1.0-10.0) Eosinophils (%) (Auto) 2.2 % (0.0-3.0) Basophils (%) (Auto) 0.5 % (0.0-2.0) Sodium Level 142 MMOL/L (136-145) Potassium Level 2.9 MMOL/L (3.5-5.1) L Chloride Level 100 MMOL/L (98-107) Carbon Dioxide Level 28 MMOL/L (21-32) Anion Gap 14 mmol/L (5-15) Blood Urea Nitrogen 49 mg/dL (7-18) H Creatinine 7.5 MG/DL (0.55-1.30) H Estimat Glomerular Filtration Rate 7.3 mL/min (>60) Glucose Level 181 MG/DL (74-106) H Calcium Level 9.2 MG/DL (8.5-10.1) Phosphorus Level 3.7 MG/DL (2.5-4.9) Magnesium Level 2.5 MG/DL (1.8-2.4) H Total Bilirubin 0.3 MG/DL (0.2-1.0) Aspartate Amino Transf (AST/SGOT) 21 U/L (15-37) Alanine Aminotransferase (ALT/SGPT) 13 U/L (12-78) Alkaline Phosphatase 123 U/L (46-116) H C-Reactive Protein, Quantitative 1.8 mg/dL (0.00-0.90) H Pro-B-Type Natriuretic Peptide 31570 pg/mL (0-125) H Total Protein 8.7 G/DL (6.4-8.2) H Albumin 2.9 G/DL (3.4-5.0) L Globulin 5.8 g/dL Albumin/Globulin Ratio 0.5 (1.0-2.7) L Plan Problems: (1) Suspected COVID-19 virus infection (2) HTN (hypertension) (3) CASSANDRA (acute kidney injury) Assessment & Plan: Needs urgent HD needs access patient okay and consented see note will follow with recs new line placed discussed with team and nephrology HD line functional when checked has TPA now please use appropriately Cathflo used again this flow during dialysis on 430 was low. Will monitor may need line change 5/4 plan for HD as per renal may need to take fluid off with HD edema anasarca dressings saturated and changed will monitor cont with HD IJ left line placed for HD given extent of prior line in place. leukocytosis blood cx negative may need to change out line new line okay HD going well Continue HD as tolerated May need pressors for HD as needed (4) Anemia in chronic kidney disease (CKD) (5) Anemia (6) Renal failure (7) Suspected COVID-19 virus infection Assessment & Plan: Pt deconditioned and despite all skin preventions Pt noted to have developed several pressure injuries. . Stable dry eschar noted to clefts of R and L ears. No erythema noted . DTPI noted to L trochanter. Base of injury is maroon in colour with marginal erythema along borders. Partially opened DTPI Sacrum, R and L Buttocks. Base of wound is maroon with two small open wounds L sacrum and L buttocks. Pt has an APM/MOMO Mattress overlay and is being positioned with pillows as per tolerance and within protocols. worsening despite medical efforts will cont to provide therapy Tx.Plan: Apply Cavilon Skin Barrier to both ears Daily and prn. Apply Moisture Barrier Paste to Sacrum,R and L Buttocks. Cover with Optifoam drsgs. Change every 3 days and PRN. Apply Cavilon Skin Barrier to R and L trochanter. Cover each site with Optifoam drsgs.Change every 7 days and PRN. Apply Cavilon Skin Barrier to both heels. Cover each heel with Optifoam drsg. Change every 7 days and prn. Off-load heels with pillow. Reposition at least every 2hours or as tolerated. APM/MOMO Mattress overlay. (8) COVID-19 Assessment & Plan: COVID + c diff negative febrile leukocytosis renal insufficiency see above cont resp care Rx as per ID worsening on vent support now cxr noted on pressors prognosis guarded repeat covid ++ weaning vent and pressors off slowly showing improvement slowly recovering will need trach as unable to wean vent safely called and spoke with country conservatorship. consent obtained s/p trach pending peg worsening on levo max (9) Sepsis Assessment & Plan: worsening leukocytosis febrile on pressors discussed with ID. lines evaluated and clean. he is septic on pressors and needs central access in difficult venous access patient blood cultures negative will monitor temp HD cath out now with permacath left tlc still subclavian needed line c/d/i Yaniv Mast Aug 02, 2019 21:26
[2019-08-03] VITALS (28 sets, daily range): BP systolic 92–140; BP diastolic 62–87
[2019-08-03] MEDS: Albuterol 90mcg Inhaler 8gm INH SCH ×6 (03:59→23:49)
[2019-08-03] MEDS: Acetaminophen 650mg/20.3ml NG PRN ×4 (04:29→20:13)
[2019-08-03] MEDS: Midodrine 10mg tab NG SCH ×3 (04:29→20:11)
[2019-08-03] MEDS: Metoclopramide 10mg/2ml Inj IVP SCH ×3 (04:29→20:11)
[2019-08-03 05:19] LABS: HEMATOCRIT 31.3 % (42.0-52.0); HEMOGLOBIN 9.4 G/DL (14.2-18.0); MEAN CORPUSCULAR VOLUME 96 FL (80-99); PLATELET COUNT 456 K/UL (150-450); RED BLOOD COUNT 3.25 M/UL (4.70-6.10); RED CELL DISTRIBUTION WIDTH 18.4 % (11.6-14.8); WHITE BLOOD COUNT 18.8 K/UL (4.8-10.8)
[2019-08-03 05:53] LABS: ALANINE AMINOTRANSFERASE 11 U/L (12-78); ALBUMIN 2.8 G/DL (3.4-5.0); ALBUMIN/GLOBULIN RATIO 0.5 (1.0-2.7); ALKALINE PHOSPHATASE 131 U/L (46-116); ANION GAP 12 mmol/L (5-15); ASPARTATE AMINO TRANSFERASE 21 U/L (15-37); BILIRUBIN,TOTAL 0.4 MG/DL (0.2-1.0); BLOOD UREA NITROGEN 63 mg/dL (7-18); CALCIUM 9.2 MG/DL (8.5-10.1); CARBON DIOXIDE 28 MMOL/L (21-32); CHLORIDE 102 MMOL/L (98-107); CREATININE 8.6 MG/DL (0.55-1.30); POTASSIUM 3.7 MMOL/L (3.5-5.1); SODIUM 142 MMOL/L (136-145)
[2019-08-03] MEDS: NovoLOG Insulin Flexpen SUBQ SCH ×3 (06:00→17:16)
--- NOTE | 2019-08-03 07:18 | Hematology/Onc Progress Note ---
Assessment/Plan Assessment/Plan Assessment and Recs: # Anemia of chronic disease, likely related ot underlying kidney disease has COIVD19++++++ --> hgb trend 9-->8-->7.3-->7.9-->6.8->9.5-->10->8.3-->7.7-->7.1-->8.9->8.8->7.7 -->8.1 ->7.9-->7.7 -->8.2-->8.1 -->7.9-->8.5 -->9->9.2-->9.5-->10.7 -->9.8--> 10.2-->11.8 -->11.9-->8.8 ->9.4->9-->8.3 -->8.5-->9.4->9.8-->9 --> transfuse as needed, hgb goal >7 --> no evidence of hemolysis --> peripheral smear has been reviewed --> epogen started 3 x a week ==>> transfuse 06/08, 06/15 # Leukocytosis likely related to suspected COVID-19 virus infection --> completed plaquenil --> trend smear as needed --> wbc trend: 4-->11-->14.5-->21-->26-->21->24--.28-->23-->19-->16.2-->21--> 11.2 -->12.5-->12.3-->12.4-->18.5-->18.5-->17->13-->18.2-->22.2-->25-->17.4-->17 -->14.2-->14-->16-->15.5-->9 --> pulm is aware --> on abx cefepime/vanc->zosyn/vanc-->dom/vanc-->dom-->levaquin/cefepime--> vanc --> pressors as needed --> 06/27 covid 19++ --> pressors as needed in icu # Thrombocytopenia/Lymphopenia --> likely related to covid19 --> plt 129k-->186k-->251-->285-->384 -->430-->539-->515-->447-->451-->404-->544 -->244 # Respiratory failure with covid19+ --> s/p vent/trach --> weaning # Possible Pneumonia --> abx completed --> 07/13 cxr: Improved right lung infiltrates. # Cardiomegaly # Transaminitis with Elevated AST # COPD # Chronic Kidney Disease --> per renal hd --> s/p right femoral cath 07/02 # Hypertension # peg # Dvt ppx lovenox Appreciate consultation and ernesto Rn Subjective Allergies: Coded Allergies: No Known Allergies (Unverified , 05/28/19) All Systems: reviewed and negative except above Subjective 06/01 nv, extremely agitated, not allowing labs draws, no night sweats, cbc ordered 06/02 confused, restraints, on abx and plaquenil, hgb 7.9, nrb 15 L 06/03 is with nonrebreather, but not compliant, remains confused 06/05 no bleeding, labs noted, no major bleeding, otherwise comfortable 06/06 labs reviewed, no bleeding, meds noted, no night sweats, on levo and nonrebreather 06/07 labs noted, no bleeding, meds reviewed, no bleeding, wbc higher 06/08 to get 2 units prbc, no night sweats, meds reviewed 06/09 is on cefepime and vanc, labs noted, ernesto Rn, no bleeding 06/10 no major changes, labs reviewed, wbc 28k, on abx, cefepime 06/12 remains in icu, labs noted, no night sweats or bleeding 06/13 sluggish pupils, remains agitated, per psych, no bleding, on vent, wbc sitll high 06/14 still confused, remains on vent, with ng, running nepro, on pressors 06/15 icu, febrile, non verbal, hgb 7.1, blood pending, completed plaq 06/16 remains in the icu, nonverbal, plan for hd tomorrow, ernesto rn 06/17 in icu, on pressor, nonverbal, on abx, no bleeding 06/19 no bleeding, nonverbal in icu, hgb is 7.7 06/20 on zosyn, tube feeds, vent, labs noted, in icu, nv 06/21 gettng hd as per renal, in icu, nv, no bleeding, tfs 06/22 icu, cxr with slight improvement, cooling blanket, weaning today 06/23 wewaning, in icu, on vent, abx, and pressors as needed, labs noted 06/24 failed weaning, off abx, completed plaquenil, hgb 8.1 06/26 icu, weaning for this am, afebrile, hgb 8 06/27 in icu, remains comotose, weaning started on peep, no night sweats 06/28 weaning today, off abx, restraints, no distress, h/h stable 06/29 covid 19+, failed weaning, no blood transfusion needed 06/30 icu, on vent, labs reviewed, no distress 07/01 in icu, may need trach, remains on hd per renal, labs noted 07/02 s/p right fem cath, failed wean, no new orders, h/h stable 07/03 is somewhat more responsive, on abx, no bleeding, weaning and HD today 07/04 hd as per renal, weaning off vent, no bleeding today 07/05 obtunded, no bleding overnight, with hd for tomorrow noted, vanc 07/08 no events, remains with trach/vent, ernesto Rn, no bleeding, cbc is noted 07/09 no overnight events, peg for friday pending consent 07/10 off pressors, vent, restraints, labs reviewed 07/11 no acute events is on pressors, intubated, agitated still 07/12 is resting comfortably, no bleeding, emds reviewed and noted 07/13 icu, no events, trach, cxr reviewed, 07/14 is onv ent, tachypneic and tachycardic, labs noted 07/15 remains confused, intubated, ernesto Rn, no bleeding 07/17 icu, cxr improving infiltrates, levo gtt, airborne/contact isolation 07/18 is on broad spectrum abx, is on levaquin and cefepime, wbc 16 agitated 07/19 icu, levo gtt, cxr unchanged, tachy, hd thursday 07/20 sedated, safety restraints, labs reviewed 07/21 hd was done yesterday, lower pressor requirements, wbc is worse, on abx 07/22 icu, meds and labs reviewed, vent, no distress 07/24 on vent, in icu, labs noted, remains agitated, and confused 07/25 remains obtunded, on vent, on pressor, hgb 9, wbc elev 07/26 icu, levo gtt, vent, iv abx, nonverbal 07/27 failed weaning, labs reviewed, repeat covid swab pending 07/28 labs are noted, no bleeding, on vent/trach gtube feeds dw rn 07/29 iuc, restraints, no new changes, vent 07/31 is asleep, comfortable, no events, labs reviewed, restraints+ 08/01 no events, agitated, no bleeding, meds noted, on gtube feeds 08/02 remains on vent, no bleeding, wbc higher 19, hgb 9, on abx Objective Objective Current Medications Medications (Trade) Dose Ordered Sig/Anthony Route PRN Reason Start Time Stop Time Status Last Admin Dose Admin Acetaminophen (Tylenol) 650 mg Q4H PRN NG For Pain 07/11/19 08:00 08/10/19 07:59 08/03/19 04:29 Albuterol Sulfate (Proventil MDI) 2 puff Q4HRT INH 06/06/19 23:00 08/30/19 18:59 08/03/19 07:13 Chlorhexidine Gluconate (Michelle-Hex 2%) 1 applic DAILY@2000 TOPIC 06/07/19 20:00 09/05/19 19:59 08/02/19 20:17 Dextrose (Dextrose 50%) 25 ml Q30M PRN IV Hypoglycemia 06/20/19 19:30 09/18/19 19:29 Dextrose (Dextrose 50%) 50 ml Q30M PRN IV Hypoglycemia 06/20/19 19:30 09/18/19 19:29 Dopamine HCl/ Dextrose 250 ml @ 0 mls/hr Q24H PRN IV For hypotension 06/13/19 08:15 09/11/19 08:14 07/17/19 08:46 Enoxaparin Sodium (Lovenox) 30 mg DAILY SUBQ 06/07/19 09:00 08/27/19 08:59 08/02/19 08:36 Epoetin Aftab (Epoetin Aftab(ESRD on dialysis)) 10,000 unit FRI- SUBQ 06/07/19 21:00 08/31/19 20:59 08/02/19 20:18 Fentanyl Citrate 250 ml @ 0 mls/hr Q24H IV 07/19/19 14:06 10/17/19 14:05 07/28/19 21:16 Haloperidol Lactate 5 mg/ Dextrose 56 ml @ 224 mls/hr Q6H PRN IVPB Agitation 07/11/19 15:00 08/25/19 14:59 07/30/19 23:26 Hydralazine HCl (Apresoline) 10 mg Q4H PRN IV Blood pressure over 160 systol 06/07/19 10:15 09/05/19 10:14 Insulin Aspart (NovoLOG) EVERY 6 HOURS SUBQ 06/21/19 00:00 09/19/19 00:00 08/02/19 23:49 Lorazepam (Ativan 2mg/ml 1ml) 0.5 mg Q2H PRN IV For Anxiety 08/01/19 23:00 08/08/19 22:59 08/02/19 23:48 Metoclopramide HCl (Reglan) 5 mg Q8HR IVP 07/29/19 18:00 08/28/19 17:59 08/03/19 04:29 Midodrine (Pro-Amatine) 10 mg Q8HR NG 07/29/19 14:00 10/15/19 10:29 08/03/19 04:29 Norepinephrine Bitartrate 8 mg/ Sodium Chloride 250 ml @ 0 mls/hr Q24H IV 07/23/19 16:15 08/22/19 16:14 07/24/19 17:41 Pantoprazole (Protonix) 40 mg DAILY IVP 07/27/19 09:00 08/26/19 08:59 08/02/19 08:35 Vancomycin HCl (Vanco pharmacy to dose) 1 ea DAILY PRN MISC Per rx protocol 07/20/19 10:45 08/19/19 10:44 Last 24 Hour Vital Signs Date Time Temp Pulse Resp B/P (MAP) Pulse Ox O2 Delivery O2 Flow Rate FiO2 08/03/19 07:10 101 26 100 Mechanical Ventilator 30 98 26 30 08/03/19 06:09 98 26 08/03/19 06:00 99 20 111/68 (82) 100 08/03/19 05:11 99.4 08/03/19 05:00 99.4 102 23 118/72 (87) 100 08/03/19 04:00 99.8 106 23 109/72 (84) 100 08/03/19 04:00 Mechanical Ventilator 08/03/19 04:00 106 08/03/19 04:00 30 08/03/19 03:30 108 26 100 Mechanical Ventilator 30 109 26 30 08/03/19 03:00 111 28 137/86 (103) 100 08/03/19 02:30 113 20 137/87 (104) 100 08/03/19 02:00 112 28 121/85 (97) 100 08/03/19 01:00 119 26 124/85 (98) 100 08/03/19 00:00 99.7 121 33 124/85 (98) 100 08/03/19 00:00 Mechanical Ventilator 08/03/19 00:00 30 08/02/19 23:44 125 08/02/19 23:30 124 34 30 08/02/19 23:12 110 31 129/87 (101) 100 08/02/19 23:00 108 36 162/83 (109) 100 08/02/19 22:00 100.5 103 26 136/86 (103) 100 08/02/19 21:00 108 26 128/87 (101) 100 08/02/19 20:30 106 15 127/75 (92) 100 08/02/19 20:00 30 08/02/19 20:00 Mechanical Ventilator 08/02/19 20:00 101.4 107 20 133/76 (95) 100 08/02/19 19:30 107 29 100 Mechanical Ventilator 30 110 28 30 08/02/19 19:27 106 08/02/19 19:00 108 6 123/81 (95) 100 08/02/19 18:00 104 14 130/75 (93) 100 08/02/19 17:00 99 26 118/73 (88) 100 08/02/19 16:00 30 08/02/19 16:00 Mechanical Ventilator 08/02/19 16:00 98.2 93 20 108/70 (83) 99 08/02/19 15:34 92 08/02/19 15:05 97 26 99 Mechanical Ventilator 30 97 26 30 08/02/19 15:04 95 26 110/72 (85) 100 08/02/19 14:00 99 26 107/63 (78) 100 08/02/19 13:00 105 26 105/61 (76) 100 08/02/19 12:00 100.9 103 20 100/64 (76) 100 08/02/19 12:00 30 08/02/19 12:00 Mechanical Ventilator 08/02/19 12:00 106 08/02/19 11:05 110 26 96 Mechanical Ventilator 30 110 26 30 08/02/19 11:00 111 20 100/67 (78) 100 08/02/19 10:00 111 26 124/78 (93) 99 08/02/19 09:00 105 18 100/65 (77) 98 08/02/19 08:00 30 08/02/19 08:00 99.5 103 17 91/62 (72) 100 08/02/19 08:00 Mechanical Ventilator 08/02/19 07:55 100 08/02/19 07:55 103 08/02/19 07:05 108 26 99 Mechanical Ventilator 30 108 26 30 08/02/19 07:00 104 24 104/69 (81) 100 08/02/19 06:30 108 24 08/02/19 06:00 109 24 111/70 (84) 100 08/02/19 05:00 106 26 101/74 (83) 100 08/02/19 04:00 Mechanical Ventilator 08/02/19 04:00 30 08/02/19 04:00 99.5 112 19 114/70 (85) 99 08/02/19 04:00 112 08/02/19 03:32 111 23 100 Mechanical Ventilator 30 112 26 30 08/02/19 03:00 114 27 121/71 (88) 100 08/02/19 02:00 112 33 134/81 (98) 100 08/02/19 01:00 118 21 105/68 (80) 100 08/02/19 00:00 121 08/02/19 00:00 98.8 119 27 124/79 (94) 100 08/02/19 00:00 Mechanical Ventilator 08/02/19 00:00 30 08/01/19 23:41 119 26 100 Mechanical Ventilator 30 118 26 30 08/01/19 23:00 120 24 125/82 (96) 100 08/01/19 22:00 117 26 123/74 (90) 100 08/01/19 21:00 121 26 118/72 (87) 100 08/01/19 20:06 127 28 100 Mechanical Ventilator 30 126 26 30 08/01/19 20:00 128 08/01/19 20:00 100.2 129 30 131/76 (94) 100 08/01/19 20:00 Mechanical Ventilator 08/01/19 20:00 30 08/01/19 19:00 129 35 124/82 (96) 100 08/01/19 18:00 120 20 123/80 (94) 100 08/01/19 17:00 111 19 113/78 (90) 100 08/01/19 16:00 30 08/01/19 16:00 108 08/01/19 16:00 98.7 111 13 114/71 (85) 100 08/01/19 16:00 Mechanical Ventilator 08/01/19 15:57 109/71 08/01/19 15:00 113 10 94/67 (76) 100 08/01/19 14:44 117 26 100 Mechanical Ventilator 30 117 26 30 08/01/19 14:00 118 19 121/76 (91) 100 08/01/19 13:00 110 17 127/71 (89) 100 08/01/19 12:00 Mechanical Ventilator 08/01/19 12:00 122 08/01/19 12:00 30 08/01/19 12:00 98.8 115 26 104/70 (81) 99 08/01/19 11:22 100 08/01/19 11:19 121 32 30 08/01/19 11:15 30 08/01/19 11:00 127 36 122/77 (92) 100 08/01/19 10:00 111 35 117/70 (86) 100 08/01/19 09:00 110 34 124/75 (91) 100 08/01/19 08:30 30 08/01/19 08:22 102 36 30 08/01/19 08:19 100 26 100 Mechanical Ventilator 30 98 26 30 08/01/19 08:00 100.4 107 25 104/67 (79) 100 6/21/20 08:00 106 08/01/19 08:00 Mechanical Ventilator 08/01/19 08:00 30 Intake and Output 08/02/19 08/03/19 19:00 07:00 Intake Total 840 ml 640 ml Output Total 100 ml 0 ml Balance 740 ml 640 ml Free Water 200 ml 100 ml IV Total 100 ml Tube Feeding 540 ml 495 ml Blood Product 45 ml Output Urine Total 0 ml 0 ml Stool Total 100 ml Labs Test 08/01/19 04:18 08/02/19 05:25 08/03/19 04:30 Random Vancomycin Level 17.9 ug/mL White Blood Count 15.5 K/UL (4.8-10.8) 18.8 K/UL (4.8-10.8) Red Blood Count 3.40 M/UL (4.70-6.10) 3.25 M/UL (4.70-6.10) Hemoglobin 9.8 G/DL (14.2-18.0) 9.4 G/DL (14.2-18.0) Hematocrit 33.0 % (42.0-52.0) 31.3 % (42.0-52.0) Mean Corpuscular Volume 97 FL (80-99) 96 FL (80-99) Mean Corpuscular Hemoglobin 28.7 PG (27.0-31.0) 29.0 PG (27.0-31.0) Mean Corpuscular Hemoglobin Concent 29.6 G/DL (32.0-36.0) 30.1 G/DL (32.0-36.0) Red Cell Distribution Width 18.3 % (11.6-14.8) 18.4 % (11.6-14.8) Platelet Count 403 K/UL (150-450) 456 K/UL (150-450) Mean Platelet Volume 7.3 FL (6.5-10.1) 7.5 FL (6.5-10.1) Neutrophils (%) (Auto) 79.4 % (45.0-75.0) % (45.0-75.0) Lymphocytes (%) (Auto) 12.6 % (20.0-45.0) % (20.0-45.0) Monocytes (%) (Auto) 5.3 % (1.0-10.0) % (1.0-10.0) Eosinophils (%) (Auto) 2.2 % (0.0-3.0) % (0.0-3.0) Basophils (%) (Auto) 0.5 % (0.0-2.0) % (0.0-2.0) Sodium Level 142 MMOL/L (136-145) 142 MMOL/L (136-145) Potassium Level 2.9 MMOL/L (3.5-5.1) 3.7 MMOL/L (3.5-5.1) Chloride Level 100 MMOL/L (98-107) 102 MMOL/L (98-107) Carbon Dioxide Level 28 MMOL/L (21-32) 28 MMOL/L (21-32) Anion Gap 14 mmol/L (5-15) 12 mmol/L (5-15) Blood Urea Nitrogen 49 mg/dL (7-18) 63 mg/dL (7-18) Creatinine 7.5 MG/DL (0.55-1.30) 8.6 MG/DL (0.55-1.30) Estimat Glomerular Filtration Rate 7.3 mL/min (>60) 6.2 mL/min (>60) Glucose Level 181 MG/DL (74-106) 120 MG/DL (74-106) Calcium Level 9.2 MG/DL (8.5-10.1) 9.2 MG/DL (8.5-10.1) Phosphorus Level 3.7 MG/DL (2.5-4.9) 2.0 MG/DL (2.5-4.9) Magnesium Level 2.5 MG/DL (1.8-2.4) 2.5 MG/DL (1.8-2.4) Total Bilirubin 0.3 MG/DL (0.2-1.0) 0.4 MG/DL (0.2-1.0) Aspartate Amino Transf (AST/SGOT) 21 U/L (15-37) 21 U/L (15-37) Alanine Aminotransferase (ALT/SGPT) 13 U/L (12-78) 11 U/L (12-78) Alkaline Phosphatase 123 U/L (46-116) 131 U/L (46-116) C-Reactive Protein, Quantitative 1.8 mg/dL (0.00-0.90) 1.8 mg/dL (0.00-0.90) Pro-B-Type Natriuretic Peptide 42195 pg/mL (0-125) 99063 pg/mL (0-125) Total Protein 8.7 G/DL (6.4-8.2) 8.3 G/DL (6.4-8.2) Albumin 2.9 G/DL (3.4-5.0) 2.8 G/DL (3.4-5.0) Globulin 5.8 g/dL 5.5 g/dL Albumin/Globulin Ratio 0.5 (1.0-2.7) 0.5 (1.0-2.7) Height (Feet): 6 Height (Inches): 1.00 Weight (Pounds): 162 Objective General: nv, confused, sedated Heent: bilateral eye normal inspection, bilateral eye PERRL ++Ng Respiratory: normal breath sounds, no respiratory distress, intubated/vent +++ trach+++ Cardiovascular: regular rate, rhythm, no edema Gastrointestinal: normal inspection, soft, non-distended, peg+ Rectal: deferred Musculoskeletal: normal range of motion, non-tender, R fem cath++ Neurologic: alert, motor strength/tone normal, sensory intact, responsive, speech normal Skin: Decubitus/Ulcer - See RN skin exam. : jamaal+ Greg Cabral MD Aug 03, 2019 07:17
[2019-08-03] MEDS: Pantoprazole Inj IVP SCH (08:33)
[2019-08-03] MEDS: Enoxaparin 30mg Inj SUBQ SCH (08:33)
[2019-08-03] MEDS ORDERED: Phospha 250 Neutral tab GT SCH (09:00)
--- NOTE | 2019-08-03 09:34 | Infectious Diseases Prog Note ---
Assessment/Plan Assessment/Plan IMPRESSION: 1. COVID19 pneumonia Positive: 05/27, 05/31 , 06/05, 06/09 ,5, 06/19, 06/23, 06/27, 07/03, 07/15, 07/29 Negative: 07/26 2. MRSA carrier. 3. Chronic kidney disease , end-stage renal disease. 4. COPD. 5. Hypertension. 6. Anemia. 7. Hypothyroidism. 8. Hyperlipidemia. 9. Major depression. 10. Leukocytosis 11. Hypotension 12. Hepatitis C 13. Hyperuricemia 14. Diarrhea 15. septic shock 16. Leukocytosis worsening 17. Pneumonia with Staph aureus ( MRSA) 18. Bacteremia with Staph coagulase negative RECOMMENDATIONS: Continue IV Vancomycin, add Zosyn Improving CXR Case was D/W RN Subjective ROS Limited/Unobtainable: Yes Constitutional: Reports: fever, other - last night Neurologic: Reports: confusion, other - on restraint Allergies: Coded Allergies: No Known Allergies (Unverified , 05/28/19) Objective Vital Signs Last 24 Hour Vital Signs Date Time Temp Pulse Resp B/P (MAP) Pulse Ox O2 Delivery O2 Flow Rate FiO2 08/03/19 09:00 106 18 92/66 (75) 100 08/03/19 08:30 102 21 100/68 (79) 100 08/03/19 08:00 30 08/03/19 08:00 98.5 102 18 116/62 (80) 100 08/03/19 08:00 Mechanical Ventilator 08/03/19 07:10 101 26 100 Mechanical Ventilator 30 98 26 30 08/03/19 07:00 102 23 113/66 (82) 100 08/03/19 06:09 98 26 08/03/19 06:00 99 20 111/68 (82) 100 08/03/19 05:11 99.4 08/03/19 05:00 99.4 102 23 118/72 (87) 100 08/03/19 04:00 99.8 106 23 109/72 (84) 100 08/03/19 04:00 Mechanical Ventilator 08/03/19 04:00 106 08/03/19 04:00 30 08/03/19 03:30 108 26 100 Mechanical Ventilator 30 109 26 30 08/03/19 03:00 111 28 137/86 (103) 100 08/03/19 02:30 113 20 137/87 (104) 100 08/03/19 02:00 112 28 121/85 (97) 100 08/03/19 01:00 119 26 124/85 (98) 100 08/03/19 00:00 99.7 121 33 124/85 (98) 100 08/03/19 00:00 Mechanical Ventilator 08/03/19 00:00 30 08/02/19 23:44 125 08/02/19 23:30 124 34 30 08/02/19 23:12 110 31 129/87 (101) 100 08/02/19 23:00 108 36 162/83 (109) 100 08/02/19 22:00 100.5 103 26 136/86 (103) 100 08/02/19 21:00 108 26 128/87 (101) 100 08/02/19 20:30 106 15 127/75 (92) 100 08/02/19 20:00 30 08/02/19 20:00 Mechanical Ventilator 08/02/19 20:00 101.4 107 20 133/76 (95) 100 08/02/19 19:30 107 29 100 Mechanical Ventilator 30 110 28 30 08/02/19 19:27 106 08/02/19 19:00 108 6 123/81 (95) 100 08/02/19 18:00 104 14 130/75 (93) 100 08/02/19 17:00 99 26 118/73 (88) 100 08/02/19 16:00 30 08/02/19 16:00 Mechanical Ventilator 08/02/19 16:00 98.2 93 20 108/70 (83) 99 08/02/19 15:34 92 08/02/19 15:05 97 26 99 Mechanical Ventilator 30 97 26 30 08/02/19 15:04 95 26 110/72 (85) 100 08/02/19 14:00 99 26 107/63 (78) 100 08/02/19 13:00 105 26 105/61 (76) 100 08/02/19 12:00 100.9 103 20 100/64 (76) 100 08/02/19 12:00 30 08/02/19 12:00 Mechanical Ventilator 08/02/19 12:00 106 08/02/19 11:05 110 26 96 Mechanical Ventilator 30 110 26 30 08/02/19 11:00 111 20 100/67 (78) 100 08/02/19 10:00 111 26 124/78 (93) 99 Height (Feet): 6 Height (Inches): 1.00 Weight (Pounds): 162 HEENT: status post trach Respiratory/Chest: other - on ventilator Cardiovascular: tachycardia, other - HD & central line Abdomen: soft, non tender, other - GT Extremities: no edema Neurologic/Psychiatric: aphasia Laboratory Tests Test 08/03/19 04:30 White Blood Count 18.8 K/UL (4.8-10.8) H Red Blood Count 3.25 M/UL (4.70-6.10) L Hemoglobin 9.4 G/DL (14.2-18.0) L Hematocrit 31.3 % (42.0-52.0) L Mean Corpuscular Volume 96 FL (80-99) Mean Corpuscular Hemoglobin 29.0 PG (27.0-31.0) Mean Corpuscular Hemoglobin Concent 30.1 G/DL (32.0-36.0) L Red Cell Distribution Width 18.4 % (11.6-14.8) H Platelet Count 456 K/UL (150-450) H Mean Platelet Volume 7.5 FL (6.5-10.1) Neutrophils (%) (Auto) % (45.0-75.0) Lymphocytes (%) (Auto) % (20.0-45.0) Monocytes (%) (Auto) % (1.0-10.0) Eosinophils (%) (Auto) % (0.0-3.0) Basophils (%) (Auto) % (0.0-2.0) Differential Total Cells Counted 100 Neutrophils % (Manual) 83 % (45-75) H Lymphocytes % (Manual) 8 % (20-45) L Monocytes % (Manual) 4 % (1-10) Eosinophils % (Manual) 5 % (0-3) H Basophils % (Manual) 0 % (0-2) Band Neutrophils 0 % (0-8) Platelet Estimate Increased H Platelet Morphology Normal Anisocytosis 1+ Sodium Level 142 MMOL/L (136-145) Potassium Level 3.7 MMOL/L (3.5-5.1) Chloride Level 102 MMOL/L (98-107) Carbon Dioxide Level 28 MMOL/L (21-32) Anion Gap 12 mmol/L (5-15) Blood Urea Nitrogen 63 mg/dL (7-18) H Creatinine 8.6 MG/DL (0.55-1.30) H Estimat Glomerular Filtration Rate 6.2 mL/min (>60) Glucose Level 120 MG/DL (74-106) H Calcium Level 9.2 MG/DL (8.5-10.1) Phosphorus Level 2.0 MG/DL (2.5-4.9) L Magnesium Level 2.5 MG/DL (1.8-2.4) H Total Bilirubin 0.4 MG/DL (0.2-1.0) Aspartate Amino Transf (AST/SGOT) 21 U/L (15-37) Alanine Aminotransferase (ALT/SGPT) 11 U/L (12-78) L Alkaline Phosphatase 131 U/L (46-116) H C-Reactive Protein, Quantitative 1.8 mg/dL (0.00-0.90) H Pro-B-Type Natriuretic Peptide 79060 pg/mL (0-125) H Total Protein 8.3 G/DL (6.4-8.2) H Albumin 2.8 G/DL (3.4-5.0) L Globulin 5.5 g/dL Albumin/Globulin Ratio 0.5 (1.0-2.7) L Current Medications Medications (Trade) Dose Ordered Sig/Anthony Route PRN Reason Start Time Stop Time Status Last Admin Dose Admin Acetaminophen (Tylenol) 650 mg Q4H PRN NG For Pain 07/11/19 08:00 08/10/19 07:59 08/03/19 04:29 Albuterol Sulfate (Proventil MDI) 2 puff Q4HRT INH 06/06/19 23:00 08/30/19 18:59 08/03/19 07:13 Chlorhexidine Gluconate (Michelle-Hex 2%) 1 applic DAILY@2000 TOPIC 06/07/19 20:00 09/05/19 19:59 08/02/19 20:17 Dextrose (Dextrose 50%) 25 ml Q30M PRN IV Hypoglycemia 06/20/19 19:30 09/18/19 19:29 Dextrose (Dextrose 50%) 50 ml Q30M PRN IV Hypoglycemia 06/20/19 19:30 09/18/19 19:29 Dopamine HCl/ Dextrose 250 ml @ 0 mls/hr Q24H PRN IV For hypotension 06/13/19 08:15 09/11/19 08:14 07/17/19 08:46 Enoxaparin Sodium (Lovenox) 30 mg DAILY SUBQ 06/07/19 09:00 08/27/19 08:59 08/03/19 08:33 Epoetin Aftab (Epoetin Aftab(ESRD on dialysis)) 10,000 unit SUBQ 06/07/19 21:00 08/31/19 20:59 08/02/19 20:18 Fentanyl Citrate 250 ml @ 0 mls/hr Q24H IV 07/19/19 14:06 10/17/19 14:05 07/28/19 21:16 Haloperidol Lactate 5 mg/ Dextrose 56 ml @ 224 mls/hr Q6H PRN IVPB Agitation 07/11/19 15:00 08/25/19 14:59 07/30/19 23:26 Hydralazine HCl (Apresoline) 10 mg Q4H PRN IV Blood pressure over 160 systol 06/07/19 10:15 09/05/19 10:14 Insulin Aspart (NovoLOG) EVERY 6 HOURS SUBQ 06/21/19 00:00 09/19/19 00:00 08/02/19 23:49 Lorazepam (Ativan 2mg/ml 1ml) 0.5 mg Q2H PRN IV For Anxiety 08/01/19 23:00 08/08/19 22:59 08/02/19 23:48 Metoclopramide HCl (Reglan) 5 mg Q8HR IVP 07/29/19 18:00 08/28/19 17:59 08/03/19 04:29 Midodrine (Pro-Amatine) 10 mg Q8HR NG 07/29/19 14:00 10/15/19 10:29 08/03/19 04:29 Norepinephrine Bitartrate 8 mg/ Sodium Chloride 250 ml @ 0 mls/hr Q24H IV 07/23/19 16:15 08/22/19 16:14 07/24/19 17:41 Pantoprazole (Protonix) 40 mg DAILY IVP 07/27/19 09:00 08/26/19 08:59 08/03/19 08:33 Phosphorus (Phospha 250 Neutral) 500 mg ONCE GT 08/03/19 09:00 08/03/19 10:00 Vancomycin HCl ([facility] pharmacy to dose) 1 ea DAILY PRN MISC Per rx protocol 07/20/19 10:45 08/19/19 10:44 Ted Leyva MD Aug 03, 2019 09:34
--- NOTE | 2019-08-03 10:43 | Cardiac Electrophysiology PN ---
Assessment/Plan Assessment/Plan 1. Elevated troponin. Low level and flat due to renal failure. On Aspirin. EF 60%. 2. S/P Septic shock. On Midodrine 10 tid and Abx 3. ESRD, on HD per Dr. Cole. S/P PermCath placement by IR 4. Resp failure due to COVID-19 positive pneumonia. On the Vent with 30% Fio2. S/P Tracheostomy 07/08/19. Now on pressure support 5. Dysphagia, S/P PEG 07/13/19 6. COPD. 7. Anemia. 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 Covid positive x 9. Tenth Covid was negative but the 11th one positive again S/P PermCath placement by IR Objective Last 24 Hour Vital Signs Date Time Temp Pulse Resp B/P (MAP) Pulse Ox O2 Delivery O2 Flow Rate FiO2 08/03/19 10:00 118 18 129/76 (93) 100 08/03/19 09:25 108 24 30 30 08/03/19 09:00 106 18 92/66 (75) 100 08/03/19 08:30 102 21 100/68 (79) 100 08/03/19 08:00 30 08/03/19 08:00 98.5 102 18 116/62 (80) 100 08/03/19 08:00 111 08/03/19 08:00 Mechanical Ventilator 08/03/19 07:10 101 26 100 Mechanical Ventilator 30 98 26 30 08/03/19 07:00 102 23 113/66 (82) 100 08/03/19 06:09 98 26 08/03/19 06:00 99 20 111/68 (82) 100 08/03/19 05:11 99.4 08/03/19 05:00 99.4 102 23 118/72 (87) 100 08/03/19 04:00 99.8 106 23 109/72 (84) 100 08/03/19 04:00 Mechanical Ventilator 08/03/19 04:00 106 08/03/19 04:00 30 08/03/19 03:30 108 26 100 Mechanical Ventilator 30 109 26 30 08/03/19 03:00 111 28 137/86 (103) 100 08/03/19 02:30 113 20 137/87 (104) 100 08/03/19 02:00 112 28 121/85 (97) 100 08/03/19 01:00 119 26 124/85 (98) 100 08/03/19 00:00 99.7 121 33 124/85 (98) 100 08/03/19 00:00 Mechanical Ventilator 08/03/19 00:00 30 08/02/19 23:44 125 08/02/19 23:30 124 34 30 08/02/19 23:12 110 31 129/87 (101) 100 08/02/19 23:00 108 36 162/83 (109) 100 08/02/19 22:00 100.5 103 26 136/86 (103) 100 08/02/19 21:00 108 26 128/87 (101) 100 08/02/19 20:30 106 15 127/75 (92) 100 08/02/19 20:00 30 08/02/19 20:00 Mechanical Ventilator 08/02/19 20:00 101.4 107 20 133/76 (95) 100 08/02/19 19:30 107 29 100 Mechanical Ventilator 30 110 28 30 08/02/19 19:27 106 08/02/19 19:00 108 6 123/81 (95) 100 08/02/19 18:00 104 14 130/75 (93) 100 08/02/19 17:00 99 26 118/73 (88) 100 08/02/19 16:00 30 08/02/19 16:00 Mechanical Ventilator 08/02/19 16:00 98.2 93 20 108/70 (83) 99 08/02/19 15:34 92 08/02/19 15:05 97 26 99 Mechanical Ventilator 30 97 26 30 08/02/19 15:04 95 26 110/72 (85) 100 08/02/19 14:00 99 26 107/63 (78) 100 08/02/19 13:00 105 26 105/61 (76) 100 08/02/19 12:00 100.9 103 20 100/64 (76) 100 08/02/19 12:00 30 08/02/19 12:00 Mechanical Ventilator 08/02/19 12:00 106 08/02/19 11:05 110 26 96 Mechanical Ventilator 30 110 26 30 08/02/19 11:00 111 20 100/67 (78) 100 Intake and Output 08/02/19 08/03/19 19:00 07:00 Intake Total 840 ml 685 ml Output Total 100 ml 0 ml Balance 740 ml 685 ml Free Water 200 ml 100 ml IV Total 100 ml Tube Feeding 540 ml 540 ml Blood Product 45 ml Output Urine Total 0 ml 0 ml Stool Total 100 ml Laboratory Tests Test 08/03/19 04:30 White Blood Count 18.8 K/UL (4.8-10.8) H Red Blood Count 3.25 M/UL (4.70-6.10) L Hemoglobin 9.4 G/DL (14.2-18.0) L Hematocrit 31.3 % (42.0-52.0) L Mean Corpuscular Volume 96 FL (80-99) Mean Corpuscular Hemoglobin 29.0 PG (27.0-31.0) Mean Corpuscular Hemoglobin Concent 30.1 G/DL (32.0-36.0) L Red Cell Distribution Width 18.4 % (11.6-14.8) H Platelet Count 456 K/UL (150-450) H Mean Platelet Volume 7.5 FL (6.5-10.1) Neutrophils (%) (Auto) % (45.0-75.0) Lymphocytes (%) (Auto) % (20.0-45.0) Monocytes (%) (Auto) % (1.0-10.0) Eosinophils (%) (Auto) % (0.0-3.0) Basophils (%) (Auto) % (0.0-2.0) Differential Total Cells Counted 100 Neutrophils % (Manual) 83 % (45-75) H Lymphocytes % (Manual) 8 % (20-45) L Monocytes % (Manual) 4 % (1-10) Eosinophils % (Manual) 5 % (0-3) H Basophils % (Manual) 0 % (0-2) Band Neutrophils 0 % (0-8) Platelet Estimate Increased H Platelet Morphology Normal Anisocytosis 1+ Sodium Level 142 MMOL/L (136-145) Potassium Level 3.7 MMOL/L (3.5-5.1) Chloride Level 102 MMOL/L (98-107) Carbon Dioxide Level 28 MMOL/L (21-32) Anion Gap 12 mmol/L (5-15) Blood Urea Nitrogen 63 mg/dL (7-18) H Creatinine 8.6 MG/DL (0.55-1.30) H Estimat Glomerular Filtration Rate 6.2 mL/min (>60) Glucose Level 120 MG/DL (74-106) H Calcium Level 9.2 MG/DL (8.5-10.1) Phosphorus Level 2.0 MG/DL (2.5-4.9) L Magnesium Level 2.5 MG/DL (1.8-2.4) H Total Bilirubin 0.4 MG/DL (0.2-1.0) Aspartate Amino Transf (AST/SGOT) 21 U/L (15-37) Alanine Aminotransferase (ALT/SGPT) 11 U/L (12-78) L Alkaline Phosphatase 131 U/L (46-116) H C-Reactive Protein, Quantitative 1.8 mg/dL (0.00-0.90) H Pro-B-Type Natriuretic Peptide 89298 pg/mL (0-125) H Total Protein 8.3 G/DL (6.4-8.2) H Albumin 2.8 G/DL (3.4-5.0) L Globulin 5.5 g/dL Albumin/Globulin Ratio 0.5 (1.0-2.7) L Objective HEAD AND NECK: No JVD. Tracheostomy in place. Left IJ HD catheter now in place Right IJ PermCath in place LUNGS: Decreased breath sounds. CARDIOVASCULAR: Regular S1 and S2. Tachycardic. ABDOMEN: Soft. PEG in place EXTREMITIES: No pitting edema. Gio Baker MD Aug 03, 2019 10:43
--- NOTE | 2019-08-03 10:49 | General Progress Note ---
Assessment/Plan Status: progressing, unchanged, deteriorating Assessment/Plan: 1. Diabetes. 2. Hypertension. 3. Coronary artery disease. 4. COPD. 5. Psychiatric disorder with schizophrenia. 6. History of hepatitis C. 7. HLP. 8. Chronic kidney disease, now with acute renal failure. 9. Anemia. 10. Hypothyroidism. 11. Spinal stenosis. 12. Constipation. 13. GERD. 14. COVID positive HD per nephrology fu labs icu care s/p PEG GTF monitor for residuals Subjective ROS Limited/Unobtainable: No Allergies: Coded Allergies: No Known Allergies (Unverified , 05/28/19) Objective Last 24 Hour Vital Signs Date Time Temp Pulse Resp B/P (MAP) Pulse Ox O2 Delivery O2 Flow Rate FiO2 08/03/19 10:00 118 18 129/76 (93) 100 08/03/19 09:25 108 24 30 30 08/03/19 09:00 106 18 92/66 (75) 100 08/03/19 08:30 102 21 100/68 (79) 100 08/03/19 08:00 30 08/03/19 08:00 98.5 102 18 116/62 (80) 100 08/03/19 08:00 111 08/03/19 08:00 Mechanical Ventilator 08/03/19 07:10 101 26 100 Mechanical Ventilator 30 98 26 30 08/03/19 07:00 102 23 113/66 (82) 100 08/03/19 06:09 98 26 08/03/19 06:00 99 20 111/68 (82) 100 08/03/19 05:11 99.4 08/03/19 05:00 99.4 102 23 118/72 (87) 100 08/03/19 04:00 99.8 106 23 109/72 (84) 100 08/03/19 04:00 Mechanical Ventilator 08/03/19 04:00 106 08/03/19 04:00 30 08/03/19 03:30 108 26 100 Mechanical Ventilator 30 109 26 30 08/03/19 03:00 111 28 137/86 (103) 100 08/03/19 02:30 113 20 137/87 (104) 100 08/03/19 02:00 112 28 121/85 (97) 100 08/03/19 01:00 119 26 124/85 (98) 100 08/03/19 00:00 99.7 121 33 124/85 (98) 100 08/03/19 00:00 Mechanical Ventilator 08/03/19 00:00 30 08/02/19 23:44 125 08/02/19 23:30 124 34 30 08/02/19 23:12 110 31 129/87 (101) 100 08/02/19 23:00 108 36 162/83 (109) 100 08/02/19 22:00 100.5 103 26 136/86 (103) 100 08/02/19 21:00 108 26 128/87 (101) 100 08/02/19 20:30 106 15 127/75 (92) 100 08/02/19 20:00 30 08/02/19 20:00 Mechanical Ventilator 08/02/19 20:00 101.4 107 20 133/76 (95) 100 08/02/19 19:30 107 29 100 Mechanical Ventilator 30 110 28 30 08/02/19 19:27 106 08/02/19 19:00 108 6 123/81 (95) 100 08/02/19 18:00 104 14 130/75 (93) 100 08/02/19 17:00 99 26 118/73 (88) 100 08/02/19 16:00 30 08/02/19 16:00 Mechanical Ventilator 08/02/19 16:00 98.2 93 20 108/70 (83) 99 08/02/19 15:34 92 08/02/19 15:05 97 26 99 Mechanical Ventilator 30 97 26 30 08/02/19 15:04 95 26 110/72 (85) 100 08/02/19 14:00 99 26 107/63 (78) 100 08/02/19 13:00 105 26 105/61 (76) 100 08/02/19 12:00 100.9 103 20 100/64 (76) 100 08/02/19 12:00 30 08/02/19 12:00 Mechanical Ventilator 08/02/19 12:00 106 08/02/19 11:05 110 26 96 Mechanical Ventilator 30 110 26 30 08/02/19 11:00 111 20 100/67 (78) 100 Intake and Output 08/02/19 08/03/19 19:00 07:00 Intake Total 840 ml 685 ml Output Total 100 ml 0 ml Balance 740 ml 685 ml Free Water 200 ml 100 ml IV Total 100 ml Tube Feeding 540 ml 540 ml Blood Product 45 ml Output Urine Total 0 ml 0 ml Stool Total 100 ml Laboratory Tests 08/03/19 04:30: White Blood Count 18.8H, Red Blood Count 3.25L, Hemoglobin 9.4L, Hematocrit 31.3L, Mean Corpuscular Volume 96, Mean Corpuscular Hemoglobin 29.0, Mean Corpuscular Hemoglobin Concent 30.1L, Red Cell Distribution Width 18.4H, Platelet Count 456H, Mean Platelet Volume 7.5, Neutrophils (%) (Auto) , Lymphocytes (%) (Auto) , Monocytes (%) (Auto) , Eosinophils (%) (Auto) , Basophils (%) (Auto) , Differential Total Cells Counted 100, Neutrophils % ( Manual) 83H, Lymphocytes % (Manual) 8L, Monocytes % (Manual) 4, Eosinophils % ( Manual) 5H, Basophils % (Manual) 0, Band Neutrophils 0, Platelet Estimate IncreasedH, Platelet Morphology Normal, Anisocytosis 1+, Sodium Level 142, Potassium Level 3.7, Chloride Level 102, Carbon Dioxide Level 28, Anion Gap 12, Blood Urea Nitrogen 63H, Creatinine 8.6H, Estimat Glomerular Filtration Rate 6.2 , Glucose Level 120H, Calcium Level 9.2, Phosphorus Level 2.0L, Magnesium Level 2.5H, Total Bilirubin 0.4, Aspartate Amino Transf (AST/SGOT) 21, Alanine Aminotransferase (ALT/SGPT) 11L, Alkaline Phosphatase 131H, C-Reactive Protein, Quantitative 1.8H, Pro-B-Type Natriuretic Peptide 53329L, Total Protein 8.3H, Albumin 2.8L, Globulin 5.5, Albumin/Globulin Ratio 0.5L Height (Feet): 6 Height (Inches): 1.00 Weight (Pounds): 162 General Appearance: confused EENT: normal ENT inspection Neck: supple Cardiovascular: normal rate Respiratory/Chest: decreased breath sounds Abdomen: normal bowel sounds, non tender, soft Extremities: non-tender Marito Ramires MD Aug 03, 2019 10:49
[2019-08-03] MEDS: Piperacillin/Tazobactam 3.375 GM in D5W 55 ML IVPB SCH ×2 (11:42→20:12)
[2019-08-03] MEDS: fentaNYL 2500mcg/NS 250ml 250 ML IV SCH (13:15)
--- NOTE | 2019-08-03 13:17 | Nephrology Progress Note ---
Assessment/Plan Problem List: (1) CASSANDRA (acute kidney injury) (2) Anemia in chronic kidney disease (CKD) (3) HTN (hypertension) (4) COVID-19 Assessment Acute renal failure most likely superimposed on chronic kidney disease Suspected COVID-19 virus infection Possible Pneumonia, lymphopenia, elevated AST Cardiomegaly, possible CHF COPD Hypertension Anemia, most likely related to chronic kidney disease Plan August 02: Lab reviewed. Low phosphorus replaced. Hemodialysis ordered for tomorrow. White blood cells over 18,000. August 01: Labs reviewed. Potassium replacement ordered. Remains full code on ventilator via trach. Continue per consultants. July 31: Dialyzed yesterday. No can panel today. Remains full code. Remains on ventilator. Being fed through PEG. Continue per consultants. July 30: Patient due for dialysis today. Labs are reviewed. Remains full code. Status post trach to ventilator. Status post PEG. July 29: Patient dialyzed yesterday. Due for dialysis tomorrow. Remains in ICU. Full code. Status post trach tube to ventilator. Status post PEG. July 28: Due for dialysis today. Labs reviewed. Full code. Patient trached and vented. July 27: Last COVID test negative. COVID test will be repeated tomorrow. Will order dialysis tomorrow. Remains full code. Medication list and labs reviewed. July 26: No labs done today. Dialysis done yesterday. Will check lab tomorrow. Dialysis as needed. July 25: Lab reviewed. Dialysis today. Discussed with RN. July 24: Lab reviewed. Do dialysis tomorrow. Discussed with RN. July 23: Lab reviewed. Dialyzed yesterday. Discussed with RN. Remains full code. Next dialysis July 25. Will check labs tomorrow. July 22: Labs reviewed. Due for dialysis today. Discussed with RN. Watch borderline low blood pressure. Discussed with dialysis nurse. July 21: Today's lab reviewed. Will arrange for dialysis tomorrow. Discussed with RN. Aim to keep the blood pressure above 100 systolic. Continue per consultants. July 20: Patient was dialyzed yesterday. Could not ultrafiltrate much due to low blood pressure. Discussed with SHANIQUE Dick today. No labs drawn today. Continue per consultants. July 19: Due for dialysis today. Discussed with SHANIQUE Dick. Continue per consultants. July 18: Dialyzed July 16. Will order dialysis tomorrow July 19. Continues to be on ventilator through trach. No labs done today. Continue per consultants. July 17: Dialyzed yesterday. Stable from renal standpoint of view. Remains full code. Status post trach on vent. Status post PEG. Continue per consultants. July 16: Dialysis today. Will resume Midodrin to prevent hypotension. Patient remains full code. July 15: Dialyzed yesterday, due for dialysis tomorrow. Labs and medication list reviewed. Continue per consultants. Patient remains full code. COVID-19 detected again. July 14: Patient currently on dialysis. This is continuation of dialysis from yesterday as yesterday's dialysis was cut short due to catheter malfunction. Labs and medication reviewed. Continue per consultants. July 13: Patient currently on hemodialysis. The dialysis catheter which is a intrajugular Kamlesh has poor flow. Will try TPA. Continue per consultants. July 12: Due for PEG today. Due for dialysis tomorrow. Continue per consultants. Discussed with RN. July 11: Plan for dialysis today. Discussed with RN. Data reviewed. July 10: Plan for dialysis tomorrow July 11. Waiting for consent to proceed with PEG. Continue per consultants. Medication reviewed. Labs reviewed. Discussed with RN. July 09: Dialyzed yesterday. Labs reviewed. Medication reviewed. Next hemodialysis July 11. July 08: Patient has tracheostomy now. Connected to ventilator. Due for dialysis today. Continue per consultants. Discussed with SHANIQUE Romero. July 07: Patient is due for tracheostomy today. Patient was last dialyzed July 05. Will order dialysis for tomorrow. July 06: Patient is intubated on ventilator however the plan is to extubate today. Patient was dialysis yesterday July 05. The dialysis time was cut short due to patient's respiratory distress. Only 1 L was removed during dialysis yesterday. Today's lab reviewed. Continue per consultants. Will arrange for dialysis as needed. July 05: Patient due for dialysis today. Remains intubated. Will schedule permacath placement in a.m. blood cultures on July 04 are negative. July 04: Patient was dialyzed yesterday. Due for dialysis tomorrow. Continues to be intubated. After tomorrow's dialysis will order a permacath. July 03: Dialysis is about to be started now Continues to be intubated Will plan to remove the femoral dialysis catheter and exchanged for a new temporary catheter per ID recommendation We will check surveillance blood culture tomorrow July 02: Patient was dialyzed yesterday and due for dialysis tomorrow Stable from renal standpoint W on dialysis Continue per consultants, weaning....... etc. July 01: Dialysis today Other status unchanged June 30: Due for dialysis tomorrow Remains intubated on ventilator Labs and medication reviewed Discussed with RN Stable from renal standpoint of view June 29: Dialyzed yesterday Due for dialysis tomorrow Stable from renal standpoint to view Keeps failing weaning process June 28: Patient due for dialysis today Stable from renal standpoint to view Continue per consultants June 27: Labs reviewed Due due for dialysis June 28 Discussed with SHANIQUE Dick Continue per consultants Remains intubated on ventilator June 26 Labs reviewed Dialyzed yesterday Started on weaning today Continue to monitor renal parameters June 25: On dialysis now Potassium supplement implemented Continue per consultants Next dialysis June 27June 15: Status unchanged Dialyzed yesterday will dialyze again tomorrow Potassium supplements given Discussed with RN June 14: Due dialysis today Status: Remains intubated on ventilator June 13: Status unchanged Dialyzed yesterday and duefordialysistomorrow Serum sodium stable today June 21 Remains intubated on ventilator Due dialysis today Emphasized high sodium bath for dialysis June 20: Remains intubated on ventilator Dialyzed June 19 next dialysis June 21 Serum sodium 128, will give 250 cc 3% saline Remains full code Discussed with RN Iron panel ordered June 19: Discussed with RN. Patient due for dialysis today. Continue pulmonary support. Remains full code. June 18: Patient dialyzed yesterday June 17 Serum sodium improved but still low Arrange for dialysis tomorrow June 19 Continue per consultants June 8: Due for dialysis today Today's lab reviewed, low serum sodium noted, Emphasized on high sodium bath to dialysis nurse Discussed with SHANIQUE Yuen June 7: Dialyzed yesterday Remains intubated Labs reviewed, serum sodium 131 Plan to dialyze tomorrow June 17 with high sodium bath Discussed with SHANIQUE Yuen June 6: Due for dialysis today Labs reviewed Discussed with RN Transfuse 1 unit of packed RBCs today for low hemoglobin of 7.1 June 5: Blood pressure well maintained Receive dialysis June 13 next hemodialysis June 15June 4: Discussed with RN in ICU Patient did not receive proper dialysis yesterday due to dialysis catheter malfunction Catheter to be adjusted today and dialyzed to be resumed today Continue per consultants Positive for COVID 28 June 2: Patient now intubated on mechanical ventilation Discussed with SHANIQUE Yuen, today June 12 Patient received dialysis yesterday June 10 next hemodialysis June 12 Blood pressure better maintained Today's labs reviewed Continue per consultants Previously patient received dialysis last evening June 05, next dialysis June 07 which was incomplete due to patient's hypotension Will start on midodrine for blood pressure support. Meanwhile continue other pressors as needed Previously Patient is doing poorly, septic, white blood cells are rising, Hypotension somewhat improved We will keep n.p.o. , NG tube for medications, and change medication to IV as needed Patient remains full code Monitor vancomycin level Previously: Patient pulled out his femoral catheter yesterday June 03 which was reinserted by Dr. Mast Patient scheduled for dialysis again June 04, which again was not done due to dialysis nurse citing catheter malfunction Meanwhile continue management per ID, pulmonary , and psych. Meanwhile white blood cell count is rising. Patient blood pressure borderline low. Will check ABG Previously May 31 : I believe patient need dialysis treatment He however needs to competency assessment if can make decisions or not I will communicate with Dr. Mulligan Previously: Per pulmonary and ID advice Adjust blood pressure medication Renal diet Anemia work-up 2D echocardiogram refused Kidney ultrasound refused Jules catheter Urine studies Per orders Subjective ROS Limited/Unobtainable: Yes Objective Objective Last 24 Hour Vital Signs Date Time Temp Pulse Resp B/P (MAP) Pulse Ox O2 Delivery O2 Flow Rate FiO2 08/03/19 13:00 99.5 113 26 119/72 (88) 100 08/03/19 12:00 117 08/03/19 12:00 Mechanical Ventilator 08/03/19 12:00 114 23 102/63 (76) 100 08/03/19 11:22 30 08/03/19 11:17 100 08/03/19 11:15 119 42 100 Mechanical Ventilator 30 119 38 30 08/03/19 11:00 122 41 132/80 (97) 100 08/03/19 10:00 118 18 129/76 (93) 100 08/03/19 09:55 30 08/03/19 09:25 108 24 30 30 08/03/19 09:00 106 18 92/66 (75) 100 08/03/19 08:30 102 21 100/68 (79) 100 08/03/19 08:00 30 08/03/19 08:00 98.5 102 18 116/62 (80) 100 08/03/19 08:00 111 08/03/19 08:00 Mechanical Ventilator 08/03/19 07:10 101 26 100 Mechanical Ventilator 30 98 26 30 08/03/19 07:00 102 23 113/66 (82) 100 08/03/19 06:09 98 26 08/03/19 06:00 99 20 111/68 (82) 100 08/03/19 05:11 99.4 08/03/19 05:00 99.4 102 23 118/72 (87) 100 08/03/19 04:00 99.8 106 23 109/72 (84) 100 08/03/19 04:00 Mechanical Ventilator 08/03/19 04:00 106 08/03/19 04:00 30 08/03/19 03:30 108 26 100 Mechanical Ventilator 30 109 26 30 08/03/19 03:00 111 28 137/86 (103) 100 08/03/19 02:30 113 20 137/87 (104) 100 08/03/19 02:00 112 28 121/85 (97) 100 08/03/19 01:00 119 26 124/85 (98) 100 08/03/19 00:00 99.7 121 33 124/85 (98) 100 08/03/19 00:00 Mechanical Ventilator 08/03/19 00:00 30 08/02/19 23:44 125 08/02/19 23:30 124 34 30 08/02/19 23:12 110 31 129/87 (101) 100 08/02/19 23:00 108 36 162/83 (109) 100 08/02/19 22:00 100.5 103 26 136/86 (103) 100 08/02/19 21:00 108 26 128/87 (101) 100 08/02/19 20:30 106 15 127/75 (92) 100 08/02/19 20:00 30 08/02/19 20:00 Mechanical Ventilator 08/02/19 20:00 101.4 107 20 133/76 (95) 100 08/02/19 19:30 107 29 100 Mechanical Ventilator 30 110 28 30 08/02/19 19:27 106 08/02/19 19:00 108 6 123/81 (95) 100 08/02/19 18:00 104 14 130/75 (93) 100 08/02/19 17:00 99 26 118/73 (88) 100 08/02/19 16:00 30 08/02/19 16:00 Mechanical Ventilator 08/02/19 16:00 98.2 93 20 108/70 (83) 99 08/02/19 15:34 92 08/02/19 15:05 97 26 99 Mechanical Ventilator 30 97 26 30 08/02/19 15:04 95 26 110/72 (85) 100 08/02/19 14:00 99 26 107/63 (78) 100 Intake and Output 08/02/19 08/03/19 19:00 07:00 Intake Total 840 ml 685 ml Output Total 100 ml 0 ml Balance 740 ml 685 ml Free Water 200 ml 100 ml IV Total 100 ml Tube Feeding 540 ml 540 ml Blood Product 45 ml Output Urine Total 0 ml 0 ml Stool Total 100 ml Laboratory Tests 08/03/19 04:30: White Blood Count 18.8H, Red Blood Count 3.25L, Hemoglobin 9.4L, Hematocrit 31.3L, Mean Corpuscular Volume 96, Mean Corpuscular Hemoglobin 29.0, Mean Corpuscular Hemoglobin Concent 30.1L, Red Cell Distribution Width 18.4H, Platelet Count 456H, Mean Platelet Volume 7.5, Neutrophils (%) (Auto) , Lymphocytes (%) (Auto) , Monocytes (%) (Auto) , Eosinophils (%) (Auto) , Basophils (%) (Auto) , Differential Total Cells Counted 100, Neutrophils % ( Manual) 83H, Lymphocytes % (Manual) 8L, Monocytes % (Manual) 4, Eosinophils % ( Manual) 5H, Basophils % (Manual) 0, Band Neutrophils 0, Platelet Estimate IncreasedH, Platelet Morphology Normal, Anisocytosis 1+, Sodium Level 142, Potassium Level 3.7, Chloride Level 102, Carbon Dioxide Level 28, Anion Gap 12, Blood Urea Nitrogen 63H, Creatinine 8.6H, Estimat Glomerular Filtration Rate 6.2 , Glucose Level 120H, Calcium Level 9.2, Phosphorus Level 2.0L, Magnesium Level 2.5H, Total Bilirubin 0.4, Aspartate Amino Transf (AST/SGOT) 21, Alanine Aminotransferase (ALT/SGPT) 11L, Alkaline Phosphatase 131H, C-Reactive Protein, Quantitative 1.8H, Pro-B-Type Natriuretic Peptide 44898P, Total Protein 8.3H, Albumin 2.8L, Globulin 5.5, Albumin/Globulin Ratio 0.5L Height (Feet): 6 Height (Inches): 1.00 Weight (Pounds): 162 General Appearance: no apparent distress EENT: other - Trached and vent Cardiovascular: tachycardia Respiratory/Chest: decreased breath sounds Abdomen: soft, other - PEG, feeding in process Objective No change Mic Cole MD Aug 03, 2019 13:17
--- NOTE | 2019-08-03 16:39 | Psych Consult Progress Note ---
Psychiatry Progress Note Psychiatry Progress Note Subjective the pt is confused and agitated. the pt was seen and evaluated face to face. the charge nurse was present. the pt cont to pull out tubes and IV lines. the pt is not re-directable. the pt is on psych meds Medications Current Medications Medications (Trade) Dose Ordered Sig/Anthony Route PRN Reason Start Time Stop Time Status Last Admin Dose Admin Acetaminophen (Tylenol) 650 mg Q4H PRN NG For Pain 07/11/19 08:00 08/10/19 07:59 08/03/19 10:09 Albuterol Sulfate (Proventil MDI) 2 puff Q4HRT INH 06/06/19 23:00 08/30/19 18:59 08/03/19 15:34 Chlorhexidine Gluconate (Michelle-Hex 2%) 1 applic DAILY@2000 TOPIC 06/07/19 20:00 09/05/19 19:59 08/02/19 20:17 Dextrose (Dextrose 50%) 25 ml Q30M PRN IV Hypoglycemia 06/20/19 19:30 09/18/19 19:29 Dextrose (Dextrose 50%) 50 ml Q30M PRN IV Hypoglycemia 06/20/19 19:30 09/18/19 19:29 Dopamine HCl/ Dextrose 250 ml @ 0 mls/hr Q24H PRN IV For hypotension 06/13/19 08:15 09/11/19 08:14 07/17/19 08:46 Enoxaparin Sodium (Lovenox) 30 mg DAILY SUBQ 06/07/19 09:00 08/27/19 08:59 08/03/19 08:33 Epoetin Aftab (Epoetin Aftab(ESRD on dialysis)) 10,000 unit FRI-FRI-FRI SUBQ 06/07/19 21:00 08/31/19 20:59 08/02/19 20:18 Fentanyl Citrate 250 ml @ 0 mls/hr Q24H IV 07/19/19 14:06 10/17/19 14:05 07/28/19 21:16 Haloperidol Lactate 5 mg/ Dextrose 56 ml @ 224 mls/hr Q6H PRN IVPB Agitation 07/11/19 15:00 08/25/19 14:59 07/30/19 23:26 Hydralazine HCl (Apresoline) 10 mg Q4H PRN IV Blood pressure over 160 systol 06/07/19 10:15 09/05/19 10:14 Insulin Aspart (NovoLOG) EVERY 6 HOURS SUBQ 06/21/19 00:00 09/19/19 00:00 08/03/19 11:43 Lorazepam (Ativan 2mg/ml 1ml) 0.5 mg Q2H PRN IV For Anxiety 08/01/19 23:00 08/08/19 22:59 08/02/19 23:48 Metoclopramide HCl (Reglan) 5 mg Q8HR IVP 07/29/19 18:00 08/28/19 17:59 08/03/19 13:39 Midodrine (Pro-Amatine) 10 mg Q8HR NG 07/29/19 14:00 10/15/19 10:29 08/03/19 13:39 Norepinephrine Bitartrate 8 mg/ Sodium Chloride 250 ml @ 0 mls/hr Q24H IV 07/23/19 16:15 08/22/19 16:14 07/24/19 17:41 Pantoprazole (Protonix) 40 mg DAILY IVP 07/27/19 09:00 08/26/19 08:59 08/03/19 08:33 Piperacillin Sod/ Tazobactam Sod 3.375 gm/Dextrose 55 ml @ 14 mls/hr Q12H IVPB 08/03/19 11:00 08/10/19 10:59 08/03/19 11:42 Vancomycin HCl (Vanco pharmacy to dose) 1 ea DAILY PRN MISC Per rx protocol 07/20/19 10:45 08/19/19 10:44 Allergies: Coded Allergies: No Known Allergies (Unverified , 05/28/19) Objective Data Height (Feet): 6 Height (Inches): 1.00 Weight (Pounds): 162 General Appearance: alert, confused, agitated Appearance: no abnormalities noted Behavior Mannerisms: poor eye contact Mental Status Exam - Affect: blunted Mental Status Exam - Mood: anxious, agitated Speech: clear Mental Status Exam - Thought P: goal-directed, tangential, confusion Mental Status Exam - Suicidal: not present Assessment/Plan [place] I: MDD chronic encephalopathy Status: progressing, unchanged, deteriorating Assessment/Plan: The pt benefits from restraints cont psychotropic meds dw nurse Guicho Pimentel MD Aug 03, 2019 16:39
--- NOTE | 2019-08-03 17:29 | Pulmonolgy Critical Care Note ---
Critical Care - Asmt/Plan Assessment/Plan: Impression: COVID-19 virus infection Pneumonia Respiratory failure on ventilator, wean as tolerated once off pressors CKD - on HD Hypotension on pressors previously Cardiomegaly Lymphopenia Elevated AST COPD Chronic Kidney Disease - HD H/o Hypertension Worsening anemia Plan: SP Tracheostomy / G tube Antibiotics per ID HD Pressors as needed AC - wean as tolerated 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 Monitor cultures/viral studies ICU care reviewed Hemodialysis per Renal medications/laboratory data/nursing notes/ICU care reviewed in detail note reviewed and edited care discussed with RN and RT ICU time spent >40 minutes Critical Care - Objective Last 24 Hour Vital Signs Date Time Temp Pulse Resp B/P (MAP) Pulse Ox O2 Delivery O2 Flow Rate FiO2 08/03/19 17:00 108 29 134/79 (97) 100 08/03/19 16:00 99.9 111 19 134/77 (96) 100 08/03/19 16:00 Mechanical Ventilator 08/03/19 16:00 30 08/03/19 15:32 105 28 100 Mechanical Ventilator 30 107 28 30 08/03/19 15:30 107 08/03/19 15:00 107 29 131/83 (99) 100 08/03/19 14:00 107 23 130/80 (97) 100 08/03/19 13:00 99.5 113 26 119/72 (88) 100 08/03/19 12:00 117 08/03/19 12:00 Mechanical Ventilator 08/03/19 12:00 114 23 102/63 (76) 100 08/03/19 11:22 30 08/03/19 11:17 100 08/03/19 11:15 119 42 100 Mechanical Ventilator 30 119 38 30 08/03/19 11:00 122 41 132/80 (97) 100 08/03/19 10:00 118 18 129/76 (93) 100 08/03/19 09:55 30 08/03/19 09:25 108 24 30 30 08/03/19 09:00 106 18 92/66 (75) 100 08/03/19 08:30 102 21 100/68 (79) 100 08/03/19 08:00 30 08/03/19 08:00 98.5 102 18 116/62 (80) 100 08/03/19 08:00 111 08/03/19 08:00 Mechanical Ventilator 08/03/19 07:10 101 26 100 Mechanical Ventilator 30 98 26 30 08/03/19 07:00 102 23 113/66 (82) 100 08/03/19 06:09 98 26 08/03/19 06:00 99 20 111/68 (82) 100 08/03/19 05:11 99.4 08/03/19 05:00 99.4 102 23 118/72 (87) 100 08/03/19 04:00 99.8 106 23 109/72 (84) 100 08/03/19 04:00 Mechanical Ventilator 08/03/19 04:00 106 08/03/19 04:00 30 08/03/19 03:30 108 26 100 Mechanical Ventilator 30 109 26 30 08/03/19 03:00 111 28 137/86 (103) 100 08/03/19 02:30 113 20 137/87 (104) 100 08/03/19 02:00 112 28 121/85 (97) 100 08/03/19 01:00 119 26 124/85 (98) 100 08/03/19 00:00 99.7 121 33 124/85 (98) 100 08/03/19 00:00 Mechanical Ventilator 08/03/19 00:00 30 08/02/19 23:44 125 08/02/19 23:30 124 34 30 08/02/19 23:12 110 31 129/87 (101) 100 08/02/19 23:00 108 36 162/83 (109) 100 08/02/19 22:00 100.5 103 26 136/86 (103) 100 08/02/19 21:00 108 26 128/87 (101) 100 08/02/19 20:30 106 15 127/75 (92) 100 08/02/19 20:00 30 08/02/19 20:00 Mechanical Ventilator 08/02/19 20:00 101.4 107 20 133/76 (95) 100 08/02/19 19:30 107 29 100 Mechanical Ventilator 30 110 28 30 08/02/19 19:27 106 08/02/19 19:00 108 6 123/81 (95) 100 08/02/19 18:00 104 14 130/75 (93) 100 Objective: WDWN NAD trach reduced breath sounds bilaterally without rhonchi or wheeze [id number] without MRG NABS nontender no HSM no CC mild edema reduced LOC Accucheck: 177 Critical Care - Subjective ROS Limited/Unobtainable: Yes Condition: critical EKG Rhythm: Sinus Rhythm FI02: 30 Vent Support Breath Rate: 26 Vent Support Mode: AC Vent Tidal Volume: 500 Sputum Amount: Small PEEP: 5.0 PIP: 30 Tube Feeding Amount: 45 I&O: Intake and Output 08/02/19 08/03/19 19:00 07:00 Intake Total 840 ml 685 ml Output Total 100 ml 0 ml Balance 740 ml 685 ml Free Water 200 ml 100 ml IV Total 100 ml Tube Feeding 540 ml 540 ml Blood Product 45 ml Output Urine Total 0 ml 0 ml Stool Total 100 ml ET-Tube: 7.5 ET Position: 24 Elliot Tineo MD Aug 03, 2019 17:29
--- NOTE | 2019-08-03 18:35 | Surgery Progress Note ---
Surgery Progress Note Subjective Procedure Performed Left internal jugular temporary hemodialysis catheter removal Additional Comments Worsening leukocytosis. Labs reviewed. Exam stable. Ill-appearing overall. On vent support Objective Last 24 Hour Vital Signs Date Time Temp Pulse Resp B/P (MAP) Pulse Ox O2 Delivery O2 Flow Rate FiO2 08/03/19 18:04 110 36 138/79 (98) 100 08/03/19 17:00 108 29 134/79 (97) 100 08/03/19 16:00 99.9 111 19 134/77 (96) 100 08/03/19 16:00 Mechanical Ventilator 08/03/19 16:00 30 08/03/19 15:32 105 28 100 Mechanical Ventilator 30 107 28 30 08/03/19 15:30 107 08/03/19 15:00 107 29 131/83 (99) 100 08/03/19 14:00 107 23 130/80 (97) 100 08/03/19 13:00 99.5 113 26 119/72 (88) 100 08/03/19 12:00 117 08/03/19 12:00 Mechanical Ventilator 08/03/19 12:00 114 23 102/63 (76) 100 08/03/19 11:22 30 08/03/19 11:17 100 08/03/19 11:15 119 42 100 Mechanical Ventilator 30 119 38 30 08/03/19 11:00 122 41 132/80 (97) 100 08/03/19 10:00 118 18 129/76 (93) 100 08/03/19 09:55 30 08/03/19 09:25 108 24 30 30 08/03/19 09:00 106 18 92/66 (75) 100 08/03/19 08:30 102 21 100/68 (79) 100 08/03/19 08:00 30 08/03/19 08:00 98.5 102 18 116/62 (80) 100 08/03/19 08:00 111 08/03/19 08:00 Mechanical Ventilator 08/03/19 07:10 101 26 100 Mechanical Ventilator 30 98 26 30 08/03/19 07:00 102 23 113/66 (82) 100 08/03/19 06:09 98 26 08/03/19 06:00 99 20 111/68 (82) 100 08/03/19 05:11 99.4 08/03/19 05:00 99.4 102 23 118/72 (87) 100 08/03/19 04:00 99.8 106 23 109/72 (84) 100 08/03/19 04:00 Mechanical Ventilator 08/03/19 04:00 106 08/03/19 04:00 30 08/03/19 03:30 108 26 100 Mechanical Ventilator 30 109 26 30 08/03/19 03:00 111 28 137/86 (103) 100 08/03/19 02:30 113 20 137/87 (104) 100 08/03/19 02:00 112 28 121/85 (97) 100 08/03/19 01:00 119 26 124/85 (98) 100 08/03/19 00:00 99.7 121 33 124/85 (98) 100 08/03/19 00:00 Mechanical Ventilator 08/03/19 00:00 30 08/02/19 23:44 125 08/02/19 23:30 124 34 30 08/02/19 23:12 110 31 129/87 (101) 100 08/02/19 23:00 108 36 162/83 (109) 100 08/02/19 22:00 100.5 103 26 136/86 (103) 100 08/02/19 21:00 108 26 128/87 (101) 100 08/02/19 20:30 106 15 127/75 (92) 100 08/02/19 20:00 30 08/02/19 20:00 Mechanical Ventilator 08/02/19 20:00 101.4 107 20 133/76 (95) 100 08/02/19 19:30 107 29 100 Mechanical Ventilator 30 110 28 30 08/02/19 19:27 106 08/02/19 19:00 108 6 123/81 (95) 100 I&O Intake and Output 08/02/19 08/03/19 19:00 07:00 Intake Total 840 ml 685 ml Output Total 100 ml 0 ml Balance 740 ml 685 ml Free Water 200 ml 100 ml IV Total 100 ml Tube Feeding 540 ml 540 ml Blood Product 45 ml Output Urine Total 0 ml 0 ml Stool Total 100 ml Dressing: saturated Wound: other Drains: other Cardiovascular: RSR Respiratory: decreased breath sounds Abdomen: soft, non-tender, present bowel sounds Extremities: edema, no cyanosis Laboratory Tests Test 08/03/19 04:30 White Blood Count 18.8 K/UL (4.8-10.8) H Red Blood Count 3.25 M/UL (4.70-6.10) L Hemoglobin 9.4 G/DL (14.2-18.0) L Hematocrit 31.3 % (42.0-52.0) L Mean Corpuscular Volume 96 FL (80-99) Mean Corpuscular Hemoglobin 29.0 PG (27.0-31.0) Mean Corpuscular Hemoglobin Concent 30.1 G/DL (32.0-36.0) L Red Cell Distribution Width 18.4 % (11.6-14.8) H Platelet Count 456 K/UL (150-450) H Mean Platelet Volume 7.5 FL (6.5-10.1) Neutrophils (%) (Auto) % (45.0-75.0) Lymphocytes (%) (Auto) % (20.0-45.0) Monocytes (%) (Auto) % (1.0-10.0) Eosinophils (%) (Auto) % (0.0-3.0) Basophils (%) (Auto) % (0.0-2.0) Differential Total Cells Counted 100 Neutrophils % (Manual) 83 % (45-75) H Lymphocytes % (Manual) 8 % (20-45) L Monocytes % (Manual) 4 % (1-10) Eosinophils % (Manual) 5 % (0-3) H Basophils % (Manual) 0 % (0-2) Band Neutrophils 0 % (0-8) Platelet Estimate Increased H Platelet Morphology Normal Anisocytosis 1+ Sodium Level 142 MMOL/L (136-145) Potassium Level 3.7 MMOL/L (3.5-5.1) Chloride Level 102 MMOL/L (98-107) Carbon Dioxide Level 28 MMOL/L (21-32) Anion Gap 12 mmol/L (5-15) Blood Urea Nitrogen 63 mg/dL (7-18) H Creatinine 8.6 MG/DL (0.55-1.30) H Estimat Glomerular Filtration Rate 6.2 mL/min (>60) Glucose Level 120 MG/DL (74-106) H Calcium Level 9.2 MG/DL (8.5-10.1) Phosphorus Level 2.0 MG/DL (2.5-4.9) L Magnesium Level 2.5 MG/DL (1.8-2.4) H Total Bilirubin 0.4 MG/DL (0.2-1.0) Aspartate Amino Transf (AST/SGOT) 21 U/L (15-37) Alanine Aminotransferase (ALT/SGPT) 11 U/L (12-78) L Alkaline Phosphatase 131 U/L (46-116) H C-Reactive Protein, Quantitative 1.8 mg/dL (0.00-0.90) H Pro-B-Type Natriuretic Peptide 57440 pg/mL (0-125) H Total Protein 8.3 G/DL (6.4-8.2) H Albumin 2.8 G/DL (3.4-5.0) L Globulin 5.5 g/dL Albumin/Globulin Ratio 0.5 (1.0-2.7) L Plan Problems: (1) Suspected COVID-19 virus infection (2) HTN (hypertension) (3) CASSANDRA (acute kidney injury) Assessment & Plan: Needs urgent HD needs access patient okay and consented see note will follow with recs new line placed discussed with team and nephrology HD line functional when checked has TPA now please use appropriately Cathflo used again this flow during dialysis on 430 was low. Will monitor may need line change 5/4 plan for HD as per renal may need to take fluid off with HD edema anasarca dressings saturated and changed will monitor cont with HD IJ left line placed for HD given extent of prior line in place. leukocytosis blood cx negative may need to change out line new line okay HD going well Continue HD as tolerated May need pressors for HD as needed (4) Anemia in chronic kidney disease (CKD) (5) Anemia (6) Renal failure (7) Suspected COVID-19 virus infection Assessment & Plan: Pt deconditioned and despite all skin preventions Pt noted to have developed several pressure injuries. . Stable dry eschar noted to clefts of R and L ears. No erythema noted . DTPI noted to L trochanter. Base of injury is maroon in colour with marginal erythema along borders. Partially opened DTPI Sacrum, R and L Buttocks. Base of wound is maroon with two small open wounds L sacrum and L buttocks. Pt has an APM/MOMO Mattress overlay and is being positioned with pillows as per tolerance and within protocols. worsening despite medical efforts will cont to provide therapy Tx.Plan: Apply Cavilon Skin Barrier to both ears Daily and prn. Apply Moisture Barrier Paste to Sacrum,R and L Buttocks. Cover with Optifoam drsgs. Change every 3 days and PRN. Apply Cavilon Skin Barrier to R and L trochanter. Cover each site with Optifoam drsgs.Change every 7 days and PRN. Apply Cavilon Skin Barrier to both heels. Cover each heel with Optifoam drsg. Change every 7 days and prn. Off-load heels with pillow. Reposition at least every 2hours or as tolerated. APM/MOMO Mattress overlay. (8) COVID-19 Assessment & Plan: COVID + c diff negative febrile leukocytosis renal insufficiency see above cont resp care Rx as per ID worsening on vent support now cxr noted on pressors prognosis guarded repeat covid ++ weaning vent and pressors off slowly showing improvement slowly recovering will need trach as unable to wean vent safely [facility] and [facility]. consent obtained s/p trach pending peg worsening on levo max (9) Sepsis Assessment & Plan: worsening leukocytosis febrile on pressors discussed with ID. lines evaluated and clean. he is septic on pressors and needs central access in difficult venous access patient blood cultures negative will monitor temp HD cath out now with permacath left tlc still subclavian needed line c/d/i Yaniv Mast Aug 03, 2019 18:35
[2019-08-03] MEDS ORDERED: NS 275ml ONE (19:06)
[2019-08-03] MEDS: LORazepam Inj 2mg/ml 1ml IV PRN (20:10)
[2019-08-03] MEDS: Dyna-Hex 2% Top Sol 2oz TOPIC SCH (20:13)
--- NOTE | 2019-08-03 21:25 | General Progress Note ---
Assessment/Plan Problem List: (1) HTN (hypertension) ICD Codes: I10 - Essential (primary) hypertension SNOMED: 60757082 (2) CASSANDRA (acute kidney injury) ICD Codes: N17.9 - Acute kidney failure, unspecified SNOMED: 9785506, 33631769 (3) Anemia in chronic kidney disease (CKD) ICD Codes: N18.9 - Chronic kidney disease, unspecified; D63.1 - Anemia in chronic kidney disease SNOMED: 481774901 (4) Renal failure ICD Codes: N19 - Unspecified kidney failure SNOMED: 44915275 (5) Respiratory failure requiring intubation ICD Codes: J96.90 - Respiratory failure, unspecified, unspecified whether with hypoxia or hypercapnia; A41.89 - Other specified sepsis SNOMED: 741120076, 033132884 (6) Pneumonia due to COVID-19 virus ICD Codes: U07.1 - COVID-19; J12.89 - Other viral pneumonia SNOMED: 372498699, 082538130 (7) Sepsis due to severe acute respiratory syndrome coronavirus 2 (SARS-CoV-2) ICD Codes: U07.1 - COVID-19; A41.89 - Other specified sepsis SNOMED: 905587897, 773083593 Status: progressing, unchanged, deteriorating Assessment/Plan: worsening leukocyosis sepsis on diaylsis poor prognosis needs ltac placement afebrile trach/peg s/p septic shock s/p covid pna Subjective ROS Limited/Unobtainable: Yes Allergies: Coded Allergies: No Known Allergies (Unverified , 05/28/19) Objective Last 24 Hour Vital Signs Date Time Temp Pulse Resp B/P (MAP) Pulse Ox O2 Delivery O2 Flow Rate FiO2 08/03/19 21:13 101.2 08/03/19 19:30 107 32 100 Mechanical Ventilator 30 108 30 30 08/03/19 19:00 107 23 131/80 (97) 100 08/03/19 18:04 110 36 138/79 (98) 100 08/03/19 17:00 108 29 134/79 (97) 100 08/03/19 16:00 99.9 111 19 134/77 (96) 100 08/03/19 16:00 Mechanical Ventilator 08/03/19 16:00 30 08/03/19 15:32 105 28 100 Mechanical Ventilator 30 107 28 30 6/23/20 15:30 107 08/03/19 15:00 107 29 131/83 (99) 100 08/03/19 14:00 107 23 130/80 (97) 100 08/03/19 13:00 99.5 113 26 119/72 (88) 100 08/03/19 12:00 117 08/03/19 12:00 Mechanical Ventilator 08/03/19 12:00 114 23 102/63 (76) 100 08/03/19 11:22 30 08/03/19 11:17 100 08/03/19 11:15 119 42 100 Mechanical Ventilator 30 119 38 30 08/03/19 11:00 122 41 132/80 (97) 100 08/03/19 10:00 118 18 129/76 (93) 100 08/03/19 09:55 30 08/03/19 09:25 108 24 30 30 08/03/19 09:00 106 18 92/66 (75) 100 08/03/19 08:30 102 21 100/68 (79) 100 08/03/19 08:00 30 08/03/19 08:00 98.5 102 18 116/62 (80) 100 08/03/19 08:00 111 08/03/19 08:00 Mechanical Ventilator 08/03/19 07:10 101 26 100 Mechanical Ventilator 30 98 26 30 08/03/19 07:00 102 23 113/66 (82) 100 08/03/19 06:09 98 26 08/03/19 06:00 99 20 111/68 (82) 100 08/03/19 05:00 99.4 102 23 118/72 (87) 100 08/03/19 04:00 99.8 106 23 109/72 (84) 100 08/03/19 04:00 Mechanical Ventilator 08/03/19 04:00 106 08/03/19 04:00 30 08/03/19 03:30 108 26 100 Mechanical Ventilator 30 109 26 30 08/03/19 03:00 111 28 137/86 (103) 100 08/03/19 02:30 113 20 137/87 (104) 100 08/03/19 02:00 112 28 121/85 (97) 100 08/03/19 01:00 119 26 124/85 (98) 100 08/03/19 00:00 99.7 121 33 124/85 (98) 100 08/03/19 00:00 Mechanical Ventilator 08/03/19 00:00 30 08/02/19 23:44 125 08/02/19 23:30 124 34 30 08/02/19 23:12 110 31 129/87 (101) 100 08/02/19 23:00 108 36 162/83 (109) 100 08/02/19 22:00 100.5 103 26 136/86 (103) 100 Intake and Output 08/02/19 08/03/19 19:00 07:00 Intake Total 840 ml 685 ml Output Total 100 ml 0 ml Balance 740 ml 685 ml Free Water 200 ml 100 ml IV Total 100 ml Tube Feeding 540 ml 540 ml Blood Product 45 ml Output Urine Total 0 ml 0 ml Stool Total 100 ml Laboratory Tests 08/03/19 04:30: White Blood Count 18.8H, Red Blood Count 3.25L, Hemoglobin 9.4L, Hematocrit 31.3L, Mean Corpuscular Volume 96, Mean Corpuscular Hemoglobin 29.0, Mean Corpuscular Hemoglobin Concent 30.1L, Red Cell Distribution Width 18.4H, Platelet Count 456H, Mean Platelet Volume 7.5, Neutrophils (%) (Auto) , Lymphocytes (%) (Auto) , Monocytes (%) (Auto) , Eosinophils (%) (Auto) , Basophils (%) (Auto) , Differential Total Cells Counted 100, Neutrophils % ( Manual) 83H, Lymphocytes % (Manual) 8L, Monocytes % (Manual) 4, Eosinophils % ( Manual) 5H, Basophils % (Manual) 0, Band Neutrophils 0, Platelet Estimate IncreasedH, Platelet Morphology Normal, Anisocytosis 1+, Sodium Level 142, Potassium Level 3.7, Chloride Level 102, Carbon Dioxide Level 28, Anion Gap 12, Blood Urea Nitrogen 63H, Creatinine 8.6H, Estimat Glomerular Filtration Rate 6.2 , Glucose Level 120H, Calcium Level 9.2, Phosphorus Level 2.0L, Magnesium Level 2.5H, Total Bilirubin 0.4, Aspartate Amino Transf (AST/SGOT) 21, Alanine Aminotransferase (ALT/SGPT) 11L, Alkaline Phosphatase 131H, C-Reactive Protein, Quantitative 1.8H, Pro-B-Type Natriuretic Peptide 58711D, Total Protein 8.3H, Albumin 2.8L, Globulin 5.5, Albumin/Globulin Ratio 0.5L Height (Feet): 6 Height (Inches): 1.00 Weight (Pounds): 162 Karishma Mulligan MD Aug 03, 2019 21:25
[2019-08-04] VITALS (24 sets, daily range): BP systolic 114–171; BP diastolic 62–93
[2019-08-04] MEDS: Albuterol 90mcg Inhaler 8gm INH SCH ×4 (03:51→15:00)
[2019-08-04 04:43] LABS: BASOPHILS % (AUTO) 0.7 % (0.0-2.0); EOSINOPHILS % (AUTO) 2.2 % (0.0-3.0); HEMATOCRIT 31.2 % (42.0-52.0); HEMOGLOBIN 9.3 G/DL (14.2-18.0); LYMPHOCYTES % (AUTO) 9.7 % (20.0-45.0); MEAN CORPUSCULAR VOLUME 97 FL (80-99); MONOCYTES % (AUTO) 4.6 % (1.0-10.0); NEUTROPHILS % (AUTO) 82.8 % (45.0-75.0); PLATELET COUNT 427 K/UL (150-450); RED BLOOD COUNT 3.22 M/UL (4.70-6.10); RED CELL DISTRIBUTION WIDTH 18.4 % (11.6-14.8); WHITE BLOOD COUNT 17.5 K/UL (4.8-10.8)
[2019-08-04 05:16] LABS: ALANINE AMINOTRANSFERASE 13 U/L (12-78); ALBUMIN 3.2 G/DL (3.4-5.0); ALBUMIN/GLOBULIN RATIO 0.6 (1.0-2.7); ALKALINE PHOSPHATASE 122 U/L (46-116); ANION GAP 15 mmol/L (5-15); ASPARTATE AMINO TRANSFERASE 20 U/L (15-37); BILIRUBIN,TOTAL 0.4 MG/DL (0.2-1.0); BLOOD UREA NITROGEN 84 mg/dL (7-18); CALCIUM 9.1 MG/DL (8.5-10.1); CARBON DIOXIDE 28 MMOL/L (21-32); CHLORIDE 101 MMOL/L (98-107); CREATININE 9.8 MG/DL (0.55-1.30); PHOSPHORUS 2.7 MG/DL (2.5-4.9); POTASSIUM 3.6 MMOL/L (3.5-5.1); SODIUM 144 MMOL/L (136-145)
[2019-08-04] MEDS: Midodrine 10mg tab NG SCH ×3 (05:32→21:04)
[2019-08-04] MEDS: Metoclopramide 10mg/2ml Inj IVP SCH ×3 (05:32→21:03)
[2019-08-04] MEDS: LORazepam Inj 2mg/ml 1ml IV PRN (05:32)
[2019-08-04] MEDS: NovoLOG Insulin Flexpen SUBQ SCH ×5 (05:33→23:41)
[2019-08-04] MEDS: Pantoprazole Inj IVP SCH (08:18)
[2019-08-04] MEDS: Enoxaparin 30mg Inj SUBQ SCH (08:19)
--- NOTE | 2019-08-04 09:14 | Pulmonolgy Critical Care Note ---
Critical Care - Asmt/Plan Assessment/Plan: Impression: COVID-19 virus infection Pneumonia Respiratory failure on ventilator, wean as tolerated once off pressors CKD - on HD Hypotension on pressors previously Cardiomegaly Leukocytosis Elevated AST COPD Chronic Kidney Disease - HD H/o Hypertension Worsening anemia sepsis Plan: trach care Antibiotics per ID HD per renal monitor vitals AC - weaning trials 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 Monitor lab data ICU care reviewed Hemodialysis per Renal medications/laboratory data/nursing notes/ICU care reviewed in detail note reviewed and edited care discussed with RN and RT ICU time spent >40 minutes Critical Care - Objective Last 24 Hour Vital Signs Date Time Temp Pulse Resp B/P (MAP) Pulse Ox O2 Delivery O2 Flow Rate FiO2 08/04/19 08:05 100 08/04/19 07:08 94 26 100 Mechanical Ventilator 30 92 26 30 30 08/04/19 07:00 90 10 171/87 (115) 100 08/04/19 06:06 88 26 08/04/19 06:00 99.5 89 26 138/70 (92) 100 08/04/19 05:30 92 26 126/69 (88) 100 08/04/19 05:00 95 20 123/76 (92) 100 08/04/19 04:00 30 08/04/19 04:00 Mechanical Ventilator 08/04/19 04:00 100.2 96 26 117/76 (90) 100 08/04/19 03:30 97 26 100 Mechanical Ventilator 30 99 27 30 08/04/19 03:26 103 08/04/19 03:00 104 26 139/73 (95) 100 08/04/19 02:00 108 22 143/88 (106) 100 08/04/19 01:00 103 22 134/84 (101) 100 08/04/19 00:00 100.4 100 26 121/81 (94) 100 08/04/19 00:00 30 08/04/19 00:00 Mechanical Ventilator 08/03/19 23:49 101 08/03/19 23:30 100 29 100 Mechanical Ventilator 30 102 28 30 08/03/19 23:00 101 28 123/74 (90) 100 08/03/19 22:30 100.6 102 26 123/78 (93) 100 08/03/19 22:00 99 26 124/70 (88) 100 08/03/19 21:13 101.2 08/03/19 21:00 111 26 102/70 (81) 100 08/03/19 20:00 30 08/03/19 20:00 Mechanical Ventilator 08/03/19 20:00 101.4 109 31 140/81 (100) 100 08/03/19 19:30 107 32 100 Mechanical Ventilator 30 108 30 30 08/03/19 19:24 107 08/03/19 19:00 107 23 131/80 (97) 100 08/03/19 18:04 110 36 138/79 (98) 100 08/03/19 17:00 108 29 134/79 (97) 100 08/03/19 16:00 99.9 111 19 134/77 (96) 100 08/03/19 16:00 Mechanical Ventilator 08/03/19 16:00 30 08/03/19 15:32 105 28 100 Mechanical Ventilator 30 107 28 30 08/03/19 15:30 107 08/03/19 15:00 107 29 131/83 (99) 100 08/03/19 14:00 107 23 130/80 (97) 100 08/03/19 13:00 99.5 113 26 119/72 (88) 100 08/03/19 12:00 117 08/03/19 12:00 Mechanical Ventilator 08/03/19 12:00 114 23 102/63 (76) 100 08/03/19 11:22 30 08/03/19 11:17 100 08/03/19 11:15 119 42 100 Mechanical Ventilator 30 119 38 30 08/03/19 11:00 122 41 132/80 (97) 100 08/03/19 10:00 118 18 129/76 (93) 100 08/03/19 09:55 30 08/03/19 09:25 108 24 30 30 Objective: WDWN NAD trach reduced breath sounds bilaterally without rhonchi or wheeze [id number] without MRG NABS nontender no HSM no CC mild edema reduced LOC Accucheck: 155 Critical Care - Subjective ROS Limited/Unobtainable: Yes Condition: critical EKG Rhythm: Sinus Rhythm FI02: 30 Vent Support Breath Rate: 26 Vent Support Mode: AC Vent Tidal Volume: 500 Sputum Amount: Small PEEP: 5.0 PIP: 38 Tube Feeding Amount: 45 I&O: Intake and Output 08/03/19 08/04/19 19:00 07:00 Intake Total 796 ml 745.0 ml Output Total 0 ml 400 ml Balance 796 ml 345.0 ml Free Water 90 ml IV Total 56 ml 55.0 ml Tube Feeding 540 ml 540 ml Other 200 ml 60 ml Output Urine Total 0 ml 0 ml Stool Total 0 ml 400 ml # Bowel Movements 1 ET-Tube: 7.5 ET Position: 24 Elliot Tineo MD Aug 04, 2019 09:14
--- NOTE | 2019-08-04 09:42 | Hematology/Onc Progress Note ---
Assessment/Plan Assessment/Plan Assessment and Recs: # Anemia of chronic disease, likely related ot underlying kidney disease has COIVD19++++++ --> hgb trend 9-->8-->7.3-->7.9-->6.8->9.5-->10->8.3-->7.7-->7.1-->8.9->8.8->7.7 -->8.1 ->7.9-->7.7 -->8.2-->8.1 -->7.9-->8.5 -->9->9.2-->9.5-->10.7 -->9.8--> 10.2-->11.8 -->11.9-->8.8 ->9.4->9-->8.3 -->8.5-->9.4->9.8-->9 --> transfuse as needed, hgb goal >7 --> no evidence of hemolysis --> peripheral smear has been reviewed --> epogen started 3 x a week ==>> transfuse 06/08, 06/15 # Leukocytosis likely related to suspected COVID-19 virus infection --> completed plaquenil --> trend smear as needed --> wbc trend: 4-->11-->14.5-->21-->26-->21->24--.28-->23-->19-->16.2-->21--> 11.2 -->12.5-->12.3-->12.4-->18.5-->18.5-->17->13-->18.2-->22.2-->25-->17.4-->17 -->14.2-->14-->16-->15.5-->9->17 --> pulm is aware --> on abx cefepime/vanc->zosyn/vanc-->dom/vanc-->dom-->levaquin/cefepime--> vanc --> pressors as needed --> 06/27 covid 19++ --> pressors as needed in icu # Thrombocytopenia/Lymphopenia --> likely related to covid19 --> plt 129k-->186k-->251-->285-->384 -->430-->539-->515-->447-->451-->404-->544 -->244 # Respiratory failure with covid19+ --> s/p vent/trach --> weaning # Possible Pneumonia --> abx completed --> 07/13 cxr: Improved right lung infiltrates. # Cardiomegaly # Transaminitis with Elevated AST # COPD # Chronic Kidney Disease --> per renal hd --> s/p right femoral cath 07/02 # Hypertension # peg # Dvt ppx lovenox Appreciate consultation and ernesto Rn Subjective Allergies: Coded Allergies: No Known Allergies (Unverified , 05/28/19) All Systems: reviewed and negative except above Subjective 06/01 nv, extremely agitated, not allowing labs draws, no night sweats, cbc ordered 06/02 confused, restraints, on abx and plaquenil, hgb 7.9, nrb 15 L 06/03 is with nonrebreather, but not compliant, remains confused 06/05 no bleeding, labs noted, no major bleeding, otherwise comfortable 06/06 labs reviewed, no bleeding, meds noted, no night sweats, on levo and nonrebreather 06/07 labs noted, no bleeding, meds reviewed, no bleeding, wbc higher 06/08 to get 2 units prbc, no night sweats, meds reviewed 06/09 is on cefepime and vanc, labs noted, ernesto Rn, no bleeding 06/10 no major changes, labs reviewed, wbc 28k, on abx, cefepime 06/12 remains in icu, labs noted, no night sweats or bleeding 06/13 sluggish pupils, remains agitated, per psych, no bleding, on vent, wbc sitll high 06/14 still confused, remains on vent, with ng, running nepro, on pressors 06/15 icu, febrile, non verbal, hgb 7.1, blood pending, completed plaq 06/16 remains in the icu, nonverbal, plan for hd tomorrow, ernesto rn 06/17 in icu, on pressor, nonverbal, on abx, no bleeding 06/19 no bleeding, nonverbal in icu, hgb is 7.7 06/20 on zosyn, tube feeds, vent, labs noted, in icu, nv 06/21 gettng hd as per renal, in icu, nv, no bleeding, tfs 06/22 icu, cxr with slight improvement, cooling blanket, weaning today 06/23 wewaning, in icu, on vent, abx, and pressors as needed, labs noted 06/24 failed weaning, off abx, completed plaquenil, hgb 8.1 06/26 icu, weaning for this am, afebrile, hgb 8 06/27 in icu, remains comotose, weaning started on peep, no night sweats 06/28 weaning today, off abx, restraints, no distress, h/h stable 06/29 covid 19+, failed weaning, no blood transfusion needed 06/30 icu, on vent, labs reviewed, no distress 07/01 in icu, may need trach, remains on hd per renal, labs noted 07/02 s/p right fem cath, failed wean, no new orders, h/h stable 07/03 is somewhat more responsive, on abx, no bleeding, weaning and HD today 07/04 hd as per renal, weaning off vent, no bleeding today 07/05 obtunded, no bleding overnight, with hd for tomorrow noted, vanc 07/08 no events, remains with trach/vent, ernesto Rn, no bleeding, cbc is noted 07/09 no overnight events, peg for friday pending consent 07/10 off pressors, vent, restraints, labs reviewed 07/11 no acute events is on pressors, intubated, agitated still 07/12 is resting comfortably, no bleeding, emds reviewed and noted 07/13 icu, no events, trach, cxr reviewed, 07/14 is onv ent, tachypneic and tachycardic, labs noted 07/15 remains confused, intubated, ernesto Rn, no bleeding 07/17 icu, cxr improving infiltrates, levo gtt, airborne/contact isolation 07/18 is on broad spectrum abx, is on levaquin and cefepime, wbc 16 agitated 07/19 icu, levo gtt, cxr unchanged, tachy, hd thursday 07/20 sedated, safety restraints, labs reviewed 07/21 hd was done yesterday, lower pressor requirements, wbc is worse, on abx 07/22 icu, meds and labs reviewed, vent, no distress 07/24 on vent, in icu, labs noted, remains agitated, and confused 07/25 remains obtunded, on vent, on pressor, hgb 9, wbc elev 07/26 icu, levo gtt, vent, iv abx, nonverbal 07/27 failed weaning, labs reviewed, repeat covid swab pending 07/28 labs are noted, no bleeding, on vent/trach gtube feeds dw rn 07/29 iuc, restraints, no new changes, vent 07/31 is asleep, comfortable, no events, labs reviewed, restraints+ 08/01 no events, agitated, no bleeding, meds noted, on gtube feeds 08/02 remains on vent, no bleeding, wbc higher 19, hgb 9, on abx 08/03 labs noted, on vent, no bleeding, wbc 17, hgb better Objective Objective Current Medications Medications (Trade) Dose Ordered Sig/Anthony Route PRN Reason Start Time Stop Time Status Last Admin Dose Admin Acetaminophen (Tylenol) 650 mg Q4H PRN NG For Pain 07/11/19 08:00 08/10/19 07:59 08/03/19 20:13 Albuterol Sulfate (Proventil MDI) 2 puff Q4HRT INH 06/06/19 23:00 08/30/19 18:59 08/04/19 08:02 Chlorhexidine Gluconate (Micehlle-Hex 2%) 1 applic DAILY@1999 TOPIC 06/07/19 20:00 09/05/19 19:59 08/03/19 20:13 Dextrose (Dextrose 50%) 25 ml Q30M PRN IV Hypoglycemia 06/20/19 19:30 09/18/19 19:29 Dextrose (Dextrose 50%) 50 ml Q30M PRN IV Hypoglycemia 06/20/19 19:30 09/18/19 19:29 Dopamine HCl/ Dextrose 250 ml @ 0 mls/hr Q24H PRN IV For hypotension 06/13/19 08:15 09/11/19 08:14 07/17/19 08:46 Enoxaparin Sodium (Lovenox) 30 mg DAILY SUBQ 06/07/19 09:00 08/27/19 08:59 08/04/19 08:19 Epoetin Aftab (Epoetin Aftab(ESRD on dialysis)) 10,000 unit SUBQ 06/07/19 21:00 08/31/19 20:59 08/02/19 20:18 Fentanyl Citrate 250 ml @ 0 mls/hr Q24H IV 07/19/19 14:06 10/17/19 14:05 07/28/19 21:16 Haloperidol Lactate 5 mg/ Dextrose 56 ml @ 224 mls/hr Q6H PRN IVPB Agitation 07/11/19 15:00 08/25/19 14:59 07/30/19 23:26 Hydralazine HCl (Apresoline) 10 mg Q4H PRN IV Blood pressure over 160 systol 06/07/19 10:15 09/05/19 10:14 Insulin Aspart (NovoLOG) EVERY 6 HOURS SUBQ 06/21/19 00:00 09/19/19 00:00 08/04/19 05:33 Lorazepam (Ativan 2mg/ml 1ml) 0.5 mg Q2H PRN IV For Anxiety 08/01/19 23:00 08/08/19 22:59 08/04/19 05:32 Metoclopramide HCl (Reglan) 5 mg Q8HR IVP 07/29/19 18:00 08/28/19 17:59 08/04/19 05:32 Midodrine (Pro-Amatine) 10 mg Q8HR NG 07/29/19 14:00 10/15/19 10:29 08/04/19 05:32 Norepinephrine Bitartrate 8 mg/ Sodium Chloride 250 ml @ 0 mls/hr Q24H IV 07/23/19 16:15 08/22/19 16:14 07/24/19 17:41 Pantoprazole (Protonix) 40 mg DAILY IVP 07/27/19 09:00 08/26/19 08:59 08/04/19 08:18 Piperacillin Sod/ Tazobactam Sod 3.375 gm/Sodium Chloride 110 ml @ 27.5 mls/hr Q12H IVPB 08/04/19 11:00 08/11/19 10:59 Vancomycin HCl (Vanco pharmacy to dose) 1 ea DAILY PRN MISC Per rx protocol 07/20/19 10:45 08/19/19 10:44 Last 24 Hour Vital Signs Date Time Temp Pulse Resp B/P (MAP) Pulse Ox O2 Delivery O2 Flow Rate FiO2 08/04/19 09:00 91 25 133/83 (100) 100 08/04/19 08:05 100 08/04/19 08:00 97.7 92 13 156/90 (112) 100 08/04/19 08:00 30 08/04/19 08:00 Mechanical Ventilator 08/04/19 07:08 94 26 100 Mechanical Ventilator 30 92 26 30 30 08/04/19 07:00 90 10 171/87 (115) 100 08/04/19 06:06 88 26 08/04/19 06:00 99.5 89 26 138/70 (92) 100 08/04/19 05:30 92 26 126/69 (88) 100 08/04/19 05:00 95 20 123/76 (92) 100 08/04/19 04:00 30 08/04/19 04:00 Mechanical Ventilator 08/04/19 04:00 100.2 96 26 117/76 (90) 100 08/04/19 03:30 97 26 100 Mechanical Ventilator 30 99 27 30 08/04/19 03:26 103 08/04/19 03:00 104 26 139/73 (95) 100 08/04/19 02:00 108 22 143/88 (106) 100 08/04/19 01:00 103 22 134/84 (101) 100 08/04/19 00:00 100.4 100 26 121/81 (94) 100 08/04/19 00:00 30 08/04/19 00:00 Mechanical Ventilator 08/03/19 23:49 101 08/03/19 23:30 100 29 100 Mechanical Ventilator 30 102 28 30 08/03/19 23:00 101 28 123/74 (90) 100 08/03/19 22:30 100.6 102 26 123/78 (93) 100 08/03/19 22:00 99 26 124/70 (88) 100 08/03/19 21:13 101.2 08/03/19 21:00 111 26 102/70 (81) 100 08/03/19 20:00 30 08/03/19 20:00 Mechanical Ventilator 08/03/19 20:00 101.4 109 31 140/81 (100) 100 08/03/19 19:30 107 32 100 Mechanical Ventilator 30 108 30 30 08/03/19 19:24 107 08/03/19 19:00 107 23 131/80 (97) 100 08/03/19 18:04 110 36 138/79 (98) 100 08/03/19 17:00 108 29 134/79 (97) 100 08/03/19 16:00 99.9 111 19 134/77 (96) 100 08/03/19 16:00 Mechanical Ventilator 08/03/19 16:00 30 08/03/19 15:32 105 28 100 Mechanical Ventilator 30 107 28 30 08/03/19 15:30 107 08/03/19 15:00 107 29 131/83 (99) 100 08/03/19 14:00 107 23 130/80 (97) 100 08/03/19 13:00 99.5 113 26 119/72 (88) 100 08/03/19 12:00 117 08/03/19 12:00 Mechanical Ventilator 08/03/19 12:00 114 23 102/63 (76) 100 08/03/19 11:22 30 08/03/19 11:17 100 08/03/19 11:15 119 42 100 Mechanical Ventilator 30 119 38 30 08/03/19 11:00 122 41 132/80 (97) 100 08/03/19 10:00 118 18 129/76 (93) 100 08/03/19 09:55 30 08/03/19 09:25 108 24 30 30 08/03/19 09:00 106 18 92/66 (75) 100 08/03/19 08:30 102 21 100/68 (79) 100 08/03/19 08:00 30 08/03/19 08:00 98.5 102 18 116/62 (80) 100 08/03/19 08:00 111 08/03/19 08:00 Mechanical Ventilator 08/03/19 07:10 101 26 100 Mechanical Ventilator 30 98 26 30 08/03/19 07:00 102 23 113/66 (82) 100 08/03/19 06:09 98 26 08/03/19 06:00 99 20 111/68 (82) 100 08/03/19 05:00 99.4 102 23 118/72 (87) 100 08/03/19 04:00 99.8 106 23 109/72 (84) 100 08/03/19 04:00 Mechanical Ventilator 08/03/19 04:00 106 08/03/19 04:00 30 08/03/19 03:30 108 26 100 Mechanical Ventilator 30 109 26 30 08/03/19 03:00 111 28 137/86 (103) 100 08/03/19 02:30 113 20 137/87 (104) 100 08/03/19 02:00 112 28 121/85 (97) 100 08/03/19 01:00 119 26 124/85 (98) 100 08/03/19 00:00 99.7 121 33 124/85 (98) 100 08/03/19 00:00 Mechanical Ventilator 08/03/19 00:00 30 08/02/19 23:44 125 08/02/19 23:30 124 34 30 08/02/19 23:12 110 31 129/87 (101) 100 08/02/19 23:00 108 36 162/83 (109) 100 08/02/19 22:00 100.5 103 26 136/86 (103) 100 08/02/19 21:00 108 26 128/87 (101) 100 08/02/19 20:30 106 15 127/75 (92) 100 08/02/19 20:00 30 08/02/19 20:00 Mechanical Ventilator 08/02/19 20:00 101.4 107 20 133/76 (95) 100 08/02/19 19:30 107 29 100 Mechanical Ventilator 30 110 28 30 08/02/19 19:27 106 08/02/19 19:00 108 6 123/81 (95) 100 08/02/19 18:00 104 14 130/75 (93) 100 08/02/19 17:00 99 26 118/73 (88) 100 08/02/19 16:00 30 08/02/19 16:00 Mechanical Ventilator 08/02/19 16:00 98.2 93 20 108/70 (83) 99 08/02/19 15:34 92 08/02/19 15:05 97 26 99 Mechanical Ventilator 30 97 26 30 08/02/19 15:04 95 26 110/72 (85) 100 08/02/19 14:00 99 26 107/63 (78) 100 08/02/19 13:00 105 26 105/61 (76) 100 08/02/19 12:00 100.9 103 20 100/64 (76) 100 08/02/19 12:00 30 08/02/19 12:00 Mechanical Ventilator 08/02/19 12:00 106 08/02/19 11:05 110 26 96 Mechanical Ventilator 30 110 26 30 08/02/19 11:00 111 20 100/67 (78) 100 08/02/19 10:00 111 26 124/78 (93) 99 Intake and Output 08/03/19 08/04/19 19:00 07:00 Intake Total 796 ml 745.0 ml Output Total 0 ml 400 ml Balance 796 ml 345.0 ml Free Water 90 ml IV Total 56 ml 55.0 ml Tube Feeding 540 ml 540 ml Other 200 ml 60 ml Output Urine Total 0 ml 0 ml Stool Total 0 ml 400 ml # Bowel Movements 1 Labs Test 08/02/19 05:25 08/03/19 04:30 08/04/19 04:00 White Blood Count 15.5 K/UL (4.8-10.8) 18.8 K/UL (4.8-10.8) 17.5 K/UL (4.8-10.8) Red Blood Count 3.40 M/UL (4.70-6.10) 3.25 M/UL (4.70-6.10) 3.22 M/UL (4.70-6.10) Hemoglobin 9.8 G/DL (14.2-18.0) 9.4 G/DL (14.2-18.0) 9.3 G/DL (14.2-18.0) Hematocrit 33.0 % (42.0-52.0) 31.3 % (42.0-52.0) 31.2 % (42.0-52.0) Mean Corpuscular Volume 97 FL (80-99) 96 FL (80-99) 97 FL (80-99) Mean Corpuscular Hemoglobin 28.7 PG (27.0-31.0) 29.0 PG (27.0-31.0) 28.8 PG (27.0-31.0) Mean Corpuscular Hemoglobin Concent 29.6 G/DL (32.0-36.0) 30.1 G/DL (32.0-36.0) 29.7 G/DL (32.0-36.0) Red Cell Distribution Width 18.3 % (11.6-14.8) 18.4 % (11.6-14.8) 18.4 % (11.6-14.8) Platelet Count 403 K/UL (150-450) 456 K/UL (150-450) 427 K/UL (150-450) Mean Platelet Volume 7.3 FL (6.5-10.1) 7.5 FL (6.5-10.1) 7.1 FL (6.5-10.1) Neutrophils (%) (Auto) 79.4 % (45.0-75.0) % (45.0-75.0) 82.8 % (45.0-75.0) Lymphocytes (%) (Auto) 12.6 % (20.0-45.0) % (20.0-45.0) 9.7 % (20.0-45.0) Monocytes (%) (Auto) 5.3 % (1.0-10.0) % (1.0-10.0) 4.6 % (1.0-10.0) Eosinophils (%) (Auto) 2.2 % (0.0-3.0) % (0.0-3.0) 2.2 % (0.0-3.0) Basophils (%) (Auto) 0.5 % (0.0-2.0) % (0.0-2.0) 0.7 % (0.0-2.0) Sodium Level 142 MMOL/L (136-145) 142 MMOL/L (136-145) 144 MMOL/L (136-145) Potassium Level 2.9 MMOL/L (3.5-5.1) 3.7 MMOL/L (3.5-5.1) 3.6 MMOL/L (3.5-5.1) Chloride Level 100 MMOL/L (98-107) 102 MMOL/L (98-107) 101 MMOL/L (98-107) Carbon Dioxide Level 28 MMOL/L (21-32) 28 MMOL/L (21-32) 28 MMOL/L (21-32) Anion Gap 14 mmol/L (5-15) 12 mmol/L (5-15) 15 mmol/L (5-15) Blood Urea Nitrogen 49 mg/dL (7-18) 63 mg/dL (7-18) 84 mg/dL (7-18) Creatinine 7.5 MG/DL (0.55-1.30) 8.6 MG/DL (0.55-1.30) 9.8 MG/DL (0.55-1.30) Estimat Glomerular Filtration Rate 7.3 mL/min (>60) 6.2 mL/min (>60) 5.4 mL/min (>60) Glucose Level 181 MG/DL (74-106) 120 MG/DL (74-106) 169 MG/DL (74-106) Calcium Level 9.2 MG/DL (8.5-10.1) 9.2 MG/DL (8.5-10.1) 9.1 MG/DL (8.5-10.1) Phosphorus Level 3.7 MG/DL (2.5-4.9) 2.0 MG/DL (2.5-4.9) 2.7 MG/DL (2.5-4.9) Magnesium Level 2.5 MG/DL (1.8-2.4) 2.5 MG/DL (1.8-2.4) 2.6 MG/DL (1.8-2.4) Total Bilirubin 0.3 MG/DL (0.2-1.0) 0.4 MG/DL (0.2-1.0) 0.4 MG/DL (0.2-1.0) Aspartate Amino Transf (AST/SGOT) 21 U/L (15-37) 21 U/L (15-37) 20 U/L (15-37) Alanine Aminotransferase (ALT/SGPT) 13 U/L (12-78) 11 U/L (12-78) 13 U/L (12-78) Alkaline Phosphatase 123 U/L (46-116) 131 U/L (46-116) 122 U/L (46-116) C-Reactive Protein, Quantitative 1.8 mg/dL (0.00-0.90) 1.8 mg/dL (0.00-0.90) 1.9 mg/dL (0.00-0.90) Pro-B-Type Natriuretic Peptide 88318 pg/mL (0-125) 18951 pg/mL (0-125) Total Protein 8.7 G/DL (6.4-8.2) 8.3 G/DL (6.4-8.2) 8.4 G/DL (6.4-8.2) Albumin 2.9 G/DL (3.4-5.0) 2.8 G/DL (3.4-5.0) 3.2 G/DL (3.4-5.0) Globulin 5.8 g/dL 5.5 g/dL 5.2 g/dL Albumin/Globulin Ratio 0.5 (1.0-2.7) 0.5 (1.0-2.7) 0.6 (1.0-2.7) Differential Total Cells Counted 100 Neutrophils % (Manual) 83 % (45-75) Lymphocytes % (Manual) 8 % (20-45) Monocytes % (Manual) 4 % (1-10) Eosinophils % (Manual) 5 % (0-3) Basophils % (Manual) 0 % (0-2) Band Neutrophils 0 % (0-8) Platelet Estimate Increased Platelet Morphology Normal Anisocytosis 1+ Height (Feet): 6 Height (Inches): 1.00 Weight (Pounds): 160 Objective General: nv, confused, sedated Heent: bilateral eye normal inspection, bilateral eye PERRL ++Ng Respiratory: normal breath sounds, no respiratory distress, intubated/vent +++ trach+++ Cardiovascular: regular rate, rhythm, no edema Gastrointestinal: normal inspection, soft, non-distended, peg+ Rectal: deferred Musculoskeletal: normal range of motion, non-tender, R fem cath++ Neurologic: alert, motor strength/tone normal, sensory intact, responsive, speech normal Skin: Decubitus/Ulcer - See RN skin exam. : jamaal+ Greg Cabral MD Aug 04, 2019 09:42
[2019-08-04] MEDS ORDERED: Zosyn 3.375gm in NS 110ml IVPB SCH (11:00)
--- NOTE | 2019-08-04 11:21 | General Progress Note ---
Assessment/Plan Status: progressing, unchanged, deteriorating Assessment/Plan: 1. Diabetes. 2. Hypertension. 3. Coronary artery disease. 4. COPD. 5. Psychiatric disorder with schizophrenia. 6. History of hepatitis C. 7. HLP. 8. Chronic kidney disease, now with acute renal failure. 9. Anemia. 10. Hypothyroidism. 11. Spinal stenosis. 12. Constipation. 13. GERD. 14. COVID positive HD per nephrology fu labs icu care s/p PEG GTF monitor for residuals Subjective ROS Limited/Unobtainable: No Allergies: Coded Allergies: No Known Allergies (Unverified , 05/28/19) Objective Last 24 Hour Vital Signs Date Time Temp Pulse Resp B/P (MAP) Pulse Ox O2 Delivery O2 Flow Rate FiO2 08/04/19 10:00 96 16 130/93 (105) 100 08/04/19 09:00 91 25 133/83 (100) 100 08/04/19 08:05 100 08/04/19 08:00 97.7 92 13 156/90 (112) 100 08/04/19 08:00 30 08/04/19 08:00 Mechanical Ventilator 08/04/19 07:08 94 26 100 Mechanical Ventilator 30 92 26 30 30 08/04/19 07:00 90 10 171/87 (115) 100 08/04/19 06:06 88 26 08/04/19 06:00 99.5 89 26 138/70 (92) 100 08/04/19 05:30 92 26 126/69 (88) 100 08/04/19 05:00 95 20 123/76 (92) 100 08/04/19 04:00 30 08/04/19 04:00 Mechanical Ventilator 08/04/19 04:00 100.2 96 26 117/76 (90) 100 08/04/19 03:30 97 26 100 Mechanical Ventilator 30 99 27 30 08/04/19 03:26 103 08/04/19 03:00 104 26 139/73 (95) 100 08/04/19 02:00 108 22 143/88 (106) 100 08/04/19 01:00 103 22 134/84 (101) 100 08/04/19 00:00 100.4 100 26 121/81 (94) 100 08/04/19 00:00 30 08/04/19 00:00 Mechanical Ventilator 08/03/19 23:49 101 08/03/19 23:30 100 29 100 Mechanical Ventilator 30 102 28 30 08/03/19 23:00 101 28 123/74 (90) 100 08/03/19 22:30 100.6 102 26 123/78 (93) 100 08/03/19 22:00 99 26 124/70 (88) 100 08/03/19 21:13 101.2 08/03/19 21:00 111 26 102/70 (81) 100 08/03/19 20:00 30 08/03/19 20:00 Mechanical Ventilator 08/03/19 20:00 101.4 109 31 140/81 (100) 100 08/03/19 19:30 107 32 100 Mechanical Ventilator 30 108 30 30 08/03/19 19:24 107 08/03/19 19:00 107 23 131/80 (97) 100 08/03/19 18:04 110 36 138/79 (98) 100 08/03/19 17:00 108 29 134/79 (97) 100 08/03/19 16:00 99.9 111 19 134/77 (96) 100 08/03/19 16:00 Mechanical Ventilator 08/03/19 16:00 30 08/03/19 15:32 105 28 100 Mechanical Ventilator 30 107 28 30 08/03/19 15:30 107 08/03/19 15:00 107 29 131/83 (99) 100 08/03/19 14:00 107 23 130/80 (97) 100 08/03/19 13:00 99.5 113 26 119/72 (88) 100 08/03/19 12:00 117 08/03/19 12:00 Mechanical Ventilator 08/03/19 12:00 114 23 102/63 (76) 100 08/03/19 11:22 30 Intake and Output 08/03/19 08/04/19 19:00 07:00 Intake Total 796 ml 745.0 ml Output Total 0 ml 400 ml Balance 796 ml 345.0 ml Free Water 90 ml IV Total 56 ml 55.0 ml Tube Feeding 540 ml 540 ml Other 200 ml 60 ml Output Urine Total 0 ml 0 ml Stool Total 0 ml 400 ml # Bowel Movements 1 Laboratory Tests 08/04/19 04:00: White Blood Count 17.5H, Red Blood Count 3.22L, Hemoglobin 9.3L, Hematocrit 31.2L, Mean Corpuscular Volume 97, Mean Corpuscular Hemoglobin 28.8, Mean Corpuscular Hemoglobin Concent 29.7L, Red Cell Distribution Width 18.4H, Platelet Count 427, Mean Platelet Volume 7.1, Neutrophils (%) (Auto) 82.8H, Lymphocytes (%) (Auto) 9.7L, Monocytes (%) (Auto) 4.6, Eosinophils (%) (Auto) 2.2, Basophils (%) (Auto) 0.7, Sodium Level 144, Potassium Level 3.6, Chloride Level 101, Carbon Dioxide Level 28, Anion Gap 15, Blood Urea Nitrogen 84H, Creatinine 9.8H, Estimat Glomerular Filtration Rate 5.4, Glucose Level 169H, Calcium Level 9.1, Phosphorus Level 2.7, Magnesium Level 2.6H, Total Bilirubin 0.4, Aspartate Amino Transf (AST/SGOT) 20, Alanine Aminotransferase (ALT/SGPT) 13, Alkaline Phosphatase 122H, C-Reactive Protein, Quantitative 1.9H, Total Protein 8.4H, Albumin 3.2L, Globulin 5.2, Albumin/Globulin Ratio 0.6L Height (Feet): 6 Height (Inches): 1.00 Weight (Pounds): 160 General Appearance: no apparent distress EENT: normal ENT inspection Neck: supple Cardiovascular: tachycardia Respiratory/Chest: decreased breath sounds Abdomen: hypoactive bowel sounds Extremities: non-tender Marito Ramires MD Aug 04, 2019 11:21
--- NOTE | 2019-08-04 12:14 | Nephrology Progress Note ---
Assessment/Plan Problem List: (1) CASSANDRA (acute kidney injury) (2) Anemia in chronic kidney disease (CKD) (3) HTN (hypertension) (4) COVID-19 Assessment Acute renal failure most likely superimposed on chronic kidney disease Suspected COVID-19 virus infection Possible Pneumonia, lymphopenia, elevated AST Cardiomegaly, possible CHF COPD Hypertension Anemia, most likely related to chronic kidney disease Plan August 03: Lab reviewed. Due for dialysis today. White blood cell 17,500. August 02: Lab reviewed. Low phosphorus replaced. Hemodialysis ordered for tomorrow. White blood cells over 18,000. August 01: Labs reviewed. Potassium replacement ordered. Remains full code on ventilator via trach. Continue per consultants. July 31: Dialyzed yesterday. No can panel today. Remains full code. Remains on ventilator. Being fed through PEG. Continue per consultants. July 30: Patient due for dialysis today. Labs are reviewed. Remains full code. Status post trach to ventilator. Status post PEG. July 29: Patient dialyzed yesterday. Due for dialysis tomorrow. Remains in ICU. Full code. Status post trach tube to ventilator. Status post PEG. July 28: Due for dialysis today. Labs reviewed. Full code. Patient trached and vented. July 27: Last COVID test negative. COVID test will be repeated tomorrow. Will order dialysis tomorrow. Remains full code. Medication list and labs reviewed. July 26: No labs done today. Dialysis done yesterday. Will check lab tomorrow. Dialysis as needed. July 25: Lab reviewed. Dialysis today. Discussed with RN. July 24: Lab reviewed. Do dialysis tomorrow. Discussed with RN. July 23: Lab reviewed. Dialyzed yesterday. Discussed with RN. Remains full code. Next dialysis July 25. Will check labs tomorrow. July 22: Labs reviewed. Due for dialysis today. Discussed with RN. Watch borderline low blood pressure. Discussed with dialysis nurse. July 21: Today's lab reviewed. Will arrange for dialysis tomorrow. Discussed with RN. Aim to keep the blood pressure above 100 systolic. Continue per consultants. July 20: Patient was dialyzed yesterday. Could not ultrafiltrate much due to low blood pressure. Discussed with SHANIQUE Dick today. No labs drawn today. Continue per consultants. July 19: Due for dialysis today. Discussed with SHANIQUE Dick. Continue per consultants. July 18: Dialyzed July 16. Will order dialysis tomorrow July 19. Continues to be on ventilator through trach. No labs done today. Continue per consultants. July 17: Dialyzed yesterday. Stable from renal standpoint of view. Remains full code. Status post trach on vent. Status post PEG. Continue per consultants. July 16: Dialysis today. Will resume Midodrin to prevent hypotension. Patient remains full code. July 15: Dialyzed yesterday, due for dialysis tomorrow. Labs and medication list reviewed. Continue per consultants. Patient remains full code. COVID-19 detected again. July 14: Patient currently on dialysis. This is continuation of dialysis from yesterday as yesterday's dialysis was cut short due to catheter malfunction. Labs and medication reviewed. Continue per consultants. July 13: Patient currently on hemodialysis. The dialysis catheter which is a intrajugular Kamlesh has poor flow. Will try TPA. Continue per consultants. July 12: Due for PEG today. Due for dialysis tomorrow. Continue per consultants. Discussed with RN. July 11: Plan for dialysis today. Discussed with RN. Data reviewed. July 10: Plan for dialysis tomorrow July 11. Waiting for consent to proceed with PEG. Continue per consultants. Medication reviewed. Labs reviewed. Discussed with RN. July 09: Dialyzed yesterday. Labs reviewed. Medication reviewed. Next hemodialysis July 11. July 08: Patient has tracheostomy now. Connected to ventilator. Due for dialysis today. Continue per consultants. Discussed with SHANIQUE Romero. July 07: Patient is due for tracheostomy today. Patient was last dialyzed July 05. Will order dialysis for tomorrow. July 06: Patient is intubated on ventilator however the plan is to extubate today. Patient was dialysis yesterday July 05. The dialysis time was cut short due to patient's respiratory distress. Only 1 L was removed during dialysis yesterday. Today's lab reviewed. Continue per consultants. Will arrange for dialysis as needed. July 05: Patient due for dialysis today. Remains intubated. Will schedule permacath placement in a.m. blood cultures on July 04 are negative. July 04: Patient was dialyzed yesterday. Due for dialysis tomorrow. Continues to be intubated. After tomorrow's dialysis will order a permacath. May 24: Dialysis is about to be started now Continues to be intubated Will plan to remove the femoral dialysis catheter and exchanged for a new temporary catheter per ID recommendation We will check surveillance blood culture tomorrow July 02: Patient was dialyzed yesterday and due for dialysis tomorrow Stable from renal standpoint W on dialysis Continue per consultants, weaning....... etc. July 01: Dialysis today Other status unchanged June 30: Due for dialysis tomorrow Remains intubated on ventilator Labs and medication reviewed Discussed with RN Stable from renal standpoint of view June 29: Dialyzed yesterday Due for dialysis tomorrow Stable from renal standpoint to view Keeps failing weaning process June 28: Patient due for dialysis today Stable from renal standpoint to view Continue per consultants June 27: Labs reviewed Due due for dialysis June 28 Discussed with SHANIQUE Silverman per consultants Remains intubated on ventilator June 26 Labs reviewed Dialyzed yesterday Started on weaning today Continue to monitor renal parameters June 25: On dialysis now Potassium supplement implemented Continue per consultants Next dialysis June 27June 15: Status unchanged Dialyzed yesterday will dialyze again tomorrow Potassium supplements given Discussed with RN June 14: Due dialysis today Status: Remains intubated on ventilator June 22: Status unchanged Dialyzed yesterday and duefordialysistomorrow Serum sodium stable today June 21 Remains intubated on ventilator Due dialysis today Emphasized high sodium bath for dialysis June 20: Remains intubated on ventilator Dialyzed June 19 next dialysis June 21 Serum sodium 128, will give 250 cc 3% saline Remains full code Discussed with RN Iron panel ordered June 19: Discussed with RN. Patient due for dialysis today. Continue pulmonary support. Remains full code. June 18: Patient dialyzed yesterday June 17 Serum sodium improved but still low Arrange for dialysis tomorrow June 19 Continue per consultants June 17: Due for dialysis today Today's lab reviewed, low serum sodium noted, Emphasized on high sodium bath to dialysis nurse Discussed with SHANIQUE Yuen June 16: Dialyzed yesterday Remains intubated Labs reviewed, serum sodium 131 Plan to dialyze tomorrow June 17 with high sodium bath Discussed with SHANIQUE Yuen June 15: Due for dialysis today Labs reviewed Discussed with RN Transfuse 1 unit of packed RBCs today for low hemoglobin of 7.1 June 5: Blood pressure well maintained Receive dialysis June 13 next hemodialysis June 15June 4: Discussed with RN in ICU Patient did not receive proper dialysis yesterday due to dialysis catheter malfunction Catheter to be adjusted today and dialyzed to be resumed today Continue per consultants Positive for COVID June 11: Patient now intubated on mechanical ventilation Discussed with SHANIQUE Yuen, today June 12 Patient received dialysis yesterday June 10 next hemodialysis June 12 Blood pressure better maintained Today's labs reviewed Continue per consultants Previously patient received dialysis last evening June 05, next dialysis June 07 which was incomplete due to patient's hypotension Will start on midodrine for blood pressure support. Meanwhile continue other pressors as needed Previously Patient is doing poorly, septic, white blood cells are rising, Hypotension somewhat improved We will keep n.p.o. , NG tube for medications, and change medication to IV as needed Patient remains full code Monitor vancomycin level Previously: Patient pulled out his femoral catheter yesterday June 03 which was reinserted by Dr. Mast Patient scheduled for dialysis again June 04, which again was not done due to dialysis nurse citing catheter malfunction Meanwhile continue management per ID, pulmonary , and psych. Meanwhile white blood cell count is rising. Patient blood pressure borderline low. Will check ABG Previously May 31 : I believe patient need dialysis treatment He however needs to competency assessment if can make decisions or not I will communicate with Dr. Mulligan Previously: Per pulmonary and ID advice Adjust blood pressure medication Renal diet Anemia work-up 2D echocardiogram refused Kidney ultrasound refused Jules catheter Urine studies Per orders Subjective ROS Limited/Unobtainable: Yes Objective Objective Last 24 Hour Vital Signs Date Time Temp Pulse Resp B/P (MAP) Pulse Ox O2 Delivery O2 Flow Rate FiO2 08/04/19 12:00 30 08/04/19 12:00 Mechanical Ventilator 08/04/19 10:00 96 16 130/93 (105) 100 08/04/19 09:00 91 25 133/83 (100) 100 08/04/19 08:05 100 08/04/19 08:00 97.7 92 13 156/90 (112) 100 08/04/19 08:00 30 08/04/19 08:00 Mechanical Ventilator 08/04/19 07:08 94 26 100 Mechanical Ventilator 30 92 26 30 30 08/04/19 07:00 90 10 171/87 (115) 100 08/04/19 06:06 88 26 08/04/19 06:00 99.5 89 26 138/70 (92) 100 08/04/19 05:30 92 26 126/69 (88) 100 08/04/19 05:00 95 20 123/76 (92) 100 08/04/19 04:00 30 08/04/19 04:00 Mechanical Ventilator 08/04/19 04:00 100.2 96 26 117/76 (90) 100 08/04/19 03:30 97 26 100 Mechanical Ventilator 30 99 27 30 08/04/19 03:26 103 08/04/19 03:00 104 26 139/73 (95) 100 08/04/19 02:00 108 22 143/88 (106) 100 08/04/19 01:00 103 22 134/84 (101) 100 08/04/19 00:00 100.4 100 26 121/81 (94) 100 08/04/19 00:00 30 08/04/19 00:00 Mechanical Ventilator 08/03/19 23:49 101 08/03/19 23:30 100 29 100 Mechanical Ventilator 30 102 28 30 08/03/19 23:00 101 28 123/74 (90) 100 08/03/19 22:30 100.6 102 26 123/78 (93) 100 08/03/19 22:00 99 26 124/70 (88) 100 08/03/19 21:13 101.2 08/03/19 21:00 111 26 102/70 (81) 100 08/03/19 20:00 30 08/03/19 20:00 Mechanical Ventilator 08/03/19 20:00 101.4 109 31 140/81 (100) 100 08/03/19 19:30 107 32 100 Mechanical Ventilator 30 108 30 30 08/03/19 19:24 107 08/03/19 19:00 107 23 131/80 (97) 100 08/03/19 18:04 110 36 138/79 (98) 100 08/03/19 17:00 108 29 134/79 (97) 100 08/03/19 16:00 99.9 111 19 134/77 (96) 100 08/03/19 16:00 Mechanical Ventilator 08/03/19 16:00 30 08/03/19 15:32 105 28 100 Mechanical Ventilator 30 107 28 30 08/03/19 15:30 107 08/03/19 15:00 107 29 131/83 (99) 100 08/03/19 14:00 107 23 130/80 (97) 100 08/03/19 13:00 99.5 113 26 119/72 (88) 100 Intake and Output 08/03/19 08/04/19 19:00 07:00 Intake Total 796 ml 745.0 ml Output Total 0 ml 400 ml Balance 796 ml 345.0 ml Free Water 90 ml IV Total 56 ml 55.0 ml Tube Feeding 540 ml 540 ml Other 200 ml 60 ml Output Urine Total 0 ml 0 ml Stool Total 0 ml 400 ml # Bowel Movements 1 Laboratory Tests 08/04/19 04:00: White Blood Count 17.5H, Red Blood Count 3.22L, Hemoglobin 9.3L, Hematocrit 31.2L, Mean Corpuscular Volume 97, Mean Corpuscular Hemoglobin 28.8, Mean Corpuscular Hemoglobin Concent 29.7L, Red Cell Distribution Width 18.4H, Platelet Count 427, Mean Platelet Volume 7.1, Neutrophils (%) (Auto) 82.8H, Lymphocytes (%) (Auto) 9.7L, Monocytes (%) (Auto) 4.6, Eosinophils (%) (Auto) 2.2, Basophils (%) (Auto) 0.7, Sodium Level 144, Potassium Level 3.6, Chloride Level 101, Carbon Dioxide Level 28, Anion Gap 15, Blood Urea Nitrogen 84H, Creatinine 9.8H, Estimat Glomerular Filtration Rate 5.4, Glucose Level 169H, Calcium Level 9.1, Phosphorus Level 2.7, Magnesium Level 2.6H, Total Bilirubin 0.4, Aspartate Amino Transf (AST/SGOT) 20, Alanine Aminotransferase (ALT/SGPT) 13, Alkaline Phosphatase 122H, C-Reactive Protein, Quantitative 1.9H, Total Protein 8.4H, Albumin 3.2L, Globulin 5.2, Albumin/Globulin Ratio 0.6L Height (Feet): 6 Height (Inches): 1.00 Weight (Pounds): 160 General Appearance: no apparent distress EENT: other - Trach and vent Cardiovascular: bradycardia Respiratory/Chest: decreased breath sounds Abdomen: distended, other - PEG in place Objective No change Mic Cole MD Aug 04, 2019 12:14
--- NOTE | 2019-08-04 12:28 | Cardiac Electrophysiology PN ---
Assessment/Plan Assessment/Plan 1. NSTEMI type 2. Low level and flat due to renal failure. On Aspirin. EF 60%. 2. S/P Septic shock. On Midodrine 10 tid and Abx 3. ESRD, on HD per Dr. Cole. S/P PermCath placement by IR 4. Resp failure due to COVID-19 positive pneumonia. On the Vent with 30% Fio2. S/P Tracheostomy 07/08/19. Now on pressure support 5. Dysphagia, S/P PEG 07/13/19 6. COPD. 7. Anemia. 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 Off pressors. Covid positive x 9. Tenth Covid was negative but the 11th one positive again S/P PermCath placement by IR. HD pending today Objective Last 24 Hour Vital Signs Date Time Temp Pulse Resp B/P (MAP) Pulse Ox O2 Delivery O2 Flow Rate FiO2 08/04/19 12:00 30 08/04/19 12:00 Mechanical Ventilator 08/04/19 11:14 99 26 100 Mechanical Ventilator 30 98 26 30 08/04/19 10:00 96 16 130/93 (105) 100 08/04/19 09:00 91 25 133/83 (100) 100 08/04/19 08:05 100 08/04/19 08:00 97.7 92 13 156/90 (112) 100 08/04/19 08:00 30 08/04/19 08:00 Mechanical Ventilator 08/04/19 07:08 94 26 100 Mechanical Ventilator 30 92 26 30 30 08/04/19 07:00 90 10 171/87 (115) 100 08/04/19 06:06 88 26 08/04/19 06:00 99.5 89 26 138/70 (92) 100 08/04/19 05:30 92 26 126/69 (88) 100 08/04/19 05:00 95 20 123/76 (92) 100 08/04/19 04:00 30 08/04/19 04:00 Mechanical Ventilator 08/04/19 04:00 100.2 96 26 117/76 (90) 100 08/04/19 03:30 97 26 100 Mechanical Ventilator 30 99 27 30 08/04/19 03:26 103 08/04/19 03:00 104 26 139/73 (95) 100 08/04/19 02:00 108 22 143/88 (106) 100 08/04/19 01:00 103 22 134/84 (101) 100 08/04/19 00:00 100.4 100 26 121/81 (94) 100 08/04/19 00:00 30 08/04/19 00:00 Mechanical Ventilator 08/03/19 23:49 101 08/03/19 23:30 100 29 100 Mechanical Ventilator 30 102 28 30 08/03/19 23:00 101 28 123/74 (90) 100 08/03/19 22:30 100.6 102 26 123/78 (93) 100 08/03/19 22:00 99 26 124/70 (88) 100 08/03/19 21:13 101.2 08/03/19 21:00 111 26 102/70 (81) 100 08/03/19 20:00 30 08/03/19 20:00 Mechanical Ventilator 08/03/19 20:00 101.4 109 31 140/81 (100) 100 08/03/19 19:30 107 32 100 Mechanical Ventilator 30 108 30 30 08/03/19 19:24 107 08/03/19 19:00 107 23 131/80 (97) 100 08/03/19 18:04 110 36 138/79 (98) 100 08/03/19 17:00 108 29 134/79 (97) 100 08/03/19 16:00 99.9 111 19 134/77 (96) 100 08/03/19 16:00 Mechanical Ventilator 08/03/19 16:00 30 08/03/19 15:32 105 28 100 Mechanical Ventilator 30 107 28 30 08/03/19 15:30 107 08/03/19 15:00 107 29 131/83 (99) 100 08/03/19 14:00 107 23 130/80 (97) 100 08/03/19 13:00 99.5 113 26 119/72 (88) 100 Intake and Output 08/03/19 08/04/19 19:00 07:00 Intake Total 796 ml 745.0 ml Output Total 0 ml 400 ml Balance 796 ml 345.0 ml Free Water 90 ml IV Total 56 ml 55.0 ml Tube Feeding 540 ml 540 ml Other 200 ml 60 ml Output Urine Total 0 ml 0 ml Stool Total 0 ml 400 ml # Bowel Movements 1 Laboratory Tests Test 08/04/19 04:00 White Blood Count 17.5 K/UL (4.8-10.8) H Red Blood Count 3.22 M/UL (4.70-6.10) L Hemoglobin 9.3 G/DL (14.2-18.0) L Hematocrit 31.2 % (42.0-52.0) L Mean Corpuscular Volume 97 FL (80-99) Mean Corpuscular Hemoglobin 28.8 PG (27.0-31.0) Mean Corpuscular Hemoglobin Concent 29.7 G/DL (32.0-36.0) L Red Cell Distribution Width 18.4 % (11.6-14.8) H Platelet Count 427 K/UL (150-450) Mean Platelet Volume 7.1 FL (6.5-10.1) Neutrophils (%) (Auto) 82.8 % (45.0-75.0) H Lymphocytes (%) (Auto) 9.7 % (20.0-45.0) L Monocytes (%) (Auto) 4.6 % (1.0-10.0) Eosinophils (%) (Auto) 2.2 % (0.0-3.0) Basophils (%) (Auto) 0.7 % (0.0-2.0) Sodium Level 144 MMOL/L (136-145) Potassium Level 3.6 MMOL/L (3.5-5.1) Chloride Level 101 MMOL/L (98-107) Carbon Dioxide Level 28 MMOL/L (21-32) Anion Gap 15 mmol/L (5-15) Blood Urea Nitrogen 84 mg/dL (7-18) H Creatinine 9.8 MG/DL (0.55-1.30) H Estimat Glomerular Filtration Rate 5.4 mL/min (>60) Glucose Level 169 MG/DL (74-106) H Calcium Level 9.1 MG/DL (8.5-10.1) Phosphorus Level 2.7 MG/DL (2.5-4.9) Magnesium Level 2.6 MG/DL (1.8-2.4) H Total Bilirubin 0.4 MG/DL (0.2-1.0) Aspartate Amino Transf (AST/SGOT) 20 U/L (15-37) Alanine Aminotransferase (ALT/SGPT) 13 U/L (12-78) Alkaline Phosphatase 122 U/L (46-116) H C-Reactive Protein, Quantitative 1.9 mg/dL (0.00-0.90) H Total Protein 8.4 G/DL (6.4-8.2) H Albumin 3.2 G/DL (3.4-5.0) L Globulin 5.2 g/dL Albumin/Globulin Ratio 0.6 (1.0-2.7) L Objective HEAD AND NECK: No JVD. Tracheostomy in place. Left IJ HD catheter now in place Right IJ PermCath in place LUNGS: Decreased breath sounds. CARDIOVASCULAR: Regular S1 and S2. Tachycardic. ABDOMEN: Soft. PEG in place EXTREMITIES: No pitting edema. Gio Baker MD Aug 04, 2019 12:28
[2019-08-04] MEDS: fentaNYL 2500mcg/NS 250ml 250 ML IV SCH (14:06)
--- NOTE | 2019-08-04 14:07 | Infectious Diseases Prog Note ---
Assessment/Plan Assessment/Plan IMPRESSION: 1. COVID19 pneumonia Positive: 05/27, 05/31 , 06/05, 06/09 ,06/17, 06/19, 06/23, 06/27, 07/03, 07/15, 07/29 Negative: 07/26 2. MRSA carrier. 3. Chronic kidney disease , end-stage renal disease. 4. COPD. 5. Hypertension. 6. Anemia. 7. Hypothyroidism. 8. Hyperlipidemia. 9. Major depression. 10. Leukocytosis 11. Hypotension 12. Hepatitis C 13. Hyperuricemia 14. Diarrhea 15. septic shock 16. Leukocytosis worsening 17. Pneumonia with Staph aureus ( MRSA) 18. Bacteremia with Staph coagulase negative RECOMMENDATIONS: Continue IV Vancomycin & Zosyn Blood culture & sputum culture Improving CXR Case was D/W RN Subjective ROS Limited/Unobtainable: Yes Constitutional: Reports: fever, other - Et=907.4 Cardiovascular: Reports: other - on bedside HD Allergies: Coded Allergies: No Known Allergies (Unverified , 05/28/19) Objective Vital Signs Last 24 Hour Vital Signs Date Time Temp Pulse Resp B/P (MAP) Pulse Ox O2 Delivery O2 Flow Rate FiO2 08/04/19 12:00 30 08/04/19 12:00 Mechanical Ventilator 08/04/19 11:14 99 26 100 Mechanical Ventilator 30 98 26 30 08/04/19 10:00 96 16 130/93 (105) 100 08/04/19 09:00 91 25 133/83 (100) 100 08/04/19 08:05 100 08/04/19 08:00 97.7 92 13 156/90 (112) 100 08/04/19 08:00 30 08/04/19 08:00 Mechanical Ventilator 08/04/19 07:08 94 26 100 Mechanical Ventilator 30 92 26 30 30 08/04/19 07:00 90 10 171/87 (115) 100 08/04/19 06:06 88 26 08/04/19 06:00 99.5 89 26 138/70 (92) 100 08/04/19 05:30 92 26 126/69 (88) 100 08/04/19 05:00 95 20 123/76 (92) 100 08/04/19 04:00 30 08/04/19 04:00 Mechanical Ventilator 08/04/19 04:00 100.2 96 26 117/76 (90) 100 08/04/19 03:30 97 26 100 Mechanical Ventilator 30 99 27 30 08/04/19 03:26 103 08/04/19 03:00 104 26 139/73 (95) 100 08/04/19 02:00 108 22 143/88 (106) 100 08/04/19 01:00 103 22 134/84 (101) 100 08/04/19 00:00 100.4 100 26 121/81 (94) 100 08/04/19 00:00 30 08/04/19 00:00 Mechanical Ventilator 08/03/19 23:49 101 08/03/19 23:30 100 29 100 Mechanical Ventilator 30 102 28 30 08/03/19 23:00 101 28 123/74 (90) 100 08/03/19 22:30 100.6 102 26 123/78 (93) 100 08/03/19 22:00 99 26 124/70 (88) 100 08/03/19 21:13 101.2 08/03/19 21:00 111 26 102/70 (81) 100 08/03/19 20:00 30 08/03/19 20:00 Mechanical Ventilator 08/03/19 20:00 101.4 109 31 140/81 (100) 100 08/03/19 19:30 107 32 100 Mechanical Ventilator 30 108 30 30 08/03/19 19:24 107 08/03/19 19:00 107 23 131/80 (97) 100 08/03/19 18:04 110 36 138/79 (98) 100 08/03/19 17:00 108 29 134/79 (97) 100 08/03/19 16:00 99.9 111 19 134/77 (96) 100 08/03/19 16:00 Mechanical Ventilator 08/03/19 16:00 30 08/03/19 15:32 105 28 100 Mechanical Ventilator 30 107 28 30 08/03/19 15:30 107 08/03/19 15:00 107 29 131/83 (99) 100 Height (Feet): 6 Height (Inches): 1.00 Weight (Pounds): 160 HEENT: mucous membranes moist, status post trach Respiratory/Chest: other - on ventilator Cardiovascular: normal rate, other - Permacath & central line Abdomen: soft, non tender, other - GT feeding Extremities: no edema Neurologic/Psychiatric: disoriented Laboratory Tests Test 08/04/19 04:00 White Blood Count 17.5 K/UL (4.8-10.8) H Red Blood Count 3.22 M/UL (4.70-6.10) L Hemoglobin 9.3 G/DL (14.2-18.0) L Hematocrit 31.2 % (42.0-52.0) L Mean Corpuscular Volume 97 FL (80-99) Mean Corpuscular Hemoglobin 28.8 PG (27.0-31.0) Mean Corpuscular Hemoglobin Concent 29.7 G/DL (32.0-36.0) L Red Cell Distribution Width 18.4 % (11.6-14.8) H Platelet Count 427 K/UL (150-450) Mean Platelet Volume 7.1 FL (6.5-10.1) Neutrophils (%) (Auto) 82.8 % (45.0-75.0) H Lymphocytes (%) (Auto) 9.7 % (20.0-45.0) L Monocytes (%) (Auto) 4.6 % (1.0-10.0) Eosinophils (%) (Auto) 2.2 % (0.0-3.0) Basophils (%) (Auto) 0.7 % (0.0-2.0) Sodium Level 144 MMOL/L (136-145) Potassium Level 3.6 MMOL/L (3.5-5.1) Chloride Level 101 MMOL/L (98-107) Carbon Dioxide Level 28 MMOL/L (21-32) Anion Gap 15 mmol/L (5-15) Blood Urea Nitrogen 84 mg/dL (7-18) H Creatinine 9.8 MG/DL (0.55-1.30) H Estimat Glomerular Filtration Rate 5.4 mL/min (>60) Glucose Level 169 MG/DL (74-106) H Calcium Level 9.1 MG/DL (8.5-10.1) Phosphorus Level 2.7 MG/DL (2.5-4.9) Magnesium Level 2.6 MG/DL (1.8-2.4) H Total Bilirubin 0.4 MG/DL (0.2-1.0) Aspartate Amino Transf (AST/SGOT) 20 U/L (15-37) Alanine Aminotransferase (ALT/SGPT) 13 U/L (12-78) Alkaline Phosphatase 122 U/L (46-116) H C-Reactive Protein, Quantitative 1.9 mg/dL (0.00-0.90) H Total Protein 8.4 G/DL (6.4-8.2) H Albumin 3.2 G/DL (3.4-5.0) L Globulin 5.2 g/dL Albumin/Globulin Ratio 0.6 (1.0-2.7) L Current Medications Medications (Trade) Dose Ordered Sig/Anthony Route PRN Reason Start Time Stop Time Status Last Admin Dose Admin Acetaminophen (Tylenol) 650 mg Q4H PRN NG For Pain 07/11/19 08:00 08/10/19 07:59 08/03/19 20:13 Albuterol Sulfate (Proventil MDI) 2 puff Q4HRT INH 06/06/19 23:00 08/30/19 18:59 08/04/19 09:55 Chlorhexidine Gluconate (Michelle-Hex 2%) 1 applic DAILY@2000 TOPIC 06/07/19 20:00 09/05/19 19:59 08/03/19 20:13 Dextrose (Dextrose 50%) 25 ml Q30M PRN IV Hypoglycemia 06/20/19 19:30 09/18/19 19:29 Dextrose (Dextrose 50%) 50 ml Q30M PRN IV Hypoglycemia 06/20/19 19:30 09/18/19 19:29 Dopamine HCl/ Dextrose 250 ml @ 0 mls/hr Q24H PRN IV For hypotension 06/13/19 08:15 09/11/19 08:14 07/17/19 08:46 Enoxaparin Sodium (Lovenox) 30 mg DAILY SUBQ 06/07/19 09:00 08/27/19 08:59 08/04/19 08:19 Epoetin Aftab (Epoetin Aftab(ESRD on dialysis)) 10,000 unit FRI-FRI-FRI SUBQ 06/07/19 21:00 08/31/19 20:59 08/02/19 20:18 Fentanyl Citrate 250 ml @ 0 mls/hr Q24H IV 07/19/19 14:06 10/17/19 14:05 07/28/19 21:16 Haloperidol Lactate 5 mg/ Dextrose 56 ml @ 224 mls/hr Q6H PRN IVPB Agitation 07/11/19 15:00 08/25/19 14:59 07/30/19 23:26 Hydralazine HCl (Apresoline) 10 mg Q4H PRN IV Blood pressure over 160 systol 06/07/19 10:15 09/05/19 10:14 Insulin Aspart (NovoLOG) EVERY 6 HOURS SUBQ 06/21/19 00:00 09/19/19 00:00 08/04/19 11:24 Lorazepam (Ativan 2mg/ml 1ml) 0.5 mg Q2H PRN IV For Anxiety 08/01/19 23:00 08/08/19 22:59 08/04/19 05:32 Metoclopramide HCl (Reglan) 5 mg Q8HR IVP 07/29/19 18:00 08/28/19 17:59 08/04/19 13:30 Midodrine (Pro-Amatine) 10 mg Q8HR NG 07/29/19 14:00 10/15/19 10:29 08/04/19 13:29 Norepinephrine Bitartrate 8 mg/ Sodium Chloride 250 ml @ 0 mls/hr Q24H IV 07/23/19 16:15 08/22/19 16:14 07/24/19 17:41 Pantoprazole (Protonix) 40 mg DAILY IVP 07/27/19 09:00 08/26/19 08:59 08/04/19 08:18 Piperacillin Sod/ Tazobactam Sod 3.375 gm/Sodium Chloride 110 ml @ 27.5 mls/hr Q12H IVPB 08/04/19 11:00 08/11/19 10:59 08/04/19 11:23 Vancomycin HCl ([facility] pharmacy to dose) 1 ea DAILY PRN MISC Per rx protocol 07/20/19 10:45 08/19/19 10:44 Ted Leyva MD Aug 04, 2019 14:07
[2019-08-04] MEDS ORDERED: Cathflo Alteplase 2mg Inj INJ SCH (15:00)
--- NOTE | 2019-08-04 15:10 | Surgery Progress Note ---
Surgery Progress Note Subjective Procedure Performed Left internal jugular temporary hemodialysis catheter removal Additional Comments HD today cath flow slow tpa Objective Last 24 Hour Vital Signs Date Time Temp Pulse Resp B/P (MAP) Pulse Ox O2 Delivery O2 Flow Rate FiO2 08/04/19 12:00 30 08/04/19 12:00 Mechanical Ventilator 08/04/19 11:14 99 26 100 Mechanical Ventilator 30 98 26 30 08/04/19 10:00 96 16 130/93 (105) 100 08/04/19 09:00 91 25 133/83 (100) 100 08/04/19 08:05 100 08/04/19 08:00 97.7 92 13 156/90 (112) 100 08/04/19 08:00 30 08/04/19 08:00 Mechanical Ventilator 08/04/19 07:08 94 26 100 Mechanical Ventilator 30 92 26 30 30 08/04/19 07:00 90 10 171/87 (115) 100 08/04/19 06:06 88 26 08/04/19 06:00 99.5 89 26 138/70 (92) 100 08/04/19 05:30 92 26 126/69 (88) 100 08/04/19 05:00 95 20 123/76 (92) 100 08/04/19 04:00 30 08/04/19 04:00 Mechanical Ventilator 08/04/19 04:00 100.2 96 26 117/76 (90) 100 08/04/19 03:30 97 26 100 Mechanical Ventilator 30 99 27 30 08/04/19 03:26 103 08/04/19 03:00 104 26 139/73 (95) 100 08/04/19 02:00 108 22 143/88 (106) 100 08/04/19 01:00 103 22 134/84 (101) 100 08/04/19 00:00 100.4 100 26 121/81 (94) 100 08/04/19 00:00 30 08/04/19 00:00 Mechanical Ventilator 08/03/19 23:49 101 08/03/19 23:30 100 29 100 Mechanical Ventilator 30 102 28 30 08/03/19 23:00 101 28 123/74 (90) 100 08/03/19 22:30 100.6 102 26 123/78 (93) 100 08/03/19 22:00 99 26 124/70 (88) 100 08/03/19 21:13 101.2 08/03/19 21:00 111 26 102/70 (81) 100 08/03/19 20:00 30 08/03/19 20:00 Mechanical Ventilator 08/03/19 20:00 101.4 109 31 140/81 (100) 100 08/03/19 19:30 107 32 100 Mechanical Ventilator 30 108 30 30 08/03/19 19:24 107 08/03/19 19:00 107 23 131/80 (97) 100 08/03/19 18:04 110 36 138/79 (98) 100 08/03/19 17:00 108 29 134/79 (97) 100 08/03/19 16:00 99.9 111 19 134/77 (96) 100 08/03/19 16:00 Mechanical Ventilator 08/03/19 16:00 30 08/03/19 15:32 105 28 100 Mechanical Ventilator 30 107 28 30 08/03/19 15:30 107 I&O Intake and Output 08/03/19 08/04/19 19:00 07:00 Intake Total 796 ml 745.0 ml Output Total 0 ml 400 ml Balance 796 ml 345.0 ml Free Water 90 ml IV Total 56 ml 55.0 ml Tube Feeding 540 ml 540 ml Other 200 ml 60 ml Output Urine Total 0 ml 0 ml Stool Total 0 ml 400 ml # Bowel Movements 1 Dressing: other Wound: other Drains: other Cardiovascular: RSR Respiratory: decreased breath sounds Abdomen: soft, non-tender, present bowel sounds Extremities: no cyanosis Laboratory Tests Test 08/04/19 04:00 White Blood Count 17.5 K/UL (4.8-10.8) H Red Blood Count 3.22 M/UL (4.70-6.10) L Hemoglobin 9.3 G/DL (14.2-18.0) L Hematocrit 31.2 % (42.0-52.0) L Mean Corpuscular Volume 97 FL (80-99) Mean Corpuscular Hemoglobin 28.8 PG (27.0-31.0) Mean Corpuscular Hemoglobin Concent 29.7 G/DL (32.0-36.0) L Red Cell Distribution Width 18.4 % (11.6-14.8) H Platelet Count 427 K/UL (150-450) Mean Platelet Volume 7.1 FL (6.5-10.1) Neutrophils (%) (Auto) 82.8 % (45.0-75.0) H Lymphocytes (%) (Auto) 9.7 % (20.0-45.0) L Monocytes (%) (Auto) 4.6 % (1.0-10.0) Eosinophils (%) (Auto) 2.2 % (0.0-3.0) Basophils (%) (Auto) 0.7 % (0.0-2.0) Sodium Level 144 MMOL/L (136-145) Potassium Level 3.6 MMOL/L (3.5-5.1) Chloride Level 101 MMOL/L (98-107) Carbon Dioxide Level 28 MMOL/L (21-32) Anion Gap 15 mmol/L (5-15) Blood Urea Nitrogen 84 mg/dL (7-18) H Creatinine 9.8 MG/DL (0.55-1.30) H Estimat Glomerular Filtration Rate 5.4 mL/min (>60) Glucose Level 169 MG/DL (74-106) H Calcium Level 9.1 MG/DL (8.5-10.1) Phosphorus Level 2.7 MG/DL (2.5-4.9) Magnesium Level 2.6 MG/DL (1.8-2.4) H Total Bilirubin 0.4 MG/DL (0.2-1.0) Aspartate Amino Transf (AST/SGOT) 20 U/L (15-37) Alanine Aminotransferase (ALT/SGPT) 13 U/L (12-78) Alkaline Phosphatase 122 U/L (46-116) H C-Reactive Protein, Quantitative 1.9 mg/dL (0.00-0.90) H Total Protein 8.4 G/DL (6.4-8.2) H Albumin 3.2 G/DL (3.4-5.0) L Globulin 5.2 g/dL Albumin/Globulin Ratio 0.6 (1.0-2.7) L Plan Problems: (1) Suspected COVID-19 virus infection (2) HTN (hypertension) (3) CASSANDRA (acute kidney injury) Assessment & Plan: Needs urgent HD needs access patient okay and consented see note will follow with recs new line placed discussed with team and nephrology HD line functional when checked has TPA now please use appropriately Cathflo used again this flow during dialysis on 430 was low. Will monitor may need line change 5/4 plan for HD as per renal may need to take fluid off with HD edema anasarca dressings saturated and changed will monitor cont with HD IJ left line placed for HD given extent of prior line in place. leukocytosis blood cx negative may need to change out line new line okay HD going well Continue HD as tolerated May need pressors for HD as needed (4) Anemia in chronic kidney disease (CKD) (5) Anemia (6) Renal failure (7) Suspected COVID-19 virus infection Assessment & Plan: Pt deconditioned and despite all skin preventions Pt noted to have developed several pressure injuries. . Stable dry eschar noted to clefts of R and L ears. No erythema noted . DTPI noted to L trochanter. Base of injury is maroon in colour with marginal erythema along borders. Partially opened DTPI Sacrum, R and L Buttocks. Base of wound is maroon with two small open wounds L sacrum and L buttocks. Pt has an APM/MOMO Mattress overlay and is being positioned with pillows as per tolerance and within protocols. worsening despite medical efforts will cont to provide therapy Tx.Plan: Apply Cavilon Skin Barrier to both ears Daily and prn. Apply Moisture Barrier Paste to Sacrum,R and L Buttocks. Cover with Optifoam drsgs. Change every 3 days and PRN. Apply Cavilon Skin Barrier to R and L trochanter. Cover each site with Optifoam drsgs.Change every 7 days and PRN. Apply Cavilon Skin Barrier to both heels. Cover each heel with Optifoam drsg. Change every 7 days and prn. Off-load heels with pillow. Reposition at least every 2hours or as tolerated. APM/MOMO Mattress overlay. (8) COVID-19 Assessment & Plan: COVID + c diff negative febrile leukocytosis renal insufficiency see above cont resp care Rx as per ID worsening on vent support now cxr noted on pressors prognosis guarded repeat covid ++ weaning vent and pressors off slowly showing improvement slowly recovering will need trach as unable to wean vent safely called and spoke with country conservatorship. consent obtained s/p trach pending peg worsening on levo max (9) Sepsis Assessment & Plan: worsening leukocytosis febrile on pressors discussed with ID. lines evaluated and clean. he is septic on pressors and needs central access in difficult venous access patient blood cultures negative will monitor temp HD cath out now with permacath left tlc still subclavian needed line c/d/i Yaniv Mast Aug 04, 2019 15:10
[2019-08-04] MEDS ORDERED: Sterile Water Irrig 1000ml IRRIG ONE (17:51)
[2019-08-04] MEDS ORDERED: NS 275ml ONE (17:51)
[2019-08-04] MEDS ORDERED: Tubing IV Secondary IV ONE (17:51)
--- NOTE | 2019-08-04 18:35 | Psych Consult Progress Note ---
Psychiatry Progress Note Psychiatry Progress Note Subjective the pt is awake and has episodes of agitation. requires psych meds and restraints. Medications Current Medications Medications (Trade) Dose Ordered Sig/Anthony Route PRN Reason Start Time Stop Time Status Last Admin Dose Admin Acetaminophen (Tylenol) 650 mg Q4H PRN NG For Pain 07/11/19 08:00 08/10/19 07:59 08/03/19 20:13 Albuterol Sulfate (Proventil MDI) 2 puff Q4HRT INH 06/06/19 23:00 08/30/19 18:59 08/04/19 09:55 Chlorhexidine Gluconate (Michelle-Hex 2%) 1 applic DAILY@2000 TOPIC 06/07/19 20:00 09/05/19 19:59 08/03/19 20:13 Dextrose (Dextrose 50%) 25 ml Q30M PRN IV Hypoglycemia 06/20/19 19:30 09/18/19 19:29 Dextrose (Dextrose 50%) 50 ml Q30M PRN IV Hypoglycemia 06/20/19 19:30 09/18/19 19:29 Dopamine HCl/ Dextrose 250 ml @ 0 mls/hr Q24H PRN IV For hypotension 06/13/19 08:15 09/11/19 08:14 07/17/19 08:46 Enoxaparin Sodium (Lovenox) 30 mg DAILY SUBQ 06/07/19 09:00 08/27/19 08:59 08/04/19 08:19 Epoetin Aftab (Epoetin Aftab(ESRD on dialysis)) 10,000 unit FRI-FRI-FRI SUBQ 06/07/19 21:00 08/31/19 20:59 08/02/19 20:18 Fentanyl Citrate 250 ml @ 0 mls/hr Q24H IV 07/19/19 14:06 10/17/19 14:05 07/28/19 21:16 Haloperidol Lactate 5 mg/ Dextrose 56 ml @ 224 mls/hr Q6H PRN IVPB Agitation 07/11/19 15:00 08/25/19 14:59 07/30/19 23:26 Hydralazine HCl (Apresoline) 10 mg Q4H PRN IV Blood pressure over 160 systol 06/07/19 10:15 09/05/19 10:14 Insulin Aspart (NovoLOG) EVERY 6 HOURS SUBQ 06/21/19 00:00 09/19/19 00:00 08/04/19 18:00 Lorazepam (Ativan 2mg/ml 1ml) 0.5 mg Q2H PRN IV For Anxiety 08/01/19 23:00 08/08/19 22:59 08/04/19 05:32 Metoclopramide HCl (Reglan) 5 mg Q8HR IVP 07/29/19 18:00 08/28/19 17:59 08/04/19 13:30 Midodrine (Pro-Amatine) 10 mg Q8HR NG 07/29/19 14:00 10/15/19 10:29 08/04/19 13:29 Norepinephrine Bitartrate 8 mg/ Sodium Chloride 250 ml @ 0 mls/hr Q24H IV 07/23/19 16:15 08/22/19 16:14 07/24/19 17:41 Pantoprazole (Protonix) 40 mg DAILY IVP 07/27/19 09:00 08/26/19 08:59 08/04/19 08:18 Piperacillin Sod/ Tazobactam Sod 3.375 gm/Sodium Chloride 110 ml @ 27.5 mls/hr Q12H IVPB 08/04/19 11:00 08/11/19 10:59 08/04/19 11:23 Vancomycin HCl ([facility] pharmacy to dose) 1 ea DAILY PRN MISC Per rx protocol 07/20/19 10:45 08/19/19 10:44 Neurological/Psychiatric: Reports: anxiety Allergies: Coded Allergies: No Known Allergies (Unverified , 05/28/19) Objective Data Height (Feet): 6 Height (Inches): 1.00 Weight (Pounds): 160 General Appearance: WD/WN, no apparent distress, alert, confused Assessment/Plan Mulga I: Acute encephalopathy. MDD Status: progressing, unchanged, deteriorating Assessment/Plan: The pt benefits from restraints cont psychotropic meds dw nurse Guicho Pimentel MD Aug 04, 2019 18:35
[2019-08-04] MEDS: Dyna-Hex 2% Top Sol 2oz TOPIC SCH (20:17)
[2019-08-04] MEDS: Epoetin Alfa-EPBX(ESRD on dialysis)10,000 unit/ml vial SUBQ SCH (21:03)
[2019-08-04] MEDS ORDERED: Haloperidol Lactate 5 MG in D5W 55 ML IVPB PRN (21:38)
[2019-08-04] MEDS ORDERED: Midodrine 10mg tab NG SCH (22:00)
[2019-08-04] MEDS ORDERED: Metoclopramide 10mg/2ml Inj IVP SCH (22:00)
--- NOTE | 2019-08-04 22:08 | General Progress Note ---
Assessment/Plan Problem List: (1) HTN (hypertension) ICD Codes: I10 - Essential (primary) hypertension SNOMED: 18060840 (2) CASSANDRA (acute kidney injury) ICD Codes: N17.9 - Acute kidney failure, unspecified SNOMED: 4831849, 87467846 (3) Anemia in chronic kidney disease (CKD) ICD Codes: N18.9 - Chronic kidney disease, unspecified; D63.1 - Anemia in chronic kidney disease SNOMED: 894679678 (4) Renal failure ICD Codes: N19 - Unspecified kidney failure SNOMED: 34895784 (5) Respiratory failure requiring intubation ICD Codes: J96.90 - Respiratory failure, unspecified, unspecified whether with hypoxia or hypercapnia; A41.89 - Other specified sepsis SNOMED: 406078652, 702418536 (6) Pneumonia due to COVID-19 virus ICD Codes: U07.1 - COVID-19; J12.89 - Other viral pneumonia SNOMED: 688945213, 841137510 (7) Sepsis due to severe acute respiratory syndrome coronavirus 2 (SARS-CoV-2) ICD Codes: U07.1 - COVID-19; A41.89 - Other specified sepsis SNOMED: 103891606, 903586919 Status: progressing, unchanged, deteriorating Assessment/Plan: off pressors got diaylsis today weak worsening leukocyosis sepsis needs ltac placement afebrile trach/pege lyts ok Subjective ROS Limited/Unobtainable: Yes Allergies: Coded Allergies: No Known Allergies (Unverified , 05/28/19) Objective Last 24 Hour Vital Signs Date Time Temp Pulse Resp B/P (MAP) Pulse Ox O2 Delivery O2 Flow Rate FiO2 08/04/19 21:48 100.5 110 18 114/82 (93) 100 08/04/19 21:00 109 0 117/68 (84) 100 08/04/19 20:00 30 08/04/19 20:00 Mechanical Ventilator 08/04/19 20:00 102 08/04/19 20:00 100.2 106 18 122/71 (88) 100 08/04/19 19:00 111 115/74 (88) 100 08/04/19 18:00 109 18 118/71 (87) 100 08/04/19 17:00 104 20 121/62 (81) 100 08/04/19 16:15 137/88 08/04/19 16:00 98.0 107 22 137/88 (104) 100 08/04/19 16:00 30 08/04/19 16:00 Mechanical Ventilator 08/04/19 16:00 104 08/04/19 15:28 110 30 30 08/04/19 15:00 93 16 123/79 (94) 100 08/04/19 14:00 100 17 126/85 (99) 100 08/04/19 13:00 95 18 135/77 (96) 100 08/04/19 12:00 97.6 94 16 124/70 (88) 100 08/04/19 12:00 30 08/04/19 12:00 Mechanical Ventilator 08/04/19 12:00 96 08/04/19 11:14 99 26 100 Mechanical Ventilator 30 98 26 30 08/04/19 11:00 97 16 124/74 (91) 100 08/04/19 10:00 96 16 130/93 (105) 100 08/04/19 09:00 91 25 133/83 (100) 100 08/04/19 08:05 100 08/04/19 08:00 97.7 92 13 156/90 (112) 100 08/04/19 08:00 94 08/04/19 08:00 30 08/04/19 08:00 Mechanical Ventilator 08/04/19 07:08 94 26 100 Mechanical Ventilator 30 92 26 30 30 08/04/19 07:00 90 10 171/87 (115) 100 08/04/19 06:06 88 26 08/04/19 06:00 99.5 89 26 138/70 (92) 100 08/04/19 05:30 92 26 126/69 (88) 100 08/04/19 05:00 95 20 123/76 (92) 100 08/04/19 04:00 30 08/04/19 04:00 Mechanical Ventilator 08/04/19 04:00 100.2 96 26 117/76 (90) 100 08/04/19 03:30 97 26 100 Mechanical Ventilator 30 99 27 30 08/04/19 03:26 103 08/04/19 03:00 104 26 139/73 (95) 100 08/04/19 02:00 108 22 143/88 (106) 100 6/24/20 01:00 103 22 134/84 (101) 100 08/04/19 00:00 100.4 100 26 121/81 (94) 100 08/04/19 00:00 30 08/04/19 00:00 Mechanical Ventilator 08/03/19 23:49 101 08/03/19 23:30 100 29 100 Mechanical Ventilator 30 102 28 30 08/03/19 23:00 101 28 123/74 (90) 100 08/03/19 22:30 100.6 102 26 123/78 (93) 100 Intake and Output 08/03/19 08/04/19 19:00 07:00 Intake Total 796 ml 745.0 ml Output Total 0 ml 400 ml Balance 796 ml 345.0 ml Free Water 90 ml IV Total 56 ml 55.0 ml Tube Feeding 540 ml 540 ml Other 200 ml 60 ml Output Urine Total 0 ml 0 ml Stool Total 0 ml 400 ml # Bowel Movements 1 Laboratory Tests 08/04/19 04:00: White Blood Count 17.5H, Red Blood Count 3.22L, Hemoglobin 9.3L, Hematocrit 31.2L, Mean Corpuscular Volume 97, Mean Corpuscular Hemoglobin 28.8, Mean Corpuscular Hemoglobin Concent 29.7L, Red Cell Distribution Width 18.4H, Platelet Count 427, Mean Platelet Volume 7.1, Neutrophils (%) (Auto) 82.8H, Lymphocytes (%) (Auto) 9.7L, Monocytes (%) (Auto) 4.6, Eosinophils (%) (Auto) 2.2, Basophils (%) (Auto) 0.7, Sodium Level 144, Potassium Level 3.6, Chloride Level 101, Carbon Dioxide Level 28, Anion Gap 15, Blood Urea Nitrogen 84H, Creatinine 9.8H, Estimat Glomerular Filtration Rate 5.4, Glucose Level 169H, Calcium Level 9.1, Phosphorus Level 2.7, Magnesium Level 2.6H, Total Bilirubin 0.4, Aspartate Amino Transf (AST/SGOT) 20, Alanine Aminotransferase (ALT/SGPT) 13, Alkaline Phosphatase 122H, C-Reactive Protein, Quantitative 1.9H, Total Protein 8.4H, Albumin 3.2L, Globulin 5.2, Albumin/Globulin Ratio 0.6L Height (Feet): 6 Height (Inches): 1.00 Weight (Pounds): 160 Karishma Mulligan MD Aug 04, 2019 22:08
[2019-08-04] MEDS: Acetaminophen 650mg/20.3ml NG PRN (22:38)
[2019-08-04] MEDS: Piperacillin/Tazobactam 3.375 GM in NS 110 ML IVPB SCH (22:39)
[2019-08-05] VITALS: BP 123/81
[2019-08-05 04:00] VITALS: BP 137/84
[2019-08-05] MEDS: Midodrine 10mg tab NG SCH ×3 (05:27→22:00)
[2019-08-05] MEDS: NovoLOG Insulin Flexpen SUBQ SCH ×4 (05:37→23:10)
[2019-08-05] MEDS: Metoclopramide 10mg/2ml Inj IVP SCH ×3 (05:45→22:53)
--- NOTE | 2019-08-05 06:45 | Hematology/Onc Progress Note ---
Assessment/Plan Assessment/Plan Assessment and Recs: # Anemia of chronic disease, likely related ot underlying kidney disease has COIVD19++++++ --> hgb trend 9-->8-->7.3-->7.9-->6.8->9.5-->10->8.3-->7.7-->7.1-->8.9->8.8->7.7 -->8.1 ->7.9-->7.7 -->8.2-->8.1 -->7.9-->8.5 -->9->9.2-->9.5-->10.7 -->9.8--> 10.2-->11.8 -->11.9-->8.8 ->9.4->9-->8.3 -->8.5-->9.4->9.8-->9-->8.3 --> transfuse as needed, hgb goal >7 --> no evidence of hemolysis --> peripheral smear has been reviewed --> epogen started 3 x a week ==>> transfuse 06/08, 06/15 # Leukocytosis likely related to suspected COVID-19 virus infection --> completed plaquenil --> trend smear as needed --> wbc trend: 4-->11-->14.5-->21-->26-->21->24--.28-->23-->19-->16.2-->21--> 11.2 -->12.5-->12.3-->12.4-->18.5-->18.5-->17->13-->18.2-->22.2-->25-->17.4-->17 -->14.2-->14-->16-->15.5-->9->17 --> pulm is aware --> on abx cefepime/vanc->zosyn/vanc-->dom/vanc-->dom-->levaquin/cefepime--> vanc --> pressors as needed --> 06/27 covid 19++ --> pressors as needed in icu # Thrombocytopenia/Lymphopenia --> likely related to covid19 --> plt 129k-->186k-->251-->285-->384 -->430-->539-->515-->447-->451-->404-->544 -->244 # Respiratory failure with covid19+ --> s/p vent/trach --> weaning # Possible Pneumonia --> abx completed --> 07/13 cxr: Improved right lung infiltrates. # Cardiomegaly # Transaminitis with Elevated AST # COPD # Chronic Kidney Disease --> per renal hd --> s/p right femoral cath 07/02 # Hypertension # peg # Dvt ppx lovenox Appreciate consultation and ernesto Rn Subjective Allergies: Coded Allergies: No Known Allergies (Unverified , 05/28/19) All Systems: reviewed and negative except above Subjective 06/01 nv, extremely agitated, not allowing labs draws, no night sweats, cbc ordered 06/02 confused, restraints, on abx and plaquenil, hgb 7.9, nrb 15 L 06/03 is with nonrebreather, but not compliant, remains confused 06/05 no bleeding, labs noted, no major bleeding, otherwise comfortable 06/06 labs reviewed, no bleeding, meds noted, no night sweats, on levo and nonrebreather 06/07 labs noted, no bleeding, meds reviewed, no bleeding, wbc higher 06/08 to get 2 units prbc, no night sweats, meds reviewed 06/09 is on cefepime and vanc, labs noted, ernesto Rn, no bleeding 06/10 no major changes, labs reviewed, wbc 28k, on abx, cefepime 06/12 remains in icu, labs noted, no night sweats or bleeding 06/13 sluggish pupils, remains agitated, per psych, no bleding, on vent, wbc sitll high 06/14 still confused, remains on vent, with ng, running nepro, on pressors 06/15 icu, febrile, non verbal, hgb 7.1, blood pending, completed plaq 06/16 remains in the icu, nonverbal, plan for hd tomorrow, ernesto rn 06/17 in icu, on pressor, nonverbal, on abx, no bleeding 06/19 no bleeding, nonverbal in icu, hgb is 7.7 06/20 on zosyn, tube feeds, vent, labs noted, in icu, nv 06/21 gettng hd as per renal, in icu, nv, no bleeding, tfs 06/22 icu, cxr with slight improvement, cooling blanket, weaning today 06/23 wewaning, in icu, on vent, abx, and pressors as needed, labs noted 06/24 failed weaning, off abx, completed plaquenil, hgb 8.1 06/26 icu, weaning for this am, afebrile, hgb 8 06/27 in icu, remains comotose, weaning started on peep, no night sweats 06/28 weaning today, off abx, restraints, no distress, h/h stable 06/29 covid 19+, failed weaning, no blood transfusion needed 06/30 icu, on vent, labs reviewed, no distress 07/01 in icu, may need trach, remains on hd per renal, labs noted 07/02 s/p right fem cath, failed wean, no new orders, h/h stable 07/03 is somewhat more responsive, on abx, no bleeding, weaning and HD today 07/04 hd as per renal, weaning off vent, no bleeding today 07/05 obtunded, no bleding overnight, with hd for tomorrow noted, vanc 07/08 no events, remains with trach/vent, ernesto Rn, no bleeding, cbc is noted 07/09 no overnight events, peg for friday pending consent 07/10 off pressors, vent, restraints, labs reviewed 07/11 no acute events is on pressors, intubated, agitated still 07/12 is resting comfortably, no bleeding, emds reviewed and noted 07/13 icu, no events, trach, cxr reviewed, 07/14 is onv ent, tachypneic and tachycardic, labs noted 07/15 remains confused, intubated, ernesto Rn, no bleeding 07/17 icu, cxr improving infiltrates, levo gtt, airborne/contact isolation 07/18 is on broad spectrum abx, is on levaquin and cefepime, wbc 16 agitated 07/19 icu, levo gtt, cxr unchanged, tachy, hd thursday 07/20 sedated, safety restraints, labs reviewed 07/21 hd was done yesterday, lower pressor requirements, wbc is worse, on abx 07/22 icu, meds and labs reviewed, vent, no distress 07/24 on vent, in icu, labs noted, remains agitated, and confused 07/25 remains obtunded, on vent, on pressor, hgb 9, wbc elev 07/26 icu, levo gtt, vent, iv abx, nonverbal 07/27 failed weaning, labs reviewed, repeat covid swab pending 07/28 labs are noted, no bleeding, on vent/trach gtube feeds dw rn 07/29 iuc, restraints, no new changes, vent 07/31 is asleep, comfortable, no events, labs reviewed, restraints+ 08/01 no events, agitated, no bleeding, meds noted, on gtube feeds 08/02 remains on vent, no bleeding, wbc higher 19, hgb 9, on abx 08/03 labs noted, on vent, no bleeding, wbc 17, hgb better 08/04 labs reviewed, no bleeding, does not require prbc, on vent Objective Objective Current Medications Medications (Trade) Dose Ordered Sig/Anthony Route PRN Reason Start Time Stop Time Status Last Admin Dose Admin Acetaminophen (Tylenol) 650 mg Q4H PRN NG For Pain 08/04/19 21:38 09/03/19 21:37 08/04/19 22:38 Chlorhexidine Gluconate (Michelle-Hex 2%) 1 applic DAILY@1999 TOPIC 08/05/19 20:00 09/05/19 19:59 Dextrose (Dextrose 50%) 25 ml Q30M PRN IV Hypoglycemia 08/04/19 22:00 09/18/19 19:29 Dextrose (Dextrose 50%) 50 ml Q30M PRN IV Hypoglycemia 08/04/19 22:00 09/18/19 19:29 Enoxaparin Sodium (Lovenox) 30 mg DAILY SUBQ 08/05/19 09:00 08/27/19 08:59 Epoetin Aftab (Epoetin Aftab(ESRD on dialysis)) 10,000 unit FRI-WED-FRI SUBQ 08/06/19 21:00 08/31/19 20:59 Haloperidol Lactate 5 mg/ Dextrose 56 ml @ 224 mls/hr Q6H PRN IVPB Agitation 08/04/19 21:38 09/18/19 21:37 Hydralazine HCl (Apresoline) 10 mg Q4H PRN IV Blood pressure over 160 systol 08/04/19 21:39 11/02/19 21:38 Insulin Aspart (NovoLOG) EVERY 6 HOURS SUBQ 08/05/19 00:00 09/19/19 00:00 08/05/19 05:37 Lorazepam (Ativan 2mg/ml 1ml) 0.5 mg Q2H PRN IV For Anxiety 08/04/19 21:39 08/11/19 21:38 Metoclopramide HCl (Reglan) 5 mg Q8HR IVP 08/05/19 06:00 09/04/19 05:59 08/05/19 05:45 Midodrine (Pro-Amatine) 10 mg Q8HR NG 08/05/19 06:00 11/03/19 05:59 Pantoprazole (Protonix) 40 mg DAILY IVP 08/05/19 09:00 08/26/19 08:59 Piperacillin Sod/ Tazobactam Sod 3.375 gm/Sodium Chloride 110 ml @ 27.5 mls/hr Q12H IVPB 08/04/19 23:00 08/11/19 10:59 08/04/19 22:39 Vancomycin HCl (Vanco pharmacy to dose) 1 ea DAILY PRN MISC Per rx protocol 08/05/19 09:00 08/19/19 10:44 Last 24 Hour Vital Signs Date Time Temp Pulse Resp B/P (MAP) Pulse Ox O2 Delivery O2 Flow Rate FiO2 08/05/19 04:00 30 08/05/19 04:00 Mechanical Ventilator 08/05/19 04:00 95 08/05/19 04:00 98.9 97 28 137/84 (101) 100 08/05/19 02:43 104 26 100 Mechanical Ventilator 30 106 26 30 08/05/19 00:00 95 08/05/19 00:00 30 08/05/19 00:00 Mechanical Ventilator 08/05/19 00:00 99.6 91 26 123/81 (95) 100 08/04/19 23:08 100.2 08/04/19 22:46 103 26 100 Mechanical Ventilator 30 106 26 30 08/04/19 21:48 100.5 110 18 114/82 (93) 100 08/04/19 21:00 109 0 117/68 (84) 100 08/04/19 20:00 30 08/04/19 20:00 Mechanical Ventilator 08/04/19 20:00 102 08/04/19 20:00 100.2 106 18 122/71 (88) 100 08/04/19 19:54 106 26 100 Mechanical Ventilator 30 106 26 30 08/04/19 19:00 111 115/74 (88) 100 08/04/19 18:00 109 18 118/71 (87) 100 08/04/19 17:00 104 20 121/62 (81) 100 08/04/19 16:15 137/88 08/04/19 16:00 98.0 107 22 137/88 (104) 100 08/04/19 16:00 30 08/04/19 16:00 Mechanical Ventilator 08/04/19 16:00 104 08/04/19 15:28 110 30 30 08/04/19 15:00 93 16 123/79 (94) 100 08/04/19 14:00 100 17 126/85 (99) 100 08/04/19 13:00 95 18 135/77 (96) 100 08/04/19 12:00 97.6 94 16 124/70 (88) 100 08/04/19 12:00 30 08/04/19 12:00 Mechanical Ventilator 08/04/19 12:00 96 08/04/19 11:14 99 26 100 Mechanical Ventilator 30 98 26 30 08/04/19 11:00 97 16 124/74 (91) 100 08/04/19 10:00 96 16 130/93 (105) 100 08/04/19 09:00 91 25 133/83 (100) 100 08/04/19 08:05 100 08/04/19 08:00 97.7 92 13 156/90 (112) 100 08/04/19 08:00 94 08/04/19 08:00 30 08/04/19 08:00 Mechanical Ventilator 08/04/19 07:08 94 26 100 Mechanical Ventilator 30 92 26 30 30 08/04/19 07:00 90 10 171/87 (115) 100 08/04/19 06:06 88 26 08/04/19 06:00 99.5 89 26 138/70 (92) 100 08/04/19 05:30 92 26 126/69 (88) 100 08/04/19 05:00 95 20 123/76 (92) 100 08/04/19 04:00 30 08/04/19 04:00 Mechanical Ventilator 08/04/19 04:00 100.2 96 26 117/76 (90) 100 08/04/19 03:30 97 26 100 Mechanical Ventilator 30 99 27 30 08/04/19 03:26 103 08/04/19 03:00 104 26 139/73 (95) 100 08/04/19 02:00 108 22 143/88 (106) 100 08/04/19 01:00 103 22 134/84 (101) 100 08/04/19 00:00 100.4 100 26 121/81 (94) 100 08/04/19 00:00 30 08/04/19 00:00 Mechanical Ventilator 08/03/19 23:49 101 08/03/19 23:30 100 29 100 Mechanical Ventilator 30 102 28 30 08/03/19 23:00 101 28 123/74 (90) 100 08/03/19 22:30 100.6 102 26 123/78 (93) 100 08/03/19 22:00 99 26 124/70 (88) 100 08/03/19 21:13 101.2 08/03/19 21:00 111 26 102/70 (81) 100 08/03/19 20:00 30 08/03/19 20:00 Mechanical Ventilator 08/03/19 20:00 101.4 109 31 140/81 (100) 100 08/03/19 19:30 107 32 100 Mechanical Ventilator 30 108 30 30 08/03/19 19:24 107 08/03/19 19:00 107 23 131/80 (97) 100 08/03/19 18:04 110 36 138/79 (98) 100 08/03/19 17:00 108 29 134/79 (97) 100 08/03/19 16:00 99.9 111 19 134/77 (96) 100 08/03/19 16:00 Mechanical Ventilator 08/03/19 16:00 30 08/03/19 15:32 105 28 100 Mechanical Ventilator 30 107 28 30 08/03/19 15:30 107 08/03/19 15:00 107 29 131/83 (99) 100 08/03/19 14:00 107 23 130/80 (97) 100 08/03/19 13:00 99.5 113 26 119/72 (88) 100 08/03/19 12:00 117 08/03/19 12:00 Mechanical Ventilator 08/03/19 12:00 114 23 102/63 (76) 100 08/03/19 11:22 30 08/03/19 11:17 100 08/03/19 11:15 119 42 100 Mechanical Ventilator 30 119 38 30 08/03/19 11:00 122 41 132/80 (97) 100 08/03/19 10:00 118 18 129/76 (93) 100 08/03/19 09:55 30 08/03/19 09:25 108 24 30 30 08/03/19 09:00 106 18 92/66 (75) 100 08/03/19 08:30 102 21 100/68 (79) 100 08/03/19 08:00 30 08/03/19 08:00 98.5 102 18 116/62 (80) 100 08/03/19 08:00 111 08/03/19 08:00 Mechanical Ventilator 08/03/19 07:10 101 26 100 Mechanical Ventilator 30 98 26 30 08/03/19 07:00 102 23 113/66 (82) 100 Intake and Output 08/04/19 08/05/19 19:00 07:00 Intake Total 485 ml 575 ml Output Total 1000 ml 300 ml Balance -515 ml 275 ml Free Water 80 ml 80 ml Tube Feeding 405 ml 495 ml Output Urine Total 0 ml 0 ml Stool Total 300 ml Hemodialysis UF 1000 ml Labs Test 08/03/19 04:30 08/04/19 04:00 08/05/19 03:15 White Blood Count 18.8 K/UL (4.8-10.8) 17.5 K/UL (4.8-10.8) Red Blood Count 3.25 M/UL (4.70-6.10) 3.22 M/UL (4.70-6.10) Hemoglobin 9.4 G/DL (14.2-18.0) 9.3 G/DL (14.2-18.0) Hematocrit 31.3 % (42.0-52.0) 31.2 % (42.0-52.0) Mean Corpuscular Volume 96 FL (80-99) 97 FL (80-99) Mean Corpuscular Hemoglobin 29.0 PG (27.0-31.0) 28.8 PG (27.0-31.0) Mean Corpuscular Hemoglobin Concent 30.1 G/DL (32.0-36.0) 29.7 G/DL (32.0-36.0) Red Cell Distribution Width 18.4 % (11.6-14.8) 18.4 % (11.6-14.8) Platelet Count 456 K/UL (150-450) 427 K/UL (150-450) Mean Platelet Volume 7.5 FL (6.5-10.1) 7.1 FL (6.5-10.1) Neutrophils (%) (Auto) % (45.0-75.0) 82.8 % (45.0-75.0) Lymphocytes (%) (Auto) % (20.0-45.0) 9.7 % (20.0-45.0) Monocytes (%) (Auto) % (1.0-10.0) 4.6 % (1.0-10.0) Eosinophils (%) (Auto) % (0.0-3.0) 2.2 % (0.0-3.0) Basophils (%) (Auto) % (0.0-2.0) 0.7 % (0.0-2.0) Differential Total Cells Counted 100 Neutrophils % (Manual) 83 % (45-75) Lymphocytes % (Manual) 8 % (20-45) Monocytes % (Manual) 4 % (1-10) Eosinophils % (Manual) 5 % (0-3) Basophils % (Manual) 0 % (0-2) Band Neutrophils 0 % (0-8) Platelet Estimate Increased Platelet Morphology Normal Anisocytosis 1+ Sodium Level 142 MMOL/L (136-145) 144 MMOL/L (136-145) Potassium Level 3.7 MMOL/L (3.5-5.1) 3.6 MMOL/L (3.5-5.1) Chloride Level 102 MMOL/L (98-107) 101 MMOL/L (98-107) Carbon Dioxide Level 28 MMOL/L (21-32) 28 MMOL/L (21-32) Anion Gap 12 mmol/L (5-15) 15 mmol/L (5-15) Blood Urea Nitrogen 63 mg/dL (7-18) 84 mg/dL (7-18) Creatinine 8.6 MG/DL (0.55-1.30) 9.8 MG/DL (0.55-1.30) Estimat Glomerular Filtration Rate 6.2 mL/min (>60) 5.4 mL/min (>60) Glucose Level 120 MG/DL (74-106) 169 MG/DL (74-106) Calcium Level 9.2 MG/DL (8.5-10.1) 9.1 MG/DL (8.5-10.1) Phosphorus Level 2.0 MG/DL (2.5-4.9) 2.7 MG/DL (2.5-4.9) Magnesium Level 2.5 MG/DL (1.8-2.4) 2.6 MG/DL (1.8-2.4) Total Bilirubin 0.4 MG/DL (0.2-1.0) 0.4 MG/DL (0.2-1.0) Aspartate Amino Transf (AST/SGOT) 21 U/L (15-37) 20 U/L (15-37) Alanine Aminotransferase (ALT/SGPT) 11 U/L (12-78) 13 U/L (12-78) Alkaline Phosphatase 131 U/L (46-116) 122 U/L (46-116) C-Reactive Protein, Quantitative 1.8 mg/dL (0.00-0.90) 1.9 mg/dL (0.00-0.90) Pro-B-Type Natriuretic Peptide 07412 pg/mL (0-125) Total Protein 8.3 G/DL (6.4-8.2) 8.4 G/DL (6.4-8.2) Albumin 2.8 G/DL (3.4-5.0) 3.2 G/DL (3.4-5.0) Globulin 5.5 g/dL 5.2 g/dL Albumin/Globulin Ratio 0.5 (1.0-2.7) 0.6 (1.0-2.7) Random Vancomycin Level 18.8 ug/mL Height (Feet): 6 Height (Inches): 1.00 Weight (Pounds): 160 Objective General: nv, confused, sedated Heent: bilateral eye normal inspection, bilateral eye PERRL ++Ng Respiratory: normal breath sounds, no respiratory distress, intubated/vent +++ trach+++ Cardiovascular: regular rate, rhythm, no edema Gastrointestinal: normal inspection, soft, non-distended, peg+ Rectal: deferred Musculoskeletal: normal range of motion, non-tender, R fem cath++ Neurologic: alert, motor strength/tone normal, sensory intact, responsive, speech normal Skin: Decubitus/Ulcer - See RN skin exam. : jamaal+ Greg Cabral MD Aug 05, 2019 06:45
[2019-08-05 08:00] VITALS: BP 139/83
[2019-08-05] MEDS: Enoxaparin 30mg Inj SUBQ SCH (08:29)
[2019-08-05] MEDS: Pantoprazole Inj IVP SCH (08:30)
[2019-08-05] MEDS ORDERED: Vancomycin 750mg/NS 275ml IVPB ONE ×2 (10:00)
--- NOTE | 2019-08-05 10:05 | Nephrology Progress Note ---
Assessment/Plan Problem List: (1) CASSANDRA (acute kidney injury) (2) Anemia in chronic kidney disease (CKD) (3) HTN (hypertension) (4) COVID-19 Assessment Acute renal failure most likely superimposed on chronic kidney disease Suspected COVID-19 virus infection Possible Pneumonia, lymphopenia, elevated AST Cardiomegaly, possible CHF COPD Hypertension Anemia, most likely related to chronic kidney disease Plan August 04: No labs done today. Dialyzed yesterday. Check labs tomorrow. Continue per consultants. August 03: Lab reviewed. Due for dialysis today. White blood cell 17,500. August 02: Lab reviewed. Low phosphorus replaced. Hemodialysis ordered for tomorrow. White blood cells over 18,000. August 01: Labs reviewed. Potassium replacement ordered. Remains full code on ventilator via trach. Continue per consultants. July 31: Dialyzed yesterday. No can panel today. Remains full code. Remains on ventilator. Being fed through PEG. Continue per consultants. July 30: Patient due for dialysis today. Labs are reviewed. Remains full code. Status post trach to ventilator. Status post PEG. July 29: Patient dialyzed yesterday. Due for dialysis tomorrow. Remains in ICU. Full code. Status post trach tube to ventilator. Status post PEG. July 28: Due for dialysis today. Labs reviewed. Full code. Patient trached and vented. July 27: Last COVID test negative. COVID test will be repeated tomorrow. Will order dialysis tomorrow. Remains full code. Medication list and labs reviewed. July 26: No labs done today. Dialysis done yesterday. Will check lab tomorrow. Dialysis as needed. July 25: Lab reviewed. Dialysis today. Discussed with RN. July 24: Lab reviewed. Do dialysis tomorrow. Discussed with RN. July 23: Lab reviewed. Dialyzed yesterday. Discussed with RN. Remains full code. Next dialysis July 25. Will check labs tomorrow. July 22: Labs reviewed. Due for dialysis today. Discussed with RN. Watch borderline low blood pressure. Discussed with dialysis nurse. July 21: Today's lab reviewed. Will arrange for dialysis tomorrow. Discussed with RN. Aim to keep the blood pressure above 100 systolic. Continue per consultants. July 20: Patient was dialyzed yesterday. Could not ultrafiltrate much due to low blood pressure. Discussed with SHANIQUE Dick today. No labs drawn today. Continue per consultants. July 19: Due for dialysis today. Discussed with SHANIQUE Dick. Continue per consultants. July 18: Dialyzed July 16. Will order dialysis tomorrow July 19. Continues to be on ventilator through trach. No labs done today. Continue per consultants. July 17: Dialyzed yesterday. Stable from renal standpoint of view. Remains full code. Status post trach on vent. Status post PEG. Continue per consultants. July 16: Dialysis today. Will resume Midodrin to prevent hypotension. Patient remains full code. July 15: Dialyzed yesterday, due for dialysis tomorrow. Labs and medication list reviewed. Continue per consultants. Patient remains full code. COVID-19 detected again. July 14: Patient currently on dialysis. This is continuation of dialysis from yesterday as yesterday's dialysis was cut short due to catheter malfunction. Labs and medication reviewed. Continue per consultants. July 13: Patient currently on hemodialysis. The dialysis catheter which is a intrajugular Kamlesh has poor flow. Will try TPA. Continue per consultants. July 12: Due for PEG today. Due for dialysis tomorrow. Continue per consultants. Discussed with RN. July 11: Plan for dialysis today. Discussed with RN. Data reviewed. July 10: Plan for dialysis tomorrow July 11. Waiting for consent to proceed with PEG. Continue per consultants. Medication reviewed. Labs reviewed. Discussed with RN. July 09: Dialyzed yesterday. Labs reviewed. Medication reviewed. Next hemodialysis July 11. July 08: Patient has tracheostomy now. Connected to ventilator. Due for dialysis today. Continue per consultants. Discussed with SHANIQUE Romero. July 07: Patient is due for tracheostomy today. Patient was last dialyzed July 05. Will order dialysis for tomorrow. July 06: Patient is intubated on ventilator however the plan is to extubate today. Patient was dialysis yesterday July 05. The dialysis time was cut short due to patient's respiratory distress. Only 1 L was removed during dialysis yesterday. Today's lab reviewed. Continue per consultants. Will arrange for dialysis as needed. July 05: Patient due for dialysis today. Remains intubated. Will schedule permacath placement in a.m. blood cultures on July 04 are negative. July 04: Patient was dialyzed yesterday. Due for dialysis tomorrow. Continues to be intubated. After tomorrow's dialysis will order a permacath. July 03: Dialysis is about to be started now Continues to be intubated Will plan to remove the femoral dialysis catheter and exchanged for a new temporary catheter per ID recommendation We will check surveillance blood culture tomorrow July 02: Patient was dialyzed yesterday and due for dialysis tomorrow Stable from renal standpoint W on dialysis Continue per consultants, weaning....... etc. July 01: Dialysis today Other status unchanged June 30: Due for dialysis tomorrow Remains intubated on ventilator Labs and medication reviewed Discussed with RN Stable from renal standpoint of view June 29: Dialyzed yesterday Due for dialysis tomorrow Stable from renal standpoint to view Keeps failing weaning process June 28: Patient due for dialysis today Stable from renal standpoint to view Continue per consultants June 27: Labs reviewed Due due for dialysis June 28 Discussed with SHANIQUE Silverman per consultants Remains intubated on ventilator June 26 Labs reviewed Dialyzed yesterday Started on weaning today Continue to monitor renal parameters June 25: On dialysis now Potassium supplement implemented Continue per consultants Next dialysis June 27June 15: Status unchanged Dialyzed yesterday will dialyze again tomorrow Potassium supplements given Discussed with RN June 14: Due dialysis today Status: Remains intubated on ventilator June 13: Status unchanged Dialyzed yesterday and duefordialysistomorrow Serum sodium stable today June 21 Remains intubated on ventilator Due dialysis today Emphasized high sodium bath for dialysis June 20: Remains intubated on ventilator Dialyzed June 19 next dialysis June 21 Serum sodium 128, will give 250 cc 3% saline Remains full code Discussed with RN Iron panel ordered June 19: Discussed with RN. Patient due for dialysis today. Continue pulmonary support. Remains full code. June 18: Patient dialyzed yesterday June 17 Serum sodium improved but still low Arrange for dialysis tomorrow June 19 Continue per consultants June 17: Due for dialysis today Today's lab reviewed, low serum sodium noted, Emphasized on high sodium bath to dialysis nurse Discussed with SHANIQUE Yuen June 7: Dialyzed yesterday Remains intubated Labs reviewed, serum sodium 131 Plan to dialyze tomorrow June 17 with high sodium bath Discussed with SHANIQUE Yuen June 6: Due for dialysis today Labs reviewed Discussed with RN Transfuse 1 unit of packed RBCs today for low hemoglobin of 7.1 June 5: Blood pressure well maintained Receive dialysis June 13 next hemodialysis June 15June 4: Discussed with RN in ICU Patient did not receive proper dialysis yesterday due to dialysis catheter malfunction Catheter to be adjusted today and dialyzed to be resumed today Continue per consultants Positive for COVID 28 June 2: Patient now intubated on mechanical ventilation Discussed with RN Alpa, today June 12 Patient received dialysis yesterday June 10 next hemodialysis June 12 Blood pressure better maintained Today's labs reviewed Continue per consultants Previously patient received dialysis last evening June 05, next dialysis June 07 which was incomplete due to patient's hypotension Will start on midodrine for blood pressure support. Meanwhile continue other pressors as needed Previously Patient is doing poorly, septic, white blood cells are rising, Hypotension somewhat improved We will keep n.p.o. , NG tube for medications, and change medication to IV as needed Patient remains full code Monitor vancomycin level Previously: Patient pulled out his femoral catheter yesterday June 03 which was reinserted by Dr. Mast Patient scheduled for dialysis again June 04, which again was not done due to dialysis nurse citing catheter malfunction Meanwhile continue management per ID, pulmonary , and psych. Meanwhile white blood cell count is rising. Patient blood pressure borderline low. Will check ABG Previously May 31 : I believe patient need dialysis treatment He however needs to competency assessment if can make decisions or not I will communicate with Dr. Mulligan Previously: Per pulmonary and ID advice Adjust blood pressure medication Renal diet Anemia work-up 2D echocardiogram refused Kidney ultrasound refused Jules catheter Urine studies Per orders Subjective ROS Limited/Unobtainable: Yes Objective Objective Last 24 Hour Vital Signs Date Time Temp Pulse Resp B/P (MAP) Pulse Ox O2 Delivery O2 Flow Rate FiO2 08/05/19 08:00 98.4 100 28 139/83 (101) 100 08/05/19 08:00 98 08/05/19 08:00 Mechanical Ventilator 08/05/19 08:00 30 08/05/19 07:12 101 26 30 08/05/19 06:30 88 26 08/05/19 04:00 30 08/05/19 04:00 Mechanical Ventilator 08/05/19 04:00 95 08/05/19 04:00 98.9 97 28 137/84 (101) 100 08/05/19 02:43 104 26 100 Mechanical Ventilator 30 106 26 30 08/05/19 00:00 95 08/05/19 00:00 30 08/05/19 00:00 Mechanical Ventilator 08/05/19 00:00 99.6 91 26 123/81 (95) 100 08/04/19 23:08 100.2 08/04/19 22:46 103 26 100 Mechanical Ventilator 30 106 26 30 08/04/19 21:48 100.5 110 18 114/82 (93) 100 08/04/19 21:00 109 0 117/68 (84) 100 08/04/19 20:00 30 08/04/19 20:00 Mechanical Ventilator 08/04/19 20:00 102 08/04/19 20:00 100.2 106 18 122/71 (88) 100 08/04/19 19:54 106 26 100 Mechanical Ventilator 30 106 26 30 08/04/19 19:00 111 115/74 (88) 100 08/04/19 18:00 109 18 118/71 (87) 100 08/04/19 17:00 104 20 121/62 (81) 100 08/04/19 16:15 137/88 08/04/19 16:00 98.0 107 22 137/88 (104) 100 08/04/19 16:00 30 08/04/19 16:00 Mechanical Ventilator 08/04/19 16:00 104 08/04/19 15:28 110 30 30 08/04/19 15:00 93 16 123/79 (94) 100 08/04/19 14:00 100 17 126/85 (99) 100 08/04/19 13:00 95 18 135/77 (96) 100 08/04/19 12:00 97.6 94 16 124/70 (88) 100 08/04/19 12:00 30 08/04/19 12:00 Mechanical Ventilator 08/04/19 12:00 96 08/04/19 11:14 99 26 100 Mechanical Ventilator 30 98 26 30 08/04/19 11:00 97 16 124/74 (91) 100 Intake and Output 08/04/19 08/05/19 19:00 07:00 Intake Total 485 ml 620 ml Output Total 1000 ml 300 ml Balance -515 ml 320 ml Free Water 80 ml 80 ml Tube Feeding 405 ml 540 ml Output Urine Total 0 ml 0 ml Stool Total 300 ml Hemodialysis UF 1000 ml Laboratory Tests 08/05/19 03:15: Random Vancomycin Level 18.8 Height (Feet): 6 Height (Inches): 1.00 Weight (Pounds): 173 Objective No change Mic Cole MD Aug 05, 2019 10:05
--- NOTE | 2019-08-05 10:24 | Pulmonolgy Critical Care Note ---
Critical Care - Asmt/Plan Assessment/Plan: Impression: COVID-19 virus infection Pneumonia Respiratory failure on ventilator, wean as tolerated once off pressors CKD - on HD Hypotension on pressors previously Cardiomegaly Leukocytosis Elevated AST COPD Chronic Kidney Disease - HD H/o Hypertension Worsening anemia sepsis Plan: trach care Antibiotics per ID HD per renal monitor vitals AC - weaning trials as able; was on CPAP 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 if needed; monitor nebulization Monitor lab data and discuss Hemodialysis per Renal impression, plan, and exam edited and reviewed in detail care discussed with vp - Objective Last 24 Hour Vital Signs Date Time Temp Pulse Resp B/P (MAP) Pulse Ox O2 Delivery O2 Flow Rate FiO2 08/05/19 08:00 98.4 100 28 139/83 (101) 100 08/05/19 08:00 98 08/05/19 08:00 Mechanical Ventilator 08/05/19 08:00 30 08/05/19 07:12 101 26 30 08/05/19 06:30 88 26 08/05/19 04:00 30 08/05/19 04:00 Mechanical Ventilator 08/05/19 04:00 95 08/05/19 04:00 98.9 97 28 137/84 (101) 100 08/05/19 02:43 104 26 100 Mechanical Ventilator 30 106 26 30 08/05/19 00:00 95 08/05/19 00:00 30 08/05/19 00:00 Mechanical Ventilator 08/05/19 00:00 99.6 91 26 123/81 (95) 100 08/04/19 23:08 100.2 08/04/19 22:46 103 26 100 Mechanical Ventilator 30 106 26 30 08/04/19 21:48 100.5 110 18 114/82 (93) 100 08/04/19 21:00 109 0 117/68 (84) 100 08/04/19 20:00 30 08/04/19 20:00 Mechanical Ventilator 08/04/19 20:00 102 08/04/19 20:00 100.2 106 18 122/71 (88) 100 08/04/19 19:54 106 26 100 Mechanical Ventilator 30 106 26 30 08/04/19 19:00 111 115/74 (88) 100 08/04/19 18:00 109 18 118/71 (87) 100 08/04/19 17:00 104 20 121/62 (81) 100 08/04/19 16:15 137/88 08/04/19 16:00 98.0 107 22 137/88 (104) 100 08/04/19 16:00 30 08/04/19 16:00 Mechanical Ventilator 08/04/19 16:00 104 08/04/19 15:28 110 30 30 08/04/19 15:00 93 16 123/79 (94) 100 08/04/19 14:00 100 17 126/85 (99) 100 08/04/19 13:00 95 18 135/77 (96) 100 08/04/19 12:00 97.6 94 16 124/70 (88) 100 08/04/19 12:00 30 08/04/19 12:00 Mechanical Ventilator 08/04/19 12:00 96 08/04/19 11:14 99 26 100 Mechanical Ventilator 30 98 26 30 08/04/19 11:00 97 16 124/74 (91) 100 Objective: WDWN NAD trach reduced breath sounds bilaterally without rhonchi or wheeze [id number] without MRG NABS nontender no HSM no CC mild edema reduced LOC Accucheck: 159 Critical Care - Subjective ROS Limited/Unobtainable: Yes Condition: critical EKG Rhythm: Sinus Rhythm FI02: 30 Vent Support Breath Rate: 26 Vent Support Mode: AC Vent Tidal Volume: 500 Sputum Amount: Small PEEP: 5.0 PIP: 33 Tube Feeding Amount: 45 I&O: Intake and Output 08/04/19 08/05/19 19:00 07:00 Intake Total 485 ml 620 ml Output Total 1000 ml 300 ml Balance -515 ml 320 ml Free Water 80 ml 80 ml Tube Feeding 405 ml 540 ml Output Urine Total 0 ml 0 ml Stool Total 300 ml Hemodialysis UF 1000 ml ET-Tube: 7.5 ET Position: 24 Elliot Tineo MD Aug 05, 2019 10:23
--- NOTE | 2019-08-05 10:27 | Cardiac Electrophysiology PN ---
Assessment/Plan Assessment/Plan 1. NSTEMI type 2. Low level and flat due to renal failure. On Aspirin. EF 60%. 2. S/P Septic shock. On Midodrine 10 tid and Abx 3. ESRD, on HD per Dr. Cole. S/P PermCath placement by IR 4. Resp failure due to COVID-19 positive pneumonia. On the Vent with 30% Fio2. S/P Tracheostomy 07/08/19. 5. Dysphagia, S/P PEG 07/13/19 6. COPD. 7. Anemia. JHONY RN Subjective Subjective In ICU, on the vent via trach. Off pressors. Covid positive x 10. S/P PermCath placement by IR. Had HD 1 liter yesterday Objective Last 24 Hour Vital Signs Date Time Temp Pulse Resp B/P (MAP) Pulse Ox O2 Delivery O2 Flow Rate FiO2 08/05/19 08:00 98.4 100 28 139/83 (101) 100 08/05/19 08:00 98 08/05/19 08:00 Mechanical Ventilator 08/05/19 08:00 30 08/05/19 07:12 101 26 30 08/05/19 06:30 88 26 08/05/19 04:00 30 08/05/19 04:00 Mechanical Ventilator 08/05/19 04:00 95 08/05/19 04:00 98.9 97 28 137/84 (101) 100 08/05/19 02:43 104 26 100 Mechanical Ventilator 30 106 26 30 08/05/19 00:00 95 08/05/19 00:00 30 08/05/19 00:00 Mechanical Ventilator 08/05/19 00:00 99.6 91 26 123/81 (95) 100 08/04/19 23:08 100.2 08/04/19 22:46 103 26 100 Mechanical Ventilator 30 106 26 30 08/04/19 21:48 100.5 110 18 114/82 (93) 100 08/04/19 21:00 109 0 117/68 (84) 100 08/04/19 20:00 30 08/04/19 20:00 Mechanical Ventilator 08/04/19 20:00 102 08/04/19 20:00 100.2 106 18 122/71 (88) 100 08/04/19 19:54 106 26 100 Mechanical Ventilator 30 106 26 30 08/04/19 19:00 111 115/74 (88) 100 08/04/19 18:00 109 18 118/71 (87) 100 08/04/19 17:00 104 20 121/62 (81) 100 08/04/19 16:15 137/88 08/04/19 16:00 98.0 107 22 137/88 (104) 100 08/04/19 16:00 30 08/04/19 16:00 Mechanical Ventilator 08/04/19 16:00 104 08/04/19 15:28 110 30 30 08/04/19 15:00 93 16 123/79 (94) 100 08/04/19 14:00 100 17 126/85 (99) 100 08/04/19 13:00 95 18 135/77 (96) 100 08/04/19 12:00 97.6 94 16 124/70 (88) 100 08/04/19 12:00 30 08/04/19 12:00 Mechanical Ventilator 08/04/19 12:00 96 08/04/19 11:14 99 26 100 Mechanical Ventilator 30 98 26 30 08/04/19 11:00 97 16 124/74 (91) 100 Intake and Output 08/04/19 08/05/19 19:00 07:00 Intake Total 485 ml 620 ml Output Total 1000 ml 300 ml Balance -515 ml 320 ml Free Water 80 ml 80 ml Tube Feeding 405 ml 540 ml Output Urine Total 0 ml 0 ml Stool Total 300 ml Hemodialysis UF 1000 ml Laboratory Tests Test 08/05/19 03:15 Random Vancomycin Level 18.8 ug/mL Objective HEAD AND NECK: No JVD. Tracheostomy in place. Left IJ HD catheter now in place Right IJ PermCath in place LUNGS: Decreased breath sounds. CARDIOVASCULAR: Regular S1 and S2. Tachycardic. ABDOMEN: Soft. PEG in place EXTREMITIES: No pitting edema. Gio Baker MD Aug 05, 2019 10:26
[2019-08-05] MEDS: Piperacillin/Tazobactam 3.375 GM in NS 110 ML IVPB SCH ×2 (10:53→22:53)
--- NOTE | 2019-08-05 11:00 | Infectious Diseases Prog Note ---
Assessment/Plan Assessment/Plan IMPRESSION: 1. COVID19 pneumonia Positive: 05/27, 05/31 , 06/05, 06/09 ,06/17, 06/19, 06/23, 06/27, 07/03, 07/15, 07/29 Negative: 07/26 2. MRSA carrier. 3. Chronic kidney disease , end-stage renal disease. 4. COPD. 5. Hypertension. 6. Anemia. 7. Hypothyroidism. 8. Hyperlipidemia. 9. Major depression. 10. Leukocytosis 11. Hypotension 12. Hepatitis C 13. Hyperuricemia 14. Diarrhea 15. septic shock 16. Leukocytosis worsening 17. Pneumonia with Staph aureus ( MRSA) 18. Bacteremia with Staph coagulase negative RECOMMENDATIONS: Continue IV Vancomycin & Zosyn Will f/u cultures Subjective ROS Limited/Unobtainable: Yes Constitutional: Reports: other - transferred from ICU to [facility], Low grade fever last night Neurologic: Reports: confusion, other - on restraint Allergies: Coded Allergies: No Known Allergies (Unverified , 05/28/19) Objective Vital Signs Last 24 Hour Vital Signs Date Time Temp Pulse Resp B/P (MAP) Pulse Ox O2 Delivery O2 Flow Rate FiO2 08/05/19 08:00 98.4 100 28 139/83 (101) 100 08/05/19 08:00 98 08/05/19 08:00 Mechanical Ventilator 08/05/19 08:00 30 08/05/19 07:12 101 26 30 08/05/19 06:30 88 26 08/05/19 04:00 30 08/05/19 04:00 Mechanical Ventilator 08/05/19 04:00 95 08/05/19 04:00 98.9 97 28 137/84 (101) 100 08/05/19 02:43 104 26 100 Mechanical Ventilator 30 106 26 30 08/05/19 00:00 95 08/05/19 00:00 30 08/05/19 00:00 Mechanical Ventilator 08/05/19 00:00 99.6 91 26 123/81 (95) 100 08/04/19 23:08 100.2 08/04/19 22:46 103 26 100 Mechanical Ventilator 30 106 26 30 08/04/19 21:48 100.5 110 18 114/82 (93) 100 08/04/19 21:00 109 0 117/68 (84) 100 08/04/19 20:00 30 6/24/20 20:00 Mechanical Ventilator 08/04/19 20:00 102 08/04/19 20:00 100.2 106 18 122/71 (88) 100 08/04/19 19:54 106 26 100 Mechanical Ventilator 30 106 26 30 08/04/19 19:00 111 115/74 (88) 100 08/04/19 18:00 109 18 118/71 (87) 100 08/04/19 17:00 104 20 121/62 (81) 100 08/04/19 16:15 137/88 08/04/19 16:00 98.0 107 22 137/88 (104) 100 08/04/19 16:00 30 08/04/19 16:00 Mechanical Ventilator 08/04/19 16:00 104 08/04/19 15:28 110 30 30 08/04/19 15:00 93 16 123/79 (94) 100 08/04/19 14:00 100 17 126/85 (99) 100 08/04/19 13:00 95 18 135/77 (96) 100 08/04/19 12:00 97.6 94 16 124/70 (88) 100 08/04/19 12:00 30 08/04/19 12:00 Mechanical Ventilator 08/04/19 12:00 96 08/04/19 11:14 99 26 100 Mechanical Ventilator 30 98 26 30 08/04/19 11:00 97 16 124/74 (91) 100 Height (Feet): 6 Height (Inches): 1.00 Weight (Pounds): 173 HEENT: status post trach Respiratory/Chest: other - on ventilator Cardiovascular: tachycardia Abdomen: soft, non tender, other - GT feeding Extremities: no edema Neurologic/Psychiatric: aphasia Laboratory Tests Test 08/05/19 03:15 Random Vancomycin Level 18.8 ug/mL Current Medications Medications (Trade) Dose Ordered Sig/Anthony Route PRN Reason Start Time Stop Time Status Last Admin Dose Admin Acetaminophen (Tylenol) 650 mg Q4H PRN NG For Pain 08/04/19 21:38 09/03/19 21:37 08/04/19 22:38 Chlorhexidine Gluconate (Michelle-Hex 2%) 1 applic DAILY@1999 TOPIC 08/05/19 20:00 09/05/19 19:59 Dextrose (Dextrose 50%) 25 ml Q30M PRN IV Hypoglycemia 08/04/19 22:00 09/18/19 19:29 Dextrose (Dextrose 50%) 50 ml Q30M PRN IV Hypoglycemia 08/04/19 22:00 09/18/19 19:29 Enoxaparin Sodium (Lovenox) 30 mg DAILY SUBQ 08/05/19 09:00 08/27/19 08:59 08/05/19 08:29 Epoetin Aftab (Epoetin Aftab(ESRD on dialysis)) 10,000 unit FRI-FRI-FRI SUBQ 08/06/19 21:00 08/31/19 20:59 Haloperidol Lactate 5 mg/ Dextrose 56 ml @ 224 mls/hr Q6H PRN IVPB Agitation 08/04/19 21:38 09/18/19 21:37 Hydralazine HCl (Apresoline) 10 mg Q4H PRN IV Blood pressure over 160 systol 08/04/19 21:39 11/02/19 21:38 Insulin Aspart (NovoLOG) EVERY 6 HOURS SUBQ 08/05/19 00:00 09/19/19 00:00 08/05/19 05:37 Lorazepam (Ativan 2mg/ml 1ml) 0.5 mg Q2H PRN IV For Anxiety 08/04/19 21:39 08/11/19 21:38 Metoclopramide HCl (Reglan) 5 mg Q8HR IVP 08/05/19 06:00 09/04/19 05:59 08/05/19 05:45 Midodrine (Pro-Amatine) 10 mg Q8HR NG 08/05/19 06:00 11/03/19 05:59 Pantoprazole (Protonix) 40 mg DAILY IVP 08/05/19 09:00 08/26/19 08:59 08/05/19 08:30 Piperacillin Sod/ Tazobactam Sod 3.375 gm/Sodium Chloride 110 ml @ 27.5 mls/hr Q12H IVPB 08/04/19 23:00 08/11/19 10:59 08/05/19 10:53 Vancomycin HCl (Vanco pharmacy to dose) 1 ea DAILY PRN MISC Per rx protocol 08/05/19 09:00 08/19/19 10:44 Vancomycin HCl 750 mg/Sodium Chloride 275 ml @ 183.333 mls/hr ONCE ONCE IVPB 08/05/19 10:00 08/05/19 11:29 08/05/19 09:08 Ted Leyva MD Aug 05, 2019 11:00
[2019-08-05 11:45] VITALS: BP 121/75
--- NOTE | 2019-08-05 12:34 | General Progress Note ---
Assessment/Plan Status: progressing, unchanged, deteriorating Assessment/Plan: 1. Diabetes. 2. Hypertension. 3. Coronary artery disease. 4. COPD. 5. Psychiatric disorder with schizophrenia. 6. History of hepatitis C. 7. HLP. 8. Chronic kidney disease, now with acute renal failure. 9. Anemia. 10. Hypothyroidism. 11. Spinal stenosis. 12. Constipation. 13. GERD. 14. COVID positive HD per nephrology fu labs icu care s/p PEG GTF monitor for residuals Subjective ROS Limited/Unobtainable: No Allergies: Coded Allergies: No Known Allergies (Unverified , 05/28/19) Objective Last 24 Hour Vital Signs Date Time Temp Pulse Resp B/P (MAP) Pulse Ox O2 Delivery O2 Flow Rate FiO2 08/05/19 11:55 Mechanical Ventilator 08/05/19 11:55 30 08/05/19 11:45 97.7 101 26 121/75 (90) 100 08/05/19 11:18 104 26 30 08/05/19 08:00 98.4 100 28 139/83 (101) 100 08/05/19 08:00 98 08/05/19 08:00 Mechanical Ventilator 08/05/19 08:00 30 08/05/19 07:12 101 26 30 08/05/19 06:30 88 26 08/05/19 04:00 30 08/05/19 04:00 Mechanical Ventilator 08/05/19 04:00 95 08/05/19 04:00 98.9 97 28 137/84 (101) 100 08/05/19 02:43 104 26 100 Mechanical Ventilator 30 106 26 30 08/05/19 00:00 95 08/05/19 00:00 30 08/05/19 00:00 Mechanical Ventilator 08/05/19 00:00 99.6 91 26 123/81 (95) 100 08/04/19 23:08 100.2 08/04/19 22:46 103 26 100 Mechanical Ventilator 30 106 26 30 08/04/19 21:48 100.5 110 18 114/82 (93) 100 08/04/19 21:00 109 0 117/68 (84) 100 08/04/19 20:00 30 08/04/19 20:00 Mechanical Ventilator 08/04/19 20:00 102 08/04/19 20:00 100.2 106 18 122/71 (88) 100 08/04/19 19:54 106 26 100 Mechanical Ventilator 30 106 26 30 08/04/19 19:00 111 115/74 (88) 100 08/04/19 18:00 109 18 118/71 (87) 100 08/04/19 17:00 104 20 121/62 (81) 100 08/04/19 16:15 137/88 08/04/19 16:00 98.0 107 22 137/88 (104) 100 08/04/19 16:00 30 08/04/19 16:00 Mechanical Ventilator 08/04/19 16:00 104 08/04/19 15:28 110 30 30 08/04/19 15:00 93 16 123/79 (94) 100 08/04/19 14:00 100 17 126/85 (99) 100 08/04/19 13:00 95 18 135/77 (96) 100 Intake and Output 08/04/19 08/05/19 19:00 07:00 Intake Total 485 ml 620 ml Output Total 1000 ml 300 ml Balance -515 ml 320 ml Free Water 80 ml 80 ml Tube Feeding 405 ml 540 ml Output Urine Total 0 ml 0 ml Stool Total 300 ml Hemodialysis UF 1000 ml Laboratory Tests 08/05/19 03:15: Random Vancomycin Level 18.8 08/05/19 11:37: POC Whole Blood Glucose [Pending] Height (Feet): 6 Height (Inches): 1.00 Weight (Pounds): 173 General Appearance: no apparent distress EENT: normal ENT inspection Neck: supple Cardiovascular: normal rate Respiratory/Chest: decreased breath sounds Abdomen: normal bowel sounds, non tender, soft Extremities: non-tender Marito Ramires MD Aug 05, 2019 12:34
--- NOTE | 2019-08-05 15:16 | Surgery Progress Note ---
Surgery Progress Note Subjective Procedure Performed Left internal jugular temporary hemodialysis catheter removal Additional Comments no acute events exam stable downgraded and comfortable Objective Last 24 Hour Vital Signs Date Time Temp Pulse Resp B/P (MAP) Pulse Ox O2 Delivery O2 Flow Rate FiO2 08/05/19 12:00 103 08/05/19 11:55 Mechanical Ventilator 08/05/19 11:55 30 08/05/19 11:45 97.7 101 26 121/75 (90) 100 08/05/19 11:18 104 26 30 08/05/19 08:00 98.4 100 28 139/83 (101) 100 08/05/19 08:00 98 08/05/19 08:00 Mechanical Ventilator 08/05/19 08:00 30 08/05/19 07:12 101 26 30 08/05/19 06:30 88 26 08/05/19 04:00 30 08/05/19 04:00 Mechanical Ventilator 08/05/19 04:00 95 08/05/19 04:00 98.9 97 28 137/84 (101) 100 08/05/19 02:43 104 26 100 Mechanical Ventilator 30 106 26 30 08/05/19 00:00 95 08/05/19 00:00 30 08/05/19 00:00 Mechanical Ventilator 08/05/19 00:00 99.6 91 26 123/81 (95) 100 08/04/19 23:08 100.2 08/04/19 22:46 103 26 100 Mechanical Ventilator 30 106 26 30 08/04/19 21:48 100.5 110 18 114/82 (93) 100 08/04/19 21:00 109 0 117/68 (84) 100 08/04/19 20:00 30 08/04/19 20:00 Mechanical Ventilator 08/04/19 20:00 102 08/04/19 20:00 100.2 106 18 122/71 (88) 100 08/04/19 19:54 106 26 100 Mechanical Ventilator 30 106 26 30 08/04/19 19:00 111 115/74 (88) 100 08/04/19 18:00 109 18 118/71 (87) 100 08/04/19 17:00 104 20 121/62 (81) 100 08/04/19 16:15 137/88 08/04/19 16:00 98.0 107 22 137/88 (104) 100 08/04/19 16:00 30 08/04/19 16:00 Mechanical Ventilator 08/04/19 16:00 104 08/04/19 15:28 110 30 30 I&O Intake and Output 08/04/19 08/05/19 19:00 07:00 Intake Total 485 ml 620 ml Output Total 1000 ml 300 ml Balance -515 ml 320 ml Free Water 80 ml 80 ml Tube Feeding 405 ml 540 ml Output Urine Total 0 ml 0 ml Stool Total 300 ml Hemodialysis UF 1000 ml Dressing: other Wound: other Drains: other Cardiovascular: RSR Respiratory: decreased breath sounds Abdomen: soft, non-tender, present bowel sounds Extremities: no cyanosis Laboratory Tests Test 08/05/19 03:15 08/05/19 11:37 Random Vancomycin Level 18.8 ug/mL POC Whole Blood Glucose Pending Plan Problems: (1) Suspected COVID-19 virus infection (2) HTN (hypertension) (3) CASSANDRA (acute kidney injury) Assessment & Plan: Needs urgent HD needs access patient okay and consented see note will follow with recs new line placed discussed with team and nephrology HD line functional when checked has TPA now please use appropriately Cathflo used again this flow during dialysis on 430 was low. Will monitor may need line change 5/ plan for HD as per renal may need to take fluid off with HD edema anasarca dressings saturated and changed will monitor cont with HD IJ left line placed for HD given extent of prior line in place. leukocytosis blood cx negative may need to change out line new line okay HD going well Continue HD as tolerated May need pressors for HD as needed (4) Anemia in chronic kidney disease (CKD) (5) Anemia (6) Renal failure (7) Suspected COVID-19 virus infection Assessment & Plan: Pt deconditioned and despite all skin preventions Pt noted to have developed several pressure injuries. . Stable dry eschar noted to clefts of R and L ears. No erythema noted . DTPI noted to L trochanter. Base of injury is maroon in colour with marginal erythema along borders. Partially opened DTPI Sacrum, R and L Buttocks. Base of wound is maroon with two small open wounds L sacrum and L buttocks. Pt has an APM/MOMO Mattress overlay and is being positioned with pillows as per tolerance and within protocols. worsening despite medical efforts will cont to provide therapy Tx.Plan: Apply Cavilon Skin Barrier to both ears Daily and prn. Apply Moisture Barrier Paste to Sacrum,R and L Buttocks. Cover with Optifoam drsgs. Change every 3 days and PRN. Apply Cavilon Skin Barrier to R and L trochanter. Cover each site with Optifoam drsgs.Change every 7 days and PRN. Apply Cavilon Skin Barrier to both heels. Cover each heel with Optifoam drsg. Change every 7 days and prn. Off-load heels with pillow. Reposition at least every 2hours or as tolerated. APM/MOMO Mattress overlay. (8) COVID-19 Assessment & Plan: COVID + c diff negative febrile leukocytosis renal insufficiency see above cont resp care Rx as per ID worsening on vent support now cxr noted on pressors prognosis guarded repeat covid ++ weaning vent and pressors off slowly showing improvement slowly recovering will need trach as unable to wean vent safely called and spoke with country conservatorship. consent obtained s/p trach pending peg worsening on levo max (9) Sepsis Assessment & Plan: worsening leukocytosis febrile on pressors discussed with ID. lines evaluated and clean. he is septic on pressors and needs central access in difficult venous access patient blood cultures negative will monitor temp HD cath out now with permacath left tlc still subclavian needed line c/d/i Yaniv Mast Aug 05, 2019 15:16
[2019-08-05 16:00] VITALS: BP 140/85
[2019-08-05 20:00] VITALS: BP 154/76
[2019-08-05] MEDS: Dyna-Hex 2% Top Sol 2oz TOPIC SCH (20:16)
--- NOTE | 2019-08-05 21:36 | Psych Consult Progress Note ---
Psychiatry Progress Note Psychiatry Progress Note Subjective the pt is awake and has episodes of agitation. Medications Current Medications Medications (Trade) Dose Ordered Sig/Anthony Route PRN Reason Start Time Stop Time Status Last Admin Dose Admin Acetaminophen (Tylenol) 650 mg Q4H PRN NG For Pain 08/04/19 21:38 09/03/19 21:37 08/04/19 22:38 Chlorhexidine Gluconate (Michelle-Hex 2%) 1 applic DAILY@2000 TOPIC 08/05/19 20:00 09/05/19 19:59 08/05/19 20:16 Dextrose (Dextrose 50%) 25 ml Q30M PRN IV Hypoglycemia 08/04/19 22:00 09/18/19 19:29 Dextrose (Dextrose 50%) 50 ml Q30M PRN IV Hypoglycemia 08/04/19 22:00 09/18/19 19:29 Enoxaparin Sodium (Lovenox) 30 mg DAILY SUBQ 08/05/19 09:00 08/27/19 08:59 08/05/19 08:29 Epoetin Aftab (Epoetin Aftab(ESRD on dialysis)) 10,000 unit FRI-FRI-FRI SUBQ 08/06/19 21:00 08/31/19 20:59 Haloperidol Lactate 5 mg/ Dextrose 56 ml @ 224 mls/hr Q6H PRN IVPB Agitation 08/04/19 21:38 09/18/19 21:37 Hydralazine HCl (Apresoline) 10 mg Q4H PRN IV Blood pressure over 160 systol 08/04/19 21:39 11/02/19 21:38 Insulin Aspart (NovoLOG) EVERY 6 HOURS SUBQ 08/05/19 00:00 09/19/19 00:00 08/05/19 17:04 Lorazepam (Ativan 2mg/ml 1ml) 0.5 mg Q2H PRN IV For Anxiety 08/04/19 21:39 08/11/19 21:38 Metoclopramide HCl (Reglan) 5 mg Q8HR IVP 08/05/19 06:00 09/04/19 05:59 08/05/19 13:23 Midodrine (Pro-Amatine) 10 mg Q8HR NG 08/05/19 06:00 11/03/19 05:59 Pantoprazole (Protonix) 40 mg DAILY IVP 08/05/19 09:00 08/26/19 08:59 08/05/19 08:30 Piperacillin Sod/ Tazobactam Sod 3.375 gm/Sodium Chloride 110 ml @ 27.5 mls/hr Q12H IVPB 08/04/19 23:00 08/11/19 10:59 08/05/19 10:53 Vancomycin HCl (Vanco pharmacy to dose) 1 ea DAILY PRN MISC Per rx protocol 08/05/19 09:00 08/19/19 10:44 Neurological/Psychiatric: Reports: anxiety, depressed, emotional problems Allergies: Coded Allergies: No Known Allergies (Unverified , 05/28/19) Objective Data Height (Feet): 6 Height (Inches): 1.00 Weight (Pounds): 173 Appearance: disheveled Behavior Mannerisms: poor eye contact Mental Status Exam - Affect: blunted Speech: clear Mental Status Exam - Thought P: loose association Mental Status Exam - Suicidal: not present Assessment/Plan Status: progressing, unchanged, deteriorating Assessment/Plan: The pt benefits from restraints cont psychotropic meds dw nurse Guicho Pimentel MD Aug 05, 2019 21:36
--- NOTE | 2019-08-05 22:10 | General Progress Note ---
Assessment/Plan Problem List: (1) HTN (hypertension) ICD Codes: I10 - Essential (primary) hypertension SNOMED: 00778979 (2) CASSANDRA (acute kidney injury) ICD Codes: N17.9 - Acute kidney failure, unspecified SNOMED: 8808281, 23276518 (3) Anemia in chronic kidney disease (CKD) ICD Codes: N18.9 - Chronic kidney disease, unspecified; D63.1 - Anemia in chronic kidney disease SNOMED: 466228435 (4) Renal failure ICD Codes: N19 - Unspecified kidney failure SNOMED: 15557150 (5) Respiratory failure requiring intubation ICD Codes: J96.90 - Respiratory failure, unspecified, unspecified whether with hypoxia or hypercapnia; A41.89 - Other specified sepsis SNOMED: 279762501, 498305931 (6) Pneumonia due to COVID-19 virus ICD Codes: U07.1 - COVID-19; J12.89 - Other viral pneumonia SNOMED: 287243429, 644156787 (7) Sepsis due to severe acute respiratory syndrome coronavirus 2 (SARS-CoV-2) ICD Codes: U07.1 - COVID-19; A41.89 - Other specified sepsis SNOMED: 285794877, 948771601 Status: progressing, unchanged, deteriorating Assessment/Plan: no pressor intermittent fever got diaylsis today weak persistent leukocyosis sepsis needs ltac placement afebrile trach/pege lyts ok Subjective ROS Limited/Unobtainable: Yes Allergies: Coded Allergies: No Known Allergies (Unverified , 05/28/19) Objective Last 24 Hour Vital Signs Date Time Temp Pulse Resp B/P (MAP) Pulse Ox O2 Delivery O2 Flow Rate FiO2 08/05/19 20:00 Mechanical Ventilator 08/05/19 20:00 98.1 109 26 154/76 (102) 100 08/05/19 20:00 30 08/05/19 19:29 106 08/05/19 19:17 100 26 30 08/05/19 16:00 109 08/05/19 16:00 98.4 108 26 140/85 (103) 100 08/05/19 16:00 30 08/05/19 16:00 Mechanical Ventilator 08/05/19 15:30 110 26 30 08/05/19 12:00 103 08/05/19 11:55 Mechanical Ventilator 08/05/19 11:55 30 08/05/19 11:45 97.7 101 26 121/75 (90) 100 08/05/19 11:18 104 26 30 08/05/19 08:00 98.4 100 28 139/83 (101) 100 08/05/19 08:00 98 08/05/19 08:00 Mechanical Ventilator 08/05/19 08:00 30 08/05/19 07:12 101 26 30 08/05/19 06:30 88 26 08/05/19 04:00 30 08/05/19 04:00 Mechanical Ventilator 08/05/19 04:00 95 08/05/19 04:00 98.9 97 28 137/84 (101) 100 08/05/19 02:43 104 26 100 Mechanical Ventilator 30 106 26 30 08/05/19 00:00 95 08/05/19 00:00 30 08/05/19 00:00 Mechanical Ventilator 08/05/19 00:00 99.6 91 26 123/81 (95) 100 08/04/19 23:08 100.2 08/04/19 22:46 103 26 100 Mechanical Ventilator 30 106 26 30 Intake and Output 08/04/19 08/05/19 19:00 07:00 Intake Total 485 ml 620 ml Output Total 1000 ml 300 ml Balance -515 ml 320 ml Free Water 80 ml 80 ml Tube Feeding 405 ml 540 ml Output Urine Total 0 ml 0 ml Stool Total 300 ml Hemodialysis UF 1000 ml Laboratory Tests 08/05/19 03:15: Random Vancomycin Level 18.8 08/05/19 11:37: POC Whole Blood Glucose [Pending] 08/05/19 16:38: POC Whole Blood Glucose [Pending] Height (Feet): 6 Height (Inches): 1.00 Weight (Pounds): 173 Karishma Mulligan MD Aug 05, 2019 22:10
[2019-08-06] VITALS: BP 142/92
[2019-08-06 04:00] VITALS: BP 157/99
[2019-08-06 05:07] LABS: BASOPHILS % (AUTO) 0.9 % (0.0-2.0); EOSINOPHILS % (AUTO) 4.5 % (0.0-3.0); HEMOGLOBIN 9.9 G/DL (14.2-18.0); LYMPHOCYTES % (AUTO) 13.5 % (20.0-45.0); MEAN CORPUSCULAR VOLUME 98 FL (80-99); MONOCYTES % (AUTO) 5.6 % (1.0-10.0); NEUTROPHILS % (AUTO) 75.6 % (45.0-75.0); PLATELET COUNT 372 K/UL (150-450); RED BLOOD COUNT 3.47 M/UL (4.70-6.10); RED CELL DISTRIBUTION WIDTH 18.2 % (11.6-14.8); WHITE BLOOD COUNT 11.6 K/UL (4.8-10.8)
[2019-08-06] MEDS: Metoclopramide 10mg/2ml Inj IVP SCH ×3 (05:27→22:46)
[2019-08-06] MEDS: Midodrine 10mg tab NG SCH (05:30)
[2019-08-06 05:36] LABS: ALANINE AMINOTRANSFERASE 12 U/L (12-78); ALBUMIN 2.8 G/DL (3.4-5.0); ALBUMIN/GLOBULIN RATIO 0.5 (1.0-2.7); ALKALINE PHOSPHATASE 130 U/L (46-116); ANION GAP 14 mmol/L (5-15); ASPARTATE AMINO TRANSFERASE 23 U/L (15-37); BILIRUBIN,TOTAL 0.4 MG/DL (0.2-1.0); BLOOD UREA NITROGEN 64 mg/dL (7-18); CALCIUM 9.3 MG/DL (8.5-10.1); CARBON DIOXIDE 26 MMOL/L (21-32); CHLORIDE 105 MMOL/L (98-107); CREATININE 7.9 MG/DL (0.55-1.30); PHOSPHORUS 2.5 MG/DL (2.5-4.9); POTASSIUM 3.3 MMOL/L (3.5-5.1); SODIUM 145 MMOL/L (136-145)
[2019-08-06] MEDS: NovoLOG Insulin Flexpen SUBQ SCH ×4 (05:38→23:33)
[2019-08-06 08:00] VITALS: BP 154/95
[2019-08-06] MEDS: Pantoprazole Inj IVP SCH (09:35)
[2019-08-06] MEDS: Enoxaparin 30mg Inj SUBQ SCH (09:36)
[2019-08-06] MEDS: Piperacillin/Tazobactam 3.375 GM in NS 110 ML IVPB SCH ×2 (11:01→22:46)
--- NOTE | 2019-08-06 11:02 | General Progress Note ---
Assessment/Plan Status: progressing, unchanged, deteriorating Assessment/Plan: 1. Diabetes. 2. Hypertension. 3. Coronary artery disease. 4. COPD. 5. Psychiatric disorder with schizophrenia. 6. History of hepatitis C. 7. HLP. 8. Chronic kidney disease, now with acute renal failure. 9. Anemia. 10. Hypothyroidism. 11. Spinal stenosis. 12. Constipation. 13. GERD. 14. COVID positive HD per nephrology fu labs icu care s/p PEG GTF monitor for residuals Subjective ROS Limited/Unobtainable: No Allergies: Coded Allergies: No Known Allergies (Unverified , 05/28/19) Objective Last 24 Hour Vital Signs Date Time Temp Pulse Resp B/P (MAP) Pulse Ox O2 Delivery O2 Flow Rate FiO2 08/06/19 08:00 Mechanical Ventilator 08/06/19 08:00 97.9 104 26 154/95 (114) 100 08/06/19 08:00 30 08/06/19 07:48 108 08/06/19 07:16 97 26 30 08/06/19 06:30 88 26 08/06/19 04:00 30 08/06/19 04:00 97.9 103 26 157/99 (118) 100 08/06/19 04:00 Mechanical Ventilator 08/06/19 03:46 98 08/06/19 03:21 99 26 30 08/06/19 00:00 Mechanical Ventilator 08/06/19 00:00 98.1 105 26 142/92 (109) 100 08/05/19 23:41 110 08/05/19 23:15 101 26 30 08/05/19 20:00 Mechanical Ventilator 08/05/19 20:00 98.1 109 26 154/76 (102) 100 08/05/19 20:00 30 08/05/19 19:29 106 08/05/19 19:17 100 26 30 08/05/19 16:00 109 08/05/19 16:00 98.4 108 26 140/85 (103) 100 08/05/19 16:00 30 08/05/19 16:00 Mechanical Ventilator 08/05/19 15:30 110 26 30 08/05/19 12:00 103 08/05/19 11:55 Mechanical Ventilator 08/05/19 11:55 30 08/05/19 11:45 97.7 101 26 121/75 (90) 100 08/05/19 11:18 104 26 30 Intake and Output 08/05/19 08/06/19 19:00 07:00 Intake Total 805.03 ml 605.0 ml Output Total 200 ml 400 ml Balance 605.03 ml 205.0 ml Free Water 100 ml IV Total 110.03 ml 110.0 ml Tube Feeding 495 ml 495 ml Blood Product 100 ml Output Urine Total 0 ml 400 ml Stool Total 200 ml Laboratory Tests 08/05/19 11:37: POC Whole Blood Glucose [Pending] 08/05/19 16:38: POC Whole Blood Glucose [Pending] 08/05/19 23:07: POC Whole Blood Glucose 175H 08/06/19 03:50: White Blood Count 11.6H, Red Blood Count 3.47L, Hemoglobin 9.9L, Hematocrit 34.0L, Mean Corpuscular Volume 98, Mean Corpuscular Hemoglobin 28.4, Mean Corpuscular Hemoglobin Concent 29.0L, Red Cell Distribution Width 18.2H, Platelet Count 372, Mean Platelet Volume 7.2, Neutrophils (%) (Auto) 75.6H, Lymphocytes (%) (Auto) 13.5L, Monocytes (%) (Auto) 5.6, Eosinophils (%) (Auto) 4.5H, Basophils (%) (Auto) 0.9, Sodium Level 145, Potassium Level 3.3L, Chloride Level 105, Carbon Dioxide Level 26, Anion Gap 14, Blood Urea Nitrogen 64H, Creatinine 7.9H, Estimat Glomerular Filtration Rate 6.9, Glucose Level 190H , Calcium Level 9.3, Phosphorus Level 2.5, Magnesium Level 2.5H, Total Bilirubin 0.4, Aspartate Amino Transf (AST/SGOT) 23, Alanine Aminotransferase ( ALT/SGPT) 12, Alkaline Phosphatase 130H, C-Reactive Protein, Quantitative 7.0H, Total Protein 8.4H, Albumin 2.8L, Globulin 5.6, Albumin/Globulin Ratio 0.5L 08/06/19 05:25: POC Whole Blood Glucose 177H Height (Feet): 6 Height (Inches): 1.00 Weight (Pounds): 172 General Appearance: no apparent distress EENT: normal ENT inspection Neck: supple Cardiovascular: normal rate Respiratory/Chest: decreased breath sounds Abdomen: normal bowel sounds, non tender, soft Extremities: non-tender Vosoghi,Marito MD Aug 06, 2019 11:01
--- NOTE | 2019-08-06 11:08 | Hematology/Onc Progress Note ---
Assessment/Plan Assessment/Plan Assessment and Recs: # Anemia of chronic disease, likely related ot underlying kidney disease has COIVD19++++++ --> hgb trend 9-->8-->7.3-->7.9-->6.8->9.5-->10->8.3-->7.7-->7.1-->8.9->8.8->7.7 -->8.1 ->7.9-->7.7 -->8.2-->8.1 -->7.9-->8.5 -->9->9.2-->9.5-->10.7 -->9.8--> 10.2-->11.8 -->11.9-->8.8 ->9.4->9-->8.3 -->8.5-->9.4->9.8-->9-->8.3 --> transfuse as needed, hgb goal >7 --> no evidence of hemolysis --> peripheral smear has been reviewed --> epogen started 3 x a week ==>> transfuse 06/08, 06/15 # Leukocytosis likely related to suspected COVID-19 virus infection --> completed plaquenil --> trend smear as needed --> wbc trend: 4-->11-->14.5-->21-->26-->21->24--.28-->23-->19-->16.2-->21--> 11.2 -->12.5-->12.3-->12.4-->18.5-->18.5-->17->13-->18.2-->22.2-->25-->17.4-->17 -->14.2-->14-->16-->15.5-->9->17 --> pulm is aware --> on abx cefepime/vanc->zosyn/vanc-->dom/vanc-->dom-->levaquin/cefepime--> vanc --> pressors as needed --> 06/27 covid 19++ --> pressors as needed in icu # Thrombocytopenia/Lymphopenia --> likely related to covid19 --> plt 129k-->186k-->251-->285-->384 -->430-->539-->515-->447-->451-->404-->544 -->244 # Respiratory failure with covid19+ --> s/p vent/trach --> weaning # Possible Pneumonia --> abx completed --> 07/13 cxr: Improved right lung infiltrates. # Cardiomegaly # Transaminitis with Elevated AST # COPD # Chronic Kidney Disease --> per renal hd --> s/p right femoral cath 07/02 # Hypertension # peg # Dvt ppx lovenox Appreciate consultation and dw Rn Subjective Constitutional: Denies: no symptoms, chills, fever, malaise, weakness, other HEENT: Denies: no symptoms, eye pain, blurred vision, tearing, double vision, ear pain, ear discharge, nose pain, nose congestion, throat pain, throat swelling, mouth pain, mouth swelling, other Cardiovascular: Denies: no symptoms, chest pain, edema, irregular heart rate, lightheadedness, palpitations, syncope, other Respiratory: Denies: no symptoms, cough, shortness of breath, SOB with excertion, SOB at rest, sputum, wheezing, other Gastrointestinal/Abdominal: Denies: no symptoms, abdomen distended, abdominal pain, black stools, tarry stools, blood in stool, constipated, diarrhea, difficulty swallowing, nausea, poor appetite, poor fluid intake, rectal bleeding , vomiting, other Genitourinary: Denies: no symptoms, burning, discharge, frequency, flank pain, hematuria, incontinence, pain, urgency, other Neurologic/Psychiatric: Denies: no symptoms, anxiety, depressed, emotional problems, headache, numbness, paresthesia, pre-existing deficit, seizure, tingling, tremors, weakness, other Allergies: Coded Allergies: No Known Allergies (Unverified , 05/28/19) Subjective 06/01 nv, extremely agitated, not allowing labs draws, no night sweats, cbc ordered 06/02 confused, restraints, on abx and plaquenil, hgb 7.9, nrb 15 L 06/03 is with nonrebreather, but not compliant, remains confused 06/05 no bleeding, labs noted, no major bleeding, otherwise comfortable 06/06 labs reviewed, no bleeding, meds noted, no night sweats, on levo and nonrebreather 06/07 labs noted, no bleeding, meds reviewed, no bleeding, wbc higher 06/08 to get 2 units prbc, no night sweats, meds reviewed 06/09 is on cefepime and vanc, labs noted, ernesto Rn, no bleeding 06/10 no major changes, labs reviewed, wbc 28k, on abx, cefepime 06/12 remains in icu, labs noted, no night sweats or bleeding 06/13 sluggish pupils, remains agitated, per psych, no bleding, on vent, wbc sitll high 06/14 still confused, remains on vent, with ng, running nepro, on pressors 06/15 icu, febrile, non verbal, hgb 7.1, blood pending, completed plaq 06/16 remains in the icu, nonverbal, plan for hd tomorrow, ernesto rn 06/17 in icu, on pressor, nonverbal, on abx, no bleeding 06/19 no bleeding, nonverbal in icu, hgb is 7.7 06/20 on zosyn, tube feeds, vent, labs noted, in icu, nv 06/21 gettng hd as per renal, in icu, nv, no bleeding, tfs 06/22 icu, cxr with slight improvement, cooling blanket, weaning today 06/23 wewaning, in icu, on vent, abx, and pressors as needed, labs noted 06/24 failed weaning, off abx, completed plaquenil, hgb 8.1 06/26 icu, weaning for this am, afebrile, hgb 8 06/27 in icu, remains comotose, weaning started on peep, no night sweats 06/28 weaning today, off abx, restraints, no distress, h/h stable 06/29 covid 19+, failed weaning, no blood transfusion needed 06/30 icu, on vent, labs reviewed, no distress 07/01 in icu, may need trach, remains on hd per renal, labs noted 07/02 s/p right fem cath, failed wean, no new orders, h/h stable 07/03 is somewhat more responsive, on abx, no bleeding, weaning and HD today 07/04 hd as per renal, weaning off vent, no bleeding today 07/05 obtunded, no bleding overnight, with hd for tomorrow noted, vanc 07/08 no events, remains with trach/vent, ernesto Rn, no bleeding, cbc is noted 07/09 no overnight events, peg for friday pending consent 07/10 off pressors, vent, restraints, labs reviewed 07/11 no acute events is on pressors, intubated, agitated still 07/12 is resting comfortably, no bleeding, emds reviewed and noted 07/13 icu, no events, trach, cxr reviewed, 07/14 is onv ent, tachypneic and tachycardic, labs noted 07/15 remains confused, intubated, ernesto Rn, no bleeding 07/17 icu, cxr improving infiltrates, levo gtt, airborne/contact isolation 07/18 is on broad spectrum abx, is on levaquin and cefepime, wbc 16 agitated 07/19 icu, levo gtt, cxr unchanged, tachy, hd thursday 07/20 sedated, safety restraints, labs reviewed 07/21 hd was done yesterday, lower pressor requirements, wbc is worse, on abx 07/22 icu, meds and labs reviewed, vent, no distress 07/24 on vent, in icu, labs noted, remains agitated, and confused 07/25 remains obtunded, on vent, on pressor, hgb 9, wbc elev 07/26 icu, levo gtt, vent, iv abx, nonverbal 07/27 failed weaning, labs reviewed, repeat covid swab pending 07/28 labs are noted, no bleeding, on vent/trach gtube feeds ernesto rn 07/29 iuc, restraints, no new changes, vent 07/31 is asleep, comfortable, no events, labs reviewed, restraints+ 08/01 no events, agitated, no bleeding, meds noted, on gtube feeds 08/02 remains on vent, no bleeding, wbc higher 19, hgb 9, on abx 08/03 labs noted, on vent, no bleeding, wbc 17, hgb better 08/04 labs reviewed, no bleeding, does not require prbc, on vent 08/05 more alert, is on trach, vent, no major events, no bleeding, peg+ Objective Objective Current Medications Medications (Trade) Dose Ordered Sig/Anthony Route PRN Reason Start Time Stop Time Status Last Admin Dose Admin Acetaminophen (Tylenol) 650 mg Q4H PRN NG For Pain 08/04/19 21:38 09/03/19 21:37 08/04/19 22:38 Chlorhexidine Gluconate (Michelle-Hex 2%) 1 applic DAILY@2000 TOPIC 08/05/19 20:00 09/05/19 19:59 08/05/19 20:16 Dextrose (Dextrose 50%) 25 ml Q30M PRN IV Hypoglycemia 08/04/19 22:00 09/18/19 19:29 Dextrose (Dextrose 50%) 50 ml Q30M PRN IV Hypoglycemia 08/04/19 22:00 09/18/19 19:29 Enoxaparin Sodium (Lovenox) 30 mg DAILY SUBQ 08/05/19 09:00 08/27/19 08:59 08/06/19 09:36 Epoetin Aftab (Epoetin Aftab(ESRD on dialysis)) 10,000 unit FRI-FRI-FRI SUBQ 08/06/19 21:00 08/31/19 20:59 Haloperidol Lactate 5 mg/ Dextrose 56 ml @ 224 mls/hr Q6H PRN IVPB Agitation 08/04/19 21:38 09/18/19 21:37 Hydralazine HCl (Apresoline) 10 mg Q4H PRN IV Blood pressure over 160 systol 08/04/19 21:39 11/02/19 21:38 Insulin Aspart (NovoLOG) EVERY 6 HOURS SUBQ 08/05/19 00:00 09/19/19 00:00 08/06/19 05:38 Lorazepam (Ativan 2mg/ml 1ml) 0.5 mg Q2H PRN IV For Anxiety 08/04/19 21:39 08/11/19 21:38 Metoclopramide HCl (Reglan) 5 mg Q8HR IVP 08/05/19 06:00 09/04/19 05:59 08/06/19 05:27 Midodrine (Pro-Amatine) 10 mg Q8HR NG 08/05/19 06:00 11/03/19 05:59 Pantoprazole (Protonix) 40 mg DAILY IVP 08/05/19 09:00 08/26/19 08:59 08/06/19 09:35 Piperacillin Sod/ Tazobactam Sod 3.375 gm/Sodium Chloride 110 ml @ 27.5 mls/hr Q12H IVPB 08/04/19 23:00 08/11/19 10:59 08/06/19 11:01 Vancomycin HCl (Vanco pharmacy to dose) 1 ea DAILY PRN MISC Per rx protocol 08/05/19 09:00 08/19/19 10:44 Last 24 Hour Vital Signs Date Time Temp Pulse Resp B/P (MAP) Pulse Ox O2 Delivery O2 Flow Rate FiO2 08/06/19 08:00 Mechanical Ventilator 08/06/19 08:00 97.9 104 26 154/95 (114) 100 08/06/19 08:00 30 08/06/19 07:48 108 08/06/19 07:16 97 26 30 08/06/19 06:30 88 26 08/06/19 04:00 30 08/06/19 04:00 97.9 103 26 157/99 (118) 100 08/06/19 04:00 Mechanical Ventilator 08/06/19 03:46 98 08/06/19 03:21 99 26 30 08/06/19 00:00 Mechanical Ventilator 08/06/19 00:00 98.1 105 26 142/92 (109) 100 08/05/19 23:41 110 08/05/19 23:15 101 26 30 08/05/19 20:00 Mechanical Ventilator 08/05/19 20:00 98.1 109 26 154/76 (102) 100 08/05/19 20:00 30 08/05/19 19:29 106 08/05/19 19:17 100 26 30 08/05/19 16:00 109 08/05/19 16:00 98.4 108 26 140/85 (103) 100 08/05/19 16:00 30 08/05/19 16:00 Mechanical Ventilator 08/05/19 15:30 110 26 30 08/05/19 12:00 103 08/05/19 11:55 Mechanical Ventilator 08/05/19 11:55 30 08/05/19 11:45 97.7 101 26 121/75 (90) 100 08/05/19 11:18 104 26 30 08/05/19 08:00 98.4 100 28 139/83 (101) 100 08/05/19 08:00 98 08/05/19 08:00 Mechanical Ventilator 08/05/19 08:00 30 08/05/19 07:12 101 26 30 08/05/19 06:30 88 26 08/05/19 04:00 30 08/05/19 04:00 Mechanical Ventilator 08/05/19 04:00 95 08/05/19 04:00 98.9 97 28 137/84 (101) 100 08/05/19 02:43 104 26 100 Mechanical Ventilator 30 106 26 30 08/05/19 00:00 95 08/05/19 00:00 30 08/05/19 00:00 Mechanical Ventilator 08/05/19 00:00 99.6 91 26 123/81 (95) 100 08/04/19 23:08 100.2 08/04/19 22:46 103 26 100 Mechanical Ventilator 30 106 26 30 08/04/19 21:48 100.5 110 18 114/82 (93) 100 08/04/19 21:00 109 0 117/68 (84) 100 08/04/19 20:00 30 08/04/19 20:00 Mechanical Ventilator 08/04/19 20:00 102 08/04/19 20:00 100.2 106 18 122/71 (88) 100 08/04/19 19:54 106 26 100 Mechanical Ventilator 30 106 26 30 08/04/19 19:00 111 115/74 (88) 100 08/04/19 18:00 109 18 118/71 (87) 100 08/04/19 17:00 104 20 121/62 (81) 100 08/04/19 16:15 137/88 08/04/19 16:00 98.0 107 22 137/88 (104) 100 08/04/19 16:00 30 08/04/19 16:00 Mechanical Ventilator 08/04/19 16:00 104 08/04/19 15:28 110 30 30 08/04/19 15:00 93 16 123/79 (94) 100 08/04/19 14:00 100 17 126/85 (99) 100 08/04/19 13:00 95 18 135/77 (96) 100 08/04/19 12:00 97.6 94 16 124/70 (88) 100 08/04/19 12:00 30 08/04/19 12:00 Mechanical Ventilator 08/04/19 12:00 96 08/04/19 11:14 99 26 100 Mechanical Ventilator 30 98 26 30 Intake and Output 08/05/19 08/06/19 19:00 07:00 Intake Total 805.03 ml 605.0 ml Output Total 200 ml 400 ml Balance 605.03 ml 205.0 ml Free Water 100 ml IV Total 110.03 ml 110.0 ml Tube Feeding 495 ml 495 ml Blood Product 100 ml Output Urine Total 0 ml 400 ml Stool Total 200 ml Labs Test 08/03/19 11:41 08/03/19 17:15 08/03/19 23:38 08/04/19 04:00 POC Whole Blood Glucose 199 MG/DL (74-106) White Blood Count 17.5 K/UL (4.8-10.8) Red Blood Count 3.22 M/UL (4.70-6.10) Hemoglobin 9.3 G/DL (14.2-18.0) Hematocrit 31.2 % (42.0-52.0) Mean Corpuscular Volume 97 FL (80-99) Mean Corpuscular Hemoglobin 28.8 PG (27.0-31.0) Mean Corpuscular Hemoglobin Concent 29.7 G/DL (32.0-36.0) Red Cell Distribution Width 18.4 % (11.6-14.8) Platelet Count 427 K/UL (150-450) Mean Platelet Volume 7.1 FL (6.5-10.1) Neutrophils (%) (Auto) 82.8 % (45.0-75.0) Lymphocytes (%) (Auto) 9.7 % (20.0-45.0) Monocytes (%) (Auto) 4.6 % (1.0-10.0) Eosinophils (%) (Auto) 2.2 % (0.0-3.0) Basophils (%) (Auto) 0.7 % (0.0-2.0) Sodium Level 144 MMOL/L (136-145) Potassium Level 3.6 MMOL/L (3.5-5.1) Chloride Level 101 MMOL/L (98-107) Carbon Dioxide Level 28 MMOL/L (21-32) Anion Gap 15 mmol/L (5-15) Blood Urea Nitrogen 84 mg/dL (7-18) Creatinine 9.8 MG/DL (0.55-1.30) Estimat Glomerular Filtration Rate 5.4 mL/min (>60) Glucose Level 169 MG/DL (74-106) Calcium Level 9.1 MG/DL (8.5-10.1) Phosphorus Level 2.7 MG/DL (2.5-4.9) Magnesium Level 2.6 MG/DL (1.8-2.4) Total Bilirubin 0.4 MG/DL (0.2-1.0) Aspartate Amino Transf (AST/SGOT) 20 U/L (15-37) Alanine Aminotransferase (ALT/SGPT) 13 U/L (12-78) Alkaline Phosphatase 122 U/L (46-116) C-Reactive Protein, Quantitative 1.9 mg/dL (0.00-0.90) Total Protein 8.4 G/DL (6.4-8.2) Albumin 3.2 G/DL (3.4-5.0) Globulin 5.2 g/dL Albumin/Globulin Ratio 0.6 (1.0-2.7) Test 08/04/19 11:22 08/04/19 22:37 08/05/19 03:15 08/05/19 11:37 POC Whole Blood Glucose 174 MG/DL (74-106) Random Vancomycin Level 18.8 ug/mL Test 08/05/19 16:38 08/05/19 23:07 08/06/19 03:50 08/06/19 05:25 POC Whole Blood Glucose 175 MG/DL (74-106) 177 MG/DL (74-106) White Blood Count 11.6 K/UL (4.8-10.8) Red Blood Count 3.47 M/UL (4.70-6.10) Hemoglobin 9.9 G/DL (14.2-18.0) Hematocrit 34.0 % (42.0-52.0) Mean Corpuscular Volume 98 FL (80-99) Mean Corpuscular Hemoglobin 28.4 PG (27.0-31.0) Mean Corpuscular Hemoglobin Concent 29.0 G/DL (32.0-36.0) Red Cell Distribution Width 18.2 % (11.6-14.8) Platelet Count 372 K/UL (150-450) Mean Platelet Volume 7.2 FL (6.5-10.1) Neutrophils (%) (Auto) 75.6 % (45.0-75.0) Lymphocytes (%) (Auto) 13.5 % (20.0-45.0) Monocytes (%) (Auto) 5.6 % (1.0-10.0) Eosinophils (%) (Auto) 4.5 % (0.0-3.0) Basophils (%) (Auto) 0.9 % (0.0-2.0) Sodium Level 145 MMOL/L (136-145) Potassium Level 3.3 MMOL/L (3.5-5.1) Chloride Level 105 MMOL/L (98-107) Carbon Dioxide Level 26 MMOL/L (21-32) Anion Gap 14 mmol/L (5-15) Blood Urea Nitrogen 64 mg/dL (7-18) Creatinine 7.9 MG/DL (0.55-1.30) Estimat Glomerular Filtration Rate 6.9 mL/min (>60) Glucose Level 190 MG/DL (74-106) Calcium Level 9.3 MG/DL (8.5-10.1) Phosphorus Level 2.5 MG/DL (2.5-4.9) Magnesium Level 2.5 MG/DL (1.8-2.4) Total Bilirubin 0.4 MG/DL (0.2-1.0) Aspartate Amino Transf (AST/SGOT) 23 U/L (15-37) Alanine Aminotransferase (ALT/SGPT) 12 U/L (12-78) Alkaline Phosphatase 130 U/L (46-116) C-Reactive Protein, Quantitative 7.0 mg/dL (0.00-0.90) Total Protein 8.4 G/DL (6.4-8.2) Albumin 2.8 G/DL (3.4-5.0) Globulin 5.6 g/dL Albumin/Globulin Ratio 0.5 (1.0-2.7) Micro Microbiology Date/Time Source Procedure Growth Status 08/05/19 12:15 Nasopharynx Coronavirus COVID-19 PCR ([facility]) - Final Complete Height (Feet): 6 Height (Inches): 1.00 Weight (Pounds): 172 Objective General: nv, confused, sedated Heent: bilateral eye normal inspection, bilateral eye PERRL ++Ng Respiratory: normal breath sounds, no respiratory distress, intubated/vent +++ trach+++ Cardiovascular: regular rate, rhythm, no edema Gastrointestinal: normal inspection, soft, non-distended, peg+ Rectal: deferred Musculoskeletal: normal range of motion, non-tender, R fem cath++ Neurologic: alert, motor strength/tone normal, sensory intact, responsive, speech normal Skin: Decubitus/Ulcer - See RN skin exam. : jamaal+ Greg Cabral MD Aug 06, 2019 11:08
--- NOTE | 2019-08-06 11:45 | Infectious Diseases Prog Note ---
Assessment/Plan Assessment/Plan IMPRESSION: 1. COVID19 pneumonia Positive: 05/27, 05/31 , 06/05, 06/09 ,06/17, 06/19, 06/23, 06/27, 07/03, 07/15, 07/29 Negative: 07/26, 08/04 2. MRSA carrier. 3. Chronic kidney disease , end-stage renal disease. 4. COPD. 5. Hypertension. 6. Anemia. 7. Hypothyroidism. 8. Hyperlipidemia. 9. Major depression. 10. Leukocytosis 11. Hypotension 12. Hepatitis C 13. Hyperuricemia 14. Diarrhea 15. septic shock 16. Leukocytosis worsening 17. Pneumonia with Staph aureus ( MRSA) 18. Bacteremia with Staph coagulase negative RECOMMENDATIONS: Continue IV Vancomycin & Zosyn Will f/u cultures Subjective ROS Limited/Unobtainable: Yes Constitutional: Denies: fever Allergies: Coded Allergies: No Known Allergies (Unverified , 05/28/19) Objective Vital Signs Last 24 Hour Vital Signs Date Time Temp Pulse Resp B/P (MAP) Pulse Ox O2 Delivery O2 Flow Rate FiO2 08/06/19 11:11 94 26 30 08/06/19 08:00 Mechanical Ventilator 08/06/19 08:00 97.9 104 26 154/95 (114) 100 08/06/19 08:00 30 08/06/19 07:48 108 08/06/19 07:16 97 26 30 08/06/19 06:30 88 26 08/06/19 04:00 30 08/06/19 04:00 97.9 103 26 157/99 (118) 100 08/06/19 04:00 Mechanical Ventilator 08/06/19 03:46 98 08/06/19 03:21 99 26 30 08/06/19 00:00 Mechanical Ventilator 08/06/19 00:00 98.1 105 26 142/92 (109) 100 08/05/19 23:41 110 08/05/19 23:15 101 26 30 08/05/19 20:00 Mechanical Ventilator 08/05/19 20:00 98.1 109 26 154/76 (102) 100 08/05/19 20:00 30 08/05/19 19:29 106 08/05/19 19:17 100 26 30 08/05/19 16:00 109 08/05/19 16:00 98.4 108 26 140/85 (103) 100 08/05/19 16:00 30 08/05/19 16:00 Mechanical Ventilator 08/05/19 15:30 110 26 30 08/05/19 12:00 103 08/05/19 11:55 Mechanical Ventilator 08/05/19 11:55 30 08/05/19 11:45 97.7 101 26 121/75 (90) 100 Height (Feet): 6 Height (Inches): 1.00 Weight (Pounds): 172 General Appearance: no acute distress HEENT: mucous membranes moist Respiratory/Chest: other - on ventilator Cardiovascular: normal rate Abdomen: soft, non tender, other - GT feeding Extremities: no edema Neurologic/Psychiatric: disoriented Microbiology Date/Time Source Procedure Growth Status 08/04/19 14:15 Blood Blood Culture - Preliminary NO GROWTH AFTER 24 HOURS Resulted 08/05/19 12:15 Nasopharynx Coronavirus COVID-19 PCR ([facility]) - Final Complete 08/04/19 21:00 Sputum Gram Stain - Final Resulted 08/04/19 21:00 Sputum Culture - Preliminary Staphylococcus Aureus Usual Respiratory Brinda Resulted Laboratory Tests Test 08/05/19 16:38 08/05/19 23:07 08/06/19 03:50 08/06/19 05:25 POC Whole Blood Glucose Pending 175 MG/DL (74-106) H 177 MG/DL (74-106) H White Blood Count 11.6 K/UL (4.8-10.8) H Red Blood Count 3.47 M/UL (4.70-6.10) L Hemoglobin 9.9 G/DL (14.2-18.0) L Hematocrit 34.0 % (42.0-52.0) L Mean Corpuscular Volume 98 FL (80-99) Mean Corpuscular Hemoglobin 28.4 PG (27.0-31.0) Mean Corpuscular Hemoglobin Concent 29.0 G/DL (32.0-36.0) L Red Cell Distribution Width 18.2 % (11.6-14.8) H Platelet Count 372 K/UL (150-450) Mean Platelet Volume 7.2 FL (6.5-10.1) Neutrophils (%) (Auto) 75.6 % (45.0-75.0) H Lymphocytes (%) (Auto) 13.5 % (20.0-45.0) L Monocytes (%) (Auto) 5.6 % (1.0-10.0) Eosinophils (%) (Auto) 4.5 % (0.0-3.0) H Basophils (%) (Auto) 0.9 % (0.0-2.0) Sodium Level 145 MMOL/L (136-145) Potassium Level 3.3 MMOL/L (3.5-5.1) L Chloride Level 105 MMOL/L (98-107) Carbon Dioxide Level 26 MMOL/L (21-32) Anion Gap 14 mmol/L (5-15) Blood Urea Nitrogen 64 mg/dL (7-18) H Creatinine 7.9 MG/DL (0.55-1.30) H Estimat Glomerular Filtration Rate 6.9 mL/min (>60) Glucose Level 190 MG/DL (74-106) H Calcium Level 9.3 MG/DL (8.5-10.1) Phosphorus Level 2.5 MG/DL (2.5-4.9) Magnesium Level 2.5 MG/DL (1.8-2.4) H Total Bilirubin 0.4 MG/DL (0.2-1.0) Aspartate Amino Transf (AST/SGOT) 23 U/L (15-37) Alanine Aminotransferase (ALT/SGPT) 12 U/L (12-78) Alkaline Phosphatase 130 U/L (46-116) H C-Reactive Protein, Quantitative 7.0 mg/dL (0.00-0.90) H Total Protein 8.4 G/DL (6.4-8.2) H Albumin 2.8 G/DL (3.4-5.0) L Globulin 5.6 g/dL Albumin/Globulin Ratio 0.5 (1.0-2.7) L Current Medications Medications (Trade) Dose Ordered Sig/Anthony Route PRN Reason Start Time Stop Time Status Last Admin Dose Admin Acetaminophen (Tylenol) 650 mg Q4H PRN NG For Pain 08/04/19 21:38 09/03/19 21:37 08/04/19 22:38 Chlorhexidine Gluconate (Michelle-Hex 2%) 1 applic DAILY@2000 TOPIC 08/05/19 20:00 09/05/19 19:59 08/05/19 20:16 Dextrose (Dextrose 50%) 25 ml Q30M PRN IV Hypoglycemia 08/04/19 22:00 09/18/19 19:29 Dextrose (Dextrose 50%) 50 ml Q30M PRN IV Hypoglycemia 08/04/19 22:00 09/18/19 19:29 Enoxaparin Sodium (Lovenox) 30 mg DAILY SUBQ 08/05/19 09:00 08/27/19 08:59 08/06/19 09:36 Epoetin Aftab (Epoetin Aftab(ESRD on dialysis)) 10,000 unit FRI-FRI-FRI SUBQ 08/06/19 21:00 08/31/19 20:59 Haloperidol Lactate 5 mg/ Dextrose 56 ml @ 224 mls/hr Q6H PRN IVPB Agitation 08/04/19 21:38 09/18/19 21:37 Hydralazine HCl (Apresoline) 10 mg Q4H PRN IV Blood pressure over 160 systol 08/04/19 21:39 11/02/19 21:38 Insulin Aspart (NovoLOG) EVERY 6 HOURS SUBQ 08/05/19 00:00 09/19/19 00:00 08/06/19 05:38 Lorazepam (Ativan 2mg/ml 1ml) 0.5 mg Q2H PRN IV For Anxiety 08/04/19 21:39 08/11/19 21:38 Metoclopramide HCl (Reglan) 5 mg Q8HR IVP 08/05/19 06:00 09/04/19 05:59 08/06/19 05:27 Midodrine (Pro-Amatine) 10 mg Q8HR NG 08/05/19 06:00 11/03/19 05:59 Pantoprazole (Protonix) 40 mg DAILY IVP 08/05/19 09:00 08/26/19 08:59 08/06/19 09:35 Piperacillin Sod/ Tazobactam Sod 3.375 gm/Sodium Chloride 110 ml @ 27.5 mls/hr Q12H IVPB 08/04/19 23:00 08/11/19 10:59 08/06/19 11:01 Vancomycin HCl (Vanco pharmacy to dose) 1 ea DAILY PRN MISC Per rx protocol 08/05/19 09:00 08/19/19 10:44 Ted Leyva MD Aug 06, 2019 11:45
[2019-08-06 12:00] VITALS: BP 151/90
--- NOTE | 2019-08-06 12:40 | Cardiac Electrophysiology PN ---
Assessment/Plan Assessment/Plan 1. NSTEMI type 2. Low level and flat due to renal failure. On Aspirin. EF 60%. 2. S/P Septic shock. On Midodrine 10 tid and Abx. BP high now. Likely will DC Midodrine 3. ESRD, on HD per Dr. Cole. S/P PermCath placement by IR 4. Resp failure due to COVID-19 positive pneumonia. On the Vent with 30% Fio2. S/P Tracheostomy 07/08/19. 5. Dysphagia, S/P PEG 07/13/19 6. COPD. 7. Anemia. JHONY RN Subjective Subjective In ICU, on the vent via trach. Off pressors. Covid positive x 10. Had one negative Covid yesterday Objective Last 24 Hour Vital Signs Date Time Temp Pulse Resp B/P (MAP) Pulse Ox O2 Delivery O2 Flow Rate FiO2 08/06/19 12:00 98.1 101 26 151/90 (110) 100 08/06/19 11:11 94 26 30 08/06/19 08:00 Mechanical Ventilator 08/06/19 08:00 97.9 104 26 154/95 (114) 100 08/06/19 08:00 30 08/06/19 07:48 108 08/06/19 07:16 97 26 30 08/06/19 06:30 88 26 08/06/19 04:00 30 08/06/19 04:00 97.9 103 26 157/99 (118) 100 08/06/19 04:00 Mechanical Ventilator 08/06/19 03:46 98 08/06/19 03:21 99 26 30 08/06/19 00:00 Mechanical Ventilator 08/06/19 00:00 98.1 105 26 142/92 (109) 100 08/05/19 23:41 110 08/05/19 23:15 101 26 30 08/05/19 20:00 Mechanical Ventilator 08/05/19 20:00 98.1 109 26 154/76 (102) 100 08/05/19 20:00 30 08/05/19 19:29 106 08/05/19 19:17 100 26 30 08/05/19 16:00 109 08/05/19 16:00 98.4 108 26 140/85 (103) 100 08/05/19 16:00 30 08/05/19 16:00 Mechanical Ventilator 08/05/19 15:30 110 26 30 Intake and Output 08/05/19 08/06/19 19:00 07:00 Intake Total 805.03 ml 605.0 ml Output Total 200 ml 400 ml Balance 605.03 ml 205.0 ml Free Water 100 ml IV Total 110.03 ml 110.0 ml Tube Feeding 495 ml 495 ml Blood Product 100 ml Output Urine Total 0 ml 400 ml Stool Total 200 ml Laboratory Tests Test 08/05/19 16:38 08/05/19 23:07 08/06/19 03:50 08/06/19 05:25 POC Whole Blood Glucose Pending 175 MG/DL (74-106) H 177 MG/DL (74-106) H White Blood Count 11.6 K/UL (4.8-10.8) H Red Blood Count 3.47 M/UL (4.70-6.10) L Hemoglobin 9.9 G/DL (14.2-18.0) L Hematocrit 34.0 % (42.0-52.0) L Mean Corpuscular Volume 98 FL (80-99) Mean Corpuscular Hemoglobin 28.4 PG (27.0-31.0) Mean Corpuscular Hemoglobin Concent 29.0 G/DL (32.0-36.0) L Red Cell Distribution Width 18.2 % (11.6-14.8) H Platelet Count 372 K/UL (150-450) Mean Platelet Volume 7.2 FL (6.5-10.1) Neutrophils (%) (Auto) 75.6 % (45.0-75.0) H Lymphocytes (%) (Auto) 13.5 % (20.0-45.0) L Monocytes (%) (Auto) 5.6 % (1.0-10.0) Eosinophils (%) (Auto) 4.5 % (0.0-3.0) H Basophils (%) (Auto) 0.9 % (0.0-2.0) Sodium Level 145 MMOL/L (136-145) Potassium Level 3.3 MMOL/L (3.5-5.1) L Chloride Level 105 MMOL/L (98-107) Carbon Dioxide Level 26 MMOL/L (21-32) Anion Gap 14 mmol/L (5-15) Blood Urea Nitrogen 64 mg/dL (7-18) H Creatinine 7.9 MG/DL (0.55-1.30) H Estimat Glomerular Filtration Rate 6.9 mL/min (>60) Glucose Level 190 MG/DL (74-106) H Calcium Level 9.3 MG/DL (8.5-10.1) Phosphorus Level 2.5 MG/DL (2.5-4.9) Magnesium Level 2.5 MG/DL (1.8-2.4) H Total Bilirubin 0.4 MG/DL (0.2-1.0) Aspartate Amino Transf (AST/SGOT) 23 U/L (15-37) Alanine Aminotransferase (ALT/SGPT) 12 U/L (12-78) Alkaline Phosphatase 130 U/L (46-116) H C-Reactive Protein, Quantitative 7.0 mg/dL (0.00-0.90) H Total Protein 8.4 G/DL (6.4-8.2) H Albumin 2.8 G/DL (3.4-5.0) L Globulin 5.6 g/dL Albumin/Globulin Ratio 0.5 (1.0-2.7) L Test 08/06/19 12:06 POC Whole Blood Glucose 201 MG/DL (74-106) H Microbiology Date/Time Source Procedure Growth Status 08/04/19 14:15 Blood Blood Culture - Preliminary NO GROWTH AFTER 24 HOURS Resulted 08/05/19 12:15 Nasopharynx Coronavirus COVID-19 PCR ([facility]) - Final Complete 08/04/19 21:00 Sputum Gram Stain - Final Resulted 08/04/19 21:00 Sputum Culture - Preliminary Staphylococcus Aureus Usual Respiratory Brinda Resulted Objective HEAD AND NECK: No JVD. Tracheostomy in place. Left IJ HD catheter now in place Right IJ PermCath in place LUNGS: Decreased breath sounds. CARDIOVASCULAR: Regular S1 and S2. Tachycardic. ABDOMEN: Soft. PEG in place EXTREMITIES: No pitting edema. Gio Baker MD Aug 06, 2019 12:40
--- NOTE | 2019-08-06 13:26 | Nephrology Progress Note ---
Assessment/Plan Problem List: (1) CASSANDRA (acute kidney injury) (2) Anemia in chronic kidney disease (CKD) (3) HTN (hypertension) (4) COVID-19 Assessment Acute renal failure most likely superimposed on chronic kidney disease Suspected COVID-19 virus infection Possible Pneumonia, lymphopenia, elevated AST Cardiomegaly, possible CHF COPD Hypertension Anemia, most likely related to chronic kidney disease Plan August 05: Labs reviewed. Dialysis scheduled for tomorrow. Continue per consultants. August 04: No labs done today. Dialyzed yesterday. Check labs tomorrow. Continue per consultants. August 03: Lab reviewed. Due for dialysis today. White blood cell 17,500. August 02: Lab reviewed. Low phosphorus replaced. Hemodialysis ordered for tomorrow. White blood cells over 18,000. August 01: Labs reviewed. Potassium replacement ordered. Remains full code on ventilator via trach. Continue per consultants. July 31: Dialyzed yesterday. No can panel today. Remains full code. Remains on ventilator. Being fed through PEG. Continue per consultants. July 30: Patient due for dialysis today. Labs are reviewed. Remains full code. Status post trach to ventilator. Status post PEG. July 29: Patient dialyzed yesterday. Due for dialysis tomorrow. Remains in ICU. Full code. Status post trach tube to ventilator. Status post PEG. July 28: Due for dialysis today. Labs reviewed. Full code. Patient trached and vented. July 27: Last COVID test negative. COVID test will be repeated tomorrow. Will order dialysis tomorrow. Remains full code. Medication list and labs reviewed. July 26: No labs done today. Dialysis done yesterday. Will check lab tomorrow. Dialysis as needed. July 25: Lab reviewed. Dialysis today. Discussed with RN. July 24: Lab reviewed. Do dialysis tomorrow. Discussed with RN. July 23: Lab reviewed. Dialyzed yesterday. Discussed with RN. Remains full code. Next dialysis July 25. Will check labs tomorrow. July 22: Labs reviewed. Due for dialysis today. Discussed with RN. Watch borderline low blood pressure. Discussed with dialysis nurse. July 21: Today's lab reviewed. Will arrange for dialysis tomorrow. Discussed with RN. Aim to keep the blood pressure above 100 systolic. Continue per consultants. July 20: Patient was dialyzed yesterday. Could not ultrafiltrate much due to low blood pressure. Discussed with SHANIQUE Dick today. No labs drawn today. Continue per consultants. July 19: Due for dialysis today. Discussed with SHANIQUE Dick. Continue per consultants. July 18: Dialyzed July 16. Will order dialysis tomorrow July 19. Continues to be on ventilator through trach. No labs done today. Continue per consultants. July 17: Dialyzed yesterday. Stable from renal standpoint of view. Remains full code. Status post trach on vent. Status post PEG. Continue per consultants. July 16: Dialysis today. Will resume Midodrin to prevent hypotension. Patient remains full code. July 15: Dialyzed yesterday, due for dialysis tomorrow. Labs and medication list reviewed. Continue per consultants. Patient remains full code. COVID-19 detected again. July 14: Patient currently on dialysis. This is continuation of dialysis from yesterday as yesterday's dialysis was cut short due to catheter malfunction. Labs and medication reviewed. Continue per consultants. July 13: Patient currently on hemodialysis. The dialysis catheter which is a intrajugular Kamlesh has poor flow. Will try TPA. Continue per consultants. July 12: Due for PEG today. Due for dialysis tomorrow. Continue per consultants. Discussed with RN. July 11: Plan for dialysis today. Discussed with RN. Data reviewed. July 10: Plan for dialysis tomorrow July 11. Waiting for consent to proceed with PEG. Continue per consultants. Medication reviewed. Labs reviewed. Discussed with RN. July 09: Dialyzed yesterday. Labs reviewed. Medication reviewed. Next hemodialysis July 11. July 08: Patient has tracheostomy now. Connected to ventilator. Due for dialysis today. Continue per consultants. Discussed with SHANIQUE Romero. July 07: Patient is due for tracheostomy today. Patient was last dialyzed July 05. Will order dialysis for tomorrow. July 06: Patient is intubated on ventilator however the plan is to extubate today. Patient was dialysis yesterday July 05. The dialysis time was cut short due to patient's respiratory distress. Only 1 L was removed during dialysis yesterday. Today's lab reviewed. Continue per consultants. Will arrange for dialysis as needed. July 05: Patient due for dialysis today. Remains intubated. Will schedule permacath placement in a.m. blood cultures on July 04 are negative. July 04: Patient was dialyzed yesterday. Due for dialysis tomorrow. Continues to be intubated. After tomorrow's dialysis will order a permacath. July 03: Dialysis is about to be started now Continues to be intubated Will plan to remove the femoral dialysis catheter and exchanged for a new temporary catheter per ID recommendation We will check surveillance blood culture tomorrow July 02: Patient was dialyzed yesterday and due for dialysis tomorrow Stable from renal standpoint W on dialysis Continue per consultants, weaning....... etc. July 01: Dialysis today Other status unchanged June 30: Due for dialysis tomorrow Remains intubated on ventilator Labs and medication reviewed Discussed with RN Stable from renal standpoint of view June 29: Dialyzed yesterday Due for dialysis tomorrow Stable from renal standpoint to view Keeps failing weaning process June 28: Patient due for dialysis today Stable from renal standpoint to view Continue per consultants June 27: Labs reviewed Due due for dialysis June 28 Discussed with SHANIQUE Silverman per consultants Remains intubated on ventilator June 26 Labs reviewed Dialyzed yesterday Started on weaning today Continue to monitor renal parameters June 16: On dialysis now Potassium supplement implemented Continue per consultants Next dialysis June 27June 15: Status unchanged Dialyzed yesterday will dialyze again tomorrow Potassium supplements given Discussed with RN June 14: Due dialysis today Status: Remains intubated on ventilator June 22: Status unchanged Dialyzed yesterday and duefordialysistomorrow Serum sodium stable today June 21 Remains intubated on ventilator Due dialysis today Emphasized high sodium bath for dialysis June 20: Remains intubated on ventilator Dialyzed June 19 next dialysis June 21 Serum sodium 128, will give 250 cc 3% saline Remains full code Discussed with RN Iron panel ordered June 19: Discussed with RN. Patient due for dialysis today. Continue pulmonary support. Remains full code. June 18: Patient dialyzed yesterday June 17 Serum sodium improved but still low Arrange for dialysis tomorrow June 19 Continue per consultants June 17: Due for dialysis today Today's lab reviewed, low serum sodium noted, Emphasized on high sodium bath to dialysis nurse Discussed with SHANIQUE Yuen June 7: Dialyzed yesterday Remains intubated Labs reviewed, serum sodium 131 Plan to dialyze tomorrow June 17 with high sodium bath Discussed with SHANIQUE Yuen June 6: Due for dialysis today Labs reviewed Discussed with RN Transfuse 1 unit of packed RBCs today for low hemoglobin of 7.1 June 5: Blood pressure well maintained Receive dialysis June 13 next hemodialysis June 15June 4: Discussed with RN in ICU Patient did not receive proper dialysis yesterday due to dialysis catheter malfunction Catheter to be adjusted today and dialyzed to be resumed today Continue per consultants Positive for COVID 28 June 2: Patient now intubated on mechanical ventilation Discussed with RN Alpa, today June 12 Patient received dialysis yesterday June 10 next hemodialysis June 12 Blood pressure better maintained Today's labs reviewed Continue per consultants Previously patient received dialysis last evening June 05, next dialysis June 07 which was incomplete due to patient's hypotension Will start on midodrine for blood pressure support. Meanwhile continue other pressors as needed Previously Patient is doing poorly, septic, white blood cells are rising, Hypotension somewhat improved We will keep n.p.o. , NG tube for medications, and change medication to IV as needed Patient remains full code Monitor vancomycin level Previously: Patient pulled out his femoral catheter yesterday June 03 which was reinserted by Dr. Mast Patient scheduled for dialysis again June 04, which again was not done due to dialysis nurse citing catheter malfunction Meanwhile continue management per ID, pulmonary , and psych. Meanwhile white blood cell count is rising. Patient blood pressure borderline low. Will check ABG Previously May 31 : I believe patient need dialysis treatment He however needs to competency assessment if can make decisions or not I will communicate with Dr. Mluligan Previously: Per pulmonary and ID advice Adjust blood pressure medication Renal diet Anemia work-up 2D echocardiogram refused Kidney ultrasound refused Jules catheter Urine studies Per orders Subjective ROS Limited/Unobtainable: Yes Objective Objective Last 24 Hour Vital Signs Date Time Temp Pulse Resp B/P (MAP) Pulse Ox O2 Delivery O2 Flow Rate FiO2 08/06/19 12:00 98.1 101 26 151/90 (110) 100 08/06/19 11:11 94 26 30 08/06/19 08:00 Mechanical Ventilator 08/06/19 08:00 97.9 104 26 154/95 (114) 100 08/06/19 08:00 30 08/06/19 07:48 108 08/06/19 07:16 97 26 30 08/06/19 06:30 88 26 08/06/19 04:00 30 08/06/19 04:00 97.9 103 26 157/99 (118) 100 08/06/19 04:00 Mechanical Ventilator 08/06/19 03:46 98 08/06/19 03:21 99 26 30 08/06/19 00:00 Mechanical Ventilator 08/06/19 00:00 98.1 105 26 142/92 (109) 100 08/05/19 23:41 110 08/05/19 23:15 101 26 30 08/05/19 20:00 Mechanical Ventilator 08/05/19 20:00 98.1 109 26 154/76 (102) 100 08/05/19 20:00 30 08/05/19 19:29 106 08/05/19 19:17 100 26 30 08/05/19 16:00 109 08/05/19 16:00 98.4 108 26 140/85 (103) 100 08/05/19 16:00 30 08/05/19 16:00 Mechanical Ventilator 08/05/19 15:30 110 26 30 Intake and Output 08/05/19 08/06/19 19:00 07:00 Intake Total 805.03 ml 605.0 ml Output Total 200 ml 400 ml Balance 605.03 ml 205.0 ml Free Water 100 ml IV Total 110.03 ml 110.0 ml Tube Feeding 495 ml 495 ml Blood Product 100 ml Output Urine Total 0 ml 400 ml Stool Total 200 ml Laboratory Tests 08/05/19 16:38: POC Whole Blood Glucose [Pending] 08/05/19 23:07: POC Whole Blood Glucose 175H 08/06/19 03:50: White Blood Count 11.6H, Red Blood Count 3.47L, Hemoglobin 9.9L, Hematocrit 34.0L, Mean Corpuscular Volume 98, Mean Corpuscular Hemoglobin 28.4, Mean Corpuscular Hemoglobin Concent 29.0L, Red Cell Distribution Width 18.2H, Platelet Count 372, Mean Platelet Volume 7.2, Neutrophils (%) (Auto) 75.6H, Lymphocytes (%) (Auto) 13.5L, Monocytes (%) (Auto) 5.6, Eosinophils (%) (Auto) 4.5H, Basophils (%) (Auto) 0.9, Sodium Level 145, Potassium Level 3.3L, Chloride Level 105, Carbon Dioxide Level 26, Anion Gap 14, Blood Urea Nitrogen 64H, Creatinine 7.9H, Estimat Glomerular Filtration Rate 6.9, Glucose Level 190H , Calcium Level 9.3, Phosphorus Level 2.5, Magnesium Level 2.5H, Total Bilirubin 0.4, Aspartate Amino Transf (AST/SGOT) 23, Alanine Aminotransferase ( ALT/SGPT) 12, Alkaline Phosphatase 130H, C-Reactive Protein, Quantitative 7.0H, Total Protein 8.4H, Albumin 2.8L, Globulin 5.6, Albumin/Globulin Ratio 0.5L 08/06/19 05:25: POC Whole Blood Glucose 177H 08/06/19 12:06: POC Whole Blood Glucose 201H Height (Feet): 6 Height (Inches): 1.00 Weight (Pounds): 172 General Appearance: no apparent distress EENT: other - Trach and vent Cardiovascular: tachycardia Respiratory/Chest: decreased breath sounds Abdomen: distended Objective No change Mic Cole MD Aug 06, 2019 13:26
--- NOTE | 2019-08-06 13:33 | Pulmonolgy Critical Care Note ---
Critical Care - Asmt/Plan Assessment/Plan: Impression: COVID-19 virus infection Pneumonia Respiratory failure on ventilator, wean as tolerated once off pressors CKD - on HD Hypotension on pressors previously Cardiomegaly Leukocytosis Elevated AST COPD Chronic Kidney Disease - HD H/o Hypertension Worsening anemia sepsis Plan: trach care as is Antibiotics per ID HD per renal monitor vitals AC - weaning trials as able; CPAP and hope to transition to trach collar 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 if needed; Monitor lab data nutrition feeds Hemodialysis per Renal impression, plan, and exam edited and reviewed in detail care discussed with mushroom packer - Objective Last 24 Hour Vital Signs Date Time Temp Pulse Resp B/P (MAP) Pulse Ox O2 Delivery O2 Flow Rate FiO2 08/06/19 12:00 98.1 101 26 151/90 (110) 100 08/06/19 11:11 94 26 30 08/06/19 08:00 Mechanical Ventilator 08/06/19 08:00 97.9 104 26 154/95 (114) 100 08/06/19 08:00 30 08/06/19 07:48 108 08/06/19 07:16 97 26 30 08/06/19 06:30 88 26 08/06/19 04:00 30 08/06/19 04:00 97.9 103 26 157/99 (118) 100 08/06/19 04:00 Mechanical Ventilator 08/06/19 03:46 98 08/06/19 03:21 99 26 30 08/06/19 00:00 Mechanical Ventilator 08/06/19 00:00 98.1 105 26 142/92 (109) 100 08/05/19 23:41 110 08/05/19 23:15 101 26 30 08/05/19 20:00 Mechanical Ventilator 08/05/19 20:00 98.1 109 26 154/76 (102) 100 08/05/19 20:00 30 08/05/19 19:29 106 08/05/19 19:17 100 26 30 08/05/19 16:00 109 08/05/19 16:00 98.4 108 26 140/85 (103) 100 08/05/19 16:00 30 08/05/19 16:00 Mechanical Ventilator 08/05/19 15:30 110 26 30 Objective: WDWN NAD trach reduced breath sounds bilaterally without rhonchi or wheeze [id number] without MRG NABS nontender no HSM no CC mild edema reduced LOC Micro: Microbiology Date/Time Source Procedure Growth Status 08/04/19 14:15 Blood Blood Culture - Preliminary NO GROWTH AFTER 24 HOURS Resulted 08/05/19 12:15 Nasopharynx Coronavirus COVID-19 PCR ([facility]) - Final Complete 08/04/19 21:00 Sputum Gram Stain - Final Resulted 08/04/19 21:00 Sputum Culture - Preliminary Staphylococcus Aureus Usual Respiratory Brinda Resulted Accucheck: 201 Critical Care - Subjective ROS Limited/Unobtainable: Yes Condition: other EKG Rhythm: Sinus Rhythm FI02: 30 Vent Support Breath Rate: 26 Vent Support Mode: AC Vent Tidal Volume: 500 Sputum Amount: Small PEEP: 5.0 PIP: 34 Tube Feeding Amount: 45 I&O: Intake and Output 08/05/19 08/06/19 19:00 07:00 Intake Total 805.03 ml 605.0 ml Output Total 200 ml 400 ml Balance 605.03 ml 205.0 ml Free Water 100 ml IV Total 110.03 ml 110.0 ml Tube Feeding 495 ml 495 ml Blood Product 100 ml Output Urine Total 0 ml 400 ml Stool Total 200 ml ET-Tube: 7.5 ET Position: 24 Elliot Tineo MD Aug 06, 2019 13:33
[2019-08-06] MEDS ORDERED: Sodium Chloride for KCL Premix x 2hrs IV SCH (15:30)
[2019-08-06 16:00] VITALS: BP 139/91
--- NOTE | 2019-08-06 19:24 | Surgery Progress Note ---
Surgery Progress Note Subjective Procedure Performed Left internal jugular temporary hemodialysis catheter removal Additional Comments no acute events labs noted exam stable Objective Last 24 Hour Vital Signs Date Time Temp Pulse Resp B/P (MAP) Pulse Ox O2 Delivery O2 Flow Rate FiO2 08/06/19 19:00 107 26 30 08/06/19 16:00 30 08/06/19 16:00 96 08/06/19 16:00 Mechanical Ventilator 08/06/19 16:00 97.7 106 26 139/91 (107) 100 08/06/19 15:20 100 26 30 08/06/19 12:00 Mechanical Ventilator 08/06/19 12:00 30 08/06/19 12:00 98.1 101 26 151/90 (110) 100 08/06/19 11:48 98 08/06/19 11:11 94 26 30 08/06/19 08:00 Mechanical Ventilator 08/06/19 08:00 97.9 104 26 154/95 (114) 100 08/06/19 08:00 30 08/06/19 07:48 108 08/06/19 07:16 97 26 30 08/06/19 06:30 88 26 08/06/19 04:00 30 08/06/19 04:00 97.9 103 26 157/99 (118) 100 08/06/19 04:00 Mechanical Ventilator 08/06/19 03:46 98 08/06/19 03:21 99 26 30 08/06/19 00:00 Mechanical Ventilator 08/06/19 00:00 98.1 105 26 142/92 (109) 100 08/05/19 23:41 110 08/05/19 23:15 101 26 30 08/05/19 20:00 Mechanical Ventilator 08/05/19 20:00 98.1 109 26 154/76 (102) 100 08/05/19 20:00 30 08/05/19 19:29 106 I&O Intake and Output 08/05/19 08/06/19 19:00 07:00 Intake Total 805.03 ml 650.0 ml Output Total 200 ml 400 ml Balance 605.03 ml 250.0 ml Free Water 100 ml IV Total 110.03 ml 110.0 ml Tube Feeding 495 ml 540 ml Blood Product 100 ml Output Urine Total 0 ml 400 ml Stool Total 200 ml Dressing: other Wound: other Drains: other Cardiovascular: RSR Respiratory: decreased breath sounds Abdomen: soft, non-tender, present bowel sounds Extremities: no cyanosis Laboratory Tests Test 08/05/19 23:07 08/06/19 03:50 08/06/19 05:25 08/06/19 12:06 POC Whole Blood Glucose 175 MG/DL (74-106) H 177 MG/DL (74-106) H 201 MG/DL (74-106) H White Blood Count 11.6 K/UL (4.8-10.8) H Red Blood Count 3.47 M/UL (4.70-6.10) L Hemoglobin 9.9 G/DL (14.2-18.0) L Hematocrit 34.0 % (42.0-52.0) L Mean Corpuscular Volume 98 FL (80-99) Mean Corpuscular Hemoglobin 28.4 PG (27.0-31.0) Mean Corpuscular Hemoglobin Concent 29.0 G/DL (32.0-36.0) L Red Cell Distribution Width 18.2 % (11.6-14.8) H Platelet Count 372 K/UL (150-450) Mean Platelet Volume 7.2 FL (6.5-10.1) Neutrophils (%) (Auto) 75.6 % (45.0-75.0) H Lymphocytes (%) (Auto) 13.5 % (20.0-45.0) L Monocytes (%) (Auto) 5.6 % (1.0-10.0) Eosinophils (%) (Auto) 4.5 % (0.0-3.0) H Basophils (%) (Auto) 0.9 % (0.0-2.0) Sodium Level 145 MMOL/L (136-145) Potassium Level 3.3 MMOL/L (3.5-5.1) L Chloride Level 105 MMOL/L (98-107) Carbon Dioxide Level 26 MMOL/L (21-32) Anion Gap 14 mmol/L (5-15) Blood Urea Nitrogen 64 mg/dL (7-18) H Creatinine 7.9 MG/DL (0.55-1.30) H Estimat Glomerular Filtration Rate 6.9 mL/min (>60) Glucose Level 190 MG/DL (74-106) H Calcium Level 9.3 MG/DL (8.5-10.1) Phosphorus Level 2.5 MG/DL (2.5-4.9) Magnesium Level 2.5 MG/DL (1.8-2.4) H Total Bilirubin 0.4 MG/DL (0.2-1.0) Aspartate Amino Transf (AST/SGOT) 23 U/L (15-37) Alanine Aminotransferase (ALT/SGPT) 12 U/L (12-78) Alkaline Phosphatase 130 U/L (46-116) H C-Reactive Protein, Quantitative 7.0 mg/dL (0.00-0.90) H Total Protein 8.4 G/DL (6.4-8.2) H Albumin 2.8 G/DL (3.4-5.0) L Globulin 5.6 g/dL Albumin/Globulin Ratio 0.5 (1.0-2.7) L Test 08/06/19 17:05 POC Whole Blood Glucose 166 MG/DL (74-106) H Plan Problems: (1) Suspected COVID-19 virus infection (2) HTN (hypertension) (3) CASSANDRA (acute kidney injury) Assessment & Plan: Needs urgent HD needs access patient okay and consented see note will follow with recs new line placed discussed with team and nephrology HD line functional when checked has TPA now please use appropriately Cathflo used again this flow during dialysis on 430 was low. Will monitor may need line change 5/4 plan for HD as per renal may need to take fluid off with HD edema anasarca dressings saturated and changed will monitor cont with HD IJ left line placed for HD given extent of prior line in place. leukocytosis blood cx negative may need to change out line new line okay HD going well Continue HD as tolerated May need pressors for HD as needed (4) Anemia in chronic kidney disease (CKD) (5) Anemia (6) Renal failure (7) Suspected COVID-19 virus infection Assessment & Plan: Pt deconditioned and despite all skin preventions Pt noted to have developed several pressure injuries. . Stable dry eschar noted to clefts of R and L ears. No erythema noted . DTPI noted to L trochanter. Base of injury is maroon in colour with marginal erythema along borders. Partially opened DTPI Sacrum, R and L Buttocks. Base of wound is maroon with two small open wounds L sacrum and L buttocks. Pt has an APM/MOMO Mattress overlay and is being positioned with pillows as per tolerance and within protocols. worsening despite medical efforts will cont to provide therapy Tx.Plan: Apply Cavilon Skin Barrier to both ears Daily and prn. Apply Moisture Barrier Paste to Sacrum,R and L Buttocks. Cover with Optifoam drsgs. Change every 3 days and PRN. Apply Cavilon Skin Barrier to R and L trochanter. Cover each site with Optifoam drsgs.Change every 7 days and PRN. Apply Cavilon Skin Barrier to both heels. Cover each heel with Optifoam drsg. Change every 7 days and prn. Off-load heels with pillow. Reposition at least every 2hours or as tolerated. APM/MOMO Mattress overlay. (8) COVID-19 Assessment & Plan: COVID + c diff negative febrile leukocytosis renal insufficiency see above cont resp care Rx as per ID worsening on vent support now cxr noted on pressors prognosis guarded repeat covid ++ weaning vent and pressors off slowly showing improvement slowly recovering will need trach as unable to wean vent safely [facility] consent obtained s/p trach pending peg worsening on levo max (9) Sepsis Assessment & Plan: worsening leukocytosis febrile on pressors discussed with ID. lines evaluated and clean. he is septic on pressors and needs central access in difficult venous access patient blood cultures negative will monitor temp HD cath out now with permacath left tlc still subclavian needed line c/d/i Yaniv Mast Aug 06, 2019 19:24
[2019-08-06] MEDS: Dyna-Hex 2% Top Sol 2oz TOPIC SCH (19:54)
[2019-08-06 20:00] VITALS: BP 137/89
[2019-08-06] MEDS ORDERED: Epoetin Alfa-EPBX(ESRD on dialysis)10,000 unit/ml vial SUBQ SCH (21:00)
--- NOTE | 2019-08-06 21:39 | General Progress Note ---
Assessment/Plan Problem List: (1) HTN (hypertension) ICD Codes: I10 - Essential (primary) hypertension SNOMED: 75587609 (2) CASSANDRA (acute kidney injury) ICD Codes: N17.9 - Acute kidney failure, unspecified SNOMED: 0387682, 76329980 (3) Anemia in chronic kidney disease (CKD) ICD Codes: N18.9 - Chronic kidney disease, unspecified; D63.1 - Anemia in chronic kidney disease SNOMED: 799873989 (4) Renal failure ICD Codes: N19 - Unspecified kidney failure SNOMED: 62485779 (5) Respiratory failure requiring intubation ICD Codes: J96.90 - Respiratory failure, unspecified, unspecified whether with hypoxia or hypercapnia; A41.89 - Other specified sepsis SNOMED: 610903164, 080346251 (6) Pneumonia due to COVID-19 virus ICD Codes: U07.1 - COVID-19; J12.89 - Other viral pneumonia SNOMED: 560559291, 041968646 (7) Sepsis due to severe acute respiratory syndrome coronavirus 2 (SARS-CoV-2) ICD Codes: U07.1 - COVID-19; A41.89 - Other specified sepsis SNOMED: 555503682, 480795008 Status: progressing, unchanged, deteriorating Assessment/Plan: trach and peg s/p pna and s/p sepsis needs placement diaylsis per renal check lytes afebrile Subjective ROS Limited/Unobtainable: Yes Allergies: Coded Allergies: No Known Allergies (Unverified , 05/28/19) Objective Last 24 Hour Vital Signs Date Time Temp Pulse Resp B/P (MAP) Pulse Ox O2 Delivery O2 Flow Rate FiO2 08/06/19 20:00 30 08/06/19 20:00 Mechanical Ventilator 08/06/19 20:00 97.9 92 26 137/89 (105) 100 08/06/19 19:48 90 08/06/19 19:00 107 26 30 08/06/19 16:00 30 08/06/19 16:00 96 08/06/19 16:00 Mechanical Ventilator 08/06/19 16:00 97.7 106 26 139/91 (107) 100 08/06/19 15:20 100 26 30 08/06/19 12:00 Mechanical Ventilator 08/06/19 12:00 30 08/06/19 12:00 98.1 101 26 151/90 (110) 100 08/06/19 11:48 98 08/06/19 11:11 94 26 30 08/06/19 08:00 Mechanical Ventilator 08/06/19 08:00 97.9 104 26 154/95 (114) 100 08/06/19 08:00 30 08/06/19 07:48 108 08/06/19 07:16 97 26 30 08/06/19 06:30 88 26 08/06/19 04:00 30 08/06/19 04:00 97.9 103 26 157/99 (118) 100 08/06/19 04:00 Mechanical Ventilator 08/06/19 03:46 98 08/06/19 03:21 99 26 30 08/06/19 00:00 Mechanical Ventilator 08/06/19 00:00 98.1 105 26 142/92 (109) 100 08/05/19 23:41 110 08/05/19 23:15 101 26 30 Intake and Output 08/05/19 08/06/19 19:00 07:00 Intake Total 805.03 ml 650.0 ml Output Total 200 ml 400 ml Balance 605.03 ml 250.0 ml Free Water 100 ml IV Total 110.03 ml 110.0 ml Tube Feeding 495 ml 540 ml Blood Product 100 ml Output Urine Total 0 ml 400 ml Stool Total 200 ml Laboratory Tests 08/05/19 23:07: POC Whole Blood Glucose 175H 08/06/19 03:50: White Blood Count 11.6H, Red Blood Count 3.47L, Hemoglobin 9.9L, Hematocrit 34.0L, Mean Corpuscular Volume 98, Mean Corpuscular Hemoglobin 28.4, Mean Corpuscular Hemoglobin Concent 29.0L, Red Cell Distribution Width 18.2H, Platelet Count 372, Mean Platelet Volume 7.2, Neutrophils (%) (Auto) 75.6H, Lymphocytes (%) (Auto) 13.5L, Monocytes (%) (Auto) 5.6, Eosinophils (%) (Auto) 4.5H, Basophils (%) (Auto) 0.9, Sodium Level 145, Potassium Level 3.3L, Chloride Level 105, Carbon Dioxide Level 26, Anion Gap 14, Blood Urea Nitrogen 64H, Creatinine 7.9H, Estimat Glomerular Filtration Rate 6.9, Glucose Level 190H , Calcium Level 9.3, Phosphorus Level 2.5, Magnesium Level 2.5H, Total Bilirubin 0.4, Aspartate Amino Transf (AST/SGOT) 23, Alanine Aminotransferase ( ALT/SGPT) 12, Alkaline Phosphatase 130H, C-Reactive Protein, Quantitative 7.0H, Total Protein 8.4H, Albumin 2.8L, Globulin 5.6, Albumin/Globulin Ratio 0.5L 08/06/19 05:25: POC Whole Blood Glucose 177H 08/06/19 12:06: POC Whole Blood Glucose 201H 08/06/19 17:05: POC Whole Blood Glucose 166H Height (Feet): 6 Height (Inches): 1.00 Weight (Pounds): 172 Karishma Mulligan MD Aug 06, 2019 21:39
--- NOTE | 2019-08-06 23:40 | Psych Consult Progress Note ---
Psychiatry Progress Note Psychiatry Progress Note Medications Current Medications Medications (Trade) Dose Ordered Sig/Anthony Route PRN Reason Start Time Stop Time Status Last Admin Dose Admin Acetaminophen (Tylenol) 650 mg Q4H PRN NG For Pain 08/04/19 21:38 09/03/19 21:37 08/04/19 22:38 Chlorhexidine Gluconate (Michelle-Hex 2%) 1 applic DAILY@2000 TOPIC 08/05/19 20:00 09/05/19 19:59 08/06/19 19:54 Dextrose (Dextrose 50%) 25 ml Q30M PRN IV Hypoglycemia 08/04/19 22:00 09/18/19 19:29 Dextrose (Dextrose 50%) 50 ml Q30M PRN IV Hypoglycemia 08/04/19 22:00 09/18/19 19:29 Enoxaparin Sodium (Lovenox) 30 mg DAILY SUBQ 08/05/19 09:00 08/27/19 08:59 08/06/19 09:36 Epoetin Aftab (Epoetin Aftab(ESRD on dialysis)) 10,000 unit FRI-FRI-FRI SUBQ 08/06/19 21:00 08/31/19 20:59 08/06/19 20:18 Haloperidol Lactate 5 mg/ Dextrose 56 ml @ 224 mls/hr Q6H PRN IVPB Agitation 08/04/19 21:38 09/18/19 21:37 Hydralazine HCl (Apresoline) 10 mg Q4H PRN IV Blood pressure over 160 systol 08/04/19 21:39 11/02/19 21:38 Insulin Aspart (NovoLOG) EVERY 6 HOURS SUBQ 08/05/19 00:00 09/19/19 00:00 08/06/19 23:33 Lorazepam (Ativan 2mg/ml 1ml) 0.5 mg Q2H PRN IV For Anxiety 08/04/19 21:39 08/11/19 21:38 Metoclopramide HCl (Reglan) 5 mg Q8HR IVP 08/05/19 06:00 09/04/19 05:59 08/06/19 22:46 Pantoprazole (Protonix) 40 mg DAILY IVP 08/05/19 09:00 08/26/19 08:59 08/06/19 09:35 Piperacillin Sod/ Tazobactam Sod 3.375 gm/Sodium Chloride 110 ml @ 27.5 mls/hr Q12H IVPB 08/04/19 23:00 08/11/19 10:59 08/06/19 22:46 Vancomycin HCl ([facility] pharmacy to dose) 1 ea DAILY PRN MISC Per rx protocol 08/05/19 09:00 08/19/19 10:44 Neurological/Psychiatric: Reports: anxiety, depressed, emotional problems Allergies: Coded Allergies: No Known Allergies (Unverified , 05/28/19) Objective Data Height (Feet): 6 Height (Inches): 1.00 Weight (Pounds): 172 General Appearance: no apparent distress, alert, confused, agitated Assessment/Plan Status: progressing, unchanged, deteriorating Assessment/Plan: The pt benefits from restraints cont psychotropic meds dw nurse Guicho Pimentel MD Aug 06, 2019 23:40
[2019-08-07] VITALS: BP 150/99
[2019-08-07 04:00] VITALS: BP 147/90
[2019-08-07] MEDS: Metoclopramide 10mg/2ml Inj IVP SCH ×3 (05:20→21:09)
[2019-08-07] MEDS: NovoLOG Insulin Flexpen SUBQ SCH ×4 (05:21→23:55)
--- NOTE | 2019-08-07 07:11 | General Progress Note ---
Assessment/Plan Status: progressing, unchanged, deteriorating Assessment/Plan: 1. Diabetes. 2. Hypertension. 3. Coronary artery disease. 4. COPD. 5. Psychiatric disorder with schizophrenia. 6. History of hepatitis C. 7. HLP. 8. Chronic kidney disease, now with acute renal failure. 9. Anemia. 10. Hypothyroidism. 11. Spinal stenosis. 12. Constipation. 13. GERD. 14. COVID positive HD per nephrology fu labs icu care s/p PEG GTF monitor for residuals Subjective ROS Limited/Unobtainable: No Allergies: Coded Allergies: No Known Allergies (Unverified , 05/28/19) Objective Last 24 Hour Vital Signs Date Time Temp Pulse Resp B/P (MAP) Pulse Ox O2 Delivery O2 Flow Rate FiO2 08/07/19 07:04 113 30 30 08/07/19 06:30 99 25 08/07/19 04:00 30 08/07/19 04:00 98.6 109 26 147/90 (109) 100 08/07/19 04:00 Mechanical Ventilator 08/07/19 03:56 115 08/07/19 03:19 107 27 30 08/07/19 00:06 117 08/07/19 00:00 97.9 108 29 150/99 (116) 100 08/07/19 00:00 Mechanical Ventilator 08/06/19 22:50 111 28 30 08/06/19 20:00 30 08/06/19 20:00 Mechanical Ventilator 08/06/19 20:00 97.9 92 26 137/89 (105) 100 08/06/19 19:48 90 08/06/19 19:00 107 26 30 08/06/19 16:00 30 08/06/19 16:00 96 08/06/19 16:00 Mechanical Ventilator 08/06/19 16:00 97.7 106 26 139/91 (107) 100 08/06/19 15:20 100 26 30 08/06/19 12:00 Mechanical Ventilator 08/06/19 12:00 30 08/06/19 12:00 98.1 101 26 151/90 (110) 100 08/06/19 11:48 98 08/06/19 11:11 94 26 30 08/06/19 08:00 Mechanical Ventilator 08/06/19 08:00 97.9 104 26 154/95 (114) 100 08/06/19 08:00 30 08/06/19 07:48 108 08/06/19 07:16 97 26 30 Intake and Output 08/06/19 08/07/19 19:00 07:00 Intake Total 770 ml 665.0 ml Output Total 400 ml 350 ml Balance 370 ml 315.0 ml Free Water 230 ml 60 ml IV Total 110.0 ml Tube Feeding 540 ml 495 ml Stool Total 400 ml 350 ml Laboratory Tests 08/06/19 12:06: POC Whole Blood Glucose 201H 08/06/19 17:05: POC Whole Blood Glucose 166H 08/06/19 23:27: POC Whole Blood Glucose [Pending] 08/07/19 05:17: POC Whole Blood Glucose [Pending] Height (Feet): 6 Height (Inches): 1.00 Weight (Pounds): 173 General Appearance: alert EENT: normal ENT inspection Neck: supple Cardiovascular: normal rate Respiratory/Chest: decreased breath sounds Abdomen: normal bowel sounds, non tender, soft Extremities: non-tender Marito Ramires MD Aug 07, 2019 07:11
[2019-08-07 08:00] VITALS: BP 134/90
[2019-08-07] MEDS: Enoxaparin 30mg Inj SUBQ SCH (08:34)
[2019-08-07] MEDS: Pantoprazole Inj IVP SCH (08:34)
--- NOTE | 2019-08-07 09:09 | Surgery Progress Note ---
Surgery Progress Note Subjective Procedure Performed Left internal jugular temporary hemodialysis catheter removal Additional Comments ill appearing no n/v/f/c labs noted exam stable Objective Last 24 Hour Vital Signs Date Time Temp Pulse Resp B/P (MAP) Pulse Ox O2 Delivery O2 Flow Rate FiO2 08/07/19 08:00 30 08/07/19 08:00 Mechanical Ventilator 08/07/19 08:00 98.8 100 21 134/90 (105) 100 08/07/19 07:51 108 08/07/19 07:04 113 30 30 08/07/19 06:30 99 25 08/07/19 04:00 30 08/07/19 04:00 98.6 109 26 147/90 (109) 100 08/07/19 04:00 Mechanical Ventilator 08/07/19 03:56 115 08/07/19 03:19 107 27 30 08/07/19 00:06 117 08/07/19 00:00 97.9 108 29 150/99 (116) 100 08/07/19 00:00 Mechanical Ventilator 08/06/19 22:50 111 28 30 08/06/19 20:00 30 08/06/19 20:00 Mechanical Ventilator 08/06/19 20:00 97.9 92 26 137/89 (105) 100 08/06/19 19:48 90 08/06/19 19:00 107 26 30 08/06/19 16:00 30 08/06/19 16:00 96 08/06/19 16:00 Mechanical Ventilator 08/06/19 16:00 97.7 106 26 139/91 (107) 100 08/06/19 15:20 100 26 30 08/06/19 12:00 Mechanical Ventilator 08/06/19 12:00 30 08/06/19 12:00 98.1 101 26 151/90 (110) 100 08/06/19 11:48 98 08/06/19 11:11 94 26 30 I&O Intake and Output 08/06/19 08/07/19 19:00 07:00 Intake Total 770 ml 710.0 ml Output Total 400 ml 350 ml Balance 370 ml 360.0 ml Free Water 230 ml 60 ml IV Total 110.0 ml Tube Feeding 540 ml 540 ml Stool Total 400 ml 350 ml Dressing: other Wound: other Drains: other Cardiovascular: RSR Respiratory: decreased breath sounds Abdomen: soft, non-tender, present bowel sounds Extremities: no cyanosis Laboratory Tests Test 08/06/19 12:06 08/06/19 17:05 08/06/19 23:27 08/07/19 05:17 POC Whole Blood Glucose 201 MG/DL (74-106) H 166 MG/DL (74-106) H Pending Pending Plan Problems: (1) Suspected COVID-19 virus infection (2) HTN (hypertension) (3) CASSANDRA (acute kidney injury) Assessment & Plan: Needs urgent HD needs access patient okay and consented see note will follow with recs new line placed discussed with team and nephrology HD line functional when checked has TPA now please use appropriately Cathflo used again this flow during dialysis on 430 was low. Will monitor may need line change / plan for HD as per renal may need to take fluid off with HD edema anasarca dressings saturated and changed will monitor cont with HD IJ left line placed for HD given extent of prior line in place. leukocytosis blood cx negative may need to change out line new line okay HD going well Continue HD as tolerated May need pressors for HD as needed (4) Anemia in chronic kidney disease (CKD) (5) Anemia (6) Renal failure (7) Suspected COVID-19 virus infection Assessment & Plan: Pt deconditioned and despite all skin preventions Pt noted to have developed several pressure injuries. . Stable dry eschar noted to clefts of R and L ears. No erythema noted . DTPI noted to L trochanter. Base of injury is maroon in colour with marginal erythema along borders. Partially opened DTPI Sacrum, R and L Buttocks. Base of wound is maroon with two small open wounds L sacrum and L buttocks. Pt has an APM/MOMO Mattress overlay and is being positioned with pillows as per tolerance and within protocols. worsening despite medical efforts will cont to provide therapy Tx.Plan: Apply Cavilon Skin Barrier to both ears Daily and prn. Apply Moisture Barrier Paste to Sacrum,R and L Buttocks. Cover with Optifoam drsgs. Change every 3 days and PRN. Apply Cavilon Skin Barrier to R and L trochanter. Cover each site with Optifoam drsgs.Change every 7 days and PRN. Apply Cavilon Skin Barrier to both heels. Cover each heel with Optifoam drsg. Change every 7 days and prn. Off-load heels with pillow. Reposition at least every 2hours or as tolerated. APM/MOMO Mattress overlay. (8) COVID-19 Assessment & Plan: COVID + c diff negative febrile leukocytosis renal insufficiency see above cont resp care Rx as per ID worsening on vent support now cxr noted on pressors prognosis guarded repeat covid ++ weaning vent and pressors off slowly showing improvement slowly recovering will need trach as unable to wean vent safely [facility] consent obtained s/p trach pending peg worsening on levo max (9) Sepsis Assessment & Plan: worsening leukocytosis febrile on pressors discussed with ID. lines evaluated and clean. he is septic on pressors and needs central access in difficult venous access patient blood cultures negative will monitor temp HD cath out now with permacath left tlc still subclavian needed line c/d/i Yaniv Mast Aug 07, 2019 09:09
--- NOTE | 2019-08-07 09:26 | Pulmonolgy Critical Care Note ---
Critical Care - Asmt/Plan Assessment/Plan: Impression: COVID-19 virus infection Pneumonia Respiratory failure on ventilator, wean as tolerated once off pressors CKD - on HD Hypotension on pressors previously Cardiomegaly Leukocytosis Elevated AST COPD Chronic Kidney Disease - HD H/o Hypertension Worsening anemia sepsis Plan: trach care as is Antibiotics per ID HD per renal monitor vitals AC - weaning trials as able; CPAP as able for now 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 if needed; Monitor lab data nutrition feeds Hemodialysis per Renal impression, plan, and exam edited and reviewed in detail care discussed with key carrier - Objective Last 24 Hour Vital Signs Date Time Temp Pulse Resp B/P (MAP) Pulse Ox O2 Delivery O2 Flow Rate FiO2 08/07/19 08:00 30 08/07/19 08:00 Mechanical Ventilator 08/07/19 08:00 98.8 100 21 134/90 (105) 100 08/07/19 07:51 108 08/07/19 07:04 113 30 30 08/07/19 06:30 99 25 08/07/19 04:00 30 08/07/19 04:00 98.6 109 26 147/90 (109) 100 08/07/19 04:00 Mechanical Ventilator 08/07/19 03:56 115 08/07/19 03:19 107 27 30 08/07/19 00:06 117 08/07/19 00:00 97.9 108 29 150/99 (116) 100 08/07/19 00:00 Mechanical Ventilator 08/06/19 22:50 111 28 30 08/06/19 20:00 30 08/06/19 20:00 Mechanical Ventilator 08/06/19 20:00 97.9 92 26 137/89 (105) 100 08/06/19 19:48 90 08/06/19 19:00 107 26 30 08/06/19 16:00 30 08/06/19 16:00 96 08/06/19 16:00 Mechanical Ventilator 08/06/19 16:00 97.7 106 26 139/91 (107) 100 08/06/19 15:20 100 26 30 08/06/19 12:00 Mechanical Ventilator 08/06/19 12:00 30 08/06/19 12:00 98.1 101 26 151/90 (110) 100 08/06/19 11:48 98 08/06/19 11:11 94 26 30 Objective: WDWN NAD trach reduced breath sounds bilaterally without rhonchi or wheeze [id number] without MRG NABS nontender no HSM no CC mild edema reduced LOC Micro: Microbiology Date/Time Source Procedure Growth Status 08/04/19 14:15 Blood Blood Culture - Preliminary NO GROWTH AFTER 24 HOURS Resulted 08/05/19 12:15 Nasopharynx Coronavirus COVID-19 PCR ([facility]) - Final Complete 08/04/19 21:00 Sputum Gram Stain - Final Complete 08/04/19 21:00 Sputum Culture - Final Staphylococcus Aureus - Mrsa Usual Respiratory Brinda Complete Accucheck: 174 Critical Care - Subjective ROS Limited/Unobtainable: Yes Condition: unchanged EKG Rhythm: Sinus Rhythm FI02: 30 Vent Support Breath Rate: 26 Vent Support Mode: AC Vent Tidal Volume: 500 Sputum Amount: Small PEEP: 5.0 PIP: 26 Tube Feeding Amount: 45 I&O: Intake and Output 08/06/19 08/07/19 19:00 07:00 Intake Total 770 ml 710.0 ml Output Total 400 ml 350 ml Balance 370 ml 360.0 ml Free Water 230 ml 60 ml IV Total 110.0 ml Tube Feeding 540 ml 540 ml Stool Total 400 ml 350 ml ET-Tube: 7.5 ET Position: 24 Elliot Tineo MD Aug 07, 2019 09:26
--- NOTE | 2019-08-07 11:28 | General Progress Note ---
Assessment/Plan Problem List: (1) HTN (hypertension) ICD Codes: I10 - Essential (primary) hypertension SNOMED: 70158557 (2) CASSANDRA (acute kidney injury) ICD Codes: N17.9 - Acute kidney failure, unspecified SNOMED: 0965846, 22020338 (3) Anemia in chronic kidney disease (CKD) ICD Codes: N18.9 - Chronic kidney disease, unspecified; D63.1 - Anemia in chronic kidney disease SNOMED: 586365709 (4) Renal failure ICD Codes: N19 - Unspecified kidney failure SNOMED: 46545049 (5) Respiratory failure requiring intubation ICD Codes: J96.90 - Respiratory failure, unspecified, unspecified whether with hypoxia or hypercapnia; A41.89 - Other specified sepsis SNOMED: 437789306, 808458714 (6) Pneumonia due to COVID-19 virus ICD Codes: U07.1 - COVID-19; J12.89 - Other viral pneumonia SNOMED: 340745174, 220484225 (7) Sepsis due to severe acute respiratory syndrome coronavirus 2 (SARS-CoV-2) ICD Codes: U07.1 - COVID-19; A41.89 - Other specified sepsis SNOMED: 758048872, 630219657 Status: progressing, unchanged, deteriorating Assessment/Plan: trach and peg s/p pna and s/p sepsis diaylsis per renal no change needs placement Subjective ROS Limited/Unobtainable: Yes Allergies: Coded Allergies: No Known Allergies (Unverified , 05/28/19) Objective Last 24 Hour Vital Signs Date Time Temp Pulse Resp B/P (MAP) Pulse Ox O2 Delivery O2 Flow Rate FiO2 08/07/19 10:41 113 32 08/07/19 10:41 100 08/07/19 08:00 30 08/07/19 08:00 Mechanical Ventilator 08/07/19 08:00 98.8 100 21 134/90 (105) 100 08/07/19 07:51 108 08/07/19 07:04 113 30 30 08/07/19 06:30 99 25 08/07/19 04:00 30 08/07/19 04:00 98.6 109 26 147/90 (109) 100 08/07/19 04:00 Mechanical Ventilator 08/07/19 03:56 115 08/07/19 03:19 107 27 30 08/07/19 00:06 117 08/07/19 00:00 97.9 108 29 150/99 (116) 100 08/07/19 00:00 Mechanical Ventilator 08/06/19 22:50 111 28 30 08/06/19 20:00 30 08/06/19 20:00 Mechanical Ventilator 08/06/19 20:00 97.9 92 26 137/89 (105) 100 08/06/19 19:48 90 08/06/19 19:00 107 26 30 08/06/19 16:00 30 08/06/19 16:00 96 08/06/19 16:00 Mechanical Ventilator 08/06/19 16:00 97.7 106 26 139/91 (107) 100 08/06/19 15:20 100 26 30 08/06/19 12:00 Mechanical Ventilator 08/06/19 12:00 30 08/06/19 12:00 98.1 101 26 151/90 (110) 100 08/06/19 11:48 98 Intake and Output 08/06/19 08/07/19 19:00 07:00 Intake Total 770 ml 710.0 ml Output Total 400 ml 350 ml Balance 370 ml 360.0 ml Free Water 230 ml 60 ml IV Total 110.0 ml Tube Feeding 540 ml 540 ml Stool Total 400 ml 350 ml Laboratory Tests 08/06/19 12:06: POC Whole Blood Glucose 201H 08/06/19 17:05: POC Whole Blood Glucose 166H 08/06/19 23:27: POC Whole Blood Glucose [Pending] 08/07/19 05:17: POC Whole Blood Glucose [Pending] Height (Feet): 6 Height (Inches): 1.00 Weight (Pounds): 173 Karishma Mulligan MD Aug 07, 2019 11:28
[2019-08-07] MEDS: Piperacillin/Tazobactam 3.375 GM in NS 110 ML IVPB SCH ×2 (11:37→23:46)
[2019-08-07 12:00] VITALS: BP 141/82
--- NOTE | 2019-08-07 14:06 | Cardiac Electrophysiology PN ---
Assessment/Plan Assessment/Plan 1. NSTEMI type 2. Low level and flat due to renal failure. On Aspirin. EF 60%. 2. S/P Septic shock. On Midodrine 10 tid and Abx. BP high now. DCed Midodrine 3. ESRD, on HD per Dr. Cole. S/P PermCath placement by IR 4. Resp failure due to COVID-19 positive pneumonia. On the Vent with 30% Fio2. S/P Tracheostomy 07/08/19. 5. Dysphagia, S/P PEG 07/13/19 6. COPD. 7. Anemia. JHONY RN Subjective Subjective Transferred to SDU from ICU on the vent via trach. Off pressors. Covid positive x 10. Had one negative Covid . HD pending today Objective Last 24 Hour Vital Signs Date Time Temp Pulse Resp B/P (MAP) Pulse Ox O2 Delivery O2 Flow Rate FiO2 08/07/19 12:00 Mechanical Ventilator 08/07/19 12:00 99.3 110 19 141/82 (101) 100 08/07/19 12:00 30 08/07/19 11:50 115 08/07/19 10:41 113 32 08/07/19 10:41 100 08/07/19 08:00 30 08/07/19 08:00 Mechanical Ventilator 08/07/19 08:00 98.8 100 21 134/90 (105) 100 08/07/19 07:51 108 08/07/19 07:04 113 30 30 08/07/19 06:30 99 25 08/07/19 04:00 30 08/07/19 04:00 98.6 109 26 147/90 (109) 100 08/07/19 04:00 Mechanical Ventilator 08/07/19 03:56 115 08/07/19 03:19 107 27 30 08/07/19 00:06 117 08/07/19 00:00 97.9 108 29 150/99 (116) 100 08/07/19 00:00 Mechanical Ventilator 08/06/19 22:50 111 28 30 08/06/19 20:00 30 08/06/19 20:00 Mechanical Ventilator 08/06/19 20:00 97.9 92 26 137/89 (105) 100 08/06/19 19:48 90 08/06/19 19:00 107 26 30 08/06/19 16:00 30 08/06/19 16:00 96 08/06/19 16:00 Mechanical Ventilator 08/06/19 16:00 97.7 106 26 139/91 (107) 100 08/06/19 15:20 100 26 30 Intake and Output 08/06/19 08/07/19 19:00 07:00 Intake Total 770 ml 710.0 ml Output Total 400 ml 350 ml Balance 370 ml 360.0 ml Free Water 230 ml 60 ml IV Total 110.0 ml Tube Feeding 540 ml 540 ml Stool Total 400 ml 350 ml Laboratory Tests Test 08/06/19 17:05 08/06/19 23:27 08/07/19 05:17 POC Whole Blood Glucose 166 MG/DL (74-106) H Pending Pending Microbiology Date/Time Source Procedure Growth Status 08/04/19 14:15 Blood Blood Culture - Preliminary NO GROWTH AFTER 24 HOURS Resulted 08/05/19 12:15 Nasopharynx Coronavirus COVID-19 PCR ([facility]) - Final Complete 08/04/19 21:00 Sputum Gram Stain - Final Complete 08/04/19 21:00 Sputum Culture - Final Staphylococcus Aureus - Mrsa Usual Respiratory Brinda Complete Objective HEAD AND NECK: No JVD. Tracheostomy in place. Left IJ HD catheter now in place Right IJ PermCath in place LUNGS: Decreased breath sounds. CARDIOVASCULAR: Regular S1 and S2. Tachycardic. ABDOMEN: Soft. PEG in place EXTREMITIES: No pitting edema. Gio Baker MD Aug 07, 2019 14:06
--- NOTE | 2019-08-07 14:15 | Nephrology Progress Note ---
Assessment/Plan Problem List: (1) CASSANDRA (acute kidney injury) (2) Anemia in chronic kidney disease (CKD) (3) HTN (hypertension) (4) COVID-19 Assessment Acute renal failure most likely superimposed on chronic kidney disease Suspected COVID-19 virus infection Possible Pneumonia, lymphopenia, elevated AST Cardiomegaly, possible CHF COPD Hypertension Anemia, most likely related to chronic kidney disease Plan August 06: Patient on dialysis now. Discussed with dialysis nurse. Slight catheter malfunction persist. August 05: Labs reviewed. Dialysis scheduled for tomorrow. Continue per consultants. August 04: No labs done today. Dialyzed yesterday. Check labs tomorrow. Continue per consultants. August 03: Lab reviewed. Due for dialysis today. White blood cell 17,500. August 02: Lab reviewed. Low phosphorus replaced. Hemodialysis ordered for tomorrow. White blood cells over 18,000. August 01: Labs reviewed. Potassium replacement ordered. Remains full code on ventilator via trach. Continue per consultants. July 31: Dialyzed yesterday. No can panel today. Remains full code. Remains on ventilator. Being fed through PEG. Continue per consultants. July 30: Patient due for dialysis today. Labs are reviewed. Remains full code. Status post trach to ventilator. Status post PEG. July 29: Patient dialyzed yesterday. Due for dialysis tomorrow. Remains in ICU. Full code. Status post trach tube to ventilator. Status post PEG. July 28: Due for dialysis today. Labs reviewed. Full code. Patient trached and vented. July 27: Last COVID test negative. COVID test will be repeated tomorrow. Will order dialysis tomorrow. Remains full code. Medication list and labs reviewed. July 26: No labs done today. Dialysis done yesterday. Will check lab tomorrow. Dialysis as needed. July 25: Lab reviewed. Dialysis today. Discussed with RN. July 24: Lab reviewed. Do dialysis tomorrow. Discussed with RN. July 23: Lab reviewed. Dialyzed yesterday. Discussed with RN. Remains full code. Next dialysis July 25. Will check labs tomorrow. July 22: Labs reviewed. Due for dialysis today. Discussed with RN. Watch borderline low blood pressure. Discussed with dialysis nurse. July 21: Today's lab reviewed. Will arrange for dialysis tomorrow. Discussed with RN. Aim to keep the blood pressure above 100 systolic. Continue per consultants. July 20: Patient was dialyzed yesterday. Could not ultrafiltrate much due to low blood pressure. Discussed with SHANIQUE Dick today. No labs drawn today. Continue per consultants. July 19: Due for dialysis today. Discussed with SHANIQUE Dick. Continue per consultants. July 18: Dialyzed July 16. Will order dialysis tomorrow July 19. Continues to be on ventilator through trach. No labs done today. Continue per consultants. July 17: Dialyzed yesterday. Stable from renal standpoint of view. Remains full code. Status post trach on vent. Status post PEG. Continue per consultants. July 16: Dialysis today. Will resume Midodrin to prevent hypotension. Patient remains full code. July 15: Dialyzed yesterday, due for dialysis tomorrow. Labs and medication list reviewed. Continue per consultants. Patient remains full code. COVID-19 detected again. July 14: Patient currently on dialysis. This is continuation of dialysis from yesterday as yesterday's dialysis was cut short due to catheter malfunction. Labs and medication reviewed. Continue per consultants. July 13: Patient currently on hemodialysis. The dialysis catheter which is a intrajugular Kamlesh has poor flow. Will try TPA. Continue per consultants. July 12: Due for PEG today. Due for dialysis tomorrow. Continue per consultants. Discussed with RN. July 11: Plan for dialysis today. Discussed with RN. Data reviewed. July 10: Plan for dialysis tomorrow July 11. Waiting for consent to proceed with PEG. Continue per consultants. Medication reviewed. Labs reviewed. Discussed with RN. July 09: Dialyzed yesterday. Labs reviewed. Medication reviewed. Next hemodialysis July 11. July 08: Patient has tracheostomy now. Connected to ventilator. Due for dialysis today. Continue per consultants. Discussed with SHANIQUE Romero. July 07: Patient is due for tracheostomy today. Patient was last dialyzed July 05. Will order dialysis for tomorrow. July 06: Patient is intubated on ventilator however the plan is to extubate today. Patient was dialysis yesterday July 05. The dialysis time was cut short due to patient's respiratory distress. Only 1 L was removed during dialysis yesterday. Today's lab reviewed. Continue per consultants. Will arrange for dialysis as needed. July 05: Patient due for dialysis today. Remains intubated. Will schedule permacath placement in a.m. blood cultures on July 04 are negative. July 04: Patient was dialyzed yesterday. Due for dialysis tomorrow. Continues to be intubated. After tomorrow's dialysis will order a permacath. July 03: Dialysis is about to be started now Continues to be intubated Will plan to remove the femoral dialysis catheter and exchanged for a new temporary catheter per ID recommendation We will check surveillance blood culture tomorrow July 02: Patient was dialyzed yesterday and due for dialysis tomorrow Stable from renal standpoint W on dialysis Continue per consultants, weaning....... etc. July 01: Dialysis today Other status unchanged June 30: Due for dialysis tomorrow Remains intubated on ventilator Labs and medication reviewed Discussed with RN Stable from renal standpoint of view June 29: Dialyzed yesterday Due for dialysis tomorrow Stable from renal standpoint to view Keeps failing weaning process June 28: Patient due for dialysis today Stable from renal standpoint to view Continue per consultants June 27: Labs reviewed Due due for dialysis June 28 Discussed with SHANIQUE Dick Continue per consultants Remains intubated on ventilator June 26 Labs reviewed Dialyzed yesterday Started on weaning today Continue to monitor renal parameters June 16: On dialysis now Potassium supplement implemented Continue per consultants Next dialysis June 27June 15: Status unchanged Dialyzed yesterday will dialyze again tomorrow Potassium supplements given Discussed with RN June 23: Due dialysis today Status: Remains intubated on ventilator June 22: Status unchanged Dialyzed yesterday and duefordialysistomorrow Serum sodium stable today June 21 Remains intubated on ventilator Due dialysis today Emphasized high sodium bath for dialysis June 20: Remains intubated on ventilator Dialyzed June 19 next dialysis June 21 Serum sodium 128, will give 250 cc 3% saline Remains full code Discussed with RN Iron panel ordered June 19: Discussed with RN. Patient due for dialysis today. Continue pulmonary support. Remains full code. June 18: Patient dialyzed yesterday June 17 Serum sodium improved but still low Arrange for dialysis tomorrow June 19 Continue per consultants June 17: Due for dialysis today Today's lab reviewed, low serum sodium noted, Emphasized on high sodium bath to dialysis nurse Discussed with SHANIQUE Yuen June 16: Dialyzed yesterday Remains intubated Labs reviewed, serum sodium 131 Plan to dialyze tomorrow May 8 with high sodium bath Discussed with SHANIQUE Yuen June 6: Due for dialysis today Labs reviewed Discussed with RN Transfuse 1 unit of packed RBCs today for low hemoglobin of 7.1 June 5: Blood pressure well maintained Receive dialysis June 13 next hemodialysis June 15June 4: Discussed with RN in ICU Patient did not receive proper dialysis yesterday due to dialysis catheter malfunction Catheter to be adjusted today and dialyzed to be resumed today Continue per consultants Positive for COVID 28 June 2: Patient now intubated on mechanical ventilation Discussed with SHANIQUE Yuen, today June 12 Patient received dialysis yesterday June 10 next hemodialysis June 12 Blood pressure better maintained Today's labs reviewed Continue per consultants Previously patient received dialysis last evening June 05, next dialysis June 07 which was incomplete due to patient's hypotension Will start on midodrine for blood pressure support. Meanwhile continue other pressors as needed Previously Patient is doing poorly, septic, white blood cells are rising, Hypotension somewhat improved We will keep n.p.o. , NG tube for medications, and change medication to IV as needed Patient remains full code Monitor vancomycin level Previously: Patient pulled out his femoral catheter yesterday June 03 which was reinserted by Dr. Mast Patient scheduled for dialysis again June 04, which again was not done due to dialysis nurse citing catheter malfunction Meanwhile continue management per ID, pulmonary , and psych. Meanwhile white blood cell count is rising. Patient blood pressure borderline low. Will check ABG Previously May 31 : I believe patient need dialysis treatment He however needs to competency assessment if can make decisions or not I will communicate with Dr. Mulligan Previously: Per pulmonary and ID advice Adjust blood pressure medication Renal diet Anemia work-up 2D echocardiogram refused Kidney ultrasound refused Jules catheter Urine studies Per orders Subjective ROS Limited/Unobtainable: Yes Objective Objective Last 24 Hour Vital Signs Date Time Temp Pulse Resp B/P (MAP) Pulse Ox O2 Delivery O2 Flow Rate FiO2 08/07/19 12:00 Mechanical Ventilator 08/07/19 12:00 99.3 110 19 141/82 (101) 100 08/07/19 12:00 30 08/07/19 11:50 115 08/07/19 10:41 113 32 08/07/19 10:41 100 08/07/19 08:00 30 08/07/19 08:00 Mechanical Ventilator 08/07/19 08:00 98.8 100 21 134/90 (105) 100 08/07/19 07:51 108 08/07/19 07:04 113 30 30 08/07/19 06:30 99 25 08/07/19 04:00 30 08/07/19 04:00 98.6 109 26 147/90 (109) 100 08/07/19 04:00 Mechanical Ventilator 08/07/19 03:56 115 08/07/19 03:19 107 27 30 08/07/19 00:06 117 08/07/19 00:00 97.9 108 29 150/99 (116) 100 08/07/19 00:00 Mechanical Ventilator 08/06/19 22:50 111 28 30 08/06/19 20:00 30 08/06/19 20:00 Mechanical Ventilator 08/06/19 20:00 97.9 92 26 137/89 (105) 100 08/06/19 19:48 90 08/06/19 19:00 107 26 30 08/06/19 16:00 30 08/06/19 16:00 96 08/06/19 16:00 Mechanical Ventilator 08/06/19 16:00 97.7 106 26 139/91 (107) 100 08/06/19 15:20 100 26 30 Intake and Output 08/06/19 08/07/19 19:00 07:00 Intake Total 770 ml 710.0 ml Output Total 400 ml 350 ml Balance 370 ml 360.0 ml Free Water 230 ml 60 ml IV Total 110.0 ml Tube Feeding 540 ml 540 ml Stool Total 400 ml 350 ml Laboratory Tests 08/06/19 17:05: POC Whole Blood Glucose 166H 08/06/19 23:27: POC Whole Blood Glucose [Pending] 08/07/19 05:17: POC Whole Blood Glucose [Pending] Height (Feet): 6 Height (Inches): 1.00 Weight (Pounds): 173 General Appearance: no apparent distress EENT: other - Trach and vent Cardiovascular: tachycardia Respiratory/Chest: decreased breath sounds Abdomen: soft, other - PEG in place Objective No change Mic Cole MD Aug 07, 2019 14:15
[2019-08-07 16:00] VITALS: BP 122/84
[2019-08-07] MEDS ORDERED: NS 275ml ONE ×2 (16:05→21:08)
[2019-08-07] MEDS ORDERED: Tubing IV Secondary IV ONE (16:05)
[2019-08-07 20:00] VITALS: BP 121/79
[2019-08-07] MEDS: Dyna-Hex 2% Top Sol 2oz TOPIC SCH (21:09)
--- NOTE | 2019-08-07 22:25 | Psych Consult Progress Note ---
Psychiatry Progress Note Psychiatry Progress Note Medications Current Medications Medications (Trade) Dose Ordered Sig/Anthony Route PRN Reason Start Time Stop Time Status Last Admin Dose Admin Acetaminophen (Tylenol) 650 mg Q4H PRN NG For Pain 08/04/19 21:38 09/03/19 21:37 08/04/19 22:38 Chlorhexidine Gluconate (Michelle-Hex 2%) 1 applic DAILY@2000 TOPIC 08/05/19 20:00 09/05/19 19:59 08/07/19 21:09 Dextrose (Dextrose 50%) 25 ml Q30M PRN IV Hypoglycemia 08/04/19 22:00 09/18/19 19:29 Dextrose (Dextrose 50%) 50 ml Q30M PRN IV Hypoglycemia 08/04/19 22:00 09/18/19 19:29 Enoxaparin Sodium (Lovenox) 30 mg DAILY SUBQ 08/05/19 09:00 08/27/19 08:59 08/07/19 08:34 Epoetin Aftab (Epoetin Aftab(ESRD on dialysis)) 10,000 unit FRI-FRI-FRI SUBQ 08/06/19 21:00 08/31/19 20:59 08/06/19 20:18 Haloperidol Lactate 5 mg/ Dextrose 56 ml @ 224 mls/hr Q6H PRN IVPB Agitation 08/04/19 21:38 09/18/19 21:37 Hydralazine HCl (Apresoline) 10 mg Q4H PRN IV Blood pressure over 160 systol 08/04/19 21:39 11/02/19 21:38 Insulin Aspart (NovoLOG) EVERY 6 HOURS SUBQ 08/05/19 00:00 09/19/19 00:00 08/07/19 18:00 Lorazepam (Ativan 2mg/ml 1ml) 0.5 mg Q2H PRN IV For Anxiety 08/04/19 21:39 08/11/19 21:38 Metoclopramide HCl (Reglan) 5 mg Q8HR IVP 08/05/19 06:00 09/04/19 05:59 08/07/19 21:09 Pantoprazole (Protonix) 40 mg DAILY IVP 08/05/19 09:00 08/26/19 08:59 08/07/19 08:34 Piperacillin Sod/ Tazobactam Sod 3.375 gm/Sodium Chloride 110 ml @ 27.5 mls/hr Q12H IVPB 08/04/19 23:00 08/11/19 10:59 08/07/19 11:37 Vancomycin HCl ([facility] pharmacy to dose) 1 ea DAILY PRN MISC Per rx protocol 08/05/19 09:00 08/19/19 10:44 Neurological/Psychiatric: Reports: anxiety, depressed, emotional problems Allergies: Coded Allergies: No Known Allergies (Unverified , 05/28/19) Objective Data Height (Feet): 6 Height (Inches): 1.00 Weight (Pounds): 173 Behavior Mannerisms: poor eye contact Mental Status Exam - Affect: flat Mental Status Exam - Thought P: no abnormalities Mental Status Exam - Suicidal: not present Assessment/Plan Status: progressing, unchanged, deteriorating Assessment/Plan: The pt benefits from restraints cont psychotropic meds dw nurse Guicho Pimentel MD Aug 07, 2019 22:25
[2019-08-08] VITALS: BP 104/66
[2019-08-08 04:00] VITALS: BP 141/83
[2019-08-08] MEDS: Metoclopramide 10mg/2ml Inj IVP SCH ×3 (06:01→22:16)
[2019-08-08] MEDS: NovoLOG Insulin Flexpen SUBQ SCH ×3 (06:12→18:26)
--- NOTE | 2019-08-08 07:54 | General Progress Note ---
Assessment/Plan Status: progressing, unchanged, deteriorating Assessment/Plan: 1. Diabetes. 2. Hypertension. 3. Coronary artery disease. 4. COPD. 5. Psychiatric disorder with schizophrenia. 6. History of hepatitis C. 7. HLP. 8. Chronic kidney disease, now with acute renal failure. 9. Anemia. 10. Hypothyroidism. 11. Spinal stenosis. 12. Constipation. 13. GERD. 14. COVID positive HD per nephrology fu labs icu care s/p PEG GTF monitor for residuals Subjective ROS Limited/Unobtainable: No Allergies: Coded Allergies: No Known Allergies (Unverified , 05/28/19) Objective Last 24 Hour Vital Signs Date Time Temp Pulse Resp B/P (MAP) Pulse Ox O2 Delivery O2 Flow Rate FiO2 08/08/19 07:06 120 26 30 08/08/19 06:30 122 24 08/08/19 04:00 117 08/08/19 04:00 Mechanical Ventilator 08/08/19 04:00 30 08/08/19 04:00 99.3 120 20 141/83 (102) 99 08/08/19 03:30 121 26 30 08/08/19 00:00 99.9 117 20 104/66 (79) 98 08/08/19 00:00 121 08/08/19 00:00 Mechanical Ventilator 08/08/19 00:00 30 08/07/19 23:11 117 26 30 08/07/19 20:00 Mechanical Ventilator 08/07/19 20:00 30 08/07/19 20:00 98.9 122 20 121/79 (93) 99 08/07/19 20:00 123 08/07/19 19:10 121 26 30 08/07/19 16:00 Mechanical Ventilator 08/07/19 16:00 30 08/07/19 16:00 98.8 121 20 122/84 (97) 100 08/07/19 15:31 122 08/07/19 15:07 126 36 30 08/07/19 12:00 Mechanical Ventilator 08/07/19 12:00 99.3 110 19 141/82 (101) 100 08/07/19 12:00 30 08/07/19 11:50 115 08/07/19 10:41 113 32 08/07/19 10:41 100 08/07/19 08:00 30 08/07/19 08:00 Mechanical Ventilator 08/07/19 08:00 98.8 100 21 134/90 (105) 100 Intake and Output 08/07/19 08/08/19 19:00 07:00 Intake Total 290.0 ml 605.0 ml Output Total 1000 ml Balance -710.0 ml 605.0 ml IV Total 110.0 ml 110.0 ml Tube Feeding 180 ml 495 ml Hemodialysis UF 1000 ml Laboratory Tests 08/07/19 23:35: POC Whole Blood Glucose [Pending] Height (Feet): 6 Height (Inches): 1.00 Weight (Pounds): 175 General Appearance: no apparent distress EENT: PERRL/EOMI Neck: supple Cardiovascular: normal rate Respiratory/Chest: decreased breath sounds Abdomen: normal bowel sounds, non tender, soft Extremities: non-tender Marito Ramires MD Aug 08, 2019 07:54
[2019-08-08 08:00] VITALS: BP 139/80
--- NOTE | 2019-08-08 08:27 | Pulmonolgy Critical Care Note ---
Critical Care - Asmt/Plan Assessment/Plan: Impression: COVID-19 virus infection Pneumonia Respiratory failure on ventilator, wean as tolerated once off pressors CKD - on HD Hypotension on pressors previously Cardiomegaly Leukocytosis Elevated AST COPD Chronic Kidney Disease - HD H/o Hypertension Worsening anemia sepsis sinus tachycardia Plan: trach care as is Antibiotics per ID HD per renal monitor vitals AC -full support for now and monitor RR anxiolytics if needed 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 if needed; Monitor lab data nutrition feeds Hemodialysis per Renal impression, plan, and exam edited and reviewed in detail care discussed with rotary engraver - Objective Last 24 Hour Vital Signs Date Time Temp Pulse Resp B/P (MAP) Pulse Ox O2 Delivery O2 Flow Rate FiO2 08/08/19 07:06 120 26 30 08/08/19 06:30 122 24 08/08/19 04:00 117 08/08/19 04:00 Mechanical Ventilator 08/08/19 04:00 30 08/08/19 04:00 99.3 120 20 141/83 (102) 99 08/08/19 03:30 121 26 30 08/08/19 00:00 99.9 117 20 104/66 (79) 98 08/08/19 00:00 121 08/08/19 00:00 Mechanical Ventilator 08/08/19 00:00 30 08/07/19 23:11 117 26 30 08/07/19 20:00 Mechanical Ventilator 08/07/19 20:00 30 08/07/19 20:00 98.9 122 20 121/79 (93) 99 08/07/19 20:00 123 08/07/19 19:10 121 26 30 08/07/19 16:00 Mechanical Ventilator 08/07/19 16:00 30 08/07/19 16:00 98.8 121 20 122/84 (97) 100 08/07/19 15:31 122 08/07/19 15:07 126 36 30 08/07/19 12:00 Mechanical Ventilator 08/07/19 12:00 99.3 110 19 141/82 (101) 100 08/07/19 12:00 30 08/07/19 11:50 115 08/07/19 10:41 113 32 08/07/19 10:41 100 Objective: WDWN NAD trach reduced breath sounds bilaterally without rhonchi or wheeze [id number] tachy without MRG NABS nontender no HSM no CC mild edema reduced LOC Micro: Microbiology Date/Time Source Procedure Growth Status 08/05/19 12:15 Nasopharynx Coronavirus COVID-19 PCR ([facility]) - Final Complete Accucheck: 173 Critical Care - Subjective ROS Limited/Unobtainable: Yes Condition: critical EKG Rhythm: Sinus Tachycardia FI02: 30 Vent Support Breath Rate: 26 Vent Support Mode: AC Vent Tidal Volume: 500 Sputum Amount: Small PEEP: 5.0 PIP: 34 Tube Feeding Amount: 45 I&O: Intake and Output 08/07/19 08/08/19 19:00 07:00 Intake Total 290.0 ml 605.0 ml Output Total 1000 ml Balance -710.0 ml 605.0 ml IV Total 110.0 ml 110.0 ml Tube Feeding 180 ml 495 ml Hemodialysis UF 1000 ml ET-Tube: 7.5 ET Position: 24 Elliot Tineo MD Aug 08, 2019 08:27
[2019-08-08] MEDS: Pantoprazole Inj IVP SCH (09:00)
[2019-08-08] MEDS: Enoxaparin 30mg Inj SUBQ SCH (09:03)
--- NOTE | 2019-08-08 09:09 | Nephrology Progress Note ---
Assessment/Plan Problem List: (1) CASSANDRA (acute kidney injury) (2) Anemia in chronic kidney disease (CKD) (3) HTN (hypertension) (4) COVID-19 Assessment Acute renal failure most likely superimposed on chronic kidney disease Suspected COVID-19 virus infection Possible Pneumonia, lymphopenia, elevated AST Cardiomegaly, possible CHF COPD Hypertension Anemia, most likely related to chronic kidney disease Plan August 07: Dialyzed yesterday. No labs drawn today. Will check labs tomorrow. Continue per consultants. August 06: Patient on dialysis now. Discussed with dialysis nurse. Slight catheter malfunction persist. August 05: Labs reviewed. Dialysis scheduled for tomorrow. Continue per consultants. August 04: No labs done today. Dialyzed yesterday. Check labs tomorrow. Continue per consultants. August 03: Lab reviewed. Due for dialysis today. White blood cell 17,500. August 02: Lab reviewed. Low phosphorus replaced. Hemodialysis ordered for tomorrow. White blood cells over 18,000. August 01: Labs reviewed. Potassium replacement ordered. Remains full code on ventilator via trach. Continue per consultants. July 31: Dialyzed yesterday. No can panel today. Remains full code. Remains on ventilator. Being fed through PEG. Continue per consultants. July 30: Patient due for dialysis today. Labs are reviewed. Remains full code. Status post trach to ventilator. Status post PEG. July 29: Patient dialyzed yesterday. Due for dialysis tomorrow. Remains in ICU. Full code. Status post trach tube to ventilator. Status post PEG. July 28: Due for dialysis today. Labs reviewed. Full code. Patient trached and vented. July 27: Last COVID test negative. COVID test will be repeated tomorrow. Will order dialysis tomorrow. Remains full code. Medication list and labs reviewed. July 26: No labs done today. Dialysis done yesterday. Will check lab tomorrow. Dialysis as needed. July 25: Lab reviewed. Dialysis today. Discussed with RN. July 24: Lab reviewed. Do dialysis tomorrow. Discussed with RN. July 23: Lab reviewed. Dialyzed yesterday. Discussed with RN. Remains full code. Next dialysis July 25. Will check labs tomorrow. July 22: Labs reviewed. Due for dialysis today. Discussed with RN. Watch borderline low blood pressure. Discussed with dialysis nurse. July 21: Today's lab reviewed. Will arrange for dialysis tomorrow. Discussed with RN. Aim to keep the blood pressure above 100 systolic. Continue per consultants. July 20: Patient was dialyzed yesterday. Could not ultrafiltrate much due to low blood pressure. Discussed with SHANIQUE Dick today. No labs drawn today. Continue per consultants. July 19: Due for dialysis today. Discussed with SHANIQUE Dick. Continue per consultants. July 18: Dialyzed July 16. Will order dialysis tomorrow July 19. Continues to be on ventilator through trach. No labs done today. Continue per consultants. July 17: Dialyzed yesterday. Stable from renal standpoint of view. Remains full code. Status post trach on vent. Status post PEG. Continue per consultants. July 16: Dialysis today. Will resume Midodrin to prevent hypotension. Patient remains full code. July 15: Dialyzed yesterday, due for dialysis tomorrow. Labs and medication list reviewed. Continue per consultants. Patient remains full code. COVID-19 detected again. July 14: Patient currently on dialysis. This is continuation of dialysis from yesterday as yesterday's dialysis was cut short due to catheter malfunction. Labs and medication reviewed. Continue per consultants. July 13: Patient currently on hemodialysis. The dialysis catheter which is a intrajugular Kamlesh has poor flow. Will try TPA. Continue per consultants. July 12: Due for PEG today. Due for dialysis tomorrow. Continue per consultants. Discussed with RN. July 11: Plan for dialysis today. Discussed with RN. Data reviewed. July 10: Plan for dialysis tomorrow July 11. Waiting for consent to proceed with PEG. Continue per consultants. Medication reviewed. Labs reviewed. Discussed with RN. July 09: Dialyzed yesterday. Labs reviewed. Medication reviewed. Next hemodialysis July 11. July 08: Patient has tracheostomy now. Connected to ventilator. Due for dialysis today. Continue per consultants. Discussed with SHANIQUE Romero. July 07: Patient is due for tracheostomy today. Patient was last dialyzed July 05. Will order dialysis for tomorrow. July 06: Patient is intubated on ventilator however the plan is to extubate today. Patient was dialysis yesterday July 05. The dialysis time was cut short due to patient's respiratory distress. Only 1 L was removed during dialysis yesterday. Today's lab reviewed. Continue per consultants. Will arrange for dialysis as needed. July 05: Patient due for dialysis today. Remains intubated. Will schedule permacath placement in a.m. blood cultures on July 04 are negative. July 04: Patient was dialyzed yesterday. Due for dialysis tomorrow. Continues to be intubated. After tomorrow's dialysis will order a permacath. July 03: Dialysis is about to be started now Continues to be intubated Will plan to remove the femoral dialysis catheter and exchanged for a new temporary catheter per ID recommendation We will check surveillance blood culture tomorrow July 02: Patient was dialyzed yesterday and due for dialysis tomorrow Stable from renal standpoint W on dialysis Continue per consultants, weaning....... etc. July 01: Dialysis today Other status unchanged June 30: Due for dialysis tomorrow Remains intubated on ventilator Labs and medication reviewed Discussed with SHANIQUE Stable from renal standpoint of view June 29: Dialyzed yesterday Due for dialysis tomorrow Stable from renal standpoint to view Keeps failing weaning process June 28: Patient due for dialysis today Stable from renal standpoint to view Continue per consultants June 27: Labs reviewed Due due for dialysis June 28 Discussed with SHANIQUE Dick Continue per consultants Remains intubated on ventilator June 26 Labs reviewed Dialyzed yesterday Started on weaning today Continue to monitor renal parameters June 25: On dialysis now Potassium supplement implemented Continue per consultants Next dialysis June 27June 15: Status unchanged Dialyzed yesterday will dialyze again tomorrow Potassium supplements given Discussed with RN June 14: Due dialysis today Status: Remains intubated on ventilator June 22: Status unchanged Dialyzed yesterday and duefordialysistomorrow Serum sodium stable today June 21 Remains intubated on ventilator Due dialysis today Emphasized high sodium bath for dialysis June 20: Remains intubated on ventilator Dialyzed June 19 next dialysis June 21 Serum sodium 128, will give 250 cc 3% saline Remains full code Discussed with RN Iron panel ordered June 19: Discussed with RN. Patient due for dialysis today. Continue pulmonary support. Remains full code. June 18: Patient dialyzed yesterday June 17 Serum sodium improved but still low Arrange for dialysis tomorrow June 19 Continue per consultants June 17: Due for dialysis today Today's lab reviewed, low serum sodium noted, Emphasized on high sodium bath to dialysis nurse Discussed with SHANIQUE Yuen May 7: Dialyzed yesterday Remains intubated Labs reviewed, serum sodium 131 Plan to dialyze tomorrow June 17 with high sodium bath Discussed with SHANIQUE Yuen June 6: Due for dialysis today Labs reviewed Discussed with RN Transfuse 1 unit of packed RBCs today for low hemoglobin of 7.1 June 5: Blood pressure well maintained Receive dialysis June 13 next hemodialysis June 15June 4: Discussed with RN in ICU Patient did not receive proper dialysis yesterday due to dialysis catheter malfunction Catheter to be adjusted today and dialyzed to be resumed today Continue per consultants Positive for COVID 28 June 2: Patient now intubated on mechanical ventilation Discussed with SHANIQUE Yuen, today June 12 Patient received dialysis yesterday June 10 next hemodialysis June 12 Blood pressure better maintained Today's labs reviewed Continue per consultants Previously patient received dialysis last evening June 05, next dialysis June 07 which was incomplete due to patient's hypotension Will start on midodrine for blood pressure support. Meanwhile continue other pressors as needed Previously Patient is doing poorly, septic, white blood cells are rising, Hypotension somewhat improved We will keep n.p.o. , NG tube for medications, and change medication to IV as needed Patient remains full code Monitor vancomycin level Previously: Patient pulled out his femoral catheter yesterday June 03 which was reinserted by Dr. Mast Patient scheduled for dialysis again June 04, which again was not done due to dialysis nurse citing catheter malfunction Meanwhile continue management per ID, pulmonary , and psych. Meanwhile white blood cell count is rising. Patient blood pressure borderline low. Will check ABG Previously May 31 : I believe patient need dialysis treatment He however needs to competency assessment if can make decisions or not I will communicate with Dr. Mulligan Previously: Per pulmonary and ID advice Adjust blood pressure medication Renal diet Anemia work-up 2D echocardiogram refused Kidney ultrasound refused Jules catheter Urine studies Per orders Subjective ROS Limited/Unobtainable: Yes Objective Objective Last 24 Hour Vital Signs Date Time Temp Pulse Resp B/P (MAP) Pulse Ox O2 Delivery O2 Flow Rate FiO2 08/08/19 08:00 30 08/08/19 07:06 120 26 30 08/08/19 06:30 122 24 08/08/19 04:00 117 08/08/19 04:00 Mechanical Ventilator 08/08/19 04:00 30 08/08/19 04:00 99.3 120 20 141/83 (102) 99 08/08/19 03:30 121 26 30 08/08/19 00:00 99.9 117 20 104/66 (79) 98 08/08/19 00:00 121 08/08/19 00:00 Mechanical Ventilator 08/08/19 00:00 30 08/07/19 23:11 117 26 30 08/07/19 20:00 Mechanical Ventilator 08/07/19 20:00 30 08/07/19 20:00 98.9 122 20 121/79 (93) 99 08/07/19 20:00 123 08/07/19 19:10 121 26 30 08/07/19 16:00 Mechanical Ventilator 08/07/19 16:00 30 08/07/19 16:00 98.8 121 20 122/84 (97) 100 08/07/19 15:31 122 08/07/19 15:07 126 36 30 08/07/19 12:00 Mechanical Ventilator 08/07/19 12:00 99.3 110 19 141/82 (101) 100 08/07/19 12:00 30 08/07/19 11:50 115 08/07/19 10:41 113 32 08/07/19 10:41 100 Intake and Output 08/07/19 08/08/19 19:00 07:00 Intake Total 290.0 ml 605.0 ml Output Total 1000 ml Balance -710.0 ml 605.0 ml IV Total 110.0 ml 110.0 ml Tube Feeding 180 ml 495 ml Hemodialysis UF 1000 ml Current Medications Medications (Trade) Dose Ordered Sig/Anthony Route PRN Reason Start Time Stop Time Status Last Admin Dose Admin Acetaminophen (Tylenol) 650 mg Q4H PRN NG For Pain 08/04/19 21:38 09/03/19 21:37 08/04/19 22:38 Chlorhexidine Gluconate (Michelle-Hex 2%) 1 applic DAILY@1999 TOPIC 08/05/19 20:00 09/05/19 19:59 08/07/19 21:09 Dextrose (Dextrose 50%) 25 ml Q30M PRN IV Hypoglycemia 08/04/19 22:00 09/18/19 19:29 Dextrose (Dextrose 50%) 50 ml Q30M PRN IV Hypoglycemia 08/04/19 22:00 09/18/19 19:29 Enoxaparin Sodium (Lovenox) 30 mg DAILY SUBQ 08/05/19 09:00 08/27/19 08:59 08/08/19 09:03 Epoetin Aftab (Epoetin Aftab(ESRD on dialysis)) 10,000 unit FRI-FRI-FRI SUBQ 08/06/19 21:00 08/31/19 20:59 08/06/19 20:18 Haloperidol Lactate 5 mg/ Dextrose 56 ml @ 224 mls/hr Q6H PRN IVPB Agitation 08/04/19 21:38 09/18/19 21:37 Hydralazine HCl (Apresoline) 10 mg Q4H PRN IV Blood pressure over 160 systol 08/04/19 21:39 11/02/19 21:38 Insulin Aspart (NovoLOG) EVERY 6 HOURS SUBQ 08/05/19 00:00 09/19/19 00:00 08/08/19 06:12 Lorazepam (Ativan 2mg/ml 1ml) 0.5 mg Q2H PRN IV For Anxiety 08/04/19 21:39 08/11/19 21:38 Metoclopramide HCl (Reglan) 5 mg Q8HR IVP 08/05/19 06:00 09/04/19 05:59 08/08/19 06:01 Pantoprazole (Protonix) 40 mg DAILY IVP 08/05/19 09:00 08/26/19 08:59 08/08/19 09:00 Piperacillin Sod/ Tazobactam Sod 3.375 gm/Sodium Chloride 110 ml @ 27.5 mls/hr Q12H IVPB 08/04/19 23:00 08/11/19 10:59 08/07/19 23:46 Vancomycin HCl (Vanco pharmacy to dose) 1 ea DAILY PRN MISC Per rx protocol 08/05/19 09:00 08/19/19 10:44 Laboratory Tests 08/07/19 23:35: POC Whole Blood Glucose [Pending] 08/08/19 07:30: Random Vancomycin Level [Pending] Height (Feet): 6 Height (Inches): 1.00 Weight (Pounds): 175 General Appearance: no apparent distress EENT: other - Trach and vent Cardiovascular: tachycardia Respiratory/Chest: decreased breath sounds Abdomen: distended, other - PEG in place Objective No change Mic Cole MD Aug 08, 2019 09:09
[2019-08-08] MEDS: Piperacillin/Tazobactam 3.375 GM in NS 110 ML IVPB SCH ×2 (11:35→22:16)
[2019-08-08 12:00] VITALS: BP 105/67
[2019-08-08] MEDS: Acetaminophen 650mg/20.3ml NG PRN ×2 (12:15→17:08)
--- NOTE | 2019-08-08 13:52 | Infectious Diseases Prog Note ---
Assessment/Plan Assessment/Plan IMPRESSION: 1. COVID19 pneumonia Positive: 05/27, 05/31 , 06/05, 06/09 ,5, 06/19, 06/23, 06/27, 07/03, 07/15, 07/29 Negative: 07/26, 08/04 2. MRSA carrier. 3. Chronic kidney disease , end-stage renal disease. 4. COPD. 5. Hypertension. 6. Anemia. 7. Hypothyroidism. 8. Hyperlipidemia. 9. Major depression. 10. Leukocytosis 11. Hypotension 12. Hepatitis C 13. Hyperuricemia 14. Diarrhea 15. septic shock 16. Leukocytosis worsening 17. Pneumonia with Staph aureus ( MRSA) 18. Bacteremia with Staph coagulase negative RECOMMENDATIONS: Continue IV Vancomycin & Zosyn Will f/u cultures Subjective ROS Limited/Unobtainable: Yes Constitutional: Reports: fever, other - Ea=778.2 Neurologic: Reports: other - on restraint Allergies: Coded Allergies: No Known Allergies (Unverified , 05/28/19) Objective Last 24 Hour Vital Signs Date Time Temp Pulse Resp B/P (MAP) Pulse Ox O2 Delivery O2 Flow Rate FiO2 08/08/19 12:45 98.0 08/08/19 12:00 30 08/08/19 12:00 100.2 118 21 105/67 (80) 100 08/08/19 10:51 121 26 30 08/08/19 10:49 100 08/08/19 08:00 99.0 122 20 139/80 (99) 100 08/08/19 08:00 Mechanical Ventilator 08/08/19 08:00 30 08/08/19 07:24 117 08/08/19 07:06 120 26 30 08/08/19 06:30 122 24 08/08/19 04:00 117 08/08/19 04:00 Mechanical Ventilator 08/08/19 04:00 30 08/08/19 04:00 99.3 120 20 141/83 (102) 99 08/08/19 03:30 121 26 30 08/08/19 00:00 99.9 117 20 104/66 (79) 98 08/08/19 00:00 121 08/08/19 00:00 Mechanical Ventilator 08/08/19 00:00 30 08/07/19 23:11 117 26 30 08/07/19 20:00 Mechanical Ventilator 08/07/19 20:00 30 08/07/19 20:00 98.9 122 20 121/79 (93) 99 08/07/19 20:00 123 08/07/19 19:10 121 26 30 08/07/19 16:00 Mechanical Ventilator 08/07/19 16:00 30 08/07/19 16:00 98.8 121 20 122/84 (97) 100 08/07/19 15:31 122 08/07/19 15:07 126 36 30 Height (Feet): 6 Height (Inches): 1.00 Weight (Pounds): 175 HEENT: mucous membranes moist, status post trach Respiratory/Chest: other - on ventilator Cardiovascular: tachycardia Abdomen: soft, non tender, other - GT feeding Extremities: no edema Neurologic/Psychiatric: disoriented Laboratory Tests Test 08/07/19 23:35 08/08/19 07:30 POC Whole Blood Glucose Pending Random Vancomycin Level 21.0 ug/mL Current Medications Medications (Trade) Dose Ordered Sig/Anthony Route PRN Reason Start Time Stop Time Status Last Admin Dose Admin Acetaminophen (Tylenol) 650 mg Q4H PRN NG For Pain 08/04/19 21:38 09/03/19 21:37 08/08/19 12:15 Chlorhexidine Gluconate (Michelle-Hex 2%) 1 applic DAILY@2000 TOPIC 08/05/19 20:00 09/05/19 19:59 08/07/19 21:09 Dextrose (Dextrose 50%) 25 ml Q30M PRN IV Hypoglycemia 08/04/19 22:00 09/18/19 19:29 Dextrose (Dextrose 50%) 50 ml Q30M PRN IV Hypoglycemia 08/04/19 22:00 09/18/19 19:29 Enoxaparin Sodium (Lovenox) 30 mg DAILY SUBQ 08/05/19 09:00 08/27/19 08:59 08/08/19 09:03 Epoetin Aftab (Epoetin Aftab(ESRD on dialysis)) 10,000 unit FRI-FRI-FRI SUBQ 08/06/19 21:00 08/31/19 20:59 08/06/19 20:18 Haloperidol Lactate 5 mg/ Dextrose 56 ml @ 224 mls/hr Q6H PRN IVPB Agitation 08/04/19 21:38 09/18/19 21:37 Hydralazine HCl (Apresoline) 10 mg Q4H PRN IV Blood pressure over 160 systol 08/04/19 21:39 11/02/19 21:38 Insulin Aspart (NovoLOG) EVERY 6 HOURS SUBQ 08/05/19 00:00 09/19/19 00:00 08/08/19 12:18 Lorazepam (Ativan 2mg/ml 1ml) 0.5 mg Q2H PRN IV For Anxiety 08/04/19 21:39 08/11/19 21:38 Metoclopramide HCl (Reglan) 5 mg Q8HR IVP 08/05/19 06:00 09/04/19 05:59 08/08/19 06:01 Pantoprazole (Protonix) 40 mg DAILY IVP 08/05/19 09:00 08/26/19 08:59 08/08/19 09:00 Piperacillin Sod/ Tazobactam Sod 3.375 gm/Sodium Chloride 110 ml @ 27.5 mls/hr Q12H IVPB 08/04/19 23:00 08/11/19 10:59 08/08/19 11:35 Vancomycin HCl (Vanco pharmacy to dose) 1 ea DAILY PRN MISC Per rx protocol 08/05/19 09:00 08/19/19 10:44 Ted Leyva MD Aug 08, 2019 13:51
[2019-08-08 16:36] VITALS: BP 123/75
[2019-08-08 20:00] VITALS: BP 128/82
[2019-08-08] MEDS: Dyna-Hex 2% Top Sol 2oz TOPIC SCH (20:16)
--- NOTE | 2019-08-08 20:24 | Surgery Progress Note ---
Surgery Progress Note Subjective Procedure Performed Left internal jugular temporary hemodialysis catheter removal Additional Comments no acute events Objective Last 24 Hour Vital Signs Date Time Temp Pulse Resp B/P (MAP) Pulse Ox O2 Delivery O2 Flow Rate FiO2 08/08/19 19:30 116 26 30 08/08/19 17:38 98.0 08/08/19 16:36 100.0 109 18 123/75 (91) 100 08/08/19 16:00 30 08/08/19 16:00 Mechanical Ventilator 08/08/19 15:33 110 26 30 08/08/19 15:20 112 08/08/19 12:00 Mechanical Ventilator 08/08/19 12:00 30 08/08/19 12:00 100.2 118 21 105/67 (80) 100 08/08/19 11:45 118 08/08/19 10:51 121 26 30 08/08/19 10:49 100 08/08/19 08:00 99.0 122 20 139/80 (99) 100 08/08/19 08:00 Mechanical Ventilator 08/08/19 08:00 30 08/08/19 07:24 117 08/08/19 07:06 120 26 30 08/08/19 06:30 122 24 08/08/19 04:00 117 08/08/19 04:00 Mechanical Ventilator 08/08/19 04:00 30 08/08/19 04:00 99.3 120 20 141/83 (102) 99 08/08/19 03:30 121 26 30 08/08/19 00:00 99.9 117 20 104/66 (79) 98 08/08/19 00:00 121 08/08/19 00:00 Mechanical Ventilator 08/08/19 00:00 30 08/07/19 23:11 117 26 30 I&O Intake and Output 08/07/19 08/08/19 19:00 07:00 Intake Total 290.0 ml 650.0 ml Output Total 1000 ml Balance -710.0 ml 650.0 ml IV Total 110.0 ml 110.0 ml Tube Feeding 180 ml 540 ml Hemodialysis UF 1000 ml Dressing: other Wound: other Drains: other Cardiovascular: RSR Respiratory: decreased breath sounds Abdomen: soft, non-tender, present bowel sounds Extremities: no cyanosis Laboratory Tests Test 08/07/19 23:35 08/08/19 07:30 POC Whole Blood Glucose Pending Random Vancomycin Level 21.0 ug/mL Plan Problems: (1) Suspected COVID-19 virus infection (2) HTN (hypertension) (3) CASSANDRA (acute kidney injury) Assessment & Plan: Needs urgent HD needs access patient okay and consented see note will follow with recs new line placed discussed with team and nephrology HD line functional when checked has TPA now please use appropriately Cathflo used again this flow during dialysis on 430 was low. Will monitor may need line change 5/4 plan for HD as per renal may need to take fluid off with HD edema anasarca dressings saturated and changed will monitor cont with HD IJ left line placed for HD given extent of prior line in place. leukocytosis blood cx negative may need to change out line new line okay HD going well Continue HD as tolerated May need pressors for HD as needed (4) Anemia in chronic kidney disease (CKD) (5) Anemia (6) Renal failure (7) Suspected COVID-19 virus infection Assessment & Plan: Pt deconditioned and despite all skin preventions Pt noted to have developed several pressure injuries. . Stable dry eschar noted to clefts of R and L ears. No erythema noted . DTPI noted to L trochanter. Base of injury is maroon in colour with marginal erythema along borders. Partially opened DTPI Sacrum, R and L Buttocks. Base of wound is maroon with two small open wounds L sacrum and L buttocks. Pt has an APM/MOMO Mattress overlay and is being positioned with pillows as per tolerance and within protocols. worsening despite medical efforts will cont to provide therapy Tx.Plan: Apply Cavilon Skin Barrier to both ears Daily and prn. Apply Moisture Barrier Paste to Sacrum,R and L Buttocks. Cover with Optifoam drsgs. Change every 3 days and PRN. Apply Cavilon Skin Barrier to R and L trochanter. Cover each site with Optifoam drsgs.Change every 7 days and PRN. Apply Cavilon Skin Barrier to both heels. Cover each heel with Optifoam drsg. Change every 7 days and prn. Off-load heels with pillow. Reposition at least every 2hours or as tolerated. APM/MOMO Mattress overlay. (8) COVID-19 Assessment & Plan: COVID + c diff negative febrile leukocytosis renal insufficiency see above cont resp care Rx as per ID worsening on vent support now cxr noted on pressors prognosis guarded repeat covid ++ weaning vent and pressors off slowly showing improvement slowly recovering will need trach as unable to wean vent safely called and spoke with country conservatorship. consent obtained s/p trach pending peg worsening on levo max (9) Sepsis Assessment & Plan: worsening leukocytosis febrile on pressors discussed with ID. lines evaluated and clean. he is septic on pressors and needs central access in difficult venous access patient blood cultures negative will monitor temp HD cath out now with permacath left tlc still subclavian needed line c/d/i Yaniv Mast Aug 08, 2019 20:24
--- NOTE | 2019-08-08 21:04 | General Progress Note ---
Assessment/Plan Problem List: (1) HTN (hypertension) ICD Codes: I10 - Essential (primary) hypertension SNOMED: 34587783 (2) CASSANDRA (acute kidney injury) ICD Codes: N17.9 - Acute kidney failure, unspecified SNOMED: 5600863, 26709096 (3) Anemia in chronic kidney disease (CKD) ICD Codes: N18.9 - Chronic kidney disease, unspecified; D63.1 - Anemia in chronic kidney disease SNOMED: 846400536 (4) Renal failure ICD Codes: N19 - Unspecified kidney failure SNOMED: 40438949 (5) Respiratory failure requiring intubation ICD Codes: J96.90 - Respiratory failure, unspecified, unspecified whether with hypoxia or hypercapnia; A41.89 - Other specified sepsis SNOMED: 971060286, 973272917 (6) Pneumonia due to COVID-19 virus ICD Codes: U07.1 - COVID-19; J12.89 - Other viral pneumonia SNOMED: 034314351, 334951335 (7) Sepsis due to severe acute respiratory syndrome coronavirus 2 (SARS-CoV-2) ICD Codes: U07.1 - COVID-19; A41.89 - Other specified sepsis SNOMED: 128024335, 521727113 Status: progressing, unchanged, deteriorating Assessment/Plan: trach and peg prn pressor sepsis no change afebrile s/p pna and s/p sepsis diaylsis per renal n Subjective ROS Limited/Unobtainable: Yes Allergies: Coded Allergies: No Known Allergies (Unverified , 05/28/19) Objective Last 24 Hour Vital Signs Date Time Temp Pulse Resp B/P (MAP) Pulse Ox O2 Delivery O2 Flow Rate FiO2 08/08/19 19:30 116 26 30 08/08/19 17:38 98.0 08/08/19 16:36 100.0 109 18 123/75 (91) 100 08/08/19 16:00 30 08/08/19 16:00 Mechanical Ventilator 08/08/19 15:33 110 26 30 08/08/19 15:20 112 08/08/19 12:00 Mechanical Ventilator 08/08/19 12:00 30 08/08/19 12:00 100.2 118 21 105/67 (80) 100 08/08/19 11:45 118 08/08/19 10:51 121 26 30 6/28/20 10:49 100 08/08/19 08:00 99.0 122 20 139/80 (99) 100 08/08/19 08:00 Mechanical Ventilator 08/08/19 08:00 30 08/08/19 07:24 117 08/08/19 07:06 120 26 30 08/08/19 06:30 122 24 08/08/19 04:00 117 08/08/19 04:00 Mechanical Ventilator 08/08/19 04:00 30 08/08/19 04:00 99.3 120 20 141/83 (102) 99 08/08/19 03:30 121 26 30 08/08/19 00:00 99.9 117 20 104/66 (79) 98 08/08/19 00:00 121 08/08/19 00:00 Mechanical Ventilator 08/08/19 00:00 30 08/07/19 23:11 117 26 30 Intake and Output 08/07/19 08/08/19 19:00 07:00 Intake Total 290.0 ml 650.0 ml Output Total 1000 ml Balance -710.0 ml 650.0 ml IV Total 110.0 ml 110.0 ml Tube Feeding 180 ml 540 ml Hemodialysis UF 1000 ml Laboratory Tests 08/07/19 23:35: POC Whole Blood Glucose [Pending] 08/08/19 07:30: Random Vancomycin Level 21.0 Height (Feet): 6 Height (Inches): 1.00 Weight (Pounds): 175 Karishma Mulligan MD Aug 08, 2019 21:04
--- NOTE | 2019-08-08 21:08 | Hematology/Onc Progress Note ---
Assessment/Plan Assessment/Plan Assessment and Recs: # Anemia of chronic disease, likely related ot underlying kidney disease has COIVD19++++++ --> hgb trend 9-->8-->7.3-->7.9-->6.8->9.5-->10->8.3-->7.7-->7.1-->8.9->8.8->7.7 -->8.1 ->7.9-->7.7 -->8.2-->8.1 -->7.9-->8.5 -->9->9.2-->9.5-->10.7 -->9.8--> 10.2-->11.8 -->11.9-->8.8 ->9.4->9-->8.3 -->8.5-->9.4->9.8-->9-->8.3 --> transfuse as needed, hgb goal >7 --> no evidence of hemolysis --> peripheral smear has been reviewed --> epogen started 3 x a week ==>> transfuse 06/08, 06/15 # Leukocytosis likely related to suspected COVID-19 virus infection --> completed plaquenil --> trend smear as needed --> wbc trend: 4-->11-->14.5-->21-->26-->21->24--.28-->23-->19-->16.2-->21--> 11.2 -->12.5-->12.3-->12.4-->18.5-->18.5-->17->13-->18.2-->22.2-->25-->17.4-->17 -->14.2-->14-->16-->15.5-->9->17 --> pulm is aware --> on abx cefepime/vanc->zosyn/vanc-->dom/vanc-->dom-->levaquin/cefepime--> vanc --> pressors as needed --> 06/27 covid 19++ --> pressors as needed in icu # Thrombocytopenia/Lymphopenia --> likely related to covid19 --> plt 129k-->186k-->251-->285-->384 -->430-->539-->515-->447-->451-->404-->544 -->244 # Respiratory failure with covid19+ --> s/p vent/trach --> weaning # Possible Pneumonia --> abx completed --> 07/13 cxr: Improved right lung infiltrates. # Cardiomegaly # Transaminitis with Elevated AST # COPD # Chronic Kidney Disease --> per renal hd --> s/p right femoral cath 07/02 # Hypertension # peg # Dvt ppx lovenox Appreciate consultation and ernesto Rn Subjective Allergies: Coded Allergies: No Known Allergies (Unverified , 05/28/19) All Systems: reviewed and negative except above Subjective 06/01 nv, extremely agitated, not allowing labs draws, no night sweats, cbc ordered 06/02 confused, restraints, on abx and plaquenil, hgb 7.9, nrb 15 L 06/03 is with nonrebreather, but not compliant, remains confused 06/05 no bleeding, labs noted, no major bleeding, otherwise comfortable 06/06 labs reviewed, no bleeding, meds noted, no night sweats, on levo and nonrebreather 06/07 labs noted, no bleeding, meds reviewed, no bleeding, wbc higher 06/08 to get 2 units prbc, no night sweats, meds reviewed 06/09 is on cefepime and vanc, labs noted, ernesto Rn, no bleeding 06/10 no major changes, labs reviewed, wbc 28k, on abx, cefepime 06/12 remains in icu, labs noted, no night sweats or bleeding 06/13 sluggish pupils, remains agitated, per psych, no bleding, on vent, wbc sitll high 06/14 still confused, remains on vent, with ng, running nepro, on pressors 06/15 icu, febrile, non verbal, hgb 7.1, blood pending, completed plaq 06/16 remains in the icu, nonverbal, plan for hd tomorrow, ernesto rn 06/17 in icu, on pressor, nonverbal, on abx, no bleeding 06/19 no bleeding, nonverbal in icu, hgb is 7.7 06/20 on zosyn, tube feeds, vent, labs noted, in icu, nv 06/21 gettng hd as per renal, in icu, nv, no bleeding, tfs 06/22 icu, cxr with slight improvement, cooling blanket, weaning today 06/23 wewaning, in icu, on vent, abx, and pressors as needed, labs noted 06/24 failed weaning, off abx, completed plaquenil, hgb 8.1 06/26 icu, weaning for this am, afebrile, hgb 8 06/27 in icu, remains comotose, weaning started on peep, no night sweats 06/28 weaning today, off abx, restraints, no distress, h/h stable 06/29 covid 19+, failed weaning, no blood transfusion needed 06/30 icu, on vent, labs reviewed, no distress 07/01 in icu, may need trach, remains on hd per renal, labs noted 07/02 s/p right fem cath, failed wean, no new orders, h/h stable 07/03 is somewhat more responsive, on abx, no bleeding, weaning and HD today 07/04 hd as per renal, weaning off vent, no bleeding today 07/05 obtunded, no bleding overnight, with hd for tomorrow noted, vanc 07/08 no events, remains with trach/vent, ernesto Rn, no bleeding, cbc is noted 07/09 no overnight events, peg for friday pending consent 07/10 off pressors, vent, restraints, labs reviewed 07/11 no acute events is on pressors, intubated, agitated still 07/12 is resting comfortably, no bleeding, emds reviewed and noted 07/13 icu, no events, trach, cxr reviewed, 07/14 is onv ent, tachypneic and tachycardic, labs noted 07/15 remains confused, intubated, ernesto Rn, no bleeding 07/17 icu, cxr improving infiltrates, levo gtt, airborne/contact isolation 07/18 is on broad spectrum abx, is on levaquin and cefepime, wbc 16 agitated 07/19 icu, levo gtt, cxr unchanged, tachy, hd thursday 07/20 sedated, safety restraints, labs reviewed 07/21 hd was done yesterday, lower pressor requirements, wbc is worse, on abx 07/22 icu, meds and labs reviewed, vent, no distress 07/24 on vent, in icu, labs noted, remains agitated, and confused 07/25 remains obtunded, on vent, on pressor, hgb 9, wbc elev 07/26 icu, levo gtt, vent, iv abx, nonverbal 07/27 failed weaning, labs reviewed, repeat covid swab pending 07/28 labs are noted, no bleeding, on vent/trach gtube feeds dw rn 07/29 iuc, restraints, no new changes, vent 07/31 is asleep, comfortable, no events, labs reviewed, restraints+ 08/01 no events, agitated, no bleeding, meds noted, on gtube feeds 08/02 remains on vent, no bleeding, wbc higher 19, hgb 9, on abx 08/03 labs noted, on vent, no bleeding, wbc 17, hgb better 08/04 labs reviewed, no bleeding, does not require prbc, on vent 08/05 more alert, is on trach, vent, no major events, no bleeding, peg+ 08/07 no bleeding no chills, no night sweats, is on vent/trach Objective Objective Current Medications Medications (Trade) Dose Ordered Sig/Anthony Route PRN Reason Start Time Stop Time Status Last Admin Dose Admin Acetaminophen (Tylenol) 650 mg Q4H PRN NG For Pain 08/04/19 21:38 09/03/19 21:37 08/08/19 17:08 Chlorhexidine Gluconate (Michelle-Hex 2%) 1 applic DAILY@1999 TOPIC 08/05/19 20:00 09/05/19 19:59 08/08/19 20:16 Dextrose (Dextrose 50%) 25 ml Q30M PRN IV Hypoglycemia 08/04/19 22:00 09/18/19 19:29 Dextrose (Dextrose 50%) 50 ml Q30M PRN IV Hypoglycemia 08/04/19 22:00 09/18/19 19:29 Enoxaparin Sodium (Lovenox) 30 mg DAILY SUBQ 08/05/19 09:00 08/27/19 08:59 08/08/19 09:03 Epoetin Aftab (Epoetin Aftab(ESRD on dialysis)) 10,000 unit FRI-FRI-FRI SUBQ 08/06/19 21:00 08/31/19 20:59 08/06/19 20:18 Haloperidol Lactate 5 mg/ Dextrose 56 ml @ 224 mls/hr Q6H PRN IVPB Agitation 08/04/19 21:38 09/18/19 21:37 Hydralazine HCl (Apresoline) 10 mg Q4H PRN IV Blood pressure over 160 systol 08/04/19 21:39 11/02/19 21:38 Insulin Aspart (NovoLOG) EVERY 6 HOURS SUBQ 08/05/19 00:00 09/19/19 00:00 08/08/19 18:26 Lorazepam (Ativan 2mg/ml 1ml) 0.5 mg Q2H PRN IV For Anxiety 08/04/19 21:39 08/11/19 21:38 Metoclopramide HCl (Reglan) 5 mg Q8HR IVP 08/05/19 06:00 09/04/19 05:59 08/08/19 14:58 Pantoprazole (Protonix) 40 mg DAILY IVP 08/05/19 09:00 08/26/19 08:59 08/08/19 09:00 Piperacillin Sod/ Tazobactam Sod 3.375 gm/Sodium Chloride 110 ml @ 27.5 mls/hr Q12H IVPB 08/04/19 23:00 08/11/19 10:59 08/08/19 11:35 Vancomycin HCl (Vanco pharmacy to dose) 1 ea DAILY PRN MISC Per rx protocol 08/05/19 09:00 08/19/19 10:44 Last 24 Hour Vital Signs Date Time Temp Pulse Resp B/P (MAP) Pulse Ox O2 Delivery O2 Flow Rate FiO2 08/08/19 19:30 116 26 30 08/08/19 17:38 98.0 08/08/19 16:36 100.0 109 18 123/75 (91) 100 08/08/19 16:00 30 08/08/19 16:00 Mechanical Ventilator 08/08/19 15:33 110 26 30 08/08/19 15:20 112 08/08/19 12:00 Mechanical Ventilator 08/08/19 12:00 30 08/08/19 12:00 100.2 118 21 105/67 (80) 100 08/08/19 11:45 118 08/08/19 10:51 121 26 30 08/08/19 10:49 100 08/08/19 08:00 99.0 122 20 139/80 (99) 100 08/08/19 08:00 Mechanical Ventilator 08/08/19 08:00 30 08/08/19 07:24 117 08/08/19 07:06 120 26 30 08/08/19 06:30 122 24 08/08/19 04:00 117 08/08/19 04:00 Mechanical Ventilator 08/08/19 04:00 30 08/08/19 04:00 99.3 120 20 141/83 (102) 99 08/08/19 03:30 121 26 30 08/08/19 00:00 99.9 117 20 104/66 (79) 98 08/08/19 00:00 121 08/08/19 00:00 Mechanical Ventilator 08/08/19 00:00 30 08/07/19 23:11 117 26 30 08/07/19 20:00 Mechanical Ventilator 08/07/19 20:00 30 08/07/19 20:00 98.9 122 20 121/79 (93) 99 08/07/19 20:00 123 08/07/19 19:10 121 26 30 08/07/19 16:00 Mechanical Ventilator 08/07/19 16:00 30 08/07/19 16:00 98.8 121 20 122/84 (97) 100 08/07/19 15:31 122 08/07/19 15:07 126 36 30 08/07/19 12:00 Mechanical Ventilator 08/07/19 12:00 99.3 110 19 141/82 (101) 100 08/07/19 12:00 30 08/07/19 11:50 115 08/07/19 10:41 113 32 08/07/19 10:41 100 08/07/19 08:00 30 08/07/19 08:00 Mechanical Ventilator 08/07/19 08:00 98.8 100 21 134/90 (105) 100 08/07/19 07:51 108 08/07/19 07:04 113 30 30 08/07/19 06:30 99 25 08/07/19 04:00 30 08/07/19 04:00 98.6 109 26 147/90 (109) 100 08/07/19 04:00 Mechanical Ventilator 08/07/19 03:56 115 08/07/19 03:19 107 27 30 08/07/19 00:06 117 08/07/19 00:00 97.9 108 29 150/99 (116) 100 08/07/19 00:00 Mechanical Ventilator 08/06/19 22:50 111 28 30 Intake and Output 08/07/19 08/08/19 19:00 07:00 Intake Total 290.0 ml 650.0 ml Output Total 1000 ml Balance -710.0 ml 650.0 ml IV Total 110.0 ml 110.0 ml Tube Feeding 180 ml 540 ml Hemodialysis UF 1000 ml Labs Test 08/05/19 23:07 08/06/19 03:50 08/06/19 05:25 08/06/19 12:06 POC Whole Blood Glucose 175 MG/DL (74-106) 177 MG/DL (74-106) 201 MG/DL (74-106) White Blood Count 11.6 K/UL (4.8-10.8) Red Blood Count 3.47 M/UL (4.70-6.10) Hemoglobin 9.9 G/DL (14.2-18.0) Hematocrit 34.0 % (42.0-52.0) Mean Corpuscular Volume 98 FL (80-99) Mean Corpuscular Hemoglobin 28.4 PG (27.0-31.0) Mean Corpuscular Hemoglobin Concent 29.0 G/DL (32.0-36.0) Red Cell Distribution Width 18.2 % (11.6-14.8) Platelet Count 372 K/UL (150-450) Mean Platelet Volume 7.2 FL (6.5-10.1) Neutrophils (%) (Auto) 75.6 % (45.0-75.0) Lymphocytes (%) (Auto) 13.5 % (20.0-45.0) Monocytes (%) (Auto) 5.6 % (1.0-10.0) Eosinophils (%) (Auto) 4.5 % (0.0-3.0) Basophils (%) (Auto) 0.9 % (0.0-2.0) Sodium Level 145 MMOL/L (136-145) Potassium Level 3.3 MMOL/L (3.5-5.1) Chloride Level 105 MMOL/L (98-107) Carbon Dioxide Level 26 MMOL/L (21-32) Anion Gap 14 mmol/L (5-15) Blood Urea Nitrogen 64 mg/dL (7-18) Creatinine 7.9 MG/DL (0.55-1.30) Estimat Glomerular Filtration Rate 6.9 mL/min (>60) Glucose Level 190 MG/DL (74-106) Calcium Level 9.3 MG/DL (8.5-10.1) Phosphorus Level 2.5 MG/DL (2.5-4.9) Magnesium Level 2.5 MG/DL (1.8-2.4) Total Bilirubin 0.4 MG/DL (0.2-1.0) Aspartate Amino Transf (AST/SGOT) 23 U/L (15-37) Alanine Aminotransferase (ALT/SGPT) 12 U/L (12-78) Alkaline Phosphatase 130 U/L (46-116) C-Reactive Protein, Quantitative 7.0 mg/dL (0.00-0.90) Total Protein 8.4 G/DL (6.4-8.2) Albumin 2.8 G/DL (3.4-5.0) Globulin 5.6 g/dL Albumin/Globulin Ratio 0.5 (1.0-2.7) Test 08/06/19 17:05 08/06/19 23:27 08/07/19 05:17 08/07/19 23:35 POC Whole Blood Glucose 166 MG/DL (74-106) Test 08/08/19 07:30 Random Vancomycin Level 21.0 ug/mL Height (Feet): 6 Height (Inches): 1.00 Weight (Pounds): 175 Objective General: nv, confused, sedated Heent: bilateral eye normal inspection, bilateral eye PERRL ++Ng Respiratory: normal breath sounds, no respiratory distress, intubated/vent +++ trach+++ Cardiovascular: regular rate, rhythm, no edema Gastrointestinal: normal inspection, soft, non-distended, peg+ Rectal: deferred Musculoskeletal: normal range of motion, non-tender, R fem cath++ Neurologic: alert, motor strength/tone normal, sensory intact, responsive, speech normal Skin: Decubitus/Ulcer - See RN skin exam. : Greg Gracia MD Aug 08, 2019 21:08
[2019-08-09] VITALS: BP 132/76
[2019-08-09] MEDS: LORazepam Inj 2mg/ml 1ml IV PRN (02:20)
[2019-08-09 04:00] VITALS: BP 137/86
[2019-08-09] MEDS: Metoclopramide 10mg/2ml Inj IVP SCH ×3 (05:16→21:59)
[2019-08-09 05:21] LABS: BASOPHILS % (AUTO) 0.4 % (0.0-2.0); EOSINOPHILS % (AUTO) 0.7 % (0.0-3.0); HEMATOCRIT 40.6 % (42.0-52.0); HEMOGLOBIN 11.6 G/DL (14.2-18.0); MEAN CORPUSCULAR VOLUME 98 FL (80-99); NEUTROPHILS % (AUTO) 80.9 % (45.0-75.0); PLATELET COUNT 404 K/UL (150-450); RED BLOOD COUNT 4.15 M/UL (4.70-6.10); RED CELL DISTRIBUTION WIDTH 17.9 % (11.6-14.8)
[2019-08-09] MEDS: NovoLOG Insulin Flexpen SUBQ SCH ×5 (05:21→23:32)
[2019-08-09 05:39] LABS: ALANINE AMINOTRANSFERASE 16 U/L (12-78); ALBUMIN/GLOBULIN RATIO 0.4 (1.0-2.7); ALKALINE PHOSPHATASE 138 U/L (46-116); ANION GAP 14 mmol/L (5-15); ASPARTATE AMINO TRANSFERASE 22 U/L (15-37); BILIRUBIN,TOTAL 0.4 MG/DL (0.2-1.0); BLOOD UREA NITROGEN 58 mg/dL (7-18); CALCIUM 9.7 MG/DL (8.5-10.1); CARBON DIOXIDE 28 MMOL/L (21-32); CHLORIDE 102 MMOL/L (98-107); CREATININE 7.8 MG/DL (0.55-1.30); POTASSIUM 3.4 MMOL/L (3.5-5.1); SODIUM 144 MMOL/L (136-145)
[2019-08-09 06:08] LABS: PHOSPHORUS 2.4 MG/DL (2.5-4.9)
[2019-08-09 08:00] VITALS: BP 117/80
[2019-08-09] MEDS: Pantoprazole Inj IVP SCH (08:39)
[2019-08-09] MEDS: Acetaminophen 650mg/20.3ml GT PRN ×3 (08:40→23:29)
[2019-08-09] MEDS: Enoxaparin 30mg Inj SUBQ SCH (08:41)
--- NOTE | 2019-08-09 09:58 | General Progress Note ---
Assessment/Plan Status: progressing, unchanged, deteriorating Assessment/Plan: 1. Diabetes. 2. Hypertension. 3. Coronary artery disease. 4. COPD. 5. Psychiatric disorder with schizophrenia. 6. History of hepatitis C. 7. HLP. 8. Chronic kidney disease, now with acute renal failure. 9. Anemia. 10. Hypothyroidism. 11. Spinal stenosis. 12. Constipation. 13. GERD. 14. COVID positive HD per nephrology fu labs icu care s/p PEG GTF monitor for residuals Subjective ROS Limited/Unobtainable: No Allergies: Coded Allergies: No Known Allergies (Unverified , 05/28/19) Objective Last 24 Hour Vital Signs Date Time Temp Pulse Resp B/P (MAP) Pulse Ox O2 Delivery O2 Flow Rate FiO2 08/09/19 09:10 100.1 08/09/19 08:00 101.7 127 18 117/80 (92) 100 08/09/19 08:00 131 08/09/19 07:25 127 26 30 08/09/19 06:30 130 22 08/09/19 04:00 99.9 133 18 137/86 (103) 100 08/09/19 04:00 30 08/09/19 04:00 Mechanical Ventilator 08/09/19 04:00 131 08/09/19 03:30 133 26 30 08/09/19 00:00 Mechanical Ventilator 08/09/19 00:00 129 08/09/19 00:00 125 26 30 08/09/19 00:00 99.5 125 18 132/76 (94) 99 08/09/19 00:00 30 08/08/19 20:00 30 08/08/19 20:00 99.8 120 18 128/82 (97) 100 08/08/19 20:00 118 08/08/19 20:00 Mechanical Ventilator 08/08/19 19:30 116 26 30 08/08/19 17:38 98.0 08/08/19 16:36 100.0 109 18 123/75 (91) 100 08/08/19 16:00 30 08/08/19 16:00 Mechanical Ventilator 08/08/19 15:33 110 26 30 08/08/19 15:20 112 08/08/19 12:00 Mechanical Ventilator 08/08/19 12:00 30 08/08/19 12:00 100.2 118 21 105/67 (80) 100 6/28/20 11:45 118 08/08/19 10:51 121 26 30 08/08/19 10:49 100 Intake and Output 08/08/19 08/09/19 19:00 07:00 Intake Total 600 ml 615.0 ml Balance 600 ml 615.0 ml Free Water 150 ml 100 ml IV Total 110.0 ml Tube Feeding 450 ml 405 ml Laboratory Tests 08/09/19 03:42: White Blood Count 9.0, Red Blood Count 4.15L, Hemoglobin 11.6L, Hematocrit 40.6L , Mean Corpuscular Volume 98, Mean Corpuscular Hemoglobin 27.9, Mean Corpuscular Hemoglobin Concent 28.5L, Red Cell Distribution Width 17.9H, Platelet Count 404, Mean Platelet Volume 7.1, Neutrophils (%) (Auto) 80.9H, Lymphocytes (%) (Auto) 12.0L, Monocytes (%) (Auto) 6.0, Eosinophils (%) (Auto) 0.7, Basophils (%) (Auto) 0.4, Sodium Level 144, Potassium Level 3.4L, Chloride Level 102, Carbon Dioxide Level 28, Anion Gap 14, Blood Urea Nitrogen 58H, Creatinine 7.8H, Estimat Glomerular Filtration Rate 7.0, Glucose Level 250H, Calcium Level 9.7, Phosphorus Level 2.4L, Magnesium Level 2.6H, Total Bilirubin 0.4, Aspartate Amino Transf (AST/SGOT) 22, Alanine Aminotransferase (ALT/SGPT) 16, Alkaline Phosphatase 138H, C-Reactive Protein, Quantitative 10.8H, Pro-B- Type Natriuretic Peptide [id number], Total Protein 9.7H, Albumin 3.0L, Globulin 6.7 , Albumin/Globulin Ratio 0.4L 08/09/19 05:15: POC Whole Blood Glucose [Pending] Height (Feet): 6 Height (Inches): 1.00 Weight (Pounds): 173 General Appearance: alert EENT: normal ENT inspection Neck: supple Cardiovascular: normal rate Respiratory/Chest: decreased breath sounds Abdomen: normal bowel sounds, non tender, soft Extremities: non-tender Marito Ramires MD Aug 09, 2019 09:58
[2019-08-09] MEDS: Piperacillin/Tazobactam 3.375 GM in NS 110 ML IVPB SCH ×2 (11:06→23:28)
--- NOTE | 2019-08-09 11:38 | Nephrology Progress Note ---
Assessment/Plan Problem List: (1) CASSANDRA (acute kidney injury) (2) Anemia in chronic kidney disease (CKD) (3) HTN (hypertension) (4) COVID-19 Assessment Acute renal failure most likely superimposed on chronic kidney disease Suspected COVID-19 virus infection Possible Pneumonia, lymphopenia, elevated AST Cardiomegaly, possible CHF COPD Hypertension Anemia, most likely related to chronic kidney disease Plan August 08: Lab reviewed. Hemodialysis scheduled for tomorrow. August 07: Dialyzed yesterday. No labs drawn today. Will check labs tomorrow. Continue per consultants. August 06: Patient on dialysis now. Discussed with dialysis nurse. Slight catheter malfunction persist. August 05: Labs reviewed. Dialysis scheduled for tomorrow. Continue per consultants. August 04: No labs done today. Dialyzed yesterday. Check labs tomorrow. Continue per consultants. August 03: Lab reviewed. Due for dialysis today. White blood cell 17,500. August 02: Lab reviewed. Low phosphorus replaced. Hemodialysis ordered for tomorrow. White blood cells over 18,000. August 01: Labs reviewed. Potassium replacement ordered. Remains full code on ventilator via trach. Continue per consultants. July 31: Dialyzed yesterday. No can panel today. Remains full code. Remains on ventilator. Being fed through PEG. Continue per consultants. July 30: Patient due for dialysis today. Labs are reviewed. Remains full code. Status post trach to ventilator. Status post PEG. July 29: Patient dialyzed yesterday. Due for dialysis tomorrow. Remains in ICU. Full code. Status post trach tube to ventilator. Status post PEG. July 28: Due for dialysis today. Labs reviewed. Full code. Patient trached and vented. July 27: Last COVID test negative. COVID test will be repeated tomorrow. Will order dialysis tomorrow. Remains full code. Medication list and labs reviewed. July 26: No labs done today. Dialysis done yesterday. Will check lab tomorrow. Dialysis as needed. July 25: Lab reviewed. Dialysis today. Discussed with RN. July 24: Lab reviewed. Do dialysis tomorrow. Discussed with RN. July 23: Lab reviewed. Dialyzed yesterday. Discussed with RN. Remains full code. Next dialysis July 25. Will check labs tomorrow. July 22: Labs reviewed. Due for dialysis today. Discussed with RN. Watch borderline low blood pressure. Discussed with dialysis nurse. July 21: Today's lab reviewed. Will arrange for dialysis tomorrow. Discussed with RN. Aim to keep the blood pressure above 100 systolic. Continue per consultants. July 20: Patient was dialyzed yesterday. Could not ultrafiltrate much due to low blood pressure. Discussed with SHAINQUE Dick today. No labs drawn today. Continue per consultants. July 19: Due for dialysis today. Discussed with SHANIQUE Dick. Continue per consultants. July 18: Dialyzed July 16. Will order dialysis tomorrow July 19. Continues to be on ventilator through trach. No labs done today. Continue per consultants. July 17: Dialyzed yesterday. Stable from renal standpoint of view. Remains full code. Status post trach on vent. Status post PEG. Continue per consultants. July 16: Dialysis today. Will resume Midodrin to prevent hypotension. Patient remains full code. July 15: Dialyzed yesterday, due for dialysis tomorrow. Labs and medication list reviewed. Continue per consultants. Patient remains full code. COVID-19 detected again. July 14: Patient currently on dialysis. This is continuation of dialysis from yesterday as yesterday's dialysis was cut short due to catheter malfunction. Labs and medication reviewed. Continue per consultants. July 13: Patient currently on hemodialysis. The dialysis catheter which is a intrajugular Kamlesh has poor flow. Will try TPA. Continue per consultants. July 12: Due for PEG today. Due for dialysis tomorrow. Continue per consultants. Discussed with RN. July 11: Plan for dialysis today. Discussed with RN. Data reviewed. July 10: Plan for dialysis tomorrow July 11. Waiting for consent to proceed with PEG. Continue per consultants. Medication reviewed. Labs reviewed. Discussed with RN. July 09: Dialyzed yesterday. Labs reviewed. Medication reviewed. Next hemodialysis July 11. July 08: Patient has tracheostomy now. Connected to ventilator. Due for dialysis today. Continue per consultants. Discussed with SHANIQUE Romero. July 07: Patient is due for tracheostomy today. Patient was last dialyzed July 05. Will order dialysis for tomorrow. July 06: Patient is intubated on ventilator however the plan is to extubate today. Patient was dialysis yesterday July 05. The dialysis time was cut short due to patient's respiratory distress. Only 1 L was removed during dialysis yesterday. Today's lab reviewed. Continue per consultants. Will arrange for dialysis as needed. July 05: Patient due for dialysis today. Remains intubated. Will schedule permacath placement in a.m. blood cultures on July 04 are negative. July 04: Patient was dialyzed yesterday. Due for dialysis tomorrow. Continues to be intubated. After tomorrow's dialysis will order a permacath. July 03: Dialysis is about to be started now Continues to be intubated Will plan to remove the femoral dialysis catheter and exchanged for a new temporary catheter per ID recommendation We will check surveillance blood culture tomorrow July 02: Patient was dialyzed yesterday and due for dialysis tomorrow Stable from renal standpoint W on dialysis Continue per consultants, weaning....... etc. July 01: Dialysis today Other status unchanged June 30: Due for dialysis tomorrow Remains intubated on ventilator Labs and medication reviewed Discussed with RN Stable from renal standpoint of view June 29: Dialyzed yesterday Due for dialysis tomorrow Stable from renal standpoint to view Keeps failing weaning process June 28: Patient due for dialysis today Stable from renal standpoint to view Continue per consultants June 27: Labs reviewed Due due for dialysis June 28 Discussed with SHANIQUE Dick Continue per consultants Remains intubated on ventilator June 26 Labs reviewed Dialyzed yesterday Started on weaning today Continue to monitor renal parameters June 25: On dialysis now Potassium supplement implemented Continue per consultants Next dialysis June 27June 15: Status unchanged Dialyzed yesterday will dialyze again tomorrow Potassium supplements given Discussed with RN June 14: Due dialysis today Status: Remains intubated on ventilator June 22: Status unchanged Dialyzed yesterday and duefordialysistomorrow Serum sodium stable today June 21 Remains intubated on ventilator Due dialysis today Emphasized high sodium bath for dialysis June 20: Remains intubated on ventilator Dialyzed June 19 next dialysis June 21 Serum sodium 128, will give 250 cc 3% saline Remains full code Discussed with RN Iron panel ordered June 19: Discussed with RN. Patient due for dialysis today. Continue pulmonary support. Remains full code. June 18: Patient dialyzed yesterday June 17 Serum sodium improved but still low Arrange for dialysis tomorrow June 19 Continue per consultants June 17: Due for dialysis today Today's lab reviewed, low serum sodium noted, Emphasized on high sodium bath to dialysis nurse Discussed with RN Alpa June 7: Dialyzed yesterday Remains intubated Labs reviewed, serum sodium 131 Plan to dialyze tomorrow June 17 with high sodium bath Discussed with SHANIQUE Yuen June 6: Due for dialysis today Labs reviewed Discussed with RN Transfuse 1 unit of packed RBCs today for low hemoglobin of 7.1 June 5: Blood pressure well maintained Receive dialysis June 13 next hemodialysis June 15June 4: Discussed with RN in ICU Patient did not receive proper dialysis yesterday due to dialysis catheter malfunction Catheter to be adjusted today and dialyzed to be resumed today Continue per consultants Positive for COVID 28 June 2: Patient now intubated on mechanical ventilation Discussed with SHANIQUE Yuen, today June 12 Patient received dialysis yesterday June 10 next hemodialysis June 12 Blood pressure better maintained Today's labs reviewed Continue per consultants Previously patient received dialysis last evening June 05, next dialysis June 07 which was incomplete due to patient's hypotension Will start on midodrine for blood pressure support. Meanwhile continue other pressors as needed Previously Patient is doing poorly, septic, white blood cells are rising, Hypotension somewhat improved We will keep n.p.o. , NG tube for medications, and change medication to IV as needed Patient remains full code Monitor vancomycin level Previously: Patient pulled out his femoral catheter yesterday June 03 which was reinserted by Dr. Mast Patient scheduled for dialysis again June 04, which again was not done due to dialysis nurse citing catheter malfunction Meanwhile continue management per ID, pulmonary , and psych. Meanwhile white blood cell count is rising. Patient blood pressure borderline low. Will check ABG Previously May 31 : I believe patient need dialysis treatment He however needs to competency assessment if can make decisions or not I will communicate with Dr. Mulligan Previously: Per pulmonary and ID advice Adjust blood pressure medication Renal diet Anemia work-up 2D echocardiogram refused Kidney ultrasound refused Jules catheter Urine studies Per orders Subjective ROS Limited/Unobtainable: Yes Objective Objective Last 24 Hour Vital Signs Date Time Temp Pulse Resp B/P (MAP) Pulse Ox O2 Delivery O2 Flow Rate FiO2 08/09/19 11:20 117 26 30 08/09/19 09:10 100.1 08/09/19 08:00 Mechanical Ventilator 08/09/19 08:00 30 08/09/19 08:00 101.7 127 18 117/80 (92) 100 08/09/19 08:00 131 08/09/19 07:25 127 26 30 08/09/19 06:30 130 22 08/09/19 04:00 99.9 133 18 137/86 (103) 100 08/09/19 04:00 30 08/09/19 04:00 Mechanical Ventilator 08/09/19 04:00 131 08/09/19 03:30 133 26 30 08/09/19 00:00 Mechanical Ventilator 08/09/19 00:00 129 08/09/19 00:00 125 26 30 08/09/19 00:00 99.5 125 18 132/76 (94) 99 08/09/19 00:00 30 08/08/19 20:00 30 08/08/19 20:00 99.8 120 18 128/82 (97) 100 08/08/19 20:00 118 08/08/19 20:00 Mechanical Ventilator 08/08/19 19:30 116 26 30 08/08/19 17:38 98.0 08/08/19 16:36 100.0 109 18 123/75 (91) 100 08/08/19 16:00 30 08/08/19 16:00 Mechanical Ventilator 08/08/19 15:33 110 26 30 08/08/19 15:20 112 08/08/19 12:00 Mechanical Ventilator 08/08/19 12:00 30 08/08/19 12:00 100.2 118 21 105/67 (80) 100 08/08/19 11:45 118 Intake and Output 08/08/19 08/09/19 18:59 06:59 Intake Total 600 ml 660.0 ml Balance 600 ml 660.0 ml Free Water 150 ml 100 ml IV Total 110.0 ml Tube Feeding 450 ml 450 ml Laboratory Tests 08/09/19 03:42: White Blood Count 9.0, Red Blood Count 4.15L, Hemoglobin 11.6L, Hematocrit 40.6L , Mean Corpuscular Volume 98, Mean Corpuscular Hemoglobin 27.9, Mean Corpuscular Hemoglobin Concent 28.5L, Red Cell Distribution Width 17.9H, Platelet Count 404, Mean Platelet Volume 7.1, Neutrophils (%) (Auto) 80.9H, Lymphocytes (%) (Auto) 12.0L, Monocytes (%) (Auto) 6.0, Eosinophils (%) (Auto) 0.7, Basophils (%) (Auto) 0.4, Sodium Level 144, Potassium Level 3.4L, Chloride Level 102, Carbon Dioxide Level 28, Anion Gap 14, Blood Urea Nitrogen 58H, Creatinine 7.8H, Estimat Glomerular Filtration Rate 7.0, Glucose Level 250H, Calcium Level 9.7, Phosphorus Level 2.4L, Magnesium Level 2.6H, Total Bilirubin 0.4, Aspartate Amino Transf (AST/SGOT) 22, Alanine Aminotransferase (ALT/SGPT) 16, Alkaline Phosphatase 138H, C-Reactive Protein, Quantitative 10.8H, Pro-B- Type Natriuretic Peptide 80490P, Total Protein 9.7H, Albumin 3.0L, Globulin 6.7 , Albumin/Globulin Ratio 0.4L 08/09/19 05:15: POC Whole Blood Glucose [Pending] Height (Feet): 6 Height (Inches): 1.00 Weight (Pounds): 173 General Appearance: no apparent distress Cardiovascular: tachycardia Respiratory/Chest: decreased breath sounds Abdomen: soft, distended Objective No change Mic Cole MD Aug 09, 2019 11:38
--- NOTE | 2019-08-09 11:41 | Cardiac Electrophysiology PN ---
Assessment/Plan Assessment/Plan 1. NSTEMI type 2. Low level and flat due to renal failure. On Aspirin. EF 60%. 2. S/P Septic shock. On Abx. DCed Midodrine 3. ESRD, on HD per Dr. Cole. S/P PermCath placement by IR 4. Resp failure due to COVID-19 positive pneumonia. On the Vent with 30% Fio2. S/P Tracheostomy 07/08/19. 5. Dysphagia, S/P PEG 07/13/19 6. COPD. 7. Anemia. JHONY RN Subjective Subjective In SDU on the vent via trach. Off pressors. Fio2 30% Had Fever 101.2 Covid positive x 10. Now has 2 negative Covid . HD pending Objective Last 24 Hour Vital Signs Date Time Temp Pulse Resp B/P (MAP) Pulse Ox O2 Delivery O2 Flow Rate FiO2 08/09/19 11:20 117 26 30 08/09/19 09:10 100.1 08/09/19 08:00 Mechanical Ventilator 08/09/19 08:00 30 08/09/19 08:00 101.7 127 18 117/80 (92) 100 08/09/19 08:00 131 08/09/19 07:25 127 26 30 08/09/19 06:30 130 22 08/09/19 04:00 99.9 133 18 137/86 (103) 100 08/09/19 04:00 30 08/09/19 04:00 Mechanical Ventilator 08/09/19 04:00 131 08/09/19 03:30 133 26 30 08/09/19 00:00 Mechanical Ventilator 08/09/19 00:00 129 08/09/19 00:00 125 26 30 08/09/19 00:00 99.5 125 18 132/76 (94) 99 08/09/19 00:00 30 08/08/19 20:00 30 08/08/19 20:00 99.8 120 18 128/82 (97) 100 08/08/19 20:00 118 08/08/19 20:00 Mechanical Ventilator 08/08/19 19:30 116 26 30 08/08/19 17:38 98.0 08/08/19 16:36 100.0 109 18 123/75 (91) 100 08/08/19 16:00 30 08/08/19 16:00 Mechanical Ventilator 08/08/19 15:33 110 26 30 08/08/19 15:20 112 08/08/19 12:00 Mechanical Ventilator 08/08/19 12:00 30 08/08/19 12:00 100.2 118 21 105/67 (80) 100 08/08/19 11:45 118 Intake and Output 08/08/19 08/09/19 19:00 07:00 Intake Total 600 ml 660.0 ml Balance 600 ml 660.0 ml Free Water 150 ml 100 ml IV Total 110.0 ml Tube Feeding 450 ml 450 ml Laboratory Tests Test 08/09/19 03:42 08/09/19 05:15 White Blood Count 9.0 K/UL (4.8-10.8) Red Blood Count 4.15 M/UL (4.70-6.10) L Hemoglobin 11.6 G/DL (14.2-18.0) L Hematocrit 40.6 % (42.0-52.0) L Mean Corpuscular Volume 98 FL (80-99) Mean Corpuscular Hemoglobin 27.9 PG (27.0-31.0) Mean Corpuscular Hemoglobin Concent 28.5 G/DL (32.0-36.0) L Red Cell Distribution Width 17.9 % (11.6-14.8) H Platelet Count 404 K/UL (150-450) Mean Platelet Volume 7.1 FL (6.5-10.1) Neutrophils (%) (Auto) 80.9 % (45.0-75.0) H Lymphocytes (%) (Auto) 12.0 % (20.0-45.0) L Monocytes (%) (Auto) 6.0 % (1.0-10.0) Eosinophils (%) (Auto) 0.7 % (0.0-3.0) Basophils (%) (Auto) 0.4 % (0.0-2.0) Sodium Level 144 MMOL/L (136-145) Potassium Level 3.4 MMOL/L (3.5-5.1) L Chloride Level 102 MMOL/L (98-107) Carbon Dioxide Level 28 MMOL/L (21-32) Anion Gap 14 mmol/L (5-15) Blood Urea Nitrogen 58 mg/dL (7-18) H Creatinine 7.8 MG/DL (0.55-1.30) H Estimat Glomerular Filtration Rate 7.0 mL/min (>60) Glucose Level 250 MG/DL (74-106) H Calcium Level 9.7 MG/DL (8.5-10.1) Phosphorus Level 2.4 MG/DL (2.5-4.9) L Magnesium Level 2.6 MG/DL (1.8-2.4) H Total Bilirubin 0.4 MG/DL (0.2-1.0) Aspartate Amino Transf (AST/SGOT) 22 U/L (15-37) Alanine Aminotransferase (ALT/SGPT) 16 U/L (12-78) Alkaline Phosphatase 138 U/L (46-116) H C-Reactive Protein, Quantitative 10.8 mg/dL (0.00-0.90) H Pro-B-Type Natriuretic Peptide 29318 pg/mL (0-125) H Total Protein 9.7 G/DL (6.4-8.2) H Albumin 3.0 G/DL (3.4-5.0) L Globulin 6.7 g/dL Albumin/Globulin Ratio 0.4 (1.0-2.7) L POC Whole Blood Glucose Pending Microbiology Date/Time Source Procedure Growth Status 08/06/19 15:45 Nasopharynx Coronavirus COVID-19 PCR ([facility]) - Final Complete Objective HEAD AND NECK: No JVD. Tracheostomy in place. Left IJ HD catheter now in place Right IJ PermCath in place LUNGS: Decreased breath sounds. CARDIOVASCULAR: Regular S1 and S2. Tachycardic. ABDOMEN: Soft. PEG in place EXTREMITIES: No pitting edema. Gio Baker MD Aug 09, 2019 11:41
[2019-08-09 12:00] VITALS: BP 139/77
--- NOTE | 2019-08-09 12:46 | Infectious Diseases Prog Note ---
Assessment/Plan Assessment/Plan IMPRESSION: 1. COVID19 pneumonia Positive: 05/27, 05/31 , 06/05, 06/09 ,5/, 5, 06/23, 06/27, 07/03, 07/15, 07/29 Negative: 07/26, 08/04, 08/05 2. MRSA carrier. 3. Chronic kidney disease , end-stage renal disease. 4. COPD. 5. Hypertension. 6. Anemia. 7. Hypothyroidism. 8. Hyperlipidemia. 9. Major depression. 10. Leukocytosis 11. Hypotension 12. Hepatitis C 13. Hyperuricemia 14. Diarrhea 15. septic shock 16. Leukocytosis resolved 17. Pneumonia with Staph aureus ( MRSA) 18. Bacteremia with Staph coagulase negative RECOMMENDATIONS: Continue IV Vancomycin & Zosyn Repeat CXR Remove subclavian line Subjective ROS Limited/Unobtainable: Yes Constitutional: Reports: fever, other - Bc=033.7 Allergies: Coded Allergies: No Known Allergies (Unverified , 05/28/19) Objective Last 24 Hour Vital Signs Date Time Temp Pulse Resp B/P (MAP) Pulse Ox O2 Delivery O2 Flow Rate FiO2 08/09/19 12:00 Mechanical Ventilator 08/09/19 12:00 30 08/09/19 12:00 30 08/09/19 11:20 117 26 30 08/09/19 09:10 100.1 08/09/19 08:00 Mechanical Ventilator 08/09/19 08:00 30 08/09/19 08:00 101.7 127 18 117/80 (92) 100 08/09/19 08:00 131 08/09/19 07:25 127 26 30 08/09/19 06:30 130 22 08/09/19 04:00 99.9 133 18 137/86 (103) 100 08/09/19 04:00 30 08/09/19 04:00 Mechanical Ventilator 08/09/19 04:00 131 08/09/19 03:30 133 26 30 08/09/19 00:00 Mechanical Ventilator 08/09/19 00:00 129 08/09/19 00:00 125 26 30 08/09/19 00:00 99.5 125 18 132/76 (94) 99 08/09/19 00:00 30 08/08/19 20:00 30 08/08/19 20:00 99.8 120 18 128/82 (97) 100 08/08/19 20:00 118 08/08/19 20:00 Mechanical Ventilator 08/08/19 19:30 116 26 30 08/08/19 17:38 98.0 08/08/19 16:36 100.0 109 18 123/75 (91) 100 08/08/19 16:00 30 08/08/19 16:00 Mechanical Ventilator 08/08/19 15:33 110 26 30 08/08/19 15:20 112 Height (Feet): 6 Height (Inches): 1.00 Weight (Pounds): 173 HEENT: status post trach Respiratory/Chest: lungs clear, other - on ventilator Cardiovascular: tachycardia, other - R Permacath, L subclavian sentral line Extremities: no edema, other - finger clubbing Neurologic/Psychiatric: aphasia Microbiology Date/Time Source Procedure Growth Status 08/06/19 15:45 Nasopharynx Coronavirus COVID-19 PCR ([facility]) - Final Complete Laboratory Tests Test 08/09/19 03:42 08/09/19 05:15 White Blood Count 9.0 K/UL (4.8-10.8) Red Blood Count 4.15 M/UL (4.70-6.10) L Hemoglobin 11.6 G/DL (14.2-18.0) L Hematocrit 40.6 % (42.0-52.0) L Mean Corpuscular Volume 98 FL (80-99) Mean Corpuscular Hemoglobin 27.9 PG (27.0-31.0) Mean Corpuscular Hemoglobin Concent 28.5 G/DL (32.0-36.0) L Red Cell Distribution Width 17.9 % (11.6-14.8) H Platelet Count 404 K/UL (150-450) Mean Platelet Volume 7.1 FL (6.5-10.1) Neutrophils (%) (Auto) 80.9 % (45.0-75.0) H Lymphocytes (%) (Auto) 12.0 % (20.0-45.0) L Monocytes (%) (Auto) 6.0 % (1.0-10.0) Eosinophils (%) (Auto) 0.7 % (0.0-3.0) Basophils (%) (Auto) 0.4 % (0.0-2.0) Sodium Level 144 MMOL/L (136-145) Potassium Level 3.4 MMOL/L (3.5-5.1) L Chloride Level 102 MMOL/L (98-107) Carbon Dioxide Level 28 MMOL/L (21-32) Anion Gap 14 mmol/L (5-15) Blood Urea Nitrogen 58 mg/dL (7-18) H Creatinine 7.8 MG/DL (0.55-1.30) H Estimat Glomerular Filtration Rate 7.0 mL/min (>60) Glucose Level 250 MG/DL (74-106) H Calcium Level 9.7 MG/DL (8.5-10.1) Phosphorus Level 2.4 MG/DL (2.5-4.9) L Magnesium Level 2.6 MG/DL (1.8-2.4) H Total Bilirubin 0.4 MG/DL (0.2-1.0) Aspartate Amino Transf (AST/SGOT) 22 U/L (15-37) Alanine Aminotransferase (ALT/SGPT) 16 U/L (12-78) Alkaline Phosphatase 138 U/L (46-116) H C-Reactive Protein, Quantitative 10.8 mg/dL (0.00-0.90) H Pro-B-Type Natriuretic Peptide 20803 pg/mL (0-125) H Total Protein 9.7 G/DL (6.4-8.2) H Albumin 3.0 G/DL (3.4-5.0) L Globulin 6.7 g/dL Albumin/Globulin Ratio 0.4 (1.0-2.7) L POC Whole Blood Glucose Pending Current Medications Medications (Trade) Dose Ordered Sig/Anthony Route PRN Reason Start Time Stop Time Status Last Admin Dose Admin Acetaminophen (Tylenol) 650 mg Q4H PRN GT Temp >100.5 08/09/19 08:30 09/08/19 08:29 08/09/19 08:40 Acetaminophen (Tylenol) 650 mg Q4H PRN NG For Pain 08/04/19 21:38 09/03/19 21:37 08/08/19 17:08 Chlorhexidine Gluconate (Michelle-Hex 2%) 1 applic DAILY@2000 TOPIC 08/05/19 20:00 09/05/19 19:59 08/08/19 20:16 Dextrose (Dextrose 50%) 25 ml Q30M PRN IV Hypoglycemia 08/04/19 22:00 09/18/19 19:29 Dextrose (Dextrose 50%) 50 ml Q30M PRN IV Hypoglycemia 08/04/19 22:00 09/18/19 19:29 Enoxaparin Sodium (Lovenox) 30 mg DAILY SUBQ 08/05/19 09:00 08/27/19 08:59 08/09/19 08:41 Epoetin Aftab (Epoetin Aftab(ESRD on dialysis)) 10,000 unit FRI-FRI-FRI SUBQ 08/06/19 21:00 08/31/19 20:59 08/06/19 20:18 Haloperidol Lactate 5 mg/ Dextrose 56 ml @ 224 mls/hr Q6H PRN IVPB Agitation 08/04/19 21:38 09/18/19 21:37 Hydralazine HCl (Apresoline) 10 mg Q4H PRN IV Blood pressure over 160 systol 08/04/19 21:39 11/02/19 21:38 Insulin Aspart (NovoLOG) EVERY 6 HOURS SUBQ 08/05/19 00:00 09/19/19 00:00 08/09/19 05:21 Lorazepam (Ativan 2mg/ml 1ml) 0.5 mg Q2H PRN IV For Anxiety 08/04/19 21:39 08/11/19 21:38 08/09/19 02:20 Metoclopramide HCl (Reglan) 5 mg Q8HR IVP 08/05/19 06:00 09/04/19 05:59 08/09/19 05:16 Pantoprazole (Protonix) 40 mg DAILY IVP 08/05/19 09:00 08/26/19 08:59 08/09/19 08:39 Piperacillin Sod/ Tazobactam Sod 3.375 gm/Sodium Chloride 110 ml @ 27.5 mls/hr Q12H IVPB 08/04/19 23:00 08/11/19 10:59 08/09/19 11:06 Potassium Phosphate 20 mm/ Sodium Chloride 281.6667 ml @ 46.944 m... ONCE ONCE IV 08/09/19 13:00 08/09/19 18:59 Vancomycin HCl ([facility] pharmacy to dose) 1 ea DAILY PRN MISC Per rx protocol 08/05/19 09:00 7/9/20 10:44 Ted Leyva MD Aug 09, 2019 12:46
[2019-08-09] MEDS ORDERED: Potassium Phosphate 20 MM in NS 275 ML IV ONE (13:00)
--- NOTE | 2019-08-09 15:18 | Diagnostic Imaging Report ---
Indication: Shortness of breath Technique: One view of the chest Comparison: 08/02/2019 Findings: Tracheostomy, right jugular tunneled dialysis catheter are again demonstrated. Ill-defined bilateral perihilar interstitial opacities are probably unchanged allowing for differences in positioning. Impression: Unchanged, over 7 days, findings as above.
[2019-08-09 16:00] VITALS: BP 131/95
--- NOTE | 2019-08-09 16:12 | Surgery Progress Note ---
Surgery Progress Note Subjective Procedure Performed Left internal jugular temporary hemodialysis catheter removal Additional Comments labs noted exam unchanged no n/v/f/c Objective Last 24 Hour Vital Signs Date Time Temp Pulse Resp B/P (MAP) Pulse Ox O2 Delivery O2 Flow Rate FiO2 08/09/19 15:20 120 28 30 08/09/19 12:00 98.6 120 20 139/77 (97) 100 08/09/19 12:00 Mechanical Ventilator 08/09/19 12:00 123 08/09/19 12:00 30 08/09/19 12:00 30 08/09/19 11:20 117 26 30 08/09/19 09:10 100.1 08/09/19 08:00 Mechanical Ventilator 08/09/19 08:00 30 08/09/19 08:00 101.7 127 18 117/80 (92) 100 08/09/19 08:00 131 08/09/19 07:25 127 26 30 08/09/19 06:30 130 22 08/09/19 04:00 99.9 133 18 137/86 (103) 100 08/09/19 04:00 30 08/09/19 04:00 Mechanical Ventilator 08/09/19 04:00 131 08/09/19 03:30 133 26 30 08/09/19 00:00 Mechanical Ventilator 08/09/19 00:00 129 08/09/19 00:00 125 26 30 08/09/19 00:00 99.5 125 18 132/76 (94) 99 08/09/19 00:00 30 08/08/19 20:00 30 08/08/19 20:00 99.8 120 18 128/82 (97) 100 08/08/19 20:00 118 08/08/19 20:00 Mechanical Ventilator 08/08/19 19:30 116 26 30 08/08/19 17:38 98.0 08/08/19 16:36 100.0 109 18 123/75 (91) 100 I&O Intake and Output 08/08/19 08/09/19 19:00 07:00 Intake Total 600 ml 660.0 ml Balance 600 ml 660.0 ml Free Water 150 ml 100 ml IV Total 110.0 ml Tube Feeding 450 ml 450 ml Dressing: other Wound: other Drains: other Cardiovascular: RSR Respiratory: decreased breath sounds Abdomen: soft, non-tender, present bowel sounds Extremities: no cyanosis Laboratory Tests Test 08/09/19 03:42 08/09/19 05:15 White Blood Count 9.0 K/UL (4.8-10.8) Red Blood Count 4.15 M/UL (4.70-6.10) L Hemoglobin 11.6 G/DL (14.2-18.0) L Hematocrit 40.6 % (42.0-52.0) L Mean Corpuscular Volume 98 FL (80-99) Mean Corpuscular Hemoglobin 27.9 PG (27.0-31.0) Mean Corpuscular Hemoglobin Concent 28.5 G/DL (32.0-36.0) L Red Cell Distribution Width 17.9 % (11.6-14.8) H Platelet Count 404 K/UL (150-450) Mean Platelet Volume 7.1 FL (6.5-10.1) Neutrophils (%) (Auto) 80.9 % (45.0-75.0) H Lymphocytes (%) (Auto) 12.0 % (20.0-45.0) L Monocytes (%) (Auto) 6.0 % (1.0-10.0) Eosinophils (%) (Auto) 0.7 % (0.0-3.0) Basophils (%) (Auto) 0.4 % (0.0-2.0) Sodium Level 144 MMOL/L (136-145) Potassium Level 3.4 MMOL/L (3.5-5.1) L Chloride Level 102 MMOL/L (98-107) Carbon Dioxide Level 28 MMOL/L (21-32) Anion Gap 14 mmol/L (5-15) Blood Urea Nitrogen 58 mg/dL (7-18) H Creatinine 7.8 MG/DL (0.55-1.30) H Estimat Glomerular Filtration Rate 7.0 mL/min (>60) Glucose Level 250 MG/DL (74-106) H Calcium Level 9.7 MG/DL (8.5-10.1) Phosphorus Level 2.4 MG/DL (2.5-4.9) L Magnesium Level 2.6 MG/DL (1.8-2.4) H Total Bilirubin 0.4 MG/DL (0.2-1.0) Aspartate Amino Transf (AST/SGOT) 22 U/L (15-37) Alanine Aminotransferase (ALT/SGPT) 16 U/L (12-78) Alkaline Phosphatase 138 U/L (46-116) H C-Reactive Protein, Quantitative 10.8 mg/dL (0.00-0.90) H Pro-B-Type Natriuretic Peptide 99185 pg/mL (0-125) H Total Protein 9.7 G/DL (6.4-8.2) H Albumin 3.0 G/DL (3.4-5.0) L Globulin 6.7 g/dL Albumin/Globulin Ratio 0.4 (1.0-2.7) L POC Whole Blood Glucose Pending Plan Problems: (1) Suspected COVID-19 virus infection (2) HTN (hypertension) (3) CASSANDRA (acute kidney injury) Assessment & Plan: Needs urgent HD needs access patient okay and consented see note will follow with recs new line placed discussed with team and nephrology HD line functional when checked has TPA now please use appropriately Cathflo used again this flow during dialysis on 430 was low. Will monitor may need line change 5/4 plan for HD as per renal may need to take fluid off with HD edema anasarca dressings saturated and changed will monitor cont with HD IJ left line placed for HD given extent of prior line in place. leukocytosis blood cx negative may need to change out line new line okay HD going well Continue HD as tolerated May need pressors for HD as needed (4) Anemia in chronic kidney disease (CKD) (5) Anemia (6) Renal failure (7) Suspected COVID-19 virus infection Assessment & Plan: Pt deconditioned and despite all skin preventions Pt noted to have developed several pressure injuries. . Stable dry eschar noted to clefts of R and L ears. No erythema noted . DTPI noted to L trochanter. Base of injury is maroon in colour with marginal erythema along borders. Partially opened DTPI Sacrum, R and L Buttocks. Base of wound is maroon with two small open wounds L sacrum and L buttocks. Pt has an APM/MOMO Mattress overlay and is being positioned with pillows as per tolerance and within protocols. worsening despite medical efforts will cont to provide therapy Tx.Plan: Apply Cavilon Skin Barrier to both ears Daily and prn. Apply Moisture Barrier Paste to Sacrum,R and L Buttocks. Cover with Optifoam drsgs. Change every 3 days and PRN. Apply Cavilon Skin Barrier to R and L trochanter. Cover each site with Optifoam drsgs.Change every 7 days and PRN. Apply Cavilon Skin Barrier to both heels. Cover each heel with Optifoam drsg. Change every 7 days and prn. Off-load heels with pillow. Reposition at least every 2hours or as tolerated. APM/MOMO Mattress overlay. (8) COVID-19 Assessment & Plan: COVID + c diff negative febrile leukocytosis renal insufficiency see above cont resp care Rx as per ID worsening on vent support now cxr noted on pressors prognosis guarded repeat covid ++ weaning vent and pressors off slowly showing improvement slowly recovering will need trach as unable to wean vent safely [facility] consent obtained s/p trach pending peg worsening on levo max (9) Sepsis Assessment & Plan: worsening leukocytosis febrile on pressors discussed with ID. lines evaluated and clean. he is septic on pressors and needs central access in difficult venous access patient blood cultures negative will monitor temp HD cath out now with permacath left tlc still subclavian needed line c/d/i Yaniv Mast Aug 09, 2019 16:12
--- NOTE | 2019-08-09 17:16 | Hematology/Onc Progress Note ---
Assessment/Plan Assessment/Plan Assessment and Recs: # Anemia of chronic disease, likely related ot underlying kidney disease has COIVD19++++++ --> hgb trend 9-->8-->7.3-->7.9-->6.8->9.5-->10->8.3-->7.7-->7.1-->8.9->8.8->7.7 -->8.1 ->7.9-->7.7 -->8.2-->8.1 -->7.9-->8.5 -->9->9.2-->9.5-->10.7 -->9.8--> 10.2-->11.8 -->11.9-->8.8 ->9.4->9-->8.3 -->8.5-->9.4->9.8-->9-->8.3-->11.6 --> transfuse as needed, hgb goal >7 --> no evidence of hemolysis --> peripheral smear has been reviewed --> epogen started 3 x a week ==>> transfuse 06/08, 06/15 # Leukocytosis likely related to suspected COVID-19 virus infection --> completed plaquenil --> trend smear as needed --> wbc trend: 4-->11-->14.5-->21-->26-->21->24--.28-->23-->19-->16.2-->21--> 11.2 -->12.5-->12.3-->12.4-->18.5-->18.5-->17->13-->18.2-->22.2-->25-->17.4-->17 -->14.2-->14-->16-->15.5-->9->17 --> pulm is aware --> on abx cefepime/vanc->zosyn/vanc-->dom/vanc-->dom-->levaquin/cefepime--> vanc/zosyn --> pressors as needed --> 06/27 covid 19++ --> pressors as needed in icu # Thrombocytopenia/Lymphopenia --> likely related to covid19 --> plt 129k-->186k-->251-->285-->384 -->430-->539-->515-->447-->451-->404-->544 -->244 # Respiratory failure with covid19+ --> s/p vent/trach --> weaning # Possible Pneumonia --> abx completed --> 07/13 cxr: Improved right lung infiltrates. # Cardiomegaly # Transaminitis with Elevated AST # COPD # Chronic Kidney Disease --> per renal hd --> s/p right femoral cath 07/02 # Hypertension # peg # Dvt ppx lovenox Appreciate consultation and ernesto Rn Subjective Allergies: Coded Allergies: No Known Allergies (Unverified , 05/28/19) Subjective 06/01 nv, extremely agitated, not allowing labs draws, no night sweats, cbc ordered 06/02 confused, restraints, on abx and plaquenil, hgb 7.9, nrb 15 L 06/03 is with nonrebreather, but not compliant, remains confused 06/05 no bleeding, labs noted, no major bleeding, otherwise comfortable 06/06 labs reviewed, no bleeding, meds noted, no night sweats, on levo and nonrebreather 06/07 labs noted, no bleeding, meds reviewed, no bleeding, wbc higher 06/08 to get 2 units prbc, no night sweats, meds reviewed 06/09 is on cefepime and vanc, labs noted, ernesto Rn, no bleeding 06/10 no major changes, labs reviewed, wbc 28k, on abx, cefepime 06/12 remains in icu, labs noted, no night sweats or bleeding 06/13 sluggish pupils, remains agitated, per psych, no bleding, on vent, wbc sitll high 06/14 still confused, remains on vent, with ng, running nepro, on pressors 06/15 icu, febrile, non verbal, hgb 7.1, blood pending, completed plaq 06/16 remains in the icu, nonverbal, plan for hd tomorrow, ernesto rn 06/17 in icu, on pressor, nonverbal, on abx, no bleeding 06/19 no bleeding, nonverbal in icu, hgb is 7.7 06/20 on zosyn, tube feeds, vent, labs noted, in icu, nv 06/21 gettng hd as per renal, in icu, nv, no bleeding, tfs 06/22 icu, cxr with slight improvement, cooling blanket, weaning today 06/23 wewaning, in icu, on vent, abx, and pressors as needed, labs noted 06/24 failed weaning, off abx, completed plaquenil, hgb 8.1 06/26 icu, weaning for this am, afebrile, hgb 8 06/27 in icu, remains comotose, weaning started on peep, no night sweats 06/28 weaning today, off abx, restraints, no distress, h/h stable 06/29 covid 19+, failed weaning, no blood transfusion needed 06/30 icu, on vent, labs reviewed, no distress 07/01 in icu, may need trach, remains on hd per renal, labs noted 07/02 s/p right fem cath, failed wean, no new orders, h/h stable 07/03 is somewhat more responsive, on abx, no bleeding, weaning and HD today 07/04 hd as per renal, weaning off vent, no bleeding today 07/05 obtunded, no bleding overnight, with hd for tomorrow noted, vanc 07/08 no events, remains with trach/vent, ernesto Rn, no bleeding, cbc is noted 07/09 no overnight events, peg for friday pending consent 07/10 off pressors, vent, restraints, labs reviewed 07/11 no acute events is on pressors, intubated, agitated still 07/12 is resting comfortably, no bleeding, emds reviewed and noted 07/13 icu, no events, trach, cxr reviewed, 07/14 is onv ent, tachypneic and tachycardic, labs noted 07/15 remains confused, intubated, ernesto Rn, no bleeding 07/17 icu, cxr improving infiltrates, levo gtt, airborne/contact isolation 07/18 is on broad spectrum abx, is on levaquin and cefepime, wbc 16 agitated 07/19 icu, levo gtt, cxr unchanged, tachy, hd thursday 07/20 sedated, safety restraints, labs reviewed 07/21 hd was done yesterday, lower pressor requirements, wbc is worse, on abx 07/22 icu, meds and labs reviewed, vent, no distress 07/24 on vent, in icu, labs noted, remains agitated, and confused 07/25 remains obtunded, on vent, on pressor, hgb 9, wbc elev 07/26 icu, levo gtt, vent, iv abx, nonverbal 07/27 failed weaning, labs reviewed, repeat covid swab pending 07/28 labs are noted, no bleeding, on vent/trach gtube feeds dw rn 07/29 iuc, restraints, no new changes, vent 07/31 is asleep, comfortable, no events, labs reviewed, restraints+ 08/01 no events, agitated, no bleeding, meds noted, on gtube feeds 08/02 remains on vent, no bleeding, wbc higher 19, hgb 9, on abx 08/03 labs noted, on vent, no bleeding, wbc 17, hgb better 08/04 labs reviewed, no bleeding, does not require prbc, on vent 08/05 more alert, is on trach, vent, no major events, no bleeding, peg+ 08/07 no bleeding no chills, no night sweats, is on vent/trach 08/08 recent covid swab negative, restraints, cxr unchanged Objective Objective Current Medications Medications (Trade) Dose Ordered Sig/Anthony Route PRN Reason Start Time Stop Time Status Last Admin Dose Admin Acetaminophen (Tylenol) 650 mg Q4H PRN GT Temp >100.5 08/09/19 08:30 09/08/19 08:29 08/09/19 08:40 Acetaminophen (Tylenol) 650 mg Q4H PRN NG For Pain 08/04/19 21:38 09/03/19 21:37 08/08/19 17:08 Chlorhexidine Gluconate (Michelle-Hex 2%) 1 applic DAILY@1999 TOPIC 08/05/19 20:00 09/05/19 19:59 08/08/19 20:16 Dextrose (Dextrose 50%) 25 ml Q30M PRN IV Hypoglycemia 08/04/19 22:00 09/18/19 19:29 Dextrose (Dextrose 50%) 50 ml Q30M PRN IV Hypoglycemia 08/04/19 22:00 09/18/19 19:29 Enoxaparin Sodium (Lovenox) 30 mg DAILY SUBQ 08/05/19 09:00 08/27/19 08:59 08/09/19 08:41 Epoetin Aftab (Epoetin Aftab(ESRD on dialysis)) 10,000 unit FRI-FRI-FRI SUBQ 08/06/19 21:00 08/31/19 20:59 08/06/19 20:18 Haloperidol Lactate 5 mg/ Dextrose 56 ml @ 224 mls/hr Q6H PRN IVPB Agitation 08/04/19 21:38 09/18/19 21:37 Hydralazine HCl (Apresoline) 10 mg Q4H PRN IV Blood pressure over 160 systol 08/04/19 21:39 11/02/19 21:38 Insulin Aspart (NovoLOG) EVERY 6 HOURS SUBQ 08/05/19 00:00 09/19/19 00:00 08/09/19 13:03 Lorazepam (Ativan 2mg/ml 1ml) 0.5 mg Q2H PRN IV For Anxiety 08/04/19 21:39 08/11/19 21:38 08/09/19 02:20 Metoclopramide HCl (Reglan) 5 mg Q8HR IVP 08/05/19 06:00 09/04/19 05:59 08/09/19 13:51 Pantoprazole (Protonix) 40 mg DAILY IVP 08/05/19 09:00 08/26/19 08:59 08/09/19 08:39 Piperacillin Sod/ Tazobactam Sod 3.375 gm/Sodium Chloride 110 ml @ 27.5 mls/hr Q12H IVPB 08/04/19 23:00 08/11/19 10:59 08/09/19 11:06 Potassium Phosphate 20 mm/ Sodium Chloride 281.6667 ml @ 46.944 m... ONCE ONCE IV 08/09/19 13:00 08/09/19 18:59 08/09/19 13:51 Vancomycin HCl (Vanco pharmacy to dose) 1 ea DAILY PRN MISC Per rx protocol 08/05/19 09:00 08/19/19 10:44 Last 24 Hour Vital Signs Date Time Temp Pulse Resp B/P (MAP) Pulse Ox O2 Delivery O2 Flow Rate FiO2 08/09/19 16:00 30 08/09/19 16:00 98.6 115 20 131/95 (107) 100 08/09/19 16:00 123 08/09/19 16:00 Mechanical Ventilator 08/09/19 15:20 120 28 30 08/09/19 12:00 98.6 120 20 139/77 (97) 100 08/09/19 12:00 Mechanical Ventilator 08/09/19 12:00 123 08/09/19 12:00 30 08/09/19 12:00 30 08/09/19 11:20 117 26 30 08/09/19 09:10 100.1 08/09/19 08:00 Mechanical Ventilator 08/09/19 08:00 30 08/09/19 08:00 101.7 127 18 117/80 (92) 100 08/09/19 08:00 131 08/09/19 07:25 127 26 30 08/09/19 06:30 130 22 08/09/19 04:00 99.9 133 18 137/86 (103) 100 08/09/19 04:00 30 08/09/19 04:00 Mechanical Ventilator 08/09/19 04:00 131 08/09/19 03:30 133 26 30 08/09/19 00:00 Mechanical Ventilator 08/09/19 00:00 129 08/09/19 00:00 125 26 30 08/09/19 00:00 99.5 125 18 132/76 (94) 99 08/09/19 00:00 30 08/08/19 20:00 30 08/08/19 20:00 99.8 120 18 128/82 (97) 100 08/08/19 20:00 118 08/08/19 20:00 Mechanical Ventilator 08/08/19 19:30 116 26 30 08/08/19 17:38 98.0 08/08/19 16:36 100.0 109 18 123/75 (91) 100 08/08/19 16:00 30 08/08/19 16:00 Mechanical Ventilator 08/08/19 15:33 110 26 30 08/08/19 15:20 112 08/08/19 12:00 Mechanical Ventilator 08/08/19 12:00 30 08/08/19 12:00 100.2 118 21 105/67 (80) 100 08/08/19 11:45 118 08/08/19 10:51 121 26 30 08/08/19 10:49 100 08/08/19 08:00 99.0 122 20 139/80 (99) 100 08/08/19 08:00 Mechanical Ventilator 08/08/19 08:00 30 08/08/19 07:24 117 08/08/19 07:06 120 26 30 08/08/19 06:30 122 24 08/08/19 04:00 117 08/08/19 04:00 Mechanical Ventilator 08/08/19 04:00 30 08/08/19 04:00 99.3 120 20 141/83 (102) 99 08/08/19 03:30 121 26 30 08/08/19 00:00 99.9 117 20 104/66 (79) 98 08/08/19 00:00 121 08/08/19 00:00 Mechanical Ventilator 08/08/19 00:00 30 08/07/19 23:11 117 26 30 08/07/19 20:00 Mechanical Ventilator 08/07/19 20:00 30 08/07/19 20:00 98.9 122 20 121/79 (93) 99 08/07/19 20:00 123 08/07/19 19:10 121 26 30 Intake and Output 08/08/19 08/09/19 19:00 07:00 Intake Total 600 ml 660.0 ml Balance 600 ml 660.0 ml Free Water 150 ml 100 ml IV Total 110.0 ml Tube Feeding 450 ml 450 ml Labs Test 08/06/19 23:27 08/07/19 05:17 08/07/19 23:35 08/08/19 07:30 Random Vancomycin Level 21.0 ug/mL Test 08/09/19 03:42 08/09/19 05:15 White Blood Count 9.0 K/UL (4.8-10.8) Red Blood Count 4.15 M/UL (4.70-6.10) Hemoglobin 11.6 G/DL (14.2-18.0) Hematocrit 40.6 % (42.0-52.0) Mean Corpuscular Volume 98 FL (80-99) Mean Corpuscular Hemoglobin 27.9 PG (27.0-31.0) Mean Corpuscular Hemoglobin Concent 28.5 G/DL (32.0-36.0) Red Cell Distribution Width 17.9 % (11.6-14.8) Platelet Count 404 K/UL (150-450) Mean Platelet Volume 7.1 FL (6.5-10.1) Neutrophils (%) (Auto) 80.9 % (45.0-75.0) Lymphocytes (%) (Auto) 12.0 % (20.0-45.0) Monocytes (%) (Auto) 6.0 % (1.0-10.0) Eosinophils (%) (Auto) 0.7 % (0.0-3.0) Basophils (%) (Auto) 0.4 % (0.0-2.0) Sodium Level 144 MMOL/L (136-145) Potassium Level 3.4 MMOL/L (3.5-5.1) Chloride Level 102 MMOL/L (98-107) Carbon Dioxide Level 28 MMOL/L (21-32) Anion Gap 14 mmol/L (5-15) Blood Urea Nitrogen 58 mg/dL (7-18) Creatinine 7.8 MG/DL (0.55-1.30) Estimat Glomerular Filtration Rate 7.0 mL/min (>60) Glucose Level 250 MG/DL (74-106) Calcium Level 9.7 MG/DL (8.5-10.1) Phosphorus Level 2.4 MG/DL (2.5-4.9) Magnesium Level 2.6 MG/DL (1.8-2.4) Total Bilirubin 0.4 MG/DL (0.2-1.0) Aspartate Amino Transf (AST/SGOT) 22 U/L (15-37) Alanine Aminotransferase (ALT/SGPT) 16 U/L (12-78) Alkaline Phosphatase 138 U/L (46-116) C-Reactive Protein, Quantitative 10.8 mg/dL (0.00-0.90) Pro-B-Type Natriuretic Peptide 28358 pg/mL (0-125) Total Protein 9.7 G/DL (6.4-8.2) Albumin 3.0 G/DL (3.4-5.0) Globulin 6.7 g/dL Albumin/Globulin Ratio 0.4 (1.0-2.7) Height (Feet): 6 Height (Inches): 1.00 Weight (Pounds): 173 Objective General: nv, confused, sedated Heent: bilateral eye normal inspection, bilateral eye PERRL ++Ng Respiratory: normal breath sounds, no respiratory distress, intubated/vent +++ trach+++ Cardiovascular: regular rate, rhythm, no edema Gastrointestinal: normal inspection, soft, non-distended, peg+ Rectal: deferred Musculoskeletal: normal range of motion, non-tender, R fem cath++ Neurologic: alert, motor strength/tone normal, sensory intact, responsive, speech normal Skin: Decubitus/Ulcer - See RN skin exam. : jamaal+ Greg Cabral MD Aug 09, 2019 17:16
--- NOTE | 2019-08-09 18:54 | Psych Consult Progress Note ---
Psychiatry Progress Note Psychiatry Progress Note Subjective the pt still benefits rom restraints. Medications Current Medications Medications (Trade) Dose Ordered Sig/Anthony Route PRN Reason Start Time Stop Time Status Last Admin Dose Admin Acetaminophen (Tylenol) 650 mg Q4H PRN GT Temp >100.5 08/09/19 08:30 09/08/19 08:29 08/09/19 08:40 Acetaminophen (Tylenol) 650 mg Q4H PRN NG For Pain 08/04/19 21:38 09/03/19 21:37 08/08/19 17:08 Chlorhexidine Gluconate (Michelle-Hex 2%) 1 applic DAILY@2000 TOPIC 08/05/19 20:00 09/05/19 19:59 08/08/19 20:16 Dextrose (Dextrose 50%) 25 ml Q30M PRN IV Hypoglycemia 08/04/19 22:00 09/18/19 19:29 Dextrose (Dextrose 50%) 50 ml Q30M PRN IV Hypoglycemia 08/04/19 22:00 09/18/19 19:29 Enoxaparin Sodium (Lovenox) 30 mg DAILY SUBQ 08/05/19 09:00 08/27/19 08:59 08/09/19 08:41 Epoetin Aftab (Epoetin Aftab(ESRD on dialysis)) 10,000 unit FRI-FRI-FRI SUBQ 08/11/19 21:00 11/09/19 20:59 Haloperidol Lactate 5 mg/ Dextrose 56 ml @ 224 mls/hr Q6H PRN IVPB Agitation 08/04/19 21:38 09/18/19 21:37 Hydralazine HCl (Apresoline) 10 mg Q4H PRN IV Blood pressure over 160 systol 08/04/19 21:39 11/02/19 21:38 Insulin Aspart (NovoLOG) EVERY 6 HOURS SUBQ 08/05/19 00:00 09/19/19 00:00 08/09/19 17:36 Lorazepam (Ativan 2mg/ml 1ml) 0.5 mg Q2H PRN IV For Anxiety 08/04/19 21:39 08/11/19 21:38 08/09/19 02:20 Metoclopramide HCl (Reglan) 5 mg Q8HR IVP 08/05/19 06:00 09/04/19 05:59 08/09/19 13:51 Pantoprazole (Protonix) 40 mg DAILY IVP 08/05/19 09:00 08/26/19 08:59 08/09/19 08:39 Piperacillin Sod/ Tazobactam Sod 3.375 gm/Sodium Chloride 110 ml @ 27.5 mls/hr Q12H IVPB 08/04/19 23:00 08/11/19 10:59 08/09/19 11:06 Potassium Phosphate 20 mm/ Sodium Chloride 281.6667 ml @ 46.944 m... ONCE ONCE IV 08/09/19 13:00 08/09/19 18:59 08/09/19 13:51 [facility] DA[facility] PRN MISC Per rx protocol 08/05/19 09:00 08/19/19 10:44 Allergies: Coded Allergies: No Known Allergies (Unverified , 05/28/19) Objective Data Height (Feet): 6 Height (Inches): 1.00 Weight (Pounds): 173 General Appearance: alert, confused, moderate distress, agitated Assessment/Plan Status: progressing, unchanged, deteriorating Assessment/Plan: The pt benefits from restraints cont psychotropic meds dw nurse Guicho Pimentel MD Aug 09, 2019 18:54
[2019-08-09 20:00] VITALS: BP 146/81
[2019-08-09] MEDS: Dyna-Hex 2% Top Sol 2oz TOPIC SCH (20:52)
--- NOTE | 2019-08-09 21:38 | General Progress Note ---
Assessment/Plan Problem List: (1) HTN (hypertension) ICD Codes: I10 - Essential (primary) hypertension SNOMED: 03570304 (2) CASSANDRA (acute kidney injury) ICD Codes: N17.9 - Acute kidney failure, unspecified SNOMED: 4823176, 05831693 (3) Anemia in chronic kidney disease (CKD) ICD Codes: N18.9 - Chronic kidney disease, unspecified; D63.1 - Anemia in chronic kidney disease SNOMED: 853164638 (4) Renal failure ICD Codes: N19 - Unspecified kidney failure SNOMED: 71625383 (5) Respiratory failure requiring intubation ICD Codes: J96.90 - Respiratory failure, unspecified, unspecified whether with hypoxia or hypercapnia; A41.89 - Other specified sepsis SNOMED: 257581496, 777306929 (6) Pneumonia due to COVID-19 virus ICD Codes: U07.1 - COVID-19; J12.89 - Other viral pneumonia SNOMED: 726032690, 136534610 (7) Sepsis due to severe acute respiratory syndrome coronavirus 2 (SARS-CoV-2) ICD Codes: U07.1 - COVID-19; A41.89 - Other specified sepsis SNOMED: 674737572, 961485733 Status: progressing, unchanged, deteriorating Assessment/Plan: trach and peg prn pressor sepsis reviewed chart and labs no acute changes off pressor diaylsis per renal Subjective ROS Limited/Unobtainable: Yes Allergies: Coded Allergies: No Known Allergies (Unverified , 05/28/19) Objective Last 24 Hour Vital Signs Date Time Temp Pulse Resp B/P (MAP) Pulse Ox O2 Delivery O2 Flow Rate FiO2 08/09/19 19:58 117 30 30 08/09/19 16:00 30 08/09/19 16:00 98.6 115 20 131/95 (107) 100 08/09/19 16:00 123 08/09/19 16:00 Mechanical Ventilator 08/09/19 15:20 120 28 30 08/09/19 12:00 98.6 120 20 139/77 (97) 100 08/09/19 12:00 Mechanical Ventilator 08/09/19 12:00 123 08/09/19 12:00 30 08/09/19 12:00 30 08/09/19 11:20 117 26 30 08/09/19 09:10 100.1 08/09/19 08:00 Mechanical Ventilator 08/09/19 08:00 30 08/09/19 08:00 101.7 127 18 117/80 (92) 100 08/09/19 08:00 131 08/09/19 07:25 127 26 30 08/09/19 06:30 130 22 08/09/19 04:00 99.9 133 18 137/86 (103) 100 08/09/19 04:00 30 08/09/19 04:00 Mechanical Ventilator 08/09/19 04:00 131 08/09/19 03:30 133 26 30 08/09/19 00:00 Mechanical Ventilator 08/09/19 00:00 129 08/09/19 00:00 125 26 30 08/09/19 00:00 99.5 125 18 132/76 (94) 99 08/09/19 00:00 30 Intake and Output 08/08/19 08/09/19 19:00 07:00 Intake Total 600 ml 660.0 ml Balance 600 ml 660.0 ml Free Water 150 ml 100 ml IV Total 110.0 ml Tube Feeding 450 ml 450 ml Laboratory Tests 08/09/19 03:42: White Blood Count 9.0, Red Blood Count 4.15L, Hemoglobin 11.6L, Hematocrit 40.6L , Mean Corpuscular Volume 98, Mean Corpuscular Hemoglobin 27.9, Mean Corpuscular Hemoglobin Concent 28.5L, Red Cell Distribution Width 17.9H, Platelet Count 404, Mean Platelet Volume 7.1, Neutrophils (%) (Auto) 80.9H, Lymphocytes (%) (Auto) 12.0L, Monocytes (%) (Auto) 6.0, Eosinophils (%) (Auto) 0.7, Basophils (%) (Auto) 0.4, Sodium Level 144, Potassium Level 3.4L, Chloride Level 102, Carbon Dioxide Level 28, Anion Gap 14, Blood Urea Nitrogen 58H, Creatinine 7.8H, Estimat Glomerular Filtration Rate 7.0, Glucose Level 250H, Calcium Level 9.7, Phosphorus Level 2.4L, Magnesium Level 2.6H, Total Bilirubin 0.4, Aspartate Amino Transf (AST/SGOT) 22, Alanine Aminotransferase (ALT/SGPT) 16, Alkaline Phosphatase 138H, C-Reactive Protein, Quantitative 10.8H, Pro-B- Type Natriuretic Peptide 03859A, Total Protein 9.7H, Albumin 3.0L, Globulin 6.7 , Albumin/Globulin Ratio 0.4L 08/09/19 05:15: POC Whole Blood Glucose [Pending] Height (Feet): 6 Height (Inches): 1.00 Weight (Pounds): 173 Karishma Mulligan MD Aug 09, 2019 21:38
--- NOTE | 2019-08-09 23:40 | Pulmonolgy Critical Care Note ---
Critical Care - Asmt/Plan Assessment/Plan: Pulmonary CCM Progress Note HPI: Patient is a 68 year old man, [facility] resident, admitted c/o shortness of breath, cough, noted to have Covid 19 Pneumonia, Respiratory Failure Remains on Ventilator, CXR infiltrates stable, not tolerating weaning Anemia CKD on HD - on Mitodrine, not tolerating weaning, will need eventual placement, second repeat COVID19 test negative Preserved EF FIO2 30%, P5, adequate O2 sats, remains on ACVC, s/p Tracheostomy previously, sp PEG Fevers today, line removed On AB per ID Seen earlier Past Medical History: COPD, CKD, Hypertension, Anemia Allergies: No Known Allergies Improving Pulmonary Status on HD Physical Exam Vital Signs Noted Stable on ventilator Chronically ill appearing Deferred Covid19 Impression: COVID-19 virus infection Pneumonia Respiratory failure on ventilator, wean as tolerated once off pressors CKD - on HD Hypotension on pressors previously Cardiomegaly Leukocytosis Elevated AST COPD Chronic Kidney Disease - HD H/o Hypertension Worsening anemia sepsis sinus tachycardia Plan: trach care as is Antibiotics per ID HD per renal monitor vitals AC -full support for now and monitor RR anxiolytics if needed 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 if needed; Monitor lab data nutrition feeds Hemodialysis per Renal impression, plan, and exam edited and reviewed in detail care discussed with RN Laboratory Tests Noted: CXR: Hypoventilatory exam, interstitial changes, cardiomegaly, improving infiltrates Subjective ROS Limited/Unobtainable: No Constitutional: Denies: fever Respiratory: Reports: dry cough, shortness of breath Gastrointestinal/Abdominal: Reports: diarrhea, other - colace was stopped Psychiatric: Reports: other - refuses labs Allergies: Coded Allergies: No Known Allergies (Unverified , 05/28/19) All Systems: reviewed and negative except above Labs noted Critical Care - Objective Last 24 Hour Vital Signs Date Time Temp Pulse Resp B/P (MAP) Pulse Ox O2 Delivery O2 Flow Rate FiO2 08/09/19 20:00 127 08/09/19 20:00 30 08/09/19 20:00 99.9 127 20 146/81 (102) 100 08/09/19 20:00 Mechanical Ventilator 08/09/19 19:58 117 30 30 08/09/19 16:00 30 08/09/19 16:00 98.6 115 20 131/95 (107) 100 08/09/19 16:00 123 08/09/19 16:00 Mechanical Ventilator 08/09/19 15:20 120 28 30 08/09/19 12:00 98.6 120 20 139/77 (97) 100 08/09/19 12:00 Mechanical Ventilator 08/09/19 12:00 123 08/09/19 12:00 30 08/09/19 12:00 30 08/09/19 11:20 117 26 30 08/09/19 09:10 100.1 08/09/19 08:00 Mechanical Ventilator 08/09/19 08:00 30 08/09/19 08:00 101.7 127 18 117/80 (92) 100 08/09/19 08:00 131 08/09/19 07:25 127 26 30 08/09/19 06:30 130 22 08/09/19 04:00 99.9 133 18 137/86 (103) 100 08/09/19 04:00 30 08/09/19 04:00 Mechanical Ventilator 08/09/19 04:00 131 08/09/19 03:30 133 26 30 08/09/19 00:00 Mechanical Ventilator 08/09/19 00:00 129 08/09/19 00:00 125 26 30 08/09/19 00:00 99.5 125 18 132/76 (94) 99 08/09/19 00:00 30 Accucheck: 229 Critical Care - Subjective ROS Limited/Unobtainable: Yes Condition: stable FI02: 30 Vent Support Breath Rate: 26 Vent Support Mode: AC Vent Tidal Volume: 500 Sputum Amount: Large PEEP: 5.0 PIP: 28 Tube Feeding Amount: 45 I&O: Intake and Output 08/08/19 08/09/19 19:00 07:00 Intake Total 600 ml 660.0 ml Balance 600 ml 660.0 ml Free Water 150 ml 100 ml IV Total 110.0 ml Tube Feeding 450 ml 450 ml ET-Tube: 7.5 ET Position: 24 Arturo Mckeon MD Aug 09, 2019 23:40
[2019-08-10] VITALS: BP_SYST 139; BP_SYST 92; BP_DIAS 57; BP_DIAS 79
[2019-08-10 04:00] VITALS: BP 138/85
[2019-08-10] MEDS: Acetaminophen 650mg/20.3ml GT PRN ×2 (05:36→11:51)
[2019-08-10] MEDS: Metoclopramide 10mg/2ml Inj IVP SCH ×3 (05:36→22:04)
[2019-08-10] MEDS: NovoLOG Insulin Flexpen SUBQ SCH ×3 (05:37→17:31)
[2019-08-10 08:00] VITALS: BP 137/66
[2019-08-10] MEDS: Pantoprazole Inj IVP SCH (08:08)
[2019-08-10] MEDS: Enoxaparin 30mg Inj SUBQ SCH (08:09)
--- NOTE | 2019-08-10 08:42 | General Progress Note ---
Assessment/Plan Status: progressing, unchanged, deteriorating Assessment/Plan: 1. Diabetes. 2. Hypertension. 3. Coronary artery disease. 4. COPD. 5. Psychiatric disorder with schizophrenia. 6. History of hepatitis C. 7. HLP. 8. Chronic kidney disease, now with acute renal failure. 9. Anemia. 10. Hypothyroidism. 11. Spinal stenosis. 12. Constipation. 13. GERD. 14. COVID positive HD per nephrology fu labs icu care s/p PEG GTF monitor for residuals Subjective ROS Limited/Unobtainable: No Allergies: Coded Allergies: No Known Allergies (Unverified , 05/28/19) Objective Last 24 Hour Vital Signs Date Time Temp Pulse Resp B/P (MAP) Pulse Ox O2 Delivery O2 Flow Rate FiO2 08/10/19 06:06 99.1 08/10/19 04:00 Mechanical Ventilator 08/10/19 04:00 30 08/10/19 04:00 137 08/10/19 04:00 100.8 138 28 138/85 (102) 100 08/10/19 03:05 124 33 30 08/10/19 00:00 Mechanical Ventilator 08/10/19 00:00 138 08/10/19 00:00 30 08/10/19 00:00 100.9 131 28 139/79 (99) 98 08/09/19 23:54 129 34 30 08/09/19 20:00 127 08/09/19 20:00 30 08/09/19 20:00 99.9 127 20 146/81 (102) 100 08/09/19 20:00 Mechanical Ventilator 08/09/19 19:58 117 30 30 08/09/19 16:00 30 08/09/19 16:00 98.6 115 20 131/95 (107) 100 08/09/19 16:00 123 08/09/19 16:00 Mechanical Ventilator 08/09/19 15:20 120 28 30 08/09/19 12:00 98.6 120 20 139/77 (97) 100 08/09/19 12:00 Mechanical Ventilator 08/09/19 12:00 123 08/09/19 12:00 30 08/09/19 12:00 30 08/09/19 11:20 117 26 30 Intake and Output 08/09/19 08/10/19 19:00 07:00 Intake Total 979.720 ml 750.0 ml Output Total 400 ml 300 ml Balance 579.720 ml 450.0 ml Free Water 100 ml IV Total 344.720 ml 110.0 ml Tube Feeding 585 ml 540 ml Other 50 ml Stool Total 400 ml 300 ml Height (Feet): 6 Height (Inches): 1.00 Weight (Pounds): 171 General Appearance: no apparent distress EENT: normal ENT inspection Neck: supple Cardiovascular: normal rate Respiratory/Chest: decreased breath sounds Abdomen: normal bowel sounds, non tender, soft Extremities: non-tender Marito Ramires MD Aug 10, 2019 08:42
--- NOTE | 2019-08-10 10:57 | Cardiac Electrophysiology PN ---
Assessment/Plan Assessment/Plan 1. NSTEMI type 2. Low level and flat due to renal failure. On Aspirin. EF 60%. 2. S/P Septic shock. On Abx. DCed Midodrine 3. ESRD, on HD per Dr. Cole. S/P PermCath placement by IR 4. Resp failure due to COVID-19 positive pneumonia. On the Vent with 30% Fio2. S/P Tracheostomy 07/08/19. 5. Dysphagia, S/P PEG 07/13/19 6. COPD. 7. Anemia. 8. Tachycardia post HD today. Will get stat ECG. Likely sinus tach DW RN Subjective Subjective In SDU on the vent via trach. Off pressors. Fio2 30% Covid positive x 10. Now has 2 negative Covid. Had 2 liter HD today and now is tachycardic in 140s Objective Last 24 Hour Vital Signs Date Time Temp Pulse Resp B/P (MAP) Pulse Ox O2 Delivery O2 Flow Rate FiO2 08/10/19 08:00 30 08/10/19 08:00 99.1 106 22 137/66 (89) 100 08/10/19 08:00 Mechanical Ventilator 08/10/19 07:38 137 08/10/19 06:06 99.1 08/10/19 04:00 Mechanical Ventilator 08/10/19 04:00 30 08/10/19 04:00 137 08/10/19 04:00 100.8 138 28 138/85 (102) 100 08/10/19 03:05 124 33 30 08/10/19 00:00 Mechanical Ventilator 08/10/19 00:00 138 08/10/19 00:00 30 08/10/19 00:00 100.9 131 28 139/79 (99) 98 08/09/19 23:54 129 34 30 08/09/19 20:00 127 08/09/19 20:00 30 08/09/19 20:00 99.9 127 20 146/81 (102) 100 08/09/19 20:00 Mechanical Ventilator 08/09/19 19:58 117 30 30 08/09/19 16:00 30 08/09/19 16:00 98.6 115 20 131/95 (107) 100 08/09/19 16:00 123 08/09/19 16:00 Mechanical Ventilator 6/29/20 15:20 120 28 30 08/09/19 12:00 98.6 120 20 139/77 (97) 100 08/09/19 12:00 Mechanical Ventilator 08/09/19 12:00 123 08/09/19 12:00 30 08/09/19 12:00 30 08/09/19 11:20 117 26 30 Intake and Output 08/09/19 08/10/19 19:00 07:00 Intake Total 979.720 ml 750.0 ml Output Total 400 ml 300 ml Balance 579.720 ml 450.0 ml Free Water 100 ml IV Total 344.720 ml 110.0 ml Tube Feeding 585 ml 540 ml Other 50 ml Stool Total 400 ml 300 ml Microbiology Date/Time Source Procedure Growth Status 08/09/19 14:00 Stool Clostridium difficile Toxin Assay - Final Complete Objective HEAD AND NECK: No JVD. Tracheostomy in place. Left IJ HD catheter now in place Right IJ PermCath in place LUNGS: Decreased breath sounds. CARDIOVASCULAR: Regular S1 and S2. Tachycardic. ABDOMEN: Soft. PEG in place EXTREMITIES: No pitting edema. Gio Baker MD Aug 10, 2019 10:57
[2019-08-10 11:04] VITALS: BP 150/103
--- NOTE | 2019-08-10 11:26 | Nephrology Progress Note ---
Assessment/Plan Problem List: (1) CASSANDRA (acute kidney injury) (2) Anemia in chronic kidney disease (CKD) (3) HTN (hypertension) (4) COVID-19 Assessment Acute renal failure most likely superimposed on chronic kidney disease Suspected COVID-19 virus infection Possible Pneumonia, lymphopenia, elevated AST Cardiomegaly, possible CHF COPD Hypertension Anemia, most likely related to chronic kidney disease Plan August 09: Patient scheduled for hemodialysis today. Will check labs tomorrow. Will August 08: Lab reviewed. Hemodialysis scheduled for tomorrow. August 07: Dialyzed yesterday. No labs drawn today. Will check labs tomorrow. Continue per consultants. August 06: Patient on dialysis now. Discussed with dialysis nurse. Slight catheter malfunction persist. August 05: Labs reviewed. Dialysis scheduled for tomorrow. Continue per consultants. August 04: No labs done today. Dialyzed yesterday. Check labs tomorrow. Continue per consultants. August 03: Lab reviewed. Due for dialysis today. White blood cell 17,500. August 02: Lab reviewed. Low phosphorus replaced. Hemodialysis ordered for tomorrow. White blood cells over 18,000. August 01: Labs reviewed. Potassium replacement ordered. Remains full code on ventilator via trach. Continue per consultants. July 31: Dialyzed yesterday. No can panel today. Remains full code. Remains on ventilator. Being fed through PEG. Continue per consultants. July 30: Patient due for dialysis today. Labs are reviewed. Remains full code. Status post trach to ventilator. Status post PEG. July 29: Patient dialyzed yesterday. Due for dialysis tomorrow. Remains in ICU. Full code. Status post trach tube to ventilator. Status post PEG. July 28: Due for dialysis today. Labs reviewed. Full code. Patient trached and vented. July 27: Last COVID test negative. COVID test will be repeated tomorrow. Will order dialysis tomorrow. Remains full code. Medication list and labs reviewed. July 26: No labs done today. Dialysis done yesterday. Will check lab tomorrow. Dialysis as needed. July 25: Lab reviewed. Dialysis today. Discussed with RN. July 24: Lab reviewed. Do dialysis tomorrow. Discussed with RN. July 23: Lab reviewed. Dialyzed yesterday. Discussed with RN. Remains full code. Next dialysis July 25. Will check labs tomorrow. July 22: Labs reviewed. Due for dialysis today. Discussed with RN. Watch borderline low blood pressure. Discussed with dialysis nurse. July 21: Today's lab reviewed. Will arrange for dialysis tomorrow. Discussed with RN. Aim to keep the blood pressure above 100 systolic. Continue per consultants. July 20: Patient was dialyzed yesterday. Could not ultrafiltrate much due to low blood pressure. Discussed with SHANIQUE Dick today. No labs drawn today. Continue per consultants. July 19: Due for dialysis today. Discussed with SHANIQUE Dick. Continue per consultants. July 18: Dialyzed July 16. Will order dialysis tomorrow July 19. Continues to be on ventilator through trach. No labs done today. Continue per consultants. July 17: Dialyzed yesterday. Stable from renal standpoint of view. Remains full code. Status post trach on vent. Status post PEG. Continue per consultants. July 16: Dialysis today. Will resume Midodrin to prevent hypotension. Patient remains full code. July 15: Dialyzed yesterday, due for dialysis tomorrow. Labs and medication list reviewed. Continue per consultants. Patient remains full code. COVID-19 detected again. July 14: Patient currently on dialysis. This is continuation of dialysis from yesterday as yesterday's dialysis was cut short due to catheter malfunction. Labs and medication reviewed. Continue per consultants. July 13: Patient currently on hemodialysis. The dialysis catheter which is a intrajugular Kamlesh has poor flow. Will try TPA. Continue per consultants. July 12: Due for PEG today. Due for dialysis tomorrow. Continue per consultants. Discussed with RN. July 11: Plan for dialysis today. Discussed with RN. Data reviewed. July 10: Plan for dialysis tomorrow July 11. Waiting for consent to proceed with PEG. Continue per consultants. Medication reviewed. Labs reviewed. Discussed with RN. July 09: Dialyzed yesterday. Labs reviewed. Medication reviewed. Next hemodialysis July 11. July 08: Patient has tracheostomy now. Connected to ventilator. Due for dialysis today. Continue per consultants. Discussed with SHANIQUE Romero. July 07: Patient is due for tracheostomy today. Patient was last dialyzed July 05. Will order dialysis for tomorrow. July 06: Patient is intubated on ventilator however the plan is to extubate today. Patient was dialysis yesterday July 05. The dialysis time was cut short due to patient's respiratory distress. Only 1 L was removed during dialysis yesterday. Today's lab reviewed. Continue per consultants. Will arrange for dialysis as needed. July 05: Patient due for dialysis today. Remains intubated. Will schedule permacath placement in a.m. blood cultures on July 04 are negative. July 04: Patient was dialyzed yesterday. Due for dialysis tomorrow. Continues to be intubated. After tomorrow's dialysis will order a permacath. July 03: Dialysis is about to be started now Continues to be intubated Will plan to remove the femoral dialysis catheter and exchanged for a new temporary catheter per ID recommendation We will check surveillance blood culture tomorrow July 02: Patient was dialyzed yesterday and due for dialysis tomorrow Stable from renal standpoint W on dialysis Continue per consultants, weaning....... etc. July 01: Dialysis today Other status unchanged June 30: Due for dialysis tomorrow Remains intubated on ventilator Labs and medication reviewed Discussed with SHANIQUE Stable from renal standpoint of view June 29: Dialyzed yesterday Due for dialysis tomorrow Stable from renal standpoint to view Keeps failing weaning process June 28: Patient due for dialysis today Stable from renal standpoint to view Continue per consultants June 27: Labs reviewed Due due for dialysis June 28 Discussed with SHANIQUE Dick Continue per consultants Remains intubated on ventilator June 26 Labs reviewed Dialyzed yesterday Started on weaning today Continue to monitor renal parameters June 25: On dialysis now Potassium supplement implemented Continue per consultants Next dialysis June 27June 15: Status unchanged Dialyzed yesterday will dialyze again tomorrow Potassium supplements given Discussed with RN June 14: Due dialysis today Status: Remains intubated on ventilator June 22: Status unchanged Dialyzed yesterday and duefordialysistomorrow Serum sodium stable today June 21 Remains intubated on ventilator Due dialysis today Emphasized high sodium bath for dialysis June 20: Remains intubated on ventilator Dialyzed June 19 next dialysis June 21 Serum sodium 128, will give 250 cc 3% saline Remains full code Discussed with RN Iron panel ordered June 19: Discussed with RN. Patient due for dialysis today. Continue pulmonary support. Remains full code. June 18: Patient dialyzed yesterday June 17 Serum sodium improved but still low Arrange for dialysis tomorrow June 19 Continue per consultants June 17: Due for dialysis today Today's lab reviewed, low serum sodium noted, Emphasized on high sodium bath to dialysis nurse Discussed with SHANIQUE Yuen June 7: Dialyzed yesterday Remains intubated Labs reviewed, serum sodium 131 Plan to dialyze tomorrow June 17 with high sodium bath Discussed with SHANIQUE Yuen June 6: Due for dialysis today Labs reviewed Discussed with RN Transfuse 1 unit of packed RBCs today for low hemoglobin of 7.1 June 5: Blood pressure well maintained Receive dialysis June 13 next hemodialysis June 15June 4: Discussed with RN in ICU Patient did not receive proper dialysis yesterday due to dialysis catheter malfunction Catheter to be adjusted today and dialyzed to be resumed today Continue per consultants Positive for COVID 28 June 2: Patient now intubated on mechanical ventilation Discussed with SHANIQUE Yuen, today June 12 Patient received dialysis yesterday June 10 next hemodialysis June 12 Blood pressure better maintained Today's labs reviewed Continue per consultants Previously patient received dialysis last evening June 05, next dialysis June 07 which was incomplete due to patient's hypotension Will start on midodrine for blood pressure support. Meanwhile continue other pressors as needed Previously Patient is doing poorly, septic, white blood cells are rising, Hypotension somewhat improved We will keep n.p.o. , NG tube for medications, and change medication to IV as needed Patient remains full code Monitor vancomycin level Previously: Patient pulled out his femoral catheter yesterday June 03 which was reinserted by Dr. Mast Patient scheduled for dialysis again June 04, which again was not done due to dialysis nurse citing catheter malfunction Meanwhile continue management per ID, pulmonary , and psych. Meanwhile white blood cell count is rising. Patient blood pressure borderline low. Will check ABG Previously May 31 : I believe patient need dialysis treatment He however needs to competency assessment if can make decisions or not I will communicate with Dr. Mulligan Previously: Per pulmonary and ID advice Adjust blood pressure medication Renal diet Anemia work-up 2D echocardiogram refused Kidney ultrasound refused Jules catheter Urine studies Per orders Subjective ROS Limited/Unobtainable: Yes Objective Objective Last 24 Hour Vital Signs Date Time Temp Pulse Resp B/P (MAP) Pulse Ox O2 Delivery O2 Flow Rate FiO2 08/10/19 08:00 30 08/10/19 08:00 99.1 106 22 137/66 (89) 100 08/10/19 08:00 Mechanical Ventilator 08/10/19 07:38 137 08/10/19 06:06 99.1 08/10/19 04:00 Mechanical Ventilator 08/10/19 04:00 30 08/10/19 04:00 137 08/10/19 04:00 100.8 138 28 138/85 (102) 100 08/10/19 03:05 124 33 30 08/10/19 00:00 Mechanical Ventilator 08/10/19 00:00 138 08/10/19 00:00 30 08/10/19 00:00 100.9 131 28 139/79 (99) 98 08/09/19 23:54 129 34 30 08/09/19 20:00 127 08/09/19 20:00 30 08/09/19 20:00 99.9 127 20 146/81 (102) 100 08/09/19 20:00 Mechanical Ventilator 08/09/19 19:58 117 30 30 08/09/19 16:00 30 08/09/19 16:00 98.6 115 20 131/95 (107) 100 08/09/19 16:00 123 08/09/19 16:00 Mechanical Ventilator 08/09/19 15:20 120 28 30 08/09/19 12:00 98.6 120 20 139/77 (97) 100 08/09/19 12:00 Mechanical Ventilator 08/09/19 12:00 123 08/09/19 12:00 30 08/09/19 12:00 30 Intake and Output 08/09/19 08/10/19 19:00 07:00 Intake Total 979.720 ml 750.0 ml Output Total 400 ml 300 ml Balance 579.720 ml 450.0 ml Free Water 100 ml IV Total 344.720 ml 110.0 ml Tube Feeding 585 ml 540 ml Other 50 ml Stool Total 400 ml 300 ml No labs drawn today Height (Feet): 6 Height (Inches): 1.00 Weight (Pounds): 171 General Appearance: no apparent distress EENT: other - Trach to vent Cardiovascular: tachycardia Respiratory/Chest: decreased breath sounds Abdomen: distended, other - PEG in place feeding in process Objective No change Mic Cole MD Aug 10, 2019 11:26
--- NOTE | 2019-08-10 11:37 | Hematology/Onc Progress Note ---
Assessment/Plan Assessment/Plan Assessment and Recs: # Anemia of chronic disease, likely related ot underlying kidney disease has COIVD19++++++ --> hgb trend 9-->8-->7.3-->7.9-->6.8->9.5-->10->8.3-->7.7-->7.1-->8.9->8.8->7.7 -->8.1 ->7.9-->7.7 -->8.2-->8.1 -->7.9-->8.5 -->9->9.2-->9.5-->10.7 -->9.8--> 10.2-->11.8 -->11.9-->8.8 ->9.4->9-->8.3 -->8.5-->9.4->9.8-->9-->8.3-->11.6 --> transfuse as needed, hgb goal >7 --> no evidence of hemolysis --> peripheral smear has been reviewed --> epogen started 3 x a week ==>> transfuse 06/08, 06/15 # Leukocytosis likely related to suspected COVID-19 virus infection --> completed plaquenil --> trend smear as needed --> wbc trend: 4-->11-->14.5-->21-->26-->21->24--.28-->23-->19-->16.2-->21--> 11.2 -->12.5-->12.3-->12.4-->18.5-->18.5-->17->13-->18.2-->22.2-->25-->17.4-->17 -->14.2-->14-->16-->15.5-->9->17 --> pulm is aware --> on abx cefepime/vanc->zosyn/vanc-->dom/vanc-->dom-->levaquin/cefepime--> vanc/zosyn --> pressors as needed --> 06/27 covid 19++ --> pressors as needed in icu --> c diff negative 08/08 # Thrombocytopenia/Lymphopenia --> likely related to covid19 --> plt 129k-->186k-->251-->285-->384 -->430-->539-->515-->447-->451-->404-->544 -->244 # Respiratory failure with covid19+ --> s/p vent/trach --> weaning # Possible Pneumonia --> abx completed --> 07/13 cxr: Improved right lung infiltrates. # Cardiomegaly # Transaminitis with Elevated AST # COPD # Chronic Kidney Disease --> per renal hd --> s/p right femoral cath 07/02 # Hypertension # peg # Dvt ppx lovenox Appreciate consultation and ernesto Rn Subjective Allergies: Coded Allergies: No Known Allergies (Unverified , 05/28/19) Subjective 06/01 nv, extremely agitated, not allowing labs draws, no night sweats, cbc ordered 06/02 confused, restraints, on abx and plaquenil, hgb 7.9, nrb 15 L 06/03 is with nonrebreather, but not compliant, remains confused 06/05 no bleeding, labs noted, no major bleeding, otherwise comfortable 06/06 labs reviewed, no bleeding, meds noted, no night sweats, on levo and nonrebreather 06/07 labs noted, no bleeding, meds reviewed, no bleeding, wbc higher 06/08 to get 2 units prbc, no night sweats, meds reviewed 06/09 is on cefepime and vanc, labs noted, ernesto Rn, no bleeding 06/10 no major changes, labs reviewed, wbc 28k, on abx, cefepime 06/12 remains in icu, labs noted, no night sweats or bleeding 06/13 sluggish pupils, remains agitated, per psych, no bleding, on vent, wbc sitll high 06/14 still confused, remains on vent, with ng, running nepro, on pressors 06/15 icu, febrile, non verbal, hgb 7.1, blood pending, completed plaq 06/16 remains in the icu, nonverbal, plan for hd tomorrow, ernesto rn 06/17 in icu, on pressor, nonverbal, on abx, no bleeding 06/19 no bleeding, nonverbal in icu, hgb is 7.7 06/20 on zosyn, tube feeds, vent, labs noted, in icu, nv 06/21 gettng hd as per renal, in icu, nv, no bleeding, tfs 06/22 icu, cxr with slight improvement, cooling blanket, weaning today 06/23 wewaning, in icu, on vent, abx, and pressors as needed, labs noted 06/24 failed weaning, off abx, completed plaquenil, hgb 8.1 06/26 icu, weaning for this am, afebrile, hgb 8 06/27 in icu, remains comotose, weaning started on peep, no night sweats 06/28 weaning today, off abx, restraints, no distress, h/h stable 06/29 covid 19+, failed weaning, no blood transfusion needed 06/30 icu, on vent, labs reviewed, no distress 07/01 in icu, may need trach, remains on hd per renal, labs noted 07/02 s/p right fem cath, failed wean, no new orders, h/h stable 07/03 is somewhat more responsive, on abx, no bleeding, weaning and HD today 07/04 hd as per renal, weaning off vent, no bleeding today 07/05 obtunded, no bleding overnight, with hd for tomorrow noted, vanc 07/08 no events, remains with trach/vent, ernesto Rn, no bleeding, cbc is noted 07/09 no overnight events, peg for friday pending consent 07/10 off pressors, vent, restraints, labs reviewed 07/11 no acute events is on pressors, intubated, agitated still 07/12 is resting comfortably, no bleeding, emds reviewed and noted 07/13 icu, no events, trach, cxr reviewed, 07/14 is onv ent, tachypneic and tachycardic, labs noted 07/15 remains confused, intubated, ernesto Rn, no bleeding 07/17 icu, cxr improving infiltrates, levo gtt, airborne/contact isolation 07/18 is on broad spectrum abx, is on levaquin and cefepime, wbc 16 agitated 07/19 icu, levo gtt, cxr unchanged, tachy, hd thursday 07/20 sedated, safety restraints, labs reviewed 07/21 hd was done yesterday, lower pressor requirements, wbc is worse, on abx 07/22 icu, meds and labs reviewed, vent, no distress 07/24 on vent, in icu, labs noted, remains agitated, and confused 07/25 remains obtunded, on vent, on pressor, hgb 9, wbc elev 07/26 icu, levo gtt, vent, iv abx, nonverbal 07/27 failed weaning, labs reviewed, repeat covid swab pending 07/28 labs are noted, no bleeding, on vent/trach gtube feeds dw rn 07/29 iuc, restraints, no new changes, vent 07/31 is asleep, comfortable, no events, labs reviewed, restraints+ 08/01 no events, agitated, no bleeding, meds noted, on gtube feeds 08/02 remains on vent, no bleeding, wbc higher 19, hgb 9, on abx 08/03 labs noted, on vent, no bleeding, wbc 17, hgb better 08/04 labs reviewed, no bleeding, does not require prbc, on vent 08/05 more alert, is on trach, vent, no major events, no bleeding, peg+ 08/07 no bleeding no chills, no night sweats, is on vent/trach 08/08 recent covid swab negative, restraints, cxr unchanged 08/09 c diff negative, zosyn, hd today, gtf Objective Objective Current Medications Medications (Trade) Dose Ordered Sig/Anthony Route PRN Reason Start Time Stop Time Status Last Admin Dose Admin Acetaminophen (Tylenol) 650 mg Q4H PRN GT Temp >100.5 08/09/19 08:30 09/08/19 08:29 08/10/19 05:36 Acetaminophen (Tylenol) 650 mg Q4H PRN NG For Pain 08/04/19 21:38 09/03/19 21:37 08/08/19 17:08 Chlorhexidine Gluconate (Michelle-Hex 2%) 1 applic DAILY@1999 TOPIC 08/05/19 20:00 09/05/19 19:59 08/09/19 20:52 Dextrose (Dextrose 50%) 25 ml Q30M PRN IV Hypoglycemia 08/04/19 22:00 09/18/19 19:29 Dextrose (Dextrose 50%) 50 ml Q30M PRN IV Hypoglycemia 08/04/19 22:00 09/18/19 19:29 Enoxaparin Sodium (Lovenox) 30 mg DAILY SUBQ 08/05/19 09:00 08/27/19 08:59 08/10/19 08:09 Epoetin Aftab (Epoetin Aftab(ESRD on dialysis)) 10,000 unit FRI-FRI-FRI SUBQ 08/11/19 21:00 11/09/19 20:59 Haloperidol Lactate 5 mg/ Dextrose 56 ml @ 224 mls/hr Q6H PRN IVPB Agitation 08/04/19 21:38 09/18/19 21:37 Hydralazine HCl (Apresoline) 10 mg Q4H PRN IV Blood pressure over 160 systol 08/04/19 21:39 11/02/19 21:38 Insulin Aspart (NovoLOG) EVERY 6 HOURS SUBQ 08/05/19 00:00 09/19/19 00:00 08/10/19 05:37 Lorazepam (Ativan 2mg/ml 1ml) 0.5 mg Q2H PRN IV For Anxiety 08/04/19 21:39 08/11/19 21:38 08/09/19 02:20 Metoclopramide HCl (Reglan) 5 mg Q8HR IVP 08/05/19 06:00 09/04/19 05:59 08/10/19 05:36 Pantoprazole (Protonix) 40 mg DAILY IVP 08/05/19 09:00 08/26/19 08:59 08/10/19 08:08 Piperacillin Sod/ Tazobactam Sod 3.375 gm/Sodium Chloride 110 ml @ 27.5 mls/hr Q12H IVPB 08/04/19 23:00 08/11/19 10:59 08/09/19 23:28 Vancomycin HCl (Vanco pharmacy to dose) 1 ea DAILY PRN MISC Per rx protocol 08/05/19 09:00 08/19/19 10:44 Last 24 Hour Vital Signs Date Time Temp Pulse Resp B/P (MAP) Pulse Ox O2 Delivery O2 Flow Rate FiO2 08/10/19 08:00 30 08/10/19 08:00 99.1 106 22 137/66 (89) 100 08/10/19 08:00 Mechanical Ventilator 08/10/19 07:38 137 08/10/19 06:06 99.1 08/10/19 04:00 Mechanical Ventilator 08/10/19 04:00 30 08/10/19 04:00 137 08/10/19 04:00 100.8 138 28 138/85 (102) 100 08/10/19 03:05 124 33 30 08/10/19 00:00 Mechanical Ventilator 08/10/19 00:00 138 08/10/19 00:00 30 08/10/19 00:00 100.9 131 28 139/79 (99) 98 08/09/19 23:54 129 34 30 08/09/19 20:00 127 08/09/19 20:00 30 08/09/19 20:00 99.9 127 20 146/81 (102) 100 08/09/19 20:00 Mechanical Ventilator 08/09/19 19:58 117 30 30 08/09/19 16:00 30 08/09/19 16:00 98.6 115 20 131/95 (107) 100 08/09/19 16:00 123 08/09/19 16:00 Mechanical Ventilator 08/09/19 15:20 120 28 30 08/09/19 12:00 98.6 120 20 139/77 (97) 100 08/09/19 12:00 Mechanical Ventilator 08/09/19 12:00 123 08/09/19 12:00 30 08/09/19 12:00 30 08/09/19 11:20 117 26 30 08/09/19 08:00 Mechanical Ventilator 08/09/19 08:00 30 08/09/19 08:00 101.7 127 18 117/80 (92) 100 08/09/19 08:00 131 08/09/19 07:25 127 26 30 08/09/19 06:30 130 22 08/09/19 04:00 99.9 133 18 137/86 (103) 100 08/09/19 04:00 30 08/09/19 04:00 Mechanical Ventilator 08/09/19 04:00 131 08/09/19 03:30 133 26 30 08/09/19 00:00 Mechanical Ventilator 08/09/19 00:00 129 08/09/19 00:00 125 26 30 08/09/19 00:00 99.5 125 18 132/76 (94) 99 08/09/19 00:00 30 08/08/19 20:00 30 08/08/19 20:00 99.8 120 18 128/82 (97) 100 08/08/19 20:00 118 08/08/19 20:00 Mechanical Ventilator 08/08/19 19:30 116 26 30 08/08/19 17:38 98.0 08/08/19 16:36 100.0 109 18 123/75 (91) 100 08/08/19 16:00 30 08/08/19 16:00 Mechanical Ventilator 08/08/19 15:33 110 26 30 08/08/19 15:20 112 08/08/19 12:00 Mechanical Ventilator 08/08/19 12:00 30 08/08/19 12:00 100.2 118 21 105/67 (80) 100 08/08/19 11:45 118 Intake and Output 08/09/19 08/10/19 19:00 07:00 Intake Total 979.720 ml 750.0 ml Output Total 400 ml 300 ml Balance 579.720 ml 450.0 ml Free Water 100 ml IV Total 344.720 ml 110.0 ml Tube Feeding 585 ml 540 ml Other 50 ml Stool Total 400 ml 300 ml Labs Test 08/07/19 23:35 08/08/19 07:30 08/09/19 03:42 08/09/19 05:15 Random Vancomycin Level 21.0 ug/mL White Blood Count 9.0 K/UL (4.8-10.8) Red Blood Count 4.15 M/UL (4.70-6.10) Hemoglobin 11.6 G/DL (14.2-18.0) Hematocrit 40.6 % (42.0-52.0) Mean Corpuscular Volume 98 FL (80-99) Mean Corpuscular Hemoglobin 27.9 PG (27.0-31.0) Mean Corpuscular Hemoglobin Concent 28.5 G/DL (32.0-36.0) Red Cell Distribution Width 17.9 % (11.6-14.8) Platelet Count 404 K/UL (150-450) Mean Platelet Volume 7.1 FL (6.5-10.1) Neutrophils (%) (Auto) 80.9 % (45.0-75.0) Lymphocytes (%) (Auto) 12.0 % (20.0-45.0) Monocytes (%) (Auto) 6.0 % (1.0-10.0) Eosinophils (%) (Auto) 0.7 % (0.0-3.0) Basophils (%) (Auto) 0.4 % (0.0-2.0) Sodium Level 144 MMOL/L (136-145) Potassium Level 3.4 MMOL/L (3.5-5.1) Chloride Level 102 MMOL/L (98-107) Carbon Dioxide Level 28 MMOL/L (21-32) Anion Gap 14 mmol/L (5-15) Blood Urea Nitrogen 58 mg/dL (7-18) Creatinine 7.8 MG/DL (0.55-1.30) Estimat Glomerular Filtration Rate 7.0 mL/min (>60) Glucose Level 250 MG/DL (74-106) Calcium Level 9.7 MG/DL (8.5-10.1) Phosphorus Level 2.4 MG/DL (2.5-4.9) Magnesium Level 2.6 MG/DL (1.8-2.4) Total Bilirubin 0.4 MG/DL (0.2-1.0) Aspartate Amino Transf (AST/SGOT) 22 U/L (15-37) Alanine Aminotransferase (ALT/SGPT) 16 U/L (12-78) Alkaline Phosphatase 138 U/L (46-116) C-Reactive Protein, Quantitative 10.8 mg/dL (0.00-0.90) Pro-B-Type Natriuretic Peptide 58566 pg/mL (0-125) Total Protein 9.7 G/DL (6.4-8.2) Albumin 3.0 G/DL (3.4-5.0) Globulin 6.7 g/dL Albumin/Globulin Ratio 0.4 (1.0-2.7) Micro Microbiology Date/Time Source Procedure Growth Status 08/09/19 14:00 Stool Clostridium difficile Toxin Assay - Final Complete Height (Feet): 6 Height (Inches): 1.00 Weight (Pounds): 171 Objective General: nv, confused, sedated Heent: bilateral eye normal inspection, bilateral eye PERRL ++Ng Respiratory: normal breath sounds, no respiratory distress, intubated/vent +++ trach+++ Cardiovascular: regular rate, rhythm, no edema Gastrointestinal: normal inspection, soft, non-distended, peg+ Rectal: deferred Musculoskeletal: normal range of motion, non-tender, R fem cath++ Neurologic: alert, motor strength/tone normal, sensory intact, responsive, speech normal Skin: Decubitus/Ulcer - See RN skin exam. : jamaal+ Greg Cabral MD Aug 10, 2019 11:37
[2019-08-10] MEDS: LORazepam Inj 2mg/ml 1ml IV PRN (11:50)
[2019-08-10] MEDS: Piperacillin/Tazobactam 3.375 GM in NS 110 ML IVPB SCH ×2 (12:34→23:58)
--- NOTE | 2019-08-10 12:49 | Surgery Progress Note ---
Surgery Progress Note Subjective Procedure Performed Left internal jugular temporary hemodialysis catheter removal Additional Comments leukocytosis resolved catheter tip without growth c diff negative covid neg now Objective Last 24 Hour Vital Signs Date Time Temp Pulse Resp B/P (MAP) Pulse Ox O2 Delivery O2 Flow Rate FiO2 08/10/19 12:21 100.9 08/10/19 12:00 Mechanical Ventilator 08/10/19 12:00 30 08/10/19 11:04 102.2 149 26 150/103 (119) 100 08/10/19 10:41 141 34 30 08/10/19 08:00 30 08/10/19 08:00 99.1 106 22 137/66 (89) 100 08/10/19 08:00 Mechanical Ventilator 08/10/19 07:38 137 08/10/19 07:15 135 31 30 08/10/19 04:00 Mechanical Ventilator 08/10/19 04:00 30 08/10/19 04:00 137 08/10/19 04:00 100.8 138 28 138/85 (102) 100 08/10/19 03:05 124 33 30 08/10/19 00:00 Mechanical Ventilator 08/10/19 00:00 138 08/10/19 00:00 30 08/10/19 00:00 100.9 131 28 139/79 (99) 98 08/09/19 23:54 129 34 30 08/09/19 20:00 127 08/09/19 20:00 30 08/09/19 20:00 99.9 127 20 146/81 (102) 100 08/09/19 20:00 Mechanical Ventilator 08/09/19 19:58 117 30 30 08/09/19 16:00 30 08/09/19 16:00 98.6 115 20 131/95 (107) 100 08/09/19 16:00 123 08/09/19 16:00 Mechanical Ventilator 08/09/19 15:20 120 28 30 I&O Intake and Output 08/09/19 08/10/19 19:00 07:00 Intake Total 979.720 ml 750.0 ml Output Total 400 ml 300 ml Balance 579.720 ml 450.0 ml Free Water 100 ml IV Total 344.720 ml 110.0 ml Tube Feeding 585 ml 540 ml Other 50 ml Stool Total 400 ml 300 ml Dressing: saturated Wound: clean Cardiovascular: RSR Respiratory: clear, decreased breath sounds Abdomen: soft, non-tender, present bowel sounds Extremities: no tenderness, no cyanosis Plan Problems: (1) Suspected COVID-19 virus infection (2) HTN (hypertension) (3) CASSANDRA (acute kidney injury) Assessment & Plan: Needs urgent HD needs access patient okay and consented see note will follow with recs new line placed discussed with team and nephrology HD line functional when checked has TPA now please use appropriately Cathflo used again this flow during dialysis on 430 was low. Will monitor may need line change 5/4 plan for HD as per renal may need to take fluid off with HD edema anasarca dressings saturated and changed will monitor cont with HD IJ left line placed for HD given extent of prior line in place. leukocytosis blood cx negative may need to change out line new line okay HD going well Continue HD as tolerated May need pressors for HD as needed (4) Anemia in chronic kidney disease (CKD) (5) Anemia (6) Renal failure (7) Suspected COVID-19 virus infection Assessment & Plan: Pt deconditioned and despite all skin preventions Pt noted to have developed several pressure injuries. . Stable dry eschar noted to clefts of R and L ears. No erythema noted . DTPI noted to L trochanter. Base of injury is maroon in colour with marginal erythema along borders. Partially opened DTPI Sacrum, R and L Buttocks. Base of wound is maroon with two small open wounds L sacrum and L buttocks. Pt has an APM/MOMO Mattress overlay and is being positioned with pillows as per tolerance and within protocols. worsening despite medical efforts will cont to provide therapy Tx.Plan: Apply Cavilon Skin Barrier to both ears Daily and prn. Apply Moisture Barrier Paste to Sacrum,R and L Buttocks. Cover with Optifoam drsgs. Change every 3 days and PRN. Apply Cavilon Skin Barrier to R and L trochanter. Cover each site with Optifoam drsgs.Change every 7 days and PRN. Apply Cavilon Skin Barrier to both heels. Cover each heel with Optifoam drsg. Change every 7 days and prn. Off-load heels with pillow. Reposition at least every 2hours or as tolerated. APM/MOMO Mattress overlay. (8) COVID-19 Assessment & Plan: COVID + c diff negative febrile leukocytosis renal insufficiency see above cont resp care Rx as per ID worsening on vent support now cxr noted on pressors prognosis guarded repeat covid ++ weaning vent and pressors off slowly showing improvement slowly recovering will need trach as unable to wean vent safely called and spoke with country conservatorship. consent obtained s/p trach pending peg worsening on levo max (9) Sepsis Assessment & Plan: worsening leukocytosis febrile on pressors discussed with ID. lines evaluated and clean. he is septic on pressors and needs central access in difficult venous access patient blood cultures negative will monitor temp HD cath out now with permacath left tlc still subclavian needed line c/d/i line negative c diff negative wbc resolved improved d/c planning Yaniv Mast Aug 10, 2019 12:49
--- NOTE | 2019-08-10 12:57 | Infectious Diseases Prog Note ---
Assessment/Plan Assessment/Plan IMPRESSION: 1. COVID19 pneumonia Positive: 05/27, 05/31 , 06/05, 06/09 ,5, 5, 06/23, 06/27, 07/03, 07/15, 07/29 Negative: 07/26, 08/04, 08/05 2. MRSA carrier. 3. Chronic kidney disease , end-stage renal disease. 4. COPD. 5. Hypertension. 6. Anemia. 7. Hypothyroidism. 8. Hyperlipidemia. 9. Major depression. 10. Leukocytosis 11. Hypotension 12. Hepatitis C 13. Hyperuricemia 14. Diarrhea, C difficile negative 15. septic shock 16. Leukocytosis resolved 17. Pneumonia with Staph aureus ( MRSA) 18. Bacteremia with Staph coagulase negative RECOMMENDATIONS: Continue IV Vancomycin & Zosyn Will f/u cultures Subjective ROS Limited/Unobtainable: Yes Constitutional: Reports: fever, other - In=416.2 Allergies: Coded Allergies: No Known Allergies (Unverified , 05/28/19) Objective Last 24 Hour Vital Signs Date Time Temp Pulse Resp B/P (MAP) Pulse Ox O2 Delivery O2 Flow Rate FiO2 08/10/19 12:21 100.9 08/10/19 12:00 Mechanical Ventilator 08/10/19 12:00 30 08/10/19 11:04 102.2 149 26 150/103 (119) 100 08/10/19 10:41 141 34 30 08/10/19 08:00 30 08/10/19 08:00 99.1 106 22 137/66 (89) 100 08/10/19 08:00 Mechanical Ventilator 08/10/19 07:38 137 08/10/19 07:15 135 31 30 08/10/19 04:00 Mechanical Ventilator 08/10/19 04:00 30 08/10/19 04:00 137 08/10/19 04:00 100.8 138 28 138/85 (102) 100 08/10/19 03:05 124 33 30 08/10/19 00:00 Mechanical Ventilator 08/10/19 00:00 138 08/10/19 00:00 30 08/10/19 00:00 100.9 131 28 139/79 (99) 98 08/09/19 23:54 129 34 30 08/09/19 20:00 127 08/09/19 20:00 30 08/09/19 20:00 99.9 127 20 146/81 (102) 100 08/09/19 20:00 Mechanical Ventilator 08/09/19 19:58 117 30 30 08/09/19 16:00 30 08/09/19 16:00 98.6 115 20 131/95 (107) 100 08/09/19 16:00 123 08/09/19 16:00 Mechanical Ventilator 08/09/19 15:20 120 28 30 Height (Feet): 6 Height (Inches): 1.00 Weight (Pounds): 171 HEENT: status post trach Respiratory/Chest: lungs clear, other - on ventilator Cardiovascular: normal rate, other - Permacath Abdomen: soft, non tender, other - GT & rectal tube Extremities: no edema Neurologic/Psychiatric: aphasia Microbiology Date/Time Source Procedure Growth Status 08/09/19 14:00 Stool Clostridium difficile Toxin Assay - Final Complete 08/09/19 14:00 Catheter Site Catheter Tip Culture - Preliminary NO GROWTH AFTER 24 HOURS Resulted Current Medications Medications (Trade) Dose Ordered Sig/Anthony Route PRN Reason Start Time Stop Time Status Last Admin Dose Admin Acetaminophen (Tylenol) 650 mg Q4H PRN GT Temp >100.5 08/09/19 08:30 09/08/19 08:29 08/10/19 11:51 Acetaminophen (Tylenol) 650 mg Q4H PRN NG For Pain 08/04/19 21:38 09/03/19 21:37 08/08/19 17:08 Chlorhexidine Gluconate (Michelle-Hex 2%) 1 applic DAILY@2000 TOPIC 08/05/19 20:00 09/05/19 19:59 08/09/19 20:52 Dextrose (Dextrose 50%) 25 ml Q30M PRN IV Hypoglycemia 08/04/19 22:00 09/18/19 19:29 Dextrose (Dextrose 50%) 50 ml Q30M PRN IV Hypoglycemia 08/04/19 22:00 09/18/19 19:29 Enoxaparin Sodium (Lovenox) 30 mg DAILY SUBQ 08/05/19 09:00 08/27/19 08:59 08/10/19 08:09 Epoetin Aftab (Epoetin Aftab(ESRD on dialysis)) 10,000 unit FRI-FRI-FRI SUBQ 08/11/19 21:00 11/09/19 20:59 Haloperidol Lactate 5 mg/ Dextrose 56 ml @ 224 mls/hr Q6H PRN IVPB Agitation 08/04/19 21:38 09/18/19 21:37 Hydralazine HCl (Apresoline) 10 mg Q4H PRN IV Blood pressure over 160 systol 08/04/19 21:39 11/02/19 21:38 Insulin Aspart (NovoLOG) EVERY 6 HOURS SUBQ 08/05/19 00:00 09/19/19 00:00 08/10/19 12:35 Lorazepam (Ativan 2mg/ml 1ml) 0.5 mg Q2H PRN IV For Anxiety 08/04/19 21:39 08/11/19 21:38 08/10/19 11:50 Metoclopramide HCl (Reglan) 5 mg Q8HR IVP 08/05/19 06:00 09/04/19 05:59 08/10/19 05:36 Pantoprazole (Protonix) 40 mg DAILY IVP 08/05/19 09:00 08/26/19 08:59 08/10/19 08:08 Piperacillin Sod/ Tazobactam Sod 3.375 gm/Sodium Chloride 110 ml @ 27.5 mls/hr Q12H IVPB 08/04/19 23:00 08/11/19 10:59 08/10/19 12:34 Vancomycin HCl (Vanco pharmacy to dose) 1 ea DAILY PRN MISC Per rx protocol 08/05/19 09:00 08/19/19 10:44 Ted Leyva MD Aug 10, 2019 12:57
[2019-08-10] MEDS ORDERED: NS 275ml ONE (13:41)
[2019-08-10 16:00] VITALS: BP 165/95
[2019-08-10 20:00] VITALS: BP 112/71
[2019-08-10] MEDS: Dyna-Hex 2% Top Sol 2oz TOPIC SCH (20:03)
--- NOTE | 2019-08-10 20:34 | General Progress Note ---
Assessment/Plan Problem List: (1) HTN (hypertension) ICD Codes: I10 - Essential (primary) hypertension SNOMED: 83557001 (2) CASSANDRA (acute kidney injury) ICD Codes: N17.9 - Acute kidney failure, unspecified SNOMED: 0677999, 51740080 (3) Anemia in chronic kidney disease (CKD) ICD Codes: N18.9 - Chronic kidney disease, unspecified; D63.1 - Anemia in chronic kidney disease SNOMED: 716624814 (4) Renal failure ICD Codes: N19 - Unspecified kidney failure SNOMED: 74966892 (5) Respiratory failure requiring intubation ICD Codes: J96.90 - Respiratory failure, unspecified, unspecified whether with hypoxia or hypercapnia; A41.89 - Other specified sepsis SNOMED: 355157327, 085069261 (6) Pneumonia due to COVID-19 virus ICD Codes: U07.1 - COVID-19; J12.89 - Other viral pneumonia SNOMED: 311727802, 515442249 (7) Sepsis due to severe acute respiratory syndrome coronavirus 2 (SARS-CoV-2) ICD Codes: U07.1 - COVID-19; A41.89 - Other specified sepsis SNOMED: 434204131, 455979400 Status: progressing, unchanged, deteriorating Assessment/Plan: spike fever today worsening sepsis trach and peg prn pressor abx per id diaylsis per renal Subjective ROS Limited/Unobtainable: Yes Allergies: Coded Allergies: No Known Allergies (Unverified , 05/28/19) Objective Last 24 Hour Vital Signs Date Time Temp Pulse Resp B/P (MAP) Pulse Ox O2 Delivery O2 Flow Rate FiO2 08/10/19 19:40 124 26 30 08/10/19 16:00 Mechanical Ventilator 08/10/19 16:00 98.8 125 23 165/95 (118) 100 08/10/19 16:00 30 08/10/19 15:30 135 30 30 08/10/19 15:26 137 08/10/19 12:21 100.9 08/10/19 12:00 Mechanical Ventilator 08/10/19 12:00 30 08/10/19 11:33 152 08/10/19 11:04 102.2 149 26 150/103 (119) 100 08/10/19 10:41 141 34 30 08/10/19 08:00 30 08/10/19 08:00 99.1 106 22 137/66 (89) 100 08/10/19 08:00 Mechanical Ventilator 08/10/19 07:38 137 08/10/19 07:15 135 31 30 08/10/19 04:00 Mechanical Ventilator 08/10/19 04:00 30 08/10/19 04:00 137 08/10/19 04:00 100.8 138 28 138/85 (102) 100 08/10/19 03:05 124 33 30 08/10/19 00:00 Mechanical Ventilator 08/10/19 00:00 138 08/10/19 00:00 30 08/10/19 00:00 100.9 131 28 139/79 (99) 98 08/09/19 23:54 129 34 30 Intake and Output 08/09/19 08/10/19 19:00 07:00 Intake Total 979.720 ml 750.0 ml Output Total 400 ml 300 ml Balance 579.720 ml 450.0 ml Free Water 100 ml IV Total 344.720 ml 110.0 ml Tube Feeding 585 ml 540 ml Other 50 ml Stool Total 400 ml 300 ml Height (Feet): 6 Height (Inches): 1.00 Weight (Pounds): 171 Karishma Mulligan MD Aug 10, 2019 20:34
--- NOTE | 2019-08-10 21:56 | Pulmonolgy Critical Care Note ---
Critical Care - Asmt/Plan Assessment/Plan: Pulmonary CCM Progress Note HPI: Patient is a 68 year old man, prison resident, admitted c/o shortness of breath, cough, noted to have Covid 19 Pneumonia, Respiratory Failure Remains on Ventilator, CXR infiltrates stable Anemia CKD on HD - on Mitodrine, not tolerating weaning, will need eventual placement, second consecutiverepeat COVID19 test negative Preserved EF FIO2 30%, P5, adequate O2 sats, remains on ACVC, s/p Tracheostomy previously, sp PEG Fevers today, line removed On AB per ID for coagulase negative staph Previous MRSA sputum Seen earlier Past Medical History: COPD, CKD, Hypertension, Anemia Allergies: No Known Allergies Improving Pulmonary Status on HD Physical Exam Vital Signs Noted Stable on ventilator Chronically ill appearing Deferred Covid19 Impression: COVID-19 virus infection Pneumonia Respiratory failure on ventilator, wean as tolerated once off pressors CKD - on HD Hypotension on pressors previously Cardiomegaly Leukocytosis Elevated AST COPD Chronic Kidney Disease - HD H/o Hypertension Worsening anemia sepsis sinus tachycardia Plan: trach care as is Antibiotics per ID HD per renal monitor vitals AC -joseph as tolerated anxiolytics if needed 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 if needed; Monitor lab data nutrition feeds Hemodialysis per Renal impression, plan, and exam edited and reviewed in detail care discussed with RN Laboratory Tests Noted: CXR: Hypoventilatory exam, interstitial changes, cardiomegaly, improving infiltrates Subjective ROS Limited/Unobtainable: No Constitutional: Denies: fever Respiratory: Reports: dry cough, shortness of breath Gastrointestinal/Abdominal: Reports: diarrhea, other - colace was stopped Psychiatric: Reports: other - refuses labs Allergies: Coded Allergies: No Known Allergies (Unverified , 05/28/19) All Systems: reviewed and negative except above Labs noted Critical Care - Objective Last 24 Hour Vital Signs Date Time Temp Pulse Resp B/P (MAP) Pulse Ox O2 Delivery O2 Flow Rate FiO2 08/10/19 19:40 124 26 30 08/10/19 16:00 Mechanical Ventilator 08/10/19 16:00 98.8 125 23 165/95 (118) 100 08/10/19 16:00 30 08/10/19 15:30 135 30 30 08/10/19 15:26 137 08/10/19 12:21 100.9 08/10/19 12:00 Mechanical Ventilator 08/10/19 12:00 30 08/10/19 11:33 152 08/10/19 11:04 102.2 149 26 150/103 (119) 100 08/10/19 10:41 141 34 30 08/10/19 08:00 30 08/10/19 08:00 99.1 106 22 137/66 (89) 100 08/10/19 08:00 Mechanical Ventilator 08/10/19 07:38 137 08/10/19 07:15 135 31 30 08/10/19 04:00 Mechanical Ventilator 08/10/19 04:00 30 08/10/19 04:00 137 08/10/19 04:00 100.8 138 28 138/85 (102) 100 08/10/19 03:05 124 33 30 08/10/19 00:00 Mechanical Ventilator 08/10/19 00:00 138 08/10/19 00:00 30 08/10/19 00:00 100.9 131 28 139/79 (99) 98 08/09/19 23:54 129 34 30 Micro: Microbiology Date/Time Source Procedure Growth Status 08/09/19 14:00 Stool Clostridium difficile Toxin Assay - Final Complete 08/09/19 14:00 Catheter Site Catheter Tip Culture - Preliminary NO GROWTH AFTER 24 HOURS Resulted Accucheck: 229 Critical Care - Subjective ROS Limited/Unobtainable: No Condition: stable FI02: 30 Vent Support Breath Rate: 26 Vent Support Mode: AC Vent Tidal Volume: 500 Sputum Amount: Moderate PEEP: 5.0 PIP: 28 Tube Feeding Amount: 45 I&O: Intake and Output 08/09/19 08/10/19 19:00 07:00 Intake Total 979.720 ml 750.0 ml Output Total 400 ml 300 ml Balance 579.720 ml 450.0 ml Free Water 100 ml IV Total 344.720 ml 110.0 ml Tube Feeding 585 ml 540 ml Other 50 ml Stool Total 400 ml 300 ml ET-Tube: 7.5 ET Position: 24 Arturo Mckeon MD Aug 10, 2019 21:56
--- NOTE | 2019-08-10 22:42 | Psych Consult Progress Note ---
Psychiatry Progress Note Psychiatry Progress Note Subjective confused min verbal Medications Current Medications Medications (Trade) Dose Ordered Sig/Anthony Route PRN Reason Start Time Stop Time Status Last Admin Dose Admin Acetaminophen (Tylenol) 650 mg Q4H PRN GT Temp >100.5 08/09/19 08:30 09/08/19 08:29 08/10/19 11:51 Acetaminophen (Tylenol) 650 mg Q4H PRN NG For Pain 08/04/19 21:38 09/03/19 21:37 08/08/19 17:08 Chlorhexidine Gluconate (Michelle-Hex 2%) 1 applic DAILY@2000 TOPIC 08/05/19 20:00 09/05/19 19:59 08/10/19 20:03 Dextrose (Dextrose 50%) 25 ml Q30M PRN IV Hypoglycemia 08/04/19 22:00 09/18/19 19:29 Dextrose (Dextrose 50%) 50 ml Q30M PRN IV Hypoglycemia 08/04/19 22:00 09/18/19 19:29 Enoxaparin Sodium (Lovenox) 30 mg DAILY SUBQ 08/05/19 09:00 08/27/19 08:59 08/10/19 08:09 Epoetin Aftab (Epoetin Aftab(ESRD on dialysis)) 10,000 unit FRI-FRI-FRI SUBQ 08/11/19 21:00 11/09/19 20:59 Haloperidol Lactate 5 mg/ Dextrose 56 ml @ 224 mls/hr Q6H PRN IVPB Agitation 08/04/19 21:38 09/18/19 21:37 Hydralazine HCl (Apresoline) 10 mg Q4H PRN IV Blood pressure over 160 systol 08/04/19 21:39 11/02/19 21:38 Insulin Aspart (NovoLOG) EVERY 6 HOURS SUBQ 08/05/19 00:00 09/19/19 00:00 08/10/19 17:31 Lorazepam (Ativan 2mg/ml 1ml) 0.5 mg Q2H PRN IV For Anxiety 08/04/19 21:39 08/11/19 21:38 08/10/19 11:50 Metoclopramide HCl (Reglan) 5 mg Q8HR IVP 08/05/19 06:00 09/04/19 05:59 08/10/19 22:04 Pantoprazole (Protonix) 40 mg DAILY IVP 08/05/19 09:00 08/26/19 08:59 08/10/19 08:08 Piperacillin Sod/ Tazobactam Sod 3.375 gm/Sodium Chloride 110 ml @ 27.5 mls/hr Q12H IVPB 08/04/19 23:00 08/11/19 10:59 08/10/19 12:34 Vancomycin HCl (Vanco pharmacy to dose) 1 ea DAILY PRN MISC Per rx protocol 08/05/19 09:00 08/19/19 10:44 Neurological/Psychiatric: Reports: anxiety, depressed, emotional problems Allergies: Coded Allergies: No Known Allergies (Unverified , 05/28/19) Objective Data Height (Feet): 6 Height (Inches): 1.00 Weight (Pounds): 171 General Appearance: no apparent distress, alert, confused, agitated Additional Comments: awake, ill-appearing, still has some episodes of agitation, confused. Mood is agitated. Affect is flat. Thought process, disorganized. Thought content, no suicidal or homicidal ideation. Cognition is impaired. Insight and judgment is impaired. Assessment/Plan [place] I: ASSESSMENT: 1. Dementia. 2. Acute encephalopathy. 3. Major depressive disorder. Status: progressing, unchanged, deteriorating Assessment/Plan: The pt benefits from restraints cont psychotropic meds dw nurse Depakote Sprinkles 250 mg b.i.d. Guicho Pimentel MD Aug 10, 2019 22:42
[2019-08-11] VITALS: BP 117/72
[2019-08-11] MEDS: NovoLOG Insulin Flexpen SUBQ SCH ×5 (01:02→23:25)
[2019-08-11 04:00] VITALS: BP 109/68
[2019-08-11 04:53] LABS: BASOPHILS % (AUTO) 0.9 % (0.0-2.0); EOSINOPHILS % (AUTO) 0.6 % (0.0-3.0); HEMATOCRIT 36.8 % (42.0-52.0); HEMOGLOBIN 10.8 G/DL (14.2-18.0); LYMPHOCYTES % (AUTO) 16.6 % (20.0-45.0); MEAN CORPUSCULAR VOLUME 96 FL (80-99); MONOCYTES % (AUTO) 8.8 % (1.0-10.0); PLATELET COUNT 393 K/UL (150-450); RED BLOOD COUNT 3.84 M/UL (4.70-6.10); RED CELL DISTRIBUTION WIDTH 17.7 % (11.6-14.8); WHITE BLOOD COUNT 11.5 K/UL (4.8-10.8)
[2019-08-11 05:41] LABS: ALANINE AMINOTRANSFERASE 16 U/L (12-78); ALBUMIN 2.8 G/DL (3.4-5.0); ALBUMIN/GLOBULIN RATIO 0.4 (1.0-2.7); ALKALINE PHOSPHATASE 114 U/L (46-116); ANION GAP 18 mmol/L (5-15); ASPARTATE AMINO TRANSFERASE 28 U/L (15-37); BILIRUBIN,TOTAL 0.1 MG/DL (0.2-1.0); BLOOD UREA NITROGEN 61 mg/dL (7-18); CALCIUM 9.4 MG/DL (8.5-10.1); CARBON DIOXIDE 24 MMOL/L (21-32); CHLORIDE 106 MMOL/L (98-107); CREATININE 7.7 MG/DL (0.55-1.30); PHOSPHORUS 3.2 MG/DL (2.5-4.9); POTASSIUM 3.1 MMOL/L (3.5-5.1); SODIUM 148 MMOL/L (136-145)
[2019-08-11] MEDS: Metoclopramide 10mg/2ml Inj IVP SCH ×3 (06:43→21:53)
[2019-08-11] MEDS: Acetaminophen 650mg/20.3ml GT PRN ×3 (06:47→21:54)
[2019-08-11 07:47] VITALS: BP 113/72
[2019-08-11] MEDS ORDERED: Vancomycin 750mg/NS 275ml IVPB ONE ×2 (08:00)
[2019-08-11] MEDS: Enoxaparin 30mg Inj SUBQ SCH (08:48)
[2019-08-11] MEDS: Pantoprazole Inj IVP SCH (09:03)
--- NOTE | 2019-08-11 10:11 | General Progress Note ---
Assessment/Plan Status: progressing, unchanged, deteriorating Assessment/Plan: 1. Diabetes. 2. Hypertension. 3. Coronary artery disease. 4. COPD. 5. Psychiatric disorder with schizophrenia. 6. History of hepatitis C. 7. HLP. 8. Chronic kidney disease, now with acute renal failure. 9. Anemia. 10. Hypothyroidism. 11. Spinal stenosis. 12. Constipation. 13. GERD. 14. COVID positive HD per nephrology fu labs icu care s/p PEG GTF decrease TF to 40 cc add prn imodium monitor for residuals Subjective ROS Limited/Unobtainable: No Allergies: Coded Allergies: No Known Allergies (Unverified , 05/28/19) Objective Last 24 Hour Vital Signs Date Time Temp Pulse Resp B/P (MAP) Pulse Ox O2 Delivery O2 Flow Rate FiO2 08/11/19 08:00 125 08/11/19 07:48 125 27 30 08/11/19 07:47 98.6 112 22 113/72 (86) 100 08/11/19 07:17 98.6 08/11/19 04:00 131 08/11/19 04:00 30 08/11/19 04:00 Mechanical Ventilator 08/11/19 04:00 101.7 131 22 109/68 (82) 100 08/11/19 02:47 126 26 30 08/11/19 00:00 98.2 130 22 117/72 (87) 100 08/11/19 00:00 30 08/11/19 00:00 131 08/11/19 00:00 Mechanical Ventilator 08/10/19 22:53 127 26 30 08/10/19 20:00 98.2 122 22 112/71 (85) 100 08/10/19 20:00 30 08/10/19 20:00 Mechanical Ventilator 08/10/19 20:00 123 08/10/19 19:40 124 26 30 08/10/19 16:00 Mechanical Ventilator 08/10/19 16:00 98.8 125 23 165/95 (118) 100 08/10/19 16:00 30 08/10/19 15:30 135 30 30 08/10/19 15:26 137 08/10/19 12:00 Mechanical Ventilator 08/10/19 12:00 30 08/10/19 11:33 152 08/10/19 11:04 102.2 149 26 150/103 (119) 100 08/10/19 10:41 141 34 30 Intake and Output 08/10/19 08/11/19 19:00 07:00 Intake Total 645 ml 750.0 ml Output Total 2000 ml 700 ml Balance -1355 ml 50.0 ml Free Water 150 ml 100 ml IV Total 110.0 ml Tube Feeding 495 ml 540 ml Stool Total 700 ml Hemodialysis UF 2000 ml Laboratory Tests 08/11/19 01:00: POC Whole Blood Glucose 261H 08/11/19 03:00: White Blood Count 11.5H, Red Blood Count 3.84L, Hemoglobin 10.8L, Hematocrit 36.8L, Mean Corpuscular Volume 96, Mean Corpuscular Hemoglobin 28.1, Mean Corpuscular Hemoglobin Concent 29.3L, Red Cell Distribution Width 17.7H, Platelet Count 393, Mean Platelet Volume 7.5, Neutrophils (%) (Auto) 73.0, Lymphocytes (%) (Auto) 16.6L, Monocytes (%) (Auto) 8.8, Eosinophils (%) (Auto) 0.6, Basophils (%) (Auto) 0.9, Sodium Level 148H, Potassium Level 3.1L, Chloride Level 106, Carbon Dioxide Level 24, Anion Gap 18H, Blood Urea Nitrogen 61H, Creatinine 7.7H, Estimat Glomerular Filtration Rate 7.1, Glucose Level 233H , Calcium Level 9.4, Phosphorus Level 3.2, Magnesium Level 2.4, Total Bilirubin 0.1L, Aspartate Amino Transf (AST/SGOT) 28, Alanine Aminotransferase (ALT/SGPT) 16, Alkaline Phosphatase 114, Total Protein 9.3H, Albumin 2.8L, Globulin 6.5, Albumin/Globulin Ratio 0.4L, Random Vancomycin Level 17.4 08/11/19 06:45: POC Whole Blood Glucose 272H Height (Feet): 6 Height (Inches): 1.00 Weight (Pounds): 170 General Appearance: lethargic EENT: normal ENT inspection Neck: supple Cardiovascular: normal rate Respiratory/Chest: decreased breath sounds Abdomen: normal bowel sounds, non tender, soft Extremities: non-tender Marito Ramires MD Aug 11, 2019 10:11
--- NOTE | 2019-08-11 10:17 | Hematology/Onc Progress Note ---
Assessment/Plan Assessment/Plan Assessment and Recs: # Anemia of chronic disease, likely related ot underlying kidney disease has COIVD19++++++ --> hgb trend 9-->8-->7.3-->7.9-->6.8->9.5-->10->8.3-->7.7-->7.1-->8.9->8.8->7.7 -->8.1 ->7.9-->7.7 -->8.2-->8.1 -->7.9-->8.5 -->9->9.2-->9.5-->10.7 -->9.8--> 10.2-->11.8 -->11.9-->8.8 ->9.4->9-->8.3 -->8.5-->9.4->9.8-->9-->8.3-->11.6--.` 0.8 --> transfuse as needed, hgb goal >7 --> no evidence of hemolysis --> peripheral smear has been reviewed --> epogen started 3 x a week ==>> transfuse 06/08, 06/15 # Leukocytosis likely related to suspected COVID-19 virus infection --> completed plaquenil --> trend smear as needed --> wbc trend: 4-->11-->14.5-->21-->26-->21->24--.28-->23-->19-->16.2-->21--> 11.2 -->12.5-->12.3-->12.4-->18.5-->18.5-->17->13-->18.2-->22.2-->25-->17.4-->17 -->14.2-->14-->16-->15.5-->9->17->11.5 --> pulm is aware --> on abx cefepime/vanc->zosyn/vanc-->dom/vanc-->dom-->levaquin/cefepime--> vanc/zosyn --> pressors as needed --> 06/27 covid 19++ --> pressors as needed in icu --> c diff negative 08/08 # Thrombocytopenia/Lymphopenia --> likely related to covid19 --> plt 129k-->186k-->251-->285-->384 -->430-->539-->515-->447-->451-->404-->544 -->244 -->393 # Respiratory failure with covid19+ --> s/p vent/trach --> weaning # Possible Pneumonia --> abx completed --> 07/13 cxr: Improved right lung infiltrates. # Cardiomegaly # Transaminitis with Elevated AST # COPD # Chronic Kidney Disease --> per renal hd --> s/p right femoral cath 07/02 # Hypertension # peg # Dvt ppx lovenox Appreciate consultation and ernesto Rn Subjective Allergies: Coded Allergies: No Known Allergies (Unverified , 05/28/19) Subjective 06/01 nv, extremely agitated, not allowing labs draws, no night sweats, cbc ordered 06/02 confused, restraints, on abx and plaquenil, hgb 7.9, nrb 15 L 06/03 is with nonrebreather, but not compliant, remains confused 06/05 no bleeding, labs noted, no major bleeding, otherwise comfortable 06/06 labs reviewed, no bleeding, meds noted, no night sweats, on levo and nonrebreather 06/07 labs noted, no bleeding, meds reviewed, no bleeding, wbc higher 06/08 to get 2 units prbc, no night sweats, meds reviewed 06/09 is on cefepime and vanc, labs noted, ernesto Rn, no bleeding 06/10 no major changes, labs reviewed, wbc 28k, on abx, cefepime 06/12 remains in icu, labs noted, no night sweats or bleeding 06/13 sluggish pupils, remains agitated, per psych, no bleding, on vent, wbc sitll high 06/14 still confused, remains on vent, with ng, running nepro, on pressors 06/15 icu, febrile, non verbal, hgb 7.1, blood pending, completed plaq 06/16 remains in the icu, nonverbal, plan for hd tomorrow, ernesto rn 06/17 in icu, on pressor, nonverbal, on abx, no bleeding 06/19 no bleeding, nonverbal in icu, hgb is 7.7 06/20 on zosyn, tube feeds, vent, labs noted, in icu, nv 06/21 gettng hd as per renal, in icu, nv, no bleeding, tfs 06/22 icu, cxr with slight improvement, cooling blanket, weaning today 06/23 wewaning, in icu, on vent, abx, and pressors as needed, labs noted 06/24 failed weaning, off abx, completed plaquenil, hgb 8.1 06/26 icu, weaning for this am, afebrile, hgb 8 06/27 in icu, remains comotose, weaning started on peep, no night sweats 06/28 weaning today, off abx, restraints, no distress, h/h stable 06/29 covid 19+, failed weaning, no blood transfusion needed 06/30 icu, on vent, labs reviewed, no distress 07/01 in icu, may need trach, remains on hd per renal, labs noted 07/02 s/p right fem cath, failed wean, no new orders, h/h stable 07/03 is somewhat more responsive, on abx, no bleeding, weaning and HD today 07/04 hd as per renal, weaning off vent, no bleeding today 07/05 obtunded, no bleding overnight, with hd for tomorrow noted, vanc 07/08 no events, remains with trach/vent, ernesto Rn, no bleeding, cbc is noted 07/09 no overnight events, peg for friday pending consent 07/10 off pressors, vent, restraints, labs reviewed 07/11 no acute events is on pressors, intubated, agitated still 07/12 is resting comfortably, no bleeding, emds reviewed and noted 07/13 icu, no events, trach, cxr reviewed, 07/14 is onv ent, tachypneic and tachycardic, labs noted 07/15 remains confused, intubated, ernesto Rn, no bleeding 07/17 icu, cxr improving infiltrates, levo gtt, airborne/contact isolation 07/18 is on broad spectrum abx, is on levaquin and cefepime, wbc 16 agitated 07/19 icu, levo gtt, cxr unchanged, tachy, hd thursday 07/20 sedated, safety restraints, labs reviewed 07/21 hd was done yesterday, lower pressor requirements, wbc is worse, on abx 07/22 icu, meds and labs reviewed, vent, no distress 07/24 on vent, in icu, labs noted, remains agitated, and confused 07/25 remains obtunded, on vent, on pressor, hgb 9, wbc elev 07/26 icu, levo gtt, vent, iv abx, nonverbal 07/27 failed weaning, labs reviewed, repeat covid swab pending 07/28 labs are noted, no bleeding, on vent/trach gtube feeds dw rn 07/29 iuc, restraints, no new changes, vent 07/31 is asleep, comfortable, no events, labs reviewed, restraints+ 08/01 no events, agitated, no bleeding, meds noted, on gtube feeds 08/02 remains on vent, no bleeding, wbc higher 19, hgb 9, on abx 08/03 labs noted, on vent, no bleeding, wbc 17, hgb better 08/04 labs reviewed, no bleeding, does not require prbc, on vent 08/05 more alert, is on trach, vent, no major events, no bleeding, peg+ 08/07 no bleeding no chills, no night sweats, is on vent/trach 08/08 recent covid swab negative, restraints, cxr unchanged 08/09 c diff negative, zosyn, hd today, gtf 08/10 no overnight events, labs reviewed, afebrile Objective Objective Current Medications Medications (Trade) Dose Ordered Sig/Anthony Route PRN Reason Start Time Stop Time Status Last Admin Dose Admin Acetaminophen (Tylenol) 650 mg Q4H PRN GT Temp >100.5 08/09/19 08:30 09/08/19 08:29 08/11/19 06:47 Acetaminophen (Tylenol) 650 mg Q4H PRN NG For Pain 08/04/19 21:38 09/03/19 21:37 08/08/19 17:08 Chlorhexidine Gluconate (Michelle-Hex 2%) 1 applic DAILY@1999 TOPIC 08/05/19 20:00 09/05/19 19:59 08/10/19 20:03 Dextrose (Dextrose 50%) 25 ml Q30M PRN IV Hypoglycemia 08/04/19 22:00 09/18/19 19:29 Dextrose (Dextrose 50%) 50 ml Q30M PRN IV Hypoglycemia 08/04/19 22:00 09/18/19 19:29 Enoxaparin Sodium (Lovenox) 30 mg DAILY SUBQ 08/05/19 09:00 08/27/19 08:59 08/11/19 08:48 Epoetin Aftab (Epoetin Aftab(ESRD on dialysis)) 10,000 unit FRI-FRI-FRI SUBQ 08/11/19 21:00 11/09/19 20:59 Haloperidol Lactate 5 mg/ Dextrose 56 ml @ 224 mls/hr Q6H PRN IVPB Agitation 08/04/19 21:38 09/18/19 21:37 Hydralazine HCl (Apresoline) 10 mg Q4H PRN IV Blood pressure over 160 systol 08/04/19 21:39 11/02/19 21:38 Insulin Aspart (NovoLOG) EVERY 6 HOURS SUBQ 08/05/19 00:00 09/19/19 00:00 08/11/19 06:46 Loperamide HCl (Imodium) 2 mg Q6H PRN NG Diarrhea 08/11/19 10:15 09/10/19 10:14 UNV Lorazepam (Ativan 2mg/ml 1ml) 0.5 mg Q2H PRN IV For Anxiety 08/04/19 21:39 08/11/19 21:38 08/10/19 11:50 Metoclopramide HCl (Reglan) 5 mg Q8HR IVP 08/05/19 06:00 09/04/19 05:59 08/11/19 06:43 Pantoprazole (Protonix) 40 mg DAILY IVP 08/05/19 09:00 08/26/19 08:59 08/11/19 09:03 Piperacillin Sod/ Tazobactam Sod 3.375 gm/Sodium Chloride 110 ml @ 27.5 mls/hr Q12H IVPB 08/04/19 23:00 08/11/19 10:59 08/10/19 23:58 Potassium Chloride (K-Dur) 40 meq ONCE GT 08/11/19 09:45 08/11/19 10:45 08/11/19 09:03 Vancomycin HCl (Vanco pharmacy to dose) 1 ea DAILY PRN MISC Per rx protocol 08/05/19 09:00 08/19/19 10:44 Last 24 Hour Vital Signs Date Time Temp Pulse Resp B/P (MAP) Pulse Ox O2 Delivery O2 Flow Rate FiO2 08/11/19 08:00 125 08/11/19 07:48 125 27 30 08/11/19 07:47 98.6 112 22 113/72 (86) 100 08/11/19 07:17 98.6 08/11/19 04:00 131 08/11/19 04:00 30 08/11/19 04:00 Mechanical Ventilator 08/11/19 04:00 101.7 131 22 109/68 (82) 100 08/11/19 02:47 126 26 30 08/11/19 00:00 98.2 130 22 117/72 (87) 100 08/11/19 00:00 30 08/11/19 00:00 131 08/11/19 00:00 Mechanical Ventilator 08/10/19 22:53 127 26 30 08/10/19 20:00 98.2 122 22 112/71 (85) 100 08/10/19 20:00 30 08/10/19 20:00 Mechanical Ventilator 08/10/19 20:00 123 08/10/19 19:40 124 26 30 08/10/19 16:00 Mechanical Ventilator 08/10/19 16:00 98.8 125 23 165/95 (118) 100 08/10/19 16:00 30 08/10/19 15:30 135 30 30 08/10/19 15:26 137 08/10/19 12:00 Mechanical Ventilator 08/10/19 12:00 30 08/10/19 11:33 152 08/10/19 11:04 102.2 149 26 150/103 (119) 100 08/10/19 10:41 141 34 30 08/10/19 08:00 30 08/10/19 08:00 99.1 106 22 137/66 (89) 100 08/10/19 08:00 Mechanical Ventilator 08/10/19 07:38 137 08/10/19 07:15 135 31 30 08/10/19 04:00 Mechanical Ventilator 08/10/19 04:00 30 08/10/19 04:00 137 08/10/19 04:00 100.8 138 28 138/85 (102) 100 08/10/19 03:05 124 33 30 08/10/19 00:00 Mechanical Ventilator 08/10/19 00:00 138 08/10/19 00:00 30 08/10/19 00:00 100.9 131 28 139/79 (99) 98 08/09/19 23:54 129 34 30 08/09/19 20:00 127 08/09/19 20:00 30 08/09/19 20:00 99.9 127 20 146/81 (102) 100 08/09/19 20:00 Mechanical Ventilator 08/09/19 19:58 117 30 30 08/09/19 16:00 30 08/09/19 16:00 98.6 115 20 131/95 (107) 100 08/09/19 16:00 123 08/09/19 16:00 Mechanical Ventilator 08/09/19 15:20 120 28 30 08/09/19 12:00 98.6 120 20 139/77 (97) 100 08/09/19 12:00 Mechanical Ventilator 08/09/19 12:00 123 08/09/19 12:00 30 08/09/19 12:00 30 08/09/19 11:20 117 26 30 Intake and Output 08/10/19 08/11/19 19:00 07:00 Intake Total 645 ml 750.0 ml Output Total 2000 ml 700 ml Balance -1355 ml 50.0 ml Free Water 150 ml 100 ml IV Total 110.0 ml Tube Feeding 495 ml 540 ml Stool Total 700 ml Hemodialysis UF 2000 ml Labs Test 08/08/19 23:03 08/09/19 03:42 08/09/19 05:15 08/09/19 13:03 POC Whole Blood Glucose 196 MG/DL (74-106) 243 MG/DL (74-106) White Blood Count 9.0 K/UL (4.8-10.8) Red Blood Count 4.15 M/UL (4.70-6.10) Hemoglobin 11.6 G/DL (14.2-18.0) Hematocrit 40.6 % (42.0-52.0) Mean Corpuscular Volume 98 FL (80-99) Mean Corpuscular Hemoglobin 27.9 PG (27.0-31.0) Mean Corpuscular Hemoglobin Concent 28.5 G/DL (32.0-36.0) Red Cell Distribution Width 17.9 % (11.6-14.8) Platelet Count 404 K/UL (150-450) Mean Platelet Volume 7.1 FL (6.5-10.1) Neutrophils (%) (Auto) 80.9 % (45.0-75.0) Lymphocytes (%) (Auto) 12.0 % (20.0-45.0) Monocytes (%) (Auto) 6.0 % (1.0-10.0) Eosinophils (%) (Auto) 0.7 % (0.0-3.0) Basophils (%) (Auto) 0.4 % (0.0-2.0) Sodium Level 144 MMOL/L (136-145) Potassium Level 3.4 MMOL/L (3.5-5.1) Chloride Level 102 MMOL/L (98-107) Carbon Dioxide Level 28 MMOL/L (21-32) Anion Gap 14 mmol/L (5-15) Blood Urea Nitrogen 58 mg/dL (7-18) Creatinine 7.8 MG/DL (0.55-1.30) Estimat Glomerular Filtration Rate 7.0 mL/min (>60) Glucose Level 250 MG/DL (74-106) Calcium Level 9.7 MG/DL (8.5-10.1) Phosphorus Level 2.4 MG/DL (2.5-4.9) Magnesium Level 2.6 MG/DL (1.8-2.4) Total Bilirubin 0.4 MG/DL (0.2-1.0) Aspartate Amino Transf (AST/SGOT) 22 U/L (15-37) Alanine Aminotransferase (ALT/SGPT) 16 U/L (12-78) Alkaline Phosphatase 138 U/L (46-116) C-Reactive Protein, Quantitative 10.8 mg/dL (0.00-0.90) Pro-B-Type Natriuretic Peptide 58517 pg/mL (0-125) Total Protein 9.7 G/DL (6.4-8.2) Albumin 3.0 G/DL (3.4-5.0) Globulin 6.7 g/dL Albumin/Globulin Ratio 0.4 (1.0-2.7) Test 08/09/19 17:32 08/09/19 23:26 08/10/19 05:36 08/11/19 01:00 POC Whole Blood Glucose 211 MG/DL (74-106) 233 MG/DL (74-106) 261 MG/DL (74-106) Test 08/11/19 03:00 08/11/19 06:45 White Blood Count 11.5 K/UL (4.8-10.8) Red Blood Count 3.84 M/UL (4.70-6.10) Hemoglobin 10.8 G/DL (14.2-18.0) Hematocrit 36.8 % (42.0-52.0) Mean Corpuscular Volume 96 FL (80-99) Mean Corpuscular Hemoglobin 28.1 PG (27.0-31.0) Mean Corpuscular Hemoglobin Concent 29.3 G/DL (32.0-36.0) Red Cell Distribution Width 17.7 % (11.6-14.8) Platelet Count 393 K/UL (150-450) Mean Platelet Volume 7.5 FL (6.5-10.1) Neutrophils (%) (Auto) 73.0 % (45.0-75.0) Lymphocytes (%) (Auto) 16.6 % (20.0-45.0) Monocytes (%) (Auto) 8.8 % (1.0-10.0) Eosinophils (%) (Auto) 0.6 % (0.0-3.0) Basophils (%) (Auto) 0.9 % (0.0-2.0) Sodium Level 148 MMOL/L (136-145) Potassium Level 3.1 MMOL/L (3.5-5.1) Chloride Level 106 MMOL/L (98-107) Carbon Dioxide Level 24 MMOL/L (21-32) Anion Gap 18 mmol/L (5-15) Blood Urea Nitrogen 61 mg/dL (7-18) Creatinine 7.7 MG/DL (0.55-1.30) Estimat Glomerular Filtration Rate 7.1 mL/min (>60) Glucose Level 233 MG/DL (74-106) Calcium Level 9.4 MG/DL (8.5-10.1) Phosphorus Level 3.2 MG/DL (2.5-4.9) Magnesium Level 2.4 MG/DL (1.8-2.4) Total Bilirubin 0.1 MG/DL (0.2-1.0) Aspartate Amino Transf (AST/SGOT) 28 U/L (15-37) Alanine Aminotransferase (ALT/SGPT) 16 U/L (12-78) Alkaline Phosphatase 114 U/L (46-116) Total Protein 9.3 G/DL (6.4-8.2) Albumin 2.8 G/DL (3.4-5.0) Globulin 6.5 g/dL Albumin/Globulin Ratio 0.4 (1.0-2.7) Random Vancomycin Level 17.4 ug/mL POC Whole Blood Glucose 272 MG/DL (74-106) Height (Feet): 6 Height (Inches): 1.00 Weight (Pounds): 170 Objective General: nv, confused, sedated Heent: bilateral eye normal inspection, bilateral eye PERRL ++Ng Respiratory: normal breath sounds, no respiratory distress, intubated/vent +++ trach+++ Cardiovascular: regular rate, rhythm, no edema Gastrointestinal: normal inspection, soft, non-distended, peg+ Rectal: deferred Musculoskeletal: normal range of motion, non-tender, R fem cath++ Neurologic: alert, motor strength/tone normal, sensory intact, responsive, speech normal Skin: Decubitus/Ulcer - See RN skin exam. : jamaal+ Gerg Cabral MD Aug 11, 2019 10:17
[2019-08-11 12:00] VITALS: BP 102/61
--- NOTE | 2019-08-11 12:51 | Cardiac Electrophysiology PN ---
Assessment/Plan Assessment/Plan 1. NSTEMI type 2. Low level and flat due to renal failure. On Aspirin. EF 60%. 2. S/P Septic shock. On Abx. 3. ESRD, on HD per Dr. Cole. S/P PermCath placement by IR 4. Resp failure due to COVID-19 positive pneumonia. On the Vent with 30% Fio2. S/P Tracheostomy 07/08/19. 5. Dysphagia, S/P PEG 07/13/19 6. COPD. 7. Anemia. 8. Sinus tach. Due to underlying respiratory failure DW RN Subjective Subjective In SDU on the vent via trach. Off pressors. Fio2 30% Covid positive x 10. Now has 2 negative Covid. Still tachycardic in 130s but sinus tach. No atrial fib Objective Last 24 Hour Vital Signs Date Time Temp Pulse Resp B/P (MAP) Pulse Ox O2 Delivery O2 Flow Rate FiO2 08/11/19 12:26 133 28 30 08/11/19 12:00 99.5 130 22 102/61 (75) 100 08/11/19 12:00 131 08/11/19 12:00 30 08/11/19 12:00 Mechanical Ventilator 08/11/19 10:06 100 08/11/19 08:00 125 08/11/19 08:00 30 08/11/19 08:00 Mechanical Ventilator 08/11/19 07:48 125 27 30 08/11/19 07:47 98.6 112 22 113/72 (86) 100 08/11/19 07:17 98.6 08/11/19 04:00 131 08/11/19 04:00 30 08/11/19 04:00 Mechanical Ventilator 08/11/19 04:00 101.7 131 22 109/68 (82) 100 08/11/19 02:47 126 26 30 08/11/19 00:00 98.2 130 22 117/72 (87) 100 08/11/19 00:00 30 08/11/19 00:00 131 08/11/19 00:00 Mechanical Ventilator 08/10/19 22:53 127 26 30 08/10/19 20:00 98.2 122 22 112/71 (85) 100 08/10/19 20:00 30 08/10/19 20:00 Mechanical Ventilator 08/10/19 20:00 123 08/10/19 19:40 124 26 30 08/10/19 16:00 Mechanical Ventilator 08/10/19 16:00 98.8 125 23 165/95 (118) 100 08/10/19 16:00 30 08/10/19 15:30 135 30 30 08/10/19 15:26 137 Intake and Output 08/10/19 08/11/19 19:00 07:00 Intake Total 645 ml 750.0 ml Output Total 2000 ml 700 ml Balance -1355 ml 50.0 ml Free Water 150 ml 100 ml IV Total 110.0 ml Tube Feeding 495 ml 540 ml Stool Total 700 ml Hemodialysis UF 2000 ml Laboratory Tests Test 08/11/19 01:00 08/11/19 03:00 08/11/19 06:45 08/11/19 11:58 POC Whole Blood Glucose 261 MG/DL (74-106) H 272 MG/DL (74-106) H 267 MG/DL (74-106) H White Blood Count 11.5 K/UL (4.8-10.8) H Red Blood Count 3.84 M/UL (4.70-6.10) L Hemoglobin 10.8 G/DL (14.2-18.0) L Hematocrit 36.8 % (42.0-52.0) L Mean Corpuscular Volume 96 FL (80-99) Mean Corpuscular Hemoglobin 28.1 PG (27.0-31.0) Mean Corpuscular Hemoglobin Concent 29.3 G/DL (32.0-36.0) L Red Cell Distribution Width 17.7 % (11.6-14.8) H Platelet Count 393 K/UL (150-450) Mean Platelet Volume 7.5 FL (6.5-10.1) Neutrophils (%) (Auto) 73.0 % (45.0-75.0) Lymphocytes (%) (Auto) 16.6 % (20.0-45.0) L Monocytes (%) (Auto) 8.8 % (1.0-10.0) Eosinophils (%) (Auto) 0.6 % (0.0-3.0) Basophils (%) (Auto) 0.9 % (0.0-2.0) Sodium Level 148 MMOL/L (136-145) H Potassium Level 3.1 MMOL/L (3.5-5.1) L Chloride Level 106 MMOL/L (98-107) Carbon Dioxide Level 24 MMOL/L (21-32) Anion Gap 18 mmol/L (5-15) H Blood Urea Nitrogen 61 mg/dL (7-18) H Creatinine 7.7 MG/DL (0.55-1.30) H Estimat Glomerular Filtration Rate 7.1 mL/min (>60) Glucose Level 233 MG/DL (74-106) H Calcium Level 9.4 MG/DL (8.5-10.1) Phosphorus Level 3.2 MG/DL (2.5-4.9) Magnesium Level 2.4 MG/DL (1.8-2.4) Total Bilirubin 0.1 MG/DL (0.2-1.0) L Aspartate Amino Transf (AST/SGOT) 28 U/L (15-37) Alanine Aminotransferase (ALT/SGPT) 16 U/L (12-78) Alkaline Phosphatase 114 U/L (46-116) Total Protein 9.3 G/DL (6.4-8.2) H Albumin 2.8 G/DL (3.4-5.0) L Globulin 6.5 g/dL Albumin/Globulin Ratio 0.4 (1.0-2.7) L Random Vancomycin Level 17.4 ug/mL Microbiology Date/Time Source Procedure Growth Status 08/09/19 14:30 Blood Blood Culture - Preliminary NO GROWTH AFTER 24 HOURS Resulted 08/09/19 14:00 Blood Blood Culture - Preliminary Gram Positive Cocci Resulted 08/09/19 14:00 Stool Clostridium difficile Toxin Assay - Final Complete 08/09/19 14:00 Catheter Site Catheter Tip Culture - Preliminary YEAST Resulted Objective HEAD AND NECK: No JVD. Tracheostomy in place. Left IJ HD catheter now in place Right IJ PermCath in place LUNGS: Decreased breath sounds. CARDIOVASCULAR: Regular S1 and S2. Tachycardic. ABDOMEN: Soft. PEG in place EXTREMITIES: No pitting edema. Gio Baker MD Aug 11, 2019 12:51
--- NOTE | 2019-08-11 13:33 | Nephrology Progress Note ---
Assessment/Plan Problem List: (1) CASSANDRA (acute kidney injury) (2) Anemia in chronic kidney disease (CKD) (3) HTN (hypertension) (4) COVID-19 Assessment Acute renal failure most likely superimposed on chronic kidney disease Suspected COVID-19 virus infection Possible Pneumonia, lymphopenia, elevated AST Cardiomegaly, possible CHF COPD Hypertension Anemia, most likely related to chronic kidney disease Plan August 10: Patient was dialyzed yesterday. Today's labs checked. Stable from renal standpoint to view August 09: Patient scheduled for hemodialysis today. Will check labs tomorrow. August 08: Lab reviewed. Hemodialysis scheduled for tomorrow. August 07: Dialyzed yesterday. No labs drawn today. Will check labs tomorrow. Continue per consultants. August 06: Patient on dialysis now. Discussed with dialysis nurse. Slight catheter malfunction persist. August 05: Labs reviewed. Dialysis scheduled for tomorrow. Continue per consultants. August 04: No labs done today. Dialyzed yesterday. Check labs tomorrow. Continue per consultants. August 03: Lab reviewed. Due for dialysis today. White blood cell 17,500. August 02: Lab reviewed. Low phosphorus replaced. Hemodialysis ordered for tomorrow. White blood cells over 18,000. August 01: Labs reviewed. Potassium replacement ordered. Remains full code on ventilator via trach. Continue per consultants. July 31: Dialyzed yesterday. No can panel today. Remains full code. Remains on ventilator. Being fed through PEG. Continue per consultants. July 30: Patient due for dialysis today. Labs are reviewed. Remains full code. Status post trach to ventilator. Status post PEG. July 29: Patient dialyzed yesterday. Due for dialysis tomorrow. Remains in ICU. Full code. Status post trach tube to ventilator. Status post PEG. July 28: Due for dialysis today. Labs reviewed. Full code. Patient trached and vented. July 27: Last COVID test negative. COVID test will be repeated tomorrow. Will order dialysis tomorrow. Remains full code. Medication list and labs reviewed. July 26: No labs done today. Dialysis done yesterday. Will check lab tomorrow. Dialysis as needed. July 25: Lab reviewed. Dialysis today. Discussed with RN. July 24: Lab reviewed. Do dialysis tomorrow. Discussed with RN. July 23: Lab reviewed. Dialyzed yesterday. Discussed with RN. Remains full code. Next dialysis July 25. Will check labs tomorrow. July 22: Labs reviewed. Due for dialysis today. Discussed with RN. Watch borderline low blood pressure. Discussed with dialysis nurse. July 21: Today's lab reviewed. Will arrange for dialysis tomorrow. Discussed with RN. Aim to keep the blood pressure above 100 systolic. Continue per consultants. July 20: Patient was dialyzed yesterday. Could not ultrafiltrate much due to low blood pressure. Discussed with SHANIQUE Dick today. No labs drawn today. Continue per consultants. July 19: Due for dialysis today. Discussed with SHANIQUE Dick. Continue per consultants. July 18: Dialyzed July 16. Will order dialysis tomorrow July 19. Continues to be on ventilator through trach. No labs done today. Continue per consultants. July 17: Dialyzed yesterday. Stable from renal standpoint of view. Remains full code. Status post trach on vent. Status post PEG. Continue per consultants. July 16: Dialysis today. Will resume Midodrin to prevent hypotension. Patient remains full code. July 15: Dialyzed yesterday, due for dialysis tomorrow. Labs and medication list reviewed. Continue per consultants. Patient remains full code. COVID-19 detected again. July 14: Patient currently on dialysis. This is continuation of dialysis from yesterday as yesterday's dialysis was cut short due to catheter malfunction. Labs and medication reviewed. Continue per consultants. July 13: Patient currently on hemodialysis. The dialysis catheter which is a intrajugular Kamlesh has poor flow. Will try TPA. Continue per consultants. July 12: Due for PEG today. Due for dialysis tomorrow. Continue per consultants. Discussed with RN. July 11: Plan for dialysis today. Discussed with RN. Data reviewed. July 10: Plan for dialysis tomorrow July 11. Waiting for consent to proceed with PEG. Continue per consultants. Medication reviewed. Labs reviewed. Discussed with RN. July 09: Dialyzed yesterday. Labs reviewed. Medication reviewed. Next hemodialysis July 11. July 08: Patient has tracheostomy now. Connected to ventilator. Due for dialysis today. Continue per consultants. Discussed with SHANIQUE Romero. July 07: Patient is due for tracheostomy today. Patient was last dialyzed July 05. Will order dialysis for tomorrow. July 06: Patient is intubated on ventilator however the plan is to extubate today. Patient was dialysis yesterday July 05. The dialysis time was cut short due to patient's respiratory distress. Only 1 L was removed during dialysis yesterday. Today's lab reviewed. Continue per consultants. Will arrange for dialysis as needed. July 05: Patient due for dialysis today. Remains intubated. Will schedule permacath placement in a.m. blood cultures on July 04 are negative. July 04: Patient was dialyzed yesterday. Due for dialysis tomorrow. Continues to be intubated. After tomorrow's dialysis will order a permacath. July 03: Dialysis is about to be started now Continues to be intubated Will plan to remove the femoral dialysis catheter and exchanged for a new temporary catheter per ID recommendation We will check surveillance blood culture tomorrow July 02: Patient was dialyzed yesterday and due for dialysis tomorrow Stable from renal standpoint W on dialysis Continue per consultants, weaning....... etc. July 01: Dialysis today Other status unchanged June 30: Due for dialysis tomorrow Remains intubated on ventilator Labs and medication reviewed Discussed with SHANIQUE Stable from renal standpoint of view June 29: Dialyzed yesterday Due for dialysis tomorrow Stable from renal standpoint to view Keeps failing weaning process June 28: Patient due for dialysis today Stable from renal standpoint to view Continue per consultants June 27: Labs reviewed Due due for dialysis June 28 Discussed with SHANIQUE Dick Continue per consultants Remains intubated on ventilator June 26 Labs reviewed Dialyzed yesterday Started on weaning today Continue to monitor renal parameters June 25: On dialysis now Potassium supplement implemented Continue per consultants Next dialysis June 27June 15: Status unchanged Dialyzed yesterday will dialyze again tomorrow Potassium supplements given Discussed with RN June 23: Due dialysis today Status: Remains intubated on ventilator June 22: Status unchanged Dialyzed yesterday and duefordialysistomorrow Serum sodium stable today June 21 Remains intubated on ventilator Due dialysis today Emphasized high sodium bath for dialysis June 20: Remains intubated on ventilator Dialyzed June 19 next dialysis June 21 Serum sodium 128, will give 250 cc 3% saline Remains full code Discussed with RN Iron panel ordered June 19: Discussed with RN. Patient due for dialysis today. Continue pulmonary support. Remains full code. June 18: Patient dialyzed yesterday May 8 Serum sodium improved but still low Arrange for dialysis tomorrow June 19 Continue per consultants June 8: Due for dialysis today Today's lab reviewed, low serum sodium noted, Emphasized on high sodium bath to dialysis nurse Discussed with SHANIQUE Yuen June 16: Dialyzed yesterday Remains intubated Labs reviewed, serum sodium 131 Plan to dialyze tomorrow June 17 with high sodium bath Discussed with SHANIQUE Yuen June 15: Due for dialysis today Labs reviewed Discussed with RN Transfuse 1 unit of packed RBCs today for low hemoglobin of 7.1 June 5: Blood pressure well maintained Receive dialysis June 13 next hemodialysis June 15June 4: Discussed with RN in ICU Patient did not receive proper dialysis yesterday due to dialysis catheter malfunction Catheter to be adjusted today and dialyzed to be resumed today Continue per consultants Positive for COVID 28 June 2: Patient now intubated on mechanical ventilation Discussed with SHANIQUE Yuen, today June 12 Patient received dialysis yesterday June 10 next hemodialysis June 12 Blood pressure better maintained Today's labs reviewed Continue per consultants Previously patient received dialysis last evening June 05, next dialysis June 07 which was incomplete due to patient's hypotension Will start on midodrine for blood pressure support. Meanwhile continue other pressors as needed Previously Patient is doing poorly, septic, white blood cells are rising, Hypotension somewhat improved We will keep n.p.o. , NG tube for medications, and change medication to IV as needed Patient remains full code Monitor vancomycin level Previously: Patient pulled out his femoral catheter yesterday June 03 which was reinserted by Dr. Mast Patient scheduled for dialysis again June 04, which again was not done due to dialysis nurse citing catheter malfunction Meanwhile continue management per ID, pulmonary , and psych. Meanwhile white blood cell count is rising. Patient blood pressure borderline low. Will check ABG Previously May 31 : I believe patient need dialysis treatment He however needs to competency assessment if can make decisions or not I will communicate with Dr. Mulligan Previously: Per pulmonary and ID advice Adjust blood pressure medication Renal diet Anemia work-up 2D echocardiogram refused Kidney ultrasound refused Jules catheter Urine studies Per orders Subjective ROS Limited/Unobtainable: Yes Objective Objective Last 24 Hour Vital Signs Date Time Temp Pulse Resp B/P (MAP) Pulse Ox O2 Delivery O2 Flow Rate FiO2 08/11/19 12:26 133 28 30 08/11/19 12:00 99.5 130 22 102/61 (75) 100 08/11/19 12:00 131 08/11/19 12:00 30 08/11/19 12:00 Mechanical Ventilator 08/11/19 10:06 100 08/11/19 08:00 125 08/11/19 08:00 30 08/11/19 08:00 Mechanical Ventilator 08/11/19 07:48 125 27 30 08/11/19 07:47 98.6 112 22 113/72 (86) 100 08/11/19 07:17 98.6 08/11/19 04:00 131 08/11/19 04:00 30 08/11/19 04:00 Mechanical Ventilator 08/11/19 04:00 101.7 131 22 109/68 (82) 100 08/11/19 02:47 126 26 30 08/11/19 00:00 98.2 130 22 117/72 (87) 100 08/11/19 00:00 30 08/11/19 00:00 131 08/11/19 00:00 Mechanical Ventilator 08/10/19 22:53 127 26 30 08/10/19 20:00 98.2 122 22 112/71 (85) 100 08/10/19 20:00 30 08/10/19 20:00 Mechanical Ventilator 08/10/19 20:00 123 08/10/19 19:40 124 26 30 08/10/19 16:00 Mechanical Ventilator 08/10/19 16:00 98.8 125 23 165/95 (118) 100 08/10/19 16:00 30 08/10/19 15:30 135 30 30 08/10/19 15:26 137 Intake and Output 08/10/19 08/11/19 19:00 07:00 Intake Total 645 ml 750.0 ml Output Total 2000 ml 700 ml Balance -1355 ml 50.0 ml Free Water 150 ml 100 ml IV Total 110.0 ml Tube Feeding 495 ml 540 ml Stool Total 700 ml Hemodialysis UF 2000 ml Laboratory Tests 08/11/19 01:00: POC Whole Blood Glucose 261H 08/11/19 03:00: White Blood Count 11.5H, Red Blood Count 3.84L, Hemoglobin 10.8L, Hematocrit 36.8L, Mean Corpuscular Volume 96, Mean Corpuscular Hemoglobin 28.1, Mean Corpuscular Hemoglobin Concent 29.3L, Red Cell Distribution Width 17.7H, Platelet Count 393, Mean Platelet Volume 7.5, Neutrophils (%) (Auto) 73.0, Lymphocytes (%) (Auto) 16.6L, Monocytes (%) (Auto) 8.8, Eosinophils (%) (Auto) 0.6, Basophils (%) (Auto) 0.9, Sodium Level 148H, Potassium Level 3.1L, Chloride Level 106, Carbon Dioxide Level 24, Anion Gap 18H, Blood Urea Nitrogen 61H, Creatinine 7.7H, Estimat Glomerular Filtration Rate 7.1, Glucose Level 233H , Calcium Level 9.4, Phosphorus Level 3.2, Magnesium Level 2.4, Total Bilirubin 0.1L, Aspartate Amino Transf (AST/SGOT) 28, Alanine Aminotransferase (ALT/SGPT) 16, Alkaline Phosphatase 114, Total Protein 9.3H, Albumin 2.8L, Globulin 6.5, Albumin/Globulin Ratio 0.4L, Random Vancomycin Level 17.4 08/11/19 06:45: POC Whole Blood Glucose 272H 08/11/19 11:58: POC Whole Blood Glucose 267H Height (Feet): 6 Height (Inches): 1.00 Weight (Pounds): 170 General Appearance: no apparent distress Cardiovascular: tachycardia Respiratory/Chest: decreased breath sounds Abdomen: distended Objective No change Mic Cole MD Aug 11, 2019 13:33
[2019-08-11 16:00] VITALS: BP 122/72
--- NOTE | 2019-08-11 16:13 | Infectious Diseases Prog Note ---
Assessment/Plan Assessment/Plan IMPRESSION: 1. COVID19 pneumonia Positive: 05/27, 05/31 , 06/05, 06/09 ,5, 06/19, 06/23, 06/27, 07/03, 07/15, 07/29 Negative: 07/26, 08/04, 08/05 2. MRSA carrier. 3. Chronic kidney disease , end-stage renal disease. 4. COPD. 5. Hypertension. 6. Anemia. 7. Hypothyroidism. 8. Hyperlipidemia. 9. Major depression. 10. Leukocytosis 11. Hypotension 12. Hepatitis C 13. Hyperuricemia 14. Diarrhea, C difficile negative 15. septic shock 16.Sepsis Catheter tip yeast blood culture: Gram positive cocci 17. Pneumonia with Staph aureus ( MRSA) 18. Bacteremia with Staph coagulase negative RECOMMENDATIONS: Continue IV Vancomycin Discontinue Zosyn Start on Micafungin Will f/u cultures Subjective ROS Limited/Unobtainable: Yes Constitutional: Reports: fever, other - Tq=455.7 Allergies: Coded Allergies: No Known Allergies (Unverified , 05/28/19) Objective Last 24 Hour Vital Signs Date Time Temp Pulse Resp B/P (MAP) Pulse Ox O2 Delivery O2 Flow Rate FiO2 08/11/19 16:00 100.4 131 22 122/72 (89) 100 08/11/19 16:00 30 08/11/19 15:53 100.4 08/11/19 15:30 100.9 135 08/11/19 14:55 130 30 30 08/11/19 12:26 133 28 30 08/11/19 12:00 99.5 130 22 102/61 (75) 100 08/11/19 12:00 131 08/11/19 12:00 30 08/11/19 12:00 Mechanical Ventilator 08/11/19 10:06 100 08/11/19 08:00 125 08/11/19 08:00 30 08/11/19 08:00 Mechanical Ventilator 08/11/19 07:48 125 27 30 08/11/19 07:47 98.6 112 22 113/72 (86) 100 08/11/19 04:00 131 08/11/19 04:00 30 08/11/19 04:00 Mechanical Ventilator 08/11/19 04:00 101.7 131 22 109/68 (82) 100 08/11/19 02:47 126 26 30 08/11/19 00:00 98.2 130 22 117/72 (87) 100 08/11/19 00:00 30 08/11/19 00:00 131 08/11/19 00:00 Mechanical Ventilator 08/10/19 22:53 127 26 30 08/10/19 20:00 98.2 122 22 112/71 (85) 100 08/10/19 20:00 30 08/10/19 20:00 Mechanical Ventilator 08/10/19 20:00 123 08/10/19 19:40 124 26 30 Height (Feet): 6 Height (Inches): 1.00 Weight (Pounds): 170 HEENT: status post trach Respiratory/Chest: lungs clear, other - on ventilator Cardiovascular: tachycardia Abdomen: soft, non tender, other - GT feeding Extremities: no edema Neurologic/Psychiatric: aphasia Microbiology Date/Time Source Procedure Growth Status 08/09/19 14:30 Blood Blood Culture - Preliminary NO GROWTH AFTER 24 HOURS Resulted 08/09/19 14:00 Blood Blood Culture - Preliminary Gram Positive Cocci Resulted 08/09/19 14:00 Stool Clostridium difficile Toxin Assay - Final Complete 08/09/19 14:00 Catheter Site Catheter Tip Culture - Preliminary YEAST Resulted Laboratory Tests Test 08/11/19 01:00 08/11/19 03:00 08/11/19 06:45 08/11/19 11:58 POC Whole Blood Glucose 261 MG/DL (74-106) H 272 MG/DL (74-106) H 267 MG/DL (74-106) H White Blood Count 11.5 K/UL (4.8-10.8) H Red Blood Count 3.84 M/UL (4.70-6.10) L Hemoglobin 10.8 G/DL (14.2-18.0) L Hematocrit 36.8 % (42.0-52.0) L Mean Corpuscular Volume 96 FL (80-99) Mean Corpuscular Hemoglobin 28.1 PG (27.0-31.0) Mean Corpuscular Hemoglobin Concent 29.3 G/DL (32.0-36.0) L Red Cell Distribution Width 17.7 % (11.6-14.8) H Platelet Count 393 K/UL (150-450) Mean Platelet Volume 7.5 FL (6.5-10.1) Neutrophils (%) (Auto) 73.0 % (45.0-75.0) Lymphocytes (%) (Auto) 16.6 % (20.0-45.0) L Monocytes (%) (Auto) 8.8 % (1.0-10.0) Eosinophils (%) (Auto) 0.6 % (0.0-3.0) Basophils (%) (Auto) 0.9 % (0.0-2.0) Sodium Level 148 MMOL/L (136-145) H Potassium Level 3.1 MMOL/L (3.5-5.1) L Chloride Level 106 MMOL/L (98-107) Carbon Dioxide Level 24 MMOL/L (21-32) Anion Gap 18 mmol/L (5-15) H Blood Urea Nitrogen 61 mg/dL (7-18) H Creatinine 7.7 MG/DL (0.55-1.30) H Estimat Glomerular Filtration Rate 7.1 mL/min (>60) Glucose Level 233 MG/DL (74-106) H Calcium Level 9.4 MG/DL (8.5-10.1) Phosphorus Level 3.2 MG/DL (2.5-4.9) Magnesium Level 2.4 MG/DL (1.8-2.4) Total Bilirubin 0.1 MG/DL (0.2-1.0) L Aspartate Amino Transf (AST/SGOT) 28 U/L (15-37) Alanine Aminotransferase (ALT/SGPT) 16 U/L (12-78) Alkaline Phosphatase 114 U/L (46-116) Total Protein 9.3 G/DL (6.4-8.2) H Albumin 2.8 G/DL (3.4-5.0) L Globulin 6.5 g/dL Albumin/Globulin Ratio 0.4 (1.0-2.7) L Random Vancomycin Level 17.4 ug/mL Current Medications Medications (Trade) Dose Ordered Sig/Anthony Route PRN Reason Start Time Stop Time Status Last Admin Dose Admin Acetaminophen (Tylenol) 650 mg Q4H PRN GT Temp >100.5 08/09/19 08:30 09/08/19 08:29 08/11/19 15:23 Acetaminophen (Tylenol) 650 mg Q4H PRN NG For Pain 08/04/19 21:38 09/03/19 21:37 08/08/19 17:08 Chlorhexidine Gluconate (Michelle-Hex 2%) 1 applic DAILY@2000 TOPIC 08/05/19 20:00 09/05/19 19:59 08/10/19 20:03 Dextrose (Dextrose 50%) 25 ml Q30M PRN IV Hypoglycemia 08/04/19 22:00 09/18/19 19:29 Dextrose (Dextrose 50%) 50 ml Q30M PRN IV Hypoglycemia 08/04/19 22:00 09/18/19 19:29 Enoxaparin Sodium (Lovenox) 30 mg DAILY SUBQ 08/05/19 09:00 08/27/19 08:59 08/11/19 08:48 Epoetin Aftab (Epoetin Aftab(ESRD on dialysis)) 10,000 unit SUBQ 08/11/19 21:00 11/09/19 20:59 Haloperidol Lactate 5 mg/ Dextrose 56 ml @ 224 mls/hr Q6H PRN IVPB Agitation 08/04/19 21:38 09/18/19 21:37 Hydralazine HCl (Apresoline) 10 mg Q4H PRN IV Blood pressure over 160 systol 08/04/19 21:39 11/02/19 21:38 Insulin Aspart (NovoLOG) EVERY 6 HOURS SUBQ 08/05/19 00:00 09/19/19 00:00 08/11/19 12:23 Loperamide HCl (Imodium) 2 mg Q6H PRN NG Diarrhea 08/11/19 10:15 09/10/19 10:14 Lorazepam (Ativan 2mg/ml 1ml) 0.5 mg Q2H PRN IV For Anxiety 08/04/19 21:39 08/11/19 21:38 08/10/19 11:50 Metoclopramide HCl (Reglan) 5 mg Q8HR IVP 08/05/19 06:00 09/04/19 05:59 08/11/19 15:23 Pantoprazole (Protonix) 40 mg DAILY IVP 08/05/19 09:00 08/26/19 08:59 08/11/19 09:03 Piperacillin Sod/ Tazobactam Sod 2.25 gm/Dextrose 55 ml @ 110 mls/hr Q8HR IVPB 08/11/19 22:00 08/18/19 21:59 Vancomycin HCl (Vanco pharmacy to dose) 1 ea DAILY PRN MISC Per rx protocol 08/05/19 09:00 08/19/19 10:44 Ted Leyva MD Aug 11, 2019 16:13
--- NOTE | 2019-08-11 16:46 | Surgery Progress Note ---
Surgery Progress Note Subjective Procedure Performed Left internal jugular temporary hemodialysis catheter removal Additional Comments Patient was significant improvement recently and even considerations for discharge planning but developed fever 102 yesterday and now with leukocytosis as well. Discussed with PCP and infectious disease Objective Last 24 Hour Vital Signs Date Time Temp Pulse Resp B/P (MAP) Pulse Ox O2 Delivery O2 Flow Rate FiO2 08/11/19 16:00 Mechanical Ventilator 08/11/19 16:00 100.4 131 22 122/72 (89) 100 08/11/19 16:00 30 08/11/19 15:53 100.4 08/11/19 15:30 100.9 135 08/11/19 14:55 130 30 30 08/11/19 12:26 133 28 30 08/11/19 12:00 99.5 130 22 102/61 (75) 100 08/11/19 12:00 131 08/11/19 12:00 30 08/11/19 12:00 Mechanical Ventilator 08/11/19 10:06 100 08/11/19 08:00 125 08/11/19 08:00 30 08/11/19 08:00 Mechanical Ventilator 08/11/19 07:48 125 27 30 08/11/19 07:47 98.6 112 22 113/72 (86) 100 08/11/19 04:00 131 08/11/19 04:00 30 08/11/19 04:00 Mechanical Ventilator 08/11/19 04:00 101.7 131 22 109/68 (82) 100 08/11/19 02:47 126 26 30 08/11/19 00:00 98.2 130 22 117/72 (87) 100 08/11/19 00:00 30 08/11/19 00:00 131 08/11/19 00:00 Mechanical Ventilator 08/10/19 22:53 127 26 30 08/10/19 20:00 98.2 122 22 112/71 (85) 100 08/10/19 20:00 30 08/10/19 20:00 Mechanical Ventilator 08/10/19 20:00 123 08/10/19 19:40 124 26 30 I&O Intake and Output 08/10/19 08/11/19 19:00 07:00 Intake Total 645 ml 750.0 ml Output Total 2000 ml 700 ml Balance -1355 ml 50.0 ml Free Water 150 ml 100 ml IV Total 110.0 ml Tube Feeding 495 ml 540 ml Stool Total 700 ml Hemodialysis UF 2000 ml Dressing: other Wound: other Drains: other Cardiovascular: RSR Respiratory: decreased breath sounds Abdomen: soft, non-tender, present bowel sounds Extremities: no cyanosis Laboratory Tests Test 08/11/19 01:00 08/11/19 03:00 08/11/19 06:45 08/11/19 11:58 POC Whole Blood Glucose 261 MG/DL (74-106) H 272 MG/DL (74-106) H 267 MG/DL (74-106) H White Blood Count 11.5 K/UL (4.8-10.8) H Red Blood Count 3.84 M/UL (4.70-6.10) L Hemoglobin 10.8 G/DL (14.2-18.0) L Hematocrit 36.8 % (42.0-52.0) L Mean Corpuscular Volume 96 FL (80-99) Mean Corpuscular Hemoglobin 28.1 PG (27.0-31.0) Mean Corpuscular Hemoglobin Concent 29.3 G/DL (32.0-36.0) L Red Cell Distribution Width 17.7 % (11.6-14.8) H Platelet Count 393 K/UL (150-450) Mean Platelet Volume 7.5 FL (6.5-10.1) Neutrophils (%) (Auto) 73.0 % (45.0-75.0) Lymphocytes (%) (Auto) 16.6 % (20.0-45.0) L Monocytes (%) (Auto) 8.8 % (1.0-10.0) Eosinophils (%) (Auto) 0.6 % (0.0-3.0) Basophils (%) (Auto) 0.9 % (0.0-2.0) Sodium Level 148 MMOL/L (136-145) H Potassium Level 3.1 MMOL/L (3.5-5.1) L Chloride Level 106 MMOL/L (98-107) Carbon Dioxide Level 24 MMOL/L (21-32) Anion Gap 18 mmol/L (5-15) H Blood Urea Nitrogen 61 mg/dL (7-18) H Creatinine 7.7 MG/DL (0.55-1.30) H Estimat Glomerular Filtration Rate 7.1 mL/min (>60) Glucose Level 233 MG/DL (74-106) H Calcium Level 9.4 MG/DL (8.5-10.1) Phosphorus Level 3.2 MG/DL (2.5-4.9) Magnesium Level 2.4 MG/DL (1.8-2.4) Total Bilirubin 0.1 MG/DL (0.2-1.0) L Aspartate Amino Transf (AST/SGOT) 28 U/L (15-37) Alanine Aminotransferase (ALT/SGPT) 16 U/L (12-78) Alkaline Phosphatase 114 U/L (46-116) Total Protein 9.3 G/DL (6.4-8.2) H Albumin 2.8 G/DL (3.4-5.0) L Globulin 6.5 g/dL Albumin/Globulin Ratio 0.4 (1.0-2.7) L Random Vancomycin Level 17.4 ug/mL Plan Problems: (1) Suspected COVID-19 virus infection (2) HTN (hypertension) (3) CASSANDRA (acute kidney injury) Assessment & Plan: Needs urgent HD needs access patient okay and consented see note will follow with recs new line placed discussed with team and nephrology HD line functional when checked has TPA now please use appropriately Cathflo used again this flow during dialysis on 430 was low. Will monitor may need line change 5/4 plan for HD as per renal may need to take fluid off with HD edema anasarca dressings saturated and changed will monitor cont with HD IJ left line placed for HD given extent of prior line in place. leukocytosis blood cx negative may need to change out line new line okay HD going well Continue HD as tolerated May need pressors for HD as needed (4) Anemia in chronic kidney disease (CKD) (5) Anemia (6) Renal failure (7) Suspected COVID-19 virus infection Assessment & Plan: Pt deconditioned and despite all skin preventions Pt noted to have developed several pressure injuries. . Stable dry eschar noted to clefts of R and L ears. No erythema noted . DTPI noted to L trochanter. Base of injury is maroon in colour with marginal erythema along borders. Partially opened DTPI Sacrum, R and L Buttocks. Base of wound is maroon with two small open wounds L sacrum and L buttocks. Pt has an APM/MOMO Mattress overlay and is being positioned with pillows as per tolerance and within protocols. worsening despite medical efforts will cont to provide therapy Tx.Plan: Apply Cavilon Skin Barrier to both ears Daily and prn. Apply Moisture Barrier Paste to Sacrum,R and L Buttocks. Cover with Optifoam drsgs. Change every 3 days and PRN. Apply Cavilon Skin Barrier to R and L trochanter. Cover each site with Optifoam drsgs.Change every 7 days and PRN. Apply Cavilon Skin Barrier to both heels. Cover each heel with Optifoam drsg. Change every 7 days and prn. Off-load heels with pillow. Reposition at least every 2hours or as tolerated. APM/MOMO Mattress overlay. (8) COVID-19 Assessment & Plan: COVID + c diff negative febrile leukocytosis renal insufficiency see above cont resp care Rx as per ID worsening on vent support now cxr noted on pressors prognosis guarded repeat covid ++ weaning vent and pressors off slowly showing improvement slowly recovering will need trach as unable to wean vent safely called and spoke with [facility]. consent obtained s/p trach pending peg worsening on levo max (9) Sepsis Assessment & Plan: worsening leukocytosis febrile on pressors discussed with ID. lines evaluated and clean. he is septic on pressors and needs central access in difficult venous access patient blood cultures negative will monitor temp HD cath out now with permacath left tlc still subclavian needed line c/d/i line negative c diff negative wbc resolved improved d/c planning febrile leukocytosis hold d/c infectious work up in place Yaniv Mast Aug 11, 2019 16:46
[2019-08-11] MEDS: Micafungin 100 MG in NS 110 ML IVPB SCH (18:00)
[2019-08-11 20:00] VITALS: BP 121/70
[2019-08-11] MEDS: Epoetin Alfa-EPBX(ESRD on dialysis)10,000 unit/ml vial SUBQ SCH (20:04)
[2019-08-11] MEDS: Dyna-Hex 2% Top Sol 2oz TOPIC SCH (20:04)
--- NOTE | 2019-08-11 20:49 | General Progress Note ---
Assessment/Plan Problem List: (1) HTN (hypertension) ICD Codes: I10 - Essential (primary) hypertension SNOMED: 47886342 (2) CASSANDRA (acute kidney injury) ICD Codes: N17.9 - Acute kidney failure, unspecified SNOMED: 9949533, 57812291 (3) Anemia in chronic kidney disease (CKD) ICD Codes: N18.9 - Chronic kidney disease, unspecified; D63.1 - Anemia in chronic kidney disease SNOMED: 457343248 (4) Renal failure ICD Codes: N19 - Unspecified kidney failure SNOMED: 56741828 (5) Respiratory failure requiring intubation ICD Codes: J96.90 - Respiratory failure, unspecified, unspecified whether with hypoxia or hypercapnia; A41.89 - Other specified sepsis SNOMED: 132675154, 688502989 (6) Pneumonia due to COVID-19 virus ICD Codes: U07.1 - COVID-19; J12.89 - Other viral pneumonia SNOMED: 782337795, 126048576 (7) Sepsis due to severe acute respiratory syndrome coronavirus 2 (SARS-CoV-2) ICD Codes: U07.1 - COVID-19; A41.89 - Other specified sepsis SNOMED: 229753321, 066309041 Status: progressing, unchanged, deteriorating Assessment/Plan: intermittent fever worsening sepsis trach and peg abx per id diaylsis per renal needs placement lytes ok Subjective ROS Limited/Unobtainable: Yes Allergies: Coded Allergies: No Known Allergies (Unverified , 05/28/19) Objective Last 24 Hour Vital Signs Date Time Temp Pulse Resp B/P (MAP) Pulse Ox O2 Delivery O2 Flow Rate FiO2 08/11/19 19:30 121 27 30 08/11/19 16:00 Mechanical Ventilator 08/11/19 16:00 100.4 131 22 122/72 (89) 100 08/11/19 16:00 30 08/11/19 16:00 139 08/11/19 15:53 100.4 08/11/19 15:30 100.9 135 08/11/19 14:55 130 30 30 08/11/19 12:26 133 28 30 08/11/19 12:00 99.5 130 22 102/61 (75) 100 08/11/19 12:00 131 08/11/19 12:00 30 08/11/19 12:00 Mechanical Ventilator 08/11/19 10:06 100 08/11/19 08:00 125 08/11/19 08:00 30 08/11/19 08:00 Mechanical Ventilator 08/11/19 07:48 125 27 30 08/11/19 07:47 98.6 112 22 113/72 (86) 100 08/11/19 04:00 131 08/11/19 04:00 30 08/11/19 04:00 Mechanical Ventilator 08/11/19 04:00 101.7 131 22 109/68 (82) 100 08/11/19 02:47 126 26 30 08/11/19 00:00 98.2 130 22 117/72 (87) 100 08/11/19 00:00 30 08/11/19 00:00 131 08/11/19 00:00 Mechanical Ventilator 08/10/19 22:53 127 26 30 Intake and Output 08/10/19 08/11/19 19:00 07:00 Intake Total 645 ml 750.0 ml Output Total 2000 ml 700 ml Balance -1355 ml 50.0 ml Free Water 150 ml 100 ml IV Total 110.0 ml Tube Feeding 495 ml 540 ml Stool Total 700 ml Hemodialysis UF 2000 ml Laboratory Tests 08/11/19 01:00: POC Whole Blood Glucose 261H 08/11/19 03:00: White Blood Count 11.5H, Red Blood Count 3.84L, Hemoglobin 10.8L, Hematocrit 36.8L, Mean Corpuscular Volume 96, Mean Corpuscular Hemoglobin 28.1, Mean Corpuscular Hemoglobin Concent 29.3L, Red Cell Distribution Width 17.7H, Platelet Count 393, Mean Platelet Volume 7.5, Neutrophils (%) (Auto) 73.0, Lymphocytes (%) (Auto) 16.6L, Monocytes (%) (Auto) 8.8, Eosinophils (%) (Auto) 0.6, Basophils (%) (Auto) 0.9, Sodium Level 148H, Potassium Level 3.1L, Chloride Level 106, Carbon Dioxide Level 24, Anion Gap 18H, Blood Urea Nitrogen 61H, Creatinine 7.7H, Estimat Glomerular Filtration Rate 7.1, Glucose Level 233H , Calcium Level 9.4, Phosphorus Level 3.2, Magnesium Level 2.4, Total Bilirubin 0.1L, Aspartate Amino Transf (AST/SGOT) 28, Alanine Aminotransferase (ALT/SGPT) 16, Alkaline Phosphatase 114, Total Protein 9.3H, Albumin 2.8L, Globulin 6.5, Albumin/Globulin Ratio 0.4L, Random Vancomycin Level 17.4 08/11/19 06:45: POC Whole Blood Glucose 272H 08/11/19 11:58: POC Whole Blood Glucose 267H Height (Feet): 6 Height (Inches): 1.00 Weight (Pounds): 170 Karishma Mulligan MD Aug 11, 2019 20:49
--- NOTE | 2019-08-11 21:27 | Pulmonolgy Critical Care Note ---
Critical Care - Asmt/Plan Assessment/Plan: Pulmonary CCM Progress Note HPI: Patient is a 68 year old man, [facility] resident, admitted c/o shortness of breath, cough, noted to have Covid 19 Pneumonia, Respiratory Failure Remains on Ventilator, CXR infiltrates stable Anemia CKD on HD - on Mitodrine, not tolerating weaning, will need eventual placement, second consecutiverepeat COVID19 test negative Preserved EF FIO2 30%, P5, adequate O2 sats, remains on ACVC, s/p Tracheostomy previously, sp PEG Fevers today, line removed On AB per ID for coagulase negative staph MRSA sputum Seen earlier Past Medical History: COPD, CKD, Hypertension, Anemia Allergies: No Known Allergies Improving Pulmonary Status on HD Physical Exam Vital Signs Noted Stable on ventilator Chronically ill appearing Deferred Covid19 Impression: COVID-19 virus infection Pneumonia Respiratory failure on ventilator, wean as tolerated once off pressors CKD - on HD Hypotension on pressors previously Cardiomegaly Leukocytosis Elevated AST COPD Chronic Kidney Disease - HD H/o Hypertension Worsening anemia sepsis sinus tachycardia Plan: trach care as is Antibiotics per ID HD per renal monitor vitals AC -joseph as tolerated anxiolytics if needed 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 if needed; Monitor lab data nutrition feeds Hemodialysis per Renal impression, plan, and exam edited and reviewed in detail care discussed with RN Laboratory Tests Noted: CXR: Hypoventilatory exam, interstitial changes, cardiomegaly, improving infiltrates Subjective ROS Limited/Unobtainable: No Constitutional: Denies: fever Respiratory: Reports: dry cough, shortness of breath Gastrointestinal/Abdominal: Reports: diarrhea, other - colace was stopped Psychiatric: Reports: other - refuses labs Allergies: Coded Allergies: No Known Allergies (Unverified , 05/28/19) All Systems: reviewed and negative except above Labs noted Critical Care - Objective Last 24 Hour Vital Signs Date Time Temp Pulse Resp B/P (MAP) Pulse Ox O2 Delivery O2 Flow Rate FiO2 08/11/19 19:30 121 27 30 08/11/19 16:00 Mechanical Ventilator 08/11/19 16:00 100.4 131 22 122/72 (89) 100 08/11/19 16:00 30 08/11/19 16:00 139 08/11/19 15:53 100.4 08/11/19 15:30 100.9 135 08/11/19 14:55 130 30 30 08/11/19 12:26 133 28 30 08/11/19 12:00 99.5 130 22 102/61 (75) 100 08/11/19 12:00 131 08/11/19 12:00 30 08/11/19 12:00 Mechanical Ventilator 08/11/19 10:06 100 08/11/19 08:00 125 08/11/19 08:00 30 08/11/19 08:00 Mechanical Ventilator 08/11/19 07:48 125 27 30 08/11/19 07:47 98.6 112 22 113/72 (86) 100 08/11/19 04:00 131 08/11/19 04:00 30 08/11/19 04:00 Mechanical Ventilator 08/11/19 04:00 101.7 131 22 109/68 (82) 100 08/11/19 02:47 126 26 30 08/11/19 00:00 98.2 130 22 117/72 (87) 100 08/11/19 00:00 30 08/11/19 00:00 131 08/11/19 00:00 Mechanical Ventilator 08/10/19 22:53 127 26 30 Micro: Microbiology Date/Time Source Procedure Growth Status 08/09/19 14:30 Blood Blood Culture - Preliminary NO GROWTH AFTER 24 HOURS Resulted 08/09/19 14:00 Blood Blood Culture - Preliminary Gram Positive Cocci Resulted 08/09/19 14:00 Stool Clostridium difficile Toxin Assay - Final Complete 08/09/19 14:00 Catheter Site Catheter Tip Culture - Preliminary YEAST Resulted Accucheck: 289 Critical Care - Subjective ROS Limited/Unobtainable: No Condition: stable FI02: 30 Vent Support Breath Rate: 26 Vent Support Mode: AC Vent Tidal Volume: 500 Sputum Amount: Small PEEP: 5.0 PIP: 29 Tube Feeding Amount: 40 I&O: Intake and Output 08/10/19 08/11/19 19:00 07:00 Intake Total 645 ml 750.0 ml Output Total 2000 ml 700 ml Balance -1355 ml 50.0 ml Free Water 150 ml 100 ml IV Total 110.0 ml Tube Feeding 495 ml 540 ml Stool Total 700 ml Hemodialysis UF 2000 ml ET-Tube: 7.5 ET Position: 24 Arturo Mckeon MD Aug 11, 2019 21:27
[2019-08-11] MEDS ORDERED: Piperacillin/Tazobactam 2.25 GM in D5W 55 ML IVPB SCH (22:00)
--- NOTE | 2019-08-11 22:41 | Psych Consult Progress Note ---
Psychiatry Progress Note Psychiatry Progress Note Subjective the pt is the same conused and still pulling lines. Medications Current Medications Medications (Trade) Dose Ordered Sig/Anthony Route PRN Reason Start Time Stop Time Status Last Admin Dose Admin Acetaminophen (Tylenol) 650 mg Q4H PRN GT Temp >100.5 08/09/19 08:30 09/08/19 08:29 08/11/19 21:54 Acetaminophen (Tylenol) 650 mg Q4H PRN NG For Pain 08/04/19 21:38 09/03/19 21:37 08/08/19 17:08 Chlorhexidine Gluconate (Michelle-Hex 2%) 1 applic DAILY@2000 TOPIC 08/05/19 20:00 09/05/19 19:59 08/11/19 20:04 Dextrose (Dextrose 50%) 25 ml Q30M PRN IV Hypoglycemia 08/04/19 22:00 09/18/19 19:29 Dextrose (Dextrose 50%) 50 ml Q30M PRN IV Hypoglycemia 08/04/19 22:00 09/18/19 19:29 Enoxaparin Sodium (Lovenox) 30 mg DAILY SUBQ 08/05/19 09:00 08/27/19 08:59 08/11/19 08:48 Epoetin Aftab (Epoetin Aftab(ESRD on dialysis)) 10,000 unit FRI-FRI-FRI SUBQ 08/11/19 21:00 11/09/19 20:59 08/11/19 20:04 Haloperidol Lactate 5 mg/ Dextrose 56 ml @ 224 mls/hr Q6H PRN IVPB Agitation 08/04/19 21:38 09/18/19 21:37 Hydralazine HCl (Apresoline) 10 mg Q4H PRN IV Blood pressure over 160 systol 08/04/19 21:39 11/02/19 21:38 Insulin Aspart (NovoLOG) EVERY 6 HOURS SUBQ 08/05/19 00:00 09/19/19 00:00 08/11/19 18:14 Loperamide HCl (Imodium) 2 mg Q6H PRN NG Diarrhea 08/11/19 10:15 09/10/19 10:14 08/11/19 21:53 Metoclopramide HCl (Reglan) 5 mg Q8HR IVP 08/05/19 06:00 09/04/19 05:59 08/11/19 21:53 Micafungin Sodium 100 mg/Sodium Chloride 110 ml @ 110 mls/hr Q24H IVPB 08/11/19 18:00 08/18/19 17:59 08/11/19 18:00 Pantoprazole (Protonix) 40 mg DAILY IVP 08/05/19 09:00 08/26/19 08:59 08/11/19 09:03 Vancomycin HCl (Vanco pharmacy to dose) 1 ea DAILY PRN MISC Per rx protocol 08/05/19 09:00 08/19/19 10:44 Allergies: Coded Allergies: No Known Allergies (Unverified , 05/28/19) Objective Data Height (Feet): 6 Height (Inches): 1.00 Weight (Pounds): 170 Additional Comments: Mood is neutral. Eyes are closed. Thought process, there is a paucity of thought content. Thought content, no suicidal or homicidal ideation. Cognition is impaired. Insight and judgment is impaired. ASSESSMENT: Acute encephalopathy. PLAN: 1. The patient is off all psychotropic medications. Assessment/Plan Status: progressing, unchanged, deteriorating Assessment/Plan: The pt benefits from restraints cont psychotropic meds dw nurse Depakote Sprinkles 250 mg b.i.d. Guicho Pimentel MD Aug 11, 2019 22:41
[2019-08-12] VITALS: BP 128/64
[2019-08-12 04:00] VITALS: BP 127/84
[2019-08-12 04:46] LABS: EOSINOPHILS % (AUTO) 1.3 % (0.0-3.0); HEMATOCRIT 35.7 % (42.0-52.0); HEMOGLOBIN 10.5 G/DL (14.2-18.0); LYMPHOCYTES % (AUTO) 17.1 % (20.0-45.0); MEAN CORPUSCULAR VOLUME 95 FL (80-99); MONOCYTES % (AUTO) 6.6 % (1.0-10.0); PLATELET COUNT 404 K/UL (150-450); RED BLOOD COUNT 3.74 M/UL (4.70-6.10); RED CELL DISTRIBUTION WIDTH 17.5 % (11.6-14.8); WHITE BLOOD COUNT 12.3 K/UL (4.8-10.8)
[2019-08-12 05:28] LABS: ALANINE AMINOTRANSFERASE 17 U/L (12-78); ALBUMIN/GLOBULIN RATIO 0.5 (1.0-2.7); ALKALINE PHOSPHATASE 136 U/L (46-116); ANION GAP 21 mmol/L (5-15); ASPARTATE AMINO TRANSFERASE 22 U/L (15-37); BILIRUBIN,TOTAL 0.4 MG/DL (0.2-1.0); BLOOD UREA NITROGEN 77 mg/dL (7-18); CALCIUM 9.6 MG/DL (8.5-10.1); CARBON DIOXIDE 22 MMOL/L (21-32); CHLORIDE 109 MMOL/L (98-107); CREATININE 8.9 MG/DL (0.55-1.30); POTASSIUM 3.2 MMOL/L (3.5-5.1); SODIUM 152 MMOL/L (136-145)
[2019-08-12] MEDS: NovoLOG Insulin Flexpen SUBQ SCH ×4 (06:00→23:12)
[2019-08-12] MEDS: Metoclopramide 10mg/2ml Inj IVP SCH ×3 (06:00→23:11)
[2019-08-12 08:00] VITALS: BP 102/70
[2019-08-12] MEDS: Pantoprazole Inj IVP SCH (08:32)
[2019-08-12] MEDS: Enoxaparin 30mg Inj SUBQ SCH (08:33)
--- NOTE | 2019-08-12 08:58 | Surgery Progress Note ---
Surgery Progress Note Subjective Procedure Performed Left internal jugular temporary hemodialysis catheter removal Additional Comments worsening fevers worsening leukocytosis yeast in cultures noted appreciate ID input Objective Last 24 Hour Vital Signs Date Time Temp Pulse Resp B/P (MAP) Pulse Ox O2 Delivery O2 Flow Rate FiO2 08/12/19 08:00 30 08/12/19 08:00 96.8 118 26 102/70 (81) 100 08/12/19 07:21 121 29 30 08/12/19 04:00 137 08/12/19 04:00 101.8 137 29 127/84 (98) 100 08/12/19 04:00 Mechanical Ventilator Mechanical Ventilator 08/12/19 04:00 30 08/12/19 03:30 134 32 30 08/12/19 00:00 Mechanical Ventilator Mechanical Ventilator 08/12/19 00:00 99.5 105 28 128/64 (85) 100 08/11/19 23:34 129 08/11/19 23:30 122 32 30 08/11/19 20:00 Mechanical Ventilator 08/11/19 20:00 30 08/11/19 20:00 Mechanical Ventilator Mechanical Ventilator 08/11/19 20:00 131 08/11/19 20:00 99.9 120 27 121/70 (87) 100 08/11/19 19:30 121 27 30 08/11/19 16:00 Mechanical Ventilator 08/11/19 16:00 100.4 131 22 122/72 (89) 100 08/11/19 16:00 30 08/11/19 16:00 139 08/11/19 15:53 100.4 08/11/19 15:30 100.9 135 08/11/19 14:55 130 30 30 08/11/19 12:26 133 28 30 08/11/19 12:00 99.5 130 22 102/61 (75) 100 08/11/19 12:00 131 08/11/19 12:00 30 08/11/19 12:00 Mechanical Ventilator 08/11/19 10:06 100 I&O Intake and Output 08/11/19 08/12/19 19:00 07:00 Intake Total 1415.000 ml 500 ml Output Total 600 ml 500 ml Balance 815.000 ml 0 ml Free Water 50 ml 60 ml IV Total 385.000 ml Tube Feeding 930 ml 440 ml Other 50 ml Stool Total 600 ml 500 ml Dressing: other Wound: other Drains: other Cardiovascular: RSR Respiratory: decreased breath sounds Abdomen: soft, present bowel sounds Extremities: no cyanosis Laboratory Tests Test 08/11/19 11:58 08/12/19 03:15 POC Whole Blood Glucose 267 MG/DL (74-106) H White Blood Count 12.3 K/UL (4.8-10.8) H Red Blood Count 3.74 M/UL (4.70-6.10) L Hemoglobin 10.5 G/DL (14.2-18.0) L Hematocrit 35.7 % (42.0-52.0) L Mean Corpuscular Volume 95 FL (80-99) Mean Corpuscular Hemoglobin 28.0 PG (27.0-31.0) Mean Corpuscular Hemoglobin Concent 29.4 G/DL (32.0-36.0) L Red Cell Distribution Width 17.5 % (11.6-14.8) H Platelet Count 404 K/UL (150-450) Mean Platelet Volume 7.1 FL (6.5-10.1) Neutrophils (%) (Auto) 74.0 % (45.0-75.0) Lymphocytes (%) (Auto) 17.1 % (20.0-45.0) L Monocytes (%) (Auto) 6.6 % (1.0-10.0) Eosinophils (%) (Auto) 1.3 % (0.0-3.0) Basophils (%) (Auto) 1.0 % (0.0-2.0) Sodium Level 152 MMOL/L (136-145) H Potassium Level 3.2 MMOL/L (3.5-5.1) L Chloride Level 109 MMOL/L (98-107) H Carbon Dioxide Level 22 MMOL/L (21-32) Anion Gap 21 mmol/L (5-15) H Blood Urea Nitrogen 77 mg/dL (7-18) H Creatinine 8.9 MG/DL (0.55-1.30) H Estimat Glomerular Filtration Rate 6.0 mL/min (>60) Glucose Level 238 MG/DL (74-106) H Calcium Level 9.6 MG/DL (8.5-10.1) Total Bilirubin 0.4 MG/DL (0.2-1.0) Aspartate Amino Transf (AST/SGOT) 22 U/L (15-37) Alanine Aminotransferase (ALT/SGPT) 17 U/L (12-78) Alkaline Phosphatase 136 U/L (46-116) H Total Protein 9.6 G/DL (6.4-8.2) H Albumin 3.0 G/DL (3.4-5.0) L Globulin 6.6 g/dL Albumin/Globulin Ratio 0.5 (1.0-2.7) L Plan Problems: (1) Suspected COVID-19 virus infection (2) HTN (hypertension) (3) CASSANDRA (acute kidney injury) Assessment & Plan: Needs urgent HD needs access patient okay and consented see note will follow with recs new line placed discussed with team and nephrology HD line functional when checked has TPA now please use appropriately Cathflo used again this flow during dialysis on 430 was low. Will monitor may need line change 5/ plan for HD as per renal may need to take fluid off with HD edema anasarca dressings saturated and changed will monitor cont with HD IJ left line placed for HD given extent of prior line in place. leukocytosis blood cx negative may need to change out line new line okay HD going well Continue HD as tolerated May need pressors for HD as needed (4) Anemia in chronic kidney disease (CKD) (5) Anemia (6) Renal failure (7) Suspected COVID-19 virus infection Assessment & Plan: Pt deconditioned and despite all skin preventions Pt noted to have developed several pressure injuries. . Stable dry eschar noted to clefts of R and L ears. No erythema noted . DTPI noted to L trochanter. Base of injury is maroon in colour with marginal erythema along borders. Partially opened DTPI Sacrum, R and L Buttocks. Base of wound is maroon with two small open wounds L sacrum and L buttocks. Pt has an APM/MOMO Mattress overlay and is being positioned with pillows as per tolerance and within protocols. worsening despite medical efforts will cont to provide therapy Tx.Plan: Apply Cavilon Skin Barrier to both ears Daily and prn. Apply Moisture Barrier Paste to Sacrum,R and L Buttocks. Cover with Optifoam drsgs. Change every 3 days and PRN. Apply Cavilon Skin Barrier to R and L trochanter. Cover each site with Optifoam drsgs.Change every 7 days and PRN. Apply Cavilon Skin Barrier to both heels. Cover each heel with Optifoam drsg. Change every 7 days and prn. Off-load heels with pillow. Reposition at least every 2hours or as tolerated. APM/MOMO Mattress overlay. (8) COVID-19 Assessment & Plan: COVID + c diff negative febrile leukocytosis renal insufficiency see above cont resp care Rx as per ID worsening on vent support now cxr noted on pressors prognosis guarded repeat covid ++ weaning vent and pressors off slowly showing improvement slowly recovering will need trach as unable to wean vent safely called and spoke with [facility]. consent obtained s/p trach pending peg worsening on levo max (9) Sepsis Assessment & Plan: worsening leukocytosis febrile on pressors discussed with ID. lines evaluated and clean. he is septic on pressors and needs central access in difficult venous access patient blood cultures negative will monitor temp HD cath out now with permacath left tlc still subclavian needed line c/d/i line negative c diff negative wbc resolved improved d/c planning febrile leukocytosis hold d/c infectious work up in place yeast in cultures fevers persistent fungemia abx as per ID Yaniv Mast Aug 12, 2019 08:58
--- NOTE | 2019-08-12 09:11 | Hematology/Onc Progress Note ---
Assessment/Plan Assessment/Plan Assessment and Recs: # Anemia of chronic disease, likely related ot underlying kidney disease has COIVD19++++++ --> hgb trend 9-->8-->7.3-->7.9-->6.8->9.5-->10->8.3-->7.7-->7.1-->8.9->8.8->7.7 -->8.1 ->7.9-->7.7 -->8.2-->8.1 -->7.9-->8.5 -->9->9.2-->9.5-->10.7 -->9.8--> 10.2-->11.8 -->11.9-->8.8 ->9.4->9-->8.3 -->8.5-->9.4->9.8-->9-->8.3-->11.6--> 10.8-->10.5 --> transfuse as needed, hgb goal >7 --> no evidence of hemolysis --> peripheral smear has been reviewed --> epogen started 3 x a week ==>> transfuse 06/08, 06/15 # Leukocytosis likely related to suspected COVID-19 virus infection --> completed plaquenil --> trend smear as needed --> wbc trend: 4-->11-->14.5-->21-->26-->21->24--.28-->23-->19-->16.2-->21--> 11.2 -->12.5-->12.3-->12.4-->18.5-->18.5-->17->13-->18.2-->22.2-->25-->17.4-->17 -->14.2-->14-->16-->15.5-->9->17->11.5-->12 --> pulm is aware --> on abx cefepime/vanc->zosyn/vanc-->dom/vanc-->dom-->levaquin/cefepime--> vanc/zosyn --> pressors as needed --> 06/27 covid 19++ --> pressors as needed in icu --> c diff negative 08/08 # Thrombocytopenia/Lymphopenia --> likely related to covid19 --> plt 129k-->186k-->251-->285-->384 -->430-->539-->515-->447-->451-->404-->544 -->244 -->393 # Respiratory failure with covid19+ --> s/p vent/trach --> weaning # Possible Pneumonia --> abx completed --> 07/13 cxr: Improved right lung infiltrates. # Cardiomegaly # Transaminitis with Elevated AST # COPD # Chronic Kidney Disease --> per renal hd --> s/p right femoral cath 07/02 # Hypertension # peg # Dvt ppx lovenox Appreciate consultation and ernesto Rn Subjective Allergies: Coded Allergies: No Known Allergies (Unverified , 05/28/19) All Systems: reviewed and negative except above Subjective 06/01 nv, extremely agitated, not allowing labs draws, no night sweats, cbc ordered 06/02 confused, restraints, on abx and plaquenil, hgb 7.9, nrb 15 L 06/03 is with nonrebreather, but not compliant, remains confused 06/05 no bleeding, labs noted, no major bleeding, otherwise comfortable 06/06 labs reviewed, no bleeding, meds noted, no night sweats, on levo and nonrebreather 06/07 labs noted, no bleeding, meds reviewed, no bleeding, wbc higher 06/08 to get 2 units prbc, no night sweats, meds reviewed 06/09 is on cefepime and vanc, labs noted, ernesto Rn, no bleeding 06/10 no major changes, labs reviewed, wbc 28k, on abx, cefepime 06/12 remains in icu, labs noted, no night sweats or bleeding 06/13 sluggish pupils, remains agitated, per psych, no bleding, on vent, wbc sitll high 06/14 still confused, remains on vent, with ng, running nepro, on pressors 06/15 icu, febrile, non verbal, hgb 7.1, blood pending, completed plaq 06/16 remains in the icu, nonverbal, plan for hd tomorrow, ernesto rn 06/17 in icu, on pressor, nonverbal, on abx, no bleeding 06/19 no bleeding, nonverbal in icu, hgb is 7.7 06/20 on zosyn, tube feeds, vent, labs noted, in icu, nv 06/21 gettng hd as per renal, in icu, nv, no bleeding, tfs 06/22 icu, cxr with slight improvement, cooling blanket, weaning today 06/23 wewaning, in icu, on vent, abx, and pressors as needed, labs noted 06/24 failed weaning, off abx, completed plaquenil, hgb 8.1 06/26 icu, weaning for this am, afebrile, hgb 8 06/27 in icu, remains comotose, weaning started on peep, no night sweats 06/28 weaning today, off abx, restraints, no distress, h/h stable 06/29 covid 19+, failed weaning, no blood transfusion needed 06/30 icu, on vent, labs reviewed, no distress 07/01 in icu, may need trach, remains on hd per renal, labs noted 07/02 s/p right fem cath, failed wean, no new orders, h/h stable 07/03 is somewhat more responsive, on abx, no bleeding, weaning and HD today 07/04 hd as per renal, weaning off vent, no bleeding today 07/05 obtunded, no bleding overnight, with hd for tomorrow noted, vanc 07/08 no events, remains with trach/vent, ernesto Rn, no bleeding, cbc is noted 07/09 no overnight events, peg for friday pending consent 07/10 off pressors, vent, restraints, labs reviewed 07/11 no acute events is on pressors, intubated, agitated still 07/12 is resting comfortably, no bleeding, emds reviewed and noted 07/13 icu, no events, trach, cxr reviewed, 07/14 is onv ent, tachypneic and tachycardic, labs noted 07/15 remains confused, intubated, dw Rn, no bleeding 07/17 icu, cxr improving infiltrates, levo gtt, airborne/contact isolation 07/18 is on broad spectrum abx, is on levaquin and cefepime, wbc 16 agitated 07/19 icu, levo gtt, cxr unchanged, tachy, hd thursday 07/20 sedated, safety restraints, labs reviewed 07/21 hd was done yesterday, lower pressor requirements, wbc is worse, on abx 07/22 icu, meds and labs reviewed, vent, no distress 07/24 on vent, in icu, labs noted, remains agitated, and confused 07/25 remains obtunded, on vent, on pressor, hgb 9, wbc elev 07/26 icu, levo gtt, vent, iv abx, nonverbal 07/27 failed weaning, labs reviewed, repeat covid swab pending 07/28 labs are noted, no bleeding, on vent/trach gtube feeds dw rn 07/29 iuc, restraints, no new changes, vent 07/31 is asleep, comfortable, no events, labs reviewed, restraints+ 08/01 no events, agitated, no bleeding, meds noted, on gtube feeds 08/02 remains on vent, no bleeding, wbc higher 19, hgb 9, on abx 08/03 labs noted, on vent, no bleeding, wbc 17, hgb better 08/04 labs reviewed, no bleeding, does not require prbc, on vent 08/05 more alert, is on trach, vent, no major events, no bleeding, peg+ 08/07 no bleeding no chills, no night sweats, is on vent/trach 08/08 recent covid swab negative, restraints, cxr unchanged 08/09 c diff negative, zosyn, hd today, gtf 08/10 no overnight events, labs reviewed, afebrile 08/11 labs reviewed, meds noted, no fc, no major changes, wbc 12 Objective Objective Current Medications Medications (Trade) Dose Ordered Sig/Anthony Route PRN Reason Start Time Stop Time Status Last Admin Dose Admin Acetaminophen (Tylenol) 650 mg Q4H PRN GT Temp >100.5 08/09/19 08:30 09/08/19 08:29 08/11/19 21:54 Acetaminophen (Tylenol) 650 mg Q4H PRN NG For Pain 08/04/19 21:38 09/03/19 21:37 08/08/19 17:08 Chlorhexidine Gluconate (Michelle-Hex 2%) 1 applic DAILY@2000 TOPIC 08/05/19 20:00 09/05/19 19:59 08/11/19 20:04 Dextrose (Dextrose 50%) 25 ml Q30M PRN IV Hypoglycemia 08/04/19 22:00 09/18/19 19:29 Dextrose (Dextrose 50%) 50 ml Q30M PRN IV Hypoglycemia 08/04/19 22:00 09/18/19 19:29 Enoxaparin Sodium (Lovenox) 30 mg DAILY SUBQ 08/05/19 09:00 08/27/19 08:59 08/12/19 08:33 Epoetin Aftab (Epoetin Aftab(ESRD on dialysis)) 10,000 unit FRI-FRI-FRI SUBQ 08/11/19 21:00 11/09/19 20:59 08/11/19 20:04 Haloperidol Lactate 5 mg/ Dextrose 56 ml @ 224 mls/hr Q6H PRN IVPB Agitation 08/04/19 21:38 09/18/19 21:37 Hydralazine HCl (Apresoline) 10 mg Q4H PRN IV Blood pressure over 160 systol 08/04/19 21:39 11/02/19 21:38 Insulin Aspart (NovoLOG) EVERY 6 HOURS SUBQ 08/05/19 00:00 09/19/19 00:00 08/11/19 23:25 Loperamide HCl (Imodium) 2 mg Q6H PRN NG Diarrhea 08/11/19 10:15 09/10/19 10:14 08/11/19 21:53 Metoclopramide HCl (Reglan) 5 mg Q8HR IVP 08/05/19 06:00 09/04/19 05:59 08/11/19 21:53 Micafungin Sodium 100 mg/Sodium Chloride 110 ml @ 110 mls/hr Q24H IVPB 08/11/19 18:00 08/18/19 17:59 08/11/19 18:00 Pantoprazole (Protonix) 40 mg DAILY IVP 08/05/19 09:00 08/26/19 08:59 08/12/19 08:32 Vancomycin HCl (Vanco pharmacy to dose) 1 ea DAILY PRN MISC Per rx protocol 08/05/19 09:00 08/19/19 10:44 Last 24 Hour Vital Signs Date Time Temp Pulse Resp B/P (MAP) Pulse Ox O2 Delivery O2 Flow Rate FiO2 08/12/19 08:00 30 08/12/19 08:00 96.8 118 26 102/70 (81) 100 08/12/19 07:21 121 29 30 08/12/19 04:00 137 08/12/19 04:00 101.8 137 29 127/84 (98) 100 08/12/19 04:00 Mechanical Ventilator Mechanical Ventilator 08/12/19 04:00 30 08/12/19 03:30 134 32 30 08/12/19 00:00 Mechanical Ventilator Mechanical Ventilator 08/12/19 00:00 99.5 105 28 128/64 (85) 100 08/11/19 23:34 129 08/11/19 23:30 122 32 30 08/11/19 20:00 Mechanical Ventilator 08/11/19 20:00 30 08/11/19 20:00 Mechanical Ventilator Mechanical Ventilator 08/11/19 20:00 131 08/11/19 20:00 99.9 120 27 121/70 (87) 100 08/11/19 19:30 121 27 30 08/11/19 16:00 Mechanical Ventilator 08/11/19 16:00 100.4 131 22 122/72 (89) 100 08/11/19 16:00 30 08/11/19 16:00 139 08/11/19 15:53 100.4 08/11/19 15:30 100.9 135 08/11/19 14:55 130 30 30 08/11/19 12:26 133 28 30 08/11/19 12:00 99.5 130 22 102/61 (75) 100 08/11/19 12:00 131 08/11/19 12:00 30 08/11/19 12:00 Mechanical Ventilator 08/11/19 10:06 100 08/11/19 08:00 125 08/11/19 08:00 30 08/11/19 08:00 Mechanical Ventilator 08/11/19 07:48 125 27 30 08/11/19 07:47 98.6 112 22 113/72 (86) 100 08/11/19 04:00 131 08/11/19 04:00 30 08/11/19 04:00 Mechanical Ventilator 08/11/19 04:00 101.7 131 22 109/68 (82) 100 08/11/19 02:47 126 26 30 08/11/19 00:00 98.2 130 22 117/72 (87) 100 08/11/19 00:00 30 08/11/19 00:00 131 08/11/19 00:00 Mechanical Ventilator 08/10/19 22:53 127 26 30 08/10/19 20:00 98.2 122 22 112/71 (85) 100 08/10/19 20:00 30 08/10/19 20:00 Mechanical Ventilator 08/10/19 20:00 123 08/10/19 19:40 124 26 30 08/10/19 16:00 Mechanical Ventilator 08/10/19 16:00 98.8 125 23 165/95 (118) 100 08/10/19 16:00 30 08/10/19 15:30 135 30 30 08/10/19 15:26 137 08/10/19 12:00 Mechanical Ventilator 08/10/19 12:00 30 08/10/19 11:33 152 08/10/19 11:04 102.2 149 26 150/103 (119) 100 08/10/19 10:41 141 34 30 Intake and Output 08/11/19 08/12/19 19:00 07:00 Intake Total 1415.000 ml 500 ml Output Total 600 ml 500 ml Balance 815.000 ml 0 ml Free Water 50 ml 60 ml IV Total 385.000 ml Tube Feeding 930 ml 440 ml Other 50 ml Stool Total 600 ml 500 ml Labs Test 08/09/19 13:03 08/09/19 17:32 08/09/19 23:26 08/10/19 05:36 POC Whole Blood Glucose 243 MG/DL (74-106) 211 MG/DL (74-106) 233 MG/DL (74-106) Test 08/11/19 01:00 08/11/19 03:00 08/11/19 06:45 08/11/19 11:58 POC Whole Blood Glucose 261 MG/DL (74-106) 272 MG/DL (74-106) 267 MG/DL (74-106) White Blood Count 11.5 K/UL (4.8-10.8) Red Blood Count 3.84 M/UL (4.70-6.10) Hemoglobin 10.8 G/DL (14.2-18.0) Hematocrit 36.8 % (42.0-52.0) Mean Corpuscular Volume 96 FL (80-99) Mean Corpuscular Hemoglobin 28.1 PG (27.0-31.0) Mean Corpuscular Hemoglobin Concent 29.3 G/DL (32.0-36.0) Red Cell Distribution Width 17.7 % (11.6-14.8) Platelet Count 393 K/UL (150-450) Mean Platelet Volume 7.5 FL (6.5-10.1) Neutrophils (%) (Auto) 73.0 % (45.0-75.0) Lymphocytes (%) (Auto) 16.6 % (20.0-45.0) Monocytes (%) (Auto) 8.8 % (1.0-10.0) Eosinophils (%) (Auto) 0.6 % (0.0-3.0) Basophils (%) (Auto) 0.9 % (0.0-2.0) Sodium Level 148 MMOL/L (136-145) Potassium Level 3.1 MMOL/L (3.5-5.1) Chloride Level 106 MMOL/L (98-107) Carbon Dioxide Level 24 MMOL/L (21-32) Anion Gap 18 mmol/L (5-15) Blood Urea Nitrogen 61 mg/dL (7-18) Creatinine 7.7 MG/DL (0.55-1.30) Estimat Glomerular Filtration Rate 7.1 mL/min (>60) Glucose Level 233 MG/DL (74-106) Calcium Level 9.4 MG/DL (8.5-10.1) Phosphorus Level 3.2 MG/DL (2.5-4.9) Magnesium Level 2.4 MG/DL (1.8-2.4) Total Bilirubin 0.1 MG/DL (0.2-1.0) Aspartate Amino Transf (AST/SGOT) 28 U/L (15-37) Alanine Aminotransferase (ALT/SGPT) 16 U/L (12-78) Alkaline Phosphatase 114 U/L (46-116) Total Protein 9.3 G/DL (6.4-8.2) Albumin 2.8 G/DL (3.4-5.0) Globulin 6.5 g/dL Albumin/Globulin Ratio 0.4 (1.0-2.7) Random Vancomycin Level 17.4 ug/mL Test 08/12/19 03:15 White Blood Count 12.3 K/UL (4.8-10.8) Red Blood Count 3.74 M/UL (4.70-6.10) Hemoglobin 10.5 G/DL (14.2-18.0) Hematocrit 35.7 % (42.0-52.0) Mean Corpuscular Volume 95 FL (80-99) Mean Corpuscular Hemoglobin 28.0 PG (27.0-31.0) Mean Corpuscular Hemoglobin Concent 29.4 G/DL (32.0-36.0) Red Cell Distribution Width 17.5 % (11.6-14.8) Platelet Count 404 K/UL (150-450) Mean Platelet Volume 7.1 FL (6.5-10.1) Neutrophils (%) (Auto) 74.0 % (45.0-75.0) Lymphocytes (%) (Auto) 17.1 % (20.0-45.0) Monocytes (%) (Auto) 6.6 % (1.0-10.0) Eosinophils (%) (Auto) 1.3 % (0.0-3.0) Basophils (%) (Auto) 1.0 % (0.0-2.0) Sodium Level 152 MMOL/L (136-145) Potassium Level 3.2 MMOL/L (3.5-5.1) Chloride Level 109 MMOL/L (98-107) Carbon Dioxide Level 22 MMOL/L (21-32) Anion Gap 21 mmol/L (5-15) Blood Urea Nitrogen 77 mg/dL (7-18) Creatinine 8.9 MG/DL (0.55-1.30) Estimat Glomerular Filtration Rate 6.0 mL/min (>60) Glucose Level 238 MG/DL (74-106) Calcium Level 9.6 MG/DL (8.5-10.1) Total Bilirubin 0.4 MG/DL (0.2-1.0) Aspartate Amino Transf (AST/SGOT) 22 U/L (15-37) Alanine Aminotransferase (ALT/SGPT) 17 U/L (12-78) Alkaline Phosphatase 136 U/L (46-116) Total Protein 9.6 G/DL (6.4-8.2) Albumin 3.0 G/DL (3.4-5.0) Globulin 6.6 g/dL Albumin/Globulin Ratio 0.5 (1.0-2.7) Height (Feet): 6 Height (Inches): 1.00 Weight (Pounds): 170 Objective General: nv, confused, sedated Heent: bilateral eye normal inspection, bilateral eye PERRL ++Ng Respiratory: normal breath sounds, no respiratory distress, intubated/vent +++ trach+++ Cardiovascular: regular rate, rhythm, no edema Gastrointestinal: normal inspection, soft, non-distended, peg+ Rectal: deferred Musculoskeletal: normal range of motion, non-tender, R fem cath++ Neurologic: alert, motor strength/tone normal, sensory intact, responsive, speech normal Skin: Decubitus/Ulcer - See RN skin exam. : jamaal+ Greg Cabral MD Aug 12, 2019 09:11
--- NOTE | 2019-08-12 10:53 | General Progress Note ---
Assessment/Plan Status: progressing, unchanged, deteriorating Assessment/Plan: 1. Diabetes. 2. Hypertension. 3. Coronary artery disease. 4. COPD. 5. Psychiatric disorder with schizophrenia. 6. History of hepatitis C. 7. HLP. 8. Chronic kidney disease, now with acute renal failure. 9. Anemia. 10. Hypothyroidism. 11. Spinal stenosis. 12. Constipation. 13. GERD. 14. COVID positive HD per nephrology fu labs icu care s/p PEG GTF decrease TF to 40 cc add prn imodium monitor for residuals Subjective ROS Limited/Unobtainable: No Allergies: Coded Allergies: No Known Allergies (Unverified , 05/28/19) Objective Last 24 Hour Vital Signs Date Time Temp Pulse Resp B/P (MAP) Pulse Ox O2 Delivery O2 Flow Rate FiO2 08/12/19 09:18 110 26 30 08/12/19 08:00 30 08/12/19 08:00 96.8 118 26 102/70 (81) 100 08/12/19 08:00 118 08/12/19 07:21 121 29 30 08/12/19 04:00 137 08/12/19 04:00 101.8 137 29 127/84 (98) 100 08/12/19 04:00 Mechanical Ventilator Mechanical Ventilator 08/12/19 04:00 30 08/12/19 03:30 134 32 30 08/12/19 00:00 Mechanical Ventilator Mechanical Ventilator 08/12/19 00:00 99.5 105 28 128/64 (85) 100 08/11/19 23:34 129 08/11/19 23:30 122 32 30 08/11/19 20:00 Mechanical Ventilator 08/11/19 20:00 30 08/11/19 20:00 Mechanical Ventilator Mechanical Ventilator 08/11/19 20:00 131 08/11/19 20:00 99.9 120 27 121/70 (87) 100 08/11/19 19:30 121 27 30 08/11/19 16:00 Mechanical Ventilator 08/11/19 16:00 100.4 131 22 122/72 (89) 100 08/11/19 16:00 30 08/11/19 16:00 139 08/11/19 15:53 100.4 08/11/19 15:30 100.9 135 08/11/19 14:55 130 30 30 08/11/19 12:26 133 28 30 7/1/20 12:00 99.5 130 22 102/61 (75) 100 08/11/19 12:00 131 08/11/19 12:00 30 08/11/19 12:00 Mechanical Ventilator Intake and Output 08/11/19 08/12/19 19:00 07:00 Intake Total 1415.000 ml 500 ml Output Total 600 ml 500 ml Balance 815.000 ml 0 ml Free Water 50 ml 60 ml IV Total 385.000 ml Tube Feeding 930 ml 440 ml Other 50 ml Stool Total 600 ml 500 ml Laboratory Tests 08/11/19 11:58: POC Whole Blood Glucose 267H 08/12/19 03:15: White Blood Count 12.3H, Red Blood Count 3.74L, Hemoglobin 10.5L, Hematocrit 35.7L, Mean Corpuscular Volume 95, Mean Corpuscular Hemoglobin 28.0, Mean Corpuscular Hemoglobin Concent 29.4L, Red Cell Distribution Width 17.5H, Platelet Count 404, Mean Platelet Volume 7.1, Neutrophils (%) (Auto) 74.0, Lymphocytes (%) (Auto) 17.1L, Monocytes (%) (Auto) 6.6, Eosinophils (%) (Auto) 1.3, Basophils (%) (Auto) 1.0, Sodium Level 152H, Potassium Level 3.2L, Chloride Level 109H, Carbon Dioxide Level 22, Anion Gap 21H, Blood Urea Nitrogen 77H, Creatinine 8.9H, Estimat Glomerular Filtration Rate 6.0, Glucose Level 238H, Calcium Level 9.6, Total Bilirubin 0.4, Aspartate Amino Transf (AST/ SGOT) 22, Alanine Aminotransferase (ALT/SGPT) 17, Alkaline Phosphatase 136H, Total Protein 9.6H, Albumin 3.0L, Globulin 6.6, Albumin/Globulin Ratio 0.5L Height (Feet): 6 Height (Inches): 1.00 Weight (Pounds): 170 General Appearance: no apparent distress EENT: normal ENT inspection Neck: supple Cardiovascular: normal rate Respiratory/Chest: decreased breath sounds Abdomen: hypoactive bowel sounds Extremities: non-tender Marito Ramires MD Aug 12, 2019 10:53
[2019-08-12 12:00] VITALS: BP 101/70
--- NOTE | 2019-08-12 12:53 | Nephrology Progress Note ---
Assessment/Plan Problem List: (1) CASSANDRA (acute kidney injury) (2) Anemia in chronic kidney disease (CKD) (3) HTN (hypertension) (4) COVID-19 Assessment Acute renal failure most likely superimposed on chronic kidney disease Suspected COVID-19 virus infection Possible Pneumonia, lymphopenia, elevated AST Cardiomegaly, possible CHF COPD Hypertension Anemia, most likely related to chronic kidney disease Plan August 11: Patient labs reviewed. Will order dialysis tomorrow. Continue per consultants. August 10: Patient was dialyzed yesterday. Today's labs checked. Stable from renal standpoint to view August 09: Patient scheduled for hemodialysis today. Will check labs tomorrow. August 08: Lab reviewed. Hemodialysis scheduled for tomorrow. August 07: Dialyzed yesterday. No labs drawn today. Will check labs tomorrow. Continue per consultants. August 06: Patient on dialysis now. Discussed with dialysis nurse. Slight catheter malfunction persist. August 05: Labs reviewed. Dialysis scheduled for tomorrow. Continue per consultants. August 04: No labs done today. Dialyzed yesterday. Check labs tomorrow. Continue per consultants. August 03: Lab reviewed. Due for dialysis today. White blood cell 17,500. August 02: Lab reviewed. Low phosphorus replaced. Hemodialysis ordered for tomorrow. White blood cells over 18,000. August 01: Labs reviewed. Potassium replacement ordered. Remains full code on ventilator via trach. Continue per consultants. July 31: Dialyzed yesterday. No can panel today. Remains full code. Remains on ventilator. Being fed through PEG. Continue per consultants. July 30: Patient due for dialysis today. Labs are reviewed. Remains full code. Status post trach to ventilator. Status post PEG. July 29: Patient dialyzed yesterday. Due for dialysis tomorrow. Remains in ICU. Full code. Status post trach tube to ventilator. Status post PEG. July 28: Due for dialysis today. Labs reviewed. Full code. Patient trached and vented. July 27: Last COVID test negative. COVID test will be repeated tomorrow. Will order dialysis tomorrow. Remains full code. Medication list and labs reviewed. July 26: No labs done today. Dialysis done yesterday. Will check lab tomorrow. Dialysis as needed. July 25: Lab reviewed. Dialysis today. Discussed with RN. July 24: Lab reviewed. Do dialysis tomorrow. Discussed with RN. July 23: Lab reviewed. Dialyzed yesterday. Discussed with RN. Remains full code. Next dialysis July 25. Will check labs tomorrow. July 22: Labs reviewed. Due for dialysis today. Discussed with RN. Watch borderline low blood pressure. Discussed with dialysis nurse. July 21: Today's lab reviewed. Will arrange for dialysis tomorrow. Discussed with RN. Aim to keep the blood pressure above 100 systolic. Continue per consultants. July 20: Patient was dialyzed yesterday. Could not ultrafiltrate much due to low blood pressure. Discussed with SHANIQUE Dick today. No labs drawn today. Continue per consultants. July 19: Due for dialysis today. Discussed with SHANIQUE Dick. Continue per consultants. July 18: Dialyzed July 16. Will order dialysis tomorrow July 19. Continues to be on ventilator through trach. No labs done today. Continue per consultants. July 17: Dialyzed yesterday. Stable from renal standpoint of view. Remains full code. Status post trach on vent. Status post PEG. Continue per consultants. July 16: Dialysis today. Will resume Midodrin to prevent hypotension. Patient remains full code. July 15: Dialyzed yesterday, due for dialysis tomorrow. Labs and medication list reviewed. Continue per consultants. Patient remains full code. COVID-19 detected again. July 14: Patient currently on dialysis. This is continuation of dialysis from yesterday as yesterday's dialysis was cut short due to catheter malfunction. Labs and medication reviewed. Continue per consultants. July 13: Patient currently on hemodialysis. The dialysis catheter which is a intrajugular Kamlesh has poor flow. Will try TPA. Continue per consultants. July 12: Due for PEG today. Due for dialysis tomorrow. Continue per consultants. Discussed with RN. July 11: Plan for dialysis today. Discussed with RN. Data reviewed. July 10: Plan for dialysis tomorrow July 11. Waiting for consent to proceed with PEG. Continue per consultants. Medication reviewed. Labs reviewed. Discussed with RN. July 09: Dialyzed yesterday. Labs reviewed. Medication reviewed. Next hemodialysis July 11. July 08: Patient has tracheostomy now. Connected to ventilator. Due for dialysis today. Continue per consultants. Discussed with SHANIQUE Romero. July 07: Patient is due for tracheostomy today. Patient was last dialyzed July 05. Will order dialysis for tomorrow. July 06: Patient is intubated on ventilator however the plan is to extubate today. Patient was dialysis yesterday July 05. The dialysis time was cut short due to patient's respiratory distress. Only 1 L was removed during dialysis yesterday. Today's lab reviewed. Continue per consultants. Will arrange for dialysis as needed. July 05: Patient due for dialysis today. Remains intubated. Will schedule permacath placement in a.m. blood cultures on July 04 are negative. July 04: Patient was dialyzed yesterday. Due for dialysis tomorrow. Continues to be intubated. After tomorrow's dialysis will order a permacath. July 03: Dialysis is about to be started now Continues to be intubated Will plan to remove the femoral dialysis catheter and exchanged for a new temporary catheter per ID recommendation We will check surveillance blood culture tomorrow July 02: Patient was dialyzed yesterday and due for dialysis tomorrow Stable from renal standpoint W on dialysis Continue per consultants, weaning....... etc. July 01: Dialysis today Other status unchanged June 30: Due for dialysis tomorrow Remains intubated on ventilator Labs and medication reviewed Discussed with SHANIQUE Stable from renal standpoint of view June 29: Dialyzed yesterday Due for dialysis tomorrow Stable from renal standpoint to view Keeps failing weaning process June 28: Patient due for dialysis today Stable from renal standpoint to view Continue per consultants June 27: Labs reviewed Due due for dialysis June 28 Discussed with SHANIQUE Dick Continue per consultants Remains intubated on ventilator June 26 Labs reviewed Dialyzed yesterday Started on weaning today Continue to monitor renal parameters June 25: On dialysis now Potassium supplement implemented Continue per consultants Next dialysis June 27June 15: Status unchanged Dialyzed yesterday will dialyze again tomorrow Potassium supplements given Discussed with RN June 23: Due dialysis today Status: Remains intubated on ventilator June 22: Status unchanged Dialyzed yesterday and duefordialysistomorrow Serum sodium stable today June 21 Remains intubated on ventilator Due dialysis today Emphasized high sodium bath for dialysis June 20: Remains intubated on ventilator Dialyzed June 19 next dialysis June 21 Serum sodium 128, will give 250 cc 3% saline Remains full code Discussed with RN Iron panel ordered June 19: Discussed with RN. Patient due for dialysis today. Continue pulmonary support. Remains full code. June 18: Patient dialyzed yesterday June 17 Serum sodium improved but still low Arrange for dialysis tomorrow June 19 Continue per consultants June 17: Due for dialysis today Today's lab reviewed, low serum sodium noted, Emphasized on high sodium bath to dialysis nurse Discussed with SHANIQUE Yuen June 7: Dialyzed yesterday Remains intubated Labs reviewed, serum sodium 131 Plan to dialyze tomorrow June 17 with high sodium bath Discussed with SHANIQUE Alpa June 6: Due for dialysis today Labs reviewed Discussed with RN Transfuse 1 unit of packed RBCs today for low hemoglobin of 7.1 June 5: Blood pressure well maintained Receive dialysis June 13 next hemodialysis June 15June 4: Discussed with RN in ICU Patient did not receive proper dialysis yesterday due to dialysis catheter malfunction Catheter to be adjusted today and dialyzed to be resumed today Continue per consultants Positive for COVID 28 June 2: Patient now intubated on mechanical ventilation Discussed with SHANIQUE Yuen, today June 12 Patient received dialysis yesterday June 10 next hemodialysis June 12 Blood pressure better maintained Today's labs reviewed Continue per consultants Previously patient received dialysis last evening June 05, next dialysis June 07 which was incomplete due to patient's hypotension Will start on midodrine for blood pressure support. Meanwhile continue other pressors as needed Previously Patient is doing poorly, septic, white blood cells are rising, Hypotension somewhat improved We will keep n.p.o. , NG tube for medications, and change medication to IV as needed Patient remains full code Monitor vancomycin level Previously: Patient pulled out his femoral catheter yesterday June 03 which was reinserted by Dr. Mast Patient scheduled for dialysis again June 04, which again was not done due to dialysis nurse citing catheter malfunction Meanwhile continue management per ID, pulmonary , and psych. Meanwhile white blood cell count is rising. Patient blood pressure borderline low. Will check ABG Previously May 31 : I believe patient need dialysis treatment He however needs to competency assessment if can make decisions or not I will communicate with Dr. Mulligan Previously: Per pulmonary and ID advice Adjust blood pressure medication Renal diet Anemia work-up 2D echocardiogram refused Kidney ultrasound refused Jules catheter Urine studies Per orders Subjective ROS Limited/Unobtainable: Yes Objective Objective Last 24 Hour Vital Signs Date Time Temp Pulse Resp B/P (MAP) Pulse Ox O2 Delivery O2 Flow Rate FiO2 08/12/19 10:58 114 26 30 08/12/19 10:58 100 08/12/19 09:18 110 26 30 08/12/19 08:00 30 08/12/19 08:00 96.8 118 26 102/70 (81) 100 08/12/19 08:00 118 08/12/19 08:00 Mechanical Ventilator Mechanical Ventilator 08/12/19 07:21 121 29 30 08/12/19 04:00 137 08/12/19 04:00 101.8 137 29 127/84 (98) 100 08/12/19 04:00 Mechanical Ventilator Mechanical Ventilator 08/12/19 04:00 30 08/12/19 03:30 134 32 30 08/12/19 00:00 Mechanical Ventilator Mechanical Ventilator 08/12/19 00:00 99.5 105 28 128/64 (85) 100 08/11/19 23:34 129 08/11/19 23:30 122 32 30 08/11/19 20:00 Mechanical Ventilator 08/11/19 20:00 30 08/11/19 20:00 Mechanical Ventilator Mechanical Ventilator 08/11/19 20:00 131 08/11/19 20:00 99.9 120 27 121/70 (87) 100 08/11/19 19:30 121 27 30 08/11/19 16:00 Mechanical Ventilator 08/11/19 16:00 100.4 131 22 122/72 (89) 100 08/11/19 16:00 30 08/11/19 16:00 139 08/11/19 15:53 100.4 08/11/19 15:30 100.9 135 08/11/19 14:55 130 30 30 Intake and Output 08/11/19 08/12/19 19:00 07:00 Intake Total 1415.000 ml 500 ml Output Total 600 ml 500 ml Balance 815.000 ml 0 ml Free Water 50 ml 60 ml IV Total 385.000 ml Tube Feeding 930 ml 440 ml Other 50 ml Stool Total 600 ml 500 ml Laboratory Tests 08/11/19 17:56: POC Whole Blood Glucose 289H 08/11/19 23:24: POC Whole Blood Glucose 260H 08/12/19 03:15: White Blood Count 12.3H, Red Blood Count 3.74L, Hemoglobin 10.5L, Hematocrit 35.7L, Mean Corpuscular Volume 95, Mean Corpuscular Hemoglobin 28.0, Mean Corpuscular Hemoglobin Concent 29.4L, Red Cell Distribution Width 17.5H, Platelet Count 404, Mean Platelet Volume 7.1, Neutrophils (%) (Auto) 74.0, Lymphocytes (%) (Auto) 17.1L, Monocytes (%) (Auto) 6.6, Eosinophils (%) (Auto) 1.3, Basophils (%) (Auto) 1.0, Sodium Level 152H, Potassium Level 3.2L, Chloride Level 109H, Carbon Dioxide Level 22, Anion Gap 21H, Blood Urea Nitrogen 77H, Creatinine 8.9H, Estimat Glomerular Filtration Rate 6.0, Glucose Level 238H, Calcium Level 9.6, Total Bilirubin 0.4, Aspartate Amino Transf (AST/ SGOT) 22, Alanine Aminotransferase (ALT/SGPT) 17, Alkaline Phosphatase 136H, Total Protein 9.6H, Albumin 3.0L, Globulin 6.6, Albumin/Globulin Ratio 0.5L 08/12/19 05:16: POC Whole Blood Glucose [Pending] 08/12/19 12:33: POC Whole Blood Glucose [Pending] Height (Feet): 6 Height (Inches): 1.00 Weight (Pounds): 170 General Appearance: no apparent distress EENT: other - Trach and vent Cardiovascular: tachycardia Respiratory/Chest: decreased breath sounds Abdomen: soft Objective No change Mic Cole MD Aug 12, 2019 12:53
--- NOTE | 2019-08-12 13:51 | Infectious Diseases Prog Note ---
Assessment/Plan Assessment/Plan IMPRESSION: 1. COVID19 pneumonia Positive: 05/27, 05/31 , 06/05, 06/09 ,5, 5, 06/23, 06/27, 07/03, 07/15, 07/29 Negative: 07/26, 08/04, 08/05 2. MRSA carrier. 3. Chronic kidney disease , end-stage renal disease. 4. COPD. 5. Hypertension. 6. Anemia. 7. Hypothyroidism. 8. Hyperlipidemia. 9. Major depression. 10. Leukocytosis 11. Hypotension 12. Hepatitis C 13. Hyperuricemia 14. Diarrhea, C difficile negative 15. septic shock 16.Sepsis Catheter tip yeast blood culture: Gram positive cocci 17. Pneumonia with Staph aureus ( MRSA) 18. Candidal sepsis RECOMMENDATIONS: Discontinue IV Vancomycin continue Micafungin Will f/u cultures Blood culture at time of next HD Subjective ROS Limited/Unobtainable: Yes Constitutional: Reports: fever, other - last night Neurologic: Reports: other - more alert, off restraint Allergies: Coded Allergies: No Known Allergies (Unverified , 05/28/19) Objective Last 24 Hour Vital Signs Date Time Temp Pulse Resp B/P (MAP) Pulse Ox O2 Delivery O2 Flow Rate FiO2 08/12/19 12:00 120 08/12/19 12:00 Mechanical Ventilator Mechanical Ventilator 08/12/19 12:00 30 08/12/19 12:00 98.6 116 26 101/70 (80) 100 08/12/19 10:58 114 26 30 08/12/19 10:58 100 08/12/19 09:18 110 26 30 08/12/19 08:00 30 08/12/19 08:00 96.8 118 26 102/70 (81) 100 08/12/19 08:00 118 08/12/19 08:00 Mechanical Ventilator Mechanical Ventilator 08/12/19 07:21 121 29 30 08/12/19 04:00 137 08/12/19 04:00 101.8 137 29 127/84 (98) 100 08/12/19 04:00 Mechanical Ventilator Mechanical Ventilator 08/12/19 04:00 30 08/12/19 03:30 134 32 30 08/12/19 00:00 Mechanical Ventilator Mechanical Ventilator 08/12/19 00:00 99.5 105 28 128/64 (85) 100 08/11/19 23:34 129 08/11/19 23:30 122 32 30 08/11/19 20:00 Mechanical Ventilator 08/11/19 20:00 30 08/11/19 20:00 Mechanical Ventilator Mechanical Ventilator 08/11/19 20:00 131 08/11/19 20:00 99.9 120 27 121/70 (87) 100 08/11/19 19:30 121 27 30 08/11/19 16:00 Mechanical Ventilator 08/11/19 16:00 100.4 131 22 122/72 (89) 100 08/11/19 16:00 30 08/11/19 16:00 139 08/11/19 15:53 100.4 08/11/19 15:30 100.9 135 08/11/19 14:55 130 30 30 Height (Feet): 6 Height (Inches): 1.00 Weight (Pounds): 170 HEENT: status post trach Respiratory/Chest: lungs clear, other - on ventilator Cardiovascular: tachycardia, other - Permacath Abdomen: soft, non tender, other - GT feeding Extremities: no edema Neurologic/Psychiatric: alert, responsive Microbiology Date/Time Source Procedure Growth Status 08/09/19 14:30 Blood Blood Culture - Preliminary YEAST Resulted 08/09/19 14:00 Blood Blood Culture - Preliminary Staphylococcus Sp Coag Neg Resulted 08/09/19 14:00 Stool Clostridium difficile Toxin Assay - Final Complete 08/09/19 14:00 Catheter Site Catheter Tip Culture - Final Bria Albicans Complete Laboratory Tests Test 08/11/19 17:56 08/11/19 23:24 08/12/19 03:15 08/12/19 05:16 POC Whole Blood Glucose 289 MG/DL (74-106) H 260 MG/DL (74-106) H Pending White Blood Count 12.3 K/UL (4.8-10.8) H Red Blood Count 3.74 M/UL (4.70-6.10) L Hemoglobin 10.5 G/DL (14.2-18.0) L Hematocrit 35.7 % (42.0-52.0) L Mean Corpuscular Volume 95 FL (80-99) Mean Corpuscular Hemoglobin 28.0 PG (27.0-31.0) Mean Corpuscular Hemoglobin Concent 29.4 G/DL (32.0-36.0) L Red Cell Distribution Width 17.5 % (11.6-14.8) H Platelet Count 404 K/UL (150-450) Mean Platelet Volume 7.1 FL (6.5-10.1) Neutrophils (%) (Auto) 74.0 % (45.0-75.0) Lymphocytes (%) (Auto) 17.1 % (20.0-45.0) L Monocytes (%) (Auto) 6.6 % (1.0-10.0) Eosinophils (%) (Auto) 1.3 % (0.0-3.0) Basophils (%) (Auto) 1.0 % (0.0-2.0) Sodium Level 152 MMOL/L (136-145) H Potassium Level 3.2 MMOL/L (3.5-5.1) L Chloride Level 109 MMOL/L (98-107) H Carbon Dioxide Level 22 MMOL/L (21-32) Anion Gap 21 mmol/L (5-15) H Blood Urea Nitrogen 77 mg/dL (7-18) H Creatinine 8.9 MG/DL (0.55-1.30) H Estimat Glomerular Filtration Rate 6.0 mL/min (>60) Glucose Level 238 MG/DL (74-106) H Calcium Level 9.6 MG/DL (8.5-10.1) Total Bilirubin 0.4 MG/DL (0.2-1.0) Aspartate Amino Transf (AST/SGOT) 22 U/L (15-37) Alanine Aminotransferase (ALT/SGPT) 17 U/L (12-78) Alkaline Phosphatase 136 U/L (46-116) H Total Protein 9.6 G/DL (6.4-8.2) H Albumin 3.0 G/DL (3.4-5.0) L Globulin 6.6 g/dL Albumin/Globulin Ratio 0.5 (1.0-2.7) L Test 08/12/19 12:33 POC Whole Blood Glucose Pending Current Medications Medications (Trade) Dose Ordered Sig/Anthony Route PRN Reason Start Time Stop Time Status Last Admin Dose Admin Acetaminophen (Tylenol) 650 mg Q4H PRN GT Temp >100.5 08/09/19 08:30 09/08/19 08:29 08/11/19 21:54 Acetaminophen (Tylenol) 650 mg Q4H PRN NG For Pain 08/04/19 21:38 09/03/19 21:37 08/08/19 17:08 Chlorhexidine Gluconate (Michelle-Hex 2%) 1 applic DAILY@2000 TOPIC 08/05/19 20:00 09/05/19 19:59 08/11/19 20:04 Dextrose (Dextrose 50%) 25 ml Q30M PRN IV Hypoglycemia 08/04/19 22:00 09/18/19 19:29 Dextrose (Dextrose 50%) 50 ml Q30M PRN IV Hypoglycemia 08/04/19 22:00 09/18/19 19:29 Enoxaparin Sodium (Lovenox) 30 mg DAILY SUBQ 08/05/19 09:00 08/27/19 08:59 08/12/19 08:33 Epoetin Aftab (Epoetin Aftab(ESRD on dialysis)) 10,000 unit FRI-FRI-FRI SUBQ 08/11/19 21:00 11/09/19 20:59 08/11/19 20:04 Haloperidol Lactate 5 mg/ Dextrose 56 ml @ 224 mls/hr Q6H PRN IVPB Agitation 08/04/19 21:38 09/18/19 21:37 Hydralazine HCl (Apresoline) 10 mg Q4H PRN IV Blood pressure over 160 systol 08/04/19 21:39 11/02/19 21:38 Insulin Aspart (NovoLOG) EVERY 6 HOURS SUBQ 08/05/19 00:00 09/19/19 00:00 08/12/19 12:33 Loperamide HCl (Imodium) 2 mg Q6H PRN NG Diarrhea 08/11/19 10:15 09/10/19 10:14 08/11/19 21:53 Metoclopramide HCl (Reglan) 5 mg Q8HR IVP 08/05/19 06:00 09/04/19 05:59 08/11/19 21:53 Micafungin Sodium 100 mg/Sodium Chloride 110 ml @ 110 mls/hr Q24H IVPB 08/11/19 18:00 08/18/19 17:59 08/11/19 18:00 Pantoprazole (Protonix) 40 mg DAILY IVP 08/05/19 09:00 08/26/19 08:59 08/12/19 08:32 Potassium Chloride 100 ml @ 50 mls/hr ONCE IVPB 08/12/19 11:45 08/12/19 14:00 08/12/19 12:34 Vancomycin HCl (Vanco pharmacy to dose) 1 ea DAILY PRN MISC Per rx protocol 08/05/19 09:00 08/19/19 10:44 Ted Leyva MD Aug 12, 2019 13:51
--- NOTE | 2019-08-12 14:30 | Cardiac Electrophysiology PN ---
Assessment/Plan Assessment/Plan 1. NSTEMI type 2. Low level and flat due to renal failure. On Aspirin. EF 60%. 2. S/P Septic shock. On Abx. 3. ESRD, on HD per Dr. Cole. S/P PermCath placement by IR 4. Resp failure due to COVID-19 positive pneumonia. On the Vent with 30% Fio2. S/P Tracheostomy 07/08/19. 5. Dysphagia, S/P PEG 07/13/19 6. COPD. 7. Anemia. 8. Sinus tach. Due to underlying respiratory failure DW RN Subjective Subjective In SDU on the vent via trach. Off pressors. Fio2 30% Covid positive x 10. Now has 2 negative Covid. Still sinus tach but better than yesterday. No atrial fib Objective Last 24 Hour Vital Signs Date Time Temp Pulse Resp B/P (MAP) Pulse Ox O2 Delivery O2 Flow Rate FiO2 08/12/19 12:00 120 08/12/19 12:00 Mechanical Ventilator Mechanical Ventilator 08/12/19 12:00 30 08/12/19 12:00 98.6 116 26 101/70 (80) 100 08/12/19 10:58 114 26 30 08/12/19 10:58 100 08/12/19 09:18 110 26 30 08/12/19 08:00 30 08/12/19 08:00 96.8 118 26 102/70 (81) 100 08/12/19 08:00 118 08/12/19 08:00 Mechanical Ventilator Mechanical Ventilator 08/12/19 07:21 121 29 30 08/12/19 04:00 137 08/12/19 04:00 101.8 137 29 127/84 (98) 100 08/12/19 04:00 Mechanical Ventilator Mechanical Ventilator 08/12/19 04:00 30 08/12/19 03:30 134 32 30 08/12/19 00:00 Mechanical Ventilator Mechanical Ventilator 08/12/19 00:00 99.5 105 28 128/64 (85) 100 08/11/19 23:34 129 08/11/19 23:30 122 32 30 08/11/19 20:00 Mechanical Ventilator 08/11/19 20:00 30 08/11/19 20:00 Mechanical Ventilator Mechanical Ventilator 08/11/19 20:00 131 08/11/19 20:00 99.9 120 27 121/70 (87) 100 08/11/19 19:30 121 27 30 08/11/19 16:00 Mechanical Ventilator 08/11/19 16:00 100.4 131 22 122/72 (89) 100 08/11/19 16:00 30 08/11/19 16:00 139 08/11/19 15:53 100.4 08/11/19 15:30 100.9 135 08/11/19 14:55 130 30 30 Intake and Output 08/11/19 08/12/19 19:00 07:00 Intake Total 1415.000 ml 500 ml Output Total 600 ml 500 ml Balance 815.000 ml 0 ml Free Water 50 ml 60 ml IV Total 385.000 ml Tube Feeding 930 ml 440 ml Other 50 ml Stool Total 600 ml 500 ml Laboratory Tests Test 08/11/19 17:56 08/11/19 23:24 08/12/19 03:15 08/12/19 05:16 POC Whole Blood Glucose 289 MG/DL (74-106) H 260 MG/DL (74-106) H Pending White Blood Count 12.3 K/UL (4.8-10.8) H Red Blood Count 3.74 M/UL (4.70-6.10) L Hemoglobin 10.5 G/DL (14.2-18.0) L Hematocrit 35.7 % (42.0-52.0) L Mean Corpuscular Volume 95 FL (80-99) Mean Corpuscular Hemoglobin 28.0 PG (27.0-31.0) Mean Corpuscular Hemoglobin Concent 29.4 G/DL (32.0-36.0) L Red Cell Distribution Width 17.5 % (11.6-14.8) H Platelet Count 404 K/UL (150-450) Mean Platelet Volume 7.1 FL (6.5-10.1) Neutrophils (%) (Auto) 74.0 % (45.0-75.0) Lymphocytes (%) (Auto) 17.1 % (20.0-45.0) L Monocytes (%) (Auto) 6.6 % (1.0-10.0) Eosinophils (%) (Auto) 1.3 % (0.0-3.0) Basophils (%) (Auto) 1.0 % (0.0-2.0) Sodium Level 152 MMOL/L (136-145) H Potassium Level 3.2 MMOL/L (3.5-5.1) L Chloride Level 109 MMOL/L (98-107) H Carbon Dioxide Level 22 MMOL/L (21-32) Anion Gap 21 mmol/L (5-15) H Blood Urea Nitrogen 77 mg/dL (7-18) H Creatinine 8.9 MG/DL (0.55-1.30) H Estimat Glomerular Filtration Rate 6.0 mL/min (>60) Glucose Level 238 MG/DL (74-106) H Calcium Level 9.6 MG/DL (8.5-10.1) Total Bilirubin 0.4 MG/DL (0.2-1.0) Aspartate Amino Transf (AST/SGOT) 22 U/L (15-37) Alanine Aminotransferase (ALT/SGPT) 17 U/L (12-78) Alkaline Phosphatase 136 U/L (46-116) H Total Protein 9.6 G/DL (6.4-8.2) H Albumin 3.0 G/DL (3.4-5.0) L Globulin 6.6 g/dL Albumin/Globulin Ratio 0.5 (1.0-2.7) L Test 08/12/19 12:33 POC Whole Blood Glucose Pending Microbiology Date/Time Source Procedure Growth Status 08/09/19 14:30 Blood Blood Culture - Preliminary YEAST Resulted Objective HEAD AND NECK: No JVD. Tracheostomy in place. Left IJ HD catheter now in place Right IJ PermCath in place LUNGS: Decreased breath sounds. CARDIOVASCULAR: Regular S1 and S2. Tachycardic. ABDOMEN: Soft. PEG in place EXTREMITIES: No pitting edema. Gio Baker MD Aug 12, 2019 14:30
--- NOTE | 2019-08-12 15:03 | Diagnostic Imaging Report ---
Indication: Abdominal pain Technique: Supine view of the abdomen Comparison: 06/24/2019 Findings: Unremarkable bowel gas pattern. Gastrostomy is noted. No masses or unusual calcifications. Right jugular tunneled dialysis catheter is included in the imaging volume. Impression: No acute process. Findings as noted
--- NOTE | 2019-08-12 15:05 | Diagnostic Imaging Report ---
Indication: Chest pain Technique: One view of the chest Comparison: 08/09/2019 Findings: There are some linear opacities in the right midlung as well as some left perihilar interstitial prominence, unchanged. The heart size is normal. There is a tracheostomy in place. No significant change Impression: Unchanged, over 3 days, findings as above.
[2019-08-12 16:00] VITALS: BP 114/71
[2019-08-12] MEDS: Micafungin 100 MG in NS 110 ML IVPB SCH (18:30)
[2019-08-12 20:00] VITALS: BP 108/73
[2019-08-12] MEDS: Dyna-Hex 2% Top Sol 2oz TOPIC SCH (20:21)
--- NOTE | 2019-08-12 21:26 | General Progress Note ---
Assessment/Plan Problem List: (1) HTN (hypertension) ICD Codes: I10 - Essential (primary) hypertension SNOMED: 78535083 (2) CASSANDRA (acute kidney injury) ICD Codes: N17.9 - Acute kidney failure, unspecified SNOMED: 8186144, 05345378 (3) Anemia in chronic kidney disease (CKD) ICD Codes: N18.9 - Chronic kidney disease, unspecified; D63.1 - Anemia in chronic kidney disease SNOMED: 142490231 (4) Renal failure ICD Codes: N19 - Unspecified kidney failure SNOMED: 70208388 (5) Respiratory failure requiring intubation ICD Codes: J96.90 - Respiratory failure, unspecified, unspecified whether with hypoxia or hypercapnia; A41.89 - Other specified sepsis SNOMED: 215066461, 644253246 (6) Pneumonia due to COVID-19 virus ICD Codes: U07.1 - COVID-19; J12.89 - Other viral pneumonia SNOMED: 645534504, 009265762 (7) Sepsis due to severe acute respiratory syndrome coronavirus 2 (SARS-CoV-2) ICD Codes: U07.1 - COVID-19; A41.89 - Other specified sepsis SNOMED: 465140346, 241621771 Status: progressing, unchanged, deteriorating Assessment/Plan: afebrile supportive rx looking for placement off pressor sepsis trach and peg diaylsis per renal Subjective ROS Limited/Unobtainable: Yes Allergies: Coded Allergies: No Known Allergies (Unverified , 05/28/19) Objective Last 24 Hour Vital Signs Date Time Temp Pulse Resp B/P (MAP) Pulse Ox O2 Delivery O2 Flow Rate FiO2 08/12/19 19:30 125 29 30 08/12/19 16:00 Mechanical Ventilator Mechanical Ventilator 08/12/19 16:00 116 08/12/19 16:00 98.2 117 28 114/71 (85) 100 08/12/19 16:00 30 08/12/19 12:00 120 08/12/19 12:00 Mechanical Ventilator Mechanical Ventilator 08/12/19 12:00 30 08/12/19 12:00 98.6 116 26 101/70 (80) 100 08/12/19 10:58 114 26 30 08/12/19 10:58 100 08/12/19 09:18 110 26 30 08/12/19 08:00 30 08/12/19 08:00 96.8 118 26 102/70 (81) 100 08/12/19 08:00 118 08/12/19 08:00 Mechanical Ventilator Mechanical Ventilator 08/12/19 07:21 121 29 30 08/12/19 04:00 137 08/12/19 04:00 101.8 137 29 127/84 (98) 100 08/12/19 04:00 Mechanical Ventilator Mechanical Ventilator 08/12/19 04:00 30 08/12/19 03:30 134 32 30 08/12/19 00:00 Mechanical Ventilator Mechanical Ventilator 08/12/19 00:00 99.5 105 28 128/64 (85) 100 08/11/19 23:34 129 08/11/19 23:30 122 32 30 Intake and Output 08/11/19 08/12/19 19:00 07:00 Intake Total 1415.000 ml 500 ml Output Total 600 ml 500 ml Balance 815.000 ml 0 ml Free Water 50 ml 60 ml IV Total 385.000 ml Tube Feeding 930 ml 440 ml Other 50 ml Stool Total 600 ml 500 ml Laboratory Tests 08/11/19 23:24: POC Whole Blood Glucose 260H 08/12/19 03:15: White Blood Count 12.3H, Red Blood Count 3.74L, Hemoglobin 10.5L, Hematocrit 35.7L, Mean Corpuscular Volume 95, Mean Corpuscular Hemoglobin 28.0, Mean Corpuscular Hemoglobin Concent 29.4L, Red Cell Distribution Width 17.5H, Platelet Count 404, Mean Platelet Volume 7.1, Neutrophils (%) (Auto) 74.0, Lymphocytes (%) (Auto) 17.1L, Monocytes (%) (Auto) 6.6, Eosinophils (%) (Auto) 1.3, Basophils (%) (Auto) 1.0, Sodium Level 152H, Potassium Level 3.2L, Chloride Level 109H, Carbon Dioxide Level 22, Anion Gap 21H, Blood Urea Nitrogen 77H, Creatinine 8.9H, Estimat Glomerular Filtration Rate 6.0, Glucose Level 238H, Calcium Level 9.6, Total Bilirubin 0.4, Aspartate Amino Transf (AST/ SGOT) 22, Alanine Aminotransferase (ALT/SGPT) 17, Alkaline Phosphatase 136H, Total Protein 9.6H, Albumin 3.0L, Globulin 6.6, Albumin/Globulin Ratio 0.5L 08/12/19 05:16: POC Whole Blood Glucose [Pending] 08/12/19 12:33: POC Whole Blood Glucose [Pending] Height (Feet): 6 Height (Inches): 1.00 Weight (Pounds): 170 Karishma Mulligan MD Aug 12, 2019 21:26
--- NOTE | 2019-08-12 22:55 | Pulmonolgy Critical Care Note ---
Critical Care - Asmt/Plan Assessment/Plan: Pulmonary CCM Progress Note HPI: Patient is a 68 year old man, intermediate resident, admitted c/o shortness of breath, cough, noted to have Covid 19 Pneumonia, Respiratory Failure Remains on Ventilator, CXR infiltrates stable 7/2 Anemia CKD on HD - on Mitodrine, not tolerating weaning, will need eventual placement, second consecutive repeat COVID19 test negative Preserved EF FIO2 30%, P5, adequate O2 sats, remains on ACVC, s/p Tracheostomy previously, sp PEG Fevers today, line removed On AB per ID for coagulase negative staph MRSA sputum Reviewed earlier Past Medical History: COPD, CKD, Hypertension, Anemia Allergies: No Known Allergies Improving Pulmonary Status on HD Physical Exam Vital Signs Noted Stable on ventilator Chronically ill appearing Deferred Covid19 Impression: COVID-19 virus infection Pneumonia Respiratory failure on ventilator, wean as tolerated once off pressors CKD - on HD Hypotension on pressors previously Cardiomegaly Leukocytosis Elevated AST COPD Chronic Kidney Disease - HD H/o Hypertension Worsening anemia sepsis sinus tachycardia Plan: trach care as is Antibiotics per ID HD per renal monitor vitals AC -joseph as tolerated anxiolytics if needed 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 if needed; Monitor lab data nutrition feeds Hemodialysis per Renal impression, plan, and exam edited and reviewed in detail care discussed with RN Laboratory Tests Noted: CXR: Hypoventilatory exam, interstitial changes, cardiomegaly, improving infiltrates Subjective ROS Limited/Unobtainable: No Constitutional: Denies: fever Respiratory: Reports: dry cough, shortness of breath Gastrointestinal/Abdominal: Reports: diarrhea, other - colace was stopped Psychiatric: Reports: other - refuses labs Allergies: Coded Allergies: No Known Allergies (Unverified , 05/28/19) All Systems: reviewed and negative except above Labs noted Critical Care - Objective Last 24 Hour Vital Signs Date Time Temp Pulse Resp B/P (MAP) Pulse Ox O2 Delivery O2 Flow Rate FiO2 08/12/19 19:30 125 29 30 08/12/19 16:00 Mechanical Ventilator Mechanical Ventilator 08/12/19 16:00 116 08/12/19 16:00 98.2 117 28 114/71 (85) 100 08/12/19 16:00 30 08/12/19 12:00 120 08/12/19 12:00 Mechanical Ventilator Mechanical Ventilator 08/12/19 12:00 30 08/12/19 12:00 98.6 116 26 101/70 (80) 100 08/12/19 10:58 114 26 30 08/12/19 10:58 100 08/12/19 09:18 110 26 30 08/12/19 08:00 30 08/12/19 08:00 96.8 118 26 102/70 (81) 100 08/12/19 08:00 118 08/12/19 08:00 Mechanical Ventilator Mechanical Ventilator 08/12/19 07:21 121 29 30 08/12/19 04:00 137 08/12/19 04:00 101.8 137 29 127/84 (98) 100 08/12/19 04:00 Mechanical Ventilator Mechanical Ventilator 08/12/19 04:00 30 08/12/19 03:30 134 32 30 08/12/19 00:00 Mechanical Ventilator Mechanical Ventilator 08/12/19 00:00 99.5 105 28 128/64 (85) 100 08/11/19 23:34 129 08/11/19 23:30 122 32 30 Accucheck: 246 Critical Care - Subjective ROS Limited/Unobtainable: Yes Condition: stable FI02: 30 Vent Support Breath Rate: 26 Vent Support Mode: AC Vent Tidal Volume: 500 Sputum Amount: Small PEEP: 5.0 PIP: 29 Tube Feeding Amount: 40 I&O: Intake and Output 08/11/19 08/12/19 19:00 07:00 Intake Total 1415.000 ml 500 ml Output Total 600 ml 500 ml Balance 815.000 ml 0 ml Free Water 50 ml 60 ml IV Total 385.000 ml Tube Feeding 930 ml 440 ml Other 50 ml Stool Total 600 ml 500 ml ET-Tube: 7.5 ET Position: 24 Arturo Mckeon MD Aug 12, 2019 22:55
[2019-08-13] VITALS: BP 120/67
[2019-08-13 04:00] VITALS: BP 118/75
[2019-08-13] MEDS: Metoclopramide 10mg/2ml Inj IVP SCH ×3 (06:04→21:44)
[2019-08-13] MEDS: NovoLOG Insulin Flexpen SUBQ SCH ×4 (06:11→23:47)
[2019-08-13 08:00] VITALS: BP 115/77
--- NOTE | 2019-08-13 08:18 | General Progress Note ---
Assessment/Plan Status: progressing, unchanged, deteriorating Assessment/Plan: 1. Diabetes. 2. Hypertension. 3. Coronary artery disease. 4. COPD. 5. Psychiatric disorder with schizophrenia. 6. History of hepatitis C. 7. HLP. 8. Chronic kidney disease, now with acute renal failure. 9. Anemia. 10. Hypothyroidism. 11. Spinal stenosis. 12. Constipation. 13. GERD. 14. COVID positive HD per nephrology fu labs icu care s/p PEG GTF TF at 40 cc prn imodium monitor for residuals Subjective ROS Limited/Unobtainable: No Allergies: Coded Allergies: No Known Allergies (Unverified , 05/28/19) Objective Last 24 Hour Vital Signs Date Time Temp Pulse Resp B/P (MAP) Pulse Ox O2 Delivery O2 Flow Rate FiO2 08/13/19 08:00 99.5 112 18 115/77 (90) 100 08/13/19 07:24 110 26 30 08/13/19 04:00 98.8 120 18 118/75 (89) 100 08/13/19 04:00 Mechanical Ventilator Mechanical Ventilator 08/13/19 04:00 30 08/13/19 03:30 118 08/13/19 02:53 121 26 30 08/13/19 00:00 99.1 120 28 120/67 (84) 99 08/13/19 00:00 Mechanical Ventilator Mechanical Ventilator 08/12/19 23:36 123 08/12/19 23:30 87 27 30 08/12/19 20:00 99.4 119 28 108/73 (85) 98 08/12/19 20:00 Mechanical Ventilator Mechanical Ventilator 08/12/19 20:00 30 08/12/19 19:30 125 29 30 08/12/19 19:25 128 08/12/19 16:00 Mechanical Ventilator Mechanical Ventilator 08/12/19 16:00 116 08/12/19 16:00 98.2 117 28 114/71 (85) 100 08/12/19 16:00 30 08/12/19 12:00 120 08/12/19 12:00 Mechanical Ventilator Mechanical Ventilator 08/12/19 12:00 30 08/12/19 12:00 98.6 116 26 101/70 (80) 100 08/12/19 10:58 114 26 30 08/12/19 10:58 100 08/12/19 09:18 110 26 30 Intake and Output 08/12/19 08/13/19 19:00 07:00 Intake Total 570 ml 630 ml Output Total 1400 ml 200 ml Balance -830 ml 430 ml Free Water 90 ml 80 ml IV Total 110 ml Tube Feeding 480 ml 440 ml Stool Total 400 ml 200 ml Hemodialysis UF 1000 ml # Bowel Movements 1 Laboratory Tests 08/12/19 12:33: POC Whole Blood Glucose [Pending] 08/12/19 18:29: POC Whole Blood Glucose 246H 08/12/19 23:12: POC Whole Blood Glucose 232H 08/13/19 06:07: POC Whole Blood Glucose [Pending] Height (Feet): 6 Height (Inches): 1.00 Weight (Pounds): 172 General Appearance: no apparent distress EENT: normal ENT inspection Neck: supple Cardiovascular: normal rate Respiratory/Chest: decreased breath sounds Abdomen: normal bowel sounds, non tender, soft Extremities: non-tender Marito Ramires MD Aug 13, 2019 08:18
[2019-08-13] MEDS: Pantoprazole Inj IVP SCH (09:00)
[2019-08-13] MEDS: Enoxaparin 30mg Inj SUBQ SCH (09:02)
[2019-08-13] MEDS ORDERED: NS 275ml ONE (09:51)
[2019-08-13] MEDS ORDERED: Tubing IV Secondary IV ONE (09:51)
[2019-08-13] MEDS ORDERED: NS 500ML ONE (09:51)
--- NOTE | 2019-08-13 10:24 | Infectious Diseases Prog Note ---
Assessment/Plan Assessment/Plan IMPRESSION: 1. COVID19 pneumonia Positive: 05/27, 05/31 , 06/05, 06/09 ,5, 06/19, 06/23, 06/27, 07/03, 07/15, 07/29 Negative: 07/26, 08/04, 08/05 2. MRSA carrier. 3. Chronic kidney disease , end-stage renal disease. 4. COPD. 5. Hypertension. 6. Anemia. 7. Hypothyroidism. 8. Hyperlipidemia. 9. Major depression. 10. Leukocytosis 11. Hypotension 12. Hepatitis C 13. Hyperuricemia 14. Diarrhea, C difficile negative 15. septic shock 16.Sepsis Catheter tip yeast blood culture: Gram positive cocci 17. Pneumonia with Staph aureus ( MRSA) 18. Candidal sepsis 19. Diarrhea, C. difficile negative RECOMMENDATIONS: change Micafungin to Fluconazole Will f/u cultures Case was D/W pharmacy Subjective ROS Limited/Unobtainable: Yes Gastrointestinal/Abdominal: Reports: diarrhea Allergies: Coded Allergies: No Known Allergies (Unverified , 05/28/19) Objective Last 24 Hour Vital Signs Date Time Temp Pulse Resp B/P (MAP) Pulse Ox O2 Delivery O2 Flow Rate FiO2 08/13/19 08:00 99.5 112 18 115/77 (90) 100 08/13/19 08:00 Mechanical Ventilator Mechanical Ventilator 08/13/19 08:00 30 08/13/19 07:24 110 26 30 08/13/19 04:00 98.8 120 18 118/75 (89) 100 08/13/19 04:00 Mechanical Ventilator Mechanical Ventilator 08/13/19 04:00 30 08/13/19 03:30 118 08/13/19 02:53 121 26 30 08/13/19 00:00 99.1 120 28 120/67 (84) 99 08/13/19 00:00 Mechanical Ventilator Mechanical Ventilator 08/12/19 23:36 123 08/12/19 23:30 87 27 30 08/12/19 20:00 99.4 119 28 108/73 (85) 98 08/12/19 20:00 Mechanical Ventilator Mechanical Ventilator 08/12/19 20:00 30 08/12/19 19:30 125 29 30 08/12/19 19:25 128 08/12/19 16:00 Mechanical Ventilator Mechanical Ventilator 08/12/19 16:00 116 08/12/19 16:00 98.2 117 28 114/71 (85) 100 08/12/19 16:00 30 08/12/19 12:00 120 08/12/19 12:00 Mechanical Ventilator Mechanical Ventilator 08/12/19 12:00 30 08/12/19 12:00 98.6 116 26 101/70 (80) 100 08/12/19 10:58 114 26 30 08/12/19 10:58 100 Height (Feet): 6 Height (Inches): 1.00 Weight (Pounds): 172 HEENT: status post trach Respiratory/Chest: lungs clear, other - on ventilator Cardiovascular: tachycardia, other - permacath Abdomen: soft, non tender, other - GT & rectal tube Extremities: no edema Neurologic/Psychiatric: other - sleeping Laboratory Tests Test 08/12/19 12:33 08/12/19 18:29 08/12/19 23:12 08/13/19 06:07 POC Whole Blood Glucose Pending 246 MG/DL (74-106) H 232 MG/DL (74-106) H Pending Current Medications Medications (Trade) Dose Ordered Sig/Anthony Route PRN Reason Start Time Stop Time Status Last Admin Dose Admin Acetaminophen (Tylenol) 650 mg Q4H PRN GT Temp >100.5 08/09/19 08:30 09/08/19 08:29 08/11/19 21:54 Acetaminophen (Tylenol) 650 mg Q4H PRN NG For Pain 08/04/19 21:38 09/03/19 21:37 08/08/19 17:08 Chlorhexidine Gluconate (Michelle-Hex 2%) 1 applic DAILY@1999 TOPIC 08/05/19 20:00 09/05/19 19:59 08/12/19 20:21 Dextrose (Dextrose 50%) 25 ml Q30M PRN IV Hypoglycemia 08/04/19 22:00 09/18/19 19:29 Dextrose (Dextrose 50%) 50 ml Q30M PRN IV Hypoglycemia 08/04/19 22:00 09/18/19 19:29 Enoxaparin Sodium (Lovenox) 30 mg DAILY SUBQ 08/05/19 09:00 08/27/19 08:59 08/13/19 09:02 Epoetin Aftab (Epoetin Aftab(ESRD on dialysis)) 10,000 unit FRI-FRI-FRI SUBQ 08/11/19 21:00 11/09/19 20:59 08/11/19 20:04 Haloperidol Lactate 5 mg/ Dextrose 56 ml @ 224 mls/hr Q6H PRN IVPB Agitation 08/04/19 21:38 09/18/19 21:37 Hydralazine HCl (Apresoline) 10 mg Q4H PRN IV Blood pressure over 160 systol 08/04/19 21:39 11/02/19 21:38 Insulin Aspart (NovoLOG) EVERY 6 HOURS SUBQ 08/05/19 00:00 09/19/19 00:00 08/13/19 06:11 Loperamide HCl (Imodium) 2 mg Q6H PRN NG Diarrhea 08/11/19 10:15 09/10/19 10:14 08/12/19 20:38 Metoclopramide HCl (Reglan) 5 mg Q8HR IVP 08/05/19 06:00 09/04/19 05:59 08/13/19 06:04 Micafungin Sodium 100 mg/Sodium Chloride 110 ml @ 110 mls/hr Q24H IVPB 08/11/19 18:00 08/18/19 17:59 08/12/19 18:30 Pantoprazole (Protonix) 40 mg DAILY IVP 08/05/19 09:00 08/26/19 08:59 08/13/19 09:00 Ted Leyva MD Aug 13, 2019 10:24
--- NOTE | 2019-08-13 11:16 | Hematology/Onc Progress Note ---
Assessment/Plan Assessment/Plan Assessment and Recs: # Anemia of chronic disease, likely related ot underlying kidney disease has COIVD19++++++ --> hgb trend 9-->8-->7.3-->7.9-->6.8->9.5-->10->8.3-->7.7-->7.1-->8.9->8.8->7.7 -->8.1 ->7.9-->7.7 -->8.2-->8.1 -->7.9-->8.5 -->9->9.2-->9.5-->10.7 -->9.8--> 10.2-->11.8 -->11.9-->8.8 ->9.4->9-->8.3 -->8.5-->9.4->9.8-->9-->8.3-->11.6--> 10.8-->10.5-->10 --> transfuse as needed, hgb goal >7 --> no evidence of hemolysis --> peripheral smear has been reviewed --> epogen started 3 x a week ==>> transfuse 06/08, 06/15 # Leukocytosis likely related to suspected COVID-19 virus infection --> completed plaquenil --> trend smear as needed --> wbc trend: 4-->11-->14.5-->21-->26-->21->24--.28-->23-->19-->16.2-->21--> 11.2 -->12.5-->12.3-->12.4-->18.5-->18.5-->17->13-->18.2-->22.2-->25-->17.4-->17 -->14.2-->14-->16-->15.5-->9->17->11.5-->12->12 --> pulm is aware --> on abx cefepime/vanc->zosyn/vanc-->dom/vanc-->dom-->levaquin/cefepime--> vanc/zosyn --> pressors as needed --> 06/27 covid 19++ --> pressors as needed in icu --> c diff negative 08/08 # Thrombocytopenia/Lymphopenia --> likely related to covid19 --> plt 129k-->186k-->251-->285-->384 -->430-->539-->515-->447-->451-->404-->544 -->244 -->393 # Respiratory failure with covid19+ --> s/p vent/trach --> weaning # Possible Pneumonia --> abx completed --> 07/13 cxr: Improved right lung infiltrates. # Cardiomegaly # Transaminitis with Elevated AST # COPD # Chronic Kidney Disease --> per renal hd --> s/p right femoral cath 07/02 # Hypertension # peg # Dvt ppx lovenox Appreciate consultation and ernesto Rn Subjective Allergies: Coded Allergies: No Known Allergies (Unverified , 05/28/19) All Systems: reviewed and negative except above Subjective 06/01 nv, extremely agitated, not allowing labs draws, no night sweats, cbc ordered 06/02 confused, restraints, on abx and plaquenil, hgb 7.9, nrb 15 L 06/03 is with nonrebreather, but not compliant, remains confused 06/05 no bleeding, labs noted, no major bleeding, otherwise comfortable 06/06 labs reviewed, no bleeding, meds noted, no night sweats, on levo and nonrebreather 06/07 labs noted, no bleeding, meds reviewed, no bleeding, wbc higher 06/08 to get 2 units prbc, no night sweats, meds reviewed 06/09 is on cefepime and vanc, labs noted, ernesto Rn, no bleeding 06/10 no major changes, labs reviewed, wbc 28k, on abx, cefepime 06/12 remains in icu, labs noted, no night sweats or bleeding 06/13 sluggish pupils, remains agitated, per psych, no bleding, on vent, wbc sitll high 06/14 still confused, remains on vent, with ng, running nepro, on pressors 06/15 icu, febrile, non verbal, hgb 7.1, blood pending, completed plaq 06/16 remains in the icu, nonverbal, plan for hd tomorrow, ernesto rn 06/17 in icu, on pressor, nonverbal, on abx, no bleeding 06/19 no bleeding, nonverbal in icu, hgb is 7.7 06/20 on zosyn, tube feeds, vent, labs noted, in icu, nv 06/21 gettng hd as per renal, in icu, nv, no bleeding, tfs 06/22 icu, cxr with slight improvement, cooling blanket, weaning today 06/23 wewaning, in icu, on vent, abx, and pressors as needed, labs noted 06/24 failed weaning, off abx, completed plaquenil, hgb 8.1 06/26 icu, weaning for this am, afebrile, hgb 8 06/27 in icu, remains comotose, weaning started on peep, no night sweats 06/28 weaning today, off abx, restraints, no distress, h/h stable 06/29 covid 19+, failed weaning, no blood transfusion needed 06/30 icu, on vent, labs reviewed, no distress 07/01 in icu, may need trach, remains on hd per renal, labs noted 07/02 s/p right fem cath, failed wean, no new orders, h/h stable 07/03 is somewhat more responsive, on abx, no bleeding, weaning and HD today 07/04 hd as per renal, weaning off vent, no bleeding today 07/05 obtunded, no bleding overnight, with hd for tomorrow noted, vanc 07/08 no events, remains with trach/vent, ernesto Rn, no bleeding, cbc is noted 07/09 no overnight events, peg for friday pending consent 07/10 off pressors, vent, restraints, labs reviewed 07/11 no acute events is on pressors, intubated, agitated still 07/12 is resting comfortably, no bleeding, emds reviewed and noted 07/13 icu, no events, trach, cxr reviewed, 07/14 is onv ent, tachypneic and tachycardic, labs noted 07/15 remains confused, intubated, dw Rn, no bleeding 07/17 icu, cxr improving infiltrates, levo gtt, airborne/contact isolation 07/18 is on broad spectrum abx, is on levaquin and cefepime, wbc 16 agitated 07/19 icu, levo gtt, cxr unchanged, tachy, hd thursday 07/20 sedated, safety restraints, labs reviewed 07/21 hd was done yesterday, lower pressor requirements, wbc is worse, on abx 07/22 icu, meds and labs reviewed, vent, no distress 07/24 on vent, in icu, labs noted, remains agitated, and confused 07/25 remains obtunded, on vent, on pressor, hgb 9, wbc elev 07/26 icu, levo gtt, vent, iv abx, nonverbal 07/27 failed weaning, labs reviewed, repeat covid swab pending 07/28 labs are noted, no bleeding, on vent/trach gtube feeds dw rn 07/29 iuc, restraints, no new changes, vent 07/31 is asleep, comfortable, no events, labs reviewed, restraints+ 08/01 no events, agitated, no bleeding, meds noted, on gtube feeds 08/02 remains on vent, no bleeding, wbc higher 19, hgb 9, on abx 08/03 labs noted, on vent, no bleeding, wbc 17, hgb better 08/04 labs reviewed, no bleeding, does not require prbc, on vent 08/05 more alert, is on trach, vent, no major events, no bleeding, peg+ 08/07 no bleeding no chills, no night sweats, is on vent/trach 08/08 recent covid swab negative, restraints, cxr unchanged 08/09 c diff negative, zosyn, hd today, gtf 08/10 no overnight events, labs reviewed, afebrile 08/11 labs reviewed, meds noted, no fc, no major changes, wbc 12 08/12 abx changed to flucon, on abx, wbc 12 Objective Objective Current Medications Medications (Trade) Dose Ordered Sig/Anthony Route PRN Reason Start Time Stop Time Status Last Admin Dose Admin Acetaminophen (Tylenol) 650 mg Q4H PRN GT Temp >100.5 08/09/19 08:30 09/08/19 08:29 08/11/19 21:54 Acetaminophen (Tylenol) 650 mg Q4H PRN NG For Pain 08/04/19 21:38 09/03/19 21:37 08/08/19 17:08 Chlorhexidine Gluconate (Michelle-Hex 2%) 1 applic DAILY@2000 TOPIC 08/05/19 20:00 09/05/19 19:59 08/12/19 20:21 Dextrose (Dextrose 50%) 25 ml Q30M PRN IV Hypoglycemia 08/04/19 22:00 09/18/19 19:29 Dextrose (Dextrose 50%) 50 ml Q30M PRN IV Hypoglycemia 08/04/19 22:00 09/18/19 19:29 Enoxaparin Sodium (Lovenox) 30 mg DAILY SUBQ 08/05/19 09:00 08/27/19 08:59 08/13/19 09:02 Epoetin Aftab (Epoetin Aftab(ESRD on dialysis)) 10,000 unit FRI-FRI-FRI SUBQ 08/11/19 21:00 11/09/19 20:59 08/11/19 20:04 Fluconazole (Diflucan) 200 mg DAILY NG 08/13/19 10:24 08/20/19 10:23 Haloperidol Lactate 5 mg/ Dextrose 56 ml @ 224 mls/hr Q6H PRN IVPB Agitation 08/04/19 21:38 09/18/19 21:37 Hydralazine HCl (Apresoline) 10 mg Q4H PRN IV Blood pressure over 160 systol 08/04/19 21:39 11/02/19 21:38 Insulin Aspart (NovoLOG) EVERY 6 HOURS SUBQ 08/05/19 00:00 09/19/19 00:00 08/13/19 06:11 Loperamide HCl (Imodium) 2 mg Q6H PRN NG Diarrhea 08/11/19 10:15 09/10/19 10:14 08/12/19 20:38 Metoclopramide HCl (Reglan) 5 mg Q8HR IVP 08/05/19 06:00 09/04/19 05:59 08/13/19 06:04 Pantoprazole (Protonix) 40 mg DAILY IVP 08/05/19 09:00 08/26/19 08:59 08/13/19 09:00 Last 24 Hour Vital Signs Date Time Temp Pulse Resp B/P (MAP) Pulse Ox O2 Delivery O2 Flow Rate FiO2 08/13/19 08:00 99.5 112 18 115/77 (90) 100 08/13/19 08:00 Mechanical Ventilator Mechanical Ventilator 08/13/19 08:00 30 08/13/19 07:24 110 26 30 08/13/19 04:00 98.8 120 18 118/75 (89) 100 08/13/19 04:00 Mechanical Ventilator Mechanical Ventilator 08/13/19 04:00 30 08/13/19 03:30 118 08/13/19 02:53 121 26 30 08/13/19 00:00 99.1 120 28 120/67 (84) 99 08/13/19 00:00 Mechanical Ventilator Mechanical Ventilator 08/12/19 23:36 123 08/12/19 23:30 87 27 30 08/12/19 20:00 99.4 119 28 108/73 (85) 98 08/12/19 20:00 Mechanical Ventilator Mechanical Ventilator 08/12/19 20:00 30 08/12/19 19:30 125 29 30 08/12/19 19:25 128 08/12/19 16:00 Mechanical Ventilator Mechanical Ventilator 08/12/19 16:00 116 08/12/19 16:00 98.2 117 28 114/71 (85) 100 08/12/19 16:00 30 08/12/19 12:00 120 08/12/19 12:00 Mechanical Ventilator Mechanical Ventilator 08/12/19 12:00 30 08/12/19 12:00 98.6 116 26 101/70 (80) 100 08/12/19 10:58 114 26 30 08/12/19 10:58 100 08/12/19 09:18 110 26 30 08/12/19 08:00 30 08/12/19 08:00 96.8 118 26 102/70 (81) 100 08/12/19 08:00 118 08/12/19 08:00 Mechanical Ventilator Mechanical Ventilator 08/12/19 07:21 121 29 30 08/12/19 04:00 137 08/12/19 04:00 101.8 137 29 127/84 (98) 100 08/12/19 04:00 Mechanical Ventilator Mechanical Ventilator 08/12/19 04:00 30 08/12/19 03:30 134 32 30 08/12/19 00:00 Mechanical Ventilator Mechanical Ventilator 08/12/19 00:00 99.5 105 28 128/64 (85) 100 08/11/19 23:34 129 08/11/19 23:30 122 32 30 08/11/19 20:00 Mechanical Ventilator 08/11/19 20:00 30 08/11/19 20:00 Mechanical Ventilator Mechanical Ventilator 08/11/19 20:00 131 08/11/19 20:00 99.9 120 27 121/70 (87) 100 08/11/19 19:30 121 27 30 08/11/19 16:00 Mechanical Ventilator 08/11/19 16:00 100.4 131 22 122/72 (89) 100 08/11/19 16:00 30 08/11/19 16:00 139 08/11/19 15:53 100.4 08/11/19 15:30 100.9 135 08/11/19 14:55 130 30 30 08/11/19 12:26 133 28 30 08/11/19 12:00 99.5 130 22 102/61 (75) 100 08/11/19 12:00 131 08/11/19 12:00 30 08/11/19 12:00 Mechanical Ventilator Intake and Output 08/12/19 08/13/19 19:00 07:00 Intake Total 570 ml 630 ml Output Total 1400 ml 200 ml Balance -830 ml 430 ml Free Water 90 ml 80 ml IV Total 110 ml Tube Feeding 480 ml 440 ml Stool Total 400 ml 200 ml Hemodialysis UF 1000 ml # Bowel Movements 1 Labs Test 08/11/19 01:00 08/11/19 03:00 08/11/19 06:45 08/11/19 11:58 POC Whole Blood Glucose 261 MG/DL (74-106) 272 MG/DL (74-106) 267 MG/DL (74-106) White Blood Count 11.5 K/UL (4.8-10.8) Red Blood Count 3.84 M/UL (4.70-6.10) Hemoglobin 10.8 G/DL (14.2-18.0) Hematocrit 36.8 % (42.0-52.0) Mean Corpuscular Volume 96 FL (80-99) Mean Corpuscular Hemoglobin 28.1 PG (27.0-31.0) Mean Corpuscular Hemoglobin Concent 29.3 G/DL (32.0-36.0) Red Cell Distribution Width 17.7 % (11.6-14.8) Platelet Count 393 K/UL (150-450) Mean Platelet Volume 7.5 FL (6.5-10.1) Neutrophils (%) (Auto) 73.0 % (45.0-75.0) Lymphocytes (%) (Auto) 16.6 % (20.0-45.0) Monocytes (%) (Auto) 8.8 % (1.0-10.0) Eosinophils (%) (Auto) 0.6 % (0.0-3.0) Basophils (%) (Auto) 0.9 % (0.0-2.0) Sodium Level 148 MMOL/L (136-145) Potassium Level 3.1 MMOL/L (3.5-5.1) Chloride Level 106 MMOL/L (98-107) Carbon Dioxide Level 24 MMOL/L (21-32) Anion Gap 18 mmol/L (5-15) Blood Urea Nitrogen 61 mg/dL (7-18) Creatinine 7.7 MG/DL (0.55-1.30) Estimat Glomerular Filtration Rate 7.1 mL/min (>60) Glucose Level 233 MG/DL (74-106) Calcium Level 9.4 MG/DL (8.5-10.1) Phosphorus Level 3.2 MG/DL (2.5-4.9) Magnesium Level 2.4 MG/DL (1.8-2.4) Total Bilirubin 0.1 MG/DL (0.2-1.0) Aspartate Amino Transf (AST/SGOT) 28 U/L (15-37) Alanine Aminotransferase (ALT/SGPT) 16 U/L (12-78) Alkaline Phosphatase 114 U/L (46-116) Total Protein 9.3 G/DL (6.4-8.2) Albumin 2.8 G/DL (3.4-5.0) Globulin 6.5 g/dL Albumin/Globulin Ratio 0.4 (1.0-2.7) Random Vancomycin Level 17.4 ug/mL Test 08/11/19 17:56 08/11/19 23:24 08/12/19 03:15 08/12/19 05:16 POC Whole Blood Glucose 289 MG/DL (74-106) 260 MG/DL (74-106) White Blood Count 12.3 K/UL (4.8-10.8) Red Blood Count 3.74 M/UL (4.70-6.10) Hemoglobin 10.5 G/DL (14.2-18.0) Hematocrit 35.7 % (42.0-52.0) Mean Corpuscular Volume 95 FL (80-99) Mean Corpuscular Hemoglobin 28.0 PG (27.0-31.0) Mean Corpuscular Hemoglobin Concent 29.4 G/DL (32.0-36.0) Red Cell Distribution Width 17.5 % (11.6-14.8) Platelet Count 404 K/UL (150-450) Mean Platelet Volume 7.1 FL (6.5-10.1) Neutrophils (%) (Auto) 74.0 % (45.0-75.0) Lymphocytes (%) (Auto) 17.1 % (20.0-45.0) Monocytes (%) (Auto) 6.6 % (1.0-10.0) Eosinophils (%) (Auto) 1.3 % (0.0-3.0) Basophils (%) (Auto) 1.0 % (0.0-2.0) Sodium Level 152 MMOL/L (136-145) Potassium Level 3.2 MMOL/L (3.5-5.1) Chloride Level 109 MMOL/L (98-107) Carbon Dioxide Level 22 MMOL/L (21-32) Anion Gap 21 mmol/L (5-15) Blood Urea Nitrogen 77 mg/dL (7-18) Creatinine 8.9 MG/DL (0.55-1.30) Estimat Glomerular Filtration Rate 6.0 mL/min (>60) Glucose Level 238 MG/DL (74-106) Calcium Level 9.6 MG/DL (8.5-10.1) Total Bilirubin 0.4 MG/DL (0.2-1.0) Aspartate Amino Transf (AST/SGOT) 22 U/L (15-37) Alanine Aminotransferase (ALT/SGPT) 17 U/L (12-78) Alkaline Phosphatase 136 U/L (46-116) Total Protein 9.6 G/DL (6.4-8.2) Albumin 3.0 G/DL (3.4-5.0) Globulin 6.6 g/dL Albumin/Globulin Ratio 0.5 (1.0-2.7) Test 08/12/19 12:33 08/12/19 18:29 08/12/19 23:12 08/13/19 06:07 POC Whole Blood Glucose 246 MG/DL (74-106) 232 MG/DL (74-106) Height (Feet): 6 Height (Inches): 1.00 Weight (Pounds): 172 Objective General: nv, confused, sedated Heent: bilateral eye normal inspection, bilateral eye PERRL ++Ng Respiratory: normal breath sounds, no respiratory distress, intubated/vent +++ trach+++ Cardiovascular: regular rate, rhythm, no edema Gastrointestinal: normal inspection, soft, non-distended, peg+ Rectal: deferred Musculoskeletal: normal range of motion, non-tender, R fem cath++ Neurologic: alert, motor strength/tone normal, sensory intact, responsive, speech normal Skin: Decubitus/Ulcer - See RN skin exam. : jamaal+ Greg Cabral MD Aug 13, 2019 11:16
[2019-08-13] MEDS: Fluconazole 100mg tab NG SCH (11:38)
[2019-08-13 12:00] VITALS: BP 113/69
--- NOTE | 2019-08-13 12:39 | Cardiac Electrophysiology PN ---
Assessment/Plan Assessment/Plan 1. NSTEMI type 2. Low level and flat due to renal failure. On Aspirin. EF 60%.Add Lopressor 12.5 bid 2. S/P Septic shock. On Abx. 3. ESRD, on HD per Dr. Cole. S/P PermCath placement by IR 4. VDRF due to COVID pneumonia. S/P Tracheostomy 07/08/19. 5. Sinus tach. Add Lopressor 12.5 bid 6. Dysphagia, S/P PEG 07/13/19 7. COPD. 8. Anemia. DW RN Subjective Subjective In SDU on the vent via trach. Off pressors. Fio2 30% Covid positive x 10. Now has 2 negative Covid. Still sinus tach 100-120s. No atrial fib Getting ready for HD today Objective Last 24 Hour Vital Signs Date Time Temp Pulse Resp B/P (MAP) Pulse Ox O2 Delivery O2 Flow Rate FiO2 08/13/19 11:59 121 31 30 08/13/19 08:00 99.5 112 18 115/77 (90) 100 08/13/19 08:00 Mechanical Ventilator Mechanical Ventilator 08/13/19 08:00 114 08/13/19 08:00 30 08/13/19 07:30 100 08/13/19 07:24 110 26 30 08/13/19 04:00 98.8 120 18 118/75 (89) 100 08/13/19 04:00 Mechanical Ventilator Mechanical Ventilator 08/13/19 04:00 30 08/13/19 03:30 118 08/13/19 02:53 121 26 30 08/13/19 00:00 99.1 120 28 120/67 (84) 99 08/13/19 00:00 Mechanical Ventilator Mechanical Ventilator 08/12/19 23:36 123 08/12/19 23:30 87 27 30 08/12/19 20:00 99.4 119 28 108/73 (85) 98 08/12/19 20:00 Mechanical Ventilator Mechanical Ventilator 08/12/19 20:00 30 08/12/19 19:30 125 29 30 08/12/19 19:25 128 08/12/19 16:00 Mechanical Ventilator Mechanical Ventilator 08/12/19 16:00 116 08/12/19 16:00 98.2 117 28 114/71 (85) 100 08/12/19 16:00 30 Intake and Output 08/12/19 08/13/19 19:00 07:00 Intake Total 570 ml 630 ml Output Total 1400 ml 200 ml Balance -830 ml 430 ml Free Water 90 ml 80 ml IV Total 110 ml Tube Feeding 480 ml 440 ml Stool Total 400 ml 200 ml Hemodialysis UF 1000 ml # Bowel Movements 1 Laboratory Tests Test 08/12/19 18:29 08/12/19 23:12 08/13/19 06:07 08/13/19 11:38 POC Whole Blood Glucose 246 MG/DL (74-106) H 232 MG/DL (74-106) H Pending Pending Objective HEAD AND NECK: No JVD. Tracheostomy in place. Left IJ HD catheter now in place Right IJ PermCath in place LUNGS: Decreased breath sounds. CARDIOVASCULAR: Regular S1 and S2. Tachycardic. ABDOMEN: Soft. PEG in place EXTREMITIES: No pitting edema. Gio Baker MD Aug 13, 2019 12:39
--- NOTE | 2019-08-13 13:55 | Nephrology Progress Note ---
Assessment/Plan Problem List: (1) CASSANDRA (acute kidney injury) (2) Anemia in chronic kidney disease (CKD) (3) HTN (hypertension) (4) COVID-19 Assessment Acute renal failure most likely superimposed on chronic kidney disease Suspected COVID-19 virus infection Possible Pneumonia, lymphopenia, elevated AST Cardiomegaly, possible CHF COPD Hypertension Anemia, most likely related to chronic kidney disease Plan August 12: No can panel done today. Due for dialysis today. Continue per consultants. August 11: Patient labs reviewed. Will order dialysis tomorrow. Continue per consultants. August 10: Patient was dialyzed yesterday. Today's labs checked. Stable from renal standpoint to view August 09: Patient scheduled for hemodialysis today. Will check labs tomorrow. August 08: Lab reviewed. Hemodialysis scheduled for tomorrow. August 07: Dialyzed yesterday. No labs drawn today. Will check labs tomorrow. Continue per consultants. August 06: Patient on dialysis now. Discussed with dialysis nurse. Slight catheter malfunction persist. August 05: Labs reviewed. Dialysis scheduled for tomorrow. Continue per consultants. August 04: No labs done today. Dialyzed yesterday. Check labs tomorrow. Continue per consultants. August 03: Lab reviewed. Due for dialysis today. White blood cell 17,500. August 02: Lab reviewed. Low phosphorus replaced. Hemodialysis ordered for tomorrow. White blood cells over 18,000. August 01: Labs reviewed. Potassium replacement ordered. Remains full code on ventilator via trach. Continue per consultants. July 31: Dialyzed yesterday. No can panel today. Remains full code. Remains on ventilator. Being fed through PEG. Continue per consultants. July 30: Patient due for dialysis today. Labs are reviewed. Remains full code. Status post trach to ventilator. Status post PEG. July 29: Patient dialyzed yesterday. Due for dialysis tomorrow. Remains in ICU. Full code. Status post trach tube to ventilator. Status post PEG. July 28: Due for dialysis today. Labs reviewed. Full code. Patient trached and vented. July 27: Last COVID test negative. COVID test will be repeated tomorrow. Will order dialysis tomorrow. Remains full code. Medication list and labs reviewed. July 26: No labs done today. Dialysis done yesterday. Will check lab tomorrow. Dialysis as needed. July 25: Lab reviewed. Dialysis today. Discussed with RN. July 24: Lab reviewed. Do dialysis tomorrow. Discussed with RN. July 23: Lab reviewed. Dialyzed yesterday. Discussed with RN. Remains full code. Next dialysis July 25. Will check labs tomorrow. July 22: Labs reviewed. Due for dialysis today. Discussed with RN. Watch borderline low blood pressure. Discussed with dialysis nurse. July 21: Today's lab reviewed. Will arrange for dialysis tomorrow. Discussed with RN. Aim to keep the blood pressure above 100 systolic. Continue per consultants. July 20: Patient was dialyzed yesterday. Could not ultrafiltrate much due to low blood pressure. Discussed with SHANIQUE Dick today. No labs drawn today. Continue per consultants. July 19: Due for dialysis today. Discussed with SHANIQUE Dick. Continue per consultants. July 18: Dialyzed July 16. Will order dialysis tomorrow July 19. Continues to be on ventilator through trach. No labs done today. Continue per consultants. July 17: Dialyzed yesterday. Stable from renal standpoint of view. Remains full code. Status post trach on vent. Status post PEG. Continue per consultants. July 16: Dialysis today. Will resume Midodrin to prevent hypotension. Patient remains full code. July 15: Dialyzed yesterday, due for dialysis tomorrow. Labs and medication list reviewed. Continue per consultants. Patient remains full code. COVID-19 detected again. July 14: Patient currently on dialysis. This is continuation of dialysis from yesterday as yesterday's dialysis was cut short due to catheter malfunction. Labs and medication reviewed. Continue per consultants. July 13: Patient currently on hemodialysis. The dialysis catheter which is a intrajugular Kamlesh has poor flow. Will try TPA. Continue per consultants. July 12: Due for PEG today. Due for dialysis tomorrow. Continue per consultants. Discussed with RN. July 11: Plan for dialysis today. Discussed with RN. Data reviewed. July 10: Plan for dialysis tomorrow July 11. Waiting for consent to proceed with PEG. Continue per consultants. Medication reviewed. Labs reviewed. Discussed with RN. July 09: Dialyzed yesterday. Labs reviewed. Medication reviewed. Next hemodialysis July 11. July 08: Patient has tracheostomy now. Connected to ventilator. Due for dialysis today. Continue per consultants. Discussed with SHANIQUE Romero. July 07: Patient is due for tracheostomy today. Patient was last dialyzed July 05. Will order dialysis for tomorrow. July 06: Patient is intubated on ventilator however the plan is to extubate today. Patient was dialysis yesterday July 05. The dialysis time was cut short due to patient's respiratory distress. Only 1 L was removed during dialysis yesterday. Today's lab reviewed. Continue per consultants. Will arrange for dialysis as needed. July 05: Patient due for dialysis today. Remains intubated. Will schedule permacath placement in a.m. blood cultures on July 04 are negative. July 04: Patient was dialyzed yesterday. Due for dialysis tomorrow. Continues to be intubated. After tomorrow's dialysis will order a permacath. July 03: Dialysis is about to be started now Continues to be intubated Will plan to remove the femoral dialysis catheter and exchanged for a new temporary catheter per ID recommendation We will check surveillance blood culture tomorrow July 02: Patient was dialyzed yesterday and due for dialysis tomorrow Stable from renal standpoint W on dialysis Continue per consultants, weaning....... etc. July 01: Dialysis today Other status unchanged June 30: Due for dialysis tomorrow Remains intubated on ventilator Labs and medication reviewed Discussed with SHANIQUE Max from renal standpoint of view June 29: Dialyzed yesterday Due for dialysis tomorrow Stable from renal standpoint to view Keeps failing weaning process June 28: Patient due for dialysis today Stable from renal standpoint to view Continue per consultants June 27: Labs reviewed Due due for dialysis June 28 Discussed with SHANIQUE Dick Continue per consultants Remains intubated on ventilator June 26 Labs reviewed Dialyzed yesterday Started on weaning today Continue to monitor renal parameters June 25: On dialysis now Potassium supplement implemented Continue per consultants Next dialysis June 27June 15: Status unchanged Dialyzed yesterday will dialyze again tomorrow Potassium supplements given Discussed with RN June 23: Due dialysis today Status: Remains intubated on ventilator June 22: Status unchanged Dialyzed yesterday and duefordialysistomorrow Serum sodium stable today June 21 Remains intubated on ventilator Due dialysis today Emphasized high sodium bath for dialysis June 20: Remains intubated on ventilator Dialyzed June 19 next dialysis June 21 Serum sodium 128, will give 250 cc 3% saline Remains full code Discussed with RN Iron panel ordered June 19: Discussed with RN. Patient due for dialysis today. Continue pulmonary support. Remains full code. June 18: Patient dialyzed yesterday June 17 Serum sodium improved but still low Arrange for dialysis tomorrow June 19 Continue per consultants June 17: Due for dialysis today Today's lab reviewed, low serum sodium noted, Emphasized on high sodium bath to dialysis nurse Discussed with RN Alpa June 16: Dialyzed yesterday Remains intubated Labs reviewed, serum sodium 131 Plan to dialyze tomorrow June 17 with high sodium bath Discussed with RN Alpa June 15: Due for dialysis today Labs reviewed Discussed with RN Transfuse 1 unit of packed RBCs today for low hemoglobin of 7.1 June 5: Blood pressure well maintained Receive dialysis June 13 next hemodialysis June 15June 4: Discussed with RN in ICU Patient did not receive proper dialysis yesterday due to dialysis catheter malfunction Catheter to be adjusted today and dialyzed to be resumed today Continue per consultants Positive for COVID 28 June 2: Patient now intubated on mechanical ventilation Discussed with RN Alpa, today June 12 Patient received dialysis yesterday June 10 next hemodialysis June 12 Blood pressure better maintained Today's labs reviewed Continue per consultants Previously patient received dialysis last evening June 05, next dialysis June 07 which was incomplete due to patient's hypotension Will start on midodrine for blood pressure support. Meanwhile continue other pressors as needed Previously Patient is doing poorly, septic, white blood cells are rising, Hypotension somewhat improved We will keep n.p.o. , NG tube for medications, and change medication to IV as needed Patient remains full code Monitor vancomycin level Previously: Patient pulled out his femoral catheter yesterday June 03 which was reinserted by Dr. Mast Patient scheduled for dialysis again June 04, which again was not done due to dialysis nurse citing catheter malfunction Meanwhile continue management per ID, pulmonary , and psych. Meanwhile white blood cell count is rising. Patient blood pressure borderline low. Will check ABG Previously May 31 : I believe patient need dialysis treatment He however needs to competency assessment if can make decisions or not I will communicate with Dr. Mulligan Previously: Per pulmonary and ID advice Adjust blood pressure medication Renal diet Anemia work-up 2D echocardiogram refused Kidney ultrasound refused Jules catheter Urine studies Per orders Subjective ROS Limited/Unobtainable: Yes Objective Objective Last 24 Hour Vital Signs Date Time Temp Pulse Resp B/P (MAP) Pulse Ox O2 Delivery O2 Flow Rate FiO2 08/13/19 12:00 98.5 118 18 113/69 (84) 100 08/13/19 12:00 30 08/13/19 12:00 Mechanical Ventilator Mechanical Ventilator 08/13/19 11:59 121 31 30 08/13/19 11:41 121 08/13/19 08:00 99.5 112 18 115/77 (90) 100 08/13/19 08:00 Mechanical Ventilator Mechanical Ventilator 08/13/19 08:00 114 08/13/19 08:00 30 08/13/19 07:30 100 08/13/19 07:24 110 26 30 08/13/19 04:00 98.8 120 18 118/75 (89) 100 08/13/19 04:00 Mechanical Ventilator Mechanical Ventilator 08/13/19 04:00 30 08/13/19 03:30 118 08/13/19 02:53 121 26 30 08/13/19 00:00 99.1 120 28 120/67 (84) 99 08/13/19 00:00 Mechanical Ventilator Mechanical Ventilator 08/12/19 23:36 123 08/12/19 23:30 87 27 30 08/12/19 20:00 99.4 119 28 108/73 (85) 98 08/12/19 20:00 Mechanical Ventilator Mechanical Ventilator 08/12/19 20:00 30 08/12/19 19:30 125 29 30 08/12/19 19:25 128 08/12/19 16:00 Mechanical Ventilator Mechanical Ventilator 08/12/19 16:00 116 08/12/19 16:00 98.2 117 28 114/71 (85) 100 08/12/19 16:00 30 Intake and Output 08/12/19 08/13/19 19:00 07:00 Intake Total 570 ml 630 ml Output Total 1400 ml 200 ml Balance -830 ml 430 ml Free Water 90 ml 80 ml IV Total 110 ml Tube Feeding 480 ml 440 ml Stool Total 400 ml 200 ml Hemodialysis UF 1000 ml # Bowel Movements 1 No can panel done today Laboratory Tests 08/12/19 18:29: POC Whole Blood Glucose 246H 08/12/19 23:12: POC Whole Blood Glucose 232H 08/13/19 06:07: POC Whole Blood Glucose [Pending] 08/13/19 11:38: POC Whole Blood Glucose [Pending] Height (Feet): 6 Height (Inches): 1.00 Weight (Pounds): 172 General Appearance: no apparent distress EENT: other - Trach and vent Cardiovascular: tachycardia Respiratory/Chest: decreased breath sounds Abdomen: other - PEG in place Objective No change Mic Cole MD Aug 13, 2019 13:55
--- NOTE | 2019-08-13 14:26 | General Progress Note ---
Assessment/Plan Problem List: (1) HTN (hypertension) ICD Codes: I10 - Essential (primary) hypertension SNOMED: 31644855 (2) CASSANDRA (acute kidney injury) ICD Codes: N17.9 - Acute kidney failure, unspecified SNOMED: 2598983, 61237777 (3) Anemia in chronic kidney disease (CKD) ICD Codes: N18.9 - Chronic kidney disease, unspecified; D63.1 - Anemia in chronic kidney disease SNOMED: 052102155 (4) Renal failure ICD Codes: N19 - Unspecified kidney failure SNOMED: 48203499 (5) Respiratory failure requiring intubation ICD Codes: J96.90 - Respiratory failure, unspecified, unspecified whether with hypoxia or hypercapnia; A41.89 - Other specified sepsis SNOMED: 522103079, 994560022 (6) Pneumonia due to COVID-19 virus ICD Codes: U07.1 - COVID-19; J12.89 - Other viral pneumonia SNOMED: 123721897, 225924849 (7) Sepsis due to severe acute respiratory syndrome coronavirus 2 (SARS-CoV-2) ICD Codes: U07.1 - COVID-19; A41.89 - Other specified sepsis SNOMED: 057786163, 001815254 Status: progressing, unchanged, deteriorating Assessment/Plan: mild leukocytosis fungemia and bacterial sepsis blood cx positive h/o covid afebrile needs placement [ sepsis trach and peg diaylsis per renal Subjective ROS Limited/Unobtainable: Yes Allergies: Coded Allergies: No Known Allergies (Unverified , 05/28/19) Objective Last 24 Hour Vital Signs Date Time Temp Pulse Resp B/P (MAP) Pulse Ox O2 Delivery O2 Flow Rate FiO2 08/13/19 12:00 98.5 118 18 113/69 (84) 100 08/13/19 12:00 30 08/13/19 12:00 Mechanical Ventilator Mechanical Ventilator 08/13/19 11:59 121 31 30 08/13/19 11:41 121 08/13/19 08:00 99.5 112 18 115/77 (90) 100 08/13/19 08:00 Mechanical Ventilator Mechanical Ventilator 08/13/19 08:00 114 08/13/19 08:00 30 08/13/19 07:30 100 08/13/19 07:24 110 26 30 08/13/19 04:00 98.8 120 18 118/75 (89) 100 08/13/19 04:00 Mechanical Ventilator Mechanical Ventilator 08/13/19 04:00 30 08/13/19 03:30 118 08/13/19 02:53 121 26 30 08/13/19 00:00 99.1 120 28 120/67 (84) 99 08/13/19 00:00 Mechanical Ventilator Mechanical Ventilator 08/12/19 23:36 123 08/12/19 23:30 87 27 30 08/12/19 20:00 99.4 119 28 108/73 (85) 98 08/12/19 20:00 Mechanical Ventilator Mechanical Ventilator 08/12/19 20:00 30 08/12/19 19:30 125 29 30 08/12/19 19:25 128 08/12/19 16:00 Mechanical Ventilator Mechanical Ventilator 08/12/19 16:00 116 08/12/19 16:00 98.2 117 28 114/71 (85) 100 08/12/19 16:00 30 Intake and Output 08/12/19 08/13/19 19:00 07:00 Intake Total 570 ml 630 ml Output Total 1400 ml 200 ml Balance -830 ml 430 ml Free Water 90 ml 80 ml IV Total 110 ml Tube Feeding 480 ml 440 ml Stool Total 400 ml 200 ml Hemodialysis UF 1000 ml # Bowel Movements 1 Laboratory Tests 08/12/19 18:29: POC Whole Blood Glucose 246H 08/12/19 23:12: POC Whole Blood Glucose 232H 08/13/19 06:07: POC Whole Blood Glucose [Pending] 08/13/19 11:38: POC Whole Blood Glucose [Pending] Height (Feet): 6 Height (Inches): 1.00 Weight (Pounds): 172 Karishma Mulligan MD Aug 13, 2019 14:26
--- NOTE | 2019-08-13 14:34 | Surgery Progress Note ---
Surgery Progress Note Subjective Procedure Performed Left internal jugular temporary hemodialysis catheter removal Additional Comments fevers improved wbc 12k receiving HD Objective Last 24 Hour Vital Signs Date Time Temp Pulse Resp B/P (MAP) Pulse Ox O2 Delivery O2 Flow Rate FiO2 08/13/19 12:00 98.5 118 18 113/69 (84) 100 08/13/19 12:00 30 08/13/19 12:00 Mechanical Ventilator Mechanical Ventilator 08/13/19 11:59 121 31 30 08/13/19 11:41 121 08/13/19 08:00 99.5 112 18 115/77 (90) 100 08/13/19 08:00 Mechanical Ventilator Mechanical Ventilator 08/13/19 08:00 114 08/13/19 08:00 30 08/13/19 07:30 100 08/13/19 07:24 110 26 30 08/13/19 04:00 98.8 120 18 118/75 (89) 100 08/13/19 04:00 Mechanical Ventilator Mechanical Ventilator 08/13/19 04:00 30 08/13/19 03:30 118 08/13/19 02:53 121 26 30 08/13/19 00:00 99.1 120 28 120/67 (84) 99 08/13/19 00:00 Mechanical Ventilator Mechanical Ventilator 08/12/19 23:36 123 08/12/19 23:30 87 27 30 08/12/19 20:00 99.4 119 28 108/73 (85) 98 08/12/19 20:00 Mechanical Ventilator Mechanical Ventilator 08/12/19 20:00 30 08/12/19 19:30 125 29 30 08/12/19 19:25 128 08/12/19 16:00 Mechanical Ventilator Mechanical Ventilator 08/12/19 16:00 116 08/12/19 16:00 98.2 117 28 114/71 (85) 100 08/12/19 16:00 30 I&O Intake and Output 08/12/19 08/13/19 19:00 07:00 Intake Total 570 ml 630 ml Output Total 1400 ml 200 ml Balance -830 ml 430 ml Free Water 90 ml 80 ml IV Total 110 ml Tube Feeding 480 ml 440 ml Stool Total 400 ml 200 ml Hemodialysis UF 1000 ml # Bowel Movements 1 Dressing: other Wound: other Drains: other Cardiovascular: RSR Respiratory: decreased breath sounds Abdomen: soft, non-tender, present bowel sounds Extremities: no tenderness, no cyanosis Laboratory Tests Test 08/12/19 18:29 08/12/19 23:12 08/13/19 06:07 08/13/19 11:38 POC Whole Blood Glucose 246 MG/DL (74-106) H 232 MG/DL (74-106) H Pending Pending Plan Problems: (1) Suspected COVID-19 virus infection (2) HTN (hypertension) (3) CASSANDRA (acute kidney injury) Assessment & Plan: Needs urgent HD needs access patient okay and consented see note will follow with recs new line placed discussed with team and nephrology HD line functional when checked has TPA now please use appropriately Cathflo used again this flow during dialysis on 430 was low. Will monitor may need line change 06/13 plan for HD as per renal may need to take fluid off with HD edema anasarca dressings saturated and changed will monitor cont with HD IJ left line placed for HD given extent of prior line in place. leukocytosis blood cx negative may need to change out line new line okay HD going well Continue HD as tolerated May need pressors for HD as needed (4) Anemia in chronic kidney disease (CKD) (5) Anemia (6) Renal failure (7) Suspected COVID-19 virus infection Assessment & Plan: Pt deconditioned and despite all skin preventions Pt noted to have developed several pressure injuries. . Stable dry eschar noted to clefts of R and L ears. No erythema noted . DTPI noted to L trochanter. Base of injury is maroon in colour with marginal erythema along borders. Partially opened DTPI Sacrum, R and L Buttocks. Base of wound is maroon with two small open wounds L sacrum and L buttocks. Pt has an APM/MOMO Mattress overlay and is being positioned with pillows as per tolerance and within protocols. worsening despite medical efforts will cont to provide therapy Tx.Plan: Apply Cavilon Skin Barrier to both ears Daily and prn. Apply Moisture Barrier Paste to Sacrum,R and L Buttocks. Cover with Optifoam drsgs. Change every 3 days and PRN. Apply Cavilon Skin Barrier to R and L trochanter. Cover each site with Optifoam drsgs.Change every 7 days and PRN. Apply Cavilon Skin Barrier to both heels. Cover each heel with Optifoam drsg. Change every 7 days and prn. Off-load heels with pillow. Reposition at least every 2hours or as tolerated. APM/MOMO Mattress overlay. (8) COVID-19 Assessment & Plan: COVID + c diff negative febrile leukocytosis renal insufficiency see above cont resp care Rx as per ID worsening on vent support now cxr noted on pressors prognosis guarded repeat covid ++ weaning vent and pressors off slowly showing improvement slowly recovering will need trach as unable to wean vent safely [facility] obtained s/p trach pending peg worsening on levo max (9) Sepsis Assessment & Plan: worsening leukocytosis febrile on pressors discussed with ID. lines evaluated and clean. he is septic on pressors and needs central access in difficult venous access patient blood cultures negative will monitor temp HD cath out now with permacath left tlc still subclavian needed line c/d/i line negative c diff negative wbc resolved improved d/c planning febrile leukocytosis hold d/c infectious work up in place yeast in cultures fevers persistent fungemia abx as per ID Yaniv Mast Aug 13, 2019 14:34
[2019-08-13 15:25] LABS: BASOPHILS % (AUTO) 0.8 % (0.0-2.0); EOSINOPHILS % (AUTO) 2.8 % (0.0-3.0); HEMATOCRIT 30.6 % (42.0-52.0); HEMOGLOBIN 9.6 G/DL (14.2-18.0); LYMPHOCYTES % (AUTO) 13.4 % (20.0-45.0); MEAN CORPUSCULAR VOLUME 93 FL (80-99); MONOCYTES % (AUTO) 3.7 % (1.0-10.0); NEUTROPHILS % (AUTO) 79.3 % (45.0-75.0); PLATELET COUNT 327 K/UL (150-450); RED BLOOD COUNT 3.31 M/UL (4.70-6.10); RED CELL DISTRIBUTION WIDTH 18.6 % (11.6-14.8); WHITE BLOOD COUNT 17.1 K/UL (4.8-10.8)
[2019-08-13 16:00] VITALS: BP 108/84
[2019-08-13 19:47] LABS: ALANINE AMINOTRANSFERASE 17 U/L (12-78); ALBUMIN 3.8 G/DL (3.4-5.0); ALBUMIN/GLOBULIN RATIO 0.6 (1.0-2.7); ALKALINE PHOSPHATASE 133 U/L (46-116); ANION GAP 15 mmol/L (5-15); ASPARTATE AMINO TRANSFERASE 20 U/L (15-37); BILIRUBIN,TOTAL 0.4 MG/DL (0.2-1.0); BLOOD UREA NITROGEN 37 mg/dL (7-18); CALCIUM 9.5 MG/DL (8.5-10.1); CARBON DIOXIDE 29 MMOL/L (21-32); CHLORIDE 98 MMOL/L (98-107); CREATININE 4.4 MG/DL (0.55-1.30); POTASSIUM 3.3 MMOL/L (3.5-5.1); SODIUM 142 MMOL/L (136-145)
[2019-08-13 20:00] VITALS: BP 112/66
[2019-08-13] MEDS: Dyna-Hex 2% Top Sol 2oz TOPIC SCH (20:55)
[2019-08-13] MEDS: Metoprolol Tartrate 12.5mg TAB NG SCH (20:56)
[2019-08-13] MEDS: Epoetin Alfa-EPBX(ESRD on dialysis)10,000 unit/ml vial SUBQ SCH (21:04)
[2019-08-14] VITALS: BP 105/68
[2019-08-14 04:00] VITALS: BP 129/84
[2019-08-14 05:44] LABS: BASOPHILS % (AUTO) 0.7 % (0.0-2.0); EOSINOPHILS % (AUTO) 2.1 % (0.0-3.0); HEMATOCRIT 32.8 % (42.0-52.0); HEMOGLOBIN 9.9 G/DL (14.2-18.0); LYMPHOCYTES % (AUTO) 14.1 % (20.0-45.0); MEAN CORPUSCULAR VOLUME 95 FL (80-99); MONOCYTES % (AUTO) 6.4 % (1.0-10.0); NEUTROPHILS % (AUTO) 76.8 % (45.0-75.0); PLATELET COUNT 346 K/UL (150-450); RED BLOOD COUNT 3.46 M/UL (4.70-6.10); RED CELL DISTRIBUTION WIDTH 17.6 % (11.6-14.8); WHITE BLOOD COUNT 16.5 K/UL (4.8-10.8)
[2019-08-14] MEDS: Metoclopramide 10mg/2ml Inj IVP SCH ×3 (06:06→21:02)
[2019-08-14] MEDS: NovoLOG Insulin Flexpen SUBQ SCH ×4 (06:07→23:10)
[2019-08-14 06:26] LABS: ALANINE AMINOTRANSFERASE 13 U/L (12-78); ALBUMIN 3.7 G/DL (3.4-5.0); ALBUMIN/GLOBULIN RATIO 0.6 (1.0-2.7); ALKALINE PHOSPHATASE 138 U/L (46-116); ANION GAP 17 mmol/L (5-15); ASPARTATE AMINO TRANSFERASE 21 U/L (15-37); BILIRUBIN,TOTAL 0.4 MG/DL (0.2-1.0); BLOOD UREA NITROGEN 50 mg/dL (7-18); CALCIUM 9.4 MG/DL (8.5-10.1); CARBON DIOXIDE 29 MMOL/L (21-32); CHLORIDE 98 MMOL/L (98-107); CREATININE 5.1 MG/DL (0.55-1.30); PHOSPHORUS 2.1 MG/DL (2.5-4.9); POTASSIUM 3.3 MMOL/L (3.5-5.1); SODIUM 144 MMOL/L (136-145)
[2019-08-14] MEDS ORDERED: Sodium Chloride for KCL Premix x 2hrs IV SCH (07:30)
[2019-08-14 08:00] VITALS: BP 116/55
[2019-08-14] MEDS: Fluconazole 100mg tab NG SCH (08:14)
[2019-08-14] MEDS: Metoprolol Tartrate 12.5mg TAB NG SCH (08:15)
[2019-08-14] MEDS: Pantoprazole Inj IVP SCH (08:16)
[2019-08-14] MEDS: Enoxaparin 30mg Inj SUBQ SCH (08:18)
--- NOTE | 2019-08-14 08:59 | Pulmonolgy Critical Care Note ---
Critical Care - Asmt/Plan Assessment/Plan: Pulmonary CCM Progress Note HPI: Patient is a 68 year old man, [facility] resident, admitted c/o shortness of breath, cough, noted to have Covid 19 Pneumonia, Respiratory Failure Remains on Ventilator, CXR infiltrates stable 7/2 Anemia CKD on HD - on Mitodrine, not tolerating weaning, will need eventual placement, second consecutive repeat COVID19 test negative Preserved EF FIO2 30%, P5, adequate O2 sats, remains on ACVC, s/p Tracheostomy previously, sp PEG Fevers today, line removed On AB per ID for coagulase negative staph MRSA sputum Reviewed earlier on 08/13/2019 Past Medical History: COPD, CKD, Hypertension, Anemia Allergies: No Known Allergies Improving Pulmonary Status on HD Physical Exam Vital Signs Noted Stable on ventilator Chronically ill appearing Deferred Covid19 Impression: COVID-19 virus infection Pneumonia Respiratory failure on ventilator, wean as tolerated once off pressors CKD - on HD Hypotension on pressors previously Cardiomegaly Leukocytosis Elevated AST COPD Chronic Kidney Disease - HD H/o Hypertension Worsening anemia sepsis sinus tachycardia Plan: trach care as is Antibiotics per ID HD per renal monitor vitals AC -joseph as tolerated anxiolytics if needed 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 if needed; Monitor lab data nutrition feeds Hemodialysis per Renal impression, plan, and exam edited and reviewed in detail care discussed with RN Laboratory Tests Noted: CXR: Hypoventilatory exam, interstitial changes, cardiomegaly, improving infiltrates Subjective ROS Limited/Unobtainable: No Constitutional: Denies: fever Respiratory: Reports: dry cough, shortness of breath Gastrointestinal/Abdominal: Reports: diarrhea, other - colace was stopped Psychiatric: Reports: other - refuses labs Allergies: Coded Allergies: No Known Allergies (Unverified , 05/28/19) All Systems: reviewed and negative except above Labs noted Critical Care - Objective Last 24 Hour Vital Signs Date Time Temp Pulse Resp B/P (MAP) Pulse Ox O2 Delivery O2 Flow Rate FiO2 08/14/19 08:50 115 08/14/19 08:22 100 08/14/19 08:15 110 116/55 08/14/19 08:00 30 08/14/19 08:00 Mechanical Ventilator Mechanical Ventilator 08/14/19 08:00 98.2 110 26 116/55 (75) 100 08/14/19 07:28 106 28 30 08/14/19 04:00 30 08/14/19 04:00 Mechanical Ventilator Mechanical Ventilator 08/14/19 04:00 99.0 77 18 129/84 (99) 100 08/14/19 04:00 110 08/14/19 02:55 91 26 30 08/14/19 00:00 97.6 113 18 105/68 (80) 100 08/14/19 00:00 Mechanical Ventilator Mechanical Ventilator 08/14/19 00:00 115 08/13/19 22:47 110 26 30 08/13/19 20:56 116 105/69 08/13/19 20:00 Mechanical Ventilator Mechanical Ventilator 08/13/19 20:00 30 08/13/19 20:00 99.2 105 18 112/66 (81) 100 08/13/19 19:30 109 30 30 08/13/19 19:25 126 08/13/19 16:00 Mechanical Ventilator Mechanical Ventilator 08/13/19 16:00 98.6 118 18 108/84 (92) 100 08/13/19 16:00 30 08/13/19 16:00 123 08/13/19 14:52 85 30 30 08/13/19 12:00 98.5 118 18 113/69 (84) 100 08/13/19 12:00 30 08/13/19 12:00 Mechanical Ventilator Mechanical Ventilator 08/13/19 11:59 121 31 30 08/13/19 11:41 121 Accucheck: 165 Critical Care - Subjective ROS Limited/Unobtainable: Yes Condition: stable FI02: 30 Vent Support Breath Rate: 26 Vent Support Mode: AC Vent Tidal Volume: 500 Sputum Amount: Small PEEP: 5.0 PIP: 40 Tube Feeding Amount: 40 I&O: Intake and Output 08/13/19 08/14/19 19:00 07:00 Intake Total 550 ml 580 ml Output Total 1100 ml 400 ml Balance -550 ml 180 ml Free Water 70 ml 100 ml Tube Feeding 480 ml 480 ml Stool Total 100 ml 400 ml Hemodialysis UF 1000 ml ET-Tube: 7.5 ET Position: 24 Arturo Mckeon MD Aug 14, 2019 08:58
--- NOTE | 2019-08-14 10:19 | Nephrology Progress Note ---
Assessment/Plan Problem List: (1) CASSANDRA (acute kidney injury) (2) Anemia in chronic kidney disease (CKD) (3) HTN (hypertension) (4) COVID-19 Assessment Acute renal failure most likely superimposed on chronic kidney disease Suspected COVID-19 virus infection Possible Pneumonia, lymphopenia, elevated AST Cardiomegaly, possible CHF COPD Hypertension Anemia, most likely related to chronic kidney disease Plan August 13: Lab reviewed. Last dialysis yesterday. Next dialysis August 15. Potassium and phosphorus supplement given. Continue per consultants. August 12: No can panel done today. Due for dialysis today. Continue per consultants. August 11: Patient labs reviewed. Will order dialysis tomorrow. Continue per consultants. August 10: Patient was dialyzed yesterday. Today's labs checked. Stable from renal standpoint to view August 09: Patient scheduled for hemodialysis today. Will check labs tomorrow. August 08: Lab reviewed. Hemodialysis scheduled for tomorrow. August 07: Dialyzed yesterday. No labs drawn today. Will check labs tomorrow. Continue per consultants. August 06: Patient on dialysis now. Discussed with dialysis nurse. Slight catheter malfunction persist. August 05: Labs reviewed. Dialysis scheduled for tomorrow. Continue per consultants. August 04: No labs done today. Dialyzed yesterday. Check labs tomorrow. Continue per consultants. August 03: Lab reviewed. Due for dialysis today. White blood cell 17,500. August 02: Lab reviewed. Low phosphorus replaced. Hemodialysis ordered for tomorrow. White blood cells over 18,000. August 01: Labs reviewed. Potassium replacement ordered. Remains full code on ventilator via trach. Continue per consultants. July 31: Dialyzed yesterday. No can panel today. Remains full code. Remains on ventilator. Being fed through PEG. Continue per consultants. July 30: Patient due for dialysis today. Labs are reviewed. Remains full code. Status post trach to ventilator. Status post PEG. July 29: Patient dialyzed yesterday. Due for dialysis tomorrow. Remains in ICU. Full code. Status post trach tube to ventilator. Status post PEG. July 28: Due for dialysis today. Labs reviewed. Full code. Patient trached and vented. July 27: Last COVID test negative. COVID test will be repeated tomorrow. Will order dialysis tomorrow. Remains full code. Medication list and labs reviewed. July 26: No labs done today. Dialysis done yesterday. Will check lab tomorrow. Dialysis as needed. July 25: Lab reviewed. Dialysis today. Discussed with RN. July 24: Lab reviewed. Do dialysis tomorrow. Discussed with RN. July 23: Lab reviewed. Dialyzed yesterday. Discussed with RN. Remains full code. Next dialysis July 25. Will check labs tomorrow. July 22: Labs reviewed. Due for dialysis today. Discussed with RN. Watch borderline low blood pressure. Discussed with dialysis nurse. July 21: Today's lab reviewed. Will arrange for dialysis tomorrow. Discussed with RN. Aim to keep the blood pressure above 100 systolic. Continue per consultants. July 20: Patient was dialyzed yesterday. Could not ultrafiltrate much due to low blood pressure. Discussed with SHANIQUE Dick today. No labs drawn today. Continue per consultants. July 19: Due for dialysis today. Discussed with SHANIQUE Dick. Continue per consultants. July 18: Dialyzed July 16. Will order dialysis tomorrow July 19. Continues to be on ventilator through trach. No labs done today. Continue per consultants. July 17: Dialyzed yesterday. Stable from renal standpoint of view. Remains full code. Status post trach on vent. Status post PEG. Continue per consultants. July 16: Dialysis today. Will resume Midodrin to prevent hypotension. Patient remains full code. July 15: Dialyzed yesterday, due for dialysis tomorrow. Labs and medication list reviewed. Continue per consultants. Patient remains full code. COVID-19 detected again. July 14: Patient currently on dialysis. This is continuation of dialysis from yesterday as yesterday's dialysis was cut short due to catheter malfunction. Labs and medication reviewed. Continue per consultants. July 13: Patient currently on hemodialysis. The dialysis catheter which is a intrajugular Kamlesh has poor flow. Will try TPA. Continue per consultants. July 12: Due for PEG today. Due for dialysis tomorrow. Continue per consultants. Discussed with RN. July 11: Plan for dialysis today. Discussed with RN. Data reviewed. July 10: Plan for dialysis tomorrow July 11. Waiting for consent to proceed with PEG. Continue per consultants. Medication reviewed. Labs reviewed. Discussed with RN. July 09: Dialyzed yesterday. Labs reviewed. Medication reviewed. Next hemodialysis July 11. July 08: Patient has tracheostomy now. Connected to ventilator. Due for dialysis today. Continue per consultants. Discussed with SHANIQUE Romero. July 07: Patient is due for tracheostomy today. Patient was last dialyzed July 05. Will order dialysis for tomorrow. July 06: Patient is intubated on ventilator however the plan is to extubate today. Patient was dialysis yesterday July 05. The dialysis time was cut short due to patient's respiratory distress. Only 1 L was removed during dialysis yesterday. Today's lab reviewed. Continue per consultants. Will arrange for dialysis as needed. July 05: Patient due for dialysis today. Remains intubated. Will schedule permacath placement in a.m. blood cultures on July 04 are negative. July 04: Patient was dialyzed yesterday. Due for dialysis tomorrow. Continues to be intubated. After tomorrow's dialysis will order a permacath. July 03: Dialysis is about to be started now Continues to be intubated Will plan to remove the femoral dialysis catheter and exchanged for a new temporary catheter per ID recommendation We will check surveillance blood culture tomorrow July 02: Patient was dialyzed yesterday and due for dialysis tomorrow Stable from renal standpoint W on dialysis Continue per consultants, weaning....... etc. July 01: Dialysis today Other status unchanged June 30: Due for dialysis tomorrow Remains intubated on ventilator Labs and medication reviewed Discussed with RN Stable from renal standpoint of view June 29: Dialyzed yesterday Due for dialysis tomorrow Stable from renal standpoint to view Keeps failing weaning process June 28: Patient due for dialysis today Stable from renal standpoint to view Continue per consultants June 27: Labs reviewed Due due for dialysis June 28 Discussed with SHANIQUE Dick Continue per consultants Remains intubated on ventilator June 26 Labs reviewed Dialyzed yesterday Started on weaning today Continue to monitor renal parameters June 25: On dialysis now Potassium supplement implemented Continue per consultants Next dialysis June 27June 15: Status unchanged Dialyzed yesterday will dialyze again tomorrow Potassium supplements given Discussed with RN June 23: Due dialysis today Status: Remains intubated on ventilator June 22: Status unchanged Dialyzed yesterday and duefordialysistomorrow Serum sodium stable today June 21 Remains intubated on ventilator Due dialysis today Emphasized high sodium bath for dialysis June 20: Remains intubated on ventilator Dialyzed June 19 next dialysis June 21 Serum sodium 128, will give 250 cc 3% saline Remains full code Discussed with RN Iron panel ordered June 19: Discussed with RN. Patient due for dialysis today. Continue pulmonary support. Remains full code. June 18: Patient dialyzed yesterday June 17 Serum sodium improved but still low Arrange for dialysis tomorrow June 19 Continue per consultants June 17: Due for dialysis today Today's lab reviewed, low serum sodium noted, Emphasized on high sodium bath to dialysis nurse Discussed with SHANIQUE Yuen June 16: Dialyzed yesterday Remains intubated Labs reviewed, serum sodium 131 Plan to dialyze tomorrow June 17 with high sodium bath Discussed with SHANIQUE Yuen June 15: Due for dialysis today Labs reviewed Discussed with RN Transfuse 1 unit of packed RBCs today for low hemoglobin of 7.1 June 5: Blood pressure well maintained Receive dialysis June 13 next hemodialysis June 15June 4: Discussed with RN in ICU Patient did not receive proper dialysis yesterday due to dialysis catheter malfunction Catheter to be adjusted today and dialyzed to be resumed today Continue per consultants Positive for COVID 28 June 2: Patient now intubated on mechanical ventilation Discussed with SHANIQUE Yuen, today June 12 Patient received dialysis yesterday June 10 next hemodialysis June 12 Blood pressure better maintained Today's labs reviewed Continue per consultants Previously patient received dialysis last evening June 05, next dialysis June 07 which was incomplete due to patient's hypotension Will start on midodrine for blood pressure support. Meanwhile continue other pressors as needed Previously Patient is doing poorly, septic, white blood cells are rising, Hypotension somewhat improved We will keep n.p.o. , NG tube for medications, and change medication to IV as needed Patient remains full code Monitor vancomycin level Previously: Patient pulled out his femoral catheter yesterday June 03 which was reinserted by Dr. aMst Patient scheduled for dialysis again June 04, which again was not done due to dialysis nurse citing catheter malfunction Meanwhile continue management per ID, pulmonary , and psych. Meanwhile white blood cell count is rising. Patient blood pressure borderline low. Will check ABG Previously May 31 : I believe patient need dialysis treatment He however needs to competency assessment if can make decisions or not I will communicate with Dr. Mulligan Previously: Per pulmonary and ID advice Adjust blood pressure medication Renal diet Anemia work-up 2D echocardiogram refused Kidney ultrasound refused Jules catheter Urine studies Per orders Subjective ROS Limited/Unobtainable: Yes Objective Objective Last 24 Hour Vital Signs Date Time Temp Pulse Resp B/P (MAP) Pulse Ox O2 Delivery O2 Flow Rate FiO2 08/14/19 08:50 115 08/14/19 08:22 100 08/14/19 08:15 110 116/55 08/14/19 08:00 30 08/14/19 08:00 Mechanical Ventilator Mechanical Ventilator 08/14/19 08:00 98.2 110 26 116/55 (75) 100 08/14/19 07:28 106 28 30 08/14/19 04:00 30 08/14/19 04:00 Mechanical Ventilator Mechanical Ventilator 08/14/19 04:00 99.0 77 18 129/84 (99) 100 08/14/19 04:00 110 08/14/19 02:55 91 26 30 08/14/19 00:00 97.6 113 18 105/68 (80) 100 08/14/19 00:00 Mechanical Ventilator Mechanical Ventilator 08/14/19 00:00 115 08/13/19 22:47 110 26 30 08/13/19 20:56 116 105/69 08/13/19 20:00 Mechanical Ventilator Mechanical Ventilator 08/13/19 20:00 30 08/13/19 20:00 99.2 105 18 112/66 (81) 100 08/13/19 19:30 109 30 30 08/13/19 19:25 126 08/13/19 16:00 Mechanical Ventilator Mechanical Ventilator 08/13/19 16:00 98.6 118 18 108/84 (92) 100 08/13/19 16:00 30 08/13/19 16:00 123 08/13/19 14:52 85 30 30 08/13/19 12:00 98.5 118 18 113/69 (84) 100 08/13/19 12:00 30 08/13/19 12:00 Mechanical Ventilator Mechanical Ventilator 08/13/19 11:59 121 31 30 08/13/19 11:41 121 Intake and Output 08/13/19 08/14/19 19:00 07:00 Intake Total 550 ml 580 ml Output Total 1100 ml 400 ml Balance -550 ml 180 ml Free Water 70 ml 100 ml Tube Feeding 480 ml 480 ml Stool Total 100 ml 400 ml Hemodialysis UF 1000 ml Laboratory Tests 08/13/19 11:38: POC Whole Blood Glucose [Pending] 08/13/19 16:40: POC Whole Blood Glucose 299H 08/13/19 19:20: Sodium Level 142, Potassium Level 3.3L, Chloride Level 98, Carbon Dioxide Level 29, Anion Gap 15, Blood Urea Nitrogen 37H, Creatinine 4.4H, Estimat Glomerular Filtration Rate 13.5, Glucose Level 238H, Calcium Level 9.5, Total Bilirubin 0.4 , Aspartate Amino Transf (AST/SGOT) 20, Alanine Aminotransferase (ALT/SGPT) 17, Alkaline Phosphatase 133H, Total Protein 10.2H, Albumin 3.8, Globulin 6.4, Albumin/Globulin Ratio 0.6L 08/13/19 23:30: POC Whole Blood Glucose 256H 08/14/19 03:35: White Blood Count 16.5H, Red Blood Count 3.46L, Hemoglobin 9.9L, Hematocrit 32.8L, Mean Corpuscular Volume 95, Mean Corpuscular Hemoglobin 28.6, Mean Corpuscular Hemoglobin Concent 30.2L, Red Cell Distribution Width 17.6H, Platelet Count 346, Mean Platelet Volume 7.8, Neutrophils (%) (Auto) 76.8H, Lymphocytes (%) (Auto) 14.1L, Monocytes (%) (Auto) 6.4, Eosinophils (%) (Auto) 2.1, Basophils (%) (Auto) 0.7, Sodium Level 144, Potassium Level 3.3L, Chloride Level 98, Carbon Dioxide Level 29, Anion Gap 17H, Blood Urea Nitrogen 50H, Creatinine 5.1H, Estimat Glomerular Filtration Rate 11.4, Glucose Level 260H, Calcium Level 9.4, Phosphorus Level 2.1L, Magnesium Level 2.2, Total Bilirubin 0.4, Aspartate Amino Transf (AST/SGOT) 21, Alanine Aminotransferase (ALT/SGPT) 13, Alkaline Phosphatase 138H, C-Reactive Protein, Quantitative 6.7H, Pro-B- Type Natriuretic Peptide 8970H, Total Protein 10.0H, Albumin 3.7, Globulin 6.3, Albumin/Globulin Ratio 0.6L 08/14/19 05:46: POC Whole Blood Glucose 162H Height (Feet): 6 Height (Inches): 1.00 Weight (Pounds): 171 General Appearance: no apparent distress EENT: other - Trach and vent Cardiovascular: tachycardia Respiratory/Chest: decreased breath sounds Abdomen: other - PEG Objective No change Mic Cole MD Aug 14, 2019 10:19
[2019-08-14 11:42] VITALS: BP 114/48
[2019-08-14] MEDS: Acetaminophen 650mg/20.3ml GT PRN (11:44)
--- NOTE | 2019-08-14 15:17 | Cardiac Electrophysiology PN ---
Assessment/Plan Assessment/Plan 1. NSTEMI type 2. Low level and flat due to renal failure. On Aspirin. EF 60%.Increase Lopressor to 25 bid 2. S/P Septic shock. On Abx. 3. ESRD, on HD per Dr. Cole. S/P PermCath placement by IR 4. VDRF due to COVID pneumonia. S/P Tracheostomy 07/08/19. 5. Atrial fib with RVR. Increrase Lopressor to 25 bid 6. Dysphagia, S/P PEG 07/13/19 7. COPD. 8. Anemia. JHONY RN Subjective Subjective In SDU on the vent via trach. Off pressors. Fio2 30% Covid positive x 10. Now has 2 negative Covid. Had atrial fib with RVR 130s Had HD yesterday Objective Last 24 Hour Vital Signs Date Time Temp Pulse Resp B/P (MAP) Pulse Ox O2 Delivery O2 Flow Rate FiO2 08/14/19 12:14 99.0 08/14/19 12:00 112 08/14/19 12:00 30 08/14/19 12:00 Mechanical Ventilator Mechanical Ventilator 08/14/19 11:42 100.8 100 26 114/48 (70) 100 08/14/19 11:17 98 26 30 08/14/19 08:50 115 08/14/19 08:22 100 08/14/19 08:15 110 116/55 08/14/19 08:00 30 08/14/19 08:00 Mechanical Ventilator Mechanical Ventilator 08/14/19 08:00 98.2 110 26 116/55 (75) 100 08/14/19 07:28 106 28 30 08/14/19 04:00 30 08/14/19 04:00 Mechanical Ventilator Mechanical Ventilator 08/14/19 04:00 99.0 77 18 129/84 (99) 100 08/14/19 04:00 110 08/14/19 02:55 91 26 30 08/14/19 00:00 97.6 113 18 105/68 (80) 100 08/14/19 00:00 Mechanical Ventilator Mechanical Ventilator 08/14/19 00:00 115 08/13/19 22:47 110 26 30 08/13/19 20:56 116 105/69 08/13/19 20:00 Mechanical Ventilator Mechanical Ventilator 08/13/19 20:00 30 08/13/19 20:00 99.2 105 18 112/66 (81) 100 08/13/19 19:30 109 30 30 08/13/19 19:25 126 08/13/19 16:00 Mechanical Ventilator Mechanical Ventilator 08/13/19 16:00 98.6 118 18 108/84 (92) 100 08/13/19 16:00 30 08/13/19 16:00 123 Intake and Output 08/13/19 08/14/19 19:00 07:00 Intake Total 550 ml 580 ml Output Total 1100 ml 400 ml Balance -550 ml 180 ml Free Water 70 ml 100 ml Tube Feeding 480 ml 480 ml Stool Total 100 ml 400 ml Hemodialysis UF 1000 ml Laboratory Tests Test 08/13/19 16:40 08/13/19 19:20 08/13/19 23:30 08/14/19 03:35 POC Whole Blood Glucose 299 MG/DL (74-106) H 256 MG/DL (74-106) H Sodium Level 142 MMOL/L (136-145) 144 MMOL/L (136-145) Potassium Level 3.3 MMOL/L (3.5-5.1) L 3.3 MMOL/L (3.5-5.1) L Chloride Level 98 MMOL/L (98-107) 98 MMOL/L (98-107) Carbon Dioxide Level 29 MMOL/L (21-32) 29 MMOL/L (21-32) Anion Gap 15 mmol/L (5-15) 17 mmol/L (5-15) H Blood Urea Nitrogen 37 mg/dL (7-18) H 50 mg/dL (7-18) H Creatinine 4.4 MG/DL (0.55-1.30) H 5.1 MG/DL (0.55-1.30) H Estimat Glomerular Filtration Rate 13.5 mL/min (>60) 11.4 mL/min (>60) Glucose Level 238 MG/DL (74-106) H 260 MG/DL (74-106) H Calcium Level 9.5 MG/DL (8.5-10.1) 9.4 MG/DL (8.5-10.1) Total Bilirubin 0.4 MG/DL (0.2-1.0) 0.4 MG/DL (0.2-1.0) Aspartate Amino Transf (AST/SGOT) 20 U/L (15-37) 21 U/L (15-37) Alanine Aminotransferase (ALT/SGPT) 17 U/L (12-78) 13 U/L (12-78) Alkaline Phosphatase 133 U/L (46-116) H 138 U/L (46-116) H Total Protein 10.2 G/DL (6.4-8.2) H 10.0 G/DL (6.4-8.2) H Albumin 3.8 G/DL (3.4-5.0) 3.7 G/DL (3.4-5.0) Globulin 6.4 g/dL 6.3 g/dL Albumin/Globulin Ratio 0.6 (1.0-2.7) L 0.6 (1.0-2.7) L White Blood Count 16.5 K/UL (4.8-10.8) H Red Blood Count 3.46 M/UL (4.70-6.10) L Hemoglobin 9.9 G/DL (14.2-18.0) L Hematocrit 32.8 % (42.0-52.0) L Mean Corpuscular Volume 95 FL (80-99) Mean Corpuscular Hemoglobin 28.6 PG (27.0-31.0) Mean Corpuscular Hemoglobin Concent 30.2 G/DL (32.0-36.0) L Red Cell Distribution Width 17.6 % (11.6-14.8) H Platelet Count 346 K/UL (150-450) Mean Platelet Volume 7.8 FL (6.5-10.1) Neutrophils (%) (Auto) 76.8 % (45.0-75.0) H Lymphocytes (%) (Auto) 14.1 % (20.0-45.0) L Monocytes (%) (Auto) 6.4 % (1.0-10.0) Eosinophils (%) (Auto) 2.1 % (0.0-3.0) Basophils (%) (Auto) 0.7 % (0.0-2.0) Phosphorus Level 2.1 MG/DL (2.5-4.9) L Magnesium Level 2.2 MG/DL (1.8-2.4) C-Reactive Protein, Quantitative 6.7 mg/dL (0.00-0.90) H Pro-B-Type Natriuretic Peptide 8970 pg/mL (0-125) H Test 08/14/19 05:46 08/14/19 11:36 POC Whole Blood Glucose 162 MG/DL (74-106) H Pending Objective HEAD AND NECK: No JVD. Tracheostomy in place. Left IJ HD catheter now in place. Right IJ PermCath in place LUNGS: Decreased breath sounds. CARDIOVASCULAR: Regular S1 and S2. Tachycardic. ABDOMEN: Soft. PEG in place EXTREMITIES: No pitting edema. Gio Baker MD Aug 14, 2019 15:17
[2019-08-14 16:00] VITALS: BP 127/70
--- NOTE | 2019-08-14 19:46 | Pulmonolgy Critical Care Note ---
Critical Care - Asmt/Plan Assessment/Plan: Pulmonary CCM Progress Note HPI: Patient is a 68 year old man, group home resident, admitted c/o shortness of breath, cough, noted to have Covid 19 Pneumonia, Respiratory Failure Remains on Ventilator, CXR infiltrates stable 7/2 Anemia CKD on HD - on Mitodrine, not tolerating weaning, will need eventual placement, second consecutive repeat COVID19 test negative Preserved EF FIO2 30%, P5, adequate O2 sats, remains on ACVC, tolerated CPAP PS 10, s/p Tracheostomy previously, sp PEG Fevers today, line removed On AB per ID for coagulase negative staph MRSA sputum Reviewed earlier Past Medical History: COPD, CKD, Hypertension, Anemia Allergies: No Known Allergies Improving Pulmonary Status on HD Physical Exam Vital Signs Noted Stable on ventilator Chronically ill appearing Deferred Covid19 Impression: COVID-19 virus infection Pneumonia Respiratory failure on ventilator, wean as tolerated once off pressors CKD - on HD Hypotension on pressors previously Cardiomegaly Leukocytosis Elevated AST COPD Chronic Kidney Disease - HD H/o Hypertension Worsening anemia sepsis sinus tachycardia Plan: trach care as is Antibiotics per ID HD per renal monitor vitals AC -joseph as tolerated anxiolytics if needed 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 if needed; Monitor lab data nutrition feeds Hemodialysis per Renal impression, plan, and exam edited and reviewed in detail care discussed with RN Laboratory Tests Noted: CXR: Hypoventilatory exam, interstitial changes, cardiomegaly, improving infiltrates Subjective ROS Limited/Unobtainable: No Constitutional: Denies: fever Respiratory: Reports: dry cough, shortness of breath Gastrointestinal/Abdominal: Reports: diarrhea, other - colace was stopped Psychiatric: Reports: other - refuses labs Allergies: Coded Allergies: No Known Allergies (Unverified , 05/28/19) All Systems: reviewed and negative except above Labs noted Critical Care - Objective Last 24 Hour Vital Signs Date Time Temp Pulse Resp B/P (MAP) Pulse Ox O2 Delivery O2 Flow Rate FiO2 08/14/19 16:05 115 08/14/19 16:00 99.3 117 26 127/70 (89) 100 08/14/19 16:00 Mechanical Ventilator Mechanical Ventilator 08/14/19 16:00 30 08/14/19 15:27 111 26 30 08/14/19 12:14 99.0 08/14/19 12:00 112 08/14/19 12:00 30 08/14/19 12:00 Mechanical Ventilator Mechanical Ventilator 08/14/19 11:42 100.8 100 26 114/48 (70) 100 08/14/19 11:17 98 26 30 08/14/19 08:50 115 08/14/19 08:22 100 08/14/19 08:15 110 116/55 08/14/19 08:00 30 08/14/19 08:00 Mechanical Ventilator Mechanical Ventilator 08/14/19 08:00 98.2 110 26 116/55 (75) 100 08/14/19 07:28 106 28 30 08/14/19 04:00 30 08/14/19 04:00 Mechanical Ventilator Mechanical Ventilator 08/14/19 04:00 99.0 77 18 129/84 (99) 100 08/14/19 04:00 110 08/14/19 02:55 91 26 30 08/14/19 00:00 97.6 113 18 105/68 (80) 100 08/14/19 00:00 Mechanical Ventilator Mechanical Ventilator 08/14/19 00:00 115 08/13/19 22:47 110 26 30 08/13/19 20:56 116 105/69 08/13/19 20:00 Mechanical Ventilator Mechanical Ventilator 08/13/19 20:00 30 08/13/19 20:00 99.2 105 18 112/66 (81) 100 Accucheck: 282 Critical Care - Subjective ROS Limited/Unobtainable: No Condition: stable FI02: 30 Vent Support Breath Rate: 26 Vent Support Mode: AC Vent Tidal Volume: 500 Sputum Amount: Small PEEP: 5.0 PIP: 33 Tube Feeding Amount: 40 I&O: Intake and Output 08/13/19 08/14/19 19:00 07:00 Intake Total 550 ml 580 ml Output Total 1100 ml 400 ml Balance -550 ml 180 ml Free Water 70 ml 100 ml Tube Feeding 480 ml 480 ml Stool Total 100 ml 400 ml Hemodialysis UF 1000 ml ET-Tube: 7.5 ET Position: 24 Arturo Mckeon MD Aug 14, 2019 19:46
[2019-08-14 20:00] VITALS: BP 116/68
[2019-08-14] MEDS: Dyna-Hex 2% Top Sol 2oz TOPIC SCH (21:01)
--- NOTE | 2019-08-14 23:41 | General Progress Note ---
Assessment/Plan Problem List: (1) HTN (hypertension) ICD Codes: I10 - Essential (primary) hypertension SNOMED: 02674308 (2) CASSANDRA (acute kidney injury) ICD Codes: N17.9 - Acute kidney failure, unspecified SNOMED: 2655658, 91691945 (3) Anemia in chronic kidney disease (CKD) ICD Codes: N18.9 - Chronic kidney disease, unspecified; D63.1 - Anemia in chronic kidney disease SNOMED: 601134810 (4) Renal failure ICD Codes: N19 - Unspecified kidney failure SNOMED: 75602742 (5) Respiratory failure requiring intubation ICD Codes: J96.90 - Respiratory failure, unspecified, unspecified whether with hypoxia or hypercapnia; A41.89 - Other specified sepsis SNOMED: 341837965, 692043568 (6) Pneumonia due to COVID-19 virus ICD Codes: U07.1 - COVID-19; J12.89 - Other viral pneumonia SNOMED: 850426485, 380199478 (7) Sepsis due to severe acute respiratory syndrome coronavirus 2 (SARS-CoV-2) ICD Codes: U07.1 - COVID-19; A41.89 - Other specified sepsis SNOMED: 122661296, 549773034 Status: progressing, unchanged, deteriorating Assessment/Plan: sepsis fungemia resp insuff afebrile no sob negatvie covid pna Subjective ROS Limited/Unobtainable: Yes Allergies: Coded Allergies: No Known Allergies (Unverified , 05/28/19) Objective Last 24 Hour Vital Signs Date Time Temp Pulse Resp B/P (MAP) Pulse Ox O2 Delivery O2 Flow Rate FiO2 08/14/19 22:16 87 26 30 08/14/19 21:01 116 116/68 08/14/19 20:00 30 08/14/19 20:00 Mechanical Ventilator Mechanical Ventilator 08/14/19 20:00 98.6 116 26 116/68 (84) 100 08/14/19 19:35 104 29 30 08/14/19 19:21 117 08/14/19 16:05 115 08/14/19 16:00 99.3 117 26 127/70 (89) 100 08/14/19 16:00 Mechanical Ventilator Mechanical Ventilator 08/14/19 16:00 30 08/14/19 15:27 111 26 30 08/14/19 12:14 99.0 08/14/19 12:00 112 08/14/19 12:00 30 08/14/19 12:00 Mechanical Ventilator Mechanical Ventilator 08/14/19 11:42 100.8 100 26 114/48 (70) 100 08/14/19 11:17 98 26 30 08/14/19 08:50 115 08/14/19 08:22 100 08/14/19 08:15 110 116/55 08/14/19 08:00 30 08/14/19 08:00 Mechanical Ventilator Mechanical Ventilator 08/14/19 08:00 98.2 110 26 116/55 (75) 100 08/14/19 07:28 106 28 30 08/14/19 04:00 30 08/14/19 04:00 Mechanical Ventilator Mechanical Ventilator 08/14/19 04:00 99.0 77 18 129/84 (99) 100 08/14/19 04:00 110 08/14/19 02:55 91 26 30 08/14/19 00:00 97.6 113 18 105/68 (80) 100 08/14/19 00:00 Mechanical Ventilator Mechanical Ventilator 08/14/19 00:00 115 Intake and Output 08/13/19 08/14/19 19:00 07:00 Intake Total 550 ml 580 ml Output Total 1100 ml 400 ml Balance -550 ml 180 ml Free Water 70 ml 100 ml Tube Feeding 480 ml 480 ml Stool Total 100 ml 400 ml Hemodialysis UF 1000 ml Laboratory Tests 08/14/19 03:35: White Blood Count 16.5H, Red Blood Count 3.46L, Hemoglobin 9.9L, Hematocrit 32.8L, Mean Corpuscular Volume 95, Mean Corpuscular Hemoglobin 28.6, Mean Corpuscular Hemoglobin Concent 30.2L, Red Cell Distribution Width 17.6H, Platelet Count 346, Mean Platelet Volume 7.8, Neutrophils (%) (Auto) 76.8H, Lymphocytes (%) (Auto) 14.1L, Monocytes (%) (Auto) 6.4, Eosinophils (%) (Auto) 2.1, Basophils (%) (Auto) 0.7, Sodium Level 144, Potassium Level 3.3L, Chloride Level 98, Carbon Dioxide Level 29, Anion Gap 17H, Blood Urea Nitrogen 50H, Creatinine 5.1H, Estimat Glomerular Filtration Rate 11.4, Glucose Level 260H, Calcium Level 9.4, Phosphorus Level 2.1L, Magnesium Level 2.2, Total Bilirubin 0.4, Aspartate Amino Transf (AST/SGOT) 21, Alanine Aminotransferase (ALT/SGPT) 13, Alkaline Phosphatase 138H, C-Reactive Protein, Quantitative 6.7H, Pro-B- Type Natriuretic Peptide 8970H, Total Protein 10.0H, Albumin 3.7, Globulin 6.3, Albumin/Globulin Ratio 0.6L 08/14/19 05:46: POC Whole Blood Glucose 162H 08/14/19 11:36: POC Whole Blood Glucose [Pending] 08/14/19 16:59: POC Whole Blood Glucose [Pending] Height (Feet): 6 Height (Inches): 1.00 Weight (Pounds): 171 Karishma Mulligan MD Aug 14, 2019 23:41
[2019-08-15] VITALS (7 sets, daily range): BP systolic 89–123; BP diastolic 52–73
[2019-08-15] MEDS: Metoclopramide 10mg/2ml Inj IVP SCH ×3 (05:03→21:49)
[2019-08-15] MEDS: NovoLOG Insulin Flexpen SUBQ SCH ×3 (05:04→17:16)
[2019-08-15] MEDS: Pantoprazole Inj IVP SCH (08:50)
[2019-08-15] MEDS: Fluconazole 100mg tab NG SCH (08:51)
[2019-08-15] MEDS: Enoxaparin 30mg Inj SUBQ SCH (08:54)
[2019-08-15] MEDS ORDERED: Vancomycin 1gm in D5W 275ml IVPB SCH (10:00)
--- NOTE | 2019-08-15 12:32 | Infectious Diseases Prog Note ---
Assessment/Plan Assessment/Plan IMPRESSION: 1. COVID19 pneumonia Positive: 05/27, 05/31 , 06/05, 06/09 ,06/17, 06/19, 06/23, 06/27, 07/03, 07/15, 07/29 Negative: 07/26, 08/04, 08/05 2. MRSA carrier. 3. Chronic kidney disease , end-stage renal disease. 4. COPD. 5. Hypertension. 6. Anemia. 7. Hypothyroidism. 8. Hyperlipidemia. 9. Major depression. 10. Leukocytosis 11. Hypotension 12. Hepatitis C 13. Hyperuricemia 14. Diarrhea, C difficile negative 15. septic shock 16.Sepsis Catheter tip yeast blood culture: Staph Coagulase negative 17. Pneumonia with Staph aureus ( MRSA) 18. Candidal sepsis 19. Diarrhea, C. difficile negative RECOMMENDATIONS: continue Fluconazole & Vancomycin Will f/u cultures Subjective ROS Limited/Unobtainable: Yes Respiratory: Reports: other - on weaning process Gastrointestinal/Abdominal: Reports: diarrhea Allergies: Coded Allergies: No Known Allergies (Unverified , 05/28/19) Objective Last 24 Hour Vital Signs Date Time Temp Pulse Resp B/P (MAP) Pulse Ox O2 Delivery O2 Flow Rate FiO2 08/15/19 09:42 104 08/15/19 08:51 103 101/73 08/15/19 08:00 30 08/15/19 08:00 98.4 102 26 108/73 (85) 100 08/15/19 07:10 103 26 30 08/15/19 04:00 99.5 99 26 100/64 (76) 100 08/15/19 04:00 30 08/15/19 04:00 Mechanical Ventilator Mechanical Ventilator 08/15/19 03:47 106 08/15/19 03:13 101 30 30 08/15/19 00:00 97.3 87 26 101/63 (76) 100 08/15/19 00:00 Mechanical Ventilator Mechanical Ventilator 08/14/19 23:59 106 08/14/19 22:16 87 26 30 08/14/19 21:01 116 116/68 08/14/19 20:00 30 08/14/19 20:00 Mechanical Ventilator Mechanical Ventilator 08/14/19 20:00 98.6 116 26 116/68 (84) 100 08/14/19 19:35 104 29 30 08/14/19 19:21 117 08/14/19 16:05 115 08/14/19 16:00 99.3 117 26 127/70 (89) 100 08/14/19 16:00 Mechanical Ventilator Mechanical Ventilator 08/14/19 16:00 30 08/14/19 15:27 111 26 30 Height (Feet): 6 Height (Inches): 1.00 Weight (Pounds): 172 HEENT: mucous membranes moist, status post trach Respiratory/Chest: lungs clear, other - on ventilator Cardiovascular: tachycardia, other - Permacath Abdomen: soft, non tender, other - GT & rectal tube Extremities: no edema Neurologic/Psychiatric: alert, responsive Microbiology Date/Time Source Procedure Growth Status 08/13/19 13:30 Blood Blood Culture - Preliminary NO GROWTH AFTER 24 HOURS Resulted 08/13/19 12:20 Blood Blood Culture - Preliminary Staphylococcus Sp Coag Neg Resulted Laboratory Tests Test 08/14/19 16:59 08/15/19 04:50 POC Whole Blood Glucose Pending 259 MG/DL (74-106) H Current Medications Medications (Trade) Dose Ordered Sig/Anthony Route PRN Reason Start Time Stop Time Status Last Admin Dose Admin Acetaminophen (Tylenol) 650 mg Q4H PRN GT Temp >100.5 08/09/19 08:30 09/08/19 08:29 08/14/19 11:44 Acetaminophen (Tylenol) 650 mg Q4H PRN NG For Pain 08/04/19 21:38 09/03/19 21:37 08/08/19 17:08 Chlorhexidine Gluconate (Michelle-Hex 2%) 1 applic DAILY@2000 TOPIC 08/05/19 20:00 09/05/19 19:59 08/14/19 21:01 Dextrose (Dextrose 50%) 25 ml Q30M PRN IV Hypoglycemia 08/04/19 22:00 09/18/19 19:29 Dextrose (Dextrose 50%) 50 ml Q30M PRN IV Hypoglycemia 08/04/19 22:00 09/18/19 19:29 Enoxaparin Sodium (Lovenox) 30 mg DAILY SUBQ 08/05/19 09:00 08/27/19 08:59 08/15/19 08:54 Epoetin Aftab (Epoetin Aftab(ESRD on dialysis)) 10,000 unit FRI-FRI-FRI SUBQ 08/11/19 21:00 11/09/19 20:59 08/13/19 21:04 Fluconazole (Diflucan) 200 mg DAILY NG 08/13/19 10:24 08/20/19 10:23 08/15/19 08:51 Haloperidol Lactate 5 mg/ Dextrose 56 ml @ 224 mls/hr Q6H PRN IVPB Agitation 08/04/19 21:38 09/18/19 21:37 Hydralazine HCl (Apresoline) 10 mg Q4H PRN IV Blood pressure over 160 systol 08/04/19 21:39 11/02/19 21:38 Insulin Aspart (NovoLOG) EVERY 6 HOURS SUBQ 08/05/19 00:00 09/19/19 00:00 08/15/19 12:17 Loperamide HCl (Imodium) 2 mg Q6H PRN NG Diarrhea 08/11/19 10:15 09/10/19 10:14 08/14/19 14:15 Metoclopramide HCl (Reglan) 5 mg Q8HR IVP 08/05/19 06:00 09/04/19 05:59 08/15/19 05:03 Metoprolol Tartrate (Lopressor) 25 mg Q12HR NG 08/14/19 21:00 11/11/19 20:59 08/15/19 08:51 Pantoprazole (Protonix) 40 mg DAILY IVP 08/05/19 09:00 08/26/19 08:59 08/15/19 08:50 Vancomycin HCl (Vanco pharmacy to dose) 1 ea DAILY PRN MISC Per rx protocol 08/15/19 08:45 09/14/19 08:44 Vancomycin HCl 1 gm/Dextrose 275 ml @ 183.708 mls/hr ONCE IVPB 08/15/19 10:00 08/20/19 09:59 08/15/19 10:31 Ted Leyva MD Aug 15, 2019 12:32
--- NOTE | 2019-08-15 13:59 | Cardiac Electrophysiology PN ---
Assessment/Plan Assessment/Plan 1. NSTEMI type 2. Low level and flat due to renal failure. On Aspirin. EF 60%. On Lopressor 25 bid 2. S/P Septic shock. On Abx. 3. ESRD, on HD per Dr. Cole. S/P PermCath placement by IR 4. VDRF due to COVID pneumonia. S/P Tracheostomy 07/08/19. 5. Atrial fib with RVR. On Lopressor 25 bid 6. Dysphagia, S/P PEG 07/13/19 7. COPD. 8. Anemia. DW RN Subjective Subjective In SDU on the vent via trach. Off pressors. Fio2 30% Covid positive x 10. Now has 2 negative Covid and off isolation Had atrial fib with RVR 130s Objective Last 24 Hour Vital Signs Date Time Temp Pulse Resp B/P (MAP) Pulse Ox O2 Delivery O2 Flow Rate FiO2 08/15/19 12:00 30 08/15/19 12:00 100 08/15/19 12:00 98.4 105 26 123/58 (79) 100 08/15/19 09:42 104 08/15/19 08:51 103 101/73 08/15/19 08:00 30 08/15/19 08:00 98.4 102 26 108/73 (85) 100 08/15/19 07:10 103 26 30 08/15/19 04:00 99.5 99 26 100/64 (76) 100 08/15/19 04:00 30 08/15/19 04:00 Mechanical Ventilator Mechanical Ventilator 08/15/19 03:47 106 08/15/19 03:13 101 30 30 08/15/19 00:00 97.3 87 26 101/63 (76) 100 08/15/19 00:00 Mechanical Ventilator Mechanical Ventilator 08/14/19 23:59 106 08/14/19 22:16 87 26 30 08/14/19 21:01 116 116/68 08/14/19 20:00 30 08/14/19 20:00 Mechanical Ventilator Mechanical Ventilator 08/14/19 20:00 98.6 116 26 116/68 (84) 100 08/14/19 19:35 104 29 30 08/14/19 19:21 117 08/14/19 16:05 115 08/14/19 16:00 99.3 117 26 127/70 (89) 100 08/14/19 16:00 Mechanical Ventilator Mechanical Ventilator 08/14/19 16:00 30 08/14/19 15:27 111 26 30 Intake and Output 08/14/19 08/15/19 19:00 07:00 Intake Total 480 ml 480 ml Output Total 150 ml 200 ml Balance 330 ml 280 ml Free Water 40 ml Tube Feeding 440 ml 480 ml Stool Total 150 ml 200 ml Laboratory Tests Test 08/14/19 16:59 08/15/19 04:50 POC Whole Blood Glucose Pending 259 MG/DL (74-106) H Microbiology Date/Time Source Procedure Growth Status 08/13/19 13:30 Blood Blood Culture - Preliminary NO GROWTH AFTER 24 HOURS Resulted 08/13/19 12:20 Blood Blood Culture - Preliminary Staphylococcus Sp Coag Neg Resulted Objective HEAD AND NECK: No JVD. Tracheostomy in place. Left IJ HD catheter now in place. Right IJ PermCath in place LUNGS: Decreased breath sounds. CARDIOVASCULAR: Regular S1 and S2. Tachycardic. ABDOMEN: Soft. PEG in place EXTREMITIES: No pitting edema. Gio Baker MD Aug 15, 2019 13:59
[2019-08-15] MEDS: Acetaminophen 650mg/20.3ml NG PRN (14:24)
--- NOTE | 2019-08-15 16:48 | Hematology/Onc Progress Note ---
Assessment/Plan Assessment/Plan Assessment and Recs: # Anemia of chronic disease, likely related ot underlying kidney disease has COIVD19++++++ --> hgb trend 9-->8-->7.3-->7.9-->6.8->9.5-->10->8.3-->7.7-->7.1-->8.9->8.8->7.7 -->8.1 ->7.9-->7.7 -->8.2-->8.1 -->7.9-->8.5 -->9->9.2-->9.5-->10.7 -->9.8--> 10.2-->11.8 -->11.9-->8.8 ->9.4->9-->8.3 -->8.5-->9.4->9.8-->9-->8.3-->11.6--> 10.8-->10.5-->10 --> transfuse as needed, hgb goal >7 --> no evidence of hemolysis --> peripheral smear has been reviewed --> epogen started 3 x a week ==>> transfuse 06/08, 06/15 # Leukocytosis likely related to suspected COVID-19 virus infection --> completed plaquenil --> trend smear as needed --> wbc trend: 4-->11-->14.5-->21-->26-->21->24--.28-->23-->19-->16.2-->21--> 11.2 -->12.5-->12.3-->12.4-->18.5-->18.5-->17->13-->18.2-->22.2-->25-->17.4-->17 -->14.2-->14-->16-->15.5-->9->17->11.5-->12->12 --> pulm is aware --> on abx cefepime/vanc->zosyn/vanc-->dom/vanc-->dom-->levaquin/cefepime--> vanc/zosyn --> pressors as needed --> 06/27 covid 19++ --> pressors as needed in icu --> c diff negative 08/08 --> blood cx++ # Thrombocytopenia/Lymphopenia --> likely related to covid19 --> plt 129k-->186k-->251-->285-->384 -->430-->539-->515-->447-->451-->404-->544 -->244 -->393 # Respiratory failure with covid19+ --> s/p vent/trach --> weaning # Possible Pneumonia --> abx completed --> 07/13 cxr: Improved right lung infiltrates. # Cardiomegaly # Transaminitis with Elevated AST # COPD # Chronic Kidney Disease --> per renal hd --> s/p right femoral cath 07/02 # Hypertension # peg # Dvt ppx lovenox Appreciate consultation and ernesto Rn Subjective Allergies: Coded Allergies: No Known Allergies (Unverified , 05/28/19) Subjective 06/01 nv, extremely agitated, not allowing labs draws, no night sweats, cbc ordered 06/02 confused, restraints, on abx and plaquenil, hgb 7.9, nrb 15 L 06/03 is with nonrebreather, but not compliant, remains confused 06/05 no bleeding, labs noted, no major bleeding, otherwise comfortable 06/06 labs reviewed, no bleeding, meds noted, no night sweats, on levo and nonrebreather 06/07 labs noted, no bleeding, meds reviewed, no bleeding, wbc higher 06/08 to get 2 units prbc, no night sweats, meds reviewed 06/09 is on cefepime and vanc, labs noted, ernesto Rn, no bleeding 06/10 no major changes, labs reviewed, wbc 28k, on abx, cefepime 06/12 remains in icu, labs noted, no night sweats or bleeding 06/13 sluggish pupils, remains agitated, per psych, no bleding, on vent, wbc sitll high 06/14 still confused, remains on vent, with ng, running nepro, on pressors 06/15 icu, febrile, non verbal, hgb 7.1, blood pending, completed plaq 06/16 remains in the icu, nonverbal, plan for hd tomorrow, ernesto rn 06/17 in icu, on pressor, nonverbal, on abx, no bleeding 06/19 no bleeding, nonverbal in icu, hgb is 7.7 06/20 on zosyn, tube feeds, vent, labs noted, in icu, nv 06/21 gettng hd as per renal, in icu, nv, no bleeding, tfs 06/22 icu, cxr with slight improvement, cooling blanket, weaning today 06/23 wewaning, in icu, on vent, abx, and pressors as needed, labs noted 06/24 failed weaning, off abx, completed plaquenil, hgb 8.1 06/26 icu, weaning for this am, afebrile, hgb 8 06/27 in icu, remains comotose, weaning started on peep, no night sweats 06/28 weaning today, off abx, restraints, no distress, h/h stable 06/29 covid 19+, failed weaning, no blood transfusion needed 06/30 icu, on vent, labs reviewed, no distress 07/01 in icu, may need trach, remains on hd per renal, labs noted 07/02 s/p right fem cath, failed wean, no new orders, h/h stable 07/03 is somewhat more responsive, on abx, no bleeding, weaning and HD today 07/04 hd as per renal, weaning off vent, no bleeding today 07/05 obtunded, no bleding overnight, with hd for tomorrow noted, vanc 07/08 no events, remains with trach/vent, ernesto Rn, no bleeding, cbc is noted 07/09 no overnight events, peg for friday pending consent 07/10 off pressors, vent, restraints, labs reviewed 07/11 no acute events is on pressors, intubated, agitated still 07/12 is resting comfortably, no bleeding, emds reviewed and noted 07/13 icu, no events, trach, cxr reviewed, 07/14 is onv ent, tachypneic and tachycardic, labs noted 07/15 remains confused, intubated, dw Rn, no bleeding 07/17 icu, cxr improving infiltrates, levo gtt, airborne/contact isolation 07/18 is on broad spectrum abx, is on levaquin and cefepime, wbc 16 agitated 07/19 icu, levo gtt, cxr unchanged, tachy, hd thursday 07/20 sedated, safety restraints, labs reviewed 07/21 hd was done yesterday, lower pressor requirements, wbc is worse, on abx 07/22 icu, meds and labs reviewed, vent, no distress 07/24 on vent, in icu, labs noted, remains agitated, and confused 07/25 remains obtunded, on vent, on pressor, hgb 9, wbc elev 07/26 icu, levo gtt, vent, iv abx, nonverbal 07/27 failed weaning, labs reviewed, repeat covid swab pending 07/28 labs are noted, no bleeding, on vent/trach gtube feeds dw rn 07/29 iuc, restraints, no new changes, vent 07/31 is asleep, comfortable, no events, labs reviewed, restraints+ 08/01 no events, agitated, no bleeding, meds noted, on gtube feeds 08/02 remains on vent, no bleeding, wbc higher 19, hgb 9, on abx 08/03 labs noted, on vent, no bleeding, wbc 17, hgb better 08/04 labs reviewed, no bleeding, does not require prbc, on vent 08/05 more alert, is on trach, vent, no major events, no bleeding, peg+ 08/07 no bleeding no chills, no night sweats, is on vent/trach 08/08 recent covid swab negative, restraints, cxr unchanged 08/09 c diff negative, zosyn, hd today, gtf 08/10 no overnight events, labs reviewed, afebrile 08/11 labs reviewed, meds noted, no fc, no major changes, wbc 12 08/12 abx changed to flucon, on abx, wbc 12 08/14 bp on low end, blood cx++, vanc, vent Objective Objective Current Medications Medications (Trade) Dose Ordered Sig/Anthony Route PRN Reason Start Time Stop Time Status Last Admin Dose Admin Acetaminophen (Tylenol) 650 mg Q4H PRN NG For Pain 08/04/19 21:38 09/03/19 21:37 08/15/19 14:24 Acetaminophen (Tylenol) 650 mg Q4H PRN NG Temp >100.5 08/15/19 13:30 09/08/19 08:29 Chlorhexidine Gluconate (Michelle-Hex 2%) 1 applic DAILY@2000 TOPIC 08/05/19 20:00 09/05/19 19:59 08/14/19 21:01 Dextrose (Dextrose 50%) 25 ml Q30M PRN IV Hypoglycemia 08/04/19 22:00 09/18/19 19:29 Dextrose (Dextrose 50%) 50 ml Q30M PRN IV Hypoglycemia 08/04/19 22:00 09/18/19 19:29 Enoxaparin Sodium (Lovenox) 30 mg DAILY SUBQ 08/05/19 09:00 08/27/19 08:59 08/15/19 08:54 Epoetin Aftab (Epoetin Aftab(ESRD on dialysis)) 10,000 unit FRI- SUBQ 08/11/19 21:00 11/09/19 20:59 08/13/19 21:04 Fluconazole (Diflucan) 200 mg DAILY NG 08/13/19 10:24 08/20/19 10:23 08/15/19 08:51 Haloperidol Lactate 5 mg/ Dextrose 56 ml @ 224 mls/hr Q6H PRN IVPB Agitation 08/04/19 21:38 09/18/19 21:37 Hydralazine HCl (Apresoline) 10 mg Q4H PRN IV Blood pressure over 160 systol 08/04/19 21:39 11/02/19 21:38 Insulin Aspart (NovoLOG) EVERY 6 HOURS SUBQ 08/05/19 00:00 09/19/19 00:00 08/15/19 12:17 Loperamide HCl (Imodium) 2 mg Q6H PRN NG Diarrhea 08/11/19 10:15 09/10/19 10:14 08/14/19 14:15 Metoclopramide HCl (Reglan) 5 mg Q8HR IVP 08/05/19 06:00 09/04/19 05:59 08/15/19 14:24 Metoprolol Tartrate (Lopressor) 25 mg Q12HR NG 08/14/19 21:00 11/11/19 20:59 7/5/20 08:51 Pantoprazole (Protonix) 40 mg DAILY IVP 08/05/19 09:00 08/26/19 08:59 08/15/19 08:50 Vancomycin HCl (Vanco pharmacy to dose) 1 ea DAILY PRN MISC Per rx protocol 08/15/19 08:45 09/14/19 08:44 Vancomycin HCl 1 gm/Dextrose 275 ml @ 183.708 mls/hr ONCE IVPB 08/15/19 10:00 08/20/19 09:59 08/15/19 10:31 Last 24 Hour Vital Signs Date Time Temp Pulse Resp B/P (MAP) Pulse Ox O2 Delivery O2 Flow Rate FiO2 08/15/19 16:00 98.2 99 26 89/52 (64) 100 08/15/19 15:10 77 27 30 08/15/19 12:00 30 08/15/19 12:00 100 08/15/19 12:00 98.4 105 26 123/58 (79) 100 08/15/19 12:00 Mechanical Ventilator Mechanical Ventilator 08/15/19 11:10 102 26 30 08/15/19 09:42 104 08/15/19 09:05 100 08/15/19 08:51 103 101/73 08/15/19 08:00 Mechanical Ventilator Mechanical Ventilator 08/15/19 08:00 30 08/15/19 08:00 98.4 102 26 108/73 (85) 100 08/15/19 07:10 103 26 30 08/15/19 04:00 99.5 99 26 100/64 (76) 100 08/15/19 04:00 30 08/15/19 04:00 Mechanical Ventilator Mechanical Ventilator 08/15/19 03:47 106 08/15/19 03:13 101 30 30 08/15/19 00:00 97.3 87 26 101/63 (76) 100 08/15/19 00:00 Mechanical Ventilator Mechanical Ventilator 08/14/19 23:59 106 08/14/19 22:16 87 26 30 08/14/19 21:01 116 116/68 08/14/19 20:00 30 08/14/19 20:00 Mechanical Ventilator Mechanical Ventilator 08/14/19 20:00 98.6 116 26 116/68 (84) 100 08/14/19 19:35 104 29 30 08/14/19 19:21 117 08/14/19 16:05 115 08/14/19 16:00 99.3 117 26 127/70 (89) 100 08/14/19 16:00 Mechanical Ventilator Mechanical Ventilator 08/14/19 16:00 30 08/14/19 15:27 111 26 30 08/14/19 12:14 99.0 08/14/19 12:00 112 08/14/19 12:00 30 08/14/19 12:00 Mechanical Ventilator Mechanical Ventilator 08/14/19 11:42 100.8 100 26 114/48 (70) 100 08/14/19 11:17 98 26 30 08/14/19 08:50 115 08/14/19 08:22 100 08/14/19 08:15 110 116/55 08/14/19 08:00 30 08/14/19 08:00 Mechanical Ventilator Mechanical Ventilator 08/14/19 08:00 98.2 110 26 116/55 (75) 100 08/14/19 07:28 106 28 30 08/14/19 04:00 30 08/14/19 04:00 Mechanical Ventilator Mechanical Ventilator 08/14/19 04:00 99.0 77 18 129/84 (99) 100 08/14/19 04:00 110 08/14/19 02:55 91 26 30 08/14/19 00:00 97.6 113 18 105/68 (80) 100 08/14/19 00:00 Mechanical Ventilator Mechanical Ventilator 08/14/19 00:00 115 08/13/19 22:47 110 26 30 08/13/19 20:56 116 105/69 08/13/19 20:00 Mechanical Ventilator Mechanical Ventilator 08/13/19 20:00 30 08/13/19 20:00 99.2 105 18 112/66 (81) 100 08/13/19 19:30 109 30 30 08/13/19 19:25 126 Intake and Output 08/14/19 08/15/19 19:00 07:00 Intake Total 480 ml 480 ml Output Total 150 ml 200 ml Balance 330 ml 280 ml Free Water 40 ml Tube Feeding 440 ml 480 ml Stool Total 150 ml 200 ml Labs Test 08/12/19 18:29 08/12/19 23:12 08/13/19 06:07 7/3/20 06:34 POC Whole Blood Glucose 246 MG/DL (74-106) 232 MG/DL (74-106) White Blood Count 17.1 K/UL (4.8-10.8) Red Blood Count 3.31 M/UL (4.70-6.10) Hemoglobin 9.6 G/DL (14.2-18.0) Hematocrit 30.6 % (42.0-52.0) Mean Corpuscular Volume 93 FL (80-99) Mean Corpuscular Hemoglobin 29.0 PG (27.0-31.0) Mean Corpuscular Hemoglobin Concent 31.3 G/DL (32.0-36.0) Red Cell Distribution Width 18.6 % (11.6-14.8) Platelet Count 327 K/UL (150-450) Mean Platelet Volume 7.2 FL (6.5-10.1) Neutrophils (%) (Auto) 79.3 % (45.0-75.0) Lymphocytes (%) (Auto) 13.4 % (20.0-45.0) Monocytes (%) (Auto) 3.7 % (1.0-10.0) Eosinophils (%) (Auto) 2.8 % (0.0-3.0) Basophils (%) (Auto) 0.8 % (0.0-2.0) Test 08/13/19 11:38 08/13/19 16:40 08/13/19 19:20 08/13/19 23:30 POC Whole Blood Glucose 299 MG/DL (74-106) 256 MG/DL (74-106) Sodium Level 142 MMOL/L (136-145) Potassium Level 3.3 MMOL/L (3.5-5.1) Chloride Level 98 MMOL/L (98-107) Carbon Dioxide Level 29 MMOL/L (21-32) Anion Gap 15 mmol/L (5-15) Blood Urea Nitrogen 37 mg/dL (7-18) Creatinine 4.4 MG/DL (0.55-1.30) Estimat Glomerular Filtration Rate 13.5 mL/min (>60) Glucose Level 238 MG/DL (74-106) Calcium Level 9.5 MG/DL (8.5-10.1) Total Bilirubin 0.4 MG/DL (0.2-1.0) Aspartate Amino Transf (AST/SGOT) 20 U/L (15-37) Alanine Aminotransferase (ALT/SGPT) 17 U/L (12-78) Alkaline Phosphatase 133 U/L (46-116) Total Protein 10.2 G/DL (6.4-8.2) Albumin 3.8 G/DL (3.4-5.0) Globulin 6.4 g/dL Albumin/Globulin Ratio 0.6 (1.0-2.7) Test 08/14/19 03:35 08/14/19 05:46 08/14/19 11:36 08/14/19 16:59 White Blood Count 16.5 K/UL (4.8-10.8) Red Blood Count 3.46 M/UL (4.70-6.10) Hemoglobin 9.9 G/DL (14.2-18.0) Hematocrit 32.8 % (42.0-52.0) Mean Corpuscular Volume 95 FL (80-99) Mean Corpuscular Hemoglobin 28.6 PG (27.0-31.0) Mean Corpuscular Hemoglobin Concent 30.2 G/DL (32.0-36.0) Red Cell Distribution Width 17.6 % (11.6-14.8) Platelet Count 346 K/UL (150-450) Mean Platelet Volume 7.8 FL (6.5-10.1) Neutrophils (%) (Auto) 76.8 % (45.0-75.0) Lymphocytes (%) (Auto) 14.1 % (20.0-45.0) Monocytes (%) (Auto) 6.4 % (1.0-10.0) Eosinophils (%) (Auto) 2.1 % (0.0-3.0) Basophils (%) (Auto) 0.7 % (0.0-2.0) Sodium Level 144 MMOL/L (136-145) Potassium Level 3.3 MMOL/L (3.5-5.1) Chloride Level 98 MMOL/L (98-107) Carbon Dioxide Level 29 MMOL/L (21-32) Anion Gap 17 mmol/L (5-15) Blood Urea Nitrogen 50 mg/dL (7-18) Creatinine 5.1 MG/DL (0.55-1.30) Estimat Glomerular Filtration Rate 11.4 mL/min (>60) Glucose Level 260 MG/DL (74-106) Calcium Level 9.4 MG/DL (8.5-10.1) Phosphorus Level 2.1 MG/DL (2.5-4.9) Magnesium Level 2.2 MG/DL (1.8-2.4) Total Bilirubin 0.4 MG/DL (0.2-1.0) Aspartate Amino Transf (AST/SGOT) 21 U/L (15-37) Alanine Aminotransferase (ALT/SGPT) 13 U/L (12-78) Alkaline Phosphatase 138 U/L (46-116) C-Reactive Protein, Quantitative 6.7 mg/dL (0.00-0.90) Pro-B-Type Natriuretic Peptide 8970 pg/mL (0-125) Total Protein 10.0 G/DL (6.4-8.2) Albumin 3.7 G/DL (3.4-5.0) Globulin 6.3 g/dL Albumin/Globulin Ratio 0.6 (1.0-2.7) POC Whole Blood Glucose 162 MG/DL (74-106) Test 08/15/19 04:50 POC Whole Blood Glucose 259 MG/DL (74-106) Height (Feet): 6 Height (Inches): 1.00 Weight (Pounds): 172 Objective General: nv, confused, sedated Heent: bilateral eye normal inspection, bilateral eye PERRL ++Ng Respiratory: normal breath sounds, no respiratory distress, intubated/vent +++ trach+++ Cardiovascular: regular rate, rhythm, no edema Gastrointestinal: normal inspection, soft, non-distended, peg+ Rectal: deferred Musculoskeletal: normal range of motion, non-tender, R fem cath++ Neurologic: alert, motor strength/tone normal, sensory intact, responsive, speech normal Skin: Decubitus/Ulcer - See RN skin exam. : jamaal+ Gerg Cabral MD Aug 15, 2019 16:48
--- NOTE | 2019-08-15 17:02 | Nephrology Progress Note ---
Assessment/Plan Problem List: (1) CASSANDRA (acute kidney injury) (2) Anemia in chronic kidney disease (CKD) (3) HTN (hypertension) (4) COVID-19 Assessment Acute renal failure most likely superimposed on chronic kidney disease Suspected COVID-19 virus infection Possible Pneumonia, lymphopenia, elevated AST Cardiomegaly, possible CHF COPD Hypertension Anemia, most likely related to chronic kidney disease Plan August 14: No labs done today. Patient hypotensive. Normal saline and albumin bolus given. Midodrin started. Will check lab tomorrow. August 13: Lab reviewed. Last dialysis yesterday. Next dialysis August 15. Potassium and phosphorus supplement given. Continue per consultants. August 12: No can panel done today. Due for dialysis today. Continue per consultants. August 11: Patient labs reviewed. Will order dialysis tomorrow. Continue per consultants. August 10: Patient was dialyzed yesterday. Today's labs checked. Stable from renal standpoint to view August 09: Patient scheduled for hemodialysis today. Will check labs tomorrow. August 08: Lab reviewed. Hemodialysis scheduled for tomorrow. August 07: Dialyzed yesterday. No labs drawn today. Will check labs tomorrow. Continue per consultants. August 06: Patient on dialysis now. Discussed with dialysis nurse. Slight catheter malfunction persist. August 05: Labs reviewed. Dialysis scheduled for tomorrow. Continue per consultants. August 04: No labs done today. Dialyzed yesterday. Check labs tomorrow. Continue per consultants. August 03: Lab reviewed. Due for dialysis today. White blood cell 17,500. August 02: Lab reviewed. Low phosphorus replaced. Hemodialysis ordered for tomorrow. White blood cells over 18,000. August 01: Labs reviewed. Potassium replacement ordered. Remains full code on ventilator via trach. Continue per consultants. July 31: Dialyzed yesterday. No can panel today. Remains full code. Remains on ventilator. Being fed through PEG. Continue per consultants. July 30: Patient due for dialysis today. Labs are reviewed. Remains full code. Status post trach to ventilator. Status post PEG. July 29: Patient dialyzed yesterday. Due for dialysis tomorrow. Remains in ICU. Full code. Status post trach tube to ventilator. Status post PEG. July 28: Due for dialysis today. Labs reviewed. Full code. Patient trached and vented. July 27: Last COVID test negative. COVID test will be repeated tomorrow. Will order dialysis tomorrow. Remains full code. Medication list and labs reviewed. July 26: No labs done today. Dialysis done yesterday. Will check lab tomorrow. Dialysis as needed. July 25: Lab reviewed. Dialysis today. Discussed with RN. July 24: Lab reviewed. Do dialysis tomorrow. Discussed with RN. July 23: Lab reviewed. Dialyzed yesterday. Discussed with RN. Remains full code. Next dialysis July 25. Will check labs tomorrow. July 22: Labs reviewed. Due for dialysis today. Discussed with RN. Watch borderline low blood pressure. Discussed with dialysis nurse. July 21: Today's lab reviewed. Will arrange for dialysis tomorrow. Discussed with RN. Aim to keep the blood pressure above 100 systolic. Continue per consultants. July 20: Patient was dialyzed yesterday. Could not ultrafiltrate much due to low blood pressure. Discussed with SHANIQUE Dick today. No labs drawn today. Continue per consultants. July 19: Due for dialysis today. Discussed with SHANIQUE Dick. Continue per consultants. July 18: Dialyzed July 16. Will order dialysis tomorrow July 19. Continues to be on ventilator through trach. No labs done today. Continue per consultants. July 17: Dialyzed yesterday. Stable from renal standpoint of view. Remains full code. Status post trach on vent. Status post PEG. Continue per consultants. July 16: Dialysis today. Will resume Midodrin to prevent hypotension. Patient remains full code. July 15: Dialyzed yesterday, due for dialysis tomorrow. Labs and medication list reviewed. Continue per consultants. Patient remains full code. COVID-19 detected again. July 14: Patient currently on dialysis. This is continuation of dialysis from yesterday as yesterday's dialysis was cut short due to catheter malfunction. Labs and medication reviewed. Continue per consultants. July 13: Patient currently on hemodialysis. The dialysis catheter which is a intrajugular Kamlesh has poor flow. Will try TPA. Continue per consultants. July 12: Due for PEG today. Due for dialysis tomorrow. Continue per consultants. Discussed with RN. July 11: Plan for dialysis today. Discussed with RN. Data reviewed. July 10: Plan for dialysis tomorrow July 11. Waiting for consent to proceed with PEG. Continue per consultants. Medication reviewed. Labs reviewed. Discussed with RN. July 09: Dialyzed yesterday. Labs reviewed. Medication reviewed. Next hemodialysis July 11. July 08: Patient has tracheostomy now. Connected to ventilator. Due for dialysis today. Continue per consultants. Discussed with SHANIQUE Romero. July 07: Patient is due for tracheostomy today. Patient was last dialyzed July 05. Will order dialysis for tomorrow. July 06: Patient is intubated on ventilator however the plan is to extubate today. Patient was dialysis yesterday July 05. The dialysis time was cut short due to patient's respiratory distress. Only 1 L was removed during dialysis yesterday. Today's lab reviewed. Continue per consultants. Will arrange for dialysis as needed. July 05: Patient due for dialysis today. Remains intubated. Will schedule permacath placement in a.m. blood cultures on July 04 are negative. July 04: Patient was dialyzed yesterday. Due for dialysis tomorrow. Continues to be intubated. After tomorrow's dialysis will order a permacath. July 03: Dialysis is about to be started now Continues to be intubated Will plan to remove the femoral dialysis catheter and exchanged for a new temporary catheter per ID recommendation We will check surveillance blood culture tomorrow July 02: Patient was dialyzed yesterday and due for dialysis tomorrow Stable from renal standpoint W on dialysis Continue per consultants, weaning....... etc. July 01: Dialysis today Other status unchanged June 30: Due for dialysis tomorrow Remains intubated on ventilator Labs and medication reviewed Discussed with RN Stable from renal standpoint of view June 29: Dialyzed yesterday Due for dialysis tomorrow Stable from renal standpoint to view Keeps failing weaning process June 28: Patient due for dialysis today Stable from renal standpoint to view Continue per consultants June 27: Labs reviewed Due due for dialysis June 28 Discussed with SHANIQUE Dick Continue per consultants Remains intubated on ventilator June 26 Labs reviewed Dialyzed yesterday Started on weaning today Continue to monitor renal parameters June 25: On dialysis now Potassium supplement implemented Continue per consultants Next dialysis June 27June 15: Status unchanged Dialyzed yesterday will dialyze again tomorrow Potassium supplements given Discussed with RN June 14: Due dialysis today Status: Remains intubated on ventilator June 22: Status unchanged Dialyzed yesterday and duefordialysistomorrow Serum sodium stable today June 21 Remains intubated on ventilator Due dialysis today Emphasized high sodium bath for dialysis June 20: Remains intubated on ventilator Dialyzed June 19 next dialysis June 21 Serum sodium 128, will give 250 cc 3% saline Remains full code Discussed with RN Iron panel ordered June 19: Discussed with RN. Patient due for dialysis today. Continue pulmonary support. Remains full code. June 18: Patient dialyzed yesterday June 17 Serum sodium improved but still low Arrange for dialysis tomorrow June 19 Continue per consultants June 17: Due for dialysis today Today's lab reviewed, low serum sodium noted, Emphasized on high sodium bath to dialysis nurse Discussed with SHANIQUE Yuen June 16: Dialyzed yesterday Remains intubated Labs reviewed, serum sodium 131 Plan to dialyze tomorrow June 17 with high sodium bath Discussed with SHANIQUE Yuen June 15: Due for dialysis today Labs reviewed Discussed with RN Transfuse 1 unit of packed RBCs today for low hemoglobin of 7.1 June 5: Blood pressure well maintained Receive dialysis June 13 next hemodialysis June 15June 4: Discussed with RN in ICU Patient did not receive proper dialysis yesterday due to dialysis catheter malfunction Catheter to be adjusted today and dialyzed to be resumed today Continue per consultants Positive for COVID 28 June 2: Patient now intubated on mechanical ventilation Discussed with SHANIQUE Yuen, today June 12 Patient received dialysis yesterday June 10 next hemodialysis June 12 Blood pressure better maintained Today's labs reviewed Continue per consultants Previously patient received dialysis last evening June 05, next dialysis June 07 which was incomplete due to patient's hypotension Will start on midodrine for blood pressure support. Meanwhile continue other pressors as needed Previously Patient is doing poorly, septic, white blood cells are rising, Hypotension somewhat improved We will keep n.p.o. , NG tube for medications, and change medication to IV as needed Patient remains full code Monitor vancomycin level Previously: Patient pulled out his femoral catheter yesterday June 03 which was reinserted by Dr. Mast Patient scheduled for dialysis again June 04, which again was not done due to dialysis nurse citing catheter malfunction Meanwhile continue management per ID, pulmonary , and psych. Meanwhile white blood cell count is rising. Patient blood pressure borderline low. Will check ABG Previously May 31 : I believe patient need dialysis treatment He however needs to competency assessment if can make decisions or not I will communicate with Dr. Mulligan Previously: Per pulmonary and ID advice Adjust blood pressure medication Renal diet Anemia work-up 2D echocardiogram refused Kidney ultrasound refused Jlues catheter Urine studies Per orders Subjective ROS Limited/Unobtainable: Yes Objective Objective Last 24 Hour Vital Signs Date Time Temp Pulse Resp B/P (MAP) Pulse Ox O2 Delivery O2 Flow Rate FiO2 08/15/19 16:00 98.2 99 26 89/52 (64) 100 08/15/19 16:00 Mechanical Ventilator Mechanical Ventilator 08/15/19 16:00 30 08/15/19 16:00 102 08/15/19 15:10 77 27 30 08/15/19 12:00 30 08/15/19 12:00 100 08/15/19 12:00 98.4 105 26 123/58 (79) 100 08/15/19 12:00 Mechanical Ventilator Mechanical Ventilator 08/15/19 11:10 102 26 30 08/15/19 09:42 104 08/15/19 09:05 100 08/15/19 08:51 103 101/73 08/15/19 08:00 Mechanical Ventilator Mechanical Ventilator 08/15/19 08:00 30 08/15/19 08:00 98.4 102 26 108/73 (85) 100 08/15/19 07:10 103 26 30 08/15/19 04:00 99.5 99 26 100/64 (76) 100 08/15/19 04:00 30 08/15/19 04:00 Mechanical Ventilator Mechanical Ventilator 08/15/19 03:47 106 08/15/19 03:13 101 30 30 08/15/19 00:00 97.3 87 26 101/63 (76) 100 08/15/19 00:00 Mechanical Ventilator Mechanical Ventilator 08/14/19 23:59 106 08/14/19 22:16 87 26 30 08/14/19 21:01 116 116/68 08/14/19 20:00 30 08/14/19 20:00 Mechanical Ventilator Mechanical Ventilator 08/14/19 20:00 98.6 116 26 116/68 (84) 100 08/14/19 19:35 104 29 30 08/14/19 19:21 117 Intake and Output 08/14/19 08/15/19 19:00 07:00 Intake Total 480 ml 480 ml Output Total 150 ml 200 ml Balance 330 ml 280 ml Free Water 40 ml Tube Feeding 440 ml 480 ml Stool Total 150 ml 200 ml Laboratory Tests 08/15/19 04:50: POC Whole Blood Glucose 259H Height (Feet): 6 Height (Inches): 1.00 Weight (Pounds): 172 General Appearance: no apparent distress Cardiovascular: other - Variable rate Respiratory/Chest: other - Trach and vent Abdomen: other - PEG Objective No change Mic Cole MD Aug 15, 2019 17:02
[2019-08-15] MEDS: Midodrine 10mg tab NG SCH (17:17)
--- NOTE | 2019-08-15 18:51 | Pulmonolgy Critical Care Note ---
Critical Care - Asmt/Plan Assessment/Plan: Pulmonary Progress Note HPI: Patient is a 68 year old man, [facility] resident, admitted c/o shortness of breath, cough, noted to have Covid 19 Pneumonia, Respiratory Failure Remains on Ventilator, CXR infiltrates stable 7/2 Anemia CKD on HD - on Mitodrine, not tolerating weaning, will need eventual placement, second consecutive repeat COVID19 test negative Preserved EF FIO2 30%, P5, adequate O2 sats, remains on ACVC, tolerated CPAP PS 10, s/p Tracheostomy previously, sp PEG Fevers today, line removed On AB per ID for coagulase negative staph MRSA sputum Seen earlier Past Medical History: COPD, CKD, Hypertension, Anemia Allergies: No Known Allergies Improving Pulmonary Status on HD Physical Exam Vital Signs Noted Stable on ventilator Chronically ill appearing HEENT: Trach CDI Chest: CTAB Hreart: HS1, HS2, RRR Abdomen: SNTND, Gtube Extremities: Wasted, no edema RN MANAGER:No focal signs Impression: COVID-19 virus infection Pneumonia Respiratory failure on ventilator, wean as tolerated once off pressors CKD - on HD Hypotension on pressors previously Cardiomegaly Leukocytosis Elevated AST COPD Chronic Kidney Disease - HD H/o Hypertension Worsening anemia sepsis sinus tachycardia Plan: trach care as is Antibiotics per ID HD per renal monitor vitals AC -joseph as tolerated anxiolytics if needed 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 if needed; Monitor lab data nutrition feeds Hemodialysis per Renal impression, plan, and exam edited and reviewed in detail care discussed with RN Laboratory Tests Noted: CXR: Hypoventilatory exam, interstitial changes, cardiomegaly, improving infiltrates Subjective ROS Limited/Unobtainable: No Constitutional: Denies: fever Respiratory: Reports: dry cough, shortness of breath Gastrointestinal/Abdominal: Reports: diarrhea, other - colace was stopped Psychiatric: Reports: other - refuses labs Allergies: Coded Allergies: No Known Allergies (Unverified , 05/28/19) All Systems: reviewed and negative except above Labs noted Critical Care - Objective Last 24 Hour Vital Signs Date Time Temp Pulse Resp B/P (MAP) Pulse Ox O2 Delivery O2 Flow Rate FiO2 08/15/19 18:00 98.2 99 26 119/72 (88) 100 08/15/19 16:00 98.2 99 26 89/52 (64) 100 08/15/19 16:00 Mechanical Ventilator Mechanical Ventilator 08/15/19 16:00 30 08/15/19 16:00 102 08/15/19 15:10 77 27 30 08/15/19 12:00 30 08/15/19 12:00 100 08/15/19 12:00 98.4 105 26 123/58 (79) 100 08/15/19 12:00 Mechanical Ventilator Mechanical Ventilator 08/15/19 11:10 102 26 30 08/15/19 09:42 104 08/15/19 09:05 100 08/15/19 08:51 103 101/73 08/15/19 08:00 Mechanical Ventilator Mechanical Ventilator 08/15/19 08:00 30 08/15/19 08:00 98.4 102 26 108/73 (85) 100 08/15/19 07:10 103 26 30 08/15/19 04:00 99.5 99 26 100/64 (76) 100 08/15/19 04:00 30 08/15/19 04:00 Mechanical Ventilator Mechanical Ventilator 08/15/19 03:47 106 08/15/19 03:13 101 30 30 08/15/19 00:00 97.3 87 26 101/63 (76) 100 08/15/19 00:00 Mechanical Ventilator Mechanical Ventilator 08/14/19 23:59 106 08/14/19 22:16 87 26 30 08/14/19 21:01 116 116/68 08/14/19 20:00 30 08/14/19 20:00 Mechanical Ventilator Mechanical Ventilator 08/14/19 20:00 98.6 116 26 116/68 (84) 100 08/14/19 19:35 104 29 30 08/14/19 19:21 117 Micro: Microbiology Date/Time Source Procedure Growth Status 08/13/19 13:30 Blood Blood Culture - Preliminary NO GROWTH AFTER 24 HOURS Resulted 08/13/19 12:20 Blood Blood Culture - Preliminary Staphylococcus Sp Coag Neg Resulted Accucheck: 266 Critical Care - Subjective ROS Limited/Unobtainable: Yes FI02: 30 Vent Support Breath Rate: 26 Vent Support Mode: AC Vent Tidal Volume: 500 Sputum Amount: Small PEEP: 5.0 PIP: 32 Tube Feeding Amount: 40 I&O: Intake and Output 08/14/19 08/15/19 19:00 07:00 Intake Total 480 ml 480 ml Output Total 150 ml 200 ml Balance 330 ml 280 ml Free Water 40 ml Tube Feeding 440 ml 480 ml Stool Total 150 ml 200 ml ET-Tube: 7.5 ET Position: 24 Arturo Mckeon MD Aug 15, 2019 18:51
[2019-08-15] MEDS: Dyna-Hex 2% Top Sol 2oz TOPIC SCH (20:27)
[2019-08-15] MEDS: Metoprolol Tartrate 12.5mg TAB NG SCH (21:00)
--- NOTE | 2019-08-15 22:37 | General Progress Note ---
Assessment/Plan Problem List: (1) HTN (hypertension) ICD Codes: I10 - Essential (primary) hypertension SNOMED: 09932226 (2) CASSANDRA (acute kidney injury) ICD Codes: N17.9 - Acute kidney failure, unspecified SNOMED: 8181753, 89583508 (3) Anemia in chronic kidney disease (CKD) ICD Codes: N18.9 - Chronic kidney disease, unspecified; D63.1 - Anemia in chronic kidney disease SNOMED: 969666179 (4) Renal failure ICD Codes: N19 - Unspecified kidney failure SNOMED: 43284816 (5) Respiratory failure requiring intubation ICD Codes: J96.90 - Respiratory failure, unspecified, unspecified whether with hypoxia or hypercapnia; A41.89 - Other specified sepsis SNOMED: 345122621, 716105405 (6) Pneumonia due to COVID-19 virus ICD Codes: U07.1 - COVID-19; J12.89 - Other viral pneumonia SNOMED: 774243456, 178643879 (7) Sepsis due to severe acute respiratory syndrome coronavirus 2 (SARS-CoV-2) ICD Codes: U07.1 - COVID-19; A41.89 - Other specified sepsis SNOMED: 972617262, 505052530 Status: progressing, unchanged, deteriorating Assessment/Plan: sepsis fungemia resp insuff persistent leukocytosis needs placement off pressor trach and peg Subjective ROS Limited/Unobtainable: Yes Allergies: Coded Allergies: No Known Allergies (Unverified , 05/28/19) Objective Last 24 Hour Vital Signs Date Time Temp Pulse Resp B/P (MAP) Pulse Ox O2 Delivery O2 Flow Rate FiO2 08/15/19 21:00 89 115/60 08/15/19 20:00 Mechanical Ventilator Mechanical Ventilator 08/15/19 20:00 98.8 89 28 115/60 (78) 99 08/15/19 20:00 30 08/15/19 19:52 92 08/15/19 19:32 88 26 30 08/15/19 18:00 98.2 99 26 119/72 (88) 100 08/15/19 16:00 98.2 99 26 89/52 (64) 100 08/15/19 16:00 Mechanical Ventilator Mechanical Ventilator 08/15/19 16:00 30 08/15/19 16:00 102 08/15/19 15:10 77 27 30 08/15/19 12:00 30 08/15/19 12:00 100 08/15/19 12:00 98.4 105 26 123/58 (79) 100 08/15/19 12:00 Mechanical Ventilator Mechanical Ventilator 08/15/19 11:10 102 26 30 08/15/19 09:42 104 08/15/19 09:05 100 08/15/19 08:51 103 101/73 08/15/19 08:00 Mechanical Ventilator Mechanical Ventilator 08/15/19 08:00 30 08/15/19 08:00 98.4 102 26 108/73 (85) 100 08/15/19 07:10 103 26 30 08/15/19 04:00 99.5 99 26 100/64 (76) 100 08/15/19 04:00 30 08/15/19 04:00 Mechanical Ventilator Mechanical Ventilator 08/15/19 03:47 106 08/15/19 03:13 101 30 30 08/15/19 00:00 97.3 87 26 101/63 (76) 100 08/15/19 00:00 Mechanical Ventilator Mechanical Ventilator 08/14/19 23:59 106 Intake and Output 08/14/19 08/15/19 19:00 07:00 Intake Total 480 ml 480 ml Output Total 150 ml 200 ml Balance 330 ml 280 ml Free Water 40 ml Tube Feeding 440 ml 480 ml Stool Total 150 ml 200 ml Laboratory Tests 08/15/19 04:50: POC Whole Blood Glucose 259H 08/15/19 20:26: POC Whole Blood Glucose 261H Height (Feet): 6 Height (Inches): 1.00 Weight (Pounds): 172 Karishma Mulligan MD Aug 15, 2019 22:37
[2019-08-16] VITALS: BP 99/62
[2019-08-16] MEDS: NovoLOG Insulin Flexpen SUBQ SCH ×5 (00:41→23:12)
[2019-08-16 04:00] VITALS: BP 105/70
[2019-08-16] MEDS: Metoclopramide 10mg/2ml Inj IVP SCH ×3 (05:41→22:22)
[2019-08-16 06:15] LABS: HEMATOCRIT 32.8 % (42.0-52.0); HEMOGLOBIN 9.7 G/DL (14.2-18.0); MEAN CORPUSCULAR VOLUME 96 FL (80-99); PLATELET COUNT 360 K/UL (150-450); RED BLOOD COUNT 3.42 M/UL (4.70-6.10); RED CELL DISTRIBUTION WIDTH 18.9 % (11.6-14.8); WHITE BLOOD COUNT 18.2 K/UL (4.8-10.8)
[2019-08-16 06:25] LABS: ALANINE AMINOTRANSFERASE 14 U/L (12-78); ALBUMIN 3.4 G/DL (3.4-5.0); ALBUMIN/GLOBULIN RATIO 0.6 (1.0-2.7); ALKALINE PHOSPHATASE 158 U/L (46-116); ANION GAP 17 mmol/L (5-15); ASPARTATE AMINO TRANSFERASE 19 U/L (15-37); BILIRUBIN,TOTAL 0.4 MG/DL (0.2-1.0); BLOOD UREA NITROGEN 85 mg/dL (7-18); CALCIUM 10.1 MG/DL (8.5-10.1); CARBON DIOXIDE 27 MMOL/L (21-32); CHLORIDE 101 MMOL/L (98-107); SODIUM 145 MMOL/L (136-145)
[2019-08-16 07:27] LABS: PHOSPHORUS 3.4 MG/DL (2.5-4.9)
[2019-08-16 08:00] VITALS: BP 122/47
--- NOTE | 2019-08-16 08:10 | Nephrology Progress Note ---
Assessment/Plan Problem List: (1) CASSANDRA (acute kidney injury) (2) Anemia in chronic kidney disease (CKD) (3) HTN (hypertension) (4) COVID-19 Assessment Acute renal failure most likely superimposed on chronic kidney disease Suspected COVID-19 virus infection Possible Pneumonia, lymphopenia, elevated AST Cardiomegaly, possible CHF COPD Hypertension Anemia, most likely related to chronic kidney disease Plan August 15: Due for dialysis today. Remains borderline low. No ultrafiltration during dialysis. Discussed with SHANIQUE Macdonald. August 14: No labs done today. Patient hypotensive. Normal saline and albumin bolus given. Midodrin started. Will check lab tomorrow. August 13: Lab reviewed. Last dialysis yesterday. Next dialysis August 15. Potassium and phosphorus supplement given. Continue per consultants. August 12: No can panel done today. Due for dialysis today. Continue per consultants. August 11: Patient labs reviewed. Will order dialysis tomorrow. Continue per consultants. August 10: Patient was dialyzed yesterday. Today's labs checked. Stable from renal standpoint to view August 09: Patient scheduled for hemodialysis today. Will check labs tomorrow. August 08: Lab reviewed. Hemodialysis scheduled for tomorrow. August 07: Dialyzed yesterday. No labs drawn today. Will check labs tomorrow. Continue per consultants. August 06: Patient on dialysis now. Discussed with dialysis nurse. Slight catheter malfunction persist. August 05: Labs reviewed. Dialysis scheduled for tomorrow. Continue per consultants. August 04: No labs done today. Dialyzed yesterday. Check labs tomorrow. Continue per consultants. August 03: Lab reviewed. Due for dialysis today. White blood cell 17,500. August 02: Lab reviewed. Low phosphorus replaced. Hemodialysis ordered for tomorrow. White blood cells over 18,000. August 01: Labs reviewed. Potassium replacement ordered. Remains full code on ventilator via trach. Continue per consultants. July 31: Dialyzed yesterday. No can panel today. Remains full code. Remains on ventilator. Being fed through PEG. Continue per consultants. July 30: Patient due for dialysis today. Labs are reviewed. Remains full code. Status post trach to ventilator. Status post PEG. July 29: Patient dialyzed yesterday. Due for dialysis tomorrow. Remains in ICU. Full code. Status post trach tube to ventilator. Status post PEG. July 28: Due for dialysis today. Labs reviewed. Full code. Patient trached and vented. July 27: Last COVID test negative. COVID test will be repeated tomorrow. Will order dialysis tomorrow. Remains full code. Medication list and labs reviewed. July 26: No labs done today. Dialysis done yesterday. Will check lab tomorrow. Dialysis as needed. July 25: Lab reviewed. Dialysis today. Discussed with RN. July 24: Lab reviewed. Do dialysis tomorrow. Discussed with RN. July 23: Lab reviewed. Dialyzed yesterday. Discussed with RN. Remains full code. Next dialysis July 25. Will check labs tomorrow. July 22: Labs reviewed. Due for dialysis today. Discussed with RN. Watch borderline low blood pressure. Discussed with dialysis nurse. July 21: Today's lab reviewed. Will arrange for dialysis tomorrow. Discussed with RN. Aim to keep the blood pressure above 100 systolic. Continue per consultants. July 20: Patient was dialyzed yesterday. Could not ultrafiltrate much due to low blood pressure. Discussed with SHANIQUE Dick today. No labs drawn today. Continue per consultants. July 19: Due for dialysis today. Discussed with SHANIQUE Dick. Continue per consultants. July 18: Dialyzed July 16. Will order dialysis tomorrow July 19. Continues to be on ventilator through trach. No labs done today. Continue per consultants. July 17: Dialyzed yesterday. Stable from renal standpoint of view. Remains full code. Status post trach on vent. Status post PEG. Continue per consultants. July 16: Dialysis today. Will resume Midodrin to prevent hypotension. Patient remains full code. July 15: Dialyzed yesterday, due for dialysis tomorrow. Labs and medication list reviewed. Continue per consultants. Patient remains full code. COVID-19 detected again. July 14: Patient currently on dialysis. This is continuation of dialysis from yesterday as yesterday's dialysis was cut short due to catheter malfunction. Labs and medication reviewed. Continue per consultants. July 13: Patient currently on hemodialysis. The dialysis catheter which is a intrajugular Kamlesh has poor flow. Will try TPA. Continue per consultants. July 12: Due for PEG today. Due for dialysis tomorrow. Continue per consultants. Discussed with RN. July 11: Plan for dialysis today. Discussed with RN. Data reviewed. July 10: Plan for dialysis tomorrow July 11. Waiting for consent to proceed with PEG. Continue per consultants. Medication reviewed. Labs reviewed. Discussed with RN. July 09: Dialyzed yesterday. Labs reviewed. Medication reviewed. Next hemodialysis July 11. July 08: Patient has tracheostomy now. Connected to ventilator. Due for dialysis today. Continue per consultants. Discussed with SHANIQUE Romero. July 07: Patient is due for tracheostomy today. Patient was last dialyzed July 05. Will order dialysis for tomorrow. July 06: Patient is intubated on ventilator however the plan is to extubate today. Patient was dialysis yesterday July 05. The dialysis time was cut short due to patient's respiratory distress. Only 1 L was removed during dialysis yesterday. Today's lab reviewed. Continue per consultants. Will arrange for dialysis as needed. July 05: Patient due for dialysis today. Remains intubated. Will schedule permacath placement in a.m. blood cultures on July 04 are negative. July 04: Patient was dialyzed yesterday. Due for dialysis tomorrow. Continues to be intubated. After tomorrow's dialysis will order a permacath. July 03: Dialysis is about to be started now Continues to be intubated Will plan to remove the femoral dialysis catheter and exchanged for a new temporary catheter per ID recommendation We will check surveillance blood culture tomorrow July 02: Patient was dialyzed yesterday and due for dialysis tomorrow Stable from renal standpoint W on dialysis Continue per consultants, weaning....... etc. July 01: Dialysis today Other status unchanged June 30: Due for dialysis tomorrow Remains intubated on ventilator Labs and medication reviewed Discussed with RN Stable from renal standpoint of view June 29: Dialyzed yesterday Due for dialysis tomorrow Stable from renal standpoint to view Keeps failing weaning process June 28: Patient due for dialysis today Stable from renal standpoint to view Continue per consultants June 27: Labs reviewed Due due for dialysis June 28 Discussed with SHANIQUE Dick Continue per consultants Remains intubated on ventilator June 26 Labs reviewed Dialyzed yesterday Started on weaning today Continue to monitor renal parameters June 16: On dialysis now Potassium supplement implemented Continue per consultants Next dialysis June 27June 15: Status unchanged Dialyzed yesterday will dialyze again tomorrow Potassium supplements given Discussed with RN May 14: Due dialysis today Status: Remains intubated on ventilator June 22: Status unchanged Dialyzed yesterday and duefordialysistomorrow Serum sodium stable today June 21 Remains intubated on ventilator Due dialysis today Emphasized high sodium bath for dialysis June 20: Remains intubated on ventilator Dialyzed June 19 next dialysis June 21 Serum sodium 128, will give 250 cc 3% saline Remains full code Discussed with RN Iron panel ordered June 19: Discussed with RN. Patient due for dialysis today. Continue pulmonary support. Remains full code. June 18: Patient dialyzed yesterday June 17 Serum sodium improved but still low Arrange for dialysis tomorrow June 19 Continue per consultants June 17: Due for dialysis today Today's lab reviewed, low serum sodium noted, Emphasized on high sodium bath to dialysis nurse Discussed with SHANIQUE Yuen June 16: Dialyzed yesterday Remains intubated Labs reviewed, serum sodium 131 Plan to dialyze tomorrow June 17 with high sodium bath Discussed with SHANIQUE Yuen June 15: Due for dialysis today Labs reviewed Discussed with RN Transfuse 1 unit of packed RBCs today for low hemoglobin of 7.1 June 5: Blood pressure well maintained Receive dialysis June 13 next hemodialysis June 15June 4: Discussed with RN in ICU Patient did not receive proper dialysis yesterday due to dialysis catheter malfunction Catheter to be adjusted today and dialyzed to be resumed today Continue per consultants Positive for COVID 28 June 2: Patient now intubated on mechanical ventilation Discussed with SHANIQUE Yuen, today June 12 Patient received dialysis yesterday June 10 next hemodialysis June 12 Blood pressure better maintained Today's labs reviewed Continue per consultants Previously patient received dialysis last evening June 05, next dialysis June 07 which was incomplete due to patient's hypotension Will start on midodrine for blood pressure support. Meanwhile continue other pressors as needed Previously Patient is doing poorly, septic, white blood cells are rising, Hypotension somewhat improved We will keep n.p.o. , NG tube for medications, and change medication to IV as needed Patient remains full code Monitor vancomycin level Previously: Patient pulled out his femoral catheter yesterday June 03 which was reinserted by Dr. Mast Patient scheduled for dialysis again June 04, which again was not done due to dialysis nurse citing catheter malfunction Meanwhile continue management per ID, pulmonary , and psych. Meanwhile white blood cell count is rising. Patient blood pressure borderline low. Will check ABG Previously May 31 : I believe patient need dialysis treatment He however needs to competency assessment if can make decisions or not I will communicate with Dr. Mulligan Previously: Per pulmonary and ID advice Adjust blood pressure medication Renal diet Anemia work-up 2D echocardiogram refused Kidney ultrasound refused Jules catheter Urine studies Per orders Subjective ROS Limited/Unobtainable: Yes Objective Objective Last 24 Hour Vital Signs Date Time Temp Pulse Resp B/P (MAP) Pulse Ox O2 Delivery O2 Flow Rate FiO2 08/16/19 07:24 86 27 30 30 08/16/19 07:16 82 26 30 08/16/19 04:00 30 08/16/19 04:00 97.8 100 28 105/70 (82) 99 08/16/19 04:00 Mechanical Ventilator Mechanical Ventilator 08/16/19 03:45 93 26 30 08/16/19 03:34 91 08/16/19 00:00 98.5 93 28 99/62 (74) 99 08/16/19 00:00 30 08/16/19 00:00 Mechanical Ventilator Mechanical Ventilator 08/16/19 00:00 94 08/15/19 23:40 84 26 30 08/15/19 21:00 89 115/60 08/15/19 20:00 Mechanical Ventilator Mechanical Ventilator 08/15/19 20:00 98.8 89 28 115/60 (78) 99 08/15/19 20:00 30 08/15/19 19:52 92 08/15/19 19:32 88 26 30 08/15/19 18:00 98.2 99 26 119/72 (88) 100 08/15/19 16:00 98.2 99 26 89/52 (64) 100 08/15/19 16:00 Mechanical Ventilator Mechanical Ventilator 08/15/19 16:00 30 08/15/19 16:00 102 08/15/19 15:10 77 27 30 08/15/19 12:00 30 08/15/19 12:00 100 08/15/19 12:00 98.4 105 26 123/58 (79) 100 08/15/19 12:00 Mechanical Ventilator Mechanical Ventilator 08/15/19 11:10 102 26 30 08/15/19 09:42 104 08/15/19 09:05 100 08/15/19 08:51 103 101/73 Intake and Output 08/15/19 08/16/19 19:00 07:00 Intake Total 580 ml 440 ml Output Total 150 ml 130 ml Balance 430 ml 310 ml Free Water 100 ml Tube Feeding 480 ml 440 ml Stool Total 150 ml 130 ml Laboratory Tests 08/15/19 20:26: POC Whole Blood Glucose 261H 08/16/19 05:18: White Blood Count 18.2H, Red Blood Count 3.42L, Hemoglobin 9.7L, Hematocrit 32.8L, Mean Corpuscular Volume 96, Mean Corpuscular Hemoglobin 28.4, Mean Corpuscular Hemoglobin Concent 29.6L, Red Cell Distribution Width 18.9H, Platelet Count 360, Mean Platelet Volume 7.6, Neutrophils (%) (Auto) , Lymphocytes (%) (Auto) , Monocytes (%) (Auto) , Eosinophils (%) (Auto) , Basophils (%) (Auto) , Neutrophils % (Manual) [Pending], Lymphocytes % (Manual) [Pending], Platelet Estimate [Pending], Platelet Morphology [Pending], Sodium Level 145, Potassium Level 5.0, Chloride Level 101, Carbon Dioxide Level 27, Anion Gap 17H, Blood Urea Nitrogen 85H, Creatinine 8.0H, Estimat Glomerular Filtration Rate 6.8, Glucose Level 221H, Uric Acid 9.7H, Calcium Level 10.1, Phosphorus Level 3.4, Magnesium Level 2.4, Total Bilirubin 0.4, Aspartate Amino Transf (AST/SGOT) 19, Alanine Aminotransferase (ALT/SGPT) 14, Alkaline Phosphatase 158H, C-Reactive Protein, Quantitative 5.7H, Pro-B-Type Natriuretic Peptide 6480H, Total Protein 9.3H, Albumin 3.4, Globulin 5.9, Albumin/Globulin Ratio 0.6L, Cortisol AM Sample [Pending], Random Vancomycin Level 27.2 08/16/19 05:31: POC Whole Blood Glucose 196H Height (Feet): 6 Height (Inches): 1.00 Weight (Pounds): 171 General Appearance: no apparent distress EENT: other - Trach and vent Cardiovascular: tachycardia Respiratory/Chest: decreased breath sounds Abdomen: distended Objective No change Mic Cole MD Aug 16, 2019 08:10
[2019-08-16] MEDS: Fluconazole 100mg tab NG SCH (08:50)
[2019-08-16] MEDS: Metoprolol Tartrate 12.5mg TAB NG SCH ×2 (08:50→20:12)
[2019-08-16] MEDS: Pantoprazole Inj IVP SCH (08:50)
[2019-08-16] MEDS: Midodrine 10mg tab NG SCH ×3 (08:51→17:20)
[2019-08-16] MEDS: Enoxaparin 30mg Inj SUBQ SCH (08:51)
--- NOTE | 2019-08-16 11:05 | Infectious Diseases Prog Note ---
Assessment/Plan Assessment/Plan IMPRESSION: 1. COVID19 pneumonia Positive: 05/27, 05/31 , 06/05, 06/09 ,06/17, 06/19, 06/23, 06/27, 07/03, 07/15, 07/29 Negative: 07/26, 08/04, 08/05 2. MRSA carrier. 3. Chronic kidney disease , end-stage renal disease. 4. COPD. 5. Hypertension. 6. Anemia. 7. Hypothyroidism. 8. Hyperlipidemia. 9. Major depression. 10. Leukocytosis 11. Hypotension 12. Hepatitis C 13. Hyperuricemia 14. Diarrhea, C difficile negative 15. septic shock 16.Sepsis Catheter tip yeast blood culture: Staph Coagulase negative 17. Pneumonia with Staph aureus ( MRSA) 18. Candidal sepsis 19. Diarrhea, C. difficile negative RECOMMENDATIONS: continue Fluconazole & Vancomycin Check for C. difficile test Subjective ROS Limited/Unobtainable: Yes Constitutional: Denies: fever Gastrointestinal/Abdominal: Reports: diarrhea Allergies: Coded Allergies: No Known Allergies (Unverified , 05/28/19) Objective Last 24 Hour Vital Signs Date Time Temp Pulse Resp B/P (MAP) Pulse Ox O2 Delivery O2 Flow Rate FiO2 08/16/19 10:39 86 33 30 30 08/16/19 08:50 90 112/71 08/16/19 08:00 88 08/16/19 07:24 86 27 30 30 08/16/19 07:16 82 26 30 08/16/19 04:00 30 08/16/19 04:00 97.8 100 28 105/70 (82) 99 08/16/19 04:00 Mechanical Ventilator Mechanical Ventilator 08/16/19 03:45 93 26 30 08/16/19 03:34 91 08/16/19 00:00 98.5 93 28 99/62 (74) 99 08/16/19 00:00 30 08/16/19 00:00 Mechanical Ventilator Mechanical Ventilator 08/16/19 00:00 94 08/15/19 23:40 84 26 30 08/15/19 21:00 89 115/60 08/15/19 20:00 Mechanical Ventilator Mechanical Ventilator 08/15/19 20:00 98.8 89 28 115/60 (78) 99 08/15/19 20:00 30 08/15/19 19:52 92 08/15/19 19:32 88 26 30 08/15/19 18:00 98.2 99 26 119/72 (88) 100 08/15/19 16:00 98.2 99 26 89/52 (64) 100 08/15/19 16:00 Mechanical Ventilator Mechanical Ventilator 08/15/19 16:00 30 08/15/19 16:00 102 08/15/19 15:10 77 27 30 08/15/19 12:00 30 08/15/19 12:00 100 08/15/19 12:00 98.4 105 26 123/58 (79) 100 08/15/19 12:00 Mechanical Ventilator Mechanical Ventilator 08/15/19 11:10 102 26 30 Height (Feet): 6 Height (Inches): 1.00 Weight (Pounds): 171 HEENT: status post trach Respiratory/Chest: lungs clear, other - on ventilator Cardiovascular: normal rate, other - Permacath Abdomen: soft, non tender, other - GT & rectal tube Extremities: no edema Neurologic/Psychiatric: alert, responsive Microbiology Date/Time Source Procedure Growth Status 08/13/19 13:30 Blood Blood Culture - Preliminary NO GROWTH AFTER 48 HOURS Resulted 08/13/19 12:20 Blood Blood Culture - Final Staphylococcus Epidermidis Complete Laboratory Tests Test 08/15/19 20:26 08/16/19 05:18 08/16/19 05:31 POC Whole Blood Glucose 261 MG/DL (74-106) H 196 MG/DL (74-106) H White Blood Count 18.2 K/UL (4.8-10.8) H Red Blood Count 3.42 M/UL (4.70-6.10) L Hemoglobin 9.7 G/DL (14.2-18.0) L Hematocrit 32.8 % (42.0-52.0) L Mean Corpuscular Volume 96 FL (80-99) Mean Corpuscular Hemoglobin 28.4 PG (27.0-31.0) Mean Corpuscular Hemoglobin Concent 29.6 G/DL (32.0-36.0) L Red Cell Distribution Width 18.9 % (11.6-14.8) H Platelet Count 360 K/UL (150-450) Mean Platelet Volume 7.6 FL (6.5-10.1) Neutrophils (%) (Auto) % (45.0-75.0) Lymphocytes (%) (Auto) % (20.0-45.0) Monocytes (%) (Auto) % (1.0-10.0) Eosinophils (%) (Auto) % (0.0-3.0) Basophils (%) (Auto) % (0.0-2.0) Differential Total Cells Counted 100 Neutrophils % (Manual) 83 % (45-75) H Lymphocytes % (Manual) 12 % (20-45) L Monocytes % (Manual) 2 % (1-10) Eosinophils % (Manual) 3 % (0-3) Basophils % (Manual) 0 % (0-2) Band Neutrophils 0 % (0-8) Platelet Estimate Adequate Platelet Morphology Normal Polychromasia 1+ Hypochromasia 1+ Anisocytosis 1+ Sodium Level 145 MMOL/L (136-145) Potassium Level 5.0 MMOL/L (3.5-5.1) Chloride Level 101 MMOL/L (98-107) Carbon Dioxide Level 27 MMOL/L (21-32) Anion Gap 17 mmol/L (5-15) H Blood Urea Nitrogen 85 mg/dL (7-18) H Creatinine 8.0 MG/DL (0.55-1.30) H Estimat Glomerular Filtration Rate 6.8 mL/min (>60) Glucose Level 221 MG/DL (74-106) H Uric Acid 9.7 MG/DL (2.6-7.2) H Calcium Level 10.1 MG/DL (8.5-10.1) Phosphorus Level 3.4 MG/DL (2.5-4.9) Magnesium Level 2.4 MG/DL (1.8-2.4) Total Bilirubin 0.4 MG/DL (0.2-1.0) Aspartate Amino Transf (AST/SGOT) 19 U/L (15-37) Alanine Aminotransferase (ALT/SGPT) 14 U/L (12-78) Alkaline Phosphatase 158 U/L (46-116) H C-Reactive Protein, Quantitative 5.7 mg/dL (0.00-0.90) H Pro-B-Type Natriuretic Peptide 6480 pg/mL (0-125) H Total Protein 9.3 G/DL (6.4-8.2) H Albumin 3.4 G/DL (3.4-5.0) Globulin 5.9 g/dL Albumin/Globulin Ratio 0.6 (1.0-2.7) L Cortisol AM Sample Pending Random Vancomycin Level 27.2 ug/mL Current Medications Medications (Trade) Dose Ordered Sig/Anthony Route PRN Reason Start Time Stop Time Status Last Admin Dose Admin Acetaminophen (Tylenol) 650 mg Q4H PRN NG For Pain 08/04/19 21:38 09/03/19 21:37 08/15/19 14:24 Acetaminophen (Tylenol) 650 mg Q4H PRN NG Temp >100.5 08/15/19 13:30 09/08/19 08:29 Chlorhexidine Gluconate (Michelle-Hex 2%) 1 applic DAILY@2000 TOPIC 08/05/19 20:00 09/05/19 19:59 08/15/19 20:27 Dextrose (Dextrose 50%) 25 ml Q30M PRN IV Hypoglycemia 08/04/19 22:00 09/18/19 19:29 Dextrose (Dextrose 50%) 50 ml Q30M PRN IV Hypoglycemia 08/04/19 22:00 09/18/19 19:29 Enoxaparin Sodium (Lovenox) 30 mg DAILY SUBQ 08/05/19 09:00 08/27/19 08:59 08/16/19 08:51 Epoetin Aftab (Epoetin Aftab(ESRD on dialysis)) 10,000 unit FRI-FRI-FRI SUBQ 08/11/19 21:00 11/09/19 20:59 08/13/19 21:04 Fluconazole (Diflucan) 200 mg DAILY NG 08/13/19 10:24 08/20/19 10:23 08/16/19 08:50 Haloperidol Lactate 5 mg/ Dextrose 56 ml @ 224 mls/hr Q6H PRN IVPB Agitation 08/04/19 21:38 09/18/19 21:37 Hydralazine HCl (Apresoline) 10 mg Q4H PRN IV Blood pressure over 160 systol 08/04/19 21:39 11/02/19 21:38 Insulin Aspart (NovoLOG) EVERY 6 HOURS SUBQ 08/05/19 00:00 09/19/19 00:00 08/16/19 05:41 Loperamide HCl (Imodium) 2 mg Q6H PRN NG Diarrhea 08/11/19 10:15 09/10/19 10:14 08/14/19 14:15 Metoclopramide HCl (Reglan) 5 mg Q8HR IVP 08/05/19 06:00 09/04/19 05:59 08/16/19 05:41 Metoprolol Tartrate (Lopressor) 12.5 mg Q12HR NG 08/15/19 21:00 11/11/19 20:59 Midodrine (Pro-Amatine) 10 mg THREE TIMES A DAY 08/15/19 18:00 11/13/19 17:59 08/16/19 08:51 Pantoprazole (Protonix) 40 mg DAILY IVP 08/05/19 09:00 08/26/19 08:59 08/16/19 08:50 [facility] 1 ea DAILY PRN MISC Per rx protocol 08/15/19 08:45 09/14/19 08:44 Ted Leyva MD Aug 16, 2019 11:04
--- NOTE | 2019-08-16 11:30 | General Progress Note ---
Assessment/Plan Status: progressing, unchanged, deteriorating Assessment/Plan: 1. Diabetes. 2. Hypertension. 3. Coronary artery disease. 4. COPD. 5. Psychiatric disorder with schizophrenia. 6. History of hepatitis C. 7. HLP. 8. Chronic kidney disease, now with acute renal failure. 9. Anemia. 10. Hypothyroidism. 11. Spinal stenosis. 12. Constipation. 13. GERD. 14. COVID positive HD per nephrology fu labs icu care s/p PEG GTF TF at 40 cc prn imodium repeat C.diff ordered by ID monitor for residuals Subjective ROS Limited/Unobtainable: No Allergies: Coded Allergies: No Known Allergies (Unverified , 05/28/19) Objective Last 24 Hour Vital Signs Date Time Temp Pulse Resp B/P (MAP) Pulse Ox O2 Delivery O2 Flow Rate FiO2 08/16/19 10:39 86 33 30 30 08/16/19 08:50 90 112/71 08/16/19 08:00 88 08/16/19 07:24 86 27 30 30 08/16/19 07:16 82 26 30 08/16/19 04:00 30 08/16/19 04:00 97.8 100 28 105/70 (82) 99 08/16/19 04:00 Mechanical Ventilator Mechanical Ventilator 08/16/19 03:45 93 26 30 08/16/19 03:34 91 08/16/19 00:00 98.5 93 28 99/62 (74) 99 08/16/19 00:00 30 08/16/19 00:00 Mechanical Ventilator Mechanical Ventilator 08/16/19 00:00 94 08/15/19 23:40 84 26 30 08/15/19 21:00 89 115/60 08/15/19 20:00 Mechanical Ventilator Mechanical Ventilator 08/15/19 20:00 98.8 89 28 115/60 (78) 99 08/15/19 20:00 30 08/15/19 19:52 92 08/15/19 19:32 88 26 30 08/15/19 18:00 98.2 99 26 119/72 (88) 100 08/15/19 16:00 98.2 99 26 89/52 (64) 100 08/15/19 16:00 Mechanical Ventilator Mechanical Ventilator 08/15/19 16:00 30 08/15/19 16:00 102 08/15/19 15:10 77 27 30 7/5/20 12:00 30 08/15/19 12:00 100 08/15/19 12:00 98.4 105 26 123/58 (79) 100 08/15/19 12:00 Mechanical Ventilator Mechanical Ventilator Intake and Output 08/15/19 08/16/19 19:00 07:00 Intake Total 580 ml 440 ml Output Total 150 ml 130 ml Balance 430 ml 310 ml Free Water 100 ml Tube Feeding 480 ml 440 ml Stool Total 150 ml 130 ml Laboratory Tests 08/15/19 20:26: POC Whole Blood Glucose 261H 08/16/19 05:18: White Blood Count 18.2H, Red Blood Count 3.42L, Hemoglobin 9.7L, Hematocrit 32.8L, Mean Corpuscular Volume 96, Mean Corpuscular Hemoglobin 28.4, Mean Corpuscular Hemoglobin Concent 29.6L, Red Cell Distribution Width 18.9H, Platelet Count 360, Mean Platelet Volume 7.6, Neutrophils (%) (Auto) , Lymphocytes (%) (Auto) , Monocytes (%) (Auto) , Eosinophils (%) (Auto) , Basophils (%) (Auto) , Differential Total Cells Counted 100, Neutrophils % ( Manual) 83H, Lymphocytes % (Manual) 12L, Monocytes % (Manual) 2, Eosinophils % ( Manual) 3, Basophils % (Manual) 0, Band Neutrophils 0, Platelet Estimate Adequate, Platelet Morphology Normal, Polychromasia 1+, Hypochromasia 1+, Anisocytosis 1+, Sodium Level 145, Potassium Level 5.0, Chloride Level 101, Carbon Dioxide Level 27, Anion Gap 17H, Blood Urea Nitrogen 85H, Creatinine 8.0H , Estimat Glomerular Filtration Rate 6.8, Glucose Level 221H, Uric Acid 9.7H, Calcium Level 10.1, Phosphorus Level 3.4, Magnesium Level 2.4, Total Bilirubin 0.4, Aspartate Amino Transf (AST/SGOT) 19, Alanine Aminotransferase (ALT/SGPT) 14, Alkaline Phosphatase 158H, C-Reactive Protein, Quantitative 5.7H, Pro-B- Type Natriuretic Peptide 6480H, Total Protein 9.3H, Albumin 3.4, Globulin 5.9, Albumin/Globulin Ratio 0.6L, Cortisol AM Sample [Pending], Random Vancomycin Level 27.2 08/16/19 05:31: POC Whole Blood Glucose 196H Height (Feet): 6 Height (Inches): 1.00 Weight (Pounds): 171 General Appearance: no apparent distress EENT: normal ENT inspection Neck: supple Cardiovascular: normal rate Respiratory/Chest: decreased breath sounds Abdomen: normal bowel sounds, non tender, no organomegaly Extremities: non-tender Marito Ramires MD Aug 16, 2019 11:30
--- NOTE | 2019-08-16 11:58 | Surgery Progress Note ---
Surgery Progress Note Subjective Procedure Performed Left internal jugular temporary hemodialysis catheter removal Additional Comments discussed with ID 1/2 micro grew staph E plan cont abx repeat cultures in a few days Objective Last 24 Hour Vital Signs Date Time Temp Pulse Resp B/P (MAP) Pulse Ox O2 Delivery O2 Flow Rate FiO2 08/16/19 10:39 86 33 30 30 08/16/19 08:50 90 112/71 08/16/19 08:00 88 08/16/19 07:24 86 27 30 30 08/16/19 07:16 82 26 30 08/16/19 04:00 30 08/16/19 04:00 97.8 100 28 105/70 (82) 99 08/16/19 04:00 Mechanical Ventilator Mechanical Ventilator 08/16/19 03:45 93 26 30 08/16/19 03:34 91 08/16/19 00:00 98.5 93 28 99/62 (74) 99 08/16/19 00:00 30 08/16/19 00:00 Mechanical Ventilator Mechanical Ventilator 08/16/19 00:00 94 08/15/19 23:40 84 26 30 08/15/19 21:00 89 115/60 08/15/19 20:00 Mechanical Ventilator Mechanical Ventilator 08/15/19 20:00 98.8 89 28 115/60 (78) 99 08/15/19 20:00 30 08/15/19 19:52 92 08/15/19 19:32 88 26 30 08/15/19 18:00 98.2 99 26 119/72 (88) 100 08/15/19 16:00 98.2 99 26 89/52 (64) 100 08/15/19 16:00 Mechanical Ventilator Mechanical Ventilator 08/15/19 16:00 30 08/15/19 16:00 102 08/15/19 15:10 77 27 30 08/15/19 12:00 30 08/15/19 12:00 100 08/15/19 12:00 98.4 105 26 123/58 (79) 100 08/15/19 12:00 Mechanical Ventilator Mechanical Ventilator I&O Intake and Output 08/15/19 08/16/19 19:00 07:00 Intake Total 580 ml 440 ml Output Total 150 ml 130 ml Balance 430 ml 310 ml Free Water 100 ml Tube Feeding 480 ml 440 ml Stool Total 150 ml 130 ml Dressing: other Wound: other Drains: other Cardiovascular: RSR Respiratory: decreased breath sounds Abdomen: soft, non-tender, present bowel sounds Extremities: no cyanosis Laboratory Tests Test 08/15/19 20:26 08/16/19 05:18 08/16/19 05:31 POC Whole Blood Glucose 261 MG/DL (74-106) H 196 MG/DL (74-106) H White Blood Count 18.2 K/UL (4.8-10.8) H Red Blood Count 3.42 M/UL (4.70-6.10) L Hemoglobin 9.7 G/DL (14.2-18.0) L Hematocrit 32.8 % (42.0-52.0) L Mean Corpuscular Volume 96 FL (80-99) Mean Corpuscular Hemoglobin 28.4 PG (27.0-31.0) Mean Corpuscular Hemoglobin Concent 29.6 G/DL (32.0-36.0) L Red Cell Distribution Width 18.9 % (11.6-14.8) H Platelet Count 360 K/UL (150-450) Mean Platelet Volume 7.6 FL (6.5-10.1) Neutrophils (%) (Auto) % (45.0-75.0) Lymphocytes (%) (Auto) % (20.0-45.0) Monocytes (%) (Auto) % (1.0-10.0) Eosinophils (%) (Auto) % (0.0-3.0) Basophils (%) (Auto) % (0.0-2.0) Differential Total Cells Counted 100 Neutrophils % (Manual) 83 % (45-75) H Lymphocytes % (Manual) 12 % (20-45) L Monocytes % (Manual) 2 % (1-10) Eosinophils % (Manual) 3 % (0-3) Basophils % (Manual) 0 % (0-2) Band Neutrophils 0 % (0-8) Platelet Estimate Adequate Platelet Morphology Normal Polychromasia 1+ Hypochromasia 1+ Anisocytosis 1+ Sodium Level 145 MMOL/L (136-145) Potassium Level 5.0 MMOL/L (3.5-5.1) Chloride Level 101 MMOL/L (98-107) Carbon Dioxide Level 27 MMOL/L (21-32) Anion Gap 17 mmol/L (5-15) H Blood Urea Nitrogen 85 mg/dL (7-18) H Creatinine 8.0 MG/DL (0.55-1.30) H Estimat Glomerular Filtration Rate 6.8 mL/min (>60) Glucose Level 221 MG/DL (74-106) H Uric Acid 9.7 MG/DL (2.6-7.2) H Calcium Level 10.1 MG/DL (8.5-10.1) Phosphorus Level 3.4 MG/DL (2.5-4.9) Magnesium Level 2.4 MG/DL (1.8-2.4) Total Bilirubin 0.4 MG/DL (0.2-1.0) Aspartate Amino Transf (AST/SGOT) 19 U/L (15-37) Alanine Aminotransferase (ALT/SGPT) 14 U/L (12-78) Alkaline Phosphatase 158 U/L (46-116) H C-Reactive Protein, Quantitative 5.7 mg/dL (0.00-0.90) H Pro-B-Type Natriuretic Peptide 6480 pg/mL (0-125) H Total Protein 9.3 G/DL (6.4-8.2) H Albumin 3.4 G/DL (3.4-5.0) Globulin 5.9 g/dL Albumin/Globulin Ratio 0.6 (1.0-2.7) L Cortisol AM Sample Pending Random Vancomycin Level 27.2 ug/mL Plan Problems: (1) Suspected COVID-19 virus infection (2) HTN (hypertension) (3) CASSANDRA (acute kidney injury) Assessment & Plan: Needs urgent HD needs access patient okay and consented see note will follow with recs new line placed discussed with team and nephrology HD line functional when checked has TPA now please use appropriately Cathflo used again this flow during dialysis on 430 was low. Will monitor may need line change 5/4 plan for HD as per renal may need to take fluid off with HD edema anasarca dressings saturated and changed will monitor cont with HD IJ left line placed for HD given extent of prior line in place. leukocytosis blood cx negative may need to change out line new line okay HD going well Continue HD as tolerated May need pressors for HD as needed (4) Anemia in chronic kidney disease (CKD) (5) Anemia (6) Renal failure (7) Suspected COVID-19 virus infection Assessment & Plan: Pt deconditioned and despite all skin preventions Pt noted to have developed several pressure injuries. . Stable dry eschar noted to clefts of R and L ears. No erythema noted . DTPI noted to L trochanter. Base of injury is maroon in colour with marginal erythema along borders. Partially opened DTPI Sacrum, R and L Buttocks. Base of wound is maroon with two small open wounds L sacrum and L buttocks. Pt has an APM/MOMO Mattress overlay and is being positioned with pillows as per tolerance and within protocols. worsening despite medical efforts will cont to provide therapy Tx.Plan: Apply Cavilon Skin Barrier to both ears Daily and prn. Apply Moisture Barrier Paste to Sacrum,R and L Buttocks. Cover with Optifoam drsgs. Change every 3 days and PRN. Apply Cavilon Skin Barrier to R and L trochanter. Cover each site with Optifoam drsgs.Change every 7 days and PRN. Apply Cavilon Skin Barrier to both heels. Cover each heel with Optifoam drsg. Change every 7 days and prn. Off-load heels with pillow. Reposition at least every 2hours or as tolerated. APM/MOMO Mattress overlay. (8) COVID-19 Assessment & Plan: COVID + c diff negative febrile leukocytosis renal insufficiency see above cont resp care Rx as per ID worsening on vent support now cxr noted on pressors prognosis guarded repeat covid ++ weaning vent and pressors off slowly showing improvement slowly recovering will need trach as unable to wean vent safely [facility] consent obtained s/p trach pending peg worsening on levo max (9) Sepsis Assessment & Plan: worsening leukocytosis febrile on pressors discussed with ID. lines evaluated and clean. he is septic on pressors and needs central access in difficult venous access patient blood cultures negative will monitor temp HD cath out now with permacath left tlc still subclavian needed line c/d/i line negative c diff negative wbc resolved improved d/c planning febrile leukocytosis hold d/c infectious work up in place yeast in cultures fevers persistent fungemia abx as per ID hold on line removal cont abx repeat cx Yaniv Mast Aug 16, 2019 11:58
[2019-08-16 12:00] VITALS: BP 125/72
--- NOTE | 2019-08-16 12:24 | Hematology/Onc Progress Note ---
Assessment/Plan Assessment/Plan Assessment and Recs: # Anemia of chronic disease, likely related ot underlying kidney disease has [id number]++++++ --> hgb trend 9-->8-->7.3-->7.9-->6.8->9.5-->10->8.3-->7.7-->7.1-->8.9->8.8->7.7 -->8.1 ->7.9-->7.7 -->8.2-->8.1 -->7.9-->8.5 -->9->9.2-->9.5-->10.7 -->9.8--> 10.2-->11.8 -->11.9-->8.8 ->9.4->9-->8.3 -->8.5-->9.4->9.8-->9-->8.3-->11.6--> 10.8-->10.5-->10->9.7 --> transfuse as needed, hgb goal >7 --> no evidence of hemolysis --> peripheral smear has been reviewed --> epogen started 3 x a week ==>> transfuse 06/08, 06/15 # Leukocytosis likely related to suspected COVID-19 virus infection --> completed plaquenil --> trend smear as needed --> wbc trend: 4-->11-->14.5-->21-->26-->21->24--.28-->23-->19-->16.2-->21--> 11.2 -->12.5-->12.3-->12.4-->18.5-->18.5-->17->13-->18.2-->22.2-->25-->17.4-->17 -->14.2-->14-->16-->15.5-->9->17->11.5-->12->12-->18 --> pulm is aware --> on abx cefepime/vanc->zosyn/vanc-->dom/vanc-->dom-->levaquin/cefepime--> vanc/zosyn --> vanc --> pressors as needed --> 06/27 covid 19++ --> pressors as needed in icu --> c diff negative 08/08 --> blood cx++ # Thrombocytopenia/Lymphopenia --> likely related to covid19 --> plt 129k-->186k-->251-->285-->384 -->430-->539-->515-->447-->451-->404-->544 -->244 -->393 # Respiratory failure with covid19+ --> s/p vent/trach --> weaning # Possible Pneumonia --> abx completed --> 07/13 cxr: Improved right lung infiltrates. # Cardiomegaly # Transaminitis with Elevated AST # COPD # Chronic Kidney Disease --> per renal hd --> s/p right femoral cath 07/02 # Hypertension # peg # Dvt ppx lovenox Appreciate consultation and dw Rn Subjective Constitutional: Denies: no symptoms, chills, fever, malaise, weakness, other HEENT: Denies: no symptoms, eye pain, blurred vision, tearing, double vision, ear pain, ear discharge, nose pain, nose congestion, throat pain, throat swelling, mouth pain, mouth swelling, other Cardiovascular: Denies: no symptoms, chest pain, edema, irregular heart rate, lightheadedness, palpitations, syncope, other Respiratory: Denies: no symptoms, cough, shortness of breath, SOB with excertion, SOB at rest, sputum, wheezing, other Gastrointestinal/Abdominal: Denies: no symptoms, abdomen distended, abdominal pain, black stools, tarry stools, blood in stool, constipated, diarrhea, difficulty swallowing, nausea, poor appetite, poor fluid intake, rectal bleeding , vomiting, other Endocrine: Denies: no symptoms, excessive sweating, flushing, intolerance to cold, intolerance to heat, increased hunger, increased thirst, increased urine, unexplained weight gain, unexplained weight loss, other Allergies: Coded Allergies: No Known Allergies (Unverified , 05/28/19) Subjective 06/01 nv, extremely agitated, not allowing labs draws, no night sweats, cbc ordered 06/02 confused, restraints, on abx and plaquenil, hgb 7.9, nrb 15 L 06/03 is with nonrebreather, but not compliant, remains confused 06/05 no bleeding, labs noted, no major bleeding, otherwise comfortable 06/06 labs reviewed, no bleeding, meds noted, no night sweats, on levo and nonrebreather 06/07 labs noted, no bleeding, meds reviewed, no bleeding, wbc higher 06/08 to get 2 units prbc, no night sweats, meds reviewed 06/09 is on cefepime and vanc, labs noted, ernesto Rn, no bleeding 06/10 no major changes, labs reviewed, wbc 28k, on abx, cefepime 06/12 remains in icu, labs noted, no night sweats or bleeding 06/13 sluggish pupils, remains agitated, per psych, no bleding, on vent, wbc sitll high 06/14 still confused, remains on vent, with ng, running nepro, on pressors 06/15 icu, febrile, non verbal, hgb 7.1, blood pending, completed plaq 06/16 remains in the icu, nonverbal, plan for hd tomorrow, ernesto rn 06/17 in icu, on pressor, nonverbal, on abx, no bleeding 06/19 no bleeding, nonverbal in icu, hgb is 7.7 06/20 on zosyn, tube feeds, vent, labs noted, in icu, nv 06/21 gettng hd as per renal, in icu, nv, no bleeding, tfs 06/22 icu, cxr with slight improvement, cooling blanket, weaning today 06/23 wewaning, in icu, on vent, abx, and pressors as needed, labs noted 06/24 failed weaning, off abx, completed plaquenil, hgb 8.1 06/26 icu, weaning for this am, afebrile, hgb 8 06/27 in icu, remains comotose, weaning started on peep, no night sweats 06/28 weaning today, off abx, restraints, no distress, h/h stable 06/29 covid 19+, failed weaning, no blood transfusion needed 06/30 icu, on vent, labs reviewed, no distress 07/01 in icu, may need trach, remains on hd per renal, labs noted 07/02 s/p right fem cath, failed wean, no new orders, h/h stable 07/03 is somewhat more responsive, on abx, no bleeding, weaning and HD today 07/04 hd as per renal, weaning off vent, no bleeding today 07/05 obtunded, no bleding overnight, with hd for tomorrow noted, vanc 07/08 no events, remains with trach/vent, ernesto Rn, no bleeding, cbc is noted 07/09 no overnight events, peg for friday pending consent 07/10 off pressors, vent, restraints, labs reviewed 07/11 no acute events is on pressors, intubated, agitated still 07/12 is resting comfortably, no bleeding, emds reviewed and noted 07/13 icu, no events, trach, cxr reviewed, 07/14 is onv ent, tachypneic and tachycardic, labs noted 07/15 remains confused, intubated, ernesto Rn, no bleeding 07/17 icu, cxr improving infiltrates, levo gtt, airborne/contact isolation 07/18 is on broad spectrum abx, is on levaquin and cefepime, wbc 16 agitated 07/19 icu, levo gtt, cxr unchanged, tachy, hd thursday 07/20 sedated, safety restraints, labs reviewed 07/21 hd was done yesterday, lower pressor requirements, wbc is worse, on abx 07/22 icu, meds and labs reviewed, vent, no distress 07/24 on vent, in icu, labs noted, remains agitated, and confused 07/25 remains obtunded, on vent, on pressor, hgb 9, wbc elev 07/26 icu, levo gtt, vent, iv abx, nonverbal 07/27 failed weaning, labs reviewed, repeat covid swab pending 07/28 labs are noted, no bleeding, on vent/trach gtube feeds ernesto rn 07/29 iuc, restraints, no new changes, vent 07/31 is asleep, comfortable, no events, labs reviewed, restraints+ 08/01 no events, agitated, no bleeding, meds noted, on gtube feeds 08/02 remains on vent, no bleeding, wbc higher 19, hgb 9, on abx 08/03 labs noted, on vent, no bleeding, wbc 17, hgb better 08/04 labs reviewed, no bleeding, does not require prbc, on vent 08/05 more alert, is on trach, vent, no major events, no bleeding, peg+ 08/07 no bleeding no chills, no night sweats, is on vent/trach 08/08 recent covid swab negative, restraints, cxr unchanged 08/09 c diff negative, zosyn, hd today, gtf 08/10 no overnight events, labs reviewed, afebrile 08/11 labs reviewed, meds noted, no fc, no major changes, wbc 12 08/12 abx changed to flucon, on abx, wbc 12 08/14 bp on low end, blood cx++, vanc, vent 08/15 no bleeding, no night sweats, on abx, trach/vent Objective Objective Current Medications Medications (Trade) Dose Ordered Sig/Anthony Route PRN Reason Start Time Stop Time Status Last Admin Dose Admin Acetaminophen (Tylenol) 650 mg Q4H PRN NG For Pain 08/04/19 21:38 09/03/19 21:37 08/15/19 14:24 Acetaminophen (Tylenol) 650 mg Q4H PRN NG Temp >100.5 08/15/19 13:30 09/08/19 08:29 Albumin Human 100 ml @ 100 mls/hr ONCE IV 08/16/19 12:00 08/16/19 14:00 Chlorhexidine Gluconate (Michelle-Hex 2%) 1 applic DAILY@2000 TOPIC 08/05/19 20:00 09/05/19 19:59 08/15/19 20:27 Dextrose (Dextrose 50%) 25 ml Q30M PRN IV Hypoglycemia 08/04/19 22:00 09/18/19 19:29 Dextrose (Dextrose 50%) 50 ml Q30M PRN IV Hypoglycemia 08/04/19 22:00 09/18/19 19:29 Enoxaparin Sodium (Lovenox) 30 mg DAILY SUBQ 08/05/19 09:00 08/27/19 08:59 08/16/19 08:51 Epoetin Aftab (Epoetin Aftab(ESRD on dialysis)) 10,000 unit FRI-FRI-FRI SUBQ 08/11/19 21:00 11/09/19 20:59 08/13/19 21:04 Fluconazole (Diflucan) 200 mg DAILY NG 08/13/19 10:24 08/20/19 10:23 08/16/19 08:50 Haloperidol Lactate 5 mg/ Dextrose 56 ml @ 224 mls/hr Q6H PRN IVPB Agitation 08/04/19 21:38 09/18/19 21:37 Hydralazine HCl (Apresoline) 10 mg Q4H PRN IV Blood pressure over 160 systol 08/04/19 21:39 11/02/19 21:38 Insulin Aspart (NovoLOG) EVERY 6 HOURS SUBQ 08/05/19 00:00 09/19/19 00:00 08/16/19 12:14 Loperamide HCl (Imodium) 2 mg Q6H PRN NG Diarrhea 08/11/19 10:15 09/10/19 10:14 08/14/19 14:15 Metoclopramide HCl (Reglan) 5 mg Q8HR IVP 08/05/19 06:00 09/04/19 05:59 08/16/19 05:41 Metoprolol Tartrate (Lopressor) 12.5 mg Q12HR NG 08/15/19 21:00 11/11/19 20:59 Midodrine (Pro-Amatine) 10 mg THREE TIMES A DAY NG 08/15/19 18:00 11/13/19 17:59 08/16/19 12:15 Pantoprazole (Protonix) 40 mg DAILY IVP 08/05/19 09:00 08/26/19 08:59 08/16/19 08:50 Vancomycin HCl (Vanco pharmacy to dose) 1 ea DAILY PRN MISC Per rx protocol 08/15/19 08:45 09/14/19 08:44 Last 24 Hour Vital Signs Date Time Temp Pulse Resp B/P (MAP) Pulse Ox O2 Delivery O2 Flow Rate FiO2 08/16/19 10:39 86 33 30 30 08/16/19 08:50 90 112/71 08/16/19 08:00 88 08/16/19 07:24 86 27 30 30 08/16/19 07:16 82 26 30 08/16/19 04:00 30 08/16/19 04:00 97.8 100 28 105/70 (82) 99 08/16/19 04:00 Mechanical Ventilator Mechanical Ventilator 08/16/19 03:45 93 26 30 08/16/19 03:34 91 08/16/19 00:00 98.5 93 28 99/62 (74) 99 08/16/19 00:00 30 08/16/19 00:00 Mechanical Ventilator Mechanical Ventilator 08/16/19 00:00 94 08/15/19 23:40 84 26 30 08/15/19 21:00 89 115/60 08/15/19 20:00 Mechanical Ventilator Mechanical Ventilator 08/15/19 20:00 98.8 89 28 115/60 (78) 99 08/15/19 20:00 30 08/15/19 19:52 92 08/15/19 19:32 88 26 30 08/15/19 18:00 98.2 99 26 119/72 (88) 100 08/15/19 16:00 98.2 99 26 89/52 (64) 100 08/15/19 16:00 Mechanical Ventilator Mechanical Ventilator 08/15/19 16:00 30 08/15/19 16:00 102 08/15/19 15:10 77 27 30 08/15/19 12:00 30 08/15/19 12:00 100 08/15/19 12:00 98.4 105 26 123/58 (79) 100 08/15/19 12:00 Mechanical Ventilator Mechanical Ventilator 08/15/19 11:10 102 26 30 08/15/19 09:42 104 08/15/19 09:05 100 08/15/19 08:51 103 101/73 08/15/19 08:00 Mechanical Ventilator Mechanical Ventilator 08/15/19 08:00 30 08/15/19 08:00 98.4 102 26 108/73 (85) 100 08/15/19 07:10 103 26 30 08/15/19 04:00 99.5 99 26 100/64 (76) 100 08/15/19 04:00 30 08/15/19 04:00 Mechanical Ventilator Mechanical Ventilator 08/15/19 03:47 106 08/15/19 03:13 101 30 30 08/15/19 00:00 97.3 87 26 101/63 (76) 100 08/15/19 00:00 Mechanical Ventilator Mechanical Ventilator 08/14/19 23:59 106 08/14/19 22:16 87 26 30 08/14/19 21:01 116 116/68 08/14/19 20:00 30 08/14/19 20:00 Mechanical Ventilator Mechanical Ventilator 08/14/19 20:00 98.6 116 26 116/68 (84) 100 08/14/19 19:35 104 29 30 08/14/19 19:21 117 08/14/19 16:05 115 08/14/19 16:00 99.3 117 26 127/70 (89) 100 08/14/19 16:00 Mechanical Ventilator Mechanical Ventilator 08/14/19 16:00 30 08/14/19 15:27 111 26 30 Intake and Output 08/15/19 08/16/19 19:00 07:00 Intake Total 580 ml 440 ml Output Total 150 ml 130 ml Balance 430 ml 310 ml Free Water 100 ml Tube Feeding 480 ml 440 ml Stool Total 150 ml 130 ml Labs Test 08/13/19 16:40 08/13/19 19:20 08/13/19 23:30 08/14/19 03:35 POC Whole Blood Glucose 299 MG/DL (74-106) 256 MG/DL (74-106) Sodium Level 142 MMOL/L (136-145) 144 MMOL/L (136-145) Potassium Level 3.3 MMOL/L (3.5-5.1) 3.3 MMOL/L (3.5-5.1) Chloride Level 98 MMOL/L (98-107) 98 MMOL/L (98-107) Carbon Dioxide Level 29 MMOL/L (21-32) 29 MMOL/L (21-32) Anion Gap 15 mmol/L (5-15) 17 mmol/L (5-15) Blood Urea Nitrogen 37 mg/dL (7-18) 50 mg/dL (7-18) Creatinine 4.4 MG/DL (0.55-1.30) 5.1 MG/DL (0.55-1.30) Estimat Glomerular Filtration Rate 13.5 mL/min (>60) 11.4 mL/min (>60) Glucose Level 238 MG/DL (74-106) 260 MG/DL (74-106) Calcium Level 9.5 MG/DL (8.5-10.1) 9.4 MG/DL (8.5-10.1) Total Bilirubin 0.4 MG/DL (0.2-1.0) 0.4 MG/DL (0.2-1.0) Aspartate Amino Transf (AST/SGOT) 20 U/L (15-37) 21 U/L (15-37) Alanine Aminotransferase (ALT/SGPT) 17 U/L (12-78) 13 U/L (12-78) Alkaline Phosphatase 133 U/L (46-116) 138 U/L (46-116) Total Protein 10.2 G/DL (6.4-8.2) 10.0 G/DL (6.4-8.2) Albumin 3.8 G/DL (3.4-5.0) 3.7 G/DL (3.4-5.0) Globulin 6.4 g/dL 6.3 g/dL Albumin/Globulin Ratio 0.6 (1.0-2.7) 0.6 (1.0-2.7) White Blood Count 16.5 K/UL (4.8-10.8) Red Blood Count 3.46 M/UL (4.70-6.10) Hemoglobin 9.9 G/DL (14.2-18.0) Hematocrit 32.8 % (42.0-52.0) Mean Corpuscular Volume 95 FL (80-99) Mean Corpuscular Hemoglobin 28.6 PG (27.0-31.0) Mean Corpuscular Hemoglobin Concent 30.2 G/DL (32.0-36.0) Red Cell Distribution Width 17.6 % (11.6-14.8) Platelet Count 346 K/UL (150-450) Mean Platelet Volume 7.8 FL (6.5-10.1) Neutrophils (%) (Auto) 76.8 % (45.0-75.0) Lymphocytes (%) (Auto) 14.1 % (20.0-45.0) Monocytes (%) (Auto) 6.4 % (1.0-10.0) Eosinophils (%) (Auto) 2.1 % (0.0-3.0) Basophils (%) (Auto) 0.7 % (0.0-2.0) Phosphorus Level 2.1 MG/DL (2.5-4.9) Magnesium Level 2.2 MG/DL (1.8-2.4) C-Reactive Protein, Quantitative 6.7 mg/dL (0.00-0.90) Pro-B-Type Natriuretic Peptide 8970 pg/mL (0-125) Test 08/14/19 05:46 08/14/19 11:36 08/14/19 16:59 08/15/19 04:50 POC Whole Blood Glucose 162 MG/DL (74-106) 259 MG/DL (74-106) Test 08/15/19 20:26 08/16/19 05:18 08/16/19 05:31 POC Whole Blood Glucose 261 MG/DL (74-106) 196 MG/DL (74-106) White Blood Count 18.2 K/UL (4.8-10.8) Red Blood Count 3.42 M/UL (4.70-6.10) Hemoglobin 9.7 G/DL (14.2-18.0) Hematocrit 32.8 % (42.0-52.0) Mean Corpuscular Volume 96 FL (80-99) Mean Corpuscular Hemoglobin 28.4 PG (27.0-31.0) Mean Corpuscular Hemoglobin Concent 29.6 G/DL (32.0-36.0) Red Cell Distribution Width 18.9 % (11.6-14.8) Platelet Count 360 K/UL (150-450) Mean Platelet Volume 7.6 FL (6.5-10.1) Neutrophils (%) (Auto) % (45.0-75.0) Lymphocytes (%) (Auto) % (20.0-45.0) Monocytes (%) (Auto) % (1.0-10.0) Eosinophils (%) (Auto) % (0.0-3.0) Basophils (%) (Auto) % (0.0-2.0) Differential Total Cells Counted 100 Neutrophils % (Manual) 83 % (45-75) Lymphocytes % (Manual) 12 % (20-45) Monocytes % (Manual) 2 % (1-10) Eosinophils % (Manual) 3 % (0-3) Basophils % (Manual) 0 % (0-2) Band Neutrophils 0 % (0-8) Platelet Estimate Adequate Platelet Morphology Normal Polychromasia 1+ Hypochromasia 1+ Anisocytosis 1+ Sodium Level 145 MMOL/L (136-145) Potassium Level 5.0 MMOL/L (3.5-5.1) Chloride Level 101 MMOL/L (98-107) Carbon Dioxide Level 27 MMOL/L (21-32) Anion Gap 17 mmol/L (5-15) Blood Urea Nitrogen 85 mg/dL (7-18) Creatinine 8.0 MG/DL (0.55-1.30) Estimat Glomerular Filtration Rate 6.8 mL/min (>60) Glucose Level 221 MG/DL (74-106) Uric Acid 9.7 MG/DL (2.6-7.2) Calcium Level 10.1 MG/DL (8.5-10.1) Phosphorus Level 3.4 MG/DL (2.5-4.9) Magnesium Level 2.4 MG/DL (1.8-2.4) Total Bilirubin 0.4 MG/DL (0.2-1.0) Aspartate Amino Transf (AST/SGOT) 19 U/L (15-37) Alanine Aminotransferase (ALT/SGPT) 14 U/L (12-78) Alkaline Phosphatase 158 U/L (46-116) C-Reactive Protein, Quantitative 5.7 mg/dL (0.00-0.90) Pro-B-Type Natriuretic Peptide 6480 pg/mL (0-125) Total Protein 9.3 G/DL (6.4-8.2) Albumin 3.4 G/DL (3.4-5.0) Globulin 5.9 g/dL Albumin/Globulin Ratio 0.6 (1.0-2.7) Random Vancomycin Level 27.2 ug/mL Height (Feet): 6 Height (Inches): 1.00 Weight (Pounds): 171 Objective General: nv, confused, sedated Heent: bilateral eye normal inspection, bilateral eye PERRL ++Ng Respiratory: normal breath sounds, no respiratory distress, intubated/vent +++ trach+++ Cardiovascular: regular rate, rhythm, no edema Gastrointestinal: normal inspection, soft, non-distended, peg+ Rectal: deferred Musculoskeletal: normal range of motion, non-tender, R fem cath++ Neurologic: alert, motor strength/tone normal, sensory intact, responsive, speech normal Skin: Decubitus/Ulcer - See RN skin exam. : jamaal+ Greg Cabral MD Aug 16, 2019 12:24
--- NOTE | 2019-08-16 15:29 | Cardiac Electrophysiology PN ---
Assessment/Plan Assessment/Plan 1. NSTEMI type 2. Low level and flat due to renal failure. On Aspirin. EF 60%. On Lopressor 25 bid 2. S/P Septic shock. On Abx. 3. ESRD, on HD per Dr. Cole. S/P PermCath placement by IR 4. VDRF due to COVID pneumonia. S/P Tracheostomy 07/08/19. 5. Atrial fib with RVR. On Lopressor 25 bid 6. Dysphagia, S/P PEG 07/13/19 7. COPD. 8. Anemia. DW RN Subjective Subjective In SDU on the vent via trach. Off pressors. Fio2 30% Covid positive x 10. Had atrial fib with RVR 130s. Off isolation getting HD Objective Last 24 Hour Vital Signs Date Time Temp Pulse Resp B/P (MAP) Pulse Ox O2 Delivery O2 Flow Rate FiO2 08/16/19 12:00 30 08/16/19 12:00 Mechanical Ventilator Mechanical Ventilator 08/16/19 12:00 85 08/16/19 12:00 98.1 84 28 125/72 (89) 99 08/16/19 10:39 86 33 30 30 08/16/19 08:50 90 112/71 08/16/19 08:00 Mechanical Ventilator Mechanical Ventilator 08/16/19 08:00 30 08/16/19 08:00 97.0 87 28 122/47 (72) 98 08/16/19 08:00 88 08/16/19 07:24 86 27 30 30 08/16/19 07:16 82 26 30 08/16/19 04:00 30 08/16/19 04:00 97.8 100 28 105/70 (82) 99 08/16/19 04:00 Mechanical Ventilator Mechanical Ventilator 08/16/19 03:45 93 26 30 08/16/19 03:34 91 08/16/19 00:00 98.5 93 28 99/62 (74) 99 08/16/19 00:00 30 08/16/19 00:00 Mechanical Ventilator Mechanical Ventilator 08/16/19 00:00 94 08/15/19 23:40 84 26 30 08/15/19 21:00 89 115/60 08/15/19 20:00 Mechanical Ventilator Mechanical Ventilator 08/15/19 20:00 98.8 89 28 115/60 (78) 99 08/15/19 20:00 30 08/15/19 19:52 92 08/15/19 19:32 88 26 30 08/15/19 18:00 98.2 99 26 119/72 (88) 100 08/15/19 16:00 98.2 99 26 89/52 (64) 100 08/15/19 16:00 Mechanical Ventilator Mechanical Ventilator 08/15/19 16:00 30 08/15/19 16:00 102 Intake and Output 08/15/19 08/16/19 19:00 07:00 Intake Total 580 ml 440 ml Output Total 150 ml 130 ml Balance 430 ml 310 ml Free Water 100 ml Tube Feeding 480 ml 440 ml Stool Total 150 ml 130 ml Laboratory Tests Test 08/15/19 20:26 08/16/19 05:18 08/16/19 05:31 POC Whole Blood Glucose 261 MG/DL (74-106) H 196 MG/DL (74-106) H White Blood Count 18.2 K/UL (4.8-10.8) H Red Blood Count 3.42 M/UL (4.70-6.10) L Hemoglobin 9.7 G/DL (14.2-18.0) L Hematocrit 32.8 % (42.0-52.0) L Mean Corpuscular Volume 96 FL (80-99) Mean Corpuscular Hemoglobin 28.4 PG (27.0-31.0) Mean Corpuscular Hemoglobin Concent 29.6 G/DL (32.0-36.0) L Red Cell Distribution Width 18.9 % (11.6-14.8) H Platelet Count 360 K/UL (150-450) Mean Platelet Volume 7.6 FL (6.5-10.1) Neutrophils (%) (Auto) % (45.0-75.0) Lymphocytes (%) (Auto) % (20.0-45.0) Monocytes (%) (Auto) % (1.0-10.0) Eosinophils (%) (Auto) % (0.0-3.0) Basophils (%) (Auto) % (0.0-2.0) Differential Total Cells Counted 100 Neutrophils % (Manual) 83 % (45-75) H Lymphocytes % (Manual) 12 % (20-45) L Monocytes % (Manual) 2 % (1-10) Eosinophils % (Manual) 3 % (0-3) Basophils % (Manual) 0 % (0-2) Band Neutrophils 0 % (0-8) Platelet Estimate Adequate Platelet Morphology Normal Polychromasia 1+ Hypochromasia 1+ Anisocytosis 1+ Sodium Level 145 MMOL/L (136-145) Potassium Level 5.0 MMOL/L (3.5-5.1) Chloride Level 101 MMOL/L (98-107) Carbon Dioxide Level 27 MMOL/L (21-32) Anion Gap 17 mmol/L (5-15) H Blood Urea Nitrogen 85 mg/dL (7-18) H Creatinine 8.0 MG/DL (0.55-1.30) H Estimat Glomerular Filtration Rate 6.8 mL/min (>60) Glucose Level 221 MG/DL (74-106) H Uric Acid 9.7 MG/DL (2.6-7.2) H Calcium Level 10.1 MG/DL (8.5-10.1) Phosphorus Level 3.4 MG/DL (2.5-4.9) Magnesium Level 2.4 MG/DL (1.8-2.4) Total Bilirubin 0.4 MG/DL (0.2-1.0) Aspartate Amino Transf (AST/SGOT) 19 U/L (15-37) Alanine Aminotransferase (ALT/SGPT) 14 U/L (12-78) Alkaline Phosphatase 158 U/L (46-116) H C-Reactive Protein, Quantitative 5.7 mg/dL (0.00-0.90) H Pro-B-Type Natriuretic Peptide 6480 pg/mL (0-125) H Total Protein 9.3 G/DL (6.4-8.2) H Albumin 3.4 G/DL (3.4-5.0) Globulin 5.9 g/dL Albumin/Globulin Ratio 0.6 (1.0-2.7) L Cortisol AM Sample Pending Random Vancomycin Level 27.2 ug/mL Objective HEAD AND NECK: No JVD. Tracheostomy in place. Left IJ HD catheter now in place. Right IJ PermCath in place LUNGS: Decreased breath sounds. CARDIOVASCULAR: Regular S1 and S2. Tachycardic. ABDOMEN: Soft. PEG in place EXTREMITIES: No pitting edema. Gio Baker MD Aug 16, 2019 15:29
[2019-08-16 16:00] VITALS: BP 110/56
[2019-08-16 20:00] VITALS: BP 120/70
[2019-08-16] MEDS: Dyna-Hex 2% Top Sol 2oz TOPIC SCH (20:12)
[2019-08-16] MEDS: Epoetin Alfa-EPBX(ESRD on dialysis)10,000 unit/ml vial SUBQ SCH (21:58)
--- NOTE | 2019-08-16 22:39 | General Progress Note ---
Assessment/Plan Problem List: (1) HTN (hypertension) ICD Codes: I10 - Essential (primary) hypertension SNOMED: 73391929 (2) CASSANDRA (acute kidney injury) ICD Codes: N17.9 - Acute kidney failure, unspecified SNOMED: 0713545, 99892424 (3) Anemia in chronic kidney disease (CKD) ICD Codes: N18.9 - Chronic kidney disease, unspecified; D63.1 - Anemia in chronic kidney disease SNOMED: 076493723 (4) Renal failure ICD Codes: N19 - Unspecified kidney failure SNOMED: 91527633 (5) Respiratory failure requiring intubation ICD Codes: J96.90 - Respiratory failure, unspecified, unspecified whether with hypoxia or hypercapnia; A41.89 - Other specified sepsis SNOMED: 080412928, 354602510 (6) Pneumonia due to COVID-19 virus ICD Codes: U07.1 - COVID-19; J12.89 - Other viral pneumonia SNOMED: 659785188, 160989364 (7) Sepsis due to severe acute respiratory syndrome coronavirus 2 (SARS-CoV-2) ICD Codes: U07.1 - COVID-19; A41.89 - Other specified sepsis SNOMED: 554531254, 829594021 Status: progressing, unchanged, deteriorating Assessment/Plan: worsening leukocytosis trach and peg sepsis pna h/o covid positive now is negative vitals stable Subjective ROS Limited/Unobtainable: Yes Allergies: Coded Allergies: No Known Allergies (Unverified , 05/28/19) Objective Last 24 Hour Vital Signs Date Time Temp Pulse Resp B/P (MAP) Pulse Ox O2 Delivery O2 Flow Rate FiO2 08/16/19 20:12 65 120/70 08/16/19 19:54 90 26 30 08/16/19 16:00 30 08/16/19 16:00 90 08/16/19 16:00 98.1 87 28 110/56 (74) 100 08/16/19 16:00 Mechanical Ventilator Mechanical Ventilator 08/16/19 15:47 97 08/16/19 15:39 90 27 30 08/16/19 12:00 30 08/16/19 12:00 Mechanical Ventilator Mechanical Ventilator 08/16/19 12:00 85 08/16/19 12:00 98.1 84 28 125/72 (89) 99 08/16/19 10:39 86 33 30 30 08/16/19 08:50 90 112/71 08/16/19 08:00 Mechanical Ventilator Mechanical Ventilator 08/16/19 08:00 30 08/16/19 08:00 97.0 87 28 122/47 (72) 98 08/16/19 08:00 88 08/16/19 07:24 86 27 30 30 08/16/19 07:16 82 26 30 08/16/19 04:00 30 08/16/19 04:00 97.8 100 28 105/70 (82) 99 08/16/19 04:00 Mechanical Ventilator Mechanical Ventilator 08/16/19 03:45 93 26 30 08/16/19 03:34 91 08/16/19 00:00 98.5 93 28 99/62 (74) 99 08/16/19 00:00 30 08/16/19 00:00 Mechanical Ventilator Mechanical Ventilator 08/16/19 00:00 94 08/15/19 23:40 84 26 30 Intake and Output 08/15/19 08/16/19 19:00 07:00 Intake Total 580 ml 530 ml Output Total 150 ml 130 ml Balance 430 ml 400 ml Free Water 100 ml 50 ml Tube Feeding 480 ml 480 ml Stool Total 150 ml 130 ml Laboratory Tests 08/16/19 05:18: White Blood Count 18.2H, Red Blood Count 3.42L, Hemoglobin 9.7L, Hematocrit 32.8L, Mean Corpuscular Volume 96, Mean Corpuscular Hemoglobin 28.4, Mean Corpuscular Hemoglobin Concent 29.6L, Red Cell Distribution Width 18.9H, Platelet Count 360, Mean Platelet Volume 7.6, Neutrophils (%) (Auto) , Lymphocytes (%) (Auto) , Monocytes (%) (Auto) , Eosinophils (%) (Auto) , Basophils (%) (Auto) , Differential Total Cells Counted 100, Neutrophils % ( Manual) 83H, Lymphocytes % (Manual) 12L, Monocytes % (Manual) 2, Eosinophils % ( Manual) 3, Basophils % (Manual) 0, Band Neutrophils 0, Platelet Estimate Adequate, Platelet Morphology Normal, Polychromasia 1+, Hypochromasia 1+, Anisocytosis 1+, Sodium Level 145, Potassium Level 5.0, Chloride Level 101, Carbon Dioxide Level 27, Anion Gap 17H, Blood Urea Nitrogen 85H, Creatinine 8.0H , Estimat Glomerular Filtration Rate 6.8, Glucose Level 221H, Uric Acid 9.7H, Calcium Level 10.1, Phosphorus Level 3.4, Magnesium Level 2.4, Total Bilirubin 0.4, Aspartate Amino Transf (AST/SGOT) 19, Alanine Aminotransferase (ALT/SGPT) 14, Alkaline Phosphatase 158H, C-Reactive Protein, Quantitative 5.7H, Pro-B- Type Natriuretic Peptide 6480H, Total Protein 9.3H, Albumin 3.4, Globulin 5.9, Albumin/Globulin Ratio 0.6L, Cortisol AM Sample [Pending], Random Vancomycin Level 27.2 08/16/19 05:31: POC Whole Blood Glucose 196H 08/16/19 17:18: POC Whole Blood Glucose [Pending] Height (Feet): 6 Height (Inches): 1.00 Weight (Pounds): 171 Karishma Mulligan MD Aug 16, 2019 22:39
--- NOTE | 2019-08-16 23:59 | Pulmonolgy Critical Care Note ---
Critical Care - Asmt/Plan Assessment/Plan: Pulmonary Progress Note HPI: Patient is a 68 year old man, residential resident, admitted c/o shortness of breath, cough, noted to have Covid 19 Pneumonia, Respiratory Failure Remains on Ventilator, CXR infiltrates stable 7/2 Anemia CKD on HD - on Mitodrine, not tolerating weaning, will need eventual placement, second consecutive repeat COVID19 test negative Preserved EF FIO2 30%, P5, adequate O2 sats, remains on ACVC, tolerated CPAP PS 10, s/p Tracheostomy previously, sp PEG Fevers today, line removed On AB per ID for coagulase negative staph MRSA sputum Seen earlier Past Medical History: COPD, CKD, Hypertension, Anemia Allergies: No Known Allergies Improving Pulmonary Status on HD Physical Exam Vital Signs Noted Stable on ventilator Chronically ill appearing HEENT: Trach CDI Chest: CTAB Hreart: HS1, HS2, RRR Abdomen: SNTND, Gtube Extremities: Wasted, no edema [employer]CH[employer]Y [employer]:No focal signs Impression: COVID-19 virus infection Pneumonia Respiratory failure on ventilator, wean as tolerated once off pressors CKD - on HD Hypotension on pressors previously Cardiomegaly Leukocytosis Elevated AST COPD Chronic Kidney Disease - HD H/o Hypertension Worsening anemia sepsis sinus tachycardia Plan: trach care as is Antibiotics per ID HD per renal monitor vitals AC -joseph as tolerated anxiolytics if needed 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 if needed; Monitor lab data nutrition feeds Hemodialysis per Renal impression, plan, and exam edited and reviewed in detail care discussed with RN Laboratory Tests Noted: CXR: Hypoventilatory exam, interstitial changes, cardiomegaly, improving infiltrates Subjective ROS Limited/Unobtainable: No Constitutional: Denies: fever Respiratory: Reports: dry cough, shortness of breath Gastrointestinal/Abdominal: Reports: diarrhea, other - colace was stopped Psychiatric: Reports: other - refuses labs Allergies: Coded Allergies: No Known Allergies (Unverified , 05/28/19) All Systems: reviewed and negative except above Labs noted Critical Care - Objective Last 24 Hour Vital Signs Date Time Temp Pulse Resp B/P (MAP) Pulse Ox O2 Delivery O2 Flow Rate FiO2 08/16/19 22:53 68 26 30 08/16/19 20:12 65 120/70 08/16/19 19:54 76 26 30 08/16/19 16:00 30 08/16/19 16:00 90 08/16/19 16:00 98.1 87 28 110/56 (74) 100 08/16/19 16:00 Mechanical Ventilator Mechanical Ventilator 08/16/19 15:47 97 08/16/19 15:39 90 27 30 08/16/19 12:00 30 08/16/19 12:00 Mechanical Ventilator Mechanical Ventilator 08/16/19 12:00 85 08/16/19 12:00 98.1 84 28 125/72 (89) 99 08/16/19 10:39 86 33 30 30 08/16/19 08:50 90 112/71 08/16/19 08:00 Mechanical Ventilator Mechanical Ventilator 08/16/19 08:00 30 08/16/19 08:00 97.0 87 28 122/47 (72) 98 08/16/19 08:00 88 08/16/19 07:24 86 27 30 30 08/16/19 07:16 82 26 30 08/16/19 04:00 30 08/16/19 04:00 97.8 100 28 105/70 (82) 99 08/16/19 04:00 Mechanical Ventilator Mechanical Ventilator 08/16/19 03:45 93 26 30 08/16/19 03:34 91 08/16/19 00:00 98.5 93 28 99/62 (74) 99 08/16/19 00:00 30 08/16/19 00:00 Mechanical Ventilator Mechanical Ventilator 08/16/19 00:00 94 Accucheck: 194 Critical Care - Subjective ROS Limited/Unobtainable: No FI02: 30 Vent Support Breath Rate: 26 Vent Support Mode: AC Vent Tidal Volume: 500 Sputum Amount: Small PEEP: 5.0 PIP: 26 Tube Feeding Amount: 40 I&O: Intake and Output 08/15/19 08/16/19 19:00 07:00 Intake Total 580 ml 530 ml Output Total 150 ml 130 ml Balance 430 ml 400 ml Free Water 100 ml 50 ml Tube Feeding 480 ml 480 ml Stool Total 150 ml 130 ml ET-Tube: 7.5 ET Position: 24 Arturo Mckeon MD Aug 16, 2019 23:59
[2019-08-17] VITALS (7 sets, daily range): BP systolic 83–106; BP diastolic 59–64
[2019-08-17] MEDS: Metoclopramide 10mg/2ml Inj IVP SCH ×3 (06:14→22:48)
[2019-08-17] MEDS: NovoLOG Insulin Flexpen SUBQ SCH ×4 (06:17→23:37)
[2019-08-17] MEDS: Pantoprazole Inj IVP SCH (08:05)
[2019-08-17] MEDS: Metoprolol Tartrate 12.5mg TAB NG SCH (08:05)
[2019-08-17] MEDS: Fluconazole 100mg tab NG SCH (08:05)
[2019-08-17] MEDS: Enoxaparin 30mg Inj SUBQ SCH (08:06)
[2019-08-17] MEDS: Midodrine 10mg tab NG SCH ×3 (08:06→17:35)
--- NOTE | 2019-08-17 10:16 | Surgery Progress Note ---
Surgery Progress Note Subjective Procedure Performed Left internal jugular temporary hemodialysis catheter removal Additional Comments repeat blood cultures grew out yeast worsening leukocytosis no n/v Objective Last 24 Hour Vital Signs Date Time Temp Pulse Resp B/P (MAP) Pulse Ox O2 Delivery O2 Flow Rate FiO2 08/17/19 09:08 72 29 30 30 08/17/19 08:05 80 91/54 08/17/19 08:00 98.1 77 18 83/59 (67) 100 08/17/19 08:00 79 08/17/19 07:01 84 26 30 08/17/19 04:00 Mechanical Ventilator Mechanical Ventilator 08/17/19 04:00 30 08/17/19 04:00 80 08/17/19 04:00 98.7 85 28 88/62 (71) 99 08/17/19 03:51 79 26 30 08/17/19 00:00 Mechanical Ventilator Mechanical Ventilator 08/17/19 00:00 30 08/17/19 00:00 98.2 90 28 98/64 (75) 100 08/17/19 00:00 70 08/16/19 22:53 68 26 30 08/16/19 20:12 65 120/70 08/16/19 20:00 Mechanical Ventilator Mechanical Ventilator 08/16/19 20:00 98.5 95 28 120/70 (87) 100 08/16/19 20:00 87 08/16/19 20:00 30 08/16/19 19:54 76 26 30 08/16/19 16:00 30 08/16/19 16:00 90 08/16/19 16:00 98.1 87 28 110/56 (74) 100 08/16/19 16:00 Mechanical Ventilator Mechanical Ventilator 08/16/19 15:47 97 08/16/19 15:39 90 27 30 08/16/19 12:00 30 08/16/19 12:00 Mechanical Ventilator Mechanical Ventilator 08/16/19 12:00 85 08/16/19 12:00 98.1 84 28 125/72 (89) 99 08/16/19 10:39 86 33 30 30 I&O Intake and Output 08/16/19 08/17/19 19:00 07:00 Intake Total 530 ml 540 ml Output Total 100 ml Balance 430 ml 540 ml Free Water 50 ml 100 ml Tube Feeding 480 ml 440 ml Stool Total 100 ml Hemodialysis UF 0 ml Dressing: other Wound: other Drains: other Cardiovascular: RSR Respiratory: decreased breath sounds Abdomen: soft, non-tender, present bowel sounds Extremities: no cyanosis Laboratory Tests Test 08/16/19 17:18 08/17/19 03:20 POC Whole Blood Glucose Pending Random Vancomycin Level 23.6 ug/mL Plan Problems: (1) Suspected COVID-19 virus infection (2) HTN (hypertension) (3) CASSANDRA (acute kidney injury) Assessment & Plan: Needs urgent HD needs access patient okay and consented see note will follow with recs new line placed discussed with team and nephrology HD line functional when checked has TPA now please use appropriately Cathflo used again this flow during dialysis on 430 was low. Will monitor may need line change / plan for HD as per renal may need to take fluid off with HD edema anasarca dressings saturated and changed will monitor cont with HD IJ left line placed for HD given extent of prior line in place. leukocytosis blood cx negative may need to change out line new line okay HD going well Continue HD as tolerated May need pressors for HD as needed (4) Anemia in chronic kidney disease (CKD) (5) Anemia (6) Renal failure (7) Suspected COVID-19 virus infection Assessment & Plan: Pt deconditioned and despite all skin preventions Pt noted to have developed several pressure injuries. . Stable dry eschar noted to clefts of R and L ears. No erythema noted . DTPI noted to L trochanter. Base of injury is maroon in colour with marginal erythema along borders. Partially opened DTPI Sacrum, R and L Buttocks. Base of wound is maroon with two small open wounds L sacrum and L buttocks. Pt has an APM/MOMO Mattress overlay and is being positioned with pillows as per tolerance and within protocols. worsening despite medical efforts will cont to provide therapy Tx.Plan: Apply Cavilon Skin Barrier to both ears Daily and prn. Apply Moisture Barrier Paste to Sacrum,R and L Buttocks. Cover with Optifoam drsgs. Change every 3 days and PRN. Apply Cavilon Skin Barrier to R and L trochanter. Cover each site with Optifoam drsgs.Change every 7 days and PRN. Apply Cavilon Skin Barrier to both heels. Cover each heel with Optifoam drsg. Change every 7 days and prn. Off-load heels with pillow. Reposition at least every 2hours or as tolerated. APM/MOMO Mattress overlay. (8) COVID-19 Assessment & Plan: COVID + c diff negative febrile leukocytosis renal insufficiency see above cont resp care Rx as per ID worsening on vent support now cxr noted on pressors prognosis guarded repeat covid ++ weaning vent and pressors off slowly showing improvement slowly recovering will need trach as unable to wean vent safely called and spoke with country conservatorship. consent obtained s/p trach pending peg worsening on levo max (9) Sepsis Assessment & Plan: worsening leukocytosis febrile on pressors discussed with ID. lines evaluated and clean. he is septic on pressors and needs central access in difficult venous access patient blood cultures negative will monitor temp HD cath out now with permacath left tlc still subclavian needed line c/d/i line negative c diff negative wbc resolved improved d/c planning febrile leukocytosis hold d/c infectious work up in place yeast in cultures fevers persistent fungemia abx as per ID hold on line removal cont abx repeat cx Yaniv Mast Aug 17, 2019 10:16
--- NOTE | 2019-08-17 11:06 | Hematology/Onc Progress Note ---
Assessment/Plan Assessment/Plan Assessment and Recs: # Anemia of chronic disease, likely related ot underlying kidney disease has COIVD19++++++ --> hgb trend 9-->8-->7.3-->7.9-->6.8->9.5-->10->8.3-->7.7-->7.1-->8.9->8.8->7.7 -->8.1 ->7.9-->7.7 -->8.2-->8.1 -->7.9-->8.5 -->9->9.2-->9.5-->10.7 -->9.8--> 10.2-->11.8 -->11.9-->8.8 ->9.4->9-->8.3 -->8.5-->9.4->9.8-->9-->8.3-->11.6--> 10.8-->10.5-->10->9.7 --> transfuse as needed, hgb goal >7 --> no evidence of hemolysis --> peripheral smear has been reviewed --> epogen started 3 x a week ==>> transfuse 06/08, 06/15 # Leukocytosis likely related to suspected COVID-19 virus infection --> completed plaquenil --> trend smear as needed --> wbc trend: 4-->11-->14.5-->21-->26-->21->24--.28-->23-->19-->16.2-->21--> 11.2 -->12.5-->12.3-->12.4-->18.5-->18.5-->17->13-->18.2-->22.2-->25-->17.4-->17 -->14.2-->14-->16-->15.5-->9->17->11.5-->12->12-->18 --> pulm is aware --> on abx cefepime/vanc->zosyn/vanc-->dom/vanc-->dom-->levaquin/cefepime--> vanc/zosyn --> vanc --> pressors as needed --> 06/27 covid 19++ --> pressors as needed in icu --> c diff negative 08/08 --> blood cx++ # Thrombocytopenia/Lymphopenia --> likely related to covid19 --> plt 129k-->186k-->251-->285-->384 -->430-->539-->515-->447-->451-->404-->544 -->244 -->393 # Respiratory failure with covid19+ --> s/p vent/trach --> weaning # Possible Pneumonia --> abx completed --> 07/13 cxr: Improved right lung infiltrates. # Cardiomegaly # Transaminitis with Elevated AST # COPD # Chronic Kidney Disease --> per renal hd --> s/p right femoral cath 07/02 # Hypertension # peg # Dvt ppx lovenox Appreciate consultation and ernesto Rn Subjective HEENT: Denies: no symptoms, eye pain, blurred vision, tearing, double vision, ear pain, ear discharge, nose pain, nose congestion, throat pain, throat swelling, mouth pain, mouth swelling, other Cardiovascular: Denies: no symptoms, chest pain, edema, irregular heart rate, lightheadedness, palpitations, syncope, other Respiratory: Denies: no symptoms, cough, shortness of breath, SOB with excertion, SOB at rest, sputum, wheezing, other Gastrointestinal/Abdominal: Denies: no symptoms, abdomen distended, abdominal pain, black stools, tarry stools, blood in stool, constipated, diarrhea, difficulty swallowing, nausea, poor appetite, poor fluid intake, rectal bleeding , vomiting, other Genitourinary: Denies: no symptoms, burning, discharge, frequency, flank pain, hematuria, incontinence, pain, urgency, other Neurologic/Psychiatric: Denies: no symptoms, anxiety, depressed, emotional problems, headache, numbness, paresthesia, pre-existing deficit, seizure, tingling, tremors, weakness, other Endocrine: Denies: no symptoms, excessive sweating, flushing, intolerance to cold, intolerance to heat, increased hunger, increased thirst, increased urine, unexplained weight gain, unexplained weight loss, other Hematologic/Lymphatic: Denies: no symptoms, anemia, easy bleeding, easy bruising, adenopathy, other Allergies: Coded Allergies: No Known Allergies (Unverified , 05/28/19) Subjective 06/01 nv, extremely agitated, not allowing labs draws, no night sweats, cbc ordered 06/02 confused, restraints, on abx and plaquenil, hgb 7.9, nrb 15 L 06/03 is with nonrebreather, but not compliant, remains confused 06/05 no bleeding, labs noted, no major bleeding, otherwise comfortable 06/06 labs reviewed, no bleeding, meds noted, no night sweats, on levo and nonrebreather 06/07 labs noted, no bleeding, meds reviewed, no bleeding, wbc higher 06/08 to get 2 units prbc, no night sweats, meds reviewed 06/09 is on cefepime and vanc, labs noted, ernesto Rn, no bleeding 06/10 no major changes, labs reviewed, wbc 28k, on abx, cefepime 06/12 remains in icu, labs noted, no night sweats or bleeding 06/13 sluggish pupils, remains agitated, per psych, no bleding, on vent, wbc sitll high 06/14 still confused, remains on vent, with ng, running nepro, on pressors 06/15 icu, febrile, non verbal, hgb 7.1, blood pending, completed plaq 06/16 remains in the icu, nonverbal, plan for hd tomorrow, ernesto rn 06/17 in icu, on pressor, nonverbal, on abx, no bleeding 06/19 no bleeding, nonverbal in icu, hgb is 7.7 06/20 on zosyn, tube feeds, vent, labs noted, in icu, nv 06/21 gettng hd as per renal, in icu, nv, no bleeding, tfs 06/22 icu, cxr with slight improvement, cooling blanket, weaning today 06/23 wewaning, in icu, on vent, abx, and pressors as needed, labs noted 06/24 failed weaning, off abx, completed plaquenil, hgb 8.1 06/26 icu, weaning for this am, afebrile, hgb 8 06/27 in icu, remains comotose, weaning started on peep, no night sweats 06/28 weaning today, off abx, restraints, no distress, h/h stable 06/29 covid 19+, failed weaning, no blood transfusion needed 06/30 icu, on vent, labs reviewed, no distress 07/01 in icu, may need trach, remains on hd per renal, labs noted 07/02 s/p right fem cath, failed wean, no new orders, h/h stable 07/03 is somewhat more responsive, on abx, no bleeding, weaning and HD today 07/04 hd as per renal, weaning off vent, no bleeding today 07/05 obtunded, no bleding overnight, with hd for tomorrow noted, vanc 07/08 no events, remains with trach/vent, ernesto Rn, no bleeding, cbc is noted 07/09 no overnight events, peg for friday pending consent 07/10 off pressors, vent, restraints, labs reviewed 07/11 no acute events is on pressors, intubated, agitated still 07/12 is resting comfortably, no bleeding, emds reviewed and noted 07/13 icu, no events, trach, cxr reviewed, 07/14 is onv ent, tachypneic and tachycardic, labs noted 07/15 remains confused, intubated, dw Rn, no bleeding 07/17 icu, cxr improving infiltrates, levo gtt, airborne/contact isolation 07/18 is on broad spectrum abx, is on levaquin and cefepime, wbc 16 agitated 07/19 icu, levo gtt, cxr unchanged, tachy, hd thursday 07/20 sedated, safety restraints, labs reviewed 07/21 hd was done yesterday, lower pressor requirements, wbc is worse, on abx 07/22 icu, meds and labs reviewed, vent, no distress 07/24 on vent, in icu, labs noted, remains agitated, and confused 07/25 remains obtunded, on vent, on pressor, hgb 9, wbc elev 07/26 icu, levo gtt, vent, iv abx, nonverbal 07/27 failed weaning, labs reviewed, repeat covid swab pending 07/28 labs are noted, no bleeding, on vent/trach gtube feeds dw rn 07/29 iuc, restraints, no new changes, vent 07/31 is asleep, comfortable, no events, labs reviewed, restraints+ 08/01 no events, agitated, no bleeding, meds noted, on gtube feeds 08/02 remains on vent, no bleeding, wbc higher 19, hgb 9, on abx 08/03 labs noted, on vent, no bleeding, wbc 17, hgb better 08/04 labs reviewed, no bleeding, does not require prbc, on vent 08/05 more alert, is on trach, vent, no major events, no bleeding, peg+ 08/07 no bleeding no chills, no night sweats, is on vent/trach 08/08 recent covid swab negative, restraints, cxr unchanged 08/09 c diff negative, zosyn, hd today, gtf 08/10 no overnight events, labs reviewed, afebrile 08/11 labs reviewed, meds noted, no fc, no major changes, wbc 12 08/12 abx changed to flucon, on abx, wbc 12 08/14 bp on low end, blood cx++, vanc, vent 08/15 no bleeding, no night sweats, on abx, trach/vent 08/16 is able to nod head in response to question, labs noted, on vent/trach Objective Objective Current Medications Medications (Trade) Dose Ordered Sig/Anthony Route PRN Reason Start Time Stop Time Status Last Admin Dose Admin Acetaminophen (Tylenol) 650 mg Q4H PRN NG For Pain 08/04/19 21:38 09/03/19 21:37 08/15/19 14:24 Acetaminophen (Tylenol) 650 mg Q4H PRN NG Temp >100.5 08/15/19 13:30 09/08/19 08:29 Chlorhexidine Gluconate (Michelle-Hex 2%) 1 applic DAILY@1999 TOPIC 08/05/19 20:00 09/05/19 19:59 08/16/19 20:12 Dextrose (Dextrose 50%) 25 ml Q30M PRN IV Hypoglycemia 08/04/19 22:00 09/18/19 19:29 Dextrose (Dextrose 50%) 50 ml Q30M PRN IV Hypoglycemia 08/04/19 22:00 09/18/19 19:29 Enoxaparin Sodium (Lovenox) 30 mg DAILY SUBQ 08/05/19 09:00 08/27/19 08:59 08/17/19 08:06 Epoetin Aftab (Epoetin Aftab(ESRD on dialysis)) 10,000 unit FRI- SUBQ 08/11/19 21:00 11/09/19 20:59 08/16/19 21:58 Fluconazole (Diflucan) 200 mg DAILY NG 08/13/19 10:24 08/20/19 10:23 08/17/19 08:05 Haloperidol Lactate 5 mg/ Dextrose 56 ml @ 224 mls/hr Q6H PRN IVPB Agitation 08/04/19 21:38 09/18/19 21:37 Hydralazine HCl (Apresoline) 10 mg Q4H PRN IV Blood pressure over 160 systol 08/04/19 21:39 11/02/19 21:38 Insulin Aspart (NovoLOG) EVERY 6 HOURS SUBQ 08/05/19 00:00 09/19/19 00:00 08/17/19 06:17 Loperamide HCl (Imodium) 2 mg Q6H PRN NG Diarrhea 08/16/19 14:16 09/15/19 14:15 08/17/19 08:09 Metoclopramide HCl (Reglan) 5 mg Q8HR IVP 08/05/19 06:00 09/04/19 05:59 08/17/19 06:14 Metoprolol Tartrate (Lopressor) 12.5 mg Q12HR NG 08/15/19 21:00 11/11/19 20:59 08/16/19 20:12 Midodrine (Pro-Amatine) 10 mg THREE TIMES A DAY NG 08/15/19 18:00 11/13/19 17:59 08/17/19 08:06 Pantoprazole (Protonix) 40 mg DAILY IVP 08/05/19 09:00 08/26/19 08:59 08/17/19 08:05 Vancomycin HCl (Vanco pharmacy to dose) 1 ea DAILY PRN MISC Per rx protocol 08/15/19 08:45 09/14/19 08:44 Last 24 Hour Vital Signs Date Time Temp Pulse Resp B/P (MAP) Pulse Ox O2 Delivery O2 Flow Rate FiO2 08/17/19 09:08 72 29 30 30 08/17/19 08:05 80 91/54 08/17/19 08:00 Mechanical Ventilator Mechanical Ventilator 08/17/19 08:00 98.1 77 18 83/59 (67) 100 08/17/19 08:00 30 08/17/19 08:00 79 08/17/19 07:01 84 26 30 08/17/19 04:00 Mechanical Ventilator Mechanical Ventilator 08/17/19 04:00 30 08/17/19 04:00 80 08/17/19 04:00 98.7 85 28 88/62 (71) 99 08/17/19 03:51 79 26 30 08/17/19 00:00 Mechanical Ventilator Mechanical Ventilator 08/17/19 00:00 30 08/17/19 00:00 98.2 90 28 98/64 (75) 100 08/17/19 00:00 70 08/16/19 22:53 68 26 30 08/16/19 20:12 65 120/70 08/16/19 20:00 Mechanical Ventilator Mechanical Ventilator 08/16/19 20:00 98.5 95 28 120/70 (87) 100 08/16/19 20:00 87 08/16/19 20:00 30 08/16/19 19:54 76 26 30 08/16/19 16:00 30 08/16/19 16:00 90 08/16/19 16:00 98.1 87 28 110/56 (74) 100 08/16/19 16:00 Mechanical Ventilator Mechanical Ventilator 08/16/19 15:47 97 08/16/19 15:39 90 27 30 08/16/19 12:00 30 08/16/19 12:00 Mechanical Ventilator Mechanical Ventilator 08/16/19 12:00 85 08/16/19 12:00 98.1 84 28 125/72 (89) 99 08/16/19 10:39 86 33 30 30 08/16/19 08:50 90 112/71 08/16/19 08:00 Mechanical Ventilator Mechanical Ventilator 08/16/19 08:00 30 08/16/19 08:00 97.0 87 28 122/47 (72) 98 08/16/19 08:00 88 08/16/19 07:24 86 27 30 30 08/16/19 07:16 82 26 30 08/16/19 04:00 30 08/16/19 04:00 97.8 100 28 105/70 (82) 99 08/16/19 04:00 Mechanical Ventilator Mechanical Ventilator 08/16/19 03:45 93 26 30 08/16/19 03:34 91 08/16/19 00:00 98.5 93 28 99/62 (74) 99 08/16/19 00:00 30 08/16/19 00:00 Mechanical Ventilator Mechanical Ventilator 08/16/19 00:00 94 08/15/19 23:40 84 26 30 08/15/19 21:00 89 115/60 08/15/19 20:00 Mechanical Ventilator Mechanical Ventilator 08/15/19 20:00 98.8 89 28 115/60 (78) 99 08/15/19 20:00 30 08/15/19 19:52 92 08/15/19 19:32 88 26 30 08/15/19 18:00 98.2 99 26 119/72 (88) 100 08/15/19 16:00 98.2 99 26 89/52 (64) 100 08/15/19 16:00 Mechanical Ventilator Mechanical Ventilator 08/15/19 16:00 30 08/15/19 16:00 102 08/15/19 15:10 77 27 30 08/15/19 12:00 30 08/15/19 12:00 100 08/15/19 12:00 98.4 105 26 123/58 (79) 100 08/15/19 12:00 Mechanical Ventilator Mechanical Ventilator 08/15/19 11:10 102 26 30 Intake and Output 08/16/19 08/17/19 19:00 07:00 Intake Total 530 ml 540 ml Output Total 100 ml Balance 430 ml 540 ml Free Water 50 ml 100 ml Tube Feeding 480 ml 440 ml Stool Total 100 ml Hemodialysis UF 0 ml Labs Test 08/14/19 11:36 08/14/19 16:59 08/15/19 04:50 08/15/19 20:26 POC Whole Blood Glucose 259 MG/DL (74-106) 261 MG/DL (74-106) Test 08/16/19 05:18 08/16/19 05:31 08/16/19 17:18 08/17/19 03:20 White Blood Count 18.2 K/UL (4.8-10.8) Red Blood Count 3.42 M/UL (4.70-6.10) Hemoglobin 9.7 G/DL (14.2-18.0) Hematocrit 32.8 % (42.0-52.0) Mean Corpuscular Volume 96 FL (80-99) Mean Corpuscular Hemoglobin 28.4 PG (27.0-31.0) Mean Corpuscular Hemoglobin Concent 29.6 G/DL (32.0-36.0) Red Cell Distribution Width 18.9 % (11.6-14.8) Platelet Count 360 K/UL (150-450) Mean Platelet Volume 7.6 FL (6.5-10.1) Neutrophils (%) (Auto) % (45.0-75.0) Lymphocytes (%) (Auto) % (20.0-45.0) Monocytes (%) (Auto) % (1.0-10.0) Eosinophils (%) (Auto) % (0.0-3.0) Basophils (%) (Auto) % (0.0-2.0) Differential Total Cells Counted 100 Neutrophils % (Manual) 83 % (45-75) Lymphocytes % (Manual) 12 % (20-45) Monocytes % (Manual) 2 % (1-10) Eosinophils % (Manual) 3 % (0-3) Basophils % (Manual) 0 % (0-2) Band Neutrophils 0 % (0-8) Platelet Estimate Adequate Platelet Morphology Normal Polychromasia 1+ Hypochromasia 1+ Anisocytosis 1+ Sodium Level 145 MMOL/L (136-145) Potassium Level 5.0 MMOL/L (3.5-5.1) Chloride Level 101 MMOL/L (98-107) Carbon Dioxide Level 27 MMOL/L (21-32) Anion Gap 17 mmol/L (5-15) Blood Urea Nitrogen 85 mg/dL (7-18) Creatinine 8.0 MG/DL (0.55-1.30) Estimat Glomerular Filtration Rate 6.8 mL/min (>60) Glucose Level 221 MG/DL (74-106) Uric Acid 9.7 MG/DL (2.6-7.2) Calcium Level 10.1 MG/DL (8.5-10.1) Phosphorus Level 3.4 MG/DL (2.5-4.9) Magnesium Level 2.4 MG/DL (1.8-2.4) Total Bilirubin 0.4 MG/DL (0.2-1.0) Aspartate Amino Transf (AST/SGOT) 19 U/L (15-37) Alanine Aminotransferase (ALT/SGPT) 14 U/L (12-78) Alkaline Phosphatase 158 U/L (46-116) C-Reactive Protein, Quantitative 5.7 mg/dL (0.00-0.90) Pro-B-Type Natriuretic Peptide 6480 pg/mL (0-125) Total Protein 9.3 G/DL (6.4-8.2) Albumin 3.4 G/DL (3.4-5.0) Globulin 5.9 g/dL Albumin/Globulin Ratio 0.6 (1.0-2.7) Random Vancomycin Level 27.2 ug/mL 23.6 ug/mL POC Whole Blood Glucose 196 MG/DL (74-106) Height (Feet): 6 Height (Inches): 1.00 Weight (Pounds): 171 Objective General: nv, confused, sedated Heent: bilateral eye normal inspection, bilateral eye PERRL ++Ng Respiratory: normal breath sounds, no respiratory distress, intubated/vent +++ trach+++ Cardiovascular: regular rate, rhythm, no edema Gastrointestinal: normal inspection, soft, non-distended, peg+ Rectal: deferred Musculoskeletal: normal range of motion, non-tender, R fem cath++ Neurologic: alert, motor strength/tone normal, sensory intact, responsive, speech normal Skin: Decubitus/Ulcer - See RN skin exam. : jamaal+ Greg Cabral MD Aug 17, 2019 11:06
[2019-08-17] MEDS ORDERED: Lomotil 2.5mg tab ORAL SCH (11:15)
--- NOTE | 2019-08-17 11:16 | General Progress Note ---
Assessment/Plan Status: progressing, unchanged, deteriorating Assessment/Plan: 1. Diabetes. 2. Hypertension. 3. Coronary artery disease. 4. COPD. 5. Psychiatric disorder with schizophrenia. 6. History of hepatitis C. 7. HLP. 8. Chronic kidney disease, now with acute renal failure. 9. Anemia. 10. Hypothyroidism. 11. Spinal stenosis. 12. Constipation. 13. GERD. 14. COVID positive HD per nephrology fu labs icu care s/p PEG GTF TF at 40 cc prn imodium add lomotil repeat C.diff ordered by ID monitor for residuals Subjective ROS Limited/Unobtainable: No Allergies: Coded Allergies: No Known Allergies (Unverified , 05/28/19) Objective Last 24 Hour Vital Signs Date Time Temp Pulse Resp B/P (MAP) Pulse Ox O2 Delivery O2 Flow Rate FiO2 08/17/19 11:09 86 28 30 30 08/17/19 09:08 72 29 30 30 08/17/19 08:05 80 91/54 08/17/19 08:00 Mechanical Ventilator Mechanical Ventilator 08/17/19 08:00 98.1 77 18 83/59 (67) 100 08/17/19 08:00 30 08/17/19 08:00 79 08/17/19 07:01 84 26 30 08/17/19 04:00 Mechanical Ventilator Mechanical Ventilator 08/17/19 04:00 30 08/17/19 04:00 80 08/17/19 04:00 98.7 85 28 88/62 (71) 99 08/17/19 03:51 79 26 30 08/17/19 00:00 Mechanical Ventilator Mechanical Ventilator 08/17/19 00:00 30 08/17/19 00:00 98.2 90 28 98/64 (75) 100 08/17/19 00:00 70 08/16/19 22:53 68 26 30 08/16/19 20:12 65 120/70 08/16/19 20:00 Mechanical Ventilator Mechanical Ventilator 08/16/19 20:00 98.5 95 28 120/70 (87) 100 08/16/19 20:00 87 08/16/19 20:00 30 08/16/19 19:54 76 26 30 08/16/19 16:00 30 08/16/19 16:00 90 08/16/19 16:00 98.1 87 28 110/56 (74) 100 08/16/19 16:00 Mechanical Ventilator Mechanical Ventilator 08/16/19 15:47 97 08/16/19 15:39 90 27 30 08/16/19 12:00 30 08/16/19 12:00 Mechanical Ventilator Mechanical Ventilator 08/16/19 12:00 85 08/16/19 12:00 98.1 84 28 125/72 (89) 99 Intake and Output 08/16/19 08/17/19 19:00 07:00 Intake Total 530 ml 540 ml Output Total 100 ml Balance 430 ml 540 ml Free Water 50 ml 100 ml Tube Feeding 480 ml 440 ml Stool Total 100 ml Hemodialysis UF 0 ml Laboratory Tests 08/16/19 17:18: POC Whole Blood Glucose [Pending] 08/17/19 03:20: Random Vancomycin Level 23.6 Height (Feet): 6 Height (Inches): 1.00 Weight (Pounds): 171 General Appearance: no apparent distress EENT: normal ENT inspection Neck: supple Cardiovascular: normal rate Respiratory/Chest: decreased breath sounds Abdomen: normal bowel sounds, non tender, soft Extremities: non-tender Marito Ramires MD Aug 17, 2019 11:16
--- NOTE | 2019-08-17 14:10 | Nephrology Progress Note ---
Assessment/Plan Problem List: (1) CASSANDRA (acute kidney injury) (2) Anemia in chronic kidney disease (CKD) (3) HTN (hypertension) (4) COVID-19 Assessment Acute renal failure most likely superimposed on chronic kidney disease Suspected COVID-19 virus infection Possible Pneumonia, lymphopenia, elevated AST Cardiomegaly, possible CHF COPD Hypertension Anemia, most likely related to chronic kidney disease Plan August 16: Albumin for low BP. Continue to monitor renal parameters. August 15: Due for dialysis today. Remains borderline low. No ultrafiltration during dialysis. Discussed with SHANIQUE Macdonald. August 14: No labs done today. Patient hypotensive. Normal saline and albumin bolus given. Midodrin started. Will check lab tomorrow. August 13: Lab reviewed. Last dialysis yesterday. Next dialysis August 15. Potassium and phosphorus supplement given. Continue per consultants. August 12: No can panel done today. Due for dialysis today. Continue per consultants. August 11: Patient labs reviewed. Will order dialysis tomorrow. Continue per consultants. August 10: Patient was dialyzed yesterday. Today's labs checked. Stable from renal standpoint to view August 09: Patient scheduled for hemodialysis today. Will check labs tomorrow. August 08: Lab reviewed. Hemodialysis scheduled for tomorrow. August 07: Dialyzed yesterday. No labs drawn today. Will check labs tomorrow. Continue per consultants. August 06: Patient on dialysis now. Discussed with dialysis nurse. Slight catheter malfunction persist. August 05: Labs reviewed. Dialysis scheduled for tomorrow. Continue per consultants. August 04: No labs done today. Dialyzed yesterday. Check labs tomorrow. Continue per consultants. August 03: Lab reviewed. Due for dialysis today. White blood cell 17,500. August 02: Lab reviewed. Low phosphorus replaced. Hemodialysis ordered for tomorrow. White blood cells over 18,000. August 01: Labs reviewed. Potassium replacement ordered. Remains full code on ventilator via trach. Continue per consultants. July 31: Dialyzed yesterday. No can panel today. Remains full code. Remains on ventilator. Being fed through PEG. Continue per consultants. July 30: Patient due for dialysis today. Labs are reviewed. Remains full code. Status post trach to ventilator. Status post PEG. July 29: Patient dialyzed yesterday. Due for dialysis tomorrow. Remains in ICU. Full code. Status post trach tube to ventilator. Status post PEG. July 28: Due for dialysis today. Labs reviewed. Full code. Patient trached and vented. July 27: Last COVID test negative. COVID test will be repeated tomorrow. Will order dialysis tomorrow. Remains full code. Medication list and labs reviewed. July 26: No labs done today. Dialysis done yesterday. Will check lab tomorrow. Dialysis as needed. July 25: Lab reviewed. Dialysis today. Discussed with RN. July 24: Lab reviewed. Do dialysis tomorrow. Discussed with RN. July 23: Lab reviewed. Dialyzed yesterday. Discussed with RN. Remains full code. Next dialysis July 25. Will check labs tomorrow. July 22: Labs reviewed. Due for dialysis today. Discussed with RN. Watch borderline low blood pressure. Discussed with dialysis nurse. July 21: Today's lab reviewed. Will arrange for dialysis tomorrow. Discussed with RN. Aim to keep the blood pressure above 100 systolic. Continue per consultants. July 20: Patient was dialyzed yesterday. Could not ultrafiltrate much due to low blood pressure. Discussed with SHANIQUE Dick today. No labs drawn today. Continue per consultants. July 19: Due for dialysis today. Discussed with SHANIQUE Dick. Continue per consultants. July 18: Dialyzed July 16. Will order dialysis tomorrow July 19. Continues to be on ventilator through trach. No labs done today. Continue per consultants. July 17: Dialyzed yesterday. Stable from renal standpoint of view. Remains full code. Status post trach on vent. Status post PEG. Continue per consultants. July 16: Dialysis today. Will resume Midodrin to prevent hypotension. Patient remains full code. July 15: Dialyzed yesterday, due for dialysis tomorrow. Labs and medication list reviewed. Continue per consultants. Patient remains full code. COVID-19 detected again. July 14: Patient currently on dialysis. This is continuation of dialysis from yesterday as yesterday's dialysis was cut short due to catheter malfunction. Labs and medication reviewed. Continue per consultants. July 13: Patient currently on hemodialysis. The dialysis catheter which is a intrajugular Kamlesh has poor flow. Will try TPA. Continue per consultants. July 12: Due for PEG today. Due for dialysis tomorrow. Continue per consultants. Discussed with RN. July 11: Plan for dialysis today. Discussed with RN. Data reviewed. July 10: Plan for dialysis tomorrow July 11. Waiting for consent to proceed with PEG. Continue per consultants. Medication reviewed. Labs reviewed. Discussed with RN. July 09: Dialyzed yesterday. Labs reviewed. Medication reviewed. Next hemodialysis July 11. July 08: Patient has tracheostomy now. Connected to ventilator. Due for dialysis today. Continue per consultants. Discussed with SHANIQUE Romero. July 07: Patient is due for tracheostomy today. Patient was last dialyzed July 05. Will order dialysis for tomorrow. July 06: Patient is intubated on ventilator however the plan is to extubate today. Patient was dialysis yesterday July 05. The dialysis time was cut short due to patient's respiratory distress. Only 1 L was removed during dialysis yesterday. Today's lab reviewed. Continue per consultants. Will arrange for dialysis as needed. July 05: Patient due for dialysis today. Remains intubated. Will schedule permacath placement in a.m. blood cultures on July 04 are negative. July 04: Patient was dialyzed yesterday. Due for dialysis tomorrow. Continues to be intubated. After tomorrow's dialysis will order a permacath. July 03: Dialysis is about to be started now Continues to be intubated Will plan to remove the femoral dialysis catheter and exchanged for a new temporary catheter per ID recommendation We will check surveillance blood culture tomorrow July 02: Patient was dialyzed yesterday and due for dialysis tomorrow Stable from renal standpoint W on dialysis Continue per consultants, weaning....... etc. July 01: Dialysis today Other status unchanged June 30: Due for dialysis tomorrow Remains intubated on ventilator Labs and medication reviewed Discussed with RN Stable from renal standpoint of view June 29: Dialyzed yesterday Due for dialysis tomorrow Stable from renal standpoint to view Keeps failing weaning process June 28: Patient due for dialysis today Stable from renal standpoint to view Continue per consultants June 27: Labs reviewed Due due for dialysis June 28 Discussed with SHANIQUE Dick Continue per consultants Remains intubated on ventilator June 26 Labs reviewed Dialyzed yesterday Started on weaning today Continue to monitor renal parameters June 25: On dialysis now Potassium supplement implemented Continue per consultants Next dialysis June 27June 15: Status unchanged Dialyzed yesterday will dialyze again tomorrow Potassium supplements given Discussed with RN June 14: Due dialysis today Status: Remains intubated on ventilator June 22: Status unchanged Dialyzed yesterday and duefordialysistomorrow Serum sodium stable today June 21 Remains intubated on ventilator Due dialysis today Emphasized high sodium bath for dialysis June 20: Remains intubated on ventilator Dialyzed June 19 next dialysis June 21 Serum sodium 128, will give 250 cc 3% saline Remains full code Discussed with RN Iron panel ordered June 19: Discussed with RN. Patient due for dialysis today. Continue pulmonary support. Remains full code. June 18: Patient dialyzed yesterday June 17 Serum sodium improved but still low Arrange for dialysis tomorrow June 19 Continue per consultants June 17: Due for dialysis today Today's lab reviewed, low serum sodium noted, Emphasized on high sodium bath to dialysis nurse Discussed with SHANIQUE Yuen June 16: Dialyzed yesterday Remains intubated Labs reviewed, serum sodium 131 Plan to dialyze tomorrow June 17 with high sodium bath Discussed with SHANIQUE Yuen June 15: Due for dialysis today Labs reviewed Discussed with RN Transfuse 1 unit of packed RBCs today for low hemoglobin of 7.1 June 5: Blood pressure well maintained Receive dialysis June 13 next hemodialysis June 15June 4: Discussed with RN in ICU Patient did not receive proper dialysis yesterday due to dialysis catheter malfunction Catheter to be adjusted today and dialyzed to be resumed today Continue per consultants Positive for COVID 28 June 2: Patient now intubated on mechanical ventilation Discussed with SHANIQUE Yuen, today June 12 Patient received dialysis yesterday June 10 next hemodialysis June 12 Blood pressure better maintained Today's labs reviewed Continue per consultants Previously patient received dialysis last evening June 05, next dialysis June 07 which was incomplete due to patient's hypotension Will start on midodrine for blood pressure support. Meanwhile continue other pressors as needed Previously Patient is doing poorly, septic, white blood cells are rising, Hypotension somewhat improved We will keep n.p.o. , NG tube for medications, and change medication to IV as needed Patient remains full code Monitor vancomycin level Previously: Patient pulled out his femoral catheter yesterday June 03 which was reinserted by Dr. Mast Patient scheduled for dialysis again June 04, which again was not done due to dialysis nurse citing catheter malfunction Meanwhile continue management per ID, pulmonary , and psych. Meanwhile white blood cell count is rising. Patient blood pressure borderline low. Will check ABG Previously May 31 : I believe patient need dialysis treatment He however needs to competency assessment if can make decisions or not I will communicate with Dr. Mulligan Previously: Per pulmonary and ID advice Adjust blood pressure medication Renal diet Anemia work-up 2D echocardiogram refused Kidney ultrasound refused Jules catheter Urine studies Per orders Subjective ROS Limited/Unobtainable: Yes Objective Objective Last 24 Hour Vital Signs Date Time Temp Pulse Resp B/P (MAP) Pulse Ox O2 Delivery O2 Flow Rate FiO2 08/17/19 12:00 Mechanical Ventilator Mechanical Ventilator 08/17/19 12:00 97.4 80 18 106/60 (75) 100 08/17/19 12:00 81 08/17/19 12:00 30 08/17/19 11:09 86 28 30 30 08/17/19 09:08 72 29 30 30 08/17/19 08:05 80 91/54 08/17/19 08:00 Mechanical Ventilator Mechanical Ventilator 08/17/19 08:00 98.1 77 18 83/59 (67) 100 08/17/19 08:00 30 08/17/19 08:00 79 08/17/19 07:01 84 26 30 08/17/19 04:00 Mechanical Ventilator Mechanical Ventilator 08/17/19 04:00 30 08/17/19 04:00 80 08/17/19 04:00 98.7 85 28 88/62 (71) 99 08/17/19 03:51 79 26 30 08/17/19 00:00 Mechanical Ventilator Mechanical Ventilator 08/17/19 00:00 30 08/17/19 00:00 98.2 90 28 98/64 (75) 100 08/17/19 00:00 70 08/16/19 22:53 68 26 30 08/16/19 20:12 65 120/70 08/16/19 20:00 Mechanical Ventilator Mechanical Ventilator 08/16/19 20:00 98.5 95 28 120/70 (87) 100 08/16/19 20:00 87 08/16/19 20:00 30 08/16/19 19:54 76 26 30 08/16/19 16:00 30 08/16/19 16:00 90 08/16/19 16:00 98.1 87 28 110/56 (74) 100 08/16/19 16:00 Mechanical Ventilator Mechanical Ventilator 08/16/19 15:47 97 08/16/19 15:39 90 27 30 Intake and Output 08/16/19 08/17/19 19:00 07:00 Intake Total 530 ml 540 ml Output Total 100 ml Balance 430 ml 540 ml Free Water 50 ml 100 ml Tube Feeding 480 ml 440 ml Stool Total 100 ml Hemodialysis UF 0 ml Laboratory Tests 08/16/19 17:18: POC Whole Blood Glucose [Pending] 08/17/19 03:20: Random Vancomycin Level 23.6 08/17/19 11:48: POC Whole Blood Glucose [Pending] Height (Feet): 6 Height (Inches): 1.00 Weight (Pounds): 171 General Appearance: no apparent distress EENT: other - Trach and vent Cardiovascular: tachycardia Respiratory/Chest: decreased breath sounds Abdomen: distended Objective No change Mic Cole MD Aug 17, 2019 14:10
--- NOTE | 2019-08-17 16:16 | Infectious Diseases Prog Note ---
Assessment/Plan Assessment/Plan IMPRESSION: 1. COVID19 pneumonia Positive: 05/27, 05/31 , 06/05, 06/09 ,06/17, 06/19, 06/23, 06/27, 07/03, 07/15, 07/29 Negative: 07/26, 08/04, 08/05 2. MRSA carrier. 3. Chronic kidney disease , end-stage renal disease. 4. COPD. 5. Hypertension. 6. Anemia. 7. Hypothyroidism. 8. Hyperlipidemia. 9. Major depression. 10. Leukocytosis 11. Hypotension 12. Hepatitis C 13. Hyperuricemia 14. Diarrhea, C difficile negative 15. septic shock 16.Sepsis blood cultures 08/08 & 08/12 : yeast blood culture: Staph Coagulase negative 17. Pneumonia with Staph aureus ( MRSA) 18. Candidal sepsis 19. Diarrhea, C. difficile negative RECOMMENDATIONS: continue Fluconazole & Vancomycin Will need change of PermCath Subjective ROS Limited/Unobtainable: Yes Allergies: Coded Allergies: No Known Allergies (Unverified , 05/28/19) Objective Last 24 Hour Vital Signs Date Time Temp Pulse Resp B/P (MAP) Pulse Ox O2 Delivery O2 Flow Rate FiO2 08/17/19 15:58 64 08/17/19 14:47 73 26 30 08/17/19 12:00 Mechanical Ventilator Mechanical Ventilator 08/17/19 12:00 97.4 80 18 106/60 (75) 100 08/17/19 12:00 81 08/17/19 12:00 30 08/17/19 11:09 86 28 30 30 08/17/19 09:08 72 29 30 30 08/17/19 09:00 99 08/17/19 08:05 80 91/54 08/17/19 08:00 Mechanical Ventilator Mechanical Ventilator 08/17/19 08:00 98.1 77 18 83/59 (67) 100 08/17/19 08:00 30 08/17/19 08:00 79 08/17/19 07:01 84 26 30 08/17/19 04:00 Mechanical Ventilator Mechanical Ventilator 08/17/19 04:00 30 08/17/19 04:00 80 08/17/19 04:00 98.7 85 28 88/62 (71) 99 08/17/19 03:51 79 26 30 08/17/19 00:00 Mechanical Ventilator Mechanical Ventilator 08/17/19 00:00 30 08/17/19 00:00 98.2 90 28 98/64 (75) 100 08/17/19 00:00 70 08/16/19 22:53 68 26 30 08/16/19 20:12 65 120/70 08/16/19 20:00 Mechanical Ventilator Mechanical Ventilator 08/16/19 20:00 98.5 95 28 120/70 (87) 100 08/16/19 20:00 87 08/16/19 20:00 30 08/16/19 19:54 76 26 30 Height (Feet): 6 Height (Inches): 1.00 Weight (Pounds): 171 HEENT: status post trach Respiratory/Chest: lungs clear, other - on ventilator Cardiovascular: normal rate, other - Permacath Abdomen: soft, non tender, other - GT feeding Extremities: no edema Neurologic/Psychiatric: other - sleeping Laboratory Tests Test 08/16/19 17:18 08/17/19 03:20 08/17/19 11:48 POC Whole Blood Glucose Pending Pending Random Vancomycin Level 23.6 ug/mL Current Medications Medications (Trade) Dose Ordered Sig/Anthony Route PRN Reason Start Time Stop Time Status Last Admin Dose Admin Acetaminophen (Tylenol) 650 mg Q4H PRN NG For Pain 08/04/19 21:38 09/03/19 21:37 08/15/19 14:24 Acetaminophen (Tylenol) 650 mg Q4H PRN NG Temp >100.5 08/15/19 13:30 09/08/19 08:29 Chlorhexidine Gluconate (Michelle-Hex 2%) 1 applic DAILY@2000 TOPIC 08/05/19 20:00 09/05/19 19:59 08/16/19 20:12 Dextrose (Dextrose 50%) 25 ml Q30M PRN IV Hypoglycemia 08/04/19 22:00 09/18/19 19:29 Dextrose (Dextrose 50%) 50 ml Q30M PRN IV Hypoglycemia 08/04/19 22:00 09/18/19 19:29 Enoxaparin Sodium (Lovenox) 30 mg DAILY SUBQ 08/05/19 09:00 08/27/19 08:59 08/17/19 08:06 Epoetin Aftab (Epoetin Aftab(ESRD on dialysis)) 10,000 unit SUBQ 08/11/19 21:00 11/09/19 20:59 08/16/19 21:58 Fluconazole (Diflucan) 200 mg DAILY NG 08/13/19 10:24 08/20/19 10:23 08/17/19 08:05 Haloperidol Lactate 5 mg/ Dextrose 56 ml @ 224 mls/hr Q6H PRN IVPB Agitation 08/04/19 21:38 09/18/19 21:37 Hydralazine HCl (Apresoline) 10 mg Q4H PRN IV Blood pressure over 160 systol 08/04/19 21:39 11/02/19 21:38 Insulin Aspart (NovoLOG) EVERY 6 HOURS SUBQ 08/05/19 00:00 09/19/19 00:00 08/17/19 11:53 Loperamide HCl (Imodium) 2 mg Q6H PRN NG Diarrhea 08/16/19 14:16 09/15/19 14:15 08/17/19 08:09 Metoclopramide HCl (Reglan) 5 mg Q8HR IVP 08/05/19 06:00 09/04/19 05:59 08/17/19 13:05 Metoprolol Tartrate (Lopressor) 12.5 mg Q12HR NG 08/15/19 21:00 11/11/19 20:59 08/16/19 20:12 Midodrine (Pro-Amatine) 10 mg THREE TIMES A DAY NG 08/15/19 18:00 11/13/19 17:59 08/17/19 13:04 Pantoprazole (Protonix) 40 mg DAILY IVP 08/05/19 09:00 08/26/19 08:59 08/17/19 08:05 Vancomycin HCl ([facility] pharmacy to dose) 1 ea DAILY PRN MISC Per rx protocol 08/15/19 08:45 09/14/19 08:44 Ted Leyva MD Aug 17, 2019 16:16
--- NOTE | 2019-08-17 17:07 | Cardiac Electrophysiology PN ---
Assessment/Plan Assessment/Plan 1. NSTEMI type 2. Low level and flat due to renal failure. On Aspirin. EF 60%. 2. S/P Septic shock. On Abx. BP dropped to 80 again. Will give NS and Albumin DC Lopressor 3. ESRD, on HD per Dr. Cole. S/P PermCath placement by IR 4. VDRF due to COVID pneumonia. S/P Tracheostomy 07/08/19. 5. Atrial fib with RVR. DC Lopressor 6. Dysphagia, S/P PEG 07/13/19 7. COPD. 8. Anemia. DW RN Subjective Subjective In SDU on the vent via trach. Off pressors. Fio2 30% Covid positive x 10. Off isolation BP dropped to 80 today. Objective Last 24 Hour Vital Signs Date Time Temp Pulse Resp B/P (MAP) Pulse Ox O2 Delivery O2 Flow Rate FiO2 08/17/19 15:58 64 08/17/19 14:47 73 26 30 08/17/19 12:00 Mechanical Ventilator Mechanical Ventilator 08/17/19 12:00 97.4 80 18 106/60 (75) 100 08/17/19 12:00 81 08/17/19 12:00 30 08/17/19 11:09 86 28 30 30 08/17/19 09:08 72 29 30 30 08/17/19 09:00 99 08/17/19 08:05 80 91/54 08/17/19 08:00 Mechanical Ventilator Mechanical Ventilator 08/17/19 08:00 98.1 77 18 83/59 (67) 100 08/17/19 08:00 30 08/17/19 08:00 79 08/17/19 07:01 84 26 30 08/17/19 04:00 Mechanical Ventilator Mechanical Ventilator 08/17/19 04:00 30 08/17/19 04:00 80 08/17/19 04:00 98.7 85 28 88/62 (71) 99 08/17/19 03:51 79 26 30 08/17/19 00:00 Mechanical Ventilator Mechanical Ventilator 08/17/19 00:00 30 08/17/19 00:00 98.2 90 28 98/64 (75) 100 08/17/19 00:00 70 08/16/19 22:53 68 26 30 08/16/19 20:12 65 120/70 08/16/19 20:00 Mechanical Ventilator Mechanical Ventilator 08/16/19 20:00 98.5 95 28 120/70 (87) 100 08/16/19 20:00 87 08/16/19 20:00 30 08/16/19 19:54 76 26 30 Intake and Output 08/16/19 08/17/19 19:00 07:00 Intake Total 530 ml 540 ml Output Total 100 ml Balance 430 ml 540 ml Free Water 50 ml 100 ml Tube Feeding 480 ml 440 ml Stool Total 100 ml Hemodialysis UF 0 ml Laboratory Tests Test 08/16/19 17:18 08/17/19 03:20 08/17/19 11:48 POC Whole Blood Glucose Pending Pending Random Vancomycin Level 23.6 ug/mL Objective HEAD AND NECK: No JVD. Tracheostomy in place. Left IJ HD catheter now in place. Right IJ PermCath in place LUNGS: Decreased breath sounds. CARDIOVASCULAR: Regular S1 and S2. Tachycardic. ABDOMEN: Soft. PEG in place EXTREMITIES: No pitting edema. Gio Baker MD Aug 17, 2019 17:07
--- NOTE | 2019-08-17 17:53 | Pulmonolgy Critical Care Note ---
Critical Care - Asmt/Plan Assessment/Plan: Pulmonary Progress Note HPI: Patient is a 68 year old man, halfway resident, admitted c/o shortness of breath, cough, noted to have Covid 19 Pneumonia, Respiratory Failure Remains on Ventilator, CXR infiltrates stable 7/2 Anemia CKD on HD, Intemittent hypotension, prn albumin, beta sonia being held, on Mitodrine, will need eventual placement, second consecutive repeat COVID19 test negative Preserved EF FIO2 30%, P5, adequate O2 sats, remains on ACVC, tolerated CPAP PS 8, s/p Tracheostomy previously, sp PEG ID following MRSA sputum Seen earlier Past Medical History: COPD, CKD, Hypertension, Anemia Allergies: No Known Allergies Improving Pulmonary Status on HD Physical Exam Vital Signs Noted Stable on ventilator Chronically ill appearing HEENT: Trach CDI Chest: CTAB Hreart: HS1, HS2, RRR Abdomen: SNTND, Gtube Extremities: Wasted, no edema DRY PLASTERER:No focal signs Impression: COVID-19 virus infection Pneumonia Respiratory failure on ventilator, wean as tolerated once off pressors CKD - on HD Hypotension on pressors previously Cardiomegaly Leukocytosis Elevated AST COPD Chronic Kidney Disease - HD H/o Hypertension Worsening anemia sepsis sinus tachycardia Plan: trach care as is Antibiotics per ID HD per renal monitor vitals AC -joseph as tolerated anxiolytics if needed 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 if needed; Monitor lab data nutrition feeds Hemodialysis per Renal impression, plan, and exam edited and reviewed in detail care discussed with RN Laboratory Tests Noted: CXR: Hypoventilatory exam, interstitial changes, cardiomegaly, improving infiltrates Subjective ROS Limited/Unobtainable: No Constitutional: Denies: fever Respiratory: Reports: dry cough, shortness of breath Gastrointestinal/Abdominal: Reports: diarrhea, other - colace was stopped Psychiatric: Reports: other - refuses labs Allergies: Coded Allergies: No Known Allergies (Unverified , 05/28/19) All Systems: reviewed and negative except above Labs noted Critical Care - Objective Last 24 Hour Vital Signs Date Time Temp Pulse Resp B/P (MAP) Pulse Ox O2 Delivery O2 Flow Rate FiO2 08/17/19 15:58 64 08/17/19 14:47 73 26 30 08/17/19 12:00 Mechanical Ventilator Mechanical Ventilator 08/17/19 12:00 97.4 80 18 106/60 (75) 100 08/17/19 12:00 81 08/17/19 12:00 30 08/17/19 11:09 86 28 30 30 08/17/19 09:08 72 29 30 30 08/17/19 09:00 99 08/17/19 08:05 80 91/54 08/17/19 08:00 Mechanical Ventilator Mechanical Ventilator 08/17/19 08:00 98.1 77 18 83/59 (67) 100 08/17/19 08:00 30 08/17/19 08:00 79 08/17/19 07:01 84 26 30 08/17/19 04:00 Mechanical Ventilator Mechanical Ventilator 08/17/19 04:00 30 08/17/19 04:00 80 08/17/19 04:00 98.7 85 28 88/62 (71) 99 08/17/19 03:51 79 26 30 08/17/19 00:00 Mechanical Ventilator Mechanical Ventilator 08/17/19 00:00 30 08/17/19 00:00 98.2 90 28 98/64 (75) 100 08/17/19 00:00 70 08/16/19 22:53 68 26 30 08/16/19 20:12 65 120/70 08/16/19 20:00 Mechanical Ventilator Mechanical Ventilator 08/16/19 20:00 98.5 95 28 120/70 (87) 100 08/16/19 20:00 87 08/16/19 20:00 30 08/16/19 19:54 76 26 30 Accucheck: 151 Critical Care - Subjective ROS Limited/Unobtainable: No Condition: stable IV Access: central FI02: 30 Vent Support Breath Rate: 26 Vent Support Mode: AC Vent Tidal Volume: 500 Sputum Amount: Small PEEP: 5.0 PIP: 31 Tube Feeding Amount: 40 I&O: Intake and Output 08/16/19 08/17/19 19:00 07:00 Intake Total 530 ml 540 ml Output Total 100 ml Balance 430 ml 540 ml Free Water 50 ml 100 ml Tube Feeding 480 ml 440 ml Stool Total 100 ml Hemodialysis UF 0 ml ET-Tube: 7.5 ET Position: 24 Arturo Mckeon MD Aug 17, 2019 17:53
[2019-08-17] MEDS: Dyna-Hex 2% Top Sol 2oz TOPIC SCH (20:34)
[2019-08-17] MEDS: Acetaminophen 650mg/20.3ml NG PRN (20:40)
--- NOTE | 2019-08-17 22:16 | General Progress Note ---
Assessment/Plan Problem List: (1) HTN (hypertension) ICD Codes: I10 - Essential (primary) hypertension SNOMED: 11406944 (2) CASSANDRA (acute kidney injury) ICD Codes: N17.9 - Acute kidney failure, unspecified SNOMED: 9374996, 23061635 (3) Anemia in chronic kidney disease (CKD) ICD Codes: N18.9 - Chronic kidney disease, unspecified; D63.1 - Anemia in chronic kidney disease SNOMED: 052049066 (4) Renal failure ICD Codes: N19 - Unspecified kidney failure SNOMED: 85700655 (5) Respiratory failure requiring intubation ICD Codes: J96.90 - Respiratory failure, unspecified, unspecified whether with hypoxia or hypercapnia; A41.89 - Other specified sepsis SNOMED: 239106726, 795199365 (6) Pneumonia due to COVID-19 virus ICD Codes: U07.1 - COVID-19; J12.89 - Other viral pneumonia SNOMED: 777323511, 336687894 (7) Sepsis due to severe acute respiratory syndrome coronavirus 2 (SARS-CoV-2) ICD Codes: U07.1 - COVID-19; A41.89 - Other specified sepsis SNOMED: 208131927, 283681421 Status: progressing, unchanged, deteriorating Assessment/Plan: worsening leukocytosis trach and peg fungemia positive blood cx h/o covid diaylsis per renal Subjective ROS Limited/Unobtainable: Yes Allergies: Coded Allergies: No Known Allergies (Unverified , 05/28/19) Objective Last 24 Hour Vital Signs Date Time Temp Pulse Resp B/P (MAP) Pulse Ox O2 Delivery O2 Flow Rate FiO2 08/17/19 21:10 100.4 08/17/19 20:45 Mechanical Ventilator Mechanical Ventilator 08/17/19 20:44 30 08/17/19 20:00 77 08/17/19 20:00 100.9 77 22 101/60 (74) 100 08/17/19 18:50 66 26 30 08/17/19 16:00 Mechanical Ventilator Mechanical Ventilator 08/17/19 16:00 98.5 68 18 97/61 (73) 100 08/17/19 16:00 30 08/17/19 15:58 64 08/17/19 14:47 73 26 30 08/17/19 12:00 Mechanical Ventilator Mechanical Ventilator 08/17/19 12:00 97.4 80 18 106/60 (75) 100 08/17/19 12:00 81 08/17/19 12:00 30 08/17/19 11:09 86 28 30 30 08/17/19 09:08 72 29 30 30 08/17/19 09:00 99 08/17/19 08:05 80 91/54 08/17/19 08:00 Mechanical Ventilator Mechanical Ventilator 08/17/19 08:00 98.1 77 18 83/59 (67) 100 08/17/19 08:00 30 08/17/19 08:00 79 08/17/19 07:01 84 26 30 08/17/19 04:00 Mechanical Ventilator Mechanical Ventilator 08/17/19 04:00 30 08/17/19 04:00 80 08/17/19 04:00 98.7 85 28 88/62 (71) 99 08/17/19 03:51 79 26 30 08/17/19 00:00 Mechanical Ventilator Mechanical Ventilator 08/17/19 00:00 30 08/17/19 00:00 98.2 90 28 98/64 (75) 100 08/17/19 00:00 70 08/16/19 22:53 68 26 30 Intake and Output 08/16/19 08/17/19 19:00 07:00 Intake Total 530 ml 630 ml Output Total 100 ml Balance 430 ml 630 ml Free Water 50 ml 150 ml Tube Feeding 480 ml 480 ml Stool Total 100 ml Hemodialysis UF 0 ml Laboratory Tests 08/17/19 03:20: Random Vancomycin Level 23.6 08/17/19 11:48: POC Whole Blood Glucose [Pending] 08/17/19 16:56: POC Whole Blood Glucose [Pending] Height (Feet): 6 Height (Inches): 1.00 Weight (Pounds): 171 Karishma Mulligan MD Aug 17, 2019 22:16
[2019-08-18 04:31] VITALS: BP 103/53
[2019-08-18] MEDS: Metoclopramide 10mg/2ml Inj IVP SCH (05:20)
[2019-08-18] MEDS: Acetaminophen 650mg/20.3ml NG PRN (05:21)
[2019-08-18] MEDS: NovoLOG Insulin Flexpen SUBQ SCH ×3 (05:23→18:09)
--- NOTE | 2019-08-18 07:03 | Hematology/Onc Progress Note ---
Assessment/Plan Assessment/Plan Assessment and Recs: # Anemia of chronic disease, likely related ot underlying kidney disease has COIVD19++++++ --> hgb trend 9-->8-->7.3-->7.9-->6.8->9.5-->10->8.3-->7.7-->7.1-->8.9->8.8->7.7 -->8.1 ->7.9-->7.7 -->8.2-->8.1 -->7.9-->8.5 -->9->9.2-->9.5-->10.7 -->9.8--> 10.2-->11.8 -->11.9-->8.8 ->9.4->9-->8.3 -->8.5-->9.4->9.8-->9-->8.3-->11.6--> 10.8-->10.5-->10->9.7 --> transfuse as needed, hgb goal >7 --> no evidence of hemolysis --> peripheral smear has been reviewed --> epogen started 3 x a week ==>> transfuse 06/08, 06/15 # Leukocytosis likely related to suspected COVID-19 virus infection --> completed plaquenil --> trend smear as needed --> wbc trend: 4-->11-->14.5-->21-->26-->21->24--.28-->23-->19-->16.2-->21--> 11.2 -->12.5-->12.3-->12.4-->18.5-->18.5-->17->13-->18.2-->22.2-->25-->17.4-->17 -->14.2-->14-->16-->15.5-->9->17->11.5-->12->12-->18 --> pulm is aware --> on abx cefepime/vanc->zosyn/vanc-->dom/vanc-->dom-->levaquin/cefepime--> vanc/zosyn --> vanc --> pressors as needed --> 06/27 covid 19++ --> pressors as needed in icu --> c diff negative 08/08 --> blood cx++ # Thrombocytopenia/Lymphopenia --> likely related to covid19 --> plt 129k-->186k-->251-->285-->384 -->430-->539-->515-->447-->451-->404-->544 -->244 -->393 # Respiratory failure with covid19+ --> s/p vent/trach --> weaning # Possible Pneumonia --> abx completed --> 07/13 cxr: Improved right lung infiltrates. # Cardiomegaly # Transaminitis with Elevated AST # COPD # Chronic Kidney Disease --> per renal hd --> s/p right femoral cath 07/02 # Hypertension # peg # Dvt ppx lovenox Appreciate consultation and ernesto Rn Subjective HEENT: Denies: no symptoms, eye pain, blurred vision, tearing, double vision, ear pain, ear discharge, nose pain, nose congestion, throat pain, throat swelling, mouth pain, mouth swelling, other Cardiovascular: Denies: no symptoms, chest pain, edema, irregular heart rate, lightheadedness, palpitations, syncope, other Respiratory: Denies: no symptoms, cough, shortness of breath, SOB with excertion, SOB at rest, sputum, wheezing, other Gastrointestinal/Abdominal: Denies: no symptoms, abdomen distended, abdominal pain, black stools, tarry stools, blood in stool, constipated, diarrhea, difficulty swallowing, nausea, poor appetite, poor fluid intake, rectal bleeding , vomiting, other Genitourinary: Denies: no symptoms, burning, discharge, frequency, flank pain, hematuria, incontinence, pain, urgency, other Neurologic/Psychiatric: Denies: no symptoms, anxiety, depressed, emotional problems, headache, numbness, paresthesia, pre-existing deficit, seizure, tingling, tremors, weakness, other Hematologic/Lymphatic: Denies: no symptoms, anemia, easy bleeding, easy bruising, adenopathy, other Allergies: Coded Allergies: No Known Allergies (Unverified , 05/28/19) Subjective 06/01 nv, extremely agitated, not allowing labs draws, no night sweats, cbc ordered 06/02 confused, restraints, on abx and plaquenil, hgb 7.9, nrb 15 L 06/03 is with nonrebreather, but not compliant, remains confused 06/05 no bleeding, labs noted, no major bleeding, otherwise comfortable 06/06 labs reviewed, no bleeding, meds noted, no night sweats, on levo and nonrebreather 06/07 labs noted, no bleeding, meds reviewed, no bleeding, wbc higher 06/08 to get 2 units prbc, no night sweats, meds reviewed 06/09 is on cefepime and vanc, labs noted, ernesto Rn, no bleeding 06/10 no major changes, labs reviewed, wbc 28k, on abx, cefepime 06/12 remains in icu, labs noted, no night sweats or bleeding 06/13 sluggish pupils, remains agitated, per psych, no bleding, on vent, wbc sitll high 06/14 still confused, remains on vent, with ng, running nepro, on pressors 06/15 icu, febrile, non verbal, hgb 7.1, blood pending, completed plaq 06/16 remains in the icu, nonverbal, plan for hd tomorrow, ernesto rn 06/17 in icu, on pressor, nonverbal, on abx, no bleeding 06/19 no bleeding, nonverbal in icu, hgb is 7.7 06/20 on zosyn, tube feeds, vent, labs noted, in icu, nv 06/21 gettng hd as per renal, in icu, nv, no bleeding, tfs 06/22 icu, cxr with slight improvement, cooling blanket, weaning today 06/23 wewaning, in icu, on vent, abx, and pressors as needed, labs noted 06/24 failed weaning, off abx, completed plaquenil, hgb 8.1 06/26 icu, weaning for this am, afebrile, hgb 8 06/27 in icu, remains comotose, weaning started on peep, no night sweats 06/28 weaning today, off abx, restraints, no distress, h/h stable 06/29 covid 19+, failed weaning, no blood transfusion needed 06/30 icu, on vent, labs reviewed, no distress 07/01 in icu, may need trach, remains on hd per renal, labs noted 07/02 s/p right fem cath, failed wean, no new orders, h/h stable 07/03 is somewhat more responsive, on abx, no bleeding, weaning and HD today 07/04 hd as per renal, weaning off vent, no bleeding today 07/05 obtunded, no bleding overnight, with hd for tomorrow noted, vanc 07/08 no events, remains with trach/vent, ernesto Rn, no bleeding, cbc is noted 07/09 no overnight events, peg for friday pending consent 07/10 off pressors, vent, restraints, labs reviewed 07/11 no acute events is on pressors, intubated, agitated still 07/12 is resting comfortably, no bleeding, emds reviewed and noted 07/13 icu, no events, trach, cxr reviewed, 07/14 is onv ent, tachypneic and tachycardic, labs noted 07/15 remains confused, intubated, ernesto Rn, no bleeding 07/17 icu, cxr improving infiltrates, levo gtt, airborne/contact isolation 07/18 is on broad spectrum abx, is on levaquin and cefepime, wbc 16 agitated 07/19 icu, levo gtt, cxr unchanged, tachy, hd thursday 07/20 sedated, safety restraints, labs reviewed 07/21 hd was done yesterday, lower pressor requirements, wbc is worse, on abx 07/22 icu, meds and labs reviewed, vent, no distress 07/24 on vent, in icu, labs noted, remains agitated, and confused 07/25 remains obtunded, on vent, on pressor, hgb 9, wbc elev 07/26 icu, levo gtt, vent, iv abx, nonverbal 07/27 failed weaning, labs reviewed, repeat covid swab pending 07/28 labs are noted, no bleeding, on vent/trach gtube feeds ernesto rn 07/29 iuc, restraints, no new changes, vent 07/31 is asleep, comfortable, no events, labs reviewed, restraints+ 08/01 no events, agitated, no bleeding, meds noted, on gtube feeds 08/02 remains on vent, no bleeding, wbc higher 19, hgb 9, on abx 08/03 labs noted, on vent, no bleeding, wbc 17, hgb better 08/04 labs reviewed, no bleeding, does not require prbc, on vent 08/05 more alert, is on trach, vent, no major events, no bleeding, peg+ 08/07 no bleeding no chills, no night sweats, is on vent/trach 08/08 recent covid swab negative, restraints, cxr unchanged 08/09 c diff negative, zosyn, hd today, gtf 08/10 no overnight events, labs reviewed, afebrile 08/11 labs reviewed, meds noted, no fc, no major changes, wbc 12 08/12 abx changed to flucon, on abx, wbc 12 08/14 bp on low end, blood cx++, vanc, vent 08/15 no bleeding, no night sweats, on abx, trach/vent 08/16 is able to nod head in response to question, labs noted, on vent/trach 08/17 labs reviewed, hgb 9.8, no bleeding, on abx, meds noted Objective Objective Current Medications Medications (Trade) Dose Ordered Sig/Anthony Route PRN Reason Start Time Stop Time Status Last Admin Dose Admin Acetaminophen (Tylenol) 650 mg Q4H PRN NG For Pain 08/04/19 21:38 09/03/19 21:37 08/18/19 05:21 Acetaminophen (Tylenol) 650 mg Q4H PRN NG Temp >100.5 08/15/19 13:30 09/08/19 08:29 Chlorhexidine Gluconate (Michelle-Hex 2%) 1 applic DAILY@1999 TOPIC 08/05/19 20:00 09/05/19 19:59 08/17/19 20:34 Dextrose (Dextrose 50%) 25 ml Q30M PRN IV Hypoglycemia 08/04/19 22:00 09/18/19 19:29 Dextrose (Dextrose 50%) 50 ml Q30M PRN IV Hypoglycemia 08/04/19 22:00 09/18/19 19:29 Enoxaparin Sodium (Lovenox) 30 mg DAILY SUBQ 08/05/19 09:00 08/27/19 08:59 08/17/19 08:06 Epoetin Aftab (Epoetin Aftab(ESRD on dialysis)) 10,000 unit SUBQ 08/11/19 21:00 11/09/19 20:59 08/16/19 21:58 Fluconazole (Diflucan) 200 mg DAILY NG 08/13/19 10:24 08/20/19 10:23 08/17/19 08:05 Haloperidol Lactate 5 mg/ Dextrose 56 ml @ 224 mls/hr Q6H PRN IVPB Agitation 08/04/19 21:38 09/18/19 21:37 Hydralazine HCl (Apresoline) 10 mg Q4H PRN IV Blood pressure over 160 systol 08/04/19 21:39 11/02/19 21:38 Insulin Aspart (NovoLOG) EVERY 6 HOURS SUBQ 08/05/19 00:00 09/19/19 00:00 08/18/19 05:23 Loperamide HCl (Imodium) 2 mg Q6H PRN NG Diarrhea 08/16/19 14:16 09/15/19 14:15 08/17/19 08:09 Metoclopramide HCl (Reglan) 5 mg Q8HR IVP 08/05/19 06:00 09/04/19 05:59 08/18/19 05:20 Midodrine (Pro-Amatine) 10 mg THREE TIMES A DAY NG 08/15/19 18:00 11/13/19 17:59 08/17/19 17:35 Pantoprazole (Protonix) 40 mg DAILY IVP 08/05/19 09:00 08/26/19 08:59 08/17/19 08:05 Vancomycin HCl (Vanco pharmacy to dose) 1 ea DAILY PRN MISC Per rx protocol 08/15/19 08:45 09/14/19 08:44 Last 24 Hour Vital Signs Date Time Temp Pulse Resp B/P (MAP) Pulse Ox O2 Delivery O2 Flow Rate FiO2 08/18/19 05:51 100.2 08/18/19 04:36 Mechanical Ventilator Mechanical Ventilator 08/18/19 04:35 30 08/18/19 04:31 100.6 63 22 103/53 (70) 100 08/18/19 03:56 77 08/18/19 03:03 71 26 30 08/18/19 00:16 30 08/18/19 00:00 63 08/18/19 00:00 Mechanical Ventilator Mechanical Ventilator 08/17/19 23:39 98.8 61 26 101/62 (75) 100 08/17/19 22:50 69 26 30 08/17/19 20:45 Mechanical Ventilator Mechanical Ventilator 08/17/19 20:44 30 08/17/19 20:00 77 08/17/19 20:00 100.9 77 22 101/60 (74) 100 08/17/19 18:50 66 26 30 08/17/19 16:00 Mechanical Ventilator Mechanical Ventilator 08/17/19 16:00 98.5 68 18 97/61 (73) 100 08/17/19 16:00 30 08/17/19 15:58 64 08/17/19 14:47 73 26 30 08/17/19 12:00 Mechanical Ventilator Mechanical Ventilator 08/17/19 12:00 97.4 80 18 106/60 (75) 100 08/17/19 12:00 81 08/17/19 12:00 30 08/17/19 11:09 86 28 30 30 08/17/19 09:08 72 29 30 30 08/17/19 09:00 99 08/17/19 08:05 80 91/54 08/17/19 08:00 Mechanical Ventilator Mechanical Ventilator 08/17/19 08:00 98.1 77 18 83/59 (67) 100 08/17/19 08:00 30 08/17/19 08:00 79 08/17/19 07:01 84 26 30 08/17/19 04:00 Mechanical Ventilator Mechanical Ventilator 08/17/19 04:00 30 08/17/19 04:00 80 08/17/19 04:00 98.7 85 28 88/62 (71) 99 08/17/19 03:51 79 26 30 08/17/19 00:00 Mechanical Ventilator Mechanical Ventilator 08/17/19 00:00 30 08/17/19 00:00 98.2 90 28 98/64 (75) 100 08/17/19 00:00 70 08/16/19 22:53 68 26 30 08/16/19 20:12 65 120/70 08/16/19 20:00 Mechanical Ventilator Mechanical Ventilator 08/16/19 20:00 98.5 95 28 120/70 (87) 100 08/16/19 20:00 87 08/16/19 20:00 30 08/16/19 19:54 76 26 30 08/16/19 16:00 30 08/16/19 16:00 90 08/16/19 16:00 98.1 87 28 110/56 (74) 100 08/16/19 16:00 Mechanical Ventilator Mechanical Ventilator 08/16/19 15:47 97 08/16/19 15:39 90 27 30 08/16/19 12:00 30 08/16/19 12:00 Mechanical Ventilator Mechanical Ventilator 08/16/19 12:00 85 08/16/19 12:00 98.1 84 28 125/72 (89) 99 08/16/19 10:39 86 33 30 30 08/16/19 08:50 90 112/71 08/16/19 08:00 Mechanical Ventilator Mechanical Ventilator 08/16/19 08:00 30 08/16/19 08:00 97.0 87 28 122/47 (72) 98 08/16/19 08:00 88 08/16/19 07:24 86 27 30 30 08/16/19 07:16 82 26 30 Intake and Output 08/17/19 08/18/19 19:00 07:00 Intake Total 580 ml 380 ml Balance 580 ml 380 ml Free Water 100 ml 60 ml Tube Feeding 480 ml 320 ml # Bowel Movements 1 1 Labs Test 08/15/19 12:15 08/15/19 17:13 08/15/19 20:26 08/16/19 00:35 POC Whole Blood Glucose 261 MG/DL (74-106) Test 08/16/19 05:18 08/16/19 05:31 08/16/19 12:13 08/16/19 17:18 White Blood Count 18.2 K/UL (4.8-10.8) Red Blood Count 3.42 M/UL (4.70-6.10) Hemoglobin 9.7 G/DL (14.2-18.0) Hematocrit 32.8 % (42.0-52.0) Mean Corpuscular Volume 96 FL (80-99) Mean Corpuscular Hemoglobin 28.4 PG (27.0-31.0) Mean Corpuscular Hemoglobin Concent 29.6 G/DL (32.0-36.0) Red Cell Distribution Width 18.9 % (11.6-14.8) Platelet Count 360 K/UL (150-450) Mean Platelet Volume 7.6 FL (6.5-10.1) Neutrophils (%) (Auto) % (45.0-75.0) Lymphocytes (%) (Auto) % (20.0-45.0) Monocytes (%) (Auto) % (1.0-10.0) Eosinophils (%) (Auto) % (0.0-3.0) Basophils (%) (Auto) % (0.0-2.0) Differential Total Cells Counted 100 Neutrophils % (Manual) 83 % (45-75) Lymphocytes % (Manual) 12 % (20-45) Monocytes % (Manual) 2 % (1-10) Eosinophils % (Manual) 3 % (0-3) Basophils % (Manual) 0 % (0-2) Band Neutrophils 0 % (0-8) Platelet Estimate Adequate Platelet Morphology Normal Polychromasia 1+ Hypochromasia 1+ Anisocytosis 1+ Sodium Level 145 MMOL/L (136-145) Potassium Level 5.0 MMOL/L (3.5-5.1) Chloride Level 101 MMOL/L (98-107) Carbon Dioxide Level 27 MMOL/L (21-32) Anion Gap 17 mmol/L (5-15) Blood Urea Nitrogen 85 mg/dL (7-18) Creatinine 8.0 MG/DL (0.55-1.30) Estimat Glomerular Filtration Rate 6.8 mL/min (>60) Glucose Level 221 MG/DL (74-106) Uric Acid 9.7 MG/DL (2.6-7.2) Calcium Level 10.1 MG/DL (8.5-10.1) Phosphorus Level 3.4 MG/DL (2.5-4.9) Magnesium Level 2.4 MG/DL (1.8-2.4) Total Bilirubin 0.4 MG/DL (0.2-1.0) Aspartate Amino Transf (AST/SGOT) 19 U/L (15-37) Alanine Aminotransferase (ALT/SGPT) 14 U/L (12-78) Alkaline Phosphatase 158 U/L (46-116) C-Reactive Protein, Quantitative 5.7 mg/dL (0.00-0.90) Pro-B-Type Natriuretic Peptide 6480 pg/mL (0-125) Total Protein 9.3 G/DL (6.4-8.2) Albumin 3.4 G/DL (3.4-5.0) Globulin 5.9 g/dL Albumin/Globulin Ratio 0.6 (1.0-2.7) Random Vancomycin Level 27.2 ug/mL POC Whole Blood Glucose 196 MG/DL (74-106) Test 08/16/19 23:06 08/17/19 03:20 08/17/19 06:00 08/17/19 11:48 POC Whole Blood Glucose 194 MG/DL (74-106) 205 MG/DL (74-106) Random Vancomycin Level 23.6 ug/mL Test 08/17/19 16:56 08/17/19 23:35 08/18/19 05:20 POC Whole Blood Glucose 200 MG/DL (74-106) 180 MG/DL (74-106) Height (Feet): 6 Height (Inches): 1.00 Weight (Pounds): 169 Objective General: nv, confused, sedated Heent: bilateral eye normal inspection, bilateral eye PERRL ++Ng Respiratory: normal breath sounds, no respiratory distress, intubated/vent +++ trach+++ Cardiovascular: regular rate, rhythm, no edema Gastrointestinal: normal inspection, soft, non-distended, peg+ Rectal: deferred Musculoskeletal: normal range of motion, non-tender, R fem cath++ Neurologic: alert, motor strength/tone normal, sensory intact, responsive, speech normal Skin: Decubitus/Ulcer - See RN skin exam. : jamaal+ Greg Cabral MD Aug 18, 2019 07:02
[2019-08-18 08:00] VITALS: BP 105/55
--- NOTE | 2019-08-18 08:56 | Surgery Progress Note ---
Surgery Progress Note Subjective Procedure Performed Left internal jugular temporary hemodialysis catheter removal Additional Comments more comfortable relaxed no n/v/f/c Objective Last 24 Hour Vital Signs Date Time Temp Pulse Resp B/P (MAP) Pulse Ox O2 Delivery O2 Flow Rate FiO2 08/18/19 08:00 30 08/18/19 08:00 97.5 67 26 105/55 (72) 100 08/18/19 05:51 100.2 08/18/19 04:36 Mechanical Ventilator Mechanical Ventilator 08/18/19 04:35 30 08/18/19 04:31 100.6 63 22 103/53 (70) 100 08/18/19 03:56 77 08/18/19 03:03 71 26 30 08/18/19 00:16 30 08/18/19 00:00 63 08/18/19 00:00 Mechanical Ventilator Mechanical Ventilator 08/17/19 23:39 98.8 61 26 101/62 (75) 100 08/17/19 22:50 69 26 30 08/17/19 20:45 Mechanical Ventilator Mechanical Ventilator 08/17/19 20:44 30 08/17/19 20:00 77 08/17/19 20:00 100.9 77 22 101/60 (74) 100 08/17/19 18:50 66 26 30 08/17/19 16:00 Mechanical Ventilator Mechanical Ventilator 08/17/19 16:00 98.5 68 18 97/61 (73) 100 08/17/19 16:00 30 08/17/19 15:58 64 08/17/19 14:47 73 26 30 08/17/19 12:00 Mechanical Ventilator Mechanical Ventilator 08/17/19 12:00 97.4 80 18 106/60 (75) 100 08/17/19 12:00 81 08/17/19 12:00 30 08/17/19 11:09 86 28 30 30 08/17/19 09:08 72 29 30 30 08/17/19 09:00 99 I&O Intake and Output 08/17/19 08/18/19 19:00 07:00 Intake Total 580 ml 560 ml Balance 580 ml 560 ml Free Water 100 ml 120 ml Tube Feeding 480 ml 440 ml # Bowel Movements 1 2 Dressing: other Wound: other Drains: other Cardiovascular: RSR Respiratory: decreased breath sounds Abdomen: soft, non-tender, present bowel sounds Extremities: no edema, no tenderness, no cyanosis Laboratory Tests Test 08/17/19 11:48 08/17/19 16:56 08/17/19 23:35 08/18/19 05:20 POC Whole Blood Glucose Pending Pending 200 MG/DL (74-106) H 180 MG/DL (74-106) H Plan Problems: (1) Suspected COVID-19 virus infection (2) HTN (hypertension) (3) CASSANDRA (acute kidney injury) Assessment & Plan: Needs urgent HD needs access patient okay and consented see note will follow with recs new line placed discussed with team and nephrology HD line functional when checked has TPA now please use appropriately Cathflo used again this flow during dialysis on 430 was low. Will monitor may need line change 06/13 plan for HD as per renal may need to take fluid off with HD edema anasarca dressings saturated and changed will monitor cont with HD IJ left line placed for HD given extent of prior line in place. leukocytosis blood cx negative may need to change out line new line okay HD going well Continue HD as tolerated May need pressors for HD as needed (4) Anemia in chronic kidney disease (CKD) (5) Anemia (6) Renal failure (7) Suspected COVID-19 virus infection Assessment & Plan: Pt deconditioned and despite all skin preventions Pt noted to have developed several pressure injuries. . Stable dry eschar noted to clefts of R and L ears. No erythema noted . DTPI noted to L trochanter. Base of injury is maroon in colour with marginal erythema along borders. Partially opened DTPI Sacrum, R and L Buttocks. Base of wound is maroon with two small open wounds L sacrum and L buttocks. Pt has an APM/MOMO Mattress overlay and is being positioned with pillows as per tolerance and within protocols. worsening despite medical efforts will cont to provide therapy Tx.Plan: Apply Cavilon Skin Barrier to both ears Daily and prn. Apply Moisture Barrier Paste to Sacrum,R and L Buttocks. Cover with Optifoam drsgs. Change every 3 days and PRN. Apply Cavilon Skin Barrier to R and L trochanter. Cover each site with Optifoam drsgs.Change every 7 days and PRN. Apply Cavilon Skin Barrier to both heels. Cover each heel with Optifoam drsg. Change every 7 days and prn. Off-load heels with pillow. Reposition at least every 2hours or as tolerated. APM/MOMO Mattress overlay. (8) COVID-19 Assessment & Plan: COVID + c diff negative febrile leukocytosis renal insufficiency see above cont resp care Rx as per ID worsening on vent support now cxr noted on pressors prognosis guarded repeat covid ++ weaning vent and pressors off slowly showing improvement slowly recovering will need trach as unable to wean vent safely called and spoke with country conservatorship. consent obtained s/p trach pending peg worsening on levo max (9) Sepsis Assessment & Plan: worsening leukocytosis febrile on pressors discussed with ID. lines evaluated and clean. he is septic on pressors and needs central access in difficult venous access patient blood cultures negative will monitor temp HD cath out now with permacath left tlc still subclavian needed line c/d/i line negative c diff negative wbc resolved improved d/c planning febrile leukocytosis hold d/c infectious work up in place yeast in cultures fevers persistent fungemia abx as per ID hold on line removal cont abx repeat cx Yaniv Mast Aug 18, 2019 08:56
[2019-08-18] MEDS: Pantoprazole Inj IVP SCH (09:16)
[2019-08-18] MEDS: Fluconazole 100mg tab NG SCH (09:17)
[2019-08-18] MEDS: Midodrine 10mg tab NG SCH ×3 (09:17→18:11)
[2019-08-18] MEDS: Enoxaparin 30mg Inj SUBQ SCH (09:19)
--- NOTE | 2019-08-18 10:25 | General Progress Note ---
Assessment/Plan Status: progressing, unchanged, deteriorating Assessment/Plan: 1. Diabetes. 2. Hypertension. 3. Coronary artery disease. 4. COPD. 5. Psychiatric disorder with schizophrenia. 6. History of hepatitis C. 7. HLP. 8. Chronic kidney disease, now with acute renal failure. 9. Anemia. 10. Hypothyroidism. 11. Spinal stenosis. 12. Constipation. 13. GERD. 14. COVID positive HD per nephrology fu labs s/p PEG GTF TF at 40 cc imodium lomotil neg C.diff dc reglan monitor for residuals Subjective ROS Limited/Unobtainable: No Allergies: Coded Allergies: No Known Allergies (Unverified , 05/28/19) Objective Last 24 Hour Vital Signs Date Time Temp Pulse Resp B/P (MAP) Pulse Ox O2 Delivery O2 Flow Rate FiO2 08/18/19 08:00 30 08/18/19 08:00 97.5 67 26 105/55 (72) 100 08/18/19 07:22 75 26 30 08/18/19 05:51 100.2 08/18/19 04:36 Mechanical Ventilator Mechanical Ventilator 08/18/19 04:35 30 08/18/19 04:31 100.6 63 22 103/53 (70) 100 08/18/19 03:56 77 08/18/19 03:03 71 26 30 08/18/19 00:16 30 08/18/19 00:00 63 08/18/19 00:00 Mechanical Ventilator Mechanical Ventilator 08/17/19 23:39 98.8 61 26 101/62 (75) 100 08/17/19 22:50 69 26 30 08/17/19 20:45 Mechanical Ventilator Mechanical Ventilator 08/17/19 20:44 30 08/17/19 20:00 77 08/17/19 20:00 100.9 77 22 101/60 (74) 100 08/17/19 18:50 66 26 30 08/17/19 16:00 Mechanical Ventilator Mechanical Ventilator 08/17/19 16:00 98.5 68 18 97/61 (73) 100 08/17/19 16:00 30 08/17/19 15:58 64 08/17/19 14:47 73 26 30 08/17/19 12:00 Mechanical Ventilator Mechanical Ventilator 08/17/19 12:00 97.4 80 18 106/60 (75) 100 08/17/19 12:00 81 08/17/19 12:00 30 08/17/19 11:09 86 28 30 30 Intake and Output 08/17/19 08/18/19 19:00 07:00 Intake Total 580 ml 560 ml Balance 580 ml 560 ml Free Water 100 ml 120 ml Tube Feeding 480 ml 440 ml # Bowel Movements 1 2 Laboratory Tests 08/17/19 11:48: POC Whole Blood Glucose [Pending] 08/17/19 16:56: POC Whole Blood Glucose [Pending] 08/17/19 23:35: POC Whole Blood Glucose 200H 08/18/19 05:20: POC Whole Blood Glucose 180H Height (Feet): 6 Height (Inches): 1.00 Weight (Pounds): 169 General Appearance: no apparent distress EENT: normal ENT inspection Neck: supple Cardiovascular: normal rate Respiratory/Chest: decreased breath sounds Abdomen: normal bowel sounds, non tender, soft Extremities: non-tender Marito Ramires MD Aug 18, 2019 10:25
--- NOTE | 2019-08-18 10:51 | Infectious Diseases Prog Note ---
Assessment/Plan Assessment/Plan IMPRESSION: 1. COVID19 pneumonia Positive: 05/27, 05/31 , 06/05, 06/09 ,06/17, 06/19, 06/23, 06/27, 07/03, 07/15, 07/29 Negative: 07/26, 08/04, 08/05 2. MRSA carrier. 3. Chronic kidney disease , end-stage renal disease. 4. COPD. 5. Hypertension. 6. Anemia. 7. Hypothyroidism. 8. Hyperlipidemia. 9. Major depression. 10. Leukocytosis 11. Hypotension 12. Hepatitis C 13. Hyperuricemia 14. Diarrhea, C difficile negative 15. septic shock 16.Sepsis blood cultures 08/08 & 08/12 : yeast blood culture: Staph Coagulase negative 17. Pneumonia with Staph aureus ( MRSA) 18. Candidal sepsis 19. Diarrhea, C. difficile negative RECOMMENDATIONS: continue Fluconazole & Vancomycin Will need change of PermCath F/u CBC & CXR Case was D/W primary MD Subjective ROS Limited/Unobtainable: Yes Constitutional: Reports: fever, other - Tz=153.9 Allergies: Coded Allergies: No Known Allergies (Unverified , 05/28/19) Objective Last 24 Hour Vital Signs Date Time Temp Pulse Resp B/P (MAP) Pulse Ox O2 Delivery O2 Flow Rate FiO2 08/18/19 08:00 30 08/18/19 08:00 97.5 67 26 105/55 (72) 100 08/18/19 07:22 75 26 30 08/18/19 05:51 100.2 08/18/19 04:36 Mechanical Ventilator Mechanical Ventilator 08/18/19 04:35 30 08/18/19 04:31 100.6 63 22 103/53 (70) 100 08/18/19 03:56 77 08/18/19 03:03 71 26 30 08/18/19 00:16 30 08/18/19 00:00 63 08/18/19 00:00 Mechanical Ventilator Mechanical Ventilator 08/17/19 23:39 98.8 61 26 101/62 (75) 100 08/17/19 22:50 69 26 30 08/17/19 20:45 Mechanical Ventilator Mechanical Ventilator 08/17/19 20:44 30 08/17/19 20:00 77 08/17/19 20:00 100.9 77 22 101/60 (74) 100 08/17/19 18:50 66 26 30 08/17/19 16:00 Mechanical Ventilator Mechanical Ventilator 08/17/19 16:00 98.5 68 18 97/61 (73) 100 08/17/19 16:00 30 08/17/19 15:58 64 08/17/19 14:47 73 26 30 08/17/19 12:00 Mechanical Ventilator Mechanical Ventilator 08/17/19 12:00 97.4 80 18 106/60 (75) 100 08/17/19 12:00 81 08/17/19 12:00 30 08/17/19 11:09 86 28 30 30 Height (Feet): 6 Height (Inches): 1.00 Weight (Pounds): 169 HEENT: status post trach Respiratory/Chest: crackles/rales, rhonchi - bilaterally, other - on ventilator Cardiovascular: normal rate, other - Permacath Abdomen: soft, non tender, other - GT feeding Extremities: no edema Neurologic/Psychiatric: alert, responsive Microbiology Date/Time Source Procedure Growth Status 08/18/19 04:00 Stool Clostridium difficile Toxin Assay - Final Complete Laboratory Tests Test 08/17/19 11:48 08/17/19 16:56 08/17/19 23:35 08/18/19 05:20 POC Whole Blood Glucose Pending Pending 200 MG/DL (74-106) H 180 MG/DL (74-106) H Current Medications Medications (Trade) Dose Ordered Sig/Anthony Route PRN Reason Start Time Stop Time Status Last Admin Dose Admin Acetaminophen (Tylenol) 650 mg Q4H PRN NG For Pain 08/04/19 21:38 09/03/19 21:37 08/18/19 05:21 Acetaminophen (Tylenol) 650 mg Q4H PRN NG Temp >100.5 08/15/19 13:30 09/08/19 08:29 Chlorhexidine Gluconate (Michelle-Hex 2%) 1 applic DAILY@2000 TOPIC 08/05/19 20:00 09/05/19 19:59 08/17/19 20:34 Dextrose (Dextrose 50%) 25 ml Q30M PRN IV Hypoglycemia 08/04/19 22:00 09/18/19 19:29 Dextrose (Dextrose 50%) 50 ml Q30M PRN IV Hypoglycemia 08/04/19 22:00 09/18/19 19:29 Diphenoxylate HCl/ Atropine (Lomotil) 2.5 mg BID ORAL 08/18/19 18:00 09/17/19 17:59 Enoxaparin Sodium (Lovenox) 30 mg DAILY SUBQ 08/05/19 09:00 08/27/19 08:59 08/18/19 09:19 Epoetin Aftab (Epoetin Aftab(ESRD on dialysis)) 10,000 unit SUBQ 08/11/19 21:00 11/09/19 20:59 08/16/19 21:58 Fluconazole (Diflucan) 200 mg DAILY NG 08/13/19 10:24 08/20/19 10:23 08/18/19 09:17 Haloperidol Lactate 5 mg/ Dextrose 56 ml @ 224 mls/hr Q6H PRN IVPB Agitation 08/04/19 21:38 09/18/19 21:37 Hydralazine HCl (Apresoline) 10 mg Q4H PRN IV Blood pressure over 160 systol 08/04/19 21:39 11/02/19 21:38 Insulin Aspart (NovoLOG) EVERY 6 HOURS SUBQ 08/05/19 00:00 09/19/19 00:00 08/18/19 05:23 Loperamide HCl (Imodium) 2 mg Q6H NG 08/18/19 14:00 09/15/19 13:59 Midodrine (Pro-Amatine) 10 mg THREE TIMES A DAY NG 08/15/19 18:00 11/13/19 17:59 08/18/19 09:17 Pantoprazole (Protonix) 40 mg DAILY IVP 08/05/19 09:00 08/26/19 08:59 08/18/19 09:16 Vancomycin HCl (Vanco pharmacy to dose) 1 ea DAILY PRN MISC Per rx protocol 08/15/19 08:45 09/14/19 08:44 Ted Leyva MD Aug 18, 2019 10:51
--- NOTE | 2019-08-18 11:00 | Nephrology Progress Note ---
Assessment/Plan Problem List: (1) CASSANDRA (acute kidney injury) (2) Anemia in chronic kidney disease (CKD) (3) HTN (hypertension) (4) COVID-19 Assessment Acute renal failure most likely superimposed on chronic kidney disease Suspected COVID-19 virus infection Possible Pneumonia, lymphopenia, elevated AST Cardiomegaly, possible CHF COPD Hypertension Anemia, most likely related to chronic kidney disease Plan August 17: Last dialysis August 15, no blood work done today yet. Will reassess if dialysis should be continued. Continue per current management. We will make arrangement to DC permacath and reinsert a new one via general surgery and or interventional radiology August 16: Albumin for low BP. Continue to monitor renal parameters. August 15: Due for dialysis today. Remains borderline low. No ultrafiltration during dialysis. Discussed with SHANIQUE Macdonald. August 14: No labs done today. Patient hypotensive. Normal saline and albumin bolus given. Midodrin started. Will check lab tomorrow. August 13: Lab reviewed. Last dialysis yesterday. Next dialysis August 15. Potassium and phosphorus supplement given. Continue per consultants. August 12: No can panel done today. Due for dialysis today. Continue per consultants. August 11: Patient labs reviewed. Will order dialysis tomorrow. Continue per consultants. August 10: Patient was dialyzed yesterday. Today's labs checked. Stable from renal standpoint to view August 09: Patient scheduled for hemodialysis today. Will check labs tomorrow. August 08: Lab reviewed. Hemodialysis scheduled for tomorrow. August 07: Dialyzed yesterday. No labs drawn today. Will check labs tomorrow. Continue per consultants. August 06: Patient on dialysis now. Discussed with dialysis nurse. Slight catheter malfunction persist. August 05: Labs reviewed. Dialysis scheduled for tomorrow. Continue per consultants. August 04: No labs done today. Dialyzed yesterday. Check labs tomorrow. Continue per consultants. August 03: Lab reviewed. Due for dialysis today. White blood cell 17,500. August 02: Lab reviewed. Low phosphorus replaced. Hemodialysis ordered for tomorrow. White blood cells over 18,000. August 01: Labs reviewed. Potassium replacement ordered. Remains full code on ventilator via trach. Continue per consultants. July 31: Dialyzed yesterday. No can panel today. Remains full code. Remains on ventilator. Being fed through PEG. Continue per consultants. July 30: Patient due for dialysis today. Labs are reviewed. Remains full code. Status post trach to ventilator. Status post PEG. July 29: Patient dialyzed yesterday. Due for dialysis tomorrow. Remains in ICU. Full code. Status post trach tube to ventilator. Status post PEG. July 28: Due for dialysis today. Labs reviewed. Full code. Patient trached and vented. July 27: Last COVID test negative. COVID test will be repeated tomorrow. Will order dialysis tomorrow. Remains full code. Medication list and labs reviewed. July 26: No labs done today. Dialysis done yesterday. Will check lab tomorrow. Dialysis as needed. July 25: Lab reviewed. Dialysis today. Discussed with RN. July 24: Lab reviewed. Do dialysis tomorrow. Discussed with RN. July 23: Lab reviewed. Dialyzed yesterday. Discussed with RN. Remains full code. Next dialysis July 25. Will check labs tomorrow. July 22: Labs reviewed. Due for dialysis today. Discussed with RN. Watch borderline low blood pressure. Discussed with dialysis nurse. July 21: Today's lab reviewed. Will arrange for dialysis tomorrow. Discussed with RN. Aim to keep the blood pressure above 100 systolic. Continue per consultants. July 20: Patient was dialyzed yesterday. Could not ultrafiltrate much due to low blood pressure. Discussed with SHANIQUE Dick today. No labs drawn today. Continue per consultants. July 19: Due for dialysis today. Discussed with SHANIQUE Dick. Continue per consultants. July 18: Dialyzed July 16. Will order dialysis tomorrow July 19. Continues to be on ventilator through trach. No labs done today. Continue per consultants. July 17: Dialyzed yesterday. Stable from renal standpoint of view. Remains full code. Status post trach on vent. Status post PEG. Continue per consultants. July 16: Dialysis today. Will resume Midodrin to prevent hypotension. Patient remains full code. July 15: Dialyzed yesterday, due for dialysis tomorrow. Labs and medication list reviewed. Continue per consultants. Patient remains full code. COVID-19 detected again. July 14: Patient currently on dialysis. This is continuation of dialysis from yesterday as yesterday's dialysis was cut short due to catheter malfunction. Labs and medication reviewed. Continue per consultants. Mackenzie 3: Patient currently on hemodialysis. The dialysis catheter which is a intrajugular Kamlesh has poor flow. Will try TPA. Continue per consultants. July 12: Due for PEG today. Due for dialysis tomorrow. Continue per consultants. Discussed with RN. July 11: Plan for dialysis today. Discussed with RN. Data reviewed. July 10: Plan for dialysis tomorrow July 11. Waiting for consent to proceed with PEG. Continue per consultants. Medication reviewed. Labs reviewed. Discussed with RN. July 09: Dialyzed yesterday. Labs reviewed. Medication reviewed. Next hemodialysis July 11. July 08: Patient has tracheostomy now. Connected to ventilator. Due for dialysis today. Continue per consultants. Discussed with SHANIQUE Romero. July 07: Patient is due for tracheostomy today. Patient was last dialyzed July 05. Will order dialysis for tomorrow. July 06: Patient is intubated on ventilator however the plan is to extubate today. Patient was dialysis yesterday July 05. The dialysis time was cut short due to patient's respiratory distress. Only 1 L was removed during dialysis yesterday. Today's lab reviewed. Continue per consultants. Will arrange for dialysis as needed. July 05: Patient due for dialysis today. Remains intubated. Will schedule permacath placement in a.m. blood cultures on July 04 are negative. July 04: Patient was dialyzed yesterday. Due for dialysis tomorrow. Continues to be intubated. After tomorrow's dialysis will order a permacath. July 03: Dialysis is about to be started now Continues to be intubated Will plan to remove the femoral dialysis catheter and exchanged for a new temporary catheter per ID recommendation We will check surveillance blood culture tomorrow July 02: Patient was dialyzed yesterday and due for dialysis tomorrow Stable from renal standpoint W on dialysis Continue per consultants, weaning....... etc. July 01: Dialysis today Other status unchanged June 30: Due for dialysis tomorrow Remains intubated on ventilator Labs and medication reviewed Discussed with RN Stable from renal standpoint of view June 29: Dialyzed yesterday Due for dialysis tomorrow Stable from renal standpoint to view Keeps failing weaning process June 28: Patient due for dialysis today Stable from renal standpoint to view Continue per consultants June 27: Labs reviewed Due due for dialysis June 28 Discussed with SHANIQUE Dick Continue per consultants Remains intubated on ventilator June 26 Labs reviewed Dialyzed yesterday Started on weaning today Continue to monitor renal parameters June 16: On dialysis now Potassium supplement implemented Continue per consultants Next dialysis June 27June 15: Status unchanged Dialyzed yesterday will dialyze again tomorrow Potassium supplements given Discussed with RN June 14: Due dialysis today Status: Remains intubated on ventilator June 22: Status unchanged Dialyzed yesterday and duefordialysistomorrow Serum sodium stable today June 21 Remains intubated on ventilator Due dialysis today Emphasized high sodium bath for dialysis June 20: Remains intubated on ventilator Dialyzed June 19 next dialysis June 21 Serum sodium 128, will give 250 cc 3% saline Remains full code Discussed with RN Iron panel ordered June 19: Discussed with RN. Patient due for dialysis today. Continue pulmonary support. Remains full code. June 18: Patient dialyzed yesterday June 17 Serum sodium improved but still low Arrange for dialysis tomorrow June 19 Continue per consultants June 17: Due for dialysis today Today's lab reviewed, low serum sodium noted, Emphasized on high sodium bath to dialysis nurse Discussed with SHANIQUE Yuen June 7: Dialyzed yesterday Remains intubated Labs reviewed, serum sodium 131 Plan to dialyze tomorrow June 17 with high sodium bath Discussed with SHANIQUE Yuen June 6: Due for dialysis today Labs reviewed Discussed with RN Transfuse 1 unit of packed RBCs today for low hemoglobin of 7.1 June 5: Blood pressure well maintained Receive dialysis June 13 next hemodialysis June 15June 4: Discussed with RN in ICU Patient did not receive proper dialysis yesterday due to dialysis catheter malfunction Catheter to be adjusted today and dialyzed to be resumed today Continue per consultants Positive for COVID 28 June 2: Patient now intubated on mechanical ventilation Discussed with SHANIQUE Yuen, today June 12 Patient received dialysis yesterday June 10 next hemodialysis June 12 Blood pressure better maintained Today's labs reviewed Continue per consultants Previously patient received dialysis last evening June 05, next dialysis June 07 which was incomplete due to patient's hypotension Will start on midodrine for blood pressure support. Meanwhile continue other pressors as needed Previously Patient is doing poorly, septic, white blood cells are rising, Hypotension somewhat improved We will keep n.p.o. , NG tube for medications, and change medication to IV as needed Patient remains full code Monitor vancomycin level Previously: Patient pulled out his femoral catheter yesterday June 03 which was reinserted by Dr. Mast Patient scheduled for dialysis again June 04, which again was not done due to dialysis nurse citing catheter malfunction Meanwhile continue management per ID, pulmonary , and psych. Meanwhile white blood cell count is rising. Patient blood pressure borderline low. Will check ABG Previously May 31 : I believe patient need dialysis treatment He however needs to competency assessment if can make decisions or not I will communicate with Dr. Mulligan Previously: Per pulmonary and ID advice Adjust blood pressure medication Renal diet Anemia work-up 2D echocardiogram refused Kidney ultrasound refused Jules catheter Urine studies Per orders Subjective ROS Limited/Unobtainable: Yes Objective Objective Last 24 Hour Vital Signs Date Time Temp Pulse Resp B/P (MAP) Pulse Ox O2 Delivery O2 Flow Rate FiO2 08/18/19 08:00 30 08/18/19 08:00 97.5 67 26 105/55 (72) 100 08/18/19 07:22 75 26 30 08/18/19 05:51 100.2 08/18/19 04:36 Mechanical Ventilator Mechanical Ventilator 08/18/19 04:35 30 08/18/19 04:31 100.6 63 22 103/53 (70) 100 08/18/19 03:56 77 08/18/19 03:03 71 26 30 08/18/19 00:16 30 08/18/19 00:00 63 08/18/19 00:00 Mechanical Ventilator Mechanical Ventilator 08/17/19 23:39 98.8 61 26 101/62 (75) 100 08/17/19 22:50 69 26 30 08/17/19 20:45 Mechanical Ventilator Mechanical Ventilator 08/17/19 20:44 30 08/17/19 20:00 77 08/17/19 20:00 100.9 77 22 101/60 (74) 100 08/17/19 18:50 66 26 30 08/17/19 16:00 Mechanical Ventilator Mechanical Ventilator 08/17/19 16:00 98.5 68 18 97/61 (73) 100 08/17/19 16:00 30 08/17/19 15:58 64 08/17/19 14:47 73 26 30 08/17/19 12:00 Mechanical Ventilator Mechanical Ventilator 08/17/19 12:00 97.4 80 18 106/60 (75) 100 08/17/19 12:00 81 08/17/19 12:00 30 08/17/19 11:09 86 28 30 30 Intake and Output 08/17/19 08/18/19 19:00 07:00 Intake Total 580 ml 560 ml Balance 580 ml 560 ml Free Water 100 ml 120 ml Tube Feeding 480 ml 440 ml # Bowel Movements 1 2 Today's can panel not done yet Laboratory Tests 08/17/19 11:48: POC Whole Blood Glucose [Pending] 08/17/19 16:56: POC Whole Blood Glucose [Pending] 08/17/19 23:35: POC Whole Blood Glucose 200H 08/18/19 05:20: POC Whole Blood Glucose 180H Height (Feet): 6 Height (Inches): 1.00 Weight (Pounds): 169 General Appearance: no apparent distress EENT: other - Trached and vent Cardiovascular: normal rate Respiratory/Chest: decreased breath sounds Abdomen: soft Objective No change Mic Cole MD Aug 18, 2019 11:00
[2019-08-18 12:00] VITALS: BP 113/73
--- NOTE | 2019-08-18 12:55 | Cardiac Electrophysiology PN ---
Assessment/Plan Assessment/Plan 1. NSTEMI type 2. Low level and flat due to renal failure. On Aspirin. EF 60%. 2. S/P Septic shock. On Abx. BP dropped to 80 again. Better after NS and Albumin and OFF lopressor 3. ESRD, on HD per Dr. Cole. S/P PermCath placement by IR 4. VDRF due to COVID pneumonia. S/P Tracheostomy 07/08/19. 5. Atrial fib with RVR. DCed Lopressor for Low BP 6. Dysphagia, S/P PEG 07/13/19 7. COPD. 8. Anemia. DW RN Subjective Subjective In SDU on the vent via trach. Off pressors. Fio2 30% Covid positive x 10. Off isolation. BP better Objective Last 24 Hour Vital Signs Date Time Temp Pulse Resp B/P (MAP) Pulse Ox O2 Delivery O2 Flow Rate FiO2 08/18/19 12:00 97.1 77 23 113/73 (86) 100 08/18/19 12:00 30 08/18/19 11:00 89 30 30 30 08/18/19 08:00 30 08/18/19 08:00 97.5 67 26 105/55 (72) 100 08/18/19 08:00 68 08/18/19 07:22 75 26 30 08/18/19 05:51 100.2 08/18/19 04:36 Mechanical Ventilator Mechanical Ventilator 08/18/19 04:35 30 08/18/19 04:31 100.6 63 22 103/53 (70) 100 08/18/19 03:56 77 08/18/19 03:03 71 26 30 08/18/19 00:16 30 08/18/19 00:00 63 08/18/19 00:00 Mechanical Ventilator Mechanical Ventilator 08/17/19 23:39 98.8 61 26 101/62 (75) 100 08/17/19 22:50 69 26 30 08/17/19 20:45 Mechanical Ventilator Mechanical Ventilator 08/17/19 20:44 30 08/17/19 20:00 77 08/17/19 20:00 100.9 77 22 101/60 (74) 100 08/17/19 18:50 66 26 30 08/17/19 16:00 Mechanical Ventilator Mechanical Ventilator 08/17/19 16:00 98.5 68 18 97/61 (73) 100 08/17/19 16:00 30 08/17/19 15:58 64 08/17/19 14:47 73 26 30 Intake and Output 08/17/19 08/18/19 19:00 07:00 Intake Total 580 ml 560 ml Balance 580 ml 560 ml Free Water 100 ml 120 ml Tube Feeding 480 ml 440 ml # Bowel Movements 1 2 Laboratory Tests Test 08/17/19 16:56 08/17/19 23:35 08/18/19 05:20 POC Whole Blood Glucose Pending 200 MG/DL (74-106) H 180 MG/DL (74-106) H Microbiology Date/Time Source Procedure Growth Status 08/18/19 04:00 Stool Clostridium difficile Toxin Assay - Final Complete Objective HEAD AND NECK: No JVD. Tracheostomy in place. Left IJ HD catheter now in place. Right IJ PermCath in place LUNGS: Decreased breath sounds. CARDIOVASCULAR: Regular S1 and S2. Tachycardic. ABDOMEN: Soft. PEG in place EXTREMITIES: No pitting edema. Gio Baker MD Aug 18, 2019 12:55
[2019-08-18 16:00] VITALS: BP 106/70
--- NOTE | 2019-08-18 16:28 | Diagnostic Imaging Report ---
Indication: Chest pain Technique: One view of the chest Comparison: 08/12/2019 Findings: Current film less heavily exposed and inspiration is less optimal. Slight apparent interstitial prominence is probably artifact of these 2 factors. No definite acute infiltrates, effusions, or congestion. The heart size is upper limits normal. Tracheostomy, right jugular tunneled dialysis catheter again demonstrated Impression: Findings as noted. No definite acute process or significant interim change
[2019-08-18] MEDS ORDERED: NS 275ml ONE (17:00)
[2019-08-18] MEDS: Lomotil 2.5mg tab ORAL SCH (18:11)
[2019-08-18 20:00] VITALS: BP 120/68
[2019-08-18] MEDS: Dyna-Hex 2% Top Sol 2oz TOPIC SCH (20:12)
[2019-08-18] MEDS: Epoetin Alfa-EPBX(ESRD on dialysis)10,000 unit/ml vial SUBQ SCH (20:55)
--- NOTE | 2019-08-18 21:59 | General Progress Note ---
Assessment/Plan Problem List: (1) HTN (hypertension) ICD Codes: I10 - Essential (primary) hypertension SNOMED: 65321001 (2) CASSANDRA (acute kidney injury) ICD Codes: N17.9 - Acute kidney failure, unspecified SNOMED: 1336446, 18789538 (3) Anemia in chronic kidney disease (CKD) ICD Codes: N18.9 - Chronic kidney disease, unspecified; D63.1 - Anemia in chronic kidney disease SNOMED: 014368610 (4) Renal failure ICD Codes: N19 - Unspecified kidney failure SNOMED: 48094298 (5) Respiratory failure requiring intubation ICD Codes: J96.90 - Respiratory failure, unspecified, unspecified whether with hypoxia or hypercapnia; A41.89 - Other specified sepsis SNOMED: 412110534, 805452842 (6) Pneumonia due to COVID-19 virus ICD Codes: U07.1 - COVID-19; J12.89 - Other viral pneumonia SNOMED: 609615342, 150765050 (7) Sepsis due to severe acute respiratory syndrome coronavirus 2 (SARS-CoV-2) ICD Codes: U07.1 - COVID-19; A41.89 - Other specified sepsis SNOMED: 784169599, 342293280 Status: progressing, unchanged, deteriorating Assessment/Plan: 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 so will need to be removed and replace per and by renal once cleared by ID trach and peg fungemia positive blood cx h/o covid diaylsis per renal Subjective ROS Limited/Unobtainable: Yes Allergies: Coded Allergies: No Known Allergies (Unverified , 05/28/19) Objective Last 24 Hour Vital Signs Date Time Temp Pulse Resp B/P (MAP) Pulse Ox O2 Delivery O2 Flow Rate FiO2 08/18/19 20:00 Mechanical Ventilator 15.0 Mechanical Ventilator 15.0 08/18/19 20:00 98.4 77 26 120/68 (85) 100 08/18/19 20:00 30 08/18/19 20:00 89 08/18/19 18:37 89 26 30 08/18/19 16:00 30 08/18/19 16:00 97.8 93 33 106/70 (82) 100 08/18/19 16:00 88 08/18/19 16:00 Mechanical Ventilator 15.0 Mechanical Ventilator 15.0 08/18/19 15:15 93 26 30 08/18/19 12:00 97.1 77 23 113/73 (86) 100 08/18/19 12:00 30 08/18/19 12:00 Mechanical Ventilator 15.0 Mechanical Ventilator 15.0 08/18/19 11:29 75 08/18/19 11:00 89 30 30 30 08/18/19 11:00 99 08/18/19 08:00 30 08/18/19 08:00 Mechanical Ventilator 15.0 Mechanical Ventilator 15.0 08/18/19 08:00 97.5 67 26 105/55 (72) 100 08/18/19 08:00 68 08/18/19 07:22 75 26 30 08/18/19 05:51 100.2 08/18/19 04:36 Mechanical Ventilator Mechanical Ventilator 08/18/19 04:35 30 08/18/19 04:31 100.6 63 22 103/53 (70) 100 08/18/19 03:56 77 08/18/19 03:03 71 26 30 08/18/19 00:16 30 08/18/19 00:00 63 08/18/19 00:00 Mechanical Ventilator Mechanical Ventilator 08/17/19 23:39 98.8 61 26 101/62 (75) 100 08/17/19 22:50 69 26 30 Intake and Output 08/17/19 08/18/19 19:00 07:00 Intake Total 580 ml 600 ml Balance 580 ml 600 ml Free Water 100 ml 120 ml Tube Feeding 480 ml 480 ml # Bowel Movements 1 2 Laboratory Tests 08/17/19 23:35: POC Whole Blood Glucose 200H 08/18/19 05:20: POC Whole Blood Glucose 180H 08/18/19 12:50: POC Whole Blood Glucose [Pending] Height (Feet): 6 Height (Inches): 1.00 Weight (Pounds): 169 Karishma Mulligan MD Aug 18, 2019 21:59
[2019-08-19] VITALS (7 sets, daily range): BP systolic 95–142; BP diastolic 54–76
[2019-08-19] MEDS: NovoLOG Insulin Flexpen SUBQ SCH ×5 (00:30→23:47)
[2019-08-19 05:27] LABS: BASOPHILS % (AUTO) 6.2 % (0.0-2.0); EOSINOPHILS % (AUTO) 1.9 % (0.0-3.0); HEMATOCRIT 33.9 % (42.0-52.0); HEMOGLOBIN 9.9 G/DL (14.2-18.0); LYMPHOCYTES % (AUTO) 8.9 % (20.0-45.0); MEAN CORPUSCULAR VOLUME 97 FL (80-99); MONOCYTES % (AUTO) 7.6 % (1.0-10.0); NEUTROPHILS % (AUTO) 75.5 % (45.0-75.0); PLATELET COUNT 396 K/UL (150-450); RED BLOOD COUNT 3.48 M/UL (4.70-6.10); RED CELL DISTRIBUTION WIDTH 18.4 % (11.6-14.8); WHITE BLOOD COUNT 12.1 K/UL (4.8-10.8)
[2019-08-19 06:11] LABS: ALANINE AMINOTRANSFERASE 19 U/L (12-78); ALBUMIN 3.9 G/DL (3.4-5.0); ALBUMIN/GLOBULIN RATIO 0.7 (1.0-2.7); ALKALINE PHOSPHATASE 136 U/L (46-116); ANION GAP 16 mmol/L (5-15); ASPARTATE AMINO TRANSFERASE 22 U/L (15-37); BILIRUBIN,TOTAL 0.2 MG/DL (0.2-1.0); BLOOD UREA NITROGEN 48 mg/dL (7-18); CALCIUM 9.3 MG/DL (8.5-10.1); CARBON DIOXIDE 28 MMOL/L (21-32); CHLORIDE 99 MMOL/L (98-107); CREATININE 5.2 MG/DL (0.55-1.30); PHOSPHORUS 2.5 MG/DL (2.5-4.9); POTASSIUM 4.8 MMOL/L (3.5-5.1); SODIUM 143 MMOL/L (136-145)
[2019-08-19] MEDS: Midodrine 10mg tab NG SCH ×3 (09:01→18:24)
[2019-08-19] MEDS: Pantoprazole Inj IVP SCH (09:01)
[2019-08-19] MEDS: Lomotil 2.5mg tab ORAL SCH ×2 (09:01→18:24)
[2019-08-19] MEDS: Fluconazole 100mg tab NG SCH (09:02)
[2019-08-19] MEDS: Enoxaparin 30mg Inj SUBQ SCH (09:03)
--- NOTE | 2019-08-19 09:52 | Hematology/Onc Progress Note ---
Assessment/Plan Assessment/Plan Assessment and Recs: # Anemia of chronic disease, likely related ot underlying kidney disease has COIVD19++++++ --> hgb trend 9-->8-->7.3-->7.9-->6.8->9.5-->10->8.3-->7.7-->7.1-->8.9->8.8->7.7 -->8.1 ->7.9-->7.7 -->8.2-->8.1 -->7.9-->8.5 -->9->9.2-->9.5-->10.7 -->9.8--> 10.2-->11.8 -->11.9-->8.8 ->9.4->9-->8.3 -->8.5-->9.4->9.8-->9-->8.3-->11.6--> 10.8-->10.5-->10->9.7->9.9 --> transfuse as needed, hgb goal >7 --> no evidence of hemolysis --> peripheral smear has been reviewed --> epogen started 3 x a week ==>> transfuse 06/08, 06/15 # Leukocytosis likely related to suspected COVID-19 virus infection --> completed plaquenil --> trend smear as needed --> wbc trend: 4-->11-->14.5-->21-->26-->21->24--.28-->23-->19-->16.2-->21--> 11.2 -->12.5-->12.3-->12.4-->18.5-->18.5-->17->13-->18.2-->22.2-->25-->17.4-->17 -->14.2-->14-->16-->15.5-->9->17->11.5-->12->12-->18 --> pulm is aware --> on abx cefepime/vanc->zosyn/vanc-->dom/vanc-->dom-->levaquin/cefepime--> vanc/zosyn --> vanc --> pressors as needed --> 06/27 covid 19++ --> pressors as needed in icu --> c diff negative 08/08 --> blood cx++ # Thrombocytopenia/Lymphopenia --> likely related to covid19 --> plt 129k-->186k-->251-->285-->384 -->430-->539-->515-->447-->451-->404-->544 -->244 -->393 # Respiratory failure with covid19+ --> s/p vent/trach --> weaning # Possible Pneumonia --> abx completed --> 07/13 cxr: Improved right lung infiltrates. # Cardiomegaly # Transaminitis with Elevated AST # COPD # Chronic Kidney Disease --> per renal hd --> s/p right femoral cath 07/02 # Hypertension # peg # Dvt ppx lovenox Appreciate consultation and ernesto Rn Subjective Allergies: Coded Allergies: No Known Allergies (Unverified , 05/28/19) All Systems: reviewed and negative except above Subjective 06/01 nv, extremely agitated, not allowing labs draws, no night sweats, cbc ordered 06/02 confused, restraints, on abx and plaquenil, hgb 7.9, nrb 15 L 06/03 is with nonrebreather, but not compliant, remains confused 06/05 no bleeding, labs noted, no major bleeding, otherwise comfortable 06/06 labs reviewed, no bleeding, meds noted, no night sweats, on levo and nonrebreather 06/07 labs noted, no bleeding, meds reviewed, no bleeding, wbc higher 06/08 to get 2 units prbc, no night sweats, meds reviewed 06/09 is on cefepime and vanc, labs noted, ernesto Rn, no bleeding 06/10 no major changes, labs reviewed, wbc 28k, on abx, cefepime 06/12 remains in icu, labs noted, no night sweats or bleeding 06/13 sluggish pupils, remains agitated, per psych, no bleding, on vent, wbc sitll high 06/14 still confused, remains on vent, with ng, running nepro, on pressors 06/15 icu, febrile, non verbal, hgb 7.1, blood pending, completed plaq 06/16 remains in the icu, nonverbal, plan for hd tomorrow, ernesto rn 06/17 in icu, on pressor, nonverbal, on abx, no bleeding 06/19 no bleeding, nonverbal in icu, hgb is 7.7 06/20 on zosyn, tube feeds, vent, labs noted, in icu, nv 06/21 gettng hd as per renal, in icu, nv, no bleeding, tfs 06/22 icu, cxr with slight improvement, cooling blanket, weaning today 06/23 wewaning, in icu, on vent, abx, and pressors as needed, labs noted 06/24 failed weaning, off abx, completed plaquenil, hgb 8.1 06/26 icu, weaning for this am, afebrile, hgb 8 06/27 in icu, remains comotose, weaning started on peep, no night sweats 06/28 weaning today, off abx, restraints, no distress, h/h stable 06/29 covid 19+, failed weaning, no blood transfusion needed 06/30 icu, on vent, labs reviewed, no distress 07/01 in icu, may need trach, remains on hd per renal, labs noted 07/02 s/p right fem cath, failed wean, no new orders, h/h stable 07/03 is somewhat more responsive, on abx, no bleeding, weaning and HD today 07/04 hd as per renal, weaning off vent, no bleeding today 07/05 obtunded, no bleding overnight, with hd for tomorrow noted, vanc 07/08 no events, remains with trach/vent, ernesto Rn, no bleeding, cbc is noted 07/09 no overnight events, peg for friday pending consent 07/10 off pressors, vent, restraints, labs reviewed 07/11 no acute events is on pressors, intubated, agitated still 07/12 is resting comfortably, no bleeding, emds reviewed and noted 07/13 icu, no events, trach, cxr reviewed, 07/14 is onv ent, tachypneic and tachycardic, labs noted 07/15 remains confused, intubated, ernesto Rn, no bleeding 07/17 icu, cxr improving infiltrates, levo gtt, airborne/contact isolation 07/18 is on broad spectrum abx, is on levaquin and cefepime, wbc 16 agitated 07/19 icu, levo gtt, cxr unchanged, tachy, hd thursday 07/20 sedated, safety restraints, labs reviewed 07/21 hd was done yesterday, lower pressor requirements, wbc is worse, on abx 07/22 icu, meds and labs reviewed, vent, no distress 07/24 on vent, in icu, labs noted, remains agitated, and confused 07/25 remains obtunded, on vent, on pressor, hgb 9, wbc elev 07/26 icu, levo gtt, vent, iv abx, nonverbal 07/27 failed weaning, labs reviewed, repeat covid swab pending 07/28 labs are noted, no bleeding, on vent/trach gtube feeds dw rn 07/29 iuc, restraints, no new changes, vent 07/31 is asleep, comfortable, no events, labs reviewed, restraints+ 08/01 no events, agitated, no bleeding, meds noted, on gtube feeds 08/02 remains on vent, no bleeding, wbc higher 19, hgb 9, on abx 08/03 labs noted, on vent, no bleeding, wbc 17, hgb better 08/04 labs reviewed, no bleeding, does not require prbc, on vent 08/05 more alert, is on trach, vent, no major events, no bleeding, peg+ 08/07 no bleeding no chills, no night sweats, is on vent/trach 08/08 recent covid swab negative, restraints, cxr unchanged 08/09 c diff negative, zosyn, hd today, gtf 08/10 no overnight events, labs reviewed, afebrile 08/11 labs reviewed, meds noted, no fc, no major changes, wbc 12 / abx changed to flucon, on abx, wbc 12 7/ bp on low end, blood cx++, vanc, vent 08/15 no bleeding, no night sweats, on abx, trach/vent 08/16 is able to nod head in response to question, labs noted, on vent/trach 08/17 labs reviewed, hgb 9.8, no bleeding, on abx, meds noted 08/18 labs noted, no bleeding, hgb stable, 9.9, mildly alert Objective Objective Current Medications Medications (Trade) Dose Ordered Sig/Anthony Route PRN Reason Start Time Stop Time Status Last Admin Dose Admin Acetaminophen (Tylenol) 650 mg Q4H PRN NG For Pain 08/04/19 21:38 09/03/19 21:37 08/18/19 05:21 Acetaminophen (Tylenol) 650 mg Q4H PRN NG Temp >100.5 08/15/19 13:30 09/08/19 08:29 Chlorhexidine Gluconate (Michelle-Hex 2%) 1 applic DAILY@2000 TOPIC 08/05/19 20:00 09/05/19 19:59 08/18/19 20:12 Dextrose (Dextrose 50%) 25 ml Q30M PRN IV Hypoglycemia 08/04/19 22:00 09/18/19 19:29 Dextrose (Dextrose 50%) 50 ml Q30M PRN IV Hypoglycemia 08/04/19 22:00 09/18/19 19:29 Diphenoxylate HCl/ Atropine (Lomotil) 2.5 mg BID ORAL 08/18/19 18:00 09/17/19 17:59 08/19/19 09:01 Enoxaparin Sodium (Lovenox) 30 mg DAILY SUBQ 08/05/19 09:00 08/27/19 08:59 08/19/19 09:03 Epoetin Aftab (Epoetin Aftab(ESRD on dialysis)) 10,000 unit FRI-FRI-FRI SUBQ 08/11/19 21:00 11/09/19 20:59 08/18/19 20:55 Fluconazole (Diflucan) 200 mg DAILY NG 08/13/19 10:24 08/20/19 10:23 08/19/19 09:02 Haloperidol Lactate 5 mg/ Dextrose 56 ml @ 224 mls/hr Q6H PRN IVPB Agitation 08/04/19 21:38 09/18/19 21:37 08/19/19 02:26 Hydralazine HCl (Apresoline) 10 mg Q4H PRN IV Blood pressure over 160 systol 08/04/19 21:39 11/02/19 21:38 Insulin Aspart (NovoLOG) EVERY 6 HOURS SUBQ 08/05/19 00:00 09/19/19 00:00 08/19/19 05:32 Loperamide HCl (Imodium) 2 mg Q6H NG 08/18/19 14:00 09/15/19 13:59 08/19/19 08:35 Midodrine (Pro-Amatine) 10 mg THREE TIMES A DAY NG 08/15/19 18:00 11/13/19 17:59 08/19/19 09:01 Pantoprazole (Protonix) 40 mg DAILY IVP 08/05/19 09:00 08/26/19 08:59 08/19/19 09:01 Vancomycin HCl ([facility] pharmacy to dose) 1 ea DAILY PRN MISC Per rx protocol 08/15/19 08:45 09/14/19 08:44 Last 24 Hour Vital Signs Date Time Temp Pulse Resp B/P (MAP) Pulse Ox O2 Delivery O2 Flow Rate FiO2 08/19/19 08:00 98.1 79 26 101/65 (77) 99 08/19/19 08:00 30 08/19/19 06:40 89 26 30 08/19/19 04:00 Mechanical Ventilator 15.0 Mechanical Ventilator 15.0 08/19/19 04:00 83 08/19/19 04:00 98.2 83 26 95/54 (68) 99 08/19/19 04:00 30 08/19/19 03:07 93 31 30 08/19/19 00:00 99.5 81 26 135/57 (83) 99 08/19/19 00:00 30 08/19/19 00:00 Mechanical Ventilator 15.0 Mechanical Ventilator 15.0 08/19/19 00:00 79 08/18/19 22:50 72 26 30 08/18/19 20:00 Mechanical Ventilator 15.0 Mechanical Ventilator 15.0 08/18/19 20:00 98.4 77 26 120/68 (85) 100 08/18/19 20:00 30 08/18/19 20:00 89 08/18/19 18:37 89 26 30 08/18/19 16:00 30 08/18/19 16:00 97.8 93 33 106/70 (82) 100 08/18/19 16:00 88 08/18/19 16:00 Mechanical Ventilator 15.0 Mechanical Ventilator 15.0 08/18/19 15:15 93 26 30 08/18/19 12:00 97.1 77 23 113/73 (86) 100 08/18/19 12:00 30 08/18/19 12:00 Mechanical Ventilator 15.0 Mechanical Ventilator 15.0 08/18/19 11:29 75 08/18/19 11:00 89 30 30 30 08/18/19 11:00 99 08/18/19 08:00 30 08/18/19 08:00 Mechanical Ventilator 15.0 Mechanical Ventilator 15.0 08/18/19 08:00 97.5 67 26 105/55 (72) 100 08/18/19 08:00 68 08/18/19 07:22 75 26 30 08/18/19 05:51 100.2 08/18/19 04:36 Mechanical Ventilator Mechanical Ventilator 08/18/19 04:35 30 08/18/19 04:31 100.6 63 22 103/53 (70) 100 08/18/19 03:56 77 08/18/19 03:03 71 26 30 08/18/19 00:16 30 08/18/19 00:00 63 08/18/19 00:00 Mechanical Ventilator Mechanical Ventilator 08/17/19 23:39 98.8 61 26 101/62 (75) 100 08/17/19 22:50 69 26 30 08/17/19 20:45 Mechanical Ventilator Mechanical Ventilator 08/17/19 20:44 30 08/17/19 20:00 77 08/17/19 20:00 100.9 77 22 101/60 (74) 100 08/17/19 18:50 66 26 30 08/17/19 16:00 Mechanical Ventilator Mechanical Ventilator 08/17/19 16:00 98.5 68 18 97/61 (73) 100 08/17/19 16:00 30 08/17/19 15:58 64 08/17/19 14:47 73 26 30 08/17/19 12:00 Mechanical Ventilator Mechanical Ventilator 08/17/19 12:00 97.4 80 18 106/60 (75) 100 08/17/19 12:00 81 08/17/19 12:00 30 08/17/19 11:09 86 28 30 30 Intake and Output 08/18/19 08/19/19 19:00 07:00 Intake Total 760 ml 530 ml Output Total 2 ml Balance 758 ml 530 ml Free Water 100 ml 50 ml Tube Feeding 480 ml 480 ml Other 180 ml Stool Total 2 ml # Bowel Movements 3 5 Labs Test 08/16/19 12:13 08/16/19 17:18 08/16/19 23:06 08/17/19 03:20 POC Whole Blood Glucose 194 MG/DL (74-106) Random Vancomycin Level 23.6 ug/mL Test 08/17/19 06:00 08/17/19 11:48 08/17/19 16:56 08/17/19 23:35 POC Whole Blood Glucose 205 MG/DL (74-106) 200 MG/DL (74-106) Test 08/18/19 05:20 08/18/19 12:50 08/18/19 18:05 08/19/19 00:25 POC Whole Blood Glucose 180 MG/DL (74-106) 164 MG/DL (74-106) Test 08/19/19 04:16 08/19/19 05:26 White Blood Count 12.1 K/UL (4.8-10.8) Red Blood Count 3.48 M/UL (4.70-6.10) Hemoglobin 9.9 G/DL (14.2-18.0) Hematocrit 33.9 % (42.0-52.0) Mean Corpuscular Volume 97 FL (80-99) Mean Corpuscular Hemoglobin 28.4 PG (27.0-31.0) Mean Corpuscular Hemoglobin Concent 29.2 G/DL (32.0-36.0) Red Cell Distribution Width 18.4 % (11.6-14.8) Platelet Count 396 K/UL (150-450) Mean Platelet Volume 5.8 FL (6.5-10.1) Neutrophils (%) (Auto) 75.5 % (45.0-75.0) Lymphocytes (%) (Auto) 8.9 % (20.0-45.0) Monocytes (%) (Auto) 7.6 % (1.0-10.0) Eosinophils (%) (Auto) 1.9 % (0.0-3.0) Basophils (%) (Auto) 6.2 % (0.0-2.0) Sodium Level 143 MMOL/L (136-145) Potassium Level 4.8 MMOL/L (3.5-5.1) Chloride Level 99 MMOL/L (98-107) Carbon Dioxide Level 28 MMOL/L (21-32) Anion Gap 16 mmol/L (5-15) Blood Urea Nitrogen 48 mg/dL (7-18) Creatinine 5.2 MG/DL (0.55-1.30) Estimat Glomerular Filtration Rate 11.1 mL/min (>60) Glucose Level 267 MG/DL (74-106) Calcium Level 9.3 MG/DL (8.5-10.1) Phosphorus Level 2.5 MG/DL (2.5-4.9) Total Bilirubin 0.2 MG/DL (0.2-1.0) Aspartate Amino Transf (AST/SGOT) 22 U/L (15-37) Alanine Aminotransferase (ALT/SGPT) 19 U/L (12-78) Alkaline Phosphatase 136 U/L (46-116) Total Protein 9.3 G/DL (6.4-8.2) Albumin 3.9 G/DL (3.4-5.0) Globulin 5.4 g/dL Albumin/Globulin Ratio 0.7 (1.0-2.7) Random Vancomycin Level 19.2 ug/mL POC Whole Blood Glucose 158 MG/DL (74-106) Height (Feet): 6 Height (Inches): 1.00 Weight (Pounds): 173 Objective General: nv, confused, sedated Heent: bilateral eye normal inspection, bilateral eye PERRL ++Ng Respiratory: normal breath sounds, no respiratory distress, intubated/vent +++ trach+++ Cardiovascular: regular rate, rhythm, no edema Gastrointestinal: normal inspection, soft, non-distended, peg+ Rectal: deferred Musculoskeletal: normal range of motion, non-tender, R fem cath++ Neurologic: alert, motor strength/tone normal, sensory intact, responsive, speech normal Skin: Decubitus/Ulcer - See RN skin exam. : jamaal+ Greg Cabral MD Aug 19, 2019 09:52
--- NOTE | 2019-08-19 10:02 | Infectious Diseases Prog Note ---
Assessment/Plan Assessment/Plan IMPRESSION: 1. COVID19 pneumonia Positive: 05/27, 05/31 , 06/05, 06/09 ,06/17, 06/19, 06/23, 06/27, 07/03, 07/15, 07/29 Negative: 07/26, 08/04, 08/05 2. MRSA carrier. 3. Chronic kidney disease , end-stage renal disease. 4. COPD. 5. Hypertension. 6. Anemia. 7. Hypothyroidism. 8. Hyperlipidemia. 9. Major depression. 10. Leukocytosis 11. Hypotension 12. Hepatitis C 13. Hyperuricemia 14. Diarrhea, C difficile negative 15. septic shock 16.Sepsis blood cultures 08/08 & 08/12 : yeast blood culture: Staph Coagulase negative 17. Pneumonia with Staph aureus ( MRSA) 18. Candidal sepsis 19. Diarrhea, C. difficile negative RECOMMENDATIONS: continue Fluconazole & Vancomycin Will need change of PermCath Case was D/W primary MD & surgeon yesterday Subjective ROS Limited/Unobtainable: Yes Constitutional: Denies: fever Neurologic: Reports: confusion, other - restraint by mitten Allergies: Coded Allergies: No Known Allergies (Unverified , 05/28/19) Objective Last 24 Hour Vital Signs Date Time Temp Pulse Resp B/P (MAP) Pulse Ox O2 Delivery O2 Flow Rate FiO2 08/19/19 08:00 98.1 79 26 101/65 (77) 99 08/19/19 08:00 30 08/19/19 06:40 89 26 30 08/19/19 04:00 Mechanical Ventilator 15.0 Mechanical Ventilator 15.0 08/19/19 04:00 83 08/19/19 04:00 98.2 83 26 95/54 (68) 99 08/19/19 04:00 30 08/19/19 03:07 93 31 30 08/19/19 00:00 99.5 81 26 135/57 (83) 99 08/19/19 00:00 30 08/19/19 00:00 Mechanical Ventilator 15.0 Mechanical Ventilator 15.0 08/19/19 00:00 79 08/18/19 22:50 72 26 30 08/18/19 20:00 Mechanical Ventilator 15.0 Mechanical Ventilator 15.0 08/18/19 20:00 98.4 77 26 120/68 (85) 100 08/18/19 20:00 30 08/18/19 20:00 89 08/18/19 18:37 89 26 30 08/18/19 16:00 30 08/18/19 16:00 97.8 93 33 106/70 (82) 100 08/18/19 16:00 88 08/18/19 16:00 Mechanical Ventilator 15.0 Mechanical Ventilator 15.0 08/18/19 15:15 93 26 30 08/18/19 12:00 97.1 77 23 113/73 (86) 100 08/18/19 12:00 30 08/18/19 12:00 Mechanical Ventilator 15.0 Mechanical Ventilator 15.0 08/18/19 11:29 75 08/18/19 11:00 89 30 30 30 08/18/19 11:00 99 Height (Feet): 6 Height (Inches): 1.00 Weight (Pounds): 173 HEENT: status post trach Respiratory/Chest: lungs clear, other - on ventilator Cardiovascular: normal rate Neurologic/Psychiatric: other - sleeping Microbiology Date/Time Source Procedure Growth Status 08/18/19 04:00 Stool Clostridium difficile Toxin Assay - Final Complete Laboratory Tests Test 08/18/19 12:50 08/18/19 18:05 08/19/19 00:25 08/19/19 04:16 POC Whole Blood Glucose Pending Pending 164 MG/DL (74-106) H White Blood Count 12.1 K/UL (4.8-10.8) H Red Blood Count 3.48 M/UL (4.70-6.10) L Hemoglobin 9.9 G/DL (14.2-18.0) L Hematocrit 33.9 % (42.0-52.0) L Mean Corpuscular Volume 97 FL (80-99) Mean Corpuscular Hemoglobin 28.4 PG (27.0-31.0) Mean Corpuscular Hemoglobin Concent 29.2 G/DL (32.0-36.0) L Red Cell Distribution Width 18.4 % (11.6-14.8) H Platelet Count 396 K/UL (150-450) Mean Platelet Volume 5.8 FL (6.5-10.1) L Neutrophils (%) (Auto) 75.5 % (45.0-75.0) H Lymphocytes (%) (Auto) 8.9 % (20.0-45.0) L Monocytes (%) (Auto) 7.6 % (1.0-10.0) Eosinophils (%) (Auto) 1.9 % (0.0-3.0) Basophils (%) (Auto) 6.2 % (0.0-2.0) H Sodium Level 143 MMOL/L (136-145) Potassium Level 4.8 MMOL/L (3.5-5.1) Chloride Level 99 MMOL/L (98-107) Carbon Dioxide Level 28 MMOL/L (21-32) Anion Gap 16 mmol/L (5-15) H Blood Urea Nitrogen 48 mg/dL (7-18) H Creatinine 5.2 MG/DL (0.55-1.30) H Estimat Glomerular Filtration Rate 11.1 mL/min (>60) Glucose Level 267 MG/DL (74-106) H Calcium Level 9.3 MG/DL (8.5-10.1) Phosphorus Level 2.5 MG/DL (2.5-4.9) Total Bilirubin 0.2 MG/DL (0.2-1.0) Aspartate Amino Transf (AST/SGOT) 22 U/L (15-37) Alanine Aminotransferase (ALT/SGPT) 19 U/L (12-78) Alkaline Phosphatase 136 U/L (46-116) H Total Protein 9.3 G/DL (6.4-8.2) H Albumin 3.9 G/DL (3.4-5.0) Globulin 5.4 g/dL Albumin/Globulin Ratio 0.7 (1.0-2.7) L Cortisol AM Sample Pending Random Vancomycin Level 19.2 ug/mL Test 08/19/19 05:26 POC Whole Blood Glucose 158 MG/DL (74-106) H Current Medications Medications (Trade) Dose Ordered Sig/Anthony Route PRN Reason Start Time Stop Time Status Last Admin Dose Admin Acetaminophen (Tylenol) 650 mg Q4H PRN NG For Pain 08/04/19 21:38 09/03/19 21:37 08/18/19 05:21 Acetaminophen (Tylenol) 650 mg Q4H PRN NG Temp >100.5 08/15/19 13:30 09/08/19 08:29 Chlorhexidine Gluconate (Michelle-Hex 2%) 1 applic DAILY@1999 TOPIC 08/05/19 20:00 09/05/19 19:59 08/18/19 20:12 Dextrose (Dextrose 50%) 25 ml Q30M PRN IV Hypoglycemia 08/04/19 22:00 09/18/19 19:29 Dextrose (Dextrose 50%) 50 ml Q30M PRN IV Hypoglycemia 08/04/19 22:00 09/18/19 19:29 Diphenoxylate HCl/ Atropine (Lomotil) 2.5 mg BID ORAL 08/18/19 18:00 09/17/19 17:59 08/19/19 09:01 Enoxaparin Sodium (Lovenox) 30 mg DAILY SUBQ 08/05/19 09:00 08/27/19 08:59 08/19/19 09:03 Epoetin Aftab (Epoetin Aftab(ESRD on dialysis)) 10,000 unit FRI-FRI-FRI SUBQ 08/11/19 21:00 11/09/19 20:59 08/18/19 20:55 Fluconazole (Diflucan) 200 mg DAILY NG 08/13/19 10:24 08/20/19 10:23 08/19/19 09:02 Haloperidol Lactate 5 mg/ Dextrose 56 ml @ 224 mls/hr Q6H PRN IVPB Agitation 08/04/19 21:38 09/18/19 21:37 08/19/19 02:26 Hydralazine HCl (Apresoline) 10 mg Q4H PRN IV Blood pressure over 160 systol 08/04/19 21:39 11/02/19 21:38 Insulin Aspart (NovoLOG) EVERY 6 HOURS SUBQ 08/05/19 00:00 09/19/19 00:00 08/19/19 05:32 Loperamide HCl (Imodium) 2 mg Q6H NG 08/18/19 14:00 09/15/19 13:59 08/19/19 08:35 Midodrine (Pro-Amatine) 10 mg THREE TIMES A DAY NG 08/15/19 18:00 11/13/19 17:59 08/19/19 09:01 Pantoprazole (Protonix) 40 mg DAILY IVP 08/05/19 09:00 08/26/19 08:59 08/19/19 09:01 Vancomycin HCl ([facility] pharmacy to dose) 1 ea DAILY PRN MISC Per rx protocol 7/5/20 08:45 09/14/19 08:44 Ted Leyva MD Aug 19, 2019 10:02
--- NOTE | 2019-08-19 10:51 | Nephrology Progress Note ---
Assessment/Plan Problem List: (1) CASSANDRA (acute kidney injury) (2) Anemia in chronic kidney disease (CKD) (3) HTN (hypertension) (4) COVID-19 Assessment Acute renal failure most likely superimposed on chronic kidney disease Suspected COVID-19 virus infection Possible Pneumonia, lymphopenia, elevated AST Cardiomegaly, possible CHF COPD Hypertension Anemia, most likely related to chronic kidney disease Plan August 18: Discussed with ID and general surgery. Will remove the permacath which is thought to be infected by IR today. Will monitor renal parameters. Will obtain surveillance cultures tomorrow. Will attempt to put a temporary dialysis access in 48 to 72 hours for dialysis purposes. August 17: Last dialysis August 15, no blood work done today yet. Will reassess if dialysis should be continued. Continue per current management. We will make arrangement to DC permacath and reinsert a new one via general surgery and or interventional radiology August 16: Albumin for low BP. Continue to monitor renal parameters. August 15: Due for dialysis today. Remains borderline low. No ultrafiltration during dialysis. Discussed with SHANIQUE Macdonald. August 14: No labs done today. Patient hypotensive. Normal saline and albumin bolus given. Midodrin started. Will check lab tomorrow. August 13: Lab reviewed. Last dialysis yesterday. Next dialysis August 15. Potassium and phosphorus supplement given. Continue per consultants. August 12: No can panel done today. Due for dialysis today. Continue per consultants. August 11: Patient labs reviewed. Will order dialysis tomorrow. Continue per consultants. August 10: Patient was dialyzed yesterday. Today's labs checked. Stable from renal standpoint to view August 09: Patient scheduled for hemodialysis today. Will check labs tomorrow. August 08: Lab reviewed. Hemodialysis scheduled for tomorrow. August 07: Dialyzed yesterday. No labs drawn today. Will check labs tomorrow. Continue per consultants. August 06: Patient on dialysis now. Discussed with dialysis nurse. Slight catheter malfunction persist. August 05: Labs reviewed. Dialysis scheduled for tomorrow. Continue per consultants. August 04: No labs done today. Dialyzed yesterday. Check labs tomorrow. Continue per consultants. August 03: Lab reviewed. Due for dialysis today. White blood cell 17,500. August 02: Lab reviewed. Low phosphorus replaced. Hemodialysis ordered for tomorrow. White blood cells over 18,000. August 01: Labs reviewed. Potassium replacement ordered. Remains full code on ventilator via trach. Continue per consultants. July 31: Dialyzed yesterday. No can panel today. Remains full code. Remains on ventilator. Being fed through PEG. Continue per consultants. July 30: Patient due for dialysis today. Labs are reviewed. Remains full code. Status post trach to ventilator. Status post PEG. July 29: Patient dialyzed yesterday. Due for dialysis tomorrow. Remains in ICU. Full code. Status post trach tube to ventilator. Status post PEG. July 28: Due for dialysis today. Labs reviewed. Full code. Patient trached and vented. July 27: Last COVID test negative. COVID test will be repeated tomorrow. Will order dialysis tomorrow. Remains full code. Medication list and labs reviewed. July 26: No labs done today. Dialysis done yesterday. Will check lab tomorrow. Dialysis as needed. July 25: Lab reviewed. Dialysis today. Discussed with RN. July 24: Lab reviewed. Do dialysis tomorrow. Discussed with RN. July 23: Lab reviewed. Dialyzed yesterday. Discussed with RN. Remains full code. Next dialysis July 25. Will check labs tomorrow. July 22: Labs reviewed. Due for dialysis today. Discussed with RN. Watch borderline low blood pressure. Discussed with dialysis nurse. July 21: Today's lab reviewed. Will arrange for dialysis tomorrow. Discussed with RN. Aim to keep the blood pressure above 100 systolic. Continue per consultants. July 20: Patient was dialyzed yesterday. Could not ultrafiltrate much due to low blood pressure. Discussed with SHANIQUE Dick today. No labs drawn today. Continue per consultants. July 19: Due for dialysis today. Discussed with SHANIQUE Dick. Continue per consultants. July 18: Dialyzed July 16. Will order dialysis tomorrow July 19. Continues to be on ventilator through trach. No labs done today. Continue per consultants. July 17: Dialyzed yesterday. Stable from renal standpoint of view. Remains full code. Status post trach on vent. Status post PEG. Continue per consultants. July 16: Dialysis today. Will resume Midodrin to prevent hypotension. Patient remains full code. July 15: Dialyzed yesterday, due for dialysis tomorrow. Labs and medication list reviewed. Continue per consultants. Patient remains full code. COVID-19 detected again. July 14: Patient currently on dialysis. This is continuation of dialysis from yesterday as yesterday's dialysis was cut short due to catheter malfunction. Labs and medication reviewed. Continue per consultants. July 13: Patient currently on hemodialysis. The dialysis catheter which is a intrajugular Kamlesh has poor flow. Will try TPA. Continue per consultants. July 12: Due for PEG today. Due for dialysis tomorrow. Continue per consultants. Discussed with RN. July 11: Plan for dialysis today. Discussed with RN. Data reviewed. July 10: Plan for dialysis tomorrow July 11. Waiting for consent to proceed with PEG. Continue per consultants. Medication reviewed. Labs reviewed. Discussed with RN. July 09: Dialyzed yesterday. Labs reviewed. Medication reviewed. Next hemodialysis July 11. July 08: Patient has tracheostomy now. Connected to ventilator. Due for dialysis today. Continue per consultants. Discussed with SHANIQUE Romero. July 07: Patient is due for tracheostomy today. Patient was last dialyzed July 05. Will order dialysis for tomorrow. July 06: Patient is intubated on ventilator however the plan is to extubate today. Patient was dialysis yesterday July 05. The dialysis time was cut short due to patient's respiratory distress. Only 1 L was removed during dialysis yesterday. Today's lab reviewed. Continue per consultants. Will arrange for dialysis as needed. July 05: Patient due for dialysis today. Remains intubated. Will schedule permacath placement in a.m. blood cultures on July 04 are negative. July 04: Patient was dialyzed yesterday. Due for dialysis tomorrow. Continues to be intubated. After tomorrow's dialysis will order a permacath. July 03: Dialysis is about to be started now Continues to be intubated Will plan to remove the femoral dialysis catheter and exchanged for a new temporary catheter per ID recommendation We will check surveillance blood culture tomorrow July 02: Patient was dialyzed yesterday and due for dialysis tomorrow Stable from renal standpoint W on dialysis Continue per consultants, weaning....... etc. July 01: Dialysis today Other status unchanged June 30: Due for dialysis tomorrow Remains intubated on ventilator Labs and medication reviewed Discussed with RN Stable from renal standpoint of view June 29: Dialyzed yesterday Due for dialysis tomorrow Stable from renal standpoint to view Keeps failing weaning process June 28: Patient due for dialysis today Stable from renal standpoint to view Continue per consultants June 27: Labs reviewed Due due for dialysis June 28 Discussed with SHANIQUE Dick Continue per consultants Remains intubated on ventilator June 26 Labs reviewed Dialyzed yesterday Started on weaning today Continue to monitor renal parameters June 25: On dialysis now Potassium supplement implemented Continue per consultants Next dialysis June 27June 15: Status unchanged Dialyzed yesterday will dialyze again tomorrow Potassium supplements given Discussed with RN June 14: Due dialysis today Status: Remains intubated on ventilator June 22: Status unchanged Dialyzed yesterday and duefordialysistomorrow Serum sodium stable today June 21 Remains intubated on ventilator Due dialysis today Emphasized high sodium bath for dialysis June 20: Remains intubated on ventilator Dialyzed June 19 next dialysis June 21 Serum sodium 128, will give 250 cc 3% saline Remains full code Discussed with RN Iron panel ordered June 19: Discussed with RN. Patient due for dialysis today. Continue pulmonary support. Remains full code. June 18: Patient dialyzed yesterday June 17 Serum sodium improved but still low Arrange for dialysis tomorrow June 19 Continue per consultants June 8: Due for dialysis today Today's lab reviewed, low serum sodium noted, Emphasized on high sodium bath to dialysis nurse Discussed with SHANIQUE Yuen June 16: Dialyzed yesterday Remains intubated Labs reviewed, serum sodium 131 Plan to dialyze tomorrow June 17 with high sodium bath Discussed with SHANIQUE Yuen June 6: Due for dialysis today Labs reviewed Discussed with RN Transfuse 1 unit of packed RBCs today for low hemoglobin of 7.1 June 5: Blood pressure well maintained Receive dialysis June 13 next hemodialysis June 15June 4: Discussed with RN in ICU Patient did not receive proper dialysis yesterday due to dialysis catheter malfunction Catheter to be adjusted today and dialyzed to be resumed today Continue per consultants Positive for COVID 28 June 2: Patient now intubated on mechanical ventilation Discussed with SHANIQUE Yuen, today June 12 Patient received dialysis yesterday June 10 next hemodialysis June 12 Blood pressure better maintained Today's labs reviewed Continue per consultants Previously patient received dialysis last evening June 05, next dialysis June 07 which was incomplete due to patient's hypotension Will start on midodrine for blood pressure support. Meanwhile continue other pressors as needed Previously Patient is doing poorly, septic, white blood cells are rising, Hypotension somewhat improved We will keep n.p.o. , NG tube for medications, and change medication to IV as needed Patient remains full code Monitor vancomycin level Previously: Patient pulled out his femoral catheter yesterday June 03 which was reinserted by Dr. Mast Patient scheduled for dialysis again June 04, which again was not done due to dialysis nurse citing catheter malfunction Meanwhile continue management per ID, pulmonary , and psych. Meanwhile white blood cell count is rising. Patient blood pressure borderline low. Will check ABG Previously May 31 : I believe patient need dialysis treatment He however needs to competency assessment if can make decisions or not I will communicate with Dr. Mulligan Previously: Per pulmonary and ID advice Adjust blood pressure medication Renal diet Anemia work-up 2D echocardiogram refused Kidney ultrasound refused Jules catheter Urine studies Per orders Subjective ROS Limited/Unobtainable: Yes Objective Objective Last 24 Hour Vital Signs Date Time Temp Pulse Resp B/P (MAP) Pulse Ox O2 Delivery O2 Flow Rate FiO2 08/19/19 08:00 Mechanical Ventilator 15.0 Mechanical Ventilator 15.0 08/19/19 08:00 98.1 79 26 101/65 (77) 99 08/19/19 08:00 30 08/19/19 08:00 84 08/19/19 06:40 89 26 30 08/19/19 04:00 Mechanical Ventilator 15.0 Mechanical Ventilator 15.0 08/19/19 04:00 83 08/19/19 04:00 98.2 83 26 95/54 (68) 99 08/19/19 04:00 30 08/19/19 03:07 93 31 30 08/19/19 00:00 99.5 81 26 135/57 (83) 99 08/19/19 00:00 30 08/19/19 00:00 Mechanical Ventilator 15.0 Mechanical Ventilator 15.0 08/19/19 00:00 79 08/18/19 22:50 72 26 30 08/18/19 20:00 Mechanical Ventilator 15.0 Mechanical Ventilator 15.0 08/18/19 20:00 98.4 77 26 120/68 (85) 100 08/18/19 20:00 30 08/18/19 20:00 89 08/18/19 18:37 89 26 30 08/18/19 16:00 30 7/8/20 16:00 97.8 93 33 106/70 (82) 100 08/18/19 16:00 88 08/18/19 16:00 Mechanical Ventilator 15.0 Mechanical Ventilator 15.0 08/18/19 15:15 93 26 30 08/18/19 12:00 97.1 77 23 113/73 (86) 100 08/18/19 12:00 30 08/18/19 12:00 Mechanical Ventilator 15.0 Mechanical Ventilator 15.0 08/18/19 11:29 75 08/18/19 11:00 89 30 30 30 08/18/19 11:00 99 Intake and Output 08/18/19 08/19/19 19:00 07:00 Intake Total 760 ml 530 ml Output Total 2 ml Balance 758 ml 530 ml Free Water 100 ml 50 ml Tube Feeding 480 ml 480 ml Other 180 ml Stool Total 2 ml # Bowel Movements 3 5 Laboratory Tests 08/18/19 12:50: POC Whole Blood Glucose [Pending] 08/18/19 18:05: POC Whole Blood Glucose [Pending] 08/19/19 00:25: POC Whole Blood Glucose 164H 08/19/19 04:16: White Blood Count 12.1H, Red Blood Count 3.48L, Hemoglobin 9.9L, Hematocrit 33.9L, Mean Corpuscular Volume 97, Mean Corpuscular Hemoglobin 28.4, Mean Corpuscular Hemoglobin Concent 29.2L, Red Cell Distribution Width 18.4H, Platelet Count 396, Mean Platelet Volume 5.8L, Neutrophils (%) (Auto) 75.5H, Lymphocytes (%) (Auto) 8.9L, Monocytes (%) (Auto) 7.6, Eosinophils (%) (Auto) 1.9, Basophils (%) (Auto) 6.2H, Sodium Level 143, Potassium Level 4.8, Chloride Level 99, Carbon Dioxide Level 28, Anion Gap 16H, Blood Urea Nitrogen 48H, Creatinine 5.2H, Estimat Glomerular Filtration Rate 11.1, Glucose Level 267H, Calcium Level 9.3, Phosphorus Level 2.5, Total Bilirubin 0.2, Aspartate Amino Transf (AST/SGOT) 22, Alanine Aminotransferase (ALT/SGPT) 19, Alkaline Phosphatase 136H, Total Protein 9.3H, Albumin 3.9, Globulin 5.4, Albumin/ Globulin Ratio 0.7L, Cortisol AM Sample [Pending], Random Vancomycin Level 19.2 08/19/19 05:26: POC Whole Blood Glucose 158H Height (Feet): 6 Height (Inches): 1.00 Weight (Pounds): 173 General Appearance: no apparent distress EENT: other - Trach and vent Cardiovascular: tachycardia Respiratory/Chest: decreased breath sounds Abdomen: other - PEG in place Objective No change Mic Cole MD Aug 19, 2019 10:51
--- NOTE | 2019-08-19 11:32 | General Progress Note ---
Assessment/Plan Status: progressing, unchanged, deteriorating Assessment/Plan: 1. Diabetes. 2. Hypertension. 3. Coronary artery disease. 4. COPD. 5. Psychiatric disorder with schizophrenia. 6. History of hepatitis C. 7. HLP. 8. Chronic kidney disease, now with acute renal failure. 9. Anemia. 10. Hypothyroidism. 11. Spinal stenosis. 12. Constipation. 13. GERD. 14. COVID positive HD per nephrology fu labs s/p PEG GTF TF at 40 cc imodium lomotil neg C.diff off reglan monitor for residuals Subjective ROS Limited/Unobtainable: No Allergies: Coded Allergies: No Known Allergies (Unverified , 05/28/19) Objective Last 24 Hour Vital Signs Date Time Temp Pulse Resp B/P (MAP) Pulse Ox O2 Delivery O2 Flow Rate FiO2 08/19/19 08:00 Mechanical Ventilator 15.0 Mechanical Ventilator 15.0 08/19/19 08:00 98.1 79 26 101/65 (77) 99 08/19/19 08:00 30 08/19/19 08:00 84 08/19/19 06:40 89 26 30 08/19/19 04:00 Mechanical Ventilator 15.0 Mechanical Ventilator 15.0 08/19/19 04:00 83 08/19/19 04:00 98.2 83 26 95/54 (68) 99 08/19/19 04:00 30 08/19/19 03:07 93 31 30 08/19/19 00:00 99.5 81 26 135/57 (83) 99 08/19/19 00:00 30 08/19/19 00:00 Mechanical Ventilator 15.0 Mechanical Ventilator 15.0 08/19/19 00:00 79 08/18/19 22:50 72 26 30 08/18/19 20:00 Mechanical Ventilator 15.0 Mechanical Ventilator 15.0 08/18/19 20:00 98.4 77 26 120/68 (85) 100 08/18/19 20:00 30 08/18/19 20:00 89 08/18/19 18:37 89 26 30 08/18/19 16:00 30 08/18/19 16:00 97.8 93 33 106/70 (82) 100 08/18/19 16:00 88 08/18/19 16:00 Mechanical Ventilator 15.0 Mechanical Ventilator 15.0 08/18/19 15:15 93 26 30 08/18/19 12:00 97.1 77 23 113/73 (86) 100 08/18/19 12:00 30 08/18/19 12:00 Mechanical Ventilator 15.0 Mechanical Ventilator 15.0 Intake and Output 08/18/19 08/19/19 19:00 07:00 Intake Total 760 ml 530 ml Output Total 2 ml Balance 758 ml 530 ml Free Water 100 ml 50 ml Tube Feeding 480 ml 480 ml Other 180 ml Stool Total 2 ml # Bowel Movements 3 5 Laboratory Tests 08/18/19 12:50: POC Whole Blood Glucose [Pending] 08/18/19 18:05: POC Whole Blood Glucose [Pending] 08/19/19 00:25: POC Whole Blood Glucose 164H 08/19/19 04:16: White Blood Count 12.1H, Red Blood Count 3.48L, Hemoglobin 9.9L, Hematocrit 33.9L, Mean Corpuscular Volume 97, Mean Corpuscular Hemoglobin 28.4, Mean Corpuscular Hemoglobin Concent 29.2L, Red Cell Distribution Width 18.4H, Platelet Count 396, Mean Platelet Volume 5.8L, Neutrophils (%) (Auto) 75.5H, Lymphocytes (%) (Auto) 8.9L, Monocytes (%) (Auto) 7.6, Eosinophils (%) (Auto) 1.9, Basophils (%) (Auto) 6.2H, Sodium Level 143, Potassium Level 4.8, Chloride Level 99, Carbon Dioxide Level 28, Anion Gap 16H, Blood Urea Nitrogen 48H, Creatinine 5.2H, Estimat Glomerular Filtration Rate 11.1, Glucose Level 267H, Calcium Level 9.3, Phosphorus Level 2.5, Total Bilirubin 0.2, Aspartate Amino Transf (AST/SGOT) 22, Alanine Aminotransferase (ALT/SGPT) 19, Alkaline Phosphatase 136H, Total Protein 9.3H, Albumin 3.9, Globulin 5.4, Albumin/ Globulin Ratio 0.7L, Cortisol AM Sample [Pending], Random Vancomycin Level 19.2 08/19/19 05:26: POC Whole Blood Glucose 158H 08/19/19 11:26: POC Whole Blood Glucose 175H Height (Feet): 6 Height (Inches): 1.00 Weight (Pounds): 173 General Appearance: no apparent distress EENT: normal ENT inspection Neck: supple Cardiovascular: normal rate Respiratory/Chest: decreased breath sounds Abdomen: hypoactive bowel sounds Extremities: non-tender Marito Ramires MD Aug 19, 2019 11:32
--- NOTE | 2019-08-19 14:09 | Surgery Progress Note ---
Surgery Progress Note Subjective Procedure Performed Left internal jugular temporary hemodialysis catheter removal Additional Comments Discussed with nephrology and infectious disease. Line removal today. Line holiday. Objective Last 24 Hour Vital Signs Date Time Temp Pulse Resp B/P (MAP) Pulse Ox O2 Delivery O2 Flow Rate FiO2 08/19/19 12:00 98.2 86 27 117/64 (81) 99 08/19/19 12:00 Mechanical Ventilator 15.0 Mechanical Ventilator 15.0 08/19/19 12:00 30 08/19/19 12:00 88 08/19/19 11:43 84 33 30 30 08/19/19 11:15 89 27 30 08/19/19 08:00 Mechanical Ventilator 15.0 Mechanical Ventilator 15.0 08/19/19 08:00 98.1 79 26 101/65 (77) 99 08/19/19 08:00 30 08/19/19 08:00 84 08/19/19 06:40 89 26 30 08/19/19 04:00 Mechanical Ventilator 15.0 Mechanical Ventilator 15.0 08/19/19 04:00 83 08/19/19 04:00 98.2 83 26 95/54 (68) 99 08/19/19 04:00 30 08/19/19 03:07 93 31 30 08/19/19 00:00 99.5 81 26 135/57 (83) 99 08/19/19 00:00 30 08/19/19 00:00 Mechanical Ventilator 15.0 Mechanical Ventilator 15.0 08/19/19 00:00 79 08/18/19 22:50 72 26 30 08/18/19 20:00 Mechanical Ventilator 15.0 Mechanical Ventilator 15.0 08/18/19 20:00 98.4 77 26 120/68 (85) 100 08/18/19 20:00 30 08/18/19 20:00 89 08/18/19 18:37 89 26 30 08/18/19 16:00 30 08/18/19 16:00 97.8 93 33 106/70 (82) 100 08/18/19 16:00 88 08/18/19 16:00 Mechanical Ventilator 15.0 Mechanical Ventilator 15.0 08/18/19 15:15 93 26 30 I&O Intake and Output 08/18/19 08/19/19 19:00 07:00 Intake Total 760 ml 530 ml Output Total 2 ml Balance 758 ml 530 ml Free Water 100 ml 50 ml Tube Feeding 480 ml 480 ml Other 180 ml Stool Total 2 ml # Bowel Movements 3 5 Dressing: other Wound: other Drains: other Cardiovascular: RSR Respiratory: decreased breath sounds Abdomen: soft, present bowel sounds Extremities: no cyanosis, other Laboratory Tests Test 08/18/19 18:05 08/19/19 00:25 08/19/19 04:16 08/19/19 05:26 POC Whole Blood Glucose Pending 164 MG/DL (74-106) H 158 MG/DL (74-106) H White Blood Count 12.1 K/UL (4.8-10.8) H Red Blood Count 3.48 M/UL (4.70-6.10) L Hemoglobin 9.9 G/DL (14.2-18.0) L Hematocrit 33.9 % (42.0-52.0) L Mean Corpuscular Volume 97 FL (80-99) Mean Corpuscular Hemoglobin 28.4 PG (27.0-31.0) Mean Corpuscular Hemoglobin Concent 29.2 G/DL (32.0-36.0) L Red Cell Distribution Width 18.4 % (11.6-14.8) H Platelet Count 396 K/UL (150-450) Mean Platelet Volume 5.8 FL (6.5-10.1) L Neutrophils (%) (Auto) 75.5 % (45.0-75.0) H Lymphocytes (%) (Auto) 8.9 % (20.0-45.0) L Monocytes (%) (Auto) 7.6 % (1.0-10.0) Eosinophils (%) (Auto) 1.9 % (0.0-3.0) Basophils (%) (Auto) 6.2 % (0.0-2.0) H Sodium Level 143 MMOL/L (136-145) Potassium Level 4.8 MMOL/L (3.5-5.1) Chloride Level 99 MMOL/L (98-107) Carbon Dioxide Level 28 MMOL/L (21-32) Anion Gap 16 mmol/L (5-15) H Blood Urea Nitrogen 48 mg/dL (7-18) H Creatinine 5.2 MG/DL (0.55-1.30) H Estimat Glomerular Filtration Rate 11.1 mL/min (>60) Glucose Level 267 MG/DL (74-106) H Calcium Level 9.3 MG/DL (8.5-10.1) Phosphorus Level 2.5 MG/DL (2.5-4.9) Total Bilirubin 0.2 MG/DL (0.2-1.0) Aspartate Amino Transf (AST/SGOT) 22 U/L (15-37) Alanine Aminotransferase (ALT/SGPT) 19 U/L (12-78) Alkaline Phosphatase 136 U/L (46-116) H Total Protein 9.3 G/DL (6.4-8.2) H Albumin 3.9 G/DL (3.4-5.0) Globulin 5.4 g/dL Albumin/Globulin Ratio 0.7 (1.0-2.7) L Cortisol AM Sample Pending Random Vancomycin Level 19.2 ug/mL Test 08/19/19 11:26 POC Whole Blood Glucose 175 MG/DL (74-106) H Plan Problems: (1) Suspected COVID-19 virus infection (2) HTN (hypertension) (3) CASSANDRA (acute kidney injury) Assessment & Plan: Needs urgent HD needs access patient okay and consented see note will follow with recs new line placed discussed with team and nephrology HD line functional when checked has TPA now please use appropriately Cathflo used again this flow during dialysis on 430 was low. Will monitor may need line change 5/4 plan for HD as per renal may need to take fluid off with HD edema anasarca dressings saturated and changed will monitor cont with HD IJ left line placed for HD given extent of prior line in place. leukocytosis blood cx negative may need to change out line new line okay HD going well Continue HD as tolerated May need pressors for HD as needed (4) Anemia in chronic kidney disease (CKD) (5) Anemia (6) Renal failure (7) Suspected COVID-19 virus infection Assessment & Plan: Pt deconditioned and despite all skin preventions Pt noted to have developed several pressure injuries. . Stable dry eschar noted to clefts of R and L ears. No erythema noted . DTPI noted to L trochanter. Base of injury is maroon in colour with marginal erythema along borders. Partially opened DTPI Sacrum, R and L Buttocks. Base of wound is maroon with two small open wounds L sacrum and L buttocks. Pt has an APM/MOMO Mattress overlay and is being positioned with pillows as per tolerance and within protocols. worsening despite medical efforts will cont to provide therapy Tx.Plan: Apply Cavilon Skin Barrier to both ears Daily and prn. Apply Moisture Barrier Paste to Sacrum,R and L Buttocks. Cover with Optifoam drsgs. Change every 3 days and PRN. Apply Cavilon Skin Barrier to R and L trochanter. Cover each site with Optifoam drsgs.Change every 7 days and PRN. Apply Cavilon Skin Barrier to both heels. Cover each heel with Optifoam drsg. Change every 7 days and prn. Off-load heels with pillow. Reposition at least every 2hours or as tolerated. APM/MOMO Mattress overlay. (8) COVID-19 Assessment & Plan: COVID + c diff negative febrile leukocytosis renal insufficiency see above cont resp care Rx as per ID worsening on vent support now cxr noted on pressors prognosis guarded repeat covid ++ weaning vent and pressors off slowly showing improvement slowly recovering will need trach as unable to wean vent safely [facility] s/p trach pending peg worsening on levo max (9) Sepsis Assessment & Plan: worsening leukocytosis febrile on pressors discussed with ID. lines evaluated and clean. he is septic on pressors and needs central access in difficult venous access patient blood cultures negative will monitor temp HD cath out now with permacath left tlc still subclavian needed line c/d/i line negative c diff negative wbc resolved improved d/c planning febrile leukocytosis hold d/c infectious work up in place yeast in cultures fevers persistent fungemia abx as per ID hold on line removal cont abx repeat cx Plan for line removal plan for line holiday will replace dialysis catheter PRN Yaniv Mast Aug 19, 2019 14:09
--- NOTE | 2019-08-19 14:10 | Operative Note - PDOC ---
Operative Note Operative Note Date of Operation/Procedure: Aug 19, 2019 Pre-op Diagnosis: COVID + sepsis respiratory insufficiency renal insufficiency Fungemia bacteremia Procedure: Removal of tunneled right chest wall hemodialysis catheter Post-op Diagnosis: same as pre-op Surgeon: niyah Anesthesia: local Specimen: none Complications: none Condition: unstable Fluids: see records Estimated Blood Loss: minimal Drains: none Implant(s) used?: No Indications for Procedure 69-year-old male renal insufficiency on hemodialysis had tunneled hemodialysis catheter right chest wall internal jugular placed prior currently with fungemia and bacteremia discussed with infectious he is a nephrology plan for line removal with line holiday and possible line placement when necessary for temporary catheter. Description of Procedure Patient was made comfortable the bedside. The right chest wall dressings were removed right chest was prepped draped in the same surgical fashion. Line location tunnel tract and anatomy identified. The felt was slowly dissected out from the subcutaneous tissue and once dissected out with gentle pressure the line was removed. Hemostasis was applied for approximately 10 minutes until hemostasis noted. Catheter tip was sent for pathology. Dressings were applied. Discussed with nursing staff will monitor for hematoma bleeding. Yaniv Mast Aug 19, 2019 14:10
--- NOTE | 2019-08-19 15:45 | Cardiac Electrophysiology PN ---
Assessment/Plan Assessment/Plan 1. NSTEMI type 2. Low level and flat due to renal failure. On Aspirin. EF 60%. 2. S/P Septic shock. On Abx. Better after NS and Albumin and OFF lopressor 3. ESRD, on HD per Dr. Cole. S/P PermCath placement by IR 4. VDRF due to COVID pneumonia. S/P Tracheostomy 07/08/19. 5. Atrial fib with RVR. Off Lopressor for Low BP 6. Dysphagia, S/P PEG 07/13/19 7. COPD. 8. Anemia. DW RN Subjective Subjective In SDU on the vent via trach. Off pressors. Fio2 30%. Off isolation. Objective Last 24 Hour Vital Signs Date Time Temp Pulse Resp B/P (MAP) Pulse Ox O2 Delivery O2 Flow Rate FiO2 08/19/19 15:12 72 28 30 08/19/19 12:00 98.2 86 27 117/64 (81) 99 08/19/19 12:00 Mechanical Ventilator 15.0 Mechanical Ventilator 15.0 08/19/19 12:00 30 08/19/19 12:00 88 08/19/19 11:43 84 33 30 30 08/19/19 11:15 89 27 30 08/19/19 08:00 Mechanical Ventilator 15.0 Mechanical Ventilator 15.0 08/19/19 08:00 98.1 79 26 101/65 (77) 99 08/19/19 08:00 30 08/19/19 08:00 84 08/19/19 06:40 89 26 30 08/19/19 04:00 Mechanical Ventilator 15.0 Mechanical Ventilator 15.0 08/19/19 04:00 83 08/19/19 04:00 98.2 83 26 95/54 (68) 99 08/19/19 04:00 30 08/19/19 03:07 93 31 30 08/19/19 00:00 99.5 81 26 135/57 (83) 99 08/19/19 00:00 30 08/19/19 00:00 Mechanical Ventilator 15.0 Mechanical Ventilator 15.0 08/19/19 00:00 79 08/18/19 22:50 72 26 30 08/18/19 20:00 Mechanical Ventilator 15.0 Mechanical Ventilator 15.0 08/18/19 20:00 98.4 77 26 120/68 (85) 100 7/8/20 20:00 30 08/18/19 20:00 89 08/18/19 18:37 89 26 30 08/18/19 16:00 30 08/18/19 16:00 97.8 93 33 106/70 (82) 100 08/18/19 16:00 88 08/18/19 16:00 Mechanical Ventilator 15.0 Mechanical Ventilator 15.0 Intake and Output 08/18/19 08/19/19 19:00 07:00 Intake Total 760 ml 530 ml Output Total 2 ml Balance 758 ml 530 ml Free Water 100 ml 50 ml Tube Feeding 480 ml 480 ml Other 180 ml Stool Total 2 ml # Bowel Movements 3 5 Laboratory Tests Test 08/18/19 18:05 08/19/19 00:25 08/19/19 04:16 08/19/19 05:26 POC Whole Blood Glucose Pending 164 MG/DL (74-106) H 158 MG/DL (74-106) H White Blood Count 12.1 K/UL (4.8-10.8) H Red Blood Count 3.48 M/UL (4.70-6.10) L Hemoglobin 9.9 G/DL (14.2-18.0) L Hematocrit 33.9 % (42.0-52.0) L Mean Corpuscular Volume 97 FL (80-99) Mean Corpuscular Hemoglobin 28.4 PG (27.0-31.0) Mean Corpuscular Hemoglobin Concent 29.2 G/DL (32.0-36.0) L Red Cell Distribution Width 18.4 % (11.6-14.8) H Platelet Count 396 K/UL (150-450) Mean Platelet Volume 5.8 FL (6.5-10.1) L Neutrophils (%) (Auto) 75.5 % (45.0-75.0) H Lymphocytes (%) (Auto) 8.9 % (20.0-45.0) L Monocytes (%) (Auto) 7.6 % (1.0-10.0) Eosinophils (%) (Auto) 1.9 % (0.0-3.0) Basophils (%) (Auto) 6.2 % (0.0-2.0) H Sodium Level 143 MMOL/L (136-145) Potassium Level 4.8 MMOL/L (3.5-5.1) Chloride Level 99 MMOL/L (98-107) Carbon Dioxide Level 28 MMOL/L (21-32) Anion Gap 16 mmol/L (5-15) H Blood Urea Nitrogen 48 mg/dL (7-18) H Creatinine 5.2 MG/DL (0.55-1.30) H Estimat Glomerular Filtration Rate 11.1 mL/min (>60) Glucose Level 267 MG/DL (74-106) H Calcium Level 9.3 MG/DL (8.5-10.1) Phosphorus Level 2.5 MG/DL (2.5-4.9) Total Bilirubin 0.2 MG/DL (0.2-1.0) Aspartate Amino Transf (AST/SGOT) 22 U/L (15-37) Alanine Aminotransferase (ALT/SGPT) 19 U/L (12-78) Alkaline Phosphatase 136 U/L (46-116) H Total Protein 9.3 G/DL (6.4-8.2) H Albumin 3.9 G/DL (3.4-5.0) Globulin 5.4 g/dL Albumin/Globulin Ratio 0.7 (1.0-2.7) L Cortisol AM Sample Pending Random Vancomycin Level 19.2 ug/mL Test 08/19/19 11:26 POC Whole Blood Glucose 175 MG/DL (74-106) H Microbiology Date/Time Source Procedure Growth Status 08/18/19 04:00 Stool Clostridium difficile Toxin Assay - Final Complete Objective HEAD AND NECK: No JVD. Tracheostomy in place. Left IJ HD catheter now in place. Right IJ PermCath in place LUNGS: Decreased breath sounds. CARDIOVASCULAR: Regular S1 and S2. Tachycardic. ABDOMEN: Soft. PEG in place EXTREMITIES: No pitting edema. Gio Baker MD Aug 19, 2019 15:45
[2019-08-19] MEDS: Dyna-Hex 2% Top Sol 2oz TOPIC SCH (20:00)
--- NOTE | 2019-08-19 21:05 | General Progress Note ---
Assessment/Plan Problem List: (1) HTN (hypertension) ICD Codes: I10 - Essential (primary) hypertension SNOMED: 91394172 (2) CASSANDRA (acute kidney injury) ICD Codes: N17.9 - Acute kidney failure, unspecified SNOMED: 6007292, 55319707 (3) Anemia in chronic kidney disease (CKD) ICD Codes: N18.9 - Chronic kidney disease, unspecified; D63.1 - Anemia in chronic kidney disease SNOMED: 020166551 (4) Renal failure ICD Codes: N19 - Unspecified kidney failure SNOMED: 86724143 (5) Respiratory failure requiring intubation ICD Codes: J96.90 - Respiratory failure, unspecified, unspecified whether with hypoxia or hypercapnia; A41.89 - Other specified sepsis SNOMED: 568748908, 515066118 (6) Pneumonia due to COVID-19 virus ICD Codes: U07.1 - COVID-19; J12.89 - Other viral pneumonia SNOMED: 117671631, 648086245 (7) Sepsis due to severe acute respiratory syndrome coronavirus 2 (SARS-CoV-2) ICD Codes: U07.1 - COVID-19; A41.89 - Other specified sepsis SNOMED: 423951206, 910076282 Status: progressing, unchanged, deteriorating Assessment/Plan: new perma cath per dr rae supportive rx persistent leukocytosis trach and peg fungemia positive blood c h/o covid diaylsis Subjective ROS Limited/Unobtainable: Yes Allergies: Coded Allergies: No Known Allergies (Unverified , 05/28/19) Objective Last 24 Hour Vital Signs Date Time Temp Pulse Resp B/P (MAP) Pulse Ox O2 Delivery O2 Flow Rate FiO2 08/19/19 20:00 97.9 74 26 142/76 (98) 100 08/19/19 19:41 73 30 30 08/19/19 16:08 99 08/19/19 16:08 78 27 30 08/19/19 16:00 98.1 77 31 107/60 (76) 100 08/19/19 16:00 Mechanical Ventilator 15.0 Mechanical Ventilator 15.0 08/19/19 16:00 77 08/19/19 16:00 30 08/19/19 15:12 72 28 30 08/19/19 12:00 98.2 86 27 117/64 (81) 99 7/9/20 12:00 Mechanical Ventilator 15.0 Mechanical Ventilator 15.0 08/19/19 12:00 30 08/19/19 12:00 88 08/19/19 11:43 84 33 30 30 08/19/19 11:15 89 27 30 08/19/19 08:00 Mechanical Ventilator 15.0 Mechanical Ventilator 15.0 08/19/19 08:00 98.1 79 26 101/65 (77) 99 08/19/19 08:00 30 08/19/19 08:00 84 08/19/19 06:40 89 26 30 08/19/19 04:00 Mechanical Ventilator 15.0 Mechanical Ventilator 15.0 08/19/19 04:00 83 08/19/19 04:00 98.2 83 26 95/54 (68) 99 08/19/19 04:00 30 08/19/19 03:07 93 31 30 08/19/19 00:00 99.5 81 26 135/57 (83) 99 08/19/19 00:00 30 08/19/19 00:00 Mechanical Ventilator 15.0 Mechanical Ventilator 15.0 08/19/19 00:00 79 08/18/19 22:50 72 26 30 Intake and Output 08/18/19 08/19/19 19:00 07:00 Intake Total 760 ml 570 ml Output Total 2 ml Balance 758 ml 570 ml Free Water 100 ml 50 ml Tube Feeding 480 ml 520 ml Other 180 ml Stool Total 2 ml # Bowel Movements 3 5 Laboratory Tests 08/19/19 00:25: POC Whole Blood Glucose 164H 08/19/19 04:16: White Blood Count 12.1H, Red Blood Count 3.48L, Hemoglobin 9.9L, Hematocrit 33.9L, Mean Corpuscular Volume 97, Mean Corpuscular Hemoglobin 28.4, Mean Corpuscular Hemoglobin Concent 29.2L, Red Cell Distribution Width 18.4H, Platelet Count 396, Mean Platelet Volume 5.8L, Neutrophils (%) (Auto) 75.5H, Lymphocytes (%) (Auto) 8.9L, Monocytes (%) (Auto) 7.6, Eosinophils (%) (Auto) 1.9, Basophils (%) (Auto) 6.2H, Sodium Level 143, Potassium Level 4.8, Chloride Level 99, Carbon Dioxide Level 28, Anion Gap 16H, Blood Urea Nitrogen 48H, Creatinine 5.2H, Estimat Glomerular Filtration Rate 11.1, Glucose Level 267H, Calcium Level 9.3, Phosphorus Level 2.5, Total Bilirubin 0.2, Aspartate Amino Transf (AST/SGOT) 22, Alanine Aminotransferase (ALT/SGPT) 19, Alkaline Phosphatase 136H, Total Protein 9.3H, Albumin 3.9, Globulin 5.4, Albumin/ Globulin Ratio 0.7L, Cortisol AM Sample [Pending], Random Vancomycin Level 19.2 08/19/19 05:26: POC Whole Blood Glucose 158H 08/19/19 11:26: POC Whole Blood Glucose 175H 08/19/19 18:23: POC Whole Blood Glucose 196H Height (Feet): 6 Height (Inches): 1.00 Weight (Pounds): 173 Karishma Mulligan MD Aug 19, 2019 21:05
--- NOTE | 2019-08-19 23:19 | Pulmonolgy Critical Care Note ---
Critical Care - Asmt/Plan Assessment/Plan: Pulmonary Progress Note HPI: Patient is a 68 year old man, [facility] resident, admitted c/o shortness of breath, cough, noted to have Covid 19 Pneumonia, Respiratory Failure Remains on Ventilator, CXR infiltrates stable 7/2 Anemia CKD on HD, Intemittent hypotension, prn albumin, beta sonia being held, on Mitodrine, will need eventual placement, second consecutive repeat COVID19 test negative Preserved EF FIO2 30%, P5, adequate O2 sats, remains on ACVC, tolerating CPAP PS 8, s/p Tracheostomy previously, sp PEG, sp HD removal- fungemia ID following MRSA sputum Reviewed earlier Past Medical History: COPD, CKD, Hypertension, Anemia Allergies: No Known Allergies Improving Pulmonary Status on HD Physical Exam Vital Signs Noted Stable on ventilator Chronically ill appearing HEENT: Trach CDI Chest: CTAB Hreart: HS1, HS2, RRR Abdomen: SNTND, Gtube Extremities: Wasted, no edema RESEARCH COORDINATOR:No focal signs Impression: COVID-19 virus infection - now Covid negative Pneumonia Respiratory failure on ventilator, wean as tolerated CKD - on HD Previous NSTEMI Hypotension resolved Cardiomegaly Fungemia MRSA sputum COPD Chronic Kidney Disease - HD H/o Hypertension Anemia Plan: trach care as is Antibiotics per ID HD per renal monitor vitals AC - wean as tolerated anxiolytics if needed 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 PRN Monitor lab data nutrition feeds Hemodialysis per Renal, currently on line holiday impression, plan, and exam edited and reviewed in detail care discussed with RN Laboratory Tests Noted: CXR: No acute changes Subjective ROS Limited/Unobtainable: Yes Allergies: Coded Allergies: No Known Allergies (Unverified , 05/28/19) Critical Care - Objective Last 24 Hour Vital Signs Date Time Temp Pulse Resp B/P (MAP) Pulse Ox O2 Delivery O2 Flow Rate FiO2 08/19/19 23:07 79 29 30 08/19/19 21:17 74 30 129/73 (91) 08/19/19 20:00 30 08/19/19 20:00 97.9 74 26 142/76 (98) 100 08/19/19 20:00 Mechanical Ventilator Mechanical Ventilator 08/19/19 19:41 73 30 30 08/19/19 19:34 73 08/19/19 16:08 99 08/19/19 16:08 78 27 30 08/19/19 16:00 98.1 77 31 107/60 (76) 100 08/19/19 16:00 Mechanical Ventilator 15.0 Mechanical Ventilator 15.0 08/19/19 16:00 77 08/19/19 16:00 30 08/19/19 15:12 72 28 30 08/19/19 12:00 98.2 86 27 117/64 (81) 99 08/19/19 12:00 Mechanical Ventilator 15.0 Mechanical Ventilator 15.0 08/19/19 12:00 30 08/19/19 12:00 88 08/19/19 11:43 84 33 30 30 08/19/19 11:15 89 27 30 08/19/19 08:00 Mechanical Ventilator 15.0 Mechanical Ventilator 15.0 08/19/19 08:00 98.1 79 26 101/65 (77) 99 08/19/19 08:00 30 08/19/19 08:00 84 08/19/19 06:40 89 26 30 08/19/19 04:00 Mechanical Ventilator 15.0 Mechanical Ventilator 15.0 08/19/19 04:00 83 08/19/19 04:00 98.2 83 26 95/54 (68) 99 08/19/19 04:00 30 08/19/19 03:07 93 31 30 08/19/19 00:00 99.5 81 26 135/57 (83) 99 08/19/19 00:00 30 08/19/19 00:00 Mechanical Ventilator 15.0 Mechanical Ventilator 15.0 08/19/19 00:00 79 Micro: Microbiology Date/Time Source Procedure Growth Status 08/18/19 04:00 Stool Clostridium difficile Toxin Assay - Final Complete Accucheck: 196 Critical Care - Subjective ROS Limited/Unobtainable: Yes Condition: stable FI02: 30 Vent Support Breath Rate: 26 Vent Support Mode: AC Vent Tidal Volume: 500 Sputum Amount: Moderate PEEP: 5.0 PIP: 30 Tube Feeding Amount: 40 I&O: Intake and Output 08/18/19 08/19/19 19:00 07:00 Intake Total 760 ml 570 ml Output Total 2 ml Balance 758 ml 570 ml Free Water 100 ml 50 ml Tube Feeding 480 ml 520 ml Other 180 ml Stool Total 2 ml # Bowel Movements 3 5 ET-Tube: 7.5 ET Position: 24 Arturo Mckeon MD Aug 19, 2019 23:19
[2019-08-20] VITALS: BP 127/73
[2019-08-20 04:00] VITALS: BP 109/59
[2019-08-20] MEDS: NovoLOG Insulin Flexpen SUBQ SCH ×4 (05:31→23:44)
[2019-08-20 08:00] VITALS: BP 122/57
--- NOTE | 2019-08-20 08:03 | General Progress Note ---
Assessment/Plan Status: progressing, unchanged, deteriorating Assessment/Plan: 1. Diabetes. 2. Hypertension. 3. Coronary artery disease. 4. COPD. 5. Psychiatric disorder with schizophrenia. 6. History of hepatitis C. 7. HLP. 8. Chronic kidney disease, now with acute renal failure. 9. Anemia. 10. Hypothyroidism. 11. Spinal stenosis. 12. Constipation. 13. GERD. 14. COVID positive HD per nephrology fu labs s/p PEG GTF TF at 40 cc imodium lomotil neg C.diff off reglan monitor for residuals Subjective ROS Limited/Unobtainable: No Allergies: Coded Allergies: No Known Allergies (Unverified , 05/28/19) Objective Last 24 Hour Vital Signs Date Time Temp Pulse Resp B/P (MAP) Pulse Ox O2 Delivery O2 Flow Rate FiO2 08/20/19 07:10 84 30 30 08/20/19 04:00 98.6 84 30 109/59 (76) 100 08/20/19 04:00 Mechanical Ventilator Mechanical Ventilator 08/20/19 04:00 30 08/20/19 03:28 72 08/20/19 03:05 75 30 30 08/20/19 00:00 Mechanical Ventilator Mechanical Ventilator 08/20/19 00:00 98.2 83 28 127/73 (91) 100 08/20/19 00:00 30 08/19/19 23:31 79 08/19/19 23:07 79 29 30 08/19/19 21:17 74 30 129/73 (91) 08/19/19 20:00 30 08/19/19 20:00 97.9 74 26 142/76 (98) 100 08/19/19 20:00 Mechanical Ventilator Mechanical Ventilator 08/19/19 19:41 73 30 30 08/19/19 19:34 73 08/19/19 16:08 99 08/19/19 16:08 78 27 30 08/19/19 16:00 98.1 77 31 107/60 (76) 100 08/19/19 16:00 Mechanical Ventilator 15.0 Mechanical Ventilator 15.0 08/19/19 16:00 77 08/19/19 16:00 30 08/19/19 15:12 72 28 30 08/19/19 12:00 98.2 86 27 117/64 (81) 99 08/19/19 12:00 Mechanical Ventilator 15.0 Mechanical Ventilator 15.0 08/19/19 12:00 30 08/19/19 12:00 88 08/19/19 11:43 84 33 30 30 08/19/19 11:15 89 27 30 Intake and Output 08/19/19 08/20/19 19:00 07:00 Intake Total 680 ml 490 ml Output Total 1 ml 2 ml Balance 679 ml 488 ml Free Water 100 ml Tube Feeding 360 ml 440 ml Other 220 ml 50 ml Stool Total 1 ml 2 ml # Bowel Movements 1 3 Laboratory Tests 08/19/19 11:26: POC Whole Blood Glucose 175H 08/19/19 18:23: POC Whole Blood Glucose 196H Height (Feet): 6 Height (Inches): 1.00 Weight (Pounds): 173 General Appearance: no apparent distress EENT: normal ENT inspection Neck: supple Cardiovascular: normal rate Respiratory/Chest: decreased breath sounds Abdomen: normal bowel sounds, non tender, soft Extremities: non-tender Marito Ramires MD Aug 20, 2019 08:03
[2019-08-20] MEDS: Fluconazole 100mg tab NG SCH (08:30)
[2019-08-20] MEDS: Lomotil 2.5mg tab ORAL SCH ×2 (08:30→17:03)
[2019-08-20] MEDS: Pantoprazole Inj IVP SCH (08:30)
[2019-08-20] MEDS: Enoxaparin 30mg Inj SUBQ SCH (08:32)
[2019-08-20] MEDS: Midodrine 10mg tab NG SCH ×3 (08:33→17:00)
--- NOTE | 2019-08-20 09:07 | Surgery Progress Note ---
Surgery Progress Note Subjective Procedure Performed Removal of tunneled right chest wall hemodialysis catheter Additional Comments wbc improved line removed pending labs will need new line soon for HD currently on line holiday cont abx Objective Last 24 Hour Vital Signs Date Time Temp Pulse Resp B/P (MAP) Pulse Ox O2 Delivery O2 Flow Rate FiO2 08/20/19 08:00 30 08/20/19 08:00 98.0 91 26 122/57 (78) 100 08/20/19 07:10 84 30 30 08/20/19 04:00 98.6 84 30 109/59 (76) 100 08/20/19 04:00 Mechanical Ventilator Mechanical Ventilator 08/20/19 04:00 30 08/20/19 03:28 72 08/20/19 03:05 75 30 30 08/20/19 00:00 Mechanical Ventilator Mechanical Ventilator 08/20/19 00:00 98.2 83 28 127/73 (91) 100 08/20/19 00:00 30 08/19/19 23:31 79 08/19/19 23:07 79 29 30 08/19/19 21:17 74 30 129/73 (91) 08/19/19 20:00 30 08/19/19 20:00 97.9 74 26 142/76 (98) 100 08/19/19 20:00 Mechanical Ventilator Mechanical Ventilator 08/19/19 19:41 73 30 30 08/19/19 19:34 73 08/19/19 16:08 99 08/19/19 16:08 78 27 30 08/19/19 16:00 98.1 77 31 107/60 (76) 100 08/19/19 16:00 Mechanical Ventilator 15.0 Mechanical Ventilator 15.0 08/19/19 16:00 77 08/19/19 16:00 30 08/19/19 15:12 72 28 30 08/19/19 12:00 98.2 86 27 117/64 (81) 99 08/19/19 12:00 Mechanical Ventilator 15.0 Mechanical Ventilator 15.0 08/19/19 12:00 30 08/19/19 12:00 88 08/19/19 11:43 84 33 30 30 08/19/19 11:15 89 27 30 I&O Intake and Output 08/19/19 08/20/19 19:00 07:00 Intake Total 680 ml 490 ml Output Total 1 ml 2 ml Balance 679 ml 488 ml Free Water 100 ml Tube Feeding 360 ml 440 ml Other 220 ml 50 ml Stool Total 1 ml 2 ml # Bowel Movements 1 3 Dressing: other Wound: other Drains: other Cardiovascular: RSR Respiratory: decreased breath sounds Abdomen: soft, non-tender, present bowel sounds Extremities: no edema, no tenderness, no cyanosis Laboratory Tests Test 08/19/19 11:26 08/19/19 18:23 POC Whole Blood Glucose 175 MG/DL (74-106) H 196 MG/DL (74-106) H Plan Problems: (1) Suspected COVID-19 virus infection (2) HTN (hypertension) (3) CASSANDRA (acute kidney injury) Assessment & Plan: Needs urgent HD needs access patient okay and consented see note will follow with recs new line placed discussed with team and nephrology HD line functional when checked has TPA now please use appropriately Cathflo used again this flow during dialysis on 430 was low. Will monitor may need line change 06/13 plan for HD as per renal may need to take fluid off with HD edema anasarca dressings saturated and changed will monitor cont with HD IJ left line placed for HD given extent of prior line in place. leukocytosis blood cx negative may need to change out line new line okay HD going well Continue HD as tolerated May need pressors for HD as needed (4) Anemia in chronic kidney disease (CKD) (5) Anemia (6) Renal failure (7) Suspected COVID-19 virus infection Assessment & Plan: Pt deconditioned and despite all skin preventions Pt noted to have developed several pressure injuries. . Stable dry eschar noted to clefts of R and L ears. No erythema noted . DTPI noted to L trochanter. Base of injury is maroon in colour with marginal erythema along borders. Partially opened DTPI Sacrum, R and L Buttocks. Base of wound is maroon with two small open wounds L sacrum and L buttocks. Pt has an APM/MOMO Mattress overlay and is being positioned with pillows as per tolerance and within protocols. worsening despite medical efforts will cont to provide therapy Tx.Plan: Apply Cavilon Skin Barrier to both ears Daily and prn. Apply Moisture Barrier Paste to Sacrum,R and L Buttocks. Cover with Optifoam drsgs. Change every 3 days and PRN. Apply Cavilon Skin Barrier to R and L trochanter. Cover each site with Optifoam drsgs.Change every 7 days and PRN. Apply Cavilon Skin Barrier to both heels. Cover each heel with Optifoam drsg. Change every 7 days and prn. Off-load heels with pillow. Reposition at least every 2hours or as tolerated. APM/MOMO Mattress overlay. (8) COVID-19 Assessment & Plan: COVID + c diff negative febrile leukocytosis renal insufficiency see above cont resp care Rx as per ID worsening on vent support now cxr noted on pressors prognosis guarded repeat covid ++ weaning vent and pressors off slowly showing improvement slowly recovering will need trach as unable to wean vent safely called and spoke with [facility]. consent obtained s/p trach pending peg worsening on levo max (9) Sepsis Assessment & Plan: worsening leukocytosis febrile on pressors discussed with ID. lines evaluated and clean. he is septic on pressors and needs central access in difficult venous access patient blood cultures negative will monitor temp HD cath out now with permacath left tlc still subclavian needed line c/d/i line negative c diff negative wbc resolved improved d/c planning febrile leukocytosis hold d/c infectious work up in place yeast in cultures fevers persistent fungemia abx as per ID hold on line removal cont abx repeat cx Plan for line removal plan for line holiday will replace dialysis catheter PRN Yaniv Mast Aug 20, 2019 09:07
--- NOTE | 2019-08-20 09:16 | General Progress Note ---
Assessment/Plan Problem List: (1) HTN (hypertension) ICD Codes: I10 - Essential (primary) hypertension SNOMED: 19511923 (2) CASSANDRA (acute kidney injury) ICD Codes: N17.9 - Acute kidney failure, unspecified SNOMED: 7674787, 88834041 (3) Anemia in chronic kidney disease (CKD) ICD Codes: N18.9 - Chronic kidney disease, unspecified; D63.1 - Anemia in chronic kidney disease SNOMED: 739899067 (4) Renal failure ICD Codes: N19 - Unspecified kidney failure SNOMED: 10037142 (5) Respiratory failure requiring intubation ICD Codes: J96.90 - Respiratory failure, unspecified, unspecified whether with hypoxia or hypercapnia; A41.89 - Other specified sepsis SNOMED: 095193271, 349842325 (6) Pneumonia due to COVID-19 virus ICD Codes: U07.1 - COVID-19; J12.89 - Other viral pneumonia SNOMED: 961191409, 031794871 (7) Sepsis due to severe acute respiratory syndrome coronavirus 2 (SARS-CoV-2) ICD Codes: U07.1 - COVID-19; A41.89 - Other specified sepsis SNOMED: 337270527, 657750826 Status: progressing, unchanged, deteriorating Assessment/Plan: new perma cath per dr rae leukocytosis is improving trach and peg fungemia .positive blood cx h/o covid diaylsis prn per renal afebrile reviewed chart and labs Subjective ROS Limited/Unobtainable: Yes Allergies: Coded Allergies: No Known Allergies (Unverified , 05/28/19) Objective Last 24 Hour Vital Signs Date Time Temp Pulse Resp B/P (MAP) Pulse Ox O2 Delivery O2 Flow Rate FiO2 08/20/19 08:00 30 08/20/19 08:00 98.0 91 26 122/57 (78) 100 08/20/19 07:10 84 30 30 08/20/19 04:00 98.6 84 30 109/59 (76) 100 08/20/19 04:00 Mechanical Ventilator Mechanical Ventilator 08/20/19 04:00 30 08/20/19 03:28 72 08/20/19 03:05 75 30 30 08/20/19 00:00 Mechanical Ventilator Mechanical Ventilator 08/20/19 00:00 98.2 83 28 127/73 (91) 100 08/20/19 00:00 30 08/19/19 23:31 79 08/19/19 23:07 79 29 30 08/19/19 21:17 74 30 129/73 (91) 08/19/19 20:00 30 08/19/19 20:00 97.9 74 26 142/76 (98) 100 08/19/19 20:00 Mechanical Ventilator Mechanical Ventilator 08/19/19 19:41 73 30 30 08/19/19 19:34 73 08/19/19 16:08 99 08/19/19 16:08 78 27 30 08/19/19 16:00 98.1 77 31 107/60 (76) 100 08/19/19 16:00 Mechanical Ventilator 15.0 Mechanical Ventilator 15.0 08/19/19 16:00 77 08/19/19 16:00 30 08/19/19 15:12 72 28 30 08/19/19 12:00 98.2 86 27 117/64 (81) 99 08/19/19 12:00 Mechanical Ventilator 15.0 Mechanical Ventilator 15.0 08/19/19 12:00 30 08/19/19 12:00 88 08/19/19 11:43 84 33 30 30 08/19/19 11:15 89 27 30 Intake and Output 08/19/19 08/20/19 19:00 07:00 Intake Total 680 ml 490 ml Output Total 1 ml 2 ml Balance 679 ml 488 ml Free Water 100 ml Tube Feeding 360 ml 440 ml Other 220 ml 50 ml Stool Total 1 ml 2 ml # Bowel Movements 1 3 Laboratory Tests 08/19/19 11:26: POC Whole Blood Glucose 175H 08/19/19 18:23: POC Whole Blood Glucose 196H Height (Feet): 6 Height (Inches): 1.00 Weight (Pounds): 173 Karishma Mulligan MD Aug 20, 2019 09:16
[2019-08-20 11:21] LABS: BASOPHILS % (AUTO) 0.9 % (0.0-2.0); EOSINOPHILS % (AUTO) 4.1 % (0.0-3.0); HEMATOCRIT 32.9 % (42.0-52.0); HEMOGLOBIN 9.8 G/DL (14.2-18.0); LYMPHOCYTES % (AUTO) 11.6 % (20.0-45.0); MEAN CORPUSCULAR VOLUME 94 FL (80-99); MONOCYTES % (AUTO) 7.6 % (1.0-10.0); NEUTROPHILS % (AUTO) 75.8 % (45.0-75.0); PLATELET COUNT 419 K/UL (150-450); RED BLOOD COUNT 3.51 M/UL (4.70-6.10); RED CELL DISTRIBUTION WIDTH 18.5 % (11.6-14.8); WHITE BLOOD COUNT 14.9 K/UL (4.8-10.8)
--- NOTE | 2019-08-20 11:21 | Hematology/Onc Progress Note ---
Assessment/Plan Assessment/Plan Assessment and Recs: # Anemia of chronic disease, likely related ot underlying kidney disease has COIVD19++++++ --> hgb trend 9-->8-->7.3-->7.9-->6.8->9.5-->10->8.3-->7.7-->7.1-->8.9->8.8->7.7 -->8.1 ->7.9-->7.7 -->8.2-->8.1 -->7.9-->8.5 -->9->9.2-->9.5-->10.7 -->9.8--> 10.2-->11.8 -->11.9-->8.8 ->9.4->9-->8.3 -->8.5-->9.4->9.8-->9-->8.3-->11.6--> 10.8-->10.5-->10->9.7->9.9 --> transfuse as needed, hgb goal >7 --> no evidence of hemolysis --> peripheral smear has been reviewed --> epogen started 3 x a week ==>> transfuse 06/08, 06/15 # Leukocytosis likely related to suspected COVID-19 virus infection --> completed plaquenil --> trend smear as needed --> wbc trend: 4-->11-->14.5-->21-->26-->21->24--.28-->23-->19-->16.2-->21--> 11.2 -->12.5-->12.3-->12.4-->18.5-->18.5-->17->13-->18.2-->22.2-->25-->17.4-->17 -->14.2-->14-->16-->15.5-->9->17->11.5-->12->12-->18 --> pulm is aware --> on abx cefepime/vanc->zosyn/vanc-->dom/vanc-->dom-->levaquin/cefepime--> vanc/zosyn --> vanc --> pressors as needed --> 06/27 covid 19++ --> pressors as needed in icu --> c diff negative 08/08 --> blood cx++ # Thrombocytopenia/Lymphopenia --> likely related to covid19 --> plt 129k-->186k-->251-->285-->384 -->430-->539-->515-->447-->451-->404-->544 -->244 -->393 # Respiratory failure with covid19+ --> s/p vent/trach --> weaning # Possible Pneumonia --> abx completed --> 07/13 cxr: Improved right lung infiltrates. # Cardiomegaly # Transaminitis with Elevated AST # COPD # Chronic Kidney Disease --> per renal hd --> s/p right femoral cath 07/02 # Hypertension # peg # Dvt ppx lovenox Appreciate consultation and ernesto Rn Subjective HEENT: Denies: no symptoms, eye pain, blurred vision, tearing, double vision, ear pain, ear discharge, nose pain, nose congestion, throat pain, throat swelling, mouth pain, mouth swelling, other Cardiovascular: Denies: no symptoms, chest pain, edema, irregular heart rate, lightheadedness, palpitations, syncope, other Respiratory: Denies: no symptoms, cough, shortness of breath, SOB with excertion, SOB at rest, sputum, wheezing, other Gastrointestinal/Abdominal: Denies: no symptoms, abdomen distended, abdominal pain, black stools, tarry stools, blood in stool, constipated, diarrhea, difficulty swallowing, nausea, poor appetite, poor fluid intake, rectal bleeding , vomiting, other Genitourinary: Denies: no symptoms, burning, discharge, frequency, flank pain, hematuria, incontinence, pain, urgency, other Endocrine: Denies: no symptoms, excessive sweating, flushing, intolerance to cold, intolerance to heat, increased hunger, increased thirst, increased urine, unexplained weight gain, unexplained weight loss, other Hematologic/Lymphatic: Denies: no symptoms, anemia, easy bleeding, easy bruising, adenopathy, other Allergies: Coded Allergies: No Known Allergies (Unverified , 05/28/19) Subjective 06/01 nv, extremely agitated, not allowing labs draws, no night sweats, cbc ordered 06/02 confused, restraints, on abx and plaquenil, hgb 7.9, nrb 15 L 06/03 is with nonrebreather, but not compliant, remains confused 06/05 no bleeding, labs noted, no major bleeding, otherwise comfortable 06/06 labs reviewed, no bleeding, meds noted, no night sweats, on levo and nonrebreather 06/07 labs noted, no bleeding, meds reviewed, no bleeding, wbc higher 06/08 to get 2 units prbc, no night sweats, meds reviewed 06/09 is on cefepime and vanc, labs noted, ernesto Rn, no bleeding 06/10 no major changes, labs reviewed, wbc 28k, on abx, cefepime 06/12 remains in icu, labs noted, no night sweats or bleeding 06/13 sluggish pupils, remains agitated, per psych, no bleding, on vent, wbc sitll high 06/14 still confused, remains on vent, with ng, running nepro, on pressors 06/15 icu, febrile, non verbal, hgb 7.1, blood pending, completed plaq 06/16 remains in the icu, nonverbal, plan for hd tomorrow, ernesto rn 06/17 in icu, on pressor, nonverbal, on abx, no bleeding 06/19 no bleeding, nonverbal in icu, hgb is 7.7 06/20 on zosyn, tube feeds, vent, labs noted, in icu, nv 06/21 gettng hd as per renal, in icu, nv, no bleeding, tfs 06/22 icu, cxr with slight improvement, cooling blanket, weaning today 06/23 wewaning, in icu, on vent, abx, and pressors as needed, labs noted 06/24 failed weaning, off abx, completed plaquenil, hgb 8.1 06/26 icu, weaning for this am, afebrile, hgb 8 06/27 in icu, remains comotose, weaning started on peep, no night sweats 06/28 weaning today, off abx, restraints, no distress, h/h stable 06/29 covid 19+, failed weaning, no blood transfusion needed 06/30 icu, on vent, labs reviewed, no distress 07/01 in icu, may need trach, remains on hd per renal, labs noted 07/02 s/p right fem cath, failed wean, no new orders, h/h stable 07/03 is somewhat more responsive, on abx, no bleeding, weaning and HD today 07/04 hd as per renal, weaning off vent, no bleeding today 07/05 obtunded, no bleding overnight, with hd for tomorrow noted, vanc 07/08 no events, remains with trach/vent, ernesto Rn, no bleeding, cbc is noted 07/09 no overnight events, peg for friday pending consent 07/10 off pressors, vent, restraints, labs reviewed 07/11 no acute events is on pressors, intubated, agitated still 07/12 is resting comfortably, no bleeding, emds reviewed and noted 07/13 icu, no events, trach, cxr reviewed, 07/14 is onv ent, tachypneic and tachycardic, labs noted 07/15 remains confused, intubated, ernesto Rn, no bleeding 07/17 icu, cxr improving infiltrates, levo gtt, airborne/contact isolation 07/18 is on broad spectrum abx, is on levaquin and cefepime, wbc 16 agitated 07/19 icu, levo gtt, cxr unchanged, tachy, hd thursday 07/20 sedated, safety restraints, labs reviewed 07/21 hd was done yesterday, lower pressor requirements, wbc is worse, on abx 07/22 icu, meds and labs reviewed, vent, no distress 07/24 on vent, in icu, labs noted, remains agitated, and confused 07/25 remains obtunded, on vent, on pressor, hgb 9, wbc elev 07/26 icu, levo gtt, vent, iv abx, nonverbal 07/27 failed weaning, labs reviewed, repeat covid swab pending 07/28 labs are noted, no bleeding, on vent/trach gtube feeds ernesto rn 07/29 iuc, restraints, no new changes, vent 07/31 is asleep, comfortable, no events, labs reviewed, restraints+ 08/01 no events, agitated, no bleeding, meds noted, on gtube feeds 08/02 remains on vent, no bleeding, wbc higher 19, hgb 9, on abx 08/03 labs noted, on vent, no bleeding, wbc 17, hgb better 08/04 labs reviewed, no bleeding, does not require prbc, on vent 08/05 more alert, is on trach, vent, no major events, no bleeding, peg+ 08/07 no bleeding no chills, no night sweats, is on vent/trach 08/08 recent covid swab negative, restraints, cxr unchanged 08/09 c diff negative, zosyn, hd today, gtf 08/10 no overnight events, labs reviewed, afebrile 08/11 labs reviewed, meds noted, no fc, no major changes, wbc 12 08/12 abx changed to flucon, on abx, wbc 12 08/14 bp on low end, blood cx++, vanc, vent 08/15 no bleeding, no night sweats, on abx, trach/vent 08/16 is able to nod head in response to question, labs noted, on vent/trach 08/17 labs reviewed, hgb 9.8, no bleeding, on abx, meds noted 08/18 labs noted, no bleeding, hgb stable, 9.9, mildly alert 08/19 labs are noted, no bleeding, meds reviewed, line holiday per surg Objective Objective Current Medications Medications (Trade) Dose Ordered Sig/Anthony Route PRN Reason Start Time Stop Time Status Last Admin Dose Admin Acetaminophen (Tylenol) 650 mg Q4H PRN NG For Pain 08/04/19 21:38 09/03/19 21:37 08/18/19 05:21 Acetaminophen (Tylenol) 650 mg Q4H PRN NG Temp >100.5 08/15/19 13:30 09/08/19 08:29 Chlorhexidine Gluconate (Michelle-Hex 2%) 1 applic DAILY@1999 TOPIC 08/05/19 20:00 09/05/19 19:59 08/18/19 20:12 Dextrose (Dextrose 50%) 25 ml Q30M PRN IV Hypoglycemia 08/04/19 22:00 09/18/19 19:29 Dextrose (Dextrose 50%) 50 ml Q30M PRN IV Hypoglycemia 08/04/19 22:00 09/18/19 19:29 Diphenoxylate HCl/ Atropine (Lomotil) 2.5 mg BID ORAL 08/18/19 18:00 09/17/19 17:59 08/20/19 08:30 Enoxaparin Sodium (Lovenox) 30 mg DAILY SUBQ 08/05/19 09:00 08/27/19 08:59 08/20/19 08:32 Epoetin Aftab (Epoetin Aftab(ESRD on dialysis)) 10,000 unit FRI-FRI-FRI SUBQ 08/11/19 21:00 11/09/19 20:59 08/18/19 20:55 Fluconazole (Diflucan) 200 mg DAILY NG 08/13/19 10:24 08/24/19 10:23 08/20/19 08:30 Haloperidol Lactate 5 mg/ Dextrose 56 ml @ 224 mls/hr Q6H PRN IVPB Agitation 08/04/19 21:38 09/18/19 21:37 08/19/19 02:26 Hydralazine HCl (Apresoline) 10 mg Q4H PRN IV Blood pressure over 160 systol 08/04/19 21:39 11/02/19 21:38 Insulin Aspart (NovoLOG) EVERY 6 HOURS SUBQ 08/05/19 00:00 09/19/19 00:00 08/20/19 05:31 Loperamide HCl (Imodium) 2 mg Q6H NG 08/18/19 14:00 09/15/19 13:59 08/20/19 08:31 Midodrine (Pro-Amatine) 10 mg THREE TIMES A DAY NG 08/15/19 18:00 11/13/19 17:59 08/19/19 18:24 Pantoprazole (Protonix) 40 mg DAILY IVP 08/05/19 09:00 08/26/19 08:59 08/20/19 08:30 Vancomycin HCl (Vanco pharmacy to dose) 1 ea DAILY PRN MISC Per rx protocol 08/15/19 08:45 09/14/19 08:44 Last 24 Hour Vital Signs Date Time Temp Pulse Resp B/P (MAP) Pulse Ox O2 Delivery O2 Flow Rate FiO2 08/20/19 08:00 30 08/20/19 08:00 98.0 91 26 122/57 (78) 100 08/20/19 07:10 84 30 30 08/20/19 04:00 98.6 84 30 109/59 (76) 100 08/20/19 04:00 Mechanical Ventilator Mechanical Ventilator 08/20/19 04:00 30 08/20/19 03:28 72 08/20/19 03:05 75 30 30 08/20/19 00:00 Mechanical Ventilator Mechanical Ventilator 08/20/19 00:00 98.2 83 28 127/73 (91) 100 08/20/19 00:00 30 08/19/19 23:31 79 08/19/19 23:07 79 29 30 08/19/19 21:17 74 30 129/73 (91) 08/19/19 20:00 30 08/19/19 20:00 97.9 74 26 142/76 (98) 100 08/19/19 20:00 Mechanical Ventilator Mechanical Ventilator 08/19/19 19:41 73 30 30 08/19/19 19:34 73 08/19/19 16:08 99 08/19/19 16:08 78 27 30 08/19/19 16:00 98.1 77 31 107/60 (76) 100 08/19/19 16:00 Mechanical Ventilator 15.0 Mechanical Ventilator 15.0 08/19/19 16:00 77 08/19/19 16:00 30 08/19/19 15:12 72 28 30 08/19/19 12:00 98.2 86 27 117/64 (81) 99 08/19/19 12:00 Mechanical Ventilator 15.0 Mechanical Ventilator 15.0 08/19/19 12:00 30 08/19/19 12:00 88 08/19/19 11:43 84 33 30 30 08/19/19 11:15 89 27 30 08/19/19 08:00 Mechanical Ventilator 15.0 Mechanical Ventilator 15.0 08/19/19 08:00 98.1 79 26 101/65 (77) 99 08/19/19 08:00 30 08/19/19 08:00 84 08/19/19 06:40 89 26 30 08/19/19 04:00 Mechanical Ventilator 15.0 Mechanical Ventilator 15.0 08/19/19 04:00 83 08/19/19 04:00 98.2 83 26 95/54 (68) 99 08/19/19 04:00 30 08/19/19 03:07 93 31 30 08/19/19 00:00 99.5 81 26 135/57 (83) 99 08/19/19 00:00 30 08/19/19 00:00 Mechanical Ventilator 15.0 Mechanical Ventilator 15.0 08/19/19 00:00 79 08/18/19 22:50 72 26 30 08/18/19 20:00 Mechanical Ventilator 15.0 Mechanical Ventilator 15.0 08/18/19 20:00 98.4 77 26 120/68 (85) 100 08/18/19 20:00 30 08/18/19 20:00 89 08/18/19 18:37 89 26 30 08/18/19 16:00 30 08/18/19 16:00 97.8 93 33 106/70 (82) 100 08/18/19 16:00 88 08/18/19 16:00 Mechanical Ventilator 15.0 Mechanical Ventilator 15.0 08/18/19 15:15 93 26 30 08/18/19 12:00 97.1 77 23 113/73 (86) 100 08/18/19 12:00 30 08/18/19 12:00 Mechanical Ventilator 15.0 Mechanical Ventilator 15.0 08/18/19 11:29 75 Intake and Output 08/19/19 08/20/19 19:00 07:00 Intake Total 680 ml 490 ml Output Total 1 ml 2 ml Balance 679 ml 488 ml Free Water 100 ml Tube Feeding 360 ml 440 ml Other 220 ml 50 ml Stool Total 1 ml 2 ml # Bowel Movements 1 3 Labs Test 08/17/19 11:48 08/17/19 16:56 08/17/19 23:35 08/18/19 05:20 POC Whole Blood Glucose 200 MG/DL (74-106) 180 MG/DL (74-106) Test 08/18/19 12:50 08/18/19 18:05 08/19/19 00:25 08/19/19 04:16 POC Whole Blood Glucose 164 MG/DL (74-106) White Blood Count 12.1 K/UL (4.8-10.8) Red Blood Count 3.48 M/UL (4.70-6.10) Hemoglobin 9.9 G/DL (14.2-18.0) Hematocrit 33.9 % (42.0-52.0) Mean Corpuscular Volume 97 FL (80-99) Mean Corpuscular Hemoglobin 28.4 PG (27.0-31.0) Mean Corpuscular Hemoglobin Concent 29.2 G/DL (32.0-36.0) Red Cell Distribution Width 18.4 % (11.6-14.8) Platelet Count 396 K/UL (150-450) Mean Platelet Volume 5.8 FL (6.5-10.1) Neutrophils (%) (Auto) 75.5 % (45.0-75.0) Lymphocytes (%) (Auto) 8.9 % (20.0-45.0) Monocytes (%) (Auto) 7.6 % (1.0-10.0) Eosinophils (%) (Auto) 1.9 % (0.0-3.0) Basophils (%) (Auto) 6.2 % (0.0-2.0) Sodium Level 143 MMOL/L (136-145) Potassium Level 4.8 MMOL/L (3.5-5.1) Chloride Level 99 MMOL/L (98-107) Carbon Dioxide Level 28 MMOL/L (21-32) Anion Gap 16 mmol/L (5-15) Blood Urea Nitrogen 48 mg/dL (7-18) Creatinine 5.2 MG/DL (0.55-1.30) Estimat Glomerular Filtration Rate 11.1 mL/min (>60) Glucose Level 267 MG/DL (74-106) Calcium Level 9.3 MG/DL (8.5-10.1) Phosphorus Level 2.5 MG/DL (2.5-4.9) Total Bilirubin 0.2 MG/DL (0.2-1.0) Aspartate Amino Transf (AST/SGOT) 22 U/L (15-37) Alanine Aminotransferase (ALT/SGPT) 19 U/L (12-78) Alkaline Phosphatase 136 U/L (46-116) Total Protein 9.3 G/DL (6.4-8.2) Albumin 3.9 G/DL (3.4-5.0) Globulin 5.4 g/dL Albumin/Globulin Ratio 0.7 (1.0-2.7) Random Vancomycin Level 19.2 ug/mL Test 08/19/19 05:26 08/19/19 11:26 08/19/19 18:23 08/20/19 11:00 POC Whole Blood Glucose 158 MG/DL (74-106) 175 MG/DL (74-106) 196 MG/DL (74-106) Height (Feet): 6 Height (Inches): 1.00 Weight (Pounds): 173 Objective General: nv, confused, sedated Heent: bilateral eye normal inspection, bilateral eye PERRL ++Ng Respiratory: normal breath sounds, no respiratory distress, intubated/vent +++ trach+++ Cardiovascular: regular rate, rhythm, no edema Gastrointestinal: normal inspection, soft, non-distended, peg+ Rectal: deferred Musculoskeletal: normal range of motion, non-tender, R fem cath++ Neurologic: alert, motor strength/tone normal, sensory intact, responsive, speech normal Skin: Decubitus/Ulcer - See RN skin exam. : jamaal+ Greg Cabral MD Aug 20, 2019 11:21
[2019-08-20 11:42] LABS: ALANINE AMINOTRANSFERASE 18 U/L (12-78); ALBUMIN 3.2 G/DL (3.4-5.0); ALBUMIN/GLOBULIN RATIO 0.6 (1.0-2.7); ALKALINE PHOSPHATASE 134 U/L (46-116); ANION GAP 18 mmol/L (5-15); ASPARTATE AMINO TRANSFERASE 18 U/L (15-37); BILIRUBIN,TOTAL 0.3 MG/DL (0.2-1.0); BLOOD UREA NITROGEN 77 mg/dL (7-18); CALCIUM 9.1 MG/DL (8.5-10.1); CARBON DIOXIDE 25 MMOL/L (21-32); CHLORIDE 94 MMOL/L (98-107); CREATININE 8.6 MG/DL (0.55-1.30); PHOSPHORUS 5.4 MG/DL (2.5-4.9); POTASSIUM 3.1 MMOL/L (3.5-5.1); SODIUM 137 MMOL/L (136-145)
--- NOTE | 2019-08-20 11:43 | Cardiac Electrophysiology PN ---
Assessment/Plan Assessment/Plan 1. NSTEMI type 2. Low level and flat due to renal failure. On Aspirin. EF 60%. 2. S/P Septic shock. On Abx. Better after NS and Albumin On Midodrine 10 tid 3. ESRD, on HD per Dr. Cole. NPO for new PermCath placement by Dr Mast today 4. VDRF due to COVID pneumonia. S/P Tracheostomy 07/08/19. 5. Atrial fib with RVR. Off Lopressor for Low BP 6. Dysphagia, S/P PEG 07/13/19 7. COPD. 8. Anemia. DW RN Subjective Subjective In SDU on the vent via trach. Off pressors. Fio2 30%. Off isolation. NPO for PermCath placement by Dr Mast today Objective Last 24 Hour Vital Signs Date Time Temp Pulse Resp B/P (MAP) Pulse Ox O2 Delivery O2 Flow Rate FiO2 08/20/19 08:00 30 08/20/19 08:00 98.0 91 26 122/57 (78) 100 08/20/19 08:00 Mechanical Ventilator Mechanical Ventilator 08/20/19 08:00 87 08/20/19 07:10 84 30 30 08/20/19 04:00 98.6 84 30 109/59 (76) 100 08/20/19 04:00 Mechanical Ventilator Mechanical Ventilator 08/20/19 04:00 30 08/20/19 03:28 72 08/20/19 03:05 75 30 30 08/20/19 00:00 Mechanical Ventilator Mechanical Ventilator 08/20/19 00:00 98.2 83 28 127/73 (91) 100 08/20/19 00:00 30 08/19/19 23:31 79 08/19/19 23:07 79 29 30 08/19/19 21:17 74 30 129/73 (91) 08/19/19 20:00 30 08/19/19 20:00 97.9 74 26 142/76 (98) 100 08/19/19 20:00 Mechanical Ventilator Mechanical Ventilator 08/19/19 19:41 73 30 30 08/19/19 19:34 73 08/19/19 16:08 99 08/19/19 16:08 78 27 30 08/19/19 16:00 98.1 77 31 107/60 (76) 100 08/19/19 16:00 Mechanical Ventilator 15.0 Mechanical Ventilator 15.0 08/19/19 16:00 77 08/19/19 16:00 30 08/19/19 15:12 72 28 30 08/19/19 12:00 98.2 86 27 117/64 (81) 99 08/19/19 12:00 Mechanical Ventilator 15.0 Mechanical Ventilator 15.0 08/19/19 12:00 30 08/19/19 12:00 88 08/19/19 11:43 84 33 30 30 Intake and Output 08/19/19 08/20/19 19:00 07:00 Intake Total 680 ml 490 ml Output Total 1 ml 2 ml Balance 679 ml 488 ml Free Water 100 ml Tube Feeding 360 ml 440 ml Other 220 ml 50 ml Stool Total 1 ml 2 ml # Bowel Movements 1 3 Laboratory Tests Test 08/19/19 18:23 08/20/19 11:00 POC Whole Blood Glucose 196 MG/DL (74-106) H White Blood Count Pending Red Blood Count Pending Hemoglobin Pending Hematocrit Pending Mean Corpuscular Volume Pending Mean Corpuscular Hemoglobin Pending Mean Corpuscular Hemoglobin Concent Pending Red Cell Distribution Width Pending Platelet Count Pending Mean Platelet Volume Pending Neutrophils (%) (Auto) Pending Lymphocytes (%) (Auto) Pending Monocytes (%) (Auto) Pending Eosinophils (%) (Auto) Pending Basophils (%) (Auto) Pending Prothrombin Time Pending Prothromb Time International Ratio Pending Activated Partial Thromboplast Time Pending Sodium Level Pending Potassium Level Pending Chloride Level Pending Carbon Dioxide Level Pending Blood Urea Nitrogen Pending Creatinine Pending Estimat Glomerular Filtration Rate Pending Glucose Level Pending Calcium Level Pending Phosphorus Level Pending Magnesium Level Pending Total Bilirubin Pending Aspartate Amino Transf (AST/SGOT) Pending Alanine Aminotransferase (ALT/SGPT) Pending Alkaline Phosphatase Pending C-Reactive Protein, Quantitative Pending Pro-B-Type Natriuretic Peptide Pending Total Protein Pending Albumin Pending Globulin Pending Microbiology Date/Time Source Procedure Growth Status 08/18/19 04:00 Stool Clostridium difficile Toxin Assay - Final Complete 08/19/19 13:00 Catheter Site Catheter Tip Culture - Preliminary NO GROWTH Resulted Objective HEAD AND NECK: No JVD. Tracheostomy in place. Left IJ HD catheter now in place. Right IJ PermCath in place LUNGS: Decreased breath sounds. CARDIOVASCULAR: Regular S1 and S2. Tachycardic. ABDOMEN: Soft. PEG in place EXTREMITIES: No pitting edema. Gio Baker MD Aug 20, 2019 11:43
--- NOTE | 2019-08-20 11:57 | Infectious Diseases Prog Note ---
Assessment/Plan Assessment/Plan IMPRESSION: 1. COVID19 pneumonia Positive: 05/27, 05/31 , 06/05, 06/09 ,06/17, 06/19, 06/23, 06/27, 07/03, 07/15, 07/29 Negative: 07/26, 08/04, 08/05 2. MRSA carrier. 3. Chronic kidney disease , end-stage renal disease. 4. COPD. 5. Hypertension. 6. Anemia. 7. Hypothyroidism. 8. Hyperlipidemia. 9. Major depression. 10. Leukocytosis 11. Hypotension 12. Hepatitis C 13. Hyperuricemia 14. Diarrhea, C difficile negative 15. septic shock 16.Sepsis blood cultures 08/08 & 08/12 : yeast blood culture: Staph Coagulase negative 17. Pneumonia with Staph aureus ( MRSA) 18. Candidal sepsis 19. Diarrhea, C. difficile negative RECOMMENDATIONS: continue Fluconazole & Vancomycin Subjective ROS Limited/Unobtainable: Yes Constitutional: Denies: fever Cardiovascular: Reports: other - Permacath was removed Allergies: Coded Allergies: No Known Allergies (Unverified , 05/28/19) Objective Last 24 Hour Vital Signs Date Time Temp Pulse Resp B/P (MAP) Pulse Ox O2 Delivery O2 Flow Rate FiO2 08/20/19 08:00 30 08/20/19 08:00 98.0 91 26 122/57 (78) 100 08/20/19 08:00 Mechanical Ventilator Mechanical Ventilator 08/20/19 08:00 87 08/20/19 07:10 84 30 30 08/20/19 04:00 98.6 84 30 109/59 (76) 100 08/20/19 04:00 Mechanical Ventilator Mechanical Ventilator 08/20/19 04:00 30 08/20/19 03:28 72 08/20/19 03:05 75 30 30 08/20/19 00:00 Mechanical Ventilator Mechanical Ventilator 08/20/19 00:00 98.2 83 28 127/73 (91) 100 08/20/19 00:00 30 08/19/19 23:31 79 08/19/19 23:07 79 29 30 08/19/19 21:17 74 30 129/73 (91) 08/19/19 20:00 30 08/19/19 20:00 97.9 74 26 142/76 (98) 100 08/19/19 20:00 Mechanical Ventilator Mechanical Ventilator 08/19/19 19:41 73 30 30 08/19/19 19:34 73 08/19/19 16:08 99 08/19/19 16:08 78 27 30 08/19/19 16:00 98.1 77 31 107/60 (76) 100 08/19/19 16:00 Mechanical Ventilator 15.0 Mechanical Ventilator 15.0 08/19/19 16:00 77 08/19/19 16:00 30 08/19/19 15:12 72 28 30 08/19/19 12:00 98.2 86 27 117/64 (81) 99 08/19/19 12:00 Mechanical Ventilator 15.0 Mechanical Ventilator 15.0 08/19/19 12:00 30 08/19/19 12:00 88 Height (Feet): 6 Height (Inches): 1.00 Weight (Pounds): 173 General Appearance: no acute distress HEENT: status post trach Respiratory/Chest: lungs clear, other - on ventilator Cardiovascular: normal rate Abdomen: soft, non tender Extremities: no edema Neurologic/Psychiatric: alert, responsive Microbiology Date/Time Source Procedure Growth Status 08/18/19 04:00 Stool Clostridium difficile Toxin Assay - Final Complete 08/19/19 13:00 Catheter Site Catheter Tip Culture - Preliminary NO GROWTH Resulted Laboratory Tests Test 08/19/19 18:23 08/20/19 11:00 POC Whole Blood Glucose 196 MG/DL (74-106) H White Blood Count Pending Red Blood Count Pending Hemoglobin Pending Hematocrit Pending Mean Corpuscular Volume Pending Mean Corpuscular Hemoglobin Pending Mean Corpuscular Hemoglobin Concent Pending Red Cell Distribution Width Pending Platelet Count Pending Mean Platelet Volume Pending Neutrophils (%) (Auto) Pending Lymphocytes (%) (Auto) Pending Monocytes (%) (Auto) Pending Eosinophils (%) (Auto) Pending Basophils (%) (Auto) Pending Prothrombin Time Pending Prothromb Time International Ratio Pending Activated Partial Thromboplast Time Pending Sodium Level Pending Potassium Level Pending Chloride Level Pending Carbon Dioxide Level Pending Blood Urea Nitrogen Pending Creatinine Pending Estimat Glomerular Filtration Rate Pending Glucose Level Pending Calcium Level Pending Phosphorus Level Pending Magnesium Level Pending Total Bilirubin Pending Aspartate Amino Transf (AST/SGOT) Pending Alanine Aminotransferase (ALT/SGPT) Pending Alkaline Phosphatase Pending C-Reactive Protein, Quantitative Pending Pro-B-Type Natriuretic Peptide Pending Total Protein Pending Albumin Pending Globulin Pending Current Medications Medications (Trade) Dose Ordered Sig/Anthony Route PRN Reason Start Time Stop Time Status Last Admin Dose Admin Acetaminophen (Tylenol) 650 mg Q4H PRN NG For Pain 08/04/19 21:38 09/03/19 21:37 08/18/19 05:21 Acetaminophen (Tylenol) 650 mg Q4H PRN NG Temp >100.5 08/15/19 13:30 09/08/19 08:29 Chlorhexidine Gluconate (Michelle-Hex 2%) 1 applic DAILY@2000 TOPIC 08/05/19 20:00 09/05/19 19:59 08/18/19 20:12 Dextrose (Dextrose 50%) 25 ml Q30M PRN IV Hypoglycemia 08/04/19 22:00 09/18/19 19:29 Dextrose (Dextrose 50%) 50 ml Q30M PRN IV Hypoglycemia 08/04/19 22:00 09/18/19 19:29 Diphenoxylate HCl/ Atropine (Lomotil) 2.5 mg BID ORAL 08/18/19 18:00 09/17/19 17:59 08/20/19 08:30 Enoxaparin Sodium (Lovenox) 30 mg DAILY SUBQ 08/05/19 09:00 08/27/19 08:59 08/20/19 08:32 Epoetin Aftab (Epoetin Aftab(ESRD on dialysis)) 10,000 unit FRI-FRI-FRI SUBQ 08/11/19 21:00 11/09/19 20:59 08/18/19 20:55 Fluconazole (Diflucan) 200 mg DAILY NG 08/13/19 10:24 08/24/19 10:23 08/20/19 08:30 Haloperidol Lactate 5 mg/ Dextrose 56 ml @ 224 mls/hr Q6H PRN IVPB Agitation 08/04/19 21:38 09/18/19 21:37 08/19/19 02:26 Hydralazine HCl (Apresoline) 10 mg Q4H PRN IV Blood pressure over 160 systol 08/04/19 21:39 11/02/19 21:38 Insulin Aspart (NovoLOG) EVERY 6 HOURS SUBQ 08/05/19 00:00 09/19/19 00:00 08/20/19 05:31 Loperamide HCl (Imodium) 2 mg Q6H NG 08/18/19 14:00 09/15/19 13:59 08/20/19 08:31 Midodrine (Pro-Amatine) 10 mg THREE TIMES A DAY NG 08/15/19 18:00 11/13/19 17:59 08/19/19 18:24 Pantoprazole (Protonix) 40 mg DAILY IVP 08/05/19 09:00 08/26/19 08:59 08/20/19 08:30 Vancomycin HCl (Vanco pharmacy to dose) 1 ea DAILY PRN MISC Per rx protocol 08/15/19 08:45 09/14/19 08:44 Ted Leyva MD Aug 20, 2019 11:57
[2019-08-20 12:00] VITALS: BP 103/60
--- NOTE | 2019-08-20 12:37 | Nephrology Progress Note ---
Assessment/Plan Problem List: (1) CASSANDRA (acute kidney injury) (2) Anemia in chronic kidney disease (CKD) (3) HTN (hypertension) (4) COVID-19 Assessment Acute renal failure most likely superimposed on chronic kidney disease Suspected COVID-19 virus infection Possible Pneumonia, lymphopenia, elevated AST Cardiomegaly, possible CHF COPD Hypertension Anemia, most likely related to chronic kidney disease Plan August 19: Permacath resolved. Due for temporary non-tunneled dialysis access. White blood cells are up to over 14,000. Will dialyze as needed. August 18: Discussed with ID and general surgery. Will remove the permacath which is thought to be infected by IR today. Will monitor renal parameters. Will obtain surveillance cultures tomorrow. Will attempt to put a temporary dialysis access in 48 to 72 hours for dialysis purposes. August 17: Last dialysis August 15, no blood work done today yet. Will reassess if dialysis should be continued. Continue per current management. We will make arrangement to DC permacath and reinsert a new one via general surgery and or interventional radiology August 16: Albumin for low BP. Continue to monitor renal parameters. August 15: Due for dialysis today. Remains borderline low. No ultrafiltration during dialysis. Discussed with SHANIQUE Macdonald. August 14: No labs done today. Patient hypotensive. Normal saline and albumin bolus given. Midodrin started. Will check lab tomorrow. August 13: Lab reviewed. Last dialysis yesterday. Next dialysis August 15. Potassium and phosphorus supplement given. Continue per consultants. August 12: No can panel done today. Due for dialysis today. Continue per consultants. August 11: Patient labs reviewed. Will order dialysis tomorrow. Continue per consultants. August 10: Patient was dialyzed yesterday. Today's labs checked. Stable from renal standpoint to view August 09: Patient scheduled for hemodialysis today. Will check labs tomorrow. August 08: Lab reviewed. Hemodialysis scheduled for tomorrow. August 07: Dialyzed yesterday. No labs drawn today. Will check labs tomorrow. Continue per consultants. August 06: Patient on dialysis now. Discussed with dialysis nurse. Slight catheter malfunction persist. August 05: Labs reviewed. Dialysis scheduled for tomorrow. Continue per consultants. August 04: No labs done today. Dialyzed yesterday. Check labs tomorrow. Continue per consultants. August 03: Lab reviewed. Due for dialysis today. White blood cell 17,500. August 02: Lab reviewed. Low phosphorus replaced. Hemodialysis ordered for tomorrow. White blood cells over 18,000. August 01: Labs reviewed. Potassium replacement ordered. Remains full code on ventilator via trach. Continue per consultants. July 31: Dialyzed yesterday. No can panel today. Remains full code. Remains on ventilator. Being fed through PEG. Continue per consultants. July 30: Patient due for dialysis today. Labs are reviewed. Remains full code. Status post trach to ventilator. Status post PEG. July 29: Patient dialyzed yesterday. Due for dialysis tomorrow. Remains in ICU. Full code. Status post trach tube to ventilator. Status post PEG. July 28: Due for dialysis today. Labs reviewed. Full code. Patient trached and vented. July 27: Last COVID test negative. COVID test will be repeated tomorrow. Will order dialysis tomorrow. Remains full code. Medication list and labs reviewed. July 26: No labs done today. Dialysis done yesterday. Will check lab tomorrow. Dialysis as needed. July 25: Lab reviewed. Dialysis today. Discussed with RN. July 24: Lab reviewed. Do dialysis tomorrow. Discussed with RN. July 23: Lab reviewed. Dialyzed yesterday. Discussed with RN. Remains full code. Next dialysis July 25. Will check labs tomorrow. July 22: Labs reviewed. Due for dialysis today. Discussed with RN. Watch borderline low blood pressure. Discussed with dialysis nurse. July 21: Today's lab reviewed. Will arrange for dialysis tomorrow. Discussed with RN. Aim to keep the blood pressure above 100 systolic. Continue per consultants. July 20: Patient was dialyzed yesterday. Could not ultrafiltrate much due to low blood pressure. Discussed with SHANIQUE Dick today. No labs drawn today. Continue per consultants. July 19: Due for dialysis today. Discussed with SHANIQUE Dick. Continue per consultants. July 18: Dialyzed July 16. Will order dialysis tomorrow July 19. Continues to be on ventilator through trach. No labs done today. Continue per consultants. July 17: Dialyzed yesterday. Stable from renal standpoint of view. Remains full code. Status post trach on vent. Status post PEG. Continue per consultants. July 16: Dialysis today. Will resume Midodrin to prevent hypotension. Patient remains full code. July 15: Dialyzed yesterday, due for dialysis tomorrow. Labs and medication list reviewed. Continue per consultants. Patient remains full code. COVID-19 detected again. July 14: Patient currently on dialysis. This is continuation of dialysis from yesterday as yesterday's dialysis was cut short due to catheter malfunction. Labs and medication reviewed. Continue per consultants. July 13: Patient currently on hemodialysis. The dialysis catheter which is a intrajugular Kamlesh has poor flow. Will try TPA. Continue per consultants. July 12: Due for PEG today. Due for dialysis tomorrow. Continue per consultants. Discussed with RN. July 11: Plan for dialysis today. Discussed with RN. Data reviewed. July 10: Plan for dialysis tomorrow July 11. Waiting for consent to proceed with PEG. Continue per consultants. Medication reviewed. Labs reviewed. Discussed with RN. July 09: Dialyzed yesterday. Labs reviewed. Medication reviewed. Next hemodialysis July 11. July 08: Patient has tracheostomy now. Connected to ventilator. Due for dialysis today. Continue per consultants. Discussed with SHANIQUE Romero. July 07: Patient is due for tracheostomy today. Patient was last dialyzed July 05. Will order dialysis for tomorrow. July 06: Patient is intubated on ventilator however the plan is to extubate today. Patient was dialysis yesterday July 05. The dialysis time was cut short due to patient's respiratory distress. Only 1 L was removed during dialysis yesterday. Today's lab reviewed. Continue per consultants. Will arrange for dialysis as needed. July 05: Patient due for dialysis today. Remains intubated. Will schedule permacath placement in a.m. blood cultures on July 04 are negative. July 04: Patient was dialyzed yesterday. Due for dialysis tomorrow. Continues to be intubated. After tomorrow's dialysis will order a permacath. July 03: Dialysis is about to be started now Continues to be intubated Will plan to remove the femoral dialysis catheter and exchanged for a new temporary catheter per ID recommendation We will check surveillance blood culture tomorrow July 02: Patient was dialyzed yesterday and due for dialysis tomorrow Stable from renal standpoint W on dialysis Continue per consultants, weaning....... etc. July 01: Dialysis today Other status unchanged June 30: Due for dialysis tomorrow Remains intubated on ventilator Labs and medication reviewed Discussed with RN Stable from renal standpoint of view June 29: Dialyzed yesterday Due for dialysis tomorrow Stable from renal standpoint to view Keeps failing weaning process June 28: Patient due for dialysis today Stable from renal standpoint to view Continue per consultants June 27: Labs reviewed Due due for dialysis June 28 Discussed with SHANIQUE Dick Continue per consultants Remains intubated on ventilator June 26 Labs reviewed Dialyzed yesterday Started on weaning today Continue to monitor renal parameters June 25: On dialysis now Potassium supplement implemented Continue per consultants Next dialysis June 27June 15: Status unchanged Dialyzed yesterday will dialyze again tomorrow Potassium supplements given Discussed with RN June 23: Due dialysis today Status: Remains intubated on ventilator June 22: Status unchanged Dialyzed yesterday and duefordialysistomorrow Serum sodium stable today June 21 Remains intubated on ventilator Due dialysis today Emphasized high sodium bath for dialysis June 20: Remains intubated on ventilator Dialyzed June 19 next dialysis June 21 Serum sodium 128, will give 250 cc 3% saline Remains full code Discussed with RN Iron panel ordered June 19: Discussed with RN. Patient due for dialysis today. Continue pulmonary support. Remains full code. June 18: Patient dialyzed yesterday June 17 Serum sodium improved but still low Arrange for dialysis tomorrow June 19 Continue per consultants June 17: Due for dialysis today Today's lab reviewed, low serum sodium noted, Emphasized on high sodium bath to dialysis nurse Discussed with SHANIQUE Yuen June 16: Dialyzed yesterday Remains intubated Labs reviewed, serum sodium 131 Plan to dialyze tomorrow June 17 with high sodium bath Discussed with SHANIQUE Yuen June 6: Due for dialysis today Labs reviewed Discussed with RN Transfuse 1 unit of packed RBCs today for low hemoglobin of 7.1 June 5: Blood pressure well maintained Receive dialysis June 13 next hemodialysis June 15June 4: Discussed with RN in ICU Patient did not receive proper dialysis yesterday due to dialysis catheter malfunction Catheter to be adjusted today and dialyzed to be resumed today Continue per consultants Positive for COVID 28 June 2: Patient now intubated on mechanical ventilation Discussed with SHANIQUE Yuen, today June 12 Patient received dialysis yesterday June 10 next hemodialysis June 12 Blood pressure better maintained Today's labs reviewed Continue per consultants Previously patient received dialysis last evening June 05, next dialysis June 07 which was incomplete due to patient's hypotension Will start on midodrine for blood pressure support. Meanwhile continue other pressors as needed Previously Patient is doing poorly, septic, white blood cells are rising, Hypotension somewhat improved We will keep n.p.o. , NG tube for medications, and change medication to IV as needed Patient remains full code Monitor vancomycin level Previously: Patient pulled out his femoral catheter yesterday June 03 which was reinserted by Dr. Mast Patient scheduled for dialysis again June 04, which again was not done due to dialysis nurse citing catheter malfunction Meanwhile continue management per ID, pulmonary , and psych. Meanwhile white blood cell count is rising. Patient blood pressure borderline low. Will check ABG Previously May 31 : I believe patient need dialysis treatment He however needs to competency assessment if can make decisions or not I will communicate with Dr. Mulligan Previously: Per pulmonary and ID advice Adjust blood pressure medication Renal diet Anemia work-up 2D echocardiogram refused Kidney ultrasound refused Jules catheter Urine studies Per orders Subjective ROS Limited/Unobtainable: Yes Objective Objective Last 24 Hour Vital Signs Date Time Temp Pulse Resp B/P (MAP) Pulse Ox O2 Delivery O2 Flow Rate FiO2 08/20/19 11:10 87 29 30 08/20/19 08:00 30 08/20/19 08:00 98.0 91 26 122/57 (78) 100 08/20/19 08:00 Mechanical Ventilator Mechanical Ventilator 08/20/19 08:00 87 08/20/19 07:10 84 30 30 08/20/19 04:00 98.6 84 30 109/59 (76) 100 08/20/19 04:00 Mechanical Ventilator Mechanical Ventilator 08/20/19 04:00 30 08/20/19 03:28 72 08/20/19 03:05 75 30 30 08/20/19 00:00 Mechanical Ventilator Mechanical Ventilator 08/20/19 00:00 98.2 83 28 127/73 (91) 100 08/20/19 00:00 30 08/19/19 23:31 79 08/19/19 23:07 79 29 30 08/19/19 21:17 74 30 129/73 (91) 08/19/19 20:00 30 08/19/19 20:00 97.9 74 26 142/76 (98) 100 08/19/19 20:00 Mechanical Ventilator Mechanical Ventilator 08/19/19 19:41 73 30 30 08/19/19 19:34 73 08/19/19 16:08 99 08/19/19 16:08 78 27 30 08/19/19 16:00 98.1 77 31 107/60 (76) 100 08/19/19 16:00 Mechanical Ventilator 15.0 Mechanical Ventilator 15.0 08/19/19 16:00 77 08/19/19 16:00 30 08/19/19 15:12 72 28 30 Intake and Output 08/19/19 08/20/19 19:00 07:00 Intake Total 680 ml 490 ml Output Total 1 ml 2 ml Balance 679 ml 488 ml Free Water 100 ml Tube Feeding 360 ml 440 ml Other 220 ml 50 ml Stool Total 1 ml 2 ml # Bowel Movements 1 3 Laboratory Tests 08/19/19 18:23: POC Whole Blood Glucose 196H 08/20/19 11:00: White Blood Count 14.9H, Red Blood Count 3.51L, Hemoglobin 9.8L, Hematocrit 32.9L, Mean Corpuscular Volume 94, Mean Corpuscular Hemoglobin 27.8, Mean Corpuscular Hemoglobin Concent 29.7L, Red Cell Distribution Width 18.5H, Platelet Count 419, Mean Platelet Volume 7.3, Neutrophils (%) (Auto) 75.8H, Lymphocytes (%) (Auto) 11.6L, Monocytes (%) (Auto) 7.6, Eosinophils (%) (Auto) 4.1H, Basophils (%) (Auto) 0.9, Prothrombin Time 11.2, Prothromb Time International Ratio 1.0, Activated Partial Thromboplast Time 27, Sodium Level 137, Potassium Level 3.1L, Chloride Level 94L, Carbon Dioxide Level 25, Anion Gap 18H, Blood Urea Nitrogen 77H, Creatinine 8.6#H, Estimat Glomerular Filtration Rate 6.2, Glucose Level 196H, Calcium Level 9.1, Phosphorus Level 5.4H, Magnesium Level 2.3, Total Bilirubin 0.3, Aspartate Amino Transf (AST/SGOT ) 18, Alanine Aminotransferase (ALT/SGPT) 18, Alkaline Phosphatase 134H, C- Reactive Protein, Quantitative 10.0H, Pro-B-Type Natriuretic Peptide 44392K, Total Protein 8.6H, Albumin 3.2L, Globulin 5.4, Albumin/Globulin Ratio 0.6L 08/20/19 11:50: POC Whole Blood Glucose [Pending] Height (Feet): 6 Height (Inches): 1.00 Weight (Pounds): 173 General Appearance: no apparent distress, lethargic EENT: other - Trach and vent Cardiovascular: tachycardia Respiratory/Chest: decreased breath sounds Abdomen: distended, other - PEG in place Objective No change Mic Cole MD Aug 20, 2019 12:37
[2019-08-20] MEDS ORDERED: Sodium Chloride for KCL Premix x 2hrs IV SCH (13:00)
[2019-08-20] MEDS ORDERED: Lidocaine 1% Plain 30 ml INJ PRN (13:45)
[2019-08-20] MEDS ORDERED: Heparin1,000 units/500ml Premix(Conc:2 units/ml) IV PRN ×2 (13:45→14:15)
[2019-08-20 16:00] VITALS: BP 131/79
[2019-08-20 20:00] VITALS: BP 103/63
[2019-08-20] MEDS: Epoetin Alfa-EPBX(ESRD on dialysis)10,000 unit/ml vial SUBQ SCH (20:29)
--- NOTE | 2019-08-20 23:50 | Pulmonolgy Critical Care Note ---
Critical Care - Asmt/Plan Assessment/Plan: Pulmonary Progress Note HPI: Patient is a 68 year old man, jail resident, admitted c/o shortness of breath, cough, noted to have Covid 19 Pneumonia, Respiratory Failure Remains on Ventilator, CXR infiltrates stable 08/17 Anemia CKD on HD, Intemittent hypotension, prn albumin, beta sonia being held, on Mitodrine, will need eventual placement, second consecutive repeat COVID19 test negative Preserved EF FIO2 30%, P5, adequate O2 sats, remains on ACVC, tolerating CPAP PS 8, s/p Tracheostomy previously, sp PEG, sp HD line removal- fungemia ID following MRSA sputum Reviewed earlier Past Medical History: COPD, CKD, Hypertension, Anemia Allergies: No Known Allergies Improving Pulmonary Status on HD Physical Exam Vital Signs Noted Stable on ventilator Chronically ill appearing HEENT: Trach CDI Chest: CTAB Hreart: HS1, HS2, RRR Abdomen: SNTND, Gtube Extremities: Wasted, no edema [employer]:No focal signs Impression: COVID-19 virus infection - now Covid negative Pneumonia Respiratory failure on ventilator, wean as tolerated CKD - on HD Previous NSTEMI Hypotension resolved Cardiomegaly Fungemia MRSA sputum COPD Chronic Kidney Disease - HD H/o Hypertension Anemia Plan: trach care as is Antibiotics per ID HD per renal monitor vitals AC - wean as tolerated anxiolytics if needed 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 PRN Monitor lab data nutrition feeds Hemodialysis per Renal, currently on line holiday impression, plan, and exam edited and reviewed in detail care discussed with RN Laboratory Tests Noted: CXR: No acute changes Subjective ROS Limited/Unobtainable: Yes Allergies: Coded Allergies: No Known Allergies (Unverified , 05/28/19) Critical Care - Objective Last 24 Hour Vital Signs Date Time Temp Pulse Resp B/P (MAP) Pulse Ox O2 Delivery O2 Flow Rate FiO2 08/20/19 22:49 80 28 30 08/20/19 20:00 Mechanical Ventilator Mechanical Ventilator 08/20/19 20:00 78 08/20/19 20:00 98.1 80 30 103/63 (76) 100 08/20/19 20:00 30 08/20/19 18:59 105 28 30 08/20/19 16:00 98.2 97 18 131/79 (96) 100 08/20/19 16:00 104 08/20/19 16:00 Mechanical Ventilator Mechanical Ventilator 08/20/19 16:00 30 08/20/19 15:15 100 08/20/19 15:15 107 32 30 08/20/19 15:13 30 08/20/19 12:15 30 08/20/19 12:15 89 26 30 08/20/19 12:00 88 08/20/19 12:00 Mechanical Ventilator Mechanical Ventilator 08/20/19 12:00 97.9 93 21 103/60 (74) 100 08/20/19 11:10 87 29 30 08/20/19 08:00 30 08/20/19 08:00 98.0 91 26 122/57 (78) 100 08/20/19 08:00 Mechanical Ventilator Mechanical Ventilator 08/20/19 08:00 87 08/20/19 07:10 84 30 30 08/20/19 04:00 98.6 84 30 109/59 (76) 100 08/20/19 04:00 Mechanical Ventilator Mechanical Ventilator 08/20/19 04:00 30 08/20/19 03:28 72 08/20/19 03:05 75 30 30 08/20/19 00:00 Mechanical Ventilator Mechanical Ventilator 08/20/19 00:00 98.2 83 28 127/73 (91) 100 08/20/19 00:00 30 Micro: Microbiology Date/Time Source Procedure Growth Status 08/18/19 04:00 Stool Clostridium difficile Toxin Assay - Final Complete 08/19/19 13:00 Catheter Site Catheter Tip Culture - Preliminary NO GROWTH Resulted Accucheck: 193 Critical Care - Subjective ROS Limited/Unobtainable: Yes Condition: stable FI02: 30 Vent Support Breath Rate: 26 Vent Support Mode: AC Vent Tidal Volume: 500 Sputum Amount: None PEEP: 5.0 PIP: 29 Tube Feeding Amount: 40 I&O: Intake and Output 08/19/19 08/20/19 19:00 07:00 Intake Total 680 ml 530 ml Output Total 1 ml 2 ml Balance 679 ml 528 ml Free Water 100 ml Tube Feeding 360 ml 480 ml Other 220 ml 50 ml Stool Total 1 ml 2 ml # Bowel Movements 1 3 ET-Tube: 7.5 ET Position: 24 Arturo Mckeon MD Aug 20, 2019 23:50
[2019-08-21] VITALS: BP 120/65
[2019-08-21 04:00] VITALS: BP 122/76
[2019-08-21] MEDS: NovoLOG Insulin Flexpen SUBQ SCH ×3 (05:30→17:32)
--- NOTE | 2019-08-21 06:30 | General Progress Note ---
Assessment/Plan Status: progressing, unchanged, deteriorating Assessment/Plan: 1. Diabetes. 2. Hypertension. 3. Coronary artery disease. 4. COPD. 5. Psychiatric disorder with schizophrenia. 6. History of hepatitis C. 7. HLP. 8. Chronic kidney disease, now with acute renal failure. 9. Anemia. 10. Hypothyroidism. 11. Spinal stenosis. 12. Constipation. 13. GERD. 14. COVID positive HD per nephrology fu labs s/p PEG GTF TF at 40 cc imodium lomotil neg C.diff off reglan monitor for residuals Subjective ROS Limited/Unobtainable: No Allergies: Coded Allergies: No Known Allergies (Unverified , 05/28/19) Objective Last 24 Hour Vital Signs Date Time Temp Pulse Resp B/P (MAP) Pulse Ox O2 Delivery O2 Flow Rate FiO2 08/21/19 04:00 30 08/21/19 04:00 97.5 85 25 122/76 (91) 100 08/21/19 04:00 Mechanical Ventilator Mechanical Ventilator 08/21/19 03:28 76 08/21/19 02:45 80 29 30 08/21/19 00:00 98.3 83 30 120/65 (83) 100 08/21/19 00:00 Mechanical Ventilator Mechanical Ventilator 08/21/19 00:00 30 08/20/19 23:40 83 08/20/19 22:49 80 28 30 08/20/19 20:00 Mechanical Ventilator Mechanical Ventilator 08/20/19 20:00 78 08/20/19 20:00 98.1 80 30 103/63 (76) 100 08/20/19 20:00 30 08/20/19 18:59 105 28 30 08/20/19 16:00 98.2 97 18 131/79 (96) 100 08/20/19 16:00 104 08/20/19 16:00 Mechanical Ventilator Mechanical Ventilator 08/20/19 16:00 30 08/20/19 15:15 100 08/20/19 15:15 107 32 30 08/20/19 15:13 30 08/20/19 12:15 30 08/20/19 12:15 89 26 30 08/20/19 12:00 88 08/20/19 12:00 Mechanical Ventilator Mechanical Ventilator 08/20/19 12:00 97.9 93 21 103/60 (74) 100 08/20/19 11:10 87 29 30 08/20/19 08:00 30 08/20/19 08:00 98.0 91 26 122/57 (78) 100 08/20/19 08:00 Mechanical Ventilator Mechanical Ventilator 08/20/19 08:00 87 08/20/19 07:10 84 30 30 Intake and Output 08/20/19 08/21/19 18:59 06:59 Intake Total 1160 ml 570 ml Balance 1160 ml 570 ml Free Water 200 ml 90 ml IV Total 400 ml Tube Feeding 560 ml 480 ml # Voids 1 # Bowel Movements 9 6 Laboratory Tests 08/20/19 11:00: White Blood Count 14.9H, Red Blood Count 3.51L, Hemoglobin 9.8L, Hematocrit 32.9L, Mean Corpuscular Volume 94, Mean Corpuscular Hemoglobin 27.8, Mean Corpuscular Hemoglobin Concent 29.7L, Red Cell Distribution Width 18.5H, Platelet Count 419, Mean Platelet Volume 7.3, Neutrophils (%) (Auto) 75.8H, Lymphocytes (%) (Auto) 11.6L, Monocytes (%) (Auto) 7.6, Eosinophils (%) (Auto) 4.1H, Basophils (%) (Auto) 0.9, Prothrombin Time 11.2, Prothromb Time International Ratio 1.0, Activated Partial Thromboplast Time 27, Sodium Level 137, Potassium Level 3.1L, Chloride Level 94L, Carbon Dioxide Level 25, Anion Gap 18H, Blood Urea Nitrogen 77H, Creatinine 8.6#H, Estimat Glomerular Filtration Rate 6.2, Glucose Level 196H, Calcium Level 9.1, Phosphorus Level 5.4H, Magnesium Level 2.3, Total Bilirubin 0.3, Aspartate Amino Transf (AST/SGOT ) 18, Alanine Aminotransferase (ALT/SGPT) 18, Alkaline Phosphatase 134H, C- Reactive Protein, Quantitative 10.0H, Pro-B-Type Natriuretic Peptide 92194Z, Total Protein 8.6H, Albumin 3.2L, Globulin 5.4, Albumin/Globulin Ratio 0.6L 08/20/19 11:50: POC Whole Blood Glucose [Pending] 08/20/19 16:42: POC Whole Blood Glucose 204H 08/20/19 23:42: POC Whole Blood Glucose [Pending] 08/21/19 05:27: POC Whole Blood Glucose [Pending] Height (Feet): 6 Height (Inches): 1.00 Weight (Pounds): 173 General Appearance: no apparent distress EENT: PERRL/EOMI Neck: supple Cardiovascular: normal rate Respiratory/Chest: decreased breath sounds Abdomen: normal bowel sounds, non tender, soft Extremities: non-tender Marito Ramires MD Aug 21, 2019 06:30
[2019-08-21 07:13] LABS: BASOPHILS % (AUTO) 1.3 % (0.0-2.0); EOSINOPHILS % (AUTO) 4.5 % (0.0-3.0); HEMATOCRIT 30.6 % (42.0-52.0); HEMOGLOBIN 9.3 G/DL (14.2-18.0); LYMPHOCYTES % (AUTO) 10.5 % (20.0-45.0); MEAN CORPUSCULAR VOLUME 93 FL (80-99); MONOCYTES % (AUTO) 8.3 % (1.0-10.0); NEUTROPHILS % (AUTO) 75.4 % (45.0-75.0); PLATELET COUNT 438 K/UL (150-450); RED BLOOD COUNT 3.28 M/UL (4.70-6.10); RED CELL DISTRIBUTION WIDTH 18.2 % (11.6-14.8); WHITE BLOOD COUNT 12.5 K/UL (4.8-10.8)
[2019-08-21 07:51] LABS: ALANINE AMINOTRANSFERASE 14 U/L (12-78); ALBUMIN 2.8 G/DL (3.4-5.0); ALBUMIN/GLOBULIN RATIO 0.5 (1.0-2.7); ALKALINE PHOSPHATASE 126 U/L (46-116); ANION GAP 18 mmol/L (5-15); ASPARTATE AMINO TRANSFERASE 20 U/L (15-37); BILIRUBIN,TOTAL 0.4 MG/DL (0.2-1.0); BLOOD UREA NITROGEN 84 mg/dL (7-18); CALCIUM 9.4 MG/DL (8.5-10.1); CARBON DIOXIDE 21 MMOL/L (21-32); CHLORIDE 94 MMOL/L (98-107); CREATININE 8.9 MG/DL (0.55-1.30); POTASSIUM 3.4 MMOL/L (3.5-5.1); SODIUM 133 MMOL/L (136-145)
[2019-08-21 07:57] LABS: PHOSPHORUS 5.6 MG/DL (2.5-4.9)
[2019-08-21 08:00] VITALS: BP 121/74
[2019-08-21] MEDS ORDERED: Sodium Chloride for KCL Premix X 1hr IV SCH (08:30)
[2019-08-21] MEDS: Fluconazole 100mg tab NG SCH (08:40)
[2019-08-21] MEDS: Lomotil 2.5mg tab ORAL SCH ×2 (08:40→17:23)
[2019-08-21] MEDS: Pantoprazole Inj IVP SCH (08:40)
[2019-08-21] MEDS: Midodrine 10mg tab NG SCH ×3 (08:41→17:32)
[2019-08-21] MEDS: Enoxaparin 30mg Inj SUBQ SCH (08:42)
[2019-08-21 12:00] VITALS: BP 118/69
--- NOTE | 2019-08-21 12:14 | General Progress Note ---
Assessment/Plan Problem List: (1) Suspected COVID-19 virus infection ICD Codes: R68.89 - Other general symptoms and signs SNOMED: 005286514 (2) Anemia ICD Codes: D64.9 - Anemia, unspecified SNOMED: 078210980 (3) Renal failure ICD Codes: N19 - Unspecified kidney failure SNOMED: 77752518 Status: unchanged Assessment/Plan: vent abx neph f/u cbc bmp am Subjective Constitutional: Reports: weakness Allergies: Coded Allergies: No Known Allergies (Unverified , 05/28/19) All Systems: reviewed and negative except above Subjective trach vent altered Objective Last 24 Hour Vital Signs Date Time Temp Pulse Resp B/P (MAP) Pulse Ox O2 Delivery O2 Flow Rate FiO2 08/21/19 11:11 100 08/21/19 11:06 69 34 30 08/21/19 08:00 Mechanical Ventilator Mechanical Ventilator 08/21/19 08:00 80 08/21/19 08:00 30 08/21/19 08:00 98.4 87 30 121/74 (90) 100 08/21/19 07:41 85 31 30 08/21/19 04:00 30 08/21/19 04:00 97.5 85 25 122/76 (91) 100 08/21/19 04:00 Mechanical Ventilator Mechanical Ventilator 08/21/19 03:28 76 08/21/19 02:45 80 29 30 08/21/19 00:00 98.3 83 30 120/65 (83) 100 08/21/19 00:00 Mechanical Ventilator Mechanical Ventilator 08/21/19 00:00 30 08/20/19 23:40 83 08/20/19 22:49 80 28 30 08/20/19 20:00 Mechanical Ventilator Mechanical Ventilator 08/20/19 20:00 78 08/20/19 20:00 98.1 80 30 103/63 (76) 100 08/20/19 20:00 30 08/20/19 18:59 105 28 30 08/20/19 16:00 98.2 97 18 131/79 (96) 100 08/20/19 16:00 104 08/20/19 16:00 Mechanical Ventilator Mechanical Ventilator 08/20/19 16:00 30 08/20/19 15:15 100 08/20/19 15:15 107 32 30 08/20/19 15:13 30 08/20/19 12:15 30 08/20/19 12:15 89 26 30 Intake and Output 08/20/19 08/21/19 19:00 07:00 Intake Total 1190 ml 540 ml Balance 1190 ml 540 ml Free Water 230 ml 60 ml IV Total 400 ml Tube Feeding 560 ml 480 ml # Voids 1 # Bowel Movements 9 6 Laboratory Tests 08/20/19 16:42: POC Whole Blood Glucose 204H 08/20/19 23:42: POC Whole Blood Glucose [Pending] 08/21/19 05:27: POC Whole Blood Glucose [Pending] 08/21/19 05:55: White Blood Count 12.5H, Red Blood Count 3.28L, Hemoglobin 9.3L, Hematocrit 30.6L, Mean Corpuscular Volume 93, Mean Corpuscular Hemoglobin 28.3, Mean Corpuscular Hemoglobin Concent 30.3L, Red Cell Distribution Width 18.2H, Platelet Count 438, Mean Platelet Volume 6.6, Neutrophils (%) (Auto) 75.4H, Lymphocytes (%) (Auto) 10.5L, Monocytes (%) (Auto) 8.3, Eosinophils (%) (Auto) 4.5H, Basophils (%) (Auto) 1.3, Sodium Level 133L, Potassium Level 3.4L, Chloride Level 94L, Carbon Dioxide Level 21, Anion Gap 18H, Blood Urea Nitrogen 84H, Creatinine 8.9H, Estimat Glomerular Filtration Rate 6.0, Glucose Level 174H , Calcium Level 9.4, Phosphorus Level 5.6H, Magnesium Level 2.2, Total Bilirubin 0.4, Aspartate Amino Transf (AST/SGOT) 20, Alanine Aminotransferase ( ALT/SGPT) 14, Alkaline Phosphatase 126H, Total Protein 8.4H, Albumin 2.8L, Globulin 5.6, Albumin/Globulin Ratio 0.5L 08/21/19 11:42: POC Whole Blood Glucose [Pending] Height (Feet): 6 Height (Inches): 1.00 Weight (Pounds): 172 General Appearance: lethargic EENT: normal ENT inspection Neck: normal alignment Cardiovascular: normal rate, regular rhythm Respiratory/Chest: no respiratory distress, no accessory muscle use Extremities: normal inspection Skin: normal pigmentation Gustavo Ybarra DO Aug 21, 2019 12:14
--- NOTE | 2019-08-21 13:36 | Nephrology Progress Note ---
Assessment/Plan Problem List: (1) CASSANDRA (acute kidney injury) (2) Anemia in chronic kidney disease (CKD) (3) HTN (hypertension) (4) COVID-19 Assessment Acute renal failure most likely superimposed on chronic kidney disease Suspected COVID-19 virus infection Possible Pneumonia, lymphopenia, elevated AST Cardiomegaly, possible CHF COPD Hypertension Anemia, most likely related to chronic kidney disease Plan August 20: Patient due for insertion of a temporary dialysis catheter. I ordered dialysis for tomorrow August 21. Continue per consultants. Discussed with Donna " August 19: Permacath discontinued. Due for temporary non-tunneled dialysis access. White blood cells are up to over 14,000. Will dialyze as needed. August 18: Discussed with ID and general surgery. Will remove the permacath which is thought to be infected by IR today. Will monitor renal parameters. Will obtain surveillance cultures tomorrow. Will attempt to put a temporary dialysis access in 48 to 72 hours for dialysis purposes. August 17: Last dialysis August 15, no blood work done today yet. Will reassess if dialysis should be continued. Continue per current management. We will make arrangement to DC permacath and reinsert a new one via general surgery and or interventional radiology August 16: Albumin for low BP. Continue to monitor renal parameters. August 15: Due for dialysis today. Remains borderline low. No ultrafiltration during dialysis. Discussed with SHANIQUE Macdonald. August 14: No labs done today. Patient hypotensive. Normal saline and albumin bolus given. Midodrin started. Will check lab tomorrow. August 13: Lab reviewed. Last dialysis yesterday. Next dialysis August 15. Potassium and phosphorus supplement given. Continue per consultants. August 12: No can panel done today. Due for dialysis today. Continue per consultants. August 11: Patient labs reviewed. Will order dialysis tomorrow. Continue per consultants. August 10: Patient was dialyzed yesterday. Today's labs checked. Stable from renal standpoint to view August 09: Patient scheduled for hemodialysis today. Will check labs tomorrow. August 08: Lab reviewed. Hemodialysis scheduled for tomorrow. August 07: Dialyzed yesterday. No labs drawn today. Will check labs tomorrow. Continue per consultants. August 06: Patient on dialysis now. Discussed with dialysis nurse. Slight catheter malfunction persist. August 05: Labs reviewed. Dialysis scheduled for tomorrow. Continue per consultants. August 04: No labs done today. Dialyzed yesterday. Check labs tomorrow. Continue per consultants. August 03: Lab reviewed. Due for dialysis today. White blood cell 17,500. August 02: Lab reviewed. Low phosphorus replaced. Hemodialysis ordered for tomorrow. White blood cells over 18,000. August 01: Labs reviewed. Potassium replacement ordered. Remains full code on ventilator via trach. Continue per consultants. July 31: Dialyzed yesterday. No can panel today. Remains full code. Remains on ventilator. Being fed through PEG. Continue per consultants. July 30: Patient due for dialysis today. Labs are reviewed. Remains full code. Status post trach to ventilator. Status post PEG. July 29: Patient dialyzed yesterday. Due for dialysis tomorrow. Remains in ICU. Full code. Status post trach tube to ventilator. Status post PEG. July 28: Due for dialysis today. Labs reviewed. Full code. Patient trached and vented. July 27: Last COVID test negative. COVID test will be repeated tomorrow. Will order dialysis tomorrow. Remains full code. Medication list and labs reviewed. July 26: No labs done today. Dialysis done yesterday. Will check lab tomorrow. Dialysis as needed. July 25: Lab reviewed. Dialysis today. Discussed with RN. July 24: Lab reviewed. Do dialysis tomorrow. Discussed with RN. July 23: Lab reviewed. Dialyzed yesterday. Discussed with RN. Remains full code. Next dialysis July 25. Will check labs tomorrow. July 22: Labs reviewed. Due for dialysis today. Discussed with RN. Watch borderline low blood pressure. Discussed with dialysis nurse. July 21: Today's lab reviewed. Will arrange for dialysis tomorrow. Discussed with RN. Aim to keep the blood pressure above 100 systolic. Continue per consultants. July 20: Patient was dialyzed yesterday. Could not ultrafiltrate much due to low blood pressure. Discussed with SHANIQUE Dick today. No labs drawn today. Continue per consultants. July 19: Due for dialysis today. Discussed with SHANIQUE Dick. Continue per consultants. July 18: Dialyzed July 16. Will order dialysis tomorrow July 19. Continues to be on ventilator through trach. No labs done today. Continue per consultants. July 17: Dialyzed yesterday. Stable from renal standpoint of view. Remains full code. Status post trach on vent. Status post PEG. Continue per consultants. July 16: Dialysis today. Will resume Midodrin to prevent hypotension. Patient remains full code. July 15: Dialyzed yesterday, due for dialysis tomorrow. Labs and medication list reviewed. Continue per consultants. Patient remains full code. COVID-19 detected again. July 14: Patient currently on dialysis. This is continuation of dialysis from yesterday as yesterday's dialysis was cut short due to catheter malfunction. Labs and medication reviewed. Continue per consultants. July 13: Patient currently on hemodialysis. The dialysis catheter which is a intrajugular Kamlesh has poor flow. Will try TPA. Continue per consultants. July 12: Due for PEG today. Due for dialysis tomorrow. Continue per consultants. Discussed with RN. July 11: Plan for dialysis today. Discussed with RN. Data reviewed. July 10: Plan for dialysis tomorrow July 11. Waiting for consent to proceed with PEG. Continue per consultants. Medication reviewed. Labs reviewed. Discussed with RN. July 09: Dialyzed yesterday. Labs reviewed. Medication reviewed. Next hemodialysis July 11. July 08: Patient has tracheostomy now. Connected to ventilator. Due for dialysis today. Continue per consultants. Discussed with SHANIQUE Romero. July 07: Patient is due for tracheostomy today. Patient was last dialyzed July 05. Will order dialysis for tomorrow. July 06: Patient is intubated on ventilator however the plan is to extubate today. Patient was dialysis yesterday July 05. The dialysis time was cut short due to patient's respiratory distress. Only 1 L was removed during dialysis yesterday. Today's lab reviewed. Continue per consultants. Will arrange for dialysis as needed. July 05: Patient due for dialysis today. Remains intubated. Will schedule permacath placement in a.m. blood cultures on July 04 are negative. July 04: Patient was dialyzed yesterday. Due for dialysis tomorrow. Continues to be intubated. After tomorrow's dialysis will order a permacath. July 03: Dialysis is about to be started now Continues to be intubated Will plan to remove the femoral dialysis catheter and exchanged for a new temporary catheter per ID recommendation We will check surveillance blood culture tomorrow July 02: Patient was dialyzed yesterday and due for dialysis tomorrow Stable from renal standpoint W on dialysis Continue per consultants, weaning....... etc. July 01: Dialysis today Other status unchanged June 30: Due for dialysis tomorrow Remains intubated on ventilator Labs and medication reviewed Discussed with RN Stable from renal standpoint of view June 29: Dialyzed yesterday Due for dialysis tomorrow Stable from renal standpoint to view Keeps failing weaning process June 28: Patient due for dialysis today Stable from renal standpoint to view Continue per consultants June 27: Labs reviewed Due due for dialysis June 28 Discussed with SHANIQUE Dick Continue per consultants Remains intubated on ventilator June 26 Labs reviewed Dialyzed yesterday Started on weaning today Continue to monitor renal parameters June 25: On dialysis now Potassium supplement implemented Continue per consultants Next dialysis June 27June 15: Status unchanged Dialyzed yesterday will dialyze again tomorrow Potassium supplements given Discussed with RN June 14: Due dialysis today Status: Remains intubated on ventilator June 22: Status unchanged Dialyzed yesterday and duefordialysistomorrow Serum sodium stable today June 21 Remains intubated on ventilator Due dialysis today Emphasized high sodium bath for dialysis June 20: Remains intubated on ventilator Dialyzed June 19 next dialysis June 21 Serum sodium 128, will give 250 cc 3% saline Remains full code Discussed with RN Iron panel ordered June 19: Discussed with RN. Patient due for dialysis today. Continue pulmonary support. Remains full code. June 18: Patient dialyzed yesterday June 17 Serum sodium improved but still low Arrange for dialysis tomorrow June 19 Continue per consultants June 17: Due for dialysis today Today's lab reviewed, low serum sodium noted, Emphasized on high sodium bath to dialysis nurse Discussed with SHANIQUE Yuen June 16: Dialyzed yesterday Remains intubated Labs reviewed, serum sodium 131 Plan to dialyze tomorrow June 17 with high sodium bath Discussed with SHANIQUE Yuen June 6: Due for dialysis today Labs reviewed Discussed with RN Transfuse 1 unit of packed RBCs today for low hemoglobin of 7.1 June 5: Blood pressure well maintained Receive dialysis June 13 next hemodialysis June 15June 4: Discussed with RN in ICU Patient did not receive proper dialysis yesterday due to dialysis catheter malfunction Catheter to be adjusted today and dialyzed to be resumed today Continue per consultants Positive for COVID 28 June 2: Patient now intubated on mechanical ventilation Discussed with SHANIQUE Yuen, today May 3 Patient received dialysis yesterday June 10 next hemodialysis June 12 Blood pressure better maintained Today's labs reviewed Continue per consultants Previously patient received dialysis last evening June 05, next dialysis June 07 which was incomplete due to patient's hypotension Will start on midodrine for blood pressure support. Meanwhile continue other pressors as needed Previously Patient is doing poorly, septic, white blood cells are rising, Hypotension somewhat improved We will keep n.p.o. , NG tube for medications, and change medication to IV as needed Patient remains full code Monitor vancomycin level Previously: Patient pulled out his femoral catheter yesterday June 03 which was reinserted by Dr. Mast Patient scheduled for dialysis again June 04, which again was not done due to dialysis nurse citing catheter malfunction Meanwhile continue management per ID, pulmonary , and psych. Meanwhile white blood cell count is rising. Patient blood pressure borderline low. Will check ABG Previously May 31 : I believe patient need dialysis treatment He however needs to competency assessment if can make decisions or not I will communicate with Dr. Mulligan Previously: Per pulmonary and ID advice Adjust blood pressure medication Renal diet Anemia work-up 2D echocardiogram refused Kidney ultrasound refused Jules catheter Urine studies Per orders Subjective ROS Limited/Unobtainable: Yes Objective Objective Last 24 Hour Vital Signs Date Time Temp Pulse Resp B/P (MAP) Pulse Ox O2 Delivery O2 Flow Rate FiO2 08/21/19 11:11 100 08/21/19 11:06 69 34 30 08/21/19 08:00 Mechanical Ventilator Mechanical Ventilator 08/21/19 08:00 80 08/21/19 08:00 30 08/21/19 08:00 98.4 87 30 121/74 (90) 100 08/21/19 07:41 85 31 30 08/21/19 04:00 30 08/21/19 04:00 97.5 85 25 122/76 (91) 100 08/21/19 04:00 Mechanical Ventilator Mechanical Ventilator 08/21/19 03:28 76 08/21/19 02:45 80 29 30 08/21/19 00:00 98.3 83 30 120/65 (83) 100 08/21/19 00:00 Mechanical Ventilator Mechanical Ventilator 08/21/19 00:00 30 08/20/19 23:40 83 08/20/19 22:49 80 28 30 08/20/19 20:00 Mechanical Ventilator Mechanical Ventilator 08/20/19 20:00 78 08/20/19 20:00 98.1 80 30 103/63 (76) 100 08/20/19 20:00 30 08/20/19 18:59 105 28 30 08/20/19 16:00 98.2 97 18 131/79 (96) 100 08/20/19 16:00 104 08/20/19 16:00 Mechanical Ventilator Mechanical Ventilator 08/20/19 16:00 30 08/20/19 15:15 100 08/20/19 15:15 107 32 30 08/20/19 15:13 30 Intake and Output 08/20/19 08/21/19 19:00 07:00 Intake Total 1190 ml 540 ml Balance 1190 ml 540 ml Free Water 230 ml 60 ml IV Total 400 ml Tube Feeding 560 ml 480 ml # Voids 1 # Bowel Movements 9 6 Laboratory Tests 08/20/19 16:42: POC Whole Blood Glucose 204H 08/20/19 23:42: POC Whole Blood Glucose [Pending] 08/21/19 05:27: POC Whole Blood Glucose [Pending] 08/21/19 05:55: White Blood Count 12.5H, Red Blood Count 3.28L, Hemoglobin 9.3L, Hematocrit 30.6L, Mean Corpuscular Volume 93, Mean Corpuscular Hemoglobin 28.3, Mean Corpuscular Hemoglobin Concent 30.3L, Red Cell Distribution Width 18.2H, Platelet Count 438, Mean Platelet Volume 6.6, Neutrophils (%) (Auto) 75.4H, Lymphocytes (%) (Auto) 10.5L, Monocytes (%) (Auto) 8.3, Eosinophils (%) (Auto) 4.5H, Basophils (%) (Auto) 1.3, Sodium Level 133L, Potassium Level 3.4L, Chloride Level 94L, Carbon Dioxide Level 21, Anion Gap 18H, Blood Urea Nitrogen 84H, Creatinine 8.9H, Estimat Glomerular Filtration Rate 6.0, Glucose Level 174H , Calcium Level 9.4, Phosphorus Level 5.6H, Magnesium Level 2.2, Total Bilirubin 0.4, Aspartate Amino Transf (AST/SGOT) 20, Alanine Aminotransferase ( ALT/SGPT) 14, Alkaline Phosphatase 126H, Total Protein 8.4H, Albumin 2.8L, Globulin 5.6, Albumin/Globulin Ratio 0.5L 08/21/19 11:42: POC Whole Blood Glucose [Pending] Height (Feet): 6 Height (Inches): 1.00 Weight (Pounds): 172 General Appearance: no apparent distress EENT: other - Trach and vent Cardiovascular: normal rate Respiratory/Chest: decreased breath sounds Abdomen: distended, other - PEG in place Objective No change Mic Cole MD Aug 21, 2019 13:36
--- NOTE | 2019-08-21 13:54 | Surgery Progress Note ---
Surgery Progress Note Subjective Procedure Performed Removal of tunneled right chest wall hemodialysis catheter Additional Comments HD catheter placement today. Noted leak From tracheostomy air leak balloon will not stay insufflated plan for tracheostomy exchange. Objective Last 24 Hour Vital Signs Date Time Temp Pulse Resp B/P (MAP) Pulse Ox O2 Delivery O2 Flow Rate FiO2 08/21/19 11:11 100 08/21/19 11:06 69 34 30 08/21/19 08:00 Mechanical Ventilator Mechanical Ventilator 08/21/19 08:00 80 08/21/19 08:00 30 08/21/19 08:00 98.4 87 30 121/74 (90) 100 08/21/19 07:41 85 31 30 08/21/19 04:00 30 08/21/19 04:00 97.5 85 25 122/76 (91) 100 08/21/19 04:00 Mechanical Ventilator Mechanical Ventilator 08/21/19 03:28 76 08/21/19 02:45 80 29 30 08/21/19 00:00 98.3 83 30 120/65 (83) 100 08/21/19 00:00 Mechanical Ventilator Mechanical Ventilator 08/21/19 00:00 30 08/20/19 23:40 83 08/20/19 22:49 80 28 30 08/20/19 20:00 Mechanical Ventilator Mechanical Ventilator 08/20/19 20:00 78 08/20/19 20:00 98.1 80 30 103/63 (76) 100 08/20/19 20:00 30 08/20/19 18:59 105 28 30 08/20/19 16:00 98.2 97 18 131/79 (96) 100 08/20/19 16:00 104 08/20/19 16:00 Mechanical Ventilator Mechanical Ventilator 08/20/19 16:00 30 08/20/19 15:15 100 08/20/19 15:15 107 32 30 08/20/19 15:13 30 I&O Intake and Output 08/20/19 08/21/19 19:00 07:00 Intake Total 1190 ml 540 ml Balance 1190 ml 540 ml Free Water 230 ml 60 ml IV Total 400 ml Tube Feeding 560 ml 480 ml # Voids 1 # Bowel Movements 9 6 Dressing: other Wound: other Drains: other Cardiovascular: RSR, other Respiratory: decreased breath sounds Abdomen: soft, non-tender, present bowel sounds Extremities: no edema, no tenderness, no cyanosis Laboratory Tests Test 08/20/19 16:42 08/20/19 23:42 08/21/19 05:27 08/21/19 05:55 POC Whole Blood Glucose 204 MG/DL (74-106) H Pending Pending White Blood Count 12.5 K/UL (4.8-10.8) H Red Blood Count 3.28 M/UL (4.70-6.10) L Hemoglobin 9.3 G/DL (14.2-18.0) L Hematocrit 30.6 % (42.0-52.0) L Mean Corpuscular Volume 93 FL (80-99) Mean Corpuscular Hemoglobin 28.3 PG (27.0-31.0) Mean Corpuscular Hemoglobin Concent 30.3 G/DL (32.0-36.0) L Red Cell Distribution Width 18.2 % (11.6-14.8) H Platelet Count 438 K/UL (150-450) Mean Platelet Volume 6.6 FL (6.5-10.1) Neutrophils (%) (Auto) 75.4 % (45.0-75.0) H Lymphocytes (%) (Auto) 10.5 % (20.0-45.0) L Monocytes (%) (Auto) 8.3 % (1.0-10.0) Eosinophils (%) (Auto) 4.5 % (0.0-3.0) H Basophils (%) (Auto) 1.3 % (0.0-2.0) Sodium Level 133 MMOL/L (136-145) L Potassium Level 3.4 MMOL/L (3.5-5.1) L Chloride Level 94 MMOL/L (98-107) L Carbon Dioxide Level 21 MMOL/L (21-32) Anion Gap 18 mmol/L (5-15) H Blood Urea Nitrogen 84 mg/dL (7-18) H Creatinine 8.9 MG/DL (0.55-1.30) H Estimat Glomerular Filtration Rate 6.0 mL/min (>60) Glucose Level 174 MG/DL (74-106) H Calcium Level 9.4 MG/DL (8.5-10.1) Phosphorus Level 5.6 MG/DL (2.5-4.9) H Magnesium Level 2.2 MG/DL (1.8-2.4) Total Bilirubin 0.4 MG/DL (0.2-1.0) Aspartate Amino Transf (AST/SGOT) 20 U/L (15-37) Alanine Aminotransferase (ALT/SGPT) 14 U/L (12-78) Alkaline Phosphatase 126 U/L (46-116) H Total Protein 8.4 G/DL (6.4-8.2) H Albumin 2.8 G/DL (3.4-5.0) L Globulin 5.6 g/dL Albumin/Globulin Ratio 0.5 (1.0-2.7) L Test 08/21/19 11:42 POC Whole Blood Glucose Pending Plan Problems: (1) Suspected COVID-19 virus infection (2) HTN (hypertension) (3) CASSANDRA (acute kidney injury) Assessment & Plan: Needs urgent HD needs access patient okay and consented see note will follow with recs new line placed discussed with team and nephrology HD line functional when checked has TPA now please use appropriately Cathflo used again this flow during dialysis on 430 was low. Will monitor may need line change 5/4 plan for HD as per renal may need to take fluid off with HD edema anasarca dressings saturated and changed will monitor cont with HD IJ left line placed for HD given extent of prior line in place. leukocytosis blood cx negative may need to change out line new line okay HD going well Continue HD as tolerated May need pressors for HD as needed (4) Anemia in chronic kidney disease (CKD) (5) Anemia (6) Renal failure (7) Suspected COVID-19 virus infection Assessment & Plan: Pt deconditioned and despite all skin preventions Pt noted to have developed several pressure injuries. . Stable dry eschar noted to clefts of R and L ears. No erythema noted . DTPI noted to L trochanter. Base of injury is maroon in colour with marginal erythema along borders. Partially opened DTPI Sacrum, R and L Buttocks. Base of wound is maroon with two small open wounds L sacrum and L buttocks. Pt has an APM/MOMO Mattress overlay and is being positioned with pillows as per tolerance and within protocols. worsening despite medical efforts will cont to provide therapy Tx.Plan: Apply Cavilon Skin Barrier to both ears Daily and prn. Apply Moisture Barrier Paste to Sacrum,R and L Buttocks. Cover with Optifoam drsgs. Change every 3 days and PRN. Apply Cavilon Skin Barrier to R and L trochanter. Cover each site with Optifoam drsgs.Change every 7 days and PRN. Apply Cavilon Skin Barrier to both heels. Cover each heel with Optifoam drsg. Change every 7 days and prn. Off-load heels with pillow. Reposition at least every 2hours or as tolerated. APM/MOMO Mattress overlay. (8) COVID-19 Assessment & Plan: COVID + c diff negative febrile leukocytosis renal insufficiency see above cont resp care Rx as per ID worsening on vent support now cxr noted on pressors prognosis guarded repeat covid ++ weaning vent and pressors off slowly showing improvement slowly recovering will need trach as unable to wean vent safely called and spoke with country conservatorship. consent obtained s/p trach pending peg worsening on levo max (9) Sepsis Assessment & Plan: worsening leukocytosis febrile on pressors discussed with ID. lines evaluated and clean. he is septic on pressors and needs central access in difficult venous access patient blood cultures negative will monitor temp HD cath out now with permacath left tlc still subclavian needed line c/d/i line negative c diff negative wbc resolved improved d/c planning febrile leukocytosis hold d/c infectious work up in place yeast in cultures fevers persistent fungemia abx as per ID hold on line removal cont abx repeat cx Plan for line removal plan for line holiday will replace dialysis catheter PRN Hemodialysis line change August 20 Tracheostomy exchange 8 [place] Shiley due to balloon insufficiency August 20 Yaniv Mast Aug 21, 2019 13:54
--- NOTE | 2019-08-21 13:59 | Operative Note - PDOC ---
Operative Note Operative Note Pre-op Diagnosis: COVID + sepsis respiratory insufficiency renal insufficiency Fungemia bacteremia Procedure: Insertion of left subclavian temporary hemodialysis catheter Tracheostomy exchange 8 Jamaican Anitaley Post-op Diagnosis: same as pre-op Surgeon: niyah Anesthesia: local Specimen: none Complications: none Condition: unstable Fluids: see records Estimated Blood Loss: minimal Drains: none Implant(s) used?: No Indications for Procedure 69-year-old male hospitalized some time now renal insufficiency for hemodialysis recent blood cultures noted fungating Tali bacteremia discussed with infectious disease and nephrology line was removed right chest wall tunneled hemodialysis catheter permacath and line holiday was proposed patient has been receiving antibiotics but discussion with nephrology requires urgent dialysis soon as possible. Plans for temporary vas catheter insertion at bedside. Procedure urgent unable to get a hold of conservator despite attempts made on August 19 and . Furthermore during evaluation patient for line placement was identified that the tracheostomy cuff will not hold sufficient insufflation and that there is a leak. Plan for tracheostomy exchange. Description of Procedure Patient was made comfortable at the bedside in the supine position. Initial attempts and evaluation were made at both femoral veins. The right femoral vein was not well visualized with the femoral artery was. Decision was made not to attempt right femoral vein placement. The left femoral vein was identified cannulated with venous flow noted but guidewire could not be advanced past a few centimeters therefore left femoral catheter insertion was aborted attention was turned to the right chest wall and right jugular but given recent tunneled catheter placement decision was made to evaluate for further placement and the left internal jugular was evaluated with ultrasound but very small and not appropriate for catheter placement. Unfortunately at this time using ultrasound it was identifiable the left subclavian was amenable and given the urgency decision was made to place a left subclavian catheter. The left chest wall is prepped draped in the same surgical fashion. Finder needle was used and left subclavian vein was cannulated. Good venous flow identified. Guidewire was placed and the needle removed. Small skin incision was made and dilators were used. A catheter was inserted without complication guidewire removed and discarded. Catheter was sutured in place as well as dressings. All ports flushed and aspirated appropriately. Chest x-ray obtained identifying catheter in appropriate position after manipulation and ensuring it in the correct position. Throughout the procedure lidocaine was used for patient's comfort. No immediate complications identified. Once this was completed attention was turned to the tracheostomy where the balloon was noted to be minimally insufflated and unable to insufflate appropriately with a leak identified. At this time decision made to change the tracheostomy for appropriate volumes as patient is still vent dependent. The balloon was desufflated and dressings were removed. The tracheostomy was removed and replaced with a 8 Jamaican Shiley tracheostomy without complication. New trach balloon was insufflated and patient was placed on the ventilator with good volumes and end-tidal CO2. Patient taught procedure well. Yaniv Mast Aug 21, 2019 13:59
--- NOTE | 2019-08-21 14:10 | Diagnostic Imaging Report ---
EXAM: XR Chest, 1 View CLINICAL HISTORY: LINE TECHNIQUE: Frontal view of the chest. COMPARISON: Chest x-ray 08/18/19 FINDINGS: Lungs: Mild interstitial prominence. No focal infiltrate or consolidation. Pleural space: Unremarkable. No pneumothorax. Heart: Unremarkable. No cardiomegaly. Mediastinum: Unremarkable. Bones/joints: Unremarkable. Tubes, lines and devices: Interval removal of the right IJ catheter and placement of left subclavian catheter, tip to the cavoatrial junction in good position. Stable tracheostomy tube. IMPRESSION: 1. Interval removal of the right IJ catheter and placement of left subclavian catheter, tip to the cavoatrial junction in good position. 2. Mild interstitial prominence. No focal infiltrate or consolidation.
--- NOTE | 2019-08-21 15:22 | Cardiac Electrophysiology PN ---
Assessment/Plan Assessment/Plan 1. NSTEMI type 2. Low level and flat due to renal failure. On Aspirin. EF 60%. 2. S/P Septic shock. On Abx. Better after NS and Albumin On Midodrine 10 tid 3. ESRD, on HD per Dr. Cole. S/P Left SC Kamlesh catheter placement by Dr Mast today 4. VDRF due to COVID pneumonia. S/P Tracheostomy 07/08/19. 5. Atrial fib with RVR. Off Lopressor for Low BP 6. Dysphagia, S/P PEG 07/13/19 7. COPD. 8. Anemia. DW RN Subjective Subjective In SDU on the vent via trach. Off pressors. Fio2 30%. Off isolation. S/P subclavian Kamlesh catheter by Dr Mast today Objective Last 24 Hour Vital Signs Date Time Temp Pulse Resp B/P (MAP) Pulse Ox O2 Delivery O2 Flow Rate FiO2 08/21/19 12:00 98.2 87 26 118/69 (85) 100 08/21/19 12:00 30 08/21/19 12:00 Mechanical Ventilator Mechanical Ventilator 08/21/19 11:11 100 08/21/19 11:06 69 34 30 08/21/19 08:00 Mechanical Ventilator Mechanical Ventilator 08/21/19 08:00 80 08/21/19 08:00 30 08/21/19 08:00 98.4 87 30 121/74 (90) 100 08/21/19 07:41 85 31 30 08/21/19 04:00 30 08/21/19 04:00 97.5 85 25 122/76 (91) 100 08/21/19 04:00 Mechanical Ventilator Mechanical Ventilator 08/21/19 03:28 76 08/21/19 02:45 80 29 30 08/21/19 00:00 98.3 83 30 120/65 (83) 100 08/21/19 00:00 Mechanical Ventilator Mechanical Ventilator 08/21/19 00:00 30 08/20/19 23:40 83 08/20/19 22:49 80 28 30 08/20/19 20:00 Mechanical Ventilator Mechanical Ventilator 08/20/19 20:00 78 08/20/19 20:00 98.1 80 30 103/63 (76) 100 08/20/19 20:00 30 08/20/19 18:59 105 28 30 08/20/19 16:00 98.2 97 18 131/79 (96) 100 08/20/19 16:00 104 08/20/19 16:00 Mechanical Ventilator Mechanical Ventilator 08/20/19 16:00 30 Intake and Output 08/20/19 08/21/19 19:00 07:00 Intake Total 1190 ml 540 ml Balance 1190 ml 540 ml Free Water 230 ml 60 ml IV Total 400 ml Tube Feeding 560 ml 480 ml # Voids 1 # Bowel Movements 9 6 Laboratory Tests Test 08/20/19 16:42 08/20/19 23:42 08/21/19 05:27 08/21/19 05:55 POC Whole Blood Glucose 204 MG/DL (74-106) H Pending Pending White Blood Count 12.5 K/UL (4.8-10.8) H Red Blood Count 3.28 M/UL (4.70-6.10) L Hemoglobin 9.3 G/DL (14.2-18.0) L Hematocrit 30.6 % (42.0-52.0) L Mean Corpuscular Volume 93 FL (80-99) Mean Corpuscular Hemoglobin 28.3 PG (27.0-31.0) Mean Corpuscular Hemoglobin Concent 30.3 G/DL (32.0-36.0) L Red Cell Distribution Width 18.2 % (11.6-14.8) H Platelet Count 438 K/UL (150-450) Mean Platelet Volume 6.6 FL (6.5-10.1) Neutrophils (%) (Auto) 75.4 % (45.0-75.0) H Lymphocytes (%) (Auto) 10.5 % (20.0-45.0) L Monocytes (%) (Auto) 8.3 % (1.0-10.0) Eosinophils (%) (Auto) 4.5 % (0.0-3.0) H Basophils (%) (Auto) 1.3 % (0.0-2.0) Sodium Level 133 MMOL/L (136-145) L Potassium Level 3.4 MMOL/L (3.5-5.1) L Chloride Level 94 MMOL/L (98-107) L Carbon Dioxide Level 21 MMOL/L (21-32) Anion Gap 18 mmol/L (5-15) H Blood Urea Nitrogen 84 mg/dL (7-18) H Creatinine 8.9 MG/DL (0.55-1.30) H Estimat Glomerular Filtration Rate 6.0 mL/min (>60) Glucose Level 174 MG/DL (74-106) H Calcium Level 9.4 MG/DL (8.5-10.1) Phosphorus Level 5.6 MG/DL (2.5-4.9) H Magnesium Level 2.2 MG/DL (1.8-2.4) Total Bilirubin 0.4 MG/DL (0.2-1.0) Aspartate Amino Transf (AST/SGOT) 20 U/L (15-37) Alanine Aminotransferase (ALT/SGPT) 14 U/L (12-78) Alkaline Phosphatase 126 U/L (46-116) H Total Protein 8.4 G/DL (6.4-8.2) H Albumin 2.8 G/DL (3.4-5.0) L Globulin 5.6 g/dL Albumin/Globulin Ratio 0.5 (1.0-2.7) L Test 08/21/19 11:42 POC Whole Blood Glucose Pending Microbiology Date/Time Source Procedure Growth Status 08/19/19 13:00 Catheter Site Catheter Tip Culture - Preliminary NO GROWTH AFTER 24 HOURS Resulted Objective HEAD AND NECK: No JVD. Tracheostomy in place. Left SC Kamlesh now in place. LUNGS: Decreased breath sounds. CARDIOVASCULAR: Regular S1 and S2. Tachycardic. ABDOMEN: Soft. PEG in place EXTREMITIES: No pitting edema. Gio Baker MD Aug 21, 2019 15:22
[2019-08-21 16:00] VITALS: BP 121/72
[2019-08-21] MEDS: Acetaminophen 650mg/20.3ml NG PRN (17:23)
[2019-08-21 20:00] VITALS: BP 92/59
[2019-08-21] MEDS: Dyna-Hex 2% Top Sol 2oz TOPIC SCH (20:26)
[2019-08-22] VITALS: BP 109/57
[2019-08-22] MEDS: NovoLOG Insulin Flexpen SUBQ SCH ×5 (00:03→23:02)
[2019-08-22 04:00] VITALS: BP 119/68
--- NOTE | 2019-08-22 05:40 | Pulmonolgy Critical Care Note ---
Critical Care - Asmt/Plan Assessment/Plan: Pulmonary Progress Note HPI: Patient is a 68 year old man, [place] resident, admitted c/o shortness of breath, cough, noted to have Covid 19 Pneumonia, Respiratory Failure Remains on Ventilator, CXR infiltrates stable 08/17 Anemia CKD on HD, Intemittent hypotension, prn albumin, beta sonia being held, on Mitodrine, will need eventual placement, second consecutive repeat COVID19 test negative Preserved EF FIO2 30%, P5, adequate O2 sats, remains on ACVC, tolerating CPAP PS 8 day, s/p Tracheostomy previously, sp PEG, sp HD line insertion ID following MRSA sputum Reviewed earlier on 08/21/2019 Past Medical History: COPD, CKD, Hypertension, Anemia Allergies: No Known Allergies Improving Pulmonary Status on HD Physical Exam Vital Signs Noted Stable on ventilator Chronically ill appearing HEENT: Trach CDI Chest: CTAB Hreart: HS1, HS2, RRR Abdomen: SNTND, Gtube Extremities: Wasted, no edema TOBACCO CLASSER:No focal signs Impression: COVID-19 virus infection - now Covid negative Pneumonia Respiratory failure on ventilator, wean as tolerated CKD - on HD Previous NSTEMI Hypotension resolved Cardiomegaly Fungemia MRSA sputum COPD Chronic Kidney Disease - HD H/o Hypertension Anemia Plan: trach care as is Antibiotics per ID HD per renal monitor vitals AC - wean as tolerated anxiolytics if needed 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 PRN Monitor lab data nutrition feeds Hemodialysis per Renal, currently on line holiday impression, plan, and exam edited and reviewed in detail care discussed with RN Laboratory Tests Noted: CXR: No acute changes Subjective ROS Limited/Unobtainable: Yes Allergies: Coded Allergies: No Known Allergies (Unverified , 05/28/19) Critical Care - Objective Last 24 Hour Vital Signs Date Time Temp Pulse Resp B/P (MAP) Pulse Ox O2 Delivery O2 Flow Rate FiO2 08/22/19 04:00 30 08/22/19 04:00 Mechanical Ventilator Mechanical Ventilator 08/22/19 03:42 100 08/22/19 03:30 102 32 30 08/22/19 00:00 98.1 89 26 109/57 (74) 99 08/22/19 00:00 Mechanical Ventilator Mechanical Ventilator 08/21/19 23:35 91 08/21/19 23:30 90 32 30 08/21/19 20:00 98.2 100 30 92/59 (70) 100 08/21/19 20:00 30 08/21/19 20:00 Mechanical Ventilator Mechanical Ventilator 08/21/19 19:48 96 08/21/19 19:30 97 35 30 08/21/19 17:53 98.0 08/21/19 16:00 30 08/21/19 16:00 100.6 103 30 121/72 (88) 100 08/21/19 16:00 Mechanical Ventilator Mechanical Ventilator 08/21/19 16:00 103 08/21/19 15:24 95 29 30 08/21/19 12:00 98.2 87 26 118/69 (85) 100 08/21/19 12:00 102 08/21/19 12:00 30 08/21/19 12:00 Mechanical Ventilator Mechanical Ventilator 08/21/19 11:11 100 08/21/19 11:06 69 34 30 08/21/19 08:00 Mechanical Ventilator Mechanical Ventilator 08/21/19 08:00 80 08/21/19 08:00 30 08/21/19 08:00 98.4 87 30 121/74 (90) 100 08/21/19 07:41 85 31 30 Micro: Microbiology Date/Time Source Procedure Growth Status 08/19/19 13:00 Catheter Site Catheter Tip Culture - Preliminary NO GROWTH AFTER 48 HOURS Resulted Accucheck: 222 Critical Care - Subjective ROS Limited/Unobtainable: Yes Condition: stable FI02: 30 Vent Support Breath Rate: 26 Vent Support Mode: AC Vent Tidal Volume: 500 Sputum Amount: Small PEEP: 5.0 PIP: 21 Tube Feeding Amount: 40 I&O: Intake and Output 08/21/19 08/22/19 19:00 07:00 Intake Total 770 ml 350 ml Balance 770 ml 350 ml Free Water 90 ml 30 ml IV Total 200 ml Tube Feeding 480 ml 320 ml # Bowel Movements 5 1 ET-Tube: 7.5 ET Position: 24 Arturo Mckeon MD Aug 22, 2019 05:40
[2019-08-22] MEDS: Acetaminophen 650mg/20.3ml NG PRN ×3 (06:36→23:07)
--- NOTE | 2019-08-22 06:57 | General Progress Note ---
Assessment/Plan Status: unchanged Assessment/Plan: 1. Diabetes. 2. Hypertension. 3. Coronary artery disease. 4. COPD. 5. Psychiatric disorder with schizophrenia. 6. History of hepatitis C. 7. HLP. 8. Chronic kidney disease, now with acute renal failure. 9. Anemia. 10. Hypothyroidism. 11. Spinal stenosis. 12. Constipation. 13. GERD. 14. COVID positive HD per nephrology fu labs s/p PEG GTF TF at 40 cc imodium lomotil neg C.diff off reglan monitor for residuals Subjective ROS Limited/Unobtainable: No Allergies: Coded Allergies: No Known Allergies (Unverified , 05/28/19) Objective Last 24 Hour Vital Signs Date Time Temp Pulse Resp B/P (MAP) Pulse Ox O2 Delivery O2 Flow Rate FiO2 08/22/19 04:00 30 08/22/19 04:00 Mechanical Ventilator Mechanical Ventilator 08/22/19 04:00 98.9 93 26 119/68 (85) 99 08/22/19 03:42 100 08/22/19 03:30 102 32 30 08/22/19 00:00 98.1 89 26 109/57 (74) 99 08/22/19 00:00 Mechanical Ventilator Mechanical Ventilator 08/21/19 23:35 91 08/21/19 23:30 90 32 30 08/21/19 20:00 98.2 100 30 92/59 (70) 100 08/21/19 20:00 30 08/21/19 20:00 Mechanical Ventilator Mechanical Ventilator 08/21/19 19:48 96 08/21/19 19:30 97 35 30 08/21/19 17:53 98.0 08/21/19 16:00 30 08/21/19 16:00 100.6 103 30 121/72 (88) 100 08/21/19 16:00 Mechanical Ventilator Mechanical Ventilator 08/21/19 16:00 103 08/21/19 15:24 95 29 30 08/21/19 12:00 98.2 87 26 118/69 (85) 100 08/21/19 12:00 102 08/21/19 12:00 30 08/21/19 12:00 Mechanical Ventilator Mechanical Ventilator 08/21/19 11:11 100 08/21/19 11:06 69 34 30 08/21/19 08:00 Mechanical Ventilator Mechanical Ventilator 08/21/19 08:00 80 08/21/19 08:00 30 08/21/19 08:00 98.4 87 30 121/74 (90) 100 08/21/19 07:41 85 31 30 Intake and Output 08/21/19 08/22/19 19:00 07:00 Intake Total 770 ml 500 ml Balance 770 ml 500 ml Free Water 90 ml 60 ml IV Total 200 ml Tube Feeding 480 ml 440 ml # Bowel Movements 5 3 Laboratory Tests 08/21/19 11:42: POC Whole Blood Glucose [Pending] 08/21/19 17:25: POC Whole Blood Glucose [Pending] 08/22/19 00:03: POC Whole Blood Glucose 222H 08/22/19 05:57: POC Whole Blood Glucose 194H Height (Feet): 6 Height (Inches): 1.00 Weight (Pounds): 172 General Appearance: no apparent distress EENT: PERRL/EOMI Neck: normal alignment Cardiovascular: normal rate Respiratory/Chest: decreased breath sounds Abdomen: hypoactive bowel sounds Extremities: non-tender Marito Ramires MD Aug 22, 2019 06:57
[2019-08-22 08:00] VITALS: BP 109/66
[2019-08-22 08:19] LABS: BASOPHILS % (AUTO) 0.6 % (0.0-2.0); EOSINOPHILS % (AUTO) 3.1 % (0.0-3.0); HEMATOCRIT 28.3 % (42.0-52.0); HEMOGLOBIN 8.7 G/DL (14.2-18.0); LYMPHOCYTES % (AUTO) 10.8 % (20.0-45.0); MEAN CORPUSCULAR VOLUME 91 FL (80-99); MONOCYTES % (AUTO) 8.4 % (1.0-10.0); NEUTROPHILS % (AUTO) 77.1 % (45.0-75.0); PLATELET COUNT 446 K/UL (150-450); RED BLOOD COUNT 3.11 M/UL (4.70-6.10); RED CELL DISTRIBUTION WIDTH 17.5 % (11.6-14.8); WHITE BLOOD COUNT 15.2 K/UL (4.8-10.8)
[2019-08-22] MEDS: Lomotil 2.5mg tab ORAL SCH ×2 (08:30→17:24)
[2019-08-22] MEDS: Midodrine 10mg tab NG SCH ×3 (08:30→17:37)
[2019-08-22] MEDS: Fluconazole 100mg tab NG SCH (08:30)
[2019-08-22] MEDS: Pantoprazole Inj IVP SCH (08:30)
[2019-08-22] MEDS: Enoxaparin 30mg Inj SUBQ SCH (08:31)
[2019-08-22 08:45] LABS: ANION GAP 19 mmol/L (5-15); BLOOD UREA NITROGEN 104 mg/dL (7-18); CALCIUM 9.3 MG/DL (8.5-10.1); CARBON DIOXIDE 22 MMOL/L (21-32); CHLORIDE 94 MMOL/L (98-107); CREATININE 10.3 MG/DL (0.55-1.30); POTASSIUM 3.7 MMOL/L (3.5-5.1); SODIUM 135 MMOL/L (136-145)
[2019-08-22] MEDS ORDERED: Tubing IV Secondary IV ONE (09:57)
[2019-08-22] MEDS ORDERED: NS 275ml ONE (09:57)
--- NOTE | 2019-08-22 10:05 | General Progress Note ---
Assessment/Plan Problem List: (1) Suspected COVID-19 virus infection ICD Codes: R68.89 - Other general symptoms and signs SNOMED: 019715655 (2) Anemia ICD Codes: D64.9 - Anemia, unspecified SNOMED: 325822074 (3) Renal failure ICD Codes: N19 - Unspecified kidney failure SNOMED: 49370706 Status: unchanged Assessment/Plan: vent abx neph f/u cbc bmp am Subjective Constitutional: Reports: weakness Allergies: Coded Allergies: No Known Allergies (Unverified , 05/28/19) All Systems: reviewed and negative except above Subjective trach vent altered Objective Last 24 Hour Vital Signs Date Time Temp Pulse Resp B/P (MAP) Pulse Ox O2 Delivery O2 Flow Rate FiO2 08/22/19 08:00 99.3 92 26 109/66 (80) 100 08/22/19 07:20 96 29 30 08/22/19 07:06 99.3 08/22/19 04:00 30 08/22/19 04:00 Mechanical Ventilator Mechanical Ventilator 08/22/19 04:00 98.9 93 26 119/68 (85) 99 08/22/19 03:42 100 08/22/19 03:30 102 32 30 08/22/19 00:00 98.1 89 26 109/57 (74) 99 08/22/19 00:00 Mechanical Ventilator Mechanical Ventilator 08/21/19 23:35 91 08/21/19 23:30 90 32 30 08/21/19 20:00 98.2 100 30 92/59 (70) 100 08/21/19 20:00 30 08/21/19 20:00 Mechanical Ventilator Mechanical Ventilator 08/21/19 19:48 96 08/21/19 19:30 97 35 30 08/21/19 16:00 30 08/21/19 16:00 100.6 103 30 121/72 (88) 100 08/21/19 16:00 Mechanical Ventilator Mechanical Ventilator 08/21/19 16:00 103 08/21/19 15:24 95 29 30 08/21/19 12:00 98.2 87 26 118/69 (85) 100 08/21/19 12:00 102 08/21/19 12:00 30 08/21/19 12:00 Mechanical Ventilator Mechanical Ventilator 08/21/19 11:11 100 08/21/19 11:06 69 34 30 Intake and Output 08/21/19 08/22/19 19:00 07:00 Intake Total 770 ml 540 ml Balance 770 ml 540 ml Free Water 90 ml 60 ml IV Total 200 ml Tube Feeding 480 ml 480 ml # Bowel Movements 5 3 Laboratory Tests 08/21/19 11:42: POC Whole Blood Glucose [Pending] 08/21/19 17:25: POC Whole Blood Glucose [Pending] 08/22/19 00:03: POC Whole Blood Glucose 222H 08/22/19 05:57: POC Whole Blood Glucose 194H 08/22/19 07:50: White Blood Count 15.2H, Red Blood Count 3.11L, Hemoglobin 8.7L, Hematocrit 28.3L, Mean Corpuscular Volume 91, Mean Corpuscular Hemoglobin 28.1, Mean Corpuscular Hemoglobin Concent 30.8L, Red Cell Distribution Width 17.5H, Platelet Count 446, Mean Platelet Volume 6.7, Neutrophils (%) (Auto) 77.1H, Lymphocytes (%) (Auto) 10.8L, Monocytes (%) (Auto) 8.4, Eosinophils (%) (Auto) 3.1H, Basophils (%) (Auto) 0.6, Sodium Level 135L, Potassium Level 3.7, Chloride Level 94L, Carbon Dioxide Level 22, Anion Gap 19H, Blood Urea Nitrogen 104H, Creatinine 10.3H, Estimat Glomerular Filtration Rate 5.1, Glucose Level 191H, Calcium Level 9.3 Height (Feet): 6 Height (Inches): 1.00 Weight (Pounds): 172 General Appearance: lethargic EENT: normal ENT inspection Neck: normal alignment Cardiovascular: normal rate, regular rhythm Respiratory/Chest: no respiratory distress, no accessory muscle use Extremities: normal inspection Skin: normal pigmentation Gustavo Ybarra DO Aug 22, 2019 10:05
--- NOTE | 2019-08-22 10:28 | Surgery Progress Note ---
Surgery Progress Note Subjective Procedure Performed Insertion of left subclavian temporary hemodialysis catheter Tracheostomy exchange 8 Tajik Shiley Additional Comments line okay plan HD cxr reviewed exam stable Objective Last 24 Hour Vital Signs Date Time Temp Pulse Resp B/P (MAP) Pulse Ox O2 Delivery O2 Flow Rate FiO2 08/22/19 08:00 99.3 92 26 109/66 (80) 100 08/22/19 07:20 96 29 30 08/22/19 07:06 99.3 08/22/19 04:00 30 08/22/19 04:00 Mechanical Ventilator Mechanical Ventilator 08/22/19 04:00 98.9 93 26 119/68 (85) 99 08/22/19 03:42 100 08/22/19 03:30 102 32 30 08/22/19 00:00 98.1 89 26 109/57 (74) 99 08/22/19 00:00 Mechanical Ventilator Mechanical Ventilator 08/21/19 23:35 91 08/21/19 23:30 90 32 30 08/21/19 20:00 98.2 100 30 92/59 (70) 100 08/21/19 20:00 30 08/21/19 20:00 Mechanical Ventilator Mechanical Ventilator 08/21/19 19:48 96 08/21/19 19:30 97 35 30 08/21/19 16:00 30 08/21/19 16:00 100.6 103 30 121/72 (88) 100 08/21/19 16:00 Mechanical Ventilator Mechanical Ventilator 08/21/19 16:00 103 08/21/19 15:24 95 29 30 08/21/19 12:00 98.2 87 26 118/69 (85) 100 08/21/19 12:00 102 08/21/19 12:00 30 08/21/19 12:00 Mechanical Ventilator Mechanical Ventilator 08/21/19 11:11 100 08/21/19 11:06 69 34 30 I&O Intake and Output 08/21/19 08/22/19 19:00 07:00 Intake Total 770 ml 540 ml Balance 770 ml 540 ml Free Water 90 ml 60 ml IV Total 200 ml Tube Feeding 480 ml 480 ml # Bowel Movements 5 3 Dressing: dry Wound: dry Cardiovascular: RSR Respiratory: clear Abdomen: soft, non-tender, present bowel sounds Extremities: no tenderness, no cyanosis Laboratory Tests Test 7/11/20 11:42 08/21/19 17:25 08/22/19 00:03 08/22/19 05:57 POC Whole Blood Glucose Pending Pending 222 MG/DL (74-106) H 194 MG/DL (74-106) H Test 08/22/19 07:50 White Blood Count 15.2 K/UL (4.8-10.8) H Red Blood Count 3.11 M/UL (4.70-6.10) L Hemoglobin 8.7 G/DL (14.2-18.0) L Hematocrit 28.3 % (42.0-52.0) L Mean Corpuscular Volume 91 FL (80-99) Mean Corpuscular Hemoglobin 28.1 PG (27.0-31.0) Mean Corpuscular Hemoglobin Concent 30.8 G/DL (32.0-36.0) L Red Cell Distribution Width 17.5 % (11.6-14.8) H Platelet Count 446 K/UL (150-450) Mean Platelet Volume 6.7 FL (6.5-10.1) Neutrophils (%) (Auto) 77.1 % (45.0-75.0) H Lymphocytes (%) (Auto) 10.8 % (20.0-45.0) L Monocytes (%) (Auto) 8.4 % (1.0-10.0) Eosinophils (%) (Auto) 3.1 % (0.0-3.0) H Basophils (%) (Auto) 0.6 % (0.0-2.0) Sodium Level 135 MMOL/L (136-145) L Potassium Level 3.7 MMOL/L (3.5-5.1) Chloride Level 94 MMOL/L (98-107) L Carbon Dioxide Level 22 MMOL/L (21-32) Anion Gap 19 mmol/L (5-15) H Blood Urea Nitrogen 104 mg/dL (7-18) H Creatinine 10.3 MG/DL (0.55-1.30) H Estimat Glomerular Filtration Rate 5.1 mL/min (>60) Glucose Level 191 MG/DL (74-106) H Calcium Level 9.3 MG/DL (8.5-10.1) Plan Problems: (1) Suspected COVID-19 virus infection (2) HTN (hypertension) (3) CASSANDRA (acute kidney injury) Assessment & Plan: Needs urgent HD needs access patient okay and consented see note will follow with recs new line placed discussed with team and nephrology HD line functional when checked has TPA now please use appropriately Cathflo used again this flow during dialysis on 430 was low. Will monitor may need line change 5/ plan for HD as per renal may need to take fluid off with HD edema anasarca dressings saturated and changed will monitor cont with HD IJ left line placed for HD given extent of prior line in place. leukocytosis blood cx negative may need to change out line new line okay HD going well Continue HD as tolerated May need pressors for HD as needed (4) Anemia in chronic kidney disease (CKD) (5) Anemia (6) Renal failure (7) Suspected COVID-19 virus infection Assessment & Plan: Pt deconditioned and despite all skin preventions Pt noted to have developed several pressure injuries. . Stable dry eschar noted to clefts of R and L ears. No erythema noted . DTPI noted to L trochanter. Base of injury is maroon in colour with marginal erythema along borders. Partially opened DTPI Sacrum, R and L Buttocks. Base of wound is maroon with two small open wounds L sacrum and L buttocks. Pt has an APM/MOMO Mattress overlay and is being positioned with pillows as per tolerance and within protocols. worsening despite medical efforts will cont to provide therapy Tx.Plan: Apply Cavilon Skin Barrier to both ears Daily and prn. Apply Moisture Barrier Paste to Sacrum,R and L Buttocks. Cover with Optifoam drsgs. Change every 3 days and PRN. Apply Cavilon Skin Barrier to R and L trochanter. Cover each site with Optifoam drsgs.Change every 7 days and PRN. Apply Cavilon Skin Barrier to both heels. Cover each heel with Optifoam drsg. Change every 7 days and prn. Off-load heels with pillow. Reposition at least every 2hours or as tolerated. APM/MOMO Mattress overlay. (8) COVID-19 Assessment & Plan: COVID + c diff negative febrile leukocytosis renal insufficiency see above cont resp care Rx as per ID worsening on vent support now cxr noted on pressors prognosis guarded repeat covid ++ weaning vent and pressors off slowly showing improvement slowly recovering will need trach as unable to wean vent safely called and spoke with country conservatorship. consent obtained s/p trach pending peg worsening on levo max (9) Sepsis Assessment & Plan: worsening leukocytosis febrile on pressors discussed with ID. lines evaluated and clean. he is septic on pressors and needs central access in difficult venous access patient blood cultures negative will monitor temp HD cath out now with permacath left tlc still subclavian needed line c/d/i line negative c diff negative wbc resolved improved d/c planning febrile leukocytosis hold d/c infectious work up in place yeast in cultures fevers persistent fungemia abx as per ID hold on line removal cont abx repeat cx Plan for line removal plan for line holiday will replace dialysis catheter PRN Hemodialysis line change August 20 Tracheostomy exchange 8 Tajik Shiley due to balloon insufficiency August 20 Yaniv Mast Aug 22, 2019 10:28
[2019-08-22 12:00] VITALS: BP 112/71
--- NOTE | 2019-08-22 12:28 | Infectious Diseases Prog Note ---
Assessment/Plan Assessment/Plan IMPRESSION: 1. COVID19 pneumonia Positive: 05/27, 05/31 , 06/05, 06/09 ,06/17, 06/19, 06/23, 06/27, 07/03, 07/15, 07/29 Negative: 07/26, 08/04, 08/05 2. MRSA carrier. 3. Chronic kidney disease , end-stage renal disease. 4. COPD. 5. Hypertension. 6. Anemia. 7. Hypothyroidism. 8. Hyperlipidemia. 9. Major depression. 10. Leukocytosis 11. Hypotension 12. Hepatitis C 13. Hyperuricemia 14. Diarrhea, C difficile negative 15. septic shock 16.Sepsis blood cultures 08/08 & 08/12 : yeast blood culture: Staph Coagulase negative 17. Pneumonia with Staph aureus ( MRSA) 18. Candidal sepsis 19. Diarrhea, C. difficile negative RECOMMENDATIONS: continue Fluconazole & Vancomycin Subjective ROS Limited/Unobtainable: Yes Cardiovascular: Reports: other - Had new HD placed yesterday Genitourinary: Reports: other - on bedside HD Allergies: Coded Allergies: No Known Allergies (Unverified , 05/28/19) Objective Last 24 Hour Vital Signs Date Time Temp Pulse Resp B/P (MAP) Pulse Ox O2 Delivery O2 Flow Rate FiO2 08/22/19 12:16 100 08/22/19 10:56 95 33 30 08/22/19 08:00 30 08/22/19 08:00 99.3 92 26 109/66 (80) 100 08/22/19 08:00 96 08/22/19 08:00 Mechanical Ventilator Mechanical Ventilator 08/22/19 07:20 96 29 30 08/22/19 07:06 99.3 08/22/19 04:00 30 08/22/19 04:00 Mechanical Ventilator Mechanical Ventilator 08/22/19 04:00 98.9 93 26 119/68 (85) 99 08/22/19 03:42 100 08/22/19 03:30 102 32 30 08/22/19 00:00 98.1 89 26 109/57 (74) 99 08/22/19 00:00 Mechanical Ventilator Mechanical Ventilator 08/21/19 23:35 91 08/21/19 23:30 90 32 30 08/21/19 20:00 98.2 100 30 92/59 (70) 100 08/21/19 20:00 30 08/21/19 20:00 Mechanical Ventilator Mechanical Ventilator 08/21/19 19:48 96 08/21/19 19:30 97 35 30 08/21/19 16:00 30 08/21/19 16:00 100.6 103 30 121/72 (88) 100 08/21/19 16:00 Mechanical Ventilator Mechanical Ventilator 08/21/19 16:00 103 08/21/19 15:24 95 29 30 Height (Feet): 6 Height (Inches): 1.00 Weight (Pounds): 172 HEENT: mucous membranes moist, status post trach Respiratory/Chest: lungs clear Cardiovascular: normal rate, other - left lided temporaray HD line Abdomen: soft, non tender Extremities: no edema Neurologic/Psychiatric: alert, responsive Microbiology Date/Time Source Procedure Growth Status 08/19/19 13:00 Catheter Site Catheter Tip Culture - Preliminary NO GROWTH AFTER 48 HOURS Resulted Laboratory Tests Test 08/21/19 17:25 08/22/19 00:03 08/22/19 05:57 08/22/19 07:50 POC Whole Blood Glucose Pending 222 MG/DL (74-106) H 194 MG/DL (74-106) H White Blood Count 15.2 K/UL (4.8-10.8) H Red Blood Count 3.11 M/UL (4.70-6.10) L Hemoglobin 8.7 G/DL (14.2-18.0) L Hematocrit 28.3 % (42.0-52.0) L Mean Corpuscular Volume 91 FL (80-99) Mean Corpuscular Hemoglobin 28.1 PG (27.0-31.0) Mean Corpuscular Hemoglobin Concent 30.8 G/DL (32.0-36.0) L Red Cell Distribution Width 17.5 % (11.6-14.8) H Platelet Count 446 K/UL (150-450) Mean Platelet Volume 6.7 FL (6.5-10.1) Neutrophils (%) (Auto) 77.1 % (45.0-75.0) H Lymphocytes (%) (Auto) 10.8 % (20.0-45.0) L Monocytes (%) (Auto) 8.4 % (1.0-10.0) Eosinophils (%) (Auto) 3.1 % (0.0-3.0) H Basophils (%) (Auto) 0.6 % (0.0-2.0) Sodium Level 135 MMOL/L (136-145) L Potassium Level 3.7 MMOL/L (3.5-5.1) Chloride Level 94 MMOL/L (98-107) L Carbon Dioxide Level 22 MMOL/L (21-32) Anion Gap 19 mmol/L (5-15) H Blood Urea Nitrogen 104 mg/dL (7-18) H Creatinine 10.3 MG/DL (0.55-1.30) H Estimat Glomerular Filtration Rate 5.1 mL/min (>60) Glucose Level 191 MG/DL (74-106) H Calcium Level 9.3 MG/DL (8.5-10.1) Test 08/22/19 12:17 POC Whole Blood Glucose 231 MG/DL (74-106) H Current Medications Medications (Trade) Dose Ordered Sig/Anthony Route PRN Reason Start Time Stop Time Status Last Admin Dose Admin Acetaminophen (Tylenol) 650 mg Q4H PRN NG For Pain 08/04/19 21:38 09/03/19 21:37 08/22/19 06:36 Acetaminophen (Tylenol) 650 mg Q4H PRN NG Temp >100.5 08/15/19 13:30 09/08/19 08:29 Chlorhexidine Gluconate (Michelle-Hex 2%) 1 applic DAILY@1999 TOPIC 08/21/19 20:00 11/19/19 19:59 08/21/19 20:26 Dextrose (Dextrose 50%) 25 ml Q30M PRN IV Hypoglycemia 08/04/19 22:00 09/18/19 19:29 Dextrose (Dextrose 50%) 50 ml Q30M PRN IV Hypoglycemia 08/04/19 22:00 09/18/19 19:29 Diphenoxylate HCl/ Atropine (Lomotil) 2.5 mg BID ORAL 08/18/19 18:00 09/17/19 17:59 08/22/19 08:30 Enoxaparin Sodium (Lovenox) 30 mg DAILY SUBQ 08/05/19 09:00 08/27/19 08:59 08/20/19 08:32 Epoetin Aftab (Epoetin Aftab(ESRD on dialysis)) 10,000 unit FRI-FRI-FRI SUBQ 08/11/19 21:00 11/09/19 20:59 08/20/19 20:29 Fluconazole (Diflucan) 200 mg DAILY NG 08/13/19 10:24 08/24/19 10:23 08/22/19 08:30 Haloperidol Lactate 5 mg/ Dextrose 56 ml @ 224 mls/hr Q6H PRN IVPB Agitation 08/04/19 21:38 09/18/19 21:37 08/19/19 02:26 Heparin Sodium/ Sodium Chloride (Heparin 1000 units/500ml Premix) 1,000 unit ONCE PRN IV radiology procdure 08/20/19 14:15 08/22/19 13:44 Hydralazine HCl (Apresoline) 10 mg Q4H PRN IV Blood pressure over 160 systol 08/04/19 21:39 11/02/19 21:38 Insulin Aspart (NovoLOG) EVERY 6 HOURS SUBQ 08/05/19 00:00 09/19/19 00:00 08/22/19 12:19 Lidocaine HCl (Xylocaine 1% 30ml) 30 ml ONCE PRN INJ radiology procedure 08/20/19 13:45 08/22/19 13:44 Loperamide HCl (Imodium) 2 mg Q6H NG 08/18/19 14:00 09/15/19 13:59 08/22/19 08:30 Midodrine (Pro-Amatine) 10 mg THREE TIMES A DAY NG 08/15/19 18:00 11/13/19 17:59 08/22/19 08:30 Pantoprazole (Protonix) 40 mg DAILY IVP 08/05/19 09:00 08/26/19 08:59 08/22/19 08:30 Vancomycin HCl (Vanco pharmacy to dose) 1 ea DAILY PRN MISC Per rx protocol 08/15/19 08:45 09/14/19 08:44 Ted Leyva MD Aug 22, 2019 12:28
--- NOTE | 2019-08-22 13:01 | Hematology/Onc Progress Note ---
Assessment/Plan Assessment/Plan Assessment and Recs: # Anemia of chronic disease, likely related ot underlying kidney disease has COIVD19++++++ --> hgb trend 9-->8-->7.3-->7.9-->6.8->9.5-->10->8.3-->7.7-->7.1-->8.9->8.8->7.7 -->8.1 ->7.9-->7.7 -->8.2-->8.1 -->7.9-->8.5 -->9->9.2-->9.5-->10.7 -->9.8--> 10.2-->11.8 -->11.9-->8.8 ->9.4->9-->8.3 -->8.5-->9.4->9.8-->9-->8.3-->11.6--> 10.8-->10.5-->10->9.7->9.9->8.7 --> transfuse as needed, hgb goal >7 --> no evidence of hemolysis --> peripheral smear has been reviewed --> epogen started 3 x a week ==>> transfuse 06/08, 06/15 # Leukocytosis likely related to suspected COVID-19 virus infection --> completed plaquenil --> trend smear as needed --> wbc trend: 4-->11-->14.5-->21-->26-->21->24--.28-->23-->19-->16.2-->21--> 11.2 -->12.5-->12.3-->12.4-->18.5-->18.5-->17->13-->18.2-->22.2-->25-->17.4-->17 -->14.2-->14-->16-->15.5-->9->17->11.5-->12->12-->18->15 --> pulm is aware --> on abx cefepime/vanc->zosyn/vanc-->dom/vanc-->dom-->levaquin/cefepime--> vanc/zosyn --> vanc --> pressors as needed --> 06/27 covid 19++ --> pressors as needed in icu --> c diff negative 08/08 --> blood cx++ # Thrombocytopenia/Lymphopenia --> likely related to covid19 --> plt 129k-->186k-->251-->285-->384 -->430-->539-->515-->447-->451-->404-->544 -->244 -->393 # Respiratory failure with covid19+ --> s/p vent/trach --> weaning # Possible Pneumonia --> abx completed --> 07/13 cxr: Improved right lung infiltrates. # Cardiomegaly # Transaminitis with Elevated AST # COPD # Chronic Kidney Disease --> per renal hd --> s/p right femoral cath 07/02 # Hypertension # peg # Dvt ppx lovenox Appreciate consultation and ernesto Rn Subjective Constitutional: Denies: no symptoms, chills, fever, malaise, weakness, other HEENT: Denies: no symptoms, eye pain, blurred vision, tearing, double vision, ear pain, ear discharge, nose pain, nose congestion, throat pain, throat swelling, mouth pain, mouth swelling, other Cardiovascular: Denies: no symptoms, chest pain, edema, irregular heart rate, lightheadedness, palpitations, syncope, other Respiratory: Denies: no symptoms, cough, shortness of breath, SOB with excertion, SOB at rest, sputum, wheezing, other Gastrointestinal/Abdominal: Denies: no symptoms, abdomen distended, abdominal pain, black stools, tarry stools, blood in stool, constipated, diarrhea, difficulty swallowing, nausea, poor appetite, poor fluid intake, rectal bleeding , vomiting, other Genitourinary: Denies: no symptoms, burning, discharge, frequency, flank pain, hematuria, incontinence, pain, urgency, other Neurologic/Psychiatric: Denies: no symptoms, anxiety, depressed, emotional problems, headache, numbness, paresthesia, pre-existing deficit, seizure, tingling, tremors, weakness, other Endocrine: Denies: no symptoms, excessive sweating, flushing, intolerance to cold, intolerance to heat, increased hunger, increased thirst, increased urine, unexplained weight gain, unexplained weight loss, other Hematologic/Lymphatic: Denies: no symptoms, anemia, easy bleeding, easy bruising, adenopathy, other Allergies: Coded Allergies: No Known Allergies (Unverified , 05/28/19) Subjective 06/01 nv, extremely agitated, not allowing labs draws, no night sweats, cbc ordered 06/02 confused, restraints, on abx and plaquenil, hgb 7.9, nrb 15 L 06/03 is with nonrebreather, but not compliant, remains confused 06/05 no bleeding, labs noted, no major bleeding, otherwise comfortable 06/06 labs reviewed, no bleeding, meds noted, no night sweats, on levo and nonrebreather 06/07 labs noted, no bleeding, meds reviewed, no bleeding, wbc higher 06/08 to get 2 units prbc, no night sweats, meds reviewed 06/09 is on cefepime and vanc, labs noted, ernesto Rn, no bleeding 06/10 no major changes, labs reviewed, wbc 28k, on abx, cefepime 06/12 remains in icu, labs noted, no night sweats or bleeding 06/13 sluggish pupils, remains agitated, per psych, no bleding, on vent, wbc sitll high 06/14 still confused, remains on vent, with ng, running nepro, on pressors 06/15 icu, febrile, non verbal, hgb 7.1, blood pending, completed plaq 06/16 remains in the icu, nonverbal, plan for hd tomorrow, ernesto rn 06/17 in icu, on pressor, nonverbal, on abx, no bleeding 06/19 no bleeding, nonverbal in icu, hgb is 7.7 06/20 on zosyn, tube feeds, vent, labs noted, in icu, nv 06/21 gettng hd as per renal, in icu, nv, no bleeding, tfs 06/22 icu, cxr with slight improvement, cooling blanket, weaning today 06/23 wewaning, in icu, on vent, abx, and pressors as needed, labs noted 06/24 failed weaning, off abx, completed plaquenil, hgb 8.1 06/26 icu, weaning for this am, afebrile, hgb 8 06/27 in icu, remains comotose, weaning started on peep, no night sweats 06/28 weaning today, off abx, restraints, no distress, h/h stable 06/29 covid 19+, failed weaning, no blood transfusion needed 06/30 icu, on vent, labs reviewed, no distress 07/01 in icu, may need trach, remains on hd per renal, labs noted 07/02 s/p right fem cath, failed wean, no new orders, h/h stable 07/03 is somewhat more responsive, on abx, no bleeding, weaning and HD today 07/04 hd as per renal, weaning off vent, no bleeding today 07/05 obtunded, no bleding overnight, with hd for tomorrow noted, vanc 07/08 no events, remains with trach/vent, ernesto Rn, no bleeding, cbc is noted 07/09 no overnight events, peg for friday pending consent 07/10 off pressors, vent, restraints, labs reviewed 07/11 no acute events is on pressors, intubated, agitated still 07/12 is resting comfortably, no bleeding, emds reviewed and noted 07/13 icu, no events, trach, cxr reviewed, 07/14 is onv ent, tachypneic and tachycardic, labs noted 07/15 remains confused, intubated, ernesto Rn, no bleeding 07/17 icu, cxr improving infiltrates, levo gtt, airborne/contact isolation 07/18 is on broad spectrum abx, is on levaquin and cefepime, wbc 16 agitated 07/19 icu, levo gtt, cxr unchanged, tachy, hd thursday 07/20 sedated, safety restraints, labs reviewed 07/21 hd was done yesterday, lower pressor requirements, wbc is worse, on abx 07/22 icu, meds and labs reviewed, vent, no distress 07/24 on vent, in icu, labs noted, remains agitated, and confused 07/25 remains obtunded, on vent, on pressor, hgb 9, wbc elev 07/26 icu, levo gtt, vent, iv abx, nonverbal 07/27 failed weaning, labs reviewed, repeat covid swab pending 07/28 labs are noted, no bleeding, on vent/trach gtube feeds dw rn 07/29 iuc, restraints, no new changes, vent 07/31 is asleep, comfortable, no events, labs reviewed, restraints+ 08/01 no events, agitated, no bleeding, meds noted, on gtube feeds 08/02 remains on vent, no bleeding, wbc higher 19, hgb 9, on abx 08/03 labs noted, on vent, no bleeding, wbc 17, hgb better 08/04 labs reviewed, no bleeding, does not require prbc, on vent 08/05 more alert, is on trach, vent, no major events, no bleeding, peg+ 08/07 no bleeding no chills, no night sweats, is on vent/trach 08/08 recent covid swab negative, restraints, cxr unchanged 08/09 c diff negative, zosyn, hd today, gtf 08/10 no overnight events, labs reviewed, afebrile 08/11 labs reviewed, meds noted, no fc, no major changes, wbc 12 /3 abx changed to flucon, on abx, wbc 12 /5 bp on low end, blood cx++, vanc, vent 08/15 no bleeding, no night sweats, on abx, trach/vent 08/16 is able to nod head in response to question, labs noted, on vent/trach 08/17 labs reviewed, hgb 9.8, no bleeding, on abx, meds noted 08/18 labs noted, no bleeding, hgb stable, 9.9, mildly alert 08/19 labs are noted, no bleeding, meds reviewed, line holiday per surg 08/21 labs noted, meds reviewed, no bleeding hgb 8.7 Objective Objective Current Medications Medications (Trade) Dose Ordered Sig/Anthony Route PRN Reason Start Time Stop Time Status Last Admin Dose Admin Acetaminophen (Tylenol) 650 mg Q4H PRN NG For Pain 08/04/19 21:38 09/03/19 21:37 08/22/19 06:36 Acetaminophen (Tylenol) 650 mg Q4H PRN NG Temp >100.5 08/15/19 13:30 09/08/19 08:29 Chlorhexidine Gluconate (Michelle-Hex 2%) 1 applic DAILY@2000 TOPIC 08/21/19 20:00 11/19/19 19:59 08/21/19 20:26 Dextrose (Dextrose 50%) 25 ml Q30M PRN IV Hypoglycemia 08/04/19 22:00 09/18/19 19:29 Dextrose (Dextrose 50%) 50 ml Q30M PRN IV Hypoglycemia 08/04/19 22:00 09/18/19 19:29 Diphenoxylate HCl/ Atropine (Lomotil) 2.5 mg BID ORAL 08/18/19 18:00 09/17/19 17:59 08/22/19 08:30 Enoxaparin Sodium (Lovenox) 30 mg DAILY SUBQ 08/05/19 09:00 08/27/19 08:59 08/20/19 08:32 Epoetin Aftab (Epoetin Aftab(ESRD on dialysis)) 10,000 unit FRI-FRI-FRI SUBQ 08/11/19 21:00 11/09/19 20:59 08/20/19 20:29 Fluconazole (Diflucan) 200 mg DAILY NG 08/13/19 10:24 08/24/19 10:23 08/22/19 08:30 Haloperidol Lactate 5 mg/ Dextrose 56 ml @ 224 mls/hr Q6H PRN IVPB Agitation 08/04/19 21:38 09/18/19 21:37 08/19/19 02:26 Heparin Sodium/ Sodium Chloride (Heparin 1000 units/500ml Premix) 1,000 unit ONCE PRN IV radiology procdure 08/20/19 14:15 08/22/19 13:44 Hydralazine HCl (Apresoline) 10 mg Q4H PRN IV Blood pressure over 160 systol 08/04/19 21:39 11/02/19 21:38 Insulin Aspart (NovoLOG) EVERY 6 HOURS SUBQ 08/05/19 00:00 09/19/19 00:00 08/22/19 12:19 Lidocaine HCl (Xylocaine 1% 30ml) 30 ml ONCE PRN INJ radiology procedure 08/20/19 13:45 08/22/19 13:44 Loperamide HCl (Imodium) 2 mg Q6H NG 08/18/19 14:00 09/15/19 13:59 08/22/19 08:30 Midodrine (Pro-Amatine) 10 mg THREE TIMES A DAY NG 08/15/19 18:00 11/13/19 17:59 08/22/19 08:30 Pantoprazole (Protonix) 40 mg DAILY IVP 08/05/19 09:00 08/26/19 08:59 08/22/19 08:30 Vancomycin HCl (Vanco pharmacy to dose) 1 ea DAILY PRN MISC Per rx protocol 08/15/19 08:45 09/14/19 08:44 Last 24 Hour Vital Signs Date Time Temp Pulse Resp B/P (MAP) Pulse Ox O2 Delivery O2 Flow Rate FiO2 08/22/19 12:16 100 08/22/19 10:56 95 33 30 08/22/19 08:00 30 08/22/19 08:00 99.3 92 26 109/66 (80) 100 08/22/19 08:00 96 08/22/19 08:00 Mechanical Ventilator Mechanical Ventilator 08/22/19 07:20 96 29 30 08/22/19 07:06 99.3 08/22/19 04:00 30 08/22/19 04:00 Mechanical Ventilator Mechanical Ventilator 08/22/19 04:00 98.9 93 26 119/68 (85) 99 08/22/19 03:42 100 08/22/19 03:30 102 32 30 08/22/19 00:00 98.1 89 26 109/57 (74) 99 08/22/19 00:00 Mechanical Ventilator Mechanical Ventilator 08/21/19 23:35 91 08/21/19 23:30 90 32 30 08/21/19 20:00 98.2 100 30 92/59 (70) 100 08/21/19 20:00 30 08/21/19 20:00 Mechanical Ventilator Mechanical Ventilator 08/21/19 19:48 96 08/21/19 19:30 97 35 30 08/21/19 16:00 30 08/21/19 16:00 100.6 103 30 121/72 (88) 100 08/21/19 16:00 Mechanical Ventilator Mechanical Ventilator 08/21/19 16:00 103 08/21/19 15:24 95 29 30 08/21/19 12:00 98.2 87 26 118/69 (85) 100 08/21/19 12:00 102 08/21/19 12:00 30 08/21/19 12:00 Mechanical Ventilator Mechanical Ventilator 08/21/19 11:11 100 08/21/19 11:06 69 34 30 08/21/19 08:00 Mechanical Ventilator Mechanical Ventilator 08/21/19 08:00 80 08/21/19 08:00 30 08/21/19 08:00 98.4 87 30 121/74 (90) 100 08/21/19 07:41 85 31 30 08/21/19 04:00 30 08/21/19 04:00 97.5 85 25 122/76 (91) 100 08/21/19 04:00 Mechanical Ventilator Mechanical Ventilator 08/21/19 03:28 76 08/21/19 02:45 80 29 30 08/21/19 00:00 98.3 83 30 120/65 (83) 100 08/21/19 00:00 Mechanical Ventilator Mechanical Ventilator 08/21/19 00:00 30 08/20/19 23:40 83 08/20/19 22:49 80 28 30 08/20/19 20:00 Mechanical Ventilator Mechanical Ventilator 08/20/19 20:00 78 08/20/19 20:00 98.1 80 30 103/63 (76) 100 08/20/19 20:00 30 08/20/19 18:59 105 28 30 08/20/19 16:00 98.2 97 18 131/79 (96) 100 08/20/19 16:00 104 08/20/19 16:00 Mechanical Ventilator Mechanical Ventilator 08/20/19 16:00 30 08/20/19 15:15 100 08/20/19 15:15 107 32 30 08/20/19 15:13 30 Intake and Output 08/21/19 08/22/19 19:00 07:00 Intake Total 770 ml 540 ml Balance 770 ml 540 ml Free Water 90 ml 60 ml IV Total 200 ml Tube Feeding 480 ml 480 ml # Bowel Movements 5 3 Labs Test 08/19/19 18:23 08/20/19 11:00 08/20/19 11:50 08/20/19 16:42 POC Whole Blood Glucose 196 MG/DL (74-106) 204 MG/DL (74-106) White Blood Count 14.9 K/UL (4.8-10.8) Red Blood Count 3.51 M/UL (4.70-6.10) Hemoglobin 9.8 G/DL (14.2-18.0) Hematocrit 32.9 % (42.0-52.0) Mean Corpuscular Volume 94 FL (80-99) Mean Corpuscular Hemoglobin 27.8 PG (27.0-31.0) Mean Corpuscular Hemoglobin Concent 29.7 G/DL (32.0-36.0) Red Cell Distribution Width 18.5 % (11.6-14.8) Platelet Count 419 K/UL (150-450) Mean Platelet Volume 7.3 FL (6.5-10.1) Neutrophils (%) (Auto) 75.8 % (45.0-75.0) Lymphocytes (%) (Auto) 11.6 % (20.0-45.0) Monocytes (%) (Auto) 7.6 % (1.0-10.0) Eosinophils (%) (Auto) 4.1 % (0.0-3.0) Basophils (%) (Auto) 0.9 % (0.0-2.0) Prothrombin Time 11.2 SEC (9.30-11.50) Prothromb Time International Ratio 1.0 (0.9-1.1) Activated Partial Thromboplast Time 27 SEC (23-33) Sodium Level 137 MMOL/L (136-145) Potassium Level 3.1 MMOL/L (3.5-5.1) Chloride Level 94 MMOL/L (98-107) Carbon Dioxide Level 25 MMOL/L (21-32) Anion Gap 18 mmol/L (5-15) Blood Urea Nitrogen 77 mg/dL (7-18) Creatinine 8.6 MG/DL (0.55-1.30) Estimat Glomerular Filtration Rate 6.2 mL/min (>60) Glucose Level 196 MG/DL (74-106) Calcium Level 9.1 MG/DL (8.5-10.1) Phosphorus Level 5.4 MG/DL (2.5-4.9) Magnesium Level 2.3 MG/DL (1.8-2.4) Total Bilirubin 0.3 MG/DL (0.2-1.0) Aspartate Amino Transf (AST/SGOT) 18 U/L (15-37) Alanine Aminotransferase (ALT/SGPT) 18 U/L (12-78) Alkaline Phosphatase 134 U/L (46-116) C-Reactive Protein, Quantitative 10.0 mg/dL (0.00-0.90) Pro-B-Type Natriuretic Peptide 10814 pg/mL (0-125) Total Protein 8.6 G/DL (6.4-8.2) Albumin 3.2 G/DL (3.4-5.0) Globulin 5.4 g/dL Albumin/Globulin Ratio 0.6 (1.0-2.7) Test 08/20/19 23:42 08/21/19 05:27 08/21/19 05:55 08/21/19 11:42 White Blood Count 12.5 K/UL (4.8-10.8) Red Blood Count 3.28 M/UL (4.70-6.10) Hemoglobin 9.3 G/DL (14.2-18.0) Hematocrit 30.6 % (42.0-52.0) Mean Corpuscular Volume 93 FL (80-99) Mean Corpuscular Hemoglobin 28.3 PG (27.0-31.0) Mean Corpuscular Hemoglobin Concent 30.3 G/DL (32.0-36.0) Red Cell Distribution Width 18.2 % (11.6-14.8) Platelet Count 438 K/UL (150-450) Mean Platelet Volume 6.6 FL (6.5-10.1) Neutrophils (%) (Auto) 75.4 % (45.0-75.0) Lymphocytes (%) (Auto) 10.5 % (20.0-45.0) Monocytes (%) (Auto) 8.3 % (1.0-10.0) Eosinophils (%) (Auto) 4.5 % (0.0-3.0) Basophils (%) (Auto) 1.3 % (0.0-2.0) Sodium Level 133 MMOL/L (136-145) Potassium Level 3.4 MMOL/L (3.5-5.1) Chloride Level 94 MMOL/L (98-107) Carbon Dioxide Level 21 MMOL/L (21-32) Anion Gap 18 mmol/L (5-15) Blood Urea Nitrogen 84 mg/dL (7-18) Creatinine 8.9 MG/DL (0.55-1.30) Estimat Glomerular Filtration Rate 6.0 mL/min (>60) Glucose Level 174 MG/DL (74-106) Calcium Level 9.4 MG/DL (8.5-10.1) Phosphorus Level 5.6 MG/DL (2.5-4.9) Magnesium Level 2.2 MG/DL (1.8-2.4) Total Bilirubin 0.4 MG/DL (0.2-1.0) Aspartate Amino Transf (AST/SGOT) 20 U/L (15-37) Alanine Aminotransferase (ALT/SGPT) 14 U/L (12-78) Alkaline Phosphatase 126 U/L (46-116) Total Protein 8.4 G/DL (6.4-8.2) Albumin 2.8 G/DL (3.4-5.0) Globulin 5.6 g/dL Albumin/Globulin Ratio 0.5 (1.0-2.7) Test 08/21/19 17:25 08/22/19 00:03 08/22/19 05:57 08/22/19 07:50 POC Whole Blood Glucose 222 MG/DL (74-106) 194 MG/DL (74-106) White Blood Count 15.2 K/UL (4.8-10.8) Red Blood Count 3.11 M/UL (4.70-6.10) Hemoglobin 8.7 G/DL (14.2-18.0) Hematocrit 28.3 % (42.0-52.0) Mean Corpuscular Volume 91 FL (80-99) Mean Corpuscular Hemoglobin 28.1 PG (27.0-31.0) Mean Corpuscular Hemoglobin Concent 30.8 G/DL (32.0-36.0) Red Cell Distribution Width 17.5 % (11.6-14.8) Platelet Count 446 K/UL (150-450) Mean Platelet Volume 6.7 FL (6.5-10.1) Neutrophils (%) (Auto) 77.1 % (45.0-75.0) Lymphocytes (%) (Auto) 10.8 % (20.0-45.0) Monocytes (%) (Auto) 8.4 % (1.0-10.0) Eosinophils (%) (Auto) 3.1 % (0.0-3.0) Basophils (%) (Auto) 0.6 % (0.0-2.0) Sodium Level 135 MMOL/L (136-145) Potassium Level 3.7 MMOL/L (3.5-5.1) Chloride Level 94 MMOL/L (98-107) Carbon Dioxide Level 22 MMOL/L (21-32) Anion Gap 19 mmol/L (5-15) Blood Urea Nitrogen 104 mg/dL (7-18) Creatinine 10.3 MG/DL (0.55-1.30) Estimat Glomerular Filtration Rate 5.1 mL/min (>60) Glucose Level 191 MG/DL (74-106) Calcium Level 9.3 MG/DL (8.5-10.1) Test 08/22/19 12:17 POC Whole Blood Glucose 231 MG/DL (74-106) Height (Feet): 6 Height (Inches): 1.00 Weight (Pounds): 172 Objective General: nv, confused, sedated Heent: bilateral eye normal inspection, bilateral eye PERRL ++Ng Respiratory: normal breath sounds, no respiratory distress, intubated/vent +++ trach+++ Cardiovascular: regular rate, rhythm, no edema Gastrointestinal: normal inspection, soft, non-distended, peg+ Rectal: deferred Musculoskeletal: normal range of motion, non-tender, R fem cath++ Neurologic: alert, motor strength/tone normal, sensory intact, responsive, speech normal Skin: Decubitus/Ulcer - See RN skin exam. : jamaal+ Greg Cabral MD Aug 22, 2019 13:01
--- NOTE | 2019-08-22 13:43 | Nephrology Progress Note ---
Assessment/Plan Problem List: (1) CASSANDRA (acute kidney injury) (2) Anemia in chronic kidney disease (CKD) (3) HTN (hypertension) (4) COVID-19 Assessment Acute renal failure most likely superimposed on chronic kidney disease Suspected COVID-19 virus infection Possible Pneumonia, lymphopenia, elevated AST Cardiomegaly, possible CHF COPD Hypertension Anemia, most likely related to chronic kidney disease Plan August 21: A temporary catheter for dialysis was put in yesterday, and the patient is due for dialysis today. Continue per consultants. August 20: Patient due for insertion of a temporary dialysis catheter. I ordered dialysis for tomorrow August 21. Continue per consultants. Discussed with Donna " August 19: Permacath discontinued. Due for temporary non-tunneled dialysis access. White blood cells are up to over 14,000. Will dialyze as needed. August 18: Discussed with ID and general surgery. Will remove the permacath which is thought to be infected by IR today. Will monitor renal parameters. Will obtain surveillance cultures tomorrow. Will attempt to put a temporary dialysis access in 48 to 72 hours for dialysis purposes. August 17: Last dialysis August 15, no blood work done today yet. Will reassess if dialysis should be continued. Continue per current management. We will make arrangement to DC permacath and reinsert a new one via general surgery and or interventional radiology August 16: Albumin for low BP. Continue to monitor renal parameters. August 15: Due for dialysis today. Remains borderline low. No ultrafiltration during dialysis. Discussed with SHANIQUE Macdonald. August 14: No labs done today. Patient hypotensive. Normal saline and albumin bolus given. Midodrin started. Will check lab tomorrow. August 13: Lab reviewed. Last dialysis yesterday. Next dialysis August 15. Potassium and phosphorus supplement given. Continue per consultants. August 12: No can panel done today. Due for dialysis today. Continue per consultants. August 11: Patient labs reviewed. Will order dialysis tomorrow. Continue per consultants. August 10: Patient was dialyzed yesterday. Today's labs checked. Stable from renal standpoint to view August 09: Patient scheduled for hemodialysis today. Will check labs tomorrow. August 08: Lab reviewed. Hemodialysis scheduled for tomorrow. August 07: Dialyzed yesterday. No labs drawn today. Will check labs tomorrow. Continue per consultants. August 06: Patient on dialysis now. Discussed with dialysis nurse. Slight catheter malfunction persist. August 05: Labs reviewed. Dialysis scheduled for tomorrow. Continue per consultants. August 04: No labs done today. Dialyzed yesterday. Check labs tomorrow. Continue per consultants. August 03: Lab reviewed. Due for dialysis today. White blood cell 17,500. August 02: Lab reviewed. Low phosphorus replaced. Hemodialysis ordered for tomorrow. White blood cells over 18,000. August 01: Labs reviewed. Potassium replacement ordered. Remains full code on ventilator via trach. Continue per consultants. July 31: Dialyzed yesterday. No can panel today. Remains full code. Remains on ventilator. Being fed through PEG. Continue per consultants. July 30: Patient due for dialysis today. Labs are reviewed. Remains full code. Status post trach to ventilator. Status post PEG. July 29: Patient dialyzed yesterday. Due for dialysis tomorrow. Remains in ICU. Full code. Status post trach tube to ventilator. Status post PEG. July 28: Due for dialysis today. Labs reviewed. Full code. Patient trached and vented. July 27: Last COVID test negative. COVID test will be repeated tomorrow. Will order dialysis tomorrow. Remains full code. Medication list and labs reviewed. July 26: No labs done today. Dialysis done yesterday. Will check lab tomorrow. Dialysis as needed. July 25: Lab reviewed. Dialysis today. Discussed with RN. July 24: Lab reviewed. Do dialysis tomorrow. Discussed with RN. July 23: Lab reviewed. Dialyzed yesterday. Discussed with RN. Remains full code. Next dialysis July 25. Will check labs tomorrow. July 22: Labs reviewed. Due for dialysis today. Discussed with RN. Watch borderline low blood pressure. Discussed with dialysis nurse. July 21: Today's lab reviewed. Will arrange for dialysis tomorrow. Discussed with RN. Aim to keep the blood pressure above 100 systolic. Continue per consultants. July 20: Patient was dialyzed yesterday. Could not ultrafiltrate much due to low blood pressure. Discussed with SHANIQUE Dick today. No labs drawn today. Continue per consultants. July 19: Due for dialysis today. Discussed with SHANIQUE Dick. Continue per consultants. July 18: Dialyzed July 16. Will order dialysis tomorrow July 19. Continues to be on ventilator through trach. No labs done today. Continue per consultants. July 17: Dialyzed yesterday. Stable from renal standpoint of view. Remains full code. Status post trach on vent. Status post PEG. Continue per consultants. July 16: Dialysis today. Will resume Midodrin to prevent hypotension. Patient remains full code. July 15: Dialyzed yesterday, due for dialysis tomorrow. Labs and medication list reviewed. Continue per consultants. Patient remains full code. COVID-19 detected again. July 14: Patient currently on dialysis. This is continuation of dialysis from yesterday as yesterday's dialysis was cut short due to catheter malfunction. Labs and medication reviewed. Continue per consultants. July 13: Patient currently on hemodialysis. The dialysis catheter which is a intrajugular Kamlesh has poor flow. Will try TPA. Continue per consultants. July 12: Due for PEG today. Due for dialysis tomorrow. Continue per consultants. Discussed with RN. July 11: Plan for dialysis today. Discussed with RN. Data reviewed. July 10: Plan for dialysis tomorrow July 11. Waiting for consent to proceed with PEG. Continue per consultants. Medication reviewed. Labs reviewed. Discussed with RN. July 09: Dialyzed yesterday. Labs reviewed. Medication reviewed. Next hemodialysis July 11. July 08: Patient has tracheostomy now. Connected to ventilator. Due for dialysis today. Continue per consultants. Discussed with SHANIQUE Romero. July 07: Patient is due for tracheostomy today. Patient was last dialyzed July 05. Will order dialysis for tomorrow. July 06: Patient is intubated on ventilator however the plan is to extubate today. Patient was dialysis yesterday July 05. The dialysis time was cut short due to patient's respiratory distress. Only 1 L was removed during dialysis yesterday. Today's lab reviewed. Continue per consultants. Will arrange for dialysis as needed. July 05: Patient due for dialysis today. Remains intubated. Will schedule permacath placement in a.m. blood cultures on July 04 are negative. July 04: Patient was dialyzed yesterday. Due for dialysis tomorrow. Continues to be intubated. After tomorrow's dialysis will order a permacath. July 03: Dialysis is about to be started now Continues to be intubated Will plan to remove the femoral dialysis catheter and exchanged for a new temporary catheter per ID recommendation We will check surveillance blood culture tomorrow July 02: Patient was dialyzed yesterday and due for dialysis tomorrow Stable from renal standpoint W on dialysis Continue per consultants, weaning....... etc. July 01: Dialysis today Other status unchanged June 30: Due for dialysis tomorrow Remains intubated on ventilator Labs and medication reviewed Discussed with RN Stable from renal standpoint of view June 29: Dialyzed yesterday Due for dialysis tomorrow Stable from renal standpoint to view Keeps failing weaning process June 28: Patient due for dialysis today Stable from renal standpoint to view Continue per consultants June 27: Labs reviewed Due due for dialysis June 28 Discussed with SHANIQUE Dick Continue per consultants Remains intubated on ventilator June 26 Labs reviewed Dialyzed yesterday Started on weaning today Continue to monitor renal parameters June 25: On dialysis now Potassium supplement implemented Continue per consultants Next dialysis June 27June 15: Status unchanged Dialyzed yesterday will dialyze again tomorrow Potassium supplements given Discussed with RN June 14: Due dialysis today Status: Remains intubated on ventilator June 13: Status unchanged Dialyzed yesterday and duefordialysistomorrow Serum sodium stable today June 21 Remains intubated on ventilator Due dialysis today Emphasized high sodium bath for dialysis June 20: Remains intubated on ventilator Dialyzed June 19 next dialysis June 21 Serum sodium 128, will give 250 cc 3% saline Remains full code Discussed with RN Iron panel ordered June 19: Discussed with RN. Patient due for dialysis today. Continue pulmonary support. Remains full code. June 18: Patient dialyzed yesterday June 17 Serum sodium improved but still low Arrange for dialysis tomorrow June 19 Continue per consultants June 8: Due for dialysis today Today's lab reviewed, low serum sodium noted, Emphasized on high sodium bath to dialysis nurse Discussed with SHANIQUE Yuen June 7: Dialyzed yesterday Remains intubated Labs reviewed, serum sodium 131 Plan to dialyze tomorrow June 17 with high sodium bath Discussed with SHANIQUE Yuen June 6: Due for dialysis today Labs reviewed Discussed with RN Transfuse 1 unit of packed RBCs today for low hemoglobin of 7.1 June 5: Blood pressure well maintained Receive dialysis June 13 next hemodialysis June 15June 4: Discussed with RN in ICU Patient did not receive proper dialysis yesterday due to dialysis catheter malfunction Catheter to be adjusted today and dialyzed to be resumed today Continue per consultants Positive for COVID 28 June 2: Patient now intubated on mechanical ventilation Discussed with SHANIQUE Yuen, today June 12 Patient received dialysis yesterday June 10 next hemodialysis June 12 Blood pressure better maintained Today's labs reviewed Continue per consultants Previously patient received dialysis last evening June 05, next dialysis June 07 which was incomplete due to patient's hypotension Will start on midodrine for blood pressure support. Meanwhile continue other pressors as needed Previously Patient is doing poorly, septic, white blood cells are rising, Hypotension somewhat improved We will keep n.p.o. , NG tube for medications, and change medication to IV as needed Patient remains full code Monitor vancomycin level Previously: Patient pulled out his femoral catheter yesterday June 03 which was reinserted by Dr. Mast Patient scheduled for dialysis again June 04, which again was not done due to dialysis nurse citing catheter malfunction Meanwhile continue management per ID, pulmonary , and psych. Meanwhile white blood cell count is rising. Patient blood pressure borderline low. Will check ABG Previously May 31 : I believe patient need dialysis treatment He however needs to competency assessment if can make decisions or not I will communicate with Dr. Mulligan Previously: Per pulmonary and ID advice Adjust blood pressure medication Renal diet Anemia work-up 2D echocardiogram refused Kidney ultrasound refused Jules catheter Urine studies Per orders Subjective ROS Limited/Unobtainable: Yes Objective Objective Last 24 Hour Vital Signs Date Time Temp Pulse Resp B/P (MAP) Pulse Ox O2 Delivery O2 Flow Rate FiO2 08/22/19 12:16 100 08/22/19 12:00 96 08/22/19 10:56 95 33 30 08/22/19 08:00 30 08/22/19 08:00 99.3 92 26 109/66 (80) 100 08/22/19 08:00 96 08/22/19 08:00 Mechanical Ventilator Mechanical Ventilator 08/22/19 07:20 96 29 30 08/22/19 07:06 99.3 08/22/19 04:00 30 08/22/19 04:00 Mechanical Ventilator Mechanical Ventilator 08/22/19 04:00 98.9 93 26 119/68 (85) 99 08/22/19 03:42 100 08/22/19 03:30 102 32 30 08/22/19 00:00 98.1 89 26 109/57 (74) 99 08/22/19 00:00 Mechanical Ventilator Mechanical Ventilator 08/21/19 23:35 91 08/21/19 23:30 90 32 30 08/21/19 20:00 98.2 100 30 92/59 (70) 100 08/21/19 20:00 30 08/21/19 20:00 Mechanical Ventilator Mechanical Ventilator 08/21/19 19:48 96 08/21/19 19:30 97 35 30 08/21/19 16:00 30 08/21/19 16:00 100.6 103 30 121/72 (88) 100 08/21/19 16:00 Mechanical Ventilator Mechanical Ventilator 08/21/19 16:00 103 08/21/19 15:24 95 29 30 Intake and Output 08/21/19 08/22/19 19:00 07:00 Intake Total 770 ml 540 ml Balance 770 ml 540 ml Free Water 90 ml 60 ml IV Total 200 ml Tube Feeding 480 ml 480 ml # Bowel Movements 5 3 Laboratory Tests 08/21/19 17:25: POC Whole Blood Glucose [Pending] 08/22/19 00:03: POC Whole Blood Glucose 222H 08/22/19 05:57: POC Whole Blood Glucose 194H 08/22/19 07:50: White Blood Count 15.2H, Red Blood Count 3.11L, Hemoglobin 8.7L, Hematocrit 28.3L, Mean Corpuscular Volume 91, Mean Corpuscular Hemoglobin 28.1, Mean Corpuscular Hemoglobin Concent 30.8L, Red Cell Distribution Width 17.5H, Platelet Count 446, Mean Platelet Volume 6.7, Neutrophils (%) (Auto) 77.1H, Lymphocytes (%) (Auto) 10.8L, Monocytes (%) (Auto) 8.4, Eosinophils (%) (Auto) 3.1H, Basophils (%) (Auto) 0.6, Sodium Level 135L, Potassium Level 3.7, Chloride Level 94L, Carbon Dioxide Level 22, Anion Gap 19H, Blood Urea Nitrogen 104H, Creatinine 10.3H, Estimat Glomerular Filtration Rate 5.1, Glucose Level 191H, Calcium Level 9.3 08/22/19 12:17: POC Whole Blood Glucose 231H Height (Feet): 6 Height (Inches): 1.00 Weight (Pounds): 172 General Appearance: no apparent distress EENT: other - Trach to vent Cardiovascular: tachycardia Respiratory/Chest: decreased breath sounds Abdomen: other - PEG Objective No change Mic Cole MD Aug 22, 2019 13:43
[2019-08-22 16:00] VITALS: BP 143/68
[2019-08-22 20:00] VITALS: BP 92/52
[2019-08-22] MEDS: Dyna-Hex 2% Top Sol 2oz TOPIC SCH (20:01)
--- NOTE | 2019-08-22 22:22 | Pulmonolgy Critical Care Note ---
Critical Care - Asmt/Plan Assessment/Plan: Pulmonary Progress Note HPI: Patient is a 68 year old man, custodial resident, admitted c/o shortness of breath, cough, noted to have Covid 19 Pneumonia, Respiratory Failure Remains on Ventilator, CXR infiltrates stable 08/20 Anemia CKD on HD, Intemittent hypotension, prn albumin, beta sonia being held, on Mitodrine, will need eventual placement, second consecutive repeat COVID19 test negative Preserved EF FIO2 30%, P5, adequate O2 sats, remains on ACVC, tolerating CPAP PS 8 day, s/p Tracheostomy previously, sp PEG, sp HD line insertion ID following MRSA sputum Reviewed earlier Past Medical History: COPD, CKD, Hypertension, Anemia Allergies: No Known Allergies Improving Pulmonary Status on HD Physical Exam Vital Signs Noted Stable on ventilator Chronically ill appearing HEENT: Trach CDI Chest: CTAB Hreart: HS1, HS2, RRR Abdomen: SNTND, Gtube Extremities: Wasted, no edema [employer]:No focal signs Impression: COVID-19 virus infection - now Covid negative Pneumonia Respiratory failure on ventilator, wean as tolerated CKD - on HD Previous NSTEMI Hypotension resolved Cardiomegaly Fungemia MRSA sputum COPD Chronic Kidney Disease - HD H/o Hypertension Anemia Plan: trach care as is Antibiotics per ID HD per renal monitor vitals AC - wean as tolerated anxiolytics if needed 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 PRN Monitor lab data nutrition feeds Hemodialysis per Renal, currently on line holiday impression, plan, and exam edited and reviewed in detail care discussed with RN Laboratory Tests Noted: CXR: No acute changes Subjective ROS Limited/Unobtainable: Yes Allergies: Coded Allergies: No Known Allergies (Unverified , 05/28/19) Critical Care - Objective Last 24 Hour Vital Signs Date Time Temp Pulse Resp B/P (MAP) Pulse Ox O2 Delivery O2 Flow Rate FiO2 08/22/19 20:00 Mechanical Ventilator Mechanical Ventilator 08/22/19 20:00 99.9 101 24 92/52 (65) 100 08/22/19 20:00 30 08/22/19 19:59 107 08/22/19 19:23 107 26 30 08/22/19 18:10 101.3 103 24 100 08/22/19 17:56 101.3 08/22/19 17:26 101.5 110 24 100 08/22/19 16:00 Mechanical Ventilator Mechanical Ventilator 08/22/19 16:00 103 08/22/19 16:00 97.7 111 24 143/68 (93) 100 08/22/19 16:00 30 08/22/19 15:25 105 31 30 08/22/19 12:16 100 08/22/19 12:00 Mechanical Ventilator Mechanical Ventilator 08/22/19 12:00 30 08/22/19 12:00 96 08/22/19 12:00 97.9 97 24 112/71 (85) 100 08/22/19 10:56 95 33 30 08/22/19 08:00 30 08/22/19 08:00 99.3 92 26 109/66 (80) 100 08/22/19 08:00 96 08/22/19 08:00 Mechanical Ventilator Mechanical Ventilator 08/22/19 07:20 96 29 30 08/22/19 07:06 99.3 08/22/19 04:00 30 08/22/19 04:00 Mechanical Ventilator Mechanical Ventilator 08/22/19 04:00 98.9 93 26 119/68 (85) 99 08/22/19 03:42 100 08/22/19 03:30 102 32 30 08/22/19 00:00 98.1 89 26 109/57 (74) 99 08/22/19 00:00 Mechanical Ventilator Mechanical Ventilator 08/21/19 23:35 91 08/21/19 23:30 90 32 30 Accucheck: 340 Critical Care - Subjective ROS Limited/Unobtainable: Yes FI02: 30 Vent Support Breath Rate: 26 Vent Support Mode: AC Vent Tidal Volume: 500 Sputum Amount: Moderate PEEP: 5.0 PIP: 29 Tube Feeding Amount: 40 I&O: Intake and Output 08/21/19 08/22/19 19:00 07:00 Intake Total 770 ml 540 ml Balance 770 ml 540 ml Free Water 90 ml 60 ml IV Total 200 ml Tube Feeding 480 ml 480 ml # Bowel Movements 5 3 ET-Tube: 7.5 ET Position: 24 Arturo Mckeon MD Aug 22, 2019 22:22
[2019-08-23] VITALS (7 sets, daily range): BP systolic 89–130; BP diastolic 50–67
[2019-08-23] MEDS: NovoLOG Insulin Flexpen SUBQ SCH ×4 (05:34→23:19)
[2019-08-23] MEDS: Acetaminophen 650mg/20.3ml NG PRN ×3 (05:34→23:24)
[2019-08-23 06:57] LABS: EOSINOPHILS % (AUTO) 2.6 % (0.0-3.0); HEMATOCRIT 27.9 % (42.0-52.0); HEMOGLOBIN 8.4 G/DL (14.2-18.0); LYMPHOCYTES % (AUTO) 10.4 % (20.0-45.0); MEAN CORPUSCULAR VOLUME 92 FL (80-99); NEUTROPHILS % (AUTO) 76.1 % (45.0-75.0); PLATELET COUNT 397 K/UL (150-450); RED BLOOD COUNT 3.04 M/UL (4.70-6.10); RED CELL DISTRIBUTION WIDTH 17.8 % (11.6-14.8); WHITE BLOOD COUNT 11.9 K/UL (4.8-10.8)
[2019-08-23 07:11] LABS: ALANINE AMINOTRANSFERASE 10 U/L (12-78); ALBUMIN 2.5 G/DL (3.4-5.0); ALBUMIN/GLOBULIN RATIO 0.5 (1.0-2.7); ALKALINE PHOSPHATASE 103 U/L (46-116); ASPARTATE AMINO TRANSFERASE 15 U/L (15-37); BILIRUBIN,TOTAL 0.4 MG/DL (0.2-1.0); BLOOD UREA NITROGEN 57 mg/dL (7-18); CALCIUM 8.6 MG/DL (8.5-10.1); CARBON DIOXIDE 27 MMOL/L (21-32); CHLORIDE 100 MMOL/L (98-107); CREATININE 6.4 MG/DL (0.55-1.30); POTASSIUM 3.1 MMOL/L (3.5-5.1); SODIUM 142 MMOL/L (136-145)
[2019-08-23 08:34] LABS: PHOSPHORUS 3.9 MG/DL (2.5-4.9)
[2019-08-23] MEDS: Fluconazole 100mg tab NG SCH (09:00)
[2019-08-23] MEDS: Pantoprazole Inj IVP SCH (09:00)
[2019-08-23] MEDS: Enoxaparin 30mg Inj SUBQ SCH (09:00)
[2019-08-23] MEDS: Midodrine 10mg tab NG SCH ×3 (09:01→17:19)
[2019-08-23] MEDS: Lomotil 2.5mg tab ORAL SCH ×2 (09:01→17:20)
[2019-08-23] MEDS ORDERED: NS 275ml ONE (09:10)
--- NOTE | 2019-08-23 09:21 | Nephrology Progress Note ---
Assessment/Plan Problem List: (1) CASSANDRA (acute kidney injury) (2) Anemia in chronic kidney disease (CKD) (3) HTN (hypertension) (4) COVID-19 Assessment Acute renal failure most likely superimposed on chronic kidney disease Suspected COVID-19 virus infection Possible Pneumonia, lymphopenia, elevated AST Cardiomegaly, possible CHF COPD Hypertension Anemia, most likely related to chronic kidney disease Plan August 22: Patient was dialyzed yesterday. Pressure low today. 500 cc albumin ordered. Continue to monitor renal parameters. Continue to be on Midodrin. August 21: A temporary catheter for dialysis was put in yesterday, and the patient is due for dialysis today. Continue per consultants. August 20: Patient due for insertion of a temporary dialysis catheter. I ordered dialysis for tomorrow August 21. Continue per consultants. Discussed with Donna " August 19: Permacath discontinued. Due for temporary non-tunneled dialysis access. White blood cells are up to over 14,000. Will dialyze as needed. August 18: Discussed with ID and general surgery. Will remove the permacath which is thought to be infected by IR today. Will monitor renal parameters. Will obtain surveillance cultures tomorrow. Will attempt to put a temporary dialysis access in 48 to 72 hours for dialysis purposes. August 17: Last dialysis August 15, no blood work done today yet. Will reassess if dialysis should be continued. Continue per current management. We will make arrangement to DC permacath and reinsert a new one via general surgery and or interventional radiology August 16: Albumin for low BP. Continue to monitor renal parameters. August 15: Due for dialysis today. Remains borderline low. No ultrafiltration during dialysis. Discussed with SHANIQUE Macdonald. August 14: No labs done today. Patient hypotensive. Normal saline and albumin bolus given. Midodrin started. Will check lab tomorrow. August 13: Lab reviewed. Last dialysis yesterday. Next dialysis August 15. Potassium and phosphorus supplement given. Continue per consultants. August 12: No can panel done today. Due for dialysis today. Continue per consultants. August 11: Patient labs reviewed. Will order dialysis tomorrow. Continue per consultants. August 10: Patient was dialyzed yesterday. Today's labs checked. Stable from renal standpoint to view August 09: Patient scheduled for hemodialysis today. Will check labs tomorrow. August 08: Lab reviewed. Hemodialysis scheduled for tomorrow. August 07: Dialyzed yesterday. No labs drawn today. Will check labs tomorrow. Continue per consultants. August 06: Patient on dialysis now. Discussed with dialysis nurse. Slight catheter malfunction persist. August 05: Labs reviewed. Dialysis scheduled for tomorrow. Continue per consultants. August 04: No labs done today. Dialyzed yesterday. Check labs tomorrow. Continue per consultants. August 03: Lab reviewed. Due for dialysis today. White blood cell 17,500. August 02: Lab reviewed. Low phosphorus replaced. Hemodialysis ordered for tomorrow. White blood cells over 18,000. August 01: Labs reviewed. Potassium replacement ordered. Remains full code on ventilator via trach. Continue per consultants. July 31: Dialyzed yesterday. No can panel today. Remains full code. Remains on ventilator. Being fed through PEG. Continue per consultants. July 30: Patient due for dialysis today. Labs are reviewed. Remains full code. Status post trach to ventilator. Status post PEG. July 29: Patient dialyzed yesterday. Due for dialysis tomorrow. Remains in ICU. Full code. Status post trach tube to ventilator. Status post PEG. July 28: Due for dialysis today. Labs reviewed. Full code. Patient trached and vented. July 27: Last COVID test negative. COVID test will be repeated tomorrow. Will order dialysis tomorrow. Remains full code. Medication list and labs reviewed. July 26: No labs done today. Dialysis done yesterday. Will check lab tomorrow. Dialysis as needed. July 25: Lab reviewed. Dialysis today. Discussed with RN. July 24: Lab reviewed. Do dialysis tomorrow. Discussed with RN. July 23: Lab reviewed. Dialyzed yesterday. Discussed with RN. Remains full code. Next dialysis July 25. Will check labs tomorrow. July 22: Labs reviewed. Due for dialysis today. Discussed with RN. Watch borderline low blood pressure. Discussed with dialysis nurse. July 21: Today's lab reviewed. Will arrange for dialysis tomorrow. Discussed with RN. Aim to keep the blood pressure above 100 systolic. Continue per consultants. July 20: Patient was dialyzed yesterday. Could not ultrafiltrate much due to low blood pressure. Discussed with SHANIQUE Dick today. No labs drawn today. Continue per consultants. Mackenzie 9: Due for dialysis today. Discussed with SHANIQUE Dick. Continue per consultants. July 18: Dialyzed July 16. Will order dialysis tomorrow July 19. Continues to be on ventilator through trach. No labs done today. Continue per consultants. July 17: Dialyzed yesterday. Stable from renal standpoint of view. Remains full code. Status post trach on vent. Status post PEG. Continue per consultants. July 16: Dialysis today. Will resume Midodrin to prevent hypotension. Patient remains full code. July 15: Dialyzed yesterday, due for dialysis tomorrow. Labs and medication list reviewed. Continue per consultants. Patient remains full code. COVID-19 detected again. July 14: Patient currently on dialysis. This is continuation of dialysis from yesterday as yesterday's dialysis was cut short due to catheter malfunction. Labs and medication reviewed. Continue per consultants. July 13: Patient currently on hemodialysis. The dialysis catheter which is a intrajugular Kamlesh has poor flow. Will try TPA. Continue per consultants. July 12: Due for PEG today. Due for dialysis tomorrow. Continue per consultants. Discussed with RN. July 11: Plan for dialysis today. Discussed with RN. Data reviewed. July 10: Plan for dialysis tomorrow July 11. Waiting for consent to proceed with PEG. Continue per consultants. Medication reviewed. Labs reviewed. Discussed with RN. July 09: Dialyzed yesterday. Labs reviewed. Medication reviewed. Next hemodialysis July 11. July 08: Patient has tracheostomy now. Connected to ventilator. Due for dialysis today. Continue per consultants. Discussed with SHANIQUE Romero. July 07: Patient is due for tracheostomy today. Patient was last dialyzed July 05. Will order dialysis for tomorrow. July 06: Patient is intubated on ventilator however the plan is to extubate today. Patient was dialysis yesterday July 05. The dialysis time was cut short due to patient's respiratory distress. Only 1 L was removed during dialysis yesterday. Today's lab reviewed. Continue per consultants. Will arrange for dialysis as needed. July 05: Patient due for dialysis today. Remains intubated. Will schedule permacath placement in a.m. blood cultures on July 04 are negative. July 04: Patient was dialyzed yesterday. Due for dialysis tomorrow. Continues to be intubated. After tomorrow's dialysis will order a permacath. July 03: Dialysis is about to be started now Continues to be intubated Will plan to remove the femoral dialysis catheter and exchanged for a new temporary catheter per ID recommendation We will check surveillance blood culture tomorrow July 02: Patient was dialyzed yesterday and due for dialysis tomorrow Stable from renal standpoint W on dialysis Continue per consultants, weaning....... etc. July 01: Dialysis today Other status unchanged June 30: Due for dialysis tomorrow Remains intubated on ventilator Labs and medication reviewed Discussed with RN Stable from renal standpoint of view June 29: Dialyzed yesterday Due for dialysis tomorrow Stable from renal standpoint to view Keeps failing weaning process June 28: Patient due for dialysis today Stable from renal standpoint to view Continue per consultants June 27: Labs reviewed Due due for dialysis June 28 Discussed with SHANIQUE Silverman per consultants Remains intubated on ventilator June 26 Labs reviewed Dialyzed yesterday Started on weaning today Continue to monitor renal parameters June 25: On dialysis now Potassium supplement implemented Continue per consultants Next dialysis June 27June 15: Status unchanged Dialyzed yesterday will dialyze again tomorrow Potassium supplements given Discussed with RN June 14: Due dialysis today Status: Remains intubated on ventilator June 13: Status unchanged Dialyzed yesterday and duefordialysistomorrow Serum sodium stable today June 21 Remains intubated on ventilator Due dialysis today Emphasized high sodium bath for dialysis June 20: Remains intubated on ventilator Dialyzed June 19 next dialysis June 21 Serum sodium 128, will give 250 cc 3% saline Remains full code Discussed with RN Iron panel ordered June 19: Discussed with RN. Patient due for dialysis today. Continue pulmonary support. Remains full code. June 18: Patient dialyzed yesterday June 17 Serum sodium improved but still low Arrange for dialysis tomorrow June 19 Continue per consultants June 17: Due for dialysis today Today's lab reviewed, low serum sodium noted, Emphasized on high sodium bath to dialysis nurse Discussed with SHANIQUE Yuen June 16: Dialyzed yesterday Remains intubated Labs reviewed, serum sodium 131 Plan to dialyze tomorrow June 17 with high sodium bath Discussed with SHANIQUE Yuen June 6: Due for dialysis today Labs reviewed Discussed with RN Transfuse 1 unit of packed RBCs today for low hemoglobin of 7.1 June 5: Blood pressure well maintained Receive dialysis May 4 next hemodialysis June 15June 4: Discussed with RN in ICU Patient did not receive proper dialysis yesterday due to dialysis catheter malfunction Catheter to be adjusted today and dialyzed to be resumed today Continue per consultants Positive for COVID 28 June 2: Patient now intubated on mechanical ventilation Discussed with RN Alpa, today June 12 Patient received dialysis yesterday June 10 next hemodialysis June 12 Blood pressure better maintained Today's labs reviewed Continue per consultants Previously patient received dialysis last evening June 05, next dialysis June 07 which was incomplete due to patient's hypotension Will start on midodrine for blood pressure support. Meanwhile continue other pressors as needed Previously Patient is doing poorly, septic, white blood cells are rising, Hypotension somewhat improved We will keep n.p.o. , NG tube for medications, and change medication to IV as needed Patient remains full code Monitor vancomycin level Previously: Patient pulled out his femoral catheter yesterday June 03 which was reinserted by Dr. Mast Patient scheduled for dialysis again June 04, which again was not done due to dialysis nurse citing catheter malfunction Meanwhile continue management per ID, pulmonary , and psych. Meanwhile white blood cell count is rising. Patient blood pressure borderline low. Will check ABG Previously May 31 : I believe patient need dialysis treatment He however needs to competency assessment if can make decisions or not I will communicate with Dr. Mulligan Previously: Per pulmonary and ID advice Adjust blood pressure medication Renal diet Anemia work-up 2D echocardiogram refused Kidney ultrasound refused Jules catheter Urine studies Per orders Subjective ROS Limited/Unobtainable: Yes Objective Objective Last 24 Hour Vital Signs Date Time Temp Pulse Resp B/P (MAP) Pulse Ox O2 Delivery O2 Flow Rate FiO2 08/23/19 07:15 99 29 30 08/23/19 06:46 98.6 92 24 104/59 (74) 100 08/23/19 04:00 30 08/23/19 04:00 98.4 97 24 114/62 (79) 100 08/23/19 04:00 Mechanical Ventilator Mechanical Ventilator 08/23/19 03:34 94 26 30 08/23/19 03:30 85 08/23/19 00:00 95 08/23/19 00:00 Mechanical Ventilator Mechanical Ventilator 08/23/19 00:00 99.1 100 24 89/50 (63) 99 08/22/19 23:54 100 34 30 7/12/20 20:00 Mechanical Ventilator Mechanical Ventilator 08/22/19 20:00 99.9 101 24 92/52 (65) 100 08/22/19 20:00 30 08/22/19 19:59 107 08/22/19 19:23 107 26 30 08/22/19 18:10 101.3 103 24 100 08/22/19 17:56 101.3 08/22/19 17:26 101.5 110 24 100 08/22/19 16:00 Mechanical Ventilator Mechanical Ventilator 08/22/19 16:00 103 08/22/19 16:00 97.7 111 24 143/68 (93) 100 08/22/19 16:00 30 08/22/19 15:25 105 31 30 08/22/19 12:16 100 08/22/19 12:00 Mechanical Ventilator Mechanical Ventilator 08/22/19 12:00 30 08/22/19 12:00 96 08/22/19 12:00 97.9 97 24 112/71 (85) 100 08/22/19 10:56 95 33 30 Intake and Output 08/22/19 08/23/19 19:00 07:00 Intake Total 570 ml 570 ml Output Total 1000 ml Balance -430 ml 570 ml Free Water 90 ml 90 ml Tube Feeding 480 ml 480 ml Hemodialysis UF 1000 ml # Voids 1 # Bowel Movements 4 5 Laboratory Tests 08/22/19 12:17: POC Whole Blood Glucose 231H 08/22/19 17:27: POC Whole Blood Glucose [Pending] 08/22/19 22:59: POC Whole Blood Glucose 187H 08/23/19 05:32: POC Whole Blood Glucose [Pending] 08/23/19 06:13: White Blood Count 11.9H, Red Blood Count 3.04L, Hemoglobin 8.4L, Hematocrit 27.9L, Mean Corpuscular Volume 92, Mean Corpuscular Hemoglobin 27.7, Mean Corpuscular Hemoglobin Concent 30.2L, Red Cell Distribution Width 17.8H, Platelet Count 397, Mean Platelet Volume 6.9, Neutrophils (%) (Auto) 76.1H, Lymphocytes (%) (Auto) 10.4L, Monocytes (%) (Auto) 10.0, Eosinophils (%) (Auto) 2.6, Basophils (%) (Auto) 1.0, Sodium Level 142, Potassium Level 3.1L, Chloride Level 100, Carbon Dioxide Level 27, Blood Urea Nitrogen 57H, Creatinine 6.4H, Estimat Glomerular Filtration Rate 8.8, Glucose Level 241H, Calcium Level 8.6, Phosphorus Level 3.9, Magnesium Level 2.0, Total Bilirubin 0.4, Aspartate Amino Transf (AST/SGOT) 15, Alanine Aminotransferase (ALT/SGPT) 10L, Alkaline Phosphatase 103, Total Protein 7.9, Albumin 2.5L, Globulin 5.4, Albumin/ Globulin Ratio 0.5L, Random Vancomycin Level 15.9 Height (Feet): 6 Height (Inches): 1.00 Weight (Pounds): 173 General Appearance: no apparent distress EENT: other - Trach to vent Cardiovascular: tachycardia Respiratory/Chest: decreased breath sounds Abdomen: distended Objective No change Mic Cole MD Aug 23, 2019 09:21
[2019-08-23] MEDS ORDERED: Vancomycin 500mg/D5W 110ml IVPB ONE ×2 (10:00)
--- NOTE | 2019-08-23 10:45 | General Progress Note ---
Assessment/Plan Status: unchanged Assessment/Plan: 1. Diabetes. 2. Hypertension. 3. Coronary artery disease. 4. COPD. 5. Psychiatric disorder with schizophrenia. 6. History of hepatitis C. 7. HLP. 8. Chronic kidney disease, now with acute renal failure. 9. Anemia. 10. Hypothyroidism. 11. Spinal stenosis. 12. Constipation. 13. GERD. 14. COVID positive HD per nephrology fu labs s/p PEG GTF TF at 40 cc imodium lomotil neg C.diff off reglan monitor for residuals Subjective ROS Limited/Unobtainable: No Allergies: Coded Allergies: No Known Allergies (Unverified , 05/28/19) Objective Last 24 Hour Vital Signs Date Time Temp Pulse Resp B/P (MAP) Pulse Ox O2 Delivery O2 Flow Rate FiO2 08/23/19 07:15 99 29 30 08/23/19 06:46 98.6 92 24 104/59 (74) 100 08/23/19 04:00 30 08/23/19 04:00 98.4 97 24 114/62 (79) 100 08/23/19 04:00 Mechanical Ventilator Mechanical Ventilator 08/23/19 03:34 94 26 30 08/23/19 03:30 85 08/23/19 00:00 95 08/23/19 00:00 Mechanical Ventilator Mechanical Ventilator 08/23/19 00:00 99.1 100 24 89/50 (63) 99 08/22/19 23:54 100 34 30 08/22/19 20:00 Mechanical Ventilator Mechanical Ventilator 08/22/19 20:00 99.9 101 24 92/52 (65) 100 08/22/19 20:00 30 08/22/19 19:59 107 08/22/19 19:23 107 26 30 08/22/19 18:10 101.3 103 24 100 08/22/19 17:56 101.3 08/22/19 17:26 101.5 110 24 100 08/22/19 16:00 Mechanical Ventilator Mechanical Ventilator 08/22/19 16:00 103 08/22/19 16:00 97.7 111 24 143/68 (93) 100 08/22/19 16:00 30 08/22/19 15:25 105 31 30 08/22/19 12:16 100 08/22/19 12:00 Mechanical Ventilator Mechanical Ventilator 08/22/19 12:00 30 08/22/19 12:00 96 08/22/19 12:00 97.9 97 24 112/71 (85) 100 08/22/19 10:56 95 33 30 Intake and Output 08/22/19 08/23/19 19:00 07:00 Intake Total 570 ml 570 ml Output Total 1000 ml Balance -430 ml 570 ml Free Water 90 ml 90 ml Tube Feeding 480 ml 480 ml Hemodialysis UF 1000 ml # Voids 1 # Bowel Movements 4 5 Laboratory Tests 08/22/19 12:17: POC Whole Blood Glucose 231H 08/22/19 17:27: POC Whole Blood Glucose [Pending] 08/22/19 22:59: POC Whole Blood Glucose 187H 08/23/19 05:32: POC Whole Blood Glucose [Pending] 08/23/19 06:13: White Blood Count 11.9H, Red Blood Count 3.04L, Hemoglobin 8.4L, Hematocrit 27.9L, Mean Corpuscular Volume 92, Mean Corpuscular Hemoglobin 27.7, Mean Corpuscular Hemoglobin Concent 30.2L, Red Cell Distribution Width 17.8H, Platelet Count 397, Mean Platelet Volume 6.9, Neutrophils (%) (Auto) 76.1H, Lymphocytes (%) (Auto) 10.4L, Monocytes (%) (Auto) 10.0, Eosinophils (%) (Auto) 2.6, Basophils (%) (Auto) 1.0, Sodium Level 142, Potassium Level 3.1L, Chloride Level 100, Carbon Dioxide Level 27, Blood Urea Nitrogen 57H, Creatinine 6.4H, Estimat Glomerular Filtration Rate 8.8, Glucose Level 241H, Calcium Level 8.6, Phosphorus Level 3.9, Magnesium Level 2.0, Total Bilirubin 0.4, Aspartate Amino Transf (AST/SGOT) 15, Alanine Aminotransferase (ALT/SGPT) 10L, Alkaline Phosphatase 103, Total Protein 7.9, Albumin 2.5L, Globulin 5.4, Albumin/ Globulin Ratio 0.5L, Random Vancomycin Level 15.9 Height (Feet): 6 Height (Inches): 1.00 Weight (Pounds): 173 General Appearance: lethargic EENT: normal ENT inspection Neck: supple Cardiovascular: tachycardia Respiratory/Chest: decreased breath sounds Abdomen: soft, hypoactive bowel sounds Extremities: non-tender Marito Ramires MD Aug 23, 2019 10:45
--- NOTE | 2019-08-23 10:51 | Infectious Diseases Prog Note ---
Assessment/Plan Assessment/Plan IMPRESSION: 1. COVID19 pneumonia Positive: 05/27, 05/31 , 06/05, 06/09 ,5, 06/19, 06/23, 06/27, 07/03, 07/15, 07/29 Negative: 07/26, 08/04, 08/05 2. MRSA carrier. 3. Chronic kidney disease , end-stage renal disease. 4. COPD. 5. Hypertension. 6. Anemia. 7. Hypothyroidism. 8. Hyperlipidemia. 9. Major depression. 10. Leukocytosis 11. Hypotension 12. Hepatitis C 13. Hyperuricemia 14. Diarrhea, C difficile negative 15. septic shock 16.Sepsis blood cultures 08/08 & 08/12 : yeast blood culture: Staph Coagulase negative 17. Pneumonia with Staph aureus ( MRSA) 18. Candidal sepsis 19. Diarrhea, C. difficile negative RECOMMENDATIONS: continue Fluconazole & Vancomycin Repeat blood culture Repeat CXR Subjective ROS Limited/Unobtainable: Yes Constitutional: Reports: fever Allergies: Coded Allergies: No Known Allergies (Unverified , 05/28/19) Objective Last 24 Hour Vital Signs Date Time Temp Pulse Resp B/P (MAP) Pulse Ox O2 Delivery O2 Flow Rate FiO2 08/23/19 07:15 99 29 30 08/23/19 06:46 98.6 92 24 104/59 (74) 100 08/23/19 04:00 30 08/23/19 04:00 98.4 97 24 114/62 (79) 100 08/23/19 04:00 Mechanical Ventilator Mechanical Ventilator 08/23/19 03:34 94 26 30 08/23/19 03:30 85 08/23/19 00:00 95 08/23/19 00:00 Mechanical Ventilator Mechanical Ventilator 08/23/19 00:00 99.1 100 24 89/50 (63) 99 08/22/19 23:54 100 34 30 08/22/19 20:00 Mechanical Ventilator Mechanical Ventilator 08/22/19 20:00 99.9 101 24 92/52 (65) 100 08/22/19 20:00 30 08/22/19 19:59 107 08/22/19 19:23 107 26 30 08/22/19 18:10 101.3 103 24 100 08/22/19 17:56 101.3 08/22/19 17:26 101.5 110 24 100 08/22/19 16:00 Mechanical Ventilator Mechanical Ventilator 08/22/19 16:00 103 08/22/19 16:00 97.7 111 24 143/68 (93) 100 08/22/19 16:00 30 08/22/19 15:25 105 31 30 08/22/19 12:16 100 08/22/19 12:00 Mechanical Ventilator Mechanical Ventilator 08/22/19 12:00 30 08/22/19 12:00 96 08/22/19 12:00 97.9 97 24 112/71 (85) 100 08/22/19 10:56 95 33 30 Height (Feet): 6 Height (Inches): 1.00 Weight (Pounds): 173 HEENT: status post trach Respiratory/Chest: lungs clear, other - onventilator Cardiovascular: normal rate, other - Temporary HD line Abdomen: soft, non tender, other - GT feeding Extremities: no edema Neurologic/Psychiatric: alert, responsive Laboratory Tests Test 08/22/19 12:17 08/22/19 17:27 08/22/19 22:59 08/23/19 05:32 POC Whole Blood Glucose 231 MG/DL (74-106) H Pending 187 MG/DL (74-106) H Pending Test 08/23/19 06:13 White Blood Count 11.9 K/UL (4.8-10.8) H Red Blood Count 3.04 M/UL (4.70-6.10) L Hemoglobin 8.4 G/DL (14.2-18.0) L Hematocrit 27.9 % (42.0-52.0) L Mean Corpuscular Volume 92 FL (80-99) Mean Corpuscular Hemoglobin 27.7 PG (27.0-31.0) Mean Corpuscular Hemoglobin Concent 30.2 G/DL (32.0-36.0) L Red Cell Distribution Width 17.8 % (11.6-14.8) H Platelet Count 397 K/UL (150-450) Mean Platelet Volume 6.9 FL (6.5-10.1) Neutrophils (%) (Auto) 76.1 % (45.0-75.0) H Lymphocytes (%) (Auto) 10.4 % (20.0-45.0) L Monocytes (%) (Auto) 10.0 % (1.0-10.0) Eosinophils (%) (Auto) 2.6 % (0.0-3.0) Basophils (%) (Auto) 1.0 % (0.0-2.0) Sodium Level 142 MMOL/L (136-145) Potassium Level 3.1 MMOL/L (3.5-5.1) L Chloride Level 100 MMOL/L (98-107) Carbon Dioxide Level 27 MMOL/L (21-32) Blood Urea Nitrogen 57 mg/dL (7-18) H Creatinine 6.4 MG/DL (0.55-1.30) H Estimat Glomerular Filtration Rate 8.8 mL/min (>60) Glucose Level 241 MG/DL (74-106) H Calcium Level 8.6 MG/DL (8.5-10.1) Phosphorus Level 3.9 MG/DL (2.5-4.9) Magnesium Level 2.0 MG/DL (1.8-2.4) Total Bilirubin 0.4 MG/DL (0.2-1.0) Aspartate Amino Transf (AST/SGOT) 15 U/L (15-37) Alanine Aminotransferase (ALT/SGPT) 10 U/L (12-78) L Alkaline Phosphatase 103 U/L (46-116) Total Protein 7.9 G/DL (6.4-8.2) Albumin 2.5 G/DL (3.4-5.0) L Globulin 5.4 g/dL Albumin/Globulin Ratio 0.5 (1.0-2.7) L Random Vancomycin Level 15.9 ug/mL Current Medications Medications (Trade) Dose Ordered Sig/Anthony Route PRN Reason Start Time Stop Time Status Last Admin Dose Admin Acetaminophen (Tylenol) 650 mg Q4H PRN NG For Pain 08/04/19 21:38 09/03/19 21:37 08/23/19 05:34 Acetaminophen (Tylenol) 650 mg Q4H PRN NG Temp >100.5 08/15/19 13:30 09/08/19 08:29 08/22/19 17:26 Chlorhexidine Gluconate (Michelle-Hex 2%) 1 applic DAILY@1999 TOPIC 08/21/19 20:00 11/19/19 19:59 08/22/19 20:01 Dextrose (Dextrose 50%) 25 ml Q30M PRN IV Hypoglycemia 08/04/19 22:00 09/18/19 19:29 Dextrose (Dextrose 50%) 50 ml Q30M PRN IV Hypoglycemia 08/04/19 22:00 09/18/19 19:29 Diphenoxylate HCl/ Atropine (Lomotil) 2.5 mg BID ORAL 08/18/19 18:00 09/17/19 17:59 08/23/19 09:01 Enoxaparin Sodium (Lovenox) 30 mg DAILY SUBQ 08/05/19 09:00 08/27/19 08:59 08/23/19 09:00 Epoetin Aftab (Epoetin Aftab(ESRD on dialysis)) 10,000 unit FRI-FRI-FRI SUBQ 08/11/19 21:00 11/09/19 20:59 08/20/19 20:29 Fluconazole (Diflucan) 200 mg DAILY NG 08/13/19 10:24 08/24/19 10:23 08/23/19 09:00 Haloperidol Lactate 5 mg/ Dextrose 56 ml @ 224 mls/hr Q6H PRN IVPB Agitation 08/04/19 21:38 09/18/19 21:37 08/19/19 02:26 Hydralazine HCl (Apresoline) 10 mg Q4H PRN IV Blood pressure over 160 systol 08/04/19 21:39 11/02/19 21:38 Insulin Aspart (NovoLOG) EVERY 6 HOURS SUBQ 08/05/19 00:00 09/19/19 00:00 08/23/19 05:34 Loperamide HCl (Imodium) 2 mg Q6H NG 08/18/19 14:00 09/15/19 13:59 08/23/19 09:00 Midodrine (Pro-Amatine) 10 mg THREE TIMES A DAY NG 08/15/19 18:00 11/13/19 17:59 08/23/19 09:01 Pantoprazole (Protonix) 40 mg DAILY IVP 08/05/19 09:00 08/26/19 08:59 08/23/19 09:00 Vancomycin HCl (Vanco pharmacy to dose) 1 ea DAILY PRN MISC Per rx protocol 08/15/19 08:45 09/14/19 08:44 Vancomycin HCl 500 mg/Dextrose 110 ml @ 110 mls/hr ONCE ONCE IVPB 08/23/19 10:00 08/23/19 10:59 08/23/19 09:01 Ted Leyva MD Aug 23, 2019 10:51
--- NOTE | 2019-08-23 10:58 | Cardiac Electrophysiology PN ---
Assessment/Plan Assessment/Plan 1. NSTEMI type 2. Low level and flat due to renal failure. On Aspirin. EF 60%. 2. S/P Septic shock. On Abx. Better after NS and Albumin and off lopressor On Midodrine 10 tid. Had fever again 3. ESRD, on HD per Dr. Cole. S/P Left SC Kamlesh catheter placement by Dr Mast 4. VDRF due to COVID pneumonia. S/P Tracheostomy 07/08/19. 5. Atrial fib with RVR. Off Lopressor for Low BP, in SR 6. Dysphagia, S/P PEG 07/13/19 7. COPD. 8. Anemia. DW RN Subjective Subjective In SDU on the vent via trach. Off pressors. Fio2 30%. Off isolation as Covid negative on 08/07/19. S/P subclavian Kamlesh catheter by Dr. Mast Had fever again and HD on 08/21 One liter out Objective Last 24 Hour Vital Signs Date Time Temp Pulse Resp B/P (MAP) Pulse Ox O2 Delivery O2 Flow Rate FiO2 08/23/19 07:15 99 29 30 08/23/19 06:46 98.6 92 24 104/59 (74) 100 08/23/19 04:00 30 08/23/19 04:00 98.4 97 24 114/62 (79) 100 08/23/19 04:00 Mechanical Ventilator Mechanical Ventilator 08/23/19 03:34 94 26 30 08/23/19 03:30 85 08/23/19 00:00 95 08/23/19 00:00 Mechanical Ventilator Mechanical Ventilator 08/23/19 00:00 99.1 100 24 89/50 (63) 99 08/22/19 23:54 100 34 30 08/22/19 20:00 Mechanical Ventilator Mechanical Ventilator 08/22/19 20:00 99.9 101 24 92/52 (65) 100 08/22/19 20:00 30 08/22/19 19:59 107 08/22/19 19:23 107 26 30 08/22/19 18:10 101.3 103 24 100 08/22/19 17:56 101.3 08/22/19 17:26 101.5 110 24 100 08/22/19 16:00 Mechanical Ventilator Mechanical Ventilator 08/22/19 16:00 103 08/22/19 16:00 97.7 111 24 143/68 (93) 100 08/22/19 16:00 30 08/22/19 15:25 105 31 30 08/22/19 12:16 100 08/22/19 12:00 Mechanical Ventilator Mechanical Ventilator 08/22/19 12:00 30 08/22/19 12:00 96 08/22/19 12:00 97.9 97 24 112/71 (85) 100 Intake and Output 08/22/19 08/23/19 19:00 07:00 Intake Total 570 ml 570 ml Output Total 1000 ml Balance -430 ml 570 ml Free Water 90 ml 90 ml Tube Feeding 480 ml 480 ml Hemodialysis UF 1000 ml # Voids 1 # Bowel Movements 4 5 Laboratory Tests Test 08/22/19 12:17 08/22/19 17:27 08/22/19 22:59 08/23/19 05:32 POC Whole Blood Glucose 231 MG/DL (74-106) H Pending 187 MG/DL (74-106) H Pending Test 08/23/19 06:13 White Blood Count 11.9 K/UL (4.8-10.8) H Red Blood Count 3.04 M/UL (4.70-6.10) L Hemoglobin 8.4 G/DL (14.2-18.0) L Hematocrit 27.9 % (42.0-52.0) L Mean Corpuscular Volume 92 FL (80-99) Mean Corpuscular Hemoglobin 27.7 PG (27.0-31.0) Mean Corpuscular Hemoglobin Concent 30.2 G/DL (32.0-36.0) L Red Cell Distribution Width 17.8 % (11.6-14.8) H Platelet Count 397 K/UL (150-450) Mean Platelet Volume 6.9 FL (6.5-10.1) Neutrophils (%) (Auto) 76.1 % (45.0-75.0) H Lymphocytes (%) (Auto) 10.4 % (20.0-45.0) L Monocytes (%) (Auto) 10.0 % (1.0-10.0) Eosinophils (%) (Auto) 2.6 % (0.0-3.0) Basophils (%) (Auto) 1.0 % (0.0-2.0) Sodium Level 142 MMOL/L (136-145) Potassium Level 3.1 MMOL/L (3.5-5.1) L Chloride Level 100 MMOL/L (98-107) Carbon Dioxide Level 27 MMOL/L (21-32) Blood Urea Nitrogen 57 mg/dL (7-18) H Creatinine 6.4 MG/DL (0.55-1.30) H Estimat Glomerular Filtration Rate 8.8 mL/min (>60) Glucose Level 241 MG/DL (74-106) H Calcium Level 8.6 MG/DL (8.5-10.1) Phosphorus Level 3.9 MG/DL (2.5-4.9) Magnesium Level 2.0 MG/DL (1.8-2.4) Total Bilirubin 0.4 MG/DL (0.2-1.0) Aspartate Amino Transf (AST/SGOT) 15 U/L (15-37) Alanine Aminotransferase (ALT/SGPT) 10 U/L (12-78) L Alkaline Phosphatase 103 U/L (46-116) Total Protein 7.9 G/DL (6.4-8.2) Albumin 2.5 G/DL (3.4-5.0) L Globulin 5.4 g/dL Albumin/Globulin Ratio 0.5 (1.0-2.7) L Random Vancomycin Level 15.9 ug/mL Objective HEAD AND NECK: No JVD. Tracheostomy in place. Left SC Kamlesh now in place. LUNGS: Decreased breath sounds. CARDIOVASCULAR: Regular S1 and S2. Tachycardic. ABDOMEN: Soft. PEG in place EXTREMITIES: No pitting edema. Gio Baker MD Aug 23, 2019 10:58
--- NOTE | 2019-08-23 11:46 | Hematology/Onc Progress Note ---
Assessment/Plan Assessment/Plan Assessment and Recs: # Anemia of chronic disease, likely related ot underlying kidney disease has COIVD19++++++ --> hgb trend 9-->8-->7.3-->7.9-->6.8->9.5-->10->8.3-->7.7-->7.1-->8.9->8.8->7.7 -->8.1 ->7.9-->7.7 -->8.2-->8.1 -->7.9-->8.5 -->9->9.2-->9.5-->10.7 -->9.8--> 10.2-->11.8 -->11.9-->8.8 ->9.4->9-->8.3 -->8.5-->9.4->9.8-->9-->8.3-->11.6--> 10.8-->10.5-->10->9.7->9.9->8.7->8.4 --> transfuse as needed, hgb goal >7 --> no evidence of hemolysis --> peripheral smear has been reviewed --> epogen started 3 x a week ==>> transfuse 06/08, 06/15 # Leukocytosis likely related to suspected COVID-19 virus infection --> completed plaquenil --> trend smear as needed --> wbc trend: 4-->11-->14.5-->21-->26-->21->24--.28-->23-->19-->16.2-->21--> 11.2 -->12.5-->12.3-->12.4-->18.5-->18.5-->17->13-->18.2-->22.2-->25-->17.4-->17 -->14.2-->14-->16-->15.5-->9->17->11.5-->12->12-->18->15 --> pulm is aware --> on abx cefepime/vanc->zosyn/vanc-->dom/vanc-->dom-->levaquin/cefepime--> vanc/zosyn --> vanc --> pressors as needed --> 06/27 covid 19++ --> pressors as needed in icu --> c diff negative 08/08 --> blood cx++ # Thrombocytopenia/Lymphopenia --> likely related to covid19 --> plt 129k-->186k-->251-->285-->384 -->430-->539-->515-->447-->451-->404-->544 -->244 -->393 # Respiratory failure with covid19+ --> s/p vent/trach --> weaning # Possible Pneumonia --> abx completed --> 07/13 cxr: Improved right lung infiltrates. # Cardiomegaly # Transaminitis with Elevated AST # COPD # Chronic Kidney Disease --> per renal hd --> s/p right femoral cath 07/02 # Hypertension # peg # Dvt ppx lovenox Appreciate consultation and dw Rn Subjective Constitutional: Denies: no symptoms, chills, fever, malaise, weakness, other HEENT: Denies: no symptoms, eye pain, blurred vision, tearing, double vision, ear pain, ear discharge, nose pain, nose congestion, throat pain, throat swelling, mouth pain, mouth swelling, other Cardiovascular: Denies: no symptoms, chest pain, edema, irregular heart rate, lightheadedness, palpitations, syncope, other Respiratory: Denies: no symptoms, cough, shortness of breath, SOB with excertion, SOB at rest, sputum, wheezing, other Gastrointestinal/Abdominal: Denies: no symptoms, abdomen distended, abdominal pain, black stools, tarry stools, blood in stool, constipated, diarrhea, difficulty swallowing, nausea, poor appetite, poor fluid intake, rectal bleeding , vomiting, other Genitourinary: Denies: no symptoms, burning, discharge, frequency, flank pain, hematuria, incontinence, pain, urgency, other Neurologic/Psychiatric: Denies: no symptoms, anxiety, depressed, emotional problems, headache, numbness, paresthesia, pre-existing deficit, seizure, tingling, tremors, weakness, other Endocrine: Denies: no symptoms, excessive sweating, flushing, intolerance to cold, intolerance to heat, increased hunger, increased thirst, increased urine, unexplained weight gain, unexplained weight loss, other Allergies: Coded Allergies: No Known Allergies (Unverified , 05/28/19) Subjective 06/01 nv, extremely agitated, not allowing labs draws, no night sweats, cbc ordered 06/02 confused, restraints, on abx and plaquenil, hgb 7.9, nrb 15 L 06/03 is with nonrebreather, but not compliant, remains confused 06/05 no bleeding, labs noted, no major bleeding, otherwise comfortable 06/06 labs reviewed, no bleeding, meds noted, no night sweats, on levo and nonrebreather 06/07 labs noted, no bleeding, meds reviewed, no bleeding, wbc higher 06/08 to get 2 units prbc, no night sweats, meds reviewed 06/09 is on cefepime and vanc, labs noted, ernesto Rn, no bleeding 06/10 no major changes, labs reviewed, wbc 28k, on abx, cefepime 06/12 remains in icu, labs noted, no night sweats or bleeding 06/13 sluggish pupils, remains agitated, per psych, no bleding, on vent, wbc sitll high 06/14 still confused, remains on vent, with ng, running nepro, on pressors 06/15 icu, febrile, non verbal, hgb 7.1, blood pending, completed plaq 06/16 remains in the icu, nonverbal, plan for hd tomorrow, ernesto rn 06/17 in icu, on pressor, nonverbal, on abx, no bleeding 06/19 no bleeding, nonverbal in icu, hgb is 7.7 06/20 on zosyn, tube feeds, vent, labs noted, in icu, nv 06/21 gettng hd as per renal, in icu, nv, no bleeding, tfs 06/22 icu, cxr with slight improvement, cooling blanket, weaning today 06/23 wewaning, in icu, on vent, abx, and pressors as needed, labs noted 06/24 failed weaning, off abx, completed plaquenil, hgb 8.1 06/26 icu, weaning for this am, afebrile, hgb 8 06/27 in icu, remains comotose, weaning started on peep, no night sweats 06/28 weaning today, off abx, restraints, no distress, h/h stable 06/29 covid 19+, failed weaning, no blood transfusion needed 06/30 icu, on vent, labs reviewed, no distress 07/01 in icu, may need trach, remains on hd per renal, labs noted 07/02 s/p right fem cath, failed wean, no new orders, h/h stable 07/03 is somewhat more responsive, on abx, no bleeding, weaning and HD today 07/04 hd as per renal, weaning off vent, no bleeding today 07/05 obtunded, no bleding overnight, with hd for tomorrow noted, vanc 07/08 no events, remains with trach/vent, ernesto Rn, no bleeding, cbc is noted 07/09 no overnight events, peg for friday pending consent 07/10 off pressors, vent, restraints, labs reviewed 07/11 no acute events is on pressors, intubated, agitated still 07/12 is resting comfortably, no bleeding, emds reviewed and noted 07/13 icu, no events, trach, cxr reviewed, 07/14 is onv ent, tachypneic and tachycardic, labs noted 07/15 remains confused, intubated, ernesto Rn, no bleeding 07/17 icu, cxr improving infiltrates, levo gtt, airborne/contact isolation 07/18 is on broad spectrum abx, is on levaquin and cefepime, wbc 16 agitated 07/19 icu, levo gtt, cxr unchanged, tachy, hd thursday 07/20 sedated, safety restraints, labs reviewed 07/21 hd was done yesterday, lower pressor requirements, wbc is worse, on abx 07/22 icu, meds and labs reviewed, vent, no distress 07/24 on vent, in icu, labs noted, remains agitated, and confused 07/25 remains obtunded, on vent, on pressor, hgb 9, wbc elev 07/26 icu, levo gtt, vent, iv abx, nonverbal 07/27 failed weaning, labs reviewed, repeat covid swab pending 07/28 labs are noted, no bleeding, on vent/trach gtube feeds dw rn 07/29 iuc, restraints, no new changes, vent 07/31 is asleep, comfortable, no events, labs reviewed, restraints+ 08/01 no events, agitated, no bleeding, meds noted, on gtube feeds 08/02 remains on vent, no bleeding, wbc higher 19, hgb 9, on abx 08/03 labs noted, on vent, no bleeding, wbc 17, hgb better 08/04 labs reviewed, no bleeding, does not require prbc, on vent 08/05 more alert, is on trach, vent, no major events, no bleeding, peg+ 08/07 no bleeding no chills, no night sweats, is on vent/trach 08/08 recent covid swab negative, restraints, cxr unchanged 08/09 c diff negative, zosyn, hd today, gtf 08/10 no overnight events, labs reviewed, afebrile 08/11 labs reviewed, meds noted, no fc, no major changes, wbc 12 08/12 abx changed to flucon, on abx, wbc 12 / bp on low end, blood cx++, vanc, vent 08/15 no bleeding, no night sweats, on abx, trach/vent 08/16 is able to nod head in response to question, labs noted, on vent/trach 08/17 labs reviewed, hgb 9.8, no bleeding, on abx, meds noted 08/18 labs noted, no bleeding, hgb stable, 9.9, mildly alert 08/19 labs are noted, no bleeding, meds reviewed, line holiday per surg 08/21 labs noted, meds reviewed, no bleeding hgb 8.7 08/22 labs reviewed, no bleeding, meds noted, no night sweats hgb 8.4 Objective Objective Current Medications Medications (Trade) Dose Ordered Sig/Anthony Route PRN Reason Start Time Stop Time Status Last Admin Dose Admin Acetaminophen (Tylenol) 650 mg Q4H PRN NG For Pain 08/04/19 21:38 09/03/19 21:37 08/23/19 05:34 Acetaminophen (Tylenol) 650 mg Q4H PRN NG Temp >100.5 08/15/19 13:30 09/08/19 08:29 08/22/19 17:26 Chlorhexidine Gluconate (Michelle-Hex 2%) 1 applic DAILY@2000 TOPIC 08/21/19 20:00 11/19/19 19:59 08/22/19 20:01 Dextrose (Dextrose 50%) 25 ml Q30M PRN IV Hypoglycemia 08/04/19 22:00 09/18/19 19:29 Dextrose (Dextrose 50%) 50 ml Q30M PRN IV Hypoglycemia 08/04/19 22:00 09/18/19 19:29 Diphenoxylate HCl/ Atropine (Lomotil) 2.5 mg BID ORAL 08/18/19 18:00 09/17/19 17:59 08/23/19 09:01 Enoxaparin Sodium (Lovenox) 30 mg DAILY SUBQ 08/05/19 09:00 08/27/19 08:59 08/23/19 09:00 Epoetin Aftab (Epoetin Aftab(ESRD on dialysis)) 10,000 unit SUBQ 08/11/19 21:00 11/09/19 20:59 08/20/19 20:29 Fluconazole (Diflucan) 200 mg DAILY NG 08/13/19 10:24 08/24/19 10:23 08/23/19 09:00 Haloperidol Lactate 5 mg/ Dextrose 56 ml @ 224 mls/hr Q6H PRN IVPB Agitation 08/04/19 21:38 09/18/19 21:37 08/19/19 02:26 Hydralazine HCl (Apresoline) 10 mg Q4H PRN IV Blood pressure over 160 systol 08/04/19 21:39 11/02/19 21:38 Insulin Aspart (NovoLOG) EVERY 6 HOURS SUBQ 08/05/19 00:00 09/19/19 00:00 08/23/19 05:34 Loperamide HCl (Imodium) 2 mg Q6H NG 08/18/19 14:00 09/15/19 13:59 08/23/19 09:00 Midodrine (Pro-Amatine) 10 mg THREE TIMES A DAY NG 08/15/19 18:00 11/13/19 17:59 08/23/19 09:01 Pantoprazole (Protonix) 40 mg DAILY IVP 08/05/19 09:00 08/26/19 08:59 08/23/19 09:00 Vancomycin HCl (Vanco pharmacy to dose) 1 ea DAILY PRN MISC Per rx protocol 08/15/19 08:45 09/14/19 08:44 Last 24 Hour Vital Signs Date Time Temp Pulse Resp B/P (MAP) Pulse Ox O2 Delivery O2 Flow Rate FiO2 08/23/19 08:00 98.2 98 20 105/62 (76) 100 08/23/19 08:00 30 08/23/19 07:15 99 29 30 08/23/19 06:46 98.6 92 24 104/59 (74) 100 08/23/19 04:00 30 08/23/19 04:00 98.4 97 24 114/62 (79) 100 08/23/19 04:00 Mechanical Ventilator Mechanical Ventilator 08/23/19 03:34 94 26 30 08/23/19 03:30 85 08/23/19 00:00 95 08/23/19 00:00 Mechanical Ventilator Mechanical Ventilator 08/23/19 00:00 99.1 100 24 89/50 (63) 99 08/22/19 23:54 100 34 30 08/22/19 20:00 Mechanical Ventilator Mechanical Ventilator 08/22/19 20:00 99.9 101 24 92/52 (65) 100 08/22/19 20:00 30 08/22/19 19:59 107 08/22/19 19:23 107 26 30 08/22/19 18:10 101.3 103 24 100 08/22/19 17:56 101.3 08/22/19 17:26 101.5 110 24 100 08/22/19 16:00 Mechanical Ventilator Mechanical Ventilator 08/22/19 16:00 103 08/22/19 16:00 97.7 111 24 143/68 (93) 100 08/22/19 16:00 30 08/22/19 15:25 105 31 30 08/22/19 12:16 100 08/22/19 12:00 Mechanical Ventilator Mechanical Ventilator 08/22/19 12:00 30 08/22/19 12:00 96 08/22/19 12:00 97.9 97 24 112/71 (85) 100 08/22/19 10:56 95 33 30 7/12/20 08:00 30 08/22/19 08:00 99.3 92 26 109/66 (80) 100 08/22/19 08:00 96 08/22/19 08:00 Mechanical Ventilator Mechanical Ventilator 08/22/19 07:20 96 29 30 08/22/19 07:06 99.3 08/22/19 04:00 30 08/22/19 04:00 Mechanical Ventilator Mechanical Ventilator 08/22/19 04:00 98.9 93 26 119/68 (85) 99 08/22/19 03:42 100 08/22/19 03:30 102 32 30 08/22/19 00:00 98.1 89 26 109/57 (74) 99 08/22/19 00:00 Mechanical Ventilator Mechanical Ventilator 08/21/19 23:35 91 08/21/19 23:30 90 32 30 08/21/19 20:00 98.2 100 30 92/59 (70) 100 08/21/19 20:00 30 08/21/19 20:00 Mechanical Ventilator Mechanical Ventilator 08/21/19 19:48 96 08/21/19 19:30 97 35 30 08/21/19 16:00 30 08/21/19 16:00 100.6 103 30 121/72 (88) 100 08/21/19 16:00 Mechanical Ventilator Mechanical Ventilator 08/21/19 16:00 103 08/21/19 15:24 95 29 30 08/21/19 12:00 98.2 87 26 118/69 (85) 100 08/21/19 12:00 102 08/21/19 12:00 30 08/21/19 12:00 Mechanical Ventilator Mechanical Ventilator Intake and Output 08/22/19 08/23/19 19:00 07:00 Intake Total 570 ml 570 ml Output Total 1000 ml Balance -430 ml 570 ml Free Water 90 ml 90 ml Tube Feeding 480 ml 480 ml Hemodialysis UF 1000 ml # Voids 1 # Bowel Movements 4 5 Labs Test 08/20/19 11:50 08/20/19 16:42 08/20/19 23:42 08/21/19 05:27 POC Whole Blood Glucose 204 MG/DL (74-106) Test 08/21/19 05:55 08/21/19 11:42 08/21/19 17:25 08/22/19 00:03 White Blood Count 12.5 K/UL (4.8-10.8) Red Blood Count 3.28 M/UL (4.70-6.10) Hemoglobin 9.3 G/DL (14.2-18.0) Hematocrit 30.6 % (42.0-52.0) Mean Corpuscular Volume 93 FL (80-99) Mean Corpuscular Hemoglobin 28.3 PG (27.0-31.0) Mean Corpuscular Hemoglobin Concent 30.3 G/DL (32.0-36.0) Red Cell Distribution Width 18.2 % (11.6-14.8) Platelet Count 438 K/UL (150-450) Mean Platelet Volume 6.6 FL (6.5-10.1) Neutrophils (%) (Auto) 75.4 % (45.0-75.0) Lymphocytes (%) (Auto) 10.5 % (20.0-45.0) Monocytes (%) (Auto) 8.3 % (1.0-10.0) Eosinophils (%) (Auto) 4.5 % (0.0-3.0) Basophils (%) (Auto) 1.3 % (0.0-2.0) Sodium Level 133 MMOL/L (136-145) Potassium Level 3.4 MMOL/L (3.5-5.1) Chloride Level 94 MMOL/L (98-107) Carbon Dioxide Level 21 MMOL/L (21-32) Anion Gap 18 mmol/L (5-15) Blood Urea Nitrogen 84 mg/dL (7-18) Creatinine 8.9 MG/DL (0.55-1.30) Estimat Glomerular Filtration Rate 6.0 mL/min (>60) Glucose Level 174 MG/DL (74-106) Calcium Level 9.4 MG/DL (8.5-10.1) Phosphorus Level 5.6 MG/DL (2.5-4.9) Magnesium Level 2.2 MG/DL (1.8-2.4) Total Bilirubin 0.4 MG/DL (0.2-1.0) Aspartate Amino Transf (AST/SGOT) 20 U/L (15-37) Alanine Aminotransferase (ALT/SGPT) 14 U/L (12-78) Alkaline Phosphatase 126 U/L (46-116) Total Protein 8.4 G/DL (6.4-8.2) Albumin 2.8 G/DL (3.4-5.0) Globulin 5.6 g/dL Albumin/Globulin Ratio 0.5 (1.0-2.7) POC Whole Blood Glucose 222 MG/DL (74-106) Test 08/22/19 05:57 08/22/19 07:50 08/22/19 12:17 08/22/19 17:27 POC Whole Blood Glucose 194 MG/DL (74-106) 231 MG/DL (74-106) White Blood Count 15.2 K/UL (4.8-10.8) Red Blood Count 3.11 M/UL (4.70-6.10) Hemoglobin 8.7 G/DL (14.2-18.0) Hematocrit 28.3 % (42.0-52.0) Mean Corpuscular Volume 91 FL (80-99) Mean Corpuscular Hemoglobin 28.1 PG (27.0-31.0) Mean Corpuscular Hemoglobin Concent 30.8 G/DL (32.0-36.0) Red Cell Distribution Width 17.5 % (11.6-14.8) Platelet Count 446 K/UL (150-450) Mean Platelet Volume 6.7 FL (6.5-10.1) Neutrophils (%) (Auto) 77.1 % (45.0-75.0) Lymphocytes (%) (Auto) 10.8 % (20.0-45.0) Monocytes (%) (Auto) 8.4 % (1.0-10.0) Eosinophils (%) (Auto) 3.1 % (0.0-3.0) Basophils (%) (Auto) 0.6 % (0.0-2.0) Sodium Level 135 MMOL/L (136-145) Potassium Level 3.7 MMOL/L (3.5-5.1) Chloride Level 94 MMOL/L (98-107) Carbon Dioxide Level 22 MMOL/L (21-32) Anion Gap 19 mmol/L (5-15) Blood Urea Nitrogen 104 mg/dL (7-18) Creatinine 10.3 MG/DL (0.55-1.30) Estimat Glomerular Filtration Rate 5.1 mL/min (>60) Glucose Level 191 MG/DL (74-106) Calcium Level 9.3 MG/DL (8.5-10.1) Test 08/22/19 22:59 08/23/19 05:32 08/23/19 06:13 POC Whole Blood Glucose 187 MG/DL (74-106) White Blood Count 11.9 K/UL (4.8-10.8) Red Blood Count 3.04 M/UL (4.70-6.10) Hemoglobin 8.4 G/DL (14.2-18.0) Hematocrit 27.9 % (42.0-52.0) Mean Corpuscular Volume 92 FL (80-99) Mean Corpuscular Hemoglobin 27.7 PG (27.0-31.0) Mean Corpuscular Hemoglobin Concent 30.2 G/DL (32.0-36.0) Red Cell Distribution Width 17.8 % (11.6-14.8) Platelet Count 397 K/UL (150-450) Mean Platelet Volume 6.9 FL (6.5-10.1) Neutrophils (%) (Auto) 76.1 % (45.0-75.0) Lymphocytes (%) (Auto) 10.4 % (20.0-45.0) Monocytes (%) (Auto) 10.0 % (1.0-10.0) Eosinophils (%) (Auto) 2.6 % (0.0-3.0) Basophils (%) (Auto) 1.0 % (0.0-2.0) Sodium Level 142 MMOL/L (136-145) Potassium Level 3.1 MMOL/L (3.5-5.1) Chloride Level 100 MMOL/L (98-107) Carbon Dioxide Level 27 MMOL/L (21-32) Blood Urea Nitrogen 57 mg/dL (7-18) Creatinine 6.4 MG/DL (0.55-1.30) Estimat Glomerular Filtration Rate 8.8 mL/min (>60) Glucose Level 241 MG/DL (74-106) Calcium Level 8.6 MG/DL (8.5-10.1) Phosphorus Level 3.9 MG/DL (2.5-4.9) Magnesium Level 2.0 MG/DL (1.8-2.4) Total Bilirubin 0.4 MG/DL (0.2-1.0) Aspartate Amino Transf (AST/SGOT) 15 U/L (15-37) Alanine Aminotransferase (ALT/SGPT) 10 U/L (12-78) Alkaline Phosphatase 103 U/L (46-116) Total Protein 7.9 G/DL (6.4-8.2) Albumin 2.5 G/DL (3.4-5.0) Globulin 5.4 g/dL Albumin/Globulin Ratio 0.5 (1.0-2.7) Random Vancomycin Level 15.9 ug/mL Height (Feet): 6 Height (Inches): 1.00 Weight (Pounds): 173 Objective General: nv, confused, sedated Heent: bilateral eye normal inspection, bilateral eye PERRL ++Ng Respiratory: normal breath sounds, no respiratory distress, intubated/vent +++ trach+++ Cardiovascular: regular rate, rhythm, no edema Gastrointestinal: normal inspection, soft, non-distended, peg+ Rectal: deferred Musculoskeletal: normal range of motion, non-tender, R fem cath++ Neurologic: alert, motor strength/tone normal, sensory intact, responsive, speech normal Skin: Decubitus/Ulcer - See RN skin exam. : jamaal+ Greg Cabral MD Aug 23, 2019 11:46
--- NOTE | 2019-08-23 12:41 | Surgery Progress Note ---
Surgery Progress Note Subjective Procedure Performed Insertion of left subclavian temporary hemodialysis catheter Tracheostomy exchange 8 Egyptian Shiley Additional Comments leukocytosis improved micro noted cath tip without growth Objective Last 24 Hour Vital Signs Date Time Temp Pulse Resp B/P (MAP) Pulse Ox O2 Delivery O2 Flow Rate FiO2 08/23/19 12:00 86 08/23/19 11:05 91 30 30 08/23/19 08:00 98.2 98 20 105/62 (76) 100 08/23/19 08:00 93 08/23/19 08:00 30 08/23/19 07:15 99 29 30 08/23/19 06:46 98.6 92 24 104/59 (74) 100 08/23/19 04:00 30 08/23/19 04:00 98.4 97 24 114/62 (79) 100 08/23/19 04:00 Mechanical Ventilator Mechanical Ventilator 08/23/19 03:34 94 26 30 08/23/19 03:30 85 08/23/19 00:00 95 08/23/19 00:00 Mechanical Ventilator Mechanical Ventilator 08/23/19 00:00 99.1 100 24 89/50 (63) 99 08/22/19 23:54 100 34 30 08/22/19 20:00 Mechanical Ventilator Mechanical Ventilator 08/22/19 20:00 99.9 101 24 92/52 (65) 100 08/22/19 20:00 30 08/22/19 19:59 107 08/22/19 19:23 107 26 30 08/22/19 18:10 101.3 103 24 100 08/22/19 17:56 101.3 08/22/19 17:26 101.5 110 24 100 08/22/19 16:00 Mechanical Ventilator Mechanical Ventilator 08/22/19 16:00 103 08/22/19 16:00 97.7 111 24 143/68 (93) 100 08/22/19 16:00 30 08/22/19 15:25 105 31 30 I&O Intake and Output 08/22/19 08/23/19 19:00 07:00 Intake Total 570 ml 570 ml Output Total 1000 ml Balance -430 ml 570 ml Free Water 90 ml 90 ml Tube Feeding 480 ml 480 ml Hemodialysis UF 1000 ml # Voids 1 # Bowel Movements 4 5 Dressing: other Wound: other Drains: other Cardiovascular: RSR Respiratory: decreased breath sounds Abdomen: soft, non-tender, present bowel sounds Extremities: no tenderness, no cyanosis Laboratory Tests Test 08/22/19 17:27 08/22/19 22:59 08/23/19 05:32 08/23/19 06:13 POC Whole Blood Glucose Pending 187 MG/DL (74-106) H Pending White Blood Count 11.9 K/UL (4.8-10.8) H Red Blood Count 3.04 M/UL (4.70-6.10) L Hemoglobin 8.4 G/DL (14.2-18.0) L Hematocrit 27.9 % (42.0-52.0) L Mean Corpuscular Volume 92 FL (80-99) Mean Corpuscular Hemoglobin 27.7 PG (27.0-31.0) Mean Corpuscular Hemoglobin Concent 30.2 G/DL (32.0-36.0) L Red Cell Distribution Width 17.8 % (11.6-14.8) H Platelet Count 397 K/UL (150-450) Mean Platelet Volume 6.9 FL (6.5-10.1) Neutrophils (%) (Auto) 76.1 % (45.0-75.0) H Lymphocytes (%) (Auto) 10.4 % (20.0-45.0) L Monocytes (%) (Auto) 10.0 % (1.0-10.0) Eosinophils (%) (Auto) 2.6 % (0.0-3.0) Basophils (%) (Auto) 1.0 % (0.0-2.0) Sodium Level 142 MMOL/L (136-145) Potassium Level 3.1 MMOL/L (3.5-5.1) L Chloride Level 100 MMOL/L (98-107) Carbon Dioxide Level 27 MMOL/L (21-32) Blood Urea Nitrogen 57 mg/dL (7-18) H Creatinine 6.4 MG/DL (0.55-1.30) H Estimat Glomerular Filtration Rate 8.8 mL/min (>60) Glucose Level 241 MG/DL (74-106) H Calcium Level 8.6 MG/DL (8.5-10.1) Phosphorus Level 3.9 MG/DL (2.5-4.9) Magnesium Level 2.0 MG/DL (1.8-2.4) Total Bilirubin 0.4 MG/DL (0.2-1.0) Aspartate Amino Transf (AST/SGOT) 15 U/L (15-37) Alanine Aminotransferase (ALT/SGPT) 10 U/L (12-78) L Alkaline Phosphatase 103 U/L (46-116) Total Protein 7.9 G/DL (6.4-8.2) Albumin 2.5 G/DL (3.4-5.0) L Globulin 5.4 g/dL Albumin/Globulin Ratio 0.5 (1.0-2.7) L Random Vancomycin Level 15.9 ug/mL Test 08/23/19 12:23 POC Whole Blood Glucose Pending Plan Problems: (1) Suspected COVID-19 virus infection (2) HTN (hypertension) (3) CASSANDRA (acute kidney injury) Assessment & Plan: Needs urgent HD needs access patient okay and consented see note will follow with recs new line placed discussed with team and nephrology HD line functional when checked has TPA now please use appropriately Cathflo used again this flow during dialysis on 430 was low. Will monitor may need line change 5/4 plan for HD as per renal may need to take fluid off with HD edema anasarca dressings saturated and changed will monitor cont with HD IJ left line placed for HD given extent of prior line in place. leukocytosis blood cx negative may need to change out line new line okay HD going well Continue HD as tolerated May need pressors for HD as needed (4) Anemia in chronic kidney disease (CKD) (5) Anemia (6) Renal failure (7) Suspected COVID-19 virus infection Assessment & Plan: Pt deconditioned and despite all skin preventions Pt noted to have developed several pressure injuries. . Stable dry eschar noted to clefts of R and L ears. No erythema noted . DTPI noted to L trochanter. Base of injury is maroon in colour with marginal erythema along borders. Partially opened DTPI Sacrum, R and L Buttocks. Base of wound is maroon with two small open wounds L sacrum and L buttocks. Pt has an APM/MOMO Mattress overlay and is being positioned with pillows as per tolerance and within protocols. worsening despite medical efforts will cont to provide therapy Tx.Plan: Apply Cavilon Skin Barrier to both ears Daily and prn. Apply Moisture Barrier Paste to Sacrum,R and L Buttocks. Cover with Optifoam drsgs. Change every 3 days and PRN. Apply Cavilon Skin Barrier to R and L trochanter. Cover each site with Optifoam drsgs.Change every 7 days and PRN. Apply Cavilon Skin Barrier to both heels. Cover each heel with Optifoam drsg. Change every 7 days and prn. Off-load heels with pillow. Reposition at least every 2hours or as tolerated. APM/MOMO Mattress overlay. (8) COVID-19 Assessment & Plan: COVID + c diff negative febrile leukocytosis renal insufficiency see above cont resp care Rx as per ID worsening on vent support now cxr noted on pressors prognosis guarded repeat covid ++ weaning vent and pressors off slowly showing improvement slowly recovering will need trach as unable to wean vent safely called and spoke with country conservatorship. consent obtained s/p trach pending peg worsening on levo max (9) Sepsis Assessment & Plan: worsening leukocytosis febrile on pressors discussed with ID. lines evaluated and clean. he is septic on pressors and needs central access in difficult venous access patient blood cultures negative will monitor temp HD cath out now with permacath left tlc still subclavian needed line c/d/i line negative c diff negative wbc resolved improved d/c planning febrile leukocytosis hold d/c infectious work up in place yeast in cultures fevers persistent fungemia abx as per ID hold on line removal cont abx repeat cx Plan for line removal plan for line holiday will replace dialysis catheter PRN Hemodialysis line change August 20 Tracheostomy exchange 8 Egyptian Shiley due to balloon insufficiency August 20 Yaniv Mast Aug 23, 2019 12:41
--- NOTE | 2019-08-23 15:14 | Diagnostic Imaging Report ---
Indication: Shortness of breath Technique: One view of the chest Comparison: 08/21/2019 Findings: Left chest every dialysis catheter is again demonstrated. Mild interstitial prominence and peripheral left sided hazy opacities are unchanged. The heart size is normal. Tracheostomy again demonstrated Impression: Unchanged, over 2 days, findings as above.
[2019-08-23] MEDS: Dyna-Hex 2% Top Sol 2oz TOPIC SCH (20:02)
[2019-08-23] MEDS: Epoetin Alfa-EPBX(ESRD on dialysis)10,000 unit/ml vial SUBQ SCH (20:02)
--- NOTE | 2019-08-23 20:56 | General Progress Note ---
Assessment/Plan Problem List: (1) HTN (hypertension) ICD Codes: I10 - Essential (primary) hypertension SNOMED: 94923917 (2) CASSANDRA (acute kidney injury) ICD Codes: N17.9 - Acute kidney failure, unspecified SNOMED: 1786783, 88329774 (3) Anemia in chronic kidney disease (CKD) ICD Codes: N18.9 - Chronic kidney disease, unspecified; D63.1 - Anemia in chronic kidney disease SNOMED: 358768001 (4) Renal failure ICD Codes: N19 - Unspecified kidney failure SNOMED: 20759993 (5) Respiratory failure requiring intubation ICD Codes: J96.90 - Respiratory failure, unspecified, unspecified whether with hypoxia or hypercapnia; A41.89 - Other specified sepsis SNOMED: 043149889, 462881573 (6) Pneumonia due to COVID-19 virus ICD Codes: U07.1 - COVID-19; J12.89 - Other viral pneumonia SNOMED: 194579867, 025979756 (7) Sepsis due to severe acute respiratory syndrome coronavirus 2 (SARS-CoV-2) ICD Codes: U07.1 - COVID-19; A41.89 - Other specified sepsis SNOMED: 567266427, 345956319 Status: progressing, unchanged Assessment/Plan: positive cx needs placement h/o covid supportive rx trach and peg fungemia .positive blood cx h/o covid reviewed chart and labs Subjective ROS Limited/Unobtainable: Yes Allergies: Coded Allergies: No Known Allergies (Unverified , 05/28/19) Objective Last 24 Hour Vital Signs Date Time Temp Pulse Resp B/P (MAP) Pulse Ox O2 Delivery O2 Flow Rate FiO2 08/23/19 20:00 98.7 92 22 130/67 (88) 100 08/23/19 20:00 Mechanical Ventilator Mechanical Ventilator 08/23/19 20:00 30 08/23/19 19:42 107 08/23/19 19:19 94 28 30 08/23/19 16:00 79 08/23/19 16:00 30 08/23/19 16:00 Mechanical Ventilator Mechanical Ventilator 08/23/19 16:00 98.4 85 20 101/64 (76) 100 08/23/19 15:15 89 29 30 08/23/19 12:00 30 08/23/19 12:00 98.2 94 20 113/65 (81) 100 08/23/19 12:00 86 08/23/19 12:00 Mechanical Ventilator Mechanical Ventilator 08/23/19 11:05 91 30 30 08/23/19 08:00 98.2 98 20 105/62 (76) 100 08/23/19 08:00 93 08/23/19 08:00 Mechanical Ventilator Mechanical Ventilator 08/23/19 08:00 30 08/23/19 07:15 99 29 30 08/23/19 06:46 98.6 92 24 104/59 (74) 100 08/23/19 04:00 30 08/23/19 04:00 98.4 97 24 114/62 (79) 100 08/23/19 04:00 Mechanical Ventilator Mechanical Ventilator 08/23/19 03:34 94 26 30 08/23/19 03:30 85 08/23/19 00:00 95 08/23/19 00:00 Mechanical Ventilator Mechanical Ventilator 08/23/19 00:00 99.1 100 24 89/50 (63) 99 08/22/19 23:54 100 34 30 Intake and Output 08/22/19 08/23/19 19:00 07:00 Intake Total 570 ml 570 ml Output Total 1000 ml Balance -430 ml 570 ml Free Water 90 ml 90 ml Tube Feeding 480 ml 480 ml Hemodialysis UF 1000 ml # Voids 1 # Bowel Movements 4 5 Laboratory Tests 08/22/19 22:59: POC Whole Blood Glucose 187H 08/23/19 05:32: POC Whole Blood Glucose [Pending] 08/23/19 06:13: White Blood Count 11.9H, Red Blood Count 3.04L, Hemoglobin 8.4L, Hematocrit 27.9L, Mean Corpuscular Volume 92, Mean Corpuscular Hemoglobin 27.7, Mean Corpuscular Hemoglobin Concent 30.2L, Red Cell Distribution Width 17.8H, Platelet Count 397, Mean Platelet Volume 6.9, Neutrophils (%) (Auto) 76.1H, Lymphocytes (%) (Auto) 10.4L, Monocytes (%) (Auto) 10.0, Eosinophils (%) (Auto) 2.6, Basophils (%) (Auto) 1.0, Sodium Level 142, Potassium Level 3.1L, Chloride Level 100, Carbon Dioxide Level 27, Blood Urea Nitrogen 57H, Creatinine 6.4H, Estimat Glomerular Filtration Rate 8.8, Glucose Level 241H, Calcium Level 8.6, Phosphorus Level 3.9, Magnesium Level 2.0, Total Bilirubin 0.4, Aspartate Amino Transf (AST/SGOT) 15, Alanine Aminotransferase (ALT/SGPT) 10L, Alkaline Phosphatase 103, Total Protein 7.9, Albumin 2.5L, Globulin 5.4, Albumin/ Globulin Ratio 0.5L, Random Vancomycin Level 15.9 08/23/19 12:23: POC Whole Blood Glucose [Pending] 08/23/19 17:18: POC Whole Blood Glucose [Pending] Height (Feet): 6 Height (Inches): 1.00 Weight (Pounds): 173 Karishma Mulligan MD Aug 23, 2019 20:56
--- NOTE | 2019-08-23 21:33 | Pulmonolgy Critical Care Note ---
Critical Care - Asmt/Plan Assessment/Plan: Pulmonary Progress Note HPI: Patient is a 68 year old man, residential resident, admitted c/o shortness of breath, cough, noted to have Covid 19 Pneumonia, Respiratory Failure Remains on Ventilator, CXR stable, mild interstitial prominence, 08/22 Anemia CKD on HD, will need eventual placement, second consecutive repeat COVID19 test negative Preserved EF FIO2 30%, P5, adequate O2 sats, remains on ACVC, tolerating CPAP PS 8 day, s/p Tracheostomy previously, sp PEG, sp HD line insertion ID following MRSA sputum Sp Trach change Reviewed earlier Past Medical History: COPD, CKD, Hypertension, Anemia Allergies: No Known Allergies Physical Exam Vital Signs Noted Stable on ventilator Chronically ill appearing HEENT: Trach CDI Chest: CTAB Hreart: HS1, HS2, RRR Abdomen: SNTND, Gtube Extremities: Wasted, no edema [employer]CH:No focal signs Impression: COVID-19 virus infection - now Covid negative Pneumonia Respiratory failure on ventilator, wean as tolerated CKD - on HD Previous NSTEMI Hypotension resolved Cardiomegaly Fungemia MRSA sputum COPD Chronic Kidney Disease - HD H/o Hypertension Anemia Plan: trach care as is Antibiotics per ID HD per renal monitor vitals AC - wean as tolerated, PS 8 AM anxiolytics if needed 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 PRN Monitor lab data nutrition feeds Hemodialysis per Renal impression, plan, and exam edited and reviewed in detail care discussed with RN Laboratory Tests Noted: CXR: No acute changes Subjective ROS Limited/Unobtainable: Yes Allergies: Coded Allergies: No Known Allergies (Unverified , 05/28/19) Critical Care - Objective Last 24 Hour Vital Signs Date Time Temp Pulse Resp B/P (MAP) Pulse Ox O2 Delivery O2 Flow Rate FiO2 08/23/19 20:00 98.7 92 22 130/67 (88) 100 08/23/19 20:00 Mechanical Ventilator Mechanical Ventilator 08/23/19 20:00 30 08/23/19 19:42 107 08/23/19 19:19 94 28 30 08/23/19 16:00 79 08/23/19 16:00 30 08/23/19 16:00 Mechanical Ventilator Mechanical Ventilator 08/23/19 16:00 98.4 85 20 101/64 (76) 100 08/23/19 15:15 89 29 30 08/23/19 12:00 30 08/23/19 12:00 98.2 94 20 113/65 (81) 100 08/23/19 12:00 86 08/23/19 12:00 Mechanical Ventilator Mechanical Ventilator 08/23/19 11:05 91 30 30 08/23/19 08:00 98.2 98 20 105/62 (76) 100 08/23/19 08:00 93 08/23/19 08:00 Mechanical Ventilator Mechanical Ventilator 08/23/19 08:00 30 08/23/19 07:15 99 29 30 08/23/19 06:46 98.6 92 24 104/59 (74) 100 08/23/19 04:00 30 08/23/19 04:00 98.4 97 24 114/62 (79) 100 08/23/19 04:00 Mechanical Ventilator Mechanical Ventilator 08/23/19 03:34 94 26 30 08/23/19 03:30 85 08/23/19 00:00 95 08/23/19 00:00 Mechanical Ventilator Mechanical Ventilator 08/23/19 00:00 99.1 100 24 89/50 (63) 99 08/22/19 23:54 100 34 30 Accucheck: 233 Critical Care - Subjective ROS Limited/Unobtainable: Yes Condition: stable FI02: 30 Vent Support Breath Rate: 26 Vent Support Mode: AC Vent Tidal Volume: 500 Sputum Amount: Small PEEP: 5.0 PIP: 24 Tube Feeding Amount: 40 I&O: Intake and Output 08/22/19 08/23/19 19:00 07:00 Intake Total 570 ml 570 ml Output Total 1000 ml Balance -430 ml 570 ml Free Water 90 ml 90 ml Tube Feeding 480 ml 480 ml Hemodialysis UF 1000 ml # Voids 1 # Bowel Movements 4 5 ET-Tube: 7.5 ET Position: 24 Arturo Mckeon MD Aug 23, 2019 21:33
[2019-08-24] VITALS (7 sets, daily range): BP systolic 114–135; BP diastolic 62–83
[2019-08-24 05:24] LABS: BASOPHILS % (AUTO) 0.9 % (0.0-2.0); EOSINOPHILS % (AUTO) 2.8 % (0.0-3.0); HEMATOCRIT 26.3 % (42.0-52.0); LYMPHOCYTES % (AUTO) 10.8 % (20.0-45.0); MEAN CORPUSCULAR VOLUME 92 FL (80-99); MONOCYTES % (AUTO) 9.6 % (1.0-10.0); PLATELET COUNT 392 K/UL (150-450); RED BLOOD COUNT 2.87 M/UL (4.70-6.10); RED CELL DISTRIBUTION WIDTH 17.9 % (11.6-14.8); WHITE BLOOD COUNT 9.8 K/UL (4.8-10.8)
[2019-08-24] MEDS: NovoLOG Insulin Flexpen SUBQ SCH ×4 (05:25→23:25)
[2019-08-24 05:52] LABS: ALANINE AMINOTRANSFERASE 8 U/L (12-78); ALBUMIN 2.6 G/DL (3.4-5.0); ALBUMIN/GLOBULIN RATIO 0.5 (1.0-2.7); ALKALINE PHOSPHATASE 111 U/L (46-116); ANION GAP 16 mmol/L (5-15); ASPARTATE AMINO TRANSFERASE 18 U/L (15-37); BILIRUBIN,TOTAL 0.4 MG/DL (0.2-1.0); BLOOD UREA NITROGEN 67 mg/dL (7-18); CALCIUM 9.1 MG/DL (8.5-10.1); CARBON DIOXIDE 25 MMOL/L (21-32); CHLORIDE 100 MMOL/L (98-107); CREATININE 7.3 MG/DL (0.55-1.30); PHOSPHORUS 4.3 MG/DL (2.5-4.9); POTASSIUM 3.1 MMOL/L (3.5-5.1); SODIUM 141 MMOL/L (136-145)
[2019-08-24] MEDS: Midodrine 10mg tab NG SCH ×3 (09:01→17:52)
[2019-08-24] MEDS: Lomotil 2.5mg tab ORAL SCH (09:01)
[2019-08-24] MEDS: Fluconazole 100mg tab NG SCH (09:01)
[2019-08-24] MEDS: Pantoprazole Inj IVP SCH (09:01)
[2019-08-24] MEDS: Enoxaparin 30mg Inj SUBQ SCH (09:03)
--- NOTE | 2019-08-24 09:09 | General Progress Note ---
Assessment/Plan Status: progressing, unchanged Assessment/Plan: 1. Diabetes. 2. Hypertension. 3. Coronary artery disease. 4. COPD. 5. Psychiatric disorder with schizophrenia. 6. History of hepatitis C. 7. HLP. 8. Chronic kidney disease, now with acute renal failure. 9. Anemia. 10. Hypothyroidism. 11. Spinal stenosis. 12. Constipation. 13. GERD. 14. COVID positive HD per nephrology fu labs s/p PEG GTF TF at 40 cc imodium lomotil neg C.diff off reglan monitor for residuals Subjective ROS Limited/Unobtainable: No Allergies: Coded Allergies: No Known Allergies (Unverified , 05/28/19) Objective Last 24 Hour Vital Signs Date Time Temp Pulse Resp B/P (MAP) Pulse Ox O2 Delivery O2 Flow Rate FiO2 08/24/19 08:00 98.2 85 20 128/83 (98) 100 08/24/19 07:55 83 33 30 08/24/19 04:00 Mechanical Ventilator Mechanical Ventilator 08/24/19 04:00 98.9 82 20 114/69 (84) 100 08/24/19 04:00 30 08/24/19 03:42 89 08/24/19 03:05 90 30 30 08/24/19 00:00 Mechanical Ventilator Mechanical Ventilator 08/24/19 00:00 100.4 92 26 130/78 (95) 99 08/24/19 00:00 30 08/23/19 23:54 99.5 08/23/19 23:30 85 08/23/19 22:53 94 32 30 08/23/19 20:00 98.7 92 22 130/67 (88) 100 08/23/19 20:00 Mechanical Ventilator Mechanical Ventilator 08/23/19 20:00 30 08/23/19 19:42 107 08/23/19 19:19 94 28 30 08/23/19 16:00 79 08/23/19 16:00 30 08/23/19 16:00 Mechanical Ventilator Mechanical Ventilator 08/23/19 16:00 98.4 85 20 101/64 (76) 100 08/23/19 15:15 89 29 30 08/23/19 12:00 30 08/23/19 12:00 98.2 94 20 113/65 (81) 100 08/23/19 12:00 86 08/23/19 12:00 Mechanical Ventilator Mechanical Ventilator 08/23/19 11:05 91 30 30 Intake and Output 08/23/19 08/24/19 19:00 07:00 Intake Total 580 ml 640 ml Output Total 10 ml Balance 570 ml 640 ml Free Water 100 ml 200 ml Tube Feeding 480 ml 440 ml Stool Total 10 ml # Bowel Movements 3 5 Laboratory Tests 08/23/19 12:23: POC Whole Blood Glucose [Pending] 08/23/19 17:18: POC Whole Blood Glucose [Pending] 08/23/19 23:17: POC Whole Blood Glucose [Pending] 08/24/19 04:00: White Blood Count 9.8, Red Blood Count 2.87L, Hemoglobin 8.0L, Hematocrit 26.3L , Mean Corpuscular Volume 92, Mean Corpuscular Hemoglobin 27.9, Mean Corpuscular Hemoglobin Concent 30.4L, Red Cell Distribution Width 17.9H, Platelet Count 392, Mean Platelet Volume 6.5, Neutrophils (%) (Auto) 76.0H, Lymphocytes (%) (Auto) 10.8L, Monocytes (%) (Auto) 9.6, Eosinophils (%) (Auto) 2.8, Basophils (%) (Auto) 0.9, Sodium Level 141, Potassium Level 3.1L, Chloride Level 100, Carbon Dioxide Level 25, Anion Gap 16H, Blood Urea Nitrogen 67H, Creatinine 7.3H, Estimat Glomerular Filtration Rate 7.5, Glucose Level 203H, Calcium Level 9.1, Phosphorus Level 4.3, Magnesium Level 1.9, Total Bilirubin 0.4, Aspartate Amino Transf (AST/SGOT) 18, Alanine Aminotransferase (ALT/SGPT) 8L, Alkaline Phosphatase 111, C-Reactive Protein, Quantitative 35.3H, Pro-B- Type Natriuretic Peptide 19679C, Total Protein 7.9, Albumin 2.6L, Globulin 5.3, Albumin/Globulin Ratio 0.5L 08/24/19 04:53: POC Whole Blood Glucose 185H Height (Feet): 6 Height (Inches): 1.00 Weight (Pounds): 171 General Appearance: no apparent distress EENT: normal ENT inspection Neck: supple Cardiovascular: normal rate Respiratory/Chest: decreased breath sounds Abdomen: normal bowel sounds, non tender, soft Extremities: non-tender Marito Ramires MD Aug 24, 2019 09:09
[2019-08-24] MEDS ORDERED: Sodium Chloride for KCL Premix x 2hrs IV SCH (10:00)
--- NOTE | 2019-08-24 10:20 | Infectious Diseases Prog Note ---
Assessment/Plan Assessment/Plan IMPRESSION: 1. COVID19 pneumonia Positive: 05/27, 05/31 , 06/05, 06/09 ,06/17, 06/19, 06/23, 06/27, 07/03, 07/15, 07/29 Negative: 07/26, 08/04, 08/05 2. MRSA carrier. 3. Chronic kidney disease , end-stage renal disease. 4. COPD. 5. Hypertension. 6. Anemia. 7. Hypothyroidism. 8. Hyperlipidemia. 9. Major depression. 10. Leukocytosis resolved 11. Hypotension 12. Hepatitis C 13. Hyperuricemia 14. Diarrhea, C difficile negative 15. septic shock 16.Sepsis blood cultures 08/08 & 08/12 : yeast blood culture: Staph Coagulase negative 17. Pneumonia with Staph aureus ( MRSA) 18. Candidal sepsis 19. Diarrhea, C. difficile negative RECOMMENDATIONS: continue Fluconazole & Vancomycin Will f/u blood culture Unchanged CXR Subjective ROS Limited/Unobtainable: Yes Constitutional: Reports: fever, other - Mp=804.4 Allergies: Coded Allergies: No Known Allergies (Unverified , 05/28/19) Objective Last 24 Hour Vital Signs Date Time Temp Pulse Resp B/P (MAP) Pulse Ox O2 Delivery O2 Flow Rate FiO2 08/24/19 09:16 100 08/24/19 08:00 30 08/24/19 08:00 98.2 85 20 128/83 (98) 100 08/24/19 07:55 83 33 30 08/24/19 04:00 Mechanical Ventilator Mechanical Ventilator 08/24/19 04:00 98.9 82 20 114/69 (84) 100 08/24/19 04:00 30 08/24/19 03:42 89 08/24/19 03:05 90 30 30 08/24/19 00:00 Mechanical Ventilator Mechanical Ventilator 08/24/19 00:00 100.4 92 26 130/78 (95) 99 08/24/19 00:00 30 08/23/19 23:54 99.5 08/23/19 23:30 85 08/23/19 22:53 94 32 30 08/23/19 20:00 98.7 92 22 130/67 (88) 100 08/23/19 20:00 Mechanical Ventilator Mechanical Ventilator 08/23/19 20:00 30 08/23/19 19:42 107 08/23/19 19:19 94 28 30 08/23/19 16:00 79 08/23/19 16:00 30 08/23/19 16:00 Mechanical Ventilator Mechanical Ventilator 08/23/19 16:00 98.4 85 20 101/64 (76) 100 08/23/19 15:15 89 29 30 08/23/19 12:00 30 08/23/19 12:00 98.2 94 20 113/65 (81) 100 08/23/19 12:00 86 08/23/19 12:00 Mechanical Ventilator Mechanical Ventilator 08/23/19 11:05 91 30 30 Height (Feet): 6 Height (Inches): 1.00 Weight (Pounds): 171 General Appearance: no acute distress HEENT: mucous membranes moist, status post trach Respiratory/Chest: lungs clear, other - on ventilator Cardiovascular: normal rate, other - HD line Abdomen: soft, non tender, other - GT feeding Extremities: no edema Neurologic/Psychiatric: alert, responsive Laboratory Tests Test 08/23/19 12:23 08/23/19 17:18 08/23/19 23:17 08/24/19 04:00 POC Whole Blood Glucose Pending Pending Pending White Blood Count 9.8 K/UL (4.8-10.8) Red Blood Count 2.87 M/UL (4.70-6.10) L Hemoglobin 8.0 G/DL (14.2-18.0) L Hematocrit 26.3 % (42.0-52.0) L Mean Corpuscular Volume 92 FL (80-99) Mean Corpuscular Hemoglobin 27.9 PG (27.0-31.0) Mean Corpuscular Hemoglobin Concent 30.4 G/DL (32.0-36.0) L Red Cell Distribution Width 17.9 % (11.6-14.8) H Platelet Count 392 K/UL (150-450) Mean Platelet Volume 6.5 FL (6.5-10.1) Neutrophils (%) (Auto) 76.0 % (45.0-75.0) H Lymphocytes (%) (Auto) 10.8 % (20.0-45.0) L Monocytes (%) (Auto) 9.6 % (1.0-10.0) Eosinophils (%) (Auto) 2.8 % (0.0-3.0) Basophils (%) (Auto) 0.9 % (0.0-2.0) Sodium Level 141 MMOL/L (136-145) Potassium Level 3.1 MMOL/L (3.5-5.1) L Chloride Level 100 MMOL/L (98-107) Carbon Dioxide Level 25 MMOL/L (21-32) Anion Gap 16 mmol/L (5-15) H Blood Urea Nitrogen 67 mg/dL (7-18) H Creatinine 7.3 MG/DL (0.55-1.30) H Estimat Glomerular Filtration Rate 7.5 mL/min (>60) Glucose Level 203 MG/DL (74-106) H Calcium Level 9.1 MG/DL (8.5-10.1) Phosphorus Level 4.3 MG/DL (2.5-4.9) Magnesium Level 1.9 MG/DL (1.8-2.4) Total Bilirubin 0.4 MG/DL (0.2-1.0) Aspartate Amino Transf (AST/SGOT) 18 U/L (15-37) Alanine Aminotransferase (ALT/SGPT) 8 U/L (12-78) L Alkaline Phosphatase 111 U/L (46-116) C-Reactive Protein, Quantitative 35.3 mg/dL (0.00-0.90) H Pro-B-Type Natriuretic Peptide 49021 pg/mL (0-125) H Total Protein 7.9 G/DL (6.4-8.2) Albumin 2.6 G/DL (3.4-5.0) L Globulin 5.3 g/dL Albumin/Globulin Ratio 0.5 (1.0-2.7) L Test 08/24/19 04:53 08/24/19 09:48 POC Whole Blood Glucose 185 MG/DL (74-106) H Arterial Blood pH 7.397 (7.350-7.450) Arterial Blood Partial Pressure CO2 37.5 mmHg (35.0-45.0) Arterial Blood Partial Pressure O2 114.0 mmHg (75.0-100.0) H Arterial Blood HCO3 22.6 mmol/L (22.0-26.0) Arterial Blood Oxygen Saturation 97.9 % (95-100) Arterial Blood Base Excess -2.0 (-2-2) Kosta Test Positive Current Medications Medications (Trade) Dose Ordered Sig/Anthony Route PRN Reason Start Time Stop Time Status Last Admin Dose Admin Acetaminophen (Tylenol) 650 mg Q4H PRN NG For Pain 08/04/19 21:38 09/03/19 21:37 08/23/19 12:26 Acetaminophen (Tylenol) 650 mg Q4H PRN NG Temp >100.5 08/15/19 13:30 09/08/19 08:29 08/23/19 23:24 Chlorhexidine Gluconate (Michelle-Hex 2%) 1 applic DAILY@2000 TOPIC 08/21/19 20:00 11/19/19 19:59 08/23/19 20:02 Dextrose (Dextrose 50%) 25 ml Q30M PRN IV Hypoglycemia 08/04/19 22:00 09/18/19 19:29 Dextrose (Dextrose 50%) 50 ml Q30M PRN IV Hypoglycemia 08/04/19 22:00 09/18/19 19:29 Diphenoxylate HCl/ Atropine (Lomotil) 2.5 mg BID ORAL 08/18/19 18:00 09/17/19 17:59 08/24/19 09:01 Enoxaparin Sodium (Lovenox) 30 mg DAILY SUBQ 08/05/19 09:00 08/27/19 08:59 08/24/19 09:03 Epoetin Aftab (Epoetin Aftab(ESRD on dialysis)) 10,000 unit FRI-FRI-FRI SUBQ 08/11/19 21:00 11/09/19 20:59 08/23/19 20:02 Fluconazole (Diflucan) 200 mg DAILY NG 08/13/19 10:24 08/30/19 10:23 08/24/19 09:01 Haloperidol Lactate 5 mg/ Dextrose 56 ml @ 224 mls/hr Q6H PRN IVPB Agitation 08/04/19 21:38 09/18/19 21:37 08/19/19 02:26 Hydralazine HCl (Apresoline) 10 mg Q4H PRN IV Blood pressure over 160 systol 08/04/19 21:39 11/02/19 21:38 Insulin Aspart (NovoLOG) EVERY 6 HOURS SUBQ 08/05/19 00:00 09/19/19 00:00 08/24/19 05:25 Loperamide HCl (Imodium) 2 mg Q6H NG 08/18/19 14:00 09/15/19 13:59 08/24/19 09:01 Midodrine (Pro-Amatine) 10 mg THREE TIMES A DAY NG 08/15/19 18:00 11/13/19 17:59 08/24/19 09:01 Pantoprazole (Protonix) 40 mg DAILY IVP 08/05/19 09:00 08/26/19 08:59 08/24/19 09:01 Potassium Chloride 100 ml @ 100 mls/hr Q1H IVPB 08/24/19 10:00 08/24/19 11:59 08/24/19 10:10 Sodium Chloride 200 ml @ 100 mls/hr Q2H IV 08/24/19 10:00 08/24/19 11:59 08/24/19 10:10 Vancomycin HCl ([facility] pharmacy to dose) 1 ea DAILY PRN MISC Per rx protocol 08/15/19 08:45 09/14/19 08:44 Ted Leyva MD Aug 24, 2019 10:20
--- NOTE | 2019-08-24 10:21 | Hematology/Onc Progress Note ---
Assessment/Plan Assessment/Plan Assessment and Recs: # Anemia of chronic disease, likely related ot underlying kidney disease has COIVD19++++++ --> hgb trend 9-->8-->7.3-->7.9-->6.8->9.5-->10->8.3-->7.7-->7.1-->8.9->8.8->7.7 -->8.1 ->7.9-->7.7 -->8.2-->8.1 -->7.9-->8.5 -->9->9.2-->9.5-->10.7 -->9.8--> 10.2-->11.8 -->11.9-->8.8 ->9.4->9-->8.3 -->8.5-->9.4->9.8-->9-->8.3-->11.6--> 10.8-->10.5-->10->9.7->9.9->8.7->8.4->8 --> transfuse as needed, hgb goal >7 --> no evidence of hemolysis --> peripheral smear has been reviewed --> epogen started 3 x a week ==>> transfuse 06/08, 06/15 # Leukocytosis likely related to suspected COVID-19 virus infection --> completed plaquenil --> trend smear as needed --> wbc trend: 4-->11-->14.5-->21-->26-->21->24--.28-->23-->19-->16.2-->21--> 11.2 -->12.5-->12.3-->12.4-->18.5-->18.5-->17->13-->18.2-->22.2-->25-->17.4-->17 -->14.2-->14-->16-->15.5-->9->17->11.5-->12->12-->18->15->9.8 --> pulm is aware --> on abx cefepime/vanc->zosyn/vanc-->dom/vanc-->dom-->levaquin/cefepime--> vanc/zosyn --> vanc --> pressors as needed --> 06/27 covid 19++ --> pressors as needed in icu --> c diff negative 08/08 --> blood cx++ # Thrombocytopenia/Lymphopenia --> likely related to covid19 --> plt 129k-->186k-->251-->285-->384 -->430-->539-->515-->447-->451-->404-->544 -->244 -->393 # Respiratory failure with covid19+ --> s/p vent/trach --> weaning # Possible Pneumonia --> abx completed --> 07/13 cxr: Improved right lung infiltrates. # Cardiomegaly # Transaminitis with Elevated AST # COPD # Chronic Kidney Disease --> per renal hd --> s/p right femoral cath 07/02 # Hypertension # peg # Dvt ppx lovenox Appreciate consultation and dw Rn Subjective Constitutional: Denies: no symptoms, chills, fever, malaise, weakness, other HEENT: Denies: no symptoms, eye pain, blurred vision, tearing, double vision, ear pain, ear discharge, nose pain, nose congestion, throat pain, throat swelling, mouth pain, mouth swelling, other Cardiovascular: Denies: no symptoms, chest pain, edema, irregular heart rate, lightheadedness, palpitations, syncope, other Respiratory: Denies: no symptoms, cough, shortness of breath, SOB with excertion, SOB at rest, sputum, wheezing, other Gastrointestinal/Abdominal: Denies: no symptoms, abdomen distended, abdominal pain, black stools, tarry stools, blood in stool, constipated, diarrhea, difficulty swallowing, nausea, poor appetite, poor fluid intake, rectal bleeding , vomiting, other Genitourinary: Denies: no symptoms, burning, discharge, frequency, flank pain, hematuria, incontinence, pain, urgency, other Neurologic/Psychiatric: Denies: no symptoms, anxiety, depressed, emotional problems, headache, numbness, paresthesia, pre-existing deficit, seizure, tingling, tremors, weakness, other Endocrine: Denies: no symptoms, excessive sweating, flushing, intolerance to cold, intolerance to heat, increased hunger, increased thirst, increased urine, unexplained weight gain, unexplained weight loss, other Allergies: Coded Allergies: No Known Allergies (Unverified , 05/28/19) Subjective 06/01 nv, extremely agitated, not allowing labs draws, no night sweats, cbc ordered 06/02 confused, restraints, on abx and plaquenil, hgb 7.9, nrb 15 L 06/03 is with nonrebreather, but not compliant, remains confused 06/05 no bleeding, labs noted, no major bleeding, otherwise comfortable 06/06 labs reviewed, no bleeding, meds noted, no night sweats, on levo and nonrebreather 06/07 labs noted, no bleeding, meds reviewed, no bleeding, wbc higher 06/08 to get 2 units prbc, no night sweats, meds reviewed 06/09 is on cefepime and vanc, labs noted, ernesto Rn, no bleeding 06/10 no major changes, labs reviewed, wbc 28k, on abx, cefepime 06/12 remains in icu, labs noted, no night sweats or bleeding 06/13 sluggish pupils, remains agitated, per psych, no bleding, on vent, wbc sitll high 06/14 still confused, remains on vent, with ng, running nepro, on pressors 06/15 icu, febrile, non verbal, hgb 7.1, blood pending, completed plaq 06/16 remains in the icu, nonverbal, plan for hd tomorrow, ernesto rn 06/17 in icu, on pressor, nonverbal, on abx, no bleeding 06/19 no bleeding, nonverbal in icu, hgb is 7.7 06/20 on zosyn, tube feeds, vent, labs noted, in icu, nv 06/21 gettng hd as per renal, in icu, nv, no bleeding, tfs 06/22 icu, cxr with slight improvement, cooling blanket, weaning today 06/23 wewaning, in icu, on vent, abx, and pressors as needed, labs noted 06/24 failed weaning, off abx, completed plaquenil, hgb 8.1 06/26 icu, weaning for this am, afebrile, hgb 8 06/27 in icu, remains comotose, weaning started on peep, no night sweats 06/28 weaning today, off abx, restraints, no distress, h/h stable 06/29 covid 19+, failed weaning, no blood transfusion needed 06/30 icu, on vent, labs reviewed, no distress 07/01 in icu, may need trach, remains on hd per renal, labs noted 07/02 s/p right fem cath, failed wean, no new orders, h/h stable 07/03 is somewhat more responsive, on abx, no bleeding, weaning and HD today 07/04 hd as per renal, weaning off vent, no bleeding today 07/05 obtunded, no bleding overnight, with hd for tomorrow noted, vanc 07/08 no events, remains with trach/vent, ernesto Rn, no bleeding, cbc is noted 07/09 no overnight events, peg for friday pending consent 07/10 off pressors, vent, restraints, labs reviewed 07/11 no acute events is on pressors, intubated, agitated still 07/12 is resting comfortably, no bleeding, emds reviewed and noted 07/13 icu, no events, trach, cxr reviewed, 07/14 is onv ent, tachypneic and tachycardic, labs noted 07/15 remains confused, intubated, ernesto Rn, no bleeding 07/17 icu, cxr improving infiltrates, levo gtt, airborne/contact isolation 07/18 is on broad spectrum abx, is on levaquin and cefepime, wbc 16 agitated 07/19 icu, levo gtt, cxr unchanged, tachy, hd thursday 07/20 sedated, safety restraints, labs reviewed 07/21 hd was done yesterday, lower pressor requirements, wbc is worse, on abx 07/22 icu, meds and labs reviewed, vent, no distress 07/24 on vent, in icu, labs noted, remains agitated, and confused 07/25 remains obtunded, on vent, on pressor, hgb 9, wbc elev 07/26 icu, levo gtt, vent, iv abx, nonverbal 07/27 failed weaning, labs reviewed, repeat covid swab pending 07/28 labs are noted, no bleeding, on vent/trach gtube feeds dw rn 07/29 iuc, restraints, no new changes, vent 07/31 is asleep, comfortable, no events, labs reviewed, restraints+ 08/01 no events, agitated, no bleeding, meds noted, on gtube feeds 08/02 remains on vent, no bleeding, wbc higher 19, hgb 9, on abx 08/03 labs noted, on vent, no bleeding, wbc 17, hgb better 08/04 labs reviewed, no bleeding, does not require prbc, on vent 08/05 more alert, is on trach, vent, no major events, no bleeding, peg+ 08/07 no bleeding no chills, no night sweats, is on vent/trach 08/08 recent covid swab negative, restraints, cxr unchanged 08/09 c diff negative, zosyn, hd today, gtf 08/10 no overnight events, labs reviewed, afebrile 08/11 labs reviewed, meds noted, no fc, no major changes, wbc 12 08/12 abx changed to flucon, on abx, wbc 12 / bp on low end, blood cx++, vanc, vent 08/15 no bleeding, no night sweats, on abx, trach/vent 08/16 is able to nod head in response to question, labs noted, on vent/trach 08/17 labs reviewed, hgb 9.8, no bleeding, on abx, meds noted 08/18 labs noted, no bleeding, hgb stable, 9.9, mildly alert 08/19 labs are noted, no bleeding, meds reviewed, line holiday per surg 08/21 labs noted, meds reviewed, no bleeding hgb 8.7 08/22 labs reviewed, no bleeding, meds noted, no night sweats hgb 8.4 08/23 labs ar enoted, no bleeidng, hgb 8, no hemolysis, with rectal tube Objective Objective Current Medications Medications (Trade) Dose Ordered Sig/Anthony Route PRN Reason Start Time Stop Time Status Last Admin Dose Admin Acetaminophen (Tylenol) 650 mg Q4H PRN NG For Pain 08/04/19 21:38 09/03/19 21:37 08/23/19 12:26 Acetaminophen (Tylenol) 650 mg Q4H PRN NG Temp >100.5 08/15/19 13:30 09/08/19 08:29 08/23/19 23:24 Chlorhexidine Gluconate (Michelle-Hex 2%) 1 applic DAILY@2000 TOPIC 08/21/19 20:00 11/19/19 19:59 08/23/19 20:02 Dextrose (Dextrose 50%) 25 ml Q30M PRN IV Hypoglycemia 08/04/19 22:00 09/18/19 19:29 Dextrose (Dextrose 50%) 50 ml Q30M PRN IV Hypoglycemia 08/04/19 22:00 09/18/19 19:29 Diphenoxylate HCl/ Atropine (Lomotil) 2.5 mg BID ORAL 08/18/19 18:00 09/17/19 17:59 08/24/19 09:01 Enoxaparin Sodium (Lovenox) 30 mg DAILY SUBQ 08/05/19 09:00 08/27/19 08:59 08/24/19 09:03 Epoetin Aftab (Epoetin Aftab(ESRD on dialysis)) 10,000 unit FRI-FRI-FRI SUBQ 08/11/19 21:00 11/09/19 20:59 08/23/19 20:02 Fluconazole (Diflucan) 200 mg DAILY NG 08/13/19 10:24 08/30/19 10:23 08/24/19 09:01 Haloperidol Lactate 5 mg/ Dextrose 56 ml @ 224 mls/hr Q6H PRN IVPB Agitation 08/04/19 21:38 09/18/19 21:37 08/19/19 02:26 Hydralazine HCl (Apresoline) 10 mg Q4H PRN IV Blood pressure over 160 systol 08/04/19 21:39 11/02/19 21:38 Insulin Aspart (NovoLOG) EVERY 6 HOURS SUBQ 08/05/19 00:00 09/19/19 00:00 08/24/19 05:25 Loperamide HCl (Imodium) 2 mg Q6H NG 08/18/19 14:00 09/15/19 13:59 08/24/19 09:01 Midodrine (Pro-Amatine) 10 mg THREE TIMES A DAY NG 08/15/19 18:00 11/13/19 17:59 08/24/19 09:01 Pantoprazole (Protonix) 40 mg DAILY IVP 08/05/19 09:00 08/26/19 08:59 08/24/19 09:01 Potassium Chloride 100 ml @ 100 mls/hr Q1H IVPB 08/24/19 10:00 08/24/19 11:59 08/24/19 10:10 Sodium Chloride 200 ml @ 100 mls/hr Q2H IV 08/24/19 10:00 08/24/19 11:59 08/24/19 10:10 Vancomycin HCl (Vanco pharmacy to dose) 1 ea DAILY PRN MISC Per rx protocol 08/15/19 08:45 09/14/19 08:44 Last 24 Hour Vital Signs Date Time Temp Pulse Resp B/P (MAP) Pulse Ox O2 Delivery O2 Flow Rate FiO2 08/24/19 09:16 100 08/24/19 08:00 30 08/24/19 08:00 98.2 85 20 128/83 (98) 100 08/24/19 07:55 83 33 30 08/24/19 04:00 Mechanical Ventilator Mechanical Ventilator 08/24/19 04:00 98.9 82 20 114/69 (84) 100 08/24/19 04:00 30 08/24/19 03:42 89 08/24/19 03:05 90 30 30 08/24/19 00:00 Mechanical Ventilator Mechanical Ventilator 08/24/19 00:00 100.4 92 26 130/78 (95) 99 08/24/19 00:00 30 08/23/19 23:54 99.5 08/23/19 23:30 85 08/23/19 22:53 94 32 30 08/23/19 20:00 98.7 92 22 130/67 (88) 100 08/23/19 20:00 Mechanical Ventilator Mechanical Ventilator 08/23/19 20:00 30 08/23/19 19:42 107 08/23/19 19:19 94 28 30 08/23/19 16:00 79 08/23/19 16:00 30 08/23/19 16:00 Mechanical Ventilator Mechanical Ventilator 08/23/19 16:00 98.4 85 20 101/64 (76) 100 08/23/19 15:15 89 29 30 08/23/19 12:00 30 08/23/19 12:00 98.2 94 20 113/65 (81) 100 08/23/19 12:00 86 08/23/19 12:00 Mechanical Ventilator Mechanical Ventilator 08/23/19 11:05 91 30 30 08/23/19 08:00 98.2 98 20 105/62 (76) 100 08/23/19 08:00 93 08/23/19 08:00 Mechanical Ventilator Mechanical Ventilator 08/23/19 08:00 30 08/23/19 07:15 99 29 30 08/23/19 06:46 98.6 92 24 104/59 (74) 100 08/23/19 04:00 30 08/23/19 04:00 98.4 97 24 114/62 (79) 100 08/23/19 04:00 Mechanical Ventilator Mechanical Ventilator 08/23/19 03:34 94 26 30 08/23/19 03:30 85 08/23/19 00:00 95 08/23/19 00:00 Mechanical Ventilator Mechanical Ventilator 08/23/19 00:00 99.1 100 24 89/50 (63) 99 08/22/19 23:54 100 34 30 08/22/19 20:00 Mechanical Ventilator Mechanical Ventilator 08/22/19 20:00 99.9 101 24 92/52 (65) 100 08/22/19 20:00 30 08/22/19 19:59 107 08/22/19 19:23 107 26 30 08/22/19 18:10 101.3 103 24 100 08/22/19 17:26 101.5 110 24 100 08/22/19 16:00 Mechanical Ventilator Mechanical Ventilator 08/22/19 16:00 103 08/22/19 16:00 97.7 111 24 143/68 (93) 100 08/22/19 16:00 30 08/22/19 15:25 105 31 30 08/22/19 12:16 100 08/22/19 12:00 Mechanical Ventilator Mechanical Ventilator 08/22/19 12:00 30 08/22/19 12:00 96 08/22/19 12:00 97.9 97 24 112/71 (85) 100 08/22/19 10:56 95 33 30 Intake and Output 08/23/19 08/24/19 19:00 07:00 Intake Total 580 ml 640 ml Output Total 10 ml Balance 570 ml 640 ml Free Water 100 ml 200 ml Tube Feeding 480 ml 440 ml Stool Total 10 ml # Bowel Movements 3 5 Labs Test 08/21/19 11:42 08/21/19 17:25 08/22/19 00:03 08/22/19 05:57 POC Whole Blood Glucose 222 MG/DL (74-106) 194 MG/DL (74-106) Test 08/22/19 07:50 08/22/19 12:17 08/22/19 17:27 08/22/19 22:59 White Blood Count 15.2 K/UL (4.8-10.8) Red Blood Count 3.11 M/UL (4.70-6.10) Hemoglobin 8.7 G/DL (14.2-18.0) Hematocrit 28.3 % (42.0-52.0) Mean Corpuscular Volume 91 FL (80-99) Mean Corpuscular Hemoglobin 28.1 PG (27.0-31.0) Mean Corpuscular Hemoglobin Concent 30.8 G/DL (32.0-36.0) Red Cell Distribution Width 17.5 % (11.6-14.8) Platelet Count 446 K/UL (150-450) Mean Platelet Volume 6.7 FL (6.5-10.1) Neutrophils (%) (Auto) 77.1 % (45.0-75.0) Lymphocytes (%) (Auto) 10.8 % (20.0-45.0) Monocytes (%) (Auto) 8.4 % (1.0-10.0) Eosinophils (%) (Auto) 3.1 % (0.0-3.0) Basophils (%) (Auto) 0.6 % (0.0-2.0) Sodium Level 135 MMOL/L (136-145) Potassium Level 3.7 MMOL/L (3.5-5.1) Chloride Level 94 MMOL/L (98-107) Carbon Dioxide Level 22 MMOL/L (21-32) Anion Gap 19 mmol/L (5-15) Blood Urea Nitrogen 104 mg/dL (7-18) Creatinine 10.3 MG/DL (0.55-1.30) Estimat Glomerular Filtration Rate 5.1 mL/min (>60) Glucose Level 191 MG/DL (74-106) Calcium Level 9.3 MG/DL (8.5-10.1) POC Whole Blood Glucose 231 MG/DL (74-106) 187 MG/DL (74-106) Test 08/23/19 05:32 08/23/19 06:13 08/23/19 12:23 08/23/19 17:18 White Blood Count 11.9 K/UL (4.8-10.8) Red Blood Count 3.04 M/UL (4.70-6.10) Hemoglobin 8.4 G/DL (14.2-18.0) Hematocrit 27.9 % (42.0-52.0) Mean Corpuscular Volume 92 FL (80-99) Mean Corpuscular Hemoglobin 27.7 PG (27.0-31.0) Mean Corpuscular Hemoglobin Concent 30.2 G/DL (32.0-36.0) Red Cell Distribution Width 17.8 % (11.6-14.8) Platelet Count 397 K/UL (150-450) Mean Platelet Volume 6.9 FL (6.5-10.1) Neutrophils (%) (Auto) 76.1 % (45.0-75.0) Lymphocytes (%) (Auto) 10.4 % (20.0-45.0) Monocytes (%) (Auto) 10.0 % (1.0-10.0) Eosinophils (%) (Auto) 2.6 % (0.0-3.0) Basophils (%) (Auto) 1.0 % (0.0-2.0) Sodium Level 142 MMOL/L (136-145) Potassium Level 3.1 MMOL/L (3.5-5.1) Chloride Level 100 MMOL/L (98-107) Carbon Dioxide Level 27 MMOL/L (21-32) Blood Urea Nitrogen 57 mg/dL (7-18) Creatinine 6.4 MG/DL (0.55-1.30) Estimat Glomerular Filtration Rate 8.8 mL/min (>60) Glucose Level 241 MG/DL (74-106) Calcium Level 8.6 MG/DL (8.5-10.1) Phosphorus Level 3.9 MG/DL (2.5-4.9) Magnesium Level 2.0 MG/DL (1.8-2.4) Total Bilirubin 0.4 MG/DL (0.2-1.0) Aspartate Amino Transf (AST/SGOT) 15 U/L (15-37) Alanine Aminotransferase (ALT/SGPT) 10 U/L (12-78) Alkaline Phosphatase 103 U/L (46-116) Total Protein 7.9 G/DL (6.4-8.2) Albumin 2.5 G/DL (3.4-5.0) Globulin 5.4 g/dL Albumin/Globulin Ratio 0.5 (1.0-2.7) Random Vancomycin Level 15.9 ug/mL Test 08/23/19 23:17 08/24/19 04:00 08/24/19 04:53 08/24/19 09:48 White Blood Count 9.8 K/UL (4.8-10.8) Red Blood Count 2.87 M/UL (4.70-6.10) Hemoglobin 8.0 G/DL (14.2-18.0) Hematocrit 26.3 % (42.0-52.0) Mean Corpuscular Volume 92 FL (80-99) Mean Corpuscular Hemoglobin 27.9 PG (27.0-31.0) Mean Corpuscular Hemoglobin Concent 30.4 G/DL (32.0-36.0) Red Cell Distribution Width 17.9 % (11.6-14.8) Platelet Count 392 K/UL (150-450) Mean Platelet Volume 6.5 FL (6.5-10.1) Neutrophils (%) (Auto) 76.0 % (45.0-75.0) Lymphocytes (%) (Auto) 10.8 % (20.0-45.0) Monocytes (%) (Auto) 9.6 % (1.0-10.0) Eosinophils (%) (Auto) 2.8 % (0.0-3.0) Basophils (%) (Auto) 0.9 % (0.0-2.0) Sodium Level 141 MMOL/L (136-145) Potassium Level 3.1 MMOL/L (3.5-5.1) Chloride Level 100 MMOL/L (98-107) Carbon Dioxide Level 25 MMOL/L (21-32) Anion Gap 16 mmol/L (5-15) Blood Urea Nitrogen 67 mg/dL (7-18) Creatinine 7.3 MG/DL (0.55-1.30) Estimat Glomerular Filtration Rate 7.5 mL/min (>60) Glucose Level 203 MG/DL (74-106) Calcium Level 9.1 MG/DL (8.5-10.1) Phosphorus Level 4.3 MG/DL (2.5-4.9) Magnesium Level 1.9 MG/DL (1.8-2.4) Total Bilirubin 0.4 MG/DL (0.2-1.0) Aspartate Amino Transf (AST/SGOT) 18 U/L (15-37) Alanine Aminotransferase (ALT/SGPT) 8 U/L (12-78) Alkaline Phosphatase 111 U/L (46-116) C-Reactive Protein, Quantitative 35.3 mg/dL (0.00-0.90) Pro-B-Type Natriuretic Peptide 77222 pg/mL (0-125) Total Protein 7.9 G/DL (6.4-8.2) Albumin 2.6 G/DL (3.4-5.0) Globulin 5.3 g/dL Albumin/Globulin Ratio 0.5 (1.0-2.7) POC Whole Blood Glucose 185 MG/DL (74-106) Arterial Blood pH 7.397 (7.350-7.450) Arterial Blood Partial Pressure CO2 37.5 mmHg (35.0-45.0) Arterial Blood Partial Pressure O2 114.0 mmHg (75.0-100.0) Arterial Blood HCO3 22.6 mmol/L (22.0-26.0) Arterial Blood Oxygen Saturation 97.9 % (95-100) Arterial Blood Base Excess -2.0 (-2-2) Kosta Test Positive Height (Feet): 6 Height (Inches): 1.00 Weight (Pounds): 171 Objective General: nv, confused, sedated Heent: bilateral eye normal inspection, bilateral eye PERRL ++Ng Respiratory: normal breath sounds, no respiratory distress, intubated/vent +++ trach+++ Cardiovascular: regular rate, rhythm, no edema Gastrointestinal: normal inspection, soft, non-distended, peg+ Rectal: deferred Musculoskeletal: normal range of motion, non-tender, R fem cath++ Neurologic: alert, motor strength/tone normal, sensory intact, responsive, speech normal Skin: Decubitus/Ulcer - See RN skin exam. : hinton+ Kleynberg,Greg L. MD Aug 24, 2019 10:21
--- NOTE | 2019-08-24 10:58 | Nephrology Progress Note ---
Assessment/Plan Problem List: (1) CASSANDRA (acute kidney injury) (2) Anemia in chronic kidney disease (CKD) (3) HTN (hypertension) (4) COVID-19 Assessment Acute renal failure most likely superimposed on chronic kidney disease Suspected COVID-19 virus infection Possible Pneumonia, lymphopenia, elevated AST Cardiomegaly, possible CHF COPD Hypertension Anemia, most likely related to chronic kidney disease Plan August 23: Labs reviewed. Potassium supplement given. Blood pressure is stable. Due for dialysis tomorrow. No ultrafiltration will be done. August 22: Patient was dialyzed yesterday. Pressure low today. 500 cc albumin ordered. Continue to monitor renal parameters. Continue to be on Midodrin. August 21: A temporary catheter for dialysis was put in yesterday, and the patient is due for dialysis today. Continue per consultants. August 20: Patient due for insertion of a temporary dialysis catheter. I ordered dialysis for tomorrow August 21. Continue per consultants. Discussed with Donna " August 19: Permacath discontinued. Due for temporary non-tunneled dialysis access. White blood cells are up to over 14,000. Will dialyze as needed. August 18: Discussed with ID and general surgery. Will remove the permacath which is thought to be infected by IR today. Will monitor renal parameters. Will obtain surveillance cultures tomorrow. Will attempt to put a temporary dialysis access in 48 to 72 hours for dialysis purposes. August 17: Last dialysis August 15, no blood work done today yet. Will reassess if dialysis should be continued. Continue per current management. We will make arrangement to DC permacath and reinsert a new one via general surgery and or interventional radiology August 16: Albumin for low BP. Continue to monitor renal parameters. August 15: Due for dialysis today. Remains borderline low. No ultrafiltration during dialysis. Discussed with SHANIQUE Macdonald. August 14: No labs done today. Patient hypotensive. Normal saline and albumin bolus given. Midodrin started. Will check lab tomorrow. August 13: Lab reviewed. Last dialysis yesterday. Next dialysis August 15. Potassium and phosphorus supplement given. Continue per consultants. August 12: No can panel done today. Due for dialysis today. Continue per consultants. August 11: Patient labs reviewed. Will order dialysis tomorrow. Continue per consultants. August 10: Patient was dialyzed yesterday. Today's labs checked. Stable from renal standpoint to view August 09: Patient scheduled for hemodialysis today. Will check labs tomorrow. August 08: Lab reviewed. Hemodialysis scheduled for tomorrow. August 07: Dialyzed yesterday. No labs drawn today. Will check labs tomorrow. Continue per consultants. August 06: Patient on dialysis now. Discussed with dialysis nurse. Slight catheter malfunction persist. August 05: Labs reviewed. Dialysis scheduled for tomorrow. Continue per consultants. August 04: No labs done today. Dialyzed yesterday. Check labs tomorrow. Continue per consultants. August 03: Lab reviewed. Due for dialysis today. White blood cell 17,500. August 02: Lab reviewed. Low phosphorus replaced. Hemodialysis ordered for tomorrow. White blood cells over 18,000. August 01: Labs reviewed. Potassium replacement ordered. Remains full code on ventilator via trach. Continue per consultants. July 31: Dialyzed yesterday. No can panel today. Remains full code. Remains on ventilator. Being fed through PEG. Continue per consultants. July 30: Patient due for dialysis today. Labs are reviewed. Remains full code. Status post trach to ventilator. Status post PEG. July 29: Patient dialyzed yesterday. Due for dialysis tomorrow. Remains in ICU. Full code. Status post trach tube to ventilator. Status post PEG. July 28: Due for dialysis today. Labs reviewed. Full code. Patient trached and vented. July 27: Last COVID test negative. COVID test will be repeated tomorrow. Will order dialysis tomorrow. Remains full code. Medication list and labs reviewed. July 26: No labs done today. Dialysis done yesterday. Will check lab tomorrow. Dialysis as needed. July 25: Lab reviewed. Dialysis today. Discussed with RN. July 24: Lab reviewed. Do dialysis tomorrow. Discussed with RN. July 23: Lab reviewed. Dialyzed yesterday. Discussed with RN. Remains full code. Next dialysis July 25. Will check labs tomorrow. July 22: Labs reviewed. Due for dialysis today. Discussed with RN. Watch borderline low blood pressure. Discussed with dialysis nurse. July 21: Today's lab reviewed. Will arrange for dialysis tomorrow. Discussed with RN. Aim to keep the blood pressure above 100 systolic. Continue per consultants. July 20: Patient was dialyzed yesterday. Could not ultrafiltrate much due to low blood pressure. Discussed with SHANIQUE Dick today. No labs drawn today. Continue per consultants. July 19: Due for dialysis today. Discussed with SHANIQUE Dick. Continue per consultants. July 18: Dialyzed July 16. Will order dialysis tomorrow July 19. Continues to be on ventilator through trach. No labs done today. Continue per consultants. July 17: Dialyzed yesterday. Stable from renal standpoint of view. Remains full code. Status post trach on vent. Status post PEG. Continue per consultants. July 16: Dialysis today. Will resume Midodrin to prevent hypotension. Patient remains full code. July 15: Dialyzed yesterday, due for dialysis tomorrow. Labs and medication list reviewed. Continue per consultants. Patient remains full code. COVID-19 detected again. July 14: Patient currently on dialysis. This is continuation of dialysis from yesterday as yesterday's dialysis was cut short due to catheter malfunction. Labs and medication reviewed. Continue per consultants. July 13: Patient currently on hemodialysis. The dialysis catheter which is a intrajugular Kamlesh has poor flow. Will try TPA. Continue per consultants. July 12: Due for PEG today. Due for dialysis tomorrow. Continue per consultants. Discussed with RN. July 11: Plan for dialysis today. Discussed with RN. Data reviewed. July 10: Plan for dialysis tomorrow July 11. Waiting for consent to proceed with PEG. Continue per consultants. Medication reviewed. Labs reviewed. Discussed with RN. July 09: Dialyzed yesterday. Labs reviewed. Medication reviewed. Next hemodialysis July 11. July 08: Patient has tracheostomy now. Connected to ventilator. Due for dialysis today. Continue per consultants. Discussed with SHANIQUE Romero. July 07: Patient is due for tracheostomy today. Patient was last dialyzed July 05. Will order dialysis for tomorrow. July 06: Patient is intubated on ventilator however the plan is to extubate today. Patient was dialysis yesterday July 05. The dialysis time was cut short due to patient's respiratory distress. Only 1 L was removed during dialysis yesterday. Today's lab reviewed. Continue per consultants. Will arrange for dialysis as needed. July 05: Patient due for dialysis today. Remains intubated. Will schedule permacath placement in a.m. blood cultures on July 04 are negative. July 04: Patient was dialyzed yesterday. Due for dialysis tomorrow. Continues to be intubated. After tomorrow's dialysis will order a permacath. July 03: Dialysis is about to be started now Continues to be intubated Will plan to remove the femoral dialysis catheter and exchanged for a new temporary catheter per ID recommendation We will check surveillance blood culture tomorrow July 02: Patient was dialyzed yesterday and due for dialysis tomorrow Stable from renal standpoint W on dialysis Continue per consultants, weaning....... etc. July 01: Dialysis today Other status unchanged June 30: Due for dialysis tomorrow Remains intubated on ventilator Labs and medication reviewed Discussed with RN Stable from renal standpoint of view June 29: Dialyzed yesterday Due for dialysis tomorrow Stable from renal standpoint to view Keeps failing weaning process June 28: Patient due for dialysis today Stable from renal standpoint to view Continue per consultants June 27: Labs reviewed Due due for dialysis June 28 Discussed with SHANIQUE Silverman per consultants Remains intubated on ventilator June 26 Labs reviewed Dialyzed yesterday Started on weaning today Continue to monitor renal parameters June 25: On dialysis now Potassium supplement implemented Continue per consultants Next dialysis June 27June 15: Status unchanged Dialyzed yesterday will dialyze again tomorrow Potassium supplements given Discussed with RN June 14: Due dialysis today Status: Remains intubated on ventilator June 22: Status unchanged Dialyzed yesterday and duefordialysistomorrow Serum sodium stable today June 21 Remains intubated on ventilator Due dialysis today Emphasized high sodium bath for dialysis June 20: Remains intubated on ventilator Dialyzed June 19 next dialysis June 21 Serum sodium 128, will give 250 cc 3% saline Remains full code Discussed with RN Iron panel ordered June 19: Discussed with RN. Patient due for dialysis today. Continue pulmonary support. Remains full code. June 18: Patient dialyzed yesterday June 17 Serum sodium improved but still low Arrange for dialysis tomorrow June 19 Continue per consultants June 17: Due for dialysis today Today's lab reviewed, low serum sodium noted, Emphasized on high sodium bath to dialysis nurse Discussed with SHANIQUE Yuen June 16: Dialyzed yesterday Remains intubated Labs reviewed, serum sodium 131 Plan to dialyze tomorrow June 17 with high sodium bath Discussed with SHANIQUE Yuen June 6: Due for dialysis today Labs reviewed Discussed with RN Transfuse 1 unit of packed RBCs today for low hemoglobin of 7.1 June 5: Blood pressure well maintained Receive dialysis June 13 next hemodialysis June 15June 4: Discussed with RN in ICU Patient did not receive proper dialysis yesterday due to dialysis catheter malfunction Catheter to be adjusted today and dialyzed to be resumed today Continue per consultants Positive for COVID 28 June 2: Patient now intubated on mechanical ventilation Discussed with RN Alpa, today June 12 Patient received dialysis yesterday June 10 next hemodialysis June 12 Blood pressure better maintained Today's labs reviewed Continue per consultants Previously patient received dialysis last evening June 05, next dialysis June 07 which was incomplete due to patient's hypotension Will start on midodrine for blood pressure support. Meanwhile continue other pressors as needed Previously Patient is doing poorly, septic, white blood cells are rising, Hypotension somewhat improved We will keep n.p.o. , NG tube for medications, and change medication to IV as needed Patient remains full code Monitor vancomycin level Previously: Patient pulled out his femoral catheter yesterday June 03 which was reinserted by Dr. Mast Patient scheduled for dialysis again June 04, which again was not done due to dialysis nurse citing catheter malfunction Meanwhile continue management per ID, pulmonary , and psych. Meanwhile white blood cell count is rising. Patient blood pressure borderline low. Will check ABG Previously May 31 : I believe patient need dialysis treatment He however needs to competency assessment if can make decisions or not I will communicate with Dr. Mulligan Previously: Per pulmonary and ID advice Adjust blood pressure medication Renal diet Anemia work-up 2D echocardiogram refused Kidney ultrasound refused Jules catheter Urine studies Per orders Subjective ROS Limited/Unobtainable: Yes Objective Objective Last 24 Hour Vital Signs Date Time Temp Pulse Resp B/P (MAP) Pulse Ox O2 Delivery O2 Flow Rate FiO2 08/24/19 09:16 100 08/24/19 08:00 30 08/24/19 08:00 98.2 85 20 128/83 (98) 100 08/24/19 07:55 83 33 30 08/24/19 04:00 Mechanical Ventilator Mechanical Ventilator 08/24/19 04:00 98.9 82 20 114/69 (84) 100 08/24/19 04:00 30 08/24/19 03:42 89 08/24/19 03:05 90 30 30 08/24/19 00:00 Mechanical Ventilator Mechanical Ventilator 08/24/19 00:00 100.4 92 26 130/78 (95) 99 08/24/19 00:00 30 08/23/19 23:54 99.5 08/23/19 23:30 85 08/23/19 22:53 94 32 30 08/23/19 20:00 98.7 92 22 130/67 (88) 100 08/23/19 20:00 Mechanical Ventilator Mechanical Ventilator 08/23/19 20:00 30 08/23/19 19:42 107 08/23/19 19:19 94 28 30 08/23/19 16:00 79 08/23/19 16:00 30 08/23/19 16:00 Mechanical Ventilator Mechanical Ventilator 08/23/19 16:00 98.4 85 20 101/64 (76) 100 08/23/19 15:15 89 29 30 08/23/19 12:00 30 08/23/19 12:00 98.2 94 20 113/65 (81) 100 08/23/19 12:00 86 08/23/19 12:00 Mechanical Ventilator Mechanical Ventilator 08/23/19 11:05 91 30 30 Intake and Output 08/23/19 08/24/19 19:00 07:00 Intake Total 580 ml 640 ml Output Total 10 ml Balance 570 ml 640 ml Free Water 100 ml 200 ml Tube Feeding 480 ml 440 ml Stool Total 10 ml # Bowel Movements 3 5 Laboratory Tests 08/23/19 12:23: POC Whole Blood Glucose [Pending] 08/23/19 17:18: POC Whole Blood Glucose [Pending] 08/23/19 23:17: POC Whole Blood Glucose [Pending] 08/24/19 04:00: White Blood Count 9.8, Red Blood Count 2.87L, Hemoglobin 8.0L, Hematocrit 26.3L , Mean Corpuscular Volume 92, Mean Corpuscular Hemoglobin 27.9, Mean Corpuscular Hemoglobin Concent 30.4L, Red Cell Distribution Width 17.9H, Platelet Count 392, Mean Platelet Volume 6.5, Neutrophils (%) (Auto) 76.0H, Lymphocytes (%) (Auto) 10.8L, Monocytes (%) (Auto) 9.6, Eosinophils (%) (Auto) 2.8, Basophils (%) (Auto) 0.9, Sodium Level 141, Potassium Level 3.1L, Chloride Level 100, Carbon Dioxide Level 25, Anion Gap 16H, Blood Urea Nitrogen 67H, Creatinine 7.3H, Estimat Glomerular Filtration Rate 7.5, Glucose Level 203H, Calcium Level 9.1, Phosphorus Level 4.3, Magnesium Level 1.9, Total Bilirubin 0.4, Aspartate Amino Transf (AST/SGOT) 18, Alanine Aminotransferase (ALT/SGPT) 8L, Alkaline Phosphatase 111, C-Reactive Protein, Quantitative 35.3H, Pro-B- Type Natriuretic Peptide 31809I, Total Protein 7.9, Albumin 2.6L, Globulin 5.3, Albumin/Globulin Ratio 0.5L 08/24/19 04:53: POC Whole Blood Glucose 185H 08/24/19 09:48: Arterial Blood pH 7.397, Arterial Blood Partial Pressure CO2 37.5, Arterial Blood Partial Pressure O2 114.0H, Arterial Blood HCO3 22.6, Arterial Blood Oxygen Saturation 97.9, Arterial Blood Base Excess -2.0, Kosta Test Positive Height (Feet): 6 Height (Inches): 1.00 Weight (Pounds): 171 General Appearance: no apparent distress EENT: other - Trach to vent Cardiovascular: tachycardia Respiratory/Chest: decreased breath sounds Abdomen: distended, other - PEG in place Objective No change Mic Cole MD Aug 24, 2019 10:58
--- NOTE | 2019-08-24 12:52 | Surgery Progress Note ---
Surgery Progress Note Subjective Procedure Performed Insertion of left subclavian temporary hemodialysis catheter Tracheostomy exchange 8 [place]ese Shiley Additional Comments leukocytosis resolved receiving HD exam stable labs improved Objective Last 24 Hour Vital Signs Date Time Temp Pulse Resp B/P (MAP) Pulse Ox O2 Delivery O2 Flow Rate FiO2 08/24/19 11:50 97.7 85 20 115/62 (79) 98 08/24/19 09:16 100 08/24/19 08:00 30 08/24/19 08:00 98.2 85 20 128/83 (98) 100 08/24/19 08:00 91 08/24/19 07:55 83 33 30 08/24/19 04:00 Mechanical Ventilator Mechanical Ventilator 08/24/19 04:00 98.9 82 20 114/69 (84) 100 08/24/19 04:00 30 08/24/19 03:42 89 08/24/19 03:05 90 30 30 08/24/19 00:00 Mechanical Ventilator Mechanical Ventilator 08/24/19 00:00 100.4 92 26 130/78 (95) 99 08/24/19 00:00 30 08/23/19 23:54 99.5 08/23/19 23:30 85 08/23/19 22:53 94 32 30 08/23/19 20:00 98.7 92 22 130/67 (88) 100 08/23/19 20:00 Mechanical Ventilator Mechanical Ventilator 08/23/19 20:00 30 08/23/19 19:42 107 08/23/19 19:19 94 28 30 08/23/19 16:00 79 08/23/19 16:00 30 08/23/19 16:00 Mechanical Ventilator Mechanical Ventilator 08/23/19 16:00 98.4 85 20 101/64 (76) 100 08/23/19 15:15 89 29 30 I&O Intake and Output 08/23/19 08/24/19 19:00 07:00 Intake Total 580 ml 640 ml Output Total 10 ml Balance 570 ml 640 ml Free Water 100 ml 200 ml Tube Feeding 480 ml 440 ml Stool Total 10 ml # Bowel Movements 3 5 Dressing: dry Wound: clean Cardiovascular: RSR Respiratory: clear Abdomen: soft, non-tender, present bowel sounds Extremities: no edema, no tenderness, no cyanosis Laboratory Tests Test 08/23/19 17:18 7/13/20 23:17 08/24/19 04:00 08/24/19 04:53 POC Whole Blood Glucose Pending Pending 185 MG/DL (74-106) H White Blood Count 9.8 K/UL (4.8-10.8) Red Blood Count 2.87 M/UL (4.70-6.10) L Hemoglobin 8.0 G/DL (14.2-18.0) L Hematocrit 26.3 % (42.0-52.0) L Mean Corpuscular Volume 92 FL (80-99) Mean Corpuscular Hemoglobin 27.9 PG (27.0-31.0) Mean Corpuscular Hemoglobin Concent 30.4 G/DL (32.0-36.0) L Red Cell Distribution Width 17.9 % (11.6-14.8) H Platelet Count 392 K/UL (150-450) Mean Platelet Volume 6.5 FL (6.5-10.1) Neutrophils (%) (Auto) 76.0 % (45.0-75.0) H Lymphocytes (%) (Auto) 10.8 % (20.0-45.0) L Monocytes (%) (Auto) 9.6 % (1.0-10.0) Eosinophils (%) (Auto) 2.8 % (0.0-3.0) Basophils (%) (Auto) 0.9 % (0.0-2.0) Sodium Level 141 MMOL/L (136-145) Potassium Level 3.1 MMOL/L (3.5-5.1) L Chloride Level 100 MMOL/L (98-107) Carbon Dioxide Level 25 MMOL/L (21-32) Anion Gap 16 mmol/L (5-15) H Blood Urea Nitrogen 67 mg/dL (7-18) H Creatinine 7.3 MG/DL (0.55-1.30) H Estimat Glomerular Filtration Rate 7.5 mL/min (>60) Glucose Level 203 MG/DL (74-106) H Calcium Level 9.1 MG/DL (8.5-10.1) Phosphorus Level 4.3 MG/DL (2.5-4.9) Magnesium Level 1.9 MG/DL (1.8-2.4) Total Bilirubin 0.4 MG/DL (0.2-1.0) Aspartate Amino Transf (AST/SGOT) 18 U/L (15-37) Alanine Aminotransferase (ALT/SGPT) 8 U/L (12-78) L Alkaline Phosphatase 111 U/L (46-116) C-Reactive Protein, Quantitative 35.3 mg/dL (0.00-0.90) H Pro-B-Type Natriuretic Peptide 27872 pg/mL (0-125) H Total Protein 7.9 G/DL (6.4-8.2) Albumin 2.6 G/DL (3.4-5.0) L Globulin 5.3 g/dL Albumin/Globulin Ratio 0.5 (1.0-2.7) L Test 08/24/19 09:48 08/24/19 12:44 Arterial Blood pH 7.397 (7.350-7.450) Arterial Blood Partial Pressure CO2 37.5 mmHg (35.0-45.0) Arterial Blood Partial Pressure O2 114.0 mmHg (75.0-100.0) H Arterial Blood HCO3 22.6 mmol/L (22.0-26.0) Arterial Blood Oxygen Saturation 97.9 % (95-100) Arterial Blood Base Excess -2.0 (-2-2) Kosta Test Positive POC Whole Blood Glucose 207 MG/DL (74-106) H Plan Problems: (1) Suspected COVID-19 virus infection (2) HTN (hypertension) (3) CASSANDRA (acute kidney injury) Assessment & Plan: Needs urgent HD needs access patient okay and consented see note will follow with recs new line placed discussed with team and nephrology HD line functional when checked has TPA now please use appropriately Cathflo used again this flow during dialysis on 430 was low. Will monitor may need line change 5/4 plan for HD as per renal may need to take fluid off with HD edema anasarca dressings saturated and changed will monitor cont with HD IJ left line placed for HD given extent of prior line in place. leukocytosis blood cx negative may need to change out line new line okay HD going well Continue HD as tolerated May need pressors for HD as needed (4) Anemia in chronic kidney disease (CKD) (5) Anemia (6) Renal failure (7) Suspected COVID-19 virus infection Assessment & Plan: Pt deconditioned and despite all skin preventions Pt noted to have developed several pressure injuries. . Stable dry eschar noted to clefts of R and L ears. No erythema noted . DTPI noted to L trochanter. Base of injury is maroon in colour with marginal erythema along borders. Partially opened DTPI Sacrum, R and L Buttocks. Base of wound is maroon with two small open wounds L sacrum and L buttocks. Pt has an APM/MOMO Mattress overlay and is being positioned with pillows as per tolerance and within protocols. worsening despite medical efforts will cont to provide therapy Tx.Plan: Apply Cavilon Skin Barrier to both ears Daily and prn. Apply Moisture Barrier Paste to Sacrum,R and L Buttocks. Cover with Optifoam drsgs. Change every 3 days and PRN. Apply Cavilon Skin Barrier to R and L trochanter. Cover each site with Optifoam drsgs.Change every 7 days and PRN. Apply Cavilon Skin Barrier to both heels. Cover each heel with Optifoam drsg. Change every 7 days and prn. Off-load heels with pillow. Reposition at least every 2hours or as tolerated. APM/MOMO Mattress overlay. (8) COVID-19 Assessment & Plan: COVID + c diff negative febrile leukocytosis renal insufficiency see above cont resp care Rx as per ID worsening on vent support now cxr noted on pressors prognosis guarded repeat covid ++ weaning vent and pressors off slowly showing improvement slowly recovering will need trach as unable to wean vent safely [facility] s/p trach pending peg worsening on levo max (9) Sepsis Assessment & Plan: worsening leukocytosis febrile on pressors discussed with ID. lines evaluated and clean. he is septic on pressors and needs central access in difficult venous access patient blood cultures negative will monitor temp HD cath out now with permacath left tlc still subclavian needed line c/d/i line negative c diff negative wbc resolved improved d/c planning febrile leukocytosis hold d/c infectious work up in place yeast in cultures fevers persistent fungemia abx as per ID hold on line removal cont abx repeat cx Plan for line removal plan for line holiday will replace dialysis catheter PRN Hemodialysis line change August 20 Tracheostomy exchange 8 [place]ese Shiley due to balloon insufficiency August 20 Yaniv Mast Aug 24, 2019 12:52
--- NOTE | 2019-08-24 17:13 | Cardiac Electrophysiology PN ---
Assessment/Plan Assessment/Plan 1. NSTEMI type 2. Low level and flat due to renal failure. On Aspirin. EF 60%. 2. S/P Septic shock. On Abx. Better after NS and Albumin and off lopressor On Midodrine 10 tid. Had fever again 3. ESRD, on HD per Dr. Cole. S/P Left SC Kamlesh catheter placement by Dr Mast 4. VDRF due to COVID pneumonia. S/P Tracheostomy 07/08/19. 5. Atrial fib with RVR. Off Lopressor for Low BP, in SR 6. Dysphagia, S/P PEG 07/13/19 7. COPD. 8. Anemia. 9. Diarrhea DW RN Subjective Subjective In SDU on the vent via trach. Off pressors. Fio2 30%. Off isolation as Covid negative on 08/07/19. S/P subclavian Kamlesh catheter by Dr. Mast Had HD on 08/21 One liter out and other one pending tomorrow Has Diarrhea Objective Last 24 Hour Vital Signs Date Time Temp Pulse Resp B/P (MAP) Pulse Ox O2 Delivery O2 Flow Rate FiO2 08/24/19 15:07 75 46 30 08/24/19 12:00 85 08/24/19 11:55 85 37 30 08/24/19 11:50 97.7 85 20 115/62 (79) 98 08/24/19 09:16 100 08/24/19 08:00 30 08/24/19 08:00 98.2 85 20 128/83 (98) 100 08/24/19 08:00 91 08/24/19 07:55 83 33 30 08/24/19 04:00 Mechanical Ventilator Mechanical Ventilator 08/24/19 04:00 98.9 82 20 114/69 (84) 100 08/24/19 04:00 30 08/24/19 03:42 89 08/24/19 03:05 90 30 30 08/24/19 00:00 Mechanical Ventilator Mechanical Ventilator 08/24/19 00:00 100.4 92 26 130/78 (95) 99 08/24/19 00:00 30 08/23/19 23:54 99.5 08/23/19 23:30 85 08/23/19 22:53 94 32 30 08/23/19 20:00 98.7 92 22 130/67 (88) 100 08/23/19 20:00 Mechanical Ventilator Mechanical Ventilator 08/23/19 20:00 30 08/23/19 19:42 107 08/23/19 19:19 94 28 30 Intake and Output 08/23/19 08/24/19 19:00 07:00 Intake Total 580 ml 640 ml Output Total 10 ml Balance 570 ml 640 ml Free Water 100 ml 200 ml Tube Feeding 480 ml 440 ml Stool Total 10 ml # Bowel Movements 3 5 Laboratory Tests Test 08/23/19 17:18 08/23/19 23:17 08/24/19 04:00 08/24/19 04:53 POC Whole Blood Glucose Pending Pending 185 MG/DL (74-106) H White Blood Count 9.8 K/UL (4.8-10.8) Red Blood Count 2.87 M/UL (4.70-6.10) L Hemoglobin 8.0 G/DL (14.2-18.0) L Hematocrit 26.3 % (42.0-52.0) L Mean Corpuscular Volume 92 FL (80-99) Mean Corpuscular Hemoglobin 27.9 PG (27.0-31.0) Mean Corpuscular Hemoglobin Concent 30.4 G/DL (32.0-36.0) L Red Cell Distribution Width 17.9 % (11.6-14.8) H Platelet Count 392 K/UL (150-450) Mean Platelet Volume 6.5 FL (6.5-10.1) Neutrophils (%) (Auto) 76.0 % (45.0-75.0) H Lymphocytes (%) (Auto) 10.8 % (20.0-45.0) L Monocytes (%) (Auto) 9.6 % (1.0-10.0) Eosinophils (%) (Auto) 2.8 % (0.0-3.0) Basophils (%) (Auto) 0.9 % (0.0-2.0) Sodium Level 141 MMOL/L (136-145) Potassium Level 3.1 MMOL/L (3.5-5.1) L Chloride Level 100 MMOL/L (98-107) Carbon Dioxide Level 25 MMOL/L (21-32) Anion Gap 16 mmol/L (5-15) H Blood Urea Nitrogen 67 mg/dL (7-18) H Creatinine 7.3 MG/DL (0.55-1.30) H Estimat Glomerular Filtration Rate 7.5 mL/min (>60) Glucose Level 203 MG/DL (74-106) H Calcium Level 9.1 MG/DL (8.5-10.1) Phosphorus Level 4.3 MG/DL (2.5-4.9) Magnesium Level 1.9 MG/DL (1.8-2.4) Total Bilirubin 0.4 MG/DL (0.2-1.0) Aspartate Amino Transf (AST/SGOT) 18 U/L (15-37) Alanine Aminotransferase (ALT/SGPT) 8 U/L (12-78) L Alkaline Phosphatase 111 U/L (46-116) C-Reactive Protein, Quantitative 35.3 mg/dL (0.00-0.90) H Pro-B-Type Natriuretic Peptide 06546 pg/mL (0-125) H Total Protein 7.9 G/DL (6.4-8.2) Albumin 2.6 G/DL (3.4-5.0) L Globulin 5.3 g/dL Albumin/Globulin Ratio 0.5 (1.0-2.7) L Test 08/24/19 06:30 08/24/19 09:48 08/24/19 12:44 08/24/19 17:00 Hepatitis B Surface Antigen Pending Hepatitis B Surface Antibody, Quant Pending Hepatitis C Antibody Pending Arterial Blood pH 7.397 (7.350-7.450) Arterial Blood Partial Pressure CO2 37.5 mmHg (35.0-45.0) Arterial Blood Partial Pressure O2 114.0 mmHg (75.0-100.0) H Arterial Blood HCO3 22.6 mmol/L (22.0-26.0) Arterial Blood Oxygen Saturation 97.9 % (95-100) Arterial Blood Base Excess -2.0 (-2-2) Kosta Test Positive POC Whole Blood Glucose 207 MG/DL (74-106) H 123 MG/DL (74-106) H Objective HEAD AND NECK: No JVD. Tracheostomy in place. Left SC Kamlesh now in place. LUNGS: Decreased breath sounds. CARDIOVASCULAR: Regular S1 and S2. Tachycardic. ABDOMEN: Soft. PEG in place EXTREMITIES: No pitting edema. Gio Baker MD Aug 24, 2019 17:13
[2019-08-24] MEDS: Lomotil 2.5mg tab NG SCH (17:52)
[2019-08-24] MEDS: Dyna-Hex 2% Top Sol 2oz TOPIC SCH (19:52)
--- NOTE | 2019-08-24 21:08 | General Progress Note ---
Assessment/Plan Problem List: (1) HTN (hypertension) ICD Codes: I10 - Essential (primary) hypertension SNOMED: 94490893 (2) CASSANDRA (acute kidney injury) ICD Codes: N17.9 - Acute kidney failure, unspecified SNOMED: 1078051, 67642733 (3) Anemia in chronic kidney disease (CKD) ICD Codes: N18.9 - Chronic kidney disease, unspecified; D63.1 - Anemia in chronic kidney disease SNOMED: 230148005 (4) Renal failure ICD Codes: N19 - Unspecified kidney failure SNOMED: 65580685 (5) Respiratory failure requiring intubation ICD Codes: J96.90 - Respiratory failure, unspecified, unspecified whether with hypoxia or hypercapnia; A41.89 - Other specified sepsis SNOMED: 430201882, 296246069 (6) Pneumonia due to COVID-19 virus ICD Codes: U07.1 - COVID-19; J12.89 - Other viral pneumonia SNOMED: 040206571, 068702659 (7) Sepsis due to severe acute respiratory syndrome coronavirus 2 (SARS-CoV-2) ICD Codes: U07.1 - COVID-19; A41.89 - Other specified sepsis SNOMED: 824647890, 837255606 Status: progressing, unchanged Assessment/Plan: low k anemia of chronic renal disease trach and peg fungemia malnutrition .positive blood cx h/o covid Subjective ROS Limited/Unobtainable: Yes Allergies: Coded Allergies: No Known Allergies (Unverified , 05/28/19) Objective Last 24 Hour Vital Signs Date Time Temp Pulse Resp B/P (MAP) Pulse Ox O2 Delivery O2 Flow Rate FiO2 08/24/19 19:30 75 29 30 08/24/19 16:00 08/24/19 16:00 98.1 73 20 135/78 (97) 100 08/24/19 16:00 74 08/24/19 16:00 Mechanical Ventilator Mechanical Ventilator 08/24/19 15:07 75 46 30 08/24/19 12:00 08/24/19 12:00 85 08/24/19 12:00 Mechanical Ventilator Mechanical Ventilator 08/24/19 11:55 85 37 30 08/24/19 11:50 97.7 85 20 115/62 (79) 98 08/24/19 09:16 100 08/24/19 08:00 98.2 85 20 128/83 (98) 100 08/24/19 08:00 91 08/24/19 08:00 08/24/19 08:00 Mechanical Ventilator Mechanical Ventilator 08/24/19 07:55 83 33 30 08/24/19 04:00 Mechanical Ventilator Mechanical Ventilator 08/24/19 04:00 98.9 82 20 114/69 (84) 100 08/24/19 04:00 30 08/24/19 03:42 89 08/24/19 03:05 90 30 30 08/24/19 00:00 Mechanical Ventilator Mechanical Ventilator 08/24/19 00:00 100.4 92 26 130/78 (95) 99 08/24/19 00:00 30 08/23/19 23:54 99.5 08/23/19 23:30 85 08/23/19 22:53 94 32 30 Intake and Output 08/23/19 08/24/19 19:00 07:00 Intake Total 580 ml 680 ml Output Total 10 ml Balance 570 ml 680 ml Free Water 100 ml 200 ml Tube Feeding 480 ml 480 ml Stool Total 10 ml # Bowel Movements 3 5 Laboratory Tests 08/23/19 23:17: POC Whole Blood Glucose [Pending] 08/24/19 04:00: White Blood Count 9.8, Red Blood Count 2.87L, Hemoglobin 8.0L, Hematocrit 26.3L , Mean Corpuscular Volume 92, Mean Corpuscular Hemoglobin 27.9, Mean Corpuscular Hemoglobin Concent 30.4L, Red Cell Distribution Width 17.9H, Platelet Count 392, Mean Platelet Volume 6.5, Neutrophils (%) (Auto) 76.0H, Lymphocytes (%) (Auto) 10.8L, Monocytes (%) (Auto) 9.6, Eosinophils (%) (Auto) 2.8, Basophils (%) (Auto) 0.9, Sodium Level 141, Potassium Level 3.1L, Chloride Level 100, Carbon Dioxide Level 25, Anion Gap 16H, Blood Urea Nitrogen 67H, Creatinine 7.3H, Estimat Glomerular Filtration Rate 7.5, Glucose Level 203H, Calcium Level 9.1, Phosphorus Level 4.3, Magnesium Level 1.9, Total Bilirubin 0.4, Aspartate Amino Transf (AST/SGOT) 18, Alanine Aminotransferase (ALT/SGPT) 8L, Alkaline Phosphatase 111, C-Reactive Protein, Quantitative 35.3H, Pro-B- Type Natriuretic Peptide 83894O, Total Protein 7.9, Albumin 2.6L, Globulin 5.3, Albumin/Globulin Ratio 0.5L 08/24/19 04:53: POC Whole Blood Glucose 185H 08/24/19 06:30: Hepatitis B Surface Antigen [Pending], Hepatitis B Surface Antibody, Quant [ Pending], Hepatitis C Antibody [Pending] 08/24/19 09:48: Arterial Blood pH 7.397, Arterial Blood Partial Pressure CO2 37.5, Arterial Blood Partial Pressure O2 114.0H, Arterial Blood HCO3 22.6, Arterial Blood Oxygen Saturation 97.9, Arterial Blood Base Excess -2.0, Kosta Test Positive 08/24/19 12:44: POC Whole Blood Glucose 207H 08/24/19 17:00: POC Whole Blood Glucose 123H Height (Feet): 6 Height (Inches): 1.00 Weight (Pounds): 171 Karishma Mulligan MD Aug 24, 2019 21:08
--- NOTE | 2019-08-24 23:20 | Pulmonolgy Critical Care Note ---
Critical Care - Asmt/Plan Assessment/Plan: Pulmonary Progress Note HPI: Patient is a 68 year old man, senior care resident, admitted c/o shortness of breath, cough, noted to have Covid 19 Pneumonia, Respiratory Failure Remains on Ventilator, CXR stable, mild interstitial prominence, 08/22 Anemia CKD on HD, will need eventual placement, second consecutive repeat COVID19 test negative Preserved EF FIO2 30%, P5, adequate O2 sats, remains on ACVC, tolerating CPAP PS 8 day, adequate ABG, s/p Tracheostomy previously, sp PEG, sp HD line insertion ID following MRSA sputum Sp Trach change Reviewed earlier Past Medical History: COPD, CKD, Hypertension, Anemia Allergies: No Known Allergies Physical Exam Vital Signs Noted Stable on ventilator Chronically ill appearing HEENT: Trach CDI Chest: CTAB Hreart: HS1, HS2, RRR Abdomen: SNTND, Gtube Extremities: Wasted, no edema 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 Impression: COVID-19 virus infection - now Covid negative Pneumonia Respiratory failure on ventilator, wean as tolerated CKD - on HD Previous NSTEMI Hypotension resolved Cardiomegaly Fungemia MRSA sputum COPD Chronic Kidney Disease - HD H/o Hypertension Anemia Plan: trach care as is Antibiotics per ID HD per renal monitor vitals AC - wean as tolerated, PS 8 AM anxiolytics if needed 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 PRN Monitor lab data nutrition feeds Hemodialysis per Renal impression, plan, and exam edited and reviewed in detail care discussed with RN Laboratory Tests Noted: CXR: No acute changes Subjective ROS Limited/Unobtainable: Yes Allergies: Coded Allergies: No Known Allergies (Unverified , 05/28/19) Critical Care - Objective Last 24 Hour Vital Signs Date Time Temp Pulse Resp B/P (MAP) Pulse Ox O2 Delivery O2 Flow Rate FiO2 08/24/19 20:00 98.1 72 22 130/76 (94) 98 08/24/19 20:00 Mechanical Ventilator Mechanical Ventilator 08/24/19 19:39 81 08/24/19 19:30 75 29 30 08/24/19 16:00 08/24/19 16:00 98.1 73 20 135/78 (97) 100 08/24/19 16:00 74 08/24/19 16:00 Mechanical Ventilator Mechanical Ventilator 08/24/19 15:07 75 46 30 08/24/19 12:00 08/24/19 12:00 85 08/24/19 12:00 Mechanical Ventilator Mechanical Ventilator 08/24/19 11:55 85 37 30 08/24/19 11:50 97.7 85 20 115/62 (79) 98 08/24/19 09:16 100 08/24/19 08:00 98.2 85 20 128/83 (98) 100 08/24/19 08:00 91 08/24/19 08:00 08/24/19 08:00 Mechanical Ventilator Mechanical Ventilator 08/24/19 07:55 83 33 30 08/24/19 04:00 Mechanical Ventilator Mechanical Ventilator 08/24/19 04:00 98.9 82 20 114/69 (84) 100 08/24/19 04:00 30 08/24/19 03:42 89 08/24/19 03:05 90 30 30 08/24/19 00:00 Mechanical Ventilator Mechanical Ventilator 08/24/19 00:00 100.4 92 26 130/78 (95) 99 08/24/19 00:00 30 08/23/19 23:54 99.5 08/23/19 23:30 85 Accucheck: 143 Critical Care - Subjective ROS Limited/Unobtainable: Yes Condition: stable FI02: 30 Vent Support Breath Rate: 26 Vent Support Mode: CPAP Vent Tidal Volume: 500 Sputum Amount: Large PEEP: 5.0 PIP: 14 Tube Feeding Amount: 40 I&O: Intake and Output 08/23/19 08/24/19 19:00 07:00 Intake Total 580 ml 680 ml Output Total 10 ml Balance 570 ml 680 ml Free Water 100 ml 200 ml Tube Feeding 480 ml 480 ml Stool Total 10 ml # Bowel Movements 3 5 ET-Tube: 7.5 ET Position: 24 Arturo Mckeon MD Aug 24, 2019 23:20
[2019-08-25 04:00] VITALS: BP 136/76
[2019-08-25] MEDS: NovoLOG Insulin Flexpen SUBQ SCH ×3 (05:03→18:00)
[2019-08-25 08:00] VITALS: BP 128/73
--- NOTE | 2019-08-25 08:12 | Hematology/Onc Progress Note ---
Assessment/Plan Assessment/Plan Assessment and Recs: # Anemia of chronic disease, likely related ot underlying kidney disease has COIVD19++++++ --> hgb trend 9-->8-->7.3-->7.9-->6.8->9.5-->10->8.3-->7.7-->7.1-->8.9->8.8->7.7 -->8.1 ->7.9-->7.7 -->8.2-->8.1 -->7.9-->8.5 -->9->9.2-->9.5-->10.7 -->9.8--> 10.2-->11.8 -->11.9-->8.8 ->9.4->9-->8.3 -->8.5-->9.4->9.8-->9-->8.3-->11.6--> 10.8-->10.5-->10->9.7->9.9->8.7->8.4->8 --> transfuse as needed, hgb goal >7 --> no evidence of hemolysis --> peripheral smear has been reviewed --> epogen started 3 x a week ==>> transfuse 06/08, 06/15 # Leukocytosis likely related to suspected COVID-19 virus infection --> completed plaquenil --> trend smear as needed --> wbc trend: 4-->11-->14.5-->21-->26-->21->24--.28-->23-->19-->16.2-->21--> 11.2 -->12.5-->12.3-->12.4-->18.5-->18.5-->17->13-->18.2-->22.2-->25-->17.4-->17 -->14.2-->14-->16-->15.5-->9->17->11.5-->12->12-->18->15->9.8 --> pulm is aware --> on abx cefepime/vanc->zosyn/vanc-->dom/vanc-->dom-->levaquin/cefepime--> vanc/zosyn --> vanc --> pressors as needed --> 06/27 covid 19++ --> pressors as needed in icu --> c diff negative 08/08 --> blood cx++ # Thrombocytopenia/Lymphopenia --> likely related to covid19 --> plt 129k-->186k-->251-->285-->384 -->430-->539-->515-->447-->451-->404-->544 -->244 -->393 # Respiratory failure with covid19+ --> s/p vent/trach --> weaning # Possible Pneumonia --> abx completed --> 07/13 cxr: Improved right lung infiltrates. # Cardiomegaly # Transaminitis with Elevated AST # COPD # Chronic Kidney Disease --> per renal hd --> s/p right femoral cath 07/02 # Hypertension # peg # Dvt ppx lovenox Appreciate consultation and ernesto Rn Subjective HEENT: Denies: no symptoms, eye pain, blurred vision, tearing, double vision, ear pain, ear discharge, nose pain, nose congestion, throat pain, throat swelling, mouth pain, mouth swelling, other Cardiovascular: Denies: no symptoms, chest pain, edema, irregular heart rate, lightheadedness, palpitations, syncope, other Respiratory: Denies: no symptoms, cough, shortness of breath, SOB with excertion, SOB at rest, sputum, wheezing, other Gastrointestinal/Abdominal: Denies: no symptoms, abdomen distended, abdominal pain, black stools, tarry stools, blood in stool, constipated, diarrhea, difficulty swallowing, nausea, poor appetite, poor fluid intake, rectal bleeding , vomiting, other Genitourinary: Denies: no symptoms, burning, discharge, frequency, flank pain, hematuria, incontinence, pain, urgency, other Neurologic/Psychiatric: Denies: no symptoms, anxiety, depressed, emotional problems, headache, numbness, paresthesia, pre-existing deficit, seizure, tingling, tremors, weakness, other Endocrine: Denies: no symptoms, excessive sweating, flushing, intolerance to cold, intolerance to heat, increased hunger, increased thirst, increased urine, unexplained weight gain, unexplained weight loss, other Hematologic/Lymphatic: Denies: no symptoms, anemia, easy bleeding, easy bruising, adenopathy, other Allergies: Coded Allergies: No Known Allergies (Unverified , 05/28/19) Subjective 06/01 nv, extremely agitated, not allowing labs draws, no night sweats, cbc ordered 06/02 confused, restraints, on abx and plaquenil, hgb 7.9, nrb 15 L 06/03 is with nonrebreather, but not compliant, remains confused 06/05 no bleeding, labs noted, no major bleeding, otherwise comfortable 06/06 labs reviewed, no bleeding, meds noted, no night sweats, on levo and nonrebreather 06/07 labs noted, no bleeding, meds reviewed, no bleeding, wbc higher 06/08 to get 2 units prbc, no night sweats, meds reviewed 06/09 is on cefepime and vanc, labs noted, ernesto Rn, no bleeding 06/10 no major changes, labs reviewed, wbc 28k, on abx, cefepime 06/12 remains in icu, labs noted, no night sweats or bleeding 06/13 sluggish pupils, remains agitated, per psych, no bleding, on vent, wbc sitll high 06/14 still confused, remains on vent, with ng, running nepro, on pressors 06/15 icu, febrile, non verbal, hgb 7.1, blood pending, completed plaq 06/16 remains in the icu, nonverbal, plan for hd tomorrow, ernesto rn 06/17 in icu, on pressor, nonverbal, on abx, no bleeding 06/19 no bleeding, nonverbal in icu, hgb is 7.7 06/20 on zosyn, tube feeds, vent, labs noted, in icu, nv 06/21 gettng hd as per renal, in icu, nv, no bleeding, tfs 06/22 icu, cxr with slight improvement, cooling blanket, weaning today 06/23 wewaning, in icu, on vent, abx, and pressors as needed, labs noted 06/24 failed weaning, off abx, completed plaquenil, hgb 8.1 06/26 icu, weaning for this am, afebrile, hgb 8 06/27 in icu, remains comotose, weaning started on peep, no night sweats 06/28 weaning today, off abx, restraints, no distress, h/h stable 06/29 covid 19+, failed weaning, no blood transfusion needed 06/30 icu, on vent, labs reviewed, no distress 07/01 in icu, may need trach, remains on hd per renal, labs noted 07/02 s/p right fem cath, failed wean, no new orders, h/h stable 07/03 is somewhat more responsive, on abx, no bleeding, weaning and HD today 07/04 hd as per renal, weaning off vent, no bleeding today 07/05 obtunded, no bleding overnight, with hd for tomorrow noted, vanc 07/08 no events, remains with trach/vent, ernesto Rn, no bleeding, cbc is noted 07/09 no overnight events, peg for friday pending consent 07/10 off pressors, vent, restraints, labs reviewed 07/11 no acute events is on pressors, intubated, agitated still 07/12 is resting comfortably, no bleeding, emds reviewed and noted 07/13 icu, no events, trach, cxr reviewed, 07/14 is onv ent, tachypneic and tachycardic, labs noted 07/15 remains confused, intubated, ernesto Rn, no bleeding 07/17 icu, cxr improving infiltrates, levo gtt, airborne/contact isolation 07/18 is on broad spectrum abx, is on levaquin and cefepime, wbc 16 agitated 07/19 icu, levo gtt, cxr unchanged, tachy, hd thursday 07/20 sedated, safety restraints, labs reviewed 07/21 hd was done yesterday, lower pressor requirements, wbc is worse, on abx 07/22 icu, meds and labs reviewed, vent, no distress 07/24 on vent, in icu, labs noted, remains agitated, and confused 07/25 remains obtunded, on vent, on pressor, hgb 9, wbc elev 6/16 icu, levo gtt, vent, iv abx, nonverbal 07/27 failed weaning, labs reviewed, repeat covid swab pending 07/28 labs are noted, no bleeding, on vent/trach gtube feeds dw rn 07/29 iuc, restraints, no new changes, vent 07/31 is asleep, comfortable, no events, labs reviewed, restraints+ 08/01 no events, agitated, no bleeding, meds noted, on gtube feeds 08/02 remains on vent, no bleeding, wbc higher 19, hgb 9, on abx 08/03 labs noted, on vent, no bleeding, wbc 17, hgb better 08/04 labs reviewed, no bleeding, does not require prbc, on vent 08/05 more alert, is on trach, vent, no major events, no bleeding, peg+ 08/07 no bleeding no chills, no night sweats, is on vent/trach 08/08 recent covid swab negative, restraints, cxr unchanged 08/09 c diff negative, zosyn, hd today, gtf 08/10 no overnight events, labs reviewed, afebrile 08/11 labs reviewed, meds noted, no fc, no major changes, wbc 12 /3 abx changed to flucon, on abx, wbc 12 / bp on low end, blood cx++, vanc, vent 08/15 no bleeding, no night sweats, on abx, trach/vent 08/16 is able to nod head in response to question, labs noted, on vent/trach 08/17 labs reviewed, hgb 9.8, no bleeding, on abx, meds noted 08/18 labs noted, no bleeding, hgb stable, 9.9, mildly alert 08/19 labs are noted, no bleeding, meds reviewed, line holiday per surg 08/21 labs noted, meds reviewed, no bleeding hgb 8.7 08/22 labs reviewed, no bleeding, meds noted, no night sweats hgb 8.4 08/23 labs ar enoted, no bleeidng, hgb 8, no hemolysis, with rectal tube 08/24 labs reviewed, no bleeding, no night sweats, hgb 8 Objective Objective Current Medications Medications (Trade) Dose Ordered Sig/Anthony Route PRN Reason Start Time Stop Time Status Last Admin Dose Admin Acetaminophen (Tylenol) 650 mg Q4H PRN NG For Pain 08/04/19 21:38 09/03/19 21:37 08/23/19 12:26 Acetaminophen (Tylenol) 650 mg Q4H PRN NG Temp >100.5 08/15/19 13:30 09/08/19 08:29 08/23/19 23:24 Chlorhexidine Gluconate (Michelle-Hex 2%) 1 applic DAILY@2000 TOPIC 08/21/19 20:00 11/19/19 19:59 08/24/19 19:52 Dextrose (Dextrose 50%) 25 ml Q30M PRN IV Hypoglycemia 08/04/19 22:00 09/18/19 19:29 Dextrose (Dextrose 50%) 50 ml Q30M PRN IV Hypoglycemia 08/04/19 22:00 09/18/19 19:29 Diphenoxylate HCl/ Atropine (Lomotil) 2.5 mg BID NG 08/24/19 18:00 09/17/19 17:59 08/24/19 17:52 Enoxaparin Sodium (Lovenox) 30 mg DAILY SUBQ 08/05/19 09:00 08/27/19 08:59 08/24/19 09:03 Epoetin Aftab (Epoetin Aftab(ESRD on dialysis)) 10,000 unit FRI-FRI-FRI SUBQ 08/11/19 21:00 11/09/19 20:59 08/23/19 20:02 Fluconazole (Diflucan) 200 mg DAILY NG 08/13/19 10:24 08/30/19 10:23 08/24/19 09:01 Haloperidol Lactate 5 mg/ Dextrose 56 ml @ 224 mls/hr Q6H PRN IVPB Agitation 08/04/19 21:38 09/18/19 21:37 08/19/19 02:26 Hydralazine HCl (Apresoline) 10 mg Q4H PRN IV Blood pressure over 160 systol 08/04/19 21:39 11/02/19 21:38 Insulin Aspart (NovoLOG) EVERY 6 HOURS SUBQ 08/05/19 00:00 09/19/19 00:00 08/25/19 05:03 Loperamide HCl (Imodium) 2 mg Q6H NG 08/18/19 14:00 09/15/19 13:59 08/25/19 02:10 Midodrine (Pro-Amatine) 10 mg THREE TIMES A DAY NG 08/15/19 18:00 11/13/19 17:59 08/24/19 17:52 Pantoprazole (Protonix) 40 mg DAILY IVP 08/05/19 09:00 08/26/19 08:59 08/24/19 09:01 Vancomycin HCl (Vanco pharmacy to dose) 1 ea DAILY PRN MISC Per rx protocol 08/15/19 08:45 09/14/19 08:44 Vancomycin HCl 1 gm/Dextrose 275 ml @ 183.708 mls/hr ONCE IVPB 08/25/19 17:00 08/25/19 19:00 Last 24 Hour Vital Signs Date Time Temp Pulse Resp B/P (MAP) Pulse Ox O2 Delivery O2 Flow Rate FiO2 08/25/19 07:16 81 31 25 28 08/25/19 04:00 97.8 72 22 136/76 (96) 99 08/25/19 04:00 Mechanical Ventilator Mechanical Ventilator 08/25/19 03:36 80 08/25/19 03:27 79 31 28 08/25/19 00:00 Mechanical Ventilator Mechanical Ventilator 08/24/19 23:52 97.9 80 22 132/77 (95) 100 08/24/19 23:37 71 08/24/19 23:15 78 28 28 08/24/19 20:00 98.1 72 22 130/76 (94) 98 08/24/19 20:00 Mechanical Ventilator Mechanical Ventilator 08/24/19 19:39 81 08/24/19 19:30 75 29 28 08/24/19 16:00 08/24/19 16:00 98.1 73 20 135/78 (97) 100 08/24/19 16:00 74 08/24/19 16:00 Mechanical Ventilator Mechanical Ventilator 08/24/19 15:07 75 46 30 08/24/19 12:00 08/24/19 12:00 85 08/24/19 12:00 Mechanical Ventilator Mechanical Ventilator 08/24/19 11:55 85 37 30 08/24/19 11:50 97.7 85 20 115/62 (79) 98 08/24/19 09:16 100 08/24/19 08:00 98.2 85 20 128/83 (98) 100 08/24/19 08:00 91 08/24/19 08:00 08/24/19 08:00 Mechanical Ventilator Mechanical Ventilator 08/24/19 07:55 83 33 30 08/24/19 04:00 Mechanical Ventilator Mechanical Ventilator 08/24/19 04:00 98.9 82 20 114/69 (84) 100 08/24/19 04:00 30 08/24/19 03:42 89 08/24/19 03:05 90 30 30 08/24/19 00:00 Mechanical Ventilator Mechanical Ventilator 08/24/19 00:00 100.4 92 26 130/78 (95) 99 08/24/19 00:00 30 08/23/19 23:54 99.5 08/23/19 23:30 85 08/23/19 22:53 94 32 30 08/23/19 20:00 98.7 92 22 130/67 (88) 100 08/23/19 20:00 Mechanical Ventilator Mechanical Ventilator 08/23/19 20:00 30 08/23/19 19:42 107 08/23/19 19:19 94 28 30 08/23/19 16:00 79 08/23/19 16:00 30 08/23/19 16:00 Mechanical Ventilator Mechanical Ventilator 08/23/19 16:00 98.4 85 20 101/64 (76) 100 08/23/19 15:15 89 29 30 08/23/19 12:00 30 08/23/19 12:00 98.2 94 20 113/65 (81) 100 08/23/19 12:00 86 08/23/19 12:00 Mechanical Ventilator Mechanical Ventilator 08/23/19 11:05 91 30 30 Intake and Output 08/24/19 08/25/19 19:00 07:00 Intake Total 680 ml 530 ml Balance 680 ml 530 ml Free Water 200 ml 50 ml Tube Feeding 480 ml 480 ml # Bowel Movements 6 5 Labs Test 08/22/19 12:17 08/22/19 17:27 08/22/19 22:59 08/23/19 05:32 POC Whole Blood Glucose 231 MG/DL (74-106) 187 MG/DL (74-106) Test 08/23/19 06:13 08/23/19 12:23 08/23/19 17:18 08/23/19 23:17 White Blood Count 11.9 K/UL (4.8-10.8) Red Blood Count 3.04 M/UL (4.70-6.10) Hemoglobin 8.4 G/DL (14.2-18.0) Hematocrit 27.9 % (42.0-52.0) Mean Corpuscular Volume 92 FL (80-99) Mean Corpuscular Hemoglobin 27.7 PG (27.0-31.0) Mean Corpuscular Hemoglobin Concent 30.2 G/DL (32.0-36.0) Red Cell Distribution Width 17.8 % (11.6-14.8) Platelet Count 397 K/UL (150-450) Mean Platelet Volume 6.9 FL (6.5-10.1) Neutrophils (%) (Auto) 76.1 % (45.0-75.0) Lymphocytes (%) (Auto) 10.4 % (20.0-45.0) Monocytes (%) (Auto) 10.0 % (1.0-10.0) Eosinophils (%) (Auto) 2.6 % (0.0-3.0) Basophils (%) (Auto) 1.0 % (0.0-2.0) Sodium Level 142 MMOL/L (136-145) Potassium Level 3.1 MMOL/L (3.5-5.1) Chloride Level 100 MMOL/L (98-107) Carbon Dioxide Level 27 MMOL/L (21-32) Blood Urea Nitrogen 57 mg/dL (7-18) Creatinine 6.4 MG/DL (0.55-1.30) Estimat Glomerular Filtration Rate 8.8 mL/min (>60) Glucose Level 241 MG/DL (74-106) Calcium Level 8.6 MG/DL (8.5-10.1) Phosphorus Level 3.9 MG/DL (2.5-4.9) Magnesium Level 2.0 MG/DL (1.8-2.4) Total Bilirubin 0.4 MG/DL (0.2-1.0) Aspartate Amino Transf (AST/SGOT) 15 U/L (15-37) Alanine Aminotransferase (ALT/SGPT) 10 U/L (12-78) Alkaline Phosphatase 103 U/L (46-116) Total Protein 7.9 G/DL (6.4-8.2) Albumin 2.5 G/DL (3.4-5.0) Globulin 5.4 g/dL Albumin/Globulin Ratio 0.5 (1.0-2.7) Random Vancomycin Level 15.9 ug/mL Test 08/24/19 04:00 08/24/19 04:53 08/24/19 06:30 08/24/19 09:48 White Blood Count 9.8 K/UL (4.8-10.8) Red Blood Count 2.87 M/UL (4.70-6.10) Hemoglobin 8.0 G/DL (14.2-18.0) Hematocrit 26.3 % (42.0-52.0) Mean Corpuscular Volume 92 FL (80-99) Mean Corpuscular Hemoglobin 27.9 PG (27.0-31.0) Mean Corpuscular Hemoglobin Concent 30.4 G/DL (32.0-36.0) Red Cell Distribution Width 17.9 % (11.6-14.8) Platelet Count 392 K/UL (150-450) Mean Platelet Volume 6.5 FL (6.5-10.1) Neutrophils (%) (Auto) 76.0 % (45.0-75.0) Lymphocytes (%) (Auto) 10.8 % (20.0-45.0) Monocytes (%) (Auto) 9.6 % (1.0-10.0) Eosinophils (%) (Auto) 2.8 % (0.0-3.0) Basophils (%) (Auto) 0.9 % (0.0-2.0) Sodium Level 141 MMOL/L (136-145) Potassium Level 3.1 MMOL/L (3.5-5.1) Chloride Level 100 MMOL/L (98-107) Carbon Dioxide Level 25 MMOL/L (21-32) Anion Gap 16 mmol/L (5-15) Blood Urea Nitrogen 67 mg/dL (7-18) Creatinine 7.3 MG/DL (0.55-1.30) Estimat Glomerular Filtration Rate 7.5 mL/min (>60) Glucose Level 203 MG/DL (74-106) Calcium Level 9.1 MG/DL (8.5-10.1) Phosphorus Level 4.3 MG/DL (2.5-4.9) Magnesium Level 1.9 MG/DL (1.8-2.4) Total Bilirubin 0.4 MG/DL (0.2-1.0) Aspartate Amino Transf (AST/SGOT) 18 U/L (15-37) Alanine Aminotransferase (ALT/SGPT) 8 U/L (12-78) Alkaline Phosphatase 111 U/L (46-116) C-Reactive Protein, Quantitative 35.3 mg/dL (0.00-0.90) Pro-B-Type Natriuretic Peptide 82952 pg/mL (0-125) Total Protein 7.9 G/DL (6.4-8.2) Albumin 2.6 G/DL (3.4-5.0) Globulin 5.3 g/dL Albumin/Globulin Ratio 0.5 (1.0-2.7) POC Whole Blood Glucose 185 MG/DL (74-106) Arterial Blood pH 7.397 (7.350-7.450) Arterial Blood Partial Pressure CO2 37.5 mmHg (35.0-45.0) Arterial Blood Partial Pressure O2 114.0 mmHg (75.0-100.0) Arterial Blood HCO3 22.6 mmol/L (22.0-26.0) Arterial Blood Oxygen Saturation 97.9 % (95-100) Arterial Blood Base Excess -2.0 (-2-2) Kosta Test Positive Test 08/24/19 12:44 08/24/19 17:00 08/24/19 22:21 08/25/19 03:25 POC Whole Blood Glucose 207 MG/DL (74-106) 123 MG/DL (74-106) Random Vancomycin Level 16.7 ug/mL Test 08/25/19 04:43 POC Whole Blood Glucose 157 MG/DL (74-106) Height (Feet): 6 Height (Inches): 1.00 Weight (Pounds): 170 Objective General: nv, confused, sedated Heent: bilateral eye normal inspection, bilateral eye PERRL ++Ng Respiratory: normal breath sounds, no respiratory distress, intubated/vent +++ trach+++ Cardiovascular: regular rate, rhythm, no edema Gastrointestinal: normal inspection, soft, non-distended, peg+ Rectal: deferred Musculoskeletal: normal range of motion, non-tender, R fem cath++ Neurologic: alert, motor strength/tone normal, sensory intact, responsive, speech normal Skin: Decubitus/Ulcer - See RN skin exam. : hinton+ Kleynberg,Greg L. MD Aug 25, 2019 08:12
[2019-08-25] MEDS: Lomotil 2.5mg tab NG SCH ×2 (09:38→18:09)
[2019-08-25] MEDS: Fluconazole 100mg tab NG SCH (09:38)
[2019-08-25] MEDS: Pantoprazole Inj IVP SCH (09:38)
[2019-08-25] MEDS: Midodrine 10mg tab NG SCH ×3 (09:39→18:10)
[2019-08-25] MEDS: Enoxaparin 30mg Inj SUBQ SCH (09:45)
--- NOTE | 2019-08-25 09:49 | General Progress Note ---
Assessment/Plan Status: progressing, unchanged Assessment/Plan: 1. Diabetes. 2. Hypertension. 3. Coronary artery disease. 4. COPD. 5. Psychiatric disorder with schizophrenia. 6. History of hepatitis C. 7. HLP. 8. Chronic kidney disease, now with acute renal failure. 9. Anemia. 10. Hypothyroidism. 11. Spinal stenosis. 12. Constipation. 13. GERD. 14. COVID positive HD per nephrology fu labs s/p PEG GTF TF at 40 cc imodium lomotil neg C.diff off reglan monitor for residuals Subjective ROS Limited/Unobtainable: No Allergies: Coded Allergies: No Known Allergies (Unverified , 05/28/19) Objective Last 24 Hour Vital Signs Date Time Temp Pulse Resp B/P (MAP) Pulse Ox O2 Delivery O2 Flow Rate FiO2 08/25/19 08:00 99.3 80 19 128/73 (91) 98 08/25/19 08:00 Mechanical Ventilator Mechanical Ventilator 08/25/19 07:16 81 31 25 28 08/25/19 04:00 97.8 72 22 136/76 (96) 99 08/25/19 04:00 Mechanical Ventilator Mechanical Ventilator 08/25/19 03:36 80 08/25/19 03:27 79 31 28 08/25/19 00:00 Mechanical Ventilator Mechanical Ventilator 08/24/19 23:52 97.9 80 22 132/77 (95) 100 08/24/19 23:37 71 08/24/19 23:15 78 28 28 08/24/19 20:00 98.1 72 22 130/76 (94) 98 08/24/19 20:00 Mechanical Ventilator Mechanical Ventilator 08/24/19 19:39 81 08/24/19 19:30 75 29 28 08/24/19 16:00 08/24/19 16:00 98.1 73 20 135/78 (97) 100 08/24/19 16:00 74 08/24/19 16:00 Mechanical Ventilator Mechanical Ventilator 08/24/19 15:07 75 46 30 08/24/19 12:00 08/24/19 12:00 85 08/24/19 12:00 Mechanical Ventilator Mechanical Ventilator 08/24/19 11:55 85 37 30 08/24/19 11:50 97.7 85 20 115/62 (79) 98 Intake and Output 08/24/19 08/25/19 19:00 07:00 Intake Total 680 ml 530 ml Balance 680 ml 530 ml Free Water 200 ml 50 ml Tube Feeding 480 ml 480 ml # Bowel Movements 6 5 Laboratory Tests 08/24/19 12:44: POC Whole Blood Glucose 207H 08/24/19 17:00: POC Whole Blood Glucose 123H 08/24/19 22:21: POC Whole Blood Glucose [Pending] 08/25/19 03:25: Random Vancomycin Level 16.7 08/25/19 04:43: POC Whole Blood Glucose 157H Height (Feet): 6 Height (Inches): 1.00 Weight (Pounds): 170 General Appearance: no apparent distress EENT: normal ENT inspection Neck: supple Respiratory/Chest: decreased breath sounds Abdomen: hypoactive bowel sounds Extremities: non-tender Marito Ramires MD Aug 25, 2019 09:49
[2019-08-25 12:00] VITALS: BP 126/78
[2019-08-25] MEDS ORDERED: Vancomycin 500mg/D5W 110ml IVPB SCH ×2 (12:00)
--- NOTE | 2019-08-25 13:16 | Nephrology Progress Note ---
Assessment/Plan Problem List: (1) CASSANDRA (acute kidney injury) (2) Anemia in chronic kidney disease (CKD) (3) HTN (hypertension) (4) COVID-19 Assessment Acute renal failure most likely superimposed on chronic kidney disease Suspected COVID-19 virus infection Possible Pneumonia, lymphopenia, elevated AST Cardiomegaly, possible CHF COPD Hypertension Anemia, most likely related to chronic kidney disease Plan August 24: No chemistry panel today. Due for dialysis today. Blood pressure stable. August 23: Labs reviewed. Potassium supplement given. Blood pressure is stable. Due for dialysis tomorrow. No ultrafiltration will be done. August 22: Patient was dialyzed yesterday. Pressure low today. 500 cc albumin ordered. Continue to monitor renal parameters. Continue to be on Midodrin. August 21: A temporary catheter for dialysis was put in yesterday, and the patient is due for dialysis today. Continue per consultants. August 20: Patient due for insertion of a temporary dialysis catheter. I ordered dialysis for tomorrow August 21. Continue per consultants. Discussed with Donna " August 19: Permacath discontinued. Due for temporary non-tunneled dialysis access. White blood cells are up to over 14,000. Will dialyze as needed. August 18: Discussed with ID and general surgery. Will remove the permacath which is thought to be infected by IR today. Will monitor renal parameters. Will obtain surveillance cultures tomorrow. Will attempt to put a temporary dialysis access in 48 to 72 hours for dialysis purposes. August 17: Last dialysis August 15, no blood work done today yet. Will reassess if dialysis should be continued. Continue per current management. We will make arrangement to DC permacath and reinsert a new one via general surgery and or interventional radiology August 16: Albumin for low BP. Continue to monitor renal parameters. August 15: Due for dialysis today. Remains borderline low. No ultrafiltration during dialysis. Discussed with SHANIQUE Macdonald. August 14: No labs done today. Patient hypotensive. Normal saline and albumin bolus given. Midodrin started. Will check lab tomorrow. August 13: Lab reviewed. Last dialysis yesterday. Next dialysis August 15. Potassium and phosphorus supplement given. Continue per consultants. August 3: No can panel done today. Due for dialysis today. Continue per consultants. August 11: Patient labs reviewed. Will order dialysis tomorrow. Continue per consultants. August 10: Patient was dialyzed yesterday. Today's labs checked. Stable from renal standpoint to view August 09: Patient scheduled for hemodialysis today. Will check labs tomorrow. August 08: Lab reviewed. Hemodialysis scheduled for tomorrow. August 07: Dialyzed yesterday. No labs drawn today. Will check labs tomorrow. Continue per consultants. August 06: Patient on dialysis now. Discussed with dialysis nurse. Slight catheter malfunction persist. August 05: Labs reviewed. Dialysis scheduled for tomorrow. Continue per consultants. August 04: No labs done today. Dialyzed yesterday. Check labs tomorrow. Continue per consultants. August 03: Lab reviewed. Due for dialysis today. White blood cell 17,500. August 02: Lab reviewed. Low phosphorus replaced. Hemodialysis ordered for tomorrow. White blood cells over 18,000. August 01: Labs reviewed. Potassium replacement ordered. Remains full code on ventilator via trach. Continue per consultants. July 31: Dialyzed yesterday. No can panel today. Remains full code. Remains on ventilator. Being fed through PEG. Continue per consultants. July 30: Patient due for dialysis today. Labs are reviewed. Remains full code. Status post trach to ventilator. Status post PEG. July 29: Patient dialyzed yesterday. Due for dialysis tomorrow. Remains in ICU. Full code. Status post trach tube to ventilator. Status post PEG. July 28: Due for dialysis today. Labs reviewed. Full code. Patient trached and vented. July 27: Last COVID test negative. COVID test will be repeated tomorrow. Will order dialysis tomorrow. Remains full code. Medication list and labs reviewed. July 26: No labs done today. Dialysis done yesterday. Will check lab tomorrow. Dialysis as needed. July 25: Lab reviewed. Dialysis today. Discussed with RN. July 24: Lab reviewed. Do dialysis tomorrow. Discussed with RN. July 23: Lab reviewed. Dialyzed yesterday. Discussed with RN. Remains full code. Next dialysis July 25. Will check labs tomorrow. July 22: Labs reviewed. Due for dialysis today. Discussed with RN. Watch borderline low blood pressure. Discussed with dialysis nurse. July 21: Today's lab reviewed. Will arrange for dialysis tomorrow. Discussed with RN. Aim to keep the blood pressure above 100 systolic. Continue per consultants. July 20: Patient was dialyzed yesterday. Could not ultrafiltrate much due to low blood pressure. Discussed with SHANIQUE Dick today. No labs drawn today. Continue per consultants. July 19: Due for dialysis today. Discussed with SHANIQUE Dick. Continue per consultants. July 18: Dialyzed July 16. Will order dialysis tomorrow July 19. Continues to be on ventilator through trach. No labs done today. Continue per consultants. July 17: Dialyzed yesterday. Stable from renal standpoint of view. Remains full code. Status post trach on vent. Status post PEG. Continue per consultants. July 16: Dialysis today. Will resume Midodrin to prevent hypotension. Patient remains full code. July 15: Dialyzed yesterday, due for dialysis tomorrow. Labs and medication list reviewed. Continue per consultants. Patient remains full code. COVID-19 detected again. July 14: Patient currently on dialysis. This is continuation of dialysis from yesterday as yesterday's dialysis was cut short due to catheter malfunction. Labs and medication reviewed. Continue per consultants. July 13: Patient currently on hemodialysis. The dialysis catheter which is a intrajugular Kamlesh has poor flow. Will try TPA. Continue per consultants. July 12: Due for PEG today. Due for dialysis tomorrow. Continue per consultants. Discussed with RN. July 11: Plan for dialysis today. Discussed with RN. Data reviewed. July 10: Plan for dialysis tomorrow July 11. Waiting for consent to proceed with PEG. Continue per consultants. Medication reviewed. Labs reviewed. Discussed with RN. July 09: Dialyzed yesterday. Labs reviewed. Medication reviewed. Next hemodialysis July 11. July 08: Patient has tracheostomy now. Connected to ventilator. Due for dialysis today. Continue per consultants. Discussed with SHANIQUE Romero. July 07: Patient is due for tracheostomy today. Patient was last dialyzed July 05. Will order dialysis for tomorrow. July 06: Patient is intubated on ventilator however the plan is to extubate today. Patient was dialysis yesterday July 05. The dialysis time was cut short due to patient's respiratory distress. Only 1 L was removed during dialysis yesterday. Today's lab reviewed. Continue per consultants. Will arrange for dialysis as needed. July 05: Patient due for dialysis today. Remains intubated. Will schedule permacath placement in a.m. blood cultures on July 04 are negative. July 04: Patient was dialyzed yesterday. Due for dialysis tomorrow. Continues to be intubated. After tomorrow's dialysis will order a permacath. July 03: Dialysis is about to be started now Continues to be intubated Will plan to remove the femoral dialysis catheter and exchanged for a new temporary catheter per ID recommendation We will check surveillance blood culture tomorrow July 02: Patient was dialyzed yesterday and due for dialysis tomorrow Stable from renal standpoint W on dialysis Continue per consultants, weaning....... etc. July 01: Dialysis today Other status unchanged June 30: Due for dialysis tomorrow Remains intubated on ventilator Labs and medication reviewed Discussed with RN Stable from renal standpoint of view June 29: Dialyzed yesterday Due for dialysis tomorrow Stable from renal standpoint to view Keeps failing weaning process June 28: Patient due for dialysis today Stable from renal standpoint to view Continue per consultants June 27: Labs reviewed Due due for dialysis June 28 Discussed with SHANIQUE Dick Continue per consultants Remains intubated on ventilator June 26 Labs reviewed Dialyzed yesterday Started on weaning today Continue to monitor renal parameters June 16: On dialysis now Potassium supplement implemented Continue per consultants Next dialysis June 27June 15: Status unchanged Dialyzed yesterday will dialyze again tomorrow Potassium supplements given Discussed with RN June 23: Due dialysis today Status: Remains intubated on ventilator June 22: Status unchanged Dialyzed yesterday and duefordialysistomorrow Serum sodium stable today June 21 Remains intubated on ventilator Due dialysis today Emphasized high sodium bath for dialysis June 20: Remains intubated on ventilator Dialyzed June 19 next dialysis June 21 Serum sodium 128, will give 250 cc 3% saline Remains full code Discussed with RN Iron panel ordered June 19: Discussed with RN. Patient due for dialysis today. Continue pulmonary support. Remains full code. June 18: Patient dialyzed yesterday June 17 Serum sodium improved but still low Arrange for dialysis tomorrow June 19 Continue per consultants June 17: Due for dialysis today Today's lab reviewed, low serum sodium noted, Emphasized on high sodium bath to dialysis nurse Discussed with SHANIQUE Yuen June 16: Dialyzed yesterday Remains intubated Labs reviewed, serum sodium 131 Plan to dialyze tomorrow June 17 with high sodium bath Discussed with SHANIQUE Yuen May 6: Due for dialysis today Labs reviewed Discussed with RN Transfuse 1 unit of packed RBCs today for low hemoglobin of 7.1 June 5: Blood pressure well maintained Receive dialysis June 13 next hemodialysis June 15June 4: Discussed with RN in ICU Patient did not receive proper dialysis yesterday due to dialysis catheter malfunction Catheter to be adjusted today and dialyzed to be resumed today Continue per consultants Positive for COVID 28 June 2: Patient now intubated on mechanical ventilation Discussed with RN Alpa, today June 12 Patient received dialysis yesterday June 10 next hemodialysis June 12 Blood pressure better maintained Today's labs reviewed Continue per consultants Previously patient received dialysis last evening June 05, next dialysis June 07 which was incomplete due to patient's hypotension Will start on midodrine for blood pressure support. Meanwhile continue other pressors as needed Previously Patient is doing poorly, septic, white blood cells are rising, Hypotension somewhat improved We will keep n.p.o. , NG tube for medications, and change medication to IV as needed Patient remains full code Monitor vancomycin level Previously: Patient pulled out his femoral catheter yesterday June 03 which was reinserted by Dr. Mast Patient scheduled for dialysis again June 04, which again was not done due to dialysis nurse citing catheter malfunction Meanwhile continue management per ID, pulmonary , and psych. Meanwhile white blood cell count is rising. Patient blood pressure borderline low. Will check ABG Previously May 31 : I believe patient need dialysis treatment He however needs to competency assessment if can make decisions or not I will communicate with Dr. Mulligan Previously: Per pulmonary and ID advice Adjust blood pressure medication Renal diet Anemia work-up 2D echocardiogram refused Kidney ultrasound refused Jules catheter Urine studies Per orders Subjective ROS Limited/Unobtainable: Yes Objective Objective Last 24 Hour Vital Signs Date Time Temp Pulse Resp B/P (MAP) Pulse Ox O2 Delivery O2 Flow Rate FiO2 08/25/19 12:00 Mechanical Ventilator Mechanical Ventilator 08/25/19 12:00 108 08/25/19 12:00 99.4 106 17 126/78 (94) 95 08/25/19 10:50 100 28 25 28 08/25/19 10:47 100 08/25/19 08:00 99.3 80 19 128/73 (91) 98 08/25/19 08:00 84 08/25/19 08:00 Mechanical Ventilator Mechanical Ventilator 08/25/19 07:16 81 31 25 28 08/25/19 04:00 97.8 72 22 136/76 (96) 99 08/25/19 04:00 Mechanical Ventilator Mechanical Ventilator 08/25/19 03:36 80 08/25/19 03:27 79 31 28 08/25/19 00:00 Mechanical Ventilator Mechanical Ventilator 08/24/19 23:52 97.9 80 22 132/77 (95) 100 08/24/19 23:37 71 08/24/19 23:15 78 28 28 08/24/19 20:00 98.1 72 22 130/76 (94) 98 08/24/19 20:00 Mechanical Ventilator Mechanical Ventilator 08/24/19 19:39 81 08/24/19 19:30 75 29 28 08/24/19 16:00 08/24/19 16:00 98.1 73 20 135/78 (97) 100 08/24/19 16:00 74 08/24/19 16:00 Mechanical Ventilator Mechanical Ventilator 08/24/19 15:07 75 46 30 Intake and Output 08/24/19 08/25/19 19:00 07:00 Intake Total 680 ml 530 ml Balance 680 ml 530 ml Free Water 200 ml 50 ml Tube Feeding 480 ml 480 ml # Bowel Movements 6 5 No can panel done today Laboratory Tests 08/24/19 17:00: POC Whole Blood Glucose 123H 08/24/19 22:21: POC Whole Blood Glucose [Pending] 08/25/19 03:25: Random Vancomycin Level 16.7 08/25/19 04:43: POC Whole Blood Glucose 157H Height (Feet): 6 Height (Inches): 1.00 Weight (Pounds): 170 General Appearance: no apparent distress EENT: other - Trached and vent Neck: other - Trach site clean Cardiovascular: tachycardia Respiratory/Chest: decreased breath sounds Abdomen: distended Objective No change Mic Cole MD Aug 25, 2019 13:16
--- NOTE | 2019-08-25 14:55 | Cardiac Electrophysiology PN ---
Assessment/Plan Assessment/Plan 1. NSTEMI type 2. Low level and flat due to renal failure. On Aspirin. EF 60%. 2. S/P Septic shock. On Abx. Better after NS and Albumin On Midodrine 10 tid. 3. ESRD, on HD per Dr. Cole. S/P Left SC Kamlesh catheter placement by Dr Mast 4. VDRF due to COVID pneumonia. S/P Tracheostomy 07/08/19. 5. Atrial fib with RVR. Off Lopressor for Low BP, in SR 6. Dysphagia, S/P PEG 07/13/19 7. COPD. 8. Anemia. 9. Diarrhea DW RN Subjective Subjective In SDU on the vent via trach. Off pressors. Fio2 28%. Off isolation as Covid negative on 08/07/19. S/P subclavian Kamlesh catheter by Dr. Mast Objective Last 24 Hour Vital Signs Date Time Temp Pulse Resp B/P (MAP) Pulse Ox O2 Delivery O2 Flow Rate FiO2 08/25/19 12:00 Mechanical Ventilator Mechanical Ventilator 08/25/19 12:00 108 08/25/19 12:00 99.4 106 17 126/78 (94) 95 08/25/19 10:50 100 28 25 28 08/25/19 10:47 100 08/25/19 08:00 99.3 80 19 128/73 (91) 98 08/25/19 08:00 84 08/25/19 08:00 Mechanical Ventilator Mechanical Ventilator 08/25/19 07:16 81 31 25 28 08/25/19 04:00 97.8 72 22 136/76 (96) 99 08/25/19 04:00 Mechanical Ventilator Mechanical Ventilator 08/25/19 03:36 80 08/25/19 03:27 79 31 28 08/25/19 00:00 Mechanical Ventilator Mechanical Ventilator 08/24/19 23:52 97.9 80 22 132/77 (95) 100 08/24/19 23:37 71 08/24/19 23:15 78 28 28 08/24/19 20:00 98.1 72 22 130/76 (94) 98 08/24/19 20:00 Mechanical Ventilator Mechanical Ventilator 08/24/19 19:39 81 08/24/19 19:30 75 29 28 08/24/19 16:00 08/24/19 16:00 98.1 73 20 135/78 (97) 100 08/24/19 16:00 74 08/24/19 16:00 Mechanical Ventilator Mechanical Ventilator 08/24/19 15:07 75 46 30 Intake and Output 08/24/19 08/25/19 19:00 07:00 Intake Total 680 ml 530 ml Balance 680 ml 530 ml Free Water 200 ml 50 ml Tube Feeding 480 ml 480 ml # Bowel Movements 6 5 Laboratory Tests Test 08/24/19 17:00 08/24/19 22:21 08/25/19 03:25 08/25/19 04:43 POC Whole Blood Glucose 123 MG/DL (74-106) H Pending 157 MG/DL (74-106) H Random Vancomycin Level 16.7 ug/mL Test 08/25/19 13:15 POC Whole Blood Glucose Pending Microbiology Date/Time Source Procedure Growth Status 08/23/19 11:20 Blood Blood Culture - Preliminary NO GROWTH AFTER 24 HOURS Resulted 08/23/19 11:10 Blood Blood Culture - Preliminary NO GROWTH AFTER 24 HOURS Resulted Objective HEAD AND NECK: No JVD. Tracheostomy in place. Left SC Kamlesh now in place. LUNGS: Decreased breath sounds. CARDIOVASCULAR: Regular S1 and S2. Tachycardic. ABDOMEN: Soft. PEG in place EXTREMITIES: No pitting edema. Gio Baker MD Aug 25, 2019 14:55
--- NOTE | 2019-08-25 15:29 | Infectious Diseases Prog Note ---
Assessment/Plan Assessment/Plan IMPRESSION: 1. COVID19 pneumonia Positive: 05/27, 05/31 , 06/05, 06/09 ,5, 06/19, 06/23, 06/27, 07/03, 07/15, 07/29 Negative: 07/26, 08/04, 08/05 2. MRSA carrier. 3. Chronic kidney disease , end-stage renal disease. 4. COPD. 5. Hypertension. 6. Anemia. 7. Hypothyroidism. 8. Hyperlipidemia. 9. Major depression. 10. Leukocytosis resolved 11. Hypotension 12. Hepatitis C 13. Hyperuricemia 14. Diarrhea, C difficile negative 15. septic shock 16.Sepsis blood cultures 08/08 & 08/12 : yeast blood culture: Staph Coagulase negative 17. Pneumonia with Staph aureus ( MRSA) 18. Candidal sepsis 19. Diarrhea, C. difficile negative RECOMMENDATIONS: continue Fluconazole & Vancomycin Will f/u blood culture Unchanged CXR Case was D/W RN Subjective ROS Limited/Unobtainable: Yes Constitutional: Denies: fever Allergies: Coded Allergies: No Known Allergies (Unverified , 05/28/19) Objective Last 24 Hour Vital Signs Date Time Temp Pulse Resp B/P (MAP) Pulse Ox O2 Delivery O2 Flow Rate FiO2 08/25/19 15:13 100 40 25 28 08/25/19 12:00 Mechanical Ventilator Mechanical Ventilator 08/25/19 12:00 108 08/25/19 12:00 99.4 106 17 126/78 (94) 95 08/25/19 10:50 100 28 25 28 08/25/19 10:47 100 08/25/19 08:00 99.3 80 19 128/73 (91) 98 08/25/19 08:00 84 08/25/19 08:00 Mechanical Ventilator Mechanical Ventilator 08/25/19 07:16 81 31 25 28 08/25/19 04:00 97.8 72 22 136/76 (96) 99 08/25/19 04:00 Mechanical Ventilator Mechanical Ventilator 08/25/19 03:36 80 08/25/19 03:27 79 31 28 08/25/19 00:00 Mechanical Ventilator Mechanical Ventilator 08/24/19 23:52 97.9 80 22 132/77 (95) 100 08/24/19 23:37 71 08/24/19 23:15 78 28 28 08/24/19 20:00 98.1 72 22 130/76 (94) 98 08/24/19 20:00 Mechanical Ventilator Mechanical Ventilator 08/24/19 19:39 81 08/24/19 19:30 75 29 28 08/24/19 16:00 08/24/19 16:00 98.1 73 20 135/78 (97) 100 08/24/19 16:00 74 08/24/19 16:00 Mechanical Ventilator Mechanical Ventilator Height (Feet): 6 Height (Inches): 1.00 Weight (Pounds): 170 HEENT: status post trach Respiratory/Chest: lungs clear, other - on ventilator Cardiovascular: tachycardia, other - HD line Abdomen: soft, non tender, other - GT feeding Extremities: no edema Neurologic/Psychiatric: aphasia Microbiology Date/Time Source Procedure Growth Status 08/23/19 11:20 Blood Blood Culture - Preliminary NO GROWTH AFTER 24 HOURS Resulted 08/23/19 11:10 Blood Blood Culture - Preliminary NO GROWTH AFTER 24 HOURS Resulted Laboratory Tests Test 08/24/19 17:00 08/24/19 22:21 08/25/19 03:25 08/25/19 04:43 POC Whole Blood Glucose 123 MG/DL (74-106) H Pending 157 MG/DL (74-106) H Random Vancomycin Level 16.7 ug/mL Test 08/25/19 13:15 POC Whole Blood Glucose Pending Current Medications Medications (Trade) Dose Ordered Sig/Anthony Route PRN Reason Start Time Stop Time Status Last Admin Dose Admin Acetaminophen (Tylenol) 650 mg Q4H PRN NG For Pain 08/04/19 21:38 09/03/19 21:37 08/23/19 12:26 Acetaminophen (Tylenol) 650 mg Q4H PRN NG Temp >100.5 08/15/19 13:30 09/08/19 08:29 08/23/19 23:24 Chlorhexidine Gluconate (Michelle-Hex 2%) 1 applic DAILY@1999 TOPIC 08/21/19 20:00 11/19/19 19:59 08/24/19 19:52 Dextrose (Dextrose 50%) 25 ml Q30M PRN IV Hypoglycemia 08/04/19 22:00 09/18/19 19:29 Dextrose (Dextrose 50%) 50 ml Q30M PRN IV Hypoglycemia 08/04/19 22:00 09/18/19 19:29 Diphenoxylate HCl/ Atropine (Lomotil) 2.5 mg BID NG 08/24/19 18:00 09/17/19 17:59 08/25/19 09:38 Enoxaparin Sodium (Lovenox) 30 mg DAILY SUBQ 08/05/19 09:00 08/27/19 08:59 08/25/19 09:45 Epoetin Aftab (Epoetin Aftab(ESRD on dialysis)) 10,000 unit SUBQ 08/11/19 21:00 11/09/19 20:59 08/23/19 20:02 Fluconazole (Diflucan) 200 mg DAILY NG 08/13/19 10:24 08/30/19 10:23 08/25/19 09:38 Haloperidol Lactate 5 mg/ Dextrose 56 ml @ 224 mls/hr Q6H PRN IVPB Agitation 08/04/19 21:38 09/18/19 21:37 08/19/19 02:26 Hydralazine HCl (Apresoline) 10 mg Q4H PRN IV Blood pressure over 160 systol 08/04/19 21:39 11/02/19 21:38 Insulin Aspart (NovoLOG) EVERY 6 HOURS SUBQ 08/05/19 00:00 09/19/19 00:00 08/25/19 13:20 Loperamide HCl (Imodium) 2 mg Q6H NG 08/18/19 14:00 09/15/19 13:59 08/25/19 13:24 Midodrine (Pro-Amatine) 10 mg THREE TIMES A DAY NG 08/15/19 18:00 11/13/19 17:59 08/25/19 13:24 Pantoprazole (Protonix) 40 mg DAILY IVP 08/05/19 09:00 08/26/19 08:59 08/25/19 09:38 Vancomycin HCl (Vanco pharmacy to dose) 1 ea DAILY PRN MISC Per rx protocol 08/15/19 08:45 09/14/19 08:44 Vancomycin HCl 1 gm/Dextrose 275 ml @ 183.708 mls/hr ONCE IVPB 08/25/19 17:00 08/25/19 19:00 Ted Leyva MD Aug 25, 2019 15:29
[2019-08-25 16:00] VITALS: BP 134/71
[2019-08-25] MEDS ORDERED: Vancomycin 1gm in D5W 275ml IVPB SCH (17:00)
--- NOTE | 2019-08-25 17:07 | Surgery Progress Note ---
Surgery Progress Note Subjective Procedure Performed Insertion of left subclavian temporary hemodialysis catheter Tracheostomy exchange 8 German Shiley Symptoms: improved, tolerating diet, BM Objective Last 24 Hour Vital Signs Date Time Temp Pulse Resp B/P (MAP) Pulse Ox O2 Delivery O2 Flow Rate FiO2 08/25/19 15:13 100 40 25 28 08/25/19 12:00 Mechanical Ventilator Mechanical Ventilator 08/25/19 12:00 108 08/25/19 12:00 99.4 106 17 126/78 (94) 95 08/25/19 10:50 100 28 25 28 08/25/19 10:47 100 08/25/19 08:00 99.3 80 19 128/73 (91) 98 08/25/19 08:00 84 08/25/19 08:00 Mechanical Ventilator Mechanical Ventilator 08/25/19 07:16 81 31 25 28 08/25/19 04:00 97.8 72 22 136/76 (96) 99 08/25/19 04:00 Mechanical Ventilator Mechanical Ventilator 08/25/19 03:36 80 08/25/19 03:27 79 31 28 08/25/19 00:00 Mechanical Ventilator Mechanical Ventilator 08/24/19 23:52 97.9 80 22 132/77 (95) 100 08/24/19 23:37 71 08/24/19 23:15 78 28 28 08/24/19 20:00 98.1 72 22 130/76 (94) 98 08/24/19 20:00 Mechanical Ventilator Mechanical Ventilator 08/24/19 19:39 81 08/24/19 19:30 75 29 28 I&O Intake and Output 08/24/19 08/25/19 19:00 07:00 Intake Total 680 ml 530 ml Balance 680 ml 530 ml Free Water 200 ml 50 ml Tube Feeding 480 ml 480 ml # Bowel Movements 6 5 Dressing: dry Wound: clean Cardiovascular: RSR Respiratory: clear, decreased breath sounds Abdomen: soft, non-tender, present bowel sounds Extremities: no cyanosis Laboratory Tests Test 08/24/19 22:21 08/25/19 03:25 08/25/19 04:43 08/25/19 13:15 POC Whole Blood Glucose Pending 157 MG/DL (74-106) H Pending Random Vancomycin Level 16.7 ug/mL Plan Problems: (1) Suspected COVID-19 virus infection (2) HTN (hypertension) (3) CASSANDRA (acute kidney injury) Assessment & Plan: Needs urgent HD needs access patient okay and consented see note will follow with recs new line placed discussed with team and nephrology HD line functional when checked has TPA now please use appropriately Cathflo used again this flow during dialysis on 430 was low. Will monitor may need line change 5/ plan for HD as per renal may need to take fluid off with HD edema anasarca dressings saturated and changed will monitor cont with HD IJ left line placed for HD given extent of prior line in place. leukocytosis blood cx negative may need to change out line new line okay HD going well Continue HD as tolerated May need pressors for HD as needed (4) Anemia in chronic kidney disease (CKD) (5) Anemia (6) Renal failure (7) Suspected COVID-19 virus infection Assessment & Plan: Pt deconditioned and despite all skin preventions Pt noted to have developed several pressure injuries. . Stable dry eschar noted to clefts of R and L ears. No erythema noted . DTPI noted to L trochanter. Base of injury is maroon in colour with marginal erythema along borders. Partially opened DTPI Sacrum, R and L Buttocks. Base of wound is maroon with two small open wounds L sacrum and L buttocks. Pt has an APM/MOMO Mattress overlay and is being positioned with pillows as per tolerance and within protocols. worsening despite medical efforts will cont to provide therapy Tx.Plan: Apply Cavilon Skin Barrier to both ears Daily and prn. Apply Moisture Barrier Paste to Sacrum,R and L Buttocks. Cover with Optifoam drsgs. Change every 3 days and PRN. Apply Cavilon Skin Barrier to R and L trochanter. Cover each site with Optifoam drsgs.Change every 7 days and PRN. Apply Cavilon Skin Barrier to both heels. Cover each heel with Optifoam drsg. Change every 7 days and prn. Off-load heels with pillow. Reposition at least every 2hours or as tolerated. APM/MOMO Mattress overlay. (8) COVID-19 Assessment & Plan: COVID + c diff negative febrile leukocytosis renal insufficiency see above cont resp care Rx as per ID worsening on vent support now cxr noted on pressors prognosis guarded repeat covid ++ weaning vent and pressors off slowly showing improvement slowly recovering will need trach as unable to wean vent safely called and spoke with country conservatorship. consent obtained s/p trach pending peg worsening on levo max (9) Sepsis Assessment & Plan: worsening leukocytosis febrile on pressors discussed with ID. lines evaluated and clean. he is septic on pressors and needs central access in difficult venous access patient blood cultures negative will monitor temp HD cath out now with permacath left tlc still subclavian needed line c/d/i line negative c diff negative wbc resolved improved d/c planning febrile leukocytosis hold d/c infectious work up in place yeast in cultures fevers persistent fungemia abx as per ID hold on line removal cont abx repeat cx Plan for line removal plan for line holiday will replace dialysis catheter PRN Hemodialysis line change August 20 Tracheostomy exchange 8 German Shiley due to balloon insufficiency August 20 Yaniv Mast Aug 25, 2019 17:07
[2019-08-25 20:00] VITALS: BP 137/72
[2019-08-25] MEDS: Dyna-Hex 2% Top Sol 2oz TOPIC SCH (20:11)
[2019-08-25] MEDS: Epoetin Alfa-EPBX(ESRD on dialysis)10,000 unit/ml vial SUBQ SCH (20:12)
--- NOTE | 2019-08-25 23:14 | Pulmonolgy Critical Care Note ---
Critical Care - Asmt/Plan Assessment/Plan: Pulmonary Progress Note HPI: Patient is a 68 year old man, [facility], admitted c/o shortness of breath, cough, noted to have Covid 19 Pneumonia, Respiratory Failure Remains on Ventilator, CXR stable, mild interstitial prominence, 08/22 Anemia CKD on HD, will need eventual placement, second consecutive repeat COVID19 test negative Preserved EF FIO2 30%, P5, adequate O2 sats, remains on ACVC, tolerating CPAP PS 8 day, adequate ABG, s/p Tracheostomy previously, sp PEG, sp HD line insertion ID following MRSA sputum Sp Trach change 08/20 Reviewed earlier Past Medical History: COPD, CKD, Hypertension, Anemia Allergies: No Known Allergies Physical Exam Vital Signs Noted Stable on ventilator Chronically ill appearing HEENT: Trach CDI Chest: CTAB Hreart: HS1, HS2, RRR Abdomen: SNTND, Gtube Extremities: Wasted, no edema GENERAL OFFICE ASSISTANT:No focal signs Impression: COVID-19 virus infection - now Covid negative Pneumonia Respiratory failure on ventilator, wean as tolerated CKD - on HD Previous NSTEMI Hypotension resolved Cardiomegaly Fungemia MRSA sputum COPD Chronic Kidney Disease - HD H/o Hypertension Anemia Plan: trach care as is Antibiotics per ID HD per renal monitor vitals AC - wean as tolerated, PS 8 AM anxiolytics if needed 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 PRN Monitor lab data nutrition feeds Hemodialysis per Renal impression, plan, and exam edited and reviewed in detail care discussed with RN Laboratory Tests Noted: CXR: No acute changes Subjective ROS Limited/Unobtainable: Yes Allergies: Coded Allergies: No Known Allergies (Unverified , 05/28/19) Critical Care - Objective Last 24 Hour Vital Signs Date Time Temp Pulse Resp B/P (MAP) Pulse Ox O2 Delivery O2 Flow Rate FiO2 08/25/19 23:10 68 34 28 08/25/19 21:20 71 31 28 08/25/19 20:00 99.5 70 32 137/72 (93) 98 08/25/19 20:00 77 08/25/19 20:00 Mechanical Ventilator Mechanical Ventilator 08/25/19 20:00 30 08/25/19 18:56 76 33 28 08/25/19 16:00 Mechanical Ventilator Mechanical Ventilator 08/25/19 16:00 97.9 89 15 134/71 (92) 95 08/25/19 16:00 82 08/25/19 15:13 100 40 25 28 08/25/19 12:00 Mechanical Ventilator Mechanical Ventilator 08/25/19 12:00 108 08/25/19 12:00 99.4 106 17 126/78 (94) 95 08/25/19 10:50 100 28 25 28 08/25/19 10:47 100 08/25/19 08:00 99.3 80 19 128/73 (91) 98 08/25/19 08:00 84 08/25/19 08:00 Mechanical Ventilator Mechanical Ventilator 08/25/19 07:16 81 31 25 28 08/25/19 04:00 97.8 72 22 136/76 (96) 99 08/25/19 04:00 Mechanical Ventilator Mechanical Ventilator 08/25/19 03:36 80 08/25/19 03:27 79 31 28 08/25/19 00:00 Mechanical Ventilator Mechanical Ventilator 08/24/19 23:52 97.9 80 22 132/77 (95) 100 08/24/19 23:37 71 08/24/19 23:15 78 28 28 Micro: Microbiology Date/Time Source Procedure Growth Status 08/23/19 11:20 Blood Blood Culture - Preliminary NO GROWTH AFTER 24 HOURS Resulted 08/23/19 11:10 Blood Blood Culture - Preliminary NO GROWTH AFTER 24 HOURS Resulted Accucheck: 132 Critical Care - Subjective ROS Limited/Unobtainable: Yes Condition: stable IV Access: central FI02: 28 Vent Support Breath Rate: 26 Vent Support Mode: AC Vent Tidal Volume: 500 Sputum Amount: Small PEEP: 5.0 PIP: 25 Tube Feeding Amount: 40 I&O: Intake and Output 08/24/19 08/25/19 19:00 07:00 Intake Total 680 ml 530 ml Balance 680 ml 530 ml Free Water 200 ml 50 ml Tube Feeding 480 ml 480 ml # Bowel Movements 6 5 ET-Tube: 7.5 ET Position: 24 Arturo Mckeon MD Aug 25, 2019 23:14
--- NOTE | 2019-08-25 23:15 | General Progress Note ---
Assessment/Plan Problem List: (1) HTN (hypertension) ICD Codes: I10 - Essential (primary) hypertension SNOMED: 79980976 (2) CASSANDRA (acute kidney injury) ICD Codes: N17.9 - Acute kidney failure, unspecified SNOMED: 0255508, 72995155 (3) Anemia in chronic kidney disease (CKD) ICD Codes: N18.9 - Chronic kidney disease, unspecified; D63.1 - Anemia in chronic kidney disease SNOMED: 118764061 (4) Renal failure ICD Codes: N19 - Unspecified kidney failure SNOMED: 43661497 (5) Respiratory failure requiring intubation ICD Codes: J96.90 - Respiratory failure, unspecified, unspecified whether with hypoxia or hypercapnia; A41.89 - Other specified sepsis SNOMED: 286400238, 318304514 (6) Pneumonia due to COVID-19 virus ICD Codes: U07.1 - COVID-19; J12.89 - Other viral pneumonia SNOMED: 402790626, 658235001 (7) Sepsis due to severe acute respiratory syndrome coronavirus 2 (SARS-CoV-2) ICD Codes: U07.1 - COVID-19; A41.89 - Other specified sepsis SNOMED: 211871735, 076528148 Status: progressing, unchanged Assessment/Plan: lyte abnormality afebrile anemia of chronic renal disease trach and peg fungemia malnutrition .positive blood cx needs placement reviewed chart and labs Subjective ROS Limited/Unobtainable: Yes Allergies: Coded Allergies: No Known Allergies (Unverified , 05/28/19) Objective Last 24 Hour Vital Signs Date Time Temp Pulse Resp B/P (MAP) Pulse Ox O2 Delivery O2 Flow Rate FiO2 08/25/19 23:10 68 34 28 08/25/19 21:20 71 31 28 08/25/19 20:00 99.5 70 32 137/72 (93) 98 08/25/19 20:00 77 08/25/19 20:00 Mechanical Ventilator Mechanical Ventilator 08/25/19 20:00 30 08/25/19 18:56 76 33 28 08/25/19 16:00 Mechanical Ventilator Mechanical Ventilator 08/25/19 16:00 97.9 89 15 134/71 (92) 95 08/25/19 16:00 82 08/25/19 15:13 100 40 25 28 08/25/19 12:00 Mechanical Ventilator Mechanical Ventilator 08/25/19 12:00 108 08/25/19 12:00 99.4 106 17 126/78 (94) 95 08/25/19 10:50 100 28 25 28 08/25/19 10:47 100 08/25/19 08:00 99.3 80 19 128/73 (91) 98 08/25/19 08:00 84 08/25/19 08:00 Mechanical Ventilator Mechanical Ventilator 08/25/19 07:16 81 31 25 28 08/25/19 04:00 97.8 72 22 136/76 (96) 99 08/25/19 04:00 Mechanical Ventilator Mechanical Ventilator 08/25/19 03:36 80 08/25/19 03:27 79 31 28 08/25/19 00:00 Mechanical Ventilator Mechanical Ventilator 08/24/19 23:52 97.9 80 22 132/77 (95) 100 08/24/19 23:37 71 08/24/19 23:15 78 28 28 Intake and Output 08/24/19 08/25/19 19:00 07:00 Intake Total 680 ml 530 ml Balance 680 ml 530 ml Free Water 200 ml 50 ml Tube Feeding 480 ml 480 ml # Bowel Movements 6 5 Laboratory Tests 08/25/19 03:25: Random Vancomycin Level 16.7 08/25/19 04:43: POC Whole Blood Glucose 157H 08/25/19 13:15: POC Whole Blood Glucose [Pending] 08/25/19 18:39: POC Whole Blood Glucose [Pending] Height (Feet): 6 Height (Inches): 1.00 Weight (Pounds): 170 Cardiovascular: normal rate Respiratory/Chest: lungs clear Abdomen: soft Karishma Mulligan MD Aug 25, 2019 23:15
[2019-08-26] VITALS: BP 135/77
[2019-08-26] MEDS: NovoLOG Insulin Flexpen SUBQ SCH ×4 (00:27→18:00)
[2019-08-26 04:00] VITALS: BP 144/76
[2019-08-26] MEDS ORDERED: NS 275ml ONE (07:27)
[2019-08-26] MEDS ORDERED: Tubing IV Secondary IV ONE (07:27)
[2019-08-26 08:00] VITALS: BP 108/63
--- NOTE | 2019-08-26 08:37 | Infectious Diseases Prog Note ---
Assessment/Plan Assessment/Plan IMPRESSION: 1. COVID19 pneumonia Positive: 05/27, 05/31 , 06/05, 06/09 ,5, 06/19, 06/23, 06/27, 07/03, 07/15, 07/29 Negative: 07/26, 08/04, 08/05 2. MRSA carrier. 3. Chronic kidney disease , end-stage renal disease. 4. COPD. 5. Hypertension. 6. Anemia. 7. Hypothyroidism. 8. Hyperlipidemia. 9. Major depression. 10. Leukocytosis resolved 11. Hypotension 12. Hepatitis C 13. Hyperuricemia 14. Diarrhea, C difficile negative 15. septic shock 16.Sepsis blood cultures 08/08 & 08/12 : yeast blood culture: Staph Coagulase negative 17. Pneumonia with Staph aureus ( MRSA) 18. Candidal sepsis 19. Diarrhea, C. difficile negative RECOMMENDATIONS: continue Fluconazole & Vancomycin Will f/u blood culture Case was D/W RN Subjective ROS Limited/Unobtainable: Yes Constitutional: Denies: fever Allergies: Coded Allergies: No Known Allergies (Unverified , 05/28/19) Objective Last 24 Hour Vital Signs Date Time Temp Pulse Resp B/P (MAP) Pulse Ox O2 Delivery O2 Flow Rate FiO2 08/26/19 04:00 Mechanical Ventilator Mechanical Ventilator 08/26/19 04:00 30 08/26/19 04:00 73 08/26/19 04:00 98.4 72 26 144/76 (98) 100 08/26/19 03:13 73 26 28 08/26/19 00:00 98.4 78 34 135/77 (96) 100 08/26/19 00:00 Mechanical Ventilator Mechanical Ventilator 08/26/19 00:00 30 08/26/19 00:00 74 08/25/19 23:10 68 34 28 08/25/19 21:20 71 31 28 08/25/19 20:00 99.5 70 32 137/72 (93) 98 08/25/19 20:00 77 08/25/19 20:00 Mechanical Ventilator Mechanical Ventilator 08/25/19 20:00 30 08/25/19 18:56 76 33 28 08/25/19 16:00 Mechanical Ventilator Mechanical Ventilator 08/25/19 16:00 97.9 89 15 134/71 (92) 95 08/25/19 16:00 82 08/25/19 15:13 100 40 25 28 08/25/19 12:00 Mechanical Ventilator Mechanical Ventilator 08/25/19 12:00 108 08/25/19 12:00 99.4 106 17 126/78 (94) 95 08/25/19 10:50 100 28 25 28 08/25/19 10:47 100 Height (Feet): 6 Height (Inches): 1.00 Weight (Pounds): 168 HEENT: mucous membranes moist Respiratory/Chest: lungs clear, other - on ventilator Cardiovascular: normal rate, other - HD line Extremities: no edema Neurologic/Psychiatric: other - sleeping Microbiology Date/Time Source Procedure Growth Status 08/23/19 11:20 Blood Blood Culture - Preliminary NO GROWTH AFTER 48 HOURS Resulted 08/23/19 11:10 Blood Blood Culture - Preliminary NO GROWTH AFTER 48 HOURS Resulted Laboratory Tests Test 08/25/19 13:15 08/25/19 18:39 08/26/19 00:24 08/26/19 05:40 POC Whole Blood Glucose Pending Pending Pending Pending Current Medications Medications (Trade) Dose Ordered Sig/Anthony Route PRN Reason Start Time Stop Time Status Last Admin Dose Admin Acetaminophen (Tylenol) 650 mg Q4H PRN NG For Pain 08/04/19 21:38 09/03/19 21:37 08/23/19 12:26 Acetaminophen (Tylenol) 650 mg Q4H PRN NG Temp >100.5 08/15/19 13:30 09/08/19 08:29 08/23/19 23:24 Chlorhexidine Gluconate (Michelle-Hex 2%) 1 applic DAILY@2000 TOPIC 08/21/19 20:00 11/19/19 19:59 08/25/19 20:11 Dextrose (Dextrose 50%) 25 ml Q30M PRN IV Hypoglycemia 08/04/19 22:00 09/18/19 19:29 Dextrose (Dextrose 50%) 50 ml Q30M PRN IV Hypoglycemia 08/04/19 22:00 09/18/19 19:29 Diphenoxylate HCl/ Atropine (Lomotil) 2.5 mg BID NG 08/24/19 18:00 09/17/19 17:59 08/25/19 18:09 Enoxaparin Sodium (Lovenox) 30 mg DAILY SUBQ 08/05/19 09:00 09/25/19 08:59 08/25/19 09:45 Epoetin Aftab (Epoetin Aftab(ESRD on dialysis)) 10,000 unit SUBQ 08/11/19 21:00 11/09/19 20:59 08/25/19 20:12 Fluconazole (Diflucan) 200 mg DAILY NG 08/13/19 10:24 08/30/19 10:23 08/25/19 09:38 Haloperidol Lactate 5 mg/ Dextrose 56 ml @ 224 mls/hr Q6H PRN IVPB Agitation 08/04/19 21:38 09/18/19 21:37 08/19/19 02:26 Hydralazine HCl (Apresoline) 10 mg Q4H PRN IV Blood pressure over 160 systol 08/04/19 21:39 11/02/19 21:38 Insulin Aspart (NovoLOG) EVERY 6 HOURS SUBQ 08/05/19 00:00 09/19/19 00:00 08/26/19 05:41 Loperamide HCl (Imodium) 2 mg Q6H NG 08/18/19 14:00 09/15/19 13:59 08/26/19 02:00 Midodrine (Pro-Amatine) 10 mg THREE TIMES A DAY NG 08/15/19 18:00 11/13/19 17:59 08/25/19 18:10 Pantoprazole (Protonix) 40 mg DAILY IVP 08/05/19 09:00 08/26/19 08:59 08/25/19 09:38 Vancomycin HCl (Vanco pharmacy to dose) 1 ea DAILY PRN MISC Per rx protocol 08/15/19 08:45 09/14/19 08:44 Ted Leyva MD Aug 26, 2019 08:37
[2019-08-26 09:07] LABS: HEMATOCRIT 28.9 % (42.0-52.0); HEMOGLOBIN 8.5 G/DL (14.2-18.0); MEAN CORPUSCULAR VOLUME 91 FL (80-99); PLATELET COUNT 418 K/UL (150-450); RED BLOOD COUNT 3.18 M/UL (4.70-6.10); RED CELL DISTRIBUTION WIDTH 17.8 % (11.6-14.8); WHITE BLOOD COUNT 4.3 K/UL (4.8-10.8)
[2019-08-26 09:20] LABS: ANION GAP 12 mmol/L (5-15); BLOOD UREA NITROGEN 42 mg/dL (7-18); CALCIUM 9.1 MG/DL (8.5-10.1); CARBON DIOXIDE 28 MMOL/L (21-32); CHLORIDE 101 MMOL/L (98-107); CREATININE 5.7 MG/DL (0.55-1.30); POTASSIUM 3.1 MMOL/L (3.5-5.1); SODIUM 141 MMOL/L (136-145)
[2019-08-26 09:31] LABS: ALANINE AMINOTRANSFERASE 12 U/L (12-78); ALBUMIN 2.5 G/DL (3.4-5.0); ALBUMIN/GLOBULIN RATIO 0.5 (1.0-2.7); ALKALINE PHOSPHATASE 98 U/L (46-116); BILIRUBIN,TOTAL 0.3 MG/DL (0.2-1.0); PHOSPHORUS 2.6 MG/DL (2.5-4.9)
[2019-08-26 09:40] LABS: ASPARTATE AMINO TRANSFERASE 19 U/L (15-37)
[2019-08-26] MEDS: Lomotil 2.5mg tab NG SCH ×2 (09:54→18:08)
[2019-08-26] MEDS: Fluconazole 100mg tab NG SCH (09:55)
[2019-08-26] MEDS: Midodrine 10mg tab NG SCH ×3 (09:55→18:09)
[2019-08-26] MEDS: Enoxaparin 30mg Inj SUBQ SCH (09:57)
[2019-08-26 12:00] VITALS: BP 128/64
--- NOTE | 2019-08-26 12:26 | General Progress Note ---
Assessment/Plan Status: progressing, unchanged Assessment/Plan: 1. Diabetes. 2. Hypertension. 3. Coronary artery disease. 4. COPD. 5. Psychiatric disorder with schizophrenia. 6. History of hepatitis C. 7. HLP. 8. Chronic kidney disease, now with acute renal failure. 9. Anemia. 10. Hypothyroidism. 11. Spinal stenosis. 12. Constipation. 13. GERD. 14. COVID positive HD per nephrology fu labs s/p PEG GTF TF at 40 cc imodium lomotil neg C.diff off reglan monitor for residuals Subjective ROS Limited/Unobtainable: No Allergies: Coded Allergies: No Known Allergies (Unverified , 05/28/19) Objective Last 24 Hour Vital Signs Date Time Temp Pulse Resp B/P (MAP) Pulse Ox O2 Delivery O2 Flow Rate FiO2 08/26/19 10:55 78 33 28 08/26/19 08:00 97.2 76 23 108/63 (78) 99 08/26/19 08:00 30 08/26/19 08:00 Mechanical Ventilator Mechanical Ventilator 08/26/19 08:00 71 34 28 08/26/19 08:00 76 08/26/19 04:00 Mechanical Ventilator Mechanical Ventilator 08/26/19 04:00 30 08/26/19 04:00 73 08/26/19 04:00 98.4 72 26 144/76 (98) 100 08/26/19 03:13 73 26 28 08/26/19 00:00 98.4 78 34 135/77 (96) 100 08/26/19 00:00 Mechanical Ventilator Mechanical Ventilator 08/26/19 00:00 30 08/26/19 00:00 74 08/25/19 23:10 68 34 28 08/25/19 21:20 71 31 28 08/25/19 20:00 99.5 70 32 137/72 (93) 98 08/25/19 20:00 77 08/25/19 20:00 Mechanical Ventilator Mechanical Ventilator 08/25/19 20:00 30 08/25/19 18:56 76 33 28 08/25/19 16:00 Mechanical Ventilator Mechanical Ventilator 08/25/19 16:00 97.9 89 15 134/71 (92) 95 08/25/19 16:00 82 08/25/19 15:13 100 40 25 28 Intake and Output 08/25/19 08/26/19 19:00 07:00 Intake Total 630 ml 500 ml Output Total 0 ml Balance 630 ml 500 ml Free Water 150 ml 100 ml Tube Feeding 480 ml 400 ml Hemodialysis UF 0 ml # Bowel Movements 6 3 Laboratory Tests 08/25/19 13:15: POC Whole Blood Glucose [Pending] 08/25/19 18:39: POC Whole Blood Glucose [Pending] 08/26/19 00:24: POC Whole Blood Glucose [Pending] 08/26/19 05:40: POC Whole Blood Glucose [Pending] 08/26/19 08:45: White Blood Count 4.3L, Red Blood Count 3.18L, Hemoglobin 8.5L, Hematocrit 28.9L , Mean Corpuscular Volume 91, Mean Corpuscular Hemoglobin 26.6L, Mean Corpuscular Hemoglobin Concent 29.3L, Red Cell Distribution Width 17.8H, Platelet Count 418, Mean Platelet Volume 6.3L, Neutrophils (%) (Auto) , Lymphocytes (%) (Auto) , Monocytes (%) (Auto) , Eosinophils (%) (Auto) , Basophils (%) (Auto) , Differential Total Cells Counted 100, Neutrophils % ( Manual) 48, Lymphocytes % (Manual) 26, Monocytes % (Manual) 20H, Eosinophils % ( Manual) 5H, Basophils % (Manual) 0, Band Neutrophils 1, Platelet Estimate Adequate, Platelet Morphology Normal, Hypochromasia 1+, Anisocytosis 1+, Sodium Level 141, Potassium Level 3.1L, Chloride Level 101, Carbon Dioxide Level 28, Anion Gap 12, Blood Urea Nitrogen 42H, Creatinine 5.7H, Estimat Glomerular Filtration Rate 10.0, Glucose Level 158H, Calcium Level 9.1, Phosphorus Level 2.6, Total Bilirubin 0.3, Aspartate Amino Transf (AST/SGOT) 19, Alanine Aminotransferase (ALT/SGPT) 12, Alkaline Phosphatase 98, C-Reactive Protein, Quantitative 15.7H, Pro-B-Type Natriuretic Peptide > 21534A, Total Protein 8.0, Albumin 2.5L, Globulin 5.5, Albumin/Globulin Ratio 0.5L Height (Feet): 6 Height (Inches): 1.00 Weight (Pounds): 168 General Appearance: alert EENT: normal ENT inspection Neck: supple Cardiovascular: normal rate Respiratory/Chest: decreased breath sounds Abdomen: normal bowel sounds, non tender, soft Extremities: non-tender Marito Ramires MD Aug 26, 2019 12:26
--- NOTE | 2019-08-26 13:01 | Surgery Progress Note ---
Surgery Progress Note Subjective Procedure Performed Insertion of left subclavian temporary hemodialysis catheter Tracheostomy exchange 8 Brazilian Shiley Additional Comments afebrile HD stable improving sitting up with glasses on today HD going well Objective Last 24 Hour Vital Signs Date Time Temp Pulse Resp B/P (MAP) Pulse Ox O2 Delivery O2 Flow Rate FiO2 08/26/19 12:00 Mechanical Ventilator Mechanical Ventilator 08/26/19 12:00 30 08/26/19 12:00 97.5 71 20 128/64 (85) 100 08/26/19 10:55 78 33 28 08/26/19 08:00 97.2 76 23 108/63 (78) 99 08/26/19 08:00 30 08/26/19 08:00 Mechanical Ventilator Mechanical Ventilator 08/26/19 08:00 71 34 28 08/26/19 08:00 76 08/26/19 04:00 Mechanical Ventilator Mechanical Ventilator 08/26/19 04:00 30 08/26/19 04:00 73 08/26/19 04:00 98.4 72 26 144/76 (98) 100 08/26/19 03:13 73 26 28 08/26/19 00:00 98.4 78 34 135/77 (96) 100 08/26/19 00:00 Mechanical Ventilator Mechanical Ventilator 08/26/19 00:00 30 08/26/19 00:00 74 08/25/19 23:10 68 34 28 08/25/19 21:20 71 31 28 08/25/19 20:00 99.5 70 32 137/72 (93) 98 08/25/19 20:00 77 08/25/19 20:00 Mechanical Ventilator Mechanical Ventilator 08/25/19 20:00 30 08/25/19 18:56 76 33 28 08/25/19 16:00 Mechanical Ventilator Mechanical Ventilator 08/25/19 16:00 97.9 89 15 134/71 (92) 95 08/25/19 16:00 82 08/25/19 15:13 100 40 25 28 I&O Intake and Output 08/25/19 08/26/19 19:00 07:00 Intake Total 630 ml 500 ml Output Total 0 ml Balance 630 ml 500 ml Free Water 150 ml 100 ml Tube Feeding 480 ml 400 ml Hemodialysis UF 0 ml # Bowel Movements 6 3 Dressing: other Wound: other Drains: other Cardiovascular: RSR Respiratory: clear Abdomen: distended, non-tender, present bowel sounds Extremities: no tenderness, no cyanosis Laboratory Tests Test 08/25/19 13:15 08/25/19 18:39 08/26/19 00:24 08/26/19 05:40 POC Whole Blood Glucose Pending Pending Pending Pending Test 08/26/19 08:45 08/26/19 12:26 White Blood Count 4.3 K/UL (4.8-10.8) L Red Blood Count 3.18 M/UL (4.70-6.10) L Hemoglobin 8.5 G/DL (14.2-18.0) L Hematocrit 28.9 % (42.0-52.0) L Mean Corpuscular Volume 91 FL (80-99) Mean Corpuscular Hemoglobin 26.6 PG (27.0-31.0) L Mean Corpuscular Hemoglobin Concent 29.3 G/DL (32.0-36.0) L Red Cell Distribution Width 17.8 % (11.6-14.8) H Platelet Count 418 K/UL (150-450) Mean Platelet Volume 6.3 FL (6.5-10.1) L Neutrophils (%) (Auto) % (45.0-75.0) Lymphocytes (%) (Auto) % (20.0-45.0) Monocytes (%) (Auto) % (1.0-10.0) Eosinophils (%) (Auto) % (0.0-3.0) Basophils (%) (Auto) % (0.0-2.0) Differential Total Cells Counted 100 Neutrophils % (Manual) 48 % (45-75) Lymphocytes % (Manual) 26 % (20-45) Monocytes % (Manual) 20 % (1-10) H Eosinophils % (Manual) 5 % (0-3) H Basophils % (Manual) 0 % (0-2) Band Neutrophils 1 % (0-8) Platelet Estimate Adequate Platelet Morphology Normal Hypochromasia 1+ Anisocytosis 1+ Sodium Level 141 MMOL/L (136-145) Potassium Level 3.1 MMOL/L (3.5-5.1) L Chloride Level 101 MMOL/L (98-107) Carbon Dioxide Level 28 MMOL/L (21-32) Anion Gap 12 mmol/L (5-15) Blood Urea Nitrogen 42 mg/dL (7-18) H Creatinine 5.7 MG/DL (0.55-1.30) H Estimat Glomerular Filtration Rate 10.0 mL/min (>60) Glucose Level 158 MG/DL (74-106) H Calcium Level 9.1 MG/DL (8.5-10.1) Phosphorus Level 2.6 MG/DL (2.5-4.9) Total Bilirubin 0.3 MG/DL (0.2-1.0) Aspartate Amino Transf (AST/SGOT) 19 U/L (15-37) Alanine Aminotransferase (ALT/SGPT) 12 U/L (12-78) Alkaline Phosphatase 98 U/L (46-116) C-Reactive Protein, Quantitative 15.7 mg/dL (0.00-0.90) H Pro-B-Type Natriuretic Peptide > 58214 pg/mL (0-125) H Total Protein 8.0 G/DL (6.4-8.2) Albumin 2.5 G/DL (3.4-5.0) L Globulin 5.5 g/dL Albumin/Globulin Ratio 0.5 (1.0-2.7) L POC Whole Blood Glucose Pending Plan Problems: (1) Suspected COVID-19 virus infection (2) HTN (hypertension) (3) CASSANDRA (acute kidney injury) Assessment & Plan: Needs urgent HD needs access patient okay and consented see note will follow with recs new line placed discussed with team and nephrology HD line functional when checked has TPA now please use appropriately Cathflo used again this flow during dialysis on 430 was low. Will monitor may need line change 5/4 plan for HD as per renal may need to take fluid off with HD edema anasarca dressings saturated and changed will monitor cont with HD IJ left line placed for HD given extent of prior line in place. leukocytosis blood cx negative may need to change out line new line okay HD going well Continue HD as tolerated May need pressors for HD as needed (4) Anemia in chronic kidney disease (CKD) (5) Anemia (6) Renal failure (7) Suspected COVID-19 virus infection Assessment & Plan: Pt deconditioned and despite all skin preventions Pt noted to have developed several pressure injuries. . Stable dry eschar noted to clefts of R and L ears. No erythema noted . DTPI noted to L trochanter. Base of injury is maroon in colour with marginal erythema along borders. Partially opened DTPI Sacrum, R and L Buttocks. Base of wound is maroon with two small open wounds L sacrum and L buttocks. Pt has an APM/MOMO Mattress overlay and is being positioned with pillows as per tolerance and within protocols. worsening despite medical efforts will cont to provide therapy Tx.Plan: Apply Cavilon Skin Barrier to both ears Daily and prn. Apply Moisture Barrier Paste to Sacrum,R and L Buttocks. Cover with Optifoam drsgs. Change every 3 days and PRN. Apply Cavilon Skin Barrier to R and L trochanter. Cover each site with Optifoam drsgs.Change every 7 days and PRN. Apply Cavilon Skin Barrier to both heels. Cover each heel with Optifoam drsg. Change every 7 days and prn. Off-load heels with pillow. Reposition at least every 2hours or as tolerated. APM/MOMO Mattress overlay. (8) COVID-19 Assessment & Plan: COVID + c diff negative febrile leukocytosis renal insufficiency see above cont resp care Rx as per ID worsening on vent support now cxr noted on pressors prognosis guarded repeat covid ++ weaning vent and pressors off slowly showing improvement slowly recovering will need trach as unable to wean vent safely [facility]. consent obtained s/p trach pending peg worsening on levo max (9) Sepsis Assessment & Plan: worsening leukocytosis febrile on pressors discussed with ID. lines evaluated and clean. he is septic on pressors and needs central access in difficult venous access patient blood cultures negative will monitor temp HD cath out now with permacath left tlc still subclavian needed line c/d/i line negative c diff negative wbc resolved improved d/c planning febrile leukocytosis hold d/c infectious work up in place yeast in cultures fevers persistent fungemia abx as per ID hold on line removal cont abx repeat cx Plan for line removal plan for line holiday will replace dialysis catheter PRN Hemodialysis line change August 20 Tracheostomy exchange 8 Brazilian Shiley due to balloon insufficiency August 20 Yaniv Mast Aug 26, 2019 13:01
--- NOTE | 2019-08-26 13:54 | Nephrology Progress Note ---
Assessment/Plan Problem List: (1) CASSANDRA (acute kidney injury) (2) Anemia in chronic kidney disease (CKD) (3) HTN (hypertension) (4) COVID-19 Assessment Acute renal failure most likely superimposed on chronic kidney disease Suspected COVID-19 virus infection Possible Pneumonia, lymphopenia, elevated AST Cardiomegaly, possible CHF COPD Hypertension Anemia, most likely related to chronic kidney disease Plan August 25: Dialyzed yesterday. No UF. Blood pressure is stable. Potassium supplement given. Next hemodialysis planned for August 27. Will order sooner if needed. August 24: No chemistry panel today. Due for dialysis today. Blood pressure stable. August 23: Labs reviewed. Potassium supplement given. Blood pressure is stable. Due for dialysis tomorrow. No ultrafiltration will be done. August 22: Patient was dialyzed yesterday. Pressure low today. 500 cc albumin ordered. Continue to monitor renal parameters. Continue to be on Midodrin. August 21: A temporary catheter for dialysis was put in yesterday, and the patient is due for dialysis today. Continue per consultants. August 20: Patient due for insertion of a temporary dialysis catheter. I ordered dialysis for tomorrow August 21. Continue per consultants. Discussed with Donna " August 19: Permacath discontinued. Due for temporary non-tunneled dialysis access. White blood cells are up to over 14,000. Will dialyze as needed. August 18: Discussed with ID and general surgery. Will remove the permacath which is thought to be infected by IR today. Will monitor renal parameters. Will obtain surveillance cultures tomorrow. Will attempt to put a temporary dialysis access in 48 to 72 hours for dialysis purposes. August 17: Last dialysis August 15, no blood work done today yet. Will reassess if dialysis should be continued. Continue per current management. We will make arrangement to DC permacath and reinsert a new one via general surgery and or interventional radiology August 16: Albumin for low BP. Continue to monitor renal parameters. August 15: Due for dialysis today. Remains borderline low. No ultrafiltration during dialysis. Discussed with SHANIQUE Macdonald. August 14: No labs done today. Patient hypotensive. Normal saline and albumin bolus given. Midodrin started. Will check lab tomorrow. August 13: Lab reviewed. Last dialysis yesterday. Next dialysis August 15. Potassium and phosphorus supplement given. Continue per consultants. Mel 3: No can panel done today. Due for dialysis today. Continue per consultants. August 11: Patient labs reviewed. Will order dialysis tomorrow. Continue per consultants. August 10: Patient was dialyzed yesterday. Today's labs checked. Stable from renal standpoint to view August 09: Patient scheduled for hemodialysis today. Will check labs tomorrow. August 08: Lab reviewed. Hemodialysis scheduled for tomorrow. August 07: Dialyzed yesterday. No labs drawn today. Will check labs tomorrow. Continue per consultants. August 06: Patient on dialysis now. Discussed with dialysis nurse. Slight catheter malfunction persist. August 05: Labs reviewed. Dialysis scheduled for tomorrow. Continue per consultants. August 04: No labs done today. Dialyzed yesterday. Check labs tomorrow. Continue per consultants. August 03: Lab reviewed. Due for dialysis today. White blood cell 17,500. August 02: Lab reviewed. Low phosphorus replaced. Hemodialysis ordered for tomorrow. White blood cells over 18,000. August 01: Labs reviewed. Potassium replacement ordered. Remains full code on ventilator via trach. Continue per consultants. July 31: Dialyzed yesterday. No can panel today. Remains full code. Remains on ventilator. Being fed through PEG. Continue per consultants. July 30: Patient due for dialysis today. Labs are reviewed. Remains full code. Status post trach to ventilator. Status post PEG. July 29: Patient dialyzed yesterday. Due for dialysis tomorrow. Remains in ICU. Full code. Status post trach tube to ventilator. Status post PEG. July 28: Due for dialysis today. Labs reviewed. Full code. Patient trached and vented. July 27: Last COVID test negative. COVID test will be repeated tomorrow. Will order dialysis tomorrow. Remains full code. Medication list and labs reviewed. July 26: No labs done today. Dialysis done yesterday. Will check lab tomorrow. Dialysis as needed. July 25: Lab reviewed. Dialysis today. Discussed with RN. July 24: Lab reviewed. Do dialysis tomorrow. Discussed with RN. July 23: Lab reviewed. Dialyzed yesterday. Discussed with RN. Remains full code. Next dialysis July 25. Will check labs tomorrow. July 22: Labs reviewed. Due for dialysis today. Discussed with RN. Watch borderline low blood pressure. Discussed with dialysis nurse. July 21: Today's lab reviewed. Will arrange for dialysis tomorrow. Discussed with RN. Aim to keep the blood pressure above 100 systolic. Continue per consultants. July 20: Patient was dialyzed yesterday. Could not ultrafiltrate much due to low blood pressure. Discussed with SHANIQUE Dick today. No labs drawn today. Continue per consultants. July 19: Due for dialysis today. Discussed with SHANIQUE Dick. Continue per consultants. July 18: Dialyzed July 16. Will order dialysis tomorrow July 19. Continues to be on ventilator through trach. No labs done today. Continue per consultants. July 17: Dialyzed yesterday. Stable from renal standpoint of view. Remains full code. Status post trach on vent. Status post PEG. Continue per consultants. July 16: Dialysis today. Will resume Midodrin to prevent hypotension. Patient remains full code. July 15: Dialyzed yesterday, due for dialysis tomorrow. Labs and medication list reviewed. Continue per consultants. Patient remains full code. COVID-19 detected again. July 14: Patient currently on dialysis. This is continuation of dialysis from yesterday as yesterday's dialysis was cut short due to catheter malfunction. Labs and medication reviewed. Continue per consultants. July 13: Patient currently on hemodialysis. The dialysis catheter which is a intrajugular Kamlesh has poor flow. Will try TPA. Continue per consultants. July 12: Due for PEG today. Due for dialysis tomorrow. Continue per consultants. Discussed with RN. July 11: Plan for dialysis today. Discussed with RN. Data reviewed. July 10: Plan for dialysis tomorrow July 11. Waiting for consent to proceed with PEG. Continue per consultants. Medication reviewed. Labs reviewed. Discussed with RN. July 09: Dialyzed yesterday. Labs reviewed. Medication reviewed. Next hemodialysis July 11. July 08: Patient has tracheostomy now. Connected to ventilator. Due for dialysis today. Continue per consultants. Discussed with SHANIQUE Romero. July 07: Patient is due for tracheostomy today. Patient was last dialyzed July 05. Will order dialysis for tomorrow. July 06: Patient is intubated on ventilator however the plan is to extubate today. Patient was dialysis yesterday July 05. The dialysis time was cut short due to patient's respiratory distress. Only 1 L was removed during dialysis yesterday. Today's lab reviewed. Continue per consultants. Will arrange for dialysis as needed. July 05: Patient due for dialysis today. Remains intubated. Will schedule permacath placement in a.m. blood cultures on July 04 are negative. July 04: Patient was dialyzed yesterday. Due for dialysis tomorrow. Continues to be intubated. After tomorrow's dialysis will order a permacath. July 03: Dialysis is about to be started now Continues to be intubated Will plan to remove the femoral dialysis catheter and exchanged for a new temporary catheter per ID recommendation We will check surveillance blood culture tomorrow July 02: Patient was dialyzed yesterday and due for dialysis tomorrow Stable from renal standpoint W on dialysis Continue per consultants, weaning....... etc. July 01: Dialysis today Other status unchanged June 30: Due for dialysis tomorrow Remains intubated on ventilator Labs and medication reviewed Discussed with RN Stable from renal standpoint of view June 29: Dialyzed yesterday Due for dialysis tomorrow Stable from renal standpoint to view Keeps failing weaning process June 28: Patient due for dialysis today Stable from renal standpoint to view Continue per consultants June 27: Labs reviewed Due due for dialysis June 28 Discussed with SHANIQUE Dick Continue per consultants Remains intubated on ventilator June 26 Labs reviewed Dialyzed yesterday Started on weaning today Continue to monitor renal parameters June 25: On dialysis now Potassium supplement implemented Continue per consultants Next dialysis June 27June 15: Status unchanged Dialyzed yesterday will dialyze again tomorrow Potassium supplements given Discussed with RN June 14: Due dialysis today Status: Remains intubated on ventilator June 22: Status unchanged Dialyzed yesterday and duefordialysistomorrow Serum sodium stable today June 21 Remains intubated on ventilator Due dialysis today Emphasized high sodium bath for dialysis June 20: Remains intubated on ventilator Dialyzed June 19 next dialysis June 21 Serum sodium 128, will give 250 cc 3% saline Remains full code Discussed with RN Iron panel ordered June 19: Discussed with RN. Patient due for dialysis today. Continue pulmonary support. Remains full code. June 18: Patient dialyzed yesterday June 17 Serum sodium improved but still low Arrange for dialysis tomorrow June 19 Continue per consultants June 17: Due for dialysis today Today's lab reviewed, low serum sodium noted, Emphasized on high sodium bath to dialysis nurse Discussed with SHANIQUE Yuen May 7: Dialyzed yesterday Remains intubated Labs reviewed, serum sodium 131 Plan to dialyze tomorrow June 17 with high sodium bath Discussed with SHANIQUE Yuen June 15: Due for dialysis today Labs reviewed Discussed with RN Transfuse 1 unit of packed RBCs today for low hemoglobin of 7.1 June 5: Blood pressure well maintained Receive dialysis June 13 next hemodialysis June 15June 4: Discussed with RN in ICU Patient did not receive proper dialysis yesterday due to dialysis catheter malfunction Catheter to be adjusted today and dialyzed to be resumed today Continue per consultants Positive for COVID 28 June 2: Patient now intubated on mechanical ventilation Discussed with SHANIQUE Yuen, today June 12 Patient received dialysis yesterday June 10 next hemodialysis June 12 Blood pressure better maintained Today's labs reviewed Continue per consultants Previously patient received dialysis last evening June 05, next dialysis June 07 which was incomplete due to patient's hypotension Will start on midodrine for blood pressure support. Meanwhile continue other pressors as needed Previously Patient is doing poorly, septic, white blood cells are rising, Hypotension somewhat improved We will keep n.p.o. , NG tube for medications, and change medication to IV as needed Patient remains full code Monitor vancomycin level Previously: Patient pulled out his femoral catheter yesterday June 03 which was reinserted by Dr. Mast Patient scheduled for dialysis again June 04, which again was not done due to dialysis nurse citing catheter malfunction Meanwhile continue management per ID, pulmonary , and psych. Meanwhile white blood cell count is rising. Patient blood pressure borderline low. Will check ABG Previously May 31 : I believe patient need dialysis treatment He however needs to competency assessment if can make decisions or not I will communicate with Dr. Mulligan Previously: Per pulmonary and ID advice Adjust blood pressure medication Renal diet Anemia work-up 2D echocardiogram refused Kidney ultrasound refused Jules catheter Urine studies Per orders Subjective ROS Limited/Unobtainable: Yes Objective Objective Last 24 Hour Vital Signs Date Time Temp Pulse Resp B/P (MAP) Pulse Ox O2 Delivery O2 Flow Rate FiO2 08/26/19 12:00 Mechanical Ventilator Mechanical Ventilator 08/26/19 12:00 30 08/26/19 12:00 97.5 71 20 128/64 (85) 100 08/26/19 10:55 78 33 28 08/26/19 08:00 97.2 76 23 108/63 (78) 99 08/26/19 08:00 30 08/26/19 08:00 Mechanical Ventilator Mechanical Ventilator 08/26/19 08:00 71 34 28 08/26/19 08:00 76 08/26/19 04:00 Mechanical Ventilator Mechanical Ventilator 08/26/19 04:00 30 08/26/19 04:00 73 08/26/19 04:00 98.4 72 26 144/76 (98) 100 08/26/19 03:13 73 26 28 08/26/19 00:00 98.4 78 34 135/77 (96) 100 08/26/19 00:00 Mechanical Ventilator Mechanical Ventilator 08/26/19 00:00 30 08/26/19 00:00 74 08/25/19 23:10 68 34 28 08/25/19 21:20 71 31 28 08/25/19 20:00 99.5 70 32 137/72 (93) 98 08/25/19 20:00 77 08/25/19 20:00 Mechanical Ventilator Mechanical Ventilator 08/25/19 20:00 30 08/25/19 18:56 76 33 28 08/25/19 16:00 Mechanical Ventilator Mechanical Ventilator 08/25/19 16:00 97.9 89 15 134/71 (92) 95 08/25/19 16:00 82 08/25/19 15:13 100 40 25 28 Intake and Output 08/25/19 08/26/19 19:00 07:00 Intake Total 630 ml 500 ml Output Total 0 ml Balance 630 ml 500 ml Free Water 150 ml 100 ml Tube Feeding 480 ml 400 ml Hemodialysis UF 0 ml # Bowel Movements 6 3 Laboratory Tests 08/25/19 18:39: POC Whole Blood Glucose [Pending] 08/26/19 00:24: POC Whole Blood Glucose [Pending] 08/26/19 05:40: POC Whole Blood Glucose [Pending] 08/26/19 08:45: White Blood Count 4.3L, Red Blood Count 3.18L, Hemoglobin 8.5L, Hematocrit 28.9L , Mean Corpuscular Volume 91, Mean Corpuscular Hemoglobin 26.6L, Mean Corpuscular Hemoglobin Concent 29.3L, Red Cell Distribution Width 17.8H, Platelet Count 418, Mean Platelet Volume 6.3L, Neutrophils (%) (Auto) , Lymphocytes (%) (Auto) , Monocytes (%) (Auto) , Eosinophils (%) (Auto) , Basophils (%) (Auto) , Differential Total Cells Counted 100, Neutrophils % ( Manual) 48, Lymphocytes % (Manual) 26, Monocytes % (Manual) 20H, Eosinophils % ( Manual) 5H, Basophils % (Manual) 0, Band Neutrophils 1, Platelet Estimate Adequate, Platelet Morphology Normal, Hypochromasia 1+, Anisocytosis 1+, Sodium Level 141, Potassium Level 3.1L, Chloride Level 101, Carbon Dioxide Level 28, Anion Gap 12, Blood Urea Nitrogen 42H, Creatinine 5.7H, Estimat Glomerular Filtration Rate 10.0, Glucose Level 158H, Calcium Level 9.1, Phosphorus Level 2.6, Total Bilirubin 0.3, Aspartate Amino Transf (AST/SGOT) 19, Alanine Aminotransferase (ALT/SGPT) 12, Alkaline Phosphatase 98, C-Reactive Protein, Quantitative 15.7H, Pro-B-Type Natriuretic Peptide > 99310K, Total Protein 8.0, Albumin 2.5L, Globulin 5.5, Albumin/Globulin Ratio 0.5L 08/26/19 12:26: POC Whole Blood Glucose [Pending] Height (Feet): 6 Height (Inches): 1.00 Weight (Pounds): 168 General Appearance: no apparent distress EENT: other - Trach and vent Respiratory/Chest: decreased breath sounds Abdomen: distended, other - PEG Objective No change Mic Cole MD Aug 26, 2019 13:54
[2019-08-26 16:00] VITALS: BP 135/72
--- NOTE | 2019-08-26 17:05 | Cardiac Electrophysiology PN ---
Assessment/Plan Assessment/Plan 1. NSTEMI type 2. Low level and flat due to renal failure. On Aspirin. EF 60%. 2. S/P Septic shock. On Abx. On Midodrine 10 tid. 3. ESRD, on HD per Dr. Cole. S/P Left SC Kamlesh catheter placement by Dr Mast 4. VDRF due to COVID pneumonia. S/P Tracheostomy 07/08/19. 5. Atrial fib with RVR. Off Lopressor for Low BP, in SR 6. Dysphagia, S/P PEG 07/13/19 7. COPD. 8. Anemia. 9. Diarrhea DW RN Subjective Subjective In SDU on the vent via trach. Off pressors. Fio2 28%. Off isolation as Covid negative on 08/07/19. S/P subclavian Kamlesh catheter by Dr. Mast Awaiting another Covid before going back to [facility] Objective Last 24 Hour Vital Signs Date Time Temp Pulse Resp B/P (MAP) Pulse Ox O2 Delivery O2 Flow Rate FiO2 08/26/19 16:00 Mechanical Ventilator Mechanical Ventilator 08/26/19 16:00 30 08/26/19 15:22 69 28 28 08/26/19 12:00 Mechanical Ventilator Mechanical Ventilator 08/26/19 12:00 70 08/26/19 12:00 30 08/26/19 12:00 97.5 71 20 128/64 (85) 100 08/26/19 10:55 78 33 28 08/26/19 08:00 97.2 76 23 108/63 (78) 99 08/26/19 08:00 30 08/26/19 08:00 Mechanical Ventilator Mechanical Ventilator 08/26/19 08:00 71 34 28 08/26/19 08:00 76 08/26/19 04:00 Mechanical Ventilator Mechanical Ventilator 08/26/19 04:00 30 08/26/19 04:00 73 08/26/19 04:00 98.4 72 26 144/76 (98) 100 08/26/19 03:13 73 26 28 08/26/19 00:00 98.4 78 34 135/77 (96) 100 08/26/19 00:00 Mechanical Ventilator Mechanical Ventilator 08/26/19 00:00 30 08/26/19 00:00 74 08/25/19 23:10 68 34 28 08/25/19 21:20 71 31 28 08/25/19 20:00 99.5 70 32 137/72 (93) 98 08/25/19 20:00 77 08/25/19 20:00 Mechanical Ventilator Mechanical Ventilator 08/25/19 20:00 30 08/25/19 18:56 76 33 28 Intake and Output 08/25/19 08/26/19 19:00 07:00 Intake Total 630 ml 500 ml Output Total 0 ml Balance 630 ml 500 ml Free Water 150 ml 100 ml Tube Feeding 480 ml 400 ml Hemodialysis UF 0 ml # Bowel Movements 6 3 Laboratory Tests Test 08/25/19 18:39 08/26/19 00:24 08/26/19 05:40 08/26/19 08:45 POC Whole Blood Glucose Pending Pending Pending White Blood Count 4.3 K/UL (4.8-10.8) L Red Blood Count 3.18 M/UL (4.70-6.10) L Hemoglobin 8.5 G/DL (14.2-18.0) L Hematocrit 28.9 % (42.0-52.0) L Mean Corpuscular Volume 91 FL (80-99) Mean Corpuscular Hemoglobin 26.6 PG (27.0-31.0) L Mean Corpuscular Hemoglobin Concent 29.3 G/DL (32.0-36.0) L Red Cell Distribution Width 17.8 % (11.6-14.8) H Platelet Count 418 K/UL (150-450) Mean Platelet Volume 6.3 FL (6.5-10.1) L Neutrophils (%) (Auto) % (45.0-75.0) Lymphocytes (%) (Auto) % (20.0-45.0) Monocytes (%) (Auto) % (1.0-10.0) Eosinophils (%) (Auto) % (0.0-3.0) Basophils (%) (Auto) % (0.0-2.0) Differential Total Cells Counted 100 Neutrophils % (Manual) 48 % (45-75) Lymphocytes % (Manual) 26 % (20-45) Monocytes % (Manual) 20 % (1-10) H Eosinophils % (Manual) 5 % (0-3) H Basophils % (Manual) 0 % (0-2) Band Neutrophils 1 % (0-8) Platelet Estimate Adequate Platelet Morphology Normal Hypochromasia 1+ Anisocytosis 1+ Sodium Level 141 MMOL/L (136-145) Potassium Level 3.1 MMOL/L (3.5-5.1) L Chloride Level 101 MMOL/L (98-107) Carbon Dioxide Level 28 MMOL/L (21-32) Anion Gap 12 mmol/L (5-15) Blood Urea Nitrogen 42 mg/dL (7-18) H Creatinine 5.7 MG/DL (0.55-1.30) H Estimat Glomerular Filtration Rate 10.0 mL/min (>60) Glucose Level 158 MG/DL (74-106) H Calcium Level 9.1 MG/DL (8.5-10.1) Phosphorus Level 2.6 MG/DL (2.5-4.9) Total Bilirubin 0.3 MG/DL (0.2-1.0) Aspartate Amino Transf (AST/SGOT) 19 U/L (15-37) Alanine Aminotransferase (ALT/SGPT) 12 U/L (12-78) Alkaline Phosphatase 98 U/L (46-116) C-Reactive Protein, Quantitative 15.7 mg/dL (0.00-0.90) H Pro-B-Type Natriuretic Peptide > 10732 pg/mL (0-125) H Total Protein 8.0 G/DL (6.4-8.2) Albumin 2.5 G/DL (3.4-5.0) L Globulin 5.5 g/dL Albumin/Globulin Ratio 0.5 (1.0-2.7) L Hepatitis A IgM Antibody Pending Hepatitis B Surface Antigen Pending Hepatitis B Core IgM Antibody Pending Hepatitis C Antibody Pending Test 08/26/19 12:26 POC Whole Blood Glucose Pending Objective HEAD AND NECK: No JVD. Tracheostomy in place. Left SC Kamlesh now in place. LUNGS: Decreased breath sounds. CARDIOVASCULAR: Regular S1 and S2. Tachycardic. ABDOMEN: Soft. PEG in place EXTREMITIES: No pitting edema. Gio Baker MD Aug 26, 2019 17:05
--- NOTE | 2019-08-26 19:12 | Hematology/Onc Progress Note ---
Assessment/Plan Assessment/Plan Assessment and Recs: # Anemia of chronic disease, likely related ot underlying kidney disease has COIVD19++++++ --> hgb trend 9-->8-->7.3-->7.9-->6.8->9.5-->10->8.3-->7.7-->7.1-->8.9->8.8->7.7 -->8.1 ->7.9-->7.7 -->8.2-->8.1 -->7.9-->8.5 -->9->9.2-->9.5-->10.7 -->9.8--> 10.2-->11.8 -->11.9-->8.8 ->9.4->9-->8.3 -->8.5-->9.4->9.8-->9-->8.3-->11.6--> 10.8-->10.5-->10->9.7->9.9->8.7->8.4->8-->8.5 --> transfuse as needed, hgb goal >7 --> no evidence of hemolysis --> peripheral smear has been reviewed --> epogen started 3 x a week ==>> transfuse 06/08, 06/15 # Leukocytosis likely related to suspected COVID-19 virus infection --> completed plaquenil --> trend smear as needed --> wbc trend: 4-->11-->14.5-->21-->26-->21->24--.28-->23-->19-->16.2-->21--> 11.2 -->12.5-->12.3-->12.4-->18.5-->18.5-->17->13-->18.2-->22.2-->25-->17.4-->17 -->14.2-->14-->16-->15.5-->9->17->11.5-->12->12-->18->15->9.8-->4.3 --> pulm is aware --> on abx cefepime/vanc->zosyn/vanc-->dom/vanc-->dom-->levaquin/cefepime--> vanc/zosyn --> vanc --> pressors as needed --> 06/27 covid 19++ --> pressors as needed in icu --> c diff negative 08/08 --> blood cx++ # Thrombocytopenia/Lymphopenia --> likely related to covid19 --> plt 129k-->186k-->251-->285-->384 -->430-->539-->515-->447-->451-->404-->544 -->244 -->393 --> hep panel pending --> hiv negative # Respiratory failure with covid19+ --> s/p vent/trach --> weaning # Possible Pneumonia --> abx completed --> 07/13 cxr: Improved right lung infiltrates. # Cardiomegaly # Transaminitis with Elevated AST # COPD # Chronic Kidney Disease --> per renal hd --> s/p right femoral cath 07/02 # Hypertension # peg # Dvt ppx lovenox Appreciate consultation and ernesto Candelario Subjective Allergies: Coded Allergies: No Known Allergies (Unverified , 05/28/19) Subjective 06/01 nv, extremely agitated, not allowing labs draws, no night sweats, cbc ordered 06/02 confused, restraints, on abx and plaquenil, hgb 7.9, nrb 15 L 06/03 is with nonrebreather, but not compliant, remains confused 06/05 no bleeding, labs noted, no major bleeding, otherwise comfortable 06/06 labs reviewed, no bleeding, meds noted, no night sweats, on levo and nonrebreather 06/07 labs noted, no bleeding, meds reviewed, no bleeding, wbc higher 06/08 to get 2 units prbc, no night sweats, meds reviewed 06/09 is on cefepime and vanc, labs noted, dw Rn, no bleeding 06/10 no major changes, labs reviewed, wbc 28k, on abx, cefepime 06/12 remains in icu, labs noted, no night sweats or bleeding 06/13 sluggish pupils, remains agitated, per psych, no bleding, on vent, wbc sitll high 06/14 still confused, remains on vent, with ng, running nepro, on pressors 06/15 icu, febrile, non verbal, hgb 7.1, blood pending, completed plaq 06/16 remains in the icu, nonverbal, plan for hd tomorrow, ernesto rn 06/17 in icu, on pressor, nonverbal, on abx, no bleeding 06/19 no bleeding, nonverbal in icu, hgb is 7.7 06/20 on zosyn, tube feeds, vent, labs noted, in icu, nv 06/21 gettng hd as per renal, in icu, nv, no bleeding, tfs 06/22 icu, cxr with slight improvement, cooling blanket, weaning today 06/23 wewaning, in icu, on vent, abx, and pressors as needed, labs noted 06/24 failed weaning, off abx, completed plaquenil, hgb 8.1 06/26 icu, weaning for this am, afebrile, hgb 8 06/27 in icu, remains comotose, weaning started on peep, no night sweats 06/28 weaning today, off abx, restraints, no distress, h/h stable 06/29 covid 19+, failed weaning, no blood transfusion needed 06/30 icu, on vent, labs reviewed, no distress 07/01 in icu, may need trach, remains on hd per renal, labs noted 07/02 s/p right fem cath, failed wean, no new orders, h/h stable 07/03 is somewhat more responsive, on abx, no bleeding, weaning and HD today 07/04 hd as per renal, weaning off vent, no bleeding today 07/05 obtunded, no bleding overnight, with hd for tomorrow noted, vanc 07/08 no events, remains with trach/vent, ernesto Rn, no bleeding, cbc is noted 07/09 no overnight events, peg for friday pending consent 07/10 off pressors, vent, restraints, labs reviewed 07/11 no acute events is on pressors, intubated, agitated still 07/12 is resting comfortably, no bleeding, emds reviewed and noted 07/13 icu, no events, trach, cxr reviewed, 07/14 is onv ent, tachypneic and tachycardic, labs noted 07/15 remains confused, intubated, dw Rn, no bleeding 07/17 icu, cxr improving infiltrates, levo gtt, airborne/contact isolation 07/18 is on broad spectrum abx, is on levaquin and cefepime, wbc 16 agitated 07/19 icu, levo gtt, cxr unchanged, tachy, hd thursday 07/20 sedated, safety restraints, labs reviewed 07/21 hd was done yesterday, lower pressor requirements, wbc is worse, on abx 07/22 icu, meds and labs reviewed, vent, no distress 07/24 on vent, in icu, labs noted, remains agitated, and confused 07/25 remains obtunded, on vent, on pressor, hgb 9, wbc elev 07/26 icu, levo gtt, vent, iv abx, nonverbal 07/27 failed weaning, labs reviewed, repeat covid swab pending 07/28 labs are noted, no bleeding, on vent/trach gtube feeds dw rn 07/29 iuc, restraints, no new changes, vent 07/31 is asleep, comfortable, no events, labs reviewed, restraints+ 08/01 no events, agitated, no bleeding, meds noted, on gtube feeds 08/02 remains on vent, no bleeding, wbc higher 19, hgb 9, on abx 08/03 labs noted, on vent, no bleeding, wbc 17, hgb better 08/04 labs reviewed, no bleeding, does not require prbc, on vent 08/05 more alert, is on trach, vent, no major events, no bleeding, peg+ 08/07 no bleeding no chills, no night sweats, is on vent/trach 08/08 recent covid swab negative, restraints, cxr unchanged 08/09 c diff negative, zosyn, hd today, gtf 08/10 no overnight events, labs reviewed, afebrile 08/11 labs reviewed, meds noted, no fc, no major changes, wbc 12 7/ abx changed to flucon, on abx, wbc 12 7/ bp on low end, blood cx++, vanc, vent 08/15 no bleeding, no night sweats, on abx, trach/vent 08/16 is able to nod head in response to question, labs noted, on vent/trach 08/17 labs reviewed, hgb 9.8, no bleeding, on abx, meds noted 08/18 labs noted, no bleeding, hgb stable, 9.9, mildly alert 08/19 labs are noted, no bleeding, meds reviewed, line holiday per surg 08/21 labs noted, meds reviewed, no bleeding hgb 8.7 08/22 labs reviewed, no bleeding, meds noted, no night sweats hgb 8.4 08/23 labs ar enoted, no bleeidng, hgb 8, no hemolysis, with rectal tube 08/24 labs reviewed, no bleeding, no night sweats, hgb 8 08/25 no events, hiv negative, hep panel pending, on vanc Objective Objective Current Medications Medications (Trade) Dose Ordered Sig/Anthony Route PRN Reason Start Time Stop Time Status Last Admin Dose Admin Acetaminophen (Tylenol) 650 mg Q4H PRN NG For Pain 08/04/19 21:38 09/03/19 21:37 08/23/19 12:26 Acetaminophen (Tylenol) 650 mg Q4H PRN NG Temp >100.5 08/15/19 13:30 09/08/19 08:29 08/23/19 23:24 Chlorhexidine Gluconate (Michelle-Hex 2%) 1 applic DAILY@1999 TOPIC 08/21/19 20:00 11/19/19 19:59 08/25/19 20:11 Dextrose (Dextrose 50%) 25 ml Q30M PRN IV Hypoglycemia 08/04/19 22:00 09/18/19 19:29 Dextrose (Dextrose 50%) 50 ml Q30M PRN IV Hypoglycemia 08/04/19 22:00 09/18/19 19:29 Diphenoxylate HCl/ Atropine (Lomotil) 2.5 mg BID NG 08/24/19 18:00 09/17/19 17:59 08/26/19 18:08 Enoxaparin Sodium (Lovenox) 30 mg DAILY SUBQ 08/05/19 09:00 09/25/19 08:59 08/26/19 09:57 Epoetin Aftab (Epoetin Aftab(ESRD on dialysis)) 10,000 unit FRI-FRI-FRI SUBQ 08/11/19 21:00 11/09/19 20:59 08/25/19 20:12 Fluconazole (Diflucan) 200 mg DAILY NG 08/13/19 10:24 08/30/19 10:23 08/26/19 09:55 Haloperidol Lactate 5 mg/ Dextrose 56 ml @ 224 mls/hr Q6H PRN IVPB Agitation 08/04/19 21:38 09/18/19 21:37 08/19/19 02:26 Hydralazine HCl (Apresoline) 10 mg Q4H PRN IV Blood pressure over 160 systol 08/04/19 21:39 11/02/19 21:38 Insulin Aspart (NovoLOG) EVERY 6 HOURS SUBQ 08/05/19 00:00 09/19/19 00:00 08/26/19 12:37 Loperamide HCl (Imodium) 2 mg Q6H NG 08/18/19 14:00 09/15/19 13:59 08/26/19 15:03 Midodrine (Pro-Amatine) 10 mg THREE TIMES A DAY NG 08/15/19 18:00 11/13/19 17:59 08/26/19 18:09 Vancomycin HCl ([facility] pharmacy to dose) 1 ea DAILY PRN MISC Per rx protocol 08/15/19 08:45 09/14/19 08:44 Last 24 Hour Vital Signs Date Time Temp Pulse Resp B/P (MAP) Pulse Ox O2 Delivery O2 Flow Rate FiO2 08/26/19 18:40 70 31 28 08/26/19 16:59 100 08/26/19 16:00 75 08/26/19 16:00 Mechanical Ventilator Mechanical Ventilator 08/26/19 16:00 30 08/26/19 16:00 97.7 61 18 135/72 (93) 100 08/26/19 15:22 69 28 28 08/26/19 12:00 Mechanical Ventilator Mechanical Ventilator 08/26/19 12:00 70 08/26/19 12:00 30 08/26/19 12:00 97.5 71 20 128/64 (85) 100 08/26/19 10:55 78 33 28 08/26/19 08:00 97.2 76 23 108/63 (78) 99 08/26/19 08:00 30 08/26/19 08:00 Mechanical Ventilator Mechanical Ventilator 08/26/19 08:00 71 34 28 08/26/19 08:00 76 08/26/19 04:00 Mechanical Ventilator Mechanical Ventilator 08/26/19 04:00 30 08/26/19 04:00 73 08/26/19 04:00 98.4 72 26 144/76 (98) 100 08/26/19 03:13 73 26 28 08/26/19 00:00 98.4 78 34 135/77 (96) 100 08/26/19 00:00 Mechanical Ventilator Mechanical Ventilator 08/26/19 00:00 30 08/26/19 00:00 74 08/25/19 23:10 68 34 28 08/25/19 21:20 71 31 28 08/25/19 20:00 99.5 70 32 137/72 (93) 98 08/25/19 20:00 77 08/25/19 20:00 Mechanical Ventilator Mechanical Ventilator 08/25/19 20:00 30 08/25/19 18:56 76 33 28 08/25/19 16:00 Mechanical Ventilator Mechanical Ventilator 08/25/19 16:00 97.9 89 15 134/71 (92) 95 08/25/19 16:00 82 08/25/19 15:13 100 40 25 28 08/25/19 12:00 Mechanical Ventilator Mechanical Ventilator 08/25/19 12:00 108 08/25/19 12:00 99.4 106 17 126/78 (94) 95 08/25/19 10:50 100 28 25 28 08/25/19 10:47 100 08/25/19 08:00 99.3 80 19 128/73 (91) 98 08/25/19 08:00 84 08/25/19 08:00 Mechanical Ventilator Mechanical Ventilator 08/25/19 07:16 81 31 25 28 08/25/19 04:00 97.8 72 22 136/76 (96) 99 08/25/19 04:00 Mechanical Ventilator Mechanical Ventilator 08/25/19 03:36 80 08/25/19 03:27 79 31 28 08/25/19 00:00 Mechanical Ventilator Mechanical Ventilator 08/24/19 23:52 97.9 80 22 132/77 (95) 100 08/24/19 23:37 71 7/14/20 23:15 78 28 28 08/24/19 20:00 98.1 72 22 130/76 (94) 98 08/24/19 20:00 Mechanical Ventilator Mechanical Ventilator 08/24/19 19:39 81 08/24/19 19:30 75 29 28 Intake and Output 08/25/19 08/26/19 19:00 07:00 Intake Total 630 ml 540 ml Output Total 0 ml Balance 630 ml 540 ml Free Water 150 ml 100 ml Tube Feeding 480 ml 440 ml Hemodialysis UF 0 ml # Bowel Movements 6 3 Labs Test 08/23/19 23:17 08/24/19 04:00 08/24/19 04:53 08/24/19 06:30 White Blood Count 9.8 K/UL (4.8-10.8) Red Blood Count 2.87 M/UL (4.70-6.10) Hemoglobin 8.0 G/DL (14.2-18.0) Hematocrit 26.3 % (42.0-52.0) Mean Corpuscular Volume 92 FL (80-99) Mean Corpuscular Hemoglobin 27.9 PG (27.0-31.0) Mean Corpuscular Hemoglobin Concent 30.4 G/DL (32.0-36.0) Red Cell Distribution Width 17.9 % (11.6-14.8) Platelet Count 392 K/UL (150-450) Mean Platelet Volume 6.5 FL (6.5-10.1) Neutrophils (%) (Auto) 76.0 % (45.0-75.0) Lymphocytes (%) (Auto) 10.8 % (20.0-45.0) Monocytes (%) (Auto) 9.6 % (1.0-10.0) Eosinophils (%) (Auto) 2.8 % (0.0-3.0) Basophils (%) (Auto) 0.9 % (0.0-2.0) Sodium Level 141 MMOL/L (136-145) Potassium Level 3.1 MMOL/L (3.5-5.1) Chloride Level 100 MMOL/L (98-107) Carbon Dioxide Level 25 MMOL/L (21-32) Anion Gap 16 mmol/L (5-15) Blood Urea Nitrogen 67 mg/dL (7-18) Creatinine 7.3 MG/DL (0.55-1.30) Estimat Glomerular Filtration Rate 7.5 mL/min (>60) Glucose Level 203 MG/DL (74-106) Calcium Level 9.1 MG/DL (8.5-10.1) Phosphorus Level 4.3 MG/DL (2.5-4.9) Magnesium Level 1.9 MG/DL (1.8-2.4) Total Bilirubin 0.4 MG/DL (0.2-1.0) Aspartate Amino Transf (AST/SGOT) 18 U/L (15-37) Alanine Aminotransferase (ALT/SGPT) 8 U/L (12-78) Alkaline Phosphatase 111 U/L (46-116) C-Reactive Protein, Quantitative 35.3 mg/dL (0.00-0.90) Pro-B-Type Natriuretic Peptide 00296 pg/mL (0-125) Total Protein 7.9 G/DL (6.4-8.2) Albumin 2.6 G/DL (3.4-5.0) Globulin 5.3 g/dL Albumin/Globulin Ratio 0.5 (1.0-2.7) POC Whole Blood Glucose 185 MG/DL (74-106) Test 08/24/19 09:48 08/24/19 12:44 08/24/19 17:00 08/24/19 22:21 Arterial Blood pH 7.397 (7.350-7.450) Arterial Blood Partial Pressure CO2 37.5 mmHg (35.0-45.0) Arterial Blood Partial Pressure O2 114.0 mmHg (75.0-100.0) Arterial Blood HCO3 22.6 mmol/L (22.0-26.0) Arterial Blood Oxygen Saturation 97.9 % (95-100) Arterial Blood Base Excess -2.0 (-2-2) Kosta Test Positive POC Whole Blood Glucose 207 MG/DL (74-106) 123 MG/DL (74-106) Test 08/25/19 03:25 08/25/19 04:43 08/25/19 13:15 08/25/19 18:39 Random Vancomycin Level 16.7 ug/mL POC Whole Blood Glucose 157 MG/DL (74-106) Test 08/26/19 00:24 08/26/19 05:40 08/26/19 08:45 08/26/19 12:26 White Blood Count 4.3 K/UL (4.8-10.8) Red Blood Count 3.18 M/UL (4.70-6.10) Hemoglobin 8.5 G/DL (14.2-18.0) Hematocrit 28.9 % (42.0-52.0) Mean Corpuscular Volume 91 FL (80-99) Mean Corpuscular Hemoglobin 26.6 PG (27.0-31.0) Mean Corpuscular Hemoglobin Concent 29.3 G/DL (32.0-36.0) Red Cell Distribution Width 17.8 % (11.6-14.8) Platelet Count 418 K/UL (150-450) Mean Platelet Volume 6.3 FL (6.5-10.1) Neutrophils (%) (Auto) % (45.0-75.0) Lymphocytes (%) (Auto) % (20.0-45.0) Monocytes (%) (Auto) % (1.0-10.0) Eosinophils (%) (Auto) % (0.0-3.0) Basophils (%) (Auto) % (0.0-2.0) Differential Total Cells Counted 100 Neutrophils % (Manual) 48 % (45-75) Lymphocytes % (Manual) 26 % (20-45) Monocytes % (Manual) 20 % (1-10) Eosinophils % (Manual) 5 % (0-3) Basophils % (Manual) 0 % (0-2) Band Neutrophils 1 % (0-8) Platelet Estimate Adequate Platelet Morphology Normal Hypochromasia 1+ Anisocytosis 1+ Sodium Level 141 MMOL/L (136-145) Potassium Level 3.1 MMOL/L (3.5-5.1) Chloride Level 101 MMOL/L (98-107) Carbon Dioxide Level 28 MMOL/L (21-32) Anion Gap 12 mmol/L (5-15) Blood Urea Nitrogen 42 mg/dL (7-18) Creatinine 5.7 MG/DL (0.55-1.30) Estimat Glomerular Filtration Rate 10.0 mL/min (>60) Glucose Level 158 MG/DL (74-106) Calcium Level 9.1 MG/DL (8.5-10.1) Phosphorus Level 2.6 MG/DL (2.5-4.9) Total Bilirubin 0.3 MG/DL (0.2-1.0) Aspartate Amino Transf (AST/SGOT) 19 U/L (15-37) Alanine Aminotransferase (ALT/SGPT) 12 U/L (12-78) Alkaline Phosphatase 98 U/L (46-116) C-Reactive Protein, Quantitative 15.7 mg/dL (0.00-0.90) Pro-B-Type Natriuretic Peptide > 96483 pg/mL (0-125) Total Protein 8.0 G/DL (6.4-8.2) Albumin 2.5 G/DL (3.4-5.0) Globulin 5.5 g/dL Albumin/Globulin Ratio 0.5 (1.0-2.7) Test 08/26/19 18:10 Height (Feet): 6 Height (Inches): 1.00 Weight (Pounds): 168 Objective General: nv, confused, sedated Heent: bilateral eye normal inspection, bilateral eye PERRL ++Ng Respiratory: normal breath sounds, no respiratory distress, intubated/vent +++ trach+++ Cardiovascular: regular rate, rhythm, no edema Gastrointestinal: normal inspection, soft, non-distended, peg+ Rectal: deferred Musculoskeletal: normal range of motion, non-tender, R fem cath++ Neurologic: alert, motor strength/tone normal, sensory intact, responsive, speech normal Skin: Decubitus/Ulcer - See RN skin exam. : jamaal+ Greg Cabral MD Aug 26, 2019 19:12
[2019-08-26 20:00] VITALS: BP 142/78
[2019-08-26] MEDS: Dyna-Hex 2% Top Sol 2oz TOPIC SCH (20:21)
--- NOTE | 2019-08-26 20:54 | General Progress Note ---
Assessment/Plan Problem List: (1) HTN (hypertension) ICD Codes: I10 - Essential (primary) hypertension SNOMED: 67755670 (2) CASSANDRA (acute kidney injury) ICD Codes: N17.9 - Acute kidney failure, unspecified SNOMED: 3737203, 97191894 (3) Anemia in chronic kidney disease (CKD) ICD Codes: N18.9 - Chronic kidney disease, unspecified; D63.1 - Anemia in chronic kidney disease SNOMED: 601081402 (4) Renal failure ICD Codes: N19 - Unspecified kidney failure SNOMED: 92922017 (5) Respiratory failure requiring intubation ICD Codes: J96.90 - Respiratory failure, unspecified, unspecified whether with hypoxia or hypercapnia; A41.89 - Other specified sepsis SNOMED: 426897171, 441670950 (6) Pneumonia due to COVID-19 virus ICD Codes: U07.1 - COVID-19; J12.89 - Other viral pneumonia SNOMED: 400251931, 019232458 (7) Sepsis due to severe acute respiratory syndrome coronavirus 2 (SARS-CoV-2) ICD Codes: U07.1 - COVID-19; A41.89 - Other specified sepsis SNOMED: 299957193, 945296541 Status: progressing, unchanged Assessment/Plan: check h/h check lytes afebrile h/o covid .positive blood cx needs placement reviewed chart and labs Subjective ROS Limited/Unobtainable: Yes Allergies: Coded Allergies: No Known Allergies (Unverified , 05/28/19) Objective Last 24 Hour Vital Signs Date Time Temp Pulse Resp B/P (MAP) Pulse Ox O2 Delivery O2 Flow Rate FiO2 08/26/19 20:00 98.2 74 16 142/78 (99) 99 08/26/19 20:00 30 08/26/19 18:40 70 31 28 08/26/19 16:59 100 08/26/19 16:00 75 08/26/19 16:00 Mechanical Ventilator Mechanical Ventilator 08/26/19 16:00 30 08/26/19 16:00 97.7 61 18 135/72 (93) 100 08/26/19 15:22 69 28 28 08/26/19 12:00 Mechanical Ventilator Mechanical Ventilator 08/26/19 12:00 70 08/26/19 12:00 30 08/26/19 12:00 97.5 71 20 128/64 (85) 100 08/26/19 10:55 78 33 28 08/26/19 08:00 97.2 76 23 108/63 (78) 99 08/26/19 08:00 30 08/26/19 08:00 Mechanical Ventilator Mechanical Ventilator 08/26/19 08:00 71 34 28 08/26/19 08:00 76 08/26/19 04:00 Mechanical Ventilator Mechanical Ventilator 08/26/19 04:00 30 08/26/19 04:00 73 08/26/19 04:00 98.4 72 26 144/76 (98) 100 08/26/19 03:13 73 26 28 08/26/19 00:00 98.4 78 34 135/77 (96) 100 08/26/19 00:00 Mechanical Ventilator Mechanical Ventilator 08/26/19 00:00 30 08/26/19 00:00 74 08/25/19 23:10 68 34 28 08/25/19 21:20 71 31 28 Intake and Output 08/25/19 08/26/19 19:00 07:00 Intake Total 630 ml 540 ml Output Total 0 ml Balance 630 ml 540 ml Free Water 150 ml 100 ml Tube Feeding 480 ml 440 ml Hemodialysis UF 0 ml # Bowel Movements 6 3 Laboratory Tests 08/26/19 00:24: POC Whole Blood Glucose [Pending] 08/26/19 05:40: POC Whole Blood Glucose [Pending] 08/26/19 08:45: White Blood Count 4.3L, Red Blood Count 3.18L, Hemoglobin 8.5L, Hematocrit 28.9L , Mean Corpuscular Volume 91, Mean Corpuscular Hemoglobin 26.6L, Mean Corpuscular Hemoglobin Concent 29.3L, Red Cell Distribution Width 17.8H, Platelet Count 418, Mean Platelet Volume 6.3L, Neutrophils (%) (Auto) , Lymphocytes (%) (Auto) , Monocytes (%) (Auto) , Eosinophils (%) (Auto) , Basophils (%) (Auto) , Differential Total Cells Counted 100, Neutrophils % ( Manual) 48, Lymphocytes % (Manual) 26, Monocytes % (Manual) 20H, Eosinophils % ( Manual) 5H, Basophils % (Manual) 0, Band Neutrophils 1, Platelet Estimate Adequate, Platelet Morphology Normal, Hypochromasia 1+, Anisocytosis 1+, Sodium Level 141, Potassium Level 3.1L, Chloride Level 101, Carbon Dioxide Level 28, Anion Gap 12, Blood Urea Nitrogen 42H, Creatinine 5.7H, Estimat Glomerular Filtration Rate 10.0, Glucose Level 158H, Calcium Level 9.1, Phosphorus Level 2.6, Total Bilirubin 0.3, Aspartate Amino Transf (AST/SGOT) 19, Alanine Aminotransferase (ALT/SGPT) 12, Alkaline Phosphatase 98, C-Reactive Protein, Quantitative 15.7H, Pro-B-Type Natriuretic Peptide > 79052O, Total Protein 8.0, Albumin 2.5L, Globulin 5.5, Albumin/Globulin Ratio 0.5L, Hepatitis A IgM Antibody [Pending], Hepatitis B Surface Antigen [Pending], Hepatitis B Core IgM Antibody [Pending], Hepatitis C Antibody [Pending] 08/26/19 12:26: POC Whole Blood Glucose [Pending] 08/26/19 18:10: POC Whole Blood Glucose [Pending] Height (Feet): 6 Height (Inches): 1.00 Weight (Pounds): 168 Karishma Mulligan MD Aug 26, 2019 20:54
--- NOTE | 2019-08-26 23:58 | Pulmonolgy Critical Care Note ---
Critical Care - Asmt/Plan Assessment/Plan: Pulmonary Progress Note HPI: Patient is a 68 year old man, [facility] resident, admitted c/o shortness of breath, cough, noted to have Covid 19 Pneumonia, Respiratory Failure Remains on Ventilator, CXR stable, mild interstitial prominence, 08/22 Anemia CKD on HD, will need eventual placement, second consecutive repeat COVID19 test negative Preserved EF FIO2 28%, P5, adequate O2 sats, remains on ACVC, tolerating CPAP PS 8 day, adequate ABG, s/p Tracheostomy previously, sp PEG, sp new HD line insertion ID following MRSA sputum Sp Trach change 08/20 Reviewed earlier Past Medical History: COPD, CKD, Hypertension, Anemia Allergies: No Known Allergies Physical Exam Vital Signs Noted Stable on ventilator Chronically ill appearing HEENT: Trach CDI Chest: CTAB Hreart: HS1, HS2, RRR Abdomen: SNTND, Gtube Extremities: Wasted, no edema 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 Impression: COVID-19 virus infection - now Covid negative Pneumonia Respiratory failure on ventilator, wean as tolerated CKD - on HD Previous NSTEMI Hypotension resolved Cardiomegaly Fungemia MRSA sputum COPD Chronic Kidney Disease - HD H/o Hypertension Anemia Plan: trach care as is Antibiotics per ID HD per renal monitor vitals AC - wean as tolerated, PS 8 AM PT eval, up in chair as tolerated anxiolytics if needed 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 PRN Monitor lab data nutrition feeds Hemodialysis per Renal impression, plan, and exam edited and reviewed in detail care discussed with RN Laboratory Tests Noted: CXR: No acute changes Subjective ROS Limited/Unobtainable: Yes Allergies: Coded Allergies: No Known Allergies (Unverified , 05/28/19) Critical Care - Objective Last 24 Hour Vital Signs Date Time Temp Pulse Resp B/P (MAP) Pulse Ox O2 Delivery O2 Flow Rate FiO2 08/26/19 22:59 67 26 28 08/26/19 21:42 65 30 28 08/26/19 20:00 98.2 74 16 142/78 (99) 99 08/26/19 20:00 30 08/26/19 19:34 70 08/26/19 18:40 70 31 28 08/26/19 16:59 100 08/26/19 16:00 75 08/26/19 16:00 Mechanical Ventilator Mechanical Ventilator 08/26/19 16:00 30 08/26/19 16:00 97.7 61 18 135/72 (93) 100 08/26/19 15:22 69 28 28 08/26/19 12:00 Mechanical Ventilator Mechanical Ventilator 08/26/19 12:00 70 08/26/19 12:00 30 08/26/19 12:00 97.5 71 20 128/64 (85) 100 08/26/19 10:55 78 33 28 08/26/19 08:00 97.2 76 23 108/63 (78) 99 08/26/19 08:00 30 08/26/19 08:00 Mechanical Ventilator Mechanical Ventilator 08/26/19 08:00 71 34 28 08/26/19 08:00 76 08/26/19 04:00 Mechanical Ventilator Mechanical Ventilator 08/26/19 04:00 30 08/26/19 04:00 73 08/26/19 04:00 98.4 72 26 144/76 (98) 100 08/26/19 03:13 73 26 28 08/26/19 00:00 98.4 78 34 135/77 (96) 100 08/26/19 00:00 Mechanical Ventilator Mechanical Ventilator 08/26/19 00:00 30 08/26/19 00:00 74 Accucheck: 135 Critical Care - Subjective ROS Limited/Unobtainable: Yes Condition: stable IV Access: central FI02: 28 Vent Support Breath Rate: 26 Vent Support Mode: AC Vent Tidal Volume: 500 Sputum Amount: Moderate PEEP: 5.0 PIP: 22 Tube Feeding Amount: 40 I&O: Intake and Output 08/25/19 08/26/19 19:00 07:00 Intake Total 630 ml 540 ml Output Total 0 ml Balance 630 ml 540 ml Free Water 150 ml 100 ml Tube Feeding 480 ml 440 ml Hemodialysis UF 0 ml # Bowel Movements 6 3 ET-Tube: 7.5 ET Position: 24 Arturo Mckeon MD Aug 26, 2019 23:57
[2019-08-27] VITALS: BP 153/91
[2019-08-27 04:00] VITALS: BP 136/74
[2019-08-27 05:23] LABS: HEMATOCRIT 26.9 % (42.0-52.0); MEAN CORPUSCULAR VOLUME 91 FL (80-99); PLATELET COUNT 441 K/UL (150-450); RED BLOOD COUNT 2.97 M/UL (4.70-6.10); RED CELL DISTRIBUTION WIDTH 17.6 % (11.6-14.8)
[2019-08-27] MEDS: NovoLOG Insulin Flexpen SUBQ SCH ×5 (05:40→23:25)
[2019-08-27 06:03] LABS: ALANINE AMINOTRANSFERASE 9 U/L (12-78); ALBUMIN 2.5 G/DL (3.4-5.0); ALBUMIN/GLOBULIN RATIO 0.5 (1.0-2.7); ALKALINE PHOSPHATASE 96 U/L (46-116); ANION GAP 14 mmol/L (5-15); ASPARTATE AMINO TRANSFERASE 15 U/L (15-37); BILIRUBIN,TOTAL 0.3 MG/DL (0.2-1.0); BLOOD UREA NITROGEN 50 mg/dL (7-18); CALCIUM 9.2 MG/DL (8.5-10.1); CARBON DIOXIDE 25 MMOL/L (21-32); CHLORIDE 101 MMOL/L (98-107); CREATININE 6.7 MG/DL (0.55-1.30); POTASSIUM 3.7 MMOL/L (3.5-5.1); SODIUM 140 MMOL/L (136-145)
[2019-08-27 08:00] VITALS: BP 145/80
[2019-08-27] MEDS: Fluconazole 100mg tab NG SCH (08:31)
[2019-08-27] MEDS: Lomotil 2.5mg tab NG SCH ×2 (08:31→18:11)
[2019-08-27] MEDS: Midodrine 10mg tab NG SCH ×3 (08:32→18:00)
[2019-08-27] MEDS: Enoxaparin 30mg Inj SUBQ SCH (08:33)
--- NOTE | 2019-08-27 09:02 | Hematology/Onc Progress Note ---
Assessment/Plan Assessment/Plan Assessment and Recs: # Anemia of chronic disease, likely related ot underlying kidney disease has COIVD19++++++ --> hgb trend 9-->8-->7.3-->7.9-->6.8->9.5-->10->8.3-->7.7-->7.1-->8.9->8.8->7.7 -->8.1 ->7.9-->7.7 -->8.2-->8.1 -->7.9-->8.5 -->9->9.2-->9.5-->10.7 -->9.8--> 10.2-->11.8 -->11.9-->8.8 ->9.4->9-->8.3 -->8.5-->9.4->9.8-->9-->8.3-->11.6--> 10.8-->10.5-->10->9.7->9.9->8.7->8.4->8-->8.5-->8 --> transfuse as needed, hgb goal >7 --> no evidence of hemolysis --> peripheral smear has been reviewed --> epogen started 3 x a week ==>> transfuse 06/08, 06/15 # Leukocytosis likely related to suspected COVID-19 virus infection --> completed plaquenil --> trend smear as needed --> wbc trend: 4-->11-->14.5-->21-->26-->21->24--.28-->23-->19-->16.2-->21--> 11.2 -->12.5-->12.3-->12.4-->18.5-->18.5-->17->13-->18.2-->22.2-->25-->17.4-->17 -->14.2-->14-->16-->15.5-->9->17->11.5-->12->12-->18->15->9.8-->4.3 --> pulm is aware --> on abx cefepime/vanc->zosyn/vanc-->dom/vanc-->dom-->levaquin/cefepime--> vanc/zosyn --> vanc --> pressors as needed --> 06/27 covid 19++ --> pressors as needed in icu --> c diff negative 08/08 --> blood cx++ # Thrombocytopenia/Lymphopenia --> likely related to covid19 --> plt 129k-->186k-->251-->285-->384 -->430-->539-->515-->447-->451-->404-->544 -->244 -->393 --> hep panel pending --> hiv negative # Respiratory failure with covid19+ --> s/p vent/trach --> weaning # Possible Pneumonia --> abx completed --> 07/13 cxr: Improved right lung infiltrates. # Cardiomegaly # Transaminitis with Elevated AST # COPD # Chronic Kidney Disease --> per renal hd --> s/p right femoral cath 07/02 # Hypertension # peg # Dvt ppx lovenox Appreciate consultation and dw Rn Subjective Constitutional: Denies: no symptoms, chills, fever, malaise, weakness, other HEENT: Denies: no symptoms, eye pain, blurred vision, tearing, double vision, ear pain, ear discharge, nose pain, nose congestion, throat pain, throat swelling, mouth pain, mouth swelling, other Cardiovascular: Denies: no symptoms, chest pain, edema, irregular heart rate, lightheadedness, palpitations, syncope, other Respiratory: Denies: no symptoms, cough, shortness of breath, SOB with excertion, SOB at rest, sputum, wheezing, other Gastrointestinal/Abdominal: Denies: no symptoms, abdomen distended, abdominal pain, black stools, tarry stools, blood in stool, constipated, diarrhea, difficulty swallowing, nausea, poor appetite, poor fluid intake, rectal bleeding , vomiting, other Genitourinary: Denies: no symptoms, burning, discharge, frequency, flank pain, hematuria, incontinence, pain, urgency, other Neurologic/Psychiatric: Denies: no symptoms, anxiety, depressed, emotional problems, headache, numbness, paresthesia, pre-existing deficit, seizure, tingling, tremors, weakness, other Endocrine: Denies: no symptoms, excessive sweating, flushing, intolerance to cold, intolerance to heat, increased hunger, increased thirst, increased urine, unexplained weight gain, unexplained weight loss, other Allergies: Coded Allergies: No Known Allergies (Unverified , 05/28/19) Subjective 06/01 nv, extremely agitated, not allowing labs draws, no night sweats, cbc ordered 06/02 confused, restraints, on abx and plaquenil, hgb 7.9, nrb 15 L 06/03 is with nonrebreather, but not compliant, remains confused 06/05 no bleeding, labs noted, no major bleeding, otherwise comfortable 06/06 labs reviewed, no bleeding, meds noted, no night sweats, on levo and nonrebreather 06/07 labs noted, no bleeding, meds reviewed, no bleeding, wbc higher 06/08 to get 2 units prbc, no night sweats, meds reviewed 06/09 is on cefepime and vanc, labs noted, ernesto Rn, no bleeding 06/10 no major changes, labs reviewed, wbc 28k, on abx, cefepime 06/12 remains in icu, labs noted, no night sweats or bleeding 06/13 sluggish pupils, remains agitated, per psych, no bleding, on vent, wbc sitll high 06/14 still confused, remains on vent, with ng, running nepro, on pressors 06/15 icu, febrile, non verbal, hgb 7.1, blood pending, completed plaq 06/16 remains in the icu, nonverbal, plan for hd tomorrow, ernesto rn 06/17 in icu, on pressor, nonverbal, on abx, no bleeding 06/19 no bleeding, nonverbal in icu, hgb is 7.7 06/20 on zosyn, tube feeds, vent, labs noted, in icu, nv 06/21 gettng hd as per renal, in icu, nv, no bleeding, tfs 06/22 icu, cxr with slight improvement, cooling blanket, weaning today 06/23 wewaning, in icu, on vent, abx, and pressors as needed, labs noted 06/24 failed weaning, off abx, completed plaquenil, hgb 8.1 06/26 icu, weaning for this am, afebrile, hgb 8 06/27 in icu, remains comotose, weaning started on peep, no night sweats 06/28 weaning today, off abx, restraints, no distress, h/h stable 06/29 covid 19+, failed weaning, no blood transfusion needed 06/30 icu, on vent, labs reviewed, no distress 07/01 in icu, may need trach, remains on hd per renal, labs noted 07/02 s/p right fem cath, failed wean, no new orders, h/h stable 07/03 is somewhat more responsive, on abx, no bleeding, weaning and HD today 07/04 hd as per renal, weaning off vent, no bleeding today 07/05 obtunded, no bleding overnight, with hd for tomorrow noted, vanc 07/08 no events, remains with trach/vent, ernesto Rn, no bleeding, cbc is noted 07/09 no overnight events, peg for friday pending consent 07/10 off pressors, vent, restraints, labs reviewed 07/11 no acute events is on pressors, intubated, agitated still 07/12 is resting comfortably, no bleeding, emds reviewed and noted 07/13 icu, no events, trach, cxr reviewed, 07/14 is onv ent, tachypneic and tachycardic, labs noted 07/15 remains confused, intubated, ernesto Rn, no bleeding 07/17 icu, cxr improving infiltrates, levo gtt, airborne/contact isolation 07/18 is on broad spectrum abx, is on levaquin and cefepime, wbc 16 agitated 07/19 icu, levo gtt, cxr unchanged, tachy, hd thursday 07/20 sedated, safety restraints, labs reviewed 07/21 hd was done yesterday, lower pressor requirements, wbc is worse, on abx 07/22 icu, meds and labs reviewed, vent, no distress 07/24 on vent, in icu, labs noted, remains agitated, and confused 07/25 remains obtunded, on vent, on pressor, hgb 9, wbc elev 07/26 icu, levo gtt, vent, iv abx, nonverbal 07/27 failed weaning, labs reviewed, repeat covid swab pending 07/28 labs are noted, no bleeding, on vent/trach gtube feeds dw rn 07/29 iuc, restraints, no new changes, vent 07/31 is asleep, comfortable, no events, labs reviewed, restraints+ 08/01 no events, agitated, no bleeding, meds noted, on gtube feeds 08/02 remains on vent, no bleeding, wbc higher 19, hgb 9, on abx 08/03 labs noted, on vent, no bleeding, wbc 17, hgb better 08/04 labs reviewed, no bleeding, does not require prbc, on vent 08/05 more alert, is on trach, vent, no major events, no bleeding, peg+ 08/07 no bleeding no chills, no night sweats, is on vent/trach 08/08 recent covid swab negative, restraints, cxr unchanged 08/09 c diff negative, zosyn, hd today, gtf 08/10 no overnight events, labs reviewed, afebrile 08/11 labs reviewed, meds noted, no fc, no major changes, wbc 12 7/3 abx changed to flucon, on abx, wbc 12 7/5 bp on low end, blood cx++, vanc, vent 08/15 no bleeding, no night sweats, on abx, trach/vent 08/16 is able to nod head in response to question, labs noted, on vent/trach 08/17 labs reviewed, hgb 9.8, no bleeding, on abx, meds noted 08/18 labs noted, no bleeding, hgb stable, 9.9, mildly alert 08/19 labs are noted, no bleeding, meds reviewed, line holiday per surg 08/21 labs noted, meds reviewed, no bleeding hgb 8.7 08/22 labs reviewed, no bleeding, meds noted, no night sweats hgb 8.4 08/23 labs ar enoted, no bleeidng, hgb 8, no hemolysis, with rectal tube 08/24 labs reviewed, no bleeding, no night sweats, hgb 8 08/25 no events, hiv negative, hep panel pending, on vanc 08/26 remains confused, is on vent, no bleding, dw rn Objective Objective Current Medications Medications (Trade) Dose Ordered Sig/Anthony Route PRN Reason Start Time Stop Time Status Last Admin Dose Admin Acetaminophen (Tylenol) 650 mg Q4H PRN NG For Pain 08/04/19 21:38 09/03/19 21:37 08/23/19 12:26 Acetaminophen (Tylenol) 650 mg Q4H PRN NG Temp >100.5 08/15/19 13:30 09/08/19 08:29 08/23/19 23:24 Chlorhexidine Gluconate (Michelle-Hex 2%) 1 applic DAILY@2000 TOPIC 08/21/19 20:00 11/19/19 19:59 08/26/19 20:21 Dextrose (Dextrose 50%) 25 ml Q30M PRN IV Hypoglycemia 08/04/19 22:00 09/18/19 19:29 Dextrose (Dextrose 50%) 50 ml Q30M PRN IV Hypoglycemia 08/04/19 22:00 09/18/19 19:29 Diphenoxylate HCl/ Atropine (Lomotil) 2.5 mg BID NG 08/24/19 18:00 09/17/19 17:59 08/27/19 08:31 Enoxaparin Sodium (Lovenox) 30 mg DAILY SUBQ 08/05/19 09:00 09/25/19 08:59 08/27/19 08:33 Epoetin Aftab (Epoetin Aftab(ESRD on dialysis)) 10,000 unit FRI-FRI-FRI SUBQ 08/11/19 21:00 11/09/19 20:59 08/25/19 20:12 Fluconazole (Diflucan) 200 mg DAILY NG 08/13/19 10:24 08/30/19 10:23 08/27/19 08:31 Haloperidol Lactate 5 mg/ Dextrose 56 ml @ 224 mls/hr Q6H PRN IVPB Agitation 08/04/19 21:38 09/18/19 21:37 08/19/19 02:26 Hydralazine HCl (Apresoline) 10 mg Q4H PRN IV Blood pressure over 160 systol 08/04/19 21:39 11/02/19 21:38 Insulin Aspart (NovoLOG) EVERY 6 HOURS SUBQ 08/05/19 00:00 09/19/19 00:00 08/27/19 05:40 Loperamide HCl (Imodium) 2 mg Q6H NG 08/18/19 14:00 09/15/19 13:59 08/27/19 08:31 Midodrine (Pro-Amatine) 10 mg THREE TIMES A DAY NG 08/15/19 18:00 11/13/19 17:59 08/26/19 18:09 Vancomycin HCl (Vanco pharmacy to dose) 1 ea DAILY PRN MISC Per rx protocol 08/15/19 08:45 09/14/19 08:44 Last 24 Hour Vital Signs Date Time Temp Pulse Resp B/P (MAP) Pulse Ox O2 Delivery O2 Flow Rate FiO2 08/27/19 08:39 72 33 28 28 08/27/19 08:00 98.1 73 20 145/80 (101) 100 08/27/19 08:00 28 08/27/19 08:00 Mechanical Ventilator Mechanical Ventilator 08/27/19 07:30 68 27 28 08/27/19 04:00 Mechanical Ventilator Mechanical Ventilator 08/27/19 04:00 64 08/27/19 04:00 98.6 69 20 136/74 (94) 99 08/27/19 04:00 30 08/27/19 02:49 68 26 28 08/27/19 00:00 Mechanical Ventilator Mechanical Ventilator 08/27/19 00:00 98.4 71 18 153/91 (111) 100 08/27/19 00:00 30 08/26/19 23:41 66 08/26/19 22:59 67 26 28 08/26/19 21:42 65 30 28 08/26/19 20:00 98.2 74 16 142/78 (99) 99 08/26/19 20:00 30 08/26/19 20:00 Mechanical Ventilator Mechanical Ventilator 08/26/19 19:34 70 08/26/19 18:40 70 31 28 08/26/19 16:59 100 08/26/19 16:00 75 08/26/19 16:00 Mechanical Ventilator Mechanical Ventilator 08/26/19 16:00 30 08/26/19 16:00 97.7 61 18 135/72 (93) 100 08/26/19 15:22 69 28 28 08/26/19 12:00 Mechanical Ventilator Mechanical Ventilator 08/26/19 12:00 70 08/26/19 12:00 30 08/26/19 12:00 97.5 71 20 128/64 (85) 100 08/26/19 10:55 78 33 28 08/26/19 08:00 97.2 76 23 108/63 (78) 99 08/26/19 08:00 30 08/26/19 08:00 Mechanical Ventilator Mechanical Ventilator 08/26/19 08:00 71 34 28 08/26/19 08:00 76 08/26/19 04:00 Mechanical Ventilator Mechanical Ventilator 08/26/19 04:00 30 08/26/19 04:00 73 08/26/19 04:00 98.4 72 26 144/76 (98) 100 08/26/19 03:13 73 26 28 08/26/19 00:00 98.4 78 34 135/77 (96) 100 08/26/19 00:00 Mechanical Ventilator Mechanical Ventilator 08/26/19 00:00 30 08/26/19 00:00 74 08/25/19 23:10 68 34 28 08/25/19 21:20 71 31 28 08/25/19 20:00 99.5 70 32 137/72 (93) 98 08/25/19 20:00 77 08/25/19 20:00 Mechanical Ventilator Mechanical Ventilator 08/25/19 20:00 30 08/25/19 18:56 76 33 28 08/25/19 16:00 Mechanical Ventilator Mechanical Ventilator 08/25/19 16:00 97.9 89 15 134/71 (92) 95 08/25/19 16:00 82 08/25/19 15:13 100 40 25 28 08/25/19 12:00 Mechanical Ventilator Mechanical Ventilator 08/25/19 12:00 108 08/25/19 12:00 99.4 106 17 126/78 (94) 95 08/25/19 10:50 100 28 25 28 08/25/19 10:47 100 Intake and Output 08/26/19 08/27/19 19:00 07:00 Intake Total 730 ml 530 ml Output Total 0 ml 0 ml Balance 730 ml 530 ml Free Water 150 ml 50 ml IV Total 100 ml Tube Feeding 480 ml 480 ml Output Urine Total 0 ml 0 ml # Bowel Movements 6 3 Labs Test 08/24/19 09:48 08/24/19 12:44 08/24/19 17:00 08/24/19 22:21 Arterial Blood pH 7.397 (7.350-7.450) Arterial Blood Partial Pressure CO2 37.5 mmHg (35.0-45.0) Arterial Blood Partial Pressure O2 114.0 mmHg (75.0-100.0) Arterial Blood HCO3 22.6 mmol/L (22.0-26.0) Arterial Blood Oxygen Saturation 97.9 % (95-100) Arterial Blood Base Excess -2.0 (-2-2) Kosta Test Positive POC Whole Blood Glucose 207 MG/DL (74-106) 123 MG/DL (74-106) Test 08/25/19 03:25 08/25/19 04:43 08/25/19 13:15 08/25/19 18:39 Random Vancomycin Level 16.7 ug/mL POC Whole Blood Glucose 157 MG/DL (74-106) Test 08/26/19 00:24 08/26/19 05:40 08/26/19 08:45 08/26/19 12:26 White Blood Count 4.3 K/UL (4.8-10.8) Red Blood Count 3.18 M/UL (4.70-6.10) Hemoglobin 8.5 G/DL (14.2-18.0) Hematocrit 28.9 % (42.0-52.0) Mean Corpuscular Volume 91 FL (80-99) Mean Corpuscular Hemoglobin 26.6 PG (27.0-31.0) Mean Corpuscular Hemoglobin Concent 29.3 G/DL (32.0-36.0) Red Cell Distribution Width 17.8 % (11.6-14.8) Platelet Count 418 K/UL (150-450) Mean Platelet Volume 6.3 FL (6.5-10.1) Neutrophils (%) (Auto) % (45.0-75.0) Lymphocytes (%) (Auto) % (20.0-45.0) Monocytes (%) (Auto) % (1.0-10.0) Eosinophils (%) (Auto) % (0.0-3.0) Basophils (%) (Auto) % (0.0-2.0) Differential Total Cells Counted 100 Neutrophils % (Manual) 48 % (45-75) Lymphocytes % (Manual) 26 % (20-45) Monocytes % (Manual) 20 % (1-10) Eosinophils % (Manual) 5 % (0-3) Basophils % (Manual) 0 % (0-2) Band Neutrophils 1 % (0-8) Platelet Estimate Adequate Platelet Morphology Normal Hypochromasia 1+ Anisocytosis 1+ Sodium Level 141 MMOL/L (136-145) Potassium Level 3.1 MMOL/L (3.5-5.1) Chloride Level 101 MMOL/L (98-107) Carbon Dioxide Level 28 MMOL/L (21-32) Anion Gap 12 mmol/L (5-15) Blood Urea Nitrogen 42 mg/dL (7-18) Creatinine 5.7 MG/DL (0.55-1.30) Estimat Glomerular Filtration Rate 10.0 mL/min (>60) Glucose Level 158 MG/DL (74-106) Calcium Level 9.1 MG/DL (8.5-10.1) Phosphorus Level 2.6 MG/DL (2.5-4.9) Total Bilirubin 0.3 MG/DL (0.2-1.0) Aspartate Amino Transf (AST/SGOT) 19 U/L (15-37) Alanine Aminotransferase (ALT/SGPT) 12 U/L (12-78) Alkaline Phosphatase 98 U/L (46-116) C-Reactive Protein, Quantitative 15.7 mg/dL (0.00-0.90) Pro-B-Type Natriuretic Peptide > 15802 pg/mL (0-125) Total Protein 8.0 G/DL (6.4-8.2) Albumin 2.5 G/DL (3.4-5.0) Globulin 5.5 g/dL Albumin/Globulin Ratio 0.5 (1.0-2.7) Test 08/26/19 18:10 08/27/19 00:22 08/27/19 03:45 White Blood Count 4.0 K/UL (4.8-10.8) Red Blood Count 2.97 M/UL (4.70-6.10) Hemoglobin 8.0 G/DL (14.2-18.0) Hematocrit 26.9 % (42.0-52.0) Mean Corpuscular Volume 91 FL (80-99) Mean Corpuscular Hemoglobin 26.9 PG (27.0-31.0) Mean Corpuscular Hemoglobin Concent 29.7 G/DL (32.0-36.0) Red Cell Distribution Width 17.6 % (11.6-14.8) Platelet Count 441 K/UL (150-450) Mean Platelet Volume 6.0 FL (6.5-10.1) Neutrophils (%) (Auto) % (45.0-75.0) Lymphocytes (%) (Auto) % (20.0-45.0) Monocytes (%) (Auto) % (1.0-10.0) Eosinophils (%) (Auto) % (0.0-3.0) Basophils (%) (Auto) % (0.0-2.0) Sodium Level 140 MMOL/L (136-145) Potassium Level 3.7 MMOL/L (3.5-5.1) Chloride Level 101 MMOL/L (98-107) Carbon Dioxide Level 25 MMOL/L (21-32) Anion Gap 14 mmol/L (5-15) Blood Urea Nitrogen 50 mg/dL (7-18) Creatinine 6.7 MG/DL (0.55-1.30) Estimat Glomerular Filtration Rate 8.3 mL/min (>60) Glucose Level 163 MG/DL (74-106) Calcium Level 9.2 MG/DL (8.5-10.1) Phosphorus Level 3.4 MG/DL (2.5-4.9) Total Bilirubin 0.3 MG/DL (0.2-1.0) Aspartate Amino Transf (AST/SGOT) 15 U/L (15-37) Alanine Aminotransferase (ALT/SGPT) 9 U/L (12-78) Alkaline Phosphatase 96 U/L (46-116) Total Protein 7.9 G/DL (6.4-8.2) Albumin 2.5 G/DL (3.4-5.0) Globulin 5.4 g/dL Albumin/Globulin Ratio 0.5 (1.0-2.7) Random Vancomycin Level 22.7 ug/mL Height (Feet): 6 Height (Inches): 1.00 Weight (Pounds): 167 Objective General: nv, confused, sedated Heent: bilateral eye normal inspection, bilateral eye PERRL ++Ng Respiratory: normal breath sounds, no respiratory distress, intubated/vent +++ trach+++ Cardiovascular: regular rate, rhythm, no edema Gastrointestinal: normal inspection, soft, non-distended, peg+ Rectal: deferred Musculoskeletal: normal range of motion, non-tender, R fem cath++ Neurologic: alert, motor strength/tone normal, sensory intact, responsive, speech normal Skin: Decubitus/Ulcer - See RN skin exam. : jamaal+ Greg Cabral MD Aug 27, 2019 09:02
--- NOTE | 2019-08-27 10:01 | Infectious Diseases Prog Note ---
Assessment/Plan Assessment/Plan IMPRESSION: 1. COVID19 pneumonia Positive: 05/27, 05/31 , 06/05, 06/09 ,06/17, 06/19, 06/23, 06/27, 07/03, 07/15, 07/29 Negative: 07/26, 08/04, 08/05 2. MRSA carrier. 3. Chronic kidney disease , end-stage renal disease. 4. COPD. 5. Hypertension. 6. Anemia. 7. Hypothyroidism. 8. Hyperlipidemia. 9. Major depression. 10. Leukocytosis resolved 11. Hypotension 12. Hepatitis C 13. Hyperuricemia 14. Diarrhea, C difficile negative 15. septic shock 16.Sepsis blood cultures 08/08 & 08/12 : yeast blood culture: Staph Coagulase negative 17. Pneumonia with Staph aureus ( MRSA) 18. Candidal sepsis 19. Diarrhea, C. difficile negative RECOMMENDATIONS: continue Fluconazole & Vancomycin Subjective ROS Limited/Unobtainable: Yes Neurologic: Reports: confusion, other - on restraint Allergies: Coded Allergies: No Known Allergies (Unverified , 05/28/19) Objective Last 24 Hour Vital Signs Date Time Temp Pulse Resp B/P (MAP) Pulse Ox O2 Delivery O2 Flow Rate FiO2 08/27/19 08:39 72 33 28 28 08/27/19 08:05 78 08/27/19 08:00 98.1 73 20 145/80 (101) 100 08/27/19 08:00 28 08/27/19 08:00 Mechanical Ventilator Mechanical Ventilator 08/27/19 07:30 68 27 28 08/27/19 04:00 Mechanical Ventilator Mechanical Ventilator 08/27/19 04:00 64 08/27/19 04:00 98.6 69 20 136/74 (94) 99 08/27/19 04:00 30 08/27/19 02:49 68 26 28 08/27/19 00:00 Mechanical Ventilator Mechanical Ventilator 08/27/19 00:00 98.4 71 18 153/91 (111) 100 08/27/19 00:00 30 08/26/19 23:41 66 08/26/19 22:59 67 26 28 08/26/19 21:42 65 30 28 08/26/19 20:00 98.2 74 16 142/78 (99) 99 08/26/19 20:00 30 08/26/19 20:00 Mechanical Ventilator Mechanical Ventilator 08/26/19 19:34 70 08/26/19 18:40 70 31 28 08/26/19 16:59 100 08/26/19 16:00 75 08/26/19 16:00 Mechanical Ventilator Mechanical Ventilator 08/26/19 16:00 30 08/26/19 16:00 97.7 61 18 135/72 (93) 100 08/26/19 15:22 69 28 28 08/26/19 12:00 Mechanical Ventilator Mechanical Ventilator 08/26/19 12:00 70 08/26/19 12:00 30 08/26/19 12:00 97.5 71 20 128/64 (85) 100 08/26/19 10:55 78 33 28 Height (Feet): 6 Height (Inches): 1.00 Weight (Pounds): 167 HEENT: mucous membranes moist Respiratory/Chest: no respiratory distress, other - on ventilator Cardiovascular: normal rate Abdomen: soft, non tender, other - GT feeding Extremities: no edema Neurologic/Psychiatric: other - sleeping Laboratory Tests Test 08/26/19 12:26 08/26/19 18:10 08/27/19 00:22 08/27/19 03:45 POC Whole Blood Glucose Pending Pending Pending White Blood Count 4.0 K/UL (4.8-10.8) L Red Blood Count 2.97 M/UL (4.70-6.10) L Hemoglobin 8.0 G/DL (14.2-18.0) L Hematocrit 26.9 % (42.0-52.0) L Mean Corpuscular Volume 91 FL (80-99) Mean Corpuscular Hemoglobin 26.9 PG (27.0-31.0) L Mean Corpuscular Hemoglobin Concent 29.7 G/DL (32.0-36.0) L Red Cell Distribution Width 17.6 % (11.6-14.8) H Platelet Count 441 K/UL (150-450) Mean Platelet Volume 6.0 FL (6.5-10.1) L Neutrophils (%) (Auto) % (45.0-75.0) Lymphocytes (%) (Auto) % (20.0-45.0) Monocytes (%) (Auto) % (1.0-10.0) Eosinophils (%) (Auto) % (0.0-3.0) Basophils (%) (Auto) % (0.0-2.0) Sodium Level 140 MMOL/L (136-145) Potassium Level 3.7 MMOL/L (3.5-5.1) Chloride Level 101 MMOL/L (98-107) Carbon Dioxide Level 25 MMOL/L (21-32) Anion Gap 14 mmol/L (5-15) Blood Urea Nitrogen 50 mg/dL (7-18) H Creatinine 6.7 MG/DL (0.55-1.30) H Estimat Glomerular Filtration Rate 8.3 mL/min (>60) Glucose Level 163 MG/DL (74-106) H Calcium Level 9.2 MG/DL (8.5-10.1) Phosphorus Level 3.4 MG/DL (2.5-4.9) Total Bilirubin 0.3 MG/DL (0.2-1.0) Aspartate Amino Transf (AST/SGOT) 15 U/L (15-37) Alanine Aminotransferase (ALT/SGPT) 9 U/L (12-78) L Alkaline Phosphatase 96 U/L (46-116) Total Protein 7.9 G/DL (6.4-8.2) Albumin 2.5 G/DL (3.4-5.0) L Globulin 5.4 g/dL Albumin/Globulin Ratio 0.5 (1.0-2.7) L Random Vancomycin Level 22.7 ug/mL TB Test (T-Spot) Pending TB Test Nil Control (T-Spot) Pending TB Test Panel A (T-Spot) Pending TB Test Panel B (T-Spot) Pending TB Test Positive Control (T-Spot) Pending Current Medications Medications (Trade) Dose Ordered Sig/Anthony Route PRN Reason Start Time Stop Time Status Last Admin Dose Admin Acetaminophen (Tylenol) 650 mg Q4H PRN NG For Pain 08/04/19 21:38 09/03/19 21:37 08/23/19 12:26 Acetaminophen (Tylenol) 650 mg Q4H PRN NG Temp >100.5 08/15/19 13:30 09/08/19 08:29 08/23/19 23:24 Chlorhexidine Gluconate (Michelle-Hex 2%) 1 applic DAILY@1999 TOPIC 08/21/19 20:00 11/19/19 19:59 08/26/19 20:21 Dextrose (Dextrose 50%) 25 ml Q30M PRN IV Hypoglycemia 08/04/19 22:00 09/18/19 19:29 Dextrose (Dextrose 50%) 50 ml Q30M PRN IV Hypoglycemia 08/04/19 22:00 09/18/19 19:29 Diphenoxylate HCl/ Atropine (Lomotil) 2.5 mg BID NG 08/24/19 18:00 09/17/19 17:59 08/27/19 08:31 Enoxaparin Sodium (Lovenox) 30 mg DAILY SUBQ 08/05/19 09:00 09/25/19 08:59 08/27/19 08:33 Epoetin Aftab (Epoetin Aftab(ESRD on dialysis)) 10,000 unit SUBQ 08/11/19 21:00 11/09/19 20:59 08/25/19 20:12 Fluconazole (Diflucan) 200 mg DAILY NG 08/13/19 10:24 08/30/19 10:23 08/27/19 08:31 Haloperidol Lactate 5 mg/ Dextrose 56 ml @ 224 mls/hr Q6H PRN IVPB Agitation 08/04/19 21:38 09/18/19 21:37 08/19/19 02:26 Hydralazine HCl (Apresoline) 10 mg Q4H PRN IV Blood pressure over 160 systol 08/04/19 21:39 11/02/19 21:38 Insulin Aspart (NovoLOG) EVERY 6 HOURS SUBQ 08/05/19 00:00 09/19/19 00:00 08/27/19 05:40 Loperamide HCl (Imodium) 2 mg Q6H NG 08/18/19 14:00 09/15/19 13:59 08/27/19 08:31 Midodrine (Pro-Amatine) 10 mg THREE TIMES A DAY NG 08/15/19 18:00 11/13/19 17:59 08/26/19 18:09 Vancomycin HCl ([facility] pharmacy to dose) 1 ea DAILY PRN MISC Per rx protocol 08/15/19 08:45 09/14/19 08:44 Tde Leyva MD Aug 27, 2019 10:01
--- NOTE | 2019-08-27 11:11 | Nephrology Progress Note ---
Assessment/Plan Problem List: (1) CASSANDRA (acute kidney injury) (2) Anemia in chronic kidney disease (CKD) (3) HTN (hypertension) (4) COVID-19 Assessment Acute renal failure most likely superimposed on chronic kidney disease Suspected COVID-19 virus infection Possible Pneumonia, lymphopenia, elevated AST Cardiomegaly, possible CHF COPD Hypertension Anemia, most likely related to chronic kidney disease Plan August 26: Dialysis tomorrow August 27. Blood pressure is stable. Aim to ultrafiltrate 1 L. Labs reviewed. Continue per consultants. August 25: Dialyzed yesterday. No UF. Blood pressure is stable. Potassium supplement given. Next hemodialysis planned for August 27. Will order sooner if needed. August 24: No chemistry panel today. Due for dialysis today. Blood pressure stable. August 23: Labs reviewed. Potassium supplement given. Blood pressure is stable. Due for dialysis tomorrow. No ultrafiltration will be done. August 22: Patient was dialyzed yesterday. Pressure low today. 500 cc albumin ordered. Continue to monitor renal parameters. Continue to be on Midodrin. August 21: A temporary catheter for dialysis was put in yesterday, and the patient is due for dialysis today. Continue per consultants. August 20: Patient due for insertion of a temporary dialysis catheter. I ordered dialysis for tomorrow August 21. Continue per consultants. Discussed with Donna " August 19: Permacath discontinued. Due for temporary non-tunneled dialysis access. White blood cells are up to over 14,000. Will dialyze as needed. August 18: Discussed with ID and general surgery. Will remove the permacath which is thought to be infected by IR today. Will monitor renal parameters. Will obtain surveillance cultures tomorrow. Will attempt to put a temporary dialysis access in 48 to 72 hours for dialysis purposes. August 17: Last dialysis August 15, no blood work done today yet. Will reassess if dialysis should be continued. Continue per current management. We will make arrangement to DC permacath and reinsert a new one via general surgery and or interventional radiology August 16: Albumin for low BP. Continue to monitor renal parameters. August 15: Due for dialysis today. Remains borderline low. No ultrafiltration during dialysis. Discussed with SHANIQUE Macdonald. August 14: No labs done today. Patient hypotensive. Normal saline and albumin bolus given. Midodrin started. Will check lab tomorrow. August 13: Lab reviewed. Last dialysis yesterday. Next dialysis August 15. Potassium and phosphorus supplement given. Continue per consultants. August 12: No can panel done today. Due for dialysis today. Continue per consultants. August 11: Patient labs reviewed. Will order dialysis tomorrow. Continue per consultants. August 10: Patient was dialyzed yesterday. Today's labs checked. Stable from renal standpoint to view August 09: Patient scheduled for hemodialysis today. Will check labs tomorrow. August 08: Lab reviewed. Hemodialysis scheduled for tomorrow. August 07: Dialyzed yesterday. No labs drawn today. Will check labs tomorrow. Continue per consultants. August 06: Patient on dialysis now. Discussed with dialysis nurse. Slight catheter malfunction persist. August 05: Labs reviewed. Dialysis scheduled for tomorrow. Continue per consultants. August 04: No labs done today. Dialyzed yesterday. Check labs tomorrow. Continue per consultants. August 03: Lab reviewed. Due for dialysis today. White blood cell 17,500. August 02: Lab reviewed. Low phosphorus replaced. Hemodialysis ordered for tomorrow. White blood cells over 18,000. August 01: Labs reviewed. Potassium replacement ordered. Remains full code on ventilator via trach. Continue per consultants. July 31: Dialyzed yesterday. No can panel today. Remains full code. Remains on ventilator. Being fed through PEG. Continue per consultants. July 30: Patient due for dialysis today. Labs are reviewed. Remains full code. Status post trach to ventilator. Status post PEG. July 29: Patient dialyzed yesterday. Due for dialysis tomorrow. Remains in ICU. Full code. Status post trach tube to ventilator. Status post PEG. July 28: Due for dialysis today. Labs reviewed. Full code. Patient trached and vented. July 27: Last COVID test negative. COVID test will be repeated tomorrow. Will order dialysis tomorrow. Remains full code. Medication list and labs reviewed. July 26: No labs done today. Dialysis done yesterday. Will check lab tomorrow. Dialysis as needed. July 25: Lab reviewed. Dialysis today. Discussed with RN. July 24: Lab reviewed. Do dialysis tomorrow. Discussed with RN. July 23: Lab reviewed. Dialyzed yesterday. Discussed with RN. Remains full code. Next dialysis July 25. Will check labs tomorrow. July 22: Labs reviewed. Due for dialysis today. Discussed with RN. Watch borderline low blood pressure. Discussed with dialysis nurse. July 21: Today's lab reviewed. Will arrange for dialysis tomorrow. Discussed with RN. Aim to keep the blood pressure above 100 systolic. Continue per consultants. July 20: Patient was dialyzed yesterday. Could not ultrafiltrate much due to low blood pressure. Discussed with SHANIQUE Dick today. No labs drawn today. Continue per consultants. July 19: Due for dialysis today. Discussed with SHANIQUE Dick. Continue per consultants. July 18: Dialyzed July 16. Will order dialysis tomorrow July 19. Continues to be on ventilator through trach. No labs done today. Continue per consultants. July 17: Dialyzed yesterday. Stable from renal standpoint of view. Remains full code. Status post trach on vent. Status post PEG. Continue per consultants. July 16: Dialysis today. Will resume Midodrin to prevent hypotension. Patient remains full code. July 15: Dialyzed yesterday, due for dialysis tomorrow. Labs and medication list reviewed. Continue per consultants. Patient remains full code. COVID-19 detected again. July 14: Patient currently on dialysis. This is continuation of dialysis from yesterday as yesterday's dialysis was cut short due to catheter malfunction. Labs and medication reviewed. Continue per consultants. July 13: Patient currently on hemodialysis. The dialysis catheter which is a intrajugular Kamlesh has poor flow. Will try TPA. Continue per consultants. July 12: Due for PEG today. Due for dialysis tomorrow. Continue per consultants. Discussed with RN. July 11: Plan for dialysis today. Discussed with RN. Data reviewed. July 10: Plan for dialysis tomorrow July 11. Waiting for consent to proceed with PEG. Continue per consultants. Medication reviewed. Labs reviewed. Discussed with RN. July 09: Dialyzed yesterday. Labs reviewed. Medication reviewed. Next hemodialysis July 11. July 08: Patient has tracheostomy now. Connected to ventilator. Due for dialysis today. Continue per consultants. Discussed with SHANIQUE Romero. July 07: Patient is due for tracheostomy today. Patient was last dialyzed July 05. Will order dialysis for tomorrow. July 06: Patient is intubated on ventilator however the plan is to extubate today. Patient was dialysis yesterday July 05. The dialysis time was cut short due to patient's respiratory distress. Only 1 L was removed during dialysis yesterday. Today's lab reviewed. Continue per consultants. Will arrange for dialysis as needed. July 05: Patient due for dialysis today. Remains intubated. Will schedule permacath placement in a.m. blood cultures on July 04 are negative. July 04: Patient was dialyzed yesterday. Due for dialysis tomorrow. Continues to be intubated. After tomorrow's dialysis will order a permacath. July 03: Dialysis is about to be started now Continues to be intubated Will plan to remove the femoral dialysis catheter and exchanged for a new temporary catheter per ID recommendation We will check surveillance blood culture tomorrow July 02: Patient was dialyzed yesterday and due for dialysis tomorrow Stable from renal standpoint W on dialysis Continue per consultants, weaning....... etc. July 01: Dialysis today Other status unchanged June 30: Due for dialysis tomorrow Remains intubated on ventilator Labs and medication reviewed Discussed with SHANIQUE Stable from renal standpoint of view June 29: Dialyzed yesterday Due for dialysis tomorrow Stable from renal standpoint to view Keeps failing weaning process June 28: Patient due for dialysis today Stable from renal standpoint to view Continue per consultants June 27: Labs reviewed Due due for dialysis June 28 Discussed with SHANIQUE Dick Continue per consultants Remains intubated on ventilator June 26 Labs reviewed Dialyzed yesterday Started on weaning today Continue to monitor renal parameters June 25: On dialysis now Potassium supplement implemented Continue per consultants Next dialysis June 27June 15: Status unchanged Dialyzed yesterday will dialyze again tomorrow Potassium supplements given Discussed with RN June 14: Due dialysis today Status: Remains intubated on ventilator June 22: Status unchanged Dialyzed yesterday and duefordialysistomorrow Serum sodium stable today June 21 Remains intubated on ventilator Due dialysis today Emphasized high sodium bath for dialysis June 20: Remains intubated on ventilator Dialyzed June 19 next dialysis June 21 Serum sodium 128, will give 250 cc 3% saline Remains full code Discussed with RN Iron panel ordered June 19: Discussed with RN. Patient due for dialysis today. Continue pulmonary support. Remains full code. June 18: Patient dialyzed yesterday June 17 Serum sodium improved but still low Arrange for dialysis tomorrow May 10 Continue per consultants May 8: Due for dialysis today Today's lab reviewed, low serum sodium noted, Emphasized on high sodium bath to dialysis nurse Discussed with RN Alpa June 16: Dialyzed yesterday Remains intubated Labs reviewed, serum sodium 131 Plan to dialyze tomorrow June 17 with high sodium bath Discussed with SHANIQUE Yuen June 6: Due for dialysis today Labs reviewed Discussed with RN Transfuse 1 unit of packed RBCs today for low hemoglobin of 7.1 June 5: Blood pressure well maintained Receive dialysis June 13 next hemodialysis June 15June 4: Discussed with RN in ICU Patient did not receive proper dialysis yesterday due to dialysis catheter malfunction Catheter to be adjusted today and dialyzed to be resumed today Continue per consultants Positive for COVID 28 June 2: Patient now intubated on mechanical ventilation Discussed with SHANIQUE Yuen, today June 12 Patient received dialysis yesterday June 10 next hemodialysis June 12 Blood pressure better maintained Today's labs reviewed Continue per consultants Previously patient received dialysis last evening June 05, next dialysis June 07 which was incomplete due to patient's hypotension Will start on midodrine for blood pressure support. Meanwhile continue other pressors as needed Previously Patient is doing poorly, septic, white blood cells are rising, Hypotension somewhat improved We will keep n.p.o. , NG tube for medications, and change medication to IV as needed Patient remains full code Monitor vancomycin level Previously: Patient pulled out his femoral catheter yesterday June 03 which was reinserted by Dr. Mast Patient scheduled for dialysis again June 04, which again was not done due to dialysis nurse citing catheter malfunction Meanwhile continue management per ID, pulmonary , and psych. Meanwhile white blood cell count is rising. Patient blood pressure borderline low. Will check ABG Previously May 31 : I believe patient need dialysis treatment He however needs to competency assessment if can make decisions or not I will communicate with Dr. Mulligan Previously: Per pulmonary and ID advice Adjust blood pressure medication Renal diet Anemia work-up 2D echocardiogram refused Kidney ultrasound refused Jules catheter Urine studies Per orders Subjective ROS Limited/Unobtainable: Yes Objective Objective Last 24 Hour Vital Signs Date Time Temp Pulse Resp B/P (MAP) Pulse Ox O2 Delivery O2 Flow Rate FiO2 08/27/19 08:39 72 33 28 28 08/27/19 08:05 78 08/27/19 08:00 98.1 73 20 145/80 (101) 100 08/27/19 08:00 28 08/27/19 08:00 Mechanical Ventilator Mechanical Ventilator 08/27/19 07:30 68 27 28 08/27/19 04:00 Mechanical Ventilator Mechanical Ventilator 08/27/19 04:00 64 08/27/19 04:00 98.6 69 20 136/74 (94) 99 08/27/19 04:00 30 08/27/19 02:49 68 26 28 08/27/19 00:00 Mechanical Ventilator Mechanical Ventilator 08/27/19 00:00 98.4 71 18 153/91 (111) 100 08/27/19 00:00 30 08/26/19 23:41 66 08/26/19 22:59 67 26 28 08/26/19 21:42 65 30 28 08/26/19 20:00 98.2 74 16 142/78 (99) 99 08/26/19 20:00 30 08/26/19 20:00 Mechanical Ventilator Mechanical Ventilator 08/26/19 19:34 70 08/26/19 18:40 70 31 28 08/26/19 16:59 100 08/26/19 16:00 75 08/26/19 16:00 Mechanical Ventilator Mechanical Ventilator 08/26/19 16:00 30 08/26/19 16:00 97.7 61 18 135/72 (93) 100 08/26/19 15:22 69 28 28 08/26/19 12:00 Mechanical Ventilator Mechanical Ventilator 08/26/19 12:00 70 08/26/19 12:00 30 08/26/19 12:00 97.5 71 20 128/64 (85) 100 Intake and Output 08/26/19 08/27/19 18:59 06:59 Intake Total 730 ml 530 ml Output Total 0 ml 0 ml Balance 730 ml 530 ml Free Water 150 ml 50 ml IV Total 100 ml Tube Feeding 480 ml 480 ml Output Urine Total 0 ml 0 ml # Bowel Movements 6 3 Current Medications Medications (Trade) Dose Ordered Sig/Anthony Route PRN Reason Start Time Stop Time Status Last Admin Dose Admin Acetaminophen (Tylenol) 650 mg Q4H PRN NG For Pain 08/04/19 21:38 09/03/19 21:37 08/23/19 12:26 Acetaminophen (Tylenol) 650 mg Q4H PRN NG Temp >100.5 08/15/19 13:30 09/08/19 08:29 08/23/19 23:24 Chlorhexidine Gluconate (Michelle-Hex 2%) 1 applic DAILY@2000 TOPIC 08/21/19 20:00 11/19/19 19:59 08/26/19 20:21 Dextrose (Dextrose 50%) 25 ml Q30M PRN IV Hypoglycemia 08/04/19 22:00 09/18/19 19:29 Dextrose (Dextrose 50%) 50 ml Q30M PRN IV Hypoglycemia 08/04/19 22:00 09/18/19 19:29 Diphenoxylate HCl/ Atropine (Lomotil) 2.5 mg BID NG 08/24/19 18:00 09/17/19 17:59 08/27/19 08:31 Enoxaparin Sodium (Lovenox) 30 mg DAILY SUBQ 08/05/19 09:00 09/25/19 08:59 08/27/19 08:33 Epoetin Aftab (Epoetin Aftab(ESRD on dialysis)) 10,000 unit FRI- SUBQ 08/11/19 21:00 11/09/19 20:59 08/25/19 20:12 Fluconazole (Diflucan) 200 mg DAILY NG 08/13/19 10:24 08/30/19 10:23 08/27/19 08:31 Haloperidol Lactate 5 mg/ Dextrose 56 ml @ 224 mls/hr Q6H PRN IVPB Agitation 08/04/19 21:38 09/18/19 21:37 08/19/19 02:26 Hydralazine HCl (Apresoline) 10 mg Q4H PRN IV Blood pressure over 160 systol 08/04/19 21:39 11/02/19 21:38 Insulin Aspart (NovoLOG) EVERY 6 HOURS SUBQ 08/05/19 00:00 09/19/19 00:00 08/27/19 05:40 Loperamide HCl (Imodium) 2 mg Q6H NG 08/18/19 14:00 09/15/19 13:59 08/27/19 08:31 Midodrine (Pro-Amatine) 10 mg THREE TIMES A DAY NG 08/15/19 18:00 11/13/19 17:59 08/26/19 18:09 Vancomycin HCl ([facility] pharmacy to dose) 1 ea DAILY PRN MISC Per rx protocol 7/5/20 08:45 09/14/19 08:44 Laboratory Tests 08/26/19 12:26: POC Whole Blood Glucose [Pending] 08/26/19 18:10: POC Whole Blood Glucose [Pending] 08/27/19 00:22: POC Whole Blood Glucose [Pending] 08/27/19 03:45: White Blood Count 4.0L, Red Blood Count 2.97L, Hemoglobin 8.0L, Hematocrit 26.9L , Mean Corpuscular Volume 91, Mean Corpuscular Hemoglobin 26.9L, Mean Corpuscular Hemoglobin Concent 29.7L, Red Cell Distribution Width 17.6H, Platelet Count 441, Mean Platelet Volume 6.0L, Neutrophils (%) (Auto) , Lymphocytes (%) (Auto) , Monocytes (%) (Auto) , Eosinophils (%) (Auto) , Basophils (%) (Auto) , Sodium Level 140, Potassium Level 3.7, Chloride Level 101 , Carbon Dioxide Level 25, Anion Gap 14, Blood Urea Nitrogen 50H, Creatinine 6.7H, Estimat Glomerular Filtration Rate 8.3, Glucose Level 163H, Calcium Level 9.2, Phosphorus Level 3.4, Total Bilirubin 0.3, Aspartate Amino Transf (AST/SGOT ) 15, Alanine Aminotransferase (ALT/SGPT) 9L, Alkaline Phosphatase 96, Total Protein 7.9, Albumin 2.5L, Globulin 5.4, Albumin/Globulin Ratio 0.5L, Random Vancomycin Level 22.7, TB Test (T-Spot) [Pending], TB Test Nil Control (T-Spot) [Pending], TB Test Panel A (T-Spot) [Pending], TB Test Panel B (T-Spot) [Pending ], TB Test Positive Control (T-Spot) [Pending] Height (Feet): 6 Height (Inches): 1.00 Weight (Pounds): 167 General Appearance: no apparent distress EENT: other - Trach to vent Cardiovascular: tachycardia Respiratory/Chest: decreased breath sounds Abdomen: other - PEG in place Objective No change Mic Cole MD Aug 27, 2019 11:11
--- NOTE | 2019-08-27 11:48 | General Progress Note ---
Assessment/Plan Status: progressing, unchanged Assessment/Plan: 1. Diabetes. 2. Hypertension. 3. Coronary artery disease. 4. COPD. 5. Psychiatric disorder with schizophrenia. 6. History of hepatitis C. 7. HLP. 8. Chronic kidney disease, now with acute renal failure. 9. Anemia. 10. Hypothyroidism. 11. Spinal stenosis. 12. Constipation. 13. GERD. 14. COVID positive HD per nephrology fu labs s/p PEG GTF TF at 40 cc imodium lomotil neg C.diff off reglan monitor for residuals Subjective ROS Limited/Unobtainable: No Allergies: Coded Allergies: No Known Allergies (Unverified , 05/28/19) Objective Last 24 Hour Vital Signs Date Time Temp Pulse Resp B/P (MAP) Pulse Ox O2 Delivery O2 Flow Rate FiO2 08/27/19 08:39 72 33 28 28 08/27/19 08:05 78 08/27/19 08:00 98.1 73 20 145/80 (101) 100 08/27/19 08:00 28 08/27/19 08:00 Mechanical Ventilator Mechanical Ventilator 08/27/19 07:30 68 27 28 08/27/19 04:00 Mechanical Ventilator Mechanical Ventilator 08/27/19 04:00 64 08/27/19 04:00 98.6 69 20 136/74 (94) 99 08/27/19 04:00 30 08/27/19 02:49 68 26 28 08/27/19 00:00 Mechanical Ventilator Mechanical Ventilator 08/27/19 00:00 98.4 71 18 153/91 (111) 100 08/27/19 00:00 30 08/26/19 23:41 66 08/26/19 22:59 67 26 28 08/26/19 21:42 65 30 28 08/26/19 20:00 98.2 74 16 142/78 (99) 99 08/26/19 20:00 30 08/26/19 20:00 Mechanical Ventilator Mechanical Ventilator 08/26/19 19:34 70 08/26/19 18:40 70 31 28 08/26/19 16:59 100 08/26/19 16:00 75 08/26/19 16:00 Mechanical Ventilator Mechanical Ventilator 08/26/19 16:00 30 08/26/19 16:00 97.7 61 18 135/72 (93) 100 08/26/19 15:22 69 28 28 08/26/19 12:00 Mechanical Ventilator Mechanical Ventilator 08/26/19 12:00 70 08/26/19 12:00 30 08/26/19 12:00 97.5 71 20 128/64 (85) 100 Intake and Output 08/26/19 08/27/19 19:00 07:00 Intake Total 730 ml 530 ml Output Total 0 ml 0 ml Balance 730 ml 530 ml Free Water 150 ml 50 ml IV Total 100 ml Tube Feeding 480 ml 480 ml Output Urine Total 0 ml 0 ml # Bowel Movements 6 3 Laboratory Tests 08/26/19 12:26: POC Whole Blood Glucose [Pending] 08/26/19 18:10: POC Whole Blood Glucose [Pending] 08/27/19 00:22: POC Whole Blood Glucose [Pending] 08/27/19 03:45: White Blood Count 4.0L, Red Blood Count 2.97L, Hemoglobin 8.0L, Hematocrit 26.9L , Mean Corpuscular Volume 91, Mean Corpuscular Hemoglobin 26.9L, Mean Corpuscular Hemoglobin Concent 29.7L, Red Cell Distribution Width 17.6H, Platelet Count 441, Mean Platelet Volume 6.0L, Neutrophils (%) (Auto) , Lymphocytes (%) (Auto) , Monocytes (%) (Auto) , Eosinophils (%) (Auto) , Basophils (%) (Auto) , Sodium Level 140, Potassium Level 3.7, Chloride Level 101 , Carbon Dioxide Level 25, Anion Gap 14, Blood Urea Nitrogen 50H, Creatinine 6.7H, Estimat Glomerular Filtration Rate 8.3, Glucose Level 163H, Calcium Level 9.2, Phosphorus Level 3.4, Total Bilirubin 0.3, Aspartate Amino Transf (AST/SGOT ) 15, Alanine Aminotransferase (ALT/SGPT) 9L, Alkaline Phosphatase 96, Total Protein 7.9, Albumin 2.5L, Globulin 5.4, Albumin/Globulin Ratio 0.5L, Random Vancomycin Level 22.7, TB Test (T-Spot) [Pending], TB Test Nil Control (T-Spot) [Pending], TB Test Panel A (T-Spot) [Pending], TB Test Panel B (T-Spot) [Pending ], TB Test Positive Control (T-Spot) [Pending] Height (Feet): 6 Height (Inches): 1.00 Weight (Pounds): 167 General Appearance: no apparent distress EENT: normal ENT inspection Neck: supple Cardiovascular: normal rate Respiratory/Chest: decreased breath sounds Abdomen: normal bowel sounds, non tender, soft Extremities: non-tender Marito Ramires MD Aug 27, 2019 11:48
[2019-08-27 12:00] VITALS: BP 136/79
--- NOTE | 2019-08-27 14:16 | Cardiac Electrophysiology PN ---
Assessment/Plan Assessment/Plan 1. NSTEMI type 2. Low level and flat due to renal failure. On Aspirin. EF 60%. 2. S/P Septic shock. On Abx. On Midodrine 10 tid. 3. ESRD, on HD per Dr. Cole. S/P Left SC Kamlesh catheter placement by Dr Mast HD tomorrow again 4. VDRF due to COVID pneumonia. S/P Tracheostomy 07/08/19. 5. Atrial fib with RVR. Off Lopressor for Low BP, in SR 6. Dysphagia, S/P PEG 07/13/19 7. COPD. 8. Anemia. 9. Diarrhea 10. COVID19 pneumonia Positive: 05/27, 05/31 , 06/05, 06/09 ,06/17,06/19, 06/23, 06/27, 07/03, 07/15, 07/29 Negative: 07/26, 08/04, 08/05 DW RN Subjective Subjective In SDU on the vent via trach. Off pressors. Fio2 28%. Off isolation as Covid negative on 08/07/19. S/P subclavian Kamlesh catheter by Dr. Mast Awaiting 3rd Covid that was done yesterday before going back to SN Objective Last 24 Hour Vital Signs Date Time Temp Pulse Resp B/P (MAP) Pulse Ox O2 Delivery O2 Flow Rate FiO2 08/27/19 12:00 Mechanical Ventilator Mechanical Ventilator 08/27/19 12:00 96.6 78 24 136/79 (98) 98 08/27/19 12:00 28 08/27/19 11:28 76 08/27/19 08:39 72 33 28 28 08/27/19 08:05 78 08/27/19 08:00 98.1 73 20 145/80 (101) 100 08/27/19 08:00 28 08/27/19 08:00 Mechanical Ventilator Mechanical Ventilator 08/27/19 07:30 68 27 28 08/27/19 04:00 Mechanical Ventilator Mechanical Ventilator 08/27/19 04:00 64 08/27/19 04:00 98.6 69 20 136/74 (94) 99 08/27/19 04:00 30 08/27/19 02:49 68 26 28 08/27/19 00:00 Mechanical Ventilator Mechanical Ventilator 08/27/19 00:00 98.4 71 18 153/91 (111) 100 08/27/19 00:00 30 08/26/19 23:41 66 08/26/19 22:59 67 26 28 08/26/19 21:42 65 30 28 08/26/19 20:00 98.2 74 16 142/78 (99) 99 08/26/19 20:00 30 08/26/19 20:00 Mechanical Ventilator Mechanical Ventilator 08/26/19 19:34 70 08/26/19 18:40 70 31 28 08/26/19 16:59 100 08/26/19 16:00 75 08/26/19 16:00 Mechanical Ventilator Mechanical Ventilator 08/26/19 16:00 30 08/26/19 16:00 97.7 61 18 135/72 (93) 100 08/26/19 15:22 69 28 28 Intake and Output 08/26/19 08/27/19 19:00 07:00 Intake Total 730 ml 530 ml Output Total 0 ml 0 ml Balance 730 ml 530 ml Free Water 150 ml 50 ml IV Total 100 ml Tube Feeding 480 ml 480 ml Output Urine Total 0 ml 0 ml # Bowel Movements 6 3 Laboratory Tests Test 08/26/19 18:10 08/27/19 00:22 08/27/19 03:45 POC Whole Blood Glucose Pending Pending White Blood Count 4.0 K/UL (4.8-10.8) L Red Blood Count 2.97 M/UL (4.70-6.10) L Hemoglobin 8.0 G/DL (14.2-18.0) L Hematocrit 26.9 % (42.0-52.0) L Mean Corpuscular Volume 91 FL (80-99) Mean Corpuscular Hemoglobin 26.9 PG (27.0-31.0) L Mean Corpuscular Hemoglobin Concent 29.7 G/DL (32.0-36.0) L Red Cell Distribution Width 17.6 % (11.6-14.8) H Platelet Count 441 K/UL (150-450) Mean Platelet Volume 6.0 FL (6.5-10.1) L Neutrophils (%) (Auto) % (45.0-75.0) Lymphocytes (%) (Auto) % (20.0-45.0) Monocytes (%) (Auto) % (1.0-10.0) Eosinophils (%) (Auto) % (0.0-3.0) Basophils (%) (Auto) % (0.0-2.0) Sodium Level 140 MMOL/L (136-145) Potassium Level 3.7 MMOL/L (3.5-5.1) Chloride Level 101 MMOL/L (98-107) Carbon Dioxide Level 25 MMOL/L (21-32) Anion Gap 14 mmol/L (5-15) Blood Urea Nitrogen 50 mg/dL (7-18) H Creatinine 6.7 MG/DL (0.55-1.30) H Estimat Glomerular Filtration Rate 8.3 mL/min (>60) Glucose Level 163 MG/DL (74-106) H Calcium Level 9.2 MG/DL (8.5-10.1) Phosphorus Level 3.4 MG/DL (2.5-4.9) Total Bilirubin 0.3 MG/DL (0.2-1.0) Aspartate Amino Transf (AST/SGOT) 15 U/L (15-37) Alanine Aminotransferase (ALT/SGPT) 9 U/L (12-78) L Alkaline Phosphatase 96 U/L (46-116) Total Protein 7.9 G/DL (6.4-8.2) Albumin 2.5 G/DL (3.4-5.0) L Globulin 5.4 g/dL Albumin/Globulin Ratio 0.5 (1.0-2.7) L Random Vancomycin Level 22.7 ug/mL TB Test (T-Spot) Pending TB Test Nil Control (T-Spot) Pending TB Test Panel A (T-Spot) Pending TB Test Panel B (T-Spot) Pending TB Test Positive Control (T-Spot) Pending Objective HEAD AND NECK: No JVD. Tracheostomy in place. Left SC Kamlesh now in place. LUNGS: Decreased breath sounds. CARDIOVASCULAR: Regular S1 and S2. Tachycardic. ABDOMEN: Soft. PEG in place EXTREMITIES: No pitting edema. Gio Baker MD Aug 27, 2019 14:16
--- NOTE | 2019-08-27 14:32 | Surgery Progress Note ---
Surgery Progress Note Subjective Procedure Performed Insertion of left subclavian temporary hemodialysis catheter Tracheostomy exchange 8 Cypriot Shiley Additional Comments improving labs noted exam stable line okay receiving HD Objective Last 24 Hour Vital Signs Date Time Temp Pulse Resp B/P (MAP) Pulse Ox O2 Delivery O2 Flow Rate FiO2 08/27/19 12:00 Mechanical Ventilator Mechanical Ventilator 08/27/19 12:00 96.6 78 24 136/79 (98) 98 08/27/19 12:00 28 08/27/19 11:28 76 08/27/19 08:39 72 33 28 28 08/27/19 08:05 78 08/27/19 08:00 98.1 73 20 145/80 (101) 100 08/27/19 08:00 28 08/27/19 08:00 Mechanical Ventilator Mechanical Ventilator 08/27/19 07:30 68 27 28 08/27/19 04:00 Mechanical Ventilator Mechanical Ventilator 08/27/19 04:00 64 08/27/19 04:00 98.6 69 20 136/74 (94) 99 08/27/19 04:00 30 08/27/19 02:49 68 26 28 08/27/19 00:00 Mechanical Ventilator Mechanical Ventilator 08/27/19 00:00 98.4 71 18 153/91 (111) 100 08/27/19 00:00 30 08/26/19 23:41 66 08/26/19 22:59 67 26 28 08/26/19 21:42 65 30 28 08/26/19 20:00 98.2 74 16 142/78 (99) 99 08/26/19 20:00 30 08/26/19 20:00 Mechanical Ventilator Mechanical Ventilator 08/26/19 19:34 70 08/26/19 18:40 70 31 28 08/26/19 16:59 100 08/26/19 16:00 75 08/26/19 16:00 Mechanical Ventilator Mechanical Ventilator 08/26/19 16:00 30 08/26/19 16:00 97.7 61 18 135/72 (93) 100 08/26/19 15:22 69 28 28 I&O Intake and Output 08/26/19 08/27/19 19:00 07:00 Intake Total 730 ml 530 ml Output Total 0 ml 0 ml Balance 730 ml 530 ml Free Water 150 ml 50 ml IV Total 100 ml Tube Feeding 480 ml 480 ml Output Urine Total 0 ml 0 ml # Bowel Movements 6 3 Dressing: dry Wound: clean Cardiovascular: RSR Respiratory: clear, decreased breath sounds Abdomen: soft, non-tender, present bowel sounds Extremities: no edema, no tenderness, no cyanosis Laboratory Tests Test 08/26/19 18:10 08/27/19 00:22 08/27/19 03:45 POC Whole Blood Glucose Pending Pending White Blood Count 4.0 K/UL (4.8-10.8) L Red Blood Count 2.97 M/UL (4.70-6.10) L Hemoglobin 8.0 G/DL (14.2-18.0) L Hematocrit 26.9 % (42.0-52.0) L Mean Corpuscular Volume 91 FL (80-99) Mean Corpuscular Hemoglobin 26.9 PG (27.0-31.0) L Mean Corpuscular Hemoglobin Concent 29.7 G/DL (32.0-36.0) L Red Cell Distribution Width 17.6 % (11.6-14.8) H Platelet Count 441 K/UL (150-450) Mean Platelet Volume 6.0 FL (6.5-10.1) L Neutrophils (%) (Auto) % (45.0-75.0) Lymphocytes (%) (Auto) % (20.0-45.0) Monocytes (%) (Auto) % (1.0-10.0) Eosinophils (%) (Auto) % (0.0-3.0) Basophils (%) (Auto) % (0.0-2.0) Sodium Level 140 MMOL/L (136-145) Potassium Level 3.7 MMOL/L (3.5-5.1) Chloride Level 101 MMOL/L (98-107) Carbon Dioxide Level 25 MMOL/L (21-32) Anion Gap 14 mmol/L (5-15) Blood Urea Nitrogen 50 mg/dL (7-18) H Creatinine 6.7 MG/DL (0.55-1.30) H Estimat Glomerular Filtration Rate 8.3 mL/min (>60) Glucose Level 163 MG/DL (74-106) H Calcium Level 9.2 MG/DL (8.5-10.1) Phosphorus Level 3.4 MG/DL (2.5-4.9) Total Bilirubin 0.3 MG/DL (0.2-1.0) Aspartate Amino Transf (AST/SGOT) 15 U/L (15-37) Alanine Aminotransferase (ALT/SGPT) 9 U/L (12-78) L Alkaline Phosphatase 96 U/L (46-116) Total Protein 7.9 G/DL (6.4-8.2) Albumin 2.5 G/DL (3.4-5.0) L Globulin 5.4 g/dL Albumin/Globulin Ratio 0.5 (1.0-2.7) L Random Vancomycin Level 22.7 ug/mL TB Test (T-Spot) Pending TB Test Nil Control (T-Spot) Pending TB Test Panel A (T-Spot) Pending TB Test Panel B (T-Spot) Pending TB Test Positive Control (T-Spot) Pending Plan Problems: (1) Suspected COVID-19 virus infection (2) HTN (hypertension) (3) CASSANDRA (acute kidney injury) Assessment & Plan: Needs urgent HD needs access patient okay and consented see note will follow with recs new line placed discussed with team and nephrology HD line functional when checked has TPA now please use appropriately Cathflo used again this flow during dialysis on 430 was low. Will monitor may need line change 5/4 plan for HD as per renal may need to take fluid off with HD edema anasarca dressings saturated and changed will monitor cont with HD IJ left line placed for HD given extent of prior line in place. leukocytosis blood cx negative may need to change out line new line okay HD going well Continue HD as tolerated May need pressors for HD as needed (4) Anemia in chronic kidney disease (CKD) (5) Anemia (6) Renal failure (7) Suspected COVID-19 virus infection Assessment & Plan: Pt deconditioned and despite all skin preventions Pt noted to have developed several pressure injuries. . Stable dry eschar noted to clefts of R and L ears. No erythema noted . DTPI noted to L trochanter. Base of injury is maroon in colour with marginal erythema along borders. Partially opened DTPI Sacrum, R and L Buttocks. Base of wound is maroon with two small open wounds L sacrum and L buttocks. Pt has an APM/MOMO Mattress overlay and is being positioned with pillows as per tolerance and within protocols. worsening despite medical efforts will cont to provide therapy Tx.Plan: Apply Cavilon Skin Barrier to both ears Daily and prn. Apply Moisture Barrier Paste to Sacrum,R and L Buttocks. Cover with Optifoam drsgs. Change every 3 days and PRN. Apply Cavilon Skin Barrier to R and L trochanter. Cover each site with Optifoam drsgs.Change every 7 days and PRN. Apply Cavilon Skin Barrier to both heels. Cover each heel with Optifoam drsg. Change every 7 days and prn. Off-load heels with pillow. Reposition at least every 2hours or as tolerated. APM/MOMO Mattress overlay. (8) COVID-19 Assessment & Plan: COVID + c diff negative febrile leukocytosis renal insufficiency see above cont resp care Rx as per ID worsening on vent support now cxr noted on pressors prognosis guarded repeat covid ++ weaning vent and pressors off slowly showing improvement slowly recovering will need trach as unable to wean vent safely [facility] obtained s/p trach pending peg worsening on levo max (9) Sepsis Assessment & Plan: worsening leukocytosis febrile on pressors discussed with ID. lines evaluated and clean. he is septic on pressors and needs central access in difficult venous access patient blood cultures negative will monitor temp HD cath out now with permacath left tlc still subclavian needed line c/d/i line negative c diff negative wbc resolved improved d/c planning febrile leukocytosis hold d/c infectious work up in place yeast in cultures fevers persistent fungemia abx as per ID hold on line removal cont abx repeat cx Plan for line removal plan for line holiday will replace dialysis catheter PRN Hemodialysis line change August 20 Tracheostomy exchange 8 Cypriot Shiley due to balloon insufficiency August 20 Yaniv Mast Aug 27, 2019 14:32
[2019-08-27 16:00] VITALS: BP 134/79
[2019-08-27 20:00] VITALS: BP 154/85
[2019-08-27] MEDS: Epoetin Alfa-EPBX(ESRD on dialysis)10,000 unit/ml vial SUBQ SCH (20:51)
[2019-08-27] MEDS: Dyna-Hex 2% Top Sol 2oz TOPIC SCH (20:51)
--- NOTE | 2019-08-27 21:04 | General Progress Note ---
Assessment/Plan Problem List: (1) HTN (hypertension) ICD Codes: I10 - Essential (primary) hypertension SNOMED: 91835904 (2) CASSANDRA (acute kidney injury) ICD Codes: N17.9 - Acute kidney failure, unspecified SNOMED: 3959260, 64116359 (3) Anemia in chronic kidney disease (CKD) ICD Codes: N18.9 - Chronic kidney disease, unspecified; D63.1 - Anemia in chronic kidney disease SNOMED: 116257302 (4) Renal failure ICD Codes: N19 - Unspecified kidney failure SNOMED: 85404249 (5) Respiratory failure requiring intubation ICD Codes: J96.90 - Respiratory failure, unspecified, unspecified whether with hypoxia or hypercapnia; A41.89 - Other specified sepsis SNOMED: 418215357, 537275336 (6) Pneumonia due to COVID-19 virus ICD Codes: U07.1 - COVID-19; J12.89 - Other viral pneumonia SNOMED: 072288876, 028914005 (7) Sepsis due to severe acute respiratory syndrome coronavirus 2 (SARS-CoV-2) ICD Codes: U07.1 - COVID-19; A41.89 - Other specified sepsis SNOMED: 952742943, 984416388 Status: progressing, unchanged Assessment/Plan: trach and peg needs placement malnutrition afebrile h/o covid .positive blood cx needs placement reviewed chart and labs Subjective ROS Limited/Unobtainable: Yes Allergies: Coded Allergies: No Known Allergies (Unverified , 05/28/19) Objective Last 24 Hour Vital Signs Date Time Temp Pulse Resp B/P (MAP) Pulse Ox O2 Delivery O2 Flow Rate FiO2 08/27/19 20:00 28 08/27/19 20:00 98.2 100 20 154/85 (108) 98 08/27/19 18:56 92 33 28 08/27/19 18:39 Mechanical Ventilator Mechanical Ventilator 08/27/19 16:00 28 08/27/19 16:00 Mechanical Ventilator Mechanical Ventilator 08/27/19 16:00 98.6 91 20 134/79 (97) 97 08/27/19 15:33 86 08/27/19 15:20 90 34 28 28 08/27/19 12:00 Mechanical Ventilator Mechanical Ventilator 08/27/19 12:00 96.6 78 24 136/79 (98) 98 08/27/19 12:00 28 08/27/19 11:28 76 08/27/19 11:21 79 28 28 28 08/27/19 08:39 72 33 28 28 08/27/19 08:05 78 08/27/19 08:00 98.1 73 20 145/80 (101) 100 08/27/19 08:00 28 08/27/19 08:00 Mechanical Ventilator Mechanical Ventilator 08/27/19 07:30 68 27 28 08/27/19 04:00 Mechanical Ventilator Mechanical Ventilator 08/27/19 04:00 64 08/27/19 04:00 98.6 69 20 136/74 (94) 99 08/27/19 04:00 30 08/27/19 02:49 68 26 28 08/27/19 00:00 Mechanical Ventilator Mechanical Ventilator 08/27/19 00:00 98.4 71 18 153/91 (111) 100 08/27/19 00:00 30 08/26/19 23:41 66 08/26/19 22:59 67 26 28 08/26/19 21:42 65 30 28 Intake and Output 08/26/19 08/27/19 19:00 07:00 Intake Total 730 ml 530 ml Output Total 0 ml 0 ml Balance 730 ml 530 ml Free Water 150 ml 50 ml IV Total 100 ml Tube Feeding 480 ml 480 ml Output Urine Total 0 ml 0 ml # Bowel Movements 6 3 Laboratory Tests 08/27/19 00:22: POC Whole Blood Glucose [Pending] 08/27/19 03:45: White Blood Count 4.0L, Red Blood Count 2.97L, Hemoglobin 8.0L, Hematocrit 26.9L , Mean Corpuscular Volume 91, Mean Corpuscular Hemoglobin 26.9L, Mean Corpuscular Hemoglobin Concent 29.7L, Red Cell Distribution Width 17.6H, Platelet Count 441, Mean Platelet Volume 6.0L, Neutrophils (%) (Auto) , Lymphocytes (%) (Auto) , Monocytes (%) (Auto) , Eosinophils (%) (Auto) , Basophils (%) (Auto) , Sodium Level 140, Potassium Level 3.7, Chloride Level 101 , Carbon Dioxide Level 25, Anion Gap 14, Blood Urea Nitrogen 50H, Creatinine 6.7H, Estimat Glomerular Filtration Rate 8.3, Glucose Level 163H, Calcium Level 9.2, Phosphorus Level 3.4, Total Bilirubin 0.3, Aspartate Amino Transf (AST/SGOT ) 15, Alanine Aminotransferase (ALT/SGPT) 9L, Alkaline Phosphatase 96, Total Protein 7.9, Albumin 2.5L, Globulin 5.4, Albumin/Globulin Ratio 0.5L, Random Vancomycin Level 22.7, TB Test (T-Spot) [Pending], TB Test Nil Control (T-Spot) [Pending], TB Test Panel A (T-Spot) [Pending], TB Test Panel B (T-Spot) [Pending ], TB Test Positive Control (T-Spot) [Pending] Height (Feet): 6 Height (Inches): 1.00 Weight (Pounds): 167 Karishma Mulligan MD Aug 27, 2019 21:04
[2019-08-28] VITALS: BP 146/64
[2019-08-28 04:00] VITALS: BP 144/64
[2019-08-28] MEDS: NovoLOG Insulin Flexpen SUBQ SCH ×3 (05:38→17:31)
--- NOTE | 2019-08-28 06:26 | Pulmonolgy Critical Care Note ---
Critical Care - Asmt/Plan Assessment/Plan: Pulmonary Progress Note HPI: Patient is a 68 year old man, [place] resident, admitted c/o shortness of breath, cough, noted to have Covid 19 Pneumonia, Respiratory Failure Remains on Ventilator, CXR stable, mild interstitial prominence, 08/22 Anemia CKD on HD, will need eventual placement, second consecutive repeat COVID19 test negative Preserved EF FIO2 28%, P5, adequate O2 sats, remains on ACVC, tolerating CPAP PS 8 day, adequate ABG, s/p Tracheostomy previously, sp PEG, sp new HD line insertion ID following MRSA sputum Sp Trach change 08/20 Reviewed earlier on 08/27/2019 Past Medical History: COPD, CKD, Hypertension, Anemia Allergies: No Known Allergies Physical Exam Vital Signs Noted Stable on ventilator Chronically ill appearing HEENT: Trach CDI Chest: CTAB Hreart: HS1, HS2, RRR Abdomen: SNTND, Gtube Extremities: Wasted, no edema [employer]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 Impression: COVID-19 virus infection - now Covid negative Pneumonia Respiratory failure on ventilator, wean as tolerated CKD - on HD Previous NSTEMI Hypotension resolved Cardiomegaly Fungemia MRSA sputum COPD Chronic Kidney Disease - HD H/o Hypertension Anemia Plan: trach care as is Antibiotics per ID HD per renal monitor vitals AC - wean as tolerated, PS 8 AM PT eval, up in chair as tolerated anxiolytics if needed 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 PRN Monitor lab data nutrition feeds Hemodialysis per Renal impression, plan, and exam edited and reviewed in detail care discussed with RN Laboratory Tests Noted: CXR: No acute changes Subjective ROS Limited/Unobtainable: Yes Allergies: Coded Allergies: No Known Allergies (Unverified , 05/28/19) Critical Care - Objective Last 24 Hour Vital Signs Date Time Temp Pulse Resp B/P (MAP) Pulse Ox O2 Delivery O2 Flow Rate FiO2 08/28/19 04:00 98.2 87 20 144/64 (90) 100 08/28/19 04:00 Mechanical Ventilator Mechanical Ventilator 08/28/19 04:00 28 08/28/19 03:44 95 08/28/19 03:13 99 30 28 08/28/19 00:00 Mechanical Ventilator Mechanical Ventilator 08/28/19 00:00 98.9 100 18 146/64 (91) 99 08/27/19 22:49 73 26 28 08/27/19 21:06 92 34 28 08/27/19 20:00 98 08/27/19 20:00 28 08/27/19 20:00 98.2 100 20 154/85 (108) 98 08/27/19 20:00 Mechanical Ventilator Mechanical Ventilator 08/27/19 18:56 92 33 28 08/27/19 18:39 Mechanical Ventilator Mechanical Ventilator 08/27/19 16:00 28 08/27/19 16:00 Mechanical Ventilator Mechanical Ventilator 08/27/19 16:00 98.6 91 20 134/79 (97) 97 08/27/19 15:33 86 08/27/19 15:20 90 34 28 28 08/27/19 12:00 Mechanical Ventilator Mechanical Ventilator 08/27/19 12:00 96.6 78 24 136/79 (98) 98 08/27/19 12:00 28 08/27/19 11:28 76 08/27/19 11:21 79 28 28 28 08/27/19 08:39 72 33 28 28 08/27/19 08:39 100 08/27/19 08:05 78 08/27/19 08:00 98.1 73 20 145/80 (101) 100 08/27/19 08:00 28 08/27/19 08:00 Mechanical Ventilator Mechanical Ventilator 08/27/19 07:30 68 27 28 Accucheck: 158 Critical Care - Subjective ROS Limited/Unobtainable: Yes Condition: stable IV Access: central FI02: 28 Vent Support Breath Rate: 26 Vent Support Mode: AC Vent Tidal Volume: 500 Sputum Amount: Moderate PEEP: 5.0 PIP: 25 Tube Feeding Amount: 40 I&O: Intake and Output 08/27/19 08/28/19 19:00 07:00 Intake Total 680 ml 500 ml Balance 680 ml 500 ml Free Water 200 ml 60 ml Tube Feeding 480 ml 440 ml # Bowel Movements 3 4 ET-Tube: 7.5 ET Position: 24 Arturo Mckeon MD Aug 28, 2019 06:26
[2019-08-28 08:00] VITALS: BP 146/77
[2019-08-28] MEDS: Midodrine 10mg tab NG SCH ×3 (08:03→17:32)
[2019-08-28] MEDS: Fluconazole 100mg tab NG SCH (09:19)
[2019-08-28] MEDS: Lomotil 2.5mg tab NG SCH ×2 (09:19→17:30)
[2019-08-28] MEDS: Enoxaparin 30mg Inj SUBQ SCH (09:21)
[2019-08-28 12:00] VITALS: BP 146/87
--- NOTE | 2019-08-28 12:47 | Nephrology Progress Note ---
Assessment/Plan Problem List: (1) CASSANDRA (acute kidney injury) (2) Anemia in chronic kidney disease (CKD) (3) HTN (hypertension) (4) COVID-19 Assessment Acute renal failure most likely superimposed on chronic kidney disease Suspected COVID-19 virus infection Possible Pneumonia, lymphopenia, elevated AST Cardiomegaly, possible CHF COPD Hypertension Anemia, most likely related to chronic kidney disease Plan August 27: Dialysis today. Blood pressure stable. No labs drawn today. Continue per consultants. August 26: Dialysis tomorrow August 27. Blood pressure is stable. Aim to ultrafiltrate 1 L. Labs reviewed. Continue per consultants. August 25: Dialyzed yesterday. No UF. Blood pressure is stable. Potassium supplement given. Next hemodialysis planned for August 27. Will order sooner if needed. August 24: No chemistry panel today. Due for dialysis today. Blood pressure stable. August 23: Labs reviewed. Potassium supplement given. Blood pressure is stable. Due for dialysis tomorrow. No ultrafiltration will be done. August 22: Patient was dialyzed yesterday. Pressure low today. 500 cc albumin ordered. Continue to monitor renal parameters. Continue to be on Midodrin. August 21: A temporary catheter for dialysis was put in yesterday, and the patient is due for dialysis today. Continue per consultants. August 20: Patient due for insertion of a temporary dialysis catheter. I ordered dialysis for tomorrow August 21. Continue per consultants. Discussed with Donna " August 19: Permacath discontinued. Due for temporary non-tunneled dialysis access. White blood cells are up to over 14,000. Will dialyze as needed. August 18: Discussed with ID and general surgery. Will remove the permacath which is thought to be infected by IR today. Will monitor renal parameters. Will obtain surveillance cultures tomorrow. Will attempt to put a temporary dialysis access in 48 to 72 hours for dialysis purposes. August 17: Last dialysis August 15, no blood work done today yet. Will reassess if dialysis should be continued. Continue per current management. We will make arrangement to DC permacath and reinsert a new one via general surgery and or interventional radiology August 16: Albumin for low BP. Continue to monitor renal parameters. August 6: Due for dialysis today. Remains borderline low. No ultrafiltration during dialysis. Discussed with SHANIQUE Macdonald. August 14: No labs done today. Patient hypotensive. Normal saline and albumin bolus given. Midodrin started. Will check lab tomorrow. August 13: Lab reviewed. Last dialysis yesterday. Next dialysis August 15. Potassium and phosphorus supplement given. Continue per consultants. August 12: No can panel done today. Due for dialysis today. Continue per consultants. August 11: Patient labs reviewed. Will order dialysis tomorrow. Continue per consultants. August 10: Patient was dialyzed yesterday. Today's labs checked. Stable from renal standpoint to view August 09: Patient scheduled for hemodialysis today. Will check labs tomorrow. August 08: Lab reviewed. Hemodialysis scheduled for tomorrow. August 07: Dialyzed yesterday. No labs drawn today. Will check labs tomorrow. Continue per consultants. August 06: Patient on dialysis now. Discussed with dialysis nurse. Slight catheter malfunction persist. August 05: Labs reviewed. Dialysis scheduled for tomorrow. Continue per consultants. August 04: No labs done today. Dialyzed yesterday. Check labs tomorrow. Continue per consultants. August 03: Lab reviewed. Due for dialysis today. White blood cell 17,500. August 02: Lab reviewed. Low phosphorus replaced. Hemodialysis ordered for tomorrow. White blood cells over 18,000. August 01: Labs reviewed. Potassium replacement ordered. Remains full code on ventilator via trach. Continue per consultants. July 31: Dialyzed yesterday. No can panel today. Remains full code. Remains on ventilator. Being fed through PEG. Continue per consultants. July 30: Patient due for dialysis today. Labs are reviewed. Remains full code. Status post trach to ventilator. Status post PEG. July 29: Patient dialyzed yesterday. Due for dialysis tomorrow. Remains in ICU. Full code. Status post trach tube to ventilator. Status post PEG. July 28: Due for dialysis today. Labs reviewed. Full code. Patient trached and vented. July 27: Last COVID test negative. COVID test will be repeated tomorrow. Will order dialysis tomorrow. Remains full code. Medication list and labs reviewed. July 26: No labs done today. Dialysis done yesterday. Will check lab tomorrow. Dialysis as needed. July 25: Lab reviewed. Dialysis today. Discussed with RN. July 24: Lab reviewed. Do dialysis tomorrow. Discussed with RN. July 23: Lab reviewed. Dialyzed yesterday. Discussed with RN. Remains full code. Next dialysis July 25. Will check labs tomorrow. July 22: Labs reviewed. Due for dialysis today. Discussed with RN. Watch borderline low blood pressure. Discussed with dialysis nurse. July 21: Today's lab reviewed. Will arrange for dialysis tomorrow. Discussed with RN. Aim to keep the blood pressure above 100 systolic. Continue per consultants. July 20: Patient was dialyzed yesterday. Could not ultrafiltrate much due to low blood pressure. Discussed with SHANIQUE Dick today. No labs drawn today. Continue per consultants. July 19: Due for dialysis today. Discussed with SHANIQUE Dick. Continue per consultants. July 18: Dialyzed July 16. Will order dialysis tomorrow July 19. Continues to be on ventilator through trach. No labs done today. Continue per consultants. July 17: Dialyzed yesterday. Stable from renal standpoint of view. Remains full code. Status post trach on vent. Status post PEG. Continue per consultants. July 16: Dialysis today. Will resume Midodrin to prevent hypotension. Patient remains full code. July 15: Dialyzed yesterday, due for dialysis tomorrow. Labs and medication list reviewed. Continue per consultants. Patient remains full code. COVID-19 detected again. July 14: Patient currently on dialysis. This is continuation of dialysis from yesterday as yesterday's dialysis was cut short due to catheter malfunction. Labs and medication reviewed. Continue per consultants. July 13: Patient currently on hemodialysis. The dialysis catheter which is a intrajugular Kamlesh has poor flow. Will try TPA. Continue per consultants. July 12: Due for PEG today. Due for dialysis tomorrow. Continue per consultants. Discussed with RN. July 11: Plan for dialysis today. Discussed with RN. Data reviewed. July 10: Plan for dialysis tomorrow July 11. Waiting for consent to proceed with PEG. Continue per consultants. Medication reviewed. Labs reviewed. Discussed with RN. July 09: Dialyzed yesterday. Labs reviewed. Medication reviewed. Next hemodialysis July 11. July 08: Patient has tracheostomy now. Connected to ventilator. Due for dialysis today. Continue per consultants. Discussed with SHANIQUE Romero. July 07: Patient is due for tracheostomy today. Patient was last dialyzed July 05. Will order dialysis for tomorrow. July 06: Patient is intubated on ventilator however the plan is to extubate today. Patient was dialysis yesterday July 05. The dialysis time was cut short due to patient's respiratory distress. Only 1 L was removed during dialysis yesterday. Today's lab reviewed. Continue per consultants. Will arrange for dialysis as needed. July 05: Patient due for dialysis today. Remains intubated. Will schedule permacath placement in a.m. blood cultures on July 04 are negative. July 04: Patient was dialyzed yesterday. Due for dialysis tomorrow. Continues to be intubated. After tomorrow's dialysis will order a permacath. July 03: Dialysis is about to be started now Continues to be intubated Will plan to remove the femoral dialysis catheter and exchanged for a new temporary catheter per ID recommendation We will check surveillance blood culture tomorrow July 02: Patient was dialyzed yesterday and due for dialysis tomorrow Stable from renal standpoint W on dialysis Continue per consultants, weaning....... etc. July 01: Dialysis today Other status unchanged June 30: Due for dialysis tomorrow Remains intubated on ventilator Labs and medication reviewed Discussed with RN Stable from renal standpoint of view June 29: Dialyzed yesterday Due for dialysis tomorrow Stable from renal standpoint to view Keeps failing weaning process June 28: Patient due for dialysis today Stable from renal standpoint to view Continue per consultants June 27: Labs reviewed Due due for dialysis June 28 Discussed with SHANIQUE Dick Continue per consultants Remains intubated on ventilator June 26 Labs reviewed Dialyzed yesterday Started on weaning today Continue to monitor renal parameters June 25: On dialysis now Potassium supplement implemented Continue per consultants Next dialysis June 27June 15: Status unchanged Dialyzed yesterday will dialyze again tomorrow Potassium supplements given Discussed with RN June 23: Due dialysis today Status: Remains intubated on ventilator June 22: Status unchanged Dialyzed yesterday and duefordialysistomorrow Serum sodium stable today June 21 Remains intubated on ventilator Due dialysis today Emphasized high sodium bath for dialysis June 20: Remains intubated on ventilator Dialyzed June 19 next dialysis June 21 Serum sodium 128, will give 250 cc 3% saline Remains full code Discussed with RN Iron panel ordered June 19: Discussed with RN. Patient due for dialysis today. Continue pulmonary support. Remains full code. June 18: Patient dialyzed yesterday June 17 Serum sodium improved but still low Arrange for dialysis tomorrow June 19 Continue per consultants June 17: Due for dialysis today Today's lab reviewed, low serum sodium noted, Emphasized on high sodium bath to dialysis nurse Discussed with SHANIQUE Yuen June 16: Dialyzed yesterday Remains intubated Labs reviewed, serum sodium 131 Plan to dialyze tomorrow June 17 with high sodium bath Discussed with SHANIQUE Yuen June 6: Due for dialysis today Labs reviewed Discussed with RN Transfuse 1 unit of packed RBCs today for low hemoglobin of 7.1 June 5: Blood pressure well maintained Receive dialysis June 13 next hemodialysis June 15June 4: Discussed with RN in ICU Patient did not receive proper dialysis yesterday due to dialysis catheter malfunction Catheter to be adjusted today and dialyzed to be resumed today Continue per consultants Positive for COVID 28 June 2: Patient now intubated on mechanical ventilation Discussed with SHANIQUE Yuen, today June 12 Patient received dialysis yesterday June 10 next hemodialysis June 12 Blood pressure better maintained Today's labs reviewed Continue per consultants Previously patient received dialysis last evening June 05, next dialysis June 07 which was incomplete due to patient's hypotension Will start on midodrine for blood pressure support. Meanwhile continue other pressors as needed Previously Patient is doing poorly, septic, white blood cells are rising, Hypotension somewhat improved We will keep n.p.o. , NG tube for medications, and change medication to IV as needed Patient remains full code Monitor vancomycin level Previously: Patient pulled out his femoral catheter yesterday June 03 which was reinserted by Dr. Mast Patient scheduled for dialysis again June 04, which again was not done due to dialysis nurse citing catheter malfunction Meanwhile continue management per ID, pulmonary , and psych. Meanwhile white blood cell count is rising. Patient blood pressure borderline low. Will check ABG Previously May 31 : I believe patient need dialysis treatment He however needs to competency assessment if can make decisions or not I will communicate with Dr. Mulligan Previously: Per pulmonary and ID advice Adjust blood pressure medication Renal diet Anemia work-up 2D echocardiogram refused Kidney ultrasound refused Jules catheter Urine studies Per orders Subjective ROS Limited/Unobtainable: Yes Objective Objective Last 24 Hour Vital Signs Date Time Temp Pulse Resp B/P (MAP) Pulse Ox O2 Delivery O2 Flow Rate FiO2 08/28/19 11:28 85 34 28 08/28/19 08:16 83 26 28 08/28/19 08:16 100 08/28/19 08:00 98.4 86 20 146/77 (100) 100 08/28/19 08:00 28 08/28/19 08:00 Mechanical Ventilator Mechanical Ventilator 08/28/19 08:00 84 08/28/19 07:29 79 27 28 28 08/28/19 04:00 98.2 87 20 144/64 (90) 100 08/28/19 04:00 Mechanical Ventilator Mechanical Ventilator 08/28/19 04:00 28 08/28/19 03:44 95 08/28/19 03:13 99 30 28 08/28/19 00:00 Mechanical Ventilator Mechanical Ventilator 08/28/19 00:00 98.9 100 18 146/64 (91) 99 08/27/19 22:49 73 26 28 08/27/19 21:06 92 34 28 08/27/19 20:00 98 08/27/19 20:00 28 08/27/19 20:00 98.2 100 20 154/85 (108) 98 08/27/19 20:00 Mechanical Ventilator Mechanical Ventilator 08/27/19 18:56 92 33 28 08/27/19 18:39 Mechanical Ventilator Mechanical Ventilator 08/27/19 16:00 28 08/27/19 16:00 Mechanical Ventilator Mechanical Ventilator 08/27/19 16:00 98.6 91 20 134/79 (97) 97 08/27/19 15:33 86 08/27/19 15:20 90 34 28 28 Intake and Output 08/27/19 08/28/19 19:00 07:00 Intake Total 680 ml 500 ml Balance 680 ml 500 ml Free Water 200 ml 60 ml Tube Feeding 480 ml 440 ml # Bowel Movements 3 4 No can panel today Laboratory Tests 08/27/19 23:17: POC Whole Blood Glucose 160H 08/28/19 05:35: POC Whole Blood Glucose 153H 08/28/19 11:55: POC Whole Blood Glucose 151H Height (Feet): 6 Height (Inches): 1.00 Weight (Pounds): 172 General Appearance: no apparent distress EENT: other - Trach to vent Cardiovascular: tachycardia Respiratory/Chest: decreased breath sounds Abdomen: soft Objective No change Mic Cole MD Aug 28, 2019 12:47
[2019-08-28 16:00] VITALS: BP 154/84
--- NOTE | 2019-08-28 16:01 | Surgery Progress Note ---
Surgery Progress Note Subjective Procedure Performed Insertion of left subclavian temporary hemodialysis catheter Tracheostomy exchange 8 Nigerian Shiley Additional Comments labs noted exam stable receiving HD today Objective Last 24 Hour Vital Signs Date Time Temp Pulse Resp B/P (MAP) Pulse Ox O2 Delivery O2 Flow Rate FiO2 08/28/19 15:09 80 30 28 08/28/19 12:00 28 08/28/19 12:00 98.1 93 20 146/87 (106) 100 08/28/19 12:00 88 08/28/19 12:00 Mechanical Ventilator Mechanical Ventilator 08/28/19 11:28 85 34 28 08/28/19 08:16 83 26 28 08/28/19 08:16 100 08/28/19 08:00 98.4 86 20 146/77 (100) 100 08/28/19 08:00 28 08/28/19 08:00 Mechanical Ventilator Mechanical Ventilator 08/28/19 08:00 84 08/28/19 07:29 79 27 28 28 08/28/19 04:00 98.2 87 20 144/64 (90) 100 08/28/19 04:00 Mechanical Ventilator Mechanical Ventilator 08/28/19 04:00 28 08/28/19 03:44 95 08/28/19 03:13 99 30 28 08/28/19 00:00 Mechanical Ventilator Mechanical Ventilator 08/28/19 00:00 98.9 100 18 146/64 (91) 99 08/27/19 22:49 73 26 28 08/27/19 21:06 92 34 28 08/27/19 20:00 98 08/27/19 20:00 28 08/27/19 20:00 98.2 100 20 154/85 (108) 98 08/27/19 20:00 Mechanical Ventilator Mechanical Ventilator 08/27/19 18:56 92 33 28 08/27/19 18:39 Mechanical Ventilator Mechanical Ventilator I&O Intake and Output 08/27/19 08/28/19 19:00 07:00 Intake Total 680 ml 500 ml Balance 680 ml 500 ml Free Water 200 ml 60 ml Tube Feeding 480 ml 440 ml # Bowel Movements 3 4 Dressing: other Wound: other Drains: other Cardiovascular: RSR Respiratory: decreased breath sounds Abdomen: soft, non-tender, present bowel sounds Extremities: no tenderness, no cyanosis Laboratory Tests Test 08/27/19 23:17 08/28/19 05:35 08/28/19 11:55 POC Whole Blood Glucose 160 MG/DL (74-106) H 153 MG/DL (74-106) H 151 MG/DL (74-106) H Plan Problems: (1) Suspected COVID-19 virus infection (2) HTN (hypertension) (3) CASSANDRA (acute kidney injury) Assessment & Plan: Needs urgent HD needs access patient okay and consented see note will follow with recs new line placed discussed with team and nephrology HD line functional when checked has TPA now please use appropriately Cathflo used again this flow during dialysis on 430 was low. Will monitor may need line change / plan for HD as per renal may need to take fluid off with HD edema anasarca dressings saturated and changed will monitor cont with HD IJ left line placed for HD given extent of prior line in place. leukocytosis blood cx negative may need to change out line new line okay HD going well Continue HD as tolerated May need pressors for HD as needed (4) Anemia in chronic kidney disease (CKD) (5) Anemia (6) Renal failure (7) Suspected COVID-19 virus infection Assessment & Plan: Pt deconditioned and despite all skin preventions Pt noted to have developed several pressure injuries. . Stable dry eschar noted to clefts of R and L ears. No erythema noted . DTPI noted to L trochanter. Base of injury is maroon in colour with marginal erythema along borders. Partially opened DTPI Sacrum, R and L Buttocks. Base of wound is maroon with two small open wounds L sacrum and L buttocks. Pt has an APM/MOMO Mattress overlay and is being positioned with pillows as per tolerance and within protocols. worsening despite medical efforts will cont to provide therapy Tx.Plan: Apply Cavilon Skin Barrier to both ears Daily and prn. Apply Moisture Barrier Paste to Sacrum,R and L Buttocks. Cover with Optifoam drsgs. Change every 3 days and PRN. Apply Cavilon Skin Barrier to R and L trochanter. Cover each site with Optifoam drsgs.Change every 7 days and PRN. Apply Cavilon Skin Barrier to both heels. Cover each heel with Optifoam drsg. Change every 7 days and prn. Off-load heels with pillow. Reposition at least every 2hours or as tolerated. APM/MOMO Mattress overlay. (8) COVID-19 Assessment & Plan: COVID + c diff negative febrile leukocytosis renal insufficiency see above cont resp care Rx as per ID worsening on vent support now cxr noted on pressors prognosis guarded repeat covid ++ weaning vent and pressors off slowly showing improvement slowly recovering will need trach as unable to wean vent safely called and spoke with country conservatorship. consent obtained s/p trach pending peg worsening on levo max (9) Sepsis Assessment & Plan: worsening leukocytosis febrile on pressors discussed with ID. lines evaluated and clean. he is septic on pressors and needs central access in difficult venous access patient blood cultures negative will monitor temp HD cath out now with permacath left tlc still subclavian needed line c/d/i line negative c diff negative wbc resolved improved d/c planning febrile leukocytosis hold d/c infectious work up in place yeast in cultures fevers persistent fungemia abx as per ID hold on line removal cont abx repeat cx Plan for line removal plan for line holiday will replace dialysis catheter PRN Hemodialysis line change August 20 Tracheostomy exchange 8 Nigerian Sharee due to balloon insufficiency August 20 Yaniv Mast Aug 28, 2019 16:01
--- NOTE | 2019-08-28 16:19 | Cardiac Electrophysiology PN ---
Assessment/Plan Assessment/Plan 1. NSTEMI type 2. Low level and flat due to renal failure. On Aspirin. EF 60%. 2. S/P Septic shock. On Abx and Midodrine 10 tid. 3. ESRD, on HD per Dr. Cole. S/P Left SC Kamlesh catheter placement by Dr Mast 4. VDRF due to COVID pneumonia. S/P Tracheostomy 07/08/19. 5. Atrial fib with RVR. Off Lopressor for Low BP, in SR 6. Dysphagia, S/P PEG 07/13/19 7. COPD. 8. Anemia. 9. Diarrhea 10. COVID19 pneumonia Positive: 05/27, 05/31 , 06/05, 06/09 ,06/17,06/19, 06/23, 06/27, 07/03, 07/15, 07/29 Negative: 07/26, 08/04, 08/05 DW RN Subjective Subjective In SDU on the vent via trach. Off pressors. Fio2 28%. Off isolation as Covid negative on 08/07/19. S/P subclavian Kamlesh catheter by Dr. Mast. Getting HD Objective Last 24 Hour Vital Signs Date Time Temp Pulse Resp B/P (MAP) Pulse Ox O2 Delivery O2 Flow Rate FiO2 08/28/19 15:09 80 30 28 08/28/19 12:00 28 08/28/19 12:00 98.1 93 20 146/87 (106) 100 08/28/19 12:00 88 08/28/19 12:00 Mechanical Ventilator Mechanical Ventilator 08/28/19 11:28 85 34 28 08/28/19 08:16 83 26 28 08/28/19 08:16 100 08/28/19 08:00 98.4 86 20 146/77 (100) 100 08/28/19 08:00 28 08/28/19 08:00 Mechanical Ventilator Mechanical Ventilator 08/28/19 08:00 84 08/28/19 07:29 79 27 28 28 08/28/19 04:00 98.2 87 20 144/64 (90) 100 08/28/19 04:00 Mechanical Ventilator Mechanical Ventilator 08/28/19 04:00 28 08/28/19 03:44 95 08/28/19 03:13 99 30 28 08/28/19 00:00 Mechanical Ventilator Mechanical Ventilator 08/28/19 00:00 98.9 100 18 146/64 (91) 99 08/27/19 22:49 73 26 28 08/27/19 21:06 92 34 28 08/27/19 20:00 98 08/27/19 20:00 28 08/27/19 20:00 98.2 100 20 154/85 (108) 98 08/27/19 20:00 Mechanical Ventilator Mechanical Ventilator 08/27/19 18:56 92 33 28 08/27/19 18:39 Mechanical Ventilator Mechanical Ventilator Intake and Output 08/27/19 08/28/19 19:00 07:00 Intake Total 680 ml 500 ml Balance 680 ml 500 ml Free Water 200 ml 60 ml Tube Feeding 480 ml 440 ml # Bowel Movements 3 4 Laboratory Tests Test 08/27/19 23:17 08/28/19 05:35 08/28/19 11:55 POC Whole Blood Glucose 160 MG/DL (74-106) H 153 MG/DL (74-106) H 151 MG/DL (74-106) H Objective HEAD AND NECK: No JVD. Tracheostomy in place. Left SC Kamlesh now in place. LUNGS: Decreased breath sounds. CARDIOVASCULAR: Regular S1 and S2. Tachycardic. ABDOMEN: Soft. PEG in place EXTREMITIES: No pitting edema. Gio Baker MD Aug 28, 2019 16:19
[2019-08-28 20:00] VITALS: BP 123/78
[2019-08-28] MEDS: Dyna-Hex 2% Top Sol 2oz TOPIC SCH (20:59)
--- NOTE | 2019-08-28 21:51 | General Progress Note ---
Assessment/Plan Problem List: (1) HTN (hypertension) ICD Codes: I10 - Essential (primary) hypertension SNOMED: 81985244 (2) CASSANDRA (acute kidney injury) ICD Codes: N17.9 - Acute kidney failure, unspecified SNOMED: 0740441, 99429378 (3) Anemia in chronic kidney disease (CKD) ICD Codes: N18.9 - Chronic kidney disease, unspecified; D63.1 - Anemia in chronic kidney disease SNOMED: 710255967 (4) Renal failure ICD Codes: N19 - Unspecified kidney failure SNOMED: 83278289 (5) Respiratory failure requiring intubation ICD Codes: J96.90 - Respiratory failure, unspecified, unspecified whether with hypoxia or hypercapnia; A41.89 - Other specified sepsis SNOMED: 578521626, 403053995 (6) Pneumonia due to COVID-19 virus ICD Codes: U07.1 - COVID-19; J12.89 - Other viral pneumonia SNOMED: 614236705, 449574126 (7) Sepsis due to severe acute respiratory syndrome coronavirus 2 (SARS-CoV-2) ICD Codes: U07.1 - COVID-19; A41.89 - Other specified sepsis SNOMED: 144432433, 562010967 Status: progressing, unchanged Assessment/Plan: trach and peg h/o covid .positive blood cx vitals holding leukocytosis improving Subjective ROS Limited/Unobtainable: Yes Allergies: Coded Allergies: No Known Allergies (Unverified , 05/28/19) Objective Last 24 Hour Vital Signs Date Time Temp Pulse Resp B/P (MAP) Pulse Ox O2 Delivery O2 Flow Rate FiO2 08/28/19 20:00 28 08/28/19 20:00 98.4 100 20 123/78 (93) 100 08/28/19 16:00 101 08/28/19 16:00 28 08/28/19 16:00 98.1 99 20 154/84 (107) 100 08/28/19 16:00 Mechanical Ventilator Mechanical Ventilator 08/28/19 15:09 80 30 28 08/28/19 12:00 28 08/28/19 12:00 98.1 93 20 146/87 (106) 100 08/28/19 12:00 88 08/28/19 12:00 Mechanical Ventilator Mechanical Ventilator 08/28/19 11:28 85 34 28 08/28/19 08:16 83 26 28 08/28/19 08:16 100 08/28/19 08:00 98.4 86 20 146/77 (100) 100 08/28/19 08:00 28 08/28/19 08:00 Mechanical Ventilator Mechanical Ventilator 08/28/19 08:00 84 08/28/19 07:29 79 27 28 28 08/28/19 04:00 98.2 87 20 144/64 (90) 100 08/28/19 04:00 Mechanical Ventilator Mechanical Ventilator 08/28/19 04:00 28 08/28/19 03:44 95 08/28/19 03:13 99 30 28 08/28/19 00:00 Mechanical Ventilator Mechanical Ventilator 08/28/19 00:00 98.9 100 18 146/64 (91) 99 08/27/19 22:49 73 26 28 Intake and Output 08/27/19 08/28/19 19:00 07:00 Intake Total 680 ml 540 ml Balance 680 ml 540 ml Free Water 200 ml 60 ml Tube Feeding 480 ml 480 ml # Bowel Movements 3 4 Laboratory Tests 08/27/19 23:17: POC Whole Blood Glucose 160H 08/28/19 05:35: POC Whole Blood Glucose 153H 08/28/19 11:55: POC Whole Blood Glucose 151H 08/28/19 16:47: POC Whole Blood Glucose 116H Height (Feet): 6 Height (Inches): 1.00 Weight (Pounds): 172 Karishma Mulligan MD Aug 28, 2019 21:51
[2019-08-29] VITALS: BP 128/88
[2019-08-29] MEDS: NovoLOG Insulin Flexpen SUBQ SCH ×4 (00:13→17:25)
[2019-08-29 04:00] VITALS: BP 133/81
[2019-08-29 06:23] LABS: ALANINE AMINOTRANSFERASE 15 U/L (12-78); ALBUMIN 2.7 G/DL (3.4-5.0); ALKALINE PHOSPHATASE 90 U/L (46-116); ANION GAP 11 mmol/L (5-15); ASPARTATE AMINO TRANSFERASE 22 U/L (15-37); BILIRUBIN,TOTAL 0.3 MG/DL (0.2-1.0); BLOOD UREA NITROGEN 26 mg/dL (7-18); CALCIUM 9.8 MG/DL (8.5-10.1); CARBON DIOXIDE 27 MMOL/L (21-32); CHLORIDE 101 MMOL/L (98-107); CREATININE 4.9 MG/DL (0.55-1.30); POTASSIUM 3.3 MMOL/L (3.5-5.1); SODIUM 138 MMOL/L (136-145)
[2019-08-29 06:28] LABS: HEMATOCRIT 28.4 % (42.0-52.0); HEMOGLOBIN 8.3 G/DL (14.2-18.0); MEAN CORPUSCULAR VOLUME 90 FL (80-99); PLATELET COUNT 419 K/UL (150-450); RED BLOOD COUNT 3.16 M/UL (4.70-6.10); RED CELL DISTRIBUTION WIDTH 17.9 % (11.6-14.8); WHITE BLOOD COUNT 5.6 K/UL (4.8-10.8)
[2019-08-29 06:35] LABS: PHOSPHORUS 2.3 MG/DL (2.5-4.9)
[2019-08-29 08:00] VITALS: BP 145/78
--- NOTE | 2019-08-29 08:11 | Pulmonolgy Critical Care Note ---
Critical Care - Asmt/Plan Assessment/Plan: Pulmonary Progress Note HPI: Patient is a 68 year old man, senior care resident, admitted c/o shortness of breath, cough, noted to have Covid 19 Pneumonia, Respiratory Failure Remains on Ventilator, CXR stable, mild interstitial prominence, 08/22 Anemia CKD on HD, will need eventual placement, repeat COVID19 test negative2019 (3 negative) Preserved EF FIO2 28%, P5, adequate O2 sats, remains on ACVC, tolerating CPAP PS 8 day, adequate ABG, s/p Tracheostomy previously, sp PEG, sp new HD line insertion ID following MRSA sputum Sp Trach change 08/20 Reviewed earlier on 08/28/2019 Past Medical History: COPD, CKD, Hypertension, Anemia Allergies: No Known Allergies Physical Exam Vital Signs Noted Stable on ventilator Chronically ill appearing HEENT: Trach CDI Chest: CTAB Hreart: HS1, HS2, RRR Abdomen: SNTND, Gtube Extremities: Wasted, no edema [employer]:No focal signs Impression: COVID-19 virus infection - now Covid negative Pneumonia Respiratory failure on ventilator, wean as tolerated CKD - on HD Previous NSTEMI Hypotension resolved Cardiomegaly Fungemia MRSA sputum COPD Chronic Kidney Disease - HD H/o Hypertension Anemia Plan: trach care as is Antibiotics per ID HD per renal monitor vitals AC - wean as tolerated, PS 8 AM PT eval, up in chair as tolerated anxiolytics if needed 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 PRN Monitor lab data nutrition feeds Hemodialysis per Renal impression, plan, and exam edited and reviewed in detail care discussed with RN Laboratory Tests Noted: CXR: No acute changes Subjective ROS Limited/Unobtainable: Yes Allergies: Coded Allergies: No Known Allergies (Unverified , 05/28/19) Critical Care - Objective Last 24 Hour Vital Signs Date Time Temp Pulse Resp B/P (MAP) Pulse Ox O2 Delivery O2 Flow Rate FiO2 08/29/19 08:00 28 08/29/19 08:00 Mechanical Ventilator Mechanical Ventilator 08/29/19 08:00 97.9 87 26 145/78 (100) 100 08/29/19 07:15 84 26 28 08/29/19 04:00 Mechanical Ventilator Mechanical Ventilator 08/29/19 04:00 83 08/29/19 04:00 97.5 83 26 133/81 (98) 100 7/19/20 04:00 28 08/29/19 03:30 90 29 28 08/29/19 00:00 Mechanical Ventilator Mechanical Ventilator 08/29/19 00:00 82 08/29/19 00:00 98.9 85 26 128/88 (101) 100 08/29/19 00:00 28 08/28/19 23:03 90 26 28 08/28/19 22:00 28 08/28/19 21:54 91 22 28 08/28/19 20:00 28 08/28/19 20:00 98.4 100 20 123/78 (93) 100 08/28/19 20:00 Mechanical Ventilator Mechanical Ventilator 08/28/19 20:00 97 08/28/19 19:00 88 27 28 08/28/19 16:00 101 08/28/19 16:00 28 08/28/19 16:00 98.1 99 20 154/84 (107) 100 08/28/19 16:00 Mechanical Ventilator Mechanical Ventilator 08/28/19 15:09 80 30 28 08/28/19 12:00 28 08/28/19 12:00 98.1 93 20 146/87 (106) 100 08/28/19 12:00 88 08/28/19 12:00 Mechanical Ventilator Mechanical Ventilator 08/28/19 11:28 85 34 28 08/28/19 08:16 83 26 28 08/28/19 08:16 100 Accucheck: 112 Critical Care - Subjective ROS Limited/Unobtainable: No Condition: stable FI02: 28 Vent Support Breath Rate: 26 Vent Support Mode: AC Vent Tidal Volume: 500 Sputum Amount: Large PEEP: 5.0 PIP: 28 Tube Feeding Amount: 40 I&O: Intake and Output 08/28/19 08/29/19 19:00 07:00 Intake Total 680 ml 600 ml Output Total 1000 ml 200 ml Balance -320 ml 400 ml Free Water 200 ml Tube Feeding 480 ml 480 ml Other 120 ml Output Urine Total 200 ml Hemodialysis UF 1000 ml # Bowel Movements 6 51 ET-Tube: 7.5 ET Position: 24 Arturo Mckeon MD Aug 29, 2019 08:11
[2019-08-29] MEDS: Midodrine 10mg tab NG SCH ×3 (08:26→17:25)
[2019-08-29] MEDS: Fluconazole 100mg tab NG SCH (08:26)
[2019-08-29] MEDS: Lomotil 2.5mg tab NG SCH ×2 (08:26→17:25)
[2019-08-29] MEDS: Enoxaparin 30mg Inj SUBQ SCH (08:28)
--- NOTE | 2019-08-29 08:38 | Hematology/Onc Progress Note ---
Assessment/Plan Assessment/Plan Assessment and Recs: # Anemia of chronic disease, likely related ot underlying kidney disease has COIVD19++++++ --> hgb trend 9-->8-->7.3-->7.9-->6.8->9.5-->10->8.3-->7.7-->7.1-->8.9->8.8->7.7 -->8.1 ->7.9-->7.7 -->8.2-->8.1 -->7.9-->8.5 -->9->9.2-->9.5-->10.7 -->9.8--> 10.2-->11.8 -->11.9-->8.8 ->9.4->9-->8.3 -->8.5-->9.4->9.8-->9-->8.3-->11.6--> 10.8-->10.5-->10->9.7->9.9->8.7->8.4->8-->8.5-->8-->8.3 --> transfuse as needed, hgb goal >7 --> no evidence of hemolysis --> peripheral smear has been reviewed --> epogen started 3 x a week ==>> transfuse 06/08, 06/15 # Leukocytosis likely related to suspected COVID-19 virus infection --> completed plaquenil --> trend smear as needed --> wbc trend: 4-->11-->14.5-->21-->26-->21->24--.28-->23-->19-->16.2-->21--> 11.2 -->12.5-->12.3-->12.4-->18.5-->18.5-->17->13-->18.2-->22.2-->25-->17.4-->17 -->14.2-->14-->16-->15.5-->9->17->11.5-->12->12-->18->15->9.8-->4.3-->5.6 --> pulm is aware --> on abx cefepime/vanc->zosyn/vanc-->dom/vanc-->dom-->levaquin/cefepime--> vanc/zosyn --> vanc --> pressors as needed --> 06/27 covid 19++ --> pressors as needed in icu --> c diff negative 08/08 --> blood cx++ # Thrombocytopenia/Lymphopenia --> likely related to covid19 --> plt 129k-->186k-->251-->285-->384 -->430-->539-->515-->447-->451-->404-->544 -->244 -->393 --> hep panel pending --> hiv negative # Respiratory failure with covid19+ --> s/p vent/trach --> weaning # Possible Pneumonia --> abx completed --> 07/13 cxr: Improved right lung infiltrates. # Cardiomegaly # Transaminitis with Elevated AST # COPD # Chronic Kidney Disease --> per renal hd --> s/p right femoral cath 07/02 # Hypertension # peg # Dvt ppx lovenox Appreciate consultation and ernesto Rn Subjective Constitutional: Denies: no symptoms, chills, fever, malaise, weakness, other Cardiovascular: Denies: no symptoms, chest pain, edema, irregular heart rate, lightheadedness, palpitations, syncope, other Respiratory: Denies: no symptoms, cough, shortness of breath, SOB with excertion, SOB at rest, sputum, wheezing, other Gastrointestinal/Abdominal: Denies: no symptoms, abdomen distended, abdominal pain, black stools, tarry stools, blood in stool, constipated, diarrhea, difficulty swallowing, nausea, poor appetite, poor fluid intake, rectal bleeding , vomiting, other Endocrine: Denies: no symptoms, excessive sweating, flushing, intolerance to cold, intolerance to heat, increased hunger, increased thirst, increased urine, unexplained weight gain, unexplained weight loss, other Hematologic/Lymphatic: Denies: no symptoms, anemia, easy bleeding, easy bruising, adenopathy, other Allergies: Coded Allergies: No Known Allergies (Unverified , 05/28/19) Subjective 06/01 nv, extremely agitated, not allowing labs draws, no night sweats, cbc ordered 06/02 confused, restraints, on abx and plaquenil, hgb 7.9, nrb 15 L 06/03 is with nonrebreather, but not compliant, remains confused 06/05 no bleeding, labs noted, no major bleeding, otherwise comfortable 06/06 labs reviewed, no bleeding, meds noted, no night sweats, on levo and nonrebreather 06/07 labs noted, no bleeding, meds reviewed, no bleeding, wbc higher 06/08 to get 2 units prbc, no night sweats, meds reviewed 06/09 is on cefepime and vanc, labs noted, ernesto Rn, no bleeding 06/10 no major changes, labs reviewed, wbc 28k, on abx, cefepime 06/12 remains in icu, labs noted, no night sweats or bleeding 06/13 sluggish pupils, remains agitated, per psych, no bleding, on vent, wbc sitll high 06/14 still confused, remains on vent, with ng, running nepro, on pressors 06/15 icu, febrile, non verbal, hgb 7.1, blood pending, completed plaq 06/16 remains in the icu, nonverbal, plan for hd tomorrow, ernesto rn 06/17 in icu, on pressor, nonverbal, on abx, no bleeding 06/19 no bleeding, nonverbal in icu, hgb is 7.7 06/20 on zosyn, tube feeds, vent, labs noted, in icu, nv 06/21 gettng hd as per renal, in icu, nv, no bleeding, tfs 06/22 icu, cxr with slight improvement, cooling blanket, weaning today 06/23 wewaning, in icu, on vent, abx, and pressors as needed, labs noted 06/24 failed weaning, off abx, completed plaquenil, hgb 8.1 06/26 icu, weaning for this am, afebrile, hgb 8 06/27 in icu, remains comotose, weaning started on peep, no night sweats 06/28 weaning today, off abx, restraints, no distress, h/h stable 06/29 covid 19+, failed weaning, no blood transfusion needed 06/30 icu, on vent, labs reviewed, no distress 07/01 in icu, may need trach, remains on hd per renal, labs noted 07/02 s/p right fem cath, failed wean, no new orders, h/h stable 07/03 is somewhat more responsive, on abx, no bleeding, weaning and HD today 07/04 hd as per renal, weaning off vent, no bleeding today 07/05 obtunded, no bleding overnight, with hd for tomorrow noted, vanc 07/08 no events, remains with trach/vent, ernesto Rn, no bleeding, cbc is noted 07/09 no overnight events, peg for friday pending consent 07/10 off pressors, vent, restraints, labs reviewed 07/11 no acute events is on pressors, intubated, agitated still 07/12 is resting comfortably, no bleeding, emds reviewed and noted 07/13 icu, no events, trach, cxr reviewed, 07/14 is onv ent, tachypneic and tachycardic, labs noted 07/15 remains confused, intubated, ernesto Rn, no bleeding 07/17 icu, cxr improving infiltrates, levo gtt, airborne/contact isolation 07/18 is on broad spectrum abx, is on levaquin and cefepime, wbc 16 agitated 07/19 icu, levo gtt, cxr unchanged, tachy, hd thursday 07/20 sedated, safety restraints, labs reviewed 07/21 hd was done yesterday, lower pressor requirements, wbc is worse, on abx 07/22 icu, meds and labs reviewed, vent, no distress 07/24 on vent, in icu, labs noted, remains agitated, and confused 07/25 remains obtunded, on vent, on pressor, hgb 9, wbc elev 07/26 icu, levo gtt, vent, iv abx, nonverbal 07/27 failed weaning, labs reviewed, repeat covid swab pending 07/28 labs are noted, no bleeding, on vent/trach gtube feeds ernesto rn 07/29 iuc, restraints, no new changes, vent 07/31 is asleep, comfortable, no events, labs reviewed, restraints+ 08/01 no events, agitated, no bleeding, meds noted, on gtube feeds 08/02 remains on vent, no bleeding, wbc higher 19, hgb 9, on abx 08/03 labs noted, on vent, no bleeding, wbc 17, hgb better 08/04 labs reviewed, no bleeding, does not require prbc, on vent 08/05 more alert, is on trach, vent, no major events, no bleeding, peg+ 08/07 no bleeding no chills, no night sweats, is on vent/trach 08/08 recent covid swab negative, restraints, cxr unchanged 08/09 c diff negative, zosyn, hd today, gtf 08/10 no overnight events, labs reviewed, afebrile 08/11 labs reviewed, meds noted, no fc, no major changes, wbc 12 08/12 abx changed to flucon, on abx, wbc 12 / bp on low end, blood cx++, vanc, vent 08/15 no bleeding, no night sweats, on abx, trach/vent 08/16 is able to nod head in response to question, labs noted, on vent/trach 08/17 labs reviewed, hgb 9.8, no bleeding, on abx, meds noted 08/18 labs noted, no bleeding, hgb stable, 9.9, mildly alert 08/19 labs are noted, no bleeding, meds reviewed, line holiday per surg 08/21 labs noted, meds reviewed, no bleeding hgb 8.7 08/22 labs reviewed, no bleeding, meds noted, no night sweats hgb 8.4 08/23 labs ar enoted, no bleeidng, hgb 8, no hemolysis, with rectal tube 08/24 labs reviewed, no bleeding, no night sweats, hgb 8 08/25 no events, hiv negative, hep panel pending, on vanc 08/26 remains confused, is on vent, no bleding, dw rn 08/28 is comfortable, no bleeding, dw rn, no night sweats Objective Objective Current Medications Medications (Trade) Dose Ordered Sig/Anthony Route PRN Reason Start Time Stop Time Status Last Admin Dose Admin Acetaminophen (Tylenol) 650 mg Q4H PRN NG For Pain 08/04/19 21:38 09/03/19 21:37 08/23/19 12:26 Acetaminophen (Tylenol) 650 mg Q4H PRN NG Temp >100.5 08/15/19 13:30 09/08/19 08:29 08/23/19 23:24 Chlorhexidine Gluconate (Michelle-Hex 2%) 1 applic DAILY@2000 TOPIC 08/21/19 20:00 11/19/19 19:59 08/28/19 20:59 Dextrose (Dextrose 50%) 25 ml Q30M PRN IV Hypoglycemia 08/04/19 22:00 09/18/19 19:29 Dextrose (Dextrose 50%) 50 ml Q30M PRN IV Hypoglycemia 08/04/19 22:00 09/18/19 19:29 Diphenoxylate HCl/ Atropine (Lomotil) 2.5 mg BID NG 08/24/19 18:00 09/17/19 17:59 08/29/19 08:26 Enoxaparin Sodium (Lovenox) 30 mg DAILY SUBQ 08/05/19 09:00 09/25/19 08:59 08/29/19 08:28 Epoetin Aftab (Epoetin Aftab(ESRD on dialysis)) 10,000 unit FRI-FRI-FRI SUBQ 08/11/19 21:00 11/09/19 20:59 08/27/19 20:51 Fluconazole (Diflucan) 200 mg DAILY NG 08/13/19 10:24 08/30/19 10:23 08/29/19 08:26 Haloperidol Lactate 5 mg/ Dextrose 56 ml @ 224 mls/hr Q6H PRN IVPB Agitation 08/04/19 21:38 09/18/19 21:37 08/19/19 02:26 Hydralazine HCl (Apresoline) 10 mg Q4H PRN IV Blood pressure over 160 systol 08/04/19 21:39 11/02/19 21:38 Insulin Aspart (NovoLOG) EVERY 6 HOURS SUBQ 08/05/19 00:00 09/19/19 00:00 08/29/19 00:13 Loperamide HCl (Imodium) 2 mg Q6H NG 08/18/19 14:00 09/15/19 13:59 08/29/19 07:46 Midodrine (Pro-Amatine) 10 mg THREE TIMES A DAY NG 08/15/19 18:00 11/13/19 17:59 08/26/19 18:09 Vancomycin HCl (Vanco pharmacy to dose) 1 ea DAILY PRN MISC Per rx protocol 08/15/19 08:45 09/14/19 08:44 Vancomycin HCl 500 mg/Dextrose 110 ml @ 110 mls/hr ONCE ONCE IVPB 08/29/19 09:00 08/29/19 09:59 Last 24 Hour Vital Signs Date Time Temp Pulse Resp B/P (MAP) Pulse Ox O2 Delivery O2 Flow Rate FiO2 08/29/19 08:00 28 08/29/19 08:00 Mechanical Ventilator Mechanical Ventilator 08/29/19 08:00 97.9 87 26 145/78 (100) 100 08/29/19 07:15 84 26 28 08/29/19 04:00 Mechanical Ventilator Mechanical Ventilator 08/29/19 04:00 83 08/29/19 04:00 97.5 83 26 133/81 (98) 100 08/29/19 04:00 28 08/29/19 03:30 90 29 28 08/29/19 00:00 Mechanical Ventilator Mechanical Ventilator 08/29/19 00:00 82 08/29/19 00:00 98.9 85 26 128/88 (101) 100 08/29/19 00:00 28 08/28/19 23:03 90 26 28 08/28/19 22:00 28 08/28/19 21:54 91 22 28 08/28/19 20:00 28 08/28/19 20:00 98.4 100 20 123/78 (93) 100 08/28/19 20:00 Mechanical Ventilator Mechanical Ventilator 08/28/19 20:00 97 08/28/19 19:00 88 27 28 08/28/19 16:00 101 08/28/19 16:00 28 08/28/19 16:00 98.1 99 20 154/84 (107) 100 08/28/19 16:00 Mechanical Ventilator Mechanical Ventilator 08/28/19 15:09 80 30 28 08/28/19 12:00 28 08/28/19 12:00 98.1 93 20 146/87 (106) 100 08/28/19 12:00 88 08/28/19 12:00 Mechanical Ventilator Mechanical Ventilator 08/28/19 11:28 85 34 28 08/28/19 08:16 83 26 28 08/28/19 08:16 100 08/28/19 08:00 98.4 86 20 146/77 (100) 100 08/28/19 08:00 28 08/28/19 08:00 Mechanical Ventilator Mechanical Ventilator 08/28/19 08:00 84 08/28/19 07:29 79 27 28 28 08/28/19 04:00 98.2 87 20 144/64 (90) 100 08/28/19 04:00 Mechanical Ventilator Mechanical Ventilator 08/28/19 04:00 28 08/28/19 03:44 95 08/28/19 03:13 99 30 28 08/28/19 00:00 Mechanical Ventilator Mechanical Ventilator 08/28/19 00:00 98.9 100 18 146/64 (91) 99 08/27/19 22:49 73 26 28 08/27/19 21:06 92 34 28 08/27/19 20:00 98 08/27/19 20:00 28 08/27/19 20:00 98.2 100 20 154/85 (108) 98 08/27/19 20:00 Mechanical Ventilator Mechanical Ventilator 08/27/19 18:56 92 33 28 08/27/19 18:39 Mechanical Ventilator Mechanical Ventilator 08/27/19 16:00 28 08/27/19 16:00 Mechanical Ventilator Mechanical Ventilator 08/27/19 16:00 98.6 91 20 134/79 (97) 97 08/27/19 15:33 86 08/27/19 15:20 90 34 28 28 08/27/19 12:00 Mechanical Ventilator Mechanical Ventilator 08/27/19 12:00 96.6 78 24 136/79 (98) 98 08/27/19 12:00 28 08/27/19 11:28 76 08/27/19 11:21 79 28 28 28 08/27/19 08:39 72 33 28 28 08/27/19 08:39 100 Intake and Output 08/28/19 08/29/19 19:00 07:00 Intake Total 680 ml 600 ml Output Total 1000 ml 200 ml Balance -320 ml 400 ml Free Water 200 ml Tube Feeding 480 ml 480 ml Other 120 ml Output Urine Total 200 ml Hemodialysis UF 1000 ml # Bowel Movements 6 51 Labs Test 08/26/19 08:45 08/26/19 12:26 08/26/19 18:10 08/27/19 00:22 White Blood Count 4.3 K/UL (4.8-10.8) Red Blood Count 3.18 M/UL (4.70-6.10) Hemoglobin 8.5 G/DL (14.2-18.0) Hematocrit 28.9 % (42.0-52.0) Mean Corpuscular Volume 91 FL (80-99) Mean Corpuscular Hemoglobin 26.6 PG (27.0-31.0) Mean Corpuscular Hemoglobin Concent 29.3 G/DL (32.0-36.0) Red Cell Distribution Width 17.8 % (11.6-14.8) Platelet Count 418 K/UL (150-450) Mean Platelet Volume 6.3 FL (6.5-10.1) Neutrophils (%) (Auto) % (45.0-75.0) Lymphocytes (%) (Auto) % (20.0-45.0) Monocytes (%) (Auto) % (1.0-10.0) Eosinophils (%) (Auto) % (0.0-3.0) Basophils (%) (Auto) % (0.0-2.0) Differential Total Cells Counted 100 Neutrophils % (Manual) 48 % (45-75) Lymphocytes % (Manual) 26 % (20-45) Monocytes % (Manual) 20 % (1-10) Eosinophils % (Manual) 5 % (0-3) Basophils % (Manual) 0 % (0-2) Band Neutrophils 1 % (0-8) Platelet Estimate Adequate Platelet Morphology Normal Hypochromasia 1+ Anisocytosis 1+ Sodium Level 141 MMOL/L (136-145) Potassium Level 3.1 MMOL/L (3.5-5.1) Chloride Level 101 MMOL/L (98-107) Carbon Dioxide Level 28 MMOL/L (21-32) Anion Gap 12 mmol/L (5-15) Blood Urea Nitrogen 42 mg/dL (7-18) Creatinine 5.7 MG/DL (0.55-1.30) Estimat Glomerular Filtration Rate 10.0 mL/min (>60) Glucose Level 158 MG/DL (74-106) Calcium Level 9.1 MG/DL (8.5-10.1) Phosphorus Level 2.6 MG/DL (2.5-4.9) Total Bilirubin 0.3 MG/DL (0.2-1.0) Aspartate Amino Transf (AST/SGOT) 19 U/L (15-37) Alanine Aminotransferase (ALT/SGPT) 12 U/L (12-78) Alkaline Phosphatase 98 U/L (46-116) C-Reactive Protein, Quantitative 15.7 mg/dL (0.00-0.90) Pro-B-Type Natriuretic Peptide > 69316 pg/mL (0-125) Total Protein 8.0 G/DL (6.4-8.2) Albumin 2.5 G/DL (3.4-5.0) Globulin 5.5 g/dL Albumin/Globulin Ratio 0.5 (1.0-2.7) Hepatitis A IgM Antibody Negative (Negative) Hepatitis B Surface Antigen Negative (Negative) Hepatitis B Core IgM Antibody Negative (Negative) Hepatitis C Antibody >11.0 s/co ratio Test 08/27/19 03:45 08/27/19 23:17 08/28/19 05:35 08/28/19 11:55 White Blood Count 4.0 K/UL (4.8-10.8) Red Blood Count 2.97 M/UL (4.70-6.10) Hemoglobin 8.0 G/DL (14.2-18.0) Hematocrit 26.9 % (42.0-52.0) Mean Corpuscular Volume 91 FL (80-99) Mean Corpuscular Hemoglobin 26.9 PG (27.0-31.0) Mean Corpuscular Hemoglobin Concent 29.7 G/DL (32.0-36.0) Red Cell Distribution Width 17.6 % (11.6-14.8) Platelet Count 441 K/UL (150-450) Mean Platelet Volume 6.0 FL (6.5-10.1) Neutrophils (%) (Auto) % (45.0-75.0) Lymphocytes (%) (Auto) % (20.0-45.0) Monocytes (%) (Auto) % (1.0-10.0) Eosinophils (%) (Auto) % (0.0-3.0) Basophils (%) (Auto) % (0.0-2.0) Sodium Level 140 MMOL/L (136-145) Potassium Level 3.7 MMOL/L (3.5-5.1) Chloride Level 101 MMOL/L (98-107) Carbon Dioxide Level 25 MMOL/L (21-32) Anion Gap 14 mmol/L (5-15) Blood Urea Nitrogen 50 mg/dL (7-18) Creatinine 6.7 MG/DL (0.55-1.30) Estimat Glomerular Filtration Rate 8.3 mL/min (>60) Glucose Level 163 MG/DL (74-106) Calcium Level 9.2 MG/DL (8.5-10.1) Phosphorus Level 3.4 MG/DL (2.5-4.9) Total Bilirubin 0.3 MG/DL (0.2-1.0) Aspartate Amino Transf (AST/SGOT) 15 U/L (15-37) Alanine Aminotransferase (ALT/SGPT) 9 U/L (12-78) Alkaline Phosphatase 96 U/L (46-116) Total Protein 7.9 G/DL (6.4-8.2) Albumin 2.5 G/DL (3.4-5.0) Globulin 5.4 g/dL Albumin/Globulin Ratio 0.5 (1.0-2.7) Random Vancomycin Level 22.7 ug/mL POC Whole Blood Glucose 160 MG/DL (74-106) 153 MG/DL (74-106) 151 MG/DL (74-106) Test 08/28/19 16:47 08/29/19 05:42 08/29/19 06:26 POC Whole Blood Glucose 116 MG/DL (74-106) White Blood Count 5.6 K/UL (4.8-10.8) Red Blood Count 3.16 M/UL (4.70-6.10) Hemoglobin 8.3 G/DL (14.2-18.0) Hematocrit 28.4 % (42.0-52.0) Mean Corpuscular Volume 90 FL (80-99) Mean Corpuscular Hemoglobin 26.4 PG (27.0-31.0) Mean Corpuscular Hemoglobin Concent 29.4 G/DL (32.0-36.0) Red Cell Distribution Width 17.9 % (11.6-14.8) Platelet Count 419 K/UL (150-450) Mean Platelet Volume 6.3 FL (6.5-10.1) Neutrophils (%) (Auto) % (45.0-75.0) Lymphocytes (%) (Auto) % (20.0-45.0) Monocytes (%) (Auto) % (1.0-10.0) Eosinophils (%) (Auto) % (0.0-3.0) Basophils (%) (Auto) % (0.0-2.0) Sodium Level 138 MMOL/L (136-145) Potassium Level 3.3 MMOL/L (3.5-5.1) Chloride Level 101 MMOL/L (98-107) Carbon Dioxide Level 27 MMOL/L (21-32) Anion Gap 11 mmol/L (5-15) Blood Urea Nitrogen 26 mg/dL (7-18) Creatinine 4.9 MG/DL (0.55-1.30) Estimat Glomerular Filtration Rate 11.9 mL/min (>60) Glucose Level 112 MG/DL (74-106) Calcium Level 9.8 MG/DL (8.5-10.1) Phosphorus Level 2.3 MG/DL (2.5-4.9) Magnesium Level 2.0 MG/DL (1.8-2.4) Total Bilirubin 0.3 MG/DL (0.2-1.0) Aspartate Amino Transf (AST/SGOT) 22 U/L (15-37) Alanine Aminotransferase (ALT/SGPT) 15 U/L (12-78) Alkaline Phosphatase 90 U/L (46-116) Total Protein 8.4 G/DL (6.4-8.2) Albumin 2.7 G/DL (3.4-5.0) Globulin 5.7 g/dL Random Vancomycin Level 20.0 ug/mL Height (Feet): 6 Height (Inches): 1.00 Weight (Pounds): 158 Objective General: nv, confused, sedated Heent: bilateral eye normal inspection, bilateral eye PERRL ++Ng Respiratory: normal breath sounds, no respiratory distress, intubated/vent +++ trach+++ Cardiovascular: regular rate, rhythm, no edema Gastrointestinal: normal inspection, soft, non-distended, peg+ Rectal: deferred Musculoskeletal: normal range of motion, non-tender, R fem cath++ Neurologic: alert, motor strength/tone normal, sensory intact, responsive, speech normal Skin: Decubitus/Ulcer - See RN skin exam. : jamaal+ Greg Cabral MD Aug 29, 2019 08:38
[2019-08-29] MEDS ORDERED: Vancomycin 500mg/D5W 110ml IVPB ONE ×2 (09:00)
--- NOTE | 2019-08-29 10:23 | Nephrology Progress Note ---
Assessment/Plan Problem List: (1) CASSANDRA (acute kidney injury) (2) Anemia in chronic kidney disease (CKD) (3) HTN (hypertension) (4) COVID-19 Assessment Acute renal failure most likely superimposed on chronic kidney disease Suspected COVID-19 virus infection Possible Pneumonia, lymphopenia, elevated AST Cardiomegaly, possible CHF COPD Hypertension Anemia, most likely related to chronic kidney disease Plan August 28: Dialyzed yesterday August 27. Today's labs reviewed. Potassium supplement given. Aim to dialyse on August 30 next. August 27: Dialysis today. Blood pressure stable. No labs drawn today. Continue per consultants. August 26: Dialysis tomorrow August 27. Blood pressure is stable. Aim to ultrafiltrate 1 L. Labs reviewed. Continue per consultants. August 25: Dialyzed yesterday. No UF. Blood pressure is stable. Potassium supplement given. Next hemodialysis planned for August 27. Will order sooner if needed. August 24: No chemistry panel today. Due for dialysis today. Blood pressure stable. August 23: Labs reviewed. Potassium supplement given. Blood pressure is stable. Due for dialysis tomorrow. No ultrafiltration will be done. August 22: Patient was dialyzed yesterday. Pressure low today. 500 cc albumin ordered. Continue to monitor renal parameters. Continue to be on Midodrin. August 21: A temporary catheter for dialysis was put in yesterday, and the patient is due for dialysis today. Continue per consultants. August 20: Patient due for insertion of a temporary dialysis catheter. I ordered dialysis for tomorrow August 21. Continue per consultants. Discussed with RN"Janice " August 19: Permacath discontinued. Due for temporary non-tunneled dialysis access. White blood cells are up to over 14,000. Will dialyze as needed. August 18: Discussed with ID and general surgery. Will remove the permacath which is thought to be infected by IR today. Will monitor renal parameters. Will obtain surveillance cultures tomorrow. Will attempt to put a temporary dialysis access in 48 to 72 hours for dialysis purposes. August 17: Last dialysis August 15, no blood work done today yet. Will reassess if dialysis should be continued. Continue per current management. We will make arrangement to DC permacath and reinsert a new one via general surgery and or interventional radiology August 16: Albumin for low BP. Continue to monitor renal parameters. August 15: Due for dialysis today. Remains borderline low. No ultrafiltration during dialysis. Discussed with SHANIQUE Macdonald. August 14: No labs done today. Patient hypotensive. Normal saline and albumin bolus given. Midodrin started. Will check lab tomorrow. August 13: Lab reviewed. Last dialysis yesterday. Next dialysis August 15. Potassium and phosphorus supplement given. Continue per consultants. August 12: No can panel done today. Due for dialysis today. Continue per consultants. August 11: Patient labs reviewed. Will order dialysis tomorrow. Continue per consultants. August 10: Patient was dialyzed yesterday. Today's labs checked. Stable from renal standpoint to view August 09: Patient scheduled for hemodialysis today. Will check labs tomorrow. August 08: Lab reviewed. Hemodialysis scheduled for tomorrow. August 07: Dialyzed yesterday. No labs drawn today. Will check labs tomorrow. Continue per consultants. August 06: Patient on dialysis now. Discussed with dialysis nurse. Slight catheter malfunction persist. August 05: Labs reviewed. Dialysis scheduled for tomorrow. Continue per consultants. August 04: No labs done today. Dialyzed yesterday. Check labs tomorrow. Continue per consultants. August 03: Lab reviewed. Due for dialysis today. White blood cell 17,500. August 02: Lab reviewed. Low phosphorus replaced. Hemodialysis ordered for tomorrow. White blood cells over 18,000. August 01: Labs reviewed. Potassium replacement ordered. Remains full code on ventilator via trach. Continue per consultants. July 31: Dialyzed yesterday. No can panel today. Remains full code. Remains on ventilator. Being fed through PEG. Continue per consultants. July 30: Patient due for dialysis today. Labs are reviewed. Remains full code. Status post trach to ventilator. Status post PEG. July 29: Patient dialyzed yesterday. Due for dialysis tomorrow. Remains in ICU. Full code. Status post trach tube to ventilator. Status post PEG. July 28: Due for dialysis today. Labs reviewed. Full code. Patient trached and vented. July 27: Last COVID test negative. COVID test will be repeated tomorrow. Will order dialysis tomorrow. Remains full code. Medication list and labs reviewed. July 26: No labs done today. Dialysis done yesterday. Will check lab tomorrow. Dialysis as needed. July 25: Lab reviewed. Dialysis today. Discussed with RN. July 24: Lab reviewed. Do dialysis tomorrow. Discussed with RN. July 23: Lab reviewed. Dialyzed yesterday. Discussed with RN. Remains full code. Next dialysis July 25. Will check labs tomorrow. July 22: Labs reviewed. Due for dialysis today. Discussed with RN. Watch borderline low blood pressure. Discussed with dialysis nurse. July 21: Today's lab reviewed. Will arrange for dialysis tomorrow. Discussed with RN. Aim to keep the blood pressure above 100 systolic. Continue per consultants. July 20: Patient was dialyzed yesterday. Could not ultrafiltrate much due to low blood pressure. Discussed with SHANIQUE Dick today. No labs drawn today. Continue per consultants. July 19: Due for dialysis today. Discussed with SHANIQUE Dick. Continue per consultants. July 18: Dialyzed July 16. Will order dialysis tomorrow July 19. Continues to be on ventilator through trach. No labs done today. Continue per consultants. July 17: Dialyzed yesterday. Stable from renal standpoint of view. Remains full code. Status post trach on vent. Status post PEG. Continue per consultants. July 16: Dialysis today. Will resume Midodrin to prevent hypotension. Patient remains full code. July 15: Dialyzed yesterday, due for dialysis tomorrow. Labs and medication list reviewed. Continue per consultants. Patient remains full code. COVID-19 detected again. July 14: Patient currently on dialysis. This is continuation of dialysis from yesterday as yesterday's dialysis was cut short due to catheter malfunction. Labs and medication reviewed. Continue per consultants. July 13: Patient currently on hemodialysis. The dialysis catheter which is a intrajugular Kamlesh has poor flow. Will try TPA. Continue per consultants. July 12: Due for PEG today. Due for dialysis tomorrow. Continue per consultants. Discussed with RN. July 11: Plan for dialysis today. Discussed with RN. Data reviewed. July 10: Plan for dialysis tomorrow July 11. Waiting for consent to proceed with PEG. Continue per consultants. Medication reviewed. Labs reviewed. Discussed with RN. July 09: Dialyzed yesterday. Labs reviewed. Medication reviewed. Next hemodialysis July 11. July 08: Patient has tracheostomy now. Connected to ventilator. Due for dialysis today. Continue per consultants. Discussed with SHANIQUE Romero. July 07: Patient is due for tracheostomy today. Patient was last dialyzed July 05. Will order dialysis for tomorrow. July 06: Patient is intubated on ventilator however the plan is to extubate today. Patient was dialysis yesterday July 05. The dialysis time was cut short due to patient's respiratory distress. Only 1 L was removed during dialysis yesterday. Today's lab reviewed. Continue per consultants. Will arrange for dialysis as needed. July 05: Patient due for dialysis today. Remains intubated. Will schedule permacath placement in a.m. blood cultures on July 04 are negative. July 04: Patient was dialyzed yesterday. Due for dialysis tomorrow. Continues to be intubated. After tomorrow's dialysis will order a permacath. July 03: Dialysis is about to be started now Continues to be intubated Will plan to remove the femoral dialysis catheter and exchanged for a new temporary catheter per ID recommendation We will check surveillance blood culture tomorrow July 02: Patient was dialyzed yesterday and due for dialysis tomorrow Stable from renal standpoint W on dialysis Continue per consultants, weaning....... etc. July 01: Dialysis today Other status unchanged June 30: Due for dialysis tomorrow Remains intubated on ventilator Labs and medication reviewed Discussed with SHANIQUE Stable from renal standpoint of view June 29: Dialyzed yesterday Due for dialysis tomorrow Stable from renal standpoint to view Keeps failing weaning process June 28: Patient due for dialysis today Stable from renal standpoint to view Continue per consultants June 27: Labs reviewed Due due for dialysis June 28 Discussed with SHANIQUE Dick Continue per consultants Remains intubated on ventilator June 26 Labs reviewed Dialyzed yesterday Started on weaning today Continue to monitor renal parameters June 25: On dialysis now Potassium supplement implemented Continue per consultants Next dialysis June 27June 15: Status unchanged Dialyzed yesterday will dialyze again tomorrow Potassium supplements given Discussed with RN June 23: Due dialysis today Status: Remains intubated on ventilator June 22: Status unchanged Dialyzed yesterday and duefordialysistomorrow Serum sodium stable today June 21 Remains intubated on ventilator Due dialysis today Emphasized high sodium bath for dialysis June 20: Remains intubated on ventilator Dialyzed June 19 next dialysis June 21 Serum sodium 128, will give 250 cc 3% saline Remains full code Discussed with RN Iron panel ordered June 19: Discussed with RN. Patient due for dialysis today. Continue pulmonary support. Remains full code. June 18: Patient dialyzed yesterday June 17 Serum sodium improved but still low Arrange for dialysis tomorrow June 19 Continue per consultants June 17: Due for dialysis today Today's lab reviewed, low serum sodium noted, Emphasized on high sodium bath to dialysis nurse Discussed with SHANIQUE Yuen June 16: Dialyzed yesterday Remains intubated Labs reviewed, serum sodium 131 Plan to dialyze tomorrow June 17 with high sodium bath Discussed with SHANIQUE Yuen June 15: Due for dialysis today Labs reviewed Discussed with RN Transfuse 1 unit of packed RBCs today for low hemoglobin of 7.1 June 5: Blood pressure well maintained Receive dialysis June 13 next hemodialysis June 15June 4: Discussed with RN in ICU Patient did not receive proper dialysis yesterday due to dialysis catheter malfunction Catheter to be adjusted today and dialyzed to be resumed today Continue per consultants Positive for COVID 28 June 2: Patient now intubated on mechanical ventilation Discussed with SHANIQUE Yuen, today June 12 Patient received dialysis yesterday June 10 next hemodialysis June 12 Blood pressure better maintained Today's labs reviewed Continue per consultants Previously patient received dialysis last evening June 05, next dialysis June 07 which was incomplete due to patient's hypotension Will start on midodrine for blood pressure support. Meanwhile continue other pressors as needed Previously Patient is doing poorly, septic, white blood cells are rising, Hypotension somewhat improved We will keep n.p.o. , NG tube for medications, and change medication to IV as needed Patient remains full code Monitor vancomycin level Previously: Patient pulled out his femoral catheter yesterday June 03 which was reinserted by Dr. Mast Patient scheduled for dialysis again June 04, which again was not done due to dialysis nurse citing catheter malfunction Meanwhile continue management per ID, pulmonary , and psych. Meanwhile white blood cell count is rising. Patient blood pressure borderline low. Will check ABG Previously May 31 : I believe patient need dialysis treatment He however needs to competency assessment if can make decisions or not I will communicate with Dr. Mulligan Previously: Per pulmonary and ID advice Adjust blood pressure medication Renal diet Anemia work-up 2D echocardiogram refused Kidney ultrasound refused Jules catheter Urine studies Per orders Subjective ROS Limited/Unobtainable: Yes Objective Objective Last 24 Hour Vital Signs Date Time Temp Pulse Resp B/P (MAP) Pulse Ox O2 Delivery O2 Flow Rate FiO2 08/29/19 08:00 28 08/29/19 08:00 82 08/29/19 08:00 Mechanical Ventilator Mechanical Ventilator 08/29/19 08:00 97.9 87 26 145/78 (100) 100 08/29/19 07:15 84 26 28 08/29/19 04:00 Mechanical Ventilator Mechanical Ventilator 08/29/19 04:00 83 08/29/19 04:00 97.5 83 26 133/81 (98) 100 08/29/19 04:00 28 08/29/19 03:30 90 29 28 08/29/19 00:00 Mechanical Ventilator Mechanical Ventilator 08/29/19 00:00 82 08/29/19 00:00 98.9 85 26 128/88 (101) 100 08/29/19 00:00 28 08/28/19 23:03 90 26 28 08/28/19 22:00 28 08/28/19 21:54 91 22 28 08/28/19 20:00 28 08/28/19 20:00 98.4 100 20 123/78 (93) 100 08/28/19 20:00 Mechanical Ventilator Mechanical Ventilator 08/28/19 20:00 97 08/28/19 19:00 88 27 28 08/28/19 16:00 101 08/28/19 16:00 28 08/28/19 16:00 98.1 99 20 154/84 (107) 100 08/28/19 16:00 Mechanical Ventilator Mechanical Ventilator 08/28/19 15:09 80 30 28 08/28/19 12:00 28 08/28/19 12:00 98.1 93 20 146/87 (106) 100 08/28/19 12:00 88 08/28/19 12:00 Mechanical Ventilator Mechanical Ventilator 08/28/19 11:28 85 34 28 Intake and Output 08/28/19 08/29/19 18:59 06:59 Intake Total 680 ml 600 ml Output Total 1000 ml 200 ml Balance -320 ml 400 ml Free Water 200 ml Tube Feeding 480 ml 480 ml Other 120 ml Output Urine Total 200 ml Hemodialysis UF 1000 ml # Bowel Movements 6 51 Laboratory Tests 08/28/19 11:55: POC Whole Blood Glucose 151H 08/28/19 16:47: POC Whole Blood Glucose 116H 08/29/19 05:42: White Blood Count 5.6, Red Blood Count 3.16L, Hemoglobin 8.3L, Hematocrit 28.4L , Mean Corpuscular Volume 90, Mean Corpuscular Hemoglobin 26.4L, Mean Corpuscular Hemoglobin Concent 29.4L, Red Cell Distribution Width 17.9H, Platelet Count 419, Mean Platelet Volume 6.3L, Neutrophils (%) (Auto) , Lymphocytes (%) (Auto) , Monocytes (%) (Auto) , Eosinophils (%) (Auto) , Basophils (%) (Auto) , Differential Total Cells Counted 100, Neutrophils % ( Manual) 30L, Lymphocytes % (Manual) 40, Monocytes % (Manual) 25H, Eosinophils % (Manual) 5H, Basophils % (Manual) 0, Band Neutrophils 0, Nucleated Red Blood Cells 1, Platelet Estimate Adequate, Platelet Morphology Normal, Hypochromasia 2 +, Anisocytosis 1+, Sodium Level 138, Potassium Level 3.3L, Chloride Level 101, Carbon Dioxide Level 27, Anion Gap 11, Blood Urea Nitrogen 26H, Creatinine 4.9H , Estimat Glomerular Filtration Rate 11.9, Glucose Level 112H, Calcium Level 9.8 , Phosphorus Level 2.3L, Magnesium Level 2.0, Total Bilirubin 0.3, Aspartate Amino Transf (AST/SGOT) 22, Alanine Aminotransferase (ALT/SGPT) 15, Alkaline Phosphatase 90, Total Protein 8.4H, Albumin 2.7L, Globulin 5.7, Random Vancomycin Level 20.0 08/29/19 06:26: POC Whole Blood Glucose [Pending] Height (Feet): 6 Height (Inches): 1.00 Weight (Pounds): 158 General Appearance: no apparent distress Neck: other - Trach to vent Cardiovascular: other - Variable rate Respiratory/Chest: decreased breath sounds Abdomen: distended Objective No change Mic Cole MD Aug 29, 2019 10:23
[2019-08-29] MEDS ORDERED: Potassium Phosphate 20 MM in NS 275 ML IV ONE (10:30)
--- NOTE | 2019-08-29 10:37 | Infectious Diseases Prog Note ---
Assessment/Plan Assessment/Plan IMPRESSION: 1. COVID19 pneumonia Positive: 05/27, 05/31 , 06/05, 06/09 ,5, 5, 06/23, 06/27, 07/03, 07/15, 07/29 Negative: 07/26, 08/04, 08/05,08/24 2. MRSA carrier. 3. Chronic kidney disease , end-stage renal disease. 4. COPD. 5. Hypertension. 6. Anemia. 7. Hypothyroidism. 8. Hyperlipidemia. 9. Major depression. 10. Leukocytosis resolved 11. Hypotension 12. Hepatitis C 13. Hyperuricemia 14. Diarrhea, C difficile negative 15. septic shock 16.Sepsis blood cultures 08/08 & 08/12 : yeast blood culture: Staph Coagulase negative 17. Pneumonia with Staph aureus ( MRSA) 18. Candidal sepsis 19. Diarrhea, C. difficile negative RECOMMENDATIONS: continue Fluconazole & Vancomycin Subjective ROS Limited/Unobtainable: Yes Constitutional: Denies: fever Allergies: Coded Allergies: No Known Allergies (Unverified , 05/28/19) Objective Last 24 Hour Vital Signs Date Time Temp Pulse Resp B/P (MAP) Pulse Ox O2 Delivery O2 Flow Rate FiO2 08/29/19 08:00 28 08/29/19 08:00 82 08/29/19 08:00 Mechanical Ventilator Mechanical Ventilator 08/29/19 08:00 97.9 87 26 145/78 (100) 100 08/29/19 07:15 84 26 28 08/29/19 04:00 Mechanical Ventilator Mechanical Ventilator 08/29/19 04:00 83 08/29/19 04:00 97.5 83 26 133/81 (98) 100 08/29/19 04:00 28 08/29/19 03:30 90 29 28 08/29/19 00:00 Mechanical Ventilator Mechanical Ventilator 08/29/19 00:00 82 08/29/19 00:00 98.9 85 26 128/88 (101) 100 08/29/19 00:00 28 08/28/19 23:03 90 26 28 08/28/19 22:00 28 08/28/19 21:54 91 22 28 08/28/19 20:00 28 08/28/19 20:00 98.4 100 20 123/78 (93) 100 08/28/19 20:00 Mechanical Ventilator Mechanical Ventilator 08/28/19 20:00 97 08/28/19 19:00 88 27 28 08/28/19 16:00 101 08/28/19 16:00 28 08/28/19 16:00 98.1 99 20 154/84 (107) 100 08/28/19 16:00 Mechanical Ventilator Mechanical Ventilator 08/28/19 15:09 80 30 28 08/28/19 12:00 28 08/28/19 12:00 98.1 93 20 146/87 (106) 100 08/28/19 12:00 88 08/28/19 12:00 Mechanical Ventilator Mechanical Ventilator 08/28/19 11:28 85 34 28 Height (Feet): 6 Height (Inches): 1.00 Weight (Pounds): 158 General Appearance: no acute distress HEENT: status post trach Respiratory/Chest: other - on ventilator Cardiovascular: normal rate Abdomen: soft, non tender, other - GT feeding Neurologic/Psychiatric: disoriented Laboratory Tests Test 08/28/19 11:55 08/28/19 16:47 08/29/19 05:42 08/29/19 06:26 POC Whole Blood Glucose 151 MG/DL (74-106) H 116 MG/DL (74-106) H Pending White Blood Count 5.6 K/UL (4.8-10.8) Red Blood Count 3.16 M/UL (4.70-6.10) L Hemoglobin 8.3 G/DL (14.2-18.0) L Hematocrit 28.4 % (42.0-52.0) L Mean Corpuscular Volume 90 FL (80-99) Mean Corpuscular Hemoglobin 26.4 PG (27.0-31.0) L Mean Corpuscular Hemoglobin Concent 29.4 G/DL (32.0-36.0) L Red Cell Distribution Width 17.9 % (11.6-14.8) H Platelet Count 419 K/UL (150-450) Mean Platelet Volume 6.3 FL (6.5-10.1) L Neutrophils (%) (Auto) % (45.0-75.0) Lymphocytes (%) (Auto) % (20.0-45.0) Monocytes (%) (Auto) % (1.0-10.0) Eosinophils (%) (Auto) % (0.0-3.0) Basophils (%) (Auto) % (0.0-2.0) Differential Total Cells Counted 100 Neutrophils % (Manual) 30 % (45-75) L Lymphocytes % (Manual) 40 % (20-45) Monocytes % (Manual) 25 % (1-10) H Eosinophils % (Manual) 5 % (0-3) H Basophils % (Manual) 0 % (0-2) Band Neutrophils 0 % (0-8) Nucleated Red Blood Cells 1 /100 WBC Platelet Estimate Adequate Platelet Morphology Normal Hypochromasia 2+ Anisocytosis 1+ Sodium Level 138 MMOL/L (136-145) Potassium Level 3.3 MMOL/L (3.5-5.1) L Chloride Level 101 MMOL/L (98-107) Carbon Dioxide Level 27 MMOL/L (21-32) Anion Gap 11 mmol/L (5-15) Blood Urea Nitrogen 26 mg/dL (7-18) H Creatinine 4.9 MG/DL (0.55-1.30) H Estimat Glomerular Filtration Rate 11.9 mL/min (>60) Glucose Level 112 MG/DL (74-106) H Calcium Level 9.8 MG/DL (8.5-10.1) Phosphorus Level 2.3 MG/DL (2.5-4.9) L Magnesium Level 2.0 MG/DL (1.8-2.4) Total Bilirubin 0.3 MG/DL (0.2-1.0) Aspartate Amino Transf (AST/SGOT) 22 U/L (15-37) Alanine Aminotransferase (ALT/SGPT) 15 U/L (12-78) Alkaline Phosphatase 90 U/L (46-116) Total Protein 8.4 G/DL (6.4-8.2) H Albumin 2.7 G/DL (3.4-5.0) L Globulin 5.7 g/dL Random Vancomycin Level 20.0 ug/mL Current Medications Medications (Trade) Dose Ordered Sig/Anthony Route PRN Reason Start Time Stop Time Status Last Admin Dose Admin Acetaminophen (Tylenol) 650 mg Q4H PRN NG For Pain 08/04/19 21:38 09/03/19 21:37 08/23/19 12:26 Acetaminophen (Tylenol) 650 mg Q4H PRN NG Temp >100.5 08/15/19 13:30 09/08/19 08:29 08/23/19 23:24 Chlorhexidine Gluconate (Michelle-Hex 2%) 1 applic DAILY@2000 TOPIC 08/21/19 20:00 11/19/19 19:59 08/28/19 20:59 Dextrose (Dextrose 50%) 25 ml Q30M PRN IV Hypoglycemia 08/04/19 22:00 09/18/19 19:29 Dextrose (Dextrose 50%) 50 ml Q30M PRN IV Hypoglycemia 08/04/19 22:00 09/18/19 19:29 Diphenoxylate HCl/ Atropine (Lomotil) 2.5 mg BID NG 08/24/19 18:00 09/17/19 17:59 08/29/19 08:26 Enoxaparin Sodium (Lovenox) 30 mg DAILY SUBQ 08/05/19 09:00 09/25/19 08:59 08/29/19 08:28 Epoetin Aftab (Epoetin Aftab(ESRD on dialysis)) 10,000 unit SUBQ 08/11/19 21:00 11/09/19 20:59 08/27/19 20:51 Fluconazole (Diflucan) 200 mg DAILY NG 08/13/19 10:24 08/30/19 10:23 08/29/19 08:26 Haloperidol Lactate 5 mg/ Dextrose 56 ml @ 224 mls/hr Q6H PRN IVPB Agitation 08/04/19 21:38 09/18/19 21:37 08/19/19 02:26 Hydralazine HCl (Apresoline) 10 mg Q4H PRN IV Blood pressure over 160 systol 08/04/19 21:39 11/02/19 21:38 Insulin Aspart (NovoLOG) EVERY 6 HOURS SUBQ 08/05/19 00:00 09/19/19 00:00 08/29/19 00:13 Loperamide HCl (Imodium) 2 mg Q6H NG 08/18/19 14:00 09/15/19 13:59 08/29/19 07:46 Midodrine (Pro-Amatine) 10 mg THREE TIMES A DAY NG 08/15/19 18:00 11/13/19 17:59 08/26/19 18:09 Potassium Phosphate 20 mm/ Sodium Chloride 281.6667 ml @ 46.944 m... ONCE ONCE IV 08/29/19 10:30 08/29/19 16:29 08/29/19 10:13 Vancomycin HCl (Vanco pharmacy to dose) 1 ea DAILY PRN MISC Per rx protocol 08/15/19 08:45 09/14/19 08:44 Ted Leyva MD Aug 29, 2019 10:37
[2019-08-29 12:00] VITALS: BP 126/79
[2019-08-29] MEDS ORDERED: NS 275ml ONE (13:22)
[2019-08-29] MEDS ORDERED: Tubing IV Secondary IV ONE (13:22)
--- NOTE | 2019-08-29 14:02 | Surgery Progress Note ---
Surgery Progress Note Subjective Procedure Performed Insertion of left subclavian temporary hemodialysis catheter Tracheostomy exchange 8 Russian Shiley Symptoms: improved, pain absent, tolerating diet, passing flatus, BM Objective Last 24 Hour Vital Signs Date Time Temp Pulse Resp B/P (MAP) Pulse Ox O2 Delivery O2 Flow Rate FiO2 08/29/19 12:00 Mechanical Ventilator Mechanical Ventilator 08/29/19 12:00 28 08/29/19 12:00 98.2 93 26 126/79 (95) 100 08/29/19 12:00 89 08/29/19 11:30 89 32 28 08/29/19 11:25 105 33 28 08/29/19 08:00 28 08/29/19 08:00 82 08/29/19 08:00 Mechanical Ventilator Mechanical Ventilator 08/29/19 08:00 97.9 87 26 145/78 (100) 100 08/29/19 07:15 84 26 28 08/29/19 04:00 Mechanical Ventilator Mechanical Ventilator 08/29/19 04:00 83 08/29/19 04:00 97.5 83 26 133/81 (98) 100 08/29/19 04:00 28 08/29/19 03:30 90 29 28 08/29/19 00:00 Mechanical Ventilator Mechanical Ventilator 08/29/19 00:00 82 08/29/19 00:00 98.9 85 26 128/88 (101) 100 08/29/19 00:00 28 08/28/19 23:03 90 26 28 08/28/19 22:00 28 08/28/19 21:54 91 22 28 08/28/19 20:00 28 08/28/19 20:00 98.4 100 20 123/78 (93) 100 08/28/19 20:00 Mechanical Ventilator Mechanical Ventilator 08/28/19 20:00 97 08/28/19 19:00 88 27 28 08/28/19 16:00 101 08/28/19 16:00 28 08/28/19 16:00 98.1 99 20 154/84 (107) 100 08/28/19 16:00 Mechanical Ventilator Mechanical Ventilator 08/28/19 15:09 80 30 28 I&O Intake and Output 08/28/19 08/29/19 19:00 07:00 Intake Total 680 ml 600 ml Output Total 1000 ml 200 ml Balance -320 ml 400 ml Free Water 200 ml Tube Feeding 480 ml 480 ml Other 120 ml Output Urine Total 200 ml Hemodialysis UF 1000 ml # Bowel Movements 6 51 Dressing: dry Wound: clean Cardiovascular: RSR Respiratory: clear Abdomen: soft, non-tender, present bowel sounds Extremities: no edema, no tenderness, no cyanosis Laboratory Tests Test 08/28/19 16:47 08/29/19 05:42 08/29/19 06:26 08/29/19 11:50 POC Whole Blood Glucose 116 MG/DL (74-106) H Pending 127 MG/DL (74-106) H White Blood Count 5.6 K/UL (4.8-10.8) Red Blood Count 3.16 M/UL (4.70-6.10) L Hemoglobin 8.3 G/DL (14.2-18.0) L Hematocrit 28.4 % (42.0-52.0) L Mean Corpuscular Volume 90 FL (80-99) Mean Corpuscular Hemoglobin 26.4 PG (27.0-31.0) L Mean Corpuscular Hemoglobin Concent 29.4 G/DL (32.0-36.0) L Red Cell Distribution Width 17.9 % (11.6-14.8) H Platelet Count 419 K/UL (150-450) Mean Platelet Volume 6.3 FL (6.5-10.1) L Neutrophils (%) (Auto) % (45.0-75.0) Lymphocytes (%) (Auto) % (20.0-45.0) Monocytes (%) (Auto) % (1.0-10.0) Eosinophils (%) (Auto) % (0.0-3.0) Basophils (%) (Auto) % (0.0-2.0) Differential Total Cells Counted 100 Neutrophils % (Manual) 30 % (45-75) L Lymphocytes % (Manual) 40 % (20-45) Monocytes % (Manual) 25 % (1-10) H Eosinophils % (Manual) 5 % (0-3) H Basophils % (Manual) 0 % (0-2) Band Neutrophils 0 % (0-8) Nucleated Red Blood Cells 1 /100 WBC Platelet Estimate Adequate Platelet Morphology Normal Hypochromasia 2+ Anisocytosis 1+ Sodium Level 138 MMOL/L (136-145) Potassium Level 3.3 MMOL/L (3.5-5.1) L Chloride Level 101 MMOL/L (98-107) Carbon Dioxide Level 27 MMOL/L (21-32) Anion Gap 11 mmol/L (5-15) Blood Urea Nitrogen 26 mg/dL (7-18) H Creatinine 4.9 MG/DL (0.55-1.30) H Estimat Glomerular Filtration Rate 11.9 mL/min (>60) Glucose Level 112 MG/DL (74-106) H Calcium Level 9.8 MG/DL (8.5-10.1) Phosphorus Level 2.3 MG/DL (2.5-4.9) L Magnesium Level 2.0 MG/DL (1.8-2.4) Total Bilirubin 0.3 MG/DL (0.2-1.0) Aspartate Amino Transf (AST/SGOT) 22 U/L (15-37) Alanine Aminotransferase (ALT/SGPT) 15 U/L (12-78) Alkaline Phosphatase 90 U/L (46-116) Total Protein 8.4 G/DL (6.4-8.2) H Albumin 2.7 G/DL (3.4-5.0) L Globulin 5.7 g/dL Random Vancomycin Level 20.0 ug/mL Plan Problems: (1) Suspected COVID-19 virus infection (2) HTN (hypertension) (3) CASSANDRA (acute kidney injury) Assessment & Plan: Needs urgent HD needs access patient okay and consented see note will follow with recs new line placed discussed with team and nephrology HD line functional when checked has TPA now please use appropriately Cathflo used again this flow during dialysis on 430 was low. Will monitor may need line change 5/4 plan for HD as per renal may need to take fluid off with HD edema anasarca dressings saturated and changed will monitor cont with HD IJ left line placed for HD given extent of prior line in place. leukocytosis blood cx negative may need to change out line new line okay HD going well Continue HD as tolerated May need pressors for HD as needed (4) Anemia in chronic kidney disease (CKD) (5) Anemia (6) Renal failure (7) Suspected COVID-19 virus infection Assessment & Plan: Pt deconditioned and despite all skin preventions Pt noted to have developed several pressure injuries. . Stable dry eschar noted to clefts of R and L ears. No erythema noted . DTPI noted to L trochanter. Base of injury is maroon in colour with marginal erythema along borders. Partially opened DTPI Sacrum, R and L Buttocks. Base of wound is maroon with two small open wounds L sacrum and L buttocks. Pt has an APM/MOMO Mattress overlay and is being positioned with pillows as per tolerance and within protocols. worsening despite medical efforts will cont to provide therapy Tx.Plan: Apply Cavilon Skin Barrier to both ears Daily and prn. Apply Moisture Barrier Paste to Sacrum,R and L Buttocks. Cover with Optifoam drsgs. Change every 3 days and PRN. Apply Cavilon Skin Barrier to R and L trochanter. Cover each site with Optifoam drsgs.Change every 7 days and PRN. Apply Cavilon Skin Barrier to both heels. Cover each heel with Optifoam drsg. Change every 7 days and prn. Off-load heels with pillow. Reposition at least every 2hours or as tolerated. APM/MOMO Mattress overlay. (8) COVID-19 Assessment & Plan: COVID + c diff negative febrile leukocytosis renal insufficiency see above cont resp care Rx as per ID worsening on vent support now cxr noted on pressors prognosis guarded repeat covid ++ weaning vent and pressors off slowly showing improvement slowly recovering will need trach as unable to wean vent safely [facility] obtained s/p trach pending peg worsening on levo max (9) Sepsis Assessment & Plan: worsening leukocytosis febrile on pressors discussed with ID. lines evaluated and clean. he is septic on pressors and needs central access in difficult venous access patient blood cultures negative will monitor temp HD cath out now with permacath left tlc still subclavian needed line c/d/i line negative c diff negative wbc resolved improved d/c planning febrile leukocytosis hold d/c infectious work up in place yeast in cultures fevers persistent fungemia abx as per ID hold on line removal cont abx repeat cx Plan for line removal plan for line holiday will replace dialysis catheter PRN Hemodialysis line change August 20 Tracheostomy exchange 8 Russian Shiley due to balloon insufficiency August 20 Yaniv Mast Aug 29, 2019 14:02
[2019-08-29 16:00] VITALS: BP 142/89
--- NOTE | 2019-08-29 16:27 | Cardiac Electrophysiology PN ---
Assessment/Plan Assessment/Plan 1. NSTEMI type 2. Low level and flat due to renal failure. On Aspirin. EF 60% . 2. S/P Septic shock. On Abx and Midodrine 10 tid. 3. ESRD, on HD per Dr. Cole. S/P Left SC Kamlesh catheter placement by Dr. Mast 4. VDRF due to COVID pneumonia. S/P Tracheostomy 07/08/19. 5. Atrial fib with RVR. Off Lopressor for Low BP, in SR 6. Dysphagia, S/P PEG 07/13/19 7. COPD. 8. Anemia. 9. Diarrhea 10. COVID19 pneumonia Positive: 05/27, 05/31 , 06/05, 06/09 ,06/17,06/19, 06/23, 06/27, 07/03, 07/15, 07/29 Negative: 07/26, 08/04, 08/05 DW RN Subjective Subjective In SDU on the vent via trach. Off isolation as Covid negative on 08/07/19. S/P subclavian Kamlesh catheter by Dr. Mast. Had HD yesterday Objective Last 24 Hour Vital Signs Date Time Temp Pulse Resp B/P (MAP) Pulse Ox O2 Delivery O2 Flow Rate FiO2 08/29/19 16:00 28 08/29/19 16:00 Mechanical Ventilator Mechanical Ventilator 08/29/19 16:00 97.7 97 26 142/89 (106) 100 08/29/19 16:00 92 08/29/19 12:00 Mechanical Ventilator Mechanical Ventilator 08/29/19 12:00 28 08/29/19 12:00 98.2 93 26 126/79 (95) 100 08/29/19 12:00 89 08/29/19 11:30 89 32 28 08/29/19 11:25 105 33 28 08/29/19 08:00 28 08/29/19 08:00 82 08/29/19 08:00 Mechanical Ventilator Mechanical Ventilator 08/29/19 08:00 97.9 87 26 145/78 (100) 100 08/29/19 07:15 84 26 28 08/29/19 04:00 Mechanical Ventilator Mechanical Ventilator 08/29/19 04:00 83 08/29/19 04:00 97.5 83 26 133/81 (98) 100 08/29/19 04:00 28 08/29/19 03:30 90 29 28 08/29/19 00:00 Mechanical Ventilator Mechanical Ventilator 08/29/19 00:00 82 08/29/19 00:00 98.9 85 26 128/88 (101) 100 08/29/19 00:00 28 08/28/19 23:03 90 26 28 08/28/19 22:00 28 08/28/19 21:54 91 22 28 08/28/19 20:00 28 08/28/19 20:00 98.4 100 20 123/78 (93) 100 08/28/19 20:00 Mechanical Ventilator Mechanical Ventilator 08/28/19 20:00 97 08/28/19 19:00 88 27 28 Intake and Output 08/28/19 08/29/19 19:00 07:00 Intake Total 680 ml 600 ml Output Total 1000 ml 200 ml Balance -320 ml 400 ml Free Water 200 ml Tube Feeding 480 ml 480 ml Other 120 ml Output Urine Total 200 ml Hemodialysis UF 1000 ml # Bowel Movements 6 51 Laboratory Tests Test 08/28/19 16:47 08/29/19 05:42 08/29/19 06:26 08/29/19 11:50 POC Whole Blood Glucose 116 MG/DL (74-106) H Pending 127 MG/DL (74-106) H White Blood Count 5.6 K/UL (4.8-10.8) Red Blood Count 3.16 M/UL (4.70-6.10) L Hemoglobin 8.3 G/DL (14.2-18.0) L Hematocrit 28.4 % (42.0-52.0) L Mean Corpuscular Volume 90 FL (80-99) Mean Corpuscular Hemoglobin 26.4 PG (27.0-31.0) L Mean Corpuscular Hemoglobin Concent 29.4 G/DL (32.0-36.0) L Red Cell Distribution Width 17.9 % (11.6-14.8) H Platelet Count 419 K/UL (150-450) Mean Platelet Volume 6.3 FL (6.5-10.1) L Neutrophils (%) (Auto) % (45.0-75.0) Lymphocytes (%) (Auto) % (20.0-45.0) Monocytes (%) (Auto) % (1.0-10.0) Eosinophils (%) (Auto) % (0.0-3.0) Basophils (%) (Auto) % (0.0-2.0) Differential Total Cells Counted 100 Neutrophils % (Manual) 30 % (45-75) L Lymphocytes % (Manual) 40 % (20-45) Monocytes % (Manual) 25 % (1-10) H Eosinophils % (Manual) 5 % (0-3) H Basophils % (Manual) 0 % (0-2) Band Neutrophils 0 % (0-8) Nucleated Red Blood Cells 1 /100 WBC Platelet Estimate Adequate Platelet Morphology Normal Hypochromasia 2+ Anisocytosis 1+ Sodium Level 138 MMOL/L (136-145) Potassium Level 3.3 MMOL/L (3.5-5.1) L Chloride Level 101 MMOL/L (98-107) Carbon Dioxide Level 27 MMOL/L (21-32) Anion Gap 11 mmol/L (5-15) Blood Urea Nitrogen 26 mg/dL (7-18) H Creatinine 4.9 MG/DL (0.55-1.30) H Estimat Glomerular Filtration Rate 11.9 mL/min (>60) Glucose Level 112 MG/DL (74-106) H Calcium Level 9.8 MG/DL (8.5-10.1) Phosphorus Level 2.3 MG/DL (2.5-4.9) L Magnesium Level 2.0 MG/DL (1.8-2.4) Total Bilirubin 0.3 MG/DL (0.2-1.0) Aspartate Amino Transf (AST/SGOT) 22 U/L (15-37) Alanine Aminotransferase (ALT/SGPT) 15 U/L (12-78) Alkaline Phosphatase 90 U/L (46-116) Total Protein 8.4 G/DL (6.4-8.2) H Albumin 2.7 G/DL (3.4-5.0) L Globulin 5.7 g/dL Random Vancomycin Level 20.0 ug/mL Objective HEAD AND NECK: No JVD. Tracheostomy in place. Left SC Kamlesh now in place. LUNGS: Decreased breath sounds. CARDIOVASCULAR: Regular S1 and S2. Tachycardic. ABDOMEN: Soft. PEG in place EXTREMITIES: No pitting edema. Gio Baker MD Aug 29, 2019 16:27
--- NOTE | 2019-08-29 18:01 | Pulmonolgy Critical Care Note ---
Critical Care - Asmt/Plan Assessment/Plan: Pulmonary Progress Note HPI: Patient is a 68 year old man, [place] [facility] resident, admitted c/o shortness of breath, cough, noted to have Covid 19 Pneumonia, Respiratory Failure Remains on Ventilator, CXR stable, mild interstitial prominence, 08/22 Anemia CKD on HD, will need eventual placement, repeat COVID19 test negative2019 (3 negative) Preserved EF FIO2 28%, P5, adequate O2 sats, remains on ACVC, tolerating CPAP PS 8 day, adequate ABG, s/p Tracheostomy previously, sp PEG, sp new HD line insertion ID following MRSA sputum Sp Trach change 08/20 Reviewed earlier Past Medical History: COPD, CKD, Hypertension, Anemia Allergies: No Known Allergies Physical Exam Vital Signs Noted Stable on ventilator Chronically ill appearing HEENT: Trach CDI Chest: CTAB Hreart: HS1, HS2, RRR Abdomen: SNTND, Gtube Extremities: Wasted, no edema ADMISSION SPECIALIST:No focal signs Impression: COVID-19 virus infection - now Covid negative Pneumonia Respiratory failure on ventilator, wean as tolerated CKD - on HD Previous NSTEMI Hypotension resolved Cardiomegaly Fungemia MRSA sputum COPD Chronic Kidney Disease - HD H/o Hypertension Anemia Plan: trach care as is Antibiotics per ID HD per renal monitor vitals AC - wean as tolerated, PS 8 AM PT eval, up in chair as tolerated anxiolytics if needed 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 PRN Monitor lab data nutrition feeds Hemodialysis per Renal impression, plan, and exam edited and reviewed in detail care discussed with RN Laboratory Tests Noted: CXR: No acute changes Subjective ROS Limited/Unobtainable: Yes Allergies: Coded Allergies: No Known Allergies (Unverified , 05/28/19) Critical Care - Objective Last 24 Hour Vital Signs Date Time Temp Pulse Resp B/P (MAP) Pulse Ox O2 Delivery O2 Flow Rate FiO2 08/29/19 16:23 28 08/29/19 16:23 100 08/29/19 16:23 93 27 28 08/29/19 16:00 28 08/29/19 16:00 Mechanical Ventilator Mechanical Ventilator 08/29/19 16:00 97.7 97 26 142/89 (106) 100 08/29/19 16:00 92 08/29/19 12:00 Mechanical Ventilator Mechanical Ventilator 08/29/19 12:00 28 08/29/19 12:00 98.2 93 26 126/79 (95) 100 08/29/19 12:00 89 08/29/19 11:30 89 32 28 08/29/19 11:25 105 33 28 08/29/19 08:00 28 08/29/19 08:00 82 08/29/19 08:00 Mechanical Ventilator Mechanical Ventilator 08/29/19 08:00 97.9 87 26 145/78 (100) 100 08/29/19 07:15 84 26 28 08/29/19 04:00 Mechanical Ventilator Mechanical Ventilator 08/29/19 04:00 83 08/29/19 04:00 97.5 83 26 133/81 (98) 100 08/29/19 04:00 28 08/29/19 03:30 90 29 28 08/29/19 00:00 Mechanical Ventilator Mechanical Ventilator 08/29/19 00:00 82 08/29/19 00:00 98.9 85 26 128/88 (101) 100 08/29/19 00:00 28 08/28/19 23:03 90 26 28 08/28/19 22:00 28 08/28/19 21:54 91 22 28 08/28/19 20:00 28 08/28/19 20:00 98.4 100 20 123/78 (93) 100 08/28/19 20:00 Mechanical Ventilator Mechanical Ventilator 08/28/19 20:00 97 08/28/19 19:00 88 27 28 Accucheck: 145 Critical Care - Subjective ROS Limited/Unobtainable: Yes Condition: stable IV Access: central FI02: 28 Vent Support Breath Rate: 26 Vent Support Mode: AC Vent Tidal Volume: 500 Sputum Amount: Large PEEP: 5.0 PIP: 36 Tube Feeding Amount: 40 I&O: Intake and Output 08/28/19 08/29/19 19:00 07:00 Intake Total 680 ml 600 ml Output Total 1000 ml 200 ml Balance -320 ml 400 ml Free Water 200 ml Tube Feeding 480 ml 480 ml Other 120 ml Output Urine Total 200 ml Hemodialysis UF 1000 ml # Bowel Movements 6 51 ET-Tube: 7.5 ET Position: 24 Arturo Mckeon MD Aug 29, 2019 18:01
[2019-08-29 20:00] VITALS: BP 135/77
[2019-08-29] MEDS: Dyna-Hex 2% Top Sol 2oz TOPIC SCH (20:11)
--- NOTE | 2019-08-29 23:43 | General Progress Note ---
Assessment/Plan Problem List: (1) HTN (hypertension) ICD Codes: I10 - Essential (primary) hypertension SNOMED: 26014875 (2) CASSANDRA (acute kidney injury) ICD Codes: N17.9 - Acute kidney failure, unspecified SNOMED: 7947100, 07350047 (3) Anemia in chronic kidney disease (CKD) ICD Codes: N18.9 - Chronic kidney disease, unspecified; D63.1 - Anemia in chronic kidney disease SNOMED: 825406085 (4) Renal failure ICD Codes: N19 - Unspecified kidney failure SNOMED: 20614155 (5) Respiratory failure requiring intubation ICD Codes: J96.90 - Respiratory failure, unspecified, unspecified whether with hypoxia or hypercapnia; A41.89 - Other specified sepsis SNOMED: 291068859, 593890679 (6) Pneumonia due to COVID-19 virus ICD Codes: U07.1 - COVID-19; J12.89 - Other viral pneumonia SNOMED: 871915262, 295802958 (7) Sepsis due to severe acute respiratory syndrome coronavirus 2 (SARS-CoV-2) ICD Codes: U07.1 - COVID-19; A41.89 - Other specified sepsis SNOMED: 309980682, 471850324 Status: progressing, unchanged Assessment/Plan: trach and peg s/p sepsis s/p pna .positive blood cx Subjective ROS Limited/Unobtainable: Yes Allergies: Coded Allergies: No Known Allergies (Unverified , 05/28/19) Objective Last 24 Hour Vital Signs Date Time Temp Pulse Resp B/P (MAP) Pulse Ox O2 Delivery O2 Flow Rate FiO2 08/29/19 20:00 81 08/29/19 20:00 Mechanical Ventilator Mechanical Ventilator 08/29/19 20:00 98.2 78 26 135/77 (96) 100 08/29/19 19:40 83 28 28 08/29/19 16:23 28 08/29/19 16:23 100 08/29/19 16:23 93 27 28 08/29/19 16:00 28 08/29/19 16:00 Mechanical Ventilator Mechanical Ventilator 08/29/19 16:00 97.7 97 26 142/89 (106) 100 08/29/19 16:00 92 08/29/19 12:00 Mechanical Ventilator Mechanical Ventilator 08/29/19 12:00 28 08/29/19 12:00 98.2 93 26 126/79 (95) 100 08/29/19 12:00 89 08/29/19 11:30 89 32 28 08/29/19 11:25 105 33 28 08/29/19 08:00 28 08/29/19 08:00 82 08/29/19 08:00 Mechanical Ventilator Mechanical Ventilator 08/29/19 08:00 97.9 87 26 145/78 (100) 100 08/29/19 07:15 84 26 28 08/29/19 04:00 Mechanical Ventilator Mechanical Ventilator 08/29/19 04:00 83 08/29/19 04:00 97.5 83 26 133/81 (98) 100 08/29/19 04:00 28 08/29/19 03:30 90 29 28 08/29/19 00:00 Mechanical Ventilator Mechanical Ventilator 08/29/19 00:00 82 08/29/19 00:00 98.9 85 26 128/88 (101) 100 08/29/19 00:00 28 Intake and Output 08/28/19 08/29/19 19:00 07:00 Intake Total 680 ml 600 ml Output Total 1000 ml 200 ml Balance -320 ml 400 ml Free Water 200 ml Tube Feeding 480 ml 480 ml Other 120 ml Output Urine Total 200 ml Hemodialysis UF 1000 ml # Bowel Movements 6 51 Laboratory Tests 08/29/19 05:42: White Blood Count 5.6, Red Blood Count 3.16L, Hemoglobin 8.3L, Hematocrit 28.4L , Mean Corpuscular Volume 90, Mean Corpuscular Hemoglobin 26.4L, Mean Corpuscular Hemoglobin Concent 29.4L, Red Cell Distribution Width 17.9H, Platelet Count 419, Mean Platelet Volume 6.3L, Neutrophils (%) (Auto) , Lymphocytes (%) (Auto) , Monocytes (%) (Auto) , Eosinophils (%) (Auto) , Basophils (%) (Auto) , Differential Total Cells Counted 100, Neutrophils % ( Manual) 30L, Lymphocytes % (Manual) 40, Monocytes % (Manual) 25H, Eosinophils % (Manual) 5H, Basophils % (Manual) 0, Band Neutrophils 0, Nucleated Red Blood Cells 1, Platelet Estimate Adequate, Platelet Morphology Normal, Hypochromasia 2 +, Anisocytosis 1+, Sodium Level 138, Potassium Level 3.3L, Chloride Level 101, Carbon Dioxide Level 27, Anion Gap 11, Blood Urea Nitrogen 26H, Creatinine 4.9H , Estimat Glomerular Filtration Rate 11.9, Glucose Level 112H, Calcium Level 9.8 , Phosphorus Level 2.3L, Magnesium Level 2.0, Total Bilirubin 0.3, Aspartate Amino Transf (AST/SGOT) 22, Alanine Aminotransferase (ALT/SGPT) 15, Alkaline Phosphatase 90, Total Protein 8.4H, Albumin 2.7L, Globulin 5.7, Random Vancomycin Level 20.0 08/29/19 06:26: POC Whole Blood Glucose [Pending] 08/29/19 11:50: POC Whole Blood Glucose 127H 08/29/19 16:40: POC Whole Blood Glucose 145H Height (Feet): 6 Height (Inches): 1.00 Weight (Pounds): 158 Karishma Mulligan MD Aug 29, 2019 23:43
[2019-08-30] VITALS: BP 116/66
[2019-08-30] MEDS: NovoLOG Insulin Flexpen SUBQ SCH ×5 (00:39→23:38)
[2019-08-30 04:00] VITALS: BP 125/73
[2019-08-30 08:00] VITALS: BP 128/73
[2019-08-30] MEDS: Fluconazole 100mg tab NG SCH (08:24)
[2019-08-30] MEDS: Lomotil 2.5mg tab NG SCH ×2 (08:24→18:22)
[2019-08-30] MEDS: Midodrine 10mg tab NG SCH ×3 (08:25→17:55)
[2019-08-30] MEDS: Enoxaparin 30mg Inj SUBQ SCH (08:25)
--- NOTE | 2019-08-30 09:30 | General Progress Note ---
Assessment/Plan Status: progressing, unchanged Assessment/Plan: 1. Diabetes. 2. Hypertension. 3. Coronary artery disease. 4. COPD. 5. Psychiatric disorder with schizophrenia. 6. History of hepatitis C. 7. HLP. 8. Chronic kidney disease, now with acute renal failure. 9. Anemia. 10. Hypothyroidism. 11. Spinal stenosis. 12. Constipation. 13. GERD. 14. COVID positive HD per nephrology fu labs s/p PEG GTF TF at 40 cc imodium lomotil neg C.diff off reglan monitor for residuals Subjective ROS Limited/Unobtainable: No Allergies: Coded Allergies: No Known Allergies (Unverified , 05/28/19) Objective Last 24 Hour Vital Signs Date Time Temp Pulse Resp B/P (MAP) Pulse Ox O2 Delivery O2 Flow Rate FiO2 08/30/19 08:00 97.2 83 22 128/73 (91) 100 08/30/19 07:10 85 30 28 08/30/19 04:00 28 08/30/19 04:00 Mechanical Ventilator Mechanical Ventilator 08/30/19 04:00 98.2 75 25 125/73 (90) 100 08/30/19 03:27 76 08/30/19 02:50 76 26 28 08/30/19 00:00 Mechanical Ventilator Mechanical Ventilator 08/30/19 00:00 28 08/30/19 00:00 75 08/30/19 00:00 98.1 76 25 116/66 (83) 100 08/29/19 23:30 75 08/29/19 22:35 83 26 28 08/29/19 20:00 81 08/29/19 20:00 Mechanical Ventilator Mechanical Ventilator 08/29/19 20:00 98.2 78 26 135/77 (96) 100 08/29/19 19:40 83 28 28 08/29/19 16:23 28 08/29/19 16:23 100 08/29/19 16:23 93 27 28 08/29/19 16:00 28 08/29/19 16:00 Mechanical Ventilator Mechanical Ventilator 08/29/19 16:00 97.7 97 26 142/89 (106) 100 08/29/19 16:00 92 08/29/19 12:00 Mechanical Ventilator Mechanical Ventilator 08/29/19 12:00 28 08/29/19 12:00 98.2 93 26 126/79 (95) 100 08/29/19 12:00 89 08/29/19 11:30 89 32 28 08/29/19 11:25 105 33 28 Intake and Output 08/29/19 08/30/19 19:00 07:00 Intake Total 830.832 ml 530 ml Balance 830.832 ml 530 ml Free Water 100 ml 50 ml IV Total 250.832 ml Tube Feeding 480 ml 480 ml # Bowel Movements 1 3 Laboratory Tests 08/29/19 11:50: POC Whole Blood Glucose 127H 08/29/19 16:40: POC Whole Blood Glucose 145H 08/30/19 00:38: POC Whole Blood Glucose 145H 08/30/19 05:39: POC Whole Blood Glucose [Pending] Height (Feet): 6 Height (Inches): 1.00 Weight (Pounds): 159 General Appearance: no apparent distress EENT: normal ENT inspection Neck: supple Cardiovascular: normal rate Respiratory/Chest: decreased breath sounds Abdomen: normal bowel sounds, non tender, soft Extremities: non-tender Marito Ramires MD Aug 30, 2019 09:30
--- NOTE | 2019-08-30 10:58 | Infectious Diseases Prog Note ---
Assessment/Plan Assessment/Plan IMPRESSION: 1. COVID19 pneumonia Positive: 05/27, 05/31 , 06/05, 06/09 ,5/, 5, 5, 06/27, 07/03, 07/15, 07/29 Negative: 07/26, 08/04, 08/05,08/24 2. MRSA carrier. 3. Chronic kidney disease , end-stage renal disease. 4. COPD. 5. Hypertension. 6. Anemia. 7. Hypothyroidism. 8. Hyperlipidemia. 9. Major depression. 10. Leukocytosis resolved 11. Hypotension 12. Hepatitis C 13. Hyperuricemia 14. Diarrhea, C difficile negative 15. septic shock 16.Sepsis blood cultures 08/08 & 08/12 : Bria albicans blood culture: 08/12 Staph Coagulase negative 17. Pneumonia with Staph aureus ( MRSA) 18. Candidal sepsis 19. Diarrhea, C. difficile negative RECOMMENDATIONS: continue Fluconazole X 22 days Discontinue Vancomycin Subjective ROS Limited/Unobtainable: Yes Constitutional: Denies: fever Allergies: Coded Allergies: No Known Allergies (Unverified , 05/28/19) Objective Last 24 Hour Vital Signs Date Time Temp Pulse Resp B/P (MAP) Pulse Ox O2 Delivery O2 Flow Rate FiO2 08/30/19 08:00 28 08/30/19 08:00 73 08/30/19 08:00 Mechanical Ventilator Mechanical Ventilator 08/30/19 08:00 97.2 83 22 128/73 (91) 100 08/30/19 07:10 85 30 28 08/30/19 04:00 28 08/30/19 04:00 Mechanical Ventilator Mechanical Ventilator 08/30/19 04:00 98.2 75 25 125/73 (90) 100 08/30/19 03:27 76 08/30/19 02:50 76 26 28 08/30/19 00:00 Mechanical Ventilator Mechanical Ventilator 08/30/19 00:00 28 08/30/19 00:00 75 08/30/19 00:00 98.1 76 25 116/66 (83) 100 08/29/19 23:30 75 08/29/19 22:35 83 26 28 08/29/19 20:00 81 08/29/19 20:00 Mechanical Ventilator Mechanical Ventilator 08/29/19 20:00 98.2 78 26 135/77 (96) 100 08/29/19 19:40 83 28 28 08/29/19 16:23 28 08/29/19 16:23 100 08/29/19 16:23 93 27 28 08/29/19 16:00 28 08/29/19 16:00 Mechanical Ventilator Mechanical Ventilator 08/29/19 16:00 97.7 97 26 142/89 (106) 100 08/29/19 16:00 92 08/29/19 12:00 Mechanical Ventilator Mechanical Ventilator 08/29/19 12:00 28 08/29/19 12:00 98.2 93 26 126/79 (95) 100 08/29/19 12:00 89 08/29/19 11:30 89 32 28 08/29/19 11:25 105 33 28 Height (Feet): 6 Height (Inches): 1.00 Weight (Pounds): 159 General Appearance: no acute distress HEENT: status post trach Respiratory/Chest: lungs clear, other - on ventilator Cardiovascular: normal rate, other - HD line Abdomen: soft, non tender, other - GT feeding Extremities: no edema Neurologic/Psychiatric: alert, responsive, disoriented Laboratory Tests Test 08/29/19 11:50 08/29/19 16:40 08/30/19 00:38 08/30/19 05:39 POC Whole Blood Glucose 127 MG/DL (74-106) H 145 MG/DL (74-106) H 145 MG/DL (74-106) H Pending Current Medications Medications (Trade) Dose Ordered Sig/Anthony Route PRN Reason Start Time Stop Time Status Last Admin Dose Admin Acetaminophen (Tylenol) 650 mg Q4H PRN NG For Pain 08/04/19 21:38 09/03/19 21:37 08/23/19 12:26 Acetaminophen (Tylenol) 650 mg Q4H PRN NG Temp >100.5 08/15/19 13:30 09/08/19 08:29 08/23/19 23:24 Chlorhexidine Gluconate (Michelle-Hex 2%) 1 applic DAILY@1999 TOPIC 08/21/19 20:00 11/19/19 19:59 08/29/19 20:11 Dextrose (Dextrose 50%) 25 ml Q30M PRN IV Hypoglycemia 08/04/19 22:00 09/18/19 19:29 Dextrose (Dextrose 50%) 50 ml Q30M PRN IV Hypoglycemia 08/04/19 22:00 09/18/19 19:29 Diphenoxylate HCl/ Atropine (Lomotil) 2.5 mg BID NG 08/24/19 18:00 09/17/19 17:59 08/30/19 08:24 Enoxaparin Sodium (Lovenox) 30 mg DAILY SUBQ 08/05/19 09:00 09/25/19 08:59 08/30/19 08:25 Epoetin Aftab (Epoetin Aftab(ESRD on dialysis)) 10,000 unit FRI- SUBQ 08/11/19 21:00 11/09/19 20:59 08/27/19 20:51 Fluconazole (Diflucan) 200 mg DAILY NG 08/13/19 10:24 09/03/19 10:23 08/30/19 08:24 Haloperidol Lactate 5 mg/ Dextrose 56 ml @ 224 mls/hr Q6H PRN IVPB Agitation 08/04/19 21:38 09/18/19 21:37 08/19/19 02:26 Hydralazine HCl (Apresoline) 10 mg Q4H PRN IV Blood pressure over 160 systol 08/04/19 21:39 11/02/19 21:38 Insulin Aspart (NovoLOG) EVERY 6 HOURS SUBQ 08/05/19 00:00 09/19/19 00:00 08/30/19 05:40 Loperamide HCl (Imodium) 2 mg Q6H NG 08/18/19 14:00 09/15/19 13:59 08/30/19 08:24 Midodrine (Pro-Amatine) 10 mg THREE TIMES A DAY NG 08/15/19 18:00 11/13/19 17:59 08/26/19 18:09 Vancomycin HCl (Vanco pharmacy to dose) 1 ea DAILY PRN MISC Per rx protocol 08/15/19 08:45 09/14/19 08:44 Ted Leyva MD Aug 30, 2019 10:58
--- NOTE | 2019-08-30 11:18 | General Progress Note ---
Assessment/Plan Problem List: (1) HTN (hypertension) ICD Codes: I10 - Essential (primary) hypertension SNOMED: 63109635 (2) CASSANDRA (acute kidney injury) ICD Codes: N17.9 - Acute kidney failure, unspecified SNOMED: 2632207, 99618373 (3) Anemia in chronic kidney disease (CKD) ICD Codes: N18.9 - Chronic kidney disease, unspecified; D63.1 - Anemia in chronic kidney disease SNOMED: 140325006 (4) Renal failure ICD Codes: N19 - Unspecified kidney failure SNOMED: 57832174 (5) Respiratory failure requiring intubation ICD Codes: J96.90 - Respiratory failure, unspecified, unspecified whether with hypoxia or hypercapnia; A41.89 - Other specified sepsis SNOMED: 351058415, 384596913 (6) Pneumonia due to COVID-19 virus ICD Codes: U07.1 - COVID-19; J12.89 - Other viral pneumonia SNOMED: 568881318, 122053610 (7) Sepsis due to severe acute respiratory syndrome coronavirus 2 (SARS-CoV-2) ICD Codes: U07.1 - COVID-19; A41.89 - Other specified sepsis SNOMED: 741808494, 948369309 Status: progressing, unchanged Assessment/Plan: trach and peg s/p sepsis s/p pna repeat blood cx and covid are both negative need placement Subjective ROS Limited/Unobtainable: Yes Allergies: Coded Allergies: No Known Allergies (Unverified , 05/28/19) Objective Last 24 Hour Vital Signs Date Time Temp Pulse Resp B/P (MAP) Pulse Ox O2 Delivery O2 Flow Rate FiO2 08/30/19 10:50 92 30 28 08/30/19 08:00 28 08/30/19 08:00 73 08/30/19 08:00 Mechanical Ventilator Mechanical Ventilator 08/30/19 08:00 97.2 83 22 128/73 (91) 100 08/30/19 07:10 85 30 28 08/30/19 04:00 28 08/30/19 04:00 Mechanical Ventilator Mechanical Ventilator 08/30/19 04:00 98.2 75 25 125/73 (90) 100 08/30/19 03:27 76 08/30/19 02:50 76 26 28 08/30/19 00:00 Mechanical Ventilator Mechanical Ventilator 08/30/19 00:00 28 08/30/19 00:00 75 08/30/19 00:00 98.1 76 25 116/66 (83) 100 08/29/19 23:30 75 08/29/19 22:35 83 26 28 08/29/19 20:00 81 08/29/19 20:00 Mechanical Ventilator Mechanical Ventilator 08/29/19 20:00 98.2 78 26 135/77 (96) 100 08/29/19 19:40 83 28 28 08/29/19 16:23 28 08/29/19 16:23 100 08/29/19 16:23 93 27 28 08/29/19 16:00 28 08/29/19 16:00 Mechanical Ventilator Mechanical Ventilator 08/29/19 16:00 97.7 97 26 142/89 (106) 100 08/29/19 16:00 92 08/29/19 12:00 Mechanical Ventilator Mechanical Ventilator 08/29/19 12:00 28 08/29/19 12:00 98.2 93 26 126/79 (95) 100 08/29/19 12:00 89 08/29/19 11:30 89 32 28 08/29/19 11:25 105 33 28 Intake and Output 08/29/19 08/30/19 19:00 07:00 Intake Total 830.832 ml 530 ml Balance 830.832 ml 530 ml Free Water 100 ml 50 ml IV Total 250.832 ml Tube Feeding 480 ml 480 ml # Bowel Movements 1 3 Laboratory Tests 08/29/19 11:50: POC Whole Blood Glucose 127H 08/29/19 16:40: POC Whole Blood Glucose 145H 08/30/19 00:38: POC Whole Blood Glucose 145H 08/30/19 05:39: POC Whole Blood Glucose [Pending] Height (Feet): 6 Height (Inches): 1.00 Weight (Pounds): 159 Karishma Mulligan MD Aug 30, 2019 11:18
[2019-08-30 12:00] VITALS: BP 141/77
--- NOTE | 2019-08-30 12:28 | Hematology/Onc Progress Note ---
Assessment/Plan Assessment/Plan Assessment and Recs: # Anemia of chronic disease, likely related ot underlying kidney disease has COIVD19++++++ --> hgb trend 9-->8-->7.3-->7.9-->6.8->9.5-->10->8.3-->7.7-->7.1-->8.9->8.8->7.7 -->8.1 ->7.9-->7.7 -->8.2-->8.1 -->7.9-->8.5 -->9->9.2-->9.5-->10.7 -->9.8--> 10.2-->11.8 -->11.9-->8.8 ->9.4->9-->8.3 -->8.5-->9.4->9.8-->9-->8.3-->11.6--> 10.8-->10.5-->10->9.7->9.9->8.7->8.4->8-->8.5-->8-->8.3 --> transfuse as needed, hgb goal >7 --> no evidence of hemolysis --> peripheral smear has been reviewed --> epogen started 3 x a week ==>> transfuse 06/08, 06/15 # Leukocytosis likely related to suspected COVID-19 virus infection --> completed plaquenil --> trend smear as needed --> wbc trend: 4-->11-->14.5-->21-->26-->21->24--.28-->23-->19-->16.2-->21--> 11.2 -->12.5-->12.3-->12.4-->18.5-->18.5-->17->13-->18.2-->22.2-->25-->17.4-->17 -->14.2-->14-->16-->15.5-->9->17->11.5-->12->12-->18->15->9.8-->4.3-->5.6 --> pulm is aware --> on abx cefepime/vanc->zosyn/vanc-->dom/vanc-->dom-->levaquin/cefepime--> vanc/zosyn --> vanc --> pressors as needed --> 06/27 covid 19++ --> pressors as needed in icu --> c diff negative 08/08 --> blood cx++ # Thrombocytopenia/Lymphopenia --> likely related to covid19 --> plt 129k-->186k-->251-->285-->384 -->430-->539-->515-->447-->451-->404-->544 -->244 -->393 --> hep panel pending --> hiv negative # Respiratory failure with covid19+ --> s/p vent/trach --> weaning # Possible Pneumonia --> abx completed --> 07/13 cxr: Improved right lung infiltrates. # Cardiomegaly # Transaminitis with Elevated AST # COPD # Chronic Kidney Disease --> per renal hd --> s/p right femoral cath 07/02 # Hypertension # peg # Dvt ppx lovenox Appreciate consultation and ernesto Rn Subjective Constitutional: Denies: no symptoms, chills, fever, malaise, weakness, other Cardiovascular: Denies: no symptoms, chest pain, edema, irregular heart rate, lightheadedness, palpitations, syncope, other Respiratory: Denies: no symptoms, cough, shortness of breath, SOB with excertion, SOB at rest, sputum, wheezing, other Gastrointestinal/Abdominal: Denies: no symptoms, abdomen distended, abdominal pain, black stools, tarry stools, blood in stool, constipated, diarrhea, difficulty swallowing, nausea, poor appetite, poor fluid intake, rectal bleeding , vomiting, other Genitourinary: Denies: no symptoms, burning, discharge, frequency, flank pain, hematuria, incontinence, pain, urgency, other Neurologic/Psychiatric: Denies: no symptoms, anxiety, depressed, emotional problems, headache, numbness, paresthesia, pre-existing deficit, seizure, tingling, tremors, weakness, other Endocrine: Denies: no symptoms, excessive sweating, flushing, intolerance to cold, intolerance to heat, increased hunger, increased thirst, increased urine, unexplained weight gain, unexplained weight loss, other Allergies: Coded Allergies: No Known Allergies (Unverified , 05/28/19) Subjective 06/01 nv, extremely agitated, not allowing labs draws, no night sweats, cbc ordered 06/02 confused, restraints, on abx and plaquenil, hgb 7.9, nrb 15 L 06/03 is with nonrebreather, but not compliant, remains confused 06/05 no bleeding, labs noted, no major bleeding, otherwise comfortable 06/06 labs reviewed, no bleeding, meds noted, no night sweats, on levo and nonrebreather 06/07 labs noted, no bleeding, meds reviewed, no bleeding, wbc higher 06/08 to get 2 units prbc, no night sweats, meds reviewed 06/09 is on cefepime and vanc, labs noted, ernesto Rn, no bleeding 06/10 no major changes, labs reviewed, wbc 28k, on abx, cefepime 06/12 remains in icu, labs noted, no night sweats or bleeding 06/13 sluggish pupils, remains agitated, per psych, no bleding, on vent, wbc sitll high 06/14 still confused, remains on vent, with ng, running nepro, on pressors 06/15 icu, febrile, non verbal, hgb 7.1, blood pending, completed plaq 06/16 remains in the icu, nonverbal, plan for hd tomorrow, ernesto rn 06/17 in icu, on pressor, nonverbal, on abx, no bleeding 06/19 no bleeding, nonverbal in icu, hgb is 7.7 06/20 on zosyn, tube feeds, vent, labs noted, in icu, nv 06/21 gettng hd as per renal, in icu, nv, no bleeding, tfs 06/22 icu, cxr with slight improvement, cooling blanket, weaning today 06/23 wewaning, in icu, on vent, abx, and pressors as needed, labs noted 06/24 failed weaning, off abx, completed plaquenil, hgb 8.1 06/26 icu, weaning for this am, afebrile, hgb 8 06/27 in icu, remains comotose, weaning started on peep, no night sweats 06/28 weaning today, off abx, restraints, no distress, h/h stable 06/29 covid 19+, failed weaning, no blood transfusion needed 06/30 icu, on vent, labs reviewed, no distress 07/01 in icu, may need trach, remains on hd per renal, labs noted 07/02 s/p right fem cath, failed wean, no new orders, h/h stable 07/03 is somewhat more responsive, on abx, no bleeding, weaning and HD today 07/04 hd as per renal, weaning off vent, no bleeding today 07/05 obtunded, no bleding overnight, with hd for tomorrow noted, vanc 07/08 no events, remains with trach/vent, ernesto Rn, no bleeding, cbc is noted 07/09 no overnight events, peg for friday pending consent 07/10 off pressors, vent, restraints, labs reviewed 07/11 no acute events is on pressors, intubated, agitated still 07/12 is resting comfortably, no bleeding, emds reviewed and noted 07/13 icu, no events, trach, cxr reviewed, 07/14 is onv ent, tachypneic and tachycardic, labs noted 07/15 remains confused, intubated, ernesto Rn, no bleeding 07/17 icu, cxr improving infiltrates, levo gtt, airborne/contact isolation 07/18 is on broad spectrum abx, is on levaquin and cefepime, wbc 16 agitated 07/19 icu, levo gtt, cxr unchanged, tachy, hd thursday 07/20 sedated, safety restraints, labs reviewed 07/21 hd was done yesterday, lower pressor requirements, wbc is worse, on abx 07/22 icu, meds and labs reviewed, vent, no distress 07/24 on vent, in icu, labs noted, remains agitated, and confused 07/25 remains obtunded, on vent, on pressor, hgb 9, wbc elev 07/26 icu, levo gtt, vent, iv abx, nonverbal 07/27 failed weaning, labs reviewed, repeat covid swab pending 07/28 labs are noted, no bleeding, on vent/trach gtube feeds dw rn 07/29 iuc, restraints, no new changes, vent 07/31 is asleep, comfortable, no events, labs reviewed, restraints+ 08/01 no events, agitated, no bleeding, meds noted, on gtube feeds 08/02 remains on vent, no bleeding, wbc higher 19, hgb 9, on abx 08/03 labs noted, on vent, no bleeding, wbc 17, hgb better 08/04 labs reviewed, no bleeding, does not require prbc, on vent 08/05 more alert, is on trach, vent, no major events, no bleeding, peg+ 08/07 no bleeding no chills, no night sweats, is on vent/trach 08/08 recent covid swab negative, restraints, cxr unchanged 08/09 c diff negative, zosyn, hd today, gtf 08/10 no overnight events, labs reviewed, afebrile 08/11 labs reviewed, meds noted, no fc, no major changes, wbc 12 3 abx changed to flucon, on abx, wbc 12 / bp on low end, blood cx++, vanc, vent 08/15 no bleeding, no night sweats, on abx, trach/vent 08/16 is able to nod head in response to question, labs noted, on vent/trach 08/17 labs reviewed, hgb 9.8, no bleeding, on abx, meds noted 08/18 labs noted, no bleeding, hgb stable, 9.9, mildly alert 08/19 labs are noted, no bleeding, meds reviewed, line holiday per surg 08/21 labs noted, meds reviewed, no bleeding hgb 8.7 08/22 labs reviewed, no bleeding, meds noted, no night sweats hgb 8.4 08/23 labs ar enoted, no bleeidng, hgb 8, no hemolysis, with rectal tube 08/24 labs reviewed, no bleeding, no night sweats, hgb 8 08/25 no events, hiv negative, hep panel pending, on vanc 08/26 remains confused, is on vent, no bleding, ernesto rn 08/28 is comfortable, no bleeding, dw rn, no night sweats 08/29 alert is tracking, no bleeding, meds reviewed, s/p peg/trach Objective Objective Current Medications Medications (Trade) Dose Ordered Sig/Anthony Route PRN Reason Start Time Stop Time Status Last Admin Dose Admin Acetaminophen (Tylenol) 650 mg Q4H PRN NG For Pain 08/04/19 21:38 09/03/19 21:37 08/23/19 12:26 Acetaminophen (Tylenol) 650 mg Q4H PRN NG Temp >100.5 08/15/19 13:30 09/08/19 08:29 08/23/19 23:24 Chlorhexidine Gluconate (Michelle-Hex 2%) 1 applic DAILY@2000 TOPIC 08/21/19 20:00 11/19/19 19:59 08/29/19 20:11 Dextrose (Dextrose 50%) 25 ml Q30M PRN IV Hypoglycemia 08/04/19 22:00 09/18/19 19:29 Dextrose (Dextrose 50%) 50 ml Q30M PRN IV Hypoglycemia 08/04/19 22:00 09/18/19 19:29 Diphenoxylate HCl/ Atropine (Lomotil) 2.5 mg BID NG 08/24/19 18:00 09/17/19 17:59 08/30/19 08:24 Enoxaparin Sodium (Lovenox) 30 mg DAILY SUBQ 08/05/19 09:00 09/25/19 08:59 08/30/19 08:25 Epoetin Aftab (Epoetin Aftab(ESRD on dialysis)) 10,000 unit FRI-FRI-FRI SUBQ 08/11/19 21:00 11/09/19 20:59 08/27/19 20:51 Fluconazole (Diflucan) 200 mg DAILY NG 08/13/19 10:24 09/03/19 10:23 08/30/19 08:24 Haloperidol Lactate 5 mg/ Dextrose 56 ml @ 224 mls/hr Q6H PRN IVPB Agitation 08/04/19 21:38 09/18/19 21:37 08/19/19 02:26 Hydralazine HCl (Apresoline) 10 mg Q4H PRN IV Blood pressure over 160 systol 08/04/19 21:39 11/02/19 21:38 Insulin Aspart (NovoLOG) EVERY 6 HOURS SUBQ 08/05/19 00:00 09/19/19 00:00 08/30/19 05:40 Loperamide HCl (Imodium) 2 mg Q6H NG 08/18/19 14:00 09/15/19 13:59 08/30/19 08:24 Midodrine (Pro-Amatine) 10 mg THREE TIMES A DAY NG 08/15/19 18:00 11/13/19 17:59 08/26/19 18:09 Last 24 Hour Vital Signs Date Time Temp Pulse Resp B/P (MAP) Pulse Ox O2 Delivery O2 Flow Rate FiO2 08/30/19 10:50 92 30 28 08/30/19 08:00 28 08/30/19 08:00 73 08/30/19 08:00 Mechanical Ventilator Mechanical Ventilator 08/30/19 08:00 97.2 83 22 128/73 (91) 100 08/30/19 07:10 85 30 28 08/30/19 04:00 28 08/30/19 04:00 Mechanical Ventilator Mechanical Ventilator 08/30/19 04:00 98.2 75 25 125/73 (90) 100 08/30/19 03:27 76 08/30/19 02:50 76 26 28 08/30/19 00:00 Mechanical Ventilator Mechanical Ventilator 08/30/19 00:00 28 08/30/19 00:00 75 08/30/19 00:00 98.1 76 25 116/66 (83) 100 08/29/19 23:30 75 08/29/19 22:35 83 26 28 08/29/19 20:00 81 08/29/19 20:00 Mechanical Ventilator Mechanical Ventilator 08/29/19 20:00 98.2 78 26 135/77 (96) 100 08/29/19 19:40 83 28 28 08/29/19 16:23 28 08/29/19 16:23 100 08/29/19 16:23 93 27 28 08/29/19 16:00 28 08/29/19 16:00 Mechanical Ventilator Mechanical Ventilator 08/29/19 16:00 97.7 97 26 142/89 (106) 100 08/29/19 16:00 92 08/29/19 12:00 Mechanical Ventilator Mechanical Ventilator 08/29/19 12:00 28 08/29/19 12:00 98.2 93 26 126/79 (95) 100 08/29/19 12:00 89 08/29/19 11:30 89 32 28 08/29/19 11:25 105 33 28 08/29/19 08:00 28 08/29/19 08:00 82 08/29/19 08:00 Mechanical Ventilator Mechanical Ventilator 08/29/19 08:00 97.9 87 26 145/78 (100) 100 08/29/19 07:15 84 26 28 08/29/19 04:00 Mechanical Ventilator Mechanical Ventilator 08/29/19 04:00 83 08/29/19 04:00 97.5 83 26 133/81 (98) 100 08/29/19 04:00 28 08/29/19 03:30 90 29 28 08/29/19 00:00 Mechanical Ventilator Mechanical Ventilator 08/29/19 00:00 82 08/29/19 00:00 98.9 85 26 128/88 (101) 100 08/29/19 00:00 28 08/28/19 23:03 90 26 28 08/28/19 22:00 28 08/28/19 21:54 91 22 28 08/28/19 20:00 28 08/28/19 20:00 98.4 100 20 123/78 (93) 100 08/28/19 20:00 Mechanical Ventilator Mechanical Ventilator 08/28/19 20:00 97 08/28/19 19:00 88 27 28 08/28/19 16:00 101 08/28/19 16:00 28 08/28/19 16:00 98.1 99 20 154/84 (107) 100 08/28/19 16:00 Mechanical Ventilator Mechanical Ventilator 08/28/19 15:09 80 30 28 Intake and Output 08/29/19 08/30/19 19:00 07:00 Intake Total 830.832 ml 530 ml Balance 830.832 ml 530 ml Free Water 100 ml 50 ml IV Total 250.832 ml Tube Feeding 480 ml 480 ml # Bowel Movements 1 3 Labs Test 08/27/19 23:17 08/28/19 05:35 08/28/19 11:55 08/28/19 16:47 POC Whole Blood Glucose 160 MG/DL (74-106) 153 MG/DL (74-106) 151 MG/DL (74-106) 116 MG/DL (74-106) Test 08/29/19 05:42 08/29/19 06:26 08/29/19 11:50 08/29/19 16:40 White Blood Count 5.6 K/UL (4.8-10.8) Red Blood Count 3.16 M/UL (4.70-6.10) Hemoglobin 8.3 G/DL (14.2-18.0) Hematocrit 28.4 % (42.0-52.0) Mean Corpuscular Volume 90 FL (80-99) Mean Corpuscular Hemoglobin 26.4 PG (27.0-31.0) Mean Corpuscular Hemoglobin Concent 29.4 G/DL (32.0-36.0) Red Cell Distribution Width 17.9 % (11.6-14.8) Platelet Count 419 K/UL (150-450) Mean Platelet Volume 6.3 FL (6.5-10.1) Neutrophils (%) (Auto) % (45.0-75.0) Lymphocytes (%) (Auto) % (20.0-45.0) Monocytes (%) (Auto) % (1.0-10.0) Eosinophils (%) (Auto) % (0.0-3.0) Basophils (%) (Auto) % (0.0-2.0) Differential Total Cells Counted 100 Neutrophils % (Manual) 30 % (45-75) Lymphocytes % (Manual) 40 % (20-45) Monocytes % (Manual) 25 % (1-10) Eosinophils % (Manual) 5 % (0-3) Basophils % (Manual) 0 % (0-2) Band Neutrophils 0 % (0-8) Nucleated Red Blood Cells 1 /100 WBC Platelet Estimate Adequate Platelet Morphology Normal Hypochromasia 2+ Anisocytosis 1+ Sodium Level 138 MMOL/L (136-145) Potassium Level 3.3 MMOL/L (3.5-5.1) Chloride Level 101 MMOL/L (98-107) Carbon Dioxide Level 27 MMOL/L (21-32) Anion Gap 11 mmol/L (5-15) Blood Urea Nitrogen 26 mg/dL (7-18) Creatinine 4.9 MG/DL (0.55-1.30) Estimat Glomerular Filtration Rate 11.9 mL/min (>60) Glucose Level 112 MG/DL (74-106) Calcium Level 9.8 MG/DL (8.5-10.1) Phosphorus Level 2.3 MG/DL (2.5-4.9) Magnesium Level 2.0 MG/DL (1.8-2.4) Total Bilirubin 0.3 MG/DL (0.2-1.0) Aspartate Amino Transf (AST/SGOT) 22 U/L (15-37) Alanine Aminotransferase (ALT/SGPT) 15 U/L (12-78) Alkaline Phosphatase 90 U/L (46-116) Total Protein 8.4 G/DL (6.4-8.2) Albumin 2.7 G/DL (3.4-5.0) Globulin 5.7 g/dL Random Vancomycin Level 20.0 ug/mL POC Whole Blood Glucose 127 MG/DL (74-106) 145 MG/DL (74-106) Test 08/30/19 00:38 08/30/19 05:39 08/30/19 11:23 POC Whole Blood Glucose 145 MG/DL (74-106) 138 MG/DL (74-106) Height (Feet): 6 Height (Inches): 1.00 Weight (Pounds): 159 Objective General: nv, confused, sedated Heent: bilateral eye normal inspection, bilateral eye PERRL ++Ng Respiratory: normal breath sounds, no respiratory distress, intubated/vent +++ trach+++ Cardiovascular: regular rate, rhythm, no edema Gastrointestinal: normal inspection, soft, non-distended, peg+ Rectal: deferred Musculoskeletal: normal range of motion, non-tender, R fem cath++ Neurologic: alert, motor strength/tone normal, sensory intact, responsive, speech normal Skin: Decubitus/Ulcer - See RN skin exam. : jamaal+ Greg Cabral MD Aug 30, 2019 12:28
--- NOTE | 2019-08-30 12:59 | Nephrology Progress Note ---
Assessment/Plan Problem List: (1) CASSANDRA (acute kidney injury) (2) Anemia in chronic kidney disease (CKD) (3) HTN (hypertension) (4) COVID-19 Assessment Acute renal failure most likely superimposed on chronic kidney disease Suspected COVID-19 virus infection Possible Pneumonia, lymphopenia, elevated AST Cardiomegaly, possible CHF COPD Hypertension Anemia, most likely related to chronic kidney disease Plan August 29: Next dialysis tomorrow August 30. No labs done today. Continue her consultants. August 28: Dialyzed yesterday August 27. Today's labs reviewed. Potassium supplement given. Aim to dialyse on August 30 next. August 27: Dialysis today. Blood pressure stable. No labs drawn today. Continue per consultants. August 26: Dialysis tomorrow August 27. Blood pressure is stable. Aim to ultrafiltrate 1 L. Labs reviewed. Continue per consultants. August 25: Dialyzed yesterday. No UF. Blood pressure is stable. Potassium supplement given. Next hemodialysis planned for August 27. Will order sooner if needed. August 24: No chemistry panel today. Due for dialysis today. Blood pressure stable. August 23: Labs reviewed. Potassium supplement given. Blood pressure is stable. Due for dialysis tomorrow. No ultrafiltration will be done. August 22: Patient was dialyzed yesterday. Pressure low today. 500 cc albumin ordered. Continue to monitor renal parameters. Continue to be on Midodrin. August 21: A temporary catheter for dialysis was put in yesterday, and the patient is due for dialysis today. Continue per consultants. August 20: Patient due for insertion of a temporary dialysis catheter. I ordered dialysis for tomorrow August 21. Continue per consultants. Discussed with RN"Janice " August 19: Permacath discontinued. Due for temporary non-tunneled dialysis access. White blood cells are up to over 14,000. Will dialyze as needed. August 18: Discussed with ID and general surgery. Will remove the permacath which is thought to be infected by IR today. Will monitor renal parameters. Will obtain surveillance cultures tomorrow. Will attempt to put a temporary dialysis access in 48 to 72 hours for dialysis purposes. August 17: Last dialysis August 15, no blood work done today yet. Will reassess if dialysis should be continued. Continue per current management. We will make arrangement to DC permacath and reinsert a new one via general surgery and or interventional radiology August 16: Albumin for low BP. Continue to monitor renal parameters. August 15: Due for dialysis today. Remains borderline low. No ultrafiltration during dialysis. Discussed with SHANIQUE Macdonald. August 14: No labs done today. Patient hypotensive. Normal saline and albumin bolus given. Midodrin started. Will check lab tomorrow. August 13: Lab reviewed. Last dialysis yesterday. Next dialysis August 15. Potassium and phosphorus supplement given. Continue per consultants. August 12: No can panel done today. Due for dialysis today. Continue per consultants. August 11: Patient labs reviewed. Will order dialysis tomorrow. Continue per consultants. August 10: Patient was dialyzed yesterday. Today's labs checked. Stable from renal standpoint to view August 09: Patient scheduled for hemodialysis today. Will check labs tomorrow. August 08: Lab reviewed. Hemodialysis scheduled for tomorrow. August 07: Dialyzed yesterday. No labs drawn today. Will check labs tomorrow. Continue per consultants. August 06: Patient on dialysis now. Discussed with dialysis nurse. Slight catheter malfunction persist. August 05: Labs reviewed. Dialysis scheduled for tomorrow. Continue per consultants. August 04: No labs done today. Dialyzed yesterday. Check labs tomorrow. Continue per consultants. August 03: Lab reviewed. Due for dialysis today. White blood cell 17,500. August 02: Lab reviewed. Low phosphorus replaced. Hemodialysis ordered for tomorrow. White blood cells over 18,000. August 01: Labs reviewed. Potassium replacement ordered. Remains full code on ventilator via trach. Continue per consultants. July 31: Dialyzed yesterday. No can panel today. Remains full code. Remains on ventilator. Being fed through PEG. Continue per consultants. July 30: Patient due for dialysis today. Labs are reviewed. Remains full code. Status post trach to ventilator. Status post PEG. July 29: Patient dialyzed yesterday. Due for dialysis tomorrow. Remains in ICU. Full code. Status post trach tube to ventilator. Status post PEG. July 28: Due for dialysis today. Labs reviewed. Full code. Patient trached and vented. July 27: Last COVID test negative. COVID test will be repeated tomorrow. Will order dialysis tomorrow. Remains full code. Medication list and labs reviewed. July 26: No labs done today. Dialysis done yesterday. Will check lab tomorrow. Dialysis as needed. July 25: Lab reviewed. Dialysis today. Discussed with RN. July 24: Lab reviewed. Do dialysis tomorrow. Discussed with RN. July 23: Lab reviewed. Dialyzed yesterday. Discussed with RN. Remains full code. Next dialysis July 25. Will check labs tomorrow. July 22: Labs reviewed. Due for dialysis today. Discussed with RN. Watch borderline low blood pressure. Discussed with dialysis nurse. July 21: Today's lab reviewed. Will arrange for dialysis tomorrow. Discussed with RN. Aim to keep the blood pressure above 100 systolic. Continue per consultants. July 20: Patient was dialyzed yesterday. Could not ultrafiltrate much due to low blood pressure. Discussed with SHANIQUE Dick today. No labs drawn today. Continue per consultants. July 19: Due for dialysis today. Discussed with SHANIQUE Dick. Continue per consultants. July 18: Dialyzed July 16. Will order dialysis tomorrow July 19. Continues to be on ventilator through trach. No labs done today. Continue per consultants. July 17: Dialyzed yesterday. Stable from renal standpoint of view. Remains full code. Status post trach on vent. Status post PEG. Continue per consultants. July 16: Dialysis today. Will resume Midodrin to prevent hypotension. Patient remains full code. July 15: Dialyzed yesterday, due for dialysis tomorrow. Labs and medication list reviewed. Continue per consultants. Patient remains full code. COVID-19 detected again. July 14: Patient currently on dialysis. This is continuation of dialysis from yesterday as yesterday's dialysis was cut short due to catheter malfunction. Labs and medication reviewed. Continue per consultants. July 13: Patient currently on hemodialysis. The dialysis catheter which is a intrajugular Kamlesh has poor flow. Will try TPA. Continue per consultants. July 12: Due for PEG today. Due for dialysis tomorrow. Continue per consultants. Discussed with RN. July 11: Plan for dialysis today. Discussed with RN. Data reviewed. July 10: Plan for dialysis tomorrow July 11. Waiting for consent to proceed with PEG. Continue per consultants. Medication reviewed. Labs reviewed. Discussed with RN. July 09: Dialyzed yesterday. Labs reviewed. Medication reviewed. Next hemodialysis July 11. July 08: Patient has tracheostomy now. Connected to ventilator. Due for dialysis today. Continue per consultants. Discussed with SHANIQUE Romero. July 07: Patient is due for tracheostomy today. Patient was last dialyzed July 05. Will order dialysis for tomorrow. July 06: Patient is intubated on ventilator however the plan is to extubate today. Patient was dialysis yesterday July 05. The dialysis time was cut short due to patient's respiratory distress. Only 1 L was removed during dialysis yesterday. Today's lab reviewed. Continue per consultants. Will arrange for dialysis as needed. July 05: Patient due for dialysis today. Remains intubated. Will schedule permacath placement in a.m. blood cultures on July 04 are negative. July 04: Patient was dialyzed yesterday. Due for dialysis tomorrow. Continues to be intubated. After tomorrow's dialysis will order a permacath. July 03: Dialysis is about to be started now Continues to be intubated Will plan to remove the femoral dialysis catheter and exchanged for a new temporary catheter per ID recommendation We will check surveillance blood culture tomorrow July 02: Patient was dialyzed yesterday and due for dialysis tomorrow Stable from renal standpoint W on dialysis Continue per consultants, weaning....... etc. July 01: Dialysis today Other status unchanged June 30: Due for dialysis tomorrow Remains intubated on ventilator Labs and medication reviewed Discussed with SHANIQUE Stable from renal standpoint of view June 29: Dialyzed yesterday Due for dialysis tomorrow Stable from renal standpoint to view Keeps failing weaning process June 28: Patient due for dialysis today Stable from renal standpoint to view Continue per consultants June 27: Labs reviewed Due due for dialysis June 28 Discussed with SHANIQUE Dick Continue per consultants Remains intubated on ventilator June 26 Labs reviewed Dialyzed yesterday Started on weaning today Continue to monitor renal parameters June 25: On dialysis now Potassium supplement implemented Continue per consultants Next dialysis June 27June 15: Status unchanged Dialyzed yesterday will dialyze again tomorrow Potassium supplements given Discussed with RN June 23: Due dialysis today Status: Remains intubated on ventilator June 22: Status unchanged Dialyzed yesterday and duefordialysistomorrow Serum sodium stable today June 21 Remains intubated on ventilator Due dialysis today Emphasized high sodium bath for dialysis June 20: Remains intubated on ventilator Dialyzed May 10 next dialysis June 21 Serum sodium 128, will give 250 cc 3% saline Remains full code Discussed with RN Iron panel ordered June 19: Discussed with RN. Patient due for dialysis today. Continue pulmonary support. Remains full code. June 18: Patient dialyzed yesterday June 17 Serum sodium improved but still low Arrange for dialysis tomorrow June 19 Continue per consultants June 17: Due for dialysis today Today's lab reviewed, low serum sodium noted, Emphasized on high sodium bath to dialysis nurse Discussed with SHANIQUE Yuen June 16: Dialyzed yesterday Remains intubated Labs reviewed, serum sodium 131 Plan to dialyze tomorrow June 17 with high sodium bath Discussed with SHANIQUE Yuen June 15: Due for dialysis today Labs reviewed Discussed with RN Transfuse 1 unit of packed RBCs today for low hemoglobin of 7.1 June 5: Blood pressure well maintained Receive dialysis June 13 next hemodialysis June 15June 4: Discussed with RN in ICU Patient did not receive proper dialysis yesterday due to dialysis catheter malfunction Catheter to be adjusted today and dialyzed to be resumed today Continue per consultants Positive for COVID 28 June 2: Patient now intubated on mechanical ventilation Discussed with SHANIQUE Yuen, today June 12 Patient received dialysis yesterday June 10 next hemodialysis June 12 Blood pressure better maintained Today's labs reviewed Continue per consultants Previously patient received dialysis last evening June 05, next dialysis June 07 which was incomplete due to patient's hypotension Will start on midodrine for blood pressure support. Meanwhile continue other pressors as needed Previously Patient is doing poorly, septic, white blood cells are rising, Hypotension somewhat improved We will keep n.p.o. , NG tube for medications, and change medication to IV as needed Patient remains full code Monitor vancomycin level Previously: Patient pulled out his femoral catheter yesterday June 03 which was reinserted by Dr. Mast Patient scheduled for dialysis again June 04, which again was not done due to dialysis nurse citing catheter malfunction Meanwhile continue management per ID, pulmonary , and psych. Meanwhile white blood cell count is rising. Patient blood pressure borderline low. Will check ABG Previously May 31 : I believe patient need dialysis treatment He however needs to competency assessment if can make decisions or not I will communicate with Dr. Mulligan Previously: Per pulmonary and ID advice Adjust blood pressure medication Renal diet Anemia work-up 2D echocardiogram refused Kidney ultrasound refused Jules catheter Urine studies Per orders Subjective ROS Limited/Unobtainable: Yes Objective Objective Last 24 Hour Vital Signs Date Time Temp Pulse Resp B/P (MAP) Pulse Ox O2 Delivery O2 Flow Rate FiO2 08/30/19 10:50 92 30 28 08/30/19 08:00 28 08/30/19 08:00 73 08/30/19 08:00 Mechanical Ventilator Mechanical Ventilator 08/30/19 08:00 97.2 83 22 128/73 (91) 100 08/30/19 07:10 85 30 28 08/30/19 04:00 28 08/30/19 04:00 Mechanical Ventilator Mechanical Ventilator 08/30/19 04:00 98.2 75 25 125/73 (90) 100 08/30/19 03:27 76 08/30/19 02:50 76 26 28 08/30/19 00:00 Mechanical Ventilator Mechanical Ventilator 08/30/19 00:00 28 08/30/19 00:00 75 08/30/19 00:00 98.1 76 25 116/66 (83) 100 08/29/19 23:30 75 08/29/19 22:35 83 26 28 08/29/19 20:00 81 08/29/19 20:00 Mechanical Ventilator Mechanical Ventilator 08/29/19 20:00 98.2 78 26 135/77 (96) 100 08/29/19 19:40 83 28 28 08/29/19 16:23 28 08/29/19 16:23 100 08/29/19 16:23 93 27 28 08/29/19 16:00 28 08/29/19 16:00 Mechanical Ventilator Mechanical Ventilator 08/29/19 16:00 97.7 97 26 142/89 (106) 100 08/29/19 16:00 92 Intake and Output 08/29/19 08/30/19 19:00 07:00 Intake Total 830.832 ml 530 ml Balance 830.832 ml 530 ml Free Water 100 ml 50 ml IV Total 250.832 ml Tube Feeding 480 ml 480 ml # Bowel Movements 1 3 No chemistry panel today laboratory Tests 08/29/19 16:40: POC Whole Blood Glucose 145H 08/30/19 00:38: POC Whole Blood Glucose 145H 08/30/19 05:39: POC Whole Blood Glucose [Pending] 08/30/19 11:23: POC Whole Blood Glucose 138H Height (Feet): 6 Height (Inches): 1.00 Weight (Pounds): 159 General Appearance: no apparent distress EENT: other Cardiovascular: normal rate Respiratory/Chest: decreased breath sounds - Trach to vent Abdomen: other - PEG Objective No change Mic Cole MD Aug 30, 2019 12:59
--- NOTE | 2019-08-30 14:20 | Surgery Progress Note ---
Surgery Progress Note Subjective Procedure Performed Insertion of left subclavian temporary hemodialysis catheter Tracheostomy exchange 8 Mauritian Shiley Additional Comments doing better improving comfortable Objective Last 24 Hour Vital Signs Date Time Temp Pulse Resp B/P (MAP) Pulse Ox O2 Delivery O2 Flow Rate FiO2 08/30/19 12:00 28 08/30/19 12:00 82 08/30/19 12:00 Mechanical Ventilator Mechanical Ventilator 08/30/19 12:00 97.9 84 29 141/77 (98) 100 08/30/19 10:50 92 30 28 08/30/19 08:00 28 08/30/19 08:00 73 08/30/19 08:00 Mechanical Ventilator Mechanical Ventilator 08/30/19 08:00 97.2 83 22 128/73 (91) 100 08/30/19 07:10 85 30 28 08/30/19 04:00 28 08/30/19 04:00 Mechanical Ventilator Mechanical Ventilator 08/30/19 04:00 98.2 75 25 125/73 (90) 100 08/30/19 03:27 76 08/30/19 02:50 76 26 28 08/30/19 00:00 Mechanical Ventilator Mechanical Ventilator 08/30/19 00:00 28 08/30/19 00:00 75 08/30/19 00:00 98.1 76 25 116/66 (83) 100 08/29/19 23:30 75 08/29/19 22:35 83 26 28 08/29/19 20:00 81 08/29/19 20:00 Mechanical Ventilator Mechanical Ventilator 08/29/19 20:00 98.2 78 26 135/77 (96) 100 08/29/19 19:40 83 28 28 08/29/19 16:23 28 08/29/19 16:23 100 08/29/19 16:23 93 27 28 08/29/19 16:00 28 08/29/19 16:00 Mechanical Ventilator Mechanical Ventilator 08/29/19 16:00 97.7 97 26 142/89 (106) 100 08/29/19 16:00 92 I&O Intake and Output 08/29/19 08/30/19 19:00 07:00 Intake Total 830.832 ml 530 ml Balance 830.832 ml 530 ml Free Water 100 ml 50 ml IV Total 250.832 ml Tube Feeding 480 ml 480 ml # Bowel Movements 1 3 Dressing: other Wound: other Drains: other Cardiovascular: RSR Respiratory: decreased breath sounds Abdomen: soft, non-tender, present bowel sounds Extremities: no tenderness, no cyanosis Laboratory Tests Test 08/29/19 16:40 08/30/19 00:38 08/30/19 05:39 08/30/19 11:23 POC Whole Blood Glucose 145 MG/DL (74-106) H 145 MG/DL (74-106) H Pending 138 MG/DL (74-106) H Plan Problems: (1) Suspected COVID-19 virus infection (2) HTN (hypertension) (3) CASSANDRA (acute kidney injury) Assessment & Plan: Needs urgent HD needs access patient okay and consented see note will follow with recs new line placed discussed with team and nephrology HD line functional when checked has TPA now please use appropriately Cathflo used again this flow during dialysis on 430 was low. Will monitor may need line change / plan for HD as per renal may need to take fluid off with HD edema anasarca dressings saturated and changed will monitor cont with HD IJ left line placed for HD given extent of prior line in place. leukocytosis blood cx negative may need to change out line new line okay HD going well Continue HD as tolerated May need pressors for HD as needed (4) Anemia in chronic kidney disease (CKD) (5) Anemia (6) Renal failure (7) Suspected COVID-19 virus infection Assessment & Plan: Pt deconditioned and despite all skin preventions Pt noted to have developed several pressure injuries. . Stable dry eschar noted to clefts of R and L ears. No erythema noted . DTPI noted to L trochanter. Base of injury is maroon in colour with marginal erythema along borders. Partially opened DTPI Sacrum, R and L Buttocks. Base of wound is maroon with two small open wounds L sacrum and L buttocks. Pt has an APM/MOMO Mattress overlay and is being positioned with pillows as per tolerance and within protocols. worsening despite medical efforts will cont to provide therapy Tx.Plan: Apply Cavilon Skin Barrier to both ears Daily and prn. Apply Moisture Barrier Paste to Sacrum,R and L Buttocks. Cover with Optifoam drsgs. Change every 3 days and PRN. Apply Cavilon Skin Barrier to R and L trochanter. Cover each site with Optifoam drsgs.Change every 7 days and PRN. Apply Cavilon Skin Barrier to both heels. Cover each heel with Optifoam drsg. Change every 7 days and prn. Off-load heels with pillow. Reposition at least every 2hours or as tolerated. APM/MOMO Mattress overlay. (8) COVID-19 Assessment & Plan: COVID + c diff negative febrile leukocytosis renal insufficiency see above cont resp care Rx as per ID worsening on vent support now cxr noted on pressors prognosis guarded repeat covid ++ weaning vent and pressors off slowly showing improvement slowly recovering will need trach as unable to wean vent safely called and spoke with [facility]. consent obtained s/p trach pending peg worsening on levo max (9) Sepsis Assessment & Plan: worsening leukocytosis febrile on pressors discussed with ID. lines evaluated and clean. he is septic on pressors and needs central access in difficult venous access patient blood cultures negative will monitor temp HD cath out now with permacath left tlc still subclavian needed line c/d/i line negative c diff negative wbc resolved improved d/c planning febrile leukocytosis hold d/c infectious work up in place yeast in cultures fevers persistent fungemia abx as per ID hold on line removal cont abx repeat cx Plan for line removal plan for line holiday will replace dialysis catheter PRN Hemodialysis line change August 20 Tracheostomy exchange 8 Mauritian Shiley due to balloon insufficiency August 20 Yaniv Mast Aug 30, 2019 14:20
--- NOTE | 2019-08-30 15:47 | Cardiac Electrophysiology PN ---
Assessment/Plan Assessment/Plan 1. NSTEMI type 2. Low level and flat due to renal failure. On Aspirin. EF 60% . 2. S/P Septic shock. On Abx and Midodrine 10 tid. 3. ESRD, on HD per Dr. Cole. 4. VDRF due to COVID pneumonia. S/P Tracheostomy 07/08/19. 5. Atrial fib with RVR. Off Lopressor for Low BP, in SR 6. Dysphagia, S/P PEG 07/13/19 7. COPD. 8. Anemia. 9. Diarrhea 10. COVID19 pneumonia Positive: 05/27, 05/31 , 06/05, 06/09 ,06/17,06/19, 06/23, 06/27, 07/03, 07/15, 07/29 Negative: 07/26, 08/04, 08/05 DW RN Subjective Subjective In SDU on the vent via trach. Off isolation as Covid negative on 08/07/19. No new events Objective Last 24 Hour Vital Signs Date Time Temp Pulse Resp B/P (MAP) Pulse Ox O2 Delivery O2 Flow Rate FiO2 08/30/19 12:00 28 08/30/19 12:00 82 08/30/19 12:00 Mechanical Ventilator Mechanical Ventilator 08/30/19 12:00 97.9 84 29 141/77 (98) 100 08/30/19 10:50 92 30 28 08/30/19 08:00 28 08/30/19 08:00 73 08/30/19 08:00 Mechanical Ventilator Mechanical Ventilator 08/30/19 08:00 97.2 83 22 128/73 (91) 100 08/30/19 07:10 85 30 28 08/30/19 04:00 28 08/30/19 04:00 Mechanical Ventilator Mechanical Ventilator 08/30/19 04:00 98.2 75 25 125/73 (90) 100 08/30/19 03:27 76 08/30/19 02:50 76 26 28 08/30/19 00:00 Mechanical Ventilator Mechanical Ventilator 08/30/19 00:00 28 08/30/19 00:00 75 08/30/19 00:00 98.1 76 25 116/66 (83) 100 08/29/19 23:30 75 08/29/19 22:35 83 26 28 08/29/19 20:00 81 08/29/19 20:00 Mechanical Ventilator Mechanical Ventilator 08/29/19 20:00 98.2 78 26 135/77 (96) 100 08/29/19 19:40 83 28 28 08/29/19 16:23 28 08/29/19 16:23 100 08/29/19 16:23 93 27 28 08/29/19 16:00 28 08/29/19 16:00 Mechanical Ventilator Mechanical Ventilator 08/29/19 16:00 97.7 97 26 142/89 (106) 100 08/29/19 16:00 92 Intake and Output 08/29/19 08/30/19 19:00 07:00 Intake Total 830.832 ml 530 ml Balance 830.832 ml 530 ml Free Water 100 ml 50 ml IV Total 250.832 ml Tube Feeding 480 ml 480 ml # Bowel Movements 1 3 Laboratory Tests Test 08/29/19 16:40 08/30/19 00:38 08/30/19 05:39 08/30/19 11:23 POC Whole Blood Glucose 145 MG/DL (74-106) H 145 MG/DL (74-106) H Pending 138 MG/DL (74-106) H Objective HEAD AND NECK: No JVD. Tracheostomy in place. Left SC Kamlesh now in place. LUNGS: Decreased breath sounds. CARDIOVASCULAR: Regular S1 and S2. Tachycardic. ABDOMEN: Soft. PEG in place EXTREMITIES: No pitting edema. Gio Baker MD Aug 30, 2019 15:47
[2019-08-30 16:00] VITALS: BP 149/67
[2019-08-30 20:00] VITALS: BP 136/82
[2019-08-30] MEDS: Dyna-Hex 2% Top Sol 2oz TOPIC SCH (20:30)
[2019-08-30] MEDS: Epoetin Alfa-EPBX(ESRD on dialysis)10,000 unit/ml vial SUBQ SCH (20:30)
[2019-08-30] MEDS: Acetaminophen 650mg/20.3ml NG PRN (20:31)
[2019-08-31] VITALS: BP 132/89
[2019-08-31 04:00] VITALS: BP 138/75
[2019-08-31 05:35] LABS: HEMOGLOBIN 7.9 G/DL (14.2-18.0); MEAN CORPUSCULAR VOLUME 90 FL (80-99); PLATELET COUNT 427 K/UL (150-450); RED CELL DISTRIBUTION WIDTH 18.1 % (11.6-14.8); WHITE BLOOD COUNT 10.6 K/UL (4.8-10.8)
[2019-08-31] MEDS: NovoLOG Insulin Flexpen SUBQ SCH ×3 (05:56→18:10)
[2019-08-31 06:06] LABS: ALANINE AMINOTRANSFERASE 18 U/L (12-78); ALBUMIN 2.8 G/DL (3.4-5.0); ALBUMIN/GLOBULIN RATIO 0.5 (1.0-2.7); ALKALINE PHOSPHATASE 92 U/L (46-116); ANION GAP 13 mmol/L (5-15); ASPARTATE AMINO TRANSFERASE 23 U/L (15-37); BILIRUBIN,TOTAL 0.2 MG/DL (0.2-1.0); BLOOD UREA NITROGEN 26 mg/dL (7-18); CALCIUM 9.8 MG/DL (8.5-10.1); CARBON DIOXIDE 25 MMOL/L (21-32); CHLORIDE 100 MMOL/L (98-107); PHOSPHORUS 2.8 MG/DL (2.5-4.9); POTASSIUM 4.4 MMOL/L (3.5-5.1); SODIUM 138 MMOL/L (136-145)
[2019-08-31 08:00] VITALS: BP 160/92
[2019-08-31] MEDS: Fluconazole 100mg tab NG SCH (08:58)
[2019-08-31] MEDS: Lomotil 2.5mg tab NG SCH ×2 (08:58→18:02)
[2019-08-31] MEDS: Enoxaparin 30mg Inj SUBQ SCH (08:59)
[2019-08-31] MEDS: Midodrine 10mg tab NG SCH ×3 (09:00→18:00)
--- NOTE | 2019-08-31 10:13 | General Progress Note ---
Assessment/Plan Status: progressing, unchanged Assessment/Plan: 1. Diabetes. 2. Hypertension. 3. Coronary artery disease. 4. COPD. 5. Psychiatric disorder with schizophrenia. 6. History of hepatitis C. 7. HLP. 8. Chronic kidney disease, now with acute renal failure. 9. Anemia. 10. Hypothyroidism. 11. Spinal stenosis. 12. Constipation. 13. GERD. 14. COVID positive HD per nephrology fu labs s/p PEG GTF TF at 40 cc imodium lomotil neg C.diff off reglan monitor for residuals Subjective ROS Limited/Unobtainable: No Allergies: Coded Allergies: No Known Allergies (Unverified , 05/28/19) Objective Last 24 Hour Vital Signs Date Time Temp Pulse Resp B/P (MAP) Pulse Ox O2 Delivery O2 Flow Rate FiO2 08/31/19 09:22 87 08/31/19 08:57 95 34 28 28 08/31/19 08:00 98.6 94 22 160/92 (114) 100 08/31/19 08:00 Mechanical Ventilator Mechanical Ventilator 08/31/19 08:00 28 08/31/19 07:12 93 29 28 08/31/19 04:00 99.2 93 34 138/75 (96) 100 08/31/19 04:00 28 08/31/19 04:00 92 08/31/19 04:00 Mechanical Ventilator Mechanical Ventilator 08/31/19 03:20 94 26 28 08/31/19 00:00 28 08/31/19 00:00 99.2 114 32 132/89 (103) 98 08/31/19 00:00 Mechanical Ventilator Mechanical Ventilator 08/30/19 23:35 115 08/30/19 23:30 113 30 28 08/30/19 20:00 28 08/30/19 20:00 98.5 129 34 136/82 (100) 99 08/30/19 20:00 Mechanical Ventilator Mechanical Ventilator 08/30/19 20:00 132 08/30/19 19:30 133 37 28 08/30/19 16:00 28 08/30/19 16:00 99 08/30/19 16:00 Mechanical Ventilator Mechanical Ventilator 08/30/19 16:00 98.0 82 25 149/67 (94) 100 08/30/19 15:40 97 32 28 08/30/19 15:40 100 08/30/19 12:00 28 08/30/19 12:00 82 08/30/19 12:00 Mechanical Ventilator Mechanical Ventilator 08/30/19 12:00 97.9 84 29 141/77 (98) 100 08/30/19 10:50 92 30 28 Intake and Output 08/30/19 08/31/19 19:00 07:00 Intake Total 540 ml 530 ml Balance 540 ml 530 ml Free Water 60 ml 50 ml Tube Feeding 480 ml 480 ml # Bowel Movements 2 5 Laboratory Tests 08/30/19 11:23: POC Whole Blood Glucose 138H 08/30/19 16:39: POC Whole Blood Glucose 136H 08/31/19 04:25: White Blood Count 10.6, Red Blood Count 2.90L, Hemoglobin 7.9L, Hematocrit 26.0L , Mean Corpuscular Volume 90, Mean Corpuscular Hemoglobin 27.1, Mean Corpuscular Hemoglobin Concent 30.2L, Red Cell Distribution Width 18.1H, Platelet Count 427, Mean Platelet Volume 6.0L, Neutrophils (%) (Auto) , Lymphocytes (%) (Auto) , Monocytes (%) (Auto) , Eosinophils (%) (Auto) , Basophils (%) (Auto) , Sodium Level 138, Potassium Level 4.4, Chloride Level 100 , Carbon Dioxide Level 25, Anion Gap 13, Blood Urea Nitrogen 26H, Creatinine 5.0H, Estimat Glomerular Filtration Rate 11.6, Glucose Level 109H, Calcium Level 9.8, Phosphorus Level 2.8, Magnesium Level 2.0, Total Bilirubin 0.2, Aspartate Amino Transf (AST/SGOT) 23, Alanine Aminotransferase (ALT/SGPT) 18, Alkaline Phosphatase 92, Total Protein 7.9, Albumin 2.8L, Globulin 5.1, Albumin/ Globulin Ratio 0.5L Height (Feet): 6 Height (Inches): 1.00 Weight (Pounds): 172 General Appearance: no apparent distress EENT: normal ENT inspection Neck: supple Cardiovascular: normal rate Respiratory/Chest: decreased breath sounds Abdomen: hypoactive bowel sounds Extremities: non-tender Marito Ramires MD Aug 31, 2019 10:13
--- NOTE | 2019-08-31 11:13 | Infectious Diseases Prog Note ---
Assessment/Plan Assessment/Plan antibiotics : fluconazole A 1. COVID 19 pneumonia 2. fungemia with carlos albicans 3. coag neg staph sepsis s/p rx 4, respiratory failure 5. hepatitis C 6. hypertension 7. COPD 8. renal failure P 1. continue fluconazole 21 more days 2. will follow up cultures Subjective ROS Limited/Unobtainable: Yes Allergies: Coded Allergies: No Known Allergies (Unverified , 05/28/19) Objective Last 24 Hour Vital Signs Date Time Temp Pulse Resp B/P (MAP) Pulse Ox O2 Delivery O2 Flow Rate FiO2 08/31/19 11:02 90 29 28 28 08/31/19 09:22 87 08/31/19 08:57 95 34 28 28 08/31/19 08:00 98.6 94 22 160/92 (114) 100 08/31/19 08:00 Mechanical Ventilator Mechanical Ventilator 08/31/19 08:00 28 08/31/19 07:12 93 29 28 08/31/19 04:00 99.2 93 34 138/75 (96) 100 08/31/19 04:00 28 08/31/19 04:00 92 08/31/19 04:00 Mechanical Ventilator Mechanical Ventilator 08/31/19 03:20 94 26 28 08/31/19 00:00 28 08/31/19 00:00 99.2 114 32 132/89 (103) 98 08/31/19 00:00 Mechanical Ventilator Mechanical Ventilator 08/30/19 23:35 115 08/30/19 23:30 113 30 28 08/30/19 20:00 28 08/30/19 20:00 98.5 129 34 136/82 (100) 99 08/30/19 20:00 Mechanical Ventilator Mechanical Ventilator 08/30/19 20:00 132 08/30/19 19:30 133 37 28 08/30/19 16:00 28 08/30/19 16:00 99 08/30/19 16:00 Mechanical Ventilator Mechanical Ventilator 08/30/19 16:00 98.0 82 25 149/67 (94) 100 08/30/19 15:40 97 32 28 08/30/19 15:40 100 08/30/19 12:00 28 08/30/19 12:00 82 08/30/19 12:00 Mechanical Ventilator Mechanical Ventilator 08/30/19 12:00 97.9 84 29 141/77 (98) 100 Height (Feet): 6 Height (Inches): 1.00 Weight (Pounds): 172 HEENT: status post trach Respiratory/Chest: lungs clear Cardiovascular: normal rate, no gallop/murmur Abdomen: soft, non tender, other - GT Extremities: no edema Laboratory Tests Test 08/30/19 11:23 08/30/19 16:39 08/31/19 04:25 POC Whole Blood Glucose 138 MG/DL (74-106) H 136 MG/DL (74-106) H White Blood Count 10.6 K/UL (4.8-10.8) Red Blood Count 2.90 M/UL (4.70-6.10) L Hemoglobin 7.9 G/DL (14.2-18.0) L Hematocrit 26.0 % (42.0-52.0) L Mean Corpuscular Volume 90 FL (80-99) Mean Corpuscular Hemoglobin 27.1 PG (27.0-31.0) Mean Corpuscular Hemoglobin Concent 30.2 G/DL (32.0-36.0) L Red Cell Distribution Width 18.1 % (11.6-14.8) H Platelet Count 427 K/UL (150-450) Mean Platelet Volume 6.0 FL (6.5-10.1) L Neutrophils (%) (Auto) % (45.0-75.0) Lymphocytes (%) (Auto) % (20.0-45.0) Monocytes (%) (Auto) % (1.0-10.0) Eosinophils (%) (Auto) % (0.0-3.0) Basophils (%) (Auto) % (0.0-2.0) Sodium Level 138 MMOL/L (136-145) Potassium Level 4.4 MMOL/L (3.5-5.1) Chloride Level 100 MMOL/L (98-107) Carbon Dioxide Level 25 MMOL/L (21-32) Anion Gap 13 mmol/L (5-15) Blood Urea Nitrogen 26 mg/dL (7-18) H Creatinine 5.0 MG/DL (0.55-1.30) H Estimat Glomerular Filtration Rate 11.6 mL/min (>60) Glucose Level 109 MG/DL (74-106) H Calcium Level 9.8 MG/DL (8.5-10.1) Phosphorus Level 2.8 MG/DL (2.5-4.9) Magnesium Level 2.0 MG/DL (1.8-2.4) Total Bilirubin 0.2 MG/DL (0.2-1.0) Aspartate Amino Transf (AST/SGOT) 23 U/L (15-37) Alanine Aminotransferase (ALT/SGPT) 18 U/L (12-78) Alkaline Phosphatase 92 U/L (46-116) Total Protein 7.9 G/DL (6.4-8.2) Albumin 2.8 G/DL (3.4-5.0) L Globulin 5.1 g/dL Albumin/Globulin Ratio 0.5 (1.0-2.7) L Current Medications Medications (Trade) Dose Ordered Sig/Anthony Route PRN Reason Start Time Stop Time Status Last Admin Dose Admin Acetaminophen (Tylenol) 650 mg Q4H PRN NG For Pain 08/04/19 21:38 09/03/19 21:37 08/30/19 20:31 Acetaminophen (Tylenol) 650 mg Q4H PRN NG Temp >100.5 08/15/19 13:30 09/08/19 08:29 08/23/19 23:24 Chlorhexidine Gluconate (Michelle-Hex 2%) 1 applic DAILY@1999 TOPIC 08/21/19 20:00 11/19/19 19:59 08/30/19 20:30 Dextrose (Dextrose 50%) 25 ml Q30M PRN IV Hypoglycemia 08/04/19 22:00 09/18/19 19:29 Dextrose (Dextrose 50%) 50 ml Q30M PRN IV Hypoglycemia 08/04/19 22:00 09/18/19 19:29 Diphenoxylate HCl/ Atropine (Lomotil) 2.5 mg BID NG 08/24/19 18:00 09/17/19 17:59 08/31/19 08:58 Enoxaparin Sodium (Lovenox) 30 mg DAILY SUBQ 08/05/19 09:00 09/25/19 08:59 08/31/19 08:59 Epoetin Aftab (Epoetin Aftab(ESRD on dialysis)) 10,000 unit -FRI SUBQ 08/11/19 21:00 9/29/20 20:59 08/30/19 20:30 Fluconazole (Diflucan) 200 mg DAILY NG 08/13/19 10:24 09/21/19 23:59 08/31/19 08:58 Haloperidol Lactate 5 mg/ Dextrose 56 ml @ 224 mls/hr Q6H PRN IVPB Agitation 08/04/19 21:38 09/18/19 21:37 08/19/19 02:26 Hydralazine HCl (Apresoline) 10 mg Q4H PRN IV Blood pressure over 160 systol 08/04/19 21:39 11/02/19 21:38 Insulin Aspart (NovoLOG) EVERY 6 HOURS SUBQ 08/05/19 00:00 09/19/19 00:00 08/31/19 05:56 Loperamide HCl (Imodium) 2 mg Q6H NG 08/18/19 14:00 09/15/19 13:59 08/31/19 08:59 Midodrine (Pro-Amatine) 10 mg THREE TIMES A DAY NG 08/15/19 18:00 11/13/19 17:59 08/26/19 18:09 Vonnie Jeffers MD Aug 31, 2019 11:13
--- NOTE | 2019-08-31 11:29 | Pulmonolgy Critical Care Note ---
Critical Care - Asmt/Plan Assessment/Plan: Pulmonary Progress Note HPI: Patient is a 68 year old man, [facility] resident, admitted c/o shortness of breath, cough, noted to have Covid 19 Pneumonia, Respiratory Failure Remains on Ventilator, CXR stable, mild interstitial prominence, 08/22 Anemia CKD on HD, will need eventual placement, repeat COVID19 test negative2019 (3 negative) Preserved EF FIO2 28%, P5, adequate O2 sats, remains on ACVC, tolerating CPAP PS 8 day, adequate ABG, s/p Tracheostomy previously, sp PEG, sp new HD line insertion ID following MRSA sputum Sp Trach change 08/20 Reviewed earlier on 08/30/2019 Past Medical History: COPD, CKD, Hypertension, Anemia Allergies: No Known Allergies Physical Exam Vital Signs Noted Stable on ventilator Chronically ill appearing HEENT: Trach CDI Chest: CTAB Hreart: HS1, HS2, RRR Abdomen: SNTND, Gtube Extremities: Wasted, no edema BOX ANNEALER:No focal signs Impression: COVID-19 virus infection - now Covid negative Pneumonia Respiratory failure on ventilator, wean as tolerated CKD - on HD Previous NSTEMI Hypotension resolved Cardiomegaly Fungemia MRSA sputum COPD Chronic Kidney Disease - HD H/o Hypertension Anemia Plan: trach care as is Antibiotics per ID HD per renal monitor vitals AC - wean as tolerated, PS 8 AM PT eval, up in chair as tolerated anxiolytics if needed 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 PRN Monitor lab data nutrition feeds Hemodialysis per Renal impression, plan, and exam edited and reviewed in detail care discussed with RN Laboratory Tests Noted: CXR: No acute changes Subjective ROS Limited/Unobtainable: Yes Allergies: Coded Allergies: No Known Allergies (Unverified , 05/28/19) Critical Care - Objective Last 24 Hour Vital Signs Date Time Temp Pulse Resp B/P (MAP) Pulse Ox O2 Delivery O2 Flow Rate FiO2 08/31/19 11:02 90 29 28 28 08/31/19 09:22 87 08/31/19 08:57 95 34 28 28 08/31/19 08:00 98.6 94 22 160/92 (114) 100 08/31/19 08:00 Mechanical Ventilator Mechanical Ventilator 08/31/19 08:00 28 08/31/19 07:12 93 29 28 08/31/19 04:00 99.2 93 34 138/75 (96) 100 08/31/19 04:00 28 08/31/19 04:00 92 08/31/19 04:00 Mechanical Ventilator Mechanical Ventilator 08/31/19 03:20 94 26 28 08/31/19 00:00 28 08/31/19 00:00 99.2 114 32 132/89 (103) 98 08/31/19 00:00 Mechanical Ventilator Mechanical Ventilator 08/30/19 23:35 115 08/30/19 23:30 113 30 28 08/30/19 20:00 28 08/30/19 20:00 98.5 129 34 136/82 (100) 99 08/30/19 20:00 Mechanical Ventilator Mechanical Ventilator 08/30/19 20:00 132 08/30/19 19:30 133 37 28 08/30/19 16:00 28 08/30/19 16:00 99 08/30/19 16:00 Mechanical Ventilator Mechanical Ventilator 08/30/19 16:00 98.0 82 25 149/67 (94) 100 08/30/19 15:40 97 32 28 08/30/19 15:40 100 08/30/19 12:00 28 08/30/19 12:00 82 08/30/19 12:00 Mechanical Ventilator Mechanical Ventilator 08/30/19 12:00 97.9 84 29 141/77 (98) 100 Accucheck: 165 Critical Care - Subjective ROS Limited/Unobtainable: No Condition: stable FI02: 28 Vent Support Breath Rate: 26 Vent Support Mode: CPAP Vent Tidal Volume: 500 Sputum Amount: None PEEP: 5.0 PIP: 14 Tube Feeding Amount: 40 I&O: Intake and Output 08/30/19 08/31/19 19:00 07:00 Intake Total 540 ml 530 ml Balance 540 ml 530 ml Free Water 60 ml 50 ml Tube Feeding 480 ml 480 ml # Bowel Movements 2 5 ET-Tube: 7.5 ET Position: 24 Arturo Mckeon MD Aug 31, 2019 11:29
--- NOTE | 2019-08-31 11:31 | Hematology/Onc Progress Note ---
Assessment/Plan Assessment/Plan Assessment and Recs: # Anemia of chronic disease, likely related ot underlying kidney disease has COIVD19++++++ --> hgb trend 9-->8-->7.3-->7.9-->6.8->9.5-->10->8.3-->7.7-->7.1-->8.9->8.8->7.7 -->8.1 ->7.9-->7.7 -->8.2-->8.1 -->7.9-->8.5 -->9->9.2-->9.5-->10.7 -->9.8--> 10.2-->11.8 -->11.9-->8.8 ->9.4->9-->8.3 -->8.5-->9.4->9.8-->9-->8.3-->11.6--> 10.8-->10.5-->10->9.7->9.9->8.7->8.4->8-->8.5-->8-->8.3->7.9 --> transfuse as needed, hgb goal >7 --> no evidence of hemolysis --> peripheral smear has been reviewed --> epogen started 3 x a week ==>> transfuse 06/08, 06/15 # Leukocytosis likely related to suspected COVID-19 virus infection --> completed plaquenil --> trend smear as needed --> wbc trend: 4-->11-->14.5-->21-->26-->21->24--.28-->23-->19-->16.2-->21--> 11.2 -->12.5-->12.3-->12.4-->18.5-->18.5-->17->13-->18.2-->22.2-->25-->17.4-->17 -->14.2-->14-->16-->15.5-->9->17->11.5-->12->12-->18->15->9.8-->4.3-->5.6 --> pulm is aware --> on abx cefepime/vanc->zosyn/vanc-->dom/vanc-->dom-->levaquin/cefepime--> vanc/zosyn --> vanc --> pressors as needed --> 06/27 covid 19++ --> pressors as needed in icu --> c diff negative 08/08 --> blood cx++ # Thrombocytopenia/Lymphopenia --> likely related to covid19 --> plt 129k-->186k-->251-->285-->384 -->430-->539-->515-->447-->451-->404-->544 -->244 -->393 --> hep panel pending --> hiv negative # Respiratory failure with covid19+ --> s/p vent/trach --> weaning prn # Possible Pneumonia --> abx completed --> 07/13 cxr: Improved right lung infiltrates. # Cardiomegaly # Transaminitis with Elevated AST # COPD # Chronic Kidney Disease --> per renal hd --> s/p right femoral cath 07/02 # Hypertension # peg # Dvt ppx lovenox Appreciate consultation and ernesto Rn Subjective Allergies: Coded Allergies: No Known Allergies (Unverified , 05/28/19) Subjective 06/01 nv, extremely agitated, not allowing labs draws, no night sweats, cbc ordered 06/02 confused, restraints, on abx and plaquenil, hgb 7.9, nrb 15 L 06/03 is with nonrebreather, but not compliant, remains confused 06/05 no bleeding, labs noted, no major bleeding, otherwise comfortable 06/06 labs reviewed, no bleeding, meds noted, no night sweats, on levo and nonrebreather 06/07 labs noted, no bleeding, meds reviewed, no bleeding, wbc higher 06/08 to get 2 units prbc, no night sweats, meds reviewed 06/09 is on cefepime and vanc, labs noted, ernesto Rn, no bleeding 06/10 no major changes, labs reviewed, wbc 28k, on abx, cefepime 06/12 remains in icu, labs noted, no night sweats or bleeding 06/13 sluggish pupils, remains agitated, per psych, no bleding, on vent, wbc sitll high 06/14 still confused, remains on vent, with ng, running nepro, on pressors 06/15 icu, febrile, non verbal, hgb 7.1, blood pending, completed plaq 06/16 remains in the icu, nonverbal, plan for hd tomorrow, ernesto rn 06/17 in icu, on pressor, nonverbal, on abx, no bleeding 06/19 no bleeding, nonverbal in icu, hgb is 7.7 06/20 on zosyn, tube feeds, vent, labs noted, in icu, nv 06/21 gettng hd as per renal, in icu, nv, no bleeding, tfs 06/22 icu, cxr with slight improvement, cooling blanket, weaning today 06/23 wewaning, in icu, on vent, abx, and pressors as needed, labs noted 06/24 failed weaning, off abx, completed plaquenil, hgb 8.1 06/26 icu, weaning for this am, afebrile, hgb 8 06/27 in icu, remains comotose, weaning started on peep, no night sweats 06/28 weaning today, off abx, restraints, no distress, h/h stable 06/29 covid 19+, failed weaning, no blood transfusion needed 06/30 icu, on vent, labs reviewed, no distress 07/01 in icu, may need trach, remains on hd per renal, labs noted 07/02 s/p right fem cath, failed wean, no new orders, h/h stable 07/03 is somewhat more responsive, on abx, no bleeding, weaning and HD today 07/04 hd as per renal, weaning off vent, no bleeding today 07/05 obtunded, no bleding overnight, with hd for tomorrow noted, vanc 07/08 no events, remains with trach/vent, ernesto Rn, no bleeding, cbc is noted 07/09 no overnight events, peg for friday pending consent 07/10 off pressors, vent, restraints, labs reviewed 07/11 no acute events is on pressors, intubated, agitated still 07/12 is resting comfortably, no bleeding, emds reviewed and noted 07/13 icu, no events, trach, cxr reviewed, 07/14 is onv ent, tachypneic and tachycardic, labs noted 07/15 remains confused, intubated, dw Rn, no bleeding 07/17 icu, cxr improving infiltrates, levo gtt, airborne/contact isolation 07/18 is on broad spectrum abx, is on levaquin and cefepime, wbc 16 agitated 07/19 icu, levo gtt, cxr unchanged, tachy, hd thursday 07/20 sedated, safety restraints, labs reviewed 07/21 hd was done yesterday, lower pressor requirements, wbc is worse, on abx 07/22 icu, meds and labs reviewed, vent, no distress 07/24 on vent, in icu, labs noted, remains agitated, and confused 07/25 remains obtunded, on vent, on pressor, hgb 9, wbc elev 07/26 icu, levo gtt, vent, iv abx, nonverbal 07/27 failed weaning, labs reviewed, repeat covid swab pending 07/28 labs are noted, no bleeding, on vent/trach gtube feeds dw rn 07/29 iuc, restraints, no new changes, vent 07/31 is asleep, comfortable, no events, labs reviewed, restraints+ 08/01 no events, agitated, no bleeding, meds noted, on gtube feeds 08/02 remains on vent, no bleeding, wbc higher 19, hgb 9, on abx 08/03 labs noted, on vent, no bleeding, wbc 17, hgb better 08/04 labs reviewed, no bleeding, does not require prbc, on vent 08/05 more alert, is on trach, vent, no major events, no bleeding, peg+ 08/07 no bleeding no chills, no night sweats, is on vent/trach 08/08 recent covid swab negative, restraints, cxr unchanged 08/09 c diff negative, zosyn, hd today, gtf 08/10 no overnight events, labs reviewed, afebrile 08/11 labs reviewed, meds noted, no fc, no major changes, wbc 12 08/12 abx changed to flucon, on abx, wbc 12 08/14 bp on low end, blood cx++, vanc, vent 08/15 no bleeding, no night sweats, on abx, trach/vent 08/16 is able to nod head in response to question, labs noted, on vent/trach 08/17 labs reviewed, hgb 9.8, no bleeding, on abx, meds noted 08/18 labs noted, no bleeding, hgb stable, 9.9, mildly alert 08/19 labs are noted, no bleeding, meds reviewed, line holiday per surg 08/21 labs noted, meds reviewed, no bleeding hgb 8.7 08/22 labs reviewed, no bleeding, meds noted, no night sweats hgb 8.4 08/23 labs ar enoted, no bleeidng, hgb 8, no hemolysis, with rectal tube 08/24 labs reviewed, no bleeding, no night sweats, hgb 8 08/25 no events, hiv negative, hep panel pending, on vanc 08/26 remains confused, is on vent, no bleding, dw rn 08/28 is comfortable, no bleeding, dw rn, no night sweats 08/29 alert is tracking, no bleeding, meds reviewed, s/p peg/trach 08/30 labs are noted, no bleeding, meds reviewed, peg/trach Objective Objective Current Medications Medications (Trade) Dose Ordered Sig/Anthony Route PRN Reason Start Time Stop Time Status Last Admin Dose Admin Acetaminophen (Tylenol) 650 mg Q4H PRN NG For Pain 08/04/19 21:38 09/03/19 21:37 08/30/19 20:31 Acetaminophen (Tylenol) 650 mg Q4H PRN NG Temp >100.5 08/15/19 13:30 09/08/19 08:29 08/23/19 23:24 Chlorhexidine Gluconate (Michelle-Hex 2%) 1 applic DAILY@1999 TOPIC 08/21/19 20:00 11/19/19 19:59 08/30/19 20:30 Dextrose (Dextrose 50%) 25 ml Q30M PRN IV Hypoglycemia 08/04/19 22:00 09/18/19 19:29 Dextrose (Dextrose 50%) 50 ml Q30M PRN IV Hypoglycemia 08/04/19 22:00 09/18/19 19:29 Diphenoxylate HCl/ Atropine (Lomotil) 2.5 mg BID NG 08/24/19 18:00 09/17/19 17:59 08/31/19 08:58 Enoxaparin Sodium (Lovenox) 30 mg DAILY SUBQ 08/05/19 09:00 09/25/19 08:59 08/31/19 08:59 Epoetin Aftab (Epoetin Aftab(ESRD on dialysis)) 10,000 unit SUBQ 08/11/19 21:00 11/09/19 20:59 08/30/19 20:30 Fluconazole (Diflucan) 200 mg DAILY NG 08/13/19 10:24 09/21/19 23:59 08/31/19 08:58 Haloperidol Lactate 5 mg/ Dextrose 56 ml @ 224 mls/hr Q6H PRN IVPB Agitation 08/04/19 21:38 09/18/19 21:37 08/19/19 02:26 Hydralazine HCl (Apresoline) 10 mg Q4H PRN IV Blood pressure over 160 systol 08/04/19 21:39 11/02/19 21:38 Insulin Aspart (NovoLOG) EVERY 6 HOURS SUBQ 08/05/19 00:00 09/19/19 00:00 08/31/19 05:56 Loperamide HCl (Imodium) 2 mg Q6H NG 08/18/19 14:00 09/15/19 13:59 08/31/19 08:59 Midodrine (Pro-Amatine) 10 mg THREE TIMES A DAY NG 08/15/19 18:00 11/13/19 17:59 08/26/19 18:09 Last 24 Hour Vital Signs Date Time Temp Pulse Resp B/P (MAP) Pulse Ox O2 Delivery O2 Flow Rate FiO2 08/31/19 11:02 90 29 28 28 08/31/19 09:22 87 08/31/19 08:57 95 34 28 28 08/31/19 08:00 98.6 94 22 160/92 (114) 100 08/31/19 08:00 Mechanical Ventilator Mechanical Ventilator 08/31/19 08:00 28 08/31/19 07:12 93 29 28 08/31/19 04:00 99.2 93 34 138/75 (96) 100 08/31/19 04:00 28 08/31/19 04:00 92 08/31/19 04:00 Mechanical Ventilator Mechanical Ventilator 08/31/19 03:20 94 26 28 08/31/19 00:00 28 08/31/19 00:00 99.2 114 32 132/89 (103) 98 08/31/19 00:00 Mechanical Ventilator Mechanical Ventilator 08/30/19 23:35 115 08/30/19 23:30 113 30 28 08/30/19 20:00 28 08/30/19 20:00 98.5 129 34 136/82 (100) 99 08/30/19 20:00 Mechanical Ventilator Mechanical Ventilator 08/30/19 20:00 132 08/30/19 19:30 133 37 28 08/30/19 16:00 28 08/30/19 16:00 99 08/30/19 16:00 Mechanical Ventilator Mechanical Ventilator 08/30/19 16:00 98.0 82 25 149/67 (94) 100 08/30/19 15:40 97 32 28 08/30/19 15:40 100 08/30/19 12:00 28 08/30/19 12:00 82 08/30/19 12:00 Mechanical Ventilator Mechanical Ventilator 08/30/19 12:00 97.9 84 29 141/77 (98) 100 08/30/19 10:50 92 30 28 08/30/19 08:00 28 08/30/19 08:00 73 08/30/19 08:00 Mechanical Ventilator Mechanical Ventilator 08/30/19 08:00 97.2 83 22 128/73 (91) 100 08/30/19 07:10 85 30 28 08/30/19 04:00 28 08/30/19 04:00 Mechanical Ventilator Mechanical Ventilator 08/30/19 04:00 98.2 75 25 125/73 (90) 100 08/30/19 03:27 76 08/30/19 02:50 76 26 28 08/30/19 00:00 Mechanical Ventilator Mechanical Ventilator 08/30/19 00:00 28 08/30/19 00:00 75 08/30/19 00:00 98.1 76 25 116/66 (83) 100 08/29/19 23:30 75 08/29/19 22:35 83 26 28 08/29/19 20:00 81 7/19/20 20:00 Mechanical Ventilator Mechanical Ventilator 08/29/19 20:00 98.2 78 26 135/77 (96) 100 08/29/19 19:40 83 28 28 08/29/19 16:23 28 08/29/19 16:23 100 08/29/19 16:23 93 27 28 08/29/19 16:00 28 08/29/19 16:00 Mechanical Ventilator Mechanical Ventilator 08/29/19 16:00 97.7 97 26 142/89 (106) 100 08/29/19 16:00 92 08/29/19 12:00 Mechanical Ventilator Mechanical Ventilator 08/29/19 12:00 28 08/29/19 12:00 98.2 93 26 126/79 (95) 100 08/29/19 12:00 89 Intake and Output 08/30/19 08/31/19 19:00 07:00 Intake Total 540 ml 530 ml Balance 540 ml 530 ml Free Water 60 ml 50 ml Tube Feeding 480 ml 480 ml # Bowel Movements 2 5 Labs Test 08/28/19 11:55 08/28/19 16:47 08/29/19 05:42 08/29/19 06:26 POC Whole Blood Glucose 151 MG/DL (74-106) 116 MG/DL (74-106) White Blood Count 5.6 K/UL (4.8-10.8) Red Blood Count 3.16 M/UL (4.70-6.10) Hemoglobin 8.3 G/DL (14.2-18.0) Hematocrit 28.4 % (42.0-52.0) Mean Corpuscular Volume 90 FL (80-99) Mean Corpuscular Hemoglobin 26.4 PG (27.0-31.0) Mean Corpuscular Hemoglobin Concent 29.4 G/DL (32.0-36.0) Red Cell Distribution Width 17.9 % (11.6-14.8) Platelet Count 419 K/UL (150-450) Mean Platelet Volume 6.3 FL (6.5-10.1) Neutrophils (%) (Auto) % (45.0-75.0) Lymphocytes (%) (Auto) % (20.0-45.0) Monocytes (%) (Auto) % (1.0-10.0) Eosinophils (%) (Auto) % (0.0-3.0) Basophils (%) (Auto) % (0.0-2.0) Differential Total Cells Counted 100 Neutrophils % (Manual) 30 % (45-75) Lymphocytes % (Manual) 40 % (20-45) Monocytes % (Manual) 25 % (1-10) Eosinophils % (Manual) 5 % (0-3) Basophils % (Manual) 0 % (0-2) Band Neutrophils 0 % (0-8) Nucleated Red Blood Cells 1 /100 WBC Platelet Estimate Adequate Platelet Morphology Normal Hypochromasia 2+ Anisocytosis 1+ Sodium Level 138 MMOL/L (136-145) Potassium Level 3.3 MMOL/L (3.5-5.1) Chloride Level 101 MMOL/L (98-107) Carbon Dioxide Level 27 MMOL/L (21-32) Anion Gap 11 mmol/L (5-15) Blood Urea Nitrogen 26 mg/dL (7-18) Creatinine 4.9 MG/DL (0.55-1.30) Estimat Glomerular Filtration Rate 11.9 mL/min (>60) Glucose Level 112 MG/DL (74-106) Calcium Level 9.8 MG/DL (8.5-10.1) Phosphorus Level 2.3 MG/DL (2.5-4.9) Magnesium Level 2.0 MG/DL (1.8-2.4) Total Bilirubin 0.3 MG/DL (0.2-1.0) Aspartate Amino Transf (AST/SGOT) 22 U/L (15-37) Alanine Aminotransferase (ALT/SGPT) 15 U/L (12-78) Alkaline Phosphatase 90 U/L (46-116) Total Protein 8.4 G/DL (6.4-8.2) Albumin 2.7 G/DL (3.4-5.0) Globulin 5.7 g/dL Random Vancomycin Level 20.0 ug/mL Test 08/29/19 11:50 08/29/19 16:40 08/30/19 00:38 08/30/19 05:39 POC Whole Blood Glucose 127 MG/DL (74-106) 145 MG/DL (74-106) 145 MG/DL (74-106) Test 08/30/19 11:23 08/30/19 16:39 08/31/19 04:25 POC Whole Blood Glucose 138 MG/DL (74-106) 136 MG/DL (74-106) White Blood Count 10.6 K/UL (4.8-10.8) Red Blood Count 2.90 M/UL (4.70-6.10) Hemoglobin 7.9 G/DL (14.2-18.0) Hematocrit 26.0 % (42.0-52.0) Mean Corpuscular Volume 90 FL (80-99) Mean Corpuscular Hemoglobin 27.1 PG (27.0-31.0) Mean Corpuscular Hemoglobin Concent 30.2 G/DL (32.0-36.0) Red Cell Distribution Width 18.1 % (11.6-14.8) Platelet Count 427 K/UL (150-450) Mean Platelet Volume 6.0 FL (6.5-10.1) Neutrophils (%) (Auto) % (45.0-75.0) Lymphocytes (%) (Auto) % (20.0-45.0) Monocytes (%) (Auto) % (1.0-10.0) Eosinophils (%) (Auto) % (0.0-3.0) Basophils (%) (Auto) % (0.0-2.0) Sodium Level 138 MMOL/L (136-145) Potassium Level 4.4 MMOL/L (3.5-5.1) Chloride Level 100 MMOL/L (98-107) Carbon Dioxide Level 25 MMOL/L (21-32) Anion Gap 13 mmol/L (5-15) Blood Urea Nitrogen 26 mg/dL (7-18) Creatinine 5.0 MG/DL (0.55-1.30) Estimat Glomerular Filtration Rate 11.6 mL/min (>60) Glucose Level 109 MG/DL (74-106) Calcium Level 9.8 MG/DL (8.5-10.1) Phosphorus Level 2.8 MG/DL (2.5-4.9) Magnesium Level 2.0 MG/DL (1.8-2.4) Total Bilirubin 0.2 MG/DL (0.2-1.0) Aspartate Amino Transf (AST/SGOT) 23 U/L (15-37) Alanine Aminotransferase (ALT/SGPT) 18 U/L (12-78) Alkaline Phosphatase 92 U/L (46-116) Total Protein 7.9 G/DL (6.4-8.2) Albumin 2.8 G/DL (3.4-5.0) Globulin 5.1 g/dL Albumin/Globulin Ratio 0.5 (1.0-2.7) Height (Feet): 6 Height (Inches): 1.00 Weight (Pounds): 172 Objective General: nv, confused, sedated Heent: bilateral eye normal inspection, bilateral eye PERRL ++Ng Respiratory: normal breath sounds, no respiratory distress, intubated/vent +++ trach+++ Cardiovascular: regular rate, rhythm, no edema Gastrointestinal: normal inspection, soft, non-distended, peg+ Rectal: deferred Musculoskeletal: normal range of motion, non-tender, R fem cath++ Neurologic: alert, motor strength/tone normal, sensory intact, responsive, speech normal Skin: Decubitus/Ulcer - See RN skin exam. : jamaal+ Greg Cabral MD Aug 31, 2019 11:31
--- NOTE | 2019-08-31 11:56 | Cardiac Electrophysiology PN ---
Assessment/Plan Assessment/Plan 1. NSTEMI type 2. Low level and flat due to renal failure. On Aspirin. EF 60% . 2. S/P Septic shock. On Abx and Midodrine 10 tid. 3. ESRD, on HD per Dr. Cole. HD today 4. VDRF due to COVID pneumonia. S/P Tracheostomy 07/08/19. 5. Atrial fib with RVR. Off Lopressor for Low BP, in SR 6. Dysphagia, S/P PEG 07/13/19 7. COPD. 8. Anemia. 9. Diarrhea 10. COVID19 pneumonia Positive: 05/27, 05/31 , 06/05, 06/09 ,06/17,06/19, 06/23, 06/27, 07/03, 07/15, 07/29 Negative: 07/26, 08/04, 08/05 DW RN Subjective Subjective In SDU on the vent via trach. Off isolation as Covid negative on 08/07/19. Placement pending. HD pending today Objective Last 24 Hour Vital Signs Date Time Temp Pulse Resp B/P (MAP) Pulse Ox O2 Delivery O2 Flow Rate FiO2 08/31/19 11:02 90 29 28 28 08/31/19 09:22 87 08/31/19 08:57 95 34 28 28 08/31/19 08:00 98.6 94 22 160/92 (114) 100 08/31/19 08:00 Mechanical Ventilator Mechanical Ventilator 08/31/19 08:00 28 08/31/19 07:12 93 29 28 08/31/19 04:00 99.2 93 34 138/75 (96) 100 08/31/19 04:00 28 08/31/19 04:00 92 08/31/19 04:00 Mechanical Ventilator Mechanical Ventilator 08/31/19 03:20 94 26 28 08/31/19 00:00 28 08/31/19 00:00 99.2 114 32 132/89 (103) 98 08/31/19 00:00 Mechanical Ventilator Mechanical Ventilator 08/30/19 23:35 115 08/30/19 23:30 113 30 28 08/30/19 20:00 28 08/30/19 20:00 98.5 129 34 136/82 (100) 99 08/30/19 20:00 Mechanical Ventilator Mechanical Ventilator 08/30/19 20:00 132 08/30/19 19:30 133 37 28 08/30/19 16:00 28 08/30/19 16:00 99 08/30/19 16:00 Mechanical Ventilator Mechanical Ventilator 08/30/19 16:00 98.0 82 25 149/67 (94) 100 08/30/19 15:40 97 32 28 08/30/19 15:40 100 08/30/19 12:00 28 08/30/19 12:00 82 08/30/19 12:00 Mechanical Ventilator Mechanical Ventilator 08/30/19 12:00 97.9 84 29 141/77 (98) 100 Intake and Output 08/30/19 08/31/19 19:00 07:00 Intake Total 540 ml 530 ml Balance 540 ml 530 ml Free Water 60 ml 50 ml Tube Feeding 480 ml 480 ml # Bowel Movements 2 5 Laboratory Tests Test 08/30/19 16:39 08/31/19 04:25 POC Whole Blood Glucose 136 MG/DL (74-106) H White Blood Count 10.6 K/UL (4.8-10.8) Red Blood Count 2.90 M/UL (4.70-6.10) L Hemoglobin 7.9 G/DL (14.2-18.0) L Hematocrit 26.0 % (42.0-52.0) L Mean Corpuscular Volume 90 FL (80-99) Mean Corpuscular Hemoglobin 27.1 PG (27.0-31.0) Mean Corpuscular Hemoglobin Concent 30.2 G/DL (32.0-36.0) L Red Cell Distribution Width 18.1 % (11.6-14.8) H Platelet Count 427 K/UL (150-450) Mean Platelet Volume 6.0 FL (6.5-10.1) L Neutrophils (%) (Auto) % (45.0-75.0) Lymphocytes (%) (Auto) % (20.0-45.0) Monocytes (%) (Auto) % (1.0-10.0) Eosinophils (%) (Auto) % (0.0-3.0) Basophils (%) (Auto) % (0.0-2.0) Sodium Level 138 MMOL/L (136-145) Potassium Level 4.4 MMOL/L (3.5-5.1) Chloride Level 100 MMOL/L (98-107) Carbon Dioxide Level 25 MMOL/L (21-32) Anion Gap 13 mmol/L (5-15) Blood Urea Nitrogen 26 mg/dL (7-18) H Creatinine 5.0 MG/DL (0.55-1.30) H Estimat Glomerular Filtration Rate 11.6 mL/min (>60) Glucose Level 109 MG/DL (74-106) H Calcium Level 9.8 MG/DL (8.5-10.1) Phosphorus Level 2.8 MG/DL (2.5-4.9) Magnesium Level 2.0 MG/DL (1.8-2.4) Total Bilirubin 0.2 MG/DL (0.2-1.0) Aspartate Amino Transf (AST/SGOT) 23 U/L (15-37) Alanine Aminotransferase (ALT/SGPT) 18 U/L (12-78) Alkaline Phosphatase 92 U/L (46-116) Total Protein 7.9 G/DL (6.4-8.2) Albumin 2.8 G/DL (3.4-5.0) L Globulin 5.1 g/dL Albumin/Globulin Ratio 0.5 (1.0-2.7) L Objective HEAD AND NECK: No JVD. Tracheostomy in place. Left SC Kamlesh now in place. LUNGS: Decreased breath sounds. CARDIOVASCULAR: Regular S1 and S2. Tachycardic. ABDOMEN: Soft. PEG in place EXTREMITIES: No pitting edema. Gio Baker MD Aug 31, 2019 11:56
--- NOTE | 2019-08-31 11:59 | Surgery Progress Note ---
Surgery Progress Note Subjective Procedure Performed Insertion of left subclavian temporary hemodialysis catheter Tracheostomy exchange 8 Cymraes Sharee Additional Comments improving no n/v/f/c labs noted line okay plan another permacath Objective Last 24 Hour Vital Signs Date Time Temp Pulse Resp B/P (MAP) Pulse Ox O2 Delivery O2 Flow Rate FiO2 08/31/19 11:02 90 29 28 28 08/31/19 09:22 87 08/31/19 08:57 95 34 28 28 08/31/19 08:00 98.6 94 22 160/92 (114) 100 08/31/19 08:00 Mechanical Ventilator Mechanical Ventilator 08/31/19 08:00 28 08/31/19 07:12 93 29 28 08/31/19 04:00 99.2 93 34 138/75 (96) 100 08/31/19 04:00 28 08/31/19 04:00 92 08/31/19 04:00 Mechanical Ventilator Mechanical Ventilator 08/31/19 03:20 94 26 28 08/31/19 00:00 28 08/31/19 00:00 99.2 114 32 132/89 (103) 98 08/31/19 00:00 Mechanical Ventilator Mechanical Ventilator 08/30/19 23:35 115 08/30/19 23:30 113 30 28 08/30/19 20:00 28 08/30/19 20:00 98.5 129 34 136/82 (100) 99 08/30/19 20:00 Mechanical Ventilator Mechanical Ventilator 08/30/19 20:00 132 08/30/19 19:30 133 37 28 08/30/19 16:00 28 08/30/19 16:00 99 08/30/19 16:00 Mechanical Ventilator Mechanical Ventilator 08/30/19 16:00 98.0 82 25 149/67 (94) 100 08/30/19 15:40 97 32 28 08/30/19 15:40 100 08/30/19 12:00 28 08/30/19 12:00 82 08/30/19 12:00 Mechanical Ventilator Mechanical Ventilator 08/30/19 12:00 97.9 84 29 141/77 (98) 100 I&O Intake and Output 08/30/19 08/31/19 19:00 07:00 Intake Total 540 ml 530 ml Balance 540 ml 530 ml Free Water 60 ml 50 ml Tube Feeding 480 ml 480 ml # Bowel Movements 2 5 Cardiovascular: RSR Respiratory: clear Abdomen: soft, non-tender, present bowel sounds Extremities: no tenderness, no cyanosis Laboratory Tests Test 08/30/19 16:39 08/31/19 04:25 POC Whole Blood Glucose 136 MG/DL (74-106) H White Blood Count 10.6 K/UL (4.8-10.8) Red Blood Count 2.90 M/UL (4.70-6.10) L Hemoglobin 7.9 G/DL (14.2-18.0) L Hematocrit 26.0 % (42.0-52.0) L Mean Corpuscular Volume 90 FL (80-99) Mean Corpuscular Hemoglobin 27.1 PG (27.0-31.0) Mean Corpuscular Hemoglobin Concent 30.2 G/DL (32.0-36.0) L Red Cell Distribution Width 18.1 % (11.6-14.8) H Platelet Count 427 K/UL (150-450) Mean Platelet Volume 6.0 FL (6.5-10.1) L Neutrophils (%) (Auto) % (45.0-75.0) Lymphocytes (%) (Auto) % (20.0-45.0) Monocytes (%) (Auto) % (1.0-10.0) Eosinophils (%) (Auto) % (0.0-3.0) Basophils (%) (Auto) % (0.0-2.0) Sodium Level 138 MMOL/L (136-145) Potassium Level 4.4 MMOL/L (3.5-5.1) Chloride Level 100 MMOL/L (98-107) Carbon Dioxide Level 25 MMOL/L (21-32) Anion Gap 13 mmol/L (5-15) Blood Urea Nitrogen 26 mg/dL (7-18) H Creatinine 5.0 MG/DL (0.55-1.30) H Estimat Glomerular Filtration Rate 11.6 mL/min (>60) Glucose Level 109 MG/DL (74-106) H Calcium Level 9.8 MG/DL (8.5-10.1) Phosphorus Level 2.8 MG/DL (2.5-4.9) Magnesium Level 2.0 MG/DL (1.8-2.4) Total Bilirubin 0.2 MG/DL (0.2-1.0) Aspartate Amino Transf (AST/SGOT) 23 U/L (15-37) Alanine Aminotransferase (ALT/SGPT) 18 U/L (12-78) Alkaline Phosphatase 92 U/L (46-116) Total Protein 7.9 G/DL (6.4-8.2) Albumin 2.8 G/DL (3.4-5.0) L Globulin 5.1 g/dL Albumin/Globulin Ratio 0.5 (1.0-2.7) L Plan Problems: (1) Suspected COVID-19 virus infection (2) HTN (hypertension) (3) CASSANDRA (acute kidney injury) Assessment & Plan: Needs urgent HD needs access patient okay and consented see note will follow with recs new line placed discussed with team and nephrology HD line functional when checked has TPA now please use appropriately Cathflo used again this flow during dialysis on 430 was low. Will monitor may need line change 5/4 plan for HD as per renal may need to take fluid off with HD edema anasarca dressings saturated and changed will monitor cont with HD IJ left line placed for HD given extent of prior line in place. leukocytosis blood cx negative may need to change out line new line okay HD going well Continue HD as tolerated May need pressors for HD as needed (4) Anemia in chronic kidney disease (CKD) (5) Anemia (6) Renal failure (7) Suspected COVID-19 virus infection Assessment & Plan: Pt deconditioned and despite all skin preventions Pt noted to have developed several pressure injuries. . Stable dry eschar noted to clefts of R and L ears. No erythema noted . DTPI noted to L trochanter. Base of injury is maroon in colour with marginal erythema along borders. Partially opened DTPI Sacrum, R and L Buttocks. Base of wound is maroon with two small open wounds L sacrum and L buttocks. Pt has an APM/MOMO Mattress overlay and is being positioned with pillows as per tolerance and within protocols. worsening despite medical efforts will cont to provide therapy Tx.Plan: Apply Cavilon Skin Barrier to both ears Daily and prn. Apply Moisture Barrier Paste to Sacrum,R and L Buttocks. Cover with Optifoam drsgs. Change every 3 days and PRN. Apply Cavilon Skin Barrier to R and L trochanter. Cover each site with Optifoam drsgs.Change every 7 days and PRN. Apply Cavilon Skin Barrier to both heels. Cover each heel with Optifoam drsg. Change every 7 days and prn. Off-load heels with pillow. Reposition at least every 2hours or as tolerated. APM/MOMO Mattress overlay. (8) COVID-19 Assessment & Plan: COVID + c diff negative febrile leukocytosis renal insufficiency see above cont resp care Rx as per ID worsening on vent support now cxr noted on pressors prognosis guarded repeat covid ++ weaning vent and pressors off slowly showing improvement slowly recovering will need trach as unable to wean vent safely called and spoke with [facility]. consent obtained s/p trach pending peg worsening on levo max (9) Sepsis Assessment & Plan: worsening leukocytosis febrile on pressors discussed with ID. lines evaluated and clean. he is septic on pressors and needs central access in difficult venous access patient blood cultures negative will monitor temp HD cath out now with permacath left tlc still subclavian needed line c/d/i line negative c diff negative wbc resolved improved d/c planning febrile leukocytosis hold d/c infectious work up in place yeast in cultures fevers persistent fungemia abx as per ID hold on line removal cont abx repeat cx Plan for line removal plan for line holiday will replace dialysis catheter PRN Hemodialysis line change August 20 Tracheostomy exchange 8 Cymraes Shiley due to balloon insufficiency August 20 Yaniv Mast Aug 31, 2019 11:59
[2019-08-31 12:00] VITALS: BP 128/86
--- NOTE | 2019-08-31 14:30 | Nephrology Progress Note ---
Assessment/Plan Problem List: (1) CASSANDRA (acute kidney injury) (2) Anemia in chronic kidney disease (CKD) (3) HTN (hypertension) (4) COVID-19 Assessment Acute renal failure most likely superimposed on chronic kidney disease Suspected COVID-19 virus infection Possible Pneumonia, lymphopenia, elevated AST Cardiomegaly, possible CHF COPD Hypertension Anemia, most likely related to chronic kidney disease Plan August 30: Due for dialysis today. Stable from renal standpoint of view. August 29: Next dialysis tomorrow August 30. No labs done today. Continue her consultants. August 28: Dialyzed yesterday August 27. Today's labs reviewed. Potassium supplement given. Aim to dialyse on August 30 next. August 27: Dialysis today. Blood pressure stable. No labs drawn today. Continue per consultants. August 26: Dialysis tomorrow August 27. Blood pressure is stable. Aim to ultrafiltrate 1 L. Labs reviewed. Continue per consultants. August 25: Dialyzed yesterday. No UF. Blood pressure is stable. Potassium supplement given. Next hemodialysis planned for August 27. Will order sooner if needed. August 24: No chemistry panel today. Due for dialysis today. Blood pressure stable. August 23: Labs reviewed. Potassium supplement given. Blood pressure is stable. Due for dialysis tomorrow. No ultrafiltration will be done. August 22: Patient was dialyzed yesterday. Pressure low today. 500 cc albumin ordered. Continue to monitor renal parameters. Continue to be on Midodrin. August 21: A temporary catheter for dialysis was put in yesterday, and the patient is due for dialysis today. Continue per consultants. August 20: Patient due for insertion of a temporary dialysis catheter. I ordered dialysis for tomorrow August 21. Continue per consultants. Discussed with RN"Janice " August 19: Permacath discontinued. Due for temporary non-tunneled dialysis access. White blood cells are up to over 14,000. Will dialyze as needed. August 18: Discussed with ID and general surgery. Will remove the permacath which is thought to be infected by IR today. Will monitor renal parameters. Will obtain surveillance cultures tomorrow. Will attempt to put a temporary dialysis access in 48 to 72 hours for dialysis purposes. August 17: Last dialysis August 15, no blood work done today yet. Will reassess if dialysis should be continued. Continue per current management. We will make arrangement to DC permacath and reinsert a new one via general surgery and or interventional radiology August 16: Albumin for low BP. Continue to monitor renal parameters. August 15: Due for dialysis today. Remains borderline low. No ultrafiltration during dialysis. Discussed with SHANIQUE Macdonald. August 14: No labs done today. Patient hypotensive. Normal saline and albumin bolus given. Midodrin started. Will check lab tomorrow. August 13: Lab reviewed. Last dialysis yesterday. Next dialysis August 15. Potassium and phosphorus supplement given. Continue per consultants. August 12: No can panel done today. Due for dialysis today. Continue per consultants. August 11: Patient labs reviewed. Will order dialysis tomorrow. Continue per consultants. August 10: Patient was dialyzed yesterday. Today's labs checked. Stable from renal standpoint to view August 09: Patient scheduled for hemodialysis today. Will check labs tomorrow. August 08: Lab reviewed. Hemodialysis scheduled for tomorrow. August 07: Dialyzed yesterday. No labs drawn today. Will check labs tomorrow. Continue per consultants. August 06: Patient on dialysis now. Discussed with dialysis nurse. Slight catheter malfunction persist. August 05: Labs reviewed. Dialysis scheduled for tomorrow. Continue per consultants. August 04: No labs done today. Dialyzed yesterday. Check labs tomorrow. Continue per consultants. August 03: Lab reviewed. Due for dialysis today. White blood cell 17,500. August 02: Lab reviewed. Low phosphorus replaced. Hemodialysis ordered for tomorrow. White blood cells over 18,000. August 01: Labs reviewed. Potassium replacement ordered. Remains full code on ventilator via trach. Continue per consultants. July 31: Dialyzed yesterday. No can panel today. Remains full code. Remains on ventilator. Being fed through PEG. Continue per consultants. July 30: Patient due for dialysis today. Labs are reviewed. Remains full code. Status post trach to ventilator. Status post PEG. July 29: Patient dialyzed yesterday. Due for dialysis tomorrow. Remains in ICU. Full code. Status post trach tube to ventilator. Status post PEG. July 28: Due for dialysis today. Labs reviewed. Full code. Patient trached and vented. July 27: Last COVID test negative. COVID test will be repeated tomorrow. Will order dialysis tomorrow. Remains full code. Medication list and labs reviewed. July 26: No labs done today. Dialysis done yesterday. Will check lab tomorrow. Dialysis as needed. July 25: Lab reviewed. Dialysis today. Discussed with RN. July 24: Lab reviewed. Do dialysis tomorrow. Discussed with RN. July 23: Lab reviewed. Dialyzed yesterday. Discussed with RN. Remains full code. Next dialysis July 25. Will check labs tomorrow. July 22: Labs reviewed. Due for dialysis today. Discussed with RN. Watch borderline low blood pressure. Discussed with dialysis nurse. July 21: Today's lab reviewed. Will arrange for dialysis tomorrow. Discussed with RN. Aim to keep the blood pressure above 100 systolic. Continue per consultants. July 20: Patient was dialyzed yesterday. Could not ultrafiltrate much due to low blood pressure. Discussed with SHANIQUE Dick today. No labs drawn today. Continue per consultants. July 19: Due for dialysis today. Discussed with SHANIQUE Dick. Continue per consultants. July 18: Dialyzed July 16. Will order dialysis tomorrow July 19. Continues to be on ventilator through trach. No labs done today. Continue per consultants. July 17: Dialyzed yesterday. Stable from renal standpoint of view. Remains full code. Status post trach on vent. Status post PEG. Continue per consultants. July 16: Dialysis today. Will resume Midodrin to prevent hypotension. Patient remains full code. July 15: Dialyzed yesterday, due for dialysis tomorrow. Labs and medication list reviewed. Continue per consultants. Patient remains full code. COVID-19 detected again. July 14: Patient currently on dialysis. This is continuation of dialysis from yesterday as yesterday's dialysis was cut short due to catheter malfunction. Labs and medication reviewed. Continue per consultants. July 13: Patient currently on hemodialysis. The dialysis catheter which is a intrajugular Kamlesh has poor flow. Will try TPA. Continue per consultants. July 12: Due for PEG today. Due for dialysis tomorrow. Continue per consultants. Discussed with RN. July 11: Plan for dialysis today. Discussed with RN. Data reviewed. July 10: Plan for dialysis tomorrow July 11. Waiting for consent to proceed with PEG. Continue per consultants. Medication reviewed. Labs reviewed. Discussed with RN. July 09: Dialyzed yesterday. Labs reviewed. Medication reviewed. Next hemodialysis July 11. July 08: Patient has tracheostomy now. Connected to ventilator. Due for dialysis today. Continue per consultants. Discussed with SHANIQUE Romero. July 07: Patient is due for tracheostomy today. Patient was last dialyzed July 05. Will order dialysis for tomorrow. July 06: Patient is intubated on ventilator however the plan is to extubate today. Patient was dialysis yesterday July 05. The dialysis time was cut short due to patient's respiratory distress. Only 1 L was removed during dialysis yesterday. Today's lab reviewed. Continue per consultants. Will arrange for dialysis as needed. July 05: Patient due for dialysis today. Remains intubated. Will schedule permacath placement in a.m. blood cultures on July 04 are negative. July 04: Patient was dialyzed yesterday. Due for dialysis tomorrow. Continues to be intubated. After tomorrow's dialysis will order a permacath. July 03: Dialysis is about to be started now Continues to be intubated Will plan to remove the femoral dialysis catheter and exchanged for a new temporary catheter per ID recommendation We will check surveillance blood culture tomorrow July 02: Patient was dialyzed yesterday and due for dialysis tomorrow Stable from renal standpoint W on dialysis Continue per consultants, weaning....... etc. July 01: Dialysis today Other status unchanged June 30: Due for dialysis tomorrow Remains intubated on ventilator Labs and medication reviewed Discussed with SHANIQUE Stable from renal standpoint of view June 29: Dialyzed yesterday Due for dialysis tomorrow Stable from renal standpoint to view Keeps failing weaning process June 28: Patient due for dialysis today Stable from renal standpoint to view Continue per consultants June 27: Labs reviewed Due due for dialysis June 28 Discussed with SHANIQUE Dick Continue per consultants Remains intubated on ventilator June 26 Labs reviewed Dialyzed yesterday Started on weaning today Continue to monitor renal parameters June 25: On dialysis now Potassium supplement implemented Continue per consultants Next dialysis June 27June 15: Status unchanged Dialyzed yesterday will dialyze again tomorrow Potassium supplements given Discussed with RN June 14: Due dialysis today Status: Remains intubated on ventilator June 22: Status unchanged Dialyzed yesterday and duefordialysistomorrow Serum sodium stable today June 21 Remains intubated on ventilator Due dialysis today Emphasized high sodium bath for dialysis June 20: Remains intubated on ventilator Dialyzed June 19 next dialysis June 21 Serum sodium 128, will give 250 cc 3% saline Remains full code Discussed with RN Iron panel ordered June 19: Discussed with RN. Patient due for dialysis today. Continue pulmonary support. Remains full code. June 18: Patient dialyzed yesterday June 17 Serum sodium improved but still low Arrange for dialysis tomorrow June 19 Continue per consultants June 17: Due for dialysis today Today's lab reviewed, low serum sodium noted, Emphasized on high sodium bath to dialysis nurse Discussed with SHANIQUE Yuen June 16: Dialyzed yesterday Remains intubated Labs reviewed, serum sodium 131 Plan to dialyze tomorrow June 17 with high sodium bath Discussed with SHANIQUE Yuen June 15: Due for dialysis today Labs reviewed Discussed with RN Transfuse 1 unit of packed RBCs today for low hemoglobin of 7.1 June 5: Blood pressure well maintained Receive dialysis June 13 next hemodialysis June 15June 4: Discussed with RN in ICU Patient did not receive proper dialysis yesterday due to dialysis catheter malfunction Catheter to be adjusted today and dialyzed to be resumed today Continue per consultants Positive for COVID 28 June 2: Patient now intubated on mechanical ventilation Discussed with SHANIQUE Yuen, today June 12 Patient received dialysis yesterday June 10 next hemodialysis June 12 Blood pressure better maintained Today's labs reviewed Continue per consultants Previously patient received dialysis last evening June 05, next dialysis June 07 which was incomplete due to patient's hypotension Will start on midodrine for blood pressure support. Meanwhile continue other pressors as needed Previously Patient is doing poorly, septic, white blood cells are rising, Hypotension somewhat improved We will keep n.p.o. , NG tube for medications, and change medication to IV as needed Patient remains full code Monitor vancomycin level Previously: Patient pulled out his femoral catheter yesterday June 03 which was reinserted by Dr. Mast Patient scheduled for dialysis again June 04, which again was not done due to dialysis nurse citing catheter malfunction Meanwhile continue management per ID, pulmonary , and psych. Meanwhile white blood cell count is rising. Patient blood pressure borderline low. Will check ABG Previously May 31 : I believe patient need dialysis treatment He however needs to competency assessment if can make decisions or not I will communicate with Dr. Mulligan Previously: Per pulmonary and ID advice Adjust blood pressure medication Renal diet Anemia work-up 2D echocardiogram refused Kidney ultrasound refused Jules catheter Urine studies Per orders Subjective ROS Limited/Unobtainable: Yes Objective Objective Last 24 Hour Vital Signs Date Time Temp Pulse Resp B/P (MAP) Pulse Ox O2 Delivery O2 Flow Rate FiO2 08/31/19 12:00 Mechanical Ventilator Mechanical Ventilator 08/31/19 12:00 28 08/31/19 12:00 97.0 88 22 128/86 (100) 98 08/31/19 12:00 83 08/31/19 11:02 90 29 28 28 08/31/19 09:22 87 08/31/19 08:57 95 34 28 28 08/31/19 08:00 98.6 94 22 160/92 (114) 100 08/31/19 08:00 Mechanical Ventilator Mechanical Ventilator 08/31/19 08:00 28 08/31/19 07:12 93 29 28 08/31/19 04:00 99.2 93 34 138/75 (96) 100 08/31/19 04:00 28 08/31/19 04:00 92 08/31/19 04:00 Mechanical Ventilator Mechanical Ventilator 08/31/19 03:20 94 26 28 08/31/19 00:00 28 08/31/19 00:00 99.2 114 32 132/89 (103) 98 08/31/19 00:00 Mechanical Ventilator Mechanical Ventilator 08/30/19 23:35 115 08/30/19 23:30 113 30 28 08/30/19 20:00 28 08/30/19 20:00 98.5 129 34 136/82 (100) 99 08/30/19 20:00 Mechanical Ventilator Mechanical Ventilator 08/30/19 20:00 132 08/30/19 19:30 133 37 28 08/30/19 16:00 28 08/30/19 16:00 99 08/30/19 16:00 Mechanical Ventilator Mechanical Ventilator 08/30/19 16:00 98.0 82 25 149/67 (94) 100 08/30/19 15:40 97 32 28 08/30/19 15:40 100 Intake and Output 08/30/19 08/31/19 19:00 07:00 Intake Total 540 ml 530 ml Balance 540 ml 530 ml Free Water 60 ml 50 ml Tube Feeding 480 ml 480 ml # Bowel Movements 2 5 Laboratory Tests 08/30/19 16:39: POC Whole Blood Glucose 136H 08/31/19 04:25: White Blood Count 10.6, Red Blood Count 2.90L, Hemoglobin 7.9L, Hematocrit 26.0L , Mean Corpuscular Volume 90, Mean Corpuscular Hemoglobin 27.1, Mean Corpuscular Hemoglobin Concent 30.2L, Red Cell Distribution Width 18.1H, Platelet Count 427, Mean Platelet Volume 6.0L, Neutrophils (%) (Auto) , Lymphocytes (%) (Auto) , Monocytes (%) (Auto) , Eosinophils (%) (Auto) , Basophils (%) (Auto) , Sodium Level 138, Potassium Level 4.4, Chloride Level 100 , Carbon Dioxide Level 25, Anion Gap 13, Blood Urea Nitrogen 26H, Creatinine 5.0H, Estimat Glomerular Filtration Rate 11.6, Glucose Level 109H, Calcium Level 9.8, Phosphorus Level 2.8, Magnesium Level 2.0, Total Bilirubin 0.2, Aspartate Amino Transf (AST/SGOT) 23, Alanine Aminotransferase (ALT/SGPT) 18, Alkaline Phosphatase 92, Total Protein 7.9, Albumin 2.8L, Globulin 5.1, Albumin/ Globulin Ratio 0.5L Height (Feet): 6 Height (Inches): 1.00 Weight (Pounds): 172 General Appearance: no apparent distress EENT: other - Trach to vent Cardiovascular: normal rate Respiratory/Chest: decreased breath sounds Abdomen: other - PEG in place Objective No change Mic Cole MD Aug 31, 2019 14:30
[2019-08-31 16:00] VITALS: BP 121/54
[2019-08-31 20:00] VITALS: BP 121/71
[2019-08-31] MEDS: Dyna-Hex 2% Top Sol 2oz TOPIC SCH (20:03)
--- NOTE | 2019-08-31 21:10 | General Progress Note ---
Assessment/Plan Problem List: (1) HTN (hypertension) ICD Codes: I10 - Essential (primary) hypertension SNOMED: 01298563 (2) CASSANDRA (acute kidney injury) ICD Codes: N17.9 - Acute kidney failure, unspecified SNOMED: 0048937, 59516828 (3) Anemia in chronic kidney disease (CKD) ICD Codes: N18.9 - Chronic kidney disease, unspecified; D63.1 - Anemia in chronic kidney disease SNOMED: 097460175 (4) Renal failure ICD Codes: N19 - Unspecified kidney failure SNOMED: 50873056 (5) Respiratory failure requiring intubation ICD Codes: J96.90 - Respiratory failure, unspecified, unspecified whether with hypoxia or hypercapnia; A41.89 - Other specified sepsis SNOMED: 152353468, 280649199 (6) Pneumonia due to COVID-19 virus ICD Codes: U07.1 - COVID-19; J12.89 - Other viral pneumonia SNOMED: 921897134, 489581584 (7) Sepsis due to severe acute respiratory syndrome coronavirus 2 (SARS-CoV-2) ICD Codes: U07.1 - COVID-19; A41.89 - Other specified sepsis SNOMED: 410533982, 569566046 Status: progressing, unchanged Assessment/Plan: trach and peg afebrile reviewed chart and labs repeat blood cx and covid are both negative n Subjective ROS Limited/Unobtainable: Yes Allergies: Coded Allergies: No Known Allergies (Unverified , 05/28/19) Objective Last 24 Hour Vital Signs Date Time Temp Pulse Resp B/P (MAP) Pulse Ox O2 Delivery O2 Flow Rate FiO2 08/31/19 20:00 28 08/31/19 20:00 96 08/31/19 20:00 Mechanical Ventilator Mechanical Ventilator 08/31/19 20:00 98.2 99 26 121/71 (88) 100 08/31/19 19:30 98 26 28 08/31/19 17:26 100 29 28 08/31/19 16:52 104 08/31/19 16:00 28 08/31/19 16:00 97.7 103 19 121/54 (76) 100 08/31/19 16:00 Mechanical Ventilator Mechanical Ventilator 08/31/19 15:20 87 28 28 28 08/31/19 12:00 Mechanical Ventilator Mechanical Ventilator 08/31/19 12:00 28 08/31/19 12:00 97.0 88 22 128/86 (100) 98 08/31/19 12:00 83 08/31/19 11:02 90 29 28 28 08/31/19 09:22 87 08/31/19 09:10 100 08/31/19 08:57 95 34 28 28 08/31/19 08:00 98.6 94 22 160/92 (114) 100 08/31/19 08:00 Mechanical Ventilator Mechanical Ventilator 08/31/19 08:00 28 08/31/19 07:12 93 29 28 08/31/19 04:00 99.2 93 34 138/75 (96) 100 08/31/19 04:00 28 08/31/19 04:00 92 08/31/19 04:00 Mechanical Ventilator Mechanical Ventilator 08/31/19 03:20 94 26 28 08/31/19 00:00 28 08/31/19 00:00 99.2 114 32 132/89 (103) 98 08/31/19 00:00 Mechanical Ventilator Mechanical Ventilator 08/30/19 23:35 115 08/30/19 23:30 113 30 28 Intake and Output 08/30/19 08/31/19 19:00 07:00 Intake Total 540 ml 530 ml Balance 540 ml 530 ml Free Water 60 ml 50 ml Tube Feeding 480 ml 480 ml # Bowel Movements 2 5 Laboratory Tests 08/31/19 04:25: White Blood Count 10.6, Red Blood Count 2.90L, Hemoglobin 7.9L, Hematocrit 26.0L , Mean Corpuscular Volume 90, Mean Corpuscular Hemoglobin 27.1, Mean Corpuscular Hemoglobin Concent 30.2L, Red Cell Distribution Width 18.1H, Platelet Count 427, Mean Platelet Volume 6.0L, Neutrophils (%) (Auto) , Lymphocytes (%) (Auto) , Monocytes (%) (Auto) , Eosinophils (%) (Auto) , Basophils (%) (Auto) , Sodium Level 138, Potassium Level 4.4, Chloride Level 100 , Carbon Dioxide Level 25, Anion Gap 13, Blood Urea Nitrogen 26H, Creatinine 5.0H, Estimat Glomerular Filtration Rate 11.6, Glucose Level 109H, Calcium Level 9.8, Phosphorus Level 2.8, Magnesium Level 2.0, Total Bilirubin 0.2, Aspartate Amino Transf (AST/SGOT) 23, Alanine Aminotransferase (ALT/SGPT) 18, Alkaline Phosphatase 92, Total Protein 7.9, Albumin 2.8L, Globulin 5.1, Albumin/ Globulin Ratio 0.5L Height (Feet): 6 Height (Inches): 1.00 Weight (Pounds): 172 Karishma Mulligan MD Aug 31, 2019 21:10
--- NOTE | 2019-08-31 23:59 | Pulmonolgy Critical Care Note ---
Critical Care - Asmt/Plan Assessment/Plan: Pulmonary Progress Note HPI: Patient is a 68 year old man, [facility] resident, admitted c/o shortness of breath, cough, noted to have Covid 19 Pneumonia, Respiratory Failure Remains on Ventilator, CXR stable, mild interstitial prominence, 08/22 Anemia CKD on HD, will need eventual placement, repeat COVID19 test negative2019 (3 negative) Preserved EF FIO2 28%, P5, adequate O2 sats, remains on ACVC, tolerating CPAP PS 8 day, adequate ABG, s/p Tracheostomy previously, sp PEG, sp new HD line insertion ID following MRSA sputum Sp Trach change 08/20 Reviewed earlier Past Medical History: COPD, CKD, Hypertension, Anemia Allergies: No Known Allergies Physical Exam Vital Signs Noted Stable on ventilator Chronically ill appearing HEENT: Trach CDI Chest: CTAB Hreart: HS1, HS2, RRR Abdomen: SNTND, Gtube Extremities: Wasted, no edema STRAIGHT CUTTER:No focal signs Impression: COVID-19 virus infection - now Covid negative Pneumonia Respiratory failure on ventilator, wean as tolerated CKD - on HD Previous NSTEMI Hypotension resolved Cardiomegaly Fungemia MRSA sputum COPD Chronic Kidney Disease - HD H/o Hypertension Anemia Plan: trach care as is Antibiotics per ID HD per renal monitor vitals AC - wean as tolerated, PS 8 AM PT eval, up in chair as tolerated anxiolytics if needed 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 PRN Monitor lab data nutrition feeds Hemodialysis per Renal impression, plan, and exam edited and reviewed in detail care discussed with RN Laboratory Tests Noted: CXR: No acute changes Subjective ROS Limited/Unobtainable: Yes Allergies: Coded Allergies: No Known Allergies (Unverified , 05/28/19) Critical Care - Objective Last 24 Hour Vital Signs Date Time Temp Pulse Resp B/P (MAP) Pulse Ox O2 Delivery O2 Flow Rate FiO2 08/31/19 23:30 105 26 28 08/31/19 20:00 28 08/31/19 20:00 96 08/31/19 20:00 Mechanical Ventilator Mechanical Ventilator 08/31/19 20:00 98.2 99 26 121/71 (88) 100 08/31/19 19:30 98 26 28 08/31/19 17:26 100 29 28 08/31/19 16:52 104 08/31/19 16:00 28 08/31/19 16:00 97.7 103 19 121/54 (76) 100 08/31/19 16:00 Mechanical Ventilator Mechanical Ventilator 08/31/19 15:20 87 28 28 28 08/31/19 12:00 Mechanical Ventilator Mechanical Ventilator 08/31/19 12:00 28 08/31/19 12:00 97.0 88 22 128/86 (100) 98 08/31/19 12:00 83 08/31/19 11:02 90 29 28 28 08/31/19 09:22 87 08/31/19 09:10 100 08/31/19 08:57 95 34 28 28 08/31/19 08:00 98.6 94 22 160/92 (114) 100 08/31/19 08:00 Mechanical Ventilator Mechanical Ventilator 08/31/19 08:00 28 08/31/19 07:12 93 29 28 08/31/19 04:00 99.2 93 34 138/75 (96) 100 08/31/19 04:00 28 08/31/19 04:00 92 08/31/19 04:00 Mechanical Ventilator Mechanical Ventilator 08/31/19 03:20 94 26 28 08/31/19 00:00 28 08/31/19 00:00 99.2 114 32 132/89 (103) 98 08/31/19 00:00 Mechanical Ventilator Mechanical Ventilator Accucheck: 168 Critical Care - Subjective ROS Limited/Unobtainable: No Condition: stable FI02: 28 Vent Support Breath Rate: 26 Vent Support Mode: AC Vent Tidal Volume: 500 Sputum Amount: Moderate PEEP: 5.0 PIP: 22 Tube Feeding Amount: 40 I&O: Intake and Output 08/30/19 08/31/19 19:00 07:00 Intake Total 540 ml 530 ml Balance 540 ml 530 ml Free Water 60 ml 50 ml Tube Feeding 480 ml 480 ml # Bowel Movements 2 5 ET-Tube: 7.5 ET Position: 24 Arturo Mckeon MD Aug 31, 2019 23:59
[2019-09-01] VITALS: BP 131/61
[2019-09-01] MEDS: NovoLOG Insulin Flexpen SUBQ SCH ×3 (00:05→11:26)
[2019-09-01 04:00] VITALS: BP 124/69
[2019-09-01 05:41] LABS: BASOPHILS % (AUTO) 0.9 % (0.0-2.0); HEMATOCRIT 28.4 % (42.0-52.0); HEMOGLOBIN 8.6 G/DL (14.2-18.0); LYMPHOCYTES % (AUTO) 25.3 % (20.0-45.0); MEAN CORPUSCULAR VOLUME 89 FL (80-99); MONOCYTES % (AUTO) 9.3 % (1.0-10.0); NEUTROPHILS % (AUTO) 59.5 % (45.0-75.0); PLATELET COUNT 451 K/UL (150-450); RED BLOOD COUNT 3.19 M/UL (4.70-6.10); RED CELL DISTRIBUTION WIDTH 18.1 % (11.6-14.8); WHITE BLOOD COUNT 10.2 K/UL (4.8-10.8)
[2019-09-01 06:12] LABS: ALANINE AMINOTRANSFERASE 20 U/L (12-78); ALBUMIN 2.4 G/DL (3.4-5.0); ALBUMIN/GLOBULIN RATIO 0.4 (1.0-2.7); ALKALINE PHOSPHATASE 113 U/L (46-116); ANION GAP 10 mmol/L (5-15); ASPARTATE AMINO TRANSFERASE 23 U/L (15-37); BILIRUBIN,TOTAL 0.3 MG/DL (0.2-1.0); BLOOD UREA NITROGEN 19 mg/dL (7-18); CALCIUM 9.5 MG/DL (8.5-10.1); CARBON DIOXIDE 31 MMOL/L (21-32); CHLORIDE 100 MMOL/L (98-107); CREATININE 4.2 MG/DL (0.55-1.30); PHOSPHORUS 2.1 MG/DL (2.5-4.9); POTASSIUM 3.8 MMOL/L (3.5-5.1); SODIUM 141 MMOL/L (136-145)
[2019-09-01 08:00] VITALS: BP_SYST 109; BP_SYST 137; BP_DIAS 75; BP_DIAS 80
[2019-09-01] MEDS: Fluconazole 100mg tab NG SCH (08:18)
[2019-09-01] MEDS: Midodrine 10mg tab NG SCH ×2 (08:18→13:00)
[2019-09-01] MEDS: Lomotil 2.5mg tab NG SCH (08:18)
[2019-09-01] MEDS: Enoxaparin 30mg Inj SUBQ SCH (08:19)
--- NOTE | 2019-09-01 10:36 | General Progress Note ---
Assessment/Plan Status: progressing, unchanged Assessment/Plan: 1. Diabetes. 2. Hypertension. 3. Coronary artery disease. 4. COPD. 5. Psychiatric disorder with schizophrenia. 6. History of hepatitis C. 7. HLP. 8. Chronic kidney disease, now with acute renal failure. 9. Anemia. 10. Hypothyroidism. 11. Spinal stenosis. 12. Constipation. 13. GERD. 14. COVID positive HD per nephrology fu labs s/p PEG GTF TF at 40 cc imodium lomotil neg C.diff off reglan monitor for residuals Subjective ROS Limited/Unobtainable: No Allergies: Coded Allergies: No Known Allergies (Unverified , 05/28/19) Objective Last 24 Hour Vital Signs Date Time Temp Pulse Resp B/P (MAP) Pulse Ox O2 Delivery O2 Flow Rate FiO2 09/01/19 08:20 88 22 28 28 09/01/19 08:20 100 09/01/19 08:00 95 09/01/19 08:00 28 09/01/19 08:00 Mechanical Ventilator Mechanical Ventilator 09/01/19 08:00 97.9 99 28 137/80 (99) 99 09/01/19 07:22 87 25 28 09/01/19 04:00 Mechanical Ventilator Mechanical Ventilator 09/01/19 04:00 28 09/01/19 04:00 98.6 79 24 124/69 (87) 100 09/01/19 04:00 114 09/01/19 03:17 100 26 28 09/01/19 00:00 100 09/01/19 00:00 98.8 99 26 131/61 (84) 100 09/01/19 00:00 Mechanical Ventilator Mechanical Ventilator 09/01/19 00:00 28 08/31/19 23:30 105 26 28 08/31/19 20:00 28 08/31/19 20:00 96 08/31/19 20:00 Mechanical Ventilator Mechanical Ventilator 08/31/19 20:00 98.2 99 26 121/71 (88) 100 08/31/19 19:30 98 26 28 08/31/19 17:26 100 29 28 08/31/19 16:52 104 08/31/19 16:00 28 08/31/19 16:00 97.7 103 19 121/54 (76) 100 08/31/19 16:00 Mechanical Ventilator Mechanical Ventilator 08/31/19 15:20 87 28 28 28 08/31/19 12:00 Mechanical Ventilator Mechanical Ventilator 08/31/19 12:00 28 08/31/19 12:00 97.0 88 22 128/86 (100) 98 08/31/19 12:00 83 08/31/19 11:02 90 29 28 28 Intake and Output 08/31/19 09/01/19 19:00 07:00 Intake Total 40 ml 420 ml Output Total 1000 ml Balance -960 ml 420 ml Free Water 60 ml Tube Feeding 40 ml 360 ml Hemodialysis UF 1000 ml # Bowel Movements 2 2 Laboratory Tests 08/31/19 23:48: POC Whole Blood Glucose 152H 09/01/19 03:50: White Blood Count 10.2, Red Blood Count 3.19L, Hemoglobin 8.6L, Hematocrit 28.4L , Mean Corpuscular Volume 89, Mean Corpuscular Hemoglobin 26.9L, Mean Corpuscular Hemoglobin Concent 30.2L, Red Cell Distribution Width 18.1H, Platelet Count 451H, Mean Platelet Volume 5.9L, Neutrophils (%) (Auto) 59.5, Lymphocytes (%) (Auto) 25.3, Monocytes (%) (Auto) 9.3, Eosinophils (%) (Auto) 5.0H, Basophils (%) (Auto) 0.9, Sodium Level 141, Potassium Level 3.8, Chloride Level 100, Carbon Dioxide Level 31, Anion Gap 10, Blood Urea Nitrogen 19H, Creatinine 4.2H, Estimat Glomerular Filtration Rate 14.2, Glucose Level 162H, Calcium Level 9.5, Phosphorus Level 2.1L, Total Bilirubin 0.3, Aspartate Amino Transf (AST/SGOT) 23, Alanine Aminotransferase (ALT/SGPT) 20, Alkaline Phosphatase 113, Total Protein 8.0, Albumin 2.4L, Globulin 5.6, Albumin/ Globulin Ratio 0.4L 09/01/19 05:15: POC Whole Blood Glucose 163H Height (Feet): 6 Height (Inches): 1.00 Weight (Pounds): 158 General Appearance: alert EENT: normal ENT inspection Neck: supple Cardiovascular: normal rate Respiratory/Chest: decreased breath sounds Abdomen: normal bowel sounds, non tender, soft Extremities: non-tender Marito Ramires MD Sep 01, 2019 10:36
--- NOTE | 2019-09-01 11:35 | Hematology/Onc Progress Note ---
Assessment/Plan Assessment/Plan Assessment and Recs: # Anemia of chronic disease, likely related ot underlying kidney disease has COIVD19++++++ --> hgb trend 9-->8-->7.3-->7.9-->6.8->9.5-->10->8.3-->7.7-->7.1-->8.9->8.8->7.7 -->8.1 ->7.9-->7.7 -->8.2-->8.1 -->7.9-->8.5 -->9->9.2-->9.5-->10.7 -->9.8--> 10.2-->11.8 -->11.9-->8.8 ->9.4->9-->8.3 -->8.5-->9.4->9.8-->9-->8.3-->11.6--> 10.8-->10.5-->10->9.7->9.9->8.7->8.4->8-->8.5-->8-->8.3->7.9-->8.6 --> transfuse as needed, hgb goal >7 --> no evidence of hemolysis --> peripheral smear has been reviewed --> epogen started 3 x a week ==>> transfuse 06/08, 06/15 # Leukocytosis likely related to suspected COVID-19 virus infection --> completed plaquenil --> trend smear as needed --> wbc trend: 4-->11-->14.5-->21-->26-->21->24--.28-->23-->19-->16.2-->21--> 11.2 -->12.5-->12.3-->12.4-->18.5-->18.5-->17->13-->18.2-->22.2-->25-->17.4-->17 -->14.2-->14-->16-->15.5-->9->17->11.5-->12->12-->18->15->9.8-->4.3-->5-->10.2 --> pulm is aware --> on abx cefepime/vanc->zosyn/vanc-->dom/vanc-->dom-->levaquin/cefepime--> vanc/zosyn --> vanc --> pressors as needed --> 06/27 covid 19++ --> pressors as needed in icu --> c diff negative 08/08 --> blood cx++ # Thrombocytopenia/Lymphopenia --> likely related to covid19 --> plt 129k-->186k-->251-->285-->384 -->430-->539-->515-->447-->451-->404-->544 -->244 -->393 --> hep panel pending --> hiv negative # Respiratory failure with covid19+ --> s/p vent/trach --> weaning prn # Possible Pneumonia --> abx completed --> 07/13 cxr: Improved right lung infiltrates. # Cardiomegaly # Transaminitis with Elevated AST # COPD # Chronic Kidney Disease --> per renal hd --> s/p right femoral cath 07/02 # Hypertension # peg # Dvt ppx lovenox Appreciate consultation and dw Rn Subjective Constitutional: Denies: no symptoms, chills, fever, malaise, weakness, other HEENT: Denies: no symptoms, eye pain, blurred vision, tearing, double vision, ear pain, ear discharge, nose pain, nose congestion, throat pain, throat swelling, mouth pain, mouth swelling, other Cardiovascular: Denies: no symptoms, chest pain, edema, irregular heart rate, lightheadedness, palpitations, syncope, other Gastrointestinal/Abdominal: Denies: no symptoms, abdomen distended, abdominal pain, black stools, tarry stools, blood in stool, constipated, diarrhea, difficulty swallowing, nausea, poor appetite, poor fluid intake, rectal bleeding , vomiting, other Genitourinary: Denies: no symptoms, burning, discharge, frequency, flank pain, hematuria, incontinence, pain, urgency, other Neurologic/Psychiatric: Denies: no symptoms, anxiety, depressed, emotional problems, headache, numbness, paresthesia, pre-existing deficit, seizure, tingling, tremors, weakness, other Endocrine: Denies: no symptoms, excessive sweating, flushing, intolerance to cold, intolerance to heat, increased hunger, increased thirst, increased urine, unexplained weight gain, unexplained weight loss, other Hematologic/Lymphatic: Denies: no symptoms, anemia, easy bleeding, easy bruising, adenopathy, other Allergies: Coded Allergies: No Known Allergies (Unverified , 05/28/19) Subjective 06/01 nv, extremely agitated, not allowing labs draws, no night sweats, cbc ordered 06/02 confused, restraints, on abx and plaquenil, hgb 7.9, nrb 15 L 06/03 is with nonrebreather, but not compliant, remains confused 06/05 no bleeding, labs noted, no major bleeding, otherwise comfortable 06/06 labs reviewed, no bleeding, meds noted, no night sweats, on levo and nonrebreather 06/07 labs noted, no bleeding, meds reviewed, no bleeding, wbc higher 06/08 to get 2 units prbc, no night sweats, meds reviewed 06/09 is on cefepime and vanc, labs noted, ernesto Rn, no bleeding 06/10 no major changes, labs reviewed, wbc 28k, on abx, cefepime 06/12 remains in icu, labs noted, no night sweats or bleeding 06/13 sluggish pupils, remains agitated, per psych, no bleding, on vent, wbc sitll high 06/14 still confused, remains on vent, with ng, running nepro, on pressors 06/15 icu, febrile, non verbal, hgb 7.1, blood pending, completed plaq 06/16 remains in the icu, nonverbal, plan for hd tomorrow, ernesto rn 06/17 in icu, on pressor, nonverbal, on abx, no bleeding 06/19 no bleeding, nonverbal in icu, hgb is 7.7 06/20 on zosyn, tube feeds, vent, labs noted, in icu, nv 06/21 gettng hd as per renal, in icu, nv, no bleeding, tfs 06/22 icu, cxr with slight improvement, cooling blanket, weaning today 06/23 wewaning, in icu, on vent, abx, and pressors as needed, labs noted 06/24 failed weaning, off abx, completed plaquenil, hgb 8.1 06/26 icu, weaning for this am, afebrile, hgb 8 06/27 in icu, remains comotose, weaning started on peep, no night sweats 06/28 weaning today, off abx, restraints, no distress, h/h stable 06/29 covid 19+, failed weaning, no blood transfusion needed 06/30 icu, on vent, labs reviewed, no distress 07/01 in icu, may need trach, remains on hd per renal, labs noted 07/02 s/p right fem cath, failed wean, no new orders, h/h stable 07/03 is somewhat more responsive, on abx, no bleeding, weaning and HD today 07/04 hd as per renal, weaning off vent, no bleeding today 07/05 obtunded, no bleding overnight, with hd for tomorrow noted, vanc 07/08 no events, remains with trach/vent, ernesto Rn, no bleeding, cbc is noted 07/09 no overnight events, peg for friday pending consent 07/10 off pressors, vent, restraints, labs reviewed 07/11 no acute events is on pressors, intubated, agitated still 07/12 is resting comfortably, no bleeding, emds reviewed and noted 07/13 icu, no events, trach, cxr reviewed, 07/14 is onv ent, tachypneic and tachycardic, labs noted 07/15 remains confused, intubated, ernesto Rn, no bleeding 07/17 icu, cxr improving infiltrates, levo gtt, airborne/contact isolation 07/18 is on broad spectrum abx, is on levaquin and cefepime, wbc 16 agitated 07/19 icu, levo gtt, cxr unchanged, tachy, hd thursday 07/20 sedated, safety restraints, labs reviewed 07/21 hd was done yesterday, lower pressor requirements, wbc is worse, on abx 07/22 icu, meds and labs reviewed, vent, no distress 07/24 on vent, in icu, labs noted, remains agitated, and confused 07/25 remains obtunded, on vent, on pressor, hgb 9, wbc elev 07/26 icu, levo gtt, vent, iv abx, nonverbal 07/27 failed weaning, labs reviewed, repeat covid swab pending 07/28 labs are noted, no bleeding, on vent/trach gtube feeds dw rn 07/29 iuc, restraints, no new changes, vent 07/31 is asleep, comfortable, no events, labs reviewed, restraints+ 08/01 no events, agitated, no bleeding, meds noted, on gtube feeds 08/02 remains on vent, no bleeding, wbc higher 19, hgb 9, on abx 08/03 labs noted, on vent, no bleeding, wbc 17, hgb better 08/04 labs reviewed, no bleeding, does not require prbc, on vent 08/05 more alert, is on trach, vent, no major events, no bleeding, peg+ 08/07 no bleeding no chills, no night sweats, is on vent/trach 08/08 recent covid swab negative, restraints, cxr unchanged 08/09 c diff negative, zosyn, hd today, gtf 08/10 no overnight events, labs reviewed, afebrile 08/11 labs reviewed, meds noted, no fc, no major changes, wbc 12 /3 abx changed to flucon, on abx, wbc 12 7/5 bp on low end, blood cx++, vanc, vent 08/15 no bleeding, no night sweats, on abx, trach/vent 08/16 is able to nod head in response to question, labs noted, on vent/trach 08/17 labs reviewed, hgb 9.8, no bleeding, on abx, meds noted 08/18 labs noted, no bleeding, hgb stable, 9.9, mildly alert 08/19 labs are noted, no bleeding, meds reviewed, line holiday per surg 08/21 labs noted, meds reviewed, no bleeding hgb 8.7 08/22 labs reviewed, no bleeding, meds noted, no night sweats hgb 8.4 08/23 labs ar enoted, no bleeidng, hgb 8, no hemolysis, with rectal tube 08/24 labs reviewed, no bleeding, no night sweats, hgb 8 08/25 no events, hiv negative, hep panel pending, on vanc 08/26 remains confused, is on vent, no bleding, dw rn 08/28 is comfortable, no bleeding, dw rn, no night sweats 08/29 alert is tracking, no bleeding, meds reviewed, s/p peg/trach 08/30 labs are noted, no bleeding, meds reviewed, peg/trach 08/31 meds noted, no bleeding, hgb 8.6, no hemolysis Objective Objective Current Medications Medications (Trade) Dose Ordered Sig/Anthony Route PRN Reason Start Time Stop Time Status Last Admin Dose Admin Acetaminophen (Tylenol) 650 mg Q4H PRN NG For Pain 08/04/19 21:38 09/03/19 21:37 08/30/19 20:31 Acetaminophen (Tylenol) 650 mg Q4H PRN NG Temp >100.5 08/15/19 13:30 09/08/19 08:29 08/23/19 23:24 Chlorhexidine Gluconate (Michelle-Hex 2%) 1 applic DAILY@1999 TOPIC 08/21/19 20:00 11/19/19 19:59 08/31/19 20:03 Dextrose (Dextrose 50%) 25 ml Q30M PRN IV Hypoglycemia 08/04/19 22:00 09/18/19 19:29 Dextrose (Dextrose 50%) 50 ml Q30M PRN IV Hypoglycemia 08/04/19 22:00 09/18/19 19:29 Diphenoxylate HCl/ Atropine (Lomotil) 2.5 mg BID NG 08/24/19 18:00 09/17/19 17:59 09/01/19 08:18 Enoxaparin Sodium (Lovenox) 30 mg DAILY SUBQ 08/05/19 09:00 09/25/19 08:59 09/01/19 08:19 Epoetin Aftab (Epoetin Aftab(ESRD on dialysis)) 10,000 unit FRI-FRI-FRI SUBQ 08/11/19 21:00 11/09/19 20:59 08/30/19 20:30 Fluconazole (Diflucan) 200 mg DAILY NG 08/13/19 10:24 09/21/19 23:59 09/01/19 08:18 Haloperidol Lactate 5 mg/ Dextrose 56 ml @ 224 mls/hr Q6H PRN IVPB Agitation 08/04/19 21:38 09/18/19 21:37 08/19/19 02:26 Hydralazine HCl (Apresoline) 10 mg Q4H PRN IV Blood pressure over 160 systol 08/04/19 21:39 11/02/19 21:38 Insulin Aspart (NovoLOG) EVERY 6 HOURS SUBQ 08/05/19 00:00 09/19/19 00:00 09/01/19 11:26 Loperamide HCl (Imodium) 2 mg Q6H NG 08/18/19 14:00 09/15/19 13:59 09/01/19 08:18 Midodrine (Pro-Amatine) 10 mg THREE TIMES A DAY NG 08/15/19 18:00 11/13/19 17:59 09/01/19 08:18 Potassium Phosphate 250 ml @ 62.5 mls/hr ONCE ONCE IVPB 09/01/19 12:00 09/01/19 15:59 Last 24 Hour Vital Signs Date Time Temp Pulse Resp B/P (MAP) Pulse Ox O2 Delivery O2 Flow Rate FiO2 09/01/19 10:46 84 26 28 28 09/01/19 08:20 88 22 28 28 09/01/19 08:20 100 09/01/19 08:00 95 09/01/19 08:00 28 09/01/19 08:00 Mechanical Ventilator Mechanical Ventilator 09/01/19 08:00 97.9 99 28 137/80 (99) 99 09/01/19 07:22 87 25 28 09/01/19 04:00 Mechanical Ventilator Mechanical Ventilator 09/01/19 04:00 28 09/01/19 04:00 98.6 79 24 124/69 (87) 100 09/01/19 04:00 114 09/01/19 03:17 100 26 28 09/01/19 00:00 100 09/01/19 00:00 98.8 99 26 131/61 (84) 100 09/01/19 00:00 Mechanical Ventilator Mechanical Ventilator 09/01/19 00:00 28 08/31/19 23:30 105 26 28 08/31/19 20:00 28 08/31/19 20:00 96 08/31/19 20:00 Mechanical Ventilator Mechanical Ventilator 08/31/19 20:00 98.2 99 26 121/71 (88) 100 08/31/19 19:30 98 26 28 08/31/19 17:26 100 29 28 08/31/19 16:52 104 08/31/19 16:00 28 08/31/19 16:00 97.7 103 19 121/54 (76) 100 08/31/19 16:00 Mechanical Ventilator Mechanical Ventilator 08/31/19 15:20 87 28 28 28 08/31/19 12:00 Mechanical Ventilator Mechanical Ventilator 08/31/19 12:00 28 08/31/19 12:00 97.0 88 22 128/86 (100) 98 08/31/19 12:00 83 08/31/19 11:02 90 29 28 28 08/31/19 09:22 87 08/31/19 09:10 100 08/31/19 08:57 95 34 28 28 08/31/19 08:00 98.6 94 22 160/92 (114) 100 08/31/19 08:00 Mechanical Ventilator Mechanical Ventilator 08/31/19 08:00 28 08/31/19 07:12 93 29 28 08/31/19 04:00 99.2 93 34 138/75 (96) 100 08/31/19 04:00 28 08/31/19 04:00 92 08/31/19 04:00 Mechanical Ventilator Mechanical Ventilator 08/31/19 03:20 94 26 28 08/31/19 00:00 28 08/31/19 00:00 99.2 114 32 132/89 (103) 98 08/31/19 00:00 Mechanical Ventilator Mechanical Ventilator 08/30/19 23:35 115 08/30/19 23:30 113 30 28 08/30/19 20:00 28 08/30/19 20:00 98.5 129 34 136/82 (100) 99 20 20:00 Mechanical Ventilator Mechanical Ventilator 08/30/19 20:00 132 08/30/19 19:30 133 37 28 08/30/19 16:00 28 08/30/19 16:00 99 08/30/19 16:00 Mechanical Ventilator Mechanical Ventilator 08/30/19 16:00 98.0 82 25 149/67 (94) 100 08/30/19 15:40 97 32 28 08/30/19 15:40 100 08/30/19 12:00 28 08/30/19 12:00 82 08/30/19 12:00 Mechanical Ventilator Mechanical Ventilator 08/30/19 12:00 97.9 84 29 141/77 (98) 100 Intake and Output 08/31/19 09/01/19 19:00 07:00 Intake Total 40 ml 420 ml Output Total 1000 ml Balance -960 ml 420 ml Free Water 60 ml Tube Feeding 40 ml 360 ml Hemodialysis UF 1000 ml # Bowel Movements 2 2 Labs Test 08/29/19 11:50 08/29/19 16:40 08/30/19 00:38 08/30/19 05:39 POC Whole Blood Glucose 127 MG/DL (74-106) 145 MG/DL (74-106) 145 MG/DL (74-106) Test 08/30/19 11:23 08/30/19 16:39 08/31/19 04:25 08/31/19 23:48 POC Whole Blood Glucose 138 MG/DL (74-106) 136 MG/DL (74-106) 152 MG/DL (74-106) White Blood Count 10.6 K/UL (4.8-10.8) Red Blood Count 2.90 M/UL (4.70-6.10) Hemoglobin 7.9 G/DL (14.2-18.0) Hematocrit 26.0 % (42.0-52.0) Mean Corpuscular Volume 90 FL (80-99) Mean Corpuscular Hemoglobin 27.1 PG (27.0-31.0) Mean Corpuscular Hemoglobin Concent 30.2 G/DL (32.0-36.0) Red Cell Distribution Width 18.1 % (11.6-14.8) Platelet Count 427 K/UL (150-450) Mean Platelet Volume 6.0 FL (6.5-10.1) Neutrophils (%) (Auto) % (45.0-75.0) Lymphocytes (%) (Auto) % (20.0-45.0) Monocytes (%) (Auto) % (1.0-10.0) Eosinophils (%) (Auto) % (0.0-3.0) Basophils (%) (Auto) % (0.0-2.0) Sodium Level 138 MMOL/L (136-145) Potassium Level 4.4 MMOL/L (3.5-5.1) Chloride Level 100 MMOL/L (98-107) Carbon Dioxide Level 25 MMOL/L (21-32) Anion Gap 13 mmol/L (5-15) Blood Urea Nitrogen 26 mg/dL (7-18) Creatinine 5.0 MG/DL (0.55-1.30) Estimat Glomerular Filtration Rate 11.6 mL/min (>60) Glucose Level 109 MG/DL (74-106) Calcium Level 9.8 MG/DL (8.5-10.1) Phosphorus Level 2.8 MG/DL (2.5-4.9) Magnesium Level 2.0 MG/DL (1.8-2.4) Total Bilirubin 0.2 MG/DL (0.2-1.0) Aspartate Amino Transf (AST/SGOT) 23 U/L (15-37) Alanine Aminotransferase (ALT/SGPT) 18 U/L (12-78) Alkaline Phosphatase 92 U/L (46-116) Total Protein 7.9 G/DL (6.4-8.2) Albumin 2.8 G/DL (3.4-5.0) Globulin 5.1 g/dL Albumin/Globulin Ratio 0.5 (1.0-2.7) Test 09/01/19 03:50 09/01/19 05:15 09/01/19 11:24 White Blood Count 10.2 K/UL (4.8-10.8) Red Blood Count 3.19 M/UL (4.70-6.10) Hemoglobin 8.6 G/DL (14.2-18.0) Hematocrit 28.4 % (42.0-52.0) Mean Corpuscular Volume 89 FL (80-99) Mean Corpuscular Hemoglobin 26.9 PG (27.0-31.0) Mean Corpuscular Hemoglobin Concent 30.2 G/DL (32.0-36.0) Red Cell Distribution Width 18.1 % (11.6-14.8) Platelet Count 451 K/UL (150-450) Mean Platelet Volume 5.9 FL (6.5-10.1) Neutrophils (%) (Auto) 59.5 % (45.0-75.0) Lymphocytes (%) (Auto) 25.3 % (20.0-45.0) Monocytes (%) (Auto) 9.3 % (1.0-10.0) Eosinophils (%) (Auto) 5.0 % (0.0-3.0) Basophils (%) (Auto) 0.9 % (0.0-2.0) Sodium Level 141 MMOL/L (136-145) Potassium Level 3.8 MMOL/L (3.5-5.1) Chloride Level 100 MMOL/L (98-107) Carbon Dioxide Level 31 MMOL/L (21-32) Anion Gap 10 mmol/L (5-15) Blood Urea Nitrogen 19 mg/dL (7-18) Creatinine 4.2 MG/DL (0.55-1.30) Estimat Glomerular Filtration Rate 14.2 mL/min (>60) Glucose Level 162 MG/DL (74-106) Calcium Level 9.5 MG/DL (8.5-10.1) Phosphorus Level 2.1 MG/DL (2.5-4.9) Total Bilirubin 0.3 MG/DL (0.2-1.0) Aspartate Amino Transf (AST/SGOT) 23 U/L (15-37) Alanine Aminotransferase (ALT/SGPT) 20 U/L (12-78) Alkaline Phosphatase 113 U/L (46-116) Total Protein 8.0 G/DL (6.4-8.2) Albumin 2.4 G/DL (3.4-5.0) Globulin 5.6 g/dL Albumin/Globulin Ratio 0.4 (1.0-2.7) POC Whole Blood Glucose 163 MG/DL (74-106) 155 MG/DL (74-106) Height (Feet): 6 Height (Inches): 1.00 Weight (Pounds): 158 Objective General: nv, confused, sedated Heent: bilateral eye normal inspection, bilateral eye PERRL ++Ng Respiratory: normal breath sounds, no respiratory distress, intubated/vent +++ trach+++ Cardiovascular: regular rate, rhythm, no edema Gastrointestinal: normal inspection, soft, non-distended, peg+ Rectal: deferred Musculoskeletal: normal range of motion, non-tender, R fem cath++ Neurologic: alert, motor strength/tone normal, sensory intact, responsive, speech normal Skin: Decubitus/Ulcer - See RN skin exam. : hinton+ Greg Cabral MD Sep 01, 2019 11:35
[2019-09-01 12:00] VITALS: BP 138/72
[2019-09-01] MEDS ORDERED: Potassium Phosphate 15mm/250ml 250 ML IVPB ONE (12:00)
--- NOTE | 2019-09-01 12:05 | Cardiac Electrophysiology PN ---
Assessment/Plan Assessment/Plan 1. NSTEMI type 2. Low level and flat due to renal failure. On Aspirin. EF 60% . 2. S/P Septic shock. On Abx and Midodrine 10 tid. 3. ESRD, on HD per Dr. Cole. HD today 4. VDRF due to COVID pneumonia. S/P Tracheostomy 07/08/19. 5. Atrial fib with RVR. Off Lopressor for Low BP, in SR 6. Dysphagia, S/P PEG 07/13/19 7. COPD. 8. Anemia. 9. Diarrhea 10. 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 Off isolation as Covid negative Had 1 liter HD yesterday. Transfer to [facility] today Objective Last 24 Hour Vital Signs Date Time Temp Pulse Resp B/P (MAP) Pulse Ox O2 Delivery O2 Flow Rate FiO2 09/01/19 10:46 84 26 28 28 09/01/19 08:20 88 22 28 28 09/01/19 08:20 100 09/01/19 08:00 95 09/01/19 08:00 28 09/01/19 08:00 Mechanical Ventilator Mechanical Ventilator 09/01/19 08:00 97.9 99 28 109/75 (86) 99 09/01/19 07:22 87 25 28 09/01/19 04:00 Mechanical Ventilator Mechanical Ventilator 09/01/19 04:00 28 09/01/19 04:00 98.6 79 24 124/69 (87) 100 09/01/19 04:00 114 09/01/19 03:17 100 26 28 09/01/19 00:00 100 09/01/19 00:00 98.8 99 26 131/61 (84) 100 09/01/19 00:00 Mechanical Ventilator Mechanical Ventilator 09/01/19 00:00 28 08/31/19 23:30 105 26 28 08/31/19 20:00 28 08/31/19 20:00 96 08/31/19 20:00 Mechanical Ventilator Mechanical Ventilator 08/31/19 20:00 98.2 99 26 121/71 (88) 100 08/31/19 19:30 98 26 28 08/31/19 17:26 100 29 28 08/31/19 16:52 104 7/21/20 16:00 28 08/31/19 16:00 97.7 103 19 121/54 (76) 100 08/31/19 16:00 Mechanical Ventilator Mechanical Ventilator 08/31/19 15:20 87 28 28 28 Intake and Output 08/31/19 09/01/19 19:00 07:00 Intake Total 40 ml 420 ml Output Total 1000 ml Balance -960 ml 420 ml Free Water 60 ml Tube Feeding 40 ml 360 ml Hemodialysis UF 1000 ml # Bowel Movements 2 2 Laboratory Tests Test 08/31/19 23:48 09/01/19 03:50 09/01/19 05:15 09/01/19 11:24 POC Whole Blood Glucose 152 MG/DL (74-106) H 163 MG/DL (74-106) H 155 MG/DL (74-106) H White Blood Count 10.2 K/UL (4.8-10.8) Red Blood Count 3.19 M/UL (4.70-6.10) L Hemoglobin 8.6 G/DL (14.2-18.0) L Hematocrit 28.4 % (42.0-52.0) L Mean Corpuscular Volume 89 FL (80-99) Mean Corpuscular Hemoglobin 26.9 PG (27.0-31.0) L Mean Corpuscular Hemoglobin Concent 30.2 G/DL (32.0-36.0) L Red Cell Distribution Width 18.1 % (11.6-14.8) H Platelet Count 451 K/UL (150-450) H Mean Platelet Volume 5.9 FL (6.5-10.1) L Neutrophils (%) (Auto) 59.5 % (45.0-75.0) Lymphocytes (%) (Auto) 25.3 % (20.0-45.0) Monocytes (%) (Auto) 9.3 % (1.0-10.0) Eosinophils (%) (Auto) 5.0 % (0.0-3.0) H Basophils (%) (Auto) 0.9 % (0.0-2.0) Sodium Level 141 MMOL/L (136-145) Potassium Level 3.8 MMOL/L (3.5-5.1) Chloride Level 100 MMOL/L (98-107) Carbon Dioxide Level 31 MMOL/L (21-32) Anion Gap 10 mmol/L (5-15) Blood Urea Nitrogen 19 mg/dL (7-18) H Creatinine 4.2 MG/DL (0.55-1.30) H Estimat Glomerular Filtration Rate 14.2 mL/min (>60) Glucose Level 162 MG/DL (74-106) H Calcium Level 9.5 MG/DL (8.5-10.1) Phosphorus Level 2.1 MG/DL (2.5-4.9) L Total Bilirubin 0.3 MG/DL (0.2-1.0) Aspartate Amino Transf (AST/SGOT) 23 U/L (15-37) Alanine Aminotransferase (ALT/SGPT) 20 U/L (12-78) Alkaline Phosphatase 113 U/L (46-116) Total Protein 8.0 G/DL (6.4-8.2) Albumin 2.4 G/DL (3.4-5.0) L Globulin 5.6 g/dL Albumin/Globulin Ratio 0.4 (1.0-2.7) L Objective HEAD AND NECK: No JVD. Tracheostomy in place. Left SC Kamlesh now in place. LUNGS: Decreased breath sounds. CARDIOVASCULAR: Regular S1 and S2. Tachycardic. ABDOMEN: Soft. PEG in place EXTREMITIES: No pitting edema. Gio Baker MD Sep 01, 2019 12:05
--- NOTE | 2019-09-01 12:07 | Infectious Diseases Prog Note ---
Assessment/Plan Assessment/Plan IMPRESSION: 1. COVID19 pneumonia Positive: 05/27, 05/31 , 06/05, 06/09 ,5, 5, 06/23, 06/27, 07/03, 07/15, 07/29 Negative: 07/26, 08/04, 08/05,08/24 2. MRSA carrier. 3. Chronic kidney disease , end-stage renal disease. 4. COPD. 5. Hypertension. 6. Anemia. 7. Hypothyroidism. 8. Hyperlipidemia. 9. Major depression. 10. Leukocytosis resolved 11. Hypotension 12. Hepatitis C 13. Hyperuricemia 14. Diarrhea, C difficile negative 15. septic shock 16.Sepsis blood cultures 08/08 & 08/12 : Bria albicans blood culture: 08/12 Staph Coagulase negative 17. Pneumonia with Staph aureus ( MRSA) 18. Candidal sepsis 19. Diarrhea, C. difficile negative RECOMMENDATIONS: continue Fluconazole X 20 days Subjective ROS Limited/Unobtainable: Yes Neurologic: Reports: confusion, other - on restraint Allergies: Coded Allergies: No Known Allergies (Unverified , 05/28/19) Objective Last 24 Hour Vital Signs Date Time Temp Pulse Resp B/P (MAP) Pulse Ox O2 Delivery O2 Flow Rate FiO2 09/01/19 10:46 84 26 28 28 09/01/19 08:20 88 22 28 28 09/01/19 08:20 100 09/01/19 08:00 95 09/01/19 08:00 28 09/01/19 08:00 Mechanical Ventilator Mechanical Ventilator 09/01/19 08:00 97.9 99 28 109/75 (86) 99 09/01/19 07:22 87 25 28 09/01/19 04:00 Mechanical Ventilator Mechanical Ventilator 09/01/19 04:00 28 09/01/19 04:00 98.6 79 24 124/69 (87) 100 09/01/19 04:00 114 09/01/19 03:17 100 26 28 09/01/19 00:00 100 09/01/19 00:00 98.8 99 26 131/61 (84) 100 09/01/19 00:00 Mechanical Ventilator Mechanical Ventilator 09/01/19 00:00 28 08/31/19 23:30 105 26 28 08/31/19 20:00 28 08/31/19 20:00 96 08/31/19 20:00 Mechanical Ventilator Mechanical Ventilator 08/31/19 20:00 98.2 99 26 121/71 (88) 100 08/31/19 19:30 98 26 28 08/31/19 17:26 100 29 28 08/31/19 16:52 104 08/31/19 16:00 28 08/31/19 16:00 97.7 103 19 121/54 (76) 100 08/31/19 16:00 Mechanical Ventilator Mechanical Ventilator 08/31/19 15:20 87 28 28 28 Height (Feet): 6 Height (Inches): 1.00 Weight (Pounds): 158 HEENT: status post trach Respiratory/Chest: other - on ventilator Cardiovascular: normal rate, other - HD line Abdomen: soft, non tender, other - GT feeding Extremities: no edema Neurologic/Psychiatric: other - sleeping Laboratory Tests Test 08/31/19 23:48 09/01/19 03:50 09/01/19 05:15 09/01/19 11:24 POC Whole Blood Glucose 152 MG/DL (74-106) H 163 MG/DL (74-106) H 155 MG/DL (74-106) H White Blood Count 10.2 K/UL (4.8-10.8) Red Blood Count 3.19 M/UL (4.70-6.10) L Hemoglobin 8.6 G/DL (14.2-18.0) L Hematocrit 28.4 % (42.0-52.0) L Mean Corpuscular Volume 89 FL (80-99) Mean Corpuscular Hemoglobin 26.9 PG (27.0-31.0) L Mean Corpuscular Hemoglobin Concent 30.2 G/DL (32.0-36.0) L Red Cell Distribution Width 18.1 % (11.6-14.8) H Platelet Count 451 K/UL (150-450) H Mean Platelet Volume 5.9 FL (6.5-10.1) L Neutrophils (%) (Auto) 59.5 % (45.0-75.0) Lymphocytes (%) (Auto) 25.3 % (20.0-45.0) Monocytes (%) (Auto) 9.3 % (1.0-10.0) Eosinophils (%) (Auto) 5.0 % (0.0-3.0) H Basophils (%) (Auto) 0.9 % (0.0-2.0) Sodium Level 141 MMOL/L (136-145) Potassium Level 3.8 MMOL/L (3.5-5.1) Chloride Level 100 MMOL/L (98-107) Carbon Dioxide Level 31 MMOL/L (21-32) Anion Gap 10 mmol/L (5-15) Blood Urea Nitrogen 19 mg/dL (7-18) H Creatinine 4.2 MG/DL (0.55-1.30) H Estimat Glomerular Filtration Rate 14.2 mL/min (>60) Glucose Level 162 MG/DL (74-106) H Calcium Level 9.5 MG/DL (8.5-10.1) Phosphorus Level 2.1 MG/DL (2.5-4.9) L Total Bilirubin 0.3 MG/DL (0.2-1.0) Aspartate Amino Transf (AST/SGOT) 23 U/L (15-37) Alanine Aminotransferase (ALT/SGPT) 20 U/L (12-78) Alkaline Phosphatase 113 U/L (46-116) Total Protein 8.0 G/DL (6.4-8.2) Albumin 2.4 G/DL (3.4-5.0) L Globulin 5.6 g/dL Albumin/Globulin Ratio 0.4 (1.0-2.7) L Current Medications Medications (Trade) Dose Ordered Sig/Anthony Route PRN Reason Start Time Stop Time Status Last Admin Dose Admin Acetaminophen (Tylenol) 650 mg Q4H PRN NG For Pain 08/04/19 21:38 09/03/19 21:37 08/30/19 20:31 Acetaminophen (Tylenol) 650 mg Q4H PRN NG Temp >100.5 08/15/19 13:30 09/08/19 08:29 08/23/19 23:24 Chlorhexidine Gluconate (Michelle-Hex 2%) 1 applic DAILY@1999 TOPIC 08/21/19 20:00 11/19/19 19:59 08/31/19 20:03 Dextrose (Dextrose 50%) 25 ml Q30M PRN IV Hypoglycemia 08/04/19 22:00 09/18/19 19:29 Dextrose (Dextrose 50%) 50 ml Q30M PRN IV Hypoglycemia 08/04/19 22:00 09/18/19 19:29 Diphenoxylate HCl/ Atropine (Lomotil) 2.5 mg BID NG 08/24/19 18:00 09/17/19 17:59 09/01/19 08:18 Enoxaparin Sodium (Lovenox) 30 mg DAILY SUBQ 08/05/19 09:00 09/25/19 08:59 09/01/19 08:19 Epoetin Aftab (Epoetin Aftab(ESRD on dialysis)) 10,000 unit SUBQ 08/11/19 21:00 11/09/19 20:59 08/30/19 20:30 Fluconazole (Diflucan) 200 mg DAILY NG 08/13/19 10:24 09/21/19 23:59 09/01/19 08:18 Haloperidol Lactate 5 mg/ Dextrose 56 ml @ 224 mls/hr Q6H PRN IVPB Agitation 08/04/19 21:38 09/18/19 21:37 08/19/19 02:26 Hydralazine HCl (Apresoline) 10 mg Q4H PRN IV Blood pressure over 160 systol 08/04/19 21:39 11/02/19 21:38 Insulin Aspart (NovoLOG) EVERY 6 HOURS SUBQ 08/05/19 00:00 09/19/19 00:00 09/01/19 11:26 Loperamide HCl (Imodium) 2 mg Q6H NG 08/18/19 14:00 09/15/19 13:59 09/01/19 08:18 Midodrine (Pro-Amatine) 10 mg THREE TIMES A DAY NG 08/15/19 18:00 11/13/19 17:59 09/01/19 08:18 Potassium Phosphate 250 ml @ 62.5 mls/hr ONCE ONCE IVPB 09/01/19 12:00 09/01/19 15:59 09/01/19 11:41 Ted Leyva MD Sep 01, 2019 12:07
--- NOTE | 2019-09-01 13:39 | Nephrology Progress Note ---
Assessment/Plan Problem List: (1) CASSANDRA (acute kidney injury) (2) Anemia in chronic kidney disease (CKD) (3) HTN (hypertension) (4) COVID-19 Assessment Acute renal failure most likely superimposed on chronic kidney disease Suspected COVID-19 virus infection Possible Pneumonia, lymphopenia, elevated AST Cardiomegaly, possible CHF COPD Hypertension Anemia, most likely related to chronic kidney disease Plan August 31: Dialyzed yesterday. Renal parameters stable. Next dialysis possible September 02. August 30: Due for dialysis today. Stable from renal standpoint of view. August 29: Next dialysis tomorrow August 30. No labs done today. Continue her consultants. August 28: Dialyzed yesterday August 27. Today's labs reviewed. Potassium supplement given. Aim to dialyse on August 30 next. August 27: Dialysis today. Blood pressure stable. No labs drawn today. Continue per consultants. August 26: Dialysis tomorrow August 27. Blood pressure is stable. Aim to ultrafiltrate 1 L. Labs reviewed. Continue per consultants. August 25: Dialyzed yesterday. No UF. Blood pressure is stable. Potassium supplement given. Next hemodialysis planned for August 27. Will order sooner if needed. August 24: No chemistry panel today. Due for dialysis today. Blood pressure stable. August 23: Labs reviewed. Potassium supplement given. Blood pressure is stable. Due for dialysis tomorrow. No ultrafiltration will be done. August 22: Patient was dialyzed yesterday. Pressure low today. 500 cc albumin ordered. Continue to monitor renal parameters. Continue to be on Midodrin. August 21: A temporary catheter for dialysis was put in yesterday, and the patient is due for dialysis today. Continue per consultants. August 20: Patient due for insertion of a temporary dialysis catheter. I ordered dialysis for tomorrow August 21. Continue per consultants. Discussed with RN"Janice " August 19: Permacath discontinued. Due for temporary non-tunneled dialysis access. White blood cells are up to over 14,000. Will dialyze as needed. August 18: Discussed with ID and general surgery. Will remove the permacath which is thought to be infected by IR today. Will monitor renal parameters. Will obtain surveillance cultures tomorrow. Will attempt to put a temporary dialysis access in 48 to 72 hours for dialysis purposes. August 17: Last dialysis August 15, no blood work done today yet. Will reassess if dialysis should be continued. Continue per current management. We will make arrangement to DC permacath and reinsert a new one via general surgery and or interventional radiology August 16: Albumin for low BP. Continue to monitor renal parameters. August 15: Due for dialysis today. Remains borderline low. No ultrafiltration during dialysis. Discussed with SHANIQUE Macdonald. August 14: No labs done today. Patient hypotensive. Normal saline and albumin bolus given. Midodrin started. Will check lab tomorrow. August 13: Lab reviewed. Last dialysis yesterday. Next dialysis August 15. Potassium and phosphorus supplement given. Continue per consultants. August 12: No can panel done today. Due for dialysis today. Continue per consultants. August 11: Patient labs reviewed. Will order dialysis tomorrow. Continue per consultants. August 10: Patient was dialyzed yesterday. Today's labs checked. Stable from renal standpoint to view August 09: Patient scheduled for hemodialysis today. Will check labs tomorrow. August 08: Lab reviewed. Hemodialysis scheduled for tomorrow. August 07: Dialyzed yesterday. No labs drawn today. Will check labs tomorrow. Continue per consultants. August 06: Patient on dialysis now. Discussed with dialysis nurse. Slight catheter malfunction persist. August 05: Labs reviewed. Dialysis scheduled for tomorrow. Continue per consultants. August 04: No labs done today. Dialyzed yesterday. Check labs tomorrow. Continue per consultants. August 03: Lab reviewed. Due for dialysis today. White blood cell 17,500. August 02: Lab reviewed. Low phosphorus replaced. Hemodialysis ordered for tomorrow. White blood cells over 18,000. August 01: Labs reviewed. Potassium replacement ordered. Remains full code on ventilator via trach. Continue per consultants. July 31: Dialyzed yesterday. No can panel today. Remains full code. Remains on ventilator. Being fed through PEG. Continue per consultants. July 30: Patient due for dialysis today. Labs are reviewed. Remains full code. Status post trach to ventilator. Status post PEG. July 29: Patient dialyzed yesterday. Due for dialysis tomorrow. Remains in ICU. Full code. Status post trach tube to ventilator. Status post PEG. July 28: Due for dialysis today. Labs reviewed. Full code. Patient trached and vented. July 27: Last COVID test negative. COVID test will be repeated tomorrow. Will order dialysis tomorrow. Remains full code. Medication list and labs reviewed. July 26: No labs done today. Dialysis done yesterday. Will check lab tomorrow. Dialysis as needed. July 25: Lab reviewed. Dialysis today. Discussed with RN. July 24: Lab reviewed. Do dialysis tomorrow. Discussed with RN. July 23: Lab reviewed. Dialyzed yesterday. Discussed with RN. Remains full code. Next dialysis July 25. Will check labs tomorrow. July 22: Labs reviewed. Due for dialysis today. Discussed with RN. Watch borderline low blood pressure. Discussed with dialysis nurse. July 21: Today's lab reviewed. Will arrange for dialysis tomorrow. Discussed with RN. Aim to keep the blood pressure above 100 systolic. Continue per consultants. July 20: Patient was dialyzed yesterday. Could not ultrafiltrate much due to low blood pressure. Discussed with SHANIQUE Dick today. No labs drawn today. Continue per consultants. July 19: Due for dialysis today. Discussed with SHANIQUE Dick. Continue per consultants. July 18: Dialyzed July 16. Will order dialysis tomorrow July 19. Continues to be on ventilator through trach. No labs done today. Continue per consultants. July 17: Dialyzed yesterday. Stable from renal standpoint of view. Remains full code. Status post trach on vent. Status post PEG. Continue per consultants. July 16: Dialysis today. Will resume Midodrin to prevent hypotension. Patient remains full code. July 15: Dialyzed yesterday, due for dialysis tomorrow. Labs and medication list reviewed. Continue per consultants. Patient remains full code. COVID-19 detected again. July 14: Patient currently on dialysis. This is continuation of dialysis from yesterday as yesterday's dialysis was cut short due to catheter malfunction. Labs and medication reviewed. Continue per consultants. July 13: Patient currently on hemodialysis. The dialysis catheter which is a intrajugular Kamlesh has poor flow. Will try TPA. Continue per consultants. July 12: Due for PEG today. Due for dialysis tomorrow. Continue per consultants. Discussed with RN. July 11: Plan for dialysis today. Discussed with RN. Data reviewed. July 10: Plan for dialysis tomorrow July 11. Waiting for consent to proceed with PEG. Continue per consultants. Medication reviewed. Labs reviewed. Discussed with RN. July 09: Dialyzed yesterday. Labs reviewed. Medication reviewed. Next hemodialysis July 11. July 08: Patient has tracheostomy now. Connected to ventilator. Due for dialysis today. Continue per consultants. Discussed with SHANIQUE Romero. July 07: Patient is due for tracheostomy today. Patient was last dialyzed July 05. Will order dialysis for tomorrow. July 06: Patient is intubated on ventilator however the plan is to extubate today. Patient was dialysis yesterday July 05. The dialysis time was cut short due to patient's respiratory distress. Only 1 L was removed during dialysis yesterday. Today's lab reviewed. Continue per consultants. Will arrange for dialysis as needed. July 05: Patient due for dialysis today. Remains intubated. Will schedule permacath placement in a.m. blood cultures on July 04 are negative. July 04: Patient was dialyzed yesterday. Due for dialysis tomorrow. Continues to be intubated. After tomorrow's dialysis will order a permacath. July 03: Dialysis is about to be started now Continues to be intubated Will plan to remove the femoral dialysis catheter and exchanged for a new temporary catheter per ID recommendation We will check surveillance blood culture tomorrow July 02: Patient was dialyzed yesterday and due for dialysis tomorrow Stable from renal standpoint W on dialysis Continue per consultants, weaning....... etc. July 01: Dialysis today Other status unchanged June 30: Due for dialysis tomorrow Remains intubated on ventilator Labs and medication reviewed Discussed with RN Stable from renal standpoint of view June 29: Dialyzed yesterday Due for dialysis tomorrow Stable from renal standpoint to view Keeps failing weaning process June 28: Patient due for dialysis today Stable from renal standpoint to view Continue per consultants June 27: Labs reviewed Due due for dialysis June 28 Discussed with SHANIQUE Dick Continue per consultants Remains intubated on ventilator June 26 Labs reviewed Dialyzed yesterday Started on weaning today Continue to monitor renal parameters June 25: On dialysis now Potassium supplement implemented Continue per consultants Next dialysis June 27June 15: Status unchanged Dialyzed yesterday will dialyze again tomorrow Potassium supplements given Discussed with RN June 14: Due dialysis today Status: Remains intubated on ventilator June 22: Status unchanged Dialyzed yesterday and duefordialysistomorrow Serum sodium stable today June 21 Remains intubated on ventilator Due dialysis today Emphasized high sodium bath for dialysis June 20: Remains intubated on ventilator Dialyzed June 19 next dialysis June 21 Serum sodium 128, will give 250 cc 3% saline Remains full code Discussed with RN Iron panel ordered June 19: Discussed with RN. Patient due for dialysis today. Continue pulmonary support. Remains full code. June 18: Patient dialyzed yesterday June 17 Serum sodium improved but still low Arrange for dialysis tomorrow June 19 Continue per consultants June 17: Due for dialysis today Today's lab reviewed, low serum sodium noted, Emphasized on high sodium bath to dialysis nurse Discussed with SHANIQUE Yuen June 16: Dialyzed yesterday Remains intubated Labs reviewed, serum sodium 131 Plan to dialyze tomorrow June 17 with high sodium bath Discussed with SHANIQUE Yuen June 15: Due for dialysis today Labs reviewed Discussed with RN Transfuse 1 unit of packed RBCs today for low hemoglobin of 7.1 June 5: Blood pressure well maintained Receive dialysis June 13 next hemodialysis June 15June 4: Discussed with RN in ICU Patient did not receive proper dialysis yesterday due to dialysis catheter malfunction Catheter to be adjusted today and dialyzed to be resumed today Continue per consultants Positive for COVID 28 June 2: Patient now intubated on mechanical ventilation Discussed with SHANIQUE Yuen, today June 12 Patient received dialysis yesterday June 10 next hemodialysis June 12 Blood pressure better maintained Today's labs reviewed Continue per consultants Previously patient received dialysis last evening June 05, next dialysis June 07 which was incomplete due to patient's hypotension Will start on midodrine for blood pressure support. Meanwhile continue other pressors as needed Previously Patient is doing poorly, septic, white blood cells are rising, Hypotension somewhat improved We will keep n.p.o. , NG tube for medications, and change medication to IV as needed Patient remains full code Monitor vancomycin level Previously: Patient pulled out his femoral catheter yesterday June 03 which was reinserted by Dr. Mast Patient scheduled for dialysis again June 04, which again was not done due to dialysis nurse citing catheter malfunction Meanwhile continue management per ID, pulmonary , and psych. Meanwhile white blood cell count is rising. Patient blood pressure borderline low. Will check ABG Previously May 31 : I believe patient need dialysis treatment He however needs to competency assessment if can make decisions or not I will communicate with Dr. Hadadz Previously: Per pulmonary and ID advice Adjust blood pressure medication Renal diet Anemia work-up 2D echocardiogram refused Kidney ultrasound refused Jules catheter Urine studies Per orders Subjective ROS Limited/Unobtainable: Yes Objective Objective Last 24 Hour Vital Signs Date Time Temp Pulse Resp B/P (MAP) Pulse Ox O2 Delivery O2 Flow Rate FiO2 09/01/19 10:46 84 26 28 28 09/01/19 08:20 88 22 28 28 09/01/19 08:20 100 09/01/19 08:00 95 09/01/19 08:00 28 09/01/19 08:00 Mechanical Ventilator Mechanical Ventilator 09/01/19 08:00 97.9 99 28 109/75 (86) 99 09/01/19 07:22 87 25 28 09/01/19 04:00 Mechanical Ventilator Mechanical Ventilator 09/01/19 04:00 28 09/01/19 04:00 98.6 79 24 124/69 (87) 100 09/01/19 04:00 114 09/01/19 03:17 100 26 28 09/01/19 00:00 100 09/01/19 00:00 98.8 99 26 131/61 (84) 100 09/01/19 00:00 Mechanical Ventilator Mechanical Ventilator 09/01/19 00:00 28 08/31/19 23:30 105 26 28 08/31/19 20:00 28 08/31/19 20:00 96 08/31/19 20:00 Mechanical Ventilator Mechanical Ventilator 08/31/19 20:00 98.2 99 26 121/71 (88) 100 08/31/19 19:30 98 26 28 08/31/19 17:26 100 29 28 08/31/19 16:52 104 08/31/19 16:00 28 08/31/19 16:00 97.7 103 19 121/54 (76) 100 08/31/19 16:00 Mechanical Ventilator Mechanical Ventilator 08/31/19 15:20 87 28 28 28 Intake and Output 08/31/19 09/01/19 19:00 07:00 Intake Total 40 ml 420 ml Output Total 1000 ml Balance -960 ml 420 ml Free Water 60 ml Tube Feeding 40 ml 360 ml Hemodialysis UF 1000 ml # Bowel Movements 2 2 Laboratory Tests 08/31/19 23:48: POC Whole Blood Glucose 152H 09/01/19 03:50: White Blood Count 10.2, Red Blood Count 3.19L, Hemoglobin 8.6L, Hematocrit 28.4L , Mean Corpuscular Volume 89, Mean Corpuscular Hemoglobin 26.9L, Mean Corpuscular Hemoglobin Concent 30.2L, Red Cell Distribution Width 18.1H, Platelet Count 451H, Mean Platelet Volume 5.9L, Neutrophils (%) (Auto) 59.5, Lymphocytes (%) (Auto) 25.3, Monocytes (%) (Auto) 9.3, Eosinophils (%) (Auto) 5.0H, Basophils (%) (Auto) 0.9, Sodium Level 141, Potassium Level 3.8, Chloride Level 100, Carbon Dioxide Level 31, Anion Gap 10, Blood Urea Nitrogen 19H, Creatinine 4.2H, Estimat Glomerular Filtration Rate 14.2, Glucose Level 162H, Calcium Level 9.5, Phosphorus Level 2.1L, Total Bilirubin 0.3, Aspartate Amino Transf (AST/SGOT) 23, Alanine Aminotransferase (ALT/SGPT) 20, Alkaline Phosphatase 113, Total Protein 8.0, Albumin 2.4L, Globulin 5.6, Albumin/ Globulin Ratio 0.4L 09/01/19 05:15: POC Whole Blood Glucose 163H 09/01/19 11:24: POC Whole Blood Glucose 155H 09/01/19 13:00: Alpha Fetoprotein [Pending] Height (Feet): 6 Height (Inches): 1.00 Weight (Pounds): 158 General Appearance: no apparent distress Neck: other - Trach and vent Cardiovascular: normal rate Respiratory/Chest: decreased breath sounds Abdomen: distended Objective No change Mic Cole MD Sep 01, 2019 13:39
[2019-09-01 16:00] VITALS: BP 138/93
[2019-09-01] MEDS ORDERED: Tubing IV Secondary IV ONE (18:03)
[2019-09-01] MEDS ORDERED: NS Irrig 1000ml ONE (18:03)
[2019-09-01] MEDS ORDERED: NS 275ml ONE (18:03)
--- NOTE | 2019-09-01 20:36 | Surgery Progress Note ---
Surgery Progress Note Subjective Procedure Performed Insertion of left subclavian temporary hemodialysis catheter Tracheostomy exchange 8 English Sharee Additional Comments late entry plan d/c today per pcp will need permacath soon plan to remove temp cath and place permacath Objective Last 24 Hour Vital Signs Date Time Temp Pulse Resp B/P (MAP) Pulse Ox O2 Delivery O2 Flow Rate FiO2 09/01/19 16:00 28 09/01/19 16:00 82 09/01/19 16:00 Mechanical Ventilator Mechanical Ventilator 09/01/19 16:00 97.5 100 26 138/93 (108) 100 09/01/19 14:35 86 26 28 09/01/19 12:00 28 09/01/19 12:00 Mechanical Ventilator Mechanical Ventilator 09/01/19 12:00 97.7 100 24 138/72 (94) 100 09/01/19 11:41 71 09/01/19 10:46 84 26 28 09/01/19 08:20 88 22 28 09/01/19 08:20 100 09/01/19 08:00 95 09/01/19 08:00 28 09/01/19 08:00 Mechanical Ventilator Mechanical Ventilator 09/01/19 08:00 97.9 99 28 109/75 (86) 99 09/01/19 07:22 87 25 28 09/01/19 04:00 Mechanical Ventilator Mechanical Ventilator 09/01/19 04:00 28 09/01/19 04:00 98.6 79 24 124/69 (87) 100 09/01/19 04:00 114 09/01/19 03:17 100 26 28 09/01/19 00:00 100 09/01/19 00:00 98.8 99 26 131/61 (84) 100 09/01/19 00:00 Mechanical Ventilator Mechanical Ventilator 09/01/19 00:00 28 08/31/19 23:30 105 26 28 I&O Intake and Output 08/31/19 09/01/19 19:00 07:00 Intake Total 40 ml 420 ml Output Total 1000 ml Balance -960 ml 420 ml Free Water 60 ml Tube Feeding 40 ml 360 ml Hemodialysis UF 1000 ml # Bowel Movements 2 2 Dressing: other Wound: other Drains: other Cardiovascular: RSR Respiratory: decreased breath sounds Abdomen: soft, non-tender, present bowel sounds Extremities: no cyanosis Laboratory Tests Test 08/31/19 23:48 09/01/19 03:50 09/01/19 05:15 09/01/19 11:24 POC Whole Blood Glucose 152 MG/DL (74-106) H 163 MG/DL (74-106) H 155 MG/DL (74-106) H White Blood Count 10.2 K/UL (4.8-10.8) Red Blood Count 3.19 M/UL (4.70-6.10) L Hemoglobin 8.6 G/DL (14.2-18.0) L Hematocrit 28.4 % (42.0-52.0) L Mean Corpuscular Volume 89 FL (80-99) Mean Corpuscular Hemoglobin 26.9 PG (27.0-31.0) L Mean Corpuscular Hemoglobin Concent 30.2 G/DL (32.0-36.0) L Red Cell Distribution Width 18.1 % (11.6-14.8) H Platelet Count 451 K/UL (150-450) H Mean Platelet Volume 5.9 FL (6.5-10.1) L Neutrophils (%) (Auto) 59.5 % (45.0-75.0) Lymphocytes (%) (Auto) 25.3 % (20.0-45.0) Monocytes (%) (Auto) 9.3 % (1.0-10.0) Eosinophils (%) (Auto) 5.0 % (0.0-3.0) H Basophils (%) (Auto) 0.9 % (0.0-2.0) Sodium Level 141 MMOL/L (136-145) Potassium Level 3.8 MMOL/L (3.5-5.1) Chloride Level 100 MMOL/L (98-107) Carbon Dioxide Level 31 MMOL/L (21-32) Anion Gap 10 mmol/L (5-15) Blood Urea Nitrogen 19 mg/dL (7-18) H Creatinine 4.2 MG/DL (0.55-1.30) H Estimat Glomerular Filtration Rate 14.2 mL/min (>60) Glucose Level 162 MG/DL (74-106) H Calcium Level 9.5 MG/DL (8.5-10.1) Phosphorus Level 2.1 MG/DL (2.5-4.9) L Total Bilirubin 0.3 MG/DL (0.2-1.0) Aspartate Amino Transf (AST/SGOT) 23 U/L (15-37) Alanine Aminotransferase (ALT/SGPT) 20 U/L (12-78) Alkaline Phosphatase 113 U/L (46-116) Total Protein 8.0 G/DL (6.4-8.2) Albumin 2.4 G/DL (3.4-5.0) L Globulin 5.6 g/dL Albumin/Globulin Ratio 0.4 (1.0-2.7) L Test 09/01/19 13:00 Alpha Fetoprotein Pending Plan Problems: (1) Suspected COVID-19 virus infection (2) HTN (hypertension) (3) CASSANDRA (acute kidney injury) Assessment & Plan: Needs urgent HD needs access patient okay and consented see note will follow with recs new line placed discussed with team and nephrology HD line functional when checked has TPA now please use appropriately Cathflo used again this flow during dialysis on 430 was low. Will monitor may need line change / plan for HD as per renal may need to take fluid off with HD edema anasarca dressings saturated and changed will monitor cont with HD IJ left line placed for HD given extent of prior line in place. leukocytosis blood cx negative may need to change out line new line okay HD going well Continue HD as tolerated May need pressors for HD as needed (4) Anemia in chronic kidney disease (CKD) (5) Anemia (6) Renal failure (7) Suspected COVID-19 virus infection Assessment & Plan: Pt deconditioned and despite all skin preventions Pt noted to have developed several pressure injuries. . Stable dry eschar noted to clefts of R and L ears. No erythema noted . DTPI noted to L trochanter. Base of injury is maroon in colour with marginal erythema along borders. Partially opened DTPI Sacrum, R and L Buttocks. Base of wound is maroon with two small open wounds L sacrum and L buttocks. Pt has an APM/MOMO Mattress overlay and is being positioned with pillows as per tolerance and within protocols. worsening despite medical efforts will cont to provide therapy Tx.Plan: Apply Cavilon Skin Barrier to both ears Daily and prn. Apply Moisture Barrier Paste to Sacrum,R and L Buttocks. Cover with Optifoam drsgs. Change every 3 days and PRN. Apply Cavilon Skin Barrier to R and L trochanter. Cover each site with Optifoam drsgs.Change every 7 days and PRN. Apply Cavilon Skin Barrier to both heels. Cover each heel with Optifoam drsg. Change every 7 days and prn. Off-load heels with pillow. Reposition at least every 2hours or as tolerated. APM/MOMO Mattress overlay. (8) COVID-19 Assessment & Plan: COVID + c diff negative febrile leukocytosis renal insufficiency see above cont resp care Rx as per ID worsening on vent support now cxr noted on pressors prognosis guarded repeat covid ++ weaning vent and pressors off slowly showing improvement slowly recovering will need trach as unable to wean vent safely called and spoke with [facility]. consent obtained s/p trach pending peg worsening on levo max (9) Sepsis Assessment & Plan: worsening leukocytosis febrile on pressors discussed with ID. lines evaluated and clean. he is septic on pressors and needs central access in difficult venous access patient blood cultures negative will monitor temp HD cath out now with permacath left tlc still subclavian needed line c/d/i line negative c diff negative wbc resolved improved d/c planning febrile leukocytosis hold d/c infectious work up in place yeast in cultures fevers persistent fungemia abx as per ID hold on line removal cont abx repeat cx Plan for line removal plan for line holiday will replace dialysis catheter PRN Hemodialysis line change August 20 Tracheostomy exchange 8 English Shiley due to balloon insufficiency August 20 Yaniv Mast Sep 01, 2019 20:36
--- NOTE | 2019-09-02 18:50 | Discharge Summary ---
Discharge Summary Discharge Summary _ DATE OF ADMISSION: 05/28/2019 DATE OF DISCHARGE: 09/01/2019 DISCHARGED BY: Dr. Mulligan REASON FOR ADMISSION: 69 years old male, resident of senior care facility, with past medical history of diabetes mellitus, hypertension, coronary artery disease, COPD, schizophrenia, renal disease, HCV presented from the facility where many positive cases of COVID-19 were identified. Patient presented with fever, cough and shortness of breath. Patient was tachypneic, febrile and hypoxic. Laboratory work-up revealed leukopenia , anemia, lymphopenia. Glucose 145. Lactic acid 0.5. Stable electrolytes. BUN 75, creatinine 8.1. AST 58 , ALT 43. D-dimer 1.94. Troponin negative initially. EKG revealed sinus rhythm, no acute ischemic changes Albumin 2.7 . Chest x-ray revealed diffuse patchy opacity and pulmonary edema. Urinalysis revealed +4 protein, +2 glucose, no evidence of urinary tract infection. Patient was swabbed for COVID-19. Patient admitted with suspected COVID-19 infection, renal failure and anemia. CONSULTANTS: universal branch consultant Dr. Dunn pulmonary Dr. Mckeon ID specialist Dr. Ted Leyva GI specialist Dr. Ramires wood gluer Dr. Cole obiee architect/oncologist Dr. Cabral surgery Dr. Mast psychiatrist Dr Pimentel [facility] COURSE: Patient admitted to isolation room Supplemental oxygen provided and titrated to keep pulse oximetry above 92%. Pulmonary toilet provided. Patient started on empiric antibiotics. Inflammatory markers were followed-up. COVID-19 on 05/27 was positive. Follow-up troponin levels were elevated. Levels appeared to be low and flat. Per universal branch consultant patient had NSTEMI type II due to renal failure. Antiplatelet therapy with aspirin and beta-blockade provided. Echocardiogram revealed preserved ejection fraction of 60%. Renal parameters and electrolytes were closely monitored. Electrolytes corrected as needed, and nephrotoxic's were avoided. Patient declined renal ultrasound. Patient was provided with renal diet. Urine studies were done. Patient required initiation of hemodialysis. General surgeon subsequently inserted temporary hemodialysis catheter . Patient subsequently started on hemodialysis with close monitoring of volumes, electrolytes and renal parameters. On 06/11 patient required emergency intubation due to worsening respiratory failure. Chest x-ray confirmed placement of endotracheal tube. Patient was transferred to ICU. Ventilator support provided. Patient was followed-up with ABG and chest x-ray. On 06/21 endotracheal tube was replaced with a new one, since patient was not getting his volumes . After replacement with new endotracheal tube there was a good tidal volume. X-ray confirmed placement of the tube , no pneumothorax. Patient developed septic shock . Subsequently beta-sonia was discontinued . Patient was on pressor, titrated to keep mean arterial blood pressure above 65. Patient was able to be weaned from pressors. Midodrine initiated for blood pressure support. Antibiotic provided as per ID recommendation . patient demonstrated persistent leukocytosis and intermittent fevers. Blood culture initially 1 out of 2 showed staph coag negative. Sputum culture initially was negative. Patient was tested periodically for COVID-19 : 05/27, 05/31, 06/05, 06/09, 06/17, 06/19 , 06/23, 06/27, 07/03, 07/15, 07/29 were all positive. Started from the 07/26 test was negative as well as on 08/04, 08/05 and 08/24. Patient did not tolerate weaning protocol. Patient subsequently undergone tracheostomy placement on 07/07. Tracheostomy care provided. Surgeon closely followed. Patient continued to have persistent leukocytosis. Sputum culture revealed MRSA and Bria. Blood culture revealed Staph epidermidis. Antibiotic provided as per ID recommendation. Repeated blood culture on 07/20 were negative. Sputum culture on 08/03 still revealed MRSA . Blood culture on 08/08 revealed Staph epidermidis. Patient undergone on 08/01 permanent hemodialysis catheter placement by interventional radiology due to need for long-term dialysis. Due to persistent Staph epidermidis in blood, hemodialysis catheter was discontinued. Culture tip was positive for Bria . Repeated blood culture were positive for Bria as well. After permanent hemodialysis catheter was discontinued , patient received another temporary hemodialysis catheter, inserted by general surgeon , which later was removed as well . Culture tip of the catheter was negative. Blood culture on 08/22 were negative. Patient will need additional 20 days of fluconazole at the facility as advised by ID specialist. Patient undergone EGD and placement of PEG on 07/12. Patient tolerated procedure well . Tube feeding formula and goal rate provided as per registered dietitian recommendation. Strict aspiration /reflux precaution maintained. G-tube site care provided. G-tube feeding tolerance was monitored. Patient also undergone tracheostomy exchange to [facility] by general surgeon. Stool for C difficile was negative. Symptomatic treatment provided. Patient had several pressure injuries. Wound care provided as per surgeon recommendation. Hemodynamic status was closely monitored, remained stable after pressors stopped and started on Midodrine, Fevers and leukocytosis resolved . Hemoglobin and hematocrit were closely monitored with goal to keep hemoglobin above 7 . Patient undergone transfusion of 3 units of packed red blood cells while in the hospital. Prior to discharge hemoglobin 8.6 , hematocrit 28.4. Stool for occult blood was negative. Supportive care provided . Bowel regimen instituted. Placement was eventually arranged to long-term acute care [facility]/ [facility] for further management. Patient was stable for transfer. FINAL DIAGNOSES: Confirmed COVID-19 infection Sepsis due to SARS COV 2 infection Septic shock Acute respiratory failure requiring intubation Failure to wean s/p tracheostomy placement Fungemia Staph coagulase negative bacteremia COVID-19 pneumonia MRSA pneumonia NSTEMI type II -due to renal failure Acute renal failure superimposed on chronic kidney disease Acute encephalopathy Anemia in chronic kidney disease Diarrhea, stool C. difficile negative Dysphagia, status post PEG placement COPD History of hypertension Hypothyroidism Hepatitis C Hyperlipidemia Major depression DISCHARGE MEDICATIONS: List of medication was sent to accepting facility DISCHARGE INSTRUCTIONS: Patient was transferred to [facility] for further management. I have been assigned to dictate discharge summary for this account. I was not involved in the patient's management. Ruba Stockton NP Sep 02, 2019 18:50
== END 2019-09-01 18:04 | DRG 4 ==
LOC: EDBD 11:52 → EMR 13:25 → 2W 15:13 → EDBEDREQ 16:09 → 4E 05-30 19:15 → 2W 06-01 20:10 → ICU 06-06 21:07 → 2W 08-04 21:14 → 2E 08-23 13:26 → 2W 08-23 13:28
PROC: 5A1D70Z Performance of Urinary Filtration, Intermittent, Less than 6 Hours Per Day (ICD-10-PCS; principal; 2019-06-01)
PROC: 06HM33Z Insertion of Infusion Device into Right Femoral Vein, Percutaneous Approach (ICD-10-PCS; 2019-06-02)
PROC: 06PYX3Z Removal of Infusion Device from Lower Vein, External Approach (ICD-10-PCS; 2019-06-04)
PROC: 06HM33Z Insertion of Infusion Device into Right Femoral Vein, Percutaneous Approach (ICD-10-PCS; 2019-06-04)
PROC: 5A1955Z Respiratory Ventilation, Greater than 96 Consecutive Hours (ICD-10-PCS; 2019-06-12)
PROC: 05H533Z Insertion of Infusion Device into Right Subclavian Vein, Percutaneous Approach (ICD-10-PCS; 2019-06-12)
PROC: 0BH17EZ Insertion of Endotracheal Airway into Trachea, Via Natural or Artificial Opening (ICD-10-PCS; 2019-06-12)
PROC: 06HM33Z Insertion of Infusion Device into Right Femoral Vein, Percutaneous Approach (ICD-10-PCS; 2019-06-14)
PROC: 06PYX3Z Removal of Infusion Device from Lower Vein, External Approach (ICD-10-PCS; 2019-06-14)
PROC: 0B21XEZ Change Endotracheal Airway in Trachea, External Approach (ICD-10-PCS; 2019-06-22)
PROC: 0B110F4 Bypass Trachea to Cutaneous with Tracheostomy Device, Open Approach (ICD-10-PCS; 2019-07-08)
PROC: 05HN33Z Insertion of Infusion Device into Left Internal Jugular Vein, Percutaneous Approach (ICD-10-PCS; 2019-07-13)
PROC: 0DH63UZ Insertion of Feeding Device into Stomach, Percutaneous Approach (ICD-10-PCS; 2019-07-13)
PROC: B544ZZA Ultrasonography of Left Jugular Veins, Guidance (ICD-10-PCS; 2019-07-13)
PROC: 06PYX3Z Removal of Infusion Device from Lower Vein, External Approach (ICD-10-PCS; 2019-07-14)
PROC: 0JH63XZ Insertion of Tunneled Vascular Access Device into Chest Subcutaneous Tissue and Fascia, Percutaneous Approach (ICD-10-PCS; 2019-07-30)
PROC: 05HM33Z Insertion of Infusion Device into Right Internal Jugular Vein, Percutaneous Approach (ICD-10-PCS; 2019-07-30)
PROC: B513ZZA Fluoroscopy of Right Jugular Veins, Guidance (ICD-10-PCS; 2019-07-30)
PROC: 05PYX3Z Removal of Infusion Device from Upper Vein, External Approach (ICD-10-PCS; 2019-07-31)
PROC: 0JPVXXZ Removal of Tunneled Vascular Access Device from Upper Extremity Subcutaneous Tissue and Fascia, External Approach (ICD-10-PCS; 2019-08-19)
PROC: 05H633Z Insertion of Infusion Device into Left Subclavian Vein, Percutaneous Approach (ICD-10-PCS; 2019-08-21)
PROC: 0B21XFZ Change Tracheostomy Device in Trachea, External Approach (ICD-10-PCS; 2019-08-21)
DX: U07.1 COVID-19 (principal); A41.89 Other specified sepsis; J12.89 Other viral pneumonia; N18.6 End stage renal disease; R65.21 Severe sepsis with septic shock; J15.212 Pneumonia due to Methicillin resistant Staphylococcus aureus; J80 Acute respiratory distress syndrome; I21.A1 Myocardial infarction type 2; B37.7 Candidal sepsis; N17.9 Acute kidney failure, unspecified; I12.0 Hypertensive chronic kidney disease with stage 5 chronic kidney disease or end stage renal disease; G93.40 Encephalopathy, unspecified; J44.0 Chronic obstructive pulmonary disease with (acute) lower respiratory infection; Z99.11 Dependence on respirator [ventilator] status; F09 Unspecified mental disorder due to known physiological condition; E11.22 Type 2 diabetes mellitus with diabetic chronic kidney disease; Z99.2 Dependence on renal dialysis; N40.0 Benign prostatic hyperplasia without lower urinary tract symptoms; D63.1 Anemia in chronic kidney disease; E78.5 Hyperlipidemia, unspecified; F32.9 Major depressive disorder, single episode, unspecified; E03.9 Hypothyroidism, unspecified; R00.0 Tachycardia, unspecified; R13.10 Dysphagia, unspecified; I48.91 Unspecified atrial fibrillation; R19.7 Diarrhea, unspecified; D69.6 Thrombocytopenia, unspecified; B19.20 Unspecified viral hepatitis C without hepatic coma; E79.0 Hyperuricemia without signs of inflammatory arthritis and tophaceous disease; K59.00 Constipation, unspecified; L89.156 Pressure-induced deep tissue damage of sacral region; L89.326 Pressure-induced deep tissue damage of left buttock
CPT/HCPCS: 36415; 36600; 71045; 74018; 76000; 80048; 80053; 80061; 80076; 80202; 81003; 82105; 82270; 82533; 82550; 82553; 82607; 82728; 82746; 82803; 82962; 82977; 83036; 83540; 83550; 83605; 83615; 83735; 83880; 84100; 84443; 84478; 84484; 84550; 85007; 85025; 85044; 85379; 85610; 85730; 86140; 86703; 86705; 86706; 86707; 86709; 86710; 86803; 86850; 86900; 86901; 86920; 87040; 87070; 87081; 87181; 87205; 87324; 87340; 87635; 89050; 93005; 93306; 94002; 94003; 94150; 94640; 99285; C9399; J1815; J2765; J7030; J8499